=== PATIENT | female | born 1965 | race Caucasian/White ===

== ENCOUNTER 2017-11-04 13:02 | Outpatient (RCR) | payer MEDICARE, MEDICAID, SELFPAY ==
[2017-11-04 14:38] LABS: Absolute Lymphocyte Count 2.28 X10^3/ul (0.83-4.51); Absolute Neutrophil Count 7.5 X10^3/uL (2.0-7.7); Basophil# 0.02 X10^3/uL; Basophil% 0.2 % (0-1); Eosinophil# 0.01 X10^3/uL; Eosinophils% 0.1 % (0-5); Hematocrit 38.1 % (37-47); Hemoglobin 12.4 g/dl (12.0-15.0); Lymphocyte # 2.28 X10^3/ul (4.0); Lymphocyte % 21.8 % (19-41); Mean Corp Hgb Conc 32.5 g/gl (32-36); Mean Corpuscular Volume 89.2 fL (81-99); Mean Platelet Vol. 10.8 fl (6.2-12.0); Monocyte# 0.64 X10^3/uL; Monocyte% 6.1 % (0-10); Neutrophil # 7.49 X10^3/uL (2.7-7.7); Neutrophil % 71.4 % (47-70); Platelet Count 174 K/mm3 (150-450); RBC Distribution Width CV 15.2 % (11.6-14.6); RBC Distribution Width SD 49.5 fl (35.1-43.9); Red Blood Count 4.27 M/mm3 (4.2-5.4); White Blood Count 10.5 K/mm3 (4.4-11.0)
[2017-11-04 14:42] LABS: POSITIVE COUNT NO; POSITIVE DIFFERENTIAL NO; POSITIVE MORPHOLOGY NO
== END 2017-11-04 13:20 | disposition home or self-care (01) ==
LOC: LAB 13:02
PROVIDERS: Family Provider Family Medicine; PCP Family Medicine; Visit Provider Psychiatry & Neurology Psychiatry
DX: F20.0 Paranoid schizophrenia (principal); Z79.899 Other long term (current) drug therapy
CPT/HCPCS: 36415; 85025

== ENCOUNTER → 2017-11-24 16:41 | Outpatient (CLI) | payer MEDICARE, MEDICAID, SELFPAY ==
[2017-11-24 18:23] LABS: Anion Gap 10 (5-15); BUN 9 mg/dL (7-18); BUN/Creat Ratio 12.5 RATIO (10-20); Calcium,Total 9.1 mg/dL (8.5-10.1); Chloride 96 mmol/L (98-107); Creatinine, Serum 0.72 mg/dL (0.55-1.02); EST Glomerular Filtration Rate 90 mL/min (>60); Est Glom Filt Rate - Afr Amer 109 mL/min (>60); Glucose 221 mg/dL (74-106); Potassium 3.8 mmol/L (3.5-5.1); Sodium Level 135 mmol/L (136-145)
== END ==
PROVIDERS: Family Provider Family Medicine; PCP Family Medicine; Visit Provider Family Medicine
DX: E87.1 Hypo-osmolality and hyponatremia (principal)
CPT/HCPCS: 80048

== ENCOUNTER 2017-11-25 08:22 | Outpatient (RCR) | payer MEDICARE, MEDICAID, SELFPAY ==
[2017-10-17 14:59] VITALS: BMI 34.1
[2017-10-22 07:59] VITALS: BP 131/84
[2017-11-25 09:46] LABS: Absolute Lymphocyte Count 1.77 X10^3/ul (0.83-4.51); Absolute Neutrophil Count 9.2 X10^3/uL (2.0-7.7); Basophil# 0.08 X10^3/uL; Basophil% 0.7 % (0-1); Hematocrit 39.8 % (37-47); Hemoglobin 12.9 g/dl (12.0-15.0); Lymphocyte # 1.77 X10^3/ul (4.0); Mean Corp Hgb Conc 32.4 g/gl (32-36); Mean Corpuscular Hgb 29.1 pg (27.0-32.0); Mean Corpuscular Volume 89.6 fL (81-99); Monocyte% 5.9 % (0-10); Neutrophil # 9.24 X10^3/uL (2.7-7.7); Neutrophil % 78.2 % (47-70); POSITIVE COUNT NO; POSITIVE DIFFERENTIAL NO; POSITIVE MORPHOLOGY NO; Platelet Count 211 K/mm3 (150-450); RBC Distribution Width CV 15.2 % (11.6-14.6); RBC Distribution Width SD 49.3 fl (35.1-43.9); Red Blood Count 4.44 M/mm3 (4.2-5.4); White Blood Count 11.8 K/mm3 (4.4-11.0)
== END 2017-11-25 09:00 | disposition home or self-care (01) ==
LOC: LAB 08:22
PROVIDERS: Family Provider Family Medicine; PCP Family Medicine; Visit Provider Psychiatry & Neurology Psychiatry
DX: F20.0 Paranoid schizophrenia (principal); Z79.899 Other long term (current) drug therapy
CPT/HCPCS: 36415; 85025

== ENCOUNTER → 2017-11-27 16:40 | Outpatient (CLI) | payer MEDICARE, MEDICAID, SELFPAY ==
[2017-11-27 17:38] LABS: Anion Gap 11 (5-15); BUN 13 mg/dL (7-18); BUN/Creat Ratio 18.7 RATIO (10-20); Calcium,Total 9.2 mg/dL (8.5-10.1); Chloride 100 mmol/L (98-107); EST Glomerular Filtration Rate 93 mL/min (>60); Est Glom Filt Rate - Afr Amer 113 mL/min (>60); Glucose 153 mg/dL (74-106); Magnesium 1.8 mg/dL (1.6-2.6); Potassium 3.9 mmol/L (3.5-5.1); Sodium Level 135 mmol/L (136-145); Thyroid Stim Hormone (TSH) 1.44 uIU/mL (0.358-3.74)
== END ==
PROVIDERS: Family Provider Family Medicine; PCP Family Medicine; Visit Provider Internal Medicine Cardiovascular Disease
DX: R00.2 Palpitations (principal)
CPT/HCPCS: 80048; 83735; 84443

== ENCOUNTER 2017-12-25 08:32 | Outpatient (RCR) | payer MEDICARE, MEDICAID, SELFPAY ==
[2017-12-25 09:14] LABS: Absolute Lymphocyte Count 2.04 X10^3/ul (0.83-4.51); Absolute Neutrophil Count 6.7 X10^3/uL (2.0-7.7); Basophil# 0.03 X10^3/uL; Basophil% 0.3 % (0-1); Hematocrit 40.4 % (37-47); Hemoglobin 13.1 g/dl (12.0-15.0); Lymphocyte # 2.04 X10^3/ul (4.0); Lymphocyte % 21.5 % (19-41); Mean Corp Hgb Conc 32.4 g/gl (32-36); Mean Corpuscular Volume 89.6 fL (81-99); Mean Platelet Vol. 10.2 fl (6.2-12.0); Monocyte# 0.68 X10^3/uL; Monocyte% 7.2 % (0-10); Neutrophil # 6.73 X10^3/uL (2.7-7.7); Neutrophil % 70.9 % (47-70); Platelet Count 214 K/mm3 (150-450); RBC Distribution Width CV 14.9 % (11.6-14.6); RBC Distribution Width SD 48.9 fl (35.1-43.9); Red Blood Count 4.51 M/mm3 (4.2-5.4); White Blood Count 9.5 K/mm3 (4.4-11.0)
[2017-12-25 09:20] LABS: POSITIVE COUNT NO; POSITIVE DIFFERENTIAL NO; POSITIVE MORPHOLOGY NO
== END 2017-12-25 09:00 | disposition home or self-care (01) ==
LOC: LAB 08:32
PROVIDERS: Family Provider Family Medicine; PCP Family Medicine; Visit Provider Psychiatry & Neurology Psychiatry
DX: F20.0 Paranoid schizophrenia (principal); Z79.899 Other long term (current) drug therapy
CPT/HCPCS: 36415; 85025

== ENCOUNTER → 2018-01-20 12:21 | Outpatient (CLI) | payer MEDICARE, MEDICAID, SELFPAY ==
[2018-01-20 12:41] LABS: Absolute Lymphocyte Count 1.77 X10^3/ul (0.83-4.51); Absolute Neutrophil Count 6.4 X10^3/uL (2.0-7.7); Basophil# 0.03 X10^3/uL; Basophil% 0.3 % (0-1); Eosinophil# 0.01 X10^3/uL; Eosinophils% 0.1 % (0-5); Hematocrit 39.9 % (37-47); Hemoglobin 12.8 g/dl (12.0-15.0); Lymphocyte # 1.77 X10^3/ul (4.0); Lymphocyte % 20.2 % (19-41); Mean Corp Hgb Conc 32.1 g/gl (32-36); Mean Corpuscular Volume 90.3 fL (81-99); Monocyte# 0.56 X10^3/uL; Monocyte% 6.4 % (0-10); Neutrophil # 6.39 X10^3/uL (2.7-7.7); Neutrophil % 72.8 % (47-70); Platelet Count 206 K/mm3 (150-450); RBC Distribution Width CV 14.5 % (11.6-14.6); Red Blood Count 4.42 M/mm3 (4.2-5.4); White Blood Count 8.8 K/mm3 (4.4-11.0)
[2018-01-20 12:48] LABS: POSITIVE COUNT NO; POSITIVE DIFFERENTIAL NO; POSITIVE MORPHOLOGY NO
[2018-01-20 12:50] LABS: AST(SGOT) 36 U/L (15-37); Alanine Aminotransfer ALT/SGPT 67 U/L (13-56); Albumin, Serum 3.8 g/dL (3.2-5.0); Alkaline Phosphatase 135 U/L (45-117); Anion Gap 10 (5-15); BUN 7 mg/dL (7-18); BUN/Creat Ratio 10.9 RATIO (10-20); Bilirubin, Direct 0.08 mg/dL (0.00-0.30); CPK Total, Creatine Kinase 37 U/L (26-192); Chloride 102 mmol/L (98-107); Cholesterol 166 mg/dL (200); Creatinine, Serum 0.64 mg/dL (0.55-1.02); EST Glomerular Filtration Rate 102 mL/min (>60); Est Glom Filt Rate - Afr Amer 123 mL/min (>60); Globulin 3.9 g/dL (2.2-4.2); Glucose 138 mg/dL (74-106); High Density Lipoprotein 54 mg/dL; Iron 46 ug/dL (50-170); Iron Binding Capacity,Total 340 ug/dL (250-450); Potassium 4.4 mmol/L (3.5-5.1); Protein, Total 7.7 g/dL (6.4-8.2); Sodium Level 138 mmol/L (136-145); Triglycerides 210 mg/dL; Very Low Density Lipoprotein 42 mg/dL (5-40)
[2018-01-20 12:56] LABS: Hemoglobin A1c 6.8 % (4.2-6.3)
[2018-01-21 08:21] LABS: Vitamin D,25 Hydroxy 39.6 ng/mL (29.95-100.01)
== END ==
PROVIDERS: Family Provider Family Medicine; PCP Family Medicine; Visit Provider Family Medicine
DX: E55.9 Vitamin D deficiency, unspecified (principal); E78.2 Mixed hyperlipidemia; E11.21 Type 2 diabetes mellitus with diabetic nephropathy; Z79.4 Long term (current) use of insulin; E87.79 Other fluid overload; G25.81 Restless legs syndrome
CPT/HCPCS: 80048; 80061; 80076; 82306; 82550; 83036; 83540; 83550; 85025

== ENCOUNTER 2018-01-22 10:46 | Outpatient (RCR) | payer MEDICARE, MEDICAID, SELFPAY ==
[2018-01-22 11:47] LABS: Absolute Lymphocyte Count 2.39 X10^3/ul (0.83-4.51); Absolute Neutrophil Count 6.1 X10^3/uL (2.0-7.7); Basophil# 0.01 X10^3/uL; Basophil% 0.1 % (0-1); Eosinophil# 0.01 X10^3/uL; Eosinophils% 0.1 % (0-5); Hematocrit 39.3 % (37-47); Hemoglobin 12.3 g/dl (12.0-15.0); Lymphocyte # 2.39 X10^3/ul (4.0); Lymphocyte % 26.5 % (19-41); Mean Corp Hgb Conc 31.3 g/gl (32-36); Mean Corpuscular Hgb 28.2 pg (27.0-32.0); Mean Corpuscular Volume 90.1 fL (81-99); Monocyte# 0.47 X10^3/uL; Monocyte% 5.2 % (0-10); Neutrophil # 6.12 X10^3/uL (2.7-7.7); Platelet Count 206 K/mm3 (150-450); RBC Distribution Width CV 14.5 % (11.6-14.6); RBC Distribution Width SD 47.6 fl (35.1-43.9); Red Blood Count 4.36 M/mm3 (4.2-5.4)
[2018-01-22 11:50] LABS: POSITIVE COUNT NO; POSITIVE DIFFERENTIAL NO; POSITIVE MORPHOLOGY NO
== END 2018-01-22 11:00 | disposition home or self-care (01) ==
LOC: LAB 10:46
PROVIDERS: Family Provider Family Medicine; PCP Family Medicine; Visit Provider Psychiatry & Neurology Psychiatry
DX: F20.0 Paranoid schizophrenia (principal); Z79.899 Other long term (current) drug therapy
CPT/HCPCS: 36415; 85025

== ENCOUNTER 2018-02-08 09:44 | Emergency (ER) | payer MEDICARE, MEDICAID, SELFPAY ==
[2018-02-08 09:45] VITALS: BP 143/89; PULSE 115; RESP 18; TEMP 36.5; O2SAT 95; BMI 36.2
--- NOTE | 2018-02-08 10:11 | ED.VISSUMM ---
- ER Visit Summary Date of Service: 02/08/18 Chief Complaint: [Foreign body sensation left eye] History of Present Illness: The patient is a 52 F [presents the emergency department from urgent care with left eye discomfort that started this morning. Patient states that she woke up this morning and felt like there was something in her eye so she rubbed her eye vigorously. Patient developed discomfort. She was seen at the urgent care and had fluorescein dye instilled as well as tetracaine and her pain significantly improved. Apparently there was uptake of floor seen and was sent over to ER for slit-lamp exam. Patient denies any photophobia or visual change at this time.] Physical Examination: [HEENT-PERRLA, EOMI. Cranial nerves II through XII grossly intact. TMs clear. Mucous membranes moist. No adenopathy. Left eye-there is focal conjunctival injection medially. Eyelids were everted no foreign bodies noted. No floor seen available in the emergency department. I did perform a slit lamp exam and I do not see any defects in the cornea or abrasions. Patient does have superficial abrasion noted of the medial conjunctiva. Cardiovascular-regular rate and rhythm without murmur or ectopy Lungs-clear to auscultation, chest wall stable without crepitus or subcu emphysema Abdomen-normoactive bowel sounds, soft, nontender, no rebound or rigidity, no peritoneal signs. Extremities-intact ?4, normal range of motion, normal pulses, atraumatic] Test Results: [None indicated] Emergency Department Course and Treatment: Patient will be started on gentamicin ophthalmic drops [] Treatment Plan: [Patient to follow-up with director index within the next 1-2 days. Patient actually has an appointment scheduled with director index in 2 days. Patient advised to call ophthalmology tomorrow and if she still has significant discomfort to be seen tomorrow.] Disposition: [Discharged home in stable condition] Impression: [Conjunctivitis Left conjunctival abrasion] This note was generated with [employer] dictation software. It may contain incorrect words, spelling, and punctuation that were not noted in review of the chart prior to signing ED Disposition - Plan for ED Patient: Chief Complaint: Eye Problem Referrals: Boris Vance MD [Primary Care Provider] -
--- NOTE | 2018-02-08 10:13 | ED.DEP ---
ED Disposition - Plan for ED Patient: Chief Complaint: Eye Problem Prescriptions: Hydrocodone Bitart/Apap 5-325 [[place] 5/325] 1 - 2 tab PO Q4H PRN PRN 3 Days #12 tab PRN Reason: Pain Referrals: Boris Vance MD [Primary Care Provider] - Additional Instructions: you have conjunctivitis and a scratch on your eye
--- NOTE | 2018-02-08 10:16 | ED.DEP ---
ED Disposition - Plan for ED Patient: Chief Complaint: Eye Problem Prescriptions: Hydrocodone Bitart/Apap 5-325 [[place] 5/325] 1 - 2 tab PO Q4H PRN PRN 3 Days #12 tab PRN Reason: Pain Referrals: Boris Vance MD [Primary Care Provider] - Additional Instructions: you have conjunctivitis and a scratch on your eye
[2018-02-08] MEDS: Gentamicin Sulfate 1 OPTH.BTL 2 DRP LEFT EYE (10:20)
== END 2018-02-08 10:29 | disposition home or self-care (01) ==
PROVIDERS: Emergency Provider Emergency Medicine; Family Provider Family Medicine; PCP Family Medicine
DX: H10.32 Unspecified acute conjunctivitis, left eye (principal); S05.02XA Injury of conjunctiva and corneal abrasion without foreign body, left eye, initial encounter; X58.XXXA Exposure to other specified factors, initial encounter; Y93.89 Activity, other specified; Y92.9 Unspecified place or not applicable; F20.9 Schizophrenia, unspecified; Z79.899 Other long term (current) drug therapy
CPT/HCPCS: 99283

== ENCOUNTER 2018-02-19 08:34 | Outpatient (RCR) | payer MEDICARE, MEDICAID, SELFPAY ==
[2018-02-19 09:24] LABS: Absolute Lymphocyte Count 2.05 X10^3/ul (0.83-4.51); Absolute Neutrophil Count 4.8 X10^3/uL (2.0-7.7); Basophil# 0.02 X10^3/uL; Basophil% 0.3 % (0-1); Eosinophil# 0.01 X10^3/uL; Eosinophils% 0.1 % (0-5); Hematocrit 39.7 % (37-47); Lymphocyte # 2.05 X10^3/ul (4.0); Lymphocyte % 27.7 % (19-41); Mean Corp Hgb Conc 32.7 g/gl (32-36); Mean Corpuscular Hgb 29.3 pg (27.0-32.0); Mean Corpuscular Volume 89.6 fL (81-99); Mean Platelet Vol. 10.2 fl (6.2-12.0); Monocyte# 0.51 X10^3/uL; Monocyte% 6.9 % (0-10); Neutrophil # 4.78 X10^3/uL (2.7-7.7); Neutrophil % 64.7 % (47-70); Platelet Count 195 K/mm3 (150-450); RBC Distribution Width CV 14.1 % (11.6-14.6); RBC Distribution Width SD 45.3 fl (35.1-43.9); Red Blood Count 4.43 M/mm3 (4.2-5.4); White Blood Count 7.4 K/mm3 (4.4-11.0)
[2018-02-19 09:28] LABS: POSITIVE COUNT NO; POSITIVE DIFFERENTIAL NO; POSITIVE MORPHOLOGY NO
== END 2018-02-19 09:00 | disposition home or self-care (01) ==
LOC: LAB 08:34
PROVIDERS: Family Provider Family Medicine; PCP Family Medicine; Visit Provider Psychiatry & Neurology Psychiatry
DX: F20.0 Paranoid schizophrenia (principal); Z79.899 Other long term (current) drug therapy
CPT/HCPCS: 36415; 85025

== ENCOUNTER → 2018-03-16 16:17 | Outpatient (CLI) | payer MEDICARE, MEDICAID, SELFPAY ==
--- NOTE | 2018-03-16 16:17 | DT_ITS ---
This patient was seen during an EMR downtime March 16, 2018 - March 23, 2018. This patient may have a combination of paper and electronic documentation or all paper documentation. All documentation is viewable within the e-chart portion of [employer] for each patient visit.
[2018-03-20 20:56] LABS: Hematocrit 42.6 % (37-47); Hemoglobin 13.6 g/dl (12.0-15.0); Mean Corp Hgb Conc 31.9 g/gl (32-36); Mean Corpuscular Hgb 28.6 pg (27.0-32.0); Mean Corpuscular Volume 89.7 fL (81-99); Mean Platelet Vol. 11.1 fl (6.2-12.0); Platelet Count 200 K/mm3 (150-450); RBC Distribution Width CV 14.6 % (11.6-14.6); RBC Distribution Width SD 47.7 fl (35.1-43.9); Red Blood Count 4.75 M/mm3 (4.2-5.4)
[2018-03-20 20:57] LABS: Absolute Lymphocyte Count 2.64 X10^3/ul (0.83-4.51); Absolute Neutrophil Count 10.3 X10^3/uL (2.0-7.7); Basophil# 0.02 X10^3/uL; Basophil% 0.1 % (0-1); Eosinophil# 0.01 X10^3/uL; Eosinophils% 0.1 % (0-5); Lymphocyte # 2.64 X10^3/ul (4.0); Lymphocyte % 18.8 % (19-41); Monocyte# 1.01 X10^3/uL; Monocyte% 7.2 % (0-10); Neutrophil # 10.33 X10^3/uL (2.7-7.7); Neutrophil % 73.6 % (47-70); POSITIVE COUNT NO; POSITIVE DIFFERENTIAL NO; POSITIVE MORPHOLOGY NO
[2018-03-20 20:58] LABS: Anion Gap 12 (5-15); BUN 10 mg/dL (7-18); BUN/Creat Ratio 16.1 RATIO (10-20); Chloride 101 mmol/L (98-107); Creatinine, Serum 0.62 mg/dL (0.55-1.02); EST Glomerular Filtration Rate 107 mL/min (>60); Est Glom Filt Rate - Afr Amer 130 mL/min (>60); Glucose 84 mg/dL (74-106); Potassium 4.1 mmol/L (3.5-5.1); Sodium Level 138 mmol/L (136-145)
== END ==
PROVIDERS: Family Provider Family Medicine; PCP Family Medicine; Visit Provider Family Medicine
DX: R06.2 Wheezing (principal)
CPT/HCPCS: 80048; 85025

== ENCOUNTER → 2018-03-19 09:34 | Outpatient (CLI) | payer MEDICARE, MEDICAID, SELFPAY ==
--- NOTE | 2018-03-19 09:34 | DT_ITS ---
This patient was seen during an EMR downtime March 16, 2018 - March 23, 2018. This patient may have a combination of paper and electronic documentation or all paper documentation. All documentation is viewable within the e-chart portion of [employer] for each patient visit.
[2018-03-24 01:16] LABS: Hematocrit 42.7 % (37-47); Hemoglobin 13.9 g/dl (12.0-15.0); Mean Corp Hgb Conc 32.6 g/gl (32-36); Mean Corpuscular Hgb 28.6 pg (27.0-32.0); Mean Corpuscular Volume 87.9 fL (81-99); Platelet Count 233 K/mm3 (150-450); RBC Distribution Width CV 14.4 % (11.6-14.6); RBC Distribution Width SD 46.4 fl (35.1-43.9); Red Blood Count 4.86 M/mm3 (4.2-5.4); White Blood Count 13.9 K/mm3 (4.4-11.0)
[2018-03-24 01:17] LABS: Absolute Lymphocyte Count 3.95 X10^3/ul (0.83-4.51); Absolute Neutrophil Count 8.9 X10^3/uL (2.0-7.7); Basophil# 0.02 X10^3/uL; Basophil% 0.1 % (0-1); Eosinophil# 0.01 X10^3/uL; Eosinophils% 0.1 % (0-5); Lymphocyte # 3.95 X10^3/ul (4.0); Lymphocyte % 28.5 % (19-41); Mean Platelet Vol. 10.6 fl (6.2-12.0); Monocyte# 0.92 X10^3/uL; Monocyte% 6.6 % (0-10); Neutrophil # 8.94 X10^3/uL (2.7-7.7); Neutrophil % 64.4 % (47-70); POSITIVE COUNT NO; POSITIVE DIFFERENTIAL NO; POSITIVE MORPHOLOGY NO
== END ==
PROVIDERS: Family Provider Family Medicine; PCP Family Medicine
DX: Z79.899 Other long term (current) drug therapy (principal)
CPT/HCPCS: 36415; 85025

== ENCOUNTER → 2018-04-08 12:03 | Outpatient (CLI) | payer MEDICARE, MEDICAID, SELFPAY ==
[2018-04-08 12:16] LABS: Absolute Lymphocyte Count 2.13 X10^3/ul (0.83-4.51); Absolute Neutrophil Count 5.8 X10^3/uL (2.0-7.7); Basophil# 0.01 X10^3/uL; Basophil% 0.1 % (0-1); Hematocrit 41.1 % (37-47); Lymphocyte # 2.13 X10^3/ul (4.0); Lymphocyte % 25.2 % (19-41); Mean Corp Hgb Conc 31.6 g/gl (32-36); Mean Corpuscular Hgb 27.8 pg (27.0-32.0); Mean Corpuscular Volume 87.8 fL (81-99); Mean Platelet Vol. 10.7 fl (6.2-12.0); Monocyte# 0.49 X10^3/uL; Monocyte% 5.8 % (0-10); Neutrophil % 68.8 % (47-70); Platelet Count 214 K/mm3 (150-450); RBC Distribution Width CV 14.8 % (11.6-14.6); Red Blood Count 4.68 M/mm3 (4.2-5.4); White Blood Count 8.4 K/mm3 (4.4-11.0)
[2018-04-08 12:23] LABS: POSITIVE COUNT NO; POSITIVE DIFFERENTIAL NO; POSITIVE MORPHOLOGY NO
== END ==
PROVIDERS: Family Provider Family Medicine; PCP Family Medicine; Visit Provider Family Medicine
DX: D72.829 Elevated white blood cell count, unspecified (principal)
CPT/HCPCS: 85025

== ENCOUNTER → 2018-04-30 09:47 | Outpatient (CLI) | payer MEDICARE, MEDICAID, SELFPAY ==
[2018-04-30 13:20] LABS: Absolute Lymphocyte Count 2.29 X10^3/ul (0.83-4.51); Absolute Neutrophil Count 6.1 X10^3/uL (2.0-7.7); Basophil# 0.02 X10^3/uL; Basophil% 0.2 % (0-1); Eosinophil# 0.01 X10^3/uL; Eosinophils% 0.1 % (0-5); Hematocrit 39.2 % (37-47); Hemoglobin 12.9 g/dl (12.0-15.0); Lymphocyte # 2.29 X10^3/ul (4.0); Lymphocyte % 24.7 % (19-41); Mean Corp Hgb Conc 32.9 g/gl (32-36); Mean Corpuscular Hgb 28.9 pg (27.0-32.0); Mean Corpuscular Volume 87.9 fL (81-99); Mean Platelet Vol. 11.7 fl (6.2-12.0); Monocyte# 0.79 X10^3/uL; Monocyte% 8.5 % (0-10); Neutrophil # 6.13 X10^3/uL (2.7-7.7); Neutrophil % 66.3 % (47-70); POSITIVE COUNT NO; POSITIVE DIFFERENTIAL NO; POSITIVE MORPHOLOGY NO; Platelet Count 190 K/mm3 (150-450); RBC Distribution Width CV 14.8 % (11.6-14.6); RBC Distribution Width SD 46.8 fl (35.1-43.9); Red Blood Count 4.46 M/mm3 (4.2-5.4); White Blood Count 9.3 K/mm3 (4.4-11.0)
[2018-04-30 13:37] LABS: BUN 8 mg/dL (7-18); Creatinine, Serum 0.66 mg/dL (0.55-1.02); EST Glomerular Filtration Rate 99 mL/min (>60); Glucose 127 mg/dL (74-106); Hemoglobin A1c 7.5 % (4.2-6.3)
[2018-04-30 13:38] LABS: ALB/GLOB Ratio 0.9 RATIO (0.9-2.4); AST(SGOT) 20 U/L (15-37); Alanine Aminotransfer ALT/SGPT 48 U/L (13-56); Albumin, Serum 3.8 g/dL (3.2-5.0); Alkaline Phosphatase 135 U/L (45-117); Anion Gap 10 (5-15); BUN/Creat Ratio 12.1 RATIO (10-20); Calcium,Total 8.7 mg/dL (8.5-10.1); Chloride 101 mmol/L (98-107); Cholesterol 168 mg/dL (200); Est Glom Filt Rate - Afr Amer 120 mL/min (>60); Globulin 4.2 g/dL (2.2-4.2); High Density Lipoprotein 55 mg/dL; Sodium Level 135 mmol/L (136-145); Thyroid Stim Hormone (TSH) 1.17 uIU/mL (0.358-3.74); Triglycerides 173 mg/dL; Very Low Density Lipoprotein 35 mg/dL (5-40)
[2018-04-30 13:43] LABS: BNP,B-Type NATRIURETIC PEPTIDE < 2.0 pg/mL (0-100)
[2018-05-01 08:14] LABS: Vitamin D,25 Hydroxy 30.2 ng/mL (29.95-100.01)
== END ==
PROVIDERS: Family Provider Family Medicine; PCP Family Medicine; Visit Provider Family Medicine
DX: E78.2 Mixed hyperlipidemia (principal); R53.83 Other fatigue; I50.31 Acute diastolic (congestive) heart failure; E55.9 Vitamin D deficiency, unspecified; E11.21 Type 2 diabetes mellitus with diabetic nephropathy; Z79.4 Long term (current) use of insulin
CPT/HCPCS: 80053; 80061; 82306; 83036; 83880; 84443; 85025

== ENCOUNTER 2018-05-12 09:13 | Outpatient (RCR) | payer MEDICARE, MEDICAID, SELFPAY ==
[2018-04-14 09:53] LABS: Absolute Lymphocyte Count 2.26 X10^3/ul (0.83-4.51); Absolute Neutrophil Count 6.4 X10^3/uL (2.0-7.7); Basophil# 0.02 X10^3/uL; Basophil% 0.2 % (0-1); Hematocrit 40.1 % (37-47); Hemoglobin 13.1 g/dl (12.0-15.0); Lymphocyte # 2.26 X10^3/ul (4.0); Lymphocyte % 23.9 % (19-41); Mean Corp Hgb Conc 32.7 g/gl (32-36); Mean Corpuscular Hgb 28.8 pg (27.0-32.0); Mean Corpuscular Volume 88.1 fL (81-99); Mean Platelet Vol. 10.6 fl (6.2-12.0); Monocyte# 0.76 X10^3/uL; Monocyte% 8.1 % (0-10); Neutrophil # 6.38 X10^3/uL (2.7-7.7); Neutrophil % 67.6 % (47-70); Platelet Count 216 K/mm3 (150-450); RBC Distribution Width CV 14.6 % (11.6-14.6); RBC Distribution Width SD 46.7 fl (35.1-43.9); Red Blood Count 4.55 M/mm3 (4.2-5.4); White Blood Count 9.4 K/mm3 (4.4-11.0)
[2018-04-14 09:55] LABS: POSITIVE COUNT NO; POSITIVE DIFFERENTIAL NO; POSITIVE MORPHOLOGY NO
[2018-05-12 10:11] LABS: Absolute Lymphocyte Count 2.17 X10^3/ul (0.83-4.51); Absolute Neutrophil Count 8.9 X10^3/uL (2.0-7.7); Basophil# 0.01 X10^3/uL; Basophil% 0.1 % (0-1); Eosinophil# 0.01 X10^3/uL; Eosinophils% 0.1 % (0-5); Hematocrit 42.2 % (37-47); Hemoglobin 13.4 g/dl (12.0-15.0); Lymphocyte # 2.17 X10^3/ul (4.0); Lymphocyte % 18.5 % (19-41); Mean Corp Hgb Conc 31.8 g/gl (32-36); Mean Corpuscular Hgb 28.5 pg (27.0-32.0); Mean Corpuscular Volume 89.8 fL (81-99); Mean Platelet Vol. 10.1 fl (6.2-12.0); Monocyte# 0.65 X10^3/uL; Monocyte% 5.5 % (0-10); Neutrophil # 8.86 X10^3/uL (2.7-7.7); Neutrophil % 75.6 % (47-70); Platelet Count 208 K/mm3 (150-450); RBC Distribution Width CV 14.8 % (11.6-14.6); RBC Distribution Width SD 48.2 fl (35.1-43.9); White Blood Count 11.7 K/mm3 (4.4-11.0)
[2018-05-12 10:16] LABS: POSITIVE COUNT NO; POSITIVE DIFFERENTIAL NO; POSITIVE MORPHOLOGY NO
== END 2018-05-12 10:00 | disposition home or self-care (01) ==
LOC: LAB 09:13
PROVIDERS: Family Provider Family Medicine; PCP Family Medicine; Visit Provider Psychiatry & Neurology Psychiatry
DX: F20.0 Paranoid schizophrenia (principal); Z79.899 Other long term (current) drug therapy
CPT/HCPCS: 36415; 85025

== ENCOUNTER 2018-06-09 09:24 | Outpatient (RCR) | payer MEDICARE, MEDICAID, SELFPAY ==
[2018-06-09 10:31] LABS: Absolute Lymphocyte Count 2.31 X10^3/ul (0.83-4.51); Absolute Neutrophil Count 6.8 X10^3/uL (2.0-7.7); Basophil# 0.01 X10^3/uL; Basophil% 0.1 % (0-1); Differential Indicated SCAN CRITERIA MET; Hematocrit 40.5 % (37-47); Hemoglobin 12.8 g/dl (12.0-15.0); Lymphocyte # 2.31 X10^3/ul (4.0); Lymphocyte % 23.3 % (19-41); Mean Corp Hgb Conc 31.6 g/gl (32-36); Mean Corpuscular Hgb 28.2 pg (27.0-32.0); Mean Corpuscular Volume 89.2 fL (81-99); Mean Platelet Vol. 10.3 fl (6.2-12.0); Monocyte# 0.74 X10^3/uL; Monocyte% 7.5 % (0-10); Neutrophil # 6.84 X10^3/uL (2.7-7.7); POSITIVE COUNT NO; POSITIVE DIFFERENTIAL NO; POSITIVE MORPHOLOGY YES; Platelet Count 208 K/mm3 (150-450); RBC Distribution Width CV 14.4 % (11.6-14.6); RBC Distribution Width SD 46.6 fl (35.1-43.9); Red Blood Count 4.54 M/mm3 (4.2-5.4); White Blood Count 9.9 K/mm3 (4.4-11.0)
== END 2018-06-09 11:00 | disposition home or self-care (01) ==
LOC: LAB 09:24
PROVIDERS: Family Provider Family Medicine; PCP Family Medicine; Visit Provider Psychiatry & Neurology Psychiatry
DX: F20.0 Paranoid schizophrenia (principal); Z79.899 Other long term (current) drug therapy
CPT/HCPCS: 36415; 85025

== ENCOUNTER 2018-07-07 09:32 | Outpatient (RCR) | payer MEDICARE, MEDICAID, SELFPAY ==
[2018-07-07 11:01] LABS: Absolute Lymphocyte Count 2.39 X10^3/ul (0.83-4.51); Basophil# 0.02 X10^3/uL; Basophil% 0.2 % (0-1); Hematocrit 40.2 % (37-47); Hemoglobin 13.2 g/dl (12.0-15.0); Lymphocyte # 2.39 X10^3/ul (4.0); Mean Corp Hgb Conc 32.8 g/gl (32-36); Mean Corpuscular Hgb 28.8 pg (27.0-32.0); Mean Corpuscular Volume 87.8 fL (81-99); Mean Platelet Vol. 10.6 fl (6.2-12.0); Monocyte# 0.79 X10^3/uL; Monocyte% 8.6 % (0-10); Neutrophil # 5.98 X10^3/uL (2.7-7.7); Neutrophil % 65.1 % (47-70); Platelet Count 213 K/mm3 (150-450); RBC Distribution Width CV 14.1 % (11.6-14.6); RBC Distribution Width SD 44.8 fl (35.1-43.9); Red Blood Count 4.58 M/mm3 (4.2-5.4); White Blood Count 9.2 K/mm3 (4.4-11.0)
[2018-07-07 11:11] LABS: POSITIVE COUNT NO; POSITIVE DIFFERENTIAL NO; POSITIVE MORPHOLOGY NO
== END 2018-07-07 11:00 | disposition home or self-care (01) ==
LOC: LAB 09:32
PROVIDERS: Family Provider Family Medicine; PCP Family Medicine; Visit Provider Psychiatry & Neurology Psychiatry
DX: F20.0 Paranoid schizophrenia (principal); Z79.899 Other long term (current) drug therapy
CPT/HCPCS: 36415; 85025

== ENCOUNTER 2018-07-18 18:51 | Emergency (ER) | payer MEDICARE, MEDICAID, SELFPAY ==
[2018-07-18 18:53] VITALS: BP 133/73; PULSE 114; RESP 17; TEMP 36.5; O2SAT 95; BMI 36.8
--- NOTE | 2018-07-18 19:13 | RAD_ITS ---
STUDY: X-RAY - LEFT HAND REASON FOR EXAM: Female, 52 years old. Thumb injury. Finger smashed in car door. TECHNIQUE: Three view(s) of the hand. COMPARISON: None. FINDINGS: Bones: There is a minimally displaced comminuted fracture of the distal phalanx of the fifth digit. Joints: There are osteoarthritic changes. Soft tissues: The soft tissues are unremarkable. Foreign body: None RAD/Hand Min 3 Views IMPRESSION: First distal phalangeal fracture as described. Electronically Signed: Buck Jackson MD at 19:35 EDT , Service support ,
[2018-07-18] MEDS: Diphth,Pertuss(Acell),Tet Vac 0.5 ML Vial IM (19:29)
--- NOTE | 2018-07-18 19:48 | ED.DCSUM_ITS ---
- ER Visit Summary Date of Service: 07/18/18 Chief Complaint: Left thumb injury History of Present Illness: The patient is a 52 F who shut her left thumb in a car door. This happened about 2 hours prior to her presentation here. She sustained a small superficial laceration at the base of the thumb. She has painful range of motion. Denies any other symptoms. Last tetanus is unknown Physical Examination: Vital signs are reviewed. Left hand exam reveals tenderness at the base of the left thumb nail. There is a small superficial laceration at the base of the thumb. There is less than a 10% subungual hematoma under the thumbnail. Test Results: X-rays reveal a distal phalanx fracture of the left thumb Emergency Department Course and Treatment: The patient's tetanus is updated. Dermabond was used to close the wound at the base of the thumb. It was not deep. This is not an open fracture. I did not perform trephination because it is less than 10% of the nail. An AlumaFoam splint was placed on the thumb. She will use Tylenol or ibuprofen for pain. She will follow-up with her PCP. Treatment Plan: [] Disposition: Discharge Impression: Left distal phalanx fracture, left thumb, closed Superficial laceration, left thumb Dermabond by ED physician This note was generated with [employer] dictation software. It may contain incorrect words, spelling, and punctuation that were not noted in review of the chart prior to signing ED Disposition - Plan for ED Patient: Disposition: Home or Assisted Living Chief Complaint: Laceration Instructions: ED Fx Finger Closed Referrals: Boris Vance MD [Primary Care Provider] -
== END 2018-07-18 20:17 | disposition home or self-care (01) ==
PROVIDERS: Emergency Provider Emergency Medicine; Family Provider Family Medicine; PCP Family Medicine
DX: S62.522A Displaced fracture of distal phalanx of left thumb, initial encounter for closed fracture (principal); S61.112A Laceration without foreign body of left thumb with damage to nail, initial encounter; W23.0XXA Caught, crushed, jammed, or pinched between moving objects, initial encounter; Y93.9 Activity, unspecified; Y92.9 Unspecified place or not applicable; E11.9 Type 2 diabetes mellitus without complications; J44.9 Chronic obstructive pulmonary disease, unspecified; F20.9 Schizophrenia, unspecified; Z79.4 Long term (current) use of insulin; Z79.82 Long term (current) use of aspirin; Z79.899 Other long term (current) drug therapy
CPT/HCPCS: 12001; 73130; 90471; 90715; 99284

== ENCOUNTER 2018-07-21 18:00 | Outpatient (RCR) | payer MEDICARE, MEDICAID, SELFPAY ==
--- NOTE | 2018-05-20 14:08 | HP.PTEVAL_ITS ---
Patient's Visit Information BRENDA TAFOYA is a 52 year old F referred to Physical Therapy by Boris Vance with a diagnosis of LOW BACK PAIN M54.5. Date of Evaluation: 05/20/18 Physical Therapist: Zeynep Solis Visit Plan Frequency: 2-3x /Week Duration: 4-6 Weeks Plan: POSTURE CORRECTION/STRENGTHENING, INSTRUCTION IN APPROPRIATE BODY MECHANICS AND ACTIVITY MODIFICATIONS. DLS STARTING WITH A NEUTRAL SPINE PROGRESSING ROM TOLERATED. ASHELY LE ROM, STRETCHING AND STRENGTHENING. HEP INSTRUCTION. MODALITIES NEEDED. - Subjective Subjective: Disability: YES - SKITZOPHRENIA. LIKES TO COOK AND CLEAN AT THE NURSING HOME. Present symptoms: BACK AND ASHELY LEG PAIN. Present since: YEARS. Pain Scale: WORST 5/10, LEAST 4/10. Currently: 4/10. Commenced as a result of: NO APPARENT REASON. Symptoms at onset: BACK. Worse: NERVES, SITTING WITHOUT BACK SUPPORT, STANDING A LONG TIME. Better: LYING DOWN - ON EITHER SIDE. Disturbed sleep: NO - PARI LINN HELPS AT NIGHT WITH LEG PAIN. Previous history/Previous treatment: UNREMARKABLE. Coughing/sneezing/straining: NEGATIVE. Gait: PATIENT REPORTS SHE HASN'T HAD ANY FALLS AND SHE DOES NOT USE A CANE OR A WALKER. PATIENT REPORTS HER BACK PAIN DOES MAKE HER HAVE TO STOP AT TIMES. Difficulty initiating urinatin: NO. Accidents: NO. Unexplained weight loss: NO. Imaging: NO. PMH: SKITZOPHRENIA, IDDM, COPD. Recent major surgery: JAW SURGERY. OTHER: MARIA D - A QUALIFIED MENTAL [employer] OFFICER FROM THE NURSING HOME THAT PATIENT LIVES AT IS WITH HER TODAY THROUGHOUT THE EVALUATION. PATIENT REPORTS SHE LIVED WITH HER MOM OR HER MOM WAS TAKING CARE OF HER MOST OF HER LIFE BUT SHE HELPED PLACE HER IN THIS HOME SO SHE WOULD BE TAKEN CARE OF IF SHE DIES. THERE ARE A LOT OF STEPS AT THE NURSING HOME AND MARIA D STATES PATIENT DOES WELL WITH THE STEPS. - Objective Sitting/Standing Posture: POOR. INCREASED KYPHOSIS. Lordosis: REDUCED. Lateral shift: NO. Relevant shift: N/A. Active Correction of posture: NE. TOLERATING PASSIVE CORRECTION FAIR IN CLINIC TODAY. Other Observations: SLOW GAIT INTO PT WITHOUT LOB AND WITHOUT ANY ASSISTIVE DEVICES. DECREASED ASHELY STRIDE LENGTH AND TRUNK ROTATION. Motor deficit: ASHELY LE STRENGTH 5/5 WITH MMT' ING EXCEPT HIPS GRADED 4/5. Sensory deficit: ASHELY LE LIGHT TOUCH SENSATION APPEARS TO BE INTACT AND SYMMETRICAL BUT FEET NT. ROM deficit: TIGHT ASHELY HIP FLEXORS, HS'S AND GASTROC SOLEUS COMPLEX'S. Reflexes: UNABLE TO ELICIT ASHELY LE DTR'S. Dural Signs: POSITIVE ASHELY LE'S. Lumbar mvmt loss: flex - MIN. ext - MONICA. R SG - MONICA. L SG - MONICA. Core strength: POOR. Palpation: NO ACUTE TENDERNESS WITH PALPATION OF THORACIC OR LUMBAR SPINE. NO ACUTE HIP TENDERNESS. OTHER: ASHELY UE ROM IS WFL. ASHELY UE STRENGTH IS GROSSLY 4-/5 WITH MMT'ING. - Goals Goal 1:: DECREASE C/O BACK AND LEG SX'S. Goal Time Frame: 4-6 Weeks Goal 2:: IMPROVE STANDING, WALKING, SOCIAL LIFE AND HOMEMAKING FUNCTION Goal Time Frame: 4-6 Weeks Goal 3:: INSTRUCT IN PROPHYLAXIS - Rehabilitation Potential Rehabilitation Potential: Fair - Anticipated Interventions Patient/Client Instruction: Educate patient on: Condition, Plan of Care, Risk Factors, Benefits of Fitness Program For the Purpose of:: To facilitate caregiver knowledge, To improve self management Therapeutic Exercise to Include: Strength training, Endurance training, Body mechanics, Postural training, Flexibilty training, Active ROM, Dynamic Lumbar Stabilization For the Purpose of:: To decrease pain, To increase ROM, To improve muscle performance and motor function, To increase tolerance to activity/condition/ position, To improve ability of physical actions for home/community/work/leisure , To improve gait and locomotor functions Cryotherapy (ice pack, ice massage): Yes Thermo therapy (hot pack): Yes Ultrasound (thermal/non thermal): Yes For the Purpose of:: To decrease pain, To increase ROM, To improve nutrient delivery to tissue Thank you for the opportunity to evaluate your patient. For Medicare and Medicare HMO plans, please review the plan of care and approve it. It will need to be FAXED BACK to us at [phone] for Medicare purposes. Please let me know if there are questions or concerns regarding this plan of care. Physician Signature: Date:
--- NOTE | 2018-06-24 17:46 | HP.PTREVAL_ITS ---
Boris Vance, It has been my pleasure to treat BRENDA TAFOYA over the last 8 visits for LOW BACK PAIN M54.5. Please see the progress note below for an update on the physical therapy plan of care! Subjective: PATIENT REPORTS PT IS HELPING AND SHE WOULD LIKE TO CONTINUE. PATIENT REPORTS NO PAIN RIGHT NOW BUT UP TO 5/10 LEFT LOW BACK/HIP PAIN YESTERDAY DRESSING AFTER GETTIN OUT OF THE SHOWER. Objective/Function: PATIENT IS MAKING SLOW PROGRESS TOWARD ALL PT GOALS. UPON EXAM TODAY: PATIENT DEMONSTRATES SLOW GAIT INTO PT WITHOUT LOB AND WITHOUT ANY ASSISTIVE DEVICES. DECREASED ASHELY STRIDE LENGTH AND TRUNK ROTATION. PATIENT IS ABLE TO EASILY TRANSFER FROM SIT TO STAND WITHOUT UE ASSIST. Motor deficit: ASHELY LE STRENGTH 5/5 WITH MMT'ING EXCEPT HIPS GRADED 4/5. Sensory deficit: ASHELY LE LIGHT TOUCH SENSATION APPEARS TO BE INTACT AND SYMMETRICAL BUT FEET NT. Dural Signs: NEGATIVE ASHELY LE'S. Lumbar mvmt loss: flex - NIL. ext - MOD. R SG - MONICA. L SG - MONICA. PATIENT REPORTS MILD LBP WITH LUMBAR FLEX ROM TESTING. Core strength: POOR. Palpation: NO ACUTE TENDERNESS WITH PALPATION OF THORACIC OR LUMBAR SPINE. NO ACUTE HIP TENDERNESS. OTHER: ASHELY UE ROM IS WFL. ASHELY UE STRENGTH IS GROSSLY 4/5 WITH MMT'ING. PATIENT IS UNABLE TO SLS ON EITHER LEG FOR MORE THAN A FEW SECONDS WITHOUT UE ASSIST. LUMBAR OSWESTRY SCORE HAS IMPROVED FROM 19 TO 11. PATIENT WILL NEED HEP REINFORCEMENT. Plan Plan: *CONTINUE TO ADD TO WRITTEN HEP* CONT PT 2X'S A WEEK FOR POSTURE CORRECTION AND STRENGTHEING. INSTRUCT IN PROPER BODY MECHANICS. DLS WITH A NEUTRAL SPINE IN STANDING. ASHELY LE ROM, STRETCHING AND STRENGTHEING. BALANCE ACTIVITIES. Goals Goal 1:: DECREASE C/O BACK AND LEG SX'S. Goal Time Frame: 4-6 Weeks Goal Progress: Progressing Goal 2:: IMPROVE STANDING, WALKING, SOCIAL LIFE AND HOMEMAKING FUNCTION Goal Time Frame: 4-6 Weeks Goal Progress: Progressing Goal 3:: INSTRUCT IN PROPHYLAXIS Goal Time Frame: 4-6 Weeks Goal Progress: Progressing Anticipated Interventions Patient/Client Instruction: Educate patient on: Condition, Plan of Care, Risk Factors, Benefits of Fitness Program For the Purpose of:: To facilitate caregiver knowledge, To improve self management Therapeutic Exercise to Include: Strength training, Endurance training, Body mechanics, Postural training, Flexibilty training, Active ROM, Dynamic Lumbar Stabilization For the Purpose of:: To decrease pain, To increase ROM, To improve muscle performance and motor function, To increase tolerance to activity/condition/ position, To improve ability of physical actions for home/community/work/leisure , To improve gait and locomotor functions Cryotherapy (ice pack, ice massage): Yes Thermo therapy (hot pack): Yes Ultrasound (thermal/non thermal): Yes For the Purpose of:: To decrease pain, To increase ROM, To improve nutrient delivery to tissue Please do not hesitate to contact me at [phone] by phone or Fax: if you have questions or concerns regarding this new plan of care! Sincerely, Zeynep Phan
--- NOTE | 2018-10-29 13:15 | HP.PTDCNRP_ITS ---
HP - Discharge Summary (1) - Patient Information BRENDA TAFOYA was seen in my office for initial evaluation on 05/20/18. The following Plan of Care was established for this patient: Initial Frequency: 2-3x /Week Initial Duration: 4-6 Weeks - Anticipated Interventions Patient/Client Instruction: Educate patient on: Condition, Plan of Care, Risk Factors, Benefits of Fitness Program For the Purpose of:: To facilitate caregiver knowledge, To improve self management Therapeutic Exercise to Include: Strength training, Endurance training, Body mechanics, Postural training, Flexibilty training, Active ROM, Dynamic Lumbar Stabilization For the Purpose of:: To decrease pain, To increase ROM, To improve muscle performance and motor function, To increase tolerance to a ctivity/condition/position, To improve ability of physical actions for home/community/work/leisure, To improve gait and locomotor functions Cryotherapy (ice pack, ice massage): Yes Thermo therapy (hot pack): Yes Ultrasound (thermal/non thermal): Yes For the Purpose of:: To decrease pain, To increase ROM, To improve nutrient delivery to tissue This patient was last seen in our office 07/21/18. Pertinent comments regarding their Physical therapy will appear below: This patient has not returned to Physical Therapy and is appropriate to return to MD for further follow-up as needed. At this point I will be discontinuing this patient from physical therapy. I wo uld be happy to see this patient again in the future if found appropriate by the physician. Thank you! Zeynep Phan, PT, Cert MDT
== END 2018-07-21 19:00 | disposition home or self-care (01) ==
LOC: PT 18:00
PROVIDERS: Family Provider Family Medicine; PCP Family Medicine; Visit Provider Family Medicine
DX: M54.5 Low back pain (principal); F20.0 Paranoid schizophrenia; Z79.899 Other long term (current) drug therapy
CPT/HCPCS: 36415; 85025; 97110; 97162; 97164; 97530

== ENCOUNTER 2018-07-22 09:24 | Inpatient (IN) | payer MEDICARE, MEDICAID, SELFPAY ==
[2018-07-22] VITALS (18 sets, daily range): BP systolic 120–151; BP diastolic 58–90; PULSE 105–126; RESP 23–34; TEMP 36.6–37; O2SAT 84–98; BMI 37.0
--- NOTE | 2018-07-22 09:58 | EKG12_ITS ---
Test Reason : SOB Blood Pressure : / mmHG Vent. Rate : 128 BPM Atrial Rate : 128 BPM P-R Int : 156 ms QRS Dur : 076 ms QT Int : 290 ms P-R-T Axes : 064 035 053 degrees QTc Int : 423 ms Sinus tachycardia Low voltage QRS Septal infarct , age undetermined Abnormal ECG Confirmed by BOBBI SANDERS, JACOB ([id number]), manuscript editor ELDA SANCHEZ ([id number]) on 07/27/2018 3:51:21 PM Referred By: Lauro Noguera Confirmed By:JACOB MARTINES MD
--- NOTE | 2018-07-22 09:58 | RAD_ITS ---
STUDY: X-RAY CHEST REASON FOR EXAM: Female, 52 years old. Shortness of breath, dyspnea TECHNIQUE: PA and lateral views of the chest. COMPARISON: October 17, 2017 FINDINGS: Cardiac monitoring leads are present. There is a focal area of increased opacity, new when compared to prior study and association with the right upper lobe laterally and inferiorly. This is consistent with that of underlying pulmonary parenchymal infiltrate. There persists linear opacity at the left lung base, likely atelectasis versus scar. There appears mild bronchial wall prominence which may relate to bronchial inflammatory process. There is no demonstrated pleural abnormality. Normal size heart. Normal mediastinum and reshma. Normal visualized pulmonary arteries. Normal visualized aortic arch and descending thoracic aorta. Normal visualized thoracic spine. Normal visualized ribs, clavicles, and shoulders. There is no demonstrated abnormality of the visualized soft tissue structures of the upper abdomen. RAD/Chest PA and Lateral IMPRESSION: There is now a small focal right upper lobe pulmonary parenchymal consolidation, consider infiltrate. Follow-up to clearing recommended. Electronically Signed: Reina Mcrae MD at 10:52 EDT , Service support ,
--- NOTE | 2018-07-22 09:59 | ED.VISSUMM ---
- ER Visit Summary Date of Service: 07/22/18 Chief Complaint: Shortness of breath History of Present Illness: The patient is a 52 F history of COPD, insulin-dependent diabetes and sleep apnea on CPAP. Patient lives in a longterm. She is been short of breath with a nonproductive cough since last night. Denies any fever. No vomiting or diarrhea. No melena. She denies chest pain except with coughing. No history of DVT or PE. No recent travel, surgery, mobilization. No calf pain or swelling. No hemoptysis. Physical Examination: Middle-aged female. Currently getting an aerosol treatment. Vital signs are stable. She is tachycardic at 120. On oxygen her pulse ox is 98% no hypoxia. H EENT exam unremarkable. Moist mucous members. Neck nontender no lymphadenopathy. Lungs prolonged expiratory phase throughout. X-ray wheezing on both sides. No rales. No rhonchi. Heart tachycardic rate about 120. No murmur. Chest wall nontender. Abdomen soft nontender. Normal bowel sounds no peritoneal signs. She is moving all 4 extremities. Calves are nontender without edema or cords. Neurologically she is awake and alert with no focal motor deficits. Test Results: CBC shows a white count of 16,000. Hemoglobin 11.9. Sodium 132. Normal gap normal creatinine. Glucose of 306. Chest x-ray shows chronic changes consistent with COPD. Right upper lobe infiltrate consistent with pneumonia. EKG sinus tachycardia rate of 128 with no signs of NE nor ischemia. Emergency Department Course and Treatment: Vision with acute exacerbation of COPD with wheezing. She will be treated with DuoNeb and albuterol aerosols. IV Solu-Medrol. Treatment Plan: Patient was treated with aerosols, Solu-Medrol, and IV antibiotics. She was started on IV Rocephin and Zithromax for community-acquired pneumonia. On repeat exam she is doing better but still wheezing. She needs to be admitted for further respiratory therapies. I have already spoken to the hospitalist Dr. Lauro Boone for admission Disposition: Admission Impression: Acute dyspnea secondary to exacerbation of COPD Acute right upper lobe community-acquired pneumonia History of insulin-dependent diabetes This note was generated with [employer] software. It may contain incorrect words, spelling, and punctuation that were not noted in review of the chart prior to signing ED Disposition - Plan for ED Patient: Chief Complaint: Shortness of Breath Referrals: Boris Vance MD [Primary Care Provider] -
--- NOTE | 2018-07-22 10:02 | ED.DCSUM_ITS ---
- ER Visit Summary Date of Service: 07/22/18 Chief Complaint: Shortness of breath History of Present Illness: The patient is a 52 F history of COPD, insulin- dependent diabetes and sleep apnea on CPAP. Patient lives in a fci. She is been short of breath with a nonproductive cough since last night. Denies any fever. No vomiting or diarrhea. No melena. She denies chest pain except with coughing. No history of DVT or PE. No recent travel, surgery, mobilization. No calf pain or swelling. No hemoptysis. Physical Examination: Middle-aged female. Currently getting an aerosol treatment. Vital signs are stable. She is tachycardic at 120. On oxygen her pulse ox is 98% no hypoxia. H EENT exam unremarkable. Moist mucous members. Neck nontender no lymphadenopathy. Lungs prolonged expiratory phase throughout. X-ray wheezing on both sides. No rales. No rhonchi. Heart tachycardic rate about 120. No murmur. Chest wall nontender. Abdomen soft nontender. Normal bowel sounds no peritoneal signs. She is moving all 4 extremities. Calves are nontender without edema or cords. Neurologically she is awake and alert with no focal motor deficits. Test Results: CBC shows a white count of 16,000. Hemoglobin 11.9. Sodium 132. Normal gap normal creatinine. Glucose of 306. Chest x-ray shows chronic changes consistent with COPD. Right upper lobe infiltrate consistent with pneumonia. EKG sinus tachycardia rate of 128 with no signs of SC nor ischemia. Emergency Department Course and Treatment: Vision with acute exacerbation of COPD with wheezing. She will be treated with DuoNeb and albuterol aerosols. IV Solu-Medrol. Treatment Plan: Patient was treated with aerosols, Solu-Medrol, and IV antibiotics. She was started on IV Rocephin and Zithromax for community-ac quired pneumonia. On repeat exam she is doing better but still wheezing. She needs to be admitted for further respiratory therapies. I have already spoken to the hospitalist Dr. Lauro Boone for admission Disposition: Admission Impression: Acute dyspnea secondary to exacerbation of COPD Acute right upper lobe community-acquired pneumonia History of insulin-dependent diabetes This note was generated with [employer] software. It may contain incorrect words, spelling, and punctuation that were not noted in review of the chart prior to signing ED Disposition - Plan for ED Patient: Chief Complaint: Shortness of Breath Referrals: Boris Vance MD [Primary Care Provider] -
[2018-07-22] MEDS: Albuterol 2.5 MG/3 ML VIAL.NEB. INHALATION ×2 (10:09)
[2018-07-22] MEDS: Ipratropium/Albuterol Sulfate 3 ML AMPUL.NEB INHALATION ×4 (10:09→23:05)
[2018-07-22 10:30] LABS: Anion Gap 10 (5-15); BUN 8 mg/dL (7-18); BUN/Creat Ratio 10.2 RATIO (10-20); Calcium,Total 8.8 mg/dL (8.5-10.1); Chloride 98 mmol/L (98-107); Creatinine, Serum 0.78 mg/dL (0.55-1.02); EST Glomerular Filtration Rate 81 mL/min (>60); Est Glom Filt Rate - Afr Amer 98 mL/min (>60); Estimated Creatinine Clearance 62.22 ml/min; Glucose 306 mg/dL (74-106); Potassium 3.8 mmol/L (3.5-5.1); Sodium Level 132 mmol/L (136-145)
[2018-07-22 10:37] LABS: Absolute Lymphocyte Count 1.93 X10^3/ul (0.83-4.51); Absolute Neutrophil Count 13.1 X10^3/uL (2.0-7.7); Basophil# 0.03 X10^3/uL; Basophil% 0.2 % (0-1); Hematocrit 36.4 % (37-47); Hemoglobin 11.9 g/dl (12.0-15.0); Lymphocyte # 1.93 X10^3/ul (4.0); Lymphocyte % 11.9 % (19-41); Mean Corp Hgb Conc 32.7 g/gl (32-36); Mean Corpuscular Volume 88.8 fL (81-99); Mean Platelet Vol. 10.3 fl (6.2-12.0); Monocyte# 1.22 X10^3/uL; Monocyte% 7.5 % (0-10); Neutrophil # 13.06 X10^3/uL (2.7-7.7); Neutrophil % 80.2 % (47-70); Platelet Count 199 K/mm3 (150-450); RBC Distribution Width CV 14.3 % (11.6-14.6); RBC Distribution Width SD 45.5 fl (35.1-43.9); White Blood Count 16.3 K/mm3 (4.4-11.0)
[2018-07-22 10:41] LABS: Differential Indicated SCAN CRITERIA MET; POSITIVE COUNT NO; POSITIVE DIFFERENTIAL NO; POSITIVE MORPHOLOGY YES
[2018-07-22] MEDS: 0.9% Normal Saline 1,000 ML 999 ML IV (10:42)
[2018-07-22] MEDS: MethylPREDNISolone 125 MG/2 ML Vial IV (10:42)
[2018-07-22] MEDS: Ceftriaxone 1 GM/50 ML BAG IV (12:22)
--- NOTE | 2018-07-22 12:26 | HP.PCM_ITS ---
Problem List (1) FTT (failure to thrive) in adult Status: Resolved (2) COPD (chronic obstructive pulmonary disease) Status: Chronic (3) Diabetes mellitus type 2 in obese Status: Chronic (4) HTN (hypertension) Status: Chronic (5) Hyperlipidemia Status: Chronic (6) Nonproductive cough Status: Chronic (7) Schizophrenia Status: Chronic (8) Wheezing Status: Acute (9) copd Status: Acute History of Present Illness Date of Admission: 07/22/18 Chief Complaint: Shortness of breath and wheezing The patient is a 52 year old F with past medical history significant for learning disability, schizophrenia, COPD currently resident of the detention who was brought in on account of shortness of breath. Patient symptoms have apparently been ongoing for the past couple of days. Shortness of breath was not related to any activity. She denied any fever no chills. She however did experience wheezing. In view of persistent symptoms patient was brought to the emergency department. Chest x-ray obtained was questionable for right upper lobe pneumonia. An assessment of COPD exacerbation was also made treatment initiated per protocol admitted to regular nursing floor for further management Past Medical History Past Medical History (Chronic Problems): Chronic Problems Nonproductive cough (Chronic) COPD (chronic obstructive pulmonary disease) (Chronic) Hyperlipidemia (Chronic) Diabetes mellitus type 2 in obese (Chronic) HTN (hypertension) (Chronic) Schizophrenia (Chronic) Allergies No Known Allergies Allergy (Verified 07/22/18 09:30) Home Medications: Ambulatory Orders Medication Instructions Recorded Clozapine [Clozaril] 100 mg PO LUNCH 03/28/14 Metformin HCl [Glucophage] 1,000 mg PO BID 03/28/14 Risperidone [Risperdal] 2 mg PO QHS 03/28/14 glipiZIDE [Glucotrol] 5 mg PO BIDAC 03/28/14 Clozapine [Clozaril] 300 mg PO QHS 12/23/14 Insulin Glargine [Lantus SoloStar 20 units SC QHS 12/23/14 Pen] Desvenlafaxine Succinate [Pristiq] 50 mg PO DAILY 07/25/15 Risperidone Microspheres 50 mg IM Q14D 07/25/15 [Risperdal Consta] Tiotropium Diller [Spiriva 18 MCG] 1 puff INHALATION DAILY 07/25/15 Fluticasone Prop 250 mcg [Flovent 1 puff INHALATION BID #1 inhaler 07/29/15 Diskus 250 mcg] Lactulose [Chronulac] 30 ml PO BID 12/18/16 Pravastatin Sodium 20 mg PO QHS 12/18/16 Clozapine [Clozaril] 200 mg PO DINNER 10/11/17 Docusate Sodium [Stool Softener] 100 mg PO BID 10/11/17 Potassium Chloride [K-Dur] 20 meq PO DAILY #30 tab 10/16/17 Albuterol Inhaler [Ventolin Hfa] 1 - 2 puff INHALATION Q4H PRN PRN 10/17/17 Cholecalciferol (Vitamin D3) 1,000 unit PO DAILY 10/17/17 [Vitamin D3] [place]-3 Fatty Acids/Fish Oil [Fish 1 each PO DAILY 10/17/17 Oil 1,000 mg Capsule] Clonazepam [Klonopin] 0.5 mg PO 0700 PRN #2 tab 10/20/17 Clonazepam [Klonopin] 0.5 mg PO 1200 PRN #2 tab 10/20/17 Clonazepam [Klonopin] 1 mg PO QHS PRN #2 tab 10/20/17 Guaifenesin [Mucinex] 1,200 mg PO BID tablet 10/20/17 Prednisone 20 mg PO BID #4 tab 10/20/17 Hydrocodone Bitart/Apap 5-325 1 - 2 tab PO Q4H PRN PRN 3 Days 02/08/18 [[place] 5/325] #12 tab Surgical History: noncontributory Psychiatric History: Anxiety, Depression, Schizophrenia [employer] History: No pertinent [employer] history Smoking Status: Never smoker - *Family History Paternal History Items: - - from a farm accident Maternal History Items: No pertinent history Review of Systems Constitutional: Denies: Anorexia, Chills, Fever, Night Sweats, Weight Change HEENT: Denies: Head Aches, Sinus Congestion, Sinus Drainage Cardiovascular: Denies: Chest Pain, Orthopnea, Palpitations, Paroxysmal Noc. Dyspnea Respiratory: Reports: Cough, Shortness of Breath Gastrointestinal: Denies: Abdominal Pain, Hematemesis, Hematochezia, Nausea, Melena, Vomiting Genitourinary: Denies: Dysuria, Frequency, Hematuria, Urgency Musculoskeletal: Denies: Joint Pain, Joint Tenderness Skin: Denies: Rash Neurological: Denies: Focal weakness, Numbness, Tingling Psychiatric: Denies: Homicidal Ideations, Suicidal Ideations Hematologic/ Lymphatic: Denies: Easy Bruising, Easy Bleeding VTE Information - Inpt Only VTE Present on Admission: No VTE Mechan Device Prophylaxis: Knee High PATRICIA Hose VTE Pharm Prophylaxis ordered?: Yes Objective: GENERAL: cooperative HEENT: Atraumatic; moist oral mucosa EYES; Anicteric, Normal Conjunctiva NECK; supple, normal thyroid, no distended JVD. RESPIRATORY: Diminished to auscultation bilaterally, bilateral wheezes CARDIOVASCULAR: Regular S1 S2, no audible murmurs GI: soft, non-tender, normoactive bowel sounds, : No Renal angle tenderness; EXTREMITIES: No edema, no clubbing, no cyanosis. MUSCULOSKELETAL: No Joint Tenderness; no muscle waisting NEURO: Awake; no lateralizing signs. SKIN: No Rash PSYCH; Normal affect - Physical Exam Vital Signs Temp Pulse Resp BP Pulse Ox 98.4 F 126 H 24 H 135/77 H 98 07/22/18 09:26 07/22/18 10:45 07/22/18 10:45 07/22/18 10:45 07/22/18 09:26 Oxygen Flow Rate (L/min) 3 Oxygen Delivery Method Nasal Cannula Weight: 89 kg Body Mass Index (BMI) 37.0 Laboratory Tests Past 24 Hrs 07/22/18 07/22/18 09:38 09:38 WBC 16.3 H RBC 4.10 L Hgb 11.9 L Hct 36.4 L MCV 88.8 MCH 29.0 MCHC 32.7 RDW 14.3 RDW Differential 45.5 H Plt Count 199 MPV 10.3 Immature Gran % (Auto) 0.200 Neut % (Auto) 80.2 H Lymph % (Auto) 11.9 L [place] % (Auto) 7.5 Eos % (Auto) 0.0 Baso % (Auto) 0.2 Absolute Neuts (auto) 13.1 H Absolute Lymphs (auto) 1.93 Total Counted Not Reportable Sodium 132 L Potassium 3.8 Chloride 98 Carbon Dioxide 24.0 Anion Gap 10 BUN 8 Creatinine 0.78 Estim Creat Clear Calc 62.22 Est GFR (MDRD) Af Amer 98 Est GFR (MDRD) Non-Af 81 BUN/Creatinine Ratio 10.2 Glucose 306 H Calcium 8.8 Assessment/Plan All Active Problems Wheezing (Acute) FTT (failure to thrive) in adult (Resolved) copd (Acute) Patient is a 52-year-old lady presented with progressive shortness of breath with significant wheezing found to have right upper lobe infiltrate consistent with pneumonia admitted to monitored bed for further management 1. Acute respiratory insufficiency secondary to combination of COPD with acute exacerbation as well as community-acquired pneumonia 2. Pneumonia: Suspected to be secondary to streptococci pneumonia. Patient is admitted to regular floor. Blood and sputum cultures sent. Patient placed on Rocephin and Zithromax. He was also placed on oxygen titrated to keep also is greater than 90 3. Acute COPD exacerbation: Possibly preceded by above patient treated with bronchodilator treatment, systemic steroid in addition to antibiotics as well as supplemental oxygen 4. Chronic diastolic congestive heart failure stable 5. Diabetes mellitus type 2 with complications including hyperglycemia; patient is on long-acting insulin Lantus did continue with home dose and subsequently placed on Accu-Cheks before meals and at bedtime with sliding scale coverage 6. Obstructive sleep apnea patient is on CPAP at night 7. Schizophrenia currently stable: Did continue with patient anti-psychotropic medications 8. Dyslipidemia-patient is on statin therapy, continued at home dose 9. Obesity with BMI of 37 10. DVT prophylaxis SC Lovenox Code Visit OBSV E&M: 03632 Initial observation care L3
--- NOTE | 2018-07-22 13:17 | CASEMGMT ---
Pt is here from a skilled nursing, pt's guardian is Jennifer Cisneros([phone]), the document for guardianship is in the echart, JONNY printed and placed on chart. SW called Jennifer, message left. As per the last admission, pt's disability case manager was Leola Harkins([phone]) at [facility], and the skilled nursing's number at that time was [phone]. SW will follow up as needed with the disability case manager and skilled nursing. Also on the last admission pt had a palliative care nurse practitioner at [facility], [place] ([phone]). SW will continue to follow. MATTHEW Meyer, OIL DERRICK OPERATOR
--- NOTE | 2018-07-22 13:53 | CT_ITS ---
STUDY: CT CHEST WITHOUT CONTRAST REASON FOR EXAM: Female, 52 years old. WHEEZING RADIATION DOSAGE (If Supplied By Facility): CTDIvol = ( 19.80 ) mGy, DLP = ( 580.55 ) mGycm TECHNIQUE: Transaxial imaging was performed without the administration of intravenous contrast material. Individualized dose optimization techniques were used for this CT. COMPARISON: None. FINDINGS: There are bilateral peribronchial patchy infiltrates in association with the upper lobes consistent with bilateral bronchial pneumonia. No evidence of a cavitary lesion. No pleural effusion. Normal heart and pericardium. There are multiple small lymph nodes within the mediastinum, which are normal in size and morphology most compatible with reactive lymph hyperplasia. Normal hilar regions. Normal unenhanced pulmonary arteries. Normal aorta arch and descending thoracic aorta. Normal osseous structures. Hepatomegaly with severe hepatic steatosis noted. CT/Chest without Contrast IMPRESSION: Bilateral upper lobe pulmonary parenchymal infiltrates, consider bronchopneumonia. Hepatomegaly with hepatic steatosis. Electronically Signed: Reina Mcrae MD at 15:20 EDT , Service support ,
[2018-07-22] MEDS: Insulin Lispro 100 UNIT/ML INSULN.PEN SQ ×2 (16:26→21:13)
[2018-07-22 16:36] LABS: Bedside Glucose 282 mg/dL (70-110)
[2018-07-22] MEDS: Furosemide 40 MG/4 ML Vial IV (17:04)
[2018-07-22] MEDS: 0.9% NaCl Peripheral Flush Adult/Peds IV ×2 (17:04→21:15)
[2018-07-22] MEDS: clonazePAM 1 MG Tablet PO (21:12)
[2018-07-22] MEDS: Docusate Sodium 100 MG Capsule PO (21:12)
[2018-07-22] MEDS: RisperiDONE 2 MG Tablet PO (21:12)
[2018-07-22] MEDS: Lactulose 20 GM/30 ML UDC PO (21:12)
[2018-07-22] MEDS: guaiFENesin 1,200 MG Tablet 1200 MG PO (21:14)
[2018-07-22] MEDS: Pravastatin 20 MG Tablet PO (21:14)
[2018-07-22 21:31] LABS: Bedside Glucose 351 mg/dL (70-110)
[2018-07-23] VITALS (21 sets, daily range): BP systolic 109–153; BP diastolic 57–96; PULSE 92–120; RESP 19–29; TEMP 36–36.6; O2SAT 89–98
[2018-07-23] MEDS: 0.9% NaCl Peripheral Flush Adult/Peds IV ×2 (05:25→11:30)
[2018-07-23] MEDS: Insulin Lispro 100 UNIT/ML INSULN.PEN SQ ×4 (06:48→21:56)
[2018-07-23] MEDS: Ipratropium/Albuterol Sulfate 3 ML AMPUL.NEB INHALATION ×5 (06:55→23:26)
[2018-07-23 06:56] LABS: Bedside Glucose 275 mg/dL (70-110)
[2018-07-23 07:07] LABS: Absolute Lymphocyte Count 1.77 X10^3/ul (0.83-4.51); Absolute Neutrophil Count 16.7 X10^3/uL (2.0-7.7); Basophil# 0.02 X10^3/uL; Basophil% 0.1 % (0-1); Hemoglobin 12.2 g/dl (12.0-15.0); Lymphocyte # 1.77 X10^3/ul (4.0); Lymphocyte % 9.1 % (19-41); Mean Corp Hgb Conc 32.1 g/gl (32-36); Mean Corpuscular Hgb 28.8 pg (27.0-32.0); Mean Corpuscular Volume 89.6 fL (81-99); Monocyte# 0.86 X10^3/uL; Monocyte% 4.4 % (0-10); Neutrophil # 16.72 X10^3/uL (2.7-7.7); Neutrophil % 85.9 % (47-70); POSITIVE COUNT NO; POSITIVE DIFFERENTIAL NO; POSITIVE MORPHOLOGY YES; Platelet Count 227 K/mm3 (150-450); RBC Distribution Width CV 14.2 % (11.6-14.6); RBC Distribution Width SD 45.9 fl (35.1-43.9); Red Blood Count 4.24 M/mm3 (4.2-5.4); White Blood Count 19.5 K/mm3 (4.4-11.0)
[2018-07-23 07:08] LABS: Differential Indicated SCAN CRITERIA MET
[2018-07-23 07:25] LABS: Anion Gap 9 (5-15); BUN 9 mg/dL (7-18); BUN/Creat Ratio 18.3 RATIO (10-20); Calcium,Total 9.3 mg/dL (8.5-10.1); Chloride 100 mmol/L (98-107); Creatinine, Serum 0.49 mg/dL (0.55-1.02); EST Glomerular Filtration Rate 139 mL/min (>60); Est Glom Filt Rate - Afr Amer 168 mL/min (>60); Estimated Creatinine Clearance 99.04 ml/min; Glucose 277 mg/dL (74-106); Potassium 3.9 mmol/L (3.5-5.1); Sodium Level 138 mmol/L (136-145)
--- NOTE | 2018-07-23 07:46 | CT_ITS ---
STUDY: CT SOFT TISSUE NECK WITH CONTRAST REASON FOR EXAM: Female, 52 years old. Stridor, COPD RADIATION DOSAGE (If Supplied By Facility): CTDIvol = ( 12.42 ) mGy, DLP = ( 511.94 ) mGycm TECHNIQUE: The patient was scanned in a multi-detector CT scanner. High resolution transaxial imaging was performed following intravenous administration of 75 ml of Isovue 370 contrast material. Sagittal and coronal images were reconstructed. Individualized dose optimization techniques were used for this CT. COMPARISON: None. FINDINGS: Normal bilateral parotid glands. Normal bilateral cigarette tester spaces. Normal bilateral parapharyngeal spaces. Normal bilateral carotid spaces. Normal bilateral sublingual and submandibular glands and spaces. Normal visualized nasopharynx. Normal retropharyngeal space. Normal perivertebral space. Normal visualized bilateral faucial tonsils. The visualized tongue, tongue base and oropharynx are normal. The visualized cervical lymph nodes (levels I-) are within normal size limits, and maintain normal morphology. There is no demonstrated solid or cystic mass lesion. There is no abnormal contrast enhancement. Normal epiglottis, bilateral vallecula and hypopharynx. The pre-epiglottic and paraglottic adipose spaces are normal. Normal visualized bilateral piriform sinuses, aryepiglottic folds, vocal cords, and arytenoid-cricoid articulations. Normal subglottic trachea. Normal bilateral lobes of the thyroid gland. Normal visualized pulmonary apices. Minimal opacity is noted in anterior ethmoid air spaces on the right. Otherwise the sinuses are clear. Normal visualized cervical spine. CT/Soft Tissue Neck WITH Contrast IMPRESSION: Normal enhanced CT examination of the soft tissues of the neck. Electronically Signed: Reina Mcrae MD at 10:50 EDT , Service support ,
--- NOTE | 2018-07-23 07:49 | PN_ITS ---
Subjective: Patient seen still remains dyspneic at rest and tachycardic. Did receive Lasix last evening without much improvement. CT of the neck ordered for subsequent evaluation. The patient blood glucose remains uncontrolled added scheduled long-acting insulin for a.m. Objective: GENERAL: cooperative HEENT: Atraumatic; moist oral mucosa EYES; Anicteric, Normal Conjunctiva NECK; supple, normal thyroid, no distended JVD. RESPIRATORY: Diminished to auscultation bilaterally, bilateral wheezes CARDIOVASCULAR: Regular S1 S2, no audible murmurs GI: soft, non-tender, normoactive bowel sounds, : No Renal angle tenderness; EXTREMITIES: No edema, no clubbing, no cyanosis. MUSCULOSKELETAL: No Joint Tenderness; no muscle waisting NEURO: Awake; no lateralizing signs. SKIN: No Rash PSYCH; Normal affect Vitals/I&O's: Vital Signs Temp Pulse Resp BP Pulse Ox 98 F 101 H 25 H 133/96 H 97 07/23/18 05:27 07/23/18 05:27 07/23/18 05:27 07/23/18 05:27 07/23/18 05:27 Oxygen Flow Rate (L/min) 3 Oxygen Delivery Method CPAP Weight: 88.813 kg Body Mass Index (BMI) 37.0 Intake and Output for Last 24 Hours 07/21/18 07/22/18 07/23/18 23:59 23:59 23:59 Intake Total 1000 / 1000 100 / 100 Output Total 900 / 900 Balance 100 / 100 100 / 100 Microbiology Past 72 Hours 07/22/18 15:58 Mucosa - Nose Influenza Types A,B Direct FA (ISHAN) - Final 07/22/18 15:55 Urine, Clean Catch Legionella Antigen - Final 07/22/18 15:55 Urine, Clean Catch Streptococcus pneumoniae Antigen (M - Final Laboratory Results 07/22/18 09:38: WBC 16.3 H, RBC 4.10 L, Hgb 11.9 L, Hct 36.4 L, MCV 88.8, MCH 29.0, MCHC 32.7, RDW 14.3, RDW Differential 45.5 H, Plt Count 199, MPV 10.3, Immature Gran % (Auto) 0.200, Neut % (Auto) 80.2 H, Lymph % (Auto) 11.9 L, [place] % (Auto) 7.5, Eos % (Auto) 0.0, Baso % (Auto) 0.2, Absolute Neuts (auto) 13.1 H, Absolute Lymphs (auto) 1.93, Total Counted Not Reportable 07/22/18 09:38: Sodium 132 L, Potassium 3.8, Chloride 98, Carbon Dioxide 24.0, Anion Gap 10, BUN 8, Creatinine 0.78, Estim Creat Clear Calc 62.22, Est GFR (MDRD) Af Amer 98, Est GFR (MDRD) Non-Af 81, BUN/Creatinine Ratio 10.2, Glucose 306 H, Calcium 8.8 07/22/18 16:25: POC Glucose 282 H 07/22/18 21:06: POC Glucose 351 H 07/23/18 06:30: WBC 19.5 H, RBC 4.24, Hgb 12.2, Hct 38.0, MCV 89.6, MCH 28.8, MCHC 32.1, RDW 14.2, RDW Differential 45.9 H, Plt Count 227, MPV 10.0, Immature Gran % (Auto) 0.500, Neut % (Auto) 85.9 H, Lymph % (Auto) 9.1 L, [place] % (Auto) 4.4, Eos % (Auto) 0.0, Baso % (Auto) 0.1, Absolute Neuts (auto) 16.7 H, Absolute Lymphs (auto) 1.77, Total Counted Not Reportable 07/23/18 06:30: Sodium 138, Potassium 3.9, Chloride 100, Carbon Dioxide 29.0, Anion Gap 9, BUN 9, Creatinine 0.49 L, Estim Creat Clear Calc 99.04, Est GFR (MDRD) Af Amer 168, Est GFR (MDRD) Non-Af 139, BUN/Creatinine Ratio 18.3, Glucose 277 H, Calcium 9.3 07/23/18 06:43: POC Glucose 275 H Current Medications Al Hydroxide/Mg Hydroxide (Mylanta Ii) 30 ml PO Q6H PRN PRN PRN Reason: Gastric burning Albuterol Sulfate (Ventolin Aerosols) 2.5 mg INHALATION Q2H PRN PRN PRN Reason: SHORTNESS OF BREATH Albuterol/Ipratropium (Duoneb) 3 ml INHALATION Q4H.RT JAQUI Last Admin: 07/23/18 06:55 Dose: 3 ml Cholecalciferol (Vitamin D) 1,000 unit PO DAILYCM [facility] Clonazepam (Klonopin) 1 mg PO 1200 JAQUI Clonazepam (Klonopin) 0.5 mg PO BREAKFAST JAQUI Clonazepam (Klonopin) 1 mg PO QHS [facility] Last Admin: 07/22/18 21:12 Dose: 1 mg Clozapine (Clozaril) 100 mg PO LUNCH JAQUI Clozapine (Clozaril) 200 mg PO DINNER [facility] Last Admin: 07/22/18 16:25 Dose: 200 mg Clozapine (Clozaril) 300 mg PO QHS [facility] Last Admin: 07/22/18 21:13 Dose: 300 mg Dextrose (D50w Syringe) 0 gm IV X1 PRN; Protocol PRN Reason: Hypoglycemia Docusate Sodium (Colace) 100 mg PO BID [facility] Last Admin: 07/22/18 21:12 Dose: 100 mg Enoxaparin Sodium (Lovenox) 40 mg SC DAILY@1000 JAQUI Glucagon () 1 mg IM .X1 PRN PRN Reason: Hypoglycemia Guaifenesin (Mucinex) 1,200 mg PO BID [facility] Last Admin: 07/22/18 21:14 Dose: 1,200 mg Ceftriaxone Sodium (Rocephin) 1 gm in 50 mls @ 100 mls/hr IV Q24H [facility] Azithromycin 500 mg/ Dextrose 255 mls @ 250 mls/hr IV Q24 [facility] Stop: 07/25/18 11:02 Insulin Glargine (Lantus (Bkc)) 20 units SC QHS [facility] Last Admin: 07/22/18 21:13 Dose: 20 units Insulin Glargine (Lantus (Bkc)) 20 units SC BREAKFAST [facility] Insulin Human Lispro (Humalog Kwikpen (Bkc)) 0 unit SQ ACHS [facility]; Protocol Last Admin: 07/23/18 06:48 Dose: 6 units Lactulose (Chronulac, Cephulac) 20 gm PO BID [facility] Last Admin: 07/22/18 21:12 Dose: 20 gm Magnesium Hydroxide (Milk Of Magnesia) 30 ml PO DAILY PRN PRN PRN Reason: Constipation Methylprednisolone (Solu-Medrol) 40 mg IV Q8 [facility] Stop: 07/23/18 22:01 Last Admin: 07/23/18 05:25 Dose: 40 mg Oxycodone HCl (Oxyir) 5 mg PO Q4H PRN PRN PRN Reason: Moderate Pain (pain scale 4-5) Potassium Chloride (K-Dur) 20 meq PO DAILY@0800 [facility] Pravastatin Sodium (Pravachol) 20 mg PO QHS [facility] Last Admin: 07/22/18 21:14 Dose: 20 mg Prednisone () 40 mg PO DAILY@0800 [facility] Promethazine HCl (Phenergan) 12.5 mg IM Q6H PRN PRN PRN Reason: NAUSEA/VOMITING Risperidone (Risperdal) 2 mg PO QHS [facility] Last Admin: 07/22/18 21:12 Dose: 2 mg Sodium Chloride () 5 - 30 ml IV UD PRN PRN Reason: SALINE FLUSH Last Admin: 07/23/18 05:25 Dose: 10 ml Venlafaxine HCl (Effexor Xr) 37.5 mg PO DAILY [facility] Medical Necessity - Tobacco Use Smoking Status: Former smoker Assessment/Plan All Active Problems Wheezing (Acute) FTT (failure to thrive) in adult (Resolved) copd (Acute) Patient is a 52-year-old lady presented with progressive shortness of breath with significant wheezing found to have right upper lobe infiltrate consistent with pneumonia admitted to monitored bed for further management 1. Acute respiratory insufficiency secondary to combination of COPD with acute exacerbation as well as community-acquired pneumonia 2. Pneumonia: Suspected to be secondary to streptococci pneumonia. Patient is admitted to regular floor. Blood and sputum cultures sent. Patient placed on Rocephin and Zithromax. He was also placed on oxygen titrated to keep also is greater than 90 3. Acute COPD exacerbation: Possibly preceded by above patient treated with bronchodilator treatment, systemic steroid in addition to antibiotics as well as supplemental oxygen 4. Chronic diastolic congestive heart failure stable 5. Diabetes mellitus type 2 with complications including hyperglycemia; patient is on long-acting insulin Lantus did continue with home dose and subsequently placed on Accu-Cheks before meals and at bedtime with sliding scale coverage 6. Obstructive sleep apnea patient is on CPAP at night 7. Schizophrenia currently stable: Did continue with patient anti-psychotropic medications 8. Dyslipidemia-patient is on statin therapy, continued at home dose 9. Obesity with BMI of 37 10. DVT prophylaxis SC Lovenox Clinical Impression(s) from Imaging Studies Chest X-Ray 07/22/18 09:58 IMPRESSION: There is now a small focal right upper lobe pulmonary parenchymal consolidation, consider infiltrate. Follow-up to clearing recommended. Electronically Signed: Reina Mcrae MD at 10:52 EDT , Service support , Chest CT 07/22/18 13:53 IMPRESSION: Bilateral upper lobe pulmonary parenchymal infiltrates, consider bronchopneumonia. Hepatomegaly with hepatic steatosis. Electronically Signed: Reina Mcrae MD at 15:20 EDT , Service support , Active Medications Al Hydroxide/Mg Hydroxide (Mylanta Ii) 30 ml PO Q6H PRN PRN PRN Reason: Gastric burning Albuterol Sulfate (Ventolin Aerosols) 2.5 mg INHALATION Q2H PRN PRN PRN Reason: SHORTNESS OF BREATH Albuterol/Ipratropium (Duoneb) 3 ml INHALATION Q4H.RT [facility] Last Admin: 07/23/18 06:55 Dose: 3 ml Cholecalciferol (Vitamin D) 1,000 unit PO DAILYCM JAQUI Clonazepam (Klonopin) 1 mg PO 1200 JAQUI Clonazepam (Klonopin) 0.5 mg PO BREAKFAST JAQUI Clonazepam (Klonopin) 1 mg PO QHS [facility] Last Admin: 07/22/18 21:12 Dose: 1 mg Clozapine (Clozaril) 100 mg PO LUNCH JAQUI Clozapine (Clozaril) 200 mg PO DINNER [facility] Last Admin: 07/22/18 16:25 Dose: 200 mg Clozapine (Clozaril) 300 mg PO QHS [facility] Last Admin: 07/22/18 21:13 Dose: 300 mg Dextrose (D50w Syringe) 0 gm IV X1 PRN; Protocol PRN Reason: Hypoglycemia Docusate Sodium (Colace) 100 mg PO BID [facility] Last Admin: 07/22/18 21:12 Dose: 100 mg Enoxaparin Sodium (Lovenox) 40 mg SC DAILY@1000 JAQUI Glucagon () 1 mg IM .X1 PRN PRN Reason: Hypoglycemia Guaifenesin (Mucinex) 1,200 mg PO BID [facility] Last Admin: 07/22/18 21:14 Dose: 1,200 mg Ceftriaxone Sodium (Rocephin) 1 gm in 50 mls @ 100 mls/hr IV Q24H [facility] Azithromycin 500 mg/ Dextrose 255 mls @ 250 mls/hr IV Q24 [facility] Stop: 07/25/18 11:02 Insulin Glargine (Lantus (Bkc)) 20 units SC QHS [facility] Last Admin: 07/22/18 21:13 Dose: 20 units Insulin Glargine (Lantus (Bkc)) 20 units SC BREAKFAST [facility] Insulin Human Lispro (Humalog Kwikpen ([facility])) 0 unit SQ ACHS [facility]; Protocol Last Admin: 07/23/18 06:48 Dose: 6 units Lactulose (Chronulac, Cephulac) 20 gm PO BID [facility] Last Admin: 07/22/18 21:12 Dose: 20 gm Magnesium Hydroxide (Milk Of Magnesia) 30 ml PO DAILY PRN PRN PRN Reason: Constipation Methylprednisolone (Solu-Medrol) 40 mg IV Q8 [facility] Stop: 07/23/18 22:01 Last Admin: 07/23/18 05:25 Dose: 40 mg Oxycodone HCl (Oxyir) 5 mg PO Q4H PRN PRN PRN Reason: Moderate Pain (pain scale 4-5) Potassium Chloride (K-Dur) 20 meq PO DAILY@0800 [facility] Pravastatin Sodium (Pravachol) 20 mg PO QHS [facility] Last Admin: 07/22/18 21:14 Dose: 20 mg Prednisone () 40 mg PO DAILY@0800 [facility] Promethazine HCl (Phenergan) 12.5 mg IM Q6H PRN PRN PRN Reason: NAUSEA/VOMITING Risperidone (Risperdal) 2 mg PO QHS [facility] Last Admin: 07/22/18 21:12 Dose: 2 mg Sodium Chloride () 5 - 30 ml IV UD PRN PRN Reason: SALINE FLUSH Last Admin: 07/23/18 05:25 Dose: 10 ml Venlafaxine HCl (Effexor Xr) 37.5 mg PO DAILY [facility] Code Visit OBSV E&M: 32401 Subsequent observation care L3
[2018-07-23] MEDS: Venlafaxine XR 37.5 MG Capsule PO (08:30)
[2018-07-23] MEDS: Lactulose 20 GM/30 ML UDC PO ×2 (08:30→21:55)
[2018-07-23] MEDS: Enoxaparin 40 MG/0.4 ML Syringe SC (08:30)
[2018-07-23] MEDS: Docusate Sodium 100 MG Capsule PO ×2 (08:33→21:55)
[2018-07-23] MEDS: clonazePAM 0.5 MG Tablet PO (08:33)
[2018-07-23] MEDS: guaiFENesin 1,200 MG Tablet 1200 MG PO ×2 (08:33→21:55)
--- NOTE | 2018-07-23 08:53 | CASEMGMT ---
Addendum entered by Rosa Chowdhury 07/23/18 11:27: SW received fax from [facility] of the pt's current guardianship papers stating Melony Willard is now pt's guardian. SW called Melony, however the voicemail was full and SW was not able to leave a message. SW also received a call from pt's medicare coordinator at [facility], [place], who states that she spoke w/the therapist at [facility] who felt pt was progressing w/therapy. Also, she states Dr. Vance did an assessment of pt and pt was positive for symptoms of vertigo. MATTHEW Meyer, STATION ATTENDANT Original Note: Addendum entered by Rosa Chowdhury 07/23/18 09:25: Also as per pt's case aide Leola, pt is lethargic at home and does not do exercises on her own at home. MATTHEW Meyer, STATION ATTENDANT Original Note: JONNY called pt's case aide at [facility], Leola Jaime. Leola states prior to admission, pt was using a [facility] from [facility]. Pt does not use any other DME, and as per Leola, pt needs to be independent to stay at this [facility]. Leola states she sees pt almost daily at the [facility]. Pt is getting outpt PT at [facility], this was ordered by Dr. Vance. Pt is also now getting vestibular therapy as pt reported she is dizzy. As per Leola however, pt shows no symptoms of vertigo. Leola states pt has to navigate a curvy staircase at the [facility]ci and has had no issues with this. Leola states that the pt may be viewing PT as socialization. Leola states pt is risking her ability to stay in the [facility]ci due to these behaviors. JONNY inquired about pt's guardian, Leola states that pt's guardian is aware pt is here. The guardian now is Melony Willard, . Leola will fax over the new guardianship papers. We discussed placement if needed. Leola states [place] would be fine or any place that can do PT/OT if it is needed, just not [facility]. SW explained will make sure PT/OT is ordered and will see if this is needed. SW will call the guardian once this SW receives the new guardianship papers. SW will continue to follow. MATTHEW Meyer, KAI
[2018-07-23] MEDS: Ceftriaxone 1 GM/50 ML BAG IV (09:40)
[2018-07-23] MEDS: clonazePAM 1 MG Tablet PO ×2 (11:26→21:55)
[2018-07-23 11:36] LABS: Bedside Glucose 363 mg/dL (70-110)
--- NOTE | 2018-07-23 15:49 | CASEMGMT ---
PT/OT are still pending. JONNY called pt's guardian again, Melony Willard([phone]), spoke w/her about the discharge plan. JONNY explained that SW did call w/Leola Jaime, pt's case repairer, and we had talked about the possibility of pt needing a SNF at discharge. Melony states she had not thought about it, is not sure at this moment where she would want pt to go if SNF is needed. The preference would be for pt to return home if possible. SW reviewed the list of SNF's that take pt's insurance, her choices if needed would be 1. [facility], 2. [facility], or 3. [facility]. JONNY explained will continue to follow and once pt participates in PT/OT, we will have a better idea of if [place] can [place] [facility] or if SNF is needed. Melony states understanding. SW will continue to follow. MATTHEW Meyer, KIDS ACTIVITIES COACH
[2018-07-23] MEDS: Furosemide 40 MG Tablet PO (16:34)
[2018-07-23] MEDS: Benzonatate 100 MG Capsule PO ×2 (16:34→21:55)
[2018-07-23] MEDS: Insulin Lispro 100 UNIT/ML INSULN.PEN 10 UNIT SC (16:36)
[2018-07-23 16:50] LABS: Bedside Glucose 278 mg/dL (70-110)
[2018-07-23] MEDS: Albuterol 2.5 MG/3 ML VIAL.NEB. INHALATION (21:10)
[2018-07-23] MEDS: RisperiDONE 2 MG Tablet PO (21:55)
[2018-07-23] MEDS: Pravastatin 20 MG Tablet PO (21:55)
[2018-07-23 22:10] LABS: Bedside Glucose 327 mg/dL (70-110)
[2018-07-24] VITALS (24 sets, daily range): BP systolic 104–151; BP diastolic 57–99; PULSE 95–117; RESP 12–28; TEMP 36.4–37; O2SAT 93–99
[2018-07-24] MEDS: Ipratropium/Albuterol Sulfate 3 ML AMPUL.NEB INHALATION ×6 (02:48→23:30)
--- NOTE | 2018-07-24 07:33 | PN_ITS ---
Subjective: Patient seen, still has significant wheezing. Respiratory panel came back positive for rhinovirus Objective: GENERAL: cooperative HEENT: Atraumatic; moist oral mucosa EYES; Anicteric, Normal Conjunctiva NECK; supple, normal thyroid, no distended JVD. RESPIRATORY: Diminished to auscultation bilaterally, bilateral wheezes CARDIOVASCULAR: Regular S1 S2, no audible murmurs GI: soft, non-tender, normoactive bowel sounds, : No Renal angle tenderness; EXTREMITIES: No edema, no clubbing, no cyanosis. MUSCULOSKELETAL: No Joint Tenderness; no muscle waisting NEURO: Awake; no lateralizing signs. SKIN: No Rash PSYCH; Normal affect Vitals/I&O's: Vital Signs Temp Pulse Resp BP Pulse Ox 97.5 F L 100 26 H 122/62 H 96 07/24/18 04:00 07/24/18 06:10 07/24/18 06:10 07/24/18 04:00 07/24/18 06:10 Oxygen Flow Rate (L/min) 3 Oxygen Delivery Method Bi-pap Weight: 88.81 kg Body Mass Index (BMI) 37.0 Intake and Output for Last 24 Hours 07/22/18 07/23/18 07/24/18 23:59 23:59 23:59 Intake Total 1000 / 1000 1067 / 1067 300 / 300 Output Total 900 / 900 1000 / 1000 700 / 700 Balance 100 / 100 67 / 67 -400 / -400 Microbiology Past 72 Hours 07/23/18 11:08 Mucosa - Nasopharyngeal Respiratory Panel (PCR) - Final Rhinovirus 07/22/18 15:58 Mucosa - Nose Influenza Types A,B Direct FA (ISHAN) - Final 07/22/18 15:55 Urine, Clean Catch Legionella Antigen - Final 07/22/18 15:55 Urine, Clean Catch Streptococcus pneumoniae Antigen (M - Final Laboratory Results 07/23/18 11:27: POC Glucose 363 H 07/23/18 16:35: POC Glucose 278 H 07/23/18 21:54: POC Glucose 327 H Current Medications Al Hydroxide/Mg Hydroxide (Mylanta Ii) 30 ml PO Q6H PRN PRN PRN Reason: Gastric burning Albuterol Sulfate (Ventolin Aerosols) 2.5 mg INHALATION Q2H PRN PRN PRN Reason: SHORTNESS OF BREATH Last Admin: 07/23/18 21:10 Dose: 2.5 mg Albuterol/Ipratropium (Duoneb) 3 ml INHALATION Q4H.RT [facility] Last Admin: 07/24/18 06:36 Dose: 3 ml Benzonatate (Tessalon Perle) 100 mg PO Q4H PRN PRN PRN Reason: COUGH Last Admin: 07/23/18 21:55 Dose: 100 mg Cholecalciferol (Vitamin D) 1,000 unit PO DAILYCM [facility] Last Admin: 07/23/18 08:29 Dose: 1,000 unit Clonazepam (Klonopin) 1 mg PO 1200 [facility] Last Admin: 07/23/18 11:26 Dose: 1 mg Clonazepam (Klonopin) 0.5 mg PO BREAKFAST [facility] Last Admin: 07/23/18 08:33 Dose: 0.5 mg Clonazepam (Klonopin) 1 mg PO QHS [facility] Last Admin: 07/23/18 21:55 Dose: 1 mg Clozapine (Clozaril) 100 mg PO LUNCH [facility] Last Admin: 07/23/18 11:26 Dose: 100 mg Clozapine (Clozaril) 200 mg PO DINNER [facility] Last Admin: 07/23/18 16:34 Dose: 200 mg Clozapine (Clozaril) 300 mg PO QHS [facility] Last Admin: 07/23/18 21:55 Dose: 300 mg Dextrose (D50w Syringe) 0 gm IV X1 PRN; Protocol PRN Reason: Hypoglycemia Docusate Sodium (Colace) 100 mg PO BID [facility] Last Admin: 07/23/18 21:55 Dose: 100 mg Enoxaparin Sodium (Lovenox) 40 mg SC DAILY@1000 [facility] Last Admin: 07/23/18 08:30 Dose: 40 mg Furosemide (Lasix) 40 mg PO BID@1000,1800 [facility] Last Admin: 07/23/18 16:34 Dose: 40 mg Glucagon () 1 mg IM .X1 PRN PRN Reason: Hypoglycemia Guaifenesin (Mucinex) 1,200 mg PO BID [facility] Last Admin: 07/23/18 21:55 Dose: 1,200 mg Ceftriaxone Sodium (Rocephin) 1 gm in 50 mls @ 100 mls/hr IV Q24H [facility] Last Admin: 07/23/18 09:40 Dose: 100 mls/hr Azithromycin 500 mg/ Dextrose 255 mls @ 250 mls/hr IV Q24 [facility] Stop: 07/25/18 11:02 Last Admin: 07/23/18 10:26 Dose: 250 mls/hr Insulin Glargine (Lantus (Bkc)) 30 units SC BREAKFAST JAQUI Insulin Glargine (Lantus (Bkc)) 30 units SC QHS [facility] Last Admin: 07/23/18 21:56 Dose: 30 u Insulin Human Lispro (Humalog Kwikpen (Bkc)) 0 unit SQ ACHS [facility]; Protocol Last Admin: 07/23/18 21:56 Dose: 8 units Insulin Human Lispro (Humalog Kwikpen (Bkc)) 10 unit SC TIDAC [facility] Last Admin: 07/23/18 16:36 Dose: 10 units Lactulose (Chronulac, Cephulac) 20 gm PO BID [facility] Last Admin: 07/23/18 21:55 Dose: 20 gm Magnesium Hydroxide (Milk Of Magnesia) 30 ml PO DAILY PRN PRN PRN Reason: Constipation Oxycodone HCl (Oxyir) 5 mg PO Q4H PRN PRN PRN Reason: Moderate Pain (pain scale 4-5) Potassium Chloride (K-Dur) 20 meq PO DAILY@0800 [facility] Last Admin: 07/23/18 08:29 Dose: 20 meq Pravastatin Sodium (Pravachol) 20 mg PO QHS [facility] Last Admin: 07/23/18 21:55 Dose: 20 mg Prednisone () 40 mg PO DAILY@0800 [facility] Promethazine HCl (Phenergan) 12.5 mg IM Q6H PRN PRN PRN Reason: NAUSEA/VOMITING Risperidone (Risperdal) 2 mg PO QHS [facility] Last Admin: 07/23/18 21:55 Dose: 2 mg Sodium Chloride () 5 - 30 ml IV UD PRN PRN Reason: SALINE FLUSH Last Admin: 07/23/18 11:30 Dose: 10 ml Venlafaxine HCl (Effexor Xr) 37.5 mg PO DAILY [facility] Last Admin: 07/23/18 08:30 Dose: 37.5 mg Medical Necessity - Tobacco Use Smoking Status: Former smoker Assessment/Plan All Active Problems Wheezing (Acute) FTT (failure to thrive) in adult (Resolved) copd (Acute) Patient is a 52-year-old lady presented with progressive shortness of breath with significant wheezing found to have right upper lobe infiltrate consistent with pneumonia admitted to monitored bed for further management 1. Acute respiratory insufficiency secondary to combination of COPD with acute exacerbation as well as community-acquired pneumonia 2. Pneumonia: Suspected to be secondary to streptococci pneumonia. Patient is admitted to regular floor. Blood and sputum cultures sent. Patient placed on Rocephin and Zithromax. He was also placed on oxygen titrated to keep also is greater than 90 3. Acute COPD exacerbation: Possibly preceded by above patient treated with bronchodilator treatment, systemic steroid in addition to antibiotics as well as supplemental oxygen 4. Chronic diastolic congestive heart failure stable 5. Diabetes mellitus type 2 with complications including hyperglycemia; patient is on long-acting insulin Lantus did continue with home dose and subsequently placed on Accu-Cheks before meals and at bedtime with sliding scale coverage 6. Obstructive sleep apnea patient is on CPAP at night 7. Schizophrenia currently stable: Did continue with patient anti-psychotropic medications 8. Dyslipidemia-patient is on statin therapy, continued at home dose 9. Obesity with BMI of 37 10. DVT prophylaxis SC Lovenox Clinical Impression(s) from Imaging Studies Chest X-Ray 07/22/18 09:58 IMPRESSION: There is now a small focal right upper lobe pulmonary parenchymal consolidation, consider infiltrate. Follow-up to clearing recommended. Electronically Signed: Reina Mcrae MD at 10:52 EDT , Service support , Chest CT 07/22/18 13:53 IMPRESSION: Bilateral upper lobe pulmonary parenchymal infiltrates, consider bronchopneumonia. Hepatomegaly with hepatic steatosis. Electronically Signed: Reina Mcrae MD at 15:20 EDT , Service support , Active Medications Al Hydroxide/Mg Hydroxide (Mylanta Ii) 30 ml PO Q6H PRN PRN PRN Reason: Gastric burning Albuterol Sulfate (Ventolin Aerosols) 2.5 mg INHALATION Q2H PRN PRN PRN Reason: SHORTNESS OF BREATH Albuterol/Ipratropium (Duoneb) 3 ml INHALATION Q4H.RT [facility] Last Admin: 07/23/18 06:55 Dose: 3 ml Cholecalciferol (Vitamin D) 1,000 unit PO DAILYCM [facility] Clonazepam (Klonopin) 1 mg PO 1200 [facility] Clonazepam (Klonopin) 0.5 mg PO BREAKFAST JAQUI Clonazepam (Klonopin) 1 mg PO QHS [facility] Last Admin: 07/22/18 21:12 Dose: 1 mg Clozapine (Clozaril) 100 mg PO LUNCH [facility] Clozapine (Clozaril) 200 mg PO DINNER [facility] Last Admin: 07/22/18 16:25 Dose: 200 mg Clozapine (Clozaril) 300 mg PO QHS [facility] Last Admin: 07/22/18 21:13 Dose: 300 mg Dextrose (D50w Syringe) 0 gm IV X1 PRN; Protocol PRN Reason: Hypoglycemia Docusate Sodium (Colace) 100 mg PO BID [facility] Last Admin: 07/22/18 21:12 Dose: 100 mg Enoxaparin Sodium (Lovenox) 40 mg SC DAILY@1000 [facility] Glucagon () 1 mg IM .X1 PRN PRN Reason: Hypoglycemia Guaifenesin (Mucinex) 1,200 mg PO BID [facility] Last Admin: 07/22/18 21:14 Dose: 1,200 mg Ceftriaxone Sodium (Rocephin) 1 gm in 50 mls @ 100 mls/hr IV Q24H [facility] Azithromycin 500 mg/ Dextrose 255 mls @ 250 mls/hr IV Q24 [facility] Stop: 07/25/18 11:02 Insulin Glargine (Lantus (Bkc)) 20 units SC QHS [facility] Last Admin: 07/22/18 21:13 Dose: 20 units Insulin Glargine (Lantus (Bkc)) 20 units SC BREAKFAST [facility] Insulin Human Lispro (Humalog Kwikpen (Bkc)) 0 unit SQ ACHS [facility]; Protocol Last Admin: 07/23/18 06:48 Dose: 6 units Lactulose (Chronulac, Cephulac) 20 gm PO BID [facility] Last Admin: 07/22/18 21:12 Dose: 20 gm Magnesium Hydroxide (Milk Of Magnesia) 30 ml PO DAILY PRN PRN PRN Reason: Constipation Methylprednisolone (Solu-Medrol) 40 mg IV Q8 [facility] Stop: 07/23/18 22:01 Last Admin: 07/23/18 05:25 Dose: 40 mg Oxycodone HCl (Oxyir) 5 mg PO Q4H PRN PRN PRN Reason: Moderate Pain (pain scale 4-5) Potassium Chloride (K-Dur) 20 meq PO DAILY@0800 [facility] Pravastatin Sodium (Pravachol) 20 mg PO QHS [facility] Last Admin: 07/22/18 21:14 Dose: 20 mg Prednisone () 40 mg PO DAILY@0800 [facility] Promethazine HCl (Phenergan) 12.5 mg IM Q6H PRN PRN PRN Reason: NAUSEA/VOMITING Risperidone (Risperdal) 2 mg PO QHS [facility] Last Admin: 07/22/18 21:12 Dose: 2 mg Sodium Chloride () 5 - 30 ml IV UD PRN PRN Reason: SALINE FLUSH Last Admin: 07/23/18 05:25 Dose: 10 ml Venlafaxine HCl (Effexor Xr) 37.5 mg PO DAILY [facility] Code Visit Inpatient E&M: 91370 Subs Hosp L2
[2018-07-24 07:45] LABS: Hematocrit 36.7 % (37-47); Hemoglobin 11.6 g/dl (12.0-15.0); Mean Corp Hgb Conc 31.6 g/gl (32-36); Mean Corpuscular Hgb 28.5 pg (27.0-32.0); Mean Corpuscular Volume 90.2 fL (81-99); Mean Platelet Vol. 9.5 fl (6.2-12.0); Platelet Count 221 K/mm3 (150-450); RBC Distribution Width CV 14.2 % (11.6-14.6); RBC Distribution Width SD 46.8 fl (35.1-43.9); Red Blood Count 4.07 M/mm3 (4.2-5.4); Scan Indicated on CBC? Y/N NO; White Blood Count 16.4 K/mm3 (4.4-11.0)
[2018-07-24 08:03] LABS: Anion Gap 6 (5-15); BUN 13 mg/dL (7-18); Chloride 98 mmol/L (98-107); Creatinine, Serum 0.65 mg/dL (0.55-1.02); EST Glomerular Filtration Rate 101 mL/min (>60); Est Glom Filt Rate - Afr Amer 122 mL/min (>60); Estimated Creatinine Clearance 74.66 ml/min; Glucose 269 mg/dL (74-106); Magnesium 2.2 mg/dL (1.6-2.6); Potassium 4.2 mmol/L (3.5-5.1); Sodium Level 137 mmol/L (136-145)
[2018-07-24] MEDS: Ceftriaxone 1 GM/50 ML BAG IV (09:00)
[2018-07-24] MEDS: Venlafaxine XR 37.5 MG Capsule PO (09:13)
[2018-07-24] MEDS: Furosemide 40 MG Tablet PO ×2 (09:13→17:28)
[2018-07-24] MEDS: clonazePAM 0.5 MG Tablet PO (09:13)
[2018-07-24] MEDS: predniSONE 20 MG Tablet 40 MG PO (09:13)
[2018-07-24] MEDS: Docusate Sodium 100 MG Capsule PO ×2 (09:13→21:55)
[2018-07-24] MEDS: Benzonatate 100 MG Capsule PO ×2 (09:19→13:57)
[2018-07-24] MEDS: guaiFENesin 1,200 MG Tablet 1200 MG PO ×2 (09:19→21:55)
[2018-07-24] MEDS: Lactulose 20 GM/30 ML UDC PO ×2 (09:20→21:54)
[2018-07-24] MEDS: Enoxaparin 40 MG/0.4 ML Syringe SC (09:20)
[2018-07-24 09:46] LABS: Bedside Glucose 216 mg/dL (70-110)
[2018-07-24] MEDS: Insulin Lispro 100 UNIT/ML INSULN.PEN 10 UNIT SC ×3 (10:31→17:28)
[2018-07-24] MEDS: Insulin Lispro 100 UNIT/ML INSULN.PEN SQ ×3 (10:32→17:28)
--- NOTE | 2018-07-24 10:36 | NURSING ---
PT ATE BREAKFAST LATE THIS AM- INSULIN GIVEN AT THIS TIME DUE TO PT SLEEPING IN.
[2018-07-24] MEDS: clonazePAM 1 MG Tablet PO ×2 (12:16→21:54)
[2018-07-24 12:25] LABS: Bedside Glucose 294 mg/dL (70-110)
--- NOTE | 2018-07-24 12:34 | NURSING ---
pt aware of order for sputum sample and sterile cup at bedside. Instruction/ education given- pt verbalized understanding.
--- NOTE | 2018-07-24 12:46 | CASEMGMT ---
Social Work Pt seen by PT/OT and pt is able to return to previous level of care at residential. Pt had been receiving outpt PT and this will continue. Met with pt and she is agreeable to return to residential. Phone call and VM left to both thom Willard and lead case manager Leola and informed that current plan is for pt to return home at time of d/c with continuation of outpt therapy. KAILEE Jones
--- NOTE | 2018-07-24 15:37 | NURSING ---
longterm called in at this time and notified this RN that if pt is d[facility]c'ed to [facility], any prescriptions will need to go through [facility] and states that [facility] is closed on the weekends. She also states that if patient is to be discharged back to [facility], they only assist with medications administration but do not provide hands on care. State that patient will need to use stairs to get meals, and do her activities of daily living independently.
[2018-07-24 17:41] LABS: Bedside Glucose 193 mg/dL (70-110)
[2018-07-24] MEDS: RisperiDONE 2 MG Tablet PO (21:55)
[2018-07-24] MEDS: Pravastatin 20 MG Tablet PO (21:55)
[2018-07-24 22:10] LABS: Bedside Glucose 124 mg/dL (70-110)
--- NOTE | 2018-07-24 23:30 | NURSING ---
pt refusing to use bipap at this time. Placed back on 3L NC
[2018-07-25] VITALS (13 sets, daily range): BP systolic 106–135; BP diastolic 57–87; PULSE 95–116; RESP 20–26; TEMP 36.4–36.9; O2SAT 91–97
[2018-07-25] MEDS: Ipratropium/Albuterol Sulfate 3 ML AMPUL.NEB INHALATION ×4 (02:10→15:15)
[2018-07-25 06:32] LABS: Hematocrit 41.1 % (37-47); Hemoglobin 12.9 g/dl (12.0-15.0); Mean Corp Hgb Conc 31.4 g/gl (32-36); Mean Corpuscular Hgb 28.6 pg (27.0-32.0); Mean Corpuscular Volume 91.1 fL (81-99); Mean Platelet Vol. 9.6 fl (6.2-12.0); Platelet Count 276 K/mm3 (150-450); RBC Distribution Width CV 14.2 % (11.6-14.6); RBC Distribution Width SD 47.1 fl (35.1-43.9); Red Blood Count 4.51 M/mm3 (4.2-5.4); White Blood Count 15.7 K/mm3 (4.4-11.0)
[2018-07-25 06:35] LABS: Scan Indicated on CBC? Y/N NO
[2018-07-25 06:49] LABS: Anion Gap 9 (5-15); BUN 11 mg/dL (7-18); Calcium,Total 9.3 mg/dL (8.5-10.1); Chloride 94 mmol/L (98-107); Creatinine, Serum 0.58 mg/dL (0.55-1.02); EST Glomerular Filtration Rate 115 mL/min (>60); Est Glom Filt Rate - Afr Amer 139 mL/min (>60); Estimated Creatinine Clearance 83.67 ml/min; Glucose 121 mg/dL (74-106); Potassium 3.7 mmol/L (3.5-5.1); Sodium Level 138 mmol/L (136-145)
[2018-07-25] MEDS: Sodium Chloride 0.65% 1 SPRAY SPRAY.BTL NASAL ×2 (08:17→19:49)
[2018-07-25] MEDS: clonazePAM 0.5 MG Tablet PO (08:19)
[2018-07-25] MEDS: predniSONE 20 MG Tablet 40 MG PO (08:20)
--- NOTE | 2018-07-25 08:21 | PCM.DC ---
You will use the following diet at home:: Calorie/Carbohydrate Controlled (specify 1200, 1400, etc) - 1800 Your food should be the consistency of: Regular Discharge Activity: Return to Normal Activity Allergies/Adverse Reactions: Allergies No Known Allergies Allergy (Verified 07/22/18 09:30) Medications to take at Discharge Clozapine [Clozaril] 100 mg PO LUNCH 03/28/14 Metformin HCl [Glucophage] 1,000 mg PO BID 03/28/14 Risperidone [Risperdal] 2 mg PO QHS 03/28/14 glipiZIDE [Glucotrol] 5 mg PO BIDAC 03/28/14 Clozapine [Clozaril] 300 mg PO QHS 12/23/14 Insulin Glargine [Lantus SoloStar Pen] 24 units SC QHS 12/23/14 Desvenlafaxine Succinate [Pristiq] 50 mg PO DAILY 07/25/15 Risperidone Microspheres [Risperdal Consta] 50 mg IM Q14D 07/25/15 Tiotropium [place] [Spiriva 18 MCG] 1 puff INHALATION DAILY 07/25/15 Pravastatin Sodium 20 mg PO QHS 12/18/16 Clozapine [Clozaril] 200 mg PO DINNER 10/11/17 Potassium Chloride [K-Dur] 20 meq PO DAILY #30 tab 10/16/17 Cholecalciferol (Vitamin D3) [Vitamin D3] 1,000 unit PO DAILY 10/17/17 [place]-3 Fatty Acids/Fish Oil [Fish Oil 1,000 mg Capsule] 1 each PO DAILY 10/17/17 Albuterol IH (ProAir) [Proair Hfa] 2 puff INHALATION PRN PRN 07/22/18 Aspirin [Aspirin EC] 325 mg PO DAILY 07/22/18 Clonazepam [Klonopin] 0.5 mg PO BREAKFAST 07/22/18 Clonazepam [Klonopin] 1 mg PO 1200 07/22/18 Clonazepam [Klonopin] 1 mg PO QHS 07/22/18 Ferrous Gluconate 325 mg PO BIDCM 07/22/18 Fluticasone/Vilanterol [Breo Ellipta 100-25 Mcg INH] 1 each IH DAILY 07/22/18 Fluticasone/Vilanterol [Breo Ellipta 100-25 Mcg INH] 1 inhaler 07/22/18 Furosemide [Lasix] 20 mg PO DAILY 07/22/18 Lubiprostone [Amitiza] 24 mcg PO BID 07/22/18 Olopatadine HCl [Patanol] 1 drop EACH EYE DAILY 07/22/18 Benzonatate [Tessalon Perle] 100 mg PO Q4H PRN PRN #20 cap 07/25/18 Prednisone 10 mg PO UD #30 tab 07/25/18 The following prescriptions were given: Benzonatate [Tessalon Perle] 100 mg PO Q4H PRN PRN #20 cap PRN Reason: COUGH Prednisone 10 mg PO UD #30 tab Primary Care Physician: Boris Vance MD [Primary Care Provider] - Please follow up with your Primary Care Physician in: in 5-7 days Test Results: Test results from this visit will be discussed in further detail at your follow-up appointment, if applicable. Proposed Discharge Date: 07/25/18
--- NOTE | 2018-07-25 08:23 | PCM.DC.SUM ---
Discharge Date and Diagnosis Date of Admission: 07/22/18 Date of Discharge: 07/25/18 - Primary Discharge Diagnosis Community acquired pneumonia COPD exacerbation - Secondary Discharge Diagnosis Chronic Problems Nonproductive cough (Chronic) COPD (chronic obstructive pulmonary disease) (Chronic) Hyperlipidemia (Chronic) Diabetes mellitus type 2 in obese (Chronic) HTN (hypertension) (Chronic) Schizophrenia (Chronic) Hospital Course and Treatment Imaging Results: Clinical Impression(s) from Imaging Studies Chest X-Ray 07/22/18 09:58 IMPRESSION: There is now a small focal right upper lobe pulmonary parenchymal consolidation, consider infiltrate. Follow-up to clearing recommended. Electronically Signed: Reina Mcrae MD at 10:52 EDT , Service support , Chest CT 07/22/18 13:53 IMPRESSION: Bilateral upper lobe pulmonary parenchymal infiltrates, consider bronchopneumonia. Hepatomegaly with hepatic steatosis. Electronically Signed: Reina Mcrae MD at 15:20 EDT , Service support , Soft Tissue Neck CT 07/23/18 07:46 IMPRESSION: Normal enhanced CT examination of the soft tissues of the neck. Electronically Signed: Reina Mcrae MD at 10:50 EDT , Service support , Operations: None Summary of Care Provided: Patient is a 52-year-old lady presented with progressive shortness of breath with significant wheezing found to have right upper lobe infiltrate consistent with pneumonia admitted to monitored bed for further management 1. Acute respiratory insufficiency secondary to combination of COPD with acute exacerbation as well as community-acquired pneumonia 2. Pneumonia: Suspected to be secondary to streptococci pneumonia. Patient is admitted to regular floor. Blood and sputum cultures sent. Patient placed on Rocephin and Zithromax. He was also placed on oxygen titrated to keep also is greater than 90. Patient was discharged on Levaquin 750 mg p.o. daily for 5 days 3. Acute COPD exacerbation: Possibly precipitated by above patient treated with bronchodilator treatment, systemic steroid in addition to antibiotics as well as supplemental oxygen 4. Acute on chronic diastolic congestive heart failure stable patient was treated with Lasix during her hospital stay 5. Diabetes mellitus type 2 with complications including hyperglycemia; patient is on long-acting insulin Lantus did continue with home dose and subsequently placed on Accu-Cheks before meals and at bedtime with sliding scale coverage 6. Obstructive sleep apnea patient is on CPAP at night 7. Schizophrenia currently stable: Did continue with patient anti-psychotropic medications 8. Dyslipidemia-patient is on statin therapy, continued at home dose 9. Obesity with BMI of 37 10. DVT prophylaxis SC Lovenox - Physical Exam General: Well developed HEENT: Atraumatic Neck: Supple Lungs: Diminished Neurological: Neuro grossly intact Psych/Mental Status: Normal Affect Vital Signs Temp Pulse Resp BP Pulse Ox 98.4 F 106 H 26 H 106/57 L 94 07/25/18 06:14 07/25/18 07:49 07/25/18 06:50 07/25/18 06:14 07/25/18 06:50 Oxygen Flow Rate (L/min) 3 Oxygen Delivery Method Nasal Cannula Weight: 88.81 kg Body Mass Index (BMI) 37.0 Intake and Output for Last 24 Hours 07/23/18 07/24/18 07/25/18 23:59 23:59 23:59 Intake Total 1067 / 1067 1600 / 1600 450 / 450 Output Total 1000 / 1000 2500 / 2500 1500 / 1500 Balance 67 / 67 -900 / -900 -1050 / -1050 Microbiology Past 72 Hours 07/22/18 14:10 Blood Culture - Preliminary Blood Culture (Wb) - Anticubital Right No growth in 48 hours. 07/23/18 11:08 Respiratory Panel (PCR) - Final Mucosa - Nasopharyngeal Rhinovirus 07/22/18 15:58 Influenza Types A,B Direct FA (ISHAN) - Final Mucosa - Nose 07/22/18 15:55 Legionella Antigen - Final Urine, Clean Catch 07/22/18 15:55 Streptococcus pneumoniae Antigen (M - Final Urine, Clean Catch Laboratory Tests Past 24 Hrs 07/25/18 07/25/18 05:42 05:42 WBC 15.7 H RBC 4.51 Hgb 12.9 Hct 41.1 MCV 91.1 MCH 28.6 MCHC 31.4 L RDW 14.2 RDW Differential 47.1 H Plt Count 276 MPV 9.6 Sodium 138 Potassium 3.7 Chloride 94 L Carbon Dioxide 35.0 H Anion Gap 9 BUN 11 Creatinine 0.58 Estim Creat Clear Calc 83.67 Est GFR (MDRD) Af Amer 139 Est GFR (MDRD) Non-Af 115 BUN/Creatinine Ratio 19.0 Glucose 121 H Calcium 9.3 Magnesium 2.0 POC Glucose 07/24/18 07/24/18 07/24/18 21:54 17:21 12:10 POC Glucose 124 H 193 H 294 H 07/24/18 08:54 POC Glucose 216 H Discharge Diet: 1800 Calorie Control Diet Discharge Activity: Return to Normal Activity Home Medications: Medications to take at Discharge Clozapine [Clozaril] 100 mg PO LUNCH 03/28/14 Metformin HCl [Glucophage] 1,000 mg PO BID 03/28/14 Risperidone [Risperdal] 2 mg PO QHS 03/28/14 glipiZIDE [Glucotrol] 5 mg PO BIDAC 03/28/14 Clozapine [Clozaril] 300 mg PO QHS 12/23/14 Insulin Glargine [Lantus SoloStar Pen] 24 units SC QHS 12/23/14 Desvenlafaxine Succinate [Pristiq] 50 mg PO DAILY 07/25/15 Risperidone Microspheres [Risperdal Consta] 50 mg IM Q14D 07/25/15 Tiotropium [place] [Spiriva 18 MCG] 1 puff INHALATION DAILY 07/25/15 Pravastatin Sodium 20 mg PO QHS 12/18/16 Clozapine [Clozaril] 200 mg PO DINNER 10/11/17 Potassium Chloride [K-Dur] 20 meq PO DAILY #30 tab 10/16/17 Cholecalciferol (Vitamin D3) [Vitamin D3] 1,000 unit PO DAILY 10/17/17 [place]-3 Fatty Acids/Fish Oil [Fish Oil 1,000 mg Capsule] 1 each PO DAILY 10/17/17 Albuterol IH (ProAir) [Proair Hfa] 2 puff INHALATION PRN PRN 07/22/18 Aspirin [Aspirin EC] 325 mg PO DAILY 07/22/18 Clonazepam [Klonopin] 0.5 mg PO BREAKFAST 07/22/18 Clonazepam [Klonopin] 1 mg PO 1200 07/22/18 Clonazepam [Klonopin] 1 mg PO QHS 07/22/18 Ferrous Gluconate 325 mg PO BIDCM 07/22/18 Fluticasone/Vilanterol [Breo Ellipta 100-25 Mcg INH] 1 each IH DAILY 07/22/18 Fluticasone/Vilanterol [Breo Ellipta 100-25 Mcg INH] 1 inhaler 07/22/18 Furosemide [Lasix] 20 mg PO DAILY 07/22/18 Lubiprostone [Amitiza] 24 mcg PO BID 07/22/18 Olopatadine HCl [Patanol] 1 drop EACH EYE DAILY 07/22/18 Benzonatate [Tessalon Perle] 100 mg PO Q4H PRN PRN #20 cap 07/25/18 Prednisone 10 mg PO UD #30 tab 07/25/18 levoFLOXacin tablet [Levaquin tablet] 750 mg PO DAILY #5 tab 07/25/18 Following Prescrptions Were Given to Patient: Benzonatate [Tessalon Perle] 100 mg PO Q4H PRN PRN #20 cap PRN Reason: COUGH levoFLOXacin tablet [Levaquin tablet] 750 mg PO DAILY #5 tab Prednisone 10 mg PO UD #30 tab Primary Care Physician: Boris Vance MD [Primary Care Provider] - Please follow up with your Primary Care Physician in: in 5-7 days Disposition: Home Minutes spent on discharge:: 35 Patient Condition:: Stable Medical Necessity - Tobacco Use Smoking Status: Former smoker Meaningful Use Info Meaningful Use Diagnoses (Choose all that apply): None applicable Code Visit Inpatient E&M: 55485 Disch Hosp
[2018-07-25] MEDS: Insulin Lispro 100 UNIT/ML INSULN.PEN SQ ×4 (08:24→21:25)
[2018-07-25] MEDS: Insulin Lispro 100 UNIT/ML INSULN.PEN 10 UNIT SC ×3 (08:25→17:47)
[2018-07-25 08:46] LABS: Bedside Glucose 161 mg/dL (70-110)
[2018-07-25] MEDS: Enoxaparin 40 MG/0.4 ML Syringe SC (10:37)
[2018-07-25] MEDS: Lactulose 20 GM/30 ML UDC PO ×2 (10:37→21:24)
[2018-07-25] MEDS: Venlafaxine XR 37.5 MG Capsule PO (10:38)
[2018-07-25] MEDS: Docusate Sodium 100 MG Capsule PO ×2 (10:38→21:24)
[2018-07-25] MEDS: Furosemide 40 MG Tablet PO ×2 (10:38→17:50)
[2018-07-25] MEDS: guaiFENesin 1,200 MG Tablet 1200 MG PO ×2 (10:39→21:23)
--- NOTE | 2018-07-25 11:52 | CASEMGMT ---
Social Work Note Call from pt's guardian, Melony, with concerns of the [facility] returning to the [facility] as she is on oxygen. Inform that SW will contact the [facility] to verify that this is not an option. Melony states if not that JONNY Lee, earlier in the week had provided alternative placement option and they would be willing to go to a facility from [facility]. Placed call to the [facility] and spoke with staff who states that they are not STNAs or nurses and cannot provide any medical care. Inform that we send people home without staff to aid them with oxygen all the time. States they cannot accept her back on oxygen. Called Melony who confirms that their first choice would be 1. [facility], 2. [facility], and 3. [facility]. Pt has been to [facility] in the past. Left message on [facility] line. SW on Friday to f/u. Will need pre-cert or LOC. Plan: SNF pending acceptance and approval. Zaira Olson, IUSS MASTER ANALYST, TRANSMISSION BUILDER
[2018-07-25 13:10] LABS: Bedside Glucose 393 mg/dL (70-110)
--- NOTE | 2018-07-25 13:13 | PCM.PN.HOSP ---
Subjective: Plan was for patient to have been discharged back to her assisted this morning however with patient requiring continuous oxygen decision to discharge her back to a assisted discontinued. environmental services specialist consulted patient will be discharged to a senior living facility pending insurance approval Objective: GENERAL: cooperative HEENT: Atraumatic; moist oral mucosa EYES; Anicteric, Normal Conjunctiva NECK; supple, normal thyroid, no distended JVD. RESPIRATORY: Diminished to auscultation bilaterally, bilateral wheezes CARDIOVASCULAR: Regular S1 S2, no audible murmurs GI: soft, non-tender, normoactive bowel sounds, : No Renal angle tenderness; EXTREMITIES: No edema, no clubbing, no cyanosis. MUSCULOSKELETAL: No Joint Tenderness; no muscle waisting NEURO: Awake; no lateralizing signs. SKIN: No Rash PSYCH; Normal affect Vitals/I&O's: Vital Signs Temp Pulse Resp BP Pulse Ox 97.9 F 112 H 26 H 135/87 H 91 07/25/18 08:27 07/25/18 11:12 07/25/18 11:12 07/25/18 08:27 07/25/18 08:27 Oxygen Flow Rate (L/min) 3 Oxygen Delivery Method Nasal Cannula Weight: 88.81 kg Body Mass Index (BMI) 37.0 Intake and Output for Last 24 Hours 07/23/18 07/24/18 07/25/18 23:59 23:59 23:59 Intake Total 1067 / 1067 1600 / 1600 450 / 450 Output Total 1000 / 1000 2500 / 2500 1500 / 1500 Balance 67 / 67 -900 / -900 -1050 / -1050 Microbiology Past 72 Hours 07/22/18 14:10 Blood Culture (Wb) - Anticubital Right Blood Culture - Preliminary No growth in 48 hours. 07/23/18 11:08 Mucosa - Nasopharyngeal Respiratory Panel (PCR) - Final Rhinovirus 07/22/18 15:58 Mucosa - Nose Influenza Types A,B Direct FA (ISHAN) - Final 07/22/18 15:55 Urine, Clean Catch Legionella Antigen - Final 07/22/18 15:55 Urine, Clean Catch Streptococcus pneumoniae Antigen (M - Final Laboratory Results 07/24/18 17:21: POC Glucose 193 H 07/24/18 21:54: POC Glucose 124 H 07/25/18 05:42: WBC 15.7 H, RBC 4.51, Hgb 12.9, Hct 41.1, MCV 91.1, MCH 28.6, MCHC 31.4 L, RDW 14.2, RDW Differential 47.1 H, Plt Count 276, MPV 9.6 07/25/18 05:42: Sodium 138, Potassium 3.7, Chloride 94 L, Carbon Dioxide 35.0 H, Anion Gap 9, BUN 11, Creatinine 0.58, Estim Creat Clear Calc 83.67, Est GFR (MDRD) Af Amer 139, Est GFR (MDRD) Non-Af 115, BUN/Creatinine Ratio 19.0, Glucose 121 H, Calcium 9.3, Magnesium 2.0 07/25/18 08:22: POC Glucose 161 H 07/25/18 13:00: POC Glucose 393 H Current Medications Al Hydroxide/Mg Hydroxide (Mylanta Ii) 30 ml PO Q6H PRN PRN PRN Reason: Gastric burning Albuterol Sulfate (Ventolin Aerosols) 2.5 mg INHALATION Q2H PRN PRN PRN Reason: SHORTNESS OF BREATH Last Admin: 07/23/18 21:10 Dose: 2.5 mg Albuterol/Ipratropium (Duoneb) 3 ml INHALATION Q4H.RT [facility] Last Admin: 07/25/18 11:12 Dose: 3 ml Benzonatate (Tessalon Perle) 100 mg PO Q4H PRN PRN PRN Reason: COUGH Last Admin: 07/24/18 13:57 Dose: 100 mg Cholecalciferol (Vitamin D) 1,000 unit PO DAILYCM [facility] Last Admin: 07/25/18 08:19 Dose: 1,000 unit Clonazepam (Klonopin) 1 mg PO 1200 [facility] Last Admin: 07/24/18 12:16 Dose: 1 mg Clonazepam (Klonopin) 0.5 mg PO BREAKFAST [facility] Last Admin: 07/25/18 08:19 Dose: 0.5 mg Clonazepam (Klonopin) 1 mg PO QHS [facility] Last Admin: 07/24/18 21:54 Dose: 1 mg Clozapine (Clozaril) 100 mg PO LUNCH [facility] Last Admin: 07/24/18 12:16 Dose: 100 mg Clozapine (Clozaril) 200 mg PO DINNER [facility] Last Admin: 07/24/18 17:28 Dose: 200 mg Clozapine (Clozaril) 300 mg PO QHS [facility] Last Admin: 07/24/18 21:55 Dose: 300 mg Dextrose (D50w Syringe) 0 gm IV X1 PRN; Protocol PRN Reason: Hypoglycemia Docusate Sodium (Colace) 100 mg PO BID [facility] Last Admin: 07/25/18 10:38 Dose: 100 mg Enoxaparin Sodium (Lovenox) 40 mg SC DAILY@1000 [facility] Last Admin: 07/25/18 10:37 Dose: 40 mg Furosemide (Lasix) 40 mg PO BID@1000,1800 [facility] Last Admin: 07/25/18 10:38 Dose: 40 mg Glucagon () 1 mg IM .X1 PRN PRN Reason: Hypoglycemia Guaifenesin (Mucinex) 1,200 mg PO BID [facility] Last Admin: 07/25/18 10:39 Dose: 1,200 mg Ceftriaxone Sodium (Rocephin) 1 gm in 50 mls @ 100 mls/hr IV Q24H [facility] Last Admin: 07/24/18 09:00 Dose: 100 mls/hr Insulin Glargine (Lantus (Bkc)) 30 units SC BREAKFAST [facility] Last Admin: 07/25/18 08:20 Dose: 30 units Insulin Glargine (Lantus (Bkc)) 30 units SC QHS [facility] Last Admin: 07/24/18 21:56 Dose: 30 u Insulin Human Lispro (Humalog Kwikpen (Bkc)) 0 unit SQ ACHS [facility]; Protocol Last Admin: 07/25/18 08:24 Dose: 2 units Insulin Human Lispro (Humalog Kwikpen (Bkc)) 10 unit SC TIDAC [facility] Last Admin: 07/25/18 08:25 Dose: 10 units Lactulose (Chronulac, Cephulac) 20 gm PO BID [facility] Last Admin: 07/25/18 10:37 Dose: 20 gm Magnesium Hydroxide (Milk Of Magnesia) 30 ml PO DAILY PRN PRN PRN Reason: Constipation Oxycodone HCl (Oxyir) 5 mg PO Q4H PRN PRN PRN Reason: Moderate Pain (pain scale 4-5) Potassium Chloride (K-Dur) 20 meq PO DAILY@0800 [facility] Last Admin: 07/25/18 08:19 Dose: 20 meq Pravastatin Sodium (Pravachol) 20 mg PO QHS [facility] Last Admin: 07/24/18 21:55 Dose: 20 mg Prednisone () 40 mg PO DAILY@0800 [facility] Last Admin: 07/25/18 08:20 Dose: 40 mg Promethazine HCl (Phenergan) 12.5 mg IM Q6H PRN PRN PRN Reason: NAUSEA/VOMITING Risperidone (Risperdal) 2 mg PO QHS [facility] Last Admin: 07/24/18 21:55 Dose: 2 mg Sodium Chloride () 5 - 30 ml IV UD PRN PRN Reason: SALINE FLUSH Last Admin: 07/23/18 11:30 Dose: 10 ml Sodium Chloride ([place] Nasal [place]) 1 spray NASAL TID PRN PRN PRN Reason: NASAL DRYNESS Last Admin: 07/25/18 08:17 Dose: 1 spray Venlafaxine HCl (Effexor Xr) 37.5 mg PO DAILY [facility] Last Admin: 07/25/18 10:38 Dose: 37.5 mg Medical Necessity - Tobacco Use Smoking Status: Former smoker Assessment/Plan All Active Problems Wheezing (Acute) FTT (failure to thrive) in adult (Resolved) copd (Acute) Patient is a 52-year-old lady presented with progressive shortness of breath with significant wheezing found to have right upper lobe infiltrate consistent with pneumonia admitted to monitored bed for further management 1. Acute respiratory insufficiency secondary to combination of COPD with acute exacerbation as well as community-acquired pneumonia 2. Pneumonia: Suspected to be secondary to streptococci pneumonia. Patient is admitted to regular floor. Blood and sputum cultures sent. Patient placed on Rocephin and Zithromax. Patient was also placed on oxygen titrated to keep also is greater than 90 plan was for patient to have been discharged back to her assisted however with patient requiring oxygen decision was made to cancel patient's discharge to home and instead arrangement made for patient to be transferred to a senior living facility 3. Acute COPD exacerbation: Possibly preceded by above patient treated with bronchodilator treatment, systemic steroid in addition to antibiotics as well as supplemental oxygen 4. Chronic diastolic congestive heart failure stable 5. Diabetes mellitus type 2 with complications including hyperglycemia; patient is on long-acting insulin Lantus did continue with home dose and subsequently placed on Accu-Cheks before meals and at bedtime with sliding scale coverage 6. Obstructive sleep apnea patient is on CPAP at night 7. Schizophrenia currently stable: Did continue with patient anti-psychotropic medications 8. Dyslipidemia-patient is on statin therapy, continued at home dose 9. Obesity with BMI of 37 10. DVT prophylaxis SC Lovenox Active Medications Al Hydroxide/Mg Hydroxide (Mylanta Ii) 30 ml PO Q6H PRN PRN PRN Reason: Gastric burning Albuterol Sulfate (Ventolin Aerosols) 2.5 mg INHALATION Q2H PRN PRN PRN Reason: SHORTNESS OF BREATH Last Admin: 07/23/18 21:10 Dose: 2.5 mg Albuterol/Ipratropium (Duoneb) 3 ml INHALATION Q4H.RT [facility] Last Admin: 07/25/18 11:12 Dose: 3 ml Benzonatate (Tessalon Perle) 100 mg PO Q4H PRN PRN PRN Reason: COUGH Last Admin: 07/24/18 13:57 Dose: 100 mg Cholecalciferol (Vitamin D) 1,000 unit PO DAILYCM [facility] Last Admin: 07/25/18 08:19 Dose: 1,000 unit Clonazepam (Klonopin) 1 mg PO 1200 [facility] Last Admin: 07/24/18 12:16 Dose: 1 mg Clonazepam (Klonopin) 0.5 mg PO BREAKFAST [facility] Last Admin: 07/25/18 08:19 Dose: 0.5 mg Clonazepam (Klonopin) 1 mg PO QHS [facility] Last Admin: 07/24/18 21:54 Dose: 1 mg Clozapine (Clozaril) 100 mg PO LUNCH [facility] Last Admin: 07/24/18 12:16 Dose: 100 mg Clozapine (Clozaril) 200 mg PO DINNER [facility] Last Admin: 07/24/18 17:28 Dose: 200 mg Clozapine (Clozaril) 300 mg PO QHS [facility] Last Admin: 07/24/18 21:55 Dose: 300 mg Dextrose (D50w Syringe) 0 gm IV X1 PRN; Protocol PRN Reason: Hypoglycemia Docusate Sodium (Colace) 100 mg PO BID [facility] Last Admin: 07/25/18 10:38 Dose: 100 mg Enoxaparin Sodium (Lovenox) 40 mg SC DAILY@1000 [facility] Last Admin: 07/25/18 10:37 Dose: 40 mg Furosemide (Lasix) 40 mg PO BID@1000,1800 [facility] Last Admin: 07/25/18 10:38 Dose: 40 mg Glucagon () 1 mg IM .X1 PRN PRN Reason: Hypoglycemia Guaifenesin (Mucinex) 1,200 mg PO BID [facility] Last Admin: 07/25/18 10:39 Dose: 1,200 mg Ceftriaxone Sodium (Rocephin) 1 gm in 50 mls @ 100 mls/hr IV Q24H [facility] Last Admin: 07/24/18 09:00 Dose: 100 mls/hr Insulin Glargine (Lantus (Bkc)) 30 units SC BREAKFAST [facility] Last Admin: 07/25/18 08:20 Dose: 30 units Insulin Glargine (Lantus (Bkc)) 30 units SC QHS [facility] Last Admin: 07/24/18 21:56 Dose: 30 u Insulin Human Lispro (Humalog Kwikpen (Bkc)) 0 unit SQ ACHS [facility]; Protocol Last Admin: 07/25/18 08:24 Dose: 2 units Insulin Human Lispro (Humalog Kwikpen (Bkc)) 10 unit SC TIDAC [facility] Last Admin: 07/25/18 08:25 Dose: 10 units Lactulose (Chronulac, Cephulac) 20 gm PO BID [facility] Last Admin: 07/25/18 10:37 Dose: 20 gm Magnesium Hydroxide (Milk Of Magnesia) 30 ml PO DAILY PRN PRN PRN Reason: Constipation Oxycodone HCl (Oxyir) 5 mg PO Q4H PRN PRN PRN Reason: Moderate Pain (pain scale 4-5) Potassium Chloride (K-Dur) 20 meq PO DAILY@0800 [facility] Last Admin: 07/25/18 08:19 Dose: 20 meq Pravastatin Sodium (Pravachol) 20 mg PO QHS [facility] Last Admin: 07/24/18 21:55 Dose: 20 mg Prednisone () 40 mg PO DAILY@0800 [facility] Last Admin: 07/25/18 08:20 Dose: 40 mg Promethazine HCl (Phenergan) 12.5 mg IM Q6H PRN PRN PRN Reason: NAUSEA/VOMITING Risperidone (Risperdal) 2 mg PO QHS [facility] Last Admin: 07/24/18 21:55 Dose: 2 mg Sodium Chloride () 5 - 30 ml IV UD PRN PRN Reason: SALINE FLUSH Last Admin: 07/23/18 11:30 Dose: 10 ml Sodium Chloride ([place]win Nasal [place]) 1 spray NASAL TID PRN PRN PRN Reason: NASAL DRYNESS Last Admin: 07/25/18 08:17 Dose: 1 spray Venlafaxine HCl (Effexor Xr) 37.5 mg PO DAILY [facility] Last Admin: 07/25/18 10:38 Dose: 37.5 mg Code Visit Inpatient E&M: 30714 Subs Hosp L2
[2018-07-25] MEDS: clonazePAM 1 MG Tablet PO ×2 (13:17→21:24)
[2018-07-25] MEDS: Benzonatate 100 MG Capsule PO ×2 (13:17→19:47)
--- NOTE | 2018-07-25 13:17 | PN_ITS ---
Subjective: Plan was for patient to have been discharged back to her senior care this morning however with patient requiring continuous oxygen decision to discharge her back to a senior care discontinued. information services tech consulted patient will be discharged to a jail facility pending insurance approval Objective: GENERAL: cooperative HEENT: Atraumatic; moist oral mucosa EYES; Anicteric, Normal Conjunctiva NECK; supple, normal thyroid, no distended JVD. RESPIRATORY: Diminished to auscultation bilaterally, bilateral wheezes CARDIOVASCULAR: Regular S1 S2, no audible murmurs GI: soft, non-tender, normoactive bowel sounds, : No Renal angle tenderness; EXTREMITIES: No edema, no clubbing, no cyanosis. MUSCULOSKELETAL: No Joint Tenderness; no muscle waisting NEURO: Awake; no lateralizing signs. SKIN: No Rash PSYCH; Normal affect Vitals/I&O's: Vital Signs Temp Pulse Resp BP Pulse Ox 97.9 F 112 H 26 H 135/87 H 91 07/25/18 08:27 07/25/18 11:12 07/25/18 11:12 07/25/18 08:27 07/25/18 08:27 Oxygen Flow Rate (L/min) 3 Oxygen Delivery Method Nasal Cannula Weight: 88.81 kg Body Mass Index (BMI) 37.0 Intake and Output for Last 24 Hours 07/23/18 07/24/18 07/25/18 23:59 23:59 23:59 Intake Total 1067 / 1067 1600 / 1600 450 / 450 Output Total 1000 / 1000 2500 / 2500 1500 / 1500 Balance 67 / 67 -900 / -900 -1050 / -1050 Microbiology Past 72 Hours 07/22/18 14:10 Blood Culture (Wb) - Anticubital Right Blood Culture - Preliminary No growth in 48 hours. 07/23/18 11:08 Mucosa - Nasopharyngeal Respiratory Panel (PCR) - Final Rhinovirus 07/22/18 15:58 Mucosa - Nose Influenza Types A,B Direct FA (ISHAN) - Final 07/22/18 15:55 Urine, Clean Catch Legionella Antigen - Final 07/22/18 15:55 Urine, Clean Catch Streptococcus pneumoniae Antigen (M - Final Laboratory Results 07/24/18 17:21: POC Glucose 193 H 07/24/18 21:54: POC Glucose 124 H 07/25/18 05:42: WBC 15.7 H, RBC 4.51, Hgb 12.9, Hct 41.1, MCV 91.1, MCH 28.6, MCHC 31.4 L, RDW 14.2, RDW Differential 47.1 H, Plt Count 276, MPV 9.6 07/25/18 05:42: Sodium 138, Potassium 3.7, Chloride 94 L, Carbon Dioxide 35.0 H, Anion Gap 9, BUN 11, Creatinine 0.58, Estim Creat Clear Calc 83.67, Est GFR (MDRD) Af Amer 139, Est GFR (MDRD) Non-Af 115, BUN/Creatinine Ratio 19.0, Glucose 121 H, Calcium 9.3, Magnesium 2.0 07/25/18 08:22: POC Glucose 161 H 07/25/18 13:00: POC Glucose 393 H Current Medications Al Hydroxide/Mg Hydroxide (Mylanta Ii) 30 ml PO Q6H PRN PRN PRN Reason: Gastric burning Albuterol Sulfate (Ventolin Aerosols) 2.5 mg INHALATION Q2H PRN PRN PRN Reason: SHORTNESS OF BREATH Last Admin: 07/23/18 21:10 Dose: 2.5 mg Albuterol/Ipratropium (Duoneb) 3 ml INHALATION Q4H.RT [facility] Last Admin: 07/25/18 11:12 Dose: 3 ml Benzonatate (Tessalon Perle) 100 mg PO Q4H PRN PRN PRN Reason: COUGH Last Admin: 07/24/18 13:57 Dose: 100 mg Cholecalciferol (Vitamin D) 1,000 unit PO DAILYCM [facility] Last Admin: 07/25/18 08:19 Dose: 1,000 unit Clonazepam (Klonopin) 1 mg PO 1200 [facility] Last Admin: 07/24/18 12:16 Dose: 1 mg Clonazepam (Klonopin) 0.5 mg PO BREAKFAST [facility] Last Admin: 07/25/18 08:19 Dose: 0.5 mg Clonazepam (Klonopin) 1 mg PO QHS [facility] Last Admin: 07/24/18 21:54 Dose: 1 mg Clozapine (Clozaril) 100 mg PO LUNCH [facility] Last Admin: 07/24/18 12:16 Dose: 100 mg Clozapine (Clozaril) 200 mg PO DINNER [facility] Last Admin: 07/24/18 17:28 Dose: 200 mg Clozapine (Clozaril) 300 mg PO QHS [facility] Last Admin: 07/24/18 21:55 Dose: 300 mg Dextrose (D50w Syringe) 0 gm IV X1 PRN; Protocol PRN Reason: Hypoglycemia Docusate Sodium (Colace) 100 mg PO BID [facility] Last Admin: 07/25/18 10:38 Dose: 100 mg Enoxaparin Sodium (Lovenox) 40 mg SC DAILY@1000 [facility] Last Admin: 07/25/18 10:37 Dose: 40 mg Furosemide (Lasix) 40 mg PO BID@1000,1800 [facility] Last Admin: 07/25/18 10:38 Dose: 40 mg Glucagon () 1 mg IM .X1 PRN PRN Reason: Hypoglycemia Guaifenesin (Mucinex) 1,200 mg PO BID [facility] Last Admin: 07/25/18 10:39 Dose: 1,200 mg Ceftriaxone Sodium (Rocephin) 1 gm in 50 mls @ 100 mls/hr IV Q24H [facility] Last Admin: 07/24/18 09:00 Dose: 100 mls/hr Insulin Glargine (Lantus (Bkc)) 30 units SC BREAKFAST [facility] Last Admin: 07/25/18 08:20 Dose: 30 units Insulin Glargine (Lantus (Bkc)) 30 units SC QHS [facility] Last Admin: 07/24/18 21:56 Dose: 30 u Insulin Human Lispro (Humalog Kwikpen (Bkc)) 0 unit SQ ACHS [facility]; Protocol Last Admin: 07/25/18 08:24 Dose: 2 units Insulin Human Lispro (Humalog Kwikpen (Bkc)) 10 unit SC TIDAC [facility] Last Admin: 07/25/18 08:25 Dose: 10 units Lactulose (Chronulac, Cephulac) 20 gm PO BID [facility] Last Admin: 07/25/18 10:37 Dose: 20 gm Magnesium Hydroxide (Milk Of Magnesia) 30 ml PO DAILY PRN PRN PRN Reason: Constipation Oxycodone HCl (Oxyir) 5 mg PO Q4H PRN PRN PRN Reason: Moderate Pain (pain scale 4-5) Potassium Chloride (K-Dur) 20 meq PO DAILY@0800 [facility] Last Admin: 07/25/18 08:19 Dose: 20 meq Pravastatin Sodium (Pravachol) 20 mg PO QHS [facility] Last Admin: 07/24/18 21:55 Dose: 20 mg Prednisone () 40 mg PO DAILY@0800 [facility] Last Admin: 07/25/18 08:20 Dose: 40 mg Promethazine HCl (Phenergan) 12.5 mg IM Q6H PRN PRN PRN Reason: NAUSEA/VOMITING Risperidone (Risperdal) 2 mg PO QHS [facility] Last Admin: 07/24/18 21:55 Dose: 2 mg Sodium Chloride () 5 - 30 ml IV UD PRN PRN Reason: SALINE FLUSH Last Admin: 07/23/18 11:30 Dose: 10 ml Sodium Chloride ([place] Nasal [place]) 1 spray NASAL TID PRN PRN PRN Reason: NASAL DRYNESS Last Admin: 07/25/18 08:17 Dose: 1 spray Venlafaxine HCl (Effexor Xr) 37.5 mg PO DAILY [facility] Last Admin: 07/25/18 10:38 Dose: 37.5 mg Medical Necessity - Tobacco Use Smoking Status: Former smoker Assessment/Plan All Active Problems Wheezing (Acute) FTT (failure to thrive) in adult (Resolved) copd (Acute) Patient is a 52-year-old lady presented with progressive shortness of breath with significant wheezing found to have right upper lobe infiltrate consistent with pneumonia admitted to monitored bed for further management 1. Acute respiratory insufficiency secondary to combination of COPD with acute exacerbation as well as community-acquired pneumonia 2. Pneumonia: Suspected to be secondary to streptococci pneumonia. Patient is admitted to regular floor. Blood and sputum cultures sent. Patient placed on Rocephin and Zithromax. Patient was also placed on oxygen titrated to keep also is greater than 90 plan was for patient to have been discharged back to her senior care however with patient requiring oxygen decision was made to cancel patient's discharge to home and instead arrangement made for patient to be transferred to a jail facility 3. Acute COPD exacerbation: Possibly preceded by above patient treated with bronchodilator treatment, systemic steroid in addition to antibiotics as well as supplemental oxygen 4. Chronic diastolic congestive heart failure stable 5. Diabetes mellitus type 2 with complications including hyperglycemia; patient is on long-acting insulin Lantus did continue with home dose and subsequently placed on Accu-Cheks before meals and at bedtime with sliding scale coverage 6. Obstructive sleep apnea patient is on CPAP at night 7. Schizophrenia currently stable: Did continue with patient anti-psychotropic medications 8. Dyslipidemia-patient is on statin therapy, continued at home dose 9. Obesity with BMI of 37 10. DVT prophylaxis SC Lovenox Active Medications Al Hydroxide/Mg Hydroxide (Mylanta Ii) 30 ml PO Q6H PRN PRN PRN Reason: Gastric burning Albuterol Sulfate (Ventolin Aerosols) 2.5 mg INHALATION Q2H PRN PRN PRN Reason: SHORTNESS OF BREATH Last Admin: 07/23/18 21:10 Dose: 2.5 mg Albuterol/Ipratropium (Duoneb) 3 ml INHALATION Q4H.RT [facility] Last Admin: 07/25/18 11:12 Dose: 3 ml Benzonatate (Tessalon Perle) 100 mg PO Q4H PRN PRN PRN Reason: COUGH Last Admin: 07/24/18 13:57 Dose: 100 mg Cholecalciferol (Vitamin D) 1,000 unit PO DAILYCM [facility] Last Admin: 07/25/18 08:19 Dose: 1,000 unit Clonazepam (Klonopin) 1 mg PO 1200 [facility] Last Admin: 07/24/18 12:16 Dose: 1 mg Clonazepam (Klonopin) 0.5 mg PO BREAKFAST [facility] Last Admin: 07/25/18 08:19 Dose: 0.5 mg Clonazepam (Klonopin) 1 mg PO QHS [facility] Last Admin: 07/24/18 21:54 Dose: 1 mg Clozapine (Clozaril) 100 mg PO LUNCH [facility] Last Admin: 07/24/18 12:16 Dose: 100 mg Clozapine (Clozaril) 200 mg PO DINNER [facility] Last Admin: 07/24/18 17:28 Dose: 200 mg Clozapine (Clozaril) 300 mg PO QHS [facility] Last Admin: 07/24/18 21:55 Dose: 300 mg Dextrose (D50w Syringe) 0 gm IV X1 PRN; Protocol PRN Reason: Hypoglycemia Docusate Sodium (Colace) 100 mg PO BID [facility] Last Admin: 07/25/18 10:38 Dose: 100 mg Enoxaparin Sodium (Lovenox) 40 mg SC DAILY@1000 [facility] Last Admin: 07/25/18 10:37 Dose: 40 mg Furosemide (Lasix) 40 mg PO BID@1000,1800 [facility] Last Admin: 07/25/18 10:38 Dose: 40 mg Glucagon () 1 mg IM .X1 PRN PRN Reason: Hypoglycemia Guaifenesin (Mucinex) 1,200 mg PO BID [facility] Last Admin: 07/25/18 10:39 Dose: 1,200 mg Ceftriaxone Sodium (Rocephin) 1 gm in 50 mls @ 100 mls/hr IV Q24H [facility] Last Admin: 07/24/18 09:00 Dose: 100 mls/hr Insulin Glargine (Lantus (Bkc)) 30 units SC BREAKFAST [facility] Last Admin: 07/25/18 08:20 Dose: 30 units Insulin Glargine (Lantus (Bkc)) 30 units SC QHS [facility] Last Admin: 07/24/18 21:56 Dose: 30 u Insulin Human Lispro (Humalog Kwikpen (Bkc)) 0 unit SQ ACHS [facility]; Protocol Last Admin: 07/25/18 08:24 Dose: 2 units Insulin Human Lispro (Humalog Kwikpen (Bkc)) 10 unit SC TIDAC [facility] Last Admin: 07/25/18 08:25 Dose: 10 units Lactulose (Chronulac, Cephulac) 20 gm PO BID [facility] Last Admin: 07/25/18 10:37 Dose: 20 gm Magnesium Hydroxide (Milk Of Magnesia) 30 ml PO DAILY PRN PRN PRN Reason: Constipation Oxycodone HCl (Oxyir) 5 mg PO Q4H PRN PRN PRN Reason: Moderate Pain (pain scale 4-5) Potassium Chloride (K-Dur) 20 meq PO DAILY@0800 [facility] Last Admin: 07/25/18 08:19 Dose: 20 meq Pravastatin Sodium (Pravachol) 20 mg PO QHS [facility] Last Admin: 07/24/18 21:55 Dose: 20 mg Prednisone () 40 mg PO DAILY@0800 [facility] Last Admin: 07/25/18 08:20 Dose: 40 mg Promethazine HCl (Phenergan) 12.5 mg IM Q6H PRN PRN PRN Reason: NAUSEA/VOMITING Risperidone (Risperdal) 2 mg PO QHS [facility] Last Admin: 07/24/18 21:55 Dose: 2 mg Sodium Chloride () 5 - 30 ml IV UD PRN PRN Reason: SALINE FLUSH Last Admin: 07/23/18 11:30 Dose: 10 ml Sodium Chloride ([place] Nasal [place]) 1 spray NASAL TID PRN PRN PRN Reason: NASAL DRYNESS Last Admin: 07/25/18 08:17 Dose: 1 spray Venlafaxine HCl (Effexor Xr) 37.5 mg PO DAILY [facility] Last Admin: 07/25/18 10:38 Dose: 37.5 mg Code Visit Inpatient E&M: 13846 Subs Hosp L2
[2018-07-25] MEDS: Ceftriaxone 1 GM/50 ML BAG IV (13:18)
[2018-07-25 18:01] LABS: Bedside Glucose 185 mg/dL (70-110)
[2018-07-25] MEDS: oxyCODONE 5 MG Tablet PO (19:47)
[2018-07-25 21:10] LABS: Bedside Glucose 297 mg/dL (70-110)
[2018-07-25] MEDS: Pravastatin 20 MG Tablet PO (21:24)
[2018-07-25] MEDS: RisperiDONE 2 MG Tablet PO (23:00)
[2018-07-26] VITALS (12 sets, daily range): BP systolic 120–138; BP diastolic 64–80; PULSE 98–120; RESP 20–32; TEMP 36.4–36.9; O2SAT 92–96
[2018-07-26 06:01] LABS: Hematocrit 43.6 % (37-47); Hemoglobin 14.1 g/dl (12.0-15.0); Mean Corp Hgb Conc 32.3 g/gl (32-36); Mean Corpuscular Hgb 29.2 pg (27.0-32.0); Mean Corpuscular Volume 90.3 fL (81-99); Mean Platelet Vol. 9.4 fl (6.2-12.0); Platelet Count 256 K/mm3 (150-450); RBC Distribution Width CV 14.1 % (11.6-14.6); RBC Distribution Width SD 46.2 fl (35.1-43.9); Red Blood Count 4.83 M/mm3 (4.2-5.4); White Blood Count 14.1 K/mm3 (4.4-11.0)
[2018-07-26 06:08] LABS: Scan Indicated on CBC? Y/N NO
[2018-07-26 06:30] LABS: Bedside Glucose 175 mg/dL (70-110)
[2018-07-26 06:48] LABS: Anion Gap 10 (5-15); BUN 15 mg/dL (7-18); BUN/Creat Ratio 22.6 RATIO (10-20); Calcium,Total 9.6 mg/dL (8.5-10.1); Chloride 96 mmol/L (98-107); Creatinine, Serum 0.66 mg/dL (0.55-1.02); EST Glomerular Filtration Rate 98 mL/min (>60); Est Glom Filt Rate - Afr Amer 119 mL/min (>60); Estimated Creatinine Clearance 73.53 ml/min; Glucose 159 mg/dL (74-106); Sodium Level 138 mmol/L (136-145)
[2018-07-26] MEDS: Ipratropium/Albuterol Sulfate 3 ML AMPUL.NEB INHALATION ×3 (06:56→19:12)
--- NOTE | 2018-07-26 07:25 | PCM.PN.HOSP ---
Subjective: Patient seen plan to discharge patient back to her detention on 07/25/2018 was discontinued due to patient requiring continuous oxygen. Seen this a.m. still has significant bronchospasm. Consultation was therefore placed to pulmonary medicine Objective: GENERAL: cooperative HEENT: Atraumatic; moist oral mucosa EYES; Anicteric, Normal Conjunctiva NECK; supple, normal thyroid, no distended JVD. RESPIRATORY: Diminished to auscultation bilaterally, bilateral wheezes CARDIOVASCULAR: Regular S1 S2, no audible murmurs GI: soft, non-tender, normoactive bowel sounds, : No Renal angle tenderness; EXTREMITIES: No edema, no clubbing, no cyanosis. MUSCULOSKELETAL: No Joint Tenderness; no muscle waisting NEURO: Awake; no lateralizing signs. SKIN: No Rash PSYCH; Normal affect Vitals/I&O's: Vital Signs Temp Pulse Resp BP Pulse Ox 97.8 F 107 H 23 H 138/80 H 95 07/26/18 04:00 07/26/18 04:00 07/26/18 04:00 07/26/18 04:00 07/26/18 04:00 Oxygen Flow Rate (L/min) 3 Oxygen Delivery Method Nasal Cannula Weight: 88.81 kg Body Mass Index (BMI) 37.0 Intake and Output for Last 24 Hours 07/24/18 07/25/18 07/26/18 23:59 23:59 23:59 Intake Total 1600 / 1600 1750 / 1750 550 / 550 Output Total 2500 / 2500 1850 / 1850 Balance -900 / -900 -100 / -100 550 / 550 Microbiology Past 72 Hours 07/25/18 14:07 Sputum, Expectorated/Coughed Gram Stain - Preliminary 07/22/18 14:10 Blood Culture (Wb) - Anticubital Right Blood Culture - Preliminary No growth in 48 hours. 07/23/18 11:08 Mucosa - Nasopharyngeal Respiratory Panel (PCR) - Final Rhinovirus Laboratory Results 07/25/18 08:22: POC Glucose 161 H 07/25/18 13:00: POC Glucose 393 H 07/25/18 17:45: POC Glucose 185 H 07/25/18 21:04: POC Glucose 297 H 07/26/18 05:45: WBC 14.1 H, RBC 4.83, Hgb 14.1, Hct 43.6, MCV 90.3, MCH 29.2, MCHC 32.3, RDW 14.1, RDW Differential 46.2 H, Plt Count 256, MPV 9.4 07/26/18 05:45: Sodium 138, Potassium 4.0, Chloride 96 L, Carbon Dioxide 32.0, Anion Gap 10, BUN 15, Creatinine 0.66, Estim Creat Clear Calc 73.53, Est GFR (MDRD) Af Amer 119, Est GFR (MDRD) Non-Af 98, BUN/Creatinine Ratio 22.6 H, Glucose 159 H, Calcium 9.6 07/26/18 06:21: POC Glucose 175 H Current Medications Al Hydroxide/Mg Hydroxide (Mylanta Ii) 30 ml PO Q6H PRN PRN PRN Reason: Gastric burning Albuterol Sulfate (Ventolin Aerosols) 2.5 mg INHALATION Q2H PRN PRN PRN Reason: SHORTNESS OF BREATH Last Admin: 07/23/18 21:10 Dose: 2.5 mg Albuterol/Ipratropium (Duoneb) 3 ml INHALATION Q4H.RT [facility] Last Admin: 07/26/18 06:56 Dose: 3 ml Benzonatate (Tessalon Perle) 100 mg PO Q4H PRN PRN PRN Reason: COUGH Last Admin: 07/25/18 19:47 Dose: 100 mg Cholecalciferol (Vitamin D) 1,000 unit PO DAILYCM [facility] Last Admin: 07/25/18 08:19 Dose: 1,000 unit Clonazepam (Klonopin) 1 mg PO 1200 [facility] Last Admin: 07/25/18 13:17 Dose: 1 mg Clonazepam (Klonopin) 0.5 mg PO BREAKFAST [facility] Last Admin: 07/25/18 08:19 Dose: 0.5 mg Clonazepam (Klonopin) 1 mg PO QHS [facility] Last Admin: 07/25/18 21:24 Dose: 1 mg Clozapine (Clozaril) 100 mg PO LUNCH [facility] Last Admin: 07/25/18 13:17 Dose: 100 mg Clozapine (Clozaril) 200 mg PO DINNER [facility] Last Admin: 07/25/18 17:50 Dose: 200 mg Clozapine (Clozaril) 300 mg PO QHS [facility] Last Admin: 07/25/18 21:23 Dose: 300 mg Dextrose (D50w Syringe) 0 gm IV X1 PRN; Protocol PRN Reason: Hypoglycemia Docusate Sodium (Colace) 100 mg PO BID [facility] Last Admin: 07/25/18 21:24 Dose: 100 mg Enoxaparin Sodium (Lovenox) 40 mg SC DAILY@1000 [facility] Last Admin: 07/25/18 10:37 Dose: 40 mg Furosemide (Lasix) 40 mg PO BID@1000,1800 [facility] Last Admin: 07/25/18 17:50 Dose: 40 mg Glucagon () 1 mg IM .X1 PRN PRN Reason: Hypoglycemia Guaifenesin (Mucinex) 1,200 mg PO BID [facility] Last Admin: 07/25/18 21:23 Dose: 1,200 mg Ceftriaxone Sodium (Rocephin) 1 gm in 50 mls @ 100 mls/hr IV Q24H [facility] Last Admin: 07/25/18 13:18 Dose: 100 mls/hr Insulin Glargine (Lantus (Bkc)) 30 units SC BREAKFAST [facility] Last Admin: 07/25/18 08:20 Dose: 30 units Insulin Glargine (Lantus (Bkc)) 30 units SC QHS [facility] Last Admin: 07/25/18 21:25 Dose: 30 u Insulin Human Lispro (Humalog Kwikpen (Bkc)) 0 unit SQ ACHS [facility]; Protocol Last Admin: 07/25/18 21:25 Dose: 6 units Insulin Human Lispro (Humalog Kwikpen (Bkc)) 10 unit SC TIDAC [facility] Last Admin: 07/25/18 17:47 Dose: 10 units Lactulose (Chronulac, Cephulac) 20 gm PO BID [facility] Last Admin: 07/25/18 21:24 Dose: 20 gm Magnesium Hydroxide (Milk Of Magnesia) 30 ml PO DAILY PRN PRN PRN Reason: Constipation Oxycodone HCl (Oxyir) 5 mg PO Q4H PRN PRN PRN Reason: Moderate Pain (pain scale 4-5) Last Admin: 07/25/18 19:47 Dose: 5 mg Potassium Chloride (K-Dur) 20 meq PO DAILY@0800 [facility] Last Admin: 07/25/18 08:19 Dose: 20 meq Pravastatin Sodium (Pravachol) 20 mg PO QHS [facility] Last Admin: 07/25/18 21:24 Dose: 20 mg Prednisone () 40 mg PO DAILY@0800 [facility] Last Admin: 07/25/18 08:20 Dose: 40 mg Promethazine HCl (Phenergan) 12.5 mg IM Q6H PRN PRN PRN Reason: NAUSEA/VOMITING Risperidone (Risperdal) 2 mg PO QHS [facility] Last Admin: 07/25/18 23:00 Dose: 2 mg Sodium Chloride () 5 - 30 ml IV UD PRN PRN Reason: SALINE FLUSH Last Admin: 07/23/18 11:30 Dose: 10 ml Sodium Chloride ([place] Nasal [place]) 1 spray NASAL TID PRN PRN PRN Reason: NASAL DRYNESS Last Admin: 07/25/18 19:49 Dose: 1 spray Venlafaxine HCl (Effexor Xr) 37.5 mg PO DAILY [facility] Last Admin: 07/25/18 10:38 Dose: 37.5 mg Medical Necessity - Tobacco Use Smoking Status: Former smoker Assessment/Plan All Active Problems Wheezing (Acute) FTT (failure to thrive) in adult (Resolved) copd (Acute) Patient is a 52-year-old lady presented with progressive shortness of breath with significant wheezing found to have right upper lobe infiltrate consistent with pneumonia admitted to monitored bed for further management 1. Acute respiratory insufficiency secondary to combination of COPD with acute exacerbation as well as community-acquired pneumonia 2. Pneumonia: Suspected to be secondary to streptococci pneumonia. Patient is admitted to regular floor. Blood and sputum cultures sent. Patient placed on Rocephin and Zithromax. Patient was also placed on oxygen titrated to keep also is greater than 90 plan was for patient to have been discharged back to her detention however with patient requiring oxygen decision was made to cancel patient's discharge to home and instead arrangement made for patient to be transferred to a longterm facility. 3. Acute COPD exacerbation: Possibly preceded by above patient treated with bronchodilator treatment, systemic steroid in addition to antibiotics as well as supplemental oxygen. Consultation was placed to pulmonary medicine on 07/26/2018 in view of persistent bronchospasm 4. Chronic diastolic congestive heart failure stable 5. Diabetes mellitus type 2 with complications including hyperglycemia; patient is on long-acting insulin Lantus did continue with home dose and subsequently placed on Accu-Cheks before meals and at bedtime with sliding scale coverage 6. Obstructive sleep apnea patient is on CPAP at night 7. Schizophrenia currently stable: Did continue with patient anti-psychotropic medications 8. Dyslipidemia-patient is on statin therapy, continued at home dose 9. Obesity with BMI of 37 10. DVT prophylaxis SC Lovenox Code Visit Inpatient E&M: 20271 Subs Hosp L2
--- NOTE | 2018-07-26 08:36 | PCM.CONS.GEN ---
Reason for Consult Date of Consultation: 07/26/18 Reason for Consultation: COPD exacerbation History of Present Illness: The patient is a 52-year-old female, with a history as outlined below, who initially presented to the emergency department on July 22 with complaints of shortness of breath and cough. The patient does currently reside in a prison and has an unspecified learning disability and schizophrenia. Although COPD is listed on her medical history, pulmonary function testing has been never been completed to confirm this assertion. While the patient does report a limited, remote smoking history, she reports to me that she does not utilize inhalers at her baseline. She only utilizes supplemental oxygen while sleeping normally. On presentation to the emergency department, the patient was noted to be tachycardic, tachypneic and requiring 3 L/min via nasal cannula. Laboratory evaluation at that time revealed an elevated white blood cell count to 16,000. Chemistry profile was largely unremarkable, with the exception of an elevated blood glucose level. Plain film chest x-ray revealed evidence of a right upper lobe opacity. The patient was subsequently placed on antibiotics for community-acquired pneumonia and admitted to the medical surgical floor for ongoing management. To date, the patient has been treated with scheduled bronchodilators, antibiotics and Lasix. We were consulted this morning for continued bronchospasm. A CT chest was obtained on July 22 did reveal evidence of bilateral upper lobe infiltrates. A CT neck was obtained due to stridor, which was largely unremarkable. The patient's only complaint currently is for that of being tired. Past Medical History Past Medical History (Chronic Problems): Chronic Problems Nonproductive cough (Chronic) COPD (chronic obstructive pulmonary disease) (Chronic) Hyperlipidemia (Chronic) Diabetes mellitus type 2 in obese (Chronic) HTN (hypertension) (Chronic) Schizophrenia (Chronic) Allergies No Known Allergies Allergy (Verified 07/22/18 09:30) Home Medications: Ambulatory Orders Medication Instructions Recorded Clozapine [Clozaril] 100 mg PO LUNCH 03/28/14 Metformin HCl [Glucophage] 1,000 mg PO BID 03/28/14 Risperidone [Risperdal] 2 mg PO QHS 03/28/14 glipiZIDE [Glucotrol] 5 mg PO BIDAC 03/28/14 Clozapine [Clozaril] 300 mg PO QHS 12/23/14 Insulin Glargine [Lantus SoloStar 24 units SC QHS 12/23/14 Pen] Desvenlafaxine Succinate [Pristiq] 50 mg PO DAILY 07/25/15 Risperidone Microspheres 50 mg IM Q14D 07/25/15 [Risperdal Consta] Tiotropium [place] [Spiriva 18 MCG] 1 puff INHALATION DAILY 07/25/15 Pravastatin Sodium 20 mg PO QHS 12/18/16 Clozapine [Clozaril] 200 mg PO DINNER 10/11/17 Potassium Chloride [K-Dur] 20 meq PO DAILY #30 tab 10/16/17 Cholecalciferol (Vitamin D3) 1,000 unit PO DAILY 10/17/17 [Vitamin D3] [place]-3 Fatty Acids/Fish Oil [Fish 1 each PO DAILY 10/17/17 Oil 1,000 mg Capsule] Albuterol IH (ProAir) [Proair Hfa] 2 puff INHALATION PRN PRN 07/22/18 Aspirin [Aspirin EC] 325 mg PO DAILY 07/22/18 Clonazepam [Klonopin] 0.5 mg PO BREAKFAST 07/22/18 Clonazepam [Klonopin] 1 mg PO 1200 07/22/18 Clonazepam [Klonopin] 1 mg PO QHS 07/22/18 Ferrous Gluconate 325 mg PO BIDCM 07/22/18 Fluticasone/Vilanterol [Breo 1 each IH DAILY 07/22/18 Ellipta 100-25 Mcg INH] Fluticasone/Vilanterol [Breo 1 inhaler 07/22/18 Ellipta 100-25 Mcg INH] Furosemide [Lasix] 20 mg PO DAILY 07/22/18 Lubiprostone [Amitiza] 24 mcg PO BID 07/22/18 Olopatadine HCl [Patanol] 1 drop EACH EYE DAILY 07/22/18 Benzonatate [Tessalon Perle] 100 mg PO Q4H PRN PRN #20 cap 07/25/18 Prednisone 10 mg PO UD #30 tab 07/25/18 levoFLOXacin tablet [Levaquin 750 mg PO DAILY #5 tab 07/25/18 tablet] Surgical History: noncontributory Psychiatric History: Anxiety, Depression, Schizophrenia [employer] History: No pertinent [employer] history Smoking Status: Former smoker - *Family History Paternal History Items: - - from a farm accident Maternal History Items: No pertinent history Review of Systems Constitutional: Denies: Chills, Fever, Night Sweats Eyes: Denies: Blurred vision, Double vision HEENT: Denies: Head Aches, Sinus Congestion, Sinus Drainage Cardiovascular: Reports: Chest Tightness Respiratory: Reports: Cough, Shortness of Breath Gastrointestinal: Denies: Abdominal Pain, Nausea, Vomiting Genitourinary: Denies: Dysuria Musculoskeletal: Denies: Joint Pain, Joint Tenderness Skin: Denies: Rash, Wounds Neurological: Denies: Numbness, Tingling, Focal weakness Psychiatric: Reports: Anxiety, Depression Hematologic/ Lymphatic: Denies: Easy Bruising, Easy Bleeding Objective: The patient's most recent lab work, culture data and imaging studies have all been personally reviewed. Strep and urine Legionella antigens were both negative. Blood cultures have not shown any growth to date. Respiratory viral panel was positive for rhinovirus. Sputum Gram stain and culture are currently pending. Surface echocardiogram from October 2017 revealed normal size and function of the patient's LV with an ejection fraction of 65% and normal right ventricular systolic pressures. - Physical Exam General: Alert, Cooperative, No apparent distress HEENT: Atraumatic, PERRLA, Normocephalic Oral: No Gingival or Mucosal Lesions/ Ulcerations Neck: Supple, No Nodes, Trachea Midline Lungs: No rhonchi, No rales, Diminished, Wheezes Cardiovascular: Regular rate, Regular Rhythm, Normal S1, Normal S2, No murmurs Abdomen: Bowel Sounds Present, Soft, Non Tender, Obese Extremities: No clubbing, No cyanosis, No edema Skin: No breakdown Musculoskeletal: No Muscle Wasting Lymphatic: No Cervical, Supraclavicular, or Inguinal Adenopathy Neurological: Neuro grossly intact Psych/Mental Status: Normal Affect, Appropriate Vital Signs Temp Pulse Resp BP Pulse Ox 97.8 F 106 H 28 H 138/80 H 94 07/26/18 04:00 07/26/18 06:56 07/26/18 06:56 07/26/18 04:00 07/26/18 06:56 Oxygen Flow Rate (L/min) 4 Oxygen Delivery Method Nasal Cannula Weight: 195 lb 12.68 oz Body Mass Index (BMI) 37.0 Intake and Output for Last 24 Hours 07/24/18 07/25/18 07/26/18 23:59 23:59 23:59 Intake Total 1600 / 1600 1750 / 1750 550 / 550 Output Total 2500 / 2500 1850 / 1850 Balance -900 / -900 -100 / -100 550 / 550 Microbiology Past 72 Hours 07/25/18 14:07 Gram Stain - Preliminary Sputum, Expectorated/Coughed 07/22/18 14:10 Blood Culture - Preliminary Blood Culture (Wb) - Anticubital Right No growth in 48 hours. 07/23/18 11:08 Respiratory Panel (PCR) - Final Mucosa - Nasopharyngeal Rhinovirus Laboratory Tests Past 24 Hrs 07/26/18 07/26/18 05:45 05:45 WBC 14.1 H RBC 4.83 Hgb 14.1 Hct 43.6 MCV 90.3 MCH 29.2 MCHC 32.3 RDW 14.1 RDW Differential 46.2 H Plt Count 256 MPV 9.4 Sodium 138 Potassium 4.0 Chloride 96 L Carbon Dioxide 32.0 Anion Gap 10 BUN 15 Creatinine 0.66 Estim Creat Clear Calc 73.53 Est GFR (MDRD) Af Amer 119 Est GFR (MDRD) Non-Af 98 BUN/Creatinine Ratio 22.6 H Glucose 159 H Calcium 9.6 POC Glucose 07/26/18 07/25/18 07/25/18 06:21 21:04 17:45 POC Glucose 175 H 297 H 185 H 07/25/18 07/25/18 13:00 08:22 POC Glucose 393 H 161 H Clinical Impression(s) from Imaging Studies Chest X-Ray 07/22/18 09:58 IMPRESSION: There is now a small focal right upper lobe pulmonary parenchymal consolidation, consider infiltrate. Follow-up to clearing recommended. Electronically Signed: Reina Mcrae MD at 10:52 EDT , Service support , Chest CT 07/22/18 13:53 IMPRESSION: Bilateral upper lobe pulmonary parenchymal infiltrates, consider bronchopneumonia. Hepatomegaly with hepatic steatosis. Electronically Signed: Reina Mcrae MD at 15:20 EDT , Service support , Soft Tissue Neck CT 07/23/18 07:46 IMPRESSION: Normal enhanced CT examination of the soft tissues of the neck. Electronically Signed: Reina Mcrae MD at 10:50 EDT , Service support , Assessment/Plan All Active Problems Wheezing (Acute) FTT (failure to thrive) in adult (Resolved) copd (Acute) RECOMMENDATIONS: 1. Continue scheduled bronchodilators and steroids. 2. We will ask respiratory therapy to provide the patient with serial aerosol treatments this morning in the form of albuterol every 1 hour x3 doses. 3. Continue to wean supplemental oxygen. 4. Encourage incentive spirometer use and mobilize patient as tolerated. 5. Recommend outpatient PFTs and follow-up in the pulmonary medicine clinic upon discharge from the hospital. IMPRESSIONS: 1. Acute hypoxic respiratory insufficiency May be secondary to underlying bronchospastic airway disease with exacerbation secondary to rhinovirus respiratory infection. Although the patient has COPD listed in her medical history, she has never had pulmonary function testing completed to confirm this assertion. Recommend continuing scheduled bronchodilators as ordered. The patient will be ordered serial aerosol treatments this morning with albuterol every 1 hour x3 doses. If the patient develops tachycardia with treatments, Atrovent can be substituted. Continue steroids as ordered. Encourage incentive spirometer use and mobilize patient as tolerated. Wean supplemental oxygen to maintain saturations at or above 90%. 2. Diabetes mellitus/obstructive sleep apnea/schizophrenia/obesity/hyperlipidemia Complicates care, management, recovery and prognosis. Likely okay to continue home medications as ordered. This note was generated with [employer] dictation software. It may contain incorrect words, spelling, and punctuation that were not noted in checking the note before signing. Code Visit Inpatient E&M: 45282 Init Hosp L2
--- NOTE | 2018-07-26 08:40 | CON.PCM_ITS ---
Reason for Consult Date of Consultation: 07/26/18 Reason for Consultation: COPD exacerbation History of Present Illness: The patient is a 52-year-old female, with a history as outlined below, who initially presented to the emergency department on July 22 with complaints of shortness of breath and cough. The patient does currently reside in a custodial and has an unspecified learning disability and schizophrenia. Although COPD is listed on her medical history, pulmonary function testing has been never been completed to confirm this assertion. While the patient does report a limited, remote smoking history, she reports to me that she does not utilize inhalers at her baseline. She only utilizes supplemental oxygen while sleeping normally. On presentation to the emergency department, the patient was noted to be tachycardic, tachypneic and requiring 3 L/min via nasal cannula. Laboratory evaluation at that time revealed an elevated white blood cell count to 16,000. Chemistry profile was largely unremarkable, with the exception of an elevated blood glucose level. Plain film chest x-ray revealed evidence of a right upper lobe opacity. The patient was subsequently placed on antibiotics for community- acquired pneumonia and admitted to the medical surgical floor for ongoing management. To date, the patient has been treated with scheduled bronchodilators, antibiotics and Lasix. We were consulted this morning for continued bronchospasm. A CT chest was obtained on July 22 did reveal evidence of bilateral upper lobe infiltrates. A CT neck was obtained due to stridor, which was largely unremarkable. The patient's only complaint currently is for that of being tired. Past Medical History Past Medical History (Chronic Problems): Chronic Problems Nonproductive cough (Chronic) COPD (chronic obstructive pulmonary disease) (Chronic) Hyperlipidemia (Chronic) Diabetes mellitus type 2 in obese (Chronic) HTN (hypertension) (Chronic) Schizophrenia (Chronic) Allergies No Known Allergies Allergy (Verified 07/22/18 09:30) Home Medications: Ambulatory Orders Medication Instructions Recorded Clozapine [Clozaril] 100 mg PO LUNCH 03/28/14 Metformin HCl [Glucophage] 1,000 mg PO BID 03/28/14 Risperidone [Risperdal] 2 mg PO QHS 03/28/14 glipiZIDE [Glucotrol] 5 mg PO BIDAC 03/28/14 Clozapine [Clozaril] 300 mg PO QHS 12/23/14 Insulin Glargine [Lantus SoloStar 24 units SC QHS 12/23/14 Pen] Desvenlafaxine Succinate [Pristiq] 50 mg PO DAILY 07/25/15 Risperidone Microspheres 50 mg IM Q14D 07/25/15 [Risperdal Consta] Tiotropium [place] [Spiriva 18 MCG] 1 puff INHALATION DAILY 07/25/15 Pravastatin Sodium 20 mg PO QHS 12/18/16 Clozapine [Clozaril] 200 mg PO DINNER 10/11/17 Potassium Chloride [K-Dur] 20 meq PO DAILY #30 tab 10/16/17 Cholecalciferol (Vitamin D3) 1,000 unit PO DAILY 10/17/17 [Vitamin D3] [place]-3 Fatty Acids/Fish Oil [Fish 1 each PO DAILY 10/17/17 Oil 1,000 mg Capsule] Albuterol IH (ProAir) [Proair Hfa] 2 puff INHALATION PRN PRN 07/22/18 Aspirin [Aspirin EC] 325 mg PO DAILY 07/22/18 Clonazepam [Klonopin] 0.5 mg PO BREAKFAST 07/22/18 Clonazepam [Klonopin] 1 mg PO 1200 07/22/18 Clonazepam [Klonopin] 1 mg PO QHS 07/22/18 Ferrous Gluconate 325 mg PO BIDCM 07/22/18 Fluticasone/Vilanterol [Breo 1 each IH DAILY 07/22/18 Ellipta 100-25 Mcg INH] Fluticasone/Vilanterol [Breo 1 inhaler 07/22/18 Ellipta 100-25 Mcg INH] Furosemide [Lasix] 20 mg PO DAILY 07/22/18 Lubiprostone [Amitiza] 24 mcg PO BID 07/22/18 Olopatadine HCl [Patanol] 1 drop EACH EYE DAILY 07/22/18 Benzonatate [Tessalon Perle] 100 mg PO Q4H PRN PRN #20 cap 07/25/18 Prednisone 10 mg PO UD #30 tab 07/25/18 levoFLOXacin tablet [Levaquin 750 mg PO DAILY #5 tab 07/25/18 tablet] Surgical History: noncontributory Psychiatric History: Anxiety, Depression, Schizophrenia LPN RN History: No pertinent LPN RN history Smoking Status: Former smoker - *Family History Paternal History Items: - - from a farm accident Maternal History Items: No pertinent history Review of Systems Constitutional: Denies: Chills, Fever, Night Sweats Eyes: Denies: Blurred vision, Double vision HEENT: Denies: Head Aches, Sinus Congestion, Sinus Drainage Cardiovascular: Reports: Chest Tightness Respiratory: Reports: Cough, Shortness of Breath Gastrointestinal: Denies: Abdominal Pain, Nausea, Vomiting Genitourinary: Denies: Dysuria Musculoskeletal: Denies: Joint Pain, Joint Tenderness Skin: Denies: Rash, Wounds Neurological: Denies: Numbness, Tingling, Focal weakness Psychiatric: Reports: Anxiety, Depression Hematologic/ Lymphatic: Denies: Easy Bruising, Easy Bleeding Objective: The patient's most recent lab work, culture data and imaging studies have all been personally reviewed. Strep and urine Legionella antigens were both negative. Blood cultures have not shown any growth to date. Respiratory viral panel was positive for rhinovirus. Sputum Gram stain and culture are currently pending. Surface echocardiogram from October 2017 revealed normal size and function of the patient's LV with an ejection fraction of 65% and normal right ventricular systolic pressures. - Physical Exam General: Alert, Cooperative, No apparent distress HEENT: Atraumatic, PERRLA, Normocephalic Oral: No Gingival or Mucosal Lesions/ Ulcerations Neck: Supple, No Nodes, Trachea Midline Lungs: No rhonchi, No rales, Diminished, Wheezes Cardiovascular: Regular rate, Regular Rhythm, Normal S1, Normal S2, No murmurs Abdomen: Bowel Sounds Present, Soft, Non Tender, Obese Extremities: No clubbing, No cyanosis, No edema Skin: No breakdown Musculoskeletal: No Muscle Wasting Lymphatic: No Cervical, Supraclavicular, or Inguinal Adenopathy Neurological: Neuro grossly intact Psych/Mental Status: Normal Affect, Appropriate Vital Signs Temp Pulse Resp BP Pulse Ox 97.8 F 106 H 28 H 138/80 H 94 07/26/18 04:00 07/26/18 06:56 07/26/18 06:56 07/26/18 04:00 07/26/18 06:56 Oxygen Flow Rate (L/min) 4 Oxygen Delivery Method Nasal Cannula Weight: 195 lb 12.68 oz Body Mass Index (BMI) 37.0 Intake and Output for Last 24 Hours 07/24/18 07/25/18 07/26/18 23:59 23:59 23:59 Intake Total 1600 / 1600 1750 / 1750 550 / 550 Output Total 2500 / 2500 1850 / 1850 Balance -900 / -900 -100 / -100 550 / 550 Microbiology Past 72 Hours 07/25/18 14:07 Gram Stain - Preliminary Sputum, Expectorated/Coughed 07/22/18 14:10 Blood Culture - Preliminary Blood Culture (Wb) - Anticubital Right No growth in 48 hours. 07/23/18 11:08 Respiratory Panel (PCR) - Final Mucosa - Nasopharyngeal Rhinovirus Laboratory Tests Past 24 Hrs 07/26/18 07/26/18 05:45 05:45 WBC 14.1 H RBC 4.83 Hgb 14.1 Hct 43.6 MCV 90.3 MCH 29.2 MCHC 32.3 RDW 14.1 RDW Differential 46.2 H Plt Count 256 MPV 9.4 Sodium 138 Potassium 4.0 Chloride 96 L Carbon Dioxide 32.0 Anion Gap 10 BUN 15 Creatinine 0.66 Estim Creat Clear Calc 73.53 Est GFR (MDRD) Af Amer 119 Est GFR (MDRD) Non-Af 98 BUN/Creatinine Ratio 22.6 H Glucose 159 H Calcium 9.6 POC Glucose 07/26/18 07/25/18 07/25/18 06:21 21:04 17:45 POC Glucose 175 H 297 H 185 H 07/25/18 07/25/18 13:00 08:22 POC Glucose 393 H 161 H Clinical Impression(s) from Imaging Studies Chest X-Ray 07/22/18 09:58 IMPRESSION: There is now a small focal right upper lobe pulmonary parenchymal consolidation, consider infiltrate. Follow-up to clearing recommended. Electronically Signed: Reina Mcrae MD at 10:52 EDT , Service support , Chest CT 07/22/18 13:53 IMPRESSION: Bilateral upper lobe pulmonary parenchymal infiltrates, consider bronchopneumonia. Hepatomegaly with hepatic steatosis. Electronically Signed: Reina Mcrae MD at 15:20 EDT , Service support , Soft Tissue Neck CT 07/23/18 07:46 IMPRESSION: Normal enhanced CT examination of the soft tissues of the neck. Electronically Signed: Reina Mcrae MD at 10:50 EDT , Service support , Assessment/Plan All Active Problems Wheezing (Acute) FTT (failure to thrive) in adult (Resolved) copd (Acute) RECOMMENDATIONS: 1. Continue scheduled bronchodilators and steroids. 2. We will ask respiratory therapy to provide the patient with serial aerosol treatments this morning in the form of albuterol every 1 hour x3 doses. 3. Continue to wean supplemental oxygen. 4. Encourage incentive spirometer use and mobilize patient as tolerated. 5. Recommend outpatient PFTs and follow-up in the pulmonary medicine clinic upon discharge from the hospital. IMPRESSIONS: 1. Acute hypoxic respiratory insufficiency May be secondary to underlying bronchospastic airway disease with exacerbation secondary to rhinovirus respiratory infection. Although the patient has COPD listed in her medical history, she has never had pulmonary function testing completed to confirm this assertion. Recommend continuing scheduled bronchodilators as ordered. The patient will be ordered serial aerosol treatments this morning with albuterol every 1 hour x3 doses. If the patient develops tachycardia with treatments, Atrovent can be substituted. Continue steroids as ordered. Encourage incentive spirometer use and mobilize patient as tolerated. Wean supplemental oxygen to maintain saturations at or above 90%. 2. Diabetes mellitus/obstructive sleep apnea/schizophrenia/obes ity/hyperlipidemia Complicates care, management, recovery and prognosis. Likely okay to continue home medications as ordered. This note was generated with [employer] dictation software. It may contain incorrect words, spelling, and punctuation that were not noted in checking the note before signing. Code Visit Inpatient E&M: 25503 Init Hosp L2
[2018-07-26] MEDS: predniSONE 20 MG Tablet 40 MG PO (08:53)
[2018-07-26] MEDS: Insulin Lispro 100 UNIT/ML INSULN.PEN 10 UNIT SC ×3 (08:54→17:01)
[2018-07-26] MEDS: clonazePAM 0.5 MG Tablet PO (08:54)
[2018-07-26] MEDS: Insulin Lispro 100 UNIT/ML INSULN.PEN SQ ×4 (08:55→21:16)
[2018-07-26] MEDS: Sodium Chloride 0.65% 1 SPRAY SPRAY.BTL NASAL ×3 (09:08→17:04)
[2018-07-26] MEDS: Furosemide 40 MG Tablet PO ×2 (10:38→17:04)
[2018-07-26] MEDS: Ceftriaxone 1 GM/50 ML BAG IV (10:38)
[2018-07-26] MEDS: Enoxaparin 40 MG/0.4 ML Syringe SC (10:38)
[2018-07-26] MEDS: Venlafaxine XR 37.5 MG Capsule PO (10:38)
[2018-07-26] MEDS: guaiFENesin 1,200 MG Tablet 1200 MG PO ×2 (10:38→21:15)
[2018-07-26] MEDS: Docusate Sodium 100 MG Capsule PO ×2 (10:38→21:15)
[2018-07-26] MEDS: Lactulose 20 GM/30 ML UDC PO ×2 (10:40→21:15)
[2018-07-26] MEDS: 0.9% NaCl Peripheral Flush Adult/Peds IV (10:41)
[2018-07-26] MEDS: Albuterol 2.5 MG/3 ML VIAL.NEB. INHALATION ×2 (12:16→14:01)
[2018-07-26] MEDS: clonazePAM 1 MG Tablet PO ×2 (12:35→21:16)
[2018-07-26 12:50] LABS: Bedside Glucose 401 mg/dL (70-110)
[2018-07-26] MEDS: Benzonatate 100 MG Capsule PO (15:19)
[2018-07-26 17:21] LABS: Bedside Glucose 294 mg/dL (70-110)
[2018-07-26] MEDS: RisperiDONE 2 MG Tablet PO (21:15)
[2018-07-26] MEDS: Pravastatin 20 MG Tablet PO (21:16)
[2018-07-26 21:25] LABS: Bedside Glucose 220 mg/dL (70-110)
[2018-07-27] VITALS (11 sets, daily range): BP systolic 112–135; BP diastolic 70–86; PULSE 98–118; RESP 18–24; TEMP 36.5–36.8; O2SAT 87–97
[2018-07-27 06:25] LABS: Anion Gap 7 (5-15); BUN 16 mg/dL (7-18); BUN/Creat Ratio 26.5 RATIO (10-20); Calcium,Total 9.4 mg/dL (8.5-10.1); Chloride 96 mmol/L (98-107); EST Glomerular Filtration Rate 110 mL/min (>60); Est Glom Filt Rate - Afr Amer 133 mL/min (>60); Estimated Creatinine Clearance 80.88 ml/min; Glucose 143 mg/dL (74-106); Potassium 3.4 mmol/L (3.5-5.1); Sodium Level 137 mmol/L (136-145)
[2018-07-27] MEDS: Ipratropium/Albuterol Sulfate 3 ML AMPUL.NEB INHALATION ×5 (07:09→23:30)
[2018-07-27] MEDS: Docusate Sodium 100 MG Capsule PO ×2 (09:17→21:03)
[2018-07-27] MEDS: predniSONE 20 MG Tablet 40 MG PO (09:17)
[2018-07-27] MEDS: Lactulose 20 GM/30 ML UDC PO ×2 (09:17→21:03)
[2018-07-27] MEDS: Venlafaxine XR 37.5 MG Capsule PO (09:17)
[2018-07-27] MEDS: Enoxaparin 40 MG/0.4 ML Syringe SC (09:17)
[2018-07-27] MEDS: Furosemide 40 MG Tablet PO ×2 (09:17→17:11)
[2018-07-27] MEDS: clonazePAM 0.5 MG Tablet PO (09:17)
[2018-07-27] MEDS: Insulin Lispro 100 UNIT/ML INSULN.PEN 10 UNIT SC ×3 (09:19→16:59)
[2018-07-27] MEDS: 0.9% NaCl Peripheral Flush Adult/Peds IV (09:19)
[2018-07-27] MEDS: Ceftriaxone 1 GM/50 ML BAG IV (09:20)
--- NOTE | 2018-07-27 09:49 | PCM.PN.HOSP ---
Patient Problems: Active and Suspected Problems copd (Acute) Subjective: still SOB. non-productive cough. Vitals/I&O's: Vital Signs Temp Pulse Resp BP Pulse Ox 36.6 C 103 H 20 H 112/70 96 07/27/18 09:12 07/27/18 09:12 07/27/18 09:12 07/27/18 09:12 07/27/18 09:12 Oxygen Flow Rate (L/min) 3 Oxygen Delivery Method Nasal Cannula Weight: 88.81 kg Body Mass Index (BMI) 37.0 Intake and Output for Last 24 Hours 07/25/18 07/26/18 07/27/18 23:59 23:59 23:59 Intake Total 1750 / 1750 1250 / 1250 650 / 650 Output Total 1850 / 1850 250 / 250 800 / 800 Balance -100 / -100 1000 / 1000 -150 / -150 General: Alert, No apparent distress HEENT: Atraumatic, Normocephalic Oral: Moist Mucosa, No Gingival or Mucosal Lesions/ Ulcerations Neck: No Nuchal Rigidity, Thyroid Normal Size and Texture Lungs: Diminished, Wheezes - upper respiratory. Cardiovascular: Regular rate, Regular Rhythm, Normal S1, Normal S2, No murmurs Abdomen: Bowel Sounds Present, Soft, Non Tender, Non-Distended, No Hepato-splenomegaly Extremities: No edema, No Calf Tenderness Skin: No rashes, No breakdown Psych/Mental Status: Appropriate, Flat Affect Microbiology Past 72 Hours 07/25/18 14:07 Sputum, Expectorated/Coughed Gram Stain - Final 07/25/18 14:07 Sputum, Expectorated/Coughed Respiratory Culture - Preliminary Appears to be normal respiratory jenn. Further studies to follow. 07/22/18 14:10 Blood Culture (Wb) - Anticubital Right Blood Culture - Preliminary No growth in 48 hours. Laboratory Results 07/26/18 12:32: POC Glucose 401 H 07/26/18 16:46: POC Glucose 294 H 07/26/18 21:14: POC Glucose 220 H 07/27/18 05:45: Sodium 137, Potassium 3.4 L, Chloride 96 L, Carbon Dioxide 34.0 H, Anion Gap 7, BUN 16, Creatinine 0.60, Estim Creat Clear Calc 80.88, Est GFR (MDRD) Af Amer 133, Est GFR (MDRD) Non-Af 110, BUN/Creatinine Ratio 26.5 H, Glucose 143 H, Calcium 9.4 Current Medications Al Hydroxide/Mg Hydroxide (Mylanta Ii) 30 ml PO Q6H PRN PRN PRN Reason: Gastric burning Albuterol Sulfate (Ventolin Aerosols) 2.5 mg INHALATION Q2H PRN PRN PRN Reason: SHORTNESS OF BREATH Last Admin: 07/23/18 21:10 Dose: 2.5 mg Albuterol/Ipratropium (Duoneb) 3 ml INHALATION Q4H.RT [facility] Last Admin: 07/27/18 07:09 Dose: 3 ml Benzonatate (Tessalon Perle) 100 mg PO Q4H PRN PRN PRN Reason: COUGH Last Admin: 07/26/18 15:19 Dose: 100 mg Cholecalciferol (Vitamin D) 1,000 unit PO DAILYCM [facility] Last Admin: 07/27/18 09:17 Dose: 1,000 unit Clonazepam (Klonopin) 1 mg PO 1200 [facility] Last Admin: 07/26/18 12:35 Dose: 1 mg Clonazepam (Klonopin) 0.5 mg PO BREAKFAST [facility] Last Admin: 07/27/18 09:17 Dose: 0.5 mg Clonazepam (Klonopin) 1 mg PO QHS [facility] Last Admin: 07/26/18 21:16 Dose: 1 mg Clozapine (Clozaril) 100 mg PO LUNCH [facility] Last Admin: 07/26/18 12:35 Dose: 100 mg Clozapine (Clozaril) 200 mg PO DINNER [facility] Last Admin: 07/26/18 17:03 Dose: 200 mg Clozapine (Clozaril) 300 mg PO QHS [facility] Last Admin: 07/26/18 21:15 Dose: 300 mg Dextrose (D50w Syringe) 0 gm IV X1 PRN; Protocol PRN Reason: Hypoglycemia Docusate Sodium (Colace) 100 mg PO BID [facility] Last Admin: 07/27/18 09:17 Dose: 100 mg Enoxaparin Sodium (Lovenox) 40 mg SC DAILY@1000 [facility] Last Admin: 07/27/18 09:17 Dose: 40 mg Furosemide (Lasix) 40 mg PO BID@1000,1800 [facility] Last Admin: 07/27/18 09:17 Dose: 40 mg Glucagon () 1 mg IM .X1 PRN PRN Reason: Hypoglycemia Guaifenesin (Mucinex) 1,200 mg PO BID [facility] Last Admin: 07/26/18 21:15 Dose: 1,200 mg Ceftriaxone Sodium (Rocephin) 1 gm in 50 mls @ 100 mls/hr IV Q24H [facility] Last Admin: 07/27/18 09:20 Dose: 100 mls/hr Insulin Glargine (Lantus (Bkc)) 30 units SC BREAKFAST [facility] Last Admin: 07/27/18 09:18 Dose: 30 units Insulin Glargine (Lantus (Bkc)) 30 units SC QHS [facility] Last Admin: 07/26/18 21:16 Dose: 30 u Insulin Human Lispro (Humalog Kwikpen (Bkc)) 0 unit SQ ACHS [facility]; Protocol Last Admin: 07/27/18 08:55 Dose: Not Given Insulin Human Lispro (Humalog Kwikpen (Bkc)) 10 unit SC TIDAC [facility] Last Admin: 07/27/18 09:19 Dose: 10 units Lactulose (Chronulac, Cephulac) 20 gm PO BID [facility] Last Admin: 07/27/18 09:17 Dose: 20 gm Magnesium Hydroxide (Milk Of Magnesia) 30 ml PO DAILY PRN PRN PRN Reason: Constipation Oxycodone HCl (Oxyir) 5 mg PO Q4H PRN PRN PRN Reason: Moderate Pain (pain scale 4-5) Last Admin: 07/25/18 19:47 Dose: 5 mg Potassium Chloride (K-Dur) 20 meq PO DAILY@0800 [facility] Last Admin: 07/27/18 09:20 Dose: 20 meq Pravastatin Sodium (Pravachol) 20 mg PO QHS [facility] Last Admin: 07/26/18 21:16 Dose: 20 mg Prednisone () 40 mg PO DAILY@0800 [facility] Last Admin: 07/27/18 09:17 Dose: 40 mg Promethazine HCl (Phenergan) 12.5 mg IM Q6H PRN PRN PRN Reason: NAUSEA/VOMITING Risperidone (Risperdal) 2 mg PO QHS [facility] Last Admin: 07/26/18 21:15 Dose: 2 mg Sodium Chloride () 5 - 30 ml IV UD PRN PRN Reason: SALINE FLUSH Last Admin: 07/27/18 09:19 Dose: 10 ml Sodium Chloride (Pabellones Nasal [place]) 1 spray NASAL TID PRN PRN PRN Reason: NASAL DRYNESS Last Admin: 07/26/18 17:04 Dose: 1 spray Venlafaxine HCl (Effexor Xr) 37.5 mg PO DAILY [facility] Last Admin: 07/27/18 09:17 Dose: 37.5 mg Medical Necessity - Tobacco Use Smoking Status: Former smoker Assessment/Plan All Active Problems Wheezing (Acute) FTT (failure to thrive) in adult (Resolved) copd (Acute) 1. Acute COPD exacerbation, presumed likely exacerbated by rhinovirus. continue prednisone and BDs follow up with pulmonology as outpt. 2. suspected pneumoccal pneumonia small infiltrate on CXR was on CTX and zmax start LVQ 3. Rhinovirus supportive mgmt 4. Acute respiratory insuffiency no recorded hypoxia currently on oxygen check an ambulatory pulse ox to see if patient qualified for it, if she does, she will not be able to return to assisted. 5. DM2, uncontrolled exacerbated by steroids. Lantus increased to 30 from 24 and stared on scheduled log (10 units) 6. DVT proph: LMWH. Code Visit Inpatient E&M: 14251 Subs Hosp L2
--- NOTE | 2018-07-27 10:00 | PN_ITS ---
Patient Problems: Active and Suspected Problems copd (Acute) Subjective: still SOB. non-productive cough. Vitals/I&O's: Vital Signs Temp Pulse Resp BP Pulse Ox 36.6 C 103 H 20 H 112/70 96 07/27/18 09:12 07/27/18 09:12 07/27/18 09:12 07/27/18 09:12 07/27/18 09:12 Oxygen Flow Rate (L/min) 3 Oxygen Delivery Method Nasal Cannula Weight: 88.81 kg Body Mass Index (BMI) 37.0 Intake and Output for Last 24 Hours 07/25/18 07/26/18 07/27/18 23:59 23:59 23:59 Intake Total 1750 / 1750 1250 / 1250 650 / 650 Output Total 1850 / 1850 250 / 250 800 / 800 Balance -100 / -100 1000 / 1000 -150 / -150 General: Alert, No apparent distress HEENT: Atraumatic, Normocephalic Oral: Moist Mucosa, No Gingival or Mucosal Lesions/ Ulcerations Neck: No Nuchal Rigidity, Thyroid Normal Size and Texture Lungs: Diminished, Wheezes - upper respiratory. Cardiovascular: Regular rate, Regular Rhythm, Normal S1, Normal S2, No murmurs Abdomen: Bowel Sounds Present, Soft, Non Tender, Non-Distended, No Hepato- splenomegaly Extremities: No edema, No Calf Tenderness Skin: No rashes, No breakdown Psych/Mental Status: Appropriate, Flat Affect Microbiology Past 72 Hours 07/25/18 14:07 Sputum, Expectorated/Coughed Gram Stain - Final 07/25/18 14:07 Sputum, Expectorated/Coughed Respiratory Culture - Preliminary Appears to be normal respiratory jenn. Further studies to follow. 07/22/18 14:10 Blood Culture (Wb) - Anticubital Right Blood Culture - Preliminary No growth in 48 hours. Laboratory Results 07/26/18 12:32: POC Glucose 401 H 07/26/18 16:46: POC Glucose 294 H 07/26/18 21:14: POC Glucose 220 H 07/27/18 05:45: Sodium 137, Potassium 3.4 L, Chloride 96 L, Carbon Dioxide 34.0 H, Anion Gap 7, BUN 16, Creatinine 0.60, Estim Creat Clear Calc 80.88, Est GFR (MDRD) Af Amer 133, Est GFR (MDRD) Non-Af 110, BUN/Creatinine Ratio 26.5 H, Glucose 143 H, Calcium 9.4 Current Medications Al Hydroxide/Mg Hydroxide (Mylanta Ii) 30 ml PO Q6H PRN PRN PRN Reason: Gastric burning Albuterol Sulfate (Ventolin Aerosols) 2.5 mg INHALATION Q2H PRN PRN PRN Reason: SHORTNESS OF BREATH Last Admin: 07/23/18 21:10 Dose: 2.5 mg Albuterol/Ipratropium (Duoneb) 3 ml INHALATION Q4H.RT [facility] Last Admin: 07/27/18 07:09 Dose: 3 ml Benzonatate (Tessalon Perle) 100 mg PO Q4H PRN PRN PRN Reason: COUGH Last Admin: 07/26/18 15:19 Dose: 100 mg Cholecalciferol (Vitamin D) 1,000 unit PO DAILYCM [facility] Last Admin: 07/27/18 09:17 Dose: 1,000 unit Clonazepam (Klonopin) 1 mg PO 1200 [facility] Last Admin: 07/26/18 12:35 Dose: 1 mg Clonazepam (Klonopin) 0.5 mg PO BREAKFAST [facility] Last Admin: 07/27/18 09:17 Dose: 0.5 mg Clonazepam (Klonopin) 1 mg PO QHS [facility] Last Admin: 07/26/18 21:16 Dose: 1 mg Clozapine (Clozaril) 100 mg PO LUNCH [facility] Last Admin: 07/26/18 12:35 Dose: 100 mg Clozapine (Clozaril) 200 mg PO DINNER [facility] Last Admin: 07/26/18 17:03 Dose: 200 mg Clozapine (Clozaril) 300 mg PO QHS [facility] Last Admin: 07/26/18 21:15 Dose: 300 mg Dextrose (D50w Syringe) 0 gm IV X1 PRN; Protocol PRN Reason: Hypoglycemia Docusate Sodium (Colace) 100 mg PO BID [facility] Last Admin: 07/27/18 09:17 Dose: 100 mg Enoxaparin Sodium (Lovenox) 40 mg SC DAILY@1000 [facility] Last Admin: 07/27/18 09:17 Dose: 40 mg Furosemide (Lasix) 40 mg PO BID@1000,1800 [facility] Last Admin: 07/27/18 09:17 Dose: 40 mg Glucagon () 1 mg IM .X1 PRN PRN Reason: Hypoglycemia Guaifenesin (Mucinex) 1,200 mg PO BID [facility] Last Admin: 07/26/18 21:15 Dose: 1,200 mg Ceftriaxone Sodium (Rocephin) 1 gm in 50 mls @ 100 mls/hr IV Q24H [facility] Last Admin: 07/27/18 09:20 Dose: 100 mls/hr Insulin Glargine (Lantus (Bkc)) 30 units SC BREAKFAST [facility] Last Admin: 07/27/18 09:18 Dose: 30 units Insulin Glargine (Lantus (Bkc)) 30 units SC QHS [facility] Last Admin: 07/26/18 21:16 Dose: 30 u Insulin Human Lispro (Humalog Kwikpen (Bkc)) 0 unit SQ ACHS [facility]; Protocol Last Admin: 07/27/18 08:55 Dose: Not Given Insulin Human Lispro (Humalog Kwikpen (Bkc)) 10 unit SC TIDAC [facility] Last Admin: 07/27/18 09:19 Dose: 10 units Lactulose (Chronulac, Cephulac) 20 gm PO BID [facility] Last Admin: 07/27/18 09:17 Dose: 20 gm Magnesium Hydroxide (Milk Of Magnesia) 30 ml PO DAILY PRN PRN PRN Reason: Constipation Oxycodone HCl (Oxyir) 5 mg PO Q4H PRN PRN PRN Reason: Moderate Pain (pain scale 4-5) Last Admin: 07/25/18 19:47 Dose: 5 mg Potassium Chloride (K-Dur) 20 meq PO DAILY@0800 [facility] Last Admin: 07/27/18 09:20 Dose: 20 meq Pravastatin Sodium (Pravachol) 20 mg PO QHS [facility] Last Admin: 07/26/18 21:16 Dose: 20 mg Prednisone () 40 mg PO DAILY@0800 [facility] Last Admin: 07/27/18 09:17 Dose: 40 mg Promethazine HCl (Phenergan) 12.5 mg IM Q6H PRN PRN PRN Reason: NAUSEA/VOMITING Risperidone (Risperdal) 2 mg PO QHS [facility] Last Admin: 07/26/18 21:15 Dose: 2 mg Sodium Chloride () 5 - 30 ml IV UD PRN PRN Reason: SALINE FLUSH Last Admin: 07/27/18 09:19 Dose: 10 ml Sodium Chloride ([place] Nasal Almond) 1 spray NASAL TID PRN PRN PRN Reason: NASAL DRYNESS Last Admin: 07/26/18 17:04 Dose: 1 spray Venlafaxine HCl (Effexor Xr) 37.5 mg PO DAILY [facility] Last Admin: 07/27/18 09:17 Dose: 37.5 mg Medical Necessity - Tobacco Use Smoking Status: Former smoker Assessment/Plan All Active Problems Wheezing (Acute) FTT (failure to thrive) in adult (Resolved) copd (Acute) 1. Acute COPD exacerbation, presumed * likely exacerbated by rhinovirus. * continue prednisone and BDs * follow up with pulmonology as outpt. 2. suspected pneumoccal pneumonia * small infiltrate on CXR * was on CTX and zmax * start LVQ 3. Rhinovirus * supportive mgmt 4. Acute respiratory insuffiency * no recorded hypoxia * currently on oxygen * check an ambulatory pulse ox to see if patient qualified for it, if she does, she will not be able to return to [facility]. 5. DM2, uncontrolled * exacerbated by steroids. * Lantus increased to 30 from 24 and stared on scheduled log (10 units) 6. DVT proph: LMWH. Code Visit Inpatient E&M: 25817 Subs Hosp L2
--- NOTE | 2018-07-27 10:10 | CASEMGMT ---
Social Work Note SW placed a call to referral line to see about bed availability for pt. JONNY spoke with [facility] in [facility] who states she won't have a bed till later in the week on [facility]. Per previous notes, pt's guardian listed [facility] as second choice in the event [facility] can't accept. JONNY placed a call to quality management and spoke with Vipin Robison to send referral to [facility]. Plan: [facility] pending acceptance and pre-cert Maddi Tony IT SERVICE TECHNICIAN, BUSINESS PROPOSAL REP
--- NOTE | 2018-07-27 10:38 | CASEMGMT ---
Call placed to Monik, admissions at [facility], informing her that referral will be faxed and if facility can accept, ok to start pre-cert. Monik will let [facility] know if they can accept patient. Referral faxed, confirmation rec'd. Zaira Robison LPN Clinical Support
[2018-07-27] MEDS: guaiFENesin 1,200 MG Tablet 1200 MG PO ×2 (11:26→21:40)
--- NOTE | 2018-07-27 12:42 | CASEMGMT ---
Rec'd call from Monik at [facility], they are able to accept patient and Monik will start pre-cert. Monik questioning when patient might be ready for D/C. Zaira Robison LPN Clinical Support
--- NOTE | 2018-07-27 12:54 | PCM.PROGNOTE ---
Patient Problems: Active and Suspected Problems copd (Acute) Subjective: Patient feels subjectively improved compared to previous. Patient still have some dyspnea on exertion with a productive cough. Patient denies any current chest pain. Patient did desaturate to 87% on room air. - Physical Exam General: Alert, Cooperative, No apparent distress, - - Obese HEENT: Atraumatic, PERRLA, EOMI, Normocephalic, - - No scleral icterus or injection noted. Oral: Moist Mucosa, No Gingival or Mucosal Lesions/ Ulcerations Neck: Supple, No JVD, No Nodes, Trachea Midline Lungs: No rhonchi, No rales, Diminished, Wheezes, - - Symmetric expansion. No dullness to percussion. Cardiovascular: Normal S1, Normal S2, No murmurs, No rub noted, No Gallop, Tachycardic Abdomen: Bowel Sounds Present, Soft, Non Tender, Non-Distended Extremities: No clubbing, No cyanosis, No edema, Capillary Refill Less than 3 Seconds Skin: No rashes, No breakdown Musculoskeletal: No Tenderness to Palpation of Joints or Extremities Lymphatic: No Cervical, Supraclavicular, or Inguinal Adenopathy Neurological: Cranial nerves II-XII grossly intact, Neuro grossly intact Psych/Mental Status: Appropriate, Flat Affect Vital Signs Temp Pulse Resp BP Pulse Ox 36.6 C 112 H 22 H 112/70 87 07/27/18 09:12 07/27/18 11:20 07/27/18 11:20 07/27/18 09:12 07/27/18 11:20 Oxygen Flow Rate (L/min) 3 Oxygen Delivery Method Room Air Weight: 88.81 kg Body Mass Index (BMI) 37.0 Intake and Output for Last 24 Hours 07/25/18 07/26/18 07/27/18 23:59 23:59 23:59 Intake Total 1750 / 1750 1250 / 1250 890 / 890 Output Total 1850 / 1850 250 / 250 1500 / 1500 Balance -100 / -100 1000 / 1000 -610 / -610 Microbiology Past 72 Hours 07/25/18 14:07 Gram Stain - Final Sputum, Expectorated/Coughed Respiratory Culture - Final 07/22/18 14:10 Blood Culture - Preliminary Blood Culture (Wb) - Anticubital Right No growth in 48 hours. Laboratory Tests Past 24 Hrs 07/27/18 05:45 Sodium 137 Potassium 3.4 L Chloride 96 L Carbon Dioxide 34.0 H Anion Gap 7 BUN 16 Creatinine 0.60 Estim Creat Clear Calc 80.88 Est GFR (MDRD) Af Amer 133 Est GFR (MDRD) Non-Af 110 BUN/Creatinine Ratio 26.5 H Glucose 143 H Calcium 9.4 POC Glucose 07/26/18 07/26/18 21:14 16:46 POC Glucose 220 H 294 H Medical Necessity - Tobacco Use Smoking Status: Former smoker Assessment/Plan All Active Problems Wheezing (Acute) FTT (failure to thrive) in adult (Resolved) copd (Acute) RECOMMENDATIONS: 1. Continue scheduled bronchodilators and steroids. 2. Consider disposition to ECF/SNF as patient may require prolonged (2-3 weeks) supplemental oxygen 3. Continue to wean supplemental oxygen. 4. Encourage incentive spirometer use and mobilize patient as tolerated. 5. Recommend outpatient PFTs and follow-up in the pulmonary medicine clinic upon discharge from the hospital. IMPRESSIONS: 1. Acute hypoxic respiratory insufficiency Unclear baseline respiratory function as patient is never had pulmonary function test previously. Patient has had a documented rhinovirus infection. Outpatient pulmonary function test will be needed for confirmation. Cannot exclude an extended recovery requiring supplemental oxygen. Unfortunately, patient's rhinovirus will not be treated by any medications and will take time to recover. Patient has had some tachycardia, but this is likely secondary to bronchodilators. We will continue steroids at the current dosing. Patient will need to keep saturations greater than 90% at all times. If discharged, patient can follow-up in our office in 2 weeks with nurse practitioner to arrange for testing. 2. Diabetes mellitus/obstructive sleep apnea/schizophrenia/obesity/hyperlipidemia Complicates care, management, recovery and prognosis. Likely okay to continue home medications as ordered. Code Visit Inpatient E&M: 54186 Subs Hosp L2
[2018-07-27] MEDS: clonazePAM 1 MG Tablet PO ×2 (12:59→21:02)
[2018-07-27 13:05] LABS: Bedside Glucose 463 mg/dL (70-110)
--- NOTE | 2018-07-27 13:31 | CASEMGMT ---
Social Work Note SW received message from Vipin Robison stating Monik at [facility] is able to accept pt and will submit for pre-cert and asked about discharge date for pt. JONNY placed a call to Monik at [facility] and informed her that pt should be ready for discharge as soon as pre-cert is obtained as pt was ready for discharge over the weekend but was unable to discharge due to needing oxygen at discharge. Monik states understanding. Plan: [facility] pending pre-cert Maddi Tony SUPERVISOR DIAGNOSTIC, WATCH CRYSTAL CUTTER
[2018-07-27 13:33] LABS: Glucose 450 mg/dL (74-106)
[2018-07-27] MEDS: Insulin Lispro 100 UNIT/ML INSULN.PEN SQ ×3 (13:38→21:03)
[2018-07-27] MEDS: levoFLOXacin 500 MG Tablet PO (15:00)
[2018-07-27 17:15] LABS: Bedside Glucose 304 mg/dL (70-110)
[2018-07-27] MEDS: RisperiDONE 2 MG Tablet PO (21:03)
[2018-07-27] MEDS: Pravastatin 20 MG Tablet PO (21:03)
[2018-07-27 21:05] LABS: Bedside Glucose 234 mg/dL (70-110)
[2018-07-28] VITALS (7 sets, daily range): BP systolic 113–132; BP diastolic 76–95; PULSE 100–116; RESP 18–24; TEMP 36.3–36.6; O2SAT 94–96
[2018-07-28] MEDS: Ipratropium/Albuterol Sulfate 3 ML AMPUL.NEB INHALATION ×4 (02:10→15:34)
[2018-07-28] MEDS: levoFLOXacin 500 MG Tablet PO (05:44)
[2018-07-28] MEDS: Insulin Lispro 100 UNIT/ML INSULN.PEN SQ ×3 (08:15→17:02)
[2018-07-28] MEDS: Insulin Lispro 100 UNIT/ML INSULN.PEN 10 UNIT SC ×3 (08:16→17:02)
[2018-07-28] MEDS: clonazePAM 0.5 MG Tablet PO (08:17)
[2018-07-28] MEDS: Enoxaparin 40 MG/0.4 ML Syringe SC (08:17)
[2018-07-28] MEDS: predniSONE 20 MG Tablet 40 MG PO (08:17)
[2018-07-28] MEDS: Venlafaxine XR 37.5 MG Capsule PO (08:17)
[2018-07-28] MEDS: guaiFENesin 1,200 MG Tablet 1200 MG PO ×2 (08:17→21:24)
[2018-07-28] MEDS: Docusate Sodium 100 MG Capsule PO (08:17)
[2018-07-28] MEDS: Furosemide 40 MG Tablet PO ×2 (08:17→17:49)
[2018-07-28 08:30] LABS: Bedside Glucose 152 mg/dL (70-110)
--- NOTE | 2018-07-28 08:40 | PCM.PN.HOSP ---
Patient Problems: Active and Suspected Problems COPD (chronic obstructive pulmonary disease) (Acute) Subjective: Breathing better. SaO2 dropped down to 87% on room air. Given the need for oxygen, patient cannot return to [facility], so has remained here to go to SNF instead. Vitals/I&O's: Vital Signs Temp Pulse Resp BP Pulse Ox 36.5 C L 108 H 20 H 113/76 94 07/28/18 08:10 07/28/18 08:10 07/28/18 08:10 07/28/18 08:10 07/28/18 08:10 Oxygen Flow Rate (L/min) 2 Oxygen Delivery Method Nasal Cannula Weight: 88.81 kg Body Mass Index (BMI) 37.0 Intake and Output for Last 24 Hours 07/26/18 07/27/18 07/28/18 23:59 23:59 23:59 Intake Total 1250 / 1250 1370 / 1370 520 / 520 Output Total 250 / 250 1900 / 1900 Balance 1000 / 1000 -530 / -530 520 / 520 General: Alert, No apparent distress HEENT: Atraumatic, Normocephalic Oral: Moist Mucosa, No Gingival or Mucosal Lesions/ Ulcerations Neck: No Nodes, Thyroid Normal Size and Texture Lungs: Normal air movement, Diminished, Wheezes Cardiovascular: Regular rate, Regular Rhythm, Normal S1, Normal S2, No murmurs Abdomen: Bowel Sounds Present, Soft, Non Tender, Non-Distended Extremities: No edema, No Calf Tenderness Skin: No rashes, No breakdown Musculoskeletal: No Tenderness to Palpation of Joints or Extremities, No Muscle Wasting Psych/Mental Status: Appropriate, Flat Affect Microbiology Past 72 Hours 07/22/18 14:10 Blood Culture (Wb) - Anticubital Right Blood Culture - Final No growth in 5 days. 07/25/18 14:07 Sputum, Expectorated/Coughed Gram Stain - Final 07/25/18 14:07 Sputum, Expectorated/Coughed Respiratory Culture - Final Laboratory Results 07/27/18 12:56: POC Glucose 463 H* 07/27/18 13:15: Glucose 450 H 07/27/18 16:57: POC Glucose 304 H 07/27/18 21:00: POC Glucose 234 H 07/28/18 08:05: POC Glucose 152 H Current Medications Al Hydroxide/Mg Hydroxide (Mylanta Ii) 30 ml PO Q6H PRN PRN PRN Reason: Gastric burning Albuterol Sulfate (Ventolin Aerosols) 2.5 mg INHALATION Q2H PRN PRN PRN Reason: SHORTNESS OF BREATH Last Admin: 07/23/18 21:10 Dose: 2.5 mg Albuterol/Ipratropium (Duoneb) 3 ml INHALATION Q4H.RT [facility] Last Admin: 07/28/18 07:11 Dose: 3 ml Benzonatate (Tessalon Perle) 100 mg PO Q4H PRN PRN PRN Reason: COUGH Last Admin: 07/26/18 15:19 Dose: 100 mg Cholecalciferol (Vitamin D) 1,000 unit PO DAILYCM [facility] Last Admin: 07/27/18 09:17 Dose: 1,000 unit Clonazepam (Klonopin) 1 mg PO 1200 [facility] Last Admin: 07/27/18 12:59 Dose: 1 mg Clonazepam (Klonopin) 0.5 mg PO BREAKFAST [facility] Last Admin: 07/28/18 08:17 Dose: 0.5 mg Clonazepam (Klonopin) 1 mg PO QHS [facility] Last Admin: 07/27/18 21:02 Dose: 1 mg Clozapine (Clozaril) 100 mg PO LUNCH [facility] Last Admin: 07/27/18 12:59 Dose: 100 mg Clozapine (Clozaril) 200 mg PO DINNER [facility] Last Admin: 07/27/18 17:10 Dose: 200 mg Clozapine (Clozaril) 300 mg PO QHS [facility] Last Admin: 07/27/18 21:02 Dose: 300 mg Dextrose (D50w Syringe) 0 gm IV X1 PRN; Protocol PRN Reason: Hypoglycemia Docusate Sodium (Colace) 100 mg PO BID [facility] Last Admin: 07/28/18 08:17 Dose: 100 mg Enoxaparin Sodium (Lovenox) 40 mg SC DAILY@1000 [facility] Last Admin: 07/28/18 08:17 Dose: 40 mg Furosemide (Lasix) 40 mg PO BID@1000,1800 [facility] Last Admin: 07/28/18 08:17 Dose: 40 mg Glucagon () 1 mg IM .X1 PRN PRN Reason: Hypoglycemia Guaifenesin (Mucinex) 1,200 mg PO BID [facility] Last Admin: 07/28/18 08:17 Dose: 1,200 mg Insulin Glargine (Lantus (Bkc)) 30 units SC BREAKFAST [facility] Last Admin: 07/28/18 08:18 Dose: 30 units Insulin Glargine (Lantus (Bkc)) 30 units SC QHS [facility] Last Admin: 07/27/18 21:04 Dose: 30 u Insulin Human Lispro (Humalog Kwikpen (Bkc)) 0 unit SQ ACHS [facility]; Protocol Last Admin: 07/28/18 08:15 Dose: 2 units Insulin Human Lispro (Humalog Kwikpen (Bkc)) 10 unit SC TIDAC [facility] Last Admin: 07/28/18 08:16 Dose: 10 units Lactulose (Chronulac, Cephulac) 20 gm PO BID [facility] Last Admin: 07/28/18 08:23 Dose: Not Given Levofloxacin (Levaquin Tablet) 500 mg PO DAILY@0600 [facility] Last Admin: 07/28/18 05:44 Dose: 500 mg Magnesium Hydroxide (Milk Of Magnesia) 30 ml PO DAILY PRN PRN PRN Reason: Constipation Oxycodone HCl (Oxyir) 5 mg PO Q4H PRN PRN PRN Reason: Moderate Pain (pain scale 4-5) Last Admin: 07/25/18 19:47 Dose: 5 mg Potassium Chloride (K-Dur) 20 meq PO DAILY@0800 [facility] Last Admin: 07/28/18 08:16 Dose: 20 meq Pravastatin Sodium (Pravachol) 20 mg PO QHS [facility] Last Admin: 07/27/18 21:03 Dose: 20 mg Prednisone () 40 mg PO DAILY@0800 [facility] Last Admin: 07/28/18 08:17 Dose: 40 mg Promethazine HCl (Phenergan) 12.5 mg IM Q6H PRN PRN PRN Reason: NAUSEA/VOMITING Risperidone (Risperdal) 2 mg PO QHS [facility] Last Admin: 07/27/18 21:03 Dose: 2 mg Risperidone (Risperdal Consta) 50 mg IM Q14D [facility] Last Admin: 07/27/18 15:44 Dose: 50 mg Sodium Chloride () 5 - 30 ml IV UD PRN PRN Reason: SALINE FLUSH Last Admin: 07/27/18 09:19 Dose: 10 ml Sodium Chloride ([place] Nasal [place]) 1 spray NASAL TID PRN PRN PRN Reason: NASAL DRYNESS Last Admin: 07/26/18 17:04 Dose: 1 spray Venlafaxine HCl (Effexor Xr) 37.5 mg PO DAILY [facility] Last Admin: 07/28/18 08:17 Dose: 37.5 mg Medical Necessity - Tobacco Use Smoking Status: Former smoker Assessment/Plan All Active Problems FTT (failure to thrive) in adult (Resolved) COPD (chronic obstructive pulmonary disease) (Acute) 1. Acute COPD exacerbation, presumed likely exacerbated by rhinovirus. continue prednisone and BDs follow up with pulmonology as outpt. 2. suspected pneumoccal pneumonia small infiltrate on CXR was on CTX and zmax start LVQ 3. Rhinovirus supportive mgmt 4. Acute respiratory failure, hypoxic 2/2 COPD exacerbation will need oxygen, at least temporarily Since requires oxygen, will need to go to SNF. May return to [facility] if no longer requires oxygen. 5. DM2, uncontrolled exacerbated by steroids. Lantus increased to 30 from 24 and stared on scheduled log (10 units) 6. DVT proph: LMWH. Code Visit Inpatient E&M: 19787 Subs Hosp L2
--- NOTE | 2018-07-28 08:46 | PN_ITS ---
Patient Problems: Active and Suspected Problems COPD (chronic obstructive pulmonary disease) (Acute) Subjective: Breathing better. SaO2 dropped down to 87% on room air. Given the need for oxygen, patient cannot return to [facility], so has remained here to go to SNF instead. Vitals/I&O's: Vital Signs Temp Pulse Resp BP Pulse Ox 36.5 C L 108 H 20 H 113/76 94 07/28/18 08:10 07/28/18 08:10 07/28/18 08:10 07/28/18 08:10 07/28/18 08:10 Oxygen Flow Rate (L/min) 2 Oxygen Delivery Method Nasal Cannula Weight: 88.81 kg Body Mass Index (BMI) 37.0 Intake and Output for Last 24 Hours 07/26/18 07/27/18 07/28/18 23:59 23:59 23:59 Intake Total 1250 / 1250 1370 / 1370 520 / 520 Output Total 250 / 250 1900 / 1900 Balance 1000 / 1000 -530 / -530 520 / 520 General: Alert, No apparent distress HEENT: Atraumatic, Normocephalic Oral: Moist Mucosa, No Gingival or Mucosal Lesions/ Ulcerations Neck: No Nodes, Thyroid Normal Size and Texture Lungs: Normal air movement, Diminished, Wheezes Cardiovascular: Regular rate, Regular Rhythm, Normal S1, Normal S2, No murmurs Abdomen: Bowel Sounds Present, Soft, Non Tender, Non-Distended Extremities: No edema, No Calf Tenderness Skin: No rashes, No breakdown Musculoskeletal: No Tenderness to Palpation of Joints or Extremities, No Muscle Wasting Psych/Mental Status: Appropriate, Flat Affect Microbiology Past 72 Hours 07/22/18 14:10 Blood Culture (Wb) - Anticubital Right Blood Culture - Final No growth in 5 days. 07/25/18 14:07 Sputum, Expectorated/Coughed Gram Stain - Final 07/25/18 14:07 Sputum, Expectorated/Coughed Respiratory Culture - Final Laboratory Results 07/27/18 12:56: POC Glucose 463 H* 07/27/18 13:15: Glucose 450 H 07/27/18 16:57: POC Glucose 304 H 07/27/18 21:00: POC Glucose 234 H 07/28/18 08:05: POC Glucose 152 H Current Medications Al Hydroxide/Mg Hydroxide (Mylanta Ii) 30 ml PO Q6H PRN PRN PRN Reason: Gastric burning Albuterol Sulfate (Ventolin Aerosols) 2.5 mg INHALATION Q2H PRN PRN PRN Reason: SHORTNESS OF BREATH Last Admin: 07/23/18 21:10 Dose: 2.5 mg Albuterol/Ipratropium (Duoneb) 3 ml INHALATION Q4H.RT [facility] Last Admin: 07/28/18 07:11 Dose: 3 ml Benzonatate (Tessalon Perle) 100 mg PO Q4H PRN PRN PRN Reason: COUGH Last Admin: 07/26/18 15:19 Dose: 100 mg Cholecalciferol (Vitamin D) 1,000 unit PO DAILYCM [facility] Last Admin: 07/27/18 09:17 Dose: 1,000 unit Clonazepam (Klonopin) 1 mg PO 1200 [facility] Last Admin: 07/27/18 12:59 Dose: 1 mg Clonazepam (Klonopin) 0.5 mg PO BREAKFAST [facility] Last Admin: 07/28/18 08:17 Dose: 0.5 mg Clonazepam (Klonopin) 1 mg PO QHS [facility] Last Admin: 07/27/18 21:02 Dose: 1 mg Clozapine (Clozaril) 100 mg PO LUNCH [facility] Last Admin: 07/27/18 12:59 Dose: 100 mg Clozapine (Clozaril) 200 mg PO DINNER [facility] Last Admin: 07/27/18 17:10 Dose: 200 mg Clozapine (Clozaril) 300 mg PO QHS [facility] Last Admin: 07/27/18 21:02 Dose: 300 mg Dextrose (D50w Syringe) 0 gm IV X1 PRN; Protocol PRN Reason: Hypoglycemia Docusate Sodium (Colace) 100 mg PO BID [facility] Last Admin: 07/28/18 08:17 Dose: 100 mg Enoxaparin Sodium (Lovenox) 40 mg SC DAILY@1000 [facility] Last Admin: 07/28/18 08:17 Dose: 40 mg Furosemide (Lasix) 40 mg PO BID@1000,1800 [facility] Last Admin: 07/28/18 08:17 Dose: 40 mg Glucagon () 1 mg IM .X1 PRN PRN Reason: Hypoglycemia Guaifenesin (Mucinex) 1,200 mg PO BID [facility] Last Admin: 07/28/18 08:17 Dose: 1,200 mg Insulin Glargine (Lantus (Bkc)) 30 units SC BREAKFAST [facility] Last Admin: 07/28/18 08:18 Dose: 30 units Insulin Glargine (Lantus (Bkc)) 30 units SC QHS [facility] Last Admin: 07/27/18 21:04 Dose: 30 u Insulin Human Lispro (Humalog Kwikpen (Bkc)) 0 unit SQ ACHS [facility]; Protocol Last Admin: 07/28/18 08:15 Dose: 2 units Insulin Human Lispro (Humalog Kwikpen (Bkc)) 10 unit SC TIDAC [facility] Last Admin: 07/28/18 08:16 Dose: 10 units Lactulose (Chronulac, Cephulac) 20 gm PO BID [facility] Last Admin: 07/28/18 08:23 Dose: Not Given Levofloxacin (Levaquin Tablet) 500 mg PO DAILY@0600 [facility] Last Admin: 07/28/18 05:44 Dose: 500 mg Magnesium Hydroxide (Milk Of Magnesia) 30 ml PO DAILY PRN PRN PRN Reason: Constipation Oxycodone HCl (Oxyir) 5 mg PO Q4H PRN PRN PRN Reason: Moderate Pain (pain scale 4-5) Last Admin: 07/25/18 19:47 Dose: 5 mg Potassium Chloride (K-Dur) 20 meq PO DAILY@0800 [facility] Last Admin: 07/28/18 08:16 Dose: 20 meq Pravastatin Sodium (Pravachol) 20 mg PO QHS [facility] Last Admin: 07/27/18 21:03 Dose: 20 mg Prednisone () 40 mg PO DAILY@0800 [facility] Last Admin: 07/28/18 08:17 Dose: 40 mg Promethazine HCl (Phenergan) 12.5 mg IM Q6H PRN PRN PRN Reason: NAUSEA/VOMITING Risperidone (Risperdal) 2 mg PO QHS [facility] Last Admin: 07/27/18 21:03 Dose: 2 mg Risperidone (Risperdal Consta) 50 mg IM Q14D [facility] Last Admin: 07/27/18 15:44 Dose: 50 mg Sodium Chloride () 5 - 30 ml IV UD PRN PRN Reason: SALINE FLUSH Last Admin: 07/27/18 09:19 Dose: 10 ml Sodium Chloride ([place] Nasal [place]) 1 spray NASAL TID PRN PRN PRN Reason: NASAL DRYNESS Last Admin: 07/26/18 17:04 Dose: 1 spray Venlafaxine HCl (Effexor Xr) 37.5 mg PO DAILY [facility] Last Admin: 07/28/18 08:17 Dose: 37.5 mg Medical Necessity - Tobacco Use Smoking Status: Former smoker Assessment/Plan All Active Problems FTT (failure to thrive) in adult (Resolved) COPD (chronic obstructive pulmonary disease) (Acute) 1. Acute COPD exacerbation, presumed * likely exacerbated by rhinovirus. * continue prednisone and BDs * follow up with pulmonology as outpt. 2. suspected pneumoccal pneumonia * small infiltrate on CXR * was on CTX and zmax * start LVQ 3. Rhinovirus * supportive mgmt 4. Acute respiratory failure, hypoxic * 2/2 COPD exacerbation * will need oxygen, at least temporarily * Since requires oxygen, will need to go to SNF. May return to [facility] if no longer requires oxygen. 5. DM2, uncontrolled * exacerbated by steroids. * Lantus increased to 30 from 24 and stared on scheduled log (10 units) 6. DVT proph: LMWH. Code Visit Inpatient E&M: 60126 Subs Hosp L2
--- NOTE | 2018-07-28 09:20 | CASEMGMT ---
Social Work Note SW faxed updated clinicals to Monik at [facility]. JONNY placed a call to pt's guardian Melony and left her a message updating her that pt is still requiring oxygen so pt will need placed at SNF. JONNY informed Melony that [facility] so a referral was sent to Melony's second choice of [facility]. JONNY explained that [facility] has accepted pt and that pre-cert will need to be obtained. SW provide direct number for Melony. Plan: [facility] pending pre-cert Maddi Tony [employer], MANAGER MAINTENANCE
--- NOTE | 2018-07-28 10:42 | PN_ITS ---
Patient Problems: Active and Suspected Problems COPD (chronic obstructive pulmonary disease) (Acute) Subjective: Patient did well overnight. Patient's discharge was delayed secondary to the need for an ECF for supplemental oxygen. Patient reports no subjective change compared to previous. Still with an intermittent productive cough. No chest pain or hemoptysis is been reported. - Physical Exam General: Alert, Cooperative, No apparent distress, - - No conversational dyspnea noted. Obese. HEENT: Atraumatic, PERRLA, EOMI, Normocephalic, - - No scleral icterus or injection noted. Oral: Moist Mucosa, No Gingival or Mucosal Lesions/ Ulcerations Neck: Supple, No JVD, No Nodes, Trachea Midline Lungs: No rhonchi, No rales, Diminished, Wheezes, - - Symmetric expansion. No dullness to percussion. Cardiovascular: Normal S1, Normal S2, No murmurs, No rub noted, No Gallop, Tachycardic Abdomen: Bowel Sounds Present, Soft, Non Tender, Non-Distended, Obese Extremities: No clubbing, No cyanosis, No edema, Capillary Refill Less than 3 Seconds Skin: No rashes, No breakdown Musculoskeletal: No Tenderness to Palpation of Joints or Extremities Lymphatic: No Cervical, Supraclavicular, or Inguinal Adenopathy Neurological: Cranial nerves II-XII grossly intact, Neuro grossly intact Psych/Mental Status: Appropriate, Flat Affect Vital Signs Temp Pulse Resp BP Pulse Ox 36.5 C L 108 H 20 H 113/76 94 07/28/18 08:10 07/28/18 08:10 07/28/18 08:10 07/28/18 08:10 07/28/18 08:10 Oxygen Flow Rate (L/min) 2 Oxygen Delivery Method Nasal Cannula Weight: 88.81 kg Body Mass Index (BMI) 37.0 Intake and Output for Last 24 Hours 07/26/18 07/27/18 07/28/18 23:59 23:59 23:59 Intake Total 1250 / 1250 1370 / 1370 520 / 520 Output Total 250 / 250 1900 / 1900 Balance 1000 / 1000 -530 / -530 520 / 520 Microbiology Past 72 Hours 07/22/18 14:10 Blood Culture - Final Blood Culture (Wb) - Anticubital Right No growth in 5 days. 07/25/18 14:07 Gram Stain - Final Sputum, Expectorated/Coughed Respiratory Culture - Final Laboratory Tests Past 24 Hrs 07/27/18 13:15 Glucose 450 H POC Glucose 07/28/18 07/27/18 07/27/18 08:05 21:00 16:57 POC Glucose 152 H 234 H 304 H 07/27/18 12:56 POC Glucose 463 H* Medical Necessity - Tobacco Use Smoking Status: Former smoker Assessment/Plan All Active Problems FTT (failure to thrive) in adult (Resolved) COPD (chronic obstructive pulmonary disease) (Acute) RECOMMENDATIONS: 1. Continue scheduled bronchodilators. Wean steroids over the next 12-14 days 2. Consider disposition to ECF/SNF as patient may require prolonged (2-3 weeks) supplemental oxygen 3. Continue to wean supplemental oxygen. 4. Encourage incentive spirometer use and mobilize patient as tolerated. 5. Recommend outpatient PFTs and follow-up in the pulmonary medicine clinic upon discharge from the hospital. IMPRESSIONS: 1. Acute hypoxic respiratory insufficiency Unclear baseline respiratory function as patient is never had pulmonary function test previously. Patient has had a documented rhinovirus infection. Outpatient pulmonary function test will be needed for confirmation of obstructive lung disease. Cannot exclude an extended recovery requiring supplemental oxygen. Unfortunately, patient's rhinovirus will not be treated by any medications and will take time to recover. Patient has had some tachycardia, but this is likely secondary to bronchodilators. Steroids can be weaned over the next 12-14 days. Patient will need to keep saturations greater than 90% at all times. If discharged, patient can follow-up in our office in 2 weeks with nurse practitioner to arrange for testing. 2. Diabetes mellitus/obstructive sleep apnea/schizophrenia/obesity/hyperlipidemia Complicates care, management, recovery and prognosis. Likely okay to cont inue home medications as ordered. Code Visit Inpatient E&M: 01904 Subs Hosp L2
--- NOTE | 2018-07-28 11:17 | CASEMGMT ---
Rec'd call from Monik at [facility]. Insurance is requesting therapy notes from today as part of pre-cert process. Call placed to as it does not appear therapy has seen patient today. Zaira Robison LPN Clinical Support
[2018-07-28] MEDS: clonazePAM 1 MG Tablet PO ×2 (11:46→21:25)
[2018-07-28 12:20] LABS: Bedside Glucose 291 mg/dL (70-110)
--- NOTE | 2018-07-28 14:07 | CASEMGMT ---
Social Work Note SW faxed updated clinicals to Monik at [facility]. Plan: [facility] pending pre-cert Maddi Tony FLUMER, LINOLEUM PRINTER
[2018-07-28 17:50] LABS: Bedside Glucose 211 mg/dL (70-110)
[2018-07-28] MEDS: RisperiDONE 2 MG Tablet PO (21:25)
[2018-07-28] MEDS: Pravastatin 20 MG Tablet PO (21:25)
[2018-07-28 21:36] LABS: Bedside Glucose 148 mg/dL (70-110)
[2018-07-29] VITALS (7 sets, daily range): BP systolic 115–135; BP diastolic 75–79; PULSE 99–118; RESP 18–22; TEMP 36.4–36.7; O2SAT 93–98
[2018-07-29] MEDS: levoFLOXacin 500 MG Tablet PO (05:23)
[2018-07-29] MEDS: 0.9% NaCl Peripheral Flush Adult/Peds IV (05:23)
[2018-07-29] MEDS: Ipratropium/Albuterol Sulfate 3 ML AMPUL.NEB INHALATION ×2 (06:33→10:17)
[2018-07-29 08:22] LABS: Anion Gap 7 (5-15); BUN 17 mg/dL (7-18); BUN/Creat Ratio 23.7 RATIO (10-20); Calcium,Total 9.3 mg/dL (8.5-10.1); Chloride 98 mmol/L (98-107); Creatinine, Serum 0.72 mg/dL (0.55-1.02); EST Glomerular Filtration Rate 90 mL/min (>60); Est Glom Filt Rate - Afr Amer 109 mL/min (>60); Glucose 133 mg/dL (74-106); Potassium 3.5 mmol/L (3.5-5.1); Sodium Level 136 mmol/L (136-145)
[2018-07-29] MEDS: Insulin Lispro 100 UNIT/ML INSULN.PEN SQ ×2 (09:07→11:57)
[2018-07-29] MEDS: Insulin Lispro 100 UNIT/ML INSULN.PEN 10 UNIT SC ×2 (09:08→11:57)
[2018-07-29] MEDS: clonazePAM 0.5 MG Tablet PO (09:09)
[2018-07-29] MEDS: predniSONE 20 MG Tablet 40 MG PO (09:09)
--- NOTE | 2018-07-29 09:28 | PCM.PN.HOSP ---
Patient Problems: Active and Suspected Problems COPD (chronic obstructive pulmonary disease) (Acute) Vitals/I&O's: Vital Signs Temp Pulse Resp BP Pulse Ox 36.7 C 99 20 H 135/79 H 95 07/29/18 02:45 07/29/18 06:33 07/29/18 06:33 07/29/18 02:45 07/29/18 06:33 Oxygen Flow Rate (L/min) 2 Oxygen Delivery Method Nasal Cannula Weight: 88.81 kg Body Mass Index (BMI) 37.0 Intake and Output for Last 24 Hours 07/27/18 07/28/18 07/29/18 23:59 23:59 23:59 Intake Total 1370 / 1370 520 / 520 Output Total 1900 / 1900 900 / 900 Balance -530 / -530 -380 / -380 General: Alert, No apparent distress HEENT: Atraumatic, Normocephalic Oral: Moist Mucosa, No Gingival or Mucosal Lesions/ Ulcerations Neck: No Nodes, Thyroid Normal Size and Texture Lungs: Normal air movement, No rhonchi, No wheeze, - - coarse BS bilaterally. Cardiovascular: Regular rate, Regular Rhythm, Normal S1, Normal S2, No murmurs Abdomen: Bowel Sounds Present, Soft, Non Tender, Non-Distended, No Hepato-splenomegaly Extremities: No edema, No Calf Tenderness Skin: No rashes, No breakdown Psych/Mental Status: Appropriate, Flat Affect Microbiology Past 72 Hours 07/22/18 14:10 Blood Culture (Wb) - Anticubital Right Blood Culture - Final No growth in 5 days. 07/25/18 14:07 Sputum, Expectorated/Coughed Gram Stain - Final 07/25/18 14:07 Sputum, Expectorated/Coughed Respiratory Culture - Final Laboratory Results 07/28/18 11:44: POC Glucose 291 H 07/28/18 16:59: POC Glucose 211 H 07/28/18 21:22: POC Glucose 148 H 07/29/18 07:40: Sodium 136, Potassium 3.5, Chloride 98, Carbon Dioxide 31.0, Anion Gap 7, BUN 17, Creatinine 0.72, Estim Creat Clear Calc 67.40, Est GFR (MDRD) Af Amer 109, Est GFR (MDRD) Non-Af 90, BUN/Creatinine Ratio 23.7 H, Glucose 133 H, Calcium 9.3 Current Medications Al Hydroxide/Mg Hydroxide (Mylanta Ii) 30 ml PO Q6H PRN PRN PRN Reason: Gastric burning Albuterol Sulfate (Ventolin Aerosols) 2.5 mg INHALATION Q2H PRN PRN PRN Reason: SHORTNESS OF BREATH Last Admin: 07/23/18 21:10 Dose: 2.5 mg Albuterol/Ipratropium (Duoneb) 3 ml INHALATION Q4H.RT [facility] Last Admin: 07/29/18 06:33 Dose: 3 ml Benzonatate (Tessalon Perle) 100 mg PO Q4H PRN PRN PRN Reason: COUGH Last Admin: 07/26/18 15:19 Dose: 100 mg Cholecalciferol (Vitamin D) 1,000 unit PO DAILYCM [facility] Last Admin: 07/29/18 09:09 Dose: 1,000 unit Clonazepam (Klonopin) 1 mg PO 1200 [facility] Last Admin: 07/28/18 11:46 Dose: 1 mg Clonazepam (Klonopin) 0.5 mg PO BREAKFAST [facility] Last Admin: 07/29/18 09:09 Dose: 0.5 mg Clonazepam (Klonopin) 1 mg PO QHS [facility] Last Admin: 07/28/18 21:25 Dose: 1 mg Clozapine (Clozaril) 100 mg PO LUNCH [facility] Last Admin: 07/28/18 11:46 Dose: 100 mg Clozapine (Clozaril) 200 mg PO DINNER [facility] Last Admin: 07/28/18 17:07 Dose: 200 mg Clozapine (Clozaril) 300 mg PO QHS [facility] Last Admin: 07/28/18 21:24 Dose: 300 mg Dextrose (D50w Syringe) 0 gm IV X1 PRN; Protocol PRN Reason: Hypoglycemia Docusate Sodium (Colace) 100 mg PO BID [facility] Last Admin: 07/28/18 21:02 Dose: Not Given Enoxaparin Sodium (Lovenox) 40 mg SC DAILY@1000 [facility] Last Admin: 07/28/18 08:17 Dose: 40 mg Furosemide (Lasix) 40 mg PO BID@1000,1800 [facility] Last Admin: 07/28/18 17:49 Dose: 40 mg Glucagon () 1 mg IM .X1 PRN PRN Reason: Hypoglycemia Guaifenesin (Mucinex) 1,200 mg PO BID [facility] Last Admin: 07/28/18 21:24 Dose: 1,200 mg Insulin Glargine (Lantus (Bkc)) 30 units SC BREAKFAST [facility] Last Admin: 07/29/18 09:09 Dose: 30 units Insulin Glargine (Lantus (Bkc)) 30 units SC QHS [facility] Last Admin: 07/28/18 21:24 Dose: 30 u Insulin Human Lispro (Humalog Kwikpen (Bkc)) 0 unit SQ ACHS [facility]; Protocol Last Admin: 07/29/18 09:07 Dose: 2 units Insulin Human Lispro (Humalog Kwikpen (Bkc)) 10 unit SC TIDAC [facility] Last Admin: 07/29/18 09:08 Dose: 10 units Lactulose (Chronulac, Cephulac) 20 gm PO BID [facility] Last Admin: 07/28/18 21:02 Dose: Not Given Levofloxacin (Levaquin Tablet) 500 mg PO DAILY@0600 [facility] Last Admin: 07/29/18 05:23 Dose: 500 mg Magnesium Hydroxide (Milk Of Magnesia) 30 ml PO DAILY PRN PRN PRN Reason: Constipation Oxycodone HCl (Oxyir) 5 mg PO Q4H PRN PRN PRN Reason: Moderate Pain (pain scale 4-5) Last Admin: 07/25/18 19:47 Dose: 5 mg Potassium Chloride (K-Dur) 20 meq PO DAILY@0800 [facility] Last Admin: 07/29/18 09:08 Dose: 20 meq Pravastatin Sodium (Pravachol) 20 mg PO QHS [facility] Last Admin: 07/28/18 21:25 Dose: 20 mg Prednisone () 40 mg PO DAILY@0800 [facility] Last Admin: 07/29/18 09:09 Dose: 40 mg Promethazine HCl (Phenergan) 12.5 mg IM Q6H PRN PRN PRN Reason: NAUSEA/VOMITING Risperidone (Risperdal) 2 mg PO QHS [facility] Last Admin: 07/28/18 21:25 Dose: 2 mg Risperidone (Risperdal Consta) 50 mg IM Q14D [facility] Last Admin: 07/27/18 15:44 Dose: 50 mg Sodium Chloride () 5 - 30 ml IV UD PRN PRN Reason: SALINE FLUSH Last Admin: 07/29/18 05:23 Dose: 10 ml Sodium Chloride ([place] Nasal [place]) 1 spray NASAL TID PRN PRN PRN Reason: NASAL DRYNESS Last Admin: 07/26/18 17:04 Dose: 1 spray Venlafaxine HCl (Effexor Xr) 37.5 mg PO DAILY JAQU[facility] Last Admin: 07/28/18 08:17 Dose: 37.5 mg Medical Necessity - Tobacco Use Smoking Status: Former smoker Assessment/Plan All Active Problems FTT (failure to thrive) in adult (Resolved) COPD (chronic obstructive pulmonary disease) (Acute) 1. Acute COPD exacerbation, presumed likely exacerbated by rhinovirus. continue prednisone and BDs follow up with pulmonology as outpt. Completed 6 days of prednisone 40--will DC. 2. suspected pneumoccal pneumonia small infiltrate on CXR was on CTX and zmax start LVQ through today, then stop 3. Rhinovirus supportive mgmt 4. Acute respiratory failure, hypoxic 2/2 COPD exacerbation will need oxygen, at least temporarily Since requires oxygen, will need to go to SNF. May return to skilled nursing if no longer requires oxygen. 5. DM2, uncontrolled exacerbated by steroids. Lantus increased to 30 from 24 and stared on scheduled log (10 units) 6. DVT proph: LMWH. 7.Disposition: Patient unable to return to her skilled nursing as she is requiring oxygen, though the patient states that she had oxygen at her skilled nursing. Plan is for the patient to go to a [facility] facility until she can come off of oxygen. Still awaiting on precertification. Once that is obtained then patient can be discharged to a [facility] facility. Code Visit Inpatient E&M: 97764 Subs Hosp L2
--- NOTE | 2018-07-29 09:33 | PN_ITS ---
Patient Problems: Active and Suspected Problems COPD (chronic obstructive pulmonary disease) (Acute) Vitals/I&O's: Vital Signs Temp Pulse Resp BP Pulse Ox 36.7 C 99 20 H 135/79 H 95 07/29/18 02:45 07/29/18 06:33 07/29/18 06:33 07/29/18 02:45 07/29/18 06:33 Oxygen Flow Rate (L/min) 2 Oxygen Delivery Method Nasal Cannula Weight: 88.81 kg Body Mass Index (BMI) 37.0 Intake and Output for Last 24 Hours 07/27/18 07/28/18 07/29/18 23:59 23:59 23:59 Intake Total 1370 / 1370 520 / 520 Output Total 1900 / 1900 900 / 900 Balance -530 / -530 -380 / -380 General: Alert, No apparent distress HEENT: Atraumatic, Normocephalic Oral: Moist Mucosa, No Gingival or Mucosal Lesions/ Ulcerations Neck: No Nodes, Thyroid Normal Size and Texture Lungs: Normal air movement, No rhonchi, No wheeze, - - coarse BS bilaterally. Cardiovascular: Regular rate, Regular Rhythm, Normal S1, Normal S2, No murmurs Abdomen: Bowel Sounds Present, Soft, Non Tender, Non-Distended, No Hepato- splenomegaly Extremities: No edema, No Calf Tenderness Skin: No rashes, No breakdown Psych/Mental Status: Appropriate, Flat Affect Microbiology Past 72 Hours 07/22/18 14:10 Blood Culture (Wb) - Anticubital Right Blood Culture - Final No growth in 5 days. 07/25/18 14:07 Sputum, Expectorated/Coughed Gram Stain - Final 07/25/18 14:07 Sputum, Expectorated/Coughed Respiratory Culture - Final Laboratory Results 07/28/18 11:44: POC Glucose 291 H 07/28/18 16:59: POC Glucose 211 H 07/28/18 21:22: POC Glucose 148 H 07/29/18 07:40: Sodium 136, Potassium 3.5, Chloride 98, Carbon Dioxide 31.0, Anion Gap 7, BUN 17, Creatinine 0.72, Estim Creat Clear Calc 67.40, Est GFR (MDRD) Af Amer 109, Est GFR (MDRD) Non-Af 90, BUN/Creatinine Ratio 23.7 H, Glucose 133 H, Calcium 9.3 Current Medications Al Hydroxide/Mg Hydroxide (Mylanta Ii) 30 ml PO Q6H PRN PRN PRN Reason: Gastric burning Albuterol Sulfate (Ventolin Aerosols) 2.5 mg INHALATION Q2H PRN PRN PRN Reason: SHORTNESS OF BREATH Last Admin: 07/23/18 21:10 Dose: 2.5 mg Albuterol/Ipratropium (Duoneb) 3 ml INHALATION Q4H.[facility] Last Admin: 07/29/18 06:33 Dose: 3 ml Benzonatate (Tessalon Perle) 100 mg PO Q4H PRN PRN PRN Reason: COUGH Last Admin: 07/26/18 15:19 Dose: 100 mg Cholecalciferol (Vitamin D) 1,000 unit PO DAILYCM [facility] Last Admin: 07/29/18 09:09 Dose: 1,000 unit Clonazepam (Klonopin) 1 mg PO 1200 [facility] Last Admin: 07/28/18 11:46 Dose: 1 mg Clonazepam (Klonopin) 0.5 mg PO BREAKFAST [facility] Last Admin: 07/29/18 09:09 Dose: 0.5 mg Clonazepam (Klonopin) 1 mg PO QHS [facility] Last Admin: 07/28/18 21:25 Dose: 1 mg Clozapine (Clozaril) 100 mg PO LUNCH [facility] Last Admin: 07/28/18 11:46 Dose: 100 mg Clozapine (Clozaril) 200 mg PO DINNER [facility] Last Admin: 07/28/18 17:07 Dose: 200 mg Clozapine (Clozaril) 300 mg PO QHS [facility] Last Admin: 07/28/18 21:24 Dose: 300 mg Dextrose (D50w Syringe) 0 gm IV X1 PRN; Protocol PRN Reason: Hypoglycemia Docusate Sodium (Colace) 100 mg PO BID [facility] Last Admin: 07/28/18 21:02 Dose: Not Given Enoxaparin Sodium (Lovenox) 40 mg SC DAILY@1000 [facility] Last Admin: 07/28/18 08:17 Dose: 40 mg Furosemide (Lasix) 40 mg PO BID@1000,1800 [facility] Last Admin: 07/28/18 17:49 Dose: 40 mg Glucagon () 1 mg IM .X1 PRN PRN Reason: Hypoglycemia Guaifenesin (Mucinex) 1,200 mg PO BID [facility] Last Admin: 07/28/18 21:24 Dose: 1,200 mg Insulin Glargine (Lantus (Bkc)) 30 units SC BREAKFAST [facility] Last Admin: 07/29/18 09:09 Dose: 30 units Insulin Glargine (Lantus (Bkc)) 30 units SC QHS [facility] Last Admin: 07/28/18 21:24 Dose: 30 u Insulin Human Lispro (Humalog Kwikpen (Bkc)) 0 unit SQ ACHS [facility]; Protocol Last Admin: 07/29/18 09:07 Dose: 2 units Insulin Human Lispro (Humalog Kwikpen (Bkc)) 10 unit SC TIDAC [facility] Last Admin: 07/29/18 09:08 Dose: 10 units Lactulose (Chronulac, Cephulac) 20 gm PO BID [facility] Last Admin: 07/28/18 21:02 Dose: Not Given Levofloxacin (Levaquin Tablet) 500 mg PO DAILY@0600 [facility] Last Admin: 07/29/18 05:23 Dose: 500 mg Magnesium Hydroxide (Milk Of Magnesia) 30 ml PO DAILY PRN PRN PRN Reason: Constipation Oxycodone HCl (Oxyir) 5 mg PO Q4H PRN PRN PRN Reason: Moderate Pain (pain scale 4-5) Last Admin: 07/25/18 19:47 Dose: 5 mg Potassium Chloride (K-Dur) 20 meq PO DAILY@0800 [facility] Last Admin: 07/29/18 09:08 Dose: 20 meq Pravastatin Sodium (Pravachol) 20 mg PO QHS [facility] Last Admin: 07/28/18 21:25 Dose: 20 mg Prednisone () 40 mg PO DAILY@0800 [facility] Last Admin: 07/29/18 09:09 Dose: 40 mg Promethazine HCl (Phenergan) 12.5 mg IM Q6H PRN PRN PRN Reason: NAUSEA/VOMITING Risperidone (Risperdal) 2 mg PO QHS [facility] Last Admin: 07/28/18 21:25 Dose: 2 mg Risperidone (Risperdal Consta) 50 mg IM Q14D [facility] Last Admin: 07/27/18 15:44 Dose: 50 mg Sodium Chloride () 5 - 30 ml IV UD PRN PRN Reason: SALINE FLUSH Last Admin: 07/29/18 05:23 Dose: 10 ml Sodium Chloride ([place] Nasal [place]) 1 spray NASAL TID PRN PRN PRN Reason: NASAL DRYNESS Last Admin: 07/26/18 17:04 Dose: 1 spray Venlafaxine HCl (Effexor Xr) 37.5 mg PO DAILY JAQUI Last Admin: 07/28/18 08:17 Dose: 37.5 mg Medical Necessity - Tobacco Use Smoking Status: Former smoker Assessment/Plan All Active Problems FTT (failure to thrive) in adult (Resolved) COPD (chronic obstructive pulmonary disease) (Acute) 1. Acute COPD exacerbation, presumed * likely exacerbated by rhinovirus. * continue prednisone and BDs * follow up with pulmonology as outpt. * Completed 6 days of prednisone 40--will DC. 2. suspected pneumoccal pneumonia * small infiltrate on CXR * was on CTX and zmax * start LVQ through today, then stop 3. Rhinovirus * supportive mgmt 4. Acute respiratory failure, hypoxic * 2/2 COPD exacerbation * will need oxygen, at least temporarily * Since requires oxygen, will need to go to SNF. May return to prison if no longer requires oxygen. 5. DM2, uncontrolled * exacerbated by steroids. * Lantus increased to 30 from 24 and stared on scheduled log (10 units) 6. DVT proph: LMWH. 7.Disposition: * Patient unable to return to her prison as she is requiring oxygen, though the patient states that she had oxygen at her prison. Plan is for the patient to go to a [facility] facility until she can come off of oxygen. * Still awaiting on precertification. Once that is obtained then patient can be discharged to a [facility] facility. Code Visit Inpatient E&M: 42078 Subs Hosp L2
[2018-07-29 09:50] LABS: Bedside Glucose 154 mg/dL (70-110)
[2018-07-29] MEDS: Enoxaparin 40 MG/0.4 ML Syringe SC (10:44)
[2018-07-29] MEDS: Docusate Sodium 100 MG Capsule PO (10:45)
[2018-07-29] MEDS: Furosemide 40 MG Tablet PO (10:45)
[2018-07-29] MEDS: Venlafaxine XR 37.5 MG Capsule PO (10:45)
[2018-07-29] MEDS: oxyCODONE 5 MG Tablet PO (10:45)
[2018-07-29] MEDS: guaiFENesin 1,200 MG Tablet 1200 MG PO (10:45)
--- NOTE | 2018-07-29 11:34 | CASEMGMT ---
Addendum entered by Rosa Chowdhury 07/29/18 12:38: RN was able to walk w/pt up a flight of steps, pt managed the steps fine. JONNY called Leola at [facility], let her know pt got up and down the steps fine, and so should be able to return to the retirement today. Leola will call the retirement and someone will be out this afternoon to shrimp picker pt. JONNY called pt's guardian, Melony Willard, message let her know pt can return to the retirement today, explained she if off the oxygen and was able to get up and down the steps with no issue, Ms. Willard in agreement w/pt returning to the retirement. SW texted the physician that pt was able to get up and down the steps so can return to the retirement today. JONNY also called Monik at [facility] and let her know that pt will return to the retirement. No further needs are anticipated, pt to long term today. DONNIE Meyer-Loren, TABLE WORKER Original Note: JONNY spoke eulogio/Cherelle in , she states that as per Monik at [facility] the pt's case may need to go to medical review, as pt is walking well with PT. JONNY spoke eulogio/Leola Jaime, pt's lining caser at the retirement, she assisted SW in completing PAS/RR in event SWN requests this go to shelter under level of care w/pt's Medicaid. JONNY spoke w/RN, she did a walking test, pt now does not need oxygen now. Therefors, pt may be able to return to the retirement. JONNY called the retirement, spoke w/Shereen, she states it is up to the lining caser, Leola Jaime. She also states that pt will need to get up a flight of steps. JONNY asked battery charger conveyor line if we can test pt on steps since she is on droplet precautions, she is checking w/ID. JONNY also called Leola again at [facility], she states it's not up to her if the pt can return to the retirement, but is in agreement w/pt going back to the retirement. She asked if it could be later in the day. JONNY explained it can be, did mention also that the retirement had mentioned steps, JONNY does not know if pt can be tested on steps or not since she is on droplet precautions here. Leola states that if she cannot do steps then they would just send her back to the ER. JONNY will let Leola know as as soon as this SW knows if pt can practice on the steps. JONNY spoke w/Monik at [facility], she states the pt's case did go to medical review. JONNY explained pt is off of O2 however and may not need to come at all. Monik will let this SW know once she hears from [facility]. Also, if pt still did need to come and [facility] denies, she is okay w/JONNY completing a convalescent form, the PAS/RR would not be needed. JONNY called pt's guardian, Melony Willard, message left to let her know pt may be able to return to the retirement today, will let her know for certain later on today. MATTHEW Meyer, TABLE WORKER
[2018-07-29] MEDS: clonazePAM 1 MG Tablet PO (12:05)
[2018-07-29 12:10] LABS: Bedside Glucose 304 mg/dL (70-110)
--- NOTE | 2018-07-29 12:37 | NURSING ---
At rest on room air spo2 94%. pt ambulated with this RN and LINE ERECTOR APPRENTICE Mp to [facility]. pt went down and climb back up 14 stairs with 94-95% on room air. pt walked back to room and resting in chair. pt tolerated well.
--- NOTE | 2018-07-29 12:55 | DCINST_ITS ---
- Discharge Diagnoses Current Active Problems: Current Active and Chronic Problems COPD (chronic obstructive pulmonary disease) (Acute) You will use the following diet at home:: Calorie/Carbohydrate Controlled (specify 1200, 1400, etc) - 1800 kcal/day Your food should be the consistency of: Regular Your liquids should be the consistency of: Regular/Thin Discharge Activity: Return to Normal Activity Call your doctor if you observe: Fever of 101 or Higher, Shortness of breath Instructions: Treatment for COPD, Discharge Instructions: COPD Allergies/Adverse Reactions: Allergies No Known Allergies Allergy (Verified 07/22/18 09:30) Medications to take at Discharge Clozapine [Clozaril] 100 mg PO LUNCH 03/28/14 Metformin HCl [Glucophage] 1,000 mg PO BID 03/28/14 Risperidone [Risperdal] 2 mg PO QHS 03/28/14 glipiZIDE [Glucotrol] 5 mg PO BIDAC 03/28/14 Clozapine [Clozaril] 300 mg PO QHS 12/23/14 Insulin Glargine [Lantus SoloStar Pen] 24 units SC QHS 12/23/14 Desvenlafaxine Succinate [Pristiq] 50 mg PO DAILY 07/25/15 Risperidone Microspheres [Risperdal Consta] 50 mg IM Q14D 07/25/15 Tiotropium [place] [Spiriva 18 MCG] 1 puff INHALATION DAILY 07/25/15 Pravastatin Sodium 20 mg PO QHS 12/18/16 Clozapine [Clozaril] 200 mg PO DINNER 10/11/17 Potassium Chloride [K-Dur] 20 meq PO DAILY #30 tab 10/16/17 Cholecalciferol (Vitamin D3) [Vitamin D3] 1,000 unit PO DAILY 10/17/17 [place]-3 Fatty Acids/Fish Oil [Fish Oil 1,000 mg Capsule] 1 each PO DAILY 10/17/17 Albuterol IH (ProAir) [Proair Hfa] 2 puff INHALATION PRN PRN 07/22/18 Aspirin [Aspirin EC] 325 mg PO DAILY 07/22/18 Clonazepam [Klonopin] 0.5 mg PO BREAKFAST 07/22/18 Clonazepam [Klonopin] 1 mg PO 1200 07/22/18 Clonazepam [Klonopin] 1 mg PO QHS 07/22/18 Ferrous Gluconate 325 mg PO BIDCM 07/22/18 Fluticasone/Vilanterol [Breo Ellipta 100-25 Mcg INH] 1 each IH DAILY 07/22/18 Fluticasone/Vilanterol [Breo Ellipta 100-25 Mcg INH] 1 inhaler 07/22/18 Furosemide [Lasix] 20 mg PO DAILY 07/22/18 Lubiprostone [Amitiza] 24 mcg PO BID 07/22/18 Olopatadine HCl [Patanol] 1 drop EACH EYE DAILY 07/22/18 Benzonatate [Tessalon Perle] 100 mg PO Q4H PRN PRN #20 cap 07/25/18 The following prescriptions were given: Benzonatate [Tessalon Perle] 100 mg PO Q4H PRN PRN #20 cap PRN Reason: COUGH Primary Care Physician: Boris Vance MD [Primary Care Provider] - Please follow up with your Primary Care Physician in: in 5-7 days Test Results: Test results from this visit will be discussed in further detail at your follow- up appointment, if applicable. Please Follow Up With: Derrick Spain DO - Pulmonology follow up. When: 4-6 weeks Proposed Discharge Date: 07/25/18
--- NOTE | 2018-07-29 12:55 | PCM.DC.SUM ---
Discharge Date and Diagnosis - Problem List Patient Problems: Active and Suspected Problems Rhinovirus (Acute) Pneumococcal pneumonia (Acute) COPD (chronic obstructive pulmonary disease) (Acute) Date of Admission: 07/22/18 Date of Discharge: 07/29/18 - Primary Discharge Diagnosis Active and Suspected Problems Rhinovirus (Acute) Pneumococcal pneumonia (Acute) COPD (chronic obstructive pulmonary disease) (Acute) 1. Acute COPD exacerbation, presumed likely exacerbated by rhinovirus. continue prednisone and BDs follow up with pulmonology as outpt. Completed 6 days of prednisone 40--will DC. 2. suspected pneumoccal pneumonia small infiltrate on CXR was on CTX and zmax start LVQ through today, then stop 3. Rhinovirus supportive mgmt 4. Acute respiratory failure, hypoxic 2/2 COPD exacerbation Improved No longer requiring oxygen, therefore, can return to assisted rather than go to a SNF. 5. DM2, uncontrolled exacerbated by steroids. Lantus increased to 30 from 24 and stared on scheduled log (10 units) - Secondary Discharge Diagnosis Chronic Problems Nonproductive cough (Chronic) Hyperlipidemia (Chronic) Diabetes mellitus type 2 in obese (Chronic) HTN (hypertension) (Chronic) Schizophrenia (Chronic) Hospital Course and Treatment Imaging Results: Clinical Impression(s) from Imaging Studies Chest X-Ray 07/22/18 09:58 IMPRESSION: There is now a small focal right upper lobe pulmonary parenchymal consolidation, consider infiltrate. Follow-up to clearing recommended. Electronically Signed: Reina Mcrae MD at 10:52 EDT , Service support , Chest CT 07/22/18 13:53 IMPRESSION: Bilateral upper lobe pulmonary parenchymal infiltrates, consider bronchopneumonia. Hepatomegaly with hepatic steatosis. Electronically Signed: Reina Mcrae MD at 15:20 EDT , Service support , Soft Tissue Neck CT 07/23/18 07:46 IMPRESSION: Normal enhanced CT examination of the soft tissues of the neck. Electronically Signed: Reina Mcrae MD at 10:50 EDT , Service support , Pulmonology: Drs. Spain and Wilber. Operations: None Procedures: None Summary of Care Provided: The patient is a 52 year old F presents with shortness of breath and wheezing. Patient was determined to be exacerbation. Chest x-ray was concerning for a right upper lobe infiltrate. Patient was started on steroids, bronchodilators and antibiotics. Patient continued be on oxygen and was initially planned to be discharged on the but the facility would not accept her being on oxygen. Patient was seen in consultation by pulmonology. She had a CAT scan of her neck showed no acute process given the patient's audible wheezing. Patient overall improved. Patient complete her course of antibiotics and steroids which will be discontinued prior to her being discharged. Patient is no longer hypoxic and requiring oxygen and since she does not require oxygen, patient can return to her assisted. [] Patient Problems: Active and Suspected Problems Rhinovirus (Acute) Pneumococcal pneumonia (Acute) COPD (chronic obstructive pulmonary disease) (Acute) - Physical Exam Vital Signs Temp Pulse Resp BP Pulse Ox 36.4 C L 118 H 20 H 119/75 93 07/29/18 11:00 07/29/18 11:00 07/29/18 11:00 07/29/18 11:00 07/29/18 11:10 Oxygen Flow Rate (L/min) [ 0 AMBULATING on Room Air] Oxygen Flow Rate (L/min) [At 0 REST on Room Air] Oxygen Flow Rate (L/min) 2 Oxygen Delivery Method Nasal Cannula Weight: 88.81 kg Body Mass Index (BMI) 37.0 Intake and Output for Last 24 Hours 07/27/18 07/28/18 07/29/18 23:59 23:59 23:59 Intake Total 1370 / 1370 520 / 520 Output Total 1900 / 1900 900 / 900 Balance -530 / -530 -380 / -380 Microbiology Past 72 Hours 07/22/18 14:10 Blood Culture - Final Blood Culture (Wb) - Anticubital Right No growth in 5 days. 07/25/18 14:07 Gram Stain - Final Sputum, Expectorated/Coughed Respiratory Culture - Final Laboratory Tests Past 24 Hrs 07/29/18 07:40 Sodium 136 Potassium 3.5 Chloride 98 Carbon Dioxide 31.0 Anion Gap 7 BUN 17 Creatinine 0.72 Estim Creat Clear Calc 67.40 Est GFR (MDRD) Af Amer 109 Est GFR (MDRD) Non-Af 90 BUN/Creatinine Ratio 23.7 H Glucose 133 H Calcium 9.3 POC Glucose 07/29/18 07/29/18 07/28/18 11:55 09:06 21:22 POC Glucose 304 H 154 H 148 H 07/28/18 16:59 POC Glucose 211 H Discharge Diet: 1800 Calorie Control Diet Discharge Activity: Return to Normal Activity Call your doctor if you observe: Fever of 101 or Higher, Shortness of breath Home Medications: Medications to take at Discharge Clozapine [Clozaril] 100 mg PO LUNCH 03/28/14 Metformin HCl [Glucophage] 1,000 mg PO BID 03/28/14 Risperidone [Risperdal] 2 mg PO QHS 03/28/14 glipiZIDE [Glucotrol] 5 mg PO BIDAC 03/28/14 Clozapine [Clozaril] 300 mg PO QHS 12/23/14 Insulin Glargine [Lantus SoloStar Pen] 24 units SC QHS 12/23/14 Desvenlafaxine Succinate [Pristiq] 50 mg PO DAILY 07/25/15 Risperidone Microspheres [Risperdal Consta] 50 mg IM Q14D 07/25/15 Tiotropium [place] [Spiriva 18 MCG] 1 puff INHALATION DAILY 07/25/15 Pravastatin Sodium 20 mg PO QHS 12/18/16 Clozapine [Clozaril] 200 mg PO DINNER 10/11/17 Potassium Chloride [K-Dur] 20 meq PO DAILY #30 tab 10/16/17 Cholecalciferol (Vitamin D3) [Vitamin D3] 1,000 unit PO DAILY 10/17/17 [place]-3 Fatty Acids/Fish Oil [Fish Oil 1,000 mg Capsule] 1 each PO DAILY 10/17/17 Albuterol IH (ProAir) [Proair Hfa] 2 puff INHALATION PRN PRN 07/22/18 Aspirin [Aspirin EC] 325 mg PO DAILY 07/22/18 Clonazepam [Klonopin] 0.5 mg PO BREAKFAST 07/22/18 Clonazepam [Klonopin] 1 mg PO 1200 07/22/18 Clonazepam [Klonopin] 1 mg PO QHS 07/22/18 Ferrous Gluconate 325 mg PO BIDCM 07/22/18 Fluticasone/Vilanterol [Breo Ellipta 100-25 Mcg INH] 1 each IH DAILY 07/22/18 Fluticasone/Vilanterol [Breo Ellipta 100-25 Mcg INH] 1 inhaler 07/22/18 Furosemide [Lasix] 20 mg PO DAILY 07/22/18 Lubiprostone [Amitiza] 24 mcg PO BID 07/22/18 Olopatadine HCl [Patanol] 1 drop EACH EYE DAILY 07/22/18 Benzonatate [Tessalon Perle] 100 mg PO Q4H PRN PRN #20 cap 07/25/18 Following Prescrptions Were Given to Patient: Benzonatate [Tessalon Perle] 100 mg PO Q4H PRN PRN #20 cap PRN Reason: COUGH Primary Care Physician: Boris Vance MD [Primary Care Provider] - Please follow up with your Primary Care Physician in: in 5-7 days Please Follow Up With: Derrick Spain DO - Pulmonology follow up. When: 4-6 weeks Patient Instructions: Discharge Instructions: COPD, Treatment for COPD Disposition: Home Minutes spent on discharge:: 33 Patient Condition:: Fair Medical Necessity - Tobacco Use Smoking Status: Former smoker Meaningful Use Info Meaningful Use Diagnoses (Choose all that apply): None applicable Code Visit Inpatient E&M: 65901 Disch Hosp
--- NOTE | 2018-07-29 13:01 | DS.PCM_ITS ---
Discharge Date and Diagnosis - Problem List Patient Problems: Active and Suspected Problems Rhinovirus (Acute) Pneumococcal pneumonia (Acute) COPD (chronic obstructive pulmonary disease) (Acute) Date of Admission: 07/22/18 Date of Discharge: 07/29/18 - Primary Discharge Diagnosis Active and Suspected Problems Rhinovirus (Acute) Pneumococcal pneumonia (Acute) COPD (chronic obstructive pulmonary disease) (Acute) 1. Acute COPD exacerbation, presumed * likely exacerbated by rhinovirus. * continue prednisone and BDs * follow up with pulmonology as outpt. * Completed 6 days of prednisone 40--will DC. 2. suspected pneumoccal pneumonia * small infiltrate on CXR * was on CTX and zmax * start LVQ through today, then stop 3. Rhinovirus * supportive mgmt 4. Acute respiratory failure, hypoxic * 2/2 COPD exacerbation * Improved * No longer requiring oxygen, therefore, can return to [facility] rather than go to a SNF. 5. DM2, uncontrolled * exacerbated by steroids. * Lantus increased to 30 from 24 and stared on scheduled log (10 units) - Secondary Discharge Diagnosis Chronic Problems Nonproductive cough (Chronic) Hyperlipidemia (Chronic) Diabetes mellitus type 2 in obese (Chronic) HTN (hypertension) (Chronic) Schizophrenia (Chronic) Hospital Course and Treatment Imaging Results: Clinical Impression(s) from Imaging Studies Chest X-Ray 07/22/18 09:58 IMPRESSION: There is now a small focal right upper lobe pulmonary parenchymal consolidation, consider infiltrate. Follow-up to clearing recommended. Electronically Signed: Reina Mcrae MD at 10:52 EDT , Service support , Chest CT 07/22/18 13:53 IMPRESSION: Bilateral upper lobe pulmonary parenchymal infiltrates, consider bronchopneumonia. Hepatomegaly with hepatic steatosis. Electronically Signed: Reina Mcrae MD at 15:20 EDT , Service support , Soft Tissue Neck CT 07/23/18 07:46 IMPRESSION: Normal enhanced CT examination of the soft tissues of the neck. Electronically Signed: Reina Mcrae MD at 10:50 EDT , Service support , Pulmonology: Drs. Spain and Wilber. Operations: None Procedures: None Summary of Care Provided: The patient is a 52 year old F presents with shortness of breath and wheezing. Patient was determined to be exacerbation. Chest x-ray was concerning for a right upper lobe infiltrate. Patient was started on steroids, bronchodilators and antibiotics. Patient continued be on oxygen and was initially planned to be discharged on the but the facility would not accept her being on oxygen. Patient was seen in consultation by pulmonology. She had a CAT scan of her neck showed no acute process given the patient's audible wheezing. Patient overall improved. Patient complete her course of antibiotics and steroids which will be discontinued prior to her being discharged. Patient is no longer hypoxic and requiring oxygen and since she does not require oxygen, patient can return to her [facility]. [] Patient Problems: Active and Suspected Problems Rhinovirus (Acute) Pneumococcal pneumonia (Acute) COPD (chronic obstructive pulmonary disease) (Acute) - Physical Exam Vital Signs Temp Pulse Resp BP Pulse Ox 36.4 C L 118 H 20 H 119/75 93 07/29/18 11:00 07/29/18 11:00 07/29/18 11:00 07/29/18 11:00 07/29/18 11:10 Oxygen Flow Rate (L/min) [ 0 AMBULATING on Room Air] Oxygen Flow Rate (L/min) [At 0 REST on Room Air] Oxygen Flow Rate (L/min) 2 Oxygen Delivery Method Nasal Cannula Weight: 88.81 kg Body Mass Index (BMI) 37.0 Intake and Output for Last 24 Hours 07/27/18 07/28/18 07/29/18 23:59 23:59 23:59 Intake Total 1370 / 1370 520 / 520 Output Total 1900 / 1900 900 / 900 Balance -530 / -530 -380 / -380 Microbiology Past 72 Hours 07/22/18 14:10 Blood Culture - Final Blood Culture (Wb) - Anticubital Right No growth in 5 days. 07/25/18 14:07 Gram Stain - Final Sputum, Expectorated/Coughed Respiratory Culture - Final Laboratory Tests Past 24 Hrs 07/29/18 07:40 Sodium 136 Potassium 3.5 Chloride 98 Carbon Dioxide 31.0 Anion Gap 7 BUN 17 Creatinine 0.72 Estim Creat Clear Calc 67.40 Est GFR (MDRD) Af Amer 109 Est GFR (MDRD) Non-Af 90 BUN/Creatinine Ratio 23.7 H Glucose 133 H Calcium 9.3 POC Glucose 07/29/18 07/29/18 07/28/18 11:55 09:06 21:22 POC Glucose 304 H 154 H 148 H 07/28/18 16:59 POC Glucose 211 H Discharge Diet: 1800 Calorie Control Diet Discharge Activity: Return to Normal Activity Call your doctor if you observe: Fever of 101 or Higher, Shortness of breath Home Medications: Medications to take at Discharge Clozapine [Clozaril] 100 mg PO LUNCH 03/28/14 Metformin HCl [Glucophage] 1,000 mg PO BID 03/28/14 Risperidone [Risperdal] 2 mg PO QHS 03/28/14 glipiZIDE [Glucotrol] 5 mg PO BIDAC 03/28/14 Clozapine [Clozaril] 300 mg PO QHS 12/23/14 Insulin Glargine [Lantus SoloStar Pen] 24 units SC QHS 12/23/14 Desvenlafaxine Succinate [Pristiq] 50 mg PO DAILY 07/25/15 Risperidone Microspheres [Risperdal Consta] 50 mg IM Q14D 07/25/15 Tiotropium [place] [Spiriva 18 MCG] 1 puff INHALATION DAILY 07/25/15 Pravastatin Sodium 20 mg PO QHS 12/18/16 Clozapine [Clozaril] 200 mg PO DINNER 10/11/17 Potassium Chloride [K-Dur] 20 meq PO DAILY #30 tab 10/16/17 Cholecalciferol (Vitamin D3) [Vitamin D3] 1,000 unit PO DAILY 10/17/17 [place]-3 Fatty Acids/Fish Oil [Fish Oil 1,000 mg Capsule] 1 each PO DAILY 10/17/17 Albuterol IH (ProAir) [Proair Hfa] 2 puff INHALATION PRN PRN 07/22/18 Aspirin [Aspirin EC] 325 mg PO DAILY 07/22/18 Clonazepam [Klonopin] 0.5 mg PO BREAKFAST 07/22/18 Clonazepam [Klonopin] 1 mg PO 1200 07/22/18 Clonazepam [Klonopin] 1 mg PO QHS 07/22/18 Ferrous Gluconate 325 mg PO BIDCM 07/22/18 Fluticasone/Vilanterol [Breo Ellipta 100-25 Mcg INH] 1 each IH DAILY 07/22/18 Fluticasone/Vilanterol [Breo Ellipta 100-25 Mcg INH] 1 inhaler 07/22/18 Furosemide [Lasix] 20 mg PO DAILY 07/22/18 Lubiprostone [Amitiza] 24 mcg PO BID 07/22/18 Olopatadine HCl [Patanol] 1 drop EACH EYE DAILY 07/22/18 Benzonatate [Tessalon Perle] 100 mg PO Q4H PRN PRN #20 cap 07/25/18 Following Prescrptions Were Given to Patient: Benzonatate [Tessalon Perle] 100 mg PO Q4H PRN PRN #20 cap PRN Reason: COUGH Primary Care Physician: Boris Vance MD [Primary Care Provider] - Please follow up with your Primary Care Physician in: in 5-7 days Please Follow Up With: Derrick Spain DO - Pulmonology follow up. When: 4-6 weeks Patient Instructions: Discharge Instructions: COPD, Treatment for COPD Disposition: Home Minutes spent on discharge:: 33 Patient Condition:: Fair Medical Necessity - Tobacco Use Smoking Status: Former smoker Meaningful Use Info Meaningful Use Diagnoses (Choose all that apply): None applicable Code Visit Inpatient E&M: 21452 Disch Hosp
== END 2018-07-29 14:30 | disposition home or self-care (01) | DRG 190 ==
LOC: ED 12:17 → MS2 13:07 → ED 07-23 09:28 → MS2 07-23 09:51
PROVIDERS: Internal Medicine Critical Care Medicine; Admitting Provider Internal Medicine; Emergency Provider Emergency Medicine; Family Provider Family Medicine; PCP Family Medicine; Referring Provider Internal Medicine
DX: J44.0 Chronic obstructive pulmonary disease with (acute) lower respiratory infection (principal); J13 Pneumonia due to Streptococcus pneumoniae; J96.01 Acute respiratory failure with hypoxia; I50.32 Chronic diastolic (congestive) heart failure; E78.5 Hyperlipidemia, unspecified; J44.1 Chronic obstructive pulmonary disease with (acute) exacerbation; G47.33 Obstructive sleep apnea (adult) (pediatric); F20.9 Schizophrenia, unspecified; E11.65 Type 2 diabetes mellitus with hyperglycemia; Z87.891 Personal history of nicotine dependence; Z79.4 Long term (current) use of insulin; F81.9 Developmental disorder of scholastic skills, unspecified; Z68.37 Body mass index [BMI] 37.0-37.9, adult; E66.9 Obesity, unspecified; B34.8 Other viral infections of unspecified site; I11.0 Hypertensive heart disease with heart failure
CPT/HCPCS: 36415; 70491; 71046; 71250; 80048; 82947; 82962; 83735; 85025; 85027; 87040; 87070; 87205; 87449; 87633; 87804; 93005; 94002; 94640; 94660; 94668; 97116; 97162; 97165; 97530; 97802; 99251; 99284; J7030; J7040; J7050; Q9967; A4216; G0463; J1940

== ENCOUNTER 2018-08-04 09:22 | Outpatient (RCR) | payer MEDICARE, MEDICAID, SELFPAY ==
[2018-08-04 10:03] LABS: Absolute Neutrophil Count 10.9 X10^3/uL (2.0-7.7); Basophil# 0.02 X10^3/uL; Basophil% 0.1 % (0-1); Hematocrit 40.4 % (37-47); Lymphocyte % 18.1 % (19-41); Mean Corp Hgb Conc 32.2 g/gl (32-36); Mean Corpuscular Hgb 28.7 pg (27.0-32.0); Mean Corpuscular Volume 89.2 fL (81-99); Mean Platelet Vol. 10.1 fl (6.2-12.0); Monocyte# 0.77 X10^3/uL; Monocyte% 5.4 % (0-10); Neutrophil % 76.1 % (47-70); Platelet Count 195 K/mm3 (150-450); RBC Distribution Width CV 14.3 % (11.6-14.6); RBC Distribution Width SD 45.7 fl (35.1-43.9); Red Blood Count 4.53 M/mm3 (4.2-5.4); White Blood Count 14.3 K/mm3 (4.4-11.0)
[2018-08-04 10:04] LABS: POSITIVE COUNT NO; POSITIVE DIFFERENTIAL NO; POSITIVE MORPHOLOGY NO
== END 2018-08-04 11:00 | disposition home or self-care (01) ==
LOC: LAB 09:22
PROVIDERS: Family Provider Family Medicine; PCP Family Medicine; Referring Provider Psychiatry & Neurology Psychiatry; Visit Provider Psychiatry & Neurology Psychiatry
DX: F20.0 Paranoid schizophrenia (principal); Z79.899 Other long term (current) drug therapy
CPT/HCPCS: 36415; 85025

== ENCOUNTER 2018-08-11 09:17 | Outpatient (RCR) | payer MEDICARE, MEDICAID, SELFPAY ==
[2018-08-11 09:46] VITALS: BP 125/74; PULSE 112; RESP 18; TEMP 36.7; BMI 35.9
--- NOTE | 2018-08-11 10:48 | PCM.WC.HP ---
(1) Puncture wound, hand Status: Acute Current Visit: Yes Qualifiers: Encounter type: initial encounter Code(s): S61.439A - Puncture wound without foreign body of unspecified hand, initial encounter (2) FTT (failure to thrive) in adult Status: Chronic Current Visit: Yes Code(s): R62.7 - Adult failure to thrive (3) COPD (chronic obstructive pulmonary disease) Status: Chronic Current Visit: No Code(s): J44.9 - Chronic obstructive pulmonary disease, unspecified (4) Hyperlipidemia Status: Chronic Current Visit: No Code(s): E78.5 - Hyperlipidemia, unspecified (5) Diabetes mellitus type 2 in obese Status: Chronic Current Visit: No Code(s): E11.9 - Type 2 diabetes mellitus without complications; E66.9 - Obesity, unspecified (6) HTN (hypertension) Status: Chronic Current Visit: No Code(s): I10 - Essential (primary) hypertension (7) Schizophrenia Status: Chronic Current Visit: No Code(s): F20.9 - Schizophrenia, unspecified History of Present Illness Date of Service: 08/11/18 Chief Complaint: Puncture wound of the left hand History of Wound: This is a 52-year-old female who presents with a traumatic wound to the left hand. The wound is located on the webspace at the base of the left thumb. It occurred on July 18 as the result of slamming her left hand in a car door. Since that time, the patient has been treated by her primary care physician, which has included the use of Neosporin topically. Apparently, the patient was also treated with a course of oral antibiotics. Since the time of her injury, the patient has been admitted at [facility] and treatment for bacterial pneumonia. Records from that admission have been reviewed. She was hospitalized for a total of 7 days. The medical problems identified during that hospital stay were chronic obstructive pulmonary disease exacerbation, pneumonia, and hypoxic respiratory failure. An x-ray of the left hand which was performed on July 18, 2018, reveals minimally displaced comminuted fracture of the distal phalanx of the left fifth digit. A splint has been previously implemented. Past Medical History Past Medical History: Chronic Problems Nonproductive cough (Chronic) FTT (failure to thrive) in adult (Chronic) COPD (chronic obstructive pulmonary disease) (Chronic) Hyperlipidemia (Chronic) Diabetes mellitus type 2 in obese (Chronic) HTN (hypertension) (Chronic) Schizophrenia (Chronic) Past Medical History: The patient has a history of schizophrenia, failure to thrive, chronic obstructive pulmonary disease, diabetes mellitus, hypertension, hyperlipidemia, and congestive heart failure. Her history is negative for myocardial infarction, renal disease, cancer, and hyperlipidemia. Surgical History: - - She has previously undergone cholecystectomy and mandibular surgery. She is a [id number]. Allergies/Adverse Reactions: Allergies No Known Allergies Allergy (Verified 07/22/18 09:30) Home Medications: Ambulatory Orders Medication Instructions Recorded Clozapine [Clozaril] 100 mg PO LUNCH 03/28/14 Metformin HCl [Glucophage] 1,000 mg PO BID 03/28/14 Risperidone [Risperdal] 2 mg PO QHS 03/28/14 glipiZIDE [Glucotrol] 5 mg PO BIDAC 03/28/14 Clozapine [Clozaril] 300 mg PO QHS 12/23/14 Insulin Glargine [Lantus SoloStar 24 units SC QHS 12/23/14 Pen] Desvenlafaxine Succinate [Pristiq] 50 mg PO DAILY 07/25/15 Risperidone Microspheres 50 mg IM Q14D 07/25/15 [Risperdal Consta] Tiotropium [place] [Spiriva 18 MCG] 1 puff INHALATION DAILY 07/25/15 Pravastatin Sodium 20 mg PO QHS 12/18/16 Clozapine [Clozaril] 200 mg PO DINNER 10/11/17 Potassium Chloride [K-Dur] 20 meq PO DAILY #30 tab 10/16/17 Cholecalciferol (Vitamin D3) 1,000 unit PO DAILY 10/17/17 [Vitamin D3] [place]-3 Fatty Acids/Fish Oil [Fish 1 each PO DAILY 10/17/17 Oil 1,000 mg Capsule] Albuterol IH (ProAir) [Proair Hfa] 2 puff INHALATION PRN PRN 07/22/18 Aspirin [Aspirin EC] 325 mg PO DAILY 07/22/18 Clonazepam [Klonopin] 0.5 mg PO BREAKFAST 07/22/18 Clonazepam [Klonopin] 1 mg PO 1200 07/22/18 Clonazepam [Klonopin] 1 mg PO QHS 07/22/18 Ferrous Gluconate 325 mg PO BIDCM 07/22/18 Fluticasone/Vilanterol [Breo 1 each IH DAILY 07/22/18 Ellipta 100-25 Mcg INH] Fluticasone/Vilanterol [Breo 1 inhaler 07/22/18 Ellipta 100-25 Mcg INH] Furosemide [Lasix] 20 mg PO DAILY 07/22/18 Lubiprostone [Amitiza] 24 mcg PO BID 07/22/18 Olopatadine HCl [Patanol] 1 drop EACH EYE DAILY 07/22/18 Benzonatate [Tessalon Perle] 100 mg PO Q4H PRN PRN #20 cap 07/25/18 - Family History Paternal - - from a farm accident Maternal No pertinent history Social History: The patient lives in a residential. She denies use of alcohol and tobacco products. She is single. Lives: - - shelter Smoking Status: Former smoker Tobacco Use: Non-smoker Alcohol: None Drugs: None Review of Systems Constitutional: Denies: Chills, Fever, Weight Change Eyes: Denies: Pain, Vision Change HEENT: Denies: Difficulty Hearing, Difficulty Swallowing, Sinus Congestion Cardiovascular: Denies: Chest Pain, Palpitations Respiratory: Denies: Cough, Shortness of Breath Gastrointestinal: Denies: Diarrhea, Nausea, Vomiting Genitourinary: Denies: Dysuria, Hematuria Endocrine: Denies: Heat/ Cold Intolerance, Polydipsia, Polyuria Hematologic/ Lymphatic: Denies: Easy Bruising, Easy Bleeding - Physical Exam Vital Signs Temp Pulse Resp BP 98.0 F 112 H 18 125/74 H 08/11/18 09:46 08/11/18 09:46 08/11/18 09:46 08/11/18 09:46 General: Alert, Oriented x3, Cooperative, No apparent distress, Well developed, Well nourished HEENT: Atraumatic, PERRLA, EOMI, Normocephalic Oral: Moist Mucosa, No Gingival or Mucosal Lesions/ Ulcerations Neck: Supple, No JVD, Negative Carotid Bruits, Negative Hepatojugular Reflux, No Nodes, No Nuchal Rigidity, Trachea Midline Lungs: Clear to auscultation, Normal air movement, No rhonchi, No wheeze, No rales Cardiovascular: Regular rate, Regular Rhythm, Normal S1, Normal S2, No murmurs Abdomen: Soft, Non Tender, Non-Distended, Obese Extremities: No clubbing, No cyanosis, No edema, No Calf Tenderness, - - A linear wound is noted in the webspace at the base of the left thumb. Dimensions are documented elsewhere. The wound is narrow and somewhat superficial. There is no sign of infection or cellulitis. There is a mild amount of bioburden. Wound margins appear to be somewhat macerated. Skin: No rashes Wound Measurements and Assessment WC - Nurse 1 - General Ulcer Measurement Start: 08/11/18 09:35 Freq: Status: Active Protocol: Activity Type Activity Date Activity User E-Sign Co-Sign Detail Recorded Client Recorded Date Recorded By Document 08/11/18 09:46 DV [id number] 08/11/18 10:10 DV 08/11/18 09:46 Wound Center Nurse 1 [Ulcer Assessment] #1 LEFT MEDIAL THUMB- BASE -Combined with other wound No -Current Size (cm) - Length 1.5 -Current Size (cm) - Width 0.1 -Current Size (cm) - Depth 0.1 -Total Square Cm 0.15 -Photo Taken Yes -Epithelialization None Present -Tunneling No -Undermining/Tunneling No -Circular Undermining No -Exudate Amt Small (1-33%) -Exudate Type Yellow/Green -Wound Margin Distinct, Outline Attached -Granulation Amt None Present (0 %) -Granulation Quality N/A -Slough/Fibrin Yes -Necrosis Amt Small (1-33%) -Necrotic Tissue Type Adherent Slough -Texture (Celia-wound Skin Appearance) Assessed Scarring -Moisture (Celia-wound Skin Appearance Assessed ) Maceration Weeping -Color (Celia-wound Skin Appearance) No Abnormality Assessed -Temperature (Celia-wound Skin No Abnormality Appearance) (Pt Warm) -Tenderness on Palpation (Celia-wound Yes Skin Appearance) -Ulcer Cleansing Rinsed/ Irrigated with Saline -Foul Odor after Cleansing No -Anesthetic Used 5% Lidocaine Gel Musculoskeletal: No Muscle Wasting Neurological: Cranial nerves II-XII grossly intact, Neuro grossly intact Psych/Mental Status: Normal Affect, Appropriate, Alert and oriented to time, place, person, mood and affect Debridement Note Laterality: Left - Hand Type of Debridement: Excisional debridement Anesthesia Used: 5% Lidocaine Gel Depth: Down to and including healthy tissue, in the subcutaneous layer Percentage of wound debrided: 100 Instrument Used: - - 1 mm curette Severity: Fat Layer Exposed Amount of bleeding with debridement: Mild Bleeding Controlled with: Compression and gauze Patient tolerated procedure well Assessment/Plan Active Problems Puncture wound, hand (Acute) FTT (failure to thrive) in adult (Chronic) Assessment: This is a 52-year-old female with a left hand penetrating injury. Recent laboratory studies have been obtained, and have been reviewed. Results are as follows: White blood count 14.3. However, this was performed at the time the patient was recently treated for pneumonia. Hemoglobin 13.0, hematocrit 40.4, platelets 195,000. Sodium 136, potassium 3.5, chloride 98, BUN 17, creatinine 0.72, glucose 133, hemoglobin A1c 7.5, calcium 9.3, magnesium 2.0, total protein 8.0, albumin 3.8, alkaline phosphatase 135, ALT 48, AST 20. Plan: We are to implement the use of [place] topically to the traumatic wound to the left hand. This will be applied every other day. Given the limitations of the patient's medical care at her residential, she is to return to the wound center several times weekly for dressing changes. Patient is to follow-up in 2 weeks for reassessment. At this time, there is no sign of infection or cellulitis at the site of her wound. Influenza vaccine was not administered today. The patient is not a smoker. She weighs 190 pounds. Her height is 5 feet 1 inch tall. BMI is 35.9, which places her in a class II obesity category. Weight loss has been recommended, and collaboration with her primary care physician has been recommended.
--- NOTE | 2018-08-11 10:53 | HP.PCM_ITS ---
(1) Puncture wound, hand Status: Acute Current Visit: Yes Qualifiers: Encounter type: initial encounter Code(s): S61.439A - Puncture wound without foreign body of unspecified hand, initial encounter (2) FTT (failure to thrive) in adult Status: Chronic Current Visit: Yes Code(s): R62.7 - Adult failure to thrive (3) COPD (chronic obstructive pulmonary disease) Status: Chronic Current Visit: No Code(s): J44.9 - Chronic obstructive pulmonary disease, unspecified (4) Hyperlipidemia Status: Chronic Current Visit: No Code(s): E78.5 - Hyperlipidemia, unspecified (5) Diabetes mellitus type 2 in obese Status: Chronic Current Visit: No Code(s): E11.9 - Type 2 diabetes mellitus without complications; E66.9 - Obesity, unspecified (6) HTN (hypertension) Status: Chronic Current Visit: No Code(s): I10 - Essential (primary) hypertension (7) Schizophrenia Status: Chronic Current Visit: No Code(s): F20.9 - Schizophrenia, unspecified History of Present Illness Date of Service: 08/11/18 Chief Complaint: Puncture wound of the left hand History of Wound: This is a 52-year-old female who presents with a traumatic wound to the left hand. The wound is located on the webspace at the base of the left thumb. It occurred on July 18 as the result of slamming her left hand in a car door. Since that time, the patient has been treated by her primary care physician, which has included the use of Neosporin topically. Apparently, the patient was also treated with a course of oral antibiotics. Since the time of her injury, the patient has been admitted at [facility] and treatment for bacterial pneumonia. Records from that admission have been reviewed. She was hospitalized for a total of 7 days. The medical problems identified during that hospital stay were chronic obstructive pulmonary disease exacerbation, pneumonia, and hypoxic respiratory failure. An x-ray of the left hand which was performed on July 18, 2018, reveals minimally displaced comminuted fracture of the distal phalanx of the left fifth digit. A splint has been previously implemented. Past Medical History Past Medical History: Chronic Problems Nonproductive cough (Chronic) FTT (failure to thrive) in adult (Chronic) COPD (chronic obstructive pulmonary disease) (Chronic) Hyperlipidemia (Chronic) Diabetes mellitus type 2 in obese (Chronic) HTN (hypertension) (Chronic) Schizophrenia (Chronic) Past Medical History: The patient has a history of schizophrenia, failure to thrive, chronic obstructive pulmonary disease, diabetes mellitus, hypertension, hyperlipidemia, and congestive heart failure. Her history is negative for myocardial infarction, renal disease, cancer, and hyperlipidemia. Surgical History: - - She has previously undergone cholecystectomy and mandibular surgery. She is a [id number]. Allergies/Adverse Reactions: Allergies No Known Allergies Allergy (Verified 07/22/18 09:30) Home Medications: Ambulatory Orders Medication Instructions Recorded Clozapine [Clozaril] 100 mg PO LUNCH 03/28/14 Metformin HCl [Glucophage] 1,000 mg PO BID 03/28/14 Risperidone [Risperdal] 2 mg PO QHS 03/28/14 glipiZIDE [Glucotrol] 5 mg PO BIDAC 03/28/14 Clozapine [Clozaril] 300 mg PO QHS 12/23/14 Insulin Glargine [Lantus SoloStar 24 units SC QHS 12/23/14 Pen] Desvenlafaxine Succinate [Pristiq] 50 mg PO DAILY 07/25/15 Risperidone Microspheres 50 mg IM Q14D 07/25/15 [Risperdal Consta] Tiotropium [place] [Spiriva 18 MCG] 1 puff INHALATION DAILY 07/25/15 Pravastatin Sodium 20 mg PO QHS 12/18/16 Clozapine [Clozaril] 200 mg PO DINNER 10/11/17 Potassium Chloride [K-Dur] 20 meq PO DAILY #30 tab 10/16/17 Cholecalciferol (Vitamin D3) 1,000 unit PO DAILY 10/17/17 [Vitamin D3] [place]-3 Fatty Acids/Fish Oil [Fish 1 each PO DAILY 10/17/17 Oil 1,000 mg Capsule] Albuterol IH (ProAir) [Proair Hfa] 2 puff INHALATION PRN PRN 07/22/18 Aspirin [Aspirin EC] 325 mg PO DAILY 07/22/18 Clonazepam [Klonopin] 0.5 mg PO BREAKFAST 07/22/18 Clonazepam [Klonopin] 1 mg PO 1200 07/22/18 Clonazepam [Klonopin] 1 mg PO QHS 07/22/18 Ferrous Gluconate 325 mg PO BIDCM 07/22/18 Fluticasone/Vilanterol [Breo 1 each IH DAILY 07/22/18 Ellipta 100-25 Mcg INH] Fluticasone/Vilanterol [Breo 1 inhaler 07/22/18 Ellipta 100-25 Mcg INH] Furosemide [Lasix] 20 mg PO DAILY 07/22/18 Lubiprostone [Amitiza] 24 mcg PO BID 07/22/18 Olopatadine HCl [Patanol] 1 drop EACH EYE DAILY 07/22/18 Benzonatate [Tessalon [place]] 100 mg PO Q4H PRN PRN #20 cap 07/25/18 - Family History Paternal - - from a farm accident Maternal No pertinent history Social History: The patient lives in a prison. She denies use of alcohol and tobacco products. She is single. Lives: - - [facility] Smoking Status: Former smoker Tobacco Use: Non-smoker Alcohol: None Drugs: None Review of Systems Constitutional: Denies: Chills, Fever, Weight Change Eyes: Denies: Pain, Vision Change HEENT: Denies: Difficulty Hearing, Difficulty Swallowing, Sinus Congestion Cardiovascular: Denies: Chest Pain, Palpitations Respiratory: Denies: Cough, Shortness of Breath Gastrointestinal: Denies: Diarrhea, Nausea, Vomiting Genitourinary: Denies: Dysuria, Hematuria Endocrine: Denies: Heat/ Cold Intolerance, Polydipsia, Polyuria Hematologic/ Lymphatic: Denies: Easy Bruising, Easy Bleeding - Physical Exam Vital Signs Temp Pulse Resp BP 98.0 F 112 H 18 125/74 H 08/11/18 09:46 08/11/18 09:46 08/11/18 09:46 08/11/18 09:46 General: Alert, Oriented x3, Cooperative, No apparent distress, Well developed, Well nourished HEENT: Atraumatic, PERRLA, EOMI, Normocephalic Oral: Moist Mucosa, No Gingival or Mucosal Lesions/ Ulcerations Neck: Supple, No JVD, Negative Carotid Bruits, Negative Hepatojugular Reflux, No Nodes, No Nuchal Rigidity, Trachea Midline Lungs: Clear to auscultation, Normal air movement, No rhonchi, No wheeze, No ral es Cardiovascular: Regular rate, Regular Rhythm, Normal S1, Normal S2, No murmurs Abdomen: Soft, Non Tender, Non-Distended, Obese Extremities: No clubbing, No cyanosis, No edema, No Calf Tenderness, - - A linear wound is noted in the webspace at the base of the left thumb. Dimensions are documented elsewhere. The wound is narrow and somewhat superficial. There is no sign of infection or cellulitis. There is a mild amount of bioburden. Wound margins appear to be somewhat macerated. Skin: No rashes Wound Measurements and Assessment WC - Nurse 1 - General Ulcer Measurement Start: 08/11/18 09:35 Freq: Status: Active Protocol: Activity Type Activity Date Activity User E-Sign Co-Sign Detail Recorded Client Recorded Date Recorded By Document 08/11/18 09:46 DV [id number] 08/11/18 10:10 DV 08/11/18 09:46 Wound Center Nurse 1 [Ulcer Assessment] #1 LEFT MEDIAL THUMB- BASE -Combined with other wound No -Current Size (cm) - Length 1.5 -Current Size (cm) - Width 0.1 -Current Size (cm) - Depth 0.1 -Total Square Cm 0.15 -Photo Taken Yes -Epithelialization None Present -Tunneling No -Undermining/Tunneling No -Circular Undermining No -Exudate Amt Small (1-33%) -Exudate Type Yellow/Green -Wound Margin Distinct, Outline Attached -Granulation Amt None Present (0 %) -Granulation Quality N/A -Slough/Fibrin Yes -Necrosis Amt Small (1-33%) -Necrotic Tissue Type Adherent Slough -Texture (Celia-wound Skin Appearance) Assessed Scarring -Moisture (Celia-wound Skin Appearance Assessed ) Maceration Weeping -Color (Celia-wound Skin Appearance) No Abnormality Assessed -Temperature (Celia-wound Skin No Abnormality Appearance) (Pt Warm) -Tenderness on Palpation (Celia-wound Yes Skin Appearance) -Ulcer Cleansing Rinsed/ Irrigated with Saline -Foul Odor after Cleansing No -Anesthetic Used 5% Lidocaine Gel Musculoskeletal: No Muscle Wasting Neurological: Cranial nerves II-XII grossly intact, Neuro grossly intact Psych/Mental Status: Normal Affect, Appropriate, Alert and oriented to time, place, person, mood and affect Debridement Note Laterality: Left - Hand Type of Debridement: Excisional debridement Anesthesia Used: 5% Lidocaine Gel Depth: Down to and including healthy tissue, in the subcutaneous layer Percentage of wound debrided: 100 Instrument Used: - - 1 mm curette Severity: Fat Layer Exposed Amount of bleeding with debridement: Mild Bleeding Controlled with: Compression and gauze Patient tolerated procedure well Assessment/Plan Active Problems Puncture wound, hand (Acute) FTT (failure to thrive) in adult (Chronic) Assessment: This is a 52-year-old female with a left hand penetrating injury. Recent laboratory studies have been obtained, and have been reviewed. Results are as follows: White blood count 14.3. However, this was performed at the time the patient was recently treated for pneumonia. Hemoglobin 13.0, hematocrit 40.4, platelets 195,000. Sodium 136, potassium 3.5, chloride 98, BUN 17, creatinine 0.72, glucose 133, hemoglobin A1c 7.5, calcium 9.3, magnesium 2.0, total protein 8.0, albumin 3.8, alkaline phosphatase 135, ALT 48, AST 20. Plan: We are to implement the use of [place] topically to the traumatic wound to the left hand. This will be applied every other day. Given the limitations of the patient's medical care at her prison, she is to return to the wound center several times weekly for dressing changes. Patient is to follow-up in 2 weeks for reassessment. At this time, there is no sign of infection or cellulitis at the site of her wound. Influenza vaccine was not administered today. The patient is not a smoker. She weighs 190 pounds. Her height is 5 feet 1 inch tall. BMI is 35.9, which places her in a class II obesity category. Weight loss has been recommended, and collaboration with her primary care physician has been recommended.
== END 2018-08-12 23:59 ==
LOC: WC 09:17
PROVIDERS: Family Provider Family Medicine; PCP Family Medicine; Visit Provider Surgery
DX: S61.432A Puncture wound without foreign body of left hand, initial encounter (principal); W23.0XXA Caught, crushed, jammed, or pinched between moving objects, initial encounter; J44.9 Chronic obstructive pulmonary disease, unspecified; E78.5 Hyperlipidemia, unspecified; E11.9 Type 2 diabetes mellitus without complications; F20.9 Schizophrenia, unspecified; I10 Essential (primary) hypertension; R62.7 Adult failure to thrive; Z79.82 Long term (current) use of aspirin; Z79.899 Other long term (current) drug therapy; Z79.4 Long term (current) use of insulin; Z87.891 Personal history of nicotine dependence
CPT/HCPCS: 11042; 99212; G0463

== ENCOUNTER 2018-08-24 13:00 | Outpatient (RCR) | payer MEDICARE, MEDICAID, SELFPAY ==
[2018-08-13 02:16] VITALS: BP 125/74; PULSE 112; RESP 18; TEMP 36.7
[2018-08-14 13:55] VITALS: BP 129/67; PULSE 121; RESP 20; TEMP 36.3
[2018-08-17 13:56] VITALS: BP 168/88; PULSE 88; RESP 18; TEMP 37
[2018-08-19 09:07] VITALS: BP 104/76; PULSE 108; RESP 16; TEMP 36.4
[2018-08-21 14:38] VITALS: BP 127/89; PULSE 116; RESP 18; TEMP 37.2
[2018-08-24 12:57] VITALS: BP 145/87; PULSE 120; RESP 18; TEMP 36.2
--- NOTE | 2018-08-24 13:22 | PCM.WC.HP ---
(1) Puncture wound, hand Status: Acute Current Visit: Yes Qualifiers: Encounter type: subsequent encounter Foreign body presence: without foreign body Code(s): S61.439A - Puncture wound without foreign body of unspecified hand, initial encounter (2) FTT (failure to thrive) in adult Status: Chronic Current Visit: Yes Code(s): R62.7 - Adult failure to thrive (3) COPD (chronic obstructive pulmonary disease) Status: Chronic Current Visit: No Code(s): J44.9 - Chronic obstructive pulmonary disease, unspecified (4) Hyperlipidemia Status: Chronic Current Visit: No Code(s): E78.5 - Hyperlipidemia, unspecified (5) Diabetes mellitus type 2 in obese Status: Chronic Current Visit: No Code(s): E11.9 - Type 2 diabetes mellitus without complications; E66.9 - Obesity, unspecified (6) HTN (hypertension) Status: Chronic Current Visit: No Code(s): I10 - Essential (primary) hypertension (7) Schizophrenia Status: Chronic Current Visit: No Code(s): F20.9 - Schizophrenia, unspecified History of Present Illness Chief Complaint: Puncture wound of the left hand History of Wound: This is a 52-year-old female who presented with a traumatic wound to the left hand. The wound is located on the webspace at the base of the left thumb. It occurred on July 18 as the result of slamming her left hand in a car door. Since that time, the patient had been treated by her primary care physician, which has included the use of Neosporin topically. Apparently, the patient was also treated with a course of oral antibiotics. Since the time of her injury, the patient had been admitted at [facility] and treatment for bacterial pneumonia. Records from that admission have been reviewed. She was hospitalized for a total of 7 days. The medical problems identified during that hospital stay were chronic obstructive pulmonary disease exacerbation, pneumonia, and hypoxic respiratory failure. An x-ray of the left hand which was performed on July 18, 2018, revealed minimally displaced comminuted fracture of the distal phalanx of the left fifth digit. A splint had been previously implemented. Past Medical History Past Medical History: Chronic Problems Nonproductive cough (Chronic) FTT (failure to thrive) in adult (Chronic) COPD (chronic obstructive pulmonary disease) (Chronic) Hyperlipidemia (Chronic) Diabetes mellitus type 2 in obese (Chronic) HTN (hypertension) (Chronic) Schizophrenia (Chronic) Surgical History: noncontributory Allergies/Adverse Reactions: Allergies No Known Allergies Allergy (Verified 07/22/18 09:30) Home Medications: Ambulatory Orders Medication Instructions Recorded Clozapine [Clozaril] 100 mg PO LUNCH 03/28/14 Metformin HCl [Glucophage] 1,000 mg PO BID 03/28/14 Risperidone [Risperdal] 2 mg PO QHS 03/28/14 glipiZIDE [Glucotrol] 5 mg PO BIDAC 03/28/14 Clozapine [Clozaril] 300 mg PO QHS 12/23/14 Insulin Glargine [Lantus SoloStar 24 units SC QHS 12/23/14 Pen] Desvenlafaxine Succinate [Pristiq] 50 mg PO DAILY 07/25/15 Risperidone Microspheres 50 mg IM Q14D 07/25/15 [Risperdal Consta] Tiotropium [place] [Spiriva 18 MCG] 1 puff INHALATION DAILY 07/25/15 Pravastatin Sodium 20 mg PO QHS 12/18/16 Clozapine [Clozaril] 200 mg PO DINNER 10/11/17 Potassium Chloride [K-Dur] 20 meq PO DAILY #30 tab 10/16/17 Cholecalciferol (Vitamin D3) 1,000 unit PO DAILY 10/17/17 [Vitamin D3] [place]-3 Fatty Acids/Fish Oil [Fish 1 each PO DAILY 10/17/17 Oil 1,000 mg Capsule] Albuterol IH (ProAir) [Proair Hfa] 2 puff INHALATION PRN PRN 07/22/18 Aspirin [Aspirin EC] 325 mg PO DAILY 07/22/18 Clonazepam [Klonopin] 0.5 mg PO BREAKFAST 07/22/18 Clonazepam [Klonopin] 1 mg PO 1200 07/22/18 Clonazepam [Klonopin] 1 mg PO QHS 07/22/18 Ferrous Gluconate 325 mg PO BIDCM 07/22/18 Fluticasone/Vilanterol [Breo 1 each IH DAILY 07/22/18 Ellipta 100-25 Mcg INH] Fluticasone/Vilanterol [Breo 1 inhaler 07/22/18 Ellipta 100-25 Mcg INH] Furosemide [Lasix] 20 mg PO DAILY 07/22/18 Lubiprostone [Amitiza] 24 mcg PO BID 07/22/18 Olopatadine HCl [Patanol] 1 drop EACH EYE DAILY 07/22/18 - Family History Paternal - - from a farm accident Maternal No pertinent history Smoking Status: Former smoker Tobacco Use: Non-smoker Review of Systems Constitutional: Denies: Chills, Fever, Weight Change Eyes: Denies: Pain, Vision Change HEENT: Denies: Difficulty Hearing, Difficulty Swallowing, Sinus Congestion Cardiovascular: Denies: Chest Pain, Palpitations Respiratory: Denies: Cough, Shortness of Breath Gastrointestinal: Denies: Diarrhea, Nausea, Vomiting Genitourinary: Denies: Dysuria, Hematuria Endocrine: Denies: Heat/ Cold Intolerance, Polydipsia, Polyuria Hematologic/ Lymphatic: Denies: Easy Bruising, Easy Bleeding - Physical Exam Vital Signs Temp Pulse Resp BP 97.1 F L 120 H 18 145/87 H 08/24/18 12:57 08/24/18 12:57 08/24/18 12:57 08/24/18 12:57 General: Alert, Oriented x3, Cooperative, No apparent distress, Well developed, Well nourished HEENT: Atraumatic, PERRLA, EOMI, Normocephalic Oral: Moist Mucosa Neck: No JVD Lungs: Normal air movement Abdomen: Non-Distended Extremities: No clubbing, No cyanosis, No edema, No Calf Tenderness, - - The traumatic wound on the webspace between the left thumb and left first digit is now completely healed and epithelialized. There is no sign of infection or cellulitis. Skin: No rashes, No breakdown Wound Measurements and Assessment WC - Nurse 1 - General Ulcer Measurement Start: 08/14/18 13:54 Freq: Status: Active Protocol: Activity Type Activity Date Activity User E-Sign Co-Sign Detail Recorded Client Recorded Date Recorded By Document 08/21/18 14:38 AN [id number] 08/21/18 14:59 AN Document 08/24/18 12:[address] [facility] [id number] 08/24/18 13:02 BMF 08/21/18 08/24/18 14:38 12:57 Wound Center Nurse 1 [Ulcer Assessment] #1 LEFT MEDIAL THUMB- BASE -Combined with other wound No No -Current Size (cm) - Length 0 0.1 -Current Size (cm) - Width 0 0.1 -Current Size (cm) - Depth 0 0.1 -Total Square Cm 0 0.01 -Photo Taken No -Epithelialization None Present Large 67-100% -Exudate Amt None Present (0 %) -Granulation Amt None Present (0 %) -Slough/Fibrin No -Necrosis Amt None Present (0 %) -Texture (Celia-wound Skin Appearance) No Abnormality Scarring -Moisture (Celia-wound Skin Appearance No Abnormality Dry/Scaly ) -Color (Celia-wound Skin Appearance) Assessed -Temperature (Celia-wound Skin No Abnormality No Abnormality Appearance) (Pt Warm) (Pt Warm) -Tenderness on Palpation (Celia-wound No No Skin Appearance) -Ulcer Cleansing Rinsed/ Rinsed/ Irrigated with Irrigated with Saline Saline -Foul Odor after Cleansing No No -Anesthetic Used 4% Lidocaine Solution Neurological: Cranial nerves II-XII grossly intact, Neuro grossly intact Psych/Mental Status: Normal Affect, Appropriate, Alert and oriented to time, place, person, mood and affect Debridement Note No debridement was completed today Assessment/Plan Active Problems Puncture wound, hand (Acute) FTT (failure to thrive) in adult (Chronic) Assessment: This is a 52-year-old female with a left hand penetrating injury. Recent laboratory studies have been obtained, and have been reviewed. Results are as follows: White blood count 14.3. However, this was performed at the time the patient was recently treated for pneumonia. Hemoglobin 13.0, hematocrit 40.4, platelets 195,000. Sodium 136, potassium 3.5, chloride 98, BUN 17, creatinine 0.72, glucose 133, hemoglobin A1c 7.5, calcium 9.3, magnesium 2.0, total protein 8.0, albumin 3.8, alkaline phosphatase 135, ALT 48, AST 20. Based upon the patient's follow-up examination today, the traumatic wound on the left hand is now completely healed and epithelialized. Plan: Patient is to be discharged today. The patient's left hand traumatic wound is completely healed. She will follow-up henceforth on an as-needed basis. Influenza vaccine was not administered today. The patient is not a smoker. She weighs 190 pounds. Her height is 5 feet 1 inch tall. BMI is 35.9, which places her in a class II obesity category. Weight loss has been recommended, and collaboration with her primary care physician has been recommended.
--- NOTE | 2018-08-24 13:26 | HP.PCM_ITS ---
(1) Puncture wound, hand Status: Acute Current Visit: Yes Qualifiers: Encounter type: subsequent encounter Foreign body presence: without foreign body Code(s): S61.439A - Puncture wound without foreign body of unspecified hand, initial encounter (2) FTT (failure to thrive) in adult Status: Chronic Current Visit: Yes Code(s): R62.7 - Adult failure to thrive (3) COPD (chronic obstructive pulmonary disease) Status: Chronic Current Visit: No Code(s): J44.9 - Chronic obstructive pulmonary disease, unspecified (4) Hyperlipidemia Status: Chronic Current Visit: No Code(s): E78.5 - Hyperlipidemia, unspecified (5) Diabetes mellitus type 2 in obese Status: Chronic Current Visit: No Code(s): E11.9 - Type 2 diabetes mellitus without complications; E66.9 - Obesity, unspecified (6) HTN (hypertension) Status: Chronic Current Visit: No Code(s): I10 - Essential (primary) hypertension (7) Schizophrenia Status: Chronic Current Visit: No Code(s): F20.9 - Schizophrenia, unspecified History of Present Illness Chief Complaint: Puncture wound of the left hand History of Wound: This is a 52-year-old female who presented with a traumatic wound to the left hand. The wound is located on the webspace at the base of the left thumb. It occurred on July 18 as the result of slamming her left hand in a car door. Since that time, the patient had been treated by her primary care physician, which has included the use of Neosporin topically. Apparently, the patient was also treated with a course of oral antibiotics. Since the time of her injury, the patient had been admitted at [facility] and treatment for bacterial pneumonia. Records from that admission have been reviewed. She was hospitalized for a total of 7 days. The medical problems identified during that hospital stay were chronic obstructive pulmonary disease exacerbation, pneumonia, and hypoxic respiratory failure. An x-ray of the left hand which was performed on July 18, 2018, revealed minimally displaced co mminuted fracture of the distal phalanx of the left fifth digit. A splint had been previously implemented. Past Medical History Past Medical History: Chronic Problems Nonproductive cough (Chronic) FTT (failure to thrive) in adult (Chronic) COPD (chronic obstructive pulmonary disease) (Chronic) Hyperlipidemia (Chronic) Diabetes mellitus type 2 in obese (Chronic) HTN (hypertension) (Chronic) Schizophrenia (Chronic) Surgical History: noncontributory Allergies/Adverse Reactions: Allergies No Known Allergies Allergy (Verified 07/22/18 09:30) Home Medications: Ambulatory Orders Medication Instructions Recorded Clozapine [Clozaril] 100 mg PO LUNCH 03/28/14 Metformin HCl [Glucophage] 1,000 mg PO BID 03/28/14 Risperidone [Risperdal] 2 mg PO QHS 03/28/14 glipiZIDE [Glucotrol] 5 mg PO BIDAC 03/28/14 Clozapine [Clozaril] 300 mg PO QHS 12/23/14 Insulin Glargine [Lantus SoloStar 24 units SC QHS 12/23/14 Pen] Desvenlafaxine Succinate [Pristiq] 50 mg PO DAILY 07/25/15 Risperidone Microspheres 50 mg IM Q14D 07/25/15 [Risperdal Consta] Tiotropium [place] [Spiriva 18 MCG] 1 puff INHALATION DAILY 07/25/15 Pravastatin Sodium 20 mg PO QHS 12/18/16 Clozapine [Clozaril] 200 mg PO DINNER 10/11/17 Potassium Chloride [K-Dur] 20 meq PO DAILY #30 tab 10/16/17 Cholecalciferol (Vitamin D3) 1,000 unit PO DAILY 10/17/17 [Vitamin D3] [place]-3 Fatty Acids/Fish Oil [Fish 1 each PO DAILY 10/17/17 Oil 1,000 mg Capsule] Albuterol IH (ProAir) [Proair Hfa] 2 puff INHALATION PRN PRN 07/22/18 Aspirin [Aspirin EC] 325 mg PO DAILY 07/22/18 Clonazepam [Klonopin] 0.5 mg PO BREAKFAST 07/22/18 Clonazepam [Klonopin] 1 mg PO 1200 07/22/18 Clonazepam [Klonopin] 1 mg PO QHS 07/22/18 Ferrous Gluconate 325 mg PO BIDCM 07/22/18 Fluticasone/Vilanterol [Breo 1 each IH DAILY 07/22/18 Ellipta 100-25 Mcg INH] Fluticasone/Vilanterol [Breo 1 inhaler 07/22/18 Ellipta 100-25 Mcg INH] Furosemide [Lasix] 20 mg PO DAILY 07/22/18 Lubiprostone [Amitiza] 24 mcg PO BID 07/22/18 Olopatadine HCl [Patanol] 1 drop EACH EYE DAILY 07/22/18 - Family History Paternal - - from a farm accident Maternal No pertinent history Smoking Status: Former smoker Tobacco Use: Non-smoker Review of Systems Constitutional: Denies: Chills, Fever, Weight Change Eyes: Denies: Pain, Vision Change HEENT: Denies: Difficulty Hearing, Difficulty Swallowing, Sinus Congestion Cardiovascular: Denies: Chest Pain, Palpitations Respiratory: Denies: Cough, Shortness of Breath Gastrointestinal: Denies: Diarrhea, Nausea, Vomiting Genitourinary: Denies: Dysuria, Hematuria Endocrine: Denies: Heat/ Cold Intolerance, Polydipsia, Polyuria Hematologic/ Lymphatic: Denies: Easy Bruising, Easy Bleeding - Physical Exam Vital Signs Temp Pulse Resp BP 97.1 F L 120 H 18 145/87 H 08/24/18 12:57 08/24/18 12:57 08/24/18 12:57 08/24/18 12:57 General: Alert, Oriented x3, Cooperative, No apparent distress, Well developed, Well nourished HEENT: Atraumatic, PERRLA, EOMI, Normocephalic Oral: Moist Mucosa Neck: No JVD Lungs: Normal air movement Abdomen: Non-Distended Extremities: No clubbing, No cyanosis, No edema, No Calf Tenderness, - - The traumatic wound on the webspace between the left thumb and left first digit is now completely healed and epithelialized. There is no sign of infection or cellulitis. Skin: No rashes, No breakdown Wound Measurements and Assessment WC - Nurse 1 - General Ulcer Measurement Start: 08/14/18 13:54 Freq: Status: Active Protocol: Activity Type Activity Date Activity User E-Sign Co-Sign Detail Recorded Client Recorded Date Recorded By Document 08/21/18 14:38 AN [id number] 08/21/18 14:59 AN Document 08/24/18 12:57 [facility] [id number] 08/24/18 13:02 BM 08/21/18 08/24/18 14:38 12:57 Wound Center Nurse 1 [Ulcer Assessment] #1 LEFT MEDIAL THUMB- BASE -Combined with other wound No No -Current Size (cm) - Length 0 0.1 -Current Size (cm) - Width 0 0.1 -Current Size (cm) - Depth 0 0.1 -Total Square Cm 0 0.01 -Photo Taken No -Epithelialization None Present Large 67-100% -Exudate Amt None Present (0 %) -Granulation Amt None Present (0 %) -Slough/Fibrin No -Necrosis Amt None Present (0 %) -Texture (Celia-wound Skin Appearance) No Abnormality Scarring -Moisture (Celia-wound Skin Appearance No Abnormality Dry/Scaly ) -Color (Celia-wound Skin Appearance) Assessed -Temperature (Celia-wound Skin No Abnormality No Abnormality Appearance) (Pt Warm) (Pt Warm) -Tenderness on Palpation (Celia-wound No No Skin Appearance) -Ulcer Cleansing Rinsed/ Rinsed/ Irrigated with Irrigated with Saline Saline -Foul Odor after Cleansing No No -Anesthetic Used 4% Lidocaine Solution Neurological: Cranial nerves II-XII grossly intact, Neuro grossly intact Psych/Mental Status: Normal Affect, Appropriate, Alert and oriented to time, place, person, mood and affect Debridement Note No debridement was completed today Assessment/Plan Active Problems Puncture wound, hand (Acute) FTT (failure to thrive) in adult (Chronic) Assessment: This is a 52-year-old female with a left hand penetrating injury. Recent laboratory studies have been obtained, and have been reviewed. Results are as follows: White blood count 14.3. However, this was performed at the time the patient was recently treated for pneumonia. Hemoglobin 13.0, hematocrit 40.4, platelets 195,000. Sodium 136, potassium 3.5, chloride 98, BUN 17, creatinine 0.72, glucose 133, hemoglobin A1c 7.5, calcium 9.3, magnesium 2.0, total protein 8.0, albumin 3.8, alkaline phosphatase 135, ALT 48, AST 20. Based upon the patient's follow-up examination today, the traumatic wound on the left hand is now completely healed and epithelialized. Plan: Patient is to be discharged today. The patient's left hand traumatic wound is completely healed. She will follow-up henceforth on an as-needed basis. Influenza vaccine was not administered today. The patient is not a smoker. She weighs 190 pounds. Her height is 5 feet 1 inch tall. BMI is 35.9, which places her in a class II obesity category. Weight loss has been recommen ded, and collaboration with her primary care physician has been recommended.
== END 2018-09-11 23:59 ==
LOC: WC 13:00
PROVIDERS: Family Provider Family Medicine; PCP Family Medicine; Visit Provider Surgery
DX: Z09 Encounter for follow-up examination after completed treatment for conditions other than malignant neoplasm (principal); J44.9 Chronic obstructive pulmonary disease, unspecified; E11.9 Type 2 diabetes mellitus without complications; I10 Essential (primary) hypertension; E78.5 Hyperlipidemia, unspecified; Z79.84 Long term (current) use of oral hypoglycemic drugs; Z79.899 Other long term (current) drug therapy; Z87.891 Personal history of nicotine dependence
CPT/HCPCS: 99212; G0463

== ENCOUNTER 2018-09-01 09:18 | Outpatient (RCR) | payer MEDICARE, MEDICAID, SELFPAY ==
[2018-09-01 10:43] LABS: Absolute Neutrophil Count 9.1 X10^3/uL (2.0-7.7); Basophil# 0.02 X10^3/uL; Basophil% 0.2 % (0-1); Lymphocyte % 18.4 % (19-41); Mean Corp Hgb Conc 31.7 g/gl (32-36); Mean Corpuscular Hgb 29.1 pg (27.0-32.0); Mean Corpuscular Volume 91.7 fL (81-99); Mean Platelet Vol. 11.1 fl (6.2-12.0); Monocyte# 0.63 X10^3/uL; Monocyte% 5.3 % (0-10); Neutrophil # 9.08 X10^3/uL (2.7-7.7); Platelet Count 188 K/mm3 (150-450); RBC Distribution Width CV 15.1 % (11.6-14.6); Red Blood Count 4.47 M/mm3 (4.2-5.4); White Blood Count 11.9 K/mm3 (4.4-11.0)
[2018-09-01 10:45] LABS: Differential Indicated SCAN CRITERIA MET; POSITIVE COUNT NO; POSITIVE DIFFERENTIAL NO; POSITIVE MORPHOLOGY YES
== END 2018-09-11 10:31 | disposition home or self-care (01) ==
LOC: LAB 09:18
PROVIDERS: Family Provider Family Medicine; PCP Family Medicine; Referring Provider Psychiatry & Neurology Psychiatry; Visit Provider Psychiatry & Neurology Psychiatry
DX: F20.0 Paranoid schizophrenia (principal); Z79.899 Other long term (current) drug therapy
CPT/HCPCS: 36415; 85025

== ENCOUNTER 2018-10-01 09:08 | Outpatient (RCR) | payer MEDICARE, MEDICAID, SELFPAY ==
[2018-10-01 09:47] LABS: Absolute Lymphocyte Count 2.27 X10^3/ul (0.83-4.51); Absolute Neutrophil Count 7.9 X10^3/uL (2.0-7.7); Basophil# 0.01 X10^3/uL; Basophil% 0.1 % (0-1); Eosinophil# 0.01 X10^3/uL; Eosinophils% 0.1 % (0-5); Hematocrit 39.8 % (37-47); Hemoglobin 13.1 g/dl (12.0-15.0); Lymphocyte # 2.27 X10^3/ul (4.0); Lymphocyte % 20.3 % (19-41); Mean Corp Hgb Conc 32.9 g/gl (32-36); Mean Corpuscular Hgb 29.3 pg (27.0-32.0); Mean Platelet Vol. 9.9 fl (6.2-12.0); Monocyte# 0.95 X10^3/uL; Monocyte% 8.5 % (0-10); Neutrophil # 7.91 X10^3/uL (2.7-7.7); Neutrophil % 70.8 % (47-70); Platelet Count 229 K/mm3 (150-450); RBC Distribution Width CV 14.5 % (11.6-14.6); RBC Distribution Width SD 46.6 fl (35.1-43.9); Red Blood Count 4.47 M/mm3 (4.2-5.4); White Blood Count 11.2 K/mm3 (4.4-11.0)
[2018-10-01 09:56] LABS: POSITIVE COUNT NO; POSITIVE DIFFERENTIAL NO; POSITIVE MORPHOLOGY NO
== END 2018-10-01 10:00 | disposition home or self-care (01) ==
LOC: LAB 09:08
PROVIDERS: Family Provider Family Medicine; PCP Family Medicine; Referring Provider Psychiatry & Neurology Psychiatry; Visit Provider Psychiatry & Neurology Psychiatry
DX: F20.0 Paranoid schizophrenia (principal); Z79.899 Other long term (current) drug therapy
CPT/HCPCS: 36415; 85025

== ENCOUNTER 2018-10-29 09:18 | Outpatient (RCR) | payer MEDICARE, MEDICAID, SELFPAY ==
[2018-10-29 10:42] LABS: Absolute Lymphocyte Count 2.64 X10^3/ul (0.83-4.51); Absolute Neutrophil Count 6.5 X10^3/uL (2.0-7.7); Basophil# 0.02 X10^3/uL; Basophil% 0.2 % (0-1); Hematocrit 42.5 % (37-47); Hemoglobin 13.6 g/dl (12.0-15.0); Lymphocyte # 2.64 X10^3/ul (4.0); Mean Corpuscular Hgb 29.1 pg (27.0-32.0); Mean Corpuscular Volume 90.8 fL (81-99); Mean Platelet Vol. 10.6 fl (6.2-12.0); Monocyte# 0.61 X10^3/uL; Monocyte% 6.2 % (0-10); Neutrophil # 6.47 X10^3/uL (2.7-7.7); Neutrophil % 66.3 % (47-70); Platelet Count 210 K/mm3 (150-450); RBC Distribution Width CV 14.3 % (11.6-14.6); RBC Distribution Width SD 47.4 fl (35.1-43.9); Red Blood Count 4.68 M/mm3 (4.2-5.4); White Blood Count 9.8 K/mm3 (4.4-11.0)
[2018-10-29 10:58] LABS: Differential Indicated SCAN CRITERIA MET; POSITIVE COUNT NO; POSITIVE DIFFERENTIAL NO; POSITIVE MORPHOLOGY YES
--- OUTSIDE RECORDS SUMMARY | 2019-01-02 22:55 | XMS RPT_ITS ---
:1965 Author Organization OHIP Support Name Relationship Address Phone D Unavailable Unavailable Unavailable SHELL, EARL Unavailable Unavailable + LEOLA GREEN Unavailable [address] + [place] [address] D Unavailable Unavailable Unavailable SHELL, EARL Unavailable Unavailable + LEOLA GREEN Unavailable [address] + [place] [address] D Unavailable Unavailable Unavailable SHELL, EARL Unavailable Unavailable + LEOLA GREEN Unavailable [address] + [place] [address] D Unavailable Unavailable Unavailable SHELL, EARL Unavailable Unavailable + LEOLA GREEN Unavailable [address] + [place] [address] D Unavailable Unavailable Unavailable SHELL, EARL Unavailable Unavailable + LEOLA GREEN Unavailable [address] + [place] [address] D Unavailable Unavailable Unavailable SHELL, EARL Unavailable Unavailable + LEOLA GREEN Unavailable [address] + [place] [address] D Unavailable Unavailable Unavailable SHELL, EARL Unavailable Unavailable + LEOLA GREEN Unavailable [address] + [place] [address] D Unavailable Unavailable Unavailable SHELL, EARL Unavailable Unavailable + SUBRANNI, LEOLA Unavailable [address] + [place] [address] D Unavailable Unavailable Unavailable SHELL, EARL Unavailable Unavailable + LEOLA GREEN Unavailable [address] + [place] [address] D Unavailable Unavailable Unavailable SHELL, EARL Unavailable Unavailable + LEOLA GREEN Unavailable [address] + [place] [address] D Unavailable Unavailable Unavailable SHELL, EARL Unavailable Unavailable + SUBLEOLA AGUILAR Unavailable [address] + [place] [address] D Unavailable Unavailable Unavailable SHELL, EARL Unavailable Unavailable + LEOLA GREEN Unavailable [address] + [place] [address] D Unavailable Unavailable Unavailable SHELL, EARL Unavailable Unavailable + LEOLA GREEN Unavailable [address] + [place] [address] D Unavailable Unavailable Unavailable SHELL, EARL Unavailable Unavailable + EMILI GRENEE Unavailable [address] + [place] [address] D Unavailable Unavailable Unavailable SHELL, EARL Unavailable Unavailable + LEOLA GREEN Unavailable [address] + [place] [address] D Unavailable Unavailable Unavailable SHELL, EARL Unavailable Unavailable + LEOLA GREEN Unavailable [address] + [place] [address] D Unavailable Unavailable Unavailable SHELL, EARL Unavailable Unavailable + EMILI GREENE Unavailable [address] + [place] [address] D Unavailable Unavailable Unavailable LEOLA GREEN Unavailable [address] + [place] [address] D Unavailable Unavailable Unavailable LE, FREDO Unavailable Unavailable + NORMAPATRICLEOLA Unavailable [address] + [place] [address] D Unavailable Unavailable Unavailable LE, FREDO Unavailable Unavailable + LEOLA GREEN Unavailable [address] + [place] [address] D Unavailable Unavailable Unavailable LE, FREDO Unavailable Unavailable + LEOLA GREEN Unavailable [address] + [place] [address] D Unavailable Unavailable Unavailable LE, FREDO Unavailable Unavailable + LEOLA GREEN Unavailable [address] + [place] [address] D Unavailable Unavailable Unavailable LE, FREDO Unavailable Unavailable + [place] [address] NORMA LEOLA Unavailable [address] + [place] [address] D Unavailable Unavailable Unavailable LE, FREDO Unavailable Unavailable + [place] [address] NORMAPATRICLEOLA Unavailable [address] + [place] [address] D Unavailable Unavailable Unavailable LE, FREDO Unavailable Unavailable + [place] [address] NORMA LEOLA Unavailable [address] + [place] [address] D Unavailable Unavailable Unavailable LE, FREDO Unavailable Unavailable + [place] [address] LIONELLAUREN LEOLA Unavailable [address] + [place] [address] D Unavailable Unavailable Unavailable LE, FREDO Unavailable Unavailable + [place] [address] SUBRANABRIL LEOLA Unavailable [address] + [place] [address] D Unavailable Unavailable Unavailable LE, FREDO Unavailable Unavailable + [place] [address] SUBRANABRIL LEOLA Unavailable [address] [phone] [place] [address] D Unavailable Unavailable Unavailable LE, FREDO Unavailable Unavailable + [place] [address] SUBRANNI, LEOLA Unavailable [address] [phone] [place] [address] D Unavailable Unavailable Unavailable LE, FREDO Unavailable Unavailable + [place] [address] SUBRANNI, LEOLA Unavailable [address] [phone] [place] [address] D Unavailable Unavailable Unavailable LE, FREDO Unavailable Unavailable + [place] [address] SUBRANNI, LEOLA Unavailable [address] [phone] [place] [address] D Unavailable Unavailable Unavailable LE, FREDO Unavailable Unavailable + [place] [address] SUBRANABRIL LEOLA Unavailable [address] [phone] [place] [address] D Unavailable Unavailable Unavailable LE, FREDO Unavailable . + [place] [address] SUBRANNI, LEOLA Unavailable [address] [phone] [place] [address] D Unavailable Unavailable Unavailable LE, FREDO Unavailable . + [place] [address] SUBRANNI, LEOLA Unavailable [address] [phone] [place] [address] D Unavailable Unavailable Unavailable LE, FREDO Unavailable . + [place] [address] LEOLA GREEN Unavailable [address] [phone] [place] [address] Care Team Providers Name Role Phone Robert, Boris Primary Care Unavailable Astreika, Vera Consulting Unavailable Astreika, Vera Attending Unavailable Astreika, Vera Referring Unavailable LopesConcetta gomez R. Attending Unavailable [place], Boris Primary Care Unavailable Lopes, Nukala R. Referring Unavailable Robert, Boris Attending Unavailable [place], Boris Primary Care Unavailable Ruben Amaya Attending Unavailable Ruben Amaya Referring Unavailable Robert, Boris Primary Care Unavailable Cnocetta Lopes RMeghan Attending Unavailable Lopes, Nukala R. Referring Unavailable [place], Boris Primary Care Unavailable Concetta Lopes Attending Unavailable Moses, Nukala R. Referring Unavailable Robert, Boris Primary Care Unavailable Robert, Boris Attending Unavailable [place], Boris Primary Care Unavailable [place], Boris Referring Unavailable Robert, Boris Primary Care Unavailable Lore Avalos Attending Unavailable Concetta Lopes Attending Unavailable Lopes, Nukala R. Referring Unavailable [place], Boris Primary Care Unavailable Moses Nukachristelle R. Attending Unavailable Lopes, Nukala R. Referring Unavailable Robert, Boris Primary Care Unavailable JENNIFER LANDAVERDE Attending Unavailable JENNIFER LANDAVERDE Referring Unavailable [place], Boris Primary Care Unavailable [place], Boris Attending Unavailable Robert, Boris Primary Care Unavailable [place], Boris Attending Unavailable Robert, Boris Primary Care Unavailable Robert, Boris Referring Unavailable Robert, Boris Attending Unavailable Robert, Boris Referring Unavailable [place], Boris Primary Care Unavailable Robert, Boris Attending Unavailable [place], Boris Referring Unavailable Robert, Boris Primary Care Unavailable Concetta Lopes RMeghan Attending Unavailable Lopes, Nukala R. Referring Unavailable Robert, Boris Primary Care Unavailable Astreika, Vera Consulting Unavailable LopesConcetta gomez R. Attending Unavailable Lopes, Nukala R. Referring Unavailable Robert, Boris Primary Care Unavailable Astreika, Vera Consulting Unavailable LopesSanjana gomezkachristelle R. Attending Unavailable Lopes, Nukala R. Referring Unavailable Robert, Boris Primary Care Unavailable Astreika, Vera Consulting Unavailable Robert, Boris Primary Care Unavailable Dave Zimmer Attending Unavailable [place], [facility] Primary Care Unavailable Kittoe, Lauro Admitting Unavailable [place], Lauro Referring Unavailable Derrick Spain D.O. Consulting Unavailable aLron Chavez Attending Unavailable [place], Lauro Attending Unavailable [place], [facility] Primary Care Unavailable [place], Lauro Admitting Unavailable [place], Lauro Attending Unavailable Kittoe, Lauro Referring Unavailable [place], [facility] Primary Care Unavailable Kittoe, Lauro Consulting Unavailable Kittoe, Lauro Admitting Unavailable Kittoe, Lauro Attending Unavailable Kittoe, Lauro Referring Unavailable [place], [facility] Primary Care Unavailable Kittoe, Lauro Consulting Unavailable Kittoe, Lauro Admitting Unavailable Kittoe, Lauro Attending Unavailable Kittoe, Lauro Referring Unavailable [place], [facility] Primary Care Unavailable Kittoe, Lauro Consulting Unavailable Kittoe, Lauro Admitting Unavailable Kittoe, Lauro Attending Unavailable Kittoe, Lauro Referring Unavailable [place], [facility] Primary Care Unavailable Derrick Spain D.O. Consulting Unavailable Lauro Noguera Consulting Unavailable Kittobrennan, Lauro Admitting Unavailable Derrick Spain D.O. Attending Unavailable KittoeLauro Referring Unavailable [facility] Primary Care Unavailable Derrick Spain D.O. Consulting Unavailable Lauro Noguera Consulting Unavailable [place], Lauro Admitting Unavailable Laron Chavez Attending Unavailable [place], Lauro Referring Unavailable [place], [facility] Primary Care Unavailable Derrick Spain D.O. Consulting Unavailable Laron Chavez Consulting Unavailable Lauro Noguera Admitting Unavailable Laron Chavez Attending Unavailable KitLauro morrissey Referring Unavailable [place], [facility] Primary Care Unavailable Derrick Spain D.O. Consulting Unavailable Laron Chavez Consulting Unavailable KittoeLauro Admitting Unavailable Laron Chavez Attending Unavailable KitLauro morrissey Referring Unavailable [place], [facility] Primary Care Unavailable Derrick Spain D.O. Consulting Unavailable Laron Chavez Consulting Unavailable Judd Merino Attending Unavailable Laron Chavez Referring Unavailable Shlomo Wilkerson Attending Unavailable [place], [facility] Primary Care Unavailable Shlomo Wilkerson Attending Unavailable [place], [facility] Primary Care Unavailable Concetta Lopes Attending Unavailable Concetta Lopes Referring Unavailable [place], [facility] Primary Care Unavailable Lorraine Springer Consulting Unavailable Shlomo Wilkerson Attending Unavailable Boris Jones Primary Care Unavailable Lopes, Nukala R. Attending Unavailable Concetta Lopes Referring Unavailable Robert, Boris Primary Care Unavailable Lorraine Springer Unavailable ROBERT, BORIS Jeffrey Referring Unavailable RUBEN AMAYA Referring Unavailable ROBERT, BORIS Jeffrey Attending Unavailable ROBERT, BORIS Jeffrey Attending Unavailable ROBERT, BORIS Jeffrey Referring Unavailable ROBERT, BORIS Jeffrey Referring Unavailable ROBERT, BORIS Jeffery Referring Unavailable RUBEN AMAYA Referring Unavailable ROBERT, BORIS Jeffrey Referring Unavailable ASHER MUÑOZ (HAND COKE DRAWER) Attending Unavailable ROBERT, BORIS Jeffrey Referring Unavailable ROBERT, BORIS Jeffrey Attending Unavailable ROBERT, BORIS Jeffrey Referring Unavailable ROBERT, BORIS Jeffrey Referring Unavailable ROBERT, BORIS Jeffrey Referring Unavailable ROBERT, BORIS Jeffrey Attending Unavailable ROBERT, BORIS Jeffrey Referring Unavailable RUBEN AMAYA Attending Unavailable RUBEN AMAYA Referring Unavailable RUBEN AMAYA Referring Unavailable Alma NUNO (PA-C) Referring Unavailable ROBERT, BORIS Jeffrey Attending Unavailable Alma NUNO (PA-C) Referring Unavailable Alma NUNO (PA-C) Attending Unavailable CUATE LARA Attending Unavailable Alma NUNO (PA-C) Referring Unavailable Alma NUNO (PA-C) Attending Unavailable Alma NUNO (PA-C) Referring Unavailable Alma NUNO (PA-C) Referring Unavailable ROBERT, BORIS Jeffrey Attending Unavailable CUATE LARA Referring Unavailable CUATE LARA Attending Unavailable CUATE LARA Referring Unavailable Alma NUNO (PA-C) Referring Unavailable CUATE LARA Referring Unavailable CUATE LARA Attending Unavailable CUATE LARA Referring Unavailable BORIS JONES Attending Unavailable ROBERT, BORIS Jeffrey Referring Unavailable ROBERT, BORIS Jeffrey Referring Unavailable ROBERT, BORIS Jeffrey Referring Unavailable ROBERT, BORIS Jeffrey Referring Unavailable RUBEN AMAYA Attending Unavailable RUBEN AMAYA Referring Unavailable RUBEN AMAYA Attending Unavailable RUBEN AMAYA Referring Unavailable Boris Jones MD Primary Care Unavailable RUBEN AMAYA Attending Unavailable RUBEN AMAYA Referring Unavailable Robert Boris SANDERS Primary Care Unavailable PROBLEMS PROBLEMS DATE TYPE CONDITION / CODE ATTENDING STATUS SOURCE 10/09/2018 Active Abnormal levels of NA Active [facility] other serum enzymes [facility] / R74.8(ICD-10) [facility] Rep[facility] 10/02/2018 Active Epigastric pain / NA Active [facility] R10.13(ICD-10) [facility] Rep[facility] 10/02/2018 Active Chest pain, NA Active [facility] unspecified / [facility] R07.9(ICD-10) [facility] Repository 10/12/2018 Unknown F20.0 - Paranoid LopesConcetta gomez Active [facility] schizophrenia / R. Community F20.0(ICD-10) Hospital Repository 10/12/2018 Unknown Z79.899 - Other long LopesConcetta gomez Active [facility] term (current) drug R. 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 [facility] / E11.21(ICD-10) Repository 08/06/2018 Active Unspecified open NA Active [facility] wound of left hand, Clinic [facility] initial encounter / [facility] S61.402A(ICD-10) Repository 08/06/2018 Active Hypokalemia / NA Active [facility] E87.6(ICD-10) [facility] Main [facility] Repository 08/07/2018 Unknown J96.01 - Acute Wilber, Judd Active [facility] respiratory failure Community with hypoxia / Hospital J96.01(ICD-10) Repository 08/07/2018 Unknown E11.9 - Type 2 Wilber, Judd Active [facility] diabetes mellitus Community without Hospital complications / Repository E11.9(ICD-10) 08/07/2018 Unknown G47.33 - Obstructive Wilber, Judd Active [facility] sleep apnea (adult) Community (pediatric) / Hospital G47.33(ICD-10) Repository 08/07/2018 Unknown F09 - Unspecified Wilber, Judd Active [facility] mental disorder due Community to known Hospital physiological Repository condition / F09(ICD-10) 08/07/2018 Unknown E66.9 - Obesity, Wilber, Judd Active [facility] unspecified / Community E66.9(ICD-10) Hospital Repository 08/07/2018 Unknown E78.5 - Wilber, Judd Active [facility] Hyperlipidemia, Community unspecified / Hospital E78.5(ICD-10) Repository 11/05/2018 Unknown M54.5 - Low back Forest[place]Boris Active [facility] pain / M54.5(ICD-10) Community Hospital Repository 06/17/2018 Active Anemia, unspecified NA Active [facility] / D64.9(ICD-10) [facility] Main [facility] Repository 06/08/2018 Active Tachycardia, NA Active [facility] unspecified / [facility] R00.0(ICD-10) [facility] Repository 06/08/2018 Active Essential (primary) NA Active [facility] hypertension / [facility] I10(ICD-10) [facility] Repository 04/30/2018 Active Other fatigue / NA Active [facility] R53.83(ICD-10) [facility] Repository 04/30/2018 Unknown E78.2 - Mixed Boris Jones Active [facility] hyperlipidemia / Community E78.2(ICD-10) Hospital Repository 04/09/2018 Unknown D72.829 - Elevated Boris Jones Active [facility] white blood cell Community count, unspecified / Hospital D72.829(ICD-10) Repository 04/08/2018 Active Elevated white blood NA Active [facility] cell count, [facility] unspecified / [facility] D72.829(ICD-10) Repository 04/08/2018 Unknown R06.02 - Shortness Boris Jones Active [facility] of breath / Community R06.02(ICD-10) Hospital Repository 03/16/2018 Active Wheezing / NA Active [facility] R06.2(ICD-10) [facility] Repository 03/05/2018 Active Encounter for NA Active [facility] screening mammogram [facility] for malignant [facility] neoplasm of breast / Repository Z12.31(ICD-10) 11/07/2017 Active Acute diastolic NA Active [facility] (congestive) heart Clinic Main failure / [facility] I50.31(ICD-10) Repository 02/17/2018 Active Iron deficiency NA Active [facility] anemia, unspecified Clinic Main / D50.9(ICD-10) [facility] Repository 02/08/2018 Unknown S05.8X9A - Other Ungur, Remus Active [facility] injuries of Community unspecified eye and Hospital orbit, initial Repository encounter / S05.8X9A(ICD-10) 01/21/2018 Unknown E55.9 - Vitamin D Brois Jones Active [facility] deficiency, Community unspecified / Hospital E55.9(ICD-10) Repository 01/21/2018 Unknown E11.21 - Type 2 Boris Jones Active [facility] diabetes mellitus Community with diabetic Hospital nephropathy / Repository E11.21(ICD-10) 09/22/2014 Active Other fluid overload NA Active [facility] / E87.79(ICD-10) Clinic Main [facility] Repository 05/03/2011 Active Vitamin D NA Active [facility] deficiency, [facility] unspecified / [facility] E55.9(ICD-10) Repository 01/20/2018 Active Restless legs NA Active [facility] syndrome / [facility] G25.81(ICD-10) [facility] Repository 01/20/2018 Active intermediate (current) NA Active [facility] use of insulin / Clinic Main Z79.4(ICD-10) [facility] Repository 01/20/2018 Active Mixed hyperlipidemia NA Active [facility] / E78.2(ICD-10) Clinic Main [facility] Repository 01/13/2018 Active Encounter for NA Active [facility] screening for [facility] Main malignant neoplasm [facility] of colon / Repository Z12.11(ICD-10) 11/28/2017 Unknown R00.2 - Palpitations Monique, Active [facility] / R00.2(ICD-10) [facility] Repository 11/27/2017 Active Palpitations / NA Active [facility] R00.2(ICD-10) Clinic Main [facility] Repository 11/27/2017 Active Chronic diastolic MONIQUE, Active [facility] (congestive) heart [facility] Other failure / [facility] I50.32(ICD-10) Repository 11/27/2017 Admitting Unknown / MONIQUE, Active [place] [facility] diagnosis UNK(Unknown) [facility] Repository 2017 Active Hypo-osmolality and NA Active [facility] hyponatremia / Clinic Main E87.1(ICD-10) [facility] Repository PROCEDURES PROCEDURES No Procedure Records FoundRESULTS RESULTS PROGRESS Observed: 11/03/2018 Status: COMPLETED Source: [facility] 10:00 AM [facility] REPOSITORY HNO ID: [id number] Author: Asia (Rn) Indra Service: (none) Author Type: Registered Nurse Type: Progress Notes Filed: 11/03/2018 10:03 AM Note Text: PRIMARY CARE COORDINATION FOLLOW-UP NOTE Provider Action/FYI FYI Patient identified by name and date of . YES Spoke to Jono BAUTISTA Summary: Instructed pt can use very cautiously, only 2-3 days in a row, not on a regular basis, because pt can get rebound nasal congestion which will make nasal congestion worse. Also pt can have elevated BS when she uses it so watch and call if BS elevated, verbalized understanding by teachback Savings Teller plan for next outreach: Will follow up 2 weeks Signature Asia Burrell RN November 03, 2018 PROGRESS Observed: 11/03/2018 Status: COMPLETED Source: [facility] 6:53 AM [facility] REPOSITORY HNO ID: [id number] Author: Alma Jovel) Yaakov Service: (none) Author Type: Physician Shoe Reconditioner Type: Progress Notes Filed: 11/03/2018 10:03 AM Note Text: She should not use on a regular basis. 2-3 days at most. May cause elevated blood sugar and rebound nasal congestion. Use very cautiously. Thanks, Alejandro Nuno PA-C PROGRESS Observed: 11/02/2018 Status: COMPLETED Source: [facility] 3:53 PM [facility] REPOSITORY HNO ID: [id number] Author: Asia Crews) Indra Service: (none) Author Type: Registered Nurse Type: Progress Notes Filed: 11/02/2018 3:57 PM Note Text: PRIMARY CARE COORDINATION FOLLOW-UP NOTE Provider Action/FYI Pt allowed Saline Nasal [place] per PCP Pt bought Assured Nasal Relief [place], 12 Hour Pump Mist Oxymetazoline HCL (ingrediaent is in Afrin or Dristan) CG asking if pt should use this nasal spray? Please Advise Patient identified by name and date of . YES Spoke to MICHELE Holguin at [facility] Summary: Pt is allowed to use Saline Nasal [place] per PCP. Pt brought in a nasal spray, Assured Nasal Relief [place], 12 Hour Pump Mist Oxymetazoline HCL. Label states if you are diabetic ask your doctor before using it. Savings Teller plan for next outreach: Will follow up as scheduled Signature Asia Burrell RN November 02, 2018 CNPTOUTREACH Observed: 11/02/2018 Status: COMPLETED Source: [facility] 12:00 AM [facility] REPOSITORY Patient Outreach (FAMPWS) BRITTNEE LE ([id number]) 1965 F Date Time Provider Department 11/02/18 ASIA BURRELL (RAMÓN) CHRISTIAN During your visit today, we recorded the following information about you: Asia Burrell RN 11/02/2018 3:57 PM Signed PRIMARY CARE COORDINATION FOLLOW-UP NOTE Provider Action/FYI Pt allowed Saline Nasal [place] per PCP Pt bought Assured Nasal Relief [place], 12 Hour Pump Mist Oxymetazoline HCL (ingrediaent is in Afrin or Dristan) CG asking if pt should use this nasal spray? Please Advise Patient identified by name and date of . YES Spoke to MICHELE Holguin at [facility] Summary: Pt is allowed to use Saline Nasal [place] per PCP. Pt brought in a nasal spray, Assured Nasal Relief [place], 12 Hour Pump Mist Oxymetazoline HCL. Label states if you are diabetic ask your doctor before using it. Savings Teller plan for next outreach: Will follow up as scheduled Signature Asia Burrell RN November 02, 2018 Alma Nuno PA-C 11/03/2018 10:03 AM Signed She should not use on a regular basis. 2-3 days at most. May cause elevated blood sugar and rebound nasal congestion. Use very cautiously. Thanks, DIEGO Charles RN 11/03/2018 10:03 AM Signed PRIMARY CARE COORDINATION FOLLOW-UP NOTE Provider Action/FYI FYI Patient identified by name and date of . YES Spoke to Jono BAUTISTA Summary: Instructed pt can use very cautiously, only 2-3 days in a row, not on a regular basis, because pt can get rebound nasal congestion which will make nasal congestion worse. Also pt can have elevated BS when she uses it so watch and call if BS elevated, verbalized understanding by teachback Savings Teller plan for next outreach: Will follow up 2 weeks Signature Asia Burrell RN November 03, 2018 Allergies As of Date: 11/02/2018 (No Known Allergies) Date Reviewed: 10/02/2018 Reviewed by: Maria A Saldivar LPN - Fully Assessed Reason for Visit: Patient Accounts Coordinator - Patient Initiated [[id number]] Prescriptions as of 11/02/2018 Sig: LANTUS U-100 INSULIN 100 UNIT* Give 28 units subq daily at 4* METFORMIN 500 MG TABLET TAKE 2 TABLETS BY MOUTH TWICE* PRAVASTATIN 20 MG TABLET TAKE 1 TABLET BY MOUTH ONCE D* OMEPRAZOLE 20 MG CAPSULE,PASTORA* Take 1 capsule by mouth daily* SPIRIVA WITH HANDIHALER 18 MC* INHALE CONTENTS OF ONE CAPSUL* COMPOUNDED PRESCRIPTION Consult [facility] Wound Center: lef* BENZONATATE 100 MG CAPSULE Take 1 capsule by mouth three* OMEGA-3 FATTY ACIDS 1,000 MG * Take 1 capsule by mouth once * INSULIN SYRINGE U-100 WITH NE* Use as directed daily FLUTICASONE 100 MCG-VILANTERO* Inhale 1 Inhalation as instru* OLOPATADINE 0.1 % EYE DROPS Use 1 Drop in the left eye tw* COMPOUNDED PRESCRIPTION BIPAP of 09/19 on 3L oxygen pe* GLIPIZIDE 5 MG TABLET TAKE 1 TABLET TWICE A DAY POTASSIUM CHLORIDE ER 20 MEQ * TAKE 1 TABLET BY MOUTH DAILY FERROUS GLUCONATE 324 MG (38 * TAKE 1 TABLET BY MOUTH TWICE * LUBIPROSTONE 24 MCG CAPSULE Take 1 capsule by mouth twice* MILK OF MAGNESIA 400 MG/5 ML * TAKE 15ML BY MOUTH DAILY N* STOOL SOFTENER 100 MG CAPSULE TAKE 1 CAPSULE TWICE A DAY ASPIRIN 325 MG TABLET,DELAYED* Take 1 tablet by mouth once d* ACETAMINOPHEN 500 MG TABLET Take 1 tablet by mouth daily * FUROSEMIDE 20 MG TABLET Take 1 tablet by mouth once d* WHEAT DEXTRIN 3 GRAM/3.8 GRAM* Stir 2 teaspoonfuls into 4-8 * CHOLECALCIFEROL (VITAMIN D3) * Take 1 capsule by mouth once * CLOZAPINE 100 MG TABLET take one tablet at noon, 2 ta* ALBUTEROL SULFATE HFA 90 MCG/* Inhale 2 Puffs as instructed * FLOVENT DISKUS 250 MCG/ACTUAT* INHALE ONE PUFF BY MOUTH TWIC* DESVENLAFAXINE SUCCINATE ER 5* Take 50 mg by mouth once ziggy* LANCETS test BS twice daily 2 days a * RISPERIDONE 2 MG DISINTEGRATI* Take 2 mg by mouth once daily. BLOOD SUGAR DIAGNOSTIC STRIPS test BS twice daily - dx - 25* CLONAZEPAM 1 MG TABLET Take 0.5 mg Bid, 1 mg po at HS PEN NEEDLE, DIABETIC 31 GAUGE* Use one needle per dose. Once* BLOOD-GLUCOSE METER KIT Used once daily to check bloo* * RISPERIDONE MICROSPHERES 50 M* Inject 2 mL intramuscularly e* Problem List As Of Date 11/02/2018 Noted Resolved Schizophreniform disorder, chronic condition (H* More... Other abnormal glucose [R73.09] 04/29/2018 More... DM w/o Complication Type II [E11.9] INVALID FOR*02/22/2014 Gastritis [K29.70] INVALID FOR* Routine general medical examination at a health*INVALID FOR*11/26/2011 Class: Chronic More... Routine gynecological examination [Z01.419] INVALID FOR*11/26/2011 Class: Chronic More... Vitamin D deficiency [E55.9] INVALID FOR* More... Liver Function Test Abnormality [R94.5] INVALID FOR* More... 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 Encounter for screening for malignant neoplasm *INVALID FOR* Postmenopausal bleeding [N95.0] INVALID FOR* More... Acute diastolic CHF (congestive heart failure) *INVALID FOR* More... Obesity, Class II, BMI 35-39.9 [E66.9] INVALID FOR* Pneumonia of both upper lobes due to infectious*INVALID FOR*08/06/2018 H/O open hand wound [Z87.828] INVALID FOR* More... Encounter Status:Closed by ASIA BURRELL on 11/03/18 CBC W/DIFF, AUTOMATED Collected: 10/29/2018 Status: F Source: SILVER 9:23 AM [facility] REPOSITORY TYPE CODE TESTS RESULT OUT OF RANGE REFERENCE UNITS LAB L100.1000 4.4-11.0 K/mm3 Normal WBC 9.8 LAB L100.1200 4.2-5.4 M/mm3 Normal RBC 4.68 LAB L100.1300 12.0-15.0 g/dl Normal HGB 13.6 LAB L100.1400 37-47 % Normal HCT 42.5 LAB L100.1500 81-99 fL Normal MCV 90.8 LAB L100.1600 27.0-32.0 pg Normal MCH 29.1 LAB L100.1700 32-36 g/gl Normal MCHC 32.0 LAB L100.1810 11.6-14.6 % Normal RDW CV 14.3 LAB L100.1820 35.1-43.9 fl High RDW SD 47.4 LAB L100.1900 150-450 K/mm3 Normal PLT 210 LAB L100.2000 6.2-12.0 fl Normal MPV 10.6 LAB L100.2100 47-70 % Normal NEUT% 66.3 LAB L100.2200 19-41 % Normal LY% 27.0 LAB L100.2300 0-10 % Normal MONO% 6.2 LAB L100.2400 0-5 % Normal EO% 0.0 LAB L100.2500 0-1 % Normal BASO% 0.2 LAB L100.2550 0.0-0.9 % Normal IM GRAN % 0.300 Result Comment: IG% - Immature Granulocytes (promyelocytes, myelocytes and metamyelocytes) > 1% indicates that a LEFT SHIFT is Present. LAB L100.2620 2.0-7.7 X10 3/uL Normal Absolute Neut 6.5 LAB L100.2720 0.83-4.51 X10 3/ul Normal Absolute Lymph 2.64 Performed By: #### L100.0100 #### [facility] [address] [place], [place] [address]all brennan. [place], [place], [address] OBSOLETE Observed: 10/26/2018 Status: COMPLETED Source: SAINI 12:00 AM [facility] REPOSITORY [facility] BRITTNEE LE ([id number]) 1965 F Date Time Provider Department 10/26/18 BORIS JONES [facility] During your visit today, we recorded the following information about you: Brandy Mark LPN 10/26/2018 8:31 AM Signed [facility] calling for a new prescription with the change in the Lantus Insulin. 10-23-18 was a med update. Brandy Mark LPN Patient has been identified by name and date of : Yes Pharmacy phones for refill(s): Pending Prescriptions Disp Refills LANTUS U-100 INSULIN 100 UNIT/ML SUBCUTANEOUS SOLUTION 10 mL 11 Sig: Give 28 units subq daily at 4 PM or as directed MIGUELINA: Yes Date of last office visit in primary care: 10/02/18 Last 2 Encounter Wt Readings: Date: Wt: 10/02/2018 90.3 kg (199 lb) 08/12/2018 87.5 kg (193 lb) Previous labs/tests for medication: Diabetes: Hemoglobin A1C (%) Date Value 07/17/2018 7.2 04/30/2018 Test sent to [facility]. Please advise. Thank you. Brandy Mark LPN Allergies As of Date: 10/26/2018 (No Known Allergies) Date Reviewed: 10/02/2018 Reviewed by: Maria A Saldivar LPN - Fully Assessed Visit Diagnosis:Type 2 diabetes mellitus with diabetic nephropathy, with long-term current use of insulin ([facility]) [E11.21, Z79.4] Order(s):LANTUS U-100 INSULIN 100 unit/mL injectionGive 28 units subq daily at 4 PM or as directedDisp: 10 mLRfl: 11 Prescriptions as of 10/26/2018 Sig: LANTUS U-100 INSULIN 100 UNIT* Give 28 units subq daily at 4* METFORMIN 500 MG TABLET TAKE 2 TABLETS BY MOUTH TWICE* PRAVASTATIN 20 MG TABLET TAKE 1 TABLET BY MOUTH ONCE D* OMEPRAZOLE 20 MG CAPSULE,PASTORA* Take 1 capsule by mouth daily* SPIRIVA WITH HANDIHALER 18 MC* INHALE CONTENTS OF ONE CAPSUL* COMPOUNDED PRESCRIPTION Consult [facility] Wound Center: lef* BENZONATATE 100 MG CAPSULE Take 1 capsule by mouth three* OMEGA-3 FATTY ACIDS 1,000 MG * Take 1 capsule by mouth once * INSULIN SYRINGE U-100 WITH NE* Use as directed daily FLUTICASONE 100 MCG-VILANTERO* Inhale 1 Inhalation as instru* OLOPATADINE 0.1 % EYE DROPS Use 1 Drop in the left eye tw* COMPOUNDED PRESCRIPTION BIPAP of 09/19 on 3L oxygen pe* GLIPIZIDE 5 MG TABLET TAKE 1 TABLET TWICE A DAY POTASSIUM CHLORIDE ER 20 MEQ * TAKE 1 TABLET BY MOUTH DAILY FERROUS GLUCONATE 324 MG (38 * TAKE 1 TABLET BY MOUTH TWICE * LUBIPROSTONE 24 MCG CAPSULE Take 1 capsule by mouth twice* MILK OF MAGNESIA 400 MG/5 ML * TAKE 15ML BY MOUTH DAILY N* STOOL SOFTENER 100 MG CAPSULE TAKE 1 CAPSULE TWICE A DAY ASPIRIN 325 MG TABLET,DELAYED* Take 1 tablet by mouth once d* ACETAMINOPHEN 500 MG TABLET Take 1 tablet by mouth daily * FUROSEMIDE 20 MG TABLET Take 1 tablet by mouth once d* WHEAT DEXTRIN 3 GRAM/3.8 GRAM* Stir 2 teaspoonfuls into 4-8 * CHOLECALCIFEROL (VITAMIN D3) * Take 1 capsule by mouth once * CLOZAPINE 100 MG TABLET take one tablet at noon, 2 ta* ALBUTEROL SULFATE HFA 90 MCG/* Inhale 2 Puffs as instructed * FLOVENT DISKUS 250 MCG/ACTUAT* INHALE ONE PUFF BY MOUTH TWIC* DESVENLAFAXINE SUCCINATE ER 5* Take 50 mg by mouth once ziggy* LANCETS test BS twice daily 2 days a * RISPERIDONE 2 MG DISINTEGRATI* Take 2 mg by mouth once daily. BLOOD SUGAR DIAGNOSTIC STRIPS test BS twice daily - dx - 25* CLONAZEPAM 1 MG TABLET Take 0.5 mg Bid, 1 mg po at HS PEN NEEDLE, DIABETIC 31 GAUGE* Use one needle per dose. Once* BLOOD-GLUCOSE METER KIT Used once daily to check bloo* * RISPERIDONE MICROSPHERES 50 M* Inject 2 mL intramuscularly e* Problem List As Of Date 10/26/2018 Noted Resolved Schizophreniform disorder, chronic condition (H* More... Other abnormal glucose [R73.09] 04/29/2018 More... DM w/o Complication Type II [E11.9] INVALID FOR*02/22/2014 Gastritis [K29.70] INVALID FOR* Routine general medical examination at a [facility]*INVALID FOR*11/26/2011 Class: Chronic More... Routine gynecological examination [Z01.419] INVALID FOR*11/26/2011 Class: Chronic More... Vitamin D deficiency [E55.9] INVALID FOR* More... Liver Function Test Abnormality [R94.5] INVALID FOR* More... 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 Encounter for screening for malignant neoplasm *INVALID FOR* Postmenopausal bleeding [N95.0] INVALID FOR* More... Acute diastolic CHF (congestive heart failure) *INVALID FOR* More... Obesity, Class II, BMI 35-39.9 [E66.9] INVALID FOR* Pneumonia of both upper lobes due to infectious*INVALID FOR*08/06/2018 H/O open hand wound [Z87.828] INVALID FOR* More... Prescriptions ordered this encounter Disp Refills Start End LANTUS U-100 INSULIN 100 UNIT/ML SUB* 10 mL 11 10/26/2018 Sig: Give 28 units subq daily at 4 PM or as directed Medications Discontinued During This Encounter LANTUS U-100 INSULIN 100 unit/mL inj* 10 mL 11 10/23/2018 10/26/2018 Class: Med Update Sig: Give 28 units subq daily at 4 PM or as directed Disc: Reason for discontinue is not on file. Encounter Status:Closed by BORIS JONES MD on 10/26/18 PROGRESS Observed: 10/23/2018 Status: COMPLETED Source: BRUCE 4:54 PM [facility] REPOSITORY HNO ID: [id number] Author: Nisha Angelo Ma Service: (none) Author Type: (none) Type: Progress Notes Filed: 10/23/2018 4:55 PM Note Text: Called home and notified of dosage change. Nisha Angelo Ma PROGRESS Observed: 10/23/2018 Status: COMPLETED Source: [place] 4:36 PM [facility] REPOSITORY HNO ID: [id number] Author: Boris Jones Service: (none) Author Type: Physician Type: Progress Notes Filed: 10/23/2018 4:55 PM Note Text: Increase lantus to 28 units a day. Call list of sugars in one week. PROGRESS Observed: 10/22/2018 Status: COMPLETED Source: BRU[place] 12:25 PM [facility] [place] REPOSITORY HNO ID: [id number] Author: Asia (Rn) Indra Service: (none) Author Type: Registered Nurse Type: Progress Notes Filed: 10/22/2018 12:32 PM Note Text: PRIMARY CARE COORDINATION FOLLOW-UP NOTE Provider Action/FYI Please see BS States pt is doing well and feeling good Patient identified by name and date of . YES Spoke to Tsaile at [facility] Summary: Brittnee Le is a 52 year old female who reports glucose readings as noted. DATE 10/22 10/21 10/20 10/19 10/18 10/17 10/16 10/15 Fasting 154 211 170 152 156 172 174 159 4 PM 153 165 210 156 194 128 139 Any low blood sugars during this period of reporting Yes Patient's diabetes medications as follows: LANTUS U-100 INSULIN Give 26 units subq daily at 4 PM or as directed metFORMIN (GLUCOPHAGE) 500 mg TAKE 2 TABLETS BY MOUTH TWICE DAILY WITH MEALS. . glipiZIDE (GLUCOTROL) 5 mg TAKE 1 TABLET TWICE A DAY Savings Teller plan for next outreach: Will follow up one month Signature Asia Burrell RN [facility] Observed: 10/22/2018 Status: COMPLETED Source: BRUCE 12:00 AM [facility] REPOSITORY Patient Outreach ([facility]) BRITTNEE LE ([id number]) 1965 F Date Time Provider Department 10/22/18 ASIA BURRELL (RN) [facility] During your visit today, we recorded the following information about you: Asia Burrell RN 10/22/2018 12:32 PM Signed PRIMARY CARE COORDINATION FOLLOW-UP NOTE Provider Action/FYI Please see BS States pt is doing well and feeling good Patient identified by name and date of . YES Spoke to Mira at [facility] Summary: Brittnee eL is a 52 year old female who reports glucose readings as noted. DATE 10/22 10/21 10/20 10/19 10/18 10/17 10/16 10/15 Fasting 154 211 170 152 156 172 174 159 4 PM 153 165 210 156 194 128 139 Any low blood sugars during this period of reporting Yes Patient's diabetes medications as follows: LANTUS U-100 INSULIN Give 26 units subq daily at 4 PM or as directed metFORMIN (GLUCOPHAGE) 500 mg TAKE 2 TABLETS BY MOUTH TWICE DAILY WITH MEALS. . glipiZIDE (GLUCOTROL) 5 mg TAKE 1 TABLET TWICE A DAY Savings Teller plan for next outreach: Will follow up one month Signature Asia Burrell RN October 22, 2018 Boris Jones MD 10/23/2018 4:55 PM Signed Increase lantus to 28 units a day. Call list of sugars in one week. Nisha Angelo Ma 10/23/2018 4:55 PM Signed Called home and notified of dosage change. 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] Visit Diagnosis:Type 2 diabetes mellitus with diabetic nephropathy, with long-term current use of insulin ([facility]) [E11.21, Z79.4] Order(s):LANTUS U-100 INSULIN 100 unit/mL injectionGive 28 units subq daily at 4 PM or as directedDisp: 10 mLRfl: 11 Prescriptions as of 10/22/2018 Sig: LANTUS U-100 INSULIN 100 UNIT* Give 28 units subq daily at 4* METFORMIN 500 MG TABLET TAKE 2 TABLETS BY MOUTH TWICE* PRAVASTATIN 20 MG TABLET TAKE 1 TABLET BY MOUTH ONCE D* OMEPRAZOLE 20 MG CAPSULE,PASTORA* Take 1 capsule by mouth daily* SPIRIVA WITH HANDIHALER 18 MC* INHALE CONTENTS OF ONE CAPSUL* COMPOUNDED PRESCRIPTION Consult [facility] Wound Center: lef* BENZONATATE 100 MG CAPSULE Take 1 capsule by mouth three* OMEGA-3 FATTY ACIDS 1,000 MG * Take 1 capsule by mouth once * INSULIN SYRINGE U-100 WITH NE* Use as directed daily FLUTICASONE 100 MCG-VILANTERO* Inhale 1 Inhalation as instru* OLOPATADINE 0.1 % EYE DROPS Use 1 Drop in the left eye tw* COMPOUNDED PRESCRIPTION BIPAP of 09/19 on 3L oxygen pe* GLIPIZIDE 5 MG TABLET TAKE 1 TABLET TWICE A DAY POTASSIUM CHLORIDE ER 20 MEQ * TAKE 1 TABLET BY MOUTH DAILY FERROUS GLUCONATE 324 MG (38 * TAKE 1 TABLET BY MOUTH TWICE * LUBIPROSTONE 24 MCG CAPSULE Take 1 capsule by mouth twice* MILK OF MAGNESIA 400 MG/5 ML * TAKE 15ML BY MOUTH DAILY N* STOOL SOFTENER 100 MG CAPSULE TAKE 1 CAPSULE TWICE A DAY ASPIRIN 325 MG TABLET,DELAYED* Take 1 tablet by mouth once d* ACETAMINOPHEN 500 MG TABLET Take 1 tablet by mouth daily * FUROSEMIDE 20 MG TABLET Take 1 tablet by mouth once d* WHEAT DEXTRIN 3 GRAM/3.8 GRAM* Stir 2 teaspoonfuls into 4-8 * CHOLECALCIFEROL (VITAMIN D3) * Take 1 capsule by mouth once * CLOZAPINE 100 MG TABLET take one tablet at noon, 2 ta* ALBUTEROL SULFATE HFA 90 MCG/* Inhale 2 Puffs as instructed * FLOVENT DISKUS 250 MCG/ACTUAT* INHALE ONE PUFF BY MOUTH TWIC* DESVENLAFAXINE SUCCINATE ER 5* Take 50 mg by mouth once ziggy* LANCETS test BS twice daily 2 days a * RISPERIDONE 2 MG DISINTEGRATI* Take 2 mg by mouth once daily. BLOOD SUGAR DIAGNOSTIC STRIPS test BS twice daily - dx - 25* CLONAZEPAM 1 MG TABLET Take 0.5 mg Bid, 1 mg po at HS PEN NEEDLE, DIABETIC 31 GAUGE* Use one needle per dose. Once* BLOOD-GLUCOSE METER KIT Used once daily to check bloo* * RISPERIDONE MICROSPHERES 50 M* Inject 2 mL intramuscularly e* Problem List As Of Date 10/22/2018 Noted Resolved Schizophreniform disorder, chronic condition (H* More... Other abnormal glucose [R73.09] 04/29/2018 More... DM w/o Complication Type II [E11.9] INVALID FOR*02/22/2014 Gastritis [K29.70] INVALID FOR* Routine general medical examination at a [facility]*INVALID FOR*11/26/2011 Class: Chronic More... Routine gynecological examination [Z01.419] INVALID FOR*11/26/2011 Class: Chronic More... Vitamin D deficiency [E55.9] INVALID FOR* More... Liver Function Test Abnormality [R94.5] INVALID FOR* More... 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 Encounter for screening for malignant neoplasm *INVALID FOR* Postmenopausal bleeding [N95.0] INVALID FOR* More... Acute diastolic CHF (congestive heart failure) *INVALID FOR* More... Obesity, Class II, BMI 35-39.9 [E66.9] INVALID FOR* Pneumonia of both upper lobes due to infectious*INVALID FOR*08/06/2018 H/O open hand wound [Z87.828] INVALID FOR* More... Prescriptions ordered this encounter Disp Refills Start End LANTUS U-100 INSULIN 100 UNIT/ML SUB* 10 mL 11 10/23/2018 Class: Med Update Sig: Give 28 units subq daily at 4 PM or as directed Medications Discontinued During This Encounter LANTUS U-100 INSULIN 100 unit/mL inj* 10 mL 11 10/16/2018 10/23/2018 Class: Med Update Sig: Give 26 units subq daily at 4 PM or as directed Disc: Adjust Sig - Block E-Cancel Encounter Status:Closed by NISHA ANGELO MA on 10/23/18 PROGRESS Observed: 10/16/2018 Status: COMPLETED Source: SAINI 10:39 AM [facility] REPOSITORY HNO ID: [id number] Author: Tonie Aguilar Ma Service: (none) Author Type: (none) Type: Progress Notes Filed: 10/16/2018 10:41 AM Note Text: Shereen was notified and given pcp message Called new rx into [facility] as requested by nurse for patient. Tonie Aguilar Ma PROGRESS Observed: 10/16/2018 Status: COMPLETED Source: SAINI 10:27 AM [facility] REPOSITORY HNO ID: [id number] Author: Boris Jones Service: (none) Author Type: Physician Type: Progress Notes Filed: 10/16/2018 10:41 AM Note Text: Change lantus to 26 units a day and call list in one week PROGRESS Observed: 10/16/2018 Status: COMPLETED Source: BRUCE 10:01 AM [facility] REPOSITORY HNO ID: [id number] Author: Asia Crews) Indra Service: (none) Author Type: Registered Nurse Type: Progress Notes Filed: 10/16/2018 10:08 AM Note Text: PRIMARY CARE COORDINATION FOLLOW-UP NOTE Provider Action/FYI Please note BS Patient identified by name and date of . YES Spoke to jail Shereen BAUTISTA Summary: Brittnee Le is a 52 year old female who reports glucose readings as noted. DATE 10/16 10/15 10/14 10/13 10/12 Fasting 174 159 179 200 155 4 PM 139 210 192 164 Any low blood sugars during this period of reporting No Patient's diabetes medications as follows: LANTUS U-100 INSULIN Give 24 units subq daily at 4 PM or as directed glipiZIDE (GLUCOTROL) 5 mg TAKE 1 TABLET TWICE A DAY metFORMIN (GLUCOPHAGE) 500 mg TAKE 2 TABLETS BY MOUTH TWICE DAILY WITH MEALS. . Savings Teller plan for next outreach: Will follow up Signature Asia Burrell RN October 16, 2018 [facility]ed: 10/16/2018 Status: COMPLETED Source: BRUCE 12:00 AM [facility] REPOSITORY Patient Outreach ([facility]) REYBRITTNEE ([id number]) 1965 F Date Time Provider Department 10/16/18 ASIA BURRELL (RAMÓN) [facility] During your visit today, we recorded the following information about you: Asia Burrell RN 10/16/2018 10:08 AM Signed PRIMARY CARE COORDINATION FOLLOW-UP NOTE Provider Action/FYI Please note BS Patient identified by name and date of . YES Spoke to jail Shereen BAUTISTA Summary: Brittnee Le is a 52 year old female who reports glucose readings as noted. DATE 10/16 10/15 10/14 10/13 10/12 Fasting 174 159 179 200 155 4 PM 139 210 192 164 Any low blood sugars during this period of reporting No Patient's diabetes medications as follows: LANTUS U-100 INSULIN Give 24 units subq daily at 4 PM or as directed glipiZIDE (GLUCOTROL) 5 mg TAKE 1 TABLET TWICE A DAY metFORMIN (GLUCOPHAGE) 500 mg TAKE 2 TABLETS BY MOUTH TWICE DAILY WITH MEALS. . Savings Teller plan for next outreach: Will follow up Signature Asia Burrell RN October 16, 2018 Boris Jones MD 10/16/2018 10:41 AM Signed Change lantus to 26 units a day and call list in one week Tonie Aguilar Ma 10/16/2018 10:41 AM Signed Shereen was notified and given pcp message Called new rx into [facility] as requested by nurse for patient. 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 [3615] Visit Diagnosis:Type 2 diabetes mellitus with diabetic nephropathy, with long-term current use of insulin ([facility]) [E11.21, Z79.4] Order(s):LANTUS U-100 INSULIN 100 unit/mL injectionGive 26 units subq daily at 4 PM or as directedDisp: 10 mLRfl: 11 Prescriptions as of 10/16/2018 Sig: LANTUS U-100 INSULIN 100 UNIT* Give 26 units subq daily at 4* METFORMIN 500 MG TABLET TAKE 2 TABLETS BY MOUTH TWICE* PRAVASTATIN 20 MG TABLET TAKE 1 TABLET BY MOUTH ONCE D* OMEPRAZOLE 20 MG CAPSULE,PASTORA* Take 1 capsule by mouth daily* SPIRIVA WITH HANDIHALER 18 MC* INHALE CONTENTS OF ONE CAPSUL* COMPOUNDED PRESCRIPTION Consult [facility] Wound Center: lef* BENZONATATE 100 MG CAPSULE Take 1 capsule by mouth three* OMEGA-3 FATTY ACIDS 1,000 MG * Take 1 capsule by mouth once * INSULIN SYRINGE U-100 WITH NE* Use as directed daily FLUTICASONE 100 MCG-VILANTERO* Inhale 1 Inhalation as instru* OLOPATADINE 0.1 % EYE DROPS Use 1 Drop in the left eye tw* COMPOUNDED PRESCRIPTION BIPAP of 09/19 on 3L oxygen pe* GLIPIZIDE 5 MG TABLET TAKE 1 TABLET TWICE A DAY POTASSIUM CHLORIDE ER 20 MEQ * TAKE 1 TABLET BY MOUTH DAILY FERROUS GLUCONATE 324 MG (38 * TAKE 1 TABLET BY MOUTH TWICE * LUBIPROSTONE 24 MCG CAPSULE Take 1 capsule by mouth twice* MILK OF MAGNESIA 400 MG/5 ML * TAKE 15ML BY MOUTH DAILY N* STOOL SOFTENER 100 MG CAPSULE TAKE 1 CAPSULE TWICE A DAY ASPIRIN 325 MG TABLET,DELAYED* Take 1 tablet by mouth once d* ACETAMINOPHEN 500 MG TABLET Take 1 tablet by mouth daily * FUROSEMIDE 20 MG TABLET Take 1 tablet by mouth once d* WHEAT DEXTRIN 3 GRAM/3.8 GRAM* Stir 2 teaspoonfuls into 4-8 * CHOLECALCIFEROL (VITAMIN D3) * Take 1 capsule by mouth once * CLOZAPINE 100 MG TABLET take one tablet at noon, 2 ta* ALBUTEROL SULFATE HFA 90 MCG/* Inhale 2 Puffs as instructed * FLOVENT DISKUS 250 MCG/ACTUAT* INHALE ONE PUFF BY MOUTH TWIC* DESVENLAFAXINE SUCCINATE ER 5* Take 50 mg by mouth once ziggy* LANCETS test BS twice daily 2 days a * RISPERIDONE 2 MG DISINTEGRATI* Take 2 mg by mouth once daily. BLOOD SUGAR DIAGNOSTIC STRIPS test BS twice daily - dx - 25* CLONAZEPAM 1 MG TABLET Take 0.5 mg Bid, 1 mg po at HS PEN NEEDLE, DIABETIC 31 GAUGE* Use one needle per dose. Once* BLOOD-GLUCOSE METER KIT Used once daily to check bloo* * RISPERIDONE MICROSPHERES 50 M* Inject 2 mL intramuscularly e* Problem List As Of Date 10/16/2018 Noted Resolved Schizophreniform disorder, chronic condition (H* More... Other abnormal glucose [R73.09] 04/29/2018 More... DM w/o Complication Type II [E11.9] INVALID FOR*02/22/2014 Gastritis [K29.70] INVALID FOR* Routine general medical examination at a [facility]*INVALID FOR*11/26/2011 Class: Chronic More... Routine gynecological examination [Z01.419] INVALID FOR*11/26/2011 Class: Chronic More... Vitamin D deficiency [E55.9] INVALID FOR* More... Liver Function Test Abnormality [R94.5] INVALID FOR* More... 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 Encounter for screening for malignant neoplasm *INVALID FOR* Postmenopausal bleeding [N95.0] INVALID FOR* More... Acute diastolic CHF (congestive heart failure) *INVALID FOR* More... Obesity, Class II, BMI 35-39.9 [E66.9] INVALID FOR* Pneumonia of both upper lobes due to infectious*INVALID FOR*08/06/2018 H/O open hand wound [Z87.828] INVALID FOR* More... Prescriptions ordered this encounter Disp Refills Start End LANTUS U-100 INSULIN 100 UNIT/ML SUB* 10 mL 11 10/16/2018 Class: Med Update Sig: Give 26 units subq daily at 4 PM or as directed Medications Discontinued During This Encounter LANTUS U-100 INSULIN 100 unit/mL inj* 10 mL 11 02/06/2018 10/16/2018 Class: Med Update Sig: Give 24 units subq daily at 4 PM or as directed Disc: Reason for discontinue is not on file. Encounter Status:Closed by TONIE AGUILAR MA on 10/16/18 PROGRESS Observed: 10/09/2018 Status: COMPLETED Source: [place] 1:16 PM [facility] REPOSITORY HNO ID: [id number] Author: Boris Jones Service: (none) Author Type: Physician Type: Progress Notes Filed: 10/12/2018 12:53 PM Note Text: Several sugars are higher bu there one pm was 113. Continue same doses. Call list in one week. PROGRESS Observed: 10/09/2018 Status: COMPLETED Source: BRU[place] 1:03 PM [facility] REPOSITORY HNO ID: [id number] Author: Asia PiperRn) Indra Service: (none) Author Type: Registered Nurse Type: Progress Notes Filed: 10/09/2018 1:08 PM Note Text: PRIMARY CARE COORDINATION FOLLOW-UP NOTE Provider Action/FYI Pt's BS 10/09 AM 162 10/08 AM 169 PM 113 10/07 AM 152 PM 186 DM MEDICATIONS: LANTUS U-100 INSULIN Give 24 units subq daily at 4 PM or as directed glipiZIDE (GLUCOTROL) 5 mg 1 TABLET TWICE A DAY metFORMIN (GLUCOPHAGE) 500 mg 2 TABLETS BY MOUTH TWICE DAILY WITH MEALS. . Patient identified by name and date of . YES Summary: Message left by MICHELE Pressley at intermediate. See BS above Savings Teller plan for next outreach: Will follow up 2 weeks Signature Asia Burrell RN October 09, 2018 COMP METABOLIC PANEL Collected: 10/09/2018 Status: F Source: BRUCE 8:35 AM [facility] TYPE CODE TESTS RESULT OUT OF REFERENCE UNITS RANGE LAB TP 6.3-8.0 g/dL Protein, Total 7.1 LAB ALB 3.9-4.9 g/dL Albumin 4.4 LAB CA 8.5-10.2 mg/dL Calcium, Total 9.6 LAB TBIL 0.2-1.3 mg/dL Bilirubin, Total 0.3 LAB ALKP 34-123 U/L Alkaline Phosphatase 107 LAB AST 13-35 U/L AST 21 LAB GLU 74-99 mg/dL Glucose High 166 Result Comment: The [place] [employer] (ADA) provides guidance for cutoff values for fasting glucose and random glucose. The ADA defines fasting as no caloric intake for at least 8 hours. Fas ting plasma glucose results between 100 to 125 mg/dL indicate increased risk for diabetes (prediabetes). Fasting plasma glucose results greater than or equal to 126 mg/dL meet the criteria for diagnosis of diabetes. In the absence of unequivocal hyperglycemia, results should be confirmed by repeat testing. In a patient with classic symptoms of hyperglycemia or hyperglycemic crisis, random plasma glucose results greater than or equal to 200 mg/dL meet the criteria for diagnosis of diabetes. Reference: Standards of Medical Care in Diabetes 2016, [place] [employer]. Diabetes Care. 2016.39(Suppl 1). LAB BUN 7-21 mg/dL BUN 10 LAB CRET 0.58-0.96 mg/dL Creatinine Low 0.54 LAB NA 136-144 mmol/L Sodium 136 LAB K 3.7-5.1 mmol/L Potassium 4.3 LAB CL 97-105 mmol/L Chloride 97 LAB CO2 22-30 mmol/L CO2 24 LAB AGAP 9-18 mmol/L Anion Gap 15 LAB ALT 7-38 U/L ALT 35 LAB GFRAA eGFR- Amer. >60 LAB GFRNAA . eGFR-All Other Races >60 Result Comment: eGFR (Estimated GFR) Units of measure: mL/min/1.73 meters squared eGFR is derived from the reexpressed MDRD Study equation using the following parameters: serum creatinine, age, gender and race. The creatinine assay has been calibrated to be traceable to IDMS. An eGFR <60 mL/min/1.73m2 for >3 months is consistent with chronic kidney disease. Refer to KDOQI guidelines for clinical interpretation. In patients with unstable renal function, e.g. those with acute kidney injury, the eGFR may not accurately reflect actual GFR. Performed By: #### CMP #### [facility] [address] [address] PROGRESS Observed: 10/08/2018 Status: COMPLETED Source: [place] 1:40 PM [facility] REPOSITORY HNO ID: [id number] Author: Asia Crews) Indra Service: (none) Author Type: Registered Nurse Type: Progress Notes Filed: 10/12/2018 12:53 PM Note Text: PRIMARY CARE COORDINATION QUICK NOTE Provider Action/FYI FYI Patient identified by name and date . TC to intermediate, left message to please call PCC back with last 5 days of blood sugars. Asia Burrell RN October 08, 2018 1:41 PM CNPTOUTREACH Observed: 10/08/2018 Status: COMPLETED Source: [place] 12:00 AM [facility] REPOSITORY Patient Outreach ([facility]AMPWS) BRITTNEE LE ([id number]) 1965 F Date Time Provider Department 10/08/18 ASIA BURRELL) REMIWS During your visit today, we recorded the following information about you: Asia Burrell RN 10/12/2018 12:53 PM Signed PRIMARY CARE COORDINATION QUICK NOTE Provider Action/FYI FYI Patient identified by name and date . TC to intermediate, left message to please call PCC back with last 5 days of blood sugars. Asia Burrell RN October 08, 2018 1:41 PM Asia Burrell RN 10/09/2018 1:08 PM Signed PRIMARY CARE COORDINATION FOLLOW-UP NOTE Provider Action/CONTRERAS Pt's BS 10/09 AM 162 10/08 AM 169 PM 113 10/07 AM 152 PM 186 DM MEDICATIONS: LANTUS U-100 INSULIN Give 24 units subq daily at 4 PM or as directed glipiZIDE (GLUCOTROL) 5 mg 1 TABLET TWICE A DAY metFORMIN (GLUCOPHAGE) 500 mg 2 TABLETS BY MOUTH TWICE DAILY WITH MEALS. . Patient identified by name and date of . YES Summary: Message left by MICHELE Pressley at intermediate. 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 Continue same doses. Call list in one week. 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 [3612] Prescriptions as of 10/08/2018 Sig: ACETAMINOPHEN 500 MG TABLET Take 1 tablet by mouth daily * ALBUTEROL SULFATE HFA 90 MCG/* Inhale 2 Puffs as instructed * ASPIRIN 325 MG TABLET,DELAYED* Take 1 tablet by mouth once d* BENZONATATE 100 MG CAPSULE Take 1 capsule by mouth three* BLOOD SUGAR DIAGNOSTIC STRIPS test BS twice daily - dx - 25* BLOOD-GLUCOSE METER KIT Used once daily to check bloo* CHOLECALCIFEROL (VITAMIN D3) * Take 1 capsule by mouth once * CLONAZEPAM 1 MG TABLET Take 0.5 mg Bid, 1 mg po at HS CLOZAPINE 100 MG TABLET take one tablet at noon, 2 ta* COMPOUNDED PRESCRIPTION BIPAP of 09/19 on 3L oxygen pe* COMPOUNDED PRESCRIPTION Consult [facility] Wound Center: lef* DESVENLAFAXINE SUCCINATE ER 5* Take 50 mg by mouth once ziggy* FERROUS GLUCONATE 324 MG (38 * TAKE 1 TABLET BY MOUTH TWICE * FLOVENT DISKUS 250 MCG/ACTUAT* INHALE ONE PUFF BY MOUTH TWIC* FLUTICASONE 100 MCG-VILANTERO* Inhale 1 Inhalation as instru* FUROSEMIDE 20 MG TABLET Take 1 tablet by mouth once d* GLIPIZIDE 5 MG TABLET TAKE 1 TABLET TWICE A DAY PEN NEEDLE, DIABETIC 31 GAUGE* Use one needle per dose. Once* INSULIN SYRINGE U-100 WITH NE* Use as directed daily LANCETS test BS twice daily 2 days a * LANTUS U-100 INSULIN 100 UNIT* Give 24 units subq daily at 4* LUBIPROSTONE 24 MCG CAPSULE Take 1 capsule by mouth twice* METFORMIN 500 MG TABLET TAKE 2 TABLETS BY MOUTH TWICE* MILK OF MAGNESIA 400 MG/5 ML * TAKE 15ML BY MOUTH DAILY N* OLOPATADINE 0.1 % EYE DROPS Use 1 Drop in the left eye tw* OMEGA-3 FATTY ACIDS 1,000 MG * Take 1 capsule by mouth once * OMEPRAZOLE 20 MG CAPSULE,PASTORA* Take 1 capsule by mouth daily* POTASSIUM CHLORIDE ER 20 MEQ * TAKE 1 TABLET BY MOUTH DAILY PRAVASTATIN 20 MG TABLET TAKE 1 TABLET BY MOUTH ONCE D* * RISPERIDONE MICROSPHERES 50 M* Inject 2 mL intramuscularly e* RISPERIDONE 2 MG DISINTEGRATI* Take 2 mg by mouth once daily. SPIRIVA WITH HANDIHALER 18 MC* INHALE CONTENTS OF ONE CAPSUL* STOOL SOFTENER 100 MG CAPSULE TAKE 1 CAPSULE TWICE A DAY WHEAT DEXTRIN 3 GRAM/3.8 GRAM* Stir 2 teaspoonfuls into 4-8 * Problem List As Of Date 10/08/2018 Noted Resolved Schizophreniform disorder, chronic condition (H* More... Other abnormal glucose [R73.09] 04/29/2018 More... DM w/o Complication Type II [E11.9] INVALID FOR*02/22/2014 Gastritis [K29.70] INVALID FOR* Routine general medical examination at a health*INVALID FOR*11/26/2011 Class: Chronic More... Routine gynecological examination [Z01.419] INVALID FOR*11/26/2011 Class: Chronic More... Vitamin D deficiency [E55.9] INVALID FOR* More... Liver Function Test Abnormality [R94.5] INVALID FOR* More... 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 Encounter for screening for malignant neoplasm *INVALID FOR* Postmenopausal bleeding [N95.0] INVALID FOR* More... Acute diastolic CHF (congestive heart failure) *INVALID FOR* More... Obesity, Class II, BMI 35-39.9 [E66.9] INVALID FOR* Pneumonia of both upper lobes due to infectious*INVALID FOR*08/06/2018 H/O open hand wound [Z87.828] INVALID FOR* More... Encounter Status:Closed by ASIA BURRELL on 10/12/18 CBC AND DIFFERENTIAL Collected: 10/02/2018 Status: F Source: [place] 1:39 PM [facility] TYPE CODE TESTS RESULT OUT OF REFERENCE UNITS RANGE LAB WBC 3.70-11.00 k/uL WBC High 11.20 LAB RBC 3.90-5.20 m/uL RBC 4.43 LAB HGB 11.5-15.5 g/dL Hemoglobin 12.8 LAB HCT 36.0-46.0 % Hematocrit 39.7 LAB MCV 80.0-100.0 fL MCV 89.6 LAB MCH 26.0-34.0 pG MCH 28.9 LAB MCHC 30.5-36.0 g/dL MCHC 32.2 LAB RDWCV 11.5-15.0 % RDW-CV 14.4 LAB PLTCT 150-400 k/uL Platelet Count 203 LAB MPV 9.0-12.7 fL MPV 11.2 LAB ANEUT % Neut% 68.1 LAB AANEUT 1.45-7.50 k/uL Abs Neut High 7.63 LAB ALYMP % Lymph% 24.7 LAB AALYMP 1.00-4.00 k/uL Abs Lymph 2.77 LAB AMONO % [place]% 6.8 LAB AAMONO <0.87 k/uL Abs [place] 0.76 LAB AEOS % Eosin% 0.1 LAB AAEOS <0.46 k/uL Abs Eosin <0.03 LAB ABASO % Baso% 0.3 LAB AABASO <0.11 k/uL Abs Baso 0.03 LAB AUNRBC 0 /100 WBC NRBCs 0.0 LAB ABNRBC <0.01 k/uL Absolute nRBC <0.01 LAB DTYP DTYPE Auto Diff Performed By: #### CBCDIF, CMP, LIPA #### [facility] [address] [place], [place] [address] COMP METABOLIC PANEL Collected: 10/02/2018 Status: F Source: [place] 1:39 PM [facility] REPOSITORY TYPE CODE TESTS RESULT OUT OF REFERENCE UNITS RANGE LAB TP 6.3-8.0 g/dL Protein, Total 7.4 LAB ALB 3.9-4.9 g/dL Albumin 4.3 LAB CA 8.5-10.2 mg/dL Calcium, Total 9.3 LAB TBIL 0.2-1.3 mg/dL Bilirubin, Total 0.3 LAB ALKP 34-123 U/L Alkaline Phosphatase 110 LAB AST 13-35 U/L AST 30 LAB GLU 74-99 mg/dL Glucose High 158 Result Comment: The [place] Diabetes [employer] (ADA) provides guidance for cutoff values for fasting glucose and random glucose. The ADA defines fasting as no caloric intake for at least 8 hours. Fas ting plasma glucose results between 100 to 125 mg/dL indicate increased risk for diabetes (prediabetes). Fasting plasma glucose results greater than or equal to 126 mg/dL meet the criteria for diagnosis of diabetes. In the absence of unequivocal hyperglycemia, results should be confirmed by repeat testing. In a patient with classic symptoms of hyperglycemia or hyperglycemic crisis, random plasma glucose results greater than or equal to 200 mg/dL meet the criteria for diagnosis of diabetes. Reference: Standards of Medical Care in Diabetes 2016, [place] [employer]. Diabetes Care. 2016.39(Suppl 1). LAB BUN 7-21 mg/dL Low BUN 6 LAB CRET 0.58-0.96 mg/dL Low Creatinine 0.49 LAB NA 136-144 mmol/L Low Sodium 133 LAB K 3.7-5.1 mmol/L Potassium 4.5 LAB CL 97-105 mmol/L Low Chloride 93 LAB CO2 22-30 mmol/L CO2 24 LAB AGAP 9-18 mmol/L Anion Gap 16 LAB ALT 7-38 U/L ALT High 48 LAB GFRAA eGFR- Amer. >60 LAB GFRNAA . eGFR-All Other Races >60 Result Comment: eGFR (Estimated GFR) Units of measure: mL/min/1.73 meters squared eGFR is derived from the reexpressed MDRD Study equation using the following parameters: serum creatinine, age, gender and race. The creatinine assay has been calibrated to be traceable to IDMS. An eGFR <60 mL/min/1.73m2 for >3 months is consistent with chronic kidney disease. Refer to KDOQI guidelines for clinical interpretation. In patients with unstable renal function, e.g. those with acute kidney injury, the eGFR may not accurately reflect actual GFR. Performed By: #### CBCDIF, CMP, LIPA #### [facility] [employer] [facility] [address] [place], [place] [address] LIPASE Collected: 10/02/2018 Status: F Source: BRU[place] 1:39 PM [facility] REPOSITORY TYPE CODE TESTS RESULT OUT OF REFERENCE UNITS RANGE LAB LIPA 16-61 U/L Lipase 35 Performed By: #### CBCDIF, CMP, LIPA #### [facility] [employer] [facility] [address] [place], [place] [address] XR CHEST 2V FRONTAL/LAT Observed: 10/02/2018 Status: F Source: BRU[place] 1:34 PM [facility] REPOSITORY * * *Final Report* * * DATE OF EXAM: Oct 02 2018 1:34PM WOX [id number] - XR CHEST 2V FRONTAL/LAT / PROCEDURE REASON: Chest pain, unspecified type * * * * Physician Interpretation * * * * XR CHEST 2V FRONTAL/LAT INDICATION: Chest pain, unspecified type 52 years/Female RESULT: The heart size is normal. Linear density left lower lung consistent with atelectasis, scarring. Findings without change compared to chest 08/06/2018. The lung long are clear of infiltrate. No mediastinal or hilar adenopathy. The costophrenic angles are clear. The bony structures are intact IMPRESSION: Scarring/atelectasis left lower lung No alveolar consolidation or pleural effusion 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: PSCB Transcribe Date/Time: Oct 02 2018 6:52P Dictated by : YASMIN MONTELONGO MD This examination was interpreted and the report reviewed and electronically signed by: YASMIN MONTELONGO MD on Oct 02 2018 6:53PM EST [id number] PROGRESS Observed: 10/02/2018 Status: COMPLETED Source: [place] 1:24 PM [facility] REPOSITORY HNO ID: [id number] Author: Jodi Chawla (Rt) [place] Service: (none) Author Type: [employer] Vat Worker Type: Progress Notes Filed: 10/02/2018 1:35 PM Note Text: Radiology Service Progress Note PATIENT NAME: Brittnee Le DATE OF SERVICE: October 02, 2018 TIME: 1:24 PM PATIENT IDENTITY VERIFICATION COMPLETED USING TWO (2) METHODS: Patient confirmed name verbally and Date of . PATIENT GENDER DATA: Female. status: : No status: NO. PATIENT RELEVANT IMPLANT DATA REVIEWED: Not Applicable RADIOLOGY DEPARTMENT: General X-ray: Exam(s) Completed: Chest X-Ray PERIPHERAL IV DATA: Not applicable SIGNED BY: RT Homero October 02, 2018 1:24 PM PROGRESS Observed: 10/02/2018 Status: COMPLETED Source: [place] 12:46 PM [facility] REPOSITORY HNO ID: [id number] Author: Boris Jones Service: (none) Author Type: Physician Type: Progress Notes Filed: 10/02/2018 1:17 PM Note Text: Patient presents with: Cough HPI: Patient presents today for office visit for an acute visit. Nursing Notes: Maria A Saldivar LPN 10/02/2018 12:44 PM Signed States that pain in stomach. No more vomiting today. Points to epigastric area and says that is where it hurts. Told 2nd shirt last night that she had chest pain all day. Cough is nonproductive. Threw up three days ago several times. Had decreased appetite. No coffee ground emesis. Has been nauseated. No diarrhea. Just soft stools No fever. No dysuria or frequency. Not eaten much the last few days. Sugars have been ok. Lowest sugars was 97. Has discomfort in epigastric area that she describes as heartburn. Worsened after eating. No chest pain with exertion. Has had some mild cough. Today is eating better than what she has been. No swelling or shortness of breath. No black or bloody stools. MEDICATIONS: Current Outpatient Prescriptions: acetaminophen (TYLENOL EXTRA STRENGTH) 500 mg tablet Take 1 tablet by mouth daily at bedtime. albuterol HFA (VENTOLIN HFA) 90 mcg/actuation inhaler Inhale 2 Puffs as instructed every 4 hours as needed for Wheezing/Shortness of Breath. aspirin, enteric coated (ASPIRIN, ENTERIC COATED) 325 mg EC tablet Take 1 tablet by mouth once daily. Take with food. benzonatate (TESSALON PERLE) 100 mg capsule Take 1 capsule by mouth three times daily as needed for Cough. blood sugar diagnostic (FREESTYLE LITE STRIPS) test strip test BS twice daily - dx - 250.00 -insulin Yes Blood-Glucose Meter (FREESTYLE LITE METER) monitoring kit Used once daily to check blood sugar. 250.00 Cholecalciferol, Vitamin D3, 1,000 unit cap Take 1 capsule by mouth once daily. clonazePAM (KLONOPIN) 1 mg tablet Take 0.5 mg Bid, 1 mg po at HS cloZAPine (CLOZARIL) 100 mg tablet take one tablet at noon, 2 tablets at 3 PM and 3 tablets at Bedtime COMPOUNDED PRESCRIPTION BIPAP of /8 on 3L oxygen per Dr. 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 Ferrous Gluconate (FERGON) 324 mg (38 mg iron) tablet TAKE 1 TABLET BY MOUTH TWICE A DAY WITH MEALS. FLOVENT DISKUS 250 mcg/actuation dsdv INHALE ONE PUFF BY MOUTH TWICE DAILY DIRECTED fluticasone-vilanterol (BREO ELLIPTA) 100-25 mcg/dose inhaler Inhale 1 Inhalation as instructed once daily. Per Dr. Ramirez furosemide (LASIX) 20 mg tablet Take 1 tablet by mouth once daily. glipiZIDE (GLUCOTROL) 5 mg tablet TAKE 1 TABLET TWICE A DAY insulin needles, DISPOSABLE, (PEN NEEDLE) 31 X 5/16 ndle Use one needle per dose. Once per day. Insulin Syringe-Needle U-100 (BD INSULIN SYRINGE) 1 mL 28 gauge x 1/2 syrg Use as directed daily Lancets lancets test BS twice daily 2 days a week- dx 250.00 - non-insulin LANTUS U-100 INSULIN 100 unit/mL injection Give 24 units subq daily at 4 PM or as directed lubiprostone (AMITIZA) 24 mcg capsule Take 1 capsule by mouth twice daily with meals. metFORMIN (GLUCOPHAGE) 500 mg tablet TAKE 2 TABLETS BY MOUTH TWICE DAILY WITH MEALS. . MILK OF MAGNESIA 400 mg/5 mL suspension TAKE 15ML BY MOUTH DAILY NEEDED FOR CONSTIPATION (FOR NO BOWEL MOVEMENT AFTER 3 olopatadine (PATANOL) 0.1 % ophthalmic solution Use 1 Drop in the left eye twice daily as needed. Per Dr. Alvarenga omega-3 fatty acids (FISH OIL CONCENTRATE) 1,000 mg cap Take 1 capsule by mouth once daily. potassium chloride ER (K-DUR, KLOR-CON) 20 mEq tablet TAKE 1 TABLET BY MOUTH DAILY pravastatin (PRAVACHOL) 20 mg tablet TAKE 1 TABLET BY MOUTH ONCE DAILY. risperidone (RISPERDAL CONSTA) 50 mg/2 mL INTRAMUSC. injection Inject 2 mL intramuscularly every 2 weeks. risperiDONE orally disintegrating (RISPERDAL M) 2 mg disintegrating tablet Take 2 mg by mouth once daily. SPIRIVA WITH HANDIHALER 18 mcg inhalation capsule INHALE CONTENTS OF ONE CAPSULE DAILY USING HANDIHALER DEVICE STOOL SOFTENER 100 mg capsule TAKE 1 CAPSULE TWICE A DAY wheat dextrin (BENEFIBER SUGAR FREE, DEXTRIN,) 3 gram/3.8 gram powd Stir 2 teaspoonfuls into 4-8 oz of beverage or soft food daily No current facility-administered medications for this visit. ALLERGIES: ALLERGIES No Known Allergies PAST MEDICAL HISTORY Diagnosis Date - Bilateral pneumonia 07/23/2018 Admit [facility]: pneumococcal suspected, neg culture. 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, pt was on metformin for a while but taken off - pt never told if she had DM or not - Major depressive disorder, recurrent episode, unspecified - Nonspecific elevation of levels of transaminase or lactic acid dehydrogenase (LDH) - LIDA (obstructive sleep apnea) - Pneumonia - Schizophreniform disorder, chronic condition (HCC) - Simple endometrial hyperplasia without atypia mirena IUD 01/2011 PAST SURGICAL HISTORY Procedure Laterality Date - COLONOSCOPY W/BX 12/19/2016 Normal colonoscopy-10 year follow-up - PAST SURGICAL HISTORY OF 1982 corrective jaw surgery - REMOVAL GALLBLADDER 1998 open FAMILY HISTORY Problem Relation Age of Onset - Psychiatry Mother depression - other (lung cancer) Paternal Grandfather - Psychiatry Brother schizophrenia - Diabetes Brother - Hypertension Brother - Psychiatry Sister deperssion Social History Marital status: Single Spouse name: Years of education: 14 Number of children: 0 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 REVIEW OF SYSTEMS All other reviewed and negative other than HPI. HEALTH MAINTENANCE: Reviewed health maintenance issues today and recommended the following in detail. HPV EVERY 5 YEARS due on 10/03/2014 VITALS: BP 112/82 Pulse 111 Temp 36.6 ?C (97.8 ?F) (Tympanic) Wt 90.3 kg (199 lb) LMP 09/12/2017 SpO2 92% BMI 37.60 kg/m? Last 4 Encounter Wt Readings: Date: Wt: 10/02/2018 90.3 kg (199 lb) 08/12/2018 87.5 kg (193 lb) 08/06/2018 85.3 kg (188 lb) 07/20/2018 86.2 kg (190 lb) PHYSICAL EXAMINATION: General appearance: Well appearing, alert, in no acute distress, well-hydrated, well nourished. Skin: Skin color, texture, turgor normal, no suspicious rashes or lesions Head: Normocephalic, no masses, lesions, tenderness or abnormalities Oropharynx: moist mucous membranes. Neck: Negative findings: no adenopathy Lungs: lungs clear to auscultation. No wheezing, rhonchi, rales Heart: RRR without murmur, gallop, or rubs. No ectopy Abdomen: Negative findings: no masses palpable, no organomegaly, no bruits heard, soft, non-tender, spleen non-palpable and aorta normal, Positive findings: hyperactive bowel sounds. Extremities: No deformities, edema, skin discoloration, clubbing or cyanosis. Good capillary refill. ASSESSMENT/PLAN: 1. Chest pain, unspecified type - ICD9: 786.50, ICD10: R07.9 (primary diagnosis) - suspect is gi related. Add meds. Check labs do chest xray. To er if worsens. Recheck in two weeks. - ECG COMPLETE W INTERPRETATION 2. GERD without esophagitis - ICD9: 530.81, ICD10: K21.9 - add meds. 3. Gastroenteritis - ICD9: 558.9, ICD10: K52.9 - fluids and light diet. Call if worsens 4. Type 2 diabetes mellitus with diabetic nephropathy, unspecified whether half-way insulin use (HCC) - ICD9: 250.40, 583.81, ICD10: E11.21 - discussed sick day rules. 5. Epigastric pain - ICD9: 789.06, ICD10: R10.13 - as above. Boris Jones MD RTO in two weeks and prn. CNOV Observed: 10/02/2018 Status: COMPLETED Source: [place] 12:40 PM [facility] REPOSITORY [facility] BRITTNEE LE ([id number]) 1965 F Date Time Provider Department 10/02/18 12:40 [facility] During your visit today, we recorded the following information about you: Temperature Pulse Blood pressure Weight 97.8 degrees 111/minute 112/82 90.3 kg Maria A Yariel CANO 10/02/2018 12:44 PM Signed States that pain in stomach. No more vomiting today. Points to epigastric area and says that is where it hurts. Told 2nd shirt last night that she had chest pain all day. Cough is nonproductive. Boris Jones MD 10/02/2018 1:17 PM Signed Patient presents with: Cough HPI: Patient presents today for office visit for an acute visit. Nursing Notes: Maria A Yariel CANO 10/02/2018 12:44 PM Signed States that pain in stomach. No more vomiting today. Points to epigastric area and says that is where it hurts. Told 2nd shirt last night that she had chest pain all day. Cough is nonproductive. Threw up three days ago several times. Had decreased appetite. No coffee ground emesis. Has been nauseated. No diarrhea. Just soft stools No fever. No dysuria or frequency. Not eaten much the last few days. Sugars have been ok. Lowest sugars was 97. Has discomfort in epigastric area that she describes as heartburn. Worsened after eating. No chest pain with exertion. Has had some mild cough. Today is eating better than what she has been. No swelling or shortness of breath. No black or bloody stools. MEDICATIONS: Current Outpatient Prescriptions: acetaminophen (TYLENOL EXTRA STRENGTH) 500 mg tablet Take 1 tablet by mouth daily at bedtime. albuterol HFA (VENTOLIN HFA) 90 mcg/actuation inhaler Inhale 2 Puffs as instructed every 4 hours as needed for Wheezing/Shortness of Breath. aspirin, enteric coated (ASPIRIN, ENTERIC COATED) 325 mg EC tablet Take 1 tablet by mouth once daily. Take with food. benzonatate (TESSALON PERLE) 100 mg capsule Take 1 capsule by mouth three times daily as needed for Cough. blood sugar diagnostic (FREESTYLE LITE STRIPS) test strip test BS twice daily - dx - 250.00 -insulin Yes Blood-Glucose Meter (FREESTYLE LITE METER) monitoring kit Used once daily to check blood sugar. 250.00 Cholecalciferol, Vitamin D3, 1,000 unit cap Take 1 capsule by mouth once daily. clonazePAM (KLONOPIN) 1 mg tablet Take 0.5 mg Bid, 1 mg po at HS cloZAPine (CLOZARIL) 100 mg tablet take one tablet at noon, 2 tablets at 3 PM and 3 tablets at Bedtime COMPOUNDED PRESCRIPTION BIPAP of 8 on 3L oxygen per Dr[address] Ramirez COMPOUNDED PRESCRIPTION Consult [facility] Wound Center: left thumb webspace tear, granular tissue, swelling left [id number] Open wound of left hand with complication, initial encounter (primary encounter diagnosis)J13 Pneumonia of right upper lobe due to Streptococcus pneumoniae (HCC)E11.21 Type 2 diabetes mellitus with diabetic nephropathy, unspecified whether half-way insulin use ([facility]) desvenlafaxine ER (PRISTIQ) 50 mg 24 hr tablet Take 50 mg by mouth once daily. Ferrous Gluconate (FERGON) 324 mg (38 mg iron) tablet TAKE 1 TABLET BY MOUTH TWICE A DAY WITH MEALS. FLOVENT DISKUS 250 mcg/actuation dsdv INHALE ONE PUFF BY MOUTH TWICE DAILY DIRECTED fluticasone-vilanterol (BREO ELLIPTA) 100-25 mcg/dose inhaler Inhale 1 Inhalation as instructed once daily. Per Dr. Ramirez furosemide (LASIX) 20 mg tablet Take 1 tablet by mouth once daily. glipiZIDE (GLUCOTROL) 5 mg tablet TAKE 1 TABLET TWICE A DAY insulin needles, DISPOSABLE, (PEN NEEDLE) 31 X 5/16 ndle Use one needle per dose. Once per day. Insulin Syringe-Needle U-100 (BD INSULIN SYRINGE) 1 mL 28 gauge x 1/2 syrg Use as directed daily Lancets lancets test BS twice daily 2 days a week- dx 250.00 - non-insulin LANTUS U-100 INSULIN 100 unit/mL injection Give 24 units subq daily at 4 PM or as directed lubiprostone (AMITIZA) 24 mcg capsule Take 1 capsule by mouth twice daily with meals. metFORMIN (GLUCOPHAGE) 500 mg tablet TAKE 2 TABLETS BY MOUTH TWICE DAILY WITH MEALS. . MILK OF MAGNESIA 400 mg/5 mL suspension TAKE 15ML BY MOUTH DAILY NEEDED FOR CONSTIPATION (FOR NO BOWEL MOVEMENT AFTER 3 olopatadine (PATANOL) 0.1 % ophthalmic solution Use 1 Drop in the left eye twice daily as needed. Per Dr. Alvarenga omega-3 fatty acids (FISH OIL CONCENTRATE) 1,000 mg cap Take 1 capsule by mouth once daily. potassium chloride ER (K-DUR, KLOR-CON) 20 mEq tablet TAKE 1 TABLET BY MOUTH DAILY pravastatin (PRAVACHOL) 20 mg tablet TAKE 1 TABLET BY MOUTH ONCE DAILY. risperidone (RISPERDAL CONSTA) 50 mg/2 mL INTRAMUSC. injection Inject 2 mL intramuscularly every 2 weeks. risperiDONE orally disintegrating (RISPERDAL M) 2 mg disintegrating tablet Take 2 mg by mouth once daily. SPIRIVA WITH HANDIHALER 18 mcg inhalation capsule INHALE CONTENTS OF ONE CAPSULE DAILY USING HANDIHALER DEVICE STOOL SOFTENER 100 mg capsule TAKE 1 CAPSULE TWICE A DAY wheat dextrin (BENEFIBER SUGAR FREE, DEXTRIN,) 3 gram/3.8 gram powd Stir 2 teaspoonfuls into 4-8 oz of beverage or soft food daily No current facility-administered medications for this visit. ALLERGIES: ALLERGIES No Known Allergies PAST MEDICAL HISTORY Diagnosis Date - Bilateral pneumonia 07/23/2018 Admit [facility]: pneumococcal suspected, neg culture. 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, pt was on metformin for a while but taken off - pt never told if she had DM or not - Major depressive disorder, recurrent episode, unspecified - Nonspecific elevation of levels of transaminase or lactic acid dehydrogenase (LDH) - LIDA (obstructive sleep apnea) - Pneumonia - Schizophreniform disorder, chronic condition (HCC) - Simple endometrial hyperplasia without atypia mirena IUD 01/2011 PAST SURGICAL HISTORY Procedure Laterality Date - COLONOSCOPY W/BX 12/19/2016 Normal colonoscopy-10 year follow-up - PAST SURGICAL HISTORY OF 1982 corrective jaw surgery - REMOVAL GALLBLADDER 1998 open FAMILY HISTORY Problem Relation Age of Onset - Psychiatry Mother depression - other (lung cancer) Paternal Grandfather - Psychiatry Brother schizophrenia - Diabetes Brother - Hypertension Brother - Psychiatry Sister deperssion Social History Marital status: Single Spouse name: Years of education: 14 Number of children: 0 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 REVIEW OF SYSTEMS All other reviewed and negative other than HPI. HEALTH MAINTENANCE: Reviewed health maintenance issues today and recommended the following in detail. HPV EVERY 5 YEARS due on 10/03/2014 VITALS: BP 112/82 Pulse 111 Temp 36.6 ?C (97.8 ?F) (Tympanic) Wt 90.3 kg (199 lb) LMP 09/12/2017 SpO2 92% BMI 37.60 kg/m? Last 4 Encounter Wt Readings: Date: Wt: 10/02/2018 90.3 kg (199 lb) 08/12/2018 87.5 kg (193 lb) 08/06/2018 85.3 kg (188 lb) 07/20/2018 86.2 kg (190 lb) PHYSICAL EXAMINATION: General appearance: Well appearing, alert, in no acute distress, well-hydrated, well nourished. Skin: Skin color, texture, turgor normal, no suspicious rashes or lesions Head: Normocephalic, no masses, lesions, tenderness or abnormalities Oropharynx: moist mucous membranes. Neck: Negative findings: no adenopathy Lungs: lungs clear to auscultation. No wheezing, rhonchi, rales Heart: RRR without murmur, gallop, or rubs. No ectopy Abdomen: Negative findings: no masses palpable, no organomegaly, no bruits heard, soft, non-tender, spleen non-palpable and aorta normal, Positive findings: hyperactive bowel sounds. Extremities: No deformities, edema, skin discoloration, clubbing or cyanosis. Good capillary refill. ASSESSMENT/PLAN: 1. Chest pain, unspecified type - ICD9: 786.50, ICD10: R07.9 (primary diagnosis) - suspect is gi related. Add meds. Check labs do chest xray. To er if worsens. Recheck in two weeks. - ECG COMPLETE W INTERPRETATION 2. GERD without esophagitis - ICD9: 530.81, ICD10: K21.9 - add meds. 3. Gastroenteritis - ICD9: 558.9, ICD10: K52.9 - fluids and light diet. Call if worsens 4. Type 2 diabetes mellitus with diabetic nephropathy, unspecified whether half-way insulin use (HCC) - ICD9: 250.40, 583.81, ICD10: E11.21 - discussed sick day rules. 5. Epigastric pain - ICD9: 789.06, ICD10: R10.13 - as above. Boris Jones MD RTO in two weeks and prn. 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 1/2 hr before meal.Disp: 30 capsuleRfl: 1 CBC + DIFF [SQCBCDIF] Order #: [id number] FUTURE COMP METABOLIC PANEL [SQCMP] Order #: [id number] FUTURE LIPASE BLD [SQLIPA] Order #: [id number] FUTURE XR CHEST 2V FRONTAL/LAT [[id number]] Order #: [id number] FUTURE Prescriptions as of 10/02/2018 Sig: ACETAMINOPHEN 500 MG TABLET Take 1 tablet by mouth daily * ALBUTEROL SULFATE HFA 90 MCG/* Inhale 2 Puffs as instructed * ASPIRIN 325 MG TABLET,DELAYED* Take 1 tablet by mouth once d* BENZONATATE 100 MG CAPSULE Take 1 capsule by mouth three* BLOOD SUGAR DIAGNOSTIC STRIPS test BS twice daily - dx - 25* BLOOD-GLUCOSE METER KIT Used once daily to check bloo* CHOLECALCIFEROL (VITAMIN D3) * Take 1 capsule by mouth once * CLONAZEPAM 1 MG TABLET Take 0.5 mg Bid, 1 mg po at HS CLOZAPINE 100 MG TABLET take one tablet at noon, 2 ta* COMPOUNDED PRESCRIPTION BIPAP of 09/19 on 3L oxygen pe* COMPOUNDED PRESCRIPTION Consult [facility] Wound Center: lef* DESVENLAFAXINE SUCCINATE ER 5* Take 50 mg by mouth once ziggy* FERROUS GLUCONATE 324 MG (38 * TAKE 1 TABLET BY MOUTH TWICE * FLOVENT DISKUS 250 MCG/ACTUAT* INHALE ONE PUFF BY MOUTH TWIC* FLUTICASONE 100 MCG-VILANTERO* Inhale 1 Inhalation as instru* FUROSEMIDE 20 MG TABLET Take 1 tablet by mouth once d* GLIPIZIDE 5 MG TABLET TAKE 1 TABLET TWICE A DAY PEN NEEDLE, DIABETIC 31 GAUGE* Use one needle per dose. Once* INSULIN SYRINGE U-100 WITH NE* Use as directed daily LANCETS test BS twice daily 2 days a * LANTUS U-100 INSULIN 100 UNIT* Give 24 units subq daily at 4* LUBIPROSTONE 24 MCG CAPSULE Take 1 capsule by mouth twice* METFORMIN 500 MG TABLET TAKE 2 TABLETS BY MOUTH TWICE* MILK OF MAGNESIA 400 MG/5 ML * TAKE 15ML BY MOUTH DAILY N* OLOPATADINE 0.1 % EYE DROPS Use 1 Drop in the left eye tw* OMEGA-3 FATTY ACIDS 1,000 MG * Take 1 capsule by mouth once * OMEPRAZOLE 20 MG CAPSULE,PASTORA* Take 1 capsule by mouth daily* POTASSIUM CHLORIDE ER 20 MEQ * TAKE 1 TABLET BY MOUTH DAILY PRAVASTATIN 20 MG TABLET TAKE 1 TABLET BY MOUTH ONCE D* * RISPERIDONE MICROSPHERES 50 M* Inject 2 mL intramuscularly e* RISPERIDONE 2 MG DISINTEGRATI* Take 2 mg by mouth once daily. SPIRIVA WITH HANDIHALER 18 MC* INHALE CONTENTS OF ONE CAPSUL* STOOL SOFTENER 100 MG CAPSULE TAKE 1 CAPSULE TWICE A DAY WHEAT DEXTRIN 3 GRAM/3.8 GRAM* Stir 2 teaspoonfuls into 4-8 * Problem List As Of Date 10/02/2018 Noted Resolved Schizophreniform disorder, chronic condition (H* More... Other abnormal glucose [R73.09] 04/29/2018 More... DM w/o Complication Type II [E11.9] INVALID FOR*02/22/2014 Gastritis [K29.70] INVALID FOR* Routine general medical examination at a [facility]*INVALID FOR*11/26/2011 Class: Chronic More... Routine gynecological examination [Z01.419] INVALID FOR*11/26/2011 Class: Chronic More... Vitamin D deficiency [E55.9] INVALID FOR* More... Liver Function Test Abnormality [R94.5] INVALID FOR* More... 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 Encounter for screening for malignant neoplasm *INVALID FOR* Postmenopausal bleeding [N95.0] INVALID FOR* More... Acute diastolic CHF (congestive heart failure) *INVALID FOR* More... Obesity, Class II, BMI 35-39.9 [E66.9] INVALID FOR* Pneumonia of both upper lobes due to infectious*INVALID FOR*08/06/2018 H/O open hand wound [Z87.828] INVALID FOR* More... Visit Notes: >> Maria A Runkle AUTO SERVICE ADVISOR FriOct 02, 2018 12:40 PM Status: Signed States that pain in stomach. No more vomiting today. Points to epigastric area and says that is where it hurts. Told 2nd shirt last night that she had chest pain all day. Cough is nonproductive. Prescriptions ordered this encounter Disp Refills Start End OMEPRAZOLE 20 MG CAPSULE,DELAYED REL* 30 c* 1 10/02/2018 Route: ORAL Sig: Take 1 capsule by mouth daily before breakfast. 1/2 hr before meal. Disposition: Return in about 2 weeks (around 10/16/2018). Follow-up and Disposition History Recorded Encounter Status:Closed by BORIS JONES MD on 10/02/18 PROGRESS Observed: 10/02/2018 Status: COMPLETED Source: [place] 10:51 AM [facility] REPOSITORY HNO ID: [id number] Author: Asia (Ramón) Indra Service: (none) Author Type: Registered Nurse Type: Progress Notes Filed: 10/02/2018 10:54 AM Note Text: PRIMARY CARE COORDINATION FOLLOW-UP NOTE Provider Action/FYI Pt coming in to walk in hours today for vomiting several days ago, poor appetite and lethargic per CG Patient identified by name and date of . YES Summary: TC from Leola Mckeon, left message pt isn't eating well, is lethargic and had some low BS that came back up to normal. CG will bring pt in this afternoon. TC to [facility], left message to please call PCC back re: how pt is feeling. Savings Teller plan for next outreach: Will follow up one week Signature Asia Burrell RN October 02, 2018 CNPTOUTREACH Observed: 10/02/2018 Status: COMPLETED Source: [place] 12:00 AM [facility] REPOSITORY Patient Outreach (FAMPWS) BRITTNEE LE ([id number]) 1965 F Date Time Provider Department 10/02/18 ASIA BURRELL (RN) CHRISTIAN During your visit today, we recorded the following information about you: Asia Burrell RN 10/02/2018 10:54 AM Signed PRIMARY CARE COORDINATION FOLLOW-UP NOTE Provider Action/FYI Pt coming in to walk in hours today for vomiting several days ago, poor appetite and lethargic per CG Patient identified by name and date of . YES Summary: TC from [facility] Mckeon, left message pt isn't eating well, is lethargic and had some low BS that came back up to normal. CG will bring pt in this afternoon. TC to [facility], left message to please call PCC back re: how pt is feeling. 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 [5002] Prescriptions as of 10/02/2018 Sig: ACETAMINOPHEN 500 MG TABLET Take 1 tablet by mouth daily * ALBUTEROL SULFATE HFA 90 MCG/* Inhale 2 Puffs as instructed * ASPIRIN 325 MG TABLET,DELAYED* Take 1 tablet by mouth once d* BENZONATATE 100 MG CAPSULE Take 1 capsule by mouth three* BLOOD SUGAR DIAGNOSTIC STRIPS test BS twice daily - dx - 25* BLOOD-GLUCOSE METER KIT Used once daily to check bloo* CHOLECALCIFEROL (VITAMIN D3) * Take 1 capsule by mouth once * CLONAZEPAM 1 MG TABLET Take 0.5 mg Bid, 1 mg po at HS CLOZAPINE 100 MG TABLET take one tablet at noon, 2 ta* COMPOUNDED PRESCRIPTION BIPAP of 09/19 on 3L oxygen pe* COMPOUNDED PRESCRIPTION Consult [facility] Wound Center: lef* DESVENLAFAXINE SUCCINATE ER 5* Take 50 mg by mouth once ziggy* FERROUS GLUCONATE 324 MG (38 * TAKE 1 TABLET BY MOUTH TWICE * FLOVENT DISKUS 250 MCG/ACTUAT* INHALE ONE PUFF BY MOUTH TWIC* FLUTICASONE 100 MCG-VILANTERO* Inhale 1 Inhalation as instru* FUROSEMIDE 20 MG TABLET Take 1 tablet by mouth once d* GLIPIZIDE 5 MG TABLET TAKE 1 TABLET TWICE A DAY PEN NEEDLE, DIABETIC 31 GAUGE* Use one needle per dose. Once* INSULIN SYRINGE U-100 WITH NE* Use as directed daily LANCETS test BS twice daily 2 days a * LANTUS U-100 INSULIN 100 UNIT* Give 24 units subq daily at 4* LUBIPROSTONE 24 MCG CAPSULE Take 1 capsule by mouth twice* METFORMIN 500 MG TABLET TAKE 2 TABLETS BY MOUTH TWICE* MILK OF MAGNESIA 400 MG/5 ML * TAKE 15ML BY MOUTH DAILY N* OLOPATADINE 0.1 % EYE DROPS Use 1 Drop in the left eye tw* OMEGA-3 FATTY ACIDS 1,000 MG * Take 1 capsule by mouth once * OMEPRAZOLE 20 MG CAPSULE,PASTORA* Take 1 capsule by mouth daily* POTASSIUM CHLORIDE ER 20 MEQ * TAKE 1 TABLET BY MOUTH DAILY PRAVASTATIN 20 MG TABLET TAKE 1 TABLET BY MOUTH ONCE D* * RISPERIDONE MICROSPHERES 50 M* Inject 2 mL intramuscularly e* RISPERIDONE 2 MG DISINTEGRATI* Take 2 mg by mouth once daily. SPIRIVA WITH HANDIHALER 18 MC* INHALE CONTENTS OF ONE CAPSUL* STOOL SOFTENER 100 MG CAPSULE TAKE 1 CAPSULE TWICE A DAY WHEAT DEXTRIN 3 GRAM/3.8 GRAM* Stir 2 teaspoonfuls into 4-8 * Problem List As Of Date 10/02/2018 Noted Resolved Schizophreniform disorder, chronic condition (H* More... Other abnormal glucose [R73.09] 04/29/2018 More... DM w/o Complication Type II [E11.9] INVALID FOR*02/22/2014 Gastritis [K29.70] INVALID FOR* Routine general medical examination at a health*INVALID FOR*11/26/2011 Class: Chronic More... Routine gynecological examination [Z01.419] INVALID FOR*11/26/2011 Class: Chronic More... Vitamin D deficiency [E55.9] INVALID FOR* More... Liver Function Test Abnormality [R94.5] INVALID FOR* More... 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 Encounter for screening for malignant neoplasm *INVALID FOR* Postmenopausal bleeding [N95.0] INVALID FOR* More... Acute diastolic CHF (congestive heart failure) *INVALID FOR* More... Obesity, Class II, BMI 35-39.9 [E66.9] INVALID FOR* Pneumonia of both upper lobes due to infectious*INVALID FOR*08/06/2018 H/O open hand wound [Z87.828] INVALID FOR* More... Encounter Status:Closed by ASIA BURRELL on 10/02/18 CBC W/DIFF, AUTOMATED Collected: 10/01/2018 Status: F Source: [place] 9:12 AM [facility] REPOSITORY TYPE CODE TESTS RESULT OUT OF RANGE REFERENCE UNITS LAB L100.1000 4.4-11.0 K/mm3 High WBC 11.2 LAB L100.1200 4.2-5.4 M/mm3 Normal RBC 4.47 LAB L100.1300 12.0-15.0 g/dl Normal HGB 13.1 LAB L100.1400 37-47 % Normal HCT 39.8 LAB L100.1500 81-99 fL Normal MCV 89.0 LAB L100.1600 27.0-32.0 pg Normal MCH 29.3 LAB L100.1700 32-36 g/gl Normal MCHC 32.9 LAB L100.1810 11.6-14.6 % Normal RDW CV 14.5 LAB L100.1820 35.1-43.9 fl High RDW SD 46.6 LAB L100.1900 150-450 K/mm3 Normal PLT 229 LAB L100.2000 6.2-12.0 fl Normal MPV 9.9 LAB L100.2100 47-70 % High NEUT% 70.8 LAB L100.2200 19-41 % Normal LY% 20.3 LAB L100.2300 0-10 % Normal MONO% 8.5 LAB L100.2400 0-5 % Normal EO% 0.1 LAB L100.2500 0-1 % Normal BASO% 0.1 LAB L100.2550 0.0-0.9 % Normal IM GRAN % 0.200 Result Comment: IG% - Immature Granulocytes (promyelocytes, myelocytes and metamyelocytes) > 1% indicates that a LEFT SHIFT is Present. LAB L100.2620 2.0-7.7 X10 3/uL High Absolute Neut 7.9 LAB L100.2720 0.83-4.51 X10 3/ul Normal Absolute Lymph 2.27 Performed By: #### L100.0100 #### [facility] [address] [place], [address] PROGRESS Observed: 09/30/2018 Status: COMPLETED Source: [place] 9:24 AM [facility] REPOSITORY HNO ID: [id number] Author: Asia (Ramón) Indra Service: (none) Author Type: Registered Nurse Type: Progress Notes Filed: 09/30/2018 11:20 AM Note Text: PRIMARY CARE COORDINATION FOLLOW-UP NOTE Provider Action/FYI FYI Patient identified by name and date of . YES Spoke to MICHELE Pressley at intermediate Summary: TC from Wendie BAUTISTA, pt vomited several times last night. Drinking fluids this AM and ate half bowl of cereal. Up in living room this morning which is improved from yesterday when she slept all day. Savings Teller plan for next outreach: Will follow up one week Signature Asia Burrell RN September 30, 2018 CNPTOUTREACH Observed: 09/30/2018 Status: COMPLETED Source: [place] 12:00 AM [facility] REPOSITORY Patient Outreach (FAMPWS) BRITTNEE LE ([id number]) 1965 F Date Time Provider Department 09/30/18 ASIA BURRELL) REMIWS During your visit today, we recorded the following information about you: Asia Burrell RN 09/30/2018 11:20 AM Signed PRIMARY CARE COORDINATION FOLLOW-UP NOTE Provider Action/CONTRERAS FYI Patient identified by name and date of . YES Spoke to MICHELE Pressley at intermediate Summary: TC from Wendie BAUTISTA pt vomited several times last night. Drinking fluids this AM and ate half bowl of cereal. Up in living room this morning which is improved from yesterday when she slept all day. 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 [3612] Prescriptions as of 09/30/2018 Sig: ACETAMINOPHEN 500 MG TABLET Take 1 tablet by mouth daily * ALBUTEROL SULFATE HFA 90 MCG/* Inhale 2 Puffs as instructed * ASPIRIN 325 MG TABLET,DELAYED* Take 1 tablet by mouth once d* BENZONATATE 100 MG CAPSULE Take 1 capsule by mouth three* BLOOD SUGAR DIAGNOSTIC STRIPS test BS twice daily - dx - 25* BLOOD-GLUCOSE METER KIT Used once daily to check bloo* CHOLECALCIFEROL (VITAMIN D3) * Take 1 capsule by mouth once * CLONAZEPAM 1 MG TABLET Take 0.5 mg Bid, 1 mg po at HS CLOZAPINE 100 MG TABLET take one tablet at noon, 2 ta* COMPOUNDED PRESCRIPTION BIPAP of 09/19 on 3L oxygen pe* COMPOUNDED PRESCRIPTION Consult [facility] Wound Center: lef* DESVENLAFAXINE SUCCINATE ER 5* Take 50 mg by mouth once ziggy* FERROUS GLUCONATE 324 MG (38 * TAKE 1 TABLET BY MOUTH TWICE * FLOVENT DISKUS 250 MCG/ACTUAT* INHALE ONE PUFF BY MOUTH TWIC* FLUTICASONE 100 MCG-VILANTERO* Inhale 1 Inhalation as instru* FUROSEMIDE 20 MG TABLET Take 1 tablet by mouth once d* GLIPIZIDE 5 MG TABLET TAKE 1 TABLET TWICE A DAY PEN NEEDLE, DIABETIC 31 GAUGE* Use one needle per dose. Once* INSULIN SYRINGE U-100 WITH NE* Use as directed daily LANCETS test BS twice daily 2 days a * LANTUS U-100 INSULIN 100 UNIT* Give 24 units subq daily at 4* LUBIPROSTONE 24 MCG CAPSULE Take 1 capsule by mouth twice* METFORMIN 500 MG TABLET TAKE 2 TABLETS BY MOUTH TWICE* MILK OF MAGNESIA 400 MG/5 ML * TAKE 15ML BY MOUTH DAILY N* OLOPATADINE 0.1 % EYE DROPS Use 1 Drop in the left eye tw* OMEGA-3 FATTY ACIDS 1,000 MG * Take 1 capsule by mouth once * POTASSIUM CHLORIDE ER 20 MEQ * TAKE 1 TABLET BY MOUTH DAILY PRAVASTATIN 20 MG TABLET TAKE 1 TABLET BY MOUTH ONCE D* * RISPERIDONE MICROSPHERES 50 M* Inject 2 mL intramuscularly e* RISPERIDONE 2 MG DISINTEGRATI* Take 2 mg by mouth once daily. SPIRIVA WITH HANDIHALER 18 MC* INHALE CONTENTS OF ONE CAPSUL* STOOL SOFTENER 100 MG CAPSULE TAKE 1 CAPSULE TWICE A DAY WHEAT DEXTRIN 3 GRAM/3.8 GRAM* Stir 2 teaspoonfuls into 4-8 * Problem List As Of Date 09/30/2018 Noted Resolved Schizophreniform disorder, chronic condition (H* More... Other abnormal glucose [R73.09] 04/29/2018 More... DM w/o Complication Type II [E11.9] INVALID FOR*02/22/2014 Gastritis [K29.70] INVALID FOR* Routine general medical examination at a [facility]*INVALID FOR*11/26/2011 Class: Chronic More... Routine gynecological examination [Z01.419] INVALID FOR*11/26/2011 Class: Chronic More... Vitamin D deficiency [E55.9] INVALID FOR* More... Liver Function Test Abnormality [R94.5] INVALID FOR* More... 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 Encounter for screening for malignant neoplasm *INVALID FOR* Postmenopausal bleeding [N95.0] INVALID FOR* More... Acute diastolic CHF (congestive heart failure) *INVALID FOR* More... Obesity, Class II, BMI 35-39.9 [E66.9] INVALID FOR* Pneumonia of both upper lobes due to infectious*INVALID FOR*08/06/2018 H/O open hand wound [Z87.828] INVALID FOR* More... Encounter Status:Closed by ASIA BURRELL on 09/30/18 PROGRESS Observed: 09/29/2018 Status: COMPLETED Source: [place] 3:26 PM [facility] REPOSITORY HNO ID: [id number] Author: Asia Crews) Indra Service: (none) Author Type: Registered Nurse Type: Progress Notes Filed: 09/29/2018 3:29 PM Note Text: PRIMARY CARE COORDINATION QUICK NOTE Provider Action/FYI FYI Patient identified by name and date . TC to Liliana Villatoro, instructed PCP doesn't want to call in anything for nausea at this time because it can interfere with pt's other medications. PCP isn't too concerned with BS in 200's for today while she is ill but if BS goes up to 300 or 400 then call MD office/NOC regarding if MD wants to change orders. Pt is sleeping now and has only taken about 8-16 oz water with one emesis. Instructed CG to call PCC tomorrow with progress report, both verbalized understanding of instructions. Asia Burrell RN September 29, 2018 3:29 PM PROGRESS Observed: 09/29/2018 Status: COMPLETED Source: [place] 2:03 PM [facility] REPOSITORY HNO ID: [id number] Author: Boris Jones Service: (none) Author Type: Physician Type: Progress Notes Filed: 09/29/2018 3:29 PM Note Text: Hold on meds for nausea. One time bs elevation is ok. Call sugar list in one week PROGRESS Observed: 09/29/2018 Status: COMPLETED Source: [place] 1:48 PM [facility] REPOSITORY HNO ID: [id number] Author: Asia Crews) Indra Service: (none) Author Type: Registered Nurse Type: Progress Notes Filed: 09/29/2018 1:52 PM Note Text: PRIMARY CARE COORDINATION FOLLOW-UP NOTE Provider Action/FYI Pt had second emesis after drinking water Reports nausea, no appetite and feeling feverish BS at noon 233 Can pt have script for nausea? Are you concerned about BS of 233, pt hasn't eaten anything today, just had water. Patient identified by name and date of . YES Spoke to MICHELE Pressley Summary: TC from Wendie BAUTISTA, states pt was sipping water and drank to much and vomited again. Pt hasn't eaten anything today and is c/o nausea States she feels feverish but they don't have a working thermometer. BS at noon 233 Savings Teller plan for next outreach: Will follow up 30days Signature Asia Burrell RN September 29, 2018 PROGRESS Observed: 09/29/2018 Status: COMPLETED Source: [place] 8:27 AM [facility] REPOSITORY HNO ID: [id number] Author: Asia Crews) Indra Service: (none) Author Type: Registered Nurse Type: Progress Notes Filed: 09/29/2018 3:29 PM Note Text: PRIMARY CARE COORDINATION FOLLOW-UP NOTE Provider Action/FYI Pt had one emesis last night BS this morning 240 Reports nausea, fatigue and poor appetite Instructed on Sick Day Care for Diabetics Patient identified by name and date of . YES Spoke to Wendie BAUTISTA at intermediate Concerns: Pt had one emesis last night. This morning patient doesn't want to eat and just wants to lie down. BS this morning 241 and 240 Informed patient may have a GI virus Discussed letting patient lie down and miss activities today. Encourage pt to drink clear liquids, including having pt drink water, tea, clear pop, broth if she isn't vomiting. Pt can have sugarfree beverages but should have some sugared liquids every hour. Read CG list of drinks off Instructions for Sick Day Care for Diabetic and faxed [facility] to [facility]. Informed BS may be elevated because pt is sick. Instructed to take another BS at noon then dinner and call office if BS are going higher. Also call if pt begins to vomit and can't stop. CG verbalized understanding of all above instructions Savings Teller plan for next outreach: Will follow up Friday Signature Asia Burrell RN September 29, 2018 CNPTOUTREAREBECCA Observed: 09/29/2018 Status: COMPLETED Source: [place] 12:00 AM [facility] REPOSITORY Patient Outreach (FAMPWS) BRITTNEE LE ([id number]) 1965 F Date Time Provider Department 09/29/18 ASIA BURRELL) FAMPWS During your visit today, we recorded the following information about you: Asia Burrell RN 09/29/2018 3:29 PM Signed PRIMARY CARE COORDINATION FOLLOW-UP NOTE Provider Action/FYJose Alfredo Pt had one emesis last night BS this morning 240 Reports nausea, fatigue and poor appetite Instructed on Sick Day Care for Diabetics Patient identified by name and date of . YES Spoke to Wendie ABUTISTA at intermediate Concerns: Pt had one emesis last night. This morning patient doesn't want to eat and just wants to lie down. BS this morning 241 and 240 Informed patient may have a GI virus Discussed letting patient lie down and miss activities today. Encourage pt to drink clear liquids, including having pt drink water, tea, clear pop, broth if she isn't vomiting. Pt can have sugarfree beverages but should have some sugared liquids every hour. Read CG list of drinks off Instructions for Sick Day Care for Diabetic and faxed [facility] to [facility]. Informed BS may be elevated because pt is sick. Instructed to take another BS at noon then dinner and call office if BS are going higher. Also call if pt begins to vomit and can't stop. CG verbalized understanding of all above instructions Savings Teller plan for next outreach: Will follow up Friday Signature Asia Burrell RN September 29, 2018 Asia Burrell RN 09/29/2018 1:52 PM Signed PRIMARY CARE COORDINATION FOLLOW-UP NOTE Provider Action/CONTRERAS Pt had second emesis after drinking water Reports nausea, no appetite and feeling feverish BS at noon 233 Can pt have script for nausea? Are you concerned about BS of 233, pt hasn't eaten anything today, just had water. Patient identified by name and date of . YES Spoke to MICHELE Pressley Summary: TC from Wendie BAUTISTA, states pt was sipping water and drank to much and vomited again. Pt hasn't eaten anything today and is c/o nausea States she feels feverish but they don't have a working thermometer. BS at noon 233 Savings Teller plan for next outreach: Will follow up 30days Signature Asia Burrell RN September 29, 2018 Boris Jones MD 09/29/2018 3:29 PM Signed Hold on meds for nausea. One time bs elevation is ok. Call sugar list in one week Asia Burrell RN 09/29/2018 3:29 PM Signed PRIMARY CARE COORDINATION QUICK NOTE Provider Action/FYI FYI Patient identified by name and date . TC to MICHELE Villatoros, instructed PCP doesn't want to call in anything for nausea at this time because it can interfere with pt's other medications. PCP isn't too concerned with BS in 200's for today while she is ill but if BS goes up to 300 or 400 then call MD office/NOC regarding if MD wants to change orders. Pt is sleeping now and has only taken about 8-16 oz water with one emesis. Instructed CG to call PCC tomorrow with progress report, both verbalized understanding of instructions. 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 [3612] Prescriptions as of 09/29/2018 Sig: ACETAMINOPHEN 500 MG TABLET Take 1 tablet by mouth daily * ALBUTEROL SULFATE HFA 90 MCG/* Inhale 2 Puffs as instructed * ASPIRIN 325 MG TABLET,DELAYED* Take 1 tablet by mouth once d* BENZONATATE 100 MG CAPSULE Take 1 capsule by mouth three* BLOOD SUGAR DIAGNOSTIC STRIPS test BS twice daily - dx - 25* BLOOD-GLUCOSE METER KIT Used once daily to check bloo* CHOLECALCIFEROL (VITAMIN D3) * Take 1 capsule by mouth once * CLONAZEPAM 1 MG TABLET Take 0.5 mg Bid, 1 mg po at HS CLOZAPINE 100 MG TABLET take one tablet at noon, 2 ta* COMPOUNDED PRESCRIPTION BIPAP of 09/19 on 3L oxygen pe* COMPOUNDED PRESCRIPTION Consult [facility] Wound Center: lef* DESVENLAFAXINE SUCCINATE ER 5* Take 50 mg by mouth once ziggy* FERROUS GLUCONATE 324 MG (38 * TAKE 1 TABLET BY MOUTH TWICE * FLOVENT DISKUS 250 MCG/ACTUAT* INHALE ONE PUFF BY MOUTH TWIC* FLUTICASONE 100 MCG-VILANTERO* Inhale 1 Inhalation as instru* FUROSEMIDE 20 MG TABLET Take 1 tablet by mouth once d* GLIPIZIDE 5 MG TABLET TAKE 1 TABLET TWICE A DAY PEN NEEDLE, DIABETIC 31 GAUGE* Use one needle per dose. Once* INSULIN SYRINGE U-100 WITH NE* Use as directed daily LANCETS test BS twice daily 2 days a * LANTUS U-100 INSULIN 100 UNIT* Give 24 units subq daily at 4* LUBIPROSTONE 24 MCG CAPSULE Take 1 capsule by mouth twice* METFORMIN 500 MG TABLET TAKE 2 TABLETS BY MOUTH TWICE* MILK OF MAGNESIA 400 MG/5 ML * TAKE 15ML BY MOUTH DAILY N* OLOPATADINE 0.1 % EYE DROPS Use 1 Drop in the left eye tw* OMEGA-3 FATTY ACIDS 1,000 MG * Take 1 capsule by mouth once * POTASSIUM CHLORIDE ER 20 MEQ * TAKE 1 TABLET BY MOUTH DAILY PRAVASTATIN 20 MG TABLET TAKE 1 TABLET BY MOUTH ONCE D* * RISPERIDONE MICROSPHERES 50 M* Inject 2 mL intramuscularly e* RISPERIDONE 2 MG DISINTEGRATI* Take 2 mg by mouth once daily. SPIRIVA WITH HANDIHALER 18 MC* INHALE CONTENTS OF ONE CAPSUL* STOOL SOFTENER 100 MG CAPSULE TAKE 1 CAPSULE TWICE A DAY WHEAT DEXTRIN 3 GRAM/3.8 GRAM* Stir 2 teaspoonfuls into 4-8 * Problem List As Of Date 09/29/2018 Noted Resolved Schizophreniform disorder, chronic condition (H* More... Other abnormal glucose [R73.09] 04/29/2018 More... DM w/o Complication Type II [E11.9] INVALID FOR*02/22/2014 Gastritis [K29.70] INVALID FOR* Routine general medical examination at a health*INVALID FOR*11/26/2011 Class: Chronic More... Routine gynecological examination [Z01.419] INVALID FOR*11/26/2011 Class: Chronic More... Vitamin D deficiency [E55.9] INVALID FOR* More... Liver Function Test Abnormality [R94.5] INVALID FOR* More... 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 Encounter for screening for malignant neoplasm *INVALID FOR* Postmenopausal bleeding [N95.0] INVALID FOR* More... Acute diastolic CHF (congestive heart failure) *INVALID FOR* More... Obesity, Class II, BMI 35-39.9 [E66.9] INVALID FOR* Pneumonia of both upper lobes due to infectious*INVALID FOR*08/06/2018 H/O open hand wound [Z87.828] INVALID FOR* More... Encounter Status:Closed by ASIA BURRELL on 09/29/18 PROGRESS Observed: 09/09/2018 Status: COMPLETED Source: [place] 9:13 AM [facility] REPOSITORY HNO ID: [id number] Author: Cuate Lara V Service: (none) Author Type: Physician Type: Progress Notes Filed: 09/09/2018 9:14 AM Note Text: FRACTURE FOLLOW-UP Ms. Le presents today for her follow-up visit from: right thumb fracture She is almost 8 weeks post-injury and was last seen 4 weeks ago. History: her pain intensity is 0/10. The patient denies swelling, warmth, discharge, drainage, fevers, chills, sweats. She reports difficulty keeping cage splint on her finger She reports no change in past medical AND surgical history, medications, allergies, social history, family history and review of systems since last visit, with the exception of the following: None Radiographs: comminuted fracture tuft of right thumb without significant fracture displacement, routine healing Physical Examination: No pain with palpation over tuft of thumb. Nail remains intact. 10% of nail with subungal hematoma PROCEDURE: Not applicable Impression: comminuted tuft fracture right thumb, routine healing Plan: may remove cage splint return to normal activity, no restrictions Cuate Lara DO PROGRESS Observed: 09/09/2018 Status: COMPLETED Source: BR[place] 9:04 AM [facility] REPOSITORY HNO ID: [id number] Author: Crispin (Rn) RAMÓN Quinteros Service: (none) Author Type: Registered Nurse Type: Progress Notes Filed: 09/09/2018 9:14 AM Note Text: AMB ROOMING INTAKE FLOWSHEET DATA Risk Screening Do you have concerns about personal safety or safety in the home?: No Patient presents with: Established Patient: 7 week 5 days post left thumb tuft fx, xray Patient is here with family member, patient was given cage splint. Patient states it was not staying on. Patient denies pain. Crispin Quinteros RN CNOV Observed: 09/09/2018 Status: COMPLETED Source: BRU[place] 9:00 AM [facility] REPOSITORY Office Visit (UC) BRITTNEE LE ([id number]) 1965 F Date Time Provider Department 09/09/18 9:00 AM CUATE LARA During your visit today, we recorded the following information about you: Crispin Quinteros RN, RN 09/09/2018 9:14 AM Signed AMB ROOMING INTAKE FLOWSHEET DATA Risk Screening Do you have concerns about personal safety or safety in the home?: No Patient presents with: Established Patient: 7 week 5 days post left thumb tuft fx, xray Patient is here with family member, patient was given cage splint. Patient states it was not staying on. Patient denies pain. RAMÓN Franco DO 09/09/2018 9:14 AM Signed FRACTURE FOLLOW-UP Ms. Le presents today for her follow-up visit from: right thumb fracture She is almost 8 weeks post-injury and was last seen 4 weeks ago. History: her pain intensity is 0/10. The patient denies swelling, warmth, discharge, drainage, fevers, chills, sweats. She reports difficulty keeping cage splint on her finger She reports no change in past medical AND surgical history, medications, allergies, social history, family history and review of systems since last visit, with the exception of the following: None Radiographs: comminuted fracture tuft of right thumb without significant fracture displacement, routine healing Physical Examination: No pain with palpation over tuft of thumb. Nail remains intact. 10% of nail with subungal hematoma PROCEDURE: Not applicable Impression: comminuted tuft fracture right thumb, routine healing Plan: may remove cage splint return to normal activity, no restrictions Cuate V Marco, DO Referring Provider: CUATE LARA V [[id number]] Allergies As of Date: 09/09/2018 (No Known Allergies) Date Reviewed: 09/09/2018 Reviewed by: Crispin (Rn) RAMÓN Quinteros - Fully Assessed Reason for Visit: Established Patient [175] Cmt: 7 week 5 days post left thumb tuft fx, xray Primary Visit Diagnosis:Crush injury to thumb, left, subsequent encounter [S67.02XD] Prescriptions as of 09/09/2018 Sig: SPIRIVA WITH HANDIHALER 18 MC* INHALE CONTENTS OF ONE CAPSUL* COMPOUNDED PRESCRIPTION Consult [facility] Wound Center: lef* BENZONATATE 100 MG CAPSULE Take 1 capsule by mouth three* OMEGA-3 FATTY ACIDS 1,000 MG * Take 1 capsule by mouth once * INSULIN SYRINGE U-100 WITH NE* Use as directed daily FLUTICASONE 100 MCG-VILANTERO* Inhale 1 Inhalation as instru* OLOPATADINE 0.1 % EYE DROPS Use 1 Drop in the left eye tw* COMPOUNDED PRESCRIPTION BIPAP of 09/19 on 3L oxygen pe* GLIPIZIDE 5 MG TABLET TAKE 1 TABLET TWICE A DAY POTASSIUM CHLORIDE ER 20 MEQ * TAKE 1 TABLET BY MOUTH DAILY FERROUS GLUCONATE 324 MG (38 * TAKE 1 TABLET BY MOUTH TWICE * METFORMIN 500 MG TABLET TAKE 2 TABLETS BY MOUTH TWICE* PRAVASTATIN 20 MG TABLET TAKE 1 TABLET BY MOUTH ONCE D* LUBIPROSTONE 24 MCG CAPSULE Take 1 capsule by mouth twice* MILK OF MAGNESIA 400 MG/5 ML * TAKE 15ML BY MOUTH DAILY N* LANTUS U-100 INSULIN 100 UNIT* Give 24 units subq daily at 4* STOOL SOFTENER 100 MG CAPSULE TAKE 1 CAPSULE TWICE A DAY ASPIRIN 325 MG TABLET,DELAYED* Take 1 tablet by mouth once d* ACETAMINOPHEN 500 MG TABLET Take 1 tablet by mouth daily * FUROSEMIDE 20 MG TABLET Take 1 tablet by mouth once d* WHEAT DEXTRIN 3 GRAM/3.8 GRAM* Stir 2 teaspoonfuls into 4-8 * CHOLECALCIFEROL (VITAMIN D3) * Take 1 capsule by mouth once * CLOZAPINE 100 MG TABLET take one tablet at noon, 2 ta* ALBUTEROL SULFATE HFA 90 MCG/* Inhale 2 Puffs as instructed * FLOVENT DISKUS 250 MCG/ACTUAT* INHALE ONE PUFF BY MOUTH TWIC* DESVENLAFAXINE SUCCINATE ER 5* Take 50 mg by mouth once ziggy* LANCETS test BS twice daily 2 days a * RISPERIDONE 2 MG DISINTEGRATI* Take 2 mg by mouth once daily. BLOOD SUGAR DIAGNOSTIC STRIPS test BS twice daily - dx - 25* CLONAZEPAM 1 MG TABLET Take 0.5 mg Bid, 1 mg po at HS PEN NEEDLE, DIABETIC 31 GAUGE* Use one needle per dose. Once* BLOOD-GLUCOSE METER KIT Used once daily to check bloo* * RISPERIDONE MICROSPHERES 50 M* Inject 2 mL intramuscularly e* Problem List As Of Date 09/09/2018 Noted Resolved Schizophreniform disorder, chronic condition (H* Priority: Mild More... Other abnormal glucose [R73.09] 04/29/2018 Priority: A More... DM w/o Complication Type II [E11.9] INVALID FOR*02/22/2014 Priority: Moderate Gastritis [K29.70] INVALID FOR* Routine general medical examination at a [facility]*INVALID FOR*11/26/2011 Class: Chronic More... Routine gynecological examination [Z01.419] INVALID FOR*11/26/2011 Class: Chronic More... Vitamin D deficiency [E55.9] INVALID FOR* Priority: A More... Liver Function Test Abnormality [R94.5] INVALID FOR* More... 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 Encounter for screening for malignant neoplasm *INVALID FOR* Postmenopausal bleeding [N95.0] INVALID FOR* More... Acute diastolic CHF (congestive heart failure) *INVALID FOR* More... Obesity, Class II, BMI 35-39.9 [E66.9] INVALID FOR* Pneumonia of both upper lobes due to infectious*INVALID FOR*08/06/2018 H/O open hand wound [Z87.828] INVALID FOR* More... Encounter Status:Closed by CUATE LARA DO, V on 09/09/18 PROGRESS Observed: 09/09/2018 Status: COMPLETED Source: BRU[place] 8:46 AM [facility] REPOSITORY O ID: [id number] Author: STAN White (Ct) Service: (none) Author Type: Clinical Dye [employer] Vat Worker Type: Progress Notes Filed: 09/09/2018 8:47 AM Note Text: Radiology Service Progress Note PATIENT NAME: Brittnee Le DATE OF SERVICE: September 09, 2018 TIME: 8:46 AM PATIENT IDENTITY VERIFICATION COMPLETED USING TWO (2) METHODS: Patient confirmed name verbally and Date of . PATIENT GENDER DATA: Female. status: : No status: NO. PATIENT RELEVANT IMPLANT DATA REVIEWED: Not Applicable RADIOLOGY DEPARTMENT: General X-ray: Exam(s) Completed: Upper Extremity X-Ray(s): Fingers/Thumb, left : PERIPHERAL IV DATA: Not applicable SIGNED BY: STAN White September 09, 2018 8:46 AM XR DIGIT 3V Observed: 09/09/2018 Status: F Source: BRU[place] FRONTAL/LAT/OBL LT 8:46 AM [facility] REPOSITORY * * *Final Report* * * DATE OF EXAM: Sep 09 2018 8:46AM WRX [id number] - XR DIGIT 3V FRONTAL/LAT/OBL LT / PROCEDURE REASON: Crushing injury of left thumb, subsequent encounter * * * * Physician Interpretation * * * * EXAMINATION: XR DIGIT 3V FRONTAL/LAT/OBL LT REASON FOR EXAM: Crushing injury of left thumb, subsequent encounter ; patient slammed thumb into car door approx 1 month ago TECHNIQUE: XR DIGIT 3V FRONTAL/LAT/OBL LT, with attenuation to the first digit of the hand COMPARISON: 08/14/2018 FINDINGS: Bones: Redemonstration of a comminuted fracture involving the first digit distal phalanx. There is developing callus about portions of the fracture. No substantial change in alignment. Mild degenerative change. Joints: No dislocation. Soft tissues: There are findings suggestive of clubbing of the first digit. Interval decrease in soft tissue swelling about the fracture. IMPRESSION: 1. Healing comminuted fracture of the first digit distal phalanx with no substantial change in alignment. 2. Apparent clubbing of the first digit; correlation with physical exam suggested. 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: MILDRED Transcribe Date/Time: Sep 09 2018 2:42P Dictated by : ULISSES GRISSOM, DO This examination was interpreted and the report reviewed and electronically signed by: ULISSES GRISSOM DO on Sep 09 2018 2:47PM EST [id number] CBC W/DIFF, AUTOMATED Collected: 09/01/2018 Status: F Source: [place] 9:20 AM [facility] REPOSITORY TYPE CODE TESTS RESULT OUT OF RANGE REFERENCE UNITS LAB L100.1000 4.4-11.0 K/mm3 High WBC 11.9 LAB L100.1200 4.2-5.4 M/mm3 Normal RBC 4.47 LAB L100.1300 12.0-15.0 g/dl Normal HGB 13.0 LAB L100.1400 37-47 % Normal HCT 41.0 LAB L100.1500 81-99 fL Normal MCV 91.7 LAB L100.1600 27.0-32.0 pg Normal MCH 29.1 LAB L100.1700 32-36 g/gl Low MCHC 31.7 LAB L100.1810 11.6-14.6 % High RDW CV 15.1 LAB L100.1820 35.1-43.9 fl High RDW SD 51.0 LAB L100.1900 150-450 K/mm3 Normal PLT 188 LAB L100.2000 6.2-12.0 fl Normal MPV 11.1 LAB L100.2100 47-70 % High NEUT% 76.0 LAB L100.2200 19-41 % Low LY% 18.4 LAB L100.2300 0-10 % Normal MONO% 5.3 LAB L100.2400 0-5 % Normal EO% 0.0 LAB L100.2500 0-1 % Normal BASO% 0.2 LAB L100.2550 0.0-0.9 % Normal IM GRAN % 0.100 Result Comment: IG% - Immature Granulocytes (promyelocytes, myelocytes and metamyelocytes) > 1% indicates that a LEFT SHIFT is Present. LAB L100.2620 2.0-7.7 X10 3/uL High Absolute Neut 9.1 LAB L100.2720 0.83-4.51 X10 3/ul Normal Absolute Lymph 2.20 Performed By: #### L100.0100 #### [facility] [place], [address] WOUND CTR HISTORY Observed: 08/24/2018 Status: F Source: SILVER AND PHYSICAL 1:26 PM [facility] REPOSITORY [facility] [address] [place] [address] Wound Ctr History AND Physical 08/24/18 1322 MR#: [id number] Acct: [id number] Name: BRITTNEE LE Rep #: [id number] : 1965 52 From: Shlomo Wilkerson MD PCP: Boris Jones MD Status: REG RCR Y Location: (1) Puncture wound, hand Status: Acute Current Visit: Yes Qualifiers: Encounter type: subsequent encounter Foreign body presence: without foreign body Code(s): S61.439A - Puncture wound without foreign body of unspecified hand, initial encounter (2) FTT (failure to thrive) in adult Status: Chronic Current Visit: Yes Code(s): R62.7 - Adult failure to thrive (3) COPD (chronic obstructive pulmonary disease) Status: Chronic Current Visit: No Code(s): J44.9 - Chronic obstructive pulmonary disease, unspecified (4) Hyperlipidemia Status: Chronic Current Visit: No Code(s): E78.5 - Hyperlipidemia, unspecified (5) Diabetes mellitus type 2 in obese Status: Chronic Current Visit: No Code(s): E11.9 - Type 2 diabetes mellitus without complications; E66.9 - Obesity, unspecified (6) HTN (hypertension) Status: Chronic Current Visit: No Code(s): I10 - Essential (primary) hypertension (7) Schizophrenia Status: Chronic Current Visit: No Code(s): F20.9 - Schizophrenia, unspecified History of Present Illness Chief Complaint: Puncture wound of the left hand History of Wound: This is a 52-year-old female who presented with a traumatic wound to the left hand. The wound is located on the webspace at the base of the left thumb. It occurred on July 18 as the result of slamming her left hand in a car door. Since that time, the patient had been treated by her primary care physician, which has included the use of Neosporin topically. Apparently, the patient was also treated with a course of oral antibiotics. Since the time of her injury, the patient had been admitted at [facility] and treatment for bacterial pneumonia. Records from that admission have been reviewed. She was hospitalized for a total of 7 days. The medical problems identified during that hospital stay were chronic obstructive pulmonary disease exacerbation, pneumonia, and hypoxic respiratory failure. An x-ray of the left hand which was performed on July 18, 2018, revealed minimally displaced comminuted fracture of the distal phalanx of the left fifth digit. A splint had been previously implemented. Past Medical History Past Medical History: Chronic Problems Nonproductive cough (Chronic) FTT (failure to thrive) in adult (Chronic) COPD (chronic obstructive pulmonary disease) (Chronic) Hyperlipidemia (Chronic) Diabetes mellitus type 2 in obese (Chronic) HTN (hypertension) (Chronic) Schizophrenia (Chronic) Surgical History: noncontributory Allergies/Adverse Reactions: Allergies No Known Allergies Allergy (Verified 07/22/18 09:30) Home Medications: Ambulatory Orders Medication Instructions Recorded Clozapine [Clozaril] 100 mg PO LUNCH 03/28/14 Metformin HCl [Glucophage] 1,000 mg PO BID 03/28/14 - Family History Paternal - - from a farm accident Maternal No pertinent history Smoking Status: Former smoker Tobacco Use: Non-smoker Review of Systems Constitutional: Denies: Chills, Fever, Weight Change Eyes: Denies: Pain, Vision Change HEENT: Denies: Difficulty Hearing, Difficulty Swallowing, Sinus Congestion Cardiovascular: Denies: Chest Pain, Palpitations Respiratory: Denies: Cough, Shortness of Breath Gastrointestinal: Denies: Diarrhea, Nausea, Vomiting Genitourinary: Denies: Dysuria, Hematuria Endocrine: Denies: Heat/ Cold Intolerance, Polydipsia, Polyuria Hematologic/ Lymphatic: Denies: Easy Bruising, Easy Bleeding - Physical Exam Vital Signs Temp Pulse Resp BP 97.1 F L 120 H 18 145/87 H 08/24/18 12:57 08/24/18 12:57 08/24/18 12:57 08/24/18 12:57 General: Alert, Oriented x3, Cooperative, No apparent distress, Well developed, Well nourished HEENT: Atraumatic, PERRLA, EOMI, Normocephalic Oral: Moist Mucosa Neck: No JVD Lungs: Normal air movement Abdomen: Non-Distended Extremities: No clubbing, No cyanosis, No edema, No Calf Tenderness, - - The traumatic wound on the webspace between the left thumb and left first digit is now completely healed and epithelialized. There is no sign of infection or cellulitis. Skin: No rashes, No breakdown Wound Measurements and Assessment WC - Nurse 1 - General Ulcer Measurement Start: 08/14/18 13:54 Freq: Status: Active Protocol: Activity Type Activity Date Activity User E-Sign Co-Sign Detail Neurological: Cranial nerves II-XII grossly intact, Neuro grossly intact Psych/Mental Status: Normal Affect, Appropriate, Alert and oriented to time, place, person, mood and affect Debridement Note No debridement was completed today Assessment/Plan Active Problems Puncture wound, hand (Acute) FTT (failure to thrive) in adult (Chronic) Assessment: This is a 52-year-old female with a left hand penetrating injury. Recent laboratory studies have been obtained, and have been reviewed. Results are as follows: White blood count 14.3. However, this was performed at the time the patient was recently treated for pneumonia. Hemoglobin 13.0, hematocrit 40.4, platelets 195,000. Sodium 136, potassium 3.5, chloride 98, BUN 17, creatinine 0.72, glucose 133, hemoglobin A1c 7.5, calcium 9.3, magnesium 2.0, total protein 8.0, albumin 3.8, alkaline phosphatase 135, ALT 48, AST 20. Based upon the patient's follow-up examination today, the traumatic wound on the left hand is now completely healed and epithelialized. Plan: Patient is to be discharged today. The patient's left hand traumatic wound is completely healed. She will follow-up henceforth on an as-needed basis. Influenza vaccine was not administered today. The patient is not a smoker. She weighs 190 pounds. Her height is 5 feet 1 inch tall. BMI is 35.9, which places her in a class II obesity category. Weight loss has been recommended, and collaboration with her primary care physician has been recommended. 08/24/18 1326 <Electronically signed by Shlomo Wilkerson MD> Date Shlomo Wilkerson MD CC: Signed CBC AND DIFFERENTIAL Collected: 08/18/2018 Status: F Source: [facility] 9:14 AM [facility] REPOS[facility] TYPE CODE TESTS RESULT OUT OF REFERENCE UNITS RANGE LAB WBC 3.70-11.00 k/uL WBC 9.71 LAB RBC 3.90-5.20 m/uL RBC 4.41 LAB HGB 11.5-15.5 g/dL Hemoglobin 12.8 LAB HCT 36.0-46.0 % Hematocrit 41.5 LAB MCV 80.0-100.0 fL MCV 94.1 LAB MCH 26.0-34.0 pG MCH 29.0 LAB MCHC 30.5-36.0 g/dL MCHC 30.8 LAB RDWCV 11.5-15.0 % RDW-CV High 15.1 LAB PLTCT 150-400 k/uL Platelet Count 202 LAB MPV 9.0-12.7 fL MPV 11.3 LAB ANEUT % Neut% 67.6 LAB AANEUT 1.45-7.50 k/uL Abs Neut 6.57 LAB ALYMP % Lymph% 26.2 LAB AALYMP 1.00-4.00 k/uL Abs Lymph 2.54 LAB AMONO % [place]% 6.0 LAB AAMONO <0.87 k/uL Abs [place] 0.58 LAB AEOS % Eosin% 0.0 LAB AAEOS <0.46 k/uL Abs Eosin <0.03 LAB ABASO % Baso% 0.2 LAB AABASO <0.11 k/uL Abs Baso <0.03 LAB AUNRBC 0 /100 WBC NRBCs 0.0 LAB ABNRBC <0.01 k/uL Absolute nRBC <0.01 LAB DTYP DTYPE Auto Diff Performed By: #### CBCDIF #### [facility] [address] [place], [place] [address] PROGRESS Observed: 08/14/2018 Status: COMPLETED Source: [facility] 9:47 AM [facility] REPOSITORY HNO ID: [id number] Author: Cuate Lara V Service: (none) Author Type: Physician Type: Progress Notes Filed: 08/14/2018 10:11 AM Note Text: FRACTURE FOLLOW-UP Ms. Le presents today for her follow-up visit from: right thumb fracture She is four weeks post-injury and was last seen three weeks ago. History: her pain intensity is 5/10. The patient denies swelling, warmth, discharge, drainage, fevers, chills, sweats. She reports compliance with therapy, sling/splint/ambulatory device/dressing/wound care, and the use of medications. She reports no change in past medical AND surgical history, medications, allergies, social history, family history and review of systems since last visit, with the exception of the following: None Radiographs: comminuted fracture tuft of right thumb without significant fracture displacement Physical Examination: right thumb- tender over distal phalanx. Nail remains intact. 10% of nail with subungal hematoma PROCEDURE: Not applicable Impression: comminuted tuft fracture right thumb Plan: cage splint to protect thumb recheck in 4 weeks with x-ray of thumb Cuate Lara DO CNOV Observed: 08/14/2018 Status: COMPLETED Source: [facility] 9:40 AM [facility] REPOSITORY Office Visit (UC) BRITTNEE LE ([id number]) 1965 F Date Time Provider Department 08/14/18 9:40 AM CUATE LARA During your visit today, we recorded the following information about you: Jennifer Moreno Ma 08/14/2018 10:11 AM Signed AMB ROOMING INTAKE FLOWSHEET DATA Risk Screening Do you have concerns about personal safety or safety in the home?: No Pain Pain Score: 5/10 Pain Location: Hand-Left Description: Sore, Numbness Duration Amount of Time: (ongoing) Frequency: Continuous Intervention: Medication Cuate Lara DO 08/14/2018 10:11 AM Signed FRACTURE FOLLOW-UP Ms. Le presents today for her follow-up visit from: right thumb fracture She is four weeks post-injury and was last seen three weeks ago. History: her pain intensity is 5/10. The patient denies swelling, warmth, discharge, drainage, fevers, chills, sweats. She reports compliance with therapy, sling/splint/ambulatory device/dressing/wound care, and the use of medications. She reports no change in past medical AND surgical history, medications, allergies, social history, family history and review of systems since last visit, with the exception of the following: None Radiographs: comminuted fracture tuft of right thumb without significant fracture displacement Physical Examination: right thumb- tender over distal phalanx. Nail remains intact. 10% of nail with subungal hematoma PROCEDURE: Not applicable Impression: comminuted tuft fracture right thumb Plan: cage splint to protect thumb recheck in 4 weeks with x-ray of thumb Cuate Lara DO Referring Provider: CUATE LARA V [[id number]] Allergies As of Date: 08/14/2018 (No Known Allergies) Date Reviewed: 08/14/2018 Reviewed by: Jennifer Moreno Ma - Fully Assessed Reason for Visit: Established Patient [175] Cmt: 4 week post left thumb tuft fx Primary Visit Diagnosis:Crush injury to thumb, left, subsequent encounter [S67.02XD] Prescriptions as of 08/14/2018 Sig: OMEGA-3 FATTY ACIDS 1,000 MG * Take 1 capsule by mouth once * INSULIN SYRINGE-NEEDLE U-100 * Use as directed daily FLUTICASONE 100 MCG-VILANTERO* Inhale 1 Inhalation as instru* OLOPATADINE 0.1 % EYE DROPS Use 1 Drop in the left eye tw* GLIPIZIDE 5 MG TABLET TAKE 1 TABLET TWICE A DAY POTASSIUM CHLORIDE ER 20 MEQ * TAKE 1 TABLET BY MOUTH DAILY FERROUS GLUCONATE 324 MG (38 * TAKE 1 TABLET BY MOUTH TWICE * METFORMIN 500 MG TABLET TAKE 2 TABLETS BY MOUTH TWICE* PRAVASTATIN 20 MG TABLET TAKE 1 TABLET BY MOUTH ONCE D* LUBIPROSTONE 24 MCG CAPSULE Take 1 capsule by mouth twice* LANTUS U-100 INSULIN 100 UNIT* Give 24 units subq daily at 4* ASPIRIN 325 MG TABLET,DELAYED* Take 1 tablet by mouth once d* FUROSEMIDE 20 MG TABLET Take 1 tablet by mouth once d* CHOLECALCIFEROL (VITAMIN D3) * Take 1 capsule by mouth once * CLOZAPINE 100 MG TABLET take one tablet at noon, 2 ta* DESVENLAFAXINE SUCCINATE ER 5* Take 50 mg by mouth once ziggy* LANCETS test BS twice daily 2 days a * RISPERIDONE 2 MG DISINTEGRATI* Take 2 mg by mouth once daily. CLONAZEPAM 1 MG TABLET Take 0.5 mg Bid, 1 mg po at HS PEN NEEDLE, DIABETIC 31 GAUGE* Use one needle per dose. Once* COMPOUNDED PRESCRIPTION Consult [facility] Wound Center: lef* BENZONATATE 100 MG CAPSULE Take 1 capsule by mouth three* TIOTROPIUM BROMIDE 18 MCG CAP* Inhale 1 capsule as instructe* COMPOUNDED PRESCRIPTION BIPAP of 09/19 on 3L oxygen pe* MILK OF MAGNESIA 400 MG/5 ML * TAKE 15ML BY MOUTH DAILY N* STOOL SOFTENER 100 MG CAPSULE TAKE 1 CAPSULE TWICE A DAY ACETAMINOPHEN 500 MG TABLET Take 1 tablet by mouth daily * WHEAT DEXTRIN 3 GRAM/3.8 GRAM* Stir 2 teaspoonfuls into 4-8 * ALBUTEROL SULFATE HFA 90 MCG/* Inhale 2 Puffs as instructed * FLOVENT DISKUS 250 MCG/ACTUAT* INHALE ONE PUFF BY MOUTH TWIC* BLOOD SUGAR DIAGNOSTIC STRIPS test BS twice daily - dx - 25* BLOOD-GLUCOSE METER KIT Used once daily to check bloo* * RISPERIDONE MICROSPHERES 50 M* Inject 2 mL intramuscularly e* Problem List As Of Date 08/14/2018 Noted Resolved Schizophreniform disorder, chronic condition (H* Priority: Mild More... Other abnormal glucose [R73.09] 04/29/2018 Priority: A More... DM w/o Complication Type II [E11.9] INVALID FOR*02/22/2014 Priority: Moderate Gastritis [K29.70] INVALID FOR* Routine general medical examination at a health*INVALID FOR*11/26/2011 Class: Chronic More... Routine gynecological examination [Z01.419] INVALID FOR*11/26/2011 Class: Chronic More... Vitamin D deficiency [E55.9] INVALID FOR* Priority: A More... Liver Function Test Abnormality [R94.5] INVALID FOR* More... 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 Encounter for screening for malignant neoplasm *INVALID FOR* Postmenopausal bleeding [N95.0] INVALID FOR* More... Acute diastolic CHF (congestive heart failure) *INVALID FOR* More... Obesity, Class II, BMI 35-39.9 [E66.9] INVALID FOR* Pneumonia of both upper lobes due to infectious*INVALID FOR*08/06/2018 H/O open hand wound [Z87.828] INVALID FOR* More... Encounter Status:Closed by CUATE LARA DO, V on 08/14/18 PROGRESS Observed: 08/14/2018 Status: COMPLETED Source: [facility] 9:39 AM [facility] REPOSITORY HNO ID: [id number] Author: Jennifer Moreno Ma Service: (none) Author Type: (none) Type: Progress Notes Filed: 08/14/2018 10:11 AM Note Text: AMB ROOMING INTAKE FLOWSHEET DATA Risk Screening Do you have concerns about personal safety or safety in the home?: No Pain Pain Score: 5/10 Pain Location: Hand-Left Description: Sore, Numbness Duration Amount of Time: (ongoing) Frequency: Continuous Intervention: Medication XR DIGIT 3V Observed: 08/14/2018 Status: F Source: [facility] FRONTAL/LAT/OBL LT 9:24 AM [facility] REPOSITORY * * *Final Report* * * DATE OF EXAM: Aug 14 2018 9:24AM WRX [id number] - XR DIGIT 3V FRONTAL/LAT/OBL LT / PROCEDURE REASON: Crushing injury of left thumb, subsequent encounter * * * * Physician Interpretation * * * * EXAMINATION: XR DIGIT 3V FRONTAL/LAT/OBL LT CLINICAL HISTORY: 1 week follow up to left thumb fracture Crushing injury of left thumb, subsequent encounter Technique: XR DIGIT 3V FRONTAL/LAT/OBL LT -- LEFT hand first digit with 3 views on 3 images Comparison: Left hand radiographs of 08/06/2018 RESULT: There is a mildly displaced, comminuted fracture of the first distal phalanx, similar in appearance to prior exam. Overlying soft tissue swelling. The joint spaces appear maintained. No radiopaque foreign body. IMPRESSION: Comminuted fracture of the first distal phalanx with overlying soft tissue swelling. 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: MILDRED Transcribe Date/Time: Aug 14 2018 11:55A Dictated by : TONIE CHANG MD This examination was interpreted and the report reviewed and electronically signed by: TONIE CHANG MD on Aug 14 2018 11:58AM EST [id number] PROGRESS Observed: 08/14/2018 Status: COMPLETED Source: [facility] 9:14 AM [facility] REPOSITORY HNO ID: [id number] Author: Jerica (Rt) Nancy Sanchez Service: (none) Author Type: [employer] Vat Worker Type: Progress Notes Filed: 08/14/2018 9:25 AM Note Text: Radiology Service Progress Note PATIENT NAME: Brittnee Le DATE OF SERVICE: August 14, 2018 TIME: 9:14 AM PATIENT IDENTITY VERIFICATION COMPLETED USING TWO (2) METHODS: Patient confirmed name verbally and Date of . PATIENT GENDER DATA: Female. status: : No status: NO. PATIENT RELEVANT IMPLANT DATA REVIEWED: Not Applicable RADIOLOGY DEPARTMENT: General X-ray: Exam(s) Completed: Upper Extremity X-Ray(s): Fingers/Thumb, left : PERIPHERAL IV DATA: Not applicable SIGNED BY: RT Da August 14, 2018 9:14 AM PROGRESS Observed: 08/12/2018 Status: COMPLETED Source: [facility] 9:31 AM [facility] REPOSITORY HNO ID: [id number] Author: Boris Jones Service: (none) Author Type: Physician Type: Progress Notes Filed: 08/12/2018 9:43 AM Note Text: Patient presents with: Recheck HPI: Patient presents today for office visit for follow up. Presents for pneumonia follow up. See Alejandro Nuno note from recent notes. Pneumonia: cough is improving. No fever or chills. Breathing is doing better. No nausea Is tired. Most recent chest xray was clear. Cbc shows mild leukocytosis. Still some anxiety. Still seeing psychiatry. Hand: seeing Dr. Lara on Friday with repeat xrays before Wound: seeing wound care center. No red streaks or fever or chills. Most recent hba1c was 7.2. Discussed her current fluid restrictions. MEDICATIONS: Current Outpatient Prescriptions: COMPOUNDED PRESCRIPTION Consult [facility] Wound Center: left thumb webspace tear, granular tissue, swelling left [id number] Open wound of left hand with complication, initial encounter (primary encounter diagnosis)J13 Pneumonia of right upper lobe due to Streptococcus pneumoniae (HCC)E11.21 Type 2 diabetes mellitus with diabetic nephropathy, unspecified whether half-way insulin use (HCC) benzonatate (TESSALON PERLE) 100 mg capsule Take 1 capsule by mouth three times daily as needed for Cough. omega-3 fatty acids (FISH OIL CONCENTRATE) 1,000 mg cap Take 1 capsule by mouth once daily. Insulin Syringe-Needle U-100 (BD INSULIN SYRINGE) 1 mL 28 gauge x 1/2 syrg Use as directed daily fluticasone-vilanterol (BREO ELLIPTA) 100-25 mcg/dose inhaler Inhale 1 Inhalation as instructed once daily. Per Dr. Ramirez olopatadine (PATANOL) 0.1 % ophthalmic solution Use 1 Drop in the left eye twice daily as needed. Per Dr. Alvarenga COMPOUNDED PRESCRIPTION BIPAP of 09/19 on [address]L oxygen per Dr[address] Ramirez glipiZIDE (GLUCOTROL) 5 mg tablet TAKE 1 TABLET TWICE A DAY potassium chloride ER (K-DUR, KLOR-CON) 20 mEq tablet TAKE 1 TABLET BY MOUTH DAILY Ferrous Gluconate (FERGON) 324 mg (38 mg iron) tablet TAKE 1 TABLET BY MOUTH TWICE A DAY WITH MEALS. metFORMIN (GLUCOPHAGE) 500 mg tablet TAKE 2 TABLETS BY MOUTH TWICE DAILY WITH MEALS. . pravastatin (PRAVACHOL) 20 mg tablet TAKE 1 TABLET BY MOUTH ONCE DAILY. lubiprostone (AMITIZA) 24 mcg capsule Take 1 capsule by mouth twice daily with meals. MILK OF MAGNESIA 400 mg/5 mL suspension TAKE 15ML BY MOUTH DAILY NEEDED FOR CONSTIPATION (FOR NO BOWEL MOVEMENT AFTER 3 LANTUS U-100 INSULIN 100 unit/mL injection Give 24 units subq daily at 4 PM or as directed STOOL SOFTENER 100 mg capsule TAKE 1 CAPSULE TWICE A DAY aspirin, enteric coated (ASPIRIN, ENTERIC COATED) 325 mg EC tablet Take 1 tablet by mouth once daily. Take with food. acetaminophen (TYLENOL EXTRA STRENGTH) 500 mg tablet Take 1 tablet by mouth daily at bedtime. furosemide (LASIX) 20 mg tablet Take 1 tablet by mouth once daily. wheat dextrin (BENEFIBER SUGAR FREE, DEXTRIN,) 3 gram/3.8 gram powd Stir 2 teaspoonfuls into 4-8 oz of beverage or soft food daily Cholecalciferol, Vitamin D3, 1,000 unit cap Take 1 capsule by mouth once daily. cloZAPine (CLOZARIL) 100 mg tablet take one tablet at noon, 2 tablets at 3 PM and 3 tablets at Bedtime albuterol HFA (VENTOLIN HFA) 90 mcg/actuation inhaler Inhale 2 Puffs as instructed every 4 hours as needed for Wheezing/Shortness of Breath. desvenlafaxine ER (PRISTIQ) 50 mg 24 hr tablet Take 50 mg by mouth once daily. Lancets lancets test BS twice daily 2 days a week- dx 250.00 - non-insulin risperiDONE orally disintegrating (RISPERDAL M) 2 mg disintegrating tablet Take 2 mg by mouth once daily. blood sugar diagnostic (FREESTYLE LITE STRIPS) test strip test BS twice daily - dx - 250.00 -insulin Yes clonazePAM (KLONOPIN) 1 mg tablet Take 0.5 mg Bid, 1 mg po at HS insulin needles, DISPOSABLE, (PEN NEEDLE) 31 X 5/16 ndle Use one needle per dose. Once per day. Blood-Glucose Meter (FREESTYLE LITE METER) monitoring kit Used once daily to check blood sugar. 250.00 risperidone (RISPERDAL CONSTA) 50 mg/2 mL INTRAMUSC. injection Inject 2 mL intramuscularly every 2 weeks. tiotropium (SPIRIVA WITH HANDIHALER) 18 mcg inhalation capsule Inhale 1 capsule as instructed once daily. Use with handihaler. Per Dr. James LOPEZ DISKUS 250 mcg/actuation dsdv INHALE ONE PUFF BY MOUTH TWICE DAILY DIRECTED No current facility-administered medications for this visit. ALLERGIES: ALLERGIES No Known Allergies PAST MEDICAL HISTORY Diagnosis Date - Bilateral pneumonia 07/23/2018 Admit [facility]: pneumococcal suspected, neg culture. + rhinovirus - Constipation - COPD (chronic obstructive pulmonary disease) ([facility]) - Diabetes 1.5, managed as type 2 ([facility]) found at counseling center, pt was on metformin for a while but taken off - pt never told if she had DM or not - Major depressive disorder, recurrent episode, unspecified - Nonspecific elevation of levels of transaminase or lactic acid dehydrogenase (LDH) - LIDA (obstructive sleep apnea) - Pneumonia - Schizophreniform disorder, chronic condition ([facility]) - Simple endometrial hyperplasia without atypia mirena IUD 01/2011 PAST SURGICAL HISTORY Procedure Laterality Date - COLONOSCOPY W/BX 12/19/2016 Normal colonoscopy-10 year follow-up - PAST SURGICAL HISTORY OF 1982 corrective jaw surgery - REMOVAL GALLBLADDER 1998 open FAMILY HISTORY Problem Relation Age of Onset - Psychiatry Mother depression - other (lung cancer) Paternal Grandfather - Psychiatry Brother schizophrenia - Diabetes Brother - Hypertension Brother - Psychiatry Sister deperssion Social History Marital status: Single Spouse name: Years of education: 14 Number of children: 0 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 REVIEW OF SYSTEMS GI: Negative for change in bowel habit : No history of dysuria, frequency or incontinence All other reviewed and negative other than HPI. HEALTH MAINTENANCE: Reviewed health maintenance issues today and recommended the following in detail. VITALS: BP 124/80 Pulse 117 Temp 36.4 ?C (97.5 ?F) (Tympanic) Wt 87.5 kg (193 lb) LMP 09/12/2017 SpO2 94% BMI 36.47 kg/m? Last 4 Encounter Wt Readings: Date: Wt: 08/12/2018 87.5 kg (193 lb) 08/06/2018 85.3 kg (188 lb) 07/20/2018 86.2 kg (190 lb) 07/17/2018 88.9 kg (196 lb) PHYSICAL EXAMINATION: General appearance: Well appearing, alert, in no acute distress, well-hydrated, well nourished. Skin: Skin color, texture, turgor normal, no suspicious rashes or lesions Head: Normocephalic, no masses, lesions, tenderness or abnormalities Lungs: Lungs clear to auscultation. No wheezing, rhonchi, rales Heart: RRR without murmur, gallop, or rubs. No ectopy Abdomen: Normal abdominal exam, Abdomen soft, non-tender. Bowel sounds normal. No masses, organomegaly Extremities: No deformities, edema, skin discoloration, clubbing or cyanosis. Good capillary refill. Musculoskeletal: No joint swelling, deformity, or tenderness Peripheral pulses: Normal Wrap in place over left hand from wound care. No edema or red streaks ASSESSMENT/PLAN: 1. Leukocytosis, unspecified type - ICD9: 288.60, ICD10: D72.829 (primary diagnosis) - recheck cbc next week. 2. Open wound of left hand with complication, initial encounter - ICD9: 882.1, ICD10: S61.402A - call If any issues. 3. Pneumonia of both upper lobes due to infectious organism (HCC) - ICD9: 483.8, ICD10: J18.1 - call if any issues. 4. COPD with exacerbation (HCC) - ICD9: 491.21, ICD10: J44.1 - call if worsens. 5. Schizophreniform disorder, chronic condition (HCC) - ICD9: 295.42, ICD10: F20.81 - says she has trouble with things sliding by-discussed that she should contact her psychiatrst 6. Type 2 diabetes mellitus with diabetic nephropathy, with long-term current use of insulin (HCC) - ICD9: 250.40, 583.81, V58.67, ICD10: E11.21, Z79.4 Controlled. - Continue current medications Boris Jones MD RTO in two months and prn. CNOV Observed: 08/12/2018 Status: COMPLETED Source: [facility] 9:20 AM [facility] REPOSITORY Office Visit (FAMPWS) BRITTNEE LE ([id number]) 1965 F Date Time Provider Department 08/12/18 9:20 AM BORIS JONES [facility] During your visit today, we recorded the following information about you: Temperature Pulse Blood pressure Weight 97.5 degrees 117/minute 124/80 87.5 kg Boris Jones MD 08/12/2018 9:43 AM Signed Patient presents with: Recheck HPI: Patient presents today for office visit for follow up. Presents for pneumonia follow up. See Alejandro Nuno note from recent notes. Pneumonia: cough is improving. No fever or chills. Breathing is doing better. No nausea Is tired. Most recent chest xray was clear. Cbc shows mild leukocytosis. Still some anxiety. Still seeing psychiatry. Hand: seeing Dr. Lara on Friday with repeat xrays before Wound: seeing wound care center. No red streaks or fever or chills. Most recent hba1c was 7.2. Discussed her current fluid restrictions. 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 omega-3 fatty acids (FISH OIL CONCENTRATE) 1,000 mg cap Take 1 capsule by mouth once daily. Insulin Syringe-Needle U-100 (BD INSULIN SYRINGE) 1 mL 28 gauge x 1/2 syrg Use as directed daily fluticasone-vilanterol (BREO ELLIPTA) 100-25 mcg/dose inhaler Inhale 1 Inhalation as instructed once daily. Per Dr. Ramirez olopatadine (PATANOL) 0.1 % ophthalmic solution Use 1 Drop in the left eye twice daily as needed. Per Dr. Alvarenga COMPOUNDED PRESCRIPTION BIPAP of 12/8 on [address]L oxygen per Dr[address] Ramirez glipiZIDE (GLUCOTROL) 5 mg tablet TAKE 1 TABLET TWICE A DAY potassium chloride ER (K-DUR, KLOR-CON) 20 mEq tablet TAKE 1 TABLET BY MOUTH DAILY Ferrous Gluconate (FERGON) 324 mg (38 mg iron) tablet TAKE 1 TABLET BY MOUTH TWICE A DAY WITH MEALS. metFORMIN (GLUCOPHAGE) 500 mg tablet TAKE 2 TABLETS BY MOUTH TWICE DAILY WITH MEALS. . pravastatin (PRAVACHOL) 20 mg tablet TAKE 1 TABLET BY MOUTH ONCE DAILY. lubiprostone (AMITIZA) 24 mcg capsule Take 1 capsule by mouth twice daily with meals. MILK OF MAGNESIA 400 mg/5 mL suspension TAKE 15ML BY MOUTH DAILY NEEDED FOR CONSTIPATION (FOR NO BOWEL MOVEMENT AFTER 3 LANTUS U-100 INSULIN 100 unit/mL injection Give 24 units subq daily at 4 PM or as directed STOOL SOFTENER 100 mg capsule TAKE 1 CAPSULE TWICE A DAY aspirin, enteric coated (ASPIRIN, ENTERIC COATED) 325 mg EC tablet Take 1 tablet by mouth once daily. Take with food. acetaminophen (TYLENOL EXTRA STRENGTH) 500 mg tablet Take 1 tablet by mouth daily at bedtime. furosemide (LASIX) 20 mg tablet Take 1 tablet by mouth once daily. wheat dextrin (BENEFIBER SUGAR FREE, DEXTRIN,) 3 gram/3.8 gram powd Stir 2 teaspoonfuls into 4-8 oz of beverage or soft food daily Cholecalciferol, Vitamin D3, 1,000 unit cap Take 1 capsule by mouth once daily. cloZAPine (CLOZARIL) 100 mg tablet take one tablet at noon, 2 tablets at 3 PM and 3 tablets at Bedtime albuterol HFA (VENTOLIN HFA) 90 mcg/actuation inhaler Inhale 2 Puffs as instructed every 4 hours as needed for Wheezing/Shortness of Breath. desvenlafaxine ER (PRISTIQ) 50 mg 24 hr tablet Take 50 mg by mouth once daily. Lancets lancets test BS twice daily 2 days a week- dx 250.00 - non-insulin risperiDONE orally disintegrating (RISPERDAL M) 2 mg disintegrating tablet Take 2 mg by mouth once daily. blood sugar diagnostic (FREESTYLE LITE STRIPS) test strip test BS twice daily - dx - 250.00 -insulin Yes clonazePAM (KLONOPIN) 1 mg tablet Take 0.5 mg Bid, 1 mg po at HS insulin needles, DISPOSABLE, (PEN NEEDLE) 31 X 5/16 ndle Use one needle per dose. Once per day. Blood-Glucose Meter (FREESTYLE LITE METER) monitoring kit Used once daily to check blood sugar. 250.00 risperidone (RISPERDAL CONSTA) 50 mg/2 mL INTRAMUSC. injection Inject 2 mL intramuscularly every 2 weeks. tiotropium (SPIRIVA WITH HANDIHALER) 18 mcg inhalation capsule Inhale 1 capsule as instructed once daily. Use with handihaler. Per Dr. James LOPEZ DISKUS 250 mcg/actuation dsdv INHALE ONE PUFF BY MOUTH TWICE DAILY DIRECTED No current facility-administered medications for this visit. ALLERGIES: ALLERGIES No Known Allergies PAST MEDICAL HISTORY Diagnosis Date - Bilateral pneumonia 07/23/2018 Admit [facility]: pneumococcal suspected, neg culture. + rhinovirus - Constipation - COPD (chronic obstructive pulmonary disease) (HCC) - Diabetes 1.5, managed as type 2 ([facility]) found at [facility], pt was on metformin for a while but taken off - pt never told if she had DM or not - Major depressive disorder, recurrent episode, unspecified - Nonspecific elevation of levels of transaminase or lactic acid dehydrogenase (LDH) - LIDA (obstructive sleep apnea) - Pneumonia - Schizophreniform disorder, chronic condition (HCC) - Simple endometrial hyperplasia without atypia mirena IUD 01/2011 PAST SURGICAL HISTORY Procedure Laterality Date - COLONOSCOPY W/BX 12/19/2016 Normal colonoscopy-10 year follow-up - PAST SURGICAL HISTORY OF 1982 corrective jaw surgery - REMOVAL GALLBLADDER 1998 open FAMILY HISTORY Problem Relation Age of Onset - Psychiatry Mother depression - other (lung cancer) Paternal Grandfather - Psychiatry Brother schizophrenia - Diabetes Brother - Hypertension Brother - Psychiatry Sister deperssion Social History Marital status: Single Spouse name: Years of education: 14 Number of children: 0 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 REVIEW OF SYSTEMS GI: Negative for change in bowel habit : No history of dysuria, frequency or incontinence All other reviewed and negative other than HPI. HEALTH MAINTENANCE: Reviewed health maintenance issues today and recommended the following in detail. VITALS: BP 124/80 Pulse 117 Temp 36.4 ?C (97.5 ?F) (Tympanic) Wt 87.5 kg (193 lb) LMP 09/12/2017 SpO2 94% BMI 36.47 kg/m? Last 4 Encounter Wt Readings: Date: Wt: 08/12/2018 87.5 kg (193 lb) 08/06/2018 85.3 kg (188 lb) 07/20/2018 86.2 kg (190 lb) 07/17/2018 88.9 kg (196 lb) PHYSICAL EXAMINATION: General appearance: Well appearing, alert, in no acute distress, well-hydrated, well nourished. Skin: Skin color, texture, turgor normal, no suspicious rashes or lesions Head: Normocephalic, no masses, lesions, tenderness or abnormalities Lungs: Lungs clear to auscultation. No wheezing, rhonchi, rales Heart: RRR without murmur, gallop, or rubs. No ectopy Abdomen: Normal abdominal exam, Abdomen soft, non-tender. Bowel sounds normal. No masses, organomegaly Extremities: No deformities, edema, skin discoloration, clubbing or cyanosis. Good capillary refill. Musculoskeletal: No joint swelling, deformity, or tenderness Peripheral pulses: Normal Wrap in place over left hand from wound care. No edema or red streaks ASSESSMENT/PLAN: 1. Leukocytosis, unspecified type - ICD9: 288.60, ICD10: D72.829 (primary diagnosis) - recheck cbc next week. 2. Open wound of left hand with complication, initial encounter - ICD9: 882.1, ICD10: S61.402A - call If any issues. 3. Pneumonia of both upper lobes due to infectious organism (HCC) - ICD9: 483.8, ICD10: J18.1 - call if any issues. 4. COPD with exacerbation (HCC) - ICD9: 491.21, ICD10: J44.1 - call if worsens. 5. Schizophreniform disorder, chronic condition (HCC) - ICD9: 295.42, ICD10: F20.81 - says she has trouble with things sliding by-discussed that she should contact her psychiatrst 6. Type 2 diabetes mellitus with diabetic nephropathy, with long-term current use of insulin (HCC) - ICD9: 250.40, 583.81, V58.67, ICD10: E11.21, Z79.4 Controlled. - Continue current medications Boris Jones MD RTO in two months and prn. Referring Provider: SELF [[id number]] Allergies As of Date: 08/12/2018 (No Known Allergies) Date Reviewed: 08/12/2018 Reviewed by: Nisha Angelo Ma - Fully Assessed Reason for Visit: Recheck [92] Primary Visit Diagnosis:Leukocytosis, unspecified type [D72.829] Other Visit Diagnoses:Open wound of left hand with complication, initial encounter [S61.402A] Pneumonia of both upper lobes due to infectious organism (HCC) [J18.1] COPD with exacerbation (HCC) [J44.1] Schizophreniform disorder, chronic condition (HCC) [F20.81] Type 2 diabetes mellitus with diabetic nephropathy, with long-term current use of insulin ([facility]) [E11.21, Z79.4] Prescriptions as of 08/12/2018 Sig: COMPOUNDED PRESCRIPTION Consult [facility] Wound Center: lef* BENZONATATE 100 MG CAPSULE Take 1 capsule by mouth three* OMEGA-3 FATTY ACIDS 1,000 MG * Take 1 capsule by mouth once * INSULIN SYRINGE-NEEDLE U-100 * Use as directed daily FLUTICASONE 100 MCG-VILANTERO* Inhale 1 Inhalation as instru* OLOPATADINE 0.1 % EYE DROPS Use 1 Drop in the left eye tw* COMPOUNDED PRESCRIPTION BIPAP of 09/19 on 3L oxygen pe* GLIPIZIDE 5 MG TABLET TAKE 1 TABLET TWICE A DAY POTASSIUM CHLORIDE ER 20 MEQ * TAKE 1 TABLET BY MOUTH DAILY FERROUS GLUCONATE 324 MG (38 * TAKE 1 TABLET BY MOUTH TWICE * METFORMIN 500 MG TABLET TAKE 2 TABLETS BY MOUTH TWICE* PRAVASTATIN 20 MG TABLET TAKE 1 TABLET BY MOUTH ONCE D* LUBIPROSTONE 24 MCG CAPSULE Take 1 capsule by mouth twice* MILK OF MAGNESIA 400 MG/5 ML * TAKE 15ML BY MOUTH DAILY N* LANTUS U-100 INSULIN 100 UNIT* Give 24 units subq daily at 4* STOOL SOFTENER 100 MG CAPSULE TAKE 1 CAPSULE TWICE A DAY ASPIRIN 325 MG TABLET,DELAYED* Take 1 tablet by mouth once d* ACETAMINOPHEN 500 MG TABLET Take 1 tablet by mouth daily * FUROSEMIDE 20 MG TABLET Take 1 tablet by mouth once d* WHEAT DEXTRIN 3 GRAM/3.8 GRAM* Stir 2 teaspoonfuls into 4-8 * CHOLECALCIFEROL (VITAMIN D3) * Take 1 capsule by mouth once * CLOZAPINE 100 MG TABLET take one tablet at noon, 2 ta* ALBUTEROL SULFATE HFA 90 MCG/* Inhale 2 Puffs as instructed * DESVENLAFAXINE SUCCINATE ER 5* Take 50 mg by mouth once ziggy* LANCETS test BS twice daily 2 days a * RISPERIDONE 2 MG DISINTEGRATI* Take 2 mg by mouth once daily. BLOOD SUGAR DIAGNOSTIC STRIPS test BS twice daily - dx - 25* CLONAZEPAM 1 MG TABLET Take 0.5 mg Bid, 1 mg po at HS PEN NEEDLE, DIABETIC 31 GAUGE* Use one needle per dose. Once* BLOOD-GLUCOSE METER KIT Used once daily to check bloo* * RISPERIDONE MICROSPHERES 50 M* Inject 2 mL intramuscularly e* TIOTROPIUM BROMIDE 18 MCG CAP* Inhale 1 capsule as instructe* FLOVENT DISKUS 250 MCG/ACTUAT* INHALE ONE PUFF BY MOUTH TWIC* Problem List As Of Date 08/12/2018 Noted Resolved Schizophreniform disorder, chronic condition (H* Priority: Mild More... Other abnormal glucose [R73.09] 04/29/2018 Priority: A More... DM w/o Complication Type II [E11.9] INVALID FOR*02/22/2014 Priority: Moderate Gastritis [K29.70] INVALID FOR* Routine general medical examination at a health*INVALID FOR*11/26/2011 Class: Chronic More... Routine gynecological examination [Z01.419] INVALID FOR*11/26/2011 Class: Chronic More... Vitamin D deficiency [E55.9] INVALID FOR* Priority: A More... Liver Function Test Abnormality [R94.5] INVALID FOR* More... 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 Encounter for screening for malignant neoplasm *INVALID FOR* Postmenopausal bleeding [N95.0] INVALID FOR* More... Acute diastolic CHF (congestive heart failure) *INVALID FOR* More... Obesity, Class II, BMI 35-39.9 [E66.9] INVALID FOR* Pneumonia of both upper lobes due to infectious*INVALID FOR*08/06/2018 H/O open hand wound [Z87.828] INVALID FOR* More... Disposition: Return in about 2 months (around 10/12/2018). Follow-up and Disposition History Recorded Encounter Status:Closed by BORIS JONES MD on 08/12/18 PROGRESS Observed: 08/12/2018 Status: COMPLETED Source: [place] 8:13 AM [facility] [place] REPOSITORY HNO ID: [id number] Author: Asia (Rn) Indra Service: (none) Author Type: Registered Nurse Type: Progress Notes Filed: 08/12/2018 8:25 AM Note Text: TRANSITION CARE MANAGEMENT (TCM) FOLLOW-UP NOTE Provider Action/FYI Wound Center debrided left hand wound and dsg w/ Mague every M-W-F No cough or SOB, coming in today to check lungs and O2 Sat BS this morning was 136 Evening BS: 104, 134, [address] Lara on Friday for left finger fx recheck Patient identified by name and date of : YES Spoke to Ezio Summary: Seen at [facility] Wound Center yesterday, left hand wound debrided and using Mague every other day. Patient will go to Wound Center every M-W-F for dressing changes. States patient is not coughing, no SOB or use of rescue inhaler BS this morning was 136 Evening BS: 104, 134, 184 Savings Teller plan for next outreach: Will follow up one week Signature Asia Burrell RN August 12, 2018 PAVITHRATOUTRANNACH Observed: 08/12/2018 Status: COMPLETED Source: [place] 12:00 AM [facility] REPOSITORY Patient Outreach (FAMPWS) BRITTNEE LE ([id number]) 1965 F Date Time Provider Department 08/12/18 ASIA BURRELL (RAMÓN) FAMPWS During your visit today, we recorded the following information about you: Asia Burrell RN 08/12/2018 8:25 AM Signed TRANSITION CARE MANAGEMENT (TCM) FOLLOW-UP NOTE Provider Action/FYI Wound Center debrided left hand wound and dsg w/ Mague every M-W-F No cough or SOB, coming in today to check lungs and O2 Sat BS this morning was 136 Evening BS: 104, 134, [address] Lara on Friday for left finger fx recheck Patient identified by name and date of : YES Spoke to Ezio Summary: Seen at [facility] Wound Center yesterday, left hand wound debrided and using Mague every other day. Patient will go to Wound Center every M-W-F for dressing changes. 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 Up [3610] Cmt: TCM F/U #1 D/C 07/29 Reason For Visit History Recorded Visit Diagnosis:H/O open hand wound [Z87.828] Prescriptions as of 08/12/2018 Sig: COMPOUNDED PRESCRIPTION Consult [facility] Wound Center: lef* BENZONATATE 100 MG CAPSULE Take 1 capsule by mouth three* OMEGA-3 FATTY ACIDS 1,000 MG * Take 1 capsule by mouth once * INSULIN SYRINGE-NEEDLE U-100 * Use as directed daily TIOTROPIUM BROMIDE 18 MCG CAP* Inhale 1 capsule as instructe* FLUTICASONE 100 MCG-VILANTERO* Inhale 1 Inhalation as instru* OLOPATADINE 0.1 % EYE DROPS Use 1 Drop in the left eye tw* COMPOUNDED PRESCRIPTION BIPAP of 09/19 on 3L oxygen pe* GLIPIZIDE 5 MG TABLET TAKE 1 TABLET TWICE A DAY POTASSIUM CHLORIDE ER 20 MEQ * TAKE 1 TABLET BY MOUTH DAILY FERROUS GLUCONATE 324 MG (38 * TAKE 1 TABLET BY MOUTH TWICE * METFORMIN 500 MG TABLET TAKE 2 TABLETS BY MOUTH TWICE* PRAVASTATIN 20 MG TABLET TAKE 1 TABLET BY MOUTH ONCE D* LUBIPROSTONE 24 MCG CAPSULE Take 1 capsule by mouth twice* MILK OF MAGNESIA 400 MG/5 ML * TAKE 15ML BY MOUTH DAILY N* LANTUS U-100 INSULIN 100 UNIT* Give 24 units subq daily at 4* STOOL SOFTENER 100 MG CAPSULE TAKE 1 CAPSULE TWICE A DAY ASPIRIN 325 MG TABLET,DELAYED* Take 1 tablet by mouth once d* ACETAMINOPHEN 500 MG TABLET Take 1 tablet by mouth daily * FUROSEMIDE 20 MG TABLET Take 1 tablet by mouth once d* WHEAT DEXTRIN 3 GRAM/3.8 GRAM* Stir 2 teaspoonfuls into 4-8 * CHOLECALCIFEROL (VITAMIN D3) * Take 1 capsule by mouth once * CLOZAPINE 100 MG TABLET take one tablet at noon, 2 ta* ALBUTEROL SULFATE HFA 90 MCG/* Inhale 2 Puffs as instructed * FLOVENT DISKUS 250 MCG/ACTUAT* INHALE ONE PUFF BY MOUTH TWIC* DESVENLAFAXINE SUCCINATE ER 5* Take 50 mg by mouth once ziggy* LANCETS test BS twice daily 2 days a * RISPERIDONE 2 MG DISINTEGRATI* Take 2 mg by mouth once daily. BLOOD SUGAR DIAGNOSTIC STRIPS test BS twice daily - dx - 25* CLONAZEPAM 1 MG TABLET Take 0.5 mg Bid, 1 mg po at HS PEN NEEDLE, DIABETIC 31 GAUGE* Use one needle per dose. Once* BLOOD-GLUCOSE METER KIT Used once daily to check bloo* * RISPERIDONE MICROSPHERES 50 M* Inject 2 mL intramuscularly e* Problem List As Of Date 08/12/2018 Noted Resolved Schizophreniform disorder, chronic condition (H* Priority: Mild More... Other abnormal glucose [R73.09] 04/29/2018 Priority: A More... DM w/o Complication Type II [E11.9] INVALID FOR*02/22/2014 Priority: Moderate Gastritis [K29.70] INVALID FOR* Routine general medical examination at a [facility]*INVALID FOR*11/26/2011 Class: Chronic More... Routine gynecological examination [Z01.419] INVALID FOR*11/26/2011 Class: Chronic More... Vitamin D deficiency [E55.9] INVALID FOR* Priority: A More... Liver Function Test Abnormality [R94.5] INVALID FOR* More... 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 Encounter for screening for malignant neoplasm *INVALID FOR* Postmenopausal bleeding [N95.0] INVALID FOR* More... Acute diastolic CHF (congestive heart failure) *INVALID FOR* More... Obesity, Class II, BMI 35-39.9 [E66.9] INVALID FOR* Pneumonia of both upper lobes due to infectious*INVALID FOR*08/06/2018 H/O open hand wound [Z87.828] INVALID FOR* More... Encounter Status:Closed by ASIA BURRELL on 08/12/18 WOUND CTR HISTORY Observed: 08/11/2018 Status: F Source: [facility] 11:02 AM [facility] REPOSITORY [facility] [address] [place] [address] Wound Ctr History AND Physical 08/11/18 1048 MR#: [id number] Acct: [id number] Name: BRITTNEE LE Rep #: [id number] : 1965 52 From: Shlomo Wilkerson MD PCP: Boris Jones MD Status: REG RCR Y Location: WC (1) Puncture wound, hand Status: Acute Current Visit: Yes Qualifiers: Encounter type: initial encounter Code(s): S61.439A - Puncture wound without foreign body of unspecified hand, initial encounter (2) FTT (failure to thrive) in adult Status: Chronic Current Visit: Yes Code(s): R62.7 - Adult failure to thrive (3) COPD (chronic obstructive pulmonary disease) Status: Chronic Current Visit: No Code(s): J44.9 - Chronic obstructive pulmonary disease, unspecified (4) Hyperlipidemia Status: Chronic Current Visit: No Code(s): E78.5 - Hyperlipidemia, unspecified (5) Diabetes mellitus type 2 in obese Status: Chronic Current Visit: No Code(s): E11.9 - Type 2 diabetes mellitus without complications; E66.9 - Obesity, unspecified (6) HTN (hypertension) Status: Chronic Current Visit: No Code(s): I10 - Essential (primary) hypertension (7) Schizophrenia Status: Chronic Current Visit: No Code(s): F20.9 - Schizophrenia, unspecified History of Present Illness Date of Service: 08/11/18 Chief Complaint: Puncture wound of the left hand History of Wound: This is a 52-year-old female who presents with a traumatic wound to the left hand. The wound is located on the webspace at the base of the left thumb. It occurred on July 18 as the result of slamming her left hand in a car door. Since that time, the patient has been treated by her primary care physician, which has included the use of Neosporin topically. Apparently, the patient was also treated with a course of oral antibiotics. Since the time of her injury, the patient has been admitted at [facility] and treatment for bacterial pneumonia. Records from that admission have been reviewed. She was hospitalized for a total of 7 days. The medical problems identified during that hospital stay were chronic obstructive pulmonary disease exacerbation, pneumonia, and hypoxic respiratory failure. An x-ray of the left hand which was performed on July 18, 2018, reveals minimally displaced comminuted fracture of the distal phalanx of the left fifth digit. A splint has been previously implemented. Past Medical History Past Medical History: Chronic Problems Nonproductive cough (Chronic) FTT (failure to thrive) in adult (Chronic) COPD (chronic obstructive pulmonary disease) (Chronic) Hyperlipidemia (Chronic) Diabetes mellitus type 2 in obese (Chronic) HTN (hypertension) (Chronic) Schizophrenia (Chronic) Past Medical History: The patient has a history of schizophrenia, failure to thrive, chronic obstructive pulmonary disease, diabetes mellitus, hypertension, hyperlipidemia, and congestive heart failure. Her history is negative for myocardial infarction, renal disease, cancer, and hyperlipidemia. Surgical History: - - She has previously undergone cholecystectomy and mandibular surgery. She is a [id number]. Allergies/Adverse Reactions: Allergies No Known Allergies Allergy (Verified 07/22/18 09:30) Home Medications: Ambulatory Orders Medication Instructions Recorded Clozapine [Clozaril] 100 mg PO LUNCH 03/28/14 Metformin HCl [Glucophage] 1,000 mg PO BID 03/28/14 Risperidone [Risperdal] 2 mg PO QHS 03/28/14 - Family History Paternal - - from a farm accident Maternal No pertinent history Social History: The patient lives in a intermediate. She denies use of alcohol and tobacco products. She is single. Lives: - - jail Smoking Status: Former smoker Tobacco Use: Non-smoker Alcohol: None Drugs: None Review of Systems Constitutional: Denies: Chills, Fever, Weight Change Eyes: Denies: Pain, Vision Change HEENT: Denies: Difficulty Hearing, Difficulty Swallowing, Sinus Congestion Cardiovascular: Denies: Chest Pain, Palpitations Respiratory: Denies: Cough, Shortness of Breath Gastrointestinal: Denies: Diarrhea, Nausea, Vomiting Genitourinary: Denies: Dysuria, Hematuria Endocrine: Denies: Heat/ Cold Intolerance, Polydipsia, Polyuria Hematologic/ Lymphatic: Denies: Easy Bruising, Easy Bleeding - Physical Exam Vital Signs Temp Pulse Resp BP 98.0 F 112 H 18 125/74 H 08/11/18 09:46 10 09:46 08/11/18 09:46 08/11/18 09:46 General: Alert, Oriented x3, Cooperative, No apparent distress, Well developed, Well nourished HEENT: Atraumatic, PERRLA, EOMI, Normocephalic Oral: Moist Mucosa, No Gingival or Mucosal Lesions/ Ulcerations Neck: Supple, No JVD, Negative Carotid Bruits, Negative Hepatojugular Reflux, No Nodes, No Nuchal Rigidity, Trachea Midline Lungs: Clear to auscultation, Normal air movement, No rhonchi, No wheeze, No rales Cardiovascular: Regular rate, Regular Rhythm, Normal S1, Normal S2, No murmurs Abdomen: Soft, Non Tender, Non-Distended, Obese Extremities: No clubbing, No cyanosis, No edema, No Calf Tenderness, - - A linear wound is noted in the webspace at the base of the left thumb. Dimensions are documented elsewhere. The wound is narrow and somewhat superficial. There is no sign of infection or cellulitis. There is a mild amount of bioburden. Wound margins appear to be somewhat macerated. Skin: No rashes Wound Measurements and Assessment WC - Nurse 1 - General Ulcer Measurement Start: 08/11/18 09:35 Freq: Status: Active Protocol: Activity Type Activity Date Activity User E-Sign Co-Sign Detail Recorded Client Recorded Date Recorded By Document 08/11/18 09:46 DV [id number] 08/11/18 10:10 DV Wound Center Nurse 1 [Ulcer Assessment] #1 LEFT MEDIAL THUMB- BASE -Combined with other wound No -Current Size (cm) - Length 1.5 Musculoskeletal: No Muscle Wasting Neurological: Cranial nerves II-XII grossly intact, Neuro grossly intact Psych/Mental Status: Normal Affect, Appropriate, Alert and oriented to time, place, person, mood and affect Debridement Note Laterality: Left - Hand Type of Debridement: Excisional debridement Anesthesia Used: 5% Lidocaine Gel Depth: Down to and including healthy tissue, in the subcutaneous layer Percentage of wound debrided: 100 Instrument Used: - - 1 mm curette Severity: Fat Layer Exposed Amount of bleeding with debridement: Mild Bleeding Controlled with: Compression and gauze Patient tolerated procedure well Assessment/Plan Active Problems Puncture wound, hand (Acute) FTT (failure to thrive) in adult (Chronic) Assessment: This is a 52-year-old female with a left hand penetrating injury. Recent laboratory studies have been obtained, and have been reviewed. Results are as follows: White blood count 14.3. However, this was performed at the time the patient was recently treated for pneumonia. Hemoglobin 13.0, hematocrit 40.4, platelets 195,000. Sodium 136, potassium 3.5, chloride 98, BUN 17, creatinine 0.72, glucose 133, hemoglobin A1c 7.5, calcium 9.3, magnesium 2.0, total protein 8.0, albumin 3.8, alkaline phosphatase 135, ALT 48, AST 20. Plan: We are to implement the use of Mague topically to the traumatic wound to the left hand. This will be applied every other day. Given the limitations of the patient's medical care at her intermediate, she is to return to the wound center several times weekly for dressing changes. Patient is to follow-up in 2 weeks for reassessment. At this time, there is no sign of infection or cellulitis at the site of her wound. Influenza vaccine was not administered today. The patient is not a smoker. She weighs 190 pounds. Her height is 5 feet 1 inch tall. BMI is 35.9, which places her in a class II obesity category. Weight loss has been recommended, and collaboration with her primary care physician has been recommended. 08/11/18 1102 <Electronically signed by Shlomo Wilkerson MD> Date Shlomo Wilkerson MD CC: Signed PROGRESS Observed: 08/07/2018 Status: COMPLETED Source: [place] 10:26 AM [facility] [place] REPOSITORY [facility] ID: [id number] Author: Asia (Rn) Indra Service: (none) Author Type: Registered Nurse Type: Progress Notes Filed: 08/07/2018 10:30 AM Note Text: PRIMARY CARE COORDINATION FOLLOW-UP NOTE Provider Action/FYI Wound Center appt 08/11 Instructed pt to apply antibiotic ointment and dry dressing over wound per Dr. Lara until Wound Center appt Patient identified by name and date of . YES Spoke to Group Shiraz Holguin CG Summary: [facility] pt's appt with Wound Center is next 08/11 at 9:00. Informed CG when pt saw Dr. Lara he instructed pt to apply antibiotic ointment and dry dressing over wound. Instructed to do that until she sees Wound Center on Friday, verbalized understanding with teach back. Savings Teller plan for next outreach: Will follow up as scheduled Signature Asia Burrell RN August 07, 2018 [place] Observed: 08/07/2018 Status: COMPLETED Source: [place] 12:00 AM [facility] REPOSITORY Patient Outreach (FAMPWS) BRITTNEE LE ([id number]) 1965 F Date Time Provider Department 08/07/18 ASIA BURRELL (RN) FAMPWS During your visit today, we recorded the following information about you: Asia Burrell RN 08/07/2018 10:30 AM Signed PRIMARY CARE COORDINATION FOLLOW-UP NOTE Provider Action/FYI Wound Center appt 08/11 Instructed pt to apply antibiotic ointment and dry dressing over wound per Dr. Lara until Wound Center appt Patient identified by name and date of . YES Spoke to Group Shiraz Holguin CG Summary: [facility] pt's appt with Wound Center is next 08/11 at 9:00. Informed CG when pt saw Dr. Lara he instructed pt to apply antibiotic ointment and dry dressing over wound. Instructed to do that until she sees Wound Center on Friday, verbalized understanding with teach back. 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 Care [3612] Prescriptions as of 08/07/2018 Sig: AMOXICILLIN 875 MG-POTASSIUM * Take 1 tablet by mouth twice * COMPOUNDED PRESCRIPTION Consult [facility] Wound Center: lef* BENZONATATE 100 MG CAPSULE Take 1 capsule by mouth three* OMEGA-3 FATTY ACIDS 1,000 MG * Take 1 capsule by mouth once * INSULIN SYRINGE-NEEDLE U-100 * Use as directed daily TIOTROPIUM BROMIDE 18 MCG CAP* Inhale 1 capsule as instructe* FLUTICASONE 100 MCG-VILANTERO* Inhale 1 Inhalation as instru* OLOPATADINE 0.1 % EYE DROPS Use 1 Drop in the left eye tw* COMPOUNDED PRESCRIPTION BIPAP of 09/19 on 3L oxygen pe* GLIPIZIDE 5 MG TABLET TAKE 1 TABLET TWICE A DAY POTASSIUM CHLORIDE ER 20 MEQ * TAKE 1 TABLET BY MOUTH DAILY FERROUS GLUCONATE 324 MG (38 * TAKE 1 TABLET BY MOUTH TWICE * METFORMIN 500 MG TABLET TAKE 2 TABLETS BY MOUTH TWICE* PRAVASTATIN 20 MG TABLET TAKE 1 TABLET BY MOUTH ONCE D* LUBIPROSTONE 24 MCG CAPSULE Take 1 capsule by mouth twice* MILK OF MAGNESIA 400 MG/5 ML * TAKE 15ML BY MOUTH DAILY N* LANTUS U-100 INSULIN 100 UNIT* Give 24 units subq daily at 4* STOOL SOFTENER 100 MG CAPSULE TAKE 1 CAPSULE TWICE A DAY Patient not taking: Reported on 03/16/2018 ASPIRIN 325 MG TABLET,DELAYED* Take 1 tablet by mouth once d* ACETAMINOPHEN 500 MG TABLET Take 1 tablet by mouth daily * FUROSEMIDE 20 MG TABLET Take 1 tablet by mouth once d* WHEAT DEXTRIN 3 GRAM/3.8 GRAM* Stir 2 teaspoonfuls into 4-8 * CHOLECALCIFEROL (VITAMIN D3) * Take 1 capsule by mouth once * CLOZAPINE 100 MG TABLET take one tablet at noon, 2 ta* ALBUTEROL SULFATE HFA 90 MCG/* Inhale 2 Puffs as instructed * FLOVENT DISKUS 250 MCG/ACTUAT* INHALE ONE PUFF BY MOUTH TWIC* DESVENLAFAXINE SUCCINATE ER 5* Take 50 mg by mouth once ziggy* LANCETS test BS twice daily 2 days a * RISPERIDONE 2 MG DISINTEGRATI* Take 2 mg by mouth once daily. BLOOD SUGAR DIAGNOSTIC STRIPS test BS twice daily - dx - 25* CLONAZEPAM 1 MG TABLET Take 0.5 mg Bid, 1 mg po at HS PEN NEEDLE, DIABETIC 31 GAUGE* Use one needle per dose. Once* BLOOD-GLUCOSE METER KIT Used once daily to check bloo* * RISPERIDONE MICROSPHERES 50 M* Inject 2 mL intramuscularly e* Problem List As Of Date 08/07/2018 Noted Resolved Schizophreniform disorder, chronic condition (H* Priority: Mild More... Other abnormal glucose [R73.09] 04/29/2018 Priority: A More... DM w/o Complication Type II [E11.9] INVALID FOR*02/22/2014 Priority: Moderate Gastritis [K29.70] INVALID FOR* Routine general medical examination at a health*INVALID FOR*11/26/2011 Class: Chronic More... Routine gynecological examination [Z01.419] INVALID FOR*11/26/2011 Class: Chronic More... Vitamin D deficiency [E55.9] INVALID FOR* Priority: A More... Liver Function Test Abnormality [R94.5] INVALID FOR* More... 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 Encounter for screening for malignant neoplasm *INVALID FOR* Postmenopausal bleeding [N95.0] INVALID FOR* More... Acute diastolic CHF (congestive heart failure) *INVALID FOR* More... Obesity, Class II, BMI 35-39.9 [E66.9] INVALID FOR* Pneumonia of both upper lobes due to infectious*INVALID FOR*08/06/2018 Encounter Status:Closed by ASIA BURRELL on 08/10/18 PROGRESS Observed: 08/06/2018 Status: COMPLETED Source: [place] 12:12 PM [facility] REPOSITORY [facility] ID: [id number] Author: Asia (Rn) Indra Service: (none) Author Type: Registered Nurse Type: Progress Notes Filed: 08/06/2018 12:16 PM Note Text: PRIMARY CARE COORDINATION IN OFFICE VISIT WITH PCP Patient has been identified by name and date of . PCP Assessment/Plan: Reviewed PCP plan with patient using Teach Back Discussed wound on left hand. Luan Nuno wants pt to be seen at [facility] Wound Center PCC Plan of Care: Patient concerns: Pt states she has used her rescue inhaler multiple times and her breathing is fair. PCC Interventions: [facility] Wound Center referral completed. Referral, order, face sheet and copy of insurance cards faxed to Wound Center. TC to [facility] Wound Center, left message to call PCC back regarding scheduling appt for patient. Next Office Visit: Visit date not found Plan For Next Call: One week Asia Burrell RN August 06, 2018 [place]GRESS Observed: 08/06/2018 Status: COMPLETED Source: [place] 11:30 AM [facility] REPOSITORY HNO ID: [id number] Author: Jodi Chawla (Rt) Nancy Wells Service: (none) Author Type: Dye House Vat Worker Type: Progress Notes Filed: 08/06/2018 11:30 AM Note Text: Radiology Service Progress Note PATIENT NAME: Brittnee Le DATE OF SERVICE: August 06, 2018 TIME: 11:30 AM PATIENT IDENTITY VERIFICATION COMPLETED USING TWO (2) METHODS: Patient confirmed name verbally and Date of . PATIENT GENDER DATA: Female. status: : No status: NO. PATIENT RELEVANT IMPLANT DATA REVIEWED: Not Applicable RADIOLOGY DEPARTMENT: General X-ray: Exam(s) Completed: Chest X-Ray Upper Extremity X-Ray(s): Hand, left : PERIPHERAL IV DATA: Not applicable SIGNED BY: RT Homero August 06, 2018 11:30 AM XR CHEST 2V FRONTAL/LAT Observed: 08/06/2018 Status: F Source: [place] 11:25 AM [facility] REPOSITORY * * *Final Report* * * DATE OF EXAM: Aug 06 2018 11:25AM WOX [id number] - XR CHEST 2V FRONTAL/LAT / PROCEDURE REASON: Pneumonia of right upper lobe due to Streptococcus pneumoniae (HCC) * * * * Physician Interpretation * * * * EXAMINATION: CHEST RADIOGRAPH (2 VIEW FRONTAL and LATERAL) CLINICAL HISTORY: Pneumonia of right upper lobe due to Streptococcus pneumoniae (HCC) MQ: XC2_5 Comparison: 03/16/2018 RESULT: Lines, tubes, and devices: None. Lungs and pleura: No consolidation. No lung mass. No pleural effusion. Atelectasis or fibrosis of the left lung base is stable. Cardiomediastinal silhouette: Normal cardiomediastinal silhouette. IMPRESSION: Stable chest. No acute process 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: P[facility] Transcribe Date/Time: Aug 06 2018 1:58P Dictated by : EUSEBIA MARIN MD This examination was interpreted and the report reviewed and electronically signed by: EUSEBIA MARIN MD on Aug 06 2018 1:59PM EST [id number] XR HAND 3V PA/LAT/OBL Observed: 08/06/2018 Status: F Source: [facility] 11:25 AM [facility] REPOSITORY * * *Final Report* * * DATE OF EXAM: Aug 06 2018 11:25AM WOX [id number] - XR HAND 3V PA/LAT/OBL LT / PROCEDURE REASON: Open wound of left hand with complication, initial encounter * * * * Physician Interpretation * * * * HISTORY: 52-YEAR-OLD FEMALE WITH Open wound of left hand with complication, initial encounter . Smashed left thumb in a car door x 2 weeks ago. Pain and swelling at the tuft. TECHNIQUE: XR HAND 3V PA/LAT/OBL LT Laterality: LEFT Number of different views (projections): 3 COMPARISON: None RESULT: Small osteophyte at the IP joint of the thumb. Bones and joints of the hand otherwise normal. No fracture. No erosions. IMPRESSION: NO ACUTE BONY ABNORMALITY. 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: [facility] Transcribe Date/Time: Aug 07 2018 12:38P Dictated by : REILLY OROZCO MD This examination was interpreted and the report reviewed and electronically signed by: REILLY OROZCO MD on Aug 07 2018 12:39PM EST [id number] CBC Collected: 08/06/2018 Status: F Source: [place] 10:46 AM [facility] REPOSITORY TYPE CODE TESTS RESULT OUT OF REFERENCE UNITS RANGE LAB WBC 3.70-11.00 k/uL WBC High 13.23 LAB RBC 3.90-5.20 m/uL RBC 4.57 LAB HGB 11.5-15.5 g/dL Hemoglobin 12.8 LAB HCT 36.0-46.0 % Hematocrit 41.5 LAB MCV 80.0-100.0 fL MCV 90.8 LAB MCH 26.0-34.0 pG MCH 28.0 LAB MCHC 30.5-36.0 g/dL MCHC 30.8 LAB RDWCV 11.5-15.0 % RDW-CV 14.3 LAB PLTCT 150-400 k/uL Platelet Count 190 LAB MPV 9.0-12.7 fL MPV 12.2 LAB ABSNUC <0.01 k/uL Absolute nRBC <0.01 Performed By: #### CBC, BMP #### [facility] [address] [place], [place] [address] BASIC METABOLIC PANL Collected: 08/06/2018 Status: F Source: [place] 10:46 AM [facility] REPOSITORY TYPE CODE TESTS RESULT OUT OF REFERENCE UNITS RANGE LAB GLU 74-99 mg/dL High Glucose 109 Result Comment: The [place] Diabetes Association (ADA) provides guidance for cutoff values for fasting glucose and random glucose. The ADA defines fasting as no caloric intake for at least 8 hours. Fas ting plasma glucose results between 100 to 125 mg/dL indicate increased risk for diabetes (prediabetes). Fasting plasma glucose results greater than or equal to 126 mg/dL meet the criteria for diagnosis of diabetes. In the absence of unequivocal hyperglycemia, results should be confirmed by repeat testing. In a patient with classic symptoms of hyperglycemia or hyperglycemic crisis, random plasma glucose results greater than or equal to 200 mg/dL meet the criteria for diagnosis of diabetes. Reference: Standards of Medical Care in Diabetes 2016, [place] [employer]. Diabetes Care. 2016.39(Suppl 1). LAB BUN 7-21 mg/dL BUN 10 LAB CRET 0.58-0.96 mg/dL Creatinine Low 0.52 LAB NA 136-144 mmol/L Sodium 138 LAB K 3.7-5.1 mmol/L Potassium 4.5 LAB CL 97-105 mmol/L Chloride 98 LAB CO2 22-30 mmol/L CO2 23 LAB AGAP 9-18 mmol/L Anion Gap 17 LAB CA 8.5-10.2 mg/dL Calcium, Total 9.9 LAB GFRAA eGFR- Amer. >60 LAB GFRNAA . eGFR-All Other Races >60 Result Comment: eGFR (Estimated GFR) Units of measure: mL/min/1.73 meters squared eGFR is derived from the reexpressed MDRD Study equation using the following parameters: serum creatinine, age, gender and race. The creatinine assay has been calibrated to be traceable to IDMS. An eGFR <60 mL/min/1.73m2 for >3 months is consistent with chronic kidney disease. Refer to KDOQI guidelines for clinical interpretation. In patients with unstable renal function, e.g. those with acute kidney injury, the eGFR may not accurately reflect actual GFR. Performed By: #### CBC, BMP #### [facility] [address] [place], [place] [address] PROGRESS Observed: 08/06/2018 Status: COMPLETED Source: [place] 9:48 AM [facility] REPOSITORY HNO ID: [id number] Author: Alma Orellana (FerdinandC) Yaakov Service: (none) Author Type: Physician Shoe Reconditioner Type: Progress Notes Filed: 08/06/2018 6:36 PM Note Text: 52 year old female with c/o here for : HOSPITAL/ER FOLLOW UP: Reason for visit: SOB, wheezing. Which facility: [facility] Date of visit: 07/22-07/29/18 Diagnosis: CAP, pneumococcal suspected, + rhinovirus on panel COPD exacerbation Secondary diagnoses: COPD HLD DM2 OBESITY HTN SCHIZOPRENIA Testing done: 07/24/18 Lab: 07/25/18 WBC 16.3, peaked on 07/23/18 and 19.5 and then proceeded to come down and subsequently after that. Last check was 1014 1814.1. Other measures a CBC remained within normal limits electrolytes fluctuated mildly but essentially were normal. She did have low potassium of 3.4 on 07/27/18. Urine creatinine also remained stable. BUN 17, creatinine 0.72 on 07/29/18. Respiratory culture grew mixed normal jenn from 10:15. Blood culture no growth ?5 days. Legionella and strep pneumonia testing and urine was negative. Respiratory panel was positive for rhinovirus. Influenza was negative. 07/22/18 CXR: 07/22/18 focal RUL consolidation 07/22/18 CT chest; bilateral peribronchial patchy infiltrates in association with bilateral bronchial pneumonia. Hepatomegaly with severe steatosis 07/23/18 CT soft tissue neck for stridor: WNL Treatment given: admit through ED with WBC 16.9, Na 132, glu 306, EKG: ST 128 without ischemia. Treated with rocephin and Zithromax. Admitted. IV ATB, fluids, aerosols, steroids, O2. Stay extended due to inability of intermediate to manage O2. Sats improved and was taken off oxygen on the day of discharge. Patient was to go to an extended care facility but they could not get process so patient was discharged to home from hospital. Current symptoms: feeling weak. Some cough. Little production. No SOB or chest pain. Feels anxious, like someone watching her. Swelling in left thumb from injury in car door 07/21/18. Now has a deep fissure in the left thumb webspace. Not sure when it developed. Caregiver says that it was not present when she originally injured her thumb. Patient cannot recall. Note from Dr. Lara 07/21/18 identify a laceration at the base of the thumb nail but no laceration the web space. 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 [facility], pt was on metformin for a while but taken off - pt never told if she had DM or not - Major depressive disorder, recurrent episode, unspecified - Nonspecific elevation of levels of transaminase or lactic acid dehydrogenase (LDH) - LIDA (obstructive sleep apnea) - Pneumonia - Schizophreniform disorder, chronic condition (HCC) - Simple endometrial hyperplasia without atypia mirena IUD 01/2011 PAST SURGICAL HISTORY Procedure Laterality Date - COLONOSCOPY W/BX 12/19/2016 Normal colonoscopy-10 year follow-up - PAST SURGICAL HISTORY OF 1982 corrective jaw surgery - REMOVAL GALLBLADDER 1998 open Social History Marital status: Single Spouse name: Years of education: 14 Number of children: 0 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 Social History Main Topics Smoking status: Former Smoker Packs/day: 2.00 Years: 20.00 Types: Cigarettes Quit date: 01/11/2014 Smokeless tobacco: Never Used Alcohol use: No Drug use: No Comment: leisaan- Teen yrs, but not now Sexual activity: No ACTIVE PROBLEM LIST Schizophreniform Disorder, Chronic Condition (Hcc) Gastritis Vitamin D Deficiency Liver Function Test Abnormality Hyperlipidemia Nonspecific Elevation of Levels of Transaminase Or Lactic Acid Dehydrogenase (Ldh) Copd (Chronic Obstructive Pulmonary Disease) (Hcc) Water Intoxication Type 2 Diabetes Mellitus With Diabetic Nephropathy (Hcc) Constipation Lida (Obstructive Sleep Apnea) Encounter for Screening for Malignant Neoplasm of Colon Postmenopausal Bleeding Acute Diastolic Chf (Congestive Heart Failure) (Hcc) Obesity, Class II, Bmi 35-39.9 Current Outpatient Prescriptions: benzonatate (TESSALON PERLE) 100 mg capsule Take 1 capsule by mouth three times daily as needed for Cough. Disp: 20 capsule Rfl: 0 omega-3 fatty acids (FISH OIL CONCENTRATE) 1,000 mg cap Take 1 capsule by mouth once daily. Disp: Rfl: tiotropium (SPIRIVA WITH HANDIHALER) 18 mcg inhalation capsule Inhale 1 capsule as instructed once daily. Use with handihaler. Per Dr. Ramirez Disp: Rfl: fluticasone-vilanterol (BREO ELLIPTA) 100-25 mcg/dose inhaler Inhale 1 Inhalation as instructed once daily. Per Dr. Ramirez Disp: Rfl: olopatadine (PATANOL) 0.1 % ophthalmic solution Use 1 Drop in the left eye twice daily as needed. Per Dr. Alvarenga Disp: 1 Bottle Rfl: 0 glipiZIDE (GLUCOTROL) 5 mg tablet TAKE 1 TABLET TWICE A DAY Disp: 60 tablet Rfl: 5 potassium chloride ER (K-DUR, KLOR-CON) 20 mEq tablet TAKE 1 TABLET BY MOUTH DAILY Disp: 30 tablet Rfl: 5 Ferrous Gluconate (FERGON) 324 mg (38 mg iron) tablet TAKE 1 TABLET BY MOUTH TWICE A DAY WITH MEALS. Disp: 6 tablet Rfl: 5 metFORMIN (GLUCOPHAGE) 500 mg tablet TAKE 2 TABLETS BY MOUTH TWICE DAILY WITH MEALS. . Disp: 112 tablet Rfl: 5 pravastatin (PRAVACHOL) 20 mg tablet TAKE 1 TABLET BY MOUTH ONCE DAILY. Disp: 28 tablet Rfl: 5 lubiprostone (AMITIZA) 24 mcg capsule Take 1 capsule by mouth twice daily with meals. Disp: 60 capsule Rfl: 11 MILK OF MAGNESIA 400 mg/5 mL suspension TAKE 15ML BY MOUTH DAILY NEEDED FOR CONSTIPATION (FOR NO BOWEL MOVEMENT AFTER 3 Disp: 360 mL Rfl: 5 LANTUS U-100 INSULIN 100 unit/mL injection Give 24 units subq daily at 4 PM or as directed Disp: 10 mL Rfl: 11 aspirin, enteric coated (ASPIRIN, ENTERIC COATED) 325 mg EC tablet Take 1 tablet by mouth once daily. Take with food. Disp: 30 tablet Rfl: 11 acetaminophen (TYLENOL EXTRA STRENGTH) 500 mg tablet Take 1 tablet by mouth daily at bedtime. Disp: 30 tablet Rfl: 11 furosemide (LASIX) 20 mg tablet Take 1 tablet by mouth once daily. Disp: 90 tablet Rfl: 3 wheat dextrin (BENEFIBER SUGAR FREE, DEXTRIN,) 3 gram/3.8 gram powd Stir 2 teaspoonfuls into 4-8 oz of beverage or soft food daily Disp: Rfl: Cholecalciferol, Vitamin D3, 1,000 unit cap Take 1 capsule by mouth once daily. Disp: Rfl: cloZAPine (CLOZARIL) 100 mg tablet take one tablet at noon, 2 tablets at 3 PM and 3 tablets at Bedtime Disp: Rfl: 0 albuterol HFA (VENTOLIN HFA) 90 mcg/actuation inhaler Inhale 2 Puffs as instructed every 4 hours as needed for Wheezing/Shortness of Breath. Disp: 1 Inhaler Rfl: 0 FLOVENT DISKUS 250 mcg/actuation dsdv INHALE ONE PUFF BY MOUTH TWICE DAILY DIRECTED Disp: 1 Inhaler Rfl: 12 desvenlafaxine ER (PRISTIQ) 50 mg 24 hr tablet Take 50 mg by mouth once daily. Disp: Rfl: clonazePAM (KLONOPIN) 1 mg tablet Take 0.5 mg Bid, 1 mg po at HS Disp: Rfl: risperidone (RISPERDAL CONSTA) 50 mg/2 mL INTRAMUSC. injection Inject 2 mL intramuscularly every 2 weeks. Disp: Rfl: 0 amoxicillin-clavulanic acid (AUGMENTIN) 875-125 mg per tablet Take 1 tablet by mouth twice daily. Disp: 20 tablet Rfl: 0 Insulin Syringe-Needle U-100 (BD INSULIN SYRINGE) 1 mL 28 gauge x 1/2 syrg Use as directed daily Disp: Rfl: COMPOUNDED PRESCRIPTION BIPAP of 09/[address] on [address] Dr[address] Ramirez Disp: Rfl: STOOL SOFTENER 100 mg capsule TAKE 1 CAPSULE TWICE A DAY (Patient not taking: Reported on 03/16/2018) Disp: 56 capsule Rfl: 3 Lancets lancets test BS twice daily 2 days a week- dx 250.00 - non-insulin Disp: 100 Each Rfl: 6 risperiDONE orally disintegrating (RISPERDAL M) 2 mg disintegrating tablet Take 2 mg by mouth once daily. Disp: Rfl: blood sugar diagnostic (FREESTYLE LITE STRIPS) test strip test BS twice daily - dx - 250.00 -insulin Yes Disp: 100 Strip Rfl: 6 insulin needles, DISPOSABLE, (PEN NEEDLE) 31 X 5/16 ndle Use one needle per dose. Once per day. Disp: 100 Each Rfl: 11 Blood-Glucose Meter (FREESTYLE LITE METER) monitoring kit Used once daily to check blood sugar. 250.00 Disp: 1 Each Rfl: 0 No current facility-administered medications for this visit. HPV EVERY 5 YEARS due on 10/03/2014 Hemoglobin A1C (%) Date Value 07/17/2018 7.2 04/30/2018 Test sent to [facility]. ) EXAM: BP 112/60 Pulse 100 Temp 36.2 ?C (97.2 ?F) (Tympanic) Resp 20 Wt 85.3 kg (188 lb) LMP 09/12/2017 BMI 35.52 kg/m? Pleasant Adult woman with mildly flat affect but otherwise cooperative in no acute distress. Alert and oriented all spheres. Speech normal. No deficits to learning or comprehension. Skin warm, dry, pink to lips and nailbeds. Normal turgor. Respirations regular and unlabored. No retractions. Speaking full sentences HEENT WNL. TM's clear. Nose and oropharynx free from injection or lesion. No cervical lymph nodes. Thyroid non-tender, no masses Chest CTA. HRRR without murmur or gallop. Extrem: no clubbing, cyanosis, edema. Extremities are warm and pink with prompt capillary refill. Patient has clubbed fingers with hypertrophy of the nail bases. Left thumb is swollen, evolving ecchymosis, tender over the distal joint. Between the thumb and index in the webspace patient has a deep laceration following the curve of the webspace which has granulation tissue on the edges but is deep enough that subcutaneous connective tissue showing. Patient has very slight swelling around the entire area and thumb. XR left hand: comminuted fx distal phalanx left thumb, non- displaced, no gas. CXR: looks clear, no pneumonia obvious. Pending radiologist. ASSESSMENT/PLAN: 1. Open wound of left hand with complication, initial encounter - ICD9: 882.1, ICD10: S61.402A (primary diagnosis) - XR HAND GENERAL 3V PA/LAT/OBL BILAT - COMPOUNDED PRESCRIPTION: referral to [facility] wound center. Bacitracin and dressing applied per nursing. - CBC - BASIC METABOLIC PNL - XR HAND GENERAL 3V PA/LAT/OBL LT - Complete Augmentin rx (2 days left) 2. Pneumonia of right upper lobe due to Streptococcus pneumoniae (HCC) - ICD9: 481, ICD10: J13 Clinically resolved. - XR CHEST 2V FRONTAL/LAT 3. 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 - Continue current medications - BASIC METABOLIC PNL 4. Hypokalemia - ICD9: 276.8, ICD10: E87.6 - BASIC METABOLIC PNL F/u 2 weeks. Realized after left we forgot to check O2 sat: will check at follow up. M Esteban Nuno PA-C PROGRESS Observed: 08/06/2018 Status: COMPLETED Source: [place] 9:32 AM [facility] REPOSITORY HNO ID: [id number] Author: Delfina Camacho LPN Service: (none) Author Type: (none) Type: Progress Notes Filed: 08/06/2018 6:36 PM Note Text: TRANSITION CARE MANAGEMENT (TCM) INITIAL CONTACT ? ? Provider Action/FYI: ? PLEASE FILE TESSALON PERLE SCRIPT ? ? Initial contact with patient post discharge, spoke to MICHELE Regan. Patient identified by name and . ? TRANSITION CARE MANAGEMENT: Date of Outreach: 07/31/2018 Date of Discharge 07/29/2018 Some recent data might be hidden ? SUMMARY: -Pt discharged from [facility] on 07/29. -Follow up appointment on walk in clinic with uLan Nuno on 08/06. -Medication review done with Latrice. -Admitted for: Rhinovirus (Acute) Pneumococcal pneumonia (Acute) COPD (chronic obstructive pulmonary disease) (Acute) ? CONCERNS: Frequent non-productive cough. Pt did not get the prescription for Tessalon Perles from [place]. TC to [place], states they had script on hold on 07/25 because pt wasn't discharged that day. Discussed with PCP, gave verbal order for Tessalon Perle 100 mg TID PRN #20 No RF. ? No chest pain or wheezing, used rescue inhaler x1 since discharge Pt reports weakness and fatigue ? NEW MEDICATIONS: Benzonatate [Tessalon Perle] 100 mg PO TID PRN #20 cap 0 RF Reason: COUGH ? MEDS HELD/DISCONTINUED: None ? BRIEF HOSPITAL COURSE: ? The patient is a 52 year old F presents with shortness of breath and wheezing. Patient was determined to be exacerbation. Chest x-ray was concerning for a right upper lobe infiltrate. Patient was started on steroids, bronchodilators and antibiotics. Patient continued be on oxygen and was initially planned to be discharged on the but the facility would not accept her being on oxygen. Patient was seen in consultation by pulmonology. She had a CAT scan of her neck showed no acute process given the patient's audible wheezing. Patient overall improved. Patient complete her course of antibiotics and steroids which will be discontinued prior to her being discharged. Patient is no longer hypoxic and requiring oxygen and since she does not require oxygen, patient can return to her intermediate. ? CNOV Observed: 08/06/2018 Status: COMPLETED Source: [place] 9:20 AM [facility] REPOSITORY Office Visit (FAMPWS) BRITTNEE LE ([id number]) 1965 F Date Time Provider Department 08/06/18 9:20 AM Alma NUNO (DIEGO) FAMPWS During your visit today, we recorded the following information about you: Temperature Pulse Respiration Blood pressure 97.2 degrees 110/minute 20/minute 112/60 Weight 85.3 kg Delfina Camacho LPN 08/06/2018 6:36 PM Signed TRANSITION CARE MANAGEMENT (TCM) INITIAL CONTACT ? ? Provider Action/FYI: ? PLEASE FILE OBED NAVARRO SCRIPT ? ? Initial contact with patient post discharge, spoke to MICHELE Regan. Patient identified by name and . ? TRANSITION CARE MANAGEMENT: Date of Outreach: 07/31/2018 Date of Discharge 07/29/2018 Some recent data might be hidden ? SUMMARY: -Pt discharged from [facility] on 07/29. -Follow up appointment on walk in clinic with Luan Nuno on 08/06. -Medication review done with Latrice. -Admitted for: Rhinovirus (Acute) Pneumococcal pneumonia (Acute) COPD (chronic obstructive pulmonary disease) (Acute) ? CONCERNS: Frequent non-productive cough. Pt did not get the prescription for Tessalon Perles from [place]. TC to [facility], states they had script on hold on 07/25 because pt wasn't discharged that day. Discussed with PCP, gave verbal order for Tessalon Perle 100 mg TID PRN #20 No RF. ? No chest pain or wheezing, used rescue inhaler x1 since discharge Pt reports weakness and fatigue ? NEW MEDICATIONS: Benzonatate [Tessalon Perle] 100 mg PO TID PRN #20 cap 0 RF Reason: COUGH ? MEDS HELD/DISCONTINUED: None ? BRIEF HOSPITAL COURSE: ? The patient is a 52 year old F presents with shortness of breath and wheezing. Patient was determined to be exacerbation. Chest x-ray was concerning for a right upper lobe infiltrate. Patient was started on steroids, bronchodilators and antibiotics. Patient continued be on oxygen and was initially planned to be discharged on the but the facility would not accept her being on oxygen. Patient was seen in consultation by pulmonology. She had a CAT scan of her neck showed no acute process given the patient's audible wheezing. Patient overall improved. Patient complete her course of antibiotics and steroids which will be discontinued prior to her being discharged. Patient is no longer hypoxic and requiring oxygen and since she does not require oxygen, patient can return to her intermediate. ? Alma Nuno PA-C 08/06/2018 6:36 PM Signed 52 year old female with c/o here for : HOSPITAL/ER FOLLOW UP: Reason for visit: SOB, wheezing. Which facility: [facility] Date of visit: 07/22-07/29/18 Diagnosis: CAP, pneumococcal suspected, + rhinovirus on panel COPD exacerbation Secondary diagnoses: COPD HLD DM2 OBESITY HTN SCHIZOPRENIA Testing done: 07/24/18 Lab: 07/25/18 WBC 16.3, peaked on 07/23/18 and 19.5 and then proceeded to come down and subsequently after that. Last check was 1014 1814.1. Other measures a CBC remained within normal limits electrolytes fluctuated mildly but essentially were normal. She did have low potassium of 3.4 on 07/27/18. Urine creatinine also remained stable. BUN 17, creatinine 0.72 on 07/29/18. Respiratory culture grew mixed normal jenn from 10:15. Blood culture no growth ?5 days. Legionella and strep pneumonia testing and urine was negative. Respiratory panel was positive for rhinovirus. Influenza was negative. 07/22/18 CXR: 07/22/18 focal RUL consolidation 07/22/18 CT chest; bilateral peribronchial patchy infiltrates in association with bilateral bronchial pneumonia. Hepatomegaly with severe steatosis 07/23/18 CT soft tissue neck for stridor: WNL Treatment given: admit through ED with WBC 16.9, Na 132, glu 306, EKG: ST 128 without ischemia. Treated with rocephin and Zithromax. Admitted. IV ATB, fluids, aerosols, steroids, O2. Stay extended due to inability of intermediate to manage O2. Sats improved and was taken off oxygen on the day of discharge. Patient was to go to an extended care facility but they could not get process so patient was discharged to home from hospital. Current symptoms: feeling weak. Some cough. Little production. No SOB or chest pain. Feels anxious, like someone watching her. Swelling in left thumb from injury in car door 07/21/18. Now has a deep fissure in the left thumb webspace. Not sure when it developed. Caregiver says that it was not present when she originally injured her thumb. Patient cannot recall. Note from Dr. Lara 07/21/18 identify a laceration at the base of the thumb nail but no laceration the web space. 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, pt was on metformin for a while but taken off - pt never told if she had DM or not - Major depressive disorder, recurrent episode, unspecified - Nonspecific elevation of levels of transaminase or lactic acid dehydrogenase (LDH) - LIDA (obstructive sleep apnea) - Pneumonia - Schizophreniform disorder, chronic condition (HCC) - Simple endometrial hyperplasia without atypia mirena IUD 01/2011 PAST SURGICAL HISTORY Procedure Laterality Date - COLONOSCOPY W/BX 12/19/2016 Normal colonoscopy-10 year follow-up - PAST SURGICAL HISTORY OF 1982 corrective jaw surgery - REMOVAL GALLBLADDER 1998 open Social History Marital status: Single Spouse name: Years of education: 14 Number of children: 0 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 Social History Main Topics Smoking status: Former Smoker Packs/day: 2.00 Years: 20.00 Types: Cigarettes Quit date: 01/11/2014 Smokeless tobacco: Never Used Alcohol use: No Drug use: No Comment: marijunan- Teen yrs, but not now Sexual activity: No ACTIVE PROBLEM LIST Schizophreniform Disorder, Chronic Condition (Hcc) Gastritis Vitamin D Deficiency Liver Function Test Abnormality Hyperlipidemia Nonspecific Elevation of Levels of Transaminase Or Lactic Acid Dehydrogenase (Ldh) Copd (Chronic Obstructive Pulmonary Disease) (Hcc) Water Intoxication Type 2 Diabetes Mellitus With Diabetic Nephropathy (Hcc) Constipation Lida (Obstructive Sleep Apnea) Encounter for Screening for Malignant Neoplasm of Colon Postmenopausal Bleeding Acute Diastolic Chf (Congestive Heart Failure) (Hcc) Obesity, Class II, Bmi 35-39.9 Current Outpatient Prescriptions: benzonatate (TESSALON PERLE) 100 mg capsule Take 1 capsule by mouth three times daily as needed for Cough. Disp: 20 capsule Rfl: 0 omega-3 fatty acids (FISH OIL CONCENTRATE) 1,000 mg cap Take 1 capsule by mouth once daily. Disp: Rfl: tiotropium (SPIRIVA WITH HANDIHALER) 18 mcg inhalation capsule Inhale 1 capsule as instructed once daily. Use with handihaler. Per Dr. Ramirez Disp: Rfl: fluticasone-vilanterol (BREO ELLIPTA) 100-25 mcg/dose inhaler Inhale 1 Inhalation as instructed once daily. Per Dr. Ramirez Disp: Rfl: olopatadine (PATANOL) 0.1 % ophthalmic solution Use 1 Drop in the left eye twice daily as needed. Per Dr. Avlarenga Disp: 1 Bottle Rfl: 0 glipiZIDE (GLUCOTROL) 5 mg tablet TAKE 1 TABLET TWICE A DAY Disp: 60 tablet Rfl: 5 potassium chloride ER (K-DUR, KLOR-CON) 20 mEq tablet TAKE 1 TABLET BY MOUTH DAILY Disp: 30 tablet Rfl: 5 Ferrous Gluconate (FERGON) 324 mg (38 mg iron) tablet TAKE 1 TABLET BY MOUTH TWICE A DAY WITH MEALS. Disp: 6 tablet Rfl: 5 metFORMIN (GLUCOPHAGE) 500 mg tablet TAKE 2 TABLETS BY MOUTH TWICE DAILY WITH MEALS. . Disp: 112 tablet Rfl: 5 pravastatin (PRAVACHOL) 20 mg tablet TAKE 1 TABLET BY MOUTH ONCE DAILY. Disp: 28 tablet Rfl: 5 lubiprostone (AMITIZA) 24 mcg capsule Take 1 capsule by mouth twice daily with meals. Disp: 60 capsule Rfl: 11 MILK OF MAGNESIA 400 mg/5 mL suspension TAKE 15ML BY MOUTH DAILY NEEDED FOR CONSTIPATION (FOR NO BOWEL MOVEMENT AFTER 3 Disp: 360 mL Rfl: 5 LANTUS U-100 INSULIN 100 unit/mL injection Give 24 units subq daily at 4 PM or as directed Disp: 10 mL Rfl: 11 aspirin, enteric coated (ASPIRIN, ENTERIC COATED) 325 mg EC tablet Take 1 tablet by mouth once daily. Take with food. Disp: 30 tablet Rfl: 11 acetaminophen (TYLENOL EXTRA STRENGTH) 500 mg tablet Take 1 tablet by mouth daily at bedtime. Disp: 30 tablet Rfl: 11 furosemide (LASIX) 20 mg tablet Take 1 tablet by mouth once daily. Disp: 90 tablet Rfl: 3 wheat dextrin (BENEFIBER SUGAR FREE, DEXTRIN,) 3 gram/3.8 gram powd Stir 2 teaspoonfuls into 4-8 oz of beverage or soft food daily Disp: Rfl: Cholecalciferol, Vitamin D3, 1,000 unit cap Take 1 capsule by mouth once daily. Disp: Rfl: cloZAPine (CLOZARIL) 100 mg tablet take one tablet at noon, 2 tablets at 3 PM and 3 tablets at Bedtime Disp: Rfl: 0 albuterol HFA (VENTOLIN HFA) 90 mcg/actuation inhaler Inhale 2 Puffs as instructed every 4 hours as needed for Wheezing/Shortness of Breath. Disp: 1 Inhaler Rfl: 0 FLOVENT DISKUS 250 mcg/actuation dsdv INHALE ONE PUFF BY MOUTH TWICE DAILY DIRECTED Disp: 1 Inhaler Rfl: 12 desvenlafaxine ER (PRISTIQ) 50 mg 24 hr tablet Take 50 mg by mouth once daily. Disp: Rfl: clonazePAM (KLONOPIN) 1 mg tablet Take 0.5 mg Bid, 1 mg po at HS Disp: Rfl: risperidone (RISPERDAL CONSTA) 50 mg/2 mL INTRAMUSC. injection Inject 2 mL intramuscularly every 2 weeks. Disp: Rfl: 0 amoxicillin-clavulanic acid (AUGMENTIN) 875-125 mg per tablet Take 1 tablet by mouth twice daily. Disp: 20 tablet Rfl: 0 Insulin Syringe-Needle U-100 (BD INSULIN SYRINGE) 1 mL 28 gauge x 1/2 syrg Use as directed daily Disp: Rfl: COMPOUNDED PRESCRIPTION BIPAP of 09/[address] on [address] Dr[address] Ramirez Disp: Rfl: STOOL SOFTENER 100 mg capsule TAKE 1 CAPSULE TWICE A DAY (Patient not taking: Reported on 03/16/2018) Disp: 56 capsule Rfl: 3 Lancets lancets test BS twice daily 2 days a week- dx 250.00 - non-insulin Disp: 100 Each Rfl: 6 risperiDONE orally disintegrating (RISPERDAL M) 2 mg disintegrating tablet Take 2 mg by mouth once daily. Disp: Rfl: blood sugar diagnostic (FREESTYLE LITE STRIPS) test strip test BS twice daily - dx - 250.00 -insulin Yes Disp: 100 Strip Rfl: 6 insulin needles, DISPOSABLE, (PEN NEEDLE) 31 X 5/16 ndle Use one needle per dose. Once per day. Disp: 100 Each Rfl: 11 Blood-Glucose Meter (FREESTYLE LITE METER) monitoring kit Used once daily to check blood sugar. 250.00 Disp: 1 Each Rfl: 0 No current facility-administered medications for this visit. HPV EVERY 5 YEARS due on 10/03/2014 Hemoglobin A1C (%) Date Value 07/17/2018 7.2 04/30/2018 Test sent to [facility]. ) EXAM: BP 112/60 Pulse 100 Temp 36.2 ?C (97.2 ?F) (Tympanic) Resp 20 Wt 85.3 kg (188 lb) LMP 09/12/2017 BMI 35.52 kg/m? Pleasant Adult woman with mildly flat affect but otherwise cooperative in no acute distress. Alert and oriented all spheres. Speech normal. No deficits to learning or comprehension. Skin warm, dry, pink to lips and nailbeds. Normal turgor. Respirations regular and unlabored. No retractions. Speaking full sentences HEENT WNL. TM's clear. Nose and oropharynx free from injection or lesion. No cervical lymph nodes. Thyroid non-tender, no masses Chest CTA. HRRR without murmur or gallop. Extrem: no clubbing, cyanosis, edema. Extremities are warm and pink with prompt capillary refill. Patient has clubbed fingers with hypertrophy of the nail bases. Left thumb is swollen, evolving ecchymosis, tender over the distal joint. Between the thumb and index in the webspace patient has a deep laceration following the curve of the webspace which has granulation tissue on the edges but is deep enough that subcutaneous connective tissue showing. Patient has very slight swelling around the entire area and thumb. XR left hand: comminuted fx distal phalanx left thumb, non- displaced, no gas. CXR: looks clear, no pneumonia obvious. Pending radiologist. ASSESSMENT/PLAN: 1. Open wound of left hand with complication, initial encounter - ICD9: 882.1, ICD10: S61.402A (primary diagnosis) - XR HAND GENERAL 3V PA/LAT/OBL BILAT - COMPOUNDED PRESCRIPTION: referral to [facility] wound center. Bacitracin and dressing applied per nursing. - CBC - BASIC METABOLIC PNL - XR HAND GENERAL 3V PA/LAT/OBL LT - Complete Augmentin rx (2 days left) 2. Pneumonia of right upper lobe due to Streptococcus pneumoniae (HCC) - ICD9: 481, ICD10: J13 Clinically resolved. - XR CHEST 2V FRONTAL/LAT 3. 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 - Continue current medications - BASIC METABOLIC PNL 4. Hypokalemia - ICD9: 276.8, ICD10: E87.6 - BASIC METABOLIC PNL F/u 2 weeks. Realized after left we forgot to check O2 sat: will check at follow up. DIEGO Andrade PA-C 08/06/2018 10:23 AM Signed Consult Wound Center [facility] for open wound left hand. Continue amoxicillin clavulonate until finished. Go to lab and xray from my office today and have blood drawn. You should hear from me within 48 hours on results. If you do not, call the office. Referring Provider: [facility] [[id number]] Allergies As of Date: 08/06/2018 (No Known Allergies) Date Reviewed: 08/06/2018 Reviewed by: Delfina Camacho LPN - Fully Assessed Reason for Visit: Hospital Follow Up [177] Cmt: [facility] admitted on 07/22/18 for pneumonia TCM Wound Check [133] Cmt: left hand thumb and crease of thumb open area Reason For Visit History Recorded Primary Visit Diagnosis:Open wound of left hand with complication, initial encounter [S61.402A] Other Visit Diagnoses:Type 2 diabetes mellitus with diabetic nephropathy, unspecified whether remote computer terminal operator insulin use (HCC) [E11.21] Hypokalemia [E87.6] Pneumonia of both upper lobes due to infectious organism (HCC) [J18.1] Rhinovirus infection [B34.8] Order(s):XR CHEST 2V FRONTAL/LAT [[id number]] Order #: [id number] FUTURE COMPOUNDED PRESCRIPTIONConsult [facility] Wound Center: left thumb webspace tear, granular tissue, swelling left thumb S61.402A Open wound of left hand with complication, initial encounter (primary encounter diagnosis) J13 Pneumonia of right upper lobe due to Streptococcus pneumoniae (HCC) E11.21 Type 2 diabetes mellitus with diabetic nephropathy, unspecified whether half-way insulin use (HCC)Disp: 1 EachRfl: 0 CBC [SQCBC] Order #: [id number] FUTURE BASIC METABOLIC PNL [SQBMP] Order #: [id number] FUTURE XR HAND GENERAL 3V PA/LAT/OBL LT [[id number]] Order #: [id number] FUTURE XR CHEST 2V FRONTAL/LAT [[id number]] Order #: [id number]. #:[id number] XR HAND GENERAL 3V PA/LAT/OBL LT [[id number]] Order #: [id number]. #:[id number] Prescriptions as of 08/06/2018 Sig: BENZONATATE 100 MG CAPSULE Take 1 capsule by mouth three* OMEGA-3 FATTY ACIDS 1,000 MG * Take 1 capsule by mouth once * TIOTROPIUM BROMIDE 18 MCG CAP* Inhale 1 capsule as instructe* FLUTICASONE 100 MCG-VILANTERO* Inhale 1 Inhalation as instru* OLOPATADINE 0.1 % EYE DROPS Use 1 Drop in the left eye tw* GLIPIZIDE 5 MG TABLET TAKE 1 TABLET TWICE A DAY POTASSIUM CHLORIDE ER 20 MEQ * TAKE 1 TABLET BY MOUTH DAILY FERROUS GLUCONATE 324 MG (38 * TAKE 1 TABLET BY MOUTH TWICE * METFORMIN 500 MG TABLET TAKE 2 TABLETS BY MOUTH TWICE* PRAVASTATIN 20 MG TABLET TAKE 1 TABLET BY MOUTH ONCE D* LUBIPROSTONE 24 MCG CAPSULE Take 1 capsule by mouth twice* MILK OF MAGNESIA 400 MG/5 ML * TAKE 15ML BY MOUTH DAILY N* LANTUS U-100 INSULIN 100 UNIT* Give 24 units subq daily at 4* ASPIRIN 325 MG TABLET,DELAYED* Take 1 tablet by mouth once d* ACETAMINOPHEN 500 MG TABLET Take 1 tablet by mouth daily * FUROSEMIDE 20 MG TABLET Take 1 tablet by mouth once d* WHEAT DEXTRIN 3 GRAM/3.8 GRAM* Stir 2 teaspoonfuls into 4-8 * CHOLECALCIFEROL (VITAMIN D3) * Take 1 capsule by mouth once * CLOZAPINE 100 MG TABLET take one tablet at noon, 2 ta* ALBUTEROL SULFATE HFA 90 MCG/* Inhale 2 Puffs as instructed * FLOVENT DISKUS 250 MCG/ACTUAT* INHALE ONE PUFF BY MOUTH TWIC* DESVENLAFAXINE SUCCINATE ER 5* Take 50 mg by mouth once ziggy* CLONAZEPAM 1 MG TABLET Take 0.5 mg Bid, 1 mg po at HS * RISPERIDONE MICROSPHERES 50 M* Inject 2 mL intramuscularly e* AMOXICILLIN 875 MG-POTASSIUM * Take 1 tablet by mouth twice * COMPOUNDED PRESCRIPTION Consult [facility] Wound Center: lef* INSULIN SYRINGE-NEEDLE U-100 * Use as directed daily COMPOUNDED PRESCRIPTION BIPAP of 09/19 on 3L oxygen pe* STOOL SOFTENER 100 MG CAPSULE TAKE 1 CAPSULE TWICE A DAY Patient not taking: Reported on 03/16/2018 LANCETS test BS twice daily 2 days a * RISPERIDONE 2 MG DISINTEGRATI* Take 2 mg by mouth once daily. BLOOD SUGAR DIAGNOSTIC STRIPS test BS twice daily - dx - 25* PEN NEEDLE, DIABETIC 31 GAUGE* Use one needle per dose. Once* BLOOD-GLUCOSE METER KIT Used once daily to check bloo* Problem List As Of Date 08/06/2018 Noted Resolved Schizophreniform disorder, chronic condition (H* Priority: Mild More... Other abnormal glucose [R73.09] 04/29/2018 Priority: A More... DM w/o Complication Type II [E11.9] INVALID FOR*02/22/2014 Priority: Moderate Gastritis [K29.70] INVALID FOR* Routine general medical examination at a health*INVALID FOR*11/26/2011 Class: Chronic More... Routine gynecological examination [Z01.419] INVALID FOR*11/26/2011 Class: Chronic More... Vitamin D deficiency [E55.9] INVALID FOR* Priority: A More... Liver Function Test Abnormality [R94.5] INVALID FOR* More... 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 Encounter for screening for malignant neoplasm *INVALID FOR* Postmenopausal bleeding [N95.0] INVALID FOR* More... Acute diastolic CHF (congestive heart failure) *INVALID FOR* More... Obesity, Class II, BMI 35-39.9 [E66.9] INVALID FOR* Pneumonia of both upper lobes due to infectious*INVALID FOR*08/06/2018 Other instructions from your clinician: Consult Wound Center [facility] for open wound left hand. Continue amoxicillin clavulonate until finished. Go to lab and xray from my office today and have blood drawn. You should hear from me within 48 hours on results. If you do not, call the office. Prescriptions ordered this encounter Disp Refills Start End COMPOUNDED PRESCRIPTION 1 Ea* 0 08/06/2018 Class: Print RX Sig: Consult [facility] Wound Center: left thumb webspace tear, granular tissue, swelling left thumb S61.402A Open wound of left hand with complication, initial encounter (primary encounter diagnosis) J13 Pneumonia of right upper lobe due to Streptococcus pneumoniae (HCC) E11.21 Type 2 diabetes mellitus with diabetic nephropathy, unspecified whether half-way insulin use (HCC) Medications Discontinued During This Encounter COMPOUNDED PRESCRIPTION 01/14/2018 08/06/2018 Class: Med Update Sig: Please discontinue Tylenol ES 500 mg daily at bedtime Disc: Reason for discontinue is not on file. amoxicillin-clavulanic acid (AUGMENT* 20 t* 0 07/21/2018 08/06/2018 Route: ORAL Sig: Take 1 tablet by mouth twice daily for 10 days. Disc: Reason for discontinue is not on file. Disposition: Return in about 2 weeks (around 08/20/2018). Follow-up and Disposition History Recorded Encounter Status:Closed by Alma NUNO PA-C on 08/06/18 CNPTOUTREACH Observed: 08/06/2018 Status: COMPLETED Source: [place] 12:00 AM [facility] REPOSITORY Patient Outreach (FAMPWS) BRITTNEE LE ([id number]) 1965 F Date Time Provider Department 08/06/18 [facility] (RN[facility] During your visit today, we recorded the following information about you: Asia Burrell RN 08/06/2018 12:16 PM Signed PRIMARY CARE COORDINATION IN OFFICE VISIT WITH PCP Patient has been identified by name and date of . PCP Assessment/Plan: Reviewed PCP plan with patient using Teach Back Discussed wound on left hand. Luan Nuno wants pt to be seen at [facility] Wound Center PCC Plan of Care: Patient concerns: Pt states she has used her rescue inhaler multiple times and her breathing is fair. PCC Interventions: [facility] Wound Center referral completed. Referral, order, face sheet and copy of insurance cards faxed to Wound Center. TC to [facility] Wound Center, left message to call PCC back regarding scheduling appt for patient. 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 [[id number]] Prescriptions as of 08/06/2018 Sig: AMOXICILLIN 875 MG-POTASSIUM * Take 1 tablet by mouth twice * COMPOUNDED PRESCRIPTION Consult [facility] Wound Center: lef* BENZONATATE 100 MG CAPSULE Take 1 capsule by mouth three* OMEGA-3 FATTY ACIDS 1,000 MG * Take 1 capsule by mouth once * INSULIN SYRINGE-NEEDLE U-100 * Use as directed daily TIOTROPIUM BROMIDE 18 MCG CAP* Inhale 1 capsule as instructe* FLUTICASONE 100 MCG-VILANTERO* Inhale 1 Inhalation as instru* OLOPATADINE 0.1 % EYE DROPS Use 1 Drop in the left eye tw* COMPOUNDED PRESCRIPTION BIPAP of 09/19 on 3L oxygen pe* GLIPIZIDE 5 MG TABLET TAKE 1 TABLET TWICE A DAY POTASSIUM CHLORIDE ER 20 MEQ * TAKE 1 TABLET BY MOUTH DAILY FERROUS GLUCONATE 324 MG (38 * TAKE 1 TABLET BY MOUTH TWICE * METFORMIN 500 MG TABLET TAKE 2 TABLETS BY MOUTH TWICE* PRAVASTATIN 20 MG TABLET TAKE 1 TABLET BY MOUTH ONCE D* LUBIPROSTONE 24 MCG CAPSULE Take 1 capsule by mouth twice* MILK OF MAGNESIA 400 MG/5 ML * TAKE 15ML BY MOUTH DAILY N* LANTUS U-100 INSULIN 100 UNIT* Give 24 units subq daily at 4* STOOL SOFTENER 100 MG CAPSULE TAKE 1 CAPSULE TWICE A DAY Patient not taking: Reported on 03/16/2018 ASPIRIN 325 MG TABLET,DELAYED* Take 1 tablet by mouth once d* ACETAMINOPHEN 500 MG TABLET Take 1 tablet by mouth daily * FUROSEMIDE 20 MG TABLET Take 1 tablet by mouth once d* WHEAT DEXTRIN 3 GRAM/3.8 GRAM* Stir 2 teaspoonfuls into 4-8 * CHOLECALCIFEROL (VITAMIN D3) * Take 1 capsule by mouth once * CLOZAPINE 100 MG TABLET take one tablet at noon, 2 ta* ALBUTEROL SULFATE HFA 90 MCG/* Inhale 2 Puffs as instructed * FLOVENT DISKUS 250 MCG/ACTUAT* INHALE ONE PUFF BY MOUTH TWIC* DESVENLAFAXINE SUCCINATE ER 5* Take 50 mg by mouth once ziggy* LANCETS test BS twice daily 2 days a * RISPERIDONE 2 MG DISINTEGRATI* Take 2 mg by mouth once daily. BLOOD SUGAR DIAGNOSTIC STRIPS test BS twice daily - dx - 25* CLONAZEPAM 1 MG TABLET Take 0.5 mg Bid, 1 mg po at HS PEN NEEDLE, DIABETIC 31 GAUGE* Use one needle per dose. Once* BLOOD-GLUCOSE METER KIT Used once daily to check bloo* * RISPERIDONE MICROSPHERES 50 M* Inject 2 mL intramuscularly e* Problem List As Of Date 08/06/2018 Noted Resolved Schizophreniform disorder, chronic condition (H* Priority: Mild More... Other abnormal glucose [R73.09] 04/29/2018 Priority: A More... DM w/o Complication Type II [E11.9] INVALID FOR*02/22/2014 Priority: Moderate Gastritis [K29.70] INVALID FOR* Routine general medical examination at a health*INVALID FOR*11/26/2011 Class: Chronic More... Routine gynecological examination [Z01.419] INVALID FOR*11/26/2011 Class: Chronic More... Vitamin D deficiency [E55.9] INVALID FOR* Priority: A More... Liver Function Test Abnormality [R94.5] INVALID FOR* More... 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 Encounter for screening for malignant neoplasm *INVALID FOR* Postmenopausal bleeding [N95.0] INVALID FOR* More... Acute diastolic CHF (congestive heart failure) *INVALID FOR* More... Obesity, Class II, BMI 35-39.9 [E66.9] INVALID FOR* Encounter Status:Closed by ASIA BURRELL on 08/06/18 CBC W/DIFF, AUTOMATED Collected: 08/04/2018 Status: F Source: [place] 9:37 AM [facility] REPOSITORY TYPE CODE TESTS RESULT OUT OF RANGE REFERENCE UNITS LAB L100.1000 4.4-11.0 K/mm3 High WBC 14.3 LAB L100.1200 4.2-5.4 M/mm3 Normal RBC 4.53 LAB L100.1300 12.0-15.0 g/dl Normal HGB 13.0 LAB L100.1400 37-47 % Normal HCT 40.4 LAB L100.1500 81-99 fL Normal MCV 89.2 LAB L100.1600 27.0-32.0 pg Normal MCH 28.7 LAB L100.1700 32-36 g/gl Normal MCHC 32.2 LAB L100.1810 11.6-14.6 % Normal RDW CV 14.3 LAB L100.1820 35.1-43.9 fl High RDW SD 45.7 LAB L100.1900 150-450 K/mm3 Normal PLT 195 LAB L100.2000 6.2-12.0 fl Normal MPV 10.1 LAB L100.2100 47-70 % High NEUT% 76.1 LAB L100.2200 19-41 % Low LY% 18.1 LAB L100.2300 0-10 % Normal MONO% 5.4 LAB L100.2400 0-5 % Normal EO% 0.0 LAB L100.2500 0-1 % Normal BASO% 0.1 LAB L100.2550 0.0-0.9 % Normal IM GRAN % 0.300 Result Comment: IG% - Immature Granulocytes (promyelocytes, myelocytes and metamyelocytes) > 1% indicates that a LEFT SHIFT is Present. LAB L100.2620 2.0-7.7 X10 3/uL High Absolute Neut 10.9 LAB L100.2720 0.83-4.51 X10 3/ul Normal Absolute Lymph 2.60 Performed By: #### L100.0100 #### [facility] [address] [place], [address] EMERGENCY DEPARTMENT Observed: 08/01/2018 Status: F Source: [place] SUMMARY 7:54 PM [facility] REPOSITORY [facility] Medical Records Department [address] [place] [address] Emergency Department Summary 07/18/181947 MR#: [id number] Acct: [id number] Name: BRITTNEE LE Rep #: [id number] : 1965 52 From: Dave Zimmer MD PCP: Boris Jones MD Status: DEP ER ADDENDUM by Dave Zimmer MD on 08/01/18 at 1953 Laceration length is 2 cm 08/01/181953 Date Dave Zimmer MD cc: Boris Jones MD * Signed - ER Visit Summary Date of Service: 07/18/18 Chief Complaint: Left thumb injury History of Present Illness: The patient is a 52 F who shut her left thumb in a car door. This happened about 2 hours prior to her presentation here. She sustained a small superficial laceration at the base of the thumb. She has painful range of motion. Denies any other symptoms. Last tetanus is unknown Physical Examination: Vital signs are reviewed. Left hand exam reveals tenderness at the base of the left thumb nail. There is a small superficial laceration at the base of the thumb. There is less than a 10% subungual hematoma under the thumbnail. Test Results: X-rays reveal a distal phalanx fracture of the left thumb Emergency Department Course and Treatment: The patient's tetanus is updated. Dermabond was used to close the wound at the base of the thumb. It was not deep. This is not an open fracture. I did not perform trephination because it is less than 10% of the nail. An AlumaFoam splint was placed on the thumb. She will use Tylenol or ibuprofen for pain. She will follow-up with her PCP. Treatment Plan: [] Disposition: Discharge Impression: Left distal phalanx fracture, left thumb, closed Superficial laceration, left thumb Dermabond by ED physician This note was generated with Appsperse dictation software. It may contain incorrect words, spelling, and punctuation that were not noted in review of the chart prior to signing ED Disposition - Plan for ED Patient: Disposition: Home or Assisted Living Chief Complaint: Laceration Instructions: ED Fx Finger Closed Referrals: Boris Jones MD [Primary Care Provider] - What to do if you have Problems For any increased pain, shortness of breath, bleeding, nausea or vomiting, chest pain, or any unexpected problems, contact your Primary Care Provider. Call [facility] ([phone]) or report to the closest Emergency Room. Call 911 if necessary. 07/18/18 6082 <Electronically signed by Dave Zimmer MD> Date Dave Zimmer MD Cosigner Signature (If Indicated): Date CC: Boris Jones MD PROGRESS Observed: 07/31/2018 Status: COMPLETED Source: [place] 9:52 AM [facility] REPOSITORY O ID: [id number] Author: Asia (Ramón) Indra Service: (none) Author Type: Registered Nurse Type: Progress Notes Filed: 07/31/2018 10:13 AM Note Text: TRANSITION CARE MANAGEMENT (TCM) INITIAL CONTACT Provider Action/FYI: PLEASE FILE TESSALON PERLE SCRIPT Initial contact with patient post discharge, spoke to MICHELE Regan. Patient identified by name and . TRANSITION CARE MANAGEMENT: Date of Outreach: 07/31/2018 Date of Discharge 07/29/2018 Some recent data might be hidden SUMMARY: -Pt discharged from [facility] on 07/29. -Follow up appointment on walk in clinic with Luan Nuno on 08/06. -Medication review done with Latrice. -Admitted for: Rhinovirus (Acute) Pneumococcal pneumonia (Acute) COPD (chronic obstructive pulmonary disease) (Acute) CONCERNS: Frequent non-productive cough. Pt did not get the prescription for Tessalon Perles from [facility]. TC to [facility], states they had script on hold on 07/25 because pt wasn't discharged that day. Discussed with PCP, gave verbal order for Tessalon Perle 100 mg TID PRN #20 No RF. No chest pain or wheezing, used rescue inhaler x1 since discharge Pt reports weakness and fatigue NEW MEDICATIONS: Benzonatate [Tessalon Perle] 100 mg PO TID PRN #20 cap 0 RF Reason: COUGH MEDS HELD/DISCONTINUED: None BRIEF HOSPITAL COURSE: The patient is a 52 year old F presents with shortness of breath and wheezing. Patient was determined to be exacerbation. Chest x-ray was concerning for a right upper lobe infiltrate. Patient was started on steroids, bronchodilators and antibiotics. Patient continued be on oxygen and was initially planned to be discharged on the but the facility would not accept her being on oxygen. Patient was seen in consultation by pulmonology. She had a CAT scan of her neck showed no acute process given the patient's audible wheezing. Patient overall improved. Patient complete her course of antibiotics and steroids which will be discontinued prior to her being discharged. Patient is no longer hypoxic and requiring oxygen and since she does not require oxygen, patient can return to her intermediate. The following prescriptions have been called to [facility] pharmacy 07/31/2018 at 10:10 AM by Asia Burrell RN. I spoke with Carla in the pharmacy. Pending Prescriptions Disp Refills BENZONATATE 100 MG CAPSULE 20 capsule 0 Sig: Take 1 capsule by mouth three times daily as needed for Cough. Asia Burrell RN July 31, 2018 10:10 AM [facility] Observed: 07/31/2018 Status: COMPLETED Source: [place] 12:00 AM [facility] REPOSITORY Patient Outreach (FAMPWS) BRITTNEE LE ([id number]) 1965 F Date Time Provider Department 07/31/18 ASIA BURRELL (RN) [facility] During your visit today, we recorded the following information about you: Asia Burrell RN 07/31/2018 10:13 AM Signed TRANSITION CARE MANAGEMENT (TCM) INITIAL CONTACT Provider Action/FYI: PLEASE FILE TESSALON PERLE SCRIPT Initial contact with patient post discharge, spoke to MICHELE Regan. Patient identified by name and . TRANSITION CARE MANAGEMENT: Date of Outreach: 07/31/2018 Date of Discharge 07/29/2018 Some recent data might be hidden SUMMARY: -Pt discharged from [facility] on 07/29. -Follow up appointment on walk in clinic with Luan Nuno on 08/06. -Medication review done with Latrice. -Admitted for: Rhinovirus (Acute) Pneumococcal pneumonia (Acute) COPD (chronic obstructive pulmonary disease) (Acute) CONCERNS: Frequent non-productive cough. Pt did not get the prescription for Tessalon Perles from [facility]. TC to [facility], states they had script on hold on 07/25 because pt wasn't discharged that day. Discussed with PCP, gave verbal order for Tessalon Perle 100 mg TID PRN #20 No RF. No chest pain or wheezing, used rescue inhaler x1 since discharge Pt reports weakness and fatigue NEW MEDICATIONS: Benzonatate [Tessalon Perle] 100 mg PO TID PRN #20 cap 0 RF Reason: COUGH MEDS HELD/DISCONTINUED: None BRIEF HOSPITAL COURSE: The patient is a 52 year old F presents with shortness of breath and wheezing. Patient was determined to be exacerbation. Chest x-ray was concerning for a right upper lobe infiltrate. Patient was started on steroids, bronchodilators and antibiotics. Patient continued be on oxygen and was initially planned to be discharged on the but the facility would not accept her being on oxygen. Patient was seen in consultation by pulmonology. She had a CAT scan of her neck showed no acute process given the patient's audible wheezing. Patient overall improved. Patient complete her course of antibiotics and steroids which will be discontinued prior to her being discharged. Patient is no longer hypoxic and requiring oxygen and since she does not require oxygen, patient can return to her intermediate. The following prescriptions have been called to [facility] pharmacy 07/31/2018 at 10:10 AM by Asia Burrell RN. I spoke with Carla in the pharmacy. Pending Prescriptions Disp Refills BENZONATATE 100 MG CAPSULE 20 capsule 0 Sig: Take 1 capsule by mouth three times daily as needed for Cough. Asia Burrell RN July 31, 2018 10:10 AM Allergies As of Date: 07/31/2018 (No Known Allergies) Date Reviewed: 07/21/2018 Reviewed by: Danette Dominguez RN - Fully Assessed Reason for Visit: Transition Of Care [4074] Primary Visit Diagnosis:Pneumonia of right upper lobe due to Streptococcus pneumoniae (HCC) [J13] Other Visit Diagnosis:COPD with exacerbation (HCC) [J44.1] Order(s):benzonatate (TESSALON PERLE) 100 mg capsuleTake 1 capsule by mouth three times daily as needed for Cough.Disp: 20 capsuleRfl: 0 Prescriptions as of 07/31/2018 Sig: BENZONATATE 100 MG CAPSULE Take 1 capsule by mouth three* OMEGA-3 FATTY ACIDS 1,000 MG * Take 1 capsule by mouth once * INSULIN SYRINGE-NEEDLE U-100 * Use as directed daily TIOTROPIUM BROMIDE 18 MCG CAP* Inhale 1 capsule as instructe* FLUTICASONE 100 MCG-VILANTERO* Inhale 1 Inhalation as instru* OLOPATADINE 0.1 % EYE DROPS Use 1 Drop in the left eye tw* COMPOUNDED PRESCRIPTION BIPAP of 09/19 on 3L oxygen pe* GLIPIZIDE 5 MG TABLET TAKE 1 TABLET TWICE A DAY POTASSIUM CHLORIDE ER 20 MEQ * TAKE 1 TABLET BY MOUTH DAILY FERROUS GLUCONATE 324 MG (38 * TAKE 1 TABLET BY MOUTH TWICE * AMOXICILLIN 875 MG-POTASSIUM * Take 1 tablet by mouth twice * METFORMIN 500 MG TABLET TAKE 2 TABLETS BY MOUTH TWICE* PRAVASTATIN 20 MG TABLET TAKE 1 TABLET BY MOUTH ONCE D* LUBIPROSTONE 24 MCG CAPSULE Take 1 capsule by mouth twice* MILK OF MAGNESIA 400 MG/5 ML * TAKE 15ML BY MOUTH DAILY N* LANTUS U-100 INSULIN 100 UNIT* Give 24 units subq daily at 4* COMPOUNDED PRESCRIPTION Please discontinue Tylenol ES* STOOL SOFTENER 100 MG CAPSULE TAKE 1 CAPSULE TWICE A DAY Patient not taking: Reported on 03/16/2018 ASPIRIN 325 MG TABLET,DELAYED* Take 1 tablet by mouth once d* ACETAMINOPHEN 500 MG TABLET Take 1 tablet by mouth daily * FUROSEMIDE 20 MG TABLET Take 1 tablet by mouth once d* WHEAT DEXTRIN 3 GRAM/3.8 GRAM* Stir 2 teaspoonfuls into 4-8 * CHOLECALCIFEROL (VITAMIN D3) * Take 1 capsule by mouth once * CLOZAPINE 100 MG TABLET take one tablet at noon, 2 ta* ALBUTEROL SULFATE HFA 90 MCG/* Inhale 2 Puffs as instructed * FLOVENT DISKUS 250 MCG/ACTUAT* INHALE ONE PUFF BY MOUTH TWIC* DESVENLAFAXINE SUCCINATE ER 5* Take 50 mg by mouth once ziggy* LANCETS test BS twice daily 2 days a * RISPERIDONE 2 MG DISINTEGRATI* Take 2 mg by mouth once daily. BLOOD SUGAR DIAGNOSTIC STRIPS test BS twice daily - dx - 25* CLONAZEPAM 1 MG TABLET Take 0.5 mg Bid, 1 mg po at HS PEN NEEDLE, DIABETIC 31 GAUGE* Use one needle per dose. Once* BLOOD-GLUCOSE METER KIT Used once daily to check bloo* * RISPERIDONE MICROSPHERES 50 M* Inject 2 mL intramuscularly e* Problem List As Of Date 07/31/2018 Noted Resolved Schizophreniform disorder, chronic condition (H* Priority: Mild More... Other abnormal glucose [R73.09] 04/29/2018 Priority: A More... DM w/o Complication Type II [E11.9] INVALID FOR*02/22/2014 Priority: Moderate Gastritis [K29.70] INVALID FOR* Routine general medical examination at a health*INVALID FOR*11/26/2011 Class: Chronic More... Routine gynecological examination [Z01.419] INVALID FOR*11/26/2011 Class: Chronic More... Vitamin D deficiency [E55.9] INVALID FOR* Priority: A More... Liver Function Test Abnormality [R94.5] INVALID FOR* More... 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 Encounter for screening for malignant neoplasm *INVALID FOR* Postmenopausal bleeding [N95.0] INVALID FOR* More... Acute diastolic CHF (congestive heart failure) *INVALID FOR* More... Obesity, Class II, BMI 35-39.9 [E66.9] INVALID FOR* Prescriptions ordered this encounter Disp Refills Start End BENZONATATE 100 MG CAPSULE 20 c* 0 07/31/2018 Route: ORAL Sig: Take 1 capsule by mouth three times daily as needed for Cough. Encounter Status:Closed by NISHA ANGELO MA on 07/31/18 DISCHARGE SUMMARY Observed: 07/29/2018 Status: F Source: [place] 1:01 PM [facility] REPOSITORY [facility] Medical Records Department [address] [place] [address] Discharge Summary 07/29/18 1255 MR#: [id number] Acct: [id number] Name: REYBRITTNEE Mayberry Rep #: [id number] : 1965 52 From: Laron Chavez DO PCP: Boris Jones MD Status: ADM IN Location: [place] [id number] Discharge Date and Diagnosis - Problem List Patient Problems: Active and Suspected Problems Rhinovirus (Acute) Pneumococcal pneumonia (Acute) COPD (chronic obstructive pulmonary disease) (Acute) Date of Admission: 07/22/18 Date of Discharge: 07/29/18 - Primary Discharge Diagnosis Active and Suspected Problems Rhinovirus (Acute) Pneumococcal pneumonia (Acute) COPD (chronic obstructive pulmonary disease) (Acute) 1. Acute COPD exacerbation, presumed * likely exacerbated by rhinovirus. * continue prednisone and BDs * follow up with pulmonology as outpt. * Completed 6 days of prednisone 40--will DC. 2. suspected pneumoccal pneumonia * small infiltrate on CXR * was on CTX and zmax * start LVQ through today, then stop 3. Rhinovirus * supportive mgmt 4. Acute respiratory failure, hypoxic * 2/2 COPD exacerbation * Improved * No longer requiring oxygen, therefore, can return to intermediate rather than go to a SNF. 5. DM2, uncontrolled * exacerbated by steroids. * Lantus increased to 30 from 24 and stared on scheduled log (10 units) - Secondary Discharge Diagnosis Chronic Problems Nonproductive cough (Chronic) Hyperlipidemia (Chronic) Diabetes mellitus type 2 in obese (Chronic) HTN (hypertension) (Chronic) Schizophrenia (Chronic) Hospital Course and Treatment Imaging Results: Clinical Impression(s) from Imaging Studies Chest X-Ray 07/22/18 09:58 IMPRESSION: There is now a small focal right upper lobe pulmonary parenchymal consolidation, consider infiltrate. Follow-up to clearing recommended. Electronically Signed: Reina Mcrae MD at 10:52 EDT , Service support , Chest CT 07/22/18 13:53 IMPRESSION: Bilateral upper lobe pulmonary parenchymal infiltrates, consider bronchopneumonia. Hepatomegaly with hepatic steatosis. Electronically Signed: Reina Mcrae MD at 15:20 EDT , Service support , Soft Tissue Neck CT 07/23/18 07:46 IMPRESSION: Normal enhanced CT examination of the soft tissues of the neck. Electronically Signed: Reina Mcrae MD at 10:50 EDT , Service support , Pulmonology: Drs. Spain and Wilber. Operations: None Procedures: None Summary of Care Provided: The patient is a 52 year old F presents with shortness of breath and wheezing. Patient was determined to be exacerbation. Chest x-ray was concerning for a right upper lobe infiltrate. Patient was started on steroids, bronchodilators and antibiotics. Patient continued be on oxygen and was initially planned to be discharged on the but the facility would not accept her being on oxygen. Patient was seen in consultation by pulmonology. She had a CAT scan of her neck showed no acute process given the patient's audible wheezing. Patient overall improved. Patient complete her course of antibiotics and steroids which will be discontinued prior to her being discharged. Patient is no longer hypoxic and requiring oxygen and since she does not require oxygen, patient can return to her intermediate. [] Patient Problems: Active and Suspected Problems Rhinovirus (Acute) Pneumococcal pneumonia (Acute) COPD (chronic obstructive pulmonary disease) (Acute) - Physical Exam Vital Signs Temp Pulse Resp BP Pulse Ox 36.4 C L 118 H 20 H 119/75 93 07/29/18 11:00 07/29/18 11:00 07/29/18 11:00 07/29/18 11:00 07/29/18 11:10 Oxygen Flow Rate (L/min) [ 0 AMBULATING on Room Air] Oxygen Flow Rate (L/min) [At 0 REST on Room Air] Oxygen Flow Rate (L/min) 2 Oxygen Delivery Method Nasal Cannula Weight: 88.81 kg Body Mass Index (BMI) 37.0 Intake and Output for Last 24 Hours Intake Total 1370 / 1370 520 / 520 Output Total 1900 / 1900 900 / 900 Balance -530 / -530 -380 / -380 Microbiology Past 72 Hours 07/22/18 14:10 Blood Culture - Final Laboratory Tests Past 24 Hrs Sodium 136 Potassium 3.5 Chloride 98 Carbon Dioxide 31.0 POC Glucose POC Glucose 304 H 154 H 148 H POC Glucose 211 H Discharge Diet: 1800 Calorie Control Diet Discharge Activity: Return to Normal Activity Call your doctor if you observe: Fever of 101 or Higher, Shortness of breath Home Medications: Medications to take at Discharge Clozapine [Clozaril] 100 mg PO LUNCH 03/28/14 Metformin HCl [Glucophage] 1,000 mg PO BID 03/28/14 Risperidone [Risperdal] 2 mg PO QHS 03/28/14 glipiZIDE [Glucotrol] 5 mg PO BIDAC 03/28/14 Clozapine [Clozaril] 300 mg PO QHS 12/23/14 Insulin Glargine [Lantus SoloStar Pen] 24 units SC QHS 12/23/14 Desvenlafaxine Succinate [Pristiq] 50 mg PO DAILY 07/25/15 Risperidone Microspheres [Risperdal Consta] 50 mg IM Q14D 07/25/15 Tiotropium [place] [Spiriva 18 MCG] 1 puff INHALATION DAILY 07/25/15 Pravastatin Sodium 20 mg PO QHS 12/18/16 Clozapine [Clozaril] 200 mg PO DINNER 10/11/17 Potassium Chloride [K-Dur] 20 meq PO DAILY #30 tab 10/16/17 Cholecalciferol (Vitamin D3) [Vitamin D3] 1,000 unit PO DAILY 10/17/17 [place]-3 Fatty Acids/Fish Oil [Fish Oil 1,000 mg Capsule] 1 each PO DAILY 10/17/17 Albuterol IH (ProAir) [Proair Hfa] 2 puff INHALATION PRN PRN 07/22/18 Aspirin [Aspirin EC] 325 mg PO DAILY 07/22/18 Clonazepam [Klonopin] 0.5 mg PO BREAKFAST 07/22/18 Clonazepam [Klonopin] 1 mg PO 1200 07/22/18 Clonazepam [Klonopin] 1 mg PO QHS 07/22/18 Ferrous Gluconate 325 mg PO BIDCM 07/22/18 Fluticasone/Vilanterol [Breo Ellipta 100-25 Mcg INH] 1 each IH DAILY 07/22/18 Fluticasone/Vilanterol [Breo Ellipta 100-25 Mcg INH] 1 inhaler 07/22/18 Furosemide [Lasix] 20 mg PO DAILY 07/22/18 Lubiprostone [Amitiza] 24 mcg PO BID 07/22/18 Olopatadine HCl [Patanol] 1 drop EACH EYE DAILY 07/22/18 Benzonatate [Tessalon Perle] 100 mg PO Q4H PRN PRN #20 cap 07/25/18 Following Prescrptions Were Given to Patient: Benzonatate [Tessalon Perle] 100 mg PO Q4H PRN PRN #20 cap PRN Reason: COUGH Primary Care Physician: Boris Jones MD [Primary Care Provider] - Please follow up with your Primary Care Physician in: in 5- 7 days Please Follow Up With: Derrick Spain DO - Pulmonology follow up. When: 4-6 weeks Patient Instructions: Discharge Instructions: COPD, Treatment for COPD Disposition: Home Minutes spent on discharge:: 33 Patient Condition:: Fair Medical Necessity - Tobacco Use Smoking Status: Former smoker Meaningful Use Info Meaningful Use Diagnoses (Choose all that apply): None applicable Code Visit Inpatient E AND M: [id number] Disch Hosp 07/29/18 1301 <Electronically signed by Laron Chavez DO> Date Laron Chavez DO Cosigner Signature (if applicable): Date CC: Laron Chavez DO; Boris Jones MD Signed DISCHARGE INSTRUCTION Observed: 07/29/2018 Status: F Source: [place] 12:55 PM [facility] REPOSITORY [facility] Medical Records Department [address] [place] [id number] Instructions for Home/Discharge Instructions 07/29/18 1253 MR#: [id number] Acct: [id number] Name: BRITTNEE LE Rep #: [id number] : 1965 52 From: Laron Chavez DO PCP: Boris Jones MD Status: ADM IN - Discharge Diagnoses Current Active Problems: Current Active and Chronic Problems COPD (chronic obstructive pulmonary disease) (Acute) You will use the following diet at home:: Calorie/Carbohydrate Controlled (specify 1200, 1400, etc) - 1800 kcal/day Your food should be the consistency of: Regular Your liquids should be the consistency of: Regular/Thin Discharge Activity: Return to Normal Activity Call your doctor if you observe: Fever of 101 or Higher, Shortness of breath Instructions: Treatment for COPD, Discharge Instructions: COPD Allergies/Adverse Reactions: Allergies No Known Allergies Allergy (Verified 07/22/18 09:30) Medications to take at Discharge Clozapine [Clozaril] 100 mg PO LUNCH 03/28/14 Metformin HCl [Glucophage] 1,000 mg PO BID 03/28/14 Risperidone [Risperdal] 2 mg PO QHS 03/28/14 glipiZIDE [Glucotrol] 5 mg PO BIDAC 03/28/14 Clozapine [Clozaril] 300 mg PO QHS 12/23/14 Insulin Glargine [Lantus SoloStar Pen] 24 units SC QHS 12/23/14 Desvenlafaxine Succinate [Pristiq] 50 mg PO DAILY 07/25/15 Risperidone Microspheres [Risperdal Consta] 50 mg IM Q14D 07/25/15 Tiotropium [place] [Spiriva 18 MCG] 1 puff INHALATION DAILY 07/25/15 Pravastatin Sodium 20 mg PO QHS 12/18/16 Clozapine [Clozaril] 200 mg PO DINNER 10/11/17 Potassium Chloride [K-Dur] 20 meq PO DAILY #30 tab 10/16/17 Cholecalciferol (Vitamin D3) [Vitamin D3] 1,000 unit PO DAILY 10/17/17 [place]-3 Fatty Acids/Fish Oil [Fish Oil 1,000 mg Capsule] 1 each PO DAILY 10/17/17 Albuterol IH (ProAir) [Proair Hfa] 2 puff INHALATION PRN PRN 07/22/18 Aspirin [Aspirin EC] 325 mg PO DAILY 07/22/18 Clonazepam [Klonopin] 0.5 mg PO BREAKFAST 07/22/18 Clonazepam [Klonopin] 1 mg PO 1200 07/22/18 Clonazepam [Klonopin] 1 mg PO QHS 07/22/18 Ferrous Gluconate 325 mg PO BIDCM 07/22/18 Fluticasone/Vilanterol [Breo Ellipta 100-25 Mcg INH] 1 each IH DAILY 07/22/18 Fluticasone/Vilanterol [Breo Ellipta 100-25 Mcg INH] 1 inhaler 07/22/18 Furosemide [Lasix] 20 mg PO DAILY 07/22/18 Lubiprostone [Amitiza] 24 mcg PO BID 07/22/18 Olopatadine HCl [Patanol] 1 drop EACH EYE DAILY 07/22/18 Benzonatate [Tessalon Perle] 100 mg PO Q4H PRN PRN #20 cap 07/25/18 The following prescriptions were given: Benzonatate [Tessalon Perle] 100 mg PO Q4H PRN PRN #20 cap PRN Reason: COUGH Primary Care Physician: Boris Jones MD [Primary Care Provider] - Please follow up with your Primary Care Physician in: in 5- 7 days Test Results: Test results from this visit will be discussed in further detail at your follow-up appointment, if applicable. Please Follow Up With: Derrick Spain DO - Pulmonology follow up. When: 4-6 weeks Proposed Discharge Date: 07/25/18 07/29/18 1255 <Electronically signed by Laron Chavez DO> Date Laron Chavez DO CC: Derrick Spain D.O.; Boris Jones MD BEDSIDE GLUCOSE Collected: 07/29/2018 Status: F Source: [place] 11:55 AM [facility] REPOSITORY TYPE CODE TESTS RESULT OUT OF REFERENCE UNITS RANGE LAB L501.080 70-110 mg/dL High BEDSIDE GLU 304 Result Comment: MANAGEMENT OF PATIENT CARE PER NURSING PROTOCOL Performed By: #### L501.080 #### [facility] Point of Care [address] [place] [address] BEDSIDE GLUCOSE Collected: 07/29/2018 Status: F Source: [place] 9:06 AM [facility] REPOSITORY TYPE CODE TESTS RESULT OUT OF REFERENCE UNITS RANGE LAB L501.080 70-110 mg/dL High BEDSIDE GLU 154 Result Comment: MANAGEMENT OF PATIENT CARE PER NURSING PROTOCOL Performed By: #### L501.080 #### [facility] Point of Care [address] [place] [address] BASIC METABOLIC Collected: 07/29/2018 Status: F Source: [place] PROFILE (BMP) 7:40 AM [facility] REPOSITORY TYPE CODE TESTS RESULT OUT OF RANGE REFERENCE UNITS LAB L501.0100 74-106 mg/dL High GLU 133 Result Comment: Fasting Glucose result greater than or equal to 126 mg/dL suggests DIABETES MELLITUS per A.D.A. criteria. Please note revised GLUCOSE reference range effective 2017. LAB L501.1000 7-18 mg/dL Normal BUN 17 LAB L501.1100 0.55-1.02 mg/dL Normal CREAT,SERUM 0.72 Result Comment: The validity of the calculated GFR AND GFRAA in patients over 70 years has not been determined. Clinical correlation is essential. LAB L501.1110 >60 mL/min Normal EST GFR 90 Result Comment: Non- GFR Calc LAB L501.1115 >60 mL/min Normal EST GFR - AA 109 Result Comment: GFR Calc LAB L501.1255 ml/min Normal Estimated CRCL 67.40 LAB L501.1300 10-20 RATIO High BUN/CRE 23.7 LAB L501.2200 8.5-10 mg/dL Normal .1 CA 9.3 LAB L501.5300 136-14 mmol/L Normal 5 NA 136 LAB L501.5600 3.5-5. mmol/L Normal 1 K 3.5 LAB L501.5900 98-107 mmol/L Normal CL 98 LAB L501.6100 21.0-3 mmol/L Normal 2.0 CO2 31.0 LAB L501.6200 5-15 Normal GAP 7 Performed By: #### L500.2500 #### [facility] [address] [facility] [place], [place], [id number] BEDSIDE GLUCOSE Collected: 07/28/2018 Status: F Source: SILVER 9:22 PM [facility] REPOSITORY TYPE CODE TESTS RESULT OUT OF REFERENCE UNITS RANGE LAB L501.080 70-110 mg/dL High BEDSIDE GLU 148 Result Comment: MANAGEMENT OF PATIENT CARE PER NURSING PROTOCOL Performed By: #### L501.080 #### [facility] Point of Care [address] [facility] [place] [address] BEDSIDE GLUCOSE Collected: 07/28/2018 Status: F Source: [place] 4:59 PM [facility] REPOSITORY TYPE CODE TESTS RESULT OUT OF REFERENCE UNITS RANGE LAB L501.080 70-110 mg/dL High BEDSIDE GLU 211 Result Comment: MANAGEMENT OF PATIENT CARE PER NURSING PROTOCOL Performed By: #### L501.080 #### [facility] Point of Care [address] [facility] [place] [address] BEDSIDE GLUCOSE Collected: 07/28/2018 Status: F Source: [place] 11:44 AM [facility] REPOSITORY TYPE CODE TESTS RESULT OUT OF REFERENCE UNITS RANGE LAB L501.080 70-110 mg/dL High BEDSIDE GLU 291 Result Comment: MANAGEMENT OF PATIENT CARE PER NURSING PROTOCOL Performed By: #### L501.080 #### [facility] Point of Care [address] [place] [address] BEDSIDE GLUCOSE Collected: 07/28/2018 Status: F Source: [place] 8:05 AM [facility] REPOSITORY TYPE CODE TESTS RESULT OUT OF REFERENCE UNITS RANGE LAB L501.080 70-110 mg/dL High BEDSIDE GLU 152 Result Comment: MANAGEMENT OF PATIENT CARE PER NURSING PROTOCOL Performed By: #### L501.080 #### [facility] Point of Care [address] [place] [address] BEDSIDE GLUCOSE Collected: 07/27/2018 Status: F Source: [place] 9:00 PM [facility] REPOSITORY TYPE CODE TESTS RESULT OUT OF REFERENCE UNITS RANGE LAB L501.080 70-110 mg/dL High BEDSIDE GLU 234 Result Comment: MANAGEMENT OF PATIENT CARE PER NURSING PROTOCOL Performed By: #### L501.080 #### [facility] Point of Care [address] [place] [address] BEDSIDE GLUCOSE Collected: 07/27/2018 Status: F Source: [place] 4:57 PM [facility] REPOSITORY TYPE CODE TESTS RESULT OUT OF REFERENCE UNITS RANGE LAB L501.080 70-110 mg/dL High BEDSIDE GLU 304 Result Comment: MANAGEMENT OF PATIENT CARE PER NURSING PROTOCOL Performed By: #### L501.080 #### [facility] Point of Care [address] [place] [address] 12 LEAD ELECTROCARDIOGRAM Observed: 07/27/2018 Status: F Source: SILVER 3:51 PM [facility] REPOSITORY [facility] Cardiovascular Services [address] [place] [address] 12 Lead EKG 07/22/18 1005 MR#: [id number] Acct: [id number] Name: BRITTNEE LE Shawanda Rep #: [id number] : 1965 52 From: Yovany Dimas MD Attending Dr: Laron Chavez DO Status: ADM IN Ordering Dr: Adriano Frazier MD Date: 07/22/18 [place] [facility] [place] F C Admitted: 07/22/18 Test Reason : SOB Blood Pressure : / mmHG Vent. Rate : 128 BPM Atrial Rate : 128 BPM P-R Int : 156 ms QRS Dur : 076 ms QT Int : 290 ms P-R-T Axes : 064 035 053 degrees QTc Int : 423 ms Sinus tachycardia Low voltage QRS Septal infarct , age undetermined Abnormal ECG Confirmed by BOBBI SANDERS, YOVANY ([id number]), metropolitan editor ELDA SANCHEZ ([id number]) on 07/27/2018 3:51:21 PM Referred By: Lauro Noguera Confirmed By:YOVANY DIMAS MD 07/27/18 1551 Date Yovany Dimas MD CC: Lauro Noguera MD; Laron Chavez DO; Adriano Frazier MD; Boris Jones MD Signed GLUCOSE Collected: 07/27/2018 Status: F Source: [place] 1:15 PM [facility] REPOSITORY Order Comment: Comments: bs >450 TYPE CODE TESTS RESULT OUT OF RANGE REFERENCE UNITS LAB L501.0100 74-106 mg/dL High GLU 450 Result Comment: Slight Lipemia, Result may be falsely increased. Critical Result(s) Called at: 13:33:30 07/27/2018 by: Annemarie Lockett to [facility] Glucose result greater than or equal to 200 mg/dL suggests DIABETES MELLITUS per A.D.A. criteria. Please note revised GLUCOSE reference range effective 2017. Performed By: #### L501.0100 #### [facility] [address] [facility] [place], [place], [address] BEDSIDE GLUCOSE Collected: 07/27/2018 Status: F Source: [place] 12:56 PM [facility] REPOSITORY TYPE CODE TESTS RESULT OUT OF REFERENCE UNITS RANGE LAB L501.080 70-110 mg/dL High alert BEDSIDE GLU 463 Result Comment: MANAGEMENT OF PATIENT CARE PER NURSING PROTOCOL Performed By: #### L501.080 #### [facility] Point of Care [address] [place], [place] [address] PROGRESS Observed: 07/27/2018 Status: COMPLETED Source: [place] 11:09 AM [facility] REPOSITORY HNO ID: [id number] Author: Asia (Rn) Indra Service: (none) Author Type: Registered Nurse Type: Progress Notes Filed: 07/27/2018 11:43 AM Note Text: PRIMARY CARE COORDINATION FOLLOW-UP NOTE Provider Action/FYI FYI Patient identified by name and date of . YES Summary: Reviewed [facility] at [facility], pt may be discharged with oxygen. If pt has oxygen she cannot return to the intermediate because they are non-skilled CGs. SW checking with [facility] regarding transfer after discharge if pt requires oxygen. [employer] plan for next outreach: Will follow up after discharge Asia Burrell RN July 27, 2018 BASIC METABOLIC Collected: 07/27/2018 Status: F Source: [place] PROFILE (BMP) 5:45 AM [facility] REPOSITORY TYPE CODE TESTS RESULT OUT OF RANGE REFERENCE UNITS LAB L501.0100 74-106 mg/dL High GLU 143 Result Comment: Fasting Glucose result greater than or equal to 126 mg/dL suggests DIABETES MELLITUS per A.D.A. criteria. Please note revised GLUCOSE reference range effective 2017. LAB L501.1000 7-18 mg/dL Normal BUN 16 LAB L501.1100 0.55-1.02 mg/dL Normal CREAT,SERUM 0.60 Result Comment: The validity of the calculated GFR AND GFRAA in patients over 70 years has not been determined. Clinical correlation is essential. LAB L501.1110 >60 mL/min Normal EST GFR 110 Result Comment: Non- GFR Calc LAB L501.1115 >60 mL/min Normal EST GFR - AA 133 Result Comment: GFR Calc LAB L501.1255 ml/min Normal Estimated CRCL 80.88 LAB L501.1300 10-20 RATIO High BUN/CRE 26.5 LAB L501.2200 8.5-10 mg/dL Normal .1 CA 9.4 LAB L501.5300 136-14 mmol/L Normal 5 NA 137 LAB L501.5600 3.5-5. mmol/L Low 1 K 3.4 LAB L501.5900 98-107 mmol/L Low CL 96 LAB L501.6100 21.0-3 mmol/L High 2.0 CO2 34.0 LAB L501.6200 5-15 Normal GAP 7 Performed By: #### L500.2500 #### [facility] [address] [place], [address] BEDSIDE GLUCOSE Collected: 07/26/2018 Status: F Source: [place] 9:14 PM [facility] REPOSITORY TYPE CODE TESTS RESULT OUT OF REFERENCE UNITS RANGE LAB L501.080 70-110 mg/dL High BEDSIDE GLU 220 Result Comment: MANAGEMENT OF PATIENT CARE PER NURSING PROTOCOL Performed By: #### L501.080 #### [facility] Point of Care [address] [place] [address] BEDSIDE GLUCOSE Collected: 07/26/2018 Status: F Source: [place] 4:46 PM [facility] REPOSITORY TYPE CODE TESTS RESULT OUT OF REFERENCE UNITS RANGE LAB L501.080 70-110 mg/dL High BEDSIDE GLU 294 Result Comment: MANAGEMENT OF PATIENT CARE PER NURSING PROTOCOL Performed By: #### L501.080 #### [facility] Point of Care [address] [place] [address] BEDSIDE GLUCOSE Collected: 07/26/2018 Status: F Source: [place] 12:32 PM [facility] REPOSITORY TYPE CODE TESTS RESULT OUT OF REFERENCE UNITS RANGE LAB L501.080 70-110 mg/dL High BEDSIDE GLU 401 Result Comment: MANAGEMENT OF PATIENT CARE PER NURSING PROTOCOL Performed By: #### L501.080 #### [facility] Point of Care [address] [place] [address] CONSULTATION Observed: 07/26/2018 Status: F Source: [place] 9:25 AM [facility] REPOSITORY [facility] Medical Records Department [address] [address] Consultation 07/26/18 0836 MR#: [id number] Acct: [id number] Name: BRITTNEE LE Rep #: [id number] : 1965 52 From: Derrick Spain DO PCP: Boris Jones MD Status: ADM IN Location: [place] [id number] Reason for Consult Date of Consultation: 07/26/18 Reason for Consultation: COPD exacerbation History of Present Illness: The patient is a 52-year-old female, with a history as outlined below, who initially presented to the emergency department on July 22 with complaints of shortness of breath and cough. The patient does currently reside in a intermediate and has an unspecified learning disability and schizophrenia. Although COPD is listed on her medical history, pulmonary function testing has been never been completed to confirm this assertion. While the patient does report a limited, remote smoking history, she reports to me that she does not utilize inhalers at her baseline. She only utilizes supplemental oxygen while sleeping normally. On presentation to the emergency department, the patient was noted to be tachycardic, tachypneic and requiring 3 L/min via nasal cannula. Laboratory evaluation at that time revealed an elevated white blood cell count to 16,000. Chemistry profile was largely unremarkable, with the exception of an elevated blood glucose level. Plain film chest x-ray revealed evidence of a right upper lobe opacity. The patient was subsequently placed on antibiotics for community-acquired pneumonia and admitted to the medical surgical floor for ongoing management. To date, the patient has been treated with scheduled bronchodilators, antibiotics and Lasix. We were consulted this morning for continued bronchospasm. A CT chest was obtained on July 22 did reveal evidence of bilateral upper lobe infiltrates. A CT neck was obtained due to stridor, which was largely unremarkable. The patient's only complaint currently is for that of being tired. 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 Smoking Status: Former smoker - *Family History Paternal History Items: - - from a farm accident Maternal History Items: No pertinent history Review of Systems Constitutional: Denies: Chills, Fever, Night Sweats Eyes: Denies: Blurred vision, Double vision HEENT: Denies: Head Aches, Sinus Congestion, Sinus Drainage Cardiovascular: Reports: Chest Tightness Respiratory: Reports: Cough, Shortness of Breath Gastrointestinal: Denies: Abdominal Pain, Nausea, Vomiting Genitourinary: Denies: Dysuria Musculoskeletal: Denies: Joint Pain, Joint Tenderness Skin: Denies: Rash, Wounds Neurological: Denies: Numbness, Tingling, Focal weakness Psychiatric: Reports: Anxiety, Depression Hematologic/ Lymphatic: Denies: Easy Bruising, Easy Bleeding Objective: The patient's most recent lab work, culture data and imaging studies have all been personally reviewed. Strep and urine Legionella antigens were both negative. Blood cultures have not shown any growth to date. Respiratory viral panel was positive for rhinovirus. Sputum Gram stain and culture are currently pending. Surface echocardiogram from October 2017 revealed normal size and function of the patient's LV with an ejection fraction of 65% and normal right ventricular systolic pressures. - Physical Exam General: Alert, Cooperative, No apparent distress HEENT: Atraumatic, PERRLA, Normocephalic Oral: No Gingival or Mucosal Lesions/ Ulcerations Neck: Supple, No Nodes, Trachea Midline Lungs: No rhonchi, No rales, Diminished, Wheezes Cardiovascular: Regular rate, Regular Rhythm, Normal S1, Normal S2, No murmurs Abdomen: Bowel Sounds Present, Soft, Non Tender, Obese Extremities: No clubbing, No cyanosis, No edema Skin: No breakdown Musculoskeletal: No Muscle Wasting Lymphatic: No Cervical, Supraclavicular, or Inguinal Adenopathy Neurological: Neuro grossly intact Psych/Mental Status: Normal Affect, Appropriate Vital Signs Temp Pulse Resp BP Pulse Ox 97.8 F 106 H 28 H 138/80 H 94 07/26/18 04:00 07/26/18 06:56 07/26/18 06:56 07/26/18 04:00 07/26/18 06:56 Oxygen Flow Rate (L/min) 4 Oxygen Delivery Method Nasal Cannula Weight: 195 lb 12.68 oz Body Mass Index (BMI) 37.0 Intake and Output for Last 24 Hours Intake Total 1600 / 1600 1750 / 1750 550 / 550 Output Total 2500 / 2500 1850 / 1850 Balance -900 / -900 -100 / -100 550 / 550 Microbiology Past 72 Hours 07/25/18 14:07 Gram Stain - Preliminary Sputum, Expectorated/Coughed 07/22/18 14:10 Blood Culture - Preliminary Laboratory Tests Past 24 Hrs WBC 14.1 H RBC 4.83 Hgb 14.1 Hct 43.6 POC Glucose POC Glucose 175 H 297 H 185 H POC Glucose 393 H 161 H Clinical Impression(s) from Imaging Studies Chest X-Ray 07/22/18 09:58 IMPRESSION: There is now a small focal right upper lobe pulmonary parenchymal consolidation, consider infiltrate. Follow-up to clearing recommended. Electronically Signed: Reina Mcrae MD at 10:52 EDT , Service support , Chest CT 07/22/18 13:53 IMPRESSION: Bilateral upper lobe pulmonary parenchymal infiltrates, consider bronchopneumonia. Hepatomegaly with hepatic steatosis. Electronically Signed: Reina Mcrae MD at 15:20 EDT , Service support , Soft Tissue Neck CT 07/23/18 07:46 IMPRESSION: Normal enhanced CT examination of the soft tissues of the neck. Electronically Signed: Reina Mcrae MD at 10:50 EDT , Service support , Assessment/Plan All Active Problems Wheezing (Acute) FTT (failure to thrive) in adult (Resolved) copd (Acute) RECOMMENDATIONS: 1. Continue scheduled bronchodilators and steroids. 2. We will ask respiratory therapy to provide the patient with serial aerosol treatments this morning in the form of albuterol every 1 hour x3 doses. 3. Continue to wean supplemental oxygen. 4. Encourage incentive spirometer use and mobilize patient as tolerated. 5. Recommend outpatient PFTs and follow-up in the pulmonary medicine clinic upon discharge from the hospital. IMPRESSIONS: 1. Acute hypoxic respiratory insufficiency May be secondary to underlying bronchospastic airway disease with exacerbation secondary to rhinovirus respiratory infection. Although the patient has COPD listed in her medical history, she has never had pulmonary function testing completed to confirm this assertion. Recommend continuing scheduled bronchodilators as ordered. The patient will be ordered serial aerosol treatments this morning with albuterol every 1 hour x3 doses. If the patient develops tachycardia with treatments, Atrovent can be substituted. Continue steroids as ordered. Encourage incentive spirometer use and mobilize patient as tolerated. Wean supplemental oxygen to maintain saturations at or above 90%. 2. Diabetes mellitus/obstructive sleep apnea/schizophrenia/obesity/hyperlipidemia Complicates care, management, recovery and prognosis. Likely okay to continue home medications as ordered. This note was generated with [employer] dictation software. It may contain incorrect words, spelling, and punctuation that were not noted in checking the note before signing. Code Visit Inpatient E AND M: 90026 Init Hosp L2 07/26/18 0925 <Electronically signed by Derrick Spain DO> Date Derrick Spain DO Cosigner Signature (if applicable): Date CC: Lauro Noguera MD; Derrick Spain D.O.; Boris Jones MD Signed BEDSIDE GLUCOSE Collected: 07/26/2018 Status: F Source: [place] 6:21 AM [facility] REPOSITORY TYPE CODE TESTS RESULT OUT OF REFERENCE UNITS RANGE LAB L501.080 70-110 mg/dL High BEDSIDE GLU 175 Result Comment: MANAGEMENT OF PATIENT CARE PER NURSING PROTOCOL Performed By: #### L501.080 #### [facility] Point of Care [address] [place], [place] [address] CBC-COMPLETE BLOOD CNT Collected: 07/26/2018 Status: F Source: [place] NO DIFF 5:45 AM [facility] REPOSITORY TYPE CODE TESTS RESULT OUT OF RANGE REFERENCE UNITS LAB L100.1000 4.4-11.0 K/mm3 High WBC 14.1 LAB L100.1200 4.2-5.4 M/mm3 Normal RBC 4.83 LAB L100.1300 12.0-15.0 g/dl Normal HGB 14.1 LAB L100.1400 37-47 % Normal HCT 43.6 LAB L100.1500 81-99 fL Normal MCV 90.3 LAB L100.1600 27.0-32.0 pg Normal MCH 29.2 LAB L100.1700 32-36 g/gl Normal MCHC 32.3 LAB L100.1810 11.6-14.6 % Normal RDW CV 14.1 LAB L100.1820 35.1-43.9 fl High RDW SD 46.2 LAB L100.1900 150-450 K/mm3 Normal PLT 256 LAB L100.2000 6.2-12.0 fl Normal MPV 9.4 Performed By: #### L100.0500 #### [facility] [address] [facility] [place], [place], [address] BASIC METABOLIC Collected: 07/26/2018 Status: F Source: [place] PROFILE (BMP) 5:45 AM [facility] REPOSITORY TYPE CODE TESTS RESULT OUT OF RANGE REFERENCE UNITS LAB L501.0100 74-106 mg/dL High GLU 159 Result Comment: Fasting Glucose result greater than or equal to 126 mg/dL suggests DIABETES MELLITUS per A.D.A. criteria. Please note revised GLUCOSE reference range effective 2017. LAB L501.1000 7-18 mg/dL Normal BUN 15 LAB L501.1100 0.55-1.02 mg/dL Normal CREAT,SERUM 0.66 Result Comment: The validity of the calculated GFR AND GFRAA in patients over 70 years has not been determined. Clinical correlation is essential. LAB L501.1110 >60 mL/min Normal EST GFR 98 Result Comment: Non- GFR Calc LAB L501.1115 >60 mL/min Normal EST GFR - AA 119 Result Comment: GFR Calc LAB L501.1255 ml/min Normal Estimated CRCL 73.53 LAB L501.1300 10-20 RATIO High BUN/CRE 22.6 LAB L501.2200 8.5-10 mg/dL Normal .1 CA 9.6 LAB L501.5300 136-14 mmol/L Normal 5 NA 138 LAB L501.5600 3.5-5. mmol/L Normal 1 K 4.0 LAB L501.5900 98-107 mmol/L Low CL 96 LAB L501.6100 21.0-3 mmol/L Normal 2.0 CO2 32.0 LAB L501.6200 5-15 Normal GAP 10 Performed By: #### L500.2500 #### [facility] [address] [facility] [place], [address] BEDSIDE GLUCOSE Collected: 07/25/2018 Status: F Source: [place] 9:04 PM [facility] REPOSITORY TYPE CODE TESTS RESULT OUT OF REFERENCE UNITS RANGE LAB L501.080 70-110 mg/dL High BEDSIDE GLU 297 Result Comment: MANAGEMENT OF PATIENT CARE PER NURSING PROTOCOL Performed By: #### L501.080 #### [facility] Point of Care [address] [facility] [place], [place] [address] BEDSIDE GLUCOSE Collected: 07/25/2018 Status: F Source: [place] 5:45 PM [facility] REPOSITORY TYPE CODE TESTS RESULT OUT OF REFERENCE UNITS RANGE LAB L501.080 70-110 mg/dL High BEDSIDE GLU 185 Result Comment: MANAGEMENT OF PATIENT CARE PER NURSING PROTOCOL Performed By: #### L501.080 #### [facility] Point of Care [address] [place] [address]. [place] [address] Observed: 07/25/2018 Status: F Source: [place] CULTURE, SPUTUM 2:07 PM [facility] REPOSITORY Order Date: 07/25/18 Gram Stain Acceptable Specimen? Yes (<25 Epithelial cells per/lpf) Gram Stain 1+ Epithelial cells 1+ Gram positive cocci 2+ White Blood Cells Resp. Culture Mixed normal respiratory jenn. No Haemophilus, Streptococcus pneumoniae, beta-hemolytic Streptococcus or Staphylococcus aureus isolated. Performed By: #### M100.0800 #### [facility] [address] [place] [address], [address] BEDSIDE GLUCOSE Collected: 07/25/2018 Status: F Source: [place] 1:00 PM [facility] REPOSITORY TYPE CODE TESTS RESULT OUT OF REFERENCE UNITS RANGE LAB L501.080 70-110 mg/dL High BEDSIDE GLU 393 Result Comment: MANAGEMENT OF PATIENT CARE PER NURSING PROTOCOL Performed By: #### L501.080 #### [facility] Point of Care [address] [place] [id number] DISCHARGE SUMMARY Observed: 07/25/2018 Status: F Source: [place] 8:36 AM [facility] REPOSITORY [facility] Medical Records Department [address] [place] [address] Discharge Summary 07/25/18 0823 MR#: [id number] Acct: [id number] Name: BRITTNEE LE Rep #: [id number] : 1965 52 From: Lauro Noguera MD PCP: Boris Jones MD Status: ADM IN Location: [place] [id number] Discharge Date and Diagnosis Date of Admission: 07/22/18 Date of Discharge: 07/25/18 - Primary Discharge Diagnosis Community acquired pneumonia COPD exacerbation - Secondary Discharge Diagnosis Chronic Problems Nonproductive cough (Chronic) COPD (chronic obstructive pulmonary disease) (Chronic) Hyperlipidemia (Chronic) Diabetes mellitus type 2 in obese (Chronic) HTN (hypertension) (Chronic) Schizophrenia (Chronic) Hospital Course and Treatment Imaging Results: Clinical Impression(s) from Imaging Studies Chest X-Ray 07/22/18 09:58 IMPRESSION: There is now a small focal right upper lobe pulmonary parenchymal consolidation, consider infiltrate. Follow-up to clearing recommended. Electronically Signed: Reina Mcrae MD at 10:52 EDT , Service support , Chest CT 07/22/18 13:53 IMPRESSION: Bilateral upper lobe pulmonary parenchymal infiltrates, consider bronchopneumonia. Hepatomegaly with hepatic steatosis. Electronically Signed: Reina Mcrae MD at 15:20 EDT , Service support , Soft Tissue Neck CT 07/23/18 07:46 IMPRESSION: Normal enhanced CT examination of the soft tissues of the neck. Electronically Signed: Reina Mcrae MD at 10:50 EDT , Service support , Operations: None Summary of Care Provided: Patient is a 52-year-old lady presented with progressive shortness of breath with significant wheezing found to have right upper lobe infiltrate consistent with pneumonia admitted to monitored bed for further management 1. Acute respiratory insufficiency secondary to combination of COPD with acute exacerbation as well as community-acquired pneumonia 2. Pneumonia: Suspected to be secondary to streptococci pneumonia. Patient is admitted to regular floor. Blood and sputum cultures sent. Patient placed on Rocephin and Zithromax. He was also placed on oxygen titrated to keep also is greater than 90. Patient was discharged on Levaquin 750 mg p.o. daily for 5 days 3. Acute COPD exacerbation: Possibly precipitated by above patient treated with bronchodilator treatment, systemic steroid in addition to antibiotics as well as supplemental oxygen 4. Acute on chronic diastolic congestive heart failure stable patient was treated with Lasix during her hospital stay 5. Diabetes mellitus type 2 with complications including hyperglycemia; patient is on long-acting insulin Lantus did continue with home dose and subsequently placed on Accu-Cheks before meals and at bedtime with sliding scale coverage 6. Obstructive sleep apnea patient is on CPAP at night 7. Schizophrenia currently stable: Did continue with patient anti-psychotropic medications 8. Dyslipidemia-patient is on statin therapy, continued at home dose 9. Obesity with BMI of 37 10. DVT prophylaxis SC Lovenox - Physical Exam General: Well developed HEENT: Atraumatic Neck: Supple Lungs: Diminished Neurological: Neuro grossly intact Psych/Mental Status: Normal Affect Vital Signs Temp Pulse Resp BP Pulse Ox 98.4 F 106 H 26 H 106/57 L 94 07/25/18 06:14 07/25/18 07:49 07/25/18 06:50 07/25/18 06:14 07/25/18 06:50 Oxygen Flow Rate (L/min) 3 Oxygen Delivery Method Nasal Cannula Weight: 88.81 kg Body Mass Index (BMI) 37.0 Intake and Output for Last 24 Hours Intake Total 1067 / 1067 1600 / 1600 450 / 450 Output Total 1000 / 1000 2500 / 2500 1500 / 1500 Balance 67 / 67 -900 / -900 -1050 / -1050 Microbiology Past 72 Hours 07/22/18 14:10 Blood Culture - Preliminary Laboratory Tests Past 24 Hrs WBC 15.7 H RBC 4.51 Hgb 12.9 Hct 41.1 MCV 91.1 POC Glucose POC Glucose 124 H 193 H 294 H POC Glucose 216 H Discharge Diet: 1800 Calorie Control Diet Discharge Activity: Return to Normal Activity Home Medications: Medications to take at Discharge Clozapine [Clozaril] 100 mg PO LUNCH 03/28/14 Metformin HCl [Glucophage] 1,000 mg PO BID 03/28/14 Risperidone [Risperdal] 2 mg PO QHS 03/28/14 glipiZIDE [Glucotrol] 5 mg PO BIDAC 06/16/14 Clozapine [Clozaril] 300 mg PO QHS 12/23/14 Insulin Glargine [Lantus SoloStar Pen] 24 units SC QHS 12/23/14 Desvenlafaxine Succinate [Pristiq] 50 mg PO DAILY 07/25/15 Risperidone Microspheres [Risperdal Consta] 50 mg IM Q14D 07/25/15 Tiotropium [place] [Spiriva 18 MCG] 1 puff INHALATION DAILY 07/25/15 Pravastatin Sodium 20 mg PO QHS 12/18/16 Clozapine [Clozaril] 200 mg PO DINNER 10/11/17 Potassium Chloride [K-Dur] 20 meq PO DAILY #30 tab 10/16/17 Cholecalciferol (Vitamin D3) [Vitamin D3] 1,000 unit PO DAILY 10/17/17 [place]-3 Fatty Acids/Fish Oil [Fish Oil 1,000 mg Capsule] 1 each PO DAILY 10/17/17 Albuterol IH (ProAir) [Proair Hfa] 2 puff INHALATION PRN PRN 07/22/18 Aspirin [Aspirin EC] 325 mg PO DAILY 07/22/18 Clonazepam [Klonopin] 0.5 mg PO BREAKFAST 07/22/18 Clonazepam [Klonopin] 1 mg PO 1200 07/22/18 Clonazepam [Klonopin] 1 mg PO QHS 07/22/18 Ferrous Gluconate 325 mg PO BIDCM 07/22/18 Fluticasone/Vilanterol [Breo Ellipta 100-25 Mcg INH] 1 each IH DAILY 07/22/18 Fluticasone/Vilanterol [Breo Ellipta 100-25 Mcg INH] 1 inhaler 07/22/18 Furosemide [Lasix] 20 mg PO DAILY 07/22/18 Lubiprostone [Amitiza] 24 mcg PO BID 07/22/18 Olopatadine HCl [Patanol] 1 drop EACH EYE DAILY 07/22/18 Benzonatate [Tessalon Perle] 100 mg PO Q4H PRN PRN #20 cap 07/25/18 Prednisone 10 mg PO UD #30 tab 07/25/18 levoFLOXacin tablet [Levaquin tablet] 750 mg PO DAILY #5 tab 07/25/18 Following Prescrptions Were Given to Patient: Benzonatate [Tessalon Perle] 100 mg PO Q4H PRN PRN #20 cap PRN Reason: COUGH levoFLOXacin tablet [Levaquin tablet] 750 mg PO DAILY #5 tab Prednisone 10 mg PO UD #30 tab Primary Care Physician: Boris Jones MD [Primary Care Provider] - Please follow up with your Primary Care Physician in: in 5- 7 days Disposition: Home Minutes spent on discharge:: 35 Patient Condition:: Stable Medical Necessity - Tobacco Use Smoking Status: Former smoker Meaningful Use Info Meaningful Use Diagnoses (Choose all that apply): None applicable Code Visit Inpatient E AND M: 33305 Disch Hosp 07/25/18835 <Electronically signed by Lauro Noguera MD> Date Lauro Noguera MD Cosigner Signature (if applicable): Date CC: Lauro Noguera MD; Boris Jones MD Signed DISCHARGE INSTRUCTION Observed: 07/25/2018 Status: F Source: [place] 8:22 AM [facility] REPOSITORY [facility] Medical Records Department [address] [place] [id number] Instructions for Home/Discharge Instructions 07/25/18820 MR#: [id number] Acct: [id number] Name: BRITTNEE LE Rep #: [id number] : 1965 52 From: Lauro Noguera MD PCP: Boris Jones MD Status: ADM IN You will use the following diet at home:: Calorie/Carbohydrate Controlled (specify 1200, 1400, etc) - 1800 Your food should be the consistency of: Regular Discharge Activity: Return to Normal Activity Allergies/Adverse Reactions: Allergies No Known Allergies Allergy (Verified 07/22/18 09:30) Medications to take at Discharge Clozapine [Clozaril] 100 mg PO LUNCH 03/28/14 Metformin HCl [Glucophage] 1,000 mg PO BID 03/28/14 Risperidone [Risperdal] 2 mg PO QHS 03/28/14 glipiZIDE [Glucotrol] 5 mg PO BIDAC 06/16/14 Clozapine [Clozaril] 300 mg PO QHS 12/23/14 Insulin Glargine [Lantus SoloStar Pen] 24 units SC QHS 12/23/14 Desvenlafaxine Succinate [Pristiq] 50 mg PO DAILY 07/25/15 Risperidone Microspheres [Risperdal Consta] 50 mg IM Q14D 07/25/15 Tiotropium [place] [Spiriva 18 MCG] 1 puff INHALATION DAILY 07/25/15 Pravastatin Sodium 20 mg PO QHS 12/18/16 Clozapine [Clozaril] 200 mg PO DINNER 10/11/17 Potassium Chloride [K-Dur] 20 meq PO DAILY #30 tab 10/16/17 Cholecalciferol (Vitamin D3) [Vitamin D3] 1,000 unit PO DAILY 10/17/17 [place]-3 Fatty Acids/Fish Oil [Fish Oil 1,000 mg Capsule] 1 each PO DAILY 10/17/17 Albuterol IH (ProAir) [Proair Hfa] 2 puff INHALATION PRN PRN 07/22/18 Aspirin [Aspirin EC] 325 mg PO DAILY 07/22/18 Clonazepam [Klonopin] 0.5 mg PO BREAKFAST 07/22/18 Clonazepam [Klonopin] 1 mg PO 1200 07/22/18 Clonazepam [Klonopin] 1 mg PO QHS 07/22/18 Ferrous Gluconate 325 mg PO BIDCM 07/22/18 Fluticasone/Vilanterol [Breo Ellipta 100-25 Mcg INH] 1 each IH DAILY 07/22/18 Fluticasone/Vilanterol [Breo Ellipta 100-25 Mcg INH] 1 inhaler 07/22/18 Furosemide [Lasix] 20 mg PO DAILY 07/22/18 Lubiprostone [Amitiza] 24 mcg PO BID 07/22/18 Olopatadine HCl [Patanol] 1 drop EACH EYE DAILY 07/22/18 Benzonatate [Tessalon Perle] 100 mg PO Q4H PRN PRN #20 cap 07/25/18 Prednisone 10 mg PO UD #30 tab 07/25/18 The following prescriptions were given: Benzonatate [Tessalon Perle] 100 mg PO Q4H PRN PRN #20 cap PRN Reason: COUGH Prednisone 10 mg PO UD #30 tab Primary Care Physician: Boris Jones MD [Primary Care Provider] - Please follow up with your Primary Care Physician in: in 5- 7 days Test Results: Test results from this visit will be discussed in further detail at your follow-up appointment, if applicable. Proposed Discharge Date: 07/25/18 07/25/18821 <Electronically signed by Lauro Noguera MD> Date Lauro Noguera MD CC: Boris Jones MD BEDSIDE GLUCOSE Collected: 07/25/2018 Status: F Source: [place] 8:22 AM [facility] REPOSITORY TYPE CODE TESTS RESULT OUT OF REFERENCE UNITS RANGE LAB L501.080 70-110 mg/dL High BEDSIDE GLU 161 Result Comment: MANAGEMENT OF PATIENT CARE PER NURSING PROTOCOL Performed By: #### L501.080 #### [facility] Point of Care [address] [facility] [place], [place] [id number] CBC-COMPLETE BLOOD CNT Collected: 07/25/2018 Status: F Source: [place] NO DIFF 5:42 AM [facility] REPOSITORY TYPE CODE TESTS RESULT OUT OF RANGE REFERENCE UNITS LAB L100.1000 4.4-11.0 K/mm3 High WBC 15.7 LAB L100.1200 4.2-5.4 M/mm3 Normal RBC 4.51 LAB L100.1300 12.0-15.0 g/dl Normal HGB 12.9 LAB L100.1400 37-47 % Normal HCT 41.1 LAB L100.1500 81-99 fL Normal MCV 91.1 LAB L100.1600 27.0-32.0 pg Normal MCH 28.6 LAB L100.1700 32-36 g/gl Low MCHC 31.4 LAB L100.1810 11.6-14.6 % Normal RDW CV 14.2 LAB L100.1820 35.1-43.9 fl High RDW SD 47.1 LAB L100.1900 150-450 K/mm3 Normal PLT 276 LAB L100.2000 6.2-12.0 fl Normal MPV 9.6 Performed By: #### L100.0500 #### [facility] [address] [place], [address] BASIC METABOLIC Collected: 07/25/2018 Status: F Source: [place] PROFILE ([facility]) 5:42 AM [facility] REPOSITORY TYPE CODE TESTS RESULT OUT OF RANGE REFERENCE UNITS LAB L501.0100 74-106 mg/dL High GLU 121 Result Comment: Fasting Glucose result from 100 to 125 mg/dL suggests IMPAIRED HOMEOSTASIS per A.D.A. criteria. Please note revised GLUCOSE reference range effective 2017. LAB L501.1000 7-18 mg/dL Normal BUN 11 LAB L501.1100 0.55-1.02 mg/dL Normal CREAT,SERUM 0.58 Result Comment: The validity of the calculated GFR AND GFRAA in patients over 70 years has not been determined. Clinical correlation is essential. LAB L501.1110 >60 mL/min Normal EST GFR 115 Result Comment: Non- GFR Calc LAB L501.1115 >60 mL/min Normal EST GFR - AA 139 Result Comment: GFR Calc LAB L501.1255 ml/min Normal Estimated CRCL 83.67 LAB L501.1300 10-20 RATIO Normal BUN/CRE 19.0 LAB L501.2200 8.5-10 mg/dL Normal .1 CA 9.3 LAB L501.5300 136-14 mmol/L Normal 5 NA 138 LAB L501.5600 3.5-5. mmol/L Normal 1 K 3.7 LAB L501.5900 98-107 mmol/L Low CL 94 LAB L501.6100 21.0-3 mmol/L High 2.0 CO2 35.0 LAB L501.6200 5-15 Normal GAP 9 Performed By: #### L500.2500, L501.5200 #### [facility] [address] [place], [address] MAGNESIUM Collected: 07/25/2018 Status: F Source: [place] 5:42 AM [facility] REPOSITORY TYPE CODE TESTS RESULT OUT OF RANGE REFERENCE UNITS LAB L501.5200 1.6-2.6 mg/dL Normal MG 2.0 Performed By: #### L500.2500, L501.5200 #### [facility] [address] [place], [address] BEDSIDE GLUCOSE Collected: 07/24/2018 Status: F Source: [place] 9:54 PM [facility] REPOSITORY TYPE CODE TESTS RESULT OUT OF REFERENCE UNITS RANGE LAB L501.080 70-110 mg/dL High BEDSIDE GLU 124 Result Comment: MANAGEMENT OF PATIENT CARE PER NURSING PROTOCOL Performed By: #### L501.080 #### [facility] Point of Care [address] [place] [address] BEDSIDE GLUCOSE Collected: 07/24/2018 Status: F Source: [place] 5:21 PM [facility] REPOSITORY TYPE CODE TESTS RESULT OUT OF REFERENCE UNITS RANGE LAB L501.080 70-110 mg/dL High BEDSIDE GLU 193 Result Comment: MANAGEMENT OF PATIENT CARE PER NURSING PROTOCOL Performed By: #### L501.080 #### [facility] Point of Care [address] [place] [address] BEDSIDE GLUCOSE Collected: 07/24/2018 Status: F Source: [place] 12:10 PM [facility] REPOSITORY TYPE CODE TESTS RESULT OUT OF REFERENCE UNITS RANGE LAB L501.080 70-110 mg/dL High BEDSIDE GLU 294 Result Comment: MANAGEMENT OF PATIENT CARE PER NURSING PROTOCOL Performed By: #### L501.080 #### [facility] Point of Care [address] [place] [address] BEDSIDE GLUCOSE Collected: 07/24/2018 Status: F Source: [place] 8:54 AM [facility] REPOSITORY TYPE CODE TESTS RESULT OUT OF REFERENCE UNITS RANGE LAB L501.080 70-110 mg/dL High BEDSIDE GLU 216 Result Comment: MANAGEMENT OF PATIENT CARE PER NURSING PROTOCOL Performed By: #### L501.080 #### [facility] Point of Care [address] [place] [address] CBC-COMPLETE BLOOD CNT Collected: 07/24/2018 Status: F Source: [place] NO DIFF 7:30 AM [facility] REPOSITORY TYPE CODE TESTS RESULT OUT OF RANGE REFERENCE UNITS LAB L100.1000 4.4-11.0 K/mm3 High WBC 16.4 LAB L100.1200 4.2-5.4 M/mm3 Low RBC 4.07 LAB L100.1300 12.0-15.0 g/dl Low HGB 11.6 LAB L100.1400 37-47 % Low HCT 36.7 LAB L100.1500 81-99 fL Normal MCV 90.2 LAB L100.1600 27.0-32.0 pg Normal MCH 28.5 LAB L100.1700 32-36 g/gl Low MCHC 31.6 LAB L100.1810 11.6-14.6 % Normal RDW CV 14.2 LAB L100.1820 35.1-43.9 fl High RDW SD 46.8 LAB L100.1900 150-450 K/mm3 Normal PLT 221 LAB L100.2000 6.2-12.0 fl Normal MPV 9.5 Performed By: #### L100.0500 #### [facility] [address] [place], [address] BASIC METABOLIC Collected: 07/24/2018 Status: F Source: [place] PROFILE (BMP) 7:30 AM [facility] REPOSITORY TYPE CODE TESTS RESULT OUT OF RANGE REFERENCE UNITS LAB L501.0100 74-106 mg/dL High GLU 269 Result Comment: Glucose result greater than or equal to 200 mg/dL suggests DIABETES MELLITUS per A.D.A. criteria. Please note revised GLUCOSE reference range effective 2017. LAB L501.1000 7-18 mg/dL Normal BUN 13 LAB L501.1100 0.55-1.02 mg/dL Normal CREAT,SERUM 0.65 Result Comment: The validity of the calculated GFR AND GFRAA in patients over 70 years has not been determined. Clinical correlation is essential. LAB L501.1110 >60 mL/min Normal EST GFR 101 Result Comment: Non- GFR Calc LAB L501.1115 >60 mL/min Normal EST GFR - AA 122 Result Comment: GFR Calc LAB L501.1255 ml/min Normal Estimated CRCL 74.66 LAB L501.1300 10-20 RATIO Normal BUN/CRE 20.0 LAB L501.2200 8.5-10 mg/dL Normal .1 CA 9.0 LAB L501.5300 136-14 mmol/L Normal 5 NA 137 LAB L501.5600 3.5-5. mmol/L Normal 1 K 4.2 LAB L501.5900 98-107 mmol/L Normal CL 98 LAB L501.6100 21.0-3 mmol/L High 2.0 CO2 33.0 LAB L501.6200 5-15 Normal GAP 6 Performed By: #### L500.2500, L501.5200 #### [facility] [address] [place], [address] MAGNESIUM Collected: 07/24/2018 Status: F Source: [place] 7:30 AM [facility] REPOSITORY TYPE CODE TESTS RESULT OUT OF RANGE REFERENCE UNITS LAB L501.5200 1.6-2.6 mg/dL Normal MG 2.2 Performed By: #### L500.2500, L501.5200 #### [facility] [address] [place], [address] BEDSIDE GLUCOSE Collected: 07/23/2018 Status: F Source: [place] 9:54 PM [facility] REPOSITORY TYPE CODE TESTS RESULT OUT OF REFERENCE UNITS RANGE LAB L501.080 70-110 mg/dL High BEDSIDE GLU 327 Result Comment: MANAGEMENT OF PATIENT CARE PER NURSING PROTOCOL Performed By: #### L501.080 #### [facility] Point of Care [address] [place] [address] BEDSIDE GLUCOSE Collected: 07/23/2018 Status: F Source: [place] 4:35 PM [facility] REPOSITORY TYPE CODE TESTS RESULT OUT OF REFERENCE UNITS RANGE LAB L501.080 70-110 mg/dL High BEDSIDE GLU 278 Result Comment: MANAGEMENT OF PATIENT CARE PER NURSING PROTOCOL Performed By: #### L501.080 #### [facility] Point of Care [address] [place] [address] PROGRESS Observed: 07/23/2018 Status: COMPLETED Source: [place] 12:42 PM [facility] REPOSITORY HNO ID: [id number] Author: Asia (Rn) Indra Service: (none) Author Type: Registered Nurse Type: Progress Notes Filed: 07/23/2018 5:32 PM Note Text: PRIMARY CARE COORDINATION FOLLOW-UP NOTE Provider Action/FYI FYI Patient identified by name and date of . YES Spoke to PCP staff, JONNY and [facility] SW, Radha Aller Concerns: TC to Radha FULLER at [facility], discussed all of below. Also discussed documentation regarding pt going to [facility]. Radha states that discussion was a formality in case pt shows debility following pneumonia. States she just received guardianship paperwork from CM [facility] and she tried to call guardian but mailbox was full. Discussed PCC calling CM at [facility] to discuss PT therapy. Discussed below with PCP staff and SW. Informed PCC had call PT therapist at [facility] and she felt pt wasn't just using PT as social situation and pt was making progress so we didn't decrease PT visit pattern. PCC had called Leola at [facility] and left her a message with that information. Also pt was seen for dizziness and PCP did a physical evaluation and pt had objective symptoms of vestibular issues which is why he ordered the vestibular therapy. Pt admitted to [facility] yesterday with pneumonia. [facility] Noted pt's CM at [facility], Leola, told SW that she felt patient's PT appts were seen by pt as just socialization and she doesn't f/u with exercises at home. Also pt is seeing PT for vestibular therapy but they are not seeing any dizziness on patient's part at home and she is able to maneuver up a curved stairway at intermediate without any issues. Leola states if patient's behavior continues she may not be able to stay in intermediate. Savings Teller plan for next outreach: Will follow up at patient's discharge Signature Asia Burrell RN July 23, 2018 BEDSIDE GLUCOSE Collected: 07/23/2018 Status: F Source: [place] 11:27 AM [facility] REPOSITORY TYPE CODE TESTS RESULT OUT OF REFERENCE UNITS RANGE LAB L501.080 70-110 mg/dL High BEDSIDE GLU 363 Result Comment: MANAGEMENT OF PATIENT CARE PER NURSING PROTOCOL Performed By: #### L501.080 #### [facility] Point of [address] [place], [place] [address] Observed: 07/23/2018 Status: F Source: [place] RESPIRATORY PANEL 11:08 AM [facility] MOLECULAR REPOSITORY RP PANEL Normal Reference Range = Not Detected Copy of report sent to Infection Control Printer [id number] 07/23/18 1351 LONG. RESULTS CALLED TO ELLY/MS2 07/23/18 1352 Candida Loyd. ADENOVIRUS Not Detected HUMAN METAPHNEUMO Not Detected INFLUENZA A Not Detected INFLUENZA A (SUBTYPE H1) Not Detected INFLUENZA A (SUBTYPE H3) Not Detected INFLUENZA B Not Detected PARAINFLUENZA 1 Not Detected PARAINFLUENZA 2 Not Detected PARAINFLUENZA 3 Not Detected PARAINFLUENZA 4 Not Detected RHINOVIRUS Positive for RHINOVIRUS by NAAT technology RSV A Not Detected RSV B Not Detected NAAT METHOD Testing was performed using nucleic acid amplification ORGANISM 1: RHINOVIRUS Performed By: #### M100.638 #### [facility] [address] [place], [address] PROGRESS Observed: 07/23/2018 Status: COMPLETED Source: [place] 10:35 AM [facility] REPOSITORY HNO ID: [id number] Author: Asia (Rn) Indra Service: (none) Author Type: Registered Nurse Type: Progress Notes Filed: 07/23/2018 11:45 AM Note Text: PRIMARY CARE COORDINATION QUICK NOTE Provider Action/FYI PLEASE FILE MEDICATION UPDATES Last visit note from Dr. Ramirez faxed and placed on PCP desk PT ADMITTED TO [facility] ON 07/22 WITH DX PNEUMONIA Patient identified by name and date . Medications reviewed with [facility] faxed list. SOFT TISSUE NECK WITH Observed: 07/23/2018 Status: F Source: [place] CONTRAST 7:47 AM [facility] REPOSITORY [facility] Imaging Services [address] [place] [address] Soft Tissue Neck WITH Contrast MR#: [id number] Acct: [id number] Name: BRITTNEE LE Rep #: [id number] : 1965 F 52 From: Reina Mcrae MD PCP: Boris Jones MD Status: ADM IN Study: Soft Tissue Neck WITH Contrast Date of Exam: 07/23/18 Exam# [id number] Ordering Dr: Lauro Noguera MD STUDY: CT SOFT TISSUE NECK WITH CONTRAST REASON FOR EXAM: Female, 52 years old. Stridor, COPD RADIATION DOSAGE (If Supplied By Facility): CTDIvol = ( 12.42 ) mGy, DLP = ( 511.94 ) mGycm TECHNIQUE: The patient was scanned in a multi-detector CT scanner. High resolution transaxial imaging was performed following intravenous administration of 75 ml of Isovue 370 contrast material. Sagittal and coronal images were reconstructed. Individualized dose optimization techniques were used for this CT. COMPARISON: None. FINDINGS: Normal bilateral parotid glands. Normal bilateral test and turn up technician spaces. Normal bilateral parapharyngeal spaces. Normal bilateral carotid spaces. Normal bilateral sublingual and submandibular glands and spaces. Normal visualized nasopharynx. Normal retropharyngeal space. Normal perivertebral space. Normal visualized bilateral faucial tonsils. The visualized tongue, tongue base and oropharynx are normal. The visualized cervical lymph nodes (levels I-) are within normal size limits, and maintain normal morphology. There is no demonstrated solid or cystic mass lesion. There is no abnormal contrast enhancement. Normal epiglottis, bilateral vallecula and hypopharynx. The pre-epiglottic and paraglottic adipose spaces are normal. Normal visualized bilateral piriform sinuses, aryepiglottic folds, vocal cords, and arytenoid-cricoid articulations. Normal subglottic trachea. Normal bilateral lobes of the thyroid gland. Normal visualized pulmonary apices. Minimal opacity is noted in anterior ethmoid air spaces on the right. Otherwise the sinuses are clear. Normal visualized cervical spine. CT/Soft Tissue Neck WITH Contrast IMPRESSION: Normal enhanced CT examination of the soft tissues of the neck. Electronically Signed: Reina Mcrae MD at 10:50 EDT , Service support , CC: Lauro Noguera MD; Boris Jones MD 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: Signed BEDSIDE GLUCOSE Collected: 07/23/2018 Status: F Source: [place] 6:43 AM [facility] REPOSITORY TYPE CODE TESTS RESULT OUT OF REFERENCE UNITS RANGE LAB L501.080 70-110 mg/dL High BEDSIDE GLU 275 Result Comment: MANAGEMENT OF PATIENT CARE PER NURSING PROTOCOL Performed By: #### L501.080 #### [facility] Point of Care [address] [place], [place] [address] CBC W/DIFF, AUTOMATED Collected: 07/23/2018 Status: F Source: [place] 6:30 AM [facility] REPOSITORY TYPE CODE TESTS RESULT OUT OF RANGE REFERENCE UNITS LAB L100.1000 4.4-11.0 K/mm3 High WBC 19.5 LAB L100.1200 4.2-5.4 M/mm3 Normal RBC 4.24 LAB L100.1300 12.0-15.0 g/dl Normal HGB 12.2 LAB L100.1400 37-47 % Normal HCT 38.0 LAB L100.1500 81-99 fL Normal MCV 89.6 LAB L100.1600 27.0-32.0 pg Normal MCH 28.8 LAB L100.1700 32-36 g/gl Normal MCHC 32.1 LAB L100.1810 11.6-14.6 % Normal RDW CV 14.2 LAB L100.1820 35.1-43.9 fl High RDW SD 45.9 LAB L100.1900 150-450 K/mm3 Normal PLT 227 LAB L100.2000 6.2-12.0 fl Normal MPV 10.0 LAB L100.2100 47-70 % High NEUT% 85.9 LAB L100.2200 19-41 % Low LY% 9.1 LAB L100.2300 0-10 % Normal MONO% 4.4 LAB L100.2400 0-5 % Normal EO% 0.0 LAB L100.2500 0-1 % Normal BASO% 0.1 LAB L100.2550 0.0-0.9 % Normal IM GRAN % 0.500 Result Comment: IG% - Immature Granulocytes (promyelocytes, myelocytes and metamyelocytes) > 1% indicates that a LEFT SHIFT is Present. LAB L100.2620 2.0-7.7 X10 3/uL High Absolute Neut 16.7 LAB L100.2720 0.83-4.51 X10 3/ul Normal Absolute Lymph 1.77 Performed By: #### L100.0100 #### [facility] [address] [place], [place], [address] BASIC METABOLIC Collected: 07/23/2018 Status: F Source: [place] PROFILE ([facility]) 6:30 AM [facility] REPOSITORY TYPE CODE TESTS RESULT OUT OF RANGE REFERENCE UNITS LAB L501.0100 74-106 mg/dL High GLU 277 Result Comment: Glucose result greater than or equal to 200 mg/dL suggests DIABETES MELLITUS per A.D.A. criteria. Please note revised GLUCOSE reference range effective 2017. LAB L501.1000 7-18 mg/dL Normal BUN 9 LAB L501.1100 0.55-1.02 mg/dL Low CREAT,SERUM 0.49 Result Comment: The validity of the calculated GFR AND GFRAA in patients over 70 years has not been determined. Clinical correlation is essential. LAB L501.1110 >60 mL/min Normal EST GFR 139 Result Comment: Non- GFR Calc LAB L501.1115 >60 mL/min Normal EST GFR - AA 168 Result Comment: GFR Calc LAB L501.1255 ml/min Normal Estimated CRCL 99.04 LAB L501.1300 10-20 RATIO Normal BUN/CRE 18.3 LAB L501.2200 8.5-10 mg/dL Normal .1 CA 9.3 LAB L501.5300 136-14 mmol/L Normal 5 NA 138 LAB L501.5600 3.5-5. mmol/L Normal 1 K 3.9 LAB L501.5900 98-107 mmol/L Normal CL 100 LAB L501.6100 21.0-3 mmol/L Normal 2.0 CO2 29.0 LAB L501.6200 5-15 Normal GAP 9 Performed By: #### L500.2500 #### [facility] [address] [place], [address] CNPTOUTREA Observed: 07/23/2018 Status: COMPLETED Source: [place] 12:00 AM [facility] REPOSITORY Patient Outreach (FAMPWS) BRITTNEE LE ([id number]) 1965 F Date Time Provider Department 07/23/18 ASIA BURRELL (RN) REMIWS During your visit today, we recorded the following information about you: Asia Burrell RN 07/23/2018 5:32 PM Signed PRIMARY CARE COORDINATION FOLLOW-UP NOTE Provider Action/FYI FYI Patient identified by name and date of . YES Spoke to PCP staff, CC JONNY and [facility] Radha FULLER Concerns: TC to Radha FULLER at [facility], discussed all of below. Also discussed documentation regarding pt going to [facility]. Radha states that discussion was a formality in case pt shows debility following pneumonia. States she just received guardianship paperwork from CM at [facility] and she tried to call guardian but mailbox was full. Discussed PCC calling CM at [facility] to discuss PT therapy. Discussed below with PCP staff and SW. Informed PCC had call PT therapist at [facility] and she felt pt wasn't just using PT as social situation and pt was making progress so we didn't decrease PT visit pattern. PCC had called Leola at [facility] and left her a message with that information. Also pt was seen for dizziness and PCP did a physical evaluation and pt had objective symptoms of vestibular issues which is why he ordered the vestibular therapy. Pt admitted to [facility] yesterday with pneumonia. PCC read SW/CM note in [facility] at [facility]. Noted pt's CM at [facility], Leola, told SW that she felt patient's PT appts were seen by pt as just socialization and she doesn't f/u with exercises at home. Also pt is seeing PT for vestibular therapy but they are not seeing any dizziness on patient's part at home and she is able to maneuver up a curved stairway at intermediate without any issues. Leola states if patient's behavior continues she may not be able to stay in intermediate. [facility] plan for next outreach: Will follow up at patient's discharge Signature Asia Burrell RN July 23, 2018 Asia Burrell RN 07/27/2018 11:43 AM Addendum PRIMARY CARE COORDINATION FOLLOW-UP NOTE Provider Action/FYI FYI Patient identified by name and date of . YES Summary: Reviewed [facility] at [facility], pt may be discharged with oxygen. If pt has oxygen she cannot return to the intermediate because they are non-skilled CGs. SW checking with [facility] regarding transfer after discharge if pt requires oxygen. [facility] Teller plan for next outreach: Will follow up after discharge Asia Burrell RN July 27, 2018 Allergies As of Date: 07/23/2018 (No Known Allergies) Date Reviewed: 07/21/2018 Reviewed by: Danette Dominguez RN - Fully Assessed Reason for Visit: Transition Of Care [4074] Prescriptions as of 07/23/2018 Sig: GLIPIZIDE 5 MG TABLET TAKE 1 TABLET TWICE A DAY POTASSIUM CHLORIDE ER 20 MEQ * TAKE 1 TABLET BY MOUTH DAILY FERROUS GLUCONATE 324 MG (38 * TAKE 1 TABLET BY MOUTH TWICE * AMOXICILLIN 875 MG-POTASSIUM * Take 1 tablet by mouth twice * METFORMIN 500 MG TABLET TAKE 2 TABLETS BY MOUTH TWICE* PRAVASTATIN 20 MG TABLET TAKE 1 TABLET BY MOUTH ONCE D* LUBIPROSTONE 24 MCG CAPSULE Take 1 capsule by mouth twice* MILK OF MAGNESIA 400 MG/5 ML * TAKE 15ML BY MOUTH DAILY N* LANTUS U-100 INSULIN 100 UNIT* Give 24 units subq daily at 4* COMPOUNDED PRESCRIPTION Please discontinue Tylenol ES* STOOL SOFTENER 100 MG CAPSULE TAKE 1 CAPSULE TWICE A DAY Patient not taking: Reported on 03/16/2018 ASPIRIN 325 MG TABLET,DELAYED* Take 1 tablet by mouth once d* ACETAMINOPHEN 500 MG TABLET Take 1 tablet by mouth daily * FUROSEMIDE 20 MG TABLET Take 1 tablet by mouth once d* WHEAT DEXTRIN 3 GRAM/3.8 GRAM* Stir 2 teaspoonfuls into 4-8 * CHOLECALCIFEROL (VITAMIN D3) * Take 1 capsule by mouth once * CLOZAPINE 100 MG TABLET take one tablet at noon, 2 ta* ALBUTEROL SULFATE HFA 90 MCG/* Inhale 2 Puffs as instructed * INSULIN SYRINGE-NEEDLE U-100 * 10 Units once daily. FLOVENT DISKUS 250 MCG/ACTUAT* INHALE ONE PUFF BY MOUTH TWIC* FISH OIL CONCENTRATE ORAL Take by mouth once daily. DESVENLAFAXINE SUCCINATE ER 5* Take 50 mg by mouth once ziggy* LANCETS test BS twice daily 2 days a * RISPERIDONE 2 MG DISINTEGRATI* Take 2 mg by mouth once daily. BLOOD SUGAR DIAGNOSTIC STRIPS test BS twice daily - dx - 25* CLONAZEPAM 1 MG TABLET Take 0.5 mg Bid, 1 mg po at HS PEN NEEDLE, DIABETIC 31 GAUGE* Use one needle per dose. Once* BLOOD-GLUCOSE METER KIT Used once daily to check bloo* * RISPERIDONE MICROSPHERES 50 M* Inject 2 mL intramuscularly e* Problem List As Of Date 07/23/2018 Noted Resolved Schizophreniform disorder, chronic condition (H* Priority: Mild More... Other abnormal glucose [R73.09] 04/29/2018 Priority: A More... DM w/o Complication Type II [E11.9] INVALID FOR*02/22/2014 Priority: Moderate Gastritis [K29.70] INVALID FOR* Routine general medical examination at a [facility]*INVALID FOR*11/26/2011 Class: Chronic More... Routine gynecological examination [Z01.419] INVALID FOR*11/26/2011 Class: Chronic More... Vitamin D deficiency [E55.9] INVALID FOR* Priority: A More... Liver Function Test Abnormality [R94.5] INVALID FOR* More... 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 Encounter for screening for malignant neoplasm *INVALID FOR* Postmenopausal bleeding [N95.0] INVALID FOR* More... Acute diastolic CHF (congestive heart failure) *INVALID FOR* More... Obesity, Class II, BMI 35-39.9 [E66.9] INVALID FOR* Encounter Status:Closed by ASIA BURRELL on 07/27/18 BEDSIDE GLUCOSE Collected: 07/22/2018 Status: F Source: [place] 9:06 PM [facility] REPOSITORY TYPE CODE TESTS RESULT OUT OF REFERENCE UNITS RANGE LAB L501.080 70-110 mg/dL High BEDSIDE GLU 351 Result Comment: MANAGEMENT OF PATIENT CARE PER NURSING PROTOCOL Performed By: #### L501.080 #### [place] [facility] [address] EMERGENCY DEPARTMENT Observed: 07/22/2018 Status: F Source: [place] SUMMARY 4:26 PM [facility] REPOSITORY [facility] Medical Records Department [address] [place] [address] Emergency Department Summary 07/22/18 0959 MR#: [id number] Acct: [id number] Name: BRITTNEE LE Rep #: [id number] : 1965 52 From: Adriano Frazier MD PCP: Boris Jones MD Status: ADM SUKHJINDER - ER Visit Summary Date of Service: 07/22/18 Chief Complaint: Shortness of breath History of Present Illness: The patient is a 52 F history of COPD, insulin-dependent diabetes and sleep apnea on CPAP. Patient lives in a intermediate. She is been short of breath with a nonproductive cough since last night. Denies any fever. No vomiting or diarrhea. No melena. She denies chest pain except with coughing. No history of DVT or PE. No recent travel, surgery, mobilization. No calf pain or swelling. No hemoptysis. Physical Examination: Middle-aged female. Currently getting an aerosol treatment. Vital signs are stable. She is tachycardic at 120. On oxygen her pulse ox is 98% no hypoxia. H EENT exam unremarkable. Moist mucous members. Neck nontender no lymphadenopathy. Lungs prolonged expiratory phase throughout. X-ray wheezing on both sides. No rales. No rhonchi. Heart tachycardic rate about 120. No murmur. Chest wall nontender. Abdomen soft nontender. Normal bowel sounds no peritoneal signs. She is moving all 4 extremities. Calves are nontender without edema or cords. Neurologically she is awake and alert with no focal motor deficits. Test Results: CBC shows a white count of 16,000. Hemoglobin 11.9. Sodium 132. Normal gap normal creatinine. Glucose of 306. Chest x-ray shows chronic changes consistent with COPD. Right upper lobe infiltrate consistent with pneumonia. EKG sinus tachycardia rate of 128 with no signs of KS nor ischemia. Emergency Department Course and Treatment: Vision with acute exacerbation of COPD with wheezing. She will be treated with DuoNeb and albuterol aerosols. IV Solu-Medrol. Treatment Plan: Patient was treated with aerosols, Solu-Medrol, and IV antibiotics. She was started on IV Rocephin and Zithromax for community-acquired pneumonia. On repeat exam she is doing better but still wheezing. She needs to be admitted for further respiratory therapies. I have already spoken to the hospitalist Dr. Lauro Boone for admission Disposition: Admission Impression: Acute dyspnea secondary to exacerbation of COPD Acute right upper lobe community-acquired pneumonia History of insulin-dependent diabetes This note was generated with sharing.itation software. It may contain incorrect words, spelling, and punctuation that were not noted in review of the chart prior to signing ED Disposition - Plan for ED Patient: Chief Complaint: Shortness of Breath Referrals: Boris Jones MD [Primary Care Provider] - What to do if you have Problems For any increased pain, shortness of breath, bleeding, nausea or vomiting, chest pain, or any unexpected problems, contact your Primary Care Provider. Call [facility] ([phone]) or report to the closest Emergency Room. Call 911 if necessary. 07/22/18 1626 <Electronically signed by Adriano Frazier MD> Date Adriano Frazier MD Cosigner Signature (If Indicated): Date CC: Boris Jones MD BEDSIDE GLUCOSE Collected: 07/22/2018 Status: F Source: [place] 4:25 PM [facility] REPOSITORY TYPE CODE TESTS RESULT OUT OF REFERENCE UNITS RANGE LAB L501.080 70-110 mg/dL High BEDSIDE GLU 282 Result Comment: MANAGEMENT OF PATIENT CARE PER NURSING PROTOCOL Performed By: #### L501.080 #### [facility] Point of Care [address] [place] [address] Observed: 07/22/2018 Status: F Source: [place] INFLUENZA A+B (RAPID 3:58 PM [facility] ROSA) REPOSITORY FLU A/B Rapid Negative test results should be confirmed by culture. Order Rapid Viral Culture for Influenzae A+B ([id number]) if clinically indicated. Influenza Ag, Direct Presumptive NEGATIVE for Influenza A/B Antigen (See Note) Performed By: #### M101.0101 #### [facility] [address] [facility] [place], [address] STREP Observed: 07/22/2018 Status: F Source: [place] PNEUMONIAE ANTIG(UR,CSF) 3:55 PM [facility] REPOSITORY S pneumo Ag URINE INTERPRETATION Negative Urine Presumptive negative for pneumococcal pneumonia, suggesting no current or recent pneumococcal infection. Infection due to S pneumoniae cannot be ruled out since the antigen present in the sample may be below the detection limit of the test. Strep pneumo Test Negative URINE (See interpretation below) Performed By: #### M300.4600 #### [facility] [address] [place] [address], [id number] Observed: 07/22/2018 Status: F Source: [place] LEGIONELLA ANTIGEN 3:55 PM [facility] URINE REPOSITORY Specimen Source: URINE, CLEAN CATCH Legionella, UR Legionella Antigen result interpretation: Negative Presumptive negative for Legionella pneumophila serogroup 1 antigen in urine, suggesting no recent or current infection. Legionella Ag, Urine Negative (See interpretation below) Performed By: #### M300.4500 #### [facility] [address] [place] [address], [id number] Observed: 07/22/2018 Status: F Source: [place] CULTURE, BLOOD (WB) 2:10 PM [facility] REPOSITORY Has pt arrived? Y BC No growth in 5 days. Performed By: #### M200.1000 #### [facility] [address] [place] [address], [id number] CHEST WITHOUT Observed: 07/22/2018 Status: F Source: [place] CONTRAST 1:53 PM [facility] REPOSITORY [facility] Imaging Services [address] [place] [address] Chest without Contrast MR#: [id number] Acct: [id number] Name: BRITTNEE LE Rep #: [id number] : 1965 F 52 From: Reina Mcrae MD PCP: Boris Jones MD Status: ADM SUKHJINDER Study: Chest without Contrast Date of Exam: 07/22/18 Exam# [id number] Ordering Dr: Lauro Noguera MD STUDY: CT CHEST WITHOUT CONTRAST REASON FOR EXAM: Female, 52 years old. WHEEZING RADIATION DOSAGE (If Supplied By Facility): CTDIvol = ( 19.80 ) mGy, DLP = ( 580.55 ) mGycm TECHNIQUE: Transaxial imaging was performed without the administration of intravenous contrast material. Individualized dose optimization techniques were used for this CT. COMPARISON: None. FINDINGS: There are bilateral peribronchial patchy infiltrates in association with the upper lobes consistent with bilateral bronchial pneumonia. No evidence of a cavitary lesion. No pleural effusion. Normal heart and pericardium. There are multiple small lymph nodes within the mediastinum, which are normal in size and morphology most compatible with reactive lymph hyperplasia. Normal hilar regions. Normal unenhanced pulmonary arteries. Normal aorta arch and descending thoracic aorta. Normal osseous structures. Hepatomegaly with severe hepatic steatosis noted. CT/Chest without Contrast IMPRESSION: Bilateral upper lobe pulmonary parenchymal infiltrates, consider bronchopneumonia. Hepatomegaly with hepatic steatosis. Electronically Signed: Reina Mcrae MD at 15:20 EDT , Service support , CC: Lauro Noguera MD; Boris Jones MD 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: Signed HISTORY AND PHYSICAL Observed: 07/22/2018 Status: F Source: [place] EXAM 12:40 PM [facility] REPOSITORY [facility] Medical Records Department [address] [place] [address] History and Physical 07/22/18 1224 MR#: [id number] Acct: [id number] Name: BRITTNEE LE Rep #: [id number] : 1965 52 From: Lauro Noguera MD PCP: Boris Jones MD Status: REG ER Y Location: ED Problem List (1) FTT (failure to thrive) in adult Status: Resolved (2) COPD (chronic obstructive pulmonary disease) Status: Chronic (3) Diabetes mellitus type 2 in obese Status: Chronic (4) HTN (hypertension) Status: Chronic (5) Hyperlipidemia Status: Chronic (6) Nonproductive cough Status: Chronic (7) Schizophrenia Status: Chronic (8) Wheezing Status: Acute (9) copd Status: Acute History of Present Illness Date of Admission: 07/22/18 Chief Complaint: Shortness of breath and wheezing The patient is a 52 year old F with past medical history significant for learning disability, schizophrenia, COPD currently resident of the intermediate who was brought in on account of shortness of breath. Patient symptoms have apparently been ongoing for the past couple of days. Shortness of breath was not related to any activity. She denied any fever no chills. She however did experience wheezing. In view of persistent symptoms patient was brought to the emergency department. Chest x-ray obtained was questionable for right upper lobe pneumonia. An assessment of COPD exacerbation was also made treatment initiated per protocol admitted to regular nursing floor for further management Past Medical History Past Medical History (Chronic Problems): Chronic Problems Nonproductive cough (Chronic) COPD (chronic obstructive pulmonary disease) (Chronic) Hyperlipidemia (Chronic) Diabetes mellitus type 2 in obese (Chronic) HTN (hypertension) (Chronic) Schizophrenia (Chronic) Allergies No Known Allergies Allergy (Verified 07/22/18 09:30) Home Medications: Ambulatory Orders Medication Instructions Recorded Clozapine [Clozaril] 100 mg PO LUNCH 03/28/14 Metformin HCl [Glucophage] 1,000 mg PO BID 03/28/14 Surgical History: noncontributory Psychiatric History: Anxiety, Depression, Schizophrenia 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 Dyspnea Respiratory: Reports: Cough, Shortness of Breath Gastrointestinal: Denies: Abdominal Pain, Hematemesis, Hematochezia, Nausea, Melena, Vomiting Genitourinary: Denies: Dysuria, Frequency, Hematuria, Urgency Musculoskeletal: Denies: Joint Pain, Joint Tenderness Skin: Denies: Rash Neurological: Denies: Focal weakness, Numbness, Tingling Psychiatric: Denies: Homicidal Ideations, Suicidal Ideations Hematologic/ Lymphatic: Denies: Easy Bruising, Easy Bleeding VTE Information - Inpt Only VTE Present on Admission: No VTE Mechan Device Prophylaxis: Knee High PATRICIA Hose VTE Pharm Prophylaxis ordered?: Yes Objective: GENERAL: cooperative HEENT: Atraumatic; moist oral mucosa EYES; Anicteric, Normal Conjunctiva NECK; supple, normal thyroid, no distended JVD. RESPIRATORY: Diminished to auscultation bilaterally, bilateral wheezes CARDIOVASCULAR: Regular S1 S2, no audible murmurs GI: soft, non-tender, normoactive bowel sounds, : No Renal angle tenderness; EXTREMITIES: No edema, no clubbing, no cyanosis. MUSCULOSKELETAL: No Joint Tenderness; no muscle waisting NEURO: Awake; no lateralizing signs. SKIN: No Rash PSYCH; Normal affect - Physical Exam Vital Signs Temp Pulse Resp BP Pulse Ox 98.4 F 126 H 24 H 135/77 H 98 07/22/18 09:26 07/22/18 10:45 07/22/18 10:45 07/22/18 10:45 07/22/18 09:26 Oxygen Flow Rate (L/min) 3 Oxygen Delivery Method Nasal Cannula Weight: 89 kg Body Mass Index (BMI) 37.0 Laboratory Tests Past 24 Hrs WBC 16.3 H RBC 4.10 L Hgb 11.9 L Hct 36.4 L MCV 88.8 MCH 29.0 MCHC 32.7 Assessment/Plan All Active Problems Wheezing (Acute) FTT (failure to thrive) in adult (Resolved) copd (Acute) Patient is a 52-year-old lady presented with progressive shortness of breath with significant wheezing found to have right upper lobe infiltrate consistent with pneumonia admitted to monitored bed for further management 1. Acute respiratory insufficiency secondary to combination of COPD with acute exacerbation as well as community-acquired pneumonia 2. Pneumonia: Suspected to be secondary to streptococci pneumonia. Patient is admitted to regular floor. Blood and sputum cultures sent. Patient placed on Rocephin and Zithromax. He was also placed on oxygen titrated to keep also is greater than 90 3. Acute COPD exacerbation: Possibly preceded by above patient treated with bronchodilator treatment, systemic steroid in addition to antibiotics as well as supplemental oxygen 4. Chronic diastolic congestive heart failure stable 5. Diabetes mellitus type 2 with complications including hyperglycemia; patient is on long-acting insulin Lantus did continue with home dose and subsequently placed on Accu-Cheks before meals and at bedtime with sliding scale coverage 6. Obstructive sleep apnea patient is on CPAP at night 7. Schizophrenia currently stable: Did continue with patient anti-psychotropic medications 8. Dyslipidemia-patient is on statin therapy, continued at home dose 9. Obesity with BMI of 37 10. DVT prophylaxis SC Lovenox Code Visit OBSV E AND M: 04223 Initial observation care L3 07/22/18 1240 <Electronically signed by Lauro Noguera MD> Date Lauro Noguera MD Cosigner Signature: Date (if applicable) CC: Lauro Noguera MD; Boris Jones MD Signed CHEST PA AND LATERAL Observed: 07/22/2018 Status: F Source: [place] 9:59 AM [facility] REPOSITORY [facility] Imaging Services [address] [place] [address] Chest PA and Lateral MR#: [id number] Acct: [id number] Name: BRITTNEE LE Rep #: [id number] : 1965 F 52 From: Reina Mcrae MD PCP: Boris Jones MD Status: REG ER Study: Chest PA and Lateral Date of Exam: 07/22/18 Exam# [id number] Ordering Dr: Adriano Frazier MD STUDY: X-RAY CHEST REASON FOR EXAM: Female, 52 years old. Shortness of breath, dyspnea TECHNIQUE: PA and lateral views of the chest. COMPARISON: October 17, 2017 FINDINGS: Cardiac monitoring leads are present. There is a focal area of increased opacity, new when compared to prior study and association with the right upper lobe laterally and inferiorly. This is consistent with that of underlying pulmonary parenchymal infiltrate. There persists linear opacity at the left lung base, likely atelectasis versus scar. There appears mild bronchial wall prominence which may relate to bronchial inflammatory process. There is no demonstrated pleural abnormality. Normal size heart. Normal mediastinum and reshma. Normal visualized pulmonary arteries. Normal visualized aortic arch and descending thoracic aorta. Normal visualized thoracic spine. Normal visualized ribs, clavicles, and shoulders. There is no demonstrated abnormality of the visualized soft tissue structures of the upper abdomen. RAD/Chest PA and Lateral IMPRESSION: There is now a small focal right upper lobe pulmonary parenchymal consolidation, consider infiltrate. Follow-up to clearing recommended. Electronically Signed: Reina Mcrae MD at 10:52 EDT , Service support , CC: Adriano Frazier MD; Boris Jones MD 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: Signed BASIC METABOLIC Collected: 07/22/2018 Status: F Source: [place] PROFILE (BMP) 9:38 AM [facility] REPOSITORY TYPE CODE TESTS RESULT OUT OF RANGE REFERENCE UNITS LAB L501.0100 74-106 mg/dL High GLU 306 Result Comment: Glucose result greater than or equal to 200 mg/dL suggests DIABETES MELLITUS per A.D.A. criteria. Please note revised GLUCOSE reference range effective 2017. LAB L501.1000 7-18 mg/dL Normal BUN 8 LAB L501.1100 0.55-1.02 mg/dL Normal CREAT,SERUM 0.78 Result Comment: The validity of the calculated GFR AND GFRAA in patients over 70 years has not been determined. Clinical correlation is essential. LAB L501.1110 >60 mL/min Normal EST GFR 81 Result Comment: Non- GFR Calc LAB L501.1115 >60 mL/min Normal EST GFR - AA 98 Result Comment: GFR Calc LAB L501.1255 ml/min Normal Estimated CRCL 62.22 LAB L501.1300 10-20 RATIO Normal BUN/CRE 10.2 LAB L501.2200 8.5-10 mg/dL Normal .1 CA 8.8 LAB L501.5300 136-14 mmol/L Low 5 NA 132 LAB L501.5600 3.5-5. mmol/L Normal 1 K 3.8 LAB L501.5900 98-107 mmol/L Normal CL 98 LAB L501.6100 21.0-3 mmol/L Normal 2.0 CO2 24.0 LAB L501.6200 5-15 Normal GAP 10 Performed By: #### L500.2500 #### [facility] [address] [place], [address] CBC W/DIFF, AUTOMATED Collected: 07/22/2018 Status: F Source: [place] 9:38 AM [facility] REPOSITORY TYPE CODE TESTS RESULT OUT OF RANGE REFERENCE UNITS LAB L100.1000 4.4-11.0 K/mm3 High WBC 16.3 LAB L100.1200 4.2-5.4 M/mm3 Low RBC 4.10 LAB L100.1300 12.0-15.0 g/dl Low HGB 11.9 LAB L100.1400 37-47 % Low HCT 36.4 LAB L100.1500 81-99 fL Normal MCV 88.8 LAB L100.1600 27.0-32.0 pg Normal MCH 29.0 LAB L100.1700 32-36 g/gl Normal MCHC 32.7 LAB L100.1810 11.6-14.6 % Normal RDW CV 14.3 LAB L100.1820 35.1-43.9 fl High RDW SD 45.5 LAB L100.1900 150-450 K/mm3 Normal PLT 199 LAB L100.2000 6.2-12.0 fl Normal MPV 10.3 LAB L100.2100 47-70 % High NEUT% 80.2 LAB L100.2200 19-41 % Low LY% 11.9 LAB L100.2300 0-10 % Normal MONO% 7.5 LAB L100.2400 0-5 % Normal EO% 0.0 LAB L100.2500 0-1 % Normal BASO% 0.2 LAB L100.2550 0.0-0.9 % Normal IM GRAN % 0.200 Result Comment: IG% - Immature Granulocytes (promyelocytes, myelocytes and metamyelocytes) > 1% indicates that a LEFT SHIFT is Present. LAB L100.2620 2.0-7.7 X10 3/uL High Absolute Neut 13.1 LAB L100.2720 0.83-4.51 X10 3/ul Normal Absolute Lymph 1.93 Performed By: #### L100.0100 #### [facility] [address], [address] PROGRESS Observed: 07/22/2018 Status: COMPLETED Source: [place] 8:33 AM [facility] REPOSITORY HNO ID: [id number] Author: Asia (Rn) Indra Service: (none) Author Type: Registered Nurse Type: Progress Notes Filed: 07/22/2018 9:43 AM Note Text: PRIMARY CARE COORDINATION FOLLOW-UP NOTE Provider Action/FYI FYI Patient identified by name and date of . YES Spoke to MICHELE Holguin at [facility] Fax sent to Dr. Ramirez for last visit note Concerns: TC to Ezio, asked since pt isn't coming into office can she fax medication list to P[facility], verbalized agreement TC from [place] GERBER, neetu message stating when she arrived pt was wheezing and having trouble breathing and with her history of pneumonia she called the squad and is taking pt to ER. TC from MICHELE Holguin, states pt is coughing, wheezing and SOB this morning. States pt is able to talk and doesn't appear in distress but cough is consistent. Pt took rescue inhaler without improvement. Instructed to bring pt in to walk in clinic in case she may need a nebulizer treatment. States Dr. Ramirez D/C'd Flovent inhaler and pt is now on Breo and Spiriva. Instructed to bring in medication list with pt. Savings Teller plan for next outreach: Will follow up next week Signature Asia Burrell RN July 22, 2018 CNPTOUTREACH Observed: 07/22/2018 Status: COMPLETED Source: [place] 12:00 AM [facility] REPOSITORY Patient Outreach (FAMPWS) LE,BRITTNEE K ([id number]) 1965 F Date Time Provider Department 07/22/18 ASIA BURRELL (RN) CHRISTIAN During your visit today, we recorded the following information about you: Asia Burrell RN 07/22/2018 9:43 AM Signed PRIMARY CARE COORDINATION FOLLOW-UP NOTE Provider Action/FYI FYI Patient identified by name and date of . YES Spoke to MICHELE Holguin at [facility] Fax sent to Dr. Ramirez for last visit note Concerns: TC to Ezio, asked since pt isn't coming into office can she fax medication list to [facility], verbalized agreement TC from [facility], left message stating when she arrived pt was wheezing and having trouble breathing and with her history of pneumonia she called the squad and is taking pt to ER. TC from MICHELE Holguin, states pt is coughing, wheezing and SOB this morning. States pt is able to talk and doesn't appear in distress but cough is consistent. Pt took rescue inhaler without improvement. Instructed to bring pt in to walk in clinic in case she may need a nebulizer treatment. States Dr. Ramirez D/C'd Flovent inhaler and pt is now on Breo and Spiriva. Instructed to bring in medication list with pt. Savings Teller plan for next outreach: Will follow up next week Signature Asia Burrell RN July 22, 2018 Asia Burrell RN 07/23/2018 11:45 AM Addendum PRIMARY CARE COORDINATION QUICK NOTE Provider Action/FYI PLEASE FILE MEDICATION UPDATES Last visit note from Dr. Ramirez faxed and placed on PCP desk PT ADMITTED TO [facility] ON 07/22 WITH DX PNEUMONIA Patient identified by name and date . Medications reviewed with [facility] faxed list. Allergies As of Date: 07/22/2018 (No Known Allergies) Date Reviewed: 07/21/2018 Reviewed by: Danette Dominguez RN - Fully Assessed Reason for Visit: Patient Accounts Coordinator - Patient Initiated [[id number]] Primary Visit Diagnosis:Hyperlipidemia, unspecified hyperlipidemia type [E78.5] Other Visit Diagnoses:Chronic obstructive pulmonary disease, unspecified COPD type (HCC) [J44.9] Type 2 diabetes mellitus with diabetic nephropathy, unspecified whether half-way insulin use (HCC) [E11.21] LIDA (obstructive sleep apnea) [G47.33] Order(s):omega-3 fatty acids (FISH OIL CONCENTRATE) 1,000 mg capTake 1 capsule by mouth once daily.Disp: Rfl: Insulin Syringe-Needle U-100 (BD INSULIN SYRINGE) 1 mL 28 gauge x 1/2 syrgUse as directed dailyDisp: Rfl: tiotropium (SPIRIVA WITH HANDIHALER) 18 mcg inhalation capsuleInhale 1 capsule as instructed once daily. Use with handihaler. Per Dr. Hall: Rfl: fluticasone-vilanterol (BREO ELLIPTA) 100-25 mcg/dose inhalerInhale 1 Inhalation as instructed once daily. Per Dr. Hall: Rfl: olopatadine (PATANOL) 0.1 % ophthalmic solutionUse 1 Drop in the left eye twice daily as needed. Per Dr. Monzon: 1 BottleRfl: 0 COMPOUNDED PRESCRIPTIONBIPAP of 09/[address] Dr[address] Hall: Rfl: Prescriptions as of 07/22/2018 Sig: GLIPIZIDE 5 MG TABLET TAKE 1 TABLET TWICE A DAY POTASSIUM CHLORIDE ER 20 MEQ * TAKE 1 TABLET BY MOUTH DAILY FERROUS GLUCONATE 324 MG (38 * TAKE 1 TABLET BY MOUTH TWICE * AMOXICILLIN 875 MG-POTASSIUM * Take 1 tablet by mouth twice * METFORMIN 500 MG TABLET TAKE 2 TABLETS BY MOUTH TWICE* PRAVASTATIN 20 MG TABLET TAKE 1 TABLET BY MOUTH ONCE D* LUBIPROSTONE 24 MCG CAPSULE Take 1 capsule by mouth twice* MILK OF MAGNESIA 400 MG/5 ML * TAKE 15ML BY MOUTH DAILY N* LANTUS U-100 INSULIN 100 UNIT* Give 24 units subq daily at 4* COMPOUNDED PRESCRIPTION Please discontinue Tylenol ES* ASPIRIN 325 MG TABLET,DELAYED* Take 1 tablet by mouth once d* FUROSEMIDE 20 MG TABLET Take 1 tablet by mouth once d* WHEAT DEXTRIN 3 GRAM/3.8 GRAM* Stir 2 teaspoonfuls into 4-8 * CHOLECALCIFEROL (VITAMIN D3) * Take 1 capsule by mouth once * CLOZAPINE 100 MG TABLET take one tablet at noon, 2 ta* ALBUTEROL SULFATE HFA 90 MCG/* Inhale 2 Puffs as instructed * DESVENLAFAXINE SUCCINATE ER 5* Take 50 mg by mouth once ziggy* LANCETS test BS twice daily 2 days a * RISPERIDONE 2 MG DISINTEGRATI* Take 2 mg by mouth once daily. BLOOD SUGAR DIAGNOSTIC STRIPS test BS twice daily - dx - 25* CLONAZEPAM 1 MG TABLET Take 0.5 mg Bid, 1 mg po at HS PEN NEEDLE, DIABETIC 31 GAUGE* Use one needle per dose. Once* BLOOD-GLUCOSE METER KIT Used once daily to check bloo* * RISPERIDONE MICROSPHERES 50 M* Inject 2 mL intramuscularly e* OMEGA-3 FATTY ACIDS 1,000 MG * Take 1 capsule by mouth once * INSULIN SYRINGE-NEEDLE U-100 * Use as directed daily TIOTROPIUM BROMIDE 18 MCG CAP* Inhale 1 capsule as instructe* FLUTICASONE 100 MCG-VILANTERO* Inhale 1 Inhalation as instru* OLOPATADINE 0.1 % EYE DROPS Use 1 Drop in the left eye tw* COMPOUNDED PRESCRIPTION BIPAP of 09/19 on 3L oxygen pe* STOOL SOFTENER 100 MG CAPSULE TAKE 1 CAPSULE TWICE A DAY Patient not taking: Reported on 03/16/2018 ACETAMINOPHEN 500 MG TABLET Take 1 tablet by mouth daily * FLOVENT DISKUS 250 MCG/ACTUAT* INHALE ONE PUFF BY MOUTH TWIC* Problem List As Of Date 07/22/2018 Noted Resolved Schizophreniform disorder, chronic condition (H* Priority: Mild More... Other abnormal glucose [R73.09] 04/29/2018 Priority: A More... DM w/o Complication Type II [E11.9] INVALID FOR*02/22/2014 Priority: Moderate Gastritis [K29.70] INVALID FOR* Routine general medical examination at a health*INVALID FOR*11/26/2011 Class: Chronic More... Routine gynecological examination [Z01.419] INVALID FOR*11/26/2011 Class: Chronic More... Vitamin D deficiency [E55.9] INVALID FOR* Priority: A More... Liver Function Test Abnormality [R94.5] INVALID FOR* More... 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 Encounter for screening for malignant neoplasm *INVALID FOR* Postmenopausal bleeding [N95.0] INVALID FOR* More... Acute diastolic CHF (congestive heart failure) *INVALID FOR* More... Obesity, Class II, BMI 35-39.9 [E66.9] INVALID FOR* Prescriptions ordered this encounter Disp Refills Start End OMEGA-3 FATTY ACIDS 1,000 MG CAPSULE 07/27/2018 Class: Med Update Route: ORAL Sig: Take 1 capsule by mouth once daily. INSULIN SYRINGE-NEEDLE U-100 1 ML 28* 07/27/2018 Class: Med Update Sig: Use as directed daily TIOTROPIUM BROMIDE 18 MCG CAPSULE WI* 07/27/2018 Class: Med Update Route: INHALATION Sig: Inhale 1 capsule as instructed once daily. Use with handihaler. Per Dr. Ramirez FLUTICASONE 100 MCG-VILANTEROL 25 MC* 07/27/2018 Class: Med Update Route: INHALATION Sig: Inhale 1 Inhalation as instructed once daily. Per Dr. Ramirez OLOPATADINE 0.1 % EYE DROPS 1 Abiodun* 0 07/27/2018 Class: Med Update Route: LEFT EYE Sig: Use 1 Drop in the left eye twice daily as needed. Per Dr. Alvarenga COMPOUNDED PRESCRIPTION 07/27/2018 Class: Med Update Sig: BIPAP of 12/[address] on [address] Ramirez Medications Discontinued During This Encounter OMEGA-3 FATTY ACIDS (FISH OIL CONCEN* 07/27/2018 Class: Historical Med Route: ORAL Sig: Take by mouth once daily. Disc: Reason for discontinue is not on file. Insulin Syringe-Needle U-100 (BD INS* 100 * 10 09/05/2017 07/27/2018 Route: Miscell. (Med.Supl.;Non-Drugs) Si Units once daily. Disc: Reason for discontinue is not on file. Encounter Status:Closed by ASIA BURRELL on 07/27/18 PROGRESS Observed: 07/21/2018 Status: COMPLETED Source: [place] 2:51 PM [facility] [place] REPOSITORY HNO ID: [id number] Author: Cuate Lara V Service: (none) Author Type: Physician Type: Progress Notes Filed: 07/21/2018 2:55 PM Note Text: SUBJECTIVE: Brittnee Le is a 52 year old female who is here for a left thumb injury. It occurred 3 days ago when thumb was shut in a car door. Symptoms include pain, swelling of thumb. She was seen in [place] ED, has tried thumb splint. 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 [facility], pt was on metformin for a while but taken off - pt never told if she had DM or not - Major depressive disorder, recurrent episode, unspecified - Nonspecific elevation of levels of transaminase or lactic acid dehydrogenase (LDH) - LIDA (obstructive sleep apnea) - Pneumonia - Schizophreniform disorder, chronic condition (HCC) - Simple endometrial hyperplasia without atypia mirena IUD 01/2011 PAST SURGICAL HISTORY Procedure Laterality Date - COLONOSCOPY W/BX 12/19/2016 Normal colonoscopy-10 year follow-up - PAST SURGICAL HISTORY OF 1982 corrective jaw surgery - REMOVAL GALLBLADDER 1998 open Current Outpatient Prescriptions on File Prior to Visit: metFORMIN (GLUCOPHAGE) 500 mg tablet TAKE 2 TABLETS BY MOUTH TWICE DAILY WITH MEALS. . pravastatin (PRAVACHOL) 20 mg tablet TAKE 1 TABLET BY MOUTH ONCE DAILY. lubiprostone (AMITIZA) 24 mcg capsule Take 1 capsule by mouth twice daily with meals. MILK OF MAGNESIA 400 mg/5 mL suspension TAKE 15ML BY MOUTH DAILY NEEDED FOR CONSTIPATION (FOR NO BOWEL MOVEMENT AFTER 3 LANTUS U-100 INSULIN 100 unit/mL injection Give 24 units subq daily at 4 PM or as directed aspirin, enteric coated (ASPIRIN, ENTERIC COATED) 325 mg EC tablet Take 1 tablet by mouth once daily. Take with food. acetaminophen (TYLENOL EXTRA STRENGTH) 500 mg tablet Take 1 tablet by mouth daily at bedtime. furosemide (LASIX) 20 mg tablet Take 1 tablet by mouth once daily. wheat dextrin (BENEFIBER SUGAR FREE, DEXTRIN,) 3 gram/3.8 gram powd Stir 2 teaspoonfuls into 4-8 oz of beverage or soft food daily Cholecalciferol, Vitamin D3, 1,000 unit cap Take 1 capsule by mouth once daily. cloZAPine (CLOZARIL) 100 mg tablet take one tablet at noon, 2 tablets at 3 PM and 3 tablets at Bedtime Insulin Syringe-Needle U-100 (BD INSULIN SYRINGE) 1 mL 28 gauge x 1/2 syrg 10 Units once daily. FLOVENT DISKUS 250 mcg/actuation dsdv INHALE ONE PUFF BY MOUTH TWICE DAILY DIRECTED OMEGA-3 FATTY ACIDS (FISH OIL CONCENTRATE ORAL) Take by mouth once daily. desvenlafaxine ER (PRISTIQ) 50 mg 24 hr tablet Take 50 mg by mouth once daily. Lancets lancets test BS twice daily 2 days a week- dx 250.00 - non-insulin risperiDONE orally disintegrating (RISPERDAL M) 2 mg disintegrating tablet Take 2 mg by mouth once daily. blood sugar diagnostic (FREESTYLE LITE STRIPS) test strip test BS twice daily - dx - 250.00 -insulin Yes clonazePAM (KLONOPIN) 1 mg tablet Take 0.5 mg Bid, 1 mg po at HS insulin needles, DISPOSABLE, (PEN NEEDLE) 31 X 5/16 ndle Use one needle per dose. Once per day. Blood-Glucose Meter (FREESTYLE LITE METER) monitoring kit Used once daily to check blood sugar. 250.00 risperidone (RISPERDAL CONSTA) 50 mg/2 mL INTRAMUSC. injection Inject 2 mL intramuscularly every 2 weeks. COMPOUNDED PRESCRIPTION Please discontinue Tylenol ES 500 mg daily at bedtime STOOL SOFTENER 100 mg capsule TAKE 1 CAPSULE TWICE A DAY (Patient not taking: Reported on 03/16/2018) albuterol HFA (VENTOLIN HFA) 90 mcg/actuation inhaler Inhale 2 Puffs as instructed every 4 hours as needed for Wheezing/Shortness of Breath. (Patient not taking: Reported on 06/08/2018 ) EXAM: General: cooperative and NAD Location: left thumb shows swelling, subungal hematoma. Tender over Distal phalanx with palpation. Laceration over thumb proximal to nailbed: Neurovascular: intact X-ray: comminuted tuft fracture left thumb IMPRESSION: tuft fracture left thumb PLAN: change dressing daily- soak thumb in warm soapy water for 10 minutes before putting on clean dressing use topical antibiotic ointment to laceration site, then cover with clean bandage and place thumb splint overtop. secure splint with tape or coban wrap. Signed Prescriptions Disp Refills amoxicillin-clavulanic acid (AUGMENTIN) 875-125 mg per tablet 20 tablet 0 Sig: Take 1 tablet by mouth twice daily for 10 days. recheck in 1 week DO Cuate Bynum DO PROGRESS Observed: 07/21/2018 Status: COMPLETED Source: [place] 2:33 PM [facility] REPOSITORY HNO ID: [id number] Author: Danette Dominguez RN Service: (none) Author Type: (none) Type: Progress Notes Filed: 07/21/2018 2:55 PM Note Text: AMB ROOMING INTAKE FLOWSHEET DATA Risk Screening Do you have concerns about personal safety or safety in the home?: No Pain Pain Score: 5/10 Pain Location: (left thumb) Description: Aching Duration Amount of Time: 3 Duration Units: Days Frequency: Intermittent Intervention: Medication, Splinting Patient presents with: New Patient: left thumb fx, [facility] 07-18-18 REF: Alejandro Nuno Pt. lives in [facility] and presents with employment case manager [employer], who states they do not provide any health care there, so she is concerned about splint usage. They help with ADL's but no personal care. Splint given yesterday is soiled. Pt. states pain is worse today, and she has been taking Tylenol 325 mg tabs 2 daily which helps some with pain. She was seen in [facility] after smashing left thumb in car door on 07-18-18. She has laceration on top of thumb beneath nailbed. She was not given antibiotics.jose alfredo GONSALES Observed: 07/21/2018 Status: COMPLETED Source: [place] 2:20 PM [facility] REPOSITORY Office Visit (UC) BRITTNEE LE ([id number]) 1965 F Date Time Provider Department 07/21/18 2:20 PM CUATE LARA V During your visit today, we recorded the following information about you: Danette Dominguez RN 07/21/2018 2:55 PM Signed AMB ROOMING INTAKE FLOWSHEET DATA Risk Screening Do you have concerns about personal safety or safety in the home?: No Pain Pain Score: 5/10 Pain Location: (left thumb) Description: Aching Duration Amount of Time: 3 Duration Units: Days Frequency: Intermittent Intervention: Medication, Splinting Patient presents with: New Patient: left thumb fx, [facility] 07-18-18 REF: Alejandro Yaakov Pt. lives in mental health intermediate and presents with employment case manager Emili, who states they do not provide any health care there, so she is concerned about splint usage. They help with ADL's but no personal care. Splint given yesterday is soiled. Pt. states pain is worse today, and she has been taking Tylenol 325 mg tabs 2 daily which helps some with pain. She was seen in [facility] after smashing left thumb in car door on 07-18-18. She has laceration on top of thumb beneath nailbed. She was not given antibiotics.jose alfredo Lara DO 07/21/2018 2:55 PM Signed SUBJECTIVE: Brittnee Le is a 52 year old female who is here for a left thumb injury. It occurred 3 days ago when thumb was shut in a car door. Symptoms include pain, swelling of thumb. She was seen in [place] ED, has tried thumb splint. 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 [facility], pt was on metformin for a while but taken off - pt never told if she had DM or not - Major depressive disorder, recurrent episode, unspecified - Nonspecific elevation of levels of transaminase or lactic acid dehydrogenase (LDH) - LIDA (obstructive sleep apnea) - Pneumonia - Schizophreniform disorder, chronic condition (HCC) - Simple endometrial hyperplasia without atypia mirena IUD 01/2011 PAST SURGICAL HISTORY Procedure Laterality Date - COLONOSCOPY W/BX 12/19/2016 Normal colonoscopy-10 year follow-up - PAST SURGICAL HISTORY OF 1982 corrective jaw surgery - REMOVAL GALLBLADDER 1998 open Current Outpatient Prescriptions on File Prior to Visit: metFORMIN (GLUCOPHAGE) 500 mg tablet TAKE 2 TABLETS BY MOUTH TWICE DAILY WITH MEALS. . pravastatin (PRAVACHOL) 20 mg tablet TAKE 1 TABLET BY MOUTH ONCE DAILY. lubiprostone (AMITIZA) 24 mcg capsule Take 1 capsule by mouth twice daily with meals. MILK OF MAGNESIA 400 mg/5 mL suspension TAKE 15ML BY MOUTH DAILY NEEDED FOR CONSTIPATION (FOR NO BOWEL MOVEMENT AFTER 3 LANTUS U-100 INSULIN 100 unit/mL injection Give 24 units subq daily at 4 PM or as directed aspirin, enteric coated (ASPIRIN, ENTERIC COATED) 325 mg EC tablet Take 1 tablet by mouth once daily. Take with food. acetaminophen (TYLENOL EXTRA STRENGTH) 500 mg tablet Take 1 tablet by mouth daily at bedtime. furosemide (LASIX) 20 mg tablet Take 1 tablet by mouth once daily. wheat dextrin (BENEFIBER SUGAR FREE, DEXTRIN,) 3 gram/3.8 gram powd Stir 2 teaspoonfuls into 4-8 oz of beverage or soft food daily Cholecalciferol, Vitamin D3, 1,000 unit cap Take 1 capsule by mouth once daily. cloZAPine (CLOZARIL) 100 mg tablet take one tablet at noon, 2 tablets at 3 PM and 3 tablets at Bedtime Insulin Syringe-Needle U-100 (BD INSULIN SYRINGE) 1 mL 28 gauge x 1/2 syrg 10 Units once daily. FLOVENT DISKUS 250 mcg/actuation dsdv INHALE ONE PUFF BY MOUTH TWICE DAILY DIRECTED OMEGA-3 FATTY ACIDS (FISH OIL CONCENTRATE ORAL) Take by mouth once daily. desvenlafaxine ER (PRISTIQ) 50 mg 24 hr tablet Take 50 mg by mouth once daily. Lancets lancets test BS twice daily 2 days a week- dx 250.00 - non-insulin risperiDONE orally disintegrating (RISPERDAL M) 2 mg disintegrating tablet Take 2 mg by mouth once daily. blood sugar diagnostic (FREESTYLE LITE STRIPS) test strip test BS twice daily - dx - 250.00 -insulin Yes clonazePAM (KLONOPIN) 1 mg tablet Take 0.5 mg Bid, 1 mg po at HS insulin needles, DISPOSABLE, (PEN NEEDLE) 31 X 02/25 ndle Use one needle per dose. Once per day. Blood-Glucose Meter (FREESTYLE LITE METER) monitoring kit Used once daily to check blood sugar. 250.00 risperidone (RISPERDAL CONSTA) 50 mg/2 mL INTRAMUSC. injection Inject 2 mL intramuscularly every 2 weeks. COMPOUNDED PRESCRIPTION Please discontinue Tylenol ES 500 mg daily at bedtime STOOL SOFTENER 100 mg capsule TAKE 1 CAPSULE TWICE A DAY (Patient not taking: Reported on 03/16/2018) albuterol HFA (VENTOLIN HFA) 90 mcg/actuation inhaler Inhale 2 Puffs as instructed every 4 hours as needed for Wheezing/Shortness of Breath. (Patient not taking: Reported on 06/08/2018 ) EXAM: General: cooperative and NAD Location: left thumb shows swelling, subungal hematoma. Tender over Distal phalanx with palpation. Laceration over thumb proximal to nailbed: Neurovascular: intact X-ray: comminuted tuft fracture left thumb IMPRESSION: tuft fracture left thumb PLAN: change dressing daily- soak thumb in warm soapy water for 10 minutes before putting on clean dressing use topical antibiotic ointment to laceration site, then cover with clean bandage and place thumb splint overtop. secure splint with tape or coban wrap. Signed Prescriptions Disp Refills amoxicillin-clavulanic acid (AUGMENTIN) 875-125 mg per tablet 20 tablet 0 Sig: Take 1 tablet by mouth twice daily for 10 days. recheck in 1 week DO Cuate Bynum DO Referring Provider: Alma NUNO (DIEGO) [[id number]] Allergies As of Date: 07/21/2018 (No Known Allergies) Date Reviewed: 07/21/2018 Reviewed by: Danette Dominguez RN - Fully Assessed Reason for Visit: New Patient [172] Cmt: left thumb fx, [facility] 07-18-18 REF: Alejandro Nuno Primary Visit Diagnosis:Crush injury to thumb, left, subsequent encounter [S67.02XD] Order(s):amoxicillin-clavulanic acid (AUGMENTIN) 875-125 mg per tabletTake 1 tablet by mouth twice daily for 10 days.Disp: 20 tabletRfl: 0 Prescriptions as of 07/21/2018 Sig: GLIPIZIDE 5 MG TABLET TAKE 1 TABLET TWICE A DAY POTASSIUM CHLORIDE ER 20 MEQ * TAKE 1 TABLET BY MOUTH DAILY FERROUS GLUCONATE 324 MG (38 * TAKE 1 TABLET BY MOUTH TWICE * METFORMIN 500 MG TABLET TAKE 2 TABLETS BY MOUTH TWICE* PRAVASTATIN 20 MG TABLET TAKE 1 TABLET BY MOUTH ONCE D* LUBIPROSTONE 24 MCG CAPSULE Take 1 capsule by mouth twice* MILK OF MAGNESIA 400 MG/5 ML * TAKE 15ML BY MOUTH DAILY N* LANTUS U-100 INSULIN 100 UNIT* Give 24 units subq daily at 4* ASPIRIN 325 MG TABLET,DELAYED* Take 1 tablet by mouth once d* ACETAMINOPHEN 500 MG TABLET Take 1 tablet by mouth daily * FUROSEMIDE 20 MG TABLET Take 1 tablet by mouth once d* WHEAT DEXTRIN 3 GRAM/3.8 GRAM* Stir 2 teaspoonfuls into 4-8 * CHOLECALCIFEROL (VITAMIN D3) * Take 1 capsule by mouth once * CLOZAPINE 100 MG TABLET take one tablet at noon, 2 ta* INSULIN SYRINGE-NEEDLE U-100 * 10 Units once daily. FLOVENT DISKUS 250 MCG/ACTUAT* INHALE ONE PUFF BY MOUTH TWIC* FISH OIL CONCENTRATE ORAL Take by mouth once daily. DESVENLAFAXINE SUCCINATE ER 5* Take 50 mg by mouth once ziggy* LANCETS test BS twice daily 2 days a * RISPERIDONE 2 MG DISINTEGRATI* Take 2 mg by mouth once daily. BLOOD SUGAR DIAGNOSTIC STRIPS test BS twice daily - dx - 25* CLONAZEPAM 1 MG TABLET Take 0.5 mg Bid, 1 mg po at HS PEN NEEDLE, DIABETIC 31 GAUGE* Use one needle per dose. Once* BLOOD-GLUCOSE METER KIT Used once daily to check bloo* * RISPERIDONE MICROSPHERES 50 M* Inject 2 mL intramuscularly e* AMOXICILLIN 875 MG-POTASSIUM * Take 1 tablet by mouth twice * X GLIPIZIDE 5 MG TABLET TAKE 1 TABLET TWICE A DAY X POTASSIUM CHLORIDE ER 20 MEQ * TAKE 1 TABLET BY MOUTH DAILY X FERROUS GLUCONATE 324 MG (36 * Take 1 tablet by mouth twice * COMPOUNDED PRESCRIPTION Please discontinue Tylenol ES* STOOL SOFTENER 100 MG CAPSULE TAKE 1 CAPSULE TWICE A DAY Patient not taking: Reported on 03/16/2018 ALBUTEROL SULFATE HFA 90 MCG/* Inhale 2 Puffs as instructed * Patient not taking: Reported on 06/08/2018 Problem List As Of Date 07/21/2018 Noted Resolved Schizophreniform disorder, chronic condition (H* Priority: Mild More... Other abnormal glucose [R73.09] 04/29/2018 Priority: A More... DM w/o Complication Type II [E11.9] INVALID FOR*02/22/2014 Priority: Moderate Gastritis [K29.70] INVALID FOR* Routine general medical examination at a health*INVALID FOR*11/26/2011 Class: Chronic More... Routine gynecological examination [Z01.419] INVALID FOR*11/26/2011 Class: Chronic More... Vitamin D deficiency [E55.9] INVALID FOR* Priority: A More... Liver Function Test Abnormality [R94.5] INVALID FOR* More... 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 Encounter for screening for malignant neoplasm *INVALID FOR* Postmenopausal bleeding [N95.0] INVALID FOR* More... Acute diastolic CHF (congestive heart failure) *INVALID FOR* More... Obesity, Class II, BMI 35-39.9 [E66.9] INVALID FOR* Prescriptions ordered this encounter Disp Refills Start End AMOXICILLIN 875 MG-POTASSIUM CLAVULA* 20 t* 0 07/21/2018 07/31/2018 Route: ORAL Sig: Take 1 tablet by mouth twice daily for 10 days. Encounter Status:Closed by CUTAE LARA DO, V on 07/21/18 PROGRESS Observed: 07/20/2018 Status: COMPLETED Source: [place] 1:47 PM [facility] REPOSITORY O ID: [id number] Author: Alma Orellana (Pa-C) Yaakov Service: (none) Author Type: Physician Shoe Reconditioner Type: Progress Notes Filed: 07/20/2018 7:53 PM Note Text: 52 year old female with c/o left thumb fracture: caught in door of vehicle, pulled finger out. Went to ED 07/28/18. Xrays reviewed personally: comminuted fracture distal phalanx with mild displacement. 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, pt was on metformin for a while but taken off - pt never told if she had DM or not - Major depressive disorder, recurrent episode, unspecified - Nonspecific elevation of levels of transaminase or lactic acid dehydrogenase (LDH) - LIDA (obstructive sleep apnea) - Pneumonia - Schizophreniform disorder, chronic condition (HCC) - Simple endometrial hyperplasia without atypia mirena IUD 01/2011 PAST SURGICAL HISTORY Procedure Laterality Date - COLONOSCOPY W/BX 12/19/2016 Normal colonoscopy-10 year follow-up - PAST SURGICAL HISTORY OF 1982 corrective jaw surgery - REMOVAL GALLBLADDER 1998 open Social History Marital status: Single Spouse name: Years of education: 14 Number of children: 0 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 Social History Main Topics Smoking status: Former Smoker Packs/day: 2.00 Years: 20.00 Types: Cigarettes Quit date: 01/11/2014 Smokeless tobacco: Never Used Alcohol use: No Drug use: No Comment: marinarcisoan- Teen yrs, but not now Sexual activity: No ACTIVE PROBLEM LIST Schizophreniform Disorder, Chronic Condition (Hcc) Gastritis Vitamin D Deficiency Liver Function Test Abnormality Hyperlipidemia Nonspecific Elevation of Levels of Transaminase Or Lactic Acid Dehydrogenase (Ldh) Copd (Chronic Obstructive Pulmonary Disease) (Hcc) Water Intoxication Type 2 Diabetes Mellitus With Diabetic Nephropathy (Hcc) Constipation Lida (Obstructive Sleep Apnea) Encounter for Screening for Malignant Neoplasm of Colon Postmenopausal Bleeding Acute Diastolic Chf (Congestive Heart Failure) (Hcc) Obesity, Class II, Bmi 35-39.9 Current Outpatient Prescriptions: metFORMIN (GLUCOPHAGE) 500 mg tablet TAKE 2 TABLETS BY MOUTH TWICE DAILY WITH MEALS. . Disp: 112 tablet Rfl: 5 pravastatin (PRAVACHOL) 20 mg tablet TAKE 1 TABLET BY MOUTH ONCE DAILY. Disp: 28 tablet Rfl: 5 glipiZIDE (GLUCOTROL) 5 mg tablet TAKE 1 TABLET TWICE A DAY Disp: 56 tablet Rfl: 3 lubiprostone (AMITIZA) 24 mcg capsule Take 1 capsule by mouth twice daily with meals. Disp: 60 capsule Rfl: 11 MILK OF MAGNESIA 400 mg/5 mL suspension TAKE 15ML BY MOUTH DAILY NEEDED FOR CONSTIPATION (FOR NO BOWEL MOVEMENT AFTER 3 Disp: 360 mL Rfl: 5 potassium chloride ER (K-DUR, KLOR-CON) 20 mEq tablet TAKE 1 TABLET BY MOUTH DAILY Disp: 30 tablet Rfl: 5 Ferrous Gluconate 324 mg (36 mg iron) tab Take 1 tablet by mouth twice daily with meals. Disp: 60 tablet Rfl: 5 aspirin, enteric coated (ASPIRIN, ENTERIC COATED) 325 mg EC tablet Take 1 tablet by mouth once daily. Take with food. Disp: 30 tablet Rfl: 11 acetaminophen (TYLENOL EXTRA STRENGTH) 500 mg tablet Take 1 tablet by mouth daily at bedtime. Disp: 30 tablet Rfl: 11 furosemide (LASIX) 20 mg tablet Take 1 tablet by mouth once daily. Disp: 90 tablet Rfl: 3 wheat dextrin (BENEFIBER SUGAR FREE, DEXTRIN,) 3 gram/3.8 gram powd Stir 2 teaspoonfuls into 4-8 oz of beverage or soft food daily Disp: Rfl: Cholecalciferol, Vitamin D3, 1,000 unit cap Take 1 capsule by mouth once daily. Disp: Rfl: cloZAPine (CLOZARIL) 100 mg tablet take one tablet at noon, 2 tablets at 3 PM and 3 tablets at Bedtime Disp: Rfl: 0 FLOVENT DISKUS 250 mcg/actuation dsdv INHALE ONE PUFF BY MOUTH TWICE DAILY DIRECTED Disp: 1 Inhaler Rfl: 12 OMEGA-3 FATTY ACIDS (FISH OIL CONCENTRATE ORAL) Take by mouth once daily. Disp: Rfl: desvenlafaxine ER (PRISTIQ) 50 mg 24 hr tablet Take 50 mg by mouth once daily. Disp: Rfl: risperiDONE orally disintegrating (RISPERDAL M) 2 mg disintegrating tablet Take 2 mg by mouth once daily. Disp: Rfl: clonazePAM (KLONOPIN) 1 mg tablet Take 0.5 mg Bid, 1 mg po at HS Disp: Rfl: risperidone (RISPERDAL CONSTA) 50 mg/2 mL INTRAMUSC. injection Inject 2 mL intramuscularly every 2 weeks. Disp: Rfl: 0 LANTUS U-100 INSULIN 100 unit/mL injection Give 24 units subq daily at 4 PM or as directed Disp: 10 mL Rfl: 11 COMPOUNDED PRESCRIPTION Please discontinue Tylenol ES 500 mg daily at bedtime Disp: Rfl: STOOL SOFTENER 100 mg capsule TAKE 1 CAPSULE TWICE A DAY (Patient not taking: Reported on 03/16/2018) Disp: 56 capsule Rfl: 3 albuterol HFA (VENTOLIN HFA) 90 mcg/actuation inhaler Inhale 2 Puffs as instructed every 4 hours as needed for Wheezing/Shortness of Breath. (Patient not taking: Reported on 06/08/2018 ) Disp: 1 Inhaler Rfl: 0 Insulin Syringe-Needle U-100 (BD INSULIN SYRINGE) 1 mL 28 gauge x 1/2 syrg 10 Units once daily. Disp: 100 Syringe Rfl: 10 Lancets lancets test BS twice daily 2 days a week- dx 250.00 - non-insulin Disp: 100 Each Rfl: 6 blood sugar diagnostic (FREESTYLE LITE STRIPS) test strip test BS twice daily - dx - 250.00 -insulin Yes Disp: 100 Strip Rfl: 6 insulin needles, DISPOSABLE, (PEN NEEDLE) 31 X 5/16 ndle Use one needle per dose. Once per day. Disp: 100 Each Rfl: 11 Blood-Glucose Meter (FREESTYLE LITE METER) monitoring kit Used once daily to check blood sugar. 250.00 Disp: 1 Each Rfl: 0 No current facility-administered medications for this visit. HPV EVERY 5 YEARS due on 10/03/2014 EXAM: BP 110/72 Pulse 76 Temp 36.2 ?C (97.1 ?F) (Tympanic) Resp 16 Wt 86.2 kg (190 lb) LMP 09/12/2017 BMI 35.90 kg/m? Pleasant overweight adult female in no acute distress. Alert and oriented all spheres. Normal affect and cognition. Speech normal. No deficits to learning or comprehension. Skin warm, dry, pink to lips and nailbeds. Normal turgor. Respirations regular and unlabored. Extrem: no clubbing, cyanosis, edema. Extremities are warm and pink with prompt capillary refill. Left thumb with moderate swelling, purplish bruising, disruption cuticle with oozing serous drainage. Very tender. Had to soak dressing off. ASSESSMENT/PLAN: 1. Closed displaced fracture of distal phalanx of left thumb with routine healing, subsequent encounter - ICD9: V54.19, ICD10: S62.522D Cage splint applied after cleansing with saline. Instructions for care reviewed. She declines pain medication. - CONSULT TO ORTHOPAEDICS DIEGO AndradeOV Observed: 07/20/2018 Status: COMPLETED Source: [place] 11:40 AM [facility] REPOSITORY Office Visit (FAMPWS) BRITTNEE LE ([id number]) 1965 F Date Time Provider Department 07/20/18 11:40 AM Alma NUNO) FAMPWS During your visit today, we recorded the following information about you: Temperature Pulse Respiration Blood pressure 97.1 degrees 76/minute 16/minute 110/72 Weight 86.2 kg M Esteban Nuno PA-C 07/20/2018 7:53 PM Signed 52 year old female with c/o left thumb fracture: caught in door of vehicle, pulled finger out. Went to ED 07/28/18. Xrays reviewed personally: comminuted fracture distal phalanx with mild displacement. 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, pt was on metformin for a while but taken off - pt never told if she had DM or not - Major depressive disorder, recurrent episode, unspecified - Nonspecific elevation of levels of transaminase or lactic acid dehydrogenase (LDH) - LIDA (obstructive sleep apnea) - Pneumonia - Schizophreniform disorder, chronic condition (HCC) - Simple endometrial hyperplasia without atypia mirena IUD 01/2011 PAST SURGICAL HISTORY Procedure Laterality Date - COLONOSCOPY W/BX 12/19/2016 Normal colonoscopy-10 year follow-up - PAST SURGICAL HISTORY OF 1982 corrective jaw surgery - REMOVAL GALLBLADDER 1998 open Social History Marital status: Single Spouse name: Years of education: 14 Number of children: 0 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 Social History Main Topics Smoking status: Former Smoker Packs/day: 2.00 Years: 20.00 Types: Cigarettes Quit date: 01/11/2014 Smokeless tobacco: Never Used Alcohol use: No Drug use: No Comment: jeremy- Teen yrs, but not now Sexual activity: No ACTIVE PROBLEM LIST Schizophreniform Disorder, Chronic Condition (Hcc) Gastritis Vitamin D Deficiency Liver Function Test Abnormality Hyperlipidemia Nonspecific Elevation of Levels of Transaminase Or Lactic Acid Dehydrogenase (Ldh) Copd (Chronic Obstructive Pulmonary Disease) (Hcc) Water Intoxication Type 2 Diabetes Mellitus With Diabetic Nephropathy (Hcc) Constipation Lida (Obstructive Sleep Apnea) Encounter for Screening for Malignant Neoplasm of Colon Postmenopausal Bleeding Acute Diastolic Chf (Congestive Heart Failure) (Hcc) Obesity, Class II, Bmi 35-39.9 Current Outpatient Prescriptions: metFORMIN (GLUCOPHAGE) 500 mg tablet TAKE 2 TABLETS BY MOUTH TWICE DAILY WITH MEALS. . Disp: 112 tablet Rfl: 5 pravastatin (PRAVACHOL) 20 mg tablet TAKE 1 TABLET BY MOUTH ONCE DAILY. Disp: 28 tablet Rfl: 5 glipiZIDE (GLUCOTROL) 5 mg tablet TAKE 1 TABLET TWICE A DAY Disp: 56 tablet Rfl: 3 lubiprostone (AMITIZA) 24 mcg capsule Take 1 capsule by mouth twice daily with meals. Disp: 60 capsule Rfl: 11 MILK OF MAGNESIA 400 mg/5 mL suspension TAKE 15ML BY MOUTH DAILY NEEDED FOR CONSTIPATION (FOR NO BOWEL MOVEMENT AFTER 3 Disp: 360 mL Rfl: 5 potassium chloride ER (K-DUR, KLOR-CON) 20 mEq tablet TAKE 1 TABLET BY MOUTH DAILY Disp: 30 tablet Rfl: 5 Ferrous Gluconate 324 mg (36 mg iron) tab Take 1 tablet by mouth twice daily with meals. Disp: 60 tablet Rfl: 5 aspirin, enteric coated (ASPIRIN, ENTERIC COATED) 325 mg EC tablet Take 1 tablet by mouth once daily. Take with food. Disp: 30 tablet Rfl: 11 acetaminophen (TYLENOL EXTRA STRENGTH) 500 mg tablet Take 1 tablet by mouth daily at bedtime. Disp: 30 tablet Rfl: 11 furosemide (LASIX) 20 mg tablet Take 1 tablet by mouth once daily. Disp: 90 tablet Rfl: 3 wheat dextrin (BENEFIBER SUGAR FREE, DEXTRIN,) 3 gram/3.8 gram powd Stir 2 teaspoonfuls into 4-8 oz of beverage or soft food daily Disp: Rfl: Cholecalciferol, Vitamin D3, 1,000 unit cap Take 1 capsule by mouth once daily. Disp: Rfl: cloZAPine (CLOZARIL) 100 mg tablet take one tablet at noon, 2 tablets at 3 PM and 3 tablets at Bedtime Disp: Rfl: 0 FLOVENT DISKUS 250 mcg/actuation dsdv INHALE ONE PUFF BY MOUTH TWICE DAILY DIRECTED Disp: 1 Inhaler Rfl: 12 OMEGA-3 FATTY ACIDS (FISH OIL CONCENTRATE ORAL) Take by mouth once daily. Disp: Rfl: desvenlafaxine ER (PRISTIQ) 50 mg 24 hr tablet Take 50 mg by mouth once daily. Disp: Rfl: risperiDONE orally disintegrating (RISPERDAL M) 2 mg disintegrating tablet Take 2 mg by mouth once daily. Disp: Rfl: clonazePAM (KLONOPIN) 1 mg tablet Take 0.5 mg Bid, 1 mg po at HS Disp: Rfl: risperidone (RISPERDAL CONSTA) 50 mg/2 mL INTRAMUSC. injection Inject 2 mL intramuscularly every 2 weeks. Disp: Rfl: 0 LANTUS U-100 INSULIN 100 unit/mL injection Give 24 units subq daily at 4 PM or as directed Disp: 10 mL Rfl: 11 COMPOUNDED PRESCRIPTION Please discontinue Tylenol ES 500 mg daily at bedtime Disp: Rfl: STOOL SOFTENER 100 mg capsule TAKE 1 CAPSULE TWICE A DAY (Patient not taking: Reported on 03/16/2018) Disp: 56 capsule Rfl: 3 albuterol HFA (VENTOLIN HFA) 90 mcg/actuation inhaler Inhale 2 Puffs as instructed every 4 hours as needed for Wheezing/Shortness of Breath. (Patient not taking: Reported on 06/08/2018 ) Disp: 1 Inhaler Rfl: 0 Insulin Syringe-Needle U-100 (BD INSULIN SYRINGE) 1 mL 28 gauge x 1/2 syrg 10 Units once daily. Disp: 100 Syringe Rfl: 10 Lancets lancets test BS twice daily 2 days a week- dx 250.00 - non-insulin Disp: 100 Each Rfl: 6 blood sugar diagnostic (FREESTYLE LITE STRIPS) test strip test BS twice daily - dx - 250.00 -insulin Yes Disp: 100 Strip Rfl: 6 insulin needles, DISPOSABLE, (PEN NEEDLE) 31 X 5/16 ndle Use one needle per dose. Once per day. Disp: 100 Each Rfl: 11 Blood-Glucose Meter (FREESTYLE LITE METER) monitoring kit Used once daily to check blood sugar. 250.00 Disp: 1 Each Rfl: 0 No current facility-administered medications for this visit. HPV EVERY 5 YEARS due on 10/03/2014 EXAM: BP 110/72 Pulse 76 Temp 36.2 ?C (97.1 ?F) (Tympanic) Resp 16 Wt 86.2 kg (190 lb) LMP 09/12/2017 BMI 35.90 kg/m? Pleasant overweight adult female in no acute distress. Alert and oriented all spheres. Normal affect and cognition. Speech normal. No deficits to learning or comprehension. Skin warm, dry, pink to lips and nailbeds. Normal turgor. Respirations regular and unlabored. Extrem: no clubbing, cyanosis, edema. Extremities are warm and pink with prompt capillary refill. Left thumb with moderate swelling, purplish bruising, disruption cuticle with oozing serous drainage. Very tender. Had to soak dressing off. ASSESSMENT/PLAN: 1. Closed displaced fracture of distal phalanx of left thumb with routine healing, subsequent encounter - ICD9: V54.19, ICD10: S62.522D Cage splint applied after cleansing with saline. Instructions for care reviewed. She declines pain medication. - CONSULT TO ORTHOPAEDICS DIEGO Andrade PA-C 07/20/2018 1:53 PM Signed Splint as shown left thumb. Keep the area clean and dry. Rest the joint. Elevate as often as possible to reduce swelling and throbbing. Leave splint on as much as possible. If any changes in color in fingers (blue or black), abnormal sensations, or increasing pain which is not resolved with adjusting CESIA wraps or the splint, come in immediately or go to the emergency room to check. You may use Tylenol, Ibuprofen, or other analgesics over the counter as needed for pain. Referring Provider: SELF [200] Allergies As of Date: 07/20/2018 (No Known Allergies) Date Reviewed: 07/20/2018 Reviewed by: Delfina Camacho LPN - Fully Assessed Reason for Visit: ER F/U [41] Cmt: [facility] 07/18/18 for fracture to left thumb. Smushed by a care door. Primary Visit Diagnosis:Closed displaced fracture of distal phalanx of left thumb with routine healing, subsequent encounter [S62.522D] Order(s):CONSULT TO ORTHOPAEDICS [9026] Order #: [id number]: 1 Prescriptions as of 07/20/2018 Sig: METFORMIN 500 MG TABLET TAKE 2 TABLETS BY MOUTH TWICE* PRAVASTATIN 20 MG TABLET TAKE 1 TABLET BY MOUTH ONCE D* GLIPIZIDE 5 MG TABLET TAKE 1 TABLET TWICE A DAY LUBIPROSTONE 24 MCG CAPSULE Take 1 capsule by mouth twice* MILK OF MAGNESIA 400 MG/5 ML * TAKE 15ML BY MOUTH DAILY N* POTASSIUM CHLORIDE ER 20 MEQ * TAKE 1 TABLET BY MOUTH DAILY FERROUS GLUCONATE 324 MG (36 * Take 1 tablet by mouth twice * ASPIRIN 325 MG TABLET,DELAYED* Take 1 tablet by mouth once d* ACETAMINOPHEN 500 MG TABLET Take 1 tablet by mouth daily * FUROSEMIDE 20 MG TABLET Take 1 tablet by mouth once d* WHEAT DEXTRIN 3 GRAM/3.8 GRAM* Stir 2 teaspoonfuls into 4-8 * CHOLECALCIFEROL (VITAMIN D3) * Take 1 capsule by mouth once * CLOZAPINE 100 MG TABLET take one tablet at noon, 2 ta* FLOVENT DISKUS 250 MCG/ACTUAT* INHALE ONE PUFF BY MOUTH TWIC* FISH OIL CONCENTRATE ORAL Take by mouth once daily. DESVENLAFAXINE SUCCINATE ER 5* Take 50 mg by mouth once ziggy* RISPERIDONE 2 MG DISINTEGRATI* Take 2 mg by mouth once daily. CLONAZEPAM 1 MG TABLET Take 0.5 mg Bid, 1 mg po at HS * RISPERIDONE MICROSPHERES 50 M* Inject 2 mL intramuscularly e* LANTUS U-100 INSULIN 100 UNIT* Give 24 units subq daily at 4* COMPOUNDED PRESCRIPTION Please discontinue Tylenol ES* STOOL SOFTENER 100 MG CAPSULE TAKE 1 CAPSULE TWICE A DAY Patient not taking: Reported on 03/16/2018 ALBUTEROL SULFATE HFA 90 MCG/* Inhale 2 Puffs as instructed * Patient not taking: Reported on 06/08/2018 INSULIN SYRINGE-NEEDLE U-100 * 10 Units once daily. LANCETS test BS twice daily 2 days a * BLOOD SUGAR DIAGNOSTIC STRIPS test BS twice daily - dx - 25* PEN NEEDLE, DIABETIC 31 GAUGE* Use one needle per dose. Once* BLOOD-GLUCOSE METER KIT Used once daily to check bloo* Problem List As Of Date 07/20/2018 Noted Resolved Schizophreniform disorder, chronic condition (H* Priority: Mild More... Other abnormal glucose [R73.09] 04/29/2018 Priority: A More... DM w/o Complication Type II [E11.9] INVALID FOR*02/22/2014 Priority: Moderate Gastritis [K29.70] INVALID FOR* Routine general medical examination at a health*INVALID FOR*11/26/2011 Class: Chronic More... Routine gynecological examination [Z01.419] INVALID FOR*11/26/2011 Class: Chronic More... Vitamin D deficiency [E55.9] INVALID FOR* Priority: A More... Liver Function Test Abnormality [R94.5] INVALID FOR* More... 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 Encounter for screening for malignant neoplasm *INVALID FOR* Postmenopausal bleeding [N95.0] INVALID FOR* More... Acute diastolic CHF (congestive heart failure) *INVALID FOR* More... Obesity, Class II, BMI 35-39.9 [E66.9] INVALID FOR* Other instructions from your clinician: Splint as shown left thumb. Keep the area clean and dry. Rest the joint. Elevate as often as possible to reduce swelling and throbbing. Leave splint on as much as possible. If any changes in color in fingers (blue or black), abnormal sensations, or increasing pain which is not resolved with adjusting CESIA wraps or the splint, come in immediately or go to the emergency room to check. You may use Tylenol, Ibuprofen, or other analgesics over the counter as needed for pain. Encounter Status:Closed by Alma NUNO PA-C on 07/20/18 DISCHARGE INSTRUCTION Observed: 07/18/2018 Status: F Source: [place] 7:48 PM [facility] REPOSITORY [facility] Medical Records Department [address] [place] [id number] Discharge Instruction 07/18/181947 MR#: [id number] Acct: [id number] Name: BRITTNEE LE Rep #: [id number] : 1965 52 From: Dave Zimmer MD PCP: Boris Jones MD Status: REG ER ED Disposition - Plan for ED Patient: Disposition: Home or Assisted Living Chief Complaint: Laceration Instructions: ED Fx Finger Closed Referrals: Boris Jones MD [Primary Care Provider] - What to do if you have Problems For any increased pain, shortness of breath, bleeding, nausea or vomiting, chest pain, or any unexpected problems, contact your Primary Care Provider. Call [facility] ([phone]) or report to the closest Emergency Room. Call 911 if necessary. 07/18/181947 <Electronically signed by Dave Zimmer MD> Date Dave Zimmer MD Cosigner Signature (If Indicated): Date CC: Boris Jones MD HAND MIN 3 VIEWS Observed: 07/18/2018 Status: F Source: [place] 7:13 PM [facility] REPOSITORY [facility] Imaging Services [address] [place] [address] Hand Min 3 Views MR#: [id number] Acct: [id number] Name: BRITTNEE LE Rep #: [id number] : 1965 F 52 From: Buck Jackson MD PCP: Boris Jones MD Status: REG ER Study: Hand Min 3 Views Date of Exam: 07/18/18 Exam# [id number] Ordering Dr: Dave Zimmer MD STUDY: X-RAY - LEFT HAND REASON FOR EXAM: Female, 52 years old. Thumb injury. Finger smashed in car door. TECHNIQUE: Three view(s) of the hand. COMPARISON: None. FINDINGS: Bones: There is a minimally displaced comminuted fracture of the distal phalanx of the fifth digit. Joints: There are osteoarthritic changes. Soft tissues: The soft tissues are unremarkable. Foreign body: None RAD/Hand Min 3 Views IMPRESSION: First distal phalangeal fracture as described. Electronically Signed: Buck Jackson MD at 19:35 EDT , Service support , CC: Dave Zimmer MD; Boris Jones MD 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: Signed PROGRESS Observed: 07/17/2018 Status: COMPLETED Source: [place] 11:12 AM [facility] REPOSITORY HNO ID: [id number] Author: Asia (Rn) Indra Service: (none) Author Type: Registered Nurse Type: Progress Notes Filed: 07/17/2018 11:14 AM Note Text: PRIMARY CARE COORDINATION IN OFFICE VISIT WITH PCP Patient has been identified by name and date of . PCP Assessment/Plan: Reviewed PCP plan with patient using Te[employer] Discussed anxiety vs sleepiness from clonopin and pt may have to live with side effects if she becomes so anxious when she is off the medication PCC Plan of Care: Patient concerns: Pt worried about her sleepiness from the clonopin. Next Office Visit: Visit date not found Plan For Next Call: One month Asia Burrell RN July 17, 2018 CBC AND DIFFERENTIAL Collected: 07/17/2018 Status: F Source: [place] 11:08 AM [facility] [place] REPOSITORY TYPE CODE TESTS RESULT OUT OF REFERENCE UNITS RANGE LAB WBC 3.70-11.00 k/uL WBC High 11.28 LAB RBC 3.90-5.20 m/uL RBC 4.79 LAB HGB 11.5-15.5 g/dL Hemoglobin 14.0 LAB HCT 36.0-46.0 % Hematocrit 43.1 LAB MCV 80.0-100.0 fL MCV 90.0 LAB MCH 26.0-34.0 pG MCH 29.2 LAB MCHC 30.5-36.0 g/dL MCHC 32.5 LAB RDWCV 11.5-15.0 % RDW-CV 14.2 LAB PLTCT 150-400 k/uL Platelet Count 187 LAB MPV 9.0-12.7 fL MPV 11.9 LAB ANEUT % Neut% 67.4 LAB AANEUT 1.45-7.50 k/uL Abs Neut High 7.61 LAB ALYMP % Lymph% 26.3 LAB AALYMP 1.00-4.00 k/uL Abs Lymph 2.97 LAB AMONO % [place]% 5.9 LAB AAMONO <0.87 k/uL Abs [place] 0.66 LAB AEOS % Eosin% 0.0 LAB AAEOS <0.46 k/uL Abs Eosin <0.03 LAB ABASO % Baso% 0.4 LAB AABASO <0.11 k/uL Abs Baso 0.04 LAB AUNRBC 0 /100 WBC NRBCs 0.0 LAB ABNRBC <0.01 k/uL Absolute nRBC <0.01 LAB DTYP DTYPE Auto Diff Performed By: #### CBCDIF, HBA1C, BMP #### [facility] [employer] [address] [place], [place] [address] HEMOGLOBIN A1C Collected: 07/17/2018 Status: F Source: [place] 11:08 AM [facility] REPOSITORY TYPE CODE TESTS RESULT OUT OF REFERENCE UNITS RANGE LAB HGBA1C 4.3-5.6 % High Hemoglobin A1c 7.2 LAB HBA0 mg/dL Est. Average Glucose 160 Result Comment: eAG: (Estimated average glucose) is a calculated value from HgbA1c and is admitting representative of the average blood glucose level in the last 2-3 month period. Performed By: #### CBCDIF, HBA1C, BMP #### [facility] [employer] [address] [place], [place] [address] BASIC METABOLIC PANL Collected: 07/17/2018 Status: F Source: [place] 11:08 AM [facility] REPOSITORY TYPE CODE TESTS RESULT OUT OF REFERENCE UNITS RANGE LAB GLU 74-99 mg/dL Glucose 81 Result Comment: The [place] [employer] (ADA) provides guidance for cutoff values for fasting glucose and random glucose. The ADA defines fasting as no caloric intake for at least 8 hours. Fas ting plasma glucose results between 100 to 125 mg/dL indicate increased risk for diabetes (prediabetes). Fasting plasma glucose results greater than or equal to 126 mg/dL meet the criteria for diagnosis of diabetes. In the absence of unequivocal hyperglycemia, results should be confirmed by repeat testing. In a patient with classic symptoms of hyperglycemia or hyperglycemic crisis, random plasma glucose results greater than or equal to 200 mg/dL meet the criteria for diagnosis of diabetes. Reference: Standards of Medical Care in Diabetes 2016, [place] [employer]. Diabetes Care. 2016.39(Suppl 1). LAB BUN 7-21 mg/dL BUN 8 LAB CRET 0.58-0.96 mg/dL Creatinine Low 0.51 LAB NA 136-144 mmol/L Sodium 136 LAB K 3.7-5.1 mmol/L Potassium 4.7 LAB CL 97-105 mmol/L Chloride Low 96 LAB CO2 22-30 mmol/L CO2 22 LAB AGAP 9-18 mmol/L Anion Gap 18 LAB CA 8.5-10.2 mg/dL Calcium, Total 9.8 LAB GFRAA eGFR- Amer. >60 LAB GFRNAA . eGFR-All Other Races >60 Result Comment: eGFR (Estimated GFR) Units of measure: mL/min/1.73 meters squared eGFR is derived from the reexpressed MDRD Study equation using the following parameters: serum creatinine, age, gender and race. The creatinine assay has been calibrated to be traceable to IDMS. An eGFR <60 mL/min/1.73m2 for >3 months is consistent with chronic kidney disease. Refer to KDOQI guidelines for clinical interpretation. In patients with unstable renal function, e.g. those with acute kidney injury, the eGFR may not accurately reflect actual GFR. Performed By: #### CBCDIF, HBA1C, BMP #### [facility] [address] [place] [id number] PROGRESS Observed: 07/17/2018 Status: COMPLETED Source: [place] 10:16 AM [facility] [place] REPOSITORY HNO ID: [id number] Author: Boris Jones Service: (none) Author Type: Physician Type: Progress Notes Filed: 07/17/2018 4:57 PM Note Text: Patient presents with: Fatigue Dizziness Imm/Inj: Flu Vaccine HPI: Patient presents today for office visit for dizziness. Nursing Notes: Maria A Saldivar LPN 07/17/2018 10:00 AM Signed Has been dizzy for a couple of weeks. Happens mostly when lying down. Has noticed while at PT when she sits up that is feeling the dizziness and also at home in bed when rolls to right side. Fatigue for a couple of weeks also. States that around noon everyday gets really tired. This happens after she takes her clonazepam. Have tried to adjust dosing and that is unsuccessful. Denies changes or problems with her sleep. happens later on in the day. The room actually spins. No nausea. No headache No speech change. No focal numbness or weakness. No chest pain No shortness of breath. No edema. No palpitations. No fall or syncope. Worsened on laying down and turning side to side. Sugars are occasionally high. Rare hypoglycemic spells. She has not checked her sugar when she gets lightheaded. Explained she will need to talk with psychiatry regarding the klonopin. MEDICATIONS: Current Outpatient Prescriptions: metFORMIN (GLUCOPHAGE) 500 mg tablet TAKE 2 TABLETS BY MOUTH TWICE DAILY WITH MEALS. . pravastatin (PRAVACHOL) 20 mg tablet TAKE 1 TABLET BY MOUTH ONCE DAILY. glipiZIDE (GLUCOTROL) 5 mg tablet TAKE 1 TABLET TWICE A DAY lubiprostone (AMITIZA) 24 mcg capsule Take 1 capsule by mouth twice daily with meals. MILK OF MAGNESIA 400 mg/5 mL suspension TAKE 15ML BY MOUTH DAILY NEEDED FOR CONSTIPATION (FOR NO BOWEL MOVEMENT AFTER 3 LANTUS U-100 INSULIN 100 unit/mL injection Give 24 units subq daily at 4 PM or as directed potassium chloride ER (K-DUR, KLOR-CON) 20 mEq tablet TAKE 1 TABLET BY MOUTH DAILY Ferrous Gluconate 324 mg (36 mg iron) tab Take 1 tablet by mouth twice daily with meals. COMPOUNDED PRESCRIPTION Please discontinue Tylenol ES 500 mg daily at bedtime STOOL SOFTENER 100 mg capsule TAKE 1 CAPSULE TWICE A DAY (Patient not taking: Reported on 03/16/2018) aspirin, enteric coated (ASPIRIN, ENTERIC COATED) 325 mg EC tablet Take 1 tablet by mouth once daily. Take with food. acetaminophen (TYLENOL EXTRA STRENGTH) 500 mg tablet Take 1 tablet by mouth daily at bedtime. (Patient not taking: Reported on 06/08/2018 ) furosemide (LASIX) 20 mg tablet Take 1 tablet by mouth once daily. wheat dextrin (BENEFIBER SUGAR FREE, DEXTRIN,) 3 gram/3.8 gram powd Stir 2 teaspoonfuls into 4-8 oz of beverage or soft food daily Cholecalciferol, Vitamin D3, 1,000 unit cap Take 1 capsule by mouth once daily. cloZAPine (CLOZARIL) 100 mg tablet take one tablet at noon, 2 tablets at 3 PM and 3 tablets at Bedtime (Patient not taking: Reported on 07/02/2018 ) albuterol HFA (VENTOLIN HFA) 90 mcg/actuation inhaler Inhale 2 Puffs as instructed every 4 hours as needed for Wheezing/Shortness of Breath. (Patient not taking: Reported on 06/08/2018 ) Insulin Syringe-Needle U-100 (BD INSULIN SYRINGE) 1 mL 28 gauge x 1/2 syrg 10 Units once daily. FLOVENT DISKUS 250 mcg/actuation dsdv INHALE ONE PUFF BY MOUTH TWICE DAILY DIRECTED OMEGA-3 FATTY ACIDS (FISH OIL CONCENTRATE ORAL) Take by mouth once daily. desvenlafaxine ER (PRISTIQ) 50 mg 24 hr tablet Take 50 mg by mouth once daily. Lancets lancets test BS twice daily 2 days a week- dx 250.00 - non-insulin risperiDONE orally disintegrating (RISPERDAL M) 2 mg disintegrating tablet Take 2 mg by mouth once daily. blood sugar diagnostic (FREESTYLE LITE STRIPS) test strip test BS twice daily - dx - 250.00 -insulin Yes clonazePAM (KLONOPIN) 1 mg tablet Take 0.5 mg Bid, 1 mg po at HS insulin needles, DISPOSABLE, (PEN NEEDLE) 31 X 5/16 ndle Use one needle per dose. Once per day. Blood-Glucose Meter (FREESTYLE LITE METER) monitoring kit Used once daily to check blood sugar. 250.00 risperidone (RISPERDAL CONSTA) 50 mg/2 mL INTRAMUSC. injection Inject 2 mL intramuscularly every 2 weeks. No current facility-administered medications for this visit. 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, pt was on metformin for a while but taken off - pt never told if she had DM or not - Major depressive disorder, recurrent episode, unspecified - Nonspecific elevation of levels of transaminase or lactic acid dehydrogenase (LDH) - LIDA (obstructive sleep apnea) - Pneumonia - Schizophreniform disorder, chronic condition (HCC) - Simple endometrial hyperplasia without atypia mirena IUD 01/2011 PAST SURGICAL HISTORY Procedure Laterality Date - COLONOSCOPY W/BX 12/19/2016 Normal colonoscopy-10 year follow-up - PAST SURGICAL HISTORY OF 1982 corrective jaw surgery - REMOVAL GALLBLADDER 1998 open FAMILY HISTORY Problem Relation Age of Onset - Psychiatry Mother depression - other (lung cancer) Paternal Grandfather - Psychiatry Brother schizophrenia - Diabetes Brother - Hypertension Brother - Psychiatry Sister deperssion Social History Marital status: Single Spouse name: Years of education: 14 Number of children: 0 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 REVIEW OF SYSTEMS GI: Negative for blood in stools or black stools, change in bowel habit : Negative All other reviewed and negative other than HPI. HEALTH MAINTENANCE: Reviewed health maintenance issues today and recommended the following in detail. HPV EVERY 5 YEARS due on 10/03/2014 DIABETIC FOOT EXAM due on 05/08/2018 INFLUENZA(1) due on 06/13/2018 VITALS: BP 110/64 Pulse 100 Temp (!) 35.6 ?C (96 ?F) (Tympanic) Resp 18 Wt 88.9 kg (196 lb) LMP 09/12/2017 BMI 37.03 kg/m? Some mild orthostatic changes as well. Last 4 Encounter Wt Readings: Date: Wt: 07/17/2018 88.9 kg (196 lb) 07/02/2018 87.9 kg (193 lb 12.8 oz) 06/08/2018 89.2 kg (196 lb 11.2 oz) 04/29/2018 89 kg (196 lb 3.2 oz) PHYSICAL EXAMINATION: General appearance: Well appearing, alert, in no acute distress, well-hydrated, well nourished. Skin: Skin color, texture, turgor normal, no suspicious rashes or lesions Head: Normocephalic, no masses, lesions, tenderness or abnormalities Eyes: Anicteric sclera. Pupils are equally round and reactive to light. Extraocular movements are intact. , nystagmus in horizontal gaze bilaterally Ears: External ears normal, canals clear Nose/Sinuses: Nares normal, septum midline, mucosa normal, no drainage or sinus tenderness Oropharynx: Lips, mucosa, and tongue normal, teeth and gums normal, oropharynx normal Neck: Supple, no adenopathy; thyroid symmetric, normal size, no bruits Lungs: Lungs clear to auscultation. No wheezing, rhonchi, rales Heart: RRR without murmur, gallop, or rubs. No ectopy Abdomen: Normal abdominal exam, Abdomen soft, non-tender. Bowel sounds normal. No masses, organomegaly Extremities: No deformities, edema, skin discoloration, clubbing or cyanosis. Good capillary refill. Musculoskeletal: No joint swelling, deformity, or tenderness Neuro: Gait normal. Reflexes normal and symmetric. Sensation grossly intact. Feet:Shoes and socks removed, No deformities, ulcers, calluses, normal distal pulses and sensitive to 10 gm monofilament ASSESSMENT/PLAN: 1. Vertigo - ICD9: 780.4, ICD10: R42 (primary diagnosis) - her symptoms are more suggestive of BPV. Will try vestibular therapy first. Get up slowly as well. - check labs. - CONSULT TO PHYSICAL THERAPY 2. Need for vaccination - ICD9: V05.9, ICD10: Z23 - INFLUENZA VACCINE QUADRIVALENT AGE 3 YRS PLUS + IM 3. Schizophreniform disorder, chronic condition (HCC) - ICD9: 295.42, ICD10: F20.81 - continue meds. 4. Type 2 diabetes mellitus with diabetic nephropathy, with long-term current use of insulin (HCC) - ICD9: 250.40, 583.81, V58.67, ICD10: E11.21, Z79.4 Controlled. - Continue current medications - CBC + DIFF - BASIC METABOLIC PNL - HGB A1C 5. Water intoxication - ICD9: 276.69, ICD10: E87.79 - HGB A1C 6. Mixed hyperlipidemia - ICD9: 272.2, ICD10: E78.2 - good control - Continue current medication. Boris Jones MD RTO in four weeks PROGRESS Observed: 07/17/2018 Status: COMPLETED Source: [place] 9:57 AM [facility] REPOSITORY HNO ID: [id number] Author: Maria A Saldivar LPN Service: (none) Author Type: (none) Type: Progress Notes Filed: 07/17/2018 4:57 PM Note Text: 52 year old female here for INACTIVATED INFLUENZA VACCINE. 3746-5070 Season Patient is identified by name and date of : Yes [] CONTRAINDICATIONS color enhanced section Age less than 6 months? No Allergy to eggs, chicken, chicken feathers, or chicken dander? No Allergy to thimerosal (a preservative) or formaldehyde, gelatin? No History of severe reaction to any vaccine component or a previous dose of influenza vaccination? No History of Guillain-Emmons Syndrome within 6 weeks after a previous influenza vaccine? No Patient is not moderately or severely ill? No Current temperature greater or equal to 100.4F? No History of Bone Marrow Transplant prior 6 months or solid organ transplant in the past 3 months ? No History of fainting after a prior injection or medical procedure? No- ? If patient has fainted in the past, the CDC recommends sitting or lying down for 15 minutes after the vaccination. [] VERIFICATION color enhanced section Was the answer Yes for any of the above contraindications? No contraindications present. Acceptable to proceed with vaccine. Patient/guardian agrees the above answers are true to the best of their knowledge? Yes Flu vaccine information sheet given? Yes See immunization activity in [facility] for details of immunizations adminstered today. Patient age: [age] year old For The 1623-0273 Flu Season 6-35 months old: Fluzone 0.25 ml - IM (Preservative Free) 3 years of age: Fluzone 0.5 ml - IM (Preservative Free) 3 years and older: Fluzone 0.5 ml- IM-(with Preservatives) 65+ years old: 2-49 years old Fluzone High-Dose 0.5 ml - IM (Preservative Free) FLUMIST- intranasal REMEMBER: If patient is less than 9 years of age and this is the first vaccine of Influenza to be received in any flu season, they should receive a second dose in one months time. CNOV Observed: 07/17/2018 Status: COMPLETED Source: [place] 9:40 AM [facility] REPOSITORY [facility] BRITTNEE LE ([id number]) 1965 F Date Time Provider Department 07/17/18 9:40 AM BORIS JONES [facility] During your visit today, we recorded the following information about you: Temperature Pulse Respiration Blood pressure 96 degrees 100/minute 18/minute 122/82 Weight 88.9 kg Maria A Saldivar [employer] 07/17/2018 10:00 AM Signed Has been dizzy for a couple of weeks. Happens mostly when lying down. Has noticed while at PT when she sits up that is feeling the dizziness and also at home in bed when rolls to right side. Fatigue for a couple of weeks also. States that around noon everyday gets really tired. This happens after she takes her clonazepam. Have tried to adjust dosing and that is unsuccessful. Denies changes or problems with her sleep. Maria A Saldivar [employer] SERVICE ADVISOR 07/17/2018 4:57 PM Signed 52 year old female here for INACTIVATED INFLUENZA VACCINE. 2771-9015 Season Patient is identified by name and date of : Yes [] CONTRAINDICATIONS color enhanced section Age less than 6 months? No Allergy to eggs, chicken, chicken feathers, or chicken dander? No Allergy to thimerosal (a preservative) or formaldehyde, gelatin? No History of severe reaction to any vaccine component or a previous dose of influenza vaccination? No History of Guillain-Emmons Syndrome within 6 weeks after a previous influenza vaccine? No Patient is not moderately or severely ill? No Current temperature greater or equal to 100.4F? No History of Bone Marrow Transplant prior 6 months or solid organ transplant in the past 3 months ? No History of fainting after a prior injection or medical procedure? No- ? If patient has fainted in the past, the CDC recommends sitting or lying down for 15 minutes after the vaccination. [] VERIFICATION color enhanced section Was the answer Yes for any of the above contraindications? No contraindications present. Acceptable to proceed with vaccine. Patient/guardian agrees the above answers are true to the best of their knowledge? Yes Flu vaccine information sheet given? Yes See immunization activity in [facility] for details of immunizations adminstered today. Patient age: [age] year old For The 9721-7874 Flu Season 6-35 months old: Fluzone 0.25 ml - IM (Preservative Free) 3 years of age: Fluzone 0.5 ml - IM (Preservative Free) 3 years and older: Fluzone 0.5 ml- IM-(with Preservatives) 65+ years old: 2-49 years old Fluzone High-Dose 0.5 ml - IM (Preservative Free) FLUMIST- intranasal REMEMBER: If patient is less than 9 years of age and this is the first vaccine of Influenza to be received in any flu season, they should receive a second dose in one months time. Boris Jones MD 07/17/2018 4:57 PM Signed Patient presents with: Fatigue Dizziness Imm/Inj: Flu Vaccine HPI: Patient presents today for office visit for dizziness. Nursing Notes: Maria A Saldivar RACHAEL 07/17/2018 10:00 AM Signed Has been dizzy for a couple of weeks. Happens mostly when lying down. Has noticed while at PT when she sits up that is feeling the dizziness and also at home in bed when rolls to right side. Fatigue for a couple of weeks also. States that around noon everyday gets really tired. This happens after she takes her clonazepam. Have tried to adjust dosing and that is unsuccessful. Denies changes or problems with her sleep. happens later on in the day. The room actually spins. No nausea. No headache No speech change. No focal numbness or weakness. No chest pain No shortness of breath. No edema. No palpitations. No fall or syncope. Worsened on laying down and turning side to side. Sugars are occasionally high. Rare hypoglycemic spells. She has not checked her sugar when she gets lightheaded. Explained she will need to talk with psychiatry regarding the klonopin. MEDICATIONS: Current Outpatient Prescriptions: metFORMIN (GLUCOPHAGE) 500 mg tablet TAKE 2 TABLETS BY MOUTH TWICE DAILY WITH MEALS. . pravastatin (PRAVACHOL) 20 mg tablet TAKE 1 TABLET BY MOUTH ONCE DAILY. glipiZIDE (GLUCOTROL) 5 mg tablet TAKE 1 TABLET TWICE A DAY lubiprostone (AMITIZA) 24 mcg capsule Take 1 capsule by mouth twice daily with meals. MILK OF MAGNESIA 400 mg/5 mL suspension TAKE 15ML BY MOUTH DAILY NEEDED FOR CONSTIPATION (FOR NO BOWEL MOVEMENT AFTER 3 LANTUS U-100 INSULIN 100 unit/mL injection Give 24 units subq daily at 4 PM or as directed potassium chloride ER (K-DUR, KLOR-CON) 20 mEq tablet TAKE 1 TABLET BY MOUTH DAILY Ferrous Gluconate 324 mg (36 mg iron) tab Take 1 tablet by mouth twice daily with meals. COMPOUNDED PRESCRIPTION Please discontinue Tylenol ES 500 mg daily at bedtime STOOL SOFTENER 100 mg capsule TAKE 1 CAPSULE TWICE A DAY (Patient not taking: Reported on 03/16/2018) aspirin, enteric coated (ASPIRIN, ENTERIC COATED) 325 mg EC tablet Take 1 tablet by mouth once daily. Take with food. acetaminophen (TYLENOL EXTRA STRENGTH) 500 mg tablet Take 1 tablet by mouth daily at bedtime. (Patient not taking: Reported on 06/08/2018 ) furosemide (LASIX) 20 mg tablet Take 1 tablet by mouth once daily. wheat dextrin (BENEFIBER SUGAR FREE, DEXTRIN,) 3 gram/3.8 gram powd Stir 2 teaspoonfuls into 4-8 oz of beverage or soft food daily Cholecalciferol, Vitamin D3, 1,000 unit cap Take 1 capsule by mouth once daily. cloZAPine (CLOZARIL) 100 mg tablet take one tablet at noon, 2 tablets at 3 PM and 3 tablets at Bedtime (Patient not taking: Reported on 07/02/2018 ) albuterol HFA (VENTOLIN HFA) 90 mcg/actuation inhaler Inhale 2 Puffs as instructed every 4 hours as needed for Wheezing/Shortness of Breath. (Patient not taking: Reported on 06/08/2018 ) Insulin Syringe-Needle U-100 (BD INSULIN SYRINGE) 1 mL 28 gauge x 1/2 syrg 10 Units once daily. FLOVENT DISKUS 250 mcg/actuation dsdv INHALE ONE PUFF BY MOUTH TWICE DAILY DIRECTED OMEGA-3 FATTY ACIDS (FISH OIL CONCENTRATE ORAL) Take by mouth once daily. desvenlafaxine ER (PRISTIQ) 50 mg 24 hr tablet Take 50 mg by mouth once daily. Lancets lancets test BS twice daily 2 days a week- dx 250.00 - non-insulin risperiDONE orally disintegrating (RISPERDAL M) 2 mg disintegrating tablet Take 2 mg by mouth once daily. blood sugar diagnostic (FREESTYLE LITE STRIPS) test strip test BS twice daily - dx - 250.00 -insulin Yes clonazePAM (KLONOPIN) 1 mg tablet Take 0.5 mg Bid, 1 mg po at HS insulin needles, DISPOSABLE, (PEN NEEDLE) 31 X 5/16 ndle Use one needle per dose. Once per day. Blood-Glucose Meter (FREESTYLE LITE METER) monitoring kit Used once daily to check blood sugar. 250.00 risperidone (RISPERDAL CONSTA) 50 mg/2 mL INTRAMUSC. injection Inject 2 mL intramuscularly every 2 weeks. No current facility-administered medications for this visit. 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 [facility], pt was on metformin for a while but taken off - pt never told if she had DM or not - Major depressive disorder, recurrent episode, unspecified - Nonspecific elevation of levels of transaminase or lactic acid dehydrogenase (LDH) - LIDA (obstructive sleep apnea) - Pneumonia - Schizophreniform disorder, chronic condition (HCC) - Simple endometrial hyperplasia without atypia mirena IUD 01/2011 PAST SURGICAL HISTORY Procedure Laterality Date - COLONOSCOPY W/BX 12/19/2016 Normal colonoscopy-10 year follow-up - PAST SURGICAL HISTORY OF 1982 corrective jaw surgery - REMOVAL GALLBLADDER 1998 open FAMILY HISTORY Problem Relation Age of Onset - Psychiatry Mother depression - other (lung cancer) Paternal Grandfather - Psychiatry Brother schizophrenia - Diabetes Brother - Hypertension Brother - Psychiatry Sister deperssion Social History Marital status: Single Spouse name: Years of education: 14 Number of children: 0 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 REVIEW OF SYSTEMS GI: Negative for blood in stools or black stools, change in bowel habit : Negative All other reviewed and negative other than HPI. HEALTH MAINTENANCE: Reviewed health maintenance issues today and recommended the following in detail. HPV EVERY 5 YEARS due on 10/03/2014 DIABETIC FOOT EXAM due on 05/08/2018 INFLUENZA(1) due on 06/13/2018 VITALS: BP 110/64 Pulse 100 Temp (!) 35.6 ?C (96 ?F) (Tympanic) Resp 18 Wt 88.9 kg (196 lb) LMP 09/12/2017 BMI 37.03 kg/m? Some mild orthostatic changes as well. Last 4 Encounter Wt Readings: Date: Wt: 07/17/2018 88.9 kg (196 lb) 07/02/2018 87.9 kg (193 lb 12.8 oz) 06/08/2018 89.2 kg (196 lb 11.2 oz) 04/29/2018 89 kg (196 lb 3.2 oz) PHYSICAL EXAMINATION: General appearance: Well appearing, alert, in no acute distress, well-hydrated, well nourished. Skin: Skin color, texture, turgor normal, no suspicious rashes or lesions Head: Normocephalic, no masses, lesions, tenderness or abnormalities Eyes: Anicteric sclera. Pupils are equally round and reactive to light. Extraocular movements are intact. , nystagmus in horizontal gaze bilaterally Ears: External ears normal, canals clear Nose/Sinuses: Nares normal, septum midline, mucosa normal, no drainage or sinus tenderness Oropharynx: Lips, mucosa, and tongue normal, teeth and gums normal, oropharynx normal Neck: Supple, no adenopathy; thyroid symmetric, normal size, no bruits Lungs: Lungs clear to auscultation. No wheezing, rhonchi, rales Heart: RRR without murmur, gallop, or rubs. No ectopy Abdomen: Normal abdominal exam, Abdomen soft, non-tender. Bowel sounds normal. No masses, organomegaly Extremities: No deformities, edema, skin discoloration, clubbing or cyanosis. Good capillary refill. Musculoskeletal: No joint swelling, deformity, or tenderness Neuro: Gait normal. Reflexes normal and symmetric. Sensation grossly intact. Feet:Shoes and socks removed, No deformities, ulcers, calluses, normal distal pulses and sensitive to 10 gm monofilament ASSESSMENT/PLAN: 1. Vertigo - ICD9: 780.4, ICD10: R42 (primary diagnosis) - her symptoms are more suggestive of BPV. Will try vestibular therapy first. Get up slowly as well. - check labs. - CONSULT TO PHYSICAL THERAPY 2. Need for vaccination - ICD9: V05.9, ICD10: Z23 - INFLUENZA VACCINE QUADRIVALENT AGE 3 YRS PLUS + IM 3. Schizophreniform disorder, chronic condition (HCC) - ICD9: 295.42, ICD10: F20.81 - continue meds. 4. Type 2 diabetes mellitus with diabetic nephropathy, with long-term current use of insulin (HCC) - ICD9: 250.40, 583.81, V58.67, ICD10: E11.21, Z79.4 Controlled. - Continue current medications - CBC + DIFF - BASIC METABOLIC PNL - HGB A1C 5. Water intoxication - ICD9: 276.69, ICD10: E87.79 - HGB A1C 6. Mixed hyperlipidemia - ICD9: 272.2, ICD10: E78.2 - good control - Continue current medication. Boris Jones MD RTO in four weeks Referring Provider: SELF [[id number]] Allergies As of Date: 07/17/2018 (No Known Allergies) Date Reviewed: 07/17/2018 Reviewed by: Maria A Saldivar LPN - Fully Assessed Reason for Visit: Fatigue [46] Dizziness [36] Imm/Inj [58] Cmt: Flu Vaccine Reason For Visit History Recorded Primary Visit Diagnosis:Vertigo [R42] Other Visit Diagnoses:Need for vaccination [Z23] Schizophreniform disorder, chronic condition (HCC) [F20.81] Type 2 diabetes mellitus with diabetic nephropathy, with long-term current use of insulin (HCC) [E11.21, Z79.4] Water intoxication [E87.79] Mixed hyperlipidemia [E78.2] Order(s):INFLUENZA VACCINE QUADRIVALENT AGE 3 YRS PLUS + IM [[id number]] Order #: [id number] CBC + DIFF [SQCBCDIF] Order #: [id number] FUTURE BASIC METABOLIC PNL [SQBMP] Order #: [id number] FUTURE HGB A1C [[id number]] Order #: [id number] FUTURE CONSULT TO PHYSICAL THERAPY [9032] Order #: [id number]: 1 Prescriptions as of 07/17/2018 Sig: METFORMIN 500 MG TABLET TAKE 2 TABLETS BY MOUTH TWICE* PRAVASTATIN 20 MG TABLET TAKE 1 TABLET BY MOUTH ONCE D* GLIPIZIDE 5 MG TABLET TAKE 1 TABLET TWICE A DAY LUBIPROSTONE 24 MCG CAPSULE Take 1 capsule by mouth twice* MILK OF MAGNESIA 400 MG/5 ML * TAKE 15ML BY MOUTH DAILY N* LANTUS U-100 INSULIN 100 UNIT* Give 24 units subq daily at 4* POTASSIUM CHLORIDE ER 20 MEQ * TAKE 1 TABLET BY MOUTH DAILY FERROUS GLUCONATE 324 MG (36 * Take 1 tablet by mouth twice * COMPOUNDED PRESCRIPTION Please discontinue Tylenol ES* STOOL SOFTENER 100 MG CAPSULE TAKE 1 CAPSULE TWICE A DAY Patient not taking: Reported on 03/16/2018 ASPIRIN 325 MG TABLET,DELAYED* Take 1 tablet by mouth once d* ACETAMINOPHEN 500 MG TABLET Take 1 tablet by mouth daily * Patient not taking: Reported on 06/08/2018 FUROSEMIDE 20 MG TABLET Take 1 tablet by mouth once d* WHEAT DEXTRIN 3 GRAM/3.8 GRAM* Stir 2 teaspoonfuls into 4-8 * CHOLECALCIFEROL (VITAMIN D3) * Take 1 capsule by mouth once * CLOZAPINE 100 MG TABLET take one tablet at noon, 2 ta* Patient not taking: Reported on 07/02/2018 ALBUTEROL SULFATE HFA 90 MCG/* Inhale 2 Puffs as instructed * Patient not taking: Reported on 06/08/2018 INSULIN SYRINGE-NEEDLE U-100 * 10 Units once daily. FLOVENT DISKUS 250 MCG/ACTUAT* INHALE ONE PUFF BY MOUTH TWIC* FISH OIL CONCENTRATE ORAL Take by mouth once daily. DESVENLAFAXINE SUCCINATE ER 5* Take 50 mg by mouth once ziggy* LANCETS test BS twice daily 2 days a * RISPERIDONE 2 MG DISINTEGRATI* Take 2 mg by mouth once daily. BLOOD SUGAR DIAGNOSTIC STRIPS test BS twice daily - dx - 25* CLONAZEPAM 1 MG TABLET Take 0.5 mg Bid, 1 mg po at HS PEN NEEDLE, DIABETIC 31 GAUGE* Use one needle per dose. Once* BLOOD-GLUCOSE METER KIT Used once daily to check bloo* * RISPERIDONE MICROSPHERES 50 M* Inject 2 mL intramuscularly e* Problem List As Of Date 07/17/2018 Noted Resolved Schizophreniform disorder, chronic condition (H* Priority: Mild More... Other abnormal glucose [R73.09] 04/29/2018 Priority: A More... DM w/o Complication Type II [E11.9] INVALID FOR*02/22/2014 Priority: Moderate Gastritis [K29.70] INVALID FOR* Routine general medical examination at a [facility]*INVALID FOR*11/26/2011 Class: Chronic More... Routine gynecological examination [Z01.419] INVALID FOR*11/26/2011 Class: Chronic More... Vitamin D deficiency [E55.9] INVALID FOR* Priority: A More... Liver Function Test Abnormality [R94.5] INVALID FOR* More... 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 Encounter for screening for malignant neoplasm *INVALID FOR* Postmenopausal bleeding [N95.0] INVALID FOR* More... Acute diastolic CHF (congestive heart failure) *INVALID FOR* More... Obesity, Class II, BMI 35-39.9 [E66.9] INVALID FOR* Visit Notes: >> Maria A Saldivar LPN FriJul 17, 2018 9:53 AM Status: Signed Has been dizzy for a couple of weeks. Happens mostly when lying down. Has noticed while at PT when she sits up that is feeling the dizziness and also at home in bed when rolls to right side. Fatigue for a couple of weeks also. States that around noon everyday gets really tired. This happens after she takes her clonazepam. Have tried to adjust dosing and that is unsuccessful. Denies changes or problems with her sleep. Disposition: Return in about 4 weeks (around 08/14/2018). Follow-up and Disposition History Recorded Encounter Status:Closed by MARIA A SALDIVAR LPN on 07/17/18 CNPTOUTREACH Observed: 07/17/2018 Status: COMPLETED Source: [place] 12:00 AM [facility] REPOSITORY [facility] BRITTNEE LE ([id number]) 1965 F Date Time Provider Department 07/17/18 ASIA BURRELL (RN) CHRISTIAN During your visit today, we recorded the following information about you: Asia Burrell RN 07/17/2018 11:14 AM Signed PRIMARY CARE COORDINATION IN OFFICE VISIT WITH PCP Patient has been identified by name and date of . PCP Assessment/Plan: Reviewed PCP plan with patient using Teach Back Discussed anxiety vs sleepiness from clonopin and pt may have to live with side effects if she becomes so anxious when she is off the medication PCC Plan of Care: Patient concerns: Pt worried about her sleepiness from the clonopin. Next Office Visit: Visit date not found Plan For Next Call: One month Asia Burrell RN July 17, 2018 Allergies As of Date: 07/17/2018 (No Known Allergies) Date Reviewed: 07/17/2018 Reviewed by: Maria A Saldivar LPN - Fully Assessed Reason for Visit: Patient Accounts Coordinator-In Office Visit [0543] Prescriptions as of 07/17/2018 Sig: METFORMIN 500 MG TABLET TAKE 2 TABLETS BY MOUTH TWICE* PRAVASTATIN 20 MG TABLET TAKE 1 TABLET BY MOUTH ONCE D* GLIPIZIDE 5 MG TABLET TAKE 1 TABLET TWICE A DAY LUBIPROSTONE 24 MCG CAPSULE Take 1 capsule by mouth twice* MILK OF MAGNESIA 400 MG/5 ML * TAKE 15ML BY MOUTH DAILY N* LANTUS U-100 INSULIN 100 UNIT* Give 24 units subq daily at 4* POTASSIUM CHLORIDE ER 20 MEQ * TAKE 1 TABLET BY MOUTH DAILY FERROUS GLUCONATE 324 MG (36 * Take 1 tablet by mouth twice * COMPOUNDED PRESCRIPTION Please discontinue Tylenol ES* STOOL SOFTENER 100 MG CAPSULE TAKE 1 CAPSULE TWICE A DAY Patient not taking: Reported on 03/16/2018 ASPIRIN 325 MG TABLET,DELAYED* Take 1 tablet by mouth once d* ACETAMINOPHEN 500 MG TABLET Take 1 tablet by mouth daily * Patient not taking: Reported on 06/08/2018 FUROSEMIDE 20 MG TABLET Take 1 tablet by mouth once d* WHEAT DEXTRIN 3 GRAM/3.8 GRAM* Stir 2 teaspoonfuls into 4-8 * CHOLECALCIFEROL (VITAMIN D3) * Take 1 capsule by mouth once * CLOZAPINE 100 MG TABLET take one tablet at noon, 2 ta* Patient not taking: Reported on 07/02/2018 ALBUTEROL SULFATE HFA 90 MCG/* Inhale 2 Puffs as instructed * Patient not taking: Reported on 06/08/2018 INSULIN SYRINGE-NEEDLE U-100 * 10 Units once daily. FLOVENT DISKUS 250 MCG/ACTUAT* INHALE ONE PUFF BY MOUTH TWIC* FISH OIL CONCENTRATE ORAL Take by mouth once daily. DESVENLAFAXINE SUCCINATE ER 5* Take 50 mg by mouth once ziggy* LANCETS test BS twice daily 2 days a * RISPERIDONE 2 MG DISINTEGRATI* Take 2 mg by mouth once daily. BLOOD SUGAR DIAGNOSTIC STRIPS test BS twice daily - dx - 25* CLONAZEPAM 1 MG TABLET Take 0.5 mg Bid, 1 mg po at HS PEN NEEDLE, DIABETIC 31 GAUGE* Use one needle per dose. Once* BLOOD-GLUCOSE METER KIT Used once daily to check bloo* * RISPERIDONE MICROSPHERES 50 M* Inject 2 mL intramuscularly e* Problem List As Of Date 07/17/2018 Noted Resolved Schizophreniform disorder, chronic condition (H* Priority: Mild More... Other abnormal glucose [R73.09] 04/29/2018 Priority: A More... DM w/o Complication Type II [E11.9] INVALID FOR*02/22/2014 Priority: Moderate Gastritis [K29.70] INVALID FOR* Routine general medical examination at a health*INVALID FOR*11/26/2011 Class: Chronic More... Routine gynecological examination [Z01.419] INVALID FOR*11/26/2011 Class: Chronic More... Vitamin D deficiency [E55.9] INVALID FOR* Priority: A More... Liver Function Test Abnormality [R94.5] INVALID FOR* More... 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 Encounter for screening for malignant neoplasm *INVALID FOR* Postmenopausal bleeding [N95.0] INVALID FOR* More... Acute diastolic CHF (congestive heart failure) *INVALID FOR* More... Obesity, Class II, BMI 35-39.9 [E66.9] INVALID FOR* Encounter Status:Closed by ASIA BURRELL on 07/17/18 PROGRESS Observed: 07/16/2018 Status: COMPLETED Source: [place] 9:08 AM [facility] REPOSITORY HNO ID: [id number] Author: Asia (Rn) Indra Service: (none) Author Type: Registered Nurse Type: Progress Notes Filed: 07/16/2018 9:27 AM Note Text: PRIMARY CARE COORDINATION FOLLOW-UP NOTE Provider Action/FYI Pt having extreme dizziness when lies on left side, instructed to bring in for appt Patient identified by name and date of . YES Spoke to Shereen at intermediate Summary: TC to Shereen at intermediate, informed pt should be seen during walk in hours for dizziness. States she is the only staff person there today and she can't transport pt. Instructed she and supervisor bit and shank department/CM can discuss when they are able to bring patient in, verbalized understanding. TC to neetu Leach message informing PCC investigated PT issue and CM can call PCC back about that. PCC will call intermediate to bring pt in for appt to check dizziness. Concerns: Message left by [facility], states pt is going to PT twice a week. Again stated patient isn't doing PT exercises at home and CM feels pt is viewing PT as social time. Pt is having extreme dizziness when she lies on her left side and takes her 5-6 minutes to stabilize after lying flat. States pt is c/o extreme fatigue. CM states she needs to talk to psychiatrist about weaning off clonopin but when pt is off of it she has no coping skills when she gets anxious. Instructed PCC to call intermediate if pt needs to be seen for dizziness. Savings Teller plan for next outreach: Will follow up 2 weeks Signature Asia Burrell RN July 16, 2018 PAVITHRATOUTRLEVY Observed: 07/16/2018 Status: COMPLETED Source: [place] 12:00 AM [facility] REPOSITORY Patient Outreach ([facility]) BRITTNEE LE ([id number]) 1965 F Date Time Provider Department 07/16/18 ASIA BURRELL (RN) [facility] During your visit today, we recorded the following information about you: Asia Burrell RN 07/16/2018 9:27 AM Signed PRIMARY CARE COORDINATION FOLLOW-UP NOTE Provider Action/FYI Pt having extreme dizziness when lies on left side, instructed to bring in for appt Patient identified by name and date of . YES Spoke to Shereen at intermediate Summary: TC to Shereen at intermediate, informed pt should be seen during walk in hours for dizziness. States she is the only staff person there today and she can't transport pt. Instructed she and supervisor bit and shank department/CM can discuss when they are able to bring patient in, verbalized understanding. TC to neetu Leach message informing PCC investigated PT issue and CM can call PCC back about that. PCC will call intermediate to bring pt in for appt to check dizziness. Concerns: Message left by Z[facility]RINA [facility] at [facility], states pt is going to PT twice a week. Again stated patient isn't doing PT exercises at home and CM feels pt is viewing PT as social time. Pt is having extreme dizziness when she lies on her left side and takes her 5-6 minutes to stabilize after lying flat. States pt is c/o extreme fatigue. CM states she needs to talk to psychiatrist about weaning off clonopin but when pt is off of it she has no coping skills when she gets anxious. Instructed PCC to call intermediate if pt needs to be seen for dizziness. 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 [4877] Prescriptions as of 07/16/2018 Sig: METFORMIN 500 MG TABLET TAKE 2 TABLETS BY MOUTH TWICE* PRAVASTATIN 20 MG TABLET TAKE 1 TABLET BY MOUTH ONCE D* GLIPIZIDE 5 MG TABLET TAKE 1 TABLET TWICE A DAY LUBIPROSTONE 24 MCG CAPSULE Take 1 capsule by mouth twice* MILK OF MAGNESIA 400 MG/5 ML * TAKE 15ML BY MOUTH DAILY N* LANTUS U-100 INSULIN 100 UNIT* Give 24 units subq daily at 4* POTASSIUM CHLORIDE ER 20 MEQ * TAKE 1 TABLET BY MOUTH DAILY FERROUS GLUCONATE 324 MG (36 * Take 1 tablet by mouth twice * COMPOUNDED PRESCRIPTION Please discontinue Tylenol ES* STOOL SOFTENER 100 MG CAPSULE TAKE 1 CAPSULE TWICE A DAY Patient not taking: Reported on 03/16/2018 ASPIRIN 325 MG TABLET,DELAYED* Take 1 tablet by mouth once d* ACETAMINOPHEN 500 MG TABLET Take 1 tablet by mouth daily * Patient not taking: Reported on 06/08/2018 FUROSEMIDE 20 MG TABLET Take 1 tablet by mouth once d* WHEAT DEXTRIN 3 GRAM/3.8 GRAM* Stir 2 teaspoonfuls into 4-8 * CHOLECALCIFEROL (VITAMIN D3) * Take 1 capsule by mouth once * CLOZAPINE 100 MG TABLET take one tablet at noon, 2 ta* Patient not taking: Reported on 07/02/2018 ALBUTEROL SULFATE HFA 90 MCG/* Inhale 2 Puffs as instructed * Patient not taking: Reported on 06/08/2018 INSULIN SYRINGE-NEEDLE U-100 * 10 Units once daily. FLOVENT DISKUS 250 MCG/ACTUAT* INHALE ONE PUFF BY MOUTH TWIC* FISH OIL CONCENTRATE ORAL Take by mouth once daily. DESVENLAFAXINE SUCCINATE ER 5* Take 50 mg by mouth once ziggy* LANCETS test BS twice daily 2 days a * RISPERIDONE 2 MG DISINTEGRATI* Take 2 mg by mouth once daily. BLOOD SUGAR DIAGNOSTIC STRIPS test BS twice daily - dx - 25* CLONAZEPAM 1 MG TABLET Take 0.5 mg Bid, 1 mg po at HS PEN NEEDLE, DIABETIC 31 GAUGE* Use one needle per dose. Once* BLOOD-GLUCOSE METER KIT Used once daily to check bloo* * RISPERIDONE MICROSPHERES 50 M* Inject 2 mL intramuscularly e* Problem List As Of Date 07/16/2018 Noted Resolved Schizophreniform disorder, chronic condition (H* Priority: Mild More... Other abnormal glucose [R73.09] 04/29/2018 Priority: A More... DM w/o Complication Type II [E11.9] INVALID FOR*02/22/2014 Priority: Moderate Gastritis [K29.70] INVALID FOR* Routine general medical examination at a [facility]*INVALID FOR*11/26/2011 Class: Chronic More... Routine gynecological examination [Z01.419] INVALID FOR*11/26/2011 Class: Chronic More... Vitamin D deficiency [E55.9] INVALID FOR* Priority: A More... Liver Function Test Abnormality [R94.5] INVALID FOR* More... 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 Encounter for screening for malignant neoplasm *INVALID FOR* Postmenopausal bleeding [N95.0] INVALID FOR* More... Acute diastolic CHF (congestive heart failure) *INVALID FOR* More... Obesity, Class II, BMI 35-39.9 [E66.9] INVALID FOR* Encounter Status:Closed by ASIA BURRELL on 07/16/18 PROGRESS Observed: 07/08/2018 Status: COMPLETED Source: [place] 5:09 PM [facility] REPOSITORY HNO ID: [id number] Author: Asia Crews) Indra Service: (none) Author Type: Registered Nurse Type: Progress Notes Filed: 07/08/2018 5:09 PM Note Text: Discussed below PT therapy plan with PCP, verbalized agreement. Asia Burrell RN July 08, 2018 5:09 PM PROGRESS Observed: 07/08/2018 Status: COMPLETED Source: [place] 2:18 PM [facility] REPOSITORY HNO ID: [id number] Author: Asia Crews) Indra Service: (none) Author Type: Registered Nurse Type: Progress Notes Filed: 07/08/2018 2:28 PM Note Text: PRIMARY CARE COORDINATION FOLLOW-UP NOTE Provider Action/FYI Discussed therapy with PT, she feels pt is benefiting by therapy and doesn't want to decrease sessions at this time. Patient identified by name and date of . YES Spoke to Zeynep PT Summary: PTZeynep states she feels patient is engaged and participating appropriately with PT. States pt does states she is getting benefit from the therapy and she doesn't want to decrease pt's appointments at this time if okay with PCP. Discussed scheduling patient earlier in the day however that would mean pt could possibly get a different therapist every time. Discussed we both agree that pt is probably better staying with one therapist due to her psych diagnoses. Savings Teller plan for next outreach: Will follow up as scheduled Signature Asia Burrell RN July 08, 2018 PROGRESS Observed: 07/07/2018 Status: COMPLETED Source: [place] 4:52 PM [facility] REPOSITORY HNO ID: [id number] Author: Asia (Ramón) Indra Service: (none) Author Type: Registered Nurse Type: Progress Notes Filed: 07/07/2018 4:54 PM Note Text: PRIMARY CARE COORDINATION QUICK NOTE Provider Action/FYI FYI Patient identified by name and date . TC to [facility] asked them to leave message for PT, Zeynep to call PCC back. Asia Burrell RN CBC W/DIFF, AUTOMATED Collected: 07/07/2018 Status: F Source: [place] 9:41 AM [facility] REPOSITORY TYPE CODE TESTS RESULT OUT OF RANGE REFERENCE UNITS LAB L100.1000 4.4-11.0 K/mm3 Normal WBC 9.2 LAB L100.1200 4.2-5.4 M/mm3 Normal RBC 4.58 LAB L100.1300 12.0-15.0 g/dl Normal HGB 13.2 LAB L100.1400 37-47 % Normal HCT 40.2 LAB L100.1500 81-99 fL Normal MCV 87.8 LAB L100.1600 27.0-32.0 pg Normal MCH 28.8 LAB L100.1700 32-36 g/gl Normal MCHC 32.8 LAB L100.1810 11.6-14.6 % Normal RDW CV 14.1 LAB L100.1820 35.1-43.9 fl High RDW SD 44.8 LAB L100.1900 150-450 K/mm3 Normal PLT 213 LAB L100.2000 6.2-12.0 fl Normal MPV 10.6 LAB L100.2100 47-70 % Normal NEUT% 65.1 LAB L100.2200 19-41 % Normal LY% 26.0 LAB L100.2300 0-10 % Normal MONO% 8.6 LAB L100.2400 0-5 % Normal EO% 0.0 LAB L100.2500 0-1 % Normal BASO% 0.2 LAB L100.2550 0.0-0.9 % Normal IM GRAN % 0.100 Result Comment: IG% - Immature Granulocytes (promyelocytes, myelocytes and metamyelocytes) > 1% indicates that a LEFT SHIFT is Present. LAB L100.2620 2.0-7.7 X10 3/uL Normal Absolute Neut 6.0 LAB L100.2720 0.83-4.51 X10 3/ul Normal Absolute Lymph 2.39 Performed By: #### L100.0100 #### [facility] [address] 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 Pt Wears glasses, no contacts. She denies cough or congestion. No ear pain or sore throat. She does not have any pink eye contacts. She doesn't think she got anything in her eye. Review of Systems Eyes: Positive for pain, discharge and redness. All other systems reviewed and are negative. 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 . Disp: 112 tablet Rfl: 5 pravastatin (PRAVACHOL) 20 mg tablet TAKE 1 TABLET BY MOUTH ONCE DAILY. Disp: 28 tablet Rfl: 5 glipiZIDE (GLUCOTROL) 5 mg tablet TAKE 1 TABLET TWICE A DAY Disp: 56 tablet Rfl: 3 lubiprostone (AMITIZA) 24 mcg capsule Take 1 capsule by mouth twice daily with meals. Disp: 60 capsule Rfl: 11 MILK OF MAGNESIA 400 mg/5 mL suspension TAKE 15ML BY MOUTH DAILY NEEDED FOR CONSTIPATION (FOR NO BOWEL MOVEMENT AFTER 3 Disp: 360 mL Rfl: 5 LANTUS U-100 INSULIN 100 unit/mL injection Give 24 units subq daily at 4 PM or as directed Disp: 10 mL Rfl: 11 potassium chloride ER (K-DUR, KLOR-CON) 20 mEq tablet TAKE 1 TABLET BY MOUTH DAILY Disp: 30 tablet Rfl: 5 Ferrous Gluconate 324 mg (36 mg iron) tab Take 1 tablet by mouth twice daily with meals. Disp: 60 tablet Rfl: 5 COMPOUNDED PRESCRIPTION Please discontinue Tylenol ES 500 mg daily at bedtime Disp: Rfl: aspirin, enteric coated (ASPIRIN, ENTERIC COATED) 325 mg EC tablet Take 1 tablet by mouth once daily. Take with food. Disp: 30 tablet Rfl: 11 furosemide (LASIX) 20 mg tablet Take 1 tablet by mouth once daily. Disp: 90 tablet Rfl: 3 wheat dextrin (BENEFIBER SUGAR FREE, DEXTRIN,) 3 gram/3.8 gram powd Stir 2 teaspoonfuls into 4-8 oz of beverage or soft food daily Disp: Rfl: Cholecalciferol, Vitamin D3, 1,000 unit cap Take 1 capsule by mouth once daily. Disp: Rfl: Insulin Syringe-Needle U-100 (BD INSULIN SYRINGE) 1 mL 28 gauge x 1/2 syrg 10 Units once daily. Disp: 100 Syringe Rfl: 10 FLOVENT DISKUS 250 mcg/actuation dsdv INHALE ONE PUFF BY MOUTH TWICE DAILY DIRECTED Disp: 1 Inhaler Rfl: 12 OMEGA-3 FATTY ACIDS (FISH OIL CONCENTRATE ORAL) Take by mouth once daily. Disp: Rfl: desvenlafaxine ER (PRISTIQ) 50 mg 24 hr tablet Take 50 mg by mouth once daily. Disp: Rfl: Lancets lancets test BS twice daily 2 days a week- dx 250.00 - non-insulin Disp: 100 Each Rfl: 6 risperiDONE orally disintegrating (RISPERDAL M) 2 mg disintegrating tablet Take 2 mg by mouth once daily. Disp: Rfl: blood sugar diagnostic (FREESTYLE LITE STRIPS) test strip test BS twice daily - dx - 250.00 -insulin Yes Disp: 100 Strip Rfl: 6 clonazePAM (KLONOPIN) 1 mg tablet Take 0.5 mg Bid, 1 mg po at HS Disp: Rfl: insulin needles, DISPOSABLE, (PEN NEEDLE) 31 X 5/16 ndle Use one needle per dose. Once per day. Disp: 100 Each Rfl: 11 Blood-Glucose Meter (FREESTYLE LITE METER) monitoring kit Used once daily to check blood sugar. 250.00 Disp: 1 Each Rfl: 0 risperidone (RISPERDAL CONSTA) 50 mg/2 mL INTRAMUSC. injection Inject 2 mL intramuscularly every 2 weeks. Disp: Rfl: 0 ofloxacin (OCUFLOX) 0.3 % ophthalmic solution Use 2 Drops in the left eye every 4 hours for 7 days. Disp: 1 Bottle Rfl: 0 cephALEXin (KEFLEX) 500 mg capsule Take 1 capsule by mouth three times daily for 10 days. Disp: 30 capsule Rfl: 0 STOOL SOFTENER 100 mg capsule TAKE 1 CAPSULE TWICE A DAY (Patient not taking: Reported on 03/16/2018) Disp: 56 capsule Rfl: 3 acetaminophen (TYLENOL EXTRA STRENGTH) 500 mg tablet Take 1 tablet by mouth daily at bedtime. (Patient not taking: Reported on 06/08/2018 ) Disp: 30 tablet Rfl: 11 cloZAPine (CLOZARIL) 100 mg tablet take one tablet at noon, 2 tablets at 3 PM and 3 tablets at Bedtime (Patient not taking: Reported on 07/02/2018 ) Disp: Rfl: 0 albuterol HFA (VENTOLIN HFA) 90 mcg/actuation inhaler Inhale 2 Puffs as instructed every 4 hours as needed for Wheezing/Shortness of Breath. (Patient not taking: Reported on 06/08/2018 ) Disp: 1 Inhaler Rfl: 0 No current facility-administered medications for this visit. PAST SURGICAL HISTORY Procedure Laterality Date - COLONOSCOPY W/BX 12/19/2016 Normal colonoscopy-10 year follow-up - PAST SURGICAL HISTORY OF 1982 corrective jaw surgery - REMOVAL GALLBLADDER 1998 open FAMILY HISTORY Problem Relation Age of Onset - Psychiatry Mother depression - other (lung cancer) Paternal Grandfather - Psychiatry Brother schizophrenia - Diabetes Brother - Hypertension Brother - Psychiatry Sister deperssion Social History Substance Use Topics - Smoking status: Former Smoker Packs/day: 2.00 Years: 20.00 Types: Cigarettes Quit date: 01/11/2014 - Smokeless tobacco: Never Used - Alcohol use No BP 124/74 Pulse 118 Temp 36.3 ?C (97.3 ?F) (Left Tympanic) Resp 16 Wt 87.9 kg (193 lb 12.8 oz) LMP 09/12/2017 SpO2 98% BMI 36.62 kg/m? Objective Physical Exam HENT: Head: Normocephalic and atraumatic. Right Ear: Tympanic membrane, external ear and ear canal normal. Left Ear: Tympanic membrane, external ear and ear canal normal. Nose: Nose normal. Mouth/Throat: Uvula is midline, oropharynx is clear and moist and mucous membranes are normal. Eyes: Pt has thick green discharge coming from the eye. The conjunctiva is injected. She has swelling of the upper eyelid and some to the eyebrow. She denies pain on EOMI and no bulging of the eye. Cardiovascular: Normal rate, regular rhythm and normal heart sounds. Pulmonary/Chest: Effort normal and breath sounds normal. Neurological: She is alert. Skin: Skin is warm and dry. No rash noted. Psychiatric: Affect normal. Nursing note and vitals reviewed. ASSESSMENT/PLAN: 1. Acute bacterial conjunctivitis of left eye - ICD9: 372.03, ICD10: H10.32 - see medication orders- pt given ofloxacin and keflex due to redness extending up to the eyebrow. - course and contagiousness issues discussed, including hand washing. - Instructed to call if high fever, development of periorbital redness or swelling, eye pain, visual changes, concerns or if symptoms persist. 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 Pt Wears glasses, no contacts. She denies cough or congestion. No ear pain or sore throat. She does not have any pink eye contacts. She doesn't think she got anything in her eye. Review of Systems Eyes: Positive for pain, discharge and redness. All other systems reviewed and are negative. 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 counseling center, pt was on metformin for a while but taken off - pt never told if she had DM or not - Major depressive disorder, recurrent episode, unspecified - Nonspecific elevation of levels of transaminase or lactic acid dehydrogenase (LDH) - LIDA (obstructive sleep apnea) - Pneumonia - Schizophreniform disorder, chronic condition (HCC) - Simple endometrial hyperplasia without atypia mirena IUD 01/2011 Current Outpatient Prescriptions: metFORMIN (GLUCOPHAGE) 500 mg tablet TAKE 2 TABLETS BY MOUTH TWICE DAILY WITH MEALS. . Disp: 112 tablet Rfl: 5 pravastatin (PRAVACHOL) 20 mg tablet TAKE 1 TABLET BY MOUTH ONCE DAILY. Disp: 28 tablet Rfl: 5 glipiZIDE (GLUCOTROL) 5 mg tablet TAKE 1 TABLET TWICE A DAY Disp: 56 tablet Rfl: 3 lubiprostone (AMITIZA) 24 mcg capsule Take 1 capsule by mouth twice daily with meals. Disp: 60 capsule Rfl: 11 MILK OF MAGNESIA 400 mg/5 mL suspension TAKE 15ML BY MOUTH DAILY NEEDED FOR CONSTIPATION (FOR NO BOWEL MOVEMENT AFTER 3 Disp: 360 mL Rfl: 5 LANTUS U-100 INSULIN 100 unit/mL injection Give 24 units subq daily at 4 PM or as directed Disp: 10 mL Rfl: 11 potassium chloride ER (K-DUR, KLOR-CON) 20 mEq tablet TAKE 1 TABLET BY MOUTH DAILY Disp: 30 tablet Rfl: 5 Ferrous Gluconate 324 mg (36 mg iron) tab Take 1 tablet by mouth twice daily with meals. Disp: 60 tablet Rfl: 5 COMPOUNDED PRESCRIPTION Please discontinue Tylenol ES 500 mg daily at bedtime Disp: Rfl: aspirin, enteric coated (ASPIRIN, ENTERIC COATED) 325 mg EC tablet Take 1 tablet by mouth once daily. Take with food. Disp: 30 tablet Rfl: 11 furosemide (LASIX) 20 mg tablet Take 1 tablet by mouth once daily. Disp: 90 tablet Rfl: 3 wheat dextrin (BENEFIBER SUGAR FREE, DEXTRIN,) 3 gram/3.8 gram powd Stir 2 teaspoonfuls into 4-8 oz of beverage or soft food daily Disp: Rfl: Cholecalciferol, Vitamin D3, 1,000 unit cap Take 1 capsule by mouth once daily. Disp: Rfl: Insulin Syringe-Needle U-100 (BD INSULIN SYRINGE) 1 mL 28 gauge x 1/2 syrg 10 Units once daily. Disp: 100 Syringe Rfl: 10 FLOVENT DISKUS 250 mcg/actuation dsdv INHALE ONE PUFF BY MOUTH TWICE DAILY DIRECTED Disp: 1 Inhaler Rfl: 12 OMEGA-3 FATTY ACIDS (FISH OIL CONCENTRATE ORAL) Take by mouth once daily. Disp: Rfl: desvenlafaxine ER (PRISTIQ) 50 mg 24 hr tablet Take 50 mg by mouth once daily. Disp: Rfl: Lancets lancets test BS twice daily 2 days a week- dx 250.00 - non-insulin Disp: 100 Each Rfl: 6 risperiDONE orally disintegrating (RISPERDAL M) 2 mg disintegrating tablet Take 2 mg by mouth once daily. Disp: Rfl: blood sugar diagnostic (FREESTYLE LITE STRIPS) test strip test BS twice daily - dx - 250.00 -insulin Yes Disp: 100 Strip Rfl: 6 clonazePAM (KLONOPIN) 1 mg tablet Take 0.5 mg Bid, 1 mg po at HS Disp: Rfl: insulin needles, DISPOSABLE, (PEN NEEDLE) 31 X 5/16 ndle Use one needle per dose. Once per day. Disp: 100 Each Rfl: 11 Blood-Glucose Meter (FREESTYLE LITE METER) monitoring kit Used once daily to check blood sugar. 250.00 Disp: 1 Each Rfl: 0 risperidone (RISPERDAL CONSTA) 50 mg/2 mL INTRAMUSC. injection Inject 2 mL intramuscularly every 2 weeks. Disp: Rfl: 0 ofloxacin (OCUFLOX) 0.3 % ophthalmic solution Use 2 Drops in the left eye every 4 hours for 7 days. Disp: 1 Bottle Rfl: 0 cephALEXin (KEFLEX) 500 mg capsule Take 1 capsule by mouth three times daily for 10 days. Disp: 30 capsule Rfl: 0 STOOL SOFTENER 100 mg capsule TAKE 1 CAPSULE TWICE A DAY (Patient not taking: Reported on 03/16/2018) Disp: 56 capsule Rfl: 3 acetaminophen (TYLENOL EXTRA STRENGTH) 500 mg tablet Take 1 tablet by mouth daily at bedtime. (Patient not taking: Reported on 06/08/2018 ) Disp: 30 tablet Rfl: 11 cloZAPine (CLOZARIL) 100 mg tablet take one tablet at noon, 2 tablets at 3 PM and 3 tablets at Bedtime (Patient not taking: Reported on 07/02/2018 ) Disp: Rfl: 0 albuterol HFA (VENTOLIN HFA) 90 mcg/actuation inhaler Inhale 2 Puffs as instructed every 4 hours as needed for Wheezing/Shortness of Breath. (Patient not taking: Reported on 06/08/2018 ) Disp: 1 Inhaler Rfl: 0 No current facility-administered medications for this visit. PAST SURGICAL HISTORY Procedure Laterality Date - COLONOSCOPY W/BX 12/19/2016 Normal colonoscopy-10 year follow-up - PAST SURGICAL HISTORY OF 1982 corrective jaw surgery - REMOVAL GALLBLADDER 1998 open FAMILY HISTORY Problem Relation Age of Onset - Psychiatry Mother depression - other (lung cancer) Paternal Grandfather - Psychiatry Brother schizophrenia - Diabetes Brother - Hypertension Brother - Psychiatry Sister deperssion Social History Substance Use Topics - Smoking status: Former Smoker Packs/day: 2.00 Years: 20.00 Types: Cigarettes Quit date: 01/11/2014 - Smokeless tobacco: Never Used - Alcohol use No BP 124/74 Pulse 118 Temp 36.3 ?C (97.3 ?F) (Left Tympanic) Resp 16 Wt 87.9 kg (193 lb 12.8 oz) LMP 09/12/2017 SpO2 98% BMI 36.62 kg/m? Objective Physical Exam HENT: Head: Normocephalic and atraumatic. Right Ear: Tympanic membrane, external ear and ear canal normal. Left Ear: Tympanic membrane, external ear and ear canal normal. Nose: Nose normal. Mouth/Throat: Uvula is midline, oropharynx is clear and moist and mucous membranes are normal. Eyes: Pt has thick green discharge coming from the eye. The conjunctiva is injected. She has swelling of the upper eyelid and some to the eyebrow. She denies pain on EOMI and no bulging of the eye. Cardiovascular: Normal rate, regular rhythm and normal heart sounds. Pulmonary/Chest: Effort normal and breath sounds normal. Neurological: She is alert. Skin: Skin is warm and dry. No rash noted. Psychiatric: Affect normal. Nursing note and vitals reviewed. ASSESSMENT/PLAN: 1. Acute bacterial conjunctivitis of left eye - ICD9: 372.03, ICD10: H10.32 - see medication orders- pt given ofloxacin and keflex due to redness extending up to the eyebrow. - course and contagiousness issues discussed, including hand washing. - Instructed to call if high fever, development of periorbital redness or swelling, eye pain, visual changes, concerns or if symptoms persist. Radha Arana PA-C Referring Provider: SELF [[id number]] Allergies As of Date: 07/02/2018 (No Known Allergies) Date Reviewed: 07/02/2018 Reviewed by: Crispin Brown Ma - Fully Assessed Reason for Visit: pink eye in left eye [Other] Primary Visit Diagnosis:Acute bacterial conjunctivitis of left eye [H10.32] Order(s):ofloxacin (OCUFLOX) 0.3 % ophthalmic solutionUse 2 Drops in the left eye every 4 hours for 7 days.Disp: 1 BottleRfl: 0 cephALEXin (KEFLEX) 500 mg capsuleTake 1 capsule by mouth three times daily for 10 days.Disp: 30 capsuleRfl: 0 Prescriptions as of 07/02/2018 Sig: METFORMIN 500 MG TABLET TAKE 2 TABLETS BY MOUTH TWICE* PRAVASTATIN 20 MG TABLET TAKE 1 TABLET BY MOUTH ONCE D* GLIPIZIDE 5 MG TABLET TAKE 1 TABLET TWICE A DAY LUBIPROSTONE 24 MCG CAPSULE Take 1 capsule by mouth twice* MILK OF MAGNESIA 400 MG/5 ML * TAKE 15ML BY MOUTH DAILY N* LANTUS U-100 INSULIN 100 UNIT* Give 24 units subq daily at 4* POTASSIUM CHLORIDE ER 20 MEQ * TAKE 1 TABLET BY MOUTH DAILY FERROUS GLUCONATE 324 MG (36 * Take 1 tablet by mouth twice * COMPOUNDED PRESCRIPTION Please discontinue Tylenol ES* ASPIRIN 325 MG TABLET,DELAYED* Take 1 tablet by mouth once d* FUROSEMIDE 20 MG TABLET Take 1 tablet by mouth once d* WHEAT DEXTRIN 3 GRAM/3.8 GRAM* Stir 2 teaspoonfuls into 4-8 * CHOLECALCIFEROL (VITAMIN D3) * Take 1 capsule by mouth once * INSULIN SYRINGE-NEEDLE U-100 * 10 Units once daily. FLOVENT DISKUS 250 MCG/ACTUAT* INHALE ONE PUFF BY MOUTH TWIC* FISH OIL CONCENTRATE ORAL Take by mouth once daily. DESVENLAFAXINE SUCCINATE ER 5* Take 50 mg by mouth once ziggy* LANCETS test BS twice daily 2 days a * RISPERIDONE 2 MG DISINTEGRATI* Take 2 mg by mouth once daily. BLOOD SUGAR DIAGNOSTIC STRIPS test BS twice daily - dx - 25* CLONAZEPAM 1 MG TABLET Take 0.5 mg Bid, 1 mg po at HS PEN NEEDLE, DIABETIC 31 GAUGE* Use one needle per dose. Once* BLOOD-GLUCOSE METER KIT Used once daily to check bloo* * RISPERIDONE MICROSPHERES 50 M* Inject 2 mL intramuscularly e* OFLOXACIN 0.3 % EYE DROPS Use 2 Drops in the left eye e* CEPHALEXIN 500 MG CAPSULE Take 1 capsule by mouth three* STOOL SOFTENER 100 MG CAPSULE TAKE 1 CAPSULE TWICE A DAY Patient not taking: Reported on 03/16/2018 ACETAMINOPHEN 500 MG TABLET Take 1 tablet by mouth daily * Patient not taking: Reported on 06/08/2018 CLOZAPINE 100 MG TABLET take one tablet at noon, 2 ta* Patient not taking: Reported on 07/02/2018 ALBUTEROL SULFATE HFA 90 MCG/* Inhale 2 Puffs as instructed * Patient not taking: Reported on 06/08/2018 Problem List As Of Date 07/02/2018 Noted Resolved Schizophreniform disorder, chronic condition (H* Priority: Mild More... Other abnormal glucose [R73.09] 04/29/2018 Priority: A More... DM w/o Complication Type II [E11.9] INVALID FOR*02/22/2014 Priority: Moderate Gastritis [K29.70] INVALID FOR* Routine general medical examination at a [facility]*INVALID FOR*11/26/2011 Class: Chronic More... Routine gynecological examination [Z01.419] INVALID FOR*11/26/2011 Class: Chronic More... Vitamin D deficiency [E55.9] INVALID FOR* Priority: A More... Liver Function Test Abnormality [R94.5] INVALID FOR* More... 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 Encounter for screening for malignant neoplasm *INVALID FOR* Postmenopausal bleeding [N95.0] INVALID FOR* More... Acute diastolic CHF (congestive heart failure) *INVALID FOR* More... Obesity, Class II, BMI 35-39.9 [E66.9] INVALID FOR* Prescriptions ordered this encounter Disp Refills Start End OFLOXACIN 0.3 % EYE DROPS 1 Abiodun* 0 07/02/2018 07/09/2018 Route: LEFT EYE Sig: Use 2 Drops in the left eye every 4 hours for 7 days. CEPHALEXIN 500 MG CAPSULE 30 c* 0 07/02/2018 07/12/2018 Route: ORAL Sig: Take 1 capsule by mouth three times daily for 10 days. Encounter Status:Closed by RADHA ARANA PA-C on 07/02/18 PROGRESS Observed: 06/29/2018 Status: COMPLETED Source: [place] 3:12 PM [facility] [place] REPOSITORY HNO ID: [id number] Author: Asia (Rn) Indra Service: (none) Author Type: Registered Nurse Type: Progress Notes Filed: 06/29/2018 3:14 PM Note Text: PRIMARY CARE COORDINATION QUICK NOTE Provider Action/FYI FYI Patient identified by name and date . TC to Gianna at [facility], informed of conversation with CM below and PCP feels pt can decrease therapy to once a week. Gianna states she feels PCC would be better speaking to the PT and she is gone for the day. She will leave a message for PT to call PCC tomorrow. PROGRESS Observed: 06/29/2018 Status: COMPLETED Source: [place] 3:00 PM [facility] [place] REPOSITORY HNO ID: [id number] Author: Boris Jones Service: (none) Author Type: Physician Type: Progress Notes Filed: 07/08/2018 5:09 PM Note Text: Ok to do once a week PROGRESS Observed: 06/29/2018 Status: COMPLETED Source: [place] 1:45 PM [facility] REPOSITORY HNO ID: [id number] Author: Asia (Ramón) Indra Service: (none) Author Type: Registered Nurse Type: Progress Notes Filed: 06/29/2018 1:55 PM Note Text: PRIMARY CARE COORDINATION FOLLOW-UP NOTE Provider Action/FYI Pt not doing PT exercises at home. CM thinks pt feels it is more a social event rather than therapy It is difficult to get pt to therapy 2x/week at the scheduled times. Does PCP feel it is still effective? If so can they just schedule it for once a week? Patient identified by name and date of . YES Spoke to [facility] Imaging Technician Concerns: CM is going to talk to Dr. Chen regarding possibly decreasing clozapine. States pt wasn't drinking that much caffeine, but wanted to increase the amount she was drinking because she is drowsy throughout the day. Pt is going to PT at [facility]. She has 8-10 more appointments scheduled 2 x/week. They are scheduled later in the day and it is difficult to transport pt there at that time. Pt isn't compliant with exercises at home and CM feels pt finds PT to be more of a social event rather than a therapy. CM is asking if PCP feels PT is needed since pt isn't following through with exercises. If PCP wants them to continue can they just be once a week. Savings Teller plan for next outreach: Will follow up as scheduled Signature Asia Burrell RN June 29, 2018 CNPTOUTREACH Observed: 06/29/2018 Status: COMPLETED Source: [place] 12:00 AM [facility] REPOSITORY Patient Outreach (FAMPWS) BRITTNEE LE ([id number]) 1965 F Date Time Provider Department 06/29/18 ASIA BURRELL) CHRISTIAN During your visit today, we recorded the following information about you: Asia Burrell RN 06/29/2018 1:55 PM Signed PRIMARY CARE COORDINATION FOLLOW-UP NOTE Provider Action/FYI Pt not doing PT exercises at home. CM thinks pt feels it is more a social event rather than therapy It is difficult to get pt to therapy 2x/week at the scheduled times. Does PCP feel it is still effective? If so can they just schedule it for once a week? Patient identified by name and date of . YES Spoke to [facility] Imaging Technician Concerns: CM is going to talk to Dr. Chen regarding possibly decreasing clozapine. States pt wasn't drinking that much caffeine, but wanted to increase the amount she was drinking because she is drowsy throughout the day. Pt is going to PT at [facility]. She has 8-10 more appointments scheduled 2 x/week. They are scheduled later in the day and it is difficult to transport pt there at that time. Pt isn't compliant with exercises at home and CM feels pt finds PT to be more of a social event rather than a therapy. CM is asking if PCP feels PT is needed since pt isn't following through with exercises. If PCP wants them to continue can they just be once a week. Savings Teller plan for next outreach: Will follow up as scheduled Signature Asia Burrell RN June 29, 2018 Boris Jones MD 07/08/2018 5:09 PM Signed Ok to do once a week Asia Burrell RN 06/29/2018 3:14 PM Signed PRIMARY CARE COORDINATION QUICK NOTE Provider Estela/CONTRERAS CHAIREZ Patient identified by name and date . TC to Gianna at [facility], informed of conversation with CM below and PCP feels pt can decrease therapy to once a week. Gianna states she feels PCC would be better speaking to the PT and she is gone for the day. She will leave a message for PT to call PCC tomorrow. Asia Burrell RN 07/07/2018 4:54 PM Signed PRIMARY CARE COORDINATION QUICK NOTE Provider Action/CONTRERAS CHAIREZ Patient identified by name and date . TC to [facility] asked them to leave message for PTZeynep to call PCC back. RAMÓN Pennington RN 07/08/2018 2:28 PM Signed PRIMARY CARE COORDINATION FOLLOW-UP NOTE Provider Estela/CONTRERAS Discussed therapy with PT, she feels pt is benefiting by therapy and doesn't want to decrease sessions at this time. Patient identified by name and date of . YES Spoke to Zeynep PT Summary: PT, Zeynep states she feels patient is engaged and participating appropriately with PT. States pt does states she is getting benefit from the therapy and she doesn't want to decrease pt's appointments at this time if okay with PCP. Discussed scheduling patient earlier in the day however that would mean pt could possibly get a different therapist every time. Discussed we both agree that pt is probably better staying with one therapist due to her psych diagnoses. Savings Teller plan for next outreach: Will follow up as scheduled Signature Asia Burrell RN July 08, 2018 Asia Burrell RN 07/08/2018 5:09 PM Signed Discussed below PT therapy plan with PCP, verbalized agreement. 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 Coordinator Chronic Care [3176] Prescriptions as of 06/29/2018 Sig: METFORMIN 500 MG TABLET TAKE 2 TABLETS BY MOUTH TWICE* PRAVASTATIN 20 MG TABLET TAKE 1 TABLET BY MOUTH ONCE D* GLIPIZIDE 5 MG TABLET TAKE 1 TABLET TWICE A DAY LUBIPROSTONE 24 MCG CAPSULE Take 1 capsule by mouth twice* MILK OF MAGNESIA 400 MG/5 ML * TAKE 15ML BY MOUTH DAILY N* LANTUS U-100 INSULIN 100 UNIT* Give 24 units subq daily at 4* POTASSIUM CHLORIDE ER 20 MEQ * TAKE 1 TABLET BY MOUTH DAILY FERROUS GLUCONATE 324 MG (36 * Take 1 tablet by mouth twice * COMPOUNDED PRESCRIPTION Please discontinue Tylenol ES* STOOL SOFTENER 100 MG CAPSULE TAKE 1 CAPSULE TWICE A DAY Patient not taking: Reported on 03/16/2018 ASPIRIN 325 MG TABLET,DELAYED* Take 1 tablet by mouth once d* ACETAMINOPHEN 500 MG TABLET Take 1 tablet by mouth daily * Patient not taking: Reported on 06/08/2018 FUROSEMIDE 20 MG TABLET Take 1 tablet by mouth once d* WHEAT DEXTRIN 3 GRAM/3.8 GRAM* Stir 2 teaspoonfuls into 4-8 * CHOLECALCIFEROL (VITAMIN D3) * Take 1 capsule by mouth once * CLOZAPINE 100 MG TABLET take one tablet at noon, 2 ta* Patient not taking: Reported on 07/02/2018 ALBUTEROL SULFATE HFA 90 MCG/* Inhale 2 Puffs as instructed * Patient not taking: Reported on 06/08/2018 INSULIN SYRINGE-NEEDLE U-100 * 10 Units once daily. FLOVENT DISKUS 250 MCG/ACTUAT* INHALE ONE PUFF BY MOUTH TWIC* FISH OIL CONCENTRATE ORAL Take by mouth once daily. DESVENLAFAXINE SUCCINATE ER 5* Take 50 mg by mouth once ziggy* LANCETS test BS twice daily 2 days a * RISPERIDONE 2 MG DISINTEGRATI* Take 2 mg by mouth once daily. BLOOD SUGAR DIAGNOSTIC STRIPS test BS twice daily - dx - 25* CLONAZEPAM 1 MG TABLET Take 0.5 mg Bid, 1 mg po at HS PEN NEEDLE, DIABETIC 31 GAUGE* Use one needle per dose. Once* BLOOD-GLUCOSE METER KIT Used once daily to check bloo* * RISPERIDONE MICROSPHERES 50 M* Inject 2 mL intramuscularly e* Problem List As Of Date 06/29/2018 Noted Resolved Schizophreniform disorder, chronic condition (H* Priority: Mild More... Other abnormal glucose [R73.09] 04/29/2018 Priority: A More... DM w/o Complication Type II [E11.9] INVALID FOR*02/22/2014 Priority: Moderate Gastritis [K29.70] INVALID FOR* Routine general medical examination at a [facility]*INVALID FOR*11/26/2011 Class: Chronic More... Routine gynecological examination [Z01.419] INVALID FOR*11/26/2011 Class: Chronic More... Vitamin D deficiency [E55.9] INVALID FOR* Priority: A More... Liver Function Test Abnormality [R94.5] INVALID FOR* More... 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 Encounter for screening for malignant neoplasm *INVALID FOR* Postmenopausal bleeding [N95.0] INVALID FOR* More... Acute diastolic CHF (congestive heart failure) *INVALID FOR* More... Obesity, Class II, BMI 35-39.9 [E66.9] INVALID FOR* Encounter Status:Closed by ASIA BURRELL on 07/08/18 PROGRESS Observed: 06/26/2018 Status: COMPLETED Source: [place] 4:28 PM [facility] REPOSITORY HNO ID: [id number] Author: Asia Burrell Service: (none) Author Type: Registered Nurse Type: Progress Notes Filed: 06/26/2018 4:35 PM Note Text: PRIMARY CARE COORDINATION QUICK NOTE Provider Action/FYI TC to [facility] BAUTISTA, pt should not use any caffeine. She shouldn't be using caffeine for her sedation, verbalized understanding. TC to [facility] [place] CM, left message pt should not be taking in any caffeine. If pt is having sedation from her medications PCP suggests speaking to psychiatrist to ask if her medications can be changed. Patient identified by name and date . Asia Burrell RN June 26, 2018 4:28 PM PROGRESS Observed: 06/26/2018 Status: COMPLETED Source: [place] 2:22 PM [facility] REPOSITORY HNO ID: [id number] Author: Boris Jones Service: (none) Author Type: Physician Type: Progress Notes Filed: 06/26/2018 4:35 PM Note Text: None. She should not be using the caffeine because of sedation. PROGRESS Observed: 06/26/2018 Status: COMPLETED Source: [place] 1:00 PM [facility] REPOSITORY HNO ID: [id number] Author: Yesica Laurent MA Service: (none) Author Type: Payroll Accounting Clerk Type: Progress Notes Filed: 06/26/2018 4:35 PM Note Text: Spoke with ezio and they need to know exactly how much caffeine she can have daily to document. Yesica Laurent MA PROGRESS Observed: 06/26/2018 Status: COMPLETED Source: [place] 11:37 AM [facility] REPOSITORY HNO ID: [id number] Author: Boris Jones Service: (none) Author Type: Physician Type: Progress Notes Filed: 06/26/2018 4:35 PM Note Text: Avoid the excess caffeine. I would consider speaking to psych about meds. PROGRESS Observed: 06/26/2018 Status: COMPLETED Source: [place] 10:23 AM [facility] REPOSITORY HNO ID: [id number] Author: Asia Crews) Indra Service: (none) Author Type: Registered Nurse Type: Progress Notes Filed: 06/26/2018 10:45 AM Note Text: PRIMARY CARE COORDINATION FOLLOW-UP NOTE Provider Action/FYI Pt drinking 1-2 cups of caffeinated tea or coffee during day to help with drowsiness from clonazapine. CM and CGs worried pt is having too much caffeine. Pt not having any side effects. They want to ask if this is okay with PCP Pt depressed at times because [place] and live with her family but for most of time functions well at intermediate. Patient identified by name and date of . YES Spoke to [facility] Summary: Pt takes cloZAPine 100 mg one tablet at noon, 2 tablets at 3 PM and 3 tablets at Bedtime. She gets drowsy from medication and drinks one to two cups of caffeinated tea or coffee per day [facility] CM and CGs are concerned she was drinking too much caffeine. Pt doesn't show signs of nervousness, anxiety or jitters with caffeine. CG also talked about patient's family and pt sees family twice a week for meals outside intermediate. Savings Teller plan for next outreach: Will follow up one month Signature Asia Burrell RN June 26, 2018 CNPTOUTREACH Observed: 06/26/2018 Status: COMPLETED Source: [place] 12:00 AM [facility] REPOSITORY Patient Outreach (FAMPWS) BRITTNEE LE ([id number]) 1965 F Date Time Provider Department 06/26/18 ASAI BURRELL) CHRISTIAN During your visit today, we recorded the following information about you: Asia Burrell RN 06/26/2018 10:45 AM Signed PRIMARY CARE COORDINATION FOLLOW-UP NOTE Provider Action/FYI Pt drinking 1-2 cups of caffeinated tea or coffee during day to help with drowsiness from clonazapine. CM and CGs worried pt is having too much caffeine. Pt not having any side effects. They want to ask if this is okay with PCP Pt depressed at times because she would like to go back to the farm and live with her family but for most of time functions well at intermediate. Patient identified by name and date of . YES Spoke to jail Ezio BAUTISTA Summary: Pt takes cloZAPine 100 mg one tablet at noon, 2 tablets at 3 PM and 3 tablets at Bedtime. She gets drowsy from medication and drinks one to two cups of caffeinated tea or coffee per day [facility] CM and CGs are concerned she was drinking too much caffeine. Pt doesn't show signs of nervousness, anxiety or jitters with caffeine. CG also talked about patient's family and pt sees family twice a week for meals outside intermediate. Savings Teller plan for next outreach: Will follow up one month Signature Asia Burrell RN June 26, 2018 Boris Jones MD 06/26/2018 4:35 PM Signed Avoid the excess caffeine. I would consider speaking to psych about meds. Yesica Laurent MA, MA 06/26/2018 4:35 PM Signed Spoke with ezio and they need to know exactly how much caffeine she can have daily to document. RADHA Avilez MD 06/26/2018 4:35 PM Signed None. She should not be using the caffeine because of sedation. Asia Burrell RN 06/26/2018 4:35 PM Addendum PRIMARY CARE COORDINATION QUICK NOTE Provider Action/FYI TC to Ezio BAUTISTA, pt should not use any caffeine. She shouldn't be using caffeine for her sedation, verbalized understanding. TC to [place], [facility], left message pt should not be taking in any caffeine. If pt is having sedation from her medications PCP suggests speaking to psychiatrist to ask if her medications can be changed. Patient identified by name and date . 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 Chronic Care [3612] Prescriptions as of 06/26/2018 Sig: METFORMIN 500 MG TABLET TAKE 2 TABLETS BY MOUTH TWICE* PRAVASTATIN 20 MG TABLET TAKE 1 TABLET BY MOUTH ONCE D* GLIPIZIDE 5 MG TABLET TAKE 1 TABLET TWICE A DAY LUBIPROSTONE 24 MCG CAPSULE Take 1 capsule by mouth twice* MILK OF MAGNESIA 400 MG/5 ML * TAKE 15ML BY MOUTH DAILY N* LANTUS U-100 INSULIN 100 UNIT* Give 24 units subq daily at 4* POTASSIUM CHLORIDE ER 20 MEQ * TAKE 1 TABLET BY MOUTH DAILY FERROUS GLUCONATE 324 MG (36 * Take 1 tablet by mouth twice * COMPOUNDED PRESCRIPTION Please discontinue Tylenol ES* STOOL SOFTENER 100 MG CAPSULE TAKE 1 CAPSULE TWICE A DAY Patient not taking: Reported on 03/16/2018 ASPIRIN 325 MG TABLET,DELAYED* Take 1 tablet by mouth once d* ACETAMINOPHEN 500 MG TABLET Take 1 tablet by mouth daily * Patient not taking: Reported on 06/08/2018 FUROSEMIDE 20 MG TABLET Take 1 tablet by mouth once d* WHEAT DEXTRIN 3 GRAM/3.8 GRAM* Stir 2 teaspoonfuls into 4-8 * CHOLECALCIFEROL (VITAMIN D3) * Take 1 capsule by mouth once * CLOZAPINE 100 MG TABLET take one tablet at noon, 2 ta* ALBUTEROL SULFATE HFA 90 MCG/* Inhale 2 Puffs as instructed * Patient not taking: Reported on 06/08/2018 INSULIN SYRINGE-NEEDLE U-100 * 10 Units once daily. FLOVENT DISKUS 250 MCG/ACTUAT* INHALE ONE PUFF BY MOUTH TWIC* FISH OIL CONCENTRATE ORAL Take by mouth once daily. DESVENLAFAXINE SUCCINATE ER 5* Take 50 mg by mouth once ziggy* LANCETS test BS twice daily 2 days a * RISPERIDONE 2 MG DISINTEGRATI* Take 2 mg by mouth once daily. BLOOD SUGAR DIAGNOSTIC STRIPS test BS twice daily - dx - 25* CLONAZEPAM 1 MG TABLET Take 0.5 mg Bid, 1 mg po at HS PEN NEEDLE, DIABETIC 31 GAUGE* Use one needle per dose. Once* BLOOD-GLUCOSE METER KIT Used once daily to check bloo* * RISPERIDONE MICROSPHERES 50 M* Inject 2 mL intramuscularly e* Problem List As Of Date 06/26/2018 Noted Resolved Schizophreniform disorder, chronic condition (H* Priority: Mild More... Other abnormal glucose [R73.09] 04/29/2018 Priority: A More... DM w/o Complication Type II [E11.9] INVALID FOR*02/22/2014 Priority: Moderate Gastritis [K29.70] INVALID FOR* Routine general medical examination at a health*INVALID FOR*11/26/2011 Class: Chronic More... Routine gynecological examination [Z01.419] INVALID FOR*11/26/2011 Class: Chronic More... Vitamin D deficiency [E55.9] INVALID FOR* Priority: A More... Liver Function Test Abnormality [R94.5] INVALID FOR* More... 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 Encounter for screening for malignant neoplasm *INVALID FOR* Postmenopausal bleeding [N95.0] INVALID FOR* More... Acute diastolic CHF (congestive heart failure) *INVALID FOR* More... Obesity, Class II, BMI 35-39.9 [E66.9] INVALID FOR* Encounter Status:Closed by ASIA BURRELL on 06/26/18 RE-EVALUATION - PT (1) Observed: 06/25/2018 Status: F Source: [place] 9:00 AM [facility] REPOSITORY [facility] [address] [place] [address]. [address] [place], [place] [id number] Fax REEVALUATION / MEDICARE RECERTIFICATION PHYSICAL THERAPY MR#: [id number] Acct: [id number] Name: BRITTNEE LE Rep #: [id number] : 1965 52 From: Zeynep Phan PT, Cert. T Referring Dr.: Boris Jones MD Status: REG RCR Insurance: [employer] MEDICAID Boris Jones, It has been my pleasure to treat BRITTNEE LE over the last 8 visits for LOW BACK PAIN M54.5. Please see the progress note below for an update on the physical therapy plan of care! Subjective: PATIENT REPORTS PT IS HELPING AND SHE WOULD LIKE TO CONTINUE. PATIENT REPORTS NO PAIN RIGHT NOW BUT UP TO 5/10 LEFT LOW BACK/HIP PAIN YESTERDAY DRESSING AFTER GETTIN OUT OF THE SHOWER. Objective/Function: PATIENT IS MAKING SLOW PROGRESS TOWARD ALL PT GOALS. UPON EXAM TODAY: PATIENT DEMONSTRATES SLOW GAIT INTO PT WITHOUT LOB AND WITHOUT ANY ASSISTIVE DEVICES. DECREASED ASHELY STRIDE LENGTH AND TRUNK ROTATION. PATIENT IS ABLE TO EASILY TRANSFER FROM SIT TO STAND WITHOUT UE ASSIST. Motor deficit: ASHELY LE STRENGTH 5/5 WITH MMT'ING EXCEPT HIPS GRADED 4/5. Sensory deficit: ASHELY LE LIGHT TOUCH SENSATION APPEARS TO BE INTACT AND SYMMETRICAL BUT FEET NT. Dural Signs: NEGATIVE ASHELY LE'S. Lumbar mvmt loss: flex - NIL. ext - MOD. R SG - MONICA. L SG - MONICA. PATIENT REPORTS MILD LBP WITH LUMBAR FLEX ROM TESTING. Core strength: POOR. Palpation: NO ACUTE TENDERNESS WITH PALPATION OF THORACIC OR LUMBAR SPINE. NO ACUTE HIP TENDERNESS. OTHER: ASHELY UE ROM IS WFL. ASHELY UE STRENGTH IS GROSSLY 4/5 WITH MMT'ING. PATIENT IS UNABLE TO SLS ON EITHER LEG FOR MORE THAN A FEW SECONDS WITHOUT UE ASSIST. LUMBAR OSWESTRY SCORE HAS IMPROVED FROM 19 TO 11. PATIENT WILL NEED HEP REINFORCEMENT. Plan Plan: *CONTINUE TO ADD TO WRITTEN HEP* CONT PT 2X'S A WEEK FOR POSTURE CORRECTION AND STRENGTHEING. INSTRUCT IN PROPER BODY MECHANICS. DLS WITH A NEUTRAL SPINE IN STANDING. ASHELY LE ROM, STRETCHING AND STRENGTHEING. BALANCE ACTIVITIES. Goals Goal 1:: DECREASE C/O BACK AND LEG SX'S. Goal Time Frame: 4-6 Weeks Goal Progress: Progressing Goal 2:: IMPROVE STANDING, WALKING, SOCIAL LIFE AND HOMEMAKING FUNCTION Goal Time Frame: 4-6 Weeks Goal Progress: Progressing Goal 3:: INSTRUCT IN PROPHYLAXIS Goal Time Frame: 4-6 Weeks Goal Progress: Progressing Anticipated Interventions Patient/Client Instruction: Educate patient on: Condition, Plan of Care, Risk Factors, Benefits of Fitness Program For the Purpose of:: To facilitate caregiver knowledge, To improve self management Therapeutic Exercise to Include: Strength training, Endurance training, Body mechanics, Postural training, Flexibilty training, Active ROM, Dynamic Lumbar Stabilization For the Purpose of:: To decrease pain, To increase ROM, To improve muscle performance and motor function, To increase tolerance to activity/condition/position, To improve ability of physical actions for home/community/work/leisure, To improve gait and locomotor functions Cryotherapy (ice pack, ice massage): Yes Thermo therapy (hot pack): Yes Ultrasound (thermal/non thermal): Yes For the Purpose of:: To decrease pain, To increase ROM, To improve nutrient delivery to tissue Please do not hesitate to contact me at [phone] by phone or if you have questions or concerns regarding this new plan of care! Sincerely, Zeynep Phan <Electronically signed by Zeynep Phan PT, Cert. MDT> 06/25/18 0900 CC: Boris Jones MD MARGOT Signed For Medicare only, by signing this I certify the plan of care. Physicians Signature Date PROGRESS Observed: 06/19/2018 Status: COMPLETED Source: [place] 9:59 AM [facility] REPOSITORY O ID: [id number] Author: Asia (Rn) Indra Service: (none) Author Type: Registered Nurse Type: Progress Notes Filed: 06/19/2018 10:18 AM Note Text: PRIMARY CARE COORDINATION FOLLOW-UP NOTE Provider Action/FYI Please note BS Weight is stable at 193 Cough only when new CGs come on duty Patient identified by name and date of . YES Spoke to MICHELE Holguin at [facility] Summary: Brittnee Le is a 52 year old female who reports glucose readings as noted. DATE 06/19 06/18 06/17 06/16 06/15 06/14 06/13 Fasting 170 161 150 145 148 125 154 4 PM 219 86 140 122 127 162 Any low blood sugars during this period of reporting No Discussed treatment with BS 70 or below and if low BS call PCC, verbalized understanding. Patient's diabetes medications as follows: LANTUS U-100 INSULIN 100 unit/mL 24 units subq daily at 4 PM or as directed metFORMIN (GLUCOPHAGE) 500 mg TAKE 2 TABLETS BY MOUTH TWICE DAILY WITH MEALS. . glipiZIDE (GLUCOTROL) 5 mg TAKE 1 TABLET TWICE A DAY Pt's weight staying within 2-3 lbs Today [id number] No cough Savings Teller plan for next outreach: Will follow up one month Signature Asia Burrell RN June 19, 2018 PROGRESS Observed: 06/19/2018 Status: COMPLETED Source: [place] 9:55 AM [facility] REPOSITORY [facility] ID: [id number] Author: Asia (Ramón) Indra Service: (none) Author Type: Registered Nurse Type: Progress Notes Filed: 06/19/2018 10:40 AM Note Text: PRIMARY CARE COORDINATION INTAKE Provider Action/FYI: FYI Patient identified for Primary Care Coordination from: TCM Active Goals - Current status as of 06/19/2018 at 10:40 AM Most Recent - Address all appropriate HM and disease care gaps - Annual BMP - Annual foot exam - Annual microalbumin - Annual retina exam - Blood Pressure < 130/80 115/75 (06/08/2018) - Check weight daily - Confirm medication adherence of all prescribed medications and uses them correctly - Demonstrates proper inhaler technique - Has a plan for unexpected weight gain - HBA1C drawn quarterly - Hemoglobin A1C < 7 Test sent to [facility]. (04/30/2018) - Improve Breathlessness Score - LDL at or below 100 mg/dL or on a high statin - Understands and follows a low salt diet - Uses rescue inhaler at appropriate times - Weight mgmt/activity Health Maintenance Topics with due status: Overdue Topic Date Due HPV EVERY 5 YEARS 10/03/2014 DIABETIC FOOT EXAM 05/08/2018 Health Maintenance Topics with due status: Due On Topic Date Due INFLUENZA 06/13/2018 Care Coordination: General Care Coordination (since 03/21/2018) Patient has been identified by name and date of Y Determined High Risk due to High Risk chronic condition; Polypharmacy ( > 7meds); High Risk medications (anticoagulants, insulin, narcotics, ect.) Chronic High Risk conditions CHF; COPD; DM; Hyperlipidemia Assessment completed with Paid caregiver Living arrangement -- (Lives in non-skilled [facility]) Support system statistics manager; Therapist (unskilled CGs) What is the health status of your caregiver? Excellent Are there others that you care for? No Type of residence jail Home care services No Have you had a safety assessment of your home? Yes Equipment used at home None Do you have any assistive devices to help you communicate? No Communication Barriers Other (Enter Comment) (Schizophreniform disorder) Have you been in any hospital and/or ED outside the [facility] in the Past 6 months? No I feel financially burdened by my out of pocket expenses for my prescription medication -- (On [employer] and Medicaid) Experiencing side effects from current medications No Difficulty keeping appointments No Family aware of the patient's advance care planning wishes -- (Legal Guardian and Imaging Technician aware) Jain or spiritual beliefs that impact treatment No Chronic pain No Advance Directives discussion was initiated with the pt. The following actions were taken HCPOA completed and scanned Social Determinants: Education (since 03/21/2018) Who is providing Assessment Info? Caregiver Health Literacy (since 03/21/2018) How often do you need to have someone help you when you read instructions, pamphlets, or other written material from your doctor or pharmacy? 5 How confident are you filling out medical forms by yourself? 5 If patient scores >3 on either question, the following interventions were put into place Other (Enter in Comments) (Imaging Technician or Legal Guardian completes) How best do you like to receive information? Verbal Resource Strain (since 03/21/2018) In the last 12 months, did you ever eat less than you felt you should because there wasn?t enough money for food? No In the last 12 months, has your [employer] shut off your service for not paying bills? No Are you worried that in the next 2 months, you may not have stable housing? No Do problems getting child, senior, or adult care make it difficult for you to work or study? No In the last 12 months, have you needed to see a doctor but could not because of cost? No Are you afraid you might be hurt in your apartment building or house? No Are any of your needs urgent? No Depression (since 03/21/2018) None Diet (since 03/21/2018) Diet: Diabetic diet; DASH; Low Cholesterol Number of meals per day 3 Physical Activity (since 03/21/2018) None Tobacco Use (since 03/21/2018) Tobacco Outreach Does not Use Tobacco Alcohol Use (since 03/21/2018) How often do you have a drink containing alcohol? Never Social Connection and Isolation (since 03/21/2018) Are you now , , , , never or living with a partner? Not asked In a typical week, how many times do you talk on the telephone with family, friends, or neighbors? -- (Lives in [facility]) How often do you get together with friends or relatives? -- (Lives in [facility]) How often do you attend meeting for clubs, davin-based organizations, or other social groups? -- (Lives in [facility]) Intimate Partner Violence (since 03/21/2018) Has there ever been a time that you had safety concerns? No Stress (since 03/21/2018) None Food Insecurity (since 03/21/2018) Within the past 12 months, you worried that your food would run out before you got money to buy more. Never true Within the past 12 months, the food you bought just didn't last and you didn't have money to get more. Never true Transportation Needs (since 03/21/2018) In the past 12 months, has lack of transportation kept you from medical appointments or from getting medications? No In the past 12 months, has lack of transportation kept you from meetings, work, or getting things needed for daily living? No (Lives in [facility]) Transportation means: Regular Car ([facility] transports) Activities of Daily Living: Patients can perform the following activities without help: (since 03/21/2018) Dressing Yes Bathing Yes Doing laundry Yes Climbing a flight of stairs Yes Walking briskly Yes Instrumental activities of daily living (since 03/21/2018) Do you drive a car? No Do you need help from others to take care of things inside the house, for example: laundry, house cleaning, preparing meals? Yes Did you have the help you needed? Yes Do you need help from others with errands outside the house, for example: shopping for groceries or clothes, going medical appointments? Yes Did you have the help you needed? Yes Fall Risk: Fall Risk (since 03/21/2018) One or more falls in the last year: No Any near falls in the last year? No Advised to use a cane or walker to get around safely: No Feels unsteady when walking: No Steadies self on furniture while walking at home: No Worried about falling: No Needs to push with hands when rising from a chair: No Has trouble stepping up onto a curb: No Often has to couch to the toilet: No Has lost some feeling in feet: No Takes medicine that makes him/her feel lightheaded or more tired than usual: No Takes medicine to sleep or improve mood: No Fall risk factors: Psychoactive medications/medications with anticholinergic effects Asia Burrell RN CNPTOUTREACH Observed: 06/19/2018 Status: COMPLETED Source: [place] 12:00 AM [facility] REPOSITORY Patient Outreach (FAMPWS) REYBRITTNEE Shawanda ([id number]) 1965 F Date Time Provider Department 06/19/18 ASIA BRURELL (RN) [facility] During your visit today, we recorded the following information about you: Asia Burrell RN 06/19/2018 10:40 AM Signed PRIMARY CARE COORDINATION INTAKE Provider Action/FYI: FYI Patient identified for Primary Care Coordination from: TCM Active Goals - Current status as of 06/19/2018 at 10:40 AM Most Recent - Address all appropriate HM and disease care gaps - Annual BMP - Annual foot exam - Annual microalbumin - Annual retina exam - Blood Pressure < 130/80 115/75 (06/08/2018) - Check weight daily - Confirm medication adherence of all prescribed medications and uses them correctly - Demonstrates proper inhaler technique - Has a plan for unexpected weight gain - HBA1C drawn quarterly - Hemoglobin A1C < 7 Test sent to [facility]. (04/30/2018) - Improve Breathlessness Score - LDL at or below 100 mg/dL or on a high statin - Understands and follows a low salt diet - Uses rescue inhaler at appropriate times - Weight mgmt/activity Health Maintenance Topics with due status: Overdue Topic Date Due HPV EVERY 5 YEARS 10/03/2014 DIABETIC FOOT EXAM 05/08/2018 Health Maintenance Topics with due status: Due On Topic Date Due INFLUENZA 06/13/2018 Care Coordination: General Care Coordination (since 03/21/2018) Patient has been identified by name and date of Y Determined High Risk due to High Risk chronic condition; Polypharmacy ( > 7meds); High Risk medications (anticoagulants, insulin, narcotics, ect.) Chronic High Risk conditions CHF; COPD; DM; Hyperlipidemia Assessment completed with Paid caregiver Living arrangement -- (Lives in non-skilled [facility]) Support system statistics manager; Therapist (unskilled CGs) What is the health status of your caregiver? Excellent Are there others that you care for? No Type of residence jail Home care services No Have you had a safety assessment of your home? Yes Equipment used at home None Do you have any assistive devices to help you communicate? No Communication Barriers Other (Enter Comment) (Schizophreniform disorder) Have you been in any hospital and/or ED outside the [facility] in the Past 6 months? No I feel financially burdened by my out of pocket expenses for my prescription medication -- (On [employer] and Medicaid) Experiencing side effects from current medications No Difficulty keeping appointments No Family aware of the patient's advance care planning wishes -- (Legal Guardian and Imaging Technician aware) Jain or spiritual beliefs that impact treatment No Chronic pain No Advance Directives discussion was initiated with the pt. The following actions were taken HCPOA completed and scanned Social Determinants: Education (since 03/21/2018) Who is providing Assessment Info? Caregiver Health Literacy (since 03/21/2018) How often do you need to have someone help you when you read instructions, pamphlets, or other written material from your doctor or pharmacy? 5 How confident are you filling out medical forms by yourself? 5 If patient scores >3 on either question, the following interventions were put into place Other (Enter in Comments) (Imaging Technician or Legal Guardian completes) How best do you like to receive information? Verbal Resource Strain (since 03/21/2018) In the last 12 months, did you ever eat less than you felt you should because there wasn?t enough money for food? No In the last 12 months, has your [employer] shut off your service for not paying bills? No Are you worried that in the next 2 months, you may not have stable housing? No Do problems getting child, senior, or adult care make it difficult for you to work or study? No In the last 12 months, have you needed to see a doctor but could not because of cost? No Are you afraid you might be hurt in your apartment building or house? No Are any of your needs urgent? No Depression (since 03/21/2018) None Diet (since 03/21/2018) Diet: Diabetic diet; DASH; Low Cholesterol Number of meals per day 3 Physical Activity (since 03/21/2018) None Tobacco Use (since 03/21/2018) Tobacco Outreach Does not Use Tobacco Alcohol Use (since 03/21/2018) How often do you have a drink containing alcohol? Never Social Connection and Isolation (since 03/21/2018) Are you now , , , , never or living with a partner? Not asked In a typical week, how many times do you talk on the telephone with family, friends, or neighbors? -- (Lives in [facility]) How often do you get together with friends or relatives? -- (Lives in [facility]) How often do you attend meeting for clubs, davin-based organizations, or other social groups? -- (Lives in [facility]) Intimate Partner Violence (since 03/21/2018) Has there ever been a time that you had safety concerns? No Stress (since 03/21/2018) None Food Insecurity (since 03/21/2018) Within the past 12 months, you worried that your food would run out before you got money to buy more. Never true Within the past 12 months, the food you bought just didn't last and you didn't have money to get more. Never true Transportation Needs (since 03/21/2018) In the past 12 months, has lack of transportation kept you from medical appointments or from getting medications? No In the past 12 months, has lack of transportation kept you from meetings, work, or getting things needed for daily living? No (Lives in [facility]) Transportation means: Regular Car ([facility] transports) Activities of Daily Living: Patients can perform the following activities without help: (since 03/21/2018) Dressing Yes Bathing Yes Doing laundry Yes Climbing a flight of stairs Yes Walking briskly Yes Instrumental activities of daily living (since 03/21/2018) Do you drive a car? No Do you need help from others to take care of things inside the house, for example: laundry, house cleaning, preparing meals? Yes Did you have the help you needed? Yes Do you need help from others with errands outside the house, for example: shopping for groceries or clothes, going medical appointments? Yes Did you have the help you needed? Yes Fall Risk: Fall Risk (since 03/21/2018) One or more falls in the last year: No Any near falls in the last year? No Advised to use a cane or walker to get around safely: No Feels unsteady when walking: No Steadies self on furniture while walking at home: No Worried about falling: No Needs to push with hands when rising from a chair: No Has trouble stepping up onto a curb: No Often has to couch to the toilet: No Has lost some feeling in feet: No Takes medicine that makes him/her feel lightheaded or more tired than usual: No Takes medicine to sleep or improve mood: No Fall risk factors: Psychoactive medications/medications with anticholinergic effects RAMÓN Pennington RN 06/19/2018 10:18 AM Addendum PRIMARY CARE COORDINATION FOLLOW-UP NOTE Provider Action/FYI Please note BS Weight is stable at 193 Cough only when new CGs come on duty Patient identified by name and date of . YES Spoke to MICHELE Holguin at [facility] Summary: Brittnee Le is a 52 year old female who reports glucose readings as noted. DATE 06/19 06/18 06/17 06/16 06/15 06/14 06/13 Fasting 170 161 150 145 148 125 154 4 PM 219 86 140 122 127 162 Any low blood sugars during this period of reporting No Discussed treatment with BS 70 or below and if low BS call PCC, verbalized understanding. Patient's diabetes medications as follows: LANTUS U-100 INSULIN 100 unit/mL 24 units subq daily at 4 PM or as directed metFORMIN (GLUCOPHAGE) 500 mg TAKE 2 TABLETS BY MOUTH TWICE DAILY WITH MEALS. . glipiZIDE (GLUCOTROL) 5 mg TAKE 1 TABLET TWICE A DAY Pt's weight staying within 2-3 lbs Today WT-[id number] No cough Savings Teller plan for next outreach: Will follow up one month Signature Asia Burrell RN June 19, 2018 Allergies As of Date: 06/19/2018 (No Known Allergies) Date Reviewed: 06/08/2018 Reviewed by: Gopi Mitchell RN - Fully Assessed Reason for Visit: Patient Accounts Coordinator Chronic Care [2592] Prescriptions as of 06/19/2018 Sig: METFORMIN 500 MG TABLET TAKE 2 TABLETS BY MOUTH TWICE* PRAVASTATIN 20 MG TABLET TAKE 1 TABLET BY MOUTH ONCE D* GLIPIZIDE 5 MG TABLET TAKE 1 TABLET TWICE A DAY LUBIPROSTONE 24 MCG CAPSULE Take 1 capsule by mouth twice* MILK OF MAGNESIA 400 MG/5 ML * TAKE 15ML BY MOUTH DAILY N* LANTUS U-100 INSULIN 100 UNIT* Give 24 units subq daily at 4* POTASSIUM CHLORIDE ER 20 MEQ * TAKE 1 TABLET BY MOUTH DAILY FERROUS GLUCONATE 324 MG (36 * Take 1 tablet by mouth twice * COMPOUNDED PRESCRIPTION Please discontinue Tylenol ES* STOOL SOFTENER 100 MG CAPSULE TAKE 1 CAPSULE TWICE A DAY Patient not taking: Reported on 03/16/2018 ASPIRIN 325 MG TABLET,DELAYED* Take 1 tablet by mouth once d* ACETAMINOPHEN 500 MG TABLET Take 1 tablet by mouth daily * Patient not taking: Reported on 06/08/2018 FUROSEMIDE 20 MG TABLET Take 1 tablet by mouth once d* WHEAT DEXTRIN 3 GRAM/3.8 GRAM* Stir 2 teaspoonfuls into 4-8 * CHOLECALCIFEROL (VITAMIN D3) * Take 1 capsule by mouth once * CLOZAPINE 100 MG TABLET take one tablet at noon, 2 ta* ALBUTEROL SULFATE HFA 90 MCG/* Inhale 2 Puffs as instructed * Patient not taking: Reported on 06/08/2018 INSULIN SYRINGE-NEEDLE U-100 * 10 Units once daily. FLOVENT DISKUS 250 MCG/ACTUAT* INHALE ONE PUFF BY MOUTH TWIC* FISH OIL CONCENTRATE ORAL Take by mouth once daily. DESVENLAFAXINE SUCCINATE ER 5* Take 50 mg by mouth once ziggy* LANCETS test BS twice daily 2 days a * RISPERIDONE 2 MG DISINTEGRATI* Take 2 mg by mouth once daily. BLOOD SUGAR DIAGNOSTIC STRIPS test BS twice daily - dx - 25* CLONAZEPAM 1 MG TABLET Take 0.5 mg Bid, 1 mg po at HS PEN NEEDLE, DIABETIC 31 GAUGE* Use one needle per dose. Once* BLOOD-GLUCOSE METER KIT Used once daily to check bloo* * RISPERIDONE MICROSPHERES 50 M* Inject 2 mL intramuscularly e* Problem List As Of Date 06/19/2018 Noted Resolved Schizophreniform disorder, chronic condition (H* Priority: Mild More... Other abnormal glucose [R73.09] 04/29/2018 Priority: A More... DM w/o Complication Type II [E11.9] INVALID FOR*02/22/2014 Priority: Moderate Gastritis [K29.70] INVALID FOR* Routine general medical examination at a health*INVALID FOR*11/26/2011 Class: Chronic More... Routine gynecological examination [Z01.419] INVALID FOR*11/26/2011 Class: Chronic More... Vitamin D deficiency [E55.9] INVALID FOR* Priority: A More... Liver Function Test Abnormality [R94.5] INVALID FOR* More... 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 Encounter for screening for malignant neoplasm *INVALID FOR* Postmenopausal bleeding [N95.0] INVALID FOR* More... Acute diastolic CHF (congestive heart failure) *INVALID FOR* More... Obesity, Class II, BMI 35-39.9 [E66.9] INVALID FOR* Encounter Status:Closed by ASIA BURRELL on 06/19/18 IRON AND TIBC Collected: 06/17/2018 Status: F Source: [place] 1:10 PM [facility] REPOSITORY TYPE CODE TESTS RESULT OUT OF REFERENCE UNITS RANGE LAB IRN 41-186 ug/dL Iron 46 LAB TIBC 232-386 ug/dL TIBC 355 LAB SAT 15-57 % Low Transferrin Saturatn 13 Performed By: #### IRON #### [facility] [address], [place] [address] CBC W/DIFF, AUTOMATED Collected: 06/09/2018 Status: F Source: [place] 9:28 AM [facility] REPOSITORY TYPE CODE TESTS RESULT OUT OF RANGE REFERENCE UNITS LAB L100.1000 4.4-11.0 K/mm3 Normal WBC 9.9 LAB L100.1200 4.2-5.4 M/mm3 Normal RBC 4.54 LAB L100.1300 12.0-15.0 g/dl Normal HGB 12.8 LAB L100.1400 37-47 % Normal HCT 40.5 LAB L100.1500 81-99 fL Normal MCV 89.2 LAB L100.1600 27.0-32.0 pg Normal MCH 28.2 LAB L100.1700 32-36 g/gl Low MCHC 31.6 LAB L100.1810 11.6-14.6 % Normal RDW CV 14.4 LAB L100.1820 35.1-43.9 fl High RDW SD 46.6 LAB L100.1900 150-450 K/mm3 Normal PLT 208 LAB L100.2000 6.2-12.0 fl Normal MPV 10.3 LAB L100.2100 47-70 % Normal NEUT% 69.0 LAB L100.2200 19-41 % Normal LY% 23.3 LAB L100.2300 0-10 % Normal MONO% 7.5 LAB L100.2400 0-5 % Normal EO% 0.0 LAB L100.2500 0-1 % Normal BASO% 0.1 LAB L100.2550 0.0-0.9 % Normal IM GRAN % 0.100 Result Comment: IG% - Immature Granulocytes (promyelocytes, myelocytes and metamyelocytes) > 1% indicates that a LEFT SHIFT is Present. LAB L100.2620 2.0-7.7 X10 3/uL Normal Absolute Neut 6.8 LAB L100.2720 0.83-4.51 X10 3/ul Normal Absolute Lymph 2.31 Performed By: #### L100.0100 #### [facility] [address] [place] [address]. [place], [address] PROGRESS Observed: 06/08/2018 Status: COMPLETED Source: [place] 2:15 PM [facility] REPOSITORY O ID: [id number] Author: Ruben Amaya Service: (none) Author Type: Physician Type: Progress Notes Filed: 06/08/2018 5:37 PM Note Text: PERTINENT CARDIAC HISTORY Near syncope Palpitations HL HTN Tachycardia DM LIDA - CPAP CHF - diastolic if any ADHERENCE TO GUIDELINES CESIA-I or ARB for HF with prior LVEF<40 (NQF 0081) - N/A ASA or Plavix for ASHD (NQF 0067) - N/A Beta harika for ASHD with prior KS or prior LVEF<40 (NQF 0070) - N/A Beta harika for HF with prior LVEF<40 (NQF 0083) - N/A CESIA-I or ARB for ASHD with DM or prior LVEF<40 (NQF 0066) - N/A Statin therapy for ASHD or FHL or DM - met BMI documented and plan if >25 (NQF 0421) - lifestyle recommendation form Tobacco use screening and referral (NQF 0028) - lifestyle recommendation form Recommendation for whole food, plant based diet - lifestyle recommendation form CLINICAL IMPRESSION/PLAN: Brittnee Le is doing well. She has persistent sinus tachycardia but well-preserved LV function She will continue her current medication. I've asked her to call if she has increase shortness of breath or chest discomfort. I will see her in 8 months or as needed Written and verbal health teaching given to patient, patient verbalizes understanding and agrees with treatment plan. DIAGNOSIS FOR VISIT: Tachycardia HISTORY OF PRESENT ILLNESS Brittnee Le returns for follow-up of her tachycardia. She reports stable exercise tolerance. Per canvas baster, she has had no recent complaints. She's had no chest discomfort. She denies edema, syncope, palpitations, TIAs, amaurosis and claudication. ALLERGIES: ALLERGIES No Known Allergies CURRENT OUTPATIENT MEDICATIONS: metFORMIN (GLUCOPHAGE) 500 mg tablet TAKE 2 TABLETS BY MOUTH TWICE DAILY WITH MEALS. . pravastatin (PRAVACHOL) 20 mg tablet TAKE 1 TABLET BY MOUTH ONCE DAILY. glipiZIDE (GLUCOTROL) 5 mg tablet TAKE 1 TABLET TWICE A DAY lubiprostone (AMITIZA) 24 mcg capsule Take 1 capsule by mouth twice daily with meals. MILK OF MAGNESIA 400 mg/5 mL suspension TAKE 15ML BY MOUTH DAILY NEEDED FOR CONSTIPATION (FOR NO BOWEL MOVEMENT AFTER 3 LANTUS U-100 INSULIN 100 unit/mL injection Give 24 units subq daily at 4 PM or as directed potassium chloride ER (K-DUR, KLOR-CON) 20 mEq tablet TAKE 1 TABLET BY MOUTH DAILY Ferrous Gluconate 324 mg (36 mg iron) tab Take 1 tablet by mouth twice daily with meals. aspirin, enteric coated (ASPIRIN, ENTERIC COATED) 325 mg EC tablet Take 1 tablet by mouth once daily. Take with food. furosemide (LASIX) 20 mg tablet Take 1 tablet by mouth once daily. wheat dextrin (BENEFIBER SUGAR FREE, DEXTRIN,) 3 gram/3.8 gram powd Stir 2 teaspoonfuls into 4-8 oz of beverage or soft food daily cloZAPine (CLOZARIL) 100 mg tablet take one tablet at noon, 2 tablets at 3 PM and 3 tablets at Bedtime OMEGA-3 FATTY ACIDS (FISH OIL CONCENTRATE ORAL) Take by mouth once daily. desvenlafaxine ER (PRISTIQ) 50 mg 24 hr tablet Take 50 mg by mouth once daily. risperiDONE orally disintegrating (RISPERDAL M) 2 mg disintegrating tablet Take 2 mg by mouth once daily. clonazePAM (KLONOPIN) 1 mg tablet Take 0.5 mg Bid, 1 mg po at HS risperidone (RISPERDAL CONSTA) 50 mg/2 mL INTRAMUSC. injection Inject 2 mL intramuscularly every 2 weeks. COMPOUNDED PRESCRIPTION Please discontinue Tylenol ES 500 mg daily at bedtime STOOL SOFTENER 100 mg capsule TAKE 1 CAPSULE TWICE A DAY acetaminophen (TYLENOL EXTRA STRENGTH) 500 mg tablet Take 1 tablet by mouth daily at bedtime. Cholecalciferol, Vitamin D3, 1,000 unit cap Take 1 capsule by mouth once daily. albuterol HFA (VENTOLIN HFA) 90 mcg/actuation inhaler Inhale 2 Puffs as instructed every 4 hours as needed for Wheezing/Shortness of Breath. Insulin Syringe-Needle U-100 (BD INSULIN SYRINGE) 1 mL 28 gauge x 1/2 syrg 10 Units once daily. FLOVENT DISKUS 250 mcg/actuation dsdv INHALE ONE PUFF BY MOUTH TWICE DAILY DIRECTED Lancets lancets test BS twice daily 2 days a week- dx 250.00 - non-insulin blood sugar diagnostic (FREESTYLE LITE STRIPS) test strip test BS twice daily - dx - 250.00 -insulin Yes insulin needles, DISPOSABLE, (PEN NEEDLE) 31 X 5/16 ndle Use one needle per dose. Once per day. Blood-Glucose Meter (FREESTYLE LITE METER) monitoring kit Used once daily to check blood sugar. 250.00 PHYSICAL EXAMINATION: VITAL SIGNS: BP 115/75 Pulse 112 Wt 196 lb 11.2 oz (89.2kg) LMP 09/12/2017 Chest: Clear to percussion and auscultation. Trachea is midline. Air entry is equal. Cardiac: Regular rhythm. S1 and S2 are normal. PMI is nondisplaced. There are no murmurs, rubs or gallops. Carotids are brisk without bruits. JVP is less than 10 cm. Abdomen: Soft and nontender. There are no pulsatile masses or bruits. No liver enlargement. Bowel sounds are active. Extremities: No edema. Pulses are intact and symmetrical. EKG shows sinus tachycardia and is within normal limits. There is no change. Recent labs were reviewed. Renal function is normal. LDL was 78. BNP is undetectable. Electronically Signed: Ruben Amaya MD June 08, 2018 2:15 PM CC: Boris Jones MD CNNURSE Observed: 06/08/2018 Status: COMPLETED Source: [place] 2:15 PM [facility] REPOSITORY Nurse Visit (CAWSTR) BRITTNEE LE ([id number]) 1965 F Date Time Provider Department 06/08/18 2:15 PM NURSE CARD ADMIN [facility] CA[facility]STR During your visit today, we recorded the following information about you: Gopi Mitchell RN 06/09/2018 1:27 PM Signed Ekg completed per order. Pt tolerated procedure without distress. Gopi Mitchell RN Referring Provider: RUBEN AMAYA [[id number]] Allergies As of Date: 06/08/2018 (No Known Allergies) Date Reviewed: 06/08/2018 Reviewed by: Gopi Mitchell RN - Fully Assessed Reason for Visit: Nurse Visit [792] Visit Diagnoses:Tachycardia [R00.0] Essential hypertension [I10] Order(s):ECG COMPLETE W INTERPRETATION [ECG01] Order #: [id number] Prescriptions as of 06/08/2018 Sig: METFORMIN 500 MG TABLET TAKE 2 TABLETS BY MOUTH TWICE* PRAVASTATIN 20 MG TABLET TAKE 1 TABLET BY MOUTH ONCE D* GLIPIZIDE 5 MG TABLET TAKE 1 TABLET TWICE A DAY LUBIPROSTONE 24 MCG CAPSULE Take 1 capsule by mouth twice* MILK OF MAGNESIA 400 MG/5 ML * TAKE 15ML BY MOUTH DAILY N* LANTUS U-100 INSULIN 100 UNIT* Give 24 units subq daily at 4* POTASSIUM CHLORIDE ER 20 MEQ * TAKE 1 TABLET BY MOUTH DAILY FERROUS GLUCONATE 324 MG (36 * Take 1 tablet by mouth twice * COMPOUNDED PRESCRIPTION Please discontinue Tylenol ES* STOOL SOFTENER 100 MG CAPSULE TAKE 1 CAPSULE TWICE A DAY Patient not taking: Reported on 03/16/2018 ASPIRIN 325 MG TABLET,DELAYED* Take 1 tablet by mouth once d* ACETAMINOPHEN 500 MG TABLET Take 1 tablet by mouth daily * Patient not taking: Reported on 06/08/2018 FUROSEMIDE 20 MG TABLET Take 1 tablet by mouth once d* WHEAT DEXTRIN 3 GRAM/3.8 GRAM* Stir 2 teaspoonfuls into 4-8 * CHOLECALCIFEROL (VITAMIN D3) * Take 1 capsule by mouth once * CLOZAPINE 100 MG TABLET take one tablet at noon, 2 ta* ALBUTEROL SULFATE HFA 90 MCG/* Inhale 2 Puffs as instructed * Patient not taking: Reported on 06/08/2018 INSULIN SYRINGE-NEEDLE U-100 * 10 Units once daily. FLOVENT DISKUS 250 MCG/ACTUAT* INHALE ONE PUFF BY MOUTH TWIC* FISH OIL CONCENTRATE ORAL Take by mouth once daily. DESVENLAFAXINE SUCCINATE ER 5* Take 50 mg by mouth once ziggy* LANCETS test BS twice daily 2 days a * RISPERIDONE 2 MG DISINTEGRATI* Take 2 mg by mouth once daily. BLOOD SUGAR DIAGNOSTIC STRIPS test BS twice daily - dx - 25* CLONAZEPAM 1 MG TABLET Take 0.5 mg Bid, 1 mg po at HS PEN NEEDLE, DIABETIC 31 GAUGE* Use one needle per dose. Once* BLOOD-GLUCOSE METER KIT Used once daily to check bloo* * RISPERIDONE MICROSPHERES 50 M* Inject 2 mL intramuscularly e* Problem List As Of Date 06/08/2018 Noted Resolved Schizophreniform disorder, chronic condition (H* Priority: Mild More... Other abnormal glucose [R73.09] 04/29/2018 Priority: A More... DM w/o Complication Type II [E11.9] INVALID FOR*02/22/2014 Priority: Moderate Gastritis [K29.70] INVALID FOR* Routine general medical examination at a health*INVALID FOR*11/26/2011 Class: Chronic More... Routine gynecological examination [Z01.419] INVALID FOR*11/26/2011 Class: Chronic More... Vitamin D deficiency [E55.9] INVALID FOR* Priority: A More... Liver Function Test Abnormality [R94.5] INVALID FOR* More... 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 Encounter for screening for malignant neoplasm *INVALID FOR* Postmenopausal bleeding [N95.0] INVALID FOR* More... Acute diastolic CHF (congestive heart failure) *INVALID FOR* More... Obesity, Class II, BMI 35-39.9 [E66.9] INVALID FOR* Visit Notes: >> Gopi Blandon Jun 09, 2018 1:26 PM Status: Signed Ekg completed per order. Pt tolerated procedure without distress. Gopi Mitchell RN Encounter Status:Closed by GOPI MITCHELL RN on 06/09/18 EKG1 Observed: 06/08/2018 Status: F Source: [place] 2:02 PM [facility] REPOSITORY NAME : BRITTNEE LE PID : [id number] : 1965 Gender : Female Race : ORD : Procedure Date : Jun 08 2018 14:02:35 Edit Date : Jun 09 2018 12:43:51 Diagnosis:SINUS TACHYCARDIA LOW VOLTAGE QRS, CONSIDER PULMONARY DISEASE, PERICARDIAL EFFUSION, OR NORMAL VARIANT BORDERLINE ECG NO SIGNIFICANT CHANGE FROM PREVIOUS ECG Confirmed by RUBEN AMAYA MD ([id number]) on 06/09/2018 12:43:47 PM Ventricular Rate : 103 BPM Atrial Rate : 103 BPM P-R Interval : 158 ms QRS Duration : 82 ms Q-T Interval : 332 ms QTC Calculation(Bezet) : 434 ms P Diana : 52 degrees R Diana : 11 degrees T Diana : 52 degrees Test Reason : Location : 136 : [facility] Overread By : RUBEN AMAYA MD Edited By : RUBEN AMAYA MD Referred By : RUBEN AMAYA Acquired by : DRU SWEENEY Observed: 06/08/2018 Status: COMPLETED Source: [place] 1:30 PM [facility] REPOSITORY Office Visit (CAWSTR) BRITTNEE LE ([id number]) 1965 F Date Time Provider Department 06/08/18 1:30 PM RUBEN AMAYA During your visit today, we recorded the following information about you: Pulse Blood pressure Weight 112/minute 115/75 89.2 kg Ruben Amaya MD 06/08/2018 5:37 PM Signed PERTINENT CARDIAC HISTORY Near syncope Palpitations HL HTN Tachycardia DM LIDA - CPAP CHF - diastolic if any ADHERENCE TO GUIDELINES CESIA-I or ARB for HF with prior LVEF<40 (NQF 0081) - N/A ASA or Plavix for ASHD (NQF 0067) - N/A Beta harika for ASHD with prior KS or prior LVEF<40 (NQF 0070) - N/A Beta harika for HF with prior LVEF<40 (NQF 0083) - N/A CESIA-I or ARB for ASHD with DM or prior LVEF<40 (NQF 0066) - N/A Statin therapy for ASHD or FHL or DM - met BMI documented and plan if >25 (NQF 0421) - lifestyle recommendation form Tobacco use screening and referral (NQF 0028) - lifestyle recommendation form Recommendation for whole food, plant based diet - lifestyle recommendation form CLINICAL IMPRESSION/PLAN: Brittnee Le is doing well. She has persistent sinus tachycardia but well-preserved LV function She will continue her current medication. I've asked her to call if she has increase shortness of breath or chest discomfort. I will see her in 8 months or as needed Written and verbal health teaching given to patient, patient verbalizes understanding and agrees with treatment plan. DIAGNOSIS FOR VISIT: Tachycardia HISTORY OF PRESENT ILLNESS Brittnee Le returns for follow-up of her tachycardia. She reports stable exercise tolerance. Per canvas baster, she has had no recent complaints. She's had no chest discomfort. She denies edema, syncope, palpitations, TIAs, amaurosis and claudication. ALLERGIES: ALLERGIES No Known Allergies CURRENT OUTPATIENT MEDICATIONS: metFORMIN (GLUCOPHAGE) 500 mg tablet TAKE 2 TABLETS BY MOUTH TWICE DAILY WITH MEALS. . pravastatin (PRAVACHOL) 20 mg tablet TAKE 1 TABLET BY MOUTH ONCE DAILY. glipiZIDE (GLUCOTROL) 5 mg tablet TAKE 1 TABLET TWICE A DAY lubiprostone (AMITIZA) 24 mcg capsule Take 1 capsule by mouth twice daily with meals. MILK OF MAGNESIA 400 mg/5 mL suspension TAKE 15ML BY MOUTH DAILY NEEDED FOR CONSTIPATION (FOR NO BOWEL MOVEMENT AFTER 3 LANTUS U-100 INSULIN 100 unit/mL injection Give 24 units subq daily at 4 PM or as directed potassium chloride ER (K-DUR, KLOR-CON) 20 mEq tablet TAKE 1 TABLET BY MOUTH DAILY Ferrous Gluconate 324 mg (36 mg iron) tab Take 1 tablet by mouth twice daily with meals. aspirin, enteric coated (ASPIRIN, ENTERIC COATED) 325 mg EC tablet Take 1 tablet by mouth once daily. Take with food. furosemide (LASIX) 20 mg tablet Take 1 tablet by mouth once daily. wheat dextrin (BENEFIBER SUGAR FREE, DEXTRIN,) 3 gram/3.8 gram powd Stir 2 teaspoonfuls into 4-8 oz of beverage or soft food daily cloZAPine (CLOZARIL) 100 mg tablet take one tablet at noon, 2 tablets at 3 PM and 3 tablets at Bedtime OMEGA-3 FATTY ACIDS (FISH OIL CONCENTRATE ORAL) Take by mouth once daily. desvenlafaxine ER (PRISTIQ) 50 mg 24 hr tablet Take 50 mg by mouth once daily. risperiDONE orally disintegrating (RISPERDAL M) 2 mg disintegrating tablet Take 2 mg by mouth once daily. clonazePAM (KLONOPIN) 1 mg tablet Take 0.5 mg Bid, 1 mg po at HS risperidone (RISPERDAL CONSTA) 50 mg/2 mL INTRAMUSC. injection Inject 2 mL intramuscularly every 2 weeks. COMPOUNDED PRESCRIPTION Please discontinue Tylenol ES 500 mg daily at bedtime STOOL SOFTENER 100 mg capsule TAKE 1 CAPSULE TWICE A DAY acetaminophen (TYLENOL EXTRA STRENGTH) 500 mg tablet Take 1 tablet by mouth daily at bedtime. Cholecalciferol, Vitamin D3, 1,000 unit cap Take 1 capsule by mouth once daily. albuterol HFA (VENTOLIN HFA) 90 mcg/actuation inhaler Inhale 2 Puffs as instructed every 4 hours as needed for Wheezing/Shortness of Breath. Insulin Syringe-Needle U-100 (BD INSULIN SYRINGE) 1 mL 28 gauge x 1/2 syrg 10 Units once daily. FLOVENT DISKUS 250 mcg/actuation dsdv INHALE ONE PUFF BY MOUTH TWICE DAILY DIRECTED Lancets lancets test BS twice daily 2 days a week- dx 250.00 - non-insulin blood sugar diagnostic (FREESTYLE LITE STRIPS) test strip test BS twice daily - dx - 250.00 -insulin Yes insulin needles, DISPOSABLE, (PEN NEEDLE) 31 X 5/16 ndle Use one needle per dose. Once per day. Blood-Glucose Meter (FREESTYLE LITE METER) monitoring kit Used once daily to check blood sugar. 250.00 PHYSICAL EXAMINATION: VITAL SIGNS: BP 115/75 Pulse 112 Wt 196 lb 11.2 oz (89.2kg) LMP 09/12/2017 Chest: Clear to percussion and auscultation. Trachea is midline. Air entry is equal. Cardiac: Regular rhythm. S1 and S2 are normal. PMI is nondisplaced. There are no murmurs, rubs or gallops. Carotids are brisk without bruits. JVP is less than 10 cm. Abdomen: Soft and nontender. There are no pulsatile masses or bruits. No liver enlargement. Bowel sounds are active. Extremities: No edema. Pulses are intact and symmetrical. EKG shows sinus tachycardia and is within normal limits. There is no change. Recent labs were reviewed. Renal function is normal. LDL was 78. BNP is undetectable. Electronically Signed: Ruben Amaya MD June 08, 2018 2:15 PM CC: MD Ruben Oviedo MD 06/08/2018 2:15 PM Signed LIFESTYLE CHANGE A healthy lifestyle is the most important component of your overall treatment plan. 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 EAT A WHOLE FOOD, PLANT BASED DIET The nutrition your body gets is more important than the medicine you take. What matters most is the overall way you eat. We encourage you to minimize the use of animal products (which include dairy and all meats except fatty fish) and use whole, unprocessed plant foods to provide your protein, vitamins and other nutrients. We have a lot of information to share with you on this topic. This is not a diet. It is a way of life that you will keep with you. EXERCISE REGULARLY It is not important to spend hours in the gym, lifting weights and perspiring heavily. A total of 2-3 hours per week of aerobic (causing you to be moderately short of breath) exercise is sufficient to improve your health. Talk to us before you begin a new exercise program, if you have heart disease or experience shortness of breath or chest pain. REDUCE STRESS Chronic emotional and physical stress leads to disease. Ways of reducing stress include meditation, visualization, prayer, yoga and other forms of relaxation therapy. Consistency is the bosch. Find a technique that works for you and do it every day. CULTIVATE RELATIONSHIPS Loneliness and isolation have a major negative impact on health. Seek out others who can love, care for and nurture you. Avoid hurtful relationships. MAINTAIN IDEAL BODY WEIGHT The best way to do this is to do all the things above. Our bodies naturally find the right weight if we keep moving and feed ourselves the right food. If your BMI is greater than 25, we strongly recommend a referral to a weight management program. Please speak to us or your family physician about available programs. AVOID NICOTINE IN ALL FORMS This includes all tobacco products, whether chewed, smoked, vaped, or rubbed on the skin. Smoking cessation programs, which can make use of tobacco substitutes, medications to suppress cravings and behavior management, are available. Please contact your family physician about programs in your area. Referring Provider: RUBEN AMAYA [[id number]] Allergies As of Date: 06/08/2018 (No Known Allergies) Date Reviewed: 06/08/2018 Reviewed by: Gopi Mitchell RN - Fully Assessed Reason for Visit: Recheck [92] Primary Visit Diagnosis:Tachycardia [R00.0] Other Visit Diagnosis:Essential hypertension [I10] Order(s):ECG COMPLETE W INTERPRETATION [ECG01] Order #: [id number] FUTURE Prescriptions as of 06/08/2018 Sig: METFORMIN 500 MG TABLET TAKE 2 TABLETS BY MOUTH TWICE* PRAVASTATIN 20 MG TABLET TAKE 1 TABLET BY MOUTH ONCE D* GLIPIZIDE 5 MG TABLET TAKE 1 TABLET TWICE A DAY LUBIPROSTONE 24 MCG CAPSULE Take 1 capsule by mouth twice* MILK OF MAGNESIA 400 MG/5 ML * TAKE 15ML BY MOUTH DAILY N* LANTUS U-100 INSULIN 100 UNIT* Give 24 units subq daily at 4* POTASSIUM CHLORIDE ER 20 MEQ * TAKE 1 TABLET BY MOUTH DAILY FERROUS GLUCONATE 324 MG (36 * Take 1 tablet by mouth twice * ASPIRIN 325 MG TABLET,DELAYED* Take 1 tablet by mouth once d* FUROSEMIDE 20 MG TABLET Take 1 tablet by mouth once d* WHEAT DEXTRIN 3 GRAM/3.8 GRAM* Stir 2 teaspoonfuls into 4-8 * CLOZAPINE 100 MG TABLET take one tablet at noon, 2 ta* FISH OIL CONCENTRATE ORAL Take by mouth once daily. DESVENLAFAXINE SUCCINATE ER 5* Take 50 mg by mouth once ziggy* RISPERIDONE 2 MG DISINTEGRATI* Take 2 mg by mouth once daily. CLONAZEPAM 1 MG TABLET Take 0.5 mg Bid, 1 mg po at HS * RISPERIDONE MICROSPHERES 50 M* Inject 2 mL intramuscularly e* COMPOUNDED PRESCRIPTION Please discontinue Tylenol ES* STOOL SOFTENER 100 MG CAPSULE TAKE 1 CAPSULE TWICE A DAY Patient not taking: Reported on 03/16/2018 ACETAMINOPHEN 500 MG TABLET Take 1 tablet by mouth daily * Patient not taking: Reported on 06/08/2018 CHOLECALCIFEROL (VITAMIN D3) * Take 1 capsule by mouth once * ALBUTEROL SULFATE HFA 90 MCG/* Inhale 2 Puffs as instructed * Patient not taking: Reported on 06/08/2018 INSULIN SYRINGE-NEEDLE U-100 * 10 Units once daily. FLOVENT DISKUS 250 MCG/ACTUAT* INHALE ONE PUFF BY MOUTH TWIC* LANCETS test BS twice daily 2 days a * BLOOD SUGAR DIAGNOSTIC STRIPS test BS twice daily - dx - 25* PEN NEEDLE, DIABETIC 31 GAUGE* Use one needle per dose. Once* BLOOD-GLUCOSE METER KIT Used once daily to check bloo* Problem List As Of Date 06/08/2018 Noted Resolved Schizophreniform disorder, chronic condition (H* Priority: Mild More... Other abnormal glucose [R73.09] 04/29/2018 Priority: A More... DM w/o Complication Type II [E11.9] INVALID FOR*02/22/2014 Priority: Moderate Gastritis [K29.70] INVALID FOR* Routine general medical examination at a health*INVALID FOR*11/26/2011 Class: Chronic More... Routine gynecological examination [Z01.419] INVALID FOR*11/26/2011 Class: Chronic More... Vitamin D deficiency [E55.9] INVALID FOR* Priority: A More... Liver Function Test Abnormality [R94.5] INVALID FOR* More... 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 Encounter for screening for malignant neoplasm *INVALID FOR* Postmenopausal bleeding [N95.0] INVALID FOR* More... Acute diastolic CHF (congestive heart failure) *INVALID FOR* More... Obesity, Class II, BMI 35-39.9 [E66.9] INVALID FOR* Other instructions from your clinician: LIFESTYLE CHANGE A healthy lifestyle is the most important component of your overall treatment plan. 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 EAT A WHOLE FOOD, PLANT BASED DIET The nutrition your body gets is more important than the medicine you take. What matters most is the overall way you eat. We encourage you to minimize the use of animal products (which include dairy and all meats except fatty fish) and use whole, unprocessed plant foods to provide your protein, vitamins and other nutrients. We have a lot of information to share with you on this topic. This is not a diet. It is a way of life that you will keep with you. EXERCISE REGULARLY It is not important to spend hours in the gym, lifting weights and perspiring heavily. A total of 2-3 hours per week of aerobic (causing you to be moderately short of breath) exercise is sufficient to improve your health. Talk to us before you begin a new exercise program, if you have heart disease or experience shortness of breath or chest pain. REDUCE STRESS Chronic emotional and physical stress leads to disease. Ways of reducing stress include meditation, visualization, prayer, yoga and other forms of relaxation therapy. Consistency is the bosch. Find a technique that works for you and do it every day. CULTIVATE RELATIONSHIPS Loneliness and isolation have a major negative impact on health. Seek out others who can love, care for and nurture you. Avoid hurtful relationships. MAINTAIN IDEAL BODY WEIGHT The best way to do this is to do all the things above. Our bodies naturally find the right weight if we keep moving and feed ourselves the right food. If your BMI is greater than 25, we strongly recommend a referral to a weight management program. Please speak to us or your family physician about available programs. AVOID NICOTINE IN ALL FORMS This includes all tobacco products, whether chewed, smoked, vaped, or rubbed on the skin. Smoking cessation programs, which can make use of tobacco substitutes, medications to suppress cravings and behavior management, are available. Please contact your family physician about programs in your area. LOS history recorded Follow-up and Disposition History Recorded Encounter Status:Closed by RUBEN AMAYA MD on 06/08/18 PROGRESS Observed: 05/26/2018 Status: COMPLETED Source: [place] 9:45 AM [facility] REPOSITORY HNO ID: [id number] Author: Asia (Rn) Indra Service: (none) Author Type: Registered Nurse Type: Progress Notes Filed: 05/26/2018 9:50 AM Note Text: PRIMARY CARE COORDINATION FOLLOW-UP NOTE Provider Action/FYI Dry intermittent non-productive cough x 3-4 days. Acting fine, not sick. No fever, SOB, wheezing or chest pain Occasionally sounds raspy at night when wearing CPAP No LE edema and weight varying within 3 lbs. Noted patient will cough more frequently as pt notices CG around her Instructed to watch pt, if she acts sick, fever, productive cough, SOB, wheeze, LE edema or weight gain bring pt in to see PCP, verbalized understanding and agreement Patient identified by name and date of . YES Spoke to Ezio [facility] CG Concerns: Pt has had dry intermittent non-productive cough x 3-4 days. Acting fine, not sick. No fever, SOB, wheezing or chest pain Occasionally sounds raspy at night when wearing CPAP No LE edema and weight varying within 3 lbs. 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 Acting fine, not sick. No fever, SOB, wheezing or chest pain Occasionally sounds raspy at night when wearing CPAP No LE edema and weight varying within 3 lbs. Noted patient will cough more frequently as pt notices CG around her Instructed to watch pt, if she acts sick, fever, productive cough, SOB, wheeze, LE edema or weight gain bring pt in to see PCP, verbalized understanding and agreement Patient identified by name and date of . YES Spoke to Ezio [facility] CG Concerns: Pt has had dry intermittent non-productive cough x 3-4 days. Acting fine, not sick. No fever, SOB, wheezing or chest pain Occasionally sounds raspy at night when wearing CPAP No LE edema and weight varying within 3 lbs. 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] Prescriptions as of 05/26/2018 Sig: METFORMIN 500 MG TABLET TAKE 2 TABLETS BY MOUTH TWICE* PRAVASTATIN 20 MG TABLET TAKE 1 TABLET BY MOUTH ONCE D* GLIPIZIDE 5 MG TABLET TAKE 1 TABLET TWICE A DAY LUBIPROSTONE 24 MCG CAPSULE Take 1 capsule by mouth twice* MILK OF MAGNESIA 400 MG/5 ML * TAKE 15ML BY MOUTH DAILY N* LANTUS U-100 INSULIN 100 UNIT* Give 24 units subq daily at 4* POTASSIUM CHLORIDE ER 20 MEQ * TAKE 1 TABLET BY MOUTH DAILY FERROUS GLUCONATE 324 MG (36 * Take 1 tablet by mouth twice * COMPOUNDED PRESCRIPTION Please discontinue Tylenol ES* STOOL SOFTENER 100 MG CAPSULE TAKE 1 CAPSULE TWICE A DAY Patient not taking: Reported on 03/16/2018 ASPIRIN 325 MG TABLET,DELAYED* Take 1 tablet by mouth once d* ACETAMINOPHEN 500 MG TABLET Take 1 tablet by mouth daily * FUROSEMIDE 20 MG TABLET Take 1 tablet by mouth once d* WHEAT DEXTRIN 3 GRAM/3.8 GRAM* Stir 2 teaspoonfuls into 4-8 * CHOLECALCIFEROL (VITAMIN D3) * Take 1 capsule by mouth once * CLOZAPINE 100 MG TABLET take one tablet at noon, 2 ta* ALBUTEROL SULFATE HFA 90 MCG/* Inhale 2 Puffs as instructed * INSULIN SYRINGE-NEEDLE U-100 * 10 Units once daily. FLOVENT DISKUS 250 MCG/ACTUAT* INHALE ONE PUFF BY MOUTH TWIC* FISH OIL CONCENTRATE ORAL Take by mouth once daily. DESVENLAFAXINE SUCCINATE ER 5* Take 50 mg by mouth once ziggy* LANCETS test BS twice daily 2 days a * RISPERIDONE 2 MG DISINTEGRATI* Take 2 mg by mouth once daily. BLOOD SUGAR DIAGNOSTIC STRIPS test BS twice daily - dx - 25* CLONAZEPAM 1 MG TABLET Take 0.5 mg Bid, 1 mg po at HS PEN NEEDLE, DIABETIC 31 GAUGE* Use one needle per dose. Once* BLOOD-GLUCOSE METER KIT Used once daily to check bloo* * RISPERIDONE MICROSPHERES 50 M* Inject 2 mL intramuscularly e* Problem List As Of Date 05/26/2018 Noted Resolved Schizophreniform disorder, chronic condition (H* Priority: Mild More... Other abnormal glucose [R73.09] 04/29/2018 Priority: A More... DM w/o Complication Type II [E11.9] INVALID FOR*02/22/2014 Priority: Moderate Gastritis [K29.70] INVALID FOR* Routine general medical examination at a health*INVALID FOR*11/26/2011 Class: Chronic More... Routine gynecological examination [Z01.419] INVALID FOR*11/26/2011 Class: Chronic More... Vitamin D deficiency [E55.9] INVALID FOR* Priority: A More... Liver Function Test Abnormality [R94.5] INVALID FOR* More... 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 Encounter for screening for malignant neoplasm *INVALID FOR* Postmenopausal bleeding [N95.0] INVALID FOR* More... Acute diastolic CHF (congestive heart failure) *INVALID FOR* More... Obesity, Class II, BMI 35-39.9 [E66.9] INVALID FOR* Encounter Status:Closed by ASIA BURRELL on 05/26/18 INITAL EVALUATION (1) Observed: 05/20/2018 Status: F Source: SILVER - PT 2:19 PM [facility] REPOSITORY [facility] [address] [place], [place] [address] Fax REHABILITATION SERVICES INITIAL EVALUATION MR#: [id number] Acct: [id number] Name: BRITTNEE LE Rep #: [id number] : 1965 52 From: Zeynep Phan PT, Cert. MDT Referring Dr.: Boris Jones MD Status: REG RCR Insurance: [employer] MEDICAID Patient's Visit Information BRITTNEE LE is a 52 year old F referred to Physical Therapy by Boris Jones with a diagnosis of LOW BACK PAIN M54.5. Date of Evaluation: 05/20/18 Physical Therapist: Zeynep Phan - Visit Plan Frequency: 2-3x /Week Duration: 4-6 Weeks Plan: POSTURE CORRECTION/STRENGTHENING, INSTRUCTION IN APPROPRIATE BODY MECHANICS AND ACTIVITY MODIFICATIONS. DLS STARTING WITH A NEUTRAL SPINE PROGRESSING ROM TOLERATED. ASHELY LE ROM, STRETCHING AND STRENGTHENING. HEP INSTRUCTION. MODALITIES NEEDED. - Subjective Subjective: Disability: YES - SKITZOPHRENIA. LIKES TO COOK AND CLEAN AT THE [facility]. Present symptoms: BACK AND ASHELY LEG PAIN. Present since: YEARS. Pain Scale: WORST 5/10, LEAST 4/10. Currently: 4/10. Commenced as a result of: NO APPARENT REASON. Symptoms at onset: BACK. Worse: NERVES, SITTING WITHOUT BACK SUPPORT, STANDING A LONG TIME. Better: LYING DOWN - ON EITHER SIDE. Disturbed sleep: NO - PARI LINN HELPS AT NIGHT WITH LEG PAIN. Previous history/Previous treatment: UNREMARKABLE. Coughing/sneezing/straining: NEGATIVE. Gait: PATIENT REPORTS SHE HASN'T HAD ANY FALLS AND SHE DOES NOT USE A CANE OR A WALKER. PATIENT REPORTS HER BACK PAIN DOES MAKE HER HAVE TO STOP AT TIMES. Difficulty initiating urinatin: NO. Accidents: NO. Unexplained weight loss: NO. Imaging: NO. PMH: SKITZOPHRENIA, IDDM, COPD. Recent major surgery: JAW SURGERY. OTHER: WENDIE - A QUALIFIED MENTAL HEALTH RN TELEPHONIC FROM THE [facility] THAT PATIENT LIVES AT IS WITH HER TODAY THROUGHOUT THE EVALUATION. PATIENT REPORTS SHE LIVED WITH HER MOM OR HER MOM WAS TAKING CARE OF HER MOST OF HER LIFE BUT SHE HELPED PLACE HER IN THIS HOME SO SHE WOULD BE TAKEN CARE OF IF SHE DIES. THERE ARE A LOT OF STEPS AT THE [facility] AND WENDIE STATES PATIENT DOES WELL WITH THE STEPS. - Objective Sitting/Standing Posture: POOR. INCREASED KYPHOSIS. Lordosis: REDUCED. Lateral shift: NO. Relevant shift: N/A. Active Correction of posture: NE. TOLERATING PASSIVE CORRECTION FAIR IN CLINIC TODAY. Other Observations: SLOW GAIT INTO PT WITHOUT LOB AND WITHOUT ANY ASSISTIVE DEVICES. DECREASED ASHELY STRIDE LENGTH AND TRUNK ROTATION. Motor deficit: ASHELY LE STRENGTH 5/5 WITH MMT'ING EXCEPT HIPS GRADED 4/5. Sensory deficit: ASHELY LE LIGHT TOUCH SENSATION APPEARS TO BE INTACT AND SYMMETRICAL BUT FEET NT. ROM deficit: TIGHT ASHELY HIP FLEXORS, HS'S AND GASTROC SOLEUS COMPLEX'S. Reflexes: UNABLE TO ELICIT ASHELY LE DTR'S. Dural Signs: POSITIVE ASHELY LE'S. Lumbar mvmt loss: flex - MIN. ext - MONICA. R SG - MONICA. L SG - MONICA. Core strength: POOR. Palpation: NO ACUTE TENDERNESS WITH PALPATION OF THORACIC OR LUMBAR SPINE. NO ACUTE HIP TENDERNESS. OTHER: ASHELY UE ROM IS WFL. ASHELY UE STRENGTH IS GROSSLY 4-/5 WITH MMT'ING. - Goals Goal 1:: DECREASE C/O BACK AND LEG SX'S. Goal Time Frame: 4-6 Weeks Goal 2:: IMPROVE STANDING, WALKING, SOCIAL LIFE AND HOMEMAKING FUNCTION Goal Time Frame: 4-6 Weeks Goal 3:: INSTRUCT IN PROPHYLAXIS - Rehabilitation Potential Rehabilitation Potential: Fair - Anticipated Interventions Patient/Client Instruction: Educate patient on: Condition, Plan of Care, Risk Factors, Benefits of Fitness Program For the Purpose of:: To facilitate caregiver knowledge, To improve self management Therapeutic Exercise to Include: Strength training, Endurance training, Body mechanics, Postural training, Flexibilty training, Active ROM, Dynamic Lumbar Stabilization For the Purpose of:: To decrease pain, To increase ROM, To improve muscle performance and motor function, To increase tolerance to activity/condition/position, To improve ability of physical actions for home/community/work/leisure, To improve gait and locomotor functions Cryotherapy (ice pack, ice massage): Yes Thermo therapy (hot pack): Yes Ultrasound (thermal/non thermal): Yes For the Purpose of:: To decrease pain, To increase ROM, To improve nutrient delivery to tissue Thank you for the opportunity to evaluate your patient. For Medicare and Medicare HMO plans, please review the plan of care and approve it. It will need to be FAXED BACK to us at [phone] for Medicare purposes. Please let me know if there are questions or concerns regarding this plan of care. Physician Signature: Date: <Electronically signed by Zeynep Phan PT, Cert. MDT> 05/20/18 1419 CC: Boris Jones MD MARGOT Signed For Medicare only, by signing this I certify the plan of care. Physicians Signature Date CBC W/DIFF, AUTOMATED Collected: 05/12/2018 Status: F Source: SILVER 9:17 AM [facility] REPOSITORY TYPE CODE TESTS RESULT OUT OF RANGE REFERENCE UNITS LAB L100.1000 4.4-11.0 K/mm3 High WBC 11.7 LAB L100.1200 4.2-5.4 M/mm3 Normal RBC 4.70 LAB L100.1300 12.0-15.0 g/dl Normal HGB 13.4 LAB L100.1400 37-47 % Normal HCT 42.2 LAB L100.1500 81-99 fL Normal MCV 89.8 LAB L100.1600 27.0-32.0 pg Normal MCH 28.5 LAB L100.1700 32-36 g/gl Low MCHC 31.8 LAB L100.1810 11.6-14.6 % High RDW CV 14.8 LAB L100.1820 35.1-43.9 fl High RDW SD 48.2 LAB L100.1900 150-450 K/mm3 Normal PLT 208 LAB L100.2000 6.2-12.0 fl Normal MPV 10.1 LAB L100.2100 47-70 % High NEUT% 75.6 LAB L100.2200 19-41 % Low LY% 18.5 LAB L100.2300 0-10 % Normal MONO% 5.5 LAB L100.2400 0-5 % Normal EO% 0.1 LAB L100.2500 0-1 % Normal BASO% 0.1 LAB L100.2550 0.0-0.9 % Normal IM GRAN % 0.200 Result Comment: IG% - Immature Granulocytes (promyelocytes, myelocytes and metamyelocytes) > 1% indicates that a LEFT SHIFT is Present. LAB L100.2620 2.0-7.7 X10 3/uL High Absolute Neut 8.9 LAB L100.2720 0.83-4.51 X10 3/ul Normal Absolute Lymph 2.17 Performed By: #### L100.0100 #### [facility] [address] [place], [address] PROGRESS Observed: 05/12/2018 Status: COMPLETED Source: BRU[place] 8:07 AM [facility] REPOSITORY O ID: [id number] Author: Asia (Ramón) Indra Service: (none) Author Type: Registered Nurse Type: Progress Notes Filed: 05/12/2018 8:21 AM Note Text: PRIMARY CARE COORDINATION QUICK NOTE Provider Action/FYI Order faxed to [facility] Ezio at [facility] will schedule patient's PT appt at [facility] Patient identified by name and date . TC to Ezio at intermediate, states pt is familiar with [facility] and would feel most comfortable there. PCC will fax PT order and Ezio can call for appts, verbalized agreement. Asia Burrell RN May 12, 2018 8:08 AM PROGRESS Observed: 05/11/2018 Status: COMPLETED Source: BRU[place] 9:08 AM [facility] REPOSITORY HNO ID: [id number] Author: Asia PiperRn) Indra Service: (none) Author Type: Registered Nurse Type: Progress Notes Filed: 05/11/2018 4:57 PM Note Text: PRIMARY CARE COORDINATION QUICK NOTE Provider Action/FYI TC from [facility] GERBER, received message about PT, she thinks that's a good idea and guardian would approve. Pt is familiar with [facility]. Set up PT appt with intermediate, any day except PM when she has group therapy Patient identified by name and date . TC to [facility] GERBER, left message to please call [facility] back re: PT for patient to help with joint pain from arthritis. Asia Burrell RN May 11, 2018 9:10 AM PROGRESS Observed: 05/08/2018 Status: COMPLETED Source: BRUCE 4:29 PM [facility] REPOSITORY HNO ID: [id number] Author: Boris Jones Service: (none) Author Type: Physician Type: Progress Notes Filed: 05/12/2018 8:21 AM Note Text: Lets watch blood sugars. Ok for physical therapy. PROGRESS Observed: 05/08/2018 Status: COMPLETED Source: BRUCE 12:07 PM [facility] REPOSITORY HNO ID: [id number] Author: Asia Crews) Indra Service: (none) Author Type: Registered Nurse Type: Progress Notes Filed: 05/08/2018 12:15 PM Note Text: PRIMARY CARE COORDINATION FOLLOW-UP NOTE Provider Action/FYI Wt range 195-197 Cough less than last week SOB and wheezy at times, using rescue inhaler almost daily C/O arthritis in back. Would PT help for pt? Please note BS Patient identified by name and date of . YES Spoke to Eizo at [facility] Summary: Pt continues to c/o arthritis in back. She has BenGay but they can't help her apply it. Asking if she would benefit from PT. Staff can do exercises with pt. Wt 196 today, range 195-197 Cough less than last week but still SOB and wheezy at times. Using rescue inhaler almost daily this week Brittnee Le is a 52 year old female who reports glucose readings as noted. DATE 05/08 05/07 05/06 05/05 05/04 7/22 Fasting 153 144 143 158 151 180 4 PM 137 164 234 163 172 Any low blood sugars during this period of reporting No Patient's diabetes medications as follows: metFORMIN (GLUCOPHAGE) 500 mg TAKE 2 TABLETS BY MOUTH TWICE DAILY WITH MEALS. glipiZIDE (GLUCOTROL) 5 mg TAKE 1 TABLET TWICE A DAY LANTUS U-100 INSULIN 100 unit/mL Give 24 units subq daily at 4 PM or as directed Savings Teller plan for next outreach: Will follow up Signature Asia Burrell RN May 08, 2018 PROGRESS Observed: 05/08/2018 Status: COMPLETED Source: BRUCE 11:24 AM [facility] REPOSITORY O ID: [id number] Author: Asia Crews) Indra Service: (none) Author Type: Registered Nurse Type: Progress Notes Filed: 05/08/2018 11:26 AM Note Text: PRIMARY CARE COORDINATION QUICK NOTE Provider Action/FYI FYI Patient identified by name and date . TC to [facility], left message to please call PCC back regarding patient's visit with PCP last week for concern of increased fluid weight. Asia Burrell RN May 08, 2018 11:26 AM CNPTOUTREACH Observed: 05/08/2018 Status: COMPLETED Source: BRUCE 12:00 AM [facility] REPOSITORY Patient Outreach (FAMPWS) BRITTNEE LE ([id number]) 1965 F Date Time Provider Department 05/08/18 ASIA BURRELL) [place] During your visit today, we recorded the following information about you: Asia Burrell RN 05/08/2018 11:26 AM Signed PRIMARY CARE COORDINATION QUICK NOTE Provider Action/FYI FYI Patient identified by name and date . TC to [facility], left message to please call PCC back regarding patient's visit with PCP last week for concern of increased fluid weight. Asia Burrell RN May 08, 2018 11:26 AM Asia Burrell RN 05/08/2018 12:15 PM Signed PRIMARY CARE COORDINATION FOLLOW-UP NOTE Provider Action/FYI Wt range 195-197 Cough less than last week SOB and wheezy at times, using rescue inhaler almost daily C/O arthritis in back. Would PT help for pt? Please note BS Patient identified by name and date of . YES Spoke to Ezio at [facility] Summary: Pt continues to c/o arthritis in back. She has BenGay but they can't help her apply it. Asking if she would benefit from PT. Staff can do exercises with pt. Wt 196 today, range 195-197 Cough less than last week but still SOB and wheezy at times. Using rescue inhaler almost daily this week Brittnee Le is a 52 year old female who reports glucose readings as noted. DATE 05/08 05/07 05/06 05/05 05/04 05/03 Fasting 153 144 143 158 151 180 4 PM 137 164 234 163 172 Any low blood sugars during this period of reporting No Patient's diabetes medications as follows: metFORMIN (GLUCOPHAGE) 500 mg TAKE 2 TABLETS BY MOUTH TWICE DAILY WITH MEALS. glipiZIDE (GLUCOTROL) 5 mg TAKE 1 TABLET TWICE A DAY LANTUS U-100 INSULIN 100 unit/mL Give 24 units subq daily at 4 PM or as directed Savings Teller plan for next outreach: Will follow up Signature Asia Burrell RN May 08, 2018 Boris Jones MD 05/12/2018 8:21 AM Signed Lets watch blood sugars. Ok for physical therapy. Asia Burrell RN 05/11/2018 4:57 PM Addendum PRIMARY CARE COORDINATION QUICK NOTE Provider Action/FYI [facility], received message about PT, she thinks that's a good idea and guardian would approve. Pt is familiar with [facility]. Set up PT appt with intermediate, any day except PM when she has group therapy Patient identified by name and date . TC to [facility] GERBER, left message to please call [facility] back re: PT for patient to help with joint pain from arthritis. Asia Burrell RN May 11, 2018 9:10 AM Asia Burrell RN 05/12/2018 8:21 AM Signed PRIMARY CARE COORDINATION QUICK NOTE Provider Action/FYI Order faxed to [facility] Ezio at [facility] will schedule patient's PT appt at [facility] Patient identified by name and date . TC to Ezio at intermediate, states pt is familiar with [facility] and would feel most comfortable there. PCC will fax PT order and Ezio can call for appts, verbalized agreement. 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 Chronic Care [3612] Primary Visit Diagnosis:Low back pain, unspecified back pain laterality, unspecified chronicity, with sciatica presence unspecified [M54.5] Order(s):CONSULT TO PHYSICAL THERAPY [9032] Order #: [id number]: 1 Prescriptions as of 05/08/2018 Sig: GLIPIZIDE 5 MG TABLET TAKE 1 TABLET TWICE A DAY METFORMIN 500 MG TABLET TAKE 2 TABLETS BY MOUTH TWICE* PRAVASTATIN 20 MG TABLET TAKE 1 TABLET BY MOUTH ONCE D* LUBIPROSTONE 24 MCG CAPSULE Take 1 capsule by mouth twice* MILK OF MAGNESIA 400 MG/5 ML * TAKE 15ML BY MOUTH DAILY N* LANTUS U-100 INSULIN 100 UNIT* Give 24 units subq daily at 4* POTASSIUM CHLORIDE ER 20 MEQ * TAKE 1 TABLET BY MOUTH DAILY FERROUS GLUCONATE 324 MG (36 * Take 1 tablet by mouth twice * COMPOUNDED PRESCRIPTION Please discontinue Tylenol ES* STOOL SOFTENER 100 MG CAPSULE TAKE 1 CAPSULE TWICE A DAY Patient not taking: Reported on 03/16/2018 ASPIRIN 325 MG TABLET,DELAYED* Take 1 tablet by mouth once d* ACETAMINOPHEN 500 MG TABLET Take 1 tablet by mouth daily * FUROSEMIDE 20 MG TABLET Take 1 tablet by mouth once d* WHEAT DEXTRIN 3 GRAM/3.8 GRAM* Stir 2 teaspoonfuls into 4-8 * CHOLECALCIFEROL (VITAMIN D3) * Take 1 capsule by mouth once * CLOZAPINE 100 MG TABLET take one tablet at noon, 2 ta* ALBUTEROL SULFATE HFA 90 MCG/* Inhale 2 Puffs as instructed * INSULIN SYRINGE-NEEDLE U-100 * 10 Units once daily. FLOVENT DISKUS 250 MCG/ACTUAT* INHALE ONE PUFF BY MOUTH TWIC* FISH OIL CONCENTRATE ORAL Take by mouth once daily. DESVENLAFAXINE SUCCINATE ER 5* Take 50 mg by mouth once ziggy* LANCETS test BS twice daily 2 days a * RISPERIDONE 2 MG DISINTEGRATI* Take 2 mg by mouth once daily. BLOOD SUGAR DIAGNOSTIC STRIPS test BS twice daily - dx - 25* CLONAZEPAM 1 MG TABLET Take 0.5 mg Bid, 1 mg po at HS PEN NEEDLE, DIABETIC 31 GAUGE* Use one needle per dose. Once* BLOOD-GLUCOSE METER KIT Used once daily to check bloo* * RISPERIDONE MICROSPHERES 50 M* Inject 2 mL intramuscularly e* Problem List As Of Date 05/08/2018 Noted Resolved Schizophreniform disorder, chronic condition (H* Priority: Mild More... Other abnormal glucose [R73.09] 04/29/2018 Priority: A More... DM w/o Complication Type II [E11.9] INVALID FOR*02/22/2014 Priority: Moderate Gastritis [K29.70] INVALID FOR* Routine general medical examination at a [facility]*INVALID FOR*11/26/2011 Class: Chronic More... Routine gynecological examination [Z01.419] INVALID FOR*11/26/2011 Class: Chronic More... Vitamin D deficiency [E55.9] INVALID FOR* Priority: A More... Liver Function Test Abnormality [R94.5] INVALID FOR* More... 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 Encounter for screening for malignant neoplasm *INVALID FOR* Postmenopausal bleeding [N95.0] INVALID FOR* More... Acute diastolic CHF (congestive heart failure) *INVALID FOR* More... Obesity, Class II, BMI 35-39.9 [E66.9] INVALID FOR* Disposition: Return in about 5 weeks (around 06/10/2018). Follow-up and Disposition History Recorded Encounter Status:Closed by ASIA BURRELL on 05/12/18 VITAMIN D 25 HYDROXY Collected: 04/30/2018 Status: F Source: [place] [address]:56 AM [facility] REPOSITORY TYPE CODE TESTS RESULT OUT OF REFERENCE UNITS RANGE LAB VITD 31.0-80.0 ng/mL Test Vitamin D 25 sent to [facility]. Result Comment: Account Credited CHRISTAE NT PRO BNP Collected: 04/30/2018 Status: F Source: [place] 9:56 AM [facility] REPOSITORY TYPE CODE TESTS RESULT OUT OF REFERENCE UNITS RANGE LAB PBNP <125 pg/mL Test PRO B Natr sent to [facility]. Result Comment: Account Credited CHRISTAE HEMOGLOBIN A1C Collected: 04/30/2018 Status: F Source: [place] 9:56 AM [facility] REPOSITORY TYPE CODE TESTS RESULT OUT OF REFERENCE UNITS RANGE LAB HGBA1C 4.0-6.0 % Test Hemoglobin A1c sent to [facility]. Result Comment: Account Credited CHRISTAE LAB HBA0 mg/dL Est. Test sent Average Glucose to [facility]. Result Comment: Account Credited CLAUDE COMP METABOLIC PANEL Collected: 04/30/2018 Status: F Source: [place] 9:56 AM [facility] REPOSITORY TYPE CODE TESTS RESULT OUT OF REFERENCE UNITS RANGE LAB TP 6.3-8.0 g/dL Test sent to [facility]. Result Comment: Account Credited HIDE LAB ALB 3.9-4.9 g/dL Test Albumin sent to [facility]. Result Comment: Account Credited HIDE LAB CA 8.5-10.2 mg/dL Test Calcium, Total sent to [facility]. Result Comment: Account Credited HIDE LAB TBIL 0.2-1.3 mg/dL Bilirubin, Test Total sent to [facility]. Result Comment: Account Credited HIDE LAB ALKP 32-117 U/L Alkaline Test Phosphatase sent to [facility]. Result Comment: Account Credited HIDE LAB AST 13-35 U/L Test sent AST to [facility]. Result Comment: Account Credited HIDE LAB GLU 74-99 mg/dL Test sent Glucose to [facility]. Result Comment: Account Credited HIDE LAB BUN 7-21 mg/dL Test sent BUN to [facility]. Result Comment: Account Credited HIDE LAB CRET 0.58-0.96 mg/dL Creatinine Test sent to [facility]. Result Comment: Account Credited HIDE LAB NA 136-144 mmol/L Test Sodium sent to [facility]. Result Comment: Account Credited CLAUDE LAB K 3.7-5.1 mmol/L Test Potassium sent to [facility]. Result Comment: Account Credited HIDE LAB CL 97-105 mmol/L Test Chloride sent to [facility]. Result Comment: Account Credited CLAUDE LAB CO2 22-30 mmol/L Test sent CO2 to [facility]. Result Comment: Account Credited HIDE LAB AGAP 9-18 mmol/L Test sent Anion Gap to [facility]. Result Comment: Account Credited HIDE LAB ALT 7-38 U/L Test sent to ALT [facility]. Result Comment: Account Credited HIDE LAB GFRAA eGFR- Amer. Test sent to [facility]. Result Comment: Account Credited CLAUDE LAB GFRNAA . eGFR-All Test sent Other Races to [facility]. Result Comment: Account Credited CLAU[facility] LAB GFRPED eGFR-Ped. Test sent Factor to [facility]. Result Comment: Account Credited CLAUDE LIPID PANEL, NONFAST Collected: 04/30/2018 Status: F Source: [place] 9:56 AM [facility] REPOSITORY TYPE CODE TESTS RESULT OUT OF REFERENCE UNITS RANGE LAB CHOLNF <200 mg/dL Total Cholesterol NF Test sent to [facility]. Result Comment: Account Credited CLAUDE LAB TRIGNF <150 mg/dL Triglycerides, NF Test sent to [facility]. Result Comment: Account Credited [facility] LAB HDLNF >39 mg/dL HDL Cholesterol, Test NF sent to [facility]. Result Comment: Account Credited CLAUDE LAB LDLNF <100 mg/dL LDL Cholesterol, Test NF sent to [facility]. Result Comment: Account Credited CLAU[facility] LAB NOHDLN <130 mg/dL Test sent Non HDL Chol, to [facility]. Result Comment: Account Credited CHRISTAE LAB VLDLNF <30 mg/dL VLDL Cholesterol, Test NF sent to [facility]. Result Comment: Account Credited CLAUDE LAB TCHDLN <5.10 mg/dL T Test Chol/HDL Ratio sent to [facility]. Result Comment: Account Credited CLAUDE LAB LDLHDN <2.54 mg/dL Test LDL/HDL Ratio, sent to [facility]. Result Comment: Account Credited CLAUDE TSH Collected: 04/30/2018 Status: F Source: [place] 9:56 AM [facility] REPOSITORY TYPE CODE TESTS RESULT OUT OF REFERENCE UNITS RANGE LAB TSH 0.400-5.500 uU/mL Test TSH sent to [facility]. Result Comment: Account Credited CHRISTAE CBC AND DIFFERENTIAL Collected: 04/30/2018 Status: F Source: [place] 9:56 AM [facility] REPOSITORY TYPE CODE TESTS RESULT OUT OF REFERENCE UNITS RANGE LAB WBC 3.70-11.00 k/uL Test WBC sent to [facility]. Result Comment: Account Credited HIDE LAB RBC 3.90-5.20 m/uL Test sent RBC to [facility]. Result Comment: Account Credited HIDE LAB HGB 11.5-15.5 g/dL Hemoglobin Test sent to [facility]. Result Comment: Account Credited HIDE LAB HCT 36.0-46.0 % Hematocrit Test sent to [facility]. Result Comment: Account Credited HIDE LAB MCV 80.0-100.0 fL Test sent MCV to [facility]. Result Comment: Account Credited HIDE LAB MCH 26.0-34.0 pG Test sent MCH to [facility]. Result Comment: Account Credited HIDE LAB MCHC 30.5-36.0 g/dL Test MCHC sent to [facility]. Result Comment: Account Credited HIDE LAB RDWCV 11.5-15.0 % Test RDW-CV sent to [facility]. Result Comment: Account Credited HIDE LAB PLTCT 150-400 k/uL Test Platelet Count sent to [facility]. Result Comment: Account Credited HIDE LAB MPV 9.0-12.7 fL Test sent MPV to [facility]. Result Comment: Account Credited HIDE LAB DORI Recheck Test sent to [facility]. Result Comment: Account Credited HIDE LAB ANEUT % [facility] Result Comment: Account Credited HIDE LAB AANEUT 1.45-7.50 k/uL Test Abs sent to [facility]. Result Comment: Account Credited HIDE LAB ALYMP % Test sent to Lymph% [facility]. Result Comment: Account Credited HIDE LAB AALYMP 1.00-4.00 k/uL Test Abs Lymph sent to [facility]. Result Comment: Account Credited HIDE LAB AMONO % Test sent to [place]% [facility]. Result Comment: Account Credited HIDE LAB AAMONO <0.87 k/uL Test sent Abs [place] to [facility]. Result Comment: Account Credited HIDE LAB AEOS % Test sent to Eosin% [facility]. Result Comment: Account Credited HIDE LAB AAEOS <0.46 k/uL Test sent Abs Eosin to [facility]. Result Comment: Account Credited HIDE LAB ABASO % Test sent to Baso% [facility]. Result Comment: Account Credited HIDE LAB AABASO <0.11 k/uL Test sent Abs Baso to [facility]. Result Comment: Account Credited HIDE LAB REVW Test sent to Review [facility]. Result Comment: Account Credited HIDE LAB CBCCOM Comment Test sent to [facility]. Result Comment: Account Credited HIDE CBC W/DIFF, AUTOMATED Collected: 04/30/2018 Status: F Source: [place] 9:55 [facility] REPOSITORY TYPE CODE TESTS RESULT OUT OF RANGE REFERENCE UNITS LAB L100.1000 4.4-11.0 K/mm3 Normal WBC 9.3 LAB L100.1200 4.2-5.4 M/mm3 Normal RBC 4.46 LAB L100.1300 12.0-15.0 g/dl Normal HGB 12.9 LAB L100.1400 37-47 % Normal HCT 39.2 LAB L100.1500 81-99 fL Normal MCV 87.9 LAB L100.1600 27.0-32.0 pg Normal MCH 28.9 LAB L100.1700 32-36 g/gl Normal MCHC 32.9 LAB L100.1810 11.6-14.6 % High RDW CV 14.8 LAB L100.1820 35.1-43.9 fl High RDW SD 46.8 LAB L100.1900 150-450 K/mm3 Normal PLT 190 LAB L100.2000 6.2-12.0 fl Normal MPV 11.7 LAB L100.2100 47-70 % Normal NEUT% 66.3 LAB L100.2200 19-41 % Normal LY% 24.7 LAB L100.2300 0-10 % Normal MONO% 8.5 LAB L100.2400 0-5 % Normal EO% 0.1 LAB L100.2500 0-1 % Normal BASO% 0.2 LAB L100.2550 0.0-0.9 % Normal IM GRAN % 0.200 Result Comment: IG% - Immature Granulocytes (promyelocytes, myelocytes and metamyelocytes) > 1% indicates that a LEFT SHIFT is Present. LAB L100.2620 2.0-7.7 X10 3/uL Normal Absolute Neut 6.1 LAB L100.2720 0.83-4.51 X10 3/ul Normal Absolute Lymph 2.29 Performed By: #### L100.0100 #### [facility] [address] [place], [place], [address] HEMOGLOBIN A1C Collected: 04/30/2018 Status: F Source: [place] 9:55 AM [facility] REPOSITORY TYPE CODE TESTS RESULT OUT OF RANGE REFERENCE UNITS LAB L501.9985 4.2-6.3 % High HGB A1C 7.5 Performed By: #### L501.9985 #### [facility] [address] [place], [address] COMPREHENSIVE METABOLIC Collected: 04/30/2018 Status: F Source: [facility] 9:55 AM [facility] REPOSITORY TYPE CODE TESTS RESULT OUT OF RANGE REFERENCE UNITS LAB L501.0100 74-106 mg/dL High GLU 127 Result Comment: Fasting Glucose result greater than or equal to 126 mg/dL suggests DIABETES MELLITUS per A.D.A. criteria. Please note revised GLUCOSE reference range effective 2017. LAB L501.1000 7-18 mg/dL Normal BUN 8 LAB L501.1100 0.55-1.02 mg/dL Normal CREAT,SERUM 0.66 Result Comment: The validity of the calculated GFR AND GFRAA in patients over 70 years has not been determined. Clinical correlation is essential. LAB L501.1110 >60 mL/min Normal EST GFR 99 Result Comment: Non- GFR Calc LAB L501.1115 >60 mL/min Normal EST GFR - AA 120 Result Comment: GFR Calc LAB L501.1300 10-20 RATIO Normal BUN/CRE 12.1 LAB L501.1500 6.4-8.2 g/dL T Normal PROT 8.0 LAB L501.1800 3.2-5.0 g/dL Normal ALB 3.8 LAB L501.1950 2.2-4.2 g/dL Normal GLOB 4.2 LAB L501.2000 0.9-2.4 RATIO Normal A/G 0.9 LAB L501.2200 8.5-10.1 mg/dL CA Normal 8.7 LAB L501.4100 15-37 U/L Normal AST 20 LAB L501.4305 45-117 U/L High ALK P 135 LAB L501.4405 13-56 U/L Normal ALT 48 LAB L501.4600 0.20-1.00 mg/dL T Normal BILI 0.40 LAB L501.5300 136-145 mmol/L Low NA 135 LAB L501.5600 3.5-5.1 mmol/L K Normal 4.0 LAB L501.5900 98-107 mmol/L CL Normal 101 LAB L501.6100 21.0-32.0 mmol/L Normal CO2 24.0 LAB L501.6200 5-15 Normal GAP 10 Performed By: #### L500.4050, L500.4100, L501.9520 #### [facility] [address] [place], [place], [address] LIPID PROFILE Collected: 04/30/2018 Status: F Source: [place] 9:55 AM [facility] REPOSITORY TYPE CODE TESTS RESULT OUT OF RANGE REFERENCE UNITS LAB L501.4900 200 mg/dL Normal CHOL 168 Result Comment: <200 mg/dL Desirable 200-240 mg/dL Borderline >240 mg/dL High Risk LAB L501.5000 mg/dL Normal TRIG 173 Result Comment: The drugs N-Acetylcysteine and Metamizole may falsely depress this assay. Serum Triglycerides Reference Interval Normal <150 mg/dL Borderline high 150 - 199 mg/dL High 200 - 499 mg/dL Very High > or = 500 mg/dL LAB L501.6400 mg/dL Normal HDL 55 Result Comment: The drugs N-Acetylcysteine and Metamizole may falsely depress this assay. Reference Range HDL <40 mg/dL Low HDL Cholesterol HDL >or= 60 mg/dL High HDL Cholesterol LAB L501.6500 0-130 mg/dL Normal LDL 78 LAB L501.6600 5-40 mg/dL Normal VLDL 35 Performed By: #### L500.4050, L500.4100, L501.9520 #### [facility] [address] [place], [address] THYROID STIM HORMONE Collected: 04/30/2018 Status: F Source: [place] (TSH) 9:55 AM [facility] REPOSITORY TYPE CODE TESTS RESULT OUT OF RANGE REFERENCE UNITS LAB L501.9520 0.358-3.74 uIU/mL Normal TSH 1.17 Performed By: #### L500.4050, L500.4100, L501.9520 #### [facility] [address] [place], [address] BNP,B-TYPE NATRIURETIC Collected: 04/30/2018 Status: F Source: [place] 9:55 AM [facility] REPOSITORY TYPE CODE TESTS RESULT OUT OF RANGE REFERENCE UNITS LAB L503.6620 0-100 pg/mL Normal B-TYPE < 2.0 ISAMAR PEP Performed By: #### L503.6620 #### [facility] [address] [place], [address] VITAMIN D,25 HYDROXY Collected: 04/30/2018 Status: F Source: [place] 9:55 AM [facility] REPOSITORY TYPE CODE TESTS RESULT OUT OF RANGE REFERENCE UNITS LAB L506.1000 29.95-100.01 ng/mL Normal Vitamin D 30.2 25-OH Result Comment: Vitamin D 25(OH) Status Range Deficiency <20 ng/mL (50nmol/L) Insuffciency 20 - 30 ng/mL (50 - 75 nmol/L) Sufficiency 30 - 100 ng/mL (75 - 250 nmol/L) Toxicity >100 ng/mL (>250 nmol/L) Performed By: #### L506.1000 #### [facility] [address] [place], [address] PROGRESS Observed: 04/29/2018 Status: COMPLETED Source: [place] 9:56 AM [facility] REPOSITORY HNO ID: [id number] Author: Boris Jones Service: (none) Author Type: Physician Type: Progress Notes Filed: 04/29/2018 10:08 AM Note Text: Patient presents with: Fatigue Breathing Problem: labored breathing Edema: fluid retention HPI: Patient presents today for office visit for acute visit. Complains of being deathly tired. Staff concerned about fluid retention because she is not losing weight. They reported she sometimes breathes hard but her home health care case manager feels she is breathing normally. No increased cough. No chest pain or increased edema. Weight is relatively stable. Sugars have been overall better. Appetite is stable. She is still seeing psych. Mentally is stable. MEDICATIONS: Current Outpatient Prescriptions: metFORMIN (GLUCOPHAGE) 500 mg tablet TAKE 2 TABLETS BY MOUTH TWICE DAILY WITH MEALS. . pravastatin (PRAVACHOL) 20 mg tablet TAKE 1 TABLET BY MOUTH ONCE DAILY. glipiZIDE (GLUCOTROL) 5 mg tablet TAKE 1 TABLET TWICE A DAY lubiprostone (AMITIZA) 24 mcg capsule Take 1 capsule by mouth twice daily with meals. MILK OF MAGNESIA 400 mg/5 mL suspension TAKE 15ML BY MOUTH DAILY NEEDED FOR CONSTIPATION (FOR NO BOWEL MOVEMENT AFTER 3 LANTUS U-100 INSULIN 100 unit/mL injection Give 24 units subq daily at 4 PM or as directed potassium chloride ER (K-DUR, KLOR-CON) 20 mEq tablet TAKE 1 TABLET BY MOUTH DAILY Ferrous Gluconate 324 mg (36 mg iron) tab Take 1 tablet by mouth twice daily with meals. COMPOUNDED PRESCRIPTION Please discontinue Tylenol ES 500 mg daily at bedtime aspirin, enteric coated (ASPIRIN, ENTERIC COATED) 325 mg EC tablet Take 1 tablet by mouth once daily. Take with food. acetaminophen (TYLENOL EXTRA STRENGTH) 500 mg tablet Take 1 tablet by mouth daily at bedtime. furosemide (LASIX) 20 mg tablet Take 1 tablet by mouth once daily. wheat dextrin (BENEFIBER SUGAR FREE, DEXTRIN,) 3 gram/3.8 gram powd Stir 2 teaspoonfuls into 4-8 oz of beverage or soft food daily Cholecalciferol, Vitamin D3, 1,000 unit cap Take 1 capsule by mouth once daily. cloZAPine (CLOZARIL) 100 mg tablet take one tablet at noon, 2 tablets at 3 PM and 3 tablets at Bedtime albuterol HFA (VENTOLIN HFA) 90 mcg/actuation inhaler Inhale 2 Puffs as instructed every 4 hours as needed for Wheezing/Shortness of Breath. Insulin Syringe-Needle U-100 (BD INSULIN SYRINGE) 1 mL 28 gauge x 1/2 syrg 10 Units once daily. FLOVENT DISKUS 250 mcg/actuation dsdv INHALE ONE PUFF BY MOUTH TWICE DAILY DIRECTED OMEGA-3 FATTY ACIDS (FISH OIL CONCENTRATE ORAL) Take by mouth once daily. desvenlafaxine ER (PRISTIQ) 50 mg 24 hr tablet Take 50 mg by mouth once daily. Lancets lancets test BS twice daily 2 days a week- dx 250.00 - non-insulin risperiDONE orally disintegrating (RISPERDAL M) 2 mg disintegrating tablet Take 2 mg by mouth once daily. blood sugar diagnostic (FREESTYLE LITE STRIPS) test strip test BS twice daily - dx - 250.00 -insulin Yes clonazePAM (KLONOPIN) 1 mg tablet Take 0.5 mg Bid, 1 mg po at HS insulin needles, DISPOSABLE, (PEN NEEDLE) 31 X 5/16 ndle Use one needle per dose. Once per day. Blood-Glucose Meter (FREESTYLE LITE METER) monitoring kit Used once daily to check blood sugar. 250.00 risperidone (RISPERDAL CONSTA) 50 mg/2 mL INTRAMUSC. injection Inject 2 mL intramuscularly every 2 weeks. SPIRIVA WITH HANDIHALER 18 mcg inhalation capsule INHALE CONTENTS OF ONE CAPSULE DAILY USING HANDIHALER DEVICE STOOL SOFTENER 100 mg capsule TAKE 1 CAPSULE TWICE A DAY (Patient not taking: Reported on 03/16/2018) lactulose (CONSTULOSE) 10 gram/15 mL solution Take 30 mL by mouth twice daily. Prn constipation; hold for diarrhea No current facility-administered medications for this visit. 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, pt was on metformin for a while but taken off - pt never told if she had DM or not - Major depressive disorder, recurrent episode, unspecified - Nonspecific elevation of levels of transaminase or lactic acid dehydrogenase (LDH) - LIDA (obstructive sleep apnea) - Pneumonia - Schizophreniform disorder, chronic condition (HCC) - Simple endometrial hyperplasia without atypia mirena IUD 01/2011 PAST SURGICAL HISTORY Procedure Laterality Date - COLONOSCOPY W/BX 12/19/2016 Normal colonoscopy-10 year follow-up - PAST SURGICAL HISTORY OF 1982 corrective jaw surgery - REMOVAL GALLBLADDER 1998 open FAMILY HISTORY Problem Relation Age of Onset - Psychiatry Mother depression - lung cancer [OTHER] Paternal Grandfather - Psychiatry Brother schizophrenia - Diabetes Brother - Hypertension Brother - Psychiatry Sister deperssion Social History Marital status: Single Spouse name: Years of education: 14 Number of children: 0 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 REVIEW OF SYSTEMS All other reviewed and negative other than HPI. VITALS: BP 118/62 Pulse 104 Temp 36.4 ?C (97.5 ?F) (Tympanic) Wt 89 kg (196 lb 3.2 oz) LMP 09/12/2017 SpO2 95% BMI 37.07 kg/m? Last 4 Encounter Wt Readings: Date: Wt: 04/29/2018 89 kg (196 lb 3.2 oz) 03/16/2018 88.5 kg (195 lb) 03/11/2018 88.5 kg (195 lb) 02/08/2018 87.1 kg (192 lb) PHYSICAL EXAMINATION: General appearance: Well appearing, alert, in no acute distress, well-hydrated, well nourished. Skin: Skin color, texture, turgor normal, no suspicious rashes or lesions Head: Normocephalic, no masses, lesions, tenderness or abnormalities Lungs: Lungs clear to auscultation. No wheezing, rhonchi, rales Heart: RRR without murmur, gallop, or rubs. No ectopy Abdomen: Normal abdominal exam, Abdomen soft, non-tender. Bowel sounds normal. No masses, organomegaly Extremities: No deformities, edema, skin discoloration, clubbing or cyanosis. Good capillary refill. Musculoskeletal: No joint swelling, deformity, or tenderness Hose in place. Mentally at baseline. ASSESSMENT/PLAN: 1. Acute diastolic CHF (congestive heart failure) (HCC) - ICD9: 428.31, 428.0, ICD10: I50.31 (primary diagnosis) - appears clinically stable. Check labs. Call if weight gain. - NT PRO BNP 2. Obesity, Class II, BMI 35-39.9 - ICD9: 278.00, ICD10: E66.9 - continue to watch diet. 3. Type 2 diabetes mellitus with diabetic nephropathy, with long-term current use of insulin (HCC) - ICD9: 250.40, 583.81, V58.67, ICD10: E11.21, Z79.4 Controlled. - Continue current medications 4. Chronic obstructive pulmonary disease with acute exacerbation (HCC) - ICD9: 491.21, ICD10: J44.1 - stable. 5. Water intoxication - ICD9: 276.69, ICD10: E87.79 - still folllowing fluid restriction. Follow labs. 6. Mixed hyperlipidemia - ICD9: 272.2, ICD10: E78.2 - to be determined upon return of lab results - Continue current medication. - COMP METABOLIC PANEL - LIPID PANEL, NONFASTING 7. Vitamin D deficiency - ICD9: 268.9, ICD10: E55.9 - check labs. - HGB A1C - VITAMIN D 25 HYDROXY 8. Fatigue, unspecified type - ICD9: 780.79, ICD10: R53.83 - CBC + DIFF - TSH BLD Boris Jones MD RTO in three months and prn. CNOV Observed: 04/29/2018 Status: COMPLETED Source: [place] 9:00 AM [facility] REPOSITORY [facility] BRITTNEE LE ([id number]) 1965 F Date Time Provider Department 04/29/18 9:00 AM BORIS JONES During your visit today, we recorded the following information about you: Temperature Pulse Blood pressure Weight 97.5 degrees 104/minute 118/62 89 kg Boris Jones MD 04/29/2018 10:08 AM Signed Patient presents with: Fatigue Breathing Problem: labored breathing Edema: fluid retention HPI: Patient presents today for office visit for acute visit. Complains of being deathly tired. Staff concerned about fluid retention because she is not losing weight. They reported she sometimes breathes hard but her home health care case manager feels she is breathing normally. No increased cough. No chest pain or increased edema. Weight is relatively stable. Sugars have been overall better. Appetite is stable. She is still seeing psych. Mentally is stable. MEDICATIONS: Current Outpatient Prescriptions: metFORMIN (GLUCOPHAGE) 500 mg tablet TAKE 2 TABLETS BY MOUTH TWICE DAILY WITH MEALS. . pravastatin (PRAVACHOL) 20 mg tablet TAKE 1 TABLET BY MOUTH ONCE DAILY. glipiZIDE (GLUCOTROL) 5 mg tablet TAKE 1 TABLET TWICE A DAY lubiprostone (AMITIZA) 24 mcg capsule Take 1 capsule by mouth twice daily with meals. MILK OF MAGNESIA 400 mg/5 mL suspension TAKE 15ML BY MOUTH DAILY NEEDED FOR CONSTIPATION (FOR NO BOWEL MOVEMENT AFTER 3 LANTUS U-100 INSULIN 100 unit/mL injection Give 24 units subq daily at 4 PM or as directed potassium chloride ER (K-DUR, KLOR-CON) 20 mEq tablet TAKE 1 TABLET BY MOUTH DAILY Ferrous Gluconate 324 mg (36 mg iron) tab Take 1 tablet by mouth twice daily with meals. COMPOUNDED PRESCRIPTION Please discontinue Tylenol ES 500 mg daily at bedtime aspirin, enteric coated (ASPIRIN, ENTERIC COATED) 325 mg EC tablet Take 1 tablet by mouth once daily. Take with food. acetaminophen (TYLENOL EXTRA STRENGTH) 500 mg tablet Take 1 tablet by mouth daily at bedtime. furosemide (LASIX) 20 mg tablet Take 1 tablet by mouth once daily. wheat dextrin (BENEFIBER SUGAR FREE, DEXTRIN,) 3 gram/3.8 gram powd Stir 2 teaspoonfuls into 4-8 oz of beverage or soft food daily Cholecalciferol, Vitamin D3, 1,000 unit cap Take 1 capsule by mouth once daily. cloZAPine (CLOZARIL) 100 mg tablet take one tablet at noon, 2 tablets at 3 PM and 3 tablets at Bedtime albuterol HFA (VENTOLIN HFA) 90 mcg/actuation inhaler Inhale 2 Puffs as instructed every 4 hours as needed for Wheezing/Shortness of Breath. Insulin Syringe-Needle U-100 (BD INSULIN SYRINGE) 1 mL 28 gauge x 1/2 syrg 10 Units once daily. FLOVENT DISKUS 250 mcg/actuation dsdv INHALE ONE PUFF BY MOUTH TWICE DAILY DIRECTED OMEGA-3 FATTY ACIDS (FISH OIL CONCENTRATE ORAL) Take by mouth once daily. desvenlafaxine ER (PRISTIQ) 50 mg 24 hr tablet Take 50 mg by mouth once daily. Lancets lancets test BS twice daily 2 days a week- dx 250.00 - non-insulin risperiDONE orally disintegrating (RISPERDAL M) 2 mg disintegrating tablet Take 2 mg by mouth once daily. blood sugar diagnostic (FREESTYLE LITE STRIPS) test strip test BS twice daily - dx - 250.00 -insulin Yes clonazePAM (KLONOPIN) 1 mg tablet Take 0.5 mg Bid, 1 mg po at HS insulin needles, DISPOSABLE, (PEN NEEDLE) 31 X 5/16 ndle Use one needle per dose. Once per day. Blood-Glucose Meter (FREESTYLE LITE METER) monitoring kit Used once daily to check blood sugar. 250.00 risperidone (RISPERDAL CONSTA) 50 mg/2 mL INTRAMUSC. injection Inject 2 mL intramuscularly every 2 weeks. SPIRIVA WITH HANDIHALER 18 mcg inhalation capsule INHALE CONTENTS OF ONE CAPSULE DAILY USING HANDIHALER DEVICE STOOL SOFTENER 100 mg capsule TAKE 1 CAPSULE TWICE A DAY (Patient not taking: Reported on 03/16/2018) lactulose (CONSTULOSE) 10 gram/15 mL solution Take 30 mL by mouth twice daily. Prn constipation; hold for diarrhea No current facility-administered medications for this visit. 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, pt was on metformin for a while but taken off - pt never told if she had DM or not - Major depressive disorder, recurrent episode, unspecified - Nonspecific elevation of levels of transaminase or lactic acid dehydrogenase (LDH) - LIDA (obstructive sleep apnea) - Pneumonia - Schizophreniform disorder, chronic condition (HCC) - Simple endometrial hyperplasia without atypia mirena IUD 01/2011 PAST SURGICAL HISTORY Procedure Laterality Date - COLONOSCOPY W/BX 12/19/2016 Normal colonoscopy-10 year follow-up - PAST SURGICAL HISTORY OF 1982 corrective jaw surgery - REMOVAL GALLBLADDER 1998 open FAMILY HISTORY Problem Relation Age of Onset - Psychiatry Mother depression - lung cancer [OTHER] Paternal Grandfather - Psychiatry Brother schizophrenia - Diabetes Brother - Hypertension Brother - Psychiatry Sister deperssion Social History Marital status: Single Spouse name: Years of education: 14 Number of children: 0 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 REVIEW OF SYSTEMS All other reviewed and negative other than HPI. VITALS: BP 118/62 Pulse 104 Temp 36.4 ?C (97.5 ?F) (Tympanic) Wt 89 kg (196 lb 3.2 oz) LMP 09/12/2017 SpO2 95% BMI 37.07 kg/m? Last 4 Encounter Wt Readings: Date: Wt: 04/29/2018 89 kg (196 lb 3.2 oz) 03/16/2018 88.5 kg (195 lb) 03/11/2018 88.5 kg (195 lb) 02/08/2018 87.1 kg (192 lb) PHYSICAL EXAMINATION: General appearance: Well appearing, alert, in no acute distress, well-hydrated, well nourished. Skin: Skin color, texture, turgor normal, no suspicious rashes or lesions Head: Normocephalic, no masses, lesions, tenderness or abnormalities Lungs: Lungs clear to auscultation. No wheezing, rhonchi, rales Heart: RRR without murmur, gallop, or rubs. No ectopy Abdomen: Normal abdominal exam, Abdomen soft, non-tender. Bowel sounds normal. No masses, organomegaly Extremities: No deformities, edema, skin discoloration, clubbing or cyanosis. Good capillary refill. Musculoskeletal: No joint swelling, deformity, or tenderness Hose in place. Mentally at baseline. ASSESSMENT/PLAN: 1. Acute diastolic CHF (congestive heart failure) (HCC) - ICD9: 428.31, 428.0, ICD10: I50.31 (primary diagnosis) - appears clinically stable. Check labs. Call if weight gain. - NT PRO BNP 2. Obesity, Class II, BMI 35-39.9 - ICD9: 278.00, ICD10: E66.9 - continue to watch diet. 3. Type 2 diabetes mellitus with diabetic nephropathy, with long-term current use of insulin (HCC) - ICD9: 250.40, 583.81, V58.67, ICD10: E11.21, Z79.4 Controlled. - Continue current medications 4. Chronic obstructive pulmonary disease with acute exacerbation (HCC) - ICD9: 491.21, ICD10: J44.1 - stable. 5. Water intoxication - ICD9: 276.69, ICD10: E87.79 - still folllowing fluid restriction. Follow labs. 6. Mixed hyperlipidemia - ICD9: 272.2, ICD10: E78.2 - to be determined upon return of lab results - Continue current medication. - COMP METABOLIC PANEL - LIPID PANEL, NONFASTING 7. Vitamin D deficiency - ICD9: 268.9, ICD10: E55.9 - check labs. - HGB A1C - VITAMIN D 25 HYDROXY 8. Fatigue, unspecified type - ICD9: 780.79, ICD10: R53.83 - CBC + DIFF - TSH BLD Boris Jones MD RTO in three months and prn. Referring Provider: SELF [200] Allergies As of Date: 04/29/2018 (No Known Allergies) Date Reviewed: 04/29/2018 Reviewed by: Nisha Angelo Ma - Fully Assessed Reason for Visit: Fatigue [46] Breathing Problem [17] Cmt: labored breathing Edema [39] Cmt: fluid retention Primary Visit Diagnosis:Acute diastolic CHF (congestive heart failure) (HCC) [I50.31] Other Visit Diagnoses:Obesity, Class II, BMI 35-39.9 [E66.9] Type 2 diabetes mellitus with diabetic nephropathy, with long-term current use of insulin (HCC) [E11.21, Z79.4] Chronic obstructive pulmonary disease with acute exacerbation (HCC) [J44.1] Water intoxication [E87.79] Mixed hyperlipidemia [E78.2] Vitamin D deficiency [E55.9] Fatigue, unspecified type [R53.83] Order(s):CBC + DIFF [SQCBCDIF] Order #: [id number] FUTURE COMP METABOLIC PANEL [SQCMP] Order #: [id number] FUTURE HGB A1C [RFPRA8X] Order #: [id number] FUTURE VITAMIN D 25 HYDROXY [SQVITD] Order #: [id number] FUTURE NT PRO BNP [SQNTBNP] Order #: [id number] FUTURE TSH BLD [SQTSH] Order #: [id number] FUTURE LIPID PANEL, NONFASTING [SQLIPNF] Order #: [id number] FUTURE Prescriptions as of 04/29/2018 Sig: METFORMIN 500 MG TABLET TAKE 2 TABLETS BY MOUTH TWICE* PRAVASTATIN 20 MG TABLET TAKE 1 TABLET BY MOUTH ONCE D* GLIPIZIDE 5 MG TABLET TAKE 1 TABLET TWICE A DAY LUBIPROSTONE 24 MCG CAPSULE Take 1 capsule by mouth twice* MILK OF MAGNESIA 400 MG/5 ML * TAKE 15ML BY MOUTH DAILY N* LANTUS U-100 INSULIN 100 UNIT* Give 24 units subq daily at 4* POTASSIUM CHLORIDE ER 20 MEQ * TAKE 1 TABLET BY MOUTH DAILY FERROUS GLUCONATE 324 MG (36 * Take 1 tablet by mouth twice * COMPOUNDED PRESCRIPTION Please discontinue Tylenol ES* ASPIRIN 325 MG TABLET,DELAYED* Take 1 tablet by mouth once d* ACETAMINOPHEN 500 MG TABLET Take 1 tablet by mouth daily * FUROSEMIDE 20 MG TABLET Take 1 tablet by mouth once d* WHEAT DEXTRIN 3 GRAM/3.8 GRAM* Stir 2 teaspoonfuls into 4-8 * CHOLECALCIFEROL (VITAMIN D3) * Take 1 capsule by mouth once * CLOZAPINE 100 MG TABLET take one tablet at noon, 2 ta* ALBUTEROL SULFATE HFA 90 MCG/* Inhale 2 Puffs as instructed * INSULIN SYRINGE-NEEDLE U-100 * 10 Units once daily. FLOVENT DISKUS 250 MCG/ACTUAT* INHALE ONE PUFF BY MOUTH TWIC* FISH OIL CONCENTRATE ORAL Take by mouth once daily. DESVENLAFAXINE SUCCINATE ER 5* Take 50 mg by mouth once ziggy* LANCETS test BS twice daily 2 days a * RISPERIDONE 2 MG DISINTEGRATI* Take 2 mg by mouth once daily. BLOOD SUGAR DIAGNOSTIC STRIPS test BS twice daily - dx - 25* CLONAZEPAM 1 MG TABLET Take 0.5 mg Bid, 1 mg po at HS PEN NEEDLE, DIABETIC 31 GAUGE* Use one needle per dose. Once* BLOOD-GLUCOSE METER KIT Used once daily to check bloo* * RISPERIDONE MICROSPHERES 50 M* Inject 2 mL intramuscularly e* STOOL SOFTENER 100 MG CAPSULE TAKE 1 CAPSULE TWICE A DAY Patient not taking: Reported on 03/16/2018 Problem List As Of Date 04/29/2018 Noted Resolved Schizophreniform disorder, chronic condition (H* Priority: Mild More... Other abnormal glucose [R73.09] 04/29/2018 Priority: A More... DM w/o Complication Type II [E11.9] INVALID FOR*02/22/2014 Priority: Moderate Gastritis [K29.70] INVALID FOR* Routine general medical examination at a health*INVALID FOR*11/26/2011 Class: Chronic More... Routine gynecological examination [Z01.419] INVALID FOR*11/26/2011 Class: Chronic More... Vitamin D deficiency [E55.9] INVALID FOR* Priority: A More... Liver Function Test Abnormality [R94.5] INVALID FOR* More... 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 Encounter for screening for malignant neoplasm *INVALID FOR* Postmenopausal bleeding [N95.0] INVALID FOR* More... Acute diastolic CHF (congestive heart failure) *INVALID FOR* More... Obesity, Class II, BMI 35-39.9 [E66.9] INVALID FOR* Medications Discontinued During This Encounter SPIRIVA WITH HANDIHALER 18 mcg inhal* 30 c* 3 04/01/2018 04/29/2018 Cmt: Maximum Refills Reached Sig: INHALE CONTENTS OF ONE CAPSULE DAILY USING HANDIHALER DEVICE Disc: Reason for discontinue is not on file. lactulose (CONSTULOSE) 10 gram/15 mL* 3 Aibodun* 11 09/08/2017 04/29/2018 Route: ORAL Sig: Take 30 mL by mouth twice daily. Prn constipation; hold for diarrhea Disc: Reason for discontinue is not on file. Disposition: Return in about 3 months (around 07/30/2018). Follow-up and Disposition History Recorded Encounter Status:Closed by BORIS JONES MD on 04/29/18 CBC W/DIFF, AUTOMATED Collected: 04/14/2018 Status: F Source: [place] 9:14 AM [facility] REPOSITORY TYPE CODE TESTS RESULT OUT OF RANGE REFERENCE UNITS LAB L100.1000 4.4-11.0 K/mm3 Normal WBC 9.4 LAB L100.1200 4.2-5.4 M/mm3 Normal RBC 4.55 LAB L100.1300 12.0-15.0 g/dl Normal HGB 13.1 LAB L100.1400 37-47 % Normal HCT 40.1 LAB L100.1500 81-99 fL Normal MCV 88.1 LAB L100.1600 27.0-32.0 pg Normal MCH 28.8 LAB L100.1700 32-36 g/gl Normal MCHC 32.7 LAB L100.1810 11.6-14.6 % Normal RDW CV 14.6 LAB L100.1820 35.1-43.9 fl High RDW SD 46.7 LAB L100.1900 150-450 K/mm3 Normal PLT 216 LAB L100.2000 6.2-12.0 fl Normal MPV 10.6 LAB L100.2100 47-70 % Normal NEUT% 67.6 LAB L100.2200 19-41 % Normal LY% 23.9 LAB L100.2300 0-10 % Normal MONO% 8.1 LAB L100.2400 0-5 % Normal EO% 0.0 LAB L100.2500 0-1 % Normal BASO% 0.2 LAB L100.2550 0.0-0.9 % Normal IM GRAN % 0.200 Result Comment: IG% - Immature Granulocytes (promyelocytes, myelocytes and metamyelocytes) > 1% indicates that a LEFT SHIFT is Present. LAB L100.2620 2.0-7.7 X10 3/uL Normal Absolute Neut 6.4 LAB L100.2720 0.83-4.51 X10 3/ul Normal Absolute Lymph 2.26 Performed By: #### L100.0100 #### [facility] [address] [place], [address] CNCO Observed: 04/09/2018 Status: COMPLETED Source: [place] 12:00 AM [facility] REPOSITORY Letter Text Boris Jones MD [facility] Brittnee Le [address] [facility] [address] [facility] #: [id number] 04/09/2018 Dear Ms. Le, I have received the results of your recent tests. The results of your Complete Blood Count tests done at [facility] were normal. We can discuss this at your next visit. Please do not hesitate to contact me with any questions. Sincerely, Boris Jones MD [facility] Medicine Department electronically signed to expedite mailing CBC W/DIFF, AUTOMATED Collected: 04/08/2018 Status: F Source: [place] 8:57 AM [facility] REPOSITORY TYPE CODE TESTS RESULT OUT OF RANGE REFERENCE UNITS LAB L100.1000 4.4-11.0 K/mm3 Normal WBC 8.4 LAB L100.1200 4.2-5.4 M/mm3 Normal RBC 4.68 LAB L100.1300 12.0-15.0 g/dl Normal HGB 13.0 LAB L100.1400 37-47 % Normal HCT 41.1 LAB L100.1500 81-99 fL Normal MCV 87.8 LAB L100.1600 27.0-32.0 pg Normal MCH 27.8 LAB L100.1700 32-36 g/gl Low MCHC 31.6 LAB L100.1810 11.6-14.6 % High RDW CV 14.8 LAB L100.1820 35.1-43.9 fl High RDW SD 47.0 LAB L100.1900 150-450 K/mm3 Normal PLT 214 LAB L100.2000 6.2-12.0 fl Normal MPV 10.7 LAB L100.2100 47-70 % Normal NEUT% 68.8 LAB L100.2200 19-41 % Normal LY% 25.2 LAB L100.2300 0-10 % Normal MONO% 5.8 LAB L100.2400 0-5 % Normal EO% 0.0 LAB L100.2500 0-1 % Normal BASO% 0.1 LAB L100.2550 0.0-0.9 % Normal IM GRAN % 0.100 Result Comment: IG% - Immature Granulocytes (promyelocytes, myelocytes and metamyelocytes) > 1% indicates that a LEFT SHIFT is Present. LAB L100.2620 2.0-7.7 X10 3/uL Normal Absolute Neut 5.8 LAB L100.2720 0.83-4.51 X10 3/ul Normal Absolute Lymph 2.13 Performed By: #### L100.0100 #### [facility] [place], [address] CBC AND DIFFERENTIAL Collected: 04/08/2018 Status: F Source: [place] 8:57 AM [facility] REPOSITORY TYPE CODE TESTS RESULT OUT OF REFERENCE UNITS RANGE LAB WBC 3.70-11.00 k/uL Test WBC sent to [facility]. Result Comment: Account Credited [facility] LAB RBC 3.90-5.20 m/uL Test sent RBC to [facility]. Result Comment: [facility] Credited [facility] LAB HGB 11.5-15.5 g/dL Hemoglobin Test sent to [facility]. Result Comment: [facility]redited [facility] LAB HCT 36.0-46.0 % Hematocrit Test sent to [facility]. Result Comment: [facility] LAB MCV 80.0-100.0 fL Test sent MCV to [facility]. Result Comment: [facility]redited [facility] LAB MCH 26.0-34.0 pG Test sent MCH to [facility]. Result Comment: [facility]redited [facility] LAB MCHC 30.5-36.0 g/dL Test MCHC sent to [facility]. Result Comment: [facility]redited [facility] LAB RDWCV 11.5-15.0 % Test RDW-CV sent to [facility]. Result Comment: [facility]redited [facility] LAB PLTCT 150-400 k/uL Test Platelet Count sent to [facility]. Result Comment: [facility]redited [facility] LAB MPV 9.0-12.7 fL Test sent MPV to [facility]. Result Comment: [facility]redited [facility] LAB DORI Recheck Test sent to [facility]. Result Comment: [facility]redited [facility] LAB [facility]EUT % [facility] Result Comment: Account Credited [facility] LAB AANEUT 1.45-7.50 k/uL Test Abs sent to [facility]. Result Comment: Account Credited [facility] LAB ALYMP % [facility]. Result Comment: Account Credited [facility] LAB AALYMP 1.00-4.00 k/uL Test Abs Lymph sent to [facility]. Result Comment: Account Credited [facility] LAB AMONO % [facility] Result Comment: Account Credited [facility] LAB AAMONO <0.87 k/uL Test sent Abs [place] to [facility]. Result Comment: Account Credited HIDE LAB AEOS % Test sent to Eosin% [facility]. Result Comment: Account Credited HIDE LAB AAEOS <0.46 k/uL Test sent Abs Eosin to [facility]. Result Comment: Account Credited HIDE LAB ABASO % Test sent to Baso% [facility]. Result Comment: Account Credited HIDE LAB AABASO <0.11 k/uL Test sent Abs Baso to [facility]. Result Comment: Account Credited HIDE LAB REVW Test sent to Review [facility]. Result Comment: Account Credited HIDE LAB CBCCOM Comment Test sent to [facility]. Result Comment: Account Credited HIDE DOWNTIME REPORT Observed: 04/02/2018 Status: F Source: [place] 2:10 PM [facility] Medical Records Department [address] [place] [address] Downtime Report MR#: [id number] Acct: [id number] Name: BRITTNEE LE Rep #: [id number] : 1965 52 From: Sukhi Sanchez PCP: Boris Jones MD Status: REG CLI This patient was seen during an EMR downtime March 16, 2018 - March 23, 2018. This patient may have a combination of paper and electronic documentation or all paper documentation. All documentation is viewable within the e-chart portion of [employer] for each patient visit. DOWNTIME REPORT Observed: 04/02/2018 Status: F Source: [place] 12:20 PM [facility] Medical Records Department [address] [place] [address] Downtime Report MR#: [id number] Acct: [id number] Name: REYBRITTNEE Shawanda Rep #: [id number] : 1965 52 From: Sukhi Sanchez PCP: Boris Jones MD Status: REG CLI This patient was seen during an EMR downtime March 16, 2018 - March 23, 2018. This patient may have a combination of paper and electronic documentation or all paper documentation. All documentation is viewable within the e-chart portion of [employer] for each patient visit. PROGRESS Observed: 03/26/2018 Status: COMPLETED Source: [place] 1:04 PM [facility] REPOSITORY HNO ID: [id number] Author: Boris Jones Service: (none) Author Type: Physician Type: Progress Notes Filed: 03/26/2018 5:28 PM Note Text: Sugars are ok. PROGRESS Observed: 03/26/2018 Status: COMPLETED Source: [place] 12:39 PM [facility] REPOSITORY HNO ID: [id number] Author: Asia Crews) Indra Service: (none) Author Type: Registered Nurse Type: Progress Notes Filed: 03/26/2018 12:44 PM Note Text: PRIMARY CARE COORDINATION FOLLOW-UP NOTE Provider Action/FYI Pt is feeling better and not fatigued Note Wt and Blood Sugars below Patient identified by name and date of . YES Spoke to MICHELE Gongora at [facility] Summary: Brittnee Le is a 52 year old female who reports glucose readings as noted. DATE 03/26 03/25 03/24 03/23 03/22 03/21 Fasting 128 225 138 130 132 100 PM 112 132 148 162 93 WT 195 194 195 195 197 Any low blood sugars during this period of reporting No Patient's diabetes medications as follows: glipiZIDE (GLUCOTROL) 5 mg TAKE 1 TABLET TWICE A DAY metFORMIN (GLUCOPHAGE) 500 mg TAKE 2 TABLETS BY MOUTH TWICE DAILY WITH MEALS. . LANTUS U-100 INSULIN 100 unit/mL Give 24 units subq daily at 4 PM or as directed Savings Teller plan for next outreach: Will follow up next month Signature Asia Burrell RN March 26, 2018 CNPTOUTREACH Observed: 03/26/2018 Status: COMPLETED Source: [place] 12:00 AM [facility] REPOSITORY Patient Outreach (FAMPWS) BRITTNEE LE ([id number]) 1965 F Date Time Provider Department 03/26/18 ASIA BURRELL) CHRISTIAN During your visit today, we recorded the following information about you: Asia Burrell RN 03/26/2018 12:44 PM Signed PRIMARY CARE COORDINATION FOLLOW-UP NOTE Provider Action/FYI Pt is feeling better and not fatigued Note Wt and Blood Sugars below Patient identified by name and date of . YES Spoke to MICHELE Gongora at [facility] Summary: Brittnee Le is a 52 year old female who reports glucose readings as noted. DATE 03/26 03/25 03/24 03/23 03/22 03/21 Fasting 128 225 138 130 132 100 PM 112 132 148 162 93 WT 195 194 195 195 197 Any low blood sugars during this period of reporting No Patient's diabetes medications as follows: glipiZIDE (GLUCOTROL) 5 mg TAKE 1 TABLET TWICE A DAY metFORMIN (GLUCOPHAGE) 500 mg TAKE 2 TABLETS BY MOUTH TWICE DAILY WITH MEALS. . LANTUS U-100 INSULIN 100 unit/mL Give 24 units subq daily at 4 PM or as directed Savings Teller plan for next outreach: Will follow up next month Signature Asia Burrell RN March 26, 2018 Boris Jones MD 03/26/2018 5:28 PM Signed Sugars are ok. 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] Prescriptions as of 03/26/2018 Sig: CEFUROXIME AXETIL 250 MG TABL* Take 1 tablet by mouth twice * LUBIPROSTONE 24 MCG CAPSULE Take 1 capsule by mouth twice* MILK OF MAGNESIA 400 MG/5 ML * TAKE 15ML BY MOUTH DAILY N* LANTUS U-100 INSULIN 100 UNIT* Give 24 units subq daily at 4* POTASSIUM CHLORIDE ER 20 MEQ * TAKE 1 TABLET BY MOUTH DAILY FERROUS GLUCONATE 324 MG (36 * Take 1 tablet by mouth twice * COMPOUNDED PRESCRIPTION Please discontinue Tylenol ES* Patient not taking: Reported on 03/16/2018 METFORMIN 500 MG TABLET TAKE 2 TABLETS BY MOUTH TWICE* STOOL SOFTENER 100 MG CAPSULE TAKE 1 CAPSULE TWICE A DAY Patient not taking: Reported on 03/16/2018 PRAVASTATIN 20 MG TABLET TAKE 1 TABLET BY MOUTH ONCE D* ASPIRIN 325 MG TABLET,DELAYED* Take 1 tablet by mouth once d* ACETAMINOPHEN 500 MG TABLET Take 1 tablet by mouth daily * FUROSEMIDE 20 MG TABLET Take 1 tablet by mouth once d* WHEAT DEXTRIN 3 GRAM/3.8 GRAM* Stir 2 teaspoonfuls into 4-8 * CHOLECALCIFEROL (VITAMIN D3) * Take 1 capsule by mouth once * CLOZAPINE 100 MG TABLET take one tablet at noon, 2 ta* GLIPIZIDE 5 MG TABLET TAKE 1 TABLET TWICE A DAY ALBUTEROL SULFATE HFA 90 MCG/* Inhale 2 Puffs as instructed * LACTULOSE 10 GRAM/15 ML ORAL * Take 30 mL by mouth twice mainor* INSULIN SYRINGE-NEEDLE U-100 * 10 Units once daily. FLOVENT DISKUS 250 MCG/ACTUAT* INHALE ONE PUFF BY MOUTH TWIC* FISH OIL CONCENTRATE ORAL Take by mouth once daily. DESVENLAFAXINE SUCCINATE ER 5* Take 50 mg by mouth once ziggy* LANCETS test BS twice daily 2 days a * RISPERIDONE 2 MG DISINTEGRATI* Take 2 mg by mouth once daily. BLOOD SUGAR DIAGNOSTIC STRIPS test BS twice daily - dx - 25* CLONAZEPAM 1 MG TABLET Take 0.5 mg Bid, 1 mg po at HS PEN NEEDLE, DIABETIC 31 GAUGE* Use one needle per dose. Once* BLOOD-GLUCOSE METER KIT Used once daily to check bloo* * RISPERIDONE MICROSPHERES 50 M* Inject 2 mL intramuscularly e* Problem List As Of Date 03/26/2018 Noted Resolved Schizophreniform disorder, chronic condition (H* Priority: Mild More... Other abnormal glucose [R73.09] Priority: A More... DM w/o Complication Type II [E11.9] INVALID FOR*02/22/2014 Priority: Moderate Gastritis [K29.70] INVALID FOR* Routine general medical examination at a health*INVALID FOR*11/26/2011 Class: Chronic More... Routine gynecological examination [Z01.419] INVALID FOR*11/26/2011 Class: Chronic More... Vitamin D deficiency [E55.9] INVALID FOR* Priority: A More... Liver Function Test Abnormality [R94.5] INVALID FOR* More... 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 Encounter for screening for malignant neoplasm *INVALID FOR* Postmenopausal bleeding [N95.0] INVALID FOR* More... Acute diastolic CHF (congestive heart failure) *INVALID FOR* More... Obesity, Class II, BMI 35-39.9 [E66.9] INVALID FOR* Encounter Status:Closed by ASIA BURRELL on 03/26/18 PROGRESS Observed: 03/20/2018 Status: COMPLETED Source: [place] 12:06 PM [facility] REPOSITORY HNO ID: [id number] Author: Asia (Ramón) Indra Service: (none) Author Type: Registered Nurse Type: Progress Notes Filed: 03/20/2018 12:08 PM Note Text: PRIMARY CARE COORDINATION FOLLOW-UP NOTE Provider Action/FYI Wheezing and cough better, still fatigued Patient identified by name and date of . YES Spoke to patient and Shereen at [facility] Summary: States pt is feeling better, no wheezing and infrequent cough. Still reports fatigue and resting more. Informed WBC up slightly and repeat labs to be done in 3 weeks. Savings Teller plan for next outreach: Will follow up one week Signature Asia Burrell RN March 20, 2018 CNPTOUTREACH Observed: 03/20/2018 Status: COMPLETED Source: [place] 12:00 AM [facility] REPOSITORY Patient Outreach (FAMPWS) BRITTNEE LE ([id number]) 1965 F Date Time Provider Department 03/20/18 ASIA BURRELLRN) CHRISTIAN During your visit today, we recorded the following information about you: Asia Burrell RN 03/20/2018 12:08 PM Signed PRIMARY CARE COORDINATION FOLLOW-UP NOTE Provider Action/FYI Wheezing and cough better, still fatigued Patient identified by name and date of . YES Spoke to patient and Shereen at [facility] Summary: States pt is feeling better, no wheezing and infrequent cough. Still reports fatigue and resting more. Informed WBC up slightly and repeat labs to be done in 3 weeks. 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] Prescriptions as of 03/20/2018 Sig: PREDNISONE 20 MG TABLET Take 1 tablet by mouth once d* CEFUROXIME AXETIL 250 MG TABL* Take 1 tablet by mouth twice * LUBIPROSTONE 24 MCG CAPSULE Take 1 capsule by mouth twice* MILK OF MAGNESIA 400 MG/5 ML * TAKE 15ML BY MOUTH DAILY N* LANTUS U-100 INSULIN 100 UNIT* Give 24 units subq daily at 4* POTASSIUM CHLORIDE ER 20 MEQ * TAKE 1 TABLET BY MOUTH DAILY FERROUS GLUCONATE 324 MG (36 * Take 1 tablet by mouth twice * COMPOUNDED PRESCRIPTION Please discontinue Tylenol ES* Patient not taking: Reported on 03/16/2018 METFORMIN 500 MG TABLET TAKE 2 TABLETS BY MOUTH TWICE* STOOL SOFTENER 100 MG CAPSULE TAKE 1 CAPSULE TWICE A DAY Patient not taking: Reported on 03/16/2018 PRAVASTATIN 20 MG TABLET TAKE 1 TABLET BY MOUTH ONCE D* ASPIRIN 325 MG TABLET,DELAYED* Take 1 tablet by mouth once d* ACETAMINOPHEN 500 MG TABLET Take 1 tablet by mouth daily * FUROSEMIDE 20 MG TABLET Take 1 tablet by mouth once d* WHEAT DEXTRIN 3 GRAM/3.8 GRAM* Stir 2 teaspoonfuls into 4-8 * CHOLECALCIFEROL (VITAMIN D3) * Take 1 capsule by mouth once * CLOZAPINE 100 MG TABLET take one tablet at noon, 2 ta* GLIPIZIDE 5 MG TABLET TAKE 1 TABLET TWICE A DAY ALBUTEROL SULFATE HFA 90 MCG/* Inhale 2 Puffs as instructed * LACTULOSE 10 GRAM/15 ML ORAL * Take 30 mL by mouth twice mainor* INSULIN SYRINGE-NEEDLE U-100 * 10 Units once daily. FLOVENT DISKUS 250 MCG/ACTUAT* INHALE ONE PUFF BY MOUTH TWIC* FISH OIL CONCENTRATE ORAL Take by mouth once daily. DESVENLAFAXINE SUCCINATE ER 5* Take 50 mg by mouth once ziggy* LANCETS test BS twice daily 2 days a * RISPERIDONE 2 MG DISINTEGRATI* Take 2 mg by mouth once daily. BLOOD SUGAR DIAGNOSTIC STRIPS test BS twice daily - dx - 25* CLONAZEPAM 1 MG TABLET Take 0.5 mg Bid, 1 mg po at HS PEN NEEDLE, DIABETIC 31 GAUGE* Use one needle per dose. Once* BLOOD-GLUCOSE METER KIT Used once daily to check bloo* * RISPERIDONE MICROSPHERES 50 M* Inject 2 mL intramuscularly e* Problem List As Of Date 03/20/2018 Noted Resolved Schizophreniform disorder, chronic condition (H* Priority: Mild More... Other abnormal glucose [R73.09] Priority: A More... DM w/o Complication Type II [E11.9] INVALID FOR*02/22/2014 Priority: Moderate Gastritis [K29.70] INVALID FOR* Routine general medical examination at a [facility]*INVALID FOR*11/26/2011 Class: Chronic More... Routine gynecological examination [Z01.419] INVALID FOR*11/26/2011 Class: Chronic More... Vitamin D deficiency [E55.9] INVALID FOR* Priority: A More... Liver Function Test Abnormality [R94.5] INVALID FOR* More... 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 Encounter for screening for malignant neoplasm *INVALID FOR* Postmenopausal bleeding [N95.0] INVALID FOR* More... Acute diastolic CHF (congestive heart failure) *INVALID FOR* More... Obesity, Class II, BMI 35-39.9 [E66.9] INVALID FOR* Encounter Status:Closed by ASIA BURRELL on 03/20/18 CBC W/DIFF, AUTOMATED Collected: 03/19/2018 Status: F Source: [place] 9:40 AM [facility] REPOSITORY Order Comment: RESULT(S) PREVIOUSLY REPORTED ON MANUAL REQUISITION DURING DOWNTIME. TYPE CODE TESTS RESULT OUT OF RANGE REFERENCE UNITS LAB L100.1000 4.4-11.0 K/mm3 High WBC 13.9 LAB L100.1200 4.2-5.4 M/mm3 Normal RBC 4.86 LAB L100.1300 12.0-15.0 g/dl Normal HGB 13.9 LAB L100.1400 37-47 % Normal HCT 42.7 LAB L100.1500 81-99 fL Normal MCV 87.9 LAB L100.1600 27.0-32.0 pg Normal MCH 28.6 LAB L100.1700 32-36 g/gl Normal MCHC 32.6 LAB L100.1810 11.6-14.6 % Normal RDW CV 14.4 LAB L100.1820 35.1-43.9 fl High RDW SD 46.4 LAB L100.1900 150-450 K/mm3 Normal PLT 233 LAB L100.2000 6.2-12.0 fl Normal MPV 10.6 LAB L100.2100 47-70 % Normal NEUT% 64.4 LAB L100.2200 19-41 % Normal LY% 28.5 LAB L100.2300 0-10 % Normal MONO% 6.6 LAB L100.2400 0-5 % Normal EO% 0.1 LAB L100.2500 0-1 % Normal BASO% 0.1 LAB L100.2550 0.0-0.9 % Normal IM GRAN % 0.300 Result Comment: IG% - Immature Granulocytes (promyelocytes, myelocytes and metamyelocytes) > 1% indicates that a LEFT SHIFT is Present. LAB L100.2620 2.0-7.7 X10 3/uL High Absolute Neut 8.9 LAB L100.2720 0.83-4.51 X10 3/ul Normal Absolute Lymph 3.95 Performed By: #### L100.0100 #### [facility] [address] [place] [address]. [place], [address] XR CHEST 2V FRONTAL/LAT Observed: 03/16/2018 Status: F Source: [place] 11:40 AM [facility] REPOSITORY * * *Final Report* * * DATE OF EXAM: Mar 16 2018 11:40AM WRX [id number] - XR CHEST 2V FRONTAL/LAT / PROCEDURE REASON: Wheezing * * * * Physician Interpretation * * * * EXAMINATION: CHEST RADIOGRAPH (2 VIEW FRONTAL and LATERAL) Clinical History: Wheezing MQ: XC2_5 Comparison: XR 10/10/2017 and 03/06/2016 RESULT: Lines, Tubes, and Devices: N/A Lungs and Pleura: Overall unchanged since the prior study. Mild prominence of interstitial markings throughout both lungs. No new consolidation. No pulmonary edema. No pleural effusion. No pneumothorax. Cardiomediastinal silhouette: Stable contour. Other: Bones are intact. IMPRESSION: No acute abnormality. 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: PSCB Transcribe Date/Time: Mar 16 2018 1:47P Dictated by : HUGH WILSON MD This examination was interpreted and the report reviewed and electronically signed by: HUGH WILSON MD on Mar 16 2018 1:50PM EST [id number] PROGRESS Observed: 03/16/2018 Status: COMPLETED Source: [place] 11:32 AM [facility] REPOSITORY HNO ID: [id number] Author: Pedro Moreno) Nancy Blackwell Service: (none) Author Type: [employer] Vat Worker Type: Progress Notes Filed: 03/16/2018 11:40 AM Note Text: Radiology Service Progress Note PATIENT NAME: Brittnee Le DATE OF SERVICE: March 16, 2018 TIME: 11:32 AM PATIENT IDENTITY VERIFICATION COMPLETED USING TWO (2) METHODS: Patient confirmed name verbally and Date of . PATIENT GENDER DATA: Female. status: : No status: NO. PATIENT RELEVANT IMPLANT DATA REVIEWED: Not Applicable RADIOLOGY DEPARTMENT: General X-ray: Exam(s) Completed: Chest X-Ray PERIPHERAL IV DATA: Not applicable SIGNED BY: RT Nadeem March 16, 2018 11:32 AM CBC AND DIFFERENTIAL Collected: 03/16/2018 Status: F Source: [place] 10:45 AM [facility] REPOSITORY TYPE CODE TESTS RESULT OUT OF REFERENCE UNITS RANGE LAB WBC 3.70-11.00 k/uL Test WBC sent to [facility]. Result Comment: Account Credited [facility] RBC 3.90-5.20 m/uL Test sent RBC to [facility]. Result Comment: [facility] HGB 11.5-15.5 g/dL Hemoglobin Test sent to [facility]. Result Comment: [facility] HCT 36.0-46.0 % Hematocrit Test sent to [facility]. Result Comment: [facility] MCV 80.0-100.0 fL Test sent MCV to [facility]. Result Comment: [facility] MCH 26.0-34.0 pG Test sent MCH to [facility]. Result Comment: [facility] MCHC 30.5-36.0 g/dL Test MCHC sent to [facility]. Result Comment: [facility] RDWCV 11.5-15.0 % Test RDW-CV sent to [facility]. Result Comment: [facility] PLTCT 150-400 k/uL Test Platelet Count sent to [facility]. Result Comment: [facility] MPV 9.0-12.7 fL Test sent MPV to [facility]. Result Comment: [facility] DORI Recheck Test sent to [facility]. Result Comment: [facility]EUT % [facility] Result Comment: [facility] AANEUT 1.45-7.50 k/uL Test Abs sent to [facility]. Result Comment: [facility] ALYMP % [facility] Result Comment: [facility]redited [facility] AALYMP 1.00-4.00 k/uL Test Abs Lymph sent to [facility]. Result Comment: [facility] AMONO % Test sent to [place]% [facility]. Result Comment: [facility]redited [facility] AAMONO <0.87 k/uL Test sent Abs [place] to [facility]. Result Comment: [facility]redited [facility] AEOS % Test sent to [place]% [facility]. Result Comment: [facility]redited [facility] AAEOS <0.46 k/uL Test sent Abs Eosin to [facility]. Result Comment: [facility]redited [facility] ABASO % [facility] Result Comment: [facility]redited [facility] AABASO <0.11 k/uL Test sent Abs Baso to [facility]. Result Comment: [facility]redited [facility] REVW Test sent to Review [facility]. Result Comment: [facility] CBCCOM Comment Test sent to [facility]. Result Comment: Account Credited CLAUDE BASIC METABOLIC PANL Collected: 03/16/2018 Status: F Source: [place] 10:45 AM [facility] TYPE CODE TESTS RESULT OUT OF REFERENCE UNITS RANGE LAB GLU 74-99 mg/dL Test Glucose sent to [facility]. Result Comment: Account Credited [facility] BUN 7-21 mg/dL Test sent BUN to [facility]. Result Comment: [facility]redited [facility] CRET 0.58-0.96 mg/dL Creatinine Test sent to [facility]. Result Comment: [facility] NA 136-144 mmol/L Test Sodium sent to [facility]. Result Comment: [facility] K 3.7-5.1 mmol/L Test Potassium sent to [facility]. Result Comment: [facility] CL 97-105 mmol/L Test Chloride sent to [facility]. Result Comment: [facility] CO2 22-30 mmol/L Test sent CO2 to [facility]. Result Comment: [facility] AGAP 9-18 mmol/L Test sent Anion Gap to [facility]. Result Comment: [facility] CA 8.5-10.2 mg/dL Test Calcium, Total sent to [facility]. Result Comment: [facility] GFRAA eGFR- Amer. Test sent to [facility]. Result Comment: [facility] GFRNAA . eGFR-All Test sent Other Races to [facility]. Result Comment: [facility] GFRPED eGFR-Ped. Test sent Factor to [facility]. Result Comment: Account Credited CLAUDE BASIC METABOLIC Collected: 03/16/2018 Status: F Source: [place] PROFILE (BMP) 10:27 AM [facility] REPOSITORY Order Comment: RESULT(S) PREVIOUSLY REPORTED ON MANUAL REQUISITION DURING DOWNTIME. TYPE CODE TESTS RESULT OUT OF RANGE REFERENCE UNITS LAB L501.0100 74-106 mg/dL Normal GLU 84 Result Comment: Please note revised GLUCOSE reference range effective 2017. LAB L501.1000 7-18 mg/dL Normal BUN 10 LAB L501.1100 0.55-1.02 mg/dL Normal CREAT,SERUM 0.62 Result Comment: The validity of the calculated GFR AND GFRAA in patients over 70 years has not been determined. Clinical correlation is essential. LAB L501.1110 >60 mL/min Normal EST GFR 107 LAB L501.1115 >60 mL/min Normal EST GFR - AA 130 LAB L501.1300 10-20 RATIO Normal BUN/CRE 16.1 LAB L501.2200 8.5-10.1 mg/dL Normal CA 9.0 LAB L501.5300 136-145 mmol/L Normal NA 138 LAB L501.5600 3.5-5.1 mmol/L Normal K 4.1 LAB L501.5900 98-107 mmol/L Normal CL 101 LAB L501.6100 21.0-32.0 mmol/L Normal CO2 25.0 LAB L501.6200 5-15 Normal GAP 12 Performed By: #### L500.2500 #### [facility] [address] [place], [address] CBC W/DIFF, AUTOMATED Collected: 03/16/2018 Status: F Source: [place] 10:27 AM [facility] REPOSITORY Order Comment: RESULT(S) PREVIOUSLY REPORTED ON MANUAL REQUISITION DURING DOWNTIME. TYPE CODE TESTS RESULT OUT OF RANGE REFERENCE UNITS LAB L100.1000 4.4-11.0 K/mm3 High WBC 14.0 LAB L100.1200 4.2-5.4 M/mm3 Normal RBC 4.75 LAB L100.1300 12.0-15.0 g/dl Normal HGB 13.6 LAB L100.1400 37-47 % Normal HCT 42.6 LAB L100.1500 81-99 fL Normal MCV 89.7 LAB L100.1600 27.0-32.0 pg Normal MCH 28.6 LAB L100.1700 32-36 g/gl Low MCHC 31.9 LAB L100.1810 11.6-14.6 % Normal RDW CV 14.6 LAB L100.1820 35.1-43.9 fl High RDW SD 47.7 LAB L100.1900 150-450 K/mm3 Normal PLT 200 LAB L100.2000 6.2-12.0 fl Normal MPV 11.1 LAB L100.2100 47-70 % High NEUT% 73.6 LAB L100.2200 19-41 % Low LY% 18.8 LAB L100.2300 0-10 % Normal MONO% 7.2 LAB L100.2400 0-5 % Normal EO% 0.1 LAB L100.2500 0-1 % Normal BASO% 0.1 LAB L100.2550 0.0-0.9 % Normal IM GRAN % 0.200 Result Comment: IG% - Immature Granulocytes (promyelocytes, myelocytes and metamyelocytes) > 1% indicates that a LEFT SHIFT is Present. LAB L100.2620 2.0-7.7 X10 3/uL High Absolute Neut 10.3 LAB L100.2720 0.83-4.51 X10 3/ul Normal Absolute Lymph 2.64 Performed By: #### L100.0100 #### [facility] [address] [place], [place], [address] PROGRESS Observed: 03/16/2018 Status: COMPLETED Source: [place] 9:57 AM [facility] [place] REPOSITORY HNO ID: [id number] Author: Boris Jones Service: (none) Author Type: Physician Type: Progress Notes Filed: 03/16/2018 10:31 AM Note Text: Patient presents with: Cough: x 2 days Fatigue: all over HPI: Patient presents today for office visit for an acute visit. Nursing Notes: Nisha Angelo Ma 03/16/2018 9:58 AM Signed DURATION OF SYMPTOMS: Began 2 days ago ONSET OF SYMPTOMS: Sudden FEVER: No BODYACHES: Mild TIREDNESS: Mild HEADACHE: No EAR SYMPTOMS: Pain in right STUFFY NOSE: No POST NASAL DRIP: No SNEEZING: No SORE THROAT: Yes - mild COUGH: Yes, dry CHEST DISCOMFORT: No SHORTNESS OF BREATH: No WHEEZING: a little SPUTUM PRODUCTION: No OVER THE COUNTER MEDICATION PATIENT IS TAKING: No OTC use ALLERGIES VERIFIED WITH PATIENT: No DOCUMENTED ALLERGIES: Patient has no known allergies. STATUS: Patient states she is not No nausea or vomiting or diarrhea. No abd pain. Sugars have been ok. MEDICATIONS: Current Outpatient Prescriptions: lubiprostone (AMITIZA) 24 mcg capsule Take 1 capsule by mouth twice daily with meals. MILK OF MAGNESIA 400 mg/5 mL suspension TAKE 15ML BY MOUTH DAILY NEEDED FOR CONSTIPATION (FOR NO BOWEL MOVEMENT AFTER 3 LANTUS U-100 INSULIN 100 unit/mL injection Give 24 units subq daily at 4 PM or as directed potassium chloride ER (K-DUR, KLOR-CON) 20 mEq tablet TAKE 1 TABLET BY MOUTH DAILY Ferrous Gluconate 324 mg (36 mg iron) tab Take 1 tablet by mouth twice daily with meals. metFORMIN (GLUCOPHAGE) 500 mg tablet TAKE 2 TABLETS BY MOUTH TWICE DAILY WITH MEALS. . pravastatin (PRAVACHOL) 20 mg tablet TAKE 1 TABLET BY MOUTH ONCE DAILY. aspirin, enteric coated (ASPIRIN, ENTERIC COATED) 325 mg EC tablet Take 1 tablet by mouth once daily. Take with food. acetaminophen (TYLENOL EXTRA STRENGTH) 500 mg tablet Take 1 tablet by mouth daily at bedtime. furosemide (LASIX) 20 mg tablet Take 1 tablet by mouth once daily. wheat dextrin (BENEFIBER SUGAR FREE, DEXTRIN,) 3 gram/3.8 gram powd Stir 2 teaspoonfuls into 4-8 oz of beverage or soft food daily Cholecalciferol, Vitamin D3, 1,000 unit cap Take 1 capsule by mouth once daily. cloZAPine (CLOZARIL) 100 mg tablet take one tablet at noon, 2 tablets at 3 PM and 3 tablets at Bedtime glipiZIDE (GLUCOTROL) 5 mg tablet TAKE 1 TABLET TWICE A DAY albuterol HFA (VENTOLIN HFA) 90 mcg/actuation inhaler Inhale 2 Puffs as instructed every 4 hours as needed for Wheezing/Shortness of Breath. lactulose (CONSTULOSE) 10 gram/15 mL solution Take 30 mL by mouth twice daily. Prn constipation; hold for diarrhea Insulin Syringe-Needle U-100 (BD INSULIN SYRINGE) 1 mL 28 gauge x 1/2 syrg 10 Units once daily. FLOVENT DISKUS 250 mcg/actuation dsdv INHALE ONE PUFF BY MOUTH TWICE DAILY DIRECTED OMEGA-3 FATTY ACIDS (FISH OIL CONCENTRATE ORAL) Take by mouth once daily. desvenlafaxine ER (PRISTIQ) 50 mg 24 hr tablet Take 50 mg by mouth once daily. Lancets lancets test BS twice daily 2 days a week- dx 250.00 - non-insulin risperiDONE orally disintegrating (RISPERDAL M) 2 mg disintegrating tablet Take 2 mg by mouth once daily. blood sugar diagnostic (FREESTYLE LITE STRIPS) test strip test BS twice daily - dx - 250.00 -insulin Yes clonazePAM (KLONOPIN) 1 mg tablet Take 0.5 mg Bid, 1 mg po at HS insulin needles, DISPOSABLE, (PEN NEEDLE) 31 X 5/16 ndle Use one needle per dose. Once per day. Blood-Glucose Meter (FREESTYLE LITE METER) monitoring kit Used once daily to check blood sugar. 250.00 risperidone (RISPERDAL CONSTA) 50 mg/2 mL INTRAMUSC. injection Inject 2 mL intramuscularly every 2 weeks. COMPOUNDED PRESCRIPTION Please discontinue Tylenol ES 500 mg daily at bedtime (Patient not taking: Reported on 03/16/2018 ) STOOL SOFTENER 100 mg capsule TAKE 1 CAPSULE TWICE A DAY (Patient not taking: Reported on 03/16/2018) albuterol (PROVENTIL) 5 mg/mL nebu Inhale 0.5 mL as instructed one time only for 1 dose. 1 DOSE NOW - BACK OFFICE. PLACE 0.5 ML PER DROPPER AND 2.5 ML OF NORMAL SALINE INTO RESERVOIR. No current facility-administered medications for this visit. 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 [facility], pt was on metformin for a while but taken off - pt never told if she had DM or not - Major depressive disorder, recurrent episode, unspecified - Nonspecific elevation of levels of transaminase or lactic acid dehydrogenase (LDH) - LIDA (obstructive sleep apnea) - Pneumonia - Schizophreniform disorder, chronic condition (HCC) - Simple endometrial hyperplasia without atypia mirena IUD 01/2011 PAST SURGICAL HISTORY Procedure Laterality Date - COLONOSCOPY W/BX 12/19/2016 Normal colonoscopy-10 year follow-up - PAST SURGICAL HISTORY OF 1982 corrective jaw surgery - REMOVAL GALLBLADDER 1998 open FAMILY HISTORY Problem Relation Age of Onset - Psychiatry Mother depression - lung cancer [OTHER] Paternal Grandfather - Psychiatry Brother schizophrenia - Diabetes Brother - Hypertension Brother - Psychiatry Sister deperssion Social History Marital status: Single Spouse name: Years of education: 14 Number of children: 0 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 REVIEW OF SYSTEMS All other reviewed and negative other than HPI. VITALS: BP 130/68 Pulse 111 Temp 36.2 ?C (97.1 ?F) (Tympanic) Wt 88.5 kg (195 lb) LMP 09/12/2017 SpO2 93% BMI 36.84 kg/m? Last 4 Encounter Wt Readings: Date: Wt: 03/11/2018 88.5 kg (195 lb) 02/08/2018 87.1 kg (192 lb) 01/06/2018 88.9 kg (196 lb) 11/27/2017 86.5 kg (190 lb 11.2 oz) PHYSICAL EXAMINATION: General appearance: Well appearing, alert, in no acute distress, well-hydrated, well nourished. Skin: Skin color, texture, turgor normal, no suspicious rashes or lesions Head: Normocephalic, no masses, lesions, tenderness or abnormalities Eyes: Anicteric sclera. Pupils are equally round and reactive to light. Extraocular movements are intact. Ears: External ears normal, canals clear Nose/Sinuses: Nares normal, septum midline, mucosa normal, no drainage or sinus tenderness Oropharynx: Lips, mucosa, and tongue normal, teeth and gums normal, oropharynx normal Neck: Supple, no adenopathy Lungs: moving air well. Few scattered rhonchi in bases Heart: RRR without murmur, gallop, or rubs. No ectopy Abdomen: Normal abdominal exam, Abdomen soft, non-tender. Bowel sounds normal. No masses, organomegaly Extremities: No deformities, edema, skin discoloration, clubbing or cyanosis. Good capillary refill. Pulse ox 94 %, HR 110 after aerosol with good improvement. Heart rate is regular. ASSESSMENT/PLAN: 1. Wheezing - ICD9: 786.07, ICD10: R06.2 (primary diagnosis) - Fluids and rest. Red flags for re-assessment reviewed with patient in detail. - Discussed risks and benefits of new medication with the patient. Advised them to call if any side effects or questions. - Call if symptoms worsen at all or if not better in one to two weeks - ALBUTEROL SULFATE 1.25 MG/3 ML SOLUTION FOR NEBULIZATION - XR CHEST 2V FRONTAL/LAT - CBC + DIFF - BASIC METABOLIC PNL - PREDNISONE 20 MG TABLET - CEFUROXIME AXETIL 250 MG TABLET 2. Obesity, Class II, BMI 35-39.9 - ICD9: 278.00, ICD10: E66.9 3. Chronic obstructive pulmonary disease with acute exacerbation (HCC) - ICD9: 491.21, ICD10: J44.1 - as above. 4. Type 2 diabetes mellitus with diabetic nephropathy, with long-term current use of insulin (HCC) - ICD9: 250.40, 583.81, V58.67, ICD10: E11.21, Z79.4 - watch sugars while on steroids. Boris Jones MD CNOV Observed: 03/16/2018 Status: COMPLETED Source: [place] 9:20 AM [facility] REPOSITORY Office Visit (FAMPWS) BRITTNEE LE ([id number]) 1965 F Date Time Provider Department 03/16/18 9:20 [facility] During your visit today, we recorded the following information about you: Temperature Pulse Blood pressure Weight 97.1 degrees 115/minute 130/68 88.5 kg Nisha Angelo Ma 03/16/2018 9:58 AM Signed DURATION OF SYMPTOMS: Began 2 days ago ONSET OF SYMPTOMS: Sudden FEVER: No BODYACHES: Mild TIREDNESS: Mild HEADACHE: No EAR SYMPTOMS: Pain in right STUFFY NOSE: No POST NASAL DRIP: No SNEEZING: No SORE THROAT: Yes - mild COUGH: Yes, dry CHEST DISCOMFORT: No SHORTNESS OF BREATH: No WHEEZING: a little SPUTUM PRODUCTION: No OVER THE COUNTER MEDICATION PATIENT IS TAKING: No OTC use ALLERGIES VERIFIED WITH PATIENT: No DOCUMENTED ALLERGIES: Patient has no known allergies. STATUS: Patient states she is not Boris Jones MD 03/16/2018 10:31 AM Signed Patient presents with: Cough: x 2 days Fatigue: all over HPI: Patient presents today for office visit for an acute visit. Nursing Notes: Nisha Angelo Ma 03/16/2018 9:58 AM Signed DURATION OF SYMPTOMS: Began 2 days ago ONSET OF SYMPTOMS: Sudden FEVER: No BODYACHES: Mild TIREDNESS: Mild HEADACHE: No EAR SYMPTOMS: Pain in right STUFFY NOSE: No POST NASAL DRIP: No SNEEZING: No SORE THROAT: Yes - mild COUGH: Yes, dry CHEST DISCOMFORT: No SHORTNESS OF BREATH: No WHEEZING: a little SPUTUM PRODUCTION: No OVER THE COUNTER MEDICATION PATIENT IS TAKING: No OTC use ALLERGIES VERIFIED WITH PATIENT: No DOCUMENTED ALLERGIES: Patient has no known allergies. STATUS: Patient states she is not No nausea or vomiting or diarrhea. No abd pain. Sugars have been ok. MEDICATIONS: Current Outpatient Prescriptions: lubiprostone (AMITIZA) 24 mcg capsule Take 1 capsule by mouth twice daily with meals. MILK OF MAGNESIA 400 mg/5 mL suspension TAKE 15ML BY MOUTH DAILY NEEDED FOR CONSTIPATION (FOR NO BOWEL MOVEMENT AFTER 3 LANTUS U-100 INSULIN 100 unit/mL injection Give 24 units subq daily at 4 PM or as directed potassium chloride ER (K-DUR, KLOR-CON) 20 mEq tablet TAKE 1 TABLET BY MOUTH DAILY Ferrous Gluconate 324 mg (36 mg iron) tab Take 1 tablet by mouth twice daily with meals. metFORMIN (GLUCOPHAGE) 500 mg tablet TAKE 2 TABLETS BY MOUTH TWICE DAILY WITH MEALS. . pravastatin (PRAVACHOL) 20 mg tablet TAKE 1 TABLET BY MOUTH ONCE DAILY. aspirin, enteric coated (ASPIRIN, ENTERIC COATED) 325 mg EC tablet Take 1 tablet by mouth once daily. Take with food. acetaminophen (TYLENOL EXTRA STRENGTH) 500 mg tablet Take 1 tablet by mouth daily at bedtime. furosemide (LASIX) 20 mg tablet Take 1 tablet by mouth once daily. wheat dextrin (BENEFIBER SUGAR FREE, DEXTRIN,) 3 gram/3.8 gram powd Stir 2 teaspoonfuls into 4-8 oz of beverage or soft food daily Cholecalciferol, Vitamin D3, 1,000 unit cap Take 1 capsule by mouth once daily. cloZAPine (CLOZARIL) 100 mg tablet take one tablet at noon, 2 tablets at 3 PM and 3 tablets at Bedtime glipiZIDE (GLUCOTROL) 5 mg tablet TAKE 1 TABLET TWICE A DAY albuterol HFA (VENTOLIN HFA) 90 mcg/actuation inhaler Inhale 2 Puffs as instructed every 4 hours as needed for Wheezing/Shortness of Breath. lactulose (CONSTULOSE) 10 gram/15 mL solution Take 30 mL by mouth twice daily. Prn constipation; hold for diarrhea Insulin Syringe-Needle U-100 (BD INSULIN SYRINGE) 1 mL 28 gauge x 1/2 syrg 10 Units once daily. FLOVENT DISKUS 250 mcg/actuation dsdv INHALE ONE PUFF BY MOUTH TWICE DAILY DIRECTED OMEGA-3 FATTY ACIDS (FISH OIL CONCENTRATE ORAL) Take by mouth once daily. desvenlafaxine ER (PRISTIQ) 50 mg 24 hr tablet Take 50 mg by mouth once daily. Lancets lancets test BS twice daily 2 days a week- dx 250.00 - non-insulin risperiDONE orally disintegrating (RISPERDAL M) 2 mg disintegrating tablet Take 2 mg by mouth once daily. blood sugar diagnostic (FREESTYLE LITE STRIPS) test strip test BS twice daily - dx - 250.00 -insulin Yes clonazePAM (KLONOPIN) 1 mg tablet Take 0.5 mg Bid, 1 mg po at HS insulin needles, DISPOSABLE, (PEN NEEDLE) 31 X 5/16 ndle Use one needle per dose. Once per day. Blood-Glucose Meter (FREESTYLE LITE METER) monitoring kit Used once daily to check blood sugar. 250.00 risperidone (RISPERDAL CONSTA) 50 mg/2 mL INTRAMUSC. injection Inject 2 mL intramuscularly every 2 weeks. COMPOUNDED PRESCRIPTION Please discontinue Tylenol ES 500 mg daily at bedtime (Patient not taking: Reported on 03/16/2018 ) STOOL SOFTENER 100 mg capsule TAKE 1 CAPSULE TWICE A DAY (Patient not taking: Reported on 03/16/2018) albuterol (PROVENTIL) 5 mg/mL nebu Inhale 0.5 mL as instructed one time only for 1 dose. 1 DOSE NOW - BACK OFFICE. PLACE 0.5 ML PER DROPPER AND 2.5 ML OF NORMAL SALINE INTO RESERVOIR. No current facility-administered medications for this visit. ALLERGIES: ALLERGIES No Known Allergies PAST MEDICAL HISTORY Diagnosis Date - Constipation - COPD (chronic obstructive pulmonary disease) (HCC) - Diabetes 1.5, managed as type 2 ([facility]) found at counseling center, pt was on metformin for a while but taken off - pt never told if she had DM or not - Major depressive disorder, recurrent episode, unspecified - Nonspecific elevation of levels of transaminase or lactic acid dehydrogenase (LDH) - LIDA (obstructive sleep apnea) - Pneumonia - Schizophreniform disorder, chronic condition (HCC) - Simple endometrial hyperplasia without atypia mirena IUD 01/2011 PAST SURGICAL HISTORY Procedure Laterality Date - COLONOSCOPY W/BX 12/19/2016 Normal colonoscopy-10 year follow-up - PAST SURGICAL HISTORY OF 1982 corrective jaw surgery - REMOVAL GALLBLADDER 1998 open FAMILY HISTORY Problem Relation Age of Onset - Psychiatry Mother depression - lung cancer [OTHER] Paternal Grandfather - Psychiatry Brother schizophrenia - Diabetes Brother - Hypertension Brother - Psychiatry Sister deperssion Social History Marital status: Single Spouse name: Years of education: 14 Number of children: 0 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 REVIEW OF SYSTEMS All other reviewed and negative other than HPI. VITALS: BP 130/68 Pulse 111 Temp 36.2 ?C (97.1 ?F) (Tympanic) Wt 88.5 kg (195 lb) LMP 09/12/2017 SpO2 93% BMI 36.84 kg/m? Last 4 Encounter Wt Readings: Date: Wt: 03/11/2018 88.5 kg (195 lb) 02/08/2018 87.1 kg (192 lb) 01/06/2018 88.9 kg (196 lb) 11/27/2017 86.5 kg (190 lb 11.2 oz) PHYSICAL EXAMINATION: General appearance: Well appearing, alert, in no acute distress, well-hydrated, well nourished. Skin: Skin color, texture, turgor normal, no suspicious rashes or lesions Head: Normocephalic, no masses, lesions, tenderness or abnormalities Eyes: Anicteric sclera. Pupils are equally round and reactive to light. Extraocular movements are intact. Ears: External ears normal, canals clear Nose/Sinuses: Nares normal, septum midline, mucosa normal, no drainage or sinus tenderness Oropharynx: Lips, mucosa, and tongue normal, teeth and gums normal, oropharynx normal Neck: Supple, no adenopathy Lungs: moving air well. Few scattered rhonchi in bases Heart: RRR without murmur, gallop, or rubs. No ectopy Abdomen: Normal abdominal exam, Abdomen soft, non-tender. Bowel sounds normal. No masses, organomegaly Extremities: No deformities, edema, skin discoloration, clubbing or cyanosis. Good capillary refill. Pulse ox 94 %, HR 110 after aerosol with good improvement. Heart rate is regular. ASSESSMENT/PLAN: 1. Wheezing - ICD9: 786.07, ICD10: R06.2 (primary diagnosis) - Fluids and rest. Red flags for re-assessment reviewed with patient in detail. - Discussed risks and benefits of new medication with the patient. Advised them to call if any side effects or questions. - Call if symptoms worsen at all or if not better in one to two weeks - ALBUTEROL SULFATE 1.25 MG/3 ML SOLUTION FOR NEBULIZATION - XR CHEST 2V FRONTAL/LAT - CBC + DIFF - BASIC METABOLIC PNL - PREDNISONE 20 MG TABLET - CEFUROXIME AXETIL 250 MG TABLET 2. Obesity, Class II, BMI 35-39.9 - ICD9: 278.00, ICD10: E66.9 3. Chronic obstructive pulmonary disease with acute exacerbation (HCC) - ICD9: 491.21, ICD10: J44.1 - as above. 4. Type 2 diabetes mellitus with diabetic nephropathy, with long-term current use of insulin (HCC) - ICD9: 250.40, 583.81, V58.67, ICD10: E11.21, Z79.4 - watch sugars while on steroids. MD Boris Oviedo MD 03/16/2018 10:28 AM Signed Add ceftin twice a day and prednisone once a day Get labs and chest xray. Check sugars and call if go above 300 while on prednisone. Call if any worsening shortness of breath or cough. Call if not better in one week. Maria A Saldivar LPN 03/18/2018 1:58 PM Signed Addended by: MARIA A SALDIVAR LPN on: 03/18/2018 01:58 PM Modules accepted: Orders Boris Jones MD 03/18/2018 3:42 PM Signed Addended by: BORIS JONES MD on: 03/18/2018 03:42 PM Modules accepted: Orders Referring Provider: SELF [[id number]] Allergies As of Date: 03/16/2018 (No Known Allergies) Date Reviewed: 03/11/2018 Reviewed by: Vee Parish Ma - Fully Assessed Reason for Visit: Cough [28] Cmt: x 2 days Fatigue [46] Cmt: all over Primary Visit Diagnosis:Wheezing [R06.2] Other Visit Diagnoses:Obesity, Class II, BMI 35-39.9 [E66.9] Chronic obstructive pulmonary disease with acute exacerbation (HCC) [J44.1] Type 2 diabetes mellitus with diabetic nephropathy, with long-term current use of insulin (HCC) [E11.21, Z79.4] Order(s):[] Albuterol Sulfate nebu 2.5 mgDisp: Rfl: XR CHEST 2V FRONTAL/LAT [[id number]] Order #: [id number] FUTURE CBC + DIFF [SQCBCDIF] Order #: [id number] FUTURE BASIC METABOLIC PNL [SQBMP] Order #: [id number] FUTURE predniSONE (DELTASONE) 20 mg tabletTake 1 tablet by mouth once daily for 5 days. Take daily with food.Disp: 5 tabletRfl: 0 cefUROXime (CEFTIN) 250 mg tabletTake 1 tablet by mouth twice daily for 10 days.Disp: 20 tabletRfl: 0 [] albuterol 2.5 mg /3 mL (0.083 %) 2.5 mg (PROVENTIL)Disp: Rfl: Prescriptions as of 03/16/2018 Sig: LUBIPROSTONE 24 MCG CAPSULE Take 1 capsule by mouth twice* MILK OF MAGNESIA 400 MG/5 ML * TAKE 15ML BY MOUTH DAILY N* LANTUS U-100 INSULIN 100 UNIT* Give 24 units subq daily at 4* POTASSIUM CHLORIDE ER 20 MEQ * TAKE 1 TABLET BY MOUTH DAILY FERROUS GLUCONATE 324 MG (36 * Take 1 tablet by mouth twice * METFORMIN 500 MG TABLET TAKE 2 TABLETS BY MOUTH TWICE* PRAVASTATIN 20 MG TABLET TAKE 1 TABLET BY MOUTH ONCE D* ASPIRIN 325 MG TABLET,DELAYED* Take 1 tablet by mouth once d* ACETAMINOPHEN 500 MG TABLET Take 1 tablet by mouth daily * FUROSEMIDE 20 MG TABLET Take 1 tablet by mouth once d* WHEAT DEXTRIN 3 GRAM/3.8 GRAM* Stir 2 teaspoonfuls into 4-8 * CHOLECALCIFEROL (VITAMIN D3) * Take 1 capsule by mouth once * CLOZAPINE 100 MG TABLET take one tablet at noon, 2 ta* GLIPIZIDE 5 MG TABLET TAKE 1 TABLET TWICE A DAY ALBUTEROL SULFATE HFA 90 MCG/* Inhale 2 Puffs as instructed * LACTULOSE 10 GRAM/15 ML ORAL * Take 30 mL by mouth twice mainor* INSULIN SYRINGE-NEEDLE U-100 * 10 Units once daily. FLOVENT DISKUS 250 MCG/ACTUAT* INHALE ONE PUFF BY MOUTH TWIC* FISH OIL CONCENTRATE ORAL Take by mouth once daily. DESVENLAFAXINE SUCCINATE ER 5* Take 50 mg by mouth once ziggy* LANCETS test BS twice daily 2 days a * RISPERIDONE 2 MG DISINTEGRATI* Take 2 mg by mouth once daily. BLOOD SUGAR DIAGNOSTIC STRIPS test BS twice daily - dx - 25* CLONAZEPAM 1 MG TABLET Take 0.5 mg Bid, 1 mg po at HS PEN NEEDLE, DIABETIC 31 GAUGE* Use one needle per dose. Once* BLOOD-GLUCOSE METER KIT Used once daily to check bloo* * RISPERIDONE MICROSPHERES 50 M* Inject 2 mL intramuscularly e* PREDNISONE 20 MG TABLET Take 1 tablet by mouth once d* CEFUROXIME AXETIL 250 MG TABL* Take 1 tablet by mouth twice * COMPOUNDED PRESCRIPTION Please discontinue Tylenol ES* Patient not taking: Reported on 03/16/2018 STOOL SOFTENER 100 MG CAPSULE TAKE 1 CAPSULE TWICE A DAY Patient not taking: Reported on 03/16/2018 Problem List As Of Date 03/16/2018 Noted Resolved Schizophreniform disorder, chronic condition (H* Priority: Mild More... Other abnormal glucose [R73.09] Priority: A More... DM w/o Complication Type II [E11.9] INVALID FOR*02/22/2014 Priority: Moderate Gastritis [K29.70] INVALID FOR* Routine general medical examination at a health*INVALID FOR*11/26/2011 Class: Chronic More... Routine gynecological examination [Z01.419] INVALID FOR*11/26/2011 Class: Chronic More... Vitamin D deficiency [E55.9] INVALID FOR* Priority: A More... Liver Function Test Abnormality [R94.5] INVALID FOR* More... 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 Encounter for screening for malignant neoplasm *INVALID FOR* Postmenopausal bleeding [N95.0] INVALID FOR* More... Acute diastolic CHF (congestive heart failure) *INVALID FOR* More... Obesity, Class II, BMI 35-39.9 [E66.9] INVALID FOR* Other instructions from your clinician: Add ceftin twice a day and prednisone once a day Get labs and chest xray. Check sugars and call if go above 300 while on prednisone. Call if any worsening shortness of breath or cough. Call if not better in one week. Visit Notes: >> Nisha Angelo Ma FriMar 16, 2018 9:48 AM Status: Signed DURATION OF SYMPTOMS: Began 2 days ago ONSET OF SYMPTOMS: Sudden FEVER: No BODYACHES: Mild TIREDNESS: Mild HEADACHE: No EAR SYMPTOMS: Pain in right STUFFY NOSE: No POST NASAL DRIP: No SNEEZING: No SORE THROAT: Yes - mild COUGH: Yes, dry CHEST DISCOMFORT: No SHORTNESS OF BREATH: No WHEEZING: a little SPUTUM PRODUCTION: No OVER THE COUNTER MEDICATION PATIENT IS TAKING: No OTC use ALLERGIES VERIFIED WITH PATIENT: No DOCUMENTED ALLERGIES: Patient has no known allergies. STATUS: Patient states she is not Prescriptions ordered this encounter Disp Refills Start End ALBUTEROL SULFATE 1.25 MG/3 ML SOLUT* 03/16/2018 03/16/2018 Route: INHALATION PREDNISONE 20 MG TABLET 5 ta* 0 03/16/2018 03/21/2018 Route: ORAL Sig: Take 1 tablet by mouth once daily for 5 days. Take daily with food. CEFUROXIME AXETIL 250 MG TABLET 20 t* 0 03/16/2018 03/26/2018 Route: ORAL Sig: Take 1 tablet by mouth twice daily for 10 days. ALBUTEROL SULFATE 2.5 MG/3 ML (0.083* 03/18/2018 03/18/2018 Route: INHALATION Medications Discontinued During This Encounter albuterol (PROVENTIL) 5 mg/mL nebu 1 mL 0 10/10/2017 03/16/2018 Class: In Office Route: INHALATION Sig: Inhale 0.5 mL as instructed one time only for 1 dose. 1 DOSE NOW - BACK OFFICE. PLACE 0.5 ML PER DROPPER AND 2.5 ML OF NORMAL SALINE INTO RESERVOIR. Disc: Reason for discontinue is not on file. Disposition: Return if symptoms worsen or fail to improve. Follow-up and Disposition History Recorded Encounter Status:Closed by BORIS JONES MD on 03/16/18 JUAN JOSÉ Observed: 03/16/2018 Status: COMPLETED Source: [place] 12:00 AM [facility] BRITTNEE LE ([id number]) 1965 F Date Time Provider Department 03/16/18 [facility]ES [facility] During your visit today, we recorded the following information about you: Delfina Grant CANO 03/16/2018 2:52 PM Signed ----- Message from Boris Jones sent at 03/16/2018 2:20 PM EDT ----- Let her know her xray was ok. Delfina Grant CANO 03/16/2018 3:04 PM Signed Left a detailed message notifying [place] x-ray is ok. Allergies As of Date: 03/16/2018 (No Known Allergies) Date Reviewed: 03/11/2018 Reviewed by: Vee Parish Ma - Fully Assessed Reason for Visit: Results [95] Prescriptions as of 03/16/2018 Sig: PREDNISONE 20 MG TABLET Take 1 tablet by mouth once d* CEFUROXIME AXETIL 250 MG TABL* Take 1 tablet by mouth twice * LUBIPROSTONE 24 MCG CAPSULE Take 1 capsule by mouth twice* MILK OF MAGNESIA 400 MG/5 ML * TAKE 15ML BY MOUTH DAILY N* LANTUS U-100 INSULIN 100 UNIT* Give 24 units subq daily at 4* POTASSIUM CHLORIDE ER 20 MEQ * TAKE 1 TABLET BY MOUTH DAILY FERROUS GLUCONATE 324 MG (36 * Take 1 tablet by mouth twice * COMPOUNDED PRESCRIPTION Please discontinue Tylenol ES* Patient not taking: Reported on 03/16/2018 METFORMIN 500 MG TABLET TAKE 2 TABLETS BY MOUTH TWICE* STOOL SOFTENER 100 MG CAPSULE TAKE 1 CAPSULE TWICE A DAY Patient not taking: Reported on 03/16/2018 PRAVASTATIN 20 MG TABLET TAKE 1 TABLET BY MOUTH ONCE D* ASPIRIN 325 MG TABLET,DELAYED* Take 1 tablet by mouth once d* ACETAMINOPHEN 500 MG TABLET Take 1 tablet by mouth daily * FUROSEMIDE 20 MG TABLET Take 1 tablet by mouth once d* WHEAT DEXTRIN 3 GRAM/3.8 GRAM* Stir 2 teaspoonfuls into 4-8 * CHOLECALCIFEROL (VITAMIN D3) * Take 1 capsule by mouth once * CLOZAPINE 100 MG TABLET take one tablet at noon, 2 ta* GLIPIZIDE 5 MG TABLET TAKE 1 TABLET TWICE A DAY ALBUTEROL SULFATE HFA 90 MCG/* Inhale 2 Puffs as instructed * LACTULOSE 10 GRAM/15 ML ORAL * Take 30 mL by mouth twice mainor* INSULIN SYRINGE-NEEDLE U-100 * 10 Units once daily. FLOVENT DISKUS 250 MCG/ACTUAT* INHALE ONE PUFF BY MOUTH TWIC* FISH OIL CONCENTRATE ORAL Take by mouth once daily. DESVENLAFAXINE SUCCINATE ER 5* Take 50 mg by mouth once ziggy* LANCETS test BS twice daily 2 days a * RISPERIDONE 2 MG DISINTEGRATI* Take 2 mg by mouth once daily. BLOOD SUGAR DIAGNOSTIC STRIPS test BS twice daily - dx - 25* CLONAZEPAM 1 MG TABLET Take 0.5 mg Bid, 1 mg po at HS PEN NEEDLE, DIABETIC 31 GAUGE* Use one needle per dose. Once* BLOOD-GLUCOSE METER KIT Used once daily to check bloo* * RISPERIDONE MICROSPHERES 50 M* Inject 2 mL intramuscularly e* Problem List As Of Date 03/16/2018 Noted Resolved Schizophreniform disorder, chronic condition (H* Priority: Mild More... Other abnormal glucose [R73.09] Priority: A More... DM w/o Complication Type II [E11.9] INVALID FOR*02/22/2014 Priority: Moderate Gastritis [K29.70] INVALID FOR* Routine general medical examination at a health*INVALID FOR*11/26/2011 Class: Chronic More... Routine gynecological examination [Z01.419] INVALID FOR*11/26/2011 Class: Chronic More... Vitamin D deficiency [E55.9] INVALID FOR* Priority: A More... Liver Function Test Abnormality [R94.5] INVALID FOR* More... 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 Encounter for screening for malignant neoplasm *INVALID FOR* Postmenopausal bleeding [N95.0] INVALID FOR* More... Acute diastolic CHF (congestive heart failure) *INVALID FOR* More... Obesity, Class II, BMI 35-39.9 [E66.9] INVALID FOR* Encounter Status:Closed by DELFINA CAMACHO LPN on 03/16/18 HISTORY PHYSICAL Observed: 03/11/2018 Status: COMPLETED Source: [place] 10:02 AM [facility] REPOSITORY [facility] ID: [id number] Author: Ahser Muñoz Service: (none) Author Type: Nurse Practitioner Type: HANDP Filed: 03/11/2018 3:15 PM Note Text: Brittnee Mayberry Le a 52 year old female who is a consultation requested by Dr. Jones for an opinion regarding constipation. My final recommendations will be communicated back to the requesting physician by way of shared Medical record. The patient has not been seen previously. The patient denies a family history of colon cancer. The patient's employment case manager is present for this appointment. The patient was seen by Dr. Jones on 01/06/18, leading to this consultation. That note has been reviewed and part as follows: GASTROENTEROLOGY: has chronic constipation. Takes multiple meds. Has nothing to use prn. No abd pain No blood in stools No nausea or vomiting. This is not a change in her patterns. Chart review: Has lactulose to use PRN. Component Latest Ref Rng AND Units 01/13/2018 Occult Blood, Stool Negative Negative Component Latest Ref Rng AND Units 02/17/2018 Iron 41 - 186 ug/dL 49 TIBC 232 - 386 ug/dL 358 Transferrin Saturation 15 - 57 % 14 (L) [facility] through [facility]: 02/19/18: 13.0/39.7 The patient was seen by Dr. Burns for colonoscopy 12/19/16 for reported constipation. The procedure report has been reviewed and findings as follows: Presenting complaint: The patient presents today reporting that she is taking lactulose twice a day, without seeing any results. She notes also using stool softener and prune juice. Currently adding MOM every three to four days, taking 30cc. She tells me that it's 8 days between bowel movements. She describes the stools as hard small balls. She has tenesmus. The patient denies blood or black stools. Her employment case manager reports that the patient tends to go in cycles. The patient is on fluid restriction due to water intoxication. She tells me that she is permitted to drink 3-16oz glasses - (one with each meal) and unlimited ice. The volume is adjusted due to wather. REVIEW OF SYSTEMS: GENERAL: No unplanned weight loss. GI: The patient states that her appetite has been good. She does get hungry. There has been no nausea, no vomiting. She denies dysphagia and denies odynophagia. There has not been indigestion or heartburn. There has not been regurgitation. Bowel habits have been regular. There has not been diarrhea. There has been constipation. The patient denies rectal bleeding. There has not been melena. No abdominal pain. All other reviewed and negative other than HPI. 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 [facility], pt was on metformin for a while but taken off - pt never told if she had DM or not - Major depressive disorder, recurrent episode, unspecified - Nonspecific elevation of levels of transaminase or lactic acid dehydrogenase (LDH) - LIDA (obstructive sleep apnea) - Pneumonia - Schizophreniform disorder, chronic condition (HCC) - Simple endometrial hyperplasia without atypia mirena IUD 01/2011 PAST SURGICAL HISTORY Procedure Laterality Date - COLONOSCOPY W/BX 12/19/2016 Normal colonoscopy-10 year follow-up - PAST SURGICAL HISTORY OF 1982 corrective jaw surgery - REMOVAL GALLBLADDER 1998 open FAMILY HISTORY Problem Relation Age of Onset - Psychiatry Mother depression - lung cancer [OTHER] Paternal Grandfather - Psychiatry Brother schizophrenia - Diabetes Brother - Hypertension Brother - Psychiatry Sister deperssion Current Outpatient Prescriptions: MILK OF MAGNESIA 400 mg/5 mL suspension TAKE 15ML BY MOUTH DAILY NEEDED FOR CONSTIPATION (FOR NO BOWEL MOVEMENT AFTER 3 Disp: 360 mL Rfl: 5 LANTUS U-100 INSULIN 100 unit/mL injection Give 24 units subq daily at 4 PM or as directed Disp: 10 mL Rfl: 11 potassium chloride ER (K-DUR, KLOR-CON) 20 mEq tablet TAKE 1 TABLET BY MOUTH DAILY Disp: 30 tablet Rfl: 5 Ferrous Gluconate 324 mg (36 mg iron) tab Take 1 tablet by mouth twice daily with meals. Disp: 60 tablet Rfl: 5 COMPOUNDED PRESCRIPTION Please discontinue Tylenol ES 500 mg daily at bedtime Disp: Rfl: metFORMIN (GLUCOPHAGE) 500 mg tablet TAKE 2 TABLETS BY MOUTH TWICE DAILY WITH MEALS. . Disp: 112 tablet Rfl: 3 STOOL SOFTENER 100 mg capsule TAKE 1 CAPSULE TWICE A DAY Disp: 56 capsule Rfl: 3 pravastatin (PRAVACHOL) 20 mg tablet TAKE 1 TABLET BY MOUTH ONCE DAILY. Disp: 28 tablet Rfl: 3 aspirin, enteric coated (ASPIRIN, ENTERIC COATED) 325 mg EC tablet Take 1 tablet by mouth once daily. Take with food. Disp: 30 tablet Rfl: 11 acetaminophen (TYLENOL EXTRA STRENGTH) 500 mg tablet Take 1 tablet by mouth daily at bedtime. Disp: 30 tablet Rfl: 11 furosemide (LASIX) 20 mg tablet Take 1 tablet by mouth once daily. Disp: 90 tablet Rfl: 3 wheat dextrin (BENEFIBER SUGAR FREE, DEXTRIN,) 3 gram/3.8 gram powd Stir 2 teaspoonfuls into 4-8 oz of beverage or soft food daily Disp: Rfl: Cholecalciferol, Vitamin D3, 1,000 unit cap Take 1 capsule by mouth once daily. Disp: Rfl: cloZAPine (CLOZARIL) 100 mg tablet take one tablet at noon, 2 tablets at 3 PM and 3 tablets at Bedtime Disp: Rfl: 0 glipiZIDE (GLUCOTROL) 5 mg tablet TAKE 1 TABLET TWICE A DAY Disp: 60 tablet Rfl: 5 albuterol (PROVENTIL) 5 mg/mL nebu Inhale 0.5 mL as instructed one time only for 1 dose. 1 DOSE NOW - BACK OFFICE. PLACE 0.5 ML PER DROPPER AND 2.5 ML OF NORMAL SALINE INTO RESERVOIR. Disp: 1 mL Rfl: 0 albuterol HFA (VENTOLIN HFA) 90 mcg/actuation inhaler Inhale 2 Puffs as instructed every 4 hours as needed for Wheezing/Shortness of Breath. Disp: 1 Inhaler Rfl: 0 lactulose (CONSTULOSE) 10 gram/15 mL solution Take 30 mL by mouth twice daily. Prn constipation; hold for diarrhea Disp: 3 Bottle Rfl: 11 Insulin Syringe-Needle U-100 (BD INSULIN SYRINGE) 1 mL 28 gauge x 1/2 syrg 10 Units once daily. Disp: 100 Syringe Rfl: 10 FLOVENT DISKUS 250 mcg/actuation dsdv INHALE ONE PUFF BY MOUTH TWICE DAILY DIRECTED Disp: 1 Inhaler Rfl: 12 OMEGA-3 FATTY ACIDS (FISH OIL CONCENTRATE ORAL) Take by mouth once daily. Disp: Rfl: desvenlafaxine ER (PRISTIQ) 50 mg 24 hr tablet Take 50 mg by mouth once daily. Disp: Rfl: Lancets lancets test BS twice daily 2 days a week- dx 250.00 - non-insulin Disp: 100 Each Rfl: 6 risperiDONE orally disintegrating (RISPERDAL M) 2 mg disintegrating tablet Take 2 mg by mouth once daily. Disp: Rfl: blood sugar diagnostic (FREESTYLE LITE STRIPS) test strip test BS twice daily - dx - 250.00 -insulin Yes Disp: 100 Strip Rfl: 6 clonazePAM (KLONOPIN) 1 mg tablet Take 0.5 mg Bid, 1 mg po at HS Disp: Rfl: insulin needles, DISPOSABLE, (PEN NEEDLE) 31 X 5/16 ndle Use one needle per dose. Once per day. Disp: 100 Each Rfl: 11 Blood-Glucose Meter (FREESTYLE LITE METER) monitoring kit Used once daily to check blood sugar. 250.00 Disp: 1 Each Rfl: 0 risperidone (RISPERDAL CONSTA) 50 mg/2 mL INTRAMUSC. injection Inject 2 mL intramuscularly every 2 weeks. Disp: Rfl: 0 No current facility-administered medications for this visit. SOCIAL HISTORY: Patient lives in a intermediate. She quit smoking in 2013 and reports her alcohol use as never. PHYSICAL EXAMINATION: Blood pressure 118/75, pulse (!) 121, height 154.9 cm (5' 1), weight 88.5 kg (195 lb), last menstrual period 09/12/2017. General Appearance: Well appearing, alert, in no acute distress, well-hydrated, well nourished. Skin: Skin color, texture, turgor normal, no suspicious rashes or lesions. Eyes: Anicteric sclera. Neck: Supple, no adenopathy; thyroid symmetric, normal size. Lungs: Lungs clear to auscultation. No wheezing, rhonchi, rales. Heart: RRR without murmur, gallop, or rubs. No ectopy. Abdomen: Abdomen soft, non-tender. Bowel sounds normal. No masses, organomegaly. Extremities: No deformities, edema, skin discoloration, clubbing or cyanosis. Impression: constipation Plan: Start Amitiza Asher Muñoz RN APRN.PAVITHRA DIXONOV Observed: 03/11/2018 Status: COMPLETED Source: [place] 9:40 AM [facility] REPOSITORY [facility] REYBRITTNEE Shawanda ([id number]) 1965 F Date Time Provider Department 03/11/18 9:40 AM ASHER MUÑOZ (HAND COKE DRAWER) [facility] During your visit today, we recorded the following information about you: Pulse Blood pressure Weight Height 121/minute 118/75 88.5 kg 1.549 m Asher Muñoz RN APRN.RODEO RIDER 03/11/2018 3:15 PM Signed Brittnee Le a 52 year old female who is a consultation requested by Dr. Jones for an opinion regarding constipation. My final recommendations will be communicated back to the requesting physician by way of shared Medical record. The patient has not been seen previously. The patient denies a family history of colon cancer. The patient's employment case manager is present for this appointment. The patient was seen by Dr. Jones on 01/06/18, leading to this consultation. That note has been reviewed and part as follows: GASTROENTEROLOGY: has chronic constipation. Takes multiple meds. Has nothing to use prn. No abd pain No blood in stools No nausea or vomiting. This is not a change in her patterns. Chart review: Has lactulose to use PRN. Component Latest Ref Rng AND Units 01/13/2018 Occult Blood, Stool Negative Negative Component Latest Ref Rng AND Units 02/17/2018 Iron 41 - 186 ug/dL 49 TIBC 232 - 386 ug/dL 358 Transferrin Saturation 15 - 57 % 14 (L) [facility] through [facility]: 02/19/18: 13.0/39.7 The patient was seen by Dr. Burns for colonoscopy 12/19/16 for reported constipation. The procedure report has been reviewed and findings as follows: Presenting complaint: The patient presents today reporting that she is taking lactulose twice a day, without seeing any results. She notes also using stool softener and prune juice. Currently adding MOM every three to four days, taking 30cc. She tells me that it's 8 days between bowel movements. She describes the stools as hard small balls. She has tenesmus. The patient denies blood or black stools. Her employment case manager reports that the patient tends to go in cycles. The patient is on fluid restriction due to water intoxication. She tells me that she is permitted to drink 3-16oz glasses - (one with each meal) and unlimited ice. The volume is adjusted due to wather. REVIEW OF SYSTEMS: GENERAL: No unplanned weight loss. GI: The patient states that her appetite has been good. She does get hungry. There has been no nausea, no vomiting. She denies dysphagia and denies odynophagia. There has not been indigestion or heartburn. There has not been regurgitation. Bowel habits have been regular. There has not been diarrhea. There has been constipation. The patient denies rectal bleeding. There has not been melena. No abdominal pain. All other reviewed and negative other than HPI. 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 [facility], pt was on metformin for a while but taken off - pt never told if she had DM or not - Major depressive disorder, recurrent episode, unspecified - Nonspecific elevation of levels of transaminase or lactic acid dehydrogenase (LDH) - LIDA (obstructive sleep apnea) - Pneumonia - Schizophreniform disorder, chronic condition (HCC) - Simple endometrial hyperplasia without atypia mirena IUD 01/2011 PAST SURGICAL HISTORY Procedure Laterality Date - COLONOSCOPY W/BX 12/19/2016 Normal colonoscopy-10 year follow-up - PAST SURGICAL HISTORY OF 1982 corrective jaw surgery - REMOVAL GALLBLADDER 1998 open FAMILY HISTORY Problem Relation Age of Onset - Psychiatry Mother depression - lung cancer [OTHER] Paternal Grandfather - Psychiatry Brother schizophrenia - Diabetes Brother - Hypertension Brother - Psychiatry Sister deperssion Current Outpatient Prescriptions: MILK OF MAGNESIA 400 mg/5 mL suspension TAKE 15ML BY MOUTH DAILY NEEDED FOR CONSTIPATION (FOR NO BOWEL MOVEMENT AFTER 3 Disp: 360 mL Rfl: 5 LANTUS U-100 INSULIN 100 unit/mL injection Give 24 units subq daily at 4 PM or as directed Disp: 10 mL Rfl: 11 potassium chloride ER (K-DUR, KLOR-CON) 20 mEq tablet TAKE 1 TABLET BY MOUTH DAILY Disp: 30 tablet Rfl: 5 Ferrous Gluconate 324 mg (36 mg iron) tab Take 1 tablet by mouth twice daily with meals. Disp: 60 tablet Rfl: 5 COMPOUNDED PRESCRIPTION Please discontinue Tylenol ES 500 mg daily at bedtime Disp: Rfl: metFORMIN (GLUCOPHAGE) 500 mg tablet TAKE 2 TABLETS BY MOUTH TWICE DAILY WITH MEALS. . Disp: 112 tablet Rfl: 3 STOOL SOFTENER 100 mg capsule TAKE 1 CAPSULE TWICE A DAY Disp: 56 capsule Rfl: 3 pravastatin (PRAVACHOL) 20 mg tablet TAKE 1 TABLET BY MOUTH ONCE DAILY. Disp: 28 tablet Rfl: 3 aspirin, enteric coated (ASPIRIN, ENTERIC COATED) 325 mg EC tablet Take 1 tablet by mouth once daily. Take with food. Disp: 30 tablet Rfl: 11 acetaminophen (TYLENOL EXTRA STRENGTH) 500 mg tablet Take 1 tablet by mouth daily at bedtime. Disp: 30 tablet Rfl: 11 furosemide (LASIX) 20 mg tablet Take 1 tablet by mouth once daily. Disp: 90 tablet Rfl: 3 wheat dextrin (BENEFIBER SUGAR FREE, DEXTRIN,) 3 gram/3.8 gram powd Stir 2 teaspoonfuls into 4-8 oz of beverage or soft food daily Disp: Rfl: Cholecalciferol, Vitamin D3, 1,000 unit cap Take 1 capsule by mouth once daily. Disp: Rfl: cloZAPine (CLOZARIL) 100 mg tablet take one tablet at noon, 2 tablets at 3 PM and 3 tablets at Bedtime Disp: Rfl: 0 glipiZIDE (GLUCOTROL) 5 mg tablet TAKE 1 TABLET TWICE A DAY Disp: 60 tablet Rfl: 5 albuterol (PROVENTIL) 5 mg/mL nebu Inhale 0.5 mL as instructed one time only for 1 dose. 1 DOSE NOW - BACK OFFICE. PLACE 0.5 ML PER DROPPER AND 2.5 ML OF NORMAL SALINE INTO RESERVOIR. Disp: 1 mL Rfl: 0 albuterol HFA (VENTOLIN HFA) 90 mcg/actuation inhaler Inhale 2 Puffs as instructed every 4 hours as needed for Wheezing/Shortness of Breath. Disp: 1 Inhaler Rfl: 0 lactulose (CONSTULOSE) 10 gram/15 mL solution Take 30 mL by mouth twice daily. Prn constipation; hold for diarrhea Disp: 3 Bottle Rfl: 11 Insulin Syringe-Needle U-100 (BD INSULIN SYRINGE) 1 mL 28 gauge x 1/2 syrg 10 Units once daily. Disp: 100 Syringe Rfl: 10 FLOVENT DISKUS 250 mcg/actuation dsdv INHALE ONE PUFF BY MOUTH TWICE DAILY DIRECTED Disp: 1 Inhaler Rfl: 12 OMEGA-3 FATTY ACIDS (FISH OIL CONCENTRATE ORAL) Take by mouth once daily. Disp: Rfl: desvenlafaxine ER (PRISTIQ) 50 mg 24 hr tablet Take 50 mg by mouth once daily. Disp: Rfl: Lancets lancets test BS twice daily 2 days a week- dx 250.00 - non-insulin Disp: 100 Each Rfl: 6 risperiDONE orally disintegrating (RISPERDAL M) 2 mg disintegrating tablet Take 2 mg by mouth once daily. Disp: Rfl: blood sugar diagnostic (FREESTYLE LITE STRIPS) test strip test BS twice daily - dx - 250.00 -insulin Yes Disp: 100 Strip Rfl: 6 clonazePAM (KLONOPIN) 1 mg tablet Take 0.5 mg Bid, 1 mg po at HS Disp: Rfl: insulin needles, DISPOSABLE, (PEN NEEDLE) 31 X 5/16 ndle Use one needle per dose. Once per day. Disp: 100 Each Rfl: 11 Blood-Glucose Meter (FREESTYLE LITE METER) monitoring kit Used once daily to check blood sugar. 250.00 Disp: 1 Each Rfl: 0 risperidone (RISPERDAL CONSTA) 50 mg/2 mL INTRAMUSC. injection Inject 2 mL intramuscularly every 2 weeks. Disp: Rfl: 0 No current facility-administered medications for this visit. SOCIAL HISTORY: Patient lives in a intermediate. She quit smoking in 2013 and reports her alcohol use as never. PHYSICAL EXAMINATION: Blood pressure 118/75, pulse (!) 121, height 154.9 cm (5' 1), weight 88.5 kg (195 lb), last menstrual period 09/12/2017. General Appearance: Well appearing, alert, in no acute distress, well-hydrated, well nourished. Skin: Skin color, texture, turgor normal, no suspicious rashes or lesions. Eyes: Anicteric sclera. Neck: Supple, no adenopathy; thyroid symmetric, normal size. Lungs: Lungs clear to auscultation. No wheezing, rhonchi, rales. Heart: RRR without murmur, gallop, or rubs. No ectopy. Abdomen: Abdomen soft, non-tender. Bowel sounds normal. No masses, organomegaly. Extremities: No deformities, edema, skin discoloration, clubbing or cyanosis. Impression: constipation Plan: Start Amitiza Asher Muñoz RN [employer] WORK[employer].RODEO RIDER Asher Muñoz RN [employer] WORKER.RODEO RIDER 03/11/2018 10:40 AM Signed Hold lactulose. Hold MOM. Hold stool softener. Start Amitiza, taking it with breakfast and evening meal. May continue Benefiber. Call if having diarrhea, so that the dose can be adjusted. [phone] and ask for the GI nurse. (Brandy or Vee) Call within one week, if no results. Call with an update in 2 weeks, if no problems or questions. Referring Provider: BORIS JONES [[id number]] Allergies As of Date: 03/11/2018 (No Known Allergies) Date Reviewed: 03/11/2018 Reviewed by: Vee Parish Ma - Fully Assessed Reason for Visit: Constipation [25] Primary Visit Diagnosis:Chronic idiopathic constipation [K59.04] Order(s):lubiprostone (AMITIZA) 24 mcg capsuleTake 1 capsule by mouth twice daily with meals.Disp: 60 capsuleRfl: 11 Prescriptions as of 03/11/2018 Sig: LUBIPROSTONE 24 MCG CAPSULE Take 1 capsule by mouth twice* MILK OF MAGNESIA 400 MG/5 ML * TAKE 15ML BY MOUTH DAILY N* LANTUS U-100 INSULIN 100 UNIT* Give 24 units subq daily at 4* POTASSIUM CHLORIDE ER 20 MEQ * TAKE 1 TABLET BY MOUTH DAILY FERROUS GLUCONATE 324 MG (36 * Take 1 tablet by mouth twice * COMPOUNDED PRESCRIPTION Please discontinue Tylenol ES* METFORMIN 500 MG TABLET TAKE 2 TABLETS BY MOUTH TWICE* STOOL SOFTENER 100 MG CAPSULE TAKE 1 CAPSULE TWICE A DAY PRAVASTATIN 20 MG TABLET TAKE 1 TABLET BY MOUTH ONCE D* ASPIRIN 325 MG TABLET,DELAYED* Take 1 tablet by mouth once d* ACETAMINOPHEN 500 MG TABLET Take 1 tablet by mouth daily * FUROSEMIDE 20 MG TABLET Take 1 tablet by mouth once d* WHEAT DEXTRIN 3 GRAM/3.8 GRAM* Stir 2 teaspoonfuls into 4-8 * CHOLECALCIFEROL (VITAMIN D3) * Take 1 capsule by mouth once * CLOZAPINE 100 MG TABLET take one tablet at noon, 2 ta* GLIPIZIDE 5 MG TABLET TAKE 1 TABLET TWICE A DAY ALBUTEROL SULFATE CONCENTRATE* Inhale 0.5 mL as instructed o* ALBUTEROL SULFATE HFA 90 MCG/* Inhale 2 Puffs as instructed * LACTULOSE 10 GRAM/15 ML ORAL * Take 30 mL by mouth twice mainor* INSULIN SYRINGE-NEEDLE U-100 * 10 Units once daily. FLOVENT DISKUS 250 MCG/ACTUAT* INHALE ONE PUFF BY MOUTH TWIC* FISH OIL CONCENTRATE ORAL Take by mouth once daily. DESVENLAFAXINE SUCCINATE ER 5* Take 50 mg by mouth once ziggy* LANCETS test BS twice daily 2 days a * RISPERIDONE 2 MG DISINTEGRATI* Take 2 mg by mouth once daily. BLOOD SUGAR DIAGNOSTIC STRIPS test BS twice daily - dx - 25* CLONAZEPAM 1 MG TABLET Take 0.5 mg Bid, 1 mg po at HS PEN NEEDLE, DIABETIC 31 GAUGE* Use one needle per dose. Once* BLOOD-GLUCOSE METER KIT Used once daily to check bloo* * RISPERIDONE MICROSPHERES 50 M* Inject 2 mL intramuscularly e* Medication notes this encounter STOOL SOFTENER 100 MG CAPSULE >> Asher Muñoz RN [employer] WORKER.RODEO RIDER 03/11/2018 3:12 PM >> ASHER MUÑOZ CNP FriMarch 11, 2018 3:12 PM hold starting 03/11- while on Amitiza Problem List As Of Date 03/11/2018 Noted Resolved Schizophreniform disorder, chronic condition (H* Priority: Mild More... Other abnormal glucose [R73.09] Priority: A More... DM w/o Complication Type II [E11.9] INVALID FOR*02/22/2014 Priority: Moderate Gastritis [K29.70] INVALID FOR* Routine general medical examination at a health*INVALID FOR*11/26/2011 Class: Chronic More... Routine gynecological examination [Z01.419] INVALID FOR*11/26/2011 Class: Chronic More... Vitamin D deficiency [E55.9] INVALID FOR* Priority: A More... Liver Function Test Abnormality [R94.5] INVALID FOR* More... 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 Encounter for screening for malignant neoplasm *INVALID FOR* Postmenopausal bleeding [N95.0] INVALID FOR* More... Acute diastolic CHF (congestive heart failure) *INVALID FOR* More... Other instructions from your clinician: Hold lactulose. Hold MOM. Hold stool softener. Start Amitiza, taking it with breakfast and evening meal. May continue Benefiber. Call if having diarrhea, so that the dose can be adjusted. [phone] and ask for the GI nurse. (Brandy or Vee) Call within one week, if no results. Call with an update in 2 weeks, if no problems or questions. Prescriptions ordered this encounter Disp Refills Start End LUBIPROSTONE 24 MCG CAPSULE 60 c* 11 03/11/2018 Cmt: patient has a card from Amitiza to assist with copay Route: ORAL Sig: Take 1 capsule by mouth twice daily with meals. Follow-up and Disposition History Recorded Encounter Status:Closed by ASHER MUÑOZ CNP on 03/11/18 PROGRESS Observed: 03/10/2018 Status: COMPLETED Source: [place] 3:23 PM [facility] REPOSITORY O ID: [id number] Author: Asia (Ramón) Indra Service: (none) Author Type: Registered Nurse Type: Progress Notes Filed: 03/10/2018 3:30 PM Note Text: PRIMARY CARE COORDINATION FOLLOW-UP NOTE Provider Action/FYI CG concerned about pt's fluid restrictions on hot days. Instructed to offer smaller bottles of water to pt on field trips and watch pt's daily wts. Patient identified by name and date of . YES Spoke to MICHELE Holguin at [facility] Concerns: CG states she isn't sure how they are going to keep patient from drinking water when she goes into the bathroom especially on these hot days. Discussed fluid restriction and agree CG can't stop pt from drinking water in the bathroom. However when they go on field trips possibly bring smaller bottles of water for patient, verbalized agreement They still need to try to restrict fluids and have pt cool down with a damp cool rag for her face. Watch daily weights and call PCP if wt increases 3 lbs overnight or 5 lbs in a week, verbalized agreement. Savings Teller plan for next outreach: Will follow up 2 weeks Signature Asia Burrell RN March 10, 2018 WILDER Observed: 03/10/2018 Status: COMPLETED Source: [place] 12:00 AM [facility] REPOSITORY Patient Outreach ([facility]) BRITTNEE LE ([id number]) 1965 F Date Time Provider Department 03/10/18 ASIA BURRELL (RN) [facility] During your visit today, we recorded the following information about you: Asia Burrell RN 03/10/2018 3:30 PM Signed PRIMARY CARE COORDINATION FOLLOW-UP NOTE Provider Action/FYI CG concerned about pt's fluid restrictions on hot days. Instructed to offer smaller bottles of water to pt on field trips and watch pt's daily wts. Patient identified by name and date of . YES Spoke to MICHELE Holguin at [facility] Concerns: CG states she isn't sure how they are going to keep patient from drinking water when she goes into the bathroom especially on these hot days. Discussed fluid restriction and agree CG can't stop pt from drinking water in the bathroom. However when they go on field trips possibly bring smaller bottles of water for patient, verbalized agreement They still need to try to restrict fluids and have pt cool down with a damp cool rag for her face. Watch daily weights and call PCP if wt increases 3 lbs overnight or 5 lbs in a week, verbalized agreement. 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 Chronic Care [[id number]] Prescriptions as of 03/10/2018 Sig: MILK OF MAGNESIA 400 MG/5 ML * TAKE 15ML BY MOUTH DAILY N* LANTUS U-100 INSULIN 100 UNIT* Give 24 units subq daily at 4* POTASSIUM CHLORIDE ER 20 MEQ * TAKE 1 TABLET BY MOUTH DAILY FERROUS GLUCONATE 324 MG (36 * Take 1 tablet by mouth twice * COMPOUNDED PRESCRIPTION Please discontinue Tylenol ES* METFORMIN 500 MG TABLET TAKE 2 TABLETS BY MOUTH TWICE* STOOL SOFTENER 100 MG CAPSULE TAKE 1 CAPSULE TWICE A DAY PRAVASTATIN 20 MG TABLET TAKE 1 TABLET BY MOUTH ONCE D* ASPIRIN 325 MG TABLET,DELAYED* Take 1 tablet by mouth once d* ACETAMINOPHEN 500 MG TABLET Take 1 tablet by mouth daily * FUROSEMIDE 20 MG TABLET Take 1 tablet by mouth once d* WHEAT DEXTRIN 3 GRAM/3.8 GRAM* Stir 2 teaspoonfuls into 4-8 * CHOLECALCIFEROL (VITAMIN D3) * Take 1 capsule by mouth once * CLOZAPINE 100 MG TABLET take one tablet at noon, 2 ta* GLIPIZIDE 5 MG TABLET TAKE 1 TABLET TWICE A DAY ALBUTEROL SULFATE CONCENTRATE* Inhale 0.5 mL as instructed o* ALBUTEROL SULFATE HFA 90 MCG/* Inhale 2 Puffs as instructed * LACTULOSE 10 GRAM/15 ML ORAL * Take 30 mL by mouth twice mainor* INSULIN SYRINGE-NEEDLE U-100 * 10 Units once daily. FLOVENT DISKUS 250 MCG/ACTUAT* INHALE ONE PUFF BY MOUTH TWIC* FISH OIL CONCENTRATE ORAL Take by mouth once daily. DESVENLAFAXINE SUCCINATE ER 5* Take 50 mg by mouth once ziggy* LANCETS test BS twice daily 2 days a * RISPERIDONE 2 MG DISINTEGRATI* Take 2 mg by mouth once daily. BLOOD SUGAR DIAGNOSTIC STRIPS test BS twice daily - dx - 25* CLONAZEPAM 1 MG TABLET Take 0.5 mg Bid, 1 mg po at HS PEN NEEDLE, DIABETIC 31 GAUGE* Use one needle per dose. Once* BLOOD-GLUCOSE METER KIT Used once daily to check bloo* * RISPERIDONE MICROSPHERES 50 M* Inject 2 mL intramuscularly e* Problem List As Of Date 03/10/2018 Noted Resolved Schizophreniform disorder, chronic condition (H* Priority: Mild More... Other abnormal glucose [R73.09] Priority: A More... DM w/o Complication Type II [E11.9] INVALID FOR*02/22/2014 Priority: Moderate Gastritis [K29.70] INVALID FOR* Routine general medical examination at a [facility]*INVALID FOR*11/26/2011 Class: Chronic More... Routine gynecological examination [Z01.419] INVALID FOR*11/26/2011 Class: Chronic More... Vitamin D deficiency [E55.9] INVALID FOR* Priority: A More... Liver Function Test Abnormality [R94.5] INVALID FOR* More... 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 Encounter for screening for malignant neoplasm *INVALID FOR* Postmenopausal bleeding [N95.0] INVALID FOR* More... Acute diastolic CHF (congestive heart failure) *INVALID FOR* More... Encounter Status:Closed by ASIA BURRELL on 03/10/18 PROGRESS Observed: 03/06/2018 Status: COMPLETED Source: [place] 10:06 AM [facility] REPOSITORY HNO ID: [id number] Author: Asia (Ramón) Indra Service: (none) Author Type: Registered Nurse Type: Progress Notes Filed: 03/06/2018 10:07 AM Note Text: TC from Shereen at [facility], states she made an error, it wasn't Brittnee that had all of her teeth pulled, it was a different client. Asia Burrell RN March 06, 2018 10:07 AM PROGRESS Observed: 03/06/2018 Status: COMPLETED Source: [place] 10:04 AM [facility] REPOSITORY HNO ID: [id number] Author: Asia Crews) Indra Service: (none) Author Type: Registered Nurse Type: Progress Notes Filed: 03/06/2018 10:05 AM Note Text: Noted Asia Burrell RN March 06, 2018 10:05 AM PROGRESS Observed: 03/06/2018 Status: COMPLETED Source: [place] 9:46 AM [facility] REPOSITORY HNO ID: [id number] Author: Boris Jones Service: (none) Author Type: Physician Type: Progress Notes Filed: 03/06/2018 10:05 AM Note Text: Same dose. Call list in two weeks. PROGRESS Observed: 03/06/2018 Status: COMPLETED Source: [place] 9:08 AM [facility] REPOSITORY HNO ID: [id number] Author: Asia Crews) Indra Service: (none) Author Type: Registered Nurse Type: Progress Notes Filed: 03/06/2018 9:21 AM Note Text: PRIMARY CARE COORDINATION FOLLOW-UP NOTE Provider Action/FYI PLEASE NOTE BS BELOW Pt has had 4 lb weight gain No noted SOB Instructed CGs to call PCC/PCP if pt has SOB, moist cough or LE edema, verbalized understanding Had all her teeth pulled on Wed, eating soft food and doing well Patient identified by name and date of . YES Spoke to MICHELE Regan at [facility] Summary: Brittnee Le is a 52 year old female who reports glucose readings as noted. DATE 03/06 03/05 03/04 03/03 03/02 03/01 02/28 Fasting 135 138 138 140 152 151 150 4 PM 90 167 145 119 114 150 Weight 196 196 194 193 194 192 Any low blood sugars during this period of reporting No Patient's diabetes medications as follows: LANTUS U-100 INSULIN 100 unit/mL Give 24 units subq daily at 4 PM or as directed metFORMIN (GLUCOPHAGE) 500 mg TAKE 2 TABLETS BY MOUTH TWICE DAILY WITH MEALS. . glipiZIDE (GLUCOTROL) 5 mg TAKE 1 TABLET TWICE A DAY Savings Teller plan for next outreach: Will follow up one month Signature Asia Burrell RN March 06, 2018 CNPTOUTREACH Observed: 03/06/2018 Status: COMPLETED Source: [place] 12:00 AM [facility] REPOSITORY Patient Outreach ([facility]) BRITTNEE LE ([id number]) 1965 F Date Time Provider Department 03/06/18 ASIA BURRELL (RAMÓN) [facility] During your visit today, we recorded the following information about you: Asia Burrell RN 03/06/2018 9:21 AM Signed PRIMARY CARE COORDINATION FOLLOW-UP NOTE Provider Action/FYI PLEASE NOTE BS BELOW Pt has had 4 lb weight gain No noted SOB Instructed CGs to call PCC/PCP if pt has SOB, moist cough or LE edema, verbalized understanding Had all her teeth pulled on Fri, eating soft food and doing well Patient identified by name and date of . YES Spoke to Shereen at [facility] Summary: Brittnee Le is a 52 year old female who reports glucose readings as noted. DATE 03/06 03/05 03/04 03/03 03/02 03/01 02/28 Fasting 135 138 138 140 152 151 150 4 PM 90 167 145 119 114 150 Weight 196 196 194 193 194 192 Any low blood sugars during this period of reporting No Patient's diabetes medications as follows: LANTUS U-100 INSULIN 100 unit/mL Give 24 units subq daily at 4 PM or as directed metFORMIN (GLUCOPHAGE) 500 mg TAKE 2 TABLETS BY MOUTH TWICE DAILY WITH MEALS. . glipiZIDE (GLUCOTROL) 5 mg TAKE 1 TABLET TWICE A DAY Savings Teller plan for next outreach: Will follow up one month Signature Asia Burrell RN March 06, 2018 Boris Jones MD 03/06/2018 10:05 AM Signed Same dose. Call list in two weeks. Asia Burrell RN 03/06/2018 10:05 AM Signed Noted Asia Burrell RN March 06, 2018 10:05 AM Asia Burrell RN 03/06/2018 10:07 AM Signed TC from Shereen at [facility], states she made an error, it wasn't Brittnee that had all of her teeth pulled, it was a different client. 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 Chronic Care [3612] Prescriptions as of 03/06/2018 Sig: LANTUS U-100 INSULIN 100 UNIT* Give 24 units subq daily at 4* POTASSIUM CHLORIDE ER 20 MEQ * TAKE 1 TABLET BY MOUTH DAILY FERROUS GLUCONATE 324 MG (36 * Take 1 tablet by mouth twice * COMPOUNDED PRESCRIPTION Please discontinue Tylenol ES* METFORMIN 500 MG TABLET TAKE 2 TABLETS BY MOUTH TWICE* STOOL SOFTENER 100 MG CAPSULE TAKE 1 CAPSULE TWICE A DAY PRAVASTATIN 20 MG TABLET TAKE 1 TABLET BY MOUTH ONCE D* MAGNESIUM HYDROXIDE 400 MG/5 * Take 15 mL by mouth once ziggy* ASPIRIN 325 MG TABLET,DELAYED* Take 1 tablet by mouth once d* ACETAMINOPHEN 500 MG TABLET Take 1 tablet by mouth daily * FUROSEMIDE 20 MG TABLET Take 1 tablet by mouth once d* WHEAT DEXTRIN 3 GRAM/3.8 GRAM* Stir 2 teaspoonfuls into 4-8 * CHOLECALCIFEROL (VITAMIN D3) * Take 1 capsule by mouth once * CLOZAPINE 100 MG TABLET take one tablet at noon, 2 ta* GLIPIZIDE 5 MG TABLET TAKE 1 TABLET TWICE A DAY ALBUTEROL SULFATE CONCENTRATE* Inhale 0.5 mL as instructed o* ALBUTEROL SULFATE HFA 90 MCG/* Inhale 2 Puffs as instructed * LACTULOSE 10 GRAM/15 ML ORAL * Take 30 mL by mouth twice mainor* INSULIN SYRINGE-NEEDLE U-100 * 10 Units once daily. FLOVENT DISKUS 250 MCG/ACTUAT* INHALE ONE PUFF BY MOUTH TWIC* FISH OIL CONCENTRATE ORAL Take by mouth once daily. DESVENLAFAXINE SUCCINATE ER 5* Take 50 mg by mouth once ziggy* LANCETS test BS twice daily 2 days a * RISPERIDONE 2 MG DISINTEGRATI* Take 2 mg by mouth once daily. BLOOD SUGAR DIAGNOSTIC STRIPS test BS twice daily - dx - 25* CLONAZEPAM 1 MG TABLET Take 0.5 mg Bid, 1 mg po at HS PEN NEEDLE, DIABETIC 31 GAUGE* Use one needle per dose. Once* BLOOD-GLUCOSE METER KIT Used once daily to check bloo* * RISPERIDONE MICROSPHERES 50 M* Inject 2 mL intramuscularly e* Problem List As Of Date 03/06/2018 Noted Resolved Schizophreniform disorder, chronic condition (H* Priority: Mild More... Other abnormal glucose [R73.09] Priority: A More... DM w/o Complication Type II [E11.9] INVALID FOR*02/22/2014 Priority: Moderate Gastritis [K29.70] INVALID FOR* Routine general medical examination at a health*INVALID FOR*11/26/2011 Class: Chronic More... Routine gynecological examination [Z01.419] INVALID FOR*11/26/2011 Class: Chronic More... Vitamin D deficiency [E55.9] INVALID FOR* Priority: A More... Liver Function Test Abnormality [R94.5] INVALID FOR* More... 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 Encounter for screening for malignant neoplasm *INVALID FOR* Postmenopausal bleeding [N95.0] INVALID FOR* More... Acute diastolic CHF (congestive heart failure) *INVALID FOR* More... Encounter Status:Closed by ASIA BURRELL on 03/06/18 CNCO Observed: 03/05/2018 Status: COMPLETED Source: [place] 10:06 AM [facility] REPOSITORY [facility] ID: [id number] Author: Mammography Coordinator Service: (none) Author Type: Physician Type: Letter Filed: 03/09/2018 11:31 PM Note Text: March 05, 2018 PID: [id number] Brittnee Le [address] [place] [address] Dear Ms. Le, We are pleased to inform you that the results of your recent breast imaging exam on 03/05/2018 are normal. Early detection of cancer is very important. We also understand recommendations regarding breast cancer screening are controversial. Please discuss with your primary care provider which strategy is best for you and whether a mammogram is right for you. Your imaging studies and report will be kept on file at [facility] as part of your permanent medical record and are available for your continuing care. Thank you for allowing us to help in meeting your health care needs. Sincerely, Dr. Crouch Interpreting Radiologist [facility] (Normal over 40) [facility] SCREENING Observed: 03/05/2018 Status: F Source: [place] 9:03 AM [facility] [place] REPOSITORY * * *Final Report* * * DATE OF EXAM: Mar 05 2018 9:03AM W 0581 - [facility] SCREENING / PROCEDURE REASON: Encounter for screening mammogram for malignant neoplasm of breast * * * * Physician Interpretation * * * * RESULT: #[id number] - [facility] SCREENING BILATERAL DIGITAL SCREENING MAMMOGRAM WITH CAD: 03/05/2018 HISTORY: Encounter For Screening Mammogram For Malignant Neoplasm Of Breast /Screening Mammogram - patient reports NO breast symptoms /Priors available for comparison. RESULT: TECHNIQUE: The study was acquired using full field digital technology and interpreted from soft copy. Current study was also evaluated with a Computer Aided Detection (CAD). Comparison is made to exams dated: 01/03/2017 mammogram, 01/01/2016 mammogram, and 12/28/2014 mammogram - [facility]. There are scattered fibroglandular elements in both breasts. No significant masses, calcifications, or other findings are seen in either breast. There has been no significant interval change. IMPRESSION: NEGATIVE There is no mammographic evidence of malignancy.A 1 year screening mammogram is recommended. Chandra Crouch M.D. pt/yoana:03/05/2018 10:06:35 Cyber Software Engineer: Marilyn VILLALPANDO(Deandre)(Alma), [facility] letter sent: Normal over 40 Mammogram BI-RADS: 1 Negative 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: Yoana Transcribe Date/Time: Mar 05 2018 8:41A Dictated by: CHANDRA CROUCH MD This examination was interpreted and the report reviewed and electronically signed by: CHANDRA CROUCH MD on Mar 05 2018 10:06AM EST [id number] PROGRESS Observed: 02/20/2018 Status: COMPLETED Source: [place] 11:10 AM [facility] REPOSITORY [facility] ID: [id number] Author: Crispin Brown Ma Service: (none) Author Type: (none) Type: Progress Notes Filed: 02/20/2018 11:11 AM Note Text: MICHELE Holguin notified of PCP note below. PROGRESS Observed: 02/20/2018 Status: COMPLETED Source: [place] 9:57 AM [facility] REPOSITORY [facility] ID: [id number] Author: Boris Jones Service: (none) Author Type: Physician Type: Progress Notes Filed: 02/20/2018 11:11 AM Note Text: Sugars look good. Observe leg pain, if continues follow up PROGRESS Observed: 02/20/2018 Status: COMPLETED Source: [place] 8:54 AM [facility] REPOSITORY [facility] ID: [id number] Author: Asia Burrell (Rn) Service: (none) Author Type: Registered Nurse Type: Progress Notes Filed: 02/20/2018 9:56 AM Note Text: PRIMARY CARE COORDINATION FOLLOW-UP NOTE Provider Action/FYI PLEASE NOT BS BELOW Pt hasn't c/o pain in legs at night x several weeks No SOB and weight fluctuates only 2 lbs Patient identified by name and date of . YES Spoke to MICHELE Holguin at [facility] Summary: Brittnee Le is a 52 year old female who reports glucose readings as noted. DATE 02/20 02/19 02/18 02/17 02/16 02/15 02/14 02/13 Fasting 140 127 152 114 122 139 110 159 4 PM 197 117 188 223 183 109 83 Any low blood sugars during this period of reporting No Patient's diabetes medications as follows: LANTUS U-100 INSULIN 100 unit/mL Give 24 units subq daily at 4 PM or as directed metFORMIN (GLUCOPHAGE) 500 mg TAKE 2 TABLETS BY MOUTH TWICE DAILY WITH MEALS. . glipiZIDE (GLUCOTROL) 5 mg TAKE 1 TABLET TWICE A DAY Concerns: TC to [facility], left message to call PCC back with patient's blood sugars Asia Burrell RN February 20, 2018 8:55 AM Savings Teller plan for next outreach: Will follow up one month Signature Asia Burrell RN February 20, 2018 CNPTOUTREACH Observed: 02/20/2018 Status: COMPLETED Source: [place] 12:00 AM [facility] REPOSITORY Patient Outreach (FAMPWS) BRITTNEE LE ([id number]) 1965 F Date Time Provider Department 02/20/18 ASIA BURRELL (RN) FAMPWS During your visit today, we recorded the following information about you: Asia Burrell (Rn) 02/20/2018 9:56 AM Addendum PRIMARY CARE COORDINATION FOLLOW-UP NOTE Provider Action/FYI PLEASE NOT BS BELOW Pt hasn't c/o pain in legs at night x several weeks No SOB and weight fluctuates only 2 lbs Patient identified by name and date of . YES Spoke to MICHELE Holguin at [facility] Summary: Brittnee Le is a 52 year old female who reports glucose readings as noted. DATE 02/20 02/19 02/18 02/17 02/16 02/15 02/14 02/13 Fasting 140 127 152 114 122 139 110 159 4 PM 197 117 188 223 183 109 83 Any low blood sugars during this period of reporting No Patient's diabetes medications as follows: LANTUS U-100 INSULIN 100 unit/mL Give 24 units subq daily at 4 PM or as directed metFORMIN (GLUCOPHAGE) 500 mg TAKE 2 TABLETS BY MOUTH TWICE DAILY WITH MEALS. . glipiZIDE (GLUCOTROL) 5 mg TAKE 1 TABLET TWICE A DAY Concerns: TC to [facility], left message to call PCC back with patient's blood sugars Asia Burrell RN February 20, 2018 8:55 AM Savings Teller plan for next outreach: Will follow up one month Signature Asia Burrell RN February 20, 2018 Boris Jones 02/20/2018 11:11 AM Signed Sugars look good. Observe leg pain, if continues follow up Crispin Brown Ma 02/20/2018 11:11 AM Signed MICHELE Holguin notified of PCP note below. 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 Chronic Care [1909] Prescriptions as of 02/20/2018 Sig: LANTUS U-100 INSULIN 100 UNIT* Give 24 units subq daily at 4* POTASSIUM CHLORIDE ER 20 MEQ * TAKE 1 TABLET BY MOUTH DAILY FERROUS GLUCONATE 324 MG (36 * Take 1 tablet by mouth twice * COMPOUNDED PRESCRIPTION Please discontinue Tylenol ES* METFORMIN 500 MG TABLET TAKE 2 TABLETS BY MOUTH TWICE* STOOL SOFTENER 100 MG CAPSULE TAKE 1 CAPSULE TWICE A DAY PRAVASTATIN 20 MG TABLET TAKE 1 TABLET BY MOUTH ONCE D* MAGNESIUM HYDROXIDE 400 MG/5 * Take 15 mL by mouth once ziggy* ASPIRIN 325 MG TABLET,DELAYED* Take 1 tablet by mouth once d* ACETAMINOPHEN 500 MG TABLET Take 1 tablet by mouth daily * FUROSEMIDE 20 MG TABLET Take 1 tablet by mouth once d* WHEAT DEXTRIN 3 GRAM/3.8 GRAM* Stir 2 teaspoonfuls into 4-8 * CHOLECALCIFEROL (VITAMIN D3) * Take 1 capsule by mouth once * CLOZAPINE 100 MG TABLET take one tablet at noon, 2 ta* GLIPIZIDE 5 MG TABLET TAKE 1 TABLET TWICE A DAY ALBUTEROL SULFATE CONCENTRATE* Inhale 0.5 mL as instructed o* ALBUTEROL SULFATE HFA 90 MCG/* Inhale 2 Puffs as instructed * LACTULOSE 10 GRAM/15 ML ORAL * Take 30 mL by mouth twice mainor* INSULIN SYRINGE-NEEDLE U-100 * 10 Units once daily. FLOVENT DISKUS 250 MCG/ACTUAT* INHALE ONE PUFF BY MOUTH TWIC* FISH OIL CONCENTRATE ORAL Take by mouth once daily. DESVENLAFAXINE SUCCINATE ER 5* Take 50 mg by mouth once ziggy* LANCETS test BS twice daily 2 days a * RISPERIDONE 2 MG DISINTEGRATI* Take 2 mg by mouth once daily. BLOOD SUGAR DIAGNOSTIC STRIPS test BS twice daily - dx - 25* CLONAZEPAM 1 MG TABLET Take 0.5 mg Bid, 1 mg po at HS PEN NEEDLE, DIABETIC 31 GAUGE* Use one needle per dose. Once* BLOOD-GLUCOSE METER KIT Used once daily to check bloo* * RISPERIDONE MICROSPHERES 50 M* Inject 2 mL intramuscularly e* Problem List As Of Date 02/20/2018 Noted Resolved Schizophreniform disorder, chronic condition (H* Priority: Mild More... Other abnormal glucose [R73.09] Priority: A More... DM w/o Complication Type II [E11.9] INVALID FOR*02/22/2014 Priority: Moderate Gastritis [K29.70] INVALID FOR* Routine general medical examination at a health*INVALID FOR*11/26/2011 Class: Chronic More... Routine gynecological examination [Z01.419] INVALID FOR*11/26/2011 Class: Chronic More... Vitamin D deficiency [E55.9] INVALID FOR* Priority: A More... Liver Function Test Abnormality [R94.5] INVALID FOR* More... 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 Encounter for screening for malignant neoplasm *INVALID FOR* Postmenopausal bleeding [N95.0] INVALID FOR* More... Acute diastolic CHF (congestive heart failure) *INVALID FOR* More... Encounter Status:Closed by CRISPIN BROWN MA on 02/20/18 CBC W/DIFF, AUTOMATED Collected: 02/19/2018 Status: F Source: [place] 8:42 AM [facility] REPOSITORY TYPE CODE TESTS RESULT OUT OF RANGE REFERENCE UNITS LAB L100.1000 4.4-11.0 K/mm3 Normal WBC 7.4 LAB L100.1200 4.2-5.4 M/mm3 Normal RBC 4.43 LAB L100.1300 12.0-15.0 g/dl Normal HGB 13.0 LAB L100.1400 37-47 % Normal HCT 39.7 LAB L100.1500 81-99 fL Normal MCV 89.6 LAB L100.1600 27.0-32.0 pg Normal MCH 29.3 LAB L100.1700 32-36 g/gl Normal MCHC 32.7 LAB L100.1810 11.6-14.6 % Normal RDW CV 14.1 LAB L100.1820 35.1-43.9 fl High RDW SD 45.3 LAB L100.1900 150-450 K/mm3 Normal PLT 195 LAB L100.2000 6.2-12.0 fl Normal MPV 10.2 LAB L100.2100 47-70 % Normal NEUT% 64.7 LAB L100.2200 19-41 % Normal LY% 27.7 LAB L100.2300 0-10 % Normal MONO% 6.9 LAB L100.2400 0-5 % Normal EO% 0.1 LAB L100.2500 0-1 % Normal BASO% 0.3 LAB L100.2550 0.0-0.9 % Normal IM GRAN % 0.300 Result Comment: IG% - Immature Granulocytes (promyelocytes, myelocytes and metamyelocytes) > 1% indicates that a LEFT SHIFT is Present. LAB L100.2620 2.0-7.7 X10 3/uL Normal Absolute Neut 4.8 LAB L100.2720 0.83-4.51 X10 3/ul Normal Absolute Lymph 2.05 Performed By: #### L100.0100 #### [facility] [address] [place], [place], [address] BASIC METABOLIC PANL Collected: 02/17/2018 Status: F Source: [place] 8:27 AM [facility] [place] REPOSITORY TYPE CODE TESTS RESULT OUT OF REFERENCE UNITS RANGE LAB GLU 74-99 mg/dL High Glucose 143 Result Comment: The [place] [employer] (ADA) provides guidance for cutoff values for fasting glucose and random glucose. The ADA defines fasting as no caloric intake for at least 8 hours. Fas ting plasma glucose results between 100 to 125 mg/dL indicate increased risk for diabetes (prediabetes). Fasting plasma glucose results greater than or equal to 126 mg/dL meet the criteria for diagnosis of diabetes. In the absence of unequivocal hyperglycemia, results should be confirmed by repeat testing. In a patient with classic symptoms of hyperglycemia or hyperglycemic crisis, random plasma glucose results greater than or equal to 200 mg/dL meet the criteria for diagnosis of diabetes. Reference: Standards of Medical Care in Diabetes 2016, [place] [employer]. Diabetes Care. 2016.39(Suppl 1). LAB BUN 7-21 mg/dL BUN 7 LAB CRET 0.58-0.96 mg/dL Creatinine 0.62 LAB NA 136-144 mmol/L Sodium 136 LAB K 3.7-5.1 mmol/L Potassium 4.4 LAB CL 97-105 mmol/L Chloride Low 95 LAB CO2 22-30 mmol/L CO2 26 LAB AGAP 9-18 mmol/L Anion Gap 15 LAB CA 8.5-10.2 mg/dL Calcium, Total 9.5 LAB GFRAA eGFR- Amer. >60 LAB GFRNAA . eGFR-All Other Races >60 Result Comment: eGFR (Estimated GFR) Units of measure: mL/min/1.73 meters squared eGFR is derived from the reexpressed MDRD Study equation using the following parameters: serum creatinine, age, gender and race. The creatinine assay has been calibrated to be traceable to IDMS. An eGFR <60 mL/min/1.73m2 for >3 months is consistent with chronic kidney disease. Refer to KDOQI guidelines for clinical interpretation. In patients with unstable renal function, e.g. those with acute kidney injury, the eGFR may not accurately reflect actual GFR. Performed By: #### BMP #### [facility] [employer] [address], [place] [address] IRON AND TIBC Collected: 02/17/2018 Status: F Source: [place] 8:27 AM [facility] REPOSITORY TYPE CODE TESTS RESULT OUT OF REFERENCE UNITS RANGE LAB IRN 41-186 ug/dL Iron 49 LAB TIBC 232-386 ug/dL TIBC 358 LAB SAT 15-57 % Low Transferrin Saturatn 14 Performed By: #### IRON #### [facility] [employer] [address], [place] [address] PROGRESS Observed: 02/10/2018 Status: COMPLETED Source: [place] 3:31 PM [facility] REPOSITORY [facility] ID: [id number] Author: Asia Crews) Indra Service: (none) Author Type: Registered Nurse Type: Progress Notes Filed: 02/10/2018 3:32 PM Note Text: TC with Leola appt made with Christian Muñoz for 03/11. Also noted pt will be getting a new guardian, court date is 02/24. Asia Burrell RN February 10, 2018 3:32 PM PROGRESS Observed: 02/09/2018 Status: COMPLETED Source: [place] 10:30 AM [facility] REPOSITORY [facility] ID: [id number] Author: Asia Crews) Indra Service: (none) Author Type: Registered Nurse Type: Progress Notes Filed: 02/09/2018 10:38 AM Note Text: PRIMARY CARE COORDINATION FOLLOW-UP NOTE Provider Action/FYI FYI Patient identified by name and date of . YES Spoke to Ezio at [facility] and left message for Le[facility] Summary: TC to Le[facility] at [facility], left message to call PCC back re: gastro referral for constipation. Concerns: TC from Ezio, pt was seen in ER for pink eye and given eye gtts. Asked how to keep infection from spreading through intermediate. Instructed on excellent hand washing for pt and staff and wiping down surfaces pt has touched with Sani wipes, verbalized understanding. Also asked if they have the orders for pt to increase insulin, states yes. Savings Teller plan for next outreach: Will follow up one month Signature Asia Burrell RN February 09, 2018 WILDER Observed: 02/09/2018 Status: COMPLETED Source: [place] 12:00 AM [facility] REPOSITORY Patient Outreach (FAMPWS) BRITTNEE LE ([id number]) 1965 F Date Time Provider Department 02/09/18 ASIA BURRELL (RN) FAMPWS During your visit today, we recorded the following information about you: Asia Burrell RN 02/09/2018 10:38 AM Signed PRIMARY CARE COORDINATION FOLLOW-UP NOTE Provider Action/FYI FYI Patient identified by name and date of . YES Spoke to Ezio at [facility] and left message for Leola Mckeon at [facility] Summary: TC to Leola at [facility], left message to call PCC back re: gastro referral for constipation. Concerns: TC from Ezio, pt was seen in ER for pink eye and given eye gtts. Asked how to keep infection from spreading through intermediate. Instructed on excellent hand washing for pt and staff and wiping down surfaces pt has touched with Sani wipes, verbalized understanding. Also asked if they have the orders for pt to increase insulin, states yes. Savings Teller plan for next outreach: Will follow up one month Signature Asia Burrell RN February 09, 2018 Asia Burrell RN 02/10/2018 3:32 PM Signed TC with Leola, appt made with Christian Muñoz for 03/11. Also noted pt will be getting a new guardian, court date is 02/24. 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 [2361] Prescriptions as of 02/09/2018 Sig: LANTUS U-100 INSULIN 100 UNIT* Give 24 units subq daily at 4* POTASSIUM CHLORIDE ER 20 MEQ * TAKE 1 TABLET BY MOUTH DAILY FERROUS GLUCONATE 324 MG (36 * Take 1 tablet by mouth twice * COMPOUNDED PRESCRIPTION Please discontinue Tylenol ES* METFORMIN 500 MG TABLET TAKE 2 TABLETS BY MOUTH TWICE* STOOL SOFTENER 100 MG CAPSULE TAKE 1 CAPSULE TWICE A DAY PRAVASTATIN 20 MG TABLET TAKE 1 TABLET BY MOUTH ONCE D* MAGNESIUM HYDROXIDE 400 MG/5 * Take 15 mL by mouth once ziggy* ASPIRIN 325 MG TABLET,DELAYED* Take 1 tablet by mouth once d* ACETAMINOPHEN 500 MG TABLET Take 1 tablet by mouth daily * FUROSEMIDE 20 MG TABLET Take 1 tablet by mouth once d* WHEAT DEXTRIN 3 GRAM/3.8 GRAM* Stir 2 teaspoonfuls into 4-8 * CHOLECALCIFEROL (VITAMIN D3) * Take 1 capsule by mouth once * CLOZAPINE 100 MG TABLET take one tablet at noon, 2 ta* GLIPIZIDE 5 MG TABLET TAKE 1 TABLET TWICE A DAY ALBUTEROL SULFATE CONCENTRATE* Inhale 0.5 mL as instructed o* ALBUTEROL SULFATE HFA 90 MCG/* Inhale 2 Puffs as instructed * LACTULOSE 10 GRAM/15 ML ORAL * Take 30 mL by mouth twice mainor* INSULIN SYRINGE-NEEDLE U-100 * 10 Units once daily. FLOVENT DISKUS 250 MCG/ACTUAT* INHALE ONE PUFF BY MOUTH TWIC* FISH OIL CONCENTRATE ORAL Take by mouth once daily. DESVENLAFAXINE SUCCINATE ER 5* Take 50 mg by mouth once ziggy* LANCETS test BS twice daily 2 days a * RISPERIDONE 2 MG DISINTEGRATI* Take 2 mg by mouth once daily. BLOOD SUGAR DIAGNOSTIC STRIPS test BS twice daily - dx - 25* CLONAZEPAM 1 MG TABLET Take 0.5 mg Bid, 1 mg po at HS PEN NEEDLE, DIABETIC 31 GAUGE* Use one needle per dose. Once* BLOOD-GLUCOSE METER KIT Used once daily to check bloo* * RISPERIDONE MICROSPHERES 50 M* Inject 2 mL intramuscularly e* Problem List As Of Date 02/09/2018 Noted Resolved Schizophreniform disorder, chronic condition (H* Priority: Mild More... Other abnormal glucose [R73.09] Priority: A More... DM w/o Complication Type II [E11.9] INVALID FOR*02/22/2014 Priority: Moderate Gastritis [K29.70] INVALID FOR* Routine general medical examination at a health*INVALID FOR*11/26/2011 Class: Chronic More... Routine gynecological examination [Z01.419] INVALID FOR*11/26/2011 Class: Chronic More... Vitamin D deficiency [E55.9] INVALID FOR* Priority: A More... Liver Function Test Abnormality [R94.5] INVALID FOR* More... 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 Encounter for screening for malignant neoplasm *INVALID FOR* Postmenopausal bleeding [N95.0] INVALID FOR* More... Acute diastolic CHF (congestive heart failure) *INVALID FOR* More... Encounter Status:Closed by ASIA BURRELL on 02/10/18 DISCHARGE INSTRUCTION Observed: 02/08/2018 Status: F Source: [place] 10:16 AM [facility] REPOSITORY [facility] Medical Records Department [address] [place] [address] Discharge Instruction 02/08/18 1013 MR#: [id number] Acct: [id number] Name: BRITTNEE LE Shawanda Rep #: [id number] : 1965 52 From: Lore Avalos DO PCP: Boris Jones MD Status: REG ER ED Disposition - Plan for ED Patient: Chief Complaint: Eye Problem Prescriptions: Hydrocodone Bitart/Apap 5-325 [[place] 5/325] 1 - 2 tab PO Q4H PRN PRN 3 Days #12 tab PRN Reason: Pain Referrals: Boris Jones MD [Primary Care Provider] - Additional Instructions: you have conjunctivitis and a scratch on your eye What to do if you have Problems For any increased pain, shortness of breath, bleeding, nausea or vomiting, chest pain, or any unexpected problems, contact your Primary Care Provider. Call [facility] ([phone]) or report to the closest Emergency Room. Call 911 if necessary. 02/08/18 1016 <Electronically signed by Lore Avalos DO> Date Lore Avalos DO Cosigner Signature (If Indicated): Date CC: Boris Jones MD DISCHARGE INSTRUCTION Observed: 02/08/2018 Status: F Source: [place] 10:16 AM [facility] REPOSITORY [facility] Medical Records Department [address] [place] [id number] Discharge Instruction 02/08/18 1016 MR#: [id number] Acct: [id number] Name: BRITTNEE LE Rep #: [id number] : 1965 52 From: Lore Avalos DO PCP: Boris Jones MD Status: REG ER ED Disposition - Plan for ED Patient: Chief Complaint: Eye Problem Prescriptions: Hydrocodone Bitart/Apap 5-325 [[place] 5/325] 1 - 2 tab PO Q4H PRN PRN 3 Days #12 tab PRN Reason: Pain Referrals: Boris Jones MD [Primary Care Provider] - Additional Instructions: you have conjunctivitis and a scratch on your eye What to do if you have Problems For any increased pain, shortness of breath, bleeding, nausea or vomiting, chest pain, or any unexpected problems, contact your Primary Care Provider. Call [facility] ([phone]) or report to the closest Emergency Room. Call 911 if necessary. 02/08/18 1016 <Electronically signed by Lore Avalos DO> Date Lore Avalos DO Cosigner Signature (If Indicated): Date CC: Boris Jones MD EMERGENCY DEPARTMENT Observed: 02/08/2018 Status: F Source: [place] SUMMARY 10:13 AM [facility] REPOSITORY [facility] Medical Records Department [address] [place] [address] Emergency Department Summary 02/08/18 1011 MR#: [id number] Acct: [id number] Name: BRITTNEE LE Rep #: [id number] : 1965 52 From: Lore Avalos DO PCP: Boris Jones MD Status: REG ER - ER Visit Summary Date of Service: 02/08/18 Chief Complaint: [Foreign body sensation left eye] History of Present Illness: The patient is a 52 F [presents the emergency department from urgent care with left eye discomfort that started this morning. Patient states that she woke up this morning and felt like there was something in her eye so she rubbed her eye vigorously. Patient developed discomfort. She was seen at the urgent care and had fluorescein dye instilled as well as tetracaine and her pain significantly improved. Apparently there was uptake of floor seen and was sent over to ER for slit-lamp exam. Patient denies any photophobia or visual change at this time.] Physical Examination: [HEENT-PERRLA, EOMI. Cranial nerves II through XII grossly intact. TMs clear. Mucous membranes moist. No adenopathy. Left eye- there is focal conjunctival injection medially. Eyelids were everted no foreign bodies noted. No floor seen available in the emergency department. I did perform a slit lamp exam and I do not see any defects in the cornea or abrasions. Patient does have superficial abrasion noted of the medial conjunctiva. Cardiovascular-regular rate and rhythm without murmur or ectopy Lungs-clear to auscultation, chest wall stable without crepitus or subcu emphysema Abdomen-normoactive bowel sounds, soft, nontender, no rebound or rigidity, no peritoneal signs. Extremities-intact 4, normal range of motion, normal pulses, atraumatic] Test Results: [None indicated] Emergency Department Course and Treatment: Patient will be started on gentamicin ophthalmic drops [] Treatment Plan: [Patient to follow-up with [facility] within the next 1-2 days. Patient actually has an appointment scheduled with [facility] in 2 days. Patient advised to call ophthalmology tomorrow and if she still has significant discomfort to be seen tomorrow.] Disposition: [Discharged home in stable condition] Impression: [Conjunctivitis Left conjunctival abrasion] This note was generated with Appsperse dictation software. It may contain incorrect words, spelling, and punctuation that were not noted in review of the chart prior to signing ED Disposition - Plan for ED Patient: Chief Complaint: Eye Problem Referrals: Boris Jones MD [Primary Care Provider] - What to do if you have Problems For any increased pain, shortness of breath, bleeding, nausea or vomiting, chest pain, or any unexpected problems, contact your Primary Care Provider. Call [facility] ([phone]) or report to the closest Emergency Room. Call 911 if necessary. 02/08/18 1013 <Electronically signed by Lore Avalos DO> Date Lore Avalos DO Cosigner Signature (If Indicated): Date CC: Boris Jones MD PROGRESS Observed: 02/08/2018 Status: COMPLETED Source: [place] 9:18 AM [facility] REPOSITORY [facility] ID: [id number] Author: Leigh Ann Ren Service: (none) Author Type: Physician Shoe Reconditioner Type: Progress Notes Filed: 02/11/2018 2:23 PM Note Text: 02/08/2018 Patient presents with: Eye Problem SUBJECTIVE: This is a 52 year old that is here today for Complaint(s) of eye redness and irritated. + watery drainage. Wears glasses, no contact lenses. Woke up this morning with sx. Uncertain if she got anything in the eye. No eye trauma. No vision changes. 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 MEDICATIONS Current Outpatient Prescriptions: LANTUS U-100 INSULIN 100 unit/mL injection Give 24 units subq daily at 4 PM or as directed potassium chloride ER (K-DUR, KLOR-CON) 20 mEq tablet TAKE 1 TABLET BY MOUTH DAILY Ferrous Gluconate 324 mg (36 mg iron) tab Take 1 tablet by mouth twice daily with meals. COMPOUNDED PRESCRIPTION Please discontinue Tylenol ES 500 mg daily at bedtime metFORMIN (GLUCOPHAGE) 500 mg tablet TAKE 2 TABLETS BY MOUTH TWICE DAILY WITH MEALS. . STOOL SOFTENER 100 mg capsule TAKE 1 CAPSULE TWICE A DAY pravastatin (PRAVACHOL) 20 mg tablet TAKE 1 TABLET BY MOUTH ONCE DAILY. magnesium hydroxide (MILK OF MAGNESIA) 400 mg/5 mL suspension Take 15 mL by mouth once daily as needed for Constipation (for no bowel movement after three days). aspirin, enteric coated (ASPIRIN, ENTERIC COATED) 325 mg EC tablet Take 1 tablet by mouth once daily. Take with food. acetaminophen (TYLENOL EXTRA STRENGTH) 500 mg tablet Take 1 tablet by mouth daily at bedtime. furosemide (LASIX) 20 mg tablet Take 1 tablet by mouth once daily. wheat dextrin (BENEFIBER SUGAR FREE, DEXTRIN,) 3 gram/3.8 gram powd Stir 2 teaspoonfuls into 4-8 oz of beverage or soft food daily Cholecalciferol, Vitamin D3, 1,000 unit cap Take 1 capsule by mouth once daily. cloZAPine (CLOZARIL) 100 mg tablet take one tablet at noon, 2 tablets at 3 PM and 3 tablets at Bedtime glipiZIDE (GLUCOTROL) 5 mg tablet TAKE 1 TABLET TWICE A DAY albuterol (PROVENTIL) 5 mg/mL nebu Inhale 0.5 mL as instructed one time only for 1 dose. 1 DOSE NOW - BACK OFFICE. PLACE 0.5 ML PER DROPPER AND 2.5 ML OF NORMAL SALINE INTO RESERVOIR. albuterol HFA (VENTOLIN HFA) 90 mcg/actuation inhaler Inhale 2 Puffs as instructed every 4 hours as needed for Wheezing/Shortness of Breath. lactulose (CONSTULOSE) 10 gram/15 mL solution Take 30 mL by mouth twice daily. Prn constipation; hold for diarrhea Insulin Syringe-Needle U-100 (BD INSULIN SYRINGE) 1 mL 28 gauge x 1/2 syrg 10 Units once daily. FLOVENT DISKUS 250 mcg/actuation dsdv INHALE ONE PUFF BY MOUTH TWICE DAILY DIRECTED OMEGA-3 FATTY ACIDS (FISH OIL CONCENTRATE ORAL) Take by mouth once daily. desvenlafaxine ER (PRISTIQ) 50 mg 24 hr tablet Take 50 mg by mouth once daily. Lancets lancets test BS twice daily 2 days a week- dx 250.00 - non-insulin risperiDONE orally disintegrating (RISPERDAL M) 2 mg disintegrating tablet Take 2 mg by mouth once daily. blood sugar diagnostic (FREESTYLE LITE STRIPS) test strip test BS twice daily - dx - 250.00 -insulin Yes clonazePAM (KLONOPIN) 1 mg tablet Take 0.5 mg Bid, 1 mg po at HS insulin needles, DISPOSABLE, (PEN NEEDLE) 31 X 5/16 ndle Use one needle per dose. Once per day. Blood-Glucose Meter (FREESTYLE LITE METER) monitoring kit Used once daily to check blood sugar. 250.00 risperidone (RISPERDAL CONSTA) 50 mg/2 mL INTRAMUSC. injection Inject 2 mL intramuscularly every 2 weeks. No current facility-administered medications for this visit. 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 OBJECTIVE: BP 108/60 Pulse 68 Temp 36.8 ?C (98.3 ?F) (Left Tympanic) Resp 20 Wt 87.1 kg (192 lb) LMP 09/12/2017 BMI 36.28 kg/m? APPEARANCE Well appearing, alert, in no acute distress, well-hydrated, well nourished. EYES PERRLA, left conjunctiva erythematous and injected. + clear drainage. No obvious FB fluoroscein staining with tetracaine drops reveals large uptake over the inferior/medial portion of the iris. ASSESSMENT/PLAN: 1. Irritation of left eye - ICD9: 379.99, ICD10: H57.8 Suspect corneal abrasion, referral to ER for further eval with slit lamp as indicated Brother will drive her to ER ER notified and report given-[facility] The patient indicates understanding of these issues and agrees with the plan. Leigh Ann Ren PA-C 02/11/2018 CNOV Observed: 02/08/2018 Status: COMPLETED Source: [place] 9:15 AM [facility] REPOSITORY Office Visit (WSTR) BRITTNEE LE ([id number]) 1965 F Date Time Provider Department 02/08/18 9:15 AM LEIGH ANN REN) [facility]STR During your visit today, we recorded the following information about you: Temperature Pulse Respiration Blood pressure 98.3 degrees 68/minute 20/minute 108/60 Weight 87.1 kg Leigh Ann Ren PA-C 02/11/2018 2:23 PM Signed 02/08/2018 Patient presents with: Eye Problem SUBJECTIVE: This is a 52 year old that is here today for Complaint(s) of eye redness and irritated. + watery drainage. Wears glasses, no contact lenses. Woke up this morning with sx. Uncertain if she got anything in the eye. No eye trauma. No vision changes. PAST MEDICAL HISTORY Diagnosis Date - Constipation - COPD (chronic obstructive pulmonary disease) ([facility]) - Diabetes 1.5, managed as type 2 ([facility]) found at [facility], pt was on metformin for a while but taken off - pt never told if she had DM or not - Major depressive disorder, recurrent episode, unspecified - Nonspecific elevation of levels of transaminase or lactic acid dehydrogenase (LDH) - LIDA (obstructive sleep apnea) - Pneumonia - Schizophreniform disorder, chronic condition ([facility]) - Simple endometrial hyperplasia without atypia mirena IUD 01/2011 ALLERGIES Patient has no known allergies. MEDICATIONS Current Outpatient Prescriptions: LANTUS U-100 INSULIN 100 unit/mL injection Give 24 units subq daily at 4 PM or as directed potassium chloride ER (K-DUR, KLOR-CON) 20 mEq tablet TAKE 1 TABLET BY MOUTH DAILY Ferrous Gluconate 324 mg (36 mg iron) tab Take 1 tablet by mouth twice daily with meals. COMPOUNDED PRESCRIPTION Please discontinue Tylenol ES 500 mg daily at bedtime metFORMIN (GLUCOPHAGE) 500 mg tablet TAKE 2 TABLETS BY MOUTH TWICE DAILY WITH MEALS. . STOOL SOFTENER 100 mg capsule TAKE 1 CAPSULE TWICE A DAY pravastatin (PRAVACHOL) 20 mg tablet TAKE 1 TABLET BY MOUTH ONCE DAILY. magnesium hydroxide (MILK OF MAGNESIA) 400 mg/5 mL suspension Take 15 mL by mouth once daily as needed for Constipation (for no bowel movement after three days). aspirin, enteric coated (ASPIRIN, ENTERIC COATED) 325 mg EC tablet Take 1 tablet by mouth once daily. Take with food. acetaminophen (TYLENOL EXTRA STRENGTH) 500 mg tablet Take 1 tablet by mouth daily at bedtime. furosemide (LASIX) 20 mg tablet Take 1 tablet by mouth once daily. wheat dextrin (BENEFIBER SUGAR FREE, DEXTRIN,) 3 gram/3.8 gram powd Stir 2 teaspoonfuls into 4-8 oz of beverage or soft food daily Cholecalciferol, Vitamin D3, 1,000 unit cap Take 1 capsule by mouth once daily. cloZAPine (CLOZARIL) 100 mg tablet take one tablet at noon, 2 tablets at 3 PM and 3 tablets at Bedtime glipiZIDE (GLUCOTROL) 5 mg tablet TAKE 1 TABLET TWICE A DAY albuterol (PROVENTIL) 5 mg/mL nebu Inhale 0.5 mL as instructed one time only for 1 dose. 1 DOSE NOW - BACK OFFICE. PLACE 0.5 ML PER DROPPER AND 2.5 ML OF NORMAL SALINE INTO RESERVOIR. albuterol HFA (VENTOLIN HFA) 90 mcg/actuation inhaler Inhale 2 Puffs as instructed every 4 hours as needed for Wheezing/Shortness of Breath. lactulose (CONSTULOSE) 10 gram/15 mL solution Take 30 mL by mouth twice daily. Prn constipation; hold for diarrhea Insulin Syringe-Needle U-100 (BD INSULIN SYRINGE) 1 mL 28 gauge x 1/2 syrg 10 Units once daily. FLOVENT DISKUS 250 mcg/actuation dsdv INHALE ONE PUFF BY MOUTH TWICE DAILY DIRECTED OMEGA-3 FATTY ACIDS (FISH OIL CONCENTRATE ORAL) Take by mouth once daily. desvenlafaxine ER (PRISTIQ) 50 mg 24 hr tablet Take 50 mg by mouth once daily. Lancets lancets test BS twice daily 2 days a week- dx 250.00 - non-insulin risperiDONE orally disintegrating (RISPERDAL M) 2 mg disintegrating tablet Take 2 mg by mouth once daily. blood sugar diagnostic (FREESTYLE LITE STRIPS) test strip test BS twice daily - dx - 250.00 -insulin Yes clonazePAM (KLONOPIN) 1 mg tablet Take 0.5 mg Bid, 1 mg po at HS insulin needles, DISPOSABLE, (PEN NEEDLE) 31 X 5/16 ndle Use one needle per dose. Once per day. Blood-Glucose Meter (FREESTYLE LITE METER) monitoring kit Used once daily to check blood sugar. 250.00 risperidone (RISPERDAL CONSTA) 50 mg/2 mL INTRAMUSC. injection Inject 2 mL intramuscularly every 2 weeks. No current facility-administered medications for this visit. 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 OBJECTIVE: BP 108/60 Pulse 68 Temp 36.8 ?C (98.3 ?F) (Left Tympanic) Resp 20 Wt 87.1 kg (192 lb) LMP 09/12/2017 BMI 36.28 kg/m? APPEARANCE Well appearing, alert, in no acute distress, well- hydrated, well nourished. EYES PERRLA, left conjunctiva erythematous and injected. + clear drainage. No obvious FB fluoroscein staining with tetracaine drops reveals large uptake over the inferior/medial portion of the iris. ASSESSMENT/PLAN: 1. Irritation of left eye - ICD9: 379.99, ICD10: H57.8 Suspect corneal abrasion, referral to ER for further eval with slit lamp as indicated Brother will drive her to ER ER notified and report given-[facility] The patient indicates understanding of these issues and agrees with the plan. Leigh Ann Ren PA-C 02/11/2018 Referring Provider: SELF [[id number]] Allergies As of Date: 02/08/2018 (No Known Allergies) Date Reviewed: 02/08/2018 Reviewed by: Sonia Grant Ma - Fully Assessed Reason for Visit: Eye Problem [43] Primary Visit Diagnosis:Irritation of left eye [H57.8] Prescriptions as of 02/08/2018 Sig: LANTUS U-100 INSULIN 100 UNIT* Give 24 units subq daily at 4* POTASSIUM CHLORIDE ER 20 MEQ * TAKE 1 TABLET BY MOUTH DAILY FERROUS GLUCONATE 324 MG (36 * Take 1 tablet by mouth twice * COMPOUNDED PRESCRIPTION Please discontinue Tylenol ES* METFORMIN 500 MG TABLET TAKE 2 TABLETS BY MOUTH TWICE* STOOL SOFTENER 100 MG CAPSULE TAKE 1 CAPSULE TWICE A DAY PRAVASTATIN 20 MG TABLET TAKE 1 TABLET BY MOUTH ONCE D* MAGNESIUM HYDROXIDE 400 MG/5 * Take 15 mL by mouth once ziggy* ASPIRIN 325 MG TABLET,DELAYED* Take 1 tablet by mouth once d* ACETAMINOPHEN 500 MG TABLET Take 1 tablet by mouth daily * FUROSEMIDE 20 MG TABLET Take 1 tablet by mouth once d* WHEAT DEXTRIN 3 GRAM/3.8 GRAM* Stir 2 teaspoonfuls into 4-8 * CHOLECALCIFEROL (VITAMIN D3) * Take 1 capsule by mouth once * CLOZAPINE 100 MG TABLET take one tablet at noon, 2 ta* GLIPIZIDE 5 MG TABLET TAKE 1 TABLET TWICE A DAY ALBUTEROL SULFATE CONCENTRATE* Inhale 0.5 mL as instructed o* ALBUTEROL SULFATE HFA 90 MCG/* Inhale 2 Puffs as instructed * LACTULOSE 10 GRAM/15 ML ORAL * Take 30 mL by mouth twice mainor* INSULIN SYRINGE-NEEDLE U-100 * 10 Units once daily. FLOVENT DISKUS 250 MCG/ACTUAT* INHALE ONE PUFF BY MOUTH TWIC* FISH OIL CONCENTRATE ORAL Take by mouth once daily. DESVENLAFAXINE SUCCINATE ER 5* Take 50 mg by mouth once ziggy* LANCETS test BS twice daily 2 days a * RISPERIDONE 2 MG DISINTEGRATI* Take 2 mg by mouth once daily. BLOOD SUGAR DIAGNOSTIC STRIPS test BS twice daily - dx - 25* CLONAZEPAM 1 MG TABLET Take 0.5 mg Bid, 1 mg po at HS PEN NEEDLE, DIABETIC 31 GAUGE* Use one needle per dose. Once* BLOOD-GLUCOSE METER KIT Used once daily to check bloo* * RISPERIDONE MICROSPHERES 50 M* Inject 2 mL intramuscularly e* Problem List As Of Date 02/08/2018 Noted Resolved Schizophreniform disorder, chronic condition (H* Priority: Mild More... Other abnormal glucose [R73.09] Priority: A More... DM w/o Complication Type II [E11.9] INVALID FOR*02/22/2014 Priority: Moderate Gastritis [K29.70] INVALID FOR* Routine general medical examination at a health*INVALID FOR*11/26/2011 Class: Chronic More... Routine gynecological examination [Z01.419] INVALID FOR*11/26/2011 Class: Chronic More... Vitamin D deficiency [E55.9] INVALID FOR* Priority: A More... Liver Function Test Abnormality [R94.5] INVALID FOR* More... 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 Encounter for screening for malignant neoplasm *INVALID FOR* Postmenopausal bleeding [N95.0] INVALID FOR* More... Acute diastolic CHF (congestive heart failure) *INVALID FOR* More... Encounter Status:Closed by LEIGH ANN REN PA-C on 02/11/18 PROGRESS Observed: 02/06/2018 Status: COMPLETED Source: [place] 3:33 PM [facility] ID: [id number] Author: Asia Crews) Indra Service: (none) Author Type: Registered Nurse Type: Progress Notes Filed: 02/06/2018 4:23 PM Note Text: The following prescriptions have been called to [facility] 02/06/2018 at 4:23 PM by Asia Burrell RN. I spoke with Jeanna in the pharmacy. Signed Prescriptions Disp Refills LANTUS U-100 INSULIN 100 unit/mL injection 10 mL 11 Sig: Give 24 units subq daily at 4 PM or as directed MIGUELINA: Yes Asia Burrell RN February 06, 2018 4:23 PM TC to Shereen at [facility], instructed for patient to increase Lantus to 24 units at 4 PM, states pt just took her dose, informed she can wait to increase until tomorrow. Asia Burrell RN TC to [facility], left message to call PCC back. Asia Burrell RN February 06, 2018 3:34 PM PROGRESS Observed: 02/06/2018 Status: COMPLETED Source: [place] 2:40 PM [facility] REPOSITORY [facility]NO ID: [id number] Author: Boris Jones Service: (none) Author Type: Physician Type: Progress Notes Filed: 02/06/2018 4:23 PM Note Text: Lets go to 24 units a day. Call sugars in two weeks. PROGRESS Observed: 02/06/2018 Status: COMPLETED Source: [place] 2:12 PM [facility] REPOSITORY [facility] ID: [id number] Author: Asia Crews) Indra Service: (none) Author Type: Registered Nurse Type: Progress Notes Filed: 02/06/2018 2:25 PM Note Text: PRIMARY CARE COORDINATION FOLLOW-UP NOTE Provider Action/FYI RLS, no improvement with Fe supplement CHF-follows fluid restriction, weighs daily, no s/s CHF Continues chronic constipation, will call ZABRINA Bhagat re: scheduling GI MD See BS below Patient identified by name and date of . YES Spoke to MICHELE Holguin at [facility] Summary: Fe tablets have not helped restless legs at night, pt states the past 2 nights have been terrible Following fluid restrictions Weighing Daily, no wt fluctuations of 3 or more lbs Wt-193 No SOB or LE edema Infrequent raspy non-productive cough Pt continues to have constipation. Takes medications daily and increases meds if no BM in 3 days, takes another 2-3 days to have normal BM but pt reports having to strain Brittnee Le is a 52 year old female who reports glucose readings as noted. DATE 02/06 02/05 02/04 02/03 02/02 Fasting 136 145 155 122 137 Bedtime 159 107 169 174 Any low blood sugars during this period of reporting No Patient's diabetes medications as follows: metFORMIN (GLUCOPHAGE) 500 mg TAKE 2 TABLETS BY MOUTH TWICE DAILY WITH MEALS. . LANTUS 100 unit/mL Give 22 units subq daily at 4 PM or as directed glipiZIDE (GLUCOTROL) 5 mg TAKE 1 TABLET TWICE A DAY [facility] Teller plan for next outreach: Will follow up Friday Signature Asia Burrell RN February 06, 2018 [place] Observed: 02/06/2018 Status: COMPLETED Source: [place] 12:00 AM [facility] REPOSITORY Patient Outreach (FAMPWS) BRITTNEE LE ([id number]) 1965 F Date Time Provider Department 02/06/18 ASIA BURRELL (RN) FAMPWS During your visit today, we recorded the following information about you: Asia Burrell RN 02/06/2018 2:25 PM Signed PRIMARY CARE COORDINATION FOLLOW-UP NOTE Provider Action/FYI RLS, no improvement with Fe supplement CHF-follows fluid restriction, weighs daily, no s/s CHF Continues chronic constipation, will call ZABRINA Bhagat re: scheduling GI MD See BS below Patient identified by name and date of . YES Spoke to MICHELE Holguin at [facility] Summary: Fe tablets have not helped restless legs at night, pt states the past 2 nights have been terrible Following fluid restrictions Weighing Daily, no wt fluctuations of 3 or more lbs Wt-193 No SOB or LE edema Infrequent raspy non-productive cough Pt continues to have constipation. Takes medications daily and increases meds if no BM in 3 days, takes another 2-3 days to have normal BM but pt reports having to strain Brittnee Le is a 52 year old female who reports glucose readings as noted. DATE 02/06 02/05 02/04 02/03 02/02 Fasting 136 145 155 122 137 Bedtime 159 107 169 174 Any low blood sugars during this period of reporting No Patient's diabetes medications as follows: metFORMIN (GLUCOPHAGE) 500 mg TAKE 2 TABLETS BY MOUTH TWICE DAILY WITH MEALS. . LANTUS 100 unit/mL Give 22 units subq daily at 4 PM or as directed glipiZIDE (GLUCOTROL) 5 mg TAKE 1 TABLET TWICE A DAY [employer] plan for next outreach: Will follow up Friday Signature Asia Burrell RN February 06, 2018 Boris Jones MD 02/06/2018 4:23 PM Signed Lets go to 24 units a day. Call sugars in two weeks. Asia Burrell RN 02/06/2018 4:23 PM Signed The following prescriptions have been called to [place] [facility] 02/06/2018 at 4:23 PM by Asia Burrell RN. I spoke with Jeanna in the pharmacy. Signed Prescriptions Disp Refills LANTUS U-100 INSULIN 100 unit/mL injection 10 mL 11 Sig: Give 24 units subq daily at 4 PM or as directed MIGUELINA: Yes Asia Burrell RN February 06, 2018 4:[address] [facility] at [facility], instructed for patient to increase Lantus to 24 units at 4 PM, states pt just took her dose, informed she can wait to increase until tomorrow. Asia Burrell RN TC to [facility], left message to call PCC back. 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 Chronic Care [3615] Visit Diagnosis:Type 2 diabetes mellitus with diabetic nephropathy, with long-term current use of insulin ([facility]) [E11.21, Z79.4] Order(s):LANTUS U-100 INSULIN 100 unit/mL injectionGive 24 units subq daily at 4 PM or as directedDisp: 10 mLRfl: 11 Prescriptions as of 02/06/2018 Sig: LANTUS U-100 INSULIN 100 UNIT* Give 24 units subq daily at 4* POTASSIUM CHLORIDE ER 20 MEQ * TAKE 1 TABLET BY MOUTH DAILY FERROUS GLUCONATE 324 MG (36 * Take 1 tablet by mouth twice * COMPOUNDED PRESCRIPTION Please discontinue Tylenol ES* METFORMIN 500 MG TABLET TAKE 2 TABLETS BY MOUTH TWICE* STOOL SOFTENER 100 MG CAPSULE TAKE 1 CAPSULE TWICE A DAY PRAVASTATIN 20 MG TABLET TAKE 1 TABLET BY MOUTH ONCE D* MAGNESIUM HYDROXIDE 400 MG/5 * Take 15 mL by mouth once ziggy* ASPIRIN 325 MG TABLET,DELAYED* Take 1 tablet by mouth once d* ACETAMINOPHEN 500 MG TABLET Take 1 tablet by mouth daily * FUROSEMIDE 20 MG TABLET Take 1 tablet by mouth once d* WHEAT DEXTRIN 3 GRAM/3.8 GRAM* Stir 2 teaspoonfuls into 4-8 * CHOLECALCIFEROL (VITAMIN D3) * Take 1 capsule by mouth once * CLOZAPINE 100 MG TABLET take one tablet at noon, 2 ta* GLIPIZIDE 5 MG TABLET TAKE 1 TABLET TWICE A DAY ALBUTEROL SULFATE CONCENTRATE* Inhale 0.5 mL as instructed o* ALBUTEROL SULFATE HFA 90 MCG/* Inhale 2 Puffs as instructed * LACTULOSE 10 GRAM/15 ML ORAL * Take 30 mL by mouth twice mainor* INSULIN SYRINGE-NEEDLE U-100 * 10 Units once daily. FLOVENT DISKUS 250 MCG/ACTUAT* INHALE ONE PUFF BY MOUTH TWIC* FISH OIL CONCENTRATE ORAL Take by mouth once daily. DESVENLAFAXINE SUCCINATE ER 5* Take 50 mg by mouth once ziggy* LANCETS test BS twice daily 2 days a * RISPERIDONE 2 MG DISINTEGRATI* Take 2 mg by mouth once daily. BLOOD SUGAR DIAGNOSTIC STRIPS test BS twice daily - dx - 25* CLONAZEPAM 1 MG TABLET Take 0.5 mg Bid, 1 mg po at HS PEN NEEDLE, DIABETIC 31 GAUGE* Use one needle per dose. Once* BLOOD-GLUCOSE METER KIT Used once daily to check bloo* * RISPERIDONE MICROSPHERES 50 M* Inject 2 mL intramuscularly e* Problem List As Of Date 02/06/2018 Noted Resolved Schizophreniform disorder, chronic condition (H* Priority: Mild More... Other abnormal glucose [R73.09] Priority: A More... DM w/o Complication Type II [E11.9] INVALID FOR*02/22/2014 Priority: Moderate Gastritis [K29.70] INVALID FOR* Routine general medical examination at a health*INVALID FOR*11/26/2011 Class: Chronic More... Routine gynecological examination [Z01.419] INVALID FOR*11/26/2011 Class: Chronic More... Vitamin D deficiency [E55.9] INVALID FOR* Priority: A More... Liver Function Test Abnormality [R94.5] INVALID FOR* More... 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 Encounter for screening for malignant neoplasm *INVALID FOR* Postmenopausal bleeding [N95.0] INVALID FOR* More... Acute diastolic CHF (congestive heart failure) *INVALID FOR* More... Prescriptions ordered this encounter Disp Refills Start End LANTUS U-100 INSULIN 100 UNIT/ML SUB* 10 mL 11 02/06/2018 Class: Med Update Sig: Give 24 units subq daily at 4 PM or as directed Medications Discontinued During This Encounter LANTUS 100 unit/mL injection 10 mL 11 11/17/2017 02/06/2018 Sig: Give 22 units subq daily at 4 PM or as directed Disc: Reason for discontinue is not on file. Encounter Status:Closed by ASIA BURRELL on 02/06/18 CBC W/DIFF, AUTOMATED Collected: 01/22/2018 Status: F Source: [place] 11:00 AM [facility] REPOSITORY TYPE CODE TESTS RESULT OUT OF RANGE REFERENCE UNITS LAB L100.1000 4.4-11.0 K/mm3 Normal WBC 9.0 LAB L100.1200 4.2-5.4 M/mm3 Normal RBC 4.36 LAB L100.1300 12.0-15.0 g/dl Normal HGB 12.3 LAB L100.1400 37-47 % Normal HCT 39.3 LAB L100.1500 81-99 fL Normal MCV 90.1 LAB L100.1600 27.0-32.0 pg Normal MCH 28.2 LAB L100.1700 32-36 g/gl Low MCHC 31.3 LAB L100.1810 11.6-14.6 % Normal RDW CV 14.5 LAB L100.1820 35.1-43.9 fl High RDW SD 47.6 LAB L100.1900 150-450 K/mm3 Normal PLT 206 LAB L100.2000 6.2-12.0 fl Normal MPV 10.0 LAB L100.2100 47-70 % Normal NEUT% 68.0 LAB L100.2200 19-41 % Normal LY% 26.5 LAB L100.2300 0-10 % Normal MONO% 5.2 LAB L100.2400 0-5 % Normal EO% 0.1 LAB L100.2500 0-1 % Normal BASO% 0.1 LAB L100.2550 0.0-0.9 % Normal IM GRAN % 0.100 Result Comment: IG% - Immature Granulocytes (promyelocytes, myelocytes and metamyelocytes) > 1% indicates that a LEFT SHIFT is Present. LAB L100.2620 2.0-7.7 X10 3/uL Normal Absolute Neut 6.1 LAB L100.2720 0.83-4.51 X10 3/ul Normal Absolute Lymph 2.39 Performed By: #### L100.0100 #### [facility] [address] [place], [place], [address] BASIC METABOLIC PANL Collected: 01/20/2018 Status: F Source: [place] 8:54 AM [facility] REPOSITORY TYPE CODE TESTS RESULT OUT OF REFERENCE UNITS RANGE LAB GLU 74-99 mg/dL Test Glucose sent to [facility]. Result Comment: Account Credited [facility] LAB BUN 7-21 mg/dL Test sent BUN to [facility]. Result Comment: Account Credited [facility] CRET 0.58-0.96 mg/dL Creatinine Test sent to [facility]. Result Comment: Account Credited [facility] LAB NA 136-144 mmol/L Test Sodium sent to [facility]. Result Comment: Account Credited [facility] K 3.7-5.1 mmol/L Test Potassium sent to [facility]. Result Comment: Account Credited [facility] CL 97-105 mmol/L Test Chloride sent to [facility]. Result Comment: Account Credited [facility] CO2 22-30 mmol/L Test sent CO2 to [facility]. Result Comment: Account Credited [facility] AGAP 9-18 mmol/L Test sent Anion Gap to [facility]. Result Comment: Account Credited [facility] CA 8.5-10.2 mg/dL Test Calcium, Total sent to [facility]. Result Comment: Account Credited [facility] GFRAA eGFR- Amer. Test sent to [facility]. Result Comment: Account Credited [facility] GFRNAA . eGFR-All Test sent Other Races to [facility]. Result Comment: Account Credited [facility] GFRPED eGFR-Ped. Test sent Factor to [facility]. Result Comment: Account Credited [facility] CBC AND DIFFERENTIAL Collected: 01/20/2018 Status: F Source: [place] 8:54 AM [facility] REPOSITORY TYPE CODE TESTS RESULT OUT OF REFERENCE UNITS RANGE LAB WBC 3.70-11.00 k/uL Test WBC sent to [facility]. Result Comment: Account Credited [facility] RBC 3.90-5.20 m/uL Test sent RBC to [facility]. Result Comment: Account Credited [facility] HGB 11.5-15.5 g/dL Hemoglobin Test sent to [facility]. Result Comment: Account Credited [facility] HCT 36.0-46.0 % Hematocrit Test sent to [facility]. Result Comment: Account Credited [facility] MCV 80.0-100.0 fL Test sent MCV to [facility]. Result Comment: Account Credited [facility] MCH 26.0-34.0 pG Test sent MCH to [facility]. Result Comment: Account Credited [facility] MCHC 30.5-36.0 g/dL Test MCHC sent to [facility]. Result Comment: Account Credited [facility] RDWCV 11.5-15.0 % Test RDW-CV sent to [facility]. Result Comment: Account Credited [facility] PLTCT 150-400 k/uL Test Platelet Count sent to [facility]. Result Comment: Account Credited [facility] MPV 9.0-12.7 fL Test sent MPV to [facility]. Result Comment: Account Credited [facility] DORI Recheck Test sent to [facility]. Result Comment: Account Credited [facility] ANEUT % Test sent to Neut% [facility]. Result Comment: Account Credited [facility] AANEUT 1.45-7.50 k/uL Test Abs sent to [facility]. Result Comment: Account Credited [facility] ALYMP % Test sent to Lymph% [facility]. Result Comment: Account Credited [facility] AALYMP 1.00-4.00 k/uL Test Abs Lymph sent to [facility]. Result Comment: Account Credited [facility] AMONO % Test sent to [place]% [facility]. Result Comment: Account Credited [facility] AAMONO <0.87 k/uL Test sent Abs [place] to [facility]. Result Comment: Account Credited [facility] AEOS % Test sent to Eosin% [facility]. Result Comment: Account Credited [facility] AAEOS <0.46 k/uL Test sent Abs Eosin to [facility]. Result Comment: Account Credited [facility] ABASO % Test sent to Baso% [facility]. Result Comment: Account Credited [facility] AABASO <0.11 k/uL Test sent Abs Baso to [facility]. Result Comment: Account Credited [facility] REVW Test sent to Review [facility]. Result Comment: Account Credited [facility] CBCCOM Comment Test sent to [facility]. Result Comment: Account Credited [facility] CK Collected: 01/20/2018 Status: F Source: [facility] 8:54 AM [facility]AMP[facility] REPOSITORY TYPE CODE TESTS RESULT OUT OF REFERENCE UNITS RANGE LAB CK 42-196 U/L Test CK sent to [facility]. Result Comment: Account Credited [facility] HEMOGLOBIN A1C Collected: 01/20/2018 Status: F Source: [place] 8:54 AM [facility] REPOSITORY TYPE CODE TESTS RESULT OUT OF REFERENCE UNITS RANGE LAB HGBA1C 4.0-6.0 % Test Hemoglobin A1c sent to [facility]. Result Comment: Account Credited [facility] LAB HBA0 mg/dL Est. Test sent Average Glucose to [facility]. Result Comment: Account Credited [facility] HEPATIC FUNCTN PANEL Collected: 01/20/2018 Status: F Source: [place] 8:54 AM [facility] REPOSITORY TYPE CODE TESTS RESULT OUT OF REFERENCE UNITS RANGE LAB ALB 3.9-4.9 g/dL Test Albumin sent to [facility]. Result Comment: Account Credited [facility] LAB TBIL 0.2-1.3 mg/dL Bilirubin, Test Total sent to [facility]. Result Comment: Account Credited [facility] LAB CBIL <0.2 mg/dL Bilirubin,Conjugated Test sent to [facility]. Result Comment: Account Credited [facility] ALKP 32-117 U/L Alkaline Test Phosphatase sent to [facility]. Result Comment: Account Credited [facility] LAB AST 13-35 U/L Test sent AST to [facility]. Result Comment: Account Credited [facility] LAB ALT 7-38 U/L Test sent to ALT [facility]. Result Comment: Account Credited [facility] LAB TP 6.3-8.0 g/dL Protein, Test Total sent to [facility]. Result Comment: Account Credited [facility] IRON AND TIBC Collected: 01/20/2018 Status: F Source: [place] 8:54 AM [facility] REPOSITORY TYPE CODE TESTS RESULT OUT OF REFERENCE UNITS RANGE LAB IRN 41-186 ug/dL Test Iron sent to [facility]. Result Comment: Account Credited [facility] TIBC 232-386 ug/dL Test sent TIBC to [facility]. Result Comment: Account Credited [facility] LAB SAT 15-57 % Transferrin Test sent Saturatn to [facility]. Result Comment: Account Credited [facility] LIPID PANEL, BASIC Collected: 01/20/2018 Status: F Source: [place] 8:54 AM [facility] REPOSITORY TYPE CODE TESTS RESULT OUT OF REFERENCE UNITS RANGE LAB CHOL <200 mg/dL Cholesterol Test sent to [facility]. Result Comment: Account Credited [facility] LAB TRIGLY <150 mg/dL Triglyceride Test sent to [facility]. Result Comment: Account Credited [facility] LAB HDL >39 mg/dL HDL-Cholesterol Test sent to [facility]. Result Comment: Account Credited [facility] LAB LDL <100 mg/dL LDL-Cholesterol Test sent to [facility]. Result Comment: Account Credited [facility] LAB NONHDL 90-159 mg/dL Non HDL Test Cholesterol sent to [facility]. Result Comment: Account Credited [facility] LAB FT hrs Fasting Time 13 LAB VLDL <30 mg/dL VLDL Cholesterol Test sent to [facility]. Result Comment: Account Credited [facility] TCHDL <5.10 Test sent TC:HDL Ratio to [facility]. Result Comment: Account Credited [facility] LAB LDLHDL <2.54 Test sent LDL:HDL Ratio to [facility]. Result Comment: Account Credited [facility] VITAMIN D 25 HYDROXY Collected: 01/20/2018 Status: F Source: [place] 8:54 AM [facility] [place] REPOSITORY TYPE CODE TESTS RESULT OUT OF REFERENCE UNITS RANGE LAB VITD 31.0-80.0 ng/mL Test Vitamin D 25 sent to [facility]. Result Comment: Account Credited [facility] CBC W/DIFF, AUTOMATED Collected: 01/20/2018 Status: F Source: [place] 8:45 AM [facility] REPOSITORY TYPE CODE TESTS RESULT OUT OF RANGE REFERENCE UNITS LAB L100.1000 4.4-11.0 K/mm3 Normal WBC 8.8 LAB L100.1200 4.2-5.4 M/mm3 Normal RBC 4.42 LAB L100.1300 12.0-15.0 g/dl Normal HGB 12.8 LAB L100.1400 37-47 % Normal HCT 39.9 LAB L100.1500 81-99 fL Normal MCV 90.3 LAB L100.1600 27.0-32.0 pg Normal MCH 29.0 LAB L100.1700 32-36 g/gl Normal MCHC 32.1 LAB L100.1810 11.6-14.6 % Normal RDW CV 14.5 LAB L100.1820 35.1-43.9 fl High RDW SD 47.0 LAB L100.1900 150-450 K/mm3 Normal PLT 206 LAB L100.2000 6.2-12.0 fl Normal MPV 11.0 LAB L100.2100 47-70 % High NEUT% 72.8 LAB L100.2200 19-41 % Normal LY% 20.2 LAB L100.2300 0-10 % Normal MONO% 6.4 LAB L100.2400 0-5 % Normal EO% 0.1 LAB L100.2500 0-1 % Normal BASO% 0.3 LAB L100.2550 0.0-0.9 % Normal IM GRAN % 0.200 Result Comment: IG% - Immature Granulocytes (promyelocytes, myelocytes and metamyelocytes) > 1% indicates that a LEFT SHIFT is Present. LAB L100.2620 2.0-7.7 X10 3/uL Normal Absolute Neut 6.4 LAB L100.2720 0.83-4.51 X10 3/ul Normal Absolute Lymph 1.77 Performed By: #### L100.0100 #### [facility] [address] [place], [place], [address] BASIC METABOLIC Collected: 01/20/2018 Status: F Source: [place] PROFILE (BMP) 8:45 AM [facility] REPOSITORY TYPE CODE TESTS RESULT OUT OF RANGE REFERENCE UNITS LAB L501.0100 74-106 mg/dL High GLU 138 Result Comment: Fasting Glucose result greater than or equal to 126 mg/dL suggests DIABETES MELLITUS per A.D.A. criteria. Please note revised GLUCOSE reference range effective 2017. LAB L501.1000 7-18 mg/dL Normal BUN 7 LAB L501.1100 0.55-1.02 mg/dL Normal CREAT,SERUM 0.64 Result Comment: The validity of the calculated GFR AND GFRAA in patients over 70 years has not been determined. Clinical correlation is essential. LAB L501.1110 >60 mL/min Normal EST GFR 102 Result Comment: Non- GFR Calc LAB L501.1115 >60 mL/min Normal EST GFR - AA 123 Result Comment: GFR Calc LAB L501.1300 10-20 RATIO Normal BUN/CRE 10.9 LAB L501.2200 8.5-10.1 mg/dL CA Normal 9.0 LAB L501.5300 136-145 mmol/L NA Normal 138 LAB L501.5600 3.5-5.1 mmol/L K Normal 4.4 LAB L501.5900 98-107 mmol/L CL Normal 102 LAB L501.6100 21.0-32.0 mmol/L Normal CO2 26.0 LAB L501.6200 5-15 Normal GAP 10 Performed By: #### L500.2500, L500.3400, L500.4100, L501.3620, L503.6075, L503.6150 #### [facility] [address] [place], [place], [id number] LIVER PROFILE Collected: 01/20/2018 Status: F Source: [place] 8:45 AM [facility] REPOSITORY TYPE CODE TESTS RESULT OUT OF RANGE REFERENCE UNITS LAB L501.1500 6.4-8.2 g/dL Normal T PROT 7.7 LAB L501.1800 3.2-5.0 g/dL Normal ALB 3.8 LAB L501.1950 2.2-4.2 g/dL Normal GLOB 3.9 LAB L501.4100 15-37 U/L Normal AST 36 LAB L501.4305 45-117 U/L High ALK P 135 LAB L501.4405 13-56 U/L High ALT 67 Result Comment: Please note revised ALT reference range effective 2017. LAB L501.4600 0.20-1.00 mg/dL Normal T BILI 0.20 LAB L501.4700 0.00-0.30 mg/dL Normal D BILI 0.08 Performed By: #### L500.2500, L500.3400, L500.4100, L501.3620, L503.6075, L503.6150 #### [facility] [address] [place], [address] LIPID PROFILE Collected: 01/20/2018 Status: F Source: [place] 8:45 AM [facility] REPOSITORY TYPE CODE TESTS RESULT OUT OF RANGE REFERENCE UNITS LAB L501.4900 200 mg/dL Normal CHOL 166 Result Comment: <200 mg/dL Desirable 200-240 mg/dL Borderline >240 mg/dL High Risk LAB L501.5000 mg/dL High TRIG 210 Result Comment: The drugs N-Acetylcysteine and Metamizole may falsely depress this assay. Serum Triglycerides Reference Interval Normal <150 mg/dL Borderline high 150 - 199 mg/dL High 200 - 499 mg/dL Very High > or = 500 mg/dL LAB L501.6400 mg/dL Normal HDL 54 Result Comment: The drugs N-Acetylcysteine and Metamizole may falsely depress this assay. Reference Range HDL <40 mg/dL Low HDL Cholesterol HDL >or= 60 mg/dL High HDL Cholesterol LAB L501.6500 0-130 mg/dL Normal LDL 70 LAB L501.6600 5-40 mg/dL High VLDL 42 Performed By: #### L500.2500, L500.3400, L500.4100, L501.3620, L503.6075, L503.6150 #### [facility] [address] [place], [address] CPK TOTAL, CREATINE Collected: 01/20/2018 Status: F Source: [place] KINASE 8:45 AM [facility] REPOSITORY TYPE CODE TESTS RESULT OUT OF RANGE REFERENCE UNITS LAB L501.3620 26-192 U/L Normal CPK TOTAL 37 Performed By: #### L500.2500, L500.3400, L500.4100, L501.3620, L503.6075, L503.6150 #### [facility] [address] [place], [address] IRON BINDING Collected: 01/20/2018 Status: F Source: [place] CAPACITY,TOTAL 8:45 AM [facility] REPOSITORY TYPE CODE TESTS RESULT OUT OF RANGE REFERENCE UNITS LAB L503.6075 250-450 ug/dL Normal TIBC 340 Performed By: #### L500.2500, L500.3400, L500.4100, L501.3620, L503.6075, L503.6150 #### [facility] [address] [place], [address] IRON Collected: 01/20/2018 Status: F Source: [place] 8:45 AM [facility] REPOSITORY TYPE CODE TESTS RESULT OUT OF RANGE REFERENCE UNITS LAB L503.6150 50-170 ug/dL Low IRON 46 Performed By: #### L500.2500, L500.3400, L500.4100, L501.3620, L503.6075, L503.6150 #### [facility] [address] [place], [address] HEMOGLOBIN A1C Collected: 01/20/2018 Status: F Source: [place] 8:45 AM [facility] REPOSITORY TYPE CODE TESTS RESULT OUT OF RANGE REFERENCE UNITS LAB L501.9985 4.2-6.3 % High HGB A1C 6.8 Performed By: #### L501.9985 #### [facility] [address] [place], [address] VITAMIN D,25 HYDROXY Collected: 01/20/2018 Status: F Source: [place] 8:45 AM [facility] REPOSITORY TYPE CODE TESTS RESULT OUT OF RANGE REFERENCE UNITS LAB L506.1000 29.95-100.01 ng/mL Normal Vitamin D 39.6 25-OH Result Comment: Vitamin D 25(OH) Status Range Deficiency <20 ng/mL (50nmol/L) Insuffciency 20 - 30 ng/mL (50 - 75 nmol/L) Sufficiency 30 - 100 ng/mL (75 - 250 nmol/L) Toxicity >100 ng/mL (>250 nmol/L) Performed By: #### L506.1000 #### [facility] [address] [place], [address] PROGRESS Observed: 01/14/2018 Status: COMPLETED Source: [place] 4:25 PM [facility] REPOSITORY HNO ID: [id number] Author: Asia Crews) Indra Service: (none) Author Type: Registered Nurse Type: Progress Notes Filed: 01/14/2018 4:26 PM Note Text: TC to Ivett at [facility] and Sweetie at [facility] informing PCP wroted an order to discontinue pt's bedtime dose of Tylenol. Asia Burrell RN January 14, 2018 4:26 PM PROGRESS Observed: 01/14/2018 Status: COMPLETED Source: [place] 11:28 AM [facility] REPOSITORY HNO ID: [id number] Author: Asia Crews) Indra Service: (none) Author Type: Registered Nurse Type: Progress Notes Filed: 01/14/2018 12:07 PM Note Text: PRIMARY CARE COORDINATION FOLLOW-UP NOTE Provider Action/FYI Patient doesn't want to take Tylenol at HS Feels it is causing her to feel like she was going to pass out, weakness and nausea Pt states she is using Pari Linn which is helping her restless legs PRESCRIPTION PENDED FOR D/C TYLENOL TO BE FAXED TO [place] Please file if you approve Patient identified by name and date of . YES Spoke to patient and Donald from [facility] Concerns: TC from [place] states pt doesn't want to take the Tylenol at HS Spoke with patient, states they Tylenol caused her to feel like she was going to pass out, weakness and nausea. She doesn't want to take it anymore Savings Teller plan for next outreach: Will follow up one month Signature Asia Burrell RN January 14, 2018 CNPTOUTREACH Observed: 01/14/2018 Status: COMPLETED Source: [place] 12:00 AM [facility] REPOSITORY Patient Outreach (FAMPWS) REYBRITTNEE ([id number]) 1965 F Date Time Provider Department 01/14/18 ASIA BURRELL (RN) CHRISTIAN During your visit today, we recorded the following information about you: Asia Burrell RN 01/14/2018 12:07 PM Signed PRIMARY CARE COORDINATION FOLLOW-UP NOTE Provider Action/FYI Patient doesn't want to take Tylenol at HS Feels it is causing her to feel like she was going to pass out, weakness and nausea Pt states she is using Pari Linn which is helping her restless legs PRESCRIPTION PENDED FOR D/C TYLENOL TO BE FAXED TO [facility] Please file if you approve Patient identified by name and date of . YES Spoke to patient and Donald from [facility] Concerns: TC from Donald states pt doesn't want to take the Tylenol at HS Spoke with patient, states they Tylenol caused her to feel like she was going to pass out, weakness and nausea. She doesn't want to take it anymore Savings Teller plan for next outreach: Will follow up one month Signature Asia Burrell RN January 14, 2018 Asia Burrell RN 01/14/2018 4:26 PM Signed TC to Ivett at [facility] and Sweetie at [facility] informing PCP wroted an order to discontinue pt's bedtime dose of Tylenol. Asia Burrell RN January 14, 2018 4:26 PM Allergies As of Date: 01/14/2018 (No Known Allergies) Date Reviewed: 01/06/2018 Reviewed by: Delfina Camacho LPN - Fully Assessed Reason for Visit: Patient Accounts Coordinator - Patient Initiated [[id number]] Primary Visit Diagnosis:Restless legs [G25.81] Order(s):COMPOUNDED PRESCRIPTIONPlease discontinue Tylenol ES 500 mg daily at bedtimeDisp: Rfl: Prescriptions as of 01/14/2018 Sig: COMPOUNDED PRESCRIPTION Please discontinue Tylenol ES* METFORMIN 500 MG TABLET TAKE 2 TABLETS BY MOUTH TWICE* STOOL SOFTENER 100 MG CAPSULE TAKE 1 CAPSULE TWICE A DAY PRAVASTATIN 20 MG TABLET TAKE 1 TABLET BY MOUTH ONCE D* MAGNESIUM HYDROXIDE 400 MG/5 * Take 15 mL by mouth once ziggy* ASPIRIN 325 MG TABLET,DELAYED* Take 1 tablet by mouth once d* ACETAMINOPHEN 500 MG TABLET Take 1 tablet by mouth daily * FUROSEMIDE 20 MG TABLET Take 1 tablet by mouth once d* LANTUS U-100 INSULIN 100 UNIT* Give 22 units subq daily at 4* POTASSIUM CHLORIDE ER 20 MEQ * TAKE 1 TABLET BY MOUTH DAILY WHEAT DEXTRIN 3 GRAM/3.8 GRAM* Stir 2 teaspoonfuls into 4-8 * CHOLECALCIFEROL (VITAMIN D3) * Take 1 capsule by mouth once * CLOZAPINE 100 MG TABLET take one tablet at noon, 2 ta* GLIPIZIDE 5 MG TABLET TAKE 1 TABLET TWICE A DAY ALBUTEROL SULFATE CONCENTRATE* Inhale 0.5 mL as instructed o* ALBUTEROL SULFATE HFA 90 MCG/* Inhale 2 Puffs as instructed * LACTULOSE 10 GRAM/15 ML ORAL * Take 30 mL by mouth twice mainor* INSULIN SYRINGE-NEEDLE U-100 * 10 Units once daily. FLOVENT DISKUS 250 MCG/ACTUAT* INHALE ONE PUFF BY MOUTH TWIC* FISH OIL CONCENTRATE ORAL Take by mouth once daily. DESVENLAFAXINE SUCCINATE ER 5* Take 50 mg by mouth once ziggy* LANCETS test BS twice daily 2 days a * RISPERIDONE 2 MG DISINTEGRATI* Take 2 mg by mouth once daily. BLOOD SUGAR DIAGNOSTIC STRIPS test BS twice daily - dx - 25* CLONAZEPAM 1 MG TABLET Take 0.5 mg Bid, 1 mg po at HS PEN NEEDLE, DIABETIC 31 GAUGE* Use one needle per dose. Once* BLOOD-GLUCOSE METER KIT Used once daily to check bloo* * RISPERIDONE MICROSPHERES 50 M* Inject 2 mL intramuscularly e* Problem List As Of Date 01/14/2018 Noted Resolved Schizophreniform disorder, chronic condition (H* Priority: Mild More... Other abnormal glucose [R73.09] Priority: A More... DM w/o Complication Type II [E11.9] INVALID FOR*02/22/2014 Priority: Moderate Gastritis [K29.70] INVALID FOR* Routine general medical examination at a health*INVALID FOR*11/26/2011 Class: Chronic More... Routine gynecological examination [Z01.419] INVALID FOR*11/26/2011 Class: Chronic More... Vitamin D deficiency [E55.9] INVALID FOR* Priority: A More... Liver Function Test Abnormality [R94.5] INVALID FOR* More... 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 Encounter for screening for malignant neoplasm *INVALID FOR* Postmenopausal bleeding [N95.0] INVALID FOR* More... Acute diastolic CHF (congestive heart failure) *INVALID FOR* More... Prescriptions ordered this encounter Disp Refills Start End COMPOUNDED PRESCRIPTION 01/14/2018 Class: Med Update Sig: Please discontinue Tylenol ES 500 mg daily at bedtime Encounter Status:Closed by ASIA BURRELL on 01/14/18 FECAL OCCULT BLD Collected: 01/13/2018 Status: F Source: [facility] 5:16 PM [facility] HOSPITAL REPOSITORY TYPE CODE TESTS RESULT OUT OF REFERENCE UNITS RANGE LAB IFO Negative Immuno Negative FOB Result Comment: This test was developed and its performance characteristics determined by [facility]'s [facility] [place] ([facility]). It has not been cleared or approved by the FDA. [facility] is regulated under CLIA as qualified to perform high-complexity testing. This test is used for clinical purposes. It should not be regarded as investigational or for research. Performed By: #### IFOBT #### [facility] [address] [place], [place] [address] PROGRESS Observed: 01/06/2018 Status: COMPLETED Source: [place] 4:32 PM [facility] REPOSITORY HNO ID: [id number] Author: Asia PiperRn) Indra Service: (none) Author Type: Registered Nurse Type: Progress Notes Filed: 01/06/2018 4:36 PM Note Text: PRIMARY CARE COORDINATION IN OFFICE VISIT WITH PCP Patient has been identified by name and date of . PCP Assessment/Plan: Reviewed PCP plan with patient using Teach Back Discussed chronic constipation and adding MOM prn Discussed RLS, PCP will do labs to assess and will add Tylenol ES at [facility] Plan of Care: Patient concerns: Pt worried about constipation, RLS (sx on and off x 1 yr) and asking to take baby ASA daily Next Office Visit: Visit date not found Plan For Next Call: One month Asia Burrell RN January 06, 2018 PROGRESS Observed: 01/06/2018 Status: COMPLETED Source: [place] 4:05 PM [facility] REPOSITORY HNO ID: [id number] Author: Boris Jones Service: (none) Author Type: Physician Type: Progress Notes Filed: 01/07/2018 9:23 AM Note Text: Patient presents with: 2 month follow up: question if should be taking asa daily Constipation: states been 8 days since had BM restless leg: mainly after going to bed at night. HPI: Patient presents today for office visit for follow up. GASTROENTEROLOGY: has chronic constipation. Takes multiple meds. Has nothing to use prn. No abd pain No blood in stools No nausea or vomiting. This is not a change in her patterns. RLS:having some RLS symptoms. Has been there for some time. Would be hesitant to add more meds. Discussed using tylenol at . DM:sugars stable. No hypoglycemic spells. HLD:no chest pain or shortness of breath. No new edema. PSYCH:emotionally is stable. No new changes. Continues to see psych. CHF: no increased shortness of breath or edema. Some weight gain but could be related to above gi issues. MEDICATIONS: Current Outpatient Prescriptions: metFORMIN (GLUCOPHAGE) 500 mg tablet TAKE 2 TABLETS BY MOUTH TWICE DAILY WITH MEALS. . STOOL SOFTENER 100 mg capsule TAKE 1 CAPSULE TWICE A DAY pravastatin (PRAVACHOL) 20 mg tablet TAKE 1 TABLET BY MOUTH ONCE DAILY. furosemide (LASIX) 20 mg tablet Take 1 tablet by mouth once daily. LANTUS 100 unit/mL injection Give 22 units subq daily at 4 PM or as directed potassium chloride ER (K-DUR, KLOR-CON) 20 mEq tablet TAKE 1 TABLET BY MOUTH DAILY wheat dextrin (BENEFIBER SUGAR FREE, DEXTRIN,) 3 gram/3.8 gram powd Stir 2 teaspoonfuls into 4-8 oz of beverage or soft food daily Cholecalciferol, Vitamin D3, 1,000 unit cap Take 1 capsule by mouth once daily. cloZAPine (CLOZARIL) 100 mg tablet take one tablet at noon, 2 tablets at 3 PM and 3 tablets at Bedtime glipiZIDE (GLUCOTROL) 5 mg tablet TAKE 1 TABLET TWICE A DAY albuterol HFA (VENTOLIN HFA) 90 mcg/actuation inhaler Inhale 2 Puffs as instructed every 4 hours as needed for Wheezing/Shortness of Breath. SPIRIVA WITH HANDIHALER 18 mcg inhalation capsule INHALE CONTENTS OF ONE CAPSULE DAILY USING HANDIHALER DEVICE lactulose (CONSTULOSE) 10 gram/15 mL solution Take 30 mL by mouth twice daily. Prn constipation; hold for diarrhea FLOVENT DISKUS 250 mcg/actuation dsdv INHALE ONE PUFF BY MOUTH TWICE DAILY DIRECTED OMEGA-3 FATTY ACIDS (FISH OIL CONCENTRATE ORAL) Take by mouth once daily. desvenlafaxine ER (PRISTIQ) 50 mg 24 hr tablet Take 50 mg by mouth once daily. risperiDONE orally disintegrating (RISPERDAL M) 2 mg disintegrating tablet Take 2 mg by mouth once daily. clonazePAM (KLONOPIN) 1 mg tablet Take 0.5 mg Bid, 1 mg po at HS MULTIVITAMIN ORAL Take 1 tablet by mouth once daily. risperidone (RISPERDAL CONSTA) 50 mg/2 mL INTRAMUSC. injection Inject 2 mL intramuscularly every 2 weeks. azithromycin (ZITHROMAX) 250 mg tablet Take 1 tablet by mouth once daily for 3 days. (Patient not taking: Reported on 12/08/2017 ) albuterol (PROVENTIL) 5 mg/mL nebu Inhale 0.5 mL as instructed one time only for 1 dose. 1 DOSE NOW - BACK OFFICE. PLACE 0.5 ML PER DROPPER AND 2.5 ML OF NORMAL SALINE INTO RESERVOIR. Insulin Syringe-Needle U-100 (BD INSULIN SYRINGE) 1 mL 28 gauge x 1/2 syrg 10 Units once daily. Lancets lancets test BS twice daily 2 days a week- dx 250.00 - non-insulin blood sugar diagnostic (FREESTYLE LITE STRIPS) test strip test BS twice daily - dx - 250.00 -insulin Yes insulin needles, DISPOSABLE, (PEN NEEDLE) 31 X 5/16 ndle Use one needle per dose. Once per day. Blood-Glucose Meter (FREESTYLE LITE METER) monitoring kit Used once daily to check blood sugar. 250.00 No current facility-administered medications for this visit. 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 [facility], pt was on metformin for a while but taken off - pt never told if she had DM or not - Major depressive disorder, recurrent episode, unspecified - Nonspecific elevation of levels of transaminase or lactic acid dehydrogenase (LDH) - LIDA (obstructive sleep apnea) - Pneumonia - Schizophreniform disorder, chronic condition (HCC) - Simple endometrial hyperplasia without atypia mirena IUD 01/2011 PAST SURGICAL HISTORY Procedure Laterality Date - COLONOSCOPY W/BX 12/19/2016 Normal colonoscopy-10 year follow-up - PAST SURGICAL HISTORY OF 1982 corrective jaw surgery - REMOVAL GALLBLADDER 1998 open FAMILY HISTORY Problem Relation Age of Onset - Psychiatry Mother depression - lung cancer [OTHER] Paternal Grandfather - Psychiatry Brother schizophrenia - Diabetes Brother - Hypertension Brother - Psychiatry Sister deperssion Social History Marital status: Single Spouse name: Years of education: 14 Number of children: 0 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 REVIEW OF SYSTEMS All other reviewed and negative other than HPI. HEALTH MAINTENANCE: Reviewed health maintenance issues today and recommended the following in detail. MAMMOGRAM due on 01/03/2018 VITALS: BP 110/80 Pulse 88 Temp 36.2 ?C (97.1 ?F) (Tympanic) Resp 20 Wt 88.9 kg (196 lb) LMP 09/12/2017 BMI 37.03 kg/m2 Last 4 Encounter Wt Readings: Date: Wt: 01/06/2018 88.9 kg (196 lb) 11/27/2017 86.5 kg (190 lb 11.2 oz) 11/07/2017 86.6 kg (191 lb) 09/26/2017 91.6 kg (202 lb) PHYSICAL EXAMINATION: General appearance: Well appearing, alert, in no acute distress, well-hydrated, well nourished. Skin: Skin color, texture, turgor normal, no suspicious rashes or lesions Head: Normocephalic, no masses, lesions, tenderness or abnormalities Neck: Supple, no adenopathy; thyroid symmetric, normal size, no bruits Lungs: Lungs clear to auscultation. No wheezing, rhonchi, rales Heart: RRR without murmur, gallop, or rubs. No ectopy Abdomen: Normal abdominal exam, Abdomen soft, non-tender. Bowel sounds normal. No masses, organomegaly Extremities: No deformities, edema, skin discoloration, clubbing or cyanosis. Good capillary refill. Musculoskeletal: No joint swelling, deformity, or tenderness ASSESSMENT/PLAN: 1. Chronic constipation - ICD9: 564.00, ICD10: K59.09 (primary diagnosis) - milk of mag prn - .Red flags for re-assessment reviewed with patient in detail. - to gi if continues. - MAGNESIUM HYDROXIDE 400 MG/5 ML ORAL SUSPENSION 2. Visit for screening mammogram - ICD9: V76.12, ICD10: Z12.31 - FRANNY SCREENING 3. Schizophreniform disorder, chronic condition (HCC) - ICD9: 295.42, ICD10: F20.81 -continue close follow up with psych. Call if any worsening. 4. Vitamin D deficiency - ICD9: 268.9, ICD10: E55.9 - check labs - CBC + DIFF - IRON + TIBC - VITAMIN D 25 HYDROXY 5. Acute diastolic CHF (congestive heart failure) (HCC) - ICD9: 428.31, 428.0, ICD10: I50.31 - appears stable. 6. LIDA (obstructive sleep apnea) - ICD9: 327.23, ICD10: G47.33 - will follow 7. Constipation, unspecified constipation type - ICD9: 564.00, ICD10: K59.00 8. Type 2 diabetes mellitus with diabetic nephropathy, with long-term current use of insulin (HCC) - ICD9: 250.40, 583.81, V58.67, ICD10: E11.21, Z79.4 Controlled. - Continue current medications - HGB A1C 9. Water intoxication - ICD9: 276.69, ICD10: E87.79 - follow labs. - BASIC METABOLIC PNL 10. Chronic obstructive pulmonary disease with acute exacerbation (HCC) - ICD9: 491.21, ICD10: J44.1 - call if worsens. 11. Mixed hyperlipidemia - ICD9: 272.2, ICD10: E78.2 - to be determined upon return of lab results - Continue current medication. - HEPATIC FUNCTION PNL - CK CREATINE KINASE - LIPID PANEL BASIC 12. Restless legs - ICD9: 333.94, ICD10: G25.81 - check labs. - CBC + DIFF - IRON + TIBC Boris Jones MD CNOV Observed: 01/06/2018 Status: COMPLETED Source: [place] 3:40 PM [facility] REPOSITORY [facility] BRITTNEE LE ([id number]) 1965 F Date Time Provider Department 01/06/18 3:40 PM [facility] During your visit today, we recorded the following information about you: Temperature Pulse Respiration Blood pressure 97.1 degrees 88/minute 20/minute 110/80 Weight 88.9 kg Delfina Grant CANO 01/06/2018 4:00 PM Signed DM: Reports overall feeling well. Medication side effects: No. Home sugar checks: twice daily 110-170 Hypoglycemic spells: No. Watching diet: Yes. Unexpected weight loss: No. Polyuria, polydipsia: a little bit. Vision Changes: No. Foot lesions or numbness or pain: Yes feet feel hot. HYPERLIPIDEMIA: Patient is taking medications: Yes. Patient is watching diet: Yes. Patient denies myalgias: More restless leg symptoms Patient denies gi upset: nothing other than constipation at this time. Boris Jones MD 01/07/2018 9:23 AM Signed Patient presents with: 2 month follow up: question if should be taking asa daily Constipation: states been 8 days since had BM restless leg: mainly after going to bed at night. HPI: Patient presents today for office visit for follow up. GASTROENTEROLOGY: has chronic constipation. Takes multiple meds. Has nothing to use prn. No abd pain No blood in stools No nausea or vomiting. This is not a change in her patterns. RLS:having some RLS symptoms. Has been there for some time. Would be hesitant to add more meds. Discussed using tylenol at hx. DM:sugars stable. No hypoglycemic spells. HLD:no chest pain or shortness of breath. No new edema. PSYCH:emotionally is stable. No new changes. Continues to see psych. CHF: no increased shortness of breath or edema. Some weight gain but could be related to above gi issues. MEDICATIONS: Current Outpatient Prescriptions: metFORMIN (GLUCOPHAGE) 500 mg tablet TAKE 2 TABLETS BY MOUTH TWICE DAILY WITH MEALS. . STOOL SOFTENER 100 mg capsule TAKE 1 CAPSULE TWICE A DAY pravastatin (PRAVACHOL) 20 mg tablet TAKE 1 TABLET BY MOUTH ONCE DAILY. furosemide (LASIX) 20 mg tablet Take 1 tablet by mouth once daily. LANTUS 100 unit/mL injection Give 22 units subq daily at 4 PM or as directed potassium chloride ER (K-DUR, KLOR-CON) 20 mEq tablet TAKE 1 TABLET BY MOUTH DAILY wheat dextrin (BENEFIBER SUGAR FREE, DEXTRIN,) 3 gram/3.8 gram powd Stir 2 teaspoonfuls into 4-8 oz of beverage or soft food daily Cholecalciferol, Vitamin D3, 1,000 unit cap Take 1 capsule by mouth once daily. cloZAPine (CLOZARIL) 100 mg tablet take one tablet at noon, 2 tablets at 3 PM and 3 tablets at Bedtime glipiZIDE (GLUCOTROL) 5 mg tablet TAKE 1 TABLET TWICE A DAY albuterol HFA (VENTOLIN HFA) 90 mcg/actuation inhaler Inhale 2 Puffs as instructed every 4 hours as needed for Wheezing/Shortness of Breath. SPIRIVA WITH HANDIHALER 18 mcg inhalation capsule INHALE CONTENTS OF ONE CAPSULE DAILY USING HANDIHALER DEVICE lactulose (CONSTULOSE) 10 gram/15 mL solution Take 30 mL by mouth twice daily. Prn constipation; hold for diarrhea FLOVENT DISKUS 250 mcg/actuation dsdv INHALE ONE PUFF BY MOUTH TWICE DAILY DIRECTED OMEGA-3 FATTY ACIDS (FISH OIL CONCENTRATE ORAL) Take by mouth once daily. desvenlafaxine ER (PRISTIQ) 50 mg 24 hr tablet Take 50 mg by mouth once daily. risperiDONE orally disintegrating (RISPERDAL M) 2 mg disintegrating tablet Take 2 mg by mouth once daily. clonazePAM (KLONOPIN) 1 mg tablet Take 0.5 mg Bid, 1 mg po at HS MULTIVITAMIN ORAL Take 1 tablet by mouth once daily. risperidone (RISPERDAL CONSTA) 50 mg/2 mL INTRAMUSC. injection Inject 2 mL intramuscularly every 2 weeks. azithromycin (ZITHROMAX) 250 mg tablet Take 1 tablet by mouth once daily for 3 days. (Patient not taking: Reported on 12/08/2017 ) albuterol (PROVENTIL) 5 mg/mL nebu Inhale 0.5 mL as instructed one time only for 1 dose. 1 DOSE NOW - BACK OFFICE. PLACE 0.5 ML PER DROPPER AND 2.5 ML OF NORMAL SALINE INTO RESERVOIR. Insulin Syringe-Needle U-100 (BD INSULIN SYRINGE) 1 mL 28 gauge x 1/2ANDquot; syrg 10 Units once daily. Lancets lancets test BS twice daily 2 days a week- dx 250.00 - non-insulin blood sugar diagnostic (FREESTYLE LITE STRIPS) test strip test BS twice daily - dx - 250.00 -insulin Yes insulin needles, DISPOSABLE, (PEN NEEDLE) 31 X 5/16 ANDquot; ndle Use one needle per dose. Once per day. Blood-Glucose Meter (FREESTYLE LITE METER) monitoring kit Used once daily to check blood sugar. 250.00 No current facility-administered medications for this visit. 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 [facility], pt was on metformin for a while but taken off - pt never told if she had DM or not - Major depressive disorder, recurrent episode, unspecified - Nonspecific elevation of levels of transaminase or lactic acid dehydrogenase (LDH) - LIDA (obstructive sleep apnea) - Pneumonia - Schizophreniform disorder, chronic condition (HCC) - Simple endometrial hyperplasia without atypia mirena IUD 01/2011 PAST SURGICAL HISTORY Procedure Laterality Date - COLONOSCOPY W/BX 12/19/2016 Normal colonoscopy-10 year follow-up - PAST SURGICAL HISTORY OF 1982 corrective jaw surgery - REMOVAL GALLBLADDER 1998 open FAMILY HISTORY Problem Relation Age of Onset - Psychiatry Mother depression - lung cancer [OTHER] Paternal Grandfather - Psychiatry Brother schizophrenia - Diabetes Brother - Hypertension Brother - Psychiatry Sister deperssion Social History Marital status: Single Spouse name: Years of education: 14 Number of children: 0 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 REVIEW OF SYSTEMS All other reviewed and negative other than HPI. HEALTH MAINTENANCE: Reviewed health maintenance issues today and recommended the following in detail. MAMMOGRAM due on 01/03/2018 VITALS: BP 110/80 Pulse 88 Temp 36.2 ?C (97.1 ?F) (Tympanic) Resp 20 Wt 88.9 kg (196 lb) LMP 09/12/2017 BMI 37.03 kg/m2 Last 4 Encounter Wt Readings: Date: Wt: 01/06/2018 88.9 kg (196 lb) 11/27/2017 86.5 kg (190 lb 11.2 oz) 11/07/2017 86.6 kg (191 lb) 09/26/2017 91.6 kg (202 lb) PHYSICAL EXAMINATION: General appearance: Well appearing, alert, in no acute distress, well-hydrated, well nourished. Skin: Skin color, texture, turgor normal, no suspicious rashes or lesions Head: Normocephalic, no masses, lesions, tenderness or abnormalities Neck: Supple, no adenopathy; thyroid symmetric, normal size, no bruits Lungs: Lungs clear to auscultation. No wheezing, rhonchi, rales Heart: RRR without murmur, gallop, or rubs. No ectopy Abdomen: Normal abdominal exam, Abdomen soft, non-tender. Bowel sounds normal. No masses, organomegaly Extremities: No deformities, edema, skin discoloration, clubbing or cyanosis. Good capillary refill. Musculoskeletal: No joint swelling, deformity, or tenderness ASSESSMENT/PLAN: 1. Chronic constipation - ICD9: 564.00, ICD10: K59.09 (primary diagnosis) - milk of mag prn - .Red flags for re-assessment reviewed with patient in detail. - to gi if continues. - MAGNESIUM HYDROXIDE 400 MG/5 ML ORAL SUSPENSION 2. Visit for screening mammogram - ICD9: V76.12, ICD10: Z12.31 - FRANNY SCREENING 3. Schizophreniform disorder, chronic condition (HCC) - ICD9: 295.42, ICD10: F20.81 -continue close follow up with psych. Call if any worsening. 4. Vitamin D deficiency - ICD9: 268.9, ICD10: E55.9 - check labs - CBC + DIFF - IRON + TIBC - VITAMIN D 25 HYDROXY 5. Acute diastolic CHF (congestive heart failure) ([facility]) - ICD9: 428.31, 428.0, ICD10: I50.31 - appears stable. 6. LIDA (obstructive sleep apnea) - ICD9: 327.23, ICD10: G47.33 - will follow 7. Constipation, unspecified constipation type - ICD9: 564.00, ICD10: K59.00 8. Type 2 diabetes mellitus with diabetic nephropathy, with long-term current use of insulin (HCC) - ICD9: 250.40, 583.81, V58.67, ICD10: E11.21, Z79.4 Controlled. - Continue current medications - HGB A1C 9. Water intoxication - ICD9: 276.69, ICD10: E87.79 - follow labs. - BASIC METABOLIC PNL 10. Chronic obstructive pulmonary disease with acute exacerbation (HCC) - ICD9: 491.21, ICD10: J44.1 - call if worsens. 11. Mixed hyperlipidemia - ICD9: 272.2, ICD10: E78.2 - to be determined upon return of lab results - Continue current medication. - HEPATIC FUNCTION PNL - CK CREATINE KINASE - LIPID PANEL BASIC 12. Restless legs - ICD9: 333.94, ICD10: G25.81 - check labs. - CBC + DIFF - IRON + TIBC Boris Jones MD Referring Provider: BORIS JONES [[id number]] Allergies As of Date: 01/06/2018 (No Known Allergies) Date Reviewed: 01/06/2018 Reviewed by: Delfina Camacho LPN - Fully Assessed Reason for Visit: 2 month follow up [Other] Cmt: question if should be taking asa daily Constipation [25] Cmt: states been 8 days since had BM restless leg [Other] Cmt: mainly after going to bed at night. Reason For Visit History Recorded Primary Visit Diagnosis:Chronic constipation [K59.09] Other Visit Diagnoses:Visit for screening mammogram [Z12.31] Schizophreniform disorder, chronic condition ([facility]) [F20.81] Vitamin D deficiency [E55.9] Acute diastolic CHF (congestive heart failure) ([facility]) [I50.31] LIDA (obstructive sleep apnea) [G47.33] Constipation, unspecified constipation type [K59.00] Type 2 diabetes mellitus with diabetic nephropathy, with long-term current use of insulin ([facility]) [E11.21, Z79.4] Water intoxication [E87.79] Chronic obstructive pulmonary disease with acute exacerbation ([facility]) [J44.1] Mixed hyperlipidemia [E78.2] Restless legs [G25.81] Order(s):FRANNY SCREENING [[id number]] Order #: [id number] FUTURE magnesium hydroxide (MILK OF MAGNESIA) 400 mg/5 mL suspensionTake 15 mL by mouth once daily as needed for Constipation (for no bowel movement after three days).Disp: 60 mLRfl: 5 aspirin, enteric coated (ASPIRIN, ENTERIC COATED) 325 mg EC tabletTake 1 tablet by mouth once daily. Take with food.Disp: 30 tabletRfl: 11 CBC + DIFF [SQCBCDIF] Order #: [id number] FUTURE IRON + TIBC [SQIRON] Order #: [id number] FUTURE HGB A1C [JWFNW5B] Order #: [id number] FUTURE BASIC METABOLIC PNL [SQBMP] Order #: [id number] FUTURE acetaminophen (TYLENOL EXTRA STRENGTH) 500 mg tabletTake 1 tablet by mouth daily at bedtime.Disp: 30 tabletRfl: 11 HEPATIC FUNCTION PNL [SQHFP] Order #: [id number] FUTURE CK CREATINE KINASE [SQCK] Order #: [id number] FUTURE LIPID PANEL BASIC [SQLIPB] Order #: [id number] FUTURE VITAMIN D 25 HYDROXY [SQVITD] Order #: [id number] FUTURE Prescriptions as of 01/06/2018 Sig: METFORMIN 500 MG TABLET TAKE 2 TABLETS BY MOUTH TWICE* STOOL SOFTENER 100 MG CAPSULE TAKE 1 CAPSULE TWICE A DAY PRAVASTATIN 20 MG TABLET TAKE 1 TABLET BY MOUTH ONCE D* FUROSEMIDE 20 MG TABLET Take 1 tablet by mouth once d* LANTUS U-100 INSULIN 100 UNIT* Give 22 units subq daily at 4* POTASSIUM CHLORIDE ER 20 MEQ * TAKE 1 TABLET BY MOUTH DAILY WHEAT DEXTRIN 3 GRAM/3.8 GRAM* Stir 2 teaspoonfuls into 4-8 * CHOLECALCIFEROL (VITAMIN D3) * Take 1 capsule by mouth once * CLOZAPINE 100 MG TABLET take one tablet at noon, 2 ta* GLIPIZIDE 5 MG TABLET TAKE 1 TABLET TWICE A DAY ALBUTEROL SULFATE HFA 90 MCG/* Inhale 2 Puffs as instructed * LACTULOSE 10 GRAM/15 ML ORAL * Take 30 mL by mouth twice mainor* FLOVENT DISKUS 250 MCG/ACTUAT* INHALE ONE PUFF BY MOUTH TWIC* FISH OIL CONCENTRATE ORAL Take by mouth once daily. DESVENLAFAXINE SUCCINATE ER 5* Take 50 mg by mouth once ziggy* RISPERIDONE 2 MG DISINTEGRATI* Take 2 mg by mouth once daily. CLONAZEPAM 1 MG TABLET Take 0.5 mg Bid, 1 mg po at HS * RISPERIDONE MICROSPHERES 50 M* Inject 2 mL intramuscularly e* MAGNESIUM HYDROXIDE 400 MG/5 * Take 15 mL by mouth once ziggy* ASPIRIN 325 MG TABLET,DELAYED* Take 1 tablet by mouth once d* ACETAMINOPHEN 500 MG TABLET Take 1 tablet by mouth daily * ALBUTEROL SULFATE CONCENTRATE* Inhale 0.5 mL as instructed o* INSULIN SYRINGE-NEEDLE U-100 * 10 Units once daily. LANCETS test BS twice daily 2 days a * BLOOD SUGAR DIAGNOSTIC STRIPS test BS twice daily - dx - 25* PEN NEEDLE, DIABETIC 31 GAUGE* Use one needle per dose. Once* BLOOD-GLUCOSE METER KIT Used once daily to check bloo* Problem List As Of Date 01/06/2018 Noted Resolved Schizophreniform disorder, chronic condition (H* Priority: Mild More... Other abnormal glucose [R73.09] Priority: A More... DM w/o Complication Type II [E11.9] INVALID FOR*02/22/2014 Priority: Moderate Gastritis [K29.70] INVALID FOR* Routine general medical examination at a health*INVALID FOR*11/26/2011 Class: Chronic More... Routine gynecological examination [Z01.419] INVALID FOR*11/26/2011 Class: Chronic More... Vitamin D deficiency [E55.9] INVALID FOR* Priority: A More... Liver Function Test Abnormality [R94.5] INVALID FOR* More... 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 Encounter for screening for malignant neoplasm *INVALID FOR* Postmenopausal bleeding [N95.0] INVALID FOR* More... Acute diastolic CHF (congestive heart failure) *INVALID FOR* More... Visit Notes: >> Delfina Blandon Jan 06, 2018 3:56 PM Status: Signed DM: Reports overall feeling well. Medication side effects: No. Home sugar checks: twice daily 110-170 Hypoglycemic spells: No. Watching diet: Yes. Unexpected weight loss: No. Polyuria, polydipsia: a little bit. Vision Changes: No. Foot lesions or numbness or pain: Yes feet feel hot. HYPERLIPIDEMIA: Patient is taking medications: Yes. Patient is watching diet: Yes. Patient denies myalgias: More restless leg symptoms Patient denies gi upset: nothing other than constipation at this time. Prescriptions ordered this encounter Disp Refills Start End MAGNESIUM HYDROXIDE 400 MG/5 ML ORAL* 60 mL 5 01/06/2018 Class: Print RX Route: ORAL Sig: Take 15 mL by mouth once daily as needed for Constipation (for no bowel movement after three days). ASPIRIN 325 MG TABLET,DELAYED RELEASE 30 t* 11 01/06/2018 01/06/2019 Class: Print RX Route: ORAL Sig: Take 1 tablet by mouth once daily. Take with food. ACETAMINOPHEN 500 MG TABLET 30 t* 11 01/06/2018 01/06/2019 Class: Print RX Route: ORAL Sig: Take 1 tablet by mouth daily at bedtime. Medications Discontinued During This Encounter FIBER, PSYLLIUM HUSK, ORAL 01/06/2018 Class: Historical Med Route: ORAL Sig: Take by mouth once daily. Disc: Reason for discontinue is not on file. SPIRIVA WITH HANDIHALER 18 mcg inhal* 30 c* 5 10/02/2017 01/06/2018 Cmt: Maximum Refills Reached Sig: INHALE CONTENTS OF ONE CAPSULE DAILY USING HANDIHALER DEVICE Disc: Reason for discontinue is not on file. MULTIVITAMIN ORAL 01/06/2018 Class: Med Update Route: ORAL Sig: Take 1 tablet by mouth once daily. Disc: Reason for discontinue is not on file. azithromycin (ZITHROMAX) 250 mg tabl* 3 ta* 0 10/17/2017 01/06/2018 Class: Med Update Route: ORAL Sig: Take 1 tablet by mouth once daily for 3 days. Patient not taking: Reported on 12/08/2017 Disc: Reason for discontinue is not on file. Disposition: Return in about 3 months (around 04/08/2018). Follow-up and Disposition History Recorded Encounter Status:Closed by BORIS JONES MD on 01/07/18 WILDER Observed: 01/06/2018 Status: COMPLETED Source: [place] 12:00 AM [facility] REPOSITORY Patient Outreach (FAMPWS) BRITTNEE LE ([id number]) 1965 F Date Time Provider Department 01/06/18 ASIA BURRELL (RN) FAMPWS During your visit today, we recorded the following information about you: Asia Burrell RN 01/06/2018 4:36 PM Signed PRIMARY CARE COORDINATION IN OFFICE VISIT WITH PCP Patient has been identified by name and date of . 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 [4715] Prescriptions as of 01/06/2018 Sig: METFORMIN 500 MG TABLET TAKE 2 TABLETS BY MOUTH TWICE* STOOL SOFTENER 100 MG CAPSULE TAKE 1 CAPSULE TWICE A DAY PRAVASTATIN 20 MG TABLET TAKE 1 TABLET BY MOUTH ONCE D* MAGNESIUM HYDROXIDE 400 MG/5 * Take 15 mL by mouth once ziggy* ASPIRIN 325 MG TABLET,DELAYED* Take 1 tablet by mouth once d* ACETAMINOPHEN 500 MG TABLET Take 1 tablet by mouth daily * FUROSEMIDE 20 MG TABLET Take 1 tablet by mouth once d* LANTUS U-100 INSULIN 100 UNIT* Give 22 units subq daily at 4* POTASSIUM CHLORIDE ER 20 MEQ * TAKE 1 TABLET BY MOUTH DAILY WHEAT DEXTRIN 3 GRAM/3.8 GRAM* Stir 2 teaspoonfuls into 4-8 * CHOLECALCIFEROL (VITAMIN D3) * Take 1 capsule by mouth once * CLOZAPINE 100 MG TABLET take one tablet at noon, 2 ta* GLIPIZIDE 5 MG TABLET TAKE 1 TABLET TWICE A DAY ALBUTEROL SULFATE CONCENTRATE* Inhale 0.5 mL as instructed o* ALBUTEROL SULFATE HFA 90 MCG/* Inhale 2 Puffs as instructed * LACTULOSE 10 GRAM/15 ML ORAL * Take 30 mL by mouth twice mainor* INSULIN SYRINGE-NEEDLE U-100 * 10 Units once daily. FLOVENT DISKUS 250 MCG/ACTUAT* INHALE ONE PUFF BY MOUTH TWIC* FISH OIL CONCENTRATE ORAL Take by mouth once daily. DESVENLAFAXINE SUCCINATE ER 5* Take 50 mg by mouth once ziggy* LANCETS test BS twice daily 2 days a * RISPERIDONE 2 MG DISINTEGRATI* Take 2 mg by mouth once daily. BLOOD SUGAR DIAGNOSTIC STRIPS test BS twice daily - dx - 25* CLONAZEPAM 1 MG TABLET Take 0.5 mg Bid, 1 mg po at HS PEN NEEDLE, DIABETIC 31 GAUGE* Use one needle per dose. Once* BLOOD-GLUCOSE METER KIT Used once daily to check bloo* * RISPERIDONE MICROSPHERES 50 M* Inject 2 mL intramuscularly e* Problem List As Of Date 01/06/2018 Noted Resolved Schizophreniform disorder, chronic condition (H* Priority: Mild More... Other abnormal glucose [R73.09] Priority: A More... DM w/o Complication Type II [E11.9] INVALID FOR*02/22/2014 Priority: Moderate Gastritis [K29.70] INVALID FOR* Routine general medical examination at a health*INVALID FOR*11/26/2011 Class: Chronic More... Routine gynecological examination [Z01.419] INVALID FOR*11/26/2011 Class: Chronic More... Vitamin D deficiency [E55.9] INVALID FOR* Priority: A More... Liver Function Test Abnormality [R94.5] INVALID FOR* More... 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 Encounter for screening for malignant neoplasm *INVALID FOR* Postmenopausal bleeding [N95.0] INVALID FOR* More... Acute diastolic CHF (congestive heart failure) *INVALID FOR* More... Encounter Status:Closed by ASIA BURRELL on 01/06/18 CBC W/DIFF, AUTOMATED Collected: 12/25/2017 Status: F Source: [place] 8:40 AM [facility] REPOSITORY TYPE CODE TESTS RESULT OUT OF RANGE REFERENCE UNITS LAB L100.1000 4.4-11.0 K/mm3 Normal WBC 9.5 LAB L100.1200 4.2-5.4 M/mm3 Normal RBC 4.51 LAB L100.1300 12.0-15.0 g/dl Normal HGB 13.1 LAB L100.1400 37-47 % Normal HCT 40.4 LAB L100.1500 81-99 fL Normal MCV 89.6 LAB L100.1600 27.0-32.0 pg Normal MCH 29.0 LAB L100.1700 32-36 g/gl Normal MCHC 32.4 LAB L100.1810 11.6-14.6 % High RDW CV 14.9 LAB L100.1820 35.1-43.9 fl High RDW SD 48.9 LAB L100.1900 150-450 K/mm3 Normal PLT 214 LAB L100.2000 6.2-12.0 fl Normal MPV 10.2 LAB L100.2100 47-70 % High NEUT% 70.9 LAB L100.2200 19-41 % Normal LY% 21.5 LAB L100.2300 0-10 % Normal MONO% 7.2 LAB L100.2400 0-5 % Normal EO% 0.0 LAB L100.2500 0-1 % Normal BASO% 0.3 LAB L100.2550 0.0-0.9 % Normal IM GRAN % 0.100 Result Comment: IG% - Immature Granulocytes (promyelocytes, myelocytes and metamyelocytes) > 1% indicates that a LEFT SHIFT is Present. LAB L100.2620 2.0-7.7 X10 3/uL Normal Absolute Neut 6.7 LAB L100.2720 0.83-4.51 X10 3/ul Normal Absolute Lymph 2.04 Performed By: #### L100.0100 #### [facility] [address] [place], [place], [address] PROGRESS Observed: 12/18/2017 Status: COMPLETED Source: [place] 4:46 PM [facility] REPOSITORY HNO ID: [id number] Author: Delfina Camacho LPN Service: (none) Author Type: (none) Type: Progress Notes Filed: 12/18/2017 4:47 PM Note Text: Fransisca aware of same. PROGRESS Observed: 12/18/2017 Status: COMPLETED Source: [place] 4:38 PM [facility] REPOSITORY HNO ID: [id number] Author: Boris Jones Service: (none) Author Type: Physician Type: Progress Notes Filed: 12/18/2017 4:47 PM Note Text: Not bad. Stay on current meds PROGRESS Observed: 12/18/2017 Status: COMPLETED Source: [place] 3:28 PM [facility] REPOSITORY HNO ID: [id number] Author: Asia PiperRn) Indra Service: (none) Author Type: Registered Nurse Type: Progress Notes Filed: 12/18/2017 3:34 PM Note Text: PRIMARY CARE COORDINATION FOLLOW-UP NOTE Provider Action/FYI Please note BS Eye infection cleared with eye gtts No noted SOB or cough Patient identified by name and date of . YES Spoke to group shiraz Regan CG Summary: CG states she hasn't noticed any SOB or cough. Hasn't checked LE for edema States eye infection cleared up with eye drops CG reports glucose readings as noted. DATE 12/18 12/17 12/16 12/15 12/14 12/13 Fasting 142 142 159 151 152 141 Before Supper(4PM) 77 PC 94 139 177 178 122 Any low blood sugars during this period of reporting No, had one BS 77, had pt eat and after meal 94 Patient's diabetes medications as follows: LANTUS 100 unit/mL Give 22 units subq daily at 4 PM or as directed metFORMIN (GLUCOPHAGE) 500 mg TAKE 2 TABLETS BY MOUTH TWICE DAILY WITH MEALS. glipiZIDE (GLUCOTROL) 5 mg TAKE 1 TABLET TWICE A DAY Savings Teller plan for next outreach: Will follow up one month Signature Asia Burrell RN December 18, 2017 [facility] Observed: 12/18/2017 Status: COMPLETED Source: [place] 12:00 AM [facility] REPOSITORY Patient Outreach (FAMPWS) BRITTNEE LE ([id number]) 1965 F Date Time Provider Department 12/18/17 ASIA BURRELL (RN) FAMPWS During your visit today, we recorded the following information about you: Asia Burrell RN 12/18/2017 3:34 PM Signed PRIMARY CARE COORDINATION FOLLOW-UP NOTE Provider Action/FYI Please note BS Eye infection cleared with eye gtts No noted SOB or cough Patient identified by name and date of . YES Spoke to group shiraz Regan CG Summary: CG states she hasn't noticed any SOB or cough. Hasn't checked LE for edema States eye infection cleared up with eye drops CG reports glucose readings as noted. DATE 12/18/3 Fasting 142 142 159 151 152 141 Before Supper(4PM) 77 PC 94 139 177 178 122 Any low blood sugars during this period of reporting No, had one BS 77, had pt eat and after meal 94 Patient's diabetes medications as follows: LANTUS 100 unit/mL Give 22 units subq daily at 4 PM or as directed metFORMIN (GLUCOPHAGE) 500 mg TAKE 2 TABLETS BY MOUTH TWICE DAILY WITH MEALS. glipiZIDE (GLUCOTROL) 5 mg TAKE 1 TABLET TWICE A DAY Savings Teller plan for next outreach: Will follow up one month Signature Asia Burrell RN December 18, 2017 Boris Jones MD 12/18/2017 4:47 PM Signed Not bad. Stay on current meds Delfina Camacho LPN 12/18/2017 4:47 PM Signed Fransisca aware of same. 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 Chronic Care [6282] Prescriptions as of 12/18/2017 Sig: FUROSEMIDE 20 MG TABLET Take 1 tablet by mouth once d* LANTUS U-100 INSULIN 100 UNIT* Give 22 units subq daily at 4* POTASSIUM CHLORIDE ER 20 MEQ * TAKE 1 TABLET BY MOUTH DAILY WHEAT DEXTRIN 3 GRAM/3.8 GRAM* Stir 2 teaspoonfuls into 4-8 * CHOLECALCIFEROL (VITAMIN D3) * Take 1 capsule by mouth once * CLOZAPINE 100 MG TABLET take one tablet at noon, 2 ta* AZITHROMYCIN 250 MG TABLET Take 1 tablet by mouth once d* Patient not taking: Reported on 12/08/2017 GLIPIZIDE 5 MG TABLET TAKE 1 TABLET TWICE A DAY ALBUTEROL SULFATE CONCENTRATE* Inhale 0.5 mL as instructed o* ALBUTEROL SULFATE HFA 90 MCG/* Inhale 2 Puffs as instructed * SPIRIVA WITH HANDIHALER 18 MC* INHALE CONTENTS OF ONE CAPSUL* METFORMIN 500 MG TABLET TAKE 2 TABLETS BY MOUTH TWICE* STOOL SOFTENER 100 MG CAPSULE TAKE 1 CAPSULE TWICE A DAY LACTULOSE 10 GRAM/15 ML ORAL * Take 30 mL by mouth twice mainor* INSULIN SYRINGE-NEEDLE U-100 * 10 Units once daily. PRAVASTATIN 20 MG TABLET TAKE 1 TABLET BY MOUTH ONCE D* FLOVENT DISKUS 250 MCG/ACTUAT* INHALE ONE PUFF BY MOUTH TWIC* FIBER (PSYLLIUM HUSK) ORAL Take by mouth once daily. FISH OIL CONCENTRATE ORAL Take by mouth once daily. DESVENLAFAXINE SUCCINATE ER 5* Take 50 mg by mouth once ziggy* LANCETS test BS twice daily 2 days a * RISPERIDONE 2 MG DISINTEGRATI* Take 2 mg by mouth once daily. BLOOD SUGAR DIAGNOSTIC STRIPS test BS twice daily - dx - 25* CLONAZEPAM 1 MG TABLET Take 0.5 mg Bid, 1 mg po at HS PEN NEEDLE, DIABETIC 31 GAUGE* Use one needle per dose. Once* BLOOD-GLUCOSE METER KIT Used once daily to check bloo* * MULTIVITAMIN ORAL Take 1 tablet by mouth once d* * RISPERIDONE MICROSPHERES 50 M* Inject 2 mL intramuscularly e* Problem List As Of Date 12/18/2017 Noted Resolved Schizophreniform disorder, chronic condition (H* Priority: Mild More... Other abnormal glucose [R73.09] Priority: A More... DM w/o Complication Type II [E11.9] INVALID FOR*02/22/2014 Priority: Moderate Gastritis [K29.70] INVALID FOR* Routine general medical examination at a [facility]*INVALID FOR*11/26/2011 Class: Chronic More... Routine gynecological examination [Z01.419] INVALID FOR*11/26/2011 Class: Chronic More... Vitamin D deficiency [E55.9] INVALID FOR* Priority: A More... Liver Function Test Abnormality [R94.5] INVALID FOR* More... 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 Encounter for screening for malignant neoplasm *INVALID FOR* Postmenopausal bleeding [N95.0] INVALID FOR* More... Acute diastolic CHF (congestive heart failure) *INVALID FOR* More... Encounter Status:Closed by DELFINA CAMACHO LPN on 3/8/18 PROGRESS Observed: 12/08/2017 Status: COMPLETED Source: [place] 12:38 PM [facility] HNO ID: [id number] Author: Boris Jones Service: (none) Author Type: Physician Type: Progress Notes Filed: 12/08/2017 12:43 PM Note Text: Patient presents with: Conjunctivitis HPI: Patient presents today for office visit for an acute visit. Nursing Notes: Maria Ajacqui Saldivar RACHAEL 12/08/2017 12:16 PM Signed Patient complains of: left eye. Duration: couple of days Associated Symptoms: redness, itching Has been there for two days. Has mattering. No loss of vision. Feels warm. No cough. No congestion. No foreign body sensation. MEDICATIONS: Current Outpatient Prescriptions: furosemide (LASIX) 20 mg tablet Take 1 tablet by mouth once daily. LANTUS 100 unit/mL injection Give 22 units subq daily at 4 PM or as directed potassium chloride ER (K-DUR, KLOR-CON) 20 mEq tablet TAKE 1 TABLET BY MOUTH DAILY wheat dextrin (BENEFIBER SUGAR FREE, DEXTRIN,) 3 gram/3.8 gram powd Stir 2 teaspoonfuls into 4-8 oz of beverage or soft food daily Cholecalciferol, Vitamin D3, 1,000 unit cap Take 1 capsule by mouth once daily. cloZAPine (CLOZARIL) 100 mg tablet take one tablet at noon, 2 tablets at 3 PM and 3 tablets at Bedtime glipiZIDE (GLUCOTROL) 5 mg tablet TAKE 1 TABLET TWICE A DAY albuterol HFA (VENTOLIN HFA) 90 mcg/actuation inhaler Inhale 2 Puffs as instructed every 4 hours as needed for Wheezing/Shortness of Breath. SPIRIVA WITH HANDIHALER 18 mcg inhalation capsule INHALE CONTENTS OF ONE CAPSULE DAILY USING HANDIHALER DEVICE metFORMIN (GLUCOPHAGE) 500 mg tablet TAKE 2 TABLETS BY MOUTH TWICE DAILY WITH MEALS. . STOOL SOFTENER 100 mg capsule TAKE 1 CAPSULE TWICE A DAY lactulose (CONSTULOSE) 10 gram/15 mL solution Take 30 mL by mouth twice daily. Prn constipation; hold for diarrhea pravastatin (PRAVACHOL) 20 mg tablet TAKE 1 TABLET BY MOUTH ONCE DAILY. FLOVENT DISKUS 250 mcg/actuation dsdv INHALE ONE PUFF BY MOUTH TWICE DAILY DIRECTED OMEGA-3 FATTY ACIDS (FISH OIL CONCENTRATE ORAL) Take by mouth once daily. desvenlafaxine ER (PRISTIQ) 50 mg 24 hr tablet Take 50 mg by mouth once daily. risperiDONE orally disintegrating (RISPERDAL M) 2 mg disintegrating tablet Take 2 mg by mouth once daily. clonazePAM (KLONOPIN) 1 mg tablet Take 0.5 mg Bid, 1 mg po at HS risperidone (RISPERDAL CONSTA) 50 mg/2 mL INTRAMUSC. injection Inject 2 mL intramuscularly every 2 weeks. azithromycin (ZITHROMAX) 250 mg tablet Take 1 tablet by mouth once daily for 3 days. (Patient not taking: Reported on 12/08/2017 ) albuterol (PROVENTIL) 5 mg/mL nebu Inhale 0.5 mL as instructed one time only for 1 dose. 1 DOSE NOW - BACK OFFICE. PLACE 0.5 ML PER DROPPER AND 2.5 ML OF NORMAL SALINE INTO RESERVOIR. Insulin Syringe-Needle U-100 (BD INSULIN SYRINGE) 1 mL 28 gauge x 1/2 syrg 10 Units once daily. FIBER, PSYLLIUM HUSK, ORAL Take by mouth once daily. Lancets lancets test BS twice daily 2 days a week- dx 250.00 - non-insulin blood sugar diagnostic (FREESTYLE LITE STRIPS) test strip test BS twice daily - dx - 250.00 -insulin Yes insulin needles, DISPOSABLE, (PEN NEEDLE) 31 X 5/16 ndle Use one needle per dose. Once per day. Blood-Glucose Meter (FREESTYLE LITE METER) monitoring kit Used once daily to check blood sugar. 250.00 MULTIVITAMIN ORAL Take 1 tablet by mouth once daily. No current facility-administered medications for this visit. 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 [facility], pt was on metformin for a while but taken off - pt never told if she had DM or not - Major depressive disorder, recurrent episode, unspecified - Nonspecific elevation of levels of transaminase or lactic acid dehydrogenase (LDH) - LIDA (obstructive sleep apnea) - Pneumonia - Schizophreniform disorder, chronic condition (HCC) - Simple endometrial hyperplasia without atypia mirena IUD 01/2011 PAST SURGICAL HISTORY Procedure Laterality Date - COLONOSCOPY W/BX 12/19/2016 Normal colonoscopy-10 year follow-up - PAST SURGICAL HISTORY OF 1982 corrective jaw surgery - REMOVAL GALLBLADDER 1998 open FAMILY HISTORY Problem Relation Age of Onset - Psychiatry Mother depression - lung cancer [OTHER] Paternal Grandfather - Psychiatry Brother schizophrenia - Diabetes Brother - Hypertension Brother - Psychiatry Sister deperssion Social History Marital status: Single Spouse name: Years of education: 14 Number of children: 0 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 REVIEW OF SYSTEMS All other reviewed and negative other than HPI. HEALTH MAINTENANCE: Reviewed health maintenance issues today and recommended the following in detail. HPV EVERY 5 YEARS due on 10/03/2014 MAMMOGRAM due on 01/03/2018 VITALS: BP 92/62 Pulse 60 Temp (!) 35.7 ?C (96.3 ?F) (Tympanic) Resp 14 LMP 09/12/2017 Last 4 Encounter Wt Readings: Date: Wt: 11/27/2017 86.5 kg (190 lb 11.2 oz) 11/07/2017 86.6 kg (191 lb) 09/26/2017 91.6 kg (202 lb) 09/11/2017 92.1 kg (203 lb) PHYSICAL EXAMINATION: General appearance: Well appearing, alert, in no acute distress, well-hydrated, well nourished. Skin: Skin color, texture, turgor normal, no suspicious rashes or lesions Head: Normocephalic, no masses, lesions, tenderness or abnormalities Eyes: left eye shows some mattering. Perrla. Conjunctiva is red. Ears: External ears normal, canals clear Nose/Sinuses: Nares normal, septum midline, mucosa normal, no drainage or sinus tenderness ASSESSMENT/PLAN: 1. Bacterial conjunctivitis - ICD9: 372.39, 041.9, ICD10: H10.9 - see medication orders - course and contagiousness issues discussed, including hand washing. - Instructed to call if high fever, development of periorbital redness or swelling, eye pain, visual changes, concerns or if symptoms persist. - SULFACETAMIDE SODIUM 10 % EYE DROPS Boris Jones MD CNPN Observed: 11/28/2017 Status: COMPLETED Source: [place] 12:00 AM [facility] REPOSITORY Telephone (AGCARDWST) BRITTNEE LE ([id number]) 1965 F Date Time Provider Department 11/28/17 RUBEN AMAYA AGCARDWST During your visit today, we recorded the following information about you: Reilly Keene RN, RN 11/28/2017 8:40 AM Signed Various blood work from [facility] (11-27-17) in folder for review, thank you. Ruben Amaya MD 11/28/2017 8:56 AM Signed Blood tests are all normal. Let's try decreasing Lasix to 20 milligrams daily. Repeat basic profile in one month. Call if increased shortness of breath or edema. MD Reilly Monzon RN, RN 11/28/2017 4:27 PM Signed Left detailed msg on VM with hand tier and asked her to call back with any questions. Please review med update and order, thank you. Reilly Keene RN, RN 12/01/2017 11:54 AM Signed [facility] worker reports that they will need new prescription, patient's meds come prepackaged and they are not allowed to split or alter them. Please review order, thank you. Reilly Keene RN, RN 12/01/2017 11:54 AM Signed Addended by: REILLY KEENE on: 12/01/2017 11:54 AM Modules accepted: Orders Ruben Amaya MD 12/01/2017 12:59 PM Signed The following approved medication requests have been transmitted electronically. Signed Prescriptions Disp Refills furosemide (LASIX) 20 mg tablet 90 tablet 3 Sig: Take 1 tablet by mouth once daily. MIGUELINA: No Authorizing Provider: RUBEN AMAYA MD Kenneth E. Shafer, MD 12/01/2017 12:59 PM Signed Addended by: RUBEN AMAYA MD on: 12/01/2017 12:59 PM Modules accepted: Orders Allergies As of Date: 11/28/2017 (No Known Allergies) Date Reviewed: 11/27/2017 Reviewed by: Priya Serna - Fully Assessed Reason for Visit: Results [95] Cmt: [facility] Primary Visit Diagnosis:Acute diastolic CHF (congestive heart failure) ([facility]) [I50.31] Order(s):BASIC METABOLIC PNL [SQBMP] Order #: [id number] FUTURE furosemide (LASIX) 20 mg tabletTake 1 tablet by mouth once daily.Disp: 90 tabletRfl: 3 Prescriptions as of 11/28/2017 Sig: FUROSEMIDE 20 MG TABLET Take 1 tablet by mouth once d* LANTUS 100 UNIT/ML SUBCUTANEO* Give 22 units subq daily at 4* POTASSIUM CHLORIDE ER 20 MEQ * TAKE 1 TABLET BY MOUTH DAILY WHEAT DEXTRIN 3 GRAM/3.8 GRAM* Stir 2 teaspoonfuls into 4-8 * CHOLECALCIFEROL (VITAMIN D3) * Take 1 capsule by mouth once * CLOZAPINE 100 MG TABLET take one tablet at noon, 2 ta* AZITHROMYCIN 250 MG TABLET Take 1 tablet by mouth once d* GLIPIZIDE 5 MG TABLET TAKE 1 TABLET TWICE A DAY ALBUTEROL SULFATE CONCENTRATE* Inhale 0.5 mL as instructed o* DOXYCYCLINE MONOHYDRATE 100 M* Take 1 capsule by mouth twice* ALBUTEROL SULFATE HFA 90 MCG/* Inhale 2 Puffs as instructed * SPIRIVA WITH HANDIHALER 18 MC* INHALE CONTENTS OF ONE CAPSUL* METFORMIN 500 MG TABLET TAKE 2 TABLETS BY MOUTH TWICE* STOOL SOFTENER 100 MG CAPSULE TAKE 1 CAPSULE TWICE A DAY LACTULOSE 10 GRAM/15 ML ORAL * Take 30 mL by mouth twice mainor* INSULIN SYRINGE-NEEDLE U-100 * 10 Units once daily. PRAVASTATIN 20 MG TABLET TAKE 1 TABLET BY MOUTH ONCE D* FLOVENT DISKUS 250 MCG/ACTUAT* INHALE ONE PUFF BY MOUTH TWIC* SPIRIVA RESPIMAT INHALATION Inhale as instructed. FIBER (PSYLLIUM HUSK) ORAL Take by mouth once daily. FISH OIL CONCENTRATE ORAL Take by mouth once daily. KEILA OIL DESVENLAFAXINE SUCCINATE ER 5* Take 50 mg by mouth once ziggy* LANCETS test BS twice daily 2 days a * RISPERIDONE 2 MG DISINTEGRATI* Take 2 mg by mouth once daily. BLOOD SUGAR DIAGNOSTIC STRIPS test BS twice daily - dx - 25* CLONAZEPAM 1 MG TABLET Take 0.5 mg Bid, 1 mg po at HS PEN NEEDLE, DIABETIC 31 GAUGE* Use one needle per dose. Once* BLOOD-GLUCOSE METER KIT Used once daily to check bloo* CHOLECALCIFEROL (VITAMIN D3) * Take 1 tablet by mouth once d* * MULTIVITAMIN ORAL Take 1 tablet by mouth once d* * RISPERIDONE MICROSPHERES 50 M* Inject 2 mL intramuscularly e* Problem List As Of Date 11/28/2017 Noted Resolved Schizophreniform disorder, chronic condition (H* Priority: Mild More... Other abnormal glucose [R73.09] Priority: A More... DM w/o Complication Type II [E11.9] INVALID FOR*02/22/2014 Priority: Moderate Gastritis [K29.70] INVALID FOR* Routine general medical examination at a [facility]*INVALID FOR*11/26/2011 Class: Chronic More... Routine gynecological examination [Z01.419] INVALID FOR*11/26/2011 Class: Chronic More... Vitamin D deficiency [E55.9] INVALID FOR* Priority: A More... Liver Function Test Abnormality [R94.5] INVALID FOR* More... 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 Encounter for screening for malignant neoplasm *INVALID FOR* Postmenopausal bleeding [N95.0] INVALID FOR* More... Acute diastolic CHF (congestive heart failure) *INVALID FOR* More... Prescriptions ordered this encounter Disp Refills Start End FUROSEMIDE 40 MG TABLET 28 t* 3 11/28/2017 12/01/2017 Class: Med Update Route: ORAL Sig: Take 0.5 tablets by mouth once daily. FUROSEMIDE 20 MG TABLET 90 t* 3 12/01/2017 Route: ORAL Sig: Take 1 tablet by mouth once daily. Medications Discontinued During This Encounter furosemide (LASIX) 40 mg tablet 28 t* 3 11/12/2017 11/28/2017 Cmt: Maximum Refills Reached Sig: TAKE 1 TABLET BY MOUTH DAILY Disc: Reason for discontinue is not on file. furosemide (LASIX) 40 mg tablet 28 t* 3 11/28/2017 12/01/2017 Class: Med Update Route: ORAL Sig: Take 0.5 tablets by mouth once daily. Disc: Reason for discontinue is not on file. Encounter Status:Closed by REILLY KEENE on 11/28/17 BASIC METABOLIC Collected: 11/27/2017 Status: F Source: [place] PROFILE ([facility]) 4:42 PM [facility] REPOSITORY TYPE CODE TESTS RESULT OUT OF RANGE REFERENCE UNITS LAB L501.0100 74-106 mg/dL High GLU 153 Result Comment: Fasting Glucose result greater than or equal to 126 mg/dL suggests DIABETES MELLITUS per A.D.A. criteria. Please note revised GLUCOSE reference range effective 2017. LAB L501.1000 7-18 mg/dL Normal BUN 13 LAB L501.1100 0.55-1.02 mg/dL Normal CREAT,SERUM 0.70 Result Comment: The validity of the calculated GFR AND GFRAA in patients over 70 years has not been determined. Clinical correlation is essential. LAB L501.1110 >60 mL/min Normal EST GFR 93 Result Comment: Non- GFR Calc LAB L501.1115 >60 mL/min Normal EST GFR - AA 113 Result Comment: GFR Calc LAB L501.1300 10-20 RATIO Normal BUN/CRE 18.7 LAB L501.2200 8.5-10.1 mg/dL CA Normal 9.2 LAB L501.5300 136-145 mmol/L Low NA 135 LAB L501.5600 3.5-5.1 mmol/L K Normal 3.9 LAB L501.5900 98-107 mmol/L CL Normal 100 LAB L501.6100 21.0-32.0 mmol/L Normal CO2 24.0 LAB L501.6200 5-15 Normal GAP 11 Performed By: #### L500.2500, L501.5200, L501.9520 #### [facility] [address] [place], [address] MAGNESIUM Collected: 11/27/2017 Status: F Source: [place] 4:42 PM [facility] REPOSITORY TYPE CODE TESTS RESULT OUT OF RANGE REFERENCE UNITS LAB L501.5200 1.6-2.6 mg/dL Normal MG 1.8 Result Comment: Please note revised Magnesium reference range effective 2017. Performed By: #### L500.2500, L501.5200, L501.9520 #### [facility] [address] [place], [address] THYROID STIM HORMONE Collected: 11/27/2017 Status: F Source: [place] ([facility]) 4:42 PM [facility] REPOSITORY TYPE CODE TESTS RESULT OUT OF RANGE REFERENCE UNITS LAB L501.9520 0.358-3.74 uIU/mL Normal TSH 1.44 Performed By: #### L500.2500, L501.5200, L501.9520 #### [facility] [address] [place], [address] BASIC METABOLIC PANL Collected: 11/27/2017 Status: F Source: [place] 2:58 PM [facility] REPOSITORY TYPE CODE TESTS RESULT OUT OF REFERENCE UNITS RANGE LAB GLU 74-99 mg/dL Test Glucose sent to [facility]. Result Comment: Account Credited HIDE LAB BUN 7-21 mg/dL Test sent BUN to [facility]. Result Comment: Account Credited [facility] LAB CRET 0.58-0.96 mg/dL Creatinine Test sent to [facility]. Result Comment: Account Credited [facility] LAB NA 136-144 mmol/L Test Sodium sent to [facility]. Result Comment: Account Credited [facility] LAB K 3.7-5.1 mmol/L Test Potassium sent to [facility]. Result Comment: Account Credited [facility] LAB CL 97-105 mmol/L Test Chloride sent to [facility]. Result Comment: Account Credited [facility] LAB CO2 22-30 mmol/L Test sent CO2 to [facility]. Result Comment: Account Credited [facility] LAB AGAP 9-18 mmol/L Test sent Anion Gap to [facility]. Result Comment: Account Credited [facility] LAB CA 8.5-10.2 mg/dL Test Calcium, Total sent to [facility]. Result Comment: Account Credited [facility] LAB GFRAA eGFR- Amer. Test sent to [facility]. Result Comment: Account Credited [facility] LAB GFRNAA . eGFR-All Test sent Other Races to [facility]. Result Comment: Account Credited [facility] LAB GFRPED eGFR-Ped. Test sent Factor to [facility]. Result Comment: Account Credited HIDE MAGNESIUM Collected: 11/27/2017 Status: F Source: [place] 2:58 PM [facility] REPOSITORY TYPE CODE TESTS RESULT OUT OF REFERENCE UNITS RANGE LAB MG 1.7-2.3 mg/dL Test Magnesium sent to [facility]. Result Comment: Account Credited HIDE TSH Collected: 11/27/2017 Status: F Source: [place] 2:58 PM [facility] REPOSITORY TYPE CODE TESTS RESULT OUT OF REFERENCE UNITS RANGE LAB TSH 0.400-5.500 uU/mL Test TSH sent to [facility]. Result Comment: Account Credited HIDE PROGRESS Observed: 11/27/2017 Status: COMPLETED Source: [place] 2:47 PM [facility] REPOSITORY HNO ID: [id number] Author: Ruben Amaya Service: (none) Author Type: Physician Type: Progress Notes Filed: 11/27/2017 5:20 PM Note Text: PERTINENT CARDIAC HISTORY Near syncope Palpitations HL HTN Tachycardia DM LIDA - CPAP CHF - diastolic if any ADHERENCE TO GUIDELINES CESIA-I or ARB for HF with prior LVEF<40 (NQF 0081) - N/A ASA or Plavix for ASHD (NQF 0067) - N/A Beta harika for ASHD with prior KS or prior LVEF<40 (NQF 0070) - N/A Beta harika for HF with prior LVEF<40 (NQF 0083) - N/A CESIA-I or ARB for ASHD with DM or prior LVEF<40 (NQF 0066) - N/A Statin therapy for ASHD or FHL or DM - met BMI documented and plan if >25 (NQF 0421) - lifestyle recommendation form Tobacco use screening and referral (NQF 0028) - lifestyle recommendation form Recommendation for whole food, plant based diet - lifestyle recommendation form CLINICAL IMPRESSION/PLAN: Brittnee Le likely has diastolic dysfunction which was unmasked by her respiratory distress. However, she appears to be a little volume depleted at this time. She will have TSH, basic profile and magnesium. We will likely decrease her Lasix and potassium. Otherwise she will continue her current medication. We will consider adding low-dose beta harika therapy in the future, if tachycardia persists. Outside Sales Manager reports that she may require DANDC in the near future. Risk of perioperative cardiac complications is low to intermediate for the procedure. Her heart rhythm and function are normal. There is no evidence of unstable ischemic heart disease. She has not voiced any complaints of chest discomfort and has remained active with stable exercise tolerance. No further diagnostic studies are recommended prior to surgery. I will see her in 6 months or as needed. Written and verbal health teaching given to patient, patient verbalizes understanding and agrees with treatment plan. This note was generated using Appsperse voice recognition system, and there may be some incorrect words, spellings, and punctuation that were not noted in checking the note before saving. DIAGNOSIS FOR VISIT: Palpitations HISTORY OF PRESENT ILLNESS Brittnee Le returns for follow-up of her palpitations and sinus tachycardia. She had a recent admission for pneumonia and was advised that she has diastolic heart failure. Presumably, this was on the basis of an elevated BNP, which is not surprising in the setting of acute pulmonary distress. Echocardiogram was done and showed normal left ventricular systolic function. She was started on Lasix and potassium. She has had no edema but has had some intermittent lightheadedness. Her heart rate has been slightly higher. She denies chest pain, orthopnea, edema, TIAs, amaurosis or claudication. Her palpitations have been stable. ALLERGIES: ALLERGIES No Known Allergies CURRENT OUTPATIENT MEDICATIONS: LANTUS 100 unit/mL injection Give 22 units subq daily at 4 PM or as directed potassium chloride ER (K-DUR, KLOR-CON) 20 mEq tablet TAKE 1 TABLET BY MOUTH DAILY furosemide (LASIX) 40 mg tablet TAKE 1 TABLET BY MOUTH DAILY wheat dextrin (BENEFIBER SUGAR FREE, DEXTRIN,) 3 gram/3.8 gram powd Stir 2 teaspoonfuls into 4-8 oz of beverage or soft food daily Cholecalciferol, Vitamin D3, 1,000 unit cap Take 1 capsule by mouth once daily. cloZAPine (CLOZARIL) 100 mg tablet take one tablet at noon, 2 tablets at 3 PM and 3 tablets at Bedtime glipiZIDE (GLUCOTROL) 5 mg tablet TAKE 1 TABLET TWICE A DAY albuterol (PROVENTIL) 5 mg/mL nebu Inhale 0.5 mL as instructed one time only for 1 dose. 1 DOSE NOW - BACK OFFICE. PLACE 0.5 ML PER DROPPER AND 2.5 ML OF NORMAL SALINE INTO RESERVOIR. doxycycline monohydrate (MONODOX) 100 mg capsule Take 1 capsule by mouth twice daily. albuterol HFA (VENTOLIN HFA) 90 mcg/actuation inhaler Inhale 2 Puffs as instructed every 4 hours as needed for Wheezing/Shortness of Breath. SPIRIVA WITH HANDIHALER 18 mcg inhalation capsule INHALE CONTENTS OF ONE CAPSULE DAILY USING HANDIHALER DEVICE metFORMIN (GLUCOPHAGE) 500 mg tablet TAKE 2 TABLETS BY MOUTH TWICE DAILY WITH MEALS. . STOOL SOFTENER 100 mg capsule TAKE 1 CAPSULE TWICE A DAY lactulose (CONSTULOSE) 10 gram/15 mL solution Take 30 mL by mouth twice daily. Prn constipation; hold for diarrhea Insulin Syringe-Needle U-100 (BD INSULIN SYRINGE) 1 mL 28 gauge x 1/2 syrg 10 Units once daily. pravastatin (PRAVACHOL) 20 mg tablet TAKE 1 TABLET BY MOUTH ONCE DAILY. FLOVENT DISKUS 250 mcg/actuation dsdv INHALE ONE PUFF BY MOUTH TWICE DAILY DIRECTED TIOTROPIUM BROMIDE (SPIRIVA RESPIMAT INHALATION) Inhale as instructed. FIBER, PSYLLIUM HUSK, ORAL Take by mouth once daily. OMEGA-3 FATTY ACIDS (FISH OIL CONCENTRATE ORAL) Take by mouth once daily. [place]ila Oil (CINNAMON OIL) oil desvenlafaxine ER (PRISTIQ) 50 mg 24 hr tablet Take 50 mg by mouth once daily. Lancets lancets test BS twice daily 2 days a week- dx 250.00 - non-insulin risperiDONE orally disintegrating (RISPERDAL M) 2 mg disintegrating tablet Take 2 mg by mouth once daily. blood sugar diagnostic (FREESTYLE LITE STRIPS) test strip test BS twice daily - dx - 250.00 -insulin Yes clonazePAM (KLONOPIN) 1 mg tablet Take 0.5 mg Bid, 1 mg po at HS insulin needles, DISPOSABLE, (PEN NEEDLE) 31 X 5/16 ndle Use one needle per dose. Once per day. Blood-Glucose Meter (FREESTYLE LITE METER) monitoring kit Used once daily to check blood sugar. 250.00 Cholecalciferol, Vitamin D3, 2,000 unit cap Take 1 tablet by mouth once daily. MULTIVITAMIN ORAL Take 1 tablet by mouth once daily. risperidone (RISPERDAL CONSTA) 50 mg/2 mL INTRAMUSC. injection Inject 2 mL intramuscularly every 2 weeks. azithromycin (ZITHROMAX) 250 mg tablet Take 1 tablet by mouth once daily for 3 days. 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 [facility], pt was on metformin for a while but taken off - pt never told if she had DM or not - Major depressive disorder, recurrent episode, unspecified - Nonspecific elevation of levels of transaminase or lactic acid dehydrogenase (LDH) - LIDA (obstructive sleep apnea) - Pneumonia - Schizophreniform disorder, chronic condition (HCC) - Simple endometrial hyperplasia without atypia mirena IUD 01/2011 PAST SURGICAL HISTORY Procedure Laterality Date - COLONOSCOPY W/BX 12/19/2016 Normal colonoscopy-10 year follow-up - PAST SURGICAL HISTORY OF 1982 corrective jaw surgery - REMOVAL GALLBLADDER 1998 open FAMILY HISTORY Problem Relation Age of Onset - Psychiatry Mother depression - lung cancer [OTHER] Paternal Grandfather - Psychiatry Brother schizophrenia - Diabetes Brother - Hypertension Brother - Psychiatry Sister deperssion Social History Marital status: Single Spouse name: Years of education: 14 Number of children: 0 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 Respiratory: No productive cough. Cardiac: As noted above. GI: No melena. : No dysuria. Musculoskeletal: No myalgias. PHYSICAL EXAMINATION: S/he is alert and in no distress. VITAL SIGNS: BP 116/70 Pulse 94 Ht 5' 1 (1.55m) Wt 190 lb 11.2 oz (86.5kg) LMP 09/12/2017 BMI 36.05 kg/(m2). SHEENT: Skin is warm and dry. No xanthelasmas appreciated. Pharynx is benign. There is no oral cyanosis. Neck: supple. No adenopathy or thyroid enlargement. Chest: Clear to percussion and auscultation. Trachea is midline. Air entry is equal. There is no chest wall tenderness. Cardiac: Regular rhythm. S1 and S2 are normal. PMI is nondisplaced. There are no murmurs, rubs or gallops. No click is heard. Carotids are brisk without bruits. JVP is less than 10 cm. Abdomen: Soft and nontender. There are no pulsatile masses or bruits. No liver enlargement. Bowel sounds are active. Extremities: No edema. Pulses are intact and symmetrical. No clubbing or cyanosis. No femoral bruits. Neurologic: Grossly normal motor and sensory. S/he is alert and oriented x4. Recent labs were reviewed. CBC is normal. Renal function is normal. Sodium is slightly low. Echocardiogram shows normal LV function. Diastolic function was said to be normal. EKG demonstrated sinus tachycardia without acute change. Electronically Signed: Ruben Amaya MD November 27, 2017 2:47 PM CC:Boris Jones MD CNOV Observed: 11/27/2017 Status: COMPLETED Source: [place] 2:30 PM [facility] REPOSITORY Office Visit (AGCARDWST) BRITTNEE LE ([id number]) 1965 F Date Time Provider Department 11/27/17 2:30 PM RUBEN AMAYA AGCDAVONTE During your visit today, we recorded the following information about you: Pulse Blood pressure Weight Height 94/minute 116/70 86.5 kg 1.549 m Ruben Amaya MD 11/27/2017 5:20 PM Addendum PERTINENT CARDIAC HISTORY Near syncope Palpitations HL HTN Tachycardia DM LIDA - CPAP CHF - diastolic if any ADHERENCE TO GUIDELINES CESIA-I or ARB for HF with prior LVEFANDlt;40 (NQF 0081) - N/A ASA or Plavix for ASHD (NQF 0067) - N/A Beta harika for ASHD with prior KS or prior LVEFANDlt;40 (NQ 0070) - N/A Beta harika for HF with prior LVEFANDlt;40 (NQF 0083) - N/A CESIA-I or ARB for ASHD with DM or prior LVEFANDlt;40 (NQ 0066) - N/A Statin therapy for ASHD or FHL or DM - met BMI documented and plan if ANDgt;25 (NQ 0421) - lifestyle recommendation form Tobacco use screening and referral (NQ 0028) - lifestyle recommendation form Recommendation for whole food, plant based diet - lifestyle recommendation form CLINICAL IMPRESSION/PLAN: Brittnee Le likely has diastolic dysfunction which was unmasked by her respiratory distress. However, she appears to be a little volume depleted at this time. She will have TSH, basic profile and magnesium. We will likely decrease her Lasix and potassium. Otherwise she will continue her current medication. We will consider adding low-dose beta harika therapy in the future, if tachycardia persists. Outside Sales Manager reports that she may require DANDamp;C in the near future. Risk of perioperative cardiac complications is low to intermediate for the procedure. Her heart rhythm and function are normal. There is no evidence of unstable ischemic heart disease. She has not voiced any complaints of chest discomfort and has remained active with stable exercise tolerance. No further diagnostic studies are recommended prior to surgery. I will see her in 6 months or as needed. Written and verbal health teaching given to patient, patient verbalizes understanding and agrees with treatment plan. This note was generated using Appsperse voice recognition system, and there may be some incorrect words, spellings, and punctuation that were not noted in checking the note before saving. DIAGNOSIS FOR VISIT: Palpitations HISTORY OF PRESENT ILLNESS Brittnee Le returns for follow-up of her palpitations and sinus tachycardia. She had a recent admission for pneumonia and was advised that she has diastolic heart failure. Presumably, this was on the basis of an elevated BNP, which is not surprising in the setting of acute pulmonary distress. Echocardiogram was done and showed normal left ventricular systolic function. She was started on Lasix and potassium. She has had no edema but has had some intermittent lightheadedness. Her heart rate has been slightly higher. She denies chest pain, orthopnea, edema, TIAs, amaurosis or claudication. Her palpitations have been stable. ALLERGIES: ALLERGIES No Known Allergies CURRENT OUTPATIENT MEDICATIONS: LANTUS 100 unit/mL injection Give 22 units subq daily at 4 PM or as directed potassium chloride ER (K-DUR, KLOR-CON) 20 mEq tablet TAKE 1 TABLET BY MOUTH DAILY furosemide (LASIX) 40 mg tablet TAKE 1 TABLET BY MOUTH DAILY wheat dextrin (BENEFIBER SUGAR FREE, DEXTRIN,) 3 gram/3.8 gram powd Stir 2 teaspoonfuls into 4-8 oz of beverage or soft food daily Cholecalciferol, Vitamin D3, 1,000 unit cap Take 1 capsule by mouth once daily. cloZAPine (CLOZARIL) 100 mg tablet take one tablet at noon, 2 tablets at 3 PM and 3 tablets at Bedtime glipiZIDE (GLUCOTROL) 5 mg tablet TAKE 1 TABLET TWICE A DAY albuterol (PROVENTIL) 5 mg/mL nebu Inhale 0.5 mL as instructed one time only for 1 dose. 1 DOSE NOW - BACK OFFICE. PLACE 0.5 ML PER DROPPER AND 2.5 ML OF NORMAL SALINE INTO RESERVOIR. doxycycline monohydrate (MONODOX) 100 mg capsule Take 1 capsule by mouth twice daily. albuterol HFA (VENTOLIN HFA) 90 mcg/actuation inhaler Inhale 2 Puffs as instructed every 4 hours as needed for Wheezing/Shortness of Breath. SPIRIVA WITH HANDIHALER 18 mcg inhalation capsule INHALE CONTENTS OF ONE CAPSULE DAILY USING HANDIHALER DEVICE metFORMIN (GLUCOPHAGE) 500 mg tablet TAKE 2 TABLETS BY MOUTH TWICE DAILY WITH MEALS. . STOOL SOFTENER 100 mg capsule TAKE 1 CAPSULE TWICE A DAY lactulose (CONSTULOSE) 10 gram/15 mL solution Take 30 mL by mouth twice daily. Prn constipation; hold for diarrhea Insulin Syringe-Needle U-100 (BD INSULIN SYRINGE) 1 mL 28 gauge x 1/2ANDquot; syrg 10 Units once daily. pravastatin (PRAVACHOL) 20 mg tablet TAKE 1 TABLET BY MOUTH ONCE DAILY. FLOVENT DISKUS 250 mcg/actuation dsdv INHALE ONE PUFF BY MOUTH TWICE DAILY DIRECTED TIOTROPIUM BROMIDE (SPIRIVA RESPIMAT INHALATION) Inhale as instructed. FIBER, PSYLLIUM HUSK, ORAL Take by mouth once daily. OMEGA-3 FATTY ACIDS (FISH OIL CONCENTRATE ORAL) Take by mouth once daily. [place] Oil (CINNAMON OIL) oil desvenlafaxine ER (PRISTIQ) 50 mg 24 hr tablet Take 50 mg by mouth once daily. Lancets lancets test BS twice daily 2 days a week- dx 250.00 - non-insulin risperiDONE orally disintegrating (RISPERDAL M) 2 mg disintegrating tablet Take 2 mg by mouth once daily. blood sugar diagnostic (FREESTYLE LITE STRIPS) test strip test BS twice daily - dx - 250.00 -insulin Yes clonazePAM (KLONOPIN) 1 mg tablet Take 0.5 mg Bid, 1 mg po at HS insulin needles, DISPOSABLE, (PEN NEEDLE) 31 X 5/16 ANDquot; ndle Use one needle per dose. Once per day. Blood-Glucose Meter (FREESTYLE LITE METER) monitoring kit Used once daily to check blood sugar. 250.00 Cholecalciferol, Vitamin D3, 2,000 unit cap Take 1 tablet by mouth once daily. MULTIVITAMIN ORAL Take 1 tablet by mouth once daily. risperidone (RISPERDAL CONSTA) 50 mg/2 mL INTRAMUSC. injection Inject 2 mL intramuscularly every 2 weeks. azithromycin (ZITHROMAX) 250 mg tablet Take 1 tablet by mouth once daily for 3 days. 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, pt was on metformin for a while but taken off - pt never told if she had DM or not - Major depressive disorder, recurrent episode, unspecified - Nonspecific elevation of levels of transaminase or lactic acid dehydrogenase (LDH) - LIDA (obstructive sleep apnea) - Pneumonia - Schizophreniform disorder, chronic condition (HCC) - Simple endometrial hyperplasia without atypia mirena IUD 01/2011 PAST SURGICAL HISTORY Procedure Laterality Date - COLONOSCOPY W/BX 12/19/2016 Normal colonoscopy-10 year follow-up - PAST SURGICAL HISTORY OF 1982 corrective jaw surgery - REMOVAL GALLBLADDER 1998 open FAMILY HISTORY Problem Relation Age of Onset - Psychiatry Mother depression - lung cancer [OTHER] Paternal Grandfather - Psychiatry Brother schizophrenia - Diabetes Brother - Hypertension Brother - Psychiatry Sister deperssion Social History Marital status: Single Spouse name: Years of education: 14 Number of children: 0 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 Respiratory: No productive cough. Cardiac: As noted above. GI: No melena. : No dysuria. Musculoskeletal: No myalgias. PHYSICAL EXAMINATION: S/he is alert and in no distress. VITAL SIGNS: BP 116/70 Pulse 94 Ht 5' 1ANDquot; (1.55m) Wt 190 lb 11.2 oz (86.5kg) LMP 09/12/2017 BMI 36.05 kg/(m2). SHEENT: Skin is warm and dry. No xanthelasmas appreciated. Pharynx is benign. There is no oral cyanosis. Neck: supple. No adenopathy or thyroid enlargement. Chest: Clear to percussion and auscultation. Trachea is midline. Air entry is equal. There is no chest wall tenderness. Cardiac: Regular rhythm. S1 and S2 are normal. PMI is nondisplaced. There are no murmurs, rubs or gallops. No click is heard. Carotids are brisk without bruits. JVP is less than 10 cm. Abdomen: Soft and nontender. There are no pulsatile masses or bruits. No liver enlargement. Bowel sounds are active. Extremities: No edema. Pulses are intact and symmetrical. No clubbing or cyanosis. No femoral bruits. Neurologic: Grossly normal motor and sensory. S/he is alert and oriented x4. Recent labs were reviewed. CBC is normal. Renal function is normal. Sodium is slightly low. Echocardiogram shows normal LV function. Diastolic function was said to be normal. EKG demonstrated sinus tachycardia without acute change. Electronically Signed: Ruben Amaya MD November 27, 2017 2:47 PM CC:MD Ruben Oviedo MD 11/27/2017 2:48 PM Signed LIFESTYLE CHANGE A healthy lifestyle is the most important component of your overall treatment plan. 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 EAT A WHOLE FOOD, PLANT BASED DIET The nutrition your body gets is more important than the medicine you take. What matters most is the overall way you eat. We encourage you to minimize the use of animal products (which include dairy and all meats except fatty fish) and use whole, unprocessed plant foods to provide your protein, vitamins and other nutrients. We have a lot of information to share with you on this topic. We also hold Shared Medical Appointments, where you can come visit with Dr. Amaya in the company of other patients and spend over an hour talking about the challenges of changing the way you eat. This is not a ANDquot;dietANDquot;. It is a way of life that you will keep with you. EXERCISE REGULARLY It is not important to spend hours in the gym, lifting weights and perspiring heavily. A total of 2-3 hours per week of aerobic (causing you to be moderately short of breath) exercise is sufficient to improve your health. Talk to us before you begin a new exercise program, if you have heart disease or experience shortness of breath or chest pain. REDUCE STRESS Chronic emotional and physical stress leads to disease. Ways of reducing stress include meditation, visualization, prayer, yoga and other forms of relaxation therapy. Consistency is the bosch. Find a technique that works for you and do it every day. CULTIVATE RELATIONSHIPS Loneliness and isolation have a major negative impact on health. Seek out others who can love, care for and nurture you. Avoid hurtful relationships. MAINTAIN IDEAL BODY WEIGHT The best way to do this is to do all the things above. Our bodies naturally find the right weight if we keep moving and feed ourselves the right food. If your BMI is greater than 25, we strongly recommend a referral to a weight management program. Please speak to us or your family physician about available programs. AVOID NICOTINE IN ALL FORMS This includes all tobacco products, whether chewed, smoked, vaped, or rubbed on the skin. Smoking cessation programs, which can make use of tobacco substitutes, medications to suppress cravings and behavior management, are available. Please contact your family physician about programs in your area. Referring Provider: RUBEN AMAYA [[id number]] Allergies As of Date: 11/27/2017 (No Known Allergies) Date Reviewed: 11/27/2017 Reviewed by: Priya Serna - Fully Assessed Reason for Visit: Follow Up [171] Primary Visit Diagnosis:Palpitations [R00.2] Other Visit Diagnosis:Chronic diastolic CHF (congestive heart failure) (HCC) [I50.32] Order(s):TSH BLD [SQTS] Order #: [id number] FUTURE BASIC METABOLIC PNL [SQBMP] Order #: [id number] FUTURE MAGNESIUM BLD [SQMG1] Order #: [id number] FUTURE Prescriptions as of 11/27/2017 Sig: LANTUS 100 UNIT/ML SUBCUTANEO* Give 22 units subq daily at 4* POTASSIUM CHLORIDE ER 20 MEQ * TAKE 1 TABLET BY MOUTH DAILY FUROSEMIDE 40 MG TABLET TAKE 1 TABLET BY MOUTH DAILY WHEAT DEXTRIN 3 GRAM/3.8 GRAM* Stir 2 teaspoonfuls into 4-8 * CHOLECALCIFEROL (VITAMIN D3) * Take 1 capsule by mouth once * CLOZAPINE 100 MG TABLET take one tablet at noon, 2 ta* GLIPIZIDE 5 MG TABLET TAKE 1 TABLET TWICE A DAY ALBUTEROL SULFATE CONCENTRATE* Inhale 0.5 mL as instructed o* DOXYCYCLINE MONOHYDRATE 100 M* Take 1 capsule by mouth twice* ALBUTEROL SULFATE HFA 90 MCG/* Inhale 2 Puffs as instructed * SPIRIVA WITH HANDIHALER 18 MC* INHALE CONTENTS OF ONE CAPSUL* METFORMIN 500 MG TABLET TAKE 2 TABLETS BY MOUTH TWICE* STOOL SOFTENER 100 MG CAPSULE TAKE 1 CAPSULE TWICE A DAY LACTULOSE 10 GRAM/15 ML ORAL * Take 30 mL by mouth twice mainor* INSULIN SYRINGE-NEEDLE U-100 * 10 Units once daily. PRAVASTATIN 20 MG TABLET TAKE 1 TABLET BY MOUTH ONCE D* FLOVENT DISKUS 250 MCG/ACTUAT* INHALE ONE PUFF BY MOUTH TWIC* SPIRIVA RESPIMAT INHALATION Inhale as instructed. FIBER (PSYLLIUM HUSK) ORAL Take by mouth once daily. FISH OIL CONCENTRATE ORAL Take by mouth once daily. KEILA OIL DESVENLAFAXINE SUCCINATE ER 5* Take 50 mg by mouth once ziggy* LANCETS test BS twice daily 2 days a * RISPERIDONE 2 MG DISINTEGRATI* Take 2 mg by mouth once daily. BLOOD SUGAR DIAGNOSTIC STRIPS test BS twice daily - dx - 25* CLONAZEPAM 1 MG TABLET Take 0.5 mg Bid, 1 mg po at HS PEN NEEDLE, DIABETIC 31 GAUGE* Use one needle per dose. Once* BLOOD-GLUCOSE METER KIT Used once daily to check bloo* CHOLECALCIFEROL (VITAMIN D3) * Take 1 tablet by mouth once d* * MULTIVITAMIN ORAL Take 1 tablet by mouth once d* * RISPERIDONE MICROSPHERES 50 M* Inject 2 mL intramuscularly e* AZITHROMYCIN 250 MG TABLET Take 1 tablet by mouth once d* Medication notes this encounter AZITHROMYCIN 250 MG TABLET >> Priya Serna MA 11/27/2017 2:17 PM >> DAPHNE GARCIA AMANDA Milka Nov 27, 2017 2:17 PM Course of therapy completed. Problem List As Of Date 11/27/2017 Noted Resolved Schizophreniform disorder, chronic condition (H* Priority: Mild More... Other abnormal glucose [R73.09] Priority: A More... DM w/o Complication Type II [E11.9] INVALID FOR*02/22/2014 Priority: Moderate Gastritis [K29.70] INVALID FOR* Routine general medical examination at a [facility]*INVALID FOR*11/26/2011 Class: Chronic More... Routine gynecological examination [Z01.419] INVALID FOR*11/26/2011 Class: Chronic More... Vitamin D deficiency [E55.9] INVALID FOR* Priority: A More... Liver Function Test Abnormality [R94.5] INVALID FOR* More... 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 Encounter for screening for malignant neoplasm *INVALID FOR* Postmenopausal bleeding [N95.0] INVALID FOR* More... Acute diastolic CHF (congestive heart failure) *INVALID FOR* More... Other instructions from your clinician: LIFESTYLE CHANGE A healthy lifestyle is the most important component of your overall treatment plan. Please give serious thought to the following areas and commit to making half-way changes. EAT A WHOLE FOOD, PLANT BASED DIET The nutrition your body gets is more important than the medicine you take. What matters most is the overall way you eat. We encourage you to minimize the use of animal products (which include dairy and all meats except fatty fish) and use whole, unprocessed plant foods to provide your protein, vitamins and other nutrients. We have a lot of information to share with you on this topic. We also hold Shared Medical Appointments, where you can come visit with Dr. Amaya in the company of other patients and spend over an hour talking about the challenges of changing the way you eat. This is not a diet. It is a way of life that you will keep with you. EXERCISE REGULARLY It is not important to spend hours in the gym, lifting weights and perspiring heavily. A total of 2-3 hours per week of aerobic (causing you to be moderately short of breath) exercise is sufficient to improve your health. Talk to us before you begin a new exercise program, if you have heart disease or experience shortness of breath or chest pain. REDUCE STRESS Chronic emotional and physical stress leads to disease. Ways of reducing stress include meditation, visualization, prayer, yoga and other forms of relaxation therapy. Consistency is the bosch. Find a technique that works for you and do it every day. CULTIVATE RELATIONSHIPS Loneliness and isolation have a major negative impact on health. Seek out others who can love, care for and nurture you. Avoid hurtful relationships. MAINTAIN IDEAL BODY WEIGHT The best way to do this is to do all the things above. Our bodies naturally find the right weight if we keep moving and feed ourselves the right food. If your BMI is greater than 25, we strongly recommend a referral to a weight management program. Please speak to us or your family physician about available programs. AVOID NICOTINE IN ALL FORMS This includes all tobacco products, whether chewed, smoked, vaped, or rubbed on the skin. Smoking cessation programs, which can make use of tobacco substitutes, medications to suppress cravings and behavior management, are available. Please contact your family physician about programs in your area. Encounter Status:Closed by RUBEN AMAYA MD on 11/27/17 CNCO Observed: 11/27/2017 Status: COMPLETED Source: [place] 12:00 AM [facility] REPOSITORY Letter Text Boris Jones MD [facility] Brittnee Le [address] [facility] [address] Clinic #: [id number] 11/27/2017 Dear Ms. Le, I have received the results of your recent tests. The results of your BMP tests were either normal or within the acceptable range. We can discuss this at your next visit. Please do not hesitate to contact me with any questions. Sincerely, Boris Jones MD [facility] Department electronically signed to expedite mailing CBC W/DIFF, AUTOMATED Collected: 11/25/2017 Status: F Source: [place] 8:26 AM [facility] REPOSITORY TYPE CODE TESTS RESULT OUT OF RANGE REFERENCE UNITS LAB L100.1000 4.4-11.0 K/mm3 High WBC 11.8 LAB L100.1200 4.2-5.4 M/mm3 Normal RBC 4.44 LAB L100.1300 12.0-15.0 g/dl Normal HGB 12.9 LAB L100.1400 37-47 % Normal HCT 39.8 LAB L100.1500 81-99 fL Normal MCV 89.6 LAB L100.1600 27.0-32.0 pg Normal MCH 29.1 LAB L100.1700 32-36 g/gl Normal MCHC 32.4 LAB L100.1810 11.6-14.6 % High RDW CV 15.2 LAB L100.1820 35.1-43.9 fl High RDW SD 49.3 LAB L100.1900 150-450 K/mm3 Normal PLT 211 LAB L100.2000 6.2-12.0 fl Normal MPV 11.0 LAB L100.2100 47-70 % High NEUT% 78.2 LAB L100.2200 19-41 % Low LY% 15.0 LAB L100.2300 0-10 % Normal MONO% 5.9 LAB L100.2400 0-5 % Normal EO% 0.0 LAB L100.2500 0-1 % Normal BASO% 0.7 LAB L100.2550 0.0-0.9 % Normal IM GRAN % 0.200 Result Comment: IG% - Immature Granulocytes (promyelocytes, myelocytes and metamyelocytes) > 1% indicates that a LEFT SHIFT is Present. LAB L100.2620 2.0-7.7 X10 3/uL High Absolute Neut 9.2 LAB L100.2720 0.83-4.51 X10 3/ul Normal Absolute Lymph 1.77 Performed By: #### L100.0100 #### [facility] [address] [place], [address] BASIC METABOLIC PANL Collected: 2017 Status: F Source: [place] 2:22 PM [facility] REPOSITORY TYPE CODE TESTS RESULT OUT OF REFERENCE UNITS RANGE LAB GLU 74-99 mg/dL Test Glucose sent to [facility]. Result Comment: Account Credited [facility] BUN 7-21 mg/dL Test sent BUN to [facility]. Result Comment: Account Credited [facility] CRET 0.58-0.96 mg/dL Creatinine Test sent to [facility]. Result Comment: Account Credited [facility] NA 136-144 mmol/L Test Sodium sent to [facility]. Result Comment: Account Credited [facility] K 3.7-5.1 mmol/L Test Potassium sent to [facility]. Result Comment: Account Credited [facility] CL 97-105 mmol/L Test Chloride sent to [facility]. Result Comment: Account Credited [facility] CO2 22-30 mmol/L Test sent CO2 to [facility]. Result Comment: Account Credited [facility] AGAP 9-18 mmol/L Test sent Anion Gap to [facility]. Result Comment: Account Credited [facility] CA 8.5-10.2 mg/dL Test Calcium, Total sent to [facility]. Result Comment: Account Credited [facility] GFRAA eGFR- Amer. Test sent to [facility]. Result Comment: Account Credited [facility] GFRNAA . eGFR-All Test sent Other Races to [facility]. Result Comment: Account Credited [facility] GFRPED eGFR-Ped. Test sent Factor to [facility]. Result Comment: Account Credited [facility] BASIC METABOLIC Collected: 2017 Status: F Source: [place] PROFILE ([facility]) 2:20 PM [facility] REPOSITORY TYPE CODE TESTS RESULT OUT OF RANGE REFERENCE UNITS LAB L501.0100 74-106 mg/dL High GLU 221 Result Comment: Glucose result greater than or equal to 200 mg/dL suggests DIABETES MELLITUS per A.D.A. criteria. Please note revised GLUCOSE reference range effective 2017. LAB L501.1000 7-18 mg/dL Normal BUN 9 LAB L501.1100 0.55-1.02 mg/dL Normal CREAT,SERUM 0.72 Result Comment: The validity of the calculated GFR AND GFRAA in patients over 70 years has not been determined. Clinical correlation is essential. LAB L501.1110 >60 mL/min Normal EST GFR 90 Result Comment: Non- GFR Calc LAB L501.1115 >60 mL/min Normal EST GFR - AA 109 Result Comment: GFR Calc LAB L501.1300 10-20 RATIO Normal BUN/CRE 12.5 LAB L501.2200 8.5-10.1 mg/dL CA Normal 9.1 LAB L501.5300 136-145 mmol/L Low NA 135 LAB L501.5600 3.5-5.1 mmol/L K Normal 3.8 LAB L501.5900 98-107 mmol/L Low CL 96 LAB L501.6100 21.0-32.0 mmol/L Normal CO2 29.0 LAB L501.6200 5-15 Normal GAP 10 Performed By: #### L500.2500 #### [facility] [address] [place], [place], [address] PROGRESS Observed: 11/17/2017 Status: COMPLETED Source: [place] 2:10 PM [facility] REPOSITORY HNO ID: [id number] Author: Asia Crews) Indra Service: (none) Author Type: Registered Nurse Type: Progress Notes Filed: 11/17/2017 2:11 PM Note Text: TC to Leola GERBER, neetu message PCP recommends waiting a week or two for DANDC due to her recent hospitalization. Asia Burrell RN November 17, 2017 2:11 PM PROGRESS Observed: 11/17/2017 Status: COMPLETED Source: [place] 10:37 AM [facility] REPOSITORY HNO ID: [id number] Author: Boris Joens Service: (none) Author Type: Physician Type: Progress Notes Filed: 11/17/2017 2:11 PM Note Text: Can wait another week or two given recent hospitalization. PROGRESS Observed: 11/17/2017 Status: COMPLETED Source: [place] 9:17 AM [facility] REPOSITORY HNO ID: [id number] Author: Asia Crews) Indra Service: (none) Author Type: Registered Nurse Type: Progress Notes Filed: 11/17/2017 9:30 AM Note Text: PRIMARY CARE COORDINATION FOLLOW-UP NOTE Provider Action/FYI CM wants PCP's opinion on pt going for DANDC this soon after hospitalization. She would rather wait until pt is back 100%. PLEASE ADVISE PLEASE FILE NEW SCRIPT FOR GENOA Pending Prescriptions Disp Refills LANTUS 100 UNIT/ML SUBCUTANEOUS SOLUTION 10 mL 11 Sig: Give 22 units subq daily at 4 PM or as directed MIGUELINA: Yes Patient identified by name and date of . YES Spoke to ZABRINA Balderrama and Ezio at intermediate Summary: TC to Ezio at intermediate, informed Lantus insulin is to be increased from 20 units to 22 units at 4PM, verbalized understanding by teach back. Asked to fax new script to [facility]. TC from ZABRINA Balderrama states she is concerned about Brittnee having DANDC surgery when she isn't quite back to 100% yet. Asking for PCP's opinion. Also informed pt's Lantus is to be increased to 22 units. ZABRINA states they give it at 4 PM, not bedtime. PCC will change script. Savings Teller plan for next outreach: Will follow up one week Signature Asia Burrell RN November 17, 2017 PROGRESS Observed: 11/14/2017 Status: COMPLETED Source: [place] 3:08 PM [facility] REPOSITORY HNO ID: [id number] Author: Boris Jones Service: (none) Author Type: Physician Type: Progress Notes Filed: 11/17/2017 2:11 PM Note Text: Increase lantus to 22 units. Call sugars in one week PROGRESS Observed: 11/14/2017 Status: COMPLETED Source: [place] 8:58 AM [facility] REPOSITORY HNO ID: [id number] Author: Asia Crews) Indra Service: (none) Author Type: Registered Nurse Type: Progress Notes Filed: 11/14/2017 9:11 AM Note Text: TRANSITION CARE MANAGEMENT (TCM) FOLLOW-UP NOTE Provider Action/FYI Wt stable No SOB or cough Following 2L fluid restrictions SEE BS BELOW Patient identified by name and date of : YES Spoke to MICHELE Holguin at intermediate Summary: Patient is following fluid restrictions closely. Using 2 L bottle to measure daily fluids, if pt has other liquids they are removing water from 2L bottle Wt last 3 days-191, 192, 191 CG verbalizes understanding of calling if pt gain 3 or more lbs overnight. No noted SOB or cough. CGs don't check LE edema Brittnee eL is a 51 year old female who reports glucose readings as noted. DATE 11/13 11/12 11/11 11/10 Fasting 142 157 137 155 Before Meal 101 105 205 196 Any low blood sugars during this period of reporting No Patient's diabetes medications as follows: LANTUS 100 unit/mL Inject 20 Units subcutaneously daily at bedtime. metFORMIN (GLUCOPHAGE) 500 mg TAKE 2 TABLETS BY MOUTH TWICE DAILY WITH MEALS. . glipiZIDE (GLUCOTROL) 5 mg TAKE 1 TABLET TWICE A DAY Savings Teller plan for next outreach: Will follow up 3 weeks Brijesh Burrell RN November 14, 2017 CNPTOUTREACH Observed: 11/14/2017 Status: COMPLETED Source: [place] 12:00 AM [facility] REPOSITORY Patient Outreach (FAMPWS) BRITTNEE LE ([id number]) 1965 F Date Time Provider Department 11/14/17 ASIA BURRELL (RAMÓN) [facility]WS During your visit today, we recorded the following information about you: Asia Burrell RN 11/14/2017 9:11 AM Addendum TRANSITION CARE MANAGEMENT (TCM) FOLLOW-UP NOTE Provider Action/FYI Wt stable No SOB or cough Following 2L fluid restrictions SEE BS BELOW Patient identified by name and date of : YES Spoke to MICHELE Holguin at intermediate Summary: Patient is following fluid restrictions closely. Using 2 L bottle to measure daily fluids, if pt has other liquids they are removing water from 2L bottle Wt last 3 days-191, 192, 191 CG verbalizes understanding of calling if pt gain 3 or more lbs overnight. No noted SOB or cough. CGs don't check LE edema Brittnee Mayberry Rey is a 51 year old female who reports glucose readings as noted. DATE 11/13 11/12 11/11 11/10 Fasting 142 157 137 155 Before Meal 101 105 205 196 Any low blood sugars during this period of reporting No Patient's diabetes medications as follows: LANTUS 100 unit/mL Inject 20 Units subcutaneously daily at bedtime. metFORMIN (GLUCOPHAGE) 500 mg TAKE 2 TABLETS BY MOUTH TWICE DAILY WITH MEALS. . glipiZIDE (GLUCOTROL) 5 mg TAKE 1 TABLET TWICE A DAY Savings Teller plan for next outreach: Will follow up 3 weeks Signature Asia Burrell RN November 14, 2017 Boris Jones MD 11/17/2017 2:11 PM Signed Increase lantus to 22 units. Call sugars in one week Asia Burrell RN 11/17/2017 9:30 AM Signed PRIMARY CARE COORDINATION FOLLOW-UP NOTE Provider Action/FYI ZABRINA wants PCP's opinion on pt going for DANDamp;C this soon after hospitalization. She would rather wait until pt is back 100%. PLEASE ADVISE PLEASE FILE NEW SCRIPT FOR GENOA Pending Prescriptions Disp Refills LANTUS 100 UNIT/ML SUBCUTANEOUS SOLUTION 10 mL 11 Sig: Give 22 units subq daily at 4 PM or as directed MIGUELINA: Yes Patient identified by name and date of . YES Spoke to ZABRINA Balderrama and Ezio at intermediate Summary: TC to Ezio at intermediate, informed Lantus insulin is to be increased from 20 units to 22 units at 4PM, verbalized understanding by teach back. Asked to fax new script to [facility]. TC from ZABRINA Balderrama states she is concerned about Brittnee having DANDamp;C surgery when she isn't quite back to 100% yet. Asking for PCP's opinion. Also informed pt's Lantus is to be increased to 22 units. ZABRINA states they give it at 4 PM, not bedtime. PCC will change script. Savings Teller plan for next outreach: Will follow up one week Signature Asia Burrell RN November 17, 2017 Boris Jones MD 11/17/2017 2:11 PM Signed Can wait another week or two given recent hospitalization. Asia Burrell RN 11/17/2017 2:11 PM Signed TC to Leola GERBER left message PCP recommends waiting a week or two for DANDamp;C due to her recent hospitalization. 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 Hospital Follow Up [7600] Primary Visit Diagnosis:Type 2 diabetes mellitus with diabetic nephropathy, with long-term current use of insulin (HCC) [E11.21, Z79.4] Other Visit Diagnoses:Chronic obstructive pulmonary disease with acute exacerbation (HCC) [J44.1] Acute respiratory insufficiency [R06.89] Order(s):LANTUS 100 unit/mL injectionGive 22 units subq daily at 4 PM or as directedDisp: 10 mLRfl: 11 Prescriptions as of 11/14/2017 Sig: LANTUS 100 UNIT/ML SUBCUTANEO* Give 22 units subq daily at 4* POTASSIUM CHLORIDE ER 20 MEQ * TAKE 1 TABLET BY MOUTH DAILY FUROSEMIDE 40 MG TABLET TAKE 1 TABLET BY MOUTH DAILY WHEAT DEXTRIN 3 GRAM/3.8 GRAM* Stir 2 teaspoonfuls into 4-8 * CHOLECALCIFEROL (VITAMIN D3) * Take 1 capsule by mouth once * CLOZAPINE 100 MG TABLET take one tablet at noon, 2 ta* AZITHROMYCIN 250 MG TABLET Take 1 tablet by mouth once d* GLIPIZIDE 5 MG TABLET TAKE 1 TABLET TWICE A DAY ALBUTEROL SULFATE CONCENTRATE* Inhale 0.5 mL as instructed o* DOXYCYCLINE MONOHYDRATE 100 M* Take 1 capsule by mouth twice* ALBUTEROL SULFATE HFA 90 MCG/* Inhale 2 Puffs as instructed * SPIRIVA WITH HANDIHALER 18 MC* INHALE CONTENTS OF ONE CAPSUL* METFORMIN 500 MG TABLET TAKE 2 TABLETS BY MOUTH TWICE* STOOL SOFTENER 100 MG CAPSULE TAKE 1 CAPSULE TWICE A DAY LACTULOSE 10 GRAM/15 ML ORAL * Take 30 mL by mouth twice mainor* INSULIN SYRINGE-NEEDLE U-100 * 10 Units once daily. PRAVASTATIN 20 MG TABLET TAKE 1 TABLET BY MOUTH ONCE D* FLOVENT DISKUS 250 MCG/ACTUAT* INHALE ONE PUFF BY MOUTH TWIC* SPIRIVA RESPIMAT INHALATION Inhale as instructed. FIBER (PSYLLIUM HUSK) ORAL Take by mouth once daily. FISH OIL CONCENTRATE ORAL Take by mouth once daily. KEILA OIL DESVENLAFAXINE SUCCINATE ER 5* Take 50 mg by mouth once ziggy* LANCETS test BS twice daily 2 days a * RISPERIDONE 2 MG DISINTEGRATI* Take 2 mg by mouth once daily. BLOOD SUGAR DIAGNOSTIC STRIPS test BS twice daily - dx - 25* CLONAZEPAM 1 MG TABLET Take 0.5 mg Bid, 1 mg po at HS PEN NEEDLE, DIABETIC 31 GAUGE* Use one needle per dose. Once* BLOOD-GLUCOSE METER KIT Used once daily to check bloo* CHOLECALCIFEROL (VITAMIN D3) * Take 1 tablet by mouth once d* * MULTIVITAMIN ORAL Take 1 tablet by mouth once d* * RISPERIDONE MICROSPHERES 50 M* Inject 2 mL intramuscularly e* Problem List As Of Date 11/14/2017 Noted Resolved Schizophreniform disorder, chronic condition (H* Priority: Mild More... Other abnormal glucose [R73.09] Priority: A More... DM w/o Complication Type II [E11.9] INVALID FOR*02/22/2014 Priority: Moderate Gastritis [K29.70] INVALID FOR* Routine general medical examination at a health*INVALID FOR*11/26/2011 Class: Chronic More... Routine gynecological examination [Z01.419] INVALID FOR*11/26/2011 Class: Chronic More... Vitamin D deficiency [E55.9] INVALID FOR* Priority: A More... Liver Function Test Abnormality [R94.5] INVALID FOR* More... 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 Encounter for screening for malignant neoplasm *INVALID FOR* Postmenopausal bleeding [N95.0] INVALID FOR* More... Acute diastolic CHF (congestive heart failure) *INVALID FOR* More... Prescriptions ordered this encounter Disp Refills Start End LANTUS 100 UNIT/ML SUBCUTANEOUS SOLU* 11/14/2017 11/17/2017 Class: Med Update Route: SUBCUTANEOUS Sig: Inject 22 Units subcutaneously daily at bedtime. LANTUS 100 UNIT/ML SUBCUTANEOUS SOLU* 10 mL 11 11/17/2017 Sig: Give 22 units subq daily at 4 PM or as directed Medications Discontinued During This Encounter insulin glargine (LANTUS) 100 unit/m* 6 mL 11 05/08/2017 11/14/2017 Route: SUBCUTANEOUS Sig: Inject 20 Units subcutaneously daily at bedtime for 30 days. Or as directed. Disc: Reason for discontinue is not on file. LANTUS 100 unit/mL injection 07/09/2017 11/14/2017 Class: Historical Med Route: SUBCUTANEOUS Sig: Inject 20 Units subcutaneously daily at bedtime. Disc: Reason for discontinue is not on file. LANTUS 100 unit/mL injection 11/14/2017 11/17/2017 Class: Med Update Route: SUBCUTANEOUS Sig: Inject 22 Units subcutaneously daily at bedtime. Disc: Reason for discontinue is not on file. Encounter Status:Closed by ASIA BURRELL on 11/17/17 OBSOLETE Observed: 11/11/2017 Status: COMPLETED Source: [place] 12:00 AM [facility] REPOSITORY [facility] BRITTNEE LE ([id number]) 1965 F Date Time Provider Department 11/11/17 [facility] During your visit today, we recorded the following information about you: Savannah Bunch 11/12/2017 8:37 AM Signed Patient has been identified by name and date of : Yes Pending Prescriptions Disp Refills potassium chloride ER (K-DUR, KLOR-CON) 20 mEq tablet [Pharmacy Med Name: POT CHLORIDE 20MEQ ER TAB] 28 tablet Sig: TAKE 1 TABLET BY MOUTH DAILY MIGUELINA: No furosemide (LASIX) 40 mg tablet [Pharmacy Med Name: FUROSEMIDE 40MG TAB] 28 tablet Sig: TAKE 1 TABLET BY MOUTH DAILY MIGUELINA: No RX INSTRUCTIONS: Diana from the intermediate that the patient is residing in was calling to ask if the patient is still taking these two medications. She stated that the patient has only a few pills left. She may be reached at [phone]. Patient aware RX will be sent to pharmacy. No need to notify patient. Savannah Field Psr Edilia Mayer Cma 11/12/2017 10:19 AM Signed Patient has been identified by name and date of : Yes Pending Prescriptions Disp Refills POTASSIUM CHLORIDE ER 20 MEQ TABLET,EXTENDED RELEASE(PART/CRYST) 28 tablet Sig: TAKE 1 TABLET BY MOUTH DAILY MIGUELINA: Yes FUROSEMIDE 40 MG TABLET 28 tablet Sig: TAKE 1 TABLET BY MOUTH DAILY MIGUELINA: Yes RX INSTRUCTIONS: Patient aware RX will be sent to pharmacy. No need to notify patient. Last visit 11/07/17 Future visit 01/06/18 Last filled both Rx on 10/17/17 30 with 0 Edilia Chawla [employer] Allergies As of Date: 11/11/2017 (No Known Allergies) Date Reviewed: 11/07/2017 Reviewed by: Nisha Angelo Ma - Fully Assessed Reason for Visit: Refill Request [94] Order(s):potassium chloride ER (K-DUR, KLOR-CON) 20 mEq tabletTAKE 1 TABLET BY MOUTH DAILYDisp: 28 tabletRfl: 3 furosemide (LASIX) 40 mg tabletTAKE 1 TABLET BY MOUTH DAILYDisp: 28 tabletRfl: 3 Prescriptions as of 11/11/2017 Sig: POTASSIUM CHLORIDE ER 20 MEQ * TAKE 1 TABLET BY MOUTH DAILY FUROSEMIDE 40 MG TABLET TAKE 1 TABLET BY MOUTH DAILY WHEAT DEXTRIN 3 GRAM/3.8 GRAM* Stir 2 teaspoonfuls into 4-8 * CHOLECALCIFEROL (VITAMIN D3) * Take 1 capsule by mouth once * CLOZAPINE 100 MG TABLET take one tablet at noon, 2 ta* GLIPIZIDE 5 MG TABLET TAKE 1 TABLET TWICE A DAY DOXYCYCLINE MONOHYDRATE 100 M* Take 1 capsule by mouth twice* ALBUTEROL SULFATE HFA 90 MCG/* Inhale 2 Puffs as instructed * SPIRIVA WITH HANDIHALER 18 MC* INHALE CONTENTS OF ONE CAPSUL* METFORMIN 500 MG TABLET TAKE 2 TABLETS BY MOUTH TWICE* STOOL SOFTENER 100 MG CAPSULE TAKE 1 CAPSULE TWICE A DAY LACTULOSE 10 GRAM/15 ML ORAL * Take 30 mL by mouth twice mainor* INSULIN SYRINGE-NEEDLE U-100 * 10 Units once daily. LANTUS 100 UNIT/ML SUBCUTANEO* Inject 20 Units subcutaneousl* PRAVASTATIN 20 MG TABLET TAKE 1 TABLET BY MOUTH ONCE D* FLOVENT DISKUS 250 MCG/ACTUAT* INHALE ONE PUFF BY MOUTH TWIC* SPIRIVA RESPIMAT INHALATION Inhale as instructed. FIBER (PSYLLIUM HUSK) ORAL Take by mouth once daily. FISH OIL CONCENTRATE ORAL Take by mouth once daily. KEILA OIL DESVENLAFAXINE SUCCINATE ER 5* Take 50 mg by mouth once ziggy* LANCETS test BS twice daily 2 days a * RISPERIDONE 2 MG DISINTEGRATI* Take 2 mg by mouth once daily. BLOOD SUGAR DIAGNOSTIC STRIPS test BS twice daily - dx - 25* CLONAZEPAM 1 MG TABLET Take 0.5 mg Bid, 1 mg po at HS PEN NEEDLE, DIABETIC 31 GAUGE* Use one needle per dose. Once* BLOOD-GLUCOSE METER KIT Used once daily to check bloo* CHOLECALCIFEROL (VITAMIN D3) * Take 1 tablet by mouth once d* * MULTIVITAMIN ORAL Take 1 tablet by mouth once d* * RISPERIDONE MICROSPHERES 50 M* Inject 2 mL intramuscularly e* Problem List As Of Date 11/11/2017 Noted Resolved Schizophreniform disorder, chronic condition (H* Priority: Mild More... Other abnormal glucose [R73.09] Priority: A More... DM w/o Complication Type II [E11.9] INVALID FOR*02/22/2014 Priority: Moderate Gastritis [K29.70] INVALID FOR* Routine general medical examination at a [facility]*INVALID FOR*11/26/2011 Class: Chronic More... Routine gynecological examination [Z01.419] INVALID FOR*11/26/2011 Class: Chronic More... Vitamin D deficiency [E55.9] INVALID FOR* Priority: A More... Liver Function Test Abnormality [R94.5] INVALID FOR* More... 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 Encounter for screening for malignant neoplasm *INVALID FOR* Postmenopausal bleeding [N95.0] INVALID FOR* More... Acute diastolic CHF (congestive heart failure) *INVALID FOR* More... Prescriptions ordered this encounter Disp Refills Start End POTASSIUM CHLORIDE ER 20 MEQ TABLET,* 28 t* 3 11/12/2017 Cmt: Maximum Refills Reached Sig: TAKE 1 TABLET BY MOUTH DAILY FUROSEMIDE 40 MG TABLET 28 t* 3 11/12/2017 Cmt: Maximum Refills Reached Sig: TAKE 1 TABLET BY MOUTH DAILY Medications Discontinued During This Encounter potassium chloride ER (KPILO AYERS* 30 t* 0 10/17/2017 11/12/2017 Class: Med Update Route: ORAL Sig: Take 1 tablet by mouth once daily. Disc: Reason for discontinue is not on file. furosemide (LASIX) 40 mg tablet 30 t* 0 10/17/2017 11/12/2017 Class: Med Update Route: ORAL Sig: Take 1 tablet by mouth once daily. Disc: Reason for discontinue is not on file. Encounter Status:Closed by BORIS JONES MD on 11/12/17 ALLERGIES ALLERGIES DATE TYPE / CODE NAME / CODE REACTION SEVERITY SOURCE 07/22/2018 Drug No Known Unknown [facility] Allergy/416 Allergies/H64769 Hospital 647353(SNOM 0388(RXNORM) Repository ED CT) NG/[id number] NO KNOWN [facility] 6(SNOMED ALLERGIES [facility]) Repository Drug NO KNOWN [facility] Class/40600 ALLERGIES [facility] [place] 1003(SNOMED Repository CT) ENCOUNTERS ENCOUNTERS ADMIT/DISCHARGE ACCOUNT NUMBER ADMITTING ENCOUNTER LOCATION SOURCE CLASS 10/29/2018 [id number] [facility] ding:LAB Repository 10/09/2018/10/09/20 [id number] Ambulatory [address] [place] Repository 10/02/2018/10/02/20 [id number] Ambulatory [address] [place] Repository 10/02/2018/10/02/20 [id number] Ambulatory [address] [place] Repository 10/02/2018/10/02/20 [id number] Ambulatory [address] [place] Repository 10/02/2018/10/05/20 [id number] Ambulatory [address] [place] Repository 10/01/2018/10/01/[id number] ding:LAB Repository 09/22/2018 [id number] [facility] ding:WC Repository 09/09/2018/09/10/20 [id number] Ambulatory [address] [place] Repository 09/09/2018/09/09/20 [id number] Ambulatory [address] [place] Repository 09/01/2018/09/11/[id number] ding:LAB Repository 08/24/2018/09/11/[id number] ding:WC Repository 08/18/2018/08/18/20 [id number] Ambulatory [address] [place] Repository 08/14/2018/08/14/20 [id number] Ambulatory [address] Repository 08/14/2018/08/14/20 [id number] Ambulatory [address] [place] Repository 08/12/2018/08/13/20 [id number] Ambulatory [address] Repository 08/11/2018/08/12/20 [id number] Ambulatory [address] ding:WC Repository 08/06/2018/08/06/20 [id number] Ambulatory [address] Repository 08/06/2018/08/06/20 [id number] Ambulatory [address] Repository 08/06/2018/08/13/20 [id number] Ambulatory [address] Repository 08/04/2018/08/04/20 [id number] Ambulatory [address] ding:LAB Repository 07/22/2018/07/29/20 [id number] Lauro Noguera Inpatient [address] ding:TU4Qrxv Repository : WU489Ntv: 1 07/22/2018 [id number] Lauro Noguera Ambulatory BMSBuilding: [place] BMS.[facility] Repository 07/22/2018 [id number] Lauro Noguera Ambulatory BMSBuilding: [place] BMS.[facility] Repository 07/22/2018 [id number] Lauro Noguera Ambulatory BMSBuilding: [place] BMS.[facility] Repository 07/22/2018 [id number] Lauro Noguera Ambulatory BMSBuilding: [place] BMS.[facility] Repository 07/22/2018 [id number] Lauro Noguera Ambulatory BMSBuilding: [place] BMS.[facility] Repository 07/22/2018 [id number] Luaro Noguera Ambulatory BMSBuilding: [place] BMS.[facility] Repository 07/22/2018 [id number] Lauro Noguera Ambulatory BMSBuilding: [place] BMS.[facility] Repository 07/22/2018 [id number] Lauro Noguera Ambulatory BMSBuilding: [place] BMS.[facility] Repository 07/22/2018/07/29/20 [id number] Ambulatory BMSBuilding: Ada [facility] Repository 07/22/2018 [id number] Ambulatory BMSBuilding: [place] BMS.[facility] Repository 07/21/2018/07/21/20 [id number] Ambulatory [place] [address] [place] [address] ding:PT Repository 07/21/2018/07/22/20 [id number] Ambulatory [address] [place] Repository 07/20/2018/07/21/20 [id number] Ambulatory [address] [place] Repository 07/18/2018/07/18/20 [id number] Emergency [place] Silver[address] ding:ED Repository 07/17/2018/08/20/20 [id number] Ambulatory [address] [place] Repository 07/17/2018/07/20/20 [id number] Ambulatory [address] [place] Repository 07/07/2018/07/07/20 [id number] Ambulatory Silver Silver [address] [place] [address] ding:LAB Repository 07/02/2018/07/03/20 [id number] Ambulatory [address] [place] Repository 06/17/2018/06/17/20 [id number] Ambulatory [address] [place] Repository 06/09/2018/06/09/20 [id number] Ambulatory [place] [address] [place] [address] ding:LAB Repository 06/08/2018/06/09/20 [id number] Ambulatory [address] [place] Repository 06/08/2018/06/09/20 [id number] Ambulatory [address] [place] Repository 06/08/2018 [id number] Ambulatory [facility] MEDICAL Repository CENTERBuildi ng:CAGWS 05/12/2018/05/12/20 [id number] Ambulatory [place] ding:LAB Repository 04/30/2018/04/30/20 [id number] Ambulatory [address] [place] Repository 04/30/2018 [id number] [facility] 04/29/2018/05/01/20 [id number] Ambulatory [address] [place] Repository 04/08/2018 [id number] [facility] Rep[facility] 04/08/2018/04/08/20 [id number] Ambulatory [address] [place] Repository 03/19/2018 [id number] [facility] 03/16/2018 [id number] [facility] Rep[facility] 03/16/2018/03/16/20 [id number] Ambulatory [address] [place] Repository 03/16/2018 [id number] Ambulatory [facility] [place] Repository 03/16/2018/03/20/20 [id number] Ambulatory [address] [place] Repository 03/11/2018/03/12/20 [id number] Ambulatory [address] [place] Repository 03/05/2018/03/05/20 [id number] Ambulatory [address] [place] Repository 02/19/2018/02/20/20 [id number] Ambulatory [place] ding:LAB Repository 02/17/2018/02/18/20 [id number] Ambulatory [address] [place] Repository 02/08/2018/02/09/20 [id number] Emergency Silver Silver[address] ding:ED Repository 02/08/2018/02/13/20 [id number] Ambulatory [address] [place] Repository 01/22/2018/01/23/20 [id number] Ambulatory [place] [address] [place] [address] ding:LAB Repository 01/20/2018 [id number] [facility] Rep[facility] 01/20/2018/01/21/20 [id number] Ambulatory [address] [place] Repository 01/13/2018/01/14/20 [id number] Ambulatory [address] [place] Repository 01/06/2018/01/08/20 [id number] Ambulatory [address] [place] Repository 12/25/2017/12/26/19 [id number] Ambulatory Silver Silver [address] [place] [address] ding:LAB Repository 12/08/2017/12/13/19 [id number] Ambulatory [address] Repository 11/27/2017 [id number] Ambulatory [facility] ding:LABSPEC Repository 11/27/2017/11/27/19 [id number] Ambulatory [address] Repository 11/27/2017/11/27/19 [id number] Ambulatory [address] [place] Repository 11/27/2017/11/27/19 [id number] Ambulatory [address] MEDICAL Repository CENTERBuildi ng:CAGWS 11/25/2017/11/25/19 [id number] Ambulatory [address] ding:LAB Repository 2017 [id number] [facility] ding:LABSPEC Repository 11/24/2017/11/24/19 [id number] Ambulatory [address] Repository PAYERS PAYERS ENCOUNTER GUARANTOR PAYER SUBSCRIBER SOURCE 10/29/2018 BRITTNEE [place] Primary BRITTNEE [address] Insurance:SUM[place] CARE [place]RAMERB: [place], MEDICAREPolicy [id number] [facility] [place] [address]Iko: Number: Repository [id number] (HP) Date:2681-11-49QO [address] [address]DM: 10/29/2018 Secondary BRITTNEE Shawanda [place] Insurance:MEDICAIDPol KRAMERDOB: [facility] Number: [id number] Hospital [id number] Repository Date:2017-11-14 10/29/2018 Tertiary NOT GIVENCARLOS [place] Insurance:SELF PAY [facility] Number: Effective Repository Date:2018-10-12 10/01/2018 BRITTNEE [place] Primary BRITTNEE [address] Insurance:SUMMA CARE KRAMERB: Community [place], MEDICAREPolicy [id number] [place] [address]Rbo: Number: Repository [id number] (HP) Date:1857-56-84RH [address] [address]FB: 10/01/2018 Secondary BRITTNEE [place] Insurance:MEDICAIDPol KRAMERDOB: Community icy Number: [id number] Hospital [id number] Repository Date:2017-11-14 10/01/2018 Tertiary NOT GIVENUNK [place] Insurance:SELF PAY [facility] Number: Effective Repository Date:2018-09-14 09/22/2018 BRITTNEE [place] Primary BRITTNEE [address] Insurance:SUMMA CARE KRAMERDOB: Community [place], MEDICAREPolicy [id number] [address]Frp: Number: Repository [id number] (HP) Date:5770-40-41KN [address] [place] [address]PY: 09/22/2018 Secondary BRITTNEE [place] Insurance:MEDICAIDPol KRAMERDOB: [facility] icy Number: [id number] Hospital [id number] Repository Date:2018-08-07 09/22/2018 Tertiary NOT GIVENUNK [place] Insurance:SELF PAY [facility] Number: Effective Repository Date:2018-09-12 09/01/2018 BRITTNEE [place] Primary BRITTNEE [address] Insurance:SUMMA CARE KRAMERDOB: Community [place], MEDICAREPolicy [id number] [facility] [address]Mca: Number: Repository [id number] (HP) Date:2190-20-16JT [address] [address]QP: 09/01/2018 Secondary BRITTNEE [place] Insurance:MEDICAIDPol KRAMERDOB: [facility] icy Number: [id number] Hospital [id number] Repository Date:2017-11-14 09/01/2018 Tertiary NOT GIVENUNK [place] Insurance:SELF PAY [facility] Number: Effective Repository Date:2018-08-13 08/24/2018 BRITTNEE [place] Primary BRITTNEE [address] Insurance:SUMMA CARE KRAMERDOB: Community [place], MEDICAREPolicy [id number] Kaseman Hospital [address]Dbp: Number: Repository [id number] (HP) Date:6297-27-54SC [address] [place] [address]VK: 08/24/2018 Secondary BRITTNEE [place] Insurance:MEDICAIDPol KRAMERDOB: Community icy Number: [id number] Hospital [id number] Repository Date:2018-08-07 08/24/2018 Tertiary NOT GIVENUNK [place] Insurance:SELF PAY [facility] Number: Effective Repository Date:2018-08-13 08/11/2018 BRITTNEE [place] Primary BRITTNEE [address] Insurance:SUMMA CARE KRAMERDOB: Community [place], MEDICAREPolicy [id number] Kaseman Hospital [address]Zre: Number: Repository [id number] (HP) Date:3177-90-44NC [address] [place] [address]MA: 08/11/2018 Secondary BRITTNEE [place] Insurance:MEDICAIDPol KRAMERDOB: [facility] icy Number: [id number] Hospital [id number] Repository Date:2018-08-07 08/11/2018 Tertiary NOT GIVENUNK [place] Insurance:SELF PAY [facility] Number: Effective Repository Date:2018-08-07 08/04/2018 BRITTNEE [place] Primary BRITTNEE [address] Insurance:SUMMA CARE KRAMERDOB: Community [place], MEDICAREPolicy [id number] Kaseman Hospital [address]Aax: Number: Repository [id number] (HP) Date:2400-21-60LR [address] [place] [address]JZ: 08/04/2018 Secondary BRITTNEE [place] Insurance:MEDICAIDPol KRAMERDOB: [facility] icy Number: [id number] Hospital [id number] Repository Date:2017-11-14 08/04/2018 Tertiary NOT GIVENUNK [place] Insurance:SELF PAY [facility] Number: Effective Repository Date:2018-07-15 07/22/2018 BRITTNEE [place] Primary BRITTNEE [place] [id number] [address] Insurance:SUMMA CARE KRAMERDOB: Community [place], MEDICAREPolicy [id number] [place] [address]Swo: Number: Repository [id number] (HP) Date:0514-06-36SN [address] [address]NR: 07/22/2018 Secondary BRITTNEE [place] Insurance:MEDICAIDPol KRAMERDOB: [facility] icy Number: [id number] Hospital [id number] Repository Date:2018-07-22 07/22/2018 Tertiary NOT GIVENUNK [place] Insurance:SELF PAY [facility] Number: Effective Repository Date:2018-07-22 07/22/2018 BRITTNEE [place] Primary BRITTNEE [place] [id number] [address] Insurance:SUMMA CARE KRAMERDOB: Community [place], MEDICAREPolicy [id number] Kaseman Hospital [address]Wga: Number: Repository [id number] (HP) Date:8591-59-37HV [address] [address]RA: 07/22/2018 Secondary BRITTNEE [place] Insurance:MEDICAIDPol KRAMERDOB: [facility] icy Number: [id number] Hospital [id number] Repository Date:2018-07-22 07/22/2018 Tertiary NOT GIVENUNK [place] Insurance:SELF PAY [facility] Number: Effective Repository Date:2018-07-22 07/22/2018 BRITTNEE [place] Primary BR[place]TNEE [place] [id number] [address] Insurance:SUMMA CARE KRAMERDOB: Community [place], MEDICAREPolicy [id number] Kaseman Hospital [address]Ssl: Number: Repository [id number] (HP) Date:0040-79-82SR [address] [address]QD: 07/22/2018 Secondary BRITTNEE [place] Insurance:MEDICAIDPol KRAMERDOB: [facility] icy Number: [id number] Hospital [id number] Repository Date:2018-07-22 07/22/2018 Tertiary NOT GIVENUNK [place] Insurance:SELF PAY [facility] Number: Effective Repository Date:2018-07-22 07/22/2018 BRITTNEE [place] Primary BR[place]TNEE [place] [id number] [address] Insurance:SUMMA CARE KRAMERDOB: Community [place], MEDICAREPolicy [id number] Kaseman Hospital [address]Kdj: Number: Repository [id number] (HP) Date:6563-39-84MZ [address] [place] [address]RP: 07/22/2018 Secondary BRITTNEE [place] Insurance:MEDICAIDPol KRAMERDOB: [facility] icy Number: [id number] Hospital [id number] Repository Date:2018-07-22 07/22/2018 Tertiary NOT GIVENUNK [place] Insurance:SELF PAY [facility] Number: Effective Repository Date:2018-07-22 07/22/2018 BRITTNEE [place] Primary BRITTNEE [place] [id number] [address] Insurance:SUMMA CARE KRAMERDOB: Community [place], MEDICAREPolicy [id number] Kaseman Hospital [address]Ttc: Number: Repository [id number] (HP) Date:0163-74-53HU [address] [place] [address] 314[address]XR: 07/22/2018 Secondary BRITTNEE [place] Insurance:MEDICAIDPol KRAMERDOB: [facility] icy Number: [id number] Hospital [id number] Repository Date:2018-07-22 07/22/2018 Tertiary NOT GIVENUNK [place] Insurance:SELF PAY [facility] Number: Effective Repository Date:2018-07-22 07/22/2018 BRITTNEE [place] Primary BRITTNEE [address] Insurance:SUMMA CARE KRAMERDOB: Community [place], MEDICAREPolicy [id number] Kaseman Hospital [address]Sxr: Number: Repository [id number] (HP) Date:6656-88-06HL [address] [place] [address]UP: 07/22/2018 Secondary BRITTNEE [place] Insurance:MEDICAIDPol KRAMERDOB: Community icy Number: [id number] Hospital [id number] Repository Date:2018-07-22 07/22/2018 Tertiary NOT GIVENUNK [place] Insurance:SELF PAY [facility] Number: Effective Repository Date:2018-07-22 07/22/2018 BRITTNEE [place] Primary BR[place]TNEE [place] [id number] [address] Insurance:SUMMA CARE KRAMERDOB: Community [place], MEDICAREPolicy [id number] [place] [address]Xxo: Number: Repository [id number] (HP) Date:6614-15-02WY [address] [place] [address] 60[address]KL: 07/22/2018 Secondary BRITTNEE [place] Insurance:MEDICAIDPol KRAMERDOB: [facility] icy Number: [id number] Hospital [id number] Repository Date:2018-07-22 07/22/2018 Tertiary NOT GIVENUNK [place] Insurance:SELF PAY [facility] Number: Effective Repository Date:2018-07-22 07/22/2018 BRITTNEE [place] Primary BRITTNEE [place] [id number] [address] Insurance:SUMMA CARE KRAMERDOB: Community [place], MEDICAREPolicy [id number] [place] [address]Apo: Number: Repository [id number] (HP) Date:4096-12-55UI [facility] [address] [place] [address] 36606TY: 07/22/2018 Secondary BRITTNEE [place] Insurance:MEDICAIDPol KRAMERDOB: [facility] icy Number: [id number] Hospital [id number] Repository Date:2018-07-22 07/22/2018 Tertiary NOT GIVENUNK [place] Insurance:SELF PAY [facility] Number: Effective Repository Date:2018-07-22 07/22/2018 BRITTNEE [place] Primary BRITTNEE [place] [id number] Insurance:SUMMA CARE KRAMERDOB: Community [place], MEDICAREPolicy [id number] [place] [address]Uua: Number: Repository [id number] (HP) Date:5610-88-03LZ [address] [place] [address] 38[address]DM: 07/22/2018 Secondary BRTITNEE [place] Insurance:MEDICAIDPol KRAMERDOB: Community icy Number: [id number] Hospital [id number] Repository Date:2018-07-22 07/22/2018 Tertiary NOT GIVENUNK [place] Insurance:SELF PAY [facility] Number: Effective Repository Date:2018-07-22 07/22/2018 BRITTNEE [place] Primary BRITTNEE [address] Insurance:SUMMA CARE KRAMERDOB: Community [place], MEDICAREPolicy [id number] Kaseman Hospital [address]Mvt: Number: Repository [id number] (HP) Date:6594-32-31GS [address] [address]CU: 07/22/2018 Secondary BR[place]TNEE [place] Insurance:MEDICAIDPol KRAMERDOB: [facility] icy Number: [id number] Hospital [id number] Repository Date:2018-07-22 07/22/2018 Tertiary NOT GIVENUNK [place] Insurance:SELF PAY [facility] Number: Effective Repository Date:2018-07-22 07/22/2018 BRITTNEE [place] Primary BRITTNEE [address] Insurance:SUMMA CARE KRAMERDOB: Community [place], MEDICAREPolicy [id number] Kaseman Hospital [address]Uce: Number: Repository [id number] (HP) Date:5913-86-31IV [address] [address]NE: 07/22/2018 Secondary BR[place]TNEE [place] Insurance:MEDICAIDPol KRAMERDOB: [facility] icy Number: [id number] Hospital [id number] Repository Date:2018-07-22 07/22/2018 Tertiary NOT GIVENUNK [place] Insurance:SELF PAY [facility] Number: Effective Repository Date:2018-07-22 07/21/2018 Brittnee [place] Primary Brittnee [address] Insurance:SUMMA CARE [place]ramerDOB: [place] MED[place] [id number] Kaseman Hospital [address]Uyl: Number: Repository [id number] (HP) Date:2896-54-31SX [address] [place] [address] 474[address]XV: 07/21/2018 Secondary BRITTNEE [place] Insurance:MEDICAIDPol KRAMERDOB: Community icy Number: [id number] Hospital [id number] Repository Date:2018-05-12 07/21/2018 Tertiary NOT GIVENUNK [place] Insurance:SELF PAY [facility] Number: Effective Repository Date:2018-05-12 07/18/2018 Brittnee [place] Primary Brittnee [place] [id number] Insurance:SUMMA CARE [place]ramerDOB: [place] [id number] [facility]eman Hospital [address]Hlo: Number: Repository [id number] (HP) Date:9798-02-71YO [address] [place] [address] 98[address]RJ: 07/18/2018 Secondary BRITTNEE [place] Insurance:MEDICAIDPol KRAMERDOB: Community icy Number: [id number] Hospital [id number] Repository Date:2018-07-18 07/18/2018 Tertiary NOT GIVENUNK [place] Insurance:SELF PAY [facility] Number: Effective Repository Date:2018-07-18 07/07/2018 Brittnee [place] Primary Brittnee [address] Insurance:SUMMA CARE [place]ramerDOB: [place], MED[place] [id number] Kaseman Hospital [address]Ies: Number: Repository [id number] (HP) Date:0558-63-50CA [address], [place] [address]FT: 07/07/2018 Secondary BRITTNEE [place] Insurance:MEDICAIDPol KRAMERDOB: Community icy Number: [id number] Hospital [id number] Repository Date:2017-11-14 07/07/2018 Tertiary NOT GIVENUNK [place] Insurance:SELF PAY [facility] Number: Effective Repository Date:2018-06-16 06/09/2018 Brittnee Mayberry Primary Brittnee Sheppard [id number] [address] Insurance:[place] [id number] [address]Tfo: Number: Repository [id number] (HP) Date:8270-78-13TG [address] [place] [address] 30880DN: 06/09/2018 Secondary BRITTNEE Sheppard Insurance:MEDICAIDPol KRAMERDOB: [facility] icy Number: [id number] Hospital [id number] Repository Date:2017-11-14 06/09/2018 Tertiary NOT GIVENUNK Ada Insurance:SELF PAY [facility] Number: Effective Repository Date:2018-05-14 06/08/2018 BRITTNEE Shawanda Primary Insurance:IL BRITTNEE Mayberry [facility] KRAMERDOB[facility]RAMERD[facility] Number: [id number] Repository [facility] [id number] [place], [place] Date: [address]Skp: (HP) 06/08/2018 Secondary BRITTNEE [facility] Insurance:[place] KRAMERDOB: Health System MEDICAIDPolicy [id number] Repository Number: [id number] Date: 05/12/2018 Brittnee Mayberry Primary Brittnee Sheppard [id number] Insurance:SUM[place] CARE [place] [id number] [address]Tjc: Number: Repository [id number] (HP) Date:5881-67-75SQ [address] [place] [address] 46010TO: 05/12/2018 Secondary BRITTNEE Sheppard Insurance:MEDICAIDPol KRAMERDOB: [facility] icy Number: [id number] Hospital [id number] Repository Date:2017-11-14 05/12/2018 Tertiary NOT GIVENUNK Silver Insurance:SELF PAY [facility] Number: Effective Repository Date:2018-03-12 04/30/2018 Brittnee Shawanda Primary Brittnee Sheppard [id number] Insurance:SUMMA CARE [place], MED[place]AREPolicy [id number] [place] [address]Eta: Number: Repository [id number] (HP) Date:9337-28-85RA [address], [place] [address]DZ: 04/30/2018 Secondary BRITTNEE Sheppard Insurance:MEDICAIDPol KRAMERDOB: Community icy Number: [id number] Hospital [id number] Repository Date:2018-04-30 04/30/2018 Tertiary NOT GIVENUNK Silver Insurance:SELF PAY [facility] Number: Effective Repository Date:2018-04-30 04/08/2018 Brittnee Mayberry Primary Brittnee Le[address] Insurance:SUMMA CARE [place], [place] [id number] [address]Uje: Number: Repository [id number] (HP) Date:2495-50-57KA [address] JENNIE [place]JAS[place], [place] [address]QX: 04/08/2018 Secondary BRITTNEE Sheppard Insurance:MEDICAIDPol KRAMERDOB: Community icy Number: [id number] Hospital [id number] Repository Date:2018-04-08 04/08/2018 Tertiary NOT GIVENUNK Silver Insurance:SELF PAY [facility] Number: Effective Repository Date:2018-04-08 03/19/2018 Brittnee Mayberry Primary Brittnee Le[address] Insurance:SUMMA CARE [place], MED[place]AREPolicy [id number] [address]Ztj: Number: Repository [id number] (HP) Date:7216-41-51WJ [address] [place] [address]402KZ: 03/19/2018 Secondary BRITTNEE Sheppard Insurance:MEDICAIDPol KRAMERDOB: Community icy Number: [id number] Hospital [id number] Repository Date:2018-03-19 03/19/2018 Tertiary NOT GIVENUNK Ada Insurance:SELF PAY [facility] Number: Effective Repository Date:2018-03-19 03/16/2018 Brittnee Mayberry Primary Brittnee Sheppard [id number] [address] Insurance:SUMMA CARE [place], MED[place]AREPolicy [id number] Kaseman Hospital [address]Dsb: Number: Repository [id number] (HP) Date:5875-87-95YV [address] [place] [address] 497[address]FA: 03/16/2018 Secondary BRITTNEE Sheppard Insurance:MEDICAIDPol KRAMERDOB: [facility] icy Number: [id number] Hospital [id number] Repository Date:2018-03-19 03/16/2018 Tertiary NOT GIVENUNK Silver Insurance:SELF PAY [facility] Number: Effective Repository Date:2018-03-16 02/19/2018 Brittnee Mayberry Primary Brittnee Le562 E Insurance:SUMMA CARE [place], MEDICAREPolicy [id number] [place] [address]Yop: Number: Repository [id number] (HP) Date:0186-58-21NM [address] [place] [address] 31088HP: 02/19/2018 Secondary BRITTNEE Sheppard Insurance:MEDICAIDPol KRAMERDOB: [facility] icy Number: [id number] Hospital [id number] Repository Date:2017-11-14 02/19/2018 Tertiary NOT GIVENUNK Silver Insurance:SELF PAY [facility] Number: Effective Repository Date:2018-02-10 02/08/2018 Brittnee Mayberry Primary Brittnee Sheppard [id number] Insurance:SUMMA CARE [place], MEDICAREPolicy [id number] [place] [address]Inu: Number: Repository [id number] (HP) Date:6366-75-38UX [address] [place] [address] 95[address]GC: 02/08/2018 Secondary BRITTNEE Sheppard Insurance:MEDICAIDPol KRAMERDOB: [facility] icy Number: [id number] Hospital [id number] Repository Date:2018-02-08 02/08/2018 Tertiary NOT GIVENUNK Silver Insurance:SELF PAY [facility] Number: Effective Repository Date:2018-02-08 01/22/2018 Brittnee Mayberry Primary Brittnee Le562 E Insurance:SUMMA CARE [place], MEDIC[place]Policy [id number] [place] [address]Sao: Number: Repository [id number] (HP) Date:5506-08-72FN [address] [address]BG: 01/22/2018 Secondary BRITTNEE Sheppard Insurance:MEDICAIDPol KRAMERDOB: [facility] icy Number: [id number] Hospital [id number] Repository Date:2017-11-14 01/22/2018 Tertiary NOT GIVENUNK Ada Insurance:SELF PAY [facility] Number: Effective Repository Date:2018-01-12 01/20/2018 Brittnee Mayberry Primary Brittnee Le[address] E Insurance:SUMMA CARE [place], MED[place] [id number] [place] [address]Kbe: Number: Repository [id number] (HP) Date:1204-33-26YF [address] [address]QO: 01/20/2018 Secondary BRITTNEE Sheppard Insurance:MEDICAIDPol KRAMERDOB: [facility] icy Number: [id number] Hospital [id number] Repository Date:2018-01-20 01/20/2018 Tertiary NOT GIVENUNK Ada Insurance:SELF PAY [facility] Number: Effective Repository Date:2018-01-20 12/25/2017 Brittnee Mayberry Primary Brittnee Le562 E Insurance:SUM[place] CARE [place], MED[place] [id number] [place] [address]Szf: Number: Repository [id number] (HP) Date:2417-37-73QZ [address] [place] [address]25[address]NH: 12/25/2017 Secondary BRITTNEE Sheppard Insurance:MEDICAIDPol KRAMERDOB: [facility] Number: [id number] Hospital [id number] Repository Date:2017-11-14 12/25/2017 Tertiary NOT GIVENUNK Ada Insurance:SELF PAY [facility] Number: Effective Repository Date:2017-12-11 11/27/2017 Brittnee Mayberry Primary Brittnee Sheppard [id number] [address] Insurance:SUMMA CARE [place], MEDICAREPolicy [id number] [place] [address]Fof: Number: Repository [id number] (HP) Date:5745-15-19CX [address] [place] [address]WX: 11/27/2017 Secondary BRITTNEE Mayberry Silver Insurance:MEDICAIDPol KRAMERDOB: [facility] Number: [id number] Hospital [id number] Repository Date:2017-11-27 11/27/2017 Tertiary NOT GIVENUNK Silver Insurance:SELF PAY [facility] Number: Effective Repository Date:2017-11-27 11/27/2017 BRITTNEE Mayberry Primary Insurance:IL BRITTNEE Shawanda [facility] KRAMERDOB[facility] KRAMERB: [facility] Number: [id number] Repository [facility] [id number] [place] Date: [address]Hqm: (HP) 11/27/2017 Secondary BRITTNEE [facility] Insurance:[place] KRAMERDOB: [facility] [id number] Repository Number: [id number] Date: 11/25/2017 Brittnee Mayberry Primary Brittnee Sheppard [id number] [address] Insurance:SUMMA CARE [place], MEDICAREPolicy [id number] Hospital [place] [address]Xbv: Number: Repository [id number] (HP) Date:8301-28-80GK [address] [place] [address] 66[address]DB: 11/25/2017 Secondary BRITTNEE Sheppard Insurance:MEDICAIDPol KRAMERDOB: Community icy Number: [id number] Hospital [id number] Repository Date:2017-11-14 11/25/2017 Tertiary NOT GIVENCARLOS Sheppard Insurance:SELF PAY [facility] Number: Effective Repository Date:2017-11-14 2017 Brittnee Mayberry Primary Brittnee Sheppard [id number] Insurance:SUMMA CARE [place], MEDICAREPolicy [id number] [facility] [address]Dam: Number: Repository [id number] (HP) Date:6517-25-96SK [address] [address]KC: 2017 Secondary BRITTNEE Sheppard Insurance:MEDICAIDPol KRAMERDOB: Community icy Number: [id number] Hospital [id number] Repository Date:2017 2017 Tertiary NOT GIVENCARLOS Sheppard Insurance:SELF PAY [facility] Number: Effective Repository Date:2017
== END 2018-10-29 10:18 | disposition home or self-care (01) ==
LOC: LAB 09:18
PROVIDERS: Family Provider Family Medicine; PCP Family Medicine; Referring Provider Psychiatry & Neurology Psychiatry; Visit Provider Psychiatry & Neurology Psychiatry
DX: Z79.899 Other long term (current) drug therapy (principal)
CPT/HCPCS: 36415; 85025

== ENCOUNTER 2018-11-24 09:00 | Outpatient (RCR) | payer MEDICARE, MEDICAID, SELFPAY ==
[2018-11-24 09:49] LABS: Absolute Lymphocyte Count 2.07 X10^3/ul (0.83-4.51); Absolute Neutrophil Count 4.2 X10^3/uL (2.0-7.7); Basophil# 0.01 X10^3/uL; Basophil% 0.1 % (0-1); Eosinophil# 0.01 X10^3/uL; Eosinophils% 0.1 % (0-5); Hematocrit 42.2 % (37-47); Hemoglobin 13.2 g/dl (12.0-15.0); Lymphocyte # 2.07 X10^3/ul (4.0); Lymphocyte % 30.4 % (19-41); Mean Corp Hgb Conc 31.3 g/gl (32-36); Mean Corpuscular Hgb 28.8 pg (27.0-32.0); Mean Corpuscular Volume 92.1 fL (81-99); Mean Platelet Vol. 10.1 fl (6.2-12.0); Monocyte# 0.53 X10^3/uL; Monocyte% 7.8 % (0-10); Neutrophil # 4.17 X10^3/uL (2.7-7.7); Neutrophil % 61.5 % (47-70); Platelet Count 191 K/mm3 (150-450); RBC Distribution Width CV 14.1 % (11.6-14.6); RBC Distribution Width SD 46.4 fl (35.1-43.9); Red Blood Count 4.58 M/mm3 (4.2-5.4); White Blood Count 6.8 K/mm3 (4.4-11.0)
[2018-11-24 09:53] LABS: POSITIVE COUNT NO; POSITIVE DIFFERENTIAL NO; POSITIVE MORPHOLOGY NO
== END 2018-12-10 13:57 | disposition home or self-care (01) ==
LOC: LAB 09:00
PROVIDERS: Family Provider Family Medicine; PCP Family Medicine; Referring Provider Psychiatry & Neurology Psychiatry; Visit Provider Psychiatry & Neurology Psychiatry
DX: Z79.899 Other long term (current) drug therapy (principal)
CPT/HCPCS: 36415; 85025

== ENCOUNTER 2018-12-22 08:49 | Outpatient (RCR) | payer MEDICARE, MEDICAID, SELFPAY ==
[2018-12-22 10:07] LABS: Absolute Lymphocyte Count 2.12 X10^3/ul (0.83-4.51); Absolute Neutrophil Count 6.5 X10^3/uL (2.0-7.7); Basophil# 0.02 X10^3/uL; Basophil% 0.2 % (0-1); Differential Indicated SCAN CRITERIA MET; Hematocrit 41.3 % (37-47); Hemoglobin 13.2 g/dl (12.0-15.0); Lymphocyte # 2.12 X10^3/ul (4.0); Lymphocyte % 23.2 % (19-41); Mean Corpuscular Hgb 29.1 pg (27.0-32.0); Mean Platelet Vol. 10.6 fl (6.2-12.0); Monocyte# 0.46 X10^3/uL; Neutrophil # 6.53 X10^3/uL (2.7-7.7); Neutrophil % 71.4 % (47-70); POSITIVE COUNT NO; POSITIVE DIFFERENTIAL NO; POSITIVE MORPHOLOGY YES; Platelet Count 188 K/mm3 (150-450); RBC Distribution Width CV 14.1 % (11.6-14.6); RBC Distribution Width SD 46.5 fl (35.1-43.9); Red Blood Count 4.54 M/mm3 (4.2-5.4); White Blood Count 9.2 K/mm3 (4.4-11.0)
[2018-12-22 10:58] LABS: Atypical Lymphocyte RARE %
== END 2018-12-22 10:00 | disposition home or self-care (01) ==
LOC: LAB 08:49
PROVIDERS: Family Provider Family Medicine; PCP Family Medicine; Referring Provider Psychiatry & Neurology Psychiatry; Visit Provider Psychiatry & Neurology Psychiatry
DX: F19.10 Other psychoactive substance abuse, uncomplicated (principal); F20.0 Paranoid schizophrenia; Z79.899 Other long term (current) drug therapy
CPT/HCPCS: 36415; 85025

== ENCOUNTER 2019-01-19 09:43 | Outpatient (RCR) | payer MEDICARE, MEDICAID, SELFPAY ==
[2019-01-19 11:06] LABS: Absolute Lymphocyte Count 2.23 X10^3/ul (0.83-4.51); Absolute Neutrophil Count 5.3 X10^3/uL (2.0-7.7); Basophil# 0.01 X10^3/uL; Basophil% 0.1 % (0-1); Hematocrit 40.7 % (37-47); Hemoglobin 13.3 g/dl (12.0-15.0); Lymphocyte # 2.23 X10^3/ul (4.0); Lymphocyte % 27.7 % (19-41); Mean Corp Hgb Conc 32.7 g/gl (32-36); Mean Corpuscular Hgb 28.9 pg (27.0-32.0); Mean Corpuscular Volume 88.5 fL (81-99); Mean Platelet Vol. 10.8 fl (6.2-12.0); Monocyte% 6.2 % (0-10); Neutrophil # 5.29 X10^3/uL (2.7-7.7); Neutrophil % 65.8 % (47-70); Platelet Count 212 K/mm3 (150-450); RBC Distribution Width CV 14.2 % (11.6-14.6); RBC Distribution Width SD 45.6 fl (35.1-43.9); White Blood Count 8.1 K/mm3 (4.4-11.0)
[2019-01-19 11:07] LABS: POSITIVE COUNT NO; POSITIVE DIFFERENTIAL NO; POSITIVE MORPHOLOGY NO
== END 2019-02-09 16:00 | disposition home or self-care (01) ==
LOC: LAB 09:43
PROVIDERS: Family Provider Family Medicine; PCP Family Medicine; Referring Provider Psychiatry & Neurology Psychiatry; Visit Provider Psychiatry & Neurology Psychiatry
DX: Z79.899 Other long term (current) drug therapy (principal)
CPT/HCPCS: 36415; 85025

== ENCOUNTER 2019-02-16 08:33 | Outpatient (RCR) | payer MEDICARE, MEDICAID, SELFPAY ==
[2019-02-16 09:25] LABS: Absolute Lymphocyte Count 2.58 X10^3/ul (0.83-4.51); Absolute Neutrophil Count 5.7 X10^3/uL (2.0-7.7); Basophil# 0.02 X10^3/uL; Basophil% 0.2 % (0-1); Differential Indicated SCAN CRITERIA MET; Hematocrit 42.2 % (37-47); Hemoglobin 13.6 g/dl (12.0-15.0); Lymphocyte # 2.58 X10^3/ul (4.0); Lymphocyte % 28.8 % (19-41); Mean Corp Hgb Conc 32.2 g/gl (32-36); Mean Corpuscular Hgb 28.5 pg (27.0-32.0); Mean Corpuscular Volume 88.5 fL (81-99); Mean Platelet Vol. 10.5 fl (6.2-12.0); Monocyte# 0.68 X10^3/uL; Monocyte% 7.6 % (0-10); Neutrophil # 5.66 X10^3/uL (2.7-7.7); Neutrophil % 63.1 % (47-70); POSITIVE COUNT NO; POSITIVE DIFFERENTIAL NO; POSITIVE MORPHOLOGY YES; Platelet Count 207 K/mm3 (150-450); RBC Distribution Width CV 14.5 % (11.6-14.6); RBC Distribution Width SD 46.4 fl (35.1-43.9); Red Blood Count 4.77 M/mm3 (4.2-5.4)
== END 2019-02-16 10:00 | disposition home or self-care (01) ==
LOC: LAB 08:33
PROVIDERS: Family Provider Family Medicine; PCP Family Medicine; Referring Provider Psychiatry & Neurology Psychiatry; Visit Provider Psychiatry & Neurology Psychiatry
DX: Z79.899 Other long term (current) drug therapy (principal)
CPT/HCPCS: 36415; 85025

== ENCOUNTER → 2019-02-18 12:57 | Outpatient (CLI) | payer MEDICARE, MEDICAID, SELFPAY ==
--- NOTE | 2019-02-18 13:00 | CT_ITS ---
STUDY: LOW DOSE CT LUNG CANCER SCREENING REASON FOR EXAM: Female, 53 years old. RADIATION DOSAGE (If Supplied By Facility): CTDIvol = ( 4.02 ) mGy, DLP = ( 121.56 ) mGycm TECHNIQUE: No contrast was administered. Low dose technique was utilized (average mAS-38 and kVp 120). 1.25 mm axial source images with a slice interval of 1.25-mm were reconstructed in lung windows. 2.5 mm axial source images with a slice interval of 2.5-mm were reconstructed in lung windows. 5.0 mm axial source images with a slice interval of 5.0-mm were reconstructed in soft tissue windows. Nodule measured using lung windows on PACS and/or independent workstation with automated measurement of minimum and maximum diameter. Nodule measurement reported as average diameter rounded to the nearest whole number. Growth is defined as an increase ins size of greater than 1.5 mm. COMPARISON: None. NODULES: Subsegmental atelectasis are noted in the right and left lung bases. There is no demonstrated pleural abnormality. Normal heart and pericardium. Normal mediastinum. Normal hilar regions. Normal unenhanced pulmonary arteries. Normal aorta arch and descending thoracic aorta. There are multi-level degenerative changes of the thoracic spine. There is no demonstrated abnormality of the visualized upper abdomen. CT/Low Dose CT Lung Screening IMPRESSION: Lung-RADS category 2. Benign findings. Recommendation: Routine screening CT scan in one year. IMPORTANT NOTES FOR USE: ACR Lung-RADS Version 1.0 Assessment Categories Release Date: February 07, 2014 Category: Coded 0-4 bases on nodule(s) with highest degree of suspicion. Negative screen is defined as categories 1 and 2; a positive screen is defined as categories 3 and 4. Category 3 and 4A nodules that are unchanged on interval CT should be coded as category 2, and individuals returned to screening in 12 months. Category 4X: Category 3 or 4 nodules with additional imaging findings that increase the suspicion of lung cancer, such as spiculation, GGN that doubles in size in 1 year, enlarged lymph notes, etc. Category Modifiers: S (significant finding unrelated to lung cancer) and C (prior history of treated lung cancer) may be added to the 0-4 Lung-RADS Electronically Signed: Heather Nichole, at 8:26 EDT Tel , Service support ,
== END ==
PROVIDERS: Family Provider Family Medicine; PCP Family Medicine; Referring Provider Internal Medicine Pulmonary Disease; Visit Provider Internal Medicine Pulmonary Disease
DX: Z12.2 Encounter for screening for malignant neoplasm of respiratory organs (principal); Z87.891 Personal history of nicotine dependence; R60.0 Localized edema
CPT/HCPCS: G0297

== ENCOUNTER → 2019-03-12 13:56 | Outpatient (CLI) | payer MEDICARE, MEDICAID, SELFPAY ==
[2019-03-12 14:23] LABS: Bacteria 0 SEEN /hpf (None Seen); Mucous, Urine 0 SEEN /hpf (<or=2+); Red Blood Cells-Urine 0 SEEN /hpf (0-5)
[2019-03-12 14:36] LABS: Absolute Lymphocyte Count 2.94 X10^3/ul (0.83-4.51); Absolute Neutrophil Count 6.9 X10^3/uL (2.0-7.7); Basophil# 0.02 X10^3/uL; Basophil% 0.2 % (0-1); Eosinophil# 0.01 X10^3/uL; Eosinophils% 0.1 % (0-5); Hematocrit 39.8 % (37-47); Hemoglobin 13.2 g/dl (12.0-15.0); Lymphocyte # 2.94 X10^3/ul (4.0); Lymphocyte % 27.8 % (19-41); Mean Corp Hgb Conc 33.2 g/gl (32-36); Mean Corpuscular Hgb 29.4 pg (27.0-32.0); Mean Corpuscular Volume 88.6 fL (81-99); Mean Platelet Vol. 10.1 fl (6.2-12.0); Monocyte# 0.65 X10^3/uL; Monocyte% 6.1 % (0-10); Neutrophil # 6.92 X10^3/uL (2.7-7.7); Neutrophil % 65.5 % (47-70); Platelet Count 213 K/mm3 (150-450); RBC Distribution Width CV 14.2 % (11.6-14.6); RBC Distribution Width SD 45.8 fl (35.1-43.9); Red Blood Count 4.49 M/mm3 (4.2-5.4); White Blood Count 10.6 K/mm3 (4.4-11.0)
[2019-03-12 14:37] LABS: POSITIVE COUNT NO; POSITIVE DIFFERENTIAL NO; POSITIVE MORPHOLOGY NO
[2019-03-12 14:50] LABS: Color, Urine Yellow (Yellow); Glucose, Dipstick Normal (Normal); Ketone-Dipstick Negative (Negative); Leukocyte Esterase-Dipstick 25 /ul (Negative); Nitrite-Dipstick Negative (Negative); Occult Blood-Urine Negative /ul (Negative); Protein-Dipstick Negative (Negative); Urine Bilirubin Dipstick Negative (Negative); Urine Clarity Clear (Clear); Urine Urobilinogen Normal (Normal)
[2019-03-12 14:52] LABS: Hemoglobin A1c 7.3 % (4.2-6.3)
[2019-03-12 14:54] LABS: Vitamin B12 543 pg/mL (211-911)
[2019-03-12 15:00] LABS: Cholesterol 177 mg/dL (200); High Density Lipoprotein 58 mg/dL; Thyroid Stim Hormone (TSH) 1.24 uIU/mL (0.358-3.74); Triglycerides 198 mg/dL; Very Low Density Lipoprotein 40 mg/dL (5-40)
[2019-03-12 15:05] LABS: Calcium Oxalate Crystals Ur 1+ /hpf (<or=2+); Squamous Epithelial Cells - UA 5-10 SEEN /hpf (5-10); White Blood Cells 0-5 SEEN /hpf (0-5)
== END ==
PROVIDERS: Family Provider Family Medicine; PCP Family Medicine; Referring Provider Family Medicine; Visit Provider Family Medicine
DX: R53.81 Other malaise (principal); R41.3 Other amnesia; E78.5 Hyperlipidemia, unspecified; E11.21 Type 2 diabetes mellitus with diabetic nephropathy; Z79.4 Long term (current) use of insulin
CPT/HCPCS: 80061; 81001; 82607; 82746; 83036; 84443; 85025; 87086; 87088

== ENCOUNTER 2019-03-16 09:14 | Outpatient (RCR) | payer MEDICARE, MEDICAID, SELFPAY ==
[2019-03-16 10:16] LABS: Absolute Lymphocyte Count 2.73 X10^3/ul (0.83-4.51); Absolute Neutrophil Count 7.4 X10^3/uL (2.0-7.7); Basophil# 0.02 X10^3/uL; Basophil% 0.2 % (0-1); Hematocrit 40.7 % (37-47); Hemoglobin 13.4 g/dl (12.0-15.0); Lymphocyte # 2.73 X10^3/ul (4.0); Lymphocyte % 25.5 % (19-41); Mean Corp Hgb Conc 32.9 g/gl (32-36); Mean Corpuscular Hgb 29.1 pg (27.0-32.0); Mean Corpuscular Volume 88.5 fL (81-99); Mean Platelet Vol. 10.5 fl (6.2-12.0); Monocyte# 0.47 X10^3/uL; Monocyte% 4.4 % (0-10); Neutrophil # 7.44 X10^3/uL (2.7-7.7); Neutrophil % 69.6 % (47-70); POSITIVE COUNT NO; POSITIVE DIFFERENTIAL NO; POSITIVE MORPHOLOGY NO; Platelet Count 207 K/mm3 (150-450); RBC Distribution Width CV 14.1 % (11.6-14.6); RBC Distribution Width SD 45.5 fl (35.1-43.9); White Blood Count 10.7 K/mm3 (4.4-11.0)
== END 2019-03-16 10:00 | disposition home or self-care (01) ==
LOC: LAB 09:14
PROVIDERS: Family Provider Family Medicine; PCP Family Medicine; Referring Provider Psychiatry & Neurology Psychiatry; Visit Provider Psychiatry & Neurology Psychiatry
DX: Z79.899 Other long term (current) drug therapy (principal)
CPT/HCPCS: 36415; 85025

== ENCOUNTER 2019-05-11 09:26 | Outpatient (RCR) | payer MEDICARE, MEDICAID, SELFPAY ==
[2019-04-13 10:00] LABS: Absolute Lymphocyte Count 2.74 X10^3/ul (0.83-4.51); Absolute Neutrophil Count 4.9 X10^3/uL (2.0-7.7); Basophil# 0.02 X10^3/uL; Basophil% 0.2 % (0-1); Eosinophil# 0.01 X10^3/uL; Eosinophils% 0.1 % (0-5); Hematocrit 40.9 % (37-47); Hemoglobin 13.5 g/dl (12.0-15.0); Lymphocyte # 2.74 X10^3/ul (4.0); Lymphocyte % 33.5 % (19-41); Mean Corpuscular Hgb 29.2 pg (27.0-32.0); Mean Corpuscular Volume 88.3 fL (81-99); Mean Platelet Vol. 9.7 fl (6.2-12.0); Monocyte% 6.1 % (0-10); Neutrophil # 4.89 X10^3/uL (2.7-7.7); Neutrophil % 59.7 % (47-70); Platelet Count 202 K/mm3 (150-450); RBC Distribution Width CV 14.1 % (11.6-14.6); RBC Distribution Width SD 45.3 fl (35.1-43.9); Red Blood Count 4.63 M/mm3 (4.2-5.4); White Blood Count 8.2 K/mm3 (4.4-11.0)
[2019-04-13 10:03] LABS: Differential Indicated SCAN CRITERIA MET; POSITIVE COUNT NO; POSITIVE DIFFERENTIAL NO; POSITIVE MORPHOLOGY YES
[2019-04-13 10:47] LABS: Platelet Estimate ADEQUATE (ADEQ); Red Cell Morphology NORM C+C NORMAL (NORM C&C)
[2019-05-11 09:56] LABS: Absolute Lymphocyte Count 2.34 X10^3/uL (0.83-4.51); Absolute Neutrophil Count 6.1 X10^3/uL (2.0-7.7); Basophil# 0.02 X10^3/uL; Basophil% 0.2 % (0-1); Hematocrit 41.6 % (37-47); Hemoglobin 13.4 g/dL (12.0-15.0); Lymphocyte # 2.34 X10^3/ul (4.0); Lymphocyte % 25.9 % (19-41); Mean Corp Hgb Conc 32.2 g/dL (32-36); Mean Corpuscular Hgb 28.6 pg (27.0-32.0); Mean Corpuscular Volume 88.9 fL (81-99); Mean Platelet Vol. 9.8 fl (6.2-12.0); Monocyte# 0.56 X10^3/uL; Monocyte% 6.2 % (0-10); NRBC Flagged by Analyzer 0 % (0-5); Neutrophil # 6.08 X10^3/uL (2.7-7.7); Neutrophil % 67.4 % (47-70); POSITIVE MORPHOLOGY YES; Platelet Count 197 K/mm3 (150-450); RBC Distribution Width CV 13.6 % (11.6-14.6); RBC Distribution Width SD 44.2 fl (35.1-43.9); Red Blood Count 4.68 M/mm3 (4.2-5.4)
[2019-05-11 09:57] LABS: POSITIVE DIFFERENTIAL YES
[2019-05-11 09:58] LABS: Differential Indicated SCAN CRITERIA MET
== END 2019-05-11 10:00 | disposition home or self-care (01) ==
LOC: LAB 09:26
PROVIDERS: Family Provider Family Medicine; PCP Family Medicine; Referring Provider Psychiatry & Neurology Psychiatry; Visit Provider Psychiatry & Neurology Psychiatry
DX: Z79.899 Other long term (current) drug therapy (principal)
CPT/HCPCS: 36415; 85025

== ENCOUNTER 2019-06-04 08:38 | Outpatient (RCR) | payer MEDICARE, MEDICAID, SELFPAY ==
[2019-06-04 09:47] LABS: Absolute Lymphocyte Count 2.25 X10^3/uL (0.83-4.51); Absolute Neutrophil Count 5.6 X10^3/uL (2.0-7.7); Basophil# 0.05 X10^3/uL; Basophil% 0.6 % (0-1); Hematocrit 40.9 % (37-47); Hemoglobin 13.2 g/dL (12.0-15.0); Lymphocyte # 2.25 X10^3/ul (4.0); Lymphocyte % 26.3 % (19-41); Mean Corp Hgb Conc 32.3 g/dL (32-36); Mean Corpuscular Hgb 29.4 pg (27.0-32.0); Mean Corpuscular Volume 91.1 fL (81-99); Mean Platelet Vol. 11.6 fl (6.2-12.0); Monocyte# 0.68 X10^3/uL; Monocyte% 7.9 % (0-10); NRBC Flagged by Analyzer 0 % (0-5); Neutrophil # 5.55 X10^3/uL (2.7-7.7); Neutrophil % 64.8 % (47-70); POSITIVE MORPHOLOGY YES; Platelet Count 178 K/mm3 (150-450); RBC Distribution Width CV 13.8 % (11.6-14.6); RBC Distribution Width SD 46.1 fl (35.1-43.9); Red Blood Count 4.49 M/mm3 (4.2-5.4); White Blood Count 8.6 K/mm3 (4.4-11.0)
[2019-06-04 09:50] LABS: Differential Indicated SCAN CRITERIA MET
== END 2019-06-04 10:00 | disposition home or self-care (01) ==
LOC: LAB 08:38
PROVIDERS: Family Provider Family Medicine; PCP Family Medicine; Referring Provider Psychiatry & Neurology Psychiatry; Visit Provider Psychiatry & Neurology Psychiatry
DX: Z79.899 Other long term (current) drug therapy (principal)
CPT/HCPCS: 36415; 85025

== ENCOUNTER 2019-07-06 09:29 | Outpatient (RCR) | payer MEDICARE, MEDICAID, SELFPAY ==
[2019-07-06 10:17] LABS: Absolute Lymphocyte Count 1.93 X10^3/uL (0.83-4.51); Absolute Neutrophil Count 9.3 X10^3/uL (2.0-7.7); Basophil# 0.03 X10^3/uL; Basophil% 0.2 % (0-1); Eosinophil# 0.01 X10^3/uL; Eosinophils% 0.1 % (0-5); Hematocrit 41.4 % (37-47); Hemoglobin 13.5 g/dL (12.0-15.0); Lymphocyte # 1.93 X10^3/ul (4.0); Lymphocyte % 15.7 % (19-41); Mean Corp Hgb Conc 32.6 g/dL (32-36); Mean Corpuscular Hgb 29.6 pg (27.0-32.0); Mean Corpuscular Volume 90.8 fL (81-99); Mean Platelet Vol. 9.9 fl (6.2-12.0); Monocyte% 7.3 % (0-10); NRBC Flagged by Analyzer 0 % (0-5); Neutrophil # 9.32 X10^3/uL (2.7-7.7); Neutrophil % 76.1 % (47-70); POSITIVE MORPHOLOGY YES; Platelet Count 221 K/mm3 (150-450); RBC Distribution Width CV 14.2 % (11.6-14.6); RBC Distribution Width SD 46.9 fl (35.1-43.9); Red Blood Count 4.56 M/mm3 (4.2-5.4); White Blood Count 12.3 K/mm3 (4.4-11.0)
[2019-07-06 10:47] LABS: Differential Comment SCANNED
[2019-07-07 16:00] LABS: Pathologist Review Reviewed
== END 2019-07-06 15:25 | disposition home or self-care (01) ==
LOC: LAB 09:29
PROVIDERS: Family Provider Family Medicine; PCP Family Medicine; Referring Provider Psychiatry & Neurology Psychiatry; Visit Provider Psychiatry & Neurology Psychiatry
DX: Z79.899 Other long term (current) drug therapy (principal)
CPT/HCPCS: 36415; 85025

== ENCOUNTER → 2019-07-14 12:54 | Outpatient (CLI) | payer MEDICARE, MEDICAID, SELFPAY ==
--- NOTE | 2019-07-14 12:59 | ECHOCS_ITS ---
Reason For Study: DYSPNEA Procedure This was a 2D Doppler, Color Flow transthoracic echocardiogram. The study was technically difficult. Contrast injection was performed. Exam performed portable in patient room. Left Ventricle Normal size and thickness. The estimated ejection fraction is 65 %. Stage 1 diastolic dysfunction. No regional wall motion abnormalities noted. Right Ventricle Normal size and thickness. Normal systolic function. Atria Normal left atrium. Normal right atrium. Normal atrial septum. Mitral Valve The mitral valve is structurally normal. No prolapse or stenosis seen. Tricuspid Valve Normal tricuspid valve. Trivial tricuspid valve insufficiency. Right ventricular systolic pressure estimated to be 38 mmHg. Mild pulmonary hypertension. Aortic Valve Trisinus/trileaflet aortic valve. Normal aortic valve. Pulmonic Valve Normal pulmonic valve. Great Vessels Normal aortic root. Normal arch. Normal inferior vena cava. Inferior vena cava collapse with sniff. Pericardium/Pleural No pericardial effusion. Medication 22 gauge I.V. with prn adaptor inserted into right arm. Diluted definity 3.0ml given slow IV push to enhance endocardial definition. MMode/2D Measurements & Calculations LVIDd: 3.8 cm IVSd: 1.1 cm Ao root diam: 3.1 cm LVIDs: 2.6 cm LVPWd: 0.94 cm RVDd: 2.6 cm FS: 32.2 % LAV(MOD-bp): 28.9 ml LA A4 area: 11.6 cm2 LA dimension(2D): 3.7 cm LAV(MOD-bp) Indexed: 15.2 ml/m2 LAV(MOD-sp2): 39.1 ml LAV(MOD-sp4): 21.1 ml RA A4 area: 8.5 cm2 Time Measurements MV dec time: 0.27 sec Doppler Measurements & Calculations MV E max jose: 96.7 cm/sec Lat Peak E' Jose: 11.4 cm/sec Med Peak E' Jose: 8.4 cm/sec MV A max jose: 123.5 cm/sec E/E' lat: 8.5 E/E' med: 11.5 MV E/A: 0.78 Ao V2 max: 157.6 cm/sec LV V1 max: 113.9 cm/sec PA V2 max: 91.3 cm/sec Ao max P.9 mmHg LV V1 max P.2 mmHg TR max jose: 258.4 cm/sec TR max P.9 mmHg Interpretation Summary The estimated ejection fraction is 65 %. Stage 1 diastolic dysfunction. Trivial tricuspid valve insufficiency. Right ventricular systolic pressure estimated to be 38 mmHg. Mild pulmonary hypertension. Compared to echo report dated 10/15/2017, LV function has remained the same. RVSP has increased from 25 to 38 mm Hg. The study was technically difficult. Contrast injection was performed. Ordering Physician: ALEKSANDAR JONES Referring Physician: Koby Ramirez V Performed By: Darcy Peng, GINGER, RVT
== END ==
PROVIDERS: Family Provider Family Medicine; PCP Family Medicine; Referring Provider Internal Medicine Pulmonary Disease; Visit Provider Internal Medicine Pulmonary Disease
DX: R06.00 Dyspnea, unspecified (principal)
CPT/HCPCS: 93306; Q9957; A4216; C8929

== ENCOUNTER 2019-08-05 12:55 | Outpatient (RCR) | payer MEDICARE, MEDICAID, SELFPAY ==
[2019-07-20 09:55] LABS: Absolute Lymphocyte Count 2.17 X10^3/uL (0.83-4.51); Basophil# 0.03 X10^3/uL; Basophil% 0.3 % (0-1); Eosinophil# 0.01 X10^3/uL; Eosinophils% 0.1 % (0-5); Hematocrit 42.6 % (37-47); Hemoglobin 13.7 g/dL (12.0-15.0); Lymphocyte # 2.17 X10^3/ul (4.0); Lymphocyte % 19.8 % (19-41); Mean Corp Hgb Conc 32.2 g/dL (32-36); Mean Corpuscular Hgb 29.1 pg (27.0-32.0); Mean Corpuscular Volume 90.6 fL (81-99); Mean Platelet Vol. 11.2 fl (6.2-12.0); Monocyte# 0.77 X10^3/uL; NRBC Flagged by Analyzer 0 % (0-5); Neutrophil # 7.97 X10^3/uL (2.7-7.7); Neutrophil % 72.5 % (47-70); POSITIVE MORPHOLOGY YES; Platelet Count 205 K/mm3 (150-450); RBC Distribution Width CV 14.2 % (11.6-14.6); RBC Distribution Width SD 47.4 fl (35.1-43.9)
[2019-07-20 10:11] LABS: Differential Indicated SCAN CRITERIA MET
[2019-08-05 13:40] LABS: Absolute Lymphocyte Count 3.85 X10^3/uL (0.83-4.51); Absolute Neutrophil Count 10.9 X10^3/uL (2.0-7.7); Basophil# 0.04 X10^3/uL; Basophil% 0.3 % (0-1); Eosinophil# 0.01 X10^3/uL; Eosinophils% 0.1 % (0-5); Hematocrit 40.7 % (37-47); Hemoglobin 13.3 g/dL (12.0-15.0); Lymphocyte # 3.85 X10^3/ul (4.0); Lymphocyte % 24.4 % (19-41); Mean Corp Hgb Conc 32.7 g/dL (32-36); Mean Corpuscular Hgb 29.4 pg (27.0-32.0); Mean Platelet Vol. 9.8 fl (6.2-12.0); Monocyte% 5.7 % (0-10); NRBC Flagged by Analyzer 0 % (0-5); Neutrophil # 10.89 X10^3/uL (2.7-7.7); Neutrophil % 68.7 % (47-70); POSITIVE MORPHOLOGY YES; Platelet Count 275 K/mm3 (150-450); RBC Distribution Width CV 13.8 % (11.6-14.6); RBC Distribution Width SD 45.4 fl (35.1-43.9); Red Blood Count 4.52 M/mm3 (4.2-5.4); White Blood Count 15.8 K/mm3 (4.4-11.0)
[2019-08-05 13:48] LABS: Differential Indicated SCAN CRITERIA MET
[2019-08-05 14:18] LABS: Reactive Lymphocyte 1+
== END 2019-08-05 18:00 | disposition home or self-care (01) ==
LOC: LAB 12:55
PROVIDERS: Family Provider Family Medicine; PCP Family Medicine; Referring Provider Psychiatry & Neurology Psychiatry; Visit Provider Psychiatry & Neurology Psychiatry
DX: Z79.899 Other long term (current) drug therapy (principal)
CPT/HCPCS: 36415; 85025

== ENCOUNTER → 2019-08-16 14:29 | Outpatient (CLI) | payer MEDICARE, MEDICAID, SELFPAY | PROVIDERS: Family Provider Family Medicine; PCP Family Medicine; Referring Provider Family Medicine; Visit Provider Family Medicine | DX: R32 Unspecified urinary incontinence (principal) | CPT/HCPCS: 87086; 87088 ==

== ENCOUNTER 2019-08-31 09:19 | Outpatient (RCR) | payer MEDICARE, MEDICAID, SELFPAY ==
[2019-08-31 10:29] LABS: Absolute Lymphocyte Count 2.67 X10^3/uL (0.83-4.51); Absolute Neutrophil Count 5.4 X10^3/uL (2.0-7.7); Basophil# 0.06 X10^3/uL; Basophil% 0.7 % (0-1); Eosinophil# 0.18 X10^3/uL; Hematocrit 44.4 % (37-47); Lymphocyte # 2.67 X10^3/ul (4.0); Lymphocyte % 29.7 % (19-41); Mean Corp Hgb Conc 31.5 g/dL (32-36); Mean Corpuscular Volume 92.1 fL (81-99); Mean Platelet Vol. 10.5 fl (6.2-12.0); Monocyte% 6.7 % (0-10); NRBC Flagged by Analyzer 0 % (0-5); Neutrophil # 5.44 X10^3/uL (2.7-7.7); Neutrophil % 60.3 % (47-70); POSITIVE MORPHOLOGY YES; Platelet Count 211 K/mm3 (150-450); RBC Distribution Width CV 13.8 % (11.6-14.6); Red Blood Count 4.82 M/mm3 (4.2-5.4)
[2019-08-31 10:33] LABS: Differential Indicated SCAN CRITERIA MET
== END 2019-08-31 18:00 | disposition home or self-care (01) ==
LOC: LAB 09:19
PROVIDERS: Family Provider Family Medicine; PCP Family Medicine; Referring Provider Psychiatry & Neurology Psychiatry; Visit Provider Psychiatry & Neurology Psychiatry
DX: Z79.899 Other long term (current) drug therapy (principal)
CPT/HCPCS: 36415; 85025

== ENCOUNTER 2019-09-23 09:23 | Outpatient (RCR) | payer MEDICARE, MEDICAID, SELFPAY ==
[2019-09-23 10:01] LABS: Absolute Lymphocyte Count 2.04 X10^3/uL (0.83-4.51); Absolute Neutrophil Count 6.6 X10^3/uL (2.0-7.7); Basophil# 0.03 X10^3/uL; Basophil% 0.3 % (0-1); Hematocrit 40.4 % (37-47); Hemoglobin 13.1 g/dL (12.0-15.0); Lymphocyte # 2.04 X10^3/ul (4.0); Lymphocyte % 22.1 % (19-41); Mean Corp Hgb Conc 32.4 g/dL (32-36); Mean Corpuscular Hgb 29.8 pg (27.0-32.0); Mean Corpuscular Volume 91.8 fL (81-99); Mean Platelet Vol. 9.7 fl (6.2-12.0); Monocyte# 0.51 X10^3/uL; Monocyte% 5.5 % (0-10); NRBC Flagged by Analyzer 0 % (0-5); Neutrophil # 6.63 X10^3/uL (2.7-7.7); Neutrophil % 71.8 % (47-70); Platelet Count 187 K/mm3 (150-450); RBC Distribution Width CV 13.8 % (11.6-14.6); RBC Distribution Width SD 46.5 fl (35.1-43.9); White Blood Count 9.2 K/mm3 (4.4-11.0)
== END 2019-09-23 18:00 | disposition home or self-care (01) ==
LOC: LAB 09:23
PROVIDERS: Family Provider Family Medicine; PCP Family Medicine; Referring Provider Psychiatry & Neurology Psychiatry; Visit Provider Psychiatry & Neurology Psychiatry
DX: Z79.899 Other long term (current) drug therapy (principal)
CPT/HCPCS: 36415; 85025

== ENCOUNTER 2019-10-20 08:53 | Outpatient (RCR) | payer MEDICARE, MEDICAID, SELFPAY ==
[2019-10-20 10:01] LABS: Absolute Lymphocyte Count 2.43 X10^3/uL (0.83-4.51); Absolute Neutrophil Count 5.8 X10^3/uL (2.0-7.7); Basophil# 0.04 X10^3/uL; Basophil% 0.4 % (0-1); Eosinophil# 0.01 X10^3/uL; Eosinophils% 0.1 % (0-5); Hematocrit 41.6 % (37-47); Hemoglobin 13.4 g/dL (12.0-15.0); Lymphocyte # 2.43 X10^3/ul (4.0); Lymphocyte % 27.1 % (19-41); Mean Corp Hgb Conc 32.2 g/dL (32-36); Mean Corpuscular Hgb 29.3 pg (27.0-32.0); Mean Corpuscular Volume 90.8 fL (81-99); Mean Platelet Vol. 10.8 fl (6.2-12.0); Monocyte% 6.7 % (0-10); NRBC Flagged by Analyzer 0 % (0-5); Neutrophil # 5.84 X10^3/uL (2.7-7.7); Neutrophil % 65.1 % (47-70); Platelet Count 196 K/mm3 (150-450); RBC Distribution Width CV 13.8 % (11.6-14.6); RBC Distribution Width SD 45.8 fl (35.1-43.9); Red Blood Count 4.58 M/mm3 (4.2-5.4)
== END 2019-10-20 18:00 ==
LOC: LAB 08:53
PROVIDERS: Family Provider Family Medicine; PCP Family Medicine; Referring Provider Psychiatry & Neurology Psychiatry; Visit Provider Psychiatry & Neurology Psychiatry
DX: Z79.899 Other long term (current) drug therapy (principal)
CPT/HCPCS: 36415; 85025

== ENCOUNTER 2019-10-31 09:32 | Inpatient (IN) | payer MEDICARE, MEDICAID, SELFPAY ==
[2019-10-31] VITALS (16 sets, daily range): BP systolic 112–145; BP diastolic 67–87; PULSE 89–116; RESP 18–27; TEMP 36.4–37.2; O2SAT 94–98; BMI 38.5; BMI 38.2
--- NOTE | 2019-10-31 09:50 | EKG12_ITS ---
Test Reason : SOB Blood Pressure : / mmHG Vent. Rate : 107 BPM Atrial Rate : 107 BPM P-R Int : 152 ms QRS Dur : 082 ms QT Int : 328 ms P-R-T Axes : 050 021 062 degrees QTc Int : 437 ms Sinus tachycardia Low voltage QRS Borderline ECG Confirmed by JACOB MARTINES MD ([id number]), editor in chief newspaper JUANA GOODMAN ([id number]) on 11/02/2019 11:26:48 AM Referred By: LIZ Confirmed By:JACOB MARTINES MD
--- NOTE | 2019-10-31 09:59 | ED.VIS.DYS ---
History of Present Illness <Yvette Young - Last Filed: 10/31/19 12:16> Informant: Patient Onset: Days - 5 days Activity at onset: Exertion, Light Activity, Rest Timing: Continuous Quality: Dyspnea on exertion, Wheezing. Negative for: Orthopnea, PND Current Severity: Severe Maximum Severity: Severe Worsened by: Coughing, Exertion Relieved by: Nothing Associated Symptoms: Cough, Green sputum, Post-nasal drainage, Rhinorrhea, Sore throat Chest Pain: None Narrative: 53-year-old female presents from [facility] with progressively worsening shortness of breath productive cough with sputum and wheezing with dyspnea on exertion. No relief with aerosol inhalers. No fevers. No vomiting or diarrhea. She is not lightheaded or dizzy. No leg pain or swelling or hemoptysis. She does have a history of COPD. She has a history of pneumonia as well and feels she may have pneumonia. She has not been on antibiotics yet for this course of illness. PE Risk Factors: Negative for: Cancer, OCP + Smoking + > 35, Prior DVT or PE, Recent immobilization, Recent surgery, Recent travel Prior similar symptoms: Yes Recent Illness/Hospitalization: No <Marcellus Jarvis - Last Filed: 10/31/19 12:59> Chief Complaint: Shortness of Breath Past Medical History <Yvette Young - Last Filed: 10/31/19 12:16> Prior records reviewed: Yes Past Medical History: - - COPD Surgical History: noncontributory Lives: - - [facility] Smoking Status: Former smoker Alcohol: None Drugs: None - Family History Paternal Family History: Reports: COPD, - - from a farm accident Maternal Family History: Reports: No pertinent history <Marcellus Jarvis - Last Filed: 10/31/19 12:59> - Allergies and Home Meds Allergies/Adverse Reactions: Allergies No Known Allergies Allergy (Verified 10/31/19 11:35) Primary Care Physician: Boris Vance MD [Primary Care Provider] - Review of Systems All systems negative except as indicated General: Denies: Chills, Fever, Malaise Eyes: Denies: Visual changes - bilaterally, Blurred Vision - bilaterally ENT: Reports: Rhinorrhea, Sore throat Cardiovascular: Denies: Chest pain, Palpitations, Heart racing Respiratory: Reports: Dyspnea, Cough, Sputum, Dyspnea on exertion. Denies: Orthopnea, Paroxysmal nocturnal dyspnea Gastrointestinal: Denies: Abdominal pain, Nausea, Vomiting, Diarrhea Genitourinary: Denies: Dysuria, Hematuria, Frequency Musculoskeletal: Denies: Myalgias, Arthralgias, Neck pain, Back pain, Swelling, Extremity Pain Skin: Denies: Rash, Abscess, Abrasions, Wounds Neurological: Denies: Headache, Weakness, Parasthesia <Marcellus Jarvis - Last Filed: 10/31/19 12:59> Physical Exam Vital Signs/Narrative: Vital Signs Temp Pulse Resp BP Pulse Ox 10/31/19 12:06 98.6 F 102 H 22 H 117/76 96 10/31/19 11:39 99 F 104 H 20 H 119/87 H 96 10/31/19 10:19 98.3 F 108 H 26 H 124/67 H 94 10/31/19 10:13 108 H 20 H 10/31/19 09:33 97.5 F L 116 H 24 H 145/79 H 94 <Yvette Young - Last Filed: 10/31/19 12:16> Vital Signs/Narrative: Vital Signs Temp Pulse Resp BP Pulse Ox 10/31/19 09:33 97.5 F L 116 H 24 H 145/79 H 94 Inital Vital Signs reviewed: Yes General: Well nourished, Well developed, Obese Head: Normocephalic, Atraumatic Eyes: Perrl, EOMI ENT: Moist mucous membranes Neck: Supple, Nontender Cardiovascular: No murmurs, Tachycardia Respiratory: No distress, Chest nontender, Wheezing Abdomen: Soft, Nontender, Nondistended, Normal bowel sounds, No masses Back: Nontender, Normal Inspection Extremities: Nontender, No edema Skin: Normal color, No rash Neurological: Alert, Oriented x3 Psychological: Normal affect <Marcellus Jarvis - Last Filed: 10/31/19 12:59> Diagnostic/Tx/Re-eval - Medical Decision Making Patient seen with the PA agree with history and physical as above patient with shortness of breath and cough on exam diminished breath sounds heart tones unremarkable abdomen soft awake alert moving all 4 no distress please see the chart for full details <Yvette Young - Last Filed: 01/19/20 12:16> Chest X-Ray - ED: 2 View, Read by ED Physician, Read by Radiologist, Chronic Changes, Left Infiltrate - Rhythm Strip Rhythm Strip: Sinus Tach Rate: 111 Ectopy: None - EKG Initial EKG Interpretation: No Acute Injury Pattern, Sinus Tachycardia Prior: Unchanged Treatment - Dyspnea: Oxygen, Albuterol, Atrovent, Steroid Repeat Evaluation: No change With Ambulation: Desaturation, Tachypnea - Medical Decision Making Patient was tachycardic and had an increased respiratory rate on arrival therefore sepsis work-up was pursued. Patient was given Tylenol, Solu-Medrol, the appropriate IV fluid bolus, and aerosol breathing treatments. EKG was sinus tachycardia but no acute ischemic changes and unchanged from previous EKG. CBC, BMP, remarkable for a white blood cell count of 20. Lactic acid is 2.1. 2 view chest x-ray shows a left upper lobe pneumonia. Patient's blood pressure stable she is still requiring oxygen she meets criteria for severe sepsis and therefore will require admission. She was given Rocephin and Zithromax. Respiratory panel was sent. Spoke with hospitalist. PCU admission <Marcellus Jarvis - Last Filed: 10/31/19 12:59> Critical care time (excluding procedures): 30-74 minutes <Marcellus Jarvis - Last Filed: 10/31/19 12:59> ED Disposition <Yvette Young - Last Filed: 10/31/19 12:16> <Marcellus Jarvis - Last Filed: 10/31/19 12:59> - Plan for ED Patient: Disposition: Acute [facility] Diagnosis: Community acquired pneumonia, Severe sepsis, Hypoxia, COPD (chronic obstructive pulmonary disease) Referrals: Boris Vance MD [Primary Care Provider] -
[2019-10-31] MEDS: Ipratropium/Albuterol Sulfate 3 ML AMPUL.NEB INHALATION ×3 (10:10→18:39)
[2019-10-31] MEDS: Albuterol 2.5 MG/3 ML VIAL.NEB. INHALATION ×2 (10:10)
[2019-10-31 10:18] LABS: Absolute Lymphocyte Count 2.19 X10^3/uL (0.83-4.51); Absolute Neutrophil Count 16.7 X10^3/uL (2.0-7.7); Basophil# 0.04 X10^3/uL; Basophil% 0.2 % (0-1); Eosinophil# 0.08 X10^3/uL; Eosinophils% 0.4 % (0-5); Hematocrit 36.7 % (37-47); Lymphocyte # 2.19 X10^3/ul (4.0); Lymphocyte % 10.8 % (19-41); Mean Corp Hgb Conc 32.7 g/dL (32-36); Mean Corpuscular Hgb 29.3 pg (27.0-32.0); Mean Corpuscular Volume 89.5 fL (81-99); Mean Platelet Vol. 10.1 fl (6.2-12.0); Monocyte# 1.24 X10^3/uL; Monocyte% 6.1 % (0-10); NRBC Flagged by Analyzer 0 % (0-5); Neutrophil # 16.66 X10^3/uL (2.7-7.7); Neutrophil % 81.9 % (47-70); Platelet Count 209 K/mm3 (150-450); RBC Distribution Width CV 13.9 % (11.6-14.6); RBC Distribution Width SD 45.1 fl (35.1-43.9); White Blood Count 20.3 K/mm3 (4.4-11.0)
[2019-10-31] MEDS: 0.9% Normal Saline 1,000 ML 999 ML IV ×2 (10:21→10:24)
[2019-10-31 10:23] LABS: International Normalized Ratio 1.1; Prothrombin Time (Protime)PT. 14.3 SECONDS (11.7-14.9)
[2019-10-31] MEDS: MethylPREDNISolone 125 MG/2 ML Vial IV (10:23)
[2019-10-31] MEDS: Acetaminophen 325 MG Tablet 650 MG PO (10:23)
[2019-10-31 10:25] LABS: Partial Thromboplast Time 39.3 Seconds (24.1-36.2)
[2019-10-31 10:31] LABS: ALB/GLOB Ratio 0.7 RATIO (0.9-2.4); AST(SGOT) 31 U/L (15-37); Alanine Aminotransfer ALT/SGPT 60 U/L (13-56); Albumin, Serum 3.4 g/dL (3.2-5.0); Alkaline Phosphatase 140 U/L (45-117); Anion Gap 10 (5-15); BUN 9 mg/dL (7-18); Calcium,Total 9.2 mg/dL (8.5-10.1); Chloride 97 mmol/L (98-107); Creatinine, Serum 0.75 mg/dL (0.55-1.02); EST Glomerular Filtration Rate 85 mL/min (>60); Est Glom Filt Rate - Afr Amer 103 mL/min (>60); Estimated Creatinine Clearance 63.95 ml/min; Globulin 4.6 g/dL (2.2-4.2); Glucose 202 mg/dL (74-106); Potassium 3.5 mmol/L (3.5-5.1); Sodium Level 130 mmol/L (136-145)
[2019-10-31 10:45] LABS: Bacteria 0 SEEN /hpf (None Seen); Mucous, Urine 0 SEEN /hpf (<or=2+); Red Blood Cells-Urine 0 SEEN /hpf (0-5); White Blood Cells 0 SEEN /hpf (0-5)
[2019-10-31 10:53] LABS: Lactic Acid 2.1 mmol/L (0.4-1.9)
[2019-10-31 10:58] LABS: Color, Urine Yellow (Yellow); Glucose, Dipstick Normal (Normal); Ketone-Dipstick Negative (Negative); Leukocyte Esterase-Dipstick Negative /ul (Negative); Nitrite-Dipstick Negative (Negative); Occult Blood-Urine Negative /ul (Negative); Protein-Dipstick Negative (Negative); Urine Bilirubin Dipstick Negative (Negative); Urine Clarity Clear (Clear); Urine Urobilinogen Normal (Normal); Urine pH 6.5 (5.0 - 8.0)
[2019-10-31 11:06] LABS: Hyaline Cast 0-5 SEEN /lpf (0-5); Squamous Epithelial Cells - UA 0-5 SEEN /hpf (5-10)
--- NOTE | 2019-10-31 11:15 | RAD_ITS ---
STUDY: X-RAY CHEST REASON FOR EXAM: Female, 53 years old. COUGH TECHNIQUE: PA and lateral views of the chest. COMPARISON: November 22, 2017, October 11, 2017, October 26, FINDINGS: There are increasing left greater than right perihilar focal opacities with a lateral view demonstrating anterior left upper lobe consolidation with an air bronchogram. There is no demonstrated pleural abnormality. Normal size heart. Normal mediastinum and reshma. Normal visualized pulmonary arteries. Normal visualized aortic arch and descending thoracic aorta. There are diffuse degenerative changes of the visualized thoracic spine. Normal visualized ribs, clavicles, and shoulders. There is no demonstrated abnormality of the visualized soft tissue structures of the upper abdomen. RAD/Chest PA and Lateral IMPRESSION: Interval development of patchy consolidation in the left upper lobe consistent with pneumonia. Persistent bilateral interstitial prominence suggesting the possibility of underlying chronic lung disease. Electronically Signed: Flory Coyle MD at 11:49 EST Tel , Service support ,
[2019-10-31] MEDS: Ceftriaxone 1 GM/50 ML BAG IV (12:25)
--- NOTE | 2019-10-31 12:53 | NURSING ---
[facility]
--- NOTE | 2019-10-31 13:17 | PCM.HP.STD ---
Problem List (1) Community acquired pneumonia Status: Acute (2) Severe sepsis Status: Acute (3) Hypoxia Status: Acute (4) FTT (failure to thrive) in adult Status: Chronic (5) COPD (chronic obstructive pulmonary disease) Status: Chronic (6) Hyperlipidemia Status: Chronic (7) Diabetes mellitus type 2 in obese Status: Chronic (8) HTN (hypertension) Status: Chronic (9) Schizophrenia Status: Chronic History of Present Illness Date of Admission: 10/31/19 Chief Complaint: Shortness of breath, cough. The patient is a 53 year old F who presents to the emergency room due to cough and shortness of breath. Patient reports symptom onset 3 or 4 days ago. She notes there have been other sick individuals at the residential where she resides. She states some of them have had the flu. Patient reports harsh productive cough and increased shortness of breath. She denies fever, chills. Denies nausea, vomiting, diarrhea. She has a past medical history of COPD, type 2 diabetes mellitus, hyperlipidemia, schizophrenia, LIDA, chronic hypoxic respiratory failure. Patient reports she wears 2 L nasal cannula continuously at baseline. Past Medical History Past Medical History (Chronic Problems): Chronic Problems FTT (failure to thrive) in adult (Chronic) COPD (chronic obstructive pulmonary disease) (Chronic) Hyperlipidemia (Chronic) Diabetes mellitus type 2 in obese (Chronic) HTN (hypertension) (Chronic) Schizophrenia (Chronic) Allergies No Known Allergies Allergy (Verified 10/31/19 11:35) Home Medications: Ambulatory Orders Medication Instructions Recorded Clozapine [Clozaril] 100 mg PO LUNCH 03/28/14 Risperidone [Risperdal] 2 mg PO QHS 03/28/14 glipiZIDE [Glucotrol] 5 mg PO BIDAC 03/28/14 metFORMIN HCl [Glucophage] 1,000 mg PO BID 03/28/14 Clozapine [Clozaril] 300 mg PO QHS 12/23/14 Insulin Glargine [Lantus SoloStar 42 units SC DAILY 12/23/14 Pen] Desvenlafaxine Succinate [Pristiq] 50 mg PO DAILY 07/25/15 Risperidone Microspheres 50 mg IM Q14D 07/25/15 [Risperdal Consta] Pravastatin Sodium 20 mg PO QHS 12/18/16 Clozapine [Clozaril] 200 mg PO DINNER 10/11/17 Potassium Chloride [K-Dur] 20 meq PO DAILY #30 tab 10/16/17 Cholecalciferol (Vitamin D3) 1,000 unit PO DAILY 10/17/17 [Vitamin D3] [place]-3 Fatty Acids/Fish Oil [Fish 1 each PO DAILY 10/17/17 Oil 1,000 mg Capsule] Albuterol IH (ProAir) [Proair Hfa] 2 puff INHALATION PRN PRN 07/22/18 Aspirin [Aspirin EC] 325 mg PO DAILY 07/22/18 Clonazepam [Klonopin] 0.5 mg PO BREAKFAST 07/22/18 Clonazepam [Klonopin] 0.5 mg PO QHS 07/22/18 Clonazepam [Klonopin] 1 mg PO 1200 07/22/18 Ferrous Gluconate 325 mg PO BIDCM 07/22/18 Fluticasone/Vilanterol [Breo 1 puff IH DAILY 07/22/18 Ellipta 100-25 Mcg INH] Furosemide [Lasix] 20 mg PO DAILY 07/22/18 Lubiprostone [Amitiza] 24 mcg PO BID 07/22/18 Acetaminophen [Mapap] 500 - 1,000 mg PO TID PRN PRN 10/31/19 Magnesium Hydroxide [Milk Of 30 ml PO DAILY PRN PRN 10/31/19 Magnesia] Omeprazole 20 mg PO DAILY 10/31/19 Oxymetazoline HCl [Nasal Relief] 2 spray NS PRN PRN 10/31/19 Pramipexole Di-HCl [Mirapex] 0.5 mg PO QHS 10/31/19 Umeclidinium [place] Inhaler 1 puff IH DAILY 10/31/19 [Incruse Ellipta Inhaler] Wheat Dextrin [Benefiber] 15 ml PO DAILY 10/31/19 Surgical History: cholecystectomy, - - Jaw surgery Psychiatric History: Anxiety, Depression, Schizophrenia [employer] History: No pertinent [employer] history Lives: - - care home Smoking Status: Former smoker Alcohol: None Drugs: None - *Family History Paternal History Items: COPD, - - from a farm accident Maternal History Items: - - Denies known maternal medical history including cardiac history. Review of Systems Constitutional: Denies: Chills, Fever, Weight Change HEENT: Denies: Head Aches, Sinus Congestion, Sinus Drainage Cardiovascular: Denies: Chest Pain, Edema, Palpitations, Syncope Respiratory: Reports: Cough, Shortness of Breath, Sputum production, Wheezing Gastrointestinal: Denies: Abdominal Pain, Nausea, Vomiting Genitourinary: Denies: Dysuria Musculoskeletal: Denies: Joint Pain, Joint Tenderness Skin: Denies: Rash, Wounds Neurological: Denies: Numbness, Tingling, Focal weakness Psychiatric: Denies: Anxiety, Depression, Homicidal Ideations, Suicidal Ideations Hematologic/ Lymphatic: Denies: Easy Bruising, Easy Bleeding VTE Information - Inpt Only VTE Present on Admission: No VTE Mechan Device Prophylaxis: None VTE Pharm Prophylaxis ordered?: Yes Patient Problems: Active and Suspected Problems Community acquired pneumonia (Acute) Severe sepsis (Acute) Hypoxia (Acute) - Physical Exam Vitals/I&O's: Vital Signs Temp Pulse Resp BP Pulse Ox 98 F 101 H 22 H 126/81 H 97 10/31/19 13:12 10/31/19 13:12 10/31/19 13:12 10/31/19 13:12 10/31/19 13:12 Oxygen Flow Rate (L/min) 2 Oxygen Delivery Method Nasal Cannula Weight: 203 lb 14.841 oz Body Mass Index (BMI) 38.5 Intake and Output for Last 24 Hours 10/29/19 10/30/19 10/31/19 23:59 23:59 23:59 Intake Total 2098.95 / 2098.95 Balance 2098. / 2098. General: Alert, Oriented x3, Cooperative HEENT: Atraumatic, PERRLA, EOMI, Normocephalic Oral: Dry Mucosa Neck: Supple, No JVD, Negative Carotid Bruits Lungs: Diminished, - - Coarse breath sounds throughout Cardiovascular: Regular Rhythm, Normal S1, Normal S2, No murmurs, Tachycardic Abdomen: Bowel Sounds Present, Soft, Non Tender, Non-Distended, Obese Extremities: No clubbing, No cyanosis, No edema, Capillary Refill Less than 3 Seconds Skin: No rashes, No breakdown Musculoskeletal: No Tenderness to Palpation of Joints or Extremities Neurological: Cranial nerves II-XII grossly intact, Neuro grossly intact Psych/Mental Status: Normal Affect, Appropriate Microbiology Past 72 Hours 10/31/19 10:10 Mucosa - Nose Influenza Types A,B Direct FA (ISHAN) - Final Laboratory Results 10/31/19 10:00: WBC 20.3 H, RBC 4.10 L, Hgb 12.0, Hct 36.7 L, MCV 89.5, MCH 29.3, MCHC 32.7, RDW Std Deviation 45.1 H, RDW Coeff of Tyesha 13.9, Plt Count 209, MPV 10.1, Immature Gran % (Auto) 0.600, Neut % (Auto) 81.9 H, Lymph % (Auto) 10.8 L, [place] % (Auto) 6.1, Eos % (Auto) 0.4, Baso % (Auto) 0.2, Absolute Neuts (auto) 16.7 H, Absolute Lymphs (auto) 2.19, Nucleated RBC % 0 10/31/19 10:00: PT 14.3, INR 1.1, APTT 39.3 H 10/31/19 10:00: Sodium 130 L, Potassium 3.5, Chloride 97 L, Carbon Dioxide 23.0, Anion Gap 10, BUN 9, Creatinine 0.75, Estim Creat Clear Calc 63.95, Est GFR (MDRD) Af Amer 103, Est GFR (MDRD) Non-Af 85, BUN/Creatinine Ratio 12.0, Glucose 202 H, Calcium 9.2, Total Bilirubin 0.60, AST 31, ALT 60 H, Alkaline Phosphatase 140 H, Total Protein 8.0, Albumin 3.4, Globulin 4.6 H, Albumin/Globulin Ratio 0.7 L 10/31/19 10:00: Lactic Acid 2.1 H* 10/31/19 10:40: Urine Color Yellow, Urine Clarity Clear, Urine pH 6.5, Ur Specific [place] 1.010, Urine Protein Negative, Urine Glucose (UA) Normal, Urine Ketones Negative, Urine Occult Blood Negative, Urine Nitrite Negative, Urine Bilirubin Negative, Urine Urobilinogen Normal, Ur Leukocyte Esterase Negative, Urine RBC 0 SEEN, Urine WBC 0 SEEN, Ur Squamous Epith Cells 0-5 SEEN, Urine Bacteria 0 SEEN, Hyaline Casts 0-5 SEEN, Urine Mucus 0 SEEN Assessment/Plan All Active Problems Community acquired pneumonia (Acute) Severe sepsis (Acute) Hypoxia (Acute) 1. Severe sepsis secondary to community-acquired pneumonia-chest x-ray on admission with left upper lobe pneumonia. WBC 20.3. Lactic acid 2.1. Tachycardic and tachypneic. Check urine for strep and Legionella. Blood culture pending. Respiratory panel pending. Continue IV azithromycin and IV Rocephin. Albuterol and DuoNeb aerosols. Send sputum for culture. 2. Chronic COPD with chronic hypoxic respiratory failure-Albuterol and DuoNeb aerosols. Patient wears 2 L nasal cannula at baseline. Continue supplement oxygen to maintain O2 at or above 90%. 3. Type 2 diabetes mellitus-hold oral regimen. Accu-Chek ACHS with SSI. 4. Hyperlipidemia-continue statin. 5. Schizophrenia/Depression/Anxiety- continue home medication regimen. 6. LIDA- continue home CPAP regimen. DVT prophylaxis- Lovenox This patient was seen by DINORA Calvin under the supervision of Dr. Lebron.
[2019-10-31 14:10] LABS: Reflex Lactate? Y
[2019-10-31 15:14] LABS: Lactic Acid 1.3 mmol/L (0.4-1.9)
[2019-10-31] MEDS: 0.9% Normal Saline 1,000 ML 75 ML IV (16:07)
[2019-10-31] MEDS: Ferrous Gluconate 324 MG Tablet PO (17:09)
[2019-10-31] MEDS: metFORMIN HCl 1,000 MG Tablet 1000 MG PO (17:09)
[2019-10-31] MEDS: Insulin Lispro 100 UNIT/ML INSULN.PEN SC ×2 (17:10→22:57)
[2019-10-31] MEDS: glipiZIDE 5 MG Tablet PO (17:10)
[2019-10-31 17:30] LABS: Bedside Glucose 307 mg/dL (70-110)
[2019-10-31] MEDS: Pramipexole Di-HCl 0.5 MG Tablet PO (22:56)
[2019-10-31] MEDS: clonazePAM 0.5 MG Tablet PO (22:56)
[2019-10-31] MEDS: RisperiDONE 2 MG Tablet PO (22:58)
[2019-10-31] MEDS: Pravastatin 20 MG Tablet PO (22:58)
[2019-10-31 23:15] LABS: Bedside Glucose 254 mg/dL (70-110)
[2019-11-01] VITALS (12 sets, daily range): BP systolic 107–134; BP diastolic 59–84; PULSE 84–105; RESP 16–20; TEMP 36.4–37.2; O2SAT 96–99
[2019-11-01] MEDS: Acetaminophen 325 MG Tablet 650 MG PO (03:39)
[2019-11-01 06:19] LABS: Absolute Neutrophil Count 12.8 X10^3/uL (2.0-7.7); Basophil# 0.01 X10^3/uL; Basophil% 0.1 % (0-1); Hematocrit 33.9 % (37-47); Hemoglobin 10.9 g/dL (12.0-15.0); Lymphocyte % 12.1 % (19-41); Mean Corp Hgb Conc 32.2 g/dL (32-36); Mean Corpuscular Hgb 29.5 pg (27.0-32.0); Mean Corpuscular Volume 91.9 fL (81-99); Mean Platelet Vol. 10.4 fl (6.2-12.0); Monocyte% 5.1 % (0-10); NRBC Flagged by Analyzer 0 % (0-5); Neutrophil # 12.78 X10^3/uL (2.7-7.7); Neutrophil % 81.6 % (47-70); POSITIVE COUNT YES; Platelet Count 181 K/mm3 (150-450); RBC Distribution Width CV 13.8 % (11.6-14.6); RBC Distribution Width SD 46.6 fl (35.1-43.9); Red Blood Count 3.69 M/mm3 (4.2-5.4); White Blood Count 15.7 K/mm3 (4.4-11.0)
--- NOTE | 2019-11-01 06:25 | RAD_ITS ---
STUDY: X-RAY CHEST REASON FOR EXAM: Female, 53 years old. Pneumonia TECHNIQUE: PA and lateral views of the chest. COMPARISON: Comparison is made with prior examination dated October 31, 2019. FINDINGS: EKG electrodes are seen. The previously seen bilateral perihilar infiltrates have improved. Residual changes persist. There is no demonstrated pleural abnormality. Normal size heart. Normal mediastinum and reshma. Normal visualized pulmonary arteries. Normal visualized aortic arch and descending thoracic aorta. There is demineralization of the osseous structures. Normal visualized ribs, clavicles, and shoulders. There is no demonstrated abnormality of the visualized soft tissue structures of the upper abdomen. RAD/Chest PA and Lateral IMPRESSION: Interval improvement of the bilateral patchy infiltrates. Further follow-up is recommended. Electronically Signed: Trenton Sanchez, at 9:53 EST , Service support ,
[2019-11-01 06:38] LABS: Differential Indicated SCAN CRITERIA MET
[2019-11-01] MEDS: Ipratropium/Albuterol Sulfate 3 ML AMPUL.NEB INHALATION ×3 (06:49→19:23)
[2019-11-01] MEDS: glipiZIDE 5 MG Tablet PO ×2 (06:59→15:10)
[2019-11-01 07:00] LABS: Bedside Glucose 185 mg/dL (70-110)
[2019-11-01] MEDS: Insulin Lispro 100 UNIT/ML INSULN.PEN SC ×4 (07:00→21:14)
[2019-11-01 07:25] LABS: Differential Comment SCANNED
[2019-11-01] MEDS: metFORMIN HCl 1,000 MG Tablet 1000 MG PO ×2 (09:06→16:46)
[2019-11-01] MEDS: Ferrous Gluconate 324 MG Tablet PO ×2 (09:06→16:45)
[2019-11-01] MEDS: Pantoprazole Sodium 20 MG Tablet PO (09:06)
[2019-11-01] MEDS: Aspirin E.C. 325 MG Tablet PO (09:06)
[2019-11-01] MEDS: Furosemide 20 MG Tablet PO (09:07)
[2019-11-01] MEDS: clonazePAM 0.5 MG Tablet PO ×2 (09:07→21:07)
[2019-11-01] MEDS: Ceftriaxone 1 GM/50 ML BAG IV (09:59)
[2019-11-01] MEDS: clonazePAM 0.5 MG Tablet 1 MG PO (11:15)
[2019-11-01] MEDS: Venlafaxine XR 37.5 MG Capsule PO (11:15)
[2019-11-01 11:30] LABS: Bedside Glucose 239 mg/dL (70-110)
--- NOTE | 2019-11-01 12:31 | PCM.PROGNOTE ---
<Zaira Whitmore - Last Filed: 11/01/19 12:44> Patient Problems: Active and Suspected Problems Community acquired pneumonia (Acute) Severe sepsis (Acute) Hypoxia (Acute) Subjective: Patient seen and examined. Reports continued shortness of breath. Denies fever/chills. Cough non-productive. - Physical Exam Vitals/I&O's: Vital Signs Temp Pulse Resp BP Pulse Ox 98.9 F 88 18 132/82 H 99 11/01/19 09:05 11/01/19 09:05 11/01/19 09:05 11/01/19 09:05 11/01/19 09:05 Oxygen Flow Rate (L/min) 2 Oxygen Delivery Method Nasal Cannula Weight: 202 lb 9.289 oz Body Mass Index (BMI) 38.2 Intake and Output for Last 24 Hours 10/30/19 10/31/19 11/01/19 23:59 23:59 23:59 Intake Total 3563.70 / 3563.70 1666.25 / 1666.25 Output Total 500 / 500 400 / 400 Balance 3063.70 / 3063.70 1266.25 / 1266.25 General: Alert, Oriented x3, Cooperative HEENT: Atraumatic, PERRLA, EOMI, Normocephalic Neck: Supple, No JVD, Negative Carotid Bruits Lungs: Diminished, Wheezes Cardiovascular: Regular rate, Regular Rhythm, Normal S1, Normal S2, No murmurs Abdomen: Bowel Sounds Present, Soft, Non Tender, Non-Distended Extremities: No clubbing, No cyanosis, No edema, Capillary Refill Less than 3 Seconds Skin: No rashes, No breakdown Musculoskeletal: No Tenderness to Palpation of Joints or Extremities Neurological: Cranial nerves II-XII grossly intact, Neuro grossly intact Psych/Mental Status: Normal Affect, Appropriate Microbiology Past 72 Hours 10/31/19 10:40 Urine, Catheterized Urine Culture - Preliminary Culture exhibits no growth. 10/31/19 10:10 Mucosa - Nose Respiratory Panel (PCR) - Final 10/31/19 23:13 Urine, Clean Catch Streptococcus pneumoniae Antigen (M - Final 10/31/19 23:13 Urine, Random Legionella Antigen - Final 10/31/19 10:10 Mucosa - Nose Influenza Types A,B Direct FA (ISHAN) - Final Laboratory Results 10/31/19 14:40: Lactic Acid 1.3 10/31/19 16:11: POC Glucose 307 H 10/31/19 22:55: POC Glucose 254 H 11/01/19 05:45: WBC 15.7 H, RBC 3.69 L, Hgb 10.9 L, Hct 33.9 L, MCV 91.9, MCH 29.5, MCHC 32.2, RDW Std Deviation 46.6 H, RDW Coeff of Tyesha 13.8, Plt Count 181, MPV 10.4, Immature Gran % (Auto) 1.100 H, Neut % (Auto) 81.6 H, Lymph % (Auto) 12.1 L, [place] % (Auto) 5.1, Eos % (Auto) 0.0, Baso % (Auto) 0.1, Absolute Neuts (auto) 12.8 H, Absolute Lymphs (auto) 1.90, Nucleated RBC % 0, Differential Comment SCANNED 11/01/19 06:57: POC Glucose 185 H 11/01/19 11:09: POC Glucose 239 H Current Medications Acetaminophen (Tylenol) 650 mg PO Q6H PRN PRN PRN Reason: Pain Score 1-3/Temp > 100.7 F Last Admin: 11/01/19 03:39 Dose: 650 mg Documented by: Albuterol Sulfate (Ventolin Aerosols) 2.5 mg INHALATION Q2H PRN PRN PRN Reason: DYSPNEA Albuterol/Ipratropium (Duoneb) 3 ml INHALATION Q6H.RT [facility] Last Admin: 11/01/19 06:49 Dose: 3 ml Documented by: Aspirin (Ecotrin) 325 mg PO DAILY@0800 [facility] Last Admin: 11/01/19 09:06 Dose: 325 mg Documented by: Clonazepam (Klonopin) 1 mg PO 1200 [facility] Last Admin: 11/01/19 11:15 Dose: 1 mg Documented by: Clonazepam (Klonopin) 0.5 mg PO BREAKFAST [facility] Last Admin: 11/01/19 09:07 Dose: 0.5 mg Documented by: Clonazepam (Klonopin) 0.5 mg PO QHS [facility] Last Admin: 10/31/19 22:56 Dose: 0.5 mg Documented by: Clozapine (Clozaril) 100 mg PO LUNCH [facility] Clozapine (Clozaril) 200 mg PO DINNER [facility] Last Admin: 10/31/19 18:24 Dose: 200 mg Documented by: Clozapine (Clozaril) 300 mg PO QHS [facility] Last Admin: 10/31/19 22:56 Dose: 300 mg Documented by: Ferrous Gluconate (Ferrous Gluconate) 324 mg PO BIDCM [facility] Last Admin: 11/01/19 09:06 Dose: 324 mg Documented by: Furosemide (Lasix) 20 mg PO DAILY [facility] Last Admin: 11/01/19 09:07 Dose: 20 mg Documented by: Glipizide (Glucotrol) 5 mg PO BIDAC [facility] Last Admin: 11/01/19 06:59 Dose: 5 mg Documented by: Glucagon () 1 mg IM .X1 PRN PRN Reason: Hypoglycemia Ceftriaxone Sodium (Rocephin) 1 gm in 50 mls @ 100 mls/hr IV Q24 [facility] Last Infusion: 11/01/19 10:35 Dose: Infused Documented by: Azithromycin 500 mg/ Dextrose 255 mls @ 250 mls/hr IV Q24 [facility] Last Infusion: 11/01/19 12:15 Dose: Infused Documented by: Dextrose (Dextrose 10%-Water) 250 mls @ 999 mls/hr IV .Q16M PRN; Protocol PRN Reason: HYPOGLYCEMIA Insulin Glargine (Lantus (Bk)) 42 units SC DAILY@1600 [facility] Insulin Human Lispro (Humalog Kwik[facility] (Bk)) [facility]; [facility] Last Admin: 11/01/19 11:12 Dose: 6 units Documented by: Magnesium Hydroxide (Milk Of Magnesia) 30 ml PO DAILY PRN PRN PRN Reason: Constipation [facility]) [facility] Last Admin: 11/01/19 09:06 Dose: 1,000 mg Documented by: Oxymetazoline HCl (Afrin (Bk)) 2 spray NS BID PRN PRN PRN Reason: CONGESTION Pantoprazole Sodium (Protonix) 20 mg PO DAILY [facility] Last Admin: 11/01/19 09:06 Dose: 20 mg Documented by: Potassium Chloride (K-Dur) 20 meq PO DAILY@0800 [facility] Last Admin: 11/01/19 09:06 Dose: 20 meq Documented by: Pramipexole Dihydrochloride (Mirapex) 0.5 mg PO QHS [facility] Last Admin: 10/31/19 22:56 Dose: 0.5 mg Documented by: Pravastatin Sodium (Pravachol) 20 mg PO QHS [facility] Last Admin: 10/31/19 22:58 Dose: 20 mg Documented by: Risperidone (Risperdal) 2 mg PO QHS [facility] Last Admin: 10/31/19 22:58 Dose: 2 mg Documented by: Sodium Chloride () 10 - 40 ml IV UD PRN PRN Reason: SALINE FLUSH Venlafaxine HCl (Effexor Xr) 37.5 mg PO DAILY [facility] Last Admin: 11/01/19 11:15 Dose: 37.5 mg Documented by: Medical Necessity - Tobacco Use Smoking Status: Former smoker Assessment/Plan All Active Problems Community acquired pneumonia (Acute) Severe sepsis (Acute) Hypoxia (Acute) 1. Severe sepsis secondary to community-acquired pneumonia-chest x-ray on admission with left upper lobe pneumonia. Urine for strep and Legionella negative. Blood culture pending. Respiratory panel negative. Continue IV azithromycin and IV Rocephin. Albuterol and DuoNeb aerosols. Send sputum for culture. 2. Acute exacerbation of Chronic COPD, secondary to #1 with chronic hypoxic respiratory failure-Albuterol and DuoNeb aerosols. Patient wears 2 L nasal cannula at baseline. Continue supplement oxygen to maintain O2 at or above 90%. Begin IV Solu-Medrol given significant wheezing on exam. Respiratory panel negative. 3. Type 2 diabetes mellitus-hold oral regimen. Accu-Chek ACHS with SSI. 4. Hyperlipidemia-continue statin. 5. Schizophrenia/Depression/Anxiety- continue home medication regimen. 6. LIDA- continue home CPAP regimen. DVT prophylaxis- Lovenox This patient was seen by DINORA Calvin under the supervision of Dr. Sorto. <Sary Sorto - Last Filed: 11/01/19 19:45> - Physical Exam Vitals/I&O's: Vital Signs Temp Pulse Resp BP Pulse Ox 98.9 F 101 H 16 132/82 H 99 11/01/19 09:05 11/01/19 13:11 11/01/19 13:11 11/01/19 09:05 11/01/19 09:05 Oxygen Flow Rate (L/min) 1 Oxygen Delivery Method Nasal Cannula Weight: 91.889 kg Body Mass Index (BMI) 38.2 Intake and Output for Last 24 Hours 10/30/19 10/31/19 11/01/19 23:59 23:59 23:59 Intake Total 3563.70 / 3563.70 1666.25 / 1666.25 Output Total 500 / 500 400 / 400 Balance 3063.70 / 3063.70 1266.25 / 1266.25 Microbiology Past 72 Hours 10/31/19 10:40 Urine, Catheterized Urine Culture - Preliminary Culture exhibits no growth. 10/31/19 10:10 Mucosa - Nose Respiratory Panel (PCR) - Final 10/31/19 23:13 Urine, Clean Catch Streptococcus pneumoniae Antigen (M - Final 10/31/19 23:13 Urine, Random Legionella Antigen - Final 10/31/19 10:10 Mucosa - Nose Influenza Types A,B Direct FA (ISHAN) - Final Laboratory Results 10/31/19 16:11: POC Glucose 307 H 10/31/19 22:55: POC Glucose 254 H 11/01/19 05:45: WBC 15.7 H, RBC 3.69 L, Hgb 10.9 L, Hct 33.9 L, MCV 91.9, MCH 29.5, MCHC 32.2, RDW Std Deviation 46.6 H, RDW Coeff of Tyesha 13.8, Plt Count 181, MPV 10.4, Immature Gran % (Auto) 1.100 H, Neut % (Auto) 81.6 H, Lymph % (Auto) 12.1 L, [place] % (Auto) 5.1, Eos % (Auto) 0.0, Baso % (Auto) 0.1, Absolute Neuts (auto) 12.8 H, Absolute Lymphs (auto) 1.90, Nucleated RBC % 0, Differential Comment SCANNED 11/01/19 06:57: POC Glucose 185 H 11/01/19 11:09: POC Glucose 239 H Current Medications Acetaminophen (Tylenol) 650 mg PO Q6H PRN PRN PRN Reason: Pain Score 1-3/Temp > 100.7 F Last Admin: 11/01/19 03:39 Dose: 650 mg Documented by: Albuterol Sulfate (Ventolin Aerosols) 2.5 mg INHALATION Q2H PRN PRN PRN Reason: DYSPNEA Albuterol/Ipratropium (Duoneb) 3 ml INHALATION Q6H.RT [facility] Last Admin: 11/01/19 13:11 Dose: 3 ml Documented by: Aspirin (Ecotrin) 325 mg PO DAILY@0800 [facility] Last Admin: 11/01/19 09:06 Dose: 325 mg Documented by: Clonazepam (Klonopin) 1 mg PO 1200 [facility] Last Admin: 11/01/19 11:15 Dose: 1 mg Documented by: Clonazepam (Klonopin) 0.5 mg PO BREAKFAST [facility] Last Admin: 11/01/19 09:07 Dose: 0.5 mg Documented by: Clonazepam (Klonopin) 0.5 mg PO QHS [facility] Last Admin: 10/31/19 22:56 Dose: 0.5 mg Documented by: Clozapine (Clozaril) 100 mg PO LUNCH [facility] Last Admin: 11/01/19 15:13 Dose: Not Given Documented by: Clozapine (Clozaril) 200 mg PO DINNER [facility] Last Admin: 10/31/19 18:24 Dose: 200 mg Documented by: Clozapine (Clozaril) 300 mg PO QHS [facility] Last Admin: 10/31/19 22:56 Dose: 300 mg Documented by: Ferrous Gluconate (Ferrous Gluconate) 324 mg PO BIDCM [facility] Last Admin: 11/01/19 09:06 Dose: 324 mg Documented by: Furosemide (Lasix) 20 mg PO DAILY [facility] Last Admin: 11/01/19 09:07 Dose: 20 mg Documented by: Glipizide (Glucotrol) 5 mg PO BIDAC [facility] Last Admin: 11/01/19 15:10 Dose: 5 mg Documented by: Glucagon () 1 mg IM .X1 PRN PRN Reason: Hypoglycemia Guaifenesin (Mucinex) 1,200 mg PO BID [facility] Ceftriaxone Sodium (Rocephin) 1 gm in 50 mls @ 100 mls/hr IV Q24 [facility] Last Infusion: 11/01/19 10:35 Dose: Infused Documented by: Azithromycin 500 mg/ Dextrose 255 mls @ 250 mls/hr IV Q24 [facility] Last Infusion: 11/01/19 12:15 Dose: Infused Documented by: Dextrose (Dextrose 10%-Water) 250 mls @ 999 mls/hr IV .Q16M PRN; Protocol PRN Reason: HYPOGLYCEMIA Insulin Glargine (Lantus ([facility])) 42 units SC DAILY@1600 [facility] Insulin Human Lispro (Humalog Kwikpen ([facility])) 0 unit SC ACHS [facility]; Protocol Last Admin: 11/01/19 15:13 Dose: 3 units Documented by: Magnesium Hydroxide (Milk Of Magnesia) 30 ml PO DAILY PRN PRN PRN Reason: Constipation Metformin HCl (Glucophage) 1,000 mg PO BIDCM [facility] Last Admin: 11/01/19 09:06 Dose: 1,000 mg Documented by: Methylprednisolone (Solu-Medrol) 40 mg IV Q8 [facility] Oxymetazoline HCl (Afrin (Bkc)) 2 spray NS BID PRN PRN PRN Reason: CONGESTION Pantoprazole Sodium (Protonix) 20 mg PO DAILY [facility] Last Admin: 11/01/19 09:06 Dose: 20 mg Documented by: Potassium Chloride (K-Dur) 20 meq PO DAILY@0800 [facility] Last Admin: 11/01/19 09:06 Dose: 20 meq Documented by: Pramipexole Dihydrochloride (Mirapex) 0.5 mg PO QHS [facility] Last Admin: 10/31/19 22:56 Dose: 0.5 mg Documented by: Pravastatin Sodium (Pravachol) 20 mg PO QHS [facility] Last Admin: 10/31/19 22:58 Dose: 20 mg Documented by: Risperidone (Risperdal) 2 mg PO QHS [facility] Last Admin: 10/31/19 22:58 Dose: 2 mg Documented by: Sodium Chloride () 10 - 40 ml IV UD PRN PRN Reason: SALINE FLUSH Venlafaxine HCl (Effexor Xr) 37.5 mg PO DAILY [facility] Last Admin: 11/01/19 11:15 Dose: 37.5 mg Documented by: Assessment/Plan This patient was seen in conjunction with Zaira Whitmore NP. I have independently interviewed and examined the patient and reviewed pertinent historical, laboratory, and other data. Please refer to her note for patient's presentation, findings, and recommendations. Patient was seen and examined. On 3L oxygen. Denies any new complains Vitals were reviewed -stable Physical Exam: Gen: Looks in some discomfort,ill-looking, not pale, not jaundiced, alert oriented x3 CVS:HS I +II, regular, no murmurs RESP: Diminished at lung bases GI: BS present and normal, nontender, no palpable organs EXT:No edema Labs reviewed: ASSESSMENT: 1. severe sepsis 2. CAP 3. Acute COPD exacerbation 4. LIDA 5. Type 2 DM 6. Schizoaffective disorder Meds reviewed Plan: Continue IV antibiotics, IV steroids Labs in am
[2019-11-01 15:21] LABS: Bedside Glucose 173 mg/dL (70-110)
[2019-11-01 20:35] LABS: Bedside Glucose 328 mg/dL (70-110)
[2019-11-01] MEDS: Pravastatin 20 MG Tablet PO (21:07)
[2019-11-01] MEDS: guaiFENesin 1,200 MG Tablet 1200 MG PO (21:07)
[2019-11-01] MEDS: Pramipexole Di-HCl 0.5 MG Tablet PO (21:07)
[2019-11-01] MEDS: 0.9% Saline Lock 10 ML Syringe IV (21:08)
[2019-11-01] MEDS: RisperiDONE 2 MG Tablet PO (21:14)
[2019-11-02] VITALS (7 sets, daily range): BP systolic 99–134; BP diastolic 51–78; PULSE 92–101; RESP 16–22; TEMP 36.6–36.7; O2SAT 97–100
[2019-11-02] MEDS: Ipratropium/Albuterol Sulfate 3 ML AMPUL.NEB INHALATION ×3 (01:10→13:14)
[2019-11-02] MEDS: 0.9% Saline Lock 10 ML Syringe IV (05:26)
[2019-11-02 06:05] LABS: Hematocrit 35.6 % (37-47); Hemoglobin 11.1 g/dL (12.0-15.0); Mean Corp Hgb Conc 31.2 g/dL (32-36); Mean Corpuscular Hgb 28.8 pg (27.0-32.0); Mean Corpuscular Volume 92.5 fL (81-99); Platelet Count 219 K/mm3 (150-450); RBC Distribution Width CV 14.1 % (11.6-14.6); RBC Distribution Width SD 47.8 fl (35.1-43.9); Red Blood Count 3.85 M/mm3 (4.2-5.4); White Blood Count 16.7 K/mm3 (4.4-11.0)
[2019-11-02 06:26] LABS: Anion Gap 6 (5-15); BUN 14 mg/dL (7-18); BUN/Creat Ratio 22.8 RATIO (10-20); Chloride 103 mmol/L (98-107); Creatinine, Serum 0.61 mg/dL (0.55-1.02); EST Glomerular Filtration Rate 107 mL/min (>60); Est Glom Filt Rate - Afr Amer 130 mL/min (>60); Estimated Creatinine Clearance 78.63 ml/min; Glucose 248 mg/dL (74-106); Potassium 4.3 mmol/L (3.5-5.1); Sodium Level 137 mmol/L (136-145)
[2019-11-02] MEDS: Insulin Lispro 100 UNIT/ML INSULN.PEN SC ×2 (06:39→11:31)
[2019-11-02 06:46] LABS: Bedside Glucose 251 mg/dL (70-110)
[2019-11-02] MEDS: glipiZIDE 5 MG Tablet PO (08:50)
[2019-11-02] MEDS: Aspirin E.C. 325 MG Tablet PO (08:51)
[2019-11-02] MEDS: metFORMIN HCl 1,000 MG Tablet 1000 MG PO (08:51)
[2019-11-02] MEDS: Ferrous Gluconate 324 MG Tablet PO (08:51)
[2019-11-02] MEDS: guaiFENesin 1,200 MG Tablet 1200 MG PO (08:52)
[2019-11-02] MEDS: Venlafaxine XR 37.5 MG Capsule PO (08:52)
[2019-11-02] MEDS: Furosemide 20 MG Tablet PO (08:52)
[2019-11-02] MEDS: Pantoprazole Sodium 20 MG Tablet PO (08:52)
[2019-11-02] MEDS: clonazePAM 0.5 MG Tablet PO (08:54)
[2019-11-02] MEDS: Ceftriaxone 1 GM/50 ML BAG IV (10:00)
[2019-11-02] MEDS: clonazePAM 0.5 MG Tablet 1 MG PO (11:31)
[2019-11-02 11:36] LABS: Bedside Glucose 380 mg/dL (70-110)
--- NOTE | 2019-11-02 11:36 | PCM.DC ---
- Discharge Diagnoses Current Active Problems: Current Active and Chronic Problems Community acquired pneumonia (Acute) Severe sepsis (Acute) Hypoxia (Acute) COPD (chronic obstructive pulmonary disease) (Chronic) You will use the following diet at home:: Calorie/Carbohydrate Controlled (specify 1200, 1400, etc) Discharge Activity: Return to Normal Activity Call your doctor if you observe: Fever of 101 or Higher, Shortness of breath, Dizziness, Fainting spells, Chest pain Allergies/Adverse Reactions: Allergies No Known Allergies Allergy (Verified 10/31/19 11:35) Medications to take at Discharge Clozapine [Clozaril] 100 mg PO LUNCH 03/28/14 Risperidone [Risperdal] 2 mg PO QHS 03/28/14 glipiZIDE [Glucotrol] 5 mg PO BIDAC 03/28/14 metFORMIN HCl [Glucophage] 1,000 mg PO BID 03/28/14 Clozapine [Clozaril] 300 mg PO QHS 12/23/14 Insulin Glargine [Lantus SoloStar Pen] 42 units SC DAILY 12/23/14 Desvenlafaxine Succinate [Pristiq] 50 mg PO DAILY 07/25/15 Risperidone Microspheres [Risperdal Consta] 50 mg IM Q14D 07/25/15 Pravastatin Sodium 20 mg PO QHS 12/18/16 Clozapine [Clozaril] 200 mg PO DINNER 10/11/17 Potassium Chloride [K-Dur] 20 meq PO DAILY #30 tab 10/16/17 Cholecalciferol (Vitamin D3) [Vitamin D3] 1,000 unit PO DAILY 10/17/17 [place]-3 Fatty Acids/Fish Oil [Fish Oil 1,000 mg Capsule] 1 each PO DAILY 10/17/17 Albuterol IH (ProAir) [Proair Hfa] 2 puff INHALATION PRN PRN 07/22/18 Aspirin [Aspirin EC] 325 mg PO DAILY 07/22/18 Clonazepam [Klonopin] 0.5 mg PO BREAKFAST 07/22/18 Clonazepam [Klonopin] 0.5 mg PO QHS 07/22/18 Clonazepam [Klonopin] 1 mg PO 1200 07/22/18 Ferrous Gluconate 325 mg PO BIDCM 07/22/18 Fluticasone/Vilanterol [Breo Ellipta 100-25 Mcg INH] 1 puff IH DAILY 07/22/18 Furosemide [Lasix] 20 mg PO DAILY 07/22/18 Lubiprostone [Amitiza] 24 mcg PO BID 07/22/18 Acetaminophen [Mapap] 500 - 1,000 mg PO TID PRN PRN 10/31/19 Magnesium Hydroxide [Milk Of Magnesia] 30 ml PO DAILY PRN PRN 10/31/19 Omeprazole 20 mg PO DAILY 10/31/19 Oxymetazoline HCl [Nasal Relief] 2 spray NS PRN PRN 10/31/19 Pramipexole Di-HCl [Mirapex] 0.5 mg PO QHS 10/31/19 Umeclidinium [place] Inhaler [Incruse Ellipta Inhaler] 1 puff IH DAILY 10/31/19 Wheat Dextrin [Benefiber] 15 ml PO DAILY 10/31/19 Amox/Clavulanate Tablet [Augmentin Tablet] 875 mg PO Q12H #14 tab 11/02/19 Prednisone See Taper PO DAILY #30 tab 11/02/19 The following prescriptions were given: Amox/Clavulanate Tablet [Augmentin Tablet] 875 mg PO Q12H #14 tab Transmission Status: Pending to [facility] - [id number] Prednisone See Taper PO DAILY #30 tab Transmission Status: Pending to [facility] - [id number] Primary Care Physician: Boris Vance MD [Primary Care Provider] - Please follow up with your Primary Care Physician in: 3-5 Days Test Results: Test results from this visit will be discussed in further detail at your follow-up appointment, if applicable. Proposed Discharge Date: 11/02/19
--- NOTE | 2019-11-02 11:38 | DS.PCM_ITS ---
<Zaira Whitmore - Last Filed: 11/02/19 11:42> Discharge Date and Diagnosis Date of Admission: 10/31/19 Date of Discharge: 11/02/19 - Primary Discharge Diagnosis Active and Suspected Problems 1. Severe sepsis secondary to community-acquired pneumonia 2. Acute exacerbation of Chronic COPD, secondary to #1 with chronic hypoxic respiratory failure 3. Type 2 diabetes mellitus 4. Hyperlipidemia 5. Schizophrenia/Depression/Anxiety 6. LIDA - Secondary Discharge Diagnosis Chronic Problems FTT (failure to thrive) in adult (Chronic) COPD (chronic obstructive pulmonary disease) (Chronic) Hyperlipidemia (Chronic) Diabetes mellitus type 2 in obese (Chronic) HTN (hypertension) (Chronic) Schizophrenia (Chronic) Hospital Course and Treatment Imaging Results: Diagnostic Data Chest X-Ray 11/01/19 06:25 IMPRESSION: Interval improvement of the bilateral patchy infiltrates. Further follow-up is recommended. Electronically Signed: Trenton Laura, at 9:53 EST , Service support , Operations: None Procedures: None Summary of Care Provided: The patient is a 53 year old F admitted 10/31/19 due to shortness of breath and cough. 1. Severe sepsis secondary to community-acquired pneumonia-chest x-ray on admission with left upper lobe pneumonia. Urine for strep and Legionella negative. Blood culture shows no growth. Respiratory panel negative. IV azithromycin and IV Rocephin during admission. Discharge on Augmentin 875 mg twice daily for 7 days. Follow-up with primary care provider in 3 to 5 days. 2. Acute exacerbation of Chronic COPD, secondary to #1 with chronic hypoxic respiratory failure-. Albuterol inhaler. Patient wears 3 L nasal cannula at baseline. Continue supplement oxygen to maintain O2 at or above 90%. Respiratory panel negative. Prednisone taper at discharge. 3. Type 2 diabetes mellitus-continue home oral and insulin regimen. 4. Hyperlipidemia-continue statin. 5. Schizophrenia/Depression/Anxiety- continue home medication regimen. 6. LIDA- continue home CPAP regimen. General: Alert, Oriented x3, Cooperative HEENT: Atraumatic, PERRLA, EOMI, Normocephalic Neck: Supple, No JVD, Negative Carotid Bruits Lungs: Diminished, Wheezes Cardiovascular: Regular rate, Regular Rhythm, Normal S1, Normal S2, No murmurs Abdomen: Bowel Sounds Present, Soft, Non Tender, Non-Distended Extremities: No clubbing, No cyanosis, No edema, Capillary Refill Less than 3 Seconds Skin: No rashes, No breakdown Musculoskeletal: No Tenderness to Palpation of Joints or Extremities Neurological: Cranial nerves II-XII grossly intact, Neuro grossly intact Psych/Mental Status: Normal Affect, Appropriate Patient seen and examined prior to discharge. Physical assessment as noted above. Patient is stable for discharge with follow up recommendations as noted above. This patient was seen by DINORA Calvin under the supervision of Dr. Sorto. - Physical Exam Vitals/I&O's: Vital Signs Temp Pulse Resp BP Pulse Ox 97.8 F 92 18 134/78 H 97 11/02/19 09:02 11/02/19 09:02 11/02/19 09:02 11/02/19 09:02 11/02/19 09:02 Oxygen Flow Rate (L/min) 2 Oxygen Delivery Method Nasal Cannula Weight: 202 lb 9.289 oz Body Mass Index (BMI) 38.2 Intake and Output for Last 24 Hours 10/31/19 11/01/19 11/02/19 23:59 23:59 23:59 Intake Total 3563.70 / 3563.70 3096.25 / 3096.25 170 / 170 Output Total 500 / 500 2900 / 2900 200 / 200 Balance 3063.70 / 3063.70 196.25 / 196.25 -30 / -30 Microbiology Past 72 Hours 10/31/19 10:40 Urine, Catheterized Urine Culture - Preliminary Culture exhibits no growth. 10/31/19 10:10 Mucosa - Nose Respiratory Panel (PCR) - Final 10/31/19 23:13 Urine, Clean Catch Streptococcus pneumoniae Antigen (M - Final 10/31/19 23:13 Urine, Random Legionella Antigen - Final 10/31/19 10:10 Mucosa - Nose Influenza Types A,B Direct FA (ISHAN) - Final Laboratory Results 11/01/19 15:11: POC Glucose 173 H 11/01/19 20:26: POC Glucose 328 H 11/02/19 05:24: WBC 16.7 H, RBC 3.85 L, Hgb 11.1 L, Hct 35.6 L, MCV 92.5, MCH 28.8, MCHC 31.2 L, RDW Std Deviation 47.8 H, RDW Coeff of Tyesha 14.1, Plt Count 219, MPV 10.0 11/02/19 05:24: Sodium 137, Potassium 4.3, Chloride 103, Carbon Dioxide 28.0, Anion Gap 6, BUN 14, Creatinine 0.61, Estim Creat Clear Calc 78.63, Est GFR (MDRD) Af Amer 130, Est GFR (MDRD) Non-Af 107, BUN/Creatinine Ratio 22.8 H, Glucose 248 H, Calcium 9.0 11/02/19 06:37: POC Glucose 251 H 11/02/19 11:28: POC Glucose 380 H Current Medications Acetaminophen (Tylenol) 650 mg PO Q6H PRN PRN PRN Reason: Pain Score 1-3/Temp > 100.7 F Last Admin: 11/01/19 03:39 Dose: 650 mg Documented by: Albuterol Sulfate (Ventolin Aerosols) 2.5 mg INHALATION Q2H PRN PRN PRN Reason: DYSPNEA Albuterol/Ipratropium (Duoneb) 3 ml INHALATION Q6H.RT [facility] Last Admin: 11/02/19 06:58 Dose: 3 ml Documented by: Aspirin (Ecotrin) 325 mg PO DAILY@0800 [facility] Last Admin: 11/02/19 08:51 Dose: 325 mg Documented by: Clonazepam (Klonopin) 1 mg PO 1200 [facility] Last Admin: 11/02/19 11:31 Dose: 1 mg Documented by: Clonazepam (Klonopin) 0.5 mg PO BREAKFAST [facility] Last Admin: 11/02/19 08:54 Dose: 0.5 mg Documented by: Clonazepam (Klonopin) 0.5 mg PO QHS [facility] Last Admin: 11/01/19 21:07 Dose: 0.5 mg Documented by: Clozapine (Clozaril) 100 mg PO LUNCH [facility] Last Admin: 11/02/19 11:31 Dose: 100 mg Documented by: Clozapine (Clozaril) 200 mg PO DINNER [facility] Last Admin: 11/01/19 16:46 Dose: Not Given Documented by: Clozapine (Clozaril) 300 mg PO QHS [facility] Last Admin: 11/01/19 21:25 Dose: 300 mg Documented by: Ferrous Gluconate (Ferrous Gluconate) 324 mg PO BIDCM [facility] Last Admin: 11/02/19 08:51 Dose: 324 mg Documented by: Furosemide (Lasix) 20 mg PO DAILY [facility] Last Admin: 11/02/19 08:52 Dose: 20 mg Documented by: Glipizide (Glucotrol) 5 mg PO BIDAC [facility] Last Admin: 11/02/19 08:50 Dose: 5 mg Documented by: Glucagon () 1 mg IM .X1 PRN PRN Reason: Hypoglycemia Guaifenesin (Mucinex) 1,200 mg PO BID [facility] Last Admin: 11/02/19 08:52 Dose: 1,200 mg Documented by: Ceftriaxone Sodium (Rocephin) 1 gm in 50 mls @ 100 mls/hr IV Q24 [facility] Last Infusion: 11/02/19 10:35 Dose: Infused Documented by: Azithromycin 500 mg/ Dextrose 255 mls @ 250 mls/hr IV Q24 [facility] Last Admin: 11/02/19 10:41 Dose: 250 mls/hr Documented by: Dextrose (Dextrose 10%-Water) 250 mls @ 999 mls/hr IV .Q16M PRN; Protocol PRN Reason: HYPOGLYCEMIA Insulin Glargine (Lantus ([facility])) 42 units SC DAILY@1600 [facility] Last Admin: 11/01/19 16:45 Dose: 42 u Documented by: Insulin Human Lispro (Humalog Kwikpen ([facility])) 0 unit SC ACHS [facility]; Protocol Last Admin: 11/02/19 11:31 Dose: 14 units Documented by: Magnesium Hydroxide (Milk Of Magnesia) 30 ml PO DAILY PRN PRN PRN Reason: Constipation Metformin HCl (Glucophage) 1,000 mg PO BIDCM [facility] Last Admin: 11/02/19 08:51 Dose: 1,000 mg Documented by: Methylprednisolone (Solu-Medrol) 40 mg IV Q8 [facility] Last Admin: 11/02/19 05:26 Dose: 40 mg Documented by: Oxymetazoline HCl (Afrin ([facility])) 2 spray NS BID PRN PRN PRN Reason: CONGESTION Pantoprazole Sodium (Protonix) 20 mg PO DAILY [facility] Last Admin: 11/02/19 08:52 Dose: 20 mg Documented by: Potassium Chloride (K-Dur) 20 meq PO DAILY@0800 [facility] Last Admin: 11/02/19 08:51 Dose: 20 meq Documented by: Pramipexole Dihydrochloride (Mirapex) 0.5 mg PO QHS [facility] Last Admin: 11/01/19 21:07 Dose: 0.5 mg Documented by: Pravastatin Sodium (Pravachol) 20 mg PO QHS [facility] Last Admin: 11/01/19 21:07 Dose: 20 mg Documented by: Risperidone (Risperdal) 2 mg PO QHS [facility] Last Admin: 11/01/19 21:14 Dose: 2 mg Documented by: Sodium Chloride () 10 - 40 ml IV UD PRN PRN Reason: SALINE FLUSH Last Admin: 11/02/19 05:26 Dose: 10 ml Documented by: Venlafaxine HCl (Effexor Xr) 37.5 mg PO DAILY [facility] Last Admin: 11/02/19 08:52 Dose: 37.5 mg Documented by: Discharge Diet: 1800 Calorie Control Diet, Carb Control Diet Discharge Activity: Return to Normal Activity Call your doctor if you observe: Fever of 101 or Higher, Shortness of breath, Dizziness, Fainting spells, Chest pain Home Medications: Medications to take at Discharge Clozapine [Clozaril] 100 mg PO LUNCH 03/28/14 Risperidone [Risperdal] 2 mg PO QHS 03/28/14 glipiZIDE [Glucotrol] 5 mg PO BIDAC 03/28/14 metFORMIN HCl [Glucophage] 1,000 mg PO BID 03/28/14 Clozapine [Clozaril] 300 mg PO QHS 12/23/14 Insulin Glargine [Lantus SoloStar Pen] 42 units SC DAILY 12/23/14 Desvenlafaxine Succinate [Pristiq] 50 mg PO DAILY 07/25/15 Risperidone Microspheres [Risperdal Consta] 50 mg IM Q14D 07/25/15 Pravastatin Sodium 20 mg PO QHS 12/18/16 Clozapine [Clozaril] 200 mg PO DINNER 10/11/17 Potassium Chloride [K-Dur] 20 meq PO DAILY #30 tab 10/16/17 Cholecalciferol (Vitamin D3) [Vitamin D3] 1,000 unit PO DAILY 10/17/17 [place]-3 Fatty Acids/Fish Oil [Fish Oil 1,000 mg Capsule] 1 each PO DAILY 10/17/17 Albuterol IH (ProAir) [Proair Hfa] 2 puff INHALATION PRN PRN 07/22/18 Aspirin [Aspirin EC] 325 mg PO DAILY 07/22/18 Clonazepam [Klonopin] 0.5 mg PO BREAKFAST 07/22/18 Clonazepam [Klonopin] 0.5 mg PO QHS 07/22/18 Clonazepam [Klonopin] 1 mg PO 1200 07/22/18 Ferrous Gluconate 325 mg PO BIDCM 07/22/18 Fluticasone/Vilanterol [Breo Ellipta 100-25 Mcg INH] 1 puff IH DAILY 07/22/18 Furosemide [Lasix] 20 mg PO DAILY 07/22/18 Lubiprostone [Amitiza] 24 mcg PO BID 07/22/18 Acetaminophen [Mapap] 500 - 1,000 mg PO TID PRN PRN 10/31/19 Magnesium Hydroxide [Milk Of Magnesia] 30 ml PO DAILY PRN PRN 10/31/19 Omeprazole 20 mg PO DAILY 10/31/19 Oxymetazoline HCl [Nasal Relief] 2 spray NS PRN PRN 10/31/19 Pramipexole Di-HCl [Mirapex] 0.5 mg PO QHS 10/31/19 Umeclidinium [place] Inhaler [Incruse Ellipta Inhaler] 1 puff IH DAILY 10/31/19 Wheat Dextrin [Benefiber] 15 ml PO DAILY 10/31/19 Amox/Clavulanate Tablet [Augmentin Tablet] 875 mg PO Q12H #14 tab 11/02/19 Prednisone See Taper PO DAILY #30 tab 11/02/19 Following Prescrptions Were Given to Patient: Amox/Clavulanate Tablet [Augmentin Tablet] 875 mg PO Q12H #14 tab Transmission Status: Received by [facility] [id number] Prednisone See Taper PO DAILY #30 tab Transmission Status: Received by [facility] [address] Primary Care Physician: Boris Vance MD [Primary Care Provider] - Please follow up with your Primary Care Physician in: 3-5 Days Disposition: [facility] Minutes spent on discharge:: 35 Patient Condition:: Stable Medical Necessity - Tobacco Use Smoking Status: Former smoker Meaningful Use Info Meaningful Use Diagnoses (Choose all that apply): None applicable <[place] - Last Filed: 11/02/19 16:47> Discharge Date and Diagnosis - Secondary Discharge Diagnosis Chronic Problems FTT (failure to thrive) in adult (Chronic) COPD (chronic obstructive pulmonary disease) (Chronic) Hyperlipidemia (Chronic) Diabetes mellitus type 2 in obese (Chronic) HTN (hypertension) (Chronic) Schizophrenia (Chronic) Hospital Course and Treatment Summary of Care Provided: This patient was seen in conjunction with Zaira Whitmore NP. I have independently interviewed and examined the patient and reviewed pertinent historical, laboratory, and other data. Please refer to her note for patient's presentation, findings, and recommendations. 53-year-old female past medical history of schizophrenia, hypertension, type II DM, resident in a care home who presents with progressive SOB and cough and was managed severe sepsis secondary to community-acquired pneumonia. Chest X-ray showed left lower lobe pneumonia. She was initially managed on IV ceftriaxone and azithromycin and discharged on Augmentin for total of 7 days. She was also managed as acute COPD exacerbation and had respiratory panel was negative. She was discharged on prednisone taper. On the day of discharge, patient has no new complaints, denies any fever or chills. Physical Exam: Gen: Appears improved, ill-looking, not pale, not jaundiced, alert oriented x3 CVS:HS I +II, regular, no murmurs RESP: Diminished at lung bases GI: BS present and normal, nontender, no palpable organs EXT:No edema - Physical Exam Vitals/I&O's: Vital Signs Temp Pulse Resp BP Pulse Ox 97.8 F 100 16 134/78 H 100 11/02/19 09:02 11/02/19 13:14 11/02/19 13:14 11/02/19 09:02 11/02/19 11:55 Oxygen Flow Rate (L/min) [ 3 AMBULATION with Oxygen] Oxygen Flow Rate (L/min) 2 Oxygen Delivery Method Nasal Cannula Weight: 91.889 kg Body Mass Index (BMI) 38.2 Intake and Output for Last 24 Hours 10/31/19 11/01/19 11/02/19 23:59 23:59 23:59 Intake Total 3563.70 / 3563.70 3096.25 / 3096.25 1025 / 1025 Output Total 500 / 500 2900 / 2900 750 / 750 Balance 3063.70 / 3063.70 196.25 / 196.25 275 / 275 Microbiology Past 72 Hours 10/31/19 10:00 Blood Culture (Wb) - Anticubital Left Blood Culture - Preliminary No growth in 48 hours. 10/31/19 10:20 Blood Culture (Wb) - Right Wrist Blood Culture - Preliminary No growth in 48 hours. 10/31/19 10:40 Urine, Catheterized Urine Culture - Preliminary Culture exhibits no growth. 10/31/19 10:10 Mucosa - Nose Respiratory Panel (PCR) - Final 10/31/19 23:13 Urine, Clean Catch Streptococcus pneumoniae Antigen (M - Final 10/31/19 23:13 Urine, Random Legionella Antigen - Final 10/31/19 10:10 Mucosa - Nose Influenza Types A,B Direct FA (ISHAN) - Final Laboratory Results 11/01/19 20:26: POC Glucose 328 H 11/02/19 05:24: WBC 16.7 H, RBC 3.85 L, Hgb 11.1 L, Hct 35.6 L, MCV 92.5, MCH 28.8, MCHC 31.2 L, RDW Std Deviation 47.8 H, RDW Coeff of Tyesha 14.1, Plt Count 219, MPV 10.0 11/02/19 05:24: Sodium 137, Potassium 4.3, Chloride 103, Carbon Dioxide 28.0, Anion Gap 6, BUN 14, Creatinine 0.61, Estim Creat Clear Calc 78.63, Est GFR (MDRD) Af Amer 130, Est GFR (MDRD) Non-Af 107, BUN/Creatinine Ratio 22.8 H, Glucose 248 H, Calcium 9.0 11/02/19 06:37: POC Glucose 251 H 11/02/19 11:28: POC Glucose 380 H Code Visit Inpatient E&M: 16463 Disch Hosp
--- NOTE | 2019-11-02 11:38 | CASEMGMT ---
Addendum entered by Jannette Toth 11/02/19 11:46: JONNY notified RN of chicken picker time for patient. Jannette QUINN Original Note: [facility]. JONNY called patient's caregiver listed on her demographics sheet, Leola. She said she could chicken picker patient between 230 and 3p. JONNY also called patient's legal guardian, Melony and SW received her voice mail and her voice mailbox was full. JONNY will notify RN regarding chicken picker. Jannette QUINN
--- NOTE | 2019-11-02 11:42 | CASEMGMT ---
JAH CM NOTE: Per Zaira Whitmore NP, pt will need to discharge back to [facility] on oxygen and unsure of pt's current home O2 orders. Pt states she currently has Home O2 @ 3L/M through [facility]. Call placed to [facility] and spoke to [place]. She confirms pt does get Oxygen through them and current orders are for O2 @ 3 L/M [place] continuously. [place] also states pt is scheduled to get set up with CPAP w/O2 bleed-in on 11/04. Zaira made aware of above. Anil PRIETON RN CM.
--- NOTE | 2019-11-02 12:42 | PHA.DC.MR ---
Pharmacy Service has performed discharge medication reconciliation for this patient. Of note; the patient resides in a fpc who manages medications for the patient. Legal guardian not in room at time of med review to discuss new medications. The patient's discharge medication list was reviewed for discrepancies and discrepancies were resolved. Home Medications Clozapine [Clozaril] 100 mg PO LUNCH 03/28/14 Risperidone [Risperdal] 2 mg PO QHS 03/28/14 glipiZIDE [Glucotrol] 5 mg PO BIDAC 03/28/14 metFORMIN HCl [Glucophage] 1,000 mg PO BID 03/28/14 Clozapine [Clozaril] 300 mg PO QHS 12/23/14 Insulin Glargine [Lantus SoloStar Pen] 42 units SC DAILY 12/23/14 Desvenlafaxine Succinate [Pristiq] 50 mg PO DAILY 07/25/15 Risperidone Microspheres [Risperdal Consta] 50 mg IM Q14D 07/25/15 Pravastatin Sodium 20 mg PO QHS 12/18/16 Clozapine [Clozaril] 200 mg PO DINNER 10/11/17 Potassium Chloride [K-Dur] 20 meq PO DAILY #30 tab 10/16/17 Cholecalciferol (Vitamin D3) [Vitamin D3] 1,000 unit PO DAILY 10/17/17 [place]-3 Fatty Acids/Fish Oil [Fish Oil 1,000 mg Capsule] 1 each PO DAILY 10/17/17 Albuterol IH (ProAir) [Proair Hfa] 2 puff INHALATION PRN PRN 07/22/18 Aspirin [Aspirin EC] 325 mg PO DAILY 07/22/18 Clonazepam [Klonopin] 0.5 mg PO BREAKFAST 07/22/18 Clonazepam [Klonopin] 0.5 mg PO QHS 07/22/18 Clonazepam [Klonopin] 1 mg PO 1200 07/22/18 Ferrous Gluconate 325 mg PO BIDCM 07/22/18 Fluticasone/Vilanterol [Breo Ellipta 100-25 Mcg INH] 1 puff IH DAILY 07/22/18 Furosemide [Lasix] 20 mg PO DAILY 07/22/18 Lubiprostone [Amitiza] 24 mcg PO BID 07/22/18 Acetaminophen [Mapap] 500 - 1,000 mg PO TID PRN PRN 10/31/19 Magnesium Hydroxide [Milk Of Magnesia] 30 ml PO DAILY PRN PRN 10/31/19 Omeprazole 20 mg PO DAILY 10/31/19 Oxymetazoline HCl [Nasal Relief] 2 spray NS PRN PRN 10/31/19 Pramipexole Di-HCl [Mirapex] 0.5 mg PO QHS 10/31/19 Umeclidinium [place] Inhaler [Incruse Ellipta Inhaler] 1 puff IH DAILY 10/31/19 Wheat Dextrin [Benefiber] 15 ml PO DAILY 10/31/19 Amox/Clavulanate Tablet [Augmentin Tablet] 875 mg PO Q12H #14 tab 11/02/19 Prednisone See Taper PO DAILY #30 tab 11/02/19
--- NOTE | 2019-11-02 13:28 | CASEMGMT ---
SW attempted to call patient's legal guardian 2 times (11:30a and 1:30p) to notify her of patient's discharge. Both times voice mailbox was full. Jannette FIELDS MSW
== END 2019-11-02 15:19 | disposition home or self-care (01) | DRG 871 ==
LOC: ED 13:10 → PCU 13:47
PROVIDERS: Nurse Practitioner Family; Admitting Provider Internal Medicine; Emergency Provider Physician Assistant Medical; PCP Family Medicine; Visit Provider Internal Medicine
DX: A41.9 Sepsis, unspecified organism (principal); J18.9 Pneumonia, unspecified organism; J44.0 Chronic obstructive pulmonary disease with (acute) lower respiratory infection; J96.11 Chronic respiratory failure with hypoxia; J44.1 Chronic obstructive pulmonary disease with (acute) exacerbation; R65.20 Severe sepsis without septic shock; Z99.81 Dependence on supplemental oxygen; E11.9 Type 2 diabetes mellitus without complications; E78.5 Hyperlipidemia, unspecified; I10 Essential (primary) hypertension; G47.33 Obstructive sleep apnea (adult) (pediatric); F25.9 Schizoaffective disorder, unspecified; F32.9 Major depressive disorder, single episode, unspecified; F41.9 Anxiety disorder, unspecified; E66.9 Obesity, unspecified; Z68.38 Body mass index [BMI] 38.0-38.9, adult; Z79.84 Long term (current) use of oral hypoglycemic drugs; Z87.891 Personal history of nicotine dependence
CPT/HCPCS: 36415; 71046; 80048; 80053; 81001; 82962; 83605; 85025; 85027; 85610; 85730; 87040; 87086; 87449; 87633; 87804; 93005; 94640; 99251; 99285; J7030; A4216; G0463

== ENCOUNTER 2019-11-06 15:16 | Inpatient (IN) | payer MEDICARE, MEDICAID, SELFPAY ==
[2019-10-31 14:45] VITALS: BMI 38.2
[2019-11-06] VITALS (12 sets, daily range): BP systolic 118–165; BP diastolic 54–75; PULSE 120–132; RESP 12–28; TEMP 36.7–37.2; O2SAT 92–98; BMI 38.1; BMI 37.3
--- NOTE | 2019-11-06 15:34 | RAD_ITS ---
STUDY: X-RAY CHEST REASON FOR EXAM: Female, 53 years old. SOB, WHEEZING,COUHG. RELEASED FROM [facility] RECENTLY DX PNEUMONIA. ON AMOXICILLIN. -- [ End ] TECHNIQUE: AP COMPARISON: 11/01/2019 FINDINGS: EKG leads project over the chest. Lungs are less expanded as compared to the prior study. Patchy pulmonary infiltrates seen on the prior study have decreased. Minimal residual opacity in the lateral left midlung. There is no demonstrated pleural abnormality. Normal size heart. Normal mediastinum and reshma. Normal visualized pulmonary arteries. Normal visualized aortic arch and descending thoracic aorta. No acute bony process. There is no demonstrated abnormality of the visualized soft tissue structures of the upper abdomen. RAD/Chest 1 View (Portable) IMPRESSION: Near complete clearing of bilateral pulmonary infiltrates evident on the prior study. Electronically Signed: Kash Chua MD ([place]) at 16:31 EST , Service support ,
--- NOTE | 2019-11-06 15:34 | EKG12_ITS ---
Test Reason : SOB Blood Pressure : / mmHG Vent. Rate : 125 BPM Atrial Rate : 125 BPM P-R Int : 138 ms QRS Dur : 062 ms QT Int : 286 ms P-R-T Axes : 054 016 058 degrees QTc Int : 412 ms Sinus tachycardia Low voltage QRS Borderline ECG Confirmed by BOBBI SANDERS, JACOB ([id number]), editor map JUANA GOODMAN ([id number]) on 11/08/2019 12:26:58 PM Referred By: LIZ Confirmed By:JACOB MARTINES MD
--- NOTE | 2019-11-06 15:38 | ED.DCSUM_ITS ---
History of Present Illness Chief Complaint: Shortness of Breath Informant: Patient Onset: Yesterday Maximum Severity: Mild Narrative: Patient has history of COPD living in a residential indicates that she was in a harsh argument with staff members at residential that triggered a COPD attack and she has been coughing having wheezing since that argument occurred yesterday symptoms persisted into this morning and she came in for evaluation. She has had no fever dry nonproductive cough no chest pain no abdominal pain eating drinking well bowel bladder habits normal generally her COPD is well controlled, she denies TN PE or DVT Past Medical History - Allergies and Home Meds Allergies/Adverse Reactions: Allergies No Known Allergies Allergy (Verified 11/06/19 15:26) Primary Care Physician: Boris Vance MD [Primary Care Provider] - Past Medical History: - - COPD Surgical History: cholecystectomy, - - Jaw surgery Smoking Status: Former smoker - Family History Paternal Family History: Reports: COPD, - - from a farm accident Maternal Family History: Reports: - - Denies known maternal medical history including cardiac history. Review of Systems General: Denies: Chills, Fever, Sweats Eyes: Denies: Visual changes - bilaterally, Diplopia ENT: Denies: Rhinorrhea, Sore throat Cardiovascular: Denies: Chest pain, Palpitations Respiratory: Reports: Dyspnea, Cough. Denies: Dyspnea on exertion Gastrointestinal: Denies: Abdominal pain, Nausea, Vomiting, Diarrhea, Melena, Hematochezia Genitourinary: Denies: Dysuria, Hematuria, Frequency Musculoskeletal: Denies: Back pain, Extremity Pain Skin: Denies: Rash, Wounds Neurological: Denies: Headache, Weakness, Numbness Physical Exam Vital Signs/Narrative: Vital Signs Temp Pulse Resp BP Pulse Ox 11/06/19 15:17 98.0 F 125 H 20 H 118/75 92 General: Well nourished, Well developed, No Acute Distress Head: Normocephalic, Atraumatic Eyes: Perrl, EOMI ENT: Moist mucous membranes, No rhinorrhea Neck: Supple, Nontender Cardiovascular: Regular rate, Regular rhythm, No murmurs Respiratory: No distress, Chest nontender, Wheezing Abdomen: Soft, Nontender, Nondistended, Normal bowel sounds Back: Nontender, Normal Inspection Extremities: Nontender, No edema Skin: Normal color, No rash Neurological: Alert, Oriented x3, Cranial nerves II-XII grossly intact, Normal Strength, Normal Sensation Psychological: Normal affect, Normal Mood Diagnostic/Tx/Re-eval - Medical Decision Making She has a dry persistent cough. She has scattered wheezing her pulse ox is within normal range heart rates 120 sinus cup this time screening labs therapy Was admitted recently for pneumonia the chest x-ray today shows improvement in those lung long, EKG shows a sinus rhythm rate of about 125 no acute injury pattern, the screening labs are all generally unremarkable except her troponin is 0.15, she has been treated with aerosols IV fluids Hycodan does help suppress her cough she persists complaining of shortness of breath and remains tachycardic she indicates she is due to wear her CPAP mask, given all the above I spoke with the hospitalist about is here for admission and further management there is no signs of respiratory failure she is awake and alert her main issue was this harsh cough and she will need evaluated for that as well as the abnormal troponin Admit stable Dyspnea exacerbation of COPD, recent pneumonia abnormal troponin ED Disposition - Plan for ED Patient: Diagnosis: COPD (chronic obstructive pulmonary disease) Referrals: Boris Vance MD [Primary Care Provider] -
[2019-11-06] MEDS: Ipratropium/Albuterol Sulfate 3 ML AMPUL.NEB INHALATION ×2 (15:45→16:44)
[2019-11-06] MEDS: LORazepam 1 MG Tablet PO (15:46)
[2019-11-06 16:22] LABS: Absolute Lymphocyte Count 1.89 X10^3/uL (0.83-4.51); Absolute Neutrophil Count 13.3 X10^3/uL (2.0-7.7); Basophil# 0.03 X10^3/uL; Basophil% 0.2 % (0-1); Eosinophil# 0.01 X10^3/uL; Eosinophils% 0.1 % (0-5); Hematocrit 39.8 % (37-47); Hemoglobin 12.8 g/dL (12.0-15.0); Lymphocyte # 1.89 X10^3/ul (4.0); Lymphocyte % 11.6 % (19-41); Mean Corp Hgb Conc 32.2 g/dL (32-36); Mean Corpuscular Hgb 28.9 pg (27.0-32.0); Mean Corpuscular Volume 89.8 fL (81-99); Monocyte# 0.69 X10^3/uL; Monocyte% 4.2 % (0-10); NRBC Flagged by Analyzer 0 % (0-5); Neutrophil # 13.28 X10^3/uL (2.7-7.7); Neutrophil % 81.4 % (47-70); Platelet Count 231 K/mm3 (150-450); RBC Distribution Width CV 13.7 % (11.6-14.6); RBC Distribution Width SD 44.6 fl (35.1-43.9); Red Blood Count 4.43 M/mm3 (4.2-5.4); White Blood Count 16.3 K/mm3 (4.4-11.0)
[2019-11-06] MEDS: 0.9% Normal Saline 1,000 ML 150 ML IV (16:26)
[2019-11-06 17:16] LABS: Anion Gap 8 (5-15); BUN 12 mg/dL (7-18); Calcium,Total 9.4 mg/dL (8.5-10.1); Chloride 99 mmol/L (98-107); EST Glomerular Filtration Rate 91 mL/min (>60); Est Glom Filt Rate - Afr Amer 111 mL/min (>60); Estimated Creatinine Clearance 68.52 ml/min; Glucose 180 mg/dL (74-106); Potassium 3.9 mmol/L (3.5-5.1); Sodium Level 132 mmol/L (136-145)
[2019-11-06 18:36] LABS: BNP,B-Type NATRIURETIC PEPTIDE 2.5 pg/mL (0-100)
--- NOTE | 2019-11-06 19:35 | CPS ---
Pt states wearing CPAP at home HS but requesting to wear now d/t SOB. Pt unaware of settings. CPAP 9 started for now and pt stated pressure felt good.
--- NOTE | 2019-11-06 19:44 | ED.RN ---
Dentures in styrofoam cup placed into ziplock back and placed into her purse. Watch placed into her purse as well. Glasses were on her bed. PT aware.
--- NOTE | 2019-11-06 20:38 | PCM.HP.STD ---
Problem List (1) COPD exacerbation Status: Acute (2) Elevated troponin Status: Acute (3) Anxiety attack Status: Acute (4) COPD (chronic obstructive pulmonary disease) Status: Chronic (5) Hyperlipidemia Status: Chronic (6) Diabetes mellitus type 2 in obese Status: Chronic (7) HTN (hypertension) Status: Chronic (8) Schizophrenia Status: Chronic History of Present Illness Date of Admission: 11/06/19 Chief Complaint: sob The patient is a 53 year old F with a significant history schizophrenia; obstructive sleep apnea; COPD and diabetes mellitus who was [facility] because of shortness of breath developed after an argument. Associated with her symptoms is nonproductive cough and wheezing. Patient was recently admitted on 10/31/2019 and discharged on 11/02/2023 with severe sepsis secondary to community-acquired pneumonia and COPD. She was discharged home on Augmentin and prednisone taper. Past Medical History Past Medical History (Chronic Problems): Chronic Problems COPD (chronic obstructive pulmonary disease) (Chronic) Hyperlipidemia (Chronic) Diabetes mellitus type 2 in obese (Chronic) HTN (hypertension) (Chronic) Schizophrenia (Chronic) Allergies No Known Allergies Allergy (Verified 11/06/19 15:26) Home Medications: Ambulatory Orders Medication Instructions Recorded Clozapine [Clozaril] 100 mg PO LUNCH 03/28/14 Risperidone [Risperdal] 2 mg PO QHS 03/28/14 glipiZIDE [Glucotrol] 5 mg PO BIDAC 03/28/14 metFORMIN HCl [Glucophage] 1,000 mg PO BID 03/28/14 Clozapine [Clozaril] 300 mg PO QHS 12/23/14 Insulin Glargine [Lantus SoloStar 42 units SC DAILY 12/23/14 Pen] Desvenlafaxine Succinate [Pristiq] 50 mg PO DAILY 07/25/15 Risperidone Microspheres 50 mg IM Q14D 07/25/15 [Risperdal Consta] Pravastatin Sodium 20 mg PO QHS 12/18/16 Clozapine [Clozaril] 200 mg PO DINNER 10/11/17 Potassium Chloride [K-Dur] 20 meq PO DAILY #30 tab 10/16/17 Cholecalciferol (Vitamin D3) 1,000 unit PO DAILY 10/17/17 [Vitamin D3] [place]-3 Fatty Acids/Fish Oil [Fish 1 each PO DAILY 10/17/17 Oil 1,000 mg Capsule] Albuterol IH (ProAir) [Proair Hfa] 2 puff INHALATION PRN PRN 07/22/18 Aspirin [Aspirin EC] 325 mg PO DAILY 07/22/18 Clonazepam [Klonopin] 0.5 mg PO BREAKFAST 07/22/18 Clonazepam [Klonopin] 0.5 mg PO QHS 07/22/18 Clonazepam [Klonopin] 1 mg PO 1200 07/22/18 Ferrous Gluconate 325 mg PO BIDCM 07/22/18 Fluticasone/Vilanterol [Breo 1 puff IH DAILY 07/22/18 Ellipta 100-25 Mcg INH] Furosemide [Lasix] 20 mg PO DAILY 07/22/18 Lubiprostone [Amitiza] 24 mcg PO BID 07/22/18 Acetaminophen [Mapap] 500 - 1,000 mg PO TID PRN PRN 10/31/19 Magnesium Hydroxide [Milk Of 30 ml PO DAILY PRN PRN 10/31/19 Magnesia] Omeprazole 20 mg PO DAILY 10/31/19 Oxymetazoline HCl [Nasal Relief] 2 spray NS PRN PRN 10/31/19 Pramipexole Di-HCl [Mirapex] 0.5 mg PO QHS 10/31/19 Umeclidinium Finley Inhaler 1 puff IH DAILY 10/31/19 [Incruse Ellipta Inhaler] Wheat Dextrin [Benefiber] 15 ml PO DAILY 10/31/19 Amox/Clavulanate Tablet [Augmentin 875 mg PO Q12H #14 tab 11/02/19 Tablet] Prednisone See Taper PO DAILY #30 tab 11/02/19 Surgical History: cholecystectomy, - - Jaw surgery Psychiatric History: Anxiety, Depression, Schizophrenia BREAST PULLER History: No pertinent BREAST PULLER history Lives: Care Home Smoking Status: Former smoker - *Family History Paternal History Items: Cancer, COPD, - - from a farm accident Maternal History Items: Heart Disease, - Review of Systems Constitutional: Denies: Chills, Fever, Weight Change HEENT: Denies: Head Aches, Sinus Congestion, Sinus Drainage Cardiovascular: Denies: Chest Pain, Palpitations Respiratory: Reports: Cough, Shortness of Breath, Wheezing. Denies: Sputum production Gastrointestinal: Denies: Abdominal Pain, Nausea, Vomiting Genitourinary: Denies: Dysuria Musculoskeletal: Denies: Joint Pain, Joint Tenderness Skin: Denies: Rash, Wounds Neurological: Denies: Numbness, Tingling, Focal weakness Psychiatric: Denies: Anxiety, Depression, Homicidal Ideations, Suicidal Ideations Hematologic/ Lymphatic: Denies: Easy Bruising, Easy Bleeding VTE Information - Inpt Only VTE Present on Admission: No VTE Mechan Device Prophylaxis: None VTE Pharm Prophylaxis ordered?: Yes Patient Problems: Active and Suspected Problems COPD exacerbation (Acute) Elevated troponin (Acute) Anxiety attack (Acute) - Physical Exam Vitals/I&O's: Vital Signs Temp Pulse Resp BP Pulse Ox 99.0 F 127 H 20 H 134/65 H 95 11/06/19 20:09 11/06/19 20:09 11/06/19 20:09 11/06/19 20:09 11/06/19 20:09 Oxygen Flow Rate (L/min) 3 Oxygen Delivery Method Nasal Cannula Weight: 89.6 kg Body Mass Index (BMI) 37.3 General: Alert, Oriented x3, Cooperative HEENT: Atraumatic, PERRLA, EOMI, Normocephalic Neck: Supple, No JVD, Negative Carotid Bruits Lungs: No rales, Short of Breath, Tachypneic, Wheezes Cardiovascular: Normal S1, Normal S2, No murmurs, Tachycardic Abdomen: Bowel Sounds Present, Soft, Non Tender Extremities: No edema, Capillary Refill Less than 3 Seconds Skin: No rashes, No breakdown Musculoskeletal: No Tenderness to Palpation of Joints or Extremities Neurological: Cranial nerves II-XII grossly intact Psych/Mental Status: Flat Affect Laboratory Results 11/06/19 16:13: WBC 16.3 H, RBC 4.43, Hgb 12.8, Hct 39.8, MCV 89.8, MCH 28.9, MCHC 32.2, RDW Std Deviation 44.6 H, RDW Coeff of Tyesha 13.7, Plt Count 231, MPV 9.0, Immature Gran % (Auto) 2.500 H, Neut % (Auto) 81.4 H, Lymph % (Auto) 11.6 L, [place] % (Auto) 4.2, Eos % (Auto) 0.1, Baso % (Auto) 0.2, Absolute Neuts (auto) 13.3 H, Absolute Lymphs (auto) 1.89, Nucleated RBC % 0 11/06/19 16:13: Sodium 132 L, Potassium 3.9, Chloride 99, Carbon Dioxide 25.0, Anion Gap 8, BUN 12, Creatinine 0.70, Estim Creat Clear Calc 68.52, Est GFR (MDRD) Af Amer 111, Est GFR (MDRD) Non-Af 91, BUN/Creatinine Ratio 17.0, Glucose 180 H, Calcium 9.4, Troponin I < 0.150 H 11/06/19 16:13: B-Natriuretic Peptide 2.5 Current Medications Sodium Chloride () 1,000 mls @ 150 mls/hr IV .[id number] ONE Stop: 11/06/19 22:13 Last Admin: 11/06/19 16:26 Dose: 150 mls/hr Documented by: Assessment/Plan All Active Problems COPD exacerbation (Acute) Elevated troponin (Acute) Anxiety attack (Acute) The patient is a 53 year old F with a significant history schizophrenia; obstructive sleep apnea; COPD and diabetes mellitus who was brought [facility] because of shortness of breath developed after an argument; nonproductive cough and wheezing consistent with probable anxiety attack; COPD and probably not completely resolved sepsis from recent admission. COPD exacerbation CXR: Near complete clearing of bilateral pulmonary infiltrates evident on prior study. Chest x-ray was independently reviewed and agree radiologist interpretation. EKG independently reviewed confirms tachycardia Scheduled DuoNeb Albuterol as needed Was on prednisone taper at [facility]. Will start patient on prednisone 40 mg daily. Continue Augmentin prescribed on recent discharge. Oxygen as needed. BiPAP at night. Influenza screen and respiratory pathogen panel 10/31/2019 was unremarkable. Mucinex ordered. Tessalon perles ordered Monitor BMP and CBC Anxiety attack Received Ativan at the emergency department. Relaxation techniques Continue home clonazepam. Elevated troponin EKG shows sinus tach. Trend troponin. Continue home aspirin 325 mg daily. Sepsis Patient with tachycardia and tachypnea. Heart rate is in the 120s and respiratory rate is in the middle 20s. Also with low-grade fever of 100.1 Urinalysis and urine culture ordered. Blood culture ordered. Lactic acid ordered. Of note patient was recently treated for sepsis secondary to pneumonia. Assume source is pneumonia. Will continue on p.o. Augmentin. Diabetes mellitus with hyperglycemia Patient with hyperglycemia Hold metformin. Continue glipizide Accu-check with correction scale insulin. De-escalate acting insulin from the [facility] to slightly lesser dose. Schizophrenia Risperidone continued Clozapine continue Obstructive sleep apnea Patient on CPAP however she could not tolerate CPAP at a hospital so she was treated BiPAP. Hypertension On presentation her blood pressure was not within goal Lasix continued. Trend blood pressure and adjust blood pressure medication as necessary. Irritable bowel syndrome Amitiza continued DVT Prophylaxis Subcutaneous Lovenox. Code Visit Inpatient E&M: 37153 Init Hosp L3
[2019-11-06] MEDS: guaiFENesin 1,200 MG Tablet 1200 MG PO (22:30)
[2019-11-06] MEDS: clonazePAM 0.5 MG Tablet PO (22:30)
[2019-11-06] MEDS: Amox/Clavulanate 875 MG Tablet PO (22:30)
[2019-11-06] MEDS: Lubiprostone 24 MCG Capsule PO (22:30)
[2019-11-06] MEDS: predniSONE 20 MG Tablet 40 MG PO (22:30)
[2019-11-06] MEDS: Pramipexole Di-HCl 0.5 MG Tablet PO (22:30)
[2019-11-06] MEDS: RisperiDONE 2 MG Tablet PO (22:30)
[2019-11-06] MEDS: Pravastatin 20 MG Tablet PO (22:30)
[2019-11-06] MEDS: Insulin Lispro 100 UNIT/ML INSULN.PEN SC (22:31)
[2019-11-06 22:50] LABS: Bedside Glucose 254 mg/dL (70-110)
[2019-11-07] VITALS (20 sets, daily range): BP systolic 124–156; BP diastolic 48–94; PULSE 100–128; RESP 12–32; TEMP 36.4–37.8; O2SAT 92–96
[2019-11-07] MEDS: Benzonatate 100 MG Capsule PO ×3 (00:44→21:29)
[2019-11-07] MEDS: 0.9% Saline Lock 10 ML Syringe IV ×3 (00:45→21:33)
[2019-11-07] MEDS: Acetaminophen 325 MG Tablet 650 MG PO ×3 (00:47→21:31)
[2019-11-07] MEDS: Ipratropium/Albuterol Sulfate 3 ML AMPUL.NEB INHALATION ×5 (00:55→19:00)
[2019-11-07 01:05] LABS: Lactic Acid 1.1 mmol/L (0.4-1.9)
[2019-11-07 04:12] LABS: Absolute Lymphocyte Count 0.77 X10^3/uL (0.83-4.51); Absolute Neutrophil Count 13.6 X10^3/uL (2.0-7.7); Basophil# 0.03 X10^3/uL; Basophil% 0.2 % (0-1); Lymphocyte # 0.77 X10^3/ul (4.0); Lymphocyte % 4.9 % (19-41); Mean Corp Hgb Conc 32.4 g/dL (32-36); Mean Corpuscular Hgb 29.6 pg (27.0-32.0); Mean Corpuscular Volume 91.1 fL (81-99); Mean Platelet Vol. 9.5 fl (6.2-12.0); Monocyte# 0.71 X10^3/uL; Monocyte% 4.5 % (0-10); NRBC Flagged by Analyzer 0 % (0-5); Neutrophil # 13.57 X10^3/uL (2.7-7.7); Neutrophil % 86.7 % (47-70); Platelet Count 223 K/mm3 (150-450); RBC Distribution Width CV 13.7 % (11.6-14.6); RBC Distribution Width SD 45.6 fl (35.1-43.9); Red Blood Count 4.06 M/mm3 (4.2-5.4); White Blood Count 15.7 K/mm3 (4.4-11.0)
[2019-11-07 04:38] LABS: Anion Gap 6 (5-15); BUN 8 mg/dL (7-18); BUN/Creat Ratio 11.8 RATIO (10-20); Calcium,Total 8.8 mg/dL (8.5-10.1); Chloride 96 mmol/L (98-107); Creatinine, Serum 0.68 mg/dL (0.55-1.02); EST Glomerular Filtration Rate 95 mL/min (>60); Est Glom Filt Rate - Afr Amer 115 mL/min (>60); Estimated Creatinine Clearance 70.54 ml/min; Glucose 344 mg/dL (74-106); Potassium 4.7 mmol/L (3.5-5.1); Sodium Level 128 mmol/L (136-145)
[2019-11-07] MEDS: Insulin Lispro 100 UNIT/ML INSULN.PEN SC ×4 (06:56→21:30)
[2019-11-07] MEDS: glipiZIDE 5 MG Tablet PO ×2 (06:57→16:38)
[2019-11-07 07:06] LABS: Bedside Glucose 296 mg/dL (70-110)
[2019-11-07] MEDS: clonazePAM 0.5 MG Tablet PO ×2 (08:02→21:29)
[2019-11-07] MEDS: predniSONE 20 MG Tablet 40 MG PO (08:02)
[2019-11-07] MEDS: Pantoprazole Sodium 20 MG Tablet PO (09:48)
[2019-11-07] MEDS: Aspirin E.C. 325 MG Tablet PO (09:48)
[2019-11-07] MEDS: Amox/Clavulanate 875 MG Tablet PO ×2 (09:48→21:30)
[2019-11-07] MEDS: Venlafaxine XR 37.5 MG Capsule PO (09:48)
[2019-11-07] MEDS: Furosemide 20 MG Tablet PO (09:48)
[2019-11-07] MEDS: guaiFENesin 1,200 MG Tablet 1200 MG PO ×2 (09:49→21:30)
[2019-11-07] MEDS: Enoxaparin 40 MG/0.4 ML Syringe SC (09:51)
[2019-11-07 10:11] LABS: Bacteria 0 SEEN /hpf (None Seen); Mucous, Urine 0 SEEN /hpf (<or=2+); Red Blood Cells-Urine 0 SEEN /hpf (0-5); White Blood Cells 0 SEEN /hpf (0-5)
[2019-11-07 10:14] LABS: Color, Urine Yellow (Yellow); Glucose, Dipstick 1000 mg/dl (Normal); Ketone-Dipstick Negative (Negative); Leukocyte Esterase-Dipstick Negative /ul (Negative); Nitrite-Dipstick Negative (Negative); Occult Blood-Urine Negative /ul (Negative); Protein-Dipstick 15 mg/dl (Negative); Urine Bilirubin Dipstick Negative (Negative); Urine Clarity Clear (Clear); Urine Urobilinogen Normal (Normal); Urine pH 6.5 (5.0 - 8.0)
[2019-11-07 10:50] LABS: Squamous Epithelial Cells - UA 0-5 SEEN /hpf (5-10)
[2019-11-07] MEDS: Ferrous Gluconate 324 MG Tablet PO ×2 (11:38→18:36)
[2019-11-07] MEDS: clonazePAM 1 MG Tablet PO (11:39)
[2019-11-07 12:01] LABS: Bedside Glucose 240 mg/dL (70-110)
--- NOTE | 2019-11-07 12:52 | PCM.PN.HOSP ---
<Hemanth Carrizales - Last Filed: 11/07/19 12:52> Patient Problems: Active and Suspected Problems COPD exacerbation (Acute) Elevated troponin (Acute) Anxiety attack (Acute) Reason for Visit: SOB Subjective: Pt with ongoing SOB, wheezing, nonproductive cough. She states other longterm members are ill with respiratory issues. No CP, LH/dizziness. No LE edema. She chronically uses 3lpm o2. currently comfortably on 3.5. Vitals/I&O's: Vital Signs Temp Pulse Resp BP Pulse Ox 97.6 F L 116 H 18 156/86 H 96 11/07/19 11:00 11/07/19 11:01 11/07/19 11:01 11/07/19 11:00 11/07/19 11:01 Oxygen Flow Rate (L/min) 3.5 Oxygen Delivery Method Nasal Cannula Weight: 197 lb 8.547 oz Body Mass Index (BMI) 37.3 Intake and Output for Last 24 Hours 11/05/19 11/06/19 11/07/19 23:59 23:59 23:59 Intake Total 867.5 / 1017.5 490 / 490 Output Total 200 / 200 Balance 867.5 / 1017.5 290 / 290 General: Alert, Oriented x3, Cooperative HEENT: Atraumatic, PERRLA, EOMI, Normocephalic Neck: Supple, No JVD, Negative Carotid Bruits Lungs: Diminished, Wheezes Cardiovascular: Regular rate, No murmurs Abdomen: Bowel Sounds Present, Soft, Non Tender, Obese Extremities: No edema, Capillary Refill Less than 3 Seconds Skin: No rashes, No breakdown Musculoskeletal: No Tenderness to Palpation of Joints or Extremities Neurological: Cranial nerves II-XII grossly intact Psych/Mental Status: Appropriate, Flat Affect, Alert and oriented to time, place, person, mood and affect Laboratory Results 11/06/19 16:13: WBC 16.3 H, RBC 4.43, Hgb 12.8, Hct 39.8, MCV 89.8, MCH 28.9, MCHC 32.2, RDW Std Deviation 44.6 H, RDW Coeff of Tyesha 13.7, Plt Count 231, MPV 9.0, Immature Gran % (Auto) 2.500 H, Neut % (Auto) 81.4 H, Lymph % (Auto) 11.6 L, [place] % (Auto) 4.2, Eos % (Auto) 0.1, Baso % (Auto) 0.2, Absolute Neuts (auto) 13.3 H, Absolute Lymphs (auto) 1.89, Nucleated RBC % 0 11/06/19 16:13: Sodium 132 L, Potassium 3.9, Chloride 99, Carbon Dioxide 25.0, Anion Gap 8, BUN 12, Creatinine 0.70, Estim Creat Clear Calc 68.52, Est GFR (MDRD) Af Amer 111, Est GFR (MDRD) Non-Af 91, BUN/Creatinine Ratio 17.0, Glucose 180 H, Calcium 9.4, Troponin I < 0.150 H 11/06/19 16:13: B-Natriuretic Peptide 2.5 11/06/19 21:47: Troponin I < 0.150 H 11/06/19 22:11: POC Glucose 254 H 11/07/19 00:35: Troponin I < 0.015 11/07/19 00:35: Lactic Acid 1.1 11/07/19 03:40: WBC 15.7 H, RBC 4.06 L, Hgb 12.0, Hct 37.0, MCV 91.1, MCH 29.6, MCHC 32.4, RDW Std Deviation 45.6 H, RDW Coeff of Tyesha 13.7, Plt Count 223, MPV 9.5, Immature Gran % (Auto) 3.700 H, Neut % (Auto) 86.7 H, Lymph % (Auto) 4.9 L, [place] % (Auto) 4.5, Eos % (Auto) 0.0, Baso % (Auto) 0.2, Absolute Neuts (auto) 13.6 H, Absolute Lymphs (auto) 0.77 L, Nucleated RBC % 0 11/07/19 03:40: Sodium 128 L, Potassium 4.7, Chloride 96 L, Carbon Dioxide 26.0, Anion Gap 6, BUN 8, Creatinine 0.68, Estim Creat Clear Calc 70.54, Est GFR (MDRD) Af Amer 115, Est GFR (MDRD) Non-Af 95, BUN/Creatinine Ratio 11.8, Glucose 344 H, Calcium 8.8 11/07/19 03:40: Troponin I < 0.015 11/07/19 06:50: POC Glucose 296 H 11/07/19 10:00: Urine Color Yellow, Urine Clarity Clear, Urine pH 6.5, Ur Specific [place] 1.010, Urine Protein 15 H, Urine Glucose (UA) 1000 H, Urine Ketones Negative, Urine Occult Blood Negative, Urine Nitrite Negative, Urine Bilirubin Negative, Urine Urobilinogen Normal, Ur Leukocyte Esterase Negative, Urine RBC 0 SEEN, Urine WBC 0 SEEN, Ur Squamous Epith Cells 0-5 SEEN, Urine Bacteria 0 SEEN, Urine Mucus 0 SEEN 11/07/19 11:25: POC Glucose 240 H Current Medications Acetaminophen (Tylenol) 650 mg PO Q6H PRN PRN PRN Reason: Pain Score 1-3/Temp > 100.7 F Last Admin: 11/07/19 11:38 Dose: 650 mg Documented by: Albuterol Sulfate (Ventolin Aerosols) 2.5 mg INHALATION Q2H PRN PRN PRN Reason: SHORTNESS OF BREATH Albuterol/Ipratropium (Duoneb) 3 ml INHALATION Q4HWA.RT [facility] Last Admin: 11/07/19 11:01 Dose: 3 ml Documented by: Amoxicillin/Clavulanate Potassium (Augmentin Tablet) 875 mg PO Q12 [facility] Last Admin: 11/07/19 09:48 Dose: 875 mg Documented by: Aspirin (Ecotrin) 325 mg PO DAILY [facility] Last Admin: 11/07/19 09:48 Dose: 325 mg Documented by: Atorvastatin Calcium (Lipitor) 40 mg PO QHS [facility] Last Admin: 11/07/19 02:03 Dose: Not Given Documented by: Benzonatate (Tessalon Perle) 100 mg PO Q8H PRN PRN PRN Reason: COUGH Last Admin: 11/07/19 11:45 Dose: 100 mg Documented by: Clonazepam (Klonopin) 0.5 mg PO BREAKFAST [facility] Last Admin: 11/07/19 08:02 Dose: 0.5 mg Documented by: Clonazepam (Klonopin) 1 mg PO 1200 [facility] Last Admin: 11/07/19 11:39 Dose: 1 mg Documented by: Clonazepam (Klonopin) 0.5 mg PO QHS [facility] Last Admin: 11/06/19 22:30 Dose: 0.5 mg Documented by: Clozapine (Clozaril) 100 mg PO LUNCH [facility] Last Admin: 11/07/19 11:38 Dose: 100 mg Documented by: Clozapine (Clozaril) 200 mg PO DINNER [facility] Clozapine (Clozaril) 300 mg PO QHS [facility] Last Admin: 11/06/19 22:30 Dose: 300 mg Documented by: Dextrose (D50w Syringe) 0 gm IV X1 PRN; Protocol PRN Reason: Hypoglycemia Enoxaparin Sodium (Lovenox) 40 mg SC DAILY [facility] Last Admin: 11/07/19 09:51 Dose: 40 mg Documented by: Ferrous Gluconate (Ferrous Gluconate) 324 mg PO 1200,1700 [facility] Last Admin: 11/07/19 11:38 Dose: 324 mg Documented by: Furosemide (Lasix) 20 mg PO DAILY [facility] Last Admin: 11/07/19 09:48 Dose: 20 mg Documented by: Glipizide (Glucotrol) 5 mg PO BIDAC [facility] Last Admin: 11/07/19 06:57 Dose: 5 mg Documented by: Glucagon () 1 mg IM .X1 PRN PRN Reason: Hypoglycemia Guaifenesin (Mucinex) 1,200 mg PO BID [facility] Last Admin: 11/07/19 09:49 Dose: 1,200 mg Documented by: Sodium Chloride () 250 mls @ 15 mls/hr IV .[id number] PRN PRN Reason: Saline Flush Insulin Glargine (Lantus ([facility])) 42 units SC 1100 [facility] Last Admin: 11/07/19 11:31 Dose: 42 u Documented by: Insulin Human Lispro (Humalog Kwikpen ([facility])) 0 unit SC ACHS [facility]; Protocol Last Admin: 11/07/19 11:26 Dose: 4 unit Documented by: Labetalol HCl (Trandate) 10 mg IV Q4H PRN PRN PRN Reason: SBP > 160 Lubiprostone (Amitiza) 24 mcg PO BID [facility] Last Admin: 11/06/19 22:30 Dose: 24 mcg Documented by: Magnesium Hydroxide (Milk Of Magnesia) 30 ml PO DAILY PRN PRN PRN Reason: Constipation Methylprednisolone (Solu-Medrol) 40 mg IV Q8 [facility] Ondansetron HCl (Zofran) 4 mg IV Q8H PRN PRN PRN Reason: NAUSEA/VOMITING Oxymetazoline HCl (Afrin ([facility])) 2 spray NS BID PRN PRN PRN Reason: CONGESTION Pantoprazole Sodium (Protonix) 20 mg PO DAILY [facility] Last Admin: 11/07/19 09:48 Dose: 20 mg Documented by: Potassium [facility] Last Admin: 11/07/19 08:02 Dose: 20 meq Documented by: Pramipexole Dihydrochloride (Mirapex) 0.5 mg PO QHS [facility] Last Admin: 11/06/19 22:30 Dose: 0.5 mg Documented by: Pravastatin Sodium (Pravachol) 20 mg PO QHS [facility] Last Admin: 11/06/19 22:30 Dose: 20 mg Documented by: Risperidone (Risperdal) 2 mg PO QHS [facility] Last Admin: 11/06/19 22:30 Dose: 2 mg Documented by: Senna/Docusate Sodium (Senokot-S, Celia-Colace) 2 tablet PO BID PRN PRN PRN Reason: Constipation Sodium Chloride () 10 - 40 ml IV UD PRN PRN Reason: SALINE FLUSH Last Admin: 11/07/19 00:45 Dose: 10 ml Documented by: Venlafaxine HCl (Effexor Xr) 37.5 mg PO DAILY [facility] Last Admin: 11/07/19 09:48 Dose: 37.5 mg Documented by: STROKE Vital Signs/Narrative: Vital Signs Temp Pulse Resp BP Pulse Ox 11/07/19 11:01 116 H 18 96 11/07/19 11:00 97.6 F L 115 H 20 H 156/86 H 96 11/07/19 09:00 97.9 F 114 H 24 H 137/82 H 96 Medical Necessity - Tobacco Use Smoking Status: Former smoker Assessment/Plan All Active Problems COPD exacerbation (Acute) Elevated troponin (Acute) Anxiety attack (Acute) 1. Acute COPD exacerbation, chronic hypoxic resp failure - aerosols, Solumedrol. wean o2. BNP negative. 2. Anxiety attack - resolved. continue klonopin 3. Elevated trop - stable. EKG neg for acute ischemic process. Stachy on monitor. 4. Acute sepsis 2/2 residual pna - continue augmentin. + fever/leukocytosis/tachycardia/tahcypnea, negative lactate. UA negative. Blood cx pending. 5. Dmt2 with obesity - continue glipizide, lantus, SSI. 6. Schizophrenia - continue home meds. flat affect. 7. LIDA - continue bipap qhs 8. IBS - amizita 9. HLD - statin DVT ppx: lovenox DC planning: return to longterm This patient was seen by Hemanth Carrizales PA-C under the supervision of Doctor Kathy. <Laron Chavez - Last Filed: 11/07/19 13:07> Vitals/I&O's: Vital Signs Temp Pulse Resp BP Pulse Ox 36.4 C L 116 H 18 156/86 H 96 11/07/19 11:00 11/07/19 11:01 11/07/19 11:01 11/07/19 11:00 11/07/19 11:01 Oxygen Flow Rate (L/min) 3.5 Oxygen Delivery Method Nasal Cannula Weight: 89.6 kg Body Mass Index (BMI) 37.3 Intake and Output for Last 24 Hours 11/05/19 11/06/19 11/07/19 23:59 23:59 23:59 Intake Total 867.5 / 1017.5 490 / 490 Output Total 200 / 200 Balance 867.5 / 1017.5 290 / 290 General: Alert, Cooperative HEENT: Atraumatic, Normocephalic Neck: No Nodes, Trachea Midline Lungs: Diminished, Wheezes Cardiovascular: Regular rate, Regular Rhythm, Normal S1, Normal S2, No murmurs Laboratory Results 11/06/19 16:13: WBC 16.3 H, RBC 4.43, Hgb 12.8, Hct 39.8, MCV 89.8, MCH 28.9, MCHC 32.2, RDW Std Deviation 44.6 H, RDW Coeff of Tyesha 13.7, Plt Count 231, MPV 9.0, Immature Gran % (Auto) 2.500 H, Neut % (Auto) 81.4 H, Lymph % (Auto) 11.6 L, [place] % (Auto) 4.2, Eos % (Auto) 0.1, Baso % (Auto) 0.2, Absolute Neuts (auto) 13.3 H, Absolute Lymphs (auto) 1.89, Nucleated RBC % 0 11/06/19 16:13: Sodium 132 L, Potassium 3.9, Chloride 99, Carbon Dioxide 25.0, Anion Gap 8, BUN 12, Creatinine 0.70, Estim Creat Clear Calc 68.52, Est GFR (MDRD) Af Amer 111, Est GFR (MDRD) Non-Af 91, BUN/Creatinine Ratio 17.0, Glucose 180 H, Calcium 9.4, Troponin I < 0.150 H 11/06/19 16:13: B-Natriuretic Peptide 2.5 11/06/19 21:47: Troponin I < 0.150 H 11/06/19 22:11: POC Glucose 254 H 11/07/19 00:35: Troponin I < 0.015 11/07/19 00:35: Lactic Acid 1.1 11/07/19 03:40: WBC 15.7 H, RBC 4.06 L, Hgb 12.0, Hct 37.0, MCV 91.1, MCH 29.6, MCHC 32.4, RDW Std Deviation 45.6 H, RDW Coeff of Tyesha 13.7, Plt Count 223, MPV 9.5, Immature Gran % (Auto) 3.700 H, Neut % (Auto) 86.7 H, Lymph % (Auto) 4.9 L, [place] % (Auto) 4.5, Eos % (Auto) 0.0, Baso % (Auto) 0.2, Absolute Neuts (auto) 13.6 H, Absolute Lymphs (auto) 0.77 L, Nucleated RBC % 0 11/07/19 03:40: Sodium 128 L, Potassium 4.7, Chloride 96 L, Carbon Dioxide 26.0, Anion Gap 6, BUN 8, Creatinine 0.68, Estim Creat Clear Calc 70.54, Est GFR (MDRD) Af Amer 115, Est GFR (MDRD) Non-Af 95, BUN/Creatinine Ratio 11.8, Glucose 344 H, Calcium 8.8 11/07/19 03:40: Troponin I < 0.015 11/07/19 06:50: POC Glucose 296 H 11/07/19 10:00: Urine Color Yellow, Urine Clarity Clear, Urine pH 6.5, Ur Specific [place] 1.010, Urine Protein 15 H, Urine Glucose (UA) 1000 H, Urine Ketones Negative, Urine Occult Blood Negative, Urine Nitrite Negative, Urine Bilirubin Negative, Urine Urobilinogen Normal, Ur Leukocyte Esterase Negative, Urine RBC 0 SEEN, Urine WBC 0 SEEN, Ur Squamous Epith Cells 0-5 SEEN, Urine Bacteria 0 SEEN, Urine Mucus 0 SEEN 11/07/19 11:25: POC Glucose 240 H Current Medications Acetaminophen (Tylenol) 650 mg PO Q6H PRN PRN PRN Reason: Pain Score 1-3/Temp > 100.7 F Last Admin: 11/07/19 11:38 Dose: 650 mg Documented by: Albuterol Sulfate (Ventolin Aerosols) 2.5 mg INHALATION Q2H PRN PRN PRN Reason: SHORTNESS OF BREATH Albuterol/Ipratropium (Duoneb) 3 ml INHALATION Q4HWA.RT [facility] Last Admin: 11/07/19 11:01 Dose: 3 ml Documented by: Amoxicillin/Clavulanate Potassium (Augmentin Tablet) 875 mg PO Q12 [facility] Last Admin: 11/07/19 09:48 Dose: 875 mg Documented by: Aspirin (Ecotrin) 325 mg PO DAILY [facility] Last Admin: 11/07/19 09:48 Dose: 325 mg Documented by: Atorvastatin Calcium (Lipitor) 40 mg PO QHS [facility] Last Admin: 11/07/19 02:03 Dose: Not Given Documented by: Benzonatate (Tessalon Perle) 100 mg PO Q8H PRN PRN PRN Reason: COUGH Last Admin: 11/07/19 11:45 Dose: 100 mg Documented by: Clonazepam (Klonopin) 0.5 mg PO BREAKFAST [facility] Last Admin: 11/07/19 08:02 Dose: 0.5 mg Documented by: Clonazepam (Klonopin) 1 mg PO 1200 [facility] Last Admin: 11/07/19 11:39 Dose: 1 mg Documented by: Clonazepam (Klonopin) 0.5 mg PO QHS [facility] Last Admin: 11/06/19 22:30 Dose: 0.5 mg Documented by: Clozapine (Clozaril) 100 mg PO LUNCH [facility] Last Admin: 11/07/19 11:38 Dose: 100 mg Documented by: Clozapine (Clozaril) 200 mg PO DINNER [facility] Clozapine (Clozaril) 300 mg PO QHS [facility] Last Admin: 11/06/19 22:30 Dose: 300 mg Documented by: Dextrose (D50w Syringe) 0 gm IV X1 PRN; Protocol PRN Reason: Hypoglycemia Enoxaparin Sodium (Lovenox) 40 mg SC DAILY [facility] Last Admin: 11/07/19 09:51 Dose: 40 mg Documented by: Ferrous Gluconate (Ferrous Gluconate) 324 mg PO 1200,1700 [facility] Last Admin: 11/07/19 11:38 Dose: 324 mg Documented by: Furosemide (Lasix) 20 mg PO DAILY [facility] Last Admin: 11/07/19 09:48 Dose: 20 mg Documented by: Glipizide (Glucotrol) 5 mg PO BIDAC [facility] Last Admin: 11/07/19 06:57 Dose: 5 mg Documented by: Glucagon () 1 mg IM .X1 PRN PRN Reason: Hypoglycemia Guaifenesin (Mucinex) 1,200 mg PO BID [facility] Last Admin: 11/07/19 09:49 Dose: 1,200 mg Documented by: Sodium Chloride () 250 mls @ 15 mls/hr IV .[id number] PRN PRN Reason: Saline Flush Insulin Glargine (Lantus ([facility])) 42 units SC 1100 [facility] Last Admin: 11/07/19 11:31 Dose: 42 u Documented by: Insulin Human Lispro (Humalog Kwikpen ([facility])) 0 unit SC ACHS [facility]; Protocol Last Admin: 11/07/19 11:26 Dose: 4 unit Documented by: Labetalol HCl (Trandate) 10 mg IV Q4H PRN PRN PRN Reason: SBP > 160 Lubiprostone (Amitiza) 24 mcg PO BID [facility] Last Admin: 11/07/19 12:53 Dose: 24 mcg Documented by: Magnesium Hydroxide (Milk Of Magnesia) 30 ml PO DAILY PRN PRN PRN Reason: Constipation Methylprednisolone (Solu-Medrol) 40 mg IV Q8 [facility] Ondansetron HCl (Zofran) 4 mg IV Q8H PRN PRN PRN Reason: NAUSEA/VOMITING Oxymetazoline HCl (Afrin ([facility])) 2 spray NS BID PRN PRN PRN Reason: CONGESTION Pantoprazole Sodium (Protonix) 20 mg PO DAILY [facility] Last Admin: 11/07/19 09:48 Dose: 20 mg Documented by: Potassium Chloride (K[facility]Dur) [facility] Last Admin: 11/07/19 08:02 Dose: 20 meq Documented by: Pramipexole Dihydrochloride (Mirapex) 0.5 mg PO QHS [facility] Last Admin: 11/06/19 22:30 Dose: 0.5 mg Documented by: Pravastatin Sodium (Pravachol) 20 mg PO QHS [facility] Last Admin: 11/06/19 22:30 Dose: 20 mg Documented by: Risperidone (Risperdal) 2 mg PO QHS [facility] Last Admin: 11/06/19 22:30 Dose: 2 mg Documented by: Senna/Docusate Sodium (Senokot-S, Celia-Colace) 2 tablet PO BID PRN PRN PRN Reason: Constipation Sodium Chloride () 10 - 40 ml IV UD PRN PRN Reason: SALINE FLUSH Last Admin: 11/07/19 00:45 Dose: 10 ml Documented by: Venlafaxine HCl (Effexor Xr) 37.5 mg PO DAILY [facility] Last Admin: 11/07/19 09:48 Dose: 37.5 mg Documented by: STROKE Vital Signs/Narrative: Vital Signs Temp Pulse Resp BP Pulse Ox 11/07/19 11:01 116 H 18 96 11/07/19 11:00 36.4 C L 115 H 20 H 156/86 H 96 Assessment/Plan Patient seen and examined independently. Data reviewed. I agree with the above note by the physician assistant superintendent for curriculum. 1. Acute exacerbation of COPD: Still tachycardic requiring a BiPAP off and on. Will increase steroids from prednisone to methylprednisolone and continue with bronchodilators. Code Visit Inpatient E&M: 77983 Subs Hosp L2
[2019-11-07] MEDS: Lubiprostone 24 MCG Capsule PO ×2 (12:53→21:32)
[2019-11-07 17:46] LABS: Bedside Glucose 283 mg/dL (70-110)
[2019-11-07] MEDS: RisperiDONE 2 MG Tablet PO (21:30)
[2019-11-07] MEDS: Pramipexole Di-HCl 0.5 MG Tablet PO (21:30)
[2019-11-07] MEDS: Pravastatin 20 MG Tablet PO (21:58)
[2019-11-07 22:30] LABS: Bedside Glucose 278 mg/dL (70-110)
[2019-11-08] VITALS (15 sets, daily range): BP systolic 117–151; BP diastolic 63–83; PULSE 97–116; RESP 12–24; TEMP 36.4–37.1; O2SAT 95–96
[2019-11-08] MEDS: Insulin Lispro 100 UNIT/ML INSULN.PEN SC ×4 (06:31→21:51)
[2019-11-08] MEDS: glipiZIDE 5 MG Tablet PO ×2 (06:31→16:23)
[2019-11-08 06:55] LABS: Bedside Glucose 247 mg/dL (70-110)
[2019-11-08] MEDS: Ipratropium/Albuterol Sulfate 3 ML AMPUL.NEB INHALATION ×3 (07:15→20:00)
[2019-11-08] MEDS: clonazePAM 0.5 MG Tablet PO ×2 (08:04→21:51)
[2019-11-08] MEDS: Albuterol 2.5 MG/3 ML VIAL.NEB. INHALATION (09:12)
[2019-11-08] MEDS: Pantoprazole Sodium 20 MG Tablet PO (09:34)
[2019-11-08] MEDS: Amox/Clavulanate 875 MG Tablet PO ×2 (09:34→21:51)
[2019-11-08] MEDS: Venlafaxine XR 37.5 MG Capsule PO (09:34)
[2019-11-08] MEDS: Furosemide 20 MG Tablet PO (09:34)
[2019-11-08] MEDS: Lubiprostone 24 MCG Capsule PO ×2 (09:35→21:50)
[2019-11-08] MEDS: guaiFENesin 1,200 MG Tablet 1200 MG PO ×2 (09:36→21:51)
[2019-11-08] MEDS: Enoxaparin 40 MG/0.4 ML Syringe SC (09:36)
[2019-11-08] MEDS: Aspirin E.C. 325 MG Tablet PO (09:37)
[2019-11-08] MEDS: clonazePAM 1 MG Tablet PO (11:33)
[2019-11-08 11:46] LABS: Bedside Glucose 382 mg/dL (70-110)
[2019-11-08] MEDS: Acetaminophen 325 MG Tablet 650 MG PO (13:03)
[2019-11-08] MEDS: 0.9% Saline Lock 10 ML Syringe IV (13:04)
--- NOTE | 2019-11-08 14:01 | PCM.PN.HOSP ---
<Hemanth Carrizales - Last Filed: 11/08/19 14:01> Patient Problems: Active and Suspected Problems COPD exacerbation (Acute) Elevated troponin (Acute) Anxiety attack (Acute) Reason for Visit: SOB Subjective: SOB improving. Ongoing paroxysmal coughing. No CP. No LE edema. Pt on baseline o2 and stable. No fever/chills. Pt nervous about returning home yet, still feels poor. Vitals/I&O's: Vital Signs Temp Pulse Resp BP Pulse Ox 97.6 F L 101 H 20 H 151/83 H 95 11/08/19 07:56 11/08/19 11:40 11/08/19 11:40 11/08/19 07:56 11/08/19 07:56 Oxygen Flow Rate (L/min) 3 Oxygen Delivery Method Nasal Cannula Weight: 197 lb 8.547 oz Body Mass Index (BMI) 37.3 Intake and Output for Last 24 Hours 11/06/19 11/07/19 11/08/19 23:59 23:59 23:59 Intake Total 867.5 / 1017.5 990 / 1410 900 / 900 Output Total 600 / 1100 800 / 800 Balance 867.5 / 1017.5 390 / 310 100 / 100 General: Alert, Oriented x3, Cooperative HEENT: Atraumatic, PERRLA, EOMI, Normocephalic Neck: Supple, No JVD, Negative Carotid Bruits Lungs: Diminished, Wheezes Cardiovascular: No murmurs, Tachycardic Abdomen: Bowel Sounds Present, Soft, Non Tender Extremities: No edema, Capillary Refill Less than 3 Seconds Skin: No rashes, No breakdown Musculoskeletal: No Tenderness to Palpation of Joints or Extremities Neurological: Cranial nerves II-XII grossly intact Psych/Mental Status: Normal Affect, Appropriate, Alert and oriented to time, place, person, mood and affect Microbiology Past 72 Hours 11/07/19 10:00 Urine, Clean Catch Urine Culture - Preliminary Culture exhibits no growth. Laboratory Results 11/07/19 16:35: POC Glucose 283 H 11/07/19 21:25: POC Glucose 278 H 11/08/19 06:28: POC Glucose 247 H 11/08/19 11:29: POC Glucose 382 H Current Medications Acetaminophen (Tylenol) 650 mg PO Q6H PRN PRN PRN Reason: Pain Score 1-3/Temp > 100.7 F Last Admin: 11/08/19 13:03 Dose: 650 mg Documented by: Albuterol Sulfate (Ventolin Aerosols) 2.5 mg INHALATION Q2H PRN PRN PRN Reason: SHORTNESS OF BREATH Last Admin: 11/08/19 09:12 Dose: 2.5 mg Documented by: Albuterol/Ipratropium (Duoneb) 3 ml INHALATION Q4HWA.RT [facility] Last Admin: 11/08/19 11:51 Dose: 3 ml Documented by: Amoxicillin/Clavulanate Potassium (Augmentin Tablet) 875 mg PO Q12 [facility] Last Admin: 11/08/19 09:34 Dose: 875 mg Documented by: Aspirin (Ecotrin) 325 mg PO DAILY [facility] [place] Last Admin: 11/08/19 09:37 Dose: 325 mg Documented by: Benzonatate (Tessalon Perle) 100 mg PO Q8H PRN PRN PRN Reason: COUGH Last Admin: 11/07/19 21:29 Dose: 100 mg Documented by: Clonazepam (Klonopin) 0.5 mg PO BREAKFAST [facility] [place] Last Admin: 11/08/19 08:04 Dose: 0.5 mg Documented by: Clonazepam (Klonopin) 1 mg PO 1200 [facility] Last Admin: 11/08/19 11:33 Dose: 1 mg Documented by: Clonazepam (Klonopin) 0.5 mg PO QHS [facility] [place] Last Admin: 11/07/19 21:29 Dose: 0.5 mg Documented by: Clozapine (Clozaril) 100 mg PO LUNCH [facility] [place] Last Admin: 11/08/19 11:33 Dose: 100 mg Documented by: Clozapine (Clozaril) 200 mg PO DINNER [facility] Last Admin: 11/07/19 16:38 Dose: 200 mg Documented by: Clozapine (Clozaril) 300 mg PO QHS [facility] [place] Last Admin: 11/07/19 21:29 Dose: 300 mg Documented by: Dextrose (D50w Syringe) 0 gm IV X1 PRN; Protocol PRN Reason: Hypoglycemia Enoxaparin Sodium (Lovenox) 40 mg SC DAILY [facility] Last Admin: 11/08/19 09:36 Dose: 40 mg Documented by: Ferrous Gluconate (Ferrous Gluconate) 324 mg PO 1200,1700 [facility] [place] Last Admin: 11/08/19 13:03 Dose: Not Given Documented by: Furosemide (Lasix) 20 mg PO DAILY [facility] [place] Last Admin: 11/08/19 09:34 Dose: 20 mg Documented by: [facility]) [facility] Last Admin: 11/08/19 06:31 Dose: 5 mg Documented by: Glucagon () 1 mg IM .X1 PRN PRN Reason: Hypoglycemia Guaifenesin (Mucinex) 1,200 mg PO BID [facility] [place] Last Admin: 11/08/19 09:36 Dose: 1,200 mg Documented by: Sodium Chloride () 250 mls @ 15 mls/hr IV .[id number] PRN PRN Reason: Saline Flush Insulin Glargine (Lantus ([facility])) 42 units SC 1100 [facility] [place] Last Admin: 11/08/19 11:32 Dose: 42 u Documented by: Insulin Human Lispro (Humalog Kwikpen ([facility])) 0 unit SC ACHS [facility]; Protocol Last Admin: 11/08/19 11:31 Dose: 10 unit Documented by: Labetalol HCl (Trandate) 10 mg IV Q4H PRN PRN PRN Reason: SBP > 160 Lubiprostone (Amitiza) 24 mcg PO BID [facility] [place] Last Admin: 11/08/19 09:35 Dose: 24 mcg Documented by: Magnesium Hydroxide (Milk Of Magnesia) 30 ml PO DAILY PRN PRN PRN Reason: Constipation Methylprednisolone (Solu-Medrol) 40 mg IV Q8 [facility] Last Admin: 11/08/19 13:03 Dose: 40 mg Documented by: Ondansetron HCl (Zofran) 4 mg IV Q8H PRN PRN PRN Reason: NAUSEA/VOMITING Oxymetazoline HCl (Afrin ([facility])) 2 spray NS BID PRN PRN PRN Reason: CONGESTION Pantoprazole Sodium (Protonix) 20 mg PO DAILY [facility] [place] Last Admin: 11/08/19 09:34 Dose: 20 mg Documented by: Potassium Chloride (K-Dur) [facility] Last Admin: 11/08/19 08:04 Dose: 20 meq Documented by: Pramipexole Dihydrochloride (Mirapex) 0.5 mg PO QHS [facility] Last Admin: 11/07/19 21:30 Dose: 0.5 mg Documented by: Pravastatin Sodium (Pravachol) 20 mg PO QHS [facility] Last Admin: 11/07/19 21:58 Dose: 20 mg Documented by: Risperidone (Risperdal) 2 mg PO QHS [facility] [place] Last Admin: 11/07/19 21:30 Dose: 2 mg Documented by: Senna/Docusate Sodium (Senokot-S, Celia-Colace) 2 tablet PO BID PRN PRN PRN Reason: Constipation Sodium Chloride () 10 - 40 ml IV UD PRN PRN Reason: SALINE FLUSH Last Admin: 11/08/19 13:04 Dose: 10 ml Documented by: Venlafaxine HCl (Effexor Xr) 37.5 mg PO DAILY [facility] Last Admin: 11/08/19 09:34 Dose: 37.5 mg Documented by: STROKE Vital Signs/Narrative: Vital Signs Pulse Resp 11/08/19 11:40 101 H 20 H 11/08/19 11:03 109 H Medical Necessity - Tobacco Use Smoking Status: Former smoker Assessment/Plan All Active Problems COPD exacerbation (Acute) Elevated troponin (Acute) Anxiety attack (Acute) 1. Acute COPD exacerbation, chronic hypoxic resp failure - aerosols, Solumedrol. at baseline o2. Transition to prednisone tomorrow. 2. Anxiety attack - resolved. continue klonopin 3. Elevated trop - stable. EKG neg for acute ischemic process. Stachy on monitor. 4. Acute sepsis 2/2 residual pna - continue augmentin. + fever/leukocytosis/tachycardia/tahcypnea, negative lactate. UA negative. Blood cx pending. 5. Dmt2 with obesity - continue glipizide, lantus, SSI. 6. Schizophrenia - continue home meds. flat affect. 7. LIDA - continue bipap qhs 8. IBS - amizita 9. HLD - statin DVT ppx: lovenox DC planning: return to retirement, likely tomorrow This patient was seen by Hemanth Carrizales PA-C under the supervision of Doctor Chuckie <Lauro Noguera - Last Filed: 11/08/19 14:57> Vitals/I&O's: Vital Signs Temp Pulse Resp BP Pulse Ox 97.5 F L 104 H 18 119/81 H 95 11/08/19 14:05 11/08/19 14:05 11/08/19 14:05 11/08/19 14:05 11/08/19 14:05 Oxygen Flow Rate (L/min) 3 Oxygen Delivery Method Nasal Cannula Weight: 89.6 kg Body Mass Index (BMI) 37.3 Intake and Output for Last 24 Hours 11/06/19 11/07/19 11/08/19 23:59 23:59 23:59 Intake Total 867.5 / 1017.5 990 / 1410 900 / 900 Output Total 600 / 1100 800 / 800 Balance 867.5 / 1017.5 390 / 310 100 / 100 Microbiology Past 72 Hours 11/07/19 10:00 Urine, Clean Catch Urine Culture - Preliminary Culture exhibits no growth. Laboratory Results 11/07/19 16:35: POC Glucose 283 H 11/07/19 21:25: POC Glucose 278 H 11/08/19 06:28: POC Glucose 247 H 11/08/19 11:29: POC Glucose 382 H Current Medications Acetaminophen (Tylenol) 650 mg PO Q6H PRN PRN PRN Reason: Pain Score 1-3/Temp > 100.7 F Last Admin: 11/08/19 13:03 Dose: 650 mg Documented by: Albuterol Sulfate (Ventolin Aerosols) 2.5 mg INHALATION Q2H PRN PRN PRN Reason: SHORTNESS OF BREATH Last Admin: 11/08/19 09:12 Dose: 2.5 mg Documented by: Albuterol/Ipratropium (Duoneb) 3 ml INHALATION Q4HWA.RT [facility] Last Admin: 11/08/19 11:51 Dose: 3 ml Documented by: Amoxicillin/Clavulanate Potassium (Augmentin Tablet) 875 mg PO Q12 [facility] [place] Last Admin: 11/08/19 09:34 Dose: 875 mg Documented by: Aspirin (Ecotrin) 325 mg PO DAILY [facility] Last Admin: 11/08/19 09:37 Dose: 325 mg Documented by: Benzonatate (Tessalon Perle) 100 mg PO Q8H PRN PRN PRN Reason: COUGH Last Admin: 11/07/19 21:29 Dose: 100 mg Documented by: Clonazepam (Klonopin) 0.5 mg PO BREAKFAST [facility] Last Admin: 11/08/19 08:04 Dose: 0.5 mg Documented by: Clonazepam (Klonopin) 1 mg PO 1200 [facility] [place] Last Admin: 11/08/19 11:33 Dose: 1 mg Documented by: Clonazepam (Klonopin) 0.5 mg PO QHS [facility] [place] Last Admin: 11/07/19 21:29 Dose: 0.5 mg Documented by: Clozapine (Clozaril) 100 mg PO LUNCH [facility] [place] Last Admin: 11/08/19 11:33 Dose: 100 mg Documented by: Clozapine (Clozaril) 200 mg PO DINNER [facility] Last Admin: 11/07/19 16:38 Dose: 200 mg Documented by: Clozapine (Clozaril) 300 mg PO QHS [facility] Last Admin: 11/07/19 21:29 Dose: 300 mg Documented by: Dextrose (D50w Syringe) 0 gm IV X1 PRN; Protocol PRN Reason: Hypoglycemia Enoxaparin Sodium (Lovenox) 40 mg SC DAILY [facility] [place] Last Admin: 11/08/19 09:36 Dose: 40 mg Documented by: Ferrous Gluconate (Ferrous Gluconate) 324 mg PO 1200,1700 [facility] Last Admin: 11/08/19 13:03 Dose: Not Given Documented by: Furosemide (Lasix) 20 mg PO DAILY [facility] [place] Last Admin: 11/08/19 09:34 Dose: 20 mg Documented by: Glipizide (Glucotrol) 5 mg PO BIDAC [facility] Last Admin: 11/08/19 06:31 Dose: 5 mg Documented by: Glucagon () 1 mg IM .X1 PRN PRN Reason: Hypoglycemia Guaifenesin (Mucinex) 1,200 mg PO BID [facility] Last Admin: 11/08/19 09:36 Dose: 1,200 mg Documented by: Sodium Chloride () 250 mls @ 15 mls/hr IV .[id number] PRN PRN Reason: Saline Flush Insulin Glargine (Lantus ([facility])) 42 units SC 1100 [facility] Last Admin: 11/08/19 11:32 Dose: 42 u Documented by: Insulin Human Lispro (Humalog Kwikpen ([facility])) 0 unit SC ACHS [facility]; Protocol Last Admin: 11/08/19 11:31 Dose: 10 unit Documented by: Labetalol HCl (Trandate) 10 mg IV Q4H PRN PRN PRN Reason: SBP > 160 Lubiprostone (Amitiza) 24 mcg PO BID [facility] Last Admin: 11/08/19 09:35 Dose: 24 mcg Documented by: Magnesium Hydroxide (Milk Of Magnesia) 30 ml PO DAILY PRN PRN PRN Reason: Constipation Methylprednisolone (Solu-Medrol) 40 mg IV Q8 [facility] [place] Last Admin: 11/08/19 13:03 Dose: 40 mg Documented by: Ondansetron HCl (Zofran) 4 mg IV Q8H PRN PRN PRN Reason: NAUSEA/VOMITING Oxymetazoline HCl (Afrin ([facility])) 2 spray NS BID PRN PRN PRN Reason: CONGESTION Pantoprazole Sodium (Protonix) 20 mg PO DAILY [facility] [place] Last Admin: 11/08/19 09:34 Dose: 20 mg Documented by: Potassium Chloride (K-Dur) 20 meq PO DAILYCM [facility] Last Admin: 11/08/19 08:04 Dose: 20 meq Documented by: Pramipexole Dihydrochloride (Mirapex) 0.5 mg PO QHS [facility] Last Admin: 11/07/19 21:30 Dose: 0.5 mg Documented by: Pravastatin Sodium (Pravachol) 20 mg PO QHS [facility] Last Admin: 11/07/19 21:58 Dose: 20 mg Documented by: Risperidone (Risperdal) 2 mg PO QHS [facility] Last Admin: 11/07/19 21:30 Dose: 2 mg Documented by: Senna/Docusate Sodium (Senokot-S, Celia-Colace) 2 tablet PO BID PRN PRN PRN Reason: Constipation Sodium Chloride () 10 - 40 ml IV UD PRN PRN Reason: SALINE FLUSH Last Admin: 11/08/19 13:04 Dose: 10 ml Documented by: Venlafaxine HCl (Effexor Xr) 37.5 mg PO DAILY [facility] Last Admin: 11/08/19 09:34 Dose: 37.5 mg Documented by: STROKE Vital Signs/Narrative: Vital Signs Temp Pulse Resp BP Pulse Ox 11/08/19 14:05 97.5 F L 104 H 18 119/81 H 95 11/08/19 11:40 101 H 20 H 11/08/19 11:03 109 H Assessment/Plan This patient was seen in conjunction with Hemanth Carrizales PA-C . I have independently interviewed and examined the patient and reviewed pertinent historical, laboratory, and other data. Please refer to Hemanth Carrizales PA-C note for details of this patient's presentation, findings, and recommendations. I have reviewed Hemanth Carrizales PA-C note and concur with documented findings. In brief, patient is a 53-year-old lady who presented with progressive shortness of breath and assessment of COPD with acute exacerbation made. Admitted to a monitored bed where patient is being managed. Patient was found to have elevated troponin attributed to demand ischemia Physical Examination: GENERAL: cooperative HEENT: Atraumatic; EYES; Anicteric, Normal Conjunctiva NECK; supple, normal thyroid, RESPIRATORY: Diminished to auscultation CARDIOVASCULAR: Regular S1 S2, NEURO: Awake; no lateralizing signs. SKIN: No Rash PSYCH; Flat affect Assessment: 1. Acute respiratory insufficiency secondary to COPD with acute exacerbation 2. Elevated troponin secondary from demand ischemia 3. Anxiety attack 4. Chronic diastolic congestive heart failure stable 5. 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 Obstructive sleep apnea patient is on CPAP at night 7. Schizophrenia currently stable 8. Dyslipidemia-patient is on statin therapy, continued at home dose 9. Obesity with BMI of 37 10. DVT prophylaxis SC Lovenox Recommendations: 1. I have discussed the results of my overview and impressions with the patient 2. Options for management were reviewed Code Visit Inpatient E&M: 37564 Subs Hosp L2
[2019-11-08] MEDS: Ferrous Gluconate 324 MG Tablet PO (16:21)
[2019-11-08 16:36] LABS: Bedside Glucose 318 mg/dL (70-110)
[2019-11-08] MEDS: Glycerin/Hypromellose/PEG400 15 ml Bottle 2 DRP EACH EYE (18:25)
[2019-11-08] MEDS: Pravastatin 20 MG Tablet PO (21:50)
[2019-11-08] MEDS: Pramipexole Di-HCl 0.5 MG Tablet PO (21:51)
[2019-11-08] MEDS: RisperiDONE 2 MG Tablet PO (21:51)
[2019-11-08 22:16] LABS: Bedside Glucose 300 mg/dL (70-110)
[2019-11-09] VITALS (18 sets, daily range): BP systolic 105–137; BP diastolic 58–83; PULSE 89–114; RESP 12–24; TEMP 36.2–37; O2SAT 88–98
[2019-11-09 05:51] LABS: Absolute Lymphocyte Count 2.12 X10^3/uL (0.83-4.51); Absolute Neutrophil Count 13.5 X10^3/uL (2.0-7.7); Basophil# 0.03 X10^3/uL; Basophil% 0.2 % (0-1); Hematocrit 39.1 % (37-47); Hemoglobin 12.4 g/dL (12.0-15.0); Lymphocyte # 2.12 X10^3/ul (4.0); Lymphocyte % 12.6 % (19-41); Mean Corp Hgb Conc 31.7 g/dL (32-36); Mean Corpuscular Hgb 29.1 pg (27.0-32.0); Mean Corpuscular Volume 91.8 fL (81-99); Mean Platelet Vol. 9.4 fl (6.2-12.0); Monocyte# 0.74 X10^3/uL; Monocyte% 4.4 % (0-10); NRBC Flagged by Analyzer 0 % (0-5); Neutrophil # 13.53 X10^3/uL (2.7-7.7); Neutrophil % 80.3 % (47-70); Platelet Count 250 K/mm3 (150-450); RBC Distribution Width CV 13.8 % (11.6-14.6); RBC Distribution Width SD 46.7 fl (35.1-43.9); Red Blood Count 4.26 M/mm3 (4.2-5.4); White Blood Count 16.8 K/mm3 (4.4-11.0)
[2019-11-09 06:21] LABS: Anion Gap 2 (5-15); BUN 14 mg/dL (7-18); BUN/Creat Ratio 22.9 RATIO (10-20); Calcium,Total 9.2 mg/dL (8.5-10.1); Chloride 96 mmol/L (98-107); Creatinine, Serum 0.61 mg/dL (0.55-1.02); EST Glomerular Filtration Rate 108 mL/min (>60); Est Glom Filt Rate - Afr Amer 130 mL/min (>60); Estimated Creatinine Clearance 78.63 ml/min; Glucose 258 mg/dL (74-106); Potassium 4.5 mmol/L (3.5-5.1); Sodium Level 132 mmol/L (136-145)
[2019-11-09] MEDS: Insulin Lispro 100 UNIT/ML INSULN.PEN SC ×4 (06:41→22:25)
[2019-11-09] MEDS: glipiZIDE 5 MG Tablet PO ×2 (06:41→16:16)
[2019-11-09 06:56] LABS: Bedside Glucose 246 mg/dL (70-110)
[2019-11-09] MEDS: Ipratropium/Albuterol Sulfate 3 ML AMPUL.NEB INHALATION ×4 (07:07→23:30)
[2019-11-09] MEDS: Aspirin E.C. 325 MG Tablet PO (08:21)
[2019-11-09] MEDS: Amox/Clavulanate 875 MG Tablet PO ×2 (08:21→22:09)
[2019-11-09] MEDS: Lubiprostone 24 MCG Capsule PO ×2 (08:24→22:26)
[2019-11-09] MEDS: Furosemide 20 MG Tablet PO (08:24)
[2019-11-09] MEDS: Venlafaxine XR 37.5 MG Capsule PO (08:24)
[2019-11-09] MEDS: Benzonatate 100 MG Capsule PO ×2 (08:25→22:09)
[2019-11-09] MEDS: guaiFENesin 1,200 MG Tablet 1200 MG PO ×2 (08:25→22:09)
[2019-11-09] MEDS: Enoxaparin 40 MG/0.4 ML Syringe SC (08:25)
[2019-11-09] MEDS: Pantoprazole Sodium 20 MG Tablet PO (08:25)
[2019-11-09] MEDS: 0.9% Saline Lock 10 ML Syringe IV (08:25)
[2019-11-09] MEDS: Senna/Docusate Sodium 1 Tablet 2 TABLET PO ×2 (08:25→22:09)
[2019-11-09] MEDS: clonazePAM 0.5 MG Tablet PO ×2 (08:28→22:08)
--- NOTE | 2019-11-09 10:01 | PCM.DC ---
- Discharge Diagnoses Current Active Problems: Current Active and Chronic Problems COPD exacerbation (Acute) Elevated troponin (Acute) Anxiety attack (Acute) COPD (chronic obstructive pulmonary disease) (Chronic) You will use the following diet at home:: Cardiac Your food should be the consistency of: Regular Your liquids should be the consistency of: Regular/Thin Discharge Activity: Return to Normal Activity Additional Instructions: avoid all smoke exposure Allergies/Adverse Reactions: Allergies No Known Allergies Allergy (Verified 11/06/19 15:26) Medications to take at Discharge Clozapine [Clozaril] 100 mg PO LUNCH 03/28/14 Risperidone [Risperdal] 2 mg PO QHS 03/28/14 glipiZIDE [Glucotrol] 5 mg PO BIDAC 03/28/14 metFORMIN HCl [Glucophage] 1,000 mg PO BID 03/28/14 Clozapine [Clozaril] 300 mg PO QHS 12/23/14 Insulin Glargine [Lantus SoloStar Pen] 42 units SC DAILY 12/23/14 Desvenlafaxine Succinate [Pristiq] 50 mg PO DAILY 07/25/15 Risperidone Microspheres [Risperdal Consta] 50 mg IM Q14D 07/25/15 Pravastatin Sodium 20 mg PO QHS 12/18/16 Clozapine [Clozaril] 200 mg PO DINNER 10/11/17 Potassium Chloride [K-Dur] 20 meq PO DAILY #30 tab 10/16/17 Cholecalciferol (Vitamin D3) [Vitamin D3] 1,000 unit PO DAILY 10/17/17 [place]-3 Fatty Acids/Fish Oil [Fish Oil 1,000 mg Capsule] 1 each PO DAILY 10/17/17 Albuterol IH (ProAir) [Proair Hfa] 2 puff INHALATION PRN PRN 07/22/18 Aspirin [Aspirin EC] 325 mg PO DAILY 07/22/18 Clonazepam [Klonopin] 0.5 mg PO BREAKFAST 07/22/18 Clonazepam [Klonopin] 0.5 mg PO QHS 07/22/18 Clonazepam [Klonopin] 1 mg PO 1200 07/22/18 Ferrous Gluconate 325 mg PO BIDCM 07/22/18 Fluticasone/Vilanterol [Breo Ellipta 100-25 Mcg INH] 1 puff IH DAILY 07/22/18 Furosemide [Lasix] 20 mg PO DAILY 07/22/18 Lubiprostone [Amitiza] 24 mcg PO BID 07/22/18 Acetaminophen [Mapap] 500 - 1,000 mg PO TID PRN PRN 10/31/19 Magnesium Hydroxide [Milk Of Magnesia] 30 ml PO DAILY PRN PRN 10/31/19 Omeprazole 20 mg PO DAILY 10/31/19 Oxymetazoline HCl [Nasal Relief] 2 spray NS PRN PRN 10/31/19 Pramipexole Di-HCl [Mirapex] 0.5 mg PO QHS 10/31/19 Umeclidinium [place] Inhaler [Incruse Ellipta Inhaler] 1 puff IH DAILY 10/31/19 Wheat Dextrin [Benefiber] 15 ml PO DAILY 10/31/19 Amox/Clavulanate Tablet [Augmentin Tablet] 875 mg PO Q12 tab 11/09/19 Benzonatate [Tessalon Perle] 100 mg PO Q8H PRN PRN #12 cap 11/09/19 Prednisone 10 mg PO UD #30 tab 11/09/19 The following prescriptions were given: Prednisone 10 mg PO UD #30 tab Transmission Status: Pending to [facility] Benzonatate [Tessalon Perle] 100 mg PO Q8H PRN PRN #12 cap PRN Reason: Cough Transmission Status: Pending to [facility] Primary Care Physician: Boris Vance MD [Primary Care Provider] - Please follow up with your Primary Care Physician in: 1-2 weeks Test Results: Test results from this visit will be discussed in further detail at your follow-up appointment, if applicable. Please Follow Up With: Koby Ramirez MD When: 1-2 weeks Proposed Discharge Date: 11/09/19
[2019-11-09] MEDS: clonazePAM 1 MG Tablet PO (11:14)
[2019-11-09] MEDS: Ferrous Gluconate 324 MG Tablet PO ×2 (11:15→16:17)
--- NOTE | 2019-11-09 11:26 | CASEMGMT ---
JONNY called patient's caregiver, Leola about discharge. She told JONNY that SW will have to call the skilled nursing to facilitate this. JONNY called the skilled nursing and spoke with Tootie. She said that she is just covering right now so SW will have to call back around 1230. Jannette FIELDS MSW
[2019-11-09 11:31] LABS: Bedside Glucose 291 mg/dL (70-110)
--- NOTE | 2019-11-09 12:03 | PHA.DC.MR ---
Pharmacy Service has performed discharge medication reconciliation for this patient upon transfer to [facility]. The patient's discharge medication list was reviewed for discrepancies and discrepancies were resolved. Home Medications Clozapine [Clozaril] 100 mg PO LUNCH 03/28/14 Risperidone [Risperdal] 2 mg PO QHS 03/28/14 glipiZIDE [Glucotrol] 5 mg PO BIDAC 03/28/14 metFORMIN HCl [Glucophage] 1,000 mg PO BID 03/28/14 Clozapine [Clozaril] 300 mg PO QHS 12/23/14 Insulin Glargine [Lantus SoloStar Pen] 42 units SC DAILY 12/23/14 Desvenlafaxine Succinate [Pristiq] 50 mg PO DAILY 07/25/15 Risperidone Microspheres [Risperdal Consta] 50 mg IM Q14D 07/25/15 Pravastatin Sodium 20 mg PO QHS 12/18/16 Clozapine [Clozaril] 200 mg PO DINNER 10/11/17 Potassium Chloride [K-Dur] 20 meq PO DAILY #30 tab 10/16/17 Cholecalciferol (Vitamin D3) [Vitamin D3] 1,000 unit PO DAILY 10/17/17 [place]-3 Fatty Acids/Fish Oil [Fish Oil 1,000 mg Capsule] 1 each PO DAILY 10/17/17 Albuterol IH (ProAir) [Proair Hfa] 2 puff INHALATION PRN PRN 07/22/18 Aspirin [Aspirin EC] 325 mg PO DAILY 07/22/18 Clonazepam [Klonopin] 0.5 mg PO BREAKFAST 07/22/18 Clonazepam [Klonopin] 0.5 mg PO QHS 07/22/18 Clonazepam [Klonopin] 1 mg PO 1200 07/22/18 Ferrous Gluconate 325 mg PO BIDCM 07/22/18 Fluticasone/Vilanterol [Breo Ellipta 100-25 Mcg INH] 1 puff IH DAILY 07/22/18 Furosemide [Lasix] 20 mg PO DAILY 07/22/18 Lubiprostone [Amitiza] 24 mcg PO BID 07/22/18 Acetaminophen [Mapap] 500 - 1,000 mg PO TID PRN PRN 10/31/19 Magnesium Hydroxide [Milk Of Magnesia] 30 ml PO DAILY PRN PRN 10/31/19 Omeprazole 20 mg PO DAILY 10/31/19 Oxymetazoline HCl [Nasal Relief] 2 spray NS PRN PRN 10/31/19 Pramipexole Di-HCl [Mirapex] 0.5 mg PO QHS 10/31/19 Umeclidinium [place] Inhaler [Incruse Ellipta Inhaler] 1 puff IH DAILY 10/31/19 Wheat Dextrin [Benefiber] 15 ml PO DAILY 10/31/19 Amox/Clavulanate Tablet [Augmentin Tablet] 875 mg PO Q12 tab 11/09/19 Benzonatate [Tessalon Perle] 100 mg PO Q8H PRN PRN #12 cap 11/09/19 Prednisone 10 mg PO UD #30 tab 11/09/19
--- NOTE | 2019-11-09 12:46 | CASEMGMT ---
Addendum entered by Jannette Toth 11/09/19 12:50: JONNY called patient's legal guardian, Melony Willard and left her a voice mail letting her know patient is being discharged from the hospital today. Jannette QUINN Original Note: JONNY called patient's nursing home again and was told that there is only 1 person working so she cannot black pickler patient. JONNY called Leola back and let her know. She said she could pick her up around 3p. JONNY notified RN. Jannette QUINN
--- NOTE | 2019-11-09 13:07 | PCM.DC.SUM ---
<Hemanth Carrizales - Last Filed: 11/09/19 13:07> Discharge Date and Diagnosis - Problem List Patient Problems: Active and Suspected Problems COPD exacerbation (Acute) Elevated troponin (Acute) Anxiety attack (Acute) Date of Admission: 11/06/19 Date of Discharge: 11/09/19 - Primary Discharge Diagnosis Active and Suspected Problems COPD exacerbation (Acute) Anxiety attack Acute sepsis secondary to residual pneumonia Elevated troponin secondary to increased oxygen demand secondary to #1 Chronic hypoxic respiratory failure secondary to COPD Type 2 diabetes mellitus Schizophrenia Obstructive sleep apnea Irritable bowel syndrome Hyperlipidemia - Secondary Discharge Diagnosis Chronic Problems COPD (chronic obstructive pulmonary disease) (Chronic) Hyperlipidemia (Chronic) Diabetes mellitus type 2 in obese (Chronic) HTN (hypertension) (Chronic) Schizophrenia (Chronic) Hospital Course and Treatment Imaging Results: RAD/Chest 1 View (Portable) IMPRESSION: Near complete clearing of bilateral pulmonary infiltrates evident on the prior study. Operations: None Procedures: None Summary of Care Provided: Hospital Course: The patient is a 53 year old F with past medical history notable for recent discharge from the hospital with pneumonia, sent home on Augmentin, who went back to her [facility] where [facility] due to schizophrenia. At the [facility] her breathing became worse and she came back to the emergency room. She had increased wheezing, chest x-ray demonstrated clearing of the prior pneumonia however she did have fever, tachycardia, tachypnea. She was felt to have an asthma attack as well complicating her breathing. She is felt to have a COPD exacerbation. She is given Ativan, Solu-Medrol, breathing treatments. She was felt to have some sepsis secondary to residual pneumonia. Her Augmentin was continued for that. She was placed into the PCU on telemetry as she had an indeterminate troponin which was felt to be secondary to increased oxygen demand. She had no chest pain or acute EKG changes. She was able to be weaned to her baseline oxygen level which is 3 L/min via nasal cannula. She was transitioned to a prednisone taper. She will need to complete her outpatient Augmentin. She was advised to follow-up with her PCP in 1 to 2 weeks. She will need to follow-up with her judge clerk ideally in 1 to 2 weeks. Blood cultures were negative. She was [facility] to [facility] in stable condition. This patient was seen by Hemanth Carrizales PA-C under the supervision of Doctor Chuckie. [] Patient Problems: Active and Suspected Problems COPD exacerbation (Acute) Elevated troponin (Acute) Anxiety attack (Acute) - Physical Exam Vitals/I&O's: Vital Signs Temp Pulse Resp BP Pulse Ox 97.9 F 102 H 18 136/72 H 96 11/09/19 09:28 11/09/19 09:28 11/09/19 09:28 11/09/19 09:28 11/09/19 09:28 Oxygen Flow Rate (L/min) 3 Oxygen Delivery Method Bi-pap Weight: 197 lb 8.547 oz Body Mass Index (BMI) 37.3 Intake and Output for Last 24 Hours 11/07/19 11/08/19 11/09/19 23:59 23:59 23:59 Intake Total 990 / 1410 1500 / 1500 560 / 560 Output Total 600 / 1100 2150 / 2150 400 / 400 Balance 390 / 310 -650 / -650 160 / 160 General: Alert, Oriented x3, Cooperative HEENT: Atraumatic, PERRLA, EOMI, Normocephalic Neck: Supple, No JVD, Negative Carotid Bruits Lungs: Clear to auscultation, Diminished Cardiovascular: Regular rate, No murmurs Abdomen: Bowel Sounds Present, Soft, Non Tender Extremities: No edema, Capillary Refill Less than 3 Seconds Skin: No rashes, No breakdown Musculoskeletal: No Tenderness to Palpation of Joints or Extremities Neurological: Cranial nerves II-XII grossly intact Psych/Mental Status: Normal Affect, Appropriate, Alert and oriented to time, place, person, mood and affect Microbiology Past 72 Hours 11/07/19 10:00 Urine, Clean Catch Urine Culture - Final Culture exhibits no growth. 11/07/19 00:55 Blood Culture (Wb) - Anticubital Left Blood Culture - Preliminary No growth in 48 hours. 11/07/19 00:35 Blood Culture (Wb) - Anticubital Right Blood Culture - Preliminary No growth in 48 hours. Laboratory Results 11/08/19 16:19: POC Glucose 318 H 11/08/19 21:46: POC Glucose 300 H 11/09/19 04:55: WBC 16.8 H, RBC 4.26, Hgb 12.4, Hct 39.1, MCV 91.8, MCH 29.1, MCHC 31.7 L, RDW Std Deviation 46.7 H, RDW Coeff of Tyesha 13.8, Plt Count 250, MPV 9.4, Immature Gran % (Auto) 2.500 H, Neut % (Auto) 80.3 H, Lymph % (Auto) 12.6 L, [place] % (Auto) 4.4, Eos % (Auto) 0.0, Baso % (Auto) 0.2, Absolute Neuts (auto) 13.5 H, Absolute Lymphs (auto) 2.12, Nucleated RBC % 0 11/09/19 04:55: Sodium 132 L, Potassium 4.5, Chloride 96 L, Carbon Dioxide 34.0 H, Anion Gap 2 L, BUN 14, Creatinine 0.61, Estim Creat Clear Calc 78.63, Est GFR (MDRD) Af Amer 130, Est GFR (MDRD) Non-Af 108, BUN/Creatinine Ratio 22.9 H, Glucose 258 H, Calcium 9.2 11/09/19 06:39: POC Glucose 246 H 11/09/19 11:17: POC Glucose 291 H Current Medications Acetaminophen (Tylenol) 650 mg PO Q6H PRN PRN PRN Reason: Pain Score 1-3/Temp > 100.7 F Last Admin: 11/08/19 13:03 Dose: 650 mg Documented by: Albuterol Sulfate (Ventolin Aerosols) 2.5 mg INHALATION Q2H PRN PRN PRN Reason: SHORTNESS OF BREATH Last Admin: 11/08/19 09:12 Dose: 2.5 mg Documented by: Albuterol/Ipratropium (Duoneb) 3 ml INHALATION Q4HWA.RT [facility] Last Admin: 11/09/19 11:52 Dose: Not Given Documented by: Amoxicillin/Clavulanate Potassium (Augmentin Tablet) 875 mg PO Q12 [facility] Last Admin: 11/09/19 08:21 Dose: 875 mg Documented by: Aspirin (Ecotrin) 325 mg PO DAILY [facility] Last Admin: 11/09/19 08:21 Dose: 325 mg Documented by: Benzonatate (Tessalon Perle) 100 mg PO Q8H PRN PRN PRN Reason: COUGH Last Admin: 11/09/19 08:25 Dose: 100 mg Documented by: Clonazepam (Klonopin) 0.5 mg PO BREAKFAST [facility] Last Admin: 01/28/20 08:28 Dose: 0.5 mg Documented by: Clonazepam (Klonopin) 1 mg PO 1200 [facility] Last Admin: 11/09/19 11:14 Dose: 1 mg Documented by: Clonazepam (Klonopin) 0.5 mg PO QHS [facility] Last Admin: 11/08/19 21:51 Dose: 0.5 mg Documented by: Clozapine (Clozaril) 100 mg PO LUNCH [facility] Last Admin: 11/09/19 11:15 Dose: 100 mg Documented by: Clozapine (Clozaril) 200 mg PO DINNER [facility] Last Admin: 11/08/19 16:23 Dose: 200 mg Documented by: Clozapine (Clozaril) 300 mg PO QHS [facility] Last Admin: 11/08/19 21:50 Dose: 300 mg Documented by: Dextrose (D50w Syringe) 0 gm IV X1 PRN; Protocol PRN Reason: Hypoglycemia Enoxaparin Sodium (Lovenox) 40 mg SC DAILY [facility] Last Admin: 11/09/19 08:25 Dose: 40 mg Documented by: Ferrous Gluconate (Ferrous Gluconate) 324 mg PO 1200,1700 [facility] Last Admin: 11/09/19 11:15 Dose: 324 mg Documented by: Furosemide (Lasix) 20 mg PO DAILY [facility] Last Admin: 11/09/19 08:24 Dose: 20 mg Documented by: Glipizide (Glucotrol) 5 mg PO BIDAC [facility] Last Admin: 11/09/19 06:41 Dose: 5 mg Documented by: Glucagon () 1 mg IM .X1 PRN PRN Reason: Hypoglycemia Guaifenesin (Mucinex) 1,200 mg PO BID [facility] Last Admin: 11/09/19 08:25 Dose: 1,200 mg Documented by: Sodium Chloride () 250 mls @ 15 mls/hr IV .[id number] PRN PRN Reason: Saline Flush Insulin Glargine (Lantus (Bkc)) 42 units SC 1100 [facility] Last Admin: 11/09/19 11:17 Dose: 42 u Documented by: Insulin Human Lispro (Humalog Kwikpen (Bkc)) 0 unit SC ACHS [facility]; Protocol Last Admin: 11/09/19 11:18 Dose: 6 unit Documented by: Labetalol HCl (Trandate) 10 mg IV Q4H PRN PRN PRN Reason: SBP > 160 Lubiprostone (Amitiza) 24 mcg PO BID [facility] Last Admin: 11/09/19 08:24 Dose: 24 mcg Documented by: Magnesium Hydroxide (Milk Of Magnesia) 30 ml PO DAILY PRN PRN PRN Reason: Constipation Methylprednisolone (Solu-Medrol) 40 mg IV Q8 [facility] Last Admin: 11/09/19 06:41 Dose: 40 mg Documented by: Ondansetron HCl (Zofran) 4 mg IV Q8H PRN PRN PRN Reason: NAUSEA/VOMITING Oxymetazoline HCl (Afrin (Bkc)) 2 spray NS BID PRN PRN PRN Reason: CONGESTION Pantoprazole Sodium (Protonix) 20 mg PO DAILY [facility] Last Admin: 11/09/19 08:25 Dose: 20 mg Documented by: [facility] Last Admin: 11/09/19 08:20 Dose: 20 meq Documented by: Pramipexole Dihydrochloride (Mirapex) 0.5 mg PO QHS [facility] Last Admin: 11/08/19 21:51 Dose: 0.5 mg Documented by: Pravastatin Sodium (Pravachol) 20 mg PO QHS [facility] Last Admin: 11/08/19 21:50 Dose: 20 mg Documented by: Risperidone (Risperdal) 2 mg PO QHS [facility] Last Admin: 11/08/19 21:51 Dose: 2 mg Documented by: Senna/Docusate Sodium (Senokot-S, Celia-Colace) 2 tablet PO BID PRN PRN PRN Reason: Constipation Last Admin: 11/09/19 08:25 Dose: 2 tablet Documented by: Sodium Chloride () 10 - 40 ml IV UD PRN PRN Reason: SALINE FLUSH Last Admin: 11/09/19 08:25 Dose: 10 ml Documented by: Venlafaxine HCl (Effexor Xr) 37.5 mg PO DAILY [facility] Last Admin: 11/09/19 08:24 Dose: 37.5 mg Documented by: Discharge Diet: Low fat/ Low Cholesterol, 1800 Calorie Control Diet, 2000 mg Sodium Diet Discharge Activity: Return to Normal Activity Home Medications: Medications to take at Discharge Clozapine [Clozaril] 100 mg PO LUNCH 03/28/14 Risperidone [Risperdal] 2 mg PO QHS 03/28/14 glipiZIDE [Glucotrol] 5 mg PO BIDAC 03/28/14 metFORMIN HCl [Glucophage] 1,000 mg PO BID 03/28/14 Clozapine [Clozaril] 300 mg PO QHS 12/23/14 Insulin Glargine [Lantus SoloStar Pen] 42 units SC DAILY 12/23/14 Desvenlafaxine Succinate [Pristiq] 50 mg PO DAILY 07/25/15 Risperidone Microspheres [Risperdal Consta] 50 mg IM Q14D 07/25/15 Pravastatin Sodium 20 mg PO QHS 12/18/16 Clozapine [Clozaril] 200 mg PO DINNER 10/11/17 Potassium Chloride [K-Dur] 20 meq PO DAILY #30 tab 10/16/17 Cholecalciferol (Vitamin D3) [Vitamin D3] 1,000 unit PO DAILY 10/17/17 [place]-3 Fatty Acids/Fish Oil [Fish Oil 1,000 mg Capsule] 1 each PO DAILY 10/17/17 Albuterol IH (ProAir) [Proair Hfa] 2 puff INHALATION PRN PRN 07/22/18 Aspirin [Aspirin EC] 325 mg PO DAILY 07/22/18 Clonazepam [Klonopin] 0.5 mg PO BREAKFAST 07/22/18 Clonazepam [Klonopin] 0.5 mg PO QHS 07/22/18 Clonazepam [Klonopin] 1 mg PO 1200 07/22/18 Ferrous Gluconate 325 mg PO BIDCM 07/22/18 Fluticasone/Vilanterol [Breo Ellipta 100-25 Mcg INH] 1 puff IH DAILY 07/22/18 Furosemide [Lasix] 20 mg PO DAILY 07/22/18 Lubiprostone [Amitiza] 24 mcg PO BID 07/22/18 Acetaminophen [Mapap] 500 - 1,000 mg PO TID PRN PRN 10/31/19 Magnesium Hydroxide [Milk Of Magnesia] 30 ml PO DAILY PRN PRN 10/31/19 Omeprazole 20 mg PO DAILY 10/31/19 Oxymetazoline HCl [Nasal Relief] 2 spray NS PRN PRN 10/31/19 Pramipexole Di-HCl [Mirapex] 0.5 mg PO QHS 10/31/19 Umeclidinium [place] Inhaler [Incruse Ellipta Inhaler] 1 puff IH DAILY 10/31/19 Wheat Dextrin [Benefiber] 15 ml PO DAILY 10/31/19 Amox/Clavulanate Tablet [Augmentin Tablet] 875 mg PO Q12 tab 11/09/19 Benzonatate [Tessalon Perle] 100 mg PO Q8H PRN PRN #12 cap 11/09/19 Prednisone 10 mg PO UD #30 tab 11/09/19 Following Prescrptions Were Given to Patient: Prednisone 10 mg PO UD #30 tab Transmission Status: Received by [facility] Benzonatate [Tessalon Perle] 100 mg PO Q8H PRN PRN #12 cap PRN Reason: Cough Transmission Status: Received by [facility] Primary Care Physician: Boris Vance MD [Primary Care Provider] - Please follow up with your Primary Care Physician in: 1-2 weeks Please Follow Up With: Koby Ramirez MD When: 1-2 weeks( soonest available) Please Follow Up With: Boris Vance MD Disposition: Home Minutes spent on discharge:: 35 Patient Condition:: Stable Medical Necessity - Tobacco Use Smoking Status: Former smoker Meaningful Use Info Meaningful Use Diagnoses (Choose all that apply): None applicable <Lauro Noguera - Last Filed: 11/10/19 11:55> Discharge Date and Diagnosis - Primary Discharge Diagnosis Active and Suspected Problems COPD exacerbation (Acute) Elevated troponin (Acute) Anxiety attack (Acute) - Secondary Discharge Diagnosis Chronic Problems COPD (chronic obstructive pulmonary disease) (Chronic) Hyperlipidemia (Chronic) Diabetes mellitus type 2 in obese (Chronic) HTN (hypertension) (Chronic) Schizophrenia (Chronic) Hospital Course and Treatment Summary of Care Provided: This patient was seen in conjunction with Hemanth Carrizales PA-C . I have independently interviewed and examined the patient and reviewed pertinent historical, laboratory, and other data. Please refer to Hemanth Carrizales PA-C note for details of this patient's presentation, findings, and recommendations. I have reviewed Hemanth Carrizales PA-C note and concur with documented findings. In brief, patient is a 53-year-old lady admitted with progressive shortness of breath managed as a case of COPD exacerbation Hospital course; as documented above - Physical Exam Vitals/I&O's: Vital Signs Temp Pulse Resp BP Pulse Ox 97.9 F 110 H 22 H 116/60 95 11/10/19 08:11 11/10/19 11:24 11/10/19 11:24 11/10/19 08:11 11/10/19 11:24 Oxygen Flow Rate (L/min) 3 Oxygen Delivery Method Nasal Cannula Weight: 89.6 kg Body Mass Index (BMI) 37.3 Intake and Output for Last 24 Hours 11/08/19 11/09/19 11/10/19 23:59 23:59 23:59 Intake Total 1500 / 1500 1360 / 1460 150 / 150 Output Total 2150 / 2150 850 / 1050 200 / 200 Balance -650 / -650 510 / 410 -50 / -50 Microbiology Past 72 Hours 11/07/19 10:00 Urine, Clean Catch Urine Culture - Final Culture exhibits no growth. 11/07/19 00:55 Blood Culture (Wb) - Anticubital Left Blood Culture - Preliminary No growth in 48 hours. 11/07/19 00:35 Blood Culture (Wb) - Anticubital Right Blood Culture - Preliminary No growth in 48 hours. Laboratory Results 11/09/19 16:15: POC Glucose 232 H 11/09/19 22:15: POC Glucose 207 H 11/10/19 06:42: POC Glucose 124 H 11/10/19 10:57: POC Glucose 131 H Current Medications Acetaminophen (Tylenol) 650 mg PO Q6H PRN PRN PRN Reason: Pain Score 1-3/Temp > 100.7 F Last Admin: 11/10/19 05:22 Dose: 650 mg Documented by: Albuterol Sulfate (Ventolin Aerosols) 2.5 mg INHALATION Q2H PRN PRN PRN Reason: SHORTNESS OF BREATH Last Admin: 11/08/19 09:12 Dose: 2.5 mg Documented by: Albuterol/Ipratropium (Duoneb) 3 ml INHALATION Q4HWA.RT [facility] Last Admin: 11/10/19 11:24 Dose: 3 ml Documented by: Aspirin (Ecotrin) 325 mg PO DAILY [facility] Last Admin: 11/10/19 10:41 Dose: 325 mg Documented by: Benzonatate (Tessalon Perle) 100 mg PO Q8H PRN PRN PRN Reason: COUGH Last Admin: 11/10/19 06:41 Dose: 100 mg Documented by: Clonazepam (Klonopin) 0.5 mg PO BREAKFAST [facility] Last Admin: 11/10/19 08:31 Dose: 0.5 mg Documented by: Clonazepam (Klonopin) 1 mg PO 1200 [facility] Last Admin: 11/10/19 11:36 Dose: 1 mg Documented by: Clonazepam (Klonopin) 0.5 mg PO QHS [facility] Last Admin: 11/09/19 22:08 Dose: 0.5 mg Documented by: Clozapine (Clozaril) 100 mg PO LUNCH [facility] Last Admin: 11/10/19 11:37 Dose: 100 mg Documented by: Clozapine (Clozaril) 200 mg PO DINNER [facility] Last Admin: 11/09/19 16:16 Dose: 200 mg Documented by: Clozapine (Clozaril) 300 mg PO QHS [facility] Last Admin: 11/09/19 22:25 Dose: 300 mg Documented by: Dextrose (D50w Syringe) 0 gm IV X1 PRN; Protocol PRN Reason: Hypoglycemia Enoxaparin Sodium (Lovenox) 40 mg SC DAILY [facility] Last Admin: 11/10/19 10:45 Dose: 40 mg Documented by: Ferrous Gluconate (Ferrous Gluconate) 324 mg PO 1200,1700 [facility] Last Admin: 11/10/19 11:37 Dose: 324 mg Documented by: Furosemide (Lasix) 20 mg PO DAILY [facility] Last Admin: 11/10/19 10:44 Dose: 20 mg Documented by: Glipizide (Glucotrol) 5 mg PO BIDAC [facility] Last Admin: 11/10/19 08:33 Dose: 5 mg Documented by: Glucagon () 1 mg IM .X1 PRN PRN Reason: Hypoglycemia Guaifenesin (Mucinex) 1,200 mg PO BID [facility] Last Admin: 11/10/19 10:45 Dose: 1,200 mg Documented by: Sodium Chloride () 250 mls @ 15 mls/hr IV .[id number] PRN PRN Reason: Saline Flush Insulin Glargine (Lantus (Bkc)) 42 units SC 1100 [facility] Last Admin: 11/10/19 11:35 Dose: 42 u Documented by: Insulin Human Lispro (Humalog Kwikpen (Bk)) 0 unit SC ACHS [facility]; Protocol Last Admin: 11/10/19 11:33 Dose: Not Given Documented by: Labetalol HCl (Trandate) 10 mg IV Q4H PRN PRN PRN Reason: SBP > 160 Lubiprostone (Amitiza) 24 mcg PO BID [facility] Last Admin: 11/10/19 10:43 Dose: 24 mcg Documented by: Magnesium Hydroxide (Milk Of Magnesia) 30 ml PO DAILY PRN PRN PRN Reason: Constipation Ondansetron HCl (Zofran) 4 mg IV Q8H PRN PRN PRN Reason: NAUSEA/VOMITING Oxymetazoline HCl (Afrin (Bkc)) 2 spray NS BID PRN PRN PRN Reason: CONGESTION Pantoprazole Sodium (Protonix) 20 mg PO DAILY [facility] Last Admin: 11/10/19 10:45 Dose: 20 mg Documented by: Potassium [facility]) [facility] Last Admin: 11/10/19 08:30 Dose: 20 meq Documented by: Pramipexole Dihydrochloride (Mirapex) 0.5 mg PO QHS [facility] Last Admin: 11/09/19 22:09 Dose: 0.5 mg Documented by: Pravastatin Sodium (Pravachol) 20 mg PO QHS [facility] Last Admin: 11/09/19 22:09 Dose: 20 mg Documented by: Prednisone () 40 mg PO DAILY@0800 [facility] Last Admin: 11/10/19 08:31 Dose: 40 mg Documented by: Risperidone (Risperdal) 2 mg PO QHS [facility] Last Admin: 11/09/19 22:27 Dose: 2 mg Documented by: Senna/Docusate Sodium (Senokot-S, Celia-Colace) 2 tablet PO BID PRN PRN PRN Reason: Constipation Last Admin: 11/09/19 22:09 Dose: 2 tablet Documented by: Sodium Chloride () 10 - 40 ml IV UD PRN PRN Reason: SALINE FLUSH Last Admin: 11/10/19 05:22 Dose: 10 ml Documented by: Venlafaxine HCl (Effexor Xr) 37.5 mg PO DAILY [facility] Last Admin: 11/10/19 10:43 Dose: 37.5 mg Documented by: Code Visit Inpatient E&M: [id number] [facility]
--- NOTE | 2019-11-09 14:36 | PN_ITS ---
<Hemanth Carrizales - Last Filed: 11/09/19 14:36> Patient Problems: Active and Suspected Problems COPD exacerbation (Acute) Elevated troponin (Acute) Anxiety attack (Acute) Reason for Visit: sob Subjective: sob improved. stable on baseline o2. No fever/ chills. Non productive cough. No LE edema. No CP. No N/V/D. Vitals/I&O's: Vital Signs Temp Pulse Resp BP Pulse Ox 97.9 F 102 H 18 136/72 H 96 11/09/19 09:28 11/09/19 09:28 11/09/19 09:28 11/09/19 09:28 11/09/19 09:28 Oxygen Flow Rate (L/min) 3 Oxygen Delivery Method Bi-pap Weight: 197 lb 8.547 oz Body Mass Index (BMI) 37.3 Intake and Output for Last 24 Hours 11/07/19 11/08/19 11/09/19 23:59 23:59 23:59 Intake Total 990 / 1410 1500 / 1500 560 / 560 Output Total 600 / 1100 2150 / 2150 400 / 400 Balance 390 / 310 -650 / -650 160 / 160 General: Alert, Oriented x3, Cooperative HEENT: Atraumatic, PERRLA, EOMI, Normocephalic Neck: Supple, No JVD, Negative Carotid Bruits Lungs: Normal air movement, Wheezes - faint expiratory, improved Cardiovascular: Regular rate, No murmurs Abdomen: Bowel Sounds Present, Soft, Non Tender Extremities: No edema, Capillary Refill Less than 3 Seconds Skin: No rashes, No breakdown Musculoskeletal: No Tenderness to Palpation of Joints or Extremities Neurological: Cranial nerves II-XII grossly intact Psych/Mental Status: Appropriate, Flat Affect Microbiology Past 72 Hours 11/07/19 10:00 Urine, Clean Catch Urine Culture - Final Culture exhibits no growth. 11/07/19 00:55 Blood Culture (Wb) - Anticubital Left Blood Culture - Preliminary No growth in 48 hours. 11/07/19 00:35 Blood Culture (Wb) - Anticubital Right Blood Culture - Preliminary No growth in 48 hours. Laboratory Results 11/08/19 16:19: POC Glucose 318 H 11/08/19 21:46: POC Glucose 300 H 11/09/19 04:55: WBC 16.8 H, RBC 4.26, Hgb 12.4, Hct 39.1, MCV 91.8, MCH 29.1, MCHC 31.7 L, RDW Std Deviation 46.7 H, RDW Coeff of Ytesha 13.8, Plt Count 250, MPV 9.4, Immature Gran % (Auto) 2.500 H, Neut % (Auto) 80.3 H, Lymph % (Auto) 12.6 L , Daniels % (Auto) 4.4, Eos % (Auto) 0.0, Baso % (Auto) 0.2, Absolute Neuts (auto) 13.5 H, Absolute Lymphs (auto) 2.12, Nucleated RBC % 0 11/09/19 04:55: Sodium 132 L, Potassium 4.5, Chloride 96 L, Carbon Dioxide 34.0 H, Anion Gap 2 L, BUN 14, Creatinine 0.61, Estim Creat Clear Calc 78.63, Est GFR (MDRD) Af Amer 130, Est GFR (MDRD) Non-Af 108, BUN/Creatinine Ratio 22.9 H, Glucose 258 H, Calcium 9.2 11/09/19 06:39: POC Glucose 246 H 11/09/19 11:17: POC Glucose 291 H Current Medications Acetaminophen (Tylenol) 650 mg PO Q6H PRN PRN PRN Reason: Pain Score 1-3/Temp > 100.7 F Last Admin: 11/08/19 13:03 Dose: 650 mg Documented by: Albuterol Sulfate (Ventolin Aerosols) 2.5 mg INHALATION Q2H PRN PRN PRN Reason: SHORTNESS OF BREATH Last Admin: 11/08/19 09:12 Dose: 2.5 mg Documented by: Albuterol/Ipratropium (Duoneb) 3 ml INHALATION Q4HWA.RT [facility] Last Admin: 11/09/19 11:52 Dose: Not Given Documented by: Amoxicillin/Clavulanate Potassium (Augmentin Tablet) 875 mg PO Q12 [facility] Last Admin: 11/09/19 08:21 Dose: 875 mg Documented by: Aspirin (Ecotrin) 325 mg PO DAILY [facility] Last Admin: 11/09/19 08:21 Dose: 325 mg Documented by: Benzonatate (Tessalon Perle) 100 mg PO Q8H PRN PRN PRN Reason: COUGH Last Admin: 11/09/19 08:25 Dose: 100 mg Documented by: Clonazepam (Klonopin) 0.5 mg PO BREAKFAST [facility] Last Admin: 11/09/19 08:28 Dose: 0.5 mg Documented by: Clonazepam (Klonopin) 1 mg PO 1200 [facility] Last Admin: 11/09/19 11:14 Dose: 1 mg Documented by: Clonazepam (Klonopin) 0.5 mg PO QHS [facility] Last Admin: 11/08/19 21:51 Dose: 0.5 mg Documented by: Clozapine (Clozaril) 100 mg PO LUNCH [facility] Last Admin: 11/09/19 11:15 Dose: 100 mg Documented by: Clozapine (Clozaril) 200 mg PO DINNER [facility] Last Admin: 11/08/19 16:23 Dose: 200 mg Documented by: Clozapine (Clozaril) 300 mg PO QHS [facility] Last Admin: 11/08/19 21:50 Dose: 300 mg Documented by: Dextrose (D50w Syringe) 0 gm IV X1 PRN; Protocol PRN Reason: Hypoglycemia Enoxaparin Sodium (Lovenox) 40 mg SC DAILY [facility] Last Admin: 11/09/19 08:25 Dose: 40 mg Documented by: Ferrous Gluconate (Ferrous Gluconate) 324 mg PO 1200,1700 [facility] Last Admin: 11/09/19 11:15 Dose: 324 mg Documented by: Furosemide (Lasix) 20 mg PO DAILY [facility] Last Admin: 11/09/19 08:24 Dose: 20 mg Documented by: Glipizide (Glucotrol) 5 mg PO BIDAC [facility] Last Admin: 11/09/19 06:41 Dose: 5 mg Documented by: Glucagon () 1 mg IM .X1 PRN PRN Reason: Hypoglycemia Guaifenesin (Mucinex) 1,200 mg PO BID [facility] Last Admin: 11/09/19 08:25 Dose: 1,200 mg Documented by: Sodium Chloride () 250 mls @ 15 mls/hr IV .[id number] PRN PRN Reason: Saline Flush Insulin Glargine (Lantus (Bkc)) 42 units SC 1100 [facility] Last Admin: 11/09/19 11:17 Dose: 42 u Documented by: Insulin Human Lispro (Humalog Kwikpen (Bkc)) 0 unit SC ACHS [facility]; Protocol Last Admin: 11/09/19 11:18 Dose: 6 unit Documented by: Labetalol HCl (Trandate) 10 mg IV Q4H PRN PRN PRN Reason: SBP > 160 Lubiprostone (Amitiza) 24 mcg PO BID [facility] Last Admin: 11/09/19 08:24 Dose: 24 mcg Documented by: Magnesium Hydroxide (Milk Of Magnesia) 30 ml PO DAILY PRN PRN PRN Reason: Constipation Methylprednisolone (Solu-Medrol) 40 mg IV Q8 [facility] Last Admin: 11/09/19 13:37 Dose: Not Given Documented by: Ondansetron HCl (Zofran) 4 mg IV Q8H PRN PRN PRN Reason: NAUSEA/VOMITING Oxymetazoline HCl (Afrin (Bkc)) 2 spray NS BID PRN PRN PRN Reason: CONGESTION Pantoprazole Sodium (Protonix) 20 mg PO DAILY [facility] Last Admin: 11/09/19 08:25 Dose: 20 mg Documented by: Potassium [facility] ([facility]) [facility] Last Admin: 11/09/19 08:20 Dose: 20 meq Documented by: Pramipexole Dihydrochloride (Mirapex) 0.5 mg PO QHS [facility] Last Admin: 11/08/19 21:51 Dose: 0.5 mg Documented by: Pravastatin Sodium (Pravachol) 20 mg PO QHS [facility] Last Admin: 11/08/19 21:50 Dose: 20 mg Documented by: Risperidone (Risperdal) 2 mg PO QHS [facility] Last Admin: 11/08/19 21:51 Dose: 2 mg Documented by: Senna/Docusate Sodium (Senokot-S, Celia-Colace) 2 tablet PO BID PRN PRN PRN Reason: Constipation Last Admin: 11/09/19 08:25 Dose: 2 tablet Documented by: Sodium Chloride () 10 - 40 ml IV UD PRN PRN Reason: SALINE FLUSH Last Admin: 11/09/19 08:25 Dose: 10 ml Documented by: Venlafaxine HCl (Effexor Xr) 37.5 mg PO DAILY [facility] Last Admin: 11/09/19 08:24 Dose: 37.5 mg Documented by: Medical Necessity - Tobacco Use Smoking Status: Former smoker Assessment/Plan All Active Problems COPD exacerbation (Acute) Elevated troponin (Acute) Anxiety attack (Acute) 1. Acute COPD exacerbation, chronic hypoxic resp failure - resolved. prednisone taper, aerosols, IS. 2. Anxiety attack - resolved. continue klonopin 3. Elevated trop - stable. EKG neg for acute ischemic process. Stachy on monitor. 4. Acute sepsis 2/2 residual pna - plan to complete prior augmentin prescription 5. Dmt2 with obesity - continue glipizide, lantus, SSI. 6. Schizophrenia - continue home meds. flat affect. 7. LIDA - continue bipap qhs 8. IBS - amizita 9. HLD - statin DVT ppx: lovenox DC planning: The nursing home director was not aware that she was on o2 at the nursing home which is apparently against their policy. They refuse to take her back. The plan is now for placement in SNF. This patient was seen by Hemanth Carrizales PA-C under the supervision of Doctor Chuckie <Lauro Noguera - Last Filed: 11/09/19 16:03> Vitals/I&O's: Vital Signs Temp Pulse Resp BP Pulse Ox 97.9 F 103 H 23 H 136/72 H 96 11/09/19 09:28 11/09/19 15:23 11/09/19 15:23 11/09/19 09:28 11/09/19 09:28 Oxygen Flow Rate (L/min) 3 Oxygen Delivery Method Bi-pap Weight: 89.6 kg Body Mass Index (BMI) 37.3 Intake and Output for Last 24 Hours 11/07/19 11/08/19 11/09/19 23:59 23:59 23:59 Intake Total 990 / 1410 1500 / 1500 560 / 560 Output Total 600 / 1100 2150 / 2150 400 / 400 Balance 390 / 310 -650 / -650 160 / 160 Microbiology Past 72 Hours 11/07/19 10:00 Urine, Clean Catch Urine Culture - Final Culture exhibits no growth. 11/07/19 00:55 Blood Culture (Wb) - Anticubital Left Blood Culture - Preliminary No growth in 48 hours. 11/07/19 00:35 Blood Culture (Wb) - Anticubital Right Blood Culture - Preliminary No growth in 48 hours. Laboratory Results 11/08/19 16:19: POC Glucose 318 H 11/08/19 21:46: POC Glucose 300 H 11/09/19 04:55: WBC 16.8 H, RBC 4.26, Hgb 12.4, Hct 39.1, MCV 91.8, MCH 29.1, MCHC 31.7 L, RDW Std Deviation 46.7 H, RDW Coeff of Tyesha 13.8, Plt Count 250, MPV 9.4, Immature Gran % (Auto) 2.500 H, Neut % (Auto) 80.3 H, Lymph % (Auto) 12.6 L , Daniels % (Auto) 4.4, Eos % (Auto) 0.0, Baso % (Auto) 0.2, Absolute Neuts (auto) 13.5 H, Absolute Lymphs (auto) 2.12, Nucleated RBC % 0 11/09/19 04:55: Sodium 132 L, Potassium 4.5, Chloride 96 L, Carbon Dioxide 34.0 H, Anion Gap 2 L, BUN 14, Creatinine 0.61, Estim Creat Clear Calc 78.63, Est GFR (MDRD) Af Amer 130, Est GFR (MDRD) Non-Af 108, BUN/Creatinine Ratio 22.9 H, Glucose 258 H, Calcium 9.2 11/09/19 06:39: POC Glucose 246 H 11/09/19 11:17: POC Glucose 291 H Current Medications Acetaminophen (Tylenol) 650 mg PO Q6H PRN PRN PRN Reason: Pain Score 1-3/Temp > 100.7 F Last Admin: 11/08/19 13:03 Dose: 650 mg Documented by: Albuterol Sulfate (Ventolin Aerosols) 2.5 mg INHALATION Q2H PRN PRN PRN Reason: SHORTNESS OF BREATH Last Admin: 11/08/19 09:12 Dose: 2.5 mg Documented by: Albuterol/Ipratropium (Duoneb) 3 ml INHALATION Q4HWA.RT [facility] Last Admin: 11/09/19 15:23 Dose: 3 ml Documented by: Amoxicillin/Clavulanate Potassium (Augmentin Tablet) 875 mg PO Q12 [facility] Stop: 11/09/19 22:00 Last Admin: 11/09/19 08:21 Dose: 875 mg Documented by: Aspirin (Ecotrin) 325 mg PO DAILY [facility] Last Admin: 11/09/19 08:21 Dose: 325 mg Documented by: Benzonatate (Tessalon Perle) 100 mg PO Q8H PRN PRN PRN Reason: COUGH Last Admin: 11/09/19 08:25 Dose: 100 mg Documented by: Clonazepam (Klonopin) 0.5 mg PO BREAKFAST [facility] Last Admin: 11/09/19 08:28 Dose: 0.5 mg Documented by: Clonazepam (Klonopin) 1 mg PO 1200 [facility] Last Admin: 11/09/19 11:14 Dose: 1 mg Documented by: Clonazepam (Klonopin) 0.5 mg PO QHS [facility] Last Admin: 11/08/19 21:51 Dose: 0.5 mg Documented by: Clozapine (Clozaril) 100 mg PO LUNCH [facility] Last Admin: 11/09/19 11:15 Dose: 100 mg Documented by: Clozapine (Clozaril) 200 mg PO DINNER [facility] Last Admin: 11/08/19 16:23 Dose: 200 mg Documented by: Clozapine (Clozaril) 300 mg PO QHS [facility] Last Admin: 11/08/19 21:50 Dose: 300 mg Documented by: Dextrose (D50w Syringe) 0 gm IV X1 PRN; Protocol PRN Reason: Hypoglycemia Enoxaparin Sodium (Lovenox) 40 mg SC DAILY [facility] Last Admin: 11/09/19 08:25 Dose: 40 mg Documented by: Ferrous Gluconate (Ferrous Gluconate) 324 mg PO 1200,1700 [facility] Last Admin: 11/09/19 11:15 Dose: 324 mg Documented by: Furosemide (Lasix) 20 mg PO DAILY [facility] Last Admin: 11/09/19 08:24 Dose: 20 mg Documented by: Glipizide (Glucotrol) 5 mg PO BIDAC [facility] Last Admin: 11/09/19 06:41 Dose: 5 mg Documented by: Glucagon () 1 mg IM .X1 PRN PRN Reason: Hypoglycemia Guaifenesin (Mucinex) 1,200 mg PO BID [facility] Last Admin: 11/09/19 08:25 Dose: 1,200 mg Documented by: Sodium Chloride () 250 mls @ 15 mls/hr IV .[id number] PRN PRN Reason: Saline Flush Insulin Glargine (Lantus (Bkc)) 42 units SC 1100 [facility] Last Admin: 11/09/19 11:17 Dose: 42 u Documented by: Insulin Human Lispro (Humalog Kwikpen (Bkc)) 0 unit SC ACHS [facility]; Protocol Last Admin: 11/09/19 11:18 Dose: 6 unit Documented by: Labetalol HCl (Trandate) 10 mg IV Q4H PRN PRN PRN Reason: SBP > 160 Lubiprostone (Amitiza) 24 mcg PO BID [facility] Last Admin: 11/09/19 08:24 Dose: 24 mcg Documented by: Magnesium Hydroxide (Milk Of Magnesia) 30 ml PO DAILY PRN PRN PRN Reason: Constipation Ondansetron HCl (Zofran) 4 mg IV Q8H PRN PRN PRN Reason: NAUSEA/VOMITING Oxymetazoline HCl (Afrin (Bkc)) 2 spray NS BID PRN PRN PRN Reason: CONGESTION Pantoprazole Sodium (Protonix) 20 mg PO DAILY [facility] Last Admin: 11/09/19 08:25 Dose: 20 mg Documented by: Potassium Chlor[facility] ([facility]Dur) [facility] Last Admin: 11/09/19 08:20 Dose: 20 meq Documented by: Pramipexole Dihydrochloride (Mirapex) 0.5 mg PO QHS [facility] Last Admin: 11/08/19 21:51 Dose: 0.5 mg Documented by: Pravastatin Sodium (Pravachol) 20 mg PO QHS [facility] Last Admin: 11/08/19 21:50 Dose: 20 mg Documented by: Prednisone () 40 mg PO DAILY@0800 [facility] Risperidone (Risperdal) 2 mg PO QHS [facility] Last Admin: 11/08/19 21:51 Dose: 2 mg Documented by: Senna/Docusate Sodium (Senokot-S, Celia-Colace) 2 tablet PO BID PRN PRN PRN Reason: Constipation Last Admin: 11/09/19 08:25 Dose: 2 tablet Documented by: Sodium Chloride () 10 - 40 ml IV UD PRN PRN Reason: SALINE FLUSH Last Admin: 11/09/19 08:25 Dose: 10 ml Documented by: Venlafaxine HCl (Effexor Xr) 37.5 mg PO DAILY [facility] Last Admin: 11/09/19 08:24 Dose: 37.5 mg Documented by: STROKE Vital Signs/Narrative: Vital Signs Pulse Resp 11/09/19 15:23 103 H 23 H Assessment/Plan This patient was seen in conjunction with Hemanth Christianson I have independently interviewed and examined the patient and reviewed pertinent historical, laboratory, and other data. Please refer to Hemanth mancilla for details of this patient's presentation, findings, and recommendations. I have reviewed Hemanth Carrizales PA-C note and concur with documented findings. In brief, patient is a 53-year-old lady who presented with progressive shortness of breath and assessment of COPD with acute exacerbation made. Admitted to a monitored bed where patient is being managed. Patient was found to have elevated troponin attributed to demand ischemia 11/09/2019; plan is for patient to be transferred to a facility capable of handling patient needing continuous oxygen. Currently at the nursing home and apparently they will accept patient who on oxygen Physical Examination: GENERAL: cooperative HEENT: Atraumatic; EYES; Anicteric, Normal Conjunctiva NECK; supple, normal thyroid, RESPIRATORY: Diminished to auscultation CARDIOVASCULAR: Regular S1 S2, NEURO: Awake; no lateralizing signs. SKIN: No Rash PSYCH; Flat affect Assessment: 1. Acute respiratory insufficiency secondary to COPD with acute exacerbation 2. Elevated troponin secondary from demand ischemia 3. Anxiety attack 4. Chronic diastolic congestive heart failure stable 5. 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 Obstructive sleep apnea patient is on CPAP at night 7. Schizophrenia currently stable 8. Dyslipidemia-patient is on statin therapy, continued at home dose 9. Obesity with BMI of 37 10. DVT prophylaxis SC Lovenox Recommendations: 1. I have discussed the results of my overview and impressions with the patient 2. Options for management were reviewed Code Visit Inpatient E&M: 75629 Subs Hosp L2
--- NOTE | 2019-11-09 15:06 | CASEMGMT ---
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 JONNY asked if they had patient's portable O2. JONNY was told patient cannot have O2 in the intermediate. JONNY explained that patient already has O2 at the intermediate. JONNY explained when she was here last week we verified she has O2 from [facility] and the order is for 3L continuous. JONNY then spoke with the director of the group homes and she said she did not know patient had oxygen at the intermediate and this is a problem as they are not allowed to have oxygen at the group homes due to licensing. Therefore patient has to go to a care home just because she needs oxygen. JONNY spoke with patient letting her know. She said she has been to [facility] in the past. JONNY called patient's guardian and let her know. She said if patient has been to [facility] before then she would prefer she return there. She thanked JONNY for calling her. JONNY called [facility] and made referral. JONNY also faxed referral. JONYN notified RN. Patient did not have therapy ordered and this will be needed for insurance. JONNY spoke with therapy and they will see patient. Jannette [employer]
[2019-11-09 16:26] LABS: Bedside Glucose 232 mg/dL (70-110)
--- NOTE | 2019-11-09 18:21 | NURSING ---
report called to Coleen TYSON in [employer] [facility]
[2019-11-09] MEDS: Acetaminophen 325 MG Tablet 650 MG PO (22:09)
[2019-11-09] MEDS: Pramipexole Di-HCl 0.5 MG Tablet PO (22:09)
[2019-11-09] MEDS: Pravastatin 20 MG Tablet PO (22:09)
[2019-11-09 22:25] LABS: Bedside Glucose 207 mg/dL (70-110)
[2019-11-09] MEDS: RisperiDONE 2 MG Tablet PO (22:27)
[2019-11-10] VITALS (11 sets, daily range): BP systolic 108–129; BP diastolic 55–78; PULSE 92–110; RESP 12–22; TEMP 36.3–36.8; O2SAT 92–97
[2019-11-10] MEDS: Ipratropium/Albuterol Sulfate 3 ML AMPUL.NEB INHALATION ×5 (02:30→19:20)
[2019-11-10] MEDS: 0.9% Saline Lock 10 ML Syringe IV (05:22)
[2019-11-10] MEDS: Acetaminophen 325 MG Tablet 650 MG PO (05:22)
[2019-11-10] MEDS: Benzonatate 100 MG Capsule PO (06:41)
[2019-11-10 06:50] LABS: Bedside Glucose 124 mg/dL (70-110)
--- NOTE | 2019-11-10 07:12 | PN_ITS ---
Patient Problems: Active and Suspected Problems COPD exacerbation (Acute) Elevated troponin (Acute) Anxiety attack (Acute) Reason for Visit: COPD exacerbation Subjective: Plan is for patient to be transferred to residential facility pending insurance precertification Objective: Physical Examination: GENERAL: cooperative HEENT: Atraumatic; EYES; Anicteric, Normal Conjunctiva NECK; supple, normal thyroid, RESPIRATORY: Diminished to auscultation CARDIOVASCULAR: Regular S1 S2, NEURO: Awake; no lateralizing signs. SKIN: No Rash PSYCH; Flat affect Vitals/I&O's: Vital Signs Temp Pulse Resp BP Pulse Ox 97.3 F L 95 18 108/55 L 97 11/10/19 05:25 11/10/19 05:25 11/10/19 05:25 11/10/19 05:25 11/10/19 05:25 Oxygen Flow Rate (L/min) 3 Oxygen Delivery Method Bi-pap Weight: 89.6 kg Body Mass Index (BMI) 37.3 Intake and Output for Last 24 Hours 11/08/19 11/09/19 11/10/19 23:59 23:59 23:59 Intake Total 1500 / 1500 1360 / 1460 150 / 150 Output Total 2150 / 2150 850 / 1050 200 / 200 Balance -650 / -650 510 / 410 -50 / -50 Microbiology Past 72 Hours 11/07/19 10:00 Urine, Clean Catch Urine Culture - Final Culture exhibits no growth. 11/07/19 00:55 Blood Culture (Wb) - Anticubital Left Blood Culture - Preliminary No growth in 48 hours. 11/07/19 00:35 Blood Culture (Wb) - Anticubital Right Blood Culture - Preliminary No growth in 48 hours. Laboratory Results 11/09/19 11:17: POC Glucose 291 H 11/09/19 16:15: POC Glucose 232 H 11/09/19 22:15: POC Glucose 207 H 11/10/19 06:42: POC Glucose 124 H Current Medications Acetaminophen (Tylenol) 650 mg PO Q6H PRN PRN PRN Reason: Pain Score 1-3/Temp > 100.7 F Last Admin: 11/10/19 05:22 Dose: 650 mg Documented by: Albuterol Sulfate (Ventolin Aerosols) 2.5 mg INHALATION Q2H PRN PRN PRN Reason: SHORTNESS OF BREATH Last Admin: 11/08/19 09:12 Dose: 2.5 mg Documented by: Albuterol/Ipratropium (Duoneb) 3 ml INHALATION Q4HWA.RT [facility] Last Admin: 11/10/19 02:30 Dose: 3 ml Documented by: Aspirin (Ecotrin) 325 mg PO DAILY [facility] Last Admin: 11/09/19 08:21 Dose: 325 mg Documented by: Benzonatate (Tessalon Perle) 100 mg PO Q8H PRN PRN PRN Reason: COUGH Last Admin: 11/10/19 06:41 Dose: 100 mg Documented by: Clonazepam (Klonopin) 0.5 mg PO BREAKFAST [facility] Last Admin: 11/09/19 08:28 Dose: 0.5 mg Documented by: Clonazepam (Klonopin) 1 mg PO 1200 [facility] Last Admin: 11/09/19 11:14 Dose: 1 mg Documented by: Clonazepam (Klonopin) 0.5 mg PO QHS [facility] Last Admin: 11/09/19 22:08 Dose: 0.5 mg Documented by: Clozapine (Clozaril) 100 mg PO LUNCH [facility] Last Admin: 11/09/19 11:15 Dose: 100 mg Documented by: Clozapine (Clozaril) 200 mg PO DINNER [facility] Last Admin: 11/09/19 16:16 Dose: 200 mg Documented by: Clozapine (Clozaril) 300 mg PO QHS [facility] Last Admin: 11/09/19 22:25 Dose: 300 mg Documented by: Dextrose (D50w Syringe) 0 gm IV X1 PRN; Protocol PRN Reason: Hypoglycemia Enoxaparin Sodium (Lovenox) 40 mg SC DAILY [facility] Last Admin: 11/09/19 08:25 Dose: 40 mg Documented by: Ferrous Gluconate (Ferrous Gluconate) 324 mg PO 1200,1700 [facility] Last Admin: 11/09/19 16:17 Dose: 324 mg Documented by: Furosemide (Lasix) 20 mg PO DAILY [facility] Last Admin: 11/09/19 08:24 Dose: 20 mg Documented by: Glipizide (Glucotrol) 5 mg PO BIDAC [facility] Last Admin: 11/09/19 16:16 Dose: 5 mg Documented by: Glucagon () 1 mg IM .X1 PRN PRN Reason: Hypoglycemia Guaifenesin (Mucinex) 1,200 mg PO BID [facility] Last Admin: 11/09/19 22:09 Dose: 1,200 mg Documented by: Sodium Chloride () 250 mls @ 15 mls/hr IV .[id number] PRN PRN Reason: Saline Flush Insulin Glargine (Lantus ([facility])) 42 units SC 1100 [facility] Last Admin: 11/09/19 11:17 Dose: 42 u Documented by: Insulin Human Lispro (Humalog Kwikpen ([facility])) 0 unit SC ACHS [facility]; Protocol Last Admin: 11/10/19 06:43 Dose: Not Given Documented by: Labetalol HCl (Trandate) 10 mg IV Q4H PRN PRN PRN Reason: SBP > 160 Lubiprostone (Amitiza) 24 mcg PO BID [facility] Last Admin: 11/09/19 22:26 Dose: 24 mcg Documented by: Magnesium Hydroxide (Milk Of Magnesia) 30 ml PO DAILY PRN PRN PRN Reason: Constipation Ondansetron HCl (Zofran) 4 mg IV Q8H PRN PRN PRN Reason: NAUSEA/VOMITING Oxymetazoline HCl (Afrin ([facility])) 2 spray NS BID PRN PRN PRN Reason: CONGESTION Pantoprazole Sodium (Protonix) 20 mg PO DAILY [facility] Last Admin: 11/09/19 08:25 Dose: 20 mg Documented by: Potassium [facility] Last Admin: 11/09/19 08:20 Dose: 20 meq Documented by: Pramipexole Dihydrochloride (Mirapex) 0.5 mg PO QHS [facility] Last Admin: 11/09/19 22:09 Dose: 0.5 mg Documented by: Pravastatin Sodium (Pravachol) 20 mg PO QHS [facility] Last Admin: 11/09/19 22:09 Dose: 20 mg Documented by: Prednisone () 40 mg PO DAILY@0800 [facility] Risperidone (Risperdal) 2 mg PO QHS [facility] Last Admin: 11/09/19 22:27 Dose: 2 mg Documented by: Senna/Docusate Sodium (Senokot-S, Celia-Colace) 2 tablet PO BID PRN PRN PRN Reason: Constipation Last Admin: 11/09/19 22:09 Dose: 2 tablet Documented by: Sodium Chloride () 10 - 40 ml IV UD PRN PRN Reason: SALINE FLUSH Last Admin: 11/10/19 05:22 Dose: 10 ml Documented by: Venlafaxine HCl (Effexor Xr) 37.5 mg PO DAILY [facility] Last Admin: 11/09/19 08:24 Dose: 37.5 mg Documented by: STROKE Vital Signs/Narrative: Vital Signs Temp Pulse Resp BP Pulse Ox 11/10/19 05:25 97.3 F L 95 18 108/55 L 97 Medical Necessity - Tobacco Use Smoking Status: Former smoker Assessment/Plan All Active Problems COPD exacerbation (Acute) Elevated troponin (Acute) Anxiety attack (Acute) In brief, patient is a 53-year-old lady who presented with progressive shortness of breath and assessment of COPD with acute exacerbation made. Admitted to a monitored bed where patient is being managed. Patient was found to have elevated troponin attributed to demand ischemia 1. Acute respiratory insufficiency secondary to COPD with acute exacerbation ?Managed with aerosol treatment and steroid as well as antibiotics in addition to supplemental oxygen. plan is for patient to be transferred to a facility capable of handling patient needing continuous oxygen. Currently at the skilled nursing and apparently they will accept patient who on oxygen 2. Elevated troponin secondary from demand ischemia ?Medical management only 3. Anxiety attack ? is on Klonopin 4. Chronic diastolic congestive heart failure - stable 5. Diabetes mellitus type 2 with complications including hyperglycemia; - Accu-Cheks before meals and at bedtime with sliding scale coverage addition to scheduled long-acting insulin 6. Obstructive sleep apnea - patient is on CPAP at night 7. Schizophrenia - currently stable did continue patient psychotropic medications 8. Dyslipidemia -patient is on statin therapy, continued at home dose 9. Obesity with BMI of 37 10. DVT prophylaxis SC Lovenox Active Medications Acetaminophen (Tylenol) 650 mg PO Q6H PRN PRN PRN Reason: Pain Score 1-3/Temp > 100.7 F Last Admin: 11/10/19 05:22 Dose: 650 mg Documented by: Albuterol Sulfate (Ventolin Aerosols) 2.5 mg INHALATION Q2H PRN PRN PRN Reason: SHORTNESS OF BREATH Last Admin: 11/08/19 09:12 Dose: 2.5 mg Documented by: Albuterol/Ipratropium (Duoneb) 3 ml INHALATION Q4HWA.RT [facility] Last Admin: 11/10/19 07:22 Dose: 3 ml Documented by: Aspirin (Ecotrin) 325 mg PO DAILY [facility] Last Admin: 11/09/19 08:21 Dose: 325 mg Documented by: Benzonatate (Tessalon Perle) 100 mg PO Q8H PRN PRN PRN Reason: COUGH Last Admin: 11/10/19 06:41 Dose: 100 mg Documented by: Clonazepam (Klonopin) 0.5 mg PO BREAKFAST [facility] Last Admin: 11/10/19 08:31 Dose: 0.5 mg Documented by: Clonazepam (Klonopin) 1 mg PO 1200 [facility] Last Admin: 11/09/19 11:14 Dose: 1 mg Documented by: Clonazepam (Klonopin) 0.5 mg PO QHS [facility] Last Admin: 11/09/19 22:08 Dose: 0.5 mg Documented by: Clozapine (Clozaril) 100 mg PO LUNCH [facility] Last Admin: 11/09/19 11:15 Dose: 100 mg Documented by: Clozapine (Clozaril) 200 mg PO DINNER [facility] Last Admin: 11/09/19 16:16 Dose: 200 mg Documented by: Clozapine (Clozaril) 300 mg PO QHS [facility] Last Admin: 11/09/19 22:25 Dose: 300 mg Documented by: Dextrose (D50w Syringe) 0 gm IV X1 PRN; Protocol PRN Reason: Hypoglycemia Enoxaparin Sodium (Lovenox) 40 mg SC DAILY [facility] Last Admin: 11/09/19 08:25 Dose: 40 mg Documented by: Ferrous Gluconate (Ferrous Gluconate) 324 mg PO 1200,1700 [facility] Last Admin: 11/09/19 16:17 Dose: 324 mg Documented by: Furosemide (Lasix) 20 mg PO DAILY [facility] Last Admin: 11/09/19 08:24 Dose: 20 mg Documented by: Glipizide (Glucotrol) 5 mg PO BIDAC [facility] Last Admin: 11/10/19 08:33 Dose: 5 mg Documented by: Glucagon () 1 mg IM .X1 PRN PRN Reason: Hypoglycemia Guaifenesin (Mucinex) 1,200 mg PO BID [facility] Last Admin: 11/09/19 22:09 Dose: 1,200 mg Documented by: Sodium Chloride () 250 mls @ 15 mls/hr IV .[id number] PRN PRN Reason: Saline Flush Insulin Glargine (Lantus ([facility])) 42 units SC 1100 [facility] Last Admin: 11/09/19 11:17 Dose: 42 u Documented by: Insulin Human Lispro (Humalog Kwikpen ([facility])) 0 unit SC [facility]; Protocol Last Admin: 11/10/19 06:43 Dose: Not Given Documented by: Labetalol HCl (Trandate) 10 mg IV Q4H PRN PRN PRN Reason: SBP > 160 Lubiprostone (Amitiza) 24 mcg PO BID [facility] Last Admin: 11/09/19 22:26 Dose: 24 mcg Documented by: Magnesium Hydroxide (Milk Of Magnesia) 30 ml PO DAILY PRN PRN PRN Reason: Constipation Ondansetron HCl (Zofran) 4 mg IV Q8H PRN PRN PRN Reason: NAUSEA/VOMITING Oxymetazoline HCl (Afrin ([facility])) 2 spray NS BID PRN PRN PRN Reason: CONGESTION Pantoprazole Sodium (Protonix) 20 mg PO DAILY [facility] Last Admin: 11/09/19 08:25 Dose: 20 mg Documented by: Potassium Chloride (K-Dur) [facility] Last Admin: 11/10/19 08:30 Dose: 20 meq Documented by: Pramipexole Dihydrochloride (Mirapex) 0.5 mg PO QHS [facility] Last Admin: 11/09/19 22:09 Dose: 0.5 mg Documented by: Pravastatin Sodium (Pravachol) 20 mg PO QHS [facility] Last Admin: 11/09/19 22:09 Dose: 20 mg Documented by: Prednisone () 40 mg PO DAILY@0800 [facility] Last Admin: 11/10/19 08:31 Dose: 40 mg Documented by: Risperidone (Risperdal) 2 mg PO QHS [facility] Last Admin: 11/09/19 22:27 Dose: 2 mg Documented by: Senna/Docusate Sodium (Senokot-S, Celia-Colace) 2 tablet PO BID PRN PRN PRN Reason: Constipation Last Admin: 11/09/19 22:09 Dose: 2 tablet Documented by: Sodium Chloride () 10 - 40 ml IV UD PRN PRN Reason: SALINE FLUSH Last Admin: 11/10/19 05:22 Dose: 10 ml Documented by: Venlafaxine HCl (Effexor Xr) 37.5 mg PO DAILY [facility] Last Admin: 11/09/19 08:24 Dose: 37.5 mg Documented by: Clinical Impression(s) from Imaging Studies Chest X-Ray 11/06/19 15:34 IMPRESSION: Near complete clearing of bilateral pulmonary infiltrates evident on the prior study. Electronically Signed: Kash Chua MD ([place]) at 16:31 EST , Service support , Code Visit Inpatient E&M: 67080 Subs Hosp L2
[2019-11-10] MEDS: predniSONE 20 MG Tablet 40 MG PO (08:31)
[2019-11-10] MEDS: clonazePAM 0.5 MG Tablet PO ×2 (08:31→21:27)
[2019-11-10] MEDS: glipiZIDE 5 MG Tablet PO ×2 (08:33→16:21)
--- NOTE | 2019-11-10 09:12 | CASEMGMT ---
Addendum entered by Maddi Tony 11/10/19 13:44: SW received call from Kimberley at [facility] stating she is able to accept pt and will submit for pre-cert. Plan: [facility] pending pre-cert Addendum entered by Maddi Tony 11/10/19 10:14: JONNY received call from pt's caregiver Leola who states she would be able to transport pt's cpap machine to SNF. JONNY placed a call to Kimberley at [facility] and updated her that pt's caregiver would be able to get pt's cpap to SNF. Kimberley asked for Leola's number as she will need to know if pt would be able to return to assisted eventually or if pt would need to be at SNF for terminologist. Kimberley states she will call Conchis to ask her this and then will speak with her wellness program administrator and then give this worker a call back to let this worker know if they can officially accept or not. Kimberley states she will call this worker back as soon as she is able to. Plan: [facility] pending acceptance and pre-cert Original Note: Social Work Note JONNY placed a call to pt's caregiver Leola and asked if someone is available to get pt's cpap machine from assisted and transport to [facility]. JONNY waiting for call back. JONNY faxed updated clinicals, bipap settings, and PT/OT to Kimberley at [facility]. JONNY wrote on fax coversheet to submit for pre-cert. JONNY updated physician. Plan: [facility] pending pre-cert Maddi Tony MARKETING SUPPORT ASSISTANT, FAST FOOD ASSISTANT RESTAURANT MANAGER
[2019-11-10] MEDS: Aspirin E.C. 325 MG Tablet PO (10:41)
[2019-11-10] MEDS: Lubiprostone 24 MCG Capsule PO ×2 (10:43→21:30)
[2019-11-10] MEDS: Venlafaxine XR 37.5 MG Capsule PO (10:43)
[2019-11-10] MEDS: Furosemide 20 MG Tablet PO (10:44)
[2019-11-10] MEDS: Enoxaparin 40 MG/0.4 ML Syringe SC (10:45)
[2019-11-10] MEDS: Pantoprazole Sodium 20 MG Tablet PO (10:45)
[2019-11-10] MEDS: guaiFENesin 1,200 MG Tablet 1200 MG PO ×2 (10:45→21:30)
[2019-11-10 11:11] LABS: Bedside Glucose 131 mg/dL (70-110)
[2019-11-10] MEDS: clonazePAM 1 MG Tablet PO (11:36)
[2019-11-10] MEDS: Ferrous Gluconate 324 MG Tablet PO ×2 (11:37→16:21)
--- NOTE | 2019-11-10 16:17 | CASEMGMT ---
Social Work Note JONNY received message from Radha at [facility] stating after further review pt is only coming to SNF for oxygen requirements and that is not a skillable need. JONNY placed a call back to Radha and left message stating pt is also coming to SNF for therapy as pt was assist of 1 with therapy along with the respiratory problems. Radha states that [facility] will likely only approve pt for maybe a week and then they will be stuck with trying to figure out where pt will go after SNF stay. Radha states pt was at [facility] in 2018 and was discharged from SNF to [facility] with oxygen so they feel pt is at baseline and may not be able to wean pt off oxygen. Radha states she doesn't know if pt would be long-term SNF appropriate and pt may trip the screen. Radha states they are just putting pt's referral and pre-cert on hold at this time until they can get more information regarding pt's plans for after SNF. JONNY placed a call to pt's CM Conchis at [facility]. Leola states she spoke with Kimberley at [facility] and was under the impression that the goal was to get pt weaned off oxygen during the day and then return to the [facility]cc with cpap at night. Leola states pt is able to be on cpap at night at the mcc just not able to be on oxygen during the day as pt would need supervision for oxygen and the mcc is not able to supervise pt. [facility] again states pt could return to mcc with cpap at night. JONNY asked Leola what the next step would be if the SNF was unable to wean pt off oxygen. Leola states she would have to look for a different mcc that could accommodate oxygen or she feels pt would be appropriate for assistant terminal manager in SNF as pt has cognitive impairment and requires assistance with ADLs. [facility] again states there is no way pt was on 3L [facility] continuos oxygen [facility] as they are not permitted to have patients that have continuous oxygen. JONNY placed a call back to Radha at [facility] and updated her on above information that pt would be able to return to mcc with cpap at night just no oxygen during the day, that pt's CM would be willing to look into different mcc that is permitted to have residents with oxygen and that pt's CM does feel pt would be appropriate for assistant terminal manager in SNF as pt requires assistance for ADLs and has cognitive impairment. Radha states he will speak with her administrators again and will give this worker a call. JONNY informed Radha that this worker is soon leaving for the day but she can call and leave this worker a message or this worker will call [facility] tomorrow. Radha states understanding. Plan: SNF pending acceptance and pre-cert Maddi Tony TOP CUTTER, EMAIL MARKETING INTERN
[2019-11-10] MEDS: Insulin Lispro 100 UNIT/ML INSULN.PEN SC ×2 (16:20→21:28)
[2019-11-10 16:36] LABS: Bedside Glucose 423 mg/dL (70-110)
[2019-11-10] MEDS: RisperiDONE 2 MG Tablet PO (21:30)
[2019-11-10] MEDS: Pravastatin 20 MG Tablet PO (21:32)
[2019-11-10] MEDS: Pramipexole Di-HCl 0.5 MG Tablet PO (21:35)
[2019-11-10 21:56] LABS: Bedside Glucose 155 mg/dL (70-110)
[2019-11-11] VITALS (28 sets, daily range): BP systolic 99–131; BP diastolic 52–96; PULSE 94–120; RESP 12–29; TEMP 36.2–37.1; O2SAT 86–97
--- NOTE | 2019-11-11 01:24 | CPS ---
Pt.'s FiO2 titrated from 35% - 40%; improving pt.'s oxygenation status
[2019-11-11] MEDS: Insulin Lispro 100 UNIT/ML INSULN.PEN SC ×4 (06:36→20:40)
[2019-11-11 07:05] LABS: Bedside Glucose 150 mg/dL (70-110)
[2019-11-11] MEDS: Ipratropium/Albuterol Sulfate 3 ML AMPUL.NEB INHALATION ×4 (07:06→18:58)
--- NOTE | 2019-11-11 09:18 | CASEMGMT ---
Addendum entered by Maddi Tony 11/11/19 11:58: JONNY received call from Daisha in [facility] stating [facility]CU would be willing to accept pt. JONNY informed Daisha that this worker will need to call pt's guardian to confirm if [facility] is ok. JONNY placed a call to pt's legal guardian Melony and left her a message updating her on [facility] and asking if TCU is appropriate. JONNY waiting for call back. Addendum entered by Maddi Tony 11/11/19 11:18: JONNY received call from Kimberley at [facility] stating due to pt not having a definite plan for discharge from SNF when [facility] cuts pt, they are not able to accept pt. SW in to speak with pt. JONNY introduced self and role at [facility]. SW updated pt on [facility] not able to accept pt. Pt gave this worker permission to call her guardian to discuss next SNF options. JONNY placed a call to pt's CM at [facility] Leola and updated her that [facility] is not able to accept pt due to not having plan for discharge once pt leaves SNF. JONNY asked Leola if she can work on different nursing home for pt now that can accommodate pt's oxygen levels and informed her that she will need to have an option lined up for pt within the next two weeks as this worker is going to run into this issue with every SNF that this worker calls for pt. JONNY informed Leola that every SNF is going to want a back up plan lined up in the event that they are not able to get pt weaned off oxygen. JONNY placed a call to Daisha in [facility] and left message inquiring if pt would be appropriate for TCU. JONNY waiting for call back. JONNY will call pt's guardian once this worker hears from TCU. Original Note: Social Work Note JONNY placed a call to Kimberley at [facility]. Kimberley states she was updated by Radha yesterday and she is currently in her morning meeting and her configuration management administrator is not currently at work. Kimberley asked if pt could go to a different nursing home with oxygen why is pt not going there from [facility]. JONNY informed Kimberley that pt was a min assist of 1 with PT/OT so currently pt is requiring assistance with PT/OT and also going to SNF would give pt's CM more time to look at a nursing home that can accommodate pt's oxygen requirements. Kimberley states she will call pt's CM Leola again today to discuss discharge plans from SNF and will call this worker back soon. Plan: SNF pending acceptance and pre-cert Maddi Tony POSTPARTUM NURSE, PREPRESS PROOFER
[2019-11-11] MEDS: Venlafaxine XR 37.5 MG Capsule PO (09:29)
[2019-11-11] MEDS: Lubiprostone 24 MCG Capsule PO ×2 (09:29→20:26)
[2019-11-11] MEDS: Furosemide 20 MG Tablet PO (09:29)
[2019-11-11] MEDS: glipiZIDE 5 MG Tablet PO ×2 (09:29→17:04)
[2019-11-11] MEDS: predniSONE 20 MG Tablet 40 MG PO (09:30)
[2019-11-11] MEDS: Aspirin E.C. 325 MG Tablet PO (09:30)
[2019-11-11] MEDS: guaiFENesin 1,200 MG Tablet 1200 MG PO ×2 (09:30→20:24)
[2019-11-11] MEDS: Enoxaparin 40 MG/0.4 ML Syringe SC (09:31)
[2019-11-11] MEDS: Pantoprazole Sodium 20 MG Tablet PO (09:31)
[2019-11-11] MEDS: clonazePAM 0.5 MG Tablet PO ×2 (09:32→20:27)
[2019-11-11] MEDS: clonazePAM 1 MG Tablet PO (11:19)
[2019-11-11] MEDS: Ferrous Gluconate 324 MG Tablet PO (11:19)
[2019-11-11 11:26] LABS: Bedside Glucose 208 mg/dL (70-110)
[2019-11-11] MEDS: Acetaminophen 325 MG Tablet 650 MG PO (12:31)
--- NOTE | 2019-11-11 13:10 | PCM.PN.HOSP ---
Patient Problems: Active and Suspected Problems COPD exacerbation (Acute) Elevated troponin (Acute) Anxiety attack (Acute) Reason for Visit: COPD exacerbation with acute on chronic hypoxic respiratory failure Vitals/I&O's: Vital Signs Temp Pulse Resp BP Pulse Ox 98.5 F 112 H 22 H 116/62 95 11/11/19 09:27 11/11/19 10:29 11/11/19 10:29 11/11/19 09:27 11/11/19 09:27 Oxygen Flow Rate (L/min) 3 Oxygen Delivery Method Nasal Cannula Weight: 197 lb 8.547 oz Body Mass Index (BMI) 37.3 Intake and Output for Last 24 Hours 11/09/19 11/10/19 11/11/19 23:59 23:59 23:59 Intake Total 1360 / 1460 150 / 220 490 / 490 Output Total 850 / 1050 200 / 400 200 / 200 Balance 510 / 410 -50 / -180 290 / 290 General: Alert, Oriented x3, Cooperative HEENT: Atraumatic, PERRLA, EOMI, Normocephalic Neck: Supple, No JVD, Negative Carotid Bruits Lungs: Clear to auscultation, Normal air movement Cardiovascular: Regular rate, Normal S1, Normal S2, No murmurs, Tachycardic Abdomen: Bowel Sounds Present, Soft, Non Tender Extremities: No edema, Capillary Refill Less than 3 Seconds Skin: No rashes, No breakdown Musculoskeletal: No Tenderness to Palpation of Joints or Extremities, Arthritic Changes Neurological: Cranial nerves II-XII grossly intact, Neuro grossly intact Psych/Mental Status: Normal Affect, Appropriate Microbiology Past 72 Hours 11/07/19 10:00 Urine, Clean Catch Urine Culture - Final Culture exhibits no growth. 11/07/19 00:55 Blood Culture (Wb) - Anticubital Left Blood Culture - Preliminary No growth in 48 hours. 11/07/19 00:35 Blood Culture (Wb) - Anticubital Right Blood Culture - Preliminary No growth in 48 hours. Laboratory Results 11/10/19 16:18: POC Glucose 423 H 11/10/19 21:25: POC Glucose 155 H 11/11/19 06:35: POC Glucose 150 H 11/11/19 11:15: POC Glucose 208 H Current Medications Acetaminophen (Tylenol) 650 mg PO Q6H PRN PRN PRN Reason: Pain Score 1-3/Temp > 100.7 F Last Admin: 11/11/19 12:31 Dose: 650 mg Documented by: Albuterol Sulfate (Ventolin Aerosols) 2.5 mg INHALATION Q2H PRN PRN PRN Reason: SHORTNESS OF BREATH Last Admin: 11/08/19 09:12 Dose: 2.5 mg Documented by: Albuterol/Ipratropium (Duoneb) 3 ml INHALATION Q4HWA.RT [facility] Last Admin: 11/11/19 10:29 Dose: 3 ml Documented by: Aspirin (Ecotrin) 325 mg PO DAILY [facility] Last Admin: 11/11/19 09:30 Dose: 325 mg Documented by: Benzonatate (Tessalon Perle) 100 mg PO Q8H PRN PRN PRN Reason: COUGH Last Admin: 11/10/19 06:41 Dose: 100 mg Documented by: Clonazepam (Klonopin) 0.5 mg PO BREAKFAST [facility] Last Admin: 11/11/19 09:32 Dose: 0.5 mg Documented by: Clonazepam (Klonopin) 1 mg PO 1200 [facility] Last Admin: 11/11/19 11:19 Dose: 1 mg Documented by: Clonazepam (Klonopin) 0.5 mg PO QHS [facility] Last Admin: 11/10/19 21:27 Dose: 0.5 mg Documented by: Clozapine (Clozaril) 100 mg PO LUNCH [facility] Last Admin: 11/11/19 11:20 Dose: 100 mg Documented by: Clozapine (Clozaril) 200 mg PO DINNER [facility] Last Admin: 11/10/19 16:21 Dose: 200 mg Documented by: Clozapine (Clozaril) 300 mg PO QHS [facility] Last Admin: 11/10/19 21:28 Dose: 300 mg Documented by: Dextrose (D50w Syringe) 0 gm IV X1 PRN; Protocol PRN Reason: Hypoglycemia Enoxaparin Sodium (Lovenox) 40 mg SC DAILY [facility] Last Admin: 11/11/19 09:31 Dose: 40 mg Documented by: Ferrous Gluconate (Ferrous Gluconate) 324 mg PO 1200,1700 [facility] Last Admin: 11/11/19 11:19 Dose: 324 mg Documented by: Furosemide (Lasix) 20 mg PO DAILY [facility] Last Admin: 11/11/19 09:29 Dose: 20 mg Documented by: Glipizide (Glucotrol) 5 mg PO BIDAC [facility] Last Admin: 11/11/19 09:29 Dose: 5 mg Documented by: Glucagon () 1 mg IM .X1 PRN PRN Reason: Hypoglycemia Guaifenesin (Mucinex) 1,200 mg PO BID [facility] Last Admin: 11/11/19 09:30 Dose: 1,200 mg Documented by: Sodium Chloride () 250 mls @ 15 mls/hr IV .[id number] PRN PRN Reason: Saline Flush Insulin Glargine (Lantus ([facility] [place])) 42 units SC 1100 [facility] Last Admin: 11/11/19 11:19 Dose: 42 u Documented by: Insulin Human Lispro (Humalog Kwikpen ([facility] [place])) 0 unit SC ACHS [facility]; Protocol Last Admin: 11/11/19 11:19 Dose: 4 unit Documented by: Labetalol HCl (Trandate) 10 mg IV Q4H PRN PRN PRN Reason: SBP > 160 Lubiprostone (Amitiza) 24 mcg PO BID [facility] Last Admin: 11/11/19 09:29 Dose: 24 mcg Documented by: Magnesium Hydroxide (Milk Of Magnesia) 30 ml PO DAILY PRN PRN PRN Reason: Constipation Ondansetron HCl (Zofran) 4 mg IV Q8H PRN PRN PRN Reason: NAUSEA/VOMITING Oxymetazoline HCl (Afrin ([facility] [place])) 2 spray NS BID PRN PRN PRN Reason: CONGESTION Pantoprazole Sodium (Protonix) 20 mg PO DAILY [facility] Last Admin: 11/11/19 09:31 Dose: 20 mg Documented by: Potassium Ch[facility] ([facility] Admin: 11/11/19 09:29 Dose: 20 meq Documented by: Pramipexole Dihydrochloride (Mirapex) 0.5 mg PO QHS [facility] Last Admin: 11/10/19 21:35 Dose: 0.5 mg Documented by: Pravastatin Sodium (Pravachol) 20 mg PO QHS [facility] Last Admin: 11/10/19 21:32 Dose: 20 mg Documented by: Prednisone () 40 mg PO DAILY@0800 [facility] Last Admin: 11/11/19 09:30 Dose: 40 mg Documented by: Risperidone (Risperdal) 2 mg PO QHS [facility] Last Admin: 11/10/19 21:30 Dose: 2 mg Documented by: Senna/Docusate Sodium (Senokot-S, Celia-Colace) 2 tablet PO BID PRN PRN PRN Reason: Constipation Last Admin: 11/09/19 22:09 Dose: 2 tablet Documented by: Sodium Chloride () 10 - 40 ml IV UD PRN PRN Reason: SALINE FLUSH Last Admin: 11/10/19 05:22 Dose: 10 ml Documented by: Venlafaxine HCl (Effexor Xr) 37.5 mg PO DAILY [facility] Last Admin: 11/11/19 09:29 Dose: 37.5 mg Documented by: STROKE Vital Signs/Narrative: Vital Signs Temp Pulse Resp BP Pulse Ox 11/11/19 10:29 112 H 22 H 11/11/19 09:27 98.5 F 110 H 18 116/62 95 Medical Necessity - Tobacco Use Smoking Status: Former smoker Assessment/Plan All Active Problems COPD exacerbation (Acute) Elevated troponin (Acute) Anxiety attack (Acute) patient is a 53-year-old lady who presented with progressive shortness of breath and consistent with COPD exacerbation with chronic toxic respiratory failure. She was admitted to a monitored bed where patient is being managed. Patient was found to have elevated troponin attributed to demand ischemia 1. chronic hypoxic respiratory failure secondary to COPD with acute exacerbation ?Managed with aerosol treatment and steroid as well as antibiotics in addition to supplemental oxygen. Currently patient is on 3 L of oxygen. She was mostly on 3 L of oxygen sometimes 4 L/min. Continue bronchodilator and steroid. plan is for patient to be transferred to a facility capable of handling patient needing continuous oxygen. Patient cannot go back to skilled nursing as they cannot manage patient on continuous oxygen. On doxycycline added 2. Elevated troponin secondary from demand ischemia ?Medical management only 3. Anxiety attack ? is on Klonopin 4. Chronic diastolic congestive heart failure - stable 5. Diabetes mellitus type 2 with complications including hyperglycemia; - Accu-Cheks before meals and at bedtime with sliding scale coverage addition to scheduled long-acting insulin 11/11: Long-acting insulin, Lantus increased to 50 units daily. 6. Obstructive sleep apnea - patient is on CPAP at night 7. Schizophrenia - currently stable did continue patient psychotropic medications 8. Dyslipidemia -patient is on statin therapy, continued at home dose 9. Obesity with BMI of 37 10. DVT prophylaxis SC Lovenox Total time of the visit including total time spent in counseling or coordination of care, (more than 50% of the total time, spent in obtaining medical information from nurses and other ancillary care providers), , review of labs and imaging is 30 minutes Microbiology Past 72 Hours 11/07/19 10:00 Urine, Clean Catch Urine Culture - Final Culture exhibits no growth. 11/07/19 00:55 Blood Culture (Wb) - Anticubital Left Blood Culture - Preliminary No growth in 48 hours. 11/07/19 00:35 Blood Culture (Wb) - Anticubital Right Blood Culture - Preliminary No growth in 48 hours. Laboratory Results 11/10/19 16:18: POC Glucose 423 H 11/10/19 21:25: POC Glucose 155 H 11/11/19 06:35: POC Glucose 150 H 11/11/19 11:15: POC Glucose 208 H Active Medications Acetaminophen (Tylenol) 650 mg PO Q6H PRN PRN PRN Reason: Pain Score 1-3/Temp > 100.7 F Last Admin: 11/11/19 12:31 Dose: 650 mg Documented by: Albuterol Sulfate (Ventolin Aerosols) 2.5 mg INHALATION Q2H PRN PRN PRN Reason: SHORTNESS OF BREATH Last Admin: 11/08/19 09:12 Dose: 2.5 mg Documented by: Albuterol/Ipratropium (Duoneb) 3 ml INHALATION Q4HWA.RT [facility] Last Admin: 11/11/19 10:29 Dose: 3 ml Documented by: Aspirin (Ecotrin) 325 mg PO DAILY [facility] Last Admin: 11/11/19 09:30 Dose: 325 mg Documented by: Benzonatate (Tessalon Perle) 100 mg PO Q8H PRN PRN PRN Reason: COUGH Last Admin: 11/10/19 06:41 Dose: 100 mg Documented by: Clonazepam (Klonopin) 0.5 mg PO BREAKFAST [facility] Last Admin: 11/11/19 09:32 Dose: 0.5 mg Documented by: Clonazepam (Klonopin) 1 mg PO 1200 [facility] Last Admin: 11/11/19 11:19 Dose: 1 mg Documented by: Clonazepam (Klonopin) 0.5 mg PO QHS [facility] Last Admin: 11/10/19 21:27 Dose: 0.5 mg Documented by: Clozapine (Clozaril) 100 mg PO LUNCH [facility] Last Admin: 11/11/19 11:20 Dose: 100 mg Documented by: Clozapine (Clozaril) 200 mg PO DINNER [facility] Last Admin: 11/10/19 16:21 Dose: 200 mg Documented by: Clozapine (Clozaril) 300 mg PO QHS [facility] Last Admin: 11/10/19 21:28 Dose: 300 mg Documented by: Dextrose (D50w Syringe) 0 gm IV X1 PRN; Protocol PRN Reason: Hypoglycemia Enoxaparin Sodium (Lovenox) 40 mg SC DAILY [facility] Last Admin: 11/11/19 09:31 Dose: 40 mg Documented by: Ferrous Gluconate (Ferrous Gluconate) 324 mg PO 1200,1700 [facility] Last Admin: 11/11/19 11:19 Dose: 324 mg Documented by: Furosemide (Lasix) 20 mg PO DAILY [facility] Last Admin: 11/11/19 09:29 Dose: 20 mg Documented by: Glipizide (Glucotrol) 5 mg PO BIDAC [facility] Last Admin: 11/11/19 09:29 Dose: 5 mg Documented by: Glucagon () 1 mg IM .X1 PRN PRN Reason: Hypoglycemia Guaifenesin (Mucinex) 1,200 mg PO BID [facility] Last Admin: 11/11/19 09:30 Dose: 1,200 mg Documented by: Sodium Chloride () 250 mls @ 15 mls/hr IV .[id number] PRN PRN Reason: Saline Flush Insulin Glargine (Lantus ([facility])) 42 units SC 1100 [facility] Last Admin: 11/11/19 11:19 Dose: 42 u Documented by: Insulin Human Lispro (Humalog Kwikpen ([facility])) 0 unit SC ACHS [facility]; Protocol Last Admin: 11/11/19 11:19 Dose: 4 unit Documented by: Labetalol HCl (Trandate) 10 mg IV Q4H PRN PRN PRN Reason: SBP > 160 Lubiprostone (Amitiza) 24 mcg PO BID [facility] Last Admin: 11/11/19 09:29 Dose: 24 mcg Documented by: Magnesium Hydroxide (Milk Of Magnesia) 30 ml PO DAILY PRN PRN PRN Reason: Constipation Ondansetron HCl (Zofran) 4 mg IV Q8H PRN PRN PRN Reason: NAUSEA/VOMITING Oxymetazoline HCl (Afrin ([facility])) 2 spray NS BID PRN PRN PRN Reason: CONGESTION Pantoprazole Sodium (Protonix) 20 mg PO DAILY [facility] Last Admin: 11/11/19 09:31 Dose: 20 mg Documented by: Potassium Chlor[facility] ([facility]) [facility] Last Admin: 11/11/19 09:29 Dose: 20 meq Documented by: Pramipexole Dihydrochloride (Mirapex) 0.5 mg PO QHS [facility] Last Admin: 11/10/19 21:35 Dose: 0.5 mg Documented by: Pravastatin Sodium (Pravachol) 20 mg PO QHS [facility] Last Admin: 11/10/19 21:32 Dose: 20 mg Documented by: Prednisone () 40 mg PO DAILY@0800 [facility] Last Admin: 11/11/19 09:30 Dose: 40 mg Documented by: Risperidone (Risperdal) 2 mg PO QHS [facility] Last Admin: 11/10/19 21:30 Dose: 2 mg Documented by: Senna/Docusate Sodium (Senokot-S, Celia-Colace) 2 tablet PO BID PRN PRN PRN Reason: Constipation Last Admin: 11/09/19 22:09 Dose: 2 tablet Documented by: Sodium Chloride () 10 - 40 ml IV UD PRN PRN Reason: SALINE FLUSH Last Admin: 11/10/19 05:22 Dose: 10 ml Documented by: Venlafaxine HCl (Effexor Xr) 37.5 mg PO DAILY [facility] Last Admin: 11/11/19 09:29 Dose: 37.5 mg Documented by: Code Visit Inpatient E&M: 03321 Subs Hosp L2
--- NOTE | 2019-11-11 14:32 | CASEMGMT ---
Addendum entered by Maddi Tony 11/11/19 15:53: SW received call from pt's guardian Melony who is agreeable to TCU. SW placed a call to Daisha in TCU and asked to submit for pre-cert. Plan: TCU pending pre-cert Original Note: Social Work Note SW attempted to call pt's guardian Melony again, no answer, SW left message again to give this worker a call back. 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
--- NOTE | 2019-11-11 14:35 | PCM.TXEXTCAR ---
- Diet 11/06/19 21:29 Diet: Cardiac: Calorie-Controlled Food consistency:: Regular Liquid Consistency:: Regular/Thin Is pt able to select menu?: No How many daily calories?: 1800 calorie - Routine Orders/Code Status Suppository Type: Dulcolax 10mg Suppository Frequency: Daily PRN - Wound(s) rt foot Wound Type: Abrasion - Allergies/Procedures Done in Hospital Allergies/Adverse Reactions: Allergies No Known Allergies Allergy (Verified 11/06/19 15:26) - Dietary and Speech Recommendations Dietitian Recommendations/Changes: Continue 1800 calorie; cardiac diet with fluid restriction as needed. - Follow Up Care Primary Care Physician: Boris Vance MD [Primary Care Provider] - Please follow up with your Primary Care Physician in: 1-2 weeks Please Follow Up With: Koby Ramirez MD When: 1-2 weeks Please Follow Up With: Boris Vance MD
--- NOTE | 2019-11-11 14:35 | PCM.DC.SUM ---
Discharge Date and Diagnosis - Problem List Patient Problems: Active and Suspected Problems COPD exacerbation (Acute) Elevated troponin (Acute) Anxiety attack (Acute) Date of Admission: 11/06/19 Date of Discharge: 11/11/19 - Primary Discharge Diagnosis Active and Suspected Problems COPD exacerbation (Acute) Elevated troponin (Acute) Anxiety attack (Acute) - Secondary Discharge Diagnosis Chronic Problems COPD (chronic obstructive pulmonary disease) (Chronic) Hyperlipidemia (Chronic) Diabetes mellitus type 2 in obese (Chronic) HTN (hypertension) (Chronic) Schizophrenia (Chronic) Hospital Course and Treatment Operations: None Summary of Care Provided: The patient is a 53 year old F [] Patient Problems: Active and Suspected Problems COPD exacerbation (Acute) Elevated troponin (Acute) Anxiety attack (Acute) - Physical Exam Vitals/I&O's: Vital Signs Temp Pulse Resp BP Pulse Ox 98.5 F 110 H 18 116/62 95 11/11/19 09:27 11/11/19 09:27 11/11/19 09:27 11/11/19 09:27 11/11/19 09:27 Oxygen Flow Rate (L/min) 3 Oxygen Delivery Method Nasal Cannula Weight: 197 lb 8.547 oz Body Mass Index (BMI) 37.3 Intake and Output for Last 24 Hours 11/09/19 11/10/19 11/11/19 23:59 23:59 23:59 Intake Total 1360 / 1460 150 / 220 190 / 190 Output Total 850 / 1050 200 / 400 200 / 200 Balance 510 / 410 -50 / -180 -10 / -10 Microbiology Past 72 Hours 11/07/19 10:00 Urine, Clean Catch Urine Culture - Final Culture exhibits no growth. 11/07/19 00:55 Blood Culture (Wb) - Anticubital Left Blood Culture - Preliminary No growth in 48 hours. 11/07/19 00:35 Blood Culture (Wb) - Anticubital Right Blood Culture - Preliminary No growth in 48 hours. Laboratory Results 11/10/19 10:57: POC Glucose 131 H 11/10/19 16:18: POC Glucose 423 H 11/10/19 21:25: POC Glucose 155 H 11/11/19 06:35: POC Glucose 150 H Current Medications Acetaminophen (Tylenol) 650 mg PO Q6H PRN PRN PRN Reason: Pain Score 1-3/Temp > 100.7 F Last Admin: 11/10/19 05:22 Dose: 650 mg Documented by: Albuterol Sulfate (Ventolin Aerosols) 2.5 mg INHALATION Q2H PRN PRN PRN Reason: SHORTNESS OF BREATH Last Admin: 11/08/19 09:12 Dose: 2.5 mg Documented by: Albuterol/Ipratropium (Duoneb) 3 ml INHALATION Q4HWA.RT [facility] Last Admin: 11/11/19 07:06 Dose: 3 ml Documented by: Aspirin (Ecotrin) 325 mg PO DAILY [facility] Last Admin: 11/11/19 09:30 Dose: 325 mg Documented by: Benzonatate (Tessalon Perle) 100 mg PO Q8H PRN PRN PRN Reason: COUGH Last Admin: 11/10/19 06:41 Dose: 100 mg Documented by: Clonazepam (Klonopin) 0.5 mg PO BREAKFAST [facility] Last Admin: 11/11/19 09:32 Dose: 0.5 mg Documented by: Clonazepam (Klonopin) 1 mg PO 1200 [facility] Last Admin: 11/10/19 11:36 Dose: 1 mg Documented by: Clonazepam (Klonopin) 0.5 mg PO QHS [facility] Last Admin: 11/10/19 21:27 Dose: 0.5 mg Documented by: Clozapine (Clozaril) 100 mg PO LUNCH [facility] Last Admin: 11/10/19 11:37 Dose: 100 mg Documented by: Clozapine (Clozaril) 200 mg PO DINNER [facility] Last Admin: 11/10/19 16:21 Dose: 200 mg Documented by: Clozapine (Clozaril) 300 mg PO QHS [facility] Last Admin: 11/10/19 21:28 Dose: 300 mg Documented by: Dextrose (D50w Syringe) 0 gm IV X1 PRN; Protocol PRN Reason: Hypoglycemia Enoxaparin Sodium (Lovenox) 40 mg SC DAILY [facility] Last Admin: 11/11/19 09:31 Dose: 40 mg Documented by: Ferrous Gluconate (Ferrous Gluconate) 324 mg PO 1200,1700 [facility] Last Admin: 11/10/19 16:21 Dose: 324 mg Documented by: Furosemide (Lasix) 20 mg PO DAILY [facility] Last Admin: 11/11/19 09:29 Dose: 20 mg Documented by: Glipizide (Glucotrol) 5 mg PO BIDAC [facility] Last Admin: 11/11/19 09:29 Dose: 5 mg Documented by: Glucagon () 1 mg IM .X1 PRN PRN Reason: Hypoglycemia Guaifenesin (Mucinex) 1,200 mg PO BID [facility] Last Admin: 11/11/19 09:30 Dose: 1,200 mg Documented by: Sodium Chloride () 250 mls @ 15 mls/hr IV .[id number] PRN PRN Reason: Saline Flush Insulin Glargine (Lantus ([facility])) 42 units SC 1100 [facility] Last Admin: 11/10/19 11:35 Dose: 42 u Documented by: Insulin Human Lispro (Humalog Kwikpen ([facility])) 0 unit SC ACHS [facility]; Protocol Last Admin: 11/11/19 06:36 Dose: 2 unit Documented by: Labetalol HCl (Trandate) 10 mg IV Q4H PRN PRN PRN Reason: SBP > 160 Lubiprostone (Amitiza) 24 mcg PO BID [facility] Last Admin: 11/11/19 09:29 Dose: 24 mcg Documented by: Magnesium Hydroxide (Milk Of Magnesia) 30 ml PO DAILY PRN PRN PRN Reason: Constipation Ondansetron HCl (Zofran) 4 mg IV Q8H PRN PRN PRN Reason: NAUSEA/VOMITING Oxymetazoline HCl (Afrin ([facility])) 2 spray NS BID PRN PRN PRN Reason: CONGESTION Pantoprazole Sodium (Protonix) 20 mg PO DAILY [facility] Last Admin: 11/11/19 09:31 Dose: 20 mg Documented by: [facility] Last Admin: 11/11/19 09:29 Dose: 20 meq Documented by: Pramipexole Dihydrochloride (Mirapex) 0.5 mg PO QHS [facility] Last Admin: 11/10/19 21:35 Dose: 0.5 mg Documented by: Pravastatin Sodium (Pravachol) 20 mg PO QHS [facility] Last Admin: 11/10/19 21:32 Dose: 20 mg Documented by: Prednisone () 40 mg PO DAILY@0800 [facility] Last Admin: 11/11/19 09:30 Dose: 40 mg Documented by: Risperidone (Risperdal) 2 mg PO QHS [facility] Last Admin: 11/10/19 21:30 Dose: 2 mg Documented by: Senna/Docusate Sodium (Senokot-S, Celia-Colace) 2 tablet PO BID PRN PRN PRN Reason: Constipation Last Admin: 11/09/19 22:09 Dose: 2 tablet Documented by: Sodium Chloride () 10 - 40 ml IV UD PRN PRN Reason: SALINE FLUSH Last Admin: 11/10/19 05:22 Dose: 10 ml Documented by: Venlafaxine HCl (Effexor Xr) 37.5 mg PO DAILY [facility] Last Admin: 11/11/19 09:29 Dose: 37.5 mg Documented by: Discharge Diet: Low fat/ Low Cholesterol, 1800 Calorie Control Diet, 2000 mg Sodium Diet Discharge Activity: Return to Normal Activity Home Medications: Medications to take at Discharge Clozapine [Clozaril] 100 mg PO LUNCH 03/28/14 Risperidone [Risperdal] 2 mg PO QHS 03/28/14 glipiZIDE [Glucotrol] 5 mg PO BIDAC 03/28/14 metFORMIN HCl [Glucophage] 1,000 mg PO BID 03/28/14 Clozapine [Clozaril] 300 mg PO QHS 12/23/14 Insulin Glargine [Lantus SoloStar Pen] 42 units SC DAILY 12/23/14 Desvenlafaxine Succinate [Pristiq] 50 mg PO DAILY 07/25/15 Risperidone Microspheres [Risperdal Consta] 50 mg IM Q14D 07/25/15 Pravastatin Sodium 20 mg PO QHS 12/18/16 Clozapine [Clozaril] 200 mg PO DINNER 10/11/17 Potassium Chloride [K-Dur] 20 meq PO DAILY #30 tab 10/16/17 Cholecalciferol (Vitamin D3) [Vitamin D3] 1,000 unit PO DAILY 10/17/17 [place]-3 Fatty Acids/Fish Oil [Fish Oil 1,000 mg Capsule] 1 each PO DAILY 10/17/17 Albuterol IH (ProAir) [Proair Hfa] 2 puff INHALATION PRN PRN 07/22/18 Aspirin [Aspirin EC] 325 mg PO DAILY 07/22/18 Clonazepam [Klonopin] 0.5 mg PO BREAKFAST 07/22/18 Clonazepam [Klonopin] 0.5 mg PO QHS 07/22/18 Clonazepam [Klonopin] 1 mg PO 1200 07/22/18 Ferrous Gluconate 325 mg PO BIDCM 07/22/18 Fluticasone/Vilanterol [Breo Ellipta 100-25 Mcg INH] 1 puff IH DAILY 07/22/18 Furosemide [Lasix] 20 mg PO DAILY 07/22/18 Lubiprostone [Amitiza] 24 mcg PO BID 07/22/18 Acetaminophen [Mapap] 500 - 1,000 mg PO TID PRN PRN 10/31/19 Magnesium Hydroxide [Milk Of Magnesia] 30 ml PO DAILY PRN PRN 10/31/19 Omeprazole 20 mg PO DAILY 10/31/19 Oxymetazoline HCl [Nasal Relief] 2 spray NS PRN PRN 10/31/19 Pramipexole Di-HCl [Mirapex] 0.5 mg PO QHS 10/31/19 Umeclidinium [place] Inhaler [Incruse Ellipta Inhaler] 1 puff IH DAILY 10/31/19 Wheat Dextrin [Benefiber] 15 ml PO DAILY 10/31/19 Amox/Clavulanate Tablet [Augmentin Tablet] 875 mg PO Q12 tab 11/09/19 Benzonatate [Tessalon Perle] 100 mg PO Q8H PRN PRN #12 cap 11/09/19 Prednisone 10 mg PO UD #30 tab 11/09/19 Following Prescrptions Were Given to Patient: Prednisone 10 mg PO UD #30 tab Transmission Status: Received by [facility] Benzonatate [Tessalon Perle] 100 mg PO Q8H PRN PRN #12 cap PRN Reason: Cough Transmission Status: Received by [facility] Primary Care Physician: Boris Vance MD [Primary Care Provider] - Please follow up with your Primary Care Physician in: 1-2 weeks Please Follow Up With: Koby Ramirez MD When: 1-2 weeks Please Follow Up With: Boris Vance MD Disposition: Home Medical Necessity - Tobacco Use Smoking Status: Former smoker
--- NOTE | 2019-11-11 15:39 | RAD_ITS ---
STUDY: X-RAY CHEST REASON FOR EXAM: Female, 53 years old. ACUTE COPD EXACERBATION, SHORT OF BREATH, ANXIETY ATTACK TECHNIQUE: 1 view COMPARISON: Prior chest exam of November 06, 2019, October 31, 2019 and October 26, 2015 FINDINGS: Improved chest expansion. Further improvement in the left upper and lower lobe infiltrates from prior examination. Minimal residual infiltrate in the left lower lung zone. Appearance of the chest is approaching baseline appearance of October 26, 2015 Normal size heart. Normal mediastinum and reshma. Normal visualized pulmonary arteries. Normal visualized aortic arch and descending thoracic aorta. Normal visualized thoracic spine. Normal visualized ribs, clavicles, and shoulders. There is no demonstrated abnormality of the visualized soft tissue structures of the upper abdomen. RAD/Chest 1 View (Portable) IMPRESSION: Improving inspiration and improving infiltrates of the left upper and lower lung zones now with minimal infiltrates in the left lower lobe, approaching baseline appearance of October 26, 2015. Electronically Signed: Kiersten Murdock MD at 16:21 EST , Service support ,
--- NOTE | 2019-11-11 15:40 | CPS ---
Patient refusing bipap
[2019-11-11] MEDS: 0.9% Saline Lock 10 ML Syringe IV ×3 (16:03→20:28)
[2019-11-11] MEDS: Furosemide 20 MG/2 ML VIAL IV (16:03)
[2019-11-11 16:11] LABS: Allen Test POS; Base Excess 8 mmol/L (-2 to +2); Bicarbonate 33.1 mmol/L (22-26); Blood Gas Specimen Type ART; O2 Delivery Device Nasal Can; PO2 65 mmHG (75-100); SITE R Radial; SO2 92 % (95-99); Time Given 1603; Total Carbon Dioxide 35 mmol/L; pCO2 52.4 mmHg (35-45); pH 7.41 (7.35-7.45)
[2019-11-11] MEDS: Doxycycline 100 MG CAPSULE PO ×2 (16:13→21:12)
--- NOTE | 2019-11-11 16:35 | NURSING ---
Report called the Opal in ICU.
--- NOTE | 2019-11-11 16:39 | NURSING ---
Attempted to call patient's guardian x2 with no answer. Will attempt at a later time.
[2019-11-11 16:56] LABS: Bedside Glucose 354 mg/dL (70-110)
--- NOTE | 2019-11-11 17:00 | NURSING ---
Melony, patient's guardian updated of transfer to ICU.
[2019-11-11 18:29] LABS: BNP,B-Type NATRIURETIC PEPTIDE 2.8 pg/mL (0-100)
[2019-11-11] MEDS: Pravastatin 20 MG Tablet PO (20:27)
[2019-11-11] MEDS: RisperiDONE 2 MG Tablet PO (20:27)
[2019-11-11 20:46] LABS: Bedside Glucose 327 mg/dL (70-110)
[2019-11-11] MEDS: Pramipexole Di-HCl 0.5 MG Tablet PO (21:12)
--- NOTE | 2019-11-11 23:52 | CPS ---
patient slightly agitated, will try pap therapy again later. RN aware
[2019-11-12] VITALS (18 sets, daily range): BP systolic 111–144; BP diastolic 65–90; PULSE 74–115; RESP 14–24; TEMP 36.1–36.6; O2SAT 89–98
[2019-11-12] MEDS: Benzonatate 100 MG Capsule PO ×2 (00:35→21:57)
[2019-11-12] MEDS: Ipratropium/Albuterol Sulfate 3 ML AMPUL.NEB INHALATION ×4 (05:55→18:34)
--- NOTE | 2019-11-12 06:28 | PCM.CON.CC ---
Reason for Consult Date of Consultation: 11/12/19 Reason for Consultation: Respiratory failure History of Present Illness: The patient is a 53-year-old female, with a history as outlined below, who initially presented to the emergency department on November 06 with complaints of shortness of breath. The patient has an apparent history of COPD and obstructive sleep apnea, managed by Dr. Ramirez on an outpatient basis. The patient also has a known history of schizophrenia and resides with in a fpc. She does report a previous smoking history, but is unable to tell me how much she used to smoke and when exactly she quit smoking. She also reports that she does utilize inhalers but is unable to recall their names. The patient was just discharged from the hospital on November 02 after having been admitted for 48 hours and treated for a COPD exacerbation, which is felt to be secondary to community-acquired pneumonia. The patient completed a 7-day treatment course of antibiotics and was provided with a prednisone taper. Per documentation, the patient normally wears 3 L/min of supplemental oxygen at baseline. The patient once again has been managed during this hospitalization for acute respiratory insufficiency secondary to COPD exacerbation. She has been on scheduled bronchodilators, antibiotics and steroids. In addition, she has been on Lasix as well. On the evening of November 11, the patient was noted to be more short of breath and tachypneic. She was subsequently placed on BiPAP and transferred to the medical intensive care unit. Overnight, the patient refused to wear BiPAP for any degree of time. Nursing staff did report that the patient becomes exceedingly somnolent when she is administered her baseline psychiatric medications. The patient appears to be on a scheduled benzodiazepine 3 times a day and also receives clozapine 3 times per day and Risperdal at night. Plain film chest x-ray from yesterday revealed no focal infiltrate or consolidation. The patient is afebrile and hemodynamically stable. She is maintaining appropriate oxygen saturations on nasal cannula. Infectious work-up during this hospitalization was once again unrevealing. Arterial blood gas obtained on 3 L/min via nasal cannula yesterday revealed a pH of 7.41 with a corresponding PCO2 of 52 and PO2 of 65. Past Medical History Past Medical History (Chronic Problems): Chronic Problems COPD (chronic obstructive pulmonary disease) (Chronic) Hyperlipidemia (Chronic) Diabetes mellitus type 2 in obese (Chronic) HTN (hypertension) (Chronic) Schizophrenia (Chronic) Allergies No Known Allergies Allergy (Verified 11/06/19 15:26) Home Medications: Ambulatory Orders Medication Instructions Recorded Clozapine [Clozaril] 100 mg PO LUNCH 03/28/14 Risperidone [Risperdal] 2 mg PO QHS 03/28/14 glipiZIDE [Glucotrol] 5 mg PO BIDAC 03/28/14 metFORMIN HCl [Glucophage] 1,000 mg PO BID 03/28/14 Clozapine [Clozaril] 300 mg PO QHS 12/23/14 Insulin Glargine [Lantus SoloStar 42 units SC DAILY 12/23/14 Pen] Desvenlafaxine Succinate [Pristiq] 50 mg PO DAILY 07/25/15 Risperidone Microspheres 50 mg IM Q14D 07/25/15 [Risperdal Consta] Pravastatin Sodium 20 mg PO QHS 12/18/16 Clozapine [Clozaril] 200 mg PO DINNER 10/11/17 Potassium Chloride [K-Dur] 20 meq PO DAILY #30 tab 10/16/17 Cholecalciferol (Vitamin D3) 1,000 unit PO DAILY 10/17/17 [Vitamin D3] [place]-3 Fatty Acids/Fish Oil [Fish 1 each PO DAILY 10/17/17 Oil 1,000 mg Capsule] Albuterol IH (ProAir) [Proair Hfa] 2 puff INHALATION PRN PRN 07/22/18 Aspirin [Aspirin EC] 325 mg PO DAILY 07/22/18 Clonazepam [Klonopin] 0.5 mg PO BREAKFAST 07/22/18 Clonazepam [Klonopin] 0.5 mg PO QHS 07/22/18 Clonazepam [Klonopin] 1 mg PO 1200 07/22/18 Ferrous Gluconate 325 mg PO BIDCM 07/22/18 Fluticasone/Vilanterol [Breo 1 puff IH DAILY 07/22/18 Ellipta 100-25 Mcg INH] Furosemide [Lasix] 20 mg PO DAILY 07/22/18 Lubiprostone [Amitiza] 24 mcg PO BID 07/22/18 Acetaminophen [Mapap] 500 - 1,000 mg PO TID PRN PRN 10/31/19 Magnesium Hydroxide [Milk Of 30 ml PO DAILY PRN PRN 10/31/19 Magnesia] Omeprazole 20 mg PO DAILY 10/31/19 Oxymetazoline HCl [Nasal Relief] 2 spray NS PRN PRN 10/31/19 Pramipexole Di-HCl [Mirapex] 0.5 mg PO QHS 10/31/19 Umeclidinium Mutual Inhaler 1 puff IH DAILY 10/31/19 [Incruse Ellipta Inhaler] Wheat Dextrin [Benefiber] 15 ml PO DAILY 10/31/19 Amox/Clavulanate Tablet [Augmentin 875 mg PO Q12 tab 11/09/19 Tablet] Benzonatate [Tessalon Perle] 100 mg PO Q8H PRN PRN #12 cap 11/09/19 Prednisone 10 mg PO UD #30 tab 11/09/19 Surgical History: cholecystectomy, - - Jaw surgery Psychiatric History: Anxiety, Depression, Schizophrenia NON DESTRUCTIVE TESTER History: No pertinent NON DESTRUCTIVE TESTER history Lives: Longterm Smoking Status: Former smoker - *Family History Paternal History Items: Cancer, COPD, - - from a farm accident Maternal History Items: Heart Disease, - Review of Systems Constitutional: Denies: Chills, Fever Eyes: Denies: Blurred vision, Double vision HEENT: Denies: Head Aches, Sinus Congestion, Sinus Drainage Cardiovascular: Denies: Chest Pain, Palpitations Respiratory: Reports: Cough, Shortness of Breath Gastrointestinal: Denies: Abdominal Pain, Nausea, Vomiting Genitourinary: Denies: Dysuria Musculoskeletal: Denies: Joint Pain, Joint Tenderness Skin: Denies: Rash, Wounds Neurological: Denies: Numbness, Tingling, Focal weakness Psychiatric: Reports: Anxiety Hematologic/ Lymphatic: Denies: Easy Bruising, Easy Bleeding Patient Problems: Active and Suspected Problems COPD exacerbation (Acute) Elevated troponin (Acute) Anxiety attack (Acute) Objective: The patient's most recent lab work, culture data and imaging studies have all been personally reviewed. - Physical Exam Vitals/I&O's: Vital Signs Temp Pulse Resp BP Pulse Ox 97.4 F L 100 22 H 118/74 91 11/12/19 00:00 11/12/19 06:00 11/12/19 06:00 11/12/19 06:00 11/12/19 06:00 Oxygen Flow Rate (L/min) 6 Oxygen Delivery Method Nasal Cannula Weight: 181 lb 7.047 oz Body Mass Index (BMI) 37.3 Intake and Output for Last 24 Hours 01/11/11/19 11/12/19 23:59 23:59 23:59 Intake Total 150 / 220 820 / 1060 340 / 340 Output Total 200 / 400 1000 / 1600 900 / 900 Balance -50 / -180 -180 / -540 -560 / -560 General: - - The patient is still somewhat somnolent but will arouse and attempt to answer questions. HEENT: Atraumatic, PERRLA, Normocephalic Oral: No Gingival or Mucosal Lesions/ Ulcerations Neck: Supple, No Nodes, Trachea Midline Lungs: Diminished, - - Poor patient dependent inspiratory effort Cardiovascular: Regular rate, Regular Rhythm, Normal S1, Normal S2, No murmurs Abdomen: Bowel Sounds Present, Soft, Non Tender, Obese Extremities: No clubbing, No cyanosis Skin: No breakdown Musculoskeletal: No Tenderness to Palpation of Joints or Extremities Lymphatic: No Cervical, Supraclavicular, or Inguinal Adenopathy Neurological: - - No focal neurological deficits. Psych/Mental Status: Flat Affect Labs (Last 48 Hours) 11/10/19 11/10/19 11/10/19 06:42 10:57 16:18 Specimen Type Sample Site pH Bicarbonate Actual POC Total CO2 Base Excess O2 Saturation ABG pCO2 ABG pO2 Mariano Test O2 Delivery Device Liter Flow Blood Gas Notified Whom Blood Gas Notified Time B-Natriuretic Peptide POC Glucose 124 H 131 H 423 H 11/10/19 11/11/19 11/11/19 21:25 06:35 11:15 Specimen Type Sample Site pH Bicarbonate Actual POC Total CO2 Base Excess O2 Saturation ABG pCO2 ABG pO2 Mariano Test O2 Delivery Device Liter Flow Blood Gas Notified Whom Blood Gas Notified Time B-Natriuretic Peptide POC Glucose 155 H 150 H 208 H 11/11/19 11/11/19 11/11/19 16:04 16:51 17:30 Specimen Type ART Sample Site R Radial pH 7.41 Bicarbonate Actual 33.1 H POC Total CO2 35 Base Excess 8 H O2 Saturation 92 L ABG pCO2 52.4 H ABG pO2 65 L Mariano Test POS O2 Delivery Device Nasal Can Liter Flow 3.0 Blood Gas Notified Whom [facility] Blood Gas Notified Time 1603 B-Natriuretic Peptide 2.8 POC Glucose 354 H 11/11/19 20:35 Specimen Type Sample Site pH Bicarbonate Actual POC Total CO2 Base Excess O2 Saturation ABG pCO2 ABG pO2 Mariano Test O2 Delivery Device Liter Flow Blood Gas Notified Whom Blood Gas Notified Time B-Natriuretic Peptide POC Glucose 327 H Microbiology 11/11/19 16:40 Urine, Random Legionella Antigen - Final 11/11/19 16:40 Urine, Random Streptococcus pneumoniae Antigen (M - Final Clinical Impression(s) from Imaging Studies Chest X-Ray 11/06/19 15:34 IMPRESSION: Near complete clearing of bilateral pulmonary infiltrates evident on the prior study. Electronically Signed: Kash Chua MD ([place]) at 16:31 EST , Service support , Chest X-Ray 11/11/19 15:39 IMPRESSION: Improving inspiration and improving infiltrates of the left upper and lower lung zones now with minimal infiltrates in the left lower lobe, approaching baseline appearance of October 26, 2015. Electronically Signed: Kiersten Murdock MD at 16:21 EST , Service support , Current Medications Acetaminophen (Tylenol) 650 mg PO Q6H PRN PRN PRN Reason: Pain Score 1-3/Temp > 100.7 F Last Admin: 11/11/19 12:31 Dose: 650 mg Documented by: Albuterol Sulfate (Ventolin Aerosols) 2.5 mg INHALATION Q2H PRN PRN PRN Reason: SHORTNESS OF BREATH Last Admin: 11/08/19 09:12 Dose: 2.5 mg Documented by: Albuterol/Ipratropium (Duoneb) 3 ml INHALATION Q4HWA.RT [facility] Last Admin: 11/12/19 05:55 Dose: 3 ml Documented by: Aspirin (Ecotrin) 325 mg PO DAILY [facility] Last Admin: 11/11/19 09:30 Dose: 325 mg Documented by: Benzonatate (Tessalon Perle) 100 mg PO Q8H PRN PRN PRN Reason: COUGH Last Admin: 11/12/19 00:35 Dose: 100 mg Documented by: Clonazepam (Klonopin) 0.5 mg PO BREAKFAST [facility] Last Admin: 11/11/19 09:32 Dose: 0.5 mg Documented by: Clonazepam (Klonopin) 1 mg PO 1200 [facility] Last Admin: 11/11/19 11:19 Dose: 1 mg Documented by: Clonazepam (Klonopin) 0.5 mg PO QHS [facility] Last Admin: 11/11/19 20:27 Dose: 0.5 mg Documented by: Clozapine (Clozaril) 100 mg PO LUNCH [facility] Last Admin: 11/11/19 11:20 Dose: 100 mg Documented by: Clozapine (Clozaril) 200 mg PO DINNER [facility] Last Admin: 11/11/19 17:05 Dose: 200 mg Documented by: Clozapine (Clozaril) 300 mg PO QHS [facility] Last Admin: 11/11/19 20:26 Dose: 300 mg Documented by: Dextrose (D50w Syringe) 0 gm IV X1 PRN; Protocol PRN Reason: Hypoglycemia Doxycycline Monohydrate (Doxycycline) 100 mg PO BID [facility] Last Admin: 11/11/19 21:12 Dose: 100 mg Documented by: Enoxaparin Sodium (Lovenox) 40 mg SC DAILY [facility] Last Admin: 11/11/19 09:31 Dose: 40 mg Documented by: Ferrous Gluconate (Ferrous Gluconate) 324 mg PO DAILY@0800 [facility] Furosemide (Lasix) 20 mg PO DAILY [facility] Last Admin: 11/11/19 09:29 Dose: 20 mg Documented by: Glipizide (Glucotrol) 5 mg PO BIDAC [facility] Last Admin: 11/11/19 17:04 Dose: 5 mg Documented by: Glucagon () 1 mg IM .X1 PRN PRN Reason: Hypoglycemia Guaifenesin (Mucinex) 1,200 mg PO BID [facility] Last Admin: 11/11/19 20:24 Dose: 1,200 mg Documented by: Sodium Chloride () 250 mls @ 15 mls/hr IV .[id number] PRN PRN Reason: Saline Flush Insulin Glargine (Lantus (Bkc)) 50 units SC 1100 [facility] Insulin Human Lispro (Humalog Kwikpen (Bkc)) 0 unit SC ACHS [facility]; Protocol Last Admin: 11/11/19 20:40 Dose: 8 unit Documented by: Labetalol HCl (Trandate) 10 mg IV Q4H PRN PRN PRN Reason: SBP > 160 Lubiprostone (Amitiza) 24 mcg PO BID [facility] Last Admin: 11/11/19 20:26 Dose: 24 mcg Documented by: Methylprednisolone (Solu-Medrol) 40 mg IV Q8 [facility] Last Admin: 11/11/19 20:20 Dose: 40 mg Documented by: Ondansetron HCl (Zofran) 4 mg IV Q8H PRN PRN PRN Reason: NAUSEA/VOMITING Oxymetazoline HCl (Afrin (Bkc)) 2 spray NS BID PRN PRN PRN Reason: CONGESTION Pantoprazole Sodium (Protonix) 20 mg PO DAILY [facility] Last Admin: 11/11/19 09:31 Dose: 20 mg Documented by: Potassium Chloride (K-Dur) 20 meq PO DAILYCM [facility] Last Admin: 11/11/19 09:29 Dose: 20 meq Documented by: Pramipexole Dihydrochloride (Mirapex) 0.5 mg PO QHS [facility] Last Admin: 11/11/19 21:12 Dose: 0.5 mg Documented by: Pravastatin Sodium (Pravachol) 20 mg PO QHS [facility] Last Admin: 11/11/19 20:27 Dose: 20 mg Documented by: Risperidone (Risperdal) 2 mg PO QHS [facility] Last Admin: 11/11/19 20:27 Dose: 2 mg Documented by: Senna/Docusate Sodium (Senokot-S, Celia-Colace) 2 tablet PO BID PRN PRN PRN Reason: Constipation Last Admin: 11/09/19 22:09 Dose: 2 tablet Documented by: Sodium Chloride () 10 - 40 ml IV UD PRN PRN Reason: SALINE FLUSH Last Admin: 11/11/19 20:28 Dose: 10 ml Documented by: Venlafaxine HCl (Effexor Xr) 37.5 mg PO DAILY [facility] Last Admin: 11/11/19 09:29 Dose: 37.5 mg Documented by: Assessment/Plan Active and Suspected Problems COPD exacerbation (Acute) Elevated troponin (Acute) Anxiety attack (Acute) RECOMMENDATIONS: 1. Consider dose optimization at the patient's baseline schizophrenia medication regimen, as she appears to be oversedated. 2. Aspiration precautions. Consider speech therapy evaluation. 3. Continue bronchodilators and steroids. 4. Wean supplemental oxygen to maintain saturations at or above 90%. 5. Encourage aggressive incentive spirometer use and mobilize patient as tolerated. 6. Continue nocturnal Pap therapy per home regimen. 7. The patient can be transferred out of the intensive care unit from my perspective. 8. If further evaluation of the patient's pulmonary status is warranted, consultation should be placed to the patient's primary retail account executive, Dr. Ramirez. IMPRESSIONS: 1. Acute on chronic combined respiratory failure The patient has now been admitted to the hospital for 6 days after having presented with shortness of breath. She has been on treatment for a presumptive COPD exacerbation of unclear precipitating etiology. All of her infectious work-up has been unrevealing. She apparently decompensated from a respiratory perspective on the evening of November 11, which prompted the use of rescue BiPAP and transfer to the ICU. The exact severity of the patient's baseline lung disease is unknown, as she is followed by Dr. Ramirez on an outpatient basis. However, she apparently has a baseline 3 L/min oxygen requirement. The patient becomes quite somnolent when she is administered her currently prescribed psychiatric medication regimen, which includes a benzodiazepine 3 times a day. Clozapine 3 times a day and Risperdal nightly. I highly suspect that the patient is oversedated from the aforementioned medications and may be experiencing microaspiration events as a consequence. Therefore, I would recommend potential dose optimization of these medications. I will defer this to the hospitalist. She may benefit from a speech therapy evaluation. Recommend placing her in aspiration precautions. For now, continue bronchodilators and steroids as ordered. I do not see that the patient has any further ICU needs. Therefore, I would recommend consultation to the patient's primary retail account executive, Dr. Ramirez. 2. History of heart failure with preserved ejection fraction Continue diuretic therapy as ordered. 3. History of schizophrenia Consider dose de-escalation of the patient's baseline medications, as she appears to be becoming oversedated with administration. 4. Obstructive sleep apnea Continue nocturnal Pap therapy per home regimen. 5. 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 Continue home medications as indicated. This note was generated with [employer] software. It may contain incorrect words, spelling, and punctuation that were not noted in checking the note before signing. Code Visit Inpatient E&M: 89356 Init Hosp L3
[2019-11-12] MEDS: 0.9% Saline Lock 10 ML Syringe IV ×4 (06:37→21:57)
[2019-11-12] MEDS: Insulin Lispro 100 UNIT/ML INSULN.PEN SC ×4 (06:46→21:58)
[2019-11-12 06:50] LABS: Bedside Glucose 290 mg/dL (70-110)
--- NOTE | 2019-11-12 07:43 | PCM.PN.HOSP ---
Patient Problems: Active and Suspected Problems COPD exacerbation (Acute) Elevated troponin (Acute) Anxiety attack (Acute) Reason for Visit: Altered mental status/acute hypoxic respiratory failure Objective: Patient is on multiple antipsychotic medication secondary to schizophrenia and is sedated. She momentarily opens eyes on verbal command. She was put on BiPAP at night but patient refused and then put on 5 L of oxygen. Rate in 90s. Blood pressure is maintained no fever Patient has intermittent nonproductive cough and unable to bring up phlegm. Vitals/I&O's: Vital Signs Temp Pulse Resp BP Pulse Ox 97.4 F L 94 14 117/75 94 11/12/19 00:00 11/12/19 07:00 11/12/19 07:00 11/12/19 07:00 11/12/19 07:00 Oxygen Flow Rate (L/min) 5 Oxygen Delivery Method Nasal Cannula Weight: 181 lb 7.047 oz Body Mass Index (BMI) 37.3 Intake and Output for Last 24 Hours 11/10/19 11/11/19 11/12/19 23:59 23:59 23:59 Intake Total 150 / 220 820 / 1060 340 / 340 Output Total 200 / 400 1000 / 1600 900 / 900 Balance -50 / -180 -180 / -540 -560 / -560 General: Lethargic, - HEENT: Atraumatic - Sedated, EOMI, Normocephalic, - - Pupils bilaterally are small Oral: No Gingival or Mucosal Lesions/ Ulcerations, Dry Mucosa, - - Deep pharyngeal mucosa is dry. No inflammation. No obvious coughing or gagging on tactile reflex by touching soft palate with tongue depression Neck: Supple, No JVD, Negative Carotid Bruits Lungs: Diminished - Air entry is diminished., - - Decreased inspiratory effort. Upper airway thick secretions. Cardiovascular: Regular rate, Regular Rhythm, Normal S1, Normal S2, No murmurs Abdomen: Bowel Sounds Present, Soft, Non Tender, Non-Distended Extremities: No edema, Capillary Refill Less than 3 Seconds Skin: No rashes, No breakdown Musculoskeletal: Arthritic Changes, Muscle Wasting Lymphatic: No Cervical, Supraclavicular, or Inguinal Adenopathy Neurological: Cranial nerves II-XII grossly intact, Deep Tendon Reflexes 2+/4 and Symmetrical, Neuro grossly intact Microbiology Past 72 Hours 11/11/19 16:40 Urine, Random Legionella Antigen - Final 11/11/19 16:40 Urine, Random Streptococcus pneumoniae Antigen (M - Final 11/07/19 10:00 Urine, Clean Catch Urine Culture - Final Culture exhibits no growth. 11/07/19 00:55 Blood Culture (Wb) - Anticubital Left Blood Culture - Preliminary No growth in 48 hours. 11/07/19 00:35 Blood Culture (Wb) - Anticubital Right Blood Culture - Preliminary No growth in 48 hours. Laboratory Results 11/11/19 11:15: POC Glucose 208 H 11/11/19 16:04: Specimen Type ART, Sample Site R Radial, pH 7.41, Bicarbonate Actual 33.1 H, POC Total CO2 35, Base Excess 8 H, O2 Saturation 92 L, ABG pCO2 52.4 H, ABG pO2 65 L, Mairano Test POS, O2 Delivery Device Nasal Can, Liter Flow 3.0, Blood Gas Notified Whom [facility] , Blood Gas Notified Time 1603 11/11/19 16:51: POC Glucose 354 H 11/11/19 17:30: B-Natriuretic Peptide 2.8 11/11/19 20:35: POC Glucose 327 H 11/12/19 06:38: POC Glucose 290 H Current Medications Acetaminophen (Tylenol) 650 mg PO Q6H PRN PRN PRN Reason: Pain Score 1-3/Temp > 100.7 F Last Admin: 11/11/19 12:31 Dose: 650 mg Documented by: Albuterol Sulfate (Ventolin Aerosols) 2.5 mg INHALATION Q2H PRN PRN PRN Reason: SHORTNESS OF BREATH Last Admin: 11/08/19 09:12 Dose: 2.5 mg Documented by: Albuterol/Ipratropium (Duoneb) 3 ml INHALATION Q4HWA.RT JAQUI Last Admin: 11/12/19 05:55 Dose: 3 ml Documented by: Aspirin (Ecotrin) 325 mg PO DAILY JAQUI Last Admin: 11/11/19 09:30 Dose: 325 mg Documented by: Benzonatate (Tessalon Perle) 100 mg PO Q8H PRN PRN PRN Reason: COUGH Last Admin: 11/12/19 00:35 Dose: 100 mg Documented by: Clozapine (Clozaril) 50 mg PO LUNCH JAQUI Clozapine (Clozaril) 100 mg PO DINNER JAQUI Clozapine (Clozaril) 150 mg PO QHS [facility] Dextrose (D50w Syringe) 0 gm IV X1 PRN; Protocol PRN Reason: Hypoglycemia Doxycycline Monohydrate (Doxycycline) 100 mg PO BID COUNTS INCLUDE 234 BEDS AT THE [facility] Last Admin: 11/11/19 21:12 Dose: 100 mg Documented by: Enoxaparin Sodium (Lovenox) 40 mg SC DAILY COUNTS INCLUDE 234 BEDS AT THE [facility] Last Admin: 11/11/19 09:31 Dose: 40 mg Documented by: Ferrous Gluconate (Ferrous Gluconate) 324 mg PO DAILY@0800 COUNTS INCLUDE 234 BEDS AT THE [facility] Furosemide (Lasix) 20 mg PO DAILY COUNTS INCLUDE 234 BEDS AT THE [facility] Last Admin: 11/11/19 09:29 Dose: 20 mg Documented by: Glipizide (Glucotrol) 5 mg PO BIDAC COUNTS INCLUDE 234 BEDS AT THE [facility] Last Admin: 11/11/19 17:04 Dose: 5 mg Documented by: Glucagon () 1 mg IM .X1 PRN PRN Reason: Hypoglycemia Guaifenesin (Mucinex) 1,200 mg PO BID COUNTS INCLUDE 234 BEDS AT THE [facility] Last Admin: 11/11/19 20:24 Dose: 1,200 mg Documented by: Sodium Chloride () 250 mls @ 15 mls/hr IV .[id number] PRN PRN Reason: Saline Flush Insulin Glargine (Lantus (Bkc)) 50 units SC 1100 COUNTS INCLUDE 234 BEDS AT THE [facility] Insulin Human Lispro (Humalog Kwikpen (Bk)) 0 unit SC ACHS COUNTS INCLUDE 234 BEDS AT THE [facility]; Protocol Last Admin: 11/12/19 06:46 Dose: 6 unit Documented by: Labetalol HCl (Trandate) 10 mg IV Q4H PRN PRN PRN Reason: SBP > 160 Lubiprostone (Amitiza) 24 mcg PO BID COUNTS INCLUDE 234 BEDS AT THE [facility] Last Admin: 11/11/19 20:26 Dose: 24 mcg Documented by: Methylprednisolone (Solu-Medrol) 40 mg IV Q8 COUNTS INCLUDE 234 BEDS AT THE [facility] Last Admin: 11/12/19 06:36 Dose: 40 mg Documented by: Ondansetron HCl (Zofran) 4 mg IV Q8H PRN PRN PRN Reason: NAUSEA/VOMITING Oxymetazoline HCl (Afrin (Bk)) 2 spray NS BID PRN PRN PRN Reason: CONGESTION Pantoprazole Sodium (Protonix) 20 mg PO DAILY COUNTS INCLUDE 234 BEDS AT THE [facility] Last Admin: 11/11/19 09:31 Dose: 20 mg Documented by: Potassium [facility] ([facility]) [facility] Last Admin: 11/11/19 09:29 Dose: 20 meq Documented by: Pramipexole Dihydrochloride (Mirapex) 0.5 mg PO QHS COUNTS INCLUDE 234 BEDS AT THE [facility] Last Admin: 11/11/19 21:12 Dose: 0.5 mg Documented by: Pravastatin Sodium (Pravachol) 20 mg PO QHS COUNTS INCLUDE 234 BEDS AT THE [facility] Last Admin: 11/11/19 20:27 Dose: 20 mg Documented by: Senna/Docusate Sodium (Senokot-S, Celia-Colace) 2 tablet PO BID PRN PRN PRN Reason: Constipation Last Admin: 11/09/19 22:09 Dose: 2 tablet Documented by: Sodium Chloride () 10 - 40 ml IV UD PRN PRN Reason: SALINE FLUSH Last Admin: 11/12/19 06:37 Dose: 10 ml Documented by: Venlafaxine HCl (Effexor Xr) 37.5 mg PO DAILY COUNTS INCLUDE 234 BEDS AT THE [facility] Last Admin: 11/11/19 09:29 Dose: 37.5 mg Documented by: STROKE Vital Signs/Narrative: Vital Signs Pulse Resp BP Pulse Ox 11/12/19 07:00 94 14 117/75 94 11/12/19 06:00 100 22 H 118/74 91 11/12/19 05:56 99 24 H 91 11/12/19 05:00 106 H 24 H 126/79 H 89 11/12/19 04:00 100 19 H 132/84 H 93 Medical Necessity - Tobacco Use Smoking Status: Former smoker Assessment/Plan All Active Problems COPD exacerbation (Acute) Elevated troponin (Acute) Anxiety attack (Acute) This is a patient is a 53-year-old lady who presented with progressive shortness of breath and consistent with COPD exacerbation with chronic toxic respiratory failure with history of resistant to schizophrenia on multiple antipsychotic medications, clozapine, clonazepam, risperidone and venlafaxine. Patient also has chronic pain. Patient was found to have elevated troponin attributed to demand ischemia 1. Acute on chronic hypoxic respiratory failure secondary to COPD with acute exacerbation ?Managed with aerosol treatment and steroid as well as antibiotics in addition to supplemental oxygen. Initially, patient is on 3 L of oxygen. She was mostly Continue bronchodilator and steroid. plan is for patient to be transferred to a facility capable of handling patient needing continuous oxygen. Patient cannot go back to senior care as they cannot manage patient on continuous oxygen. On doxycycline added 11/12/2019: Patient was moved to ICU yesterday evening. Started on BiPAP but patient kept refusing. It was switched to 5 L of oxygen. Mucinex, incentive spirometry and chest physiotherapy. On Solu-Medrol 40 mg IV every 8 hourly. Prednisone discontinued. Discussed with lathe set up person. The patient's executive associate was Dr. Ramirez. Labs ordered. On review of previous admission, patient had history of smoking about 3 packs a day for 20 years and quit in January in 2013. She had multiple admissions in the past for COPD exacerbation, failure to thrive, last admission 10/31/2021 11/02/2019 for pneumonia and patient completed 7 days of antibiotic. 2. Elevated troponin secondary from demand ischemia ?Medical management only 3. Anxiety attack ? is on Klonopin 4. Chronic diastolic congestive heart failure - stable 5. Diabetes mellitus type 2 with complications including hyperglycemia; - Accu-Cheks before meals and at bedtime with sliding scale coverage addition to scheduled long-acting insulin 11/11: Long-acting insulin, Lantus increased to 50 units daily. 6. Obstructive sleep apnea - patient is on CPAP at night 7. Acute encephalopathy on baseline schizophrenia probably exacerbated by multiple antipsychotic medications: Patient is on clozapine, clonazepam, Effexor and Risperdal. Clonazepam, Effexor and Risperdal discontinued. Clozapine dose decreased with holding parameters if patient is lethargic or sedated - 8. Dyslipidemia -patient is on statin therapy, continued at home dose 9. Obesity with BMI of 37 10. DVT prophylaxis SC Lovenox Total time of the visit including total time spent in counseling or coordination of care, (more than 50% of the total time, spent in obtaining medical information from nurses and other ancillary care providers), previous medical record, review of labs and imaging is 40 minutes Microbiology Past 72 Hours 11/07/19 00:35 Blood Culture (Wb) - Anticubital Right Blood Culture - Final No growth in 5 days. 11/07/19 00:55 Blood Culture (Wb) - Anticubital Left Blood Culture - Final No growth in 5 days. 11/11/19 16:40 Urine, Random Legionella Antigen - Final 11/11/19 16:40 Urine, Random Streptococcus pneumoniae Antigen (M - Final 11/07/19 10:00 Urine, Clean Catch Urine Culture - Final Culture exhibits no growth. Laboratory Results 11/11/19 11:15: POC Glucose 208 H 11/11/19 16:04: Specimen Type ART, Sample Site R Radial, pH 7.41, Bicarbonate Actual 33.1 H, POC Total CO2 35, Base Excess 8 H, O2 Saturation 92 L, ABG pCO2 52.4 H, ABG pO2 65 L, Mariano Test POS, O2 Delivery Device Nasal Can, Liter Flow 3.0, Blood Gas Notified Whom HOSP , Blood Gas Notified Time 1603 11/11/19 16:51: POC Glucose 354 H 11/11/19 17:30: B-Natriuretic Peptide 2.8 11/11/19 20:35: POC Glucose 327 H 11/12/19 06:38: POC Glucose 290 H Code Visit Inpatient E&M: 05447 Subs Hosp L3
[2019-11-12] MEDS: Ferrous Gluconate 324 MG Tablet PO (08:36)
[2019-11-12] MEDS: Doxycycline 100 MG CAPSULE PO ×2 (08:36→21:57)
[2019-11-12] MEDS: glipiZIDE 5 MG Tablet PO ×2 (08:37→16:32)
[2019-11-12] MEDS: Lubiprostone 24 MCG Capsule PO ×2 (08:37→21:56)
[2019-11-12] MEDS: Aspirin E.C. 325 MG Tablet PO (08:38)
[2019-11-12] MEDS: Furosemide 20 MG Tablet PO (08:38)
[2019-11-12] MEDS: Enoxaparin 40 MG/0.4 ML Syringe SC (08:38)
[2019-11-12] MEDS: Pantoprazole Sodium 20 MG Tablet PO (08:38)
[2019-11-12] MEDS: guaiFENesin 1,200 MG Tablet 1200 MG PO ×2 (08:38→21:57)
[2019-11-12 08:45] LABS: Absolute Neutrophil Count 10.8 X10^3/uL (2.0-7.7); Basophil# 0.03 X10^3/uL; Basophil% 0.2 % (0-1); Hematocrit 41.9 % (37-47); Hemoglobin 13.5 g/dL (12.0-15.0); Lymphocyte % 17.2 % (19-41); Mean Corp Hgb Conc 32.2 g/dL (32-36); Mean Corpuscular Hgb 29.4 pg (27.0-32.0); Mean Corpuscular Volume 91.3 fL (81-99); Mean Platelet Vol. 9.4 fl (6.2-12.0); Monocyte# 0.48 X10^3/uL; Monocyte% 3.4 % (0-10); NRBC Flagged by Analyzer 0 % (0-5); Neutrophil # 10.83 X10^3/uL (2.7-7.7); Neutrophil % 77.8 % (47-70); Platelet Count 230 K/mm3 (150-450); RBC Distribution Width CV 13.4 % (11.6-14.6); RBC Distribution Width SD 45.1 fl (35.1-43.9); Red Blood Count 4.59 M/mm3 (4.2-5.4); White Blood Count 13.9 K/mm3 (4.4-11.0)
[2019-11-12 08:58] LABS: BUN 20 mg/dL (7-18); Creatinine, Serum 0.57 mg/dL (0.55-1.02); Estimated Creatinine Clearance 84.15 ml/min; Glucose 252 mg/dL (74-106)
[2019-11-12 08:59] LABS: ALB/GLOB Ratio 0.7 RATIO (0.9-2.4); AST(SGOT) 7 U/L (15-37); Alanine Aminotransfer ALT/SGPT 36 U/L (13-56); Albumin, Serum 3.3 g/dL (3.2-5.0); Alkaline Phosphatase 108 U/L (45-117); Anion Gap 3 (5-15); BUN/Creat Ratio 34.8 RATIO (10-20); Calcium,Total 9.3 mg/dL (8.5-10.1); Chloride 100 mmol/L (98-107); EST Glomerular Filtration Rate 116 mL/min (>60); Est Glom Filt Rate - Afr Amer 140 mL/min (>60); Globulin 4.9 g/dL (2.2-4.2); Magnesium 2.3 mg/dL (1.6-2.6); Phosphorus 2.8 mg/dL (2.5-4.9); Potassium 3.9 mmol/L (3.5-5.1); Protein, Total 8.2 g/dL (6.4-8.2); Sodium Level 136 mmol/L (136-145)
[2019-11-12] MEDS: Oseltamivir Phosphate 75 MG Capsule PO ×2 (11:27→21:56)
[2019-11-12] MEDS: Insulin Lispro 100 UNIT/ML INSULN.PEN 8 UNIT SC ×2 (11:28→16:31)
[2019-11-12 11:35] LABS: Bedside Glucose 368 mg/dL (70-110)
--- NOTE | 2019-11-12 12:25 | CASEMGMT ---
JONNY spoke w/Daisha, pt was approved to go to TCU on the weekend. JONNY called pt's guardian Melony Willard, let her know pt was approved to go to TCU on the weekend. Melony asked how long pt can be in TCU, JONNY explained it's really up to insurance as to how long they will authorize. If pt does well with PT but still needs the oxygen, the SW in TCU will work with her and pt to find what would be the most appropriate plan after TCU. Melony asked why [facility] would not take pt. JONNY explained that as per JONNY Maddi, they were concerned about her discharge from [facility] and where she would go after. They are also not open to taking pt for terminal gauger as Eva told Maddi they did not think she was appropriate for terminal gauger. JONNY explained that another snf may very well consider pt for terminal gauger however. Melony states understanding. Green sheet placed on chart in anticipation of weekend discharge to TCU. MATTHEW Meyer
--- NOTE | 2019-11-12 13:06 | CASEMGMT ---
Social Work Note JONNY spoke with pt's vocational case manager Haylee at [facility] and updated her that pt has been approved for TCU and will likely be discharged there over the weekend. Conchis states she began to look at additional options for pt in the event pt is not able to return to alf. Haylee states that if extermination inspector SNF is needed, then she would like to try [facility] and states that she has discussed this with pt's legal guardian Melony as well. JONNY updated Haylee that there will be a SW on TCU that will be working with Conchis and Melony in regards to what pt will need at discharge and that SW could look into extermination inspector for pt if that is what is needed. Leola states understanding. Plan: TCU once medically cleared Maddi Tony PERSONAL LINES UNDERWRITER, BACTERIOLOGIST MEDICAL
[2019-11-12] MEDS: Acetaminophen 325 MG Tablet 650 MG PO (13:34)
[2019-11-12 18:05] LABS: Bedside Glucose 321 mg/dL (70-110)
[2019-11-12] MEDS: Pramipexole Di-HCl 0.5 MG Tablet PO (21:56)
[2019-11-12] MEDS: Glycerin/Hypromellose/PEG400 15 ml Bottle 2 DRP EACH EYE (21:57)
[2019-11-12] MEDS: Pravastatin 20 MG Tablet PO (21:57)
--- NOTE | 2019-11-12 21:58 | CPS ---
patient refused to wear bipap.
[2019-11-12 23:51] LABS: Bedside Glucose 206 mg/dL (70-110)
[2019-11-13] VITALS (8 sets, daily range): BP systolic 109–131; BP diastolic 66–81; PULSE 90–116; RESP 18–20; TEMP 35.7–36.7; O2SAT 90–97
[2019-11-13] MEDS: 0.9% Saline Lock 10 ML Syringe IV ×2 (05:32→12:43)
[2019-11-13] MEDS: Ipratropium/Albuterol Sulfate 3 ML AMPUL.NEB INHALATION ×4 (06:53→19:20)
[2019-11-13 07:45] LABS: Bedside Glucose 164 mg/dL (70-110)
--- NOTE | 2019-11-13 08:35 | NURSING ---
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
[2019-11-13] MEDS: Insulin Lispro 100 UNIT/ML INSULN.PEN 8 UNIT SC ×2 (08:37→11:27)
[2019-11-13] MEDS: Insulin Lispro 100 UNIT/ML INSULN.PEN SC ×3 (08:38→17:31)
[2019-11-13] MEDS: Lubiprostone 24 MCG Capsule PO ×2 (08:40→20:31)
[2019-11-13] MEDS: Ferrous Gluconate 324 MG Tablet PO (08:40)
[2019-11-13] MEDS: glipiZIDE 5 MG Tablet PO ×2 (08:40→17:32)
[2019-11-13] MEDS: Aspirin E.C. 325 MG Tablet PO (08:41)
[2019-11-13] MEDS: Doxycycline 100 MG CAPSULE PO ×2 (08:41→20:32)
[2019-11-13] MEDS: Furosemide 20 MG Tablet PO (08:42)
[2019-11-13] MEDS: guaiFENesin 1,200 MG Tablet 1200 MG PO ×2 (08:43→20:32)
[2019-11-13] MEDS: Pantoprazole Sodium 20 MG Tablet PO (08:43)
[2019-11-13] MEDS: Oseltamivir Phosphate 75 MG Capsule PO ×2 (08:43→20:33)
[2019-11-13] MEDS: Enoxaparin 40 MG/0.4 ML Syringe SC (10:10)
[2019-11-13] MEDS: Benzonatate 100 MG Capsule PO (10:13)
[2019-11-13 11:30] LABS: Bedside Glucose 317 mg/dL (70-110)
--- NOTE | 2019-11-13 12:27 | PCM.PN.HOSP ---
Patient Problems: Active and Suspected Problems COPD exacerbation (Acute) Elevated troponin (Acute) Anxiety attack (Acute) Reason for Visit: COPD exacerbation, medication side effect/oversedation from antipsychotic medication Vitals/I&O's: Vital Signs Temp Pulse Resp BP Pulse Ox 97.3 F L 116 H 20 H 115/66 91 11/13/19 08:34 11/13/19 10:35 11/13/19 10:35 11/13/19 08:34 11/13/19 08:34 Oxygen Flow Rate (L/min) 5 Oxygen Delivery Method Nasal Cannula Weight: 178 lb 9.191 oz Body Mass Index (BMI) 37.3 Intake and Output for Last 24 Hours 11/11/19 11/12/19 11/13/19 23:59 23:59 23:59 Intake Total 820 / 1060 1180 / 1180 120 / 120 Output Total 1000 / 1600 1350 / 1350 Balance -180 / -540 -170 / -170 120 / 120 General: Alert, Cooperative, Confused, Disoriented HEENT: Atraumatic, PERRLA, EOMI, Normocephalic Oral: Dry Mucosa Neck: Supple, No JVD, Negative Carotid Bruits Lungs: Clear to auscultation, Diminished, Rales, Rhonchi, Wheezes Cardiovascular: Regular rate, Regular Rhythm, Normal S1, Normal S2, No murmurs Abdomen: Bowel Sounds Present, Soft, Non Tender, Non-Distended Extremities: No edema, Capillary Refill Less than 3 Seconds Skin: No rashes, No breakdown Musculoskeletal: No Tenderness to Palpation of Joints or Extremities, Arthritic Changes Neurological: Cranial nerves II-XII grossly intact Psych/Mental Status: Normal Affect, Appropriate Microbiology Past 72 Hours 11/11/19 15:40 Mucosa - Nasopharyngeal Respiratory Panel (PCR) - Final Influenzae B 11/07/19 00:35 Blood Culture (Wb) - Anticubital Right Blood Culture - Final No growth in 5 days. 11/07/19 00:55 Blood Culture (Wb) - Anticubital Left Blood Culture - Final No growth in 5 days. 11/11/19 16:40 Urine, Random Legionella Antigen - Final 11/11/19 16:40 Urine, Random Streptococcus pneumoniae Antigen (M - Final Laboratory Results 11/12/19 15:54: POC Glucose 321 H 11/12/19 21:53: POC Glucose 206 H 11/13/19 07:38: POC Glucose 164 H 11/13/19 11:22: POC Glucose 317 H Current Medications Acetaminophen (Tylenol) 650 mg PO Q6H PRN PRN PRN Reason: Pain Score 1-3/Temp > 100.7 F Last Admin: 11/12/19 13:34 Dose: 650 mg Documented by: Albuterol Sulfate (Ventolin Aerosols) 2.5 mg INHALATION Q2H PRN PRN PRN Reason: SHORTNESS OF BREATH Last Admin: 11/08/19 09:12 Dose: 2.5 mg Documented by: Albuterol/Ipratropium (Duoneb) 3 ml INHALATION Q4HWA.RT [facility] Last Admin: 11/13/19 10:35 Dose: 3 ml Documented by: Aspirin (Ecotrin) 325 mg PO DAILY [facility] Last Admin: 11/13/19 08:41 Dose: 325 mg Documented by: Benzonatate (Tessalon Perle) 100 mg PO Q8H PRN PRN PRN Reason: COUGH Last Admin: 11/13/19 10:13 Dose: 100 mg Documented by: Clonazepam (Klonopin) 0.5 mg PO Q8H PRN PRN PRN Reason: anxiety/restlessness Clozapine (Clozaril) 150 mg PO QHS [facility] Last Admin: 11/12/19 21:57 Dose: 150 mg Documented by: Clozapine (Clozaril) 100 mg PO LUNCH [facility] Clozapine (Clozaril) 150 mg PO DINNER [facility] Dextrose (D50w Syringe) 0 gm IV X1 PRN; Protocol PRN Reason: Hypoglycemia Doxycycline Monohydrate (Doxycycline) 100 mg PO BID [facility] Last Admin: 11/13/19 08:41 Dose: 100 mg Documented by: Enoxaparin Sodium (Lovenox) 40 mg SC DAILY [facility] Last Admin: 11/13/19 10:10 Dose: 40 mg Documented by: Ferrous Gluconate (Ferrous Gluconate) 324 mg PO DAILY@0800 [facility] Last Admin: 11/13/19 08:40 Dose: 324 mg Documented by: Furosemide (Lasix) 40 mg PO DAILY [facility] Glipizide (Glucotrol) 5 mg PO BIDAC [facility] Last Admin: 11/13/19 08:40 Dose: 5 mg Documented by: Glucagon () 1 mg IM .X1 PRN PRN Reason: Hypoglycemia Guaifenesin (Mucinex) 1,200 mg PO BID [facility] Last Admin: 11/13/19 08:43 Dose: 1,200 mg Documented by: Sodium Chloride () 250 mls @ 15 mls/hr IV .[id number] PRN PRN Reason: Saline Flush Insulin Glargine (Lantus (Bkc)) 60 units SC 1100 [facility] Last Admin: 11/13/19 11:28 Dose: 60 u Documented by: Insulin Human Lispro (Humalog Kwikpen (Bk)) 0 unit SC ACHS [facility]; Protocol Last Admin: 11/13/19 11:28 Dose: 6 unit Documented by: Insulin Human Lispro (Humalog Kwikpen (Bk)) 8 unit SC TIDAC [facility] Last Admin: 11/13/19 11:27 Dose: 8 u Documented by: Labetalol HCl (Trandate) 10 mg IV Q4H PRN PRN PRN Reason: SBP > 160 Lubiprostone (Amitiza) 24 mcg PO BID [facility] Last Admin: 11/13/19 08:40 Dose: 24 mcg Documented by: Methylprednisolone (Solu-Medrol) 40 mg IV Q8 [facility] Last Admin: 11/13/19 05:32 Dose: 40 mg Documented by: Ondansetron HCl (Zofran) 4 mg IV Q8H PRN PRN PRN Reason: NAUSEA/VOMITING Oseltamivir Phosphate (Tamiflu) 75 mg PO BID [facility] Stop: 11/16/19 22:01 Last Admin: 11/13/19 08:43 Dose: 75 mg Documented by: Oxymetazoline HCl (Afrin ([facility])) 2 spray NS BID PRN PRN PRN Reason: CONGESTION Pantoprazole Sodium (Protonix) 20 mg PO DAILY [facility] Last Admin: 11/13/19 08:43 Dose: 20 mg Documented by: Potassium Chlor[facility] ([facility]) [facility] Last Admin: 11/13/19 08:40 Dose: 20 meq Documented by: Pramipexole Dihydrochloride (Mirapex) 0.5 mg PO QHS [facility] Last Admin: 11/12/19 21:56 Dose: 0.5 mg Documented by: Pravastatin Sodium (Pravachol) 20 mg PO QHS [facility] Last Admin: 11/12/19 21:57 Dose: 20 mg Documented by: Risperidone (Risperdal) 1 mg PO DAILY [facility] Senna/Docusate Sodium (Senokot-S, Celia-Colace) 2 tablet PO BID PRN PRN PRN Reason: Constipation Last Admin: 11/09/19 22:09 Dose: 2 tablet Documented by: Sodium Chloride () 10 - 40 ml IV UD PRN PRN Reason: SALINE FLUSH Last Admin: 11/13/19 05:32 Dose: 20 ml Documented by: STROKE Vital Signs/Narrative: Vital Signs Temp Pulse Resp BP Pulse Ox 11/13/19 10:35 116 H 20 H 11/13/19 08:34 97.3 F L 94 20 H 115/66 91 Medical Necessity - Tobacco Use Smoking Status: Former smoker Assessment/Plan All Active Problems COPD exacerbation (Acute) Elevated troponin (Acute) Anxiety attack (Acute) This is a patient is a 53-year-old lady who presented with progressive shortness of breath and consistent with COPD exacerbation with chronic toxic respiratory failure with history of resistant to schizophrenia on multiple antipsychotic medications, clozapine, clonazepam, risperidone and venlafaxine. Patient also has chronic pain. Patient was found to have elevated troponin attributed to demand ischemia 1. Acute on chronic hypoxic respiratory failure secondary to COPD with acute exacerbation ?Managed with aerosol treatment and steroid as well as antibiotics in addition to supplemental oxygen. Initially, patient is on 3 L of oxygen. She was mostly Continue bronchodilator and steroid. plan is for patient to be transferred to a facility capable of handling patient needing continuous oxygen. Patient cannot go back to shelter as they cannot manage patient on continuous oxygen. On doxycycline added 11/12/2019: Patient was moved to ICU yesterday evening. Started on BiPAP but patient kept refusing. It was switched to 5 L of oxygen. Mucinex, incentive spirometry and chest physiotherapy. On Solu-Medrol 40 mg IV every 8 hourly. Prednisone discontinued. Discussed with extractor machine operator. The patient's director of medical services was Dr. Ramirez. Labs ordered. On review of previous admission, patient had history of smoking about 3 packs a day for 20 years and quit in January in 2013. She had multiple admissions in the past for COPD exacerbation, failure to thrive, last admission 10/31/2021 11/02/2019 for pneumonia and patient completed 7 days of antibiotic. 2: Shortness of breath. Lasix 20 mg IV 1 dose and then 40 mg daily from tomorrow a.m. Dr. Ramirez was called and left a voice message. His office was also called but closed on Friday. DC Solu-Medrol start prednisone 40 mg daily from tomorrow a.m. 2. Elevated troponin secondary from demand ischemia ?Medical management only 3. Chronic diastolic congestive heart failure - stable Chest x-ray does not show fluid overload. 4. Diabetes mellitus type 2 with complications including hyperglycemia; - Accu-Cheks before meals and at bedtime with sliding scale coverage addition to scheduled long-acting insulin 11/11: Long-acting insulin, Lantus increased to 50 units daily. 11/13: Glucose still elevated. Lantus increased to 60 units daily. 5. Obstructive sleep apnea - patient is on CPAP at night 6. Acute encephalopathy on baseline schizophrenia probably exacerbated by multiple antipsychotic medications: Patient is on clozapine, clonazepam, Effexor and Risperdal. Clonazepam, Effexor and Risperdal discontinued. Clozapine dose decreased with holding parameters if patient is lethargic or sedated 11/13: Patient is awake but confused and disoriented, anxious and restless. Patient dose of clozapine increased and put on Klonopin 0.5 mg every 8 hourly with meals and holding parameters and Risperdal 1 mg daily. 7. Dyslipidemia -patient is on statin therapy, continued at home dose 8. Obesity with BMI of 37 9. DVT prophylaxis SC Lovenox Total time of the visit including total time spent in counseling or coordination of care, (more than 50% of the total time, spent in obtaining medical information from nurses and other ancillary care providers), previous medical record, review of labs and imaging is 40 minutes Microbiology Past 72 Hours 11/07/19 00:35 Blood Culture (Wb) - Anticubital Right Blood Culture - Final No growth in 5 days. 11/07/19 00:55 Blood Culture (Wb) - Anticubital Left Blood Culture - Final No growth in 5 days. 11/11/19 16:40 Urine, Random Legionella Antigen - Final 11/11/19 16:40 Urine, Random Streptococcus pneumoniae Antigen (M - Final 11/07/19 10:00 Urine, Clean Catch Urine Culture - Final Culture exhibits no growth. Laboratory Results 11/11/19 11:15: POC Glucose 208 H 11/11/19 16:04: Specimen Type ART, Sample Site R Radial, pH 7.41, Bicarbonate Actual 33.1 H, POC Total CO2 35, Base Excess 8 H, O2 Saturation 92 L, ABG pCO2 52.4 H, ABG pO2 65 L, Mariano Test POS, O2 Delivery Device Nasal Can, Liter Flow 3.0, Blood Gas Notified Whom HOSP , Blood Gas Notified Time 7089 11/11/19 16:51: POC Glucose 354 H 11/11/19 17:30: B-Natriuretic Peptide 2.8 11/11/19 20:35: POC Glucose 327 H 11/12/19 06:38: POC Glucose 290 H Code Visit Inpatient E&M: 90306 Subs Hosp L3
[2019-11-13] MEDS: Furosemide 20 MG/2 ML VIAL IV (12:44)
[2019-11-13] MEDS: Acetaminophen 325 MG Tablet 650 MG PO (13:01)
[2019-11-13] MEDS: clonazePAM 0.5 MG Tablet PO ×2 (13:01→17:36)
[2019-11-13] MEDS: RisperiDONE 1 MG Tablet PO (13:01)
[2019-11-13 16:45] LABS: Bedside Glucose 220 mg/dL (70-110)
[2019-11-13] MEDS: Insulin Lispro 100 UNIT/ML INSULN.PEN 10 UNIT SC (17:30)
[2019-11-13] MEDS: Pravastatin 20 MG Tablet PO (20:32)
[2019-11-13] MEDS: Pramipexole Di-HCl 0.5 MG Tablet PO (20:32)
[2019-11-13 20:56] LABS: Bedside Glucose 122 mg/dL (70-110)
[2019-11-14] VITALS (14 sets, daily range): BP systolic 84–131; BP diastolic 49–87; PULSE 64–106; RESP 18–20; TEMP 36.3–36.6; O2SAT 2–96
[2019-11-14] MEDS: 0.9% Saline Lock 10 ML Syringe IV (03:30)
[2019-11-14 06:49] LABS: Absolute Lymphocyte Count 4.41 X10^3/uL (0.83-4.51); Basophil# 0.01 X10^3/uL; Basophil% 0.1 % (0-1); Eosinophil# 0.02 X10^3/uL; Eosinophils% 0.2 % (0-5); Hematocrit 39.4 % (37-47); Hemoglobin 12.5 g/dL (12.0-15.0); Lymphocyte # 4.41 X10^3/ul (4.0); Lymphocyte % 33.4 % (19-41); Mean Corp Hgb Conc 31.7 g/dL (32-36); Mean Corpuscular Hgb 28.7 pg (27.0-32.0); Mean Corpuscular Volume 90.6 fL (81-99); Mean Platelet Vol. 9.9 fl (6.2-12.0); Monocyte# 0.72 X10^3/uL; Monocyte% 5.5 % (0-10); NRBC Flagged by Analyzer 0 % (0-5); Neutrophil # 7.97 X10^3/uL (2.7-7.7); Neutrophil % 60.3 % (47-70); POSITIVE MORPHOLOGY YES; Platelet Count 199 K/mm3 (150-450); RBC Distribution Width CV 13.3 % (11.6-14.6); Red Blood Count 4.35 M/mm3 (4.2-5.4); White Blood Count 13.2 K/mm3 (4.4-11.0)
[2019-11-14 06:53] LABS: Differential Indicated SCAN CRITERIA MET
[2019-11-14] MEDS: Ipratropium/Albuterol Sulfate 3 ML AMPUL.NEB INHALATION ×3 (07:19→14:09)
[2019-11-14 07:20] LABS: Anion Gap 6 (5-15); BUN 22 mg/dL (7-18); Calcium,Total 8.4 mg/dL (8.5-10.1); Chloride 105 mmol/L (98-107); Creatinine, Serum 0.52 mg/dL (0.55-1.02); EST Glomerular Filtration Rate 129 mL/min (>60); Est Glom Filt Rate - Afr Amer 156 mL/min (>60); Estimated Creatinine Clearance 92.24 ml/min; Glucose 63 mg/dL (74-106); Potassium 3.2 mmol/L (3.5-5.1); Sodium Level 139 mmol/L (136-145)
[2019-11-14 07:54] LABS: Differential Comment SCANNED
[2019-11-14 07:55] LABS: Reactive Lymphocyte 1+
[2019-11-14] MEDS: predniSONE 20 MG Tablet 40 MG PO (07:59)
[2019-11-14] MEDS: clonazePAM 0.5 MG Tablet PO ×3 (07:59→16:38)
[2019-11-14 08:16] LABS: Bedside Glucose 60 mg/dL (70-110)
--- NOTE | 2019-11-14 08:32 | NURSING ---
pt awakens easily and drinks 4 oz of oj
[2019-11-14 09:31] LABS: Bedside Glucose 80 mg/dL (70-110)
[2019-11-14] MEDS: Doxycycline 100 MG CAPSULE PO ×2 (11:56→22:18)
[2019-11-14] MEDS: Lubiprostone 24 MCG Capsule PO ×2 (11:56→22:17)
[2019-11-14] MEDS: Aspirin E.C. 325 MG Tablet PO (11:57)
[2019-11-14] MEDS: Furosemide 40 MG Tablet PO (11:57)
[2019-11-14] MEDS: Enoxaparin 40 MG/0.4 ML Syringe SC (11:57)
[2019-11-14] MEDS: Pantoprazole Sodium 20 MG Tablet PO (11:58)
[2019-11-14] MEDS: guaiFENesin 1,200 MG Tablet 1200 MG PO ×2 (11:58→22:19)
[2019-11-14] MEDS: Oseltamivir Phosphate 75 MG Capsule PO ×2 (11:59→22:19)
[2019-11-14] MEDS: RisperiDONE 1 MG Tablet PO (12:04)
[2019-11-14 12:06] LABS: Bedside Glucose 218 mg/dL (70-110)
--- NOTE | 2019-11-14 12:17 | PCM.PN.HOSP ---
Patient Problems: Active and Suspected Problems COPD exacerbation (Acute) Elevated troponin (Acute) Anxiety attack (Acute) Reason for Visit: COPD exacerbation secondary to viral bronchitis, influenza B. Schizophrenia with side effects of sedation from high-dose Objective: Patient is awake alert and communicative. She is oriented x3. She follows verbal command and follows psychiatrist, Dr. Lorraine Springer Vitals/I&O's: Vital Signs Temp Pulse Resp BP Pulse Ox 97.5 F L 98 18 111/65 95 11/14/19 06:20 11/14/19 11:15 11/14/19 11:15 11/14/19 06:20 11/14/19 08:02 Oxygen Flow Rate (L/min) 4 Oxygen Delivery Method Nasal Cannula Weight: 179 lb 7.3 oz Body Mass Index (BMI) 37.3 Intake and Output for Last 24 Hours 11/12/19 11/13/19 11/14/19 23:59 23:59 23:59 Intake Total 1180 / 1180 940 / 940 310 / 310 Output Total 1350 / 1350 900 / 1050 150 / 150 Balance -170 / -170 40 / -110 160 / 160 General: Alert, Oriented x3, Cooperative HEENT: Atraumatic, PERRLA, EOMI, Normocephalic Neck: Supple, No JVD, Negative Carotid Bruits Lungs: No rales, Diminished - Air entry is diminished., Rhonchi - Chronic expiratory rhonchi Cardiovascular: Regular rate, Regular Rhythm, Normal S1, Normal S2, No murmurs Abdomen: Bowel Sounds Present, Soft, Non Tender, Non-Distended Extremities: No edema, Capillary Refill Less than 3 Seconds Skin: No rashes, No breakdown Musculoskeletal: No Tenderness to Palpation of Joints or Extremities, Arthritic Changes Neurological: Cranial nerves II-XII grossly intact Psych/Mental Status: Normal Affect, Appropriate Microbiology Past 72 Hours 11/11/19 15:40 Mucosa - Nasopharyngeal Respiratory Panel (PCR) - Final Influenzae B 11/07/19 00:35 Blood Culture (Wb) - Anticubital Right Blood Culture - Final No growth in 5 days. 11/07/19 00:55 Blood Culture (Wb) - Anticubital Left Blood Culture - Final No growth in 5 days. 11/11/19 16:40 Urine, Random Legionella Antigen - Final 11/11/19 16:40 Urine, Random Streptococcus pneumoniae Antigen (M - Final Laboratory Results 11/13/19 16:28: POC Glucose 220 H 11/13/19 20:30: POC Glucose 122 H 11/14/19 06:06: WBC 13.2 H, RBC 4.35, Hgb 12.5, Hct 39.4, MCV 90.6, MCH 28.7, MCHC 31.7 L, RDW Std Deviation 44.0 H, RDW Coeff of Tyesha 13.3, Plt Count 199, MPV 9.9, Immature Gran % (Auto) 0.500, Neut % (Auto) 60.3, Lymph % (Auto) 33.4, Hancock % (Auto) 5.5, Eos % (Auto) 0.2, Baso % (Auto) 0.1, Absolute Neuts (auto) 8.0 H, Absolute Lymphs (auto) 4.41, Nucleated RBC % 0, Differential Comment SCANNED, Reactive Lymphocytes 1+ 11/14/19 06:06: Sodium 139, Potassium 3.2 L, Chloride 105, Carbon Dioxide 28.0, Anion Gap 6, BUN 22 H, Creatinine 0.52 L, Estim Creat Clear Calc 92.24, Est GFR (MDRD) Af Amer 156, Est GFR (MDRD) Non-Af 129, BUN/Creatinine Ratio 42.0 H, Glucose 63 L, Calcium 8.4 L 11/14/19 08:12: POC Glucose 60 L 11/14/19 09:23: POC Glucose 80 11/14/19 11:53: POC Glucose 218 H Current Medications Acetaminophen (Tylenol) 650 mg PO Q6H PRN PRN PRN Reason: Pain Score 1-3/Temp > 100.7 F Last Admin: 11/13/19 13:01 Dose: 650 mg Documented by: Albuterol Sulfate (Ventolin Aerosols) 2.5 mg INHALATION Q2H PRN PRN PRN Reason: SHORTNESS OF BREATH Last Admin: 11/08/19 09:12 Dose: 2.5 mg Documented by: Albuterol/Ipratropium (Duoneb) 3 ml INHALATION Q4HWA.RT [facility] Last Admin: 11/14/19 11:15 Dose: 3 ml Documented by: Aspirin (Ecotrin) 325 mg PO DAILY [facility] Last Admin: 11/14/19 11:57 Dose: 325 mg Documented by: Benzonatate (Tessalon Perle) 100 mg PO Q8H PRN PRN PRN Reason: COUGH Last Admin: 11/13/19 10:13 Dose: 100 mg Documented by: Clonazepam (Klonopin) 0.5 mg PO TIDCM [facility] Last Admin: 11/14/19 12:11 Dose: 0.5 mg Documented by: Clozapine (Clozaril) 150 mg PO QHS [facility] Last Admin: 11/13/19 20:37 Dose: 150 mg Documented by: Clozapine (Clozaril) 100 mg PO LUNCH [facility] Clozapine (Clozaril) 150 mg PO DINNER [facility] Last Admin: 11/13/19 17:33 Dose: 150 mg Documented by: Dextrose (D50w Syringe) 0 gm IV X1 PRN; Protocol PRN Reason: Hypoglycemia Doxycycline Monohydrate (Doxycycline) 100 mg PO BID [facility] Last Admin: 11/14/19 11:56 Dose: 100 mg Documented by: Enoxaparin Sodium (Lovenox) 40 mg SC DAILY [facility] Last Admin: 11/14/19 11:57 Dose: 40 mg Documented by: Ferrous Gluconate (Ferrous Gluconate) 324 mg PO DAILY@0800 [facility] Last Admin: 11/14/19 07:58 Dose: Not Given Documented by: Furosemide (Lasix) 40 mg PO DAILY [facility] Last Admin: 11/14/19 11:57 Dose: 40 mg Documented by: Glipizide (Glucotrol) 5 mg PO BIDAC [facility] Last Admin: 11/14/19 07:58 Dose: Not Given Documented by: Glucagon () 1 mg IM .X1 PRN PRN Reason: Hypoglycemia Guaifenesin (Mucinex) 1,200 mg PO BID [facility] Last Admin: 11/14/19 11:58 Dose: 1,200 mg Documented by: Sodium Chloride () 250 mls @ 15 mls/hr IV .[id number] PRN PRN Reason: Saline Flush Insulin Glargine (Lantus (Bkc)) 60 units SC 1100 [facility] Last Admin: 11/14/19 12:05 Dose: Not Given Documented by: Insulin Human Lispro (Humalog Kwikpen (Bkc)) 0 unit SC ACHS [facility]; Protocol Last Admin: 11/14/19 12:03 Dose: Not Given Documented by: Insulin Human Lispro (Humalog Kwikpen (Bkc)) 10 unit SC TIDAC [facility] Last Admin: 11/14/19 12:03 Dose: Not Given Documented by: Labetalol HCl (Trandate) 10 mg IV Q4H PRN PRN PRN Reason: SBP > 160 Lubiprostone (Amitiza) 24 mcg PO BID [facility] Last Admin: 11/14/19 11:56 Dose: 24 mcg Documented by: Ondansetron HCl (Zofran) 4 mg IV Q8H PRN PRN PRN Reason: NAUSEA/VOMITING Oseltamivir Phosphate (Tamiflu) 75 mg PO BID [facility] Stop: 11/16/19 22:01 Last Admin: 11/14/19 11:59 Dose: 75 mg Documented by: Oxymetazoline HCl (Afrin ([facility])) 2 spray NS BID PRN PRN PRN Reason: CONGESTION Pantoprazole Sodium (Protonix) 20 mg PO DAILY [facility] Last Admin: 11/14/19 11:58 Dose: 20 mg Documented by: Potassium [facility] ([facility]Dur) [facility] Pramipexole Dihydrochloride (Mirapex) 0.5 mg PO QHS [facility] Last Admin: 11/13/19 20:32 Dose: 0.5 mg Documented by: Pravastatin Sodium (Pravachol) 20 mg PO QHS [facility] Last Admin: 11/13/19 20:32 Dose: 20 mg Documented by: Prednisone () 40 mg PO DAILY@0800 [facility] Last Admin: 11/14/19 07:59 Dose: 40 mg Documented by: Risperidone (Risperdal) 1 mg PO DAILY [facility] Last Admin: 11/14/19 12:04 Dose: 1 mg Documented by: Senna/Docusate Sodium (Senokot-S, Celia-Colace) 2 tablet PO BID PRN PRN PRN Reason: Constipation Last Admin: 11/09/19 22:09 Dose: 2 tablet Documented by: Sodium Chloride () 10 - 40 ml IV UD PRN PRN Reason: SALINE FLUSH Last Admin: 11/14/19 03:30 Dose: 10 ml Documented by: STROKE Vital Signs/Narrative: Vital Signs Pulse Resp 11/14/19 11:15 98 18 Medical Necessity - Tobacco Use Smoking Status: Former smoker Assessment/Plan All Active Problems COPD exacerbation (Acute) Elevated troponin (Acute) Anxiety attack (Acute) This is a patient is a 53-year-old lady who presented with progressive shortness of breath and consistent with COPD exacerbation with chronic toxic respiratory failure with history of resistant to schizophrenia on multiple antipsychotic medications, clozapine, clonazepam, risperidone and venlafaxine. Patient also has chronic pain. Patient was found to have elevated troponin attributed to demand ischemia 1. Acute on chronic hypoxic respiratory failure secondary to COPD with acute exacerbation ?Managed with aerosol treatment and steroid as well as antibiotics in addition to supplemental oxygen. Initially, patient is on 3 L of oxygen. She was mostly Continue bronchodilator and steroid. plan is for patient to be transferred to a facility capable of handling patient needing continuous oxygen. Patient cannot go back to care home as they cannot manage patient on continuous oxygen. On doxycycline added 11/12/2019: Patient was moved to ICU yesterday evening. Started on BiPAP but patient kept refusing. It was switched to 5 L of oxygen. Mucinex, incentive spirometry and chest physiotherapy. On Solu-Medrol 40 mg IV every 8 hourly. Prednisone discontinued. Discussed with picture booker. The patient's auto seat cover installer was Dr. Ramirez. Labs ordered. On review of previous admission, patient had history of smoking about 3 packs a day for 20 years and quit in January in 2013. She had multiple admissions in the past for COPD exacerbation, failure to thrive, last admission 10/31/2021 11/02/2019 for pneumonia and patient completed 7 days of antibiotic. 2: Shortness of breath. Lasix 20 mg IV 1 dose and then 40 mg daily from tomorrow a.m. Dr. Ramirez was called and left a voice message. His office was also called but closed on Friday. DC Solu-Medrol start prednisone 40 mg daily from tomorrow a.m. 2/2: Respiratory status is much improved. Plan for discharge tomorrow if SNF pre-CERT 2. Elevated troponin secondary from demand ischemia ?Medical management only 3. Chronic diastolic congestive heart failure - stable Chest x-ray does not show fluid overload. 4. Diabetes mellitus type 2 with complications including hyperglycemia; - Accu-Cheks before meals and at bedtime with sliding scale coverage addition to scheduled long-acting insulin 11/11: Long-acting insulin, Lantus increased to 50 units daily. 11/13: Glucose still elevated. Lantus increased to 60 units daily. 22: Patient had hypoglycemia, glucose 63 on BMP. Patient had nursing protocol. Last glucose 218. Accu-Chek before meals and at bedtime. Lantus insulin decreased. Scheduled pre-meal lispro insulin discontinued. 5. Obstructive sleep apnea - patient is on CPAP at night 6. Acute encephalopathy on baseline schizophrenia probably exacerbated by multiple antipsychotic medications: Patient is on clozapine, clonazepam, Effexor and Risperdal. Clonazepam, Effexor and Risperdal discontinued. Clozapine dose decreased with holding parameters if patient is lethargic or sedated 2/: Patient is awake but confused and disoriented, anxious and restless. Patient dose of clozapine increased and put on Klonopin 0.5 mg every 8 hourly with meals and holding parameters and Risperdal 1 mg daily. 2/: Discharged on present antipsychotic regimen. Follow-up psychiatrist Dr Lorraine Springer 7. Dyslipidemia -patient is on statin therapy, continued at home dose 8. Obesity with BMI of 37 9. DVT prophylaxis SC Lovenox Total time of the visit including total time spent in counseling or coordination of care, (more than 50% of the total time, spent in obtaining medical information from nurses and other ancillary care providers), previous medical record, review of labs and imaging is 30 minutes Signout: Discharge to SNF, pending precertification. Needs to follow-up with psychiatrist. Complete 7 days of doxycycline and 5 days of Tamiflu. Microbiology Past 72 Hours 11/11/19 15:40 Mucosa - Nasopharyngeal Respiratory Panel (PCR) - Final Influenzae B 11/07/19 00:35 Blood Culture (Wb) - Anticubital Right Blood Culture - Final No growth in 5 days. 11/07/19 00:55 Blood Culture (Wb) - Anticubital Left Blood Culture - Final No growth in 5 days. 11/11/19 16:40 Urine, Random Legionella Antigen - Final 11/11/19 16:40 Urine, Random Streptococcus pneumoniae Antigen (M - Final Laboratory Results 11/13/19 16:28: POC Glucose 220 H 11/13/19 20:30: POC Glucose 122 H 11/14/19 06:06: WBC 13.2 H, RBC 4.35, Hgb 12.5, Hct 39.4, MCV 90.6, MCH 28.7, MCHC 31.7 L, RDW Std Deviation 44.0 H, RDW Coeff of Tyesha 13.3, Plt Count 199, MPV 9.9, Immature Gran % (Auto) 0.500, Neut % (Auto) 60.3, Lymph % (Auto) 33.4, Hancock % (Auto) 5.5, Eos % (Auto) 0.2, Baso % (Auto) 0.1, Absolute Neuts (auto) 8.0 H, Absolute Lymphs (auto) 4.41, Nucleated RBC % 0, Differential Comment SCANNED, Reactive Lymphocytes 1+ 11/14/19 06:06: Sodium 139, Potassium 3.2 L, Chloride 105, Carbon Dioxide 28.0, Anion Gap 6, BUN 22 H, Creatinine 0.52 L, Estim Creat Clear Calc 92.24, Est GFR (MDRD) Af Amer 156, Est GFR (MDRD) Non-Af 129, BUN/Creatinine Ratio 42.0 H, Glucose 63 L, Calcium 8.4 L 11/14/19 08:12: POC Glucose 60 L 11/14/19 09:23: POC Glucose 80 11/14/19 11:53: POC Glucose 218 H Code Visit Inpatient E&M: 99507 Subs Hosp L2
[2019-11-14] MEDS: Insulin Lispro 100 UNIT/ML INSULN.PEN SC ×2 (16:33→22:25)
[2019-11-14 16:51] LABS: Bedside Glucose 331 mg/dL (70-110)
[2019-11-14] MEDS: Pramipexole Di-HCl 0.5 MG Tablet PO (22:18)
[2019-11-14] MEDS: Pravastatin 20 MG Tablet PO (22:19)
[2019-11-14] MEDS: Oxymetazoline 0.05% 1 SPRAY SPRAY.BTL 2 SPRAY NS (22:28)
[2019-11-14 22:50] LABS: Bedside Glucose 171 mg/dL (70-110)
[2019-11-15] VITALS (9 sets, daily range): BP systolic 109–120; BP diastolic 68–78; PULSE 98–109; RESP 18–20; TEMP 36.3–36.5; O2SAT 94–96
--- NOTE | 2019-11-15 | RAD_ITS ---
STUDY: SWALLOWING STUDY REASON FOR EXAM: Female, 53 years old. ASSESS PRESENCE AND DEGREE OF ASPIRATION, 145 SEC FLUORO, 12.58 MGY, 2391 IMAGES TECHNIQUE: The examination was performed with Speech Pathology in attendance. Under fluoroscopic observation, the patient ingested thin barium, thick barium, barium pudding, and barium coated cracker. FLUOROSCOPY TIME: 2:25 minutes/seconds RADIOLOGIST INVOLVEMENT: COMPARISON: None. FINDINGS: The following was observed during swallowing of the various mixtures of barium: Thin Barium: Penetration and evacuation with ingestion of thin liquids. Thick Barium: There was no evidence of aspiration or laryngeal penetration. Barium Pudding: There was no evidence of aspiration or laryngeal penetration. Barium Coated Cracker: There was no evidence of aspiration or laryngeal penetration. RAD/Swallowing Function w/Video IMPRESSION: Penetration and evacuation with ingestion of thin liquids. The swallow study findings were discussed with the patient by the speech pathologist at the conclusion of the examination. Please see speech pathology report for more information and recommendations. Electronically Signed: Trenton Sanchez, at 15:23 EST , Service support ,
[2019-11-15] MEDS: Benzonatate 100 MG Capsule PO (02:48)
[2019-11-15] MEDS: Oxymetazoline 0.05% 1 SPRAY SPRAY.BTL 2 SPRAY NS (06:41)
[2019-11-15 06:56] LABS: Bedside Glucose 84 mg/dL (70-110)
[2019-11-15] MEDS: Ipratropium/Albuterol Sulfate 3 ML AMPUL.NEB INHALATION ×4 (07:15→19:35)
[2019-11-15] MEDS: clonazePAM 0.5 MG Tablet PO ×3 (08:48→16:46)
[2019-11-15] MEDS: guaiFENesin 1,200 MG Tablet 1200 MG PO ×2 (08:48→22:22)
[2019-11-15] MEDS: Enoxaparin 40 MG/0.4 ML Syringe SC (08:48)
[2019-11-15] MEDS: Ferrous Gluconate 324 MG Tablet PO (08:49)
[2019-11-15] MEDS: predniSONE 20 MG Tablet 40 MG PO (08:49)
[2019-11-15] MEDS: RisperiDONE 1 MG Tablet PO (08:50)
[2019-11-15] MEDS: Lubiprostone 24 MCG Capsule PO ×2 (08:50→22:21)
[2019-11-15] MEDS: Oseltamivir Phosphate 75 MG Capsule PO ×2 (08:50→22:21)
[2019-11-15] MEDS: Pantoprazole Sodium 20 MG Tablet PO (08:51)
[2019-11-15] MEDS: Aspirin E.C. 325 MG Tablet PO (08:51)
[2019-11-15] MEDS: Doxycycline 100 MG CAPSULE PO ×2 (08:51→22:21)
[2019-11-15] MEDS: Furosemide 40 MG Tablet PO (08:51)
[2019-11-15] MEDS: Acetaminophen 325 MG Tablet 650 MG PO ×2 (08:59→18:37)
--- NOTE | 2019-11-15 09:44 | NURSING ---
Patient's case preparer and liner, Haylee, in to see patient at this time. Updated her that as long as we get precert for patient to go to TCU then the plan will be for patient to get transferred there today. Will update later this afternoon after TCU checks on precert.
--- NOTE | 2019-11-15 10:18 | PCM.TXEXTCAR ---
- Diet 11/06/19 21:29 Diet: Cardiac: Calorie-Controlled Food consistency:: Mechanical Soft/Ground Liquid Consistency:: Regular/Thin Is pt able to select menu?: Yes Diet Comments: Close supervision How many daily calories?: 1800 calorie - Routine Orders/Code Status O2 Liters per Minute: 4 O2 Frequency: Continuous Keep PO Greater than or Equal to (%): 92 Code Status: Full Code - Wound(s) rt foot Wound Type: Abrasion - Suggestions for Active Care Change Position every (hours): 3 Hours to sit in a chair: 2 Times a day to sit in chair: 3 - Therapies Weight Bearing: Weight bearing as tolerated Physical Therapy: Eval and Treat Occupational Therapy: Eval and Treat - Allergies/Procedures Done in Hospital Allergies/Adverse Reactions: Allergies No Known Allergies Allergy (Verified 11/06/19 15:26) - Type of Care/Length of Stay Estimated LOS: Convalescent Care Less Than 30 days Type of Care Needed: Skilled Rehab Potential: Good Prognosis: Good - Additional Orders/Day of Discharge H&P will serve as current which was dated: 11/06/19 Day of Discharge: 11/15/19 - Dietary and Speech Recommendations Dietitian Recommendations/Changes: Continue 1800 calorie; cardiac diet with fluid restriction as needed. - Follow Up Care Primary Care Physician: Boris Vance MD [Primary Care Provider] - Please follow up with your Primary Care Physician in: 1-2 weeks Please Follow Up With: Koby Ramirez MD When: 1-2 weeks Please Follow Up With: Lorraine Springer MD When: 1 week.
--- NOTE | 2019-11-15 11:14 | CASEMGMT ---
Addendum entered by Maddi Tony 11/15/19 14:16: PT/OT notes are available. JONNY placed a call to Humaira with TCU and updated her of this. Humaira states she has submitted updated PT/OT to [facility] and is confident that she will hear today from [facility]. JONNY updated physician. Addendum entered by Maddi Tony 11/15/19 12:37: JONNY received call from Humaira with TCU stating Dionne just needs updated progress notes, and PT/OT notes. SW reviewed chart, OT note is in but not PT. JONNY spoke with OFFICE SERVICES ASSOCIATE Leelee and asked if she could work with pt next and get notes in for pre-cert. Leelee states she will do so. Addendum entered by Maddi Tony 11/15/19 12:29: JONNY received call from Mack Richard TCU SW. Per Ivonne she spoke with Dionne at [facility] who states pt's pre-cert has and they will need new therapy notes and progress notes. JONNY placed a call to Humaira with TCU who states she just needed Dionne at [facility]'s number and she would just call her regarding pre-cert. Humaira states she will get number from Mack Richard for Dionne at [facility] and she will call Dionne regarding pre-cert. JONNY updated RN and Charge Nurse. Plan: Pre-cert will need to be resubmitted. TCU pending pre-cert. Original Note: Social Work Note JONNY placed a call to Humaira with TCU asking if pt's pre-cert is still good today. JONNY waiting for call back. Maddi Tony TECHNICAL TESTING ENGINEER, SOIL SCIENCE PROFESSOR
[2019-11-15] MEDS: Insulin Lispro 100 UNIT/ML INSULN.PEN SC ×3 (12:08→22:22)
[2019-11-15 12:26] LABS: Bedside Glucose 232 mg/dL (70-110)
--- NOTE | 2019-11-15 14:00 | SP.MBSS_ITS ---
PRIMARY / SECONDARY DIAGNOSIS: dysphagia (R13.10) REFERRING PHYSICIAN: Dr. Enrique Duncan MD CURRENT DIET: mechanical soft textures, thin liquids DENTITION: dentures, ill fitting MENTAL STATUS: sufficient for participation RESPIRATORY STATUS: O2 at 5L/min via nasal cannula. REASON FOR REFERRAL: The Patient is a 53 year old female referred for a modified barium swallow (MBS) study to objectively assess the Patients oropharyngeal swallow function under fluoroscopy secondary to concerns for PO intake tolerance, with a history of silent aspiration under fluoroscopy. MEDICAL HISTORY: Chronic obstructive pulmonary disease, schizophrenia, hyperlipidemia, hypertension, type II diabetes mellitus. PREVIOUS MODIFIED BARIUM SWALLOW STUDY: 07/05/2015 MBS revealed moderate oropharyngeal dysphagia with silent aspiration with thin liquids 11/14/2014 MBS revealed mild oropharyngeal dysphagia with transient shallow penetration with thin and nectar thickened liquids ADDITIONAL OBJECTIVE ASSESSMENT RESULTS: 11/06/2019 chest x-ray revealed near complete clearing of bilateral pulmonary infiltrates evident on the prior study. 11/11/2019 chest x-ray revealed improving inspiration and improving infiltrates of the left upper and lower lung zones now with minimal infiltrates in the left lower lobe, approaching baseline. ASSESSMENT PARAMETERS: The Patient participated in a Modified Barium Swallow (MBS) study on 11/15/2019. Dr. Sanchez was the radiologist present for this evaluation. This study was recorded in the lateral view and images were sent to PACs for storage. Scoring was completed through each trial using the 8-point Penetration-Aspiration Scale (PAS) and summarized via the Videofluoroscopic Dysphagia Scale (VDS) and the Bolus Residue Scale (BRS), with severity scoring through the Dysphagia Severity Rating Scale (DSRS) and the Swallowing Performance Scale (SPS), and recommended diet textures through the International Dysphagia Diet Standardisation Initiative (IDDSI) RESULTS OF THE EVALUATION: The Patient presents with mild to moderate oropharyngeal dysphagia (DSRS: 4; SPS: 4) with persistent penetration without complete ejection of thin liquids and nectar thickened liquids OBJECTIVE ASSESSMENT OF SWALLOW FUNCTION (QUANTITATIVE ? PER TRIAL): PENETRATION / ASPIRATION SCALE (ROSE): 1 = does not enter airway 2 = enters airway/above vocal folds/ejected 3 = enters airway/above vocal folds/not ejected 4 = enters airway/contacts vocal folds/ejected 5 = enters airway/contacts vocal folds/not ejected 6 = enters airway/below vocal folds/ejected 7 = enters airway/below vocal folds/not ejected despite effort 8 = enters airway/below vocal folds/no effort PENETRATION / ASPIRATION SCALE (SCORE): Thin liquid - 5 mL tsp.: 1 Thin liquids via cup (single sip): 3 Thin liquids via cup (single sip): 3 Thin liquids via cup (sequential swallows): 5 Pudding via spoon: 2 Regular textured cookie: 1 Thin liquids via straw (sequential swallows): 3 Thin liquids via straw (chin tuck): 2 Thin liquids via straw (chin tuck): 3 Thin liquids via straw (chin tuck): 5 [place] thickened liquids via cup (single sip): 5 [place] thickened liquids via cup (single sip): 1 [place] thickened liquids via cup (single sip): 1 Honey thickened liquids via cup (single sip): 1 Honey thickened liquids via cup (single sip): 1 Honey thickened liquids via cup (single sip): 1 Honey thickened liquids via cup (single sip): 1 OBJECTIVE ASSESSMENT OF SWALLOW FUNCTION (QUANTITATIVE ? AGGREGATE): VIDEOFLOROSCOPIC DYSPHAGIA SCALE (VDS): LIP CLOSURE: 0 (of 4) Intact BOLUS FORMATION: 3 (of 6) Inadequate MASTICATION: 4 (of 8) Inadequate APRAXIA: 0 (of 4.5) None TONGUE TO PALATE CONTACT: 0 (of 10) Intact PREMATURE BOLUS LOSS: 3 (of 4.5) 10-50% ORAL TRANSIT TIME: 0 (of 3) < 1.5s TRIGGERING OF PHARYNGEAL SWALLOW: 4.5 (of 4.5) Delayed VALLECULAR RESIDUE: 2 (of 6) <10% LARYNGEAL ELEVATION: 9 (of 9) Impaired PYRIFORM SINUS RESIDUE: 0 (of 13.5) None COATING OF PHARYNGEAL WALL: 0 (of 9) No PHARYNGEAL TRANSIT TIME: 0 (of 6) <1.0s ASPIRATION: 6 (of 12) Supraglottic penetration BOLUS RESIDUE SCALE (BRS): 2 (of 6) residue in valleculae OBJECTIVE ASSESSMENT OF SWALLOW FUNCTION (SEVERITY GRADING): DYSPHAGIA SEVERITY RATING SCALE (DSRS): 4 (moderate) SWALLOWING PERFORMANCE SCALE (SPS): 4 (mild to moderate) OBJECTIVE ASSESSMENT OF SWALLOW FUNCTION (QUALITATIVE): ORAL PREPARATORY PHASE: mild mastication inefficiency with prolonged mastication; sufficient anterior oral containment during oral manipulation; preserved management of breathing / bolus formation ORAL TRANSITIONAL PHASE: no lingual discoordination (no tremor / undulations); inconsistent oral clearance without side specific consolidation; rather consistent premature posterior bolus loss directly contributing to penetration events PHARYNGEAL PHASE: intermittent pharyngeal phase dyssynchrony resulting in pre-prandial penetration of thin and nectar thickened liquids; mild reduction in hyolaryngeal excursion and duration with inconsistent laryngeal vestibule pressure generated to expel penetrated material; no signs of pharyngeal dysmotility; no signs of velopharyngeal impairments. ESOPHAGEAL PHASE: no obvious esophageal phase abnormalities observed. RESPONSE TO STRATEGIES: all deficits managed successfully with reduction in bolus rate / volume adjustments, and diet texture / viscosity adjustments; insufficient effects noted during execution of the chin tuck posture. DYSPHAGIA ASSOCIATED MEDICAL CONSIDERATIONS / INTERVENTION CONSIDERATIONS: No aspiration appreciated throughout trials, unable to definitively rule out silent aspiration. I would consider the Patient to be at a higher risk of aspiration related medical complications / aspiration pneumonia / aspiration related pulmonary syndrome secondary to the diagnosis of chronic obstructive pulmonary disease, presence of dysphagia, reduced volitional and responsive cough intensity, with no guarantee of prolonged tolerance of thickened liquids. INTERVENTION RECOMMENDATIONS AND CONSIDERATIONS: The Patient requires intensive skilled speech-language intervention targeting diet texture management and training / implementation of recommended compensatory strategies; training, implementation, and Patient / caregiver education regarding implementation of the [place] Free Water Protocol (FFWP); Patient and caregiver training targeting meal preparation / thickened liquid preparation if unable to advance to baseline diet textures prior to discharge. I would consider training and implementation of oropharyngeal strengthening exercises to facilitate improved oropharyngeal strength and coordination, though significant improvements are unlikely due to the attributed etiology of the Patients swallow deficit. POST ASSESSMENT EDUCATION: Results and recommendations were discussed with the Patient immediately following MBS completion, with the Patient verbalizing understanding and agreement with all recommendations and education provided. DIET TEXTURE RECOMMENDATIONS: Will recommend a mechanical soft textured (IDDSI: 5), honey thickened liquid (IDDSI: 3) diet RECOMMENDED COMPENSATORY STRATEGIES: Supervision, consider cutting tougher textures into bite sized pieces, reduced bolus volume / rate of ingestion, seated upright at 90 degrees during PO intake, remain upright for 30-60 minutes post meal (GERD precaution), medications one at a time with a liquid chaser. IMAGE COUNT: [id number] Tony Llanes M.A., GRADY-PAYROLL SPECIALIST, CBIS MBSImP Certified, LSVT Certified [facility] Speech-Language Pathology [email or web address]
--- NOTE | 2019-11-15 14:11 | PCM.DC.SUM ---
Discharge Date and Diagnosis - Problem List Patient Problems: Active and Suspected Problems COPD exacerbation (Acute) Elevated troponin (Acute) Anxiety attack (Acute) Date of Admission: 11/06/19 Date of Discharge: 11/15/19 - Primary Discharge Diagnosis Active and Suspected Problems COPD exacerbation (Acute) Elevated troponin (Acute) Anxiety attack (Acute) - Secondary Discharge Diagnosis Chronic Problems COPD (chronic obstructive pulmonary disease) (Chronic) Hyperlipidemia (Chronic) Diabetes mellitus type 2 in obese (Chronic) HTN (hypertension) (Chronic) Schizophrenia (Chronic) Hospital Course and Treatment Operations: None Summary of Care Provided: The patient is a 53 year old F [] Patient Problems: Active and Suspected Problems COPD exacerbation (Acute) Elevated troponin (Acute) Anxiety attack (Acute) - Physical Exam Vitals/I&O's: Vital Signs Temp Pulse Resp BP Pulse Ox 97.4 F L 106 H 20 H 120/69 95 11/15/19 08:45 11/15/19 08:45 11/15/19 08:45 11/15/19 08:45 11/15/19 08:45 Oxygen Flow Rate (L/min) 4 Oxygen Delivery Method Nasal Cannula Weight: 180 lb 5.41 oz Body Mass Index (BMI) 37.3 Intake and Output for Last 24 Hours 11/13/19 11/14/19 11/15/19 23:59 23:59 23:59 Intake Total 940 / 940 1210 / 1410 400 / 400 Output Total 900 / 1050 550 / 550 Balance 40 / -110 660 / 860 400 / 400 Microbiology Past 72 Hours 11/11/19 15:40 Mucosa - Nasopharyngeal Respiratory Panel (PCR) - Final Influenzae B Laboratory Results 11/14/19 16:25: POC Glucose 331 H 11/14/19 22:24: POC Glucose 171 H 11/15/19 06:39: POC Glucose 84 11/15/19 12:06: POC Glucose 232 H Current Medications Acetaminophen (Tylenol) 650 mg PO Q6H PRN PRN PRN Reason: Pain Score 1-3/Temp > 100.7 F Last Admin: 11/15/19 08:59 Dose: 650 mg Documented by: Albuterol Sulfate (Ventolin Aerosols) 2.5 mg INHALATION Q2H PRN PRN PRN Reason: SHORTNESS OF BREATH Last Admin: 11/08/19 09:12 Dose: 2.5 mg Documented by: Albuterol/Ipratropium (Duoneb) 3 ml INHALATION Q4HWA.RT [facility] Last Admin: 11/15/19 10:46 Dose: 3 ml Documented by: Aspirin (Ecotrin) 325 mg PO DAILY [facility] Last Admin: 11/15/19 08:51 Dose: 325 mg Documented by: Benzonatate (Tessalon Perle) 100 mg PO Q8H PRN PRN PRN Reason: COUGH Last Admin: 11/15/19 02:48 Dose: 100 mg Documented by: Clonazepam (Klonopin) 0.5 mg PO TIDCM [facility] Last Admin: 11/15/19 12:09 Dose: 0.5 mg Documented by: Clozapine (Clozaril) 150 mg PO QHS [facility] Last Admin: 11/14/19 22:17 Dose: 150 mg Documented by: Clozapine (Clozaril) 100 mg PO LUNCH [facility] Last Admin: 11/15/19 12:09 Dose: 100 mg Documented by: Clozapine (Clozaril) 150 mg PO DINNER [facility] Last Admin: 11/14/19 16:34 Dose: 150 mg Documented by: Dextrose (D50w Syringe) 0 gm IV X1 PRN; Protocol PRN Reason: Hypoglycemia Doxycycline Monohydrate (Doxycycline) 100 mg PO BID [facility] Last Admin: 11/15/19 08:51 Dose: 100 mg Documented by: Enoxaparin Sodium (Lovenox) 40 mg SC DAILY [facility] Last Admin: 11/15/19 08:48 Dose: 40 mg Documented by: Ferrous Gluconate (Ferrous Gluconate) 324 mg PO DAILY@0800 [facility] Last Admin: 11/15/19 08:49 Dose: 324 mg Documented by: Furosemide (Lasix) 40 mg PO DAILY [facility] Last Admin: 11/15/19 08:51 Dose: 40 mg Documented by: Glucagon () 1 mg IM .X1 PRN PRN Reason: Hypoglycemia Guaifenesin (Mucinex) 1,200 mg PO BID [facility] Last Admin: 11/15/19 08:48 Dose: 1,200 mg Documented by: Sodium Chloride () 250 mls @ 15 mls/hr IV .[id number] PRN PRN Reason: Saline Flush Insulin Glargine (Lantus (Bkc)) 40 units SC DAILY [facility] Last Admin: 11/15/19 08:50 Dose: 40 u Documented by: Insulin Human Lispro (Humalog Kwikpen ([facility])) 0 unit SC ACHS [facility]; Protocol Last Admin: 11/15/19 12:08 Dose: 4 unit Documented by: Labetalol HCl (Trandate) 10 mg IV Q4H PRN PRN PRN Reason: SBP > 160 Lubiprostone (Amitiza) 24 mcg PO BID [facility] Last Admin: 11/15/19 08:50 Dose: 24 mcg Documented by: Ondansetron HCl (Zofran) 4 mg IV Q8H PRN PRN PRN Reason: NAUSEA/VOMITING Oseltamivir Phosphate (Tamiflu) 75 mg PO BID [facility] Stop: 11/16/19 22:01 Last Admin: 11/15/19 08:50 Dose: 75 mg Documented by: Oxymetazoline HCl (Afrin ([facility])) 2 spray NS BID PRN PRN PRN Reason: CONGESTION Last Admin: 11/15/19 06:41 Dose: 2 spray Documented by: Pantoprazole Sodium (Protonix) 20 mg PO DAILY [facility] Last Admin: 11/15/19 08:51 Dose: 20 mg Documented by: Potassium Chloride (K-Dur) [facility]q [facility] Last Admin: 11/15/19 08:49 Dose: 40 meq Documented by: Pramipexole Dihydrochloride (Mirapex) 0.5 mg PO QHS [facility] Last Admin: 11/14/19 22:18 Dose: 0.5 mg Documented by: Pravastatin Sodium (Pravachol) 20 mg PO QHS [facility] Last Admin: 11/14/19 22:19 Dose: 20 mg Documented by: Prednisone () 40 mg PO DAILY@0800 [facility] Last Admin: 11/15/19 08:49 Dose: 40 mg Documented by: Risperidone (Risperdal) 1 mg PO DAILY [facility] Last Admin: 11/15/19 08:50 Dose: 1 mg Documented by: Senna/Docusate Sodium (Senokot-S, Celia-Colace) 2 tablet PO BID PRN PRN PRN Reason: Constipation Last Admin: 11/09/19 22:09 Dose: 2 tablet Documented by: Sodium Chloride () 10 - 40 ml IV UD PRN PRN Reason: SALINE FLUSH Last Admin: 11/14/19 03:30 Dose: 10 ml Documented by: Discharge Diet: Low fat/ Low Cholesterol, 1800 Calorie Control Diet, 2000 mg Sodium Diet Discharge Activity: Return to Normal Activity Home Medications: Medications to take at Discharge Clozapine [Clozaril] 100 mg PO LUNCH 03/28/14 glipiZIDE [Glucotrol] 5 mg PO BIDAC 03/28/14 metFORMIN HCl [Glucophage] 1,000 mg PO BID 03/28/14 Insulin Glargine [Lantus SoloStar Pen] 42 units SC DAILY 12/23/14 Desvenlafaxine Succinate [Pristiq] 50 mg PO DAILY 07/25/15 Risperidone Microspheres [Risperdal Consta] 50 mg IM Q14D 07/25/15 Pravastatin Sodium 20 mg PO QHS 12/18/16 Cholecalciferol (Vitamin D3) [Vitamin D3] 1,000 unit PO DAILY 10/17/17 [place]-3 Fatty Acids/Fish Oil [Fish Oil 1,000 mg Capsule] 1 each PO DAILY 10/17/17 Albuterol IH (ProAir) [Proair Hfa] 2 puff INHALATION PRN PRN 07/22/18 Aspirin [Aspirin EC] 325 mg PO DAILY 07/22/18 Fluticasone/Vilanterol [Breo Ellipta 100-25 Mcg INH] 1 puff IH DAILY 07/22/18 Lubiprostone [Amitiza] 24 mcg PO BID 07/22/18 Acetaminophen [Mapap] 500 - 1,000 mg PO TID PRN PRN 10/31/19 Magnesium Hydroxide [Milk Of Magnesia] 30 ml PO DAILY PRN PRN 10/31/19 Omeprazole 20 mg PO DAILY 10/31/19 Oxymetazoline HCl [Nasal Relief] 2 spray NS PRN PRN 10/31/19 Pramipexole Di-HCl [Mirapex] 0.5 mg PO QHS 10/31/19 Umeclidinium [place] Inhaler [Incruse Ellipta Inhaler] 1 puff IH DAILY 10/31/19 Wheat Dextrin [Benefiber] 15 ml PO DAILY 10/31/19 Benzonatate [Tessalon Perle] 100 mg PO Q8H PRN PRN #12 cap 11/09/19 Prednisone 10 mg PO UD #30 tab 11/09/19 Clonazepam [Klonopin] 0.5 mg PO TIDCM #30 tab 11/15/19 Clozapine [Clozaril] 100 mg PO LUNCH #30 tab 11/15/19 Clozapine [Clozaril] 150 mg PO DINNER #0 11/15/19 Clozapine [Clozaril] 150 mg PO QHS #0 11/15/19 Doxycycline 100 mg PO BID #6 cap 11/15/19 Ferrous Gluconate 324 mg PO DAILY@0800 #30 tab 11/15/19 Ferrous Gluconate 325 mg PO DAILY #0 11/15/19 Furosemide [Lasix] 40 mg PO DAILY #30 tab 11/15/19 Oseltamivir Phosphate [Tamiflu] 75 mg PO BID #4 cap 11/15/19 Potassium Chloride [K-Dur] 20 meq PO DAILY #14 tab 11/15/19 Risperidone [Risperdal] 1 mg PO DAILY #30 tab 11/15/19 Following Prescrptions Were Given to Patient: Clozapine [Clozaril] 100 mg PO LUNCH #30 tab Prescription Printed Doxycycline 100 mg PO BID #6 cap Prescription Printed Ferrous Gluconate 324 mg PO DAILY@0800 #30 tab Prescription Printed Clonazepam [Klonopin] 0.5 mg PO TIDCM #30 tab Prescription Printed Furosemide [Lasix] 40 mg PO DAILY #30 tab Prescription Printed Prednisone 10 mg PO UD #30 tab Prescription Printed Risperidone [Risperdal] 1 mg PO DAILY #30 tab Prescription Printed Oseltamivir Phosphate [Tamiflu] 75 mg PO BID #4 cap Prescription Printed Benzonatate [Tessalon Perle] 100 mg PO Q8H PRN PRN #12 cap PRN Reason: Cough Transmission Status: Received by [facility] Primary Care Physician: Boris Vance MD [Primary Care Provider] - Please follow up with your Primary Care Physician in: 1-2 weeks Please Follow Up With: Koby Ramirez MD When: 1-2 weeks Please Follow Up With: Lorraine Springer MD When: 1 week. Disposition: Home Medical Necessity - Tobacco Use Smoking Status: Former smoker Code Visit Inpatient E&M: [id number] Disch Hosp
--- NOTE | 2019-11-15 16:25 | CASEMGMT ---
Social Work Note JONNY placed a call to Humaira with TCU who states she hasn't heard anything from [facility] yet. JONNY updated Humaira that this worker is leaving for the day and to call [facility] main floor if pre-cert is obtained. JONNY updated Charge Nurse that if Humaira with [facility]CU calls with pre-cert, pt is able to discharge to TCU today. Plan: TCU pending pre-cert Maddi Tony FINANCIAL SERVICE REPRESENTATIVE, PARTS SPECIALIST
[2019-11-15 16:50] LABS: Bedside Glucose 316 mg/dL (70-110)
--- NOTE | 2019-11-15 18:06 | PN_ITS ---
Patient Problems: Active and Suspected Problems COPD exacerbation (Acute) Subjective: Chief complaint: Follow-up after admission for acute on chronic hypoxic aspiratory failure due to COPD exacerbation which was attributed by influenza, acute encephalopathy and anxiety. Patient seen and examined. No acute events overnight. Today, she is alert and noted x3. She remains on 4 L of oxygen. Still having mild cough, no sputum production. She feels better. Heart rate has been on Friday, other vital signs are stable. - Physical Exam Vitals/I&O's: Vital Signs Temp Pulse Resp BP Pulse Ox 97.3 F L 109 H 20 H 117/68 96 11/15/19 15:15 11/15/19 15:15 11/15/19 15:15 11/15/19 15:15 11/15/19 15:15 Oxygen Flow Rate (L/min) 4 Oxygen Delivery Method Nasal Cannula Weight: 180 lb 5.41 oz Body Mass Index (BMI) 37.3 Intake and Output for Last 24 Hours 11/13/19 11/14/19 11/15/19 23:59 23:59 23:59 Intake Total 940 / 940 1210 / 1410 1537 / 1537 Output Total 900 / 1050 550 / 550 600 / 600 Balance 40 / -110 660 / 860 937 / 937 General: Alert, Oriented x3, Cooperative, No apparent distress HEENT: Atraumatic, PERRLA, EOMI, Normocephalic Oral: Moist Mucosa, No Gingival or Mucosal Lesions/ Ulcerations Neck: Supple, No JVD, Negative Carotid Bruits, Trachea Midline, Thyroid Normal Size and Texture Lungs: Normal air movement, No wheeze, No rales, Diminished, Rhonchi Cardiovascular: Regular rate, Regular Rhythm, Normal S1, Normal S2, PMI Normal Abdomen: Bowel Sounds Present, Soft, Non Tender, Non-Distended, No Hepato- splenomegaly, Obese Extremities: No clubbing, No cyanosis, No edema Skin: No rashes, No breakdown Neurological: Cranial nerves II-XII grossly intact, Neuro grossly intact Psych/Mental Status: Appropriate, Flat Affect Laboratory Results 11/14/19 22:24: POC Glucose 171 H 11/15/19 06:39: POC Glucose 84 11/15/19 12:06: POC Glucose 232 H 11/15/19 16:42: POC Glucose 316 H Current Medications Acetaminophen (Tylenol) 650 mg PO Q6H PRN PRN PRN Reason: Pain Score 1-3/Temp > 100.7 F Last Admin: 11/15/19 08:59 Dose: 650 mg Documented by: Albuterol Sulfate (Ventolin Aerosols) 2.5 mg INHALATION Q2H PRN PRN PRN Reason: SHORTNESS OF BREATH Last Admin: 11/08/19 09:12 Dose: 2.5 mg Documented by: Albuterol/Ipratropium (Duoneb) 3 ml INHALATION Q4HWA.RT [facility] [place] Last Admin: 11/15/19 14:45 Dose: 3 ml Documented by: Aspirin (Ecotrin) 325 mg PO DAILY [facility] Last Admin: 11/15/19 08:51 Dose: 325 mg Documented by: Benzonatate (Tessalon Perle) 100 mg PO Q8H PRN PRN PRN Reason: COUGH Last Admin: 11/15/19 02:48 Dose: 100 mg Documented by: Clonazepam (Klonopin) 0.5 mg PO TIDCM [facility] [place] Last Admin: 11/15/19 16:46 Dose: 0.5 mg Documented by: Clozapine (Clozaril) 150 mg PO QHS [facility] Last Admin: 11/14/19 22:17 Dose: 150 mg Documented by: Clozapine (Clozaril) 100 mg PO LUNCH [facility] [place] Last Admin: 11/15/19 12:09 Dose: 100 mg Documented by: Clozapine (Clozaril) 150 mg PO DINNER [facility] [place] Last Admin: 11/15/19 16:50 Dose: 150 mg Documented by: Dextrose (D50w Syringe) 0 gm IV X1 PRN; Protocol PRN Reason: Hypoglycemia Doxycycline Monohydrate (Doxycycline) 100 mg PO BID [facility] [place] Last Admin: 11/15/19 08:51 Dose: 100 mg Documented by: Enoxaparin Sodium (Lovenox) 40 mg SC DAILY [facility] [place] Last Admin: 11/15/19 08:48 Dose: 40 mg Documented by: Ferrous Gluconate (Ferrous Gluconate) 324 mg PO DAILY@0800 [facility] [place] Last Admin: 11/15/19 08:49 Dose: 324 mg Documented by: Furosemide (Lasix) 40 mg PO DAILY [facility] [place] Last Admin: 11/15/19 08:51 Dose: 40 mg Documented by: Glucagon () 1 mg IM .X1 PRN PRN Reason: Hypoglycemia Guaifenesin (Mucinex) 1,200 mg PO BID [facility] [place] Last Admin: 11/15/19 08:48 Dose: 1,200 mg Documented by: Sodium Chloride () 250 mls @ 15 mls/hr IV .[id number] PRN PRN Reason: Saline Flush Insulin Glargine (Lantus ([facility])) 40 units SC DAILY [facility] [place] Last Admin: 11/15/19 08:50 Dose: 40 u Documented by: Insulin Human Lispro (Humalog Kwikpen ([facility])) 0 unit SC ACHS [facility] [place]; Protocol Last Admin: 11/15/19 16:46 Dose: 6 unit Documented by: Labetalol HCl (Trandate) 10 mg IV Q4H PRN PRN PRN Reason: SBP > 160 Lubiprostone (Amitiza) 24 mcg PO BID [facility] Last Admin: 11/15/19 08:50 Dose: 24 mcg Documented by: Ondansetron HCl (Zofran) 4 mg IV Q8H PRN PRN PRN Reason: NAUSEA/VOMITING Oseltamivir Phosphate (Tamiflu) 75 mg PO BID [facility] Stop: 11/16/19 22:01 Last Admin: 11/15/19 08:50 Dose: 75 mg Documented by: Oxymetazoline HCl (Afrin ([facility])) 2 spray NS BID PRN PRN PRN Reason: CONGESTION Last Admin: 11/15/19 06:41 Dose: 2 spray Documented by: Pantoprazole Sodium (Protonix) 20 mg PO DAILY [facility] Last Admin: 11/15/19 08:51 Dose: 20 mg Documented by: Pot[facility] ([facility]) [facility] Last Admin: 11/15/19 08:49 Dose: 40 meq Documented by: Pramipexole Dihydrochloride (Mirapex) 0.5 mg PO QHS [facility] [place] Last Admin: 11/14/19 22:18 Dose: 0.5 mg Documented by: Pravastatin Sodium (Pravachol) 20 mg PO QHS [facility] Last Admin: 11/14/19 22:19 Dose: 20 mg Documented by: Prednisone () 40 mg PO DAILY@0800 [facility] [place] Last Admin: 11/15/19 08:49 Dose: 40 mg Documented by: Risperidone (Risperdal) 1 mg PO DAILY [facility] [place] Last Admin: 11/15/19 08:50 Dose: 1 mg Documented by: Senna/Docusate Sodium (Senokot-S, Celia-Colace) 2 tablet PO BID PRN PRN PRN Reason: Constipation Last Admin: 11/09/19 22:09 Dose: 2 tablet Documented by: Sodium Chloride () 10 - 40 ml IV UD PRN PRN Reason: SALINE FLUSH Last Admin: 11/14/19 03:30 Dose: 10 ml Documented by: Medical Necessity - Tobacco Use Smoking Status: Former smoker Assessment/Plan All Active Problems COPD exacerbation (Acute) Anxiety attack (Acute) This is a 53 years old female patient presented to the emergency room from [facility] because of worsening shortness of breath and she was found to have acute COPD exacerbation with acute on chronic hypoxic respiratory failure which was treated by influenza A and also found to have acute encephalopathy attributed to side effects of multiple antipsychotic medications. #1 acute COPD exacerbation/acute on chronic hypoxic respiratory failure: She is on p.o. prednisone and bronchodilators as well as doxycycline. Her symptoms improved, she has been maintaining her pulse ox at 4 L. Reportedly, she has been on 3 L at the [facility]. She still having some cough, no sputum production. Other vitals are stable. Plan to continue same treatment, awaiting insurance approval for placement to group home facility. #2 influenza B: She is on Tamiflu as well as symptomatic treatment for cough, fever and headache. #3 acute encephalopathy/anxiety: Attributed to side effects of antipsychotic medications. Patient has been on clozapine, clonazepam, Effexor and risperidone. Doses of all these medications adjusted. Patient has been more calm, alert and oriented. Plan to discharge patient on the current psych medications. #4 type 2 diabetes mellitus: Blood has been fluctuating, getting better. Continue ADA diet, Lantus, Humalog sliding scale. #5 schizophrenia: Improved, more calm and comfortable. Continue current doses of clozapine, Klonopin and risperidone. #6 hypertension: Blood pressure stable, continue current medications. #7 hyperlipidemia: Continue statins.. #8 DVT prophylaxis: Subcu Lovenox. This note was generated with [employer] dictation software. It may contain incorrect words, spelling, and punctuation that were not noted in checking the note before signing. Code Visit Inpatient E&M: 34773 Subs Hosp L2
[2019-11-15 22:15] LABS: Bedside Glucose 312 mg/dL (70-110)
[2019-11-15] MEDS: Pravastatin 20 MG Tablet PO (22:21)
[2019-11-15] MEDS: Pramipexole Di-HCl 0.5 MG Tablet PO (22:25)
[2019-11-16 01:28] VITALS: PULSE 104; RESP 20
[2019-11-16] MEDS: Ipratropium/Albuterol Sulfate 3 ML AMPUL.NEB INHALATION ×2 (01:28→10:08)
[2019-11-16 02:54] VITALS: BP 110/68; PULSE 94; RESP 18; TEMP 36.6; O2SAT 96
[2019-11-16 07:11] LABS: Bedside Glucose 138 mg/dL (70-110)
[2019-11-16] MEDS: RisperiDONE 1 MG Tablet PO (09:42)
[2019-11-16] MEDS: clonazePAM 0.5 MG Tablet PO (09:42)
[2019-11-16] MEDS: Aspirin E.C. 325 MG Tablet PO (09:42)
[2019-11-16] MEDS: predniSONE 20 MG Tablet 40 MG PO (09:42)
[2019-11-16] MEDS: Doxycycline 100 MG CAPSULE PO (09:42)
[2019-11-16] MEDS: Furosemide 40 MG Tablet PO (09:42)
[2019-11-16] MEDS: Ferrous Gluconate 324 MG Tablet PO (09:42)
[2019-11-16] MEDS: Enoxaparin 40 MG/0.4 ML Syringe SC (09:43)
[2019-11-16] MEDS: Pantoprazole Sodium 20 MG Tablet PO (09:43)
[2019-11-16] MEDS: guaiFENesin 1,200 MG Tablet 1200 MG PO (09:43)
[2019-11-16] MEDS: Lubiprostone 24 MCG Capsule PO (09:43)
[2019-11-16] MEDS: Oseltamivir Phosphate 75 MG Capsule PO (09:43)
[2019-11-16 09:47] VITALS: BP 131/75; PULSE 106; RESP 18; TEMP 37; O2SAT 95
[2019-11-16 10:08] VITALS: PULSE 102; RESP 20; O2SAT 95
--- NOTE | 2019-11-16 10:23 | CASEMGMT ---
Addendum entered by Maddi Tony 11/16/19 10:52: JONNY received call from Humaira with TCU stating she spoke with Dionne at [facility] and received pre-cert. SW updated physician. JONNY placed a call to pt's legal guardian Melony and pt's CM at [facility] and left messages informing them that pt will be discharged to TCU today. RN updated. Plan: TCU today Original Note: Social Work Note JONNY placed a call to Humaira with TCU. Humaira states pre-cert is still pending and if she doesn't hear from Dionne at [facility] soon then she will be calling [facility]. Plan: TCU pending pre-cert Maddi Tony LOAN APPROVER, RECORD KEEPER
--- NOTE | 2019-11-16 12:47 | DS.PCM_ITS ---
Discharge Date and Diagnosis Date of Admission: 11/06/19 Date of Discharge: 11/16/19 - Primary Discharge Diagnosis #1 acute COPD exacerbation, triggered by influenza B. #2 acute on chronic hypoxic respiratory failure. #3 influenza B. #4 acute encephalopathy, and anxiety. #5 schizophrenia. - Secondary Discharge Diagnosis Chronic Problems COPD (chronic obstructive pulmonary disease) (Chronic) Hyperlipidemia (Chronic) Diabetes mellitus type 2 in obese (Chronic) HTN (hypertension) (Chronic) Schizophrenia (Chronic) Hospital Course and Treatment Imaging Results: Clinical Impression(s) from Imaging Studies Chest X-Ray 11/06/19 15:34 IMPRESSION: Near complete clearing of bilateral pulmonary infiltrates evident on the prior study. Electronically Signed: Kash Chua MD ([place]) at 16:31 EST , Service support , Chest X-Ray 11/11/19 15:39 IMPRESSION: Improving inspiration and improving infiltrates of the left upper and lower lung zones now with minimal infiltrates in the left lower lobe, approaching baseline appearance of October 26, 2015. Electronically Signed: Kiersten Murdock MD at 16:21 EST , Service support , Videofluoroscopic Swallow 11/15/19 00:00 IMPRESSION: Penetration and evacuation with ingestion of thin liquids. The swallow study findings were discussed with the patient by the speech pathologist at the conclusion of the examination. Please see speech pathology report for more information and recommendations. Electronically Signed: Trenton Sanchez, at 15:23 EST , Service support , Operations: None Procedures: None Summary of Care Provided: Patient seen and examined on the day of discharge and appeared to be stable to be discharged to alf facility. Patient is alert and awake, no complaints apart from mild cough. She is calm, coherent and appropriate. She remains on 4 L of oxygen and later, she came down to 3 L, other vital signs are stable. This is a 53 years old female patient presented to the emergency room from longterm because of worsening shortness of breath and she was found to have acute COPD exacerbation with acute on chronic hypoxic respiratory failure which was treated by influenza B and also found to have acute encephalopathy attributed to side effects of multiple antipsychotic medications. #1 acute COPD exacerbation/acute on chronic hypoxic respiratory failure: Treated with steroids, antibiotics and bronchodilators. Chest x-ray showed no acute infiltrate. Pneumonia ruled out. Patient required up to 6 L of oxygen. With above-mentioned treatment, her respiratory status improved and she was able to come down to 4 L. On the day of discharge, her pulse ox was maintained on 3 L of oxygen which is her baseline at home. Patient discharged home on tapering course of prednisone, doxycycline to complete total of 7 days of treatment, discharged on oxygen at 3 L. #2 influenza B: Treated with Tamiflu, discharged on Tamiflu to complete total 5 days of treatment. #3 acute encephalopathy/anxiety: Attributed to side effects of antipsychotic medications. Patient has been on clozapine, clonazepam, Effexor and risperidone. Doses of all these medications adjusted. Patient has been more calm, alert and oriented. Doses of clozapine, chronic pain and risperidone adjusted as per discharge instructions. #4 type 2 diabetes mellitus: Discharged on the same doses of Lantus, glipizide and sliding scale. #5 schizophrenia: doses of clozapine, Klonopin and risperidone adjusted as above. Plan to follow-up with psychiatry as outpatient in 1 week. Patient discharged to alf facility in a stable condition, discharged on prednisone taper, discharged on doxycycline to complete total 7 days of treatment, discharged on Tamiflu to complete total of 5 days of treatment, discharged on oxygen at 3 to 4 L, her antipsychotic medications adjusted according to discharge instructions, plan to follow-up with psychiatry as outpatient in 1 week, recommended follow-up with PCP in 1 to 2 weeks. This note was generated with [employer] dictation software. It may contain incorrect words, spelling, and punctuation that were not noted in checking the note before signing. - Physical Exam Vitals/I&O's: Vital Signs Temp Pulse Resp BP Pulse Ox 98.6 F 102 H 20 H 131/75 H 95 11/16/19 09:47 11/16/19 10:08 11/16/19 10:08 11/16/19 09:47 11/16/19 10:08 Oxygen Flow Rate (L/min) 3 Oxygen Delivery Method Nasal Cannula Weight: 179 lb 7.3 oz Body Mass Index (BMI) 37.3 Intake and Output for Last 24 Hours 11/14/19 11/15/19 11/16/19 23:59 23:59 23:59 Intake Total 1210 / 1410 1537 / 1537 100 / 100 Output Total 550 / 550 600 / 600 700 / 700 Balance 660 / 860 937 / 937 -600 / -600 General: Alert, Oriented x3, Cooperative HEENT: PERRLA, EOMI, Normocephalic Oral: Moist Mucosa, No Gingival or Mucosal Lesions/ Ulcerations Neck: Supple, No JVD, Negative Carotid Bruits, Trachea Midline, Thyroid Normal Size and Texture Lungs: Clear to auscultation, No wheeze, No rales, Diminished, Rhonchi Cardiovascular: Regular rate, Regular Rhythm, Normal S1, Normal S2, PMI Normal Abdomen: Bowel Sounds Present, Soft, Non Tender, Non-Distended, No Hepato- splenomegaly, Obese Extremities: No clubbing, No cyanosis, No edema Skin: No rashes, No breakdown Neurological: Cranial nerves II-XII grossly intact, Neuro grossly intact Psych/Mental Status: Appropriate, Flat Affect Laboratory Results 11/15/19 16:42: POC Glucose 316 H 11/15/19 22:09: POC Glucose 312 H 11/16/19 06:55: POC Glucose 138 H Discharge Diet: Low fat/ Low Cholesterol, 1800 Calorie Control Diet, 2000 mg Sodium Diet Discharge Activity: Return to Normal Activity Home Medications: Medications to take at Discharge Clozapine [Clozaril] 100 mg PO LUNCH 03/28/14 glipiZIDE [Glucotrol] 5 mg PO BIDAC 03/28/14 metFORMIN HCl [Glucophage] 1,000 mg PO BID 03/28/14 Insulin Glargine [Lantus SoloStar Pen] 42 units SC DAILY 12/23/14 Desvenlafaxine Succinate [Pristiq] 50 mg PO DAILY 07/25/15 Risperidone Microspheres [Risperdal Consta] 50 mg IM Q14D 07/25/15 Pravastatin Sodium 20 mg PO QHS 12/18/16 Cholecalciferol (Vitamin D3) [Vitamin D3] 1,000 unit PO DAILY 10/17/17 Petal-3 Fatty Acids/Fish Oil [Fish Oil 1,000 mg Capsule] 1 each PO DAILY 10/17/17 Albuterol IH (ProAir) [Proair Hfa] 2 puff INHALATION PRN PRN 07/22/18 Aspirin [Aspirin EC] 325 mg PO DAILY 07/22/18 Fluticasone/Vilanterol [Breo Ellipta 100-25 Mcg INH] 1 puff IH DAILY 07/22/18 Lubiprostone [Amitiza] 24 mcg PO BID 07/22/18 Acetaminophen [Mapap] 500 - 1,000 mg PO TID PRN PRN 10/31/19 Magnesium Hydroxide [Milk Of Magnesia] 30 ml PO DAILY PRN PRN 10/31/19 Omeprazole 20 mg PO DAILY 10/31/19 Oxymetazoline HCl [Nasal Relief] 2 spray NS PRN PRN 10/31/19 Pramipexole Di-HCl [Mirapex] 0.5 mg PO QHS 10/31/19 Umeclidinium [place] Inhaler [Incruse Ellipta Inhaler] 1 puff IH DAILY 10/31/19 Wheat Dextrin [Benefiber] 15 ml PO DAILY 10/31/19 Benzonatate [Tessalon Perle] 100 mg PO Q8H PRN PRN #12 cap 11/09/19 Prednisone 10 mg PO UD #30 tab 11/09/19 Clonazepam [Klonopin] 0.5 mg PO TIDCM #30 tab 11/15/19 Clozapine [Clozaril] 100 mg PO LUNCH #30 tab 11/15/19 Clozapine [Clozaril] 150 mg PO DINNER #0 11/15/19 Clozapine [Clozaril] 150 mg PO QHS #0 11/15/19 Doxycycline 100 mg PO BID #6 cap 11/15/19 Ferrous Gluconate 324 mg PO DAILY@0800 #30 tab 11/15/19 Ferrous Gluconate 325 mg PO DAILY #0 11/15/19 Furosemide [Lasix] 40 mg PO DAILY #30 tab 11/15/19 Oseltamivir Phosphate [Tamiflu] 75 mg PO BID #4 cap 11/15/19 Potassium Chloride [K-Dur] 20 meq PO DAILY #14 tab 11/15/19 Risperidone [Risperdal] 1 mg PO DAILY #30 tab 11/15/19 Following Prescrptions Were Given to Patient: Clozapine [Clozaril] 100 mg PO LUNCH #30 tab Prescription Printed Doxycycline 100 mg PO BID #6 cap Prescription Printed Ferrous Gluconate 324 mg PO DAILY@0800 #30 tab Prescription Printed Clonazepam [Klonopin] 0.5 mg PO TIDCM #30 tab Prescription Printed Furosemide [Lasix] 40 mg PO DAILY #30 tab Prescription Printed Prednisone 10 mg PO UD #30 tab Prescription Printed Risperidone [Risperdal] 1 mg PO DAILY #30 tab Prescription Printed Oseltamivir Phosphate [Tamiflu] 75 mg PO BID #4 cap Prescription Printed Benzonatate [Tessalon Perle] 100 mg PO Q8H PRN PRN #12 cap PRN Reason: Cough Transmission Status: Received by [facility] Primary Care Physician: Boris Vance MD [Primary Care Provider] - Please follow up with your Primary Care Physician in: 1-2 weeks Please Follow Up With: Koby Ramirez MD When: 1-2 weeks Please Follow Up With: Lorraine Springer MD When: 1 week. Disposition: Long-Term facility Minutes spent on discharge:: 33 Patient Condition:: Stable Medical Necessity - Tobacco Use Smoking Status: Former smoker Meaningful Use Info Meaningful Use Diagnoses (Choose all that apply): None applicable Code Visit Inpatient E&M: 13902 Disch Hosp
== END 2019-11-16 11:35 | disposition skilled nursing facility (03) | DRG 190 ==
LOC: ED 18:04 → PCU 21:25 → MS3 11-09 18:29 → ICU 11-11 17:10 → MS3 11-12 13:10
PROVIDERS: Internal Medicine; Physician Assistant; Admitting Provider Hospitalist; Emergency Provider Emergency Medicine; PCP Family Medicine; Visit Provider Hospitalist
DX: J44.1 Chronic obstructive pulmonary disease with (acute) exacerbation (principal); J96.21 Acute and chronic respiratory failure with hypoxia; G92 Toxic encephalopathy; I50.32 Chronic diastolic (congestive) heart failure; I24.8 Other forms of acute ischemic heart disease; J10.1 Influenza due to other identified influenza virus with other respiratory manifestations; G47.33 Obstructive sleep apnea (adult) (pediatric); F20.9 Schizophrenia, unspecified; K58.9 Irritable bowel syndrome, unspecified; E66.9 Obesity, unspecified; E78.5 Hyperlipidemia, unspecified; F41.9 Anxiety disorder, unspecified; T43.505A Adverse effect of unspecified antipsychotics and neuroleptics, initial encounter; I11.0 Hypertensive heart disease with heart failure; E11.65 Type 2 diabetes mellitus with hyperglycemia; Z87.891 Personal history of nicotine dependence; Z68.37 Body mass index [BMI] 37.0-37.9, adult; Z79.4 Long term (current) use of insulin
CPT/HCPCS: 36415; 36600; 71045; 74230; 80048; 80053; 81001; 82803; 82962; 83605; 83735; 83880; 84100; 84484; 85025; 87040; 87086; 87449; 87633; 92526; 92610; 92611; 93005; 94003; 94640; 94660; 94667; 94668; 97110; 97116; 97163; 97166; 97530; 97535; 99251; 99285; J7030; A4216; G0463; J1940

== ENCOUNTER 2019-11-16 11:40 | Inpatient (IN) | payer MEDICARE, MEDICAID, SELFPAY ==
[2019-11-06 20:09] VITALS: BMI 37.3
[2019-11-16 11:53] VITALS: BP 116/74; PULSE 121; RESP 22; TEMP 36.3; O2SAT 94; BMI 34.3
[2019-11-16 14:28] VITALS: O2SAT 94
--- NOTE | 2019-11-16 15:38 | NURSING ---
pt normally gets risperdone injections at Dr Lew's office every other Friday, last dose October 18, 2019. spoke with Walker from inpatient pharmacy and as our hospital does not carry the medication, they recommended that we set up an appointment with Dr Lew for her next injection, and check with family for transportation options. spoke with Melony, pt legal guardian, and she reported that pt machine adjuster leader case trim, Leola, provides transportation for pt for injections. message left with Leola asking for return phone call to determine when appointment can be made and discuss patient transportation.
[2019-11-16] MEDS: Oxymetazoline 0.05% 1 SPRAY SPRAY.BTL 2 SPRAY NS (16:58)
[2019-11-16] MEDS: clonazePAM 0.5 MG Tablet PO (16:59)
[2019-11-16] MEDS: Doxycycline 100 MG CAPSULE PO (17:00)
[2019-11-16] MEDS: metFORMIN HCl 1,000 MG Tablet 1000 MG PO (17:00)
[2019-11-16] MEDS: glipiZIDE 5 MG Tablet PO (17:00)
[2019-11-16] MEDS: Fluticasone/Salmeterol 232-14 Inhaler 1 PUFF IH (17:01)
[2019-11-16] MEDS: Oseltamivir Phosphate 75 MG Capsule PO (17:01)
[2019-11-16] MEDS: Lubiprostone 24 MCG Capsule PO (17:02)
[2019-11-16] MEDS: Pravastatin 20 MG Tablet PO (20:48)
[2019-11-16] MEDS: Pramipexole Di-HCl 0.5 MG Tablet PO (20:49)
[2019-11-16 20:51] LABS: Bedside Glucose 207 mg/dL (70-110)
[2019-11-16] MEDS: Glucerna Shake 120 ML LIQUID PO (20:51)
[2019-11-16] MEDS: Sodium Chloride 0.65% 1 SPRAY SPRAY.BTL NASAL (20:52)
--- NOTE | 2019-11-16 20:56 | HP.PCM_ITS ---
Problem List (1) Debility Status: Acute (2) Acute respiratory failure with hypoxia Status: Acute (3) Influenza B Status: Acute (4) Elevated troponin Status: Acute (5) Fecal impaction Status: Chronic (6) Edema Status: Chronic (7) GERD (gastroesophageal reflux disease) Status: Chronic (8) Restless leg syndrome Status: Chronic (9) Anxiety Status: Chronic (10) Diabetes mellitus Status: Chronic (11) Depression Status: Chronic (12) Hypokalemia Status: Chronic (13) Vitamin D deficiency Status: Chronic (14) Benzodiazepine dependence Status: Chronic (15) COPD exacerbation Status: Acute (16) COPD (chronic obstructive pulmonary disease) Status: Chronic (17) Hyperlipidemia Status: Chronic (18) HTN (hypertension) Status: Chronic (19) Schizophrenia Status: Chronic (20) Dysphagia Status: Acute History of Present Illness Date of Admission: 11/16/19 Chief Complaint: Here for rehabilitation, strengthening, prior to discharge to correction. The patient is a 53 year old Female with below past medical history presented to [facility] 11/06/2019 with shortness of breath. 11/06/2019 Chest X-ray near complete clearing bilateral pulmonary infiltrates compared to 11/01/2019 film. 11/06/2019 EKG sinus tachycardia, low voltage QRS. COPD, lives in correction. COPD attack, cough, wheezing. Dry cough, scattered wheezes. Recent admission for pneumonia. Troponin 0.15. Aerosols, IV Fluids, Hycodan, CPAP given. 11/06/2019 Admit to Hospital. Duoneb, Albuterol, Prednisone, Augmentin for COPD Exacerbation. Tessalon perle for coughing. Oxygen as needed, BiPAP at night. Clonazepam for anxiety. Elevated troponin, cycle enzymes, Aspirin 325MG, Add Atorvastatin. Panculture, Lactic acid, rule out sepsis. 11/08/2019 NSTEMI secondary to demand ischemia. 11/09/2019 Patient was supposed to go to correction, but unable due to oxygen requirement. 11/10/2019 COPD exacerbation improved. 11/11/2019 Requiring oxygen 3 to 4 Liters/minute. Aerosol, Steroid, Doxycycline for COPD exacerbation. 11/11/2019 Chest X-ray showed minimal left lower lobe infiltrates, near baseline. Left upper lobe infiltrate improved. 11/12/2019 Dr. Spain recommended adjusting schizophrenia medications for oversedation. Aspiration precautions. continue bronchodilators, steroids, wean supplemental oxygen. Incentive spirometry, mobilize patient. Nocturnal CPAP. Patient usually sees Dr. Ramirez. 11/12/2019 Move to ICU, patient refused BiPAP, now on 5 Liters oxygen. Encephalopathy secondary to polypharmacy for schizophrenia. Pneumonia ruled out. Doxycycline, prednisone taper, oxygen for COPD exacerbation. Tamiflu x 5 days for influenza B. Clozapine, Clonazepam, Risperidone doses adjusted with good results, follow up with psychiatry. 11/16/2019 Admit to TCU with debility, here for rehabilitation, strengthening, prior to discharge to correction. Past Medical History Past Medical History (Chronic Problems): Chronic Problems Fecal impaction (Chronic) Edema (Chronic) GERD (gastroesophageal reflux disease) (Chronic) Restless leg syndrome (Chronic) Anxiety (Chronic) Diabetes mellitus (Chronic) Depression (Chronic) Hypokalemia (Chronic) Vitamin D deficiency (Chronic) Benzodiazepine dependence (Chronic) COPD (chronic obstructive pulmonary disease) (Chronic) Hyperlipidemia (Chronic) Diabetes mellitus type 2 in obese (Chronic) HTN (hypertension) (Chronic) Schizophrenia (Chronic) Allergies No Known Allergies Allergy (Verified 11/06/19 15:26) Home Medications: Ambulatory Orders Medication Instructions Recorded Clozapine [Clozaril] 100 mg PO LUNCH 03/28/14 glipiZIDE [Glucotrol] 5 mg PO BIDAC 03/28/14 metFORMIN HCl [Glucophage] 1,000 mg PO BID 03/28/14 Insulin Glargine [Lantus SoloStar 42 units SC DAILY 12/23/14 Pen] Desvenlafaxine Succinate [Pristiq] 50 mg PO DAILY 07/25/15 Risperidone Microspheres 50 mg IM Q14D 07/25/15 [Risperdal Consta] Pravastatin Sodium 20 mg PO QHS 12/18/16 Cholecalciferol (Vitamin D3) 1,000 unit PO DAILY 10/17/17 [Vitamin D3] [place]-3 Fatty Acids/Fish Oil [Fish 1 each PO DAILY 10/17/17 Oil 1,000 mg Capsule] Albuterol IH (ProAir) [Proair Hfa] 2 puff INHALATION PRN PRN 07/22/18 Aspirin [Aspirin EC] 325 mg PO DAILY 07/22/18 Fluticasone/Vilanterol [Breo 1 puff IH DAILY 07/22/18 Ellipta 100-25 Mcg INH] Lubiprostone [Amitiza] 24 mcg PO BID 07/22/18 Acetaminophen [Mapap] 1,000 mg PO Q8H PRN PRN 10/31/19 Magnesium Hydroxide [Milk Of 30 ml PO DAILY PRN PRN 10/31/19 Magnesia] Omeprazole 20 mg PO DAILY 10/31/19 Oxymetazoline HCl [Nasal Relief] 2 spray NS PRN PRN 10/31/19 Pramipexole Di-HCl [Mirapex] 0.5 mg PO QHS 10/31/19 Umeclidinium [place] Inhaler 1 puff IH DAILY 10/31/19 [Incruse Ellipta Inhaler] Wheat Dextrin [Benefiber] 15 ml PO DAILY 10/31/19 Benzonatate [Tessalon Perle] 100 mg PO Q8H PRN PRN #12 cap 11/09/19 Clozapine [Clozaril] 150 mg PO DINNER #0 11/15/19 Clozapine [Clozaril] 150 mg PO QHS #0 11/15/19 Clonazepam [Klonopin] 0.5 mg PO TIDCM 11/16/19 Doxycycline 100 mg PO BID 11/16/19 Ferrous Gluconate 325 mg PO DAILY 11/16/19 Furosemide [Lasix] 40 mg PO DAILY 11/16/19 Oseltamivir Phosphate [Tamiflu] 75 mg PO BID 11/16/19 Potassium Chloride [K-Dur] 20 meq PO DAILY 11/16/19 Prednisone 10 mg PO UD 11/16/19 Risperidone [Risperdal] 1 mg PO DAILY 11/16/19 Surgical History: cholecystectomy, - - Jaw surgery Psychiatric History: Anxiety, Depression, Schizophrenia [employer]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 Smoking Status: Former smoker Tobacco Use: Cigarettes Alcohol: None Drugs: None - *Family History Paternal History Items: Cancer, COPD, - - from a farm accident Maternal History Items: Heart Disease, - Review of Systems Constitutional: Reports: Weakness, Fatigue. Denies: Chills, Fever, Weight Change HEENT: Denies: Head Aches, Sinus Congestion, Sinus Drainage Cardiovascular: Denies: Chest Pain, Palpitations Respiratory: Denies: Cough, Shortness of breath at rest, Sputum production Gastrointestinal: Denies: Abdominal Pain, Nausea, Vomiting Genitourinary: Denies: Dysuria Musculoskeletal: Denies: Joint Pain, Joint Tenderness Skin: Denies: Rash, Wounds Neurological: Denies: Numbness, Tingling, Focal weakness Psychiatric: Denies: Anxiety, Depression, Homicidal Ideations, Suicidal Ideations Hematologic/ Lymphatic: Denies: Easy Bruising, Easy Bleeding VTE Information - Inpt Only VTE Present on Admission: No VTE Mechan Device Prophylaxis: Knee High PATRICIA Hose VTE Pharm Prophylaxis ordered?: Yes Patient Problems: Active and Suspected Problems Debility (Acute) Acute respiratory failure with hypoxia (Acute) Influenza B (Acute) Elevated troponin (Acute) Dysphagia (Acute) - Physical Exam Vitals/I&O's: Vital Signs Temp Pulse Resp BP Pulse Ox 97.3 F L 121 H 22 H 116/74 94 11/16/19 11:53 11/16/19 11:53 11/16/19 11:53 11/16/19 11:53 11/16/19 14:28 Oxygen Flow Rate (L/min) 3 Oxygen Delivery Method Nasal Cannula Weight: 82.418 kg Body Mass Index (BMI) 34.3 Intake and Output for Last 24 Hours 11/14/19 11/15/19 11/16/19 23:59 23:59 23:59 Intake Total 490 / 490 Balance 490 / 490 General: Alert, Oriented x3, Cooperative HEENT: Atraumatic, PERRLA, EOMI, Normocephalic Neck: Supple, No JVD, Negative Carotid Bruits Lungs: Clear to auscultation, Normal air movement Cardiovascular: Regular rate, No murmurs Abdomen: Bowel Sounds Present, Soft, Non Tender Extremities: No edema, Capillary Refill Less than 3 Seconds Skin: No rashes, No breakdown Musculoskeletal: No Tenderness to Palpation of Joints or Extremities Neurological: Cranial nerves II-XII grossly intact Psych/Mental Status: Normal Affect, Appropriate Laboratory Results 11/16/19 20:48: POC Glucose 207 H Current Medications Acetaminophen (Tylenol) 1,000 mg PO Q8H PRN PRN PRN Reason: Pain 1-10 or Fever Albuterol Sulfate (Ventolin Hfa (Sp)) 2 puff INHALATION Q4H PRN PRN PRN Reason: SOB/WHEEZING Aspirin (Ecotrin) 325 mg PO DAILY@0800 JAQUI Benzonatate (Tessalon Perle) 100 mg PO Q8H PRN PRN PRN Reason: COUGH Cholecalciferol (Vitamin D) 1,000 unit PO DAILY [facility] Clonazepam (Klonopin) 0.5 mg PO TIDCM [facility] Last Admin: 11/16/19 16:59 Dose: 0.5 mg Documented by: Clozapine (Clozaril) 150 mg PO QHS [facility] Clozapine (Clozaril) 150 mg PO DINNER [facility] Last Admin: 11/16/19 17:00 Dose: 150 mg Documented by: Clozapine (Clozaril) 100 mg PO LUNCH [facility] Doxycycline Monohydrate (Doxycycline) 100 mg PO BID [facility] Stop: 11/19/19 06:01 Last Admin: 11/16/19 17:00 Dose: 100 mg Documented by: Ferrous Gluconate (Ferrous Gluconate) 324 mg PO DAILY@1200 [facility] Furosemide (Lasix) 40 mg PO DAILY [facility] Glipizide (Glucotrol) 5 mg PO BIDAC [facility] Last Admin: 11/16/19 17:00 Dose: 5 mg Documented by: Insulin Glargine (Lantus (Bkc)) 42 units SC DAILY@1600 [facility] Lubiprostone (Amitiza) 24 mcg PO BID [facility] Last Admin: 11/16/19 17:02 Dose: 24 mcg Documented by: Magnesium Hydroxide (Milk Of Magnesia) 30 ml PO DAILY PRN PRN PRN Reason: Constipation [facility] Last Admin: 11/16/19 17:00 Dose: 1,000 mg Documented by: Non-Formulary Medication (Risperidone Microspheres) 50 mg IM Q14D [facility] Nutritional Formula (Lactose Free) (Glucerna Shake) 120 ml PO 4X/DAY [facility] [id number] Ethyl Esters (Lovaza) 1 gm PO DAILY [facility] Oseltamivir Phosphate (Tamiflu) 75 mg PO BID [facility] Stop: 11/18/19 06:01 Last Admin: 11/16/19 17:01 Dose: 75 mg Documented by: Oxymetazoline HCl (Afrin (Bkc)) 2 spray NS BID PRN PRN PRN Reason: CONGESTION Last Admin: 11/16/19 16:58 Dose: 2 spray Documented by: Pantoprazole Sodium (Protonix) 20 mg PO DAILY [facility] Potassium Chloride (K-Dur) 20 meq PO DAILY@0800 [facility] Pramipexole Dihydrochloride (Mirapex) 0.5 mg PO QHS [facility] Pravastatin Sodium (Pravachol) 20 mg PO QHS [facility] Prednisone () 40 mg PO DAILY@0800 [facility]; Taper Stop: 11/29/19 07:59 Risperidone (Risperdal) 1 mg PO DAILY [facility] Fluticasone/Salmeterol (Fluticasone-Salmeterol 232-14) 1 puff IH Q12 [facility] Last Admin: 11/16/19 17:01 Dose: 1 puff Documented by: Sodium Chloride ([facility] [place] [facility] Nasal [place]) 1 spray NASAL TID PRN PRN PRN Reason: NASAL DRYNESS Tuberculin PPD (Tubersol, Aplisol, Ppd) 5 tu ID X1 ONE Stop: 11/17/19 10:01 Tuberculin PPD (Tubersol, Aplisol, Ppd) 5 tu ID X1 ONE Stop: 11/24/19 10:01 Umeclidinium [place] (Incruse Ellipta Inhaler) 1 puff IH DAILY [facility] Venlafaxine HCl (Effexor Xr) 37.5 mg PO DAILY [facility] Assessment/Plan All Active Problems Debility (Acute) Acute respiratory failure with hypoxia (Acute) Influenza B (Acute) Elevated troponin (Acute) Dysphagia (Acute) COPD exacerbation (Acute) Anxiety attack (Acute) 53 year old female with below past medical history hospitalized for acute respiratory failure with hypoxia secondary to COPD exacerbation from influenza B, complicated by NSTEMI secondary to demand ischemia, admitted to TCU with debility, here for rehabilitation, strengthening, prior to discharge to correction. * Debility - PT/OT. * Dysphagia - ST. * Pain - Tylenol 1000MG Q8H PRN Pain (1-10). * Bowel - Miralax 17GM daily, Senna/colace 1 tablet twice daily, Dulcolax 10MG daily PRN. * Adult immunization - Administer Prevnar 13, Pneumovax 23, Fluzone as appropriate. * DVT prophylaxis - Lovenox 40MG SC daily. * COPD - Advair 232-14 1 puff BID, Incruse 1 puff daily, Ventolin 2 puffs Q4H PRN, Prednisone taper. * NSTEMI - Aspirin 325MG daily. * Cough - Tessalon Perle 100MG Q8H PRN. * Vitamin D deficiency - D3 1000IU daily. * Anxiety - Clonazepam 0.5MG TID, stable chronic care home use, GDR not indicated. * Schizophrenia - Clozapine 100MG, 150MG, 150MG, Risperidone 1MG daily, follow up with Dr. 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 * Depression - Venlafaxine XR 37.5MG daily. * Bronchitis - Doxycycline 100MG BID thru 11/19/2019. * Iron deficiency anemia - Ferrous Gluconate 324MG daily. * Edema - Lasix 40MG daily. * Diabetes Mellitus II - Metformin 1000MG twice daily, Glipizide 5MG BIDAC, Lantus 42 units daily, monitor blood sugars. * Nutrition - Glucerna Shake 120ML 4x/day. * Fecal impaction of colon - Amitiza 24MCG BID. * Hyperlipidemia - Pravastatin 20MG QHS, Lovaza 1G daily. * Influenza B - Tamiflu 75MG BID thru 11/18/2019. * Rhinitis - Afrin 2 sprays NS BID PRN. * GERD - Pantoprazole 20MG daily. * Hypokalemia - K-Dur 20MEQ daily. * Restless Leg syndrome - Mirapex 0.5MG QHs. * Dry Nose - [facility] Nasal spray 1 spray TID PRN.
[2019-11-17 05:47] LABS: Absolute Lymphocyte Count 5.39 X10^3/uL (0.83-4.51); Absolute Neutrophil Count 6.8 X10^3/uL (2.0-7.7); Basophil# 0.02 X10^3/uL; Basophil% 0.1 % (0-1); Eosinophil# 0.04 X10^3/uL; Eosinophils% 0.3 % (0-5); Hematocrit 42.7 % (37-47); Hemoglobin 13.9 g/dL (12.0-15.0); Lymphocyte # 5.39 X10^3/ul (4.0); Mean Corp Hgb Conc 32.6 g/dL (32-36); Mean Corpuscular Hgb 29.8 pg (27.0-32.0); Mean Corpuscular Volume 91.4 fL (81-99); Mean Platelet Vol. 10.4 fl (6.2-12.0); Monocyte# 1.12 X10^3/uL; Monocyte% 8.3 % (0-10); NRBC Flagged by Analyzer 0 % (0-5); Neutrophil # 6.82 X10^3/uL (2.7-7.7); Neutrophil % 50.6 % (47-70); POSITIVE DIFFERENTIAL YES; POSITIVE MORPHOLOGY YES; Platelet Count 252 K/mm3 (150-450); RBC Distribution Width CV 13.4 % (11.6-14.6); RBC Distribution Width SD 45.3 fl (35.1-43.9); Red Blood Count 4.67 M/mm3 (4.2-5.4); White Blood Count 13.5 K/mm3 (4.4-11.0)
[2019-11-17 05:50] LABS: Differential Indicated SCAN CRITERIA MET
[2019-11-17 06:01] LABS: Bedside Glucose 99 mg/dL (70-110)
[2019-11-17] MEDS: Glucerna Shake 120 ML LIQUID PO ×4 (06:12→20:26)
[2019-11-17] MEDS: Omega-3 Acid Ethyl Esters 1 GM Capsule PO (06:13)
[2019-11-17] MEDS: RisperiDONE 1 MG Tablet PO (06:13)
[2019-11-17] MEDS: Furosemide 40 MG Tablet PO (06:13)
[2019-11-17] MEDS: Pantoprazole Sodium 20 MG Tablet PO (06:13)
[2019-11-17] MEDS: Doxycycline 100 MG CAPSULE PO ×3 (06:14→17:30)
[2019-11-17] MEDS: Venlafaxine XR 37.5 MG Capsule PO (06:14)
[2019-11-17] MEDS: Polyethylene Glycol 3350 17 GM PACKET PO (06:14)
[2019-11-17] MEDS: Lubiprostone 24 MCG Capsule PO ×3 (06:14→17:29)
[2019-11-17] MEDS: Senna/Docusate Sodium 1 Tablet PO ×3 (06:14→17:30)
[2019-11-17 06:15] LABS: Anion Gap 5 (5-15); BUN 14 mg/dL (7-18); Calcium,Total 8.9 mg/dL (8.5-10.1); Chloride 105 mmol/L (98-107); Creatinine, Serum 0.58 mg/dL (0.55-1.02); EST Glomerular Filtration Rate 114 mL/min (>60); Est Glom Filt Rate - Afr Amer 138 mL/min (>60); Glucose 116 mg/dL (74-106); Potassium 3.8 mmol/L (3.5-5.1); Sodium Level 137 mmol/L (136-145)
[2019-11-17] MEDS: Oseltamivir Phosphate 75 MG Capsule PO ×3 (06:15→17:29)
[2019-11-17 06:16] LABS: Differential Comment SCANNED
[2019-11-17] MEDS: Enoxaparin 40 MG/0.4 ML Syringe SC (06:20)
[2019-11-17] MEDS: Fluticasone/Salmeterol 232-14 Inhaler 1 PUFF IH ×2 (06:26→17:32)
[2019-11-17] MEDS: Umeclidinium Bromide Inhaler 1 PUFF IH (06:26)
[2019-11-17] MEDS: glipiZIDE 5 MG Tablet PO ×3 (08:34→17:30)
[2019-11-17] MEDS: metFORMIN HCl 1,000 MG Tablet 1000 MG PO ×3 (08:34→17:29)
[2019-11-17] MEDS: Aspirin E.C. 325 MG Tablet PO (08:34)
[2019-11-17] MEDS: predniSONE 10 MG Tablet PO (08:34)
[2019-11-17] MEDS: clonazePAM 0.5 MG Tablet PO ×4 (08:35→17:30)
--- NOTE | 2019-11-17 08:51 | NURSING ---
all care done in room due to pt in precautions for influenza b.
[2019-11-17] MEDS: Tuberculin,Purif.prot.deriv. 50 TU/ML Vial 5 ML ID (09:30)
[2019-11-17] MEDS: Oxymetazoline 0.05% 1 SPRAY SPRAY.BTL 2 SPRAY NS (09:32)
[2019-11-17 10:55] LABS: Bedside Glucose 259 mg/dL (70-110)
[2019-11-17] MEDS: Ferrous Gluconate 324 MG Tablet PO (11:46)
[2019-11-17] MEDS: Acetaminophen 500 MG Tablet 1000 MG PO (12:31)
--- NOTE | 2019-11-17 14:23 | PCM.PN.RX ---
<Sarina Shin - Last Filed: 11/17/19 14:23> Progress Note - Pharmacy Subjective: TCU Admission Objective: Allergies No Known Allergies Allergy (Verified 11/06/19 15:26) Current Medications Generic Name Dose Route Start Last Admin Trade Name Freq PRN Reason Stop Dose Admin Acetaminophen 1,000 mg 11/16/19 12:53 11/17/19 12:31 Tylenol PO 1,000 mg Q8H PRN PRN Administration Pain 1-10 or Fever Albuterol Sulfate 2 puff 11/16/19 13:36 Ventolin Hfa (Sp) INHALATION Q4H PRN PRN SOB/WHEEZING Aspirin 325 mg 11/17/19 08:00 11/17/19 08:34 Ecotrin PO 325 mg DAILY@0800 [facility] Administration Benzonatate 100 mg 11/16/19 12:53 Tessalon Perle PO Q8H PRN PRN COUGH Bisacodyl 10 mg 11/16/19 21:27 Dulcolax PO DAILY PRN PRN Constipation Cholecalciferol 1,000 unit 11/17/19 06:00 11/17/19 06:15 Vitamin D PO 1,000 unit DAILY JAQUI Administration Clonazepam 0.5 mg 11/16/19 17:45 11/17/19 12:30 Klonopin PO 0.5 mg TIDCM JAQUI Administration Clozapine 150 mg 11/16/19 22:00 11/16/19 20:48 Clozaril PO 150 mg QHS JAQUI Administration Clozapine 150 mg 11/16/19 17:00 11/16/19 17:00 Clozaril PO 150 mg DINNER JAQUI Administration Clozapine 100 mg 11/17/19 12:00 11/17/19 11:46 Clozaril PO 100 mg LUNCH JAQUI Administration Doxycycline Monohydrate 100 mg 11/16/19 18:00 11/17/19 06:14 Doxycycline PO 11/19/19 06:01 100 mg BID JAQUI Administration Enoxaparin Sodium 40 mg 11/17/19 06:00 11/17/19 06:20 Lovenox SC 40 mg DAILY@0600 JAQUI Administration Ferrous Gluconate 324 mg 11/17/19 12:00 11/17/19 11:46 Ferrous Gluconate PO 324 mg DAILY@1200 JAQUI Administration Furosemide 40 mg 11/17/19 06:00 11/17/19 06:13 Lasix PO 40 mg DAILY JAQUI Administration Glipizide 5 mg 11/16/19 16:30 11/17/19 08:34 Glucotrol PO 5 mg BIDAC JAQUI Administration Insulin Glargine 42 units 11/17/19 16:00 Lantus ([facility]) SC DAILY@1600 JAQUI Lubiprostone 24 mcg 11/16/19 18:00 11/17/19 06:14 Amitiza PO 24 mcg BID JAQUI Administration Metformin HCl 1,000 mg 11/16/19 17:00 11/17/19 08:34 Glucophage PO 1,000 mg BIDCM JAQUI Administration Nutritional Formula (Lactose Free) 120 ml 11/16/19 22:00 11/17/19 11:48 Glucerna Shake PO 120 ml 4X/DAY JAQUI Administration [id number] Ethyl Esters 1 gm 11/17/19 06:00 11/17/19 06:13 Lovaza PO 1 gm DAILY JAQUI Administration Oseltamivir Phosphate 75 mg 11/16/19 18:00 11/17/19 06:15 Tamiflu PO 11/18/19 06:01 75 mg BID JAQUI Administration Oxymetazoline HCl 2 spray 11/16/19 12:53 11/17/19 09:32 Afrin ([facility]) NS 2 spray BID PRN PRN Administration CONGESTION Pantoprazole Sodium 20 mg 11/17/19 06:00 11/17/19 06:13 Protonix PO 20 mg DAILY JAQUI Administration Polyethylene Glycol 17 gm 11/17/19 06:00 11/17/19 06:14 Miralax PO 17 gm DAILY JAQUI Administration Potassium Chloride 20 meq 11/17/19 08:00 11/17/19 08:34 K-Dur PO 20 meq DAILY@0800 JAQUI Administration Pramipexole Dihydrochloride 0.5 mg 11/16/19 22:00 11/16/19 20:49 Mirapex PO 0.5 mg QHS JAQUI Administration Pravastatin Sodium 20 mg 11/16/19 22:00 11/16/19 20:48 Pravachol PO 20 mg QHS JAQUI Administration Prednisone 40 mg 11/17/19 08:00 11/17/19 08:34 PO 11/29/19 07:59 40 mg DAILY@0800 [facility] Administration Taper Risperidone 1 mg 11/17/19 06:00 11/17/19 06:13 Risperdal PO 1 mg DAILY JAQUI Administration Fluticasone/Salmeterol 1 puff 11/16/19 18:00 11/17/19 06:26 Fluticasone-Salmeterol 232-14 IH 1 puff Q12 JAQUI Administration Senna/Docusate Sodium 1 tablet 11/17/19 06:00 11/17/19 06:14 Senokot-S, Celia-Colace PO 1 tablet BID JAQUI Administration Sodium Chloride 1 spray 11/16/19 15:41 11/16/19 20:52 [place] Nasal [place] NASAL 1 spray TID PRN PRN Administration NASAL DRYNESS Tuberculin PPD 5 tu 11/24/19 10:00 Tubersol, Aplisol, Ppd ID 11/24/19 10:01 X1 ONE Umeclidinium [place] 1 puff 11/17/19 06:00 11/17/19 06:26 Incruse Ellipta Inhaler IH 1 puff DAILY JAQUI Administration Venlafaxine HCl 37.5 mg 11/17/19 06:00 11/17/19 06:14 Effexor Xr PO 37.5 mg DAILY JAQUI Administration Problem List Debility (Acute) Acute respiratory failure with hypoxia (Acute) Influenza B (Acute) Elevated troponin (Acute) Fecal impaction (Chronic) Edema (Chronic) GERD (gastroesophageal reflux disease) (Chronic) Restless leg syndrome (Chronic) Anxiety (Chronic) Diabetes mellitus (Chronic) Depression (Chronic) Hypokalemia (Chronic) Vitamin D deficiency (Chronic) Benzodiazepine dependence (Chronic) Dysphagia (Acute) Vital Signs Temp Pulse Resp BP Pulse Ox 97.3 F L 121 H 22 H 116/74 94 11/16/19 11:53 11/16/19 11:53 11/16/19 11:53 11/16/19 11:53 11/16/19 14:28 Oxygen Flow Rate (L/min) 2.5 Oxygen Delivery Method Nasal Cannula Weight: 82.554 kg Body Mass Index (BMI) 34.3 Sodium 137 mmol/L (136-145) 11/17/19 05:15 Potassium 3.8 mmol/L (3.5-5.1) 11/17/19 05:15 Chloride 105 mmol/L (98-107) 11/17/19 05:15 Carbon Dioxide 27.0 mmol/L (21.0-32.0) 11/17/19 05:15 Anion Gap 5 (5-15) 11/17/19 05:15 BUN 14 mg/dL (7-18) 11/17/19 05:15 Creatinine 0.58 mg/dL (0.55-1.02) 11/17/19 05:15 Est GFR (MDRD) Af Amer 138 mL/min (>60) 11/17/19 05:15 Est GFR (MDRD) Non-Af 114 mL/min (>60) 11/17/19 05:15 BUN/Creatinine Ratio 24.0 RATIO (10-20) H 11/17/19 05:15 Glucose 116 mg/dL (74-106) H 11/17/19 05:15 Assessment/Plan: 1. Pain: acetaminophen [id number] PO Q8H PRN pain (-07/22). Please continue to monitor for pain and increased PRN usage. *2. COPD: fluticasone/salmeterol 232/14mcg 1 inhalation Q12H, umeclidinium inhaler 1 inhalation daily, albuterol inhaler 2 inhalations Q4H PRN SOB/wheezing and prednisone taper (40mg PO x 3 days, 30mg PO x 3 days. 20mg PO x 3 days, 10mg PO x 3 days) thru 11/28/2019. Please continue to monitor for thrush, SOB, wheezing, anticholinergic side effects, WBC, glucose and PRN usage. Please consider holding fluticasone/salmeterol while patient is receiving systemic steroids if clinically appropriate. Thanks. 3. Bronchitis/influenza B/cough: doxycycline 100mg PO BUD through 11/19/2019, oseltamivir 75mg PO BID through 11/19/2019, benzonatate 100MG PO Q8H PRN cough. Please continue to monitor for S/S of infection, renal function, and PRN usage. 4. NSTEMI: aspirin 325mg PO DAILYCM. Please continue to monitor for S/S of bleeding. 5. DVT prophylaxis: enoxaparin 40mg SC daily. Please continue to monitor for S/S bleeding, DVT, platelets and renal function. 6. Type II diabetes mellitus: insulin glargine 42units SC daily, glipizide 5mg PO BIDAC, metformin 1000mg PO BIDCM. Please continue to monitor for hypoglycemia, A1c, glucose and renal function. 7. Iron deficiency anemia: ferrous gluconate 324mg PO daily. Please continue to monitor hemoglobin and for dark, tarry stools. 8. Edema: furosemide 40mg PO daily. Please continue to monitor renal function, electrolytes and edema. 9. Hyperlipidemia: pravastatin 20mg PO QHS and Lovaza 1Gm PO daily. Please continue to monitor lipid panel, LFTs, and for muscle pain. 10. GERD: pantoprazole 20mg PO daily. Please continue to monitor for GERD. 11. Restless leg syndrome: pramipexole 0.5mg PO daily. Please continue to monitor for restless legs and drowsiness. 12. Hypokalemia: potassium chloride 20mEq PO DAILYCM. Please continue to monitor potassium levels. 13. Fecal impaction of the colon: lubiprostone 24mcg PO BID. Please continue to monitor for diarrhea. *14. Vitamin D deficiency: cholecalciferol 1000units PO daily. I did not see a recent Vitamin D level in the patient's chart. Please consider ordering a vitamin D level now and then annually as clinically appropriate. Thanks. 15. Rhinitis/dry nose: Afrin 2 sprays nasally BID PRN congestion and [place] nasal spray 1 spray nasally TID PRN nasal dryness. Please continue to monitor for PRN usage. Psychotropic Medications: 1. Anxiety: clonazepam 0.5mg PO TIDCM. Please continue to monitor for anxiety and drowsiness. Please see physician note regarding GDR. 2. Schizophrenia: clozapine 100mg PO lunch/150mg PO dinner/150mg PO QHS and risperidone 1mg PO daily. Please continue to monitor ANC, CBC, and for extrapyramidal side effects. Please see physician note regarding GDR. *3. Depression: venlafaxine XR 37.5mg PO daily. Please consider GDR by 05/2020 if clinically appropriate. Thanks. Unnecessary Medications: None Bowel Regimen: Miralax 17gm PO daily, senna/docusate 1T PO BID, bisacodyl 10mg PO daily PRN constipation. Please continue to monitor for constipation and PRN usage. Date of Note:: 11/17/19 - Provider Comments Provider responsibility: Provider responsible to enter orders to implement recommendations <Gerry Villarreal Chi - Last Filed: 11/17/19 17:20> Progress Note - Pharmacy Subjective: [] Objective: Allergies No Known Allergies Allergy (Verified 11/06/19 15:26) Current Medications Generic Name Dose Route Start Last Admin Trade Name Freq PRN Reason Stop Dose Admin Acetaminophen 1,000 mg 11/16/19 12:53 11/17/19 12:31 Tylenol PO 1,000 mg Q8H PRN PRN Administration Pain 1-10 or Fever Albuterol Sulfate 2 puff 11/16/19 13:36 Ventolin Hfa (Sp) INHALATION Q4H PRN PRN SOB/WHEEZING Aspirin 325 mg 11/17/19 08:00 11/17/19 08:34 Ecotrin PO 325 mg DAILY@0800 JAQUI Administration Benzonatate 100 mg 11/16/19 12:53 Tessalon Perle PO Q8H PRN PRN COUGH Bisacodyl 10 mg 11/16/19 21:27 Dulcolax PO DAILY PRN PRN Constipation Cholecalciferol 1,000 unit 11/17/19 06:00 11/17/19 06:15 Vitamin D PO 1,000 unit DAILY JAQUI Administration Clonazepam 0.5 mg 11/16/19 17:45 11/17/19 12:30 Klonopin PO 0.5 mg TIDCM JAQUI Administration Clozapine 150 mg 11/16/19 22:00 11/16/19 20:48 Clozaril PO 150 mg QHS JAQUI Administration Clozapine 150 mg 11/16/19 17:00 11/16/19 17:00 Clozaril PO 150 mg DINNER JAQUI Administration Clozapine 100 mg 11/17/19 12:00 11/17/19 11:46 Clozaril PO 100 mg LUNCH JAQUI Administration Doxycycline Monohydrate 100 mg 11/16/19 18:00 11/17/19 06:14 Doxycycline PO 11/19/19 06:01 100 mg BID JAQUI Administration Enoxaparin Sodium 40 mg 11/17/19 06:00 11/17/19 06:20 Lovenox SC 40 mg DAILY@0600 JAQUI Administration Ferrous Gluconate 324 mg 11/17/19 12:00 11/17/19 11:46 Ferrous Gluconate PO 324 mg DAILY@1200 JAQUI Administration Furosemide 40 mg 11/17/19 06:00 11/17/19 06:13 Lasix PO 40 mg DAILY JAQUI Administration Glipizide 5 mg 11/16/19 16:30 11/17/19 08:34 Glucotrol PO 5 mg BIDAC JAQUI Administration Insulin Glargine 50 units 11/18/19 16:00 Lantus ([facility]) SC DAILY@1600 JAQUI Lubiprostone 24 mcg 11/16/19 18:00 11/17/19 06:14 Amitiza PO 24 mcg BID JAQUI Administration Metformin HCl 1,000 mg 11/16/19 17:00 11/17/19 08:34 Glucophage PO 1,000 mg BIDCM JAQUI Administration Nutritional Formula (Lactose Free) 120 ml 11/16/19 22:00 11/17/19 17:16 Glucerna Shake PO 120 ml 4X/DAY JAQUI Administration Fdcea-6-Ljed Ethyl Esters 1 gm 11/17/19 06:00 11/17/19 06:13 Lovaza PO 1 gm DAILY JAQUI Administration Oseltamivir Phosphate 75 mg 11/16/19 18:00 11/17/19 06:15 Tamiflu PO 11/18/19 06:01 75 mg BID JAQUI Administration Oxymetazoline HCl 2 spray 11/16/19 12:53 11/17/19 09:32 Afrin ([facility]) NS 2 spray BID PRN PRN Administration CONGESTION Pantoprazole Sodium 20 mg 11/17/19 06:00 11/17/19 06:13 Protonix PO 20 mg DAILY JAQUI Administration Polyethylene Glycol 17 gm 11/17/19 06:00 11/17/19 06:14 Miralax PO 17 gm DAILY JAQUI Administration Potassium Chloride 20 meq 11/17/19 08:00 11/17/19 08:34 K-Dur PO 20 meq DAILY@0800 JAQUI Administration Pramipexole Dihydrochloride 0.5 mg 11/16/19 22:00 11/16/19 20:49 Mirapex PO 0.5 mg QHS JAQUI Administration Pravastatin Sodium 20 mg 11/16/19 22:00 11/16/19 20:48 Pravachol PO 20 mg QHS JAQUI Administration Prednisone 40 mg 11/17/19 08:00 11/17/19 08:34 PO 11/29/19 07:59 40 mg DAILY@0800 JAQUI Administration Taper Risperidone 1 mg 11/17/19 06:00 11/17/19 06:13 Risperdal PO 1 mg DAILY JAQUI Administration Fluticasone/Salmeterol 1 puff 11/16/19 18:00 11/17/19 06:26 Fluticasone-Salmeterol 232-14 IH 1 puff Q12 JAQUI Administration Senna/Docusate Sodium 1 tablet 11/17/19 06:00 11/17/19 06:14 Senokot-S, Celia-Colace PO 1 tablet BID JAQUI Administration Sodium Chloride 1 spray 11/16/19 15:41 11/16/19 20:52 [place] Nasal [place] NASAL 1 spray TID PRN PRN Administration NASAL DRYNESS Tuberculin PPD 5 tu 11/24/19 10:00 Tubersol, Aplisol, Ppd ID 11/24/19 10:01 X1 ONE Umeclidinium [place] 1 puff 11/17/19 06:00 11/17/19 06:26 Incruse Ellipta Inhaler IH 1 puff DAILY JAQUI Administration Venlafaxine HCl 37.5 mg 11/17/19 06:00 11/17/19 06:14 Effexor Xr PO 37.5 mg DAILY JAQUI Administration Problem List Debility (Acute) Acute respiratory failure with hypoxia (Acute) Influenza B (Acute) Elevated troponin (Acute) Fecal impaction (Chronic) Edema (Chronic) GERD (gastroesophageal reflux disease) (Chronic) Restless leg syndrome (Chronic) Anxiety (Chronic) Diabetes mellitus (Chronic) Depression (Chronic) Hypokalemia (Chronic) Vitamin D deficiency (Chronic) Benzodiazepine dependence (Chronic) Dysphagia (Acute) Vital Signs Temp Pulse Resp BP Pulse Ox 97.3 F L 122 H 20 H 121/74 H 94 11/17/19 15:26 11/17/19 15:26 11/17/19 15:26 11/17/19 15:26 11/17/19 15:26 Oxygen Flow Rate (L/min) 2.5 Oxygen Delivery Method Room Air Weight: 82.554 kg Body Mass Index (BMI) 34.3 Sodium 137 mmol/L (136-145) 11/17/19 05:15 Potassium 3.8 mmol/L (3.5-5.1) 11/17/19 05:15 Chloride 105 mmol/L (98-107) 11/17/19 05:15 Carbon Dioxide 27.0 mmol/L (21.0-32.0) 11/17/19 05:15 Anion Gap 5 (5-15) 11/17/19 05:15 BUN 14 mg/dL (7-18) 11/17/19 05:15 Creatinine 0.58 mg/dL (0.55-1.02) 11/17/19 05:15 Est GFR (MDRD) Af Amer 138 mL/min (>60) 11/17/19 05:15 Est GFR (MDRD) Non-Af 114 mL/min (>60) 11/17/19 05:15 BUN/Creatinine Ratio 24.0 RATIO (10-20) H 11/17/19 05:15 Glucose 116 mg/dL (74-106) H 11/17/19 05:15 Assessment/Plan: Psychotropic Medications: Unnecessary Medications: Bowel Regimen: - Provider Comments Provider responsibility: Provider responsible to enter orders to implement recommendations Provider Comments to Recommendations by Pharmacy: Agree
--- NOTE | 2019-11-17 14:38 | CHAPLAIN ---
Type of Pastoral Visit _x__ Initial Visit ___ Follow-up Visit ___ On-call Visit ___ General Patient Visit ___ Spiritual Assessment ___ Family Conference ___ Bereavement ___ Rapid Response ___ Code Blue ___ Other (describe below) Pastoral Care Referral From _x__ Patient _x__ Family ___ Nurse ___ Physician ___ Bin Tripper Operator ___ Property Field Inspector ___ Other (describe below) Sacrament/Intervention _x__ Active listening ___ Anointing ___ Voodoo ___ Bereavement ___ Communion ___ Zully exploration ___ _x__ Life review _x__ Prayer ___ Reconciliation ___ Sacrament of Sick _x__ Supportive presence ___ Wedding ___ Other (describe below) Pastoral Comments family members are with patient; pt has mental limitations and lives in a custodial; family requests spiritual and emotional support for pt;
[2019-11-17 15:26] VITALS: BP 121/74; PULSE 122; RESP 20; TEMP 36.3; O2SAT 94
--- NOTE | 2019-11-17 15:32 | NURSING ---
Attempted to call patient's guardian and caregiver. Left message to please call the TCU unit.
--- NOTE | 2019-11-17 16:17 | NURSING ---
Received return call from Melony Willard patient's guardian. Melony stated that the patients medication will be brought to the unit. She always requested that any paperwork that needs to be signed to be faxed to the [facility] where she works.
--- NOTE | 2019-11-17 16:58 | CASEMGMT ---
Social Work Spoke with patient's guardian to discuss DC plans. Guardian states pt would not qualify for any chcf with o2 and is looking into LTP. Guardian to contact with SNFs to make referrals. Explained insurance coverage with NRD 11/19 and continued stay is not guaranteed. Will continue to follow. Ivonne Rcihard, FOLD SKIVER APPEALS ANALYST
[2019-11-17 17:01] LABS: Bedside Glucose 246 mg/dL (70-110)
--- NOTE | 2019-11-17 17:05 | NURSING ---
PER SPEECH THERAPY,PT IS NOW BEBE GUARDADO PROTOCOL. JAH GARCIA AWARE
[2019-11-17] MEDS: Pravastatin 20 MG Tablet PO (20:22)
[2019-11-17] MEDS: Pramipexole Di-HCl 0.5 MG Tablet PO (20:22)
[2019-11-17 20:40] VITALS: RESP 16
[2019-11-17 21:20] LABS: Bedside Glucose 211 mg/dL (70-110)
[2019-11-18] MEDS: Pantoprazole Sodium 20 MG Tablet PO (05:41)
[2019-11-18] MEDS: Polyethylene Glycol 3350 17 GM PACKET PO (05:41)
[2019-11-18] MEDS: Furosemide 40 MG Tablet PO (05:42)
[2019-11-18] MEDS: Venlafaxine XR 37.5 MG Capsule PO (05:42)
[2019-11-18] MEDS: Doxycycline 100 MG CAPSULE PO ×2 (05:42→17:44)
[2019-11-18] MEDS: Lubiprostone 24 MCG Capsule PO ×2 (05:42→17:44)
[2019-11-18] MEDS: Oseltamivir Phosphate 75 MG Capsule PO (05:42)
[2019-11-18] MEDS: Omega-3 Acid Ethyl Esters 1 GM Capsule PO (05:42)
[2019-11-18] MEDS: Senna/Docusate Sodium 1 Tablet PO ×2 (05:42→17:44)
[2019-11-18] MEDS: Enoxaparin 40 MG/0.4 ML Syringe SC (05:43)
[2019-11-18] MEDS: RisperiDONE 1 MG Tablet PO (05:44)
[2019-11-18] MEDS: Glucerna Shake 120 ML LIQUID PO (05:50)
[2019-11-18] MEDS: Fluticasone/Salmeterol 232-14 Inhaler 1 PUFF IH ×2 (05:53→17:52)
[2019-11-18] MEDS: Umeclidinium Bromide Inhaler 1 PUFF IH (05:55)
[2019-11-18 06:20] LABS: Bedside Glucose 55 mg/dL (70-110)
[2019-11-18 06:35] LABS: Bedside Glucose 100 mg/dL (70-110)
--- NOTE | 2019-11-18 06:50 | NURSING ---
Addendum entered by Elizabet Smith 11/18/19 11:39: Dr Villarreal updated and adjusted cecelia ortez Original Note: Blood sugar 55 this AM. OJ and peanut butter and crackers given. Recheck 100.
[2019-11-18] MEDS: predniSONE 10 MG Tablet PO (08:13)
[2019-11-18] MEDS: clonazePAM 0.5 MG Tablet PO ×3 (08:14→17:45)
[2019-11-18] MEDS: metFORMIN HCl 1,000 MG Tablet 1000 MG PO ×2 (08:14→16:07)
[2019-11-18] MEDS: glipiZIDE 5 MG Tablet PO ×2 (08:15→16:08)
[2019-11-18] MEDS: Aspirin E.C. 325 MG Tablet PO (08:17)
[2019-11-18 08:50] LABS: Bedside Glucose 182 mg/dL (70-110)
[2019-11-18 11:01] LABS: Bedside Glucose 238 mg/dL (70-110)
[2019-11-18] MEDS: Ferrous Gluconate 324 MG Tablet PO (11:51)
[2019-11-18] MEDS: Glucerna Shake 120 ML LIQUID 60 ML PO ×3 (11:53→22:34)
--- NOTE | 2019-11-18 12:33 | NURSING ---
Addendum entered by Elizabet Smith 11/18/19 15:03: pt last had injection on 11/03/19 per psych office at [facility], so pt ok to get today to get her back on schedule Original Note: notified [facility] regarding risperdal IM injection. they stated pt last had on Oct 18, message left for doctor to see if ok to start giving today. awaiting return call.
[2019-11-18 13:36] VITALS: BP 124/74; PULSE 125; RESP 18; TEMP 36.7; O2SAT 96
[2019-11-18] MEDS: Acetaminophen 500 MG Tablet 1000 MG PO (16:07)
--- NOTE | 2019-11-18 16:18 | NURSING ---
spoke with tim alonso, guardian, faxed admit papers for her signature per her request, awaiting for return fax w/her signature.
--- NOTE | 2019-11-18 16:19 | NURSING ---
RISPERDAL GIVEN IM IN LEFT SHOULDER BY THIS NURSE. PT TOLERATED WELL.
[2019-11-18 17:30] LABS: Bedside Glucose 218 mg/dL (70-110)
[2019-11-18 18:41] VITALS: PULSE 116
[2019-11-18 21:46] LABS: Bedside Glucose 120 mg/dL (70-110)
[2019-11-18] MEDS: Pramipexole Di-HCl 0.5 MG Tablet PO (22:27)
[2019-11-18] MEDS: Pravastatin 20 MG Tablet PO (22:28)
[2019-11-18 22:40] VITALS: PULSE 100; RESP 16
[2019-11-19] MEDS: Enoxaparin 40 MG/0.4 ML Syringe SC (05:28)
[2019-11-19] MEDS: RisperiDONE 1 MG Tablet PO (05:29)
[2019-11-19] MEDS: Omega-3 Acid Ethyl Esters 1 GM Capsule PO (05:29)
[2019-11-19] MEDS: Lubiprostone 24 MCG Capsule PO ×2 (05:29→17:28)
[2019-11-19] MEDS: Furosemide 40 MG Tablet PO (05:29)
[2019-11-19] MEDS: Pantoprazole Sodium 20 MG Tablet PO (05:29)
[2019-11-19] MEDS: Polyethylene Glycol 3350 17 GM PACKET PO (05:29)
[2019-11-19] MEDS: Venlafaxine XR 37.5 MG Capsule PO (05:29)
[2019-11-19] MEDS: Senna/Docusate Sodium 1 Tablet PO ×2 (05:30→17:28)
[2019-11-19] MEDS: Glucerna Shake 120 ML LIQUID 60 ML PO ×4 (05:34→20:36)
[2019-11-19] MEDS: Doxycycline 100 MG CAPSULE PO (05:36)
[2019-11-19] MEDS: Fluticasone/Salmeterol 232-14 Inhaler 1 PUFF IH ×2 (05:38→17:40)
[2019-11-19] MEDS: Umeclidinium Bromide Inhaler 1 PUFF IH (05:41)
[2019-11-19 06:21] LABS: Bedside Glucose 92 mg/dL (70-110)
[2019-11-19] MEDS: clonazePAM 0.5 MG Tablet PO ×3 (08:04→17:33)
[2019-11-19] MEDS: glipiZIDE 5 MG Tablet PO ×2 (08:05→17:30)
[2019-11-19] MEDS: metFORMIN HCl 1,000 MG Tablet 1000 MG PO ×2 (08:05→17:30)
[2019-11-19] MEDS: Aspirin E.C. 325 MG Tablet PO (08:05)
[2019-11-19] MEDS: predniSONE 10 MG Tablet PO (08:05)
--- NOTE | 2019-11-19 09:48 | CASEMGMT ---
Social Work Spoke with patient's guardian whom just toured [facility] and would referral made. Referral sent. Will continue to follow. KAI UreñaW
[2019-11-19 09:52] VITALS: RESP 16
[2019-11-19] MEDS: Ferrous Gluconate 324 MG Tablet PO (11:44)
[2019-11-19 14:04] VITALS: BP 117/64; PULSE 122; RESP 18; TEMP 36.6; O2SAT 93
[2019-11-19 16:15] LABS: Bedside Glucose 250 mg/dL (70-110)
[2019-11-19] MEDS: Benzonatate 100 MG Capsule PO (20:31)
[2019-11-19] MEDS: Pravastatin 20 MG Tablet PO (20:32)
[2019-11-19] MEDS: Pramipexole Di-HCl 0.5 MG Tablet PO (20:33)
[2019-11-19 20:55] LABS: Bedside Glucose 157 mg/dL (70-110)
[2019-11-20] MEDS: Oxymetazoline 0.05% 1 SPRAY SPRAY.BTL 2 SPRAY NS (00:42)
[2019-11-20] MEDS: Polyethylene Glycol 3350 17 GM PACKET PO (05:48)
[2019-11-20] MEDS: Enoxaparin 40 MG/0.4 ML Syringe SC (05:48)
[2019-11-20] MEDS: Furosemide 40 MG Tablet PO (05:49)
[2019-11-20] MEDS: Venlafaxine XR 37.5 MG Capsule PO (05:49)
[2019-11-20] MEDS: Senna/Docusate Sodium 1 Tablet PO ×2 (05:49→17:18)
[2019-11-20] MEDS: Omega-3 Acid Ethyl Esters 1 GM Capsule PO (05:49)
[2019-11-20] MEDS: Pantoprazole Sodium 20 MG Tablet PO (05:49)
[2019-11-20] MEDS: Lubiprostone 24 MCG Capsule PO ×2 (05:50→17:18)
[2019-11-20] MEDS: RisperiDONE 1 MG Tablet PO (05:50)
[2019-11-20] MEDS: Glucerna Shake 120 ML LIQUID 60 ML PO ×4 (05:51→20:53)
[2019-11-20] MEDS: Bisacodyl 5 MG Tablet 10 MG PO ×2 (05:52→10:31)
[2019-11-20] MEDS: Fluticasone/Salmeterol 232-14 Inhaler 1 PUFF IH ×2 (05:55→17:22)
[2019-11-20] MEDS: Benzonatate 100 MG Capsule PO (06:01)
[2019-11-20] MEDS: Umeclidinium Bromide Inhaler 1 PUFF IH (06:02)
[2019-11-20] MEDS: metFORMIN HCl 1,000 MG Tablet 1000 MG PO ×2 (07:50→16:27)
[2019-11-20] MEDS: glipiZIDE 5 MG Tablet PO ×2 (07:50→16:24)
[2019-11-20] MEDS: Aspirin E.C. 325 MG Tablet PO (07:52)
[2019-11-20] MEDS: predniSONE 10 MG Tablet PO (07:53)
[2019-11-20] MEDS: clonazePAM 0.5 MG Tablet PO ×3 (07:54→17:20)
[2019-11-20 11:01] LABS: Bedside Glucose 190 mg/dL (70-110)
[2019-11-20] MEDS: Ferrous Gluconate 324 MG Tablet PO (11:06)
[2019-11-20 14:27] VITALS: BP 109/66; PULSE 119; RESP 18; TEMP 36.5; O2SAT 97
[2019-11-20 16:01] LABS: Bedside Glucose 221 mg/dL (70-110)
[2019-11-20] MEDS: Pramipexole Di-HCl 0.5 MG Tablet PO (20:52)
[2019-11-20] MEDS: Pravastatin 20 MG Tablet PO (20:52)
[2019-11-20 21:00] VITALS: RESP 15
[2019-11-20 21:16] LABS: Bedside Glucose 105 mg/dL (70-110)
[2019-11-21] MEDS: Benzonatate 100 MG Capsule PO ×2 (01:59→10:04)
[2019-11-21] MEDS: Furosemide 40 MG Tablet PO (04:58)
[2019-11-21] MEDS: Glucerna Shake 120 ML LIQUID 60 ML PO ×4 (04:58→21:20)
[2019-11-21] MEDS: Pantoprazole Sodium 20 MG Tablet PO (04:58)
[2019-11-21] MEDS: Lubiprostone 24 MCG Capsule PO ×2 (04:59→18:14)
[2019-11-21] MEDS: Senna/Docusate Sodium 1 Tablet PO ×2 (04:59→18:15)
[2019-11-21] MEDS: Omega-3 Acid Ethyl Esters 1 GM Capsule PO (04:59)
[2019-11-21] MEDS: Polyethylene Glycol 3350 17 GM PACKET PO (04:59)
[2019-11-21] MEDS: Venlafaxine XR 37.5 MG Capsule PO (04:59)
[2019-11-21] MEDS: RisperiDONE 1 MG Tablet PO (04:59)
[2019-11-21] MEDS: Enoxaparin 40 MG/0.4 ML Syringe SC (05:00)
[2019-11-21] MEDS: Fluticasone/Salmeterol 232-14 Inhaler 1 PUFF IH ×2 (05:10→18:17)
[2019-11-21] MEDS: Umeclidinium Bromide Inhaler 1 PUFF IH (05:11)
[2019-11-21 06:21] LABS: Bedside Glucose 94 mg/dL (70-110)
[2019-11-21] MEDS: glipiZIDE 5 MG Tablet PO ×2 (07:52→16:18)
[2019-11-21] MEDS: Aspirin E.C. 325 MG Tablet PO (07:52)
[2019-11-21] MEDS: metFORMIN HCl 1,000 MG Tablet 1000 MG PO ×2 (07:52→16:18)
[2019-11-21] MEDS: predniSONE 10 MG Tablet PO (07:53)
[2019-11-21] MEDS: clonazePAM 0.5 MG Tablet PO ×3 (07:55→18:15)
[2019-11-21 10:09] VITALS: PULSE 98
[2019-11-21 11:01] LABS: Bedside Glucose 163 mg/dL (70-110)
[2019-11-21] MEDS: Ferrous Gluconate 324 MG Tablet PO (12:04)
[2019-11-21] MEDS: Magnesium Citrate 300 ML PO (12:58)
[2019-11-21] MEDS: guaiFENesin 10 ML UDC (200MG/10ML) PO (12:59)
[2019-11-21 14:29] VITALS: BP 128/80; PULSE 129; RESP 20; TEMP 35.9; O2SAT 96
--- NOTE | 2019-11-21 15:06 | NURSING ---
n/o for magnesium citrate d/t constipation, pt refusing anything rectally at this time.
[2019-11-21 16:11] LABS: Bedside Glucose 276 mg/dL (70-110)
[2019-11-21] MEDS: Pramipexole Di-HCl 0.5 MG Tablet PO (21:19)
[2019-11-21] MEDS: Pravastatin 20 MG Tablet PO (21:19)
[2019-11-21 21:30] LABS: Bedside Glucose 111 mg/dL (70-110)
[2019-11-22] MEDS: Glucerna Shake 120 ML LIQUID 60 ML PO ×4 (05:36→21:52)
[2019-11-22] MEDS: Pantoprazole Sodium 20 MG Tablet PO (05:37)
[2019-11-22] MEDS: Enoxaparin 40 MG/0.4 ML Syringe SC (05:37)
[2019-11-22] MEDS: Lubiprostone 24 MCG Capsule PO ×2 (05:37→17:23)
[2019-11-22] MEDS: Venlafaxine XR 37.5 MG Capsule PO (05:38)
[2019-11-22] MEDS: RisperiDONE 1 MG Tablet PO (05:38)
[2019-11-22] MEDS: Polyethylene Glycol 3350 17 GM PACKET PO (05:38)
[2019-11-22] MEDS: Furosemide 40 MG Tablet PO (05:38)
[2019-11-22] MEDS: Senna/Docusate Sodium 1 Tablet PO ×2 (05:41→17:26)
[2019-11-22] MEDS: Omega-3 Acid Ethyl Esters 1 GM Capsule PO (05:42)
[2019-11-22] MEDS: Fluticasone/Salmeterol 232-14 Inhaler 1 PUFF IH ×2 (05:44→17:30)
[2019-11-22] MEDS: Umeclidinium Bromide Inhaler 1 PUFF IH (05:44)
[2019-11-22 06:16] LABS: Bedside Glucose 112 mg/dL (70-110)
[2019-11-22] MEDS: predniSONE 10 MG Tablet PO (07:50)
[2019-11-22] MEDS: metFORMIN HCl 1,000 MG Tablet 1000 MG PO ×2 (07:50→17:23)
[2019-11-22] MEDS: Aspirin E.C. 325 MG Tablet PO (07:51)
[2019-11-22] MEDS: glipiZIDE 5 MG Tablet PO ×2 (07:51→17:22)
[2019-11-22] MEDS: clonazePAM 0.5 MG Tablet PO ×3 (07:53→17:28)
--- NOTE | 2019-11-22 07:56 | NURSING ---
ALL CARE GIVEN IN ROOM DUE TO PT IN PRECAUTIONS FOR INFLUENZA B.
[2019-11-22 08:47] VITALS: O2SAT 95
[2019-11-22 11:00] LABS: Bedside Glucose 212 mg/dL (70-110)
[2019-11-22] MEDS: Ferrous Gluconate 324 MG Tablet PO (11:44)
[2019-11-22] MEDS: Acetaminophen 500 MG Tablet 1000 MG PO (13:41)
[2019-11-22 16:24] VITALS: BP 116/62; PULSE 101; RESP 22; TEMP 36.1; O2SAT 98
--- NOTE | 2019-11-22 16:39 | CASEMGMT ---
Social Work Spoke with [facility] and out of network with Robert and has not out of network costs. [facility] does not have isolation bed available to accept pt. Notified guardian and provided list of in network facilities and encouraged guardian to speak with facilities to determine out of pocket costs that Medicaid would not pay for if choosing out of network facilities. Guardian will notify SW to make other referrals. Will continue to follow. KAI UreñaW
[2019-11-22 17:16] LABS: Bedside Glucose 185 mg/dL (70-110)
[2019-11-22 19:30] VITALS: PULSE 108; RESP 20; O2SAT 88
[2019-11-22 21:01] LABS: Bedside Glucose 124 mg/dL (70-110)
[2019-11-22] MEDS: Pravastatin 20 MG Tablet PO (21:49)
[2019-11-22] MEDS: Pramipexole Di-HCl 0.5 MG Tablet PO (21:49)
[2019-11-22] MEDS: guaiFENesin 10 ML UDC (200MG/10ML) PO (21:53)
--- NOTE | 2019-11-23 01:46 | NURSING ---
All care provided in room d/t patient on isolation precautions for Influenza.
[2019-11-23 06:06] LABS: Bedside Glucose 73 mg/dL (70-110)
[2019-11-23] MEDS: Glucerna Shake 120 ML LIQUID 60 ML PO ×4 (06:10→21:17)
[2019-11-23] MEDS: Pantoprazole Sodium 20 MG Tablet PO (06:11)
[2019-11-23] MEDS: Lubiprostone 24 MCG Capsule PO ×2 (06:11→17:19)
[2019-11-23] MEDS: Senna/Docusate Sodium 1 Tablet PO ×2 (06:11→17:19)
[2019-11-23] MEDS: Venlafaxine XR 37.5 MG Capsule PO (06:11)
[2019-11-23] MEDS: RisperiDONE 1 MG Tablet PO (06:11)
[2019-11-23] MEDS: Furosemide 40 MG Tablet PO (06:11)
[2019-11-23] MEDS: Omega-3 Acid Ethyl Esters 1 GM Capsule PO (06:11)
[2019-11-23] MEDS: Enoxaparin 40 MG/0.4 ML Syringe SC (06:11)
[2019-11-23] MEDS: Polyethylene Glycol 3350 17 GM PACKET PO (06:12)
[2019-11-23] MEDS: Umeclidinium Bromide Inhaler 1 PUFF IH (06:14)
[2019-11-23] MEDS: Fluticasone/Salmeterol 232-14 Inhaler 1 PUFF IH ×2 (06:16→17:24)
[2019-11-23 06:25] LABS: Bedside Glucose 100 mg/dL (70-110)
[2019-11-23] MEDS: clonazePAM 0.5 MG Tablet PO ×3 (07:46→17:19)
[2019-11-23] MEDS: metFORMIN HCl 1,000 MG Tablet 1000 MG PO ×2 (07:46→17:19)
[2019-11-23] MEDS: Aspirin E.C. 325 MG Tablet PO (07:46)
[2019-11-23] MEDS: glipiZIDE 5 MG Tablet PO ×2 (07:46→17:19)
[2019-11-23] MEDS: predniSONE 10 MG Tablet PO (07:47)
[2019-11-23 07:48] VITALS: O2SAT 95
--- NOTE | 2019-11-23 07:52 | NURSING ---
all care given in room due to pt in precautions for influenza b.
[2019-11-23 09:40] VITALS: PULSE 115; RESP 18; O2SAT 97
[2019-11-23 11:01] LABS: Bedside Glucose 147 mg/dL (70-110)
--- NOTE | 2019-11-23 11:41 | CASEMGMT ---
Social Work Insurance issued LCD 11/25, DC 11/26. senior strategy manager explained Medicare [place] Law and pt can receive part B therapies even if the facility is not in network with insurance. Spoke with guardian and provided her this information. Guardian will notify SW of SNFs to refer to for DC 11/26. Will continue to follow. Ivonne Richard, SPECIAL SERVICES COORDINATOR PACKING AND SHIPPING CLERK
[2019-11-23] MEDS: Ferrous Gluconate 324 MG Tablet PO (11:44)
[2019-11-23 15:33] VITALS: BP 119/72; PULSE 113; RESP 18; TEMP 36.3; O2SAT 97
[2019-11-23] MEDS: Sodium Chloride 0.65% 1 SPRAY SPRAY.BTL NASAL (16:04)
--- NOTE | 2019-11-23 16:24 | CHAPLAIN ---
Type of Pastoral Visit ___ Initial Visit _x__ Follow-up Visit ___ On-call Visit ___ General Patient Visit ___ Spiritual Assessment ___ Family Conference ___ Bereavement ___ Rapid Response ___ Code Blue ___ Other (describe below) Pastoral Care Referral From _x__ Patient ___ Family ___ Nurse ___ Physician ___ Relations Liaison ___ Earth Science Faculty Member ___ Other (describe below) Sacrament/Intervention _x__ Active listening ___ Anointing ___ Buddhism ___ Bereavement ___ Communion ___ Zully exploration ___ ___ Life review _x__ Prayer ___ Reconciliation ___ Sacrament of Sick _x__ Supportive presence ___ Wedding ___ Other (describe below) Pastoral Comments
[2019-11-23 16:55] LABS: Bedside Glucose 172 mg/dL (70-110)
--- NOTE | 2019-11-23 19:34 | DCINST_ITS ---
- Discharge Diagnoses Current Active Problems: Current Active and Chronic Problems Debility (Acute) Acute respiratory failure with hypoxia (Acute) Influenza B (Acute) Elevated troponin (Acute) Fecal impaction (Chronic) Edema (Chronic) GERD (gastroesophageal reflux disease) (Chronic) Restless leg syndrome (Chronic) Anxiety (Chronic) Diabetes mellitus (Chronic) Depression (Chronic) Hypokalemia (Chronic) Vitamin D deficiency (Chronic) Benzodiazepine dependence (Chronic) Dysphagia (Acute) You will use the following diet at home:: Regular, Fluid restricted (specify 2000 mls, 1500 mls) - 1800 mls. Your food should be the consistency of: Mechanical soft (ground) Your liquids should be the consistency of: Honey Thick Discharge Activity: Return to Normal Activity, May Shower, Use Walker Weight Bearing Status: Weight bearing as tolerated Call your doctor if you observe: Fever of 101 or Higher, Inability to urinate, Inability to have a bowel movement, Shortness of breath, Chest pain, Uncont rolled pain Allergies/Adverse Reactions: Allergies No Known Allergies Allergy (Verified 11/06/19 15:26) Medications to take at Discharge Clozapine [Clozaril] 100 mg PO LUNCH 03/28/14 glipiZIDE [Glucotrol] 5 mg PO BIDAC 03/28/14 metFORMIN HCl [Glucophage] 1,000 mg PO BID 03/28/14 Desvenlafaxine Succinate [Pristiq] 50 mg PO DAILY 07/25/15 Pravastatin Sodium 20 mg PO QHS 12/18/16 Cholecalciferol (Vitamin D3) [Vitamin D3] 1,000 unit PO DAILY 10/17/17 [place]-3 Fatty Acids/Fish Oil [Fish Oil 1,000 mg Capsule] 1 each PO DAILY 10/17/17 Albuterol IH (ProAir) [Proair Hfa] 2 puff INHALATION PRN PRN 07/22/18 Aspirin [Aspirin EC] 325 mg PO DAILY 07/22/18 Fluticasone/Vilanterol [Breo Ellipta 100-25 Mcg INH] 1 puff IH DAILY 07/22/18 Lubiprostone [Amitiza] 24 mcg PO BID 07/22/18 Acetaminophen [Mapap] 1,000 mg PO Q8H PRN PRN 10/31/19 Omeprazole 20 mg PO DAILY 10/31/19 Oxymetazoline HCl [Nasal Relief] 2 spray NS PRN PRN 10/31/19 Pramipexole Di-HCl [Mirapex] 0.5 mg PO QHS 10/31/19 Umeclidinium [place] Inhaler [Incruse Ellipta Inhaler] 1 puff IH DAILY 10/31/19 Benzonatate [Tessalon Perle] 100 mg PO Q8H PRN PRN #12 cap 11/09/19 Clozapine [Clozaril] 150 mg PO DINNER #0 11/15/19 Clozapine [Clozaril] 150 mg PO QHS #0 11/15/19 Ferrous Gluconate 325 mg PO DAILY 11/16/19 Furosemide [Lasix] 40 mg PO DAILY 11/16/19 Potassium Chloride [K-Dur] 20 meq PO DAILY 11/16/19 Risperidone [Risperdal] 1 mg PO DAILY 11/16/19 Bisacodyl [Dulcolax] 10 mg PO DAILY PRN PRN tab 11/23/19 Clonazepam [Klonopin] 0.5 mg PO TIDCM #45 tab 11/23/19 Guaifenesin [Robitussin] 10 ml PO Q6H PRN PRN udc 11/23/19 Insulin Glargine [Lantus SoloStar Pen] 35 units SUBCUT DAILY@1600 pen 11/23/19 Sodium Chloride 0.65% [[place] Nasal [place]] 1 spray NASAL TID PRN PRN spray.btl 11/23/19 The following prescriptions were given: Clonazepam [Klonopin] 0.5 mg PO TIDCM #45 tab Prescription Printed Primary Care Physician: Boris Vance MD [Primary Care Provider] - Please follow up with your Primary Care Physician in: 1 week. Test Results: Test results from this visit will be discussed in further detail at your follow- up appointment, if applicable. Proposed Discharge Date: 11/26/19
--- NOTE | 2019-11-23 19:37 | DS.PCM_ITS ---
Discharge Date and Diagnosis - Problem List Patient Problems: Active and Suspected Problems Debility (Acute) Acute respiratory failure with hypoxia (Acute) Influenza B (Acute) Elevated troponin (Acute) Dysphagia (Acute) Date of Admission: 11/16/19 Date of Discharge: 11/26/19 - Primary Discharge Diagnosis Active and Suspected Problems Debility (Acute) Acute respiratory failure with hypoxia (Acute) Influenza B (Acute) Elevated troponin (Acute) Dysphagia (Acute) - Secondary Discharge Diagnosis Chronic Problems Fecal impaction (Chronic) Edema (Chronic) GERD (gastroesophageal reflux disease) (Chronic) Restless leg syndrome (Chronic) Anxiety (Chronic) Diabetes mellitus (Chronic) Depression (Chronic) Hypokalemia (Chronic) Vitamin D deficiency (Chronic) Benzodiazepine dependence (Chronic) COPD (chronic obstructive pulmonary disease) (Chronic) Hyperlipidemia (Chronic) Diabetes mellitus type 2 in obese (Chronic) HTN (hypertension) (Chronic) Schizophrenia (Chronic) Hospital Course and Treatment Imaging Results: 11/16/19 18:34 Diet: Fluid Restriction Food consistency:: Mechanical Soft/Ground Liquid Consistency:: Honey Thick Dietary Modifications:: Fluid Restricted Diet Is pt able to select menu?: Yes Diet Comments: Close supervision, 1800 FR unable to enter in computer Labs (Last 48 Hours) 11/21/19 11/22/19 11/22/19 21:24 06:11 10:53 POC Glucose 111 H 112 H 212 H 11/22/19 11/22/19 11/23/19 17:05 20:55 06:03 POC Glucose 185 H 124 H 73 11/23/19 11/23/19 11/23/19 06:22 10:54 16:53 POC Glucose 100 147 H 172 H Operations: None Procedures: None Summary of Care Provided: The patient is a 53 year old Female with below past medical history hospitalized for acute respiratory failure with hypoxia secondary to COPD exacerbation from influenza B, complicated by NSTEMI secondary to demand ischemia, admitted to TCU with debility, here for rehabilitation, strengthening, prior to discharge to custodial. Unable to discharge to custodial due to oxygen demand. Discharge to roasterman placement, intermediate level of care. Patient Problems: Active and Suspected Problems Debility (Acute) Acute respiratory failure with hypoxia (Acute) Influenza B (Acute) Elevated troponin (Acute) Dysphagia (Acute) - Physical Exam Vitals/I&O's: Vital Signs Temp Pulse Resp BP Pulse Ox 97.3 F L 113 H 18 119/72 97 11/23/19 15:33 11/23/19 15:33 11/23/19 15:33 11/23/19 15:33 11/23/19 15:33 Oxygen Flow Rate (L/min) 3 Oxygen Delivery Method Nasal Cannula Weight: 84.17 kg Body Mass Index (BMI) 34.3 Intake and Output for Last 24 Hours 11/21/19 11/22/19 11/23/19 23:59 23:59 23:59 Intake Total 1645 / 1645 1480 / 1480 1500 / 1500 Output Total 200 / 200 300 / 300 Balance 1645 / 1645 1280 / 1280 1200 / 1200 Laboratory Results 11/22/19 20:55: POC Glucose 124 H 11/23/19 06:03: POC Glucose 73 11/23/19 06:22: POC Glucose 100 11/23/19 10:54: POC Glucose 147 H 11/23/19 16:53: POC Glucose 172 H Current Medications Acetaminophen (Tylenol) 1,000 mg PO Q8H PRN PRN PRN Reason: Pain 1-10 or Fever Last Admin: 11/22/19 13:41 Dose: 1,000 mg Documented by: Albuterol Sulfate (Ventolin Hfa (Sp)) 2 puff INHALATION Q4H PRN PRN PRN Reason: SOB/WHEEZING Last Admin: 11/22/19 19:47 Dose: 2 inhaler Documented by: Aspirin (Ecotrin) 325 mg PO DAILY@0800 [facility] Last Admin: 11/23/19 07:46 Dose: 325 mg Documented by: Benzonatate (Tessalon Perle) 100 mg PO Q8H PRN PRN PRN Reason: COUGH Last Admin: 11/21/19 10:04 Dose: 100 mg Documented by: Bisacodyl (Dulcolax) 10 mg PO DAILY PRN PRN PRN Reason: Constipation Last Admin: 11/20/19 10:31 Dose: 10 mg Documented by: Cholecalciferol (Vitamin D) 1,000 unit PO DAILY [facility] Last Admin: 11/23/19 06:11 Dose: 1,000 unit Documented by: Clonazepam (Klonopin) 0.5 mg PO TIDCM [facility] Last Admin: 11/23/19 17:19 Dose: 0.5 mg Documented by: Clozapine (Clozaril) 150 mg PO QHS [facility] Last Admin: 11/22/19 21:48 Dose: 150 mg Documented by: Clozapine (Clozaril) 150 mg PO DINNER [facility] Last Admin: 11/23/19 17:20 Dose: 150 mg Documented by: Clozapine (Clozaril) 100 mg PO LUNCH [facility] Last Admin: 11/23/19 11:43 Dose: 100 mg Documented by: Enoxaparin Sodium (Lovenox) 40 mg SC DAILY@0600 [facility] Last Admin: 11/23/19 06:11 Dose: 40 mg Documented by: Ferrous Gluconate (Ferrous Gluconate) 324 mg PO DAILY@1200 [facility] Last Admin: 11/23/19 11:44 Dose: 324 mg Documented by: Furosemide (Lasix) 40 mg PO DAILY [facility] Last Admin: 11/23/19 06:11 Dose: 40 mg Documented by: Glipizide (Glucotrol) 5 mg PO BIDAC [facility] Last Admin: 11/23/19 17:19 Dose: 5 mg Documented by: Glucagon () 1 mg IM .X1 PRN PRN Reason: Hypoglycemia Guaifenesin (Robitussin) 10 ml PO Q6H PRN PRN PRN Reason: COUGH Last Admin: 11/22/19 21:53 Dose: 10 ml Documented by: Dextrose (Dextrose 10%-Water) 250 mls @ 999 mls/hr IV .Q16M PRN; Protocol PRN Reason: HYPOGLYCEMIA Insulin Glargine (Lantus (Bkc)) 35 units SC DAILY@1600 [facility] Last Admin: 11/23/19 17:22 Dose: 35 u Documented by: Lubiprostone (Amitiza) 24 mcg PO BID [facility] Last Admin: 11/23/19 17:19 Dose: 24 mcg Documented by: Metformin HCl (Glucophage) 1,000 mg PO BIDCM [facility] Last Admin: 11/23/19 17:19 Dose: 1,000 mg Documented by: Nutritional Formula (Lactose Free) (Glucerna Shake) 60 ml PO 4X/DAY [facility] Last Admin: 11/23/19 17:19 Dose: 60 ml Documented by: [id number] Ethyl Esters (Lovaza) 1 gm PO DAILY [facility] Last Admin: 11/23/19 06:11 Dose: 1 gm Documented by: Oxymetazoline HCl (Afrin (Bkc)) 2 spray NS BID PRN PRN PRN Reason: CONGESTION Last Admin: 11/20/19 00:42 Dose: 2 spray Documented by: Pantoprazole Sodium (Protonix) 20 mg PO DAILY [facility] Last Admin: 11/23/19 06:11 Dose: 20 mg Documented by: Polyethylene Glycol (Miralax) 17 gm PO DAILY [facility] Last Admin: 11/23/19 06:12 Dose: 17 gm Documented by: Potassium Chloride (K-Dur) 20 meq PO DAILY@0800 [facility] Last Admin: 11/23/19 07:46 Dose: 20 meq Documented by: Pramipexole Dihydrochloride (Mirapex) 0.5 mg PO QHS [facility] Last Admin: 11/22/19 21:49 Dose: 0.5 mg Documented by: Pravastatin Sodium (Pravachol) 20 mg PO QHS [facility] Last Admin: 11/22/19 21:49 Dose: 20 mg Documented by: Prednisone () 20 mg PO DAILY@0800 [facility]; Taper Stop: 11/29/19 07:59 Last Admin: 11/23/19 07:47 Dose: 20 mg Documented by: Risperidone (Risperdal) 1 mg PO DAILY [facility] Last Admin: 11/23/19 06:11 Dose: 1 mg Documented by: Fluticasone/Salmeterol (Fluticasone-Salmeterol 232-14) 1 puff IH Q12 [facility] Last Admin: 11/23/19 17:24 Dose: 1 puff Documented by: Senna/Docusate Sodium (Senokot-S, Celia-Colace) 1 tablet PO BID [facility] Last Admin: 11/23/19 17:19 Dose: 1 tablet Documented by: Sodium Chloride ([place] Nasal [place]) 1 spray NASAL TID PRN PRN PRN Reason: NASAL DRYNESS Last Admin: 11/23/19 16:04 Dose: 1 spray Documented by: Tuberculin PPD (Tubersol, Aplisol, Ppd) 5 tu ID X1 ONE Stop: 11/24/19 10:01 Umeclidinium [place] (Incruse Ellipta Inhaler) 1 puff IH DAILY [facility] Last Admin: 11/23/19 06:14 Dose: 1 inhaler Documented by: Venlafaxine HCl (Effexor Xr) 37.5 mg PO DAILY [facility] Last Admin: 11/23/19 06:11 Dose: 37.5 mg Documented by: Discharge Diet: - - 1800 mls fluid restriction, Mechanical soft/honey thick. Discharge Activity: Return to Normal Activity, May Shower, Use Walker Weight Bearing Status: Weight bearing as tolerated Call your doctor if you observe: Fever of 101 or Higher, Inability to urinate, Inability to have a bowel movement, Shortness of breath, Chest pain, Uncontrolled pain Home Medications: Medications to take at Discharge Clozapine [Clozaril] 100 mg PO LUNCH 03/28/14 glipiZIDE [Glucotrol] 5 mg PO BIDAC 03/28/14 metFORMIN HCl [Glucophage] 1,000 mg PO BID 03/28/14 Desvenlafaxine Succinate [Pristiq] 50 mg PO DAILY 07/25/15 Pravastatin Sodium 20 mg PO QHS 12/18/16 Cholecalciferol (Vitamin D3) [Vitamin D3] 1,000 unit PO DAILY 10/17/17 Burke-3 Fatty Acids/Fish Oil [Fish Oil 1,000 mg Capsule] 1 each PO DAILY 10/17/17 Albuterol IH (ProAir) [Proair Hfa] 2 puff INHALATION PRN PRN 07/22/18 Aspirin [Aspirin EC] 325 mg PO DAILY 07/22/18 Fluticasone/Vilanterol [Breo Ellipta 100-25 Mcg INH] 1 puff IH DAILY 07/22/18 Lubiprostone [Amitiza] 24 mcg PO BID 07/22/18 Acetaminophen [Mapap] 1,000 mg PO Q8H PRN PRN 10/31/19 Omeprazole 20 mg PO DAILY 10/31/19 Oxymetazoline HCl [Nasal Relief] 2 spray NS PRN PRN 10/31/19 Pramipexole Di-HCl [Mirapex] 0.5 mg PO QHS 10/31/19 Umeclidinium [place] Inhaler [Incruse Ellipta Inhaler] 1 puff IH DAILY 10/31/19 Benzonatate [Tessalon Perle] 100 mg PO Q8H PRN PRN #12 cap 11/09/19 Clozapine [Clozaril] 150 mg PO DINNER #0 11/15/19 Clozapine [Clozaril] 150 mg PO QHS #0 11/15/19 Ferrous Gluconate 325 mg PO DAILY 11/16/19 Furosemide [Lasix] 40 mg PO DAILY 11/16/19 Potassium Chloride [K-Dur] 20 meq PO DAILY 11/16/19 Risperidone [Risperdal] 1 mg PO DAILY 11/16/19 Bisacodyl [Dulcolax] 10 mg PO DAILY PRN PRN tab 11/23/19 Clonazepam [Klonopin] 0.5 mg PO TIDCM #45 tab 11/23/19 Guaifenesin [Robitussin] 10 ml PO Q6H PRN PRN udc 11/23/19 Insulin Glargine [Lantus SoloStar Pen] 35 units SUBCUT DAILY@1600 pen 11/23/19 Sodium Chloride 0.65% [[place] Nasal [place]] 1 spray NASAL TID PRN PRN spray.btl 11/23/19 Following Prescrptions Were Given to Patient: Clonazepam [Klonopin] 0.5 mg PO TIDCM #45 tab Prescription Printed Primary Care Physician: Boris Vance MD [Primary Care Provider] - Please follow up with your Primary Care Physician in: 1 week. Disposition: Asstd Living/Non-Skill PR Minutes spent on discharge:: 30 Patient Condition:: Stable Medical Necessity - Tobacco Use Smoking Status: Former smoker Tobacco Use: Cigarettes Meaningful Use Info Meaningful Use Diagnoses (Choose all that apply): None applicable
--- NOTE | 2019-11-23 19:40 | PCM.TXEXTCAR ---
- Diet 11/16/19 18:34 Diet: Fluid Restriction Food consistency:: Mechanical Soft/Ground Liquid Consistency:: Honey Thick Dietary Modifications:: Fluid Restricted Diet Is pt able to select menu?: Yes Diet Comments: Close supervision, 1800 FR unable to enter in computer - Routine Orders/Code Status Suppository Type: Dulcolax 10mg Suppository Frequency: Daily PRN Code Status: Full Code - Wound(s) L elbow Wound Type: Abrasion Dressing Change: bandaid - Therapies Weight Bearing: Weight bearing as tolerated Extremity Affected:: Bilateral Lower - Problem/Diagnosis (1) Debility Status: Acute Current Visit: Yes (2) Acute respiratory failure with hypoxia Status: Acute Current Visit: Yes (3) Influenza B Status: Acute Current Visit: Yes (4) Elevated troponin Status: Acute Current Visit: Yes (5) Fecal impaction Status: Chronic Current Visit: Yes (6) Edema Status: Chronic Current Visit: Yes (7) GERD (gastroesophageal reflux disease) Status: Chronic Current Visit: Yes (8) Restless leg syndrome Status: Chronic Current Visit: Yes (9) Anxiety Status: Chronic Current Visit: Yes (10) Diabetes mellitus Status: Chronic Current Visit: Yes (11) Depression Status: Chronic Current Visit: Yes (12) Hypokalemia Status: Chronic Current Visit: Yes (13) Vitamin D deficiency Status: Chronic Current Visit: Yes (14) Benzodiazepine dependence Status: Chronic Current Visit: Yes (15) COPD exacerbation Status: Acute Current Visit: No (16) COPD (chronic obstructive pulmonary disease) Status: Chronic Current Visit: No (17) Hyperlipidemia Status: Chronic Current Visit: No (18) HTN (hypertension) Status: Chronic Current Visit: No (19) Schizophrenia Status: Chronic Current Visit: No (20) Dysphagia Status: Acute Current Visit: Yes - Allergies/Procedures Done in Hospital Allergies/Adverse Reactions: Allergies No Known Allergies Allergy (Verified 11/06/19 15:26) - Type of Care/Length of Stay Estimated LOS: More Than 30 Days Type of Care Needed: Intermediate Rehab Potential: Fair Prognosis: Poor - Additional Orders/Day of Discharge Day of Discharge: 11/26/19 - Follow Up Care Primary Care Physician: Boris Vance MD [Primary Care Provider] - Please follow up with your Primary Care Physician in: 1 week.
[2019-11-23] MEDS: Pravastatin 20 MG Tablet PO (21:14)
[2019-11-23] MEDS: Pramipexole Di-HCl 0.5 MG Tablet PO (21:14)
[2019-11-23 21:36] LABS: Bedside Glucose 142 mg/dL (70-110)
--- NOTE | 2019-11-23 21:56 | NURSING ---
Patient remains in isolation due to influenza B, active coughing, all care provided in room.
[2019-11-24] MEDS: Umeclidinium Bromide Inhaler 1 PUFF IH (04:47)
[2019-11-24] MEDS: Glucerna Shake 120 ML LIQUID 60 ML PO (04:47)
[2019-11-24] MEDS: Venlafaxine XR 37.5 MG Capsule PO (04:48)
[2019-11-24] MEDS: Lubiprostone 24 MCG Capsule PO ×2 (04:48→16:44)
[2019-11-24] MEDS: Omega-3 Acid Ethyl Esters 1 GM Capsule PO (04:49)
[2019-11-24] MEDS: Polyethylene Glycol 3350 17 GM PACKET PO (04:49)
[2019-11-24] MEDS: Pantoprazole Sodium 20 MG Tablet PO (04:49)
[2019-11-24] MEDS: Furosemide 40 MG Tablet PO (04:49)
[2019-11-24] MEDS: RisperiDONE 1 MG Tablet PO (04:50)
[2019-11-24] MEDS: Senna/Docusate Sodium 1 Tablet PO ×2 (04:50→16:45)
[2019-11-24] MEDS: Fluticasone/Salmeterol 232-14 Inhaler 1 PUFF IH ×2 (04:53→17:54)
[2019-11-24] MEDS: Enoxaparin 40 MG/0.4 ML Syringe SC (04:53)
[2019-11-24 05:38] LABS: Absolute Lymphocyte Count 4.43 X10^3/uL (0.83-4.51); Absolute Neutrophil Count 6.5 X10^3/uL (2.0-7.7); Basophil# 0.02 X10^3/uL; Basophil% 0.2 % (0-1); Eosinophil# 0.05 X10^3/uL; Eosinophils% 0.4 % (0-5); Hematocrit 38.3 % (37-47); Hemoglobin 11.7 g/dL (12.0-15.0); Lymphocyte # 4.43 X10^3/ul (4.0); Lymphocyte % 38.2 % (19-41); Mean Corp Hgb Conc 30.5 g/dL (32-36); Mean Corpuscular Volume 94.8 fL (81-99); Mean Platelet Vol. 9.6 fl (6.2-12.0); Monocyte# 0.57 X10^3/uL; Monocyte% 4.9 % (0-10); NRBC Flagged by Analyzer 0 % (0-5); Neutrophil # 6.46 X10^3/uL (2.7-7.7); Neutrophil % 55.6 % (47-70); POSITIVE MORPHOLOGY YES; Platelet Count 198 K/mm3 (150-450); RBC Distribution Width CV 13.6 % (11.6-14.6); RBC Distribution Width SD 47.2 fl (35.1-43.9); Red Blood Count 4.04 M/mm3 (4.2-5.4); White Blood Count 11.6 K/mm3 (4.4-11.0)
[2019-11-24 05:42] LABS: Differential Indicated SCAN CRITERIA MET
[2019-11-24 05:57] LABS: BUN 15 mg/dL (7-18); BUN/Creat Ratio 25.7 RATIO (10-20); Calcium,Total 8.6 mg/dL (8.5-10.1); Chloride 104 mmol/L (98-107); Creatinine, Serum 0.58 mg/dL (0.55-1.02); EST Glomerular Filtration Rate 113 mL/min (>60); Est Glom Filt Rate - Afr Amer 137 mL/min (>60); Estimated Creatinine Clearance 81.73 ml/min; Glucose 75 mg/dL (74-106); Sodium Level 139 mmol/L (136-145)
[2019-11-24 05:58] LABS: Anion Gap 4 (5-15)
[2019-11-24 06:16] LABS: Bedside Glucose 118 mg/dL (70-110)
[2019-11-24 06:16] LABS: Bedside Glucose 72 mg/dL (70-110)
[2019-11-24 06:19] LABS: Platelet Estimate ADEQUATE (ADEQ); Reactive Lymphocyte 1+; Red Cell Morphology NORM C+C NORMAL (NORM C&C)
[2019-11-24] MEDS: predniSONE 10 MG Tablet PO (08:56)
[2019-11-24] MEDS: glipiZIDE 5 MG Tablet PO ×2 (08:56→16:43)
[2019-11-24] MEDS: Aspirin E.C. 325 MG Tablet PO (08:56)
[2019-11-24] MEDS: metFORMIN HCl 1,000 MG Tablet 1000 MG PO ×2 (08:56→16:43)
[2019-11-24] MEDS: clonazePAM 0.5 MG Tablet PO ×3 (08:57→17:53)
[2019-11-24] MEDS: Oxymetazoline 0.05% 1 SPRAY SPRAY.BTL 2 SPRAY NS (10:49)
[2019-11-24 11:00] LABS: Bedside Glucose 125 mg/dL (70-110)
[2019-11-24] MEDS: Ferrous Gluconate 324 MG Tablet PO (11:49)
[2019-11-24] MEDS: Tuberculin,Purif.prot.deriv. 50 TU/ML Vial 5 ML ID (12:45)
--- NOTE | 2019-11-24 12:51 | CASEMGMT ---
Social Work IDT met with patient, guardian and residential telephonic case manager for care plan meeting. Discussed patient's progress in therapy. Pt is supervised to mod. I for transfers and all ADLS, walking 240 ft with rest breaks and O2 stats decrease. Pt is on honey thick, mech soft diet. [facility] issued LCD 11/25. Guardian and C.M. requested referral to [facility], next choice [facility], then [facility]. Referred to [facility] - they are completing onsite on this date for pt prior to acceptance/denial. Will continue to follow. KAI UreñaW
[2019-11-24 14:31] VITALS: BP 113/67; PULSE 116; RESP 18; TEMP 35.7; O2SAT 96
[2019-11-24 16:51] LABS: Bedside Glucose 148 mg/dL (70-110)
--- NOTE | 2019-11-24 18:16 | NURSING ---
pt with no coughing all shift. isolation dc'd and teaching gin
[2019-11-24] MEDS: Pramipexole Di-HCl 0.5 MG Tablet PO (22:16)
[2019-11-24] MEDS: Pravastatin 20 MG Tablet PO (22:18)
[2019-11-24] MEDS: guaiFENesin 10 ML UDC (200MG/10ML) PO (22:20)
[2019-11-24 22:26] LABS: Bedside Glucose 118 mg/dL (70-110)
[2019-11-25] MEDS: Enoxaparin 40 MG/0.4 ML Syringe SC (05:00)
[2019-11-25] MEDS: Senna/Docusate Sodium 1 Tablet PO ×2 (05:00→17:27)
[2019-11-25] MEDS: Omega-3 Acid Ethyl Esters 1 GM Capsule PO (05:00)
[2019-11-25] MEDS: Venlafaxine XR 37.5 MG Capsule PO (05:00)
[2019-11-25] MEDS: RisperiDONE 1 MG Tablet PO (05:00)
[2019-11-25] MEDS: Fluticasone/Salmeterol 232-14 Inhaler 1 PUFF IH ×2 (05:00→17:24)
[2019-11-25] MEDS: Pantoprazole Sodium 20 MG Tablet PO (05:00)
[2019-11-25] MEDS: Polyethylene Glycol 3350 17 GM PACKET PO (05:00)
[2019-11-25] MEDS: Lubiprostone 24 MCG Capsule PO ×2 (05:00→17:27)
[2019-11-25] MEDS: Furosemide 40 MG Tablet PO (05:00)
[2019-11-25] MEDS: Benzonatate 100 MG Capsule PO (05:05)
[2019-11-25] MEDS: Umeclidinium Bromide Inhaler 1 PUFF IH (05:06)
[2019-11-25 05:12] VITALS: PULSE 93; RESP 16; O2SAT 97
[2019-11-25 06:15] LABS: Bedside Glucose 75 mg/dL (70-110)
[2019-11-25 07:43] VITALS: O2SAT 96
[2019-11-25] MEDS: Acetaminophen 500 MG Tablet 1000 MG PO (08:18)
[2019-11-25] MEDS: clonazePAM 0.5 MG Tablet PO ×3 (08:18→17:27)
[2019-11-25] MEDS: metFORMIN HCl 1,000 MG Tablet 1000 MG PO ×2 (08:20→17:27)
[2019-11-25] MEDS: glipiZIDE 5 MG Tablet PO ×2 (08:20→17:26)
[2019-11-25] MEDS: predniSONE 10 MG Tablet PO (08:21)
[2019-11-25] MEDS: Aspirin E.C. 325 MG Tablet PO (08:21)
--- NOTE | 2019-11-25 08:28 | CASEMGMT ---
Social work Pt is out of isolation precaution. Contacted [facility] and faxed over information. Contacted [facility]- sales training representative coming today to interview pt. Breanna Vitale, Social work director internal audit Ivonne Richard, GREEN END WORKER NAPHTHOL SOAPING MACHINE OPERATOR
--- NOTE | 2019-11-25 11:09 | MDS.RN ---
Addendum entered by Tiffanie Rizo 11/25/19 11:13: Resident remained in room isolation during lookback period d/t + influenza Original Note: Information for the mds was obtained from review of the clinical record, interview of resident, staff, and direct observation of resident's care.
[2019-11-25 11:15] LABS: Bedside Glucose 168 mg/dL (70-110)
[2019-11-25] MEDS: Ferrous Gluconate 324 MG Tablet PO (12:02)
[2019-11-25 14:18] VITALS: BP 117/65; PULSE 112; RESP 18; TEMP 36.1; O2SAT 96
--- NOTE | 2019-11-25 14:37 | CASEMGMT ---
Social Work [facility] cannot accept pt. [facility] can accept pt. Left message with [facility] to [facility] and if SW needs to schedule transportation. Will await return phone call. Ivonne Richard, KAI BAUTISTAW
[2019-11-25] MEDS: Sodium Chloride 0.65% 1 SPRAY SPRAY.BTL NASAL (15:41)
--- NOTE | 2019-11-25 16:00 | CASEMGMT ---
Social Work Have not heard from guardian - emailed information to guardian as well. Will await response. KAI UreñaW
[2019-11-25 16:45] LABS: Bedside Glucose 190 mg/dL (70-110)
[2019-11-25] MEDS: Pravastatin 20 MG Tablet PO (20:51)
[2019-11-25] MEDS: Pramipexole Di-HCl 0.5 MG Tablet PO (20:52)
[2019-11-25 21:16] LABS: Bedside Glucose 161 mg/dL (70-110)
[2019-11-25] MEDS: guaiFENesin 10 ML UDC (200MG/10ML) PO (22:16)
[2019-11-26] MEDS: Fluticasone/Salmeterol 232-14 Inhaler 1 PUFF IH (05:11)
[2019-11-26] MEDS: Furosemide 40 MG Tablet PO (05:12)
[2019-11-26] MEDS: RisperiDONE 1 MG Tablet PO (05:12)
[2019-11-26] MEDS: Venlafaxine XR 37.5 MG Capsule PO (05:12)
[2019-11-26] MEDS: Pantoprazole Sodium 20 MG Tablet PO (05:12)
[2019-11-26] MEDS: Omega-3 Acid Ethyl Esters 1 GM Capsule PO (05:12)
[2019-11-26] MEDS: Lubiprostone 24 MCG Capsule PO (05:12)
[2019-11-26] MEDS: Enoxaparin 40 MG/0.4 ML Syringe SC (05:13)
[2019-11-26] MEDS: Senna/Docusate Sodium 1 Tablet PO (05:13)
[2019-11-26] MEDS: Umeclidinium Bromide Inhaler 1 PUFF IH (05:18)
[2019-11-26] MEDS: Polyethylene Glycol 3350 17 GM PACKET PO (05:18)
--- NOTE | 2019-11-26 06:04 | NURSING ---
Addendum entered by Leni Dominguez 11/26/19 07:01: BS 93 Original Note: BS 61 this AM given orange juice and peanut butter with crackers. Will recheck in 15 minutes
[2019-11-26 06:20] LABS: Bedside Glucose 93 mg/dL (70-110)
[2019-11-26 06:20] LABS: Bedside Glucose 61 mg/dL (70-110)
[2019-11-26 07:47] VITALS: O2SAT 95
[2019-11-26] MEDS: Aspirin E.C. 325 MG Tablet PO (07:51)
[2019-11-26] MEDS: clonazePAM 0.5 MG Tablet PO ×2 (07:51→11:50)
[2019-11-26] MEDS: glipiZIDE 5 MG Tablet PO (07:51)
[2019-11-26] MEDS: metFORMIN HCl 1,000 MG Tablet 1000 MG PO (07:52)
[2019-11-26] MEDS: predniSONE 10 MG Tablet PO (07:52)
--- NOTE | 2019-11-26 10:39 | CASEMGMT ---
Addendum entered by Ivonne Richard 11/26/19 15:10: Since pt is new O2, pt qualifies for cot transport. Scheduled transport through [facility] at 4 pm. Message left with guardian. Notified [facility]. PASRR completed in [facility]. Plan: DC to [facility] 11/26 at 4 pm via cot. Addendum entered by Ivonne Richard 11/26/19 14:29: [facility] contacted to clarify patient's Medicaid is active, but it is only QMB and has not SNF coverage. Provided that information to the guardian and [facility] whom collaborated together to get bank statements to prove pt would be eligible for SNF Medicaid. [facility] can accept pt on this date. Spoke with Leola Ashley at [facility] for any transportation resources - they do not have any. Contacted [employer] and none have availability on this date. Also, pt requires O2 tank for transfer. Message left with Reg[facility] as they are the provider at [facility]. Will continue to follow. Original Note: Social Work Received return voicemail from guardiisaac stated pt can transfer to [facility] and to schedule transportation if insurance would cover the cost. [facility] and [facility] no longer active and cannot accept pt without payer or must pay privately. Contacted guardian and advised of above information and to contact [facility] directly to discuss the plans. Guardiisaac contacted and inquired about next steps. Provided [place] [employer] phone number to contact to possibly active benefits on this date and/or to determine why the Medicaid is inactive. Guardian [facility] with [facility]. Referral made and [facility] has bed availability to accept today. Will continue to follow. KAI UreñaW
[2019-11-26 10:45] VITALS: PULSE 109; RESP 18; O2SAT 96
[2019-11-26] MEDS: Oxymetazoline 0.05% 1 SPRAY SPRAY.BTL 2 SPRAY NS (10:47)
[2019-11-26 11:10] LABS: Bedside Glucose 133 mg/dL (70-110)
[2019-11-26] MEDS: Ferrous Gluconate 324 MG Tablet PO (11:50)
[2019-11-26 13:58] VITALS: BP 135/72; PULSE 117; RESP 18; TEMP 35.8
--- NOTE | 2019-11-26 15:51 | CASEMGMT ---
Social Work Reviewed and agreed with social work international manager documentation on this date. Ivonne Richard, ELECTRICAL INSTALLATION SUPERVISOR SECURITY SYSTEMS ENGINEER
--- NOTE | 2019-11-26 16:05 | NURSING ---
report called to bronson at [facility]
--- NOTE | 2019-11-29 16:06 | CASEMGMT ---
Social Work Reviewed and agreed with social work internal recruiter documentation on this date. Ivonne Richard, BATHHOUSE ATTENDANT EMPLOYMENT SECURITY OFFICER
== END 2019-11-26 16:00 | disposition skilled nursing facility (03) | DRG 190 ==
PROVIDERS: Admitting Provider Family Medicine Geriatric Medicine; PCP Family Medicine; Visit Provider Family Medicine Geriatric Medicine
DX: J44.1 Chronic obstructive pulmonary disease with (acute) exacerbation (principal); I21.A1 Myocardial infarction type 2; F13.20 Sedative, hypnotic or anxiolytic dependence, uncomplicated; J10.1 Influenza due to other identified influenza virus with other respiratory manifestations; E78.5 Hyperlipidemia, unspecified; E11.9 Type 2 diabetes mellitus without complications; F32.9 Major depressive disorder, single episode, unspecified; E55.9 Vitamin D deficiency, unspecified; D50.9 Iron deficiency anemia, unspecified; E87.6 Hypokalemia; K21.9 Gastro-esophageal reflux disease without esophagitis; G25.81 Restless legs syndrome; K56.41 Fecal impaction; F20.9 Schizophrenia, unspecified; I10 Essential (primary) hypertension; F41.9 Anxiety disorder, unspecified; Z87.891 Personal history of nicotine dependence
CPT/HCPCS: 36415; 80048; 82962; 85025; 92507; 92526; 92610; 97110; 97116; 97161; 97166; 97530; 97535; 97802

== ENCOUNTER 2020-01-11 08:49 | Outpatient (RCR) | payer MEDICARE, MEDICAID, SELFPAY ==
[2019-11-06 20:09] VITALS: BMI 37.3
[2019-11-16 11:53] VITALS: BMI 34.3
[2020-01-11 09:15] LABS: Absolute Lymphocyte Count 2.61 X10^3/uL (0.83-4.51); Absolute Neutrophil Count 5.2 X10^3/uL (2.0-7.7); Basophil# 0.04 X10^3/uL; Basophil% 0.5 % (0-1); Hematocrit 41.1 % (37-47); Hemoglobin 13.3 g/dL (12.0-15.0); Lymphocyte # 2.61 X10^3/ul (4.0); Lymphocyte % 31.2 % (19-41); Mean Corp Hgb Conc 32.4 g/dL (32-36); Mean Corpuscular Hgb 29.2 pg (27.0-32.0); Mean Corpuscular Volume 90.1 fL (81-99); Mean Platelet Vol. 10.1 fl (6.2-12.0); Monocyte# 0.48 X10^3/uL; Monocyte% 5.7 % (0-10); NRBC Flagged by Analyzer 0 % (0-5); Neutrophil # 5.21 X10^3/uL (2.7-7.7); Neutrophil % 62.4 % (47-70); POSITIVE MORPHOLOGY YES; Platelet Count 229 K/mm3 (150-450); RBC Distribution Width CV 14.4 % (11.6-14.6); RBC Distribution Width SD 47.1 fl (35.1-43.9); Red Blood Count 4.56 M/mm3 (4.2-5.4); White Blood Count 8.4 K/mm3 (4.4-11.0)
[2020-01-11 09:18] LABS: Differential Indicated SCAN CRITERIA MET
[2020-01-11 09:53] LABS: Reactive Lymphocyte 1+
== END 2020-01-11 18:00 | disposition home or self-care (01) ==
LOC: LAB 08:49
PROVIDERS: Family Provider Family Medicine; PCP Family Medicine; Referring Provider Psychiatry & Neurology Psychiatry; Visit Provider Psychiatry & Neurology Psychiatry
DX: Z79.899 Other long term (current) drug therapy (principal)
CPT/HCPCS: 36415; 85025

== ENCOUNTER → 2020-02-03 | Outpatient (CLI) | payer MEDICARE, MEDICAID, SELFPAY ==
[2019-11-16 11:53] VITALS: BMI 34.3
[2020-02-03 17:06] LABS: Bacteria 0 SEEN /hpf (None Seen); Mucous, Urine 0 SEEN /hpf (<or=2+); Red Blood Cells-Urine 0 SEEN /hpf (0-5); Squamous Epithelial Cells - UA 0 SEEN /hpf (5-10); White Blood Cells 0 SEEN /hpf (0-5)
[2020-02-03 17:34] LABS: Color, Urine Straw (Yellow); Glucose, Dipstick Normal (Normal); Ketone-Dipstick Negative (Negative); Leukocyte Esterase-Dipstick Negative /ul (Negative); Nitrite-Dipstick Negative (Negative); Occult Blood-Urine Negative /ul (Negative); Protein-Dipstick Negative (Negative); Specific Gravity, Urine 1.005 (1.002-1.030); Urine Bilirubin Dipstick Negative (Negative); Urine Clarity Clear (Clear); Urine Urobilinogen Normal (Normal); Urine pH 6.5 (5.0 - 8.0)
== END | disposition home or self-care (01) ==
LOC: LABSPEC 15:41
PROVIDERS: PCP Family Medicine; Referring Provider Family Medicine; Visit Provider Family Medicine
DX: R32 Unspecified urinary incontinence (principal)
CPT/HCPCS: 81001

== ENCOUNTER 2020-02-08 09:05 | Outpatient (RCR) | payer MEDICARE, MEDICAID, SELFPAY ==
[2019-11-16 11:53] VITALS: BMI 34.3
[2020-02-08 10:17] LABS: Absolute Lymphocyte Count 1.92 X10^3/uL (0.83-4.51); Absolute Neutrophil Count 6.1 X10^3/uL (2.0-7.7); Basophil# 0.03 X10^3/uL; Basophil% 0.3 % (0-1); Eosinophil# 0.01 X10^3/uL; Eosinophils% 0.1 % (0-5); Hematocrit 39.2 % (37-47); Hemoglobin 12.5 g/dL (12.0-15.0); Lymphocyte # 1.92 X10^3/ul (4.0); Lymphocyte % 21.7 % (19-41); Mean Corp Hgb Conc 31.9 g/dL (32-36); Mean Platelet Vol. 11.9 fl (6.2-12.0); Monocyte# 0.75 X10^3/uL; Monocyte% 8.5 % (0-10); NRBC Flagged by Analyzer 0 % (0-5); Neutrophil % 69.1 % (47-70); POSITIVE MORPHOLOGY YES; Platelet Count 171 K/mm3 (150-450); RBC Distribution Width CV 13.4 % (11.6-14.6); RBC Distribution Width SD 45.2 fl (35.1-43.9); Red Blood Count 4.31 M/mm3 (4.2-5.4); White Blood Count 8.8 K/mm3 (4.4-11.0)
[2020-02-08 10:18] LABS: Differential Indicated SCAN CRITERIA MET
[2020-02-08 10:37] LABS: Atypical Lymphocyte RARE %; Differential Comment SCANNED
[2020-02-08 10:38] LABS: Red Cell Morphology NORM C+C NORMAL (NORM C&C)
== END 2020-02-10 18:00 | disposition home or self-care (01) ==
LOC: LAB 09:05
PROVIDERS: Family Provider Family Medicine; PCP Family Medicine; Referring Provider Psychiatry & Neurology Psychiatry; Visit Provider Psychiatry & Neurology Psychiatry
DX: Z79.899 Other long term (current) drug therapy (principal)
CPT/HCPCS: 36415; 85025

== ENCOUNTER → 2020-02-21 15:42 | Outpatient (CLI) | payer MEDICARE, MEDICAID, SELFPAY ==
[2019-11-16 11:53] VITALS: BMI 34.3
--- NOTE | 2020-02-21 15:44 | CT_ITS ---
STUDY: CT CHEST WITHOUT CONTRAST- LOW DOSE SCREENING PROTOCOL REASON FOR EXAM: Female, 54 years old. Former smoker. Quit smoking less than 5 years ago. pack per year history. No current symptoms of lung cancer or pulmonary infection. Shared decision-making with referring PCP documented in patient''s record. RADIATION DOSAGE (If Supplied By Facility): CTDIvol = ( 3.02 ) mGy, DLP = ( 83.47 ) mGycm TECHNIQUE: Low dose screening CT examination performed from the base of the neck to the upper abdomen. Sagittal and coronal reformatted images performed. Sagittal and coronal MIP images provided. The measurements provided are average, rounded measurements per ACR guidelines. COMPARISON: 02/18/2019 FINDINGS: The lungs are normal. There is no demonstrated pleural abnormality. Normal heart and pericardium. Normal mediastinum. Normal hilar regions. Normal unenhanced pulmonary arteries. Normal aorta arch and descending thoracic aorta. There are multi-level degenerative changes of the thoracic spine. There is no demonstrated abnormality of the visualized upper abdomen. CT/Low Dose CT Lung Screening IMPRESSION: 1. No significant indeterminate incidental findings requiring additional imaging. 2. Incidental findings include mild degenerative disc disease of the thoracic spine.. ASSESSMENT CATEGORY: LungRADS 1 - Negative. Continue annual screening with LDCT in 12 months, per established ACR guidelines. Electronically Signed: Brandon Morgan MD at 16:07 EDT Tel , Service support ,
== END ==
PROVIDERS: PCP Family Medicine; Visit Provider Internal Medicine Pulmonary Disease
DX: Z87.891 Personal history of nicotine dependence (principal)
CPT/HCPCS: G0297

== ENCOUNTER 2020-03-07 08:57 | Outpatient (RCR) | payer MEDICARE, MEDICAID, SELFPAY ==
[2019-11-16 11:53] VITALS: BMI 34.3
[2020-03-07 09:16] LABS: Absolute Lymphocyte Count 2.63 X10^3/uL (0.83-4.51); Absolute Neutrophil Count 5.2 X10^3/uL (2.0-7.7); Basophil# 0.02 X10^3/uL; Basophil% 0.2 % (0-1); Eosinophil# 0.01 X10^3/uL; Eosinophils% 0.1 % (0-5); Hematocrit 41.5 % (37-47); Hemoglobin 13.5 g/dL (12.0-15.0); Lymphocyte # 2.63 X10^3/ul (4.0); Lymphocyte % 30.8 % (19-41); Mean Corp Hgb Conc 32.5 g/dL (32-36); Mean Corpuscular Hgb 29.2 pg (27.0-32.0); Mean Corpuscular Volume 89.6 fL (81-99); Mean Platelet Vol. 9.5 fl (6.2-12.0); Monocyte# 0.64 X10^3/uL; Monocyte% 7.5 % (0-10); NRBC Flagged by Analyzer 0 % (0-5); Neutrophil # 5.22 X10^3/uL (2.7-7.7); POSITIVE MORPHOLOGY YES; Platelet Count 212 K/mm3 (150-450); RBC Distribution Width CV 12.8 % (11.6-14.6); RBC Distribution Width SD 41.3 fl (35.1-43.9); Red Blood Count 4.63 M/mm3 (4.2-5.4); White Blood Count 8.6 K/mm3 (4.4-11.0)
[2020-03-07 09:17] LABS: Differential Indicated SCAN CRITERIA MET
[2020-03-07 10:14] LABS: Differential Comment SCANNED; Reactive Lymphocyte 1+
== END 2020-03-07 18:00 | disposition home or self-care (01) ==
LOC: LAB 08:57
PROVIDERS: Family Provider Family Medicine; PCP Family Medicine; Referring Provider Psychiatry & Neurology Psychiatry; Visit Provider Psychiatry & Neurology Psychiatry
DX: Z79.899 Other long term (current) drug therapy (principal)
CPT/HCPCS: 36415; 85025

== ENCOUNTER 2020-04-05 09:26 | Outpatient (RCR) | payer MEDICARE, MEDICAID, SELFPAY ==
[2019-11-16 11:53] VITALS: BMI 34.3
[2020-04-05 11:03] LABS: Absolute Lymphocyte Count 2.45 X10^3/uL (0.83-4.51); Absolute Neutrophil Count 5.5 X10^3/uL (2.0-7.7); Basophil# 0.03 X10^3/uL; Basophil% 0.3 % (0-1); Eosinophil# 0.01 X10^3/uL; Eosinophils% 0.1 % (0-5); Hematocrit 41.4 % (37-47); Hemoglobin 13.1 g/dL (12.0-15.0); Lymphocyte # 2.45 X10^3/ul (4.0); Mean Corp Hgb Conc 31.6 g/dL (32-36); Mean Corpuscular Hgb 28.7 pg (27.0-32.0); Mean Corpuscular Volume 90.8 fL (81-99); Mean Platelet Vol. 11.7 fl (6.2-12.0); NRBC Flagged by Analyzer 0 % (0-5); POSITIVE MORPHOLOGY YES; Platelet Count 187 K/mm3 (150-450); RBC Distribution Width CV 12.6 % (11.6-14.6); RBC Distribution Width SD 41.5 fl (35.1-43.9); Red Blood Count 4.56 M/mm3 (4.2-5.4); White Blood Count 8.7 K/mm3 (4.4-11.0)
[2020-04-05 11:04] LABS: Differential Indicated SCAN CRITERIA MET
[2020-04-05 11:34] LABS: Reactive Lymphocyte RARE
== END 2020-04-05 18:00 | disposition home or self-care (01) ==
LOC: LAB 09:26
PROVIDERS: Family Provider Family Medicine; PCP Family Medicine; Referring Provider Psychiatry & Neurology Psychiatry; Visit Provider Psychiatry & Neurology Psychiatry
DX: Z79.899 Other long term (current) drug therapy (principal)
CPT/HCPCS: 36415; 85025

== ENCOUNTER 2020-05-02 08:54 | Outpatient (RCR) | payer MEDICARE, MEDICAID, SELFPAY ==
[2019-11-16 11:53] VITALS: BMI 34.3
[2020-05-02 09:21] LABS: Absolute Lymphocyte Count 2.16 X10^3/uL (0.83-4.51); Absolute Neutrophil Count 6.2 X10^3/uL (2.0-7.7); Basophil# 0.03 X10^3/uL; Basophil% 0.3 % (0-1); Eosinophil# 0.12 X10^3/uL; Eosinophils% 1.3 % (0-5); Hematocrit 41.2 % (37-47); Hemoglobin 13.6 g/dL (12.0-15.0); Lymphocyte # 2.16 X10^3/ul (4.0); Lymphocyte % 23.6 % (19-41); Mean Corpuscular Hgb 29.1 pg (27.0-32.0); Mean Corpuscular Volume 88.2 fL (81-99); Mean Platelet Vol. 9.4 fl (6.2-12.0); Monocyte# 0.55 X10^3/uL; NRBC Flagged by Analyzer 0 % (0-5); Neutrophil # 6.24 X10^3/uL (2.7-7.7); Neutrophil % 68.4 % (47-70); POSITIVE MORPHOLOGY YES; Platelet Count 208 K/mm3 (150-450); RBC Distribution Width CV 13.5 % (11.6-14.6); RBC Distribution Width SD 42.8 fl (35.1-43.9); Red Blood Count 4.67 M/mm3 (4.2-5.4); White Blood Count 9.1 K/mm3 (4.4-11.0)
[2020-05-02 09:46] LABS: Differential Indicated SCAN CRITERIA MET
[2020-05-02 09:47] LABS: Differential Comment SCANNED; Reactive Lymphocyte 1+
== END 2020-05-02 18:00 | disposition home or self-care (01) ==
LOC: LAB 08:54
PROVIDERS: Family Provider Family Medicine; PCP Family Medicine; Referring Provider Psychiatry & Neurology Psychiatry; Visit Provider Psychiatry & Neurology Psychiatry
DX: Z79.899 Other long term (current) drug therapy (principal)
CPT/HCPCS: 36415; 85025

== ENCOUNTER 2020-05-30 08:29 | Outpatient (RCR) | payer MEDICARE, MEDICAID, SELFPAY ==
[2019-11-16 11:53] VITALS: BMI 34.3
[2020-05-30 08:58] LABS: Absolute Lymphocyte Count 2.14 X10^3/uL (0.83-4.51); Basophil# 0.03 X10^3/uL; Basophil% 0.3 % (0-1); Eosinophil# 0.01 X10^3/uL; Eosinophils% 0.1 % (0-5); Hematocrit 38.8 % (37-47); Hemoglobin 12.3 g/dL (12.0-15.0); Lymphocyte # 2.14 X10^3/ul (4.0); Lymphocyte % 24.9 % (19-41); Mean Corp Hgb Conc 31.7 g/dL (32-36); Mean Corpuscular Hgb 28.6 pg (27.0-32.0); Mean Corpuscular Volume 90.2 fL (81-99); Mean Platelet Vol. 9.8 fl (6.2-12.0); Monocyte# 0.45 X10^3/uL; Monocyte% 5.2 % (0-10); NRBC Flagged by Analyzer 0 % (0-5); Neutrophil # 5.95 X10^3/uL (2.7-7.7); Neutrophil % 69.2 % (47-70); POSITIVE MORPHOLOGY YES; Platelet Count 230 K/mm3 (150-450); RBC Distribution Width SD 45.6 fl (35.1-43.9); White Blood Count 8.6 K/mm3 (4.4-11.0)
[2020-05-30 09:28] LABS: Differential Indicated SCAN CRITERIA MET
== END 2020-06-12 18:00 | disposition home or self-care (01) ==
LOC: LAB 08:29
PROVIDERS: Family Provider Family Medicine; PCP Family Medicine; Referring Provider Psychiatry & Neurology Psychiatry; Visit Provider Psychiatry & Neurology Psychiatry
DX: Z79.899 Other long term (current) drug therapy (principal); M54.5 Low back pain; F20.0 Paranoid schizophrenia
CPT/HCPCS: 36415; 85025

== ENCOUNTER 2020-06-26 09:04 | Outpatient (RCR) | payer MEDICARE, MEDICAID, SELFPAY ==
[2019-11-16 11:53] VITALS: BMI 34.3
[2020-06-26 10:26] LABS: Absolute Lymphocyte Count 2.29 X10^3/uL (0.83-4.51); Absolute Neutrophil Count 5.9 X10^3/uL (2.0-7.7); Basophil# 0.04 X10^3/uL; Basophil% 0.4 % (0-1); Eosinophil# 0.01 X10^3/uL; Eosinophils% 0.1 % (0-5); Hematocrit 40.8 % (37-47); Hemoglobin 12.9 g/dL (12.0-15.0); Lymphocyte # 2.29 X10^3/ul (4.0); Lymphocyte % 25.6 % (19-41); Mean Corp Hgb Conc 31.6 g/dL (32-36); Mean Corpuscular Hgb 28.7 pg (27.0-32.0); Mean Corpuscular Volume 90.7 fL (81-99); Mean Platelet Vol. 11.3 fl (6.2-12.0); Monocyte# 0.66 X10^3/uL; Monocyte% 7.4 % (0-10); NRBC Flagged by Analyzer 0 % (0-5); Neutrophil % 66.2 % (47-70); Platelet Count 206 K/mm3 (150-450); RBC Distribution Width CV 13.9 % (11.6-14.6); RBC Distribution Width SD 45.9 fl (35.1-43.9); White Blood Count 8.9 K/mm3 (4.4-11.0)
== END 2020-06-26 18:00 | disposition home or self-care (01) ==
LOC: LAB 09:04
PROVIDERS: Family Provider Family Medicine; PCP Family Medicine; Referring Provider Psychiatry & Neurology Psychiatry; Visit Provider Psychiatry & Neurology Psychiatry
DX: Z79.899 Other long term (current) drug therapy (principal)
CPT/HCPCS: 36415; 85025

== ENCOUNTER 2020-07-25 08:52 | Outpatient (RCR) | payer MEDICARE, MEDICAID, SELFPAY ==
[2019-11-16 11:53] VITALS: BMI 34.3
[2020-07-25 09:23] LABS: Basophil# 0.05 X10^3/uL; Basophil% 0.6 % (0-1); Eosinophil# 0.02 X10^3/uL; Eosinophils% 0.2 % (0-5); Hematocrit 40.7 % (37-47); Hemoglobin 12.8 g/dL (12.0-15.0); Lymphocyte % 23.6 % (19-41); Mean Corp Hgb Conc 31.4 g/dL (32-36); Mean Corpuscular Hgb 28.2 pg (27.0-32.0); Mean Corpuscular Volume 89.6 fL (81-99); Mean Platelet Vol. 9.7 fl (6.2-12.0); Monocyte# 0.41 X10^3/uL; Monocyte% 4.8 % (0-10); NRBC Flagged by Analyzer 0 % (0-5); Neutrophil # 5.97 X10^3/uL (2.7-7.7); Neutrophil % 70.4 % (47-70); POSITIVE MORPHOLOGY YES; Platelet Count 222 K/mm3 (150-450); RBC Distribution Width CV 13.4 % (11.6-14.6); RBC Distribution Width SD 44.1 fl (35.1-43.9); Red Blood Count 4.54 M/mm3 (4.2-5.4); White Blood Count 8.5 K/mm3 (4.4-11.0)
[2020-07-25 09:24] LABS: Differential Indicated SCAN CRITERIA MET
[2020-07-25 10:01] LABS: Differential Comment SCANNED
== END 2020-07-25 18:00 | disposition home or self-care (01) ==
LOC: LAB 08:52
PROVIDERS: Family Provider Family Medicine; PCP Family Medicine; Referring Provider Psychiatry & Neurology Psychiatry; Visit Provider Psychiatry & Neurology Psychiatry
DX: Z79.899 Other long term (current) drug therapy (principal)
CPT/HCPCS: 36415; 85025

== ENCOUNTER 2020-08-22 08:35 | Outpatient (RCR) | payer MEDICARE, MEDICAID, SELFPAY ==
[2019-11-16 11:53] VITALS: BMI 34.3
[2020-08-22 09:06] LABS: Absolute Lymphocyte Count 2.03 X10^3/uL (0.83-4.51); Absolute Neutrophil Count 6.4 X10^3/uL (2.0-7.7); Basophil# 0.03 X10^3/uL; Basophil% 0.3 % (0-1); Eosinophil# 0.01 X10^3/uL; Eosinophils% 0.1 % (0-5); Hematocrit 40.6 % (37-47); Hemoglobin 12.9 g/dL (12.0-15.0); Lymphocyte # 2.03 X10^3/ul (4.0); Lymphocyte % 22.7 % (19-41); Mean Corp Hgb Conc 31.8 g/dL (32-36); Mean Corpuscular Hgb 28.9 pg (27.0-32.0); Mean Platelet Vol. 9.8 fl (6.2-12.0); Monocyte# 0.49 X10^3/uL; Monocyte% 5.5 % (0-10); NRBC Flagged by Analyzer 0 % (0-5); Neutrophil # 6.36 X10^3/uL (2.7-7.7); Neutrophil % 71.1 % (47-70); Platelet Count 201 K/mm3 (150-450); RBC Distribution Width CV 13.2 % (11.6-14.6); RBC Distribution Width SD 44.6 fl (35.1-43.9); Red Blood Count 4.46 M/mm3 (4.2-5.4)
== END 2020-08-22 18:00 | disposition home or self-care (01) ==
LOC: LAB 08:35
PROVIDERS: Family Provider Family Medicine; PCP Family Medicine; Referring Provider Psychiatry & Neurology Psychiatry; Visit Provider Psychiatry & Neurology Psychiatry
DX: Z79.899 Other long term (current) drug therapy (principal)
CPT/HCPCS: 36415; 85025

== ENCOUNTER 2020-09-10 19:03 | Emergency (ER) | payer MEDICARE, MEDICAID, SELFPAY ==
[2019-11-16 11:53] VITALS: BMI 34.3
[2020-09-10 19:04] VITALS: BP 135/68; PULSE 110; RESP 24; TEMP 37.7; O2SAT 94; BMI 36.6
--- NOTE | 2020-09-10 19:23 | EKG12_ITS ---
Test Reason : SOB Blood Pressure : / mmHG Vent. Rate : 100 BPM Atrial Rate : 100 BPM P-R Int : 162 ms QRS Dur : 084 ms QT Int : 326 ms P-R-T Axes : 051 003 058 degrees QTc Int : 420 ms Normal sinus rhythm Low voltage QRS Borderline ECG Confirmed by BOBBI SANDERS, JACOB ([id number]), deputy editor in chief CRISTAL OTT ([id number]) on 09/12/2020 9:19:58 AM Referred By: NATHALIA Confirmed By:JACOB MARTINES MD
--- NOTE | 2020-09-10 19:23 | RAD_ITS ---
HISTORY: PT STATED SHE DIDN'T FEEL WELL. PT STATES IT HAS BEEN GOING ON FOR 2 WEEKS. DIARRHEA AND CHILLS. ADDITIONAL HISTORY: None provided. EXAMINATION/TECHNIQUE: XR Chest 1 View AP/PA Number of images including paperwork: 1 COMPARISON: 11/11/2019 FINDINGS: LUNGS AND PLEURA: Low lung volumes. No consolidation, mass or pleural effusion. CARDIAC SILHOUETTE: Unremarkable. MEDIASTINUM AND CODY: Unremarkable. UPPER ABDOMEN: Unremarkable. SKELETON AND SOFT TISSUES: No acute skeletal findings. OTHER DEVICES AND HARDWARE: None. RAD/Chest 1 View (Portable) IMPRESSION: Low lung volumes without definite acute abnormality. at 2058 Reported and signed by: Eunice Resendiz MD Electronically Signed: Eunice Resendiz MD at 20:58 EST Tel , Service support ,
[2020-09-10 19:51] LABS: Absolute Lymphocyte Count 1.21 X10^3/uL (0.83-4.51); Absolute Neutrophil Count 6.6 X10^3/uL (2.0-7.7); Basophil# 0.04 X10^3/uL; Basophil% 0.5 % (0-1); Eosinophil# 0.01 X10^3/uL; Eosinophils% 0.1 % (0-5); Hematocrit 38.9 % (37-47); Hemoglobin 12.6 g/dL (12.0-15.0); Lymphocyte # 1.21 X10^3/ul (4.0); Lymphocyte % 14.1 % (19-41); Mean Corp Hgb Conc 32.4 g/dL (32-36); Mean Corpuscular Hgb 29.3 pg (27.0-32.0); Mean Corpuscular Volume 90.5 fL (81-99); Mean Platelet Vol. 9.7 fl (6.2-12.0); Monocyte# 0.65 X10^3/uL; Monocyte% 7.6 % (0-10); NRBC Flagged by Analyzer 0 % (0-5); Neutrophil # 6.63 X10^3/uL (2.7-7.7); Neutrophil % 77.3 % (47-70); Platelet Count 210 K/mm3 (150-450); RBC Distribution Width CV 13.5 % (11.6-14.6); RBC Distribution Width SD 44.4 fl (35.1-43.9); White Blood Count 8.6 K/mm3 (4.4-11.0)
[2020-09-10 20:04] LABS: Anion Gap 8 (5-15); BUN 15 mg/dL (7-18); BUN/Creat Ratio 19.7 RATIO (10-20); Calcium,Total 9.5 mg/dL (8.5-10.1); Chloride 101 mmol/L (98-107); Creatinine, Serum 0.76 mg/dL (0.55-1.02); EST Glomerular Filtration Rate 83 mL/min (>60); Est Glom Filt Rate - Afr Amer 101 mL/min (>60); Estimated Creatinine Clearance 62.37 ml/min; Glucose 143 mg/dL (74-106); Potassium 3.9 mmol/L (3.5-5.1); Sodium Level 135 mmol/L (136-145)
[2020-09-10 20:23] LABS: Bacteria 0 SEEN /hpf (None Seen); Mucous, Urine 0 SEEN /hpf (<or=2+); Red Blood Cells-Urine 0 SEEN /hpf (0-5); White Blood Cells 0 SEEN /hpf (0-5)
[2020-09-10 20:30] LABS: Color, Urine Yellow (Yellow); Glucose, Dipstick 1000 mg/dl (Normal); Ketone-Dipstick Negative (Negative); Leukocyte Esterase-Dipstick Negative /ul (Negative); Nitrite-Dipstick Negative (Negative); Occult Blood-Urine Negative /ul (Negative); Protein-Dipstick Negative (Negative); Specific Gravity, Urine 1.005 (1.002-1.030); Urine Bilirubin Dipstick Negative (Negative); Urine Clarity Clear (Clear); Urine Urobilinogen Normal (Normal)
[2020-09-10 20:38] LABS: Renal Epithelial Cells 0-5 SEEN /hpf (0-5); Squamous Epithelial Cells - UA 0-5 SEEN /hpf (5-10)
--- NOTE | 2020-09-10 21:02 | ED.VISSUMM ---
- ER Visit Summary Date of Service: 09/10/20 Chief Complaint: Shortness of breath History of Present Illness: The patient is a [address] Ramirez and Dr. Vance. She reports that she was taken off oxygen a couple of days ago by Dr. Ramirez because it was felt that she didn't need this any longer. She reports that she has been on this for a long time. She states that she has been short of breath since then. She complains of subjective fever and chills. She denies any cough. No chest pain. She reports she is having diarrhea twice a day for the past week. She has somewhat of a headache. Patient has a history of schizophrenia and lives in a alf. She reports that she has had sick contacts there. No known exposure to Covid. Physical Examination: Vitals: Stable. Afebrile. General: Well-nourished and well-developed. Head: Normocephalic atraumatic. Neck: Supple, no lymphadenopathy. No JVD. Nontender. Cardiovascular: Regular rate and rhythm. No murmurs. Respiratory: No respiratory distress. Clear to auscultation bilaterally. Abdominal: Soft, nontender, nondistended, normal bowel sounds. No guarding, rebound, or peritoneal signs. Back: Nontender. Extremities: Nontender, no edema. Skin: Normal color, no rash. Neurologic: Alert and oriented ?3. Cranial nerves II through XII are intact. Normal strength and sensation. Psych: Normal affect. Test Results: EKG is sinus at [address] changes. CBC shows 7 neutrophils 77 lymphocytes 14. Chem-7 shows a sodium 135, glucose of 143. UA is negative. Troponin is negative. COVID-19 rapid antigen is negative. Clinical Impression(s) from Imaging Studies Chest X-Ray 09/10/20 19:23 IMPRESSION: Low lung volumes without definite acute abnormality. at 2058 Reported and signed by: Eunice Resendiz MD Electronically Signed: Eunice Resendiz MD at 20:58 EST Tel , Service support , Emergency Department Course and Treatment: Patient is resting comfortably and is not hypoxic. Treatment Plan: She will be discharged with symptomatic care. Instructed to follow-up with Dr. Ramirez for further evaluation and treatment. Return to the emergency department for any worsening symptoms. Disposition: To home in improved and stable condition. Impression: 1. Dyspnea, uncertain cause. This note was generated with [employer] dictation software. It may contain incorrect words, spelling, and punctuation that were not noted in review of the chart prior to signing ED Disposition - Plan for ED Patient: Instructions: ED Dyspnea Referrals: Koby Ramirez MD [STAFF PHYSICIAN] - Boris Vance MD [Primary Care Provider] - 1-2 Days if not improving
[2020-09-10 21:15] VITALS: BP 112/79; PULSE 92; RESP 24; O2SAT 95
== END 2020-09-10 22:54 | disposition home or self-care (01) ==
PROVIDERS: Emergency Provider Emergency Medicine; PCP Family Medicine
DX: R06.00 Dyspnea, unspecified (principal); J44.9 Chronic obstructive pulmonary disease, unspecified; E11.9 Type 2 diabetes mellitus without complications; F20.9 Schizophrenia, unspecified; Z79.4 Long term (current) use of insulin; Z79.82 Long term (current) use of aspirin; Z79.899 Other long term (current) drug therapy
CPT/HCPCS: 71045; 80048; 81001; 84484; 85025; 87426; 93005; 99285; A4216

== ENCOUNTER 2020-10-10 08:59 | Outpatient (RCR) | payer MEDICARE, MEDICAID, SELFPAY ==
[2020-10-10 09:21] LABS: Absolute Lymphocyte Count 2.34 X10^3/uL (0.83-4.51); Absolute Neutrophil Count 5.3 X10^3/uL (2.0-7.7); Basophil# 0.04 X10^3/uL; Basophil% 0.5 % (0-1); Eosinophil# 0.02 X10^3/uL; Eosinophils% 0.2 % (0-5); Hematocrit 42.7 % (37-47); Hemoglobin 13.4 g/dL (12.0-15.0); Lymphocyte # 2.34 X10^3/ul (4.0); Mean Corp Hgb Conc 31.4 g/dL (32-36); Mean Corpuscular Hgb 28.3 pg (27.0-32.0); Mean Corpuscular Volume 90.1 fL (81-99); Mean Platelet Vol. 9.9 fl (6.2-12.0); Monocyte# 0.63 X10^3/uL; Monocyte% 7.5 % (0-10); NRBC Flagged by Analyzer 0 % (0-5); Neutrophil % 63.3 % (47-70); Platelet Count 211 K/mm3 (150-450); RBC Distribution Width CV 14.1 % (11.6-14.6); RBC Distribution Width SD 45.8 fl (35.1-43.9); Red Blood Count 4.74 M/mm3 (4.2-5.4); White Blood Count 8.4 K/mm3 (4.4-11.0)
== END 2020-10-10 18:00 | disposition home or self-care (01) ==
LOC: LAB 08:59
PROVIDERS: Family Provider Family Medicine; PCP Family Medicine; Referring Provider Psychiatry & Neurology Psychiatry; Visit Provider Psychiatry & Neurology Psychiatry
DX: Z79.899 Other long term (current) drug therapy (principal)
CPT/HCPCS: 36415; 85025

== ENCOUNTER 2020-11-15 07:53 | Outpatient (RCR) | payer MEDICARE, MEDICAID, SELFPAY ==
[2020-11-15 08:18] LABS: Absolute Lymphocyte Count 2.15 X10^3/uL (0.83-4.51); Basophil# 0.03 X10^3/uL; Basophil% 0.3 % (0-1); Eosinophil# 0.02 X10^3/uL; Eosinophils% 0.2 % (0-5); Hematocrit 42.9 % (37-47); Hemoglobin 13.9 g/dL (12.0-15.0); Lymphocyte # 2.15 X10^3/ul (4.0); Lymphocyte % 24.8 % (19-41); Mean Corp Hgb Conc 32.4 g/dL (32-36); Mean Corpuscular Hgb 29.3 pg (27.0-32.0); Mean Corpuscular Volume 90.3 fL (81-99); Mean Platelet Vol. 9.7 fl (6.2-12.0); Monocyte# 0.48 X10^3/uL; Monocyte% 5.5 % (0-10); NRBC Flagged by Analyzer 0 % (0-5); Neutrophil # 5.96 X10^3/uL (2.7-7.7); Neutrophil % 68.9 % (47-70); Platelet Count 239 K/mm3 (150-450); RBC Distribution Width SD 46.5 fl (35.1-43.9); Red Blood Count 4.75 M/mm3 (4.2-5.4); White Blood Count 8.7 K/mm3 (4.4-11.0)
== END 2020-11-15 18:00 | disposition home or self-care (01) ==
LOC: LAB 07:53
PROVIDERS: Family Provider Family Medicine; PCP Family Medicine; Referring Provider Psychiatry & Neurology Psychiatry; Visit Provider Psychiatry & Neurology Psychiatry
DX: Z79.899 Other long term (current) drug therapy (principal)
CPT/HCPCS: 36415; 85025

== ENCOUNTER 2020-12-14 07:43 | Outpatient (RCR) | payer MEDICARE, MEDICAID, SELFPAY ==
[2020-12-14 08:26] LABS: Absolute Lymphocyte Count 2.31 X10^3/uL (0.83-4.51); Absolute Neutrophil Count 5.3 X10^3/uL (2.0-7.7); Basophil# 0.04 X10^3/uL; Basophil% 0.5 % (0-1); Eosinophil# 0.03 X10^3/uL; Eosinophils% 0.4 % (0-5); Hematocrit 44.9 % (37-47); Hemoglobin 13.9 g/dL (12.0-15.0); Lymphocyte # 2.31 X10^3/ul (4.0); Lymphocyte % 28.1 % (19-41); Mean Corpuscular Hgb 28.4 pg (27.0-32.0); Mean Corpuscular Volume 91.6 fL (81-99); Mean Platelet Vol. 10.5 fl (6.2-12.0); Monocyte# 0.51 X10^3/uL; Monocyte% 6.2 % (0-10); NRBC Flagged by Analyzer 0 % (0-5); Neutrophil # 5.28 X10^3/uL (2.7-7.7); Neutrophil % 64.3 % (47-70); Platelet Count 218 K/mm3 (150-450); RBC Distribution Width CV 14.3 % (11.6-14.6); RBC Distribution Width SD 47.6 fl (35.1-43.9); White Blood Count 8.2 K/mm3 (4.4-11.0)
== END 2020-12-14 18:00 | disposition home or self-care (01) ==
LOC: LAB 07:43
PROVIDERS: Family Provider Family Medicine; PCP Family Medicine; Referring Provider Psychiatry & Neurology Psychiatry; Visit Provider Psychiatry & Neurology Psychiatry
DX: Z79.899 Other long term (current) drug therapy (principal)
CPT/HCPCS: 36415; 85025

== ENCOUNTER 2021-02-06 10:44 | Outpatient (RCR) | payer MEDICARE, MEDICAID, SELFPAY ==
[2021-02-06 12:32] LABS: Absolute Lymphocyte Count 2.58 X10^3/uL (0.83-4.51); Basophil# 0.06 X10^3/uL; Basophil% 0.6 % (0-1); Eosinophil# 0.02 X10^3/uL; Eosinophils% 0.2 % (0-5); Hematocrit 43.9 % (37-47); Hemoglobin 13.9 g/dL (12.0-15.0); Lymphocyte # 2.58 X10^3/ul (0.83-4.51); Lymphocyte % 24.8 % (19-41); Mean Corp Hgb Conc 31.7 g/dL (32-36); Mean Corpuscular Hgb 28.7 pg (27.0-32.0); Mean Corpuscular Volume 90.5 fL (81-99); Monocyte# 0.72 X10^3/uL; Monocyte% 6.9 % (0-10); NRBC Flagged by Analyzer 0 % (0-5); Neutrophil # 6.98 X10^3/uL (2.7-7.7); Platelet Count 175 K/mm3 (150-450); RBC Distribution Width CV 13.6 % (11.6-14.6); RBC Distribution Width SD 45.5 fl (35.1-43.9); Red Blood Count 4.85 M/mm3 (4.2-5.4); White Blood Count 10.4 K/mm3 (4.4-11.0)
== END 2021-02-06 18:00 | disposition home or self-care (01) ==
LOC: LAB 10:44
PROVIDERS: Family Provider Family Medicine; PCP Family Medicine; Referring Provider Psychiatry & Neurology Psychiatry; Visit Provider Psychiatry & Neurology Psychiatry
DX: Z79.899 Other long term (current) drug therapy (principal)
CPT/HCPCS: 36415; 85025

== ENCOUNTER 2021-03-14 11:37 | Outpatient (RCR) | payer MEDICARE, MEDICAID, SELFPAY ==
[2021-03-14 12:32] LABS: Absolute Lymphocyte Count 2.79 X10^3/uL (0.83-4.51); Absolute Neutrophil Count 6.7 X10^3/uL (2.0-7.7); Basophil# 0.04 X10^3/uL; Basophil% 0.4 % (0-1); Eosinophil# 0.03 X10^3/uL; Eosinophils% 0.3 % (0-5); Hematocrit 43.7 % (37-47); Hemoglobin 14.2 g/dL (12.0-15.0); Lymphocyte # 2.79 X10^3/ul (0.83-4.51); Mean Corp Hgb Conc 32.5 g/dL (32-36); Mean Corpuscular Volume 89.2 fL (81-99); Mean Platelet Vol. 11.5 fl (6.2-12.0); Monocyte% 6.8 % (0-10); NRBC Flagged by Analyzer 0 % (0-5); Neutrophil # 6.73 X10^3/uL (2.7-7.7); Neutrophil % 65.2 % (47-70); POSITIVE MORPHOLOGY YES; Platelet Count 194 K/mm3 (150-450); RBC Distribution Width CV 14.1 % (11.6-14.6); RBC Distribution Width SD 46.2 fl (35.1-43.9); White Blood Count 10.3 K/mm3 (4.4-11.0)
[2021-03-14 12:34] LABS: Differential Indicated SCAN CRITERIA MET
[2021-03-14 12:53] LABS: Reactive Lymphocyte RARE
== END 2021-03-14 18:00 | disposition home or self-care (01) ==
LOC: LAB 11:37
PROVIDERS: Family Provider Family Medicine; PCP Family Medicine; Referring Provider Psychiatry & Neurology Psychiatry; Visit Provider Psychiatry & Neurology Psychiatry
DX: Z79.899 Other long term (current) drug therapy (principal)
CPT/HCPCS: 36415; 85025

== ENCOUNTER → 2021-04-10 15:17 | Outpatient (CLI) | payer MEDICARE, MEDICAID, SELFPAY ==
--- NOTE | 2021-04-10 15:28 | CT_ITS ---
STUDY: CT CHEST WITHOUT CONTRAST- LOW DOSE SCREENING PROTOCOL REASON FOR EXAM: Female, 55 years old. Former smoker. Quit smoking less than 10 years ago. 60 pack per year history. No current symptoms of lung cancer or pulmonary infection. Shared decision-making with referring PCP documented in patient''s record. RADIATION DOSAGE (If Supplied By Facility): CTDIvol = ( 3.02 ) mGy, DLP = ( 85.35 ) mGycm TECHNIQUE: Low dose screening CT examination performed from the base of the neck to the upper abdomen. Sagittal and coronal reformatted images performed. Sagittal and coronal MIP images provided. The measurements provided are average, rounded measurements per ACR guidelines. COMPARISON: 02/21/2020 FINDINGS: The lungs are normal. There is no demonstrated pleural abnormality. Normal heart and pericardium. There are calcifications of the coronary arteries. Normal mediastinum. Normal hilar regions. Normal unenhanced pulmonary arteries. Normal aorta arch and descending thoracic aorta. Normal osseous structures. Suspect splenomegaly. CT/Low Dose CT Lung Screening IMPRESSION: 1. No significant indeterminate incidental findings requiring additional imaging. 2. Incidental findings include splenomegaly.. ASSESSMENT CATEGORY: LungRADS 1 - Negative. Continue annual screening with LDCT in 12 months, per established ACR guidelines. Electronically Signed: Brandon Morgan MD at 9:07 EDT Tel , Service support ,
== END ==
PROVIDERS: PCP Family Medicine; Referring Provider Internal Medicine Pulmonary Disease; Visit Provider Internal Medicine Pulmonary Disease
DX: Z87.891 Personal history of nicotine dependence (principal)
CPT/HCPCS: 71271

== ENCOUNTER 2021-04-12 15:16 | Outpatient (RCR) | payer MEDICARE, MEDICAID, SELFPAY ==
[2021-04-12 16:50] LABS: Absolute Lymphocyte Count 3.15 X10^3/uL (0.83-4.51); Absolute Neutrophil Count 5.4 X10^3/uL (2.0-7.7); Basophil# 0.04 X10^3/uL; Basophil% 0.4 % (0-1); Eosinophil# 0.04 X10^3/uL; Eosinophils% 0.4 % (0-5); Hematocrit 43.4 % (37-47); Hemoglobin 13.6 g/dL (12.0-15.0); Lymphocyte # 3.15 X10^3/ul (0.83-4.51); Lymphocyte % 33.8 % (19-41); Mean Corp Hgb Conc 31.3 g/dL (32-36); Mean Corpuscular Hgb 28.5 pg (27.0-32.0); Mean Corpuscular Volume 90.8 fL (81-99); Mean Platelet Vol. 12.8 fl (6.2-12.0); Monocyte# 0.67 X10^3/uL; Monocyte% 7.2 % (0-10); NRBC Flagged by Analyzer 0 % (0-5); Neutrophil % 57.9 % (47-70); POSITIVE MORPHOLOGY YES; Platelet Count 149 K/mm3 (150-450); RBC Distribution Width SD 46.5 fl (35.1-43.9); Red Blood Count 4.78 M/mm3 (4.2-5.4); White Blood Count 9.3 K/mm3 (4.4-11.0)
[2021-04-12 17:05] LABS: Differential Indicated SCAN CRITERIA MET
[2021-04-12 17:32] LABS: Differential Comment SCANNED
== END 2021-04-12 18:00 | disposition home or self-care (01) ==
LOC: LAB 15:16
PROVIDERS: Family Provider Family Medicine; PCP Family Medicine; Referring Provider Psychiatry & Neurology Psychiatry; Visit Provider Psychiatry & Neurology Psychiatry
DX: Z79.899 Other long term (current) drug therapy (principal)
CPT/HCPCS: 36415; 85025

== ENCOUNTER 2021-06-05 15:23 | Outpatient (RCR) | payer MEDICARE, MEDICAID, SELFPAY ==
[2021-06-05 16:28] LABS: Absolute Lymphocyte Count 2.96 X10^3/uL (0.83-4.51); Absolute Neutrophil Count 6.1 X10^3/uL (2.0-7.7); Basophil# 0.03 X10^3/uL; Basophil% 0.3 % (0-1); Eosinophil# 0.03 X10^3/uL; Eosinophils% 0.3 % (0-5); Hematocrit 43.9 % (37-47); Hemoglobin 14.3 g/dL (12.0-15.0); Lymphocyte # 2.96 X10^3/ul (0.83-4.51); Lymphocyte % 30.5 % (19-41); Mean Corp Hgb Conc 32.6 g/dL (32-36); Mean Corpuscular Hgb 29.8 pg (27.0-32.0); Mean Corpuscular Volume 91.5 fL (81-99); Mean Platelet Vol. 12.1 fl (6.2-12.0); Monocyte# 0.59 X10^3/uL; Monocyte% 6.1 % (0-10); NRBC Flagged by Analyzer 0 % (0-5); Neutrophil # 6.08 X10^3/uL (2.7-7.7); Neutrophil % 62.6 % (47-70); POSITIVE MORPHOLOGY YES; Platelet Count 184 K/mm3 (150-450); RBC Distribution Width CV 13.9 % (11.6-14.6); RBC Distribution Width SD 47.5 fl (35.1-43.9); White Blood Count 9.7 K/mm3 (4.4-11.0)
[2021-06-05 16:34] LABS: Differential Indicated SCAN CRITERIA MET
[2021-06-05 16:53] LABS: Anisocytosis RARE; Macrocytosis RARE; Platelet Estimate ADEQUATE (ADEQ); Reactive Lymphocyte RARE; Red Cell Morphology N CHROM NORMAL (NORM C&C)
[2021-06-06 13:05] LABS: Pathologist Review Reviewed
== END 2021-06-05 18:00 | disposition home or self-care (01) ==
LOC: LAB 15:23
PROVIDERS: Family Provider Family Medicine; PCP Family Medicine; Referring Provider Psychiatry & Neurology Psychiatry; Visit Provider Psychiatry & Neurology Psychiatry
DX: Z79.899 Other long term (current) drug therapy (principal)
CPT/HCPCS: 36415; 85025

== ENCOUNTER 2021-07-03 09:54 | Outpatient (RCR) | payer MEDICARE, MEDICAID, SELFPAY ==
[2021-06-12 23:21] VITALS: BMI 36.6
[2021-07-03 10:23] LABS: Absolute Neutrophil Count 5.9 X10^3/uL (2.0-7.7)
== END 2021-07-03 18:00 | disposition home or self-care (01) ==
LOC: LAB 09:54
PROVIDERS: Family Provider Family Medicine; PCP Family Medicine; Referring Provider Psychiatry & Neurology Psychiatry; Visit Provider Psychiatry & Neurology Psychiatry
DX: Z79.899 Other long term (current) drug therapy (principal)
CPT/HCPCS: 36415

== ENCOUNTER 2021-07-30 16:28 | Emergency (ER) | payer MEDICARE, MEDICAID, SELFPAY ==
[2021-07-30 16:29] VITALS: BP 132/86; PULSE 105; RESP 18; TEMP 36.1; O2SAT 97; BMI 35.6
--- NOTE | 2021-07-30 16:47 | EDS_ITS ---
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 She states that 2 weeks ago she stopped her pravastatin. She wonders if this is what is causing her symptoms. She states that she is having an increase in her auditory hallucinations. She states she hears voices but a lot of noise and cannot really make out what they are saying. Because of the increase in hallucinations she states that she is having more panic attacks than normal. Today she states she has felt almost consciously anxious and at times worse than others. Because of this she made a comment that she was going to walk out in traffic because she wants the hallucinations to stop. She states that she does not believe that she would actually do this. She sees Dr. Hankins at the counseling center and saw her last month and is supposed to see her again next week. She currently lives in a [facility]ci. PFSH PFSH Home Medications glipizide 5 mg PO BIDAC 03/28/14 [History Last Taken 07/30/21] Fish Oil 1 ea PO DAILY 10/17/17 [History Last Taken 07/30/21] cholecalciferol (vitamin D3) [Vitamin D3] 1,000 unit PO DAILY 10/17/17 [History Last Taken 07/30/21] aspirin 325 mg PO DAILY@1600 07/22/18 [History Last Taken 07/30/21] lubiprostone [Amitiza] 24 mcg PO BID@0800,1600 07/22/18 [History Last Taken 07/30/21] omeprazole 20 mg PO DAILY 10/31/19 [History Last Taken 07/30/21] pramipexole 0.25 mg PO QHS 10/31/19 [History Last Taken 07/29/21] ferrous gluconate 324 mg PO BID@0800,1600 11/16/19 [History Last Taken 07/30/21] potassium chloride 20 meq PO DAILY 11/16/19 [History Last Taken 07/30/21] risperidone 1 mg PO QHS 11/16/19 [History Last Taken 07/29/21] clozapine 100 mg PO DAILY@0800 07/30/21 [History Last Taken 07/30/21] clozapine 300 mg PO QHS 07/30/21 [History Last Taken 07/29/21] desvenlafaxine succinate 50 mg PO DAILY 07/30/21 [History Last Taken 07/30/21] empagliflozin [Jardiance] 10 mg PO DAILY 07/30/21 [History Last Taken 07/30/21] fluticasone furoate-vilanterol [Breo Ellipta] 1 inh INHALATION DAILY 07/30/21 [History Last Taken 07/30/21] furosemide 20 mg PO DAILY 07/30/21 [History Last Taken 07/30/21] insulin glargine [Lantus Solostar U-100 Insulin] 48 unit SUBCUT DAILY@1600 07/30/21 [History Last Taken 07/30/21] metformin 1,000 mg PO BID 07/30/21 [History Last Taken 07/30/21] metoprolol succinate 25 mg PO QHS 07/30/21 [History Last Taken 07/29/21] pravastatin 20 mg PO QHS 07/30/21 [History Last Taken 07/29/21] psyllium [Metamucil] 1 packet PO QHS 07/30/21 [History Last Taken 07/29/21] trazodone 50 mg PO QHS 07/30/21 [History Last Taken 07/29/21] umeclidinium [Incruse Ellipta] 1 inh INHALATION DAILY 07/30/21 [History Last Taken 07/30/21] Allergy/AdvReac Type Severity Reaction Status Date / Time No Known Allergies Allergy Verified 11/06/19 15:26 Social History (Updated 07/30/21 @ 16:[address] Francisco Thompson, DO) Smoking Status: Former smoker substance use type: does not use ROS ROS ED Constitutional Constitutional ED: Denies chills or weight loss Eyes Eyes: Denies change in vision or diplopia ENT ENT ED: Denies ear pain, rhinorrhea or sore throat Cardiovascular Cardiovascular: Denies chest pain, orthopnea, palpitations or racing heartbeat Respiratory/Chest Respiratory/Chest: Denies cough, dyspnea or orthopnea Gastrointestinal Gastrointestinal: Denies abdominal pain, diarrhea, nausea or vomiting Genitourinary Genitourinary ED: Denies dysuria, hematuria or urinary frequency Musculoskeletal Musculoskeletal: Denies arthralgias or myalgias Integumentary Denies abscess or rash Neurologic Neurologic: Denies headache(s) or weakness Psychiatric Psychiatric: Reports anxiety, auditory hallucinations and panic attacks; Denies depression, suicidal ideation or suicidal thoughts Endocrine Endocrinology: Denies polydipsia, polyphagia or polyuria Allergic/Immunologic Allergic/Immunologic ED: Denies mouth swelling, tongue swelling or urticaria EXAM Physical Exam Const Vital Signs: 07/30/21 16:29 07/30/21 17:28 07/30/21 18:00 Temperature 97 F L Temperature Source Temporal Pulse Rate 105 H Respiratory Rate 18 17 17 Blood Pressure 132/86 H Blood Pressure Mean 101 Pulse Ox 97 Oxygen Delivery Method Room Air Room Air Room Air 07/30/21 19:30 07/30/21 20:00 07/30/21 22:38 Temperature Temperature Source Pulse Rate 75 75 Respiratory Rate 16 14 16 Blood Pressure 116/71 116/74 Blood Pressure Mean 86 88 Pulse Ox 96 99 Oxygen Delivery Method Room Air Room Air Positive well nourished and well developed General Appearance ED: well developed HEENT Reports normocephalic, head/scalp atraumatic, TM's normal bilaterally and moist mucous membranes Eyes PERRL and EOMs intact bilaterally Neck no lymphadenopathy, supple and no JVD Chest Wall inspection of chest normal Resp normal respiratory effort and clear to auscultation bilaterally Cardio regular rate, regular rhythm and no murmurs GI normal to inspection, nondistended, normoactive bowel sounds and non-tender Palpation: soft Back/Spine no CVA tenderness and normal ROM Extremity normal to inspection General Extremety ED: Negative for edema General Extremity: Negative for edema Neuro oriented x3 and CN's II-XII intact bilaterally Sensorium / Orientation: alert Motor Exam: strength 5/5 throughout Psych mental status grossly normal Appearance: grossly normal Attitude: other Appears internally stimulated Activity / Motor Behavior: appropriate eye contact and restless Speech: pressured Mood & Affect: anxious; Negative for depressed or tearful Thought Content: No suicidality, No homicidality and hallucination(s) Skin no rashes or lesions noted and no wounds MDM MDM MDM Narrative Medical decision making narrative: Patient appears very internally stimulated and distressed by her auditory hallucinations. I offered to give her something to help her calm her down and she agreed and she was administered Geodon 10 mg. We will medically clear her and crisis will be up to evaluate the patient. They are in agreement that the patient would benefit from inpatient psychiatric stabilization. Patient was accepted to the [facility] psychiatry. Lab Data Labs: Laboratory Results - last 24 hr 07/30/21 07/30/21 07/30/21 16:50 16:50 16:50 WBC 10.7 RBC 5.02 Hgb 14.5 Hct 44.5 MCV 88.6 MCH 28.9 MCHC 32.6 RDW Std Deviation 44.2 H RDW Coeff of Tyesha 13.6 Plt Count 228 MPV 9.3 Immature Gran % (Auto) 0.400 Neut % (Auto) 67.2 Lymph % (Auto) 24.5 [place] % (Auto) 7.4 Eos % (Auto) 0.2 Baso % (Auto) 0.3 Absolute Neuts (auto) 7.2 Absolute Lymphs (auto) 2.62 Nucleated RBC % 0 Sodium 133 L Potassium 3.9 Chloride 101 Carbon Dioxide 24.0 Anion Gap 8 BUN 11 Creatinine 0.68 Estim Creat Clear Calc 68.88 Est GFR (MDRD) Af Amer 114 Est GFR (MDRD) Non-Af 95 BUN/Creatinine Ratio 16.2 Glucose 139 H Calcium 8.9 Total Bilirubin 0.50 AST 21 ALT 33 Alkaline Phosphatase 113 Total Protein 7.9 Albumin 3.8 Globulin 4.1 Albumin/Globulin Ratio 0.9 Urine Opiates Screen Urine Methadone Screen Ur Barbiturates Screen Ur Phencyclidine Scrn Ur Amphetamines Screen U Methamphetamin-MDMA U Benzodiazepines Scrn Urine Cocaine Screen U Cannabinoids Screen Ur Drug Screen Comment Ethyl Alcohol < 3.0 07/30/21 17:06 WBC RBC Hgb Hct MCV MCH MCHC RDW Std Deviation RDW Coeff of Tyesha Plt Count MPV Immature Gran % (Auto) Neut % (Auto) Lymph % (Auto) [place] % (Auto) Eos % (Auto) Baso % (Auto) Absolute Neuts (auto) Absolute Lymphs (auto) Nucleated RBC % Sodium Potassium Chloride Carbon Dioxide Anion Gap BUN Creatinine Estim Creat Clear Calc Est GFR (MDRD) Af Amer Est GFR (MDRD) Non-Af BUN/Creatinine Ratio Glucose Calcium Total Bilirubin AST ALT Alkaline Phosphatase Total Protein Albumin Globulin Albumin/Globulin Ratio Urine Opiates Screen NEGATIVE Urine Methadone Screen NEGATIVE Ur Barbiturates Screen NEGATIVE Ur Phencyclidine Scrn NEGATIVE Ur Amphetamines Screen NEGATIVE U Methamphetamin-MDMA NEGATIVE U Benzodiazepines Scrn NEGATIVE Urine Cocaine Screen NEGATIVE U Cannabinoids Screen NEGATIVE Ur Drug Screen Comment Ethyl Alcohol Discharge Plan Triage Chief Complaint: Suicidal ED Provider: Francisco Thompson Dx/Rx/DC Orders Clinical Impression: Schizophrenia, Anxiety Prescriptions: No Action glipizide 5 MG tablet 5 mg PO BIDAC RF: 0 cholecalciferol (vitamin D3) [Vitamin D3] 1,000 UNIT capsule 1,000 unit PO DAILY RF: 0 Fish Oil 1 EACH capsule 1 ea PO DAILY RF: 0 aspirin 325 MG tablet,delayed release (DR/EC) 325 mg PO DAILY@1600 RF: 0 lubiprostone [Amitiza] 24 MCG capsule 24 mcg PO BID@0800,1600 RF: 0 pramipexole 0.5 MG tablet 0.25 mg PO QHS RF: 0 omeprazole 20 MG capsule,delayed release(DR/EC) 20 mg PO DAILY RF: 0 potassium chloride 20 MEQ tablet 20 meq PO DAILY RF: 0 risperidone 1 MG tablet 1 mg PO QHS RF: 0 ferrous gluconate 324 MG tablet 324 mg PO BID@0800,1600 RF: 0 metoprolol succinate 25 mg Tablet Extended Release 24 Hr 25 mg PO QHS RF: 0 Jardiance 10 mg Tablet 10 mg PO DAILY RF: 0 metformin 500 mg tablet 1,000 mg PO BID RF: 0 trazodone 50 mg Tablet 50 mg PO QHS RF: 0 Metamucil Packet 1 packet PO QHS RF: 0 pravastatin 20 mg tablet 20 mg PO QHS RF: 0 furosemide 20 mg tablet 20 mg PO DAILY RF: 0 Lantus Solostar U-100 Insulin 100 unit/mL (3 mL) insulin pen 48 unit SUBCUT DAILY@1600 RF: 0 desvenlafaxine succinate 50 mg tablet extended release 24 hr 50 mg PO DAILY RF: 0 Breo Ellipta 100-25 mcg/dose blister with device 1 inh INHALATION DAILY RF: 0 Incruse Ellipta 62.5 mcg/actuation blister with device 1 inh INHALATION DAILY RF: 0 clozapine 100 MG tablet 300 mg PO QHS RF: 0 clozapine 100 MG tablet 100 mg PO DAILY@0800 RF: 0 Primary Care Provider: Boris Vance Referrals: Boris Vance MD [Primary Care Provider] - Disposition Dis[facility] Hospital [facility]
[2021-07-30] MEDS: Ziprasidone IM 20 MG/ML VIAL 10 MG IM (17:03)
[2021-07-30 17:17] LABS: Absolute Lymphocyte Count 2.62 X10^3/uL (0.83-4.51); Absolute Neutrophil Count 7.2 X10^3/uL (2.0-7.7); Basophil# 0.03 X10^3/uL; Basophil% 0.3 % (0-1); Eosinophil# 0.02 X10^3/uL; Eosinophils% 0.2 % (0-5); Hematocrit 44.5 % (37-47); Hemoglobin 14.5 g/dL (12.0-15.0); Lymphocyte # 2.62 X10^3/ul (0.83-4.51); Lymphocyte % 24.5 % (19-41); Mean Corp Hgb Conc 32.6 g/dL (32-36); Mean Corpuscular Hgb 28.9 pg (27.0-32.0); Mean Corpuscular Volume 88.6 fL (81-99); Mean Platelet Vol. 9.3 fl (6.2-12.0); Monocyte# 0.79 X10^3/uL; Monocyte% 7.4 % (0-10); NRBC Flagged by Analyzer 0 % (0-5); Neutrophil % 67.2 % (47-70); Platelet Count 228 K/mm3 (150-450); RBC Distribution Width CV 13.6 % (11.6-14.6); RBC Distribution Width SD 44.2 fl (35.1-43.9); Red Blood Count 5.02 M/mm3 (4.2-5.4); White Blood Count 10.7 K/mm3 (4.4-11.0)
[2021-07-30 17:23] LABS: ALB/GLOB Ratio 0.9 RATIO (0.9-2.4); AST(SGOT) 21 U/L (15-37); Alanine Aminotransfer ALT/SGPT 33 U/L (13-56); Albumin, Serum 3.8 g/dL (3.2-5.0); Alkaline Phosphatase 113 U/L (45-117); Anion Gap 8 (5-15); BUN 11 mg/dL (7-18); BUN/Creat Ratio 16.2 RATIO (10-20); Calcium,Total 8.9 mg/dL (8.5-10.1); Chloride 101 mmol/L (98-107); Creatinine, Serum 0.68 mg/dL (0.55-1.02); EST Glomerular Filtration Rate 95 mL/min (>60); Est Glom Filt Rate - Afr Amer 114 mL/min (>60); Estimated Creatinine Clearance 68.88 ml/min; Globulin 4.1 g/dL (2.2-4.2); Glucose 139 mg/dL (74-106); Potassium 3.9 mmol/L (3.5-5.1); Protein, Total 7.9 g/dL (6.4-8.2); Sodium Level 133 mmol/L (136-145)
[2021-07-30 17:27] LABS: Amphetamine Urine VISTA NEGATIVE (<1000 ng/mL); Barbiturate Urine VISTA NEGATIVE (< 200 ng/mL); Benzodiazepine Urine VISTA NEGATIVE (< 200 ng/mL); Cocaine Urine VISTA NEGATIVE (< 300 ng/mL); Ecstacy Urine VISTA NEGATIVE (< 500 ng/mL); Methadone Urine VISTA NEGATIVE (< 300 ng/mL); PCP Urine VISTA NEGATIVE (< 25 ng/mL); THC Urine VISTA NEGATIVE (< 50 ng/mL); Vista UDS pH Range 6
[2021-07-30 17:28] VITALS: RESP 17
[2021-07-30 17:52] LABS: Alcohol, Blood (Medical)-Serum < 3.0 mg/dL
[2021-07-30 18:00] VITALS: RESP 17
--- NOTE | 2021-07-30 18:10 | NURSING ---
CRISIS IN ROOM WITH PATIENT
--- NOTE | 2021-07-30 18:27 | CM.ED ---
SOCIAL WORK diversified crops farmworkerStephanie here and assessed patient. Plan for referral to inpatient psych. Crisis working on placement. Monique Rodriguez, HAND BRUSH FILLER, MOTOR BIKE MECHANIC
[2021-07-30 19:30] VITALS: BP 116/71; PULSE 75; RESP 16; O2SAT 96
[2021-07-30 20:00] VITALS: RESP 14
--- NOTE | 2021-07-30 20:14 | ED.RN ---
CALLED PHYSICIANS THE ETA WOULD BE 4 HOURS
--- NOTE | 2021-07-30 20:26 | ED.RN ---
REPORT GIVEN TO JAH CRUZ AT [facility]. CURRENTLY AWAITING TRANSPORT.
[2021-07-30] MEDS: Pravastatin 20 MG Tablet PO (20:38)
[2021-07-30] MEDS: RisperiDONE 1 MG Tablet PO (20:38)
[2021-07-30] MEDS: Pramipexole Di-HCl 0.25 MG Tablet PO (20:38)
[2021-07-30] MEDS: Metoprolol(XL)Succ 25 MG Tablet PO (20:38)
[2021-07-30 22:38] VITALS: BP 116/74; PULSE 75; RESP 16; O2SAT 99
--- NOTE | 2021-07-31 00:24 | ED.RN ---
report t alex. pt aware leaving for inpatient treatment.
--- NOTE | 2021-07-31 00:36 | ED.RN ---
attempted to call [facility] to given pt eta. multiple attempts unable to get through to anyone.
== END 2021-07-31 00:36 ==
PROVIDERS: Emergency Provider Emergency Medicine; PCP Family Medicine
DX: F20.9 Schizophrenia, unspecified (principal); F41.9 Anxiety disorder, unspecified; Z87.891 Personal history of nicotine dependence; Z79.899 Other long term (current) drug therapy; Z79.82 Long term (current) use of aspirin; Z79.51 Long term (current) use of inhaled steroids
CPT/HCPCS: 80053; 80307; 82077; 85025; 87426; 96372; 99285; J3486

== ENCOUNTER 2021-09-05 12:35 | Outpatient (RCR) | payer MEDICARE, MEDICAID, SELFPAY ==
[2021-07-12 20:38] VITALS: BMI 36.6
[2021-08-28 13:45] LABS: Absolute Lymphocyte Count 2.44 X10^3/uL (0.83-4.51); Basophil# 0.04 X10^3/uL; Basophil% 0.4 % (0-1); Eosinophil# 0.02 X10^3/uL; Eosinophils% 0.2 % (0-5); Hematocrit 40.5 % (37-47); Hemoglobin 13.6 g/dL (12.0-15.0); Lymphocyte # 2.44 X10^3/ul (0.83-4.51); Mean Corp Hgb Conc 33.6 g/dL (32-36); Mean Corpuscular Hgb 29.7 pg (27.0-32.0); Mean Corpuscular Volume 88.4 fL (81-99); Mean Platelet Vol. 9.6 fl (6.2-12.0); Monocyte# 0.55 X10^3/uL; Monocyte% 6.1 % (0-10); NRBC Flagged by Analyzer 0 % (0-5); Neutrophil # 5.96 X10^3/uL (2.7-7.7); Neutrophil % 65.9 % (47-70); POSITIVE MORPHOLOGY YES; Platelet Count 195 K/mm3 (150-450); RBC Distribution Width CV 13.8 % (11.6-14.6); RBC Distribution Width SD 44.4 fl (35.1-43.9); Red Blood Count 4.58 M/mm3 (4.2-5.4); White Blood Count 9.1 K/mm3 (4.4-11.0)
[2021-08-28 13:46] LABS: Differential Indicated SCAN CRITERIA MET
[2021-09-05 13:06] LABS: Absolute Lymphocyte Count 2.17 X10^3/uL (0.83-4.51); Absolute Neutrophil Count 6.7 X10^3/uL (2.0-7.7); Basophil# 0.03 X10^3/uL; Basophil% 0.3 % (0-1); Eosinophil# 0.01 X10^3/uL; Eosinophils% 0.1 % (0-5); Hematocrit 41.2 % (37-47); Hemoglobin 13.1 g/dL (12.0-15.0); Lymphocyte # 2.17 X10^3/ul (0.83-4.51); Lymphocyte % 22.7 % (19-41); Mean Corp Hgb Conc 31.8 g/dL (32-36); Mean Corpuscular Hgb 28.9 pg (27.0-32.0); Mean Corpuscular Volume 90.9 fL (81-99); Mean Platelet Vol. 9.7 fl (6.2-12.0); Monocyte# 0.64 X10^3/uL; Monocyte% 6.7 % (0-10); NRBC Flagged by Analyzer 0 % (0-5); Neutrophil # 6.68 X10^3/uL (2.7-7.7); Neutrophil % 69.9 % (47-70); Platelet Count 205 K/mm3 (150-450); RBC Distribution Width SD 46.1 fl (35.1-43.9); Red Blood Count 4.53 M/mm3 (4.2-5.4); White Blood Count 9.6 K/mm3 (4.4-11.0)
== END 2021-09-11 18:00 | disposition home or self-care (01) ==
LOC: LAB 12:35
PROVIDERS: Family Provider Family Medicine; PCP Family Medicine; Referring Provider Psychiatry & Neurology Psychiatry; Visit Provider Psychiatry & Neurology Psychiatry
DX: Z79.899 Other long term (current) drug therapy (principal)
CPT/HCPCS: 36415; 85025

== ENCOUNTER 2021-09-24 09:02 | Outpatient (RCR) | payer MEDICARE, MEDICAID, SELFPAY ==
[2021-09-12 03:21] VITALS: BMI 36.6
[2021-09-24 10:16] LABS: Absolute Lymphocyte Count 2.52 X10^3/uL (0.83-4.51); Absolute Neutrophil Count 6.5 X10^3/uL (2.0-7.7); Basophil# 0.05 X10^3/uL; Basophil% 0.5 % (0-1); Eosinophil# 0.02 X10^3/uL; Eosinophils% 0.2 % (0-5); Hematocrit 44.1 % (37-47); Hemoglobin 14.4 g/dL (12.0-15.0); Lymphocyte # 2.52 X10^3/ul (0.83-4.51); Lymphocyte % 26.2 % (19-41); Mean Corp Hgb Conc 32.7 g/dL (32-36); Mean Corpuscular Hgb 29.4 pg (27.0-32.0); Mean Corpuscular Volume 90.2 fL (81-99); Mean Platelet Vol. 12.3 fl (6.2-12.0); Monocyte# 0.45 X10^3/uL; Monocyte% 4.7 % (0-10); NRBC Flagged by Analyzer 0 % (0-5); Neutrophil # 6.53 X10^3/uL (2.7-7.7); Neutrophil % 67.9 % (47-70); Platelet Count 179 K/mm3 (150-450); RBC Distribution Width SD 46.2 fl (35.1-43.9); Red Blood Count 4.89 M/mm3 (4.2-5.4); White Blood Count 9.6 K/mm3 (4.4-11.0)
== END 2021-10-13 18:00 | disposition home or self-care (01) ==
LOC: LAB 09:02
PROVIDERS: Family Provider Family Medicine; PCP Family Medicine; Referring Provider Psychiatry & Neurology Psychiatry; Visit Provider Psychiatry & Neurology Psychiatry
DX: Z79.899 Other long term (current) drug therapy (principal)
CPT/HCPCS: 36415; 85025

== ENCOUNTER 2021-10-16 09:00 | Outpatient (RCR) | payer MEDICARE, MEDICAID, SELFPAY ==
[2021-10-14 04:14] VITALS: BMI 36.6
[2021-10-16 09:25] LABS: Absolute Lymphocyte Count 2.02 X10^3/uL (0.83-4.51); Absolute Neutrophil Count 6.2 X10^3/uL (2.0-7.7); Basophil# 0.05 X10^3/uL; Basophil% 0.6 % (0-1); Eosinophil# 0.01 X10^3/uL; Eosinophils% 0.1 % (0-5); Hematocrit 44.2 % (37-47); Hemoglobin 14.2 g/dL (12.0-15.0); Lymphocyte # 2.02 X10^3/ul (0.83-4.51); Lymphocyte % 23.1 % (19-41); Mean Corp Hgb Conc 32.1 g/dL (32-36); Mean Corpuscular Hgb 28.8 pg (27.0-32.0); Mean Corpuscular Volume 89.7 fL (81-99); Mean Platelet Vol. 9.6 fl (6.2-12.0); Monocyte# 0.45 X10^3/uL; Monocyte% 5.1 % (0-10); NRBC Flagged by Analyzer 0 % (0-5); Neutrophil # 6.19 X10^3/uL (2.7-7.7); Neutrophil % 70.6 % (47-70); Platelet Count 226 K/mm3 (150-450); RBC Distribution Width CV 13.7 % (11.6-14.6); RBC Distribution Width SD 44.6 fl (35.1-43.9); Red Blood Count 4.93 M/mm3 (4.2-5.4); White Blood Count 8.8 K/mm3 (4.4-11.0)
== END 2021-11-12 18:00 | disposition home or self-care (01) ==
LOC: LAB 09:00
PROVIDERS: Family Provider Family Medicine; PCP Family Medicine; Referring Provider Psychiatry & Neurology Psychiatry; Visit Provider Psychiatry & Neurology Psychiatry
DX: Z79.899 Other long term (current) drug therapy (principal)
CPT/HCPCS: 36415; 82140; 85025

== ENCOUNTER 2021-11-20 08:35 | Outpatient (RCR) | payer MEDICARE, MEDICAID, SELFPAY ==
[2021-11-13 01:10] VITALS: BMI 36.6
[2021-11-20 09:17] LABS: Absolute Lymphocyte Count 2.28 X10^3/uL (0.83-4.51); Absolute Neutrophil Count 6.6 X10^3/uL (2.0-7.7); Basophil# 0.07 X10^3/uL; Basophil% 0.7 % (0-1); Differential Indicated SCAN CRITERIA MET; Eosinophil# 0.02 X10^3/uL; Eosinophils% 0.2 % (0-5); Hematocrit 45.9 % (37-47); Hemoglobin 14.7 g/dL (12.0-15.0); Lymphocyte # 2.28 X10^3/ul (0.83-4.51); Lymphocyte % 23.7 % (19-41); Mean Corpuscular Hgb 29.2 pg (27.0-32.0); Mean Corpuscular Volume 91.1 fL (81-99); Mean Platelet Vol. 9.9 fl (6.2-12.0); Monocyte# 0.59 X10^3/uL; Monocyte% 6.1 % (0-10); NRBC Flagged by Analyzer 0 % (0-5); Neutrophil # 6.64 X10^3/uL (2.7-7.7); POSITIVE MORPHOLOGY YES; Platelet Count 227 K/mm3 (150-450); RBC Distribution Width SD 46.8 fl (35.1-43.9); Red Blood Count 5.04 M/mm3 (4.2-5.4); White Blood Count 9.6 K/mm3 (4.4-11.0)
[2021-11-20 09:40] LABS: Reactive Lymphocyte RARE
== END 2021-11-20 23:59 | disposition home or self-care (01) ==
LOC: LAB 08:35
PROVIDERS: Family Provider Family Medicine; PCP Family Medicine; Referring Provider Psychiatry & Neurology Psychiatry; Visit Provider Psychiatry & Neurology Psychiatry
DX: Z79.899 Other long term (current) drug therapy (principal)
CPT/HCPCS: 36415; 85025

== ENCOUNTER 2021-12-13 08:59 | Outpatient (RCR) | payer MEDICARE, MEDICAID, SELFPAY ==
[2021-12-11 09:41] VITALS: BMI 36.6
[2021-12-13 11:28] LABS: Absolute Lymphocyte Count 2.05 X10^3/uL (0.83-4.51); Absolute Neutrophil Count 4.8 X10^3/uL (2.0-7.7); Basophil# 0.04 X10^3/uL; Basophil% 0.5 % (0-1); Eosinophil# 0.01 X10^3/uL; Eosinophils% 0.1 % (0-5); Hematocrit 44.6 % (37-47); Hemoglobin 14.6 g/dL (12.0-15.0); Lymphocyte # 2.05 X10^3/ul (0.83-4.51); Lymphocyte % 27.6 % (19-41); Mean Corp Hgb Conc 32.7 g/dL (32-36); Mean Corpuscular Hgb 29.8 pg (27.0-32.0); Mean Platelet Vol. 12.2 fl (6.2-12.0); Monocyte# 0.51 X10^3/uL; Monocyte% 6.9 % (0-10); NRBC Flagged by Analyzer 0 % (0-5); Neutrophil % 64.5 % (47-70); POSITIVE MORPHOLOGY YES; Platelet Count 193 K/mm3 (150-450); RBC Distribution Width CV 13.6 % (11.6-14.6); RBC Distribution Width SD 45.6 fl (35.1-43.9); White Blood Count 7.4 K/mm3 (4.4-11.0)
[2021-12-13 11:41] LABS: Differential Indicated SCAN CRITERIA MET
[2021-12-13 12:05] LABS: Reactive Lymphocyte RARE
== END 2022-01-10 18:00 | disposition home or self-care (01) ==
LOC: LAB 08:59
PROVIDERS: Family Provider Family Medicine; PCP Family Medicine; Referring Provider Psychiatry & Neurology Psychiatry; Visit Provider Psychiatry & Neurology Psychiatry
DX: Z79.899 Other long term (current) drug therapy (principal)
CPT/HCPCS: 36415; 85025

== ENCOUNTER 2022-01-14 12:51 | Outpatient (RCR) | payer MEDICARE, MEDICAID, SELFPAY ==
[2022-01-11 02:25] VITALS: BMI 36.6
[2022-01-14 13:38] LABS: Absolute Lymphocyte Count 3.17 X10^3/uL (0.83-4.51); Absolute Neutrophil Count 6.3 X10^3/uL (2.0-7.7); Basophil# 0.06 X10^3/uL; Basophil% 0.6 % (0-1); Eosinophil# 0.02 X10^3/uL; Eosinophils% 0.2 % (0-5); Hematocrit 46.8 % (37-47); Lymphocyte # 3.17 X10^3/ul (0.83-4.51); Lymphocyte % 30.9 % (19-41); Mean Corp Hgb Conc 32.1 g/dL (32-36); Mean Corpuscular Hgb 28.6 pg (27.0-32.0); Mean Corpuscular Volume 89.1 fL (81-99); Mean Platelet Vol. 10.7 fl (6.2-12.0); Monocyte# 0.65 X10^3/uL; Monocyte% 6.3 % (0-10); NRBC Flagged by Analyzer 0 % (0-5); Neutrophil # 6.32 X10^3/uL (2.7-7.7); Neutrophil % 61.6 % (47-70); POSITIVE MORPHOLOGY YES; Platelet Count 224 K/mm3 (150-450); RBC Distribution Width CV 13.5 % (11.6-14.6); RBC Distribution Width SD 44.2 fl (35.1-43.9); Red Blood Count 5.25 M/mm3 (4.2-5.4); White Blood Count 10.3 K/mm3 (4.4-11.0)
[2022-01-14 13:39] LABS: Differential Indicated SCAN CRITERIA MET
[2022-01-14 14:04] LABS: Reactive Lymphocyte RARE
== END 2022-01-14 18:00 | disposition home or self-care (01) ==
LOC: LAB 12:51
PROVIDERS: Family Provider Family Medicine; PCP Family Medicine; Referring Provider Psychiatry & Neurology Psychiatry; Visit Provider Psychiatry & Neurology Psychiatry
DX: Z79.899 Other long term (current) drug therapy (principal)
CPT/HCPCS: 36415; 85025

== ENCOUNTER 2022-02-13 08:11 | Outpatient (RCR) | payer MEDICARE, MEDICAID, SELFPAY ==
[2022-02-10 03:23] VITALS: BMI 36.6
[2022-02-13 08:34] LABS: Absolute Lymphocyte Count 1.99 X10^3/uL (0.83-4.51); Absolute Neutrophil Count 5.1 X10^3/uL (2.0-7.7); Basophil# 0.04 X10^3/uL; Basophil% 0.5 % (0-1); Eosinophil# 0.01 X10^3/uL; Eosinophils% 0.1 % (0-5); Hematocrit 45.2 % (37-47); Hemoglobin 14.4 g/dL (12.0-15.0); Lymphocyte # 1.99 X10^3/ul (0.83-4.51); Lymphocyte % 25.7 % (19-41); Mean Corp Hgb Conc 31.9 g/dL (32-36); Mean Corpuscular Hgb 28.9 pg (27.0-32.0); Mean Corpuscular Volume 90.6 fL (81-99); Mean Platelet Vol. 10.2 fl (6.2-12.0); Monocyte# 0.55 X10^3/uL; Monocyte% 7.1 % (0-10); NRBC Flagged by Analyzer 0 % (0-5); Neutrophil # 5.11 X10^3/uL (2.7-7.7); Neutrophil % 66.1 % (47-70); POSITIVE MORPHOLOGY YES; Platelet Count 231 K/mm3 (150-450); RBC Distribution Width CV 13.9 % (11.6-14.6); RBC Distribution Width SD 45.9 fl (35.1-43.9); Red Blood Count 4.99 M/mm3 (4.2-5.4); White Blood Count 7.7 K/mm3 (4.4-11.0)
[2022-02-13 08:37] LABS: Differential Indicated SCAN CRITERIA MET
== END 2022-02-13 18:00 | disposition home or self-care (01) ==
LOC: LAB 08:11
PROVIDERS: Family Provider Family Medicine; PCP Family Medicine; Referring Provider Psychiatry & Neurology Psychiatry; Visit Provider Psychiatry & Neurology Psychiatry
DX: Z79.899 Other long term (current) drug therapy (principal)
CPT/HCPCS: 36415; 85025

== ENCOUNTER 2022-03-20 10:38 | Outpatient (RCR) | payer MEDICARE, MEDICAID, SELFPAY ==
[2022-03-12 20:43] VITALS: BMI 36.6
[2022-03-20 11:29] LABS: Absolute Lymphocyte Count 2.53 X10^3/uL (0.83-4.51); Absolute Neutrophil Count 5.7 X10^3/uL (2.0-7.7); Basophil# 0.02 X10^3/uL; Basophil% 0.2 % (0-1); Eosinophil# 0.01 X10^3/uL; Eosinophils% 0.1 % (0-5); Hematocrit 43.1 % (37-47); Hemoglobin 13.9 g/dL (12.0-15.0); Lymphocyte # 2.53 X10^3/ul (0.83-4.51); Lymphocyte % 28.3 % (19-41); Mean Corp Hgb Conc 32.3 g/dL (32-36); Mean Corpuscular Volume 89.8 fL (81-99); Mean Platelet Vol. 11.1 fl (6.2-12.0); Monocyte# 0.63 X10^3/uL; NRBC Flagged by Analyzer 0 % (0-5); Neutrophil # 5.73 X10^3/uL (2.7-7.7); Neutrophil % 64.2 % (47-70); POSITIVE MORPHOLOGY YES; Platelet Count 191 K/mm3 (150-450); RBC Distribution Width CV 13.7 % (11.6-14.6); RBC Distribution Width SD 44.5 fl (35.1-43.9); White Blood Count 8.9 K/mm3 (4.4-11.0)
[2022-03-20 11:33] LABS: Differential Indicated SCAN CRITERIA MET
[2022-03-20 11:55] LABS: Platelet Estimate ADEQUATE (ADEQ); Red Cell Morphology NORM C+C NORMAL (NORM C&C)
== END 2022-03-20 23:59 | disposition home or self-care (01) ==
LOC: LAB 10:38
PROVIDERS: Family Provider Family Medicine; PCP Family Medicine; Referring Provider Psychiatry & Neurology Psychiatry; Visit Provider Psychiatry & Neurology Psychiatry
DX: Z79.899 Other long term (current) drug therapy (principal)
CPT/HCPCS: 36415; 85025

== ENCOUNTER 2022-04-09 15:44 | Emergency (ER) | payer MEDICARE, MEDICAID, SELFPAY ==
[2022-04-09 15:46] VITALS: BP 149/94; PULSE 117; RESP 16; TEMP 36.2; O2SAT 95; BMI 35.6
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
--- NOTE | 2022-04-09 16:01 | EX.ED.VIS.PS ---
HPI <Dr. Mac Carlos DO - Last Filed: 04/10/22 16:07> HPI - Psych History of Present Illness Chief Complaint: Mental Health Informant: patient Narrative Narrative: Patient sent in from correction for evaluation. History of depression and schizophrenia. She states for last 2 weeks she has felt sick on the inside. Specifically discussion with patient feels inside her head. She has been taking her medications noted on paperwork is positive pain and desvenlafaxine. She is followed by Dr. Mccoy. Last time seen a month ago. She denies any changes medications. Reports she does hear voices which are faint, states cannot make out what they are saying. Denies stating the voices are telling her to hurt her self as noted on report. She denies any visual hallucinations. She denies any suicidal or homicidal ideations. She denies any illicit drug use or alcohol. She is a diabetic glucose in the 100s per the patient. Denies vomiting diarrhea. Denies urinary symptoms. Apparently there was increasing aggression towards other patrons she required injections of mood stabilizer yesterday. She states she was just being smart with other people. There was no physical injuries or altercations. Prior similar symptoms: Yes PFSH <Dr. Mac Carlos, DO - Last Filed: 04/10/22 16:07> [facility] Home Medications glipizide 5 mg tablet 5 mg PO BIDAC DIABETES 03/28/14 [History Last Taken 07/30/21] cholecalciferol (vitamin D3) 25 mcg (1,000 unit) capsule (Vitamin D3) 1,000 unit PO DAILY SUPPLEMENT 10/17/17 [History Last Taken 07/30/21] omega-3 fatty acids-fish oil 340 mg-1,000 mg capsule (Fish Oil) 1 ea PO DAILY SUPPLEMENT 10/17/17 [History Last Taken 07/30/21] aspirin 325 mg tablet,delayed release 325 mg PO DAILY@1600 heart health 07/22/18 [History Last Taken 07/30/21] lubiprostone 24 mcg capsule (Amitiza) 24 mcg PO BID@0800,1600 bowels 07/22/18 [History Last Taken 07/30/21] omeprazole 20 mg capsule,delayed release 20 mg PO DAILY indigestion 10/31/19 [History Last Taken 07/30/21] pramipexole 0.5 mg tablet 0.25 mg PO QHS sleep/restless legs 10/31/19 [History Last Taken 07/29/21] ferrous gluconate 324 mg (37.5 mg iron) tablet 324 mg PO BID@0800,1600 supplement 11/16/19 [History Last Taken 07/30/21] potassium chloride 20 mEq tablet,extended release(part/cryst) 20 meq PO DAILY supplement 11/16/19 [History Last Taken 07/30/21] risperidone 1 mg tablet 1 mg PO QHS mood 11/16/19 [History Last Taken 07/29/21] clozapine 100 mg tablet 100 mg PO DAILY@0800 SCHIZOPHRENIA 07/30/21 [History Last Taken 07/30/21] clozapine 100 mg tablet 300 mg PO QHS SCHIZOPHRENIA 07/30/21 [History Last Taken 07/29/21] desvenlafaxine succinate 50 mg tablet,extended release 24 hr 50 mg PO DAILY MOOD 07/30/21 [History Last Taken 07/30/21] empagliflozin 10 mg tablet (Jardiance) 10 mg PO DAILY 07/30/21 [History Last Taken 07/30/21] fluticasone furoate 100 mcg-vilanterol 25 mcg/dose inhalation powder (Breo Ellipta) 1 inh inhalation DAILY SOB 07/30/21 [History Last Taken 07/30/21] furosemide 20 mg tablet 20 mg PO DAILY FLUID 07/30/21 [History Last Taken 07/30/21] insulin glargine 100 unit/mL (3 mL) subcutaneous pen (Lantus Solostar U-100 Insulin) 48 unit subcut DAILY@1600 DM 07/30/21 [History Last Taken 07/30/21] metformin 500 mg tablet 1,000 mg PO BID DM 07/30/21 [History Last Taken 07/30/21] metoprolol succinate 25 mg tablet,extended release 24 hr 25 mg PO QHS 07/30/21 [History Last Taken 07/29/21] pravastatin 20 mg tablet 20 mg PO QHS CHOLESTEROL 07/30/21 [History Last Taken 07/29/21] psyllium 1 packet PO QHS SUPPLEMENT 07/30/21 [History Last Taken 07/29/21] trazodone 50 mg tablet 50 mg PO QHS 07/30/21 [History Last Taken 07/29/21] umeclidinium 62.5 mcg/actuation blister powder for inhalation (Incruse Ellipta) 1 inh inhalation DAILY SOB 07/30/21 [History Last Taken 07/30/21] Allergy/AdvReac Type Severity Reaction Status Date / Time No Known Allergies Allergy Verified 04/09/22 15:50 Social History Smoking Status: Former smoker substance use type: does not use ROS <Dr. Mac Carlos DO - Last Filed: 04/10/22 16:07> ROS ED Constitutional Constitutional ED: Denies chills, fever(s) or sweats Eyes Eyes: Denies change in vision ENT ENT ED: Denies dysphagia or sore throat Cardiovascular Cardiovascular: Denies chest pain, leg edema, palpitations or racing heartbeat Respiratory/Chest Respiratory/Chest: Denies cough, dyspnea or dyspnea on exertion Gastrointestinal Gastrointestinal: Denies abdominal pain, diarrhea, nausea or vomiting Genitourinary Genitourinary ED: Denies dysuria, hematuria or urinary frequency Musculoskeletal Musculoskeletal: Denies back pain, extremity pain or neck pain Integumentary Denies rash or wounds Neurologic Neurologic: Denies headache(s), paresthesias or weakness Psychiatric Psychiatric: Reports depression; Denies suicidal ideation or suicidal thoughts EXAM <Dr. Mac Carlos DO - Last Filed: 04/10/22 16:07> Physical Exam Const Vital Signs: 04/09/22 20:00 04/09/22 23:00 04/10/22 00:00 Temperature Temperature Source Pulse Rate Respiratory Rate 16 15 15 Blood Pressure Blood Pressure Mean Pulse Ox Oxygen Delivery Method Room Air Room Air Room Air 04/10/22 02:00 04/10/22 04:00 04/10/22 06:00 Temperature 98.9 F Temperature Source Temporal Pulse Rate 114 H Respiratory Rate 16 15 16 Blood Pressure 116/76 Blood Pressure Mean 89 Pulse Ox 94 Oxygen Delivery Method Room Air Room Air Room Air Positive well nourished and well developed General Appearance ED: well developed and NAD HEENT Reports moist mucous membranes normocephalic and atraumatic Eyes PERRL, EOMs intact bilaterally and conjunctivae normal General Eye ED: Yes normal appearance of both eyes Neck no lymphadenopathy and supple General: Negative for tenderness Chest Wall Chest: Negative for tenderness Resp normal respiratory effort and normal air movement Effort and Inspection: symmetric chest movement; Negative for respiratory distress Cardio regular rate, regular rhythm and no murmurs Peripheral Pulses: pulses 2+ throughout GI normal to inspection, nondistended, normoactive bowel sounds and non-tender Palpation: Negative for guarding or rebound tenderness present Back/Spine no CVA tenderness and no thoracic nor lumbar tenderness Extremity normal to inspection General Extremety ED: Negative for edema or tenderness General Extremity: Negative for edema Neuro oriented x3 and no sensory deficits noted Sensorium / Orientation: awake and alert Psych Psych Narrative: Cooperative, flat affect, denies suicidal homicidal ideations. Admits to auditory hallucinations. Skin no rashes or lesions noted and no wounds <Dr. Yokasta Regalado, DO - Last Filed: 04/10/22 06:45> Physical Exam Const Vital Signs: 04/09/22 20:00 04/09/22 23:00 04/10/22 00:00 Temperature Temperature Source Pulse Rate Respiratory Rate 16 15 15 Blood Pressure Blood Pressure Mean Pulse Ox Oxygen Delivery Method Room Air Room Air Room Air 04/10/22 02:00 04/10/22 04:00 04/10/22 06:00 Temperature 98.9 F Temperature Source Temporal Pulse Rate 114 H Respiratory Rate 16 15 16 Blood Pressure 116/76 Blood Pressure Mean 89 Pulse Ox 94 Oxygen Delivery Method Room Air Room Air Room Air MDM <Dr. Mac Carlos, DO - Last Filed: 04/10/22 16:07> [facility] MDM Narrative Medical decision making narrative: Patient cooperative, history depression and schizophrenia. Has been increasing aggression per report requiring sedating medications yesterday. Medical clearance labs ordered for evaluation for medical clearance with plan evaluation by case management. Labs stable. Tox negative. Patient medically cleared, patient evaluate by case management who agrees with plan admission to a psychiatric facility. 23:30: Awaiting placement at this time. awaiting placement at this time reviewing counseling center note did note that patient had suicidal ideations with a plan for cutting her wrists. She has had increasing depression. She has had suicide attempts in the past. They recommended inpatient admission for the patient. [place] [facility] slip was filled out for the patient awaiting placement. Lab Data Attestation: I reviewed the patient's lab results. Labs: Laboratory Results - last 24 hr 04/09/22 04/09/22 04/09/22 16:04 16:10 16:10 WBC 9.3 RBC 4.91 Hgb 14.3 Hct 43.4 MCV 88.4 MCH 29.1 MCHC 32.9 RDW Std Deviation 45.0 H RDW Coeff of Tyesha 14.0 Plt Count 197 MPV 10.2 Immature Gran % (Auto) 0.200 Neut % (Auto) 65.3 Lymph % (Auto) 27.0 Willacy % (Auto) 6.9 Eos % (Auto) 0.1 Baso % (Auto) 0.5 Absolute Neuts (auto) 6.1 Absolute Lymphs (auto) 2.51 Nucleated RBC % 0 Differential Comment SCANNED Sodium 138 Potassium 3.9 Chloride 105 Carbon Dioxide 25.0 Anion Gap 8 BUN 19 H Creatinine 0.79 Estim Creat Clear Calc 58.57 Est GFR (MDRD) Af Amer 96 Est GFR (MDRD) Non-Af 79 BUN/Creatinine Ratio 24.0 H Glucose 151 H Calcium 9.2 Urine Opiates Screen NEGATIVE Urine Methadone Screen NEGATIVE Ur Barbiturates Screen NEGATIVE Ur Phencyclidine Scrn NEGATIVE Ur Amphetamines Screen NEGATIVE MDMA (Ecstasy) Screen NEGATIVE U Benzodiazepines Scrn NEGATIVE Urine Cocaine Screen NEGATIVE U Cannabinoids Screen NEGATIVE Ur Drug Screen Comment Ethyl Alcohol POC Glucose 04/09/22 04/10/22 16:10 06:49 WBC RBC Hgb Hct MCV MCH MCHC RDW Std Deviation RDW Coeff of Tyesha Plt Count MPV Immature Gran % (Auto) Neut % (Auto) Lymph % (Auto) Willacy % (Auto) Eos % (Auto) Baso % (Auto) Absolute Neuts (auto) Absolute Lymphs (auto) Nucleated RBC % Differential Comment Sodium Potassium Chloride Carbon Dioxide Anion Gap BUN Creatinine Estim Creat Clear Calc Est GFR (MDRD) Af Amer Est GFR (MDRD) Non-Af BUN/Creatinine Ratio Glucose Calcium Urine Opiates Screen Urine Methadone Screen Ur Barbiturates Screen Ur Phencyclidine Scrn Ur Amphetamines Screen MDMA (Ecstasy) Screen U Benzodiazepines Scrn Urine Cocaine Screen U Cannabinoids Screen Ur Drug Screen Comment Ethyl Alcohol 9.0 POC Glucose 152 H <Dr. Yokasta Regalado, DO - Last Filed: 04/10/22 06:45> MDM MDM Narrative Medical decision making narrative: Patient cooperative, history depression and schizophrenia. Has been increasing aggression per report requiring sedating medications yesterday. Medical clearance labs ordered for evaluation for medical clearance with plan evaluation by case management. Labs stable. Tox negative. Patient medically cleared, patient evaluate by case management who agrees with plan admission to a psychiatric facility. 23:30: Awaiting placement at this time. awaiting placement at this time reviewing counseling center note did note that patient had suicidal ideations with a plan for cutting her wrists. She has had increasing depression. She has had suicide attempts in the past. They recommended inpatient admission for the patient. [place] slip was filled out for the patient awaiting placement. Patient signed out to me pending placement. [place] slip was already filed. Patient accepted by Dr. Kessler at [facility]. Lab Data Labs: Laboratory Results - last 24 hr 04/09/22 04/09/22 04/09/22 16:04 16:10 16:10 WBC 9.3 RBC 4.91 Hgb 14.3 Hct 43.4 MCV 88.4 MCH 29.1 MCHC 32.9 RDW Std Deviation 45.0 H RDW Coeff of Tyesha 14.0 Plt Count 197 MPV 10.2 Immature Gran % (Auto) 0.200 Neut % (Auto) 65.3 Lymph % (Auto) 27.0 Willacy % (Auto) 6.9 Eos % (Auto) 0.1 Baso % (Auto) 0.5 Absolute Neuts (auto) 6.1 Absolute Lymphs (auto) 2.51 Nucleated RBC % 0 Differential Comment SCANNED Sodium 138 Potassium 3.9 Chloride 105 Carbon Dioxide 25.0 Anion Gap 8 BUN 19 H Creatinine 0.79 Estim Creat Clear Calc 58.57 Est GFR (MDRD) Af Amer 96 Est GFR (MDRD) Non-Af 79 BUN/Creatinine Ratio 24.0 H Glucose 151 H Calcium 9.2 Urine Opiates Screen NEGATIVE Urine Methadone Screen NEGATIVE Ur Barbiturates Screen NEGATIVE Ur Phencyclidine Scrn NEGATIVE Ur Amphetamines Screen NEGATIVE MDMA (Ecstasy) Screen NEGATIVE U Benzodiazepines Scrn NEGATIVE Urine Cocaine Screen NEGATIVE U Cannabinoids Screen NEGATIVE Ur Drug Screen Comment Ethyl Alcohol POC Glucose 04/09/22 04/10/22 16:10 06:49 WBC RBC Hgb Hct MCV MCH MCHC RDW Std Deviation RDW Coeff of Tyesha Plt Count MPV Immature Gran % (Auto) Neut % (Auto) Lymph % (Auto) Willacy % (Auto) Eos % (Auto) Baso % (Auto) Absolute Neuts (auto) Absolute Lymphs (auto) Nucleated RBC % Differential Comment Sodium Potassium Chloride Carbon Dioxide Anion Gap BUN Creatinine Estim Creat Clear Calc Est GFR (MDRD) Af Amer Est GFR (MDRD) Non-Af BUN/Creatinine Ratio Glucose Calcium Urine Opiates Screen Urine Methadone Screen Ur Barbiturates Screen Ur Phencyclidine Scrn Ur Amphetamines Screen MDMA (Ecstasy) Screen U Benzodiazepines Scrn Urine Cocaine Screen U Cannabinoids Screen Ur Drug Screen Comment Ethyl Alcohol 9.0 POC Glucose 152 H Discharge Plan Triage Chief Complaint: Mental Health ED Provider: Mac Carlos Dx/Rx/DC Orders Clinical Impression: Schizophrenia, Depression, Suicidal ideations Prescriptions: No Action glipizide 5 MG tablet 5 mg PO BIDAC Label Comments: DIABETES cholecalciferol (vitamin D3) [Vitamin D3] 1,000 UNIT capsule 1,000 unit PO DAILY Fish Oil 1 EACH capsule 1 ea PO DAILY aspirin 325 MG tablet,delayed release (DR/EC) 325 mg PO DAILY@1600 lubiprostone [Amitiza] 24 MCG capsule 24 mcg PO BID@0800,1600 pramipexole 0.5 MG tablet 0.25 mg PO QHS omeprazole 20 MG capsule,delayed release(DR/EC) 20 mg PO DAILY potassium chloride 20 MEQ tablet 20 meq PO DAILY risperidone 1 MG tablet 1 mg PO QHS ferrous gluconate 324 MG tablet 324 mg PO BID@0800,1600 metoprolol succinate 25 mg Tablet Extended Release 24 Hr 25 mg PO QHS Jardiance 10 mg Tablet 10 mg PO DAILY metformin 500 mg tablet 1,000 mg PO BID trazodone 50 mg Tablet 50 mg PO QHS Metamucil Packet 1 packet PO QHS pravastatin 20 mg tablet 20 mg PO QHS furosemide 20 mg tablet 20 mg PO DAILY Lantus Solostar U-100 Insulin 100 unit/mL (3 mL) insulin pen 48 unit SUBCUT DAILY@1600 desvenlafaxine succinate 50 mg tablet extended release 24 hr 50 mg PO DAILY Breo Ellipta 100-25 mcg/dose blister with device 1 inh INHALATION DAILY Incruse Ellipta 62.5 mcg/actuation blister with device 1 inh INHALATION DAILY clozapine 100 MG tablet 300 mg PO QHS Label Comments: MENTAL HEALTH clozapine 100 MG tablet 100 mg PO DAILY@0800 Label Comments: 0300 pm Primary Care Provider: Boris Vance Referrals: Boris Vance MD [Primary Care Provider] - Disposition Disposition: Psychiatric Hospital or Unit Discharge Location: Other Acute Care Hospital Discharge Date/Time: 04/10/22 07:31
--- NOTE | 2022-04-09 16:03 | ED.RN ---
PT. REPORT THAT THEY HAVE BEEN OVER INDULGING ON WATER AND HAVE BEEN VERBALLY AGGRESSIVE TOWARDS OTHER CLIENTS. PT. HAS AN INJECTION OF RISPERDAL YESTERDAY OF 50MG.
--- NOTE | 2022-04-09 16:11 | ED.RN ---
DR. RAINEY STATES PT. DOES NOT NEED SITTER.
[2022-04-09 16:31] LABS: Absolute Lymphocyte Count 2.51 X10^3/uL (0.83-4.51); Absolute Neutrophil Count 6.1 X10^3/uL (2.0-7.7); Basophil# 0.05 X10^3/uL; Basophil% 0.5 % (0-1); Eosinophil# 0.01 X10^3/uL; Eosinophils% 0.1 % (0-5); Hematocrit 43.4 % (37-47); Hemoglobin 14.3 g/dL (12.0-15.0); Lymphocyte # 2.51 X10^3/ul (0.83-4.51); Mean Corp Hgb Conc 32.9 g/dL (32-36); Mean Corpuscular Hgb 29.1 pg (27.0-32.0); Mean Corpuscular Volume 88.4 fL (81-99); Mean Platelet Vol. 10.2 fl (6.2-12.0); Monocyte# 0.64 X10^3/uL; Monocyte% 6.9 % (0-10); NRBC Flagged by Analyzer 0 % (0-5); Neutrophil # 6.06 X10^3/uL (2.7-7.7); Neutrophil % 65.3 % (47-70); POSITIVE MORPHOLOGY YES; Platelet Count 197 K/mm3 (150-450); Red Blood Count 4.91 M/mm3 (4.2-5.4); White Blood Count 9.3 K/mm3 (4.4-11.0)
[2022-04-09 16:32] LABS: Amphetamine Urine VISTA NEGATIVE (<1000 ng/mL); Barbiturate Urine VISTA NEGATIVE (< 200 ng/mL); Benzodiazepine Urine VISTA NEGATIVE (< 200 ng/mL); Cocaine Urine VISTA NEGATIVE (< 300 ng/mL); Ecstacy Urine VISTA NEGATIVE (< 500 ng/mL); Methadone Urine VISTA NEGATIVE (< 300 ng/mL); PCP Urine VISTA NEGATIVE (< 25 ng/mL); THC Urine VISTA NEGATIVE (< 50 ng/mL); Vista UDS pH Range 5
[2022-04-09 16:34] LABS: Differential Indicated SCAN CRITERIA MET
[2022-04-09 16:43] LABS: Anion Gap 8 (5-15); BUN 19 mg/dL (7-18); Calcium,Total 9.2 mg/dL (8.5-10.1); Chloride 105 mmol/L (98-107); Creatinine, Serum 0.79 mg/dL (0.55-1.02); EST Glomerular Filtration Rate 79 mL/min (>60); Est Glom Filt Rate - Afr Amer 96 mL/min (>60); Estimated Creatinine Clearance 58.57 ml/min; Glucose 151 mg/dL (74-106); Potassium 3.9 mmol/L (3.5-5.1); Sodium Level 138 mmol/L (136-145)
[2022-04-09 17:23] LABS: Differential Comment SCANNED
--- NOTE | 2022-04-09 18:19 | CM.ED ---
Social Work Note SW faxed clinicals to [facility]. JONNY placed a call to [facility] and spoke with Melisa and updated her that clinicals were faxed and they will need to work on placement for pt. Plan: Crisis to work on psych placement for pt Maddi Tony INFECTIOUS DISEASE TECHNICIAN, SENIOR SALES OPERATIONS ANALYST
--- NOTE | 2022-04-09 19:43 | CM.ED ---
Social work Note SW received call from pt's Legal Guardian Melony Willard requesting update. SW updated Melony that pt is still at [facility] ED and [facility] is working on Psych Placement for her. Melony states understanding. Maddi Tony INTERNATIONAL LOGISTICS COORDINATOR, HOT REPAIRMAN
[2022-04-09 20:00] VITALS: RESP 16
--- NOTE | 2022-04-09 20:55 | CM.ED ---
Social Work Note Telephone call to [facility]. Per Melisa, pt is being referred to [facility]. Pt has been accepted to [facility] but cannot admit till tomorrow. [facility] to continue to work on psych placement for pt. order department supervisor updated. Maddi Tony SENIOR RD ENGINEER, TIME BROKER
[2022-04-09 23:00] VITALS: RESP 15
[2022-04-10] VITALS: RESP 15
[2022-04-10 02:00] VITALS: RESP 16
[2022-04-10 04:00] VITALS: RESP 15
[2022-04-10 06:00] VITALS: BP 116/76; PULSE 114; RESP 16; TEMP 37.2; O2SAT 94
[2022-04-10 06:56] LABS: Bedside Glucose 152 mg/dL (74-106)
--- NOTE | 2022-04-10 07:00 | ED.RN ---
ATTEMTPED TO CALL NURSE REPORT AND WAS ASKED TO CALL BACK 30 MINUTES NURSES ARE IN SHIFT REPORT
--- NOTE | 2022-06-05 15:23 | CM.ED ---
Social Work Note JONNY received call from Maddie at [facility] stating pt will be coming to [facility] ED. Maddie states that pt is a resident of their Retirement and pt is having suicidal, homicidal, delusions and recommendation is inpatient psychiatric hospitalization. Maddie states that she has completed the assessment and she will type it up and then send it to this worker. Maddie states that pt is stating that she has a computer chip her stomach and severe left side kidney pain. Maddie states that pt is hearing voices to harm other people and state that she has thought about taking a butter knife to stab people in the head. Maddie states that pt is also having olfactory hallucinations. Mdadie states that pt is smelling urine. Maddie states that pt is also drinking excessive amount of water. Maddie states that once pt is medically cleared, then this worker can fax over the clinicals to crisis and they can work on psych placement for pt. JONNY updated Triage. Maddi Tony WORKFORCE ANALYST, GYMNASIUM TEACHER
== END 2022-04-10 07:31 ==
PROVIDERS: Emergency Provider Emergency Medicine; PCP Family Medicine; Visit Provider Emergency Medicine
DX: F20.9 Schizophrenia, unspecified (principal); F32.A Depression, unspecified; R45.851 Suicidal ideations; Z79.899 Other long term (current) drug therapy; Z87.891 Personal history of nicotine dependence
CPT/HCPCS: 80048; 80307; 82077; 82962; 85025; 87811; 99285

== ENCOUNTER 2022-04-17 09:04 | Outpatient (RCR) | payer MEDICARE, MEDICAID, SELFPAY ==
[2022-04-12 07:02] VITALS: BMI 36.6
[2022-04-17 10:04] LABS: Absolute Lymphocyte Count 2.37 X10^3/uL (0.83-4.51); Absolute Neutrophil Count 7.5 X10^3/uL (2.0-7.7); Basophil# 0.03 X10^3/uL; Basophil% 0.3 % (0-1); Hematocrit 44.2 % (37-47); Hemoglobin 14.5 g/dL (12.0-15.0); Lymphocyte # 2.37 X10^3/ul (0.83-4.51); Lymphocyte % 22.6 % (19-41); Mean Corp Hgb Conc 32.8 g/dL (32-36); Mean Corpuscular Volume 88.4 fL (81-99); Mean Platelet Vol. 11.6 fl (6.2-12.0); Monocyte# 0.56 X10^3/uL; Monocyte% 5.3 % (0-10); NRBC Flagged by Analyzer 0 % (0-5); Neutrophil # 7.47 X10^3/uL (2.7-7.7); Neutrophil % 71.4 % (47-70); Platelet Count 166 K/mm3 (150-450); RBC Distribution Width CV 13.5 % (11.6-14.6); RBC Distribution Width SD 43.8 fl (35.1-43.9); White Blood Count 10.5 K/mm3 (4.4-11.0)
== END 2022-05-12 02:23 | disposition home or self-care (01) ==
LOC: LAB 09:04
PROVIDERS: Family Provider Family Medicine; PCP Family Medicine; Referring Provider Psychiatry & Neurology Psychiatry; Visit Provider Psychiatry & Neurology Psychiatry
DX: Z79.899 Other long term (current) drug therapy (principal)
CPT/HCPCS: 36415; 85025

== ENCOUNTER → 2022-04-18 | Outpatient (CLI) | payer MEDICARE, MEDICAID, SELFPAY ==
--- NOTE | 2022-04-18 13:24 | CT_ITS ---
STUDY: LOW DOSE CT LUNG CANCER SCREENING REASON FOR EXAM: Female, 56 years old. History of 30 pack year smoking. Former smoker. RADIATION DOSAGE (If Supplied By Facility): CTDIvol = ( 3.18 ) mGy, DLP = ( 101.65 ) mGycm TECHNIQUE: No contrast was administered. Low dose technique was utilized (average mAS-38 and kVp 120). 1.25 mm axial source images with a slice interval of 1.25-mm were reconstructed in lung windows. 2.5 mm axial source images with a slice interval of 2.5-mm were reconstructed in lung windows. 5.0 mm axial source images with a slice interval of 5.0-mm were reconstructed in soft tissue windows. COMPARISON: Comparison is made with prior study dated 04/10/2021. NODULES: No suspicious nodules are seen. Emphysema: No significant emphysematous changes are present. Endobronchial lesion: Aorta: Atherosclerotic plaque formation of the aortic arch. CORONARY ARTERIES: Coronary artery calcification is seen. Heart: Unremarkable Pulmonary artery: Unremarkable Mediastinal nodes: Small benign-appearing mediastinal lymph nodes. Other chest and abdominal findings: CT/Low Dose CT Lung Screening IMPRESSION: Lung-RADS category 2 - Continue annual screening with LDCT in 12 months. IMPORTANT NOTES FOR USE: ACR Lung-RADS Version 1.1 Assessment Categories Release Date: 2018 Category: Coded 0-4 bases on nodule(s) with highest degree of suspicion. Negative screen is defined as categories 1 and 2; a positive screen is defined as categories 3 and 4. Category 3 and 4A nodules that are unchanged on interval CT should be coded as category 2, and individuals returned to screening in 12 months. Category 4X: Category 3 or 4 nodules with additional imaging findings that increase the suspicion of lung cancer, such as spiculation, GGN that doubles in size in 1 year, enlarged lymph notes, etc. Category Modifiers: S (significant finding unrelated to lung cancer) Electronically Signed: Trenton Sanchez MD at 15:00 EDT ,
== END | disposition home or self-care (01) ==
LOC: CT 13:07
PROVIDERS: PCP Family Medicine; Referring Provider Internal Medicine Pulmonary Disease; Visit Provider Internal Medicine Pulmonary Disease
DX: Z87.891 Personal history of nicotine dependence (principal)
CPT/HCPCS: 71271

== ENCOUNTER 2022-05-17 10:34 | Outpatient (RCR) | payer MEDICARE, MEDICAID, SELFPAY ==
[2022-05-12 02:24] VITALS: BMI 36.6
[2022-05-17 11:17] LABS: Absolute Lymphocyte Count 2.96 X10^3/uL (0.83-4.51); Absolute Neutrophil Count 5.6 X10^3/uL (2.0-7.7); Basophil# 0.05 X10^3/uL; Basophil% 0.5 % (0-1); Hematocrit 43.7 % (37-47); Hemoglobin 14.1 g/dL (12.0-15.0); Lymphocyte # 2.96 X10^3/ul (0.83-4.51); Lymphocyte % 31.5 % (19-41); Mean Corp Hgb Conc 32.3 g/dL (32-36); Mean Corpuscular Hgb 29.3 pg (27.0-32.0); Mean Corpuscular Volume 90.7 fL (81-99); Mean Platelet Vol. 10.6 fl (6.2-12.0); Monocyte# 0.73 X10^3/uL; Monocyte% 7.8 % (0-10); NRBC Flagged by Analyzer 0 % (0-5); Neutrophil # 5.62 X10^3/uL (2.7-7.7); Neutrophil % 59.7 % (47-70); POSITIVE MORPHOLOGY YES; Platelet Count 189 K/mm3 (150-450); RBC Distribution Width CV 13.9 % (11.6-14.6); RBC Distribution Width SD 45.5 fl (35.1-43.9); Red Blood Count 4.82 M/mm3 (4.2-5.4); White Blood Count 9.4 K/mm3 (4.4-11.0)
[2022-05-17 11:31] LABS: Differential Indicated SCAN CRITERIA MET
[2022-05-17 12:18] LABS: Reactive Lymphocyte RARE
== END 2022-05-17 18:00 | disposition home or self-care (01) ==
LOC: LAB 10:34
PROVIDERS: Family Provider Family Medicine; PCP Family Medicine; Referring Provider Psychiatry & Neurology Psychiatry; Visit Provider Psychiatry & Neurology Psychiatry
DX: Z79.899 Other long term (current) drug therapy (principal)
CPT/HCPCS: 36415; 85025

== ENCOUNTER 2022-06-05 15:47 | Emergency (ER) | payer MEDICARE, MEDICAID, SELFPAY ==
[2022-06-05 15:48] VITALS: BP 137/81; PULSE 118; RESP 14; TEMP 36.3; O2SAT 97; BMI 34.8
--- NOTE | 2022-06-05 15:56 | CM.ED ---
Social Work Note JONNY received call from Maddie at [facility] stating pt will be coming to [facility] ED. Maddie states that pt is a resident of their Shelter and pt is having suicidal, homicidal, delusions and recommendation is inpatient psychiatric hospitalization. Maddie states that she has completed the assessment and she will type it up and then send it to this worker. Maddie states that pt is stating that she has a computer chip her stomach and severe left side kidney pain. Maddie states that pt is hearing voices to harm other people and state that she has thought about taking a butter knife to stab people in the head. Maddie states that pt is also having olfactory hallucinations. Maddie states that pt is smelling urine. Maddie states that pt is also drinking excessive amount of water. Maddie states that once pt is medically cleared, then this worker can fax over the clinicals to crisis and they can work on psych placement for pt. JONNY updated Triage. Maddi Tony POLICEWOMAN, DAIRY TRUCK DRIVER
--- NOTE | 2022-06-05 16:09 | EKG12_ITS ---
Test Reason : MEDICAL CLEARANCE Blood Pressure : / mmHG Vent. Rate : 106 BPM Atrial Rate : 106 BPM P-R Int : 162 ms QRS Dur : 072 ms QT Int : 312 ms P-R-T Axes : 045 -09 034 degrees QTc Int : 414 ms Sinus tachycardia Low voltage QRS Possible Inferior infarct , age undetermined Cannot rule out Anterior infarct , age undetermined Abnormal ECG Confirmed by TAMMY SANDERS, GLORIA ([id number]), editor newspaper CRISTAL OTT ([id number]) on 06/06/2022 1:28:57 PM Referred By: KANDY Confirmed By:EMILIO MUNOZ MD
--- NOTE | 2022-06-05 16:10 | EDS_ITS ---
HPI HPI - Psych History of Present Illness Chief Complaint: Mental Health Informant: patient Narrative Narrative: Patient presents after making suicidal and homicidal statements. It sounds like he is may have been made to a counselor. She does have a history of schizophrenia. She states for years there has been a microchip in her chest. She does not know what to do with it. I cannot get that it tells her anything. But today evidently to women got her upset. And she wanted to go suicide on them. Only positive review of system that I can get is chronic soft stools and some frequent urination. PFSH PFSH Home Medications cholecalciferol (vitamin D3) 25 mcg (1,000 unit) capsule (Vitamin D3) 1,000 unit PO DAILY SUPPLEMENT 10/17/17 [History Last Taken 07/30/21] aspirin 325 mg tablet,delayed release 325 mg PO DAILY@1600 heart health 07/22/18 [History Last Taken 07/30/21] lubiprostone 24 mcg capsule (Amitiza) 24 mcg PO BID@0800,1600 bowels 07/22/18 [History Last Taken 07/30/21] omeprazole 20 mg capsule,delayed release 20 mg PO DAILY indigestion 10/31/19 [History Last Taken 07/30/21] potassium chloride 20 mEq tablet,extended release(part/cryst) 20 meq PO DAILY supplement 11/16/19 [History Last Taken 07/30/21] risperidone 1 mg tablet 2 mg PO QHS mood 11/16/19 [History Last Taken 07/29/21] clozapine 100 mg tablet 25 mg PO DAILY@0800 SCHIZOPHRENIA 07/30/21 [History Last Taken 07/30/21] clozapine 100 mg tablet 500 mg PO QHS SCHIZOPHRENIA 07/30/21 [History Last Taken 07/29/21] empagliflozin 10 mg tablet (Jardiance) 10 mg PO DAILY 07/30/21 [History Last Taken 07/30/21] furosemide 20 mg tablet 20 mg PO DAILY FLUID 07/30/21 [History Last Taken 07/30/21] insulin glargine 100 unit/mL (3 mL) subcutaneous pen (Lantus Solostar U-100 Insulin) 40 unit subcut DAILY@1600 DM 07/30/21 [History Last Taken 07/30/21] metoprolol succinate 25 mg tablet,extended release 24 hr 25 mg PO QHS 07/30/21 [History Last Taken 07/29/21] psyllium 1 packet PO QHS SUPPLEMENT 07/30/21 [History Last Taken 07/29/21] clonazepam 0.5 mg tablet 0.5 mg PO TID 06/05/22 [History Last Taken Unknown] ferrous sulfate 325 mg (65 mg iron) tablet (Feosol) 325 mg PO BID 06/05/22 [History Last Taken Unknown] glipizide 5 mg tablet 5 mg PO DAILY 06/05/22 [History Last Taken Unknown] metformin 500 mg tablet 500 mg PO BID 06/05/22 [History Last Taken Unknown] pramipexole 0.5 mg tablet 0.5 mg PO QHS 06/05/22 [History Last Taken Unknown] pravastatin 20 mg tablet 20 mg PO DAILY 06/05/22 [History Last Taken Unknown] Allergy/AdvReac Type Severity Reaction Status Date / Time No Known Allergies Allergy Verified 06/05/22 15:48 Social History Smoking Status: Former smoker substance use type: does not use ROS ROS ED Constitutional Constitutional ED: Denies chills or fever(s) Eyes Eyes: Denies change in vision ENT ENT ED: Denies rhinorrhea or sore throat Cardiovascular Cardiovascular: Denies chest pain or palpitations Respiratory/Chest Respiratory/Chest: Denies cough or dyspnea Gastrointestinal Gastrointestinal: Reports diarrhea; Denies nausea or vomiting Genitourinary Genitourinary ED: Reports urinary frequency; Denies dysuria or hematuria Musculoskeletal Musculoskeletal: Denies arthralgias or myalgias Integumentary Denies rash Neurologic Neurologic: Denies headache(s) Psychiatric Psychiatric: Reports suicidal thoughts and other Details: See history of present illness. Endocrine Endocrinology: Denies polydipsia or polyuria Hematologic/Lymphatic Hematologic/Lymphatic: Denies easy bleeding or easy bruising Allergic/Immunologic Allergic/Immunologic ED: Denies urticaria EXAM Physical Exam Const Vital Signs: 06/05/22 15:48 06/05/22 21:07 Temperature 97.4 F L 96.7 F L Temperature Source Temporal Temporal Pulse Rate 118 H 81 Respiratory Rate 14 16 Blood Pressure 137/81 H 106/70 Blood Pressure Mean 99 82 Pulse Ox 97 99 Oxygen Delivery Method Room Air Room Air Positive well nourished and well developed General Appearance ED: well developed; Negative for pallor HEENT Reports moist mucous membranes atraumatic Eyes General Eye ED: Negative for scleral icterus Neck no lymphadenopathy and no JVD Resp normal respiratory effort and clear to auscultation bilaterally Cardio no murmurs Rate: regular rate Rhythm: regular rhythm GI non-tender, non-distended and no masses Back/Spine no CVA tenderness Extremity normal to inspection Neuro oriented x3 Psych Psych Narrative: Patient is actually nice and cooperative here. She does admit to thoughts of hurting herself and the other 2 people though. She does have a fixed delusion of a microchip in her chest. But evidently this is longstanding and not new or different. She denies that it hurts. She just knows that its there and that bothers her. Skin General Skin Exam: Negative for jaundice or pallor MDM MDM MDM Narrative Medical decision making narrative: Patient's labs show normal CBC. Urine is unremarkable. Talk screen is negative. Alcohol is negative. Glucose is mildly elevated at 206 but rest of electrolytes look normal. Minimal elevations of ALT AST and alk phos. But she has no right upper quadrant pain. Patient's sodium is normal. 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 I also checked a troponin that was unmeasurable. She was complaining of feeling a microchip in her chest and I wanted to make sure that this was not her way of trying to say pain although she denies pain. I believe the patient is medically cleared for psychiatric evaluation and admission. Crisis already saw her. Because of the threats and homicidal thoughts to people in the senior living they do feel she needs to be admitted. We are waiting on acceptance. Lab Data Attestation: I reviewed the patient's lab results. Labs: Laboratory Results - last 24 hr 06/05/22 06/05/22 06/05/22 16:20 16:20 16:30 WBC 8.9 RBC 4.70 Hgb 14.1 Hct 42.1 MCV 89.6 MCH 30.0 MCHC 33.5 RDW Std Deviation 46.8 H RDW Coeff of Tyesha 14.2 Plt Count 220 MPV 9.7 Immature Gran % (Auto) 0.500 Neut % (Auto) 61.0 Lymph % (Auto) 30.9 [place] % (Auto) 7.0 Eos % (Auto) 0.1 Baso % (Auto) 0.5 Absolute Neuts (auto) 5.4 Absolute Lymphs (auto) 2.74 Nucleated RBC % 0 Sodium Potassium Chloride Carbon Dioxide Anion Gap BUN Creatinine Estim Creat Clear Calc Est GFR (MDRD) Af Amer Est GFR (MDRD) Non-Af BUN/Creatinine Ratio Glucose Calcium Total Bilirubin AST ALT Alkaline Phosphatase Troponin I High Sens Total Protein Albumin Globulin Albumin/Globulin Ratio Urine Color Straw Urine Clarity Clear Urine pH 6.0 Ur Specific [place] 1.010 Urine Protein Negative Urine Glucose (UA) 1000 H Urine Ketones Negative Urine Occult Blood Negative Urine Nitrite Negative Urine Bilirubin Negative Urine Urobilinogen Normal Ur Leukocyte Esterase Negative Urine RBC 0 SEEN Urine WBC 0 SEEN Ur Squamous Epith Cells 0 SEEN Urine Bacteria 0 SEEN Urine Mucus 0 SEEN Urine Opiates Screen NEGATIVE Urine Methadone Screen NEGATIVE Ur Barbiturates Screen NEGATIVE Ur Phencyclidine Scrn NEGATIVE Ur Amphetamines Screen NEGATIVE MDMA (Ecstasy) Screen NEGATIVE U Benzodiazepines Scrn NEGATIVE Urine Cocaine Screen NEGATIVE U Cannabinoids Screen NEGATIVE Ur Drug Screen Comment Ethyl Alcohol 06/05/22 06/05/22 16:30 16:30 WBC RBC Hgb Hct MCV MCH MCHC RDW Std Deviation RDW Coeff of Tyesha Plt Count MPV Immature Gran % (Auto) Neut % (Auto) Lymph % (Auto) [place] % (Auto) Eos % (Auto) Baso % (Auto) Absolute Neuts (auto) Absolute Lymphs (auto) Nucleated RBC % Sodium 139 Potassium 4.3 Chloride 106 Carbon Dioxide 25.0 Anion Gap 8 BUN 16 Creatinine 0.72 Estim Creat Clear Calc 64.27 Est GFR (MDRD) Af Amer 107 Est GFR (MDRD) Non-Af 89 BUN/Creatinine Ratio 22.3 H Glucose 206 H Calcium 9.2 Total Bilirubin 0.20 AST 52 H ALT 68 H Alkaline Phosphatase 162 H Troponin I High Sens < 3 L Total Protein 7.6 Albumin 3.7 Globulin 3.9 Albumin/Globulin Ratio 0.9 Urine Color Urine Clarity Urine pH Ur Specific [place] Urine Protein Urine Glucose (UA) Urine Ketones Urine Occult Blood Urine Nitrite Urine Bilirubin Urine Urobilinogen Ur Leukocyte Esterase Urine RBC Urine WBC Ur Squamous Epith Cells Urine Bacteria Urine Mucus Urine Opiates Screen Urine Methadone Screen Ur Barbiturates Screen Ur Phencyclidine Scrn Ur Amphetamines Screen MDMA (Ecstasy) Screen U Benzodiazepines Scrn Urine Cocaine Screen U Cannabinoids Screen Ur Drug Screen Comment Ethyl Alcohol < 3.0 Discharge Plan Triage Chief Complaint: Mental Health ED Provider: Steven Christopher Dx/Rx/DC Orders Clinical Impression: Homicidal thoughts, Suicide ideation, Acute exacerbation of chronic schizophrenia Prescriptions: No Action cholecalciferol (vitamin D3) [Vitamin D3] 1,000 UNIT capsule 1,000 unit PO DAILY aspirin 325 MG tablet,delayed release (DR/EC) 325 mg PO DAILY@1600 lubiprostone [Amitiza] 24 MCG capsule 24 mcg PO BID@0800,1600 omeprazole 20 MG capsule,delayed release(DR/EC) 20 mg PO DAILY potassium chloride 20 MEQ tablet 20 meq PO DAILY risperidone 1 MG tablet 2 mg PO QHS metoprolol succinate 25 mg Tablet Extended Release 24 Hr 25 mg PO QHS Jardiance 10 mg Tablet 10 mg PO DAILY Metamucil Packet 1 packet PO QHS furosemide 20 mg tablet 20 mg PO DAILY insulin glargine [Lantus Solostar U-100 Insulin] 100 unit/mL (3 mL) insulin pen 40 unit SUBCUT DAILY@1600 clozapine 100 MG tablet 500 mg PO QHS Label Comments: MENTAL HEALTH clozapine 100 MG tablet 25 mg PO DAILY@0800 Label Comments: 0300 pm metformin 500 mg Tablet 500 mg PO BID clonazepam 0.5 mg Tablet 0.5 mg PO TID pramipexole 0.5 mg Tablet 0.5 mg PO QHS ferrous sulfate [Feosol] 325 mg (65 mg iron) Tablet 325 mg PO BID pravastatin [Pravachol] 20 mg Tablet 20 mg PO DAILY glipizide 5 mg Tablet 5 mg PO DAILY Primary Care Provider: Boris Vance Referrals: Boris Vance MD [Primary Care Provider] - Disposition Disposition: Psychiatric Hospital or Unit
[2022-06-05 16:25] LABS: Bacteria 0 SEEN /hpf (None Seen); Mucous, Urine 0 SEEN /hpf (<or=2+); Red Blood Cells-Urine 0 SEEN /hpf (0-5); Squamous Epithelial Cells - UA 0 SEEN /hpf (5-10); White Blood Cells 0 SEEN /hpf (0-5)
--- NOTE | 2022-06-05 16:35 | CM.ED ---
Social Work Note JONNY reviewed chart. Pt told ED Triage that she wanted to hurt two specific people because they made her mad. JONNY placed a call to [facility] and asked to speak to Maddie. Melisa states that Maddie states to take a message. JONNY asked Melisa to ask Maddie if pt mentioned the two specific people that she wants to hurt. Melisa states she will ask Maddie and then call this worker back. Melisa also states that Maddie states she has the assessment done she just needs to type it up and send it to this worker. JONNY to continue to follow. Maddi Tony DECK MOLDER, LEATHER BELT MAKER
[2022-06-05 16:40] LABS: Absolute Lymphocyte Count 2.74 X10^3/uL (0.83-4.51); Absolute Neutrophil Count 5.4 X10^3/uL (2.0-7.7); Basophil# 0.04 X10^3/uL; Basophil% 0.5 % (0-1); Eosinophil# 0.01 X10^3/uL; Eosinophils% 0.1 % (0-5); Hematocrit 42.1 % (37-47); Hemoglobin 14.1 g/dL (12.0-15.0); Lymphocyte # 2.74 X10^3/ul (0.83-4.51); Lymphocyte % 30.9 % (19-41); Mean Corp Hgb Conc 33.5 g/dL (32-36); Mean Corpuscular Volume 89.6 fL (81-99); Mean Platelet Vol. 9.7 fl (6.2-12.0); Monocyte# 0.62 X10^3/uL; NRBC Flagged by Analyzer 0 % (0-5); Neutrophil # 5.42 X10^3/uL (2.7-7.7); Platelet Count 220 K/mm3 (150-450); RBC Distribution Width CV 14.2 % (11.6-14.6); RBC Distribution Width SD 46.8 fl (35.1-43.9); White Blood Count 8.9 K/mm3 (4.4-11.0)
[2022-06-05 16:44] LABS: Color, Urine Straw (Yellow); Glucose, Dipstick 1000 mg/dl (Normal); Ketone-Dipstick Negative (Negative); Leukocyte Esterase-Dipstick Negative /ul (Negative); Nitrite-Dipstick Negative (Negative); Occult Blood-Urine Negative /ul (Negative); Protein-Dipstick Negative (Negative); Urine Bilirubin Dipstick Negative (Negative); Urine Clarity Clear (Clear); Urine Urobilinogen Normal (Normal)
--- NOTE | 2022-06-05 16:54 | CM.ED ---
Addendum entered by Maddi Tony 06/05/22 18:37: SW received assessment from [facility]. On assessment it states that Conchis Siegel, case sealer for [facility], operated by [facility] [employer] called crisis due to client reporting homicidal ideations with plan on two other residences [place] the [place] [facility]. Pt is having homicidal thoughts that have scared client. Maddie with crisis evaluated client who is orientated x4, knows that she is having homicidal ideations with plan towards two other ladies in the [place] [facility]. Client states that she would like to stab the ladies in the head with a butter knife. Client said that these thoughts realy scared her, and she does not want to do it and trying to control the urge. JONNY discussed with Mack CASTRO. [facility], [place] [facility] [place] [facility], and [place] [facility] [place] are all aware that pt is having homicidal ideations. Once pt is at inpatient psych unit, they will continue to address pt's homicidal ideations. JONNY faxed medical clinicals to [facility]. JONNY placed a call to Melisa at [facility] and informed her that Medical Clinicals have been faxed and informed Melisa that when this worker spoke with Maddie earlier she mentioned that [facility] could send out referrals. JONNY asked Melisa if [facility] is still able to send out referrals. Melisa states that they are working on a couple other ones and asked if this worker can send out referrals. JONNY informed Melisa that this worker can get a couple referrals out but informed Melisa that this worker leaves at 8:30pm tonight so it may bounce back to [facility] to continue to send referrals. Melisa states understanding. SW to fax referrals to inpatient psych. Addendum entered by Maddi Tony 06/05/22 17:15: JONNY in to speak with pt. JONNY informed pt that this worker is spoke with Maddie from [facility] who provided handoff. Pt states good, I am glad she told you so I don't have to. SW asked pt about her comments of wanting to hurt two specific people. SW asked pt who those people are. Pt states the two people in the [facility]. SW asked pt if they are residents in the [place] [facility] or if they are staff. Pt states that they are people that she lives with in the [facility]. Pt states that their names are Gunjan Murray and Yeny Murray. SW asked pt if she wants to hurt them or kill them and pt states she wants to hurt them. SW asked pt if she came up with a plan on how she would hurt them and pt states she does not have a plan. SW asked pt what they did that made her made. Pt states the way they talk. Pt states that she has not hurt anyone before. SW asked pt on a scale of 1-10 with one being the lowest and 10 being the highest, what she would rate her intent is to harm those two residents and pt states a three. Pt states that she does have history of hurting herself but states that she does not currently want to hurt herself. SW asked pt how [facility] can help her and pt states I want to get rid of this feeling. SW informed pt that this worker is working with Maddie to get pt to place to help pt. Pt states understanding. Plan: Crisis to work on inpatient psych placement Original Note: Social Work Note SW spoke with MD Christopher and updated him that [facility] has done the initial assessment and are recommending inpatient psych. MD Christopher agreeable. SW also updated MD Christopher that [facility] had told this worker that pt has been drinking exsessive amount of water and complained of left sided kidney pain. MD Christopher states pt has history of drinking water to flush out medications. SW to fax clinicals to [facility] so they can work on psych placement for pt. SW still waiting for call back from [facility] regarding pt's comment that she wants to hurt two specific people. Maddi Tony AMMUNITION ASSEMBLY II LABORER, INSPECTOR TECHNICIAN
[2022-06-05 16:55] LABS: ALB/GLOB Ratio 0.9 RATIO (0.9-2.4); AST(SGOT) 52 U/L (15-37); Alanine Aminotransfer ALT/SGPT 68 U/L (13-56); Albumin, Serum 3.7 g/dL (3.2-5.0); Alkaline Phosphatase 162 U/L (45-117); Anion Gap 8 (5-15); BUN 16 mg/dL (7-18); BUN/Creat Ratio 22.3 RATIO (10-20); Calcium,Total 9.2 mg/dL (8.5-10.1); Chloride 106 mmol/L (98-107); Creatinine, Serum 0.72 mg/dL (0.55-1.02); EST Glomerular Filtration Rate 89 mL/min (>60); Est Glom Filt Rate - Afr Amer 107 mL/min (>60); Estimated Creatinine Clearance 64.27 ml/min; Globulin 3.9 g/dL (2.2-4.2); Glucose 206 mg/dL (74-106); Potassium 4.3 mmol/L (3.5-5.1); Protein, Total 7.6 g/dL (6.4-8.2); Sodium Level 139 mmol/L (136-145); Troponin-I HS < 3 pg/mL (3.0-54.0)
[2022-06-05 16:55] LABS: Amphetamine Urine VISTA NEGATIVE (<1000 ng/mL); Barbiturate Urine VISTA NEGATIVE (< 200 ng/mL); Benzodiazepine Urine VISTA NEGATIVE (< 200 ng/mL); Cocaine Urine VISTA NEGATIVE (< 300 ng/mL); Ecstacy Urine VISTA NEGATIVE (< 500 ng/mL); Methadone Urine VISTA NEGATIVE (< 300 ng/mL); PCP Urine VISTA NEGATIVE (< 25 ng/mL); THC Urine VISTA NEGATIVE (< 50 ng/mL); Vista UDS pH Range 5
[2022-06-05 17:13] LABS: Alcohol, Blood (Medical)-Serum < 3.0 mg/dL
--- NOTE | 2022-06-05 19:32 | CM.ED ---
Social Work Note SW reviewed chart. Pt has been to [facility] and [facility] in the past. SW faxed referrals to [facility] and [facility]. Maddi Tony GOVERNMENT OPERATIONS CONSULTANT, RUBBER EXTRUSION MACHINE OPERATOR
[2022-06-05] MEDS: metFORMIN HCl 500 MG Tablet PO (20:28)
[2022-06-05] MEDS: clonazePAM 0.5 MG Tablet PO (20:28)
[2022-06-05] MEDS: RisperiDONE 1 MG Tablet 2 MG PO (20:29)
[2022-06-05] MEDS: Insulin Glargine-YFGN 100 UNIT/ML Pen 40 UNIT SC (20:29)
[2022-06-05] MEDS: Pramipexole Di-HCl 0.5 MG Tablet PO (20:29)
--- NOTE | 2022-06-05 20:34 | CM.ED ---
Social Work Note JONNY received call from Abhinav at [facility]. Abhinav with many questions regarding pt. JONNY answered questions. Abhinav states he will review referral and then call this worker back. JONNY explained that this worker is leaving for the night, provided number to nurses desk for Abhinav to call. One of the questions that Abhinav had was if pt was diagnosed with hypertension and diabetes. JONNY asked purchasing and claims supervisor who reviewed chart. Pt does have diagnosis of hypertension and diabetes. Of note, this worker did try and call pt's Legal Guardian Melony Willard earlier and no answer. Melony voicemail is full, JONNY unable to leave message. Maddi Tony ELECTRICAL RESEARCH ENGINEER, BATCH MIXER OPERATOR
--- NOTE | 2022-06-05 20:45 | CM.ED ---
Social Work Note JONNY placed a call to [facility] and updated staff that pt does have Hypertension and diabetes. Staff states they are still reviewing referral. JONNY placed a call to Melisa at [facility] and updated her that referrals have been [facility] to [facility] as pt has been there before. JONNY faxed clinicals to Crisis. JONNY attempted again to call pt's Legal Guardian to update, no answer, voicemail full, SW unable to leave message. JONNY laureano
--- NOTE | 2022-06-05 20:48 | CM.ED ---
Social Work Note Social Work Note SW placed a call to [facility] and updated staff that pt does have Hypertension and diabetes. Staff states they are still reviewing referral. SW placed a call to Melisa at [facility] and updated her that [facility]. SW faxed clinicals to Crisis. JONNY attempted again to call pt's Legal Guardian to update, no answer, voicemail full, SW unable to leave message. Plan: Inpatient psych Maddi Tony BOILER TESTER, RECYCLE DRIVER
[2022-06-05 21:07] VITALS: BP 106/70; PULSE 81; RESP 16; TEMP 35.9; O2SAT 99
--- NOTE | 2022-06-05 23:11 | ED.RN ---
Report called to [facility].
--- NOTE | 2022-06-05 23:13 | NURSING ---
Addendum entered by Velvet Doe 06/05/22 23:30: [facility] CALLED BACK SAID ETA IS NOW [id number] Original Note: CALLED [facility] [id number] ETA 2 HRS
[2022-06-06] VITALS (7 sets, daily range): BP systolic 111; BP diastolic 57; PULSE 86; RESP 16–18; O2SAT 95
--- NOTE | 2022-06-06 | ED.RN ---
ASSUMED CARE OF PT.
--- NOTE | 2022-06-06 10:37 | CM.ED ---
Social Work Note SW received call from Maddie at Crisis stating she needed to write a letter to [facility] stating pt could return at discharge and asked if [facility] has accepted pt. JONNY reviewed chart, pt discharged to [facility]. JONNY updated Maddie of this. Maddie states understanding. JONNY received message from Anthony at [facility] stating they have accepting information and to call them back. JONNY placed a call to [facility] and informed staff to disregard referral. Maddi Tony ABSORPTION OPERATOR, LPN
== END 2022-06-06 06:48 ==
PROVIDERS: Emergency Provider Emergency Medicine; PCP Family Medicine; Visit Provider Emergency Medicine
DX: R45.850 Homicidal ideations (principal); F20.9 Schizophrenia, unspecified; Z79.4 Long term (current) use of insulin; R45.851 Suicidal ideations; Z79.82 Long term (current) use of aspirin; Z79.84 Long term (current) use of oral hypoglycemic drugs; Z79.899 Other long term (current) drug therapy; Z87.891 Personal history of nicotine dependence
CPT/HCPCS: 36415; 80053; 80307; 81001; 82077; 84484; 85025; 87811; 93005; 99283

== ENCOUNTER 2022-06-19 14:49 | Outpatient (RCR) | payer MEDICARE, MEDICAID, SELFPAY ==
[2022-06-12 23:03] VITALS: BMI 36.6
[2022-06-19 15:15] LABS: Absolute Lymphocyte Count 2.95 X10^3/uL (0.83-4.51); Absolute Neutrophil Count 5.4 X10^3/uL (2.0-7.7); Basophil# 0.03 X10^3/uL; Basophil% 0.3 % (0-1); Eosinophil# 0.02 X10^3/uL; Eosinophils% 0.2 % (0-5); Hematocrit 42.2 % (37-47); Hemoglobin 13.8 g/dL (12.0-15.0); Lymphocyte # 2.95 X10^3/ul (0.83-4.51); Lymphocyte % 32.5 % (19-41); Mean Corp Hgb Conc 32.7 g/dL (32-36); Mean Corpuscular Hgb 29.4 pg (27.0-32.0); Monocyte# 0.64 X10^3/uL; Monocyte% 7.1 % (0-10); NRBC Flagged by Analyzer 0 % (0-5); Neutrophil % 59.6 % (47-70); POSITIVE MORPHOLOGY YES; Platelet Count 209 K/mm3 (150-450); RBC Distribution Width CV 13.8 % (11.6-14.6); RBC Distribution Width SD 45.1 fl (35.1-43.9); Red Blood Count 4.69 M/mm3 (4.2-5.4); White Blood Count 9.1 K/mm3 (4.4-11.0)
[2022-06-19 15:23] LABS: Differential Indicated SCAN CRITERIA MET
[2022-06-19 16:27] LABS: Atypical Lymphocyte 1+ %; Platelet Estimate ADEQUATE (ADEQ); Red Cell Morphology NORM C+C NORMAL (NORM C&C)
== END 2022-06-19 18:00 | disposition home or self-care (01) ==
LOC: LAB 14:49
PROVIDERS: Family Provider Family Medicine; PCP Family Medicine; Referring Provider Psychiatry & Neurology Psychiatry; Visit Provider Psychiatry & Neurology Psychiatry
DX: Z79.899 Other long term (current) drug therapy (principal)
CPT/HCPCS: 36415; 85025

== ENCOUNTER 2022-07-23 07:52 | Outpatient (RCR) | payer MEDICARE, MEDICAID, SELFPAY ==
[2022-07-12 21:34] VITALS: BMI 36.6
[2022-07-23 08:18] LABS: Absolute Lymphocyte Count 2.25 X10^3/uL (0.83-4.51); Absolute Neutrophil Count 4.6 X10^3/uL (2.0-7.7); Basophil# 0.04 X10^3/uL; Basophil% 0.5 % (0-1); Eosinophil# 0.01 X10^3/uL; Eosinophils% 0.1 % (0-5); Hematocrit 42.9 % (37-47); Hemoglobin 13.8 g/dL (12.0-15.0); Lymphocyte # 2.25 X10^3/ul (0.83-4.51); Lymphocyte % 30.5 % (19-41); Mean Corp Hgb Conc 32.2 g/dL (32-36); Mean Corpuscular Hgb 29.8 pg (27.0-32.0); Mean Corpuscular Volume 92.7 fL (81-99); Monocyte# 0.49 X10^3/uL; Monocyte% 6.6 % (0-10); NRBC Flagged by Analyzer 0 % (0-5); Neutrophil # 4.57 X10^3/uL (2.7-7.7); POSITIVE MORPHOLOGY YES; Platelet Count 210 K/mm3 (150-450); RBC Distribution Width CV 13.9 % (11.6-14.6); RBC Distribution Width SD 47.2 fl (35.1-43.9); Red Blood Count 4.63 M/mm3 (4.2-5.4); White Blood Count 7.4 K/mm3 (4.4-11.0)
[2022-07-23 08:23] LABS: Differential Indicated SCAN CRITERIA MET
[2022-07-23 08:59] LABS: Platelet Estimate ADEQUATE (ADEQ); Red Cell Morphology NORM C+C NORMAL (NORM C&C)
== END 2022-07-23 18:00 | disposition home or self-care (01) ==
LOC: LAB 07:52
PROVIDERS: Family Provider Family Medicine; PCP Family Medicine; Referring Provider Psychiatry & Neurology Psychiatry; Visit Provider Psychiatry & Neurology Psychiatry
DX: Z79.899 Other long term (current) drug therapy (principal)
CPT/HCPCS: 36415; 85025

== ENCOUNTER 2022-08-15 08:55 | Outpatient (RCR) | payer MEDICARE, MEDICAID, SELFPAY ==
[2022-08-13 10:20] VITALS: BMI 36.6
[2022-08-15 09:22] LABS: Absolute Lymphocyte Count 2.32 X10^3/uL (0.83-4.51); Absolute Neutrophil Count 3.8 X10^3/uL (2.0-7.7); Basophil# 0.04 X10^3/uL; Basophil% 0.6 % (0-1); Eosinophil# 0.02 X10^3/uL; Eosinophils% 0.3 % (0-5); Hematocrit 42.8 % (37-47); Hemoglobin 14.2 g/dL (12.0-15.0); Lymphocyte # 2.32 X10^3/ul (0.83-4.51); Lymphocyte % 34.9 % (19-41); Mean Corp Hgb Conc 33.2 g/dL (32-36); Mean Corpuscular Hgb 30.5 pg (27.0-32.0); Mean Platelet Vol. 10.1 fl (6.2-12.0); Monocyte# 0.43 X10^3/uL; Monocyte% 6.5 % (0-10); NRBC Flagged by Analyzer 0 % (0-5); Neutrophil # 3.83 X10^3/uL (2.7-7.7); Neutrophil % 57.5 % (47-70); POSITIVE MORPHOLOGY YES; Platelet Count 185 K/mm3 (150-450); RBC Distribution Width CV 13.6 % (11.6-14.6); RBC Distribution Width SD 45.7 fl (35.1-43.9); Red Blood Count 4.65 M/mm3 (4.2-5.4); White Blood Count 6.7 K/mm3 (4.4-11.0)
[2022-08-15 09:26] LABS: Differential Indicated SCAN CRITERIA MET
[2022-08-15 09:58] LABS: Platelet Morphology LARGE; Reactive Lymphocyte RARE
== END 2022-09-11 18:00 | disposition home or self-care (01) ==
LOC: LAB 08:55
PROVIDERS: Family Provider Family Medicine; PCP Family Medicine; Referring Provider Psychiatry & Neurology Psychiatry; Visit Provider Psychiatry & Neurology Psychiatry
DX: Z79.899 Other long term (current) drug therapy (principal)
CPT/HCPCS: 36415; 85025

== ENCOUNTER 2022-09-19 07:39 | Outpatient (RCR) | payer MEDICARE, MEDICAID, SELFPAY ==
[2022-09-11 23:10] VITALS: BMI 36.6
[2022-09-19 08:04] LABS: Absolute Lymphocyte Count 2.26 X10^3/uL (0.83-4.51); Absolute Neutrophil Count 3.7 X10^3/uL (2.0-7.7); Basophil# 0.04 X10^3/uL; Basophil% 0.6 % (0-1); Eosinophil# 0.02 X10^3/uL; Eosinophils% 0.3 % (0-5); Hematocrit 45.7 % (37-47); Hemoglobin 14.4 g/dL (12.0-15.0); Lymphocyte # 2.26 X10^3/ul (0.83-4.51); Lymphocyte % 33.9 % (19-41); Mean Corp Hgb Conc 31.5 g/dL (32-36); Mean Corpuscular Hgb 28.9 pg (27.0-32.0); Mean Corpuscular Volume 91.8 fL (81-99); Mean Platelet Vol. 10.2 fl (6.2-12.0); Monocyte# 0.65 X10^3/uL; Monocyte% 9.7 % (0-10); NRBC Flagged by Analyzer 0 % (0-5); Neutrophil # 3.68 X10^3/uL (2.7-7.7); Neutrophil % 55.2 % (47-70); POSITIVE MORPHOLOGY YES; Platelet Count 198 K/mm3 (150-450); RBC Distribution Width CV 13.2 % (11.6-14.6); RBC Distribution Width SD 44.5 fl (35.1-43.9); Red Blood Count 4.98 M/mm3 (4.2-5.4); White Blood Count 6.7 K/mm3 (4.4-11.0)
[2022-09-19 08:07] LABS: Differential Indicated SCAN CRITERIA MET
[2022-09-19 08:36] LABS: Atypical Lymphocyte 1+ %; Differential Comment SCANNED
== END 2022-09-19 18:00 | disposition home or self-care (01) ==
LOC: LAB 07:39
PROVIDERS: Family Provider Family Medicine; PCP Family Medicine; Referring Provider Psychiatry & Neurology Psychiatry; Visit Provider Psychiatry & Neurology Psychiatry
DX: Z79.899 Other long term (current) drug therapy (principal)
CPT/HCPCS: 36415; 85025

== ENCOUNTER 2022-10-17 15:05 | Outpatient (RCR) | payer MEDICARE, MEDICAID, SELFPAY ==
[2022-10-13 03:52] VITALS: BMI 36.6
[2022-10-17 17:19] LABS: Absolute Neutrophil Count 5.4 X10^3/uL (2.0-7.7); Basophil# 0.06 X10^3/uL; Basophil% 0.7 % (0-1); Eosinophil# 0.02 X10^3/uL; Eosinophils% 0.2 % (0-5); Hematocrit 46.3 % (37-47); Hemoglobin 14.9 g/dL (12.0-15.0); Lymphocyte % 30.6 % (19-41); Mean Corp Hgb Conc 32.2 g/dL (32-36); Mean Corpuscular Volume 90.3 fL (81-99); Mean Platelet Vol. 11.2 fl (6.2-12.0); Monocyte# 0.66 X10^3/uL; Monocyte% 7.5 % (0-10); NRBC Flagged by Analyzer 0 % (0-5); Neutrophil # 5.36 X10^3/uL (2.7-7.7); Neutrophil % 60.7 % (47-70); Platelet Count 199 K/mm3 (150-450); RBC Distribution Width CV 13.3 % (11.6-14.6); RBC Distribution Width SD 43.7 fl (35.1-43.9); Red Blood Count 5.13 M/mm3 (4.2-5.4); White Blood Count 8.8 K/mm3 (4.4-11.0)
== END 2022-10-17 16:00 | disposition home or self-care (01) ==
LOC: LAB 15:05
PROVIDERS: Family Provider Family Medicine; PCP Family Medicine; Referring Provider Psychiatry & Neurology Psychiatry; Visit Provider Psychiatry & Neurology Psychiatry
DX: Z79.899 Other long term (current) drug therapy (principal)
CPT/HCPCS: 36415; 85025

== ENCOUNTER 2022-11-19 10:58 | Outpatient (RCR) | payer MEDICARE, MEDICAID, SELFPAY ==
[2022-11-13 08:16] VITALS: BMI 36.6
[2022-11-19 11:20] LABS: Absolute Lymphocyte Count 2.45 X10^3/uL (0.83-4.51); Basophil# 0.05 X10^3/uL; Basophil% 0.6 % (0-1); Eosinophil# 0.02 X10^3/uL; Eosinophils% 0.2 % (0-5); Hematocrit 45.5 % (37-47); Hemoglobin 14.4 g/dL (12.0-15.0); Lymphocyte # 2.45 X10^3/ul (0.83-4.51); Lymphocyte % 30.1 % (19-41); Mean Corp Hgb Conc 31.6 g/dL (32-36); Mean Corpuscular Hgb 29.1 pg (27.0-32.0); Mean Corpuscular Volume 91.9 fL (81-99); Mean Platelet Vol. 9.8 fl (6.2-12.0); Monocyte% 7.4 % (0-10); NRBC Flagged by Analyzer 0 % (0-5); Neutrophil # 5.01 X10^3/uL (2.7-7.7); Neutrophil % 61.5 % (47-70); Platelet Count 198 K/mm3 (150-450); RBC Distribution Width CV 13.7 % (11.6-14.6); RBC Distribution Width SD 45.9 fl (35.1-43.9); Red Blood Count 4.95 M/mm3 (4.2-5.4); White Blood Count 8.2 K/mm3 (4.4-11.0)
== END 2022-11-19 18:00 | disposition home or self-care (01) ==
LOC: LAB 10:58
PROVIDERS: Family Provider Family Medicine; PCP Family Medicine; Referring Provider Psychiatry & Neurology Psychiatry; Visit Provider Psychiatry & Neurology Psychiatry
DX: Z79.899 Other long term (current) drug therapy (principal)
CPT/HCPCS: 36415; 85025

== ENCOUNTER 2022-12-16 10:59 | Outpatient (RCR) | payer MEDICARE, SELFPAY ==
[2022-12-10 22:30] VITALS: BMI 36.6
[2022-12-16 12:18] LABS: Absolute Lymphocyte Count 2.57 X10^3/uL (0.83-4.51); Absolute Neutrophil Count 4.5 X10^3/uL (2.0-7.7); Basophil# 0.04 X10^3/uL; Basophil% 0.5 % (0-1); Eosinophil# 0.02 X10^3/uL; Eosinophils% 0.3 % (0-5); Hematocrit 44.1 % (37-47); Hemoglobin 13.9 g/dL (12.0-15.0); Lymphocyte # 2.57 X10^3/ul (0.83-4.51); Lymphocyte % 33.2 % (19-41); Mean Corp Hgb Conc 31.5 g/dL (32-36); Mean Corpuscular Hgb 29.3 pg (27.0-32.0); Mean Corpuscular Volume 92.8 fL (81-99); Monocyte# 0.63 X10^3/uL; Monocyte% 8.1 % (0-10); NRBC Flagged by Analyzer 0 % (0-5); Neutrophil # 4.46 X10^3/uL (2.7-7.7); Neutrophil % 57.5 % (47-70); Platelet Count 193 K/mm3 (150-450); RBC Distribution Width CV 13.9 % (11.6-14.6); RBC Distribution Width SD 47.1 fl (35.1-43.9); Red Blood Count 4.75 M/mm3 (4.2-5.4); White Blood Count 7.8 K/mm3 (4.4-11.0)
== END 2023-01-10 23:00 | disposition home or self-care (01) ==
LOC: LAB 10:59
PROVIDERS: Family Provider Family Medicine; PCP Family Medicine; Referring Provider Psychiatry & Neurology Psychiatry; Visit Provider Psychiatry & Neurology Psychiatry
DX: Z79.899 Other long term (current) drug therapy (principal)
CPT/HCPCS: 36415; 85025

== ENCOUNTER 2023-01-15 09:24 | Outpatient (RCR) | payer MEDICARE, MEDICAID, SELFPAY ==
[2023-01-11 00:24] VITALS: BMI 36.6
[2023-01-15 10:32] LABS: Absolute Lymphocyte Count 1.99 X10^3/uL (0.83-4.51); Absolute Neutrophil Count 4.6 X10^3/uL (2.0-7.7); Basophil# 0.05 X10^3/uL; Basophil% 0.7 % (0-1); Eosinophil# 0.03 X10^3/uL; Eosinophils% 0.4 % (0-5); Hematocrit 46.9 % (37-47); Hemoglobin 14.9 g/dL (12.0-15.0); Lymphocyte # 1.99 X10^3/ul (0.83-4.51); Lymphocyte % 27.7 % (19-41); Mean Corp Hgb Conc 31.8 g/dL (32-36); Mean Corpuscular Hgb 29.1 pg (27.0-32.0); Mean Corpuscular Volume 91.6 fL (81-99); Mean Platelet Vol. 12.3 fl (6.2-12.0); Monocyte# 0.46 X10^3/uL; Monocyte% 6.4 % (0-10); NRBC Flagged by Analyzer 0 % (0-5); Neutrophil # 4.64 X10^3/uL (2.7-7.7); Neutrophil % 64.5 % (47-70); Platelet Count 168 K/mm3 (150-450); RBC Distribution Width CV 13.9 % (11.6-14.6); RBC Distribution Width SD 46.8 fl (35.1-43.9); Red Blood Count 5.12 M/mm3 (4.2-5.4); White Blood Count 7.2 K/mm3 (4.4-11.0)
== END 2023-02-09 01:19 | disposition home or self-care (01) ==
LOC: LAB 09:24
PROVIDERS: Family Provider Family Medicine; PCP Family Medicine; Referring Provider Psychiatry & Neurology Psychiatry; Visit Provider Psychiatry & Neurology Psychiatry
DX: Z79.899 Other long term (current) drug therapy (principal)
CPT/HCPCS: 36415; 85025

== ENCOUNTER 2023-02-17 14:03 | Outpatient (RCR) | payer MEDICARE, MEDICAID, SELFPAY ==
[2023-02-09 01:19] VITALS: BMI 36.6
[2023-02-17 14:52] LABS: Absolute Lymphocyte Count 2.63 X10^3/uL (0.83-4.51); Absolute Neutrophil Count 6.5 X10^3/uL (2.0-7.7); Basophil# 0.05 X10^3/uL; Basophil% 0.5 % (0-1); Eosinophil# 0.04 X10^3/uL; Eosinophils% 0.4 % (0-5); Hematocrit 45.8 % (37-47); Hemoglobin 14.8 g/dL (12.0-15.0); Lymphocyte # 2.63 X10^3/ul (0.83-4.51); Lymphocyte % 26.4 % (19-41); Mean Corp Hgb Conc 32.3 g/dL (32-36); Mean Corpuscular Hgb 29.3 pg (27.0-32.0); Mean Corpuscular Volume 90.7 fL (81-99); Mean Platelet Vol. 10.8 fl (6.2-12.0); NRBC Flagged by Analyzer 0 % (0-5); Neutrophil # 6.53 X10^3/uL (2.7-7.7); Neutrophil % 65.4 % (47-70); Platelet Count 192 K/mm3 (150-450); RBC Distribution Width CV 13.6 % (11.6-14.6); RBC Distribution Width SD 45.1 fl (35.1-43.9); Red Blood Count 5.05 M/mm3 (4.2-5.4)
== END 2023-03-12 18:00 | disposition home or self-care (01) ==
LOC: LAB 14:03
PROVIDERS: Family Provider Family Medicine; PCP Family Medicine; Referring Provider Psychiatry & Neurology Psychiatry; Visit Provider Psychiatry & Neurology Psychiatry
DX: Z79.899 Other long term (current) drug therapy (principal)
CPT/HCPCS: 36415; 85025

== ENCOUNTER 2023-03-17 11:01 | Outpatient (RCR) | payer MEDICARE, MEDICAID, SELFPAY ==
[2023-03-13 09:37] VITALS: BMI 36.6
[2023-03-17 11:20] LABS: Absolute Lymphocyte Count 2.43 X10^3/uL (0.83-4.51); Absolute Neutrophil Count 7.8 X10^3/uL (2.0-7.7); Basophil# 0.04 X10^3/uL; Basophil% 0.4 % (0-1); Eosinophil# 0.02 X10^3/uL; Eosinophils% 0.2 % (0-5); Hematocrit 43.1 % (37-47); Hemoglobin 14.2 g/dL (12.0-15.0); Lymphocyte # 2.43 X10^3/ul (0.83-4.51); Lymphocyte % 22.4 % (19-41); Mean Corp Hgb Conc 32.9 g/dL (32-36); Mean Corpuscular Hgb 29.7 pg (27.0-32.0); Mean Corpuscular Volume 90.2 fL (81-99); Mean Platelet Vol. 9.5 fl (6.2-12.0); Monocyte# 0.57 X10^3/uL; Monocyte% 5.3 % (0-10); NRBC Flagged by Analyzer 0 % (0-5); Neutrophil # 7.75 X10^3/uL (2.7-7.7); Neutrophil % 71.4 % (47-70); Platelet Count 201 K/mm3 (150-450); RBC Distribution Width CV 13.6 % (11.6-14.6); RBC Distribution Width SD 44.8 fl (35.1-43.9); Red Blood Count 4.78 M/mm3 (4.2-5.4); White Blood Count 10.8 K/mm3 (4.4-11.0)
== END 2023-03-17 18:00 | disposition home or self-care (01) ==
LOC: LAB 11:01
PROVIDERS: Family Provider Family Medicine; PCP Family Medicine; Referring Provider Psychiatry & Neurology Psychiatry; Visit Provider Psychiatry & Neurology Psychiatry
DX: Z79.899 Other long term (current) drug therapy (principal)
CPT/HCPCS: 36415; 85025

== ENCOUNTER → 2023-04-30 | Outpatient (CLI) | payer MEDICARE, MEDICAID, SELFPAY ==
--- NOTE | 2023-04-30 13:44 | CT_ITS ---
EXAM: CT CHEST, LUNG CANCER SCREENING WITHOUT INTRAVENOUS CONTRAST CLINICAL INDICATION: TOBACCO USE- QUIT 10 YRS AGO BUT SMOKED 2PPD SINCE AGE 14 TECHNIQUE: Helically acquired images were obtained of the chest without intravenous contrast using low dose (LDCT) lung cancer screening protocol. This CT exam was performed using one or more of the following dose reduction techniques: automated exposure control, adjustment of the mA and/or kV according to patient size, and/or use of iterative reconstruction technique. COMPARISON: 04/18/2022 FINDINGS: LUNGS AND PLEURAL SPACES: There is minimal scarring in the left lung base. No mass. No pleural effusion or thickening. No pneumothorax. HEART: Unremarkable. Heart size is normal. No pericardial effusion. No significant coronary artery calcifications. MEDIASTINUM: Unremarkable. No mediastinal or hilar adenopathy. Esophagus is unremarkable. No hiatal hernia. THYROID: Unremarkable. No thyroid lesions. BONES/JOINTS: Unremarkable. No suspicious lytic or blastic abnormality. VASCULATURE: Unremarkable. Thoracic aorta is non-dilated. LYMPH NODES: Unremarkable. No enlarged lymph nodes. CT/Low Dose CT Lung Screening IMPRESSION: No evidence malignancy. Lung-RADS score: 1 - Negative. Recommend continued annual screening with a low-dose CT (LDCT) in 12 months. Electronically Signed: Tj Rosales MD at 16:51 EDT ,
== END | disposition home or self-care (01) ==
LOC: CT 13:43
PROVIDERS: PCP Family Medicine; Referring Provider Internal Medicine Pulmonary Disease; Visit Provider Internal Medicine Pulmonary Disease
DX: Z12.2 Encounter for screening for malignant neoplasm of respiratory organs (principal); Z87.891 Personal history of nicotine dependence
CPT/HCPCS: 71271

== ENCOUNTER 2023-05-05 14:21 | Outpatient (RCR) | payer MEDICARE, MEDICAID, SELFPAY ==
[2023-04-11 22:19] VITALS: BMI 36.6
[2023-05-05 15:07] LABS: Absolute Lymphocyte Count 2.52 X10^3/uL (0.83-4.51); Absolute Neutrophil Count 5.3 X10^3/uL (2.0-7.7); Basophil# 0.05 X10^3/uL; Basophil% 0.6 % (0-1); Eosinophil# 0.02 X10^3/uL; Eosinophils% 0.2 % (0-5); Hemoglobin 14.8 g/dL (12.0-15.0); Lymphocyte # 2.52 X10^3/ul (0.83-4.51); Lymphocyte % 29.3 % (19-41); Mean Corp Hgb Conc 32.2 g/dL (32-36); Mean Corpuscular Hgb 29.5 pg (27.0-32.0); Mean Corpuscular Volume 91.8 fL (81-99); Mean Platelet Vol. 10.6 fl (6.2-12.0); Monocyte# 0.68 X10^3/uL; Monocyte% 7.9 % (0-10); NRBC Flagged by Analyzer 0 % (0-5); Neutrophil % 61.7 % (47-70); POSITIVE MORPHOLOGY YES; Platelet Count 222 K/mm3 (150-450); RBC Distribution Width CV 13.7 % (11.6-14.6); RBC Distribution Width SD 45.9 fl (35.1-43.9); Red Blood Count 5.01 M/mm3 (4.2-5.4); White Blood Count 8.6 K/mm3 (4.4-11.0)
[2023-05-05 15:56] LABS: Differential Indicated SCAN CRITERIA MET
[2023-05-05 16:02] LABS: Anisocytosis RARE; Atypical Lymphocyte 1+ %; Platelet Estimate ADEQUATE (ADEQ); Red Cell Morphology N CHROM NORMAL (NORM C&C)
== END 2023-05-12 18:00 | disposition home or self-care (01) ==
LOC: LAB 14:21
PROVIDERS: Family Provider Family Medicine; PCP Family Medicine; Referring Provider Psychiatry & Neurology Psychiatry; Visit Provider Psychiatry & Neurology Psychiatry
DX: Z79.899 Other long term (current) drug therapy (principal)
CPT/HCPCS: 36415; 85025

== ENCOUNTER 2023-05-20 11:06 | Outpatient (RCR) | payer MEDICARE, MEDICAID, SELFPAY ==
[2023-05-13 00:41] VITALS: BMI 36.6
[2023-05-20 11:28] LABS: Absolute Lymphocyte Count 2.71 X10^3/uL (0.83-4.51); Absolute Neutrophil Count 5.6 X10^3/uL (2.0-7.7); Basophil# 0.04 X10^3/uL; Basophil% 0.4 % (0-1); Eosinophil# 0.03 X10^3/uL; Eosinophils% 0.3 % (0-5); Hematocrit 44.5 % (37-47); Hemoglobin 13.9 g/dL (12.0-15.0); Lymphocyte # 2.71 X10^3/ul (0.83-4.51); Lymphocyte % 29.4 % (19-41); Mean Corp Hgb Conc 31.2 g/dL (32-36); Mean Corpuscular Volume 92.9 fL (81-99); Mean Platelet Vol. 9.9 fl (6.2-12.0); Monocyte# 0.83 X10^3/uL; NRBC Flagged by Analyzer 0 % (0-5); Neutrophil # 5.56 X10^3/uL (2.7-7.7); Neutrophil % 60.5 % (47-70); POSITIVE MORPHOLOGY YES; Platelet Count 207 K/mm3 (150-450); RBC Distribution Width CV 13.7 % (11.6-14.6); RBC Distribution Width SD 46.7 fl (35.1-43.9); Red Blood Count 4.79 M/mm3 (4.2-5.4); White Blood Count 9.2 K/mm3 (4.4-11.0)
[2023-05-20 11:38] LABS: Differential Indicated SCAN CRITERIA MET
[2023-05-20 13:05] LABS: Differential Comment SCANNED
== END 2023-05-20 18:00 | disposition home or self-care (01) ==
LOC: LAB 11:06
PROVIDERS: Family Provider Family Medicine; PCP Family Medicine; Referring Provider Psychiatry & Neurology Psychiatry; Visit Provider Psychiatry & Neurology Psychiatry
DX: Z79.899 Other long term (current) drug therapy (principal)
CPT/HCPCS: 36415; 85025

== ENCOUNTER 2023-06-18 08:08 | Outpatient (RCR) | payer MEDICARE, MEDICAID, SELFPAY ==
[2023-06-12 22:53] VITALS: BMI 36.6
[2023-06-18 09:05] LABS: Absolute Neutrophil Count 5.3 X10^3/uL (2.0-7.7); Basophil# 0.03 X10^3/uL; Basophil% 0.4 % (0-1); Eosinophil# 0.03 X10^3/uL; Eosinophils% 0.4 % (0-5); Hematocrit 43.1 % (37-47); Hemoglobin 13.9 g/dL (12.0-15.0); Lymphocyte % 23.1 % (19-41); Mean Corp Hgb Conc 32.3 g/dL (32-36); Mean Corpuscular Hgb 29.8 pg (27.0-32.0); Mean Corpuscular Volume 92.5 fL (81-99); Mean Platelet Vol. 11.9 fl (6.2-12.0); Monocyte# 0.32 X10^3/uL; Monocyte% 4.4 % (0-10); NRBC Flagged by Analyzer 0 % (0-5); Neutrophil # 5.25 X10^3/uL (2.7-7.7); Neutrophil % 71.4 % (47-70); Platelet Count 149 K/mm3 (150-450); RBC Distribution Width CV 13.6 % (11.6-14.6); RBC Distribution Width SD 46.5 fl (35.1-43.9); Red Blood Count 4.66 M/mm3 (4.2-5.4); White Blood Count 7.4 K/mm3 (4.4-11.0)
== END 2023-06-18 18:00 | disposition home or self-care (01) ==
LOC: LAB 08:08
PROVIDERS: Family Provider Family Medicine; PCP Family Medicine; Referring Provider Psychiatry & Neurology Psychiatry; Visit Provider Psychiatry & Neurology Psychiatry
DX: Z79.899 Other long term (current) drug therapy (principal)
CPT/HCPCS: 36415; 85025

== ENCOUNTER 2023-07-17 08:16 | Outpatient (RCR) | payer MEDICARE, MEDICAID, SELFPAY ==
[2023-07-13 02:43] VITALS: BMI 36.6
[2023-07-17 08:40] LABS: Absolute Lymphocyte Count 1.66 X10^3/uL (0.83-4.51); Absolute Neutrophil Count 5.9 X10^3/uL (2.0-7.7); Basophil# 0.03 X10^3/uL; Basophil% 0.4 % (0-1); Eosinophil# 0.02 X10^3/uL; Eosinophils% 0.3 % (0-5); Hematocrit 41.7 % (37-47); Hemoglobin 13.3 g/dL (12.0-15.0); Lymphocyte # 1.66 X10^3/ul (0.83-4.51); Lymphocyte % 20.8 % (19-41); Mean Corp Hgb Conc 31.9 g/dL (32-36); Mean Corpuscular Hgb 29.4 pg (27.0-32.0); Mean Corpuscular Volume 92.1 fL (81-99); Mean Platelet Vol. 9.5 fl (6.2-12.0); NRBC Flagged by Analyzer 0 % (0-5); Neutrophil # 5.87 X10^3/uL (2.7-7.7); Neutrophil % 73.4 % (47-70); Platelet Count 190 K/mm3 (150-450); RBC Distribution Width CV 13.3 % (11.6-14.6); RBC Distribution Width SD 45.3 fl (35.1-43.9); Red Blood Count 4.53 M/mm3 (4.2-5.4)
== END 2023-07-17 18:00 | disposition home or self-care (01) ==
LOC: LAB 08:16
PROVIDERS: Family Provider Family Medicine; PCP Family Medicine; Referring Provider Psychiatry & Neurology Psychiatry; Visit Provider Psychiatry & Neurology Psychiatry
DX: Z79.899 Other long term (current) drug therapy (principal)
CPT/HCPCS: 36415; 85025

== ENCOUNTER 2023-08-14 17:01 | Inpatient (IN) | payer MEDICARE, MEDICAID, SELFPAY ==
[2023-08-14] VITALS (8 sets, daily range): BP systolic 110–140; BP diastolic 68–85; PULSE 97–117; RESP 18–29; TEMP 36.3; O2SAT 90–95; BMI 33.5; BMI 32.3
--- NOTE | 2023-08-14 18:11 | RAD_ITS ---
STUDY: X-RAY CHEST REASON FOR EXAM: Female, 57 years old. Dyspnea TECHNIQUE: Single AP portable view of the chest. COMPARISON: September 10, 2020 FINDINGS: There are monitoring devices. There are mild interstitial increased opacities of the lungs. There is no demonstrated pleural abnormality. Normal size heart. Normal mediastinum and reshma. Normal visualized pulmonary arteries. Normal visualized aortic arch and descending thoracic aorta. Normal visualized thoracic spine. Normal visualized ribs, clavicles, and shoulders. There is no demonstrated abnormality of the visualized soft tissue structures of the upper abdomen. RAD/Chest 1 View (Portable) IMPRESSION: Mild interstitial edema or infiltrates. Electronically Signed: Luis Camilo MD at 19:05 EDT ,
--- NOTE | 2023-08-14 18:12 | ED.RN ---
ATTEMPTED TO CALL Estela VELASQUEZ. NO ANSWER. MESSAGE LEF TO RETURN CALL
--- NOTE | 2023-08-14 18:13 | ED.VIS.DYS ---
HPI History of Present Illness Chief Complaint: Shortness of Breath Narrative Narrative: 57-year-old female presenting with shortness of breath. She states has been having fever, chills, body aches, nasal congestion for a couple of days. [facility] She is been given ibuprofen. She requested Flonase but was not given this. Patient states her Tmax was 102. She denies chest pain but is having shortness of breath. Has a history of COPD. [facility] Medical History (Updated 08/14/23 @ 22:[address] Amy Moreno MD) Anxiety and depression COPD (chronic obstructive pulmonary disease) GERD (gastroesophageal reflux disease) HTN (hypertension) Hyperlipidemia Obesity LIDA on CPAP Restless leg syndrome Schizophrenia Type 2 diabetes mellitus Home Medications cholecalciferol (vitamin D3) 25 mcg (1,000 unit) capsule (Vitamin D3) 1,000 unit PO DAILY SUPPLEMENT 10/17/17 [History Last Taken 07/30/21] aspirin 325 mg tablet,delayed release 325 mg PO DAILY@1600 heart health 07/22/18 [History Last Taken 07/30/21] lubiprostone 24 mcg capsule (Amitiza) 24 mcg PO BID@0800,1600 bowels 07/22/18 [History Last Taken 07/30/21] omeprazole 20 mg capsule,delayed release 20 mg PO DAILY indigestion 10/31/19 [History Last Taken 07/30/21] potassium chloride 20 mEq tablet,extended release(part/cryst) 20 meq PO DAILY supplement 11/16/19 [History Last Taken 07/30/21] risperidone 1 mg tablet 2 mg PO QHS mood 11/16/19 [History Last Taken 07/29/21] clozapine 100 mg tablet 25 mg PO DAILY@0800 SCHIZOPHRENIA 07/30/21 [History Last Taken 07/30/21] clozapine 100 mg tablet 500 mg PO QHS SCHIZOPHRENIA 07/30/21 [History Last Taken 07/29/21] empagliflozin 10 mg tablet (Jardiance) 10 mg PO DAILY 07/30/21 [History Last Taken 07/30/21] furosemide 20 mg tablet 20 mg PO DAILY FLUID 07/30/21 [History Last Taken 07/30/21] insulin glargine 100 unit/mL (3 mL) subcutaneous pen (Lantus Solostar U-100 Insulin) 40 unit subcut DAILY@1600 DM 07/30/21 [History Last Taken 07/30/21] metoprolol succinate 25 mg tablet,extended release 24 hr 25 mg PO QHS 07/30/21 [History Last Taken 07/29/21] psyllium 1 packet PO QHS SUPPLEMENT 07/30/21 [History Last Taken 07/29/21] clonazepam 0.5 mg tablet 0.5 mg PO TID 06/05/22 [History Last Taken Unknown] ferrous sulfate 325 mg (65 mg iron) tablet (Feosol) 325 mg PO BID 06/05/22 [History Last Taken Unknown] glipizide 5 mg tablet 5 mg PO DAILY 06/05/22 [History Last Taken Unknown] metformin 500 mg tablet 500 mg PO BID 06/05/22 [History Last Taken Unknown] pramipexole 0.5 mg tablet 0.5 mg PO QHS 06/05/22 [History Last Taken Unknown] pravastatin 20 mg tablet 20 mg PO DAILY 06/05/22 [History Last Taken Unknown] Allergy/AdvReac Type Severity Reaction Status Date / Time No Known Allergies Allergy Verified 08/14/23 17:01 Family History (Updated 08/14/23 @ 21:[address] Amy Moreno MD) Mother Heart disease Hypertension Father COPD (chronic obstructive pulmonary disease) Cancer Surgical History (Updated 08/14/23 @ 21:[address] Amy Moreno MD) History of cholecystectomy History of mandibular surgery Social History (Updated 08/14/23 @ 21:[address] Amy Mroeno MD) housing: other details: care home. Smoking Status: Former smoker how long ago did patient quit smoking: Quit 10 years prior to 08/14/23 presentation, 2 ppd since teen until quit. alcohol intake: never substance use type: does not use ROS ROS ED Constitutional Constitutional ED: Reports chills and fever(s) Eyes Eyes: Denies change in vision or diplopia ENT ENT ED: Reports rhinorrhea and other Cardiovascular Cardiovascular: Denies chest pain Respiratory/Chest Respiratory/Chest: Reports cough and dyspnea Gastrointestinal Gastrointestinal: Denies nausea or vomiting Genitourinary Genitourinary ED: Denies dysuria or hematuria Musculoskeletal Musculoskeletal: Reports myalgias; Denies arthralgias Integumentary Denies abscess or Abrasions Neurologic Neurologic: Reports headache(s) EXAM Physical Exam Const Vital Signs: 08/14/23 17:02 11/02/23 17:06 08/14/23 17:30 Temperature 97.4 F L 97.4 F L Temperature Source Temporal Temporal Pulse Rate 117 H 116 H Respiratory Rate 29 H 28 H Respiratory Effort Normal Respiratory Depth Normal Respiratory Pattern Normal Blood Pressure 140/85 H 137/79 H Blood Pressure Mean 103 98 Pulse Ox 95 94 Oxygen Delivery Method Room Air Room Air Room Air 08/14/23 18:11 08/14/23 18:29 08/14/23 19:24 Temperature Temperature Source Pulse Rate 114 H 112 H Respiratory Rate 18 26 H Respiratory Effort Respiratory Depth Respiratory Pattern Blood Pressure 117/69 Blood Pressure Mean 85 Pulse Ox 94 Oxygen Delivery Method Room Air Room Air Positive well nourished General Appearance ED: NAD HEENT Reports moist mucous membranes Eyes PERRL and EOMs intact bilaterally Resp Resp Narrative: Tachypnea Auscultation: wheezes expiratory wheezes Cardio regular rate Rate: tachycardic GI non-tender Neuro oriented x3 and CN's II-XII intact bilaterally Sensorium / Orientation: alert Psych Mood & Affect: anxious Skin no wounds MDM MDM MDM Narrative Medical decision making narrative: Patient presenting with shortness of breath, fever, chills, body aches. I suspect something viral. She states he was tested [facility] jail and was negative. Differential includes COVID-19, influenza, pneumonia, CHF, hyperglycemia, dehydration, electrolyte abnormalities, COPD exacerbation. Patient medicated with breathing treatments and Solu-Medrol. We will obtain a CBC to assess white blood cell count, hemoglobin, platelets. CMP to assess liver function, renal function, electrolytes. High-sensitivity troponin EKG to assess for ischemia/dysrhythmia. Chest x-ray to rule out pneumonia. Patient will be tested for COVID and influenza. CBC shows slight leukocytosis at 13.2. Hemoglobin stable 14. Platelets are normal at 182. Renal function and electrolytes are normal. High-sensitivity troponin less than 3. Chest x-ray my interpretation shows this to be infiltrates. BNP is normal at 2.9. AG sinus tachycardia with a ventricular to 104 bpm without sign of ischemic change or ectopy on my interpretation. After breathing treatments patient was ambulated in the hallway and desats to 88%. I think she benefit from inpatient care. Discussed with hospitalist for admission. Her COVID and influenza came back negative. Hospitalist was to hold off on antibiotics right now and will add acetone and to determine whether she wants antibiotics. Impression: 1. COPD exacerbation 2. Hypoxia Lab Data Attestation: I reviewed the patient's lab results. Labs: Laboratory Results - last 24 hr 08/14/23 18:20 WBC 13.2 H RBC 4.85 Hgb 14.0 Hct 44.0 MCV 90.7 MCH 28.9 MCHC 31.8 L RDW Std Deviation 44.6 H RDW Coeff of Tyesha 13.4 Plt Count 182 MPV 10.7 Immature Gran % (Auto) 0.400 Neut % (Auto) 79.4 H Lymph % (Auto) 12.3 L [place] % (Auto) 7.5 Eos % (Auto) 0.0 Baso % (Auto) 0.4 Absolute Neuts (auto) 10.5 H Absolute Lymphs (auto) 1.62 Nucleated RBC % 0 Sodium 137 Potassium 3.8 Chloride 102 Carbon Dioxide 26.0 Anion Gap 9 BUN 15 Creatinine 0.68 Estim Creat Clear Calc 67.22 Est GFR (MDRD) Af Amer 114 Est GFR (MDRD) Non-Af 94 BUN/Creatinine Ratio 22.2 H Glucose 153 H Calcium 9.2 Total Bilirubin 0.70 AST 50 H ALT 72 H Alkaline Phosphatase 150 H Troponin I High Sens < 3 L B-Natriuretic Peptide 2.9 Total Protein 8.0 Albumin 3.8 Globulin 4.2 Albumin/Globulin Ratio 0.9 Radiography Diagnostic Testing: Clinical Impression(s) from Imaging Studies Chest X-Ray 08/14/23 18:11 IMPRESSION: Mild interstitial edema or infiltrates. Electronically Signed: Luis Camilo MD at 19:05 EDT , Discharge Plan Triage Chief Complaint: Shortness of Breath ED Provider: Jey Quesada Dx/Rx/DC Orders Primary Care Provider: Boris Vance
[2023-08-14] MEDS: Oxymetazoline 0.05% 1 SPRAY SPRAY.BTL NASAL (18:20)
[2023-08-14] MEDS: MethylPREDNISolone 125 MG/2 ML Vial IV (18:21)
[2023-08-14] MEDS: 0.9% Normal Saline (1000mL) 1,000 ML 999 ML IV (18:21)
[2023-08-14] MEDS: Ipratropium/Albuterol Sulfate 3 ML AMPUL.NEB INHALATION (18:29)
[2023-08-14] MEDS: Albuterol 2.5 MG/3 ML VIAL.NEB. INHALATION (18:29)
[2023-08-14 18:39] LABS: Absolute Lymphocyte Count 1.62 X10^3/uL (0.83-4.51); Absolute Neutrophil Count 10.5 X10^3/uL (2.0-7.7); Basophil# 0.05 X10^3/uL; Basophil% 0.4 % (0-1); Lymphocyte # 1.62 X10^3/ul (0.83-4.51); Lymphocyte % 12.3 % (19-41); Mean Corp Hgb Conc 31.8 g/dL (32-36); Mean Corpuscular Hgb 28.9 pg (27.0-32.0); Mean Corpuscular Volume 90.7 fL (81-99); Mean Platelet Vol. 10.7 fl (6.2-12.0); Monocyte# 0.99 X10^3/uL; Monocyte% 7.5 % (0-10); NRBC Flagged by Analyzer 0 % (0-5); Neutrophil # 10.47 X10^3/uL (2.7-7.7); Neutrophil % 79.4 % (47-70); Platelet Count 182 K/mm3 (150-450); RBC Distribution Width CV 13.4 % (11.6-14.6); RBC Distribution Width SD 44.6 fl (35.1-43.9); Red Blood Count 4.85 M/mm3 (4.2-5.4); White Blood Count 13.2 K/mm3 (4.4-11.0)
[2023-08-14 19:13] LABS: Troponin-I HS < 3 pg/mL (3.0-54.0)
[2023-08-14 19:42] LABS: ALB/GLOB Ratio 0.9 RATIO (0.9-2.4); AST(SGOT) 50 U/L (15-37); Alanine Aminotransfer ALT/SGPT 72 U/L (13-56); Albumin, Serum 3.8 g/dL (3.2-5.0); Alkaline Phosphatase 150 U/L (45-117); Anion Gap 9 (5-15); BUN 15 mg/dL (7-18); BUN/Creat Ratio 22.2 RATIO (10-20); Calcium,Total 9.2 mg/dL (8.5-10.1); Chloride 102 mmol/L (98-107); Creatinine, Serum 0.68 mg/dL (0.55-1.02); EST Glomerular Filtration Rate 94 mL/min (>60); Est Glom Filt Rate - Afr Amer 114 mL/min (>60); Estimated Creatinine Clearance 67.22 ml/min; Globulin 4.2 g/dL (2.2-4.2); Glucose 153 mg/dL (74-106); Potassium 3.8 mmol/L (3.5-5.1); Sodium Level 137 mmol/L (136-145)
[2023-08-14 19:50] LABS: BNP,B-Type NATRIURETIC PEPTIDE 2.9 pg/mL (0-100)
--- NOTE | 2023-08-14 21:36 | EKG12_ITS ---
Test Reason : SOB Blood Pressure : / mmHG Vent. Rate : 104 BPM Atrial Rate : 104 BPM P-R Int : 150 ms QRS Dur : 074 ms QT Int : 338 ms P-R-T Axes : 047 008 057 degrees QTc Int : 444 ms Sinus tachycardia Low voltage QRS Septal infarct (cited on or before 05-JUN-2022) Abnormal ECG Confirmed by TAMMY SANDERS, GLORIA ([id number]), fashion editor ROSY CLINE ([id number]) on 08/25/2023 7:38:57 AM Referred By: Confirmed By:EMILIO MUNOZ MD
--- NOTE | 2023-08-14 21:50 | PCM.HP.STD ---
HPI - General General Date of Admission: 08/14/23 Date of Service: 08/14/23 HPI Narrative BRENDA TAFOYA, is a 57 F who presents [facility] Medical History (Updated 08/14/23 @ 21:[address] Amy Moreno MD) Anxiety and depression COPD (chronic obstructive pulmonary disease) GERD (gastroesophageal reflux disease) HTN (hypertension) Hyperlipidemia Obesity Restless leg syndrome Schizophrenia Type 2 diabetes mellitus Home Medications cholecalciferol (vitamin D3) 25 mcg (1,000 unit) capsule (Vitamin D3) 1,000 unit PO DAILY SUPPLEMENT 10/17/17 [History Last Taken 07/30/21] aspirin 325 mg tablet,delayed release 325 mg PO DAILY@1600 heart health 07/22/18 [History Last Taken 07/30/21] lubiprostone 24 mcg capsule (Amitiza) 24 mcg PO BID@0800,1600 bowels 07/22/18 [History Last Taken 07/30/21] omeprazole 20 mg capsule,delayed release 20 mg PO DAILY indigestion 10/31/19 [History Last Taken 07/30/21] potassium chloride 20 mEq tablet,extended release(part/cryst) 20 meq PO DAILY supplement 11/16/19 [History Last Taken 07/30/21] risperidone 1 mg tablet 2 mg PO QHS mood 11/16/19 [History Last Taken 07/29/21] clozapine 100 mg tablet 25 mg PO DAILY@0800 SCHIZOPHRENIA 07/30/21 [History Last Taken 07/30/21] clozapine 100 mg tablet 500 mg PO QHS SCHIZOPHRENIA 07/30/21 [History Last Taken 07/29/21] empagliflozin 10 mg tablet (Jardiance) 10 mg PO DAILY 07/30/21 [History Last Taken 07/30/21] furosemide 20 mg tablet 20 mg PO DAILY FLUID 07/30/21 [History Last Taken 07/30/21] insulin glargine 100 unit/mL (3 mL) subcutaneous pen (Lantus Solostar U-100 Insulin) 40 unit subcut DAILY@1600 DM 07/30/21 [History Last Taken 07/30/21] metoprolol succinate 25 mg tablet,extended release 24 hr 25 mg PO QHS 07/30/21 [History Last Taken 07/29/21] psyllium 1 packet PO QHS SUPPLEMENT 07/30/21 [History Last Taken 07/29/21] clonazepam 0.5 mg tablet 0.5 mg PO TID 06/05/22 [History Last Taken Unknown] ferrous sulfate 325 mg (65 mg iron) tablet (Feosol) 325 mg PO BID 06/05/22 [History Last Taken Unknown] glipizide 5 mg tablet 5 mg PO DAILY 06/05/22 [History Last Taken Unknown] metformin 500 mg tablet 500 mg PO BID 06/05/22 [History Last Taken Unknown] pramipexole 0.5 mg tablet 0.5 mg PO QHS 06/05/22 [History Last Taken Unknown] pravastatin 20 mg tablet 20 mg PO DAILY 06/05/22 [History Last Taken Unknown] Allergy/AdvReac Type Severity Reaction Status Date / Time No Known Allergies Allergy Verified 08/14/23 17:01 Family History (Updated 08/14/23 @ 21:[address] Amy Moreno MD) Mother Heart disease Hypertension Father COPD (chronic obstructive pulmonary disease) Cancer Surgical History (Updated 08/14/23 @ 21:[address] Amy Moreno MD) History of cholecystectomy History of mandibular surgery Social History (Updated 08/14/23 @ 21:[address] Amy Moreno MD) housing: other details: assisted. Smoking Status: Former smoker how long ago did patient quit smoking: Quit 10 years prior to 08/14/23 presentation, 2 ppd since teen until quit. alcohol intake: never substance use type: does not use Vital Signs Vital Signs Vital Signs: 08/14/23 17:02 08/14/23 17:06 08/14/23 17:30 Temperature 97.4 F L 97.4 F L Temperature Source Temporal Temporal Pulse Rate 117 H 116 H Respiratory Rate 29 H 28 H Respiratory Effort Normal Respiratory Depth Normal Respiratory Pattern Normal Blood Pressure 140/85 H 137/79 H Blood Pressure Mean 103 98 Pulse Ox 95 94 Oxygen Delivery Method Room Air Room Air Room Air 08/14/23 18:11 08/14/23 18:29 08/14/23 19:24 Temperature Temperature Source Pulse Rate 114 H 112 H Respiratory Rate 18 26 H Respiratory Effort Respiratory Depth Respiratory Pattern Blood Pressure 117/69 Blood Pressure Mean 85 Pulse Ox 94 Oxygen Delivery Method Room Air Room Air Weight Weight: 177 lb 11.081 oz Body Mass Index (BMI) 33.5 Results Lab / Micro Data 08/14/23 18:20 08/14/23 18:20 Labs: Laboratory Results - last 24 hr 08/14/23 18:20: WBC 13.2 H, RBC 4.85, Hgb 14.0, Hct 44.0, MCV 90.7, MCH 28.9, MCHC 31.8 L, RDW Std Deviation 44.6 H, RDW Coeff of Tyesha 13.4, Plt Count 182, MPV 10.7, Immature Gran % (Auto) 0.400, Neut % (Auto) 79.4 H, Lymph % (Auto) 12.3 L, [place] % (Auto) 7.5, Eos % (Auto) 0.0, Baso % (Auto) 0.4, Absolute Neuts (auto) 10.5 H, Absolute Lymphs (auto) 1.62, Nucleated RBC % 0, Sodium 137, Potassium 3.8, Chloride 102, Carbon Dioxide 26.0, Anion Gap 9, BUN 15, Creatinine 0.68, Estim Creat Clear Calc 67.22, Est GFR (MDRD) Af Amer 114, Est GFR (MDRD) Non-Af 94, BUN/Creatinine Ratio 22.2 H, Glucose 153 H, Calcium 9.2, Total Bilirubin 0.70, AST 50 H, ALT 72 H, Alkaline Phosphatase 150 H, Troponin I High Sens < 3 L, B-Natriuretic Peptide 2.9, Total Protein 8.0, Albumin 3.8, Globulin 4.2, Albumin/Globulin Ratio 0.9 Micro: Microbiology 08/14/23 18:20 Nasal Secretion SARS-CoV-2 & FLU Antigen (Rapid) - Final Radiology Impression Chest X-Ray 08/14/23 18:11 IMPRESSION: Mild interstitial edema or infiltrates. Electronically Signed: Luis Camilo MD at 19:05 EDT ,
--- NOTE | 2023-08-14 22:08 | HP.PCM.HOS_ITS ---
HPI - General General Date of Admission: 08/14/23 Date of Service: 08/14/23 Chief Complaint: Dyspnea, cough not markedly productive, congestion, fever, chills, wheezing. HPI Narrative The patient is a 57 y/o F w/ PMHx: GERD, RLS, Chronic transaminitis/elevated alk phos, LIDA on CPAP, HTN, HLD, Anxiety and Depression/Schizophrenia unclear type, COPD w/ prior Chronic Hypoxic Respiratory Failure (3L NC) reported in her chart but currently upon presentation not using supplementation, Diabetes mellitus type II, Former Heavy Tobacco use, Obesity who presents to the [facility] ED on 08/14/23 with history of 3 to 4 days of upper respiratory type symptoms including nasal congestion, rhinorrhea in addition to fever, chills, body aches as well as not markedly productive cough with wheezing not improving with worsening dyspnea sensation prompting eventual correction transition to the ED for evaluation. Patient notes Tmax at her correction 102. She is unsure if there have been other sick contacts at the correction. Work-up in the ED included 97.4, heart rate 117, BP 140/85, respiratory rate 29, 95% on room air with most recent vital signs heart rate 112, BP 117/69, respiratory rate 26, 94% on room air however patient was ambulated and did desaturate to 8788% with exertion but improved again with rest, CBC with WC 13.2, hemoglobin 14, platelet 182 with left shift, CMP with glucose 153, AST/ALT 50/72, alk phos 150, troponin less than 3, BNP 2.9 otherwise hepatic profile not marked appearing, chest x-ray with mild interstitial edema versus infiltrate, rapid SARS COVID and influenza antigens negative, EKG with sinus tachycardia with no acute evidence of ischemia. In the ED patient ministered normal saline bolus, albuterol and DuoNeb therapy, Solu- Medrol 125 mg IV x1 as well as Afrin nasal spray as patient complaining of significant nasal congestion. [facility] Medical History (Updated 08/14/23 @ 22:[address] Amy Moreno MD) Anxiety and depression COPD (chronic obstructive pulmonary disease) GERD (gastroesophageal reflux disease) HTN (hypertension) Hyperlipidemia Obesity LIDA on CPAP Restless leg syndrome Schizophrenia Type 2 diabetes mellitus Home Medications cholecalciferol (vitamin D3) 25 mcg (1,000 unit) capsule (Vitamin D3) 1,000 unit PO DAILY SUPPLEMENT 10/17/17 [History Last Taken 07/30/21] aspirin 325 mg tablet,delayed release 325 mg PO DAILY@1600 heart health 07/22/18 [History Last Taken 07/30/21] lubiprostone 24 mcg capsule (Amitiza) 24 mcg PO BID@0800,1600 bowels 07/22/18 [History Last Taken 07/30/21] omeprazole 20 mg capsule,delayed release 20 mg PO DAILY indigestion 10/31/19 [History Last Taken 07/30/21] potassium chloride 20 mEq tablet,extended release(part/cryst) 20 meq PO DAILY supplement 11/16/19 [History Last Taken 07/30/21] risperidone 1 mg tablet 2 mg PO QHS mood 11/16/19 [History Last Taken 07/29/21] clozapine 100 mg tablet 25 mg PO DAILY@0800 SCHIZOPHRENIA 07/30/21 [History Last Taken 07/30/21] clozapine 100 mg tablet 500 mg PO QHS SCHIZOPHRENIA 07/30/21 [History Last Taken 07/29/21] empagliflozin 10 mg tablet (Jardiance) 10 mg PO DAILY 07/30/21 [History Last Taken 07/30/21] furosemide 20 mg tablet 20 mg PO DAILY FLUID 07/30/21 [History Last Taken 07/30/21] insulin glargine 100 unit/mL (3 mL) subcutaneous pen (Lantus Solostar U-100 Insulin) 40 unit subcut DAILY@1600 DM 07/30/21 [History Last Taken 07/30/21] metoprolol succinate 25 mg tablet,extended release 24 hr 25 mg PO QHS 07/30/21 [History Last Taken 07/29/21] psyllium 1 packet PO QHS SUPPLEMENT 07/30/21 [History Last Taken 07/29/21] clonazepam 0.5 mg tablet 0.5 mg PO TID 06/05/22 [History Last Taken Unknown] ferrous sulfate 325 mg (65 mg iron) tablet (Feosol) 325 mg PO BID 06/05/22 [History Last Taken Unknown] glipizide 5 mg tablet 5 mg PO DAILY 06/05/22 [History Last Taken Unknown] metformin 500 mg tablet 500 mg PO BID 06/05/22 [History Last Taken Unknown] pramipexole 0.5 mg tablet 0.5 mg PO QHS 06/05/22 [History Last Taken Unknown] pravastatin 20 mg tablet 20 mg PO DAILY 06/05/22 [History Last Taken Unknown] Allergy/AdvReac Type Severity Reaction Status Date / Time No Known Allergies Allergy Verified 08/14/23 17:01 Family History (Updated 08/14/23 @ 21:[address] Amy Moreno MD) Mother Heart disease Hypertension Father COPD (chronic obstructive pulmonary disease) Cancer Surgical History (Updated 08/14/23 @ 21:[address] Amy Moreno MD) History of cholecystectomy History of mandibular surgery Social History (Updated 08/14/23 @ 21:[address] Amy Moreno MD) housing: other details: care home. Smoking Status: Former smoker how long ago did patient quit smoking: Quit 10 years prior to 08/14/23 presentation, 2 ppd since teen until quit. alcohol intake: never substance use type: does not use ROS ROS Narrative Admission Review of Systems: CONSTITUTIONAL: No weight loss, + fever, chills, weakness or fatigue. HEENT: + Nasal congestion, rhinorrhea. Eyes: No visual loss, blurred vision, double vision or yellow sclerae. Ears, Nose, Throat: No hearing loss, sneezing. SKIN: No rash or itching, lesions, wounds. CARDIOVASCULAR: No chest pain, chest pressure or chest discomfort, palpitations, edema, orthopnea, syncopal events. RESPIRATORY: + shortness of breath, cough without marked sputum, wheezing. No hemoptysis. GASTROINTESTINAL: + anorexia. No nausea, vomiting or diarrhea, abdominal pain, melena, BRBPR. GENITOURINARY: No dysuria, frequency, urgency or retention. NEUROLOGICAL: No headache, dizziness, syncope, paralysis, ataxia, numbness or tingling in the extremities, focal weakness, change in bowel or bladder control, seizure. MUSCULOSKELETAL: + muscle, back pain, joint pain or stiffness. HEMATOLOGIC: + anemia. No bleeding or bruising. LYMPHATICS: No enlarged nodes. No history of splenectomy. PSYCHIATRIC: + history of depression and anxiety/schizophrenia. ENDOCRINOLOGIC: + reports of sweating, cold or heat intolerance. No polyuria or polydipsia. ALLERGIES: + rhinitis. Vital Signs Vital Signs Vital Signs: 08/14/23 17:02 08/14/23 17:06 08/14/23 17:30 Temperature 97.4 F L 97.4 F L Temperature Source Temporal Temporal Pulse Rate 117 H 116 H Respiratory Rate 29 H 28 H Respiratory Effort Normal Respiratory Depth Normal Respiratory Pattern Normal Blood Pressure 140/85 H 137/79 H Blood Pressure Mean 103 98 Pulse Ox 95 94 Oxygen Delivery Method Room Air Room Air Room Air 08/14/23 18:11 08/14/23 18:29 08/14/23 19:24 Temperature Temperature Source Pulse Rate 114 H 112 H Respiratory Rate 18 26 H Respiratory Effort Respiratory Depth Respiratory Pattern Blood Pressure 117/69 Blood Pressure Mean 85 Pulse Ox 94 Oxygen Delivery Method Room Air Room Air Weight Weight: 177 lb 11.081 oz Body Mass Index (BMI) 33.5 Physical Exam Narrative Physical Examination: General: Awake, alert, oriented to self, place and recent events, remains cooperative, laying flat on her side in the ED bed, fatigued and ill-appearing, no evidence of respiratory distress. Skin: Normal color, normal turgor, no icterus, no cyanosis. HEENT: AT/NC, EOMI, PERRLA, mildly dry MM, no carotid bruits or JVD noted; however, thickened neck makes evaluation difficult. Lungs: Diminished, greater bases, occasional end expiratory wheeze, coughing elicited with deep inspiratory effort, no obvious rales or rhonchi. Heart: Mildly tachycardic with regular rhythm; no gallop, rub audible. Abdomen: Soft, obese, NTTP, mildly hyperactive BS, no obvious distention or HSM appreciated however difficult given habitus. Extremities: No cyanosis, no clubbing, mild peripheral ankle not markedly pitting edema. Neurological: Patient awake, alert, oriented as noted, cognitive function s uspect baseline intact; pupils equally reactive to light and accommodation, cranial nerves grossly normal, moving all 4 extremities, no focal deficits, strength moderately to severely global decrease secondary to acute complaints. Psychiatric: Affect appears flat, fatigued, ill-appearing, no acute evidence of depressive or anxiety feelings but does have notable underlying history. Results Lab / Micro Data 08/14/23 18:20 08/14/23 18:20 Labs: Laboratory Results - last 24 hr 08/14/23 18:20: WBC 13.2 H, RBC 4.85, Hgb 14.0, Hct 44.0, MCV 90.7, MCH 28.9, MCHC 31.8 L, RDW Std Deviation 44.6 H, RDW Coeff of Tyesha 13.4, Plt Count 182, MPV 10.7, Immature Gran % (Auto) 0.400, Neut % (Auto) 79.4 H, Lymph % (Auto) 12.3 L, [place] % (Auto) 7.5, Eos % (Auto) 0.0, Baso % (Auto) 0.4, Absolute Neuts (auto) 10.5 H, Absolute Lymphs (auto) 1.62, Nucleated RBC % 0, Sodium 137, Potassium 3.8, Chloride 102, Carbon Dioxide 26.0, Anion Gap 9, BUN 15, Creatinine 0.68, Estim Creat Clear Calc 67.22, Est GFR (MDRD) Af Amer 114, Est GFR (MDRD) Non-Af 94, BUN/Creatinine Ratio 22.2 H, Glucose 153 H, Calcium 9.2, Total Bilirubin 0.70, AST 50 H, ALT 72 H, Alkaline Phosphatase 150 H, Troponin I High Sens < 3 L , B-Natriuretic Peptide 2.9, Total Protein 8.0, Albumin 3.8, Globulin 4.2, Albumin/Globulin Ratio 0.9 Micro: Microbiology 08/14/23 18:20 Nasal Secretion SARS-CoV-2 & FLU Antigen (Rapid) - Final Radiology Impression Chest X-Ray 08/14/23 18:11 IMPRESSION: Mild interstitial edema or infiltrates. Electronically Signed: Luis Camilo MD at 19:05 EDT , Assessment & Plan Assessment/Plan (1) COPD exacerbation: PLAN: Plan The patient is a 57 y/o F w/ PMHx: GERD, RLS, Chronic transaminitis/elevated alk phos, LIDA on CPAP, HTN, HLD, Anxiety and Depression/Schizophrenia unclear type, COPD w/ prior Chronic Hypoxic Respiratory Failure (3L NC) reported in her chart but currently upon presentation not using supplementation, Diabetes mellitus type II, Former Heavy Tobacco use, Obesity who presents to the [facility] ED on 08/14/23 with history of 3 to 4 days of upper respiratory type symptoms including nasal congestion, rhinorrhea in addition to fever, chills, body aches as well as not markedly productive cough with wheezing not improving with worsening dyspnea sensation prompting eventual correction transition to the ED for evaluation. #1. Acute on Chronic COPD exacerbation w/ associated hypoxia, previous chart reported history of chronic hypoxic respiratory failure documented as using 3 L nasal cannula however this is remotely with visits in between noted to be on room air: CXR w/ mild interstitial edema or infiltrates however patient BNP not marked appearing, afebrile although does have white count and a left shift, will admit to medical surgical floor given stable vital signs, continue oxygen s upplementation with wean as able, maintain on ATC DuoNeb therapy, as needed albuterol, IV Solu-Medrol, head of bed, I-S parameters, will obtain sputum culture, full respiratory viral panel, procalcitonin and will hold off on immediate antibiotic therapy as certainly chest x-ray could be with a viral illness as well, if there is any indication of a bacterial etiology low threshold to add antibiotics. We will repeat chest x-ray in a.m. to assure not worsening. #2. Chronic mild transaminitis, elevated alk phos: Admission CMP with AST/LT 50/72, alk phos 150, patient with similar levels previously, appears chronic, unclear specific etiology, encourage continued outpatient follow-up and assessm ent. #3. Anxiety and depression/schizophrenia unclear type: We will continue patient home psychiatric regimen including risperidone, clonazepam and clonazepam with recommended continued outpatient assessments and follow-up as previously arranged. #4. Diabetes mellitus type II: Hold oral home regimen, continue home insulin regimen, ADA diet, accu checks w/ ISS. #5. Hypertension: Continue home regimen including metoprolol, Lasix, PRN hydralazine. #6. Hyperlipidemia: We will continue patient on statin therapy. #7. Restless leg syndrome: We will continue patient home pramipexole regimen. #8. Obesity: Weight loss and lifestyle changes encouraged. #9. GERD: We will continue patient on PPI. #10. LIDA: CPAP nightly. #11. Former tobacco use: Encourage continued tobacco cessation. #12. DVT prophylaxis: Lovenox. #13. CODE STATUS: Full code. Charges/Coding Visit Charges Inpatient E&M: 60636 Init Hosp L3
[2023-08-14 23:06] LABS: Procalcitonin 0.12 ng/mL (0.00-0.09)
[2023-08-15] VITALS (15 sets, daily range): BP systolic 92–132; BP diastolic 57–85; PULSE 82–102; RESP 16–20; TEMP 36.4–36.8; O2SAT 86–95
[2023-08-15] MEDS: Furosemide 20 MG Tablet PO ×2 (00:47→10:33)
[2023-08-15] MEDS: guaiFENesin 1,200 MG Tablet 1200 MG PO ×3 (00:47→20:41)
[2023-08-15] MEDS: RisperiDONE 1 MG Tablet 2 MG PO (00:47)
[2023-08-15] MEDS: Pramipexole Di-HCl 0.5 MG Tablet PO ×2 (00:47→20:41)
[2023-08-15] MEDS: Psyllium 1 PACKET PO ×2 (00:48→20:41)
[2023-08-15] MEDS: Metoprolol(XL)Succ 25 MG Tablet PO ×2 (00:48→20:41)
[2023-08-15] MEDS: Insulin Lispro 100 UNIT/ML INSULN.PEN SC ×5 (01:06→20:41)
[2023-08-15] MEDS: clonazePAM 0.5 MG Tablet PO (01:06)
[2023-08-15] MEDS: 0.9% Saline Lock 10 ML Syringe IV ×3 (01:16→15:14)
[2023-08-15 01:45] LABS: Bedside Glucose 227 mg/dL (74-106)
--- NOTE | 2023-08-15 05:20 | RAD_ITS ---
EXAM: XR CHEST, 1 VIEW CLINICAL INDICATION: Dyspnea, cough TECHNIQUE: Frontal view of the chest. COMPARISON: XR Chest dated 08/14/2023 FINDINGS: LUNGS AND PLEURAL SPACES: Persistent mild thickening of the pulmonary interstitium. Linear densities within the lingula consistent with atelectasis. HEART: Normal heart size. MEDIASTINUM: No mediastinal or hilar mass. BONES/JOINTS: No acute abnormality. RAD/Chest 1 View (Portable) IMPRESSION: Persistent interstitial thickening which may represent edema or inflammatory change. Electronically Signed: Shoaib Arnett MD at 8:32 EDT ,
--- NOTE | 2023-08-15 06:11 | NURSING ---
Message left to legal guardian about pt home med list, legal guardian did not answer- this RN left voicemail to call back when convenient.
--- NOTE | 2023-08-15 06:28 | PN.HOSP_ITS ---
Hospitalist Note Resp panel with + rhino.
--- NOTE | 2023-08-15 06:28 | PCM.HOSP.N ---
Hospitalist Note Resp panel with + rhino.
[2023-08-15 07:09] LABS: Bedside Glucose 167 mg/dL (74-106)
[2023-08-15] MEDS: Ipratropium/Albuterol Sulfate 3 ML AMPUL.NEB INHALATION ×4 (07:16→20:24)
--- NOTE | 2023-08-15 07:27 | PN.HOSP_ITS ---
Reason for Visit Reason for Visit: Diagnoses Chronic obstructive pulmonary disease with (acute) exacerbation (08/14/23) Subjective Subjective Patient is a 57-year-old lady admitted with progressive shortness of breath diagnosed with COPD with acute exacerbation admitted to monitored bed for further management Objective Data Objective Data Vital Signs: Vital Signs Temp Pulse Resp BP Pulse Ox O2 Del Method O2 Flow Rate 98.2 F 82 18 92/57 L 94 Nasal Cannula 3 08/15/23 06:20 08/15/23 06:20 08/15/23 06:20 08/15/23 06:20 08/15/23 06:20 08/15/23 06:20 08/15/23 06:20 Oxygen Flow Rate (L/min) 3 Oxygen Delivery Method Nasal Cannula Weight: 77.7 kg Body Mass Index (BMI) 32.3 Intake & Output: Intake and Output for Last 24 Hours 08/13/23 08/14/23 08/15/23 23:59 23:59 23:59 Intake Total 1000 / 1000 500 / 500 Balance 1000 / 1000 500 / 500 Lab / Micro Data 08/15/23 06:55 08/15/23 06:55 Labs: Laboratory Results - last 24 hr 08/14/23 18:20: WBC 13.2 H, RBC 4.85, Hgb 14.0, Hct 44.0, MCV 90.7, MCH 28.9, MCHC 31.8 L, RDW Std Deviation 44.6 H, RDW Coeff of Tyesha 13.4, Plt Count 182, MPV 10.7, Immature Gran % (Auto) 0.400, Neut % (Auto) 79.4 H, Lymph % (Auto) 12.3 L, [place] % (Auto) 7.5, Eos % (Auto) 0.0, Baso % (Auto) 0.4, Absolute Neuts (auto) 10.5 H, Absolute Lymphs (auto) 1.62, Nucleated RBC % 0, Sodium 137, Potassium 3.8, Chloride 102, Carbon Dioxide 26.0, Anion Gap 9, BUN 15, Creatinine 0.68, Estim Creat Clear Calc 67.22, Est GFR (MDRD) Af Amer 114, Est GFR (MDRD) Non-Af 94, BUN/Creatinine Ratio 22.2 H, Glucose 153 H, Calcium 9.2, Total Bilirubin 0. 70, AST 50 H, ALT 72 H, Alkaline Phosphatase 150 H, Troponin I High Sens < 3 L, B-Natriuretic Peptide 2.9, Total Protein 8.0, Albumin 3.8, Globulin 4.2, Albumin/Globulin Ratio 0.9 08/14/23 22:13: Procalcitonin 0.12 H 08/15/23 01:03: POC Glucose 227 H 08/15/23 06:26: POC Glucose 167 H Micro: Microbiology 08/14/23 23:00 Mucosa - Nasopharyngeal Respiratory Panel (PCR) - Final Rhinovirus 08/14/23 18:20 Nasal Secretion SARS-CoV-2 & FLU Antigen (Rapid) - Final Radiography Diagnostic Testing: Radiology Impression Chest X-Ray 08/14/23 18:11 IMPRESSION: Mild interstitial edema or infiltrates. Electronically Signed: Luis Camilo MD at 19:05 EDT , Physical Exam Narrative GENERAL: cooperative HEENT: Atraumatic; normocephalic EYES; Anicteric, Normal Conjunctiva NECK; supple, normal thyroid, RESPIRATORY: Diminished to auscultation CARDIOVASCULAR: Regular S1 S2, GI: soft, normoactive bowel sounds, : No Renal angle tenderness; EXTREMITIES: No edema, no clubbing, MUSCULOSKELETAL: no muscle wasting NEURO: Awake; no lateralizing signs. SKIN: No Rash PSYCH; Flat affect Assessment & Plan Assessment/Plan (1) COPD exacerbation: PLAN: Plan Patient is a 57-year-old lady admitted with progressive shortness of breath diagnosed with COPD with acute exacerbation admitted to monitored bed for further management 1. COPD with acute exacerbation ?Managed with aerosol treatment and steroid as well as antibiotics in addition to supplemental oxygen. 2. Dyslipidemia -Patient is on statin therapy, continued at home dose 3. Diabetes mellitus type II -patient's oral hypoglycemics held. Placed on long acting insulin, Accu-Cheks a.c. and at bedtime and covered with sliding scale insulin 4. Anxiety attack ? is on Klonopin 5. Chronic diastolic congestive heart failure - stable 6. Obstructive sleep apnea - patient is on CPAP at night 7. Schizophrenia - currently stable did continue patient psychotropic medications 8. Dyslipidemia -patient is on statin therapy, continued at home dose 9. Obesity with BMI of 32.4 -weight loss advised 10. DVT prophylaxis -SC Lovenox Time spent in the patient's overall evaluation,decision-making process, review of diagnostic data, adjustment of management, discussion with other providers, nursing nursing and ancillary staff involved in patient's care documentation, 40 minutes Charges/Coding Visit Charges Inpatient E&M: 30675 Subs Hosp L2
[2023-08-15 07:36] LABS: Absolute Neutrophil Count 11.8 X10^3/uL (2.0-7.7); Basophil# 0.01 X10^3/uL; Basophil% 0.1 % (0-1); Hematocrit 41.3 % (37-47); Hemoglobin 13.3 g/dL (12.0-15.0); Lymphocyte % 11.1 % (19-41); Mean Corp Hgb Conc 32.2 g/dL (32-36); Mean Corpuscular Hgb 29.4 pg (27.0-32.0); Mean Corpuscular Volume 91.2 fL (81-99); Mean Platelet Vol. 10.9 fl (6.2-12.0); Monocyte# 0.22 X10^3/uL; Monocyte% 1.6 % (0-10); NRBC Flagged by Analyzer 0 % (0-5); Neutrophil # 11.78 X10^3/uL (2.7-7.7); Neutrophil % 86.8 % (47-70); Platelet Count 180 K/mm3 (150-450); RBC Distribution Width CV 13.5 % (11.6-14.6); RBC Distribution Width SD 44.7 fl (35.1-43.9); Red Blood Count 4.53 M/mm3 (4.2-5.4); White Blood Count 13.6 K/mm3 (4.4-11.0)
[2023-08-15 08:01] LABS: ALB/GLOB Ratio 0.7 RATIO (0.9-2.4); AST(SGOT) 32 U/L (15-37); Alanine Aminotransfer ALT/SGPT 75 U/L (13-56); Albumin, Serum 3.2 g/dL (3.2-5.0); Alkaline Phosphatase 148 U/L (45-117); Anion Gap 8 (5-15); BUN 13 mg/dL (7-18); BUN/Creat Ratio 30.7 RATIO (10-20); Calcium,Total 8.6 mg/dL (8.5-10.1); Chloride 105 mmol/L (98-107); Creatinine, Serum 0.42 mg/dL (0.55-1.02); EST Glomerular Filtration Rate 162 mL/min (>60); Est Glom Filt Rate - Afr Amer 196 mL/min (>60); Estimated Creatinine Clearance 108.83 ml/min; Globulin 4.3 g/dL (2.2-4.2); Glucose 161 mg/dL (74-106); Potassium 3.3 mmol/L (3.5-5.1); Protein, Total 7.5 g/dL (6.4-8.2); Sodium Level 137 mmol/L (136-145)
--- NOTE | 2023-08-15 09:19 | CASEMGMT ---
Patient is from a alf. JONNY called patient's case mgr, Leola at [facility] and left a message requesting a return call. Patient has been at [facility] in the past and when patient needed O2 at discharge the alf could not take patient back while on O2. Patient had to go go a SNF at d/c at that time. JONNY will check with Leola to see if it is still the same. Jannette Toth HEAD SCREEN WORKER DONNIE
--- NOTE | 2023-08-15 09:39 | CASEMGMT ---
JONNY received a [facility] and she confirmed [facility] if she is on O2. Leola also asked JONNY to notify her as soon as JONNY has an update on whether or not patient will need O2 as she would like to work with patient's Glass Crusher on this. Jannette Toth CHEMICAL PROCESSOR DONNIE
[2023-08-15] MEDS: Ferrous Sulfate 325 MG Tablet PO ×2 (10:33→17:11)
[2023-08-15] MEDS: Enoxaparin 40 MG/0.4 ML Syringe SC (10:33)
[2023-08-15] MEDS: Aspirin 81 MG TAB.CHEW PO (10:33)
[2023-08-15] MEDS: Menthol/Lanolin/Calamine/Znox 113 GM Tube 1 APPLIC TOPICAL (10:34)
[2023-08-15] MEDS: Potassium Chloride Oral Tablet 20 MEQ PO (10:34)
[2023-08-15 12:10] LABS: Bedside Glucose 248 mg/dL (74-106)
[2023-08-15] MEDS: Benztropine Mesylate 0.5 MG TABLET PO ×2 (12:59→20:40)
[2023-08-15] MEDS: cloZAPine 100 MG TABLET PO ×3 (12:59→20:40)
--- NOTE | 2023-08-15 14:34 | CASEMGMT ---
JONNY called Leola patient's supervisor case loading at [facility]. JONNY left her a voice mail requesting a phone call regarding transportation for patient back to the residential. Jannette FIELDS
[2023-08-15] MEDS: Pantoprazole Sodium 20 MG Tablet PO (15:14)
[2023-08-15] MEDS: Potassium Chloride Oral Tablet 20 MEQ 40 MEQ PO (15:14)
[2023-08-15] MEDS: Insulin Glargine-YFGN 100 UNIT/ML Pen 40 UNIT SC (17:10)
[2023-08-15 17:21] LABS: Bedside Glucose 186 mg/dL (74-106)
[2023-08-15 20:35] LABS: Bedside Glucose 265 mg/dL (74-106)
[2023-08-15] MEDS: Glycerin/Hypromellose/PEG400 15 ml Bottle 1 DRP EACH EYE (20:40)
[2023-08-15] MEDS: MELATONIN 3 MG TABLET PO (20:41)
[2023-08-15] MEDS: clonazePAM 1 MG Tablet PO (20:41)
[2023-08-15] MEDS: Atorvastatin Calcium 10 MG Tablet PO (20:41)
[2023-08-15] MEDS: Haloperidol 1 MG Tablet 2 MG PO (20:41)
[2023-08-15] MEDS: Pravastatin 20 MG Tablet PO (20:43)
[2023-08-16] VITALS (7 sets, daily range): BP systolic 109–131; BP diastolic 61–84; PULSE 81–96; RESP 16–19; TEMP 36.1–36.7; O2SAT 90–99; BMI 31.6
--- NOTE | 2023-08-16 01:49 | CPS ---
Pt is on sleep lab machine with a full face mask as pt wears at home. 2L bled in temporarily.
[2023-08-16] MEDS: Insulin Lispro 100 UNIT/ML INSULN.PEN SC ×2 (06:06→11:35)
[2023-08-16 06:25] LABS: Bedside Glucose 183 mg/dL (74-106)
--- NOTE | 2023-08-16 07:08 | PN.HOSP_ITS ---
Reason for Visit Reason for Visit: Diagnoses Chronic obstructive pulmonary disease with (acute) exacerbation (08/14/23) Subjective Subjective Patient seen breathing much improved. Patient back to baseline plan is for patient to be assessed for possible disc Objective Data Objective Data Vital Signs: Vital Signs Temp Pulse Resp BP Pulse Ox O2 Del Method O2 Flow Rate 97.8 F 87 18 131/84 H 95 CPAP 3 08/16/23 03:00 08/16/23 03:00 08/16/23 03:00 08/16/23 03:00 08/16/23 03:00 08/16/23 03:00 08/15/23 22:07 Oxygen Flow Rate (L/min) 3 Oxygen Delivery Method CPAP Weight: 76 kg Body Mass Index (BMI) 31.6 Intake & Output: Intake and Output for Last 24 Hours 08/14/23 08/15/23 08/16/23 23:59 23:59 23:59 Intake Total 1000 / 1000 2100 / 2500 400 / 400 Balance 1000 / 1000 2100 / 2500 400 / 400 Lab / Micro Data 08/16/23 07:59 08/16/23 07:59 Labs: Laboratory Results - last 24 hr 08/15/23 06:26: POC Glucose 167 H 08/15/23 06:55: WBC 13.6 H, RBC 4.53, Hgb 13.3, Hct 41.3, MCV 91.2, MCH 29.4, MCHC 32.2, RDW Std Deviation 44.7 H, RDW Coeff of Tyesha 13.5, Plt Count 180, MPV 10.9, Immature Gran % (Auto) 0.400, Neut % (Auto) 86.8 H, Lymph % (Auto) 11.1 L, [place] % (Auto) 1.6, Eos % (Auto) 0.0, Baso % (Auto) 0.1, Absolute Neuts (auto) 11.8 H, Absolute Lymphs (auto) 1.50, Nucleated RBC % 0, Sodium 137, Potassium 3.3 L, Chloride 105, Carbon Dioxide 24.0, Anion Gap 8, BUN 13, Creatinine 0.42 L , Estim Creat Clear Calc 108.83, Est GFR (MDRD) Af Amer 196, Est GFR (MDRD) Non- Af 162, BUN/Creatinine Ratio 30.7 H, Glucose 161 H, Calcium 8.6, Total Bilirubin 0.70, AST 32, ALT 75 H, Alkaline Phosphatase 148 H, Total Protein 7.5, Albumin 3.2, Globulin 4.3 H, Albumin/Globulin Ratio 0.7 L 08/15/23 11:50: POC Glucose 248 H 08/15/23 17:00: POC Glucose 186 H 08/15/23 20:16: POC Glucose 265 H 08/16/23 06:04: POC Glucose 183 H Micro: Microbiology 08/14/23 23:00 Mucosa - Nasopharyngeal Respiratory Panel (PCR) - Final Rhinovirus 08/14/23 18:20 Nasal Secretion SARS-CoV-2 & FLU Antigen (Rapid) - Final Radiography Diagnostic Testing: Radiology Impression Chest X-Ray 08/15/23 05:20 IMPRESSION: Persistent interstitial thickening which may represent edema or inflammatory change. Electronically Signed: Shoaib Arnett MD at 8:32 EDT , Physical Exam Narrative GENERAL: cooperative HEENT: Atraumatic; normocephalic EYES; Anicteric, Normal Conjunctiva NECK; supple, normal thyroid, RESPIRATORY: Diminished to auscultation CARDIOVASCULAR: Regular S1 S2, GI: soft, normoactive bowel sounds, : No Renal angle tenderness; EXTREMITIES: No edema, no clubbing, MUSCULOSKELETAL: no muscle wasting NEURO: Awake; no lateralizing signs. SKIN: No Rash PSYCH; Flat affect Assessment & Plan Assessment/Plan (1) COPD exacerbation: PLAN: Plan Patient is a 57-year-old lady admitted with progressive shortness of breath diagnosed with COPD with acute exacerbation admitted to monitored bed for further management 1. COPD with acute exacerbation ?Managed with aerosol treatment and steroid as well as antibiotics in addition to supplemental oxygen. ? 08/16/2023 patient back to baseline 2. Dyslipidemia -Patient is on statin therapy, continued at home dose 3. Diabetes mellitus type II -patient's oral hypoglycemics held. Placed on long acting insulin, Accu-Cheks a.c. and at bedtime and covered with sliding scale insulin 4. Anxiety attack ? is on Klonopin 5. Chronic diastolic congestive heart failure - stable 6. Obstructive sleep apnea - patient is on CPAP at night 7. Schizophrenia - currently stable did continue patient psychotropic medications 8. Dyslipidemia -patient is on statin therapy, continued at home dose 9. Obesity with BMI of 32.4 -weight loss advised 10. DVT prophylaxis -SC Lovenox Time spent in the patient's overall evaluation,decision-making process, review of diagnostic data, adjustment of management, discussion with other providers, nursing nursing and ancillary staff involved in patient's care documentation, 40 minutes Charges/Coding Visit Charges Inpatient E&M: 28117 Subs Hosp L2
[2023-08-16] MEDS: Ipratropium/Albuterol Sulfate 3 ML AMPUL.NEB INHALATION ×2 (07:22→10:47)
[2023-08-16 08:21] LABS: Absolute Neutrophil Count 12.8 X10^3/uL (2.0-7.7); Basophil# 0.03 X10^3/uL; Basophil% 0.2 % (0-1); Hematocrit 41.5 % (37-47); Hemoglobin 13.1 g/dL (12.0-15.0); Lymphocyte % 12.7 % (19-41); Mean Corp Hgb Conc 31.6 g/dL (32-36); Mean Corpuscular Hgb 29.2 pg (27.0-32.0); Mean Corpuscular Volume 92.4 fL (81-99); Mean Platelet Vol. 11.2 fl (6.2-12.0); Monocyte# 0.73 X10^3/uL; Monocyte% 4.6 % (0-10); NRBC Flagged by Analyzer 0 % (0-5); Neutrophil # 12.84 X10^3/uL (2.7-7.7); Neutrophil % 81.8 % (47-70); Platelet Count 220 K/mm3 (150-450); RBC Distribution Width CV 13.5 % (11.6-14.6); Red Blood Count 4.49 M/mm3 (4.2-5.4); White Blood Count 15.7 K/mm3 (4.4-11.0)
[2023-08-16 08:33] LABS: Anion Gap 9 (5-15); BUN 16 mg/dL (7-18); BUN/Creat Ratio 31.3 RATIO (10-20); Calcium,Total 8.9 mg/dL (8.5-10.1); Chloride 107 mmol/L (98-107); Creatinine, Serum 0.51 mg/dL (0.55-1.02); EST Glomerular Filtration Rate 131 mL/min (>60); Est Glom Filt Rate - Afr Amer 158 mL/min (>60); Estimated Creatinine Clearance 89.62 ml/min; Glucose 173 mg/dL (74-106); Magnesium 2.4 mg/dL (1.6-2.6); Phosphorus 3.1 mg/dL (2.5-4.9); Potassium 4.2 mmol/L (3.5-5.1); Sodium Level 140 mmol/L (136-145)
[2023-08-16] MEDS: Menthol/Lanolin/Calamine/Znox 113 GM Tube 1 APPLIC TOPICAL (09:42)
[2023-08-16] MEDS: Aspirin 81 MG TAB.CHEW PO (09:42)
[2023-08-16] MEDS: Ferrous Sulfate 325 MG Tablet PO (09:42)
[2023-08-16] MEDS: clonazePAM 1 MG Tablet PO (09:43)
[2023-08-16] MEDS: Potassium Chloride Oral Tablet 20 MEQ PO (09:43)
[2023-08-16] MEDS: Furosemide 20 MG Tablet PO (09:43)
[2023-08-16] MEDS: cloZAPine 100 MG TABLET PO (09:43)
[2023-08-16] MEDS: Enoxaparin 40 MG/0.4 ML Syringe SC (09:44)
[2023-08-16] MEDS: Pantoprazole Sodium 20 MG Tablet PO (09:44)
--- NOTE | 2023-08-16 10:11 | DS.PCM_ITS ---
Providers Date of Admission: 08/14/23 Date of Discharge: 08/16/23 Primary Care Physician: Dr. Boris Vance MD Reason For Visit: COPD EXACERBATION, HYPOXIA Diagnosis Discharge Diagnosis (1) COPD exacerbation: Status: Chronic Code(s): J44.1 - Chronic obstructive pulmonary disease with (acute) exacerbation Plan Patient is a 57-year-old lady admitted with progressive shortness of breath diagnosed with COPD with acute exacerbation admitted to monitored bed for further management 1. COPD with acute exacerbation ?Managed with aerosol treatment and steroid as well as antibiotics in addition to supplemental oxygen. ? 08/16/2023 patient back to baseline 2. Dyslipidemia -Patient is on statin therapy, continued at home dose 3. Diabetes mellitus type II -patient's oral hypoglycemics held. Placed on long acting insulin, Accu-Cheks a.c. and at bedtime and covered with sliding scale insulin 4. Anxiety attack ? is on Klonopin 5. Chronic diastolic congestive heart failure - stable 6. Obstructive sleep apnea - patient is on CPAP at night 7. Schizophrenia - currently stable did continue patient psychotropic medications 8. Dyslipidemia -patient is on statin therapy, continued at home dose 9. Obesity with BMI of 32.4 -weight loss advised 10. DVT prophylaxis -SC Lovenox Medications at Discharge Home Medications cholecalciferol (vitamin D3) 25 mcg (1,000 unit) capsule (Vitamin D3) 1,000 unit PO DAILY SUPPLEMENT 10/17/17 aspirin 325 mg tablet,delayed release 325 mg PO DAILY@1600 heart health 07/22/18 omeprazole 20 mg capsule,delayed release 20 mg PO DAILY indigestion 10/31/19 potassium chloride 20 mEq tablet,extended release(part/cryst) 20 meq PO DAILY supplement 11/16/19 clozapine 100 mg tablet 100 mg PO 4X/DAY SCHIZOPHRENIA 07/30/21 empagliflozin 10 mg tablet (Jardiance) 10 mg PO DAILY diabetes 07/30/21 furosemide 20 mg tablet 20 mg PO DAILY FLUID 07/30/21 insulin glargine 100 unit/mL (3 mL) subcutaneous pen (Lantus Solostar U-100 Insulin) 48 unit subcut DAILY@1600 DM 07/30/21 metoprolol succinate 25 mg tablet,extended release 24 hr 25 mg PO QHS HTN 07/30/21 clonazepam 0.5 mg tablet 1 mg PO BID schizophrenia 06/05/22 ferrous sulfate 325 mg (65 mg iron) tablet (Feosol) 325 mg PO .BID with meals anemia 06/05/22 pramipexole 0.5 mg tablet 0.25 mg PO QHS restless legs 06/05/22 atorvastatin 10 mg tablet 10 mg PO DAILY Cholesterol 08/14/23 guaifenesin 1,200 mg tablet, extended release 12 hr (Mucus Relief ER) 1,200 mg PO DAILY congestion 08/14/23 haloperidol 2 mg tablet 2 mg PO QHS anxiety 08/14/23 metformin 500 mg tablet,extended release 24 hr 1,000 mg PO BID Diabetes 08/14/23 benztropine 0.5 mg tablet 0.5 mg PO BID tremors 08/15/23 doxycycline hyclate 100 mg tablet 100 mg PO BID 7 days #14 tabs 08/16/23 guaifenesin 1,200 mg tablet, extended release 12 hr (Mucus Relief ER) 1,200 mg PO BID #20 tabs 08/16/23 prednisone 20 mg tablet 20 mg PO BID #14 tabs 08/16/23 Hospital Course Summary of Care Provided Minutes Spent on Discharge: 40 Physical Exam Narrative GENERAL: cooperative HEENT: Atraumatic; normocephalic EYES; Anicteric, Normal Conjunctiva NECK; supple, normal thyroid, RESPIRATORY: Diminished to auscultation CARDIOVASCULAR: Regular S1 S2, GI: soft, normoactive bowel sounds, : No Renal angle tenderness; EXTREMITIES: No edema, no clubbing, MUSCULOSKELETAL: no muscle wasting NEURO: Awake; no lateralizing signs. SKIN: No Rash PSYCH; Flat affect Weight / BMI Weight Weight: 76 kg Body Mass Index (BMI) 31.6 ABG / Lab / Microbiology Data 08/16/23 07:59 08/16/23 07:59 Laboratory: Laboratory Results - last 24 hr 08/15/23 11:50: POC Glucose 248 H 08/15/23 17:00: POC Glucose 186 H 08/15/23 20:16: POC Glucose 265 H 08/16/23 06:04: POC Glucose 183 H 08/16/23 07:59: WBC 15.7 H, RBC 4.49, Hgb 13.1, Hct 41.5, MCV 92.4, MCH 29.2, MCHC 31.6 L, RDW Std Deviation 46.0 H, RDW Coeff of Tyesha 13.5, Plt Count 220, MPV 11.2, Immature Gran % (Auto) 0.700, Neut % (Auto) 81.8 H, Lymph % (Auto) 12.7 L, [place] % (Auto) 4.6, Eos % (Auto) 0.0, Baso % (Auto) 0.2, Absolute Neuts (auto) 12.8 H, Absolute Lymphs (auto) 2.00, Nucleated RBC % 0, Sodium 140, Potassium 4.2, Chloride 107, Carbon Dioxide 24.0, Anion Gap 9, BUN 16, Creatinine 0.51 L, Estim Creat Clear Calc 89.62, Est GFR (MDRD) Af Amer 158, Est GFR (MDRD) Non-Af 131, BUN/Creatinine Ratio 31.3 H, Glucose 173 H, Calcium 8.9, Phosphorus 3.1, Magnesium 2.4 Microbiology: Microbiology 08/14/23 23:00 Mucosa - Nasopharyngeal Respiratory Panel (PCR) - Final Rhinovirus 08/14/23 18:20 Nasal Secretion SARS-CoV-2 & FLU Antigen (Rapid) - Final D/C Instructions Discharge Diet: No restrictions Discharge Activity: Return to Normal Activity Call your doctor if you observe: Fever of 101 or Higher, Shortness of breath, Fainting spells and Chest pain Meaningful Use Info Meaningful Use Diagnoses (Choose all that apply): None applicable Discharge Plan Admission Admit Date/Time: 08/14/23 21:50 Attending Provider: Lauro Noguera Primary Care Provider: Boris Vance Consulting Providers: Amy Moreno Discharge Orders/Prescriptions Prescriptions: New doxycycline hyclate 100 mg tablet 100 mg PO BID 7 Days Qty: 14 0RF prednisone 20 mg tablet 20 mg PO BID Qty: 14 0RF guaifenesin [Mucus Relief ER] 1,200 mg tablet extended release 12hr 1,200 mg PO BID Qty: 20 0RF Continued cholecalciferol (vitamin D3) [Vitamin D3] 1,000 UNIT capsule 1,000 unit PO DAILY aspirin 325 MG tablet,delayed release (DR/EC) 325 mg PO DAILY@1600 omeprazole 20 MG capsule,delayed release(DR/EC) 20 mg PO DAILY potassium chloride 20 MEQ tablet 20 meq PO DAILY metoprolol succinate 25 mg Tablet Extended Release 24 Hr 25 mg PO QHS Jardiance 10 mg Tablet 10 mg PO DAILY furosemide 20 mg tablet 20 mg PO DAILY insulin glargine [Lantus Solostar U-100 Insulin] 100 unit/mL (3 mL) insulin pen 48 unit SUBCUT DAILY@1600 clozapine 100 MG tablet 100 mg PO 4X/DAY clonazepam 0.5 mg Tablet 1 mg PO BID pramipexole 0.5 mg Tablet 0.25 mg PO QHS Rx Instructions: Take half table PO at bedtime ferrous sulfate [Feosol] 325 mg (65 mg iron) Tablet 325 mg PO .BID with meals metformin 500 mg tablet extended release 24 hr 1,000 mg PO BID haloperidol 2 mg tablet 2 mg PO QHS guaifenesin [Mucus Relief ER] 1,200 mg tablet extended release 12hr 1,200 mg PO DAILY atorvastatin 10 mg tablet 10 mg PO DAILY benztropine 0.5 mg tablet 0.5 mg PO BID Referrals / Follow Up: Boris Vance MD [Primary Care Provider] - Disposition Disposition (needs filled in before D/C Order can be placed): Home, Self Care Charges/Coding Visit Charges Inpatient E&M: 96629 Disch Hosp >30min
[2023-08-16] MEDS: guaiFENesin 1,200 MG Tablet 1200 MG PO (11:35)
[2023-08-16] MEDS: Benztropine Mesylate 0.5 MG TABLET PO (11:36)
[2023-08-16 11:58] LABS: Bedside Glucose 206 mg/dL (74-106)
--- NOTE | 2023-08-16 13:00 | CASEMGMT ---
Social Work SW spoke w/nursing, pt does not need home O2, [facility]. SW spoke w/pt's insurance case manager from [facility], Leola Jaime. She will call the [facility] to have someone come get pt, and she will let pt's guardian know as well. Pt to be [facility] to the [facility]. MATTHEW Meyer
== END 2023-08-16 13:25 | disposition home or self-care (01) | DRG 191 ==
LOC: ED 21:37 → PCU 22:21
PROVIDERS: Admitting Provider Family Medicine; Emergency Provider Student in an Organized Health Care Education/Training Program; PCP Family Medicine; Visit Provider Internal Medicine
DX: J44.1 Chronic obstructive pulmonary disease with (acute) exacerbation (principal); I50.32 Chronic diastolic (congestive) heart failure; I11.0 Hypertensive heart disease with heart failure; E11.9 Type 2 diabetes mellitus without complications; F20.9 Schizophrenia, unspecified; Z79.4 Long term (current) use of insulin; G25.81 Restless legs syndrome; G47.33 Obstructive sleep apnea (adult) (pediatric); E78.5 Hyperlipidemia, unspecified; K21.9 Gastro-esophageal reflux disease without esophagitis; E66.9 Obesity, unspecified; R09.02 Hypoxemia; Z87.891 Personal history of nicotine dependence; Z79.82 Long term (current) use of aspirin; Z68.32 Body mass index [BMI] 32.0-32.9, adult; Z99.89 Dependence on other enabling machines and devices
CPT/HCPCS: 36415; 71045; 80048; 80053; 82962; 83735; 83880; 84100; 84145; 84484; 85025; 87428; 87633; 93005; 94640; 94660; 94668; 99285; J7030; A4216

== ENCOUNTER 2023-08-19 10:31 | Outpatient (RCR) | payer MEDICARE, MEDICAID, SELFPAY ==
[2023-08-12 22:56] VITALS: BMI 36.6
[2023-08-19 11:18] LABS: Absolute Lymphocyte Count 2.06 X10^3/uL (0.83-4.51); Basophil# 0.07 X10^3/uL; Basophil% 0.4 % (0-1); Eosinophil# 0.55 X10^3/uL; Eosinophils% 3.3 % (0-5); Hematocrit 45.5 % (37-47); Hemoglobin 14.7 g/dL (12.0-15.0); Lymphocyte # 2.06 X10^3/ul (0.83-4.51); Lymphocyte % 12.5 % (19-41); Mean Corp Hgb Conc 32.3 g/dL (32-36); Mean Corpuscular Volume 89.7 fL (81-99); Mean Platelet Vol. 11.3 fl (6.2-12.0); Monocyte# 0.55 X10^3/uL; Monocyte% 3.3 % (0-10); NRBC Flagged by Analyzer 0 % (0-5); Neutrophil # 13.01 X10^3/uL (2.7-7.7); Neutrophil % 79.2 % (47-70); Platelet Count 256 K/mm3 (150-450); RBC Distribution Width CV 13.1 % (11.6-14.6); RBC Distribution Width SD 42.5 fl (35.1-43.9); Red Blood Count 5.07 M/mm3 (4.2-5.4); White Blood Count 16.5 K/mm3 (4.4-11.0)
== END 2023-09-11 18:00 | disposition home or self-care (01) ==
LOC: LAB 10:31
PROVIDERS: Family Provider Family Medicine; PCP Family Medicine; Referring Provider Psychiatry & Neurology Psychiatry; Visit Provider Psychiatry & Neurology Psychiatry
DX: Z79.899 Other long term (current) drug therapy (principal)
CPT/HCPCS: 36415; 85025

== ENCOUNTER 2023-09-17 08:54 | Outpatient (RCR) | payer MEDICARE, MEDICAID, SELFPAY ==
[2023-09-12 03:19] VITALS: BMI 36.6
[2023-09-17 10:03] LABS: Absolute Lymphocyte Count 1.96 X10^3/uL (0.83-4.51); Absolute Neutrophil Count 4.6 X10^3/uL (2.0-7.7); Basophil# 0.04 X10^3/uL; Basophil% 0.6 % (0-1); Hematocrit 43.9 % (37-47); Hemoglobin 13.8 g/dL (12.0-15.0); Lymphocyte # 1.96 X10^3/ul (0.83-4.51); Lymphocyte % 28.1 % (19-41); Mean Corp Hgb Conc 31.4 g/dL (32-36); Mean Corpuscular Hgb 29.1 pg (27.0-32.0); Mean Corpuscular Volume 92.4 fL (81-99); Mean Platelet Vol. 10.9 fl (6.2-12.0); Monocyte# 0.39 X10^3/uL; Monocyte% 5.6 % (0-10); NRBC Flagged by Analyzer 0 % (0-5); Neutrophil # 4.57 X10^3/uL (2.7-7.7); Neutrophil % 65.4 % (47-70); Platelet Count 210 K/mm3 (150-450); RBC Distribution Width CV 13.8 % (11.6-14.6); RBC Distribution Width SD 46.8 fl (35.1-43.9); Red Blood Count 4.75 M/mm3 (4.2-5.4)
== END 2023-10-12 18:00 | disposition home or self-care (01) ==
LOC: LAB 08:54
PROVIDERS: Family Provider Family Medicine; PCP Family Medicine; Referring Provider Psychiatry & Neurology Psychiatry; Visit Provider Psychiatry & Neurology Psychiatry
DX: Z79.899 Other long term (current) drug therapy (principal)
CPT/HCPCS: 36415; 85025

== ENCOUNTER 2023-10-22 09:13 | Outpatient (RCR) | payer MEDICARE, MEDICAID, SELFPAY ==
[2023-10-12 20:50] VITALS: BMI 36.6
[2023-10-22 09:40] LABS: Absolute Lymphocyte Count 1.91 X10^3/uL (0.83-4.51); Absolute Neutrophil Count 5.2 X10^3/uL (2.0-7.7); Basophil# 0.05 X10^3/uL; Basophil% 0.6 % (0-1); Eosinophil# 0.37 X10^3/uL; Eosinophils% 4.5 % (0-5); Hematocrit 44.9 % (37-47); Hemoglobin 14.4 g/dL (12.0-15.0); Lymphocyte # 1.91 X10^3/ul (0.83-4.51); Mean Corp Hgb Conc 32.1 g/dL (32-36); Mean Corpuscular Hgb 29.1 pg (27.0-32.0); Mean Corpuscular Volume 90.7 fL (81-99); Mean Platelet Vol. 9.9 fl (6.2-12.0); Monocyte# 0.79 X10^3/uL; Monocyte% 9.5 % (0-10); NRBC Flagged by Analyzer 0 % (0-5); Neutrophil # 5.15 X10^3/uL (2.7-7.7); POSITIVE MORPHOLOGY YES; Platelet Count 217 K/mm3 (150-450); RBC Distribution Width SD 46.6 fl (35.1-43.9); Red Blood Count 4.95 M/mm3 (4.2-5.4); White Blood Count 8.3 K/mm3 (4.4-11.0)
[2023-10-22 09:49] LABS: Differential Indicated SCAN CRITERIA MET
[2023-10-22 11:54] LABS: Differential Comment SCANNED
== END 2023-10-22 18:00 | disposition home or self-care (01) ==
LOC: LAB 09:13
PROVIDERS: Family Provider Family Medicine; PCP Family Medicine; Referring Provider Psychiatry & Neurology Psychiatry; Visit Provider Psychiatry & Neurology Psychiatry
DX: Z79.899 Other long term (current) drug therapy (principal)
CPT/HCPCS: 36415; 85025

== ENCOUNTER → 2023-10-24 | Outpatient (CLI) | payer MEDICARE, MEDICAID, SELFPAY ==
--- NOTE | 2023-10-24 10:16 | RAD_ITS ---
STUDY: X-RAY CHEST REASON FOR EXAM: Female, 57 years old. Fever and cough TECHNIQUE: PA and lateral views of the chest. COMPARISON: 08/15/2023 FINDINGS: The lungs are clear and expanded. There is no demonstrated pleural abnormality. Normal size heart. Normal mediastinum and reshma. Normal visualized pulmonary arteries. Normal visualized aortic arch and descending thoracic aorta. There are diffuse degenerative changes of the visualized thoracic spine. Normal visualized ribs, clavicles, and shoulders. There is no demonstrated abnormality of the visualized soft tissue structures of the upper abdomen. RAD/Chest PA and Lateral IMPRESSION: No acute pulmonary process Electronically Signed: Edwin Mckeon MD at 17:01 EST ,
--- OUTSIDE RECORDS SUMMARY | 2023-10-24 10:29 | XMS RPT_ITS | CCD ---
Author Name Unknown Address [address] [place] [address] Organization [facility] Care Team Providers Care Green End Worker Name Role Phone KIMBERLY AMAYA Unavailable Unavailable KIMBERLY AMAYA Unavailable Unavailable Boris Vance Unavailable Unavailable KIMBERLY AMAYA Unavailable Unavailable KIMBERLY AMAYA Unavailable Unavailable Boris Vance Unavailable Unavailable Boris Vance MD Primary Care Provider Koby Floyd Unavailable Boris Vance MD Primary Care Provider Koby Floyd Unavailable Boris Vance MD Primary Care Provider Boris Vance MD Primary Care Provider Koby Floyd Unavailable RADHA BATISTA Attending Unavailable BORIS VANCE Primary Care Unavailable ALMA GRAMAJO Attending Unavailable BORIS VANCE Primary Care Unavailable BORIS VANCE Primary Care Unavailable RADHA BATISTA Referring Unavailable RADHA BATISTA Referring Unavailable BORIS VANCE Primary Care Unavailable RADHA BATISTA Referring Unavailable BORIS VANCE Primary Care Unavailable RADHA BATISTA Referring Unavailable BORIS VANCE Primary Care Unavailable RADHA BATISTA Referring Unavailable BORIS VANCE Primary Care Unavailable RADHA BATISTA Referring Unavailable BORIS VANCE Primary Care Unavailable BORIS VANCE Primary Care Unavailable RADHA BATISTA Attending Unavailable BORIS VANCE Primary Care Unavailable BORIS VANCE Attending Unavailable FUENTES RENEE Attending Unavailable FUENTES RENEE Referring Unavailable BORIS VANCE Primary Care Unavailable Medications Current Medications Medication Drug Class(es) Dates Sig (Normalized) Sig (Original) aspirin 325 mg delayed release oral tablet (20 sources) Platelet Aggregation Inhibitor, Nonsteroidal Anti-inflammatory Drug Start: 08-15-2021 End: 07-17-2024 take 1 tablet by mouth once daily at mealtime aspirin, enteric coated (ASPIRIN, ENTERIC COATED) 325 mg EC tablet Take 1 tablet by mouth once daily. Take with food. 30 tablet 11 07/18/2023 07/17/2024 Active Completed/Discontinued Medications Medication Drug Class(es) Dates Sig (Normalized) Sig (Original) acetaminophen 500 mg oral tablet (20 sources) Start: 08-29-2021 take 500-1000 mg by mouth every eight hours as needed acetaminophen (TYLENOL EXTRA STRENGTH) 500 mg tablet Take 1-2 tablets by mouth every 8 hours as needed for pain. 60 tablet 5 08/29/2021 Active Problems Active Problems Problem Classification Problem Date Documented Da te Episodic/Chronic Abdominal pain (3 sources) Epigastric pain; Translations: [Epigastric pain] Episodic Allergic reactions (1 source) Dermatitis, unspecified; Translations: [Dermatitis] Onset: 3 Episodic Cardiac dysrhythmias (20 sources) Supraventricular tachycardia; Translations: [Supraventricular tachycardia] Onset: 0 08-28-2020 Chronic Chronic obstructive pulmonary disease and bronchiectasis (20 sources) Chronic obstructive lung disease; Translations: [Chronic obstructive pulmonary disease, unspecified] Onset: 4 03-16-2014 Chronic Congestive heart failure; nonhypertensive (20 sources) Acute diastolic heart failure; Translations: [Acute diastolic (congestive) heart failure] Onset: 8 11-07-2017 Chronic Deficiency and other anemia (1 source) Iron deficiency anemia; Translations: [Iron deficiency anemia, unspecified] Episodic Diabetes mellitus with complications (20 sources) Type 2 diabetes mellitus; Translations: [Type 2 diabetes mellitus with diabetic nephropathy] Onset: 5 09-13-2015 Chronic Diseases of white blood cells (1 source) Elevated white blood cell count, unspecified; Translations: [Leukocytosis, unspecified type] Onset: 3 Chronic Disorders of lipid metabolism (20 sources) Hyperlipidemia; Translations: [Hyperlipidemia, unspecified] Onset: 2 05-06-2012 Chronic Esophageal disorders (5 sources) Gastroesophageal reflux disease without esophagitis; Translations: [Gastro-esophageal reflux disease without esophagitis] Onset: 3 Chronic Essential hypertension (2 sources) Essential hypertension; Translations: [Essential (primary) hypertension] Onset: 3 09-22-2023 Chronic Inflammation; infection of eye (except that caused by tuberculosis or sexually transmitteddisease) (1 source) Conjunctivitis of left eye; Translations: [Unspecified conjunctivitis] Episodic Malaise and fatigue (1 source) Fatigue; Translations: [Other fatigue] 04-29-2023 Episodic Menopausal disorders (20 sources) Postmenopausal bleeding; Translations: [Postmenopausal bleeding] Onset: 7 09-26-2017 Chronic Nonspecific chest pain (1 source) Chest pain; Translations: [Chest pain, unspecified] 04-29-2023 Episodic Nutritional deficiencies (20 sources) Vitamin D deficiency; Translations: [Vitamin D deficiency, unspecified] Onset: 9 05-03-2011 Chronic Other female genital disorders (1 source) Pruritus of vagina; Translations: [Other specified noninflammatory disorders of vagina] 08-29-2023 Episodic Other female genital disorders (1 source) Other specified noninflammatory disorders of vagina; Translations: [Itching in the vaginal area] Onset: 3 Episodic Other gastrointestinal disorders (1 source) Chronic idiopathic constipation; Translations: [Chronic idiopathic constipation] Chronic Other gastrointestinal disorders (2 sources) Chronic constipation; Translations: [Other constipation] Episodic Other gastrointestinal disorders (20 sources) Constipation; Translations: [Constipation, unspecified] 02-01-2016 Episodic Other gastrointestinal disorders (1 source) Abdominal bloating; Translations: [Abdominal distension (gaseous)] Episodic Other hereditary and degenerative nervous system conditions (2 sources) Restless legs; Translations: [Restless legs syndrome] Chronic Other inflammatory condition of skin (2 sources) Rosacea; Translations: [Rosacea, unspecified] Chronic Other injuries and conditions due to external causes (1 source) Injury of toenail; Translations: [Unspecified injury of right foot, initial encounter] Episodic Other liver diseases (20 sources) Elevated levels of transaminase & lactic acid dehydrogenase; Translations: [Nonspecific elevation of levels of transaminase or lactic acid dehydrogenase (LDH)] 12-28-2013 Episodic Other non-traumatic joint disorders (1 source) Pain in right hip joint; Translations: [Pain in right hip] Episodic Other nutritional; endocrine; and metabolic disorders (20 sources) Obese class II; Translations: [Obesity, unspecified] Onset: 8 03-16-2018 Chronic Other nutritional; endocrine; and metabolic disorders (20 sources) Obese class I; Translations: [Obesity, unspecified] Onset: 2 06-03-2022 Chronic Other nutritional; endocrine; and metabolic disorders (1 source) Weight loss; Translations: [Abnormal weight loss] 04-29-2023 Episodic Other skin disorders (1 source) Skin irritation ; Translations: [Other skin changes] Episodic Residual codes; unclassified (20 sources) Obstructive sleep apnea syndrome; Translations: [Obstructive sleep apnea (adult) (pediatric)] Onset: 7 11-07-2017 Chronic Respiratory failure; insufficiency; arrest (adult) (1 source) Acute respiratory failure; Translations: [Acute respiratory failure with hypoxia] Onset: 3 09-22-2023 Episodic Schizophrenia and other psychotic disorders (20 sources) Schizophreniform disorder; Translations: [Schizophreniform disorder] 08-26-2017 Chronic Skin and subcutaneous tissue infections (1 source) Infected face; Translations: [Local infection of the skin and subcutaneous tissue, unspecified] Episodic Spondylosis; intervertebral disc disorders; other back problems (1 source) Backache; Translations: [Dorsalgia, unspecified] Episodic Unclassified (1 source) Unknown / UNK(Unknown) Onset: 8 Viral infection (1 source) Disease caused by 2019-nCoV; Translations: [COVID-19] Episodic Past or Other Problems Problem Classification Problem Date Documented Da te Episodic/Chronic Administrative/social admission (20 sources) Patient encounter status; Translations: [Other specified counseling] Onset: 01-14-2022 Episodic Cardiac dysrhythmias (20 sources) Palpitations; Translations: [Tachycardia] Onset: 11-27-2017 08-28-2020 Episodic Fluid and electrolyte disorders (20 sources) Water intoxication syndrome; Translations: [Other fluid overload] Onset: 09-22-2014 09-22-2014 Episodic Gastritis and duodenitis (20 sources) Gastritis; Translations: [Gastritis, unspecified, without bleeding] Onset: 08-07-2009 08-07-2009 Episodic Immunizations and screening for infectious disease (1 source) Encounter for immunization; Translations: [Encounter for immunization] Onset: 04-29-2023 Episodic Other aftercare (1 source) assisted (current) use of insulin; Translations: [Type 2 diabetes mellitus with diabetic nephropathy, with long-term current use of insulin (HCC)] Onset: 09-13-2015 Episodic Other circulatory disease (2 sources) History of clinical finding in subject; Translations: [Personal history of other diseases of the circulatory system] Onset: 05-21-2021 05-21-2021 Episodic Other injuries and conditions due to external causes (2 sources) H/O: injury; Translations: [Personal history of other (healed) physical injury and trauma] Onset: 08-12-2018 08-12-2018 Episodic Other nutritional; endocrine; and metabolic disorders (1 source) Abnormal weight loss; Translations: [Weight loss] Onset: 04-29-2023 Episodic Other screening for suspected conditions (not mental disorders or infectious disease) (20 sources) Liver function tests abnormal; Translations: [Other specified abnormal findings of blood chemistry] Onset: 09-04-2009 02-26-2010 Episodic Results Test Name Value Interpretation Reference Range Facil ity Vital Signs Date Time Vital Sign Value Performing Clinician Faci lity 09-22-2023 15:48-0500 Body weight 78.93 kg Fuentes Renee MD Work Phone: [facility] 09-22-2023 15:48-0500 Diastolic blood pressure 76 mm[Hg] Fuentes Renee MD Work Phone: [facility] 09-22-2023 15:48-0500 Heart rate 114 /min Fuentes Renee MD Work Phone: [facility] 09-22-2023 15:48-0500 SaO2% (BldA) [Mass fraction] 96 % Fuentes Renee MD Work Phone: [facility] 09-22-2023 15:48-0500 Systolic blood pressure 118 mm[Hg] Fuentes Renee MD Work Phone: [facility] 08-29-2023 15:12-0500 Body height 154.9 cm Alma Gramajo APRN.CNP Work Phone: [facility] 08-29-2023 15:12-0500 Body weight 78.93 kg Alma [place] CHIEF COOK.MANUFACTURING SPECIALIST Work Phone: [facility] 08-29-2023 15:12-0500 Diastolic blood pressure 72 mm[Hg] Alma Rox CHIEF COOK.MANUFACTURING SPECIALIST Work Phone: [facility] 08-29-2023 15:12-0500 Systolic blood pressure 118 mm[Hg] Alma Rox CHIEF COOK.MANUFACTURING SPECIALIST Work Phone: [facility] 04-29-2023 14:31-0400 Body weight 78.02 kg Radha Haagen CHIEF COOK.MANUFACTURING SPECIALIST Work Phone: [facility] 04-29-2023 14:31-0400 Diastolic blood pressure 82 mm[Hg] Radha Haagen CHIEF COOK.MANUFACTURING SPECIALIST Work Phone: [facility] 04-29-2023 14:31-0400 Heart rate 109 /min Radha Haagen CHIEF COOK.MANUFACTURING SPECIALIST Work Phone: [facility] 04-29-2023 14:31-0400 Respiratory rate 16 /min Radha Haagen CHIEF COOK.MANUFACTURING SPECIALIST Work Phone: [facility] 04-29-2023 14:31-0400 SaO2% (BldA) [Mass fraction] 92 % Radha Haagen CHIEF COOK.MANUFACTURING SPECIALIST Work Phone: [facility] 04-29-2023 14:31-0400 Systolic blood pressure 124 mm[Hg] Radha Haagen CHIEF COOK.MANUFACTURING SPECIALIST Work Phone: [facility] 08-28-2022 13:53-0500 Body weight 83.01 kg Radha Haagen CHIEF COOK.MANUFACTURING SPECIALIST Work Phone: [facility] 08-28-2022 13:53-0500 Diastolic blood pressure 72 mm[Hg] Radha Haagen CHIEF COOK.MANUFACTURING SPECIALIST Work Phone: [facility] 08-28-2022 13:53-0500 Heart rate 98 /min Radha Haagen CHIEF COOK.MANUFACTURING SPECIALIST Work Phone: [facility] 08-28-2022 13:53-0500 Respiratory rate 18 /min Radha Haagen CHIEF COOK.MANUFACTURING SPECIALIST Work Phone: [facility] 08-28-2022 13:53-0500 SaO2% (BldA) [Mass fraction] 96 % Radha Haagen CHIEF COOK.MANUFACTURING SPECIALIST Work Phone: [facility] 08-28-2022 13:53-0500 Systolic blood pressure 124 mm[Hg] Radha Haagen CHIEF COOK.MANUFACTURING SPECIALIST Work Phone: [facility] 08-08-2022 13:42-0400 Body temperature 97.39 [degF] Zaira García CHIEF COOK.MANUFACTURING SPECIALIST Work Phone: [facility] 08-08-2022 13:42-0400 Body weight 82.83 kg Zaira García CHIEF COOK.MANUFACTURING SPECIALIST Work Phone: [facility] 08-08-2022 13:42-0400 Diastolic blood pressure 76 mm[Hg] Zaira García CHIEF COOK.MANUFACTURING SPECIALIST Work Phone: [facility] 08-08-2022 13:42-0400 Heart rate 108 /min Zaira García CHIEF COOK.MANUFACTURING SPECIALIST Work Phone: [facility] 08-08-2022 13:42-0400 Respiratory rate 16 /min Zaira García CHIEF COOK.MANUFACTURING SPECIALIST Work Phone: [facility] 08-08-2022 13:42-0400 SaO2% (BldA) [Mass fraction] 97 % Zaira García CHIEF COOK.MANUFACTURING SPECIALIST Work Phone: [facility] 08-08-2022 13:42-0400 Systolic blood pressure 130 mm[Hg] Zaira García CHIEF COOK.MANUFACTURING SPECIALIST Work Phone: [facility] 07-05-2022 13:00-0400 Body temperature 97 [degF] Zaira García CHIEF COOK.MANUFACTURING SPECIALIST Work Phone: [facility] 07-05-2022 13:00-0400 Body weight 83.19 kg Zaira García CHIEF COOK.MANUFACTURING SPECIALIST Work Phone: [facility] 07-05-2022 13:00-0400 Diastolic blood pressure 74 mm[Hg] Zaira García CHIEF COOK.MANUFACTURING SPECIALIST Work Phone: [facility] 07-05-2022 13:00-0400 Heart rate 112 /min Zaira García CHIEF COOK.MANUFACTURING SPECIALIST Work Phone: [facility] 07-05-2022 13:00-0400 Respiratory rate 18 /min Zaira García CHIEF COOK.MANUFACTURING SPECIALIST Work Phone: [facility] 07-05-2022 13:00-0400 SaO2% (BldA) [Mass fraction] 97 % Zaira García CHIEF COOK.MANUFACTURING SPECIALIST Work Phone: [facility] 07-05-2022 13:00-0400 Systolic blood pressure 122 mm[Hg] Zaira García CHIEF COOK.MANUFACTURING SPECIALIST Work Phone: [facility] 03-27-2022 14:06-0400 Diastolic blood pressure 82 mm[Hg] Radha Haagen CHIEF COOK.MANUFACTURING SPECIALIST Work Phone: [facility] 03-27-2022 14:06-0400 Heart rate 103 /min Radha Haagen CHIEF COOK.MANUFACTURING SPECIALIST Work Phone: [facility] 03-27-2022 14:06-0400 Respiratory rate 18 /min Radha Haagen CHIEF COOK.MANUFACTURING SPECIALIST Work Phone: [facility] 03-27-2022 14:06-0400 SaO2% (BldA) [Mass fraction] 98 % Radha Haagen CHIEF COOK.MANUFACTURING SPECIALIST Work Phone: [facility] 03-27-2022 14:06-0400 Systolic blood pressure 120 mm[Hg] Radha Haagen CHIEF COOK.MANUFACTURING SPECIALIST Work Phone: [facility] 01-30-2022 13:12-0400 Body weight 85.64 kg Radha Haagen CHIEF COOK.MANUFACTURING SPECIALIST Work Phone: [facility] 01-30-2022 13:12-0400 Diastolic blood pressure 78 mm[Hg] Radha Haagen CHIEF COOK.MANUFACTURING SPECIALIST Work Phone: [facility] 01-30-2022 13:12-0400 Heart rate 106 /min Radha Batista CHIEF COOK.MANUFACTURING SPECIALIST Work Phone: [facility] 01-30-2022 13:12-0400 Respiratory rate 16 /min Radha Batista CHIEF COOK.MANUFACTURING SPECIALIST Work Phone: [facility] 01-30-2022 13:12-0400 Systolic blood pressure 112 mm[Hg] Radha Batista CHIEF COOK.MANUFACTURING SPECIALIST Work Phone: [facility] 01-14-2022 15:12-0400 Body weight 84.82 kg Boris Vance MD Work Phone: [facility] 01-14-2022 15:12-0400 Diastolic blood pressure 68 mm[Hg] Boris Vance MD Work Phone: [facility] 01-14-2022 15:12-0400 Heart rate 118 /min Boris Vance MD Work Phone: [facility] 01-14-2022 15:12-0400 SaO2% (BldA) [Mass fraction] 95 % Boris Vance MD Work Phone: [facility] 01-14-2022 15:12-0400 Systolic blood pressure 102 mm[Hg] Boris Vance MD Work Phone: [facility] Encounters Encounter Date Encounter Type Care Provider Facility Start: 09-22-2023 End: 09-22-2023 ambulatory FUENTES RENEE Facility:[facility] Start: 09-22-2023 End: 09-22-2023 Patient encounter procedure Fuentes Renee MD Work Phone: Cardiology Procedures Date Procedure Procedure Detail Performing Clinician Start: 05-26-2023 Myocardial spect mul tiple studies Radha Batista CHIEF COOK.MANUFACTURING SPECIALIST Work Phone: Start: 01-14-2022 Adult depression scr eening assessment Boris Vance MD Work Phone: Start: 06-27-2021 Mammography Boris Anaya MD Work Phone: Start: 08-05-2019 Adult depression scr eening assessment Boris Vance MD Work Phone: Start: 12-19-2016 Colonoscopy Boris Anaya MD Work Phone: Plan of Treatment Date Care Activity Detail Author Start: 07-18-2028 Urine microalbumin profile DTaP,Tdap,Td Vaccine (3 - Td or Tdap) [facility] Start: 12-19-2026 Colonoscopy COLONOSCOPY [facility] Start: 12-19-2026 COLORECTAL CANCER SCREENING COLORECTAL CANCER SCREENING [facility] Start: 01-24-2026 HPV TESTING HPV TESTING [facility] Start: 01-24-2026 PAP TESTING PAP TESTING [facility] Start: 09-22-2024 BP Controlled (<130/80) BP Controlled (<130/80) [facility] Start: 09-19-2024 Annual PCP Team Chronic Disease Visit Annual PCP Team Chronic Disease Visit [facility] Start: 04-29-2024 ANNUAL PCP TEAM CHRONIC DISEASE VISIT ANNUAL PCP TEAM CHRONIC DISEASE VISIT [facility] Start: 04-29-2024 Hepatitis B surface antibody level LDL CHOLESTEROL [facility] Start: 12-21-2023 ANNUAL PCP TEAM CHRONIC DISEASE VISIT ANNUAL PCP TEAM CHRONIC DISEASE VISIT [facility] Start: 10-30-2023 Hemoglobin A1c/Hemoglobin.total in Blood HBA1C [facility] Start: 09-17-2023 Hepatitis C antibody, confirmatory test DILATED RETINAL EXAM [facility] Start: 08-28-2023 ANNUAL PCP TEAM CHRONIC DISEASE VISIT ANNUAL PCP TEAM CHRONIC DISEASE VISIT [facility] Start: 08-21-2023 Hepatitis B surface antibody level LDL CHOLESTEROL [facility] Start: 06-13-2023 Covid-19 Vaccine ( season) Covid-19 Vaccine ( season) [facility] Start: 06-13-2023 Influenza vaccination [facility] Start: 04-29-2023 End: 06-29-2023 Bacteria identified in Urine by Culture [facility] Work Phone: Immunizations Immunization Date Immunization Notes Care Provider Fa kourtney 08-22-2022 influenza virus vacc ine, unspecified formulation Fuentes Renee MD Work Phone: [facility] 06-29-2021 influenza, injectabl e, quadrivalent, contains preservative Boris Vance MD Work Phone: [facility] 11-29-2020 COVID-19 vaccine, fu ll dose (MODERNA) Boris Vance MD Work Phone: [facility] 11-01-2020 COVID-19 vaccine, fu ll dose (MODERNA) Boris Vance MD Work Phone: [facility] 07-19-2020 influenza, injectabl e, quadrivalent, contains preservative Boris Vance MD Work Phone: [facility] 10-18-2019 influenza, injectabl e, quadrivalent, contains preservative Boris Vance MD Work Phone: [facility] Work Phone: 07-17-2018 influenza, injectabl e, quadrivalent, contains preservative Boris Vance MD Work Phone: [facility] 07-04-2016 influenza, injectabl e, quadrivalent, contains preservative Boris Vance MD Work Phone: [facility] 08-08-2014 pneumococcal polysaccharide vaccine, 23 valent Boris Vance MD Work Phone: [facility] 07-27-2014 influenza, seasonal, injectable Boris Vance MD Work Phone: [facility] Work Phone: 01-13-2013 tetanus toxoid, redu regino diphtheria toxoid, and acellular pertussis vaccine, adsorbed Boris Vance MD Work Phone: [facility] Work Phone: 08-05-2011 influenza virus vacc ine, unspecified formulation Boris Vance MD Work Phone: [facility] Work Phone: 08-22-2010 influenza virus vacc ine, unspecified formulation Boris Vance MD Work Phone: [facility] Work Phone: 1965 influenza, seasonal, injectable Boris Vance MD Work Phone: [facility] Payers Date Payer Category Payer Medicare [facility] MEDICARE MYC ARE [employer] MEDICARE [id number] 2023-Present [phone] [address] [place] [address] Medicare [id number] 2020 Medicaid [facility] MEDICAID MYC ARE [facility] MEDICAID [id number] 2020-Present [phone] [address] [place] [address] Medicaid [id number] 2020 Medicare [id number] 2020 Medicare [id number] Medicare [id number] Social History Date Type Detail Facility Start: 01-25-2014 End: 06-03-2022 Tobacco smoking status NHIS Ex-smoker [facility] End: 01-11-2014 History of tobacco use Current smoker [facility] End: 01-11-2014 History of tobacco use Cigarette Smoker [facility] Start: 01-25-2014 End: 03-12-2023 Cigarettes smoked current (pack per day) - Reported 2 [facility] Start: 01-25-2014 End: 06-03-2022 Tobacco use and exposure Smokeless tobacco non-user [facility] Start: 09-26-2021 End: 09-22-2023 Alcohol intake Current non-drinker of alcohol (finding) [facility] Start: 06-19-2018 History SDOH Alcohol Frequency 1 [facility] Start: 06-26-2018 History SDOH Social Connections Phone 5 [facility] Start: 06-26-2018 History SDOH Social Connections Get Together 3 [facility] Start: 06-26-2018 History SDOH Social Connections Living 7 [facility] Start: 06-26-2018 History SDOH Physica l Activity DPW 4 [facility] Start: 06-19-2018 End: 06-26-2018 History SDOH Physical Activity MPS 2 [facility] Start: 06-26-2018 Education 13 [facility] Start: 1965 Sex Assigned At Not on file C [facility] [place] [facility] Start: 01-04-2022 End: 10-27-2022 Exposure to SARS-CoV-2 (event) Not sure [facility] Start: 06-26-2018 End: 03-12-2023 Social connection and isolation panel [facility] Attends Orthod[employer] Services Not on file C [facility] Are you now , , , , never or living with a partner? Never [facility] How often to you hav e a drink containing alcohol? Never [facility] Do you feel stress - tense, restless, nervous, or anxious, or unable to sleep at night because your mind is troubled all the time - these days [OSQ] Only a little [facility] (I/We) worried wheth er (my/our) food would run out before (I/we) got money to buy more. Never true [facility] Medical Equipment Procedure Code Equipment Code Equipment Origin al Text Equipment Identifier Dates Start: 01-23-2015 End: 09-10-2023 Goals Date Patient Goal Desired Activity /State Personal health goal Personal health goal Clinical Notes 08-06-2018 to 09-22-2023 Fuentes Renee MD - 09/22/2023 3:56 PM ESTTelephone Encounter - Joselyn Hendricks - 09/10/2023 9:54 AM ESTTelephone Encounter - Boris Vance MD - 09/09/2023 5:19 PM ESTPatient Instructions Note Date & Type Note Facility 09-22-2023 Note HNO ID: [id number] Author: Fuentes Renee MD Service: ? Author Type: Physician Type: Progress Notes Filed: 09/22/2023 4:00 PM Note Text: Fuentes Renee MD Interventional Cardiology [address] [place] [address] Chief Complaint Patient presents with: Established Patient Follow-Up HISTORY OF PRESENT ILLNESS: Ms. Le is a 57 year old female seen in my office today for assessment management of sinus tachycardia and supraventricular tachycardia Patient is doing well from the cardiac point of view denies any chest pain or shortness of breath She is not aware of tachycardia anymore and maintained on beta-harika metoprolol Nuclear stress test shows normal left ventricular function with no evidence of ischemia with normal ejection fraction Cardiac Risk Factors age (male over 45, female over 55), hyperlipidemia, hypertension PAST MEDICAL HISTORY Diagnosis Date Bilateral pneumonia 07/23/2018 Admit [facility]: pneumococcal suspected, neg culture. 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, pt was on metformin for a while but taken off - pt never told if she had DM or not Major depressive disorder, recurrent episode, unspecified Nonspecific elevation of levels of transaminase or lactic acid dehydrogenase (LDH) LIDA (obstructive sleep apnea) Pneumonia Schizophreniform disorder, chronic condition ([facility]) Simple endometrial hyperplasia without atypia mirena IUD 01/2011 PAST SURGICAL HISTORY Procedure Laterality Date CHOLECYSTECTOMY 1998 open COLONOSCOPY W/BIOPSY SINGLE/MULTIPLE 12/19/2016 Normal colonoscopy-10 year follow-up PAST SURGICAL HISTORY OF 1982 corrective jaw surgery FAMILY HISTORY Problem Relation Age of Onset Psychiatry Mother depression Psychiatry Sister deperssion other (lung cancer) Paternal Grandfather Social History Tobacco Use Smoking status: Former Packs/day: 2.00 Years: 20.00 Additional pack years: 0.00 Total pack years: 40.00 Types: Cigarettes Quit date: 01/11/2014 Years since quittin.7 Smokeless tobacco: Never Vaping Use Vaping Use: Never used Substance Use Topics Alcohol use: No Drug use: No Comment: marijunan- Teen yrs, but not now ALLERGIES No Known Allergies Medications: Current Outpatient Medications Medication Sig Dispense Refill clotrimazole-betamethasone (LOTRISONE) cream Apply to affected area two times a day for 14 days. 15 g 0 furosemide (LASIX) 20 mg tablet Take 1 tablet by mouth once daily. 90 tablet 3 atorvastatin (LIPITOR) 10 mg tablet Take 1 tablet by mouth daily at bedtime. For cholesterol. 30 tablet 5 Lancets lancets Test blood sugar(s) 2 times daily. Dx: Other DM Code E11.21 Insulin: Yes 100 Each 11 blood sugar diagnostic (BLOOD GLUCOSE TEST) test strip testing twice daily Insulin yes Use as instructed DXE11.21 100 Strip 11 miconazole nitrate (MONISTAT) 200 mg vaginal suppository Use 1 Suppository vaginally daily at bedtime. For 7 nights. 7 Suppository 0 Cwwgl-5-LQA-EPA-Fish Oil (FISH OIL) 300-1,000 mg cap Take by mouth. insulin glargine (LANTUS SOLOSTAR U-100 INSULIN) 100 unit/mL (3 mL) Give 48 units subq daily at 4 PM or as directed 5 Each 11 insulin lispro (HUMALOG KWIKPEN) 100 unit/mL Sig: Administer Lispro insulin per scale AC breakfast morning, AC lunch, AC dinner, AC bedtime as follows with glucose 150-199 2u, 200-249 3u, 250-299 5u, 300-350 8u, 350-399 11u, 400- 449 14u, 450 and above go to ER. Total per day 64u 1 Each 5 omega-3 fatty acids (FISH OIL CONCENTRATE) 1,000 mg cap Take 1 capsule by mouth once daily. 30 capsule 11 Cholecalciferol, Vitamin D3, 25 mcg (1,000 unit) cap Take 1 capsule by mouth once daily. 30 capsule 11 guaiFENesin (MUCINEX) 600 mg 12 hr tablet Take 2 tablets by mouth two times a day. 24 tablet 0 potassium chloride ER (KLOR-CON) 20 mEq tablet Take 1 tablet by mouth once daily. 30 tablet 5 aspirin, enteric coated (ASPIRIN, ENTERIC COATED) 325 mg EC tablet Take 1 tablet by mouth once daily. Take with food. 30 tablet 11 empagliflozin (JARDIANCE) 10 mg tablet Take 1 tablet by mouth daily with breakfast. 30 tablet 3 metoprolol succinate ER (TOPROL XL) 25 mg 24 hr tablet take 1 tablet by mouth every evening 90 tablet 3 omeprazole (PRILOSEC) 20 mg capsule Take 1 capsule by mouth daily before breakfast. 1/2 hr before meal. 30 capsule 5 pramipexole (MIRAPEX) 0.5 mg tablet Take 0.5 tablets by mouth daily at bedtime. 30 tablet 5 Comp Stocking,Knee,Regular,Med misc Patient to be measured for correct size. 20-30 mmHg Dx: I50.31 1 Each 0 ibuprofen (MOTRIN) 200 mg tablet Take 1 tablet by mouth every 8 hours as needed for pain. 60 tablet 1 metFORMIN ER (GLUCOPHAGE XR) 500 mg 24 hr tablet Take 2 tablets by mouth twice daily before meals. 360 tablet 3 ferrous sulfate 325 mg (65 mg iron) tablet Take 1 tablet by mouth t (more content not included)... [facility] 09-22-2023 History of Present illness Narrative Images from the original note were not included. Fuentes Renee MD Interventional Cardiology [address] [place], [place] [id number] Chief Complaint Patient presents with: Established Patient Follow-Up HISTORY OF PRESENT ILLNESS: Ms. Le is a 57 year old female seen in my office today for assessment management of sinus tachycardia and supraventricular tachycardia Patient is doing well from the cardiac point of view denies any chest pain or shortness of breath She is not aware of tachycardia anymore and maintained on beta-harika metoprolol Nuclear stress test shows normal left ventricular function with no evidence of ischemia with normal ejection fraction Cardiac Risk Factors age (male over 45, female over 55), hyperlipidemia, hypertension PAST MEDICAL HISTORY Diagnosis Date Bilateral pneumonia 07/23/2018 Admit [facility]: pneumococcal suspected, neg culture. 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 [facility], pt was on metformin for a while but taken off - pt never told if she had DM or not Major depressive disorder, recurrent episode, unspecified Nonspecific elevation of levels of transaminase or lactic acid dehydrogenase (LDH) LIDA (obstructive sleep apnea) Pneumonia Schizophreniform disorder, chronic condition (HCC) Simple endometrial hyperplasia without atypia mirena IUD 01/2011 PAST SURGICAL HISTORY Procedure Laterality Date CHOLECYSTECTOMY 1998 open COLONOSCOPY W/BIOPSY SINGLE/MULTIPLE 12/19/2016 Normal colonoscopy-10 year follow-up PAST SURGICAL HISTORY OF 1983 corrective jaw surgery FAMILY HISTORY Problem Relation Age of Onset Psychiatry Mother depression Psychiatry Sister deperssion other (lung cancer) Paternal Grandfather Social History Tobacco Use Smoking status: Former Packs/day: 2.00 Years: 20.00 Additional pack years: 0.00 Total pack years: 40.00 Types: Cigarettes Quit date: 01/11/2014 Years since quittin.7 Smokeless tobacco: Never Vaping Use Vaping Use: Never used Substance Use Topics Alcohol use: No Drug use: No Comment: marijunan- Teen yrs, but not now ALLERGIES No Known Allergies Medications: Current Outpatient Medications Medication Sig Dispense Refill clotrimazole-betamethasone (LOTRISONE) cream Apply to affected area two times a day for 14 days. 15 g 0 furosemide (LASIX) 20 mg tablet Take 1 tablet by mouth once daily. 90 tablet 3 atorvastatin (LIPITOR) 10 mg tablet Take 1 tablet by mouth daily at bedtime. For cholesterol. 30 tablet 5 Lancets lancets Test blood sugar(s) 2 times daily. Dx: Other DM Code E11.21 Insulin: Yes 100 Each 11 blood sugar diagnostic (BLOOD GLUCOSE TEST) test strip testing twice daily Insulin yes Use as instructed DXE11.21 100 Strip 11 miconazole nitrate (MONISTAT) 200 mg vaginal suppository Use 1 Suppository vaginally daily at bedtime. For 7 nights. 7 Suppository 0 Humgu-0-XNV-EPA-Fish Oil (FISH OIL) 300-1,000 mg cap Take by mouth. insulin glargine (LANTUS SOLOSTAR U-100 INSULIN) 100 unit/mL (3 mL) Give 48 units subq daily at 4 PM or as directed 5 Each 11 insulin lispro (HUMALOG KWIKPEN) 100 unit/mL Sig: Administer Lispro insulin per scale AC breakfast morning, AC lunch, AC dinner, AC bedtime as follows with glucose 150-199 2u, 200-249 3u, 250-299 5u, 300-350 8u, 350-399 11u, 400- 449 14u, 450 and above go to ER. Total per day 64u 1 Each 5 omega-3 fatty acids (FISH OIL CONCENTRATE) 1,000 mg cap Take 1 capsule by mouth once daily. 30 capsule 11 Cholecalciferol, Vitamin D3, 25 mcg (1,000 unit) cap Take 1 capsule by mouth once daily. 30 capsule 11 guaiFENesin (MUCINEX) 600 mg 12 hr tablet Take 2 tablets by mouth two times a day. 24 tablet 0 potassium chloride ER (KLOR-CON) 20 mEq tablet Take 1 tablet by mouth once daily. 30 tablet 5 aspirin, enteric coated (ASPIRIN, ENTERIC COATED) 325 mg EC tablet Take 1 tablet by mouth once daily. Take with food. 30 tablet 11 empagliflozin (JARDIANCE) 10 mg tablet Take 1 tablet by mouth daily with breakfast. 30 tablet 3 metoprolol succinate ER (TOPROL XL) 25 mg 24 hr tablet take 1 tablet by mouth every evening 90 tablet 3 omeprazole (PRILOSEC) 20 mg capsule Take 1 capsule by mouth daily before breakfast. 1/2 hr before meal. 30 capsule 5 pramipexole (MIRAPEX) 0.5 mg tablet Take 0.5 tablets by mouth daily at bedtime. 30 tablet 5 Comp Stocking,Knee,Regular,Med misc Patient to be measured for correct size. 20-30 mmHg Dx: I50.31 1 Each 0 ibuprofen (MOTRIN) 200 mg tablet Take 1 tablet by mouth every 8 hours as needed for pain. 60 tablet 1 metFORMIN ER (GLUCOPHAGE XR) 500 mg 24 hr tablet Take 2 tablets by mouth twice daily before meals. 360 tablet 3 ferrous sulfate 325 mg (65 mg iron) tablet Take 1 tablet by mouth twice daily with meals. 120 tablet 5 polyethylene glycol 3350 (MIRALAX) 17 gram packet Take 1 Packet by mouth once daily. Dissolve dose in 4 - 8 ounces of liquid and take as directed. 28 Packet 11 fluticasone (FLONASE) 50 mcg/actuation nasal spray Use 2 Sprays in each nostril once daily. Rinse mouth after use. 1 Each 0 metroNIDAZOLE (METROGEL) 1 % Topical Gel Apply 1 application to affected area once daily. Location: face 60 g 5 simethicone, chewable (GAS RELIEF, SIMETHICONE,) 80 mg chewable tablet Take 1 tablet by mouth every 6 hours as needed. 100 tablet 11 insulin needles, DISPOSABLE, (PEN NEEDLE) 31 gauge x 5/16 Use one needle per dose. Once per day. 100 Each 11 Artificial Tear, Hypromellose, (SYSTANE GEL) 0.3 % gel Use 1 Drop in both eyes daily at bedtime. 10 mL 5 Lancing Device with Lancets (CareCentrix DELICU Metrix PLUS LANC DEV) Check blood sugars twice a day. Dx: E11.21 100 Each 5 INVEGA SUSTENNA 156 mg/mL syrg injection clonazePAM (KLONOPIN) 0.5 mg tablet Take 0.5 mg by mouth three times daily as needed. acetaminophen (TYLENOL EXTRA STRENGTH) 500 mg tablet Take 1-2 tablets by mouth every 8 hours as needed for pain. 60 tablet 5 Lancets lancets Test blood sugar(s) 2 times daily. Dx: Other DM Code E11.21 Insulin: Yes 100 Each 11 METOPROLOL SUCCINATE ORAL Take 12.5 mg by mouth twice daily. Blood Pressure Monitor 1 Each twice daily. 1 Kit 0 cloZAPine (CLOZARIL) 100 mg tablet Take by mouth. Takes 25mg in the morning and 500mg at bedtime umeclidinium (INCRUSE ELLIPTA) 62.5 mcg/actuation inhaler Inhale 1 Puff as instructed once daily. Inhale one puff once daily. DO NOT CLICK OPEN UNTIL READY FOR DOSE 1 Each 0 fluticasone-vilanterol (BREO ELLIPTA) 100-25 mcg/dose inhaler Inhale 1 Inhalation as instructed once daily. Per Dr. Ramirez 1 Each 5 Insulin Syringe-Needle U-100 (BD INSULIN SYRINGE) 1 mL 28 gauge x 1/2 syrg Use as directed daily 100 Syringe 5 COMPOUNDED PRESCRIPTION BIPAP of 09/[address] on [address] Ramirez Lancets lancets test BS twice daily 2 days a week- dx 250.00 - non-insulin 100 Each 6 blood sugar diagnostic (FREESTYLE LITE STRIPS) test strip test BS twice daily - dx - 250.00 -insulin Yes 100 Strip 6 Blood-Glucose Meter (FREESTYLE LITE METER) monitoring kit Used once daily to check blood sugar. 250.00 1 Each 0 No current facility-administered medications for this visit. Review of Systems Constitutional: Negative for chills, diaphoresis, fever, malaise/fatigue and weight loss. HENT: Negative for congestion, ear discharge, ear pain, hearing loss, nosebleeds, sinus pain, sore throat and tinnitus. Eyes: Negative for blurred vision, double vision, photophobia, pain, discharge and redness. Respiratory: Negative for cough, hemoptysis, sputum production, shortness of breath, wheezing and stridor. Cardiovascular: Negative for chest pain, palpitations, orthopnea, claudication, leg swelling and PND. Gastrointestinal: Negative for abdominal pain, blood in stool, constipation, diarrhea, heartburn, melena, nausea and vomiting. Genitourinary: Negative for dysuria, flank pain, frequency, hematuria and urgency. Musculoskeletal: Negative for back pain, falls, joint pain, myalgias and neck pain. Skin: Negative for itching and rash. Neurological: Negative for dizziness, tingling, tremors, sensory change, speech change, focal weakness, seizures, loss of consciousness, weakness and headaches. Endo/Heme/Allergies: Negative for environmental allergies and polydipsia. Does not bruise/bleed easily. Psychiatric/Behavioral: Negative for depression, hallucinations, memory loss, substance abuse and suicidal ideas. The patient is not nervous/anxious and does not have insomnia. Physical Examination: Vitals:BP 118/76 Pulse 114 Wt 174 lb (78.9kg) SpO2 96% LMP 09/12/2017 BP w/Orthostatic Vitals Date and Time Orthostatic BP Orthostatic Pulse BP Pulse BP Position BP Site BP Cuff Size 09/22/23 1548 -- -- 118/76 114 Sitting Right Arm Regular Adult Last 2 Encounter Wt Readings: Date: Wt: 09/22/2023 78.9 kg (174 lb) 08/29/2023 78.9 kg (174 lb) Physical Exam Constitutional: General: She is not in acute distress. Appearance: She is not diaphoretic. HENT: Head: Normocephalic and atraumatic. Right Ear: External ear normal. Left Ear: External ear normal. Nose: Nose normal. Mouth/Throat: Pharynx: Oropharynx is clear. Eyes: General: Right eye: No discharge. Left eye: No discharge. Conjunctiva/sclera: Conjunctivae normal. Pupils: Pupils are equal, round, and reactive to light. Cardiovascular: Rate and Rhythm: Normal rate and regular rhythm. Heart sounds: Normal heart sounds, S1 normal and S2 normal. No murmur heard. No friction rub. No gallop. No S3 or S4 sounds. Pulmonary: Effort: Pulmonary effort is normal. No respiratory distress. Breath sounds: Normal breath sounds. No wheezing or rales. Chest: Chest wall: No tenderness. Musculoskeletal: General: Normal range of motion. Cervical back: Normal range of motion and neck supple. Skin: General: Skin is warm and dry. Neurological: Mental Status: She is alert and oriented to person, place, and time. Psychiatric: Mood and Affect: Mood normal. Thought Content: Thought content normal. Pertinent Labs: CBC: Hemoglobin (g/dL) Date Value 05/07/2023 14.7 07/19/2021 14.5 Hematocrit (%) Date Value 05/07/2023 46.2 07/19/2021 43.0 WBC (k/uL) Date Value 05/07/2023 10.96 07/19/2021 9.57 Platelet Count (k/uL) Date Value 05/07/2023 146 07/19/2021 227 BMP: Glucose (mg/dL) Date Value 04/29/2023 115 07/19/2021 109 Potassium (mmol/L) Date Value 04/29/2023 4.8 07/19/2021 4.2 Sodium (mmol/L) Date Value 04/29/2023 135 07/19/2021 133 Chloride (mmol/L) Date Value 04/29/2023 96 07/19/2021 99 CO2 (mmol/L) Date Value 04/29/2023 22 07/19/2021 24 Creatinine (mg/dL) Date Value 04/29/2023 0.64 07/19/2021 0.52 BUN (mg/dL) Date Value 04/29/2023 14 07/19/2021 8 Anion Gap (mmol/L) Date Value 04/29/2023 17 07/19/2021 10 Calcium (mg/dL) Date Value 07/19/2021 9.3 Calcium, Total (mg/dL) Date Value 04/29/2023 10.1 INR: Lipid Profile: Total Cholesterol, Nonfasting Date Value Ref Range Status 04/29/2023 161 <200 mg/dL Final Comment: <200 mg/dL, Desirable 200-239 mg/dL, Borderline high >239 mg/dL, High HDL Cholesterol, Nonfasting Date Value Ref Range Status 04/29/2023 47 >39 mg/dL Final Comment: 40-59 mg/dL, Acceptable >59 mg/dL, High: Negative risk factor for coronary heart disease <40 mg/dL, Low: Positive risk factor for coronary heart disease LDL Cholesterol, Nonfasting Date Value Ref Range Status 04/29/2023 70 <100 mg/dL Final Comment: <100 mg/dL, Optimal 100-129 mg/dL, Near optimal/above optimal 130-159 mg/dL, Borderline high 160-189 mg/dL, High >189 mg/dL, Very high Secondary prevention optimal LDL Cholesterol levels are recommended to be < 70 mg/dL Triglycerides, Nonfasting Date Value Ref Range Status 04/29/2023 222 (H) <150 mg/dL Final Comment: <150 mg/dL, Normal 150-199 mg/dL, Borderline high 200-499 mg/dL, High >499 mg/dL, Very high Hemoglobin A1C: No results found for: HGBA1C TSH: No results found for: TSHREFL Prior Cardiac Testing stress Assessment and Plan: 67 years old female patient with sinus tachycardia and supraventricular tachycardia ASSESSMENT/PLAN: 1. Primary hypertension - ICD9: 401.9, ICD10: I10 (primary diagnosis) - Controlled - Continue current medications - Recommend home blood pressure monitoring, to bring results to next visit - Encouraged sodium restriction, DASH or Mediterranean diet - Recommend regular aerobic exercise 2. Pure hypercholesterolemia - ICD9: 272.0, ICD10: E78.00 On statin 3. SVT (supraventricular tachycardia) - ICD9: 427.89, ICD10: I47.10 On betablocker Fuentes Renee MD Follow up planning: One year Electronically signed by Fuentes Renee MD on September 22, 2023, 3:56 PM The above note was partially created using a dictation recognition software. A reasonable attempt has been made to correct any errors. documented in this encounter [facility] 09-19-2023 Note HNO ID: [id number] Author: Radha Batista APRN.MANUFACTURING SPECIALIST Service: ? Author Type: Nurse Practitioner Type: Progress Notes Filed: 09/19/2023 11:35 AM Note Text: This is a 57 year old female who presents today with: Patient presents with: Rash: 1 week on L forearm; itchy; using vasoline on rash HISTORY OF PRESENT ILLNESS: Brittnee Le is a 57 year old female. Patient presents with: Rash: 1 week on L forearm; itchy; using vasoline on rash Pt presents today with complaint of a rash on her left forearm. Has been there for about a week. Developed under her watch. It is not a new watch. + itch. No other places. Using Vaseline on it -- but it hasn't been helping. PAST MEDICAL HISTORY: PAST MEDICAL HISTORY Diagnosis Date Bilateral pneumonia 07/23/2018 Admit [facility]: pneumococcal suspected, neg culture. 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 [facility], pt was on metformin for a while but taken off - pt never told if she had DM or not Major depressive disorder, recurrent episode, unspecified Nonspecific elevation of levels of transaminase or lactic acid dehydrogenase (LDH) LIDA (obstructive sleep apnea) Pneumonia Schizophreniform disorder, chronic condition (HCC) Simple endometrial hyperplasia without atypia mirena IUD 01/2011 PAST SURGICAL HISTORY Procedure Laterality Date CHOLECYSTECTOMY 1998 open COLONOSCOPY W/BIOPSY SINGLE/MULTIPLE 12/19/2016 Normal colonoscopy-10 year follow-up PAST SURGICAL HISTORY OF 1982 corrective jaw surgery ALLERGIES Patient has no known allergies. MEDICATIONS Current Outpatient Medications Medication Sig furosemide (LASIX) 20 mg tablet Take 1 tablet by mouth once daily. atorvastatin (LIPITOR) 10 mg tablet Take 1 tablet by mouth daily at bedtime. For cholesterol. Lancets lancets Test blood sugar(s) 2 times daily. Dx: Other DM Code E11.21 Insulin: Yes blood sugar diagnostic (BLOOD GLUCOSE TEST) test strip testing twice daily Insulin yes Use as instructed DXE11.21 miconazole nitrate (MONISTAT) 200 mg vaginal suppository Use 1 Suppository vaginally daily at bedtime. For 7 nights. Soxql-5-JBR-EPA-Fish Oil (FISH OIL) 300-1,000 mg cap Take by mouth. insulin glargine (LANTUS SOLOSTAR U-100 INSULIN) 100 unit/mL (3 mL) Give 48 units subq daily at 4 PM or as directed insulin lispro (HUMALOG KWIKPEN) 100 unit/mL Sig: Administer Lispro insulin per scale AC breakfast morning, AC lunch, AC dinner, AC bedtime as follows with glucose 150-199 2u, 200-249 3u, 250-299 5u, 300-350 8u, 350-399 11u, 400- 449 14u, 450 and above go to ER. Total per day 64u omega-3 fatty acids (FISH OIL CONCENTRATE) 1,000 mg cap Take 1 capsule by mouth once daily. Cholecalciferol, Vitamin D3, 25 mcg (1,000 unit) cap Take 1 capsule by mouth once daily. guaiFENesin (MUCINEX) 600 mg 12 hr tablet Take 2 tablets by mouth two times a day. potassium chloride ER (KLOR-CON) 20 mEq tablet Take 1 tablet by mouth once daily. aspirin, enteric coated (ASPIRIN, ENTERIC COATED) 325 mg EC tablet Take 1 tablet by mouth once daily. Take with food. empagliflozin (JARDIANCE) 10 mg tablet Take 1 tablet by mouth daily with breakfast. metoprolol succinate ER (TOPROL XL) 25 mg 24 hr tablet take 1 tablet by mouth every evening omeprazole (PRILOSEC) 20 mg capsule Take 1 capsule by mouth daily before breakfast. 1/2 hr before meal. pramipexole (MIRAPEX) 0.5 mg tablet Take 0.5 tablets by mouth daily at bedtime. Comp Stocking,Knee,Regular,Med misc Patient to be measured for correct size. 20-30 mmHg Dx: I50.31 ibuprofen (MOTRIN) 200 mg tablet Take 1 tablet by mouth every 8 hours as needed for pain. metFORMIN ER (GLUCOPHAGE XR) 500 mg 24 hr tablet Take 2 tablets by mouth twice daily before meals. ferrous sulfate 325 mg (65 mg iron) tablet Take 1 tablet by mouth twice daily with meals. polyethylene glycol 3350 (MIRALAX) 17 gram packet Take 1 Packet by mouth once daily. Dissolve dose in 4 - 8 ounces of liquid and take as directed. fluticasone (FLONASE) 50 mcg/actuation nasal spray Use 2 Sprays in each nostril once daily. Rinse mouth after use. metroNIDAZOLE (METROGEL) 1 % Topical Gel Apply 1 application to affected area once daily. Location: face simethicone, chewable (GAS RELIEF, SIMETHICONE,) 80 mg chewable tablet Take 1 tablet by mouth every 6 hours as needed. insulin needles, DISPOSABLE, (PEN NEEDLE) 31 gauge x 5/16 Use one needle per dose. Once per day. Artificial Tear, Hypromellose, (SYSTANE GEL) 0.3 % gel Use 1 Drop in both eyes daily at bedtime. Lancing Device with Lancets (CareCentrix DELICA PLUS LANC DEV) Check blood sugars twice a day. Dx: E11.21 INVEGA SUSTENNA 156 mg/mL syrg injection clonazePAM (KLONOPIN) 0.5 mg tablet Take 0.5 mg by mouth three times daily as needed. acetaminophen (TYLENOL EXTRA STRENGTH) 500 mg tablet Take 1-2 tablets by mouth every 8 ho (more content not included)... [facility] 09-10-2023 Miscellaneous Notes Leola informed and verbalized understanding. Needs new rx for lancets and strips. Pended. Joselyn Hendricks Can go back to bid and send list in two weeks. Do we need to send in new r for strips and lancets then? Fransisca returned call stating she is reporting BS readings: 11-13: fast: 197, 3 p: 230, 8 p: 203 11-14: f: 102, 3 p: 164, 8 p: 184 -15: f: 115, 11 a: 114, 3p: 153, 8 p: 245 11-16: f: 140, 11 a: 128, 3 p: 153, 8 p: 245 11-17: f: 166, 11 a: 138, 3 p: 115, 8 p: 219 11-18: f: 146, 3 p: 116, 8 p: 155 11-19: f: 140, 122, 8 p: 209 11-20: f: 120, 11 a: 107, 3 p: 125 1121: f: 157, 11 a: 196, 3 p: 156, 8 p: 197 1122: f: 182, 11 a: 150, 3 p: 161, 8 p: 121 11-23: f: 156, 11 a: 101, 3 p: 184, 8 p: 179 11-24: f: 164, 12 p: 170, 3 p: 187, 8 p: 248 1125: f: 176, 11 a: 141, 3 p: 145, 8 p: 235 1126: f: 155, 11 a: 108, 3 p: 140, 8 p: 160 11:27: f: 171, 3 p: 176, 8 p: 170 1128: f: 151, 11:45 a: 179, 3:15 p: 127 Fransisca reports pcp office added S/S when patient was taking predisone, and ordered to check BS 4 x's day. Reports patient has been off of prednisone for a couple of weeks now, but continues to take S/S. Asking if pcp wants to continue the S/S, and if wants to continue checking BS 4 x's day? Reports if pcp wants patient to continue with S/S, will need Rx to be ordered with more lancets, more strips, and more pen needles. The way the Rx is now, patient is running out. Please advise Leola, and Leola will notify Fransisca. Left message for Fransisca to return call TC to patients pillowcase folder, Leola, to question frequency of BG readings. Leola states that Brittnee recently had COPD exacerbation and was given prednisone. She believed that's why BG was high, she has been taking regular dose of insulin plus sliding scale. Leola reports patients BG is back to her normal readings. Leola unable to verify frequency of BG monitoring and states Fransisca from [facility] monitors these and to contact her at [phone] after 4 PM for additional information. CHRIS Antunez Can we verify with long[facility]. I have her being testing two times a day Brittnee is calling Boris Vance MD today Dorie, Slot Manager from [facility] called due to she needs our office to call and confirm the diabetic information for the patient. [facility] 5 times per day. They will need new prescriptions for test strips and lancets. Please call back. Patient has been identified by name and birthdate. Closing statement: Results or non-symptom based questions: Thank you for calling [facility], your call will be returned within the next business day. Yany Zuniga documented in this encounter [facility] 09-10-2023 Miscellaneous Notes Patient has been identified by name and date of : Pharmacy phones for refill(s): Requested Prescriptions Pending Prescriptions Disp Refills furosemide (LASIX) 20 mg tablet 90 tablet 3 Sig: Take 1 tablet by mouth once daily. atorvastatin (LIPITOR) 10 mg tablet 30 tablet 5 Sig: Take 1 tablet by mouth daily at bedtime. For cholesterol. Date of last office visit in primary care: 04/29/2023 Date of next office visit in primary care: 10/31/2023 Last 2 Encounter Wt Readings: Date: Wt: 08/29/2023 78.9 kg (174 lb) 04/29/2023 78 kg (172 lb) Previous labs/tests for medication: Cholesterol: Triglycerides (mg/dL) Date Value 04/30/2018 173 HDL Cholesterol (mg/dL) Date Value 08/21/2022 42 07/26/2020 53 HDL Cholesterol, Nonfasting (mg/dL) Date Value 04/29/2023 47 LDL Cholesterol (mg/dL) Date Value 07/26/2020 99 LDL Cholesterol, Nonfasting (mg/dL) Date Value 04/29/2023 70 ALT (U/L) Date Value 04/29/2023 31 07/19/2021 34 Non HDL Cholesterol, Nonfasting (mg/dL) Date Value 04/29/2023 114 03/12/2019 Test sent to [facility]. Non HDL Cholesterol (mg/dL) Date Value 08/21/2022 118 07/26/2020 132 Blood Pressure: BUN (mg/dL) Date Value 04/29/2023 14 07/19/2021 8 Sodium (mmol/L) Date Value 04/29/2023 135 07/19/2021 133 Last 1 Encounter BP Readings: Date: BP: 08/29/2023 118/72 Please advise. Thank you. Maye Ferrer LPN. documented in this encounter [facility] 09-01-2023 Miscellaneous Notes Pharmacy called and were given verification that medication was to be given for 7 days. Jade Macedo LPN Addended by: ALMA GRAMAJO on: 09/01/2023 12:51 PM Modules accepted: Orders I change the order but I still want it for 7 days. Alma Gramajo APRN.CNP [facility] called. Asking if they could replace the Monistat cream to Miconazole 200 mg suppository to meet the needs of the patient. It comes as a 3 day pack. Edilia Rogers RN automobile body worker notified of information below. Joselyn Haji RN There is an interaction with the Diflucan and another medication she is on, that's why I didn't order it. Alma Gramajo APRN.CNP Patients caseworker intake called and notified of results and instructions. Leola states the long-term where Brittnee lives is not licensed to administer the medication and are only able to give verbal prompts. Because patient is very cognitively limited is she able to get oral Diflucan instead of vaginal cream? Will need to call [facility] caseworker intake back. Joselyn Haji RN Please notify patient that she does have a yeast infection. I would like her to use Monistat 7 (or generic) 1 of a applicator full every night for 7 nights. If symptoms do not improve please jazlyn the office. RX sent in. Alma Gramajo APRN.CNP documented in this encounter [facility] 08-29-2023 Note HNO ID: [id number] Author: Alma Gramajo APRN.CNP Service: ? Author Type: Nurse Practitioner Type: Progress Notes Filed: 08/29/2023 4:16 PM Note Text: Brittnee Le is a 57 year old female who presents for vaginal pruritis for 1 week(s). Vaginal discharge: none. Itching: YES Dyspareunia: N/A Fever/chills: No Abdominal pain: No Bladder: Negative for dysuria or frequency Bowel: No blood in stool, pain with BM, tarry stool, persistent diarrhea or constipation Are you currently taking any medications to treat vaginitis: No Do you use feminine sprays, douches or deodorants: No Past medical, surgical, social history, medications and allergies reviewed and updated. OBJECTIVE: Ht 5' 1 (1.55m) Wt 174 lb (78.9kg) LMP 09/12/2017 BMI 32.89 kg/(m2). GENERAL: Well developed, well nourished in no apparent distress ABDOMEN: soft, non-tender, and no masses PELVIC: external genitalia normal, normal Bartholin's glands, urethra, [place] Number Two's glands, no vulvar lesions, no cervical lesions, physiologic discharge present, normal appearing perineal body and perianal region, vaginal area red/irritated BIMANUAL: uterus normal size, shape and consistency, no adnexal masses, and non-tender. ASSESSMENT/PLAN: 1. Itching in the vaginal area - ICD9: 698.1, ICD10: N89.8 Will notify patient of test results. - DIONICIO/TRICHOMONAS NAAT - BACTERIAL VAGINOSIS NAAT - CLOTRIMAZOLE-BETAMETHASONE 1 %-0.05 % TOPICAL CREAM Alma Gramajo APRN.MANUFACTURING SPECIALIST Rubber Goods Inspector offered: Patient declines. Medical Decision Making: Problems: Low: Acute, uncomplicated illness or injury Data: Unique test(s) ordered: 2 Risk: Low: Low risk from testing/treatment Moderate: Drug management Medical Decision Making Level: 3 - Low [facility] 08-29-2023 History of Present illness Narrative Brittnee Le is a 57 year old female who presents for vaginal pruritis for 1 week(s). Vaginal discharge: none. Itching: YES Dyspareunia: N/A Fever/chills: No Abdominal pain: No Bladder: Negative for dysuria or frequency Bowel: No blood in stool, pain with BM, tarry stool, persistent diarrhea or constipation Are you currently taking any medications to treat vaginitis: No Do you use feminine sprays, douches or deodorants: No Past medical, surgical, social history, medications and allergies reviewed and updated. OBJECTIVE: Ht 5' 1 (1.55m) Wt 174 lb (78.9kg) LMP 09/12/2017 BMI 32.89 kg/(m^2). GENERAL: Well developed, well nourished in no apparent distress ABDOMEN: soft, non-tender, and no masses PELVIC: external genitalia normal, normal Bartholin's glands, urethra, [place] Number Two's glands, no vulvar lesions, no cervical lesions, physiologic discharge present, normal appearing perineal body and perianal region, vaginal area red/irritated BIMANUAL: uterus normal size, shape and consistency, no adnexal masses, and non-tender. ASSESSMENT/PLAN: 1. Itching in the vaginal area - ICD9: 698.1, ICD10: N89.8 Will notify patient of test results. - DIONICIO/TRICHOMONAS NAAT - BACTERIAL VAGINOSIS NAAT - CLOTRIMAZOLE-BETAMETHASONE 1 %-0.05 % TOPICAL CREAM Alma Gramajo APRN.CNP Rubber Goods Inspector offered: Patient declines. Medical Decision Making: Problems: Low: Acute, uncomplicated illness or injury Data: Unique test(s) ordered: 2 Risk: Low: Low risk from testing/treatment Moderate: Drug management Medical Decision Making Level: 3 - Low documented in this encounter [facility] 08-28-2023 Miscellaneous Notes Patient has been identified by name and date of : Yes, Provider Limon Date 08-28-23 Time 8:36 am Pharmacy phones for refill(s): Requested Prescriptions Pending Prescriptions Disp Refills insulin glargine (LANTUS SOLOSTAR U-100 INSULIN) 100 unit/mL (3 mL) 5 Each 11 Sig: Give 48 units subq daily at 4 PM or as directed Date of last office visit in primary care: 04/29/2023 Date of next office visit in primary care: 10/31/2023 Last 2 Encounter Wt Readings: Date: Wt: 04/29/2023 78 kg (172 lb) 08/28/2022 83 kg (183 lb) Previous labs/tests for medication: Diabetes: Hemoglobin A1C (%) Date Value 04/29/2023 7.1 08/21/2022 6.9 11/23/2020 6.7 07/26/2020 7.8 Please advise. Thank you. Alma Smart RN. documented in this encounter [facility] 08-21-2023 Miscellaneous Notes [place] it again! There is no longer Humulin R pen except the 500/u concentrated pen. Apparently I am old. The following approved medication requests have been transmitted electronically. Requested Prescriptions Signed Prescriptions Disp Refills insulin lispro (HUMALOG KWIKPEN) 100 unit/mL 1 Each 5 Sig: Sig: Administer Lispro insulin per scale AC breakfast morning, AC lunch, AC dinner, AC bedtime as follows with glucose 150-199 2u, 200-249 3u, 250-299 5u, 300-350 8u, 350-399 11u, 400- 449 14u, 450 and above go to ER. Total per day 64u Authorizing Provider: Alma NUNO PA-C . Alejandro, this is the same Rx that was prescribed yesterday, Curtis is asking if pt can have an Rx for humulin pens, not vials. Is this an option? If so, please send rx to [facility]. Thank you, Shanell Estes LPN The following approved medication requests have been transmitted electronically. Requested Prescriptions Signed Prescriptions Disp Refills insulin regular human (HUMULIN R REGULAR U-100 INSULN) 100 unit/mL injection 1 mL 2 Sig: Administer Humulin insulin per scale AC breakfast morning, AC lunch, AC dinner, AC bedtime as follows with glucose 150-199 2u, 200-249 3u, 250-299 5u, 300-350 8u, 350-399 11u, 400- 449 14u, 450 and above go to ER. Total per day 64u Authorizing Provider: Alma NUNO PA-C Curtis Pollard called and he is requesting for the Humulin R pens instead of vials. They do not have the vials. If the Humulin R pens are not acceptable then asking for a different short acting medication pen. Pt has pen needles and would not need other needles or syringes. Please advise the pharmacy. Was hoping to hear back before lunch so they can try to find Humulin R vials if this is pt's only option. Brandy Mark LPN documented in this encounter [facility] 08-19-2023 Miscellaneous Notes Fransisca Pandya Resident Staff [facility] called and is notified of providers results and instructions. She voices understanding. Priya White, RN Have her cover ac+HS blood sugars as follows until done with prednisone. The following approved medication requests have been transmitted electronically. Requested Prescriptions Signed Prescriptions Disp Refills insulin regular human (HUMULIN R REGULAR U-100 INSULN) 100 unit/mL injection 1 mL 1 Sig: Administer Humulin insulin per scale AC breakfast morning, AC lunch, AC dinner, AC bedtime as follows with glucose 150-199 2u, 200-249 3u, 250-299 5u, 300-350 8u, 350-399 11u, 400- 449 14u, 450 and above go to ER. Total per day 64u Authorizing Provider: Alma NUNO PA-C Fransisca Pandya Resident Staff at the [facility] she reports Pt was in the hospital for COPD and she was placed on antibiotic and prednisone. Yesterday her morning BS was 149 and 3 pm was 207, today am BS was 185 3pm BS was 357 330 pm BS was 356. Pt took her Metformin and 48 units of Lantus, and in the morning she took her Jardiance. She states they are worried about how high her BS is. Please call and advise. documented in this encounter [facility] 08-12-2023 Miscellaneous Notes Patient has been identified by name and date of : Yes, Anusha Hansen RN Date 08/12/2023 Time 10:59 am Pharmacy phones for refill(s): Requested Prescriptions Pending Prescriptions Disp Refills omega-3 fatty acids (FISH OIL CONCENTRATE) 1,000 mg cap 30 capsule 11 Sig: Take 1 capsule by mouth once daily. Cholecalciferol, Vitamin D3, 25 mcg (1,000 unit) cap 30 capsule 11 Sig: Take 1 capsule by mouth once daily. guaiFENesin (MUCINEX) 600 mg 12 hr tablet 24 tablet 0 Sig: Take 2 tablets by mouth two times a day. potassium chloride ER (KLOR-CON) 20 mEq tablet 30 tablet 5 Sig: Take 1 tablet by mouth once daily. Date of last office visit in primary care: 04/29/2023 Date of next office visit in primary care: 10/31/2023 Last 2 Encounter Wt Readings: Date: Wt: 04/29/2023 78 kg (172 lb) 08/28/2022 83 kg (183 lb) Previous labs/tests for medication: Blood Pressure: BUN (mg/dL) Date Value 04/29/2023 14 07/19/2021 8 Sodium (mmol/L) Date Value 04/29/2023 135 07/19/2021 133 Last 1 Encounter BP Readings: Date: BP: 04/29/2023 124/82 Liver Function: ALT (U/L) Date Value 04/29/2023 31 07/19/2021 34 AST (U/L) Date Value 04/29/2023 20 07/19/2021 19 Please advise. Thank you. Anusha Hansen RN. documented in this encounter [facility] 07-16-2023 Note Patient Outreach (IN [facility]) LOTTIEBRITTNEE ([id number]) 1965 F Date Time Provider Department 07/16/23 BORIS VANCE During your visit today, we recorded the following information about you: Allergies As of Date: 07/16/2023 (No Known Allergies) Date Reviewed: 05/26/2023 Reviewed by: Sarina Lee, RT(R) - Partially Assessed Visit Diagnosis:Encounter for screening mammogram for breast cancer [Z12.31] Order(s):[facility] SCREENING [[id number]] Order #: [id number] FUTURE Prescriptions as of 07/21/2023 - aspirin, enteric coated (ASPIRIN, ENTERIC COATED) 325 mg EC tablet Take 1 tablet by mouth once daily. Take with food. - empagliflozin (JARDIANCE) 10 mg tablet Take 1 tablet by mouth daily with breakfast. - metoprolol succinate ER (TOPROL XL) 25 mg 24 hr tablet take 1 tablet by mouth every evening - omeprazole (PRILOSEC) 20 mg capsule Take 1 capsule by mouth daily before breakfast. 1/2 hr before meal. - pramipexole (MIRAPEX) 0.5 mg tablet Take 0.5 tablets by mouth daily at bedtime. - Lancets lancets Test blood sugar(s) 2 times daily. Dx: Other DM Code E11.21 Insulin: Yes - Comp Stocking,Knee,Regular,Med misc Patient to be measured for correct size. 20-30 mmHg Dx: I50.31 - ibuprofen (MOTRIN) 200 mg tablet Take 1 tablet by mouth every 8 hours as needed for pain. - metFORMIN ER (GLUCOPHAGE XR) 500 mg 24 hr tablet Take 2 tablets by mouth twice daily before meals. - ferrous sulfate 325 mg (65 mg iron) tablet Take 1 tablet by mouth twice daily with meals. - polyethylene glycol 3350 (MIRALAX) 17 gram packet Take 1 Packet by mouth once daily. Dissolve dose in 4 - 8 ounces of liquid and take as directed. - atorvastatin (LIPITOR) 10 mg tablet Take 1 tablet by mouth daily at bedtime. For cholesterol. - potassium chloride ER (KLOR-CON) 20 mEq tablet Take 1 tablet by mouth once daily. - fluticasone (FLONASE) 50 mcg/actuation nasal spray Use 2 Sprays in each nostril once daily. Rinse mouth after use. - metroNIDAZOLE (METROGEL) 1 % Topical Gel Apply 1 application to affected area once daily. Location: face - simethicone, chewable (GAS RELIEF, SIMETHICONE,) 80 mg chewable tablet Take 1 tablet by mouth every 6 hours as needed. - insulin needles, DISPOSABLE, (PEN NEEDLE) 31 gauge x 5/16 Use one needle per dose. Once per day. - furosemide (LASIX) 20 mg tablet Take 1 tablet by mouth once daily. - omega-3 fatty acids (FISH OIL CONCENTRATE) 1,000 mg cap Take 1 capsule by mouth once daily. - Cholecalciferol, Vitamin D3, 25 mcg (1,000 unit) cap Take 1 capsule by mouth once daily. - blood sugar diagnostic (BLOOD GLUCOSE TEST) test strip testing twice daily Insulin yes Use as instructed DXE11.21 - Artificial Tear, Hypromellose, (SYSTANE GEL) 0.3 % gel Use 1 Drop in both eyes daily at bedtime. - Lancing Device with Lancets (Care[employer]rix DELICA PLUS LANC DEV) Check blood sugars twice a day. Dx: E11.21 - insulin glargine (LANTUS SOLOSTAR U-100 INSULIN) 100 unit/mL (3 mL) Give 48 units subq daily at 4 PM or as directed - INVEGA SUSTENNA 156 mg/mL syrg injection - clonazePAM (KLONOPIN) 0.5 mg tablet Take 0.5 mg by mouth three times daily as needed. - acetaminophen (TYLENOL EXTRA STRENGTH) 500 mg tablet Take 1-2 tablets by mouth every 8 hours as needed for pain. - Lancets lancets Test blood sugar(s) 2 times daily. Dx: Other DM Code E11.21 Insulin: Yes - guaiFENesin (MUCINEX) 600 mg 12 hr tablet Take 2 tablets by mouth twice daily. - METOPROLOL SUCCINATE ORAL Take 12.5 mg by mouth twice daily. - Blood Pressure Monitor 1 Each twice daily. - cloZAPine (CLOZARIL) 100 mg tablet Take by mouth. Takes 25mg in the morning and 500mg at bedtime - umeclidinium (INCRUSE ELLIPTA) 62.5 mcg/actuation inhaler Inhale 1 Puff as instructed once daily. Inhale one puff once daily. DO NOT CLICK OPEN UNTIL READY FOR DOSE - fluticasone-vilanterol (BREO ELLIPTA) 100-25 mcg/dose inhaler Inhale 1 Inhalation as instructed once daily. Per Dr. Ramirez - Insulin Syringe-Needle U-100 (BD INSULIN SYRINGE) 1 mL 28 gauge x 1/2 syrg Use as directed daily - COMPOUNDED PRESCRIPTION BIPAP of 09/[address] Ramirez - Lancets lancets test BS twice daily 2 days a week- dx 250.00 - non-insulin - blood sugar diagnostic (FREESTYLE LITE STRIPS) test strip test BS twice daily - dx - 250.00 -insulin Yes - Blood-Glucose Meter (FREESTYLE LITE METER) monitoring kit Used once daily to check blood sugar. 250.00 Problem List As Of Date 07/16/2023 Noted Resolved Schizophreniform disorder, chronic condition (H* Other abnormal glucose [R73.09] 04/29/2018 DM w/o Complication Type II [E11.9] 11/08/2008 02/22/2014 Gastritis [K29.70] 08/07/2009 Routine general medical examination at health*08/29/2009 11/26/2011 Class: Chronic Routine gynecological examination [Z01.419] 08/29/2009 11/26/2011 Class: Chronic Vitamin D d (more content not included)... [facility] 07-16-2023 Miscellaneous Notes Pharmacy electronically requests the following refill(s) Requested Prescriptions Pending Prescriptions Disp Refills metoprolol succinate ER (TOPROL XL) 25 mg 24 hr tablet [Pharmacy Med Name: Metoprolol Succinate ER 25MG TB24] 90 tablet 3 Sig: take 1 tablet by mouth every evening Loree Chen RN documented in this encounter [facility] 06-18-2023 Miscellaneous Notes Last Office Visit: 04/29/2023 Future Office Visit: 10/31/2022 Requested Prescriptions Pending Prescriptions Disp Refills omeprazole (PRILOSEC) 20 mg capsule 30 capsule 5 Sig: Take 1 capsule by mouth daily before breakfast. 1/2 hr before meal. Date of Last Labs: 04/29/2023 documented in this encounter [facility] 05-27-2023 Miscellaneous Notes [facility] phones requesting refills as follows: Requested Prescriptions Pending Prescriptions Disp Refills pramipexole (MIRAPEX) 0.5 mg tablet 30 tablet 5 Sig: Take 0.5 tablets by mouth daily at bedtime. DEBBY: 04/29/23 NOV: 10/31/23 Shanell Estes LPN documented in this encounter [facility] 05-26-2023 Note HNO ID: [id number] Author: Loree Chen RN Service: ? Author Type: Registered Nurse Type: Progress Notes Filed: 05/26/2023 12:21 PM Note Text: RADIOLOGY SERVICE PROGRESS NOTE SERVICE DATE: 05/26/2023 SERVICE TIME: 814 PATIENT IDENTITY VERIFICATION COMPLETED USING TWO (2) METHODS: Patient confirmed name and Date of verbally. ALLERGIES AND MEDICATIONS REVIEWED BY: Loree Chen RN PROCEDURE TYPE: NM STRESS: 0.4 mg of Lexiscan was administered IV at 0831 over 10 Seconds by Loree Chen RN Reversal agent used:None LOT [id number] 06/13/26 IV SITE: IV palced by nuclear tecnologist POST EXAM PIV STATUS: Discontinued by Fiber Optic Technician PATIENT DISCHARGED TO: Nuclear Medicine Department for post stress imaging A Diagnostic radioactive procedure has taken place, with no further precautions necessary other than routine body substance precautions. More information regarding radiation safety can be found using this link: [email or web address]%20Medi cine%[email or web address] SIGNATURE: Loree Chen RN PATIENT NAME:Brittnee Le DATE: 05/26/23 TIME: 12:20 PM [facility] 05-26-2023 Miscellaneous Notes TC to both patient and guardian who both verbalized understanding of providers message with no questions at this time. CHRIS Antunez ----- Message from Radha Batista APRN.MANUFACTURING SPECIALIST sent at 05/26/2023 2:00 PM EDT ----- Can please let patient/caregiver know that her stress testing was negative/normal. Radha Batista APRN.MANUFACTURING SPECIALIST documented in this encounter [facility] 05-26-2023 History of Present illness Narrative RADIOLOGY SERVICE PROGRESS NOTE SERVICE DATE: 05/26/2023 SERVICE TIME: 814 PATIENT IDENTITY VERIFICATION COMPLETED USING TWO (2) METHODS: Patient confirmed name and Date of verbally. ALLERGIES AND MEDICATIONS REVIEWED BY: Loree Chen RN PROCEDURE TYPE: NM STRESS: 0.4 mg of Lexiscan was administered IV at 0831 over 10 Seconds by Loree Chen RN Reversal agent used:None LOT [id number] 06/13/26 IV SITE: IV palced by nuclear tecnologist POST EXAM PIV STATUS: Discontinued by Fiber Optic Technician PATIENT DISCHARGED TO: Nuclear Medicine Department for post stress imaging A Diagnostic radioactive procedure has taken place, with no further precautions necessary other than routine body substance precautions. More information regarding radiation safety can be found using this link: [email or web address] %[email or web address] SIGNATURE: Loree Chen RN PATIENT NAME:Brittnee Le DATE: 05/26/23 TIME: 12:20 PM documented in this encounter [facility] 05-26-2023 Note HNO ID: [id number] Author: Sarina Lee RT(R) Service: Nuclear Medicine Author Type: Technologist Type: Progress Notes Filed: 05/26/2023 2:24 PM Note Text: RADIOLOGY SERVICE PROGRESS NOTE SERVICE DATE: 05/26/2023 SERVICE TIME: 07:05 AM PATIENT IDENTITY VERIFICATION COMPLETED USING TWO (2) STANDARD IDENTIFIERS: Name and Date of confirmed by patient verbally FALL SCREENING: Has the patient had 2 falls in the last year or 1 fall with injury or currently using an Ambulatory Assistive Device (Walker, Cane, Wheelchair, Crutches, etc.)? No PATIENT GENDER DATA: .female : No ALLERGIES: Reviewed and unchanged MEDICATIONS REVIEWED: No PATIENT RELEVANT IMPLANT DATA REVIEWED: Not Applicable CREATININE: Creatinine Date Value Ref Range Status 04/29/2023 0.64 0.58 - 0.96 mg/dL Final 08/21/2022 0.63 0.58 - 0.96 mg/dL Final 07/19/2021 0.52 (L) 0.58 - 0.96 mg/dL Final Estimated Glomerular Filtration Rate Date Value Ref Range Status 04/29/2023 102 >=60 mL/min/1.73m? Final Comment: Estimated Glomerular Filtration Rate (eGFR) is calculated using the 2020 CKD-EPI creatinine equation. This equation utilizes serum creatinine, sex, and age as parameters. The creatinine assay has traceable calibration to isotope dilution-mass spectrometry. Refer to KDIGO guidelines for clinical interpretation. In patients with unstable renal function, e.g. those with acute kidney injury, the eGFR may not accurately reflect actual GFR. eGFR- Date Value Ref Range Status 07/19/2021 >60 Final P.O.C.T. RESULTS: N/A May 26, [address] PERFORMED: No IV SITE: Ambulatory: A peripheral IV was started in the Right antecubital site with a Angio cath: 22 gauge. POST EXAM PIV STATUS: Discontinued PROCEDURE TYPE: NM Stress: 11.8 mCi [id number] was administered IV for Rest Imaging at 07:20 by Sarina Lee. 31.3 mCi [id number] was administered IV for Stress Imaging at 08:31 by Sarina Lee. ADMINISTRATION TIME: PATIENT DISCHARGED TO: Ambulatory patient, left AR department area. A Diagnostic radioactive procedure has taken place, with no further precautions necessary other than routine body substance precautions. More information regarding radiation safety can be found using this link: [email or web address] tection [email or web address]%20Nuclear%20Medi cine%[email or web address] SIGNATURE: RT Lemuel(R) PATIENT NAME: Brittnee Le DATE: May 26, 2023 TIME: 09:40 AM PAGER/CONTACT #: [facility] 05-26-2023 History of Present illness Narrative RADIOLOGY SERVICE PROGRESS NOTE SERVICE DATE: 05/26/2023 SERVICE TIME: 07:05 AM PATIENT IDENTITY VERIFICATION COMPLETED USING TWO (2) STANDARD IDENTIFIERS: Name and Date of confirmed by patient verbally FALL SCREENING: Has the patient had 2 falls in the last year or 1 fall with injury or currently using an Ambulatory Assistive Device (Walker, Cane, Wheelchair, Crutches, etc.)? No PATIENT GENDER DATA: .female : No ALLERGIES: Reviewed and unchanged MEDICATIONS REVIEWED: No PATIENT RELEVANT IMPLANT DATA REVIEWED: Not Applicable CREATININE: Creatinine Date Value Ref Range Status 04/29/2023 0.64 0.58 - 0.96 mg/dL Final 08/21/2022 0.63 0.58 - 0.96 mg/dL Final 07/19/2021 0.52 (L) 0.58 - 0.96 mg/dL Final Estimated Glomerular Filtration Rate Date Value Ref Range Status 04/29/2023 102 >=60 mL/min/1.73m Final Comment: Estimated Glomerular Filtration Rate (eGFR) is calculated using the 2020 CKD-EPI creatinine equation. This equation utilizes serum creatinine, sex, and age as parameters. The creatinine assay has traceable calibration to isotope dilution-mass spectrometry. Refer to KDIGO guidelines for clinical interpretation. In patients with unstable renal function, e.g. those with acute kidney injury, the eGFR may not accurately reflect actual GFR. eGFR- Date Value Ref Range Status 07/19/2021 >60 Final P.O.C.T. RESULTS: N/A May 26, [address] PERFORMED: No IV SITE: Ambulatory: A peripheral IV was started in the Right antecubital site with a Angio cath: 22 gauge. POST EXAM PIV STATUS: Discontinued PROCEDURE TYPE: NM Stress: 11.8 mCi [id number] was administered IV for [facility] at 07:20 by Sarina Lee. 31.3 mCi [id number] was administered IV for Stress Imaging at 08:31 by Sarina Lee. ADMINISTRATION TIME: PATIENT DISCHARGED TO: Ambulatory patient, left [place] department area. A Diagnostic radioactive procedure has taken place, with no further precautions necessary other than routine body substance precautions. More information regarding radiation safety can be found using this link: [email or web address] SIGNATURE: MARILUZ Hdez) PATIENT NAME: Brittnee Le DATE: May 26, 2023 TIME: 09:40 AM PAGER/CONTACT #: documented in this encounter [facility] 05-23-2023 Miscellaneous Notes [facility] asking pcp to send order for a generic lancet for patient. Reports patient unable to use the one touch lancets with the system she is using now. Pended. Last appt in pcp office: 12-20-22 Next appt: 10-31-23 documented in this encounter [facility] 05-08-2023 Miscellaneous Notes Patient was made aware of the results. Patient verbalizes understanding. Nisha Oneill Ma ----- Message from Radha Batista APRN.MANUFACTURING SPECIALIST sent at 05/07/2023 5:32 PM EDT ----- Can please let patient/pillowcase folder know that her blood count was improved and stable. Radha Batista APRN.MANUFACTURING SPECIALIST documented in this encounter [facility] 04-29-2023 Note HNO ID: [id number] Author: Radha Batista APRN.MANUFACTURING SPECIALIST Service: ? Author Type: Nurse Practitioner Type: Progress Notes Filed: 04/29/2023 5:00 PM Note Text: This is a 57 year old female who presents today with: Patient presents with: 6 Month Exam HISTORY OF PRESENT ILLNESS: Brittnee Le is a 57 year old female. Patient presents with: 6 Month Exam Presents today w/ social and human services assistant. Pt presents today for follow-up. Refers that she has been having bouts of sickness. Social work reports that patient will have this complaint when anxiety is high. They would like to ensure that nothing is physically wrong causing her symptoms prior to following up with psychiatry. DM: Reports overall feeling well. Medication side effects: No. Home sugar checks: twice daily Hypoglycemic spells: No. Watching diet: tries to watch the carbs. . Unexpected weight loss: Yes. Has been walking more -- lost 11 pounds. Polyuria, polydipsia: No. Refers that she likes to drink, but is on restricted fluids. Vision Changes: did have some changes with her vision, but better now. Foot lesions or numbness or pain: No. Sometimes will get some numbness in her arms when she is sleeping. HYPERLIPIDEMIA: Patient is taking medications: Yes. Patient is watching diet: Yes. Patient denies myalgias: Yes. Patient denies gi upset: Yes HTN: Patient is compliant with meds Yes Monitors bp at home: Yes. 120's - 130's. Denies side effects: Yes. Chest pain: Yes. -- see below. Dyspnea: Yes -- sometimes with her cpap on. Edema: No. Palpitations: Yes. When I'm overexerted . Syncope: No. Headache: No. Dizziness: No. GERD: Controlled w/ PPI. Mood: Presents with social and human services assistant. Refers that there has been some medication adjustments by psychiatry. Refers patient refers that she has been hearing more voices. Concern because this could impact her living situation. She has been having some problems with fatigue. burlap worker disclosed that patient is afraid that she is dying because of fatigue and recent weight loss. Chest pain: Refers that she gets a pain in her chest once in a while -- will last about 20 minutes. Laying down helps the pain. Refers when she has it, she can't catch her breath. No dizziness. Will feel sick to her stomach. She does follow with cardiology, but return visit isn't until July. PAST MEDICAL HISTORY: PAST MEDICAL HISTORY Diagnosis Date Bilateral pneumonia 07/23/2018 Admit [facility]: pneumococcal suspected, neg culture. 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 [facility], pt was on metformin for a while but taken off - pt never told if she had DM or not Major depressive disorder, recurrent episode, unspecified Nonspecific elevation of levels of transaminase or lactic acid dehydrogenase (LDH) LIDA (obstructive sleep apnea) Pneumonia Schizophreniform disorder, chronic condition (HCC) Simple endometrial hyperplasia without atypia mirena IUD 01/2011 PAST SURGICAL HISTORY Procedure Laterality Date CHOLECYSTECTOMY 1998 open COLONOSCOPY W/BIOPSY SINGLE/MULTIPLE 12/19/2016 Normal colonoscopy-10 year follow-up PAST SURGICAL HISTORY OF 1982 corrective jaw surgery ALLERGIES Patient has no known allergies. MEDICATIONS Current Outpatient Medications Medication Sig ibuprofen (MOTRIN) 200 mg tablet Take 1 tablet by mouth every 8 hours as needed for pain. metFORMIN ER (GLUCOPHAGE XR) 500 mg 24 hr tablet Take 2 tablets by mouth twice daily before meals. ferrous sulfate 325 mg (65 mg iron) tablet Take 1 tablet by mouth twice daily with meals. polyethylene glycol 3350 (MIRALAX) 17 gram packet Take 1 Packet by mouth once daily. Dissolve dose in 4 - 8 ounces of liquid and take as directed. atorvastatin (LIPITOR) 10 mg tablet Take 1 tablet by mouth daily at bedtime. For cholesterol. empagliflozin (JARDIANCE) 10 mg tablet Take 1 tablet by mouth daily with breakfast. potassium chloride ER (KLOR-CON) 20 mEq tablet Take 1 tablet by mouth once daily. metroNIDAZOLE (METROGEL) 1 % Topical Gel Apply 1 application to affected area once daily. Location: face omeprazole (PRILOSEC) 20 mg capsule Take 1 capsule by mouth daily before breakfast. 1/2 hr before meal. simethicone, chewable (GAS RELIEF, SIMETHICONE,) 80 mg chewable tablet Take 1 tablet by mouth every 6 hours as needed. insulin needles, DISPOSABLE, (PEN NEEDLE) 31 gauge x 5/16 Use one needle per dose. Once per day. furosemide (LASIX) 20 mg tablet Take 1 tablet by mouth once daily. omega-3 fatty acids (FISH OIL CONCENTRATE) 1,000 mg cap Take 1 capsule by mouth once daily. Cholecalciferol, Vitamin D3, 25 mcg (1,000 unit) cap Take 1 capsule by mouth once daily. blood sugar diagnostic (BLOOD GLUCOSE TEST) test strip testing twice daily Insulin yes Use as instructed DXE11.21 Artificial Tear, Hypromello (more content not included)... [facility] 04-29-2023 Instructions Radha Batista APRN.PAVITHRA - 04/29/2023 3:22 PM EDT Get the labwork. Get the stool sample for hidden blood. Schedule the stress testing. We'll let you know when I receive the lab results back. documented in this encounter [facility] 04-29-2023 History of Present illness Narrative This is a 57 year old female who presents today with: Patient presents with: 6 Month Exam HISTORY OF PRESENT ILLNESS: Brittnee Le is a 57 year old female. Patient presents with: 6 Month Exam Presents today w/ social and human services assistant. Pt presents today for follow-up. Refers that she has been having bouts of sickness. Social work reports that patient will have this complaint when anxiety is high. They would like to ensure that nothing is physically wrong causing her symptoms prior to following up with psychiatry. DM: Reports overall feeling well. Medication side effects: No. Home sugar checks: twice daily Hypoglycemic spells: No. Watching diet: tries to watch the carbs. . Unexpected weight loss: Yes. Has been walking more -- lost 11 pounds. Polyuria, polydipsia: No. Refers that she likes to drink, but is on restricted fluids. Vision Changes: did have some changes with her vision, but better now. Foot lesions or numbness or pain: No. Sometimes will get some numbness in her arms when she is sleeping. HYPERLIPIDEMIA: Patient is taking medications: Yes. Patient is watching diet: Yes. Patient denies myalgias: Yes. Patient denies gi upset: Yes HTN: Patient is compliant with meds Yes Monitors bp at home: Yes. 120's - 130's. Denies side effects: Yes. Chest pain: Yes. -- see below. Dyspnea: Yes -- sometimes with her cpap on. Edema: No. Palpitations: Yes. When I'm overexerted . Syncope: No. Headache: No. Dizziness: No. GERD: Controlled w/ PPI. Mood: Presents with social and human services assistant. Refers that there has been some medication adjustments by psychiatry. Refers patient refers that she has been hearing more voices. Concern because this could impact her living situation. She has been having some problems with fatigue. burlap worker disclosed that patient is afraid that she is dying because of fatigue and recent weight loss. Chest pain: Refers that she gets a pain in her chest once in a while -- will last about 20 minutes. Laying down helps the pain. Refers when she has it, she can't catch her breath. No dizziness. Will feel sick to her stomach. She does follow with cardiology, but return visit isn't until July. PAST MEDICAL HISTORY: PAST MEDICAL HISTORY Diagnosis Date Bilateral pneumonia 07/23/2018 Admit [facility]: pneumococcal suspected, neg culture. 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 [facility], pt was on metformin for a while but taken off - pt never told if she had DM or not Major depressive disorder, recurrent episode, unspecified Nonspecific elevation of levels of transaminase or lactic acid dehydrogenase (LDH) LIDA (obstructive sleep apnea) Pneumonia Schizophreniform disorder, chronic condition (HCC) Simple endometrial hyperplasia without atypia mirena IUD 01/2011 PAST SURGICAL HISTORY Procedure Laterality Date CHOLECYSTECTOMY 1998 open COLONOSCOPY W/BIOPSY SINGLE/MULTIPLE 12/19/2016 Normal colonoscopy-10 year follow-up PAST SURGICAL HISTORY OF 1982 corrective jaw surgery ALLERGIES Patient has no known allergies. MEDICATIONS Current Outpatient Medications Medication Sig ibuprofen (MOTRIN) 200 mg tablet Take 1 tablet by mouth every 8 hours as needed for pain. metFORMIN ER (GLUCOPHAGE XR) 500 mg 24 hr tablet Take 2 tablets by mouth twice daily before meals. ferrous sulfate 325 mg (65 mg iron) tablet Take 1 tablet by mouth twice daily with meals. polyethylene glycol 3350 (MIRALAX) 17 gram packet Take 1 Packet by mouth once daily. Dissolve dose in 4 - 8 ounces of liquid and take as directed. atorvastatin (LIPITOR) 10 mg tablet Take 1 tablet by mouth daily at bedtime. For cholesterol. empagliflozin (JARDIANCE) 10 mg tablet Take 1 tablet by mouth daily with breakfast. potassium chloride ER (KLOR-CON) 20 mEq tablet Take 1 tablet by mouth once daily. metroNIDAZOLE (METROGEL) 1 % Topical Gel Apply 1 application to affected area once daily. Location: face omeprazole (PRILOSEC) 20 mg capsule Take 1 capsule by mouth daily before breakfast. 1/2 hr before meal. simethicone, chewable (GAS RELIEF, SIMETHICONE,) 80 mg chewable tablet Take 1 tablet by mouth every 6 hours as needed. insulin needles, DISPOSABLE, (PEN NEEDLE) 31 gauge x 5/16 Use one needle per dose. Once per day. furosemide (LASIX) 20 mg tablet Take 1 tablet by mouth once daily. omega-3 fatty acids (FISH OIL CONCENTRATE) 1,000 mg cap Take 1 capsule by mouth once daily. Cholecalciferol, Vitamin D3, 25 mcg (1,000 unit) cap Take 1 capsule by mouth once daily. blood sugar diagnostic (BLOOD GLUCOSE TEST) test strip testing twice daily Insulin yes Use as instructed DXE11.21 Artificial Tear, Hypromellose, (SYSTANE GEL) 0.3 % gel Use 1 Drop in both eyes daily at bedtime. Lancing Device with Lancets ([employer] DELICA PLUS LANC DEV) Check blood sugars twice a day. Dx: E11.21 metoprolol succinate ER (TOPROL XL) 25 mg 24 hr tablet TAKE 1 TABLET BY MOUTH EVERY EVENING aspirin, enteric coated (ASPIRIN, ENTERIC COATED) 325 mg EC tablet Take 1 tablet by mouth once daily. Take with food. insulin glargine (LANTUS SOLOSTAR U-100 INSULIN) 100 unit/mL (3 mL) Give 48 units subq daily at 4 PM or as directed INVEGA SUSTENNA 156 mg/mL syrg injection pramipexole (MIRAPEX) 0.5 mg tablet Take 0.5 tablets by mouth daily at bedtime. clonazePAM (KLONOPIN) 0.5 mg tablet Take 0.5 mg by mouth three times daily as needed. acetaminophen (TYLENOL EXTRA STRENGTH) 500 mg tablet Take 1-2 tablets by mouth every 8 hours as needed for pain. Lancets lancets Test blood sugar(s) 2 times daily. Dx: Other DM Code E11.21 Insulin: Yes guaiFENesin (MUCINEX) 600 mg 12 hr tablet Take 2 tablets by mouth twice daily. METOPROLOL SUCCINATE ORAL Take 12.5 mg by mouth twice daily. Blood Pressure Monitor 1 Each twice daily. cloZAPine (CLOZARIL) 100 mg tablet Take by mouth. Takes 25mg in the morning and 500mg at bedtime umeclidinium (INCRUSE ELLIPTA) 62.5 mcg/actuation inhaler Inhale 1 Puff as instructed once daily. Inhale one puff once daily. DO NOT CLICK OPEN UNTIL READY FOR DOSE fluticasone-vilanterol (BREO ELLIPTA) 100-25 mcg/dose inhaler Inhale 1 Inhalation as instructed once daily. Per Dr. Ramirez Comp Stocking,Knee,Regular,Med [facility] Patient to be measured for correct size. 20-30 mmHg Dx: I50.31 Insulin Syringe-Needle U-100 (BD INSULIN SYRINGE) 1 mL 28 gauge x 1/2 syrg Use as directed daily COMPOUNDED PRESCRIPTION BIPAP of 09/[address] Ramirez Lancets lancets test BS twice daily 2 days a week- dx 250.00 - non-insulin blood sugar diagnostic (FREESTYLE LITE STRIPS) test strip test BS twice daily - dx - 250.00 -insulin Yes Blood-Glucose Meter (FREESTYLE LITE METER) monitoring kit Used once daily to check blood sugar. 250.00 fluticasone (FLONASE) 50 mcg/actuation nasal spray Use 2 Sprays in each nostril once daily. Rinse mouth after use. glipiZIDE (GLUCOTROL) 5 mg tablet Take 1 tablet by mouth twice daily. pravastatin (PRAVACHOL) 20 mg tablet Take 1 tablet by mouth once daily. HOLD 06/29/21 for 4 weeks due to leg aches and cramps (Patient not taking: Reported on 06/03/2022) lubiprostone (AMITIZA) 24 mcg capsule Take 1 capsule by mouth twice daily with meals. (Patient not taking: No sig reported) Ferrous Gluconate (FERGON) 324 mg (38 mg iron) tablet Take 1 tablet by mouth twice daily with meals. polyethylene glycol 3350 (MIRALAX) 17 gram/dose powder Take 17 .5 tsps as needed for constipation. magnesium hydroxide (MILK OF MAGNESIA) 400 mg/5 mL suspension TAKE 15ML BY MOUTH DAILY NEEDED FOR CONSTIPATION (FOR NO BOWEL MOVEMENT AFTER 3 risperiDONE orally disintegrating (RISPERDAL M) 1 mg disintegrating tablet Take 2 mg by mouth daily at bedtime. albuterol HFA (PROAIR HFA) 90 mcg/actuation inhaler Inhale 2 Puffs as instructed every 4 hours as needed (FOR COUGH OR WHEEZE). desvenlafaxine ER (PRISTIQ) 50 mg 24 hr tablet Take 50 mg by mouth once daily. (Patient not taking: Reported on 12/03/2021 ) risperiDONE (RISPERDAL CONSTA) 50 mg/2 mL injection Inject 2 mL intramuscularly every 2 weeks. (Patient not taking: Reported on 07/05/2022) No current facility-administered medications for this visit. FAMILY HISTORY Problem Relation Age of Onset Psychiatry Mother depression Psychiatry Sister deperssion other (lung cancer) Paternal Grandfather Social History Tobacco Use Smoking status: Former Packs/day: 2.00 Years: 20.00 Total pack years: 40.00 Types: Cigarettes Quit date: 01/11/2014 Years since quittin.3 Smokeless tobacco: Never Vaping Use Vaping Use: Never used Substance Use Topics Alcohol use: No Drug use: No Comment: marijunan- Teen yrs, but not now EXAM: BP 124/82 Pulse 109 Resp 16 Wt 78 kg (172 lb) LMP 09/12/2017 SpO2 92% BMI 32.50 kg/m PHYSICAL EXAM: General Appearance: Well appearing, alert, in no acute distress, well-hydrated, well nourished.. Skin: Skin color, texture, turgor normal, no suspicious rashes or lesions. Head: Normocephalic, no masses, lesions, tenderness or abnormalities. Eyes: Anicteric sclera. Pupils are equally round and reactive to light. Extraocular movements are intact. Ears: External ears normal, canals clear. Normal TMs bilaterally. Oropharynx: Lips, mucosa, and tongue normal, teeth and gums normal, oropharynx normal. Neck: Supple, no adenopathy; thyroid symmetric, normal size, no bruits. Lungs: Lungs clear to auscultation. No wheezing, rhonchi, rales.. Heart: RRR without murmur, gallop, or rubs. No ectopy. Abdomen: Normal abdominal exam, Abdomen soft, non-tender. Bowel sounds normal. No masses, organomegaly. Extremities: No deformities, edema, skin discoloration, clubbing or cyanosis. Good capillary refill. Neurologic: Gait normal. ASSESSMENT/PLAN: 1. Chest pain, unspecified type - ICD9: 786.50, ICD10: R07.9 (primary diagnosis) Chest pain of unclear etiology, patient with significant risk factor(s) of Diabetes Mellitus and Hyperlipidemia - Electrocardiogram: ST without ectopy of ST changes. - Stress testing- see orders - ECG COMPLETE - NM CARDIAC PERF STRESS/PHARM - REGADENOSON 0.4 MG/5 ML INTRAVENOUS SYRINGE - INSERT IV (NH,ME) - IV DISCONTINUE Will also forward note to pt's reproductive endocrinologist for review. 2. Weight loss - ICD9: 783.21, ICD10: R63.4 Will get work-up. Suspect more related to increase in walking. - CBC + DIFF - HGB A1C - TSH BLD - T4 FREE/FREE THYROX - FECAL OCCULT BLOOD TEST - URINALYSIS, WITH MICROSCOPIC - URINE CULTURE 3. Type 2 diabetes mellitus with diabetic nephropathy, with long-term current use of insulin (HCC) - ICD9: 250.40, 583.81, V58.67, ICD10: E11.21, Z79.4 - Control undetermined, due for labs - Continue current medications - A1C - COMP METABOLIC PANEL 4. Hyperlipidemia, unspecified hyperlipidemia type - ICD9: 272.4, ICD10: E78.5 - Control undetermined, due for labs - Continue current medications - Counseled on healthy diet and regular exercise - COMP METABOLIC PANEL - LIPID PANEL, NONFASTING 5. GERD without esophagitis - ICD9: 530.81, ICD10: K21.9 Controlled on PPI -- check mag. - MAGNESIUM BLD 6. Acute diastolic CHF (congestive heart failure) (HCC) - ICD9: 428.31, 428.0, ICD10: I50.31 Needs new compression stockings. - COMPRESSION STOCKING, KNEE HIGH,REGULAR LENGTH,MEDIUM 7. Schizophreniform disorder, chronic condition (HCC) - ICD9: 295.42, ICD10: F20.81 Per psychiatry. 8. Fatigue, unspecified type - ICD9: 780.79, ICD10: R53.83 Compliant with cpap. Get labs/urine. Follow-up pending results. - CBC + DIFF - COMP METABOLIC PANEL - HGB A1C - TSH BLD - T4 FREE/FREE THYROX - URINALYSIS, WITH MICROSCOPIC - URINE CULTURE Discussed treatment plan and patient voices understanding. Patient's questions answered appropriately. Medications and potential side effects were discussed and patient voices understanding. Return to the office as scheduled or as needed for worsening/no improvement. Radha Batista APRN.MANUFACTURING SPECIALIST I spent a total of 50 minutes on the date of the service which included preparing to see the patient, [id number] patient care, completing clinical documentation, obtaining and/or reviewing separately obtained history, performing a medically appropriate examination, counseling and educating the patient/family/caregiver, and ordering medications, tests, or procedures. documented in this encounter [facility] 02-26-2023 Miscellaneous Notes [facility] phones requesting refills as follows: Requested Prescriptions Pending Prescriptions Disp Refills potassium chloride ER (KLOR-CON) 20 mEq tablet 30 tablet 5 Sig: Take 1 tablet by mouth once daily. DEBBY: 12/20/22 (VV) NOV: 03/12/23 Last Refill: 09/11/22 #30 5 refills Shanell Estes LPN documented in this encounter [facility] 02-14-2023 Miscellaneous Notes Patient has been identified by name and date of : Pharmacy phones for refill(s): Requested Prescriptions Pending Prescriptions Disp Refills fluticasone (FLONASE) 50 mcg/actuation nasal spray 1 Each 0 Sig: Use 2 Sprays in each nostril once daily. Rinse mouth after use. Date of last office visit in primary care: 12/20/2022, has appt 03/12/2023 Last 2 Encounter Wt Readings: Date: Wt: 08/28/2022 83 kg (183 lb) 08/08/2022 82.8 kg (182 lb 9.6 oz) Previous labs/tests for medication: Not applicable Please advise. Thank you. Maye Ferrer LPN documented in this encounter [facility] 01-30-2023 Miscellaneous Notes Patient has been identified by name and date of : Yes, Anusha Hansen RN Date 01/30/2023 Time 9:01 am Pharmacy phones for refill(s): Requested Prescriptions Pending Prescriptions Disp Refills metroNIDAZOLE (METROGEL) 1 % Topical Gel 60 g 5 Sig: Apply 1 application to affected area once daily. Location: face omeprazole (PRILOSEC) 20 mg capsule 30 capsule 5 Sig: Take 1 capsule by mouth daily before breakfast. 1/2 hr before meal. Date of last office visit with pcp: 12/20/2022 Future appt: 03/12/2023 Last 2 Encounter Wt Readings: Date: Wt: 08/28/2022 83 kg (183 lb) 08/08/2022 82.8 kg (182 lb 9.6 oz) Previous labs/tests for medication: Blood Pressure: BUN (mg/dL) Date Value 08/21/2022 17 07/19/2021 8 Sodium (mmol/L) Date Value 08/21/2022 139 07/19/2021 133 Last 1 Encounter BP Readings: Date: BP: 08/28/2022 124/72 Liver Function: ALT (U/L) Date Value 08/21/2022 36 07/19/2021 34 AST (U/L) Date Value 08/21/2022 26 07/19/2021 19 Please advise. Thank you. Anusha Hansen RN documented in this encounter [facility] 12-20-2022 Note HNO ID: [id number] Author: Boris Vance MD Service: ? Author Type: Physician Type: Progress Notes Filed: 12/20/2022 3:49 PM Note Text: Patient presents with: Covid Positive HPI:This Team Access Model visit is a phone encounter. It required patient-provider interaction for the medical decision making as documented below. Patient has elected to have a visit through distance medicine I have communicated my name and active licensure. The patient's identity and physical location were verified at the time of this visit. Either the patient or their legal loss prevention representative has been informed of the risks and benefits of -- and alternatives to -- treatment through a remote evaluation and consents to proceed with the evaluation remotely. Started getting sick two days ago. No cough. Very congested. Is chilled. No fever. Breathing well other than with her nose. Some sore throat. No nausea or vomiting. No diarrhea. Use mucinex. MEDICATIONS: Current Outpatient Medications Medication Sig empagliflozin (JARDIANCE) 10 mg tablet Take 1 tablet by mouth daily with breakfast. simethicone, chewable (GAS RELIEF, SIMETHICONE,) 80 mg chewable tablet Take 1 tablet by mouth every 6 hours as needed. insulin needles, DISPOSABLE, (PEN NEEDLE) 31 gauge x 5/16 Use one needle per dose. Once per day. furosemide (LASIX) 20 mg tablet Take 1 tablet by mouth once daily. atorvastatin (LIPITOR) 10 mg tablet Take 1 tablet by mouth daily at bedtime. For cholesterol. omega-3 fatty acids (FISH OIL CONCENTRATE) 1,000 mg cap Take 1 capsule by mouth once daily. Cholecalciferol, Vitamin D3, 25 mcg (1,000 unit) cap Take 1 capsule by mouth once daily. potassium chloride ER (K-DUR, KLOR-CON) 20 mEq tablet Take 1 tablet by mouth once daily. blood sugar diagnostic (BLOOD GLUCOSE TEST) test strip testing twice daily Insulin yes Use as instructed DXE11.21 Artificial Tear, Hypromellose, (SYSTANE GEL) 0.3 % gel Use 1 Drop in both eyes daily at bedtime. metroNIDAZOLE (METROGEL) 1 % Topical Gel Apply 1 application to affected area once daily. Location: face Lancing Device with Lancets ([employer] PLUS LANC DEV) Check blood sugars twice a day. Dx: E11.21 metoprolol succinate ER (TOPROL XL) 25 mg 24 hr tablet TAKE 1 TABLET BY MOUTH EVERY EVENING omeprazole (PRILOSEC) 20 mg capsule Take 1 capsule by mouth daily before breakfast. 1/2 hr before meal. aspirin, enteric coated (ASPIRIN, ENTERIC COATED) 325 mg EC tablet Take 1 tablet by mouth once daily. Take with food. insulin glargine (LANTUS SOLOSTAR U-100 INSULIN) 100 unit/mL (3 mL) Give 48 units subq daily at 4 PM or as directed INVEGA SUSTENNA 156 mg/mL syrg injection pramipexole (MIRAPEX) 0.5 mg tablet Take 0.5 tablets by mouth daily at bedtime. metFORMIN ER (GLUCOPHAGE XR) 500 mg 24 hr tablet Take 2 tablets by mouth twice daily before meals. ferrous sulfate 325 mg (65 mg iron) tablet Take 1 tablet by mouth twice daily with meals. polyethylene glycol 3350 (MIRALAX) 17 gram packet Take 1 Packet by mouth once daily. Dissolve dose in 4 - 8 ounces of liquid and take as directed. glipiZIDE (GLUCOTROL) 5 mg tablet Take 1 tablet by mouth twice daily. pravastatin (PRAVACHOL) 20 mg tablet Take 1 tablet by mouth once daily. HOLD 06/29/21 for 4 weeks due to leg aches and cramps (Patient not taking: Reported on 06/03/2022) ibuprofen (MOTRIN) 200 mg tablet Take 1 tablet by mouth every 8 hours as needed for pain. lubiprostone (AMITIZA) 24 mcg capsule Take 1 capsule by mouth twice daily with meals. (Patient not taking: No sig reported) Ferrous Gluconate (FERGON) 324 mg (38 mg iron) tablet Take 1 tablet by mouth twice daily with meals. clonazePAM (KLONOPIN) 0.5 mg tablet Take 0.5 mg by mouth three times daily as needed. polyethylene glycol 3350 (MIRALAX) 17 gram/dose powder Take 17 .5 tsps as needed for constipation. acetaminophen (TYLENOL EXTRA STRENGTH) 500 mg tablet Take 1-2 tablets by mouth every 8 hours as needed for pain. magnesium hydroxide (MILK OF MAGNESIA) 400 mg/5 mL suspension TAKE 15ML BY MOUTH DAILY NEEDED FOR CONSTIPATION (FOR NO BOWEL MOVEMENT AFTER 3 Lancets lancets Test blood sugar(s) 2 times daily. Dx: Other DM Code E11.21 Insulin: Yes guaiFENesin (MUCINEX) 600 mg 12 hr tablet Take 2 tablets by mouth twice daily. METOPROLOL SUCCINATE ORAL Take 12.5 mg by mouth twice daily. (Patient not taking: Reported on 12/03/2021 ) Blood Pressure Monitor 1 Each twice daily. risperiDONE orally disintegrating (RISPERDAL M) 1 mg disintegrating tablet Take 2 mg by mouth daily at bedtime. cloZAPine (CLOZARIL) 100 mg tablet Take by mouth. Takes 25mg in the morning and 500mg at bedtime albuterol HFA (PROAIR HFA) 90 mcg/actuation inhaler Inhale 2 Puffs as instructed every 4 hours as needed (FOR COUGH OR WHEEZE). umeclidinium (INCRUSE ELLIPTA) 62.5 mcg/actuation inhaler Inhale 1 Puff as instructed once daily. Inhale one puff o (more content not included)... [facility] 12-09-2022 Miscellaneous Notes Patient has been identified by name and date of : Yes, Provider Dr. Vance Date 12-09-22 Time 10:12 am Pharmacy phones for refill(s): Requested Prescriptions Pending Prescriptions Disp Refills empagliflozin (JARDIANCE) 10 mg tablet 30 tablet 3 Sig: Take 1 tablet by mouth daily with breakfast. Date of last office visit with pcp: 08-28-22. Next appt: 03-12-23 Last 2 Encounter Wt Readings: Date: Wt: 08/28/2022 83 kg (183 lb) 08/08/2022 82.8 kg (182 lb 9.6 oz) Previous labs/tests for medication: Diabetes: Hemoglobin A1C (%) Date Value 08/21/2022 6.9 11/23/2020 6.7 07/26/2020 7.8 Please advise. Thank you. Alma Smart RN documented in this encounter [facility] 10-08-2022 Miscellaneous Notes Last Office Visit: 08/28/2022 Future Office Visit: 03/12/2023 Requested Prescriptions Pending Prescriptions Disp Refills insulin needles, DISPOSABLE, (PEN NEEDLE) 31 gauge x 5/16 100 Each 11 Sig: Use one needle per dose. Once per day. Date of Last Labs: 08/21/2022 documented in this encounter [facility] 10-04-2022 Miscellaneous Notes Patient has been identified by name and date of : Yes Last office visit in this department: 08/28/2022 RX INSTRUCTIONS: Patient aware RX will be sent to pharmacy. No need to notify patient. Patient phones requesting refills as follows: Requested Prescriptions No prescriptions requested or ordered in this encounter Please review and advise. Shanell Zuniga documented in this encounter [facility] 09-11-2022 Miscellaneous Notes [facility] calling for refills DEBBY: 08/28/22 NOV: 03/12/23 Last Refill: [facility] 10/09/21 #30 11 refills Vit D3 10/09/21 #30 11 refills Potassium chl: 03/27/22 #30 5 refills Shanell Estes LPN documented in this encounter [facility] 08-30-2022 Miscellaneous Notes Patient has been identified by name and date of : Yes Pharmacy phones for refill(s): Requested Prescriptions Pending Prescriptions Disp Refills blood sugar diagnostic (BLOOD GLUCOSE TEST) test strip 100 Strip 11 Sig: testing twice daily Insulin yes Use as instructed DXE11.21 Date of last office visit in primary care: 08/28/2022, has appt 03/12/2023 Last 2 Encounter Wt Readings: Date: Wt: 08/28/2022 83 kg (183 lb) 08/08/2022 82.8 kg (182 lb 9.6 oz) Previous labs/tests for medication: Diabetes: Hemoglobin A1C (%) Date Value 08/21/2022 6.9 11/23/2020 6.7 07/26/2020 7.8 Please advise. Thank you. Maye Ferrer LPN documented in this encounter [facility] 08-28-2022 Instructions Radha Batista APRN.PAVITHRA - 08/28/2022 2:39 PM EST Continue same medications. Try holding milk products for a week and see if that helps. Try the eye gel at night. Start the metronidazole cream. You can try the tylenol/ibuprofen as needed for back pain. Also can try some heat and massage. Labs and recheck in 6 months. documented in this encounter [facility] 08-28-2022 History of Present illness Narrative This is a 56 year old female who presents today with: Patient presents with: Recheck: 6 month follow up HISTORY OF PRESENT ILLNESS: Brittnee Le is a 56 year old female. Patient presents with: Recheck: 6 month follow up Pt presents today for 6 months follow. Presents w/ caregiver. Refers some gassiness/flatulence. Sometimes with small stool incontinence. Denies loose stool/diarrhea. Drinks a glass of milk daily. Several salads per week. No abdominal pain. No bloating. Some back pain. Refers more in the upper back - indicates in the flank area. Doesn't take anything for symptoms currently. Does have ibuprofen/tylenol available, but doesn't voice to caregivers that she desires it. Refers it will bother her for a couple of days in a row. DM: Reports overall feeling well. Medication side effects: No. Home sugar checks: twice daily. Hypoglycemic spells: No. Watching diet: Yes. Unexpected weight loss: Yes. Polyuria, polydipsia: gets thirsty. Vision Changes: vision is a little blurry when trying to read. Foot lesions or numbness or pain: No. Sleep apnea Wearing cpap nightly. It helps feel more rested during the day. Mood Has been good. Follows w/ Dr. Coronel. HYPERLIPIDEMIA: Patient is taking medications: No. Patient is watching diet: Yes. Patient denies myalgias: No. Patient denies gi upset: No Rosacea Facial flushing. Interested in treatment. PAST MEDICAL HISTORY: PAST MEDICAL HISTORY Diagnosis Date Bilateral pneumonia 07/23/2018 Admit [facility]: pneumococcal suspected, neg culture. 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, pt was on metformin for a while but taken off - pt never told if she had DM or not Major depressive disorder, recurrent episode, unspecified Nonspecific elevation of levels of transaminase or lactic acid dehydrogenase (LDH) LIDA (obstructive sleep apnea) Pneumonia Schizophreniform disorder, chronic condition (HCC) Simple endometrial hyperplasia without atypia mirena IUD 01/2011 PAST SURGICAL HISTORY Procedure Laterality Date CHOLECYSTECTOMY 1998 open COLONOSCOPY W/BIOPSY SINGLE/MULTIPLE 12/19/2016 Normal colonoscopy-10 year follow-up PAST SURGICAL HISTORY OF 1982 corrective jaw surgery ALLERGIES Patient has no known allergies. MEDICATIONS Current Outpatient Medications Medication Sig metoprolol succinate ER (TOPROL XL) 25 mg 24 hr tablet TAKE 1 TABLET BY MOUTH EVERY EVENING empagliflozin (JARDIANCE) 10 mg tablet Take 1 tablet by mouth daily with breakfast. omeprazole (PRILOSEC) 20 mg capsule Take 1 capsule by mouth daily before breakfast. 1/2 hr before meal. aspirin, enteric coated (ASPIRIN, ENTERIC COATED) 325 mg EC tablet Take 1 tablet by mouth once daily. Take with food. insulin glargine (LANTUS SOLOSTAR U-100 INSULIN) 100 unit/mL (3 mL) Give 48 units subq daily at 4 PM or as directed INVEGA SUSTENNA 156 mg/mL syrg injection metFORMIN ER (GLUCOPHAGE XR) 500 mg 24 hr tablet Take 2 tablets by mouth twice daily before meals. polyethylene glycol 3350 (MIRALAX) 17 gram packet Take 1 Packet by mouth once daily. Dissolve dose in 4 - 8 ounces of liquid and take as directed. atorvastatin (LIPITOR) 10 mg tablet Take 1 tablet by mouth daily at bedtime. For cholesterol. potassium chloride ER (K-DUR, KLOR-CON) 20 mEq tablet Take 1 tablet by mouth once daily. ibuprofen (MOTRIN) 200 mg tablet Take 1 tablet by mouth every 8 hours as needed for pain. clonazePAM (KLONOPIN) 0.5 mg tablet Take 0.5 mg by mouth three times daily as needed. furosemide (LASIX) 20 mg tablet Take 1 tablet by mouth once daily. omega-3 fatty acids (FISH OIL CONCENTRATE) 1,000 mg cap Take 1 capsule by mouth once daily. Cholecalciferol, Vitamin D3, 25 mcg (1,000 unit) cap Take 1 capsule by mouth once daily. acetaminophen (TYLENOL EXTRA STRENGTH) 500 mg tablet Take 1-2 tablets by mouth every 8 hours as needed for pain. cloZAPine (CLOZARIL) 100 mg tablet Take by mouth. Takes 25mg in the morning and 500mg at bedtime Lancing Device with Lancets ([employer] DELICA PLUS LANC DEV) Check blood sugars twice a day. Dx: E11.21 pramipexole (MIRAPEX) 0.5 mg tablet Take 0.5 tablets by mouth daily at bedtime. ferrous sulfate 325 mg (65 mg iron) tablet Take 1 tablet by mouth twice daily with meals. glipiZIDE (GLUCOTROL) 5 mg tablet Take 1 tablet by mouth twice daily. pravastatin (PRAVACHOL) 20 mg tablet Take 1 tablet by mouth once daily. HOLD 06/29/21 for 4 weeks due to leg aches and cramps (Patient not taking: Reported on 06/03/2022) lubiprostone (AMITIZA) 24 mcg capsule Take 1 capsule by mouth twice daily with meals. (Patient not taking: No sig reported) Ferrous Gluconate (FERGON) 324 mg (38 mg iron) tablet Take 1 tablet by mouth twice daily with meals. polyethylene glycol 3350 (MIRALAX) 17 gram/dose powder Take 17 .5 tsps as needed for constipation. magnesium hydroxide (MILK OF MAGNESIA) 400 mg/5 mL suspension TAKE 15ML BY MOUTH DAILY NEEDED FOR CONSTIPATION (FOR NO BOWEL MOVEMENT AFTER 3 insulin needles, DISPOSABLE, (PEN NEEDLE) 31 gauge x 5/16 Use one needle per dose. Once per day. Lancets lancets Test blood sugar(s) 2 times daily. Dx: Other DM Code E11.21 Insulin: Yes blood sugar diagnostic (BLOOD GLUCOSE TEST) test strip testing twice daily Insulin yes Use as instructed DXE11.21 guaiFENesin (MUCINEX) 600 mg 12 hr tablet Take 2 tablets by mouth twice daily. METOPROLOL SUCCINATE ORAL Take 12.5 mg by mouth twice daily. (Patient not taking: Reported on 12/03/2021 ) Blood Pressure Monitor 1 Each twice daily. risperiDONE orally disintegrating (RISPERDAL M) 1 mg disintegrating tablet Take 2 mg by mouth daily at bedtime. albuterol HFA (PROAIR HFA) 90 mcg/actuation inhaler Inhale 2 Puffs as instructed every 4 hours as needed (FOR COUGH OR WHEEZE). umeclidinium (INCRUSE ELLIPTA) 62.5 mcg/actuation inhaler Inhale 1 Puff as instructed once daily. Inhale one puff once daily. DO NOT CLICK OPEN UNTIL READY FOR DOSE fluticasone-vilanterol (BREO ELLIPTA) 100-25 mcg/dose inhaler Inhale 1 Inhalation as instructed once daily. Per Dr. Ramirez Comp Stocking,Knee,Regular,Med misc Patient to be measured for correct size. 20-30 mmHg Dx: I50.31 Insulin Syringe-Needle U-100 (BD INSULIN SYRINGE) 1 mL 28 gauge x 1/2 syrg Use as directed daily COMPOUNDED PRESCRIPTION BIPAP of 09/[address] Ramirez desvenlafaxine ER (PRISTIQ) 50 mg 24 hr tablet Take 50 mg by mouth once daily. (Patient not taking: Reported on 12/03/2021 ) Lancets lancets test BS twice daily 2 days a week- dx 250.00 - non-insulin blood sugar diagnostic (FREESTYLE LITE STRIPS) test strip test BS twice daily - dx - 250.00 -insulin Yes Blood-Glucose Meter (FREESTYLE LITE METER) monitoring kit Used once daily to check blood sugar. 250.00 risperiDONE (RISPERDAL CONSTA) 50 mg/2 mL injection Inject 2 mL intramuscularly every 2 weeks. (Patient not taking: Reported on 07/05/2022) No current facility-administered medications for this visit. FAMILY HISTORY Problem Relation Age of Onset Psychiatry Mother depression Psychiatry Sister deperssion other (lung cancer) Paternal Grandfather Social History Tobacco Use Smoking status: Former Packs/day: 2.00 Years: 20.00 Pack years: 40.00 Types: Cigarettes Quit date: 01/11/2014 Years since quittin.6 Smokeless tobacco: Never Vaping Use Vaping Use: Never used Substance Use Topics Alcohol use: No Drug use: No Comment: jeremy- Teen yrs, but not now EXAM: BP 124/72 Pulse 98 Resp 18 Wt 83 kg (183 lb) LMP 09/12/2017 SpO2 96% BMI 34.58 kg/m PHYSICAL EXAM: General Appearance: Well appearing, alert, in no acute distress, well-hydrated, well nourished.. Skin: Skin color, texture, turgor normal, no suspicious rashes or lesions. Head: Normocephalic, no masses, lesions, tenderness or abnormalities. Eyes: Anicteric sclera. Pupils are equally round and reactive to light. Extraocular movements are intact. . Neck: Supple, no adenopathy; thyroid symmetric, normal size, no bruits. Lungs: Lungs clear to auscultation. No wheezing, rhonchi, rales.. Heart: RRR without murmur, gallop, or rubs. No ectopy. Abdomen: Abdomen soft, non-tender. Bowel sounds normal. No masses, organomegaly. Back: indicates discomfort in bilateral thoracic back. No pain w/ palpation. No cva tenderness. Extremities: No deformities, edema, skin discoloration, clubbing or cyanosis. Good capillary refill. Neurologic: Gait normal. ASSESSMENT/PLAN: 1. Type 2 diabetes mellitus with diabetic nephropathy, with long-term current use of insulin (HCC) - ICD9: 250.40, 583.81, V58.67, ICD10: E11.21, Z79.4 (primary diagnosis) Controlled. - Continue current medications 2. Schizophreniform disorder, chronic condition (HCC) - ICD9: 295.42, ICD10: F20.81 Follows with psychiatry. Mood has been good/stable. 3. Hyperlipidemia, unspecified hyperlipidemia type - ICD9: 272.4, ICD10: E78.5 - good control - Continue current medication. 4. LIDA (obstructive sleep apnea) - ICD9: 327.23, ICD10: G47.33 Continues daily cpap use. 5. Rosacea - ICD9: 695.3, ICD10: L71.9 Start metrogel. 6. Upper back pain - ICD9: 724.5, ICD10: M54.9 - Ice for localized tenderness - Warm moist heat for 20 min three times a day - NSAIDS- see orders - Patient given instructions use of medications as ordered and intermittent use of heat 7. Gassiness - ICD9: 787.3, ICD10: R14.0 Initially will try holding milk products for a week and see if that helps the increased gassiness. If no improvement, try limiting gas-producing foods. Can also consider trialing gasx to help limit gassiness. Discussed treatment plan and patient voices understanding. Patient's questions answered appropriately. Medications and potential side effects were discussed and patient voices understanding. Return to the office as scheduled or as needed for worsening/no improvement. Radha Batista APRN.PAVITHRA documented in this encounter [facility] 08-19-2022 Miscellaneous Notes Patient has been identified by name and date of : Yes Pharmacy phones for refill(s): Requested Prescriptions Pending Prescriptions Disp Refills Lancing Device with Lancets ([employer] DELICA PLUS LANC DEV) 100 Each 5 Sig: Check blood sugars twice a day. Dx: E11.21 Date of last office visit in primary care: 03/27/22 next apt 08/28/22 Last 2 Encounter Wt Readings: Date: Wt: 08/08/2022 82.8 kg (182 lb 9.6 oz) 07/05/2022 83.2 kg (183 lb 6.4 oz) Previous labs/tests for medication: Diabetes: Hemoglobin A1C (%) Date Value 11/23/2020 6.7 07/26/2020 7.8 Thank you. Brandy Mark LPN documented in this encounter [facility] 08-15-2022 Miscellaneous Notes Patient has been identified by name and date of : Yes Last office visit in this department: 03/27/2022 RX INSTRUCTIONS: Patient aware RX will be sent to pharmacy. No need to notify patient. Patient phones requesting refills as follows: Requested Prescriptions Pending Prescriptions Disp Refills empagliflozin (JARDIANCE) 10 mg tablet 30 tablet 3 Sig: Take 1 tablet by mouth daily with breakfast. omeprazole (PRILOSEC) 20 mg capsule 30 capsule 5 Sig: Take 1 capsule by mouth daily before breakfast. 1/2 hr before meal. aspirin, enteric coated (ASPIRIN, ENTERIC COATED) 325 mg EC tablet 30 tablet 11 Sig: Take 1 tablet by mouth once daily. Take with food. Please review and advise. Keila Ca Pss documented in this encounter [facility] 08-13-2022 Miscellaneous Notes Patient's request for medication is as follows: Requested Prescriptions Pending Prescriptions Disp Refills metoprolol succinate ER (TOPROL XL) 25 mg 24 hr tablet [Pharmacy Med Name: Metoprolol Succinate ER 25MG TB24] 90 tablet 3 Sig: TAKE 1 TABLET BY MOUTH EVERY EVENING Last seen 06/03/2022 in [place]. Follow up scheduled for 06/02/2023. Prescription(s) as above. Please process accordingly. Zaira Humphreys LPN documented in this encounter [facility] 08-08-2022 Instructions Zaira García APRN.MANUFACTURING SPECIALIST - 08/08/2022 1:55 PM EDT [facility] [place] [id number] [place] [address] Emergency Department Diagnosis: Assessment CELLULITIS: Your exam shows you have an infection of the skin called cellulitis. This infection usually develops after an injury, cut, bite, or sting, but may occur without any known cause. Usually there is a localized area of redness, swelling, and pain which gets constantly bigger unless treatment is started. If cellulitis is severe or does not respond to initial treatment, hospital care with antibiotic injections may be needed. Treatment of cellulitis includes antibiotics along with resting and elevating the affected area until the infection improves. You should apply moist, warm compresses to the area for 30 minutes 4 times daily also. Please see your doctor if the pain and swelling from your infection are not better after two days of treatment. Call your doctor or go to the emergency department right away if you develop fever, chills, or other serious problems. You may require a tetanus booster if you are not current with your inmunizations.CONJUNCTIVITIS ([facility]) BASIC INFORMATION DESCRIPTION: An inflammation of the eyelids' underside and white part of the eye. It is more common in children. FREQUENT SIGNS AND SYMPTOMS: The following symptoms may affect one or both eyes: -Clear, green or yellow discharge from the eye. -After sleeping, crusts on lashes that cause eyelids to stick together. -Eye pain. -Swollen eyelids. -Sensitivity to bright light. -Redness and gritty feeling in the eye. -Intense itching (allergic conjunctivitis only). PREVENTIVE MEASURES: -Wash hands frequently with soap and warm water. -Avoid exposure to eye irritants. Newborns in hospital deliveries are routinely given antibiotic eye drops. -Do not share eyeliners, and discard mascara after 4-6 months. TREATMENT: GENERAL MEASURES: -Treatment of conjunctivitis varies with the cause. -Wash hands often with antiseptic soap, and use paper towels to dry. Don't touch eyes. Gently wipe the discharge from the eye using disposable tissues. -Infections are frequently spread by contaminated fingers, towels, handkerchiefs or wash clothes that have touched the infected eye. -Use warm-water soaks or cold water to reduce discomfort. -Don't use eye makeup. -If the infection does not improve in 2 or 3 days, it may be caused by an insensitive bacteria, virus or allergy. At this point, an top lift scourer may need to culture the cause or the conjunctivitis. -Do not wear contact lenses until inflammation is cleared. ACTIVITY: Resume your normal activities as soon as symptoms improve. Contact physician if: -The infection does not improve in 48 hours, despite treatment. -Fever occurs. -Pain increase. -Vision is affected. REPORT: -The infection does not imporve in 48 hours, despite treatment. -Fever occurs -Pain increase -Vision is affected. documented in this encounter [facility] 08-08-2022 History of Present illness Narrative This note was created using NoteWriter. Subjective Brittnee Le is a 56 year old female. 56 year old female with PMH hyperlipidemia, CHF, SVT, Type 2 DM, and schizophrenia, obesity and COPD presents for complaints of eye and facial swelling. Acute onset yesterday +left eye redness +matting of eyelids +drainage Denies painful vision. Denies loss of vision Denies trauma or injury. Denies feelings of FB. Denies accompanying URI sx. Utilizes glasses. Denies corrective lens. Has been seen by eye doctor in the last 3 to 4 months. Patient resides in a long-term, ROS and HPI limited related to cognitive. Information supplemented by animal feeder of long-term. The history is provided by the patient and a caregiver. The history is limited by a developmental delay. No language path was used. Eye Problem This is a new problem. The current episode started yesterday. The problem occurs constantly. The problem has been gradually worsening. Pertinent negatives include no abdominal pain, anorexia, arthralgias, change in bowel habit, chest pain, chills, congestion, coughing, diaphoresis, fatigue, fever, headaches, joint swelling, myalgias, nausea, neck pain, numbness, rash, sore throat, swollen glands, urinary symptoms, vertigo, visual change, vomiting or weakness. Nothing aggravates the symptoms. She has tried nothing for the symptoms. The treatment provided no relief. PAST MEDICAL HISTORY Diagnosis Date Bilateral pneumonia 07/23/2018 Admit [facility]: pneumococcal suspected, neg culture. 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 [facility], pt was on metformin for a while but taken off - pt never told if she had DM or not Major depressive disorder, recurrent episode, unspecified Nonspecific elevation of levels of transaminase or lactic acid dehydrogenase (LDH) LIDA (obstructive sleep apnea) Pneumonia Schizophreniform disorder, chronic condition (HCC) Simple endometrial hyperplasia without atypia mirena IUD 01/2011 PAST SURGICAL HISTORY Procedure Laterality Date CHOLECYSTECTOMY 1998 open COLONOSCOPY W/BIOPSY SINGLE/MULTIPLE 12/19/2016 Normal colonoscopy-10 year follow-up PAST SURGICAL HISTORY OF 1982 corrective jaw surgery ALLERGIES Patient has no known allergies. MEDICATIONS cephALEXin (KEFLEX) 500 mg capsule Take 1 capsule by mouth four times daily for 5 days. trimethoprim-polymyxin (POLYTRIM) 10,000 unit- 1 mg/mL ophthalmic solution Use 1 Drop in the left eye every 4 hours for 7 days. INVEGA SUSTENNA 156 mg/mL syrg injection pramipexole (MIRAPEX) 0.5 mg tablet Take 0.5 tablets by mouth daily at bedtime. metFORMIN ER (GLUCOPHAGE XR) 500 mg 24 hr tablet Take 2 tablets by mouth twice daily before meals. ferrous sulfate 325 mg (65 mg iron) tablet Take 1 tablet by mouth twice daily with meals. polyethylene glycol 3350 (MIRALAX) 17 gram packet Take 1 Packet by mouth once daily. Dissolve dose in 4 - 8 ounces of liquid and take as directed. atorvastatin (LIPITOR) 10 mg tablet Take 1 tablet by mouth daily at bedtime. For cholesterol. empagliflozin (JARDIANCE) 10 mg tablet Take 1 tablet by mouth daily with breakfast. glipiZIDE (GLUCOTROL) 5 mg tablet Take 1 tablet by mouth twice daily. potassium chloride ER (K-DUR, KLOR-CON) 20 mEq tablet Take 1 tablet by mouth once daily. omeprazole (PRILOSEC) 20 mg capsule Take 1 capsule by mouth daily before breakfast. 1/2 hr before meal. pravastatin (PRAVACHOL) 20 mg tablet Take 1 tablet by mouth once daily. HOLD 06/29/21 for 4 weeks due to leg aches and cramps (Patient not taking: Reported on 06/03/2022) ibuprofen (MOTRIN) 200 mg tablet Take 1 tablet by mouth every 8 hours as needed for pain. lubiprostone (AMITIZA) 24 mcg capsule Take 1 capsule by mouth twice daily with meals. (Patient not taking: No sig reported) Ferrous Gluconate (FERGON) 324 mg (38 mg iron) tablet Take 1 tablet by mouth twice daily with meals. clonazePAM (KLONOPIN) 0.5 mg tablet Take 0.5 mg by mouth three times daily as needed. polyethylene glycol 3350 (MIRALAX) 17 gram/dose powder Take 17 .5 tsps as needed for constipation. furosemide (LASIX) 20 mg tablet Take 1 tablet by mouth once daily. omega-3 fatty acids (FISH OIL CONCENTRATE) 1,000 mg cap Take 1 capsule by mouth once daily. Cholecalciferol, Vitamin D3, 25 mcg (1,000 unit) cap Take 1 capsule by mouth once daily. metoprolol succinate ER (TOPROL XL) 25 mg 24 hr tablet TAKE 1 TABLET BY MOUTH EVERY EVENING acetaminophen (TYLENOL EXTRA STRENGTH) 500 mg tablet Take 1-2 tablets by mouth every 8 hours as needed for pain. magnesium hydroxide (MILK OF MAGNESIA) 400 mg/5 mL suspension TAKE 15ML BY MOUTH DAILY NEEDED FOR CONSTIPATION (FOR NO BOWEL MOVEMENT AFTER 3 Lancing Device with Lancets (Best Before [employer] DELICA PLUS LANC DEV) Check blood sugars twice a day. Dx: E11.21 aspirin, enteric coated (ASPIRIN, ENTERIC COATED) 325 mg EC tablet Take 1 tablet by mouth once daily. Take with food. insulin needles, DISPOSABLE, (PEN NEEDLE) 31 gauge x 5/16 Use one needle per dose. Once per day. insulin glargine (LANTUS SOLOSTAR U-100 INSULIN) 100 unit/mL (3 mL) Give 48 units subq daily at 4 PM or as directed Lancets lancets Test blood sugar(s) 2 times daily. Dx: Other DM Code E11.21 Insulin: Yes blood sugar diagnostic (BLOOD GLUCOSE TEST) test strip testing twice daily Insulin yes Use as instructed DXE11.21 guaiFENesin (MUCINEX) 600 mg 12 hr tablet Take 2 tablets by mouth twice daily. METOPROLOL SUCCINATE ORAL Take 12.5 mg by mouth twice daily. (Patient not taking: Reported on 12/03/2021 ) Blood Pressure Monitor 1 Each twice daily. risperiDONE orally disintegrating (RISPERDAL M) 1 mg disintegrating tablet Take 2 mg by mouth daily at bedtime. cloZAPine (CLOZARIL) 100 mg tablet Take by mouth. Takes 25mg in the morning and 500mg at bedtime albuterol HFA (PROAIR HFA) 90 mcg/actuation inhaler Inhale 2 Puffs as instructed every 4 hours as needed (FOR COUGH OR WHEEZE). umeclidinium (INCRUSE ELLIPTA) 62.5 mcg/actuation inhaler Inhale 1 Puff as instructed once daily. Inhale one puff once daily. DO NOT CLICK OPEN UNTIL READY FOR DOSE fluticasone-vilanterol (BREO ELLIPTA) 100-25 mcg/dose inhaler Inhale 1 Inhalation as instructed once daily. Per Dr. Ramirez Comp Stocking,Knee,Regular,Med [facility] Patient to be measured for correct size. 20-30 mmHg Dx: I50.31 Insulin Syringe-Needle U-100 (BD INSULIN SYRINGE) 1 mL 28 gauge x 1/2 syrg Use as directed daily COMPOUNDED PRESCRIPTION BIPAP of 8 on 3L oxygen per Dr[address] Ramirez desvenlafaxine ER (PRISTIQ) 50 mg 24 hr tablet Take 50 mg by mouth once daily. (Patient not taking: Reported on 12/03/2021 ) Lancets lancets test BS twice daily 2 days a week- dx 250.00 - non-insulin blood sugar diagnostic (FREESTYLE LITE STRIPS) test strip test BS twice daily - dx - 250.00 -insulin Yes Blood-Glucose Meter (FREESTYLE LITE METER) monitoring kit Used once daily to check blood sugar. 250.00 risperiDONE (RISPERDAL CONSTA) 50 mg/2 mL injection Inject 2 mL intramuscularly every 2 weeks. (Patient not taking: Reported on 07/05/2022) FAMILY HISTORY Problem Relation Age of Onset Psychiatry Mother depression Psychiatry Sister deperssion other (lung cancer) Paternal Grandfather Social History Tobacco Use Smoking status: Former Packs/day: 2.00 Years: 20.00 Pack years: 40.00 Types: Cigarettes Quit date: 01/11/2014 Years since quittin.5 Smokeless tobacco: Never Vaping Use Vaping Use: Never used Substance Use Topics Alcohol use: No Drug use: No Comment: marijunan- Teen yrs, but not now Review of Systems Constitutional: Negative for chills, diaphoresis, fatigue and fever. HENT: Negative for congestion, sinus pressure, sinus pain and sore throat. Eyes: Positive for discharge, redness and itching. Negative for photophobia, pain and visual disturbance. Respiratory: Negative for apnea, cough, choking and chest tightness. Cardiovascular: Negative for chest pain. Gastrointestinal: Negative for abdominal pain, anorexia, change in bowel habit, nausea and vomiting. Musculoskeletal: Negative for arthralgias, joint swelling, myalgias and neck pain. Skin: Negative for color change, pallor and rash. Allergic/Immunologic: Positive for immunocompromised state. Negative for environmental allergies and food allergies. Neurological: Negative for dizziness, vertigo, facial asymmetry, weakness, numbness and headaches. Hematological: Negative for adenopathy. Does not bruise/bleed easily. Psychiatric/Behavioral: Negative for agitation and behavioral problems. Objective BP 130/76 Pulse 108 Temp 36.3 C (97.4 F) Resp 16 Wt 82.8 kg (182 lb 9.6 oz) LMP 09/12/2017 SpO2 97% BMI 34.50 kg/m Physical Exam Vitals and nursing note reviewed. Constitutional: General: She is not in acute distress. Appearance: Normal appearance. She is normal weight. She is not ill-appearing, toxic-appearing or diaphoretic. HENT: Head: Normocephalic and atraumatic. Right Ear: Ear canal and external ear normal. Left Ear: Ear canal and external ear normal. Nose: Nose normal. No congestion or rhinorrhea. Mouth/Throat: Mouth: Mucous membranes are moist. Pharynx: No oropharyngeal exudate or posterior oropharyngeal erythema. Eyes: General: Vision grossly intact. Right eye: No discharge. Left eye: No discharge. Extraocular Movements: Extraocular movements intact. Conjunctiva/sclera: Conjunctivae normal. Pupils: Pupils are equal, round, and reactive to light. Comments: OS injected Marginal eyelid debris noted. +purulent drainage noted Slight periorbital erythema No abscess. No swelling. No crepitus EOM intact Cardiovascular: Rate and Rhythm: Normal rate and regular rhythm. Pulses: Normal pulses. Heart sounds: Normal heart sounds. No murmur heard. No friction rub. Pulmonary: Effort: Pulmonary effort is normal. No respiratory distress. Breath sounds: Normal breath sounds. No stridor. No wheezing, rhonchi or rales. Chest: Chest wall: No tenderness. Abdominal: General: Abdomen is flat. There is no distension. Palpations: Abdomen is soft. There is no mass. Tenderness: There is no abdominal tenderness. There is no right CVA tenderness, left CVA tenderness, guarding or rebound. Hernia: No hernia is present. Musculoskeletal: General: No swelling, tenderness, deformity or signs of injury. Normal range of motion. Cervical back: Normal range of motion and neck supple. No rigidity. Right lower leg: No edema. Left lower leg: No edema. Lymphadenopathy: Cervical: No cervical adenopathy. Skin: General: Skin is warm and dry. Coloration: Skin is not jaundiced or pale. Findings: No bruising, erythema, lesion or rash. Neurological: General: No focal deficit present. Mental Status: She is alert and oriented to person, place, and time. Cranial Nerves: No cranial nerve deficit. Sensory: No sensory deficit. Motor: No weakness. Coordination: Coordination normal. Gait: Gait normal. Psychiatric: Mood and Affect: Mood normal. Behavior: Behavior normal. Thought Content: Thought content normal. Judgment: Judgment normal. Assessment and Plan ASSESSMENT/PLAN: 1. Conjunctivitis of left eye, unspecified conjunctivitis type - ICD9: 372.30, ICD10: H10.9 (primary diagnosis) - see medication orders - course and contagiousness issues discussed, including hand washing. She is to follow up with her eye doctor - Instructed to call if high fever, development of periorbital redness or swelling, eye pain, visual changes, concerns or if symptoms persist. 2. Facial infection - ICD9: 136.8, ICD10: L08.9 - Begin treatment with Cephalaxin (Keflex) - Follow up for recheck in two days Zaira García APRN.CNP documented in this encounter [facility] 07-05-2022 Instructions Zaira García APRN.CNP - 07/05/2022 1:15 PM EDT Keep the area free of further injury Topical antibiotic ointment Follow up with podiatry to have toenails clipped. documented in this encounter [facility] 07-05-2022 History of Present illness Narrative Images from the original note were not included. This note was created using [email or web address]. Subjective Brittnee Le is a 56 year old female. 56 year old female with PMH hyperlipidemia, CHF, SVT, COPD, LIDA, DM, schizophrenia and obesity presents for toe nail concern Acute onset last night Endorses that she felt her nails were too long, and she went to pull at it. +bleeding at the time, Which has since subsided. Right 4th toe Presents today with an aid from her long-term concerns for it being infected Denies pain. Denies numbness or tingling Sees Dr. Villavicencio for podiatry at [facility] tried to call today, but they are closed. The history is provided by the patient. No language path was used. Pain (foot) Pain location: right 4th toe. This is a new problem. The current episode started yesterday. There has been a history of trauma. The problem occurs constantly. The problem has been gradually improving. The pain is at a severity of 0/10. The patient is experiencing no pain. Pertinent negatives include no fever, inability to bear weight, itching, joint locking, joint swelling, limited range of motion, numbness, stiffness or tingling. The symptoms are aggravated by activity. She has tried nothing for the symptoms. The treatment provided no relief. Family history does not include gout or rheumatoid arthritis. There is no history of diabetes, gout, osteoarthritis or rheumatoid arthritis. PAST MEDICAL HISTORY Diagnosis Date Bilateral pneumonia 07/23/2018 Admit [facility]: pneumococcal suspected, neg culture. 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 [facility], pt was on metformin for a while but taken off - pt never told if she had DM or not Major depressive disorder, recurrent episode, unspecified Nonspecific elevation of levels of transaminase or lactic acid dehydrogenase (LDH) LIDA (obstructive sleep apnea) Pneumonia Schizophreniform disorder, chronic condition (HCC) Simple endometrial hyperplasia without atypia mirena IUD 01/2011 PAST SURGICAL HISTORY Procedure Laterality Date CHOLECYSTECTOMY 1998 open COLONOSCOPY W/BIOPSY SINGLE/MULTIPLE 12/19/2016 Normal colonoscopy-10 year follow-up PAST SURGICAL HISTORY OF 1982 corrective jaw surgery ALLERGIES Patient has no known allergies. MEDICATIONS INVEGA SUSTENNA 156 mg/mL syrg injection metFORMIN ER (GLUCOPHAGE XR) 500 mg 24 hr tablet Take 2 tablets by mouth twice daily before meals. atorvastatin (LIPITOR) 10 mg tablet Take 1 tablet by mouth daily at bedtime. For cholesterol. glipiZIDE (GLUCOTROL) 5 mg tablet Take 1 tablet by mouth twice daily. omeprazole (PRILOSEC) 20 mg capsule Take 1 capsule by mouth daily before breakfast. 1/2 hr before meal. Ferrous Gluconate (FERGON) 324 mg (38 mg iron) tablet Take 1 tablet by mouth twice daily with meals. clonazePAM (KLONOPIN) 0.5 mg tablet Take 0.5 mg by mouth three times daily as needed. polyethylene glycol 3350 (MIRALAX) 17 gram/dose powder Take 17 .5 tsps as needed for constipation. furosemide (LASIX) 20 mg tablet Take 1 tablet by mouth once daily. metoprolol succinate ER (TOPROL XL) 25 mg 24 hr tablet TAKE 1 TABLET BY MOUTH EVERY EVENING acetaminophen (TYLENOL EXTRA STRENGTH) 500 mg tablet Take 1-2 tablets by mouth every 8 hours as needed for pain. magnesium hydroxide (MILK OF MAGNESIA) 400 mg/5 mL suspension TAKE 15ML BY MOUTH DAILY NEEDED FOR CONSTIPATION (FOR NO BOWEL MOVEMENT AFTER 3 aspirin, enteric coated (ASPIRIN, ENTERIC COATED) 325 mg EC tablet Take 1 tablet by mouth once daily. Take with food. blood sugar diagnostic (BLOOD GLUCOSE TEST) test strip testing twice daily Insulin yes Use as instructed DXE11.21 Blood Pressure Monitor 1 Each twice daily. cloZAPine (CLOZARIL) 100 mg tablet Take by mouth. Takes 25mg in the morning and 500mg at bedtime Comp Stocking,Knee,Regular,Med misc Patient to be measured for correct size. 20-30 mmHg Dx: I50.31 COMPOUNDED PRESCRIPTION BIPAP of 8 on 3L oxygen per Dr[address] Ramirez blood sugar diagnostic (FREESTYLE LITE STRIPS) test strip test BS twice daily - dx - 250.00 -insulin Yes Blood-Glucose Meter (FREESTYLE LITE METER) monitoring kit Used once daily to check blood sugar. 250.00 pramipexole (MIRAPEX) 0.5 mg tablet Take 0.5 tablets by mouth daily at bedtime. ferrous sulfate 325 mg (65 mg iron) tablet Take 1 tablet by mouth twice daily with meals. polyethylene glycol 3350 (MIRALAX) 17 gram packet Take 1 Packet by mouth once daily. Dissolve dose in 4 - 8 ounces of liquid and take as directed. empagliflozin (JARDIANCE) 10 mg tablet Take 1 tablet by mouth daily with breakfast. potassium chloride ER (K-DUR, KLOR-CON) 20 mEq tablet Take 1 tablet by mouth once daily. pravastatin (PRAVACHOL) 20 mg tablet Take 1 tablet by mouth once daily. HOLD 06/29/21 for 4 weeks due to leg aches and cramps (Patient not taking: Reported on 06/03/2022) ibuprofen (MOTRIN) 200 mg tablet Take 1 tablet by mouth every 8 hours as needed for pain. lubiprostone (AMITIZA) 24 mcg capsule Take 1 capsule by mouth twice daily with meals. (Patient not taking: No sig reported) omega-3 fatty acids (FISH OIL CONCENTRATE) 1,000 mg cap Take 1 capsule by mouth once daily. Cholecalciferol, Vitamin D3, 25 mcg (1,000 unit) cap Take 1 capsule by mouth once daily. Lancing Device with Lancets ([employer] DELICA PLUS LANC DEV) Check blood sugars twice a day. Dx: E11.21 insulin needles, DISPOSABLE, (PEN NEEDLE) 31 gauge x 5/16 Use one needle per dose. Once per day. insulin glargine (LANTUS SOLOSTAR U-100 INSULIN) 100 unit/mL (3 mL) Give 48 units subq daily at 4 PM or as directed Lancets lancets Test blood sugar(s) 2 times daily. Dx: Other DM Code E11.21 Insulin: Yes guaiFENesin (MUCINEX) 600 mg 12 hr tablet Take 2 tablets by mouth twice daily. METOPROLOL SUCCINATE ORAL Take 12.5 mg by mouth twice daily. (Patient not taking: Reported on 12/03/2021 ) risperiDONE orally disintegrating (RISPERDAL M) 1 mg disintegrating tablet Take 2 mg by mouth daily at bedtime. albuterol HFA (PROAIR HFA) 90 mcg/actuation inhaler Inhale 2 Puffs as instructed every 4 hours as needed (FOR COUGH OR WHEEZE). umeclidinium (INCRUSE ELLIPTA) 62.5 mcg/actuation inhaler Inhale 1 Puff as instructed once daily. Inhale one puff once daily. DO NOT CLICK OPEN UNTIL READY FOR DOSE fluticasone-vilanterol (BREO ELLIPTA) 100-25 mcg/dose inhaler Inhale 1 Inhalation as instructed once daily. Per Dr. Ramirez Insulin Syringe-Needle U-100 (BD INSULIN SYRINGE) 1 mL 28 gauge x 1/2 syrg Use as directed daily desvenlafaxine ER (PRISTIQ) 50 mg 24 hr tablet Take 50 mg by mouth once daily. (Patient not taking: Reported on 12/03/2021 ) Lancets lancets test BS twice daily 2 days a week- dx 250.00 - non-insulin risperiDONE (RISPERDAL CONSTA) 50 mg/2 mL injection Inject 2 mL intramuscularly every 2 weeks. (Patient not taking: Reported on 07/05/2022) FAMILY HISTORY Problem Relation Age of Onset Psychiatry Mother depression Psychiatry Sister deperssion other (lung cancer) Paternal Grandfather Social History Tobacco Use Smoking status: Former Packs/day: 2.00 Years: 20.00 Pack years: 40.00 Types: Cigarettes Quit date: 01/11/2014 Years since quittin.4 Smokeless tobacco: Never Vaping Use Vaping Use: Never used Substance Use Topics Alcohol use: No Drug use: No Comment: marijunan- Teen yrs, but not now Review of Systems Constitutional: Negative for activity change, appetite change, chills and fever. HENT: Negative for congestion, dental problem and drooling. Eyes: Negative for pain, discharge, redness and itching. Respiratory: Negative for apnea, cough, choking and chest tightness. Cardiovascular: Negative for chest pain, palpitations and leg swelling. Gastrointestinal: Negative for abdominal pain, diarrhea, nausea and vomiting. Musculoskeletal: Negative for arthralgias, back pain, gait problem, gout and stiffness. Skin: Negative for color change, itching, pallor and rash. Allergic/Immunologic: Negative for environmental allergies, food allergies and immunocompromised state. Neurological: Negative for dizziness, tingling, facial asymmetry, light-headedness, numbness and headaches. Hematological: Negative for adenopathy. Does not bruise/bleed easily. Psychiatric/Behavioral: Negative for agitation and behavioral problems. Objective BP 122/74 Pulse 112 Temp 36.1 C (97 F) Resp 18 Wt 83.2 kg (183 lb 6.4 oz) LMP 09/12/2017 SpO2 97% BMI 34.65 kg/m Physical Exam Vitals and nursing note reviewed. Constitutional: General: She is not in acute distress. Appearance: Normal appearance. She is normal weight. She is not ill-appearing, toxic-appearing or diaphoretic. HENT: Head: Normocephalic and atraumatic. Right Ear: Ear canal and external ear normal. Left Ear: Ear canal and external ear normal. Nose: Nose normal. No congestion or rhinorrhea. Mouth/Throat: Mouth: Mucous membranes are moist. Pharynx: No oropharyngeal exudate or posterior oropharyngeal erythema. Eyes: General: Right eye: No discharge. Left eye: No discharge. Extraocular Movements: Extraocular movements intact. Conjunctiva/sclera: Conjunctivae normal. Pupils: Pupils are equal, round, and reactive to light. Cardiovascular: Rate and Rhythm: Normal rate and regular rhythm. Pulses: Normal pulses. Heart sounds: Normal heart sounds. No murmur heard. No friction rub. Pulmonary: Effort: Pulmonary effort is normal. No respiratory distress. Breath sounds: Normal breath sounds. No stridor. No wheezing, rhonchi or rales. Chest: Chest wall: No tenderness. Abdominal: General: Abdomen is flat. There is no distension. Palpations: Abdomen is soft. There is no mass. Tenderness: There is no abdominal tenderness. There is no right CVA tenderness, left CVA tenderness, guarding or rebound. Hernia: No hernia is present. Musculoskeletal: General: No swelling, tenderness, deformity or signs of injury. Normal range of motion. Cervical back: Normal range of motion and neck supple. No rigidity. Right lower leg: No edema. Left lower leg: No edema. Feet: Lymphadenopathy: Cervical: No cervical adenopathy. Skin: General: Skin is warm and dry. Capillary Refill: Capillary refill takes less than 2 seconds. Coloration: Skin is not jaundiced or pale. Findings: No bruising, erythema, lesion or rash. Neurological: General: No focal deficit present. Mental Status: She is alert and oriented to person, place, and time. Cranial Nerves: No cranial nerve deficit. Sensory: No sensory deficit. Motor: No weakness. Coordination: Coordination normal. Gait: Gait normal. Psychiatric: Mood and Affect: Mood normal. Behavior: Behavior normal. Thought Content: Thought content normal. Judgment: Judgment normal. Assessment and Plan ASSESSMENT/PLAN: 1. Injury of toenail of right foot, initial encounter - ICD9: 959.7, ICD10: S99.921A Isolated trauma related to patient attempting to pull off excessive nail All of the nails on the right foot are overgrown Patient and aid unsure of last time patient saw her podiatry. At this time no intervention Patient to protect area, Apply topical ATB twice a day Post op shoe provided here in clinic Staff made aware that patient needs to follow up with podiatry [facility] - CONSULT TO PODIATRY, if she cannot get into see her podiatry, she can reach out to [facility] and be seen by Dr. Cintron. Zaira García APRN.CNP documented in this encounter [facility] 06-20-2022 Miscellaneous Notes Patient has been identified by name and date of : Yes Pharmacy phones for refill(s): Requested Prescriptions Pending Prescriptions Disp Refills pramipexole (MIRAPEX) 0.5 mg tablet 30 tablet 5 Sig: Take 0.5 tablets by mouth daily at bedtime. Date of last office visit in primary care: 03/27/22 Future visit: 07/18/22 Last 2 Encounter Wt Readings: Date: Wt: 06/03/2022 82.6 kg (182 lb) 01/30/2022 85.6 kg (188 lb 12.8 oz) Previous labs/tests for medication: Blood Pressure: BUN (mg/dL) Date Value 07/19/2021 8 Sodium (mmol/L) Date Value 07/19/2021 133 Last 1 Encounter BP Readings: Date: BP: 06/03/2022 110/70 Liver Function: ALT (U/L) Date Value 07/19/2021 34 AST (U/L) Date Value 07/19/2021 19 Please advise. Thank you. Priya White RN documented in this encounter [facility] 05-08-2022 Miscellaneous Notes [facility] reports the hospital in [place] only prescribed a month supply of the pended medications. Reports when the hospital sent Rx's for the month supply, it cancelled out pcp's Rx's. Will need new Rx's. Note: miralax was changed to packets and instructions state daily. Ferrous gluconate was changed to Ferrous sulfate. [facility] asking to please send omar, so patient will have to take tomorrow. documented in this encounter [facility] 05-07-2022 Miscellaneous Notes [facility] notified. Frank Joya LPN Continue meds. Patient was released 04/16/2022 from [facility], Dr. Kessler called in RX Metformin 500mg, 2 tablets BID & Ferrous Sulfate 325mg, 1 tablet once daily. [facility]pharmacy is asking if Dr. Vance wants Patient to continue taking Metformin & Ferrous Sulfate. Please advise. Chiara Suárez LPN documented in this encounter [facility] 05-02-2022 Miscellaneous Notes Called pharmacy and had tech check profile. They do have refill on metformin and iron. Confirmed with her these were not new orders. [facility] pharmacy calling stating patient was in [facility] and has been starteed o nthe follow medications. Please call in the following prescriptions: Atorvastatin 10 mg one tablet at bedtime Iron 325 mg one tablet twice daily Metformin 500 mg two tablets twice daily Patient uses pharmacy on file. documented in this encounter [facility] 03-27-2022 Miscellaneous Notes Last office visit: appt today with Radha Batista F/u scheduled: 07/18/22 Татьяна Escobar Ma Patient has been identified by name and date of : Yes Pending Prescriptions Disp Refills GLIPIZIDE 5 MG TABLET 60 tablet 5 Sig: Take 1 tablet by mouth twice daily. MIGUELINA: No POTASSIUM CHLORIDE ER 20 MEQ TABLET,EXTENDED RELEASE(PART/CRYST) 30 tablet 5 Sig: Take 1 tablet by mouth once daily. MIGUELINA: No RX INSTRUCTIONS: Pharmacy initiated this request. No need to notify patient. Chica Todd documented in this encounter [facility] 03-27-2022 Instructions Radha Batista APRN.PAVITHRA - 03/27/2022 2:34 PM EDT 1. Apply the triamcinolone ointment twice daily to the irritated skin from the cpap straps. Leave open to air during the day. In the evening, use guaze between face and cpap straps until healed. 2. Notify provider if no better or any worsening. documented in this encounter [facility] 03-27-2022 History of Present illness Narrative This is a 56 year old female who presents today with: Patient presents with: Rash: facial rash where the cpap masks sits on face HISTORY OF PRESENT ILLNESS: Brittnee Le is a 56 year old female. Patient presents with: Rash: facial rash where the cpap masks sits on face Pt presents today with caregiver. She has a rash on her face from the cpap straps. Not painful. Currently not using anything on it. Refers that she follows with Dr. Ramirez for the sleep apnea. Is using a new mask and questions if related to this. Patient also has some rosacea. May be interested in topical treatment for this once facial irritation clears up. PAST MEDICAL HISTORY: PAST MEDICAL HISTORY Diagnosis Date Bilateral pneumonia 07/23/2018 Admit [facility]: pneumococcal suspected, neg culture. 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 [facility], pt was on metformin for a while but taken off - pt never told if she had DM or not Major depressive disorder, recurrent episode, unspecified Nonspecific elevation of levels of transaminase or lactic acid dehydrogenase (LDH) LIDA (obstructive sleep apnea) Pneumonia Schizophreniform disorder, chronic condition (HCC) Simple endometrial hyperplasia without atypia mirena IUD 01/2011 PAST SURGICAL HISTORY Procedure Laterality Date CHOLECYSTECTOMY 1998 open COLONOSCOPY W/BIOPSY SINGLE/MULTIPLE 12/19/2016 Normal colonoscopy-10 year follow-up PAST SURGICAL HISTORY OF 1982 corrective jaw surgery ALLERGIES Patient has no known allergies. MEDICATIONS Current Outpatient Medications Medication Sig omeprazole (PRILOSEC) 20 mg capsule Take 1 capsule by mouth daily before breakfast. 1/2 hr before meal. empagliflozin (JARDIANCE) 10 mg tablet Take 1 tablet by mouth daily with breakfast. clonazePAM (KLONOPIN) 0.5 mg tablet Take 0.5 mg by mouth three times daily as needed. furosemide (LASIX) 20 mg tablet Take 1 tablet by mouth once daily. potassium chloride ER (K-DUR, KLOR-CON) 20 mEq tablet Take 1 tablet by mouth once daily. omega-3 fatty acids (FISH OIL CONCENTRATE) 1,000 mg cap Take 1 capsule by mouth once daily. Cholecalciferol, Vitamin D3, 25 mcg (1,000 unit) cap Take 1 capsule by mouth once daily. acetaminophen (TYLENOL EXTRA STRENGTH) 500 mg tablet Take 1-2 tablets by mouth every 8 hours as needed for pain. magnesium hydroxide (MILK OF MAGNESIA) 400 mg/5 mL suspension TAKE 15ML BY MOUTH DAILY NEEDED FOR CONSTIPATION (FOR NO BOWEL MOVEMENT AFTER 3 Lancing Device with Lancets ([employer] DELICA PLUS LANC DEV) Check blood sugars twice a day. Dx: E11.21 aspirin, enteric coated (ASPIRIN, ENTERIC COATED) 325 mg EC tablet Take 1 tablet by mouth once daily. Take with food. insulin needles, DISPOSABLE, (PEN NEEDLE) 31 gauge x 5/16 Use one needle per dose. Once per day. insulin glargine (LANTUS SOLOSTAR U-100 INSULIN) 100 unit/mL (3 mL) Give 48 units subq daily at 4 PM or as directed pramipexole (MIRAPEX) 0.5 mg tablet Take 0.5 tablets by mouth daily at bedtime. Lancets lancets Test blood sugar(s) 2 times daily. Dx: Other DM Code E11.21 Insulin: Yes blood sugar diagnostic (BLOOD GLUCOSE TEST) test strip testing twice daily Insulin yes Use as instructed DXE11.21 guaiFENesin (MUCINEX) 600 mg 12 hr tablet Take 2 tablets by mouth twice daily. risperiDONE orally disintegrating (RISPERDAL M) 1 mg disintegrating tablet Take 2 mg by mouth daily at bedtime. cloZAPine (CLOZARIL) 100 mg tablet Take by mouth. Takes 25mg in the morning and 500mg at bedtime albuterol HFA (PROAIR HFA) 90 mcg/actuation inhaler Inhale 2 Puffs as instructed every 4 hours as needed (FOR COUGH OR WHEEZE). umeclidinium (INCRUSE ELLIPTA) 62.5 mcg/actuation inhaler Inhale 1 Puff as instructed once daily. Inhale one puff once daily. DO NOT CLICK OPEN UNTIL READY FOR DOSE fluticasone-vilanterol (BREO ELLIPTA) 100-25 mcg/dose inhaler Inhale 1 Inhalation as instructed once daily. Per Dr. Sibilia Comp Stocking,Knee,Regular,Med misc Patient to be measured for correct size. 20-30 mmHg Dx: I50.31 Insulin Syringe-Needle U-100 (BD INSULIN SYRINGE) 1 mL 28 gauge x 1/2 syrg Use as directed daily COMPOUNDED PRESCRIPTION BIPAP of 09/19 on [address]L oxygen per Dr[address] Ramirez Lancets lancets test BS twice daily 2 days a week- dx 250.00 - non-insulin blood sugar diagnostic (FREESTYLE LITE STRIPS) test strip test BS twice daily - dx - 250.00 -insulin Yes Blood-Glucose Meter (FREESTYLE LITE METER) monitoring kit Used once daily to check blood sugar. 250.00 risperidone (RISPERDAL CONSTA) 50 mg/2 mL INTRAMUSC. injection Inject 2 mL intramuscularly every 2 weeks. pravastatin (PRAVACHOL) 20 mg tablet Take 1 tablet by mouth once daily. HOLD 06/29/21 for 4 weeks due to leg aches and cramps ibuprofen (MOTRIN) 200 mg tablet Take 1 tablet by mouth every 8 hours as needed for pain. lubiprostone (AMITIZA) 24 mcg capsule Take 1 capsule by mouth twice daily with meals. Ferrous Gluconate (FERGON) 324 mg (38 mg iron) tablet Take 1 tablet by mouth twice daily with meals. polyethylene glycol 3350 (MIRALAX) 17 gram/dose powder Take 17 .5 tsps as needed for constipation. metFORMIN ER (GLUCOPHAGE XR) 500 mg 24 hr tablet Take 2 tablets by mouth twice daily before meals. glipiZIDE (GLUCOTROL) 5 mg tablet Take 1 tablet by mouth twice daily. metoprolol succinate ER (TOPROL XL) 25 mg 24 hr tablet TAKE 1 TABLET BY MOUTH EVERY EVENING METOPROLOL SUCCINATE ORAL Take 12.5 mg by mouth twice daily. (Patient not taking: Reported on 12/03/2021 ) Blood Pressure Monitor 1 Each twice daily. desvenlafaxine ER (PRISTIQ) 50 mg 24 hr tablet Take 50 mg by mouth once daily. (Patient not taking: Reported on 12/03/2021 ) No current facility-administered medications for this visit. FAMILY HISTORY Problem Relation Age of Onset Psychiatry Mother depression Psychiatry Sister deperssion other (lung cancer) Paternal Grandfather Social History Tobacco Use Smoking status: Former Smoker Packs/day: 2.00 Years: 20.00 Pack years: 40.00 Types: Cigarettes Quit date: 01/11/2014 Years since quittin.2 Smokeless tobacco: Never Used Vaping Use Vaping Use: Never used Substance Use Topics Alcohol use: No Drug use: No Comment: jeremy- Teen yrs, but not now EXAM: BP 120/82 Pulse 103 Resp 18 LMP 09/12/2017 SpO2 98% PHYSICAL EXAM: General Appearance: Well appearing, alert, in no acute distress, well-hydrated, well nourished.. Skin: Skin color, texture, turgor normal, no suspicious rashes or lesions. Bilateral cheeks, nose, and chin with some redness and telangiectasia. Linear ana lilia on the right lower cheek/neck where cpap strap sits -- redness and peeling skin. Head: Normocephalic, no masses, lesions, tenderness or abnormalities. Eyes: Anicteric sclera. Extraocular movements are intact. . Neurologic: Gait normal. ASSESSMENT/PLAN: 1. Skin irritation - ICD9: 709.9, ICD10: R23.8 (primary diagnosis) Will start triamcinolone ointment to the area twice daily X 2 weeks. Discussed using a piece of gauze between face and cpap strap until healed. 2. Rosacea - ICD9: 695.3, ICD10: L71.9 Discussed treatment options. Caregiver would like to get current irritation cleared up and then consider starting treatment w/ topical medication. She will message/call when she is ready to start this. Discussed treatment plan and patient voices understanding. Patient's questions answered appropriately. Medications and potential side effects were discussed and patient voices understanding. Return to the office as scheduled or as needed for worsening/no improvement. Radha Batista APRN.PAVITHRA documented in this encounter [facility] 01-30-2022 Instructions Radha Batista APRN.CNP - 01/30/2022 1:40 PM EDT 1. Moist heat/ice to the affected area, as discussed. 2. Ibuprofen 200-400 mg every 8 hours as needed for pain. 3. Stretching and massage, as discussed. 4. Let us know if no better or any worsening. documented in this encounter [facility] 01-30-2022 History of Present illness Narrative This is a 56 year old female who presents today with: Patient presents with: Right Hip Pain: x 2 weeks HISTORY OF PRESENT ILLNESS: Brittnee Le is a 56 year old female. Patient presents with: Right Hip Pain: x 2 weeks Pt presents today with complaint of right hip pain. Started a couple of weeks ago. No known injury. Laying on the hip can hurt. She will have to turn herself to get off the hip. Hasn't found anything to help the hip. No popping/cracking in the hip. Refers that her foot felt hot for a couple of days, but that feels better now. No back pain. Her Tylenol was previously limited due to history of fatty liver. PAST MEDICAL HISTORY: PAST MEDICAL HISTORY Diagnosis Date Bilateral pneumonia 07/23/2018 Admit [facility]: pneumococcal suspected, neg culture. 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 [facility], pt was on metformin for a while but taken off - pt never told if she had DM or not Major depressive disorder, recurrent episode, unspecified Nonspecific elevation of levels of transaminase or lactic acid dehydrogenase (LDH) LIDA (obstructive sleep apnea) Pneumonia Schizophreniform disorder, chronic condition (HCC) Simple endometrial hyperplasia without atypia mirena IUD 01/2011 PAST SURGICAL HISTORY Procedure Laterality Date CHOLECYSTECTOMY 1998 open COLONOSCOPY W/BIOPSY SINGLE/MULTIPLE 12/19/2016 Normal colonoscopy-10 year follow-up PAST SURGICAL HISTORY OF 1982 corrective jaw surgery ALLERGIES Patient has no known allergies. MEDICATIONS Current Outpatient Medications Medication Sig lubiprostone (AMITIZA) 24 mcg capsule Take 1 capsule by mouth twice daily with meals. Ferrous Gluconate (FERGON) 324 mg (38 mg iron) tablet Take 1 tablet by mouth twice daily with meals. clonazePAM (KLONOPIN) 0.5 mg tablet Take 0.5 mg by mouth three times daily as needed. polyethylene glycol 3350 (MIRALAX) 17 gram/dose powder Take 17 .5 tsps as needed for constipation. metFORMIN ER (GLUCOPHAGE XR) 500 mg 24 hr tablet Take 2 tablets by mouth twice daily before meals. furosemide (LASIX) 20 mg tablet Take 1 tablet by mouth once daily. pravastatin (PRAVACHOL) 20 mg tablet Take 1 tablet by mouth once daily. HOLD 06/29/21 for 4 weeks due to leg aches and cramps empagliflozin (JARDIANCE) 10 mg tablet Take 1 tablet by mouth daily with breakfast. glipiZIDE (GLUCOTROL) 5 mg tablet Take 1 tablet by mouth twice daily. potassium chloride ER (K-DUR, KLOR-CON) 20 mEq tablet Take 1 tablet by mouth once daily. Cholecalciferol, Vitamin D3, 25 mcg (1,000 unit) cap Take 1 capsule by mouth once daily. omeprazole (PRILOSEC) 20 mg capsule Take 1 capsule by mouth daily before breakfast. 1/2 hr before meal. metoprolol succinate ER (TOPROL XL) 25 mg 24 hr tablet TAKE 1 TABLET BY MOUTH EVERY EVENING magnesium hydroxide (MILK OF MAGNESIA) 400 mg/5 mL suspension TAKE 15ML BY MOUTH DAILY NEEDED FOR CONSTIPATION (FOR NO BOWEL MOVEMENT AFTER 3 polyethylene glycol 3350 (MIRALAX, GLYCOLAX) 17 gram packet Take 1 Packet by mouth once daily. Dissolve dose in 4 - 8 ounces of liquid and take as directed. Lancing Device with Lancets ([employer] PLUS LANC DEV) Check blood sugars twice a day. Dx: E11.21 aspirin, enteric coated (ASPIRIN, ENTERIC COATED) 325 mg EC tablet Take 1 tablet by mouth once daily. Take with food. insulin needles, DISPOSABLE, (PEN NEEDLE) 31 gauge x 5/16 Use one needle per dose. Once per day. insulin glargine (LANTUS SOLOSTAR U-100 INSULIN) 100 unit/mL (3 mL) Give 48 units subq daily at 4 PM or as directed pramipexole (MIRAPEX) 0.5 mg tablet Take 0.5 tablets by mouth daily at bedtime. Lancets lancets Test blood sugar(s) 2 times daily. Dx: Other DM Code E11.21 Insulin: Yes blood sugar diagnostic (BLOOD GLUCOSE TEST) test strip testing twice daily Insulin yes Use as instructed DXE11.21 guaiFENesin (MUCINEX) 600 mg 12 hr tablet Take 2 tablets by mouth twice daily. Blood Pressure Monitor 1 Each twice daily. risperiDONE orally disintegrating (RISPERDAL M) 1 mg disintegrating tablet Take 2 mg by mouth daily at bedtime. cloZAPine (CLOZARIL) 100 mg tablet Take by mouth. Takes 25mg in the morning and 500mg at bedtime albuterol HFA (PROAIR HFA) 90 mcg/actuation inhaler Inhale 2 Puffs as instructed every 4 hours as needed (FOR COUGH OR WHEEZE). umeclidinium (INCRUSE ELLIPTA) 62.5 mcg/actuation inhaler Inhale 1 Puff as instructed once daily. Inhale one puff once daily. DO NOT CLICK OPEN UNTIL READY FOR DOSE fluticasone-vilanterol (BREO ELLIPTA) 100-25 mcg/dose inhaler Inhale 1 Inhalation as instructed once daily. Per Dr. Ramirez Comp Trish,Knee,Regular,[facility] Patient to be measured for correct size. 20-30 mmHg Dx: I50.31 Insulin Syringe-Needle U-100 (BD INSULIN SYRINGE) 1 mL 28 gauge x 1/2 syrg Use as directed daily COMPOUNDED PRESCRIPTION BIPAP of 09/19 on [address]L oxygen per Dr[address] Ramirez Lancets lancets test BS twice daily 2 days a week- dx 250.00 - non-insulin blood sugar diagnostic (FREESTYLE LITE STRIPS) test strip test BS twice daily - dx - 250.00 -insulin Yes Blood-Glucose Meter (FREESTYLE LITE METER) monitoring kit Used once daily to check blood sugar. 250.00 risperidone (RISPERDAL CONSTA) 50 mg/2 mL INTRAMUSC. injection Inject 2 mL intramuscularly every 2 weeks. omega-3 fatty acids (FISH OIL CONCENTRATE) 1,000 mg cap Take 1 capsule by mouth once daily. acetaminophen (TYLENOL EXTRA STRENGTH) 500 mg tablet Take 1-2 tablets by mouth every 8 hours as needed for pain. (Patient not taking: Reported on 09/26/2021 ) METOPROLOL SUCCINATE ORAL Take 12.5 mg by mouth twice daily. (Patient not taking: Reported on 12/03/2021 ) desvenlafaxine ER (PRISTIQ) 50 mg 24 hr tablet Take 50 mg by mouth once daily. (Patient not taking: Reported on 12/03/2021 ) No current facility-administered medications for this visit. FAMILY HISTORY Problem Relation Age of Onset Psychiatry Mother depression Psychiatry Sister deperssion other (lung cancer) Paternal Grandfather Social History Tobacco Use Smoking status: Former Smoker Packs/day: 2.00 Years: 20.00 Pack years: 40.00 Types: Cigarettes Quit date: 01/11/2014 Years since quittin.0 Smokeless tobacco: Never Used Vaping Use Vaping Use: Never used Substance Use Topics Alcohol use: No Drug use: No Comment: jeremy- Teen yrs, but not now EXAM: BP 112/78 Pulse 106 Resp 16 Wt 85.6 kg (188 lb 12.8 oz) [facility] 09/12/2017 BMI 35.67 kg/m PHYSICAL EXAM: General Appearance: Well appearing, alert, in no acute distress, well-hydrated, well nourished.. Skin: Skin color, texture, turgor normal, no suspicious rashes or lesions. Head: Normocephalic, Extraocular movements are intact. . Back:no pain to palpation of vertebrae, good flexion and extension, good range of motion, reflexes are 2+ and symmetric, motor and sensory appear to be normal, negative SLR test, no evidence of scoliosis. Some tenderness in the upper right buttock. Hip ROM intact with some mild discomfort with internal rotation and adduction. Lungs: Lungs clear to auscultation. No wheezing, rhonchi, rales.. Heart: RRR without murmur, gallop, or rubs. No ectopy. Extremities: No deformities, edema, skin discoloration, clubbing or cyanosis. Good capillary refill. Neurologic: Gait normal. ASSESSMENT/PLAN: 1. Right hip pain - ICD9: 719.45, ICD10: M25.551 Can go ahead and use ibuprofen as needed. Encouraged alternating moist heat and ice to the area. She can also use massage (i.e. with a tennis ball) to help massage the area. Encouraged to stay active. Stretches discussed. - IBUPROFEN 200 MG TABLET Discussed treatment plan and patient voices understanding. Patient's questions answered appropriately. Medications and potential side effects were discussed and patient voices understanding. Return to the office as scheduled or as needed for worsening/no improvement. Radha Batista APRN.MANUFACTURING SPECIALIST The patient indicates understanding of these issues and agrees with the plan. This note was partially generated using [employer] recognition system. Note was reviewed for accuracy. There may be minor misspellings or grammar miscues with [employer] voice recognition. documented in this encounter [facility] 01-29-2022 Miscellaneous Notes Haylee notified, appt scheduled. Frank Joya LPN Needs an appointment to have back pain evaluated. Radha Batista APRN.PAVITHRA Haylee, case management social worker/social and human services assistant [facility] calling and states that pt is having muscle/sciatic pain. Pt lives in a long-term. This pain is upsetting, agitating an working on pt's mental health. Pt was on Tylenol but was discontinued due to fatty liver. Haylee is requesting something pt can take for the above pain, [id number] be sent to [facility] if possible. Even though OTC they would still need to have a prescription sent. Haylee will be calling back later to schedule an apt for pt. Please advise Haylee. Brandy Mark LPN documented in this encounter [facility] 01-14-2022 History of Present illness Narrative Patient presents with: 6 Month Exam HPI: Patient presents today for office visit for follow up. Accompanies by her pillowcase folder. Seeing psych. Recently saw cardiology for tachycardia. Sees Dr. Ramirez for her lida and pulmonary issues. No chest pain or worsening shortness of breath. Has been overall doing well. DM sugars log looks ok. No hypoglycemic spells. RLS:no issues HX of water intoxication:last sodium was stable. Due for labs. MEDICATIONS: Current Outpatient Medications Medication Sig lubiprostone (AMITIZA) 24 mcg capsule Take 1 capsule by mouth twice daily with meals. Ferrous Gluconate (FERGON) 324 mg (38 mg iron) tablet Take 1 tablet by mouth twice daily with meals. clonazePAM (KLONOPIN) 0.5 mg tablet Take 0.5 mg by mouth three times daily as needed. metFORMIN ER (GLUCOPHAGE XR) 500 mg 24 hr tablet Take 2 tablets by mouth twice daily before meals. furosemide (LASIX) 20 mg tablet Take 1 tablet by mouth once daily. pravastatin (PRAVACHOL) 20 mg tablet Take 1 tablet by mouth once daily. HOLD 06/29/21 for 4 weeks due to leg aches and cramps empagliflozin (JARDIANCE) 10 mg tablet Take 1 tablet by mouth daily with breakfast. glipiZIDE (GLUCOTROL) 5 mg tablet Take 1 tablet by mouth twice daily. potassium chloride ER (K-DUR, KLOR-CON) 20 mEq tablet Take 1 tablet by mouth once daily. omega-3 fatty acids (FISH OIL CONCENTRATE) 1,000 mg cap Take 1 capsule by mouth once daily. Cholecalciferol, Vitamin D3, 25 mcg (1,000 unit) cap Take 1 capsule by mouth once daily. omeprazole (PRILOSEC) 20 mg capsule Take 1 capsule by mouth daily before breakfast. 1/2 hr before meal. metoprolol succinate ER (TOPROL XL) 25 mg 24 hr tablet TAKE 1 TABLET BY MOUTH EVERY EVENING aspirin, enteric coated (ASPIRIN, ENTERIC COATED) 325 mg EC tablet Take 1 tablet by mouth once daily. Take with food. insulin glargine (LANTUS SOLOSTAR U-100 INSULIN) 100 unit/mL (3 mL) Give 48 units subq daily at 4 PM or as directed pramipexole (MIRAPEX) 0.5 mg tablet Take 0.5 tablets by mouth daily at bedtime. guaiFENesin (MUCINEX) 600 mg 12 hr tablet Take 2 tablets by mouth twice daily. risperiDONE orally disintegrating (RISPERDAL M) 1 mg disintegrating tablet Take 2 mg by mouth daily at bedtime. cloZAPine (CLOZARIL) 100 mg tablet Take by mouth. Takes 25mg in the morning and 500mg at bedtime umeclidinium (INCRUSE ELLIPTA) 62.5 mcg/actuation inhaler Inhale 1 Puff as instructed once daily. Inhale one puff once daily. DO NOT CLICK OPEN UNTIL READY FOR DOSE fluticasone-vilanterol (BREO ELLIPTA) 100-25 mcg/dose inhaler Inhale 1 Inhalation as instructed once daily. Per Dr. Ramirez polyethylene glycol 3350 (MIRALAX) 17 gram/dose powder Take 17 .5 tsps as needed for constipation. acetaminophen (TYLENOL EXTRA STRENGTH) 500 mg tablet Take 1-2 tablets by mouth every 8 hours as needed for pain. (Patient not taking: Reported on 09/26/2021 ) magnesium hydroxide (MILK OF MAGNESIA) 400 mg/5 mL suspension TAKE 15ML BY MOUTH DAILY NEEDED FOR CONSTIPATION (FOR NO BOWEL MOVEMENT AFTER 3 polyethylene glycol 3350 (MIRALAX, GLYCOLAX) 17 gram packet Take 1 Packet by mouth once daily. Dissolve dose in 4 - 8 ounces of liquid and take as directed. Lancing Device with Lancets ([employer] PLUS LANC DEV) Check blood sugars twice a day. Dx: E11.21 insulin needles, DISPOSABLE, (PEN NEEDLE) 31 gauge x 5/16 Use one needle per dose. Once per day. Lancets lancets Test blood sugar(s) 2 times daily. Dx: Other DM Code E11.21 Insulin: Yes blood sugar diagnostic (BLOOD GLUCOSE TEST) test strip testing twice daily Insulin yes Use as instructed DXE11.21 METOPROLOL SUCCINATE ORAL Take 12.5 mg by mouth twice daily. (Patient not taking: Reported on 12/03/2021 ) Blood Pressure Monitor 1 Each twice daily. albuterol HFA (PROAIR HFA) 90 mcg/actuation inhaler Inhale 2 Puffs as instructed every 4 hours as needed (FOR COUGH OR WHEEZE). Comp Stocking,Knee,Regular,Med misc Patient to be measured for correct size. 20-30 mmHg Dx: I50.31 Insulin Syringe-Needle U-100 (BD INSULIN SYRINGE) 1 mL 28 gauge x 1/2 syrg Use as directed daily COMPOUNDED PRESCRIPTION BIPAP of 09/19 on [address]L oxygen per Dr[address] Ramirez desvenlafaxine ER (PRISTIQ) 50 mg 24 hr tablet Take 50 mg by mouth once daily. (Patient not taking: Reported on 12/03/2021 ) Lancets lancets test BS twice daily 2 [...] Known Allergies PAST MEDICAL HISTORY Diagnosis Date Bilateral pneumonia 07/23/2018 Admit [facility]: pneumococcal suspected, neg culture. 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 [facility], pt was on metformin for a while but taken off - pt never told if she had DM or not Major depressive disorder, recurrent episode, unspecified (HCC) Nonspecific elevation of levels of transaminase or lactic acid dehydrogenase (LDH) LIDA (obstructive sleep apnea) Pneumonia Schizophreniform disorder, chronic condition (HCC) Simple endometrial hyperplasia without atypia mirena IUD 01/2011 PAST SURGICAL HISTORY Procedure Laterality Date COLONOSCOPY W/BX 12/19/2016 Normal colonoscopy-10 year follow-up PAST SURGICAL HISTORY OF 1982 corrective jaw surgery REMOVAL GALLBLADDER 1998 open FAMILY HISTORY Problem Relation Age of Onset Psychiatry Mother depression Psychiatry Sister deperssion other (lung cancer) Paternal Grandfather Social History Tobacco Use Smoking status: Former Smoker Packs/day: 2.00 Years: 20.00 Pack years: 40.00 Types: Cigarettes Quit date: 01/11/2014 Years since quittin.0 Smokeless tobacco: Never Used Vaping Use Vaping Use: Never used Substance Use Topics Alcohol use: No Drug use: No Comment: marijunan- Teen yrs, but not now Reviewed current medications, allergies, past medical history, surgical history, family history and social history today. REVIEW OF SYSTEMS GI: Negative for has occasional runny bowels. .wlred All other reviewed and negative other than HPI. HEALTH MAINTENANCE: Reviewed health maintenance issues today and recommended the following in detail. DEPRESSION SCREENING -denies DIABETIC FOOT EXAM - sees podiatry regularly, Dr. Villavicencio in [place]. Saw in August LUNG CANCER SCREENING-will check with Dr. Ramirez is due. Advanced care planning: has legal guardian. VITALS: Pulse 118 Wt 84.8 kg (187 lb) LMP 09/12/2017 SpO2 95% BMI 35.33 kg/m Last 4 Encounter Wt Readings: Date: Wt: 01/14/2022 84.8 kg (187 lb) 12/03/2021 85.3 kg (188 lb) 09/26/2021 84.8 kg (187 lb) 07/19/2021 86.2 kg (190 lb) PHYSICAL EXAMINATION: General [...] swelling, deformity, or tenderness Peripheral pulses: Normal Neuro: Negative. ASSESSMENT/PLAN: 1. Tachycardia - ICD9: 785.0, ICD10: R00.0 (primary diagnosis) - stable. Continue to follow with cardiology. 2. SVT (supraventricular tachycardia) ([facility]) - ICD9: 427.89, ICD10: I47.1 - as above. 3. Acute diastolic CHF (congestive heart failure) ([facility]) - ICD9: 428.31, 428.0, ICD10: I50.31 - no signs currently. 4. Chronic obstructive pulmonary disease, unspecified COPD type ([facility]) - ICD9: 496, ICD10: J44.9 - per Dr. Ramirez. 5. LIDA (obstructive sleep apnea) - ICD9: 327.23, ICD10: G47.33 - wearing her cpap 6. Water intoxication - ICD9: 276.69, ICD10: E87.79 - will follow. - BASIC METABOLIC PNL 7. Type 2 diabetes mellitus with diabetic nephropathy, with long-term current use of insulin (HCC) - ICD9: 250.40, 583.81, V58.67, ICD10: E11.21, Z79.4 Controlled. - Continue current medications - HGB A1C - LIPID PANEL BASIC - ALBUMIN/CREAT RATIO RND UR - VITAMIN D 25 HYDROXY 8. Schizophreniform disorder, chronic condition (HCC) - ICD9: 295.42, ICD10: F20.81 - per [facility] 9. Vitamin D deficiency - ICD9: 268.9, ICD10: E55.9 - will follow. 10. Advance care planning - ICD9: V65.49, ICD10: Z71.89 - done. Boris Vance RTO in six months and prn. documented in this encounter [facility] 01-14-2022 Miscellaneous Notes Patient has been identified by name and date of : Yes Pharmacy phones for refill(s): Pending Prescriptions Disp Refills LUBIPROSTONE 24 MCG CAPSULE 60 capsule 11 Sig: Take 1 capsule by mouth twice daily with meals. MIGUELINA: No FERROUS GLUCONATE 324 MG (38 MG IRON) TABLET 60 tablet 5 Sig: Take 1 tablet by mouth twice daily with meals. MIGUELINA: No Date of last office visit in primary care: 09/26/2021, has appt 01/14/2022 Last 2 Encounter Wt Readings: Date: Wt: 12/03/2021 85.3 kg (188 lb) 09/26/2021 84.8 kg (187 lb) Previous labs/tests for medication: Blood Pressure: BUN (mg/dL) Date Value 07/19/2021 8 Sodium (mmol/L) Date Value 07/19/2021 133 Last 1 Encounter BP Readings: Date: BP: 12/03/2021 108/70 Blood Counts: WBC (k/uL) Date Value 07/19/2021 9.57 RBC (m/uL) Date Value 07/19/2021 4.89 Hematocrit (%) Date Value 07/19/2021 43.0 Hemoglobin (g/dL) Date Value 07/19/2021 14.5 Platelet Count (k/uL) Date Value 07/19/2021 227 Please advise. Thank you. Maye Ferrer LPN documented in this encounter [facility] 01-11-2022 Miscellaneous Notes Patient has been identified by name and date of : Yes Pharmacy phones for refill(s): Pending Prescriptions Disp Refills POLYETHYLENE GLYCOL 3350 17 GRAM/DOSE ORAL POWDER 235 g 6 Sig: Take 17 .5 tsps as needed for constipation. MIGUELINA: No Date of last office visit with pcp: 09-26-21. Next appt: 01-14-22 Last 2 Encounter Wt Readings: Date: Wt: 12/03/2021 85.3 kg (188 lb) 09/26/2021 84.8 kg (187 lb) Previous labs/tests for medication: Blood Pressure: BUN (mg/dL) Date Value 07/19/2021 8 Sodium (mmol/L) Date Value 07/19/2021 133 Last 1 Encounter BP Readings: Date: BP: 12/03/2021 108/70 Liver Function: ALT (U/L) Date Value 07/19/2021 34 AST (U/L) Date Value 07/19/2021 19 Please advise. Thank you. Alma Smart RN documented in this encounter [facility] documented as of this encounter (statuses as of 01/14/2022) [facility]-09-[facility]21 History of Past illness Narrative* Problem Noted Date Resolved Date H/O sinus tachycardia 05/21/2021 01/14/2022 H/O open hand wound 08/12/2018 01/14/2022 Overview: Seeing wound care Pneumonia of both upper lobes due to infectious organism 08/06/2018 08/06/2018 Encounter for screening for malignant neoplasm o f colon 12/22/2016 01/14/2022 Type 2 diabetes mellitus with renal manifestatio ns 10/29/2013 11/07/2017 Tobacco abuse 09/07/2012 11/07/2016 Routine general medical exam ination at a health care facility 08/29/2009 11/26/2011 Overview: 08/29/2009, from [facility] 05/03/2011, yearly check Routine gynecological examination 08/29/2009 11/26/2011 Overview: [facility], [facility] [place] DM w/o Complication Type II 11/08/200802/10 Other abnormal glucose 8 Overview: found at [facility], pt was on metformin for a while but taken off - pt never told if she had DM or not A1c 6.5% as of documented as of this encounter (statuses as of 01/29/2022) [facility] History of Past illness Narrative* Problem Noted Date Resolved Date H/O sinus tachycardia 05/21/2021 01/14/2022 H/O open hand wound 08/12/2018 01/14/2022 Overview: Seeing wound care Pneumonia of both upper lobes due to infectious organism 08/06/2018 08/06/2018 Encounter for screening for malignant neoplasm o f colon 12/22/2016 01/14/2022 Type 2 diabetes mellitus with renal manifestatio ns 10/29/2013 11/07/2017 Tobacco abuse 09/07/2012 11/07/2016 Routine general medical exam ination at a health care facility 08/29/2009 11/26/2011 Overview: 08/29/2009, from [facility] 05/03/2011, yearly check Routine gynecological examination 08/29/2009 11/26/2011 Overview: [facility], [facility] [place] w/o Complication Type II 11/08/200802/10 Other abnormal glucose 8 Overview: found at [facility], pt was on metformin for a while but taken off - pt never told if she had DM or not A1c 6.5% as of documented as of this encounter (statuses as of 01/30/2022) [facility] History of Past illness Narrative* Problem Noted Date Resolved Date H/O sinus tachycardia 05/21/2021 01/14/2022 H/O open hand wound 08/12/2018 01/14/2022 Overview: Seeing wound care Pneumonia of both upper lobes due to infectious organism 08/06/2018 08/06/2018 Encounter for screening for malignant neoplasm o f colon 12/22/2016 01/14/2022 Type 2 diabetes mellitus with renal manifestatio ns 10/29/2013 11/07/2017 Tobacco abuse 09/07/2012 11/07/2016 Routine general medical exam ination at a health care facility 08/29/2009 11/26/2011 Overview: 08/29/2009, from [facility] 05/03/2011, yearly check Routine gynecological examination 08/29/2009 11/26/2011 Overview: [facility], [facility] [place] w/o Complication Type II 11/08/200802/10 Other abnormal glucose 8 Overview: found at [facility], pt was on metformin for a while but taken off - pt never told if she had DM or not A1c 6.5% as of documented as of this encounter (statuses as of 03/27/2022) [facility] History of Past illness Narrative* Problem Noted Date Resolved Date H/O sinus tachycardia 05/21/2021 01/14/2022 H/O open hand wound 08/12/2018 01/14/2022 Overview: Seeing wound care Pneumonia of both upper lobes due to infectious organism 08/06/2018 08/06/2018 Encounter for screening for malignant neoplasm o f colon 12/22/2016 01/14/2022 Type 2 diabetes mellitus with renal manifestatio ns 10/29/2013 11/07/2017 Tobacco abuse 09/07/2012 11/07/2016 Routine general medical exam ination at a health care facility 08/29/2009 11/26/2011 Overview: 08/29/2009, from [facility] 05/03/2011, yearly check Routine gynecological examination 08/29/2009 11/26/2011 Overview: [facility], [facility] [place] w/o Complication Type II 11/08/200802/10 Other abnormal glucose 8 [facility]: [facility] pt was on metformin for a while but taken off - pt never told if she had DM or not A1c 6.5% as of documented as of this encounter (statuses as of 05/02/2022) [facility] History of Past illness Narrative* Problem Noted Date Resolved Date H/O sinus tachycardia 05/21/2021 01/14/2022 H/O open hand wound 08/12/2018 01/14/2022 Overview: Seeing wound care Pneumonia of both upper lobes due to infectious organism 08/06/2018 08/06/2018 Encounter for screening for malignant neoplasm o f colon 12/22/2016 01/14/2022 Type 2 diabetes mellitus with renal manifestatio ns 10/29/2013 11/07/2017 Tobacco abuse 09/07/2012 11/07/2016 Routine general medical exam ination at a health care facility 08/29/2009 11/26/2011 Overview: 08/29/2009, from [facility] 05/03/2011, yearly check Routine gynecological examination 08/29/2009 11/26/2011 Overview: [facility], [facility] [place] w/o Complication Type II 11/08/200802/10 Other abnormal glucose 8 Overview: found at [facility], pt was on metformin for a while but taken off - pt never told if she had DM or not A1c 6.5% as of documented as of this encounter (statuses as of 05/07/2022) [facility] History of Past illness Narrative* Problem Noted Date Resolved Date H/O sinus tachycardia 05/21/2021 01/14/2022 H/O open hand wound 08/12/2018 01/14/2022 Overview: Seeing wound care Pneumonia of both upper lobes due to infectious organism 08/06/2018 08/06/2018 Encounter for screening for malignant neoplasm o f colon 12/22/2016 01/14/2022 Type 2 diabetes mellitus with renal manifestatio ns 10/29/2013 11/07/2017 Tobacco abuse 09/07/2012 11/07/2016 Routine general medical exam ination at a health care facility 08/29/2009 11/26/2011 Overview: 08/29/2009, from [facility] 05/03/2011, yearly check Routine gynecological examination 08/29/2009 11/26/2011 Overview: [facility], [facility] [place] DM w/o Complication Type II 11/08/200802/10 Other abnormal glucose 8 Overview: found at [facility], pt was on metformin for a while but taken off - pt never told if she had DM or not A1c 6.5% as of documented as of this encounter (statuses as of 05/08/2022) [facility] History of Past illness Narrative* Problem Noted Date Resolved Date H/O sinus tachycardia 05/21/2021 01/14/2022 H/O open hand wound 08/12/2018 01/14/2022 Overview: Seeing wound care Pneumonia of both upper lobes due to infectious organism 08/06/2018 08/06/2018 Encounter for screening for malignant neoplasm o f colon 12/22/2016 01/14/2022 Type 2 diabetes mellitus with renal manifestatio ns 10/29/2013 11/07/2017 Tobacco abuse 09/07/2012 11/07/2016 Routine general medical exam ination at a health care facility 08/29/2009 11/26/2011 Overview: 08/29/2009, from [facility] 05/03/2011, yearly check Routine gynecological examination 08/29/2009 11/26/2011 Overview: [facility], [facility] [place] DM w/o Complication Type II 11/08/200802/10 Other abnormal glucose 8 Overview: found at [facility], pt was on metformin for a while but taken off - pt never told if she had DM or not A1c 6.5% as of documented as of this encounter (statuses as of 06/20/2022) [facility] History of Past illness Narrative* Problem Noted Date Resolved Date H/O sinus tachycardia 05/21/2021 01/14/2022 H/O open hand wound 08/12/2018 01/14/2022 Overview: Seeing wound care Pneumonia of both upper lobes due to infectious organism 08/06/2018 08/06/2018 Encounter for screening for malignant neoplasm o f colon 12/22/2016 01/14/2022 Type 2 diabetes mellitus with renal manifestatio ns 10/29/2013 11/07/2017 Tobacco abuse 09/07/2012 11/07/2016 Routine general medical exam ination at a health care facility 08/29/2009 11/26/2011 Overview: 08/29/2009, from [facility] 05/03/2011, yearly check Routine gynecological examination 08/29/2009 11/26/2011 Overview: [facility], [facility] [place] w/o Complication Type II 11/08/200802/10 Other abnormal glucose 8 Overview: found at [facility], pt was on metformin for a while but taken off - pt never told if she had DM or not A1c 6.5% as of documented as of this encounter (statuses as of 07/05/2022) [facility] History of Past illness Narrative* Problem Noted Date Resolved Date H/O sinus tachycardia 05/21/2021 01/14/2022 H/O open hand wound 08/12/2018 01/14/2022 Overview: Seeing wound care Pneumonia of both upper lobes due to infectious organism 08/06/2018 08/06/2018 Encounter for screening for malignant neoplasm o f colon 12/22/2016 01/14/2022 Type 2 diabetes mellitus with renal manifestatio ns 10/29/2013 11/07/2017 Tobacco abuse 09/07/2012 11/07/2016 Routine general medical exam ination at a health care facility 08/29/2009 11/26/2011 Overview: 08/29/2009, from [facility] 05/03/2011, yearly check Routine gynecological examination 08/29/2009 11/26/2011 Overview: [facility], [facility] [place] w/o Complication Type II 11/08/200802/10 Other abnormal glucose 8 Overview: found at [facility], pt was on metformin for a while but taken off - pt never told if she had DM or not A1c 6.5% as of documented as of this encounter (statuses as of 08/08/2022) [facility] History of Past illness Narrative* Problem Noted Date Resolved Date H/O sinus tachycardia 05/21/2021 01/14/2022 H/O open hand wound 08/12/2018 01/14/2022 Overview: Seeing wound care Pneumonia of both upper lobes due to infectious organism 08/06/2018 08/06/2018 Encounter for screening for malignant neoplasm o f colon 12/22/2016 01/14/2022 Type 2 diabetes mellitus with renal manifestatio ns 10/29/2013 11/07/2017 Tobacco abuse 09/07/2012 11/07/2016 Routine general medical exam ination at a health care facility 08/29/2009 11/26/2011 Overview: 08/29/2009, from [facility] 05/03/2011, yearly check Routine gynecological examination 08/29/2009 11/26/2011 Overview: [facility], [facility] [place] DM w/o Complication Type II 11/08/200802/10 Other abnormal glucose 8 Overview: found at [facility], pt was on metformin for a while but taken off - pt never told if she had DM or not A1c 6.5% as of documented as of this encounter (statuses as of 08/12/2022) [facility] History of Past illness Narrative* Problem Noted Date Resolved Date H/O sinus tachycardia 05/21/2021 01/14/2022 H/O open hand wound 08/12/2018 01/14/2022 Overview: Seeing wound care Pneumonia of both upper lobes due to infectious organism 08/06/2018 08/06/2018 Encounter for screening for malignant neoplasm o f colon 12/22/2016 01/14/2022 Type 2 diabetes mellitus with renal manifestatio ns 10/29/2013 11/07/2017 Tobacco abuse 09/07/2012 11/07/2016 Routine general medical exam ination at a health care facility 08/29/2009 11/26/2011 Overview: 08/29/2009, from [facility] 05/03/2011, yearly check Routine gynecological examination 08/29/2009 11/26/2011 Overview: [facility], [facility] [place] w/o Complication Type II 11/08/200802/10 Other abnormal glucose 8 Overview: found at [facility], pt was on metformin for a while but taken off - pt never told if she had DM or not A1c 6.5% as of documented as of this encounter (statuses as of 08/15/2022) [facility] History of Past illness Narrative* Problem Noted Date Resolved Date H/O sinus tachycardia 05/21/2021 01/14/2022 H/O open hand wound 08/12/2018 01/14/2022 Overview: Seeing wound care Pneumonia of both upper lobes due to infectious organism 08/06/2018 08/06/2018 Encounter for screening for malignant neoplasm o f colon 12/22/2016 01/14/2022 Type 2 diabetes mellitus with renal manifestatio ns 10/29/2013 11/07/2017 Tobacco abuse 09/07/2012 11/07/2016 Routine general medical exam ination at a health care facility 08/29/2009 11/26/2011 Overview: 08/29/2009, from [facility] 05/03/2011, yearly check Routine gynecological examination 08/29/2009 11/26/2011 Overview: [facility], [facility] [place] w/o Complication Type II 11/08/200802/10 Other abnormal glucose 8 Overview: found at [facility], pt was on metformin for a while but taken off - pt never told if she had DM or not A1c 6.5% as of documented as of this encounter (statuses as of 08/15/2022) [facility] History of Past illness Narrative* Problem Noted Date Resolved Date H/O sinus tachycardia 05/21/2021 01/14/2022 H/O open hand wound 08/12/2018 01/14/2022 Overview: Seeing wound care Pneumonia of both upper lobes due to infectious organism 08/06/2018 08/06/2018 Encounter for screening for malignant neoplasm o f colon 12/22/2016 01/14/2022 Type 2 diabetes mellitus with renal manifestatio ns 10/29/2013 11/07/2017 Tobacco abuse 09/07/2012 11/07/2016 Routine general medical exam ination at a health care facility 08/29/2009 11/26/2011 Overview: 08/29/2009, from [facility] 05/03/2011, yearly check Routine gynecological examination 08/29/2009 11/26/2011 Overview: [facility], [facility] [place] w/o Complication Type II 11/08/200802/10 Other abnormal glucose 8 Overview: found at [facility], pt was on metformin for a while but taken off - pt never told if she had DM or not A1c 6.5% as of documented as of this encounter (statuses as of 08/19/2022) [facility] History of Past illness Narrative* Problem Noted Date Resolved Date H/O sinus tachycardia 05/21/2021 01/14/2022 H/O open hand wound 08/12/2018 01/14/2022 Overview: Seeing wound care Pneumonia of both upper lobes due to infectious organism 08/06/2018 08/06/2018 Encounter for screening for malignant neoplasm o f colon 12/22/2016 01/14/2022 Type 2 diabetes mellitus with renal manifestatio ns 10/29/2013 11/07/2017 Tobacco abuse 09/07/2012 11/07/2016 Routine general medical exam ination at a health care facility 08/29/2009 11/26/2011 Overview: 08/29/2009, from [facility] 05/03/2011, yearly check Routine gynecological examination 08/29/2009 11/26/2011 Overview: [facility], [facility] [place] DM w/o Complication Type II 11/08/200802/10 Other abnormal glucose 8 Overview: found at [facility], pt was on metformin for a while but taken off - pt never told if she had DM or not A1c 6.5% as of documented as of this encounter (statuses as of 08/29/2022) [facility] History of Past illness Narrative* Problem Noted Date Resolved Date H/O sinus tachycardia 05/21/2021 01/14/2022 H/O open hand wound 08/12/2018 01/14/2022 Overview: Seeing wound care Pneumonia of both upper lobes due to infectious organism 08/06/2018 08/06/2018 Encounter for screening for malignant neoplasm o f colon 12/22/2016 01/14/2022 Type 2 diabetes mellitus with renal manifestatio ns 10/29/2013 11/07/2017 Tobacco abuse 09/07/2012 11/07/2016 Routine general medical exam ination at a health care facility 08/29/2009 11/26/2011 Overview: 08/29/2009, from [facility] 05/03/2011, yearly check Routine gynecological examination 08/29/2009 11/26/2011 Overview: [facility], [facility] [place] DM w/o Complication Type II 11/08/200802/10 Other abnormal glucose 8 Overview: found at [facility], pt was on metformin for a while but taken off - pt never told if she had DM or not A1c 6.5% as of documented as of this encounter (statuses as of 08/30/2022) [facility] History of Past illness Narrative* Problem Noted Date Resolved Date H/O sinus tachycardia 05/21/2021 01/14/2022 H/O open hand wound 08/12/2018 01/14/2022 Overview: Seeing wound care Pneumonia of both upper lobes due to infectious organism 08/06/2018 08/06/2018 Encounter for screening for malignant neoplasm o f colon 12/22/2016 01/14/2022 Type 2 diabetes mellitus with renal manifestatio ns 10/29/2013 11/07/2017 Tobacco abuse 09/07/2012 11/07/2016 Routine general medical exam ination at a health care facility 08/29/2009 11/26/2011 Overview: 08/29/2009, from [facility] 05/03/2011, yearly check Routine gynecological examination 08/29/2009 11/26/2011 Overview: [facility], [facility] [place] w/o Complication Type II 11/08/200802/10 Other abnormal glucose 8 Overview: found at [facility], pt was on metformin for a while but taken off - pt never told if she had DM or not A1c 6.5% as of documented as of this encounter (statuses as of 09/11/2022) [facility] History of Past illness Narrative* Problem Noted Date Resolved Date H/O sinus tachycardia 05/21/2021 01/14/2022 H/O open hand wound 08/12/2018 01/14/2022 Overview: Seeing wound care Pneumonia of both upper lobes due to infectious organism 08/06/2018 08/06/2018 Encounter for screening for malignant neoplasm o f colon 12/22/2016 01/14/2022 Type 2 diabetes mellitus with renal manifestatio ns 10/29/2013 11/07/2017 Tobacco abuse 09/07/2012 11/07/2016 Routine general medical exam ination at a health care facility 08/29/2009 11/26/2011 Overview: 08/29/2009, from [facility] 05/03/2011, yearly check Routine gynecological examination 08/29/2009 11/26/2011 Overview: [facility], [facility] [place] w/o Complication Type II 11/08/200802/10 Other abnormal glucose 8 Overview: found at [facility], pt was on metformin for a while but taken off - pt never told if she had DM or not A1c 6.5% as of documented as of this encounter (statuses as of 10/06/2022) [facility] History of Past illness Narrative* Problem Noted Date Resolved Date H/O sinus tachycardia 05/21/2021 01/14/2022 H/O open hand wound 08/12/2018 01/14/2022 Overview: Seeing wound care Pneumonia of both upper lobes due to infectious organism 08/06/2018 08/06/2018 Encounter for screening for malignant neoplasm o f colon 12/22/2016 01/14/2022 Type 2 diabetes mellitus with renal manifestatio ns 10/29/2013 11/07/2017 Tobacco abuse 09/07/2012 11/07/2016 Routine general medical exam ination at a health care facility 08/29/2009 11/26/2011 Overview: 08/29/2009, from [facility] 05/03/2011, yearly check Routine gynecological examination 08/29/2009 11/26/2011 Overview: [facility], [facility] [place] w/o Complication Type II 11/08/200802/10 Other abnormal glucose 8 Overview: found at [facility], pt was on metformin for a while but taken off - pt never told if she had DM or not A1c 6.5% as of documented as of this encounter (statuses as of 10/13/2022) [facility] History of Past illness Narrative* Problem Noted Date Resolved Date H/O sinus tachycardia 05/21/2021 01/14/2022 H/O open hand wound 08/12/2018 01/14/2022 Overview: Seeing wound care Pneumonia of both upper lobes due to infectious organism 08/06/2018 08/06/2018 Encounter for screening for malignant neoplasm o f colon 12/22/2016 01/14/2022 Type 2 diabetes mellitus with renal manifestatio ns 10/29/2013 11/07/2017 Tobacco abuse 09/07/2012 11/07/2016 Routine general medical exam ination at a health care facility 08/29/2009 11/26/2011 Overview: 08/29/2009, from [facility] 05/03/2011, yearly check Routine gynecological examination 08/29/2009 11/26/2011 Overview: [facility], [facility] [place] DM w/o Complication Type II 11/08/200802/10 Other abnormal glucose 8 Overview: [facility], pt was on metformin for a while but taken off - pt never told if she had DM or not A1c 6.5% as of documented as of this encounter (statuses as of 12/09/2022) [facility] History of Past illness Narrative* Problem Noted Date Resolved Date H/O sinus tachycardia 05/21/2021 01/14/2022 H/O open hand wound 08/12/2018 01/14/2022 Overview: Seeing wound care Pneumonia of both upper lobes due to infectious organism 08/06/2018 08/06/2018 Encounter for screening for malignant neoplasm o f colon 12/22/2016 01/14/2022 Type 2 diabetes mellitus with renal manifestatio ns 10/29/2013 11/07/2017 Tobacco abuse 09/07/2012 11/07/2016 Routine general medical exam ination at a health care facility 08/29/2009 11/26/2011 Overview: 08/29/2009, from [facility] 05/03/2011, yearly check Routine gynecological examination 08/29/2009 11/26/2011 Overview: [facility], [facility] [place] w/o Complication Type II 11/08/200802/10 Other abnormal glucose 8 Overview: found at [facility], pt was on metformin for a while but taken off - pt never told if she had DM or not A1c 6.5% as of documented as of this encounter (statuses as of 01/30/2023) [facility] History of Past illness Narrative* Problem Noted Date Resolved Date H/O sinus tachycardia 05/21/2021 01/14/2022 H/O open hand wound 08/12/2018 01/14/2022 Overview: Seeing wound care Pneumonia of both upper lobes due to infectious organism 08/06/2018 08/06/2018 Encounter for screening for malignant neoplasm o f colon 12/22/2016 01/14/2022 Type 2 diabetes mellitus with renal manifestatio ns 10/29/2013 11/07/2017 Tobacco abuse 09/07/2012 11/07/2016 Routine general medical exam ination at a health care facility 08/29/2009 11/26/2011 Overview: 08/29/2009, from [facility] 05/03/2011, yearly check Routine gynecological examination 08/29/2009 11/26/2011 Overview: [facility], [facility] [place] DM w/o Complication Type II 11/08/200802/10 Other abnormal glucose 8 Overview: found at [facility], pt was on metformin for a while but taken off - pt never told if she had DM or not A1c 6.5% as of documented as of this encounter (statuses as of 02/14/2023) [facility] History of Past illness Narrative* Problem Noted Date Resolved Date H/O sinus tachycardia 05/21/2021 01/14/2022 H/O open hand wound 08/12/2018 01/14/2022 Overview: Seeing wound care Pneumonia of both upper lobes due to infectious organism 08/06/2018 08/06/2018 Encounter for screening for malignant neoplasm o f colon 12/22/2016 01/14/2022 Type 2 diabetes mellitus with renal manifestatio ns 10/29/2013 11/07/2017 Tobacco abuse 09/07/2012 11/07/2016 Routine general medical exam ination at a health care facility 08/29/2009 11/26/2011 Overview: 08/29/2009, from [facility] 05/03/2011, yearly check Routine gynecological examination 08/29/2009 11/26/2011 Overview: [facility], [facility] [place] w/o Complication Type II 11/08/200802/10 Other abnormal glucose 8 Overview: found at [facility], pt was on metformin for a while but taken off - pt never told if she had DM or not A1c 6.5% as of documented as of this encounter (statuses as of 02/26/2023) [facility] History of Past illness Narrative* Problem Noted Date Diagnosed Date Resolved Date H/O sinus tachycardia 05/21/20212021 H/O open hand wound 08/12/2018 01/15/20 Overview: Seeing wound care Pneumonia of both upper lobe s due to infectious organism 08/06/2018 08/06/2018 Encounter for screening for malignant neoplasm of colon 12/22/2016 01/14/2022 Type 2 diabetes mellitus wit h renal manifestations 10/29/2013 11/07/2017 Tobacco abuse 09/07/2012 11/07/2016 Routine general medical exam ination at a health care facility 08/29/2009 11/26/2011 Overview: 08/29/2009, from [facility] Quintanilla 05/03/2011, yearly check Routine gynecological examination 08/29/2009 11/26/2011 Overview: [facility], [facility] [place] DM w/o Complication Type II 11/08/2008 02/22/2014 Other abnormal glucose 04/29 Overview: found at [facility], pt was on metformin for a while but taken off - pt never told if she had DM or not A1c 6.5% as of documented as of this encounter (statuses as of 04/30/2023) [facility]-09-2021 History of Past illness Narrative* Problem Noted Date Diagnosed Date Resolved Date H/O sinus tachycardia 05/21/20212021 H/O open hand wound 08/12/2018 01/15/20 Overview: Seeing wound care Pneumonia of both upper lobe s due to infectious organism 08/06/2018 08/06/2018 Encounter for screening for malignant neoplasm of colon 12/22/2016 01/14/2022 Type 2 diabetes mellitus wit h renal manifestations 10/29/2013 11/07/2017 Tobacco abuse 09/07/2012 11/07/2016 Routine general medical exam ination at a health care facility 08/29/2009 11/26/2011 Overview: 08/29/2009, from Wojciech Quintanilla 05/03/2011, yearly check Routine gynecological examination 08/29/2009 11/26/2011 Overview: [facility], [facility] [place] DM w/o Complication Type II 11/08/2008 02/22/2014 Other abnormal glucose 04/29 Overview: found at [facility], pt was on metformin for a while but taken off - pt never told if she had DM or not A1c 6.5% as of documented as of this encounter (statuses as of 05/08/2023) [facility]21 History of Past illness Narrative* Problem Noted Date Diagnosed Date Resolved Date H/O sinus tachycardia 05/21/20212021 H/O open hand wound 08/12/2018 01/15/20 22 Overview: Seeing wound care Pneumonia of both upper lobe s due to infectious organism 08/06/2018 08/06/2018 Encounter for screening for malignant neoplasm of colon 12/22/2016 01/14/2022 Type 2 diabetes mellitus wit h renal manifestations 10/29/2013 11/07/2017 Tobacco abuse 09/07/2012 11/07/2016 Routine general medical exam ination at a health care facility 08/29/2009 11/26/2011 Overview: 08/29/2009, from Wojciech Quintanilla 05/03/2011, yearly check Routine gynecological examination 08/29/2009 11/26/2011 Overview: [facility], [facility] DM w/o Complication Type II 11/08/2008 02/22/2014 Other abnormal glucose 04/29 Overview: [facility], pt was on metformin for a while but taken off - pt never told if she had DM or not A1c 6.5% as of documented as of this encounter (statuses as of 05/24/2023) [facility] History of Past illness Narrative* Problem Noted Date Diagnosed Date Resolved Date H/O sinus tachycardia 05/21/20212021 H/O open hand wound 08/12/2018 01/15/20 22 Overview: Seeing wound care Pneumonia of both upper lobe s due to infectious organism 08/06/2018 08/06/2018 Encounter for screening for malignant neoplasm of colon 12/22/2016 01/14/2022 Type 2 diabetes mellitus wit h renal manifestations 10/29/2013 11/07/2017 Tobacco abuse 09/07/2012 11/07/2016 Routine general medical exam ination at a health care facility 08/29/2009 11/26/2011 Overview: 08/29/2009, from Wojciech Quintanilla 05/03/2011, yearly check Routine gynecological examination 08/29/2009 11/26/2011 Overview: [facility], [facility] DM w/o Complication Type II 11/08/2008 02/22/2014 Other abnormal glucose 04/29 Overview: found at [facility], pt was on metformin for a while but taken off - pt never told if she had DM or not A1c 6.5% as of documented as of this encounter (statuses as of 05/26/2023) [facility] History of Past illness Narrative* Problem Noted Date Diagnosed Date Resolved Date H/O sinus tachycardia 05/21/20212021 H/O open hand wound 08/12/2018 01/15/20 Overview: Seeing wound care Pneumonia of both upper lobe s due to infectious organism 08/06/2018 08/06/2018 Encounter for screening for malignant neoplasm of colon 12/22/2016 01/14/2022 Type 2 diabetes mellitus wit h renal manifestations 10/29/2013 11/07/2017 Tobacco abuse 09/07/2012 11/07/2016 Routine general medical exam ination at a health care facility 08/29/2009 11/26/2011 Overview: 08/29/2009, from Wojciech Quintanilla 05/03/2011, yearly check Routine gynecological examination 08/29/2009 11/26/2011 Overview: [facility], [facility] DM w/o Complication Type II 11/08/2008 02/22/2014 Other abnormal glucose 04/29 Overview: found at [facility], pt was on metformin for a while but taken off - pt never told if she had DM or not A1c 6.5% as of documented as of this encounter (statuses as of 05/27/2023) [facility] History of Past illness Narrative* Problem Noted Date Diagnosed Date Resolved Date H/O sinus tachycardia 05/21/20212021 H/O open hand wound 08/12/2018 01/15/20 22 Overview: Seeing wound care Pneumonia of both upper lobe s due to infectious organism 08/06/2018 08/06/2018 Encounter for screening for malignant neoplasm of colon 12/22/2016 01/14/2022 Type 2 diabetes mellitus wit h renal manifestations 10/29/2013 11/07/2017 Tobacco abuse 09/07/2012 11/07/2016 Routine general medical exam ination at a health care facility 08/29/2009 11/26/2011 Overview: 08/29/2009, from Wojciech Quintanilla 05/03/2011, yearly check Routine gynecological examination 08/29/2009 11/26/2011 Overview: [facility], [facility] [place] DM w/o Complication Type II 11/08/2008 02/22/2014 Other abnormal glucose 04/29 Overview: found at [facility], pt was on metformin for a while but taken off - pt never told if she had DM or not A1c 6.5% as of documented as of this encounter (statuses as of 05/28/2023) [facility] History of Past illness Narrative* Problem Noted Date Diagnosed Date Resolved Date H/O sinus tachycardia 05/21/20212021 H/O open hand wound 08/12/2018 01/15/20 22 Overview: Seeing wound care Pneumonia of both upper lobe s due to infectious organism 08/06/2018 08/06/2018 Encounter for screening for malignant neoplasm of colon 12/22/2016 01/14/2022 Type 2 diabetes mellitus wit h renal manifestations 10/29/2013 11/07/2017 Tobacco abuse 09/07/2012 11/07/2016 Routine general medical exam ination at a health care facility 08/29/2009 11/26/2011 Overview: 08/29/2009, from Wojciech Quintanilla 05/03/2011, yearly check Routine gynecological examination 08/29/2009 11/26/2011 Overview: [facility], [facility] [place] w/o Complication Type II 11/08/2008 02/22/2014 Other abnormal glucose 04/29 Overview: found at [facility], pt was on metformin for a while but taken off - pt never told if she had DM or not A1c 6.5% as of documented as of this encounter (statuses as of 06/18/2023) [facility] History of Past illness Narrative* Problem Noted Date Diagnosed Date Resolved Date H/O sinus tachycardia 05/21/20212021 H/O open hand wound 08/12/2018 01/15/20 Overview: Seeing wound care Pneumonia of both upper lobe s due to infectious organism 08/06/2018 08/06/2018 Encounter for screening for malignant neoplasm of colon 12/22/2016 01/14/2022 Type 2 diabetes mellitus wit h renal manifestations 10/29/2013 11/07/2017 Tobacco abuse 09/07/2012 11/07/2016 Routine general medical exam ination at a health care facility 08/29/2009 11/26/2011 Overview: 08/29/2009, from Wojciech Quintanilla 05/03/2011, yearly check Routine gynecological examination 08/29/2009 11/26/2011 Overview: [facility], [facility] [place] w/o Complication Type II 11/08/2008 02/22/2014 Other abnormal glucose 04/29 Overview: found at [facility], pt was on metformin for a while but taken off - pt never told if she had DM or not A1c 6.5% as of documented as of this encounter (statuses as of 07/17/2023) [facility] History of Past illness Narrative* Problem Noted Date Diagnosed Date Resolved Date H/O sinus tachycardia 05/21/20212021 H/O open hand wound 08/12/2018 01/15/20 22 Overview: Seeing wound care Pneumonia of both upper lobe s due to infectious organism 08/06/2018 08/06/2018 Encounter for screening for malignant neoplasm of colon 12/22/2016 01/14/2022 Type 2 diabetes mellitus wit h renal manifestations 10/29/2013 11/07/2017 Tobacco abuse 09/07/2012 11/07/2016 Routine general medical exam ination at a health care facility 08/29/2009 11/26/2011 Overview: 08/29/2009, from Wojciech Quintanilla 05/03/2011, yearly check Routine gynecological examination 08/29/2009 11/26/2011 Overview: [facility], [facility] DM w/o Complication Type II 11/08/2008 02/22/2014 Other abnormal glucose 04/29 Overview: found at [facility], pt was on metformin for a while but taken off - pt never told if she had DM or not A1c 6.5% as of documented as of this encounter (statuses as of 07/21/2023) [facility] History of Past illness Narrative* Problem Noted Date Diagnosed Date Resolved Date H/O sinus tachycardia 05/21/20212021 H/O open hand wound 08/12/2018 01/15/20 22 Overview: Seeing wound care Pneumonia of both upper lobe s due to infectious organism 08/06/2018 08/06/2018 Encounter for screening for malignant neoplasm of colon 12/22/2016 01/14/2022 Type 2 diabetes mellitus wit h renal manifestations 10/29/2013 11/07/2017 Tobacco abuse 09/07/2012 11/07/2016 Routine general medical exam ination at a health care facility 08/29/2009 11/26/2011 Overview: 08/29/2009, from Wojciech Quintanilla 05/03/2011, yearly check Routine gynecological examination 08/29/2009 11/26/2011 Overview: [facility], [facility] DM w/o Complication Type II 11/08/2008 02/22/2014 Other abnormal glucose 04/29 Overview: found at [facility], pt was on metformin for a while but taken off - pt never told if she had DM or not A1c 6.5% as of documented as of this encounter (statuses as of 08/12/2023) [facility] History of Past illness Narrative* Problem Noted Date Diagnosed Date Resolved Date H/O sinus tachycardia 05/21/20212021 H/O open hand wound 08/12/2018 01/15/20 22 Overview: Seeing wound care Pneumonia of both upper lobe s due to infectious organism 08/06/2018 08/06/2018 Encounter for screening for malignant neoplasm of colon 12/22/2016 01/14/2022 Type 2 diabetes mellitus wit h renal manifestations 10/29/2013 11/07/2017 Tobacco abuse 09/07/2012 11/07/2016 Routine general medical exam ination at a health care facility 08/29/2009 11/26/2011 Overview: 08/29/2009, from Wojciech Quintanilla 05/03/2011, yearly check Routine gynecological examination 08/29/2009 11/26/2011 Overview: [facility], [facility] [place] DM w/o Complication Type II 11/08/2008 02/22/2014 Other abnormal glucose 04/29 Overview: found at [facility], pt was on metformin for a while but taken off - pt never told if she had DM or not A1c 6.5% as of documented as of this encounter (statuses as of 08/16/2023) [facility] History of Past illness Narrative* Problem Noted Date Diagnosed Date Resolved Date H/O sinus tachycardia 05/21/20212021 H/O open hand wound 08/12/2018 01/15/20 22 Overview: Seeing wound care Pneumonia of both upper lobe s due to infectious organism 08/06/2018 08/06/2018 Encounter for screening for malignant neoplasm of colon 12/22/2016 01/14/2022 Type 2 diabetes mellitus wit h renal manifestations 10/29/2013 11/07/2017 Tobacco abuse 09/07/2012 11/07/2016 Routine general medical exam ination at a health care facility 08/29/2009 11/26/2011 Overview: 08/29/2009, from Wojciech Quintanilla 05/03/2011, yearly check Routine gynecological examination 08/29/2009 11/26/2011 Overview: [facility], [facility] [place] DM w/o Complication Type II 11/08/2008 02/22/2014 Other abnormal glucose 04/29 Overview: found at [facility], pt was on metformin for a while but taken off - pt never told if she had DM or not A1c 6.5% as of documented as of this encounter (statuses as of 08/20/2023) [facility] History of Past illness Narrative* Problem Noted Date Diagnosed Date Resolved Date H/O sinus tachycardia 05/21/20212021 H/O open hand wound 08/12/2018 01/15/20 Overview: Seeing wound care Pneumonia of both upper lobe s due to infectious organism 08/06/2018 08/06/2018 Encounter for screening for malignant neoplasm of colon 12/22/2016 01/14/2022 Type 2 diabetes mellitus wit h renal manifestations 10/29/2013 11/07/2017 Tobacco abuse 09/07/2012 11/07/2016 Routine general medical exam ination at a health care facility 08/29/2009 11/26/2011 Overview: 08/29/2009, from Wojicech Quintanilla 05/03/2011, yearly check Routine gynecological examination 08/29/2009 11/26/2011 Overview: [facility], [facility] [place] DM w/o Complication Type II 11/08/2008 02/22/2014 Other abnormal glucose 04/29 Overview: found at [facility], pt was on metformin for a while but taken off - pt never told if she had DM or not A1c 6.5% as of documented as of this encounter (statuses as of 08/21/2023) [facility] History of Past illness Narrative* Problem Noted Date Diagnosed Date Resolved Date H/O sinus tachycardia 05/21/20212021 H/O open hand wound 08/12/2018 01/15/20 22 Overview: Seeing wound care Pneumonia of both upper lobe s due to infectious organism 08/06/2018 08/06/2018 Encounter for screening for malignant neoplasm of colon 12/22/2016 01/14/2022 Type 2 diabetes mellitus wit h renal manifestations 10/29/2013 11/07/2017 Tobacco abuse 09/07/2012 11/07/2016 Routine general medical exam ination at a health care facility 08/29/2009 11/26/2011 Overview: 08/29/2009, from Wojciech Quintanilla 05/03/2011, yearly check Routine gynecological examination 08/29/2009 11/26/2011 Overview: [facility], [facility] [place] DM w/o Complication Type II 11/08/2008 02/22/2014 Other abnormal glucose 04/29 Overview: found at [facility], pt was on metformin for a while but taken off - pt never told if she had DM or not A1c 6.5% as of documented as of this encounter (statuses as of 08/28/2023) [facility] History of Past illness Narrative* Problem Noted Date Diagnosed Date Resolved Date H/O sinus tachycardia 05/21/20212021 H/O open hand wound 08/12/2018 01/15/20 22 Overview: Seeing wound care Pneumonia of both upper lobe s due to infectious organism 08/06/2018 08/06/2018 Encounter for screening for malignant neoplasm of colon 12/22/2016 01/14/2022 Type 2 diabetes mellitus wit h renal manifestations 10/29/2013 11/07/2017 Tobacco abuse 09/07/2012 11/07/2016 Routine general medical exam ination at a health care facility 08/29/2009 11/26/2011 Overview: 08/29/2009, from Wojciech Quintanilla 05/03/2011, yearly check Routine gynecological examination 08/29/2009 11/26/2011 Overview: [facility], [facility] [place] DM w/o Complication Type II 11/08/2008 02/22/2014 Other abnormal glucose 04/29 Overview: found at [facility], pt was on metformin for a while but taken off - pt never told if she had DM or not A1c 6.5% as of documented as of this encounter (statuses as of 08/29/2023) [facility] History of Past illness Narrative* Problem Noted Date Diagnosed Date Resolved Date H/O sinus tachycardia 05/21/20212021 H/O open hand wound 08/12/2018 01/15/20 Overview: Seeing wound care Pneumonia of both upper lobe s due to infectious organism 08/06/2018 08/06/2018 Encounter for screening for malignant neoplasm of colon 12/22/2016 01/14/2022 Type 2 diabetes mellitus wit h renal manifestations 10/29/2013 11/07/2017 Tobacco abuse 09/07/2012 11/07/2016 Routine general medical exam ination at a health care facility 08/29/2009 11/26/2011 Overview: 08/29/2009, from Wojciech Quintanilla 05/03/2011, yearly check Routine gynecological examination 08/29/2009 11/26/2011 Overview: [facility], [facility] [place] DM w/o Complication Type II 11/08/2008 02/22/2014 Other abnormal glucose 04/29 Overview: found at [facility], pt was on metformin for a while but taken off - pt never told if she had DM or not A1c 6.5% as of documented as of this encounter (statuses as of 09/01/2023) [facility] History of Past illness Narrative* Problem Noted Date Diagnosed Date Resolved Date H/O sinus tachycardia 05/21/20212021 H/O open hand wound 08/12/2018 01/15/20 22 Overview: Seeing wound care Pneumonia of both upper lobe s due to infectious organism 08/06/2018 08/06/2018 Encounter for screening for malignant neoplasm of colon 12/22/2016 01/14/2022 Type 2 diabetes mellitus wit h renal manifestations 10/29/2013 11/07/2017 Tobacco abuse 09/07/2012 11/07/2016 Routine general medical exam ination at a health care facility 08/29/2009 11/26/2011 Overview: 08/29/2009, from Wojciech Quintanilla 05/03/2011, yearly check Routine gynecological examination 08/29/2009 11/26/2011 Overview: [facility], [facility] [place] DM w/o Complication Type II 11/08/2008 02/22/2014 Other abnormal glucose 04/29 Overview: found at [facility], pt was on metformin for a while but taken off - pt never told if she had DM or not A1c 6.5% as of documented as of this encounter (statuses as of 09/10/2023) [facility] History of Past illness Narrative* Problem Noted Date Diagnosed Date Resolved Date H/O sinus tachycardia 05/21/20212021 H/O open hand wound 08/12/2018 01/15/20 22 Overview: Seeing wound care Pneumonia of both upper lobe s due to infectious organism 08/06/2018 08/06/2018 Encounter for screening for malignant neoplasm of colon 12/22/2016 01/14/2022 Type 2 diabetes mellitus wit h renal manifestations 10/29/2013 11/07/2017 Tobacco abuse 09/07/2012 11/07/2016 Routine general medical exam ination at a health care facility 08/29/2009 11/26/2011 Overview: 08/29/2009, from Wojciech Quintanilla 05/03/2011, yearly check Routine gynecological examination 08/29/2009 11/26/2011 Overview: [facility], [facility] [place] DM w/o Complication Type II 11/08/2008 02/22/2014 Other abnormal glucose 04/29 Overview: found at [facility], pt was on metformin for a while but taken off - pt never told if she had DM or not A1c 6.5% as of documented as of this encounter (statuses as of 09/10/2023) [facility] History of Past illness Narrative* Problem Noted Date Diagnosed Date Resolved Date H/O sinus tachycardia 05/21/20212021 H/O open hand wound 08/12/2018 01/15/20 Overview: Seeing wound care Pneumonia of both upper lobe s due to infectious organism 08/06/2018 08/06/2018 Encounter for screening for malignant neoplasm of colon 12/22/2016 01/14/2022 Type 2 diabetes mellitus wit h renal manifestations 10/29/2013 11/07/2017 Tobacco abuse 09/07/2012 11/07/2016 Routine general medical exam ination at a health care facility 08/29/2009 11/26/2011 Overview: 08/29/2009, from Wojciech Quintanilla 05/03/2011, yearly check Routine gynecological examination 08/29/2009 11/26/2011 Overview: [facility], [facility] [place] DM w/o Complication Type II 11/08/2008 02/22/2014 Other abnormal glucose 04/29 Overview: found at [facility], pt was on metformin for a while but taken off - pt never told if she had DM or not A1c 6.5% as of documented as of this encounter (statuses as of 09/23/2023) [facility] History of Past illness Narrative* Problem Noted Date Resolved Date Pneumonia of both upper lobes due to infectious organism 08/06/2018 08/06/2018 Type 2 diabetes mellitus with renal manifestatio ns 10/29/2013 11/07/2017 Tobacco abuse 09/07/2012 11/07/2016 Routine general medical exam ination at a health care facility 08/29/2009 11/26/2011 Overview: 08/29/2009, from Wojciech Quintanilla 05/03/2011, yearly check Routine gynecological examination 08/29/2009 11/26/2011 Overview: [facility], [facility] [place] DM w/o Complication Type II 11/08/200802/10 Other abnormal glucose 8 Overview: found at [facility], pt was on metformin for a while but taken off - pt never told if she had DM or not A1c 6.5% as of documented as of this encounter (statuses as of 01/11/2022) [facility] History of Past illness Narrative* Problem Noted Date Resolved Date Pneumonia of both upper lobes due to infectious organism 08/06/2018 08/06/2018 Type 2 diabetes mellitus with renal manifestatio ns 10/29/2013 11/07/2017 Tobacco abuse 09/07/2012 11/07/2016 Routine general medical exam ination at a health care facility 08/29/2009 11/26/2011 Overview: 08/29/2009, from Wojciech Quintanilla 05/03/2011, yearly check Routine gynecological examination 08/29/2009 11/26/2011 Overview: [facility], [facility] [place] w/o Complication Type II 11/08/200802/10 Other abnormal glucose 8 Overview: found at [facility], pt was on metformin for a while but taken off - pt never told if she had DM or not A1c 6.5% as of documented as of this encounter (statuses as of 01/14/2022) [facility] note* Diagnosis Chronic constipation Unspecified constipation documented in this encounter [facility] note* Diagnosis Chronic idiopathic constipation Unspecified constipation Iron deficiency anemia, unspecified iron deficiency anemia type documented in this encounter [facility]* Diagnosis Tachycardia- Primary Tachycardia, unspecified SVT (supraventricular tachycardia) ([facility]) Other specified cardiac dysrhythmias Acute diastolic CHF (congestive heart failure) ([facility]) Acute diastolic heart failure Chronic obstructive pulmonary disease, unspecified COPD type ([facility]) LIDA (obstructive sleep apnea) Obstructive sleep apnea (adult) (pediatric) Water intoxication Other fluid overload Type 2 diabetes mellitus with diabetic nephropathy, with long-term current use of insulin ([facility]) Schizophreniform disorder, chronic condition ([facility]) Schizophreniform disorder, chronic condition Vitamin D deficiency Unspecified vitamin D deficiency Advance care planning Other specified counseling documented in this encounter [facility] note* Diagnosis Right hip pain- Primary Pain in joint, pelvic region and thigh documented in this encounter [facility]* Diagnosis Skin irritation- Primary Unspecified disorder of skin and subcutaneous tissue Rosacea documented in this encounter [facility]* Diagnosis Chronic constipation Unspecified constipation documented in this encounter [facility]* Diagnosis Restless leg syndrome Restless legs syndrome (RLS) [facility] Diagnosis Injury of toenail of right foot, initial encounter- Primary documented in this encounter [facility] note* Diagnosis Conjunctivitis of left eye, unspecified conjunctivitis type- Primary Facial infection Other specified infectious and parasitic diseases documented in this encounter [facility] note* Diagnosis Encounter for screening mammogram for breast cancer documented in this encounter [facility]* Diagnosis GERD without esophagitis Esophageal reflux Epigastric pain Abdominal pain, epigastric documented in this encounter [facility]* Diagnosis Type 2 diabetes mellitus with diabetic nephropathy, with long-term current use of insulin ([facility])- Primary Schizophreniform disorder, chronic condition ([facility]) Schizophreniform disorder, chronic condition Hyperlipidemia, unspecified hyperlipidemia type LIDA (obstructive sleep apnea) Obstructive sleep apnea (adult) (pediatric) Rosacea Upper back pain Gassiness Flatulence, eructation, and gas pain [facility] Diagnosis Hyperlipidemia, unspecified hyperlipidemia type documented in this encounter [facility] note* Diagnosis Type 2 diabetes mellitus with diabetic nephropathy, with long-term current use of insulin (HCC) documented in this encounter [facility] note* Diagnosis GERD without esophagitis Esophageal reflux Epigastric pain Abdominal pain, epigastric documented in this encounter [facility] note* Diagnosis COVID-19 documented in this encounter [facility] note* Diagnosis Chest pain, unspecified type- Primary Weight loss Loss of weight Type 2 diabetes mellitus with diabetic nephropathy, with long-term current use of insulin (HCC) Hyperlipidemia, unspecified hyperlipidemia type GERD without esophagitis Esophageal reflux Acute diastolic CHF (congestive heart failure) (HCC) Acute diastolic heart failure Schizophreniform disorder, chronic condition (HCC) Schizophreniform disorder, chronic condition Fatigue, unspecified type documented in this encounter [facility] note* Diagnosis Tachycardia- Primary Tachycardia, unspecified documented in this encounter [facility] note* Diagnosis Restless leg syndrome Restless legs syndrome (RLS) documented in this encounter [facility] note* Diagnosis Encounter for screening mammogram for breast cancer documented in this encounter [facility] note* Diagnosis Hyperlipidemia, unspecified hyperlipidemia type documented in this encounter [facility] note* Diagnosis Type 2 diabetes mellitus with diabetic nephropathy, with long-term current use of insulin (HCC) documented in this encounter [facility] note* Diagnosis Itching in the vaginal area- Primary Pruritus of genital organs documented in this encounter [facility] note* Diagnosis Type 2 diabetes mellitus with diabetic nephropathy, with long-term current use of insulin (HCC)- Primary documented in this encounter [facility] note* Diagnosis Primary hypertension- Primary Unspecified essential hypertension Pure hypercholesterolemia SVT (supraventricular tachycardia) Other specified cardiac dysrhythmias documented in this encounter [facility] for referral (narrative)* Diagnostic Procedure Only (Routine) - Pending Review Specialty Diagnoses / Procedures Referred By Jenny cotter Referred To Contact [facility] Diagnoses Encounter for screening mammogram for breast cancer Procedures FRANNY SCREENING SCREENING MAMMOGRAPHY BI 2-VIEW BREAST INC Boris Torres MD [address] [place] [address] [facility] [address] [place] [address] Referral ID Status Reason Start Date Expiration Date Visits Requested Visits Authorized [id number] Pending Review Auto-Generat ed Referral 09/06/2023 1 1 [facility] for referral (narrative)* Diagnostic Procedure Only (Routine) - Pending Review Specialty Diagnoses / Procedures Referred By Contac t Referred To Contact [facility] Diagnoses Chest pain, unspecified type Procedures NM CARDIAC PERF STRESS/PHARM MYOCARDIAL SPECT MULTIPLE STUDIES Radha Batista APRN.MANUFACTURING SPECIALIST [address] [place] [address] [facility] [address] [place] [address] Referral ID Status Reason Start Date Expiration Date Visits Requested Visits Authorized [id number] Pending Review Auto-Generat ed Referral 04/29/2023 05/28/2024 1 1 * Outpatient Procedure (Routine) - Closed Specialty Diagnoses / Procedures Referred By Contac t Referred To Contact [facility] Diagnoses Chest pain, unspecified type Procedures ECG COMPLETE ECG ROUTINE ECG W/LEAST 12 LDS W/I&R Radha Batista APRN.MANUFACTURING SPECIALIST [address] [place] [address] [facility] [address] [place] [address] Referral ID Status Reason Start Date Expiration Date V isits Requested Visits Authorized [id number] Closed Auto-Generate d Referral 04/29/2023 04/28/2024 1 1 [facility] for referral (narrative)* Diagnostic Procedure Only (Routine) - Pending Review Specialty Diagnoses / Procedures Referred By Contac t Referred To Contact [facility] Diagnoses Encounter for screening mammogram for breast cancer Procedures FRANNY SCREENING SCREENING MAMMOGRAPHY BI 2-VIEW BREAST INC CAD Boris Vance MD [address] [place] [address] [facility] [address] [place] [address] Referral ID Status Reason Start Date Expiration Date Visits Requested Visits Authorized [id number] Pending Review Auto-Generat ed Referral 07/16/2023 08/14/2024 1 1 [facility] for visit Narrative* Diagnostic Procedure Only (Routine) - Closed Specialty Diagnoses / Procedures Referred By Jenny cotter Referred To Contact [facility] Diagnoses Chest pain, unspecified type Procedures NM CARDIAC PERF STRESS/PHARM MYOCARDIAL SPECT MULTIPLE STUDIES Radha Batista, CHIEF COOK.MANUFACTURING SPECIALIST [address] [place] [address] [facility] [address] [place] [address] Referral ID Status Reason Start Date Expiration Date V isits Requested Visits Authorized [id number] Closed Auto-Generate d Referral 05/15/2023 10/12/2023 3 1 [facility] Summary Purpose Family History No Family History Records FoundNo Family History Records FoundNo Family History Records Found Advance Directives No Advanced Directives Records FoundDocuments on File Type Date Recorded 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 Advance Directive(s) 12/04/2016 3:21 PM Advance Directive(s) 01/11/2009 10:19 PM Advance Directive(s) 12/06/2008 4:00 PM Documents on File Type Date Recorded 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 Advance Directive(s) 01/11/2009 10:19 PM Advance Directive(s) 12/06/2008 4:00 PM Documents on File Type Date Recorded 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 Advance Directive(s) 01/11/2009 10:19 PM Advance Directive(s) 12/06/2008 4:00 PM Reason for Referral Specialty Diagnoses / Procedures Referred By Jenny cotter Referred To Contact Podiatry Diagnoses Injury of toenail of right foot, initial encounter Procedures CONSULT TO PODIATRY OFFICE/OUTPATIENT NEW HIGH MDM 60-74 MINUTES Zaira García, CHIEF COOK.MANUFACTURING SPECIALIST [address] [place] [address] Referral ID Status Reason Start Date Expiration Date Visits Requested Visits Authorized [id number] Authorized PCP Requested Referral 07/05/2022 07/05/2023 1 1 Additional Source Comments INFORMATION SOURCE (unrecogn ized section and content) DATE CREATED AUTHOR AUTHOR'S ORGANIZ ATION 07/21/2021 [facility] DATE CREATED AUTHOR AUTHOR'S ORGANIZ ATION 09/24/2023 [facility] Source Comments (unrecognize d section and content) In the event this informatio n is protected by the Federal Confidentiality of Alcohol and Drug Abuse Patient Records regulations: The Federal rules restrict any use of the information to criminally investigate or prosecute any alcohol or drug abuse patient.[facility] the event this information is protected by the Federal Confidentiality of Alcohol and Drug Abuse Patient Records regulations: The Federal rules restrict any use of the information to criminally investigate or prosecute any alcohol or drug abuse patient.[facility] HospitalIn the event this information is protected by the Federal Confidentiality of Alcohol and Drug Abuse Patient Records regulations: The Federal rules restrict any use of the information to criminally investigate or prosecute any alcohol or drug abuse patient.[facility] Hospital[facility] the event this information is protected by the Federal Confidentiality of Alcohol and Drug Abuse Patient Records regulations: The Federal rules restrict any use of the information to criminally investigate or prosecute any alcohol or drug abuse patient.[facility] Hospital[facility] the event this information is protected by the Federal Confidentiality of Alcohol and Drug Abuse Patient Records regulations: The Federal rules restrict any use of the information to criminally investigate or prosecute any alcohol or drug abuse patient.[facility] HospitalIn the event this information is protected by the Federal Confidentiality of Alcohol and Drug Abuse Patient Records regulations: The Federal rules restrict any use of the information to criminally investigate or prosecute any alcohol or drug abuse patient.[facility] Hospital[facility] the event this information is protected by the Federal Confidentiality of Alcohol and Drug Abuse Patient Records regulations: The Federal rules restrict any use of the information to criminally investigate or prosecute any alcohol or drug abuse patient.[facility] HospitalIn the event this information is protected by the Federal Confidentiality of Alcohol and Drug Abuse Patient Records regulations: The Federal rules restrict any use of the information to criminally investigate or prosecute any alcohol or drug abuse patient.[facility] HospitalIn the event this information is protected by the Federal Confidentiality of Alcohol and Drug Abuse Patient Records regulations: The Federal rules restrict any use of the information to criminally investigate or prosecute any alcohol or drug abuse patient.[facility] HospitalIn the event this information is protected by the Federal Confidentiality of Alcohol and Drug Abuse Patient Records regulations: The Federal rules restrict any use of the information to criminally investigate or prosecute any alcohol or drug abuse patient.[facility] HospitalIn the event this information is protected by the Federal Confidentiality of Alcohol and Drug Abuse Patient Records regulations: The Federal rules restrict any use of the information to criminally investigate or prosecute any alcohol or drug abuse patient.[facility] HospitalIn the event this information is protected by the Federal Confidentiality of Alcohol and Drug Abuse Patient Records regulations: The Federal rules restrict any use of the information to criminally investigate or prosecute any alcohol or drug abuse patient.[facility] HospitalIn the event this information is protected by the Federal Confidentiality of Alcohol and Drug Abuse Patient Records regulations: The Federal rules restrict any use of the information to criminally investigate or prosecute any alcohol or drug abuse patient.[facility] HospitalIn the event this information is protected by the Federal Confidentiality of Alcohol and Drug Abuse Patient Records regulations: The Federal rules restrict any use of the information to criminally investigate or prosecute any alcohol or drug abuse patient.[facility] HospitalIn the event this information is protected by the Federal Confidentiality of Alcohol and Drug Abuse Patient Records regulations: The Federal rules restrict any use of the information to criminally investigate or prosecute any alcohol or drug abuse patient.[facility] HospitalIn the event this information is protected by the Federal Confidentiality of Alcohol and Drug Abuse Patient Records regulations: The Federal rules restrict any use of the information to criminally investigate or prosecute any alcohol or drug abuse patient.[facility] HospitalIn the event this information is protected by the Federal Confidentiality of Alcohol and Drug Abuse Patient Records regulations: The Federal rules restrict any use of the information to criminally investigate or prosecute any alcohol or drug abuse patient.[facility] HospitalIn the event this information is protected by the Federal Confidentiality of Alcohol and Drug Abuse Patient Records regulations: The Federal rules restrict any use of the information to criminally investigate or prosecute any alcohol or drug abuse patient.[facility] HospitalIn the event this information is protected by the Federal Confidentiality of Alcohol and Drug Abuse Patient Records regulations: The Federal rules restrict any use of the information to criminally investigate or prosecute any alcohol or drug abuse patient.[facility] HospitalIn the event this information is protected by the Federal Confidentiality of Alcohol and Drug Abuse Patient Records regulations: The Federal rules restrict any use of the information to criminally investigate or prosecute any alcohol or drug abuse patient.[facility] HospitalIn the event this information is protected by the Federal Confidentiality of Alcohol and Drug Abuse Patient Records regulations: The Federal rules restrict any use of the information to criminally investigate or prosecute any alcohol or drug abuse patient.[facility] HospitalIn the event this information is protected by the Federal Confidentiality of Alcohol and Drug Abuse Patient Records regulations: The Federal rules restrict any use of the information to criminally investigate or prosecute any alcohol or drug abuse patient.[facility] HospitalIn the event this information is protected by the Federal Confidentiality of Alcohol and Drug Abuse Patient Records regulations: The Federal rules restrict any use of the information to criminally investigate or prosecute any alcohol or drug abuse patient.[facility] HospitalIn the event this information is protected by the Federal Confidentiality of Alcohol and Drug Abuse Patient Records regulations: The Federal rules restrict any use of the information to criminally investigate or prosecute any alcohol or drug abuse patient.[facility] HospitalIn the event this information is protected by the Federal Confidentiality of Alcohol and Drug Abuse Patient Records regulations: The Federal rules restrict any use of the information to criminally investigate or prosecute any alcohol or drug abuse patient.[facility] HospitalIn the event this information is protected by the Federal Confidentiality of Alcohol and Drug Abuse Patient Records regulations: The Federal rules restrict any use of the information to criminally investigate or prosecute any alcohol or drug abuse patient.[facility] HospitalIn the event this information is protected by the Federal Confidentiality of Alcohol and Drug Abuse Patient Records regulations: The Federal rules restrict any use of the information to criminally investigate or prosecute any alcohol or drug abuse patient.[facility] HospitalIn the event this information is protected by the Federal Confidentiality of Alcohol and Drug Abuse Patient Records regulations: The Federal rules restrict any use of the information to criminally investigate or prosecute any alcohol or drug abuse patient.[facility] HospitalIn the event this information is protected by the Federal Confidentiality of Alcohol and Drug Abuse Patient Records regulations: The Federal rules restrict any use of the information to criminally investigate or prosecute any alcohol or drug abuse patient.[facility] HospitalIn the event this information is protected by the Federal Confidentiality of Alcohol and Drug Abuse Patient Records regulations: The Federal rules restrict any use of the information to criminally investigate or prosecute any alcohol or drug abuse patient.[facility] HospitalIn the event this information is protected by the Federal Confidentiality of Alcohol and Drug Abuse Patient Records regulations: The Federal rules restrict any use of the information to criminally investigate or prosecute any alcohol or drug abuse patient.[facility] HospitalIn the event this information is protected by the Federal Confidentiality of Alcohol and Drug Abuse Patient Records regulations: The Federal rules restrict any use of the information to criminally investigate or prosecute any alcohol or drug abuse patient.[facility] HospitalIn the event this information is protected by the Federal Confidentiality of Alcohol and Drug Abuse Patient Records regulations: The Federal rules restrict any use of the information to criminally investigate or prosecute any alcohol or drug abuse patient.[facility] HospitalIn the event this information is protected by the Federal Confidentiality of Alcohol and Drug Abuse Patient Records regulations: The Federal rules restrict any use of the information to criminally investigate or prosecute any alcohol or drug abuse patient.[facility] HospitalIn the event this information is protected by the Federal Confidentiality of Alcohol and Drug Abuse Patient Records regulations: The Federal rules restrict any use of the information to criminally investigate or prosecute any alcohol or drug abuse patient.[facility] HospitalIn the event this information is protected by the Federal Confidentiality of Alcohol and Drug Abuse Patient Records regulations: The Federal rules restrict any use of the information to criminally investigate or prosecute any alcohol or drug abuse patient.[facility] HospitalIn the event this information is protected by the Federal Confidentiality of Alcohol and Drug Abuse Patient Records regulations: The Federal rules restrict any use of the information to criminally investigate or prosecute any alcohol or drug abuse patient.[facility] HospitalIn the event this information is protected by the Federal Confidentiality of Alcohol and Drug Abuse Patient Records regulations: The Federal rules restrict any use of the information to criminally investigate or prosecute any alcohol or drug abuse patient.[facility] HospitalIn the event this information is protected by the Federal Confidentiality of Alcohol and Drug Abuse Patient Records regulations: The Federal rules restrict any use of the information to criminally investigate or prosecute any alcohol or drug abuse patient.[facility] HospitalIn the event this information is protected by the Federal Confidentiality of Alcohol and Drug Abuse Patient Records regulations: The Federal rules restrict any use of the information to criminally investigate or prosecute any alcohol or drug abuse patient.[facility] HospitalIn the event this information is protected by the Federal Confidentiality of Alcohol and Drug Abuse Patient Records regulations: The Federal rules restrict any use of the information to criminally investigate or prosecute any alcohol or drug abuse patient.[facility] HospitalIn the event this information is protected by the Federal Confidentiality of Alcohol and Drug Abuse Patient Records regulations: The Federal rules restrict any use of the information to criminally investigate or prosecute any alcohol or drug abuse patient.[facility] HospitalIn the event this information is protected by the Federal Confidentiality of Alcohol and Drug Abuse Patient Records regulations: The Federal rules restrict any use of the information to criminally investigate or prosecute any alcohol or drug abuse patient.[facility] HospitalIn the event this information is protected by the Federal Confidentiality of Alcohol and Drug Abuse Patient Records regulations: The Federal rules restrict any use of the information to criminally investigate or prosecute any alcohol or drug abuse patient.[facility] HospitalIn the event this information is protected by the Federal Confidentiality of Alcohol and Drug Abuse Patient Records regulations: The Federal rules restrict any use of the information to criminally investigate or prosecute any alcohol or drug abuse patient.[facility] Reason for Visit (unrecogniz ed section and content) Reason Onset Date Comments Refill Request 01/14/2022 Reason Comments 6 Month Exam Reason Comments Medication Request Reason Comments Right Hip Pain x 2 weeks Reason Comments Rash facial rash where th e cpap masks sits on face Reason Onset Date Comments Refill Request 03/27/2022 Reason Onset Date Comments Refill Request 05/02/2022 Reason Comments Patient Question Reason Onset Date Comments Refill Request 05/08/2022 Reason Onset Date Comments Refill Request 06/20/2022 Reason Comments Pain (foot) (RT) toe pain rated 1, x1 day. Reason Comments Eye Problem Pt reported (LT) eye discharge, swelling x1 day, visual screening with glasses 20/40. Reason Onset Date Comments Refill Request 08/15/2022 Reason Comments Refill Request Reason Onset Date Comments Refill Request 08/19/2022 Reason Comments Recheck 6 month follow up Reason Onset Date Comments Refill Request 08/30/2022 Reason Onset Date Comments Refill Request 09/11/2022 Reason Onset Date Comments Refill Request 10/04/2022 Reason Onset Date Comments Refill Request 10/08/2022 Reason Onset Date Comments Refill Request 12/09/2022 Reason Onset Date Comments Refill Request 01/30/2023 Reason Onset Date Comments Refill Request 02/14/2023 Reason Onset Date Comments Refill Request 02/26/2023 Reason Comments 6 Month Exam Reason Comments Results Reason Onset Date Comments Refill Request 05/23/2023 Reason Onset Date Comments Refill Request 05/27/2023 Reason Onset Date Comments Refill Request 06/18/2023 Reason Onset Date Comments Refill Request 08/12/2023 Reason Comments Radiology NM Specialty Diagnoses / Procedures Referred By Jenny t Referred To Contact [facility] IMAGING Diagnoses Chest pain, unspecified type Procedures NM CARDIAC PERF STRESS/PHARM MYOCARDIAL SPECT MULTIPLE STUDIES Radha Batista, CHIEF COOK.MANUFACTURING SPECIALIST [address] [place] [address] [facility] [address] [place] [address] Referral ID Status Reason Start Date Expiration Date V isits Requested Visits Authorized [id number] Closed Auto-Generate d Referral 05/15/2023 10/12/2023 3 1 Reason Comments Elevated Blood Sugar Reason Onset Date Comments Refill Request 08/20/2023 Medication Problem Reason Onset Date Comments Refill Request 08/28/2023 Reason Comments Vaginal Problem Reason Onset Date Comments Refill Request 09/10/2023 Reason Comments Medication Problem Test strips and lanc ets Reason Comments Established Patient Follow-Up Care Teams (unrecognized sec tion and content) Green End Worker Relationship Specialty Start Date End Date Boris Vance MD [address] [facility] [place] [address] PCP - General Family Practice 12/26/14 Koby Ramirez V [address] [place] [address] Internal Medicine 07/22/18 Haylee Mars Other 05/30/14 Penitentiary 12/18/17 [facility] 10/25/19 Green End Worker Relationship Specialty Start Date End Date Boris Vance MD [address] [facility] [place] [address] PCP - General Family Practice 12/26/14 Koby Ramirez V [address] [place] [address] Internal Medicine 07/22/18 Haylee Mars Other 05/30/14 Penitentiary 12/18/17 [facility] 10/25/19 Green End Worker Relationship Specialty Start Date End Date Boris Vance MD [address] [facility] [place] [address] PCP - General Family Practice 12/26/14 Koby Ramirez V [address] [place] [address] Internal Medicine 07/22/18 Haylee Mars Other 05/30/14 Penitentiary 12/18/17 [facility] 10/25/19 Green End Worker Relationship Specialty Start Date End Date Boris Vance MD [address] [facility] [place] [address] PCP - General Family Practice 12/26/14 Koby Ramirez V [address] [place] [address] Internal Medicine 07/22/18 Haylee Mars Other 05/30/14 Penitentiary 12/18/17 [facility] 10/25/19 Green End Worker Relationship Specialty Start Date End Date Boris Vance MD [address] [facility] [place] [address] PCP - General Family Practice 12/26/14 Koby Ramirez V [address] [place] [address] Internal Medicine 07/22/18 Haylee Mars Other 05/30/14 Penitentiary 12/18/17 [facility] 10/25/19 Green End Worker Relationship Specialty Start Date End Date Boris Vance MD [address] [facility] [address] PCP - General Family Practice 12/26/14 Koby Ramirez V [address] [place] [id number] Internal Medicine 07/22/18 Haylee Mars Other 05/30/14 Penitentiary 12/18/17 [facility] DME 10/25/19 Green End Worker Relationship Specialty Start Date End Date Boris Vance MD [address] [place] [address] PCP - General Family Medicine 12/26/14 Koby Ramirez V [address] [place] [address] Internal Medicine 07/22/18 Haylee Mars Other 05/30/14 Penitentiary 12/18/17 corner stone DME 10/25/19 Green End Worker Relationship Specialty Start Date End Date Boris Vance MD [address] [place] [address] PCP - General Family Medicine 12/26/14 Koby Ramirez V [address] [place] [phone] Internal Medicine 07/22/18 Haylee Mars Other 05/30/14 Penitentiary 12/18/17 clark marr DME 10/25/19 Green End Worker Relationship Specialty Start Date End Date Boris Vance MD [address] [place] [address] PCP - General Family Medicine 12/26/14 Koby Ramirez V [address] [place] [address] Internal Medicine 07/22/18 Haylee Mars Other 05/30/14 Penitentiary 12/18/17 clark marr DME 10/25/19 Green End Worker Relationship Specialty Start Date End Date Boris Vance MD [address] [place] [address] PCP - General Family Medicine 12/26/14 Koby Ramirez, Noel [address] [place] [address] Internal Medicine 07/22/18 Haylee Mars Other 05/30/14 Penitentiary 12/18/17 corner stone DME 10/25/19 Green End Worker Relationship Specialty Start Date End Date Boris Vance MD [address] [place] [address] PCP - General Family Medicine 12/26/14 Koby Ramirez V [address] [place] [address] Internal Medicine 07/22/18 Haylee Mars Other 05/30/14 Penitentiary 12/18/17 clark marr DME 10/25/19 Green End Worker Relationship Specialty Start Date End Date Boris Vance MD [address] [facility] [place] [place] [address] PCP - General Family Medicine 12/26/14 Koby Ramirez V [address] [facility] [place] [address] Internal Medicine 07/22/18 Haylee Mars Other 05/30/14 Penitentiary 12/18/17 clark marr DME 10/25/19 Green End Worker Relationship Specialty Start Date End Date Boris Vance MD [address] [facility] [place] [place] [address] PCP - General Family Medicine 12/26/14 Koby Ramirez V [address] [place] [phone] Internal Medicine 07/22/18 Haylee Mars Other 05/30/14 Penitentiary 12/18/17 corner stone DME 10/25/19 Green End Worker Relationship Specialty Start Date End Date Boris Vance MD [address] [facility] [place] [address] PCP - General Family Medicine 12/26/14 Koby Ramirez V [address] [place] [phone] Internal Medicine 07/22/18 Haylee Mars Other 05/30/14 Penitentiary 12/18/17 corner stone DME 10/25/19 Green End Worker Relationship Specialty Start Date End Date Boris Vance MD [address] [place] [address] PCP - General Family Medicine 12/26/14 Koby Ramirez V [address] [phone] Internal Medicine 07/22/18 Haylee Mars Other 05/30/14 Penitentiary 12/18/17 corner stone DME 10/25/19 Green End Worker Relationship Specialty Start Date End Date Boris Vance MD [address] [place] [address] PCP - General Family Medicine 12/26/14 Koby Ramirez V [address] [place] [address] Internal Medicine 07/22/18 Haylee Rodriguezi Other 05/30/14 Penitentiary 12/18/17 corner stone DME 10/25/19 Green End Worker Relationship Specialty Start Date End Date Boris Vance MD [address] [facility] [place] [address] PCP - General Family Medicine 12/26/14 Koby Ramirez V [address] [place] [phone] Internal Medicine 07/22/18 Haylee Mars Other 05/30/14 Penitentiary 12/18/17 clark marr DME 10/25/19 Green End Worker Relationship Specialty Start Date End Date Boris Vance MD [address] [place] [address] PCP - General Family Medicine 12/26/14 Koby Ramirez V [address] [place] [phone] Internal Medicine 07/22/18 Haylee Mars Other 05/30/14 Penitentiary 12/18/17 clark marr DME 10/25/19 Green End Worker Relationship Specialty Start Date End Date Boris Vance MD [address] [place] [address] PCP - General Family Medicine 12/26/14 Koby Ramirez V [address] [place] [address] Internal Medicine 07/22/18 Haylee Mars Other 05/30/14 Penitentiary 12/18/17 corner stone DME 10/25/19 Green End Worker Relationship Specialty Start Date End Date Boris Vance MD [address] [facility] [place] [address] PCP - General Family Medicine 12/26/14 Koby Ramirez V [address] [place] [address] Internal Medicine 07/22/18 Haylee Mars Other 05/30/14 Penitentiary 12/18/17 corner stone DME 10/25/19 Green End Worker Relationship Specialty Start Date End Date Boris Vance MD [address] [facility] [place] [address] PCP - General Family Medicine 12/26/14 Koby Ramirez V [address] [place] [address] Internal Medicine 07/22/18 Haylee Mars Other 05/30/14 Penitentiary 12/18/17 corner stone DME 10/25/19 Green End Worker Relationship Specialty Start Date End Date Boris Vance MD [address] [place] [address] PCP - General Family Medicine 12/26/14 Koby Ramirez V [address] [place] [phone] Internal Medicine 07/22/18 Haylee Mars Other 05/30/14 Penitentiary 12/18/17 corner stone DME 10/25/19 Green End Worker Relationship Specialty Start Date End Date Boris Vance MD [address] [place], [place] [id number] PCP - General Family Medicine 12/26/14 Koby Ramirez V [address] [place] [phone] Internal Medicine 07/22/18 Haylee Mars Other 05/30/14 Penitentiary 12/18/17 corner stone DME 10/25/19 Green End Worker Relationship Specialty Start Date End Date Boris Vance MD [address] [place] [address] PCP - General Family Medicine 12/26/14 Koby Ramirez V [address] [place] [phone] Internal Medicine 07/22/18 Haylee Mars Other 05/30/14 Penitentiary 12/18/17 corner stone DME 10/25/19 Green End Worker Relationship Specialty Start Date End Date Boris Vance MD [address] [place] [address] PCP - General Family Medicine 12/26/14 Koby Ramirez V [address] [place] [address] Internal Medicine 07/22/18 Haylee Mars Other 05/30/14 Penitentiary 12/18/17 corner stone DME 10/25/19 Green End Worker Relationship Specialty Start Date End Date Boris Vance MD [address] [place] [address] PCP - General Family Medicine 12/26/14 Koby Ramirez V [address] [place] [phone] Internal Medicine 07/22/18 Haylee Mars Other 05/30/14 Penitentiary 12/18/17 corner stone DME 10/25/19 Green End Worker Relationship Specialty Start Date End Date Boris Vance MD [address] [place] [address] PCP - General Family Medicine 12/26/14 Koby Ramirez V [address] [place] [phone] Internal Medicine 07/22/18 Haylee Mars Other 05/30/14 Penitentiary 12/18/17 corner stone DME 10/25/19 Green End Worker Relationship Specialty Start Date End Date Boris Vance MD [address] [facility] [place] [address] PCP - General Family Medicine 12/26/14 Koby Ramirez V [address] [phone] Internal Medicine 07/22/18 Haylee Mars Other 05/30/14 Penitentiary 12/18/17 clark marr DME 10/25/19 Green End Worker Relationship Specialty Start Date End Date Boris Vance MD [address] [facility] [place] [address] PCP - General Family Medicine 12/26/14 Koby Ramirez V [address] [place] [phone] Internal Medicine 07/22/18 Haylee Mars Other 05/30/14 Penitentiary 12/18/17 clark marr DME 10/25/19 FOR RECORDS PERTAINING TO PATIENTS WHO ARE OR HAVE BEEN ENROLLED IN A CHEMICAL DEPENDENCY/SUBSTANCEABUSE PROGRAM, SOME INFORMATION MAY BE OMITTED. This clinical summary was aggregated from multiple sources. Caution should be exercised in using it in the provision of clinical care. This summary normalizes information from multiple sources, and as a consequence, information in this document may materially change the coding, format and clinical context of patient data. In addition, data may be omitted in some cases. CLINICAL DECISIONS SHOULD BE BASED ON THE PRIMARY CLINICAL RECORDS. [facility] [employer] [facility]. provides no warranty or guarantee of the accuracy or completeness of information in this document.
== END | disposition home or self-care (01) ==
PROVIDERS: PCP Family Medicine; Referring Provider Internal Medicine Pulmonary Disease; Visit Provider Internal Medicine Pulmonary Disease
DX: R05.9 Cough, unspecified (principal)
CPT/HCPCS: 71046

== ENCOUNTER 2023-11-19 09:36 | Outpatient (RCR) | payer MEDICARE, MEDICAID, SELFPAY ==
[2023-11-12 22:38] VITALS: BMI 36.6
[2023-11-19 10:43] LABS: Absolute Lymphocyte Count 2.19 X10^3/uL (0.83-4.51); Absolute Neutrophil Count 6.6 X10^3/uL (2.0-7.7); Basophil# 0.05 X10^3/uL; Basophil% 0.5 % (0-1); Eosinophil# 0.01 X10^3/uL; Eosinophils% 0.1 % (0-5); Hematocrit 46.2 % (37-47); Hemoglobin 14.6 g/dL (12.0-15.0); Lymphocyte # 2.19 X10^3/ul (0.83-4.51); Lymphocyte % 23.3 % (19-41); Mean Corp Hgb Conc 31.6 g/dL (32-36); Mean Corpuscular Hgb 28.6 pg (27.0-32.0); Mean Corpuscular Volume 90.4 fL (81-99); Mean Platelet Vol. 11.3 fl (6.2-12.0); Monocyte# 0.55 X10^3/uL; Monocyte% 5.8 % (0-10); NRBC Flagged by Analyzer 0 % (0-5); Neutrophil # 6.57 X10^3/uL (2.7-7.7); Neutrophil % 69.9 % (47-70); Platelet Count 202 K/mm3 (150-450); RBC Distribution Width CV 13.6 % (11.6-14.6); RBC Distribution Width SD 45.4 fl (35.1-43.9); Red Blood Count 5.11 M/mm3 (4.2-5.4); White Blood Count 9.4 K/mm3 (4.4-11.0)
== END 2023-12-11 18:00 | disposition home or self-care (01) ==
LOC: LAB 09:36
PROVIDERS: Family Provider Family Medicine; PCP Family Medicine; Referring Provider Psychiatry & Neurology Psychiatry; Visit Provider Psychiatry & Neurology Psychiatry
DX: Z79.899 Other long term (current) drug therapy (principal)
CPT/HCPCS: 36415; 85025

== ENCOUNTER 2023-12-13 18:07 | Emergency (ER) | payer MEDICARE, MEDICAID, SELFPAY ==
[2023-12-13 18:09] VITALS: BP 130/79; PULSE 120; RESP 20; TEMP 36.1; O2SAT 93; BMI 33.4
--- NOTE | 2023-12-13 18:21 | ED.VIS.GI ---
HPI HPI - GI History of Present Illness Chief Complaint: Abd Pain Narrative Narrative: 58-year-old female presenting with nausea. She states that she was at her nursing facility today and drank some milk and ate a Parfait and went up to her room. At this point she felt nauseous. She is felt nauseous most of the day. She states she thinks she might of came down with a flu bug . Patient states has been some women at the facility coughing and sneezing. Patient does state that she has some abdominal pain which is diffuse and she describes it as crampy. Patient states that she has not vomited and she has not had diarrhea. Denies urinary or vaginal complaints. Past abdominal surgeries include cholecystectomy. No history of bowel obstruction. [facility] Medical History Anxiety and depression COPD (chronic obstructive pulmonary disease) GERD (gastroesophageal reflux disease) HTN (hypertension) Hyperlipidemia Obesity LIDA on CPAP Restless leg syndrome Schizophrenia Type 2 diabetes mellitus Home Medications cholecalciferol (vitamin D3) 25 mcg (1,000 unit) capsule (Vitamin D3) 1,000 unit PO DAILY SUPPLEMENT 10/17/17 [History Last Taken 07/30/21] aspirin 325 mg tablet,delayed release 325 mg PO DAILY@1600 heart health 07/22/18 [History Last Taken 07/30/21] omeprazole 20 mg capsule,delayed release 20 mg PO DAILY indigestion 10/31/19 [History Last Taken 07/30/21] potassium chloride 20 mEq tablet,extended release(part/cryst) 20 meq PO DAILY supplement 11/16/19 [History Last Taken 07/30/21] clozapine 100 mg tablet 100 mg PO 4X/DAY SCHIZOPHRENIA 07/30/21 [History Last Taken 07/30/21] empagliflozin 10 mg tablet (Jardiance) 10 mg PO DAILY diabetes 07/30/21 [History Last Taken 07/30/21] furosemide 20 mg tablet 20 mg PO DAILY FLUID 07/30/21 [History Last Taken 07/30/21] insulin glargine 100 unit/mL (3 mL) subcutaneous pen (Lantus Solostar U-100 Insulin) 48 unit subcut DAILY@1600 DM 07/30/21 [History Last Taken 07/30/21] metoprolol succinate 25 mg tablet,extended release 24 hr 25 mg PO QHS HTN 07/30/21 [History Last Taken 07/29/21] clonazepam 0.5 mg tablet 1 mg PO BID schizophrenia 06/05/22 [History Last Taken Unknown] ferrous sulfate 325 mg (65 mg iron) tablet (Feosol) 325 mg PO .BID with meals anemia 06/05/22 [History Last Taken Unknown] pramipexole 0.5 mg tablet 0.25 mg PO QHS restless legs 06/05/22 [History Last Taken Unknown] atorvastatin 10 mg tablet 10 mg PO DAILY Cholesterol 08/14/23 [History Last Taken Unknown] guaifenesin 1,200 mg tablet, extended release 12 hr (Mucus Relief ER) 1,200 mg PO DAILY congestion 08/14/23 [History Last Taken Unknown] haloperidol 2 mg tablet 2 mg PO QHS anxiety 08/14/23 [History Last Taken Unknown] metformin 500 mg tablet,extended release 24 hr 1,000 mg PO BID Diabetes 08/14/23 [History Last Taken Unknown] benztropine 0.5 mg tablet 0.5 mg PO BID tremors 08/15/23 [History Last Taken Unknown] doxycycline hyclate 100 mg tablet 100 mg PO BID 7 days #14 tabs 08/16/23 [Rx Last Taken Unknown] guaifenesin 1,200 mg tablet, extended release 12 hr (Mucus Relief ER) 1,200 mg PO BID #20 tabs 08/16/23 [Rx Last Taken Unknown] prednisone 20 mg tablet 20 mg PO BID #14 tabs 08/16/23 [Rx Last Taken Unknown] ondansetron 4 mg disintegrating tablet 4 mg PO Q8H PRN PRN Nausea #14 tabs 12/13/23 [Rx Last Taken Unknown] peg 3350-electrolytes 236 gram-22.74 gram-6.74 gram-5.86 gram solution (Golytely) 240 ml PO Q10M PRN #4,000 mL 12/13/23 [Rx Last Taken Unknown] Allergy/AdvReac Type Severity Reaction Status Date / Time No Known Allergies Allergy Verified 12/13/23 18:16 Family History Mother Heart disease Hypertension Father COPD (chronic obstructive pulmonary disease) Cancer Surgical History History of cholecystectomy History of mandibular surgery Social History housing: other details: assisted. Smoking Status: Former smoker how long ago did patient quit smoking: Quit 10 years prior to 08/14/23 presentation, 2 ppd since teen until quit. alcohol intake: never substance use type: does not use ROS ROS ED Constitutional Constitutional ED: Denies chills, fever(s) or sweats Eyes Eyes: Denies blurry vision or change in vision ENT ENT ED: Denies ear pain or sore throat Cardiovascular Cardiovascular: Denies chest pain, palpitations or racing heartbeat Respiratory/Chest Respiratory/Chest: Denies cough, dyspnea or sputum Gastrointestinal Gastrointestinal: Reports abdominal pain, nausea and vomiting; Denies constipation or diarrhea Genitourinary Genitourinary ED: Denies dysuria, hematuria or urinary frequency Musculoskeletal Musculoskeletal: Denies arthralgias, myalgias or neck pain Integumentary Denies abscess, Abrasions or rash Neurologic Neurologic: Denies headache(s), paresthesias or weakness Psychiatric Psychiatric: Denies anxiety, depression, suicidal ideation or suicidal thoughts Endocrine Endocrinology: Denies polydipsia or polyuria EXAM Physical Exam Const Vital Signs: 12/13/23 18:09 12/13/23 20:08 12/13/23 22:08 Temperature 96.9 F L Temperature Source Temporal Pulse Rate 120 H Respiratory Rate 20 H 18 20 H Blood Pressure 130/79 H Blood Pressure Mean 96 Pulse Ox 93 Oxygen Delivery Method Room Air Positive well nourished General Appearance ED: NAD; Negative for pallor HEENT Reports moist mucous membranes normocephalic and atraumatic Eyes PERRL and EOMs intact bilaterally Resp normal respiratory effort Cardio regular rate and regular rhythm GI GI Narrative: Mildly tender diffusely. Back/Spine no CVA tenderness Neuro CN's II-XII intact bilaterally Sensorium / Orientation: alert Motor Exam: strength 5/5 throughout Psych mental status grossly normal and thought process normal Skin General Skin Exam: Negative for jaundice or pallor MDM MDM MDM Narrative Medical decision making narrative: 58-year-old female presenting with abdominal pain, nausea, vomiting. Patient presenting with right flank pain. Differential includes colitis, diverticulitis, gastritis, pancreatitis, constipation, appendicitis, UTI, pyelonephritis, calculi, ureteral calculi, obstruction, malignancy, dehydration, electrolyte abnormalities, COVID, influenza, RSV. Patient given IV fluids. Zofran for nausea. Patient CBC obtained to assess white blood cell count, hemoglobin complaints. CMP to assess liver function, electrolytes. Lipase to assess for pancreatitis. Urinalysis to assess for UTI. Mild leukocytosis of 15.3. Hemoglobin 14.1. Platelets normal at 226. Creatinine is normal. Glucose slightly elevated 146 without anion gap. Sodium slightly low at 129. Patient was given IV fluids. Alkaline phosphatase is normal. Otherwise LFTs are normal. Lipase negative. Urinalysis negative for infection. COVID, influenza, RSV are all negative as well. Patient complained of abdominal pain at this point and we did obtain a CT of the abdomen pelvis which shows constipation no other acute abnormality. Patient will be given GoLytely to take back to the facility as the facility stated that they do not have anything for constipation there. I also's suspect she might have a flu virus that she is complaining of body aches and chills. She tested negative today. Will give her some Zofran as well for home to help with nausea. Return precautions discussed. Impression: 1. Abdominal pain 2. Nausea/vomiting 3. Constipation Lab Data Labs: Laboratory Results - last 24 hr 12/13/23 12/13/23 18:34 21:05 WBC 15.3 H RBC 4.90 Hgb 14.1 Hct 42.7 MCV 87.1 MCH 28.8 MCHC 33.0 RDW Std Deviation 42.6 RDW Coeff of Tyesha 13.5 Plt Count 226 MPV 9.5 Immature Gran % (Auto) 0.300 Neut % (Auto) 83.5 H Lymph % (Auto) 8.5 L Stoddard % (Auto) 7.2 Eos % (Auto) 0.3 Baso % (Auto) 0.2 Absolute Neuts (auto) 12.8 H Absolute Lymphs (auto) 1.30 Nucleated RBC % 0 Sodium 129 L Potassium 4.1 Chloride 100 Carbon Dioxide 22.0 Anion Gap 7 BUN 22 H Creatinine 0.55 Estim Creat Clear Calc 104.39 Est GFR (MDRD) Af Amer 144 Est GFR (MDRD) Non-Af 119 BUN/Creatinine Ratio 39.8 H Glucose 146 H Calcium 9.1 Total Bilirubin 0.50 AST 23 ALT 43 Alkaline Phosphatase 141 H Total Protein 7.2 Albumin 3.5 Globulin 3.7 Albumin/Globulin Ratio 0.9 Lipase 37 Urine Color Straw Urine Clarity Clear Urine pH 6.0 Ur Specific [place] 1.010 Urine Protein Negative Urine Glucose (UA) 1000 H Urine Ketones 5 H Urine Occult Blood Negative Urine Nitrite Negative Urine Bilirubin Negative Urine Urobilinogen Normal Ur Leukocyte Esterase 25 H Urine RBC 0 SEEN Urine WBC 0-5 SEEN Ur Squamous Epith Cells 0-5 SEEN Urine Bacteria 0 SEEN Urine Mucus 0 SEEN Radiography Diagnostic Testing: Clinical Impression(s) from Imaging Studies Abdomen/Pelvis CT 12/13/23 21:25 IMPRESSION: Moderate stool in the colon compatible with constipation. No other acute abnormalities are identified. Electronically Signed: Tj Rosales MD at 22:00 EST , Discharge Plan Triage Chief Complaint: Abd Pain ED Provider: Jey Quesada Dx/Rx/DC Orders Instructions: ED Constipation (Adult), ED Diet Vomiting Diarrhea Prescriptions: New ondansetron 4 mg tablet,disintegrating 4 mg PO Q8H PRN PRN (Reason: Nausea) Qty: 14 0RF peg 3350-electrolytes [Golytely] 236-22.74-6.74 -5.86 gram recon soln 240 ml PO Q10M PRN Qty: 4000 0RF Rx Instructions: until fecal effluent is clear No Action cholecalciferol (vitamin D3) [Vitamin D3] 1,000 UNIT capsule 1,000 unit PO DAILY aspirin 325 MG tablet,delayed release (DR/EC) 325 mg PO DAILY@1600 omeprazole 20 MG capsule,delayed release(DR/EC) 20 mg PO DAILY potassium chloride 20 MEQ tablet 20 meq PO DAILY metoprolol succinate 25 mg Tablet Extended Release 24 Hr 25 mg PO QHS Jardiance 10 mg Tablet 10 mg PO DAILY furosemide 20 mg tablet 20 mg PO DAILY insulin glargine [Lantus Solostar U-100 Insulin] 100 unit/mL (3 mL) insulin pen 48 unit SUBCUT DAILY@1600 clozapine 100 MG tablet 100 mg PO 4X/DAY clonazepam 0.5 mg Tablet 1 mg PO BID pramipexole 0.5 mg Tablet 0.25 mg PO QHS Rx Instructions: Take half table PO at bedtime ferrous sulfate [Feosol] 325 mg (65 mg iron) Tablet 325 mg PO .BID with meals metformin 500 mg tablet extended release 24 hr 1,000 mg PO BID haloperidol 2 mg tablet 2 mg PO QHS guaifenesin [Mucus Relief ER] 1,200 mg tablet extended release 12hr 1,200 mg PO DAILY atorvastatin 10 mg tablet 10 mg PO DAILY benztropine 0.5 mg tablet 0.5 mg PO BID doxycycline hyclate 100 mg tablet 100 mg PO BID 7 Days Qty: 14 0RF prednisone 20 mg tablet 20 mg PO BID Qty: 14 0RF guaifenesin [Mucus Relief ER] 1,200 mg tablet extended release 12hr 1,200 mg PO BID Qty: 20 0RF Primary Care Provider: Boris Vance Referrals: Boris Vance MD [Primary Care Provider] - Disposition Disposition: Home, Self Care
[2023-12-13] MEDS: Ondansetron 4 MG/2 ML Vial IV ×2 (18:33→20:25)
[2023-12-13] MEDS: 0.9% Normal Saline (1000mL) 1,000 ML 1000 ML IV (18:33)
--- OUTSIDE RECORDS SUMMARY | 2023-12-13 18:48 | XMS RPT_ITS | CCD ---
Author Name Unknown Address [address] [place] [address] Organization [facility] Care Team Providers [employer] Secretary Name Role Phone KIMBERLY AMAYA Unavailable Unavailable ELDA AMAYANETH Unavailable Unavailable Robert, Boris Unavailable Unavailable KIMBERLY AMAYA Unavailable Unavailable KIMBERLY AMAYA Unavailable Unavailable Robert, Boris Unavailable Unavailable Boris Vance MD Primary Care Provider Koby Floyd Unavailable Boris Vance MD Primary Care Provider Koby Floyd Unavailable Boris Vance MD Primary Care Provider Boris Vance MD Primary Care Provider Koby Floyd Unavailable ROBERT, BORIS Primary Care Unavailable MEREDITH MOORE Referring Unavailable ROBERT, BORIS Attending Unavailable ROBERT, BORIS Primary Care Unavailable ROBERT, BORIS Primary Care Unavailable RADHA BATISTA Attending Unavailable ROBERT, BORIS Primary Care Unavailable HAAGENRADHA Referring Unavailable ROBERT, BORIS Primary Care Unavailable HAAGEN, RADHA Referring Unavailable ROBERT, BORIS Primary Care Unavailable HAAGEN, RADHA Referring Unavailable ROBERT, BORIS Primary Care Unavailable HAAGEN, RADHA Referring Unavailable ROBERT, BORIS Primary Care Unavailable HAAGEN, RADHA Referring Unavailable ROBERT, BORIS Primary Care Unavailable HAAGEN, RADHA Referring Unavailable ALMA GRAMAJO Attending Unavailable ROBERT, BORIS Primary Care Unavailable ROBERT, BORIS Primary Care Unavailable WILDA, RADHA Attending Unavailable FUENTES RENEE Referring Unavailable FUENTES RENEE Attending Unavailable ROBERT, BORIS Primary Care Unavailable ROBERT, BORIS Primary Care Unavailable RADHA BATISTA Attending Unavailable ROBERT, BORIS Primary Care Unavailable HAAGEN, RADHA Referring Unavailable Medications Current Medications Medication Drug Class(es) [...] Date Documented Da te Episodic/Chronic Abdominal pain (4 sources) Epigastric pain; Translations: [Epigastric pain] Episodic [...] unspecified] Onset: 2 05-06-2012 Chronic Esophageal disorders (6 sources) Gastroesophageal reflux disease without esophagitis; Translations: [Gastro-esophageal reflux disease without esophagitis] Onset: 3 Chronic Essential hypertension (4 sources) Essential hypertension; Translations: [Essential (primary) hypertension] [...] deficiency, unspecified] Onset: 9 05-03-2011 Chronic Other connective tissue disease (1 source) Pain in right leg; Translations: [Pain in both lower extremities] Onset: 4 Episodic Other connective tissue disease (1 source) Pain in left leg; Translations: [Pain in both lower extremities] Onset: 4 Episodic Other connective tissue disease (1 source) Pain in bilateral legs; Translations: [Pain in right leg] 12-02-2023 Episodic Other female genital disorders (1 source) Pruritus [...] nutritional; endocrine; and metabolic disorders (1 source) Hypercalcemia; Translations: [Serum calcium elevated] Onset: 4 Chronic Other nutritional; endocrine; and metabolic disorders (1 source) Weight loss; Translations: [Abnormal weight loss] 04-29-2023 Episodic Other skin disorders (1 source) Skin irritation ; Translations: [Other skin changes] Episodic Residual codes; unclassified (20 sources) Obstructive sleep apnea syndrome; Translations: [Obstructive sleep apnea (adult) (pediatric)] Onset: 7 11-07-2017 Chronic Respiratory failure; insufficiency; arrest (adult) (3 sources) Acute respiratory failure; Translations: [Acute respiratory failure [...] Onset: 04-29-2023 Episodic Other aftercare (1 source) prison (current) use of insulin; Translations: [Type 2 [...] Date Time Vital Sign Value Performing Clinician Dominic dutta 09-22-2023 15:48-0500 Body weight 78.93 kg Fuentes Renee MD Work Phone: [facility] 09-22-2023 15:48-0500 Diastolic blood pressure 76 mm[Hg] Fuentes Renee MD Work Phone: [facility] 09-22-2023 15:48-0500 Heart rate 114 /min Fuentes Renee MD Work Phone: [facility] 09-22-2023 15:48-0500 SaO2% (BldA) [Mass fraction] 96 % Fuentes Renee MD Work Phone: [facility] 09-22-2023 15:48-0500 Systolic blood pressure 118 mm[Hg] Fuentes Renee MD Work Phone: [facility] 08-29-2023 15:12-0500 Body height 154.9 cm Alma Rox TELETYPIST.HOSPITAL SUPERINTENDENT Work Phone: [facility] 08-29-2023 15:12-0500 Body weight 78.93 kg Alma Rox TELETYPIST.HOSPITAL SUPERINTENDENT Work Phone: [facility] 08-29-2023 15:12-0500 Diastolic blood pressure 72 mm[Hg] Alma Rox TELETYPIST.HOSPITAL SUPERINTENDENT Work Phone: [facility] 08-29-2023 15:12-0500 Systolic blood pressure 118 mm[Hg] Alma Portland TELETYPIST.HOSPITAL SUPERINTENDENT Work Phone: [facility] 04-29-2023 14:31-0400 Body weight 78.02 kg Radha Haagen TELETYPIST.HOSPITAL SUPERINTENDENT Work Phone: [facility] 04-29-2023 14:31-0400 Diastolic blood pressure 82 mm[Hg] Radha Haagen TELETYPIST.HOSPITAL SUPERINTENDENT Work Phone: [facility] 04-29-2023 14:31-0400 Heart rate 109 /min Radha Haagen TELETYPIST.HOSPITAL SUPERINTENDENT Work Phone: [facility] 04-29-2023 14:31-0400 Respiratory rate 16 /min Radha Haagen TELETYPIST.HOSPITAL SUPERINTENDENT Work Phone: [facility] 04-29-2023 14:31-0400 SaO2% (BldA) [Mass fraction] 92 % Radha Haagen TELETYPIST.HOSPITAL SUPERINTENDENT Work Phone: [facility] 04-29-2023 14:31-0400 Systolic blood pressure 124 mm[Hg] Radha Haagen TELETYPIST.HOSPITAL SUPERINTENDENT Work Phone: [facility] 08-28-2022 13:53-0500 Body weight 83.01 kg Radha Haagen TELETYPIST.HOSPITAL SUPERINTENDENT Work Phone: [facility] 08-28-2022 13:53-0500 Diastolic blood pressure 72 mm[Hg] Radha Haagen TELETYPIST.HOSPITAL SUPERINTENDENT Work Phone: [facility] 08-28-2022 13:53-0500 Heart rate 98 /min Radha Haagen TELETYPIST.HOSPITAL SUPERINTENDENT Work Phone: [facility] 08-28-2022 13:53-0500 Respiratory rate 18 /min Radha Haagen TELETYPIST.HOSPITAL SUPERINTENDENT Work Phone: [facility] 08-28-2022 13:53-0500 SaO2% (BldA) [Mass fraction] 96 % Radha Haagen TELETYPIST.HOSPITAL SUPERINTENDENT Work Phone: [facility] 08-28-2022 13:53-0500 Systolic blood pressure 124 mm[Hg] Radha Haagen TELETYPIST.HOSPITAL SUPERINTENDENT Work Phone: [facility] 08-08-2022 13:42-0400 Body temperature 97.39 [degF] Zaira García TELETYPIST.HOSPITAL SUPERINTENDENT Work Phone: [facility] 08-08-2022 13:42-0400 Body weight 82.83 kg Zaira García TELETYPIST.HOSPITAL SUPERINTENDENT Work Phone: [facility] 08-08-2022 13:42-0400 Diastolic blood pressure 76 mm[Hg] Zaira García TELETYPIST.HOSPITAL SUPERINTENDENT Work Phone: [facility] 08-08-2022 13:42-0400 Heart rate 108 /min Zaira García TELETYPIST.HOSPITAL SUPERINTENDENT Work Phone: [facility] 08-08-2022 13:42-0400 Respiratory rate 16 /min Zaira García TELETYPIST.HOSPITAL SUPERINTENDENT Work Phone: [facility] 08-08-2022 13:42-0400 SaO2% (BldA) [Mass fraction] 97 % Zaira García TELETYPIST.HOSPITAL SUPERINTENDENT Work Phone: [facility] 08-08-2022 13:42-0400 Systolic blood pressure 130 mm[Hg] Zaira García TELETYPIST.HOSPITAL SUPERINTENDENT Work Phone: [facility] 07-05-2022 13:00-0400 Body temperature 97 [degF] Zaira García TELETYPIST.HOSPITAL SUPERINTENDENT Work Phone: [facility] 07-05-2022 13:00-0400 Body weight 83.19 kg Zaira García TELETYPIST.HOSPITAL SUPERINTENDENT Work Phone: [facility] 07-05-2022 13:00-0400 Diastolic blood pressure 74 mm[Hg] Zaira García TELETYPIST.HOSPITAL SUPERINTENDENT Work Phone: [facility] 07-05-2022 13:00-0400 Heart rate 112 /min Zaira García TELETYPIST.HOSPITAL SUPERINTENDENT Work Phone: [facility] 07-05-2022 13:00-0400 Respiratory rate 18 /min Zaira García TELETYPIST.HOSPITAL SUPERINTENDENT Work Phone: [facility] 07-05-2022 13:00-0400 SaO2% (BldA) [Mass fraction] 97 % Zaira García TELETYPIST.HOSPITAL SUPERINTENDENT Work Phone: [facility] 07-05-2022 13:00-0400 Systolic blood pressure 122 mm[Hg] Zaira García TELETYPIST.HOSPITAL SUPERINTENDENT Work Phone: [facility] 03-27-2022 14:06-0400 Diastolic blood pressure 82 mm[Hg] Radha Haagen TELETYPIST.HOSPITAL SUPERINTENDENT Work Phone: [facility] 03-27-2022 14:06-0400 Heart rate 103 /min Radha Haagen TELETYPIST.HOSPITAL SUPERINTENDENT Work Phone: [facility] 03-27-2022 14:06-0400 Respiratory rate 18 /min Radha Haagen TELETYPIST.HOSPITAL SUPERINTENDENT Work Phone: [facility] 03-27-2022 14:06-0400 SaO2% (BldA) [Mass fraction] 98 % Radha Haagen TELETYPIST.HOSPITAL SUPERINTENDENT Work Phone: [facility] 03-27-2022 14:06-0400 Systolic blood pressure 120 mm[Hg] Radha Haagen TELETYPIST.HOSPITAL SUPERINTENDENT Work Phone: [facility] 01-30-2022 13:12-0400 Body weight 85.64 kg Radha Haagen TELETYPIST.HOSPITAL SUPERINTENDENT Work Phone: [facility] 01-30-2022 13:12-0400 Diastolic blood pressure 78 mm[Hg] Radha Haagen TELETYPIST.HOSPITAL SUPERINTENDENT Work Phone: [facility] 01-30-2022 13:12-0400 Heart rate 106 /min Radha Haagen TELETYPIST.HOSPITAL SUPERINTENDENT Work Phone: [facility] 01-30-2022 13:12-0400 Respiratory rate 16 /min Radha Haagen TELETYPIST.HOSPITAL SUPERINTENDENT Work Phone: [facility] 01-30-2022 13:12-0400 Systolic blood pressure 112 mm[Hg] Radha Haagen TELETYPIST.HOSPITAL SUPERINTENDENT Work Phone: [facility] 01-14-2022 15:12-0400 Body weight 84.82 kg Boris Vance MD Work Phone: [facility] 01-14-2022 15:12-0400 Diastolic blood pressure 68 mm[Hg] Boris Vance MD Work Phone: [facility] 01-14-2022 15:12-0400 Heart rate 118 /min Boris Vance MD Work Phone: [facility] 01-14-2022 15:12-0400 SaO2% (BldA) [Mass fraction] 95 % Boris Vance MD Work Phone: [facility] 01-14-2022 15:12-0400 Systolic blood pressure 102 mm[Hg] Boris Vance MD Work Phone: [facility] Encounters Encounter Date Encounter Type Care Provider Facility Start: 12-02-2023 Refill Boris Vance MD Work Phone: [facility] [place] Procedures Date Procedure Procedure Detail Performing Clinician Start: 05-26-2023 Myocardial spect mul tiple studies Radha Batista APRN.CNP Work Phone: Start: 01-14-2022 Adult depression scr eening assessment Boris Vance MD Work Phone: Start: 06-27-2021 Mammography Boris Anaya MD Work Phone: Start: 08-05-2019 Adult depression scr eening assessment Boris Vance MD Work Phone: Start: 12-19-2016 Colonoscopy Boris Anaya MD Work Phone: Plan of Treatment Date Care Activity Detail Author Start: 07-18-2028 Urine microalbumin profile DTaP,Tdap,Td Vaccine (3 - Td or Tdap) [facility] Start: 12-19-2026 Colonoscopy COLONOSCOPY [facility] Start: 12-19-2026 COLORECTAL CANCER SCREENING COLORECTAL CANCER SCREENING [facility] Start: 12-19-2026 Screening for malignant neoplasm of colon [facility] Start: 01-24-2026 HPV TESTING HPV TESTING [facility] Start: 01-24-2026 PAP TESTING PAP TESTING [facility] Start: 01-24-2026 Screening for malignant neoplasm of cervix [facility] Start: 11-17-2024 Glaucoma screening Dilated Retinal Exam [facility] Start: 11-05-2024 Annual PCP Team Chronic Disease Visit Annual PCP Team Chronic Disease Visit [facility] Start: 11-05-2024 BP Controlled (<130/80) BP Controlled (<130/80) [facility] Start: 11-05-2024 Hepatitis B surface antibody level LDL Cholesterol [facility] Start: 09-22-2024 BP Controlled (<130/80) BP Controlled (<130/80) [facility] Start: 09-19-2024 Annual PCP Team Chronic Disease Visit Annual PCP Team Chronic Disease Visit [facility] Start: 05-05-2024 Hemoglobin A1c measurement HbA1C [facility] Start: 04-29-2024 ANNUAL PCP TEAM CHRONIC DISEASE VISIT ANNUAL PCP TEAM CHRONIC DISEASE VISIT [facility] Start: 04-29-2024 Hepatitis B surface antibody level LDL CHOLESTEROL [facility] Start: 12-21-2023 ANNUAL PCP TEAM CHRONIC DISEASE VISIT ANNUAL PCP TEAM CHRONIC DISEASE VISIT [facility] Start: 2023 RSV Vaccine (1 - 1-dose 60+ series) RSV Vaccine (1 - 1-dose 60+ series) [facility] Start: 10-30-2023 Hemoglobin A1c/Hemoglobin.total in Blood HBA1C [facility] Start: 10-13-2023 Depression Assessment Depression Assessment [facility] Start: 09-17-2023 Hepatitis C antibody, confirmatory test DILATED RETINAL EXAM [facility] Start: 08-28-2023 ANNUAL PCP TEAM CHRONIC DISEASE VISIT ANNUAL PCP TEAM CHRONIC DISEASE VISIT [facility] Start: 08-21-2023 Hepatitis B surface antibody level LDL CHOLESTEROL [facility] Start: 06-13-2023 Covid-19 Vaccine () Covid-19 Vaccine () [facility] Start: 06-13-2023 Influenza vaccination [facility] Start: 04-29-2023 End: 06-29-2023 Bacteria identified in Urine by Culture [facility] Work Phone: Immunizations Immunization Date Immunization Notes Care Provider Rayna oconnell 11-05-2023 COVID-19 vaccine, ag e 12+ yr, season [facility] Meredith Moore TELETYPIST.HOSPITAL SUPERINTENDENT Work Phone: [facility] 11-05-2023 influenza, injectabl e, quadrivalent, contains preservative Meredith Moore TELETYPIST.HOSPITAL SUPERINTENDENT Work Phone: [facility] 08-22-2022 influenza virus vacc ine, unspecified formulation Fuentes Renee MD Work Phone: [facility] 06-29-2021 influenza, injectabl e, quadrivalent, contains preservative Boris Vance MD Work Phone: [facility] 11-29-2020 COVID-19 vaccine, fu ll dose (MODERNA) Boris Vance MD Work Phone: [facility] 11-01-2020 COVID-19 vaccine, fu ll dose (MODERNA) Boris Vance MD Work Phone: [facility] 07-19-2020 influenza, injectabl e, quadrivalent, contains preservative Boris Vance MD Work Phone: [facility] 10-18-2019 influenza, injectabl e, quadrivalent, contains preservative Boris Vance MD Work Phone: [facility] Work Phone: 07-17-2018 influenza, injectabl e, quadrivalent, contains preservative Boris Vance MD Work Phone: [facility] 07-04-2016 influenza, injectabl e, quadrivalent, contains preservative Boris Vance MD Work Phone: [facility] 08-08-2014 pneumococcal polysaccharide vaccine, 23 valent Boris Vance MD Work Phone: [facility] 07-27-2014 influenza, seasonal, injectable Boris Vance MD Work Phone: [facility] Work Phone: 01-13-2013 tetanus toxoid, redu regino diphtheria toxoid, and acellular pertussis vaccine, adsorbed Boris Vance MD Work Phone: [facility] Work Phone: 08-05-2011 influenza virus vacc ine, unspecified formulation Boris Vacne MD Work Phone: [facility] Work Phone: 08-22-2010 influenza virus vacc ine, unspecified formulation Boris Vance MD Work Phone: [facility] Work Phone: 1965 influenza, seasonal, injectable Boris Vance MD Work Phone: [facility] Payers Date Payer Category Payer Medicare [facility] [employer] ARE [facility] [id number] 2023-Present [phone] [address] [place] [address] Medicare [id number] 2020 Medicaid [facility] [employer] [employer] [facility] [employer] [id number] 2020-Present [phone] [address] [place] [address] Medicaid [id number] 2020 Medicare [id number] 2020 Medicare [id number] Medicare [id number] Social History Date Type Detail Facility Start: 01-25-2014 End: 06-03-2022 Tobacco smoking status NHIS Ex-smoker [facility] End: 01-11-2014 History of tobacco use Current smoker [facility] End: 01-11-2014 History of tobacco use Cigarette Smoker [facility] Start: 01-25-2014 End: 03-12-2023 Cigarettes smoked current (pack per day) - Reported 2 [facility] Start: 01-25-2014 End: 06-03-2022 Tobacco use and exposure Smokeless tobacco non-user [facility] Start: 09-26-2021 End: 11-05-2023 Alcohol intake Current non-drinker of alcohol (finding) [facility] Start: 06-19-2018 History SDOH Alcohol Frequency 1 [facility] Start: 06-26-2018 History SDOH Social Connections Phone 5 [facility] Start: 06-26-2018 History SDOH Social Connections Get Together 3 [facility] Start: 06-26-2018 History SDOH Social Connections Living 7 [facility] Start: 06-26-2018 History SDOH Physica l Activity DPW 4 [facility] Start: 06-19-2018 End: 06-26-2018 History SDOH Physical Activity MPS 2 [facility] Start: 06-26-2018 Education 13 [facility] Start: 1965 Sex Assigned At Not on file [facility] Start: 01-04-2022 End: 08-08-2022 Exposure to SARS-CoV-2 (event) Not sure [facility] Start: 06-26-2018 End: 03-12-2023 Social connection and isolation panel [facility] Attends [employer] Services Not on file [facility] Are you now , , , , never or living with a partner? Never [facility] How often to you hav e a drink containing alcohol? Never [facility] Do you feel stress - tense, restless, nervous, or anxious, or unable to sleep at night because your mind is troubled all the time - these days [OSQ] Only a little [facility] (I/We) worried wheth er (my/our) food would run out before (I/we) got money to buy more. Never true [facility] Medical Equipment Procedure Code Equipment Code Equipment Origin al Text Equipment Identifier Dates Start: 01-23-2015 End: 09-10-2023 Goals Date Patient Goal Desired Activity /State Personal health goal Personal health goal Clinical Notes 08-06-2018 to 12-02-2023 Telephone Encounter - Shanell Estes LPN - 12/02/2023 2:43 PM ESTTelephone Encounter - Edel Katz LPN - 11/20/2023 8:47 AM Fuentes Solorzano MD - 09/22/2023 3:56 PM EST Note Date & Type Note Facility 12-02-2023 Miscellaneous Notes Patient has been identified by name and date of : Yes, Provider Dr Vance Patient phones for refill(s): Requested Prescriptions Pending Prescriptions Disp Refills meloxicam (MOBIC) 15 mg tablet 30 tablet 1 Sig: Take 1 tablet by mouth once daily. With food. omeprazole (PRILOSEC) 20 mg capsule 30 capsule 5 Sig: Take 1 capsule by mouth daily before breakfast. 1/2 hr before meal. Date of last office visit in primary care: 11/05/2023 Date of next office visit in primary care: 05/04/2024 Please advise. Thank you. Shanell Estes LPN. documented in this encounter [facility] 11-20-2023 Miscellaneous Notes Patient notified of results, verbalizes understanding of instructions. Edel Katz LPN Can you please call the patient and let her know I reviewed her lab results. Additional labs were normal, calcium is at normal levels. No further testing needed at this time. Please let me know if she has any questions. Thank you. Meredith Moore APRN.HOSPITAL SUPERINTENDENT documented in this encounter [facility] 11-05-2023 Note HNO ID: [id number] Author: RADHA BATISTA APRN.PAVITHRA Service: ? Author Type: Nurse Practitioner Type: Progress Notes Filed: 11/05/2023 17:50 Note Text: This is a 57 year old female who presents today with: Patient presents with: Recheck: 6 month follow up HISTORY OF PRESENT ILLNESS: Brittnee Le is a 57 year old female. Patient presents with: Recheck: 6 month follow up Pt presents today with leg pain. Refers they fell dull and ache. Refers that she stumbles around on them. Refers previously put on a medication at night. Has taken ibuprofen, but does not consistently help. Unsure what makes it feel worse, hurts all the time. Describes from the knee down. Sometimes a burning sensation. DM: Reports overall feeling well. Medication side effects: No. Home sugar checks: up to 140's. Higher in the morning. Hypoglycemic spells: maybe gets once a month -- will drink an iced tea. Watching diet: No. Unexpected weight loss: No. Polyuria, polydipsia: No. Vision Changes: Yes. Will get blury and dry. Has appt with eye doctor on 11/17. Foot lesions or numbness or pain: No. HYPERLIPIDEMIA: Patient is taking medications: yes. Patient is watching diet: No. Patient denies myalgias: No. Patient denies gi upset: No HTN: Patient is compliant with meds Yes Monitors bp at home: Yes. In the morning. Denies side effects: Yes. Chest pain: No. Dyspnea: some times when she is going up and down stairs. Edema: No. Palpitations: sometime -- when she is dusting or cleaning. Syncope: gets some orthostatic dizziness. Headache: no Dizziness: Yes Mood: Follows with psychiatry. LIDA: Follows w/ Dr. Ramirez. Wears CPAP. Had adjusted a couple of weeks ago. CHF: Follows with cardiology. Has been stable. COPD: Follows with pulmonology. Awaiting a nebulizer machine. PAST MEDICAL HISTORY: PAST MEDICAL HISTORY Diagnosis Date Bilateral pneumonia 07/23/2018 Admit [facility]: pneumococcal suspected, neg culture. 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 MEDICATIONS Current Outpatient Medications Medication Sig empagliflozin (JARDIANCE) 10 mg tablet Take 1 tablet by mouth daily with breakfast. furosemide (LASIX) 20 mg tablet Take 1 [...] vaginally daily at bedtime. For 7 nights. Hbygk-0-UAN-EPA-Fish Oil (FISH OIL) 300-1,000 mg cap Take [...] by mouth once daily. Take with food. metoprolol succinate ER (TOPROL XL) 25 mg [...] 24 hr tablet Take 2 tablets by mo (more content not included)... [facility] 09-22-2023 Note HNO ID: [id number] Author: Fuentes Renee MD Service: ? Author Type: Physician Type: Progress Notes Filed: 09/22/2023 4:00 PM Note Text: Fuentes Renee MD Interventional Cardiology [address] [place] [address] Chief Complaint Patient presents with: Established Patient [...] HISTORY Diagnosis Date Bilateral pneumonia 07/23/2018 Admit [facility]: pneumococcal suspected, neg culture. 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 For 7 nights. 7 Suppository 0 Vhmqf-6-HUJ-EPA-Fish Oil (FISH OIL) 300-1,000 mg cap Take [...] by mouth t (more content not included)... [facility] 09-22-2023 History of Present illness Narrative Images from the original note were not included. Feuntes Renee MD Interventional Cardiology [address] [address] Chief Complaint Patient presents with: Established Patient [...] HISTORY Diagnosis Date Bilateral pneumonia 07/23/2018 Admit [facility]: pneumococcal suspected, neg culture. + rhinovirus Constipation [...] bedtime. For 7 nights. 7 Suppository 0 Wuhuq-0-GQN-EPA-Fish Oil (FISH OIL) 300-1,000 mg cap Take [...] needles, DISPOSABLE, (PEN NEEDLE) 31 gauge x /16 Use one needle per dose. Once per day. 100 Each 11 Artificial Tear, Hypromellose, (SYSTANE GEL) 0.3 % gel Use 1 Drop in both eyes daily at bedtime. 10 mL 5 Lancing Device with Lancets (Friend.ly PLUS LANC DEV) Check blood sugars twice [...] correct any errors. documented in this encounter [facility] 09-19-2023 Note HNO ID: [id number] Author: Radha Batista APRN.HOSPITAL SUPERINTENDENT Service: ? Author Type: Nurse Practitioner Type: [...] HISTORY Diagnosis Date Bilateral pneumonia 07/23/2018 Admit [facility]: pneumococcal suspected, neg culture. 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 For 7 nights. Ldpcp-8-CAD-EPA-Fish Oil (FISH OIL) 300-1,000 mg cap Take [...] daily at bedtime. Lancing Device with Lancets (Friend.ly PLUS LANC DEV) Check blood sugars twice a day. Dx: E11.21 INVEGA SUSTENNA 156 mg/mL syrg injection clonazePAM (KLONOPIN) 0.5 mg tablet Take 0.5 mg by mouth three times daily as needed. acetaminophen (TYLENOL EXTRA STRENGTH) 500 mg tablet Take 1-2 tablets by mouth every 8 ho (more content not included)... [facility] 09-10-2023 Miscellaneous Notes Leola informed and verbalized understanding. Needs new rx for lancets and strips. Pended. Joselyn Hendricks Can go back to bid and send list in two weeks. Do we need to send in new r for strips and lancets then? Fransisca returned call stating she is reporting BS readings: 08-25: fast: 197, 3 p: 230, 8 p: 203 14: f: 102, 3 p: 164, 8 p: 184 15: f: 115, 11 a: 114, 3p: 153, 8 p: 245 16: f: 140, 11 a: 128, 3 p: 153, 8 p: 245 11-17: f: 166, 11 a: 138, 3 p: 115, 8 p: 219 11-18: f: 146, 3 p: 116, 8 p: 155 11-19: f: 140, 122, 8 p: 209 11-20: f: 120, 11 a: 107, 3 p: 125 11-21: f: 157, 11 a: 196, 3 p: 156, 8 p: 197 1122: f: 182, 11 a: 150, 3 p: 161, 8 p: 121 1123: f: 156, 11 a: 101, 3 p: 184, 8 p: 179 1124: f: 164, 12 p: 170, 3 p: 187, 8 p: 248 09-06: f: 176, 11 a: 141, 3 p: [...] Fransisca to return call TC to patients caser, Leola, to question frequency of BG readings. Leola states that Brittnee recently had COPD exacerbation and was given prednisone. She believed that's why BG was high, she has been taking regular dose of insulin plus sliding scale. Leola reports patients BG is back to her normal readings. Leola unable to verify frequency of BG monitoring and states Fransisca from care home monitors these and to contact her at [phone] after 4 PM for additional information. CHRIS Antunez Can we verify with care home. I have her being testing two times a day Brittnee is calling Boris aVnce MD today Dorie, Community Ambassador from [facility] called due to she needs our office to call and confirm the diabetic information for the patient. The Shelter told her they are testing the patient 5 times per day. They will need new prescriptions for test strips and lancets. Please call back. Patient has been identified by name and birthdate. Closing statement: Results or non-symptom based questions: Thank you for calling [facility], your call will be returned within the next business day. Yany Zuniga documented in this encounter [facility] 09-10-2023 Miscellaneous Notes Patient has been [...] Value 04/29/2023 114 03/12/2019 Test sent to [facility]. Non HDL Cholesterol (mg/dL) Date Value 08/21/2022 118 07/26/2020 132 Blood Pressure: BUN (mg/dL) Date Value 04/29/2023 14 07/19/2021 8 Sodium (mmol/L) Date Value 04/29/2023 135 07/19/2021 133 Last 1 Encounter BP Readings: Date: BP: 08/29/2023 118/72 Please advise. Thank you. Maye Ferrer LPN. documented in this encounter [facility] 09-01-2023 Miscellaneous Notes Pharmacy called and were given verification that medication was to be given for 7 days. Jade Macedo LPN Addended by: ALMA GRAMAJO on: 09/01/2023 12:51 PM Modules accepted: Orders I change the order but I still want it for 7 days. Alma Gramajo APRN.CNP [facility] called. Asking if they could replace the Monistat cream to Miconazole 200 mg suppository to meet the needs of the patient. It comes as a 3 day pack. Edilia Highman RN sheet metal lay out worker notified of information below. Joselyn Haji RN There is an interaction with the Diflucan and another medication she is on, that's why I didn't order it. Alma Gramajo APRN.CNP Patients avionics shop supervisor called and notified of results and instructions. Leola states the care home where Brittnee lives is not licensed to administer the medication and are only able to give verbal prompts. Because patient is very cognitively limited is she able to get oral Diflucan instead of vaginal cream? Will need to call [facility] avionics shop supervisor back. Joselyn Haji RN Please notify patient that she does have a yeast infection. I would like her to use Monistat 7 (or generic) 1 of a applicator full every night for 7 nights. If symptoms do not improve please jazlyn the office. RX sent in. Alma Gramajo APRN.CNP documented in this encounter [facility] 08-29-2023 Note HNO ID: [id number] Author: Alma Gramajo APRN.CNP Service: ? Author [...] external genitalia normal, normal Bartholin's glands, urethra, Ord's glands, no vulvar lesions, no cervical lesions, [...] CLOTRIMAZOLE-BETAMETHASONE 1 %-0.05 % TOPICAL CREAM Alma Gramajo, TELETYPIST.HOSPITAL SUPERINTENDENT Radio Aerial Installer offered: Patient declines. Medical Decision Making: Problems: Low: Acute, uncomplicated illness or injury Data: Unique test(s) ordered: 2 Risk: Low: Low risk from testing/treatment Moderate: Drug management Medical Decision Making Level: 3 - Low [facility] 08-29-2023 History of Present illness Narrative Brittnee [...] external genitalia normal, normal Bartholin's glands, urethra, Ord's glands, no vulvar lesions, no cervical lesions, [...] 1 %-0.05 % TOPICAL CREAM Alma Gramajo APRN.HOSPITAL SUPERINTENDENT Radio Aerial Installer offered: Patient declines. Medical Decision Making: Problems: Low: Acute, uncomplicated illness or injury Data: Unique test(s) ordered: 2 Risk: Low: Low risk from testing/treatment Moderate: Drug management Medical Decision Making Level: 3 - Low documented in this encounter [facility] 08-28-2023 Miscellaneous Notes Patient has been identified by name and date of : Yes, Provider [place] Date 08-28-23 Time 8:36 am Pharmacy phones [...] Alma Smart RN. documented in this encounter [facility] 08-21-2023 Miscellaneous Notes [place] it again! [...] option? If so, please send rx to [facility]. Thank you, Shanell Estes LPN The following [...] Brandy Mark LPN documented in this encounter [facility] 08-19-2023 Miscellaneous Notes Fransisca Pandya Resident Staff at the Shelter [facility] the [facility] called and is notified of providers results and instructions. She voices understanding. Priya White, JAH Have her cover ac+HS blood sugars as [...] PA-C Fransisca Pandya Resident Staff at the [facility] she reports Pt was in the [...] call and advise. documented in this encounter [facility] 08-12-2023 Miscellaneous Notes Patient has been [...] Anusha Hansen RN. documented in this encounter [facility] 07-16-2023 Note Patient Outreach (IN TMMN) BRITTNEE LE ([id number]) 1965 F Date Time Provider Department 07/16/23 BORIS VANCE During your visit today, we recorded the following information about you: Allergies As of Date: 07/16/2023 (No Known Allergies) Date Reviewed: 05/26/2023 Reviewed by: Sarina Lee, RT(R) - Partially Assessed Visit Diagnosis:Encounter for screening mammogram for breast cancer [Z12.31] Order(s):[facility] SCREENING [[id number]] Order #: [id number] FUTURE Prescriptions as of 07/21/2023 - aspirin, [...] at bedtime. - Lancing Device with Lancets (Friend.ly PLUS LANC DEV) Check blood sugars twice [...] [K29.70] 08/07/2009 Routine general medical examination at [facility]*08/29/2009 11/26/2011 Class: Chronic Routine gynecological examination [Z01.419] 08/29/2009 11/26/2011 Class: Chronic Vitamin D d (more content not included)... [facility] 07-16-2023 Miscellaneous Notes Pharmacy electronically requests the following refill(s) Requested Prescriptions Pending Prescriptions Disp Refills metoprolol succinate ER (TOPROL XL) 25 mg 24 hr tablet [Pharmacy Med Name: Metoprolol Succinate ER 25MG TB24] 90 tablet 3 Sig: take 1 tablet by mouth every evening Loree Chen RN documented in this encounter [facility] 06-18-2023 Miscellaneous Notes Last Office Visit: 04/29/2023 Future Office Visit: 10/31/2022 Requested Prescriptions Pending Prescriptions Disp Refills omeprazole (PRILOSEC) 20 mg capsule 30 capsule 5 Sig: Take 1 capsule by mouth daily before breakfast. 1/2 hr before meal. Date of Last Labs: 04/29/2023 documented in this encounter [facility] 05-27-2023 Miscellaneous Notes [facility] phones requesting refills as follows: Requested Prescriptions Pending Prescriptions Disp Refills pramipexole (MIRAPEX) 0.5 mg tablet 30 tablet 5 Sig: Take 0.5 tablets by mouth daily at bedtime. DEBBY: 04/29/23 NOV: 10/31/23 Sahnell Estes LPN documented in this encounter [facility] 05-26-2023 Note HNO ID: [id number] Author: Loree Chen RN Service: ? Author [...] Loree Chen RN Reversal agent used:None LOT [id number] EXP 06/13/26 IV SITE: IV palced by nuclear tecnologist POST EXAM PIV STATUS: Discontinued by Caltrans Equipment Operator PATIENT DISCHARGED TO: Nuclear Medicine Department for post stress imaging A Diagnostic radioactive procedure has taken place, with no further precautions necessary other than routine body substance precautions. More information regarding radiation safety can be found using this link: [email or web address] tection %[email or web address]-%20Diagnostic%20Nuclear%20Medi cine%20Procedures.pdf SIGNATURE: Loree Chen RN PATIENT NAME:Brittnee Le DATE: 05/26/23 TIME: 12:20 PM [facility] 05-26-2023 Miscellaneous Notes TC to both patient and guardian who both verbalized understanding of providers message with no questions at this time. CHRIS Antunez ----- Message from Radha Batista APRN.HOSPITAL SUPERINTENDENT sent at 05/26/2023 2:00 PM EDT ----- Can please let patient/caregiver know that her stress testing was negative/normal. Radha Batista APRN.HOSPITAL SUPERINTENDENT documented in this encounter [facility] 05-26-2023 History of Present illness Narrative [...] Loree Chen RN Reversal agent used:None LOT [id number] EXP 06/13/26 IV SITE: IV palced by nuclear tecnologist POST EXAM PIV STATUS: Discontinued by Caltrans Equipment Operator PATIENT DISCHARGED TO: Nuclear Medicine Department for post stress imaging A Diagnostic radioactive procedure has taken place, with no further precautions necessary other than routine body substance precautions. More information regarding radiation safety can be found using this link: [email or web address] [email or web address]-%20Diagnostic%20Nuclear %20Medicine%20Procedures.pdf SIGNATURE: Loree Chen RN PATIENT NAME:Brittnee Le DATE: 05/26/23 TIME: 12:20 PM documented in this encounter [facility] 05-26-2023 Note HNO ID: [id number] Author: Sairna Lee RT(R) Service: Nuclear Medicine Author Type: [...] Discontinued PROCEDURE TYPE: NM Stress: 11.8 mCi [id number]-Glgzill was administered IV for Rest Imaging at 07:20 by Sarina Lee. 31.3 mCi Fk62q-Nwmcszy was administered IV for Stress Imaging at 08:31 by Sarina Lee. ADMINISTRATION TIME: PATIENT DISCHARGED TO: Ambulatory patient, left MI department area. A Diagnostic radioactive procedure has taken place, with no further precautions necessary other than routine body substance precautions. More information regarding radiation safety can be found using this link: [email or web address] tection %[email or web address]-%20Diagnostic%20Nuclear%20Medi cine%20Procedures.pdf SIGNATURE: RT Lemuel(R) PATIENT NAME: Brittnee Le DATE: May 26, 2023 TIME: 09:40 AM PAGER/CONTACT #: [facility] 05-26-2023 History of Present illness Narrative [...] Discontinued PROCEDURE TYPE: NM Stress: 11.8 mCi Vt34e-Rmqlavp was administered IV for Rest Imaging at 07:20 by Sarina Lee. 31.3 mCi Hs37r-Hzsrdgj was administered IV for Stress Imaging at 08:31 by Sarina Lee. ADMINISTRATION TIME: PATIENT DISCHARGED TO: Ambulatory patient, left MI department area. A Diagnostic radioactive procedure has taken place, with no further precautions necessary other than routine body substance precautions. More information regarding radiation safety can be found using this link: [email or web address] [email or web address]-%20Diagnostic%20Nuclear %20Medicine%20Procedures.pdf SIGNATURE: MARILUZ Hdez) PATIENT NAME: Brittnee Le DATE: May 26, 2023 TIME: 09:40 AM PAGER/CONTACT #: documented in this encounter [facility] 05-23-2023 Miscellaneous Notes [facility] asking pcp to send order for a generic lancet for patient. Reports patient unable to use the one touch lancets with the system she is using now. Pended. Last appt in pcp office: 12-20-22 Next appt: 10-31-23 documented in this encounter [facility] 05-08-2023 Miscellaneous Notes Patient was made aware of the results. Patient verbalizes understanding. Nisha Oneill Ma ----- Message from Radha Batista APRN.HOSPITAL SUPERINTENDENT sent at 05/07/2023 5:32 PM EDT ----- Can please let patient/caser know that her blood count was improved and stable. Radha Batista APRN.CNP documented in this encounter [facility] 04-29-2023 Note HNO ID: [id number] Author: Radha Batista APRN.HOSPITAL SUPERINTENDENT Service: ? Author Type: Nurse Practitioner Type: Progress Notes Filed: 04/29/2023 5:00 PM Note Text: This is a 57 year old female who presents today with: Patient presents with: 6 Month Exam HISTORY OF PRESENT ILLNESS: Brittnee Le is a 57 year old female. Patient presents with: 6 Month Exam Presents today w/ social media content specialist. Pt presents today for follow-up. Refers that [...] Controlled w/ PPI. Mood: Presents with social media content specialist. Refers that there has been some medication adjustments by psychiatry. Refers patient refers that she has been hearing more voices. Concern because this could impact her living situation. She has been having some problems with fatigue. dust box worker disclosed that patient is afraid that [...] HISTORY Diagnosis Date Bilateral pneumonia 07/23/2018 Admit [facility]: pneumococcal suspected, neg culture. 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 [facility] 04-29-2023 Instructions Radha Batista APRN.PAVITHRA - 04/29/2023 3:22 PM EDT Get the labwork. Get the stool sample for hidden blood. Schedule the stress testing. We'll let you know when I receive the lab results back. documented in this encounter [facility] 04-29-2023 History of Present illness Narrative This is a 57 year old female who presents today with: Patient presents with: 6 Month Exam HISTORY OF PRESENT ILLNESS: Brittnee Le is a 57 year old female. Patient presents with: 6 Month Exam Presents today w/ social media content specialist. Pt presents today for follow-up. Refers that [...] Controlled w/ PPI. Mood: Presents with social media content specialist. Refers that there has been some medication adjustments by psychiatry. Refers patient refers that she has been hearing more voices. Concern because this could impact her living situation. She has been having some problems with fatigue. dust box worker disclosed that patient is afraid that [...] HISTORY Diagnosis Date Bilateral pneumonia 07/23/2018 Admit [facility]: pneumococcal suspected, neg culture. 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 [facility], pt was on metformin for a [...] daily at bedtime. Lancing Device with Lancets (Friend.ly PLUS LANC DEV) Check blood sugars twice [...] Inhalation as instructed once daily. Per Dr. James Chambers,Dana Kern,[facility] Patient to be measured for correct size. [...] MG/5 ML INTRAVENOUS SYRINGE - INSERT IV (MD,[place]) - IV DISCONTINUE Will also forward note to pt's movie actor for review. 2. Weight loss - ICD9: [...] needed for worsening/no improvement. Radha Batista APRN.PAVITHRA I spent a total of 50 minutes on the date of the service which included preparing to see the patient, [id number] patient care, completing clinical documentation, obtaining and/or reviewing separately obtained history, performing a medically appropriate examination, counseling and educating the patient/family/caregiver, and ordering medications, tests, or procedures. documented in this encounter [facility] 02-26-2023 Miscellaneous Notes [facility] phones requesting refills as follows: Requested Prescriptions Pending Prescriptions Disp Refills potassium chloride ER (KLOR-CON) 20 mEq tablet 30 tablet 5 Sig: Take 1 tablet by mouth once daily. DEBBY: 12/20/22 (VV) NOV: 03/12/23 Last Refill: 09/11/22 #30 5 refills Shanell Estes LPN documented in this encounter [facility] 02-14-2023 Miscellaneous Notes Patient has been [...] Maye Ferrer LPN documented in this encounter [facility] 01-30-2023 Miscellaneous Notes Patient has been [...] Anusha Hansen RN documented in this encounter [facility] 12-20-2022 Note HNO ID: [id number] Author: Boris Vance MD Service: ? Author [...] visit. Either the patient or their legal group sales representative has been informed of the risks [...] daily. Location: face Lancing Device with Lancets (FID3 DELICA PLUS LANC DEV) Check blood sugars [...] one puff o (more content not included)... [facility] 12-09-2022 Miscellaneous Notes Patient has been identified [...] Alma Smart RN documented in this encounter [facility] 10-08-2022 Miscellaneous Notes Last Office Visit: 08/28/2022 Future Office Visit: 03/12/2023 Requested Prescriptions Pending Prescriptions Disp Refills insulin needles, DISPOSABLE, (PEN NEEDLE) 31 gauge x 02/25 100 Each 11 Sig: Use one needle per dose. Once per day. Date of Last Labs: 08/21/2022 documented in this encounter [facility] 10-04-2022 Miscellaneous Notes Patient has been identified by name and date of : Yes Last office visit in this department: 08/28/2022 RX INSTRUCTIONS: Patient aware RX will be sent to pharmacy. No need to notify patient. Patient phones requesting refills as follows: Requested Prescriptions No prescriptions requested or ordered in this encounter Please review and advise. Shanell Zuniga documented in this encounter [facility] 09-11-2022 Miscellaneous Notes [facility] calling for refills DEBBY: 08/28/22 NOV: 03/12/23 Last Refill: Theresa 10/09/21 #30 11 refills Vit D3 10/09/21 #30 11 refills Potassium chl: 03/27/22 #30 5 refills Shanell Estes LPN documented in this encounter [facility] 08-30-2022 Miscellaneous Notes Patient has been [...] Maye Ferrer LPN documented in this encounter [facility] 08-28-2022 Instructions Radha Batista APRN.PAVITHRA - 08/28/2022 2:39 PM EST Continue same medications. Try holding milk products for a week and see if that helps. Try the eye gel at night. Start the metronidazole cream. You can try the tylenol/ibuprofen as needed for back pain. Also can try some heat and massage. Labs and recheck in 6 months. documented in this encounter [facility] 08-28-2022 History of Present illness Narrative [...] HISTORY Diagnosis Date Bilateral pneumonia 07/23/2018 Admit [facility]: pneumococcal suspected, neg culture. 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 [facility], pt was on metformin for a [...] 500mg at bedtime Lancing Device with Lancets (Rowbot SystemsTOUCH DELICA PLUS LANC DEV) Check blood sugars [...] Comment: marinarcisoan- Teen yrs, but not now EXAM: BP [...] as needed for worsening/no improvement. Radha Batista APRN.HOSPITAL SUPERINTENDENT documented in this encounter [facility] 08-19-2022 Miscellaneous Notes Patient has been identified by name and date of : Yes Pharmacy phones for refill(s): Requested Prescriptions Pending Prescriptions Disp Refills Lancing Device with Lancets (Rowbot SystemsTOUCH DELICA PLUS LANC DEV) 100 Each 5 [...] Brandy Mark LPN documented in this encounter [facility] 08-15-2022 Miscellaneous Notes Patient has been [...] Keila Ca Pss documented in this encounter [facility] 08-13-2022 Miscellaneous Notes Patient's request for [...] Zaira Humphreys LPN documented in this encounter [facility] 08-08-2022 Instructions Zaira García APRN.HOSPITAL SUPERINTENDENT - 08/08/2022 1:55 PM EDT [facility] [address] [place] [id number] Emergency Department Diagnosis: Assessment CELLULITIS: Your exam [...] you are not current with your inmunizations.CONJUNCTIVITIS ([facility]) BASIC INFORMATION DESCRIPTION: An inflammation of [...] virus or allergy. At this point, an certified public accountant may need to culture the cause or [...] -Vision is affected. documented in this encounter [facility] 08-08-2022 History of Present illness Narrative [...] to 4 months. Patient resides in a care home, ROS and HPI limited related to cognitive. Information supplemented by coat presser of care home. The history is provided by the patient and a caregiver. The history is limited by a developmental delay. No speech language specialist was used. Eye Problem This is a [...] HISTORY Diagnosis Date Bilateral pneumonia 07/23/2018 Admit [facility]: pneumococcal suspected, neg culture. 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 Per Dr. James Chambers,Knee,Regular,[facility] Patient to be measured for correct size. [...] Zaira García APRN.CNP documented in this encounter [facility] 07-05-2022 Instructions Zaira García APRN.CNP - 07/05/2022 1:15 PM EDT Keep the area free of further injury Topical antibiotic ointment Follow up with podiatry to have toenails clipped. documented in this encounter [facility] 07-05-2022 History of Present illness Narrative Images from the original note were not included. This note was created using [employer]. Subjective Brittnee Le is a 56 year [...] Presents today with an aid from her care home concerns for it being infected Denies pain. Denies numbness or tingling Sees Dr. Villavicencio for podiatry at [place], care home tried to call today, but they are closed. The history is provided by the patient. No speech language specialist was used. Pain (foot) Pain location: right [...] HISTORY Diagnosis Date Bilateral pneumonia 07/23/2018 Admit [facility]: pneumococcal suspected, neg culture. + rhinovirus Constipation COPD (chronic obstructive pulmonary disease) ([facility]) Diabetes 1.5, managed as type 2 (HCC) found at [facility], pt was on metformin for a [...] mmHg Dx: I50.31 COMPOUNDED PRESCRIPTION BIPAP of 09/[address] Ramirez blood [...] mouth once daily. Lancing Device with Lancets (FID3 DELICA PLUS LANC DEV) Check blood sugars [...] be seen by Dr. Cintron. Zaira García APRN.PAVITHRA documented in this encounter [facility] 06-20-2022 Miscellaneous Notes Patient has been [...] Priya White RN documented in this encounter [facility] 05-08-2022 Miscellaneous Notes [facility] reports the hospital in [place] only prescribed a month supply of the pended medications. Reports when the hospital sent Rx's for the month supply, it cancelled out pcp's Rx's. Will need new Rx's. Note: miralax was changed to packets and instructions state daily. Ferrous gluconate was changed to Ferrous sulfate. [facility] asking to please send omar, so patient will have to take tomorrow. documented in this encounter [facility] 05-07-2022 Miscellaneous Notes [facility] notified. Frank Joya LPN Continue meds. Patient was released 04/16/2022 from [facility], Dr. Kessler called in RX Metformin 500mg, 2 tablets BID & Ferrous Sulfate 325mg, 1 tablet once daily. [facility] is asking if Dr. Vance wants Patient to continue taking Metformin & Ferrous Sulfate. Please advise. Chiara Suárez LPN documented in this encounter [facility] 05-02-2022 Miscellaneous Notes Called pharmacy and had tech check profile. They do have refill on metformin and iron. Confirmed with her these were not new orders. [facility] pharmacy calling stating patient was in [facility] and has been starteed o nthe follow medications. Please call in the following prescriptions: Atorvastatin 10 mg one tablet at bedtime Iron 325 mg one tablet twice daily Metformin 500 mg two tablets twice daily Patient uses pharmacy on file. documented in this encounter [facility] 03-27-2022 Miscellaneous Notes Last office visit: [...] patient. Chica Todd documented in this encounter [facility] 03-27-2022 Instructions Radha Batista APRN.HOSPITAL SUPERINTENDENT - 03/27/2022 2:34 PM EDT 1. Apply the triamcinolone ointment twice daily to the irritated skin from the cpap straps. Leave open to air during the day. In the evening, use guaze between face and cpap straps until healed. 2. Notify provider if no better or any worsening. documented in this encounter [facility] 03-27-2022 History of Present illness Narrative [...] HISTORY Diagnosis Date Bilateral pneumonia 07/23/2018 Admit [facility]: pneumococcal suspected, neg culture. 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 Per Dr. James Izquierdo Stocking,Knee,Regular,[facility] Patient to be measured for correct size. 20-30 mmHg Dx: I50.31 Insulin Syringe-Needle U-100 (BD INSULIN SYRINGE) 1 mL 28 gauge x 1/2 syrg Use as directed daily COMPOUNDED PRESCRIPTION BIPAP of 12/8 on 3L oxygen per Dr. Ramirez Lancets [...] Radha Batista APRN.PAVITHRA documented in this encounter [facility] 01-30-2022 Instructions Radha Batista APRN.PAVITHRA - 01/30/2022 1:40 PM EDT 1. Moist heat/ice to the affected area, as discussed. 2. Ibuprofen 200-400 mg every 8 hours as needed for pain. 3. Stretching and massage, as discussed. 4. Let us know if no better or any worsening. documented in this encounter [facility] 01-30-2022 History of Present illness Narrative [...] HISTORY Diagnosis Date Bilateral pneumonia 07/23/2018 Admit [facility]: pneumococcal suspected, neg culture. 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 Lancing Device with Lancets (FID3 DELICA PLUS LANC DEV) Check blood sugars [...] Wt 85.6 kg (188 lb 12.8 oz) LMP 09/12/2017 BMI 35.67 kg/m PHYSICAL EXAM: General [...] needed for worsening/no improvement. Radha Batista APRN.PAVITHRA The patient indicates understanding of these issues and agrees with the plan. This note was partially generated using CoreFlow voice recognition system. Note was reviewed for accuracy. There may be minor misspellings or grammar miscues with [employer] voice recognition. documented in this encounter [facility] 01-29-2022 Miscellaneous Notes Haylee notified, appt scheduled. Frank Joya LPN Needs an appointment to have back pain evaluated. Radha Batista APRN.PAVITHRA Haylee, case technician/social media content specialist for [facility] calling and states that pt is having muscle/sciatic pain. Pt lives in a care home. This pain is upsetting, agitating an working on pt's mental health. Pt was on Tylenol but was discontinued due to fatty liver. Haylee is requesting something pt can take for the above pain, [id number] be sent to [facility] omar if possible. Even though OTC they would still need to have a prescription sent. Haylee will be calling back later to schedule an apt for pt. Please advise Haylee. Brandy Mark LPN documented in this encounter [facility] 01-14-2022 History of Present illness Narrative Patient presents with: 6 Month Exam HPI: Patient presents today for office visit for follow up. Accompanies by her caser. Seeing psych. Recently saw cardiology for tachycardia. [...] take as directed. Lancing Device with Lancets (Friend[employer] PLUS LANC DEV) Check blood sugars twice [...] HISTORY Diagnosis Date Bilateral pneumonia 07/23/2018 Admit [facility]: pneumococcal suspected, neg culture. 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 Villavicencio in [place]. Saw in August [facility] SCREENING-will check [...] follow with cardiology. 2. SVT (supraventricular tachycardia) (HCC) - ICD9: 427.89, ICD10: I47.1 - as above. 3. Acute diastolic CHF (congestive heart failure) (HCC) - ICD9: 428.31, 428.0, ICD10: I50.31 - no signs currently. 4. Chronic obstructive pulmonary disease, unspecified COPD type ([facility]) - ICD9: 496, ICD10: J44.9 - per [...] - ICD9: 295.42, ICD10: F20.81 - per [facility] 9. Vitamin D deficiency - ICD9: 268.9, ICD10: E55.9 - will follow. 10. Advance care planning - ICD9: V65.49, ICD10: Z71.89 - done. Boris Vance RTO in six months and prn. documented in this encounter [facility] 01-14-2022 Miscellaneous Notes Patient has been [...] Maye Ferrer LPN documented in this encounter [facility] 01-11-2022 Miscellaneous Notes Patient has been [...] Alma Smart RN documented in this encounter [facility] documented as of this encounter (statuses as of 01/14/2022) [facility] History of Past illness Narrative* Problem [...] Routine gynecological examination 08/29/2009 11/26/2011 Overview: [facility], [facility] [place] DM w/o Complication Type II 11/08/200802/10 Other abnormal glucose 8 Overview: found at [facility], pt was on metformin for a while but taken off - pt never told if she had DM or not A1c 6.5% as of documented as of this encounter (statuses as of 01/29/2022) [facility] History of Past illness Narrative* Problem [...] check Routine gynecological examination 08/29/2009 11/26/2011 Overview: [facility], [facility] [place] w/o Complication Type II 11/08/200802/10 Other abnormal glucose 8 Overview: found at [facility], pt was on metformin for a while but taken off - pt never told if she had DM or not A1c 6.5% as of documented as of this encounter (statuses as of 01/30/2022) [facility] History of Past illness Narrative* Problem [...] check Routine gynecological examination 08/29/2009 11/26/2011 Overview: [facility], [facility] [place] w/o Complication Type II 11/08/200802/10 Other abnormal glucose 8 Overview: found at [facility], pt was on metformin for a while but taken off - pt never told if she had DM or not A1c 6.5% as of documented as of this encounter (statuses as of 03/27/2022) [facility] History of Past illness Narrative* Problem [...] check Routine gynecological examination 08/29/2009 11/26/2011 Overview: [facility], [facility] [place] DM w/o Complication Type II 11/08/200802/10 Other abnormal glucose 8 Overview: found at [facility], pt was on metformin for a while but taken off - pt never told if she had DM or not A1c 6.5% as of documented as of this encounter (statuses as of 05/02/2022) [facility] History of Past illness Narrative* Problem [...] Routine gynecological examination 08/29/2009 11/26/2011 Overview: [facility], [facility] [place] DM w/o Complication Type II 11/08/200802/10 Other abnormal glucose 8 Overview: found at [facility], pt was on metformin for a while but taken off - pt never told if she had DM or not A1c 6.5% as of documented as of this encounter (statuses as of 05/07/2022) [facility] History of Past illness Narrative* Problem [...] check Routine gynecological examination 08/29/2009 11/26/2011 Overview: [facility], [facility] [place] DM w/o Complication Type II 11/08/200802/10 Other abnormal glucose 8 Overview: found at [facility], pt was on metformin for a while but taken off - pt never told if she had DM or not A1c 6.5% as of documented as of this encounter (statuses as of 05/08/2022) [facility] History of Past illness Narrative* Problem [...] check Routine gynecological examination 08/29/2009 11/26/2011 Overview: [facility], [facility] [place] w/o Complication Type II 11/08/200802/10 Other abnormal glucose 8 Overview: found at [facility], pt was on metformin for a while but taken off - pt never told if she had DM or not A1c 6.5% as of documented as of this encounter (statuses as of 06/20/2022) [facility] History of Past illness Narrative* Problem [...] check Routine gynecological examination 08/29/2009 11/26/2011 Overview: [facility], [facility] [place] w/o Complication Type II 11/08/200802/10 Other abnormal glucose 8 Overview: found at [facility], pt was on metformin for a while but taken off - pt never told if she had DM or not A1c 6.5% as of documented as of this encounter (statuses as of 07/05/2022) [facility] History of Past illness Narrative* Problem [...] check Routine gynecological examination 08/29/2009 11/26/2011 Overview: [facility], [facility] [place] DM w/o Complication Type II 11/08/200802/10 Other abnormal glucose 8 Overview: found at [facility], pt was on metformin for a while but taken off - pt never told if she had DM or not A1c 6.5% as of documented as of this encounter (statuses as of 08/08/2022) [facility] History of Past illness Narrative* Problem [...] check Routine gynecological examination 08/29/2009 11/26/2011 Overview: [facility], [facility] [place] w/o Complication Type II 11/08/200802/10 Other abnormal glucose 8 Overview: found at [facility], pt was on metformin for a while but taken off - pt never told if she had DM or not A1c 6.5% as of documented as of this encounter (statuses as of 08/12/2022) [facility] History of Past illness Narrative* Problem [...] check Routine gynecological examination 08/29/2009 11/26/2011 Overview: [facility], [facility] [place] DM w/o Complication Type II 11/08/200802/10 Other abnormal glucose 8 Overview: found at [facility], pt was on metformin for a while but taken off - pt never told if she had DM or not A1c 6.5% as of documented as of this encounter (statuses as of 08/15/2022) [facility] History of Past illness Narrative* Problem [...] check Routine gynecological examination 08/29/2009 11/26/2011 Overview: [facility], [facility] [place] DM w/o Complication Type II 11/08/200802/10 Other abnormal glucose 8 Overview: found at [facility], pt was on metformin for a while but taken off - pt never told if she had DM or not A1c 6.5% as of documented as of this encounter (statuses as of 08/15/2022) [facility] History of Past illness Narrative* Problem [...] Routine gynecological examination 08/29/2009 11/26/2011 Overview: [facility], [facility] [place] DM w/o Complication Type II 11/08/200802/10 Other abnormal glucose 8 Overview: found at [facility], pt was on metformin for a while but taken off - pt never told if she had DM or not A1c 6.5% as of documented as of this encounter (statuses as of 08/19/2022) [facility] History of Past illness Narrative* Problem [...] check Routine gynecological examination 08/29/2009 11/26/2011 Overview: [facility], [facility] [place] DM w/o Complication Type II 11/08/200802/10 Other abnormal glucose 8 Overview: found at [facility], pt was on metformin for a while but taken off - pt never told if she had DM or not A1c 6.5% as of documented as of this encounter (statuses as of 08/29/2022) [facility] History of Past illness Narrative* Problem [...] check Routine gynecological examination 08/29/2009 11/26/2011 Overview: [facility], [facility] [place] DM w/o Complication Type II 11/08/200802/10 Other abnormal glucose 8 Overview: [facility], pt was on metformin for a while but taken off - pt never told if she had DM or not A1c 6.5% as of documented as of this encounter (statuses as of 08/30/2022) [facility] History of Past illness Narrative* Problem [...] Routine gynecological examination 08/29/2009 11/26/2011 Overview: [facility], [facility] [place] DM w/o Complication Type II 11/08/200802/10 Other abnormal glucose 8 Overview: found at [facility], pt was on metformin for a while but taken off - pt never told if she had DM or not A1c 6.5% as of documented as of this encounter (statuses as of 09/11/2022) [facility] History of Past illness Narrative* Problem [...] check Routine gynecological examination 08/29/2009 11/26/2011 Overview: [facility], [facility] [place] w/o Complication Type II 11/08/200802/10 Other abnormal glucose 8 Overview: found at [facility], pt was on metformin for a while but taken off - pt never told if she had DM or not A1c 6.5% as of documented as of this encounter (statuses as of 10/06/2022) [facility] History of Past illness Narrative* Problem [...] check Routine gynecological examination 08/29/2009 11/26/2011 Overview: [facility], [facility] [place] w/o Complication Type II 11/08/200802/10 Other abnormal glucose 8 Overview: found at [facility], pt was on metformin for a while but taken off - pt never told if she had DM or not A1c 6.5% as of documented as of this encounter (statuses as of 10/13/2022) [facility] History of Past illness Narrative* Problem [...] examination 08/29/2009 11/26/2011 Overview: [facility], [facility] [place] DM w/o Complication Type II 11/08/200802/10 Other abnormal glucose 8 Overview: found at [facility], pt was on metformin for a while but taken off - pt never told if she had DM or not A1c 6.5% as of documented as of this encounter (statuses as of 12/09/2022) [facility] History of Past illness Narrative* Problem [...] check Routine gynecological examination 08/29/2009 11/26/2011 Overview: [facility], [facility] [place] DM w/o Complication Type II 11/08/200802/10 Other abnormal glucose 8 Overview: found at [facility], pt was on metformin for a while but taken off - pt never told if she had DM or not A1c 6.5% as of documented as of this encounter (statuses as of 01/30/2023) [facility] History of Past illness Narrative* Problem [...] check Routine gynecological examination 08/29/2009 11/26/2011 Overview: [facility], [facility] [place] w/o Complication Type II 11/08/200802/10 Other abnormal glucose 8 Overview: found at [facility], pt was on metformin for a while but taken off - pt never told if she had DM or not A1c 6.5% as of documented as of this encounter (statuses as of 02/14/2023) [facility] History of Past illness Narrative* Problem [...] check Routine gynecological examination 08/29/2009 11/26/2011 Overview: [facility], [facility] [place] DM w/o Complication Type II 11/08/200802/10 Other abnormal glucose 8 Overview: found at [facility], pt was on metformin for a while but taken off - pt never told if she had DM or not A1c 6.5% as of documented as of this encounter (statuses as of 02/26/2023) [facility] History of Past illness Narrative* Problem [...] check Routine gynecological examination 08/29/2009 11/26/2011 Overview: [facility], [facility] [place] DM w/o Complication Type II 11/08/2008 02/22/2014 Other abnormal glucose 04/29 Overview: found at [facility], pt was on metformin for a while but taken off - pt never told if she had DM or not A1c 6.5% as of documented as of this encounter (statuses as of 04/30/2023) [facility] of Past illness Narrative* Problem [...] check Routine gynecological examination 08/29/2009 11/26/2011 Overview: [facility], [facility] [place] w/o Complication Type II 11/08/2008 02/22/2014 Other abnormal glucose 04/29 Overview: found at [facility], pt was on metformin for a while but taken off - pt never told if she had DM or not A1c 6.5% as of documented as of this encounter (statuses as of 05/08/2023) [facility] of Past illness Narrative* Problem [...] Routine gynecological examination 08/29/2009 11/26/2011 Overview: [facility], [facility] [place] w/o Complication Type II 11/08/2008 02/22/2014 Other abnormal glucose 04/29 Overview: found at [facility], pt was on metformin for a while but taken off - pt never told if she had DM or not A1c 6.5% as of documented as of this encounter (statuses as of 05/24/2023) [facility] of Past illness Narrative* Problem [...] check Routine gynecological examination 08/29/2009 11/26/2011 Overview: [facility], [facility] [place] DM w/o Complication Type II 11/08/2008 02/22/2014 Other abnormal glucose 04/29 Overview: found at [facility], pt was on metformin for a while but taken off - pt never told if she had DM or not A1c 6.5% as of documented as of this encounter (statuses as of 05/26/2023) [facility] of Past illness Narrative* Problem [...] check Routine gynecological examination 08/29/2009 11/26/2011 Overview: [facility], [facility] [place] DM w/o Complication Type II 11/08/2008 02/22/2014 Other abnormal glucose 04/29 Overview: found at [facility], pt was on metformin for a while but taken off - pt never told if she had DM or not A1c 6.5% as of documented as of this encounter (statuses as of 05/27/2023) [facility] History of Past illness Narrative* Problem [...] check Routine gynecological examination 08/29/2009 11/26/2011 Overview: [facility], [facility] [place] w/o Complication Type II 11/08/2008 02/22/2014 Other abnormal glucose 04/29 Overview: found at [facility], pt was on metformin for a while but taken off - pt never told if she had DM or not A1c 6.5% as of documented as of this encounter (statuses as of 05/28/2023) [facility] History of Past illness Narrative* Problem [...] check Routine gynecological examination 08/29/2009 11/26/2011 Overview: [facility], [facility] [place] w/o Complication Type II 11/08/2008 02/22/2014 Other abnormal glucose 04/29 Overview: found at [facility], pt was on metformin for a while but taken off - pt never told if she had DM or not A1c 6.5% as of documented as of this encounter (statuses as of 06/18/2023) [facility] of Past illness Narrative* Problem [...] check Routine gynecological examination 08/29/2009 11/26/2011 Overview: [facility], [facility] [place] w/o Complication Type II 11/08/2008 02/22/2014 Other abnormal glucose 04/29 Overview: found at [facility], pt was on metformin for a while but taken off - pt never told if she had DM or not A1c 6.5% as of documented as of this encounter (statuses as of 07/17/2023) [facility] of Past illness Narrative* Problem [...] check Routine gynecological examination 08/29/2009 11/26/2011 Overview: [facility], [facility] [place] DM w/o Complication Type II 11/08/2008 02/22/2014 Other abnormal glucose 04/29 Overview: found at [facility], pt was on metformin for a while but taken off - pt never told if she had DM or not A1c 6.5% as of documented as of this encounter (statuses as of 07/21/2023) [facility] of Past illness Narrative* Problem [...] check Routine gynecological examination 08/29/2009 11/26/2011 Overview: [facility], [facility] [place] DM w/o Complication Type II 11/08/2008 02/22/2014 Other abnormal glucose 04/29 Overview: found at [facility], pt was on metformin for a while but taken off - pt never told if she had DM or not A1c 6.5% as of documented as of this encounter (statuses as of 08/12/2023) [facility] of Past illness Narrative* Problem [...] Routine gynecological examination 08/29/2009 11/26/2011 Overview: [facility], [facility] [place] w/o Complication Type II 11/08/2008 02/22/2014 Other abnormal glucose 04/29 Overview: found at [facility], pt was on metformin for a while but taken off - pt never told if she had DM or not A1c 6.5% as of documented as of this encounter (statuses as of 08/16/2023) [facility] of Past illness Narrative* Problem [...] check Routine gynecological examination 08/29/2009 11/26/2011 Overview: [facility], [facility] [place] w/o Complication Type II 11/08/2008 02/22/2014 Other abnormal glucose 04/29 Overview: found at [facility], pt was on metformin for a while but taken off - pt never told if she had DM or not A1c 6.5% as of documented as of this encounter (statuses as of 08/20/2023) [facility] of Past illness Narrative* Problem [...] check Routine gynecological examination 08/29/2009 11/26/2011 Overview: [facility], [facility] [place] w/o Complication Type II 11/08/2008 02/22/2014 Other abnormal glucose 04/29 Overview: found at [facility], pt was on metformin for a while but taken off - pt never told if she had DM or not A1c 6.5% as of documented as of this encounter (statuses as of 08/21/2023) [facility] of Past illness Narrative* Problem [...] Routine gynecological examination 08/29/2009 11/26/2011 Overview: [facility], [facility] [place] w/o Complication Type II 11/08/2008 02/22/2014 Other abnormal glucose 04/29 Overview: found at [facility], pt was on metformin for a while but taken off - pt never told if she had DM or not A1c 6.5% as of documented as of this encounter (statuses as of 08/28/2023) [facility] of Past illness Narrative* Problem [...] check Routine gynecological examination 08/29/2009 11/26/2011 Overview: [facility], [facility] Silver DM w/o Complication Type II 11/08/2008 02/22/2014 Other abnormal glucose 04/29 Overview: found at [facility], pt was on metformin for a while but taken off - pt never told if she had DM or not A1c 6.5% as of documented as of this encounter (statuses as of 08/29/2023) [facility] History of Past illness Narrative* Problem [...] check Routine gynecological examination 08/29/2009 11/26/2011 Overview: [facility], [facility] [place] DM w/o Complication Type II 11/08/2008 02/22/2014 Other abnormal glucose 04/29 Overview: found at [facility], pt was on metformin for a while but taken off - pt never told if she had DM or not A1c 6.5% as of documented as of this encounter (statuses as of 09/01/2023) [facility] History of Past illness Narrative* Problem [...] check Routine gynecological examination 08/29/2009 11/26/2011 Overview: [facility], [facility] Silver DM w/o Complication Type II 11/08/2008 02/22/2014 Other abnormal glucose 04/29 Overview: found at [facility], pt was on metformin for a while but taken off - pt never told if she had DM or not A1c 6.5% as of documented as of this encounter (statuses as of 09/10/2023) [facility] History of Past illness Narrative* Problem [...] check Routine gynecological examination 08/29/2009 11/26/2011 Overview: [facility], [facility] Silver DM w/o Complication Type II 11/08/2008 02/22/2014 Other abnormal glucose 04/29 Overview: found at [facility], pt was on metformin for a while but taken off - pt never told if she had DM or not A1c 6.5% as of documented as of this encounter (statuses as of 09/10/2023) [facility] History of Past illness Narrative* Problem [...] check Routine gynecological examination 08/29/2009 11/26/2011 Overview: [facility], [facility] Silver DM w/o Complication Type II 11/08/2008 02/22/2014 Other abnormal glucose 04/29 Overview: found at [facility], pt was on metformin for a while but taken off - pt never told if she had DM or not A1c 6.5% as of documented as of this encounter (statuses as of 09/23/2023) [facility] History of Past illness Narrative* Problem [...] check Routine gynecological examination 08/29/2009 11/26/2011 Overview: [facility], [facility] [place] DM w/o Complication Type II 11/08/2008 02/22/2014 Other abnormal glucose 04/29 Overview: found at [facility], pt was on metformin for a while but taken off - pt never told if she had DM or not A1c 6.5% as of documented as of this encounter (statuses as of 11/20/2023) [facility] History of Past illness Narrative* Problem [...] check Routine gynecological examination 08/29/2009 11/26/2011 Overview: [facility], [facility] [place] DM w/o Complication Type II 11/08/2008 02/22/2014 Other abnormal glucose 04/29 Overview: found at [facility], pt was on metformin for a while but taken off - pt never told if she had DM or not A1c 6.5% as of documented as of this encounter (statuses as of 12/02/2023) [facility] History of Past illness Narrative* Problem Noted Date Resolved Date Pneumonia of both upper lobes due to infectious organism 08/06/2018 08/06/2018 Type 2 diabetes mellitus with renal manifestatio ns 10/29/2013 11/07/2017 Tobacco abuse 09/07/2012 11/07/2016 Routine general medical exam ination at a health care facility 08/29/2009 11/26/2011 Overview: 08/29/2009, from [facility] 05/03/2011, yearly check Routine gynecological examination 08/29/2009 11/26/2011 Overview: [facility], [facility] [place] DM w/o Complication Type II 11/08/200802/10 Other abnormal glucose 8 Overview: found at [facility], pt was on metformin for a while but taken off - pt never told if she had DM or not A1c 6.5% as of documented as of this encounter (statuses as of 01/11/2022) [facility] History of Past illness Narrative* Problem Noted Date Resolved Date Pneumonia of both upper lobes due to infectious organism 08/06/2018 08/06/2018 Type 2 diabetes mellitus with renal manifestatio ns 10/29/2013 11/07/2017 Tobacco abuse 09/07/2012 11/07/2016 Routine general medical exam ination at a health care facility 08/29/2009 11/26/2011 Overview: 08/29/2009, from [facility] 05/03/2011, yearly check Routine gynecological examination 08/29/2009 11/26/2011 Overview: [facility], [facility] [place] DM w/o Complication Type II 11/08/200802/10 Other abnormal glucose 8 Overview: [facility], pt was on metformin for a while but taken off - pt never told if she had DM or not A1c 6.5% as of documented as of this encounter (statuses as of 01/14/2022) [facility] Diagnosis Chronic constipation Unspecified constipation [facility] Chronic idiopathic constipation Unspecified constipation Iron deficiency anemia, unspecified iron deficiency anemia type [facility] Diagnosis Tachycardia- Primary Tachycardia, unspecified SVT (supraventricular tachycardia) ([facility]) Other specified cardiac dysrhythmias Acute diastolic CHF (congestive heart failure) ([facility]) Acute diastolic heart failure Chronic obstructive pulmonary disease, unspecified COPD type ([facility]) LIDA (obstructive sleep apnea) Obstructive sleep apnea (adult) (pediatric) Water intoxication Other fluid overload Type 2 diabetes mellitus with diabetic nephropathy, with long-term current use of insulin ([facility]) Schizophreniform disorder, chronic condition ([facility]) Schizophreniform disorder, chronic condition Vitamin D deficiency Unspecified vitamin D deficiency Advance care planning Other specified counseling [facility] Diagnosis Right hip pain- Primary Pain in joint, pelvic region and thigh [facility] Diagnosis Skin irritation- Primary Unspecified disorder of skin and subcutaneous tissue Rosacea [facility] Diagnosis Chronic constipation Unspecified constipation [facility] Diagnosis Restless leg syndrome Restless legs syndrome (RLS) [facility] Diagnosis Injury of toenail of right foot, initial encounter- Primary [facility] Diagnosis Conjunctivitis of left eye, unspecified conjunctivitis type- Primary Facial infection Other specified infectious and parasitic diseases [facility] Diagnosis Encounter for screening mammogram for breast cancer [facility]* Diagnosis GERD without esophagitis Esophageal reflux Epigastric pain Abdominal pain, epigastric [facility]* Diagnosis Type 2 diabetes mellitus with diabetic nephropathy, with long-term current use of insulin (HCC)- Primary Schizophreniform disorder, chronic condition (HCC) Schizophreniform disorder, chronic condition Hyperlipidemia, unspecified hyperlipidemia type LIDA (obstructive sleep apnea) Obstructive sleep apnea (adult) (pediatric) Rosacea Upper back pain Gassiness Flatulence, eructation, and gas pain documented in this encounter [facility] note* Diagnosis Hyperlipidemia, unspecified hyperlipidemia type documented in this encounter [facility] note* Diagnosis Type 2 diabetes mellitus with diabetic nephropathy, with long-term current use of insulin (HCC) documented in this encounter [facility] note* Diagnosis GERD without esophagitis Esophageal reflux Epigastric pain Abdominal pain, epigastric documented in this encounter [facility] note* Diagnosis COVID-19 documented in this encounter [facility] note* Diagnosis Chest pain, unspecified type- Primary Weight loss Loss of weight Type 2 diabetes mellitus with diabetic nephropathy, with long-term current use of insulin (HCC) Hyperlipidemia, unspecified hyperlipidemia type GERD without esophagitis Esophageal reflux Acute diastolic CHF (congestive heart failure) (HCC) Acute diastolic heart failure Schizophreniform disorder, chronic condition (HCC) Schizophreniform disorder, chronic condition Fatigue, unspecified type documented in this encounter [facility] note* Diagnosis Tachycardia- Primary Tachycardia, unspecified documented in this encounter [facility] note* Diagnosis Restless leg syndrome Restless legs syndrome (RLS) documented in this encounter [facility] note* Diagnosis Encounter for screening mammogram for breast cancer [facility] Diagnosis Hyperlipidemia, unspecified hyperlipidemia type documented in this encounter [facility] note* Diagnosis Type 2 diabetes mellitus with diabetic nephropathy, with long-term current use of insulin (HCC) [facility]* Diagnosis Itching in the vaginal area- Primary Pruritus of genital organs [facility]* Diagnosis Type 2 diabetes mellitus with diabetic nephropathy, with long-term current use of insulin (HCC)- Primary [facility]* Diagnosis Primary hypertension- Primary Unspecified essential hypertension Pure hypercholesterolemia SVT (supraventricular tachycardia) Other specified cardiac dysrhythmias documented in this encounter [facility] note* Diagnosis Pain in both lower extremities GERD without esophagitis Esophageal reflux Epigastric pain Abdominal pain, epigastric documented in this encounter [facility] for referral (narrative)* Diagnostic Procedure Only (Routine) - Pending Review Specialty Diagnoses / Procedures Referred By Jenny t Referred To Contact [facility] Diagnoses Encounter for screening mammogram for breast cancer Procedures FRANNY SCREENING SCREENING MAMMOGRAPHY BI 2-VIEW BREAST INC CAD Boris Vance MD [address] [place] [address] [facility] [address] [place] [address] Referral ID Status Reason Start Date Expiration Date Visits Requested Visits Authorized [id number] Pending Review Auto-Generat ed Referral 09/06/2023 1 1 [facility] for referral (narrative)* Diagnostic Procedure Only (Routine) - Pending Review Specialty Diagnoses / Procedures [facility]erred To Contact [facility] Diagnoses Chest pain, unspecified type Procedures NM CARDIAC PERF STRESS/PHARM MYOCARDIAL SPECT MULTIPLE STUDIES Radha Btaista, TELETYPIST.HOSPITAL SUPERINTENDENT [address] [place] [address] [facility] [address] [place] [address] Referral ID Status Reason Start Date Expiration Date Visits Requested Visits Authorized [id number] Pending Review Auto-Generat ed Referral 04/29/2023 05/28/2024 1 1 * Outpatient Procedure (Routine) - Closed Specialty Diagnoses / Procedures [facility] Diagnoses Chest pain, unspecified type Procedures ECG COMPLETE ECG ROUTINE ECG W/LEAST 12 LDS W/I&R Radha Batista, ADIEL.HOSPITAL SUPERINTENDENT [address] [place] [address] [facility] [address] [place] [address] Referral ID Status Reason Start Date Expiration Date V isits Requested Visits Authorized [id number] Closed Auto-Generate d Referral 04/29/2023 04/28/2024 1 1 [facility] for referral (narrative)* Diagnostic Procedure Only (Routine) - Pending Review Specialty Diagnoses / Procedures Referred By Jenny cotter Referred To Contact [facility] Diagnoses Encounter for screening mammogram for breast cancer Procedures FRANNY SCREENING SCREENING MAMMOGRAPHY BI 2-VIEW BREAST INC CAD Boris Vance MD [address] [place] [address] [facility] [address] [place] [address] Referral ID Status Reason Start Date Expiration Date Visits Requested Visits Authorized [id number] Pending Review Auto-Generat ed Referral 07/16/2023 08/14/2024 1 1 [facility] for visit Narrative* Diagnostic Procedure Only (Routine) - Closed Specialty Diagnoses / Procedures Referred By Jenny cotter Referred To Contact [facility] Diagnoses Chest pain, unspecified type Procedures NM CARDIAC PERF STRESS/PHARM MYOCARDIAL SPECT MULTIPLE STUDIES Radha Batista APRN.CNP [address] [place] [address] [facility] [address] [place] [address] Referral ID Status Reason Start Date Expiration Date V isits Requested Visits Authorized [id number] Closed Auto-Generate d Referral 05/15/2023 10/12/2023 3 1 [facility] Summary Purpose Family History No Family History Records FoundNo Family History Records FoundNo Family History Records Found Advance Directives Documents on File Type Date Recorded 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 Advance Directive(s) 12/04/2016 3:21 PM Advance Directive(s) 01/11/2009 10:19 PM Advance Directive(s) 12/06/2008 4:00 PM Documents on File Type Date Recorded 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 Advance Directive(s) 01/11/2009 10:19 PM Advance Directive(s) 12/06/2008 4:00 PM Documents on File Type Date Recorded 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 Advance Directive(s) 01/11/2009 10:19 PM Advance Directive(s) 12/06/2008 4:00 PM Reason for Referral Specialty Diagnoses / Procedures Referred By Contac t Referred To Contact Podiatry Diagnoses Injury of toenail of right foot, initial encounter Procedures CONSULT TO PODIATRY OFFICE/OUTPATIENT [facility] HIGH MDM 60-74 MINUTES Zaira García APRN.HOSPITAL SUPERINTENDENT [address] [place] [address] Referral ID Status Reason Start Date Expiration Date Visits Requested Visits Authorized [id number] Authorized PCP Requested Referral 07/05/2022 07/05/2023 1 1 Additional Source Comments INFORMATION SOURCE (unrecogn ized section and content) DATE CREATED AUTHOR AUTHOR'S ORGANIZ ATION 07/21/2021 [facility] DATE CREATED AUTHOR AUTHOR'S ORGANIZ ATION 11/21/2023 [facility] Source Comments (unrecognize d section and content) In the event this informatio n is protected by the Federal Confidentiality of Alcohol and Drug Abuse Patient Records regulations: The Federal rules restrict any use of the information to criminally investigate or prosecute any alcohol or drug abuse patient.[facility] the event this information is protected by the Federal Confidentiality of Alcohol and Drug Abuse Patient Records regulations: The Federal rules restrict any use of the information to criminally investigate or prosecute any alcohol or drug abuse patient.[facility] the event this information is protected by the Federal Confidentiality of Alcohol and Drug Abuse Patient Records regulations: The Federal rules restrict any use of the information to criminally investigate or prosecute any alcohol or drug abuse patient.[facility] the event this information is protected by the Federal Confidentiality of Alcohol and Drug Abuse Patient Records regulations: The Federal rules restrict any use of the information to criminally investigate or prosecute any alcohol or drug abuse patient.[facility] the event this information is protected by the Federal Confidentiality of Alcohol and Drug Abuse Patient Records regulations: The Federal rules restrict any use of the information to criminally investigate or prosecute any alcohol or drug abuse patient.[facility] the event this information is protected by the Federal Confidentiality of Alcohol and Drug Abuse Patient Records regulations: The Federal rules restrict any use of the information to criminally investigate or prosecute any alcohol or drug abuse patient.[facility] the event this information is protected by the Federal Confidentiality of Alcohol and Drug Abuse Patient Records regulations: The Federal rules restrict any use of the information to criminally investigate or prosecute any alcohol or drug abuse patient.[facility] the event this information is protected by the Federal Confidentiality of Alcohol and Drug Abuse Patient Records regulations: The Federal rules restrict any use of the information to criminally investigate or prosecute any alcohol or drug abuse patient.[facility] the event this information is protected by the Federal Confidentiality of Alcohol and Drug Abuse Patient Records regulations: The Federal rules restrict any use of the information to criminally investigate or prosecute any alcohol or drug abuse patient.[facility] the event this information is protected by the Federal Confidentiality of Alcohol and Drug Abuse Patient Records regulations: The Federal rules restrict any use of the information to criminally investigate or prosecute any alcohol or drug abuse patient.[facility] the event this information is protected by the Federal Confidentiality of Alcohol and Drug Abuse Patient Records regulations: The Federal rules restrict any use of the information to criminally investigate or prosecute any alcohol or drug abuse patient.[facility] the event this information is protected by the Federal Confidentiality of Alcohol and Drug Abuse Patient Records regulations: The Federal rules restrict any use of the information to criminally investigate or prosecute any alcohol or drug abuse patient.[facility] HospitalIn the event this information is protected by the Federal Confidentiality of Alcohol and Drug Abuse Patient Records regulations: The Federal rules restrict any use of the information to criminally investigate or prosecute any alcohol or drug abuse patient.[facility] HospitalIn the event this information is protected by the Federal Confidentiality of Alcohol and Drug Abuse Patient Records regulations: The Federal rules restrict any use of the information to criminally investigate or prosecute any alcohol or drug abuse patient.[facility] the event this information is protected by the Federal Confidentiality of Alcohol and Drug Abuse Patient Records regulations: The Federal rules restrict any use of the information to criminally investigate or prosecute any alcohol or drug abuse patient.[facility] HospitalIn the event this information is protected by the Federal Confidentiality of Alcohol and Drug Abuse Patient Records regulations: The Federal rules restrict any use of the information to criminally investigate or prosecute any alcohol or drug abuse patient.[facility]In the event this information is protected by the Federal Confidentiality of Alcohol and Drug Abuse Patient Records regulations: The Federal rules restrict any use of the information to criminally investigate or prosecute any alcohol or drug abuse patient.[facility] the event this information is protected by the Federal Confidentiality of Alcohol and Drug Abuse Patient Records regulations: The Federal rules restrict any use of the information to criminally investigate or prosecute any alcohol or drug abuse patient.[facility] HospitalIn the event this information is protected by the Federal Confidentiality of Alcohol and Drug Abuse Patient Records regulations: The Federal rules restrict any use of the information to criminally investigate or prosecute any alcohol or drug abuse patient.[facility] HospitalIn the event this information is protected by the Federal Confidentiality of Alcohol and Drug Abuse Patient Records regulations: The Federal rules restrict any use of the information to criminally investigate or prosecute any alcohol or drug abuse patient.[facility] HospitalIn the event this information is protected by the Federal Confidentiality of Alcohol and Drug Abuse Patient Records regulations: The Federal rules restrict any use of the information to criminally investigate or prosecute any alcohol or drug abuse patient.[facility] HospitalIn the event this information is protected by the Federal Confidentiality of Alcohol and Drug Abuse Patient Records regulations: The Federal rules restrict any use of the information to criminally investigate or prosecute any alcohol or drug abuse patient.[facility]In the event this information is protected by the Federal Confidentiality of Alcohol and Drug Abuse Patient Records regulations: The Federal rules restrict any use of the information to criminally investigate or prosecute any alcohol or drug abuse patient.[facility] HospitalIn the event this information is protected by the Federal Confidentiality of Alcohol and Drug Abuse Patient Records regulations: The Federal rules restrict any use of the information to criminally investigate or prosecute any alcohol or drug abuse patient.[facility]In the event this information is protected by the Federal Confidentiality of Alcohol and Drug Abuse Patient Records regulations: The Federal rules restrict any use of the information to criminally investigate or prosecute any alcohol or drug abuse patient.[facility]In the event this information is protected by the Federal Confidentiality of Alcohol and Drug Abuse Patient Records regulations: The Federal rules restrict any use of the information to criminally investigate or prosecute any alcohol or drug abuse patient.[facility]In the event this information is protected by the Federal Confidentiality of Alcohol and Drug Abuse Patient Records regulations: The Federal rules restrict any use of the information to criminally investigate or prosecute any alcohol or drug abuse patient.[facility] HospitalIn the event this information is protected by the Federal Confidentiality of Alcohol and Drug Abuse Patient Records regulations: The Federal rules restrict any use of the information to criminally investigate or prosecute any alcohol or drug abuse patient.[facility] HospitalIn the event this information is protected by the Federal Confidentiality of Alcohol and Drug Abuse Patient Records regulations: The Federal rules restrict any use of the information to criminally investigate or prosecute any alcohol or drug abuse patient.[facility]In the event this information is protected by the Federal Confidentiality of Alcohol and Drug Abuse Patient Records regulations: The Federal rules restrict any use of the information to criminally investigate or prosecute any alcohol or drug abuse patient.[facility]In the event this information is protected by the Federal Confidentiality of Alcohol and Drug Abuse Patient Records regulations: The Federal rules restrict any use of the information to criminally investigate or prosecute any alcohol or drug abuse patient.[facility]In the event this information is protected by the Federal Confidentiality of Alcohol and Drug Abuse Patient Records regulations: The Federal rules restrict any use of the information to criminally investigate or prosecute any alcohol or drug abuse patient.[facility]In the event this information is protected by the Federal Confidentiality of Alcohol and Drug Abuse Patient Records regulations: The Federal rules restrict any use of the information to criminally investigate or prosecute any alcohol or drug abuse patient.[facility]In the event this information is protected by the Federal Confidentiality of Alcohol and Drug Abuse Patient Records regulations: The Federal rules restrict any use of the information to criminally investigate or prosecute any alcohol or drug abuse patient.[facility] HospitalIn the event this information is protected by the Federal Confidentiality of Alcohol and Drug Abuse Patient Records regulations: The Federal rules restrict any use of the information to criminally investigate or prosecute any alcohol or drug abuse patient.[facility] HospitalIn the event this information is protected by the Federal Confidentiality of Alcohol and Drug Abuse Patient Records regulations: The Federal rules restrict any use of the information to criminally investigate or prosecute any alcohol or drug abuse patient.[facility] HospitalIn the event this information is protected by the Federal Confidentiality of Alcohol and Drug Abuse Patient Records regulations: The Federal rules restrict any use of the information to criminally investigate or prosecute any alcohol or drug abuse patient.[facility] HospitalIn the event this information is protected by the Federal Confidentiality of Alcohol and Drug Abuse Patient Records regulations: The Federal rules restrict any use of the information to criminally investigate or prosecute any alcohol or drug abuse patient.[facility] HospitalIn the event this information is protected by the Federal Confidentiality of Alcohol and Drug Abuse Patient Records regulations: The Federal rules restrict any use of the information to criminally investigate or prosecute any alcohol or drug abuse patient.[facility] HospitalIn the event this information is protected by the Federal Confidentiality of Alcohol and Drug Abuse Patient Records regulations: The Federal rules restrict any use of the information to criminally investigate or prosecute any alcohol or drug abuse patient.[facility] HospitalIn the event this information is protected by the Federal Confidentiality of Alcohol and Drug Abuse Patient Records regulations: The Federal rules restrict any use of the information to criminally investigate or prosecute any alcohol or drug abuse patient.[facility] HospitalIn the event this information is protected by the Federal Confidentiality of Alcohol and Drug Abuse Patient Records regulations: The Federal rules restrict any use of the information to criminally investigate or prosecute any alcohol or drug abuse patient.[facility] HospitalIn the event this information is protected by the Federal Confidentiality of Alcohol and Drug Abuse Patient Records regulations: The Federal rules restrict any use of the information to criminally investigate or prosecute any alcohol or drug abuse patient.[facility] HospitalIn the event this information is protected by the Federal Confidentiality of Alcohol and Drug Abuse Patient Records regulations: The Federal rules restrict any use of the information to criminally investigate or prosecute any alcohol or drug abuse patient.[facility] HospitalIn the event this information is protected by the Federal Confidentiality of Alcohol and Drug Abuse Patient Records regulations: The Federal rules restrict any use of the information to criminally investigate or prosecute any alcohol or drug abuse patient.[facility] HospitalIn the event this information is protected by the Federal Confidentiality of Alcohol and Drug Abuse Patient Records regulations: The Federal rules restrict any use of the information to criminally investigate or prosecute any alcohol or drug abuse patient.[facility] HospitalIn the event this information is protected by the Federal Confidentiality of Alcohol and Drug Abuse Patient Records regulations: The Federal rules restrict any use of the information to criminally investigate or prosecute any alcohol or drug abuse patient.[facility] Reason for Visit (unrecogniz ed section [...] STRESS/PHARM MYOCARDIAL SPECT MULTIPLE STUDIES Radha Batista APRN.HOSPITAL SUPERINTENDENT [address] [place] [address] Molecular & Functional Imaging [address] [place] [address] Referral ID Status Reason Start Date Expiration Date V isits Requested Visits Authorized [id number] Closed Auto-Generate d Referral 05/15/2023 10/12/2023 3 1 Reason Comments Elevated Blood Sugar Reason Onset Date Comments Refill Request 08/20/2023 Medication Problem Reason Onset Date Comments Refill Request 08/28/2023 Reason Comments Vaginal Problem Reason Onset Date Comments Refill Request 09/10/2023 Reason Comments Medication Problem Test strips and lanc ets Reason Comments Established Patient Follow-Up Reason Comments Results Labs Reason Onset Date Comments Refill Request 12/02/2023 Care Teams (unrecognized sec tion and content) Corporation Secretary Relationship Specialty Start Date End Date Boris Vance MD [address] [place], [place] [address] PCP - General Family Practice 12/26/14 Koby Ramirez V [address] [place] [address] Internal Medicine 07/22/18 Haylee Mars Other 05/30/14 Shelter 12/18/17 corner stone DME 10/25/19 Corporation Secretary Relationship Specialty Start Date End Date Boris Vance MD [address] [facility] [place], [place] [address] [phone] PCP - General Family Practice 12/26/14 Koby Ramirez V [address] [place] [address] Internal Medicine 07/22/18 Haylee Mars Other 05/30/14 Shelter 12/18/17 clark penobsc[place] DME 10/25/19 Corporation Secretary Relationship Specialty Start Date End Date Boris Vance MD [address] [facility] [place] [address] PCP - General Family Practice 12/26/14 Koby Ramirez V [address] [place] [address] Internal Medicine 07/22/18 Haylee Mars Other 05/30/14 Shelter 12/18/17 clark [place] DME 10/25/19 Corporation Secretary Relationship Specialty Start Date End Date Boris Vance MD [address] [facility] [place] [address] PCP - General Family Practice 12/26/14 Koby Ramirez V [address] [place] [address] Internal Medicine 07/22/18 Haylee Mars Other 05/30/14 Shelter 12/18/17 clark marr DME 10/25/19 Corporation Secretary Relationship Specialty Start Date End Date Boris Vance MD [address] [facility] [place] [address] PCP - General Family Practice 12/26/14 Koby Ramirez V [address] [place] [address] Internal Medicine 07/22/18 Haylee Mars Other 05/30/14 Shelter 12/18/17 clark marr DME 10/25/19 Corporation Secretary Relationship Specialty Start Date End Date Boris Vance MD [address] [facility] [place] [address] PCP - General Family Practice 12/26/14 Koby Ramirez V [address] [place] [address] Internal Medicine 07/22/18 Haylee Mars Other 05/30/14 Shelter 12/18/17 clark marr DME 10/25/19 Corporation Secretary Relationship Specialty Start Date End Date Boris Vance MD [address] [facility] [place] [address] PCP - General Family Medicine 12/26/14 Koby Ramirez V [address] [place] [address] Internal Medicine 07/22/18 Haylee Mars Other 05/30/14 Shelter 12/18/17 corner [facility] DME 10/25/19 Corporation Secretary Relationship Specialty Start Date End Date Boris Vance MD [address] [facility] [place] [address] PCP - General Family Medicine 12/26/14 Koby Ramirez V [address] [place] [address] Internal Medicine 07/22/18 Haylee Mars Other 05/30/14 Shelter 12/18/17 clark stone DME 10/25/19 Corporation Secretary Relationship Specialty Start Date End Date Boris Vance MD [address] [facility] [place] [address] PCP - General Family Medicine 12/26/14 Koby Ramirez V [address] [place] [address] Internal Medicine 07/22/18 Haylee Mars Other 05/30/14 Shelter 12/18/17 clark marr DME 10/25/19 Corporation Secretary Relationship Specialty Start Date End Date Boris Vacne MD [address] [facility] [place] [address] PCP - General Family Medicine 12/26/14 Koby Ramirez V [address] [place] [address] Internal Medicine 07/22/18 Haylee Mars Other 05/30/14 Shelter 12/18/17 clark stone DME 10/25/19 Corporation Secretary Relationship Specialty Start Date End Date Boris Vance MD [address] [facility] [place] [address] PCP - General Family Medicine 12/26/14 Koby Ramirez V [address] [place] [address] Internal Medicine 07/22/18 Haylee Mars Other 05/30/14 Shelter 12/18/17 corner [facility] DME 10/25/19 Corporation Secretary Relationship Specialty Start Date End Date Boris Vance MD [address] [facility] [place] [address] PCP - General Family Medicine 12/26/14 Koby Ramirez V [address] [place] [address] Internal Medicine 07/22/18 Haylee Mars Other 05/30/14 Shelter 12/18/17 corner stone DME 10/25/19 Corporation Secretary Relationship Specialty Start Date End Date Boris Vance MD [address] [facility] [place] [address] PCP - General Family Medicine 12/26/14 Koby Ramirez V [address] [place] [address] Internal Medicine 07/22/18 Haylee Mars Other 05/30/14 Shelter 12/18/17 corner stone DME 10/25/19 Corporation Secretary Relationship Specialty Start Date End Date Boris Vance MD [address] [facility] [place] [address] PCP - General Family Medicine 12/26/14 Koby Ramirez V [address] [place] [address] Internal Medicine 07/22/18 Haylee Mars Other 05/30/14 Shelter 12/18/17 corner stone DME 10/25/19 Corporation Secretary Relationship Specialty Start Date End Date Boris Vance MD [address] [facility] [place] [address] PCP - General Family Medicine 12/26/14 Koby Ramirez V [address] [place] [address] Internal Medicine 07/22/18 Haylee Mars Other 05/30/14 Shelter 12/18/17 corner stone DME 10/25/19 Corporation Secretary Relationship Specialty Start Date End Date Boris Vance MD [address] [facility] [place] [address] PCP - General Family Medicine 12/26/14 Koby Ramirez V [address] [place] [address] Internal Medicine 07/22/18 Haylee Mars Other 05/30/14 Shelter 12/18/17 clark marr DME 10/25/19 Corporation Secretary Relationship Specialty Start Date End Date Boris Vance MD [address] [facility] [place] [address] PCP - General Family Medicine 12/26/14 Koby Ramirez V [address] [place] [address] Internal Medicine 07/22/18 Haylee Rodriguezi Other 05/30/14 Shelter 12/18/17 corner stone DME 10/25/19 Corporation Secretary Relationship Specialty Start Date End Date Boris Vance MD [address] [place] [place] [address] PCP - General Family Medicine 12/26/14 Koby Ramirez V [address] [place] [phone] Internal Medicine 07/22/18 Haylee Mars Other 05/30/14 Shelter 12/18/17 corner justa DME 10/25/19 Corporation Secretary Relationship Specialty Start Date End Date Boris Vance MD [address] [place] [place] [place] [address] PCP - General Family Medicine 12/26/14 Koby Ramirez V [address] [place] [address] Internal Medicine 07/22/18 Haylee Mars Other 05/30/14 Shelter 12/18/17 corner stone DME 10/25/19 Corporation Secretary Relationship Specialty Start Date End Date Boris Vance MD [address] [place] [address] PCP - General Family Medicine 12/26/14 Koby Ramirez V [address] [place] [address] Internal Medicine 07/22/18 Haylee Mars Other 05/30/14 Shelter 12/18/17 corner stone DME 10/25/19 Corporation Secretary Relationship Specialty Start Date End Date Boris Vance MD [address] [place] [address] PCP - General Family Medicine 12/26/14 Koby Ramirez V [address] [place] [place] [address] Internal Medicine 07/22/18 Haylee Mars Other 05/30/14 Shelter 12/18/17 corner stone DME 10/25/19 Corporation Secretary Relationship Specialty Start Date End Date Boris Vance MD [address] [place] [address] PCP - General Family Medicine 12/26/14 Koby Ramirez V [address] [place] [address] Internal Medicine 07/22/18 Haylee Mars Other 05/30/14 Shelter 12/18/17 corner stone DME 10/25/19 Corporation Secretary Relationship Specialty Start Date End Date Boris Vance MD [address] [place] [address] PCP - General Family Medicine 12/26/14 Koby Ramirez V [address] [place] [place] [address] Internal Medicine 07/22/18 Haylee Mars Other 05/30/14 Shelter 12/18/17 clark marr DME 10/25/19 Corporation Secretary Relationship Specialty Start Date End Date Boris Vance MD [address] [place] [address] PCP - General Family Medicine 12/26/14 Koby Ramirez V [address] [place] [place] [address] Internal Medicine 07/22/18 Haylee Mars Other 05/30/14 Shelter 12/18/17 clark marr DME 10/25/19 Corporation Secretary Relationship Specialty Start Date End Date Boris Vance MD [address] [place] [address] PCP - General Family Medicine 12/26/14 Koby Ramirez V [address] [place] [address] Internal Medicine 07/22/18 Haylee Mars Other 05/30/14 Shelter 12/18/17 corner stone DME 10/25/19 Corporation Secretary Relationship Specialty Start Date End Date Boris Vance MD [address] [place], [place] [address] PCP - General Family Medicine 12/26/14 Koby Ramirez V [address] [place] [place] [address] Internal Medicine 07/22/18 Haylee Mars Other 05/30/14 Shelter 12/18/17 clark marr DME 10/25/19 Corporation Secretary Relationship Specialty Start Date End Date Boris Vance MD [address] [place], [place] [address] PCP - General Family Medicine 12/26/14 Koby Ramirez V [address] [place] [place] [address] Internal Medicine 07/22/18 Haylee Mars Other 05/30/14 Shelter 12/18/17 clark marr DME 10/25/19 Corporation Secretary Relationship Specialty Start Date End Date Boris Vance MD [address] [place], [place] [address] PCP - General Family Medicine 12/26/14 Koby Ramirez V [address] [place] [address] Internal Medicine 07/22/18 Haylee Mars Other 05/30/14 Shelter 12/18/17 corner justa DME 10/25/19 Corporation Secretary Relationship Specialty Start Date End Date Boris Vance MD [address] [place], [place] [phone] PCP - General Family Medicine 12/26/14 Koby Ramirez V [address] [facility] [place] [phone] Internal Medicine 07/22/18 Haylee Mars Other 05/30/14 Shelter 12/18/17 clark marr DME 10/25/19 Corporation Secretary Relationship Specialty Start Date End Date Boris Vance MD [address] [place], [place] [address] PCP - General Family Medicine 12/26/14 Koby Ramirez V [address] [place] [address] Internal Medicine 07/22/18 Haylee Mars Other 05/30/14 Shelter 12/18/17 clark marr DME 10/25/19 FOR RECORDS [...] BE BASED ON THE PRIMARY CLINICAL RECORDS. [facility] [employer] [facility]. provides no warranty or guarantee of the accuracy or completeness of information in this document.
[2023-12-13 18:49] LABS: Absolute Neutrophil Count 12.8 X10^3/uL (2.0-7.7); Basophil# 0.03 X10^3/uL; Basophil% 0.2 % (0-1); Eosinophil# 0.05 X10^3/uL; Eosinophils% 0.3 % (0-5); Hematocrit 42.7 % (37-47); Hemoglobin 14.1 g/dL (12.0-15.0); Lymphocyte % 8.5 % (19-41); Mean Corpuscular Hgb 28.8 pg (27.0-32.0); Mean Corpuscular Volume 87.1 fL (81-99); Mean Platelet Vol. 9.5 fl (6.2-12.0); Monocyte% 7.2 % (0-10); NRBC Flagged by Analyzer 0 % (0-5); Neutrophil # 12.77 X10^3/uL (2.7-7.7); Neutrophil % 83.5 % (47-70); Platelet Count 226 K/mm3 (150-450); RBC Distribution Width CV 13.5 % (11.6-14.6); RBC Distribution Width SD 42.6 fl (35.1-43.9); White Blood Count 15.3 K/mm3 (4.4-11.0)
[2023-12-13 19:04] LABS: ALB/GLOB Ratio 0.9 RATIO (0.9-2.4); AST(SGOT) 23 U/L (15-37); Alanine Aminotransfer ALT/SGPT 43 U/L (13-56); Albumin, Serum 3.5 g/dL (3.2-5.0); Alkaline Phosphatase 141 U/L (45-117); Anion Gap 7 (5-15); BUN 22 mg/dL (7-18); BUN/Creat Ratio 39.8 RATIO (10-20); Calcium,Total 9.1 mg/dL (8.5-10.1); Chloride 100 mmol/L (98-107); Creatinine, Serum 0.55 mg/dL (0.55-1.02); EST Glomerular Filtration Rate 119 mL/min (>60); Est Glom Filt Rate - Afr Amer 144 mL/min (>60); Estimated Creatinine Clearance 104.39 ml/min; Globulin 3.7 g/dL (2.2-4.2); Glucose 146 mg/dL (74-106); Lipase 37 U/L (13-75); Potassium 4.1 mmol/L (3.5-5.1); Protein, Total 7.2 g/dL (6.4-8.2); Sodium Level 129 mmol/L (136-145)
[2023-12-13 20:08] VITALS: RESP 18
[2023-12-13] MEDS: Morphine 4 MG/ML Syringe IV (20:25)
[2023-12-13 21:10] LABS: Bacteria 0 SEEN /hpf (None Seen); Mucous, Urine 0 SEEN /hpf (<or=2+); Red Blood Cells-Urine 0 SEEN /hpf (0-5)
[2023-12-13 21:12] LABS: Color, Urine Straw (Yellow); Glucose, Dipstick 1000 mg/dl (Normal); Ketone-Dipstick 5 mg/dl (Negative); Leukocyte Esterase-Dipstick 25 /ul (Negative); Nitrite-Dipstick Negative (Negative); Occult Blood-Urine Negative /ul (Negative); Protein-Dipstick Negative (Negative); Urine Bilirubin Dipstick Negative (Negative); Urine Clarity Clear (Clear); Urine Urobilinogen Normal (Normal)
[2023-12-13 21:22] LABS: Squamous Epithelial Cells - UA 0-5 SEEN /hpf (5-10); White Blood Cells 0-5 SEEN /hpf (0-5)
--- NOTE | 2023-12-13 21:25 | CT_ITS ---
EXAM: CT ABDOMEN AND PELVIS WITH INTRAVENOUS CONTRAST CLINICAL INDICATION: abdominal pain TECHNIQUE: Helically acquired images were obtained of the abdomen and pelvis with intravenous contrast. This CT exam was performed using one or more of the following dose reduction techniques: automated exposure control, adjustment of the mA and/or kV according to patient size, and/or use of iterative reconstruction technique. CONTRAST: 100ML ISOVUE 370 COMPARISON: No relevant prior studies available. FINDINGS: LOWER THORAX: Unremarkable. Lung bases are clear. No cardiomegaly. No significant pericardial effusion. ABDOMEN: LIVER: Unremarkable. Homogeneous. No focal mass. GALLBLADDER AND BILE DUCTS: Unremarkable. No calcified gallstones. No gallbladder distention or wall edema. No intra- or extrahepatic biliary ductal dilation. PANCREAS: Unremarkable. No focal cystic or solid mass. SPLEEN: Unremarkable. Normal size without focal cystic or solid mass. ADRENALS: Unremarkable. No nodules. KIDNEYS AND URETERS: Unremarkable. Normal renal size and position. No hydronephrosis. STOMACH AND BOWEL: There is a moderate amount stool seen throughout the colon compatible with constipation. No stomach or bowel distention. No focal inflammatory change. PELVIS: APPENDIX: No evidence of acute appendicitis. BLADDER: Unremarkable. REPRODUCTIVE: Unremarkable as visualized. No mass. ABDOMEN and PELVIS: INTRAPERITONEAL SPACE: Unremarkable. No ascites or other fluid collection. No free air. BONES/JOINTS: Unremarkable. No suspicious lytic or blastic abnormality. SOFT TISSUES: Unremarkable. No discrete abdominal or pelvic wall hernia. VASCULATURE: Unremarkable. Abdominal aorta is non-dilated. LYMPH NODES: Unremarkable. No enlarged lymph nodes. CT/Abdomen/Pelvis W IV Cont ONLY IMPRESSION: Moderate stool in the colon compatible with constipation. No other acute abnormalities are identified. Electronically Signed: Tj Rosales MD at 22:00 EST ,
[2023-12-13 22:08] VITALS: RESP 20
[2023-12-13 23:59] VITALS: BP 112/68; PULSE 88; RESP 16; TEMP 36.6; O2SAT 97
--- NOTE | 2023-12-14 | ED.RN ---
pt dc delayed d/t issues w/rx insurance.
== END 2023-12-14 | disposition home or self-care (01) ==
PROVIDERS: Emergency Provider Student in an Organized Health Care Education/Training Program; PCP Family Medicine; Visit Provider Student in an Organized Health Care Education/Training Program
DX: R10.9 Unspecified abdominal pain (principal); F20.9 Schizophrenia, unspecified; J44.9 Chronic obstructive pulmonary disease, unspecified; E11.9 Type 2 diabetes mellitus without complications; R11.2 Nausea with vomiting, unspecified; K59.00 Constipation, unspecified; G47.33 Obstructive sleep apnea (adult) (pediatric); Z87.891 Personal history of nicotine dependence; Z79.82 Long term (current) use of aspirin
CPT/HCPCS: 74177; 80053; 81001; 83690; 85025; 87631; 96361; 96374; 96375; 96376; 99283; J7030; Q9967; A4216; J2405

== ENCOUNTER 2024-01-07 08:26 | Outpatient (RCR) | payer MEDICARE, MEDICAID, SELFPAY ==
[2023-12-11 23:05] VITALS: BMI 36.6
[2023-12-17 10:34] LABS: Absolute Lymphocyte Count 2.08 X10^3/uL (0.83-4.51); Absolute Neutrophil Count 5.6 X10^3/uL (2.0-7.7); Basophil# 0.05 X10^3/uL; Basophil% 0.6 % (0-1); Eosinophil# 0.01 X10^3/uL; Eosinophils% 0.1 % (0-5); Hematocrit 38.9 % (37-47); Hemoglobin 12.2 g/dL (12.0-15.0); Lymphocyte # 2.08 X10^3/ul (0.83-4.51); Lymphocyte % 25.3 % (19-41); Mean Corp Hgb Conc 31.4 g/dL (32-36); Mean Corpuscular Volume 89.4 fL (81-99); Mean Platelet Vol. 10.1 fl (6.2-12.0); Monocyte# 0.49 X10^3/uL; NRBC Flagged by Analyzer 0 % (0-5); Neutrophil # 5.55 X10^3/uL (2.7-7.7); Neutrophil % 67.4 % (47-70); POSITIVE MORPHOLOGY YES; Platelet Count 204 K/mm3 (150-450); RBC Distribution Width CV 13.6 % (11.6-14.6); RBC Distribution Width SD 44.3 fl (35.1-43.9); Red Blood Count 4.35 M/mm3 (4.2-5.4); White Blood Count 8.2 K/mm3 (4.4-11.0)
[2023-12-17 10:48] LABS: Differential Indicated SCAN CRITERIA MET
[2024-01-07 09:27] LABS: Absolute Lymphocyte Count 1.58 X10^3/uL (0.83-4.51); Absolute Neutrophil Count 5.6 X10^3/uL (2.0-7.7); Basophil# 0.03 X10^3/uL; Basophil% 0.4 % (0-1); Eosinophil# 0.01 X10^3/uL; Eosinophils% 0.1 % (0-5); Hematocrit 41.1 % (37-47); Hemoglobin 13.1 g/dL (12.0-15.0); Lymphocyte # 1.58 X10^3/ul (0.83-4.51); Lymphocyte % 21.1 % (19-41); Mean Corp Hgb Conc 31.9 g/dL (32-36); Mean Corpuscular Hgb 28.5 pg (27.0-32.0); Mean Corpuscular Volume 89.5 fL (81-99); Mean Platelet Vol. 10.8 fl (6.2-12.0); Monocyte# 0.28 X10^3/uL; Monocyte% 3.7 % (0-10); NRBC Flagged by Analyzer 0 % (0-5); Neutrophil # 5.57 X10^3/uL (2.7-7.7); Neutrophil % 74.3 % (47-70); Platelet Count 188 K/mm3 (150-450); RBC Distribution Width CV 13.7 % (11.6-14.6); RBC Distribution Width SD 44.7 fl (35.1-43.9); Red Blood Count 4.59 M/mm3 (4.2-5.4); White Blood Count 7.5 K/mm3 (4.4-11.0)
== END 2024-01-10 18:00 | disposition home or self-care (01) ==
LOC: LAB 08:26
PROVIDERS: Family Provider Family Medicine; PCP Family Medicine; Referring Provider Psychiatry & Neurology Psychiatry; Visit Provider Psychiatry & Neurology Psychiatry
DX: Z79.899 Other long term (current) drug therapy (principal)
CPT/HCPCS: 36415; 85025

== ENCOUNTER 2024-02-03 15:44 | Outpatient (RCR) | payer MEDICARE, MEDICAID, SELFPAY ==
[2024-01-10 22:32] VITALS: BMI 36.6
[2024-02-03 16:44] LABS: Absolute Lymphocyte Count 2.53 X10^3/uL (0.83-4.51); Absolute Neutrophil Count 6.6 X10^3/uL (2.0-7.7); Basophil# 0.04 X10^3/uL; Basophil% 0.4 % (0-1); Eosinophil# 0.05 X10^3/uL; Eosinophils% 0.5 % (0-5); Hematocrit 41.7 % (37-47); Hemoglobin 13.5 g/dL (12.0-15.0); Lymphocyte # 2.53 X10^3/ul (0.83-4.51); Lymphocyte % 25.5 % (19-41); Mean Corp Hgb Conc 32.4 g/dL (32-36); Mean Corpuscular Hgb 28.7 pg (27.0-32.0); Mean Corpuscular Volume 88.7 fL (81-99); Mean Platelet Vol. 11.1 fl (6.2-12.0); Monocyte# 0.67 X10^3/uL; Monocyte% 6.8 % (0-10); NRBC Flagged by Analyzer 0 % (0-5); Neutrophil % 66.5 % (47-70); Platelet Count 190 K/mm3 (150-450); RBC Distribution Width CV 13.8 % (11.6-14.6); RBC Distribution Width SD 44.4 fl (35.1-43.9); White Blood Count 9.9 K/mm3 (4.4-11.0)
== END 2024-02-10 23:08 | disposition home or self-care (01) ==
LOC: LAB 15:44
PROVIDERS: Family Provider Family Medicine; PCP Family Medicine; Referring Provider Psychiatry & Neurology Psychiatry; Visit Provider Psychiatry & Neurology Psychiatry
DX: Z79.899 Other long term (current) drug therapy (principal)
CPT/HCPCS: 36415; 85025; 85045; 85652

== ENCOUNTER 2024-03-10 08:52 | Outpatient (RCR) | payer MEDICARE, MEDICAID, SELFPAY ==
[2024-02-10 23:08] VITALS: BMI 36.6
[2024-03-10 09:43] LABS: Absolute Lymphocyte Count 1.62 X10^3/uL (0.83-4.51); Absolute Neutrophil Count 4.9 X10^3/uL (2.0-7.7); Basophil# 0.05 X10^3/uL; Basophil% 0.7 % (0-1); Eosinophil# 0.01 X10^3/uL; Eosinophils% 0.1 % (0-5); Hematocrit 43.5 % (37-47); Hemoglobin 14.1 g/dL (12.0-15.0); Lymphocyte # 1.62 X10^3/ul (0.83-4.51); Lymphocyte % 22.6 % (19-41); Mean Corp Hgb Conc 32.4 g/dL (32-36); Mean Corpuscular Hgb 28.8 pg (27.0-32.0); Mean Corpuscular Volume 88.8 fL (81-99); Mean Platelet Vol. 10.7 fl (6.2-12.0); Monocyte# 0.58 X10^3/uL; Monocyte% 8.1 % (0-10); NRBC Flagged by Analyzer 0 % (0-5); Neutrophil # 4.87 X10^3/uL (2.7-7.7); Neutrophil % 68.1 % (47-70); POSITIVE MORPHOLOGY YES; Platelet Count 209 K/mm3 (150-450); RBC Distribution Width CV 13.8 % (11.6-14.6); RBC Distribution Width SD 44.9 fl (35.1-43.9); White Blood Count 7.2 K/mm3 (4.4-11.0)
[2024-03-10 10:12] LABS: Differential Indicated SCAN CRITERIA MET
[2024-03-10 10:49] LABS: Differential Comment SCANNED
== END 2024-03-10 18:00 | disposition home or self-care (01) ==
LOC: LAB 08:52
PROVIDERS: Family Provider Family Medicine; Referring Provider Psychiatry & Neurology Psychiatry; Visit Provider Psychiatry & Neurology Psychiatry
DX: Z79.899 Other long term (current) drug therapy (principal)
CPT/HCPCS: 36415; 85025

== ENCOUNTER 2024-03-24 13:52 | Outpatient (RCR) | payer MEDICARE, MEDICAID, SELFPAY ==
[2024-03-15 09:36] VITALS: BMI 36.6
[2024-03-24 14:38] LABS: Absolute Lymphocyte Count 2.47 X10^3/uL (0.83-4.51); Absolute Neutrophil Count 7.5 X10^3/uL (2.0-7.7); Basophil# 0.06 X10^3/uL; Basophil% 0.6 % (0-1); Eosinophil# 0.02 X10^3/uL; Eosinophils% 0.2 % (0-5); Hematocrit 42.5 % (37-47); Hemoglobin 13.9 g/dL (12.0-15.0); Lymphocyte # 2.47 X10^3/ul (0.83-4.51); Lymphocyte % 23.3 % (19-41); Mean Corp Hgb Conc 32.7 g/dL (32-36); Mean Corpuscular Volume 88.5 fL (81-99); Mean Platelet Vol. 10.6 fl (6.2-12.0); Monocyte# 0.54 X10^3/uL; Monocyte% 5.1 % (0-10); NRBC Flagged by Analyzer 0 % (0-5); Neutrophil # 7.45 X10^3/uL (2.7-7.7); Neutrophil % 70.4 % (47-70); POSITIVE MORPHOLOGY YES; Platelet Count 198 K/mm3 (150-450); RBC Distribution Width CV 13.7 % (11.6-14.6); RBC Distribution Width SD 44.4 fl (35.1-43.9); White Blood Count 10.6 K/mm3 (4.4-11.0)
[2024-03-24 14:41] LABS: Differential Indicated SCAN CRITERIA MET
[2024-03-24 15:40] LABS: Differential Comment SCANNED
== END 2024-03-24 18:00 | disposition home or self-care (01) ==
LOC: LAB 13:52
PROVIDERS: Family Provider Family Medicine; Referring Provider Psychiatry & Neurology Psychiatry; Visit Provider Psychiatry & Neurology Psychiatry
DX: Z79.899 Other long term (current) drug therapy (principal)
CPT/HCPCS: 36415; 85025

== ENCOUNTER 2024-04-20 14:56 | Outpatient (RCR) | payer MEDICARE, MEDICAID, SELFPAY ==
[2024-04-11 22:37] VITALS: BMI 36.6
[2024-04-20 16:00] LABS: Absolute Lymphocyte Count 2.45 X10^3/uL (0.83-4.51); Absolute Neutrophil Count 5.3 X10^3/uL (2.0-7.7); Basophil# 0.04 X10^3/uL; Basophil% 0.5 % (0-1); Eosinophil# 0.01 X10^3/uL; Eosinophils% 0.1 % (0-5); Hematocrit 40.8 % (37-47); Hemoglobin 13.4 g/dL (12.0-15.0); Lymphocyte # 2.45 X10^3/ul (0.83-4.51); Lymphocyte % 28.9 % (19-41); Mean Corp Hgb Conc 32.8 g/dL (32-36); Mean Corpuscular Hgb 29.1 pg (27.0-32.0); Mean Corpuscular Volume 88.7 fL (81-99); Mean Platelet Vol. 11.8 fl (6.2-12.0); Monocyte# 0.61 X10^3/uL; Monocyte% 7.2 % (0-10); NRBC Flagged by Analyzer 0 % (0-5); Neutrophil # 5.32 X10^3/uL (2.7-7.7); Neutrophil % 62.8 % (47-70); Platelet Count 178 K/mm3 (150-450); RBC Distribution Width CV 13.7 % (11.6-14.6); RBC Distribution Width SD 44.3 fl (35.1-43.9); White Blood Count 8.5 K/mm3 (4.4-11.0)
== END 2024-05-12 18:00 | disposition home or self-care (01) ==
LOC: LAB 14:56
PROVIDERS: Family Provider Family Medicine; Referring Provider Psychiatry & Neurology Psychiatry; Visit Provider Psychiatry & Neurology Psychiatry
DX: Z79.899 Other long term (current) drug therapy (principal)
CPT/HCPCS: 36415; 85025

== ENCOUNTER → 2024-05-04 | Outpatient (CLI) | payer MEDICARE, MEDICAID, SELFPAY ==
--- NOTE | 2024-05-04 15:41 | CT_ITS ---
STUDY: LOW DOSE CT LUNG CANCER SCREENING REASON FOR EXAM: Female, 58 years old. SCREEN. Smoked 2 packs per day since age 14. Quitting 11 years ago RADIATION DOSAGE (If Supplied By Facility): CTDIvol = ( 3.02 ) mGy, DLP = ( 93.65 ) mGycm TECHNIQUE: No contrast was administered. Low dose technique was utilized (average mAS-38 and kVp 120). 1.25 mm axial source images with a slice interval of 1.25-mm were reconstructed in lung windows. Coronal and sagittal reformats submitted. COMPARISON: April 30, 2023, April 18, 2022, April 10, 2021 NODULES: No suspicious pulmonary nodules. Parenchyma: Subsegmental atelectasis in the lower lungs. No consolidation, effusion, or pneumothorax. Endobronchial lesion: No endobronchial lesion. Aorta: Aortic atherosclerosis without ectasia CORONARY ARTERIES: No densely calcified coronary atherosclerosis Heart: No cardiomegaly or pericardial effusion. Pulmonary artery: No main pulmonary arterial enlargement. Mediastinal nodes: Scattered subcentimeter calcified and noncalcified mediastinal and hilar lymph nodes, nonpathologic by size criteria compatible with sequela of prior granulomatous disease. Other chest and abdominal findings: Unremarkable thyroid. Unremarkable esophagus. No acute finding within the upper abdomen. CT/Low Dose CT Lung Screening IMPRESSION: No evidence of malignancy. Lung-RADS category 1 - Continue annual screening with LDCT in 12 months. IMPORTANT NOTES FOR USE: ACR Lung-RADS Version 1.1 Assessment Categories Release Date: 2018 Category: Coded 0-4 bases on nodule(s) with highest degree of suspicion. Negative screen is defined as categories 1 and 2; a positive screen is defined as categories 3 and 4. Category 3 and 4A nodules that are unchanged on interval CT should be coded as category 2, and individuals returned to screening in 12 months. Category 4X: Category 3 or 4 nodules with additional imaging findings that increase the suspicion of lung cancer, such as spiculation, GGN that doubles in size in 1 year, enlarged lymph notes, etc. Category Modifiers: S (significant finding unrelated to lung cancer) Electronically Signed: Quentin Kessler MD at 7:50 EDT ,
== END | disposition home or self-care (01) ==
LOC: CT 15:37
PROVIDERS: PCP Family Medicine; Referring Provider Internal Medicine Pulmonary Disease; Visit Provider Internal Medicine Pulmonary Disease
DX: Z87.891 Personal history of nicotine dependence (principal)
CPT/HCPCS: 71271

== ENCOUNTER 2024-06-03 13:02 | Outpatient (RCR) | payer MEDICARE, MEDICAID, SELFPAY ==
[2024-05-12 21:38] VITALS: BMI 36.6
[2024-06-03 14:26] LABS: Absolute Lymphocyte Count 2.19 X10^3/uL (0.83-4.51); Absolute Neutrophil Count 7.8 X10^3/uL (2.0-7.7); Basophil# 0.05 X10^3/uL; Basophil% 0.5 % (0-1); Eosinophil# 0.03 X10^3/uL; Eosinophils% 0.3 % (0-5); Hematocrit 40.4 % (37-47); Hemoglobin 13.2 g/dL (12.0-15.0); Lymphocyte # 2.19 X10^3/ul (0.83-4.51); Lymphocyte % 20.7 % (19-41); Mean Corp Hgb Conc 32.7 g/dL (32-36); Mean Corpuscular Hgb 28.9 pg (27.0-32.0); Mean Corpuscular Volume 88.4 fL (81-99); Mean Platelet Vol. 11.6 fl (6.2-12.0); Monocyte# 0.48 X10^3/uL; Monocyte% 4.5 % (0-10); NRBC Flagged by Analyzer 0 % (0-5); Neutrophil # 7.77 X10^3/uL (2.7-7.7); Neutrophil % 73.4 % (47-70); Platelet Count 202 K/mm3 (150-450); RBC Distribution Width CV 13.4 % (11.6-14.6); RBC Distribution Width SD 43.2 fl (35.1-43.9); Red Blood Count 4.57 M/mm3 (4.2-5.4); White Blood Count 10.6 K/mm3 (4.4-11.0)
== END 2024-06-03 18:00 | disposition home or self-care (01) ==
LOC: LAB 13:02
PROVIDERS: Family Provider Family Medicine; Referring Provider Psychiatry & Neurology Psychiatry; Visit Provider Psychiatry & Neurology Psychiatry
DX: Z79.899 Other long term (current) drug therapy (principal)
CPT/HCPCS: 36415; 85025

== ENCOUNTER 2024-06-23 10:51 | Outpatient (RCR) | payer MEDICARE, MEDICAID, SELFPAY ==
[2024-06-13 04:04] VITALS: BMI 36.6
[2024-06-23 11:35] LABS: Absolute Lymphocyte Count 2.07 X10^3/uL (0.83-4.51); Absolute Neutrophil Count 5.6 X10^3/uL (2.0-7.7); Basophil# 0.04 X10^3/uL; Basophil% 0.5 % (0-1); Eosinophil# 0.02 X10^3/uL; Eosinophils% 0.2 % (0-5); Hematocrit 41.3 % (37-47); Hemoglobin 13.3 g/dL (12.0-15.0); Lymphocyte # 2.07 X10^3/ul (0.83-4.51); Lymphocyte % 24.6 % (19-41); Mean Corp Hgb Conc 32.2 g/dL (32-36); Mean Corpuscular Hgb 28.4 pg (27.0-32.0); Mean Corpuscular Volume 88.1 fL (81-99); Mean Platelet Vol. 9.8 fl (6.2-12.0); Monocyte% 7.1 % (0-10); NRBC Flagged by Analyzer 0 % (0-5); Neutrophil # 5.64 X10^3/uL (2.7-7.7); Neutrophil % 66.9 % (47-70); Platelet Count 218 K/mm3 (150-450); RBC Distribution Width CV 13.6 % (11.6-14.6); RBC Distribution Width SD 43.7 fl (35.1-43.9); Red Blood Count 4.69 M/mm3 (4.2-5.4); White Blood Count 8.4 K/mm3 (4.4-11.0)
== END 2024-06-23 18:00 | disposition home or self-care (01) ==
LOC: LAB 10:51
PROVIDERS: Family Provider Family Medicine; Referring Provider Psychiatry & Neurology Psychiatry; Visit Provider Psychiatry & Neurology Psychiatry
DX: Z79.899 Other long term (current) drug therapy (principal)
CPT/HCPCS: 36415; 85025

== ENCOUNTER 2024-07-21 09:23 | Outpatient (RCR) | payer MEDICARE, MEDICAID, SELFPAY ==
[2024-07-13 04:06] VITALS: BMI 36.6
[2024-07-21 09:52] LABS: Absolute Lymphocyte Count 1.52 X10^3/uL (0.83-4.51); Basophil# 0.04 X10^3/uL; Basophil% 0.6 % (0-1); Differential Indicated SCAN CRITERIA MET; Eosinophil# 0.01 X10^3/uL; Eosinophils% 0.1 % (0-5); Hematocrit 41.1 % (37-47); Hemoglobin 13.4 g/dL (12.0-15.0); Lymphocyte # 1.52 X10^3/ul (0.83-4.51); Lymphocyte % 21.3 % (19-41); Mean Corp Hgb Conc 32.6 g/dL (32-36); Mean Corpuscular Hgb 28.6 pg (27.0-32.0); Mean Corpuscular Volume 87.8 fL (81-99); Mean Platelet Vol. 9.5 fl (6.2-12.0); Monocyte# 0.54 X10^3/uL; Monocyte% 7.6 % (0-10); NRBC Flagged by Analyzer 0 % (0-5); Neutrophil # 5.01 X10^3/uL (2.7-7.7); POSITIVE MORPHOLOGY YES; Platelet Count 203 K/mm3 (150-450); RBC Distribution Width CV 13.7 % (11.6-14.6); RBC Distribution Width SD 43.8 fl (35.1-43.9); Red Blood Count 4.68 M/mm3 (4.2-5.4); White Blood Count 7.2 K/mm3 (4.4-11.0)
[2024-07-21 10:40] LABS: Differential Comment SCANNED
[2024-07-22 13:55] LABS: Pathologist Review Reviewed
== END 2024-07-21 18:00 | disposition home or self-care (01) ==
LOC: LAB 09:23
PROVIDERS: Family Provider Family Medicine; Referring Provider Psychiatry & Neurology Psychiatry; Visit Provider Psychiatry & Neurology Psychiatry
DX: Z79.899 Other long term (current) drug therapy (principal)
CPT/HCPCS: 36415; 85025

== ENCOUNTER 2024-08-25 14:31 | Outpatient (RCR) | payer MEDICARE, MEDICAID, SELFPAY ==
[2024-08-12 20:47] VITALS: BMI 36.6
[2024-08-25 16:34] LABS: Absolute Lymphocyte Count 2.76 X10^3/uL (0.83-4.51); Absolute Neutrophil Count 6.9 X10^3/uL (2.0-7.7); Basophil# 0.05 X10^3/uL; Basophil% 0.5 % (0-1); Eosinophil# 0.03 X10^3/uL; Eosinophils% 0.3 % (0-5); Hematocrit 44.1 % (37-47); Hemoglobin 14.4 g/dL (12.0-15.0); Lymphocyte # 2.76 X10^3/ul (0.83-4.51); Lymphocyte % 26.1 % (19-41); Mean Corp Hgb Conc 32.7 g/dL (32-36); Mean Corpuscular Hgb 28.9 pg (27.0-32.0); Mean Corpuscular Volume 88.4 fL (81-99); Mean Platelet Vol. 11.1 fl (6.2-12.0); Monocyte# 0.75 X10^3/uL; Monocyte% 7.1 % (0-10); NRBC Flagged by Analyzer 0 % (0-5); Neutrophil # 6.87 X10^3/uL (2.7-7.7); Neutrophil % 65.1 % (47-70); Platelet Count 252 K/mm3 (150-450); RBC Distribution Width CV 13.7 % (11.6-14.6); RBC Distribution Width SD 44.1 fl (35.1-43.9); Red Blood Count 4.99 M/mm3 (4.2-5.4); White Blood Count 10.6 K/mm3 (4.4-11.0)
== END 2024-09-11 18:00 | disposition home or self-care (01) ==
LOC: LAB 14:31
PROVIDERS: Family Provider Family Medicine; PCP Clinical Nurse Specialist Adult Health; Referring Provider Psychiatry & Neurology Psychiatry; Visit Provider Psychiatry & Neurology Psychiatry
DX: Z79.899 Other long term (current) drug therapy (principal)

== ENCOUNTER 2024-09-16 15:21 | Outpatient (RCR) | payer MEDICARE, MEDICAID, SELFPAY ==
[2024-09-11 23:34] VITALS: BMI 36.6
[2024-09-16 16:44] LABS: Absolute Neutrophil Count 4.6 X10^3/uL (2.0-7.7); Basophil# 0.04 X10^3/uL; Basophil% 0.5 % (0-1); Eosinophil# 0.03 X10^3/uL; Eosinophils% 0.4 % (0-5); Hematocrit 41.7 % (37-47); Hemoglobin 13.7 g/dL (12.0-15.0); Lymphocyte % 33.5 % (19-41); Mean Corp Hgb Conc 32.9 g/dL (32-36); Mean Corpuscular Volume 88.2 fL (81-99); Mean Platelet Vol. 11.3 fl (6.2-12.0); Monocyte# 0.44 X10^3/uL; Monocyte% 5.7 % (0-10); NRBC Flagged by Analyzer 0 % (0-5); Neutrophil # 4.61 X10^3/uL (2.7-7.7); Neutrophil % 59.5 % (47-70); POSITIVE MORPHOLOGY YES; Platelet Count 198 K/mm3 (150-450); RBC Distribution Width SD 44.5 fl (35.1-43.9); Red Blood Count 4.73 M/mm3 (4.2-5.4); White Blood Count 7.8 K/mm3 (4.4-11.0)
[2024-09-16 16:47] LABS: Differential Indicated SCAN CRITERIA MET
[2024-09-16 17:58] LABS: Differential Comment SCANNED
== END 2024-09-16 18:00 | disposition home or self-care (01) ==
LOC: LAB 15:21
PROVIDERS: Family Provider Family Medicine; PCP Clinical Nurse Specialist Adult Health; Referring Provider Psychiatry & Neurology Psychiatry; Visit Provider Psychiatry & Neurology Psychiatry
DX: Z79.899 Other long term (current) drug therapy (principal)
CPT/HCPCS: 36415; 85025

== ENCOUNTER 2024-10-14 08:47 | Outpatient (RCR) | payer MEDICARE, MEDICAID, SELFPAY ==
[2024-10-13 04:23] VITALS: BMI 36.6
[2024-10-14 09:47] LABS: Absolute Lymphocyte Count 1.45 X10^3/uL (0.83-4.51); Absolute Neutrophil Count 5.8 X10^3/uL (2.0-7.7); Basophil# 0.04 X10^3/uL; Basophil% 0.5 % (0-1); Eosinophil# 0.03 X10^3/uL; Eosinophils% 0.4 % (0-5); Hematocrit 44.2 % (37-47); Hemoglobin 14.4 g/dL (12.0-15.0); Lymphocyte # 1.45 X10^3/ul (0.83-4.51); Lymphocyte % 17.9 % (19-41); Mean Corp Hgb Conc 32.6 g/dL (32-36); Mean Corpuscular Hgb 29.3 pg (27.0-32.0); Mean Platelet Vol. 11.1 fl (6.2-12.0); Monocyte# 0.77 X10^3/uL; Monocyte% 9.5 % (0-10); NRBC Flagged by Analyzer 0 % (0-5); Neutrophil # 5.78 X10^3/uL (2.7-7.7); Neutrophil % 71.1 % (47-70); Platelet Count 196 K/mm3 (150-450); RBC Distribution Width SD 45.5 fl (35.1-43.9); Red Blood Count 4.91 M/mm3 (4.2-5.4); White Blood Count 8.1 K/mm3 (4.4-11.0)
== END 2024-10-14 18:00 | disposition home or self-care (01) ==
LOC: LAB 08:47
PROVIDERS: Family Provider Family Medicine; PCP Clinical Nurse Specialist Adult Health; Referring Provider Psychiatry & Neurology Psychiatry; Visit Provider Psychiatry & Neurology Psychiatry
DX: Z79.899 Other long term (current) drug therapy (principal)
CPT/HCPCS: 36415; 85025

== ENCOUNTER 2024-10-14 15:02 | Emergency (ER) | payer MEDICARE, MEDICAID, SELFPAY ==
[2024-10-14 15:03] VITALS: BP 128/71; PULSE 118; RESP 16; TEMP 36.4; O2SAT 93
--- NOTE | 2024-10-14 15:43 | EDS_ITS ---
HPI History of Present Illness Chief Complaint: Nausea/Vomiting/Diarrhea [facility] Medical History Anxiety and depression COPD (chronic obstructive pulmonary disease) GERD (gastroesophageal reflux disease) HTN (hypertension) Hyperlipidemia Obesity LIDA on CPAP Restless leg syndrome Schizophrenia Type 2 diabetes mellitus Home Medications ?Medication ?Instructions ?Recorded ?Last Taken ?Type cholecalciferol (vitamin D3) 25 1,000 unit PO DAILY SUPPLEMENT 10/17/17 07/30/21 History mcg (1,000 unit) capsule (Vitamin D3) aspirin 325 mg tablet,delayed 325 mg PO DAILY@1600 heart health 07/22/18 07/30/21 History release omeprazole 20 mg capsule,delayed 20 mg PO DAILY indigestion 10/31/19 07/30/21 History release potassium chloride 20 mEq 20 meq PO DAILY supplement 11/16/19 07/30/21 History tablet,extended release(part/cryst) clozapine 100 mg tablet 100 mg PO 4X/DAY SCHIZOPHRENIA 07/30/21 07/30/21 History empagliflozin 10 mg tablet 10 mg PO DAILY diabetes 07/30/21 07/30/21 History (Jardiance) furosemide 20 mg tablet 20 mg PO DAILY FLUID 07/30/21 07/30/21 History insulin glargine 100 unit/mL (3 48 unit subcut DAILY@1600 DM 07/30/21 07/30/21 History mL) subcutaneous pen (Lantus Solostar U-100 Insulin) metoprolol succinate 25 mg 25 mg PO QHS HTN 07/30/21 07/29/21 History tablet,extended release 24 hr clonazepam 0.5 mg tablet 1 mg PO BID schizophrenia 06/05/22 Unknown History ferrous sulfate 325 mg (65 mg 325 mg PO .BID with meals anemia 06/05/22 Unknown History iron) tablet (Feosol) pramipexole 0.5 mg tablet 0.25 mg PO QHS restless legs 06/05/22 Unknown History atorvastatin 10 mg tablet 10 mg PO DAILY Cholesterol 08/14/23 Unknown History guaifenesin 1,200 mg tablet, 1,200 mg PO DAILY congestion 08/14/23 Unknown History extended release 12 hr (Mucus Relief ER) haloperidol 2 mg tablet 2 mg PO QHS anxiety 08/14/23 Unknown History metformin 500 mg tablet,extended 1,000 mg PO BID Diabetes 08/14/23 Unknown History release 24 hr benztropine 0.5 mg tablet 0.5 mg PO BID tremors 08/15/23 Unknown History doxycycline hyclate 100 mg tablet 100 mg PO BID 7 days #14 tabs 08/16/23 Unknown Rx guaifenesin 1,200 mg tablet, 1,200 mg PO BID #20 tabs 08/16/23 Unknown Rx extended release 12 hr (Mucus Relief ER) prednisone 20 mg tablet 20 mg PO BID #14 tabs 08/16/23 Unknown Rx ondansetron 4 mg disintegrating 4 mg PO Q8H PRN PRN Nausea #14 tabs 12/13/23 Unknown Rx tablet peg 3350-electrolytes 236 240 ml PO Q10M PRN #4,000 mL 12/13/23 Unknown Rx gram-22.74 gram-6.74 gram-5.86 gram solution (Golytely) ondansetron 4 mg disintegrating 4 mg PO Q8H PRN PRN Nausea #10 tabs 10/14/24 Unknown Rx tablet Allergy/AdvReac Type Severity Reaction Status Date / Time No Known Allergies Allergy Verified 12/13/23 18:16 Family History Mother Heart disease Hypertension Father COPD (chronic obstructive pulmonary disease) Cancer Surgical History History of cholecystectomy History of mandibular surgery Social History housing: other details: skilled nursing. Smoking Status: Former smoker how long ago did patient quit smoking: Quit 10 years prior to 08/14/23 presentation, 2 ppd since teen until quit. alcohol intake: never substance use type: does not use EXAM Physical Exam Const Vital Signs: 10/14/24 15:03 10/14/24 17:44 Temperature 97.5 F L Temperature Source Temporal Pulse Rate 118 H 105 H Respiratory Rate 16 18 Blood Pressure 128/71 H 134/85 H Blood Pressure Mean 90 101 Pulse Ox 93 94 Oxygen Delivery Method Room Air Room Air MDM MDM MDM Narrative Medical decision making narrative: HISTORY OF PRESENT ILLNESS: 58-year-old female presents from [facility] with concern for nausea vomiting diarrhea. This is noted to begin at 10 AM. Noted sick contacts other members of the [facility] who have norovirus. The patient states she had copious nausea and vomiting at 10 AM. Also notes diarrhea. Notes some blood in her stool. Denies fever. Denies recent travel. No sick contacts at her [place] [facility]. Denies chest pain. She does note chronic shortness of breath as well. She does note a cough as well. Denies urinary complaints. Last bowel movement was today. REVIEW OF SYSTEMS: Pertinent positives: Nausea vomiting diarrhea Pertinent negatives: Chest pain PHYSICAL EXAM: Nursing triage notes reviewed, Vital signs reviewed Constitutional: please see mdm HENT: MMM Eyes: Pupils equal round and reactive to light, Extraocular muscles intact Neck: No stridor, no JVD, full neck ROM Lungs: Clear to auscultation, No wheezing or rales. No increased work of breathing, no conversational dyspnea, no accessory muscle use, no nasal flaring. No respiratory distress noted Heart: Regular rate and rhythm, No murmurs, No rubs and No gallops, 2+ distal pulses (radial, femoral, posterior tibial) in all extremities Abdomen: Soft, rigidity, rebound or guarding, no obvious peritoneal signs, no palpable pulsatile abdominal masses, no auscultated abdominal bruit : No CVAT Extremities: No edema Neuro: No new focal neurological deficits, cranial nerves II through XII intact, 5/5 strength in all present extremities. Intact sensation to light touch in all present extremities, 2+ reflexes bilateral patella tendons. Skin: No rash or lesions noted MEDICAL DECISION MAKING: Chief Complaint: Nausea vomiting diarrhea External records reviewed: Reviewed prior allergies, problem list, vital signs, current medications, Reviewed prior imaging of the abdomen and pelvis. Reviewed CT scan from December 2023 which showed moderate stool, constipation but no other acute abnormality Factors affecting care: Hypertension, hyperlipidemia, type 2 diabetes, schizophrenia, GERD, COPD Social determinants of health: [facility] member History obtained from others: none Consults: none [facility] Narrative: Patient was initially tachycardic, otherwise afebrile saturating acceptable 92% on room air given her COPD. Lungs with coarse breath sounds bilaterally. Abdomen soft nontender nondistended I considered the following differential diagnosis: Dehydration, viral gastroenteritis, pancreatitis, hepatobiliary obstruction, electrolyte disturbance, arrhythmia, pneumonia I obtained a broad lab and imaging workup to further elucidate etiology of patient's complaints. I treated patient initially with 5 cc bolus normal saline, 4 mg IV Zofran I will considered bowel obstruction, perforation or other surgical abdominal pathology the patient had a benign abdominal exam. History and physical exam not consistent with an acute surgical emergency of the abdomen or pelvis ALL IMAGES (IF OBTAINED) HAVE BEEN PERSONALLY REVIEWED AND INTERPRETED BY MYSELF. I have personally reviewed the patient's chest x-ray. Chest x-ray is unremarkable for pulmonary edema, pneumothorax, pneumonia or focal cardiopulmonary abnormality. Lipase elevated consistent with pancreatic inflammation CBC with marked leukocytosis, no anemia or thrombocytopenia BMP with mild hyponatremia, no other significant electrolyte abnormalities, no evidence of metabolic acidosis or endorgan hypoperfusion with normal bicarb and anion gap High-sensitivity troponin is negative, no evidence of myocardial ischemia EKG with sinus tachycardia rate of 110, normal axis, no intervals, no STEMI I suspect the patient's lab abnormalities including leukocytosis and mild elevation in lipase are related to her viral gastroenteritis . Likely secondary to norovirus as there is multiple members in her [place] [facility] with similar symptoms. Abdominal exam remained benign. I still do not suspect the patient having an acute surgical abdominal emergency. She is able tolerate p.o. Patient is appropriate discharge home with written for Zofran and instructions to take more p.o. fluid. The patient and/or family, caregivers express understanding. The patient and/or family, caregivers agrees with the plan. Shared decision making: I will have a discussion with the patient and or visitors regarding risk/benefits of further testing or admission. They will be made aware of of the risk/benefits inherent in this decision they will be given the opportunity to voice understanding. Total critical care time today provided was at least 0 minutes. This excludes separately billable procedures. Critical care time (if documented) is secondary to the patient having high probability of clinically significant/life threatening deterioration in the patient's condition which required my urgent intervention. Impression: 1. Acute nausea vomiting diarrhea 2. Tachycardia 3. Cough 4. Elevated lipase 5. Leukocytosis Dispo: Discharge home This note was generated with [employer] dictation software. It may contain incorrect words, spelling, and punctuation that were not noted in review of the chart prior to signing. Lab Data Labs: Laboratory Results - last 24 hr 10/14/24 16:15 WBC 19.5 H RBC 5.19 Hgb 15.1 H Hct 45.8 MCV 88.2 MCH 29.1 MCHC 33.0 RDW Std Deviation 44.6 H RDW Coeff of Tyesha 13.9 Plt Count 217 MPV 9.6 Sodium 129 L Potassium 4.0 Chloride 96 L Carbon Dioxide 23.0 Anion Gap 10 BUN 18 Creatinine 0.58 Est GFR (MDRD) Af Amer 137 Est GFR (MDRD) Non-Af 113 BUN/Creatinine Ratio 31.2 H Glucose 171 H Calcium 8.9 Total Bilirubin 0.50 AST 29 ALT 49 Alkaline Phosphatase 110 Troponin I High Sens < 3 L Total Protein 7.5 Albumin 3.5 Globulin 4.0 Albumin/Globulin Ratio 0.9 Lipase 176 H Radiography Diagnostic Testing: Clinical Impression(s) from Imaging Studies Chest X-Ray 10/14/24 16:23 IMPRESSION: Left basilar atelectasis. Electronically Signed: Sid Ayala DO at 16:48 EST Reading Location ID and State: [facility] / [place] Tel [phone], Service support , Discharge Plan Triage Chief Complaint: Nausea/Vomiting/Diarrhea ED Provider: Tae Holland Dx/Rx/DC Orders Clinical Impression: Nausea & vomiting Instructions: ED Vomiting (Adult) Prescriptions: New ondansetron 4 mg tablet,disintegrating 4 mg PO Q8H PRN PRN (Reason: Nausea) Qty: 10 0RF No Action cholecalciferol (vitamin D3) [Vitamin D3] 1,000 UNIT capsule 1,000 unit PO DAILY aspirin 325 MG tablet,delayed release (DR/EC) 325 mg PO DAILY@1600 omeprazole 20 MG capsule,delayed release(DR/EC) 20 mg PO DAILY potassium chloride 20 MEQ tablet 20 meq PO DAILY metoprolol succinate 25 mg Tablet Extended Release 24 Hr 25 mg PO QHS Jardiance 10 mg Tablet 10 mg PO DAILY furosemide 20 mg tablet 20 mg PO DAILY insulin glargine [Lantus Solostar U-100 Insulin] 100 unit/mL (3 mL) insulin pen 48 unit SUBCUT DAILY@1600 clozapine 100 MG tablet 100 mg PO 4X/DAY clonazepam 0.5 mg Tablet 1 mg PO BID pramipexole 0.5 mg Tablet 0.25 mg PO QHS Rx Instructions: Take half table PO at bedtime ferrous sulfate [Feosol] 325 mg (65 mg iron) Tablet 325 mg PO .BID with meals metformin 500 mg tablet extended release 24 hr 1,000 mg PO BID haloperidol 2 mg tablet 2 mg PO QHS guaifenesin [Mucus Relief ER] 1,200 mg tablet extended release 12hr 1,200 mg PO DAILY atorvastatin 10 mg tablet 10 mg PO DAILY benztropine 0.5 mg tablet 0.5 mg PO BID doxycycline hyclate 100 mg tablet 100 mg PO BID 7 Days Qty: 14 0RF prednisone 20 mg tablet 20 mg PO BID Qty: 14 0RF guaifenesin [Mucus Relief ER] 1,200 mg tablet extended release 12hr 1,200 mg PO BID Qty: 20 0RF ondansetron 4 mg tablet,disintegrating 4 mg PO Q8H PRN PRN (Reason: Nausea) Qty: 14 0RF peg 3350-electrolytes [Golytely] 236-22.74-6.74 -5.86 gram recon soln 240 ml PO Q10M PRN Qty: 4000 0RF Rx Instructions: until fecal effluent is clear Primary Care Provider: Shelia Villavicencio Referrals: Shelia Villavicencio, [facility] [Primary Care Provider] - Activity Restrictions/Additional Instructions: Thank you for trusting us with your care today! Please take Tylenol (2 pills, 650 mg), ibuprofen (2 pills, 400 mg) every 6 hours as needed for pain and fever control. Please take Zofran as needed for nausea vomiting control Please return to the emergency department if your symptoms change or worsen. Please follow with your primary care physician for further outpatient evaluation and management. Print Language: [place] Disposition Disposition: Home, Self Care
--- NOTE | 2024-10-14 15:58 | EKG12_ITS ---
Test Reason : CHEST PAIN Blood Pressure : */* mmHG Vent. Rate : 110 BPM Atrial Rate : 110 BPM P-R Int : 152 ms QRS Dur : 72 ms QT Int : 322 ms P-R-T Axes : 54 3 47 degrees QTcB Int : 435 ms Sinus tachycardia Low voltage QRS Septal infarct (cited on or before 05-Jun-2022) Abnormal ECG Confirmed by BOBBI SANDERS, JACOB ([id number]), web content editor ROSY CLINE ([id number]) on 10/15/2024 8:26:49 AM Referred By: Tae Holland Confirmed By: JACOB MARTINES MD
[2024-10-14] MEDS: 0.9% Normal Saline (500mL Bag) 500 ML 1000 ML IV (16:13)
[2024-10-14] MEDS: Ondansetron 4 MG/2 ML Vial IV (16:13)
--- NOTE | 2024-10-14 16:23 | RAD_ITS ---
INDICATION: Cough EXAMINATION/TECHNIQUE: X-RAY - XR Chest 1 View COMPARISON: FINDINGS: LINES/DEVICES: None. LUNGS: No consolidation, edema or effusion. Left basilar atelectasis. No pneumothorax. MEDIASTINUM AND CARDIOVASCULAR STRUCTURES: Cardiac silhouette not enlarged. Central airways and mediastinal contour are unremarkable. BONES AND SOFT TISSUES: Unremarkable. RAD/Chest 1 View (Portable) IMPRESSION: Left basilar atelectasis. Electronically Signed: Sid Ayala DO at 16:48 EST ,
[2024-10-14 16:26] LABS: Hematocrit 45.8 % (37-47); Hemoglobin 15.1 g/dL (12.0-15.0); Mean Corpuscular Hgb 29.1 pg (27.0-32.0); Mean Corpuscular Volume 88.2 fL (81-99); Mean Platelet Vol. 9.6 fl (6.2-12.0); Platelet Count 217 K/mm3 (150-450); RBC Distribution Width CV 13.9 % (11.6-14.6); RBC Distribution Width SD 44.6 fl (35.1-43.9); Red Blood Count 5.19 M/mm3 (4.2-5.4); White Blood Count 19.5 K/mm3 (4.4-11.0)
[2024-10-14 16:48] LABS: ALB/GLOB Ratio 0.9 RATIO (0.9-2.4); AST(SGOT) 29 U/L (15-37); Alanine Aminotransfer ALT/SGPT 49 U/L (13-56); Albumin, Serum 3.5 g/dL (3.2-5.0); Alkaline Phosphatase 110 U/L (45-117); Anion Gap 10 (5-15); BUN 18 mg/dL (7-18); BUN/Creat Ratio 31.2 RATIO (10-20); Calcium,Total 8.9 mg/dL (8.5-10.1); Chloride 96 mmol/L (98-107); Creatinine, Serum 0.58 mg/dL (0.55-1.02); EST Glomerular Filtration Rate 113 mL/min (>60); Est Glom Filt Rate - Afr Amer 137 mL/min (>60); Glucose 171 mg/dL (74-106); Lipase 176 U/L (13-75); Protein, Total 7.5 g/dL (6.4-8.2); Sodium Level 129 mmol/L (136-145); Troponin-I HS < 3 pg/mL (3.0-54.0)
[2024-10-14 17:44] VITALS: BP 134/85; PULSE 105; RESP 18; O2SAT 94
[2024-10-14 18:59] VITALS: BP 134/85; PULSE 105; RESP 18; TEMP 36.8; O2SAT 94
== END 2024-10-14 19:39 | disposition home or self-care (01) ==
PROVIDERS: Emergency Provider Emergency Medicine; PCP Clinical Nurse Specialist Adult Health; Referring Provider Emergency Medicine; Visit Provider Emergency Medicine
DX: R11.2 Nausea with vomiting, unspecified (principal); F20.9 Schizophrenia, unspecified; J44.9 Chronic obstructive pulmonary disease, unspecified; E11.9 Type 2 diabetes mellitus without complications; R00.0 Tachycardia, unspecified; R74.8 Abnormal levels of other serum enzymes; D72.829 Elevated white blood cell count, unspecified; R19.7 Diarrhea, unspecified; G47.33 Obstructive sleep apnea (adult) (pediatric); Z87.891 Personal history of nicotine dependence
CPT/HCPCS: 71045; 80053; 83690; 84484; 85027; 87631; 93005; 96361; 96374; 96376; 99285; A4216; J2405

== ENCOUNTER 2024-11-09 18:13 | Inpatient (IN) | payer MEDICARE, MEDICAID, SELFPAY ==
[2024-11-09] VITALS (11 sets, daily range): BP systolic 107–131; BP diastolic 65–77; PULSE 94–104; RESP 18–24; TEMP 36.6–37.2; O2SAT 92–100; BMI 35.0
--- NOTE | 2024-11-09 18:37 | EKG12_ITS ---
Test Reason : DYSRHYTHMIA Blood Pressure : */* mmHG Vent. Rate : 103 BPM Atrial Rate : 103 BPM P-R Int : 154 ms QRS Dur : 76 ms QT Int : 320 ms P-R-T Axes : 44 6 48 degrees QTcB Int : 419 ms Sinus tachycardia Low voltage QRS Septal infarct , age undetermined Abnormal ECG Confirmed by TAMMY SANDERS, GLORIA ([id number]), visual effects editor CRISTAL OTT ([id number]) on 11/11/2024 6:40:18 AM Referred By: Confirmed By: GLORIA MUNOZ MD
[2024-11-09 19:12] LABS: Absolute Lymphocyte Count 1.89 X10^3/uL (0.83-4.51); Absolute Neutrophil Count 8.8 X10^3/uL (2.0-7.7); Basophil# 0.06 X10^3/uL; Basophil% 0.5 % (0-1); Eosinophil# 0.01 X10^3/uL; Eosinophils% 0.1 % (0-5); Hematocrit 39.8 % (37-47); Hemoglobin 13.4 g/dL (12.0-15.0); Lymphocyte # 1.89 X10^3/ul (0.83-4.51); Lymphocyte % 15.5 % (19-41); Mean Corp Hgb Conc 33.7 g/dL (32-36); Mean Corpuscular Hgb 29.1 pg (27.0-32.0); Mean Corpuscular Volume 86.3 fL (81-99); Mean Platelet Vol. 9.3 fl (6.2-12.0); Monocyte# 1.47 X10^3/uL; NRBC Flagged by Analyzer 0 % (0-5); Neutrophil # 8.75 X10^3/uL (2.7-7.7); Neutrophil % 71.5 % (47-70); Platelet Count 239 K/mm3 (150-450); RBC Distribution Width CV 14.2 % (11.6-14.6); RBC Distribution Width SD 44.9 fl (35.1-43.9); Red Blood Count 4.61 M/mm3 (4.2-5.4); White Blood Count 12.2 K/mm3 (4.4-11.0)
--- NOTE | 2024-11-09 19:20 | RAD_ITS ---
PROCEDURE: CHEST 1 VIEW (PORTABLE) REASON FOR EXAM: Cough. Congestion. TECHNIQUE: Single frontal image including the chest and abdomen. COMPARISON: CT thorax dated 05/04/2024. Prior chest x-ray dated 10/24/2023 FINDINGS: The lungs are well aerated. Patchy bibasilar airspace disease/infiltrates slightly more confluent on the left. No pneumothorax. No sizeable effusions. Remaining lung markings otherwise appears stable. Heart size and great vesse ls are within normal limits. The osseous thorax appears intact. RAD/Chest 1 View (Portable) IMPRESSION: Patchy bibasilar airspace disease/infiltrates, slightly more confluent on the l eft. Correlate for an infectious or inflammatory process. Follow-up to resolution recommended. Reading [facility]In[facility] TechnologiesOPMAHIN
[2024-11-09 19:26] LABS: Bedside Glucose 154 mg/dL (74-106)
[2024-11-09 19:26] LABS: Anion Gap 9 (5-15); BUN 14 mg/dL (7-18); Calcium,Total 9.2 mg/dL (8.5-10.1); Chloride 100 mmol/L (98-107); Creatinine, Serum 0.56 mg/dL (0.55-1.02); EST Glomerular Filtration Rate 117 mL/min (>60); Est Glom Filt Rate - Afr Amer 142 mL/min (>60); Estimated Creatinine Clearance 105.16 ml/min; Glucose 164 mg/dL (74-106); Potassium 3.8 mmol/L (3.5-5.1); Sodium Level 130 mmol/L (136-145)
[2024-11-09] MEDS: Ipratropium/Albuterol Sulfate 3 ML AMPUL.NEB INHALATION ×2 (21:39→23:14)
[2024-11-09] MEDS: Ceftriaxone 1 GM/50 ML BAG IV (22:00)
--- NOTE | 2024-11-09 22:00 | ED.VIS.DYS ---
HPI History of Present Illness Chief Complaint: Shortness of Breath Informant: patient and mental health staff Narrative Narrative: 58-year-old female from mental health halfway presenting to the emergency room with fever and cough. There is reported that around the of this month she had a viral URI. 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 They recommended that she come to emergency when it was discovered that the group activities aide stated they cannot give her any medicine or breathing treatments tonight unless it was on a med sheet. They do not have med sheets for the new medication and they did not feel comfortable administering it. Patient notes that about 2 weeks ago she had some vomiting and diarrhea. That has resolved. She notes nasal congestion cough and wheezing. She had Tylenol around 1800 hrs. at the urgent care. She is a former smoker. She does have a history of COPD. [facility] Medical History LIDA on CPAP Obesity Anxiety and depression Type 2 diabetes mellitus COPD (chronic obstructive pulmonary disease) Restless leg syndrome GERD (gastroesophageal reflux disease) Schizophrenia HTN (hypertension) Hyperlipidemia Home Medications ?Medication ?Instructions ?Recorded ?Last Taken ?Type cholecalciferol (vitamin D3) 25 1,000 unit PO DAILY SUPPLEMENT 10/17/17 07/30/21 History mcg (1,000 unit) capsule (Vitamin D3) aspirin 325 mg tablet,delayed 325 mg PO DAILY@1600 heart health 07/22/18 07/30/21 History release omeprazole 20 mg capsule,delayed 20 mg PO DAILY indigestion 10/31/19 07/30/21 History release potassium chloride 20 mEq 20 meq PO DAILY supplement 11/16/19 07/30/21 History tablet,extended release(part/cryst) clozapine 100 mg tablet 100 mg PO 4X/DAY SCHIZOPHRENIA 07/30/21 07/30/21 History empagliflozin 10 mg tablet 10 mg PO DAILY diabetes 07/30/21 07/30/21 History (Jardiance) furosemide 20 mg tablet 20 mg PO DAILY FLUID 07/30/21 07/30/21 History insulin glargine 100 unit/mL (3 48 unit subcut DAILY@1600 DM 07/30/21 07/30/21 History mL) subcutaneous pen (Lantus Solostar U-100 Insulin) metoprolol succinate 25 mg 25 mg PO QHS HTN 07/30/21 07/29/21 History tablet,extended release 24 hr clonazepam 0.5 mg tablet 1 mg PO BID schizophrenia 06/05/22 Unknown History ferrous sulfate 325 mg (65 mg 325 mg PO .BID with meals anemia 06/05/22 Unknown History iron) tablet (Feosol) pramipexole 0.5 mg tablet 0.25 mg PO QHS restless legs 06/05/22 Unknown History atorvastatin 10 mg tablet 10 mg PO DAILY Cholesterol 08/14/23 Unknown History guaifenesin 1,200 mg tablet, 1,200 mg PO DAILY congestion 08/14/23 Unknown History extended release 12 hr (Mucus Relief ER) haloperidol 2 mg tablet 2 mg PO QHS anxiety 08/14/23 Unknown History metformin 500 mg tablet,extended 1,000 mg PO BID Diabetes 08/14/23 Unknown History release 24 hr benztropine 0.5 mg tablet 0.5 mg PO BID tremors 08/15/23 Unknown History doxycycline hyclate 100 mg tablet 100 mg PO BID 7 days #14 tabs 08/16/23 Unknown Rx guaifenesin 1,200 mg tablet, 1,200 mg PO BID #20 tabs 08/16/23 Unknown Rx extended release 12 hr (Mucus Relief ER) prednisone 20 mg tablet 20 mg PO BID #14 tabs 08/16/23 Unknown Rx ondansetron 4 mg disintegrating 4 mg PO Q8H PRN PRN Nausea #14 tabs 12/13/23 Unknown Rx tablet peg 3350-electrolytes 236 240 ml PO Q10M PRN #4,000 mL 12/13/23 Unknown Rx gram-22.74 gram-6.74 gram-5.86 gram solution (Golytely) ondansetron 4 mg disintegrating 4 mg PO Q8H PRN PRN Nausea #10 tabs 10/14/24 Unknown Rx tablet docusate sodium 100 mg capsule mg PO 11/09/24 Unknown History fluticasone furoate 100 inhalation DAILY 11/09/24 Unknown History mcg-vilanterol 25 mcg/dose inhalation powder (Breo Ellipta) gabapentin 100 mg capsule mg 3XD 11/09/24 Unknown History guaifenesin 600 mg tablet, mg PO 11/09/24 Unknown History extended release 12 hr (Mucus Relief ER) omega-3 fatty acids-fish oil 300 cap 11/09/24 Unknown History mg-1,000 mg capsule paliperidone palmitate 234 mg/1.5 mg IM 11/09/24 Unknown History mL intramuscular syringe (Invega Sustenna) umeclidinium 62.5 mcg/actuation inhalation DAILY 11/09/24 Unknown History blister powder for inhalation (Incruse Ellipta) Allergy/AdvReac Type Severity Reaction Status Date / Time No Known Allergies Allergy Verified 11/09/24 18:15 Family History Mother Heart disease Hypertension Father COPD (chronic obstructive pulmonary disease) Cancer Surgical History History of mandibular surgery History of cholecystectomy Social History housing: other details: [facility]. Smoking Status: Former smoker how long ago did patient quit smoking: Quit 10 years prior to 08/14/23 presentation, 2 ppd since teen until quit. alcohol intake: never substance use type: does not use ROS ROS ED Constitutional Constitutional ED: Reports chills and fever(s); Denies weight loss Eyes Eyes: Denies change in vision or diplopia ENT ENT ED: Reports rhinorrhea; Denies ear pain or sore throat Cardiovascular Cardiovascular: Denies chest pain, orthopnea, palpitations or racing heartbeat Respiratory/Chest Respiratory/Chest: Reports cough and dyspnea; Denies orthopnea Gastrointestinal Gastrointestinal: Reports diarrhea; Denies abdominal pain, nausea or vomiting Genitourinary Genitourinary ED: Denies dysuria, hematuria or urinary frequency Musculoskeletal Musculoskeletal: Denies arthralgias or myalgias Integumentary Denies abscess or rash Neurologic Neurologic: Reports headache(s); Denies weakness Psychiatric Psychiatric: Denies anxiety, depression, suicidal ideation or suicidal thoughts Endocrine Endocrinology: Denies polydipsia, polyphagia or polyuria Allergic/Immunologic Allergic/Immunologic ED: Denies mouth swelling, tongue swelling or urticaria EXAM Physical Exam Const Vital Signs: 11/09/24 18:15 11/09/24 20:18 11/09/24 20:19 Temperature 98.9 F 97.9 F Temperature Source Oral Oral Pulse Rate 98 104 H Respiratory Rate 18 22 H Respiratory Effort Respiratory Depth Respiratory Pattern Blood Pressure 122/77 H 131/69 H Blood Pressure Mean 92 89 Pulse Ox 98 93 Oxygen Delivery Method Room Air Room Air Room Air 11/09/24 20:25 11/09/24 20:41 11/09/24 20:43 Temperature Temperature Source Pulse Rate Respiratory Rate 22 H Respiratory Effort Short of Breath Short of Breath Respiratory Depth Normal Respiratory Pattern Tachypnea Tachypnea Blood Pressure Blood Pressure Mean Pulse Ox 93 Oxygen Delivery Method Room Air Room Air 11/09/24 20:59 11/09/24 21:39 11/09/24 22:00 Temperature 97.9 F 97.9 F Temperature Source Oral Oral Pulse Rate 94 97 99 Respiratory Rate 22 H 24 H 22 H Respiratory Effort Respiratory Depth Respiratory Pattern Tachypnea Blood Pressure 116/71 107/65 Blood Pressure Mean 86 79 Pulse Ox 100 92 Oxygen Delivery Method Room Air Room Air 11/09/24 23:00 Temperature 97.9 F Temperature Source Oral Pulse Rate 102 H Respiratory Rate 22 H Respiratory Effort Respiratory Depth Respiratory Pattern Blood Pressure 120/71 Blood Pressure Mean 87 Pulse Ox 98 Oxygen Delivery Method Room Air Positive well nourished and well developed General Appearance ED: well developed and NAD HEENT Reports normocephalic, head/scalp atraumatic and moist mucous membranes HEENT Narrative: Mild turbinate edema Eyes PERRL and EOMs intact bilaterally Neck no lymphadenopathy, supple and no JVD Resp Resp Narrative: Patient appears slightly tachypneic at rest. She has audible rhonchi and wheezing. Cardio regular rate, regular rhythm and no murmurs GI normal to inspection, nondistended, normoactive bowel sounds and non-tender Palpation: soft Back/Spine no CVA tenderness and normal ROM Extremity normal to inspection General Extremety ED: Negative for edema General Extremity: Negative for edema Neuro oriented x3 and CN's II-XII intact bilaterally Sensorium / Orientation: alert Motor Exam: strength 5/5 throughout Psych mental status grossly normal Mood & Affect: Negative for depressed or tearful Skin no rashes or lesions noted and no wounds MDM MDM MDM Narrative Medical decision making narrative: Differential diagnosis includes but not limited to COPD exacerbation pneumonia viral syndrome bronchitis bronchospasm pleural effusion congestive heart failure White count elevated 12.2 glucose 164 creatinine 0.56 sodium of 130 (history of hyponatremia). My independent interpretation of the chest x-ray has bibasilar pneumonia. Patient received breathing treatment as well as as Rocephin and azithromycin after blood cultures were obtained. COVID and influenza swabs were obtained. These were negative. Lactic acid is normal. After breathing treatments the patient still is tachypneic with expiratory wheezing. I ambulated her and she does not become hypoxic either at rest or with ambulation. However due to her increased work of breathing and the pneumonia and the fact that I cannot get her medications at home tonight such as an albuterol inhaler with her COPD I do not think it is unreasonable that we admit her here until we can ensure that she is able to get treatments at home. History & Record Review Discussion w/independent historian: Patient and Other Lab Data Attestation: I reviewed the patient's lab results. Labs: Laboratory Results - last 24 hr 11/09/24 11/09/24 11/09/24 19:02 19:07 21:59 WBC 12.2 H RBC 4.61 Hgb 13.4 Hct 39.8 MCV 86.3 MCH 29.1 MCHC 33.7 RDW Std Deviation 44.9 H RDW Coeff of Tyesha 14.2 Plt Count 239 MPV 9.3 Immature Gran % (Auto) 0.400 Neut % (Auto) 71.5 H Lymph % (Auto) 15.5 L Nolan % (Auto) 12.0 H Eos % (Auto) 0.1 Baso % (Auto) 0.5 Absolute Neuts (auto) 8.8 H Absolute Lymphs (auto) 1.89 Nucleated RBC % 0 PT 13.9 INR 1.1 Sodium 130 L Potassium 3.8 Chloride 100 Carbon Dioxide 21.0 Anion Gap 9 BUN 14 Creatinine 0.56 Estim Creat Clear Calc 105.16 Est GFR (MDRD) Af Amer 142 Est GFR (MDRD) Non-Af 117 BUN/Creatinine Ratio 25.0 H Glucose 164 H Lactic Acid 1.3 Calcium 9.2 Total Bilirubin 0.80 Direct Bilirubin 0.28 AST 83 H ALT 103 H Alkaline Phosphatase 188 H Total Protein 7.9 Albumin 3.5 Globulin 4.4 H POC Glucose 154 H Radiography Diagnostic Testing: Clinical Impression(s) from Imaging Studies Chest X-Ray 11/09/24 19:20 IMPRESSION: Patchy bibasilar airspace disease/infiltrates, slightly more confluent on the left. Correlate for an infectious or inflammatory process. Follow-up to resolution recommended. Reading Location: [facility] EKG Initial EKG: Attestation: I personally reviewed and interpreted this EKG as follows: Comments: Sinus tachycardia ventricular rate of 103 bpm Management Discussion w/another healthcare provider: Hospitalist (Dr. Claire) Discharge Plan Dx/Rx/DC Orders Clinical Impression: Pneumonia, COPD exacerbation Disposition Disposition: Acute Care Hospital [facility]
[2024-11-09 22:24] LABS: International Normalized Ratio 1.1; Prothrombin Time (Protime)PT. 13.9 SECONDS (11.7-14.9)
[2024-11-09] MEDS: MethylPREDNISolone 125 MG/2 ML Vial IV (22:24)
[2024-11-09] MEDS: 0.9% Normal Saline (1000mL) 1,000 ML 999 ML IV (22:24)
[2024-11-09] MEDS: Oxymetazoline 0.05% 1 SPRAY SPRAY.BTL 2 SPRAY NASAL (22:25)
[2024-11-09 22:27] LABS: AST(SGOT) 83 U/L (15-37); Alanine Aminotransfer ALT/SGPT 103 U/L (13-56); Albumin, Serum 3.5 g/dL (3.2-5.0); Alkaline Phosphatase 188 U/L (45-117); Bilirubin, Direct 0.28 mg/dL (0.00-0.30); Globulin 4.4 g/dL (2.2-4.2); Protein, Total 7.9 g/dL (6.4-8.2)
[2024-11-09 22:35] LABS: Lactic Acid 1.3 mmol/L (0.4-1.9)
[2024-11-09] MEDS: Azithromycin 500 MG in 0.9% Normal Saline (250mL Bag) 250 ML 255 MG IV (23:00)
--- NOTE | 2024-11-09 23:21 | PCM.HP.STD ---
[facility] Date of Admission: 11/09/24 Date of Service: 11/09/24 Chief Complaint: SOB and Wheezing. HPI Narrative BRENDA TAFOYA, is a 58 F with a past medical history of essential hypertension; on metoprolol and furosemide, hyperlipidemia; on atorvastatin, obesity; with BMI of 35.1 this admission, LIDA; on CPAP, DM-2; of unknown control; on metformin, empagliflozin and insulin glargine 48U daily, former tobacco abuse (quit ~9 years ago); with subsequent COPD, history of schizophrenia; on clozapine, depression with anxiety; on lorazepam BID and q. HS haloperidol, neuropathy; on gabapentin TID, history of tremors; on benztropine BID, RLS; on pramipexole, BILL; on ferrous sulfate, history of vitamin D deficiency, history of mandibular surgery, history of cholecystectomy and GERD; on omeprazole who resides at a local psychiatric assisted who presents to [facility] ER after staff noted patient complaining of shortness of breath and wheezing. Ms. Tafoya is not a fully-reliable historian at this time so information was primarily gathered from chart, medical staff and computer. According to the records the patient's transformer builder informed the ER physician that she first became ill around November 02, 2024 with a viral URI. She was subsequently taken to urgent care with patient suspected to have Pneumonia complicated by AE COPD with patient recommended to start antibiotic and steroid therapy but transformer builder unable to administer medications without a formal MAR to sign off on - which would not be available until tomorrow morning so she was brought in to the ER for further evaluation and treatment. Her transformer builder went on to report that she looked much more ill this evening with reports of nausea and vomiting ~2 weeks ago. The patient also complains of fever, chills, nasal congestion, cough and her wheezing can be heard from across the room. In the ER she was noted to have chest x-ray evidence of Bibasilar Pneumonia; more confluent on the Left with Leukocytosis of 12.2 K present on admission complicated by clinical evidence of AE COPD with Acute Respiratory Insufficiency compounded by laboratory evidence of mild Hyponatremia of 130 mmol/L present on admission and she was then admitted to the general medical floor for ongoing care for a stay that is expected to extend beyond 2 midnights. [facility] Medical History Schizophrenia LIDA on CPAP Obesity Anxiety and depression Type 2 diabetes mellitus COPD (chronic obstructive pulmonary disease) Restless leg syndrome GERD (gastroesophageal reflux disease) HTN (hypertension) Hyperlipidemia Home Medications ?Medication ?Instructions ?Recorded ?Last Taken ?Type cholecalciferol (vitamin D3) 25 1,000 unit PO DAILY SUPPLEMENT 10/17/17 07/30/21 History mcg (1,000 unit) capsule (Vitamin D3) aspirin 325 mg tablet,delayed 325 mg PO DAILY@1600 heart health 07/22/18 07/30/21 History release omeprazole 20 mg capsule,delayed 20 mg PO DAILY indigestion 10/31/19 07/30/21 History release potassium chloride 20 mEq 20 meq PO DAILY supplement 11/16/19 07/30/21 History tablet,extended release(part/cryst) clozapine 100 mg tablet 100 mg PO 4X/DAY SCHIZOPHRENIA 07/30/21 07/30/21 History empagliflozin 10 mg tablet 10 mg PO DAILY diabetes 07/30/21 07/30/21 History (Jardiance) furosemide 20 mg tablet 20 mg PO DAILY FLUID 07/30/21 07/30/21 History insulin glargine 100 unit/mL (3 48 unit subcut DAILY@1600 DM 07/30/21 07/30/21 History mL) subcutaneous pen (Lantus Solostar U-100 Insulin) metoprolol succinate 25 mg 25 mg PO QHS HTN 07/30/21 07/29/21 History tablet,extended release 24 hr clonazepam 0.5 mg tablet 1 mg PO BID schizophrenia 06/05/22 Unknown History ferrous sulfate 325 mg (65 mg 325 mg PO .BID with meals anemia 06/05/22 Unknown History iron) tablet (Feosol) pramipexole 0.5 mg tablet 0.25 mg PO QHS restless legs 06/05/22 Unknown History atorvastatin 10 mg tablet 10 mg PO DAILY Cholesterol 08/14/23 Unknown History guaifenesin 1,200 mg tablet, 1,200 mg PO DAILY congestion 08/14/23 Unknown History extended release 12 hr (Mucus Relief ER) haloperidol 2 mg tablet 2 mg PO QHS anxiety 08/14/23 Unknown History metformin 500 mg tablet,extended 1,000 mg PO BID Diabetes 08/14/23 Unknown History release 24 hr benztropine 0.5 mg tablet 0.5 mg PO BID tremors 08/15/23 Unknown History doxycycline hyclate 100 mg tablet 100 mg PO BID 7 days #14 tabs 08/16/23 Unknown Rx guaifenesin 1,200 mg tablet, 1,200 mg PO BID #20 tabs 08/16/23 Unknown Rx extended release 12 hr (Mucus Relief ER) prednisone 20 mg tablet 20 mg PO BID #14 tabs 08/16/23 Unknown Rx ondansetron 4 mg disintegrating 4 mg PO Q8H PRN PRN Nausea #14 tabs 12/13/23 Unknown Rx tablet peg 3350-electrolytes 236 240 ml PO Q10M PRN #4,000 mL 12/13/23 Unknown Rx gram-22.74 gram-6.74 gram-5.86 gram solution (Golytely) ondansetron 4 mg disintegrating 4 mg PO Q8H PRN PRN Nausea #10 tabs 10/14/24 Unknown Rx tablet docusate sodium 100 mg capsule mg PO 11/09/24 Unknown History fluticasone furoate 100 inhalation DAILY 11/09/24 Unknown History mcg-vilanterol 25 mcg/dose inhalation powder (Breo Ellipta) gabapentin 100 mg capsule mg 3XD 11/09/24 Unknown History guaifenesin 600 mg tablet, mg PO 11/09/24 Unknown History extended release 12 hr (Mucus Relief ER) omega-3 fatty acids-fish oil 300 cap 11/09/24 Unknown History mg-1,000 mg capsule paliperidone palmitate 234 mg/1.5 mg IM 11/09/24 Unknown History mL intramuscular syringe (Invega Sustenna) umeclidinium 62.5 mcg/actuation inhalation DAILY 11/09/24 Unknown History blister powder for inhalation (Incruse Ellipta) Allergy/AdvReac Type Severity Reaction Status Date / Time No Known Allergies Allergy Verified 11/09/24 18:15 Family History Mother Heart disease Hypertension Father COPD (chronic obstructive pulmonary disease) Cancer Surgical History History of mandibular surgery History of cholecystectomy Social History housing: other details: [facility]. Smoking Status: Former smoker how long ago did patient quit smoking: Quit 10 years prior to 08/14/23 presentation, 2 ppd since teen until quit. alcohol intake: never substance use type: does not use ROS ROS Narrative Review of Systems: Constitutional: Patient admits to fever and chills. Eyes: Patient denies changes in vision or discharge from eyes. ENT: Patient admits to runny nose but she denies sore throat or ear pain. Resp: Patient admits to shortness of breath and cough with wheezing audible from across room as per HPI. CV: Patient denies chest pain, heart racing, palpitations or lower extremity edema. GI: Patient admits to loose stools but she denies abdominal pain, nausea or vomiting. : Patient denies dysuria, hematuria or urinary frequency. MSK: Patient denies arthralgias or myalgias. Skin: Patient denies rash, abscess, jaundice or wounds. Psych: Patient denies symptoms of uncontrolled depression or anxiety. Neuro: Patient admits to mild tension-type headache but she denies paresthesias or focal neurologic deficits. Allergy: Patient denies lip swelling, tongue swelling or urticaria. Hematology: Patient denies easy bleeding or easy bruisability. Endocrinology: Patient denies polyuria, polydipsia or polyphagia. 14 point review systems otherwise negative except for positives noted above in HPI. Vital Signs Vital Signs Vital Signs: 11/09/24 18:15 11/09/24 20:18 11/09/24 20:19 Temperature 98.9 F 97.9 F Temperature Source Oral Oral Pulse Rate 98 104 H Respiratory Rate 18 22 H Respiratory Effort Respiratory Depth Respiratory Pattern Blood Pressure 122/77 H 131/69 H Blood Pressure Mean 92 89 Pulse Ox 98 93 Oxygen Delivery Method Room Air Room Air Room Air 11/09/24 20:25 11/09/24 20:41 11/09/24 20:43 Temperature Temperature Source Pulse Rate Respiratory Rate 22 H Respiratory Effort Short of Breath Short of Breath Respiratory Depth Normal Respiratory Pattern Tachypnea Tachypnea Blood Pressure Blood Pressure Mean Pulse Ox 93 Oxygen Delivery Method Room Air Room Air 11/09/24 20:59 11/09/24 21:39 11/09/24 22:00 Temperature 97.9 F 97.9 F Temperature Source Oral Oral Pulse Rate 94 97 99 Respiratory Rate 22 H 24 H 22 H Respiratory Effort Respiratory Depth Respiratory Pattern Tachypnea Blood Pressure 116/71 107/65 Blood Pressure Mean 86 79 Pulse Ox 100 92 Oxygen Delivery Method Room Air Room Air 11/09/24 23:00 Temperature 97.9 F Temperature Source Oral Pulse Rate 102 H Respiratory Rate 22 H Respiratory Effort Respiratory Depth Respiratory Pattern Blood Pressure 120/71 Blood Pressure Mean 87 Pulse Ox 98 Oxygen Delivery Method Room Air Weight Weight: 185 lb 9.6 oz Body Mass Index (BMI) 35.0 Physical Exam Const alert, oriented x3 and no apparent distress Constitutional Narrative: Obese. General Appearance: cooperative HEENT normocephalic, head/scalp atraumatic, hearing grossly normal bilaterally and moist oral mucous membranes Eyes PERRL and EOMs intact bilaterally Neck no lymphadenopathy and supple Resp Resp Narrative: Diminished breath sounds throughout with scattered wheezing and audible rhonchi. Auscultation: rhonchi and wheezes Cardio regular rate and regular rhythm GI normal to inspection, nondistended, normoactive bowel sounds, soft to palpation, non-tender and non-distended GI Narrative: Obese. Extremity normal to inspection, full ROM and no clubbing, cyanosis or edema Skin Skin Narrative: Patient has no evidence of rash, abscess, wound or jaundice. Neuro oriented x3, CN's II-XII intact bilaterally, moves all extremities and no focal motor deficits Sensorium / Orientation: awake, alert, oriented to person, oriented to place and oriented to time Speech: speech normal Psych affect normal Results Medical Records Data Attestation: I reviewed the patient's medical records Lab / Micro Data Attestation: I reviewed the patient's lab results. 11/09/24 19:07 11/09/24 19:07 Labs: Laboratory Results - last 24 hr 11/09/24 19:02: POC Glucose 154 H 11/09/24 19:07: WBC 12.2 H, RBC 4.61, Hgb 13.4, Hct 39.8, MCV 86.3, MCH 29.1, MCHC 33.7, RDW Std Deviation 44.9 H, RDW Coeff of Tyesha 14.2, Plt Count 239, MPV 9.3, Immature Gran % (Auto) 0.400, Neut % (Auto) 71.5 H, Lymph % (Auto) 15.5 L, [place] % (Auto) 12.0 H, Eos % (Auto) 0.1, Baso % (Auto) 0.5, Absolute Neuts (auto) 8.8 H, Absolute Lymphs (auto) 1.89, Nucleated RBC % 0, Sodium 130 L, Potassium 3.8, Chloride 100, Carbon Dioxide 21.0, Anion Gap 9, BUN 14, Creatinine 0.56, Estim Creat Clear Calc 105.16, Est GFR (MDRD) Af Amer 142, Est GFR (MDRD) Non-Af 117, BUN/Creatinine Ratio 25.0 H, Glucose 164 H, Calcium 9.2, Total Bilirubin 0.80, Direct Bilirubin 0.28, AST 83 H, ALT 103 H, Alkaline Phosphatase 188 H, Total Protein 7.9, Albumin 3.5, Globulin 4.4 H 11/09/24 21:59: PT 13.9, INR 1.1, Lactic Acid 1.3 Micro: Microbiology 11/09/24 21:42 Mucosa - Nose SARS-CoV-2, Influenza & RSV (PCR) - Final Imaging Radiology Impression Chest X-Ray 11/09/24 19:20 IMPRESSION: Patchy bibasilar airspace disease/infiltrates, slightly more confluent on the left. Correlate for an infectious or inflammatory process. Follow-up to resolution recommended. Reading Location: [facility] Assessment & Plan Assessment/Plan (1) Pneumonia: QUALIFIERS: Laterality: bilateral Lung location: unspecified part of lung Pneumonia type: due to unspecified organism Qualified Code(s): J18.9 - Pneumonia, unspecified organism (2) Leukocytosis: QUALIFIERS: Leukocytosis type: unspecified Qualified Code(s): D72.829 - Elevated white blood cell count, unspecified (3) COPD exacerbation: (4) Hyponatremia: (5) Respiratory insufficiency: (6) Schizophrenia: QUALIFIERS: Schizophrenia type: unspecified Qualified Code(s): F20.9 - Schizophrenia, unspecified (7) Obesity (BMI 30-39.9): PLAN: Plan 1. Chest x-ray evidence of Bibasilar Pneumonia; more confluent on the Left with Leukocytosis of 12.2 K present on admission in the setting of recent nausea and vomiting suspicious for possible aspiration after recent viral URI approximately 1 week ago - Admit to general medical floor. Start IV Zosyn to cover gram-negative's and anaerobes associated with aspiration and also add IV vancomycin with pneumonia developed after recent Viral URI in a health care setting worrisome for possible bacterial superinfection with possible MRSA. Check urinary antigens to Legionella and Streptococcus pneumonia. Check sputum culture. Give probiotic plus vitamin D3, vitamin C plus zinc to help boost immunity and hopefully speed recovery in the setting of previously diagnosed vitamin D deficiency. Give scheduled Mucinex 1,200 mg p.o. twice daily. Give acetaminophen as needed for [id number] (level 1-5/10) pain or fever. Give [place] as needed for severe (level 6-10/10) pain. 2. AE COPD with Acute Respiratory Insufficiency complicating #1 - Continue IV Solu-Medrol plus scheduled and as needed nebulizers. Wean supplemental oxygen as tolerated. Check ABG to establish baseline. 3. Hyponatremia of 130 mmol/L present on admission compounding #1 & #2 - Start NS IV fluid and recheck BMP in a.m. to ensure improvement. Check urine and serum osmolality. 4. History of schizophrenia; on clozapine adding to the medical complexity of #1 - #3 - Maintain clozapine as before. 5. Obesity; with BMI of 35.1 this admission plus LIDA; on CPAP adding to the burden of disease outlined from #1 - #4 - Weight loss will be recommended. Resume nocturnal CPAP as previous. Check TSH. This complicates her case and may hamper recovery. 6. Essential Hypertension; on metoprolol and furosemide - Continue metoprolol but hold furosemide until her volume status has been optimized. 7. Hyperlipidemia; on atorvastatin - Resume statin. 8. DM-2; of unknown control; on metformin, empagliflozin and insulin glargine 48U daily - ADA diet. FSBS q. AC/HS plus SSI. Continue insulin glargine but hold metformin and empagliflozin while she is admitted. 9. Depression with Anxiety; on lorazepam BID and q. HS haloperidol - Maintain home regimen. 10. Neuropathy; on gabapentin TID - Continue current treatment. 11. history of tremors; on benztropine BID - Resume benztropine as before. 12. RLS; on pramipexole - Continue pramipexole as previous. 13. BILL; on ferrous sulfate - Stable with hemoglobin of 13.4 g/dL and MCV of 86.3 fL present on admission. 14. History of mandibular surgery - Noted. 15. History of cholecystectomy - Noted. 16. GERD; on omeprazole - Resume PPI. 17. DVT prophylaxis - Lovenox 40 mg sq daily plus SCD's. Total time: Approximately (but not less than) 75 minutes. Charges/Coding Visit Charges Inpatient E&M: 06692 Init Hosp L3
[2024-11-10] VITALS (15 sets, daily range): BP systolic 115–124; BP diastolic 62–75; PULSE 88–119; RESP 16–23; TEMP 36.4–36.7; O2SAT 92–100; BMI 34.5
[2024-11-10] MEDS: Vancomycin HCl 2,000 MG in 0.9% Normal Saline (500mL Bag) 500 ML 250 MG IV (01:35)
[2024-11-10] MEDS: 0.9% Normal Saline (1000mL) 1,000 ML 70 ML IV (01:35)
[2024-11-10] MEDS: Acetaminophen 325 MG Tablet 650 MG PO ×2 (01:50→15:19)
--- NOTE | 2024-11-10 02:14 | PCM.RX.CS ---
Consult Antibiotic Management Pharmacy has been consulted to manage selected antibiotic: Vancomycin Type of Intervention Type of Consult: New start Labs Labs: Sodium 130 mmol/L (136-145) L 11/09/24 19:07 Potassium 3.8 mmol/L (3.5-5.1) 11/09/24 19:07 Chloride 100 mmol/L (98-107) 11/09/24 19:07 Carbon Dioxide 21.0 mmol/L (21.0-32.0) 11/09/24 19:07 Anion Gap 9 (5-15) 11/09/24 19:07 BUN 14 mg/dL (7-18) 11/09/24 19:07 Creatinine 0.56 mg/dL (0.55-1.02) 11/09/24 19:07 Est GFR (MDRD) Af Amer 142 mL/min (>60) 11/09/24 19:07 Est GFR (MDRD) Non-Af 117 mL/min (>60) 11/09/24 19:07 BUN/Creatinine Ratio 25.0 RATIO (10-20) H 11/09/24 19:07 Glucose 164 mg/dL (74-106) H 11/09/24 19:07 Microbiology Microbiology: Microbiology 11/09/24 21:42 Mucosa - Nose SARS-CoV-2, Influenza & RSV (PCR) - Final Dosing Weight Weight used for dosin kg Estimated Creatinine Clearance Estimated Creatinine Clearance: 105.16 Goal Trough Goal Trough: 15-20 mcg/mL Pharmacy Plan for Drug Dosing Pharmacy Plan for Drug Dosing: Pharmacy Service will continue to monitor and adjust dosing as required. LOADING DOSE 2GM GIVEN 11/10 @ 0135. START 1GM Q8H AND DRAW TROUGH PRIOR TO 4TH DOSE Follow-Up Labs Follow-Up Labs: Trough: Vancomycin Date/Time Labs Ordered Labs to be done on [date and time ordered]: 11/12 @ 1142
[2024-11-10 03:31] LABS: Osmolality, Urine 201 mOsm/KG
[2024-11-10 03:47] LABS: M R Staph aureus DNA By PCR Negative (Negative); Probe Check PASS; Specimen Processing Control PASS
[2024-11-10] MEDS: Piperacil/Tazobactam 3.375 GM in 0.9% Normal Saline (50mL MB+) 50 ML IV ×3 (05:11→21:51)
[2024-11-10] MEDS: guaiFENesin 1,200 MG Tablet 1200 MG PO (05:13)
[2024-11-10] MEDS: Gabapentin 100 MG Capsule PO ×3 (05:15→22:01)
[2024-11-10] MEDS: Insulin Lispro 100 UNIT/ML INSULN.PEN SC ×4 (06:56→21:57)
[2024-11-10] MEDS: Ipratropium/Albuterol Sulfate 3 ML AMPUL.NEB INHALATION ×3 (07:05→17:40)
[2024-11-10] MEDS: Budesonide Respules 0.5 MG/2 ML AMPUL.NEB. INHALATION ×2 (07:10→17:40)
[2024-11-10 07:18] LABS: Bedside Glucose 192 mg/dL (74-106)
[2024-11-10 07:27] LABS: Absolute Lymphocyte Count 0.92 X10^3/uL (0.83-4.51); Absolute Neutrophil Count 8.7 X10^3/uL (2.0-7.7); Basophil# 0.02 X10^3/uL; Basophil% 0.2 % (0-1); Hematocrit 37.8 % (37-47); Hemoglobin 12.1 g/dL (12.0-15.0); Lymphocyte # 0.92 X10^3/ul (0.83-4.51); Lymphocyte % 9.3 % (19-41); Mean Corpuscular Hgb 28.6 pg (27.0-32.0); Mean Corpuscular Volume 89.4 fL (81-99); Mean Platelet Vol. 9.2 fl (6.2-12.0); Monocyte# 0.16 X10^3/uL; Monocyte% 1.6 % (0-10); NRBC Flagged by Analyzer 0 % (0-5); Neutrophil # 8.69 X10^3/uL (2.7-7.7); Neutrophil % 88.2 % (47-70); Platelet Count 223 K/mm3 (150-450); RBC Distribution Width CV 14.3 % (11.6-14.6); RBC Distribution Width SD 46.2 fl (35.1-43.9); Red Blood Count 4.23 M/mm3 (4.2-5.4); White Blood Count 9.9 K/mm3 (4.4-11.0)
[2024-11-10 07:56] LABS: ALB/GLOB Ratio 0.7 RATIO (0.9-2.4); AST(SGOT) 50 U/L (15-37); Alanine Aminotransfer ALT/SGPT 90 U/L (13-56); Albumin, Serum 3.1 g/dL (3.2-5.0); Alkaline Phosphatase 159 U/L (45-117); Anion Gap 10 (5-15); BUN 10 mg/dL (7-18); Calcium,Total 8.5 mg/dL (8.5-10.1); Chloride 104 mmol/L (98-107); Creatinine, Serum 0.43 mg/dL (0.55-1.02); EST Glomerular Filtration Rate 157 mL/min (>60); Est Glom Filt Rate - Afr Amer 190 mL/min (>60); Estimated Creatinine Clearance 135.92 ml/min; Globulin 4.3 g/dL (2.2-4.2); Glucose 179 mg/dL (74-106); Magnesium 2.2 mg/dL (1.6-2.6); Phosphorus 3.2 mg/dL (2.5-4.9); Potassium 3.8 mmol/L (3.5-5.1); Protein, Total 7.4 g/dL (6.4-8.2); Sodium Level 136 mmol/L (136-145)
[2024-11-10] MEDS: Enoxaparin 40 MG/0.4 ML Syringe SC (07:57)
[2024-11-10] MEDS: Zinc Sulfate 50 mg zinc (220 mg) ORAL capsule PO (07:57)
[2024-11-10] MEDS: Benztropine Mesylate 0.5 MG TABLET PO ×2 (07:57→21:46)
[2024-11-10] MEDS: Docusate Sodium 100 MG Capsule PO (07:57)
[2024-11-10] MEDS: cloZAPine 100 MG TABLET PO ×4 (07:58→21:46)
[2024-11-10] MEDS: Cholecalciferol (VIT D3) 25 MCG TABLET (1,000 UNITS) PO (07:58)
[2024-11-10] MEDS: Ascorbic Acid 500 MG Tablet 1000 MG PO ×2 (07:58→16:18)
[2024-11-10] MEDS: Ferrous Sulfate 325 MG Tablet PO ×2 (07:58→16:18)
[2024-11-10] MEDS: Pantoprazole Sodium 20 MG Tablet PO (07:58)
[2024-11-10] MEDS: MethylPREDNISolone 125 MG/2 ML Vial 60 MG IV (08:01)
[2024-11-10 08:12] LABS: Thyroid Stim Hormone (TSH) 0.831 uIU/mL (0.358-3.740)
[2024-11-10 09:02] LABS: Hemoglobin A1c 6.8 % (3.8-5.6)
[2024-11-10 10:26] LABS: Osmolality, Serum 283 mOsm/KG (275-295)
[2024-11-10] MEDS: Vancomycin IV 1,000 MG/200 ML BAG 200 MG IV ×2 (10:45→18:20)
[2024-11-10] MEDS: clonazePAM 1 MG Tablet PO ×2 (10:45→22:01)
[2024-11-10 11:53] LABS: Bedside Glucose 278 mg/dL (74-106)
[2024-11-10] MEDS: Insulin Glargine-YFGN 100 UNIT/ML Pen 48 UNIT SC (16:18)
[2024-11-10] MEDS: Aspirin E.C. 325 MG Tablet PO (16:18)
[2024-11-10 16:42] LABS: Bedside Glucose 245 mg/dL (74-106)
--- NOTE | 2024-11-10 18:23 | PCM.PN.HOSP ---
Reason for Visit Reason for Visit: Diagnoses Elevated white blood cell count, unspecified (11/09/24) Obesity, unspecified (11/09/24) Hypo-osmolality and hyponatremia (11/09/24) Schizophrenia, unspecified (11/09/24) Pneumonia, unspecified organism (11/09/24) Chronic obstructive pulmonary disease with (acute) exacerbation (11/09/24) Other abnormalities of breathing (11/09/24) Subjective Subjective Patient was seen and examined today, she is currently on room air at this time at rest, patient does not appear to have any respiratory distress. Patient has some cognitive impairment due to her schizophrenia. Objective Data Objective Data Vital Signs: Vital Signs Temp Pulse Resp BP Pulse Ox O2 Del Method O2 Flow Rate 97.6 F L 88 18 121/63 H 93 Room Air 2 11/10/24 15:30 11/10/24 17:41 11/10/24 17:41 11/10/24 15:30 11/10/24 15:30 11/10/24 15:30 11/10/24 07:56 Oxygen Flow Rate (L/min) 2 Oxygen Delivery Method Room Air Weight: 83.007 kg Body Mass Index (BMI) 34.5 Intake & Output: Intake and Output for Last 24 Hours 11/08/24 11/09/24 11/10/24 23:59 23:59 23:59 Intake Total 50 / 50 6325.00 / 6325.00 Output Total 300 / 300 Balance 50 / 50 6025.00 / 6025.00 Lab / Micro Data 11/10/24 07:01 11/10/24 07:01 Labs: Laboratory Results - last 24 hr 11/09/24 19:02: POC Glucose 154 H 11/09/24 19:07: WBC 12.2 H, RBC 4.61, Hgb 13.4, Hct 39.8, MCV 86.3, MCH 29.1, MCHC 33.7, RDW Std Deviation 44.9 H, RDW Coeff of Tyesha 14.2, Plt Count 239, MPV 9.3, Immature Gran % (Auto) 0.400, Neut % (Auto) 71.5 H, Lymph % (Auto) 15.5 L, [place] % (Auto) 12.0 H, Eos % (Auto) 0.1, Baso % (Auto) 0.5, Absolute Neuts (auto) 8.8 H, Absolute Lymphs (auto) 1.89, Nucleated RBC % 0, Sodium 130 L, Potassium 3.8, Chloride 100, Carbon Dioxide 21.0, Anion Gap 9, BUN 14, Creatinine 0.56, Estim Creat Clear Calc 105.16, Est GFR (MDRD) Af Amer 142, Est GFR (MDRD) Non-Af 117, BUN/Creatinine Ratio 25.0 H, Glucose 164 H, Calcium 9.2, Total Bilirubin 0.80, Direct Bilirubin 0.28, AST 83 H, ALT 103 H, Alkaline Phosphatase 188 H, Total Protein 7.9, Albumin 3.5, Globulin 4.4 H 11/09/24 21:59: PT 13.9, INR 1.1, Lactic Acid 1.3 11/10/24 01:35: Urine Osmolality 201 11/10/24 01:40: MRSA (PCR) Negative 11/10/24 06:54: POC Glucose 192 H 11/10/24 07:01: WBC 9.9, RBC 4.23, Hgb 12.1, Hct 37.8, MCV 89.4, MCH 28.6, MCHC 32.0 D, RDW Std Deviation 46.2 H, RDW Coeff of Tyesha 14.3, Plt Count 223, MPV 9.2, Immature Gran % (Auto) 0.700, Neut % (Auto) 88.2 H, Lymph % (Auto) 9.3 L, [place] % (Auto) 1.6, Eos % (Auto) 0.0, Baso % (Auto) 0.2, Absolute Neuts (auto) 8.7 H, Absolute Lymphs (auto) 0.92, Nucleated RBC % 0, Sodium 136, Potassium 3.8, Chloride 104, Carbon Dioxide 22.0, Anion Gap 10, BUN 10, Creatinine 0.43 L, Estim Creat Clear Calc 135.92, Est GFR (MDRD) Af Amer 190, Est GFR (MDRD) Non-Af 157, BUN/Creatinine Ratio 23.0 H, Glucose 179 H, Hemoglobin A1c 6.8 H, Serum Osmolality 283, Calcium 8.5, Phosphorus 3.2, Magnesium 2.2, Total Bilirubin 0.50, AST 50 H, ALT 90 H, Alkaline Phosphatase 159 H, Total Protein 7.4, Albumin 3.1 L, Globulin 4.3 H, Albumin/Globulin Ratio 0.7 L, TSH 0.831 11/10/24 10:57: POC Glucose 278 H 11/10/24 16:14: POC Glucose 245 H Micro: Microbiology 11/10/24 04:50 Mucosa - Nasopharyngeal Respiratory Panel (PCR) - Final 11/10/24 01:35 Urine, Clean Catch Legionella Antigen - Final 11/10/24 01:35 Urine, Clean Catch Streptococcus pneumoniae Antigen (M - Final 11/09/24 21:42 Mucosa - Nose SARS-CoV-2, Influenza & RSV (PCR) - Final Radiography Diagnostic Testing: Radiology Impression Chest X-Ray 11/09/24 19:20 IMPRESSION: Patchy bibasilar airspace disease/infiltrates, slightly more confluent on the left. Correlate for an infectious or inflammatory process. Follow-up to resolution recommended. Reading Location: [facility] Physical Exam Const alert, oriented x3 and no apparent distress Constitutional Narrative: Patient appears older than her stated age, there is some cognitive impairment noted General Appearance: cooperative, well kempt and well developed Orientation / Consciousness: awake, oriented to person and oriented to place HEENT normocephalic, head/scalp atraumatic and moist oral mucous membranes Eyes PERRL, EOMs intact bilaterally and conjunctivae normal Neck supple, no JVD, thyroid normal and no carotid bruits General: trachea midline Resp normal respiratory effort Resp Narrative: Patient has expiratory wheezes bilaterally Auscultation: wheezes; Negative for rales or rhonchi Cardio regular rate, regular rhythm, S1 normal heart sound, S2 normal heart sound, no murmurs, no rub and no gallops GI normal to inspection, nondistended, normoactive bowel sounds, soft to palpation, non-tender and non-distended Extremity no clubbing, cyanosis or edema Skin no rashes or lesions noted General Skin Exam: no breakdown Neuro CN's II-XII intact bilaterally, no focal motor deficits and no sensory deficits noted Sensorium / Orientation: awake, alert, oriented to person and oriented to place Speech: speech normal Psych Psych Narrative: Patient has some cognitive impairment noted Assessment & Plan Assessment/Plan (1) COPD exacerbation: PLAN: Plan 1. Exacerbation of COPD-aerosol treatments and IV Solu-Medrol will be continued, I have elected to lower her dose of Solu-Medrol due to her diabetes. #2 community-acquired pneumonia-patient will continue on Zosyn, I do not believe she needs IV vancomycin #3 schizophrenia-complicates care, management, recovery, and prognosis #4 type 2 diabetes-blood sugars will be monitored, sliding scale insulin will be administered as needed Total clinical time spent addressing her medical issues, reviewing all of her data, and collaborating with patient's care team: 35 minutes Charges/Coding Visit Charges Inpatient E&M: 02003 Subs Hosp L2
[2024-11-10] MEDS: Pramipexole Di-HCl 0.25 MG Tablet PO (21:46)
[2024-11-10] MEDS: Atorvastatin Calcium 10 MG Tablet PO (21:46)
[2024-11-10] MEDS: Haloperidol 1 MG Tablet 2 MG PO (21:46)
[2024-11-10] MEDS: 0.9% Saline Lock 10 ML Syringe IV (21:47)
[2024-11-10 22:23] LABS: Bedside Glucose 195 mg/dL (74-106)
[2024-11-11] VITALS (11 sets, daily range): BP systolic 104–123; BP diastolic 60–81; PULSE 87–117; RESP 15–24; TEMP 36.3–36.8; O2SAT 93–97; BMI 34.3
[2024-11-11] MEDS: Gabapentin 100 MG Capsule PO ×3 (06:14→21:22)
[2024-11-11] MEDS: Piperacil/Tazobactam 3.375 GM in 0.9% Normal Saline (50mL MB+) 50 ML IV ×3 (06:19→21:22)
[2024-11-11] MEDS: Insulin Lispro 100 UNIT/ML INSULN.PEN SC ×4 (06:28→21:36)
[2024-11-11 06:47] LABS: Bedside Glucose 178 mg/dL (74-106)
[2024-11-11] MEDS: Budesonide Respules 0.5 MG/2 ML AMPUL.NEB. INHALATION ×2 (06:49→19:45)
[2024-11-11] MEDS: Ipratropium/Albuterol Sulfate 3 ML AMPUL.NEB INHALATION ×3 (06:49→19:45)
[2024-11-11] MEDS: Ferrous Sulfate 325 MG Tablet PO ×2 (09:02→18:12)
[2024-11-11] MEDS: Benztropine Mesylate 0.5 MG TABLET PO ×2 (09:03→21:23)
[2024-11-11] MEDS: Ascorbic Acid 500 MG Tablet 1000 MG PO ×2 (09:03→18:12)
[2024-11-11] MEDS: cloZAPine 100 MG TABLET PO ×4 (09:04→21:23)
[2024-11-11] MEDS: Enoxaparin 40 MG/0.4 ML Syringe SC (09:04)
[2024-11-11] MEDS: Docusate Sodium 100 MG Capsule PO (09:04)
[2024-11-11] MEDS: Zinc Sulfate 50 mg zinc (220 mg) ORAL capsule PO (09:05)
[2024-11-11] MEDS: Cholecalciferol (VIT D3) 25 MCG TABLET (1,000 UNITS) PO (09:05)
[2024-11-11] MEDS: Pantoprazole Sodium 20 MG Tablet PO (09:05)
[2024-11-11] MEDS: guaiFENesin 1,200 MG Tablet 1200 MG PO (09:05)
[2024-11-11] MEDS: clonazePAM 1 MG Tablet PO ×2 (09:12→21:22)
--- NOTE | 2024-11-11 10:39 | CASEMGMT ---
Social Work- JONNY spoke with Kristi from [facility] in regards to discharge planning. Pt is from a women's group that is run by [facility]. Kristi reports that pt is able to return if she is able to ambulate and transfer, which pt was able to do with therapy. JONNY will continue to coordinate with Kristi on discharge planning. Plan: return to longterm at [facility]
[2024-11-11 11:28] LABS: Bedside Glucose 247 mg/dL (74-106)
[2024-11-11 16:27] LABS: Bedside Glucose 205 mg/dL (74-106)
[2024-11-11] MEDS: Aspirin E.C. 325 MG Tablet PO (18:10)
[2024-11-11] MEDS: Insulin Glargine-YFGN 100 UNIT/ML Pen 48 UNIT SC (18:11)
--- NOTE | 2024-11-11 18:34 | PCM.PN.HOSP ---
Reason for Visit Reason for Visit: Diagnoses Elevated white blood cell count, unspecified (11/09/24) Obesity, unspecified (11/09/24) Hypo-osmolality and hyponatremia (11/09/24) Schizophrenia, unspecified (11/09/24) Pneumonia, unspecified organism (11/09/24) Chronic obstructive pulmonary disease with (acute) exacerbation (11/09/24) Other abnormalities of breathing (11/09/24) Subjective Subjective Patient was seen and examined, she is walking in the olivo without any oxygen on and does not appear short of breath. Patient has been on room air. Objective Data Objective Data Vital Signs: Vital Signs Temp Pulse Resp BP Pulse Ox O2 Del Method O2 Flow Rate 97.3 F L 111 H 19 H 123/67 H 95 Room Air 2 11/11/24 14:17 11/11/24 14:17 11/11/24 16:19 11/11/24 14:17 11/11/24 16:19 11/11/24 16:19 11/10/24 07:56 Oxygen Flow Rate (L/min) 2 Oxygen Delivery Method Room Air Weight: 82.5 kg Body Mass Index (BMI) 34.3 Intake & Output: Intake and Output for Last 24 Hours 11/09/24 11/10/24 11/11/24 23:59 23:59 23:59 Intake Total 50 / 50 7075.00 / 7075.00 500 / 500 Output Total 300 / 300 Balance 50 / 50 6775.00 / 6775.00 500 / 500 Lab / Micro Data 11/10/24 07:01 11/10/24 07:01 Labs: Laboratory Results - last 24 hr 11/10/24 21:56: POC Glucose 195 H 11/11/24 06:25: POC Glucose 178 H 11/11/24 11:08: POC Glucose 247 H 11/11/24 16:09: POC Glucose 205 H Micro: Microbiology 11/10/24 04:50 Mucosa - Nasopharyngeal Respiratory Panel (PCR) - Final 11/10/24 01:35 Urine, Clean Catch Legionella Antigen - Final 11/10/24 01:35 Urine, Clean Catch Streptococcus pneumoniae Antigen (M - Final 11/09/24 21:42 Mucosa - Nose SARS-CoV-2, Influenza & RSV (PCR) - Final Physical Exam Narrative alert, oriented x3 and no apparent distress Constitutional Narrative: Patient appears older than her stated age, there is some cognitive impairment noted General Appearance: cooperative, well kempt and well developed Orientation / Consciousness: awake, oriented to person and oriented to place HEENT normocephalic, head/scalp atraumatic and moist oral mucous membranes Eyes PERRL, EOMs intact bilaterally and conjunctivae normal Neck supple, no JVD, thyroid normal and no carotid bruits General: trachea midline Resp normal respiratory effort Resp Narrative: Patient has expiratory wheezes bilaterally Auscultation: wheezes; Negative for rales or rhonchi Cardio regular rate, regular rhythm, S1 normal heart sound, S2 normal heart sound, no murmurs, no rub and no gallops GI normal to inspection, nondistended, normoactive bowel sounds, soft to palpation, non-tender and non-distended Extremity no clubbing, cyanosis or edema Skin no rashes or lesions noted General Skin Exam: no breakdown Neuro CN's II-XII intact bilaterally, no focal motor deficits and no sensory deficits noted Sensorium / Orientation: awake, alert, oriented to person and oriented to place Speech: speech normal Psych Psych Narrative: Patient has some cognitive impairment noted Assessment & Plan Assessment/Plan (1) COPD exacerbation: PLAN: Plan 1. Exacerbation of COPD-aerosol treatments and IV Solu-Medrol will be continued #2 community-acquired pneumonia-patient will continue on Zosyn, I do not believe she needs IV vancomycin #3 schizophrenia-complicates care, management, recovery, and prognosis #4 type 2 diabetes-blood sugars will be monitored, sliding scale insulin will be administered as needed Total clinical time spent addressing her medical issues, reviewing all of her data, and collaborating with patient's care team: 35 minutes Charges/Coding Visit Charges Inpatient E&M: 19993 Subs Hosp L2
[2024-11-11 20:15] LABS: Bedside Glucose 315 mg/dL (74-106)
[2024-11-11] MEDS: Pramipexole Di-HCl 0.25 MG Tablet PO (21:22)
[2024-11-11] MEDS: Atorvastatin Calcium 10 MG Tablet PO (21:23)
[2024-11-11] MEDS: Haloperidol 1 MG Tablet 2 MG PO (21:23)
[2024-11-11 22:45] LABS: Bedside Glucose 257 mg/dL (74-106)
[2024-11-12] VITALS (9 sets, daily range): BP systolic 103–145; BP diastolic 63–79; PULSE 86–114; RESP 18–20; TEMP 36.4–36.6; O2SAT 90–96; BMI 34.3
[2024-11-12] MEDS: Albuterol 2.5 MG/3 ML VIAL.NEB. INHALATION (02:16)
[2024-11-12] MEDS: guaiFENesin 10 ML UDC (200MG/10ML) PO ×2 (02:45→10:51)
--- NOTE | 2024-11-12 03:06 | RAD_ITS ---
PROCEDURE: CHEST 1 VIEW (PORTABLE) REASON FOR EXAM: Coughing. TECHNIQUE: Frontal view of the chest. COMPARISON: 11/09/2024 FINDINGS: Intermediate lung volumes. Mild patchy airspace disease/infiltrate involving the left lower lobe, improved in the interval. Interval resolution of the previously seen right lower lobe infiltrate. Remaining lung markings otherwise appears clear. No pneumothorax or sizable effusion is seen. Heart size and great vessels are stable. Osseous thorax appears intact. RAD/Chest 1 View (Portable) IMPRESSION: 1. Minimal residual patchy airspace disease/infiltrate involving the left lower lobe, improved in the interval. 2. Interval resolution of the previously seen right lower lobe infiltrate . Reading Location: [facility]
[2024-11-12] MEDS: Magnesium Sulfate 2 GM in Dextrose 5%-Water (100mL Bag) 100 ML IV (03:38)
[2024-11-12 03:58] LABS: BNP,B-Type NATRIURETIC PEPTIDE 24.1 pg/mL (0-100)
[2024-11-12] MEDS: Gabapentin 100 MG Capsule PO (06:39)
[2024-11-12] MEDS: Piperacil/Tazobactam 3.375 GM in 0.9% Normal Saline (50mL MB+) 50 ML IV (06:39)
[2024-11-12] MEDS: Insulin Lispro 100 UNIT/ML INSULN.PEN SC ×2 (06:40→12:00)
[2024-11-12 07:15] LABS: Bedside Glucose 230 mg/dL (74-106)
[2024-11-12] MEDS: Ipratropium/Albuterol Sulfate 3 ML AMPUL.NEB INHALATION (07:22)
[2024-11-12] MEDS: Budesonide Respules 0.5 MG/2 ML AMPUL.NEB. INHALATION (07:22)
--- NOTE | 2024-11-12 08:46 | CASEMGMT ---
Social Work- SW called [facility] to advise that pt will be discharging today so that staffing can be arranged. SW will call again once pt has discharge paperwork. KAILEE Hennessy
[2024-11-12] MEDS: Benztropine Mesylate 0.5 MG TABLET PO (08:52)
[2024-11-12] MEDS: Ferrous Sulfate 325 MG Tablet PO (08:52)
[2024-11-12] MEDS: Ascorbic Acid 500 MG Tablet 1000 MG PO (08:52)
[2024-11-12] MEDS: Enoxaparin 40 MG/0.4 ML Syringe SC (08:53)
[2024-11-12] MEDS: clonazePAM 1 MG Tablet PO (08:53)
[2024-11-12] MEDS: cloZAPine 100 MG TABLET PO (08:53)
[2024-11-12] MEDS: Docusate Sodium 100 MG Capsule PO (08:53)
[2024-11-12] MEDS: guaiFENesin 1,200 MG Tablet 1200 MG PO (08:54)
[2024-11-12] MEDS: Pantoprazole Sodium 20 MG Tablet PO (08:54)
[2024-11-12] MEDS: Zinc Sulfate 50 mg zinc (220 mg) ORAL capsule PO (08:54)
[2024-11-12] MEDS: Cholecalciferol (VIT D3) 25 MCG TABLET (1,000 UNITS) PO (08:54)
--- NOTE | 2024-11-12 10:16 | DCINST_ITS ---
Discharge Instructions Diet Discharge Diet: 1800 Calorie Control Diet DC O2, CPAP, BIPAP needs Home O2 Discharge instructions: No Dressing / Incision Discharge Activity: Return to Normal Activity Follow Up Care Test Results: Test results from this visit will be discussed in further detail at your follow- up appointment, if applicable. Discharge Plan Admission Admit Date/Time: 11/09/24 23:49 Primary Reason for Your Visit: Exacerbation of COPD, pneumonia Attending Provider: Robinson Lebron Primary Care Provider: Shelia Villavicencio Consulting Providers: Lauro Amato Discharge Orders/Prescriptions Prescriptions: Continued cholecalciferol (vitamin D3) [Vitamin D3] 1,000 UNIT capsule 1,000 unit PO DAILY aspirin 325 MG tablet,delayed release (DR/EC) 325 mg PO DAILY@1600 omeprazole 20 MG capsule,delayed release(DR/EC) 20 mg PO DAILY potassium chloride 20 MEQ tablet 20 meq PO DAILY metoprolol succinate 25 mg Tablet Extended Release 24 Hr 25 mg PO QHS Jardiance 10 mg Tablet 10 mg PO DAILY furosemide 20 mg tablet 20 mg PO DAILY insulin glargine [Lantus Solostar U-100 Insulin] 100 unit/mL (3 mL) insulin pen 48 unit SUBCUT DAILY@1600 clozapine 100 MG tablet 100 mg PO 4X/DAY clonazepam 0.5 mg Tablet 1 mg PO BID pramipexole 0.5 mg Tablet 0.25 mg PO QHS Rx Instructions: Take half table PO at bedtime ferrous sulfate [Feosol] 325 mg (65 mg iron) Tablet 325 mg PO .BID with meals metformin 500 mg tablet extended release 24 hr 1,000 mg PO BID haloperidol 2 mg tablet 2 mg PO QHS guaifenesin [Mucus Relief ER] 1,200 mg tablet extended release 12hr 1,200 mg PO DAILY atorvastatin 10 mg tablet 10 mg PO DAILY benztropine 0.5 mg tablet 0.5 mg PO BID ondansetron 4 mg tablet,disintegrating 4 mg PO Q8H PRN PRN (Reason: Nausea) Qty: 10 0RF ondansetron 4 mg tablet,disintegrating 4 mg PO Q8H PRN PRN (Reason: Nausea) Qty: 14 0RF peg 3350-electrolytes [Golytely] 236-22.74-6.74 -5.86 gram recon soln 240 ml PO Q10M PRN Qty: 4000 0RF Rx Instructions: until fecal effluent is clear docusate sodium 100 mg capsule PO gabapentin 100 mg capsule 3XD omega-3 fatty acids-fish oil 300-1,000 mg capsule Patient Comments: [NO ORIGINAL SIG] Invega Sustenna 234 mg/1.5 mL syringe IM fluticasone furoate-vilanterol [Breo Ellipta] 100-25 mcg/dose blister with device INHALATION DAILY guaifenesin [Mucus Relief ER] 600 mg tablet extended release 12hr PO Patient Comments: [NO ORIGINAL SIG] Incruse Ellipta 62.5 mcg/actuation blister with device INHALATION DAILY prednisone 20 mg tablet 20 mg PO BID Qty: 14 0RF Rx Instructions: Continue this prescription until it runs out then discontinue doxycycline hyclate 100 mg tablet 100 mg PO BID 7 Days Qty: 14 0RF Rx Instructions: Continue doxycycline for a total of 5 more days Discontinued guaifenesin [Mucus Relief ER] 1,200 mg tablet extended release 12hr 1,200 mg PO BID Qty: 20 0RF Referrals / Follow Up: Shelia Villavicencio, BIOSTATISTICS MANAGER [Primary Care Provider] - Within 2 Weeks Disposition Disposition (needs filled in before D/C Order can be placed): Home, Self Care
--- NOTE | 2024-11-12 10:40 | PCM.DC.SUM ---
Providers Date of Admission: 11/09/24 Date of Discharge: 11/12/24 Primary Care Physician: ESEQUIEL Headley Reason For Visit: BIBASILAR PNEUMONIA, AE COPD, RESP INSUFF & Diagnosis Discharge Diagnosis (1) COPD exacerbation: Status: Chronic Code(s): J44.1 - Chronic obstructive pulmonary disease with (acute) exacerbation Plan 1. Exacerbation of COPD-aerosol treatments and IV Solu-Medrol will be continued #2 community-acquired pneumonia-patient will continue on Zosyn, I do not believe she needs IV vancomycin #3 schizophrenia-complicates care, management, recovery, and prognosis #4 type 2 diabetes-blood sugars will be monitored, sliding scale insulin will be administered as needed Total clinical time spent addressing her medical issues, reviewing all of her data, and collaborating with patient's care team: 35 minutes Medications at Discharge Home Medications cholecalciferol (vitamin D3) 25 mcg (1,000 unit) capsule (Vitamin D3) 1,000 unit PO DAILY SUPPLEMENT 10/17/17 aspirin 325 mg tablet,delayed release 325 mg PO DAILY@1600 heart health 07/22/18 omeprazole 20 mg capsule,delayed release 20 mg PO DAILY indigestion 10/31/19 potassium chloride 20 mEq tablet,extended release(part/cryst) 20 meq PO DAILY supplement 11/16/19 clozapine 100 mg tablet 100 mg PO 4X/DAY SCHIZOPHRENIA 07/30/21 empagliflozin 10 mg tablet (Jardiance) 10 mg PO DAILY diabetes 07/30/21 furosemide 20 mg tablet 20 mg PO DAILY FLUID 07/30/21 insulin glargine 100 unit/mL (3 mL) subcutaneous pen (Lantus Solostar U-100 Insulin) 48 unit subcut DAILY@1600 DM 07/30/21 metoprolol succinate 25 mg tablet,extended release 24 hr 25 mg PO QHS HTN 07/30/21 clonazepam 0.5 mg tablet 1 mg PO BID schizophrenia 06/05/22 ferrous sulfate 325 mg (65 mg iron) tablet (Feosol) 325 mg PO .BID with meals anemia 06/05/22 pramipexole 0.5 mg tablet 0.25 mg PO QHS restless legs 06/05/22 atorvastatin 10 mg tablet 10 mg PO DAILY Cholesterol 08/14/23 guaifenesin 1,200 mg tablet, extended release 12 hr (Mucus Relief ER) 1,200 mg PO DAILY congestion 08/14/23 haloperidol 2 mg tablet 2 mg PO QHS anxiety 08/14/23 metformin 500 mg tablet,extended release 24 hr 1,000 mg PO BID Diabetes 08/14/23 benztropine 0.5 mg tablet 0.5 mg PO BID tremors 08/15/23 ondansetron 4 mg disintegrating tablet 4 mg PO Q8H PRN PRN Nausea #14 tabs 12/13/23 peg 3350-electrolytes 236 gram-22.74 gram-6.74 gram-5.86 gram solution (Golytely) 240 ml PO Q10M PRN #4,000 mL 12/13/23 ondansetron 4 mg disintegrating tablet 4 mg PO Q8H PRN PRN Nausea #10 tabs 10/14/24 docusate sodium 100 mg capsule mg PO 11/09/24 fluticasone furoate 100 mcg-vilanterol 25 mcg/dose inhalation powder (Breo Ellipta) inhalation DAILY 11/09/24 gabapentin 100 mg capsule mg 3XD 11/09/24 guaifenesin 600 mg tablet, extended release 12 hr (Mucus Relief ER) mg PO 11/09/24 omega-3 fatty acids-fish oil 300 mg-1,000 mg capsule cap 11/09/24 paliperidone palmitate 234 mg/1.5 mL intramuscular syringe (Invega Sustenna) mg IM 11/09/24 umeclidinium 62.5 mcg/actuation blister powder for inhalation (Incruse Ellipta) inhalation DAILY 11/09/24 doxycycline hyclate 100 mg tablet 100 mg PO BID 7 days #14 tabs 11/12/24 doxycycline monohydrate 100 mg tablet 100 mg PO BID #11 tabs 11/12/24 prednisone 20 mg tablet 20 mg PO BID #14 tabs 11/12/24 prednisone 20 mg tablet 40 mg (2 x 20 mg) PO DAILY #14 tabs 11/12/24 Hospital Course Operations None Procedures None Summary of Care Provided Minutes Spent on Discharge: 31 Hospital Course: This 58-year-old white female presented to the emergency room at [facility] from a local senior care with fever and cough. She was seen at an urgent care and told to come to the emergency room when it was discovered that the post tensioning ironworker helper stated they could not give her any medication or breathing treatments unless it was on a medical sheet and they did not feel comfortable administering it. Workup in the ER revealed patient have an elevated white blood cell count of 12.2, chest x-ray showed evidence of bibasilar pneumonia, patient was given aerosol treatments and still had expiratory wheezing and increased respiratory rate. It was felt that the patient would benefit from admission and inpatient treatment, she was admitted to [place] [id number] and initially placed on 2 antibiotics, I evaluated the patient and did not feel she needed IV vancomycin and stop this medication. Patient improved during her hospitalization was weaned off oxygen eventually. On 11/12/2024, patient was seen and examined: On examination she appeared in good health and spirits, she does not appear to be in any distress. Vital signs as documented. Skin warm and dry and without overt rashes. Neck without JVD, thyroid appears normal, trachea is midline, neck is supple. Lungs clear, normal air movement was noted. Heart exam notable for regular rhythm, normal sounds and absence of murmurs, rubs or gallops. Abdomen unremarkable and without evidence of organomegaly, masses, or abdominal aortic enlargement, bowel sounds are present in all 4 quadrants, no abdominal tenderness was noted. Extremities nonedematous, no cyanosis was noted, no clubbing was noted. Neuro: Cranial nerves II through XII are grossly intact, no focal motor deficits were noted, sensation to light touch and pinprick is intact, motor exam 5/5 throughout. Psych: Patient is alert and oriented x2, she does not appear anxious or depressed, she does not appear agitated. There is some cognitive impairment noted due to her schizophrenia Patient appears stable for discharge back to her senior care on 11/12/2024. Weight / BMI Weight Weight: 82.5 kg Body Mass Index (BMI) 34.3 ABG / Lab / Microbiology Data 11/10/24 07:01 11/10/24 07:01 Laboratory: Laboratory Results - last 24 hr 11/10/24 07:01: Vit D 1,25-Dihydroxy 106.0 H Microbiology: Microbiology 11/09/24 21:59 Blood Culture (Wb) - Right Hand Blood Culture - Preliminary No growth in 48 hours. 11/09/24 21:59 Blood Culture (Wb) - Anticubital Right Blood Culture - Preliminary No growth in 48 hours. 11/11/24 21:03 Mucosa - Nasopharyngeal Coronavirus COVID-19 PCR - Final 11/10/24 04:50 Mucosa - Nasopharyngeal Respiratory Panel (PCR) - Final 11/10/24 01:35 Urine, Clean Catch Legionella Antigen - Final 11/10/24 01:35 Urine, Clean Catch Streptococcus pneumoniae Antigen (M - Final 11/09/24 21:42 Mucosa - Nose SARS-CoV-2, Influenza & RSV (PCR) - Final Radiography Diagnostic Testing: Radiology Impression Chest X-Ray 11/12/24 03:06 IMPRESSION: 1. Minimal residual patchy airspace disease/infiltrate involving the left lower lobe, improved in the interval. 2. Interval resolution of the previously seen right lower lobe infiltrate . Reading Location: [facility] D/C Instructions Discharge Diet: 1800 Calorie Control Diet DC O2, CPAP, BIPAP Needs PSN CPAP & BiPAP: BiPAP & CPAP Settings per PSN Mode CPAP 11/10/24 23:03 Bipap Delivery Device Face Mask 11/10/24 23:03 BiPAP Expiratory Pressure 10 11/10/24 23:03 Home O2 Discharge instructions: No Meaningful Use Info Meaningful Use Meaningful Use Diagnoses (Choose all that apply): None applicable Ischemic Stroke Statin Dosing Therapy Reference: STATIN DOSE THERAPY REFERENCE: * Patients > 75 years receive moderate or high dose statin therapy. * Patients 75 years or YOUNGER should receive HIGH intensity statin dose unless contraindicated. You will be required to document reason for non-treatment if statin daily dose does not meet guidelines. HIGH DOSE STATIN THERAPY DAILY Atorvastatin > than or = to 40 mg Rosuvastatin > than or = to 20 mg Amlodipine + Atorvastatin > than or = to 2.5/40 mg Ezetimibe + Simvastatin 10/80 mg Simvastatin 80mg Discharge Plan Admission Admit Date/Time: 11/09/24 23:49 Primary Reason for Your Visit: Exacerbation of COPD, pneumonia Attending Provider: Robinson Lebron Primary Care Provider: Shelia Villavicencio Consulting Providers: Lauro Amato Discharge Orders/Prescriptions Prescriptions: New prednisone 20 mg tablet 40 mg PO DAILY Qty: 14 0RF Rx Instructions: 2 tablets once a day for 7 days then discontinue doxycycline monohydrate 100 mg tablet 100 mg PO BID Qty: 11 0RF Rx Instructions: 1 twice a day for 11 doses beginning 11/12/2024 then discontinue Continued cholecalciferol (vitamin D3) [Vitamin D3] 1,000 UNIT capsule 1,000 unit PO DAILY aspirin 325 MG tablet,delayed release (DR/EC) 325 mg PO DAILY@1600 omeprazole 20 MG capsule,delayed release(DR/EC) 20 mg PO DAILY potassium chloride 20 MEQ tablet 20 meq PO DAILY metoprolol succinate 25 mg Tablet Extended Release 24 Hr 25 mg PO QHS Jardiance 10 mg Tablet 10 mg PO DAILY furosemide 20 mg tablet 20 mg PO DAILY insulin glargine [Lantus Solostar U-100 Insulin] 100 unit/mL (3 mL) insulin pen 48 unit SUBCUT DAILY@1600 clozapine 100 MG tablet 100 mg PO 4X/DAY clonazepam 0.5 mg Tablet 1 mg PO BID pramipexole 0.5 mg Tablet 0.25 mg PO QHS Rx Instructions: Take half table PO at bedtime ferrous sulfate [Feosol] 325 mg (65 mg iron) Tablet 325 mg PO .BID with meals metformin 500 mg tablet extended release 24 hr 1,000 mg PO BID haloperidol 2 mg tablet 2 mg PO QHS guaifenesin [Mucus Relief ER] 1,200 mg tablet extended release 12hr 1,200 mg PO DAILY atorvastatin 10 mg tablet 10 mg PO DAILY benztropine 0.5 mg tablet 0.5 mg PO BID ondansetron 4 mg tablet,disintegrating 4 mg PO Q8H PRN PRN (Reason: Nausea) Qty: 10 0RF ondansetron 4 mg tablet,disintegrating 4 mg PO Q8H PRN PRN (Reason: Nausea) Qty: 14 0RF peg 3350-electrolytes [Golytely] 236-22.74-6.74 -5.86 gram recon soln 240 ml PO Q10M PRN Qty: 4000 0RF Rx Instructions: until fecal effluent is clear docusate sodium 100 mg capsule PO gabapentin 100 mg capsule 3XD omega-3 fatty acids-fish oil 300-1,000 mg capsule Patient Comments: [NO ORIGINAL SIG] Invega Sustenna 234 mg/1.5 mL syringe IM fluticasone furoate-vilanterol [Breo Ellipta] 100-25 mcg/dose blister with device INHALATION DAILY guaifenesin [Mucus Relief ER] 600 mg tablet extended release 12hr PO Patient Comments: [NO ORIGINAL SIG] Incruse Ellipta 62.5 mcg/actuation blister with device INHALATION DAILY prednisone 20 mg tablet 20 mg PO BID Qty: 14 0RF Rx Instructions: Continue this prescription until it runs out then discontinue doxycycline hyclate 100 mg tablet 100 mg PO BID 7 Days Qty: 14 0RF Rx Instructions: Continue doxycycline for a total of 5 more days Discontinued guaifenesin [Mucus Relief ER] 1,200 mg tablet extended release 12hr 1,200 mg PO BID Qty: 20 0RF Referrals / Follow Up: Shelia Villavicencio, MEDICAL TRANSLATOR [Primary Care Provider] - Within 2 Weeks Disposition Disposition (needs filled in before D/C Order can be placed): Home, Self Care Charges/Coding Visit Charges Inpatient E&M: 96992 Disch Hosp >30min
--- NOTE | 2024-11-12 10:52 | CASEMGMT ---
Addendum entered by Bee Pop 11/12/24 10:54: Noted pox readings when pt worked with therapy this date. Original Note: No therapy recommended by PT. Pt on RA.
[2024-11-12 11:28] LABS: Bedside Glucose 213 mg/dL (74-106)
== END 2024-11-12 13:52 | disposition home or self-care (01) | DRG 190 ==
LOC: ED 22:50 → MS3 23:52
PROVIDERS: Admitting Provider Internal Medicine; Emergency Provider Emergency Medicine; PCP Clinical Nurse Specialist Adult Health; Visit Provider Internal Medicine
DX: J44.1 Chronic obstructive pulmonary disease with (acute) exacerbation (principal); J18.9 Pneumonia, unspecified organism; E87.1 Hypo-osmolality and hyponatremia; E11.40 Type 2 diabetes mellitus with diabetic neuropathy, unspecified; F20.9 Schizophrenia, unspecified; J44.0 Chronic obstructive pulmonary disease with (acute) lower respiratory infection; I10 Essential (primary) hypertension; E66.9 Obesity, unspecified; E78.5 Hyperlipidemia, unspecified; F41.8 Other specified anxiety disorders; Z79.4 Long term (current) use of insulin; K21.9 Gastro-esophageal reflux disease without esophagitis; G47.33 Obstructive sleep apnea (adult) (pediatric); Z68.35 Body mass index [BMI] 35.0-35.9, adult; Z79.82 Long term (current) use of aspirin; Z79.899 Other long term (current) drug therapy; Z79.51 Long term (current) use of inhaled steroids; Z79.84 Long term (current) use of oral hypoglycemic drugs; Z87.891 Personal history of nicotine dependence
CPT/HCPCS: 36415; 71045; 80048; 80053; 80076; 82652; 82962; 83036; 83605; 83735; 83880; 83930; 83935; 84100; 84443; 85025; 85610; 87040; 87449; 87631; 87633; 87635; 87641; 93005; 94640; 94660; 94668; 94760; 97116; 97161; 97530; 99252; 99285; A4216; G0463

== ENCOUNTER 2024-12-08 13:08 | Outpatient (RCR) | payer MEDICARE, MEDICAID, SELFPAY ==
[2024-11-13 01:33] VITALS: BMI 36.6
[2024-11-17 10:46] LABS: Absolute Lymphocyte Count 1.87 X10^3/uL (0.83-4.51); Absolute Neutrophil Count 11.3 X10^3/uL (2.0-7.7); Basophil# 0.07 X10^3/uL; Basophil% 0.5 % (0-1); Eosinophil# 0.02 X10^3/uL; Eosinophils% 0.1 % (0-5); Hematocrit 41.1 % (37-47); Hemoglobin 13.3 g/dL (12.0-15.0); Lymphocyte # 1.87 X10^3/ul (0.83-4.51); Lymphocyte % 13.1 % (19-41); Mean Corp Hgb Conc 32.4 g/dL (32-36); Mean Corpuscular Hgb 28.9 pg (27.0-32.0); Mean Corpuscular Volume 89.2 fL (81-99); Mean Platelet Vol. 9.5 fl (6.2-12.0); Monocyte# 0.53 X10^3/uL; Monocyte% 3.7 % (0-10); NRBC Flagged by Analyzer 0 % (0-5); Neutrophil # 11.32 X10^3/uL (2.7-7.7); Neutrophil % 79.2 % (47-70); Platelet Count 262 K/mm3 (150-450); RBC Distribution Width CV 14.3 % (11.6-14.6); RBC Distribution Width SD 45.5 fl (35.1-43.9); Red Blood Count 4.61 M/mm3 (4.2-5.4); White Blood Count 14.3 K/mm3 (4.4-11.0)
[2024-12-08 13:24] LABS: Absolute Neutrophil Count 6.5 X10^3/uL (2.0-7.7); Basophil# 0.06 X10^3/uL; Basophil% 0.6 % (0-1); Eosinophil# 0.02 X10^3/uL; Eosinophils% 0.2 % (0-5); Hematocrit 41.7 % (37-47); Hemoglobin 13.7 g/dL (12.0-15.0); Lymphocyte % 25.5 % (19-41); Mean Corp Hgb Conc 32.9 g/dL (32-36); Mean Corpuscular Hgb 29.3 pg (27.0-32.0); Mean Corpuscular Volume 89.3 fL (81-99); Mean Platelet Vol. 9.5 fl (6.2-12.0); Monocyte# 0.69 X10^3/uL; NRBC Flagged by Analyzer 0 % (0-5); Neutrophil # 6.47 X10^3/uL (2.7-7.7); Neutrophil % 66.2 % (47-70); Platelet Count 225 K/mm3 (150-450); RBC Distribution Width CV 14.5 % (11.6-14.6); RBC Distribution Width SD 46.8 fl (35.1-43.9); Red Blood Count 4.67 M/mm3 (4.2-5.4); White Blood Count 9.8 K/mm3 (4.4-11.0)
== END 2024-12-10 18:00 | disposition home or self-care (01) ==
LOC: LAB 13:08
PROVIDERS: Family Provider Family Medicine; PCP Clinical Nurse Specialist Adult Health; Referring Provider Psychiatry & Neurology Psychiatry; Visit Provider Psychiatry & Neurology Psychiatry
DX: Z79.899 Other long term (current) drug therapy (principal)
CPT/HCPCS: 36415; 85025

== ENCOUNTER 2024-12-21 08:42 | Emergency (ER) | payer MEDICARE, MEDICAID, SELFPAY ==
[2024-12-21] VITALS (7 sets, daily range): BP systolic 137–152; BP diastolic 78–99; PULSE 78–108; RESP 16–20; TEMP 36.6–37.2; O2SAT 93–99; BMI 35.7
--- NOTE | 2024-12-21 08:48 | EKG12_ITS ---
Test Reason : GENERAL Blood Pressure : */* mmHG Vent. Rate : 104 BPM Atrial Rate : 104 BPM P-R Int : 178 ms QRS Dur : 74 ms QT Int : 316 ms P-R-T Axes : 57 20 60 degrees QTcB Int : 415 ms Sinus tachycardia Low voltage QRS Septal infarct , age undetermined Abnormal ECG Confirmed by TAMMY SANDERS, GLORIA ([id number]), book or script editor CRISTAL OTT ([id number]) on 12/27/2024 11:14:51 AM Referred By: Confirmed By: GLORIA MUNOZ MD
--- NOTE | 2024-12-21 08:48 | RAD_ITS ---
EXAM: XR Chest, 2 Views CLINICAL INDICATION: SOB TECHNIQUE: Frontal and lateral views of the chest. COMPARISON: No relevant prior studies available. FINDINGS: LUNGS AND PLEURAL SPACES: Pulmonary venous congestion. No consolidation. No pneumothorax. HEART: Unremarkable. No cardiomegaly. MEDIASTINUM: Unremarkable. Normal mediastinal contour. BONES/JOINTS: Unremarkable. No acute fracture. RAD/Chest PA and Lateral IMPRESSION: Pulmonary venous congestion. Reading Location: [facility]
--- NOTE | 2024-12-21 08:53 | EX.ED.DYSGE1 ---
HPI History of Present Illness Chief Complaint: Shortness of Breath Narrative Narrative: Patient is a 59-year-old female with past medical history of COPD, schizophrenia, 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 Patient states that she has been sick for past few days. She noted that recently she was in the hospital for pneumonia. Patient notes that she is very short of breath if she tries to lie down flat. Patient states that she is around 2 ill individuals right now in her alf. Patient states that she has been wheezing a lot lately. Per EMS they did not give any breathing treatments as her lungs were clear for them. [facility] Medical History Obesity (BMI 30-39.9) Hyponatremia Leukocytosis Respiratory insufficiency COPD exacerbation Pneumonia COPD exacerbation Schizophrenia LIDA on CPAP Obesity Anxiety and depression Type 2 diabetes mellitus COPD (chronic obstructive pulmonary disease) Restless leg syndrome GERD (gastroesophageal reflux disease) HTN (hypertension) Hyperlipidemia Home Medications ?Medication ?Instructions ?Recorded ?Last Taken ?Type cholecalciferol (vitamin D3) 25 1,000 unit PO DAILY SUPPLEMENT 10/17/17 07/30/21 History mcg (1,000 unit) capsule (Vitamin D3) aspirin 325 mg tablet,delayed 325 mg PO DAILY@1600 heart health 07/22/18 07/30/21 History release omeprazole 20 mg capsule,delayed 20 mg PO DAILY indigestion 10/31/19 07/30/21 History release potassium chloride 20 mEq 20 meq PO DAILY supplement 11/16/19 07/30/21 History tablet,extended release(part/cryst) clozapine 100 mg tablet 100 mg PO 4X/DAY SCHIZOPHRENIA 07/30/21 07/30/21 History empagliflozin 10 mg tablet 10 mg PO DAILY diabetes 07/30/21 07/30/21 History (Jardiance) furosemide 20 mg tablet 20 mg PO DAILY FLUID 07/30/21 07/30/21 History insulin glargine 100 unit/mL (3 48 unit subcut DAILY@1600 DM 07/30/21 07/30/21 History mL) subcutaneous pen (Lantus Solostar U-100 Insulin) metoprolol succinate 25 mg 25 mg PO QHS HTN 07/30/21 07/29/21 History tablet,extended release 24 hr clonazepam 0.5 mg tablet 1 mg PO BID schizophrenia 06/05/22 Unknown History ferrous sulfate 325 mg (65 mg 325 mg PO .BID with meals anemia 06/05/22 Unknown History iron) tablet (Feosol) pramipexole 0.5 mg tablet 0.25 mg PO QHS restless legs 06/05/22 Unknown History atorvastatin 10 mg tablet 10 mg PO DAILY Cholesterol 08/14/23 Unknown History guaifenesin 1,200 mg tablet, 1,200 mg PO DAILY congestion 08/14/23 Unknown History extended release 12 hr (Mucus Relief ER) haloperidol 2 mg tablet 2 mg PO QHS anxiety 08/14/23 Unknown History metformin 500 mg tablet,extended 1,000 mg PO BID Diabetes 08/14/23 Unknown History release 24 hr benztropine 0.5 mg tablet 0.5 mg PO BID tremors 08/15/23 Unknown History ondansetron 4 mg disintegrating 4 mg PO Q8H PRN PRN Nausea #14 tabs 12/13/23 Unknown Rx tablet peg 3350-electrolytes 236 240 ml PO Q10M PRN #4,000 mL 12/13/23 Unknown Rx gram-22.74 gram-6.74 gram-5.86 gram solution (Golytely) ondansetron 4 mg disintegrating 4 mg PO Q8H PRN PRN Nausea #10 tabs 10/14/24 Unknown Rx tablet docusate sodium 100 mg capsule mg PO 11/09/24 Unknown History fluticasone furoate 100 inhalation DAILY 11/09/24 Unknown History mcg-vilanterol 25 mcg/dose inhalation powder (Breo Ellipta) gabapentin 100 mg capsule mg 3XD 11/09/24 Unknown History guaifenesin 600 mg tablet, mg PO 11/09/24 Unknown History extended release 12 hr (Mucus Relief ER) omega-3 fatty acids-fish oil 300 cap 11/09/24 Unknown History mg-1,000 mg capsule paliperidone palmitate 234 mg/1.5 mg IM 11/09/24 Unknown History mL intramuscular syringe (Invega Sustenna) umeclidinium 62.5 mcg/actuation inhalation DAILY 11/09/24 Unknown History blister powder for inhalation (Incruse Ellipta) doxycycline hyclate 100 mg tablet 100 mg PO BID 7 days #14 tabs 11/12/24 Unknown Rx doxycycline monohydrate 100 mg 100 mg PO BID #11 tabs 11/12/24 Unknown Rx tablet prednisone 20 mg tablet 20 mg PO BID #14 tabs 11/12/24 Unknown Rx prednisone 20 mg tablet 40 mg (2 x 20 mg) PO DAILY #14 tabs 11/12/24 Unknown Rx ondansetron 4 mg disintegrating 4 mg PO Q6H PRN nausea and 12/21/24 Unknown Rx tablet vomiting #20 tabs prednisone 50 mg tablet 50 mg PO DAILY 4 days #4 tabs 12/21/24 Unknown Rx Allergy/AdvReac Type Severity Reaction Status Date / Time No Known Allergies Allergy Verified 11/09/24 18:15 Family History Mother Heart disease Hypertension Father COPD (chronic obstructive pulmonary disease) Cancer Surgical History History of mandibular surgery History of cholecystectomy Social History housing: other details: halfway. Smoking Status: Former smoker how long ago did patient quit smoking: Quit 10 years prior to 08/14/23 presentation, 2 ppd since teen until quit. alcohol intake: never substance use type: does not use ROS ROS ED ROS Narrative Constitutional: Denies fevers, chills, headaches, lightness, dizziness Cardiovascular: Denies chest pain or palpitations Respiratory: Complains of shortness of breath as noted above Abdomen: Denies abdominal pain nausea vomit diarrhea : Denies urinary symptoms Neurological: Denies numbness, weakness, tingling Musculoskeletal: Denies back pain Skin: Denies rashes or lesions EXAM Physical Exam Narrative Exam Narrative: General: Patient was lying in bed rest comfortably did not appear to be in acute distress Head: Atraumatic, normocephalic Eyes: PERRL bilaterally, EOMI bilateral, no conjunctival injection noted Neck: Soft, supple, trachea midline Cardiovascular: Regular rate and rhythm no murmurs gallops rubs noted Respiratory: Patient has mild end expiratory wheezing noted at the right lung base Abdomen: Soft, nondistended, tender to palpation Extremities: +5/5 strength noted in the bilateral upper and lower extremity, radial pulses +2/4 in the bilateral extremities, no pedal edema on exam Neurological: Patient following commands knew that she was at the hospital year is 2024 Skin: Warm, dry, intact no rashes or lesions noted Const Vital Signs: 12/21/24 08:44 12/21/24 08:47 12/21/24 08:48 Temperature 98 F Temperature Source Oral Pulse Rate 108 H Respiratory Rate 20 H Respiratory Effort Short of Breath Blood Pressure 152/88 H Blood Pressure Mean 109 Pulse Ox 95 96 Oxygen Delivery Method Room Air Room Air 12/21/24 09:13 12/21/24 10:43 12/21/24 12:00 Temperature Temperature Source Pulse Rate 108 H 78 78 Respiratory Rate 16 18 Respiratory Effort Blood Pressure 137/78 H 137/99 H Blood Pressure Mean 97 111 Pulse Ox 93 99 Oxygen Delivery Method Room Air MDM MDM MDM Narrative Medical decision making narrative: Patient is a 59-year-old female who presented to the emergency department chief complaint of shortness of breath. On the differential diagnose includes but not limited to pneumonia, upper EXTR infection secondary viral etiology, CHF, pneumothorax. Once workup is obtained reviewed she will be reevaluated. Patient will be given DuoNeb and oral prednisone. Patient will not be given 30 cc/kg bolus of IV fluids as there is concern for a volume overload state. Patient's CBC was reviewed showed a white blood count of 12,000, hemoglobin stable 12.7, platelet count was noted to be 186. Patient sodium normal 135, potassium of 4, creatinine normal at 0.46. Patient lactic acid normal 1.4, AST and ALT are 20 and 33 respectively. Patient's troponin was noted to be 7 with a delta troponin obtained noted to be 7. Patient is EKG reviewed showed sinus tachycardia at the rate of 104 bpm. Patient proBNP was less than 36, urinalysis showed thousand glucose but no evidence of infection. Patient's chest x-ray was reviewed by myself and by radiology which showed pulmonary venous congestion. Patient tested positive for COVID here in the emergency department. Patient ambulated well here in the emergency department no hypoxia no tachycardia. Discussed the results with the patient she would like to go home at this point time. Patient will be given prednisone 50 mg for the next 4 days. Zofran prescription sent to the pharmacy as well. She is advised to return with worsening symptoms and concerns. She was advised to follow-up with her primary care physician outpatient setting. She is agreeable this plan all question concerns answered she was discharged home in stable condition. Lab Data Labs: Laboratory Results - last 24 hr 12/21/24 12/21/24 12/21/24 08:58 08:58 10:00 WBC Cancelled 12.3 H Corrected WBC Cancelled RBC Cancelled 4.30 Hgb Cancelled 12.7 Hct Cancelled 38.1 MCV Cancelled 88.6 MCH Cancelled 29.5 MCHC Cancelled 33.3 RDW Std Deviation Cancelled 46.4 H RDW Coeff of Tyesha Cancelled 14.3 Plt Count Cancelled 186 MPV Cancelled 9.4 Immature Gran % (Auto) Cancelled 0.400 Neut % (Auto) Cancelled 86.0 H Lymph % (Auto) Cancelled 8.6 L Levy % (Auto) Cancelled 4.7 Eos % (Auto) Cancelled 0.1 Baso % (Auto) Cancelled 0.2 Absolute Neuts (auto) Cancelled 10.6 H Absolute Lymphs (auto) Cancelled 1.06 Total Counted Cancelled Neutrophils % (Manual) Cancelled Band Neutrophils % Cancelled Lymphocytes % (Manual) Cancelled Monocytes % (Manual) Cancelled Eosinophils % (Manual) Cancelled Basophils % (Manual) Cancelled Metamyelocytes % Cancelled Myelocytes % Cancelled Promyelocytes % Cancelled Blast Cells % Cancelled Plasma Cell % (Manual) Cancelled Other Cells % Cancelled Nucleated RBC % Cancelled 0 Nucleated RBCs/100 WBC Cancelled Differential Comment Cancelled Diff Path Review Cancelled Hypersegmented Neuts Cancelled Atypical Lymphocytes Cancelled Reactive Lymphocytes Cancelled Smudge Cells Cancelled Toxic Granulation Cancelled Toxic Vacuolation Cancelled Dohle Bodies Cancelled Harjit Rods Cancelled Platelet Estimate Cancelled Plt Morphology Comment Cancelled RBC Morphology Cancelled Cancelled Polychromasia Cancelled Hypochromasia Cancelled Basophilic Stippling Cancelled Anisocytosis Cancelled Microcytosis Cancelled Macrocytosis Cancelled Spherocytes Cancelled Sickle Cells Cancelled Target Cells Cancelled Tear Drop Cells Cancelled Ovalocytes Cancelled Stomatocytes Cancelled Mtz-Struble Bodies Cancelled Sara Cells Cancelled Bite Cells Cancelled Crenated Cell Cancelled Acanthocytes (Spur) Cancelled Rouleaux Cancelled Schistocytes Cancelled PT 13.0 INR 1.0 APTT 35.4 Sodium Cancelled 135 Potassium Cancelled 4.0 Chloride Cancelled 102 Carbon Dioxide Cancelled 22.6 Anion Gap Cancelled 11 BUN Cancelled 9 Creatinine Cancelled 0.46 L Estim Creat Clear Calc Cancelled 127.81 Est GFR (MDRD) Non-Af Cancelled 109 BUN/Creatinine Ratio Cancelled 19.2 Glucose Cancelled 124 H Lactic Acid Cancelled 1.4 Calcium Cancelled 8.1 Total Bilirubin Cancelled 0.29 AST Cancelled 28 ALT Cancelled 33 Alkaline Phosphatase Cancelled 108 H Troponin T High Sens Troponin T Hi Sens 2 Hr NT pro BNP II Cancelled < 36 Total Protein Cancelled 6.3 Albumin Cancelled 3.7 Globulin Cancelled 2.6 Albumin/Globulin Ratio Cancelled 1.4 Urine Color Yellow Urine Clarity Clear Urine pH 6.5 Ur Specific [place] 1.010 Urine Protein 15 H Urine Glucose (UA) 1000 H Urine Ketones Negative Urine Occult Blood Negative Urine Nitrite Negative Urine Bilirubin Negative Urine Urobilinogen Normal Ur Leukocyte Esterase Negative Urine RBC 0 SEEN Urine WBC 0 SEEN Ur Squamous Epith Cells 0 SEEN Urine Bacteria 0 SEEN Urine Mucus 0 SEEN 12/21/24 12/21/24 10:15 11:23 WBC Corrected WBC RBC Hgb Hct MCV MCH MCHC RDW Std Deviation RDW Coeff of Tyesha Plt Count MPV Immature Gran % (Auto) Neut % (Auto) Lymph % (Auto) Levy % (Auto) Eos % (Auto) Baso % (Auto) Absolute Neuts (auto) Absolute Lymphs (auto) Total Counted Neutrophils % (Manual) Band Neutrophils % Lymphocytes % (Manual) Monocytes % (Manual) Eosinophils % (Manual) Basophils % (Manual) Metamyelocytes % Myelocytes % Promyelocytes % Blast Cells % Plasma Cell % (Manual) Other Cells % Nucleated RBC % Nucleated RBCs/100 WBC Differential Comment Diff Path Review Hypersegmented Neuts Atypical Lymphocytes Reactive Lymphocytes Smudge Cells Toxic Granulation Toxic Vacuolation Dohle Bodies Harjit Rods Platelet Estimate Plt Morphology Comment RBC Morphology Polychromasia Hypochromasia Basophilic Stippling Anisocytosis Microcytosis Macrocytosis Spherocytes Sickle Cells Target Cells Tear Drop Cells Ovalocytes Stomatocytes Mtz-Struble Bodies [place] Cells Bite Cells Crenated Cell Acanthocytes (Spur) Rouleaux Schistocytes PT INR APTT Sodium Potassium Chloride Carbon Dioxide Anion Gap BUN Creatinine Estim Creat Clear Calc Est GFR (MDRD) Non-Af BUN/Creatinine Ratio Glucose Lactic Acid Calcium Total Bilirubin AST ALT Alkaline Phosphatase Troponin T High Sens 7 Troponin T Hi Sens 2 Hr 7 NT pro BNP II Total Protein Albumin Globulin Albumin/Globulin Ratio Urine Color Urine Clarity Urine pH Ur Specific [place] Urine Protein Urine Glucose (UA) Urine Ketones Urine Occult Blood Urine Nitrite Urine Bilirubin Urine Urobilinogen Ur Leukocyte Esterase Urine RBC Urine WBC Ur Squamous Epith Cells Urine Bacteria Urine Mucus Radiography Diagnostic Testing: Clinical Impression(s) from Imaging Studies Chest X-Ray 12/21/24 08:48 IMPRESSION: Pulmonary venous congestion. Reading Location: [facility] Discharge Plan Triage Chief Complaint: Shortness of Breath ED Provider: Babak Garcia Dx/Rx/DC Orders Clinical Impression: COPD exacerbation, COVID-19 Prescriptions: New prednisone 50 mg tablet 50 mg PO DAILY 4 Days Qty: 4 0RF ondansetron 4 mg tablet,disintegrating 4 mg PO Q6H PRN (Reason: nausea and vomiting) Qty: 20 0RF No Action cholecalciferol (vitamin D3) [Vitamin D3] 1,000 UNIT capsule 1,000 unit PO DAILY aspirin 325 MG tablet,delayed release (DR/EC) 325 mg PO DAILY@1600 omeprazole 20 MG capsule,delayed release(DR/EC) 20 mg PO DAILY potassium chloride 20 MEQ tablet 20 meq PO DAILY metoprolol succinate 25 mg Tablet Extended Release 24 Hr 25 mg PO QHS Jardiance 10 mg Tablet 10 mg PO DAILY furosemide 20 mg tablet 20 mg PO DAILY insulin glargine [Lantus Solostar U-100 Insulin] 100 unit/mL (3 mL) insulin pen 48 unit SUBCUT DAILY@1600 clozapine 100 MG tablet 100 mg PO 4X/DAY clonazepam 0.5 mg Tablet 1 mg PO BID pramipexole 0.5 mg Tablet 0.25 mg PO QHS Rx Instructions: Take half table PO at bedtime ferrous sulfate [Feosol] 325 mg (65 mg iron) Tablet 325 mg PO .BID with meals metformin 500 mg tablet extended release 24 hr 1,000 mg PO BID haloperidol 2 mg tablet 2 mg PO QHS guaifenesin [Mucus Relief ER] 1,200 mg tablet extended release 12hr 1,200 mg PO DAILY atorvastatin 10 mg tablet 10 mg PO DAILY benztropine 0.5 mg tablet 0.5 mg PO BID ondansetron 4 mg tablet,disintegrating 4 mg PO Q8H PRN PRN (Reason: Nausea) Qty: 10 0RF ondansetron 4 mg tablet,disintegrating 4 mg PO Q8H PRN PRN (Reason: Nausea) Qty: 14 0RF peg 3350-electrolytes [Golytely] 236-22.74-6.74 -5.86 gram recon soln 240 ml PO Q10M PRN Qty: 4000 0RF Rx Instructions: until fecal effluent is clear docusate sodium 100 mg capsule PO gabapentin 100 mg capsule 3XD omega-3 fatty acids-fish oil 300-1,000 mg capsule Patient Comments: [NO ORIGINAL SIG] Invega Sustenna 234 mg/1.5 mL syringe IM fluticasone furoate-vilanterol [Breo Ellipta] 100-25 mcg/dose blister with device INHALATION DAILY guaifenesin [Mucus Relief ER] 600 mg tablet extended release 12hr PO Patient Comments: [NO ORIGINAL SIG] Incruse Ellipta 62.5 mcg/actuation blister with device INHALATION DAILY prednisone 20 mg tablet 20 mg PO BID Qty: 14 0RF Rx Instructions: Continue this prescription until it runs out then discontinue doxycycline hyclate 100 mg tablet 100 mg PO BID 7 Days Qty: 14 0RF Rx Instructions: Continue doxycycline for a total of 5 more days prednisone 20 mg tablet 40 mg PO DAILY Qty: 14 0RF Rx Instructions: 2 tablets once a day for 7 days then discontinue doxycycline monohydrate 100 mg tablet 100 mg PO BID Qty: 11 0RF Rx Instructions: 1 twice a day for 11 doses beginning 11/12/2024 then discontinue Primary Care Provider: Shelia Villavicencio Referrals: Shelia Villavicencio, [employer] [Primary Care Provider] - Activity Restrictions/Additional Instructions: You tested positive for COVID-19 here in the emergency department. Start the steroid that was sent to your pharmacy tomorrow as you were given a dose here today already. Use Zofran as needed for nausea. Ensure adequate hydration. Return with worsening symptoms or any concerns. Follow-up with your doctor in outpatient setting. Print Language: Chinese Disposition Disposition: Home, Self Care
[2024-12-21] MEDS: predniSONE 20 MG Tablet 60 MG PO (09:04)
[2024-12-21] MEDS: 0.9% Normal Saline (1000mL) 1,000 ML 999 ML IV (09:04)
[2024-12-21] MEDS: Ipratropium/Albuterol Sulfate 3 ML AMPUL.NEB INHALATION (09:05)
[2024-12-21 09:14] LABS: Bacteria 0 SEEN /hpf (None Seen); Mucous, Urine 0 SEEN /hpf (<or=2+); Squamous Epithelial Cells - UA 0 SEEN /hpf (5-10); White Blood Cells 0 SEEN /hpf (0-5)
[2024-12-21 09:34] LABS: Partial Thromboplast Time 35.4 Seconds (24.1-36.2)
[2024-12-21 09:51] LABS: Color, Urine Yellow (Yellow); Glucose, Dipstick 1000 mg/dl (Normal); Ketone-Dipstick Negative (Negative); Leukocyte Esterase-Dipstick Negative /ul (Negative); Nitrite-Dipstick Negative (Negative); Occult Blood-Urine Negative /ul (Negative); Protein-Dipstick 15 mg/dl (Negative); Urine Bilirubin Dipstick Negative (Negative); Urine Clarity Clear (Clear); Urine Urobilinogen Normal (Normal); Urine pH 6.5 (5.0 - 8.0)
[2024-12-21 09:53] LABS: Red Blood Cells-Urine 0 SEEN /hpf (0-5)
[2024-12-21 10:18] LABS: Absolute Lymphocyte Count 1.06 X10^3/uL (0.83-4.51); Absolute Neutrophil Count 10.6 X10^3/uL (2.0-7.7); Basophil# 0.03 X10^3/uL; Basophil% 0.2 % (0-1); Eosinophil# 0.01 X10^3/uL; Eosinophils% 0.1 % (0-5); Hematocrit 38.1 % (37-47); Hemoglobin 12.7 g/dL (12.0-15.0); Lymphocyte # 1.06 X10^3/ul (0.83-4.51); Lymphocyte % 8.6 % (19-41); Mean Corp Hgb Conc 33.3 g/dL (32-36); Mean Corpuscular Hgb 29.5 pg (27.0-32.0); Mean Corpuscular Volume 88.6 fL (81-99); Mean Platelet Vol. 9.4 fl (6.2-12.0); Monocyte# 0.58 X10^3/uL; Monocyte% 4.7 % (0-10); NRBC Flagged by Analyzer 0 % (0-5); Platelet Count 186 K/mm3 (150-450); RBC Distribution Width CV 14.3 % (11.6-14.6); RBC Distribution Width SD 46.4 fl (35.1-43.9); White Blood Count 12.3 K/mm3 (4.4-11.0)
[2024-12-21 10:53] LABS: Lactic Acid 1.4 mmol/L (0.0-2.0)
[2024-12-21 10:56] LABS: ALB/GLOB Ratio 1.4 RATIO (0.9-2.4); AST(SGOT) 28 U/L (<=31); Alanine Aminotransfer ALT/SGPT 33 U/L (<=34); Albumin, Serum 3.7 g/dL (3.4-4.8); Alkaline Phosphatase 108 U/L (35-104); Anion Gap 11 (5-15); BUN 9 mg/dL (4-19); BUN/Creat Ratio 19.2 RATIO (10-20); Calcium,Total 8.1 mg/dL (7.6-11.0); Carbon Dioxide 22.6 mmol/L (21.0-32.0); Chloride 102 mmol/L (98-108); Creatinine, Serum 0.46 mg/dL (0.70-1.20); EST Glomerular Filtration Rate 109 (>60); Estimated Creatinine Clearance 127.81 ml/min (50-250); Globulin 2.6 g/dL (2.2-4.2); Glucose 124 mg/dL (70-99); Pro- Brain NATRIURETIC PEPTIDE < 36 pg/mL (<=900); Protein, Total 6.3 g/dL (5.9-8.4); Sodium Level 135 mmol/L (133-145); Total Bilirubin 0.29 mg/dL (0.00-1.30)
[2024-12-21 11:09] LABS: Troponin T High Sensitivity 7 ng/L (<=14)
[2024-12-21 11:52] LABS: Troponin T High Sens 2 HR 7 ng/L (<=14)
== END 2024-12-21 12:30 | disposition home or self-care (01) ==
PROVIDERS: Emergency Provider Emergency Medicine; PCP Clinical Nurse Specialist Adult Health; Visit Provider Emergency Medicine
DX: J44.1 Chronic obstructive pulmonary disease with (acute) exacerbation (principal); E11.9 Type 2 diabetes mellitus without complications; U07.1 COVID-19; G47.33 Obstructive sleep apnea (adult) (pediatric); Z87.891 Personal history of nicotine dependence; Z79.899 Other long term (current) drug therapy
CPT/HCPCS: 71046; 80053; 81001; 83605; 83880; 84484; 85025; 85610; 85730; 87040; 87086; 87088; 87631; 93005; 94640; 96360; 99285; A4216

== ENCOUNTER 2025-01-04 14:56 | Outpatient (RCR) | payer MEDICARE, MEDICAID, SELFPAY ==
[2024-12-11 04:48] VITALS: BMI 36.6
[2025-01-04 15:57] LABS: Absolute Lymphocyte Count 2.29 X10^3/uL (0.83-4.51); Absolute Neutrophil Count 8.8 X10^3/uL (2.0-7.7); Basophil# 0.04 X10^3/uL; Basophil% 0.3 % (0-1); Eosinophil# 0.03 X10^3/uL; Eosinophils% 0.2 % (0-5); Hematocrit 39.5 % (37-47); Hemoglobin 13.1 g/dL (12.0-15.0); Lymphocyte # 2.29 X10^3/ul (0.83-4.51); Mean Corp Hgb Conc 33.2 g/dL (32-36); Mean Corpuscular Hgb 29.1 pg (27.0-32.0); Mean Corpuscular Volume 87.8 fL (81-99); Mean Platelet Vol. 10.1 fl (6.2-12.0); Monocyte# 0.78 X10^3/uL; Monocyte% 6.5 % (0-10); NRBC Flagged by Analyzer 0 % (0-5); Neutrophil # 8.83 X10^3/uL (2.7-7.7); Neutrophil % 73.3 % (47-70); Platelet Count 195 K/mm3 (150-450); RBC Distribution Width CV 13.9 % (11.6-14.6); RBC Distribution Width SD 44.7 fl (35.1-43.9); White Blood Count 12.1 K/mm3 (4.4-11.0)
== END 2025-01-04 18:00 | disposition home or self-care (01) ==
LOC: LAB 14:56
PROVIDERS: Family Provider Family Medicine; PCP Clinical Nurse Specialist Adult Health; Referring Provider Psychiatry & Neurology Psychiatry; Visit Provider Psychiatry & Neurology Psychiatry
DX: Z79.899 Other long term (current) drug therapy (principal)
CPT/HCPCS: 36415; 85025

== ENCOUNTER 2025-02-02 14:17 | Outpatient (RCR) | payer MEDICARE, MEDICAID, SELFPAY ==
[2025-01-10 22:11] VITALS: BMI 36.6
[2025-02-02 15:54] LABS: Absolute Neutrophil Count 6.4 X10^3/uL (2.0-7.7); Basophil# 0.05 X10^3/uL; Basophil% 0.5 % (0-1); Eosinophil# 0.04 X10^3/uL; Eosinophils% 0.4 % (0-5); Hematocrit 38.7 % (37-47); Hemoglobin 12.9 g/dL (12.0-15.0); Lymphocyte % 27.4 % (19-41); Mean Corp Hgb Conc 33.3 g/dL (32-36); Mean Corpuscular Hgb 28.9 pg (27.0-32.0); Mean Corpuscular Volume 86.6 fL (81-99); Mean Platelet Vol. 10.3 fl (6.2-12.0); Monocyte% 8.8 % (0-10); NRBC Flagged by Analyzer 0 % (0-5); Neutrophil # 6.36 X10^3/uL (2.7-7.7); Neutrophil % 62.2 % (47-70); POSITIVE MORPHOLOGY YES; Platelet Count 213 K/mm3 (150-450); RBC Distribution Width CV 13.2 % (11.6-14.6); RBC Distribution Width SD 41.5 fl (35.1-43.9); Red Blood Count 4.47 M/mm3 (4.2-5.4); White Blood Count 10.2 K/mm3 (4.4-11.0)
[2025-02-02 16:29] LABS: Differential Indicated SCAN CRITERIA MET
[2025-02-02 19:26] LABS: Reactive Lymphocyte RARE
== END 2025-02-09 18:00 | disposition home or self-care (01) ==
LOC: LAB 14:17
PROVIDERS: Family Provider Family Medicine; PCP Family Medicine; Referring Provider Psychiatry & Neurology Psychiatry; Visit Provider Psychiatry & Neurology Psychiatry
DX: Z79.899 Other long term (current) drug therapy (principal)
CPT/HCPCS: 36415; 85025

== ENCOUNTER → 2025-03-01 | Outpatient (REF) | payer MEDICARE, MEDICAID, SELFPAY ==
[2025-03-01 08:31] LABS: Absolute Lymphocyte Count 1.91 X10^3/uL (0.83-4.51); Absolute Neutrophil Count 9.8 X10^3/uL (2.0-7.7); Basophil# 0.05 X10^3/uL; Basophil% 0.4 % (0-1); Eosinophil# 0.02 X10^3/uL; Eosinophils% 0.2 % (0-5); Hematocrit 39.9 % (37-47); Hemoglobin 13.4 g/dL (12.0-15.0); Lymphocyte # 1.91 X10^3/ul (0.83-4.51); Mean Corp Hgb Conc 33.6 g/dL (32-36); Mean Corpuscular Hgb 29.5 pg (27.0-32.0); Mean Corpuscular Volume 87.7 fL (81-99); Mean Platelet Vol. 10.9 fl (6.2-12.0); Monocyte# 0.84 X10^3/uL; Monocyte% 6.6 % (0-10); NRBC Flagged by Analyzer 0 % (0-5); Neutrophil # 9.82 X10^3/uL (2.7-7.7); Neutrophil % 77.2 % (47-70); Platelet Count 212 K/mm3 (150-450); RBC Distribution Width CV 14.1 % (11.6-14.6); RBC Distribution Width SD 44.8 fl (35.1-43.9); Red Blood Count 4.55 M/mm3 (4.2-5.4); White Blood Count 12.7 K/mm3 (4.4-11.0)
== END ==
LOC: OLS.SWAL 07:05
PROVIDERS: PCP Family Medicine
DX: Z79.899 Other long term (current) drug therapy (principal)
CPT/HCPCS: 36415; 85025

== ENCOUNTER → 2025-03-28 | Outpatient (REF) | payer MEDICARE, MEDICAID, SELFPAY ==
--- OUTSIDE RECORDS SUMMARY | 2025-03-28 04:56 | XMS RPT_ITS | CCD ---
Author Organization [facility] Care Team Providers Care Floor Assembler Name Role Phone KIMBERLY AMAYA Unavailable Unavailable KIMBERLY AMAYA Unavailable Unavailable Aleksandar Jones Unavailable Unavailable KIMBERLY AMAYA Unavailable Unavailable KIMBERLY AMAYA Unavailable Unavailable Aleksandar Jones Unavailable Unavailable Aleksandar Jones MD Primary Care Provider Koby Floyd Unavailable Aleksandar Jones MD Primary Care Provider Koby Floyd Unavailable Aleksandar Jones MD Primary Care Provider Aleksandar Jones MD Primary Care Provider Koby Floyd Unavailable Dr. Aleksandar Jones Primary Care Provider Dr. Jey Quesada Emergency Provider Dr. Amy Moreno Admit Provider Dr. Amy Moreno Attending Provider Dr. Amy Moreno Other Provider Dr. Hesham Noguera Attending Provider Unavailable Dr. Hesham Noguera Other Provider Unavailable Dr. Aleksandar Jones Primary Care Provider Dr. Jey Quesada Emergency Provider Dr. Amy Moreno Admit Provider Dr. Amy Moreno Attending Provider Dr. Amy Moreno Other Provider Dr. Hesham Noguera Attending Provider Unavailable Dr. Hesham Noguera Other Provider Unavailable Dr. Aleksandar Jones Primary Care Provider Dr. Jey Quesada Emergency Provider Dr. Amy Moreno Admit Provider Dr. Amy Moreno Other Provider Dr. Hesham Noguera Attending Provider Unavailable Aleksandar Jones MD Primary Care Provider [facility], Kaitlyn Unavailable Haagen RUBBER CUTTER AND SHAPE CARVER.TANNING SALON ATTENDANT, Radha Unavailable Suppan RUBBER CUTTER AND SHAPE CARVER.TANNING SALON ATTENDANT, Shelia A Unavailable Suppan RUBBER CUTTER AND SHAPE CARVER.TANNING SALON ATTENDANT, Shelia A Unavailable [phone] Suppan RUBBER CUTTER AND SHAPE CARVER.TANNING SALON ATTENDANT, Shelia A Unavailable Robert SANDERS, Dr. Escalante Family Provider Dr. Lorraine Springer MD Attending Provider Dr. Lorraine Springer MD Referring Provider Suppan MANAGER MAIL, Shelia Primary Care Provider Dr. Tae Holland DO Attending Provider Dr. Tae Holland DO Referring Provider Dr. Tae Holland DO Emergency Provider Dr. Francisco Thompson DO Emergency Provider Dr. Hesham Amato DO Admit Provider Unavail able Dr. Hesham Amato DO Other Provider Unavail able Dr. Ana Lilia Lebron DO Attending Provider Dr. Ana Lilia Lebron DO Other Provider Dr. Babak Garcia DO Emergency Provider Dr. Aleksandar Jones MD Family Provider Dr. Lorraine Springer MD Attending Provider Dr. Lorraine Springer MD Referring Provider Suppan MANAGER MAIL, Shelia Primary Care Provider Dr. Babak Garcia DO Attending Provider Suppan, Shelia Primary Care Unavailable Hesham Amato Admitting Unavailable Hesham Amato Consulting Unavailable Ana Lilia Lebron Attending Unavailable Ana Lilia Lebron Consulting Unavailable [facility] Primary Care Unavailable Astreika, Vera Attending Unavailable Astreika, Vera Referring Unavailable [facility] Primary Care Unavailable [facility] Attending Unavailable Suppan, [facility] Unavailable Astreika, Vera Referring Unavailable Astreika, Vera Attending Unavailable [facility] Primary Care Unavailable Astreika, Vera Referring Unavailable Astreika, Vera [facility] Astreika, Vera Attending Unavailable Astreika, Vera Referring Unavailable Sibilia, Koby V Referring Unavailable Sibilia, Koby V Attending Unavailable [facility] Primary Care Unavailable [facility] Primary Care Unavailable Astreika, Vera Attending Unavailable Astreika, Vera Referring Unavailable [facility] Primary Care Unavailable Astreika, Vera Attending Unavailable Astreika, Vera Referring Unavailable Hesham Amato Consulting Unavailable Hesham Amato Admitting Unavailable Ana Lilia Lebron [facility]ending [facility]available Astreika, Vera Attending Unavailable [facility] Primary Care Unavailable Astreika, Vera Referring Unavailable Sibilia, Koby V Attending Unavailable [facility] Primary Care Unavailable [facility] Care Unavailable Astreika, Vera Attending Unavailable Astreika, Vera Referring Unavailable Suppan, [facility] Primary Care Unavailable Tae Holland Referring Unavailable Tae Holland [facility]ending [facility]available Babak Garcia Attending Unavailable [facility] Primary Care Unavailable Astreika, Vera Attending Unavailable Astreika, Vera Referring Unavailable Suppan, [facility] Unavailable Astreika, Vera Attending Unavailable Astreika, Vera Referring Unavailable Suppan, Shelia Primary Care Unavailable Astreika, Vera Attending Unavailable Astreika, Vera Referring Unavailable Suppan, [facility] Unavailable Astreika, Vera Attending Unavailable Astreika, Vera Referring Unavailable Hesham Amato Attending Unavailable [facility] Primary Care Unavailable RADHA BATISTA Referring Unavailable [facility] Primary Care Unavailable HAAGEN, RADHA Attending Unavailable ROBERT, ALEKSANDAR Jeffrey Primary Care Unavailable HAAGEN, RADHA Attending Unavailable ROBERT, ALEKSANDAR Jeffrey Primary Care Unavailable HAAGEN, RADHA Referring Unavailable GERARDO DAVIS Attending Unavailable ROBERT, ALEKSANDAR Jeffrey Primary Care Unavailable ROBERT, ALEKSANDAR Jeffrey Referring Unavailable ROBERT, ALEKSANDAR Jeffrey Primary Care Unavailable ROBERT, ALEKSANDAR Jeffrey Attending Unavailable ROBERT, ALEKSANDAR Jeffrey Primary Care Unavailable SHELIA SALMON Attending Unavailable ROBERT, ALEKSANDAR Jeffrey Primary Care Unavailable ROBERT, ALEKSANDAR Jeffrey Primary Care Unavailable HAAGEN, RADHA Attending Unavailable ROBERT, ALESKANDAR Jeffrey Primary Care Unavailable HAAGEN, RADHA Referring Unavailable ROBERT, ALEKSANDAR Jeffrey Primary Care Unavailable HAAGEN, RADHA Referring Unavailable GOLIAS, GERARDO Attending Unavailable ROBERT, ALEKSANDAR Jeffrey Primary Care Unavailable HAAGEN, RADHA Referring Unavailable ROBERT, ALEKSANDAR Jeffrey Primary Care Unavailable SLEIK, TERESAALED MELOUD Referring Unavailable WILDA, RADHA Attending Unavailable ROBERT, ALEKSANDAR Jeffrey Primary Care Unavailable SLEIK, KHALED MELOUD Referring Unavailable SLEIK, FUENTES LORENZANAD Attending Unavailable ROBERT, ALEKSANDAR Jeffrye Primary Care Unavailable ROBERT, ALEKSANDAR Jeffrey Referring Unavailable ROBERT, ALEKSANDAR Jeffrey Primary Care Unavailable HAAGEN, RADHA Attending Unavailable ROBERT, ALEKSANDAR Jeffrey Primary Care Unavailable SLEIK, MAXXD MELNATHAND Referring Unavailable ROBERT, ALEKSANDAR Jeffrey Attending Unavailable ROBERT, ALEKSANDAR Jeffrey Primary Care Unavailable HAAGEN, RADHA Referring Unavailable ROBERT, ALEKSANDAR Jeffrey Primary Care Unavailable ROBERT, ALEKSANDAR Jeffrey Referring Unavailable ROBERT, ALEKSANDAR Jeffrey Primary Care Unavailable WILDA, RADHA Referring Unavailable ROBERT, ALEKSANDAR Jeffrey Primary Care Unavailable NINAAGEN, RADHA Referring Unavailable ROBERT, ALEKSANDAR Jeffrey Primary Care Unavailable ZAIRA MANCILLA Referring Unavailable ROBERT, ALEKSANDAR Jeffrey Primary Care Unavailable HAAGEN, RADHA Referring Unavailable ROBERT, ALEKSANDAR Jeffrey Primary Care Unavailable ROBERT, ALEKSANDAR Jeffrey Referring Unavailable ROBERT, ALEKSANDAR Jeffrey Primary Care Unavailable ROBERT, ALEKSANDAR Jeffrey Primary Care Unavailable HAAGEN, RADHA Referring Unavailable ROBERT, ALEKSANDAR Jeffrey Primary Care Unavailable NINAAGEN, RADHA Attending Unavailable ROBERT, ALEKSANDAR Jeffrey Primary Care Unavailable HAKEVIN, RADHA Attending Unavailable ROBERT, ALEKSANDAR Jeffrey Primary Care Unavailable HAAGEN, RADHA Referring Unavailable ROBERT, ALEKSANDAR Jeffrey Primary Care Unavailable HAAGEN, RADHA Referring Unavailable SAMSON, GERARDO Attending Unavailable ROBERT, ALEKSANDAR Jeffrey Primary Care Unavailable HAAGEN, RADHA Attending Unavailable Medications Current Medications Medication Drug Class(es) Dates Sig (Normalized) Sig (Original) acetaminophen 325 mg oral tablet (20 sources) Start: 12-07-2024 End: 01-25-2025 take 2 tablets by mouth twice daily acetaminophen (TYLENOL) 325 mg tablet Indications: Leg pain, bilateral Take 2 tablets by mouth two times a day. 120 tablet 01/25/2025 Active Start: 11-09-2024 End: 11-09-2024 acetaminophen 1,000 mg tab(s ) (TYLENOL) Start: 11-09-2024 End: 11-09-2024 take 1 dose by mouth once 1,000 mg, ORAL, ONCE, 1 dose , On Fri11/09/24 at 1730 Start: 08-29-2021 End: 08-24-2024 take 500-1000 mg by mouth every eight hours as needed acetaminophen (TYLENOL EXTRA STRENGTH) 500 mg tablet Take 1-2 tablets by mouth every 8 hours as needed for pain. 60 tablet 5 08/29/2021 08/24/2024 Discontinued (Discontinued by another Health Care Provider) Start: 12-31-2019 End: 11-29-2020 take 500-1000 mg by mouth every eight hours as needed acetaminophen (TYLENOL EXTRA STRENGTH) 500 mg tablet Take 1-2 tablets by mouth every 8 hours as needed for Pain. 60 tablet 5 12/31/2019 11/29/2020 Discontinued Comment on above: Take 1-2 tablets by mouth every 8 hours as needed for pain. Administered Medications Medication Order MAR Action Action Date Dose Rate Site tuberculin skin test, unspecified formulation Given 12/03/2019 (1 source) Administered Medications Medication Order MAR Action Action Date Dose Rate Site tuberculin skin test, unspecified formulation Given 12/03/2019 [id number] 200 actuat albuterol 0.09 mg/actuat metered dose inhaler (20 sources) beta2-Adrenergic Agonist Start: 4 End: 5 take 2 puff(s) by inhalation every four hours as needed for wheezing albuterol HFA (VENTOLIN HFA) 90 mcg/actuation inhaler Inhale 2 Puffs as instructed every 4 hours as needed for wheezing/shortness of breath. 1 Each 1 2024 Active Start: 08-13-2024 take 2.5 mg by inhal ation every four hours as needed albuterol (PROVENTIL) 2.5 mg /3 mL (0.083 %) nebulizer solution Use 2.5 mg via nebulizer every 4 hours as needed. Every morning 08/13/2024 Active Start: 03-28-2020 End: 04-29-2023 take 2 puff(s) by inhalation every four hours as needed for cough albuterol HFA (PROAIR HFA) 90 mcg/actuation inhaler Indications: Bronchitis Inhale 2 Puffs as instructed every 4 hours as needed (FOR COUGH OR WHEEZE). 1 Inhaler 6 03/28/2020 04/29/2023 Discontinued (Other) Start: 07-29-2015 End: 07-29-2015 take 1 puff(s) by inhalation four times daily Albuterol Sulfate (Ventolin Hfa) 1 INHALER inhaler Discontinued 2 PUFF INHALATION 4 TIMES DAILY July 29, 2015 2:19pm July 29, 2015 2:21pm Start: 07-29-2015 End: 07-29-2015 Albuterol Sulfate (Ventolin Hfa (Sp)) 1 INHALER inhaler Discontinued 2 PUFF INHALATION 4 TIMES DAILY July 29, 2015 2:09pm July 29, 2015 2:19pm Start: 07-29-2015 End: 07-29-2015 Albuterol Sulfate (Ventolin Hfa) 1 INHALER inhaler Discontinued 2 NMA INHALATION 4 TIMES DAILY July 29, 2015 2:19pm July 29, 2015 2:21pm Start: 07-29-2015 End: 07-29-2015 take 1 puff(s) by inhalation four times daily Albuterol Sulfate (Ventolin Hfa) 1 INHALER inhaler Discontinued 2 PUFF INHALATION 4 TIMES DAILY July 29, 2015 2:19pm July 29, 2015 2:21pm Comment on above: Inhale 2 Puffs as in structed every 4 hours as needed (FOR COUGH OR WHEEZE). aspirin 325 mg delayed release oral tablet (20 sources) Platelet Aggregation Inhibitor, Nonsteroidal Anti-inflammatory Drug Start: 07-22-20 18 End: 06-17-20 take 1 tablet by mouth once daily at mealtime aspirin, enteric coated (ASPIRIN, ENTERIC COATED) 325 mg EC tablet Take 1 tablet by mouth once daily. Take with food. 30 tablet 06/17/2024 06/17/2025 Active Comment on above: Take 1 tablet by rosemary th once daily. Take with food. atorvastatin 10 mg oral tablet (20 sources) HMG-CoA Reductase Inhibitor Start: 03-26-20 End: 09-20-20 take 1 tablet by mouth once daily Atorvastatin 10 mg tablet Active 10 mg PO DAILY August 14, 2023 12:00am Start: 05-02-2022 End: 10-04-2022 take 1 tablet by mouth once daily at bedtime for hyperlipidemia atorvastatin (LIPITOR) 10 mg tablet Take 1 tablet by mouth daily at bedtime. For cholesterol. 30 tablet 5 10/04/2022 Active Comment on above: Take 1 tablet by rosemary th daily at bedtime. For cholesterol. benztropine mesylate 0.5 mg oral tablet (20 sources) Anticholinergic, Antihistamine Start: 08-15-20 take 1 tablet by mouth twice daily benztropine (COGENTIN) 0.5 mg tablet Take 0.5 mg by mouth two times a day. 08/15/2023 Active betamethasone 0.5 mg/ml / clotrimazole 10 mg/ml topical cream (3 sources) Azole Antifungal, Corticosteroid Start: 09-19-20 End: 10-03-20 clotrimazole-betame thasone (LOTRISONE) cream Apply to affected area two times a day for 14 days. 15 g 0 09/19/2023 10/03/2023 Active Start: 08-29-2023 End: 09-05-2023 clotrimazole-betamethasone ( LOTRISONE) cream Indications: Itching in the vaginal area Apply 1 application to affected area two times a day for 7 days. 15 g 0 08/29/2023 09/05/2023 Active Comment on above: Apply 1 application to affected area two times a day for 7 days. Apply to affected ar ea two times a day for 14 days. Blood Pressure Monitor (20 sources) Start: 09-21-2020 Blood Pressure Monitor 1 Each twice daily. 1 Kit 09/21/2020 Active Start: 09-21-2020 Blood Pressure Monitor 1 Each twice daily. 1 Kit 0 09/21/2020 Active Comment on above: 1 Each twice daily. Blood-Glucose Meter (FREESTYLE LITE METER) monitoring kit (20 sources) Start: 03-19-2024 Blood-Glucose Meter (FREESTYLE LITE METER) monitoring kit Indications: Uncontrolled type 2 diabetes mellitus with hyperglycemia (HCC) Used three times daily to check blood sugar. 250.00 1 Each 03/19/2024 Active Start: 03-19-2024 Blood-Glucose Meter (FREESTYLE LITE METER) monitoring kit Indications: Uncontrolled type 2 diabetes mellitus with hyperglycemia (HCC) Used three times daily to check blood sugar. 250.00 1 Each 0 03/19/2024 Active Start: 11-29-2013 End: 03-19-2024 Blood-Glucose Meter (FREESTY LE LITE METER) monitoring kit Indications: Type II or unspecified type diabetes mellitus without mention of complication, not stated as uncontrolled Used once daily to check blood sugar. 250.00 1 Each 0 11/29/2013 03/19/2024 Discontinued Start: 11-29-2013 Blood-Glucose Meter (FREESTYLE LITE METER) monitoring kit Indications: Type II or unspecified type diabetes mellitus without mention of complication, not stated as uncontrolled Used once daily to check blood sugar. 250.00 1 Each 0 11/29/2013 Active Comment on above: Used once daily to c heck blood sugar. 250.00 cefuroxime 500 mg oral tablet (1 source) Cephalosporin Antibacterial Start: 02-16-20 25 take 1 tablet by mouth twice daily cefUROXime (CEFTIN) 500 mg tablet Take 500 mg by mouth two times a day. 02/15/2025 Active cephalexin 500 mg oral capsule (1 source) Cephalosporin Antibacterial Start: 08-08-20 22 End: 08-13-20 22 take 1 capsule by mouth four times daily cephALEXin (KEFLEX) 500 mg capsule Take 1 capsule by mouth four times daily for 5 days. 20 capsule 0 08/08/2022 08/13/2022 Active Comment on above: Take 1 capsule by mo [facility] four times daily for 5 days. cholecalciferol 0.025 mg oral capsule (20 sources) Vitamin D Start: 10-17-19 18 End: 07-09-20 24 take 1 capsule by mouth once daily Cholecalciferol, Vitamin D3, 25 mcg (1,000 unit) cap Take 1 capsule by mouth once daily. 30 capsule 11 07/09/2024 Active Comment on above: Take 1 capsule by mo [facility] once daily. clonazePAM 0.5 mg oral tablet (20 sources) Benzodiazepine Start: 06-05-20 take 2 tablets by mouth twice daily Clonazepam 0.5 mg Tablet Active 1 mg PO TWICE A DAY June 05, 2022 12:00am Start: 06-05-2022 take 1 mg by mouth twice daily Clonazepam Active 1 MG PO TWICE A DAY June 05, 2022 12:00am Start: 06-05-2022 take 0.5 mg by mouth three times daily Clonazepam Active 0.5 MG PO THREE TIMES A DAY June 05, 2022 12:00am Start: 11-15-2019 End: 11-23-2019 take 1 tablet by mouth three times daily at mealtime Clonazepam 0.5 MG tablet Discontinued 0.5 mg PO 3 TIMES DAILY WITH MEALS November 16, 2019 1:47pm November 23, 2019 8:34pm Start: 07-22-2018 End: 11-15-2019 Clonazepam 0.5 MG tablet Discontinued 1 mg PO 1200 July 22, 2018 12:39pm November 15, 2019 11:13am Start: 07-22-2018 End: 11-15-2019 Clonazepam Discontinued 1 MG PO 1200 July 22, 2018 12:39pm November 15, 2019 11:13am Start: 07-22-2018 End: 11-15-2019 take 0.5 mg by mouth three times daily Clonazepam 1 MG tablet Discontinued 0.5 mg PO THREE TIMES A DAY 0 November 15, 2019 11:07am November 15, 2019 11:14am Start: 07-22-2018 End: 11-15-2019 take 0.5 mg by mouth three times daily Clonazepam Discontinued 0.5 MG PO THREE TIMES A DAY 0 November 15, 2019 11:07am November 15, 2019 11:14am Start: 10-17-2017 End: 07-22-2018 Clonazepam 0.5 MG tablet Discontinued 0.5 mg PO 1200 as needed for Anxiety October 20, 2017 2:34pm July 22, 2018 12:39pm Start: 10-17-2017 End: 07-22-2018 take 1 tablet by mouth at bedtime as needed for anxiety Clonazepam 1 MG tablet Discontinued 1 mg PO AT BEDTIME as needed for Anxiety October 20, 2017 2:34pm July 22, 2018 12:39pm End: 06-29-2021 take 1 tablet by mouth once daily in the morning as needed, then take 1 tablet by mouth once daily as needed clonazePAM (KLONOPIN) 0.5 mg tablet Take 0.5 mg by mouth every morning. Can take an additional 0.5mg daily as needed 06/29/2021 Discontinued (Course of therapy completed) Comment on above: Take 0.5 mg by mouth three times daily as needed. cloZAPine 100 mg oral tablet (20 sources) Atypical Antipsychotic Start: 07-30-2021 take 25 mg by mouth once daily Clozapine Active 25 MG PO DAILY@0800 July 30, 2021 6:14pm Start: 07-30-2021 take 500 mg by mouth at bedtim e Clozapine Active 500 MG PO AT BEDTIME July 30, 2021 6:14pm Start: 07-30-2021 take 300 mg by mouth at bedtim e Clozapine Active 300 MG PO AT BEDTIME July 30, 2021 6:14pm Start: 11-15-2019 End: 07-30-2021 take 150 mg by mouth at bedtime Clozapine Discontinued 150 MG PO AT BEDTIME 0 November 15, 2019 11:07am July 30, 2021 6:16pm Start: 12-23-2014 End: 07-30-2021 take 1 tablet by mouth at dinner Clozapine 100 MG tablet Discontinued 150 mg PO WITH DINNER 0 November 15, 2019 11:07am July 30, 2021 6:16pm Start: 12-23-2014 End: 07-30-2021 take 1 tablet by mouth four times daily Clozapine 100 MG tablet Active 100 mg PO 4 TIMES DAILY July 30, 2021 6:14pm cloZAPine (CLOZA RIL) 100 mg tablet Take by mouth. Takes 25mg in the morning and 500mg at bedtime Active take 3 tablets by mo uth at bedtime cloZAPine (CLOZARIL) 100 mg tablet Take 100 mg by mouth. Takes 1 tablet every morning and 3 tablets at bedtime 0 Active Comment on above: Take 100 mg by mouth . Takes 1 tablet every morning and 3 tablets at bedtime Take by mouth. Takes 25mg in the morning and 500mg at bedtime Comp Stocking,Knee,Regular, Med misc (20 sources) Start: 07-29-2024 Comp Stocking,Knee,Regular,Me d misc Indications: Acute diastolic CHF (congestive heart failure) (HCC) Patient to be measured for correct size. 20-30 mmHg Dx: I50.31 1 Each 07/29/2024 Active Start: 04-29-2023 End: 07-29-2024 Comp Stocking,Knee,Regular,M ed misc Indications: Acute diastolic CHF (congestive heart failure) (HCC) Patient to be measured for correct size. 20-30 mmHg Dx: I50.31 1 Each 04/29/2023 07/29/2024 Discontinued Start: 04-29-2023 Comp Stocking, Knee,Regular,Med misc Indications: Acute diastolic CHF (congestive heart failure) (HCC) Patient to be measured for correct size. 20-30 mmHg Dx: I50.31 1 Each 04/29/2023 Active Start: 04-29-2023 Comp Stocking, Knee,Regular,Med misc Indications: Acute diastolic CHF (congestive heart failure) (HCC) Patient to be measured for correct size. 20-30 mmHg Dx: I50.31 1 Each 0 04/29/2023 Active Start: 01-29-2019 End: 04-29-2023 Comp Stocking,Knee,Regular,M ed misc Indications: Acute diastolic CHF (congestive heart failure) (HCC) Patient to be measured for correct size. 20-30 mmHg Dx: I50.31 1 Each 01/29/2019 04/29/2023 Discontinued Start: 01-29-2019 End: 04-29-2023 Comp Stocking,Knee,Regular,M ed misc Indications: Acute diastolic CHF (congestive heart failure) (HCC) Patient to be measured for correct size. 20-30 mmHg Dx: I50.31 1 Each 0 01/29/2019 04/29/2023 Discontinued Start: 01-29-2019 Comp Stocking, Knee,Regular,Med misc Indications: Acute diastolic CHF (congestive heart failure) (HCC) Patient to be measured for correct size. 20-30 mmHg Dx: I50.31 1 Each 0 01/29/2019 Active Comment on above: Patient to be measur ed for correct size. 20-30 mmHg Dx: I50.31 24 hr desvenlafaxine succinate 50 mg extended release oral tablet (20 sources) Serotonin and Norepinephrine Reuptake Inhibitor Start: 021 End: 023 take 50 mg by mouth once daily Desvenlafaxine Succinate Active 50 MG PO DAILY July 30, 2021 12:00am Comment on above: Take 50 mg by mouth once daily. docusate sodium 100 mg oral capsule (20 sources) Start: 024 End: take 1 capsule by mouth twice daily docusate sodium (COLACE) 100 mg capsule Indications: Acute constipation Take 1 capsule by mouth two times a day. 60 capsule 5 11/25/2024 Active Comment on above: Take 1 capsule by mo [facility] two times a day. doxycycline hyclate 100 mg oral tablet (20 sources) Tetracycline-class Drug Start: take 5 tablets by mouth once daily Doxycycline Hyclate 100 mg tablet Active 100 mg PO TWICE A DAY 14 November 12, 2024 11:36am Continue doxycycline for a total of 5 more days Start: 11-12-2024 Doxycycline Mo nohydrate 100 mg tablet Active 100 mg PO TWICE A DAY November 12, 2024 1:00am 1 twice a day for 11 doses beginning 11/12/2024 then discontinue Start: 08-16-2023 End: 11-12-2024 take 1 tablet by mouth twice daily Doxycycline Hyclate 100 mg tablet Discontinued 100 mg PO TWICE A DAY 14 August 16, 2023 12:00am November 12, 2024 11:36am Start: 11-15-2019 End: 11-23-2019 take 1 capsule by mouth twice daily Doxycycline Monohydrate 100 MG capsule Discontinued 100 mg PO TWICE A DAY November 16, 2019 1:47pm November 23, 2019 8:33pm empagliflozin 10 mg oral tablet (20 sources) Sodium-Glucose Cotransporter 2 Inhibitor Start: 07-30-2021 End: 10-04-2024 take 1 tablet by mouth once daily at breakfast empagliflozin (JARDIANCE) 10 mg tablet Take 1 tablet by mouth daily with breakfast. 30 tablet 11 10/04/2024 Active Start: 03-26-2021 End: 07-24-2021 take 1 tablet by mouth once daily at breakfast empagliflozin (JARDIANCE) 10 mg tablet Take 1 tablet by mouth daily with breakfast. 30 tablet 3 03/26/2021 07/24/2021 Discontinued Start: 08-31-2020 End: 12-01-2020 take 1 tablet by mouth once daily at breakfast empagliflozin (JARDIANCE) 10 mg tablet Take 1 tablet by mouth daily with breakfast. 30 tablet 3 08/31/2020 12/01/2020 Discontinued Comment on above: Take 1 tablet by rosemary th daily with breakfast. ferrous sulfate 325 mg oral tablet (20 sources) Start: 03-26-2023 End: 01-25-2025 take 1 tablet by mouth twice daily at mealtime ferrous sulfate 325 mg (65 mg iron) tablet Take 1 tablet by mouth two times a day with meals. 120 tablet 5 01/25/2025 Active Start: 06-05-2022 take 1 tablet by rosemary th twice daily at mealtime Ferrous Sulfate (Feosol) 325 mg (65 mg iron) Tablet Active 325 mg PO .BID with meals June 05, 2022 12:00am Start: 05-08-2022 take 1 tablet by rosemary th twice daily at mealtime ferrous sulfate 325 mg (65 mg iron) tablet Take 1 tablet by mouth twice daily with meals. 120 tablet 5 05/08/2022 Active Comment on above: Take 1 tablet by rosemary th twice daily with meals. 30 actuat fluticasone furoate 0.1 mg/actuat / vilanterol 0.025 mg/actuat dry powder inhaler (20 sources) Corticosteroid, beta2-Adrenergic Agonist Start: 11-09-2024 Fluticasone Furoate-Vilanterol (Breo Ellipta) 100-25 mcg/dose blister with device Active INHALATION DAILY November 09, 2024 1:00am Start: 07-30-2021 Fluticasone Fu roate-Vilanterol (Breo Ellipta) 100-25 mcg/dose blister with device Active 1 INH INHALATION DAILY July 30, 2021 12:00am Start: 06-25-2019 take 1 dose by inhalation once fluticasone-vilanterol (BREO ELLIPTA) 100-25 mcg/dose inhaler Indications: Chronic obstructive pulmonary disease, unspecified COPD type (HCC) Inhale 1 Inhalation as instructed once daily. Per Dr. Ramirez 1 Each 5 06/25/2019 Active Comment on above: Inhale 1 Inhalation as instructed once daily. Per Dr. Ramirez furosemide 20 mg oral tablet (20 sources) Loop Diuretic Start: 01-05-2020 End: 08-06-2024 take 1 tablet by mouth once daily furosemide (LASIX) 20 mg tablet Take 1 tablet by mouth once daily. 90 tablet 3 08/06/2024 Active Start: 11-15-2019 End: 11-16-2019 take 1 tablet by mouth once daily Furosemide 40 MG tablet Discontinued 40 mg PO DAILY November 15, 2019 1:00am November 16, 2019 1:48pm Start: 07-22-2018 End: 11-15-2019 take 1 tablet by mouth once daily Furosemide 20 MG tablet Discontinued 20 mg PO DAILY July 22, 2018 12:00am November 15, 2019 11:08am Comment on above: Take 1 tablet by rosemary once daily. gabapentin 100 mg oral capsule (20 sources) Anti-epileptic Agent Start: 11-09-2024 End: 03-20-2025 gabapentin (NEURONTIN) 100 mg capsule Indications: Leg pain, bilateral Take two capsules three times daily. 180 capsule 1 02/18/2025 03/20/2025 Active Start: 09-08-2024 End: 12-02-2024 Gabapentin 100 mg capsule Ac tive mg 3 times daily November 09, 2024 1:00am glipiZIDE 5 mg oral tablet (20 sources) Sulfonylurea Start: 06-05-2022 take 5 mg by mouth once daily Glipizide Active 5 MG PO DAILY June 05, 2022 12:00am Start: 03-28-2014 End: 04-29-2023 take 1 tablet by mouth twice daily glipiZIDE (GLUCOTROL) 5 mg tablet Take 1 tablet by mouth twice daily. 60 tablet 10/10/2020 11/06/2020 Discontinued Comment on above: Take 1 tablet by rosemary twice daily. 12 hr guaiFENesin 600 mg extended release oral tablet (20 sources) Start: 11-10-2024 take 2 tablets by mouth once guaiFENesin (MUCINEX) 600 mg 12 hr tablet Take 2 tablets by mouth once daily. Per Dr. Ramirez 11/10/2024 Active Start: 11-09-2024 take 1 mg by mouth e very twelve hours Guaifenesin (Mucus Relief Er) 600 mg tablet extended release 12hr Active mg PO November 09, 2024 1:00am Start: 08-16-2023 End: 11-12-2024 take 1 tablet by mouth twice daily, then take 1 tablet by mouth every twelve hours Guaifenesin (Mucus Relief Er) 1,200 mg tablet extended release 12hr Discontinued 1200 mg PO TWICE A DAY August 16, 2023 12:00am November 12, 2024 11:34am Start: 08-14-2023 take 1 tablet by rosemary once daily, then take 1 tablet by mouth every twelve hours Guaifenesin (Mucus Relief Er) 1,200 mg tablet extended release 12hr Active 1200 mg PO DAILY August 14, 2023 12:00am Start: 10-18-2020 End: 11-09-2024 take 2 tablets by mouth twice daily guaiFENesin (MUCINEX) 600 mg 12 hr tablet Take 2 tablets by mouth two times a day. 40 tablet 11/09/2024 Active Comment on above: Take 2 tablets by mo [facility] twice daily. Take 2 tablets by mo [facility] two times a day. haloperidol 2 mg oral tablet (20 sources) Typical Antipsychotic Start: 08-14-20 haloperidol (HALDOL) 2 mg tablet Take by mouth. 08/14/2023 Active hypromellose 0.003 mg/mg ophthalmic gel (20 sources) Start: 11-05-19 24 apply 1 drop(s) into the eye(s) once daily at bedtime Artificial Tear, Hypromellose, (SYSTANE GEL) 0.3 % gel Use 1 Drop in both eyes daily at bedtime. 10 mL 5 11/05/2023 Active Start: 08-28-2022 apply 1 drop(s) into the eye(s) once daily at bedtime Artificial Tear, Hypromellose, (SYSTANE GEL) 0.3 % gel Use 1 Drop in both eyes daily at bedtime. 10 mL 5 08/28/2022 Active Start: 08-28-2022 apply 1 drop(s) into the eye(s) once daily at bedtime Artificial Tear, Hypromellose, (SYSTANE GEL) 0.3 % gel Use 1 Drop in both eyes daily at bedtime. 10 mL 5 08/28/2022 Active Comment on above: Use 1 Drop in both e yes daily at bedtime. 3 ml insulin glargine 100 unt/ml pen injector (20 sources) Insulin Analog Start: 03-19-2024 End: 08-31-2025 insulin glargine (LANTUS SOLOSTAR U-100 INSULIN) 100 unit/mL (3 mL) Indications: Uncontrolled type 2 diabetes mellitus with hyperglycemia (HCC) Inject 60 Units subcutaneously daily at bedtime. 54 mL 3 08/31/2024 08/31/2025 Active Start: 02-04-2024 End: 02-03-2025 insulin glargine (BASAGLAR K JULIO CESARKPEN U-100 INSULIN) 100 unit/mL (3 mL) Indications: diabetes mellitus Inject 58 Units subcutaneously daily at bedtime. 17.4 mL 11 02/04/2024 03/19/2024 Discontinued Start: 08-28-2023 End: 02-04-2024 insulin glargine (LANTUS MIRNA OSTAR U-100 INSULIN) 100 unit/mL (3 mL) Indications: Type 2 diabetes mellitus with diabetic nephropathy, with long-term current use of insulin ([facility]) Give 48 units subq daily at 4 PM or as directed 5 Each 08/28/2023 02/04/2024 Discontinued Start: 08-14-2022 End: 08-28-2023 insulin glargine (LANTUS MIRNA OSTAR U-100 INSULIN) 100 unit/mL (3 mL) Indications: Type 2 diabetes mellitus with diabetic nephropathy, with long-term current use of insulin ([facility]) Give 48 units subq daily at 4 PM or as directed 5 Each 08/28/2023 Active Start: 08-14-2022 insulin glargi ne (LANTUS SOLOSTAR U-100 INSULIN) 100 unit/mL (3 mL) Indications: Type 2 diabetes mellitus with diabetic nephropathy, with long-term current use of insulin ([facility]) Give 48 units subq daily at 4 PM or as directed 5 Each 11 08/14/2022 Active Start: 07-30-2021 Insulin Glargi ne (Lantus Solostar U-100 Insulin) 100 unit/mL (3 mL) insulin pen Active 48 U SC DAILY@1599July 30, 2021 12:00am Start: 07-30-2021 Insulin Glargi ne (Lantus Solostar U-100 Insulin) 100 unit/mL (3 mL) insulin pen Active 40 UNIT SC DAILY@1599July 30, 2021 12:00am Start: 08-02-2020 End: 08-09-2021 insulin glargine (LANTUS MIRNA OSTAR U-100 INSULIN) 100 unit/mL (3 mL) Give 48 units subq daily at 4 PM or as directed 5 Pen 11 08/02/2020 08/09/2021 Discontinued Start: 11-23-2019 End: 07-30-2021 inject 35 [IU] by subcutaneous injection once daily Insulin Glargine 100 UNITS/ML insulin pen Discontinued 35 U subcut DAILY@1600 November 23, 2019 1:00am July 30, 2021 4:52pm Start: 11-23-2019 End: 07-30-2021 inject 35 [IU] by subcutaneous injection once daily Insulin Glargine Discontinued 35 UNITS subcut DAILY@1600 November 23, 2019 1:00am July 30, 2021 4:52pm Start: 12-23-2014 End: 11-23-2019 Insulin Glargine (Lantus Mirna ostar U-100 Insulin) 100 UNITS/ML Pen Discontinued 42 U SC DAILY December 23, 2014 12:00am November 23, 2019 8:32pm 4pm Comment on above: Give 48 units subq d aily at 4 PM or as directed 3 ml insulin lispro 100 unt/ml pen injector (20 sources) Insulin Analog Start: 03-19-2024 End: 03-19-2024 insulin lispro (HUMALOG KWIKPEN) 100 unit/mL Indications: Uncontrolled type 2 diabetes mellitus with hyperglycemia (HCC) Sig: Administer Lispro insulin per scale AC breakfast morning, AC lunch, AC dinner as follows with glucose 150-199 2u, 200-249 3u, 250-299 5u, 300-350 8u, 350-399 11u, 400- 449 14u, 450 and above go to ER. 1 Each 5 03/19/2024 Active Start: 08-21-2023 End: 03-19-2024 insulin lispro (HUMALOG KWIK PEN) 100 unit/mL Indications: Type 2 diabetes mellitus with diabetic nephropathy, with long-term current use of insulin (HCC) Sig: Administer Lispro insulin per scale AC breakfast morning, AC lunch, AC dinner, AC bedtime as follows with glucose 150-199 2u, 200-249 3u, 250-299 5u, 300-350 8u, 350-399 11u, 400- 449 14u, 450 and above go to ER. Total per day 64u 1 Each 5 03/05/2024 03/19/2024 Discontinued Comment on above: Sig: Administer Lisp ro insulin per scale AC breakfast morning, AC lunch, AC dinner, AC bedtime as follows with glucose 150-199 2u, 200-249 3u, 250-299 5u, 300-350 8u, 350-399 11u, 400- 449 14u, 450 and above go to ER. Total per day 64u Lancing Device misc (1 source) Start: 4 End: 4 Lancing Device misc Use with blood glucose test four times a day. Insulin Dep? Yes 120 Each 5 08/20/2024 08/21/2024 Active menthol 5.8 mg oral lozenge (20 sources) Start: Menthol (COUGH DROPS) 5.8 mg Use 1 Lozenge as instructed every 2 hours as needed. Sugar-Free 80 Lozenge 1 08/16/2024 Active 24 hr metFORMIN hydrochloride 500 mg extended release oral tablet (20 sources) Biguanide Start: 3 End: take 2 tablets by mouth twice daily before mealtime metFORMIN ER (GLUCOPHAGE XR) 500 mg 24 hr tablet Take 2 tablets by mouth two times a day before meals. 360 tablet 3 01/25/2025 Active Start: 03-26-2023 End: 02-24-2024 take 2 tablets by mouth twice daily before mealtime metFORMIN ER (GLUCOPHAGE XR) 500 mg 24 hr tablet Take 2 tablets by mouth two times a day before meals. 360 tablet 3 02/24/2024 Active Start: 06-05-2022 End: 08-14-2023 take 1 tablet by mouth twice daily Metformin 500 mg Tablet Discontinued 500 mg PO TWICE A DAY June 05, 2022 12:00am August 14, 2023 10:26pm Start: 07-30-2021 take 1000 mg by mout h twice daily Metformin Active 1000 MG PO TWICE A DAY July 30, 2021 12:00am Start: 09-20-2020 End: 05-08-2022 take 2 tablets by mouth twice daily before mealtime metFORMIN ER (GLUCOPHAGE XR) 500 mg 24 hr tablet Take 2 tablets by mouth twice daily before meals. 360 tablet 3 05/08/2022 Active Comment on above: Take 2 tablets by mo uth twice daily before meals. methylPREDNISolone (1 source) Corticosteroid Start: 2023 End: 2023 methylPREDNISolone (MEDROL, PRASHANT,) 4 mg Dose-Pack Indications: LIDA (obstructive sleep apnea) Follow dosing instructions, take with food. 21 tablet 08/24/2024 08/30/2024 Active 24 hr metoprolol succinate 25 mg extended release oral tablet (20 sources) beta-Adrenergic Harika Start: 2020 End: 2023 take 1 tablet by mouth once daily in the evening metoprolol succinate ER (TOPROL XL) 25 mg 24 hr tablet take 1 tablet by mouth every evening 30 tablet 11 06/16/2024 Active Start: 07-30-2021 take 1 tablet by rosemary th every twenty-four hours at bedtime Metoprolol Succinate 25 mg Tablet Extended Release 24 Hr Active 25 mg PO AT BEDTIME July 30, 2021 12:00am Start: 05-21-2021 End: 09-12-2021 take 1 tablet by mouth once daily in the evening metoprolol succinate ER (TOPROL XL) 25 mg 24 hr tablet Take 1 tablet by mouth once daily. Take the whole tab in the evening 30 tablet 3 05/21/2021 09/12/2021 Discontinued Start: 08-28-2020 End: 03-27-2021 take 1 tablet by mouth once daily metoprolol succinate ER (TOPROL XL) 25 mg 24 hr tablet Take 1 tablet by mouth once daily. 30 tablet 5 08/28/2020 03/27/2021 Discontinued End: 03-02-2024 take 12.5 mg by mouth twice daily METOPROLOL SUCCINATE ORAL Take 12.5 mg by mouth twice daily. 03/02/2024 Discontinued (Duplicate Entry) End: 03-02-2024 take 12.5 mg by mouth twice daily METOPROLOL SUCCINATE ORAL Take 12.5 mg by mouth twice daily. 0 03/02/2024 Discontinued (Duplicate Entry) take 12.5 mg by mouth twice ziggy y METOPROLOL SUCCINATE ORAL Take 12.5 mg by mouth twice daily. 0 Active Comment on above: Take 12.5 mg by mout h twice daily. TAKE 1 TABLET BY ROSEMARY TH EVERY EVENING metroNIDAZOLE 0.01 mg/mg topical gel (20 sources) Nitroimidazole Antimicrobial Start: 05-03-2024 End: 01-03-2025 metroNIDAZOLE (METROGEL) 0.75 % Topical Gel Apply to affected area two times a day. 45 g 5 01/03/2025 Active Start: 08-28-2022 End: 05-03-2024 metroNIDAZOLE (METROGEL) 1 % Topical Gel Apply 1 application to affected area once daily. Location: face 60 g 5 05/03/2024 Active Comment on above: Apply 1 application to affected area once daily. Location: face mupirocin 0.02 mg/mg topical ointment (3 sources) RNA Synthetase Inhibitor Antibacterial Start: End: mupirocin (BACTROBAN) 2 % ointment Apply to affected area three times a day for 7 days. 22 g 0 04/14/2024 04/21/2024 Active nabumetone 500 mg oral tablet (20 sources) Nonsteroidal Anti-inflammatory Drug Start: take 1 tablet by mouth twice daily at mealtime nabumetone (RELAFEN) 500 mg tablet Take 1 tablet by mouth two times a day. TAKE WITH FOOD 60 tablet 11/09/2024 Active Start: 03-02-2024 End: 11-09-2024 take 1 tablet by mouth once daily at mealtime nabumetone (RELAFEN) 500 mg tablet Take 1 tablet by mouth once daily. TAKE WITH FOOD 30 tablet 10/04/2024 11/09/2024 Discontinued omega-3 fatty acids (FISH OIL CONCENTRATE) 1,000 mg cap (20 sources) Start: 07-09-2024 End: 07-04-2025 take 1 capsule by mouth once daily omega-3 fatty acids (FISH OIL CONCENTRATE) 1,000 mg cap Indications: Hyperlipidemia, unspecified hyperlipidemia type Take 1 capsule by mouth once daily. 30 capsule 11 07/09/2024 07/04/2025 Active Start: 08-12-2023 End: 07-09-2024 take 1 capsule by mouth once daily omega-3 fatty acids (FISH OIL CONCENTRATE) 1,000 mg cap Indications: Hyperlipidemia, unspecified hyperlipidemia type Take 1 capsule by mouth once daily. 30 capsule 11 08/12/2023 07/09/2024 Discontinued Start: 08-12-2023 End: 08-06-2024 take 1 capsule by mouth once daily omega-3 fatty acids (FISH OIL CONCENTRATE) 1,000 mg cap Indications: Hyperlipidemia, unspecified hyperlipidemia type Take 1 capsule by mouth once daily. 30 capsule 11 08/12/2023 08/06/2024 Active Start: 09-11-2022 End: 08-12-2023 take 1 capsule by mouth once daily omega-3 fatty acids (FISH OIL CONCENTRATE) 1,000 mg cap Indications: Hyperlipidemia, unspecified hyperlipidemia type Take 1 capsule by mouth once daily. 30 capsule 11 09/11/2022 08/12/2023 Discontinued Start: 09-11-2022 take 1 capsule by mo uth once daily omega-3 fatty acids (FISH OIL CONCENTRATE) 1,000 mg cap Indications: Hyperlipidemia, unspecified hyperlipidemia type Take 1 capsule by mouth once daily. 30 capsule 11 09/11/2022 Active Start: 09-11-2022 End: 10-11-2022 take 1 capsule by mouth once daily omega-3 fatty acids (FISH OIL CONCENTRATE) 1,000 mg cap Indications: Hyperlipidemia, unspecified hyperlipidemia type Take 1 capsule by mouth once daily. 30 capsule 11 09/11/2022 10/11/2022 Active Start: 10-09-2021 End: 09-11-2022 take 1 capsule by mouth once daily omega-3 fatty acids (FISH OIL CONCENTRATE) 1,000 mg cap Indications: Hyperlipidemia, unspecified hyperlipidemia type Take 1 capsule by mouth once daily. 30 capsule 11 10/09/2021 09/11/2022 Discontinued Start: 10-09-2021 take 1 capsule by mo uth once daily omega-3 fatty acids (FISH OIL CONCENTRATE) 1,000 mg cap Indications: Hyperlipidemia, unspecified hyperlipidemia type Take 1 capsule by mouth once daily. 30 capsule 11 10/09/2021 Active Start: 11-14-2020 End: 10-09-2021 take 1 capsule by mouth once daily omega-3 fatty acids (FISH OIL CONCENTRATE) 1,000 mg cap Indications: Hyperlipidemia, unspecified hyperlipidemia type Take 1 capsule by mouth once daily. 30 capsule 11 11/14/2020 10/09/2021 Discontinued Start: 07-27-2018 End: 11-14-2020 take 1 capsule by mouth once daily omega-3 fatty acids (FISH OIL CONCENTRATE) 1,000 mg cap Indications: Hyperlipidemia, unspecified hyperlipidemia type Take 1 capsule by mouth once daily. 07/27/2018 11/14/2020 Discontinued Comment on above: Take 1 capsule by mo uth once daily. [employer]-3 Fatty Acids-Fish Oil (Fish Oil) 1 EACH capsule (6 sources) Start: 10-17-2017 [employer] Fatty Acids-Fish Oil (Fish Oil) 1 EACH capsule Active 1 EACH PO DAILY October 17, 2017 3:27pm Start: 10-17-2017 [employer] Fatty Acids-Fish Oil (Fish Oil) 1 EACH capsule Active 1 EACH PO DAILY October 17, 2017 1:00am [employer] Fatty Acids-Fish Oil 300-1,000 mg capsule (2 sources) Start: 11-09-2024 [employer] Fatty Acids-Fish Oil 300-1,000 mg capsule Active NMA November 09, 2024 1:00am omeprazole 20 mg delayed release oral capsule (20 sources) Proton Pump Inhibitor Start: 10-31-2019 End: 10-29-2024 take 1 capsule by mouth once daily before breakfast omeprazole (PRILOSEC) 20 mg capsule Indications: GERD without esophagitis , Epigastric pain Take 1 capsule by mouth daily before breakfast. 1/2 hr before meal. 30 capsule 5 10/29/2024 Active Comment on above: Take 1 capsule by mo [facility] daily before breakfast. 1/2 hr before meal. ondansetron 4 mg disintegrating oral tablet (9 sources) Serotonin-3 Receptor Antagonist Start: 12-21-2024 take 1 tablet by mouth every six hours as needed for nausea and vomiting Ondansetron 4 mg tablet,disintegra ting Active 4 mg PO EVERY 6 HOURS as needed for nausea and vomiting December 21, 2024 12:00am Start: 12-13-2023 [facility] for nausea Ondansetron 4 mg tablet,disintegrating Active 4 mg PO EVERY 8 HOURS NEEDED as needed for Nausea October 14, 2024 1:00am 1.5 ml paliperidone palmitate 156 mg/ml prefilled syringe (20 sources) Atypical Antipsychotic Start: 02-09-2025 inject 234 mg by intramuscular injection every month INVEGA SUSTENNA 234 mg/1.5 mL syrg injection Inject 234 mg intramuscularly once every month. 02/09/2025 Active Start: 11-09-2024 Paliperidone P almitate (Invega Sustenna) 234 mg/1.5 mL syringe Active mg IM November 09, 2024 1:00am Start: 07-01-2022 INVEGA SUSTENN A 156 mg/mL syrg injection 07/01/2022 Active polyethylene glycol 3350 81806 mg powder for oral solution (20 sources) Osmotic Laxative Start: 03-26-2023 End: 04-16-2024 polyethylene glycol 3350 (MIRALAX) 17 gram packet Take 1 Packet by mouth once daily. Dissolve dose in 4 - 8 ounces of liquid and take as directed. 28 Packet 11 04/16/2024 Active Start: 05-08-2022 polyethylene g lycol 3350 (MIRALAX) 17 gram packet Take 1 Packet by mouth once daily. Dissolve dose in 4 - 8 ounces of liquid and take as directed. 28 Packet 11 05/08/2022 Active Start: 09-26-2021 End: 04-29-2023 polyethylene glycol 3350 (IL RALAX) 17 gram/dose powder Indications: Chronic constipation Take 17 .5 tsps as needed for constipation. 235 g 6 01/11/2022 04/29/2023 Discontinued (Duplicate Entry) Start: 08-24-2021 End: 02-20-2022 polyethylene glycol 3350 (IL RALAX, GLYCOLAX) 17 gram packet Take 1 Packet by mouth once daily. Dissolve dose in 4 - 8 ounces of liquid and take as directed. 30 Packet 5 08/24/2021 02/20/2022 Active Comment on above: Take 1 Packet by rosemary once daily. Dissolve dose in 4 - 8 ounces of liquid and take as directed. Take 17 .5 tsps as needed for constipation. polyethylene glycol 3350 988608 mg / potassium chloride 2970 mg / sodium bicarbonate 6740 mg / sodium chloride 5860 mg / sodium sulfate 41666 mg powder for oral solution (5 sources) Osmotic Laxative Start: 12-13-2023 Peg 3350-Electrolytes (Golytely) 236-22.74-6.74 -5.86 gram recon soln Active 240 mL PO EVERY 10 MINUTES NEEDED 3999December 13, 2023 1:00am until fecal effluent is clear Start: 12-13-2023 Peg 3350-Elect rolytes (Golytely) 236-22.74-6.74 -5.86 gram recon soln Active 240 ML PO EVERY 10 MINUTES NEEDED 3999December 13, 2023 1:00am until fecal effluent is clear polymyxin b 52125 unt/ml / trimethoprim 1 mg/ml ophthalmic solution (3 sources) Dihydrofolate Reductase Inhibitor Antibacterial, Polymyxin-class Antibacterial Start: 08-08-2022 End: 08-15-2022 take 1 drop(s) into the eye(s) every four hours trimethoprim-polymyxin (POLYTRIM) 10,000 unit- 1 mg/mL ophthalmic solution Use 1 Drop in the left eye every 4 hours for 7 days. 10 mL 0 08/08/2022 08/15/2022 Active Comment on above: Use 1 Drop in the le ft eye every 4 hours for 7 days. microencapsulated potassium chloride 20 meq extended release oral tablet (20 sources) Start: 10-16-2017 End: 12-30-2024 take 1 tablet by mouth once daily potassium chloride ER (KLOR-CON) 20 mEq tablet Take 1 tablet by mouth once daily. 30 tablet 5 12/30/2024 Active Comment on above: Take 1 tablet by rosemary th once daily. pramipexole dihydrochloride 0.5 mg oral tablet (20 sources) Nonergot Dopamine Agonist Start: 06-05-2022 Pramipexole Active 0.25 MG PO AT BEDTIME June 05, 2022 12:00am Take half table PO at bedtime Start: 06-29-2021 End: 04-16-2024 take 0.5 tablet by mouth once daily at bedtime pramipexole (MIRAPEX) 0.5 mg tablet Indications: Restless leg syndrome Take 0.5 tablets by mouth daily at bedtime. 30 tablet 5 04/16/2024 Active Start: 09-12-2020 End: 02-28-2021 take 1 tablet by mouth once daily at bedtime pramipexole (MIRAPEX) 0.5 mg tablet Indications: Restless leg syndrome Take 1 tablet by mouth daily at bedtime. 30 tablet 5 09/12/2020 02/28/2021 Discontinued Start: 10-31-2019 take 0.25 mg by mout h at bedtime Pramipexole Active 0.25 MG PO AT BEDTIME October 31, 2019 1:00am Comment on above: Take 0.5 tablets by mouth daily at bedtime. pravastatin sodium 20 mg oral tablet (20 sources) HMG-CoA Reductase Inhibitor Start: 06-29-2021 End: 04-29-2023 take 1 tablet by mouth once daily Pravastatin (Pravachol) 20 mg Tablet Active 20 MG PO DAILY June 05, 2022 12:00am Start: 08-14-2020 End: 12-05-2020 take 1 tablet by mouth once daily pravastatin (PRAVACHOL) 20 mg tablet Take 1 tablet by mouth once daily. 28 tablet 3 08/14/2020 12/05/2020 Discontinued Comment on above: Take 1 tablet by rosemary once daily. HOLD 06/29/21 for 4 weeks due to leg aches and cramps predniSONE 50 mg oral tablet (20 sources) Start: 12-21-2024 take 1 tablet by mouth once daily Prednisone 50 mg tablet Active 50 mg PO DAILY 4 December 21, 2024 12:00am Start: 11-12-2024 Prednisone 20 mg tablet Active 40 mg PO DAILY November 12, 2024 1:00am 2 tablets once a day for 7 days then discontinue Start: 08-16-2023 End: 11-12-2024 Prednisone 20 mg tablet Acti ve 20 mg PO TWICE A DAY November 12, 2024 11:36am Continue this prescription until it runs out then discontinue Start: 10-18-2020 End: 10-23-2020 take 2 tablets by mouth once daily predniSONE (DELTASONE) 20 mg tablet Take 2 tablets by mouth once daily for 5 days. 10 tablet 10/18/2020 10/23/2020 Start: 11-02-2019 End: 11-09-2019 Prednisone 10 MG tablet Disc ontinued 0 mg PO DAILY November 02, 2019 1:00am November 09, 2019 10:59am Please contact the information source for Taper Schedule details. Start: 11-02-2019 End: 11-23-2019 take 4 tablets by mouth once daily, then take 3 tablets by mouth once daily, then take 2 tablets by mouth once daily, then take 1 tablet by mouth once daily Prednisone 10 MG tablet Discontinued 10 mg PO DIRECTED November 16, 2019 1:47pm November 23, 2019 8:33pm 4 tab PO qd x 3 days, 3 tab PO qd x 3 days, 2 tab PO qd x 3 days, 1 tab PO qd x 3 days Start: 10-14-2017 End: 10-20-2017 take 1 tablet by mouth twice daily Prednisone 20 MG tablet Discontinued 20 mg PO TWICE A DAY October 14, 2017 1:00am October 20, 2017 2:34pm Start: 07-29-2015 End: 07-29-2015 Prednisone 20 MG tablet Disc ontinued 40 mg PO DAILY@0800 July 29, 2015 12:00am July 29, 2015 2:21pm 40 mg daily for 3 days, then 20 mg daily for 3 days, then 1/2 daily for 3 days then stop Start: 07-29-2015 End: 07-29-2015 Prednisone Discontinued 40 M G PO DAILY@0800 July 29, 2015 12:00am July 29, 2015 2:21pm 40 mg daily for 3 days, then 20 mg daily for 3 days, then 1/2 daily for 3 days then stop Start: 09-11-2014 End: 09-15-2014 take 3 tablets by mouth once daily Prednisone 20 MG tablet Discontinued 60 mg PO DAILY September 11, 2014 1:00am September 15, 2014 12:31pm Start: 09-11-2014 End: 09-15-2014 take 60 mg by mouth once daily Prednisone Discontinued 60 MG PO DAILY September 11, 2014 1:00am September 15, 2014 12:31pm Psyllium (Metamucil) Packet (20 sources) Start: 07-30-2021 Psyllium ([place] mucil) Packet Active 1 PACKET PO AT BEDTIME July 30, 2021 6:01pm Start: 07-30-2021 Psyllium ([place] mucil) Packet Active 1 PACKET PO AT BEDTIME July 29, 2021 11:00pm Start: 07-30-2021 Psyllium ([place] mucil) Packet Active 1 PACKET PO AT BEDTIME July 30, 2021 12:00am risperiDONE 1 mg oral tablet (20 sources) Atypical Antipsychotic Start: 11-16-2019 take 2 mg by mouth at bedtime Risperidone Active 2 MG PO AT BEDTIME November 16, 2019 1:47pm Start: 11-15-2019 End: 11-16-2019 take 1 tablet by mouth once daily Risperidone 1 MG tab let Discontinued 1 mg PO DAILY November 15, 2019 1:00am November 16, 2019 1:48pm Start: 03-28-2014 End: 11-15-2019 take 2 mg by mouth at bedtime Risperidone (Risperdal) 3 MG tablet Discontinued 2 mg PO AT BEDTIME March 28, 2014 12:00am November 15, 2019 11:15am Start: 05-03-2011 End: 04-29-2023 inject 50 mg by intramuscular injection every other week Risperidone Microspheres (Risperdal Consta) 50 MG/2 ML Ml Discontinued 50 mg IM Q14D July 25, 2015 12:00am November 23, 2019 8:33pm End: 04-29-2023 risperiDONE orally disintegr ating (RISPERDAL M) 1 mg disintegrating tablet Take 2 mg by mouth daily at bedtime. 04/29/2023 Discontinued (Other) Comment on above: Inject 2 mL intramus cularly every 2 weeks. Take 2 mg by mouth d aily at bedtime. simethicone 80 mg chewable tablet (20 sources) Start: 3 End: take 1 tablet by mouth every six hours as needed simethicone, chewable (GAS RELIEF, SIMETHICONE,) 80 mg chewable tablet Take 1 tablet by mouth every 6 hours as needed. 100 tablet 11/22/2022 11/22/2023 Active Comment on above: Take 1 tablet by rosemary th every 6 hours as needed. sodium chloride-aloe vera (AYR SALINE GEL) nasal spray (20 sources) Start: 4 sodium chloride-aloe vera (AYR SALINE GEL) nasal spray Indications: Nasal dryness Use 1 mL in the nose two times a day. 88 mL 1 09/24/2024 Active Start: 01-13-2024 End: 09-24-2024 sodium chloride-aloe vera (A YR SALINE GEL) nasal spray Indications: Nasal dryness Use 1 mL in the nose two times a day. 88 mL 1 01/13/2024 09/24/2024 Discontinued Start: 01-13-2024 sodium chlorid e-aloe vera (AYR SALINE GEL) nasal spray Indications: Nasal dryness Use 1 mL in the nose two times a day. 88 mL 1 01/13/2024 Active Comment on above: Use 1 mL in the nose two times a day. terbinafine hydrochloride 10 mg/ml topical cream (2 sources) Allylamine Antifungal Start: End: terbinafine HCl (LAMISIL) 1 % cream Indications: Tinea cruris Apply to affected area two times a day for 14 days. To groin 28.4 g 1 08/24/2024 09/07/2024 Active traZODone hydrochloride 50 mg oral tablet (6 sources) Serotonin Reuptake Inhibitor Start: 021 take 50 mg by mouth at bedtime Trazodone Active 50 MG PO AT BEDTIME July 30, 2021 12:00am triamcinolone acetonide 0.001 mg/mg topical ointment (2 sources) Corticosteroid Start: End: triamcinolone acetonide (KENALOG) 0.1 % ointment Apply to affected area twice daily for 14 days. (cpap strap area). In the evening, use 4X4 guaze under the cpap strap until healed. 15 g 0 03/27/2022 04/10/2022 Active Comment on above: Apply to affected ar ea twice daily for 14 days. (cpap strap area). In the evening, use 4X4 guaze under the cpap strap until healed. Umeclidinium (20 sources) Anticholinergic Start: 025 take 62.5 ug by inhalation once daily Umeclidinium (Incruse Ellipta) 62.5 mcg/actuation blister with device Active INHALATION DAILY November 09, 2024 1:00am Start: 07-30-2021 take 62.5 ug by inha lation once daily Umeclidinium (Incruse Ellipta) 62.5 mcg/actuation blister with device Active 1 INH INHALATION DAILY July 30, 2021 6:01pm Start: 07-30-2021 take 62.5 ug by inha lation once daily Umeclidinium (Incruse Ellipta) 62.5 mcg/actuation blister with device Active 1 INH INHALATION DAILY July 30, 2021 12:00am Start: 10-21-2019 take 1 puff(s) by in halation once daily, then take 1 puff(s) by inhalation once daily umeclidinium (INCRUSE ELLIPTA) 62.5 mcg/actuation inhaler Inhale 1 Puff as instructed once daily. Inhale one puff once daily. DO NOT CLICK OPEN UNTIL READY FOR DOSE 1 Each 10/21/2019 Active Comment on above: Inhale 1 Puff as ins tructed once daily. Inhale one puff once daily. DO NOT CLICK OPEN UNTIL READY FOR DOSE Completed/Discontinued Medications Medication Drug Class(es) Dates Sig (Normalized) Sig (Original) albuterol 0.833 mg/ml / ipratropium bromide 0.167 mg/ml inhalation solution (3 sources) Anticholinergic, beta2-Adrenergic Agonist Start: 11-09-2024 End: 11-09-2024 ipratropium-albute rol 3 mL nebulizer solution (DUONEB) Start: 11-09-2024 End: 11-09-2024 take 1 dose by inhalation once 3 mL, INHALATION, ONCE, 1 dose, On Fri11/09/24 at 1730, PROTECT FROM LIGHT. The unit-dose vial should remain stored in the protective foil pouch until time of use. amoxicillin 875 mg / clavulanate 125 mg oral tablet (20 sources) Penicillin-class Antibacterial Start: 11-02-2019 End: 11-09-2019 take 1 tablet by mouth every twelve hours Amoxicillin-Pot Clavulanate 875 MG tablet Discontinued 875 mg PO Q12H November 02, 2019 1:00am November 09, 2019 10:56am Start: 07-22-2018 End: 07-25-2018 Amoxicillin/Potassium Clav ( Amox-Clav 875-125 Mg Tablet) 1 EACH tablet Discontinued 1 NMA PO TWICE A DAY July 22, 2018 12:00am July 25, 2018 8:15am x10 days (pt did not start prior to admit) Start: 07-29-2015 End: 07-29-2015 take 1 tablet by mouth every twelve hours at mealtime Amoxicillin-Pot Clavulanate 875 MG tablet Discontinued 875 mg PO Q12H July 29, 2015 2:19pm July 29, 2015 2:21pm take with food azithromycin 250 mg oral tablet (20 sources) Macrolide Antimicrobial Start: 10-14-2017 End: 10-20-2017 take 1 tablet by mouth at bedtime Azithromycin 250 MG tablet Discontinued 250 mg PO AT BEDTIME October 17, 2017 3:38pm October 20, 2017 2:33pm benzonatate 100 mg oral capsule (20 sources) Non-narcotic Antitussive Start: 07-25-2018 End: 08-11-2018 take 1 capsule by mouth every four hours as needed for cough Benzonatate 100 MG capsule Discontinued 100 mg PO EVERY 4 HOURS NEEDED as needed for COUGH July 25, 2018 12:00am August 11, 2018 11:06am celecoxib 200 mg oral capsule (14 sources) Nonsteroidal Anti-inflammatory Drug Start: 01-13-2024 End: 03-02-2024 take 1 capsule by mouth once daily celecoxib (CELEBREX) 200 mg capsule Indications: Pain in both lower extremities Take 1 capsule by mouth once daily. 30 capsule 3 01/13/2024 03/02/2024 Discontinued Comment on above: Take 1 capsule by [facility] once daily. COMPOUNDED PRESCRIPTION (20 sources) Start: 07-27-2018 End: 08-24-2024 COMPOUNDED PRESCRIPTION Indications: LIDA (obstructive sleep apnea) BIPAP of 12/[address] Ramirez 07/27/2018 08/24/2024 Discontinued (Discontinued by Patient) Start: 07-27-2018 COMPOUNDED PRE SCRIPTION Indications: LIDA (obstructive sleep apnea) BIPAP of 12/[address] on 3L oxygen per Dr. Ramirez 07/27/2018 Active Start: 07-27-2018 COMPOUNDED PRE SCRIPTION Indications: LIDA (obstructive sleep apnea) BIPAP of 12/[address] on [address]L oxygen per Dr. Ramirez 0 07/27/2018 Active Comment on above: BIPAP of 12/[address] on [address]L oxygen per Dr. Ramirez ferrous gluconate 324 mg oral tablet (20 sources) Start: 11-16-2019 End: 04-29-2023 take 1 tablet by mouth twice daily at mealtime Ferrous Gluconate (FERGON) 324 mg (38 mg iron) tablet Indications: Iron deficiency anemia, unspecified iron deficiency anemia type Take 1 tablet by mouth twice daily with meals. 60 tablet 5 08/14/2020 02/08/2021 Discontinued Start: 11-15-2019 End: 11-16-2019 take 1 tablet by mouth once daily Ferrous Gluconate 325 MG tablet Discontinued 325 mg PO DAILY 0 November 15, 2019 11:07am November 16, 2019 1:48pm Start: 07-22-2018 End: 11-15-2019 take 1 tablet by mouth twice daily at mealtime Ferrous Gluconate 325 MG tablet Discontinued 325 mg PO TWICE DAILY WITH MEALS July 22, 2018 12:00am November 15, 2019 11:08am Comment on above: Take 1 tablet by rosemary th twice daily with meals. fluticasone propionate 0.05 mg/actuat metered dose nasal spray (20 sources) Corticosteroid Start: 3 End: 4 take 2 spray(s) by mouth once daily fluticasone (FLONASE) 50 mcg/actuation nasal spray Indications: COVID-19 Use 2 Sprays in each nostril once daily. Rinse mouth after use. 1 Each 02/14/2023 08/24/2024 Discontinued (Discontinued by another Health Care Provider) Start: 07-29-2015 End: 07-29-2015 take 1 puff(s) by inhalation twice daily Fluticasone Propionate (Flovent Diskus) 1 PUFF inhaler Discontinued 1 NMA INHALATION TWICE A DAY 1 July 29, 2015 2:19pm July 29, 2015 2:21pm Start: 07-29-2015 End: 07-29-2015 take 1 puff(s) by inhalation twice daily Fluticasone Propionate (Flovent Diskus) 1 PUFF inhaler Discontinued 1 PUFF INHALATION TWICE A DAY 1 July 29, 2015 2:19pm July 29, 2015 2:21pm Comment on above: Use 2 Sprays in each nostril once daily. Rinse mouth after use. ibuprofen 200 mg oral tablet (20 sources) Nonsteroidal Anti-inflammatory Drug Start: 3 End: 4 take 1 tablet by mouth every eight hours as needed for pain ibuprofen (MOTRIN) 200 mg tablet Indications: Right hip pain Take 1 tablet by mouth every 8 hours as needed for pain. 60 tablet 1 04/07/2023 01/13/2024 Discontinued Start: 01-30-2022 End: 01-30-2022 take 1 tablet by mouth every eight hours as needed for pain ibuprofen (MOTRIN) 200 mg tablet Indications: Right hip pain Take 1 tablet by mouth every 8 hours as needed for pain. 60 tablet 1 01/30/2022 Active Comment on above: Take 1 tablet by rosemary th every 8 hours as needed for pain. Take 1-2 tablets by mouth every 8 hours as needed for pain (Take with food.). insulin lispro (HUMALOG KWIKPEN) 100 unit/mL (4 sources) Start: 08-21-2023 insulin lispro (HUMALOG KWIKPEN) 100 unit/mL Sig: Administer Lispro insulin per scale AC breakfast morning, AC lunch, AC dinner, AC bedtime as follows with glucose 150-199 2u, 200-249 3u, 250-299 5u, 300-350 8u, 350-399 11u, 400- 449 14u, 450 and above go to ER. Total per day 64u 1 Each 5 08/21/2023 Active Comment on above: Sig: Administer Lisp ro insulin per scale AC breakfast morning, AC lunch, AC dinner, AC bedtime as follows with glucose 150-199 2u, 200-249 3u, 250-299 5u, 300-350 8u, 350-399 11u, 400- 449 14u, 450 and above go to ER. Total per day 64u insulin, regular, human 100 unt/ml injectable solution (4 sources) Insulin Start: 08-19-2023 End: 08-21-2023 insulin regular human (HUMULIN R REGULAR U-100 INSULN) 100 unit/mL injection Administer Humulin insulin per scale AC breakfast morning, AC lunch, AC dinner, AC bedtime as follows with glucose 150-199 2u, 200-249 3u, 250-299 5u, 300-350 8u, 350-399 11u, 400- 449 14u, 450 and above go to ER. Total per day 64u 1 mL 2 08/20/2023 08/21/2023 Discontinued Start: 08-19-2023 End: 08-19-2023 insulin regular human (HUMUL IN R REGULAR U-100 INSULN) 100 unit/mL injection Administer Humulin insulin per scale AC breakfast morning, AC lunch, AC dinner, AC bedtime 150-199 2u, 200-249 3u, 250-299 5u, 300-350 8u, 350-399 11u, 400- 449 14u, 450 and above go to ER. Total per day 64u 1 mL 1 08/19/2023 08/19/2023 Discontinued Comment on above: Administer Humulin i nsulin per scale AC breakfast morning, AC lunch, AC dinner, AC bedtime 150-199 2u, 200-249 3u, 250-299 5u, 300-350 8u, 350-399 11u, 400- 449 14u, 450 and above go to ER. Total per day 64u Administer Humulin i nsulin per scale AC breakfast morning, AC lunch, AC dinner, AC bedtime as follows with glucose 150-199 2u, 200-249 3u, 250-299 5u, 300-350 8u, 350-399 11u, 400- 449 14u, 450 and above go to ER. Total per day 64u levoFLOXacin 750 mg oral tablet (20 sources) Quinolone Antimicrobial Start: 09-11-20 14 End: 09-15-20 14 take 1 tablet by mouth once daily Levofloxacin (Levaquin) 750 MG tablet Discontinued 750 mg PO DAILY September 11, 2014 1:00am September 15, 2014 12:34pm lubiprostone 0.024 mg oral capsule (20 sources) Chloride Channel Activator Start: 07-22-20 End: 04-29-20 take 1 capsule by mouth twice daily at mealtime lubiprostone (AMITIZA) 24 mcg capsule Indications: Chronic idiopathic constipation Take 1 capsule by mouth twice daily with meals. 60 capsule 11 03/01/2020 02/08/2021 Discontinued Comment on above: Take 1 capsule by [facility] twice daily with meals. magnesium hydroxide 80 mg/ml oral suspension (20 sources) Start: 03-28-20 End: 04-29-20 magnesium hydroxide (MILK OF MAGNESIA) 400 mg/5 mL suspension Indications: Chronic constipation TAKE 15ML BY MOUTH DAILY NEEDED FOR CONSTIPATION (FOR NO BOWEL MOVEMENT AFTER 3 360 mL 5 03/28/2020 08/24/2021 Discontinued Start: 10-31-2019 End: 11-23-2019 take 1 mL by mouth once daily as needed for constipation Magnesium Hydroxide 30 ML suspension Discontinued 30 mL PO DAILY NEEDED as needed for Constipation October 31, 2019 1:00am November 23, 2019 8:33pm Start: 10-31-2019 End: 11-23-2019 take 1 mL by mouth once daily as needed Magnesium Hydroxide Discontinued 30 ML PO DAILY NEEDED October 31, 2019 1:00am November 23, 2019 8:33pm Comment on above: TAKE 15ML BY MOUTH D AILY NEEDED FOR CONSTIPATION (FOR NO BOWEL MOVEMENT AFTER 3 meloxicam 15 mg oral tablet (4 sources) Nonsteroidal Anti-inflammatory Drug Start: 4 End: 4 take 1 tablet by mouth once daily at mealtime meloxicam (MOBIC) 15 mg tablet Indications: Pain in both lower extremities Take 1 tablet by mouth once daily. With food. 30 tablet 1 12/02/2023 01/13/2024 Discontinued (Other) Comment on above: Take 1 tablet by rosemary th once daily. With food. miconazole nitrate 200 mg vaginal insert (20 sources) Azole Antifungal Start: End: miconazole nitrate (MONISTAT) 200 mg vaginal suppository Use 1 Suppository vaginally daily at bedtime. For 7 nights. 7 Suppository 09/01/2023 08/24/2024 Discontinued (Course of therapy completed) Start: 08-31-2023 End: 09-01-2023 miconazole (MONISTAT 7) 2 % vaginal cream Use 1 Applicator vaginally daily at bedtime. 45 g 0 08/31/2023 09/01/2023 Discontinued Comment on above: Use 1 Suppository va ginally daily at bedtime. For 7 nights. Use 1 Applicator vag inally daily at bedtime. Hgytr-4-AFA-EPA-Fish Oil (FISH OIL) 300-1,000 mg cap (20 sources) End: 03-02-2024 Rsrjj-7-MTR-EPA-Fish Oil (FISH OIL) 300-1,000 mg cap Take by mouth. 0 03/02/2024 Discontinued (Duplicate Entry) Izlat-2-IGK-EPA- Fish Oil (FISH OIL) 300-1,000 mg cap Take by mouth. 0 Active Comment on above: Take by mouth. oseltamivir 75 mg oral capsule (20 sources) Neuraminidase Inhibitor Start: 11-15-19 End: 11-23-19 take 1 capsule by mouth twice daily Oseltamivir 75 MG capsule Discontinued 75 mg PO TWICE A DAY November 16, 2019 1:47pm November 23, 2019 8:33pm perflutren lipid microspheres 1.3 mL in NaCl (PF) 0.9% 10 mL injection (DEFINITY) (2 sources) Start: 07-31-20 End: 10-30-19 perflutren lipid microspheres 1.3 mL in NaCl (PF) 0.9% 10 mL injection (DEFINITY) psyllium 3400 mg powder for oral suspension (1 source) Start: 05-07-20 End: 11-03-19 take 1 dose by mouth once daily psyllium husk, with sugar, (METAMUCIL, WITH SUGAR,) 3.4 gram packet Take 1 Packet by mouth once daily. In 8 oz of liquid 30 Packet 5 05/07/2021 11/03/2021 regadenoson (LEXISCAN) 0.4 mg/5 mL syrg (1 source) Start: 04-29-20 End: 04-29-20 regadenoson (LEXISCAN) 0.4 mg/5 mL syrg Indications: Chest pain, unspecified type Inject 5 mL intravenously one time only for 1 dose. Give IV push over 10 seconds and follow with 5 ml of normal saline 5 mL 0 04/29/2023 04/29/2023 Comment on above: Inject 5 mL intraven ously one time only for 1 dose. Give IV push over 10 seconds and follow with 5 ml of normal saline 125 ml sodium chloride 9 mg/ml prefilled syringe (2 sources) Start: 07-31-20 End: 10-30-19 sodium chloride 0.9 % (flush) 10 mL (BD POSIFLUSH) wheat dextrin 3000 mg powder for oral solution (20 sources) Start: 10-31-19 End: 11-23-19 Wheat Dextrin 1 EACH powder in packet Discontinued 15 mL PO DAILY October 31, 2019 1:00am November 23, 2019 8:33pm Start: 10-31-2019 End: 11-23-2019 take 1 mL by mouth once daily Wheat Dextrin Discontinu ed 15 ML PO DAILY October 31, 2019 1:00am November 23, 2019 8:33pm Start: 11-07-2017 End: 05-07-2021 wheat dextrin (BENEFIBER SUG AR FREE, DEXTRIN,) 3 gram/3.8 gram powd Stir 2 teaspoonfuls into 4-8 oz of beverage or soft food daily 11/07/2017 05/07/2021 Discontinued Start: 12-18-2016 End: 10-20-2017 Wheat Dextrin (Benefiber Epi ar Sf (Dextrin)) 1 EACH Powd.Pack Discontinued 1 NMA PO AT BEDTIME December 18, 2016 1:00am October 20, 2017 2:34pm Start: 12-18-2016 End: 10-20-2017 Wheat Dextrin (Benefiber Epi ar Sf (Dextrin)) 1 EACH Powd.Pack Discontinued 1 EACH PO AT BEDTIME December 18, 2016 1:00am October 20, 2017 2:34pm Problems Active Problems Problem Classification Problem Date Documented Da te Episodic/Chronic Abdominal pain (6 sources) Epigastric pain; Translations: [Epigastric pain] Episodic Anxiety disorders (20 sources) Anxiety; Translations: [Anxiety disorder, unspecified] 07-30-2021 Chronic Attention-deficit, conduct, and disruptive behavior disorders (1 source) Altered behavior; Translations: [Other symptoms and signs involving appearance and behavior] 07-19-2021 Episodic Cardiac dysrhythmias (20 sources) Supraventricular tachycardia; Translations: [Supraventricular tachycardia] Onset: 0 08-28-2020 Chronic Chronic obstructive pulmonary disease and bronchiectasis (20 sources) Chronic obstructive lung disease; Translations: [Chronic obstructive pulmonary disease, unspecified] Onset: 4 03-16-2014 Chronic Coagulation and hemorrhagic disorders (3 sources) Thrombocytopenic disorder; Translations: [Thrombocytopenia, unspecified] Onset: 4 03-05-2024 Chronic Congestive heart failure; nonhypertensive (20 sources) Acute diastolic heart failure; Translations: [Acute diastolic (congestive) heart failure] Onset: 8 11-07-2017 Chronic Deficiency and other anemia (1 source) Iron deficiency anemia; Translations: [Iron deficiency anemia, unspecified] Episodic Diabetes mellitus with complications (20 sources) Type 2 diabetes mellitus in obese; Translations: [Type 2 diabetes mellitus with other specified complication] Onset: 4 Resolved: 8 09-13-2015 Chronic Diseases of white blood cells (7 sources) Leukocytosis; Translations: [Elevated white blood cell count, unspecified] Onset: 5 12-31-2024 Chronic Disorders of lipid metabolism (20 sources) Hyperlipidemia; Translations: [Hyperlipidemia, unspecified] Onset: 2 05-06-2012 Chronic Esophageal disorders (20 sources) Gastroesophageal reflux disease; Translations: [Gastro-esophageal reflux disease without esophagitis] Chronic Essential hypertension (20 sources) Hypertensive disorder; Translations: [Essential (primary) hypertension] Onset: 3 08-24-2018 Chronic Fever of unknown origin (1 source) Fever; Translations: [Fever, unspecified] 11-09-2024 Episodic Immunizations and screening for infectious disease (8 sources) Exposure to Hepatitis B virus; Translations: [Contact with and (suspected) exposure to viral hepatitis] Onset: 4 12-30-2024 Episodic Impulse control disorders, NEC (20 sources) Homicidal thoughts; Translations: [Homicidal ideations] 06-14-2022 Episodic Inflammation; infection of eye (except that caused by tuberculosis or sexually transmitteddisease) (1 source) Conjunctivitis of left eye; Translations: [Unspecified conjunctivitis] Episodic Influenza (20 sources) Influenza due to Influenza B virus; Translations: [Influenza due to other identified influenza virus with other respiratory manifestations] 11-16-2019 Episodic Intestinal obstruction without hernia (20 sources) Fecal impaction; Translations: [Fecal impaction] 11-16-2019 Episodic Menopausal disorders (20 sources) Postmenopausal bleeding; Translations: [Postmenopausal bleeding] Onset: 7 09-26-2017 Chronic Mood disorders (20 sources) Depressive disorder; Translations: [Depression] 04-09-2022 Chronic Mycoses (1 source) Tinea cruris; Translations: [Tinea cruris] 08-24-2024 Episodic Nausea and vomiting (3 sources) Nausea and vomiting; Translations: [Nausea with vomiting, unspecified] Onset: 5 10-22-2024 Episodic Nonspecific chest pain (1 source) Chest pain; Translations: [Chest pain, unspecified] 04-29-2023 Episodic Nutritional deficiencies (20 sources) Vitamin D deficiency; Translations: [Vitamin D deficiency, unspecified] Onset: 9 05-03-2011 Chronic Other aftercare (1 source) Other chcf (current) drug therapy; Translations: [Other client relations associate (current) drug therapy] Onset: 5 Episodic Other connective tissue disease (13 sources) Pain in bilateral legs; Translations: [Pain in right leg] 12-02-2023 Episodic Other eye disorders (1 source) Pain of right eye; Translations: [Ocular pain, right eye] 07-23-2024 Episodic Other female genital disorders (1 source) Pruritus of vagina; Translations: [Other specified noninflammatory disorders of vagina] 08-29-2023 Episodic Other gastrointestinal disorders (1 source) Chronic idiopathic constipation; Translations: [Chronic idiopathic constipation] Chronic Other gastrointestinal disorders (20 sources) Dysphagia; Translations: [Dysphagia, unspecified] 11-16-2019 Episodic Other gastrointestinal disorders (2 sources) Chronic constipation; Translations: [Other constipation] Episodic Other gastrointestinal disorders (20 sources) Constipation; Translations: [Constipation, unspecified] 02-01-2016 Episodic Other gastrointestinal disorders (1 source) Abdominal bloating; Translations: [Abdominal distension (gaseous)] Episodic Other gastrointestinal disorders (3 sources) Acute constipation; Translations: [Constipation, unspecified] 01-13-2024 Episodic Other hematologic conditions (1 source) Protein level - finding; Translations: [Other specified abnormalities of plasma proteins] Episodic Other hematologic conditions (20 sources) Raised cardiac enzyme or marker; Translations: [Other specified abnormalities of plasma proteins] 11-16-2019 Episodic Other hereditary and degenerative nervous system conditions (20 sources) Restless legs; Translations: [Restless legs syndrome] [...] lactic acid dehydrogenase (LDH)] 12-28-2013 Episodic Other liver diseases (7 sources) Elevated liver enzymes level; Translations: [Abnormal levels of other serum enzymes] 03-05-2024 Episodic Other lower respiratory disease (1 source) Dyspnea; Translations: [Shortness of breath] 10-18-2020 Episodic Other lower respiratory disease (1 source) Cough; Translations: [Cough] 10-18-2020 Episodic Other lower respiratory disease (2 sources) Cough; Translations: [Acute cough] 11-09-2024 Episodic Other lower respiratory disease (4 sources) Respiratory insufficiency; Translations: [Other abnormalities of breathing] 11-20-2024 Episodic Other lower respiratory disease (1 source) Shortness of breath; Translations: [Shortness of breath] Onset: Episodic Other non-traumatic joint disorders (1 source) Pain in right hip joint; Translations: [Pain in right hip] Episodic Other nutritional; endocrine; and metabolic disorders (20 sources) Obese class II; Translations: [Obesity, unspecified] Onset: 8 03-16-2018 Chronic Other nutritional; endocrine; and metabolic disorders (20 sources) Obese class I; Translations: [Obesity, unspecified] Onset: 2 06-03-2022 Chronic Other nutritional; endocrine; and metabolic disorders (4 sources) Body mass index 30+ - obesity; Translations: [Obesity, unspecified] 11-20-2024 Chronic Other nutritional; endocrine; and metabolic disorders (1 source) Obesity, unspecified; Translations: [Obesity, unspecified] Onset: Chronic Other nutritional; endocrine; and metabolic disorders (1 source) Weight loss; Translations: [Abnormal weight loss] 04-29-2023 Episodic Other skin disorders (1 source) Skin irritation ; Translations: [Other skin changes] Episodic Other skin disorders (1 source) Folliculitis; Translations: [Follicular disorder, unspecified] 04-14-2024 Episodic Other upper respiratory disease (2 sources) Nasal mucosa dry; Translations: [Other specified disorders of nose and nasal sinuses] 01-13-2024 Episodic Other upper respiratory infections (1 source) Acute upper respiratory infection; Translations: [Acute upper respiratory infection, unspecified] 11-09-2024 Episodic Residual codes; unclassified (20 sources) Obstructive sleep apnea syndrome; Translations: [Obstructive sleep apnea (adult) (pediatric)] Onset: 7 11-07-2017 Chronic Residual codes; unclassified (1 source) Swelling - edema - symptom; Translations: [Edema, unspecified] Episodic Residual codes; unclassified (20 sources) Edema; Translations: [Edema, unspecified] 11-16-2019 Episodic Residual codes; unclassified (1 source) Altered mental status; Translations: [Altered mental status, unspecified] 07-19-2021 Episodic Schizophrenia and other psychotic disorders (20 sources) Schizophrenia; Translations: [Schizophrenia, unspecified] Onset: 7 08-26-2017 Chronic Screening and history of mental health and substance abuse codes (2 sources) Personal history of nicotine dependence; Translations: [Personal history of nicotine dependence] Onset: 4 Episodic Skin and subcutaneous tissue infections (1 source) Infected face; Translations: [Local infection of the skin and subcutaneous tissue, unspecified] Episodic Spondylosis; intervertebral disc disorders; other back problems (2 sources) Degeneration of lumbar intervertebral disc; Translations: [Degeneration of intervertebral disc of lumbar region with discogenic back pain and lower extremity pain] 12-28-2024 Chronic Spondylosis; intervertebral disc disorders; other back problems (1 source) Backache; Translations: [Dorsalgia, unspecified] Episodic Suicide and intentional self-inflicted injury (20 sources) Suicidal thoughts; Translations: [Suicidal ideations] 04-18-2022 Episodic Unclassified (1 source) Unknown / UNK(Unknown) Onset: Unclassified (1 source) Acute cough; Translations: [Acute cough] Onset: Viral infection (4 sources) Disease caused by 2019-nCoV; Translations: [COVID-19] Episodic Past or Other Problems Problem Classification Problem Date Documented Date Episodic/Chronic Administrative/social admission (20 sources) Patient encounter status; Translations: [Other specified counseling] Onset: 01-14-2022 Episodic Cardiac dysrhythmias (20 sources) Palpitations; Translations: [Tachycardia] Onset: 11-27-2017 08-28-2020 Episodic Diabetes mellitus without complication (20 sources) Diabetes mellitus; Translations: [Type 2 diabetes mellitus without complications] Onset: 11-08-2008 Resolved: 02-22-2014 11-16-2019 Chronic Diabetes mellitus without complication (20 sources) Abnormal glucose level; Translations: [Other abnormal glucose] Resolved: 04-29-2018 10-08-2021 Episodic Fluid and electrolyte disorders (20 sources) Hypokalemia; Translations: [Hypokalemia] Onset: 09-22-2014 09-22-2014 Episodic Gastritis and duodenitis (20 sources) Gastritis; Translations: [Gastritis, unspecified, without bleeding] Onset: 08-07-2009 08-07-2009 Episodic Malaise and fatigue (20 sources) Asthenia; Translations: [Other malaise] Onset: 07-06-2024 11-16-2019 Episodic Other aftercare (1 source) 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; Translations: [Type 2 diabetes mellitus with diabetic nephropathy, with long-term current use of insulin (HCC)] Onset: 09-13-2015 Episodic Other circulatory disease (20 sources) History of clinical finding in subject; Translations: [Personal history of other diseases of the circulatory system] Onset: 05-21-2021 Resolved: 01-14-2022 05-21-2021 Episodic Other connective tissue disease (20 sources) Other symptoms and signs involving the musculoskeletal system; Translations: [Other musculoskeletal symptoms referable to limbs] Onset: 03-02-2024 01-13-2024 Episodic Other connective tissue disease (1 source) Pain in right leg; Translations: [Leg pain, bilateral] Onset: 11-02-2024 Episodic Other connective tissue disease (1 source) Pain in left leg; Translations: [Leg pain, bilateral] Onset: 11-02-2024 Episodic Other injuries and conditions due to external causes (20 sources) H/O: injury; Translations: [Personal history of other (healed) physical injury and trauma] Onset: 08-12-2018 Resolved: 01-14-2022 08-12-2018 Episodic Other liver diseases (1 source) Abnormal levels of other serum enzymes; Translations: [Elevated liver enzymes] Onset: 03-30-2024 Episodic Other lower respiratory disease (1 source) Other abnormalities of breathing; Translations: [Other abnormalities of breathing] Onset: 11-17-2024 Episodic Other screening for suspected conditions (not mental disorders or infectious disease) (20 sources) Liver function tests abnormal; Translations: [Other specified abnormal findings of blood chemistry] Onset: 09-04-2009 Resolved: 01-14-2022 02-26-2010 Episodic Pneumonia (except that caused by tuberculosis or sexually transmitted disease) (20 sources) Infective pneumonia; Translations: [Pneumonia, unspecified organism] Onset: 08-06-2018 Resolved: 08-06-2018 08-06-2018 Episodic Residual codes; unclassified (20 sources) Tobacco user; Translations: [Tobacco use] Onset: 09-07-2012 Resolved: 11-07-2016 11-07-2016 Episodic Respiratory failure; insufficiency; arrest (adult) (20 sources) Acute respiratory failure; Translations: [Acute respiratory failure with hypoxia] Onset: 09-22-2023 Resolved: 12-28-2024 11-16-2019 Episodic Substance-related disorders (20 sources) Benzodiazepine dependence; Translations: [Sedative, hypnotic or anxiolytic dependence, uncomplicated] Onset: 01-13-2024 Resolved: 12-28-2024 11-16-2019 Chronic Results Test Name Value Interpretation Reference Range Facility CNPNon 03-14-2025 CNPN Normal [facility] CBC W/Diff, Automatedon 05-2 Absolute Lymph 1.91 X10 3/uL Normal 0.83-4.51 [facility] Comment on above: Performed By: #### L 100.0100 #### [facility] [address] [place], [address] Absolute Neut 9.8 X10 3/uL High 2.0-7.7 [facility] Comment on above: Performed By: #### L 100.0100 #### [facility] [address] [place], [address] Basophils/100 WBC (Bld) 0.4 % Normal 0-1 [facility] Comment on above: Performed By: #### L 100.0100 #### [facility] [address] [place], [address] Eosinophils/100 WBC (Bld) 0.2 % Normal 0-5 [facility] Comment on above: Performed By: #### L 100.0100 #### [facility] [address] [place], [address] Erythrocyte distribution width (RBC) [Ratio] 14.1 % Normal 11.6-14.6 [facility] Comment on above: Performed By: #### L 100.0100 #### [facility] [address] [place], [address] Hematocrit (Bld) [Volume fraction] 39.9 % Normal 37-47 [facility] Comment on above: Performed By: #### L 100.0100 #### [facility] [address] [place], [address] Hemoglobin (Bld) [Mass/Vol] 13.4 g/dL Normal 12.0-15.0 [facility] Comment on above: Performed By: #### L 100.0100 #### [facility] [address] [place], [address] IG% 0.600 Normal 0.0-0.9 [facility] Comment on above: Result Comment: IG% - Immature Granulocytes (promyelocytes, myelocytes and metamyelocytes) > 1% indicates that a LEFT SHIFT is Present. Performed By: #### L 100.0100 #### [facility] [address] [place], [address] Lymphocytes/100 WBC (Bld) 15.0 % Low 19-41 [facility] Comment on above: Performed By: #### L 100.0100 #### [facility] [address] [place], [address] MCH (RBC) [Entitic mass] 29.5 pg Normal 27.0-32.0 [facility] Comment on above: Performed By: #### L 100.0100 #### [facility] [address] [place], [address] MCHC (RBC) [Mass/Vol] 33.6 g/dL Normal 32-36 [facility] Comment on above: Performed By: #### L 100.0100 #### [facility] [address] [place], [address] MCV (RBC) [Entitic vol] 87.7 fL Normal 81-99 [facility] Comment on above: Performed By: #### L 100.0100 #### [facility] [address] [place], [address] Monocytes/100 WBC (Bld) 6.6 % Normal 0-10 [facility] Comment on above: Performed By: #### L 100.0100 #### [facility] [address] [place], [address] Neutrophils/100 WBC (Bld) 77.2 % High 47-70 [facility] Comment on above: Performed By: #### L 100.0100 #### [facility] [address] [place], [address] Nucleated RBC (Bld) [#/Vol] 0 10*3/uL Normal 0-5 [facility] Comment on above: Performed By: #### L 100.0100 #### [facility] [address] [place], [address] Platelet mean volume (Bld) [Entitic vol] 10.9 fL Normal 6.2-12.0 [facility] Comment on above: Performed By: #### L 100.0100 #### [facility] [address] [place], [address] Platelets (Bld) [#/Vol] 212 10*3/uL Normal 150-450 [facility] Comment on above: Performed By: #### L 100.0100 #### [facility] [address] [place], [address] RBC (Bld) [#/Vol] 4.55 10*6/uL Normal 4.2-5.4 [facility] Comment on above: Performed By: #### L 100.0100 #### [facility] [address] [place], [address] RDW SD 44.8 fl High 35.1-43.9 [facility] Comment on above: Performed By: #### L 100.0100 #### [facility] [address] [place], [address] WBC (Bld) [#/Vol] 12.7 10*3/uL High 4.4-11.0 [facility] Comment on above: Performed By: #### L 100.0100 #### [facility] [address] [place], [address] CNPNon 03-01-2025 CNPN Normal [facility] CNPNon 02-25-2025 CNPN Normal [facility] CNPNon 02-10-2025 CNPN Normal [facility] CBC W/Diff, Automatedon 01-12 REACTIVE LYMPH RARE Normal [facility] Comment on above: Performed By: #### L 100.0100 #### [facility] [address] [place], [address] CNPNon 01-31-2025 CNPN Normal [facility] CNPNon 01-27-2025 CNPN Normal [facility] CNPNon 01-21-2025 CNPN Normal [facility] FRANNY SCREENING W TOMOon 01-19 FRANNY SCREENING W AUGUSTO Normal [facility] No Panel Informationon 01-18 IMPRESSION: Hepatic steatosis. Prior cholecystectomy. 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 Transcribe Date/Time: Jan 18 2025 11:43A Dictated by : SABRA BYRD MD This examination was interpreted and the report reviewed and electronically signed by: SABRA BYRD MD on Jan 18 2025 11:44AM [facility] DIVISION OF RADIOLOGY Radiology Study observation (narrative) [facility] No Panel InformationOrdered By: Ccf Provider on 01-18-2025 [facility] US ABD RIGHT UPPER QUADRANTo n 01-18-2025 US ABD RIGHT UPPER QUADRANT Normal [facility] US ABD SPLEEN - NBon 025 * * *Final Report* * * DATE OF EXAM: Jan 18 2025 10:29AM WRU 1232 - US ABD SPLEEN -NB / PROCEDURE REASON: Elevated liver enzymes * * * * Physician Interpretation * * * * EXAMINATION: RIGHT UPPER QUADRANT AND SPLEEN ULTRASOUND CLINICAL HISTORY: Elevated liver enzymes TECHNIQUE: Sonography of the right upper quadrant and spleen was performed. Images were obtained and stored in a permanent archive and interpreted remotely. MQ: URUQ_2 COMPARISON: CT abdomen dated 05/11/2014 RESULT: Pancreas: Normal sonographic appearance. Portions obscured: tail Liver: Echotexture: Normal, homogeneous. Echogenicity: Increased Surface contour: Smooth Lesions: None. Biliary: No intrahepatic biliary duct dilation. CBD: 0.4 cm at the hilum. Gallbladder: Prior cholecystectomy Bilateral kidneys: Normal cortical echogenicity. No hydronephrosis. Spleen: Top normal in size measuring 13.1 cm in craniocaudad dimension. Ascites: None. DIVISION OF RADIOLOGY Provider, E[facility] - 01/18/2025 * * *Final Report* * * DATE OF EXAM: Jan 18 2025 10:29AM WRU 1232 - US ABD SPLEEN -NB / PROCEDURE REASON: Elevated liver enzymes * * * * Physician Interpretation * * * * EXAMINATION: RIGHT UPPER QUADRANT AND SPLEEN ULTRASOUND CLINICAL HISTORY: Elevated liver enzymes TECHNIQUE: Sonography of the right upper quadrant and spleen was performed. Images were obtained and stored in a permanent archive and interpreted remotely. MQ: URUQ_2 COMPARISON: CT abdomen dated 05/11/2014 RESULT: Pancreas: Normal sonographic appearance. Portions obscured: tail Liver: Echotexture: Normal, homogeneous. Echogenicity: Increased Surface contour: Smooth Lesions: None. Biliary: No intrahepatic biliary duct dilation. CBD: 0.4 cm at the hilum. Gallbladder: Prior cholecystectomy Bilateral kidneys: Normal cortical echogenicity. No hydronephrosis. Spleen: Top normal in size measuring 13.1 cm in craniocaudad dimension. Ascites: None. IMPRESSION IMPRESSION: Hepatic steatosis. Prior cholecystectomy. 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 Transcribe Date/Time: Jan 18 2025 11:43A Dictated by : SABRA BYRD MD This examination was interpreted and the report reviewed and electronically signed by: SABRA BYRD MD on Jan 18 2025 11:44AM EST [facility] US ABD SPLEEN -NBon 01-19-20 25 US ABD SPLEEN -NB Normal [facility] US Abdomen RUQon 01-18-2025 * * *Final Report* * * DATE OF EXAM: Jan 18 2025 10:29AM WRU 1032 - US ABD RIGHT UPPER QUADRANT / PROCEDURE REASON: Elevated liver enzymes * * * * Physician Interpretation * * * * EXAMINATION: RIGHT UPPER QUADRANT AND SPLEEN ULTRASOUND CLINICAL HISTORY: Elevated liver enzymes TECHNIQUE: Sonography of the right upper quadrant and spleen was performed. Images were obtained and stored in a permanent archive and interpreted remotely. MQ: URUQ_2 COMPARISON: CT abdomen dated 05/11/2014 RESULT: Pancreas: Normal sonographic appearance. Portions obscured: tail Liver: Echotexture: Normal, homogeneous. Echogenicity: Increased Surface contour: Smooth Lesions: None. Biliary: No intrahepatic biliary duct dilation. CBD: 0.4 cm at the hilum. Gallbladder: Prior cholecystectomy Bilateral kidneys: Normal cortical echogenicity. No hydronephrosis. Spleen: Top normal in size measuring 13.1 cm in craniocaudad dimension. Ascites: None. DIVISION OF RADIOLOGY Provider, [facility] - 01/18/2025 * * *Final Report* * * DATE OF EXAM: Jan 18 2025 10:29AM WRU 1032 - US ABD RIGHT UPPER QUADRANT / PROCEDURE REASON: Elevated liver enzymes * * * * Physician Interpretation * * * * EXAMINATION: RIGHT UPPER QUADRANT AND SPLEEN ULTRASOUND CLINICAL HISTORY: Elevated liver enzymes TECHNIQUE: Sonography of the right upper quadrant and spleen was performed. Images were obtained and stored in a permanent archive and interpreted remotely. MQ: URUQ_2 COMPARISON: CT abdomen dated 05/11/2014 RESULT: Pancreas: Normal sonographic appearance. Portions obscured: tail Liver: Echotexture: Normal, homogeneous. Echogenicity: Increased Surface contour: Smooth Lesions: None. Biliary: No intrahepatic biliary duct dilation. CBD: 0.4 cm at the hilum. Gallbladder: Prior cholecystectomy Bilateral kidneys: Normal cortical echogenicity. No hydronephrosis. Spleen: Top normal in size measuring 13.1 cm in craniocaudad dimension. Ascites: None. IMPRESSION IMPRESSION: Hepatic steatosis. Prior cholecystectomy. 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 Transcribe Date/Time: Jan 18 2025 11:43A Dictated by : SABRA BYRD MD This examination was interpreted and the report reviewed and electronically signed by: SABRA BYRD MD on Jan 18 2025 11:44AM EST [facility] CNOVon 01-12-2025 CNOV Normal [facility] CNPNon 01-12-2025 CNPN Normal [facility] HBV DNA Qn (S)on 01-12-2025 HBV DNA LUIS M+probe Ql Not detected Not detected [facility] Interpretation and review of laboratory results Normal [facility] melanie HBV is an in v itro nucleic acid amplification test for the quantitation of hepatitis B virus DNA in human EDTA plasma or serum of HBV-infected individuals. The linear range of the assay is 10 to 1,000,000,000 IU/mL (1.00 - 9.00 log IU/mL). The lower limit of detection of the assay is 2.7 IU/mL in EDTA plasma and 2.4 IU/mL in serum. [facility] HBV core Ab Ql (S)on 025 Interpretation and review of laboratory results Normal [facility] HBV core IgM Ql (S)on 2024 Interpretation and review of laboratory results Abnormal [facility] HBV surface Ab Ql (S)on HBV surface Ab Qn (S) mIU/mL [facility] Comment on above: <8 mIU/mL: No serolo gical evidence of immunity to Hepatitis B Virus. >/= 8 to <12 mIU/mL: No serological evidence of immunity to Hepatitis B Virus. >/= 12 mIU/mL: Consistent with serological evidence of immunity to Hepatitis B Virus. [facility] HBV surface Ag Ql (S)on Interpretation and review of laboratory results Normal [facility] HEPATITIS B CORE ANTIBODY IG 01-12-2025 HBV core IgM Ql (S) Positive Abnormal Negative [facility] Comment on above: The result suggests recent acute infection with Hepatitis B virus. Non-specific reactivity is not uncommon with this test. HBV core IgM antibody may also remain elevated for extended periods after an acute bout of infection. Clinical correlation required. HEPATITIS B CORE ANTIBODY TO Joslyn 01-12-2025 HBV core Ab Ql (S) Negative Negative [facility] Comment on above: No evidence of curre nt or past infection with Hepatitis B virus. Should recent infection be suspected, repeat testing may be considered 3-4 weeks after this draw. HEPATITIS B SURFACE ANTIBODY on 01-12-2025 HBV surface Ab Ql (S) Negative [facility] Comment on above: No serological evide nce of immunity to Hepatitis B Virus. HEPATITIS B SURFACE ANTIGENo n 01-12-2025 HBV surface Ag Ql (S) Negative Negative [facility] Osmolality Uron 01-12-2025 Osmolality (U) [Osmolality] 131 mosm/kg Normal 50-1200 [facility] Comment on above: Order Comment: Speci men Type: URINE SPECIMENOrdering Facility: [facility] Address: [address] [place] [address] Performed By: #### 2 695-5 ####[facility] LABCLIA [id number] [address] [place] [address] [place] Sodium ?Tm Ur-sCncon 025 Sodium Unsp time (U) [Moles/Vol] 32 mmol/L Normal 14-216 [facility] Comment on above: Order Comment: Speci men Type: URINE SPECIMENOrdering Facility: [facility] Address: [address] [place] [address] Performed By: #### 3 5678-2 ####[facility] LABCLIA [id number] [address] [place] [address] [place] Comprehensive metabolic 2000 panelon 01-11-2025 Albumin [Mass/Vol] 4.7 g/dL Normal 3.9-4.9 [facility] Comment on above: Order Comment: Speci men Type: BLOOD SPECIMENOrdering Facility: [facility] Address: [address] [place] [address] Performed By: #### 1 6933-4, 32015-8, 5195-3, 22110-8, 28046-4 ####[facility] LABIA [id number] [place] [address] [place] ALP [Catalytic activity/Vol] 128 U/L High 34-123 [facility] Comment on above: Order Comment: Speci men Type: BLOOD SPECIMENOrdering Facility: [facility] Address: [address] [place] [address] Performed By: #### 1 6933-4, 70609-4, 5195-3, 68749-9, 30537-8 ####[facility] LABCLIA [id number] [facility] [id number] [address] [place] ALT [Catalytic activity/Vol] 51 U/L High 7-38 [facility] Comment on above: Order Comment: Speci men Type: BLOOD SPECIMENOrdering Facility: [facility] Address: [address] [place] [address] Performed By: #### 1 6933-4, 55755-3, 5195-3, 94472-1, 46156-1 ####[facility] LABCLIA [id number] [address] [address] [place] Anion gap [Moles/Vol] 19 mmol/L High 8-15 [facility] Comment on above: Order Comment: Speci men Type: BLOOD SPECIMENOrdering Facility: [facility] Address: [address] [place] [address] Performed By: #### 1 6933-4, 45233-4, 5195-3, 78876-5, 92333-1 ####[facility] LABCLIA [id number] [place] [address] [place] AST [Catalytic activity/Vol] 23 U/L Normal 13-35 [facility] Comment on above: Order Comment: Speci men Type: BLOOD SPECIMENOrdering Facility: [facility] Address: [address] [place] [address] Performed By: #### 1 6933-4, 31715-9, 5195-3, 74829-6, 05132-6 ####[facility] LABCLIA [id number] [place] [id number] [place] Bilirubin [Mass/Vol] 0.3 mg/dL Normal 0.2-1.3 [facility] Comment on above: Order Comment: Speci men Type: BLOOD SPECIMENOrdering Facility: [facility] Address: [address] [place] [address] Performed By: #### 1 6933-4, 28749-6, 5195-3, 42822-9, 94806-2 ####[facility] LABCLIA [id number] [place] [id number] [place] Calcium [Mass/Vol] 9.4 mg/dL Normal 8.5-10.2 [facility] Comment on above: Order Comment: Speci men Type: BLOOD SPECIMENOrdering Facility: [facility] Address: [address] [place] [address] Performed By: #### 1 6933-4, 50912-1, 5195-3, 60638-7, 18759-7 ####[facility] LABCLIA [id number] [place] [address] [place] Chloride [Moles/Vol] 93 mmol/L Low 98-107 [facility] Comment on above: Order Comment: Speci men Type: BLOOD SPECIMENOrdering Facility: [facility] Address: [address] [place] [address] Performed By: #### 1 6933-4, 28762-1, 5195-3, 93386-6, 96402-3 ####[facility] LABCLIA [id number] [place] [address] [place] CO2 [Moles/Vol] 18 mmol/L Low 22-30 [facility] Comment on above: Order Comment: Speci men Type: BLOOD SPECIMENOrdering Facility: [facility] Address: [address] [place] [address] Performed By: #### 1 6933-4, 29437-4, 5195-3, 99158-5, 26934-0 ####[facility] LABCLIA [id number] [place] [address] [place] Creatinine [Mass/Vol] 0.40 mg/dL Low 0.58-0.96 [facility] Comment on above: Order Comment: Speci men Type: BLOOD SPECIMENOrdering Facility: [facility] Address: [address] [place] [address] Performed By: #### 1 6933-4, 07001-8, 5195-3, 09063-0, 83913-5 ####[facility] LABCLIA [id number] [place] [address] [place] Creatinine and Glomerular filtration rate.predicted panel (S/P/Bld) 113 mL/min/1.73m??? Normal >=60 [facility] Comment on above: Order Comment: Rand gonzalez Type: BLOOD SPECIMENOrdering Facility: [facility] Address: [address] [place] [address] Result Comment: Gia mated Glomerular Filtration Rate (eGFR) is calculated using the 2020 CKD-EPI creatinine equation. This equation utilizes serum creatinine, sex, and age as parameters. The creatinine assay has traceable calibration to isotope dilution-mass spectrometry. Refer to KDIGO guidelines for clinical interpretation. In patients with unstable renal function, e.g. those with acute kidney injury, the eGFR may not accurately reflect actual GFR. Performed By: #### 1 6933-4, 78651-8, 5195-3, 62735-3, 32837-6 ####[facility] LABCLIA [id number] [place] [address] [place] Glucose [Mass/Vol] 155 mg/dL High 74-99 [facility] Comment on above: Order Comment: Rand gonzalez Type: BLOOD SPECIMENOrdering Facility: [facility] Address: [address] [place] [address] Result Comment: The [place] [employer] (ADA) provides guidance for cutoff values for fasting glucose and random glucose. The ADA defines fasting as no caloric intake for at least 8 hours. Fasting plasma glucose results between 100 to 125 mg/dL indicate increased risk for diabetes (prediabetes).Fasting plasma glucose results greater than or equal to 126 mg/dL meet the criteria for diagnosis of diabetes. In the absence of unequivocal hyperglycemia, results should be confirmed by repeat testing. In a patient with classic symptoms of hyperglycemia or hyperglycemic crisis, random plasma glucose results greater than or equal to 200 mg/dL meet the criteria for diagnosis of diabetes.Reference: Standards of Medical Care in Diabetes 2016, [place] [employer]. Diabetes Care. 2016.39(Suppl 1). Performed By: #### 1 6933-4, 05386-7, 5195-3, 14647-1, 19051-6 ####[facility] LABCLIA [id number] [facility] [address] [address] [place] Potassium [Moles/Vol] 4.6 mmol/L Normal 3.7-5.1 [facility] Comment on above: Order Comment: Speci men Type: BLOOD SPECIMENOrdering Facility: [facility] Address: [address] [place] [address] Performed By: #### 1 6933-4, 57495-8, 5195-3, 87610-9, 60293-5 ####[facility] LABCLIA [id number] [address] [address] [place] Protein [Mass/Vol] 7.4 g/dL Normal 6.3-8.0 [facility] Comment on above: Order Comment: Speci men Type: BLOOD SPECIMENOrdering Facility: [facility] Address: [address] [place] [address] Performed By: #### 1 6933-4, 16973-0, 5195-3, 07145-4, 08634-6 ####[facility] LABCLIA [id number] [address] [address] [place] Sodium [Moles/Vol] 130 mmol/L Low 136-144 [facility] Comment on above: Order Comment: Speci men Type: BLOOD SPECIMENOrdering Facility: [facility] Address: [address] [place], [place] [address] Performed By: #### 1 6933-4, 28783-6, 5195-3, 94939-7, 55371-5 ####[facility] LABCLIA [id number] [address] [address] [place] Urea nitrogen [Mass/Vol] 7 mg/dL Normal 7-21 [facility] Comment on above: Order Comment: Speci men Type: BLOOD SPECIMENOrdering Facility: [facility] Address: [address] [place] [address] Performed By: #### 1 6933-4, 37013-5, 5195-3, 91742-3, 06018-2 ####[facility] LABCLIA [id number] [place] [address] [place] HBV DNA Qn (S)on 01-11-2025 HBV DNA LUIS M+probe Ql Not detected Normal Not detected [facility] Comment on above: Order Comment: Speci carlos Type: BLOOD SPECIMENOrdering Facility: [facility] Address: [address] [place] [address] Performed By: #### 1 1258-1 ####[facility] LABCLIA [id number] [address] [place] HBV core Ab Ser Qlon 025 HBV core Ab Ql (S) Negative Normal Negative [facility] Comment on above: Order Comment: Speci carlos Type: BLOOD SPECIMENOrdering Facility: [facility] Address: [address] [place] [address] Result Comment: No e vidence of current or past infection with Hepatitis B virus. Should recent infection be suspected, repeat testing may be considered 3-4 weeks after this draw. Performed By: #### 1 6933-4, 58242-1, 5194-3, 37527-3, 20153-3 ####[facility] LABCLIA [id number] [address] [place] HBV core IgM Ser Qlon 2024 HBV core IgM Ql (S) Positive Abnormal Negative [facility] Comment on above: Order Comment: Speci men Type: BLOOD SPECIMENOrdering Facility: [facility] Address: [address] [place] [address] Result Comment: The result suggests recent acute infection with Hepatitis B virus. Non-specific reactivity is not uncommon with this test. HBV core IgM antibody may also remain elevated for extended periods after an acute bout of infection. Clinical correlation required. Performed By: #### 1 6933-4, 00613-4, 5195-3, 03817-4, 93589-9 ####[facility] LABCLIA [id number] [place] [address] [place] HBV surface Ab Ql (S)on HBV surface Ab Qn (S) <8.00 Normal [facility] Comment on above: Order Comment: Speci men Type: BLOOD SPECIMENOrdering Facility: [facility] Address: [address] [place] [address] Result Comment: <8 m IU/mL: No serological evidence of immunity to Hepatitis B Virus.>/= 8 to <12 mIU/mL: No serological evidence of immunity to Hepatitis B Virus.>/= 12 mIU/mL: Consistent with serological evidence of immunity to Hepatitis B Virus. Performed By: #### 1 6933-4, 09459-2, 5195-3, 18842-9, 14060-5 ####[facility] LABIA [id number] [place] [address] [place] HBV surface Ab Ser Qlon HBV surface Ab Ql (S) Negative Normal [facility] Comment on above: Order Comment: Speci men Type: BLOOD SPECIMENOrdering Facility: [facility] Address: [address] [place] [address] Result Comment: No s erological evidence of immunity to Hepatitis B Virus. Performed By: #### 1 6933-4, 21474-8, 5195-3, 61878-5, 73709-9 ####[facility] LABIA [id number] [place] [address] [place] HBV surface Ag Ser Qlon HBV surface Ag Ql (S) Negative Normal Negative [facility] Comment on above: Order Comment: Speci men Type: BLOOD SPECIMENOrdering Facility: [facility] Address: [address] [place] [address] Performed By: #### 1 6933-4, 39965-5, 5195-3, 55602-0, 15525-0 ####[facility] LABIA [id number] [place] [address] [place] CNPNon 01-05-2025 CNPN Normal [facility] Absolute neutrophil countOrd ered By: Lorraine Springer on 01-04-2025 Neutrophils (Bld) [#/Vol] 8.8 10*3/uL High 2.0-7.7 [facility] Basophil percentageOrdered B y: Lorraine Gonzalezrenny on 01-04-2025 Basophils/100 WBC (Bld) 0.3 % 0-1 [facility] CBC W/Diff, Automatedon 12-12 Absolute Lymph 2.29 X10 3/uL Normal 0.83-4.51 [facility] Comment on above: Performed By: #### L 100.0100 #### [facility] [address] [place], [address] Absolute Neut 8.8 X10 3/uL High 2.0-7.7 [facility] Comment on above: Performed By: #### L 100.0100 #### [facility] [address] [place], [address] Basophils/100 WBC (Bld) 0.3 % Normal 0-1 [facility] Comment on above: Performed By: #### L 100.0100 #### [facility] [address] [place], [address] Eosinophils/100 WBC (Bld) 0.2 % Normal 0-5 [facility] Comment on above: Performed By: #### L 100.0100 #### [facility] [address] [place], [address] Erythrocyte distribution width (RBC) [Ratio] 13.9 % Normal 11.6-14.6 [facility] Comment on above: Performed By: #### L 100.0100 #### [facility] [address] [place], [address] Hematocrit (Bld) [Volume fraction] 39.5 % Normal 37-47 [facility] Comment on above: Performed By: #### L 100.0100 #### [facility] [address] [place], [address] Hemoglobin (Bld) [Mass/Vol] 13.1 g/dL Normal 12.0-15.0 [facility] Comment on above: Performed By: #### L 100.0100 #### [facility] [address] [place], [address] IG% 0.700 Normal 0.0-0.9 [facility] Comment on above: Result Comment: IG% - Immature Granulocytes (promyelocytes, myelocytes and metamyelocytes) > 1% indicates that a LEFT SHIFT is Present. Performed By: #### L 100.0100 #### [facility] [address] [place], [address] Lymphocytes/100 WBC (Bld) 19.0 % Normal 19-41 [facility] Comment on above: Performed By: #### L 100.0100 #### [facility] [address] [place], [address] MCH (RBC) [Entitic mass] 29.1 pg Normal 27.0-32.0 [facility] Comment on above: Performed By: #### L 100.0100 #### [facility] [address] [place], [address] MCHC (RBC) [Mass/Vol] 33.2 g/dL Normal 32-36 [facility] Comment on above: Performed By: #### L 100.0100 #### [facility] [address] [place], [address] MCV (RBC) [Entitic vol] 87.8 fL Normal 81-99 [facility] Comment on above: Performed By: #### L 100.0100 #### [facility] [address] [place], [address] Monocytes/100 WBC (Bld) 6.5 % Normal 0-10 [facility] Comment on above: Performed By: #### L 100.0100 #### [facility] [address] [place], [address] Neutrophils/100 WBC (Bld) 73.3 % High 47-70 [facility] Comment on above: Performed By: #### L 100.0100 #### [facility] [address] [place], [address] Nucleated RBC (Bld) [#/Vol] 0 10*3/uL Normal 0-5 [facility] Comment on above: Performed By: #### L 100.0100 #### [facility] [address] [place], [address] Platelet mean volume (Bld) [Entitic vol] 10.1 fL Normal 6.2-12.0 [facility] Comment on above: Performed By: #### L 100.0100 #### [facility] [address] [place], [address] Platelets (Bld) [#/Vol] 195 10*3/uL Normal 150-450 [facility] Comment on above: Performed By: #### L 100.0100 #### [facility] [address] [place], [address] RBC (Bld) [#/Vol] 4.50 10*6/uL Normal 4.2-5.4 [facility] Comment on above: Performed By: #### L 100.0100 #### [facility] [address] [place], [address] RDW SD 44.7 fl High 35.1-43.9 [facility] Comment on above: Performed By: #### L 100.0100 #### [facility] [address] [place], [address] WBC (Bld) [#/Vol] 12.1 10*3/uL High 4.4-11.0 [facility] Comment on above: Performed By: #### L 100.0100 #### [facility] [address] [place], [address] CNPNon 01-04-2025 CNPN Normal [facility] Eosinophil percentageOrdered By: Lorraine Springer on 01-04-2025 Eosinophils/100 WBC (Bld) 0.2 % 0-5 [facility] Erythrocyte distribution wid th ratioOrdered By: [facility] Springer on 01-04-2025 Erythrocyte distribution width (RBC) [Ratio] 13.9 % 11.6-14.6 [facility] Erythrocyte distribution wid th standard deviationOrdered By: [facility] Hospitald[facility] Springer on 01-04-2025 Erythrocyte distribution width (RBC) [Entitic vol] 44.7 fL High 35.1-43.9 [facility] Hematocrit Auto (Bld) [Volum e fraction]Ordered By: Lorraine Springer on 01-04-2025 Hematocrit (Bld) [Volume fraction] 39.5 % 37-47 [facility] Hemoglobin measurementOrdere d By: [facility] Hospital[facility] Springer on 01-04-2025 Hemoglobin (Bld) [Mass/Vol] 13.1 g/dL 12.0-15.0 [facility] Immature granulocytes/100 WB C Auto (Bld)Ordered By: Lorraine Springer on 01-04-2025 Immature granulocytes/100 WBC (Bld) 0.700 % 0.0-0.9 [facility] Comment on above: IG% - Immature Granu locytes (promyelocytes, myelocytes and metamyelocytes) > 1% indicates that a LEFT SHIFT is Present. Lymphocytes Auto (Unsp spec) [#/Vol]Ordered By: Lorraine Springer on 01-04-2025 Lymphocytes (Bld) [#/Vol] 2.29 10*3/uL 0.83-4.51 [facility] Lymphocytes/100 WBC Auto (Un sp spec)Ordered By: Lorraine Springer on 01-04-2025 Lymphocytes/100 WBC (Bld) 19.0 % 19-41 [facility] MCV (mean corpuscular volume ) determinationOrdered By: Lorraine Springer on 01-04-2025 MCV (RBC) [Entitic vol] 87.8 fL 81-99 [facility] Mean corpuscular hemoglobin (MCH) determinationOrdered By: Lorraine Springer on 01-04-2025 MCH (RBC) [Entitic mass] 29.1 pg 27.0-32.0 [facility] Mean corpuscular hemoglobin concentration (MCHC) determinationOrdered By: Lorraine Springer on 01-04-2025 MCHC (RBC) [Mass/Vol] 33.2 g/dL 32-36 [facility] Mean platelet volume determi nationOrdered By: Lorraine Springer on 01-04-2025 Platelet mean volume (Bld) [Entitic vol] 10.1 fL 6.2-12.0 [facility] Monocyte percentageOrdered B y: Lorraine Springer on 01-04-2025 Monocytes/100 WBC (Bld) 6.5 % 0-10 [facility] Neutrophil percentageOrdered By: Lorraine Springer on 01-04-2025 Neutrophils/100 WBC (Bld) 73.3 % High 47-70 [facility] Nucleated red blood cell per centageOrdered By: Lorraine Springer on 01-04-2025 Nucleated RBC/100 WBC (Bld) [Ratio] 0 % 0-5 [facility] Platelet countOrdered By: Anastacia Springer on 01-04-2025 Platelets (Bld) [#/Vol] 195 10*3/uL 150-450 [facility] RBC Auto (Bld) [#/Vol]Ordere d By: Lorraine Springer on 01-04-2025 RBC (Bld) [#/Vol] 4.50 10*6/uL 4.2-5.4 [facility] White blood cell (WBC) count Ordered By: Lorraine Springer on 01-04-2025 WBC (Bld) [#/Vol] 12.1 10*3/uL High 4.4-11.0 [facility] Basic metabolic 2000 panelon 01-03-2025 Anion gap [Moles/Vol] 12 mmol/L Normal 8-15 [facility] Comment on above: Order Comment: Speci men Type: BLOOD SPECIMENOrdering Facility: [facility] Address: [address] [place] [address] Performed By: #### 2 4321-2 ####[facility] LABCLIA [id number] [address] [place] [address] [place] Calcium [Mass/Vol] 9.4 mg/dL Normal 8.5-10.2 [facility] Comment on above: Order Comment: Speci men Type: BLOOD SPECIMENOrdering Facility: [facility] Address: [address] [place], [place] [address] Performed By: #### 2 4321-2 ####[facility] LABCLIA [id number] [address] [address] [place] Chloride [Moles/Vol] 93 mmol/L Low 98-107 [facility] Comment on above: Order Comment: Speci men Type: BLOOD SPECIMENOrdering Facility: [facility] Address: [address] [place], [place] [address] Performed By: #### 2 4321-2 ####[facility] LABCLIA [id number] [address] [address] [place] CO2 [Moles/Vol] 21 mmol/L Low 22-30 [facility] Comment on above: Order Comment: Speci men Type: BLOOD SPECIMENOrdering Facility: [facility] Address: [address] [place], [place] [address] Performed By: #### 2 4321-2 ####[facility] LABCLIA [id number] [address] [address] [place] Creatinine [Mass/Vol] 0.46 mg/dL Low 0.58-0.96 [facility] Comment on above: Order Comment: Speci men Type: BLOOD SPECIMENOrdering Facility: [facility] Address: [address] [place] [address] Performed By: #### 2 4321-2 ####[facility] LABCLIA [id number] [place] [address] [place] Creatinine and Glomerular filtration rate.predicted panel (S/P/Bld) 109 mL/min/1.73m??? Normal >=60 [facility] Comment on above: Order Comment: Rand gonzalez Type: BLOOD SPECIMENOrdering Facility: [facility] Address: [address] [place] [address] Result Comment: Gia mated Glomerular Filtration Rate (eGFR) is calculated using the 2020 CKD-EPI creatinine equation. This equation utilizes serum creatinine, sex, and age as parameters. The creatinine assay has traceable calibration to isotope dilution-mass spectrometry. Refer to KDIGO guidelines for clinical interpretation. In patients with unstable renal function, e.g. those with acute kidney injury, the eGFR may not accurately reflect actual GFR. Performed By: #### 2 4321-2 ####[facility] LABIA [id number] [place] [address] [place] Glucose [Mass/Vol] 142 mg/dL High 74-99 [facility] Comment on above: Order Comment: Rand gonzalez Type: BLOOD SPECIMENOrdering Facility: [facility] Address: [address] [place] [address] Result Comment: The [place] [employer] (ADA) provides guidance for cutoff values for fasting glucose and random glucose. The ADA defines fasting as no caloric intake for at least 8 hours. Fasting plasma glucose results between 100 to 125 mg/dL indicate increased risk for diabetes (prediabetes).Fasting plasma glucose results greater than or equal to 126 mg/dL meet the criteria for diagnosis of diabetes. In the absence of unequivocal hyperglycemia, results should be confirmed by repeat testing. In a patient with classic symptoms of hyperglycemia or hyperglycemic crisis, random plasma glucose results greater than or equal to 200 mg/dL meet the criteria for diagnosis of diabetes.Reference: Standards of Medical Care in Diabetes 2016, [place] [employer]. Diabetes Care. 2016.39(Suppl 1). Performed By: #### 2 4321-2 ####[facility] LABCLIA [id number] [place] [id number] [place] Potassium [Moles/Vol] 4.6 mmol/L Normal 3.7-5.1 [facility] Comment on above: Order Comment: Speci men Type: BLOOD SPECIMENOrdering Facility: [facility] Address: [address] [place] [address] Performed By: #### 2 4321-2 ####[facility] LABCLIA [id number] [place] [address] [place] Sodium [Moles/Vol] 126 mmol/L Low 136-144 [facility] Comment on above: Order Comment: Speci men Type: BLOOD SPECIMENOrdering Facility: [facility] Address: [address] [place] [address] Performed By: #### 2 4321-2 ####[facility] LABIA [id number] [place] [address] [place] Urea nitrogen [Mass/Vol] 12 mg/dL Normal 7-21 [facility] Comment on above: Order Comment: Speci men Type: BLOOD SPECIMENOrdering Facility: [facility] Address: [address] [place] [address] Performed By: #### 2 4321-2 ####[facility] LABCLIA [id number] [place] [address] [place] CBC W Auto Differential pane l (Bld)on 01-03-2025 Basophils (Bld) [#/Vol] 0.06 10*3/uL Normal <0.11 [facility] Comment on above: Order Comment: Speci men Type: BLOOD SPECIMENOrdering Facility: [facility] Address: [address] [place] [address] Performed By: #### 5 7021-8 ####[facility] LABCLIA [id number] [place] [address] [place] Basophils/100 WBC (Bld) 0.6 % Normal [facility] Comment on above: Order Comment: Speci men Type: BLOOD SPECIMENOrdering Facility: [facility] Address: [address] [place] [address] Performed By: #### 5 7021-8 ####[facility] LABCLIA [id number] [place] [address] [place] Differential cell count method Nom (Bld) Auto Normal [facility] Comment on above: Order Comment: Speci men Type: BLOOD SPECIMENOrdering Facility: [facility] Address: [address] [place] [address] Performed By: #### 5 7021-8 ####[facility] LABCLIA [id number] [place] [address] [place] Eosinophils (Bld) [#/Vol] 0.03 10*3/uL Normal <0.46 [facility] Comment on above: Order Comment: Speci men Type: BLOOD SPECIMENOrdering Facility: [facility] Address: [address] [place] [address] Performed By: #### 5 7021-8 ####[facility] LABCLIA [id number] [place] [address] [place] Eosinophils/100 WBC (Bld) 0.3 % Normal [facility] Comment on above: Order Comment: Speci men Type: BLOOD SPECIMENOrdering Facility: [facility] Address: [address] [place] [address] Performed By: #### 5 7021-8 ####[facility] LABCLIA [id number] [place] [address] [place] Erythrocyte distribution width (RBC) [Ratio] 14.2 % Normal 11.5-15.0 [facility] Comment on above: Order Comment: Speci men Type: BLOOD SPECIMENOrdering Facility: [facility] Address: [address] [place] [address] Performed By: #### 5 7021-8 ####[facility] LABIA [id number] [place] [address] [place] Hematocrit (Bld) [Volume fraction] 42.2 % Normal 36.0-46.0 [facility] Comment on above: Order Comment: Speci men Type: BLOOD SPECIMENOrdering Facility: [facility] Address: [address] [place] [address] Performed By: #### 5 7021-8 ####[facility] LABCLIA [id number] [place] [address] [place] Hemoglobin (Bld) [Mass/Vol] 13.5 g/dL Normal 11.5-15.5 [facility] Comment on above: Order Comment: Speci men Type: BLOOD SPECIMENOrdering Facility: [facility] Address: [address] [place] [address] Performed By: #### 5 7021-8 ####[facility] LABCLIA [id number] [place] [address] [place] Immature granulocytes (Bld) [#/Vol] 0.08 10*3/uL Normal <0.10 [facility] Comment on above: Order Comment: Speci men Type: BLOOD SPECIMENOrdering Facility: [facility] Address: [address] [place] [address] Performed By: #### 5 7021-8 ####[facility] LABCLIA [id number] [place] [address] [place] Immature granulocytes/100 WBC (Bld) 0.8 % Normal [facility] Comment on above: Order Comment: Speci men Type: BLOOD SPECIMENOrdering Facility: [facility] Address: [address] [place] [address] Performed By: #### 5 7021-8 ####[facility] LABCLIA [id number] [place] [address] [place] Lymphocytes (Bld) [#/Vol] 2.24 10*3/uL Normal 1.00-4.00 [facility] Comment on above: Order Comment: Speci men Type: BLOOD SPECIMENOrdering Facility: [facility] Address: [address] [place] [address] Performed By: #### 5 7021-8 ####[facility] LABIA [id number] [place] [address] [place] Lymphocytes/100 WBC (Bld) 21.2 % Normal [facility] Comment on above: Order Comment: Speci men Type: BLOOD SPECIMENOrdering Facility: [facility] Address: [address] [place] [address] Performed By: #### 5 7021-8 ####[facility] LABIA [id number] [place] [address] [place] MCH (RBC) [Entitic mass] 29.0 pg Normal 26.0-34.0 [facility] Comment on above: Order Comment: Speci men Type: BLOOD SPECIMENOrdering Facility: [facility] Address: [address] [place] [address] Performed By: #### 5 7021-8 ####[facility] LABIA [id number] [place] [address] [place] MCHC (RBC) [Mass/Vol] 32.0 g/dL Normal 30.5-36.0 [facility] Comment on above: Order Comment: Speci men Type: BLOOD SPECIMENOrdering Facility: [facility] Address: [address] [place] [address] Performed By: #### 5 7021-8 ####[facility] LABCLIA [id number] [place] [address] [place] MCV (RBC) [Entitic vol] 90.6 fL Normal 80.0-100.0 C [facility] Comment on above: Order Comment: Speci men Type: BLOOD SPECIMENOrdering Facility: [facility] Address: [address] [place] [address] Performed By: #### 5 7021-8 ####[facility] LABCLIA [id number] [address] [place] [address] [place] Monocytes (Bld) [#/Vol] 0.84 10*3/uL Normal <0.87 [facility] Comment on above: Order Comment: Speci men Type: BLOOD SPECIMENOrdering Facility: [facility] Address: [address] [place] [address] Performed By: #### 5 7021-8 ####[facility] LABCLIA [id number] [address] [place] [address] [place] Monocytes/100 WBC (Bld) 7.9 % Normal [facility] Comment on above: Order Comment: Speci men Type: BLOOD SPECIMENOrdering Facility: [facility] Address: [address] [place] [address] Performed By: #### 5 7021-8 ####[facility] LABCLIA [id number] [address], [place] [address] [place] Neutrophils (Bld) [#/Vol] 7.33 10*3/uL Normal 1.45-7.50 [facility] Comment on above: Order Comment: Speci men Type: BLOOD SPECIMENOrdering Facility: [facility] Address: [address] [place] [address] Performed By: #### 5 7021-8 ####[facility] LABCLIA [id number] [address], [facility] [place] Neutrophils/100 WBC (Bld) 69.2 % Normal [facility] Comment on above: Order Comment: Speci men Type: BLOOD SPECIMENOrdering Facility: [facility] Address: [address] [place] [address] Performed By: #### 5 7021-8 ####[facility] LABCLIA [id number] [address] [place] [address] [place] Nucleated RBC (Bld) [#/Vol] 10*3/uL Normal <0.01 [facility] Comment on above: Order Comment: Speci men Type: BLOOD SPECIMENOrdering Facility: [facility] Address: [address] [place] [address] Performed By: #### 5 7021-8 ####[facility] LABIA [id number] [place] [address] [place] Nucleated RBC/100 WBC (Bld) [Ratio] 0.0 /100 WBC Normal [facility] Comment on above: Order Comment: Speci men Type: BLOOD SPECIMENOrdering Facility: [facility] Address: [address] [place] [address] Performed By: #### 5 7021-8 ####[facility] LABIA [id number] [place] [address] [place] Platelet mean volume (Bld) [Entitic vol] 11.0 fL Normal 9.0-12.7 [facility] Comment on above: Order Comment: Speci men Type: BLOOD SPECIMENOrdering Facility: [facility] Address: [address] [place] [address] Performed By: #### 5 7021-8 ####[facility] LABIA [id number] [place] [address] [place] Platelets (Bld) [#/Vol] 177 10*3/uL Normal 150-400 [facility] Comment on above: Order Comment: Speci men Type: BLOOD SPECIMENOrdering Facility: [facility] Address: [address] [place] [address] Performed By: #### 5 7021-8 ####[facility] LABIA [id number] [address] [address] [place] RBC (Bld) [#/Vol] 4.66 10*6/uL Normal 3.90-5.20 [facility] Comment on above: Order Comment: Speci men Type: BLOOD SPECIMENOrdering Facility: [facility] Address: [address] [place] [address] Performed By: #### 5 7021-8 ####[facility] LABIA [id number] [place] [address] [place] WBC (Bld) [#/Vol] 10.58 10*3/uL Normal 3.70-11.00 [facility] Comment on above: Order Comment: Speci men Type: BLOOD SPECIMENOrdering Facility: [facility] Address: [address] [place] [address] Performed By: #### 5 7021-8 ####[facility] [id number] [place] [address] [place] CNCOon 01-03-2025 CNCO Letter Text Normal [facility] CNPTOUTREACHon 01-03-2025 CNPTOUTREACH Normal [facility] HBV DNA Qn (S)on 01-03-2025 HBV DNA LUIS M+probe Ql Not detected Normal Not detected [facility] Comment on above: Order Comment: Speci [facility] Type: BLOOD SPECIMENOrdering Facility: [facility] Address: [address] [place] [address] Performed By: #### 1 1258-1 ####[facility] [id number] [place] [address] [place] HBV core Ab Ser Qlon 025 HBV core Ab Ql (S) Negative Normal Negative [facility] Comment on above: Order Comment: [facility] Type: BLOOD SPECIMENOrdering Facility: [facility] Address: [address] [place] [address] Result Comment: No e vidence of current or past infection with Hepatitis B virus. Should recent infection be suspected, repeat testing may be considered 3-4 weeks after this draw. Performed By: #### 3 1204-1, 5195-3, 70519-9, 91682-9 ####[facility] LABIA [id number] [place] [address] [place] HBV core IgM Ser Qlon 2024 HBV core IgM Ql (S) Positive Abnormal Negative [facility] Comment on above: Order Comment: Rand gonzalez Type: BLOOD SPECIMENOrdering Facility: [facility] Address: [address] [place] [address] Result Comment: The result suggests recent acute infection with Hepatitis B virus. Non-specific reactivity is not uncommon with this test. HBV core IgM antibody may also remain elevated for extended periods after an acute bout of infection. Clinical correlation required. Performed By: #### 3 1204-1, 5195-3, 39031-1, 36607-9 ####[facility] LABCLIA [id number] [place] [address] [place] HBV e Ag SerPl Ql IAon 01-03 HBV e Ag IA Ql Negative Normal Negative [facility] Comment on above: Order Comment: Rand gonzalez Type: BLOOD SPECIMENOrdering Facility: [facility] Address: [address] [place] [address] Performed By: #### 1 3954-3, AHBE ####[facility] LABCLIA [id number] [place] [address] [place] HBV surface Ab Ql (S)on 12-12 HBV surface Ab Qn (S) <8.00 Normal [facility] Comment on above: Order Comment: Rand gonzalez Type: BLOOD SPECIMENOrdering Facility: [facility] Address: [address] [place] [address] Result Comment: <8 m IU/mL: No serological evidence of immunity to Hepatitis B Virus.>/= 8 to <12 mIU/mL: No serological evidence of immunity to Hepatitis B Virus.>/= 12 mIU/mL: Consistent with serological evidence of immunity to Hepatitis B Virus. Performed By: #### 3 1204-1, 5195-3, 86484-9, 05252-9 ####[facility] LABCLIA [id number] [place] [address] [place] HBV surface Ab Ser Qlon 12-12 HBV surface Ab Ql (S) Negative Normal [facility] Comment on above: Order Comment: Speci men Type: BLOOD SPECIMENOrdering Facility: [facility] Address: [address] [place] [address] Result Comment: No s erological evidence of immunity to Hepatitis B Virus. Performed By: #### 3 1204-1, 5195-3, 56335-3, 62038-3 ####[facility] LABCLIA [id number] [place] [address] [place] HBV surface Ag Ser Qlon 12-12 HBV surface Ag Ql (S) Negative Normal Negative [facility] Comment on above: Order Comment: Speci men Type: BLOOD SPECIMENOrdering Facility: [facility] Address: [address] [place] [address] Performed By: #### 3 1204-1, 5195-3, 57723-5, 36364-8 ####[facility] LABIA [id number] [place] [address] [place] HEP BE ANTIBODYon 01-03-2025 HBV e Ab IA Ql Negative Normal Negative [facility] Comment on above: Order Comment: Andreii [facility] Type: BLOOD SPECIMENOrdering Facility: [facility] Address: [address] [place] [address] Result Comment: This test should only be used in patients with a previously known and/or concurrent positive HBsAG result. Along with HBeAG test, Hepatitis B e antibody test is used for monitoring the natural history of Hepatitis B virus infection and prognostication. Clinical correlation is required. Performed By: #### 1 3954-3, AHBE ####[facility] LABCLIA [id number] [place] [id number] [place] CNPNon 12-30-2024 CNPN Normal [facility] CNPTOUTREACHon 12-30-2024 CNPTOUTREACH Normal [facility] Basic metabolic 2000 panelon 12-28-2024 Anion gap [Moles/Vol] 15 mmol/L Normal 8-15 [facility] Comment on above: Order Comment: Speci men Type: BLOOD SPECIMENOrdering Facility: [facility] Address: [address] [place] [id number] Performed By: #### 2 4325-3, 34759-5 ####[facility] LABCLIA [id number] [address] [address] [place] Calcium [Mass/Vol] 9.3 mg/dL Normal 8.5-10.2 [facility] Comment on above: Order Comment: Speci men Type: BLOOD SPECIMENOrdering Facility: [facility] Address: [address] [place], [place] [address] Performed By: #### 2 4324-3, 23085-8 ####[facility] LABCLIA [id number] [place] [address] [place] Chloride [Moles/Vol] 94 mmol/L Low 98-107 [facility] Comment on above: Order Comment: Speci men Type: BLOOD SPECIMENOrdering Facility: [facility] Address: [address] [place], [place] [address] Performed By: #### 2 3, 94681-7 ####[facility] LABIA [id number] [place] [address] [place] CO2 [Moles/Vol] 20 mmol/L Low 22-30 [facility] Comment on above: Order Comment: Speci men Type: BLOOD SPECIMENOrdering Facility: [facility] Address: [address] [place], [place] [address] Performed By: #### 2 4324-3, 79696-2 ####[facility] LABCLIA [id number] [place] [id number] [place] Creatinine [Mass/Vol] 0.52 mg/dL Low 0.58-0.96 [facility] Comment on above: Order Comment: Speci men Type: BLOOD SPECIMENOrdering Facility: [facility] Address: [address] [place], [place] [address] Performed By: #### 2 4324-3, 58503-2 ####[facility] LABCLIA [id number] [place] [address] [place] Creatinine and Glomerular filtration rate.predicted panel (S/P/Bld) 106 mL/min/1.73m??? Normal >=60 [facility] Comment on above: Order Comment: Speci men Type: BLOOD SPECIMENOrdering Facility: [facility] Address: [address] [place] [address] Result Comment: Gia mated Glomerular Filtration Rate (eGFR) is calculated using the 2020 CKD-EPI creatinine equation. This equation utilizes serum creatinine, sex, and age as parameters. The creatinine assay has traceable calibration to isotope dilution-mass spectrometry. Refer to KDIGO guidelines for clinical interpretation. In patients with unstable renal function, e.g. those with acute kidney injury, the eGFR may not accurately reflect actual GFR. Performed By: #### 2 4325-3, 59471-3 ####[facility] LABIA [id number] [place] [address] [place] Glucose [Mass/Vol] 196 mg/dL High 74-99 [facility] Comment on above: Order Comment: Rand gonzalez Type: BLOOD SPECIMENOrdering Facility: [facility] Address: [address] [place] [address] Result Comment: The [place] [employer] (ADA) provides guidance for cutoff values for fasting glucose and random glucose. The ADA defines fasting as no caloric intake for at least 8 hours. Fasting plasma glucose results between 100 to 125 mg/dL indicate increased risk for diabetes (prediabetes).Fasting plasma glucose results greater than or equal to 126 mg/dL meet the criteria for diagnosis of diabetes. In the absence of unequivocal hyperglycemia, results should be confirmed by repeat testing. In a patient with classic symptoms of hyperglycemia or hyperglycemic crisis, random plasma glucose results greater than or equal to 200 mg/dL meet the criteria for diagnosis of diabetes.Reference: Standards of Medical Care in Diabetes 2016, [place] [employer]. Diabetes Care. 2016.39(Suppl 1). Performed By: #### 2 4325-3, 38460-7 ####[facility] LABCLIA [id number] [place] [address] [place] Potassium [Moles/Vol] 4.4 mmol/L Normal 3.7-5.1 [facility] Comment on above: Order Comment: Speci men Type: BLOOD SPECIMENOrdering Facility: [facility] Address: [address] [place] [address] Performed By: #### 2 4325-3, 08837-8 ####[facility] LABCLIA [id number] [place] [address] [place] Sodium [Moles/Vol] 129 mmol/L Low 136-144 [facility] Comment on above: Order Comment: Speci men Type: BLOOD SPECIMENOrdering Facility: [facility] Address: [address] [place] [address] Performed By: #### 2 4325-3, 33373-0 ####[facility] LABIA [id number] [place] [address] [place] Urea nitrogen [Mass/Vol] 13 mg/dL Normal 7-21 [facility] Comment on above: Order Comment: Speci men Type: BLOOD SPECIMENOrdering Facility: [facility] Address: [address] [place] [address] Performed By: #### 2 4325-3, 90113-2 ####[facility] LABCLIA [id number] [place] [address] [place] CBC W Auto Differential pane l (Bld)on 12-28-2024 Basophils (Bld) [#/Vol] 0.07 10*3/uL Normal <0.11 [facility] Comment on above: Order Comment: Speci men Type: BLOOD SPECIMENOrdering Facility: [facility] Address: [address] [place] [address] Performed By: #### 5 7021-8 ####[facility] LABCLIA [id number] [place] [address] [place] Basophils/100 WBC (Bld) 0.6 % Normal [facility] Comment on above: Order Comment: Speci men Type: BLOOD SPECIMENOrdering Facility: [facility] Address: [address] [place] [address] Performed By: #### 5 7021-8 ####[facility] LABCLIA [id number] [place] [address] [place] Differential cell count method Nom (Bld) Auto Normal [facility] Comment on above: Order Comment: Speci men Type: BLOOD SPECIMENOrdering Facility: [facility] Address: [address] [place] [address] Performed By: #### 5 7021-8 ####[facility] LABCLIA [id number] [place] [address] [place] Eosinophils (Bld) [#/Vol] 0.03 10*3/uL Normal <0.46 [facility] Comment on above: Order Comment: Speci men Type: BLOOD SPECIMENOrdering Facility: [facility] Address: [address] [place] [address] Performed By: #### 5 7021-8 ####[facility] LABCLIA [id number] [address] [place] Eosinophils/100 WBC (Bld) 0.3 % Normal [facility] Comment on above: Order Comment: Speci men Type: BLOOD SPECIMENOrdering Facility: [facility] Address: [address] [place] [address] Performed By: #### 5 7021-8 ####[facility] LABCLIA [id number] [place] [address] [place] Erythrocyte distribution width (RBC) [Ratio] 14.1 % Normal 11.5-15.0 [facility] Comment on above: Order Comment: Speci men Type: BLOOD SPECIMENOrdering Facility: [facility] Address: [address] [place] [address] Performed By: #### 5 7021-8 ####[facility] LABCLIA [id number] [place] [address] [place] Hematocrit (Bld) [Volume fraction] 42.9 % Normal 36.0-46.0 [facility] Comment on above: Order Comment: Speci men Type: BLOOD SPECIMENOrdering Facility: [facility] Address: [address] [place] [address] Performed By: #### 5 7021-8 ####[facility] LABIA [id number] [place] [address] [place] Hemoglobin (Bld) [Mass/Vol] 14.1 g/dL Normal 11.5-15.5 [facility] Comment on above: Order Comment: Speci men Type: BLOOD SPECIMENOrdering Facility: [facility] Address: [address] [place] [address] Performed By: #### 5 7021-8 ####[facility] LABIA [id number] [place] [address] [place] Immature granulocytes (Bld) [#/Vol] 0.12 10*3/uL High <0.10 [facility] Comment on above: Order Comment: Speci men Type: BLOOD SPECIMENOrdering Facility: [facility] Address: [address] [place] [address] Performed By: #### 5 7021-8 ####[facility] LABIA [id number] [place] [address] [place] Immature granulocytes/100 WBC (Bld) 1.0 % Normal [facility] Comment on above: Order Comment: Speci men Type: BLOOD SPECIMENOrdering Facility: [facility] Address: [address] [place] [address] Performed By: #### 5 7021-8 ####[facility] LABIA [id number] [place] [address] [place] Lymphocytes (Bld) [#/Vol] 2.70 10*3/uL Normal 1.00-4.00 [facility] Comment on above: Order Comment: Speci men Type: BLOOD SPECIMENOrdering Facility: [facility] Address: [address] [place] [address] Performed By: #### 5 7021-8 ####[facility] LABIA [id number] [place] [address] [place] Lymphocytes/100 WBC (Bld) 23.1 % Normal [facility] Comment on above: Order Comment: Speci men Type: BLOOD SPECIMENOrdering Facility: [facility] Address: [address] [place] [address] Performed By: #### 5 7021-8 ####[facility] LABIA [id number] [place] [address] [place] MCH (RBC) [Entitic mass] 29.3 pg Normal 26.0-34.0 [facility] Comment on above: Order Comment: Speci men Type: BLOOD SPECIMENOrdering Facility: [facility] Address: [address] [place] [address] Performed By: #### 5 7021-8 ####[facility] LABIA [id number] [place] [address] [place] MCHC (RBC) [Mass/Vol] 32.9 g/dL Normal 30.5-36.0 [facility] Comment on above: Order Comment: Speci men Type: BLOOD SPECIMENOrdering Facility: [facility] Address: [address] [place] [address] Performed By: #### 5 7021-8 ####[facility] LABIA [id number] [place] [address] [place] MCV (RBC) [Entitic vol] 89.2 fL Normal 80.0-100.0 C [facility] Comment on above: Order Comment: Speci men Type: BLOOD SPECIMENOrdering Facility: [facility] Address: [address] [place] [address] Performed By: #### 5 7021-8 ####[facility] LABCLIA [id number] [address], [facility] [place] Monocytes (Bld) [#/Vol] 0.56 10*3/uL Normal <0.87 [facility] Comment on above: Order Comment: Speci men Type: BLOOD SPECIMENOrdering Facility: [facility] Address: [address] [place] [address] Performed By: #### 5 7021-8 ####[facility] LABCLIA [id number] [address], [place] [address] [place] Monocytes/100 WBC (Bld) 4.8 % Normal [facility] Comment on above: Order Comment: Speci men Type: BLOOD SPECIMENOrdering Facility: [facility] Address: [address] [place] [address] Performed By: #### 5 7021-8 ####[facility] LABCLIA [id number] [address], [facility] [place] Neutrophils (Bld) [#/Vol] 8.22 10*3/uL High 1.45-7.50 [facility] Comment on above: Order Comment: Speci men Type: BLOOD SPECIMENOrdering Facility: [facility] Address: [address] [place] [address] Performed By: #### 5 7021-8 ####[facility] LABCLIA [id number] [address], [facility] [place] Neutrophils/100 WBC (Bld) 70.2 % Normal [facility] Comment on above: Order Comment: Speci men Type: BLOOD SPECIMENOrdering Facility: [facility] Address: [address] [place] [address] Performed By: #### 5 7021-8 ####[facility] LABCLIA [id number] [address] [place] [address] [place] Nucleated RBC (Bld) [#/Vol] 10*3/uL Normal <0.01 [facility] Comment on above: Order Comment: Speci men Type: BLOOD SPECIMENOrdering Facility: [facility] Address: [address] [place] [address] Performed By: #### 5 7021-8 ####[facility] LABCLIA [id number] [place] [address] [place] Nucleated RBC/100 WBC (Bld) [Ratio] 0.0 /100 WBC Normal [facility] Comment on above: Order Comment: Speci men Type: BLOOD SPECIMENOrdering Facility: [facility] Address: [address] [place] [address] Performed By: #### 5 7021-8 ####[facility] LABCLIA [id number] [place] [address] [place] Platelet mean volume (Bld) [Entitic vol] 11.9 fL Normal 9.0-12.7 [facility] Comment on above: Order Comment: Speci men Type: BLOOD SPECIMENOrdering Facility: [facility] Address: [address] [place] [address] Performed By: #### 5 7021-8 ####[facility] LABIA [id number] [place] [address] [place] Platelets (Bld) [#/Vol] 144 10*3/uL Low 150-400 [facility] Comment on above: Order Comment: Speci men Type: BLOOD SPECIMENOrdering Facility: [facility] Address: [address] [place] [address] Performed By: #### 5 7021-8 ####[facility] LABCLIA [id number] [place] [address] [place] RBC (Bld) [#/Vol] 4.81 10*6/uL Normal 3.90-5.20 [facility] Comment on above: Order Comment: Speci men Type: BLOOD SPECIMENOrdering Facility: [facility] Address: [address] [place] [address] Performed By: #### 5 7021-8 ####[facility] LABCLIA [id number] [place] [address] [place] WBC (Bld) [#/Vol] 11.70 10*3/uL High 3.70-11.00 [facility] Comment on above: Order Comment: Speci men Type: BLOOD SPECIMENOrdering Facility: [facility] Address: [address] [place] [address] Performed By: #### 5 7021-8 ####[facility] LABCLIA [id number] [place] [address] [place] CNOVon 12-28-2024 CNOV Normal [facility] HAV IgM Ser Qlon 12-28-2024 HAV IgM Ql (S) Negative Normal Negative [facility] Comment on above: Order Comment: Speci [facility] Type: BLOOD SPECIMENOrdering Facility: [facility] Address: [address] [place] [address] Result Comment: No e vidence of recent infection with Hepatitis A virus. Performed By: #### 2 2314-9, 39785-4, 5194-12 ####[facility] LABCLIA [id number] [place] [address] [place] HBV core IgM Ser Qlon 2024 HBV core IgM Ql (S) Positive Abnormal Negative [facility] Comment on above: Order Comment: [facility] Type: BLOOD SPECIMENOrdering Facility: [facility] Address: [address] [place] [address] Result Comment: The result suggests recent acute infection with Hepatitis B virus. Non-specific reactivity is not uncommon with this test. HBV core IgM antibody may also remain elevated for extended periods after an acute bout of infection. Clinical correlation required. Performed By: #### 2 2314-9, 40240-4, 5194-3 ####[facility] LABCLIA [id number] [place] [id number] [place] HBV surface Ag Ser Qlon 12-11 HBV surface Ag Ql (S) Negative Normal Negative [facility] Comment on above: Order Comment: Speci men Type: BLOOD SPECIMENOrdering Facility: [facility] Address: [address] [place] [address] Performed By: #### 2 2314-9, 70967-3, 5195-3 ####[facility] LABCLIA [id number] [place] [id number] [place] HCV RNA LUIS M+probe Qnon 12-28 HCV RNA LUIS M+probe Ql Not detected Normal Not detected [facility] Comment on above: Order Comment: Speci men Type: BLOOD SPECIMENOrdering Facility: [facility] Address: [address] [place] [address] Performed By: #### 1 1011-4 ####[facility] LABCLIA [id number] [place] [id number] [place] Hepatic function 2000 panelo n 12-28-2024 Albumin [Mass/Vol] 4.3 g/dL Normal 3.9-4.9 [facility] Comment on above: Order Comment: Speci men Type: BLOOD SPECIMENOrdering Facility: [facility] Address: [address] [place] [address] Performed By: #### 2 4325-3, 87774-9 ####[facility] LABCLIA [id number] [place] [id number] [place] ALP [Catalytic activity/Vol] 123 U/L Normal 34-123 [facility] Comment on above: Order Comment: Speci men Type: BLOOD SPECIMENOrdering Facility: [facility] Address: [address] [place] [address] Performed By: #### 2 4325-3, 10354-3 ####[facility] LABCLIA [id number] [place] [id number] [place] ALT [Catalytic activity/Vol] 32 U/L Normal 7-38 [facility] Comment on above: Order Comment: Speci men Type: BLOOD SPECIMENOrdering Facility: [facility] Address: [address] [place] [address] Performed By: #### 2 4325-3, 93621-3 ####[facility] LABCLIA [id number] [place] [id number] [place] AST [Catalytic activity/Vol] 17 U/L Normal 13-35 [facility] Comment on above: Order Comment: Speci men Type: BLOOD SPECIMENOrdering Facility: [facility] Address: [address] [place] [address] Performed By: #### 2 4324-3, 69231-3 ####[facility] LABCLIA [id number] [place] [address] [place] Bilirubin [Mass/Vol] 0.2 mg/dL Normal 0.2-1.3 [facility] Comment on above: Order Comment: Speci men Type: BLOOD SPECIMENOrdering Facility: [facility] Address: [address] [place] [address] Performed By: #### 2 5-3, 32463-0 ####[facility] LABCLIA [id number] [place] [address] [place] Bilirubin.conjugated [Mass/Vol] mg/dL Normal <0.3 [facility] Comment on above: Order Comment: Speci men Type: BLOOD SPECIMENOrdering Facility: [facility] Address: [address] [place], [place] [address] Performed By: #### 2 4325-3, 12108-9 ####[facility] LABCLIA [id number] [place] [id number] [place] Protein [Mass/Vol] 7.5 g/dL Normal 6.3-8.0 [facility] Comment on above: Order Comment: Speci men Type: BLOOD SPECIMENOrdering Facility: [facility] Address: [address] [place] [address] Performed By: #### 2 4325-3, 13620-1 ####[facility] LABCLIA [id number] MARCELINOAlpesh STOCK [id number] [place], [place] [id number] [place] Culture, Blood (WB)on 2024 CUB Blood cultures x2, f rom two different sites No growth in 5 days. Normal [facility] Comment on above: Performed By: #### L 100.0100 #### [facility] [address] [place], [address] Performed By: #### L 500.4050, L501.4020, L501.2450, L100.0500 #### [facility] [address] [place], [address] Urine Cultureon 12-23-2024 URC Mixed Gram Pos Gram Neg Org Hope Count <1000 MIXC Mixed contaminants. Submit a new specimen if indicated. Normal [facility] Comment on above: Performed By: #### L 500.4050, L501.4020, L501.2450, L100.0500 #### [facility] [address] [place], [address] 12 Lead EKGon 12-21-2024 12 Lead EKG [facility] [address] [place] [address] 12 Lead EKG 12/21/24 0857 MR#: [id number] Acct: [id number] Name: BRENDA LE Rep #: [id number] : 1965 59 From: aGry Bose MD Attending Dr: Status: DEP ER Ordering Dr: Babak Garcia DO Date: 12/21/24 Location: ED Sex: F C Admitted: Test Reason : GENERAL Blood Pressure : */* mmHG Vent. Rate : 104 BPM Atrial Rate : 104 BPM P-R Int : 178 ms QRS Dur : 74 ms QT Int : 316 ms P-R-T Axes : 57 20 60 degrees QTcB Int : 415 ms Sinus tachycardia Low voltage QRS Septal infarct , age undetermined Abnormal ECG Confirmed by TAMMY SANDERS, GLORIA ([id number]), editor continuity and script CRISTAL OTT ([id number]) on 12/27/2024 11:14:51 AM Referred By: Confirmed By: GLORIA BOSE MD 12/27/24 1114 Date Gary Bose MD CC: ESEQUIEL Salmon; Dr. Babak Garcia, DO Signed Normal [facility] Absolute neutrophil countOrd ered By: Babak Garcia on 12-21-2024 Neutrophils (Bld) [#/Vol] 10.6 10*3/uL High 2.0-7.7 [facility] Anion gap in Serum or Plasma Ordered By: Babak Garcia on 12-21-2024 Anion gap [Moles/Vol] 11 mmol/L 5-15 [facility] Automated blood erythrocyte countOrdered By: Babak Garcia on 12-21-2024 RBC (Bld) [#/Vol] 4.30 10*6/uL Normal 4.2-5.4 [facility] Comment on above: Performed By: #### L 100.0100 #### [facility] [address] [place], [place], [id number] Automated blood hematocrit ( percentage)Ordered By: Babak Garcia on 12-21-2024 Hematocrit (Bld) [Volume fraction] 38.1 % Normal 37-47 [facility] Comment on above: Performed By: #### L 100.0100 #### [facility] [address] [place], [address] Automated lymphocyte count a s percentage of total leukocytesOrdered By: Babak Garcia on 12-21-2024 Lymphocytes/100 WBC (Bld) 8.6 % Low 19-41 [facility] Comment on above: Performed By: #### L 100.0100 #### [facility] [address] [place], [address] BUN/creatinine ratioOrdered By: Babak Garcia on 12-21-2024 Urea nitrogen/Creatinine [Mass ratio] 19.2 mg/mg 10-20 [facility] Basophil percentageOrdered B y: Bbaak Garcia on 12-21-2024 Basophils/100 WBC (Bld) 0.2 % Normal 0-1 [facility] Comment on above: Performed By: #### L 100.0100 #### [facility] [address] [place], [address] Bilirubin Test strip Ql (U)O rdered By: Babak Garcia on 12-21-2024 Bilirubin Ql (U) Negative Negative [facility] Bilirubin, totalOrdered By: Babak Garcia on 12-21-2024 Bilirubin [Mass/Vol] 0.29 mg/dL Normal 0.00-1.30 [facility] Comment on above: Performed By: #### L 100.0100 #### [facility] [address] [place], [address] Blood cultureOrdered By: Rogelio Garcia on 12-21-2024 Bacteria identified Cx Nom (Bld) No growth in 5 days. [facility] Bacteria identified Cx Nom (Bld) No growth in 5 days. [facility] CBC W/Diff, Automatedon 12-11 Absolute Lymph 1.06 X10 3/uL Normal 0.83-4.51 [facility] Comment on above: Performed By: #### L 100.0100 #### [facility] [address] [place], [address] Absolute Neut 10.6 X10 3/uL High 2.0-7.7 [facility] Comment on above: Performed By: #### L 100.0100 #### [facility] [address] [place], [address] IG% 0.400 Normal 0.0-0.9 [facility] Comment on above: Result Comment: IG% - Immature Granulocytes (promyelocytes, myelocytes and metamyelocytes) > 1% indicates that a LEFT SHIFT is Present. Performed By: #### L 100.0100 #### [facility] [address] [place], [address] Nucleated RBC (Bld) [#/Vol] 0 10*3/uL Normal 0-5 [facility] Comment on above: Performed By: #### L 100.0100 #### [facility] [address] [place], [address] RDW SD 46.4 fl High 35.1-43.9 [facility] Comment on above: Performed By: #### L 100.0100 #### [facility] [address] [place], [address] Absolute Lymph 1.05 X10 3/uL Normal 0.83-4.51 [facility] Comment on above: Result Comment: This specimen has been REJECTED due to Laboratory criteria: Contaminated/Leaked. juliocesar has been notified of need of recollection. 12/21/2457 Issac Moreno Performed By: #### L 501.4021 #### [facility] [address] [place], [address] Absolute Neut 10.3 X10 3/uL High 2.0-7.7 [facility] Comment on above: Result Comment: This specimen has been REJECTED due to Laboratory criteria: Contaminated/Leaked. rishabhilie has been notified of need of recollection. 12/21/2457 Issac Moreno Performed By: #### L 501.4021 #### [facility] [address] [place], [address] BASO# 0.05 X10 3/uL Normal [facility] Comment on above: Result Comment: This specimen has been REJECTED due to Laboratory criteria: Contaminated/Leaked. juliocesar has been notified of need of recollection. 12/21/2457 Issac L White Performed By: #### L 501.4021 #### [facility] [address] [place], [address] Basophils/100 WBC (Bld) 0.4 % Normal 0-1 [facility] Comment on above: Result Comment: This specimen has been REJECTED due to Laboratory criteria: Contaminated/Leaked. juliocesar has been notified of need of recollection. 12/21/24 0957 Issac Chawla White Performed By: #### L 501.4021 #### [facility] [address] [place], [address] EOS# 0.01 X10 3/uL Normal [facility] Comment on above: Result Comment: This specimen has been REJECTED due to Laboratory criteria: Contaminated/Leaked. juliocesar has been notified of need of recollection. 12/21/24956 Issac Chawla White Performed By: #### L 501.4021 #### [facility] [address] [place], [address] Erythrocyte distribution width (RBC) [Ratio] 14.4 % Normal 11.6-14.6 [facility] Comment on above: Result Comment: This specimen has been REJECTED due to Laboratory criteria: Contaminated/Leaked. juliocesar has been notified of need of recollection. 12/21/24956 Issac Chawla White Performed By: #### L 501.4021 #### [facility] [address] [place], [address] Hematocrit (Bld) [Volume fraction] 40.3 % Normal 37-47 [facility] Comment on above: Result Comment: This specimen has been REJECTED due to Laboratory criteria: Contaminated/Leaked. juliocesar has been notified of need of recollection. 12/21/24956 Issac Chawla White Performed By: #### L 501.4021 #### [facility] [address] [place], [address] Hemoglobin (Bld) [Mass/Vol] 13.3 g/dL Normal 12.0-15.0 [facility] Comment on above: Result Comment: This specimen has been REJECTED due to Laboratory criteria: Contaminated/Leaked. veronikae has been notified of need of recollection. 12/21/24 0957 Issac L White Performed By: #### L 501.4021 #### [facility] [address] [place], [address] IG# 0.070 X10 3/uL High 0.0-0.0 [facility] Comment on above: Result Comment: This specimen has been REJECTED due to Laboratory criteria: Contaminated/Leaked. l[place]ilie has been notified of need of recollection. 12/21/24956 Issac L White Performed By: #### L 501.4021 #### [facility] [address] [place], [address] IG% 0.600 Normal 0.0-0.9 [facility] Comment on above: Result Comment: This specimen has been REJECTED due to Laboratory criteria: Contaminated/Leaked. juliocesar has been notified of need of recollection. 12/21/24956 Issac L White IG% - Immature Granulocytes (promyelocytes, myelocytes and metamyelocytes) > 1% indicates that a LEFT SHIFT is Present. Performed By: #### L 501.4021 #### [facility] [address] [place], [address] LYMPH# 1.05 X10 3/ul Normal 0.83-4.51 [facility] Comment on above: Result Comment: This specimen has been REJECTED due to Laboratory criteria: Contaminated/Leaked. veronikae has been notified of need of recollection. 12/21/24956 Issac L White Performed By: #### L 501.4021 #### [facility] [address] [facility] [place], [address] Lymphocytes/100 WBC (Bld) 8.7 % Low 19-41 [facility] Comment on above: Result Comment: This specimen has been REJECTED due to Laboratory criteria: Contaminated/Leaked. juliocesar has been notified of need of recollection. 12/21/24956 Issac Chawla White Performed By: #### L 501.4021 #### [facility] [address] [place], [address] MCH (RBC) [Entitic mass] 29.2 pg Normal 27.0-32.0 [facility] Comment on above: Result Comment: This specimen has been REJECTED due to Laboratory criteria: Contaminated/Leaked. juliocesar has been notified of need of recollection. 12/21/24956 Issac Chawla White Performed By: #### L 501.4021 #### [facility] [address] [place], [address] MCHC (RBC) [Mass/Vol] 33.0 g/dL Normal 32-36 [facility] Comment on above: Result Comment: This specimen has been REJECTED due to Laboratory criteria: Contaminated/Leaked. juliocesar has been notified of need of recollection. 12/21/24956 Issac L White Performed By: #### L 501.4021 #### [facility] [address] [place], [address] MCV (RBC) [Entitic vol] 88.4 fL Normal 81-99 [facility] Comment on above: Result Comment: This specimen has been REJECTED due to Laboratory criteria: Contaminated/Leaked. juliocesar has been notified of need of recollection. 12/21/24956 Issac L White Performed By: #### L 501.4021 #### [facility] [address] [place], [address] MONO # 0.49 X10 3/uL Normal [facility] Comment on above: Result Comment: This specimen has been REJECTED due to Laboratory criteria: Contaminated/Leaked. juliocesar has been notified of need of recollection. 12/21/24956 Issac L White Performed By: #### L 501.4021 #### [facility] [address] [place], [address] Monocytes/100 WBC (Bld) 4.1 % Normal 0-10 [facility] Comment on above: Result Comment: This specimen has been REJECTED due to Laboratory criteria: Contaminated/Leaked. juliocesar has been notified of need of recollection. 12/21/24 0957 Issac L White Performed By: #### L 501.4021 #### [facility] [address] [place], [address] Neutrophil # 10.34 X10 3/uL High 2.7-7.7 [facility] Comment on above: Result Comment: This specimen has been REJECTED due to Laboratory criteria: Contaminated/Leaked. rishabhilie has been notified of need of recollection. 12/21/24 0957 Issac L White Performed By: #### L 501.4021 #### [facility] [address] [place], [address] Neutrophils/100 WBC (Bld) 86.1 % High 47-70 [facility] Comment on above: Result Comment: This specimen has been REJECTED due to Laboratory criteria: Contaminated/Leaked. [place] has been notified of need of recollection. 12/21/24956 Issac L White Performed By: #### L 501.4021 #### [facility] [address] [place], [place], [id number] Nucleated RBC (Bld) [#/Vol] 0 10*3/uL Normal 0-5 [facility] Comment on above: Result Comment: This specimen has been REJECTED due to Laboratory criteria: Contaminated/Leaked. [place]ilie has been notified of need of recollection. 12/21/2457 Issac L White Performed By: #### L 501.4021 #### [facility] [address] [place], [place], [id number] Platelet mean volume (Bld) [Entitic vol] 9.9 fL Normal 6.2-12.0 [facility] Comment on above: Result Comment: This specimen has been REJECTED due to Laboratory criteria: Contaminated/Leaked. rishabhilie has been notified of need of recollection. 03/09/06 957 Issac L White Performed By: #### L 501.4021 #### [facility] [address] [place], [address] Platelets (Bld) [#/Vol] 201 10*3/uL Normal 150-450 [facility] Comment on above: Result Comment: This specimen has been REJECTED due to Laboratory criteria: Contaminated/Leaked. [place]ie has been notified of need of recollection. 12/21/24956 Issac L White Performed By: #### L 501.4021 #### [facility] [address] [place], [address] RBC (Bld) [#/Vol] 4.56 10*6/uL Normal 4.2-5.4 [facility] Comment on above: Result Comment: This specimen has been REJECTED due to Laboratory criteria: Contaminated/Leaked. [place] has been notified of need of recollection. 12/21/24956 Issac L White Performed By: #### L 501.4021 #### [facility] [address] [place], [address] RDW SD 46.5 fl High 35.1-43.9 [facility] Comment on above: Result Comment: This specimen has been REJECTED due to Laboratory criteria: Contaminated/Leaked. [place]ilie has been notified of need of recollection. 12/21/24956 Issac L White Performed By: #### L 501.4021 #### [facility] [address] [place], [address] WBC (Bld) [#/Vol] 12.0 10*3/uL High 4.4-11.0 [facility] Comment on above: Result Comment: This specimen has been REJECTED due to Laboratory criteria: Contaminated/Leaked. [place]ilie has been notified of need of recollection. 12/21/24956 Issac L White Performed By: #### L 501.4021 #### [facility] [address] [place], [address] Carbon dioxide, total [Moles /volume] in Central venous bloodOrdered By: Babak Garcia on 12-21-2024 CO2 [Moles/Vol] 22.6 mmol/L Normal 21.0-32.0 [facility] Comment on above: Performed By: #### L 100.0100 #### [facility] [address] [place], [place], [address] Chest PA and Lateralon 12-21 Chest PA and Lateral [facility] [address] [place], [place] [address] Chest PA and Lateral MR#: [id number] Acct: [id number] Name: BRENDA LE Rep #: [id number] : 1965 F 59 From: Ana Lilia Carlos MD PCP: Shelia Salmon, MANAGER MAIL Status: REG ER Study: Chest PA and Lateral Date of Exam: 12/21/24 Exam# [id number] Ordering Dr: Babak Garcia DO EXAM: XR Chest, 2 Views CLINICAL INDICATION: SOB TECHNIQUE: Frontal and lateral views of the chest. COMPARISON: No relevant prior studies available. FINDINGS: LUNGS AND PLEURAL SPACES: Pulmonary venous congestion. No consolidation. No pneumothorax. HEART: Unremarkable. No cardiomegaly. MEDIASTINUM: Unremarkable. Normal mediastinal contour. BONES/JOINTS: Unremarkable. No acute fracture. RAD/Chest PA and Lateral IMPRESSION: Pulmonary venous congestion. Reading [facility] CC: MANAGER MAIL Shelia Salmon; Dr. 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 [place], [place], [address] Comprehensive Metabolic Prof ilon 12-21-2024 ALK PHOS 108 U/L High 35-104 [facility] Comment on above: Performed By: #### L 100.0100 #### [facility] [address] [place], [address] BUN/CRE 19.2 RATIO Normal 10-20 [facility] Comment on above: Performed By: #### L 100.0100 #### [facility] [address] [place], [address] ECRCL 127.81 ml/min Normal 50-250 [facility] Comment on above: Performed By: #### L 100.0100 #### [facility] [address] [place], [address] GAP 11 Normal 5-15 [facility] Comment on above: Performed By: #### L 100.0100 #### [facility] [address] [place], [address] GFR/1.73 sq M.predicted among non-blacks MDRD (S/P/Bld) [Vol rate/Area] 109 mL/min/{1.73_m2} Normal >60 [facility] Comment on above: Result Comment: mL/m in/1.73m2 CKD-EPI Creatinine Equation (2020) Performed By: #### L 100.0100 #### [facility] [address] [place], [address] T PROT 6.3 g/dL Normal 5.9-8.4 [facility] Comment on above: Performed By: #### L 100.0100 #### [facility] [address] [place], [address] ALB Normal 3.4-4.8 [facility] Comment on above: Result Comment: This specimen has been REJECTED due to Laboratory criteria: Contaminated/Leaked. juliocesar has been notified of need of recollection. 12/21/24 Linda Moreno Performed By: #### L 100.0100 #### [facility] [address] [place], [address] ALK PHOS Normal 35-104 [facility] Comment on above: Result Comment: This specimen has been REJECTED due to Laboratory criteria: Contaminated/Leaked. juliocesar has been notified of need of recollection. 12/21/24957 Issac Moreno Performed By: #### L 100.0100 #### [facility] [address] [place], [address] ALT Normal <=34 [facility] Comment on above: Result Comment: This specimen has been REJECTED due to Laboratory criteria: Contaminated/Leaked. juliocesar has been notified of need of recollection. 12/21/24957 Issac Chawla White Performed By: #### L 100.0100 #### [facility] [address] [place], [address] AST Normal <=31 [facility] Comment on above: Result Comment: This specimen has been REJECTED due to Laboratory criteria: Contaminated/Leaked. juliocesar has been notified of need of recollection. 12/21/24957 Issac Chawla White Performed By: #### L 100.0100 #### [facility] [address] [facility] [address] BUN Normal 4-19 [facility] Comment on above: Result Comment: This specimen has been REJECTED due to Laboratory criteria: Contaminated/Leaked. juliocesar has been notified of need of recollection. 12/21/24957 Issac Chawla White Performed By: #### L 100.0100 #### [facility] [address] [place], [address] BUN/CRE Normal 10-20 [facility] Comment on above: Result Comment: This specimen has been REJECTED due to Laboratory criteria: Contaminated/Leaked. juliocesar has been notified of need of recollection. 12/21/24957 Issac Chawla White Performed By: #### L 100.0100 #### [facility] [address] [place], [address] Calcium Normal 7.6-11.0 [facility] Comment on above: Result Comment: This specimen has been REJECTED due to Laboratory criteria: Contaminated/Leaked. juliocesar has been notified of need of recollection. 12/21/24957 Issac Chawla White Performed By: #### L 100.0100 #### [facility] [address] [place], [address] CL Normal 98-108 [facility] Comment on above: Result Comment: This specimen has been REJECTED due to Laboratory criteria: Contaminated/Leaked. rishabhyefrijaqueline has been notified of need of recollection. 12/21/24957 Issac Chawla White Performed By: #### L 100.0100 #### [facility] [address] [place], [address] CO2 Normal 21.0-32.0 [facility] Comment on above: Result Comment: This specimen has been REJECTED due to Laboratory criteria: Contaminated/Leaked. rishabhkathy has been notified of need of recollection. 12/21/24957 Issac Chawla White Performed By: #### L 100.0100 #### [facility] [address] [place], [address] CREAT,SERUM Normal 0.70-1.20 [facility] Comment on above: Result Comment: This specimen has been REJECTED due to Laboratory criteria: Contaminated/Leaked. juliocesar has been notified of need of recollection. 12/21/24957 Issac Chawla White Performed By: #### L 100.0100 #### [facility] [address] [place], [address] eGFR Normal >60 [facility] Comment on above: Result Comment: This specimen has been REJECTED due to Laboratory criteria: Contaminated/Leaked. juliocesar has been notified of need of recollection. 12/21/24957 Issac Chawla White Performed By: #### L 100.0100 #### [facility] [address] [place], [address] GAP Normal 5-15 [facility] Comment on above: Result Comment: This specimen has been REJECTED due to Laboratory criteria: Contaminated/Leaked. juliocesar has been notified of need of recollection. 12/21/24957 Issac Chawla White Performed By: #### L 100.0100 #### [facility] [address] [place], [address] GLU Normal 70-99 [facility] Comment on above: Result Comment: This specimen has been REJECTED due to Laboratory criteria: Contaminated/Leaked. loryefrie has been notified of need of recollection. 12/21/24957 Issac Chawla White Performed By: #### L 100.0100 #### [facility] [address] [place], [address] Potassium Normal 3.3-5.1 [facility] Comment on above: Result Comment: This specimen has been REJECTED due to Laboratory criteria: Contaminated/Leaked. juliocesar has been notified of need of recollection. 12/21/24957 Issac Chawla White Performed By: #### L 100.0100 #### [facility] [address] [place], [address] T BILI Normal 0.00-1.30 [facility] Comment on above: Result Comment: This specimen has been REJECTED due to Laboratory criteria: Contaminated/Leaked. veronikae has been notified of need of recollection. 12/21/24957 Issac Chawla White Performed By: #### L 100.0100 #### [facility] [address] [place], [address] T PROT Normal 5.9-8.4 [facility] Comment on above: Result Comment: This specimen has been REJECTED due to Laboratory criteria: Contaminated/Leaked. juliocesar has been notified of need of recollection. 12/21/24957 Issac Chawla White Performed By: #### L 100.0100 #### [facility] [address] [place], [address] Comprehensive Metabolic Profil Normal 133-145 [facility] Comment on above: Result Comment: This specimen has been REJECTED due to Laboratory criteria: Contaminated/Leaked. juliocesar has been notified of need of recollection. 12/21/24 0958 Issac Chawla Josh Performed By: #### L 100.0100 #### [facility] [address] [place], [address] Comprehensive Metabolic Prof ilOrdered By: Babak Garcia on 12-21-2024 AST [Catalytic activity/Vol] 28 U/L Normal <=31 [facility] Comment on above: Hemolysis present, R esults could be affected. Result Comment: Hemo lysis present, Results??could be affected. ?? Performed By: #### L 100.0100 #### [facility] [address] [place], [place], [address] Emergency Department Summary on 12-21-2024 Emergency Department Summary [facility] Medical Records Department [address] [place] [address] Emergency Department Summary 12/21/24 MR#: [id number] Acct: [id number] Name: BRENDA LE Rep #: [id number] : 1965 59 From: Babak Garcia DO PCP: Shelia Salmon, MANAGER MAIL Status:REG ER Location: ED HPI History of Present Illness Chief Complaint: Shortness of Breath Narrative Narrative: Patient is a 59-year-old female with past medical history of COPD, schizophrenia, 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 Patient states that she has been sick for past few days. She noted that recently she was in the hospital for pneumonia. Patient notes that she is very short of breath if she tries to lie down flat. Patient states that she is around 2 ill individuals right now in her long term. Patient states that she has been wheezing a lot lately. Per EMS they did not give any breathing treatments as her lungs were clear for them. [facility] Medical History Obesity (BMI 30-39.9) Hyponatremia Leukocytosis Respiratory insufficiency COPD exacerbation Pneumonia COPD exacerbation Schizophrenia LIDA on CPAP Obesity Anxiety and depression Type 2 diabetes mellitus COPD (chronic obstructive pulmonary disease) Restless leg syndrome GERD (gastroesophageal reflux disease) HTN (hypertension) Hyperlipidemia Home Medications ???Medication ???Instructions ???Recorded ???Last Taken ???Type cholecalciferol (vitamin D3) 25 1,000 unit PO DAILY SUPPLEMENT 02/2707/30/21 History mcg (1,000 unit) capsule (Vitamin D3) aspirin 325 mg tablet,delayed 325 mg PO DAILY@1600 heart health 07/22/18 07/30/21 History release omeprazole 20 mg capsule,delayed 20 mg PO DAILY indigestion 0 07/30/21 History release potassium chloride 20 mEq 20 meq PO DAILY supplement 0 07/30/21 History tablet,extended release(part/cryst) clozapine 100 mg tablet 100 mg PO 4X/DAY SCHIZOPHRENIA 07/30/21 History empagliflozin 10 mg tablet 10 mg PO DAILY diabetes 07/30/21 1 History (Jardiance) furosemide 20 mg tablet 20 mg PO DAILY FLUID 07/30/2107/13 History insulin glargine 100 unit/mL (3 48 unit subcut DAILY@1600 DM 07/3007/30/21 History mL) subcutaneous pen (Lantus Solostar U-100 Insulin) metoprolol succinate 25 mg 25 mg PO QHS HTN 07/30/21 07/29/21 History tablet,extended release 24 hr clonazepam 0.5 mg tablet 1 mg PO BID schizophrenia 06/05/22 Unknown History ferrous sulfate 325 mg (65 mg 325 mg PO .BID with meals anemia 0 06/05/22 Unknown History iron) tablet (Feosol) pramipexole 0.5 mg tablet 0.25 mg PO QHS restless legs 06/05 Unknown History atorvastatin 10 mg tablet 10 mg PO DAILY Cholesterol 3 Unknown History guaifenesin 1,200 mg tablet, 1,200 mg PO DAILY congestion 08/14 Unknown History extended release 12 hr (Mucus Relief ER) haloperidol 2 mg tablet 2 mg PO QHS anxiety 08/14/23 Unkno wn History metformin 500 mg tablet,extended 1,000 mg PO BID Diabetes 08/14/23 Unknown History release 24 hr benztropine 0.5 mg tablet 0.5 mg PO BID tremors 08/15/23 Unk nown History ondansetron 4 mg disintegrating 4 mg PO Q8H PRN PRN Nausea #14 tab s 12/13/23 Unknown Rx tablet peg 3350-electrolytes 236 240 ml PO Q10M PRN #4,000 mL 12/12 Unknown Rx gram-22.74 gram-6.74 gram-5.86 gram solution (Golytely) ondansetron 4 mg disintegrating 4 mg PO Q8H PRN PRN Nausea #10 tab s 10/14/24 Unknown Rx tablet docusate sodium 100 mg capsule mg PO 11/09/24 Unknown History fluticasone furoate 100 inhalation DAILY 11/09/24 Unknown History mcg-vilanterol 25 mcg/dose inhalation powder (Breo Ellipta) gabapentin 100 mg capsule mg 3XD 11/09/24 Unknown History guaifenesin 600 mg tablet, mg PO 11/09/24 Unknown History extended release 12 hr (Mucus Relief ER) omega-3 fatty acids-fish oil 300 cap 11/09/24 Unknown History mg-1,000 mg capsule paliperidone palmitate 234 mg/1.5 mg IM 11/09/24 Unknown History mL intramuscular syringe (Invega Sustenna) umeclidinium 62.5 mcg/actuation inhalation DAILY 11/09/24 Unknown History blister powder for inhalation (Incruse Ellipta) doxycycline hyclate 100 mg tablet 100 mg PO BID 7 days #14 tabs Unknown Rx doxycycline monohydrate 100 mg 100 mg PO BID #11 tabs 11/12/24 Un known Rx tablet prednisone 20 mg tablet 20 mg PO BID #14 tabs 11/12/24 Unk nown Rx prednisone 20 mg tablet 40 mg (2 x 20 mg) PO DAILY #14 tab s 11/12/24 Unknown Rx ondansetron 4 mg disintegrating 4 mg PO Q6H PRN nausea and 5 Unknown Rx table (more content not included)... Normal [facility] Eosinophil percentageOrdered By: Babak Garcia on 12-21-2024 Eosinophils/100 WBC (Bld) 0.1 % Normal 0-5 [facility] Comment on above: Performed By: #### L 100.0100 #### [facility] [address] [place], [place], [address] Result Comment: This specimen has been REJECTED due to Laboratory criteria: Contaminated/Leaked. juliocesar has been notified of need of recollection. 12/21/24 0957 Issac Denton Josh Performed By: #### L 501.4021 #### [facility] [address] [place], [place], [address] Epithelial cells.squamous LM Ql (Urine sed)Ordered By: Babak Garcia on 12-21-2024 Epithelial cells.squamous LM.HPF (Urine sed) [#/Area] 0 /[HPF] 5-10 [facility] Erythrocyte distribution wid th ratioOrdered By: Babak Garcia on 12-21-2024 Erythrocyte distribution width (RBC) [Ratio] 14.3 % Normal 11.6-14.6 [facility] Comment on above: Performed By: #### L 100.0100 #### [facility] [address] [place], [place], [address] Erythrocyte distribution wid th standard deviationOrdered By: Babak Garcia on 12-21-2024 Erythrocyte distribution width (RBC) [Entitic vol] 46.4 fL High 35.1-43.9 [facility] Estimation of creatinine epi aranceOrdered By: Babak Garcia on 12-21-2024 Estimated Creatinine Clearance Calc 127.81 ml/min 50-250 [facility] GFR/1.73 sq M.predicted kam g non-blacks MDRD (S/P/Bld) [Vol rate/Area]Ordered By: Babak Garcia on 12-21-2024 Estimated GFR (MDRD) Non-Af Amer 109 >60 [facility] Comment on above: mL/min/1.73m2 CKD-EP I Creatinine Equation (2020) Glucose Ql (U)Ordered By: Rory Garcia on 12-21-2024 Glucose (U) [Mass/Vol] 1000 mg/dL High Normal [facility] Hemoglobin measurementOrdere d By: Babak Garcia on 12-21-2024 Hemoglobin (Bld) [Mass/Vol] 12.7 g/dL Normal 12.0-15.0 [facility] Comment on above: Performed By: #### L 100.0100 #### [facility] [address] [place], [address] Immature granulocytes/100 WB C Auto (Bld)Ordered By: Babak Garcia on 12-21-2024 Immature granulocytes/100 WBC (Bld) 0.400 % 0.0-0.9 [facility] Comment on above: IG% - Immature Granu locytes (promyelocytes, myelocytes and metamyelocytes) > 1% indicates that a LEFT SHIFT is Present. Influenza virus A and B and SARS-CoV-2 (COVID-19) and Respiratory syncytial virus RNAOrdered By: Babak Garcia on 12-21-2024 SARS-CoV-2 (COVID-19) RNA LUIS M+probe Ql (Unsp spec) SARS-CoV-2 (COVID 19 PCR) Abnormal [facility] International normalized rat io (INR) calculationOrdered By: Babak Garcia on 12-21-2024 INR Coag (Bld) [Relative time] 1.0 {INR} [facility] Ketones Test strip Ql (U)Ord ered By: Babak Garcia on 12-21-2024 Ketones Ql (U) Negative Negative [facility] L499.0042on 12-21-2024 Trop T High Sen 7 ng/L Normal <=14 [facility] Comment on above: Performed By: #### L 100.0100 #### [facility] [address] [place], [address] L499.0043on 12-21-2024 Trop T High Sen Normal <=14 [facility] Comment on above: Result Comment: Canc elled via OM: Order cancelled - Patient discharged Performed By: #### L 100.0100 #### [facility] [address] [place], [address] L501.4021on 12-21-2024 Trop T High Sen 7 ng/L Normal <=14 [facility] Comment on above: Performed By: #### L 501.4021 #### [facility] [address] [place], [address] L503.7505on 12-21-2024 proBNP < 36 Normal <=900 [facility] Comment on above: Result Comment: Hear t Failure Unlikely: < 300 pg/mL Heart Failure Likely < 50 Years: > 450 pg/mL 50-75 Years: > 900 pg/mL >75 Years: > 1800 pg/mL Performed By: #### L 100.0100 #### [facility] [address] [place], [address] Lactic acid measurementOrder ed By: Babak Garcia on 12-21-2024 Lactate [Moles/Vol] 1.4 mmol/L Normal 0.0-2.0 [facility] Comment on above: Order Comment: Y Performed By: #### L 100.0100 #### [facility] [address] [place], [address] Lymphocytes Auto (Unsp spec) [#/Vol]Ordered By: Babak Garcia on 12-21-2024 Lymphocytes (Bld) [#/Vol] 1.06 10*3/uL 0.83-4.51 [facility] M100.678on 12-21-2024 M100.678 Copy of report sent to Infection Control Printer [id number] 12/21/24 0936 SELENA. SARS-CoV-2 (COVID 19) A Positive A INFLUENZA A Negative INFLUENZA B Negative RSV PCR Negative SARS-CoV-2 (COVID 19 PCR) Normal [facility] Comment on above: Performed By: #### L 500.4050, L501.4020, L501.2450, L100.0500 #### [facility] [address] [place], [address] MCV (mean corpuscular volume ) determinationOrdered By: Babak Garcia on 12-21-2024 MCV (RBC) [Entitic vol] 88.6 fL Normal 81-99 [facility] Comment on above: Performed By: #### L 100.0100 #### [facility] [address] [place], [place], [id number] Mean corpuscular hemoglobin (MCH) determinationOrdered By: Babak Garcia on 12-21-2024 MCH (RBC) [Entitic mass] 29.5 pg Normal 27.0-32.0 [facility] Comment on above: Performed By: #### L 100.0100 #### [facility] [address] [place], [place], [id number] Mean corpuscular hemoglobin concentration (MCHC) determinationOrdered By: Babak Garcia on 12-21-2024 MCHC (RBC) [Mass/Vol] 33.3 g/dL Normal 32-36 [facility] Comment on above: Performed By: #### L 100.0100 #### [facility] [address] [place], [place], [address] Mean platelet volume determi nationOrdered By: Babak Garcia on 12-21-2024 Platelet mean volume (Bld) [Entitic vol] 9.4 fL Normal 6.2-12.0 [facility] Comment on above: Performed By: #### L 100.0100 #### [facility] [address] [place], [place], [address] Microscopic analysis of urin e for red blood cells (RBC)Ordered By: Babak Garcia on 12-21-2024 Urine RBC 0 SEEN /hpf 0-5 [facility] Monocyte percentageOrdered B y: Babak Garcia on 12-21-2024 Monocytes/100 WBC (Bld) 4.7 % Normal 0-10 [facility] Comment on above: Performed By: #### L 100.0100 #### [facility] [address] [place], [place], [address] Mucus LM Ql (Urine sed)Order ed By: Babak Garcia on 12-21-2024 Mucus Ql (Urine sed) 0 SEEN /hpf [facility] Neutrophil percentageOrdered By: Babak Garcia on 12-21-2024 Neutrophils/100 WBC (Bld) 86.0 % High 47-70 [facility] Comment on above: Performed By: #### L 100.0100 #### [facility] [address] [place], [address] Nitrite Test strip Ql (U)Ord ered By: Babak Garcia on 12-21-2024 Nitrite Ql (U) Negative Negative [facility] No Panel InformationOrdered By: Babak Garcia on 12-21-2024 Troponin T High Sensitivity 7 ng/L <14 [facility] YU-EdgS-Dgcx Natriuretic Peptide II < 36 pg/mL <900 [facility] Comment on above: Heart Failure Unlike ly: < 300 pg/mLHeart Failure Likely< 50 Years: > 450 pg/mL50-75 Years: > 900 pg/mL>75 Years: > 1800 pg/mL Nucleated red blood cell per centageOrdered By: Babak Garcia on 12-21-2024 Nucleated RBC/100 WBC (Bld) [Ratio] 0 % 0-5 [facility] Partial Thromboplast Timeon 12-21-2024 aPTT Coag (Bld) [Time] 35.4 s Normal 24.1-36.2 [facility] Comment on above: Performed By: #### L 100.0100 #### [facility] [address] [place], [address] Platelet countOrdered By: Rory Garcia on 12-21-2024 Platelets (Bld) [#/Vol] 186 10*3/uL Normal 150-450 [facility] Comment on above: Performed By: #### L 100.0100 #### [facility] [address] [place], [address] Potassium measurement (mass/ volume)Ordered By: Babak Garcia on 12-21-2024 Potassium [Moles/Vol] 4.0 mmol/L Normal 3.3-5.1 [facility] Comment on above: Hemolysis present, R esults could be affected. Result Comment: Hemo lysis present, Results??could be affected. ?? Performed By: #### L 100.0100 #### [facility] [address] [place], [address] Protein Test strip Ql (U)Ord ered By: Babak Garcia on 12-21-2024 Protein Ql (U) 15 mg/dl High Negative [facility] Prothrombin Time w/INRon INR Coag (PPP) [Relative time] 1.0 {INR} Normal [facility] Comment on above: Performed By: #### L 501.4021 #### [facility] [address] [place], [address] PT Coag (PPP) [Time] 13.0 s Normal 11.7-14.9 [facility] Comment on above: Performed By: #### L 501.4021 #### [facility] [address] [place], [address] Prothrombin timeOrdered By: Babak Garcia on 12-21-2024 PT Coag (PPP) [Time] 13.0 s 11.7-14.9 [facility] Serum creatinine measurement (mass/volume)Ordered By: Babak Garcia on 12-21-2024 Creatinine [Mass/Vol] 0.46 mg/dL Low 0.70-1.20 [facility] Comment on above: Performed By: #### L 100.0100 #### [facility] [address] [place], [address] Serum globulin measurementOr dered By: Babak Garcia on 12-21-2024 Globulin (S) [Mass/Vol] 2.6 g/dL Normal 2.2-4.2 [facility] Comment on above: Performed By: #### L 100.0100 #### [facility] [address] [place], [address] Serum glucose measurement (m ass/volume)Ordered By: Babak Garcia on 12-21-2024 Glucose [Mass/Vol] 124 mg/dL High 70-99 [facility] Comment on above: Performed By: #### L 100.0100 #### [facility] [address] [place], [address] Serum or plasma alanine angulo otransferase (ALT) measurementOrdered By: Babak Garcia on 12-21-2024 ALT [Catalytic activity/Vol] 33 U/L Normal <=34 [facility] Comment on above: Performed By: #### L 100.0100 #### [facility] [address] [place], [address] Serum or plasma albumin lawrence urement (mass/volume)Ordered By: Babak Garcia on 12-21-2024 Albumin [Mass/Vol] 3.7 g/dL Normal 3.4-4.8 [facility] Comment on above: Performed By: #### L 100.0100 #### [facility] [address] [place], [address] Serum or plasma albumin/glob ulin mass ratioOrdered By: Babak Garcia on 12-21-2024 Albumin/Globulin [Mass ratio] 1.4 {ratio} Normal 0.9-2.4 [facility] Comment on above: Performed By: #### L 100.0100 #### [facility] [address] [place], [address] Serum or plasma alkaline jakob sphatase measurementOrdered By: Babak Garcia on 12-21-2024 ALP [Catalytic activity/Vol] 108 U/L High 35-104 [facility] Serum or plasma calcium lawrence urement (mass/volume)Ordered By: Babak Garcia on 12-21-2024 Calcium [Mass/Vol] 8.1 mg/dL Normal 7.6-11.0 [facility] Comment on above: Performed By: #### L 100.0100 #### [facility] [address] [place], [address] Serum or plasma urea nitroge n measurement (mass/volume)Ordered By: Babak Garcia on 12-21-2024 Urea nitrogen [Mass/Vol] 9 mg/dL Normal 4-19 [facility] Comment on above: Performed By: #### L 100.0100 #### [facility] [address] [place], [address] Sodium levelOrdered By: Juma Garcia on 12-21-2024 Sodium [Moles/Vol] 135 mmol/L Normal 133-145 [facility] Comment on above: Performed By: #### L 100.0100 #### [facility] [address] [place], [address] Total proteinOrdered By: Rogelio Garcia on 12-21-2024 Protein [Mass/Vol] 6.3 g/dL 5.9-8.4 [facility] Troponin T.cardiac High sens itivity method [Mass/Vol]Ordered By: Babak Garcia on 12-21-2024 Troponin T High Sensitivity 2 Hour 7 ng/L <14 [facility] Urinalysis, Completeon 12-21 RBC 0 SEEN Normal 0-5 [facility] Comment on above: Order Comment: DARVIN CTOR TO SPECIFY Performed By: #### L 500.4050, L501.4020, L501.2450, L100.0500 #### [facility] [address] [place], [address] BACTERIA 0 SEEN Normal None Seen [facility] Comment on above: Order Comment: COLLE CTOR TO SPECIFY Performed By: #### L 500.4050, L501.4020, L501.2450, L100.0500 #### [facility] [address] [place], [address] EPI,SQUAMOUS 0 SEEN Normal 5-10 [facility] Comment on above: Order Comment: COLLE CTOR TO SPECIFY Performed By: #### L 500.4050, L501.4020, L501.2450, L100.0500 #### [facility] [address] [place], [address] Mucus Ql (Urine sed) 0 SEEN Normal [facility] Comment on above: Order Comment: DARVIN CTOR TO SPECIFY Performed By: #### L 500.4050, L501.4020, L501.2450, L100.0500 #### [facility] [address] [place], [address] WBC 0 SEEN Normal 0-5 [facility] Comment on above: Order Comment: DARVIN CTOR TO SPECIFY Performed By: #### L 500.4050, L501.4020, L501.2450, L100.0500 #### [facility] [address] [place], [address] Urine blood detectionOrdered By: Babak Garcia on 12-21-2024 Urine Occult Blood Negative Negative [facility] Urine clarityOrdered By: Rogelio Garcia on 12-21-2024 Clarity (U) Clear Clear [facility] Urine color determinationOrd ered By: Babak Garcia on 12-21-2024 Color (U) Yellow Yellow [facility] Urine cultureOrdered By: Rogelio Garcia on 12-21-2024 Bacteria identified Cx Nom (U) Mixed Gram Pos & Gram Neg Org Abnormal [facility] Urine leukocyte esterase det ection by dipstickOrdered By: Babak Garcia on 12-21-2024 Leukocyte esterase Test strip Ql (U) Negative Negative [facility] Urine pHOrdered By: Babak davidson on 12-21-2024 pH (U) 6.5 [pH] 5.0 - 8.0 [facility] Urine sediment bacteria coun t by microscopy (number/high power field)Ordered By: Babak Garcia on 12-21-2024 Bacteria LM.HPF (Urine sed) [#/Area] 0 /[HPF] None Seen [facility] Urine specific gravity measu rementOrdered By: Babak Garcia on 12-21-2024 Specific gravity (U) [Rel density] 1.010 1.002-1.030 [facility] Urobilinogen Ql (U)Ordered B y: Babak Garcia on 12-21-2024 Urine Urobilinogen Normal mg/dl Normal [facility] White blood cell (WBC) count Ordered By: Babak Jose on 12-21-2024 WBC (Bld) [#/Vol] 12.3 10*3/uL High 4.4-11.0 [facility] Comment on above: Performed By: #### L 100.0100 #### [facility] [address] [place], [place], [id number] White blood cell countOrdere d By: Babak Garcia on 12-21-2024 Urine WBC 0 SEEN /hpf 0-5 [facility] aPTT Coag (PPP) [Time]Ordere d By: Babak Garcia on 12-21-2024 aPTT Coag (Bld) [Time] 35.4 s 24.1-36.2 [facility] Absolute neutrophil countOrd ered By: Lorraine Springer on 12-08-2024 Neutrophils (Bld) [#/Vol] 6.5 10*3/uL 2.0-7.7 [facility] Basophil percentageOrdered B y: Lorraine Springer on 12-08-2024 Basophils/100 WBC (Bld) 0.6 % 0-1 [facility] CBC W/Diff, Automatedon 11-14 Absolute Lymph 2.50 X10 3/uL Normal 0.83-4.51 [facility] Comment on above: Performed By: #### L 100.0100 #### [facility] [address] [place], [address] Absolute Neut 6.5 X10 3/uL Normal 2.0-7.7 [facility] Comment on above: Performed By: #### L 100.0100 #### [facility] [address] [place], [address] Basophils/100 WBC (Bld) 0.6 % Normal 0-1 [facility] Comment on above: Performed By: #### L 100.0100 #### [facility] [address] [place], [address] Eosinophils/100 WBC (Bld) 0.2 % Normal 0-5 [facility] Comment on above: Performed By: #### L 100.0100 #### [facility] [address] [place], [address] Erythrocyte distribution width (RBC) [Ratio] 14.5 % Normal 11.6-14.6 [facility] Comment on above: Performed By: #### L 100.0100 #### [facility] [address] [place], [address] Hematocrit (Bld) [Volume fraction] 41.7 % Normal 37-47 [facility] Comment on above: Performed By: #### L 100.0100 #### [facility] [place], [address] Hemoglobin (Bld) [Mass/Vol] 13.7 g/dL Normal 12.0-15.0 [facility] Comment on above: Performed By: #### L 100.0100 #### [facility] [address] [facility] [place], [address] IG% 0.500 Normal 0.0-0.9 [facility] Comment on above: Result Comment: IG% - Immature Granulocytes (promyelocytes, myelocytes and metamyelocytes) > 1% indicates that a LEFT SHIFT is Present. Performed By: #### L 100.0100 #### [facility] [address] [place], [address] Lymphocytes/100 WBC (Bld) 25.5 % Normal 19-41 [facility] Comment on above: Performed By: #### L 100.0100 #### [facility] [address] [place], [address] MCH (RBC) [Entitic mass] 29.3 pg Normal 27.0-32.0 [facility] Comment on above: Performed By: #### L 100.0100 #### [facility] [address] [place], [address] MCHC (RBC) [Mass/Vol] 32.9 g/dL Normal 32-36 [facility] Comment on above: Performed By: #### L 100.0100 #### [facility] [address] [place], [address] MCV (RBC) [Entitic vol] 89.3 fL Normal 81-99 [facility] Comment on above: Performed By: #### L 100.0100 #### [facility] [address] [place], [address] Monocytes/100 WBC (Bld) 7.0 % Normal 0-10 [facility] Comment on above: Performed By: #### L 100.0100 #### [facility] [address] [place], [address] Neutrophils/100 WBC (Bld) 66.2 % Normal 47-70 [facility] Comment on above: Performed By: #### L 100.0100 #### [facility] [address] [place], [address] Nucleated RBC (Bld) [#/Vol] 0 10*3/uL Normal 0-5 [facility] Comment on above: Performed By: #### L 100.0100 #### [facility] [address] [place], [address] Platelet mean volume (Bld) [Entitic vol] 9.5 fL Normal 6.2-12.0 [facility] Comment on above: Performed By: #### L 100.0100 #### [facility] [address] [place], [address] Platelets (Bld) [#/Vol] 225 10*3/uL Normal 150-450 [facility] Comment on above: Performed By: #### L 100.0100 #### [facility] [address] [place], [address] RBC (Bld) [#/Vol] 4.67 10*6/uL Normal 4.2-5.4 [facility] Comment on above: Performed By: #### L 100.0100 #### [facility] [address] [place], [address] RDW SD 46.8 fl High 35.1-43.9 [facility] Comment on above: Performed By: #### L 100.0100 #### [facility] [address] [place], [address] WBC (Bld) [#/Vol] 9.8 10*3/uL Normal 4.4-11.0 [facility] Comment on above: Performed By: #### L 100.0100 #### [facility] [address] [place], [address] Eosinophil percentageOrdered By: Lorraine Springer on 12-08-2024 Eosinophils/100 WBC (Bld) 0.2 % 0-5 [facility] Erythrocyte distribution wid th ratioOrdered By: Lorraine Springer on 12-08-2024 Erythrocyte distribution width (RBC) [Ratio] 14.5 % 11.6-14.6 [facility] Erythrocyte distribution wid th standard deviationOrdered By: Lorraine Springer on 12-08-2024 Erythrocyte distribution width (RBC) [Entitic vol] 46.8 fL High 35.1-43.9 [facility] Hematocrit Auto (Bld) [Volum e fraction]Ordered By: Lorraine Springer on 12-08-2024 Hematocrit (Bld) [Volume fraction] 41.7 % 37-47 [facility] Hemoglobin measurementOrdere d By: Lorraine Springer on 12-08-2024 Hemoglobin (Bld) [Mass/Vol] 13.7 g/dL 12.0-15.0 [facility] Immature granulocytes/100 WB C Auto (Bld)Ordered By: Lorraine Springer on 12-08-2024 Immature granulocytes/100 WBC (Bld) 0.500 % 0.0-0.9 [facility] Comment on above: IG% - Immature Granu locytes (promyelocytes, myelocytes and metamyelocytes) > 1% indicates that a LEFT SHIFT is Present. Lymphocytes Auto (Unsp spec) [#/Vol]Ordered By: Lorraine Springer on 12-08-2024 Lymphocytes (Bld) [#/Vol] 2.50 10*3/uL 0.83-4.51 [facility] Lymphocytes/100 WBC Auto (Un sp spec)Ordered By: Lorraine Springer on 12-08-2024 Lymphocytes/100 WBC (Bld) 25.5 % 19-41 [facility] MCV (mean corpuscular volume ) determinationOrdered By: Lorraine Springer on 12-08-2024 MCV (RBC) [Entitic vol] 89.3 fL 81-99 [facility] Mean corpuscular hemoglobin (MCH) determinationOrdered By: Lorraine Springer on 12-08-2024 MCH (RBC) [Entitic mass] 29.3 pg 27.0-32.0 [facility] Mean corpuscular hemoglobin concentration (MCHC) determinationOrdered By: Lorraine Springer on 12-08-2024 MCHC (RBC) [Mass/Vol] 32.9 g/dL 32-36 [facility] Mean platelet volume determi nationOrdered By: Lorraine Springer on 12-08-2024 Platelet mean volume (Bld) [Entitic vol] 9.5 fL 6.2-12.0 [facility] Monocyte percentageOrdered B y: Lorraine Springer on 12-08-2024 Monocytes/100 WBC (Bld) 7.0 % 0-10 [facility] Neutrophil percentageOrdered By: Lorraine Springer on 12-08-2024 Neutrophils/100 WBC (Bld) 66.2 % 47-70 [facility] Nucleated red blood cell per centageOrdered By: Lorraine Springer on 12-08-2024 Nucleated RBC/100 WBC (Bld) [Ratio] 0 % 0-5 [facility] Platelet countOrdered By: Anastacia Springer on 12-08-2024 Platelets (Bld) [#/Vol] 225 10*3/uL 150-450 [facility] RBC Auto (Bld) [#/Vol]Ordere d By: Lorraine Springer on 12-08-2024 RBC (Bld) [#/Vol] 4.67 10*6/uL 4.2-5.4 [facility] White blood cell (WBC) count Ordered By: Lorraine Springer on 12-08-2024 WBC (Bld) [#/Vol] 9.8 10*3/uL 4.4-11.0 [facility] CNOVon 12-07-2024 CNOV Normal [facility] XR CHEST 2V FRONTAL/LATon XR CHEST 2V FRONTAL/LAT Normal C [facility] XR Chest PA and Lateralon IMPRESSION: No acute radiographic abnormality. 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 Transcribe Date/Time: Dec 07 2024 12:05P Dictated by : LISET MAY MD This examination was interpreted and the report reviewed and electronically signed by: LISET MAY MD on Dec 07 2024 12:06PM [facility] DIVISION OF RADIOLOGY * * *Final Report* * * DATE OF EXAM: Dec 07 2024 12:04PM WOX 5291 - XR CHEST 2V FRONTAL/LAT / PROCEDURE REASON: Bacterial pneumonia * * * * Physician Interpretation * * * * EXAMINATION: CHEST RADIOGRAPH (2 VIEW FRONTAL & LATERAL) CLINICAL HISTORY: Follow-up pneumonia MQ: XC2_6 EXAM DATE/TIME: 12/07/2024 12:04 PM COMPARISON: Chest x-ray 11/09/2024 RESULT: Lines, tubes, and devices: None. Lungs and pleura: No consolidation. No lung mass. No pleural effusion. No pneumothorax. Cardiomediastinal silhouette: Normal cardiomediastinal silhouette. Bones and soft tissues: Unremarkable. DIVISION OF RADIOLOGY Provider, [facility] - 12/07/2024 * * *Final Report* * * DATE OF EXAM: Dec 07 2024 12:04PM WOX 5291 - XR CHEST 2V FRONTAL/LAT / PROCEDURE REASON: Bacterial pneumonia * * * * Physician Interpretation * * * * EXAMINATION: CHEST RADIOGRAPH (2 VIEW FRONTAL & LATERAL) CLINICAL HISTORY: Follow-up pneumonia MQ: XC2_6 EXAM DATE/TIME: 12/07/2024 12:04 PM COMPARISON: Chest x-ray 11/09/2024 RESULT: Lines, tubes, and devices: None. Lungs and pleura: No consolidation. No lung mass. No pleural effusion. No pneumothorax. Cardiomediastinal silhouette: Normal cardiomediastinal silhouette. Bones and soft tissues: Unremarkable. IMPRESSION IMPRESSION: No acute radiographic abnormality. Punchboard Filling Machine Operator: PSCB Transcribe Date/Time: Dec 07 2024 12:05P Dictated by : LISET MAY MD This examination was interpreted and the report reviewed and electronically signed by: LISET MAY MD on Dec 07 2024 12:06PM [facility] Radiology Study observation (narrative) [facility] XR Chest PA and LateralOrder ed By: [facility] Provider on 12-07-2024 [facility] 12-03-2024 CNPN Normal [facility] PVR ANK/LARRY/TOE ASHELY VAS LAB on 12-01-2024 PVR ANK/LARRY/TOE ASHELY VAS LAB Normal [facility] CNPNon 11-29-2024 CNPN Normal [facility] CBC W/Diff, Automatedon Absolute Lymph 1.87 X10 3/uL Normal 0.83-4.51 [facility] Comment on above: Performed By: #### L 100.0100 #### [facility] [address] [place], [address] Absolute Neut 11.3 X10 3/uL High 2.0-7.7 [facility] Comment on above: Performed By: #### L 100.0100 #### [facility] [address] [place], [address] Basophils/100 WBC (Bld) 0.5 % Normal 0-1 [facility] Comment on above: Performed By: #### L 100.0100 #### [facility] [address] [place], [address] Eosinophils/100 WBC (Bld) 0.1 % Normal 0-5 [facility] Comment on above: Performed By: #### L 100.0100 #### [facility] [address] [place], [address] Erythrocyte distribution width (RBC) [Ratio] 14.3 % Normal 11.6-14.6 [facility] Comment on above: Performed By: #### L 100.0100 #### [facility] [address] [place], [address] Hematocrit (Bld) [Volume fraction] 41.1 % Normal 37-47 [facility] Comment on above: Performed By: #### L 100.0100 #### [facility] [address] [place], [address] Hemoglobin (Bld) [Mass/Vol] 13.3 g/dL Normal 12.0-15.0 [facility] Comment on above: Performed By: #### L 100.0100 #### [facility] [address] [place], [address] IG% 3.400 High 0.0-0.9 [facility] Comment on above: Result Comment: IG% - Immature Granulocytes (promyelocytes, myelocytes and metamyelocytes) > 1% indicates that a LEFT SHIFT is Present. Performed By: #### L 100.0100 #### [facility] [address] [place], [address] Lymphocytes/100 WBC (Bld) 13.1 % Low 19-41 [facility] Comment on above: Performed By: #### L 100.0100 #### [facility] [address] [place], [address] MCH (RBC) [Entitic mass] 28.9 pg Normal 27.0-32.0 [facility] Comment on above: Performed By: #### L 100.0100 #### [facility] [address] [place], [address] MCHC (RBC) [Mass/Vol] 32.4 g/dL Normal 32-36 [facility] Comment on above: Performed By: #### L 100.0100 #### [facility] [address] [place], [address] MCV (RBC) [Entitic vol] 89.2 fL Normal 81-99 [facility] Comment on above: Performed By: #### L 100.0100 #### [facility] [address] [place], [address] Monocytes/100 WBC (Bld) 3.7 % Normal 0-10 [facility] Comment on above: Performed By: #### L 100.0100 #### [facility] [address] [place], [address] Neutrophils/100 WBC (Bld) 79.2 % High 47-70 [facility] Comment on above: Performed By: #### L 100.0100 #### [facility] [address] [place], [address] Nucleated RBC (Bld) [#/Vol] 0 10*3/uL Normal 0-5 [facility] Comment on above: Performed By: #### L 100.0100 #### [facility] [address] [place], [address] Platelet mean volume (Bld) [Entitic vol] 9.5 fL Normal 6.2-12.0 [facility] Comment on above: Performed By: #### L 100.0100 #### [facility] [address] [place], [address] Platelets (Bld) [#/Vol] 262 10*3/uL Normal 150-450 [facility] Comment on above: Performed By: #### L 100.0100 #### [facility] [address] [place], [address] RBC (Bld) [#/Vol] 4.61 10*6/uL Normal 4.2-5.4 [facility] Comment on above: Performed By: #### L 100.0100 #### [facility] [address] [place], [address] RDW SD 45.5 fl High 35.1-43.9 [facility] Comment on above: Performed By: #### L 100.0100 #### [facility] [address] [place], [address] WBC (Bld) [#/Vol] 14.3 10*3/uL High 4.4-11.0 [facility] Comment on above: Performed By: #### L 100.0100 #### [facility] [address] [place], [address] Culture, Blood (WB)on 2024 CUB Blood cultures x2, f rom two different sites No growth in 5 days. Normal [facility] Comment on above: Performed By: #### L 500.4050, L501.4020, L501.2450, L100.0500 #### [facility] [address] [place], [address] Vitamin D 1,25-Dihydroxyon 0 11-13-2024 VIT D 1,25 DIHY 106.0 pg/mL Abnormal 24.8-81.5 [facility] Comment on above: Result Comment: Perf ormed at: BN - [facility] [address] [id number] Delivery Man: Darcy Schulz MD, Phone: [phone] Performed By: #### L 501402 #### [facility] [address] [place], [address] BNP (brain natriuretic pepti de measurement)Ordered By: Hesham Rod on 11-12-2024 Natriuretic peptide B (Bld) [Mass/Vol] 24.1 pg/mL 0-100 [facility] BNP,B-Type NATRIURETIC PEPTI Yair 11-12-2024 Natriuretic peptide B (Bld) [Mass/Vol] 24.1 pg/mL Normal 0-100 [facility] Comment on above: Performed By: #### L 100.0100 #### [facility] [address] [place], [address] Bedside Glucoseon 11-12-2024 FINGERSTICK GLU 213 mg/dL High 74-106 [facility] Comment on above: Result Comment: DANIEL GEMENT OF PATIENT CARE PER NURSING PROTOCOL Performed By: #### L 100.0100 #### [facility] [address] [place], [address] FINGERSTICK GLU 230 mg/dL High 74-106 [facility] Comment on above: Result Comment: DANIEL GEMENT OF PATIENT CARE PER NURSING PROTOCOL Performed By: #### L 501.4021 #### [facility] [address] [place], [address] Chest 1 View (Portable)on Chest 1 View (Portable) [facility] Imaging Services [address] [place] [address] Chest 1 View (Portable) MR#: [id number] Acct: [id number] Name: BRENDA LE Rep #: [id number] : 1965 F 58 From: Adriano Mejia DO PCP: Shelia Salmon, MANAGER MAIL Status: ADM IN Study: Chest 1 View (Portable) Date of Exam: 11/12/24 Exam# [id number] Ordering Dr: Hesham Amato DO PROCEDURE: CHEST 1 VIEW (PORTABLE) REASON FOR EXAM: Coughing. TECHNIQUE: Frontal view of the chest. COMPARISON: 11/09/2024 FINDINGS: Intermediate lung volumes. Mild patchy airspace disease/infiltrate involving the left lower lobe, improved in the interval. Interval resolution of the previously seen right lower lobe infiltrate. Remaining lung markings otherwise appears clear. No pneumothorax or sizable effusion is seen. Heart size and great vessels are stable. Osseous thorax appears intact. RAD/Chest 1 View (Portable) IMPRESSION: 1. Minimal residual patchy airspace disease/infiltrate involving the left lower lobe, improved in the interval. 2. Interval resolution of the previously seen right lower lobe infiltrate . Reading [facility] CC: MANAGER MAIL Shelia Salmon; Dr. Hesham Amato DO Punchboard Filling Machine Operator: Signed Normal [facility] Discharge Instructionon 10-15 Discharge Instruction [facility] Medical Records Department [address] [place] [address] Instructions for Home/Discharge Instructions 11/12/24 1016 MR#: [id number] Acct: [id number] Name: BRENDA LE Rep #: [id number] : 1965 58 From: Ana Lilia Lebron DO PCP: ESEQUIEL Headley Status:ADM IN Discharge Instructions Diet Discharge Diet: 1800 Calorie Control Diet DC O2, CPAP, BIPAP needs Home O2 Discharge instructions: No Dressing / Incision Discharge Activity: Return to Normal Activity Follow Up Care Test Results: Test results from this visit will be discussed in further detail at your follow-up appointment, if applicable. Discharge Plan Admission Admit Date/Time: 11/09/24 23:49 Primary Reason for Your Visit: Exacerbation of COPD, pneumonia Attending Provider: Ana Lilia Lebron Primary Care Provider: Shelia Salmon Consulting Providers: Hesham Amato Discharge Orders/Prescriptions Prescriptions: Continued cholecalciferol (vitamin D3) [Vitamin D3] 1,000 UNIT capsule 1,000 unit PO DAILY aspirin 325 MG tablet,delayed release (DR/EC) 325 mg PO DAILY@1600 omeprazole 20 MG capsule,delayed release(DR/EC) 20 mg PO DAILY potassium chloride 20 MEQ tablet 20 meq PO DAILY metoprolol succinate 25 mg Tablet Extended Release 24 Hr 25 mg PO QHS Jardiance 10 mg Tablet 10 mg PO DAILY furosemide 20 mg tablet 20 mg PO DAILY insulin glargine [Lantus Solostar U-100 Insulin] 100 unit/mL (3 mL) insulin pen 48 unit SUBCUT DAILY@1600 clozapine 100 MG tablet 100 mg PO 4X/DAY clonazepam 0.5 mg Tablet 1 mg PO BID pramipexole 0.5 mg Tablet 0.25 mg PO QHS Rx Instructions: Take half table PO at bedtime ferrous sulfate [Feosol] 325 mg (65 mg iron) Tablet 325 mg PO .BID with meals metformin 500 mg tablet extended release 24 hr 1,000 mg PO BID haloperidol 2 mg tablet 2 mg PO QHS guaifenesin [Mucus Relief ER] 1,200 mg tablet extended release 12hr 1,200 mg PO DAILY atorvastatin 10 mg tablet 10 mg PO DAILY benztropine 0.5 mg tablet 0.5 mg PO BID ondansetron 4 mg tablet,disintegrating 4 mg PO Q8H PRN PRN (Reason: Nausea) Qty: 10 0RF ondansetron 4 mg tablet,disintegrating 4 mg PO Q8H PRN PRN (Reason: Nausea) Qty: 14 0RF peg 3350-electrolytes [Golytely] 236-22.74-6.74 -5.86 gram recon soln 240 ml PO Q10M PRN Qty: 4000 0RF Rx Instructions: until fecal effluent is clear docusate sodium 100 mg capsule PO gabapentin 100 mg capsule 3XD omega-3 fatty acids-fish oil 300-1,000 mg capsule Patient Comments: [NO ORIGINAL SIG] Invega Sustenna 234 mg/1.5 mL syringe IM fluticasone furoate-vilanterol [Breo Ellipta] 100-25 mcg/dose blister with device INHALATION DAILY guaifenesin [Mucus Relief ER] 600 mg tablet extended release 12hr PO Patient Comments: [NO ORIGINAL SIG] Incruse Ellipta 62.5 mcg/actuation blister with device INHALATION DAILY prednisone 20 mg tablet 20 mg PO BID Qty: 14 0RF Rx Instructions: Continue this prescription until it runs out then discontinue doxycycline hyclate 100 mg tablet 100 mg PO BID 7 Days Qty: 14 0RF Rx Instructions: Continue doxycycline for a total of 5 more days Discontinued guaifenesin [Mucus Relief ER] 1,200 mg tablet extended release 12hr 1,200 mg PO BID Qty: 20 0RF Referrals / Follow Up: Shelia Salmon CNS [Primary Care Provider] - Within 2 Weeks Disposition Disposition (needs filled in before D/C Order can be placed): Home, Self Care 11/12/24 1040 Ana Lilia Lebron DO CC: ESEQUIEL Salmon; Dr. Hesham Amato DO Signed Normal [facility] deOrdered By: Ana Lilia Lebron on 11-12-2024 Bedside Glucose ([facility] Panel) 213 mg/dL High -106 [facility] Comment on above: MANAGEMENT OF PATIEN T CARE PER NURSING PROTOCOL Bedside Glucoseon 11-11-2024 FINGERSTICK GLU 257 mg/dL High -106 [facility] Comment on above: Result Comment: DANIEL GEMENT OF PATIENT CARE PER NURSING PROTOCOL Performed By: #### L 100.0100 #### [facility] [address] [place], [address] FINGERSTICK GLU 315 mg/dL High [address] [place] [address] Comment on above: Result Comment: DANIEL GEMENT OF PATIENT CARE PER NURSING PROTOCOL Performed By: #### L 500.2500, L100.0100 #### [facility] [address] [place], [address] FINGERSTICK GLU 205 mg/dL High [address] [place] [address] Comment on above: Result Comment: DANIEL GEMENT OF PATIENT CARE PER NURSING PROTOCOL Performed By: #### L 100.0100 #### [facility] [address] [place], [address] FINGERSTICK GLU 247 mg/dL High [address] [place] [address] Comment on above: Result Comment: DANIEL GEMENT OF PATIENT CARE PER NURSING PROTOCOL Performed By: #### L 501.4021 #### [facility] [address] [place], [address] FINGERSTICK GLU 178 mg/dL High [address] [place] [address] Comment on above: Result Comment: DANIEL GEMENT OF PATIENT CARE PER NURSING PROTOCOL Performed By: #### L 100.0100 #### [facility] [address] [place], [address] M100.019on 11-11-2024 M100.019 Negative Normal [facility] Comment on above: Performed By: #### L 500.4050, L501.4020, L501.2450, L100.0500 #### [facility] [address] [place], [address] [id number] By: Hesham Rod on 11-11-2024 SARS-CoV-2 (COVID-19) RNA LUIS M+probe Ql (Unsp spec) [facility] 1,25-dihydroxyvitamin D3 [Ma ss/Vol]Ordered By: Hesham Rod on 11-10-2024 Vitamin D 1,25-Dihydroxy 106.0 pg/mL High 24.8-81.5 [facility] Comment on above: Performed at: [address] [id number] Director: Darcy Schulz MD, Phone: [phone] Absolute neutrophil countOrd ered By: Hesham Rod on 11-10-2024 Neutrophils (Bld) [#/Vol] 8.7 10*3/uL High 2.0-7.7 [facility] Albumin to globulin ratioOrd ered By: Hesham Rod on 11-10-2024 Albumin/Globulin [Mass ratio] 0.7 {ratio} Low 0.9-2.4 [facility] Basophil percentageOrdered B y: Hesham Rod on 11-10-2024 Basophils/100 WBC (Bld) 0.2 % 0-1 [facility] Bedside Glucoseon 11-10-2024 FINGERSTICK GLU 195 mg/dL High 74-106 [facility] Comment on above: Result Comment: DANIEL GEMENT OF PATIENT CARE PER NURSING PROTOCOL Performed By: #### L 501.4021 #### [facility] [address] [place], [address] FINGERSTICK GLU 245 mg/dL High 74-106 [facility] Comment on above: Result Comment: DANIEL GEMENT OF PATIENT CARE PER NURSING PROTOCOL Performed By: #### L 501.4021 #### [facility] [address] [place], [address] FINGERSTICK GLU 278 mg/dL High 74-106 [facility] Comment on above: Result Comment: DANIEL GEMENT OF PATIENT CARE PER NURSING PROTOCOL Performed By: #### L 100.0100 #### [facility] [address] [place], [address] FINGERSTICK GLU 192 mg/dL High 74-106 [facility] Comment on above: Result Comment: DANIEL GEMENT OF PATIENT CARE PER NURSING PROTOCOL Performed By: #### L 100.0100 #### [facility] [address] [place], [address] Bilirubin, totalOrdered By: Hesham Rod on 11-10-2024 Bilirubin [Mass/Vol] 0.50 mg/dL 0.20-1.00 [facility] Comment on above: Slight Lipemia, Resu lt may be falsely increased. For patients on eltrombopag therapy, use of Dimension Icard TBIL is not recommended. Blood urea nitrogen (BUN)/cr eatinine ratioOrdered By: Hesham Rod on 11-10-2024 Urea nitrogen/Creatinine [Mass ratio] 23.0 mg/mg High 10-20 [facility] CBC W/Diff, Automatedon - MCHC (RBC) [Mass/Vol] 32.0 g/dL Normal 32-36 [facility] Comment on above: Result Comment: H H CHNAGE Performed By: #### L 100.0100 #### [facility] [address] [place], [address] Absolute Lymph 0.92 X10 3/uL Normal 0.83-4.51 [facility] Comment on above: Performed By: #### L 100.0100 #### [facility] [address] [place], [address] Absolute Neut 8.7 X10 3/uL High 2.0-7.7 [facility] Comment on above: Performed By: #### L 100.0100 #### [facility] [address] [place], [address] Basophils/100 WBC (Bld) 0.2 % Normal 0-1 [facility] Comment on above: Performed By: #### L 100.0100 #### [facility] [address] [place], [address] Eosinophils/100 WBC (Bld) 0.0 % Normal 0-5 [facility] Comment on above: Performed By: #### L 100.0100 #### [facility] [address] [place], [address] Erythrocyte distribution width (RBC) [Ratio] 14.3 % Normal 11.6-14.6 [facility] Comment on above: Performed By: #### L 100.0100 #### [facility] [address] [place], [address] Hematocrit (Bld) [Volume fraction] 37.8 % Normal 37-47 [facility] Comment on above: Performed By: #### L 100.0100 #### [facility] [address] [place], [address] Hemoglobin (Bld) [Mass/Vol] 12.1 g/dL Normal 12.0-15.0 [facility] Comment on above: Performed By: #### L 100.0100 #### [facility] [address] [place], [address] IG% 0.700 Normal 0.0-0.9 [facility] Comment on above: Result Comment: IG% - Immature Granulocytes (promyelocytes, myelocytes and metamyelocytes) > 1% indicates that a LEFT SHIFT is Present. Performed By: #### L 100.0100 #### [facility] [address] [place], [address] Lymphocytes/100 WBC (Bld) 9.3 % Low 19-41 [facility] Comment on above: Performed By: #### L 100.0100 #### [facility] [address] [place], [address] MCH (RBC) [Entitic mass] 28.6 pg Normal 27.0-32.0 [facility] Comment on above: Performed By: #### L 100.0100 #### [facility] [address] [place], [address] MCV (RBC) [Entitic vol] 89.4 fL Normal 81-99 [facility] Comment on above: Performed By: #### L 100.0100 #### [facility] [address] [place], [address] Monocytes/100 WBC (Bld) 1.6 % Normal 0-10 [facility] Comment on above: Performed By: #### L 100.0100 #### [facility] [address] [place], [address] Neutrophils/100 WBC (Bld) 88.2 % High 47-70 [facility] Comment on above: Performed By: #### L 100.0100 #### [facility] [address] [place], [address] Nucleated RBC (Bld) [#/Vol] 0 10*3/uL Normal 0-5 [facility] Comment on above: Performed By: #### L 100.0100 #### [facility] [address] [place], [address] Platelet mean volume (Bld) [Entitic vol] 9.2 fL Normal 6.2-12.0 [facility] Comment on above: Performed By: #### L 100.0100 #### [facility] [address] [place], [address] Platelets (Bld) [#/Vol] 223 10*3/uL Normal 150-450 [facility] Comment on above: Performed By: #### L 100.0100 #### [facility] [address] [place], [address] RBC (Bld) [#/Vol] 4.23 10*6/uL Normal 4.2-5.4 [facility] Comment on above: Performed By: #### L 100.0100 #### [facility] [address] [place], [address] RDW SD 46.2 fl High 35.1-43.9 [facility] Comment on above: Performed By: #### L 100.0100 #### [facility] [address] [place], [address] WBC (Bld) [#/Vol] 9.9 10*3/uL Normal 4.4-11.0 [facility] Comment on above: Performed By: #### L 100.0100 #### [facility] [address] [place], [address] CNPNon 11-10-2024 CNPN Normal [facility] Carbon dioxide measurementOr dered By: Hesham Rod on 11-10-2024 CO2 [Moles/Vol] 22.0 mmol/L 21.0-32.0 [facility] Comment on above: Slight Lipemia, Resu lt may be falsely increased. Chloride measurementOrdered By: Hesham Rod on 11-10-2024 Chloride [Moles/Vol] 104 mmol/L 98-107 [facility] Comprehensive Metabolic Prof ilon 11-10-2024 Albumin [Mass/Vol] 3.1 g/dL Low 3.2-5.0 [facility] Comment on above: Performed By: #### L 100.0100 #### [facility] [address] [place], [address] Albumin/Globulin [Mass ratio] 0.7 {ratio} Low 0.9-2.4 [facility] Comment on above: Performed By: #### L 100.0100 #### [facility] [address] [place], [address] ALK P 159 U/L High 45-117 [facility] Comment on above: Performed By: #### L 100.0100 #### [facility] [address] [place], [address] ALT [Catalytic activity/Vol] 90 U/L High 13-56 [facility] Comment on above: Result Comment: Slig ht Lipemia, Result may be falsely increased. Performed By: #### L 100.0100 #### [facility] [address] [place], [address] AST [Catalytic activity/Vol] 50 U/L High 15-37 [facility] Comment on above: Result Comment: Slig ht Lipemia, Result may be falsely increased. Performed By: #### L 100.0100 #### [facility] [address] [place], [address] Bilirubin [Mass/Vol] 0.50 mg/dL Normal 0.20-1.00 [facility] Comment on above: Result Comment: Slig ht Lipemia, Result may be falsely increased. For patients on eltrombopag therapy, use of Dimension Icard TBIL is not recommended. Performed By: #### L 100.0100 #### [facility] [address] [place], [address] BUN/CRE 23.0 RATIO High 10-20 [facility] Comment on above: Performed By: #### L 100.0100 #### [facility] [address] [place], [address] CA,Total 8.5 mg/dL Normal 8.5-10.1 [facility] Comment on above: Result Comment: Slig ht Lipemia, Result may be falsely increased. Performed By: #### L 100.0100 #### [facility] [address] [place], [address] Chloride [Moles/Vol] 104 mmol/L Normal 98-107 [facility] Comment on above: Performed By: #### L 100.0100 #### [facility] [address] [place], [address] CO2 [Moles/Vol] 22.0 mmol/L Normal 21.0-32.0 [facility] Comment on above: Result Comment: Slig ht Lipemia, Result may be falsely increased. Performed By: #### L 100.0100 #### [facility] [address] [place], [address] Creatinine [Mass/Vol] 0.43 mg/dL Low 0.55-1.02 [facility] Comment on above: Result Comment: Slig ht Lipemia, Result may be falsely increased. The validity of the calculated GFR GFRAA in patients over 70 years has not been determined. Clinical correlation is essential. Performed By: #### L 100.0100 #### [facility] [address] [place], [address] ECRCL 135.92 ml/min Normal [facility] Comment on above: Performed By: #### L 100.0100 #### [facility] [address] [place], [address] EST GFR - AA 190 mL/min Normal >60 [facility] Comment on above: Result Comment: Afri can Vietnamese GFR Calc Performed By: #### L 100.0100 #### [facility] [address] [place], [address] GAP 10 Normal 5-15 [facility] Comment on above: Performed By: #### L 100.0100 #### [facility] [address] [place], [address] GFR/1.73 sq M.predicted among non-blacks MDRD (S/P/Bld) [Vol rate/Area] 157 mL/min/{1.73_m2} Normal >60 [facility] Comment on above: Result Comment: Non- GFR Calc Performed By: #### L 100.0100 #### [facility] [address] [place], [address] Globulin (S) [Mass/Vol] 4.3 g/dL High 2.2-4.2 [facility] Comment on above: Performed By: #### L 100.0100 #### [facility] [address] [place], [address] Glucose [Mass/Vol] 179 mg/dL High 74-106 [facility] Comment on above: Result Comment: Slig ht Lipemia, Result may be falsely increased. Fasting Glucose result greater than or equal to 126 mg/dL suggests DIABETES MELLITUS per A.D.A. criteria. Performed By: #### L 100.0100 #### [facility] [address] [place], [address] Potassium [Moles/Vol] 3.8 mmol/L Normal 3.5-5.1 [facility] Comment on above: Result Comment: Slig ht Lipemia, Result may be falsely increased. Performed By: #### L 100.0100 #### [facility] [address] [place], [address] Sodium [Moles/Vol] 136 mmol/L Normal 136-145 [facility] Comment on above: Performed By: #### L 100.0100 #### [facility] [address] [place], [address] T PROT 7.4 g/dL Normal 6.4-8.2 [facility] Comment on above: Result Comment: Slig ht Lipemia, Result may be falsely increased. Performed By: #### L 100.0100 #### [facility] [address] [place], [address] Urea nitrogen [Mass/Vol] 10 mg/dL Normal 7-18 [facility] Comment on above: Result Comment: Slig ht Lipemia, Result may be falsely increased. Performed By: #### L 100.0100 #### [facility] [address] [place], [address] Eosinophil percentageOrdered By: Hesham Rod on 11-10-2024 Eosinophils/100 WBC (Bld) 0.0 % 0-5 [facility] Erythrocyte distribution wid th ratioOrdered By: eHsham Rod on 11-10-2024 Erythrocyte distribution width (RBC) [Ratio] 14.3 % 11.6-14.6 [facility] Erythrocyte distribution wid th standard deviationOrdered By: Hesham Rod on 11-10-2024 Erythrocyte distribution width (RBC) [Entitic vol] 46.2 fL High 35.1-43.9 [facility] Estimated glomerular filtrat ion rate (GFR) AmericanOrdered By: Hesham Rod on 11-10-2024 Estimated GFR (MDRD) Amer 190 mL/min >60 [facility] Comment on above: GFR Calc Estimation of creatinine epi aranceOrdered By: Hesham Rod on 11-10-2024 Estimated Creatinine Clearance Calc 135.92 ml/min [facility] Glomerular filtration rate ( GFR) estimationOrdered By: Hesham Rod on 11-10-2024 Estimated GFR (MDRD) Non-Af Amer 157 mL/min >60 [facility] Comment on above: Non- GFR Calc Glucose measurementOrdered B y: Hesham Rod on 11-10-2024 Glucose [Mass/Vol] 179 mg/dL High 74-106 [facility] Comment on above: Slight Lipemia, Resu lt may be falsely increased.Fasting Glucose result greater than or equal to 126 mg/dL suggests DIABETES MELLITUS per A.D.A. criteria. Hematocrit Auto (Bld) [Volum e fraction]Ordered By: Hesham Rod on 11-10-2024 Hematocrit (Bld) [Volume fraction] 37.8 % 37-47 [facility] Hemoglobin A1con 11-10-2024 HbA1c (Bld) [Mass fraction] 6.8 % High 3.8-5.6 [facility] Comment on above: Result Comment: Norm al < 5.7 % Prediabetic 5.7 - 6.4 % Diabetic >or= 6.5 % Please note range changes. Performed By: #### L 581.4305 #### [facility] [address] [place], [address] Hemoglobin A1c percentageOrd ered By: Hesham Rod on 11-10-2024 HbA1c (Bld) [Mass fraction] 6.8 % High 3.8-5.6 [facility] Comment on above: Normal < 5.7 % Predi abetic 5.7 - 6.4 % Diabetic >or= 6.5 % Please note range changes. Hemoglobin measurementOrdere d By: Hesham Rod on 11-10-2024 Hemoglobin (Bld) [Mass/Vol] 12.1 g/dL 12.0-15.0 [facility] Immature granulocytes/100 WB C Auto (Bld)Ordered By: Hesham Rod on 11-10-2024 Immature granulocytes/100 WBC (Bld) 0.700 % 0.0-0.9 [facility] Comment on above: IG% - Immature Granu locytes (promyelocytes, myelocytes and metamyelocytes) > 1% indicates that a LEFT SHIFT is Present. L. pneumophila Ag Ql (U)Orde red By: Hesham Rod on 11-10-2024 Legionella Antigen [facility] - Chemistry and C hemistry - challengeOrdered By: Hesham Rod on 11-10-2024 AST [Catalytic activity/Vol] 50 U/L High 15-37 [facility] Comment on above: Slight Lipemia, Resu lt may be falsely increased. Legionella Antigen Urineon 0 11-10-2024 LEGU URINE, CLEAN CATCH Legionella Antigen result interpretation: L pneumo Ag Ur Ql Negative Presumptive negative for Legionella pneumophila serogroup 1 antigen in urine, suggesting no recent or current infection. Legionella Ag, Urine Negative (See interpretation below) Normal [facility] Comment on above: Performed By: #### L 500.2500, L100.0100 #### [facility] [address] [place], [address] Lymphocytes Auto (Unsp spec) [#/Vol]Ordered By: Hesham Rod on 11-10-2024 Lymphocytes (Bld) [#/Vol] 0.92 10*3/uL 0.83-4.51 [facility] Lymphocytes/100 WBC Auto (Un sp spec)Ordered By: Hesham Rod on 11-10-2024 Lymphocytes/100 WBC (Bld) 9.3 % Low 19-41 [facility] M R Staph Aureus DNA by PCRo n 11-10-2024 MRSA DNA ASSAY Negative Normal Negative [facility] Comment on above: Performed By: #### L 500.2500, L100.0100 #### [facility] [address] [place], [place], [address] MCV (mean corpuscular volume ) determinationOrdered By: Hesham Rod on 11-10-2024 MCV (RBC) [Entitic vol] 89.4 fL 81-99 [facility] MRSA detection PCROrdered By : Hesham Rod on 11-10-2024 Methicillin-Resist S.aureus DNA PCR Negative Negative [facility] Magnesiumon 11-10-2024 Magnesium [Mass/Vol] 2.2 mg/dL Normal 1.6-2.6 [facility] Comment on above: Result Comment: Slig ht Lipemia, Result may be falsely increased. Performed By: #### L 500.2500, L100.0100 #### [facility] [address] [place], [place], [address] Magnesium measurementOrdered By: Hesham Rod on 11-10-2024 Magnesium [Mass/Vol] 2.2 mg/dL 1.6-2.6 [facility] Comment on above: Slight Lipemia, Resu lt may be falsely increased. Mean corpuscular hemoglobin (MCH) determinationOrdered By: Hesham Rod on 11-10-2024 MCH (RBC) [Entitic mass] 28.6 pg 27.0-32.0 [facility] Mean corpuscular hemoglobin concentration (MCHC) determinationOrdered By: Hesham Rod on 11-10-2024 MCHC (RBC) [Mass/Vol] 32.0 g/dL 32-36 [facility] Comment on above: Delta: 33.7 on 11/09-1907H&H CHNAGE Mean platelet volume determi nationOrdered By: Hesham Rod on 11-10-2024 Platelet mean volume (Bld) [Entitic vol] 9.2 fL 6.2-12.0 [facility] Monocyte percentageOrdered B y: Hesham Rod on 11-10-2024 Monocytes/100 WBC (Bld) 1.6 % 0-10 [facility] Neutrophil percentageOrdered By: Hesham Rod on 11-10-2024 Neutrophils/100 WBC (Bld) 88.2 % High 47-70 [facility] Nucleated red blood cell per centageOrdered By: Hesham Rod on 11-10-2024 Nucleated RBC/100 WBC (Bld) [Ratio] 0 % 0-5 [facility] Osmolality (U) [Osmolality]O rdered By: eHsham Rod on 11-10-2024 Urine Osmolality 201 mOsm/KG >50 [facility] Comment on above: Normal Urine Referen ce Ranges Random: 50 - 1200 mOsm/kg H20 depending on fluid intake Random: >850 mOsm/kg after 12 hour fluid restriction 24 hour: ~300 - 900 mOsm/kg H2O Osmolality, Serumon 11-10-19 25 OSMOLALITY,SER 283 mOsm/KG Normal 275-295 [facility] Comment on above: Performed By: #### L 501.4021 #### [facility] [address] [place], [place], [id number] (600) Osmolality, Urineon 11-10-19 25 OSMOLALITY,UR 201 mOsm/KG Normal [facility] Comment on above: Result Comment: Normal Urine Reference Ranges Random: 50 - 1200 mOsm/kg H20 depending on fluid intake Random: >850 mOsm/kg after 12 hour fluid restriction 24 hour: 300 - 900 mOsm/kg H2O Performed By: #### L 500.2500, L100.0100 #### [facility] [address] [place], [address] Osmolality, serumOrdered By: Hesham Rod on 11-10-2024 Serum Osmolality 283 mOsm/KG 275-295 [facility] Phosphoruson 11-10-2024 Phosphate [Mass/Vol] 3.2 mg/dL Normal 2.5-4.9 [facility] Comment on above: Result Comment: Slig ht Lipemia, Result may be falsely increased. Performed By: #### L 500.2500, L100.0100 #### [facility] [address] [place], [place], [id number] Phosphorus measurementOrdere d By: Hesham Rod on 11-10-2024 Phosphorus Level 3.2 mg/dL 2.5-4.9 [facility] Comment on above: Slight Lipemia, Resu lt may be falsely increased. Platelet countOrdered By: Carlos Rod on 11-10-2024 Platelets (Bld) [#/Vol] 223 10*3/uL 150-450 [facility] Potassium measurementOrdered By: Hesham Rod on 11-10-2024 Potassium [Moles/Vol] 3.8 mmol/L 3.5-5.1 [facility] Comment on above: Slight Lipemia, Resu lt may be falsely increased. RBC Auto (Bld) [#/Vol]Ordere d By: Hesham Rod on 11-10-2024 RBC (Bld) [#/Vol] 4.23 10*6/uL 4.2-5.4 [facility] RESPIRATORY PANEL MOLECULARo n 11-10-2024 RP PANEL Normal Reference Ran ge = Not Detected Nucleic acid amplification test method ADENOVIRUS Not Detected INFLUENZA A Not Detected INFLUENZA A (SUBTYPE H1) Not Detected INFLUENZA A (SUBTYPE H3) Not Detected INFLUENZA B Not Detected HUMAN METAPHNEUMO Not Detected PARAINFLUENZA 1 Not Detected PARAINFLUENZA 2 Not Detected PARAINFLUENZA 3 Not Detected PARAINFLUENZA 4 Not Detected RHINOVIRUS Not Detected RSV A Not Detected RSV B Not Detected Normal [facility] Comment on above: Performed By: #### L 500.4050, L501.4020, L501.2450, L100.0500 #### [facility] [address] [place], [address] Respiratory pathogens DNA an d RNA panel LUIS M+probe (Resp)Ordered By: Hesham Rod on 11-10-2024 Respiratory Panel (PCR) [facility] Serum anion gap measurementO rdered By: Hesham Rod on 11-10-2024 Anion gap [Moles/Vol] 10 mmol/L 5-15 [facility] Serum globulin measurementOr dered By: Hesham Rod on 11-10-2024 Globulin (S) [Mass/Vol] 4.3 g/dL High 2.2-4.2 [facility] Serum or plasma alanine angulo otransferase (ALT) measurementOrdered By: Hesham Rod on 11-10-2024 ALT [Catalytic activity/Vol] 90 U/L High 13-56 [facility] Comment on above: Slight Lipemia, Resu lt may be falsely increased. Serum or plasma albumin lawrence urement (mass/volume)Ordered By: Hesham Rod on 11-10-2024 Albumin [Mass/Vol] 3.1 g/dL Low 3.2-5.0 [facility] Serum or plasma alkaline jakob sphatase measurementOrdered By: Hesham Rod on 11-10-2024 ALP [Catalytic activity/Vol] 159 U/L High 45-117 [facility] Serum or plasma calcium lawrence urement (mass/volume)Ordered By: Hesham Rod on 11-10-2024 Calcium [Mass/Vol] 8.5 mg/dL 8.5-10.1 [facility] Comment on above: Slight Lipemia, Resu lt may be falsely increased. Serum or plasma creatinine m easurement (mass/volume)Ordered By: Hesham Rod on 11-10-2024 Creatinine [Mass/Vol] 0.43 mg/dL Low 0.55-1.02 [facility] Comment on above: Slight Lipemia, Resu lt may be falsely increased.The validity of the calculated GFR & GFRAA in patients over 70 years has not been determined. Clinical correlation is essential. Serum or plasma urea nitroge n measurement (mass/volume)Ordered By: Hesham Rod on 11-10-2024 Urea nitrogen [Mass/Vol] 10 mg/dL 7-18 [facility] Comment on above: Slight Lipemia, Resu lt may be falsely increased. Sodium levelOrdered By: Bennie Rod on 11-10-2024 Sodium [Moles/Vol] 136 mmol/L 136-145 [facility] Strep pneumoniae Antig(UR,CS F)on 11-10-2024 STPAG URINE, CLEAN CATCH URINE INTERPRETATION Strep pneumoniae Antig(UR,CSF) Negative Urine Presumptive negative for pneumococcal pneumonia, suggesting no current or recent pneumococcal infection. Infection due to S pneumoniae cannot be ruled out since the antigen present in the sample may be below the detection limit of the test. Strep pneumo Test Negative URINE (See interpretation below) Normal [facility] Comment on above: Performed By: #### L 500.2500, L100.0100 #### [facility] [address] [place], [place], [id number] Streptococcus pneumoniae ant igen assayOrdered By: Hesham Rod on 11-10-2024 Streptococcus pneumoniae Antigen (M [facility] TSH QnOrdered By: Hesham maynard on 11-10-2024 Thyroid Stimulating Hormone (TSH) 0.831 uIU/mL 0.358-3.740 [facility] Thyroid Stim Hormone (TSH)on 11-10-2024 TSH 0.831 uIU/mL Normal 0.358-3.740 [facility] Comment on above: Performed By: #### L 501.4021 #### [facility] [address], [place], [id number] Total proteinOrdered By: Wes Rod on 11-10-2024 Protein [Mass/Vol] 7.4 g/dL 6.4-8.2 [facility] Comment on above: Slight Lipemia, Resu lt may be falsely increased. White blood cell (WBC) count Ordered By: Hesham Rod on 11-10-2024 WBC (Bld) [#/Vol] 9.9 10*3/uL 4.4-11.0 [facility] 12 Lead EKGon 11-09-2024 12 Lead EKG [facility] [address] [place] [address] 12 Lead EKG 11/09/242024 MR#: [id number] Acct: [id number] Name: BRENDA LE Shawanda Rep #: [id number] : 1965 58 From: Gary Bose MD Attending Dr: Dr. Ana Lilia Lebron DO Status: A DM IN Ordering Dr: Francisco Thompson DO Date: 11/09/24 Location: [facility] Sex: F C Admitted: 11/09/24 Test Reason : DYSRHYTHMIA Blood Pressure : */* mmHG Vent. Rate : 103 BPM Atrial Rate : 103 BPM P-R Int : 154 ms QRS Dur : 76 ms QT Int : 320 ms P-R-T Axes : 44 6 48 degrees QTcB Int : 419 ms Sinus tachycardia Low voltage QRS Septal infarct , age undetermined Abnormal ECG Confirmed by TAMMY SANDERS, GLORIA ([id number]), editor continuity and script CRISTAL OTT ([id number]) on 11/11/2024 6:40:18 AM Referred By: Confirmed By: GLORIA BOSE MD 11/11/24 0640 Date Gary Bose MD CC: ESEQUIEL Salmon; Dr. Francisco Thompson DO; Dr. Ana Lilia Lebron DO Signed Normal [facility] Basic Metabolic Profile (BMP )on 11-09-2024 BUN/CRE 25.0 RATIO High 10-20 [facility] Comment on above: Performed By: #### L 500.2500, L100.0100 #### [facility] [address] [place], [address] CA,Total 9.2 mg/dL Normal 8.5-10.1 [facility] Comment on above: Performed By: #### L 500.2500, L100.0100 #### [facility] [address] [place], [address] Chloride [Moles/Vol] 100 mmol/L Normal 98-107 [facility] Comment on above: Performed By: #### L 500.2500, L100.0100 #### [facility] [address] [place], [address] CO2 [Moles/Vol] 21.0 mmol/L Normal 21.0-32.0 [facility] Comment on above: Performed By: #### L 500.2500, L100.0100 #### [facility] [address] [place], [address] Creatinine [Mass/Vol] 0.56 mg/dL Normal 0.55-1.02 [facility] Comment on above: Result Comment: The validity of the calculated GFR GFRAA in patients over 70 years has not been determined. Clinical correlation is essential. Performed By: #### L 500.2500, L100.0100 #### [facility] [address] [place], [address] ECRCL 105.16 ml/min Normal [facility] Comment on above: Performed By: #### L 500.2500, L100.0100 #### [facility] [address] [place], [address] EST GFR - AA 142 mL/min Normal >60 [facility] Comment on above: Result Comment: Afri can Vietnamese GFR Calc Performed By: #### L 500.2500, L100.0100 #### [facility] [address] [place], [address] GAP 9 Normal 5-15 [facility] Comment on above: Performed By: #### L 500.2500, L100.0100 #### [facility] [address] [place], [address] GFR/1.73 sq M.predicted among non-blacks MDRD (S/P/Bld) [Vol rate/Area] 117 mL/min/{1.73_m2} Normal >60 [facility] Comment on above: Result Comment: Non- GFR Calc Performed By: #### L 500.2500, L100.0100 #### [facility] [address] [place], [address] Glucose [Mass/Vol] 164 mg/dL High 74-106 [facility] Comment on above: Result Comment: Fast ing Glucose result greater than or equal to 126 mg/dL suggests DIABETES MELLITUS per A.D.A. criteria. Performed By: #### L 500.2500, L100.0100 #### [facility] [address] [place], [address] Potassium [Moles/Vol] 3.8 mmol/L Normal 3.5-5.1 [facility] Comment on above: Performed By: #### L 500.2500, L100.0100 #### [facility] [address] [place], [address] Sodium [Moles/Vol] 130 mmol/L Low 136-145 [facility] Comment on above: Performed By: #### L 500.2500, L100.0100 #### [facility] [address] [place], [address] Urea nitrogen [Mass/Vol] 14 mg/dL Normal 7-18 [facility] Comment on above: Performed By: #### L 500.2500, L100.0100 #### [facility] [address] [place], [address] Bedside Glucoseon 11-09-2024 FINGERSTICK GLU 154 mg/dL High 74-106 [facility] Comment on above: Result Comment: DANIEL EDINSONENT OF PATIENT CARE PER NURSING PROTOCOL Performed By: #### L 500.2500, L100.0100 #### [facility] [address] [place], [address] Bilirubin directOrdered By: Francisco Thompson on 11-09-2024 Bilirubin.direct [Mass/Vol] 0.28 mg/dL 0.00-0.30 [facility] Blood cultureOrdered By: Jovi Thompson on 11-09-2024 Bacteria identified Cx Nom (Bld) No growth in 5 days. [facility] CBC W/Diff, Automatedon 10-14 Absolute Lymph 1.89 X10 3/uL Normal 0.83-4.51 [facility] Comment on above: Performed By: #### L 500.2500, L100.0100 #### [facility] [address] [place], [address] Absolute Neut 8.8 X10 3/uL High 2.0-7.7 [facility] Comment on above: Performed By: #### L 500.2500, L100.0100 #### [facility] [address] [place], [address] Basophils/100 WBC (Bld) 0.5 % Normal 0-1 [facility] Comment on above: Performed By: #### L 500.2500, L100.0100 #### [facility] [address] [place], [address] Eosinophils/100 WBC (Bld) 0.1 % Normal 0-5 [facility] Comment on above: Performed By: #### L 500.2500, L100.0100 #### [facility] [address] [place], [address] Erythrocyte distribution width (RBC) [Ratio] 14.2 % Normal 11.6-14.6 [facility] Comment on above: Performed By: #### L 500.2500, L100.0100 #### [facility] [address] [place], [address] Hematocrit (Bld) [Volume fraction] 39.8 % Normal 37-47 [facility] Comment on above: Performed By: #### L 500.2500, L100.0100 #### [facility] [address] [place], [address] Hemoglobin (Bld) [Mass/Vol] 13.4 g/dL Normal 12.0-15.0 [facility] Comment on above: Performed By: #### L 500.2500, L100.0100 #### [facility] [address] [place], [address] IG% 0.400 Normal 0.0-0.9 [facility] Comment on above: Result Comment: IG% - Immature Granulocytes (promyelocytes, myelocytes and metamyelocytes) > 1% indicates that a LEFT SHIFT is Present. Performed By: #### L 500.2500, L100.0100 #### [facility] [address] [place], [address] Lymphocytes/100 WBC (Bld) 15.5 % Low 19-41 [facility] Comment on above: Performed By: #### L 500.2500, L100.0100 #### [facility] [address] [place], [address] MCH (RBC) [Entitic mass] 29.1 pg Normal 27.0-32.0 [facility] Comment on above: Performed By: #### L 500.2500, L100.0100 #### [facility] [address] [place], [address] MCHC (RBC) [Mass/Vol] 33.7 g/dL Normal 32-36 [facility] Comment on above: Performed By: #### L 500.2500, L100.0100 #### [facility] [address] [place], [address] MCV (RBC) [Entitic vol] 86.3 fL Normal 81-99 [facility] Comment on above: Performed By: #### L 500.2500, L100.0100 #### [facility] [address] [place], [address] Monocytes/100 WBC (Bld) 12.0 % High 0-10 [facility] Comment on above: Performed By: #### L 500.2500, L100.0100 #### [facility] [address] [place], [address] Neutrophils/100 WBC (Bld) 71.5 % High 47-70 [facility] Comment on above: Performed By: #### L 500.2500, L100.0100 #### [facility] [address] [place], [address] Nucleated RBC (Bld) [#/Vol] 0 10*3/uL Normal 0-5 [facility] Comment on above: Performed By: #### L 500.2500, L100.0100 #### [facility] [address] [place], [address] Platelet mean volume (Bld) [Entitic vol] 9.3 fL Normal 6.2-12.0 [facility] Comment on above: Performed By: #### L 500.2500, L100.0100 #### [facility] [address] [place], [address] Platelets (Bld) [#/Vol] 239 10*3/uL Normal 150-450 [facility] Comment on above: Performed By: #### L 500.2500, L100.0100 #### [facility] [address] [place], [address] RBC (Bld) [#/Vol] 4.61 10*6/uL Normal 4.2-5.4 [facility] Comment on above: Performed By: #### L 500.2500, L100.0100 #### [facility] [address] [place], [address] RDW SD 44.9 fl High 35.1-43.9 [facility] Comment on above: Performed By: #### L 500.2500, L100.0100 #### [facility] [address] [place], [address] WBC (Bld) [#/Vol] 12.2 10*3/uL High 4.4-11.0 [facility] Comment on above: Performed By: #### L 500.2500, L100.0100 #### [facility] [address] [place], [address] CNOVon 11-09-2024 CNOV Normal [facility] Chest 1 View (Portable)on Chest 1 View (Portable) [facility] Imaging Services [address] [address] Chest 1 View (Portable) MR#: [id number] Acct: [id number] Name: LOTTIEBRENDA Mayberry Rep #: [id number] : 1965 F 58 From: Adriano Mejia DO PCP: ESEQUIEL Headley Status: PRE ER Study: Chest 1 View (Portable) Date of Exam: 11/09/24 Exam# [id number] Ordering Dr: Provider,Ed P. PROCEDURE: CHEST 1 VIEW (PORTABLE) REASON FOR EXAM: Cough. Congestion. TECHNIQUE: Single frontal image including the chest and abdomen. COMPARISON: CT thorax dated 05/04/2024. Prior chest x-ray dated 10/24/2023 FINDINGS: The lungs are well aerated. Patchy bibasilar airspace disease/infiltrates slightly more confluent on the left. No pneumothorax. No sizeable effusions. Remaining lung markings otherwise appears stable. Heart size and great vessels are within normal limits. The osseous thorax appears intact. RAD/Chest 1 View (Portable) IMPRESSION: Patchy bibasilar airspace disease/infiltrates, slightly more confluent on the left. Correlate for an infectious or inflammatory process. Follow-up to resolution recommended. Reading Location: [facility] CC: MANAGER MAIL Shelia Salmon; ED PHYSICIAN PROVIDER Punchboard Filling Machine Operator: Signed Normal [facility] Emergency Department Summary on 11-09-2024 Emergency Department Summary [facility] Medical Records Department [address] [place] [address] Emergency Department Summary 11/09/24 MR#: [id number] Acct: [id number] Name: BRENDA LE Shawanda Rep #: [id number] : 1965 58 From: Francisco Thompson DO PCP: Shelia Suppan, MANAGER MAIL Status:REG ER Location: ED HPI History of Present Illness Chief Complaint: Shortness of Breath Informant: patient and mental health staff Narrative Narrative: 58-year-old female from [facility] long term presenting to the emergency room with fever and cough. There is reported that around the of this month she had a viral URI. bindery worker states that today she looked much ill or and took her to urgent care where urgent care felt that she had pneumonia. They recommended that she come to emergency when it was discovered that the group controller stated they cannot give her any medicine or breathing treatments tonight unless it was on a med sheet. They do not have med sheets for the new medication and they did not feel comfortable administering it. Patient notes that about 2 weeks ago she had some vomiting and diarrhea. That has resolved. She notes nasal congestion cough and wheezing. She had Tylenol around 1800 hrs. at the urgent care. She is a former smoker. She does have a history of COPD. 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 Obesity Anxiety and depression Type 2 diabetes mellitus COPD (chronic obstructive pulmonary disease) Restless leg syndrome GERD (gastroesophageal reflux disease) Schizophrenia HTN (hypertension) Hyperlipidemia Home Medications ???Medication ???Instructions ???Recorded ???Last Taken ???Type cholecalciferol (vitamin D3) 25 1,000 unit PO DAILY SUPPLEMENT 10/17/17 07/30/21 History mcg (1,000 unit) capsule (Vitamin D3) aspirin 325 mg tablet,delayed 325 mg PO DAILY@1600 heart health 07/22/18 07/30/21 History release omeprazole 20 mg capsule,delayed 20 mg PO DAILY indigestion 10/31/19 07/30/21 History release potassium chloride 20 mEq 20 meq PO DAILY supplement 11/16/19 07/30/21 History tablet,extended release(part/cryst) clozapine 100 mg tablet 100 mg PO 4X/DAY SCHIZOPHRENIA 07/30/21 07/30/21 History empagliflozin 10 mg tablet 10 mg PO DAILY diabetes 07/30/21 07/30/21 History (Jardiance) furosemide 20 mg tablet 20 mg PO DAILY FLUID 07/30/21 07/30/21 History insulin glargine 100 unit/mL (3 48 unit subcut DAILY@1600 DM 07/30/21 07/30/21 History mL) subcutaneous pen (Lantus Solostar U-100 Insulin) metoprolol succinate 25 mg 25 mg PO QHS HTN 07/30/21 07/29/21 History tablet,extended release 24 hr clonazepam 0.5 mg tablet 1 mg PO BID schizophrenia 06/05/22 Unknown History ferrous sulfate 325 mg (65 mg 325 mg PO .BID with meals anemia 06/05/22 Unknown History iron) tablet (Feosol) pramipexole 0.5 mg tablet 0.25 mg PO QHS restless legs 06/05/22 Unknown History atorvastatin 10 mg tablet 10 mg PO DAILY Cholesterol 08/14/23 Unknown History guaifenesin 1,200 mg tablet, 1,200 mg PO DAILY congestion 08/14/23 Unknown History extended release 12 hr (Mucus Relief ER) haloperidol 2 mg tablet 2 mg PO QHS anxiety 08/14/23 Unknown History metformin 500 mg tablet,extended 1,000 mg PO BID Diabetes 08/14/23 Unknown History release 24 hr benztropine 0.5 mg tablet 0.5 mg PO BID tremors 08/15/23 Unknown History doxycycline hyclate 100 mg tablet 100 mg PO BID 7 days #14 tabs 08/16/23 Unknown Rx guaifenesin 1,200 mg tablet, 1,200 mg PO BID #20 tabs 08/16/23 Unknown Rx extended release 12 hr (Mucus Relief ER) prednisone 20 mg tablet 20 mg PO BID #14 tabs 08/16/23 Unknown Rx ondansetron 4 mg disintegrating 4 mg PO Q8H PRN PRN Nausea #14 tabs 12/13/23 Unknown Rx tablet peg 3350-electrolytes 236 240 ml PO Q10M PRN #4,000 mL 12/13/23 Unknown Rx gram-22.74 gram-6.74 gram-5.86 gram solution (Golytely) ondansetron 4 mg disintegrating 4 mg PO Q8H PRN PRN Nausea #10 tabs 10/14/24 Unknown Rx tablet docusate sodium 100 mg capsule mg PO 11/09/24 Unknown History fluticasone furoate 100 inhalation DAILY 11/09/24 Unknown History mcg-vilanterol 25 mcg/dose inhalation powder (Breo Ellipta) gabapentin 100 mg capsule mg 3XD 11/09/24 Unknown History guaifenesin 600 mg tablet, mg PO 11/09/24 Unknown History extended release 12 hr (Mucus Relief ER) omega-3 fatty acids-fish oil 300 cap 11/09/24 Unknown History mg-1,000 mg capsule paliperidone palmitate 234 mg/1.5 mg IM 11/09/24 Unknown History mL intramuscular syringe (Invega Sustenna) umeclidinium 62.5 mcg/actuation inhalation DAILY 11/09/24 Unknown History blister powder for inhalation (Incruse Ellipta) Allergy/AdvReac Type Severity Reaction Status Date / Time No Known Allergies Allergy Verified (more content not included)... Normal [facility] H AND P Exam - Hospitaliston 11-09-2024 H&P Exam - Hospitalist [facility] Medical Records Department [address] [place] [address] H P Exam - Hospitalist 11/09/24 2321 MR#: [id number] Acct: [id number] Name: BRENDA LE Rep #: [id number] : 1965 58 From: Hesham Amato DO PCP: Shelia Salmon, MANAGER MAIL Status:ADM IN [place] [facility] [place] HPI - General General Date of Admission: 11/09/24 Date of Service: 11/09/24 Chief Complaint: SOB and Wheezing. HPI Narrative BRENDA LE, is a 58 F with a past medical history of essential hypertension; on metoprolol and furosemide, hyperlipidemia; on atorvastatin, obesity; with BMI of 35.1 this admission, LIDA; on CPAP, DM-2; of unknown control; on metformin, empagliflozin and insulin glargine 48U daily, former tobacco abuse (quit 9 years ago); with subsequent COPD, history of schizophrenia; on clozapine, depression with anxiety; on lorazepam BID and q. HS haloperidol, neuropathy; on gabapentin TID, history of tremors; on benztropine BID, RLS; on pramipexole, BILL; on ferrous sulfate, history of vitamin D deficiency, history of mandibular surgery, history of cholecystectomy and GERD; on omeprazole who resides at a local psychiatric long term who presents to [facility] ER after staff noted patient complaining of shortness of breath and wheezing. Ms. Le is not a fully-reliable historian at this time so information was primarily gathered from chart, medical staff and computer. According to the records the patient's education analyst informed the ER physician that she first became ill around November 02, 2024 with a viral URI. She was subsequently taken to urgent care with patient suspected to have Pneumonia complicated by AE COPD with patient recommended to start antibiotic and steroid therapy but education analyst unable to administer medications without a formal MAR to sign off on - which would not be available until tomorrow morning so she was brought in to the ER for further evaluation and treatment. Her education analyst went on to report that she looked much more ill this evening with reports of nausea and vomiting 2 weeks ago. The patient also complains of fever, chills, nasal congestion, cough and her wheezing can be heard from across the room. In the ER she was noted to have chest x-ray evidence of Bibasilar Pneumonia; more confluent on the Left with Leukocytosis of 12.2 K present on admission complicated by clinical evidence of AE COPD with Acute Respiratory Insufficiency compounded by laboratory evidence of mild Hyponatremia of 130 mmol/L present on admission and she was then admitted to the general medical floor for ongoing care for a stay that is expected to extend beyond 2 midnights. [facility] Medical History Schizophrenia LIDA on CPAP Obesity Anxiety and depression Type 2 diabetes mellitus COPD (chronic obstructive pulmonary disease) Restless leg syndrome GERD (gastroesophageal reflux disease) HTN (hypertension) Hyperlipidemia Home Medications ???Medication ???Instructions ???Recorded ???Last Taken ???Type cholecalciferol (vitamin D3) 25 1,000 unit PO DAILY SUPPLEMENT 10/17/17 07/30/21 History mcg (1,000 unit) capsule (Vitamin D3) aspirin 325 mg tablet,delayed 325 mg PO DAILY@1600 heart health 07/22/18 07/30/21 History release omeprazole 20 mg capsule,delayed 20 mg PO DAILY indigestion 10/31/19 07/30/21 History release potassium chloride 20 mEq 20 meq PO DAILY supplement 11/16/19 07/30/21 History tablet,extended release(part/cryst) clozapine 100 mg tablet 100 mg PO 4X/DAY SCHIZOPHRENIA 07/30/21 07/30/21 History empagliflozin 10 mg tablet 10 mg PO DAILY diabetes 07/30/21 07/30/21 History (Jardiance) furosemide 20 mg tablet 20 mg PO DAILY FLUID 07/30/21 07/30/21 History insulin glargine 100 unit/mL (3 48 unit subcut DAILY@1600 DM 07/30/21 07/30/21 History mL) subcutaneous pen (Lantus Solostar U-100 Insulin) metoprolol succinate 25 mg 25 mg PO QHS HTN 07/30/21 07/29/21 History tablet,extended release 24 hr clonazepam 0.5 mg tablet 1 mg PO BID schizophrenia 06/05/22 Unknown History ferrous sulfate 325 mg (65 mg 325 mg PO .BID with meals anemia 06/05/22 Unknown History iron) tablet (Feosol) pramipexole 0.5 mg tablet 0.25 mg PO QHS restless legs 06/05/22 Unknown History atorvastatin 10 mg tablet 10 mg PO DAILY Cholesterol 08/14/23 Unknown History guaifenesin 1,200 mg tablet, 1,200 mg PO DAILY congestion 08/14/23 Unknown History extended release 12 hr (Mucus Relief ER) haloperidol 2 mg tablet 2 mg PO QHS anxiety 08/14/23 Unknown History metformin 500 mg tablet,extended 1,000 mg PO BID Diabetes 08/14/23 Unknown History release 24 hr benztropine 0.5 mg tablet 0.5 mg PO BID tremors 08/15/23 Unknown History doxycycline hyclate 100 mg tablet 100 mg PO BID 7 days #14 tabs 08/16/23 Unknown Rx (more content not included)... Normal [facility] INFLUENZA A&B MOLECULAR (POC )on 11-09-2024 Flu A (POCT) Negative Negative [facility] Flu B (POCT) Negative Negative [facility] Procedural Control Valid [facility] Location:[facility], [address], [place], [address] [facility] POINT OF CARE [facility] Influenza virus A and B and SARS-CoV-2 (COVID-19) and Respiratory syncytial virus RNAOrdered By: Francisco Thompson on 11-09-2024 SARS-CoV-2 (COVID-19) RNA LUIS M+probe Ql (Unsp spec) [facility] normalized rat io (INR) calculationOrdered By: Francisco Thompson on 11-09-2024 INR Coag (Bld) [Relative time] 1.1 {INR} [facility] Lactic Acidon 11-09-2024 Lactate [Moles/Vol] 1.3 mmol/L Normal 0.4-1.9 [facility] Comment on above: Order Comment: Y Performed By: #### L 100.0100 #### [facility] [address] [place], [address] Lactic acid measurementOrder ed By: Francisco Thompson on 11-09-2024 Lactate [Moles/Vol] 1.3 mmol/L 0.4-2.0 [facility] Liver Profileon 11-09-2024 Albumin [Mass/Vol] 3.5 g/dL Normal 3.2-5.0 [facility] Comment on above: Performed By: #### L 500.2500, L100.0100 #### [facility] [address] [place], [address] ALK P 188 U/L High 45-117 [facility] Comment on above: Performed By: #### L 500.2500, L100.0100 #### [facility] [address] [place], [address] ALT [Catalytic activity/Vol] 103 U/L High 13-56 [facility] Comment on above: Performed By: #### L 500.2500, L100.0100 #### [facility] [address] [place], [address] AST [Catalytic activity/Vol] 83 U/L High 15-37 [facility] Comment on above: Performed By: #### L 500.2500, L100.0100 #### [facility] [address] [place], [address] Bilirubin [Mass/Vol] 0.80 mg/dL Normal 0.20-1.00 [facility] Comment on above: Result Comment: For patients on eltrombopag therapy, use of Dimension Icard TBIL is not recommended. Performed By: #### L 500.2500, L100.0100 #### [facility] [address] [place], [address] Bilirubin.direct [Mass/Vol] 0.28 mg/dL Normal 0.00-0.30 [facility] Comment on above: Performed By: #### L 500.2500, L100.0100 #### [facility] [address] [place], [address] Globulin (S) [Mass/Vol] 4.4 g/dL High 2.2-4.2 [facility] Comment on above: Performed By: #### L 500.2500, L100.0100 #### [facility] [address] [place], [address] T PROT 7.9 g/dL Normal 6.4-8.2 [facility] Comment on above: Performed By: #### L 500.2500, L100.0100 #### [facility] [address] [place], [address] M100.678on 11-09-2024 M100.678 SARS-CoV-2 (COVID 19 ) Negative INFLUENZA A Negative INFLUENZA B Negative RSV PCR Negative Normal [facility] Comment on above: Performed By: #### L 100.0100 #### [facility] [address] [place], [address] Prothrombin Time w/INRon INR Coag (PPP) [Relative time] 1.1 {INR} Normal [facility] Comment on above: Performed By: #### L 100.0100 #### [facility] [address] [place], [address] PT Coag (PPP) [Time] 13.9 s Normal 11.7-14.9 [facility] Comment on above: Performed By: #### L 100.0100 #### [facility] [address] [place], [address] Prothrombin timeOrdered By: Francisco Thompson on 11-09-2024 PT Coag (PPP) [Time] 13.9 s 11.7-14.9 os [facility] XR CHEST 2V FRONTAL/LATon XR CHEST 2V FRONTAL/LAT Normal C [facility] XR Chest PA and Lateralon IMPRESSION: Patchy density in the lingula raises the possibility of pneumonia. 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 Transcribe Date/Time: Nov 09 2024 5:44P Dictated by : HESHAM CEDILLO MD This examination was interpreted and the report reviewed and electronically signed by: HESHAM CEDILLO MD on Nov 09 2024 5:46PM [facility] DIVISION OF RADIOLOGY * * *Final Report* * * DATE OF EXAM: Nov 09 2024 5:41PM WOX [id number] - XR CHEST 2V FRONTAL/LAT / PROCEDURE REASON: Acute cough * * * * Physician Interpretation * * * * EXAMINATION: CHEST RADIOGRAPH (2 VIEW FRONTAL & LATERAL) CLINICAL HISTORY: Acute cough MQ: XC2_6 EXAM DATE/TIME: 11/09/2024 5:41 PM COMPARISON: 07/19/2021 RESULT: Lines, tubes, and devices: None. Lungs and pleura: There is a patchy density noted in the lingula. Mild airway thickening is noted. No pleural effusions are identified. Cardiomediastinal silhouette: Normal cardiomediastinal silhouette. Bones and soft tissues: Degenerative changes are present within the thoracic spine. DIVISION OF RADIOLOGY Provider, [facility] - 11/09/2024 * * *Final Report* * * DATE OF EXAM: Nov 09 2024 5:41PM WOX [id number] - XR CHEST 2V FRONTAL/LAT / PROCEDURE REASON: Acute cough * * * * Physician Interpretation * * * * EXAMINATION: CHEST RADIOGRAPH (2 VIEW FRONTAL & LATERAL) CLINICAL HISTORY: Acute cough MQ: XC2_6 EXAM DATE/TIME: 11/09/2024 5:41 PM COMPARISON: 07/19/2021 RESULT: Lines, tubes, and devices: None. Lungs and pleura: There is a patchy density noted in the lingula. Mild airway thickening is noted. No pleural effusions are identified. Cardiomediastinal silhouette: Normal cardiomediastinal silhouette. Bones and soft tissues: Degenerative changes are present within the thoracic spine. IMPRESSION IMPRESSION: Patchy density in the lingula raises the possibility of pneumonia. 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 Transcribe Date/Time: Nov 09 2024 5:44P Dictated by : HESHAM CEDILLO MD This examination was interpreted and the report reviewed and electronically signed by: HESHAM CEDILLO MD on Nov 09 2024 5:46PM EST [facility] Radiology Study observation (narrative) Pola et[facility] XR Chest PA and LateralOrder ed By: [facility] Provider on 11-09-2024 [facility] CNPNon 11-05-2024 CNPN Normal [facility] Aldolase SerPl-cCncon 2024 Aldolase [Catalytic activity/Vol] 5.2 mU/mL Normal 1.5-8.1 [facility] Comment on above: Order Comment: Speci carlos Type: BLOOD SPECIMENOrdering Facility: [facility] Address: [address] [place] [address] Result Comment: This test was developed, and its performance characteristics determined by the [facility] Department of Pathology and Laboratory Medicine. It has not been cleared or approved by the FDA. The [facility] Department of Pathology and Laboratory Medicine is regulated under CLIA as qualified to perform high-complexity testing. This test is used for clinical purposes. It should not be regarded as investigational or for research. Performed By: #### 1 761-6 ####[facility] LABCLIA [id number] [place] [address] [place] CBC W Auto Differential pane l (Bld)on 11-02-2024 Basophils (Bld) [#/Vol] 0.06 10*3/uL Normal <0.11 [facility] Comment on above: Order Comment: Speci men Type: BLOOD SPECIMENOrdering Facility: [facility] Address: [address] [place] [address] Performed By: #### 5 7021-8 ####[facility] LABCLIA [id number] [place] [address] [place] Basophils/100 WBC (Bld) 0.5 % Normal C [facility] Comment on above: Order Comment: Speci men Type: BLOOD SPECIMENOrdering Facility: [facility] Address: [address] [place] [address] Performed By: #### 5 7021-8 ####[facility] LABCLIA [id number] [place] [address] [place] Differential cell count method Nom (Bld) Auto Normal [facility] Comment on above: Order Comment: Speci men Type: BLOOD SPECIMENOrdering Facility: [facility] Address: [address] [place] [address] Performed By: #### 5 7021-8 ####[facility] LABCLIA [id number] [place] [address] [place] Eosinophils (Bld) [#/Vol] 10*3/uL Normal <0.46 [facility] Comment on above: Order Comment: Speci men Type: BLOOD SPECIMENOrdering Facility: [facility] Address: [address] [place] [address] Performed By: #### 5 7021-8 ####[facility] LABCLIA [id number] [place] [address] [place] Eosinophils/100 WBC (Bld) 0.1 % Normal [facility] Comment on above: Order Comment: Speci men Type: BLOOD SPECIMENOrdering Facility: [facility] Address: [address] [place] [address] Performed By: #### 5 7021-8 ####[facility] LABCLIA [id number] [place] [address] [place] Erythrocyte distribution width (RBC) [Ratio] 14.3 % Normal 11.5-15.0 [facility] Comment on above: Order Comment: Speci men Type: BLOOD SPECIMENOrdering Facility: [facility] Address: [address] [place] [address] Performed By: #### 5 7021-8 ####[facility] LABCLIA [id number] [place] [address] [place] Hematocrit (Bld) [Volume fraction] 44.1 % Normal 36.0-46.0 [facility] Comment on above: Order Comment: Speci men Type: BLOOD SPECIMENOrdering Facility: [facility] Address: [address] [place] [address] Performed By: #### 5 7021-8 ####[facility] LABIA [id number] [place] [address] [place] Hemoglobin (Bld) [Mass/Vol] 13.8 g/dL Normal 11.5-15.5 [facility] Comment on above: Order Comment: Speci men Type: BLOOD SPECIMENOrdering Facility: [facility] Address: [address] [place] [address] Performed By: #### 5 7021-8 ####[facility] LABIA [id number] [place] [address] [place] Immature granulocytes (Bld) [#/Vol] 0.05 10*3/uL Normal <0.10 [facility] Comment on above: Order Comment: Speci men Type: BLOOD SPECIMENOrdering Facility: [facility] Address: [address] [place] [address] Performed By: #### 5 7021-8 ####[facility] LABIA [id number] [place] [address] [place] Immature granulocytes/100 WBC (Bld) 0.5 % Normal [facility] Comment on above: Order Comment: Speci men Type: BLOOD SPECIMENOrdering Facility: [facility] Address: [address] [place] [address] Performed By: #### 5 7021-8 ####[facility] LABIA [id number] [place] [address] [place] Lymphocytes (Bld) [#/Vol] 2.33 10*3/uL Normal 1.00-4.00 [facility] Comment on above: Order Comment: Speci men Type: BLOOD SPECIMENOrdering Facility: [facility] Address: [address] [place] [address] Performed By: #### 5 7021-8 ####[facility] LABIA [id number] [place] [address] [place] Lymphocytes/100 WBC (Bld) 21.0 % Normal [facility] Comment on above: Order Comment: Speci men Type: BLOOD SPECIMENOrdering Facility: [facility] Address: [address] [place] [address] Performed By: #### 5 7021-8 ####[facility] LABIA [id number] [place] [address] [place] MCH (RBC) [Entitic mass] 28.4 pg Normal 26.0-34.0 [facility] Comment on above: Order Comment: Speci men Type: BLOOD SPECIMENOrdering Facility: [facility] Address: [address] [place] [address] Performed By: #### 5 7021-8 ####[facility] LABIA [id number] [place] [address] [place] MCHC (RBC) [Mass/Vol] 31.3 g/dL Normal 30.5-36.0 [facility] Comment on above: Order Comment: Speci men Type: BLOOD SPECIMENOrdering Facility: [facility] Address: [address] [place] [address] Performed By: #### 5 7021-8 ####[facility] LABIA [id number] [place] [address] [place] MCV (RBC) [Entitic vol] 90.7 fL Normal 80.0-100.0 C [facility] Comment on above: Order Comment: Speci men Type: BLOOD SPECIMENOrdering Facility: [facility] Address: [address] [place] [address] Performed By: #### 5 7021-8 ####[facility] LABCLIA [id number] [place] [address] [place] Monocytes (Bld) [#/Vol] 0.76 10*3/uL Normal <0.87 [facility] Comment on above: Order Comment: Speci men Type: BLOOD SPECIMENOrdering Facility: [facility] Address: [address] [place] [address] Performed By: #### 5 7021-8 ####[facility] LABCLIA [id number] [place] [address] [place] Monocytes/100 WBC (Bld) 6.9 % Normal [facility] Comment on above: Order Comment: Speci men Type: BLOOD SPECIMENOrdering Facility: [facility] Address: [address] [place] [address] Performed By: #### 5 7021-8 ####[facility] LABCLIA [id number] [place] [address] [place] Neutrophils (Bld) [#/Vol] 7.86 10*3/uL High 1.45-7.50 [facility] Comment on above: Order Comment: Speci men Type: BLOOD SPECIMENOrdering Facility: [facility] Address: [address] [place] [address] Performed By: #### 5 7021-8 ####[facility] LABCLIA [id number] [place] [address] [place] Neutrophils/100 WBC (Bld) 71.0 % Normal [facility] Comment on above: Order Comment: Speci men Type: BLOOD SPECIMENOrdering Facility: [facility] Address: [address] [place] [address] Performed By: #### 5 7021-8 ####[facility] LABCLIA [id number] [place] [address] [place] Nucleated RBC (Bld) [#/Vol] 10*3/uL Normal <0.01 [facility] Comment on above: Order Comment: Speci men Type: BLOOD SPECIMENOrdering Facility: [facility] Address: [address] [place] [address] Performed By: #### 5 7021-8 ####[facility] LABCLIA [id number] [place] [address] [place] Nucleated RBC/100 WBC (Bld) [Ratio] 0.0 /100 WBC Normal [facility] Comment on above: Order Comment: Speci men Type: BLOOD SPECIMENOrdering Facility: [facility] Address: [address] [place] [address] Performed By: #### 5 7021-8 ####[facility] LABIA [id number] [place] [address] [place] Platelet mean volume (Bld) [Entitic vol] 12.2 fL Normal 9.0-12.7 [facility] Comment on above: Order Comment: Speci men Type: BLOOD SPECIMENOrdering Facility: [facility] Address: [address] [place] [address] Performed By: #### 5 7021-8 ####[facility] LABIA [id number] [place] [address] [place] Platelets (Bld) [#/Vol] 129 10*3/uL Low 150-400 [facility] Comment on above: Order Comment: Speci men Type: BLOOD SPECIMENOrdering Facility: [facility] Address: [address] [place] [address] Performed By: #### 5 7021-8 ####[facility] LABIA [id number] [place] [address] [place] RBC (Bld) [#/Vol] 4.86 10*6/uL Normal 3.90-5.20 [facility] Comment on above: Order Comment: Speci men Type: BLOOD SPECIMENOrdering Facility: [facility] Address: [address] [place] [address] Performed By: #### 5 7021-8 ####[facility] LABIA [id number] [place] [address] [place] WBC (Bld) [#/Vol] 11.07 10*3/uL High 3.70-11.00 [facility] Comment on above: Order Comment: Speci men Type: BLOOD SPECIMENOrdering Facility: [facility] Address: [address] [place] [address] Performed By: #### 5 7021-8 ####[facility] [id number] [place] [address] [place] CK SerPl-cCncon 11-02-2024 CK [Catalytic activity/Vol] 51 U/L Normal 42-196 [facility] Comment on above: Order Comment: Speci men Type: BLOOD SPECIMENOrdering Facility: [facility] Address: [address] [place] [address] Performed By: #### 2 157-6, 46353-3, LIPNF ####[facility] [id number] [place] [address] [place] CNOVon 11-02-2024 CNOV Normal [facility] Comprehensive metabolic 2000 panelon 11-02-2024 Albumin [Mass/Vol] 4.4 g/dL Normal 3.9-4.9 [facility] Comment on above: Order Comment: Speci men Type: BLOOD SPECIMENOrdering Facility: [facility] Address: [address] [place] [address] Performed By: #### 2 157-6, 74089-5, LIPNF ####[facility] LABIA [id number] [place] [address] [place] ALP [Catalytic activity/Vol] 133 U/L High 34-123 [facility] Comment on above: Order Comment: Speci men Type: BLOOD SPECIMENOrdering Facility: [facility] Address: [address] [place] [address] Performed By: #### 2 157-6, 33818-2, LIPNF ####[facility] LABCLIA [id number] [place] [address] [place] ALT [Catalytic activity/Vol] 43 U/L High 7-38 [facility] Comment on above: Order Comment: Speci men Type: BLOOD SPECIMENOrdering Facility: [facility] Address: [address] [place] [address] Performed By: #### 2 157-6, 51046-4, LIPNF ####[facility] LABCLIA [id number] [place] [address] [place] Anion gap [Moles/Vol] 13 mmol/L Normal 8-15 [facility] Comment on above: Order Comment: Speci men Type: BLOOD SPECIMENOrdering Facility: [facility] Address: [address] [place] [address] Performed By: #### 2 157-6, 91990-5, LIPNF ####[facility] LABCLIA [id number] [place] [address] [place] AST [Catalytic activity/Vol] 23 U/L Normal 13-35 [facility] Comment on above: Order Comment: Speci men Type: BLOOD SPECIMENOrdering Facility: [facility] Address: [address] [place] [address] Performed By: #### 2 157-6, 59074-8, LIPNF ####[facility] LABCLIA [id number] [place] [id number] [place] Bilirubin [Mass/Vol] 0.2 mg/dL Normal 0.2-1.3 [facility] Comment on above: Order Comment: Speci men Type: BLOOD SPECIMENOrdering Facility: [facility] Address: [address] [place] [address] Performed By: #### 2 157-6, 89729-3, LIPNF ####[facility] LABCLIA [id number] [place] [id number] [place] Calcium [Mass/Vol] 9.2 mg/dL Normal 8.5-10.2 [facility] Comment on above: Order Comment: Speci men Type: BLOOD SPECIMENOrdering Facility: [facility] Address: [address] [place] [address] Performed By: #### 2 157-6, 20157-2, LIPNF ####[facility] LABCLIA [id number] [place] [address] [place] Chloride [Moles/Vol] 93 mmol/L Low 98-107 [facility] Comment on above: Order Comment: Speci men Type: BLOOD SPECIMENOrdering Facility: [facility] Address: [address] [place] [address] Performed By: #### 2 157-6, 11292-6, LIPNF ####[facility] LABCLIA [id number] [place] [address] [place] CO2 [Moles/Vol] 25 mmol/L Normal 22-30 [facility] Comment on above: Order Comment: Speci men Type: BLOOD SPECIMENOrdering Facility: [facility] Address: [address] [place] [address] Performed By: #### 2 157-6, 83845-9, LIPNF ####[facility] LABCLIA [id number] [place] [id number] [place] Creatinine [Mass/Vol] 0.55 mg/dL Low 0.58-0.96 [facility] Comment on above: Order Comment: Speci men Type: BLOOD SPECIMENOrdering Facility: [facility] Address: [address] [place] [address] Performed By: #### 2 157-6, 19678-8, LIPNF ####[facility] LABCLIA [id number] [place] [address] [place] Creatinine and Glomerular filtration rate.predicted panel (S/P/Bld) 105 mL/min/1.73m??? Normal >=60 [facility] Comment on above: Order Comment: Rand gonzalez Type: BLOOD SPECIMENOrdering Facility: [facility] Address: [address] [place] [address] Result Comment: Gia mated Glomerular Filtration Rate (eGFR) is calculated using the 2020 CKD-EPI creatinine equation. This equation utilizes serum creatinine, sex, and age as parameters. The creatinine assay has traceable calibration to isotope dilution-mass spectrometry. Refer to KDIGO guidelines for clinical interpretation. In patients with unstable renal function, e.g. those with acute kidney injury, the eGFR may not accurately reflect actual GFR. Performed By: #### 2 157-6, 62449-2, LIPNF ####[facility] LABCLIA [id number] [place] [address] [place] Glucose [Mass/Vol] 138 mg/dL High 74-99 [facility] Comment on above: Order Comment: Rand gonzalez Type: BLOOD SPECIMENOrdering Facility: [facility] Address: [address] [place] [address] Result Comment: The [place] Diabetes Association (ADA) provides guidance for cutoff values for fasting glucose and random glucose. The ADA defines fasting as no caloric intake for at least 8 hours. Fasting plasma glucose results between 100 to 125 mg/dL indicate increased risk for diabetes (prediabetes).Fasting plasma glucose results greater than or equal to 126 mg/dL meet the criteria for diagnosis of diabetes. In the absence of unequivocal hyperglycemia, results should be confirmed by repeat testing. In a patient with classic symptoms of hyperglycemia or hyperglycemic crisis, random plasma glucose results greater than or equal to 200 mg/dL meet the criteria for diagnosis of diabetes.Reference: Standards of Medical Care in Diabetes 2016, [place] Diabetes Association. Diabetes Care. 2016.39(Suppl 1). Performed By: #### 2 157-6, 77092-8, LIPNF ####[facility] LABCLIA [id number] [place] [address] [place] Potassium [Moles/Vol] 4.3 mmol/L Normal 3.7-5.1 [facility] Comment on above: Order Comment: Speci men Type: BLOOD SPECIMENOrdering Facility: [facility] Address: [address] [place] [address] Performed By: #### 2 157-6, 92429-0, LIPNF ####[facility] LABCLIA [id number] [place] [address] [place] Protein [Mass/Vol] 7.4 g/dL Normal 6.3-8.0 [facility] Comment on above: Order Comment: Speci men Type: BLOOD SPECIMENOrdering Facility: [facility] Address: [address] [place] [address] Performed By: #### 2 157-6, 59311-4, LIPNF ####[facility] LABCLIA [id number] [place] [address] [place] Sodium [Moles/Vol] 131 mmol/L Low 136-144 [facility] Comment on above: Order Comment: Speci men Type: BLOOD SPECIMENOrdering Facility: [facility] Address: [address] [place] [address] Performed By: #### 2 157-6, , LIPNF ####[facility] LABCLIA [id number] [place] [address] [place] Urea nitrogen [Mass/Vol] 11 mg/dL Normal 7- [facility] Comment on above: Order Comment: Speci men Type: BLOOD SPECIMENOrdering Facility: [facility] Address: [address] [place] [address] Performed By: #### 2 157-6, 22906-9, LIPNF ####[facility] LABCLIA [id number] [place] [id number] [place] HbA1c (Bld)on 11-02-2024 Average glucose Estimated from glycated hemoglobin (Bld) [Mass/Vol] 146 mg/dL Normal [facility] Comment on above: Order Comment: Speci men Type: BLOOD SPECIMENOrdering Facility: [facility] Address: [address] [place] [address] Result Comment: eAG: (Estimated average glucose) is a calculated value from HgbA1c and is installation service representative of the average blood glucose level in the last 2-3 month period. Performed By: #### 5 5454-3 ####[facility] LABCLIA [id number] [place] [address] [place] HbA1c (Bld) [Mass fraction] 6.7 % High 4.3-5.6 [facility] Comment on above: Order Comment: Speci men Type: BLOOD SPECIMENOrdering Facility: [facility] Address: [address] [place] [address] Result Comment: [place] Diabetes Association guidelines indicate that patients with HgbA1c in the range 5.7-6.4% are at increased risk for development of diabetes, and intervention by lifestyle modification may be beneficial. HgbA1c greater or equal to 6.5% is considered diagnostic of diabetes. Performed By: #### 5 5454-3 ####[facility] LABCLIA [id number] [place] [address] [place] LIPID PANEL, NONFASTINGon Cholesterol [Mass/Vol] 204 mg/dL High <200 [facility] Comment on above: Order Comment: Speci men Type: BLOOD SPECIMENOrdering Facility: [facility] Address: [address] [place] [address] Result Comment: <200 mg/dL, Desirable 200-239 mg/dL, Borderline high>239 mg/dL, High Performed By: #### 2 157-6, 84402-0, LIPNF ####[facility] LABIA [id number] [place] [address] [place] HDL CHOLESTEROL, NF 39 mg/dL Low >39 [facility] Comment on above: Order Comment: Speci men Type: BLOOD SPECIMENOrdering Facility: [facility] Address: [address] [place] [address] Result Comment: 40-5 9 mg/dL, Acceptable>59 mg/dL, High: Negative risk factor for coronary heart disease<40 mg/dL, Low: Positive risk factor for coronary heart disease Performed By: #### 2 157-6, 14661-0, LIPNF ####[facility] LABCLIA [id number] [place] [address] [place] LDL CHOLESTEROL, NF 96 mg/dL Normal <100 [facility] Comment on above: Order Comment: Speci men Type: BLOOD SPECIMENOrdering Facility: [facility] Address: [address] [place] [address] Result Comment: <100 mg/dL, Optimal 100-129 mg/dL, Near optimal/above optimal 130-159 mg/dL, Borderline high 160-189 mg/dL, High>189 mg/dL, Very highSecondary prevention optimal LDL Cholesterol levels are recommended to be < 70 mg/dL Performed By: #### 2 157-6, 89803-0, LIPNF ####[facility] LABCLIA [id number] [place] [address] [place] LDL/HDL RATIO, NF 2.46 mg/dL Normal <2.54 [facility] Comment on above: Order Comment: Speci men Type: BLOOD SPECIMENOrdering Facility: [facility] Address: [address] [place] [address] Result Comment: Refe rensapphire:1. National Cholesterol Education Program ATP III Guideline At-A-Glance Quick Desk Reference: National Heart, Lung, and Blood [place]. National Institutes of Health. 2001: NIH Publication No. 01-3305.2. An International Atherosclerosis Society position paper: global recommendations for the management of dyslipidemia: executive summary, Atherosclerosis. 2014: 232(2):410-413. Performed By: #### 2 157-6, 48011-8, LIPNF ####[facility] LABCLIA [id number] [place] [address] [place] NON HDL CHOL, NF 165 mg/dL High <130 [facility] Comment on above: Order Comment: Speci men Type: BLOOD SPECIMENOrdering Facility: [facility] Address: [address] [place] [address] Result Comment: <130 mg/dL, Optimal 130-159 mg/dL, Near optimal/above optimal 160-189 mg/dL, Borderline high 190-219 mg/dL, High>219 mg/dL, Very highSecondary prevention optimal non HDL Cholesterol levels are recommended to be <100 mg/dL Performed By: #### 2 157-6, 39466-9, LIPNF ####[facility] LABCLIA [id number] [place] [address] [place] T CHOL/HDL RATIO NF 5.23 mg/dL High <5.10 [facility] Comment on above: Order Comment: Speci men Type: BLOOD SPECIMENOrdering Facility: [facility] Address: [address] [place] [address] Performed By: #### 2 157-6, 14772-5, LIPNF ####[facility] LABCLIA [id number] [place] [address] [place] TRIGLYCERIDES, NF 344 mg/dL High <150 [facility] Comment on above: Order Comment: Speci men Type: BLOOD SPECIMENOrdering Facility: [facility] Address: [address] [place] [address] Result Comment: <150 mg/dL, Normal 150-199 mg/dL, Borderline high 200-499 mg/dL, High>499 mg/dL, Very high Performed By: #### 2 157-6, 50904-6, LIPNF ####[facility] LABIA [id number] [place] [address] [place] VLDL CHOLESTEROL, NF 69 mg/dL High <30 [facility] Comment on above: Order Comment: Speci men Type: BLOOD SPECIMENOrdering Facility: [facility] Address: [address] [place] [address] Performed By: #### 2 157-6, 52724-3, LIPNF ####[facility] LABCLIA [id number] [place] [address] [place] XR LUMBAR 3V AP/LAT/L5-S1on 11-02-2024 XR LUMBAR 3V AP/LAT/L5-S1 Normal [facility] XR Lumbar spine 3 Viewson IMPRESSION: MILD DEGENERATIVE CHANGE 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 Transcribe Date/Time: Nov 02 2024 4:48P Dictated by : EUSEBIA MARIN MD This examination was interpreted and the report reviewed and electronically signed by: EUSEBIA MARIN MD on Nov 02 2024 4:52PM [facility] DIVISION OF RADIOLOGY * * *Final Report* * * DATE OF EXAM: Nov 02 2024 3:46PM WOX [id number] - XR LUMBAR 3V AP/LAT/L5-S1 / PROCEDURE REASON: Weakness of both lower extremities * * * * Physician Interpretation * * * * Examination: XR LUMBAR 3V AP/LAT/L5-S1 History: Weakness of both lower extremities Leg weakness Technique: XR LUMBAR 3V AP/LAT/L5-S1 Comparison: 04/28/2013 RESULT: 5 nonrib-bearing lumbar type vertebrae. Sacralization of L5. For numbering purposes, L4-5 is at the level of the iliac crest. Normal alignment. Normal lordosis. Mild spondylosis and osteophytosis throughout. Mild disc space narrowing at L4-5 and L5-S1. No fracture or focal bony abnormality DIVISION OF RADIOLOGY Provider, [facility] - 11/02/2024 * * *Final Report* * * DATE OF EXAM: Nov 02 2024 3:46PM WOX [id number] - XR LUMBAR 3V AP/LAT/L5-S1 / PROCEDURE REASON: Weakness of both lower extremities * * * * Physician Interpretation * * * * Examination: XR LUMBAR 3V AP/LAT/L5-S1 History: Weakness of both lower extremities Leg weakness Technique: XR LUMBAR 3V AP/LAT/L5-S1 Comparison: 04/28/2013 RESULT: 5 nonrib-bearing lumbar type vertebrae. Sacralization of L5. For numbering purposes, L4-5 is at the level of the iliac crest. Normal alignment. Normal lordosis. Mild spondylosis and osteophytosis throughout. Mild disc space narrowing at L4-5 and L5-S1. No fracture or focal bony abnormality IMPRESSION IMPRESSION: MILD DEGENERATIVE CHANGE Punchboard Filling Machine Operator: PSCB Transcribe Date/Time: Nov 02 2024 4:48P Dictated by : EUSEBIA MARIN MD This examination was interpreted and the report reviewed and electronically signed by: EUSEBIA MARIN MD on Nov 02 2024 4:52PM EST [facility] Radiology Study observation (narrative) [facility] XR Lumbar spine 3 ViewsOrder ed By: Ccf Provider on 11-02-2024 [facility] 12 Lead EKGon 10-14-2024 12 Lead EKG [facility] [address] [place] [address] 12 Lead EKG 10/14/24 1615 MR#: [id number] Acct: [id number] Name: BRENDA LE Rep #: [id number] : 1965 58 From: Yovany Dimas MD Attending Dr: Status: DEP ER Ordering Dr: Tae Holland DO Date: 10/14/24 Location: ED Sex: F C Admitted: Test Reason : CHEST PAIN Blood Pressure : */* mmHG Vent. Rate : 110 BPM Atrial Rate : 110 BPM P-R Int : 152 ms QRS Dur : 72 ms QT Int : 322 ms P-R-T Axes : 54 3 47 degrees QTcB Int : 435 ms Sinus tachycardia Low voltage QRS Septal infarct (cited on or before 05-Jun-2022) Abnormal ECG Confirmed by YOVANY DIMAS MD ([id number]), editor continuity and script ROSY CLINE ([id number]) on 10/15/2024 8:26:49 AM Referred By: Tae Holland Confirmed By: YOVANY DIMAS MD 10/15/24 0826 Date Yovany Dimas MD CC: ESEQUIEL Salmon; Dr. Tae Holland DO Signed Normal [facility] Absolute neutrophil countOrd ered By: Lorraine Springer on 10-14-2024 Neutrophils (Bld) [#/Vol] 5.8 10*3/uL 2.0-7.7 [facility] Albumin to globulin ratioOrd ered By: Tae Holland on 10-14-2024 Albumin/Globulin [Mass ratio] 0.9 {ratio} 0.9-2.4 [facility] Basophil percentageOrdered B y: Lorraine Springer on 10-14-2024 Basophils/100 WBC (Bld) 0.5 % 0-1 [facility] Bilirubin, totalOrdered By: Tae Holland on 10-14-2024 Bilirubin [Mass/Vol] 0.50 mg/dL 0.20-1.00 [facility] Comment on above: For patients on eltr ombopag therapy, use of Dimension Icard TBIL is not recommended. Blood urea nitrogen (BUN)/cr eatinine ratioOrdered By: Tae Holland on 10-14-2024 Urea nitrogen/Creatinine [Mass ratio] 31.2 mg/mg High 10-20 [facility] CBC W/Diff, Automatedon Absolute Lymph 1.45 X10 3/uL Normal 0.83-4.51 [facility] Comment on above: Performed By: #### L 100.0100 #### [facility] [address] [place], [address] Absolute Neut 5.8 X10 3/uL Normal 2.0-7.7 [facility] Comment on above: Performed By: #### L 100.0100 #### [facility] [address] [place], [address] Basophils/100 WBC (Bld) 0.5 % Normal 0-1 [facility] Comment on above: Performed By: #### L 100.0100 #### [facility] [address] [place], [address] Eosinophils/100 WBC (Bld) 0.4 % Normal 0-5 [facility] Comment on above: Performed By: #### L 100.0100 #### [facility] [address] [place], [address] Erythrocyte distribution width (RBC) [Ratio] 14.0 % Normal 11.6-14.6 [facility] Comment on above: Performed By: #### L 100.0100 #### [facility] [address] [place], [address] Hematocrit (Bld) [Volume fraction] 44.2 % Normal 37-47 [facility] Comment on above: Performed By: #### L 100.0100 #### [facility] [address] [place], [address] Hemoglobin (Bld) [Mass/Vol] 14.4 g/dL Normal 12.0-15.0 [facility] Comment on above: Performed By: #### L 100.0100 #### [facility] [address] [place], [address] IG% 0.600 Normal 0.0-0.9 [facility] Comment on above: Result Comment: IG% - Immature Granulocytes (promyelocytes, myelocytes and metamyelocytes) > 1% indicates that a LEFT SHIFT is Present. Performed By: #### L 100.0100 #### [facility] [address], [address] Lymphocytes/100 WBC (Bld) 17.9 % Low 19-41 [facility] Comment on above: Performed By: #### L 100.0100 #### [facility] [address] [place], [address] MCH (RBC) [Entitic mass] 29.3 pg Normal 27.0-32.0 [facility] Comment on above: Performed By: #### L 100.0100 #### [facility] [address] [place], [address] MCHC (RBC) [Mass/Vol] 32.6 g/dL Normal 32-36 [facility] Comment on above: Performed By: #### L 100.0100 #### [facility] [address] [place], [address] MCV (RBC) [Entitic vol] 90.0 fL Normal 81-99 [facility] Comment on above: Performed By: #### L 100.0100 #### [facility] [address] [place], [address] Monocytes/100 WBC (Bld) 9.5 % Normal 0-10 [facility] Comment on above: Performed By: #### L 100.0100 #### [facility] [address] [place], [address] Neutrophils/100 WBC (Bld) 71.1 % High 47-70 [facility] Comment on above: Performed By: #### L 100.0100 #### [facility] [address] [place], [address] Nucleated RBC (Bld) [#/Vol] 0 10*3/uL Normal 0-5 [facility] Comment on above: Performed By: #### L 100.0100 #### [facility] [address] [place], [address] Platelet mean volume (Bld) [Entitic vol] 11.1 fL Normal 6.2-12.0 [facility] Comment on above: Performed By: #### L 100.0100 #### [facility] [address] [place], [address] Platelets (Bld) [#/Vol] 196 10*3/uL Normal 150-450 [facility] Comment on above: Performed By: #### L 100.0100 #### [facility] [address] [place], [address] RBC (Bld) [#/Vol] 4.91 10*6/uL Normal 4.2-5.4 [facility] Comment on above: Performed By: #### L 100.0100 #### [facility] [address] [place], [address] RDW SD 45.5 fl High 35.1-43.9 [facility] Comment on above: Performed By: #### L 100.0100 #### [facility] [address] [place], [address] WBC (Bld) [#/Vol] 8.1 10*3/uL Normal 4.4-11.0 [facility] Comment on above: Performed By: #### L 100.0100 #### [facility] [address] [place], [address] CBC-Complete Blood Cnt No Di ffon 10-14-2024 Erythrocyte distribution width (RBC) [Ratio] 13.9 % Normal 11.6-14.6 [facility] Comment on above: Performed By: #### L 500.4050, L501.4020, L501.2450, L100.0500 #### [facility] [address] [place], [address] Hematocrit (Bld) [Volume fraction] 45.8 % Normal 37-47 [facility] Comment on above: Performed By: #### L 500.4050, L501.4020, L501.2450, L100.0500 #### [facility] [address] [place], [address] Hemoglobin (Bld) [Mass/Vol] 15.1 g/dL High 12.0-15.0 [facility] Comment on above: Performed By: #### L 500.4050, L501.4020, L501.2450, L100.0500 #### [facility] [address] [place], [address] MCH (RBC) [Entitic mass] 29.1 pg Normal 27.0-32.0 [facility] Comment on above: Performed By: #### L 500.4050, L501.4020, L501.2450, L100.0500 #### [facility] [address] [place], [address] MCHC (RBC) [Mass/Vol] 33.0 g/dL Normal 32-36 [facility] Comment on above: Performed By: #### L 500.4050, L501.4020, L501.2450, L100.0500 #### [facility] [address] [place], [address] MCV (RBC) [Entitic vol] 88.2 fL Normal 81-99 [facility] Comment on above: Performed By: #### L 500.4050, L501.4020, L501.2450, L100.0500 #### [facility] [address] [place], [address] Platelet mean volume (Bld) [Entitic vol] 9.6 fL Normal 6.2-12.0 [facility] Comment on above: Performed By: #### L 500.4050, L501.4020, L501.2450, L100.0500 #### [facility] [address] [place], [address] Platelets (Bld) [#/Vol] 217 10*3/uL Normal 150-450 [facility] Comment on above: Performed By: #### L 500.4050, L501.4020, L501.2450, L100.0500 #### [facility] [address] [place], [address] RBC (Bld) [#/Vol] 5.19 10*6/uL Normal 4.2-5.4 [facility] Comment on above: Performed By: #### L 500.4050, L501.4020, L501.2450, L100.0500 #### [facility] [address] [place], [address] RDW SD 44.6 fl High 35.1-43.9 [facility] Comment on above: Performed By: #### L 500.4050, L501.4020, L501.2450, L100.0500 #### [facility] [address] [place], [address] WBC (Bld) [#/Vol] 19.5 10*3/uL High 4.4-11.0 [facility] Comment on above: Performed By: #### L 500.4050, L501.4020, L501.2450, L100.0500 #### [facility] [address] [place], [address] Carbon dioxide measurementOr dered By: Tae Holland on 10-14-2024 CO2 [Moles/Vol] 23.0 mmol/L 21.0-32.0 [facility] Chest 1 View (Portable)on Chest 1 View (Portable) [facility] Imaging Services [address] [place] [address] Chest 1 View (Portable) MR#: [id number] Acct: [id number] Name: BRENDA LE Rep #: [id number] : 1965 F 58 From: Sid Ayala DO PCP: Shelia Salmon, MANAGER MAIL Status: REG ER Study: Chest 1 View (Portable) Date of Exam: 10/14/24 Exam# [id number] Ordering Dr: Tae Holland DO [id number] INDICATION: Cough EXAMINATION/TECHNIQUE: X-RAY - XR Chest 1 View COMPARISON: FINDINGS: LINES/DEVICES: None. LUNGS: No consolidation, edema or effusion. Left basilar atelectasis. No pneumothorax. MEDIASTINUM AND CARDIOVASCULAR STRUCTURES: Cardiac silhouette not enlarged. Central airways and mediastinal contour are unremarkable. BONES AND SOFT TISSUES: Unremarkable. RAD/Chest 1 View (Portable) IMPRESSION: Left basilar atelectasis. Electronically Signed: Sid Ayala DO at 16:48 EST , CC: ESEQUIEL Salmon; Dr. Tae Holland DO Punchboard Filling Machine Operator: Signed Normal [facility] Chloride measurementOrdered By: Tae Holland on 10-14-2024 Chloride [Moles/Vol] 96 mmol/L Low 98-107 [facility] Comprehensive Metabolic Prof ilon 10-14-2024 Albumin [Mass/Vol] 3.5 g/dL Normal 3.2-5.0 [facility] Comment on above: Order Comment: 'TROP ' Serial specimen #1, #2 or #3: 1 Performed By: #### L 500.4050, L501.4020, L501.2450, L100.0500 #### [facility] [address] [place], [address] Albumin/Globulin [Mass ratio] 0.9 {ratio} Normal 0.9-2.4 [facility] Comment on above: Order Comment: 'TROP ' Serial specimen #1, #2 or #3: 1 Performed By: #### L 500.4050, L501.4020, L501.2450, L100.0500 #### [facility] [address] [place], [address] ALK P 110 U/L Normal 45-117 [facility] Comment on above: Order Comment: 'TROP ' Serial specimen #1, #2 or #3: 1 Performed By: #### L 500.4050, L501.4020, L501.2450, L100.0500 #### [facility] [address] [place], [address] ALT [Catalytic activity/Vol] 49 U/L Normal 13-56 [facility] Comment on above: Order Comment: 'TROP ' Serial specimen #1, #2 or #3: 1 Performed By: #### L 500.4050, L501.4020, L501.2450, L100.0500 #### [facility] [address] [place], [address] AST [Catalytic activity/Vol] 29 U/L Normal 15-37 [facility] Comment on above: Order Comment: 'TROP ' Serial specimen #1, #2 or #3: 1 Performed By: #### L 500.4050, L501.4020, L501.2450, L100.0500 #### [facility] [address] [place], [address] Bilirubin [Mass/Vol] 0.50 mg/dL Normal 0.20-1.00 [facility] Comment on above: Order Comment: 'TROP ' Serial specimen #1, #2 or #3: 1 Result Comment: For patients on eltrombopag therapy, use of Dimension Icard TBIL is not recommended. Performed By: #### L 500.4050, L501.4020, L501.2450, L100.0500 #### [facility] [address] [place], [address] BUN/CRE 31.2 RATIO High 10-20 [facility] Comment on above: Order Comment: 'TROP ' Serial specimen #1, #2 or #3: 1 Performed By: #### L 500.4050, L501.4020, L501.2450, L100.0500 #### [facility] [address] [place], [address] CA,Total 8.9 mg/dL Normal 8.5-10.1 [facility] Comment on above: Order Comment: 'TROP ' Serial specimen #1, #2 or #3: 1 Performed By: #### L 500.4050, L501.4020, L501.2450, L100.0500 #### [facility] [address] [place], [address] Chloride [Moles/Vol] 96 mmol/L Low 98-107 [facility] Comment on above: Order Comment: 'TROP ' Serial specimen #1, #2 or #3: 1 Performed By: #### L 500.4050, L501.4020, L501.2450, L100.0500 #### [facility] [address] [place], [address] CO2 [Moles/Vol] 23.0 mmol/L Normal 21.0-32.0 [facility] Comment on above: Order Comment: 'TROP ' Serial specimen #1, #2 or #3: 1 Performed By: #### L 500.4050, L501.4020, L501.2450, L100.0500 #### [facility] [address] [place], [address] Creatinine [Mass/Vol] 0.58 mg/dL Normal 0.55-1.02 [facility] Comment on above: Order Comment: 'TROP ' Serial specimen #1, #2 or #3: 1 Result Comment: The validity of the calculated GFR GFRAA in patients over 70 years has not been determined. Clinical correlation is essential. Performed By: #### L 500.4050, L501.4020, L501.2450, L100.0500 #### [facility] [address] [place], [address] EST GFR - AA 137 mL/min Normal >60 [facility] Comment on above: Order Comment: 'TROP ' Serial specimen #1, #2 or #3: 1 Result Comment: Afri can Vietnamese GFR Calc Performed By: #### L 500.4050, L501.4020, L501.2450, L100.0500 #### [facility] [address] [place], [address] GAP 10 Normal 5-15 [facility] Comment on above: Order Comment: 'TROP ' Serial specimen #1, #2 or #3: 1 Performed By: #### L 500.4050, L501.4020, L501.2450, L100.0500 #### [facility] [address] [place], [address] GFR/1.73 sq M.predicted among non-blacks MDRD (S/P/Bld) [Vol rate/Area] 113 mL/min/{1.73_m2} Normal >60 [facility] Comment on above: Order Comment: 'TROP ' Serial specimen #1, #2 or #3: 1 Result Comment: Non- GFR Calc Performed By: #### L 500.4050, L501.4020, L501.2450, L100.0500 #### [facility] [address] [place], [address] Globulin (S) [Mass/Vol] 4.0 g/dL Normal 2.2-4.2 [facility] Comment on above: Order Comment: 'TROP ' Serial specimen #1, #2 or #3: 1 Performed By: #### L 500.4050, L501.4020, L501.2450, L100.0500 #### [facility] [address], [address] Glucose [Mass/Vol] 171 mg/dL High 74-106 [facility] Comment on above: Order Comment: 'TROP ' Serial specimen #1, #2 or #3: 1 Result Comment: Fast ing Glucose result greater than or equal to 126 mg/dL suggests DIABETES MELLITUS per A.D.A. criteria. Performed By: #### L 500.4050, L501.4020, L501.2450, L100.0500 #### [facility] [address] [place], [address] Potassium [Moles/Vol] 4.0 mmol/L Normal 3.5-5.1 [facility] Comment on above: Order Comment: 'TROP ' Serial specimen #1, #2 or #3: 1 Performed By: #### L 500.4050, L501.4020, L501.2450, L100.0500 #### [facility] [address] [place], [address] Sodium [Moles/Vol] 129 mmol/L Low 136-145 [facility] Comment on above: Order Comment: 'TROP ' Serial specimen #1, #2 or #3: 1 Performed By: #### L 500.4050, L501.4020, L501.2450, L100.0500 #### [facility] [address] [place], [address] T PROT 7.5 g/dL Normal 6.4-8.2 [facility] Comment on above: Order Comment: 'TROP ' Serial specimen #1, #2 or #3: 1 Performed By: #### L 500.4050, L501.4020, L501.2450, L100.0500 #### [facility] [address], [address] Urea nitrogen [Mass/Vol] 18 mg/dL Normal 7-18 [facility] Comment on above: Order Comment: 'TROP ' Serial specimen #1, #2 or #3: 1 Performed By: #### L 500.4050, L501.4020, L501.2450, L100.0500 #### [facility] [address] 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 Status:REG ER Location: ED HPI History of Present Illness Chief Complaint: Nausea/Vomiting/Diarrhea [facility] Medical History Anxiety and depression COPD (chronic obstructive pulmonary disease) GERD (gastroesophageal reflux disease) HTN (hypertension) Hyperlipidemia Obesity LIDA on CPAP Restless leg syndrome Schizophrenia Type 2 diabetes mellitus Home Medications ???Medication ???Instructions ???Recorded ???Last Taken ???Type cholecalciferol (vitamin D3) 25 1,000 unit PO DAILY SUPPLEMENT 10/17/17 07/30/21 History mcg (1,000 unit) capsule (Vitamin D3) aspirin 325 mg tablet,delayed 325 mg PO DAILY@1600 heart health 07/22/18 07/30/21 History release omeprazole 20 mg capsule,delayed 20 mg PO DAILY indigestion 10/31/19 07/30/21 History release potassium chloride 20 mEq 20 meq PO DAILY supplement 11/16/19 07/30/21 History tablet,extended release(part/cryst) clozapine 100 mg tablet 100 mg PO 4X/DAY SCHIZOPHRENIA 07/30/21 07/30/21 History empagliflozin 10 mg tablet 10 mg PO DAILY diabetes 07/30/21 07/30/21 History (Jardiance) furosemide 20 mg tablet 20 mg PO DAILY FLUID 07/30/21 07/30/21 History insulin glargine 100 unit/mL (3 48 unit subcut DAILY@1600 DM 07/30/21 07/30/21 History mL) subcutaneous pen (Lantus Solostar U-100 Insulin) metoprolol succinate 25 mg 25 mg PO QHS HTN 07/30/21 07/29/21 History tablet,extended release 24 hr clonazepam 0.5 mg tablet 1 mg PO BID schizophrenia 06/05/22 Unknown History ferrous sulfate 325 mg (65 mg 325 mg PO .BID with meals anemia 06/05/22 Unknown History iron) tablet (Feosol) pramipexole 0.5 mg tablet 0.25 mg PO QHS restless legs 06/05/22 Unknown History atorvastatin 10 mg tablet 10 mg PO DAILY Cholesterol 08/14/23 Unknown History guaifenesin 1,200 mg tablet, 1,200 mg PO DAILY congestion 08/14/23 Unknown History extended release 12 hr (Mucus Relief ER) haloperidol 2 mg tablet 2 mg PO QHS anxiety 08/14/23 Unknown History metformin 500 mg tablet,extended 1,000 mg PO BID Diabetes 08/14/23 Unknown History release 24 hr benztropine 0.5 mg tablet 0.5 mg PO BID tremors 08/15/23 Unknown History doxycycline hyclate 100 mg tablet 100 mg PO BID 7 days #14 tabs 08/16/23 Unknown Rx guaifenesin 1,200 mg tablet, 1,200 mg PO BID #20 tabs 08/16/23 Unknown Rx extended release 12 hr (Mucus Relief ER) prednisone 20 mg tablet 20 mg PO BID #14 tabs 08/16/23 Unknown Rx ondansetron 4 mg disintegrating 4 mg PO Q8H PRN PRN Nausea #14 tabs 12/13/23 Unknown Rx tablet peg 3350-electrolytes 236 240 ml PO Q10M PRN #4,000 mL 12/13/23 Unknown Rx gram-22.74 gram-6.74 gram-5.86 gram solution (Golytely) ondansetron 4 mg disintegrating 4 mg PO Q8H PRN PRN Nausea #10 tabs 10/14/24 Unknown Rx tablet Allergy/AdvReac Type Severity Reaction Status Date / Time No Known Allergies Allergy Verified 12/13/23 18:16 Family History Mother Heart disease Hypertension Father COPD (chronic obstructive pulmonary disease) Cancer Surgical History History of cholecystectomy History of mandibular surgery Social History housing: other details: care home. Smoking Status: Former smoker how long ago did patient quit smoking: Quit 10 years prior to 08/14/23 presentation, 2 ppd since teen until quit. alcohol intake: never substance use type: does not use EXAM Physical Exam Const Vital Signs: 10/14/24 15:03 10/14/24 17:44 Temperature 97.5 F L Temperature Source Temporal Pulse Rate 118 H 105 H Respiratory Rate 16 18 Blood Pressure 128/71 H 134/85 H Blood Pressure Mean 90 101 Pulse Ox 93 94 Oxygen Delivery Method Room Air Room Air MDM MDM MDM Narrative Medical decision making narrative: HISTORY OF PRESENT ILLNESS: 58-year-old female presents from long term with concern for nausea vomiting diarrhea. This is noted to begin at 10 AM. Noted sick contacts other members of the long term who have norovirus. The patient states she had copious nausea and vomiting at 10 AM. Also notes diarrhea. Notes some blood in her stool. Denies fever. Denies recent travel. No sick contacts at her long term. Denies chest pain. She does note chronic shortness of breath as well. She does note a cough as well. Denies urinary complaints. Last bowel movement was today. REVI (more content not included)... Normal [facility] Eosinophil percentageOrdered By: Lorraine Springer on 10-14-2024 Eosinophils/100 WBC (Bld) 0.4 % 0-5 [facility] Erythrocyte distribution wid th ratioOrdered By: Tae Holland on 10-14-2024 Erythrocyte distribution width (RBC) [Ratio] 13.9 % 11.6-14.6 [facility] Erythrocyte distribution wid th ratioOrdered By: Lorraine Springer on 10-14-2024 Erythrocyte distribution width (RBC) [Ratio] 14.0 % 11.6-14.6 [facility] Erythrocyte distribution wid th standard deviationOrdered By: Tae Holland on 10-14-2024 Erythrocyte distribution width (RBC) [Entitic vol] 44.6 fL High 35.1-43.9 [facility] Erythrocyte distribution wid th standard deviationOrdered By: Lorraine Springer on 10-14-2024 Erythrocyte distribution width (RBC) [Entitic vol] 45.5 fL High 35.1-43.9 [facility] Estimated glomerular filtrat ion rate (GFR) AmericanOrdered By: Tae Holland on 10-14-2024 Estimated GFR (MDRD) Amer 137 mL/min >60 [facility] Comment on above: GFR Calc Glomerular filtration rate ( GFR) estimationOrdered By: Tae Holland on 10-14-2024 Estimated GFR (MDRD) Non-Af Amer 113 mL/min >60 [facility] Comment on above: Non- GFR Calc Glucose measurementOrdered B y: Tae Holland on 10-14-2024 Glucose [Mass/Vol] 171 mg/dL High 74-106 [facility] Comment on above: Fasting Glucose resu lt greater than or equal to 126 mg/dL suggests DIABETES MELLITUS per A.D.A. criteria. Hematocrit Auto (Bld) [Volum e fraction]Ordered By: Tae Holland on 10-14-2024 Hematocrit (Bld) [Volume fraction] 45.8 % 37- [facility] Hematocrit Auto (Bld) [Volum e fraction]Ordered By: Lorraine Springer on 10-14-2024 Hematocrit (Bld) [Volume fraction] 44.2 % 37-47 [facility] Hemoglobin measurementOrdere d By: Tae Holland on 10-14-2024 Hemoglobin (Bld) [Mass/Vol] 15.1 g/dL High 12.0-15.0 [facility] Hemoglobin measurementOrdere d By: Lorraine Springer on 10-14-2024 Hemoglobin (Bld) [Mass/Vol] 14.4 g/dL 12.0-15.0 [facility] Immature granulocytes/100 WB C Auto (Bld)Ordered By: Lorraine Springer on 10-14-2024 Immature granulocytes/100 WBC (Bld) 0.600 % 0.0-0.9 [facility] Comment on above: IG% - Immature Granu locytes (promyelocytes, myelocytes and metamyelocytes) > 1% indicates that a LEFT SHIFT is Present. Influenza virus A and B and SARS-CoV-2 (COVID-19) and Respiratory syncytial virus RNAOrdered By: Tae Holladn on 10-14-2024 SARS-CoV-2 (COVID-19) RNA LUIS M+probe Ql (Unsp spec) [facility] L501.4020on 10-14-2024 TROPONIN-I HS < 3 Low 3.0-54.0 [facility] Comment on above: Order Comment: 'TROP ' Serial specimen #1, #2 or #3: 1 Result Comment: Ck wang Note: New Test Units and Gender Specific Reference Ranges. For more information see Policy Stat Procedure Icard High Sensitivity Troponin (TNIH) and attachments. Performed By: #### L 100.0100 #### [facility] [address] [place], [address] Laboratory - Chemistry and C hemistry - challengeOrdered By: Tae Holland on 10-14-2024 AST [Catalytic activity/Vol] 29 U/L 15-37 [facility] Lipaseon 10-14-2024 Lipase [Catalytic activity/Vol] 176 U/L High 13-75 [facility] Comment on above: Order Comment: 'TROP ' Serial specimen #1, #2 or #3: 1 Result Comment: Ck wang note: LIPASE revised reference range effective 23. New Lipase methodology. Expected to produce lower values than the previous assay method. NEW Reference Range: 13 - 75 U/L Performed By: #### L 500.4050, L501.4020, L501.2450, L100.0500 #### [facility] [address] [place], [place], [id number] Lipase measurementOrdered By : Tae Holland on 10-14-2024 Lipase [Catalytic activity/Vol] 176 U/L High 13-75 [facility] Comment on above: Please note:LIPASE r evised reference range effective 23. New Lipase methodology. Expected to produce lower values than the previous assay method. NEW Reference Range: 13 - 75 U/L Lymphocytes Auto (Unsp spec) [#/Vol]Ordered By: Lorraine Springer on 10-14-2024 Lymphocytes (Bld) [#/Vol] 1.45 10*3/uL 0.83-4.51 [facility] Lymphocytes/100 WBC Auto (Un sp spec)Ordered By: Lorraine Springer on 10-14-2024 Lymphocytes/100 WBC (Bld) 17.9 % Low 19-41 [facility] M100.678on 10-14-2024 M100.678 Pending SARS-CoV-2 (COVID 19) Negative INFLUENZA A Negative INFLUENZA B Negative RSV PCR Negative Normal [facility] Comment on above: Performed By: #### L 500.4050, L501.4020, L501.2450, L100.0500 #### [facility] [address] [place], [address] MCV (mean corpuscular volume ) determinationOrdered By: Tae Holland on 10-14-2024 MCV (RBC) [Entitic vol] 88.2 fL 81-99 [facility] MCV (mean corpuscular volume ) determinationOrdered By: Lorraine Springer on 10-14-2024 MCV (RBC) [Entitic vol] 90.0 fL 81-99 [facility] Mean corpuscular hemoglobin (MCH) determinationOrdered By: Tae Holland on 10-14-2024 MCH (RBC) [Entitic mass] 29.1 pg 27.0-32.0 [facility] Mean corpuscular hemoglobin (MCH) determinationOrdered By: Lorraine Springer on 10-14-2024 MCH (RBC) [Entitic mass] 29.3 pg 27.0-32.0 [facility] Mean corpuscular hemoglobin concentration (MCHC) determinationOrdered By: Tae Holland on 10-14-2024 MCHC (RBC) [Mass/Vol] 33.0 g/dL 32-36 [facility] Mean corpuscular hemoglobin concentration (MCHC) determinationOrdered By: Lorraine Springer on 10-14-2024 MCHC (RBC) [Mass/Vol] 32.6 g/dL 32-36 [facility] Mean platelet volume determi nationOrdered By: Tae Holland on 10-14-2024 Platelet mean volume (Bld) [Entitic vol] 9.6 fL 6.2-12.0 [facility] Mean platelet volume determi nationOrdered By: Lorraine Springer on 10-14-2024 Platelet mean volume (Bld) [Entitic vol] 11.1 fL 6.2-12.0 [facility] Monocyte percentageOrdered B y: Lorraine Springer on 10-14-2024 Monocytes/100 WBC (Bld) 9.5 % 0-10 [facility] Neutrophil percentageOrdered By: Lorraine Springer on 10-14-2024 Neutrophils/100 WBC (Bld) 71.1 % High 47-70 [facility] Nucleated red blood cell per centageOrdered By: Lorraine Springer on 10-14-2024 Nucleated RBC/100 WBC (Bld) [Ratio] 0 % 0-5 [facility] Platelet countOrdered By: Vivi Holland on 10-14-2024 Platelets (Bld) [#/Vol] 217 10*3/uL 150-450 [facility] Platelet countOrdered By: Anastacia Springer on 10-14-2024 Platelets (Bld) [#/Vol] 196 10*3/uL 150-450 [facility] Potassium measurementOrdered By: Tae Holland on 10-14-2024 Potassium [Moles/Vol] 4.0 mmol/L 3.5-5.1 [facility] RBC Auto (Bld) [#/Vol]Ordere d By: Tae Holland on 10-14-2024 RBC (Bld) [#/Vol] 5.19 10*6/uL 4.2-5.4 [facility] RBC Auto (Bld) [#/Vol]Ordere d By: Lorraine Springer on 10-14-2024 RBC (Bld) [#/Vol] 4.91 10*6/uL 4.2-5.4 [facility] Serum anion gap measurementO rdered By: Tae Holland on 10-14-2024 Anion gap [Moles/Vol] 10 mmol/L 5-15 [facility] Serum globulin measurementOr dered By: Tae Holland on 10-14-2024 Globulin (S) [Mass/Vol] 4.0 g/dL 2.2-4.2 [facility] Serum or plasma alanine angulo otransferase (ALT) measurementOrdered By: Tae Holland on 10-14-2024 ALT [Catalytic activity/Vol] 49 U/L 13-56 [facility] Serum or plasma albumin lawrence urement (mass/volume)Ordered By: Tae Holland on 10-14-2024 Albumin [Mass/Vol] 3.5 g/dL 3.2-5.0 [facility] Serum or plasma alkaline jakob sphatase measurementOrdered By: Tae Holland on 10-14-2024 ALP [Catalytic activity/Vol] 110 U/L 45-117 [facility] Serum or plasma calcium lawrence urement (mass/volume)Ordered By: Tae Holland on 10-14-2024 Calcium [Mass/Vol] 8.9 mg/dL 8.5-10.1 [facility] Serum or plasma creatinine m easurement (mass/volume)Ordered By: Tae Holland on 10-14-2024 Creatinine [Mass/Vol] 0.58 mg/dL 0.55-1.02 [facility] Comment on above: The validity of the calculated GFR & GFRAA in patients over 70 years has not been determined. Clinical correlation is essential. Serum or plasma urea nitroge n measurement (mass/volume)Ordered By: Tae Holland on 10-14-2024 Urea nitrogen [Mass/Vol] 18 mg/dL 7-18 [facility] Sodium levelOrdered By: Sandra Holland on 10-14-2024 Sodium [Moles/Vol] 129 mmol/L Low 136-145 [facility] Total proteinOrdered By: Gabe Holland on 10-14-2024 Protein [Mass/Vol] 7.5 g/dL 6.4-8.2 [facility] Troponin IOrdered By: Tae Holland on 10-14-2024 Troponin I High Sensitivity < 3 pg/mL Low 3.0-54.0 [facility] Comment on above: Please Note: New Janeth t Units and Gender Specific Reference Ranges. For more information see Policy Stat Procedure Icard High Sensitivity Troponin (TNIH) and attachments. White blood cell (WBC) count Ordered By: Tae Holland on 10-14-2024 WBC (Bld) [#/Vol] 19.5 10*3/uL High 4.4-11.0 [facility] White blood cell (WBC) count Ordered By: Lorraine Springer on 10-14-2024 WBC (Bld) [#/Vol] 8.1 10*3/uL 4.4-11.0 [facility] CNOVon 09-28-2024 CNOV Normal [facility] CNOVon 09-20-2024 CNOV Normal [facility] ECG COMPLETEon 09-20-2024 ECG COMPLETE Normal [facility] Absolute neutrophil countOrd ered By: Lorraine Springer on 09-16-2024 Neutrophils (Bld) [#/Vol] 4.6 10*3/uL 2.0-7.7 [facility] Basophil percentageOrdered B y: Lorraine Springer on 09-16-2024 Basophils/100 WBC (Bld) 0.5 % 0-1 [facility] CBC W/Diff, Automatedon 12-0 SMEAR COMMENT SCANNED Normal [facility] Comment on above: Performed By: #### L 500.4050, L501.4020, L501.2450, L100.0500 #### [facility] [address] [place], [address] Eosinophil percentageOrdered By: Lorraine Springer on 09-16-2024 Eosinophils/100 WBC (Bld) 0.4 % 0-5 [facility] Erythrocyte distribution wid th ratioOrdered By: [facility] on 09-16-2024 Erythrocyte distribution width (RBC) [Ratio] 14.0 % 11.6-14.6 [facility] Erythrocyte distribution wid th standard deviationOrdered By: Lorraine Springer on 09-16-2024 Erythrocyte distribution width (RBC) [Entitic vol] 44.5 fL High 35.1-43.9 [facility] Hematocrit Auto (Bld) [Volum e fraction]Ordered By: Lorraine Springer on 09-16-2024 Hematocrit (Bld) [Volume fraction] 41.7 % 37-47 [facility] Hemoglobin measurementOrdere d By: Lorraine Sprigner on 09-16-2024 Hemoglobin (Bld) [Mass/Vol] 13.7 g/dL 12.0-15.0 [facility] Immature granulocytes/100 WB C Auto (Bld)Ordered By: Lorraine Springer on 09-16-2024 Immature granulocytes/100 WBC (Bld) 0.400 % 0.0-0.9 [facility] Comment on above: IG% - Immature Granu locytes (promyelocytes, myelocytes and metamyelocytes) > 1% indicates that a LEFT SHIFT is Present. Lymphocytes Auto (Unsp spec) [#/Vol]Ordered By: Lorraine Springer on 09-16-2024 Lymphocytes (Bld) [#/Vol] 2.60 10*3/uL 0.83-4.51 [facility] Lymphocytes/100 WBC Auto (Un sp spec)Ordered By: Lorraine Springer on 09-16-2024 Lymphocytes/100 WBC (Bld) 33.5 % 19-41 [facility] MCV (mean corpuscular volume ) determinationOrdered By: Lorraine Springer on 09-16-2024 MCV (RBC) [Entitic vol] 88.2 fL 81-99 [facility] Manual differential comment Diego (Bld) [Interp]Ordered By: Lorraine Springer on 09-16-2024 Differential Comment SCANNED [facility] Mean corpuscular hemoglobin (MCH) determinationOrdered By: Lorraine Springer on 09-16-2024 MCH (RBC) [Entitic mass] 29.0 pg 27.0-32.0 [facility] Mean corpuscular hemoglobin concentration (MCHC) determinationOrdered By: Lorraine Springer on 09-16-2024 MCHC (RBC) [Mass/Vol] 32.9 g/dL 32-36 [facility] Mean platelet volume determi nationOrdered By: Lorraine Springer on 09-16-2024 Platelet mean volume (Bld) [Entitic vol] 11.3 fL 6.2-12.0 [facility] Monocyte percentageOrdered B y: Lorraine Springer on 09-16-2024 Monocytes/100 WBC (Bld) 5.7 % 0-10 [facility] Neutrophil percentageOrdered By: Lorraine Springer on 09-16-2024 Neutrophils/100 WBC (Bld) 59.5 % 47-70 [facility] Nucleated red blood cell per centageOrdered By: Lorraine Springer on 09-16-2024 Nucleated RBC/100 WBC (Bld) [Ratio] 0 % 0-5 [facility] Platelet countOrdered By: Anastacia Springer on 09-16-2024 Platelets (Bld) [#/Vol] 198 10*3/uL 150-450 [facility] RBC Auto (Bld) [#/Vol]Ordere d By: Lorraine Springer on 09-16-2024 RBC (Bld) [#/Vol] 4.73 10*6/uL 4.2-5.4 [facility] White blood cell (WBC) count Ordered By: Lorraine Springer on 09-16-2024 WBC (Bld) [#/Vol] 7.8 10*3/uL 4.4-11.0 [facility] CNOVon 09-08-2024 CNOV Normal [facility] Absolute neutrophil countOrd ered By: Lorraine Springer on 08-25-2024 Neutrophils (Bld) [#/Vol] 6.9 10*3/uL 2.0-7.7 [facility] Basophil percentageOrdered B y: Lorraine Springer on 08-25-2024 Basophils/100 WBC (Bld) 0.5 % 0-1 [facility] CBC W/Diff, Automatedon 08-13 Absolute Lymph 2.76 X10 3/uL Normal 0.83-4.51 [facility] Comment on above: Performed By: #### L 500.2500, L100.0100 #### [facility] [address] [place], [address] Absolute Neut 6.9 X10 3/uL Normal 2.0-7.7 [facility] Comment on above: Performed By: #### L 500.2500, L100.0100 #### [facility] [address] [place], [address] Basophils/100 WBC (Bld) 0.5 % Normal 0-1 [facility] Comment on above: Performed By: #### L 500.2500, L100.0100 #### [facility] [address] [place], [address] Eosinophils/100 WBC (Bld) 0.3 % Normal 0-5 [facility] Comment on above: Performed By: #### L 500.2500, L100.0100 #### [facility] [address] [place], [address] Erythrocyte distribution width (RBC) [Ratio] 13.7 % Normal 11.6-14.6 [facility] Comment on above: Performed By: #### L 500.2500, L100.0100 #### [facility] [address] [place], [address] Hematocrit (Bld) [Volume fraction] 44.1 % Normal 37-47 [facility] Comment on above: Performed By: #### L 500.2500, L100.0100 #### [facility] [address], [address] Hemoglobin (Bld) [Mass/Vol] 14.4 g/dL Normal 12.0-15.0 [facility] Comment on above: Performed By: #### L 500.2500, L100.0100 #### [facility] [address] [place], [address] IG% 0.900 Normal 0.0-0.9 [facility] Comment on above: Result Comment: IG% - Immature Granulocytes (promyelocytes, myelocytes and metamyelocytes) > 1% indicates that a LEFT SHIFT is Present. Performed By: #### L 500.2500, L100.0100 #### [facility] [address] [place], [address] Lymphocytes/100 WBC (Bld) 26.1 % Normal 19-41 [facility] Comment on above: Performed By: #### L 500.2500, L100.0100 #### [facility] [address], [address] MCH (RBC) [Entitic mass] 28.9 pg Normal 27.0-32.0 [facility] Comment on above: Performed By: #### L 500.2500, L100.0100 #### [facility] [address] [place], [address] MCHC (RBC) [Mass/Vol] 32.7 g/dL Normal 32-36 [facility] Comment on above: Performed By: #### L 500.2500, L100.0100 #### [facility] [address] [place], [address] MCV (RBC) [Entitic vol] 88.4 fL Normal 81-99 [facility] Comment on above: Performed By: #### L 500.2500, L100.0100 #### [facility] [address] [place], [address] Monocytes/100 WBC (Bld) 7.1 % Normal 0-10 [facility] Comment on above: Performed By: #### L 500.2500, L100.0100 #### [facility] [address] [place], [address] Neutrophils/100 WBC (Bld) 65.1 % Normal 47-70 [facility] Comment on above: Performed By: #### L 500.2500, L100.0100 #### [facility] [address] [place], [address] Nucleated RBC (Bld) [#/Vol] 0 10*3/uL Normal 0-5 [facility] Comment on above: Performed By: #### L 500.2500, L100.0100 #### [facility] [address] [place], [address] Platelet mean volume (Bld) [Entitic vol] 11.1 fL Normal 6.2-12.0 [facility] Comment on above: Performed By: #### L 500.2500, L100.0100 #### [facility] [address] [place], [address] Platelets (Bld) [#/Vol] 252 10*3/uL Normal 150-450 [facility] Comment on above: Performed By: #### L 500.2500, L100.0100 #### [facility] [address] [place], [address] RBC (Bld) [#/Vol] 4.99 10*6/uL Normal 4.2-5.4 [facility] Comment on above: Performed By: #### L 500.2500, L100.0100 #### [facility] [address] [place], [address] RDW SD 44.1 fl High 35.1-43.9 [facility] Comment on above: Performed By: #### L 500.2500, L100.0100 #### [facility] [address] [place], [address] WBC (Bld) [#/Vol] 10.6 10*3/uL Normal 4.4-11.0 [facility] Comment on above: Performed By: #### L 500.2500, L100.0100 #### [facility] [address] [place], [address] Eosinophil percentageOrdered By: Lorraine Springer on 08-25-2024 Eosinophils/100 WBC (Bld) 0.3 % 0-5 [facility] Erythrocyte distribution wid th ratioOrdered By: Lorraine Springer on 08-25-2024 Erythrocyte distribution width (RBC) [Ratio] 13.7 % 11.6-14.6 [facility] Erythrocyte distribution wid th standard deviationOrdered By: Lorraine Springer on 08-25-2024 Erythrocyte distribution width (RBC) [Entitic vol] 44.1 fL High 35.1-43.9 [facility] Hematocrit Auto (Bld) [Volum e fraction]Ordered By: Lorraine Springer on 08-25-2024 Hematocrit (Bld) [Volume fraction] 44.1 % 37-47 [facility] Hemoglobin measurementOrdere d By: Lorraine Springer on 08-25-2024 Hemoglobin (Bld) [Mass/Vol] 14.4 g/dL 12.0-15.0 [facility] Immature granulocytes/100 WB C Auto (Bld)Ordered By: Lorraine Springer on 08-25-2024 Immature granulocytes/100 WBC (Bld) 0.900 % 0.0-0.9 [facility] Comment on above: IG% - Immature Granu locytes (promyelocytes, myelocytes and metamyelocytes) > 1% indicates that a LEFT SHIFT is Present. Lymphocytes Auto (Unsp spec) [#/Vol]Ordered By: Lorraine Springer on 08-25-2024 Lymphocytes (Bld) [#/Vol] 2.76 10*3/uL 0.83-4.51 [facility] Lymphocytes/100 WBC Auto (Un sp spec)Ordered By: Lorraine Springer on 08-25-2024 Lymphocytes/100 WBC (Bld) 26.1 % 19-41 [facility] MCV (mean corpuscular volume ) determinationOrdered By: Lorraine Springer on 08-25-2024 MCV (RBC) [Entitic vol] 88.4 fL 81-99 [facility] Mean corpuscular hemoglobin (MCH) determinationOrdered By: Lorraine Springer on 08-25-2024 MCH (RBC) [Entitic mass] 28.9 pg 27.0-32.0 [facility] Mean corpuscular hemoglobin concentration (MCHC) determinationOrdered By: Lorraine Springer on 08-25-2024 MCHC (RBC) [Mass/Vol] 32.7 g/dL 32-36 [facility] Mean platelet volume determi nationOrdered By: Lorraine Springer on 08-25-2024 Platelet mean volume (Bld) [Entitic vol] 11.1 fL 6.2-12.0 [facility] Monocyte percentageOrdered B y: Lorraine Springer on 08-25-2024 Monocytes/100 WBC (Bld) 7.1 % 0-10 [facility] Neutrophil percentageOrdered By: Lorraine Springer on 08-25-2024 Neutrophils/100 WBC (Bld) 65.1 % 47-70 [facility] Nucleated red blood cell per centageOrdered By: Lorraine Springer on 08-25-2024 Nucleated RBC/100 WBC (Bld) [Ratio] 0 % 0-5 [facility] Platelet countOrdered By: Anastacia Springer on 08-25-2024 Platelets (Bld) [#/Vol] 252 10*3/uL 150-450 [facility] RBC Auto (Bld) [#/Vol]Ordere d By: Lorraine Springer on 08-25-2024 RBC (Bld) [#/Vol] 4.99 10*6/uL 4.2-5.4 [facility] White blood cell (WBC) count Ordered By: Lorraine Springer on 08-25-2024 WBC (Bld) [#/Vol] 10.6 10*3/uL 4.4-11.0 [facility] CNOVon 08-24-2024 CNOV Normal [facility] CNPNon 08-18-2024 CNPN Normal [facility] CNPNon 08-16-2024 CNPN Normal [facility] CNPNon 07-31-2024 CNPN Normal [facility] CNOVon 07-23-2024 CNOV Normal [facility] CBC W/Diff, Automatedon 07-13 PATH REV Reviewed Normal [facility] Comment on above: Result Comment: Jerry Patel M.D. 07/22/24 AMENDED REPORT 07/22/24 [id number] PATH REV previously reported as: Kortney de adna Performed By: #### L 500.2500, L100.0100 #### [facility] [address] [place], [place], [address] (608) CNPNon 07-22-2024 CNPN Normal [facility] CNPNon 07-14-2024 CNPN Normal [facility] CNOVon 07-06-2024 CNOV Normal [facility] CBC W/Diff, Automatedon 06-13 Absolute Lymph 2.07 X10 3/uL Normal 0.83-4.51 [facility] Comment on above: Performed By: #### L 100.0100 #### [facility] [address] [place], [address] Absolute Neut 5.6 X10 3/uL Normal 2.0-7.7 [facility] Comment on above: Performed By: #### L 100.0100 #### [facility] [address] [place], [address] Basophils/100 WBC (Bld) 0.5 % Normal 0-1 [facility] Comment on above: Performed By: #### L 100.0100 #### [facility] [address] [place], [address] Eosinophils/100 WBC (Bld) 0.2 % Normal 0-5 [facility] Comment on above: Performed By: #### L 100.0100 #### [facility] [address] [place], [address] Erythrocyte distribution width (RBC) [Ratio] 13.6 % Normal 11.6-14.6 [facility] Comment on above: Performed By: #### L 100.0100 #### [facility] [address] [place], [address] Hematocrit (Bld) [Volume fraction] 41.3 % Normal 37-47 [facility] Comment on above: Performed By: #### L 100.0100 #### [facility] [address] [place], [address] Hemoglobin (Bld) [Mass/Vol] 13.3 g/dL Normal 12.0-15.0 [facility] Comment on above: Performed By: #### L 100.0100 #### [facility] [address] [place], [address] IG% 0.700 Normal 0.0-0.9 [facility] Comment on above: Result Comment: IG% - Immature Granulocytes (promyelocytes, myelocytes and metamyelocytes) > 1% indicates that a LEFT SHIFT is Present. Performed By: #### L 100.0100 #### [facility] [address] [place], [address] Lymphocytes/100 WBC (Bld) 24.6 % Normal 19-41 [facility] Comment on above: Performed By: #### L 100.0100 #### [facility] [address] [place], [address] MCH (RBC) [Entitic mass] 28.4 pg Normal 27.0-32.0 [facility] Comment on above: Performed By: #### L 100.0100 #### [facility] [address] [place], [address] MCHC (RBC) [Mass/Vol] 32.2 g/dL Normal 32-36 [facility] Comment on above: Performed By: #### L 100.0100 #### [facility] [address] [place], [address] MCV (RBC) [Entitic vol] 88.1 fL Normal 81-99 [facility] Comment on above: Performed By: #### L 100.0100 #### [facility] [address] [place], [address] Monocytes/100 WBC (Bld) 7.1 % Normal 0-10 [facility] Comment on above: Performed By: #### L 100.0100 #### [facility] [address] [place], [address] Neutrophils/100 WBC (Bld) 66.9 % Normal 47-70 [facility] Comment on above: Performed By: #### L 100.0100 #### [facility] [address] [place], [address] Nucleated RBC (Bld) [#/Vol] 0 10*3/uL Normal 0-5 [facility] Comment on above: Performed By: #### L 100.0100 #### [facility] [address] [place], [address] Platelet mean volume (Bld) [Entitic vol] 9.8 fL Normal 6.2-12.0 [facility] Comment on above: Performed By: #### L 100.0100 #### [facility] [address] [place], [address] Platelets (Bld) [#/Vol] 218 10*3/uL Normal 150-450 [facility] Comment on above: Performed By: #### L 100.0100 #### [facility] [address] [place], [address] RBC (Bld) [#/Vol] 4.69 10*6/uL Normal 4.2-5.4 [facility] Comment on above: Performed By: #### L 100.0100 #### [facility] [address] [place], [address] RDW SD 43.7 fl Normal 35.1-43.9 [facility] Comment on above: Performed By: #### L 100.0100 #### [facility] [address] [place], [address] WBC (Bld) [#/Vol] 8.4 10*3/uL Normal 4.4-11.0 [facility] Comment on above: Performed By: #### L 100.0100 #### [facility] [address] [place], [address] CNPTOUTREACHon --2023 CNPTOUTREACH Normal [facility] CBC W/Diff, Automatedon 08-2 -2023 Absolute Lymph 2.19 X10 3/uL Normal 0.83-4.51 [facility] Comment on above: Performed By: #### L 100.0100 #### [facility] [address] [place], [address] Absolute Neut 7.8 X10 3/uL High 2.0-7.7 [facility] Comment on above: Performed By: #### L 100.0100 #### [facility] [address] [place], [address] Basophils/100 WBC (Bld) 0.5 % Normal 0-1 [facility] Comment on above: Performed By: #### L 100.0100 #### [facility] [address] [place], [address] Eosinophils/100 WBC (Bld) 0.3 % Normal 0-5 [facility] Comment on above: Performed By: #### L 100.0100 #### [facility] [address] [place], [address] Erythrocyte distribution width (RBC) [Ratio] 13.4 % Normal 11.6-14.6 [facility] Comment on above: Performed By: #### L 100.0100 #### [facility] [address] [place], [address] Hematocrit (Bld) [Volume fraction] 40.4 % Normal 37-47 [facility] Comment on above: Performed By: #### L 100.0100 #### [facility] [address] [place], [address] Hemoglobin (Bld) [Mass/Vol] 13.2 g/dL Normal 12.0-15.0 [facility] Comment on above: Performed By: #### L 100.0100 #### [facility] [address] [place], [address] IG% 0.600 Normal 0.0-0.9 [facility] Comment on above: Result Comment: IG% - Immature Granulocytes (promyelocytes, myelocytes and metamyelocytes) > 1% indicates that a LEFT SHIFT is Present. Performed By: #### L 100.0100 #### [facility] [address] [place], [address] Lymphocytes/100 WBC (Bld) 20.7 % Normal 19-41 [facility] Comment on above: Performed By: #### L 100.0100 #### [facility] [address] [place], [address] MCH (RBC) [Entitic mass] 28.9 pg Normal 27.0-32.0 [facility] Comment on above: Performed By: #### L 100.0100 #### [facility] [address] [place], [address] MCHC (RBC) [Mass/Vol] 32.7 g/dL Normal 32-36 [facility] Comment on above: Performed By: #### L 100.0100 #### [facility] [address] [place], [address] MCV (RBC) [Entitic vol] 88.4 fL Normal 81-99 [facility] Comment on above: Performed By: #### L 100.0100 #### [facility] [address] [place], [address] Monocytes/100 WBC (Bld) 4.5 % Normal 0-10 [facility] Comment on above: Performed By: #### L 100.0100 #### [facility] [address] [place], [address] Neutrophils/100 WBC (Bld) 73.4 % High 47-70 [facility] Comment on above: Performed By: #### L 100.0100 #### [facility] [address] [place], [address] Nucleated RBC (Bld) [#/Vol] 0 10*3/uL Normal 0-5 [facility] Comment on above: Performed By: #### L 100.0100 #### [facility] [address] [place], [address] Platelet mean volume (Bld) [Entitic vol] 11.6 fL Normal 6.2-12.0 [facility] Comment on above: Performed By: #### L 100.0100 #### [facility] [address] [place], [address] Platelets (Bld) [#/Vol] 202 10*3/uL Normal 150-450 [facility] Comment on above: Performed By: #### L 100.0100 #### [facility] [address] [place], [address] RBC (Bld) [#/Vol] 4.57 10*6/uL Normal 4.2-5.4 [facility] Comment on above: Performed By: #### L 100.0100 #### [facility] [address] [place], [address] RDW SD 43.2 fl Normal 35.1-43.9 [facility] Comment on above: Performed By: #### L 100.0100 #### [facility] [address] [place], [address] WBC (Bld) [#/Vol] 10.6 10*3/uL Normal 4.4-11.0 [facility] Comment on above: Performed By: #### L 100.0100 #### [facility] [address] [place], [address] CNPNon 05-19-2024 CNPN Normal [facility] Low Dose CT Lung Screeningon 05-04-[address] Lung Screening [facility] [address] [place] [address] Lung Screening MR#: [id number] Acct: [id number] Name: BRENDA LE Rep #: [id number] : 1965 F 58 From: Quentin Kessler MD PCP: Dr. Aleksandar Jones MD Status: [facility] Study: Low Dose CT Lung Screening Date of Exam: 05/04 Exam# [id number] Ordering Dr: Koby Ramirez MD [id number] STUDY: LOW DOSE CT LUNG CANCER SCREENING REASON FOR EXAM: Female, 58 years old. SCREEN. Smoked 2 packs per day since age 14. Quitting 11 years ago RADIATION DOSAGE (If Supplied By Facility): CTDIvol = ( 3.02 ) mGy, DLP = ( 93.65 ) mGycm TECHNIQUE: No contrast was administered. Low dose technique was utilized (average mAS-38 and kVp 120). 1.25 mm axial source images with a slice interval of 1.25-mm were reconstructed in lung windows. Coronal and sagittal reformats submitted. COMPARISON: April 30, 2023, April 18, 2022, April 10, 2021 NODULES: No suspicious pulmonary nodules. Parenchyma: Subsegmental atelectasis in the lower lungs. No consolidation, effusion, or pneumothorax. Endobronchial lesion: No endobronchial lesion. Aorta: Aortic atherosclerosis without ectasia CORONARY ARTERIES: No densely calcified coronary atherosclerosis Heart: No cardiomegaly or pericardial effusion. Pulmonary artery: No main pulmonary arterial enlargement. Mediastinal nodes: Scattered subcentimeter calcified and noncalcified mediastinal and hilar lymph nodes, nonpathologic by size criteria compatible with sequela of prior granulomatous disease. Other chest and abdominal findings: Unremarkable thyroid. Unremarkable esophagus. No acute finding within the upper abdomen. CT/Low Dose CT Lung Screening IMPRESSION: No evidence of malignancy. Lung-RADS category 1 - Continue annual screening with LDCT in 12 months. IMPORTANT NOTES FOR USE: ACR Lung-RADS Version 1.1 Assessment Categories Release Date: 2018 Category: Coded 0-4 bases on nodule(s) with highest degree of suspicion. Negative screen is defined as categories 1 and 2; a positive screen is defined as categories 3 and 4. Category 3 and 4A nodules that are unchanged on interval CT should be coded as category 2, and individuals returned to screening in 12 months. Category 4X: Category 3 or 4 nodules with additional imaging findings that increase the suspicion of lung cancer, such as spiculation, GGN that doubles in size in 1 year, enlarged lymph notes, etc. Category Modifiers: S (significant finding unrelated to lung cancer) Electronically Signed: Quentin Kessler MD at 7:50 EDT , CC: Dr. Koby Ramirez MD; Dr. 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, [address] Absolute Neut 5.3 X10 3/uL Normal 2.0-7.7 [facility] Comment on above: Performed By: #### L 100.0100 #### [facility] [address] [place], [address] Basophils/100 WBC (Bld) 0.5 % Normal 0-1 [facility] Comment on above: Performed By: #### L 100.0100 #### [facility] [address] [place], [address] Eosinophils/100 WBC (Bld) 0.1 % Normal 0-5 [facility] Comment on above: Performed By: #### L 100.0100 #### [facility] [address] [place], [address] Erythrocyte distribution width (RBC) [Ratio] 13.7 % Normal 11.6-14.6 [facility] Comment on above: Performed By: #### L 100.0100 #### [facility] [address] [place], [address] Hematocrit (Bld) [Volume fraction] 40.8 % Normal 37-47 [facility] Comment on above: Performed By: #### L 100.0100 #### [facility] [address] [place], [address] Hemoglobin (Bld) [Mass/Vol] 13.4 g/dL Normal 12.0-15.0 [facility] Comment on above: Performed By: #### L 100.0100 #### [facility] [address] [place], [address] IG% 0.500 Normal 0.0-0.9 [facility] Comment on above: Result Comment: IG% - Immature Granulocytes (promyelocytes, myelocytes and metamyelocytes) > 1% indicates that a LEFT SHIFT is Present. Performed By: #### L 100.0100 #### [facility] [address] [place], [address] Lymphocytes/100 WBC (Bld) 28.9 % Normal 19-41 [facility] Comment on above: Performed By: #### L 100.0100 #### [facility] [address] [place], [address] MCH (RBC) [Entitic mass] 29.1 pg Normal 27.0-32.0 [facility] Comment on above: Performed By: #### L 100.0100 #### [facility] [address] [place], [address] MCHC (RBC) [Mass/Vol] 32.8 g/dL Normal 32-36 [facility] Comment on above: Performed By: #### L 100.0100 #### [facility] [address] [place], [address] MCV (RBC) [Entitic vol] 88.7 fL Normal 81-99 [facility] Comment on above: Performed By: #### L 100.0100 #### [facility] [address] [place], [address] Monocytes/100 WBC (Bld) 7.2 % Normal 0-10 [facility] Comment on above: Performed By: #### L 100.0100 #### [facility] [address] [place], [address] Neutrophils/100 WBC (Bld) 62.8 % Normal 47-70 [facility] Comment on above: Performed By: #### L 100.0100 #### [facility] [address] [place], [address] Nucleated RBC (Bld) [#/Vol] 0 10*3/uL Normal 0-5 [facility] Comment on above: Performed By: #### L 100.0100 #### [facility] [address] [place], [address] Platelet mean volume (Bld) [Entitic vol] 11.8 fL Normal 6.2-12.0 [facility] Comment on above: Performed By: #### L 100.0100 #### [facility] [address] [place], [address] Platelets (Bld) [#/Vol] 178 10*3/uL Normal 150-450 [facility] Comment on above: Performed By: #### L 100.0100 #### [facility] [address] [place], [address] RBC (Bld) [#/Vol] 4.60 10*6/uL Normal 4.2-5.4 [facility] Comment on above: Performed By: #### L 100.0100 #### [facility] [address] [place], [address] RDW SD 44.3 fl High 35.1-43.9 [facility] Comment on above: Performed By: #### L 100.0100 #### [facility] [address] [place], [address] WBC (Bld) [#/Vol] 8.5 10*3/uL Normal 4.4-11.0 [facility] Comment on above: Performed By: #### L 100.0100 #### [facility] [address] [place], [address] CNOVon 04-14-2024 CNOV Normal [facility] CNTHERAPYon 04-01-2024 CNTHERAPY Normal [facility] CBC W Auto Differential pane l (Bld)on 03-30-2024 Basophils (Bld) [#/Vol] 0.04 10*3/uL Normal <0.11 [facility] Comment on above: Order Comment: Speci men Type: BLOOD SPECIMENOrdering Facility: [facility] Address: [address] [place] [address] Performed By: #### 5 7021-8 ####[facility] LABCLIA [id number] [place] [address] [place] Basophils/100 WBC (Bld) 0.5 % Normal C [facility] Comment on above: Order Comment: Speci men Type: BLOOD SPECIMENOrdering Facility: [facility] Address: [address] [place] [address] Performed By: #### 5 7021-8 ####[facility] LABCLIA [id number] [place] [address] [place] Differential cell count method Nom (Bld) Auto Normal [facility] Comment on above: Order Comment: Speci men Type: BLOOD SPECIMENOrdering Facility: [facility] Address: [address] [place] [address] Performed By: #### 5 7021-8 ####[facility] LABCLIA [id number] [place] [address] [place] Eosinophils (Bld) [#/Vol] 10*3/uL Normal <0.46 [facility] Comment on above: Order Comment: Speci men Type: BLOOD SPECIMENOrdering Facility: [facility] Address: [address] [place] [address] Performed By: #### 5 7021-8 ####[facility] LABCLIA [id number] [place] [address] [place] Eosinophils/100 WBC (Bld) 0.2 % Normal [facility] Comment on above: Order Comment: Speci men Type: BLOOD SPECIMENOrdering Facility: [facility] Address: [address] [place] [address] Performed By: #### 5 7021-8 ####[facility] LABCLIA [id number] [place] [address] [place] Erythrocyte distribution width (RBC) [Ratio] 13.9 % Normal 11.5-15.0 [facility] Comment on above: Order Comment: Speci men Type: BLOOD SPECIMENOrdering Facility: [facility] Address: [address] [place] [address] Performed By: #### 5 7021-8 ####[facility] LABCLIA [id number] [place] [address] [place] Hematocrit (Bld) [Volume fraction] 45.3 % Normal 36.0-46.0 [facility] Comment on above: Order Comment: Speci men Type: BLOOD SPECIMENOrdering Facility: [facility] Address: [address] [place] [address] Performed By: #### 5 7021-8 ####[facility] LABCLIA [id number] [place] [address] [place] Hemoglobin (Bld) [Mass/Vol] 14.5 g/dL Normal 11.5-15.5 [facility] Comment on above: Order Comment: Speci men Type: BLOOD SPECIMENOrdering Facility: [facility] Address: [address] [place] [address] Performed By: #### 5 7021-8 ####[facility] LABCLIA [id number] [place] [address] [place] Immature granulocytes (Bld) [#/Vol] 0.03 10*3/uL Normal <0.10 [facility] Comment on above: Order Comment: Speci men Type: BLOOD SPECIMENOrdering Facility: [facility] Address: [address] [place] [address] Performed By: #### 5 7021-8 ####[facility] LABCLIA [id number] [place] [address] [place] Immature granulocytes/100 WBC (Bld) 0.3 % Normal [facility] Comment on above: Order Comment: Speci men Type: BLOOD SPECIMENOrdering Facility: [facility] Address: [address] [place] [address] Performed By: #### 5 7021-8 ####[facility] LABCLIA [id number] [place] [address] [place] Lymphocytes (Bld) [#/Vol] 2.85 10*3/uL Normal 1.00-4.00 [facility] Comment on above: Order Comment: Speci men Type: BLOOD SPECIMENOrdering Facility: [facility] Address: [address] [place] [address] Performed By: #### 5 7021-8 ####[facility] LABIA [id number] [place] [address] [place] Lymphocytes/100 WBC (Bld) 32.6 % Normal [facility] Comment on above: Order Comment: Speci men Type: BLOOD SPECIMENOrdering Facility: [facility] Address: [address] [place] [address] Performed By: #### 5 7021-8 ####[facility] LABIA [id number] [place] [address] [place] MCH (RBC) [Entitic mass] 28.8 pg Normal 26.0-34.0 [facility] Comment on above: Order Comment: Speci men Type: BLOOD SPECIMENOrdering Facility: [facility] Address: [address] [place] [address] Performed By: #### 5 7021-8 ####[facility] LABIA [id number] [place] [address] [place] MCHC (RBC) [Mass/Vol] 32.0 g/dL Normal 30.5-36.0 [facility] Comment on above: Order Comment: Speci men Type: BLOOD SPECIMENOrdering Facility: [facility] Address: [address] [place] [address] Performed By: #### 5 7021-8 ####[facility] LABIA [id number] [place] [address] [place] MCV (RBC) [Entitic vol] 90.1 fL Normal 80.0-100.[address] [facility] Comment on above: Order Comment: Speci men Type: BLOOD SPECIMENOrdering Facility: [facility] Address: [address] [place] [address] Performed By: #### 5 7021-8 ####[facility] LABIA [id number] [place] [address] [place] Monocytes (Bld) [#/Vol] 0.56 10*3/uL Normal <0.87 [facility] Comment on above: Order Comment: Speci men Type: BLOOD SPECIMENOrdering Facility: [facility] Address: [address] [place] [address] Performed By: #### 5 7021-8 ####[facility] LABIA [id number] [place] [address] [place] Monocytes/100 WBC (Bld) 6.4 % Normal C [facility] Comment on above: Order Comment: Speci men Type: BLOOD SPECIMENOrdering Facility: [facility] Address: [address] [place] [address] Performed By: #### 5 7021-8 ####[facility] LABIA [id number] [place] [address] [place] Neutrophils (Bld) [#/Vol] 5.23 10*3/uL Normal 1.45-7.50 [facility] Comment on above: Order Comment: Speci men Type: BLOOD SPECIMENOrdering Facility: [facility] Address: [address] [place] [address] Performed By: #### 5 7021-8 ####[facility] LABIA [id number] [place] [address] [place] Neutrophils/100 WBC (Bld) 60.0 % Normal [facility] Comment on above: Order Comment: Speci men Type: BLOOD SPECIMENOrdering Facility: [facility] Address: [address] [place] [address] Performed By: #### 5 7021-8 ####[facility] LABCLIA [id number] [place] [address] [place] Nucleated RBC (Bld) [#/Vol] 10*3/uL Normal <0.01 [facility] Comment on above: Order Comment: Speci men Type: BLOOD SPECIMENOrdering Facility: [facility] Address: [address] [place] [address] Performed By: #### 5 7021-8 ####[facility] LABIA [id number] [place] [address] [place] Nucleated RBC/100 WBC (Bld) [Ratio] 0.0 /100 WBC Normal [facility] Comment on above: Order Comment: Speci men Type: BLOOD SPECIMENOrdering Facility: [facility] Address: [address] [place] [address] Performed By: #### 5 7021-8 ####[facility] LABIA [id number] [place] [address] [place] Platelet mean volume (Bld) [Entitic vol] 12.2 fL Normal 9.0-12.7 [facility] Comment on above: Order Comment: Speci men Type: BLOOD SPECIMENOrdering Facility: [facility] Address: [address] [place] [address] Performed By: #### 5 7021-8 ####[facility] LABIA [id number] [place] [address] [place] Platelets (Bld) [#/Vol] 154 10*3/uL Normal 150-400 [facility] Comment on above: Order Comment: Speci men Type: BLOOD SPECIMENOrdering Facility: [facility] Address: [address] [place] [address] Performed By: #### 5 7021-8 ####[facility] LABCLIA [id number] [place] [address] [place] RBC (Bld) [#/Vol] 5.03 10*6/uL Normal 3.90-5.20 [facility] Comment on above: Order Comment: Speci men Type: BLOOD SPECIMENOrdering Facility: [facility] Address: [address] [place] [address] Performed By: #### 5 7021-8 ####[facility] LABIA [id number] [place] [address] [place] WBC (Bld) [#/Vol] 8.73 10*3/uL Normal 3.70-11.00 [facility] Comment on above: Order Comment: Speci men Type: BLOOD SPECIMENOrdering Facility: [facility] Address: [address] [place] [address] Performed By: #### 5 7021-8 ####[facility] LABIA [id number] [place] [address] [place] CNOVon 03-30-2024 CNOV Normal [facility] CNTHERAPYon 03-30-2024 CNTHERAPY Normal [facility] Hepatic function 2000 panelo n 03-30-2024 Albumin [Mass/Vol] 4.4 g/dL Normal 3.9-4.9 [facility] Comment on above: Order Comment: Speci men Type: BLOOD SPECIMENOrdering Facility: [facility] Address: [address] [place] [address] Performed By: #### 2 4325-3 ####[facility] LABIA [id number] [place] [address] [place] ALP [Catalytic activity/Vol] 122 U/L Normal 34-123 [facility] Comment on above: Order Comment: Speci men Type: BLOOD SPECIMENOrdering Facility: [facility] Address: [address] [place] [address] Performed By: #### 2 4325-3 ####[facility] LABCLIA [id number] [place] [address] [place] ALT [Catalytic activity/Vol] 31 U/L Normal 7-38 [facility] Comment on above: Order Comment: Speci men Type: BLOOD SPECIMENOrdering Facility: [facility] Address: [facility] [place] [address] Performed By: #### 2 4325-3 ####[facility] LABCLIA [id number] [place] [address] [place] AST [Catalytic activity/Vol] 24 U/L Normal 13-35 [facility] Comment on above: Order Comment: Speci men Type: BLOOD SPECIMENOrdering Facility: [facility] Address: [address] [place] [address] Performed By: #### 2 4325-3 ####[facility] LABCLIA [id number] [place] [address] [place] Bilirubin [Mass/Vol] 0.4 mg/dL Normal 0.2-1.3 [facility] Comment on above: Order Comment: Speci men Type: BLOOD SPECIMENOrdering Facility: [facility] Address: [address] [place] [address] Performed By: #### 2 4325-3 ####[facility] LABCLIA [id number] [place] [address] [place] Bilirubin.conjugated [Mass/Vol] mg/dL Normal <0.2 [facility] Comment on above: Order Comment: Speci men Type: BLOOD SPECIMENOrdering Facility: [facility] Address: [address] [place], [place] [address] Performed By: #### 2 4325-3 ####[facility] LABCLIA [id number] [place] [address] [place] Protein [Mass/Vol] 7.6 g/dL Normal 6.3-8.0 [facility] Comment on above: Order Comment: Speci men Type: BLOOD SPECIMENOrdering Facility: [facility] Address: [address] [place] [address] Performed By: #### 2 4325-3 ####[facility] LABCLIA [id number] [id number] [id number] [place] CNTHERAPYon 03-25-2024 CNTHERAPY Normal [facility] CBC W/Diff, Automatedon 03-13 SMEAR COMMENT SCANNED Normal [facility] Comment on above: Performed By: #### L 100.0100 #### [facility] [address] [place], [place], [address] CNTHERAPYon 03-23-2024 CNTHERAPY Normal [facility] CNOVon 03-19-2024 CNOV Normal [facility] CNPNon 03-18-2024 CNPN Normal [facility] CNTHERAPYon 03-18-2024 CNTHERAPY Normal [facility] CBC W Auto Differential pane l (Bld)on 03-02-2024 Basophils (Bld) [#/Vol] 0.05 10*3/uL [facility] Basophils/100 WBC (Bld) 0.6 % [facility] Differential cell count method Nom (Bld) Auto [facility] Eosinophils (Bld) [#/Vol] 0.03 10*3/uL [facility] Eosinophils/100 WBC (Bld) 0.3 % [facility] Erythrocyte distribution width (RBC) [Ratio] 13.9 % 11.5 - 15.0 % [facility] Hematocrit (Bld) [Volume fraction] 43.6 % 36.0 - 46.0 % [facility] Hemoglobin (Bld) [Mass/Vol] 14.1 g/dL 11.5 - 15.5 g/dL [facility] Immature granulocytes (Bld) [#/Vol] 0.03 10*3/uL [facility] Immature granulocytes/100 WBC (Bld) 0.3 % [facility] Interpretation and review of laboratory results Abnormal [facility] Lymphocytes (Bld) [#/Vol] 2.53 10*3/uL [facility] Lymphocytes/100 WBC (Bld) 28.7 % [facility] MCH (RBC) [Entitic mass] 28.7 pg 26. 0 - 34.0 pg [facility] MCHC (RBC) [Mass/Vol] 32.3 g/dL 30.5 - 36.0 g/dL [facility] MCV (RBC) [Entitic vol] 88.6 fL 80.0 - 100.0 fL [facility] Monocytes (Bld) [#/Vol] 0.61 10*3/uL NINF [facility] Monocytes/100 WBC (Bld) 6.9 % C [facility] Neutrophils (Bld) [#/Vol] 5.58 10*3/uL [facility] Neutrophils/100 WBC (Bld) 63.2 % [facility] Nucleated RBC (Bld) [#/Vol] NINF [facility] Nucleated RBC/100 WBC (Bld) [Ratio] 0.0 % /100 WBC [facility] Platelet mean volume (Bld) [Entitic vol] 12.5 fL 9.0 - 12.7 fL [facility] Platelets (Bld) [#/Vol] 123 10*3/uL Low [facility] RBC (Bld) [#/Vol] 4.92 10*6/uL 3.90 - 5.2 0 m/uL [facility] WBC (Bld) [#/Vol] 8.83 10*3/uL [facility] Comprehensive metabolic 2000 panelon 03-02-2024 Albumin [Mass/Vol] 4.2 g/dL 3.9 - 4.9 g/dL [facility] ALP [Catalytic activity/Vol] 139 U/L High 34 - 123 U/L [facility] ALT [Catalytic activity/Vol] 52 U/L High 7 - 38 U/L [facility] Anion gap [Moles/Vol] 13 mmol/L 9 - 18 mmol/L [facility] AST [Catalytic activity/Vol] 38 U/L High 13 - 35 U/L [facility] Bilirubin [Mass/Vol] 0.4 mg/dL 0.2 - 1 .3 mg/dL [facility] Calcium [Mass/Vol] 10.0 mg/dL 8.5 - 10. 2 mg/dL [facility] Chloride [Moles/Vol] 98 mmol/L 97 - 10 5 mmol/L [facility] CO2 [Moles/Vol] 26 mmol/L 22 - 30 mmol/L [facility] Creatinine [Mass/Vol] 0.51 mg/dL Low 0.58 - 0.96 mg/dL [facility] GFR/1.73 sq M.predicted among non-blacks MDRD (S/P/Bld) [Vol rate/Area] 107 mL/min/{1.73_m2} - PINF [facility] Comment on above: Estimated Glomerular Filtration Rate (eGFR) is calculated using the 2020 CKD-EPI creatinine equation. This equation utilizes serum creatinine, sex, and age as parameters. The creatinine assay has traceable calibration to isotope dilution-mass spectrometry. Refer to KDIGO guidelines for clinical interpretation. In patients with unstable renal function, e.g. those with acute kidney injury, the eGFR may not accurately reflect actual GFR. Glucose [Mass/Vol] 131 mg/dL High 74 - 99 mg/dL [facility] Comment on above: The [place] Di[employer] Association (ADA) provides guidance for cutoff values for fasting glucose and random glucose. The ADA defines fasting as no caloric intake for at least 8 hours. Fasting plasma glucose results between 100 to 125 [...] Standards of Medical Care in Diabetes 2016, [place] [employer]. Diabetes Care. 2016.39(Suppl 1). Interpretation and review of laboratory results Abnormal [facility] Potassium [Moles/Vol] 4.6 mmol/L 3.7 - 5.1 mmol/L [facility] Protein [Mass/Vol] 7.7 g/dL 6.3 - 8.0 g/dL [facility] Sodium [Moles/Vol] 137 mmol/L 136 - 144 mmol/L [facility] Urea nitrogen [Mass/Vol] 19 mg/dL 7 - 21 mg/dL [facility] FOLATE, SERUMon 03-02-2024 Folate [Mass/Vol] 15.4 ng/mL 4.7 - PINF ng/mL [facility] Folate [Mass/Vol]on 03-02-20 Interpretation and review of laboratory results Normal [facility] HbA1c (Bld)on 03-02-2024 Average glucose Estimated from glycated hemoglobin (Bld) [Mass/Vol] 166 mg/dL [facility] Comment on above: eAG: (Estimated aver age glucose) is a calculated value from HgbA1c and is installation service representative of the average blood glucose level in the last 2-3 month period. HbA1c (Bld) [Mass fraction] 7.4 % High 4.3 - 5.6 % [facility] Comment on above: [place] Diabetes As sociation guidelines indicate that patients with HgbA1c in the range 5.7-6.4% are at increased risk for development of diabetes, and intervention by lifestyle modification may be beneficial. HgbA1c greater or equal to 6.5% is considered diagnostic of diabetes. Interpretation and review of laboratory results Abnormal [facility] MAGNESIUMon 03-02-2024 Magnesium [Mass/Vol] 2.3 mg/dL 1.7 - 2 .3 mg/dL [facility] Magnesium [Mass/Vol]on 03-02 Interpretation and review of laboratory results Normal [facility] No Panel Informationon 03-02 Interpretation and review of laboratory results Normal [facility] T4 FREE/FREE THYROXINEon Free T4 [Mass/Vol] 0.9 ng/dL 0.9 - 1.7 ng/dL [facility] THYROID STIMULATING HORMONEo n 03-02-2024 TSH Qn 1.620 m[IU]/L [facility] Urinalysis complete panel (U )on 03-02-2024 Bacteria LM.HPF (Urine sed) [#/Area] Negative Negative /HPF [facility] Bilirubin Ql (U) Negative Negative [facility] Clarity (Unsp spec) Clear Clear [facility] Color (U) Yellow Yellow [facility] Epithelial cells LM.HPF (Urine sed) [#/Area] None Seen /HPF [facility] Glucose Test strip (U) [Mass/Vol] 3+ Abnormal Negative [facility] Hemoglobin Ql (U) Negative Negative [facility] Hyaline casts (Urine sed) [#/Area] 0 /[LPF] 0 /LPF [facility] Interpretation and review of laboratory results Abnormal [facility] Ketones Ql (U) Negative Negative [facility] Leukocyte esterase Test strip Ql (U) Negative Negative [facility] Nitrite Ql (U) Negative Negative [facility] pH (U) 6.5 [pH] NINF - 8.5 [facility] Protein (U) [Mass/Vol] Negative Negative Cl [facility] RBC LM.HPF (Urine sed) [#/Area] 0-2 /HPF 0-2 /HPF [facility] Specific gravity (U) [Rel density] 1.009 1.005 - 1.030 [facility] Urobilinogen Ql (U) 0.2 EU/dL 0.2-1.0 EU/dL [facility] WBC LM.HPF (Urine sed) [#/Area] 0-5 /HPF 0-5 /HPF [facility] This test was develo ped and its performance characteristics determined by [facility]'s [facility] [place] ([facility] It has not been cleared or approved by the FDA. -[facility] is regulated under CLIA as qualified to perform high-complexity testing. This test is used for clinical purposes. It should not be regarded as investigational or for research. [facility] Absolute lymphocyte countOrd ered By: Lorraine Springer on 02-03-2024 Lymphocytes Auto (Unsp spec) [#/Vol] 2.53 10*3/uL 0.83-4.51 [facility] Automated lymphocyte count a s percentage of total leukocytesOrdered By: Lorraine Springer on 02-03-2024 Lymphocytes/100 WBC Auto (Unsp spec) 25.5 % 19-41 [facility] Basophil percentageOrdered B y: Lorraine Springer on 02-03-2024 Basophils/100 WBC (Bld) 0.4 % 0-1 [facility] Eosinophils/100 WBC (Bld) 0.5 % 0-5 [facility] Hemoglobin (Bld) [Mass/Vol] 13.5 g/dL 12.0-15.0 [facility] Monocytes/100 WBC (Bld) 6.8 % 0-10 [facility] Neutrophils (Bld) [#/Vol] 6.6 10*3/uL 2.0-7.7 [facility] Neutrophils/100 WBC (Bld) 66.5 % 47-70 [facility] WBC (Bld) [#/Vol] 9.9 10*3/uL 4.4-11.0 [facility] Determination of erythrocyte mean corpuscular volume (MCV)Ordered By: Lorraine Springer on 02-03-2024 MCV (RBC) [Entitic vol] 88.7 fL 81-99 [facility] Erythrocyte distribution wid th ratioOrdered By: Lorraine Springer on 02-03-2024 Erythrocyte distribution width (RBC) [Ratio] 13.8 % 11.6-14.6 [facility] Erythrocyte distribution wid th standard deviationOrdered By: Lorraine Springer on 02-03-2024 Erythrocyte distribution width (RBC) [Entitic vol] 44.4 fL 35.1-43.9 [facility] Hematocrit Auto (Bld) [Volum e fraction]Ordered By: Lorraine Springer on 02-03-2024 Hematocrit (Bld) [Volume fraction] 41.7 % 37-47 [facility] Immature granulocytes/100 WB C Auto (Bld)Ordered By: Lorraine Springer on 02-03-2024 Immature granulocytes/100 WBC (Bld) 0.300 % 0.0-0.9 [facility] Comment on above: IG% - Immature Granu locytes (promyelocytes, myelocytes and metamyelocytes) > 1% indicates that a LEFT SHIFT is Present. Laboratory - Hematology and Cell countsOrdered By: Lorraine Springer on 02-03-2024 MCH (RBC) [Entitic mass] 28.7 pg 27.0-32.0 [facility] MCHC (RBC) [Mass/Vol] 32.4 g/dL 32-36 [facility] Nucleated RBC/100 WBC (Bld) [Ratio] 0 % 0-5 [facility] Platelet mean volume (Bld) [Entitic vol] 11.1 fL 6.2-12.0 [facility] Platelets (Bld) [#/Vol] 190 10*3/uL 150-450 [facility] RBC Auto (Bld) [#/Vol]Ordere d By: Lorraine Springer on 02-03-2024 RBC (Bld) [#/Vol] 4.70 10*6/uL 4.2-5.4 [facility] Absolute lymphocyte countOrd ered By: Lorraine Springer on 01-07-2024 Lymphocytes Auto (Unsp spec) [#/Vol] 1.58 10*3/uL 0.83-4.51 [facility] Automated lymphocyte count a s percentage of total leukocytesOrdered By: Lorraine Springer on 01-07-2024 Lymphocytes/100 WBC Auto (Unsp spec) 21.1 % 19-41 [facility] Basophil percentageOrdered B y: Lorraine Springer on 01-07-2024 Basophils/100 WBC (Bld) 0.4 % 0-1 [facility] Eosinophils/100 WBC (Bld) 0.1 % 0-5 [facility] Hemoglobin (Bld) [Mass/Vol] 13.1 g/dL 12.0-15.0 [facility] Monocytes/100 WBC (Bld) 3.7 % 0-10 [facility] Neutrophils (Bld) [#/Vol] 5.6 10*3/uL 2.0-7.7 [facility] Neutrophils/100 WBC (Bld) 74.3 % 47-70 [facility] WBC (Bld) [#/Vol] 7.5 10*3/uL 4.4-11.0 [facility] Determination of erythrocyte mean corpuscular volume (MCV)Ordered By: Lorraine Springer on 01-07-2024 MCV (RBC) [Entitic vol] 89.5 fL 81-99 [facility] Erythrocyte distribution wid th ratioOrdered By: Lorraine Springer on 01-07-2024 Erythrocyte distribution width (RBC) [Ratio] 13.7 % 11.6-14.6 [facility] Erythrocyte distribution wid th standard deviationOrdered By: Lorraine Springer on 01-07-2024 Erythrocyte distribution width (RBC) [Entitic vol] 44.7 fL 35.1-43.9 [facility] Hematocrit Auto (Bld) [Volum e fraction]Ordered By: Lorraine Springer on 01-07-2024 Hematocrit (Bld) [Volume fraction] 41.1 % 37-47 [facility] Immature granulocytes/100 WB C Auto (Bld)Ordered By: Lorraine Springer on 01-07-2024 Immature granulocytes/100 WBC (Bld) 0.400 % 0.0-0.9 [facility] Comment on above: IG% - Immature Granu locytes (promyelocytes, myelocytes and metamyelocytes) > 1% indicates that a LEFT SHIFT is Present. Laboratory - Hematology and Cell countsOrdered By: Lorraine Springer on 01-07-2024 MCH (RBC) [Entitic mass] 28.5 pg 27.0-32.0 [facility] MCHC (RBC) [Mass/Vol] 31.9 g/dL 32-36 [facility] Nucleated RBC/100 WBC (Bld) [Ratio] 0 % 0-5 [facility] Platelet mean volume (Bld) [Entitic vol] 10.8 fL 6.2-12.0 [facility] Platelets (Bld) [#/Vol] 188 10*3/uL 150-450 [facility] RBC Auto (Bld) [#/Vol]Ordere d By: Lorraine Springer on 01-07-2024 RBC (Bld) [#/Vol] 4.59 10*6/uL 4.2-5.4 [facility] Absolute lymphocyte countOrd ered By: Jey Quesada on 12-13-2023 Lymphocytes Auto (Unsp spec) [#/Vol] 1.30 10*3/uL 0.83-4.51 [facility] Automated lymphocyte count a s percentage of total leukocytesOrdered By: Jey Quesada on 12-13-2023 Lymphocytes/100 WBC Auto (Unsp spec) 8.5 % 19-41 [facility] Basophil percentageOrdered B y: Jey Quesada on 12-13-2023 Basophil percentage 0-5 SEEN /hpf 0-5 [facility] Basophils/100 WBC (Bld) 0.2 % 0-1 [facility] Bilirubin [Mass/Vol] 0.50 mg/dL 0.20-1.00 [facility] Comment on above: For patients on eltr ombopag therapy, use of Dimension Icard TBIL is not recommended. Chloride [Moles/Vol] 100 mmol/L 98-107 [facility] Eosinophils/100 WBC (Bld) 0.3 % 0-5 [facility] Glucose [Mass/Vol] 146 mg/dL 74-106 [facility] Comment on above: Fasting Glucose resu lt greater than or equal to 126 mg/dL suggests DIABETES MELLITUS per A.D.A. criteria. Hemoglobin (Bld) [Mass/Vol] 14.1 g/dL 12.0-15.0 [facility] Monocytes/100 WBC (Bld) 7.2 % 0-10 [facility] Neutrophils (Bld) [#/Vol] 12.8 10*3/uL 2.0-7.7 [facility] Neutrophils/100 WBC (Bld) 83.5 % 47-70 [facility] Potassium [Moles/Vol] 4.1 mmol/L 3.5-5.1 [facility] Protein [Mass/Vol] 7.2 g/dL 6.4-8.2 [facility] Sodium [Moles/Vol] 129 mmol/L 136-145 [facility] WBC (Bld) [#/Vol] 15.3 10*3/uL 4.4-11.0 [facility] Bilirubin Test strip Ql (U)O rdered By: Jey Quesada on 12-13-2023 Bilirubin Ql (U) Negative Negative [facility] Determination of erythrocyte mean corpuscular volume (MCV)Ordered By: Jey Quesada on 12-13-2023 MCV (RBC) [Entitic vol] 87.1 fL 81-99 [facility] Erythrocyte distribution wid th ratioOrdered By: Jey Quesada on 12-13-2023 Erythrocyte distribution width (RBC) [Ratio] 13.5 % 11.6-14.6 [facility] Erythrocyte distribution wid th standard deviationOrdered By: Jey Quesada on 12-13-2023 Erythrocyte distribution width (RBC) [Entitic vol] 42.6 fL 35.1-43.9 [facility] Hematocrit Auto (Bld) [Volum e fraction]Ordered By: Jey Quesada on 12-13-2023 Hematocrit (Bld) [Volume fraction] 42.7 % 37-47 [facility] Immature granulocytes/100 WB C Auto (Bld)Ordered By: Jey Quesada on 12-13-2023 Immature granulocytes/100 WBC (Bld) 0.300 % 0.0-0.9 [facility] Comment on above: IG% - Immature Granu locytes (promyelocytes, myelocytes and metamyelocytes) > 1% indicates that a LEFT SHIFT is Present. Ketones Test strip Ql (U)Ord ered By: Jey Quesada on 12-13-2023 Ketones Ql (U) 5 mg/dl Negative [facility] Laboratory - Chemistry and C hemistry - challengeOrdered By: Jey Quesada on 12-13-2023 Albumin/Globulin [Mass ratio] 0.9 {ratio} 0.9-2.4 [facility] ALP [Catalytic activity/Vol] 141 U/L 45-117 [facility] ALT [Catalytic activity/Vol] 43 U/L 13-56 [facility] CO2 [Moles/Vol] 22.0 mmol/L 21.0-32.0 [facility] Globulin (S) [Mass/Vol] 3.7 g/dL 2.2-4.2 [facility] Lipase [Catalytic activity/Vol] 37 U/L 13-75 [facility] Comment on above: Please note:LIPASE r evised reference range effective 23. New Lipase methodology. Expected to produce lower values than the previous assay method. NEW Reference Range: 13 - 75 U/L Urea nitrogen/Creatinine [Mass ratio] 39.8 mg/mg 10-20 [facility] Laboratory - Hematology and Cell countsOrdered By: Jey Quesada on 12-13-2023 MCH (RBC) [Entitic mass] 28.8 pg 27.0-32.0 [facility] MCHC (RBC) [Mass/Vol] 33.0 g/dL 32-36 [facility] Nucleated RBC/100 WBC (Bld) [Ratio] 0 % 0-5 [facility] Platelet mean volume (Bld) [Entitic vol] 9.5 fL 6.2-12.0 [facility] Platelets (Bld) [#/Vol] 226 10*3/uL 150-450 [facility] Laboratory - Microbiology an d Antimicrobial susceptibilityOrdered By: Jey Quesada on 12-13-2023 SARS-CoV-2 (COVID-19) RNA LUIS M+probe Ql (Unsp spec) [facility] SARS-CoV-2 (COVID-19) RNA LUIS M+probe Ql (Unsp spec) [facility] Mucus LM Ql (Urine sed)Order ed By: Jey Quesada on 12-13-2023 Mucus Ql (Urine sed) 0 SEEN /hpf [facility] Nitrite Test strip Ql (U)Ord ered By: Jey Quesada on 12-13-2023 Nitrite Ql (U) Negative Negative [facility] No Panel InformationOrdered By: Jey Quesada on 12-13-2023 Urine RBC 0 SEEN /hpf 0-5 [facility] Estimated Creatinine Clearance Calc 104.39 ml/min [facility] Estimated GFR (MDRD) Amer 144 mL/min >60 [facility] Comment on above: GFR Calc Estimated GFR (MDRD) Non-Af Amer 119 mL/min >60 [facility] Comment on above: Non- GFR Calc Protein Test strip Ql (U)Ord ered By: Jey Quesada on 12-13-2023 Protein Ql (U) Negative Negative [facility] RBC Auto (Bld) [#/Vol]Ordere d By: Jey Quesada on 12-13-2023 RBC (Bld) [#/Vol] 4.90 10*6/uL 4.2-5.4 [facility] Serum or plasma calcium lawrence urement (mass/volume)Ordered By: Jey Quesada on 12-13-2023 Calcium [Mass/Vol] 9.1 mg/dL 8.5-10.1 [facility] Serum or plasma creatinine m easurement (mass/volume)Ordered By: Jey Quesada on 12-13-2023 Creatinine [Mass/Vol] 0.55 mg/dL 0.55-1.02 [facility] Comment on above: The validity of the calculated GFR & GFRAA in patients over 70 years has not been determined. Clinical correlation is essential. Serum or plasma urea nitroge n measurement (mass/volume)Ordered By: Jey Quesada on 12-13-2023 Urea nitrogen [Mass/Vol] 22 mg/dL 7-18 [facility] Squamous epithelial cells de tection in urine sediment by light microscopyOrdered By: Jey Quesada on 12-13-2023 Epithelial cells.squamous LM Ql (Urine sed) 0-5 SEEN /hpf 5-10 [facility] Thin prep Papanicolaou smear with manual screeningOrdered By: Jey Quesada on 12-13-2023 Thin prep Papanicolaou smear with manual screening 3.5 g/dL 3.2-5.0 [facility] Thin prep Papanicolaou smear with manual screening 23 U/L 15-37 [facility] Thin prep Papanicolaou smear with manual screening 7 5-15 [facility] Urine blood detectionOrdered By: Jey Quesada on 12-13-2023 RBC Ql (U) Negative Negative [facility] Urine clarityOrdered By: Trevor Quesada on 12-13-2023 Clarity (U) Clear Clear [facility] Urine color determinationOrd ered By: Jey Quesada on 12-13-2023 Color (U) Straw Yellow [facility] Urine glucose detectionOrder ed By: Jey Quesada on 12-13-2023 Glucose Ql (U) 1000 mg/dl Normal [facility] Urine leukocyte esterase det ection by dipstickOrdered By: Jey Quesada on 12-13-2023 Leukocyte esterase Test strip Ql (U) 25 /ul Negative [facility] Urine pHOrdered By: Jey holloway on 12-13-2023 pH (U) 6.0 [pH] 5.0 - 8.0 [facility] Urine sediment bacteria coun t by microscopy (number/high power field)Ordered By: Jey Quesada on 12-13-2023 Bacteria LM.HPF (Urine sed) [#/Area] 0 /[HPF] None Seen [facility] Urine specific gravity measu rementOrdered By: Jey Quesada on 12-13-2023 Specific gravity (U) [Rel density] 1.010 1.002-1.030 [facility] Urine urobilinogen measureme ntOrdered By: Jey Quesada on 12-13-2023 Urobilinogen Ql (U) Normal mg/dl Normal [facility] Absolute lymphocyte countOrd ered By: Lorraine Springer on 11-19-2023 Lymphocytes Auto (Unsp spec) [#/Vol] 2.19 10*3/uL 0.83-4.51 [facility] Automated lymphocyte count a s percentage of total leukocytesOrdered By: Lorraine Springer on 11-19-2023 Lymphocytes/100 WBC Auto (Unsp spec) 23.3 % 19-41 [facility] Basophil percentageOrdered B y: Lorraine Springer on 11-19-2023 Basophils/100 WBC (Bld) 0.5 % 0-1 [facility] Eosinophils/100 WBC (Bld) 0.1 % 0-5 [facility] Hemoglobin (Bld) [Mass/Vol] 14.6 g/dL 12.0-15.0 [facility] Monocytes/100 WBC (Bld) 5.8 % 0-10 [facility] Neutrophils (Bld) [#/Vol] 6.6 10*3/uL 2.0-7.7 [facility] Neutrophils/100 WBC (Bld) 69.9 % 47-70 [facility] WBC (Bld) [#/Vol] 9.4 10*3/uL 4.4-11.0 [facility] Determination of erythrocyte mean corpuscular volume (MCV)Ordered By: Lorraine Springer on 11-19-2023 MCV (RBC) [Entitic vol] 90.4 fL 81-99 [facility] Erythrocyte distribution wid th ratioOrdered By: Lorraine Springer on 11-19-2023 Erythrocyte distribution width (RBC) [Ratio] 13.6 % 11.6-14.6 [facility] Erythrocyte distribution wid th standard deviationOrdered By: Lorraine Springer on 11-19-2023 Erythrocyte distribution width (RBC) [Entitic vol] 45.4 fL 35.1-43.9 [facility] Hematocrit Auto (Bld) [Volum e fraction]Ordered By: Lorraine Springer on 11-19-2023 Hematocrit (Bld) [Volume fraction] 46.2 % 37-47 [facility] Immature granulocytes/100 WB C Auto (Bld)Ordered By: Lorraine Springer on 11-19-2023 Immature granulocytes/100 WBC (Bld) 0.400 % 0.0-0.9 [facility] Comment on above: IG% - Immature Granu locytes (promyelocytes, myelocytes and metamyelocytes) > 1% indicates that a LEFT SHIFT is Present. Laboratory - Hematology and Cell countsOrdered By: Lorraine Springer on 11-19-2023 MCH (RBC) [Entitic mass] 28.6 pg 27.0-32.0 [facility] MCHC (RBC) [Mass/Vol] 31.6 g/dL 32-36 [facility] Nucleated RBC/100 WBC (Bld) [Ratio] 0 % 0-5 [facility] Platelet mean volume (Bld) [Entitic vol] 11.3 fL 6.2-12.0 [facility] Platelets (Bld) [#/Vol] 202 10*3/uL 150-450 [facility] RBC Auto (Bld) [#/Vol]Ordere d By: Lorraine Springer on 11-19-2023 RBC (Bld) [#/Vol] 5.11 10*6/uL 4.2-5.4 [facility] Absolute lymphocyte countOrd ered By: Lorraine Springer on 10-22-2023 Lymphocytes Auto (Unsp spec) [#/Vol] 1.91 10*3/uL 0.83-4.51 [facility] Basophil percentageOrdered B y: Lorraine Springer on 10-22-2023 Basophils/100 WBC (Bld) 0.6 % 0-1 [facility] Eosinophils/100 WBC (Bld) 4.5 % 0-5 [facility] Neutrophils (Bld) [#/Vol] 5.2 10*3/uL 2.0-7.7 [facility] Neutrophils/100 WBC (Bld) 62.0 % 47-70 [facility] WBC (Bld) [#/Vol] 8.3 10*3/uL 4.4-11.0 [facility] Blood erythrocytes count (nu mber/volume)Ordered By: Lorraine Springer on 10-22-2023 RBC (Bld) [#/Vol] 4.95 10*6/uL 4.2-5.4 [facility] Blood hemoglobin measurement (mass/volume)Ordered By: Lorraine Springer on 10-22-2023 Hemoglobin (Bld) [Mass/Vol] 14.4 g/dL 12.0-15.0 [facility] Blood lymphocytes/100 leukoc ytesOrdered By: Lorraine Springer on 10-22-2023 Lymphocytes/100 WBC (Bld) 23.0 % 19-41 [facility] Blood manual differential co mment interpretation (narrative result)Ordered By: Lorraine Springer on 10-22-2023 Manual differential comment Diego (Bld) [Interp] SCANNED [facility] Blood monocytes/100 leukocyt esOrdered By: Lorraine Springer on 10-22-2023 Monocytes/100 WBC (Bld) 9.5 % 0-10 [facility] Blood platelet mean volumeOr dered By: Lorraine Springer on 10-22-2023 Platelet mean volume (Bld) [Entitic vol] 9.9 fL 6.2-12.0 [facility] Determination of erythrocyte mean corpuscular volume (MCV)Ordered By: Lorraine Springer on 10-22-2023 MCV (RBC) [Entitic vol] 90.7 fL 81-99 [facility] Hematocrit Auto (Bld) [Volum e fraction]Ordered By: Lorraine Springer on 10-22-2023 Hematocrit (Bld) [Volume fraction] 44.9 % 37-47 [facility] Laboratory - Hematology and Cell countsOrdered By: Lorraine Springer on 10-22-2023 Erythrocyte distribution width (RBC) [Entitic vol] 46.6 fL 35.1-43.9 [facility] Erythrocyte distribution width (RBC) [Ratio] 14.0 % 11.6-14.6 [facility] Immature granulocytes/100 WBC (Bld) 0.400 % 0.0-0.9 [facility] Comment on above: IG% - Immature Granu locytes (promyelocytes, myelocytes and metamyelocytes) > 1% indicates that a LEFT SHIFT is Present. MCH (RBC) [Entitic mass] 29.1 pg 27.0-32.0 [facility] Nucleated RBC/100 WBC (Bld) [Ratio] 0 % 0-5 [facility] MCHC Auto (RBC) [Mass/Vol]Or dered By: Lorraine Springer on 10-22-2023 MCHC (RBC) [Mass/Vol] 32.1 g/dL 32-36 [facility] Platelets bldOrdered By: Moon Springer on 10-22-2023 Platelets (Bld) [#/Vol] 217 10*3/uL 150-450 [facility] Absolute lymphocyte countOrd ered By: Lorraine Springer on 09-17-2023 Lymphocytes Auto (Unsp spec) [#/Vol] 1.96 10*3/uL 0.83-4.51 [facility] Basophil percentageOrdered B y: Lorraine Springer on 09-17-2023 Basophils/100 WBC (Bld) 0.6 % 0-1 [facility] Eosinophils/100 WBC (Bld) 0.0 % 0-5 [facility] Neutrophils (Bld) [#/Vol] 4.6 10*3/uL 2.0-7.7 [facility] Neutrophils/100 WBC (Bld) 65.4 % 47-70 [facility] WBC (Bld) [#/Vol] 7.0 10*3/uL 4.4-11.0 [facility] Blood erythrocytes count (nu mber/volume)Ordered By: Lorraine Springer on 09-17-2023 RBC (Bld) [#/Vol] 4.75 10*6/uL 4.2-5.4 [facility] Blood hemoglobin measurement (mass/volume)Ordered By: Lorraine Springer on 09-17-2023 Hemoglobin (Bld) [Mass/Vol] 13.8 g/dL 12.0-15.0 [facility] Blood lymphocytes/100 leukoc ytesOrdered By: Lorraine Springer on 09-17-2023 Lymphocytes/100 WBC (Bld) 28.1 % 19-41 [facility] Blood monocytes/100 leukocyt esOrdered By: Lorraine Springer on 09-17-2023 Monocytes/100 WBC (Bld) 5.6 % 0-10 [facility] Blood platelet mean volumeOr dered By: Lorraine Springer on 09-17-2023 Platelet mean volume (Bld) [Entitic vol] 10.9 fL 6.2-12.0 [facility] Determination of erythrocyte mean corpuscular volume (MCV)Ordered By: Lorraine Springer on 09-17-2023 MCV (RBC) [Entitic vol] 92.4 fL 81-99 [facility] Hematocrit Auto (Bld) [Volum e fraction]Ordered By: Lorraine Springer on 09-17-2023 Hematocrit (Bld) [Volume fraction] 43.9 % 37-47 [facility] Laboratory - Hematology and Cell countsOrdered By: Lorraine Springer on 09-17-2023 Erythrocyte distribution width (RBC) [Entitic vol] 46.8 fL 35.1-43.9 [facility] Erythrocyte distribution width (RBC) [Ratio] 13.8 % 11.6-14.6 [facility] Immature granulocytes/100 WBC (Bld) 0.300 % 0.0-0.9 [facility] Comment on above: IG% - Immature Granu locytes (promyelocytes, myelocytes and metamyelocytes) > 1% indicates that a LEFT SHIFT is Present. MCH (RBC) [Entitic mass] 29.1 pg 27.0-32.0 [facility] Nucleated RBC/100 WBC (Bld) [Ratio] 0 % 0-5 [facility] MCHC Auto (RBC) [Mass/Vol]Or dered By: Lorraine Springer on 09-17-2023 MCHC (RBC) [Mass/Vol] 31.4 g/dL 32-36 [facility] Platelets bldOrdered By: Moon Springer on 09-17-2023 Platelets (Bld) [#/Vol] 210 10*3/uL 150-450 [facility] Absolute lymphocyte countOrd ered By: Lorraine Springer on 08-19-2023 Lymphocytes Auto (Unsp spec) [#/Vol] 2.06 10*3/uL 0.83-4.51 [facility] Basophil percentageOrdered B y: Lorraine Springer on 08-19-2023 Basophils/100 WBC (Bld) 0.4 % 0-1 [facility] Eosinophils/100 WBC (Bld) 3.3 % 0-5 [facility] Neutrophils (Bld) [#/Vol] 13.0 10*3/uL 2.0-7.7 [facility] Neutrophils/100 WBC (Bld) 79.2 % 47-70 [facility] WBC (Bld) [#/Vol] 16.5 10*3/uL 4.4-11.0 [facility] Blood erythrocytes count (nu mber/volume)Ordered By: Lorraine Springer on 08-19-2023 RBC (Bld) [#/Vol] 5.07 10*6/uL 4.2-5.4 [facility] Blood hemoglobin measurement (mass/volume)Ordered By: Lorraine Springer on 08-19-2023 Hemoglobin (Bld) [Mass/Vol] 14.7 g/dL 12.0-15.0 [facility] Blood lymphocytes/100 leukoc ytesOrdered By: Lorraine Springer on 08-19-2023 Lymphocytes/100 WBC (Bld) 12.5 % 19-41 [facility] Blood monocytes/100 leukocyt esOrdered By: Lorraine Springer on 08-19-2023 Monocytes/100 WBC (Bld) 3.3 % 0-10 [facility] Blood platelet mean volumeOr dered By: Lorraine Springer on 08-19-2023 Platelet mean volume (Bld) [Entitic vol] 11.3 fL 6.2-12.0 [facility] Determination of erythrocyte mean corpuscular volume (MCV)Ordered By: Lorraine Springer on 08-19-2023 MCV (RBC) [Entitic vol] 89.7 fL 81-99 [facility] Hematocrit Auto (Bld) [Volum e fraction]Ordered By: [facility] on 08-19-2023 Hematocrit (Bld) [Volume fraction] 45.5 % 37-47 [facility] Laboratory - Hematology and Cell countsOrdered By: Lorraine Springer on 08-19-2023 Erythrocyte distribution width (RBC) [Entitic vol] 42.5 fL 35.1-43.9 [facility] Erythrocyte distribution width (RBC) [Ratio] 13.1 % 11.6-14.6 [facility] Immature granulocytes/100 WBC (Bld) 1.300 % 0.0-0.9 [facility] Comment on above: IG% - Immature Granu locytes (promyelocytes, myelocytes and metamyelocytes) > 1% indicates that a LEFT SHIFT is Present. MCH (RBC) [Entitic mass] 29.0 pg 27.0-32.0 [facility] Nucleated RBC/100 WBC (Bld) [Ratio] 0 % 0-5 [facility] MCHC Auto (RBC) [Mass/Vol]Or dered By: Lorraine Springer on 08-19-2023 MCHC (RBC) [Mass/Vol] 32.3 g/dL 32-36 [facility] Platelets bldOrdered By: Moon Springer on 08-19-2023 Platelets (Bld) [#/Vol] 256 10*3/uL 150-450 [facility] Absolute lymphocyte countOrd ered By: Hesham Noguera on 08-16-2023 Lymphocytes Auto (Unsp spec) [#/Vol] 2.00 10*3/uL 0.83-4.51 [facility] Basophil percentageOrdered B y: Hesham Noguera on 08-16-2023 Basophil percentage 3.1 mg/dL 2.5-4.9 [facility] Basophils/100 WBC (Bld) 0.2 % 0-1 [facility] Chloride [Moles/Vol] 107 mmol/L 98-107 [facility] Eosinophils/100 WBC (Bld) 0.0 % 0-5 [facility] Glucose [Mass/Vol] 173 mg/dL 74-106 [facility] Comment on above: Fasting Glucose resu lt greater than or equal to 126 mg/dL suggests DIABETES MELLITUS per A.D.A. criteria. Neutrophils (Bld) [#/Vol] 12.8 10*3/uL 2.0-7.7 [facility] Neutrophils/100 WBC (Bld) 81.8 % 47-70 [facility] Potassium [Moles/Vol] 4.2 mmol/L 3.5-5.1 [facility] Sodium [Moles/Vol] 140 mmol/L 136-145 [facility] WBC (Bld) [#/Vol] 15.7 10*3/uL 4.4-11.0 [facility] Blood erythrocytes count (nu mber/volume)Ordered By: Hesham Noguera on 08-16-2023 RBC (Bld) [#/Vol] 4.49 10*6/uL 4.2-5.4 [facility] Blood hemoglobin measurement (mass/volume)Ordered By: Hesham Noguera on 08-16-2023 Hemoglobin (Bld) [Mass/Vol] 13.1 g/dL 12.0-15.0 [facility] Blood lymphocytes/100 leukoc ytesOrdered By: Hesham Noguera on 08-16-2023 Lymphocytes/100 WBC (Bld) 12.7 % 19-41 [facility] Blood monocytes/100 leukocyt esOrdered By: Hesham Noguera on 08-16-2023 Monocytes/100 WBC (Bld) 4.6 % 0-10 [facility] Blood platelet mean volumeOr dered By: Hesham Noguera on 08-16-2023 Platelet mean volume (Bld) [Entitic vol] 11.2 fL 6.2-12.0 [facility] Determination of erythrocyte mean corpuscular volume (MCV)Ordered By: Hesham Noguera on 08-16-2023 MCV (RBC) [Entitic vol] 92.4 fL 81-99 [facility] Glucose Glucometer (dC) [M ass/Vol]Ordered By: Hesham Noguera on 08-16-2023 Glucose [Mass/Vol] 206 mg/dL 74-106 [facility] Comment on above: MANAGEMENT OF PATIEN T CARE PER NURSING PROTOCOL Hematocrit Auto (Bld) [Volum e fraction]Ordered By: Hesham Noguera on 08-16-2023 Hematocrit (Bld) [Volume fraction] 41.5 % 37-47 [facility] Laboratory - Chemistry and C hemistry - challengeOrdered By: Hesham Noguera on 08-16-2023 CO2 [Moles/Vol] 24.0 mmol/L 21.0-32.0 [facility] Magnesium [Mass/Vol] 2.4 mg/dL 1.6-2.6 [facility] Urea nitrogen/Creatinine [Mass ratio] 31.3 mg/mg 10-20 [facility] Laboratory - Hematology and Cell countsOrdered By: Hesham Noguera on 08-16-2023 Erythrocyte distribution width (RBC) [Entitic vol] 46.0 fL 35.1-43.9 [facility] Erythrocyte distribution width (RBC) [Ratio] 13.5 % 11.6-14.6 [facility] Immature granulocytes/100 WBC (Bld) 0.700 % 0.0-0.9 [facility] Comment on above: IG% - Immature Granu locytes (promyelocytes, myelocytes and metamyelocytes) > 1% indicates that a LEFT SHIFT is Present. MCH (RBC) [Entitic mass] 29.2 pg 27.0-32.0 [facility] Nucleated RBC/100 WBC (Bld) [Ratio] 0 % 0-5 [facility] Auto (RBC) [Mass/Vol]Or dered By: Hesham Noguera on 08-16-2023 MCHC (RBC) [Mass/Vol] 31.6 g/dL 32-36 [facility] No Panel InformationOrdered By: Hesham Noguera on 08-16-2023 Estimated Creatinine Clearance Calc 89.62 ml/min [facility] Estimated GFR (MDRD) Amer 158 mL/min >60 [facility] Comment on above: GFR Calc Estimated GFR (MDRD) Non-Af Amer 131 mL/min >60 [facility] Comment on above: Non- GFR Calc Platelets bldOrdered By: Wes Noguera on 08-16-2023 Platelets (Bld) [#/Vol] 220 10*3/uL 150-450 [facility] Serum or plasma calcium lawrence urement (mass/volume)Ordered By: Hesham Noguera on 08-16-2023 Calcium [Mass/Vol] 8.9 mg/dL 8.5-10.1 [facility] Serum or plasma creatinine m easurement (mass/volume)Ordered By: Hesham Noguera on 08-16-2023 Creatinine [Mass/Vol] 0.51 mg/dL 0.55-1.02 [facility] Comment on above: The validity of the calculated GFR & GFRAA in patients over 70 years has not been determined. Clinical correlation is essential. Serum or plasma urea nitroge n measurement (mass/volume)Ordered By: Hesham Noguera on 08-16-2023 Urea nitrogen [Mass/Vol] 16 mg/dL 7-18 [facility] Thin prep Papanicolaou smear with manual screeningOrdered By: Hesham Noguera on 08-16-2023 Thin prep Papanicolaou smear with manual screening 9 5-15 [facility] Basophil percentageOrdered B y: Amy White on 08-15-2023 Bilirubin [Mass/Vol] 0.70 mg/dL 0.20-1.00 [facility] Comment on above: For patients on eltr ombopag therapy, use of Dimension Icard TBIL is not recommended. Protein [Mass/Vol] 7.5 g/dL 6.4-8.2 [facility] Laboratory - Chemistry and C hemistry - challengeOrdered By: Amy Moreno on 08-15-2023 ALP [Catalytic activity/Vol] 148 U/L 45-117 [facility] ALT [Catalytic activity/Vol] 75 U/L 13-56 [facility] Globulin (S) [Mass/Vol] 4.3 g/dL 2.2-4.2 [facility] Serum or plasma albumin lawrence urement (mass/volume)Ordered By: Amy Josh on 08-15-2023 Albumin [Mass/Vol] 3.2 g/dL 3.2-5.0 [facility] Serum or plasma albumin/glob ulin mass ratioOrdered By: [facility] Josh on 08-15-2023 Albumin/Globulin [Mass ratio] 0.7 {ratio} 0.9-2.4 [facility] Thin prep Papanicolaou smear with manual screeningOrdered By: [facility] Josh on 08-15-2023 Thin prep Papanicolaou smear with manual screening 32 U/L 15-37 [facility] Absolute lymphocyte countOrd ered By: Jey Quesada on 08-14-2023 Lymphocytes Auto (Unsp spec) [#/Vol] 1.62 10*3/uL 0.83-4.51 [facility] Basophil percentageOrdered B y: Jey Quesada on 08-14-2023 Basophils/100 WBC (Bld) 0.4 % 0-1 [facility] Bilirubin [Mass/Vol] 0.70 mg/dL 0.20-1.00 [facility] Comment on above: For patients on eltr ombopag therapy, use of Dimension Icard TBIL is not recommended. Chloride [Moles/Vol] 102 mmol/L 98-107 [facility] Eosinophils/100 WBC (Bld) 0.0 % 0-5 [facility] Glucose [Mass/Vol] 153 mg/dL 74-106 [facility] Comment on above: Fasting Glucose resu lt greater than or equal to 126 mg/dL suggests DIABETES MELLITUS per A.D.A. criteria. Neutrophils (Bld) [#/Vol] 10.5 10*3/uL 2.0-7.7 [facility] Neutrophils/100 WBC (Bld) 79.4 % 47-70 [facility] Potassium [Moles/Vol] 3.8 mmol/L 3.5-5.1 [facility] Protein [Mass/Vol] 8.0 g/dL 6.4-8.2 [facility] Sodium [Moles/Vol] 137 mmol/L 136-145 [facility] WBC (Bld) [#/Vol] 13.2 10*3/uL 4.4-11.0 [facility] Blood erythrocytes count (nu mber/volume)Ordered By: Jey Quesada on 08-14-2023 RBC (Bld) [#/Vol] 4.85 10*6/uL 4.2-5.4 [facility] Blood hemoglobin measurement (mass/volume)Ordered By: Jey Quesada on 08-14-2023 Hemoglobin (Bld) [Mass/Vol] 14.0 g/dL 12.0-15.0 [facility] Blood lymphocytes/100 leukoc ytesOrdered By: Jey Quesada on 08-14-2023 Lymphocytes/100 WBC (Bld) 12.3 % 19-41 [facility] Blood monocytes/100 leukocyt esOrdered By: Jey Quesada on 08-14-2023 Monocytes/100 WBC (Bld) 7.5 % 0-10 [facility] Blood platelet mean volumeOr dered By: Jey Quesada on 08-14-2023 Platelet mean volume (Bld) [Entitic vol] 10.7 fL 6.2-12.0 [facility] Determination of erythrocyte mean corpuscular volume (MCV)Ordered By: Jey Quesada on 08-14-2023 MCV (RBC) [Entitic vol] 90.7 fL 81-99 [facility] Hematocrit Auto (Bld) [Volum e fraction]Ordered By: Jey Quesada on 08-14-2023 Hematocrit (Bld) [Volume fraction] 44.0 % 37-47 [facility] Laboratory - Chemistry and C hemistry - challengeOrdered By: Jey Quesada on 08-14-2023 ALP [Catalytic activity/Vol] 150 U/L 45-117 [facility] ALT [Catalytic activity/Vol] 72 U/L 13-56 [facility] CO2 [Moles/Vol] 26.0 mmol/L 21.0-32.0 [facility] Globulin (S) [Mass/Vol] 4.2 g/dL 2.2-4.2 [facility] Natriuretic peptide B (Bld) [Mass/Vol] 2.9 pg/mL 0-100 [facility] Urea nitrogen/Creatinine [Mass ratio] 22.2 mg/mg 10-20 [facility] Laboratory - Hematology and Cell countsOrdered By: Jey Quesada on 08-14-2023 Erythrocyte distribution width (RBC) [Entitic vol] 44.6 fL 35.1-43.9 [facility] Erythrocyte distribution width (RBC) [Ratio] 13.4 % 11.6-14.6 [facility] Immature granulocytes/100 WBC (Bld) 0.400 % 0.0-0.9 [facility] Comment on above: IG% - Immature Granu locytes (promyelocytes, myelocytes and metamyelocytes) > 1% indicates that a LEFT SHIFT is Present. MCH (RBC) [Entitic mass] 28.9 pg 27.0-32.0 [facility] Nucleated RBC/100 WBC (Bld) [Ratio] 0 % 0-5 [facility] MCHC Auto (RBC) [Mass/Vol]Or dered By: Jey Quesada on 08-14-2023 MCHC (RBC) [Mass/Vol] 31.8 g/dL 32-36 [facility] No Panel InformationOrdered By: Jey Quesada on 08-14-2023 Estimated Creatinine Clearance Calc 67.22 ml/min [facility] Estimated GFR (MDRD) Amer 114 mL/min >60 [facility] Comment on above: GFR Calc Estimated GFR (MDRD) Non-Af Amer 94 mL/min >60 [facility] Comment on above: Non- GFR Calc Troponin I High Sensitivity < 3 pg/mL 3.0-54.0 [facility] Comment on above: Please Note: New Janeth t Units and Gender Specific Reference Ranges. For more information see Policy Stat Procedure Icard High Sensitivity Troponin (TNIH) and attachments. Platelets bldOrdered By: Trevor Quesada on 08-14-2023 Platelets (Bld) [#/Vol] 182 10*3/uL 150-450 [facility] Respiratory pathogens DNA an d RNA panel LUIS M+probe (Resp)Ordered By: Amy Moreno on 08-14-2023 Respiratory Panel (PCR) Rhinovirus [facility] Serum or plasma albumin lawrence urement (mass/volume)Ordered By: Jey Quesada on 08-14-2023 Albumin [Mass/Vol] 3.8 g/dL 3.2-5.0 [facility] Serum or plasma albumin/glob ulin mass ratioOrdered By: Jey Quesada on 08-14-2023 Albumin/Globulin [Mass ratio] 0.9 {ratio} 0.9-2.4 [facility] Serum or plasma calcium lawrence urement (mass/volume)Ordered By: Jey Quesada on 08-14-2023 Calcium [Mass/Vol] 9.2 mg/dL 8.5-10.1 [facility] Serum or plasma creatinine m easurement (mass/volume)Ordered By: Jey Quesada on 08-14-2023 Creatinine [Mass/Vol] 0.68 mg/dL 0.55-1.02 [facility] Comment on above: The validity of the calculated GFR & GFRAA in patients over 70 years has not been determined. Clinical correlation is essential. Serum or plasma urea nitroge n measurement (mass/volume)Ordered By: Jey Quesada on 08-14-2023 Urea nitrogen [Mass/Vol] 15 mg/dL 7-18 [facility] Serum procalcitonin measurem entOrdered By: Amy Moreno on 08-14-2023 Procalcitonin [Mass/Vol] 0.12 ng/mL 0.00-0.09 [facility] Comment on above: A procalcitonin (PCT ) level above 2.0 ng/mL on the first day of ICU admission is associated with a high risk for progression to severe sepsis and/or septic shock. A PCT level below 0.5 ng/mL on the first day of ICU admission is associated with a low risk for progression to severe and/or septic shock. Note: Concentrations <0.5 ng/mL do not exclude an infection on account of localized infections (without systemic signs) which can be associated with such low concentrations, or a systemic infection in its initial stages (<6 hours). Furthermore, increased procalcitonin can occur without infection. PCT concentrations between 0.5 and 2.0 ng/mL should be interpreted taking into account the patient's history. It is recommended to retest PCT within 6-24 hours if any concentrations <2 ng/mL are obtained. Thin prep Papanicolaou smear with manual screeningOrdered By: Jey Quesada on 08-14-2023 Thin prep Papanicolaou smear with manual screening 50 U/L 15-37 [facility] Thin prep Papanicolaou smear with manual screening 9 5-15 [facility] Absolute lymphocyte countOrd ered By: Lorraine Springer on 07-17-2023 Lymphocytes Auto (Unsp spec) [#/Vol] 1.66 10*3/uL 0.83-4.51 [facility] Basophil percentageOrdered B y: Lorraine Springer on 07-17-2023 Basophils/100 WBC (Bld) 0.4 % 0-1 [facility] Eosinophils/100 WBC (Bld) 0.3 % 0-5 [facility] Neutrophils (Bld) [#/Vol] 5.9 10*3/uL 2.0-7.7 [facility] Neutrophils/100 WBC (Bld) 73.4 % 47-70 [facility] WBC (Bld) [#/Vol] 8.0 10*3/uL 4.4-11.0 [facility] Blood erythrocytes count (nu mber/volume)Ordered By: Lorraine Springer on 07-17-2023 RBC (Bld) [#/Vol] 4.53 10*6/uL 4.2-5.4 [facility] Blood hemoglobin measurement (mass/volume)Ordered By: Lorraine Springer on 07-17-2023 Hemoglobin (Bld) [Mass/Vol] 13.3 g/dL 12.0-15.0 [facility] Blood lymphocytes/100 leukoc ytesOrdered By: Lorraine Springer on 07-17-2023 Lymphocytes/100 WBC (Bld) 20.8 % 19-41 [facility] Blood monocytes/100 leukocyt esOrdered By: Lorraine Springer on 07-17-2023 Monocytes/100 WBC (Bld) 5.0 % 0-10 [facility] Blood platelet mean volumeOr dered By: Lorraine Springer on 07-17-2023 Platelet mean volume (Bld) [Entitic vol] 9.5 fL 6.2-12.0 [facility] Determination of erythrocyte mean corpuscular volume (MCV)Ordered By: Lorraine Springer on 07-17-2023 MCV (RBC) [Entitic vol] 92.1 fL 81-99 [facility] Hematocrit Auto (Bld) [Volum e fraction]Ordered By: Lorraine Springer on 07-17-2023 Hematocrit (Bld) [Volume fraction] 41.7 % 37-47 [facility] Laboratory - Hematology and Cell countsOrdered By: Lorraine Springer on 07-17-2023 Erythrocyte distribution width (RBC) [Entitic vol] 45.3 fL 35.1-43.9 [facility] Erythrocyte distribution width (RBC) [Ratio] 13.3 % 11.6-14.6 [facility] Immature granulocytes/100 WBC (Bld) 0.100 % 0.0-0.9 [facility] Comment on above: IG% - Immature Granu locytes (promyelocytes, myelocytes and metamyelocytes) > 1% indicates that a LEFT SHIFT is Present. MCH (RBC) [Entitic mass] 29.4 pg 27.0-32.0 [facility] Nucleated RBC/100 WBC (Bld) [Ratio] 0 % 0-5 [facility] MCHC Auto (RBC) [Mass/Vol]Or dered By: Lorraine Springer on 07-17-2023 MCHC (RBC) [Mass/Vol] 31.9 g/dL 32-36 [facility] Platelets bldOrdered By: Moon Springer on 07-17-2023 Platelets (Bld) [#/Vol] 190 10*3/uL 150-450 [facility] Absolute lymphocyte countOrd ered By: Lorraine Springer on 06-18-2023 Lymphocytes Auto (Unsp spec) [#/Vol] 1.70 10*3/uL 0.83-4.51 [facility] Basophil percentageOrdered B y: Lorraine Springer on 06-18-2023 Basophils/100 WBC (Bld) 0.4 % 0-1 [facility] Eosinophils/100 WBC (Bld) 0.4 % 0-5 [facility] Neutrophils (Bld) [#/Vol] 5.3 10*3/uL 2.0-7.7 [facility] Neutrophils/100 WBC (Bld) 71.4 % 47-70 [facility] WBC (Bld) [#/Vol] 7.4 10*3/uL 4.4-11.0 [facility] Blood erythrocytes count (nu mber/volume)Ordered By: Lorraine Springer on 06-18-2023 RBC (Bld) [#/Vol] 4.66 10*6/uL 4.2-5.4 [facility] Blood hemoglobin measurement (mass/volume)Ordered By: Lorraine Springer on 06-18-2023 Hemoglobin (Bld) [Mass/Vol] 13.9 g/dL 12.0-15.0 [facility] Blood lymphocytes/100 leukoc ytesOrdered By: Lorraine Springer on 06-18-2023 Lymphocytes/100 WBC (Bld) 23.1 % 19-41 [facility] Blood monocytes/100 leukocyt esOrdered By: Lorraine Springer on 06-18-2023 Monocytes/100 WBC (Bld) 4.4 % 0-10 [facility] Blood platelet mean volumeOr dered By: Lorraine Springer on 06-18-2023 Platelet mean volume (Bld) [Entitic vol] 11.9 fL 6.2-12.0 [facility] Determination of erythrocyte mean corpuscular volume (MCV)Ordered By: Lorraine Springer on 06-18-2023 MCV (RBC) [Entitic vol] 92.5 fL 81-99 [facility] Hematocrit Auto (Bld) [Volum e fraction]Ordered By: Lorraine Springer on 06-18-2023 Hematocrit (Bld) [Volume fraction] 43.1 % 37-47 [facility] Laboratory - Hematology and Cell countsOrdered By: Lorraine Springer on 06-18-2023 Erythrocyte distribution width (RBC) [Entitic vol] 46.5 fL 35.1-43.9 [facility] Erythrocyte distribution width (RBC) [Ratio] 13.6 % 11.6-14.6 [facility] Immature granulocytes/100 WBC (Bld) 0.300 % 0.0-0.9 [facility] Comment on above: IG% - Immature Granu locytes (promyelocytes, myelocytes and metamyelocytes) > 1% indicates that a LEFT SHIFT is Present. MCH (RBC) [Entitic mass] 29.8 pg 27.0-32.0 [facility] Nucleated RBC/100 WBC (Bld) [Ratio] 0 % 0-5 [facility] MCHC Auto (RBC) [Mass/Vol]Or dered By: Lorraine Springer on 06-18-2023 MCHC (RBC) [Mass/Vol] 32.3 g/dL 32-36 [facility] Platelets bldOrdered By: Moon Springer on 06-18-2023 Platelets (Bld) [#/Vol] 149 10*3/uL 150-450 [facility] NM CARDIAC PERF STRESS/PHARM on 05-26-2023 [facility] Absolute lymphocyte countOrd ered By: Lorraine Springer on 05-20-2023 Lymphocytes Auto (Unsp spec) [#/Vol] 2.71 10*3/uL 0.83-4.51 [facility] Basophil percentageOrdered B y: Lorraine Springer on 05-20-2023 Basophils/100 WBC (Bld) 0.4 % 0-1 [facility] Eosinophils/100 WBC (Bld) 0.3 % 0-5 [facility] Neutrophils (Bld) [#/Vol] 5.6 10*3/uL 2.0-7.7 [facility] Neutrophils/100 WBC (Bld) 60.5 % 47-70 [facility] WBC (Bld) [#/Vol] 9.2 10*3/uL 4.4-11.0 [facility] Blood erythrocytes count (nu mber/volume)Ordered By: Lorraine Springer on 05-20-2023 RBC (Bld) [#/Vol] 4.79 10*6/uL 4.2-5.4 [facility] Blood hemoglobin measurement (mass/volume)Ordered By: Lorraine Springer on 05-20-2023 Hemoglobin (Bld) [Mass/Vol] 13.9 g/dL 12.0-15.0 [facility] Blood lymphocytes/100 leukoc ytesOrdered By: Lorraine Springer on 05-20-2023 Lymphocytes/100 WBC (Bld) 29.4 % 19-41 [facility] Blood manual differential co mment interpretation (narrative result)Ordered By: Lorraine Springer on 05-20-2023 Manual differential comment [place] (Bld) [Interp] SCANNED [facility] Blood monocytes/100 leukocyt esOrdered By: Lorraine Springer on 05-20-2023 Monocytes/100 WBC (Bld) 9.0 % 0-10 [facility] Blood platelet mean volumeOr dered By: Lorraine Springer on 05-20-2023 Platelet mean volume (Bld) [Entitic vol] 9.9 fL 6.2-12.0 [facility] Determination of erythrocyte mean corpuscular volume (MCV)Ordered By: Lorraine Springer on 05-20-2023 MCV (RBC) [Entitic vol] 92.9 fL 81-99 [facility] Hematocrit Auto (Bld) [Volum e fraction]Ordered By: Lorraine Springer on 05-20-2023 Hematocrit (Bld) [Volume fraction] 44.5 % 37-47 [facility] Laboratory - Hematology and Cell countsOrdered By: Lorraine Springer on 05-20-2023 Erythrocyte distribution width (RBC) [Entitic vol] 46.7 fL 35.1-43.9 [facility] Erythrocyte distribution width (RBC) [Ratio] 13.7 % 11.6-14.6 [facility] Immature granulocytes/100 WBC (Bld) 0.400 % 0.0-0.9 [facility] Comment on above: IG% - Immature Granu locytes (promyelocytes, myelocytes and metamyelocytes) > 1% indicates that a LEFT SHIFT is Present. MCH (RBC) [Entitic mass] 29.0 pg 27.0-32.0 [facility] Nucleated RBC/100 WBC (Bld) [Ratio] 0 % 0-5 [facility] MCHC Auto (RBC) [Mass/Vol]Or dered By: Lorraine Springer on 05-20-2023 MCHC (RBC) [Mass/Vol] 31.2 g/dL 32-36 [facility] Platelets bldOrdered By: Moon Springer on 05-20-2023 Platelets (Bld) [#/Vol] 207 10*3/uL 150-450 [facility] Absolute lymphocyte countOrd ered By: Lorraine Springer on 05-05-2023 Lymphocytes Auto (Unsp spec) [#/Vol] 2.52 10*3/uL 0.83-4.51 [facility] Basophil percentageOrdered B y: Lorraine Springer on 05-05-2023 Basophils/100 WBC (Bld) 0.6 % 0-1 [facility] Eosinophils/100 WBC (Bld) 0.2 % 0-5 [facility] Neutrophils (Bld) [#/Vol] 5.3 10*3/uL 2.0-7.7 [facility] Neutrophils/100 WBC (Bld) 61.7 % 47-70 [facility] WBC (Bld) [#/Vol] 8.6 10*3/uL 4.4-11.0 [facility] Blood erythrocytes count (nu mber/volume)Ordered By: Lorraine Springer on 05-05-2023 RBC (Bld) [#/Vol] 5.01 10*6/uL 4.2-5.4 [facility] Blood hemoglobin measurement (mass/volume)Ordered By: Lorraine Springer on 05-05-2023 Hemoglobin (Bld) [Mass/Vol] 14.8 g/dL 12.0-15.0 [facility] Blood lymphocytes/100 leukoc ytesOrdered By: Lorraine Springer on 05-05-2023 Lymphocytes/100 WBC (Bld) 29.3 % 19-41 [facility] Blood monocytes/100 leukocyt esOrdered By: Lorraine Springer on 05-05-2023 Monocytes/100 WBC (Bld) 7.9 % 0-10 [facility] Blood platelet adequacy dete ction by light microscopyOrdered By: Lorraine Springer on 05-05-2023 Platelets LM Ql (Bld) ADEQUATE ADEQ [facility] Blood platelet mean volumeOr dered By: Lorraine Springer on 05-05-2023 Platelet mean volume (Bld) [Entitic vol] 10.6 fL 6.2-12.0 [facility] Determination of erythrocyte mean corpuscular volume (MCV)Ordered By: Lorraine Springer on 05-05-2023 MCV (RBC) [Entitic vol] 91.8 fL 81-99 [facility] Hematocrit Auto (Bld) [Volum e fraction]Ordered By: Lorraine Springer on 05-05-2023 Hematocrit (Bld) [Volume fraction] 46.0 % 37-47 [facility] Laboratory - Hematology and Cell countsOrdered By: Lorraine Springer on 05-05-2023 Anisocytosis Ql (Bld) RARE [facility] Erythrocyte distribution width (RBC) [Entitic vol] 45.9 fL 35.1-43.9 [facility] Erythrocyte distribution width (RBC) [Ratio] 13.7 % 11.6-14.6 [facility] Immature granulocytes/100 WBC (Bld) 0.300 % 0.0-0.9 [facility] Comment on above: IG% - Immature Granu locytes (promyelocytes, myelocytes and metamyelocytes) > 1% indicates that a LEFT SHIFT is Present. MCH (RBC) [Entitic mass] 29.5 pg 27.0-32.0 [facility] Nucleated RBC/100 WBC (Bld) [Ratio] 0 % 0-5 [facility] MCHC Auto (RBC) [Mass/Vol]Or dered By: Lorraine Springer on 05-05-2023 MCHC (RBC) [Mass/Vol] 32.2 g/dL 32-36 [facility] No Panel InformationOrdered By: Lorraine Springer on 05-05-2023 Atypical Lymphocytes 1+ % [facility] Platelets bldOrdered By: Moon Springer on 05-05-2023 Platelets (Bld) [#/Vol] 222 10*3/uL 150-450 [facility] RBC morphologyOrdered By: Anastacia Springer on 05-05-2023 RBC morphology finding Nom (Bld) N CHROM NORMAL NORM C&C [facility] Absolute lymphocyte countOrd ered By: Lorraine Springer on 03-17-2023 Lymphocytes Auto (Unsp spec) [#/Vol] 2.43 10*3/uL 0.83-4.51 [facility] Basophil percentageOrdered B y: Lorraine Springer on 03-17-2023 Basophils/100 WBC (Bld) 0.4 % 0-1 [facility] Eosinophils/100 WBC (Bld) 0.2 % 0-5 [facility] Neutrophils (Bld) [#/Vol] 7.8 10*3/uL 2.0-7.7 [facility] Neutrophils/100 WBC (Bld) 71.4 % 47-70 [facility] WBC (Bld) [#/Vol] 10.8 10*3/uL 4.4-11.0 [facility] Blood erythrocytes count (nu mber/volume)Ordered By: Lorraine Springer on 03-17-2023 RBC (Bld) [#/Vol] 4.78 10*6/uL 4.2-5.4 [facility] Blood hemoglobin measurement (mass/volume)Ordered By: Lorraine Springer on 03-17-2023 Hemoglobin (Bld) [Mass/Vol] 14.2 g/dL 12.0-15.0 [facility] Blood lymphocytes/100 leukoc ytesOrdered By: Lorraine Springer on 03-17-2023 Lymphocytes/100 WBC (Bld) 22.4 % 19-41 [facility] Blood monocytes/100 leukocyt esOrdered By: Lorraine Springer on 03-17-2023 Monocytes/100 WBC (Bld) 5.3 % 0-10 [facility] Blood platelet mean volumeOr dered By: Lorraine Springer on 03-17-2023 Platelet mean volume (Bld) [Entitic vol] 9.5 fL 6.2-12.0 [facility] Determination of erythrocyte mean corpuscular volume (MCV)Ordered By: Lorraine Springer on 03-17-2023 MCV (RBC) [Entitic vol] 90.2 fL 81-99 [facility] Hematocrit Auto (Bld) [Volum e fraction]Ordered By: Lorraine Springer on 03-17-2023 Hematocrit (Bld) [Volume fraction] 43.1 % 37-47 [facility] Laboratory - Hematology and Cell countsOrdered By: Lorraine Springer on 03-17-2023 Erythrocyte distribution width (RBC) [Entitic vol] 44.8 fL 35.1-43.9 [facility] Erythrocyte distribution width (RBC) [Ratio] 13.6 % 11.6-14.6 [facility] Immature granulocytes/100 WBC (Bld) 0.300 % 0.0-0.9 [facility] Comment on above: IG% - Immature Granu locytes (promyelocytes, myelocytes and metamyelocytes) > 1% indicates that a LEFT SHIFT is Present. MCH (RBC) [Entitic mass] 29.7 pg 27.0-32.0 [facility] Nucleated RBC/100 WBC (Bld) [Ratio] 0 % 0-5 [facility] MCHC Auto (RBC) [Mass/Vol]Or dered By: Lorraine Springer on 03-17-2023 MCHC (RBC) [Mass/Vol] 32.9 g/dL 32-36 [facility] Platelets bldOrdered By: Moon Springer on 03-17-2023 Platelets (Bld) [#/Vol] 201 10*3/uL 150-450 [facility] Absolute lymphocyte countOrd ered By: Dr. Springer on 02-17-2023 Lymphocytes Auto (Unsp spec) [#/Vol] 2.63 10*3/uL 0.83-4.51 [facility] Basophil percentageOrdered B y: Dr. Springer on 02-17-2023 Basophils/100 WBC (Bld) 0.5 % 0-1 [facility] Eosinophils/100 WBC (Bld) 0.4 % 0-5 [facility] Neutrophils (Bld) [#/Vol] 6.5 10*3/uL 2.0-7.7 [facility] Neutrophils/100 WBC (Bld) 65.4 % 47-70 [facility] WBC (Bld) [#/Vol] 10.0 10*3/uL 4.4-11.0 [facility] Blood erythrocytes count (nu mber/volume)Ordered By: Dr. Springer on 02-17-2023 RBC (Bld) [#/Vol] 5.05 10*6/uL 4.2-5.4 [facility] Blood hemoglobin measurement (mass/volume)Ordered By: Dr. Springer on 02-17-2023 Hemoglobin (Bld) [Mass/Vol] 14.8 g/dL 12.0-15.0 [facility] Blood lymphocytes/100 leukoc ytesOrdered By: Dr. Springer on 02-17-2023 Lymphocytes/100 WBC (Bld) 26.4 % 19-41 [facility] Blood monocytes/100 leukocyt esOrdered By: Dr. Springer on 02-17-2023 Monocytes/100 WBC (Bld) 7.0 % 0-10 [facility] Blood platelet mean volumeOr dered By: Dr. Springer on 02-17-2023 Platelet mean volume (Bld) [Entitic vol] 10.8 fL 6.2-12.0 [facility] Determination of erythrocyte mean corpuscular volume (MCV)Ordered By: Dr. Springer on 02-17-2023 MCV (RBC) [Entitic vol] 90.7 fL 81-99 [facility] Hematocrit Auto (Bld) [Volum e fraction]Ordered By: Dr. Springer on 02-17-2023 Hematocrit (Bld) [Volume fraction] 45.8 % 37-47 [facility] Laboratory - Hematology and Cell countsOrdered By: Dr. Springer on 02-17-2023 Erythrocyte distribution width (RBC) [Entitic vol] 45.1 fL 35.1-43.9 [facility] Erythrocyte distribution width (RBC) [Ratio] 13.6 % 11.6-14.6 [facility] Immature granulocytes/100 WBC (Bld) 0.300 % 0.0-0.9 [facility] Comment on above: IG% - Immature Granu locytes (promyelocytes, myelocytes and metamyelocytes) > 1% indicates that a LEFT SHIFT is Present. MCH (RBC) [Entitic mass] 29.3 pg 27.0-32.0 [facility] Nucleated RBC/100 WBC (Bld) [Ratio] 0 % 0-5 [facility] MCHC Auto (RBC) [Mass/Vol]Or dered By: Dr. Springer on 02-17-2023 MCHC (RBC) [Mass/Vol] 32.3 g/dL 32-36 [facility] Platelets bldOrdered By: Dr. Springer on 02-17-2023 Platelets (Bld) [#/Vol] 192 10*3/uL 150-450 [facility] Absolute lymphocyte countOrd ered By: Dr. Springer on 01-15-2023 Lymphocytes Auto (Unsp spec) [#/Vol] 1.99 10*3/uL 0.83-4.51 [facility] Basophil percentageOrdered B y: Dr. Springer on 01-15-2023 Basophils/100 WBC (Bld) 0.7 % 0-1 [facility] Eosinophils/100 WBC (Bld) 0.4 % 0-5 [facility] Neutrophils (Bld) [#/Vol] 4.6 10*3/uL 2.0-7.7 [facility] Neutrophils/100 WBC (Bld) 64.5 % 47-70 [facility] WBC (Bld) [#/Vol] 7.2 10*3/uL 4.4-11.0 [facility] Blood erythrocytes count (nu mber/volume)Ordered By: Dr. Springer on 01-15-2023 RBC (Bld) [#/Vol] 5.12 10*6/uL 4.2-5.4 [facility] Blood hemoglobin measurement (mass/volume)Ordered By: Dr. Springer on 01-15-2023 Hemoglobin (Bld) [Mass/Vol] 14.9 g/dL 12.0-15.0 [facility] Blood lymphocytes/100 leukoc ytesOrdered By: Dr. Springer on 01-15-2023 Lymphocytes/100 WBC (Bld) 27.7 % 19-41 [facility] Blood monocytes/100 leukocyt esOrdered By: Dr. Springer on 01-15-2023 Monocytes/100 WBC (Bld) 6.4 % 0-10 [facility] Blood platelet mean volumeOr dered By: Dr. Springer on 01-15-2023 Platelet mean volume (Bld) [Entitic vol] 12.3 fL 6.2-12.0 [facility] Determination of erythrocyte mean corpuscular volume (MCV)Ordered By: Dr. Springer on 01-15-2023 MCV (RBC) [Entitic vol] 91.6 fL 81-99 [facility] Hematocrit Auto (Bld) [Volum e fraction]Ordered By: Dr. Springer on 01-15-2023 Hematocrit (Bld) [Volume fraction] 46.9 % 37-47 [facility] Laboratory - Hematology and Cell countsOrdered By: Dr. Springer on 01-15-2023 Erythrocyte distribution width (RBC) [Entitic vol] 46.8 fL 35.1-43.9 [facility] Erythrocyte distribution width (RBC) [Ratio] 13.9 % 11.6-14.6 [facility] Immature granulocytes/100 WBC (Bld) 0.300 % 0.0-0.9 [facility] Comment on above: IG% - Immature Granu locytes (promyelocytes, myelocytes and metamyelocytes) > 1% indicates that a LEFT SHIFT is Present. MCH (RBC) [Entitic mass] 29.1 pg 27.0-32.0 [facility] Nucleated RBC/100 WBC (Bld) [Ratio] 0 % 0-5 [facility] MCHC Auto (RBC) [Mass/Vol]Or dered By: Dr. Springer on 01-15-2023 MCHC (RBC) [Mass/Vol] 31.8 g/dL 32-36 [facility] Platelets bldOrdered By: Dr. Spirnger on 01-15-2023 Platelets (Bld) [#/Vol] 168 10*3/uL 150-450 [facility] Absolute lymphocyte countOrd ered By: Dr. Springer on 12-16-2022 Lymphocytes Auto (Unsp spec) [#/Vol] 2.57 10*3/uL 0.83-4.51 [facility] Basophil percentageOrdered B y: Dr. Springer on 12-16-2022 Basophils/100 WBC (Bld) 0.5 % 0-1 [facility] Eosinophils/100 WBC (Bld) 0.3 % 0-5 [facility] Neutrophils (Bld) [#/Vol] 4.5 10*3/uL 2.0-7.7 [facility] Neutrophils/100 WBC (Bld) 57.5 % 47-70 [facility] WBC (Bld) [#/Vol] 7.8 10*3/uL 4.4-11.0 [facility] Blood erythrocytes count (nu mber/volume)Ordered By: Dr. Springer on 12-16-2022 RBC (Bld) [#/Vol] 4.75 10*6/uL 4.2-5.4 [facility] Blood hemoglobin measurement (mass/volume)Ordered By: Dr. Springer on 12-16-2022 Hemoglobin (Bld) [Mass/Vol] 13.9 g/dL 12.0-15.0 [facility] Blood lymphocytes/100 leukoc ytesOrdered By: Dr. Springer on 12-16-2022 Lymphocytes/100 WBC (Bld) 33.2 % 19-41 [facility] Blood monocytes/100 leukocyt esOrdered By: Dr. Springer on 12-16-2022 Monocytes/100 WBC (Bld) 8.1 % 0-10 [facility] Blood platelet mean volumeOr dered By: Dr. Springer on 12-16-2022 Platelet mean volume (Bld) [Entitic vol] 11.0 fL 6.2-12.0 [facility] Determination of erythrocyte mean corpuscular volume (MCV)Ordered By: Dr. Springer on 12-16-2022 MCV (RBC) [Entitic vol] 92.8 fL 81-99 [facility] Hematocrit Auto (Bld) [Volum e fraction]Ordered By: Dr. Springer on 12-16-2022 Hematocrit (Bld) [Volume fraction] 44.1 % 37-47 [facility] Laboratory - Hematology and Cell countsOrdered By: Dr. Springer on 12-16-2022 Erythrocyte distribution width (RBC) [Entitic vol] 47.1 fL 35.1-43.9 [facility] Erythrocyte distribution width (RBC) [Ratio] 13.9 % 11.6-14.6 [facility] Immature granulocytes/100 WBC (Bld) 0.400 % 0.0-0.9 [facility] Comment on above: IG% - Immature Granu locytes (promyelocytes, myelocytes and metamyelocytes) > 1% indicates that a LEFT SHIFT is Present. MCH (RBC) [Entitic mass] 29.3 pg 27.0-32.0 [facility] Nucleated RBC/100 WBC (Bld) [Ratio] 0 % 0-5 [facility] MCHC Auto (RBC) [Mass/Vol]Or dered By: Dr. Springer on 12-16-2022 MCHC (RBC) [Mass/Vol] 31.5 g/dL 32-36 [facility] Platelets bldOrdered By: Dr. Springer on 12-16-2022 Platelets (Bld) [#/Vol] 193 10*3/uL 150-450 [facility] Absolute lymphocyte countOrd ered By: Dr. Springer on 11-19-2022 Lymphocytes Auto (Unsp spec) [#/Vol] 2.45 10*3/uL 0.83-4.51 [facility] Basophil percentageOrdered B y: Dr. Springer on 11-19-2022 Basophils/100 WBC (Bld) 0.6 % 0-1 [facility] Eosinophils/100 WBC (Bld) 0.2 % 0-5 [facility] Neutrophils (Bld) [#/Vol] 5.0 10*3/uL 2.0-7.7 [facility] Neutrophils/100 WBC (Bld) 61.5 % 47-70 [facility] WBC (Bld) [#/Vol] 8.2 10*3/uL 4.4-11.0 [facility] Blood erythrocytes count (nu mber/volume)Ordered By: Dr. Springer on 11-19-2022 RBC (Bld) [#/Vol] 4.95 10*6/uL 4.2-5.4 [facility] Blood hemoglobin measurement (mass/volume)Ordered By: Dr. Springer on 11-19-2022 Hemoglobin (Bld) [Mass/Vol] 14.4 g/dL 12.0-15.0 [facility] Blood lymphocytes/100 leukoc ytesOrdered By: Dr. Springer on 11-19-2022 Lymphocytes/100 WBC (Bld) 30.1 % 19-41 [facility] Blood monocytes/100 leukocyt esOrdered By: Dr. Springer on 11-19-2022 Monocytes/100 WBC (Bld) 7.4 % 0-10 [facility] Blood platelet mean volumeOr dered By: Dr. Springer on 11-19-2022 Platelet mean volume (Bld) [Entitic vol] 9.8 fL 6.2-12.0 [facility] Determination of erythrocyte mean corpuscular volume (MCV)Ordered By: Dr. pSringer on 11-19-2022 MCV (RBC) [Entitic vol] 91.9 fL 81-99 [facility] Hematocrit Auto (Bld) [Volum e fraction]Ordered By: Dr. Springer on 11-19-2022 Hematocrit (Bld) [Volume fraction] 45.5 % 37-47 [facility] Laboratory - Hematology and Cell countsOrdered By: Dr. Springer on 11-19-2022 Erythrocyte distribution width (RBC) [Entitic vol] 45.9 fL 35.1-43.9 [facility] Erythrocyte distribution width (RBC) [Ratio] 13.7 % 11.6-14.6 [facility] Immature granulocytes/100 WBC (Bld) 0.200 % 0.0-0.9 [facility] Comment on above: IG% - Immature Granu locytes (promyelocytes, myelocytes and metamyelocytes) > 1% indicates that a LEFT SHIFT is Present. MCH (RBC) [Entitic mass] 29.1 pg 27.0-32.0 [facility] Nucleated RBC/100 WBC (Bld) [Ratio] 0 % 0-5 [facility] MCHC Auto (RBC) [Mass/Vol]Or dered By: Dr. Springer on 11-19-2022 MCHC (RBC) [Mass/Vol] 31.6 g/dL 32-36 [facility] Platelets bldOrdered By: Dr. Springer on 11-19-2022 Platelets (Bld) [#/Vol] 198 10*3/uL 150-450 [facility] Absolute lymphocyte countOrd ered By: Dr. Springer on 10-17-2022 Lymphocytes Auto (Unsp spec) [#/Vol] 2.70 10*3/uL 0.83-4.51 [facility] Basophil percentageOrdered B y: Dr. Springer on 10-17-2022 Basophils/100 WBC (Bld) 0.7 % 0-1 [facility] Eosinophils/100 WBC (Bld) 0.2 % 0-5 [facility] Neutrophils (Bld) [#/Vol] 5.4 10*3/uL 2.0-7.7 [facility] Neutrophils/100 WBC (Bld) 60.7 % 47-70 [facility] WBC (Bld) [#/Vol] 8.8 10*3/uL 4.4-11.0 [facility] Blood erythrocytes count (nu mber/volume)Ordered By: Dr. Springer on 10-17-2022 RBC (Bld) [#/Vol] 5.13 10*6/uL 4.2-5.4 [facility] Blood hemoglobin measurement (mass/volume)Ordered By: Dr. Springer on 10-17-2022 Hemoglobin (Bld) [Mass/Vol] 14.9 g/dL 12.0-15.0 [facility] Blood lymphocytes/100 leukoc ytesOrdered By: Dr. Springer on 10-17-2022 Lymphocytes/100 WBC (Bld) 30.6 % 19-41 [facility] Blood monocytes/100 leukocyt esOrdered By: Dr. Springer on 10-17-2022 Monocytes/100 WBC (Bld) 7.5 % 0-10 [facility] Blood platelet mean volumeOr dered By: Dr. Springer on 10-17-2022 Platelet mean volume (Bld) [Entitic vol] 11.2 fL 6.2-12.0 [facility] Determination of erythrocyte mean corpuscular volume (MCV)Ordered By: Dr. Springer on 10-17-2022 MCV (RBC) [Entitic vol] 90.3 fL 81-99 [facility] Hematocrit Auto (Bld) [Volum e fraction]Ordered By: Dr. Springer on 10-17-2022 Hematocrit (Bld) [Volume fraction] 46.3 % 37-47 [facility] - Hematology and Cell countsOrdered By: Dr. Springer on 10-17-2022 Erythrocyte distribution width (RBC) [Entitic vol] 43.7 fL 35.1-43.9 [facility] Erythrocyte distribution width (RBC) [Ratio] 13.3 % 11.6-14.6 [facility] Immature granulocytes/100 WBC (Bld) 0.300 % 0.0-0.9 [facility] Comment on above: IG% - Immature Granu locytes (promyelocytes, myelocytes and metamyelocytes) > 1% indicates that a LEFT SHIFT is Present. MCH (RBC) [Entitic mass] 29.0 pg 27.0-32.0 [facility] Nucleated RBC/100 WBC (Bld) [Ratio] 0 % 0-5 [facility] MCHC Auto (RBC) [Mass/Vol]Or dered By: Dr. Springer on 10-17-2022 MCHC (RBC) [Mass/Vol] 32.2 g/dL 32-36 [facility] Platelets bldOrdered By: Dr. Springer on 10-17-2022 Platelets (Bld) [#/Vol] 199 10*3/uL 150-450 [facility] Absolute lymphocyte countOrd ered By: Dr. Springer on 09-19-2022 Lymphocytes Auto (Unsp spec) [#/Vol] 2.26 10*3/uL 0.83-4.51 [facility] Basophil percentageOrdered B y: Dr. Springer on 09-19-2022 Basophils/100 WBC (Bld) 0.6 % 0-1 [facility] Eosinophils/100 WBC (Bld) 0.3 % 0-5 [facility] Neutrophils (Bld) [#/Vol] 3.7 10*3/uL 2.0-7.7 [facility] Neutrophils/100 WBC (Bld) 55.2 % 47-70 [facility] WBC (Bld) [#/Vol] 6.7 10*3/uL 4.4-11.0 [facility] Blood erythrocytes count (nu mber/volume)Ordered By: Dr. Springer on 09-19-2022 RBC (Bld) [#/Vol] 4.98 10*6/uL 4.2-5.4 [facility] Blood hemoglobin measurement (mass/volume)Ordered By: Dr. Springer on 09-19-2022 Hemoglobin (Bld) [Mass/Vol] 14.4 g/dL 12.0-15.0 [facility] Blood lymphocytes/100 leukoc ytesOrdered By: Dr. Springer on 12-08-2022 Lymphocytes/100 WBC (Bld) 33.9 % 19-41 [facility] Blood manual differential co mment interpretation (narrative result)Ordered By: Dr. Springer on 09-19-2022 Manual differential comment [place] (Bld) [Interp] SCANNED [facility] Blood monocytes/100 leukocyt esOrdered By: Dr. Springer on 09-19-2022 Monocytes/100 WBC (Bld) 9.7 % 0-10 [facility] Blood platelet mean volumeOr dered By: Dr. Springer on 09-19-2022 Platelet mean volume (Bld) [Entitic vol] 10.2 fL 6.2-12.0 [facility] Determination of erythrocyte mean corpuscular volume (MCV)Ordered By: Dr. Springer on 09-19-2022 MCV (RBC) [Entitic vol] 91.8 fL 81-99 [facility] Hematocrit Auto (Bld) [Volum e fraction]Ordered By: Dr. Springer on 09-19-2022 Hematocrit (Bld) [Volume fraction] 45.7 % 37-47 [facility] - Hematology and Cell countsOrdered By: Dr. Springer on 09-19-2022 Erythrocyte distribution width (RBC) [Entitic vol] 44.5 fL 35.1-43.9 [facility] Erythrocyte distribution width (RBC) [Ratio] 13.2 % 11.6-14.6 [facility] Immature granulocytes/100 WBC (Bld) 0.300 % 0.0-0.9 [facility] Comment on above: IG% - Immature Granu locytes (promyelocytes, myelocytes and metamyelocytes) > 1% indicates that a LEFT SHIFT is Present. MCH (RBC) [Entitic mass] 28.9 pg 27.0-32.0 [facility] Nucleated RBC/100 WBC (Bld) [Ratio] 0 % 0-5 [facility] MCHC Auto (RBC) [Mass/Vol]Or dered By: Dr. Springer on 09-19-2022 MCHC (RBC) [Mass/Vol] 31.5 g/dL 32-36 [facility] No Panel InformationOrdered By: Dr. Springer on 09-19-2022 Atypical Lymphocytes 1+ % [facility] Platelets bldOrdered By: Dr. Springer on 09-19-2022 Platelets (Bld) [#/Vol] 198 10*3/uL 150-450 [facility] Absolute lymphocyte countOrd ered By: Dr. Springer on 08-15-2022 Lymphocytes Auto (Unsp spec) [#/Vol] 2.32 10*3/uL 0.83-4.51 [facility] Basophil percentageOrdered B y: Dr. Springer on 08-15-2022 Basophils/100 WBC (Bld) 0.6 % 0-1 [facility] Eosinophils/100 WBC (Bld) 0.3 % 0-5 [facility] Neutrophils (Bld) [#/Vol] 3.8 10*3/uL 2.0-7.7 [facility] Neutrophils/100 WBC (Bld) 57.5 % 47-70 [facility] WBC (Bld) [#/Vol] 6.7 10*3/uL 4.4-11.0 [facility] Blood erythrocytes count (nu mber/volume)Ordered By: Dr. Springer on 08-15-2022 RBC (Bld) [#/Vol] 4.65 10*6/uL 4.2-5.4 [facility] Blood hemoglobin measurement (mass/volume)Ordered By: Dr. Springer on 08-15-2022 Hemoglobin (Bld) [Mass/Vol] 14.2 g/dL 12.0-15.0 [facility] Blood lymphocytes/100 leukoc ytesOrdered By: Dr. Springer on 08-15-2022 Lymphocytes/100 WBC (Bld) 34.9 % 19-41 [facility] Blood monocytes/100 leukocyt esOrdered By: Dr. Springer on 08-15-2022 Monocytes/100 WBC (Bld) 6.5 % 0-10 [facility] Blood platelet mean volumeOr dered By: Dr. Springer on 08-15-2022 Platelet mean volume (Bld) [Entitic vol] 10.1 fL 6.2-12.0 [facility] Blood platelet morphology de termination (nominal result)Ordered By: Dr. Springer on 08-15-2022 Platelet morphology finding Nom (Bld) LARGE [facility] Determination of erythrocyte mean corpuscular volume (MCV)Ordered By: Dr. Springer on 08-15-2022 MCV (RBC) [Entitic vol] 92.0 fL 81-99 [facility] Hematocrit Auto (Bld) [Volum e fraction]Ordered By: Dr. Springer on 08-15-2022 Hematocrit (Bld) [Volume fraction] 42.8 % 37-47 [facility] - Hematology and Cell countsOrdered By: Dr. Springer on 08-15-2022 Erythrocyte distribution width (RBC) [Entitic vol] 45.7 fL 35.1-43.9 [facility] Erythrocyte distribution width (RBC) [Ratio] 13.6 % 11.6-14.6 [facility] Immature granulocytes/100 WBC (Bld) 0.200 % 0.0-0.9 [facility] Comment on above: IG% - Immature Granu locytes (promyelocytes, myelocytes and metamyelocytes) > 1% indicates that a LEFT SHIFT is Present. MCH (RBC) [Entitic mass] 30.5 pg 27.0-32.0 [facility] Nucleated RBC/100 WBC (Bld) [Ratio] 0 % 0-5 [facility] MCHC Auto (RBC) [Mass/Vol]Or dered By: Dr. Springer on 08-15-2022 MCHC (RBC) [Mass/Vol] 33.2 g/dL 32-36 [facility] No Panel InformationOrdered By: Dr. Springer on 08-15-2022 Reactive Lymphocytes RARE [facility] Platelets bldOrdered By: Dr. Springer on 08-15-2022 Platelets (Bld) [#/Vol] 185 10*3/uL 150-450 [facility] Absolute lymphocyte countOrd ered By: Dr. Springer on 07-23-2022 Lymphocytes Auto (Unsp spec) [#/Vol] 2.25 10*3/uL 0.83-4.51 [facility] Basophil percentageOrdered B y: Dr. Springer on 07-23-2022 Basophils/100 WBC (Bld) 0.5 % 0-1 [facility] Eosinophils/100 WBC (Bld) 0.1 % 0-5 [facility] Neutrophils (Bld) [#/Vol] 4.6 10*3/uL 2.0-7.7 [facility] Neutrophils/100 WBC (Bld) 62.0 % 47-70 [facility] WBC (Bld) [#/Vol] 7.4 10*3/uL 4.4-11.0 [facility] Blood erythrocytes count (nu mber/volume)Ordered By: Dr. Springer on 07-23-2022 RBC (Bld) [#/Vol] 4.63 10*6/uL 4.2-5.4 [facility] Blood hemoglobin measurement (mass/volume)Ordered By: Dr. Springer on 07-23-2022 Hemoglobin (Bld) [Mass/Vol] 13.8 g/dL 12.0-15.0 [facility] Blood lymphocytes/100 leukoc ytesOrdered By: Dr. Springer on 07-23-2022 Lymphocytes/100 WBC (Bld) 30.5 % 19-41 [facility] Blood monocytes/100 leukocyt esOrdered By: Dr. Springer on 07-23-2022 Monocytes/100 WBC (Bld) 6.6 % 0-10 [facility] Blood platelet adequacy dete ction by light microscopyOrdered By: Dr. Springer on 07-23-2022 Platelets LM Ql (Bld) ADEQUATE ADEQ [facility] Blood platelet mean volumeOr dered By: Dr. Springer on 07-23-2022 Platelet mean volume (Bld) [Entitic vol] 10.0 fL 6.2-12.0 [facility] Determination of erythrocyte mean corpuscular volume (MCV)Ordered By: Dr. Springer on 07-23-2022 MCV (RBC) [Entitic vol] 92.7 fL 81-99 [facility] Hematocrit Auto (Bld) [Volum e fraction]Ordered By: Dr. Springer on 07-23-2022 Hematocrit (Bld) [Volume fraction] 42.9 % 37-47 [facility] Laboratory - Hematology and Cell countsOrdered By: Dr. Springer on 07-23-2022 Erythrocyte distribution width (RBC) [Entitic vol] 47.2 fL 35.1-43.9 [facility] Erythrocyte distribution width (RBC) [Ratio] 13.9 % 11.6-14.6 [facility] Immature granulocytes/100 WBC (Bld) 0.300 % 0.0-0.9 [facility] Comment on above: IG% - Immature Granu locytes (promyelocytes, myelocytes and metamyelocytes) > 1% indicates that a LEFT SHIFT is Present. MCH (RBC) [Entitic mass] 29.8 pg 27.0-32.0 [facility] Nucleated RBC/100 WBC (Bld) [Ratio] 0 % 0-5 [facility] MCHC Auto (RBC) [Mass/Vol]Or dered By: Dr. Springer on 07-23-2022 MCHC (RBC) [Mass/Vol] 32.2 g/dL 32-36 [facility] Platelets bldOrdered By: Dr. Springer on 07-23-2022 Platelets (Bld) [#/Vol] 210 10*3/uL 150-450 [facility] RBC morphologyOrdered By: Dr Meghan Springer on 07-23-2022 RBC morphology finding Nom (Bld) NORM C+C NORMAL NORM C&C [facility] Absolute lymphocyte counton 06-19-2022 Lymphocytes Auto (Unsp spec) [#/Vol] 2.95 10*3/uL 0.83-4.51 [facility] Work Phone: Basophil percentageon 2021 Basophils/100 WBC (Bld) 0.3 % 0-1 [facility] Work Phone: Eosinophils/100 WBC (Bld) 0.2 % 0-5 [facility] Work Phone: Neutrophils (Bld) [#/Vol] 5.4 10*3/uL 2.0-7.7 [facility] Work Phone: Neutrophils/100 WBC (Bld) 59.6 % 47-70 [facility] Work Phone: WBC (Bld) [#/Vol] 9.1 10*3/uL 4.4-11.0 [facility] Work Phone: Blood erythrocytes count (nu mber/volume)on 06-19-2022 RBC (Bld) [#/Vol] 4.69 10*6/uL 4.2-5.4 [facility] Work Phone: Blood hemoglobin measurement (mass/volume)on 06-19-2022 Hemoglobin (Bld) [Mass/Vol] 13.8 g/dL 12.0-15.0 [facility] Work Phone: Blood lymphocytes/100 leukoc yteson 06-19-2022 Lymphocytes/100 WBC (Bld) 32.5 % 19-41 [facility] Work Phone: [phone] Blood monocytes/100 leukocyt eson 06-19-2022 Monocytes/100 WBC (Bld) 7.1 % 0-10 [facility] Work Phone: Blood platelet adequacy dete ction by light microscopyon 06-19-2022 Platelets LM Ql (Bld) [facility] A[facility]Q [facility] Work Phone: Blood platelet mean volumeon 06-19-2022 Platelet mean volume (Bld) [Entitic vol] 10.0 fL 6.2-12.0 [facility] Work Phone: Determination of erythrocyte mean corpuscular volume (MCV)on 06-19-2022 MCV (RBC) [Entitic vol] 90.0 fL 81-99 [facility] Work Phone: Hematocrit Auto (Bld) [Volum e fraction]on 06-19-2022 Hematocrit (Bld) [Volume fraction] 42.2 % 37-47 [facility] Work Phone: Laboratory - Hematology and Cell countson 06-19-2022 Erythrocyte distribution width (RBC) [Entitic vol] 45.1 fL 35.1-43.9 [facility] Work Phone: Erythrocyte distribution width (RBC) [Ratio] 13.8 % 11.6-14.6 [facility] Work Phone: Immature granulocytes/100 WBC (Bld) 0.300 % 0.0-0.9 [facility] Work Phone: Comment on above: IG% - Immature Granu locytes (promyelocytes, myelocytes and metamyelocytes) > 1% indicates that a LEFT SHIFT is Present. MCH (RBC) [Entitic mass] 29.4 pg 27.0-32.0 [facility] Work Phone: Nucleated RBC/100 WBC (Bld) [Ratio] 0 % 0-5 [facility] Work Phone: MCHC Auto (RBC) [Mass/Vol]on 06-19-2022 MCHC (RBC) [Mass/Vol] 32.7 g/dL 32-36 [facility] Work Phone: No Panel Informationon 06-19 Atypical Lymphocytes 1+ % [facility] Work Phone: Platelets bldon 06-19-2022 Platelets (Bld) [#/Vol] 209 10*3/uL 150-450 [facility] Work Phone: RBC morphologyon 06-19-2022 RBC morphology finding Nom (Bld) NORM C+C NORMAL NORM C&C [facility] Work Phone: Absolute lymphocyte counton 06-05-2022 Lymphocytes Auto (Unsp spec) [#/Vol] 2.74 10*3/uL 0.83-4.51 [facility] Work Phone: Basophil percentageon 2021 Basophils/100 WBC (Bld) 0.5 % 0-1 [facility] Work Phone: [phone] Bilirubin [Mass/Vol] 0.20 mg/dL 0.20-1.00 [facility] Work Phone: Comment on above: For patients on eltr ombopag therapy, use of Dimension Icard TBIL is not recommended. Chloride [Moles/Vol] 106 mmol/L 98-107 [facility] Work Phone: Eosinophils/100 WBC (Bld) 0.1 % 0-5 [facility] Work Phone: Glucose [Mass/Vol] 206 mg/dL 74-106 [facility] Work Phone: Comment on above: Glucose result great er than or equal to 200 mg/dLsuggests DIABETES MELLITUS per A.D.A. criteria. Neutrophils (Bld) [#/Vol] 5.4 10*3/uL 2.0-7.7 [facility] Work Phone: [phone] Neutrophils/100 WBC (Bld) 61.0 % 47-70 [facility] Work Phone: Potassium [Moles/Vol] 4.3 mmol/L 3.5-5.1 [facility] Work Phone: Protein [Mass/Vol] 7.6 g/dL 6.4-8.2 [facility] Work Phone: Sodium [Moles/Vol] 139 mmol/L 136-145 [facility] Work Phone: WBC (Bld) [#/Vol] 8.9 10*3/uL 4.4-11.0 [facility] Work Phone: Basophil percentage 0 SEEN [facility]: Bilirubin Test strip Ql (U)o n 06-05-2022 Bilirubin Ql (U) Negative Negative [facility] Work Phone: [phone] Blood erythrocytes count (nu mber/volume)on 06-05-2022 RBC (Bld) [#/Vol] 4.70 10*6/uL 4.2-5.[facility]: Blood hemoglobin measurement (mass/volume)on 06-05-2022 Hemoglobin (Bld) [Mass/Vol] 14.1 g/dL 12.0-15.0 [facility] Work Phone: Blood lymphocytes/100 leukoc yteson 06-05-2022 Lymphocytes/100 WBC (Bld) 30.9 % 19-41 [facility] Work Phone: Blood monocytes/100 leukocyt eson 06-05-2022 Monocytes/100 WBC (Bld) 7.0 % 0-10 [facility] Work Phone: Blood platelet mean volumeon 06-05-2022 Platelet mean volume (Bld) [Entitic vol] 9.7 fL 6.2-12.0 [facility] Work Phone: Determination of erythrocyte mean corpuscular volume (MCV)on 06-05-2022 MCV (RBC) [Entitic vol] 89.6 fL 81-99 [facility] Work Phone: Hematocrit Auto (Bld) [Volum e fraction]on 06-05-2022 Hematocrit (Bld) [Volume fraction] 42.1 % 37-47 [facility] Work Phone: Ketones Test strip Ql (U)on 06-05-2022 Ketones Ql (U) Negative Negative [facility] Work Phone: Laboratory - Chemistry and C hemistry - challengeon 06-05-2022 ALP [Catalytic activity/Vol] 162 U/L 45-117 [facility] Work Phone: ALT [Catalytic activity/Vol] 68 U/L 13-56 [facility] Work Phone: CO2 [Moles/Vol] 25.0 mmol/L 21.0-32.0 [facility] Work Phone: Globulin (S) [Mass/Vol] 3.9 g/dL 2.2-4.2 [facility] Work Phone: Urea nitrogen/Creatinine [Mass ratio] 22.3 mg/mg 10-20 [facility] Work Phone: Laboratory - Drug toxicology on 06-05-2022 Amphetamines Ql (U) Negative <1000 ng/mL [facility] Work Phone: Benzodiazepines Ql (U) Negative < 200 ng/mL [facility] Work Phone: Cannabinoids Screen Ql (U) Negative < 50 ng/mL [facility] Work Phone: Cocaine Ql (U) Negative < 300 ng/mL [facility] Work Phone: Opiates Ql (U) Negative < 300 ng/mL [facility] Work Phone: Laboratory - Hematology and Cell countson 06-05-2022 Erythrocyte distribution width (RBC) [Entitic vol] 46.8 fL 35.1-43.9 [facility] Work Phone: Erythrocyte distribution width (RBC) [Ratio] 14.2 % 11.6-14.6 [facility] Work Phone: Immature granulocytes/100 WBC (Bld) 0.500 % 0.0-0.9 [facility] Work Phone: Comment on above: IG% - Immature Granu locytes (promyelocytes, myelocytes and metamyelocytes) > 1% indicates that a LEFT SHIFT is Present. MCH (RBC) [Entitic mass] 30.0 pg 27.0-32.0 [facility] Work Phone: Nucleated RBC/100 WBC (Bld) [Ratio] 0 % 0-5 [facility] Work Phone: MCHC Auto (RBC) [Mass/Vol]on 06-05-2022 MCHC (RBC) [Mass/Vol] 33.5 g/dL 32-36 [facility] Work Phone: Mucus LM Ql (Urine sed)on Mucus Ql (Urine sed) 0 SEEN /hpf [facility] Work Phone: Nitrite Test strip Ql (U)on 06-05-2022 Nitrite Ql (U) Negative Negative [facility] Work Phone: No Panel Informationon 06-05 Estimated Creatinine Clearance Calc 64.27 ml/min [facility] Work Phone: Estimated GFR (MDRD) Amer 107 mL/min >60 [facility] Work Phone: Comment on above: GFR Calc Estimated GFR (MDRD) Non-Af Amer 89 mL/min >60 [facility] Work Phone: Comment on above: Non- GFR Calc Ethyl Alcohol Level < 3.0 mg/dL [facility] Work Phone: Comment on above: The serum:whole bloo d ethanol ratio is approximately 1.14and varies slightly with hematocrit. Medical Alcohol reference interval and critical value innon-tolerant individuals; 50 - 100 Impairment 100 Intoxication 100 - 250 Severe Poisoning 250 - 400 Deep/possible fatal coma Troponin I High Sensitivity < 3 pg/mL 3.0-54.0 [facility] Work Phone: Comment on above: Please Note: New Janeth t Units and Gender Specific Reference Ranges. For more information see Policy Stat Procedure Icard High Sensitivity Troponin (TNIH) and attachments. MDMA (Ecstasy) Screen Negative < 500 ng/mL [facility] Work Phone: Urine Barbiturates Screen Negative < 200 ng/mL [facility] Work Phone: Urine Drug Screen Comment [facility] Work Phone: Comment on above: CONFIRMATORY TESTING FOR ALL POSITIVE URINE DRUG SCREENRESULTS WILL ONLY BE SENT OUT UPON PHYSICIAN ORDER. VISTA Urine Drug Screen methods provide only preliminaryanalytical test results. A more specific alternate chemicalmethod must be used in order to obtain a confirmedanalytical result. Gas chromatography/mass spectrometery(GC/MS) is the preferred confirmatory method. Clinicalconsideration and professional judgement should be appliedto any drug of abuse test result, particularly whenpreliminary positive results are used. URINE TCA TESTING MUST BE ORDERED SEPARATELY. USE TESTMNEMONIC: [facility] Urine Methadone Screen Negative < 300 ng/mL [facility] Work Phone: Platelets bldon 06-05-2022 Platelets (Bld) [#/Vol] 220 10*3/uL 150-450 [facility] Work Phone: Protein Test strip Ql (U)on 06-05-2022 Protein Ql (U) Negative Negative [facility] Work Phone: Serum or plasma albumin lawrence urement (mass/volume)on 06-05-2022 Albumin [Mass/Vol] 3.7 g/dL 3.2-5.0 [facility] Work Phone: Serum or plasma albumin/glob ulin mass ratioon 06-05-2022 Albumin/Globulin [Mass ratio] 0.9 {ratio} 0.9-2.4 [facility] Work Phone: Serum or plasma calcium lawrence urement (mass/volume)on 06-05-2022 Calcium [Mass/Vol] 9.2 mg/dL 8.5-10.1 [facility] Work Phone: Serum or plasma creatinine m easurement (mass/volume)on 06-05-2022 Creatinine [Mass/Vol] 0.72 mg/dL 0.55-1.02 [facility] Work Phone: Comment on above: The validity of the calculated GFR & GFRAA in patients over 70 years has not been determined. Clinical correlation is essential. Serum or plasma urea nitroge n measurement (mass/volume)on 06-05-2022 Urea nitrogen [Mass/Vol] 16 mg/dL 7-18 [facility] Work Phone: Squamous epithelial cells de tection in urine sediment by light microscopyon 06-05-2022 Epithelial cells.squamous LM Ql (Urine sed) 0 SEEN /hpf 5-10 [facility] Work Phone: Thin prep Papanicolaou smear with manual screeningon 06-05-2022 Thin prep Papanicolaou smear with manual screening 52 U/L 15-37 [facility] Work Phone: Thin prep Papanicolaou smear with manual screening 8 5-15 [facility] Work Phone: Urine blood detectionon 05-14 RBC Ql (U) Negative Negative [facility] Work Phone: RBC Ql (U) 0 SEEN /hpf 0-5 [facility] Work Phone: Urine clarityon 06-05-2022 Clarity (U) Clear Clear [facility] Work Phone: Urine color determinationon 06-05-2022 Color (U) Straw Yellow [facility] Work Phone: Urine glucose detectionon Glucose Ql (U) 1000 mg/dl Normal [facility] Work Phone: Urine leukocyte esterase det ection by dipstickon 06-05-2022 Leukocyte esterase Test strip Ql (U) Negative Negative [facility] Work Phone: Urine pHon 06-05-2022 pH (U) 6.0 [pH] 5.0 - 8.0 [facility] Work Phone: Urine phencyclidine (PCP) de tectionon 06-05-2022 Phencyclidine Ql (U) Negative < 25 ng/mL [facility] Work Phone: Urine sediment bacteria coun t by microscopy (number/high power field)on 06-05-2022 Bacteria LM.HPF (Urine sed) [#/Area] 0 /[HPF] None Seen [facility] Work Phone: Urine specific gravity measu rementon 06-05-2022 Specific gravity (U) [Rel density] 1.010 1.002-1.030 [facility] Work Phone: Urobilinogen Auto test strip Ql (U)on 06-05-2022 Urobilinogen Ql (U) Normal mg/dl Normal [facility] Work Phone: Absolute lymphocyte counton 05-17-2022 Lymphocytes Auto (Unsp spec) [#/Vol] 2.96 10*3/uL 0.83-4.51 [facility] Work Phone: Basophil percentageon 2021 Basophils/100 WBC (Bld) 0.5 % 0-1 [facility] Work Phone: Eosinophils/100 WBC (Bld) 0.0 % 0-5 [facility] Work Phone: Neutrophils (Bld) [#/Vol] 5.6 10*3/uL 2.0-7.7 [facility] Work Phone: Neutrophils/100 WBC (Bld) 59.7 % 47-70 [facility] Work Phone: WBC (Bld) [#/Vol] 9.4 10*3/uL 4.4-11.0 [facility] Work Phone: Blood erythrocytes count (nu mber/volume)on 05-17-2022 RBC (Bld) [#/Vol] 4.82 10*6/uL 4.2-5.4 [facility] Work Phone: Blood hemoglobin measurement (mass/volume)on 05-17-2022 Hemoglobin (Bld) [Mass/Vol] 14.1 g/dL 12.0-15.0 [facility] Work Phone: Blood lymphocytes/100 leukoc yteson 05-17-2022 Lymphocytes/100 WBC (Bld) 31.5 % 19-41 [facility] Work Phone: Blood monocytes/100 leukocyt eson 05-17-2022 Monocytes/100 WBC (Bld) 7.8 % 0-10 [facility] Work Phone: Blood platelet mean volumeon 05-17-2022 Platelet mean volume (Bld) [Entitic vol] 10.6 fL 6.2-12.0 [facility] Work Phone: Determination of erythrocyte mean corpuscular volume (MCV)on 05-17-2022 MCV (RBC) [Entitic vol] 90.7 fL 81-99 [facility] Work Phone: Hematocrit Auto (Bld) [Volum e fraction]on 05-17-2022 Hematocrit (Bld) [Volume fraction] 43.7 % 37-47 [facility] Work Phone: Laboratory - Hematology and Cell countson 05-17-2022 Erythrocyte distribution width (RBC) [Entitic vol] 45.5 fL 35.1-43.9 [facility] Work Phone: Erythrocyte distribution width (RBC) [Ratio] 13.9 % 11.6-14.6 [facility] Work Phone: Immature granulocytes/100 WBC (Bld) 0.500 % 0.0-0.9 [facility] Work Phone: Comment on above: IG% - Immature Granu locytes (promyelocytes, myelocytes and metamyelocytes) > 1% indicates that a LEFT SHIFT is Present. MCH (RBC) [Entitic mass] 29.3 pg 27.0-32.0 [facility] Work Phone: Nucleated RBC/100 WBC (Bld) [Ratio] 0 % 0-5 [facility] Work Phone: MCHC Auto (RBC) [Mass/Vol]on 05-17-2022 MCHC (RBC) [Mass/Vol] 32.3 g/dL 32-36 [facility] Work Phone: No Panel Informationon 05-17 Reactive Lymphocytes RARE [facility] Work Phone: Platelets bldon 05-17-2022 Platelets (Bld) [#/Vol] 189 10*3/uL 150-450 [facility] Work Phone: Absolute lymphocyte counton 04-17-2022 Lymphocytes Auto (Unsp spec) [#/Vol] 2.37 10*3/uL 0.83-4.51 [facility] Work Phone: Basophil percentageon 2021 Basophils/100 WBC (Bld) 0.3 % 0-1 [facility] Work Phone: Eosinophils/100 WBC (Bld) 0.0 % 0-5 [facility] Work Phone: Neutrophils (Bld) [#/Vol] 7.5 10*3/uL 2.0-7.7 [facility] Work Phone: Neutrophils/100 WBC (Bld) 71.4 % 47-70 [facility] Work Phone: WBC (Bld) [#/Vol] 10.5 10*3/uL 4.4-11.0 [facility] Work Phone: [phone] Blood erythrocytes count (nu mber/volume)on 04-17-2022 RBC (Bld) [#/Vol] 5.00 10*6/uL 4.2-5.4 [facility] Work Phone: Blood hemoglobin measurement (mass/volume)on 04-17-2022 Hemoglobin (Bld) [Mass/Vol] 14.5 g/dL 12.0-15.0 [facility] Work Phone: Blood lymphocytes/100 leukoc yteson 04-17-2022 Lymphocytes/100 WBC (Bld) 22.6 % 19-41 [facility] Work Phone: Blood monocytes/100 leukocyt eson 04-17-2022 Monocytes/100 WBC (Bld) 5.3 % 0-10 [facility] Work Phone: Blood platelet mean volumeon 04-17-2022 Platelet mean volume (Bld) [Entitic vol] 11.6 fL 6.2-12.0 [facility] Work Phone: Determination of erythrocyte mean corpuscular volume (MCV)on 04-17-2022 MCV (RBC) [Entitic vol] 88.4 fL 81-99 [facility] Work Phone: Hematocrit Auto (Bld) [Volum e fraction]on 04-17-2022 Hematocrit (Bld) [Volume fraction] 44.2 % 37-47 [facility] Work Phone: Laboratory - Hematology and Cell countson 04-17-2022 Erythrocyte distribution width (RBC) [Entitic vol] 43.8 fL 35.1-43.9 [facility] Work Phone: Erythrocyte distribution width (RBC) [Ratio] 13.5 % 11.6-14.6 [facility] Work Phone: Immature granulocytes/100 WBC (Bld) 0.400 % 0.0-0.9 [facility] Work Phone: Comment on above: IG% - Immature Granu locytes (promyelocytes, myelocytes and metamyelocytes) > 1% indicates that a LEFT SHIFT is Present. MCH (RBC) [Entitic mass] 29.0 pg 27.0-32.0 [facility] Work Phone: Nucleated RBC/100 WBC (Bld) [Ratio] 0 % 0-5 [facility] Work Phone: MCHC Auto (RBC) [Mass/Vol]on 04-17-2022 MCHC (RBC) [Mass/Vol] 32.8 g/dL 32-36 [facility] Work Phone: Platelets bldon 04-17-2022 Platelets (Bld) [#/Vol] 166 10*3/uL 150-450 [facility] Work Phone: Glucose Glucometer (BldC) [M ass/Vol]on 04-10-2022 Glucose [Mass/Vol] 152 mg/dL 74-106 [facility] Work Phone: Comment on above: MANAGEMENT OF PATIEN T CARE PER NURSING PROTOCOL Absolute lymphocyte counton 04-09-2022 Lymphocytes Auto (Unsp spec) [#/Vol] 2.51 10*3/uL 0.83-4.51 [facility] Work Phone: Basophil percentageon 2021 Basophils/100 WBC (Bld) 0.5 % 0-1 [facility] Work Phone: Chloride [Moles/Vol] 105 mmol/L 98-107 [facility] Work Phone: Eosinophils/100 WBC (Bld) 0.1 % 0-5 [facility] Work Phone: [phone] Glucose [Mass/Vol] 151 mg/dL 74-106 [facility] Work Phone: Comment on above: Slight Lipemia, Resu lt may be falsely increased.Fasting Glucose result greater than or equal to 126 mg/dL suggests DIABETES MELLITUS per A.D.A. criteria. Neutrophils (Bld) [#/Vol] 6.1 10*3/uL 2.0-7.7 [facility] Work Phone: Neutrophils/100 WBC (Bld) 65.3 % 47-70 [facility] Work Phone: Potassium [Moles/Vol] 3.9 mmol/L 3.5-5.1 [facility] Work Phone: Comment on above: Slight Lipemia, Resu lt may be falsely increased. Sodium [Moles/Vol] 138 mmol/L 136-145 [facility] Work Phone: WBC (Bld) [#/Vol] 9.3 10*3/uL 4.4-11.0 [facility] Work Phone: Blood erythrocytes count (nu mber/volume)on 04-09-2022 RBC (Bld) [#/Vol] 4.91 10*6/uL 4.2-5.4 [facility] Work Phone: Blood hemoglobin measurement (mass/volume)on 04-09-2022 Hemoglobin (Bld) [Mass/Vol] 14.3 g/dL 12.0-15.0 [facility] Work Phone: Blood lymphocytes/100 leukoc yteson 04-09-2022 Lymphocytes/100 WBC (Bld) 27.0 % 19-41 [facility] Work Phone: Blood manual differential co mment interpretation (narrative result)on 04-09-2022 Manual differential comment Diego (Bld) [Interp] SCANNED [facility] Work Phone: Comment on above: AUTO DIFF OK Blood monocytes/100 leukocyt eson 04-09-2022 Monocytes/100 WBC (Bld) 6.9 % 0-10 [facility] Work Phone: Blood platelet mean volumeon 04-09-2022 Platelet mean volume (Bld) [Entitic vol] 10.2 fL 6.2-12.0 [facility] Work Phone: Determination of erythrocyte mean corpuscular volume (MCV)on 04-09-2022 MCV (RBC) [Entitic vol] 88.4 fL 81-99 [facility] Work Phone: Hematocrit Auto (Bld) [Volum e fraction]on 06-28-2022 Hematocrit (Bld) [Volume fraction] 43.4 % 37-47 [facility] Work Phone: Laboratory - Chemistry and C hemistry - challengeon 04-09-2022 CO2 [Moles/Vol] 25.0 mmol/L 21.0-32.0 [facility] Work Phone: Comment on above: Slight Lipemia, Resu lt may be falsely increased. Urea nitrogen/Creatinine [Mass ratio] 24.0 mg/mg 10-20 [facility] Work Phone: Laboratory - Drug toxicology on 04-09-2022 Amphetamines Ql (U) Negative <1000 ng[facility]: Benzodiazepines Ql (U) Negative < 200 ng/mL [facility] Work Phone: Cannabinoids Screen Ql (U) Negative < 50 ng/mL [facility] Work Phone: Cocaine Ql (U) Negative < 300 ng/mL [facility] Work Phone: Opiates Ql (U) Negative < 300 ng/mL [facility] Work Phone: Laboratory - Hematology and Cell countson 04-09-2022 Erythrocyte distribution width (RBC) [Entitic vol] 45.0 fL 35.1-43.9 [facility] Work Phone: Erythrocyte distribution width (RBC) [Ratio] 14.0 % 11.6-14.6 [facility] Work Phone: Immature granulocytes/100 WBC (Bld) 0.200 % 0.0-0.9 [facility] Work Phone: Comment on above: IG% - Immature Granu locytes (promyelocytes, myelocytes and metamyelocytes) > 1% indicates that a LEFT SHIFT is Present. MCH (RBC) [Entitic mass] 29.1 pg 27.0-32.0 [facility] Work Phone: Nucleated RBC/100 WBC (Bld) [Ratio] 0 % 0-5 [facility] Work Phone: MCHC Auto (RBC) [Mass/Vol]on 04-09-2022 MCHC (RBC) [Mass/Vol] 32.9 g/dL 32-36 [facility] Work Phone: No Panel Informationon 04-09 Estimated Creatinine Clearance Calc 58.57 ml/min [facility] Work Phone: Estimated GFR (MDRD) Amer 96 mL/min >60 [facility] Work Phone: Comment on above: GFR Calc Estimated GFR (MDRD) Non-Af Amer 79 mL/min >60 [facility] Work Phone: Comment on above: Non- GFR Calc Ethyl Alcohol Level 9.0 mg/dL [facility] Work Phone: Comment on above: The serum:whole bloo d ethanol ratio is approximately 1.14and varies slightly with hematocrit. Medical Alcohol reference interval and critical value innon-tolerant individuals; 50 - 100 Impairment 100 Intoxication 100 - 250 Severe Poisoning 250 - 400 Deep/possible fatal coma MDMA (Ecstasy) Screen Negative < 500 ng/mL [facility] Work Phone: Urine Barbiturates Screen Negative < 200 ng/mL [facility] Work Phone: Urine Drug Screen Comment [facility] Work Phone: Comment on above: CONFIRMATORY TESTING FOR ALL POSITIVE URINE DRUG SCREENRESULTS WILL ONLY BE SENT OUT UPON PHYSICIAN ORDER. VISTA Urine Drug Screen methods provide only preliminaryanalytical test results. A more specific alternate chemicalmethod must be used in order to obtain a confirmedanalytical result. Gas chromatography/mass spectrometery(GC/MS) is the preferred confirmatory method. Clinicalconsideration and professional judgement should be appliedto any drug of abuse test result, particularly whenpreliminary positive results are used. URINE TCA TESTING MUST BE ORDERED SEPARATELY. USE TESTMNEMONIC: [facility] Urine Methadone Screen Negative < 300 ng/mL [facility] Work Phone: Platelets bldon 04-09-2022 Platelets (Bld) [#/Vol] 197 10*3/uL 150-450 [facility] Work Phone: Serum or plasma calcium lawrence urement (mass/volume)on 04-09-2022 Calcium [Mass/Vol] 9.2 mg/dL 8.5-10.1 [facility] Work Phone: Comment on above: Slight Lipemia, Resu lt may be falsely increased. Serum or plasma creatinine m easurement (mass/volume)on 04-09-2022 Creatinine [Mass/Vol] 0.79 mg/dL 0.55-1.02 [facility] Work Phone: Comment on above: Slight Lipemia, Resu lt may be falsely increased.The validity of the calculated GFR & GFRAA in patients over 70 years has not been determined. Clinical correlation is essential. Serum or plasma urea nitroge n measurement (mass/volume)on 04-09-2022 Urea nitrogen [Mass/Vol] 19 mg/dL 7-18 [facility] Work Phone: Comment on above: Slight Lipemia, Resu lt may be falsely increased. Thin prep Papanicolaou smear with manual screeningon 04-09-2022 Thin prep Papanicolaou smear with manual screening 8 5-15 [facility] Work Phone: Urine phencyclidine (PCP) de tectionon 04-09-2022 Phencyclidine Ql (U) Negative < 25 ng/mL [facility] Work Phone: Absolute lymphocyte counton 03-20-2022 Lymphocytes Auto (Unsp spec) [#/Vol] 2.53 10*3/uL 0.83-4.51 [facility] Work Phone: Basophil percentageon 2021 Basophils/100 WBC (Bld) 0.2 % 0-1 [facility] Work Phone: Eosinophils/100 WBC (Bld) 0.1 % 0-5 [facility] Work Phone: Neutrophils (Bld) [#/Vol] 5.7 10*3/uL 2.0-7.7 [facility] Work Phone: Neutrophils/100 WBC (Bld) 64.2 % 47-70 [facility] Work Phone: WBC (Bld) [#/Vol] 8.9 10*3/uL 4.4-11.0 [facility] Work Phone: Blood erythrocytes count (nu mber/volume)on 03-20-2022 RBC (Bld) [#/Vol] 4.80 10*6/uL 4.2-5.[facility]: Blood hemoglobin measurement (mass/volume)on 03-20-2022 Hemoglobin (Bld) [Mass/Vol] 13.9 g/dL 12.0-15.0 [facility] Work Phone: Blood lymphocytes/100 leukoc yteson 03-20-2022 Lymphocytes/100 WBC (Bld) 28.3 % 19-41 [facility] Work Phone: Blood monocytes/100 leukocyt eson 03-20-2022 Monocytes/100 WBC (Bld) 7.0 % 0-10 [facility] Work Phone: Blood platelet adequacy dete ction by light microscopyon 03-20-2022 Platelets LM Ql (Bld) ADEQUATE ADEQ [facility] Work Phone: Blood platelet mean volumeon 03-20-2022 Platelet mean volume (Bld) [Entitic vol] 11.1 fL 6.2-12.0 [facility] Work Phone: Determination of erythrocyte mean corpuscular volume (MCV)on 03-20-2022 MCV (RBC) [Entitic vol] 89.8 fL 81-99 [facility] Work Phone: [phone] Hematocrit Auto (Bld) [Volum e fraction]on 03-20-2022 Hematocrit (Bld) [Volume fraction] 43.1 % 37-47 [facility] Work Phone: Laboratory - Hematology and Cell countson 03-20-2022 Erythrocyte distribution width (RBC) [Entitic vol] 44.5 fL 35.1-43.9 [facility] Work Phone: Erythrocyte distribution width (RBC) [Ratio] 13.7 % 11.6-14.6 [facility] Work Phone: Immature granulocytes/100 WBC (Bld) 0.200 % 0.0-0.9 [facility] Work Phone: [phone] Comment on above: IG% - Immature Granu locytes (promyelocytes, myelocytes and metamyelocytes) > 1% indicates that a LEFT SHIFT is Present. MCH (RBC) [Entitic mass] 29.0 pg 27.0-32.0 [facility] Work Phone: Nucleated RBC/100 WBC (Bld) [Ratio] 0 % 0-5 [facility] Work Phone: MCHC Auto (RBC) [Mass/Vol]on 03-20-2022 MCHC (RBC) [Mass/Vol] 32.3 g/dL 32-36 [facility] Work Phone: Platelets bldon 03-20-2022 Platelets (Bld) [#/Vol] 191 10*3/uL 150-450 [facility] Work Phone: RBC morphologyon 03-20-2022 RBC morphology finding Nom (Bld) NORM C+C NORMAL NORM C&C [facility] Work Phone: Absolute lymphocyte counton 02-13-2022 Lymphocytes Auto (Unsp spec) [#/Vol] 1.99 10*3/uL 0.83-4.51 [facility] Work Phone: Basophil percentageon 2021 Basophils/100 WBC (Bld) 0.5 % 0-1 [facility] Work Phone: Eosinophils/100 WBC (Bld) 0.1 % 0-5 [facility] Work Phone: Neutrophils (Bld) [#/Vol] 5.1 10*3/uL 2.0-7.7 [facility] Work Phone: Neutrophils/100 WBC (Bld) 66.1 % 47-70 [facility] Work Phone: WBC (Bld) [#/Vol] 7.7 10*3/uL 4.4-11.0 [facility] Work Phone: Blood erythrocytes count (nu mber/volume)on 02-13-2022 RBC (Bld) [#/Vol] 4.99 10*6/uL 4.2-5.4 [facility] Work [facility]: Blood hemoglobin measurement (mass/volume)on 02-13-2022 Hemoglobin (Bld) [Mass/Vol] 14.4 g/dL 12.0-15.0 [facility] Work Phone: Blood lymphocytes/100 leukoc yteson 02-13-2022 Lymphocytes/100 WBC (Bld) 25.7 % 19-41 [facility] Work Phone: Blood monocytes/100 leukocyt eson 02-13-2022 Monocytes/100 WBC (Bld) 7.1 % 0-10 [facility] Work Phone: Blood platelet mean volumeon 02-13-2022 Platelet mean volume (Bld) [Entitic vol] 10.2 fL 6.2-12.0 [facility] Work Phone: Determination of erythrocyte mean corpuscular volume (MCV)on 02-13-2022 MCV (RBC) [Entitic vol] 90.6 fL 81-99 [facility] Work Phone: Hematocrit Auto (Bld) [Volum e fraction]on 02-13-2022 Hematocrit (Bld) [Volume fraction] 45.2 % 37-47 [facility] Work Phone: Laboratory - Hematology and Cell countson 02-13-2022 Erythrocyte distribution width (RBC) [Entitic vol] 45.9 fL 35.1-43.9 [facility] Work Phone: Erythrocyte distribution width (RBC) [Ratio] 13.9 % 11.6-14.6 [facility] Work Phone: Immature granulocytes/100 WBC (Bld) 0.500 % 0.0-0.9 [facility] Work Phone: Comment on above: IG% - Immature Granu locytes (promyelocytes, myelocytes and metamyelocytes) > 1% indicates that a LEFT SHIFT is Present. MCH (RBC) [Entitic mass] 28.9 pg 27.0-32.0 [facility] Work Phone: Nucleated RBC/100 WBC (Bld) [Ratio] 0 % 0-5 [facility] Work Phone: MCHC Auto (RBC) [Mass/Vol]on 02-13-2022 MCHC (RBC) [Mass/Vol] 31.9 g/dL 32-36 [facility] Work Phone: Platelets bldon 02-13-2022 Platelets (Bld) [#/Vol] 231 10*3/uL 150-450 [facility] Work Phone: Absolute lymphocyte counton 01-14-2022 Lymphocytes Auto (Unsp spec) [#/Vol] 3.17 10*3/uL 0.83-4.51 [facility] Work Phone: Basophil percentageon 2021 Basophils/100 WBC (Bld) 0.6 % 0-1 [facility] Work Phone: Eosinophils/100 WBC (Bld) 0.2 % 0-5 [facility] Work Phone: Neutrophils (Bld) [#/Vol] 6.3 10*3/uL 2.0-7.7 [facility] Work Phone: Neutrophils/100 WBC (Bld) 61.6 % 47-70 [facility] Work Phone: WBC (Bld) [#/Vol] 10.3 10*3/uL 4.4-11.0 [facility] Work Phone: Blood erythrocytes count (nu mber/volume)on 01-14-2022 RBC (Bld) [#/Vol] 5.25 10*6/uL 4.2-5.4 [facility] Work Phone: Blood hemoglobin measurement (mass/volume)on 01-14-2022 Hemoglobin (Bld) [Mass/Vol] 15.0 g/dL 12.0-15.0 [facility] Work Phone: Blood lymphocytes/100 leukoc yteson 01-14-2022 Lymphocytes/100 WBC (Bld) 30.9 % 19-41 [facility] Work Phone: Blood monocytes/100 leukocyt eson 01-14-2022 Monocytes/100 WBC (Bld) 6.3 % 0-10 [facility] Work Phone: Blood platelet mean volumeon 01-14-2022 Platelet mean volume (Bld) [Entitic vol] 10.7 fL 6.2-12.0 [facility] Work Phone: Determination of erythrocyte mean corpuscular volume (MCV)on 01-14-2022 MCV (RBC) [Entitic vol] 89.1 fL 81-99 [facility] Work Phone: Hematocrit Auto (Bld) [Volum e fraction]on 01-14-2022 Hematocrit (Bld) [Volume fraction] 46.8 % 37-47 [facility] Work Phone: Laboratory - Hematology and Cell countson 01-14-2022 Erythrocyte distribution width (RBC) [Entitic vol] 44.2 fL 35.1-43.9 [facility] Work Phone: Erythrocyte distribution width (RBC) [Ratio] 13.5 % 11.6-14.6 [facility] Work Phone: Immature granulocytes/100 WBC (Bld) 0.400 % 0.0-0.9 [facility] Work Phone: Comment on above: IG% - Immature Granu locytes (promyelocytes, myelocytes and metamyelocytes) > 1% indicates that a LEFT SHIFT is Present. MCH (RBC) [Entitic mass] 28.6 pg 27.0-32.0 [facility] Work Phone: Nucleated RBC/100 WBC (Bld) [Ratio] 0 % 0-5 [facility] Work Phone: MCHC Auto (RBC) [Mass/Vol]on 01-14-2022 MCHC (RBC) [Mass/Vol] 32.1 g/dL 32-36 [facility] Work Phone: No Panel Informationon 01-14 [facility] Work Phone: Platelets bldon 01-14-2022 Platelets (Bld) [#/Vol] 224 10*3/uL 150-450 [facility] Work Phone: Absolute lymphocyte counton 12-13-2021 Lymphocytes Auto (Unsp spec) [#/Vol] 2.05 10*3/uL 0.83-4.51 [facility] Work Phone: Basophil percentageon 2021 Basophils/100 WBC (Bld) 0.5 % 0-1 [facility] Work Phone: Eosinophils/100 WBC (Bld) 0.1 % 0-5 [facility] Work Phone: Neutrophils (Bld) [#/Vol] 4.8 10*3/uL 2.0-7.7 [facility] Work Phone: Neutrophils/100 WBC (Bld) 64.5 % 47-70 [facility] Work Phone: WBC (Bld) [#/Vol] 7.4 10*3/uL 4.4-11.0 [facility] Work Phone: Blood erythrocytes count (nu mber/volume)on 12-13-2021 RBC (Bld) [#/Vol] 4.90 10*6/uL 4.2-5.4 [facility] Work Phone: Blood hemoglobin measurement (mass/volume)on 12-13-2021 Hemoglobin (Bld) [Mass/Vol] 14.6 g/dL 12.0-15.0 [facility] Work Phone: Blood lymphocytes/100 leukoc yteson 12-13-2021 Lymphocytes/100 WBC (Bld) 27.6 % 19-41 [facility] Work Phone: Blood monocytes/100 leukocyt eson 12-13-2021 Monocytes/100 WBC (Bld) 6.9 % 0-10 [facility] Work Phone: Blood platelet mean volumeon 12-13-2021 Platelet mean volume (Bld) [Entitic vol] 12.2 fL 6.2-12.0 [facility] Work Phone: Determination of erythrocyte mean corpuscular volume (MCV)on 12-13-2021 MCV (RBC) [Entitic vol] 91.0 fL 81-99 [facility] Work Phone: Hematocrit Auto (Bld) [Volum e fraction]on 12-13-2021 Hematocrit (Bld) [Volume fraction] 44.6 % 37-47 [facility] Work Phone: Laboratory - Hematology and Cell countson 12-13-2021 Erythrocyte distribution width (RBC) [Entitic vol] 45.6 fL 35.1-43.9 [facility] Work Phone: Erythrocyte distribution width (RBC) [Ratio] 13.6 % 11.6-14.6 [facility] Work Phone: Immature granulocytes/100 WBC (Bld) 0.400 % 0.0-0.9 [facility] Work Phone: Comment on above: IG% - Immature Granu locytes (promyelocytes, myelocytes and metamyelocytes) > 1% indicates that a LEFT SHIFT is Present. MCH (RBC) [Entitic mass] 29.8 pg 27.0-32.0 [facility] Work Phone: Nucleated RBC/100 WBC (Bld) [Ratio] 0 % 0-5 [facility] Work Phone: MCHC Auto (RBC) [Mass/Vol]on 12-13-2021 MCHC (RBC) [Mass/Vol] 32.7 g/dL 32-36 [facility] Work Phone: No Panel Informationon 12-13 [facility]active Lymph[facility] Work Phone: Platelets bldon 12-13-2021 Platelets (Bld) [#/Vol] 193 10*3/uL 150-450 [facility] Work Phone: Absolute lymphocyte counton 11-20-2021 Lymphocytes Auto (Unsp spec) [#/Vol] 2.28 10*3/uL 0.83-4.51 [facility] Work Phone: Basophil percentageon 2021 Basophils/100 WBC (Bld) 0.7 % 0-1 [facility] Work Phone: Eosinophils/100 WBC (Bld) 0.2 % 0-5 [facility] Work Phone: Neutrophils (Bld) [#/Vol] 6.6 10*3/uL 2.0-7.7 [facility] Work Phone: Neutrophils/100 WBC (Bld) 69.0 % 47-70 [facility] Work Phone: WBC (Bld) [#/Vol] 9.6 10*3/uL 4.4-11.0 [facility] Work Phone: Blood erythrocytes count (nu mber/volume)on 11-20-2021 RBC (Bld) [#/Vol] 5.04 10*6/uL 4.2-5.4 [facility] Work Phone: Blood hemoglobin measurement (mass/volume)on 11-20-2021 Hemoglobin (Bld) [Mass/Vol] 14.7 g/dL 12.0-15.0 [facility] Work Phone: Blood lymphocytes/100 leukoc yteson 11-20-2021 Lymphocytes/100 WBC (Bld) 23.7 % 19-41 [facility] Work Phone: Blood monocytes/100 leukocyt eson 11-20-2021 Monocytes/100 WBC (Bld) 6.1 % 0-10 [facility] Work Phone: Blood platelet mean volumeon 11-20-2021 Platelet mean volume (Bld) [Entitic vol] 9.9 fL 6.2-12.0 [facility] Work Phone: Determination of erythrocyte mean corpuscular volume (MCV)on 11-20-2021 MCV (RBC) [Entitic vol] 91.1 fL 81-99 [facility] Work Phone: Hematocrit Auto (Bld) [Volum e fraction]on 11-20-2021 Hematocrit (Bld) [Volume fraction] 45.9 % 37-47 [facility] Work Phone: Laboratory - Hematology and Cell countson 11-20-2021 Erythrocyte distribution width (RBC) [Entitic vol] 46.8 fL 35.1-43.9 [facility] Work Phone: Erythrocyte distribution width (RBC) [Ratio] 14.0 % 11.6-14.6 [facility] Work Phone: Immature granulocytes/100 WBC (Bld) 0.300 % 0.0-0.9 [facility] Work Phone: Comment on above: IG% - Immature Granu locytes (promyelocytes, myelocytes and metamyelocytes) > 1% indicates that a LEFT SHIFT is Present. MCH (RBC) [Entitic mass] 29.2 pg 27.0-32.0 [facility] Work Phone: Nucleated RBC/100 WBC (Bld) [Ratio] 0 % 0-5 [facility] Work Phone: MCHC Auto (RBC) [Mass/Vol]on 11-20-2021 MCHC (RBC) [Mass/Vol] 32.0 g/dL 32-36 [facility] Work Phone: No Panel Informationon 11-20 Reactive Lymphocytes RARE [facility] Work Phone: Platelets bldon 11-20-2021 Platelets (Bld) [#/Vol] 227 10*3/uL 150-450 [facility] Work Phone: Absolute lymphocyte counton 10-16-2021 Lymphocytes Auto (Unsp spec) [#/Vol] 2.02 10*3/uL 0.83-4.51 [facility] Work Phone: Basophil percentageon 2021 Ammonia (P) [Moles/Vol] 22.0 umol/L 11-32 [facility] Work Phone: Comment on above: Slight Lipemia, Resu lt may be falsely increased. Basophils/100 WBC (Bld) 0.6 % 0-1 [facility] Work Phone: Eosinophils/100 WBC (Bld) 0.1 % 0-5 [facility] Work Phone: Neutrophils (Bld) [#/Vol] 6.2 10*3/uL 2.0-7.7 [facility] Work Phone: Neutrophils/100 WBC (Bld) 70.6 % 47-70 [facility] Work Phone: WBC (Bld) [#/Vol] 8.8 10*3/uL 4.4-11.0 [facility] Work Phone: [phone] Blood erythrocytes count (nu mber/volume)on 10-16-2021 RBC (Bld) [#/Vol] 4.93 10*6/uL 4.2-5.4 [facility] Work Phone: Blood hemoglobin measurement (mass/volume)on 10-16-2021 Hemoglobin (Bld) [Mass/Vol] 14.2 g/dL 12.0-15.0 [facility] Work Phone: Blood lymphocytes/100 leukoc yteson 10-16-2021 Lymphocytes/100 WBC (Bld) 23.1 % 19-41 [facility] Work Phone: Blood monocytes/100 leukocyt eson 10-16-2021 Monocytes/100 WBC (Bld) 5.1 % 0-10 [facility] Work Phone: Blood platelet mean volumeon 10-16-2021 Platelet mean volume (Bld) [Entitic vol] 9.6 fL 6.2-12.0 [facility] Work Phone: Determination of erythrocyte mean corpuscular volume (MCV)on 10-16-2021 MCV (RBC) [Entitic vol] 89.7 fL 81-99 [facility] Work Phone: Hematocrit Auto (Bld) [Volum e fraction]on 10-16-2021 Hematocrit (Bld) [Volume fraction] 44.2 % 37-47 [facility] Work Phone: Laboratory - Hematology and Cell countson 10-16-2021 Erythrocyte distribution width (RBC) [Entitic vol] 44.6 fL 35.1-43.9 [facility] Work Phone: [phone] Erythrocyte distribution width (RBC) [Ratio] 13.7 % 11.6-14.6 [facility] Work Phone: Immature granulocytes/100 WBC (Bld) 0.500 % 0.0-0.9 [facility] Work Phone: Comment on above: IG% - Immature Granu locytes (promyelocytes, myelocytes and metamyelocytes) > 1% indicates that a LEFT SHIFT is Present. MCH (RBC) [Entitic mass] 28.8 pg 27.0-32.0 [facility] Work Phone: Nucleated RBC/100 WBC (Bld) [Ratio] 0 % 0-5 [facility] Work Phone: MCHC Auto (RBC) [Mass/Vol]on 10-16-2021 MCHC (RBC) [Mass/Vol] 32.1 g/dL 32-36 [facility] Work Phone: Platelets bldon 10-16-2021 Platelets (Bld) [#/Vol] 226 10*3/uL 150-450 [facility] Work Phone: [phone] Absolute lymphocyte counton 09-24-2021 Lymphocytes Auto (Unsp spec) [#/Vol] 2.52 10*3/uL 0.83-4.51 [facility] Work Phone: Basophil percentageon 2020 Eosinophils/100 WBC (Bld) 0.2 % 0-5 [facility] Work Phone: [phone] Neutrophils (Bld) [#/Vol] 6.5 10*3/uL 2.0-7.7 [facility] Work Phone: [phone] WBC (Bld) [#/Vol] 9.6 10*3/uL 4.4-11.0 [facility] Work Phone: Blood erythrocytes count (nu mber/volume)on 09-24-2021 RBC (Bld) [#/Vol] 4.89 10*6/uL 4.2-5.4 [facility] Work Phone: Blood hemoglobin measurement (mass/volume)on 09-24-2021 Hemoglobin (Bld) [Mass/Vol] 14.4 g/dL 12.0-15.0 [facility] Work Phone: Blood lymphocytes/100 leukoc yteson 09-24-2021 Lymphocytes/100 WBC (Bld) 26.2 % 19-41 [facility] Work Phone: Blood monocytes/100 leukocyt eson 09-24-2021 Monocytes/100 WBC (Bld) 4.7 % 0-10 [facility] Work Phone: Blood platelet mean volumeon 09-24-2021 Platelet mean volume (Bld) [Entitic vol] 12.3 fL 6.2-12.0 [facility] Work Phone: Determination of erythrocyte mean corpuscular volume (MCV)on 09-24-2021 MCV (RBC) [Entitic vol] 90.2 fL 81-99 [facility] Work Phone: Hematocrit Auto (Bld) [Volum e fraction]on 09-24-2021 Hematocrit (Bld) [Volume fraction] 44.1 % 37-47 [facility] Work Phone: Laboratory - Hematology and Cell countson 09-24-2021 Basophils/100 WBC (Unsp spec) 0.5 % 0-1 [facility] Work Phone: Erythrocyte distribution width (RBC) [Entitic vol] 46.2 fL 35.1-43.9 [facility] Work Phone: Erythrocyte distribution width (RBC) [Ratio] 14.0 % 11.6-14.6 [facility] Work Phone: Immature granulocytes/100 WBC (Bld) 0.500 % 0.0-0.9 [facility] Work Phone: Comment on above: IG% - Immature Granu locytes (promyelocytes, myelocytes and metamyelocytes) > 1% indicates that a LEFT SHIFT is Present. MCH (RBC) [Entitic mass] 29.4 pg 27.0-32.0 [facility] Work Phone: Neutrophils/100 WBC (Bld) 67.9 % 47-70 [facility] Work Phone: Nucleated RBC/100 WBC (Bld) [Ratio] 0 % 0-5 [facility] Work Phone: MCHC Auto (RBC) [Mass/Vol]on 09-24-2021 MCHC (RBC) [Mass/Vol] 32.7 g/dL 32-36 [facility] Work Phone: Platelets bldon 09-24-2021 Platelets (Bld) [#/Vol] 179 10*3/uL 150-450 [facility] Work Phone: CT BRAIN WO IVCONon 07-19-[address] BRAIN WO IVCON * * *Final Report* * * DATE OF EXAM: Jul 19 2021 4:54PM [facility] [id number] - CT BRAIN WO IVCON / PROCEDURE REASON: multiple diagnoses * * * * Physician Interpretation * * * * EXAMINATION: CT BRAIN WO IVCON CLINICAL HISTORY: Behavioral changes. Altered mental status. Unclear cause. TECHNIQUE: Serial axial images without IV contrast were obtained from the vertex to the foramen magnum. MQ: [id number] CT Radiation dose: Integrated Dose-Length Product (DLP) for this visit = 882.80 mGy*cm CT Dose Reduction Employed: No dose reduction techniques were required COMPARISON: None. RESULT: Paper Bag Inspector (topogram) images: No additional findings. Post-operative change: None. Acute change: No evidence of an acute infarct or other acute parenchymal process. Hemorrhage: No evidence of acute intracranial hemorrhage. ECASS hemorrhagic transformation score: Not Applicable Mass Lesion / Mass Effect: There is no evidence of an intracranial mass or extraaxial fluid collection. No significant mass effect. Chronic change: Scattered patchy foci of low attenuation are present within supratentorial white matter which is a nonspecific finding but likely represents mild microvascular ischemia. Parenchyma: There is mild generalized volume loss. The brain parenchyma is otherwise within normal limits for age. Ventricles: The ventricles are within normal limits of size and configuration for age. Paranasal sinuses and skull base: The visualized paranasal sinuses are grossly clear. The skull base and imaged soft tissues are unremarkable. IMPRESSION: 1. No CT evidence of acute intracranial abnormalities. Follow-up MRI brain may be obtained, as clinically warranted. 2. Chronic changes, as detailed above. 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 Transcribe Date/Time: Jul 19 2021 5:08P Dictated by : CHAPARRITA STRINGER MD This examination was interpreted and the report reviewed and electronically signed by: CHAPARRITA STRINGER MD on Jul 19 2021 5:14PM EST [id number] Normal [facility] XR Chest PA and Lateralon IMPRESSION: No acute radiographic abnormality. 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 Transcribe Date/Time: Jul 19 2021 3:33P Dictated by : OMAR DAILEY MD This examination was interpreted and the report reviewed and electronically signed by: OMAR DAILEY MD on Jul 19 2021 3:33PM EST DIVISION OF RADIOLOGY * * *Final Report* * * DATE OF EXAM: Jul 19 2021 3:12PM WOX [id number] - XR CHEST 2V FRONTAL/LAT / PROCEDURE REASON: multiple diagnoses * * * * Physician Interpretation * * * * EXAMINATION: CHEST RADIOGRAPH (2 VIEW FRONTAL & LATERAL) CLINICAL HISTORY: Behavioral change Altered mental status, unspecified altered mental status type MQ: XC2_6 EXAM DATE/TIME: 07/19/2021 3:12 PM COMPARISON: 10/18/2020 RESULT: Lines, tubes, and devices: None. Lungs and pleura: No consolidation. No lung mass. No pleural effusion. No pneumothorax. Cardiomediastinal silhouette: Normal cardiomediastinal silhouette. Bones and soft tissues: Degenerative changes are present within the thoracic spine. DIVISION OF RADIOLOGY Provider, [facility] - 07/19/2021 * * *Final Report* * * DATE OF EXAM: Jul 19 2021 3:12PM WOX 5291 - XR CHEST 2V FRONTAL/LAT / PROCEDURE REASON: multiple diagnoses * * * * Physician Interpretation * * * * EXAMINATION: CHEST RADIOGRAPH (2 VIEW FRONTAL & LATERAL) CLINICAL HISTORY: Behavioral change Altered mental status, unspecified altered mental status type MQ: XC2_6 EXAM DATE/TIME: 07/19/2021 3:12 PM COMPARISON: 10/18/2020 RESULT: Lines, tubes, and devices: None. Lungs and pleura: No consolidation. No lung mass. No pleural effusion. No pneumothorax. Cardiomediastinal silhouette: Normal cardiomediastinal silhouette. Bones and soft tissues: Degenerative changes are present within the thoracic spine. IMPRESSION IMPRESSION: No acute radiographic abnormality. 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 Transcribe Date/Time: Jul 19 2021 3:33P Dictated by : OMAR DAILEY MD This examination was interpreted and the report reviewed and electronically signed by: OMAR DAILEY MD on Jul 19 2021 3:33PM [facility] [facility] (narrative) [facility] XR Chest PA and LateralOrder ed By: [facility] Provider on 07-19-2021 [facility] XR Chest PA and Lateralon IMPRESSION: No new or acute radiographic abnormality. Mild areas of scarring or atelectasis are less prominent than previously. Punchboard Filling Machine Operator: PSCB Transcribe Date/Time: Oct 18 2020 9:56A Dictated by : SEGUNDO MOORE MD This examination was interpreted and the report reviewed and electronically signed by: SEGUNDO MOORE MD on Oct 18 2020 9:59AM [facility] DIVISION OF RADIOLOGY * * *Final Report* * * DATE OF EXAM: Oct 18 2020 9:54AM WOX 5291 - XR CHEST 2V FRONTAL/LAT / PROCEDURE REASON: multiple diagnoses * * * * Physician Interpretation * * * * EXAMINATION: XR CHEST 2V FRONTAL/LAT Clinical History: pt states sick for 2 weeks ocugh, sob,no taste or smell. SOB (shortness of breath) Cough . MQ: XC2_5 Comparison: 08/01/2019 RESULT: Lines, tubes, and devices: none Lungs and pleura: Mild scarring or linear atelectasis in left lower lung is less prominent than previously. Probable mild scarring in right mid lung again seen. No pleural effusion or pneumothorax is identified. Cardiomediastinal silhouette: Normal. Other: - DIVISION OF RADIOLOGY Provider, [facility] - 10/18/2020 * * *Final Report* * * DATE OF EXAM: Oct 18 2020 9:54AM WOX 5291 - XR CHEST 2V FRONTAL/LAT / PROCEDURE REASON: multiple diagnoses * * * * Physician Interpretation * * * * EXAMINATION: XR CHEST 2V FRONTAL/LAT Clinical History: pt states sick for 2 weeks ocugh, sob,no taste or smell. SOB (shortness of breath) Cough . MQ: XC2_5 Comparison: 08/01/2019 RESULT: Lines, tubes, and devices: none Lungs and pleura: Mild scarring or linear atelectasis in left lower lung is less prominent than previously. Probable mild scarring in right mid lung again seen. No pleural effusion or pneumothorax is identified. Cardiomediastinal silhouette: Normal. Other: - IMPRESSION IMPRESSION: No new or acute radiographic abnormality. Mild areas of scarring or atelectasis are less prominent than previously. Punchboard Filling Machine Operator: PSCB Transcribe Date/Time: Oct 18 2020 9:56A Dictated by : SEGUNDO MOORE MD This examination was interpreted and the report reviewed and electronically signed by: SEGUNDO MOORE MD on Oct 18 2020 9:59AM [facility] Radiology Study observation (narrative) [facility] XR Chest PA and LateralOrder ed By: [facility] Provider on 10-18-2020 [facility] COVID-19 virus antigen assay SARS-CoV-2 (COVID-19) Ag IA.rapid Ql (Resp) [facility] Work Phone: Vital Signs Date Time Vital Sign Value Performing Clinician Facility 01-12-2025 10:04-0400 Body mass index (BMI) [Ratio] 35.52 kg/m2 Aleksandar Jones MD Work Phone: [facility] 01-12-2025 10:04-0400 Body weight 85.28 kg Aleksandar Jones MD Work Phone: [facility] 01-12-2025 10:04-0400 Diastolic blood pressure 72 mm[Hg] Aleksandar Jones MD Work Phone: [facility] 01-12-2025 10:04-0400 Heart rate 92 /min Aleksandar Jones MD Work Phone: [facility] 01-12-2025 10:04-0400 SaO2% (BldA) [Mass fraction] 94 % Aleksandar Jones MD Work Phone: [facility] 01-12-2025 10:04-0400 Systolic blood pressure 122 mm[Hg] Aleksandar Jones MD Work Phone: [facility] 12-28-2024 14:58-0400 Body height 154.9 cm Aleksandar Jones MD Work Phone: [facility] 12-28-2024 14:58-0400 Body mass index (BMI) [Ratio] 35.14 kg/m2 Aleksandar Jones MD Work Phone: [facility] 12-28-2024 14:58-0400 Body weight 84.37 kg Aleksandar Jones MD Work Phone: [facility] 12-28-2024 14:58-0400 Diastolic blood pressure 60 mm[Hg] Aleksandar Jones MD Work Phone: [facility] 12-28-2024 14:58-0400 Heart rate 113 /min Aleksandar Jones MD Work Phone: [facility] 12-28-2024 14:58-0400 SaO2% (BldA) [Mass fraction] 92 % Aleksandar Jones MD Work Phone: [facility] 12-28-2024 14:58-0400 Systolic blood pressure 126 mm[Hg] Aleksandar Jones MD Work Phone: [facility] 12-21-2024 12:29-0400 Body temperature 98.9 [degF] Dr. Aleksandar Jones MD Work Phone: [facility] 12-21-2024 12:29-0400 Diastolic blood pressure 99 mm[Hg] Dr. Aleksandar Jones MD Work Phone: [facility] 12-21-2024 12:29-0400 Heart rate 78 /min Dr. Aleksandar Jones MD Work Phone: [facility] 12-21-2024 12:29-0400 Respiratory rate 18 /min Dr. Aleksandar Jones MD Work Phone: [facility] 12-21-2024 12:29-0400 SaO2% (BldA) [Mass fraction] 99 % Dr. Aleksandar Jones MD Work Phone: [facility] 12-21-2024 12:29-0400 Systolic blood pressure 137 mm[Hg] Dr. Aleksandar Jones MD Work Phone: [facility] 12-21-2024 08:44-0400 Body height 154.[address] Aleksandar Jones MD Work Phone: [facility] 12-21-2024 08:44-0400 Body mass index (BMI) [Ratio] 35.7 kg/m2 Dr. Aleksandar Jones MD Work Phone: [facility] 12-21-2024 08:44-0400 Body weight 85.[address] Aleksandar Jones MD Work Phone: [facility] 12-11-2024 04:48-0500 Body mass index (BMI) [Ratio] 36.6 kg/m2 Dr. Aleksandar Jones MD Work Phone: [facility] 12-07-2024 09:58-0500 Diastolic blood pressure 72 mm[Hg] Radha Batista RUBBER C[employer]TER AND SHAPE CARVER.[employer] ATTENDANT Work Phone: [facility] 12-07-2024 09:58-0500 Heart rate 102 /min Radha Batista [employer] C[employer]TER [employer] SHAPE [employer] ATTENDANT Work Phone: [facility] 12-07-2024 09:58-0500 Respiratory rate 18 /min Radha Batista [employer] C[employer] SHAPE [employer]ANNING [employer] ATTENDANT Work Phone: [facility] 12-07-2024 09:58-0500 SaO2% (BldA) [Mass fraction] 92 % Radha Batista [employer] SHAPE [employer]ANNING [employer] ATTENDANT Work Phone: [facility] 12-07-2024 09:58-0500 Systolic blood pressure 108 mm[Hg] Radha Batista RUBB[employer] C[employer]TER [employer] SHAPE [employer]VER.[employer]ANNING [employer] ATTENDANT Work Phone: [facility] 11-13-2024 01:33-0500 Body mass index (BMI) [Ratio] 36.6 kg/m2 Dr. Aleksandar Jones MD Work Phone: 2(622)211-559998 [place] [address] 11-12-2024 13:40-0500 Body temperature 97.6 [degF] Dr. Aleksandar Jones MD Work Phone: 2(109)489-136598 [place] [address] 11-12-2024 13:40-0500 Diastolic blood pressure 75 mm[Hg] Dr. Aleksandar Jones MD Work Phone: 7(243)830-758998 [place] [address] 11-12-2024 13:40-0500 Heart rate 107 /min Dr. Aleksandar Jones MD Work Phone: 3(806)266-714798 [place] [address] 11-12-2024 13:40-0500 Respiratory rate 18 /min Dr. Aleksandar Jones MD Work Phone: 6(734)572-852598 [place] [address] 11-12-2024 13:40-0500 SaO2% (BldA) [Mass fraction] 93 % Dr. Aleksandar Jones MD Work Phone: 9(579)083-245798 [place] [address] 11-12-2024 13:40-0500 Systolic blood pressure 134 mm[Hg] Dr. Aleksandar Jones MD Work Phone: 3(286)281-799398 [place] [address] 11-12-2024 06:00-0500 Body mass index (BMI) [Ratio] 34.3 kg/m2 Dr. Aleksandar Jones MD Work Phone: 4(529)140-335098 [place] [address] 11-12-2024 06:00-0500 Body weight 82.[address] Aleksandar Jones MD Work Phone: [facility] 11-10-2024 07:56-0500 Inhaled oxygen flow rate 2 L/min Dr. Aleksandar Jones MD Work Phone: [facility] 11-09-2024 18:05-0500 Body temperature 99.19 [degF] Zaira Mancilla RU[employer] C[employer]TER [employer] SH[employer] ATTENDANT Work Phone: [facility] 11-09-2024 18:05-0500 Heart rate 115 /min Zaira Mancilla RUBB[employer] C[employer]TER [employer] SHAPE [employer] ATTENDANT Work Phone: [facility] 11-09-2024 18:05-0500 Respiratory rate 32 /min Zaira Mancilla RUBBER C[employer]TER [employer] SHAPE [employer]VER.[employer]ANNING [employer] ATTENDANT Work Phone: [facility] 11-09-2024 18:05-0500 SaO2% (BldA) [Mass fraction] 94 % Zaira Mancilla RUBB[employer] C[employer]TER [employer] SHAPE [employer]VER.[employer]ANNING [employer] ATTENDANT Work Phone: [facility] 11-09-2024 16:56-0500 Body mass index (BMI) [Ratio] 34.42 kg/m2 Zaira Mancilla RUBB[employer] C[employer]TER [employer] SHAPE CAR[employer]ANNING [employer] ATTENDANT Work Phone: [facility] 11-09-2024 16:56-0500 Body weight 84.3 kg Zaira Mancilla RUBBER C[employer]TER [employer] SHAPE [employer]ANNING [employer] ATTENDANT Work Phone: [facility] 11-09-2024 16:56-0500 Diastolic blood pressure 80 mm[Hg] Zaira Mancilla RUBBER C[employer]TER AND SHAPE [employer]ANNING [employer] ATTENDANT Work Phone: [facility] 11-09-2024 16:56-0500 Systolic blood pressure 122 mm[Hg] Zaira Mancilla RUBBER C[employer]TER AND SHAPE CARVER.[employer]ANNING [employer] ATTENDANT Work Phone: [facility] 11-02-2024 13:59-0500 Diastolic blood pressure 76 mm[Hg] Radha Haagen RUBB[employer] C[employer]TER [employer] SHAPE [employer]ANNING [employer] ATTENDANT Work Phone: [facility] 11-02-2024 13:59-0500 Heart rate 110 /min Radha Haagen RU[employer] C[employer] SHAPE [employer]ANNING [employer] ATTENDANT Work Phone: [facility] 11-02-2024 13:59-0500 Respiratory rate 16 /min Radha Batista APRN.[employer]ANNING [employer] ATTENDANT Work Phone: [facility] 11-02-2024 13:59-0500 SaO2% (BldA) [Mass fraction] 93 % Radha Batista RUBB[employer] C[employer] SHAPE [employer]ANNING [employer] ATTENDANT Work Phone: [facility] 11-02-2024 13:59-0500 Systolic blood pressure 128 mm[Hg] Radha Batista RUBBER C[employer]TER [employer] SHAPE [employer]ANNING [employer] ATTENDANT Work Phone: 3(242)225-[address] [place] [address] 10-14-2024 18:59-0500 Body temperature 98.3 [degF] Dr. Aleksandar Jones MD Work Phone: 7(916)770-709998 [place] [address] 10-14-2024 18:59-0500 Diastolic blood pressure 85 mm[Hg] Dr. Aleksandar Jones MD Work Phone: 2(284)662-688198 [place] [address] 10-14-2024 18:59-0500 Heart rate 105 /min Dr. Aleksandar Jones MD Work Phone: 9(805)480-601198 [place] [address] 10-14-2024 18:59-0500 Respiratory rate 18 /min Dr. Aleksandar Jones MD Work Phone: 4(710)969-191598 [place] [address] 10-14-2024 18:59-0500 SaO2% (BldA) [Mass fraction] 94 % Dr. Aleksandar Jones MD Work Phone: 0(214)695-791747 [place] [address] 10-14-2024 18:59-0500 Systolic blood pressure 134 mm[Hg] Dr. Aleksandar Jones MD Work Phone: 2(947)941-856347 [place] [address] 10-13-2024 04:23-0500 Body mass index (BMI) [Ratio] 36.6 kg/m2 Dr. Aleksandar Jones MD Work Phone: 6(577)875-469447 [place] [address] 09-28-2024 12:55-0500 Body mass index (BMI) [Ratio] 34.63 kg/m2 Radha Batista RUBB[employer] C[employer] SH[employer] ATTENDANT Work Phone: [facility] 09-28-2024 12:55-0500 Body weight 84.82 kg Radha Batista RUBBER C[employer]TER [employer] SH[employer] ATTENDANT Work Phone: [facility] 09-28-2024 12:55-0500 Diastolic blood pressure 80 mm[Hg] Radha Haagen RUBBER C[employer]TER [employer] SH[employer]ING [employer] ATTENDANT Work Phone: [facility] 09-28-2024 12:55-0500 Heart rate 99 /min Radha Haagen RU[employer] C[employer] ATTENDANT Work Phone: [facility] 09-28-2024 12:55-0500 Respiratory rate 16 /min Radah Haagen RUBBER C[employer] SHAPE [employer]ANNING [employer] ATTENDANT Work Phone: [facility] 09-28-2024 12:55-0500 SaO2% (BldA) [Mass fraction] 97 % Radha Haagen RUBB[employer] C[employer] SHAPE [employer] ATTENDANT Work Phone: [facility] 09-28-2024 12:55-0500 Systolic blood pressure 124 mm[Hg] Radha Haagen RUBB[employer] C[employer]TER AND SHAPE [employer]VER.[employer] ATTENDANT Work Phone: [facility] 09-20-2024 12:51-0500 Body mass index (BMI) [Ratio] 34.52 kg/m2 Fuentes Renee MD Work Phone: [facility] 09-20-2024 12:51-0500 Body weight 84.55 kg Fuentes Renee MD Work Phone: [facility] 09-20-2024 12:51-0500 Diastolic blood pressure 79 mm[Hg] Fuentes Renee MD Work Phone: [facility] 09-20-2024 12:51-0500 Heart rate 104 /min Fuentes Renee MD Work Phone: [facility] 09-20-2024 12:51-0500 SaO2% (BldA) [Mass fraction] 92 % Fuentes Renee MD Work Phone: [facility] 09-20-2024 12:51-0500 Systolic blood pressure 126 mm[Hg] Fuentes Renee MD Work Phone: [facility] 09-11-2024 23:34-0500 Body mass index (BMI) [Ratio] 36.6 kg/m2 Dr. Aleksandar Jones MD Work Phone: [facility] 09-08-2024 09:06-0500 Diastolic blood pressure 60 mm[Hg] Radha Haagen RUBB[employer] C[employer]TER AND SHAPE CARVER.[employer] ATTENDANT Work Phone: [facility] 09-08-2024 09:06-0500 Heart rate 94 /min Radha Haagen RUBB[employer] C[employer] SHAPE [employer] ATTENDANT Work Phone: [facility] 09-08-2024 09:06-0500 Respiratory rate 16 /min Radha Haagen RUBB[employer] C[employer]TER AND SHAPE [employer] ATTENDANT Work Phone: [facility] 09-08-2024 09:06-0500 SaO2% (BldA) [Mass fraction] 94 % Radha Haagen RU[employer] C[employer] SH[employer] ATTENDANT Work Phone: [facility] 09-08-2024 09:06-0500 Systolic blood pressure 122 mm[Hg] Radha Haagen RUBB[employer] C[employer]TER AND SHAPE [employer] ATTENDANT Work Phone: [facility] 08-24-2024 15:05-0500 Body mass index (BMI) [Ratio] 34.82 kg/m2 Shelia Suppan RUBB[employer] SH[employer] ATTENDANT Work Phone: [facility] 08-24-2024 15:05-0500 Body temperature 97.5 [degF] Shelia Suppan RUBB[employer] C[employer] ATTENDANT Work Phone: [facility] 08-24-2024 15:05-0500 Body weight 85.28 kg Shelia Suppan RUBB[employer] C[employer] SHAPE [employer] ATTENDANT Work Phone: [facility] 08-24-2024 15:05-0500 Diastolic blood pressure 64 mm[Hg] Shelia Suppan RUBBER C[employer]APE [employer]ANNING [employer] ATTENDANT Work Phone: [facility] 08-24-2024 15:05-0500 Heart rate 109 /min Shelia Suppan RUBBER C[employer] SHAPE [employer] ATTENDANT Work Phone: [facility] 08-24-2024 15:05-0500 Respiratory rate 24 /min Shelia Suppan RUBB[employer] C[employer] SHAPE [employer] ATTENDANT Work Phone: [facility] 08-24-2024 15:05-0500 SaO2% (BldA) [Mass fraction] 94 % Shelia Suppan RU[employer] C[employer] SH[employer] ATTENDANT Work Phone: [facility] 08-24-2024 15:05-0500 Systolic blood pressure 132 mm[Hg] Shelia Salmon RU[employer] SHAPE [employer] ATTENDANT Work Phone: [facility] 08-12-2024 20:47-0400 Body mass index (BMI) [Ratio] 36.6 kg/m2 Dr. Aleksandar Jones MD Work Phone: [facility] 07-23-2024 08:43-0400 Body mass index (BMI) [Ratio] 34.3 kg/m2 Adriano Menezes RUBB[employer] SH[employer] ATTENDANT Work Phone: [facility] 07-23-2024 08:43-0400 Body temperature 97 [degF] Adriano Menezes RUBB[employer] C[employer] SHAPE [employer] ATTENDANT Work Phone: [facility] 07-23-2024 08:43-0400 Body weight 84 kg Adriano Menezes RU[employer] C[employer] ATTENDANT Work Phone: [facility] 07-23-2024 08:43-0400 Diastolic blood pressure 67 mm[Hg] Adriano Menezes RUBB[employer] C[employer] SH[employer] ATTENDANT Work Phone: [facility] 07-23-2024 08:43-0400 Heart rate 93 /min Adriano Menezes RU[employer] C[employer] ATTENDANT Work Phone: [facility] 07-23-2024 08:43-0400 Respiratory rate 22 /min Adriano Menezes RUBBER C[employer] AND SHAPE [employer] ATTENDANT Work Phone: [facility] 07-23-2024 08:43-0400 SaO2% (BldA) [Mass fraction] 96 % Adriano Menezes RUBB[employer] C[employer] SHAPE [employer] ATTENDANT Work Phone: [facility] 07-23-2024 08:43-0400 Systolic blood pressure 100 mm[Hg] Adriano Menezes RUBB[employer] C[employer] AND SHAPE [employer] ATTENDANT Work Phone: [facility] 07-06-2024 14:23-0400 Body mass index (BMI) [Ratio] 34.45 kg/m2 Radha Batista RU[employer] C[employer] SH[employer] ATTENDANT Work Phone: [facility] 07-06-2024 14:23-0400 Body weight 84.37 kg Radha Haagen RU[employer] C[employer] ATTENDANT Work Phone: [facility] 07-06-2024 14:23-0400 Diastolic blood pressure 82 mm[Hg] Radha Haagen RUBB[employer] C[employer] ATTENDANT Work Phone: [facility] 07-06-2024 14:23-0400 Heart rate 108 /min Radha Haagen RU[employer] C[employer]ING [employer] ATTENDANT Work Phone: [facility] 07-06-2024 14:23-0400 Respiratory rate 16 /min Radha Haagen RU[employer] C[employer] ATTENDANT Work Phone: [facility] 07-06-2024 14:23-0400 SaO2% (BldA) [Mass fraction] 91 % Radha Haagen RU[employer] ATTENDANT Work Phone: [facility] 07-06-2024 14:23-0400 Systolic blood pressure 132 mm[Hg] Radha Haagen RUBB[employer] C[employer]APE [employer] ATTENDANT Work Phone: [facility] 04-14-2024 12:59-0400 Diastolic blood pressure 70 mm[Hg] Radha Haagen RUBBER C[employer] AND [employer] ATTENDANT Work Phone: [facility] 04-14-2024 12:59-0400 Heart rate 110 /min Radha Haagen RUBBER C[employer] SHAPE [employer]ING [employer] ATTENDANT Work Phone: [facility] 04-14-2024 12:59-0400 Respiratory rate 16 /min Radha Haagen RUBBER C[employer] SHAPE [employer] ATTENDANT Work Phone: [facility] 04-14-2024 12:59-0400 SaO2% (BldA) [Mass fraction] 93 % Radha Haagen RU[employer] C[employer] SH[employer]ING [employer] ATTENDANT Work Phone: [facility] 04-14-2024 12:59-0400 Systolic blood pressure 118 mm[Hg] Radha Haagen RUBBER C[employer] AND SHAPE [employer] ATTENDANT Work Phone: [facility] 03-30-2024 08:52-0400 Body height 156.5 cm Radha Haagen RU[employer] C[employer] SH[employer] ATTENDANT Work Phone: [facility] 03-30-2024 08:52-0400 Body mass index (BMI) [Ratio] 33.71 kg/m2 Radha Haagen RUBB[employer] C[employer] SH[employer] ATTENDANT Work Phone: [facility] 03-30-2024 08:52-0400 Body weight 82.56 kg Radha Haagen RUBB[employer] C[employer] ATTENDANT Work Phone: [facility] 03-30-2024 08:52-0400 Diastolic blood pressure 72 mm[Hg] Radha Haagen RUBBER C[employer] AND SHAPE [employer] ATTENDANT Work Phone: [facility] 03-30-2024 08:52-0400 Heart rate 91 /min Radha Haagen RU[employer] C[employer] ATTENDANT Work Phone: [facility] 03-30-2024 08:52-0400 Respiratory rate 16 /min Radha Haagen RUBB[employer] C[employer] ATTENDANT Work Phone: [facility] 03-30-2024 08:52-0400 SaO2% (BldA) [Mass fraction] 96 % Radha Haagen RU[employer] C[employer] AND SH[employer] ATTENDANT Work Phone: [facility] 03-30-2024 08:52-0400 Systolic blood pressure 108 mm[Hg] Radha Haagen RUBBER C[employer] AND SH[employer] ATTENDANT Work Phone: [facility] 03-19-2024 08:47-0400 Diastolic blood pressure 80 mm[Hg] Radha Haagen RUBBER C[employer] AND [employer] ATTENDANT Work Phone: [facility] 03-19-2024 08:47-0400 Heart rate 98 /min Radha Haagen RUBBER C[employer] AND SHAPE [employer]ING [employer] ATTENDANT Work Phone: [facility] 03-19-2024 08:47-0400 Respiratory rate 16 /min Radha Haagen RUBBER C[employer] AND SHAPE [employer] ATTENDANT Work Phone: [facility] 03-19-2024 08:47-0400 SaO2% (BldA) [Mass fraction] 91 % Radha Haagen RUBB[employer] C[employer] AND SH[employer] ATTENDANT Work Phone: [facility] 03-19-2024 08:47-0400 Systolic blood pressure 126 mm[Hg] Radha Haagen RUBB[employer] C[employer] AND [employer] ATTENDANT Work Phone: [facility] 03-02-2024 08:50-0400 Body mass index (BMI) [Ratio] 34.01 kg/m2 Radha Haagen RU[employer] ATTENDANT Work Phone: [facility] 03-02-2024 08:50-0400 Body weight 81.65 kg Radha Dacostaagen RUBBER C[employer]APE [employer] ATTENDANT Work Phone: [facility] 03-02-2024 08:50-0400 Diastolic blood pressure 70 mm[Hg] Radha Haagen RUBBER C[employer] ATTENDANT Work Phone: [facility] 03-02-2024 08:50-0400 Heart rate 93 /min Radha Haagen RUBBER C[employer]TER AND SHAPE [employer] ATTENDANT Work Phone: [facility] 03-02-2024 08:50-0400 Respiratory rate 16 /min Radha Dacostaagen RUBBER C[employer]TER AND SHAPE [employer] ATTENDANT Work Phone: [facility] 03-02-2024 08:50-0400 SaO2% (BldA) [Mass fraction] 92 % Radha Batista RU[employer] C[employer] SHAPE [employer] ATTENDANT Work Phone: [facility] 03-02-2024 08:50-0400 Systolic blood pressure 108 mm[Hg] Radha Haagen RUBBER C[employer] AND [employer] ATTENDANT Work Phone: [facility] 02-05-2024 08:00-0400 Diastolic blood pressure 72 mm[Hg] Jaci Kashuba SHEET METAL APPRENTICE Work Phone: [facility] 02-05-2024 08:00-0400 Heart rate 95 /min Jaci Kashuba SHEET METAL APPRENTICE Work Phone: [facility] 02-05-2024 08:00-0400 SaO2% (BldA) [Mass fraction] 94 % Jaci Kashuba SHEET METAL APPRENTICE Work Phone: [facility] Comment on above: increased to 97 with instruction for vicente p breathing 02-05-2024 08:00-0400 Systolic blood pressure 113 mm[Hg] Jaci Kashuba SHEET METAL APPRENTICE Work Phone: [facility] 01-21-2024 11:00-0400 Diastolic blood pressure 78 mm[Hg] Gerardo Golias PT Work Phone: [facility] 01-21-2024 11:00-0400 Heart rate 98 /min Gerardo Golias PT Work Phone: [facility] 01-21-2024 11:00-0400 Systolic blood pressure 118 mm[Hg] Gerardo Golias PT Work Phone: [facility] 01-13-2024 09:07-0400 Body weight 82.56 kg Radha Batista RU[employer] ATTENDANT Work Phone: [facility] 01-13-2024 09:07-0400 Diastolic blood pressure 80 mm[Hg] Radha Batista RUBBER C[employer]TER AND SH[employer] ATTENDANT Work Phone: [facility] 01-13-2024 09:07-0400 Heart rate 89 /min Radha Batista RUBBER C[employer] AND SHAPE [employer] ATTENDANT Work Phone: [facility] 01-13-2024 09:07-0400 Respiratory rate 16 /min Radha Batista RUBBER C[employer] AND [employer] ATTENDANT Work Phone: [facility] 01-13-2024 09:07-0400 SaO2% (BldA) [Mass fraction] 97 % Radha Batista RUBBER C[employer] AND SHAPE [employer] ATTENDANT Work Phone: [facility] 01-13-2024 09:07-0400 Systolic blood pressure 110 mm[Hg] Radha Batista RUBBER C[employer] AND SHAPE [employer] ATTENDANT Work Phone: [facility] 01-10-2024 22:32-0400 Body mass index (BMI) [Ratio] 36.6 kg/m2 [facility] 12-13-2023 23:59-0500 Body temperature 98 [degF] Dr. Aleksandar Jones Work Phone: [facility] 12-13-2023 23:59-0500 Diastolic blood pressure 68 mm[Hg] Dr. Aleksandar Jones Work Phone: [facility] 12-13-2023 23:59-0500 Heart rate 88 /min Dr. Aleksandar Jones Work Phone: [facility] 12-13-2023 23:59-0500 Respiratory rate 16 /min Dr. Aleksandar Jones Work Phone: [facility] 12-13-2023 23:59-0500 SaO2% (BldA) [Mass fraction] 97 % Dr. Aleksandar Jones Work Phone: [facility] 12-13-2023 23:59-0500 Systolic blood pressure 112 mm[Hg] Dr. Aleksandar Jones Work Phone: [facility] 12-13-2023 18:09-0500 Body height 154.[address] Aleksandar Jones Work Phone: [facility] 12-13-2023 18:09-0500 Body mass index (BMI) [Ratio] 33.4 kg/m2 Dr. Aleksandar Jones Work [facility] [facility] 12-13-2023 18:09-0500 Body weight 80.[address] Aleksandar Jones Work Phone: [facility] 12-11-2023 23:05-0500 Body mass index (BMI) [Ratio] 36.6 kg/m2 [facility] 11-12-2023 22:38-0500 Body mass index (BMI) [Ratio] 36.6 kg/m2 Dr. Aleksandar Jones Work Phone: [facility] 10-12-2023 20:50-0500 Body mass index (BMI) [Ratio] 36.6 kg/m2 Dr. Aleksandar Jones Work Phone: [facility] 09-22-2023 15:48-0500 Body weight 78.93 kg Fuentes Renee MD Work Phone: [facility] 09-22-2023 15:48-0500 Diastolic blood pressure 76 mm[Hg] Fuentes Renee MD Work Phone: [facility] 09-22-2023 15:48-0500 Heart rate 114 /min Fuentes eRnee MD Work Phone: [facility] 09-22-2023 15:48-0500 SaO2% (BldA) [Mass fraction] 96 % Fuentes Renee MD Work Phone: [facility] 09-22-2023 15:48-0500 Systolic blood pressure 118 mm[Hg] Fuentes Renee MD Work Phone: [facility] 09-12-2023 03:19-0500 Body mass index (BMI) [Ratio] 36.6 kg/m2 Dr. Aleksandar Jones Work Phone: [facility] 08-29-2023 15:12-0500 Body height 154.9 cm Alma Corea [employer] Work Phone: [facility] 08-29-2023 15:12-0500 Body weight 78.93 kg Alma Rox [employer] ATTENDANT Work Phone: [facility] 08-29-2023 15:12-0500 Diastolic blood pressure 72 mm[Hg] Alma Corea [employer] ATTENDANT Work Phone: [facility] 08-29-2023 15:12-0500 Systolic blood pressure 118 mm[Hg] Alma Rox [employer] ATTENDANT Work Phone: [facility] 08-16-2023 13:15-0400 Body temperature 98 [degF] Dr. Aleksandar Jones Work Phone: [facility] 08-16-2023 13:15-0400 Diastolic blood pressure 73 mm[Hg] Dr. Aleksandar Jones Work Phone: [facility] 08-16-2023 13:15-0400 Heart rate 96 /min Dr. Aleksandar Jones Work Phone: [facility] 08-16-2023 13:15-0400 Respiratory rate 16 /min Dr. Aleksandar Jones Work Phone: [facility] 08-16-2023 13:15-0400 SaO2% (BldA) [Mass fraction] 94 % Dr. Aleksandar Jones Work Phone: [facility] 08-16-2023 13:15-0400 Systolic blood pressure 111 mm[Hg] Dr. Aleksandar Jones Work Phone: 2(731)[phone] [place] [address] 08-16-2023 12:44-0400 Inhaled oxygen flow rate 0 L/min Dr. Aleksandar Jones Work Phone: 3(097)[phone] [place] [address] 08-16-2023 04:16-0400 Body mass index (BMI) [Ratio] 31.6 kg/m2 Dr. Aleksandar Jones Work Phone: 5(921)[phone] [place] [address] 08-16-2023 04:16-0400 Body weight [address] Aleksandar Jones Work Phone: 3(390)237-742398 [place] [address] 08-15-2023 12:03-0400 Body height 154.[address] Aleksandar Jones Work Phone: 1(005)[phone] [place] [address] 08-14-2023 23:25-0400 Diastolic blood pressure 77 mm[Hg] Dr. Aleksandar Jones Work Phone: 0(448)[phone] [place] [address] 08-14-2023 23:25-0400 Heart rate 97 /min Dr. Aleksandar Jones Work Phone: 3(569)[phone] [place] [address] 08-14-2023 23:25-0400 Respiratory rate 26 /min Dr. Aleksandar Jones Work Phone: 0(848)[phone] [place] [address] 08-14-2023 23:25-0400 SaO2% (BldA) [Mass fraction] 94 % Dr. Aleksandar Jones Work Phone: 5(130)[phone] [place] [address] 08-14-2023 23:25-0400 Systolic blood pressure 110 mm[Hg] Dr. Aleksandar Jones Work Phone: 2(743)[phone] [place] [address] 08-14-2023 22:19-0400 Inhaled oxygen flow rate 2 L/min Dr. Aleksandar Jones Work Phone: 9(764)[phone] [place] [address] 08-14-2023 17:06-0400 Body temperature 97.4 [degF] Dr. Aleksandar Jones Work Phone: 9(545)[phone] [place] [address] 08-14-2023 17:02-0400 Body height 154.[address] Aleksandar Jones Work Phone: 2(535)[phone] [place] [address] 08-14-2023 17:02-0400 Body mass index (BMI) [Ratio] 33.5 kg/m2 Dr. Aleksandar Jones Work Phone: [facility] 08-14-2023 17:02-0400 Body weight 80.[address] Aleksandar Jones Work Phone: [facility] 08-12-2023 22:56-0400 Body mass index (BMI) [Ratio] 36.6 kg/m2 Dr. Aleksandar Jones Work Phone: [facility] 07-13-2023 02:43-0400 Body mass index (BMI) [Ratio] 36.6 kg/m2 Dr. Aleksandar Jones Work Phone: [facility] 06-12-2023 22:53-0400 Body mass index (BMI) [Ratio] 36.6 kg/m2 [facility] 05-13-2023 00:41-0400 Body mass index (BMI) [Ratio] 36.6 kg/m2 [facility] 04-29-2023 14:31-0400 Body weight 78.02 kg Radha Batista [employer] Work Phone: [facility] 04-29-2023 14:31-0400 Diastolic blood pressure 82 mm[Hg] Radha Batista [employer] ATT[employer] Work Phone: [facility] 04-29-2023 14:31-0400 Heart rate 109 /min Radha Batista [employer] ATTENDANT Work Phone: [facility] 04-29-2023 14:31-0400 Respiratory rate 16 /min Radha Batista [employer] ATTEND[employer] Work Phone: [facility] 04-29-2023 14:31-0400 SaO2% (BldA) [Mass fraction] 92 % Radha Batista [employer] ATTEND[employer] Work Phone: [facility] 04-29-2023 14:31-0400 Systolic blood pressure 124 mm[Hg] Radha Batista [employer] ATTEND[employer] Work Phone: [facility] 04-11-2023 22:19-0400 Body mass index (BMI) [Ratio] 36.6 kg/m2 [facility] 03-13-2023 09:37-0400 Body mass index (BMI) [Ratio] 36.6 kg/m2 [facility] 02-09-2023 01:19-0400 Body mass index (BMI) [Ratio] 36.6 kg/m2 [facility] 01-11-2023 00:24-0400 Body mass index (BMI) [Ratio] 36.6 kg/m2 [facility] 12-10-2022 22:30-0500 Body mass index (BMI) [Ratio] 36.6 kg/m2 [facility] 11-13-2022 08:16-0500 Body mass index (BMI) [Ratio] 36.6 kg/m2 [facility] 10-13-2022 03:52-0500 Body mass index (BMI) [Ratio] 36.6 kg/m2 [facility] 09-11-2022 23:10-0500 Body mass index (BMI) [Ratio] 36.6 kg/m2 [facility] 08-28-2022 13:53-0500 Body weight 83.01 kg Radha Batista [employer] Work Phone: [facility] 08-28-2022 13:53-0500 Diastolic blood pressure 72 mm[Hg] Radha Batista [employer] ATT[employer] Work Phone: [facility] 08-28-2022 13:53-0500 Heart rate 98 /min Radha Batista [employer] ATT[employer] Work Phone: [facility] 08-28-2022 13:53-0500 Respiratory rate 18 /min Radha Batista [employer] ATT[employer] Work Phone: [facility] 08-28-2022 13:53-0500 SaO2% (BldA) [Mass fraction] 96 % Radha Batista [employer] ATTEND[employer] Work Phone: [facility] 08-28-2022 13:53-0500 Systolic blood pressure 124 mm[Hg] Radha Batista [employer] ATT[employer] Work Phone: [facility] 08-13-2022 10:20-0400 Body mass index (BMI) [Ratio] 36.6 kg/m2 [facility] 08-08-2022 13:42-0400 Body temperature 97.39 [degF] Zaira Mancilla [employer] ATT[employer] Work Phone: [facility] 08-08-2022 13:42-0400 Body weight 82.83 kg Zaira Mancilla [employer] ATT[employer] Work Phone: [facility] 08-08-2022 13:42-0400 Diastolic blood pressure 76 mm[Hg] Zaira Mancilla [employer] ATT[employer] Work Phone: [facility] 08-08-2022 13:42-0400 Heart rate 108 /min Zaira Mancilla [employer] ATT[employer] Work Phone: [facility] 08-08-2022 13:42-0400 Respiratory rate 16 /min Zaira Mancilla [employer] ATT[employer] Work Phone: [facility] 08-08-2022 13:42-0400 SaO2% (BldA) [Mass fraction] 97 % Zaira Mancilla [employer] ATT[employer] Work Phone: [facility] 08-08-2022 13:42-0400 Systolic blood pressure 130 mm[Hg] Zaira Mancilla [employer] ATT[employer] Work Phone: [facility] 07-12-2022 21:34-0400 Body mass index (BMI) [Ratio] 36.6 kg/m2 [facility] 07-05-2022 13:00-0400 Body temperature 97 [degF] Zaira Mancilla [employer] Work Phone: [facility] 07-05-2022 13:00-0400 Body weight 83.19 kg Zaira Mancilla [employer] ATT[employer] Work Phone: [facility] 07-05-2022 13:00-0400 Diastolic blood pressure 74 mm[Hg] Zaira Mancilla [employer] ATT[employer] Work Phone: [facility] 07-05-2022 13:00-0400 Heart rate 112 /min Zaira Mancilla [employer] ATT[employer] Work Phone: [facility] 07-05-2022 13:00-0400 Respiratory rate 18 /min Zaira Mancilla [employer] ATT[employer] Work Phone: [facility] 07-05-2022 13:00-0400 SaO2% (BldA) [Mass fraction] 97 % Zaira Mancilla [employer] ATT[employer] Work Phone: [facility] 07-05-2022 13:00-0400 Systolic blood pressure 122 mm[Hg] Zaira Mancilla [employer] ATT[employer] Work Phone: [facility] 06-12-2022 23:03-0400 Body mass index (BMI) [Ratio] 36.6 kg/m2 [facility] Work Phone: 06-06-2022 05:56-0400 Diastolic blood pressure 57 mm[Hg] [facility] Work Phone: 06-06-2022 05:56-0400 Heart rate 86 /min [facility] Work Phone: 06-06-2022 05:56-0400 Respiratory rate 18 /min [facility] Work Phone: 06-06-2022 05:56-0400 SaO2% (BldA) [Mass fraction] 95 % [facility] Work Phone: 06-06-2022 05:56-0400 Systolic blood pressure 111 mm[Hg] [facility] Work Phone: 06-05-2022 21:07-0400 Body temperature 96.7 [degF] [facility] Work Phone: 06-05-2022 15:48-0400 Body height 154.94 cm [facility] Work Phone: 06-05-2022 15:48-0400 Body mass index (BMI) [Ratio] 34.8 kg/m2 [facility] Work Phone: 06-05-2022 15:48-0400 Body weight 83.6 kg [facility] Work Phone: 05-12-2022 02:24-0400 Body mass index (BMI) [Ratio] 36.6 kg/m2 [facility] Work Phone: 04-12-2022 07:02-0400 Body mass index (BMI) [Ratio] 36.6 kg/m2 [facility] Work Phone: 04-10-2022 06:00-0400 Body temperature 98.9 [degF] [facility] Work Phone: 04-10-2022 06:00-0400 Diastolic blood pressure 76 mm[Hg] [facility] Work Phone: 04-10-2022 06:00-0400 Heart rate 114 /min [facility] Work Phone: 04-10-2022 06:00-0400 Respiratory rate 16 /min [facility] Work Phone: 04-10-2022 06:00-0400 SaO2% (BldA) [Mass fraction] 94 % [facility] Work Phone: 04-10-2022 06:00-0400 Systolic blood pressure 116 mm[Hg] [facility] Work Phone: 04-09-2022 15:46-0400 Body height 154.94 cm [facility] Work Phone: 04-09-2022 15:46-0400 Body mass index (BMI) [Ratio] 35.6 kg/m2 [facility] Work Phone: 04-09-2022 15:46-0400 Body weight 85.7 kg [facility] Work Phone: 03-27-2022 14:06-0400 Diastolic blood pressure 82 mm[Hg] Radha Batista APRN.[employer] Work Phone: [facility] 03-27-2022 14:06-0400 Heart rate 103 /min Radha Batista APRN.[employer] Work Phone: [facility] 03-27-2022 14:06-0400 Respiratory rate 18 /min Radha Haagen [employer] ATTEND[employer] Work Phone: [facility] 03-27-2022 14:06-0400 SaO2% (BldA) [Mass fraction] 98 % Radha Haagen [employer] ATT[employer] Work Phone: [facility] 03-27-2022 14:06-0400 Systolic blood pressure 120 mm[Hg] Radha Haagen [employer] ATT[employer] Work Phone: [facility] 03-12-2022 20:43-0400 Body mass index (BMI) [Ratio] 36.6 kg/m2 [facility] Work Phone: 02-10-2022 03:23-0400 Body mass index (BMI) [Ratio] 36.6 kg/m2 [facility] Work Phone: 01-30-2022 13:12-0400 Body weight 85.64 kg Radha Haagen [employer] Work Phone: [facility] 01-30-2022 13:12-0400 Diastolic blood pressure 78 mm[Hg] Radha Haagen [employer] ATT[employer] Work Phone: [facility] 01-30-2022 13:12-0400 Heart rate 106 /min Radha Haagen [employer] ATT[employer] Work Phone: [facility] 01-30-2022 13:12-0400 Respiratory rate 16 /min Radha Haagen [employer] ATT[employer] Work Phone: [facility] 01-30-2022 13:12-0400 Systolic blood pressure 112 mm[Hg] Radha Haagen [employer] ATT[employer] Work Phone: [facility] 01-14-2022 15:12-0400 Body weight 84.82 kg Aleksandar Jones MD Work Phone: [facility] 01-14-2022 15:12-0400 Diastolic blood pressure 68 mm[Hg] Aleksandar Jones MD Work Phone: [facility] 01-14-2022 15:12-0400 Heart rate 118 /min Aleksandar Jones MD Work Phone: [facility] 01-14-2022 15:12-0400 SaO2% (BldA) [Mass fraction] 95 % Aleksandar Jones MD Work Phone: [facility] 01-14-2022 15:12-0400 Systolic blood pressure 102 mm[Hg] Aleksandar Jones MD Work Phone: [facility] 01-11-2022 02:25-0400 Body mass index (BMI) [Ratio] 36.6 kg/m2 [facility] Work Phone: 12-11-2021 09:41-0500 Body mass index (BMI) [Ratio] 36.6 kg/m2 [facility] Work Phone: 12-11-2021 08:41-0500 Body mass index (BMI) [Ratio] 36.6 kg/m2 [facility] Work Phone: 11-13-2021 00:10-0500 Body mass index (BMI) [Ratio] 36.6 kg/m2 [facility] Work Phone: 10-14-2021 03:14-0500 Body mass index (BMI) [Ratio] 36.6 kg/m2 [facility] Work Phone: 09-12-2021 02:21-0500 Body mass index (BMI) [Ratio] 36.6 kg/m2 [facility] Work Phone: Encounters Encounter Date Encounter Type Care Provider Facility Start: 03-14-2025 End: 03-14-2025 Telephone encounter Aleksandar Jones MD Work Phone: [facility] Comment on above: Letter Start: 03-01-2025 End: 03-01-2025 ambulatory Aleksandar Jones Facility:[facility] Start: 02-25-2025 End: 03-16-2025 Telephone encounter Aleksandar Jones MD Work Phone: [facility] Comment on above: Patient Update Start: 02-18-2025 End: 02-18-2025 Refill Aleksandar Jones MD Work Phone: [facility] Comment on above: Refill Request Start: 02-10-2025 End: 02-11-2025 Telephone encounter Aleksandar Jones MD Work Phone: Family [facility] Comment on above: Forms Start: 02-10-2025 ambulatory Lorraine Springer Facility: [facility] Start: 02-02-2025 End: 02-09-2025 ambulatory Aleksandar Jones Facility:[facility] Start: 01-31-2025 End: 02-08-2025 Telephone encounter Aleksandar Jones MD Work Phone: Family [facility] Start: 01-27-2025 End: 01-28-2025 Telephone encounter Aleksandar Jones MD Work Phone: [facility] [place] Comment on above: Forms Start: 01-25-2025 End: 01-25-2025 Refill Aleksandar Jones MD Work Phone: [facility] Comment on above: Refill Request Start: 01-21-2025 End: 01-24-2025 Telephone encounter Aleksandar Jones MD Work Phone: [facility] Comment on above: Forms Start: 01-20-2025 End: 03-22-2025 Follow-up encounter Aleksandar Jones MD Work Phone: Pulmonology [facility] Start: 01-19-2025 End: 01-19-2025 ambulatory ALEKSANDAR JONES Facility:[facility] Start: 01-19-2025 End: 01-19-2025 Subsequent hospital visit by physician Screen Mammo [facility] Comment on above: Encounter for screen ing mammogram for breast cancer [Z12.31] Start: 01-18-2025 End: 03-20-2025 Follow-up encounter Aleksandar Jones MD Work Phone: [facility] Start: 01-18-2025 End: 01-18-2025 ambulatory ALEKSANDAR JONES Facility:[facility] Start: 01-18-2025 End: 01-18-2025 Subsequent hospital visit by physician Us [facility] 2 Work Phone: Radiology Comment on above: Elevated liver enzym es [R74.8] Start: 01-14-2025 End: 01-14-2025 Follow-up encounter Radha Batista APRN.[employer] Work Phone: [facility] Start: 01-12-2025 End: 03-14-2025 Follow-up encounter Aleksandar Jones MD Work Phone: [facility] Start: 01-12-2025 End: 01-12-2025 Telephone encounter Aleksandar Jones MD Work Phone: [facility] Comment on above: Orders Start: 01-12-2025 End: 01-12-2025 ambulatory ALEKSANDAR JONES Facility:[facility] Start: 01-12-2025 End: 01-12-2025 Patient encounter procedure Aleksandar Jones MD Work Phone: [facility] Comment on above: Water intoxication ( Primary Dx); Vitamin D deficiency; Hepatitis B core antibody positive; Hyponatremia; Acute diastolic CHF (congestive heart failure) (HCC); Liver function test abnormality; Type 2 diabetes mellitus with diabetic nephropathy, with long-term current use of insulin (HCC) Start: 01-11-2025 End: 01-11-2025 ambulatory ALEKSANDAR JONES Facility:[facility] Start: 01-05-2025 End: 01-05-2025 Patient encounter procedure Jey Brown MD Work Phone: [facility] [place] Start: 01-05-2025 End: 01-12-2025 Telephone encounter Aleksandar Jones MD Work Phone: [facility] Comment on above: Patient Update Start: 01-04-2025 End: 01-04-[address] Lorraine Springer MD -Laboratory Work Phone: Start: 01-04-2025 End: 01-04-[address] Aleksadnar Jones MD Work Phone: [facility] Work Phone: Start: 01-04-2025 End: 01-05-2025 Follow-up encounter Radha Batista APRN.[employer] ATT[employer] Work Phone: [facility] [place] Start: 01-04-2025 End: 01-12-2025 Telephone encounter Aleksandar Jones MD Work Phone: [facility] [place] Comment on above: Results Start: 01-03-2025 End: 01-06-2025 Refill Aleksandar Jones MD Work Phone: [facility] [place] Comment on above: Refill Request Start: 12-31-2024 End: 12-31-2024 Follow-up encounter Radha Batista APRN.[employer] ATTEND[employer] Work Phone: [facility] [place] Start: 12-30-2024 End: 12-31-2024 Refill Aleksandar Jones MD Work Phone: [facility] [place] Comment on above: Refill Request Results Start: 12-29-2024 End: 02-28-2025 Follow-up encounter Aleksandar Jones MD Work Phone: [facility] [place] Start: 12-28-2024 End: 12-28-2024 ambulatory ALEKSANDAR JONES Facility:[facility] Start: 12-28-2024 End: 12-28-2024 Patient encounter procedure Aleksandar Jones MD Work Phone: [facility] [place] Comment on above: COVID (Primary Dx); Acute diastolic CHF (congestive heart failure) (HCC); Pure hypercholesterolemia; SVT (supraventricular tachycardia) (HCC); Chronic obstructive pulmonary disease, unspecified COPD type (HCC); LIDA (obstructive sleep apnea); Gastritis without bleeding, unspecified chronicity, unspecified gastritis type; Water intoxication; Type 2 diabetes mellitus with diabetic nephropathy, with long-term current use of insulin (HCC); Vitamin D deficiency; Obesity, Class II, BMI 35-39.9; Degeneration of intervertebral disc of lumbar region with discogenic back pain and lower extremity pain; Elevated liver enzymes; Schizophreniform disorder, chronic condition (HCC) Start: 12-21-2024 End: 12-21-2024 Emergency department patient visit Dr. Aleksandar Jones MD Work Phone: -Emergency Department Work Phone: Start: 12-08-2024 End: 12-10-[address] Lorraine Springer MD -Laboratory Work Phone: Start: 12-08-2024 End: 12-10-2024 Refill Aleksandar Jones MD Work Phone: [facility] [place] Comment on above: Refill Request Start: 12-07-2024 End: 12-08-2024 Follow-up encounter Radha Batista APRN.[employer] Work Phone: [facility] Start: 12-07-2024 End: 12-07-2024 Subsequent hospital visit by physician Xr [facility] [place] Work Phone: Radiology Comment on above: Bacterial pneumonia [J15.9] Start: 12-07-2024 End: 12-07-2024 ambulatory [facility] Facility:[facility] Start: 12-07-2024 End: 12-07-2024 Office outpatient visit 25 minutes Radha Batista APRN.[employer] ATT[employer] Work Phone: [facility] Comment on above: Leg pain, bilateral (Primary Dx); Bacterial pneumonia Start: 12-03-2024 End: 02-02-2025 Follow-up encounter Radha Batista APRN.[employer] ATT[employer] Work Phone: [facility] Start: 12-03-2024 End: 12-03-2024 Telephone encounter Radha Batista APRN.[employer] ATT[employer] Work Phone: [facility] Comment on above: Results Start: 12-01-2024 End: 12-01-2024 ambulatory [facility] Facility:[facility] Start: 11-29-2024 End: 11-29-2024 Telephone encounter Aleksandar Jones MD Work Phone: [facility] Comment on above: Appointment Start: 11-25-2024 End: 11-25-2024 Refill Aleksandar Jones MD Work Phone: [facility] Comment on above: Refill Request Start: 2024 End: 2024 Refill Aleksandar Jones MD Work Phone: [address] [place] [address] Comment on above: Refill Request Start: 11-12-2024 Non-patient / Non-visit Dr. Neela Lebron [facility] Work Phone: Start: 11-11-2024 Non-patient / Non-visit Dr. Neela Lebron [facility] Work Phone: Start: 11-10-2024 Non-patient / Non-visit Dr. Neela Lebron [facility] Work Phone: Start: 11-10-2024 End: 11-10-2024 Telephone encounter Aleksandar Jones MD Work Phone: [facility] [place] Start: 11-09-2024 End: 11-12-2024 Evaluation and management of inpatient Dr. Ana Lilia Lebron [facility] Work Phone: Start: 11-09-2024 End: 11-09-2024 ambulatory ALEKSANDAR JONES Facility:[facility] Start: 11-09-2024 End: 11-09-2024 Subsequent hospital visit by physician Radha [facility] Work Phone: Radiology Comment on above: Acute cough [R05.1] Start: 11-09-2024 End: 11-09-2024 ambulatory Shelia Salmon Facility:[facility] Start: 11-09-2024 End: 11-09-2024 Patient encounter procedure Zaira Mancilla APRN.[employer] ATTEND[employer] Work Phone: [facility] Comment on above: Pneumonia of right l lisbeth due to infectious organism, unspecified part of lung (Primary Dx); Fever, unspecified fever cause; Acute cough; URI, acute Start: 11-05-2024 End: 11-09-2024 Telephone encounter Radha Batista APRN.[employer] ATT[employer] Work Phone: [facility] [place] Comment on above: Results Start: 11-02-2024 End: 11-02-2024 Subsequent hospital visit by physician Radha [facility] Work Phone: Radiology Comment on above: Weakness of both low er extremities [R29.898] Start: 11-02-2024 End: 11-02-2024 ambulatory ALEKSANDAR Jeffrey [facility] Facility:[facility] Start: 11-02-2024 End: 11-02-2024 Office outpatient visit 25 minutes Radha Batista APRN.[employer] ATT[employer] Work Phone: [facility] Comment on above: Weakness of both low er extremities (Primary Dx); Uncontrolled type 2 diabetes mellitus with hyperglycemia (HCC); Hyperlipidemia, unspecified hyperlipidemia type; Leg pain, bilateral Start: 11-02-2024 End: 11-02-2024 ambulatory [facility] Facility:[facility] Start: 10-29-2024 End: 10-29-2024 Refill Aleksandar Jones MD Work Phone: [facility] Comment on above: Refill Request Start: 10-14-2024 End: 10-14-2024 Emergency department patient visit Dr. Tae Holland DO -Emergency Department Work Phone: Start: 10-14-2024 End: 10-14-[address] Lorraine Springer MD -Laboratory Work Phone: Start: 10-14-2024 End: 10-14-[address] [facility] Start: 10-04-2024 End: 10-04-2024 Refill Aleksandar Jones MD Work Phone: [facility] Comment on above: Refill Request Start: 09-28-2024 End: 09-28-2024 Office outpatient visit 25 minutes Radha Batista APRN.TANNING SALON ATTENDANT Work Phone: [facility] Comment on above: Leg pain, bilateral (Primary Dx) Start: 09-28-2024 End: 09-28-2024 ambulatory [facility] Facility:[facility] Start: 09-24-2024 End: 09-24-2024 Refill Aleksandar Jones MD Work Phone: [facility] Comment on above: Refill Request Start: 09-20-2024 End: 09-20-2024 ambulatory [facility] Facility:[facility] Start: 09-20-2024 End: 09-20-2024 Patient encounter procedure Fuentes Renee MD Work Phone: Cardiology Comment on above: Primary hypertension (Primary Dx); Pure hypercholesterolemia; SVT (supraventricular tachycardia) (HCC); Tachycardia Start: 09-16-2024 End: 09-16-[address] Lorraine Springer MD -Laboratory Work Phone: Start: 09-16-2024 End: 09-16-2024 ambulatory [facility] Facility:[facility] Start: 09-08-2024 End: 09-08-2024 Office outpatient visit 25 minutes Radha Batista RUBBER CUTTER AND SHAPE CARVER.TANNING SALON ATTENDANT Work Phone: [facility] Comment on above: Chronic obstructive pulmonary disease, unspecified COPD type (HCC) (Primary Dx); Leg pain, bilateral; Encounter for immunization Start: 09-08-2024 End: 09-08-2024 [facility] Start: 08-31-2024 End: 08-31-2024 Refill Aleksandar Jones MD Work Phone: [facility] Comment on above: Refill Request Start: 08-25-2024 End: 09-11-[address] Lorraine Springer MD -Laboratory Work Phone: Start: 08-25-2024 End: 09-11-2024 ambulatory [facility] Facility:[facility] Start: 08-24-2024 End: 08-24-2024 ambulatory [facility] Facility:[facility] Start: 08-24-2024 End: 08-24-2024 Office outpatient visit 15 minutes Shelia Salmon [employer] SHAPE CARVER.TANNING SALON ATTENDANT Work Phone: [facility] Comment on above: LIDA (obstructive sle ep apnea) (Primary Dx); Acute exacerbation of chronic obstructive pulmonary disease (COPD) (HCC); Tachycardia; Tinea cruris Start: 08-20-2024 End: 08-20-2024 Refill Aleksandar Jones MD Work Phone: [facility] Comment on above: Refill Request Start: 08-18-2024 End: 08-18-2024 Telephone encounter Aleksandar Jones MD Work Phone: [facility] Comment on above: Medication Problem Start: 08-16-2024 End: 08-16-2024 Telephone encounter Aleksandar Jones MD Work Phone: [facility] Comment on above: Medication Request ( Cough drops) Start: 08-06-2024 End: 08-06-2024 Refill Aleksandar Jones MD Work Phone: [facility] Comment on above: Refill Request Start: 07-31-2024 End: 07-31-2024 ambulatory Barbara Dickens RN NURSE CIGAR HEAD PERFORATOR Comment on above: Information Start: 07-31-2024 End: 07-31-2024 Patient encounter procedure Malcolm Abreu RN NURSE ON JAZLYN L Comment on above: Clinical Update Start: 07-31-2024 End: 07-31-2024 Telephone encounter Aleksandar Jones MD Work Phone: [facility] Comment on above: took another group h ome patient s medications Start: 07-29-2024 End: 07-29-2024 Refill Aleksandar Jones MD Work Phone: [facility] Comment on above: Refill Request Start: 07-23-2024 End: 07-23-2024 ambulatory ALEKSANDAR JONES Facility:[facility] Start: 07-23-2024 End: 07-23-2024 Office outpatient visit 15 minutes Adriano Menezes APRN.CNP Work Phone: [facility] Comment on above: Pain of right eye (P rimary Dx) Start: 07-22-2024 End: 07-22-2024 Telephone encounter Aleksandar Jones MD Work Phone: [facility] Comment on above: Patient Question Start: 07-21-2024 End: 07-21-2024 ambulatory Aleksandar MADRID Facility:[facility] Start: 07-14-2024 End: 07-14-2024 Telephone encounter Aleksandar Jones MD Work Phone: [facility] Comment on above: Medication issue Start: 07-09-2024 End: 07-09-2024 Refill Aleksandar Jones MD Work Phone: [facility] Comment on above: Refill Request Start: 07-06-2024 End: 07-06-2024 Office outpatient visit 25 minutes Radha Batista APRN.CNP Work Phone: [facility] [place] Comment on above: Uncontrolled type 2 diabetes mellitus with hyperglycemia (HCC) (Primary Dx); Encounter for immunization; Fatigue, unspecified type; Type 2 diabetes mellitus with diabetic nephropathy, with long-term current use of insulin (HCC); Chronic obstructive pulmonary disease, unspecified COPD type (HCC); Schizophreniform disorder, chronic condition (HCC); Primary hypertension; Vitamin D deficiency; Pure hypercholesterolemia Start: 07-06-2024 End: 07-06-2024 ambulatory ALEKSANDAR JONES Facility:[facility] Start: 06-23-2024 End: 06-28-2024 ambulatory Aleksandar Jones MD Work Phone: Internal Medicine [place] [id number] Start: 06-17-2024 End: 06-17-2024 Refill Aleksandar Jones MD Work Phone: [facility] Comment on above: Refill Request Start: 06-11-2024 End: 06-16-2024 Refill Fuentes Renee MD Work Phone: Cardiology Comment on above: Refill Request Start: 06-09-2024 End: 06-09-2024 Refill Aleksandar Jones MD Work Phone: [facility] Comment on above: Refill Request Start: 06-03-2024 End: 06-03-2024 ambulatory Aleksandar Jones [facility] Facility:[facility] Start: 05-19-2024 Telephone encounter Aleksandar Jones MD Work Phone: [facility] Comment on above: Patient Question Start: 05-18-2024 Refill Aleksandar Jones MD Work Phone: [facility] Comment on above: Refill Request Start: 05-04-2024 End: 05-04-2024 Refill Aleksandar Jones MD Work Phone: [facility] Comment on above: Refill Request Medication Problem Start: 04-20-2024 End: 05-12-2024 ambulatory Aleksandar MADIRD Facility:[facility] Start: 04-16-2024 Refill Aleksandar Jones MD Work Phone: [facility] Comment on above: Refill Request Start: 04-14-2024 End: 04-14-2024 ambulatory ALEKSANDAR Jeffery [facility] Facility:[facility] Start: 04-14-2024 End: 04-14-2024 Office outpatient visit 25 minutes Radha Batista RUBBER CUTTER [employer] SHAPE CARVER.TANNING SALON ATTENDANT Work Phone: [facility] Comment on above: Folliculitis (Primar y Dx); Fatigue, unspecified type Start: 04-01-2024 End: 04-01-2024 ambulatory Gerardo Golias PT Work Phone: [facility] Comment on above: Weakness of both low er extremities (Primary Dx) Start: 03-30-2024 End: 03-30-2024 ambulatory Gerardo Golias PT Work Phone: [facility] Comment on above: Weakness of both low er extremities (Primary Dx) Start: 03-30-2024 End: 03-30-2024 ambulatory [facility] Facility:[facility] Start: 03-30-2024 End: 03-30-2024 ambulatory [facility] Facility:[facility] Start: 03-30-2024 End: 03-30-2024 Office outpatient visit 15 minutes Radha Batista [employer] SH[employer] CARVER.TANNING SALON ATTENDANT Work Phone: [facility] Comment on above: Uncontrolled type 2 diabetes mellitus with hyperglycemia (HCC) (Primary Dx) Start: 03-25-2024 End: 03-25-2024 ambulatory Jaci Almendarezmarkos SHEET METAL APPRENTICE Work Phone: [facility] Comment on above: Weakness of both low er extremities (Primary Dx) Start: 03-24-2024 End: 03-24-2024 ambulatory Aleksandar Robert MADRID Facility:[facility] Start: 03-23-2024 End: 03-23-2024 ambulatory Gerardo Golias PT Work Phone: [facility] Comment on above: Weakness of both low er extremities (Primary Dx) Start: 03-19-2024 End: 03-19-2024 Refill Aleksandar Jones MD Work Phone: [facility] Comment on above: Refill Request Start: 03-19-2024 End: 03-19-2024 Office outpatient visit 25 minutes Radha Batista APRN.TANNING SALON ATTENDANT Work Phone: [facility] Comment on above: Uncontrolled type 2 diabetes mellitus with hyperglycemia (HCC) (Primary Dx); Thrombocytopenia (HCC); Elevated liver enzymes Start: 03-18-2024 Telephone encounter Aleksandar Jones MD Work Phone: Pulmonology [facility] Comment on above: Patient Update Start: 03-18-2024 End: 03-18-2024 ambulatory Jaci Kashuba SHEET METAL APPRENTICE Work Phone: [facility] Comment on above: Weakness of both low er extremities (Primary Dx); Leg weakness, bilateral Start: 03-16-2024 End: 03-16-2024 ambulatory Gerardo Golias PT Work Phone: [facility] Comment on above: Weakness of both low er extremities (Primary Dx) Start: 03-12-2024 Telephone encounter Rolf Herrera DO Work Phone: Internal Medicine [place] Comment on above: Patient Update (Call from nurse on-call last evening on March 11 regarding hyperglycemia) Start: 03-05-2024 Telephone encounter Radha brown APRN.TANNING SALON ATTENDANT Work Phone: [facility] Comment on above: Results Start: 03-04-2024 End: 03-04-2024 ambulatory Jaci Kashuba SHEET METAL APPRENTICE Work Phone: [facility] Comment on above: Weakness of both low er extremities (Primary Dx) Start: 03-02-2024 End: 03-02-2024 ambulatory Gerardo Golias PT Work Phone: [facility] Comment on above: Leg weakness, bilate ral (Primary Dx); Weakness of both lower extremities Start: 03-02-2024 End: 03-02-2024 Office outpatient visit 25 minutes Radha Batista APRN.TANNING SALON ATTENDANT Work Phone: [facility] Comment on above: Fatigue, unspecified type (Primary Dx); Pain in both lower extremities; Type 2 diabetes mellitus with diabetic nephropathy, with long-term current use of insulin (HCC) Start: 02-26-2024 End: 02-26-2024 ambulatory [employer] PT Work Phone: [facility] Comment on above: Leg weakness, bilate ral (Primary Dx) Start: 02-24-2024 End: 02-24-2024 ambulatory Jaci Bhargavhuba SHEET METAL APPRENTICE Work Phone: [facility] Comment on above: Leg weakness, bilate ral (Primary Dx) Refill Request Start: 02-19-2024 End: 02-19-2024 ambulatory GerardoDigital Dandelionias PT Work Phone: [facility] Comment on above: Leg weakness, bilate ral (Primary Dx) Start: 02-17-2024 End: 02-17-2024 ambulatory Jaci Bhargavhuba SHEET METAL APPRENTICE Work Phone: [facility] Comment on above: Leg weakness, bilate ral (Primary Dx) Start: 02-12-2024 End: 02-12-2024 ambulatory Jaci Bhargav[employer] SHEET METAL APPRENTICE Work Phone: [facility] Comment on above: Leg weakness, bilate ral (Primary Dx) Start: 02-10-2024 End: 02-10-2024 ambulatory GerardoDigital Dandelionias PT Work Phone: [facility] Comment on above: Leg weakness, bilate ral (Primary Dx) Start: 02-05-2024 End: 02-05-2024 ambulatory Jaci Bhargavhuba SHEET METAL APPRENTICE Work Phone: [facility] Comment on above: Leg weakness, bilate ral (Primary Dx) Start: 02-04-2024 Telephone encounter Aleksandar Jones MD Work Phone: [facility] Comment on above: Insurance Authorizat ion (Lantus solostar ) Start: 02-03-2024 End: 02-10-2024 Discharged Recurring [facility]-Laboratory Work Phone: Start: 02-03-2024 End: 02-10-2024 ambulatory Gerardo Golias PT Work Phone: [facility] Comment on above: Leg weakness, bilate ral (Primary Dx) Start: 01-29-2024 Refill Aleksandar Jones MD Work Phone: [facility] Comment on above: Refill Request Start: 01-21-2024 End: 01-21-2024 ambulatory Gerardo Golias PT Work Phone: [facility] Comment on above: Leg weakness, bilate ral Start: 01-13-2024 End: 01-13-2024 Office outpatient visit 25 minutes Radha Batista APRN.TANNING SALON ATTENDANT Work Phone: [facility] Comment on above: Acute constipation ( Primary Dx); Nasal dryness; Pain in both lower extremities; Leg weakness, bilateral; Sedative, hypnotic or anxiolytic dependence, uncomplicated (HCC); Acute respiratory failure with hypoxia (HCC); Chronic obstructive pulmonary disease, unspecified COPD type ([facility]); SVT (supraventricular tachycardia) ([facility]) Start: 01-07-2024 End: 01-10-2024 ambulatory [facility] Work Phone: Start: 01-07-2024 End: 01-10-2024 Discharged Recurring [facility]-Laboratory Work Phone: Start: 12-13-2023 End: 12-14-2023 Emergency department patient visit Dr. Aleksandar Jones Work Phone: [facility]-Emergency Department Work Phone: Start: 12-02-2023 Refill Aleksandar Jones MD Work Phone: [facility] Comment on above: Refill Request Start: 11-20-2023 Telephone encounter Meredith Glen mcmahan APRN.TANNING SALON ATTENDANT Work Phone: [facility] Comment on above: Results (Labs ) Start: 11-19-2023 End: 12-11-[address] Aleksandar Jones Work Phone: [facility] Work Phone: Start: 11-19-2023 End: 12-11-[address] Aleksandar Jones Work Phone: [facility]-Laboratory Work Phone: Start: 10-24-2023 End: 10-24-[address] Aleksandar Jones Work Phone: [facility] Work Phone: Start: 10-24-2023 End: 10-24-[address] Aleksandar Jones Work Phone: [facility]-Radiology, [facility] Work Phone: Start: 10-22-2023 End: 10-22-[address] Aleksandar Jones Work Phone: [facility] Work Phone: Start: 10-22-2023 End: 10-22-[address] Aleksandar Jones Work Phone: [facility]-Laboratory Work Phone: Start: 10-22-[address] Andrew Jones Work Phone: [facility]Laboratory Work Phone: Start: 09-22-2023 End: 09-22-2023 Patient encounter procedure Fuentes Renee MD Work Phone: Cardiology Comment on above: Primary hypertension (Primary Dx); Pure hypercholesterolemia; SVT (supraventricular tachycardia) Start: 09-17-2023 End: 10-12-[address] [facility]ksandar Jones [facility] Start: 09-10-2023 Refill Aleksandar Jones MD Work Phone: [facility] Comment on above: Refill Request Start: 09-09-2023 Telephone encounter Aleksandar Jones MD Work Phone: [facility] [place] Comment on above: Medication Problem ( Test strips and lancets) Start: 08-31-2023 Telephone encounter Alma brown RUBBER CUTTER AND SHAPE CARVER.TANNING SALON ATTENDANT Work Phone: [facility] Comment on above: Results Start: 08-29-2023 End: 08-29-2023 Patient encounter procedure Alma Ac RUBBER CUTTER AND SHAPE CARVER.TANNING SALON ATTENDANT Work Phone: OB/Gynecology Comment on above: Itching in the vagin al area (Primary Dx) Start: 08-28-2023 Refill Aleksandar Jones MD Work Phone: [facility] Comment on above: Refill Request Start: 08-20-2023 Telephone encounter Aleksandar Jones MD Work Phone: [facility] Comment on above: Refill Request; Medi cation Problem Start: 08-19-2023 Telephone encounter Aleksandar Jones MD Work Phone: [facility] Comment on above: Elevated Blood Sugar Start: 08-19-2023 End: 09-11-[address] Aleksandar Jones Work Phone: [facility] Work Phone: Start: 08-19-2023 End: 09-11-[address] Aleksandar Jones Work Phone: [facility]-Laboratory Work Phone: Start: 08-16-2023 Non-patient / Non-visit Dr. Julio Cesar Jones Work Phone: [facility] Work Phone: Start: 08-15-2023 Non-patient / Non-visit Dr. Julio Cesar Jones Work Phone: [facility] Work Phone: Start: 08-14-2023 Non-patient / Non-visit Dr. Julio Cesar Jones Work Phone: [facility] Work Phone: Start: 08-14-2023 End: 08-16-2023 Evaluation and management of inpatient Dr. Aleksandar Jones Work Phone: [facility]-Progress e Care Unit Work Phone: Start: 08-12-2023 Refill Aleksandar Jones MD Work Phone: [facility] Comment on above: Refill Request Start: 07-17-2023 End: 07-17-[address] Aleksandar Jones Work Phone: [facility]Laboratory Work Phone: Start: 07-16-2023 ambulatory Aleksandar Jones MD Work Phone: Internal Medicine [facility] [place] Start: 07-15-2023 Refill Fuentes Renee MD Work Phone: Cardiology Comment on above: Refill Request Start: 06-18-2023 End: 06-18-2023 Refill Aleksandar Jones MD Work Phone: [facility] Comment on above: Refill Request Start: 06-18-2023 End: 06-18-2023 Discharged Recurring [facility] Work Phone: Start: 05-27-2023 Refill Aleksandar Jones MD Work Phone: [facility] Comment on above: Refill Request Start: 05-26-2023 Telephone encounter Radha brown APRN.CNP Work Phone: [facility] Comment on above: Results Start: 05-26-2023 End: 05-26-2023 Nursing evaluation of patient and report Nurse Card Admin [facility] Work Phone: Cardiology Comment on above: Tachycardia (Primary Dx) Start: 05-26-2023 End: 05-26-2023 Subsequent hospital visit by physician Injection Nm [facility] Work Phone: Nuclear Medicine Comment on above: Chest pain, unspecif ied type [R07.9] Start: 05-23-2023 Refill Aleksandar Jones MD Work Phone: [facility] Comment on above: Refill Request Start: 05-20-2023 End: 05-20-2023 ambulatory [facility] Work Phone: Start: 05-20-2023 End: 05-20-2023 [facility]charged [facility] Start: 05-08-2023 Telephone encounter Aleksandar Jones MD Work Phone: [facility] Comment on above: Results Start: 05-05-2023 End: 05-12-2023 ambulatory [facility] Work Phone: Start: 05-05-2023 End: 05-12-2023 [facility]charged [facility]: Start: 04-30-2023 End: 04-30-2023 ambulatory [facility] Work Phone: Start: 04-30-2023 End: 04-30-2023 Patient encounter procedure [facility]-Cat Scan, [facility] Work Phone: Start: 04-29-2023 End: 04-29-2023 Office outpatient visit 40 minutes Radha Batista RUBBER CUTTER AND SHAPE CARVER.TANNING SALON ATTENDANT Work Phone: [facility] Comment on above: Chest pain, unspecif ied type (Primary Dx); Weight loss; Type 2 diabetes mellitus with diabetic nephropathy, with long-term current use of insulin ([facility]); Hyperlipidemia, unspecified hyperlipidemia type; GERD without esophagitis; Acute diastolic CHF (congestive heart failure) ([facility]); Schizophreniform disorder, chronic condition ([facility]); Fatigue, unspecified type Start: 03-17-2023 End: 03-17-2023 [facility] Work Phone: Start: 03-17-2023 End: 03-17-2023 [facility]charged [facility]: Start: 02-26-2023 Refill Radha Batista APRN.TANNING SALON ATTENDANT Work Phone: [facility] Comment on above: Refill Request Start: 02-17-2023 End: 03-12-2023 [facility] Work Phone: Start: 02-17-2023 End: 03-12-2023 Discharged Recurring [facility]atory Start: 02-14-2023 Refill Aleksandar Jones MD Work Phone: [facility] [place] Comment on above: Refill Request Start: 01-30-2023 Refill Aleksandar Jones MD Work Phone: [facility] [place] Comment on above: Refill Request Start: 01-15-2023 End: 02-09-2023 ambulatory [facility] Work Phone: Start: 01-15-2023 End: 02-09-2023 Discharged Recurring [facility] Start: 12-16-2022 End: 01-10-2023 ambulatory [facility] Work Phone: Start: 12-16-2022 End: 01-10-2023 Discharged Recurring [facility] Start: 12-09-2022 Refill Aleksandar Jones MD Work Phone: [facility] Comment on above: Refill Request Start: 11-19-2022 End: 11-19-2022 ambulatory [facility] Work Phone: Start: 11-19-2022 End: 11-19-2022 Discharged Recurring [facility] Start: 10-17-2022 End: 10-17-2022 ambulatory [facility] Work Phone: Start: 10-17-2022 End: 10-17-2022 Discharged Recurring [facility] Start: 10-08-2022 Refill Aleksandar Jones MD Work Phone: [facility] Comment on above: Refill Request Start: 10-04-2022 Refill Aleksandar Jones MD Work Phone: [facility] Comment on above: Refill Request Start: 09-19-2022 End: 09-19-2022 ambulatory [facility] Work Phone: Start: 09-19-2022 End: 09-19-2022 Discharged Recurring [facility] Start: 09-11-2022 Refill Aleksandar Jones MD Work Phone: [facility] Comment on above: Refill Request Start: 08-30-2022 Refill Aleksandar Jones MD Work Phone: [facility] Comment on above: Refill Request Start: 08-28-2022 End: 08-28-2022 Office outpatient visit 25 minutes Radha Batista APRN.TANNING SALON ATTENDANT Work Phone: [facility] Comment on above: Type 2 diabetes mendel itus with diabetic nephropathy, with long- term current use of insulin (HCC) (Primary Dx); Schizophreniform disorder, chronic condition (HCC); Hyperlipidemia, unspecified hyperlipidemia type; LIDA (obstructive sleep apnea); Rosacea; Upper back pain; Gassiness Start: 08-19-2022 Refill Aleksandar Jones MD Work Phone: [facility] Comment on above: Refill Request Start: 08-15-2022 End: 09-11-2022 Refill Aleksandar Jones MD Work Phone: [facility] Comment on above: Refill Request Start: 08-15-2022 End: 09-11-2022 Discharged Recurring [facility] Start: 08-13-2022 Refill Fuentes Renee MD Work Phone: Cardiology Comment on above: Refill Request Start: 08-08-2022 End: 08-08-2022 Patient encounter procedure Zaira Mancilla APRN.TANNING SALON ATTENDANT Work Phone: [facility] Comment on above: Conjunctivitis of le ft eye, unspecified conjunctivitis type (Primary Dx); Facial infection Start: 08-07-2022 ambulatory Aleksandar Jones MD Work Phone: Internal Medicine [facility] [place] Start: 07-23-2022 End: 07-23-2022 Discharged Recurring [facility] Start: 07-05-2022 End: 07-05-2022 Patient encounter procedure Zaira Mancilla APRN.TANNING SALON ATTENDANT Work Phone: [facility] Comment on above: Injury of toenail of right foot, initial encounter (Primary Dx) Start: 06-20-2022 Refill Aleksandar Jones MD Work Phone: [facility] Comment on above: Refill Request Start: 06-19-2022 End: 06-19-2022 ambulatory [facility] Work Phone: Start: 06-19-2022 End: 06-19-2022 [facility]charged [facility] Start: 06-05-2022 End: 06-06-2022 Emergency department patient visit [facility]Emergency Department Start: 05-17-2022 End: 05-17-2022 ambulatory [facility] Work Phone: Start: 05-17-2022 End: 05-17-2022 [facility] Start: 05-17-2022 [facility] Start: 05-08-2022 Refill Aleksandar Jones MD Work Phone: [facility] Comment on above: Refill Request Start: 05-07-2022 Telephone encounter Aleksandar Jones MD Work Phone: Internal Medicine [facility] Comment on above: Patient Question Start: 05-02-2022 Refill Aleksandar Jones MD Work Phone: [facility] Comment on above: Refill Request Start: 04-18-2022 End: 04-18-2022 Patient encounter procedure [facility] Start: 04-17-2022 End: 05-12-2022 Discharged Recurring [facility] Start: 04-17-2022 [facility] Start: 04-09-2022 End: 04-10-2022 Emergency department patient visit [facility] Start: 03-27-2022 End: 03-27-2022 Office outpatient visit 15 minutes Radha Batista APRN.CNP Work Phone: [facility] Comment on above: Skin irritation (Moraima malcolm Dx); Rosacea Start: 03-27-2022 Refill Aleksandar Jones MD Work Phone: [facility] Comment on above: Refill Request Start: 03-20-2022 End: 03-20-2022 [facility] Start: 03-20-2022 [facility] Start: 02-13-2022 End: 02-13-2022 [facility]charged [facility] Start: 01-30-2022 End: 01-30-2022 Patient encounter procedure Radha Batista PRISCILLA Work Phone: [facility] Comment on above: Right hip pain (Prim robin Dx) Start: 01-29-2022 Telephone encounter Aleksandar Jones MD Work Phone: [facility] Comment on above: Medication Request Start: 01-14-2022 End: 01-14-2022 Refill Aleksandar Jones MD Work Phone: [facility] Comment on above: Refill Request Tachycardia (Primary Dx); SVT (supraventricular tachycardia) ([facility]); Acute diastolic CHF (congestive heart failure) ([facility]); Chronic obstructive pulmonary disease, unspecified COPD type ([facility]); LIDA (obstructive sleep apnea); Water intoxication; Type 2 diabetes mellitus with diabetic nephropathy, with long-term current use of insulin ([facility]); Schizophreniform disorder, chronic condition ([facility]); Vitamin D deficiency; Advance care planning Start: 01-14-2022 End: 01-14-2022 [facility] Start: 01-11-2022 Refill Aleksandar Jones MD Work Phone: [facility] Comment on above: Refill Request Start: 12-13-2021 End: 01-10-2022 [facility]charged [facility] Start: 11-20-2021 End: 11-20-2021 [facility]charged [facility] Start: 10-16-2021 End: 11-12-2021 Discharged Recurring [facility] Start: 09-24-2021 End: 10-13-2021 [facility]charged [facility] Start: 07-19-2021 End: 07-19-2021 Subsequent hospital visit by physician Radha [facility] Work Phone: Radiology Comment on above: Behavioral change [R 46.89] Start: 10-18-2020 End: 10-18-2020 Subsequent hospital visit by physician Radha [facility] Work Phone: Radiology Comment on above: SOB (shortness of br eath) [R06.02] Start: 06-08-2018 Ambulatory [facility] Facility :[facility] Start: 11-27-2017 End: 11-27-2017 Ambulatory [facility] Facility:[facility] Start: 08-29-2009 End: 11-26-2011 Patient encounter status Gerardo Davis PT Work Phone: [facility] Work Phone: Procedures Date Procedure Procedure Detail Performing Clinician Start: 01-18-2025 Us abdominal real ti me w/image limited Aleksandar Jones MD Work Phone: Start: 12-21-[address] Andrew Jones MD Work Phone: Start: 12-21-2024 SARS-CoV-2, Influenz a & RSV (PCR) Dr. Aleksandar Jones MD Work Phone: Start: 12-21-[address] Andrew Jones MD Work Phone: Start: 12-21-2024 X-ray of chest, PA a nd lateral views Dr. Aleksandar Jones MD Work Phone: Start: 12-07-2024 Radiologic exam ches t 2 views Radha Batista APRN.[employer] ATTENDANT Work Phone: Start: 11-12-2024 Plain chest X-ray Dr. Melanie Jones MD Work Phone: Start: 11-11-2024 Sars-cov-2 Dr. Viki Jones MD Work Phone: Start: 11-10-2024 Legionella pneumophi la antigen assay Dr. Aleksandar Jones MD Work Phone: Start: 11-10-[address] Aleksandar Jones MD Work Phone: Start: 11-10-2024 Streptococcus pneumo niae antigen assay Dr. Aleksandar Jones MD Work Phone: Start: 11-09-2024 Plain chest X-ray Dr. Melanie Jones MD Work Phone: Start: 11-09-2024 Radiologic exam ches t 2 views Zaira Mancilla [employer] CARVER.[employer]ANNING [employer] ATTENDANT Work Phone: Start: 11-09-2024 INFLUENZA A&B MOLECU LAR (POC) [facility] Provider Start: 11-09-[address] Andrew Jones MD Work Phone: Start: 11-09-2024 SARS-CoV-2, Influenz a & RSV (PCR) Dr. Aleksandar Jones MD Work Phone: Start: 11-02-2024 Radex spine lumbosac ral 2/3 views Radha Batista [employer]VER.[employer]ANNING [employer] ATTENDANT Work Phone: Start: 10-14-2024 Plain chest X-ray Dr. Melanie Jones MD Work Phone: Start: 10-14-2024 SARS-CoV-2, Influenz a & RSV (PCR) Dr. Aleksandar Jones MD Work Phone: Start: 09-20-2024 Ecg routine ecg w/le ast 12 lds i&r only Fuentes Renee MD Work Phone: Start: 07-06-2024 [employer] COVI D-19 VACCINE AGE 12+ YR Radha Batista [employer]ING [employer] ATTENDANT Work Phone: Start: 12-13-2023 Computed tomography of abdomen and pelvis with intravenous contrast Dr. Aleksandar Jones Work Phone: Start: 12-13-2023 SARS-CoV-2, Influenz a & RSV (PCR) Dr. Aleksandar Jones Work Phone: Start: 10-24-2023 Plain chest X-ray Dr. Melanie Jones Work Phone: Start: 08-15-2023 Plain chest X-ray Dr. Melanie Jones Work Phone: Start: 08-14-2023 Plain chest X-ray Dr. Melanie Jones Work Phone: Start: 08-14-[address] Aleksandar Jones Work Phone: Start: 05-26-2023 Myocardial spect mul tiple studies Radha Hakevin [employer] ATTENDANT Work Phone: Start: 04-30-2023 CT of chest Start: 04-18-2022 CT of chest Start: 01-14-2022 Adult depression scr eening assessment Aleksandar Jones MD Work Phone: Start: 07-19-2021 Radiologic exam ches t 2 views Aleksandar Jones MD Work Phone: Start: 06-27-2021 Mammography Aleksandar Anaya MD Work Phone: Start: 10-18-2020 Radiologic exam ches t 2 views Maria L Cedeno [employer]ING [employer] ATTENDANT Work Phone: Start: 08-05-2019 Adult depression scr eening assessment Aleksandar Jones MD Work Phone: Start: 12-19-2016 Colonoscopy Aleksandar Anaya MD Work Phone: Viral antigen assay Plan of Treatment Date Care Activity Detail Author Start: 07-18-2028 Urine microalbumin profile DTaP,Tdap,Td Vaccine (3 - Td or Tdap) [facility] Start: 12-19-2026 Colonoscopy COLONOSCOPY [facility] Start: 12-19-2026 COLORECTAL CANCER SCREENING COLORECTAL CANCER SCREENING [facility] Start: 12-19-2026 Screening for malignant neoplasm of colon [facility] Start: 01-24-2026 HPV TESTING HPV TESTING [facility] Start: 01-24-2026 PAP TESTING PAP TESTING [facility] Start: 01-24-2026 Screening for malignant neoplasm of cervix [facility] Start: 01-19-2026 Screening for malignant neoplasm of breast Mammogram Screening [facility] Start: 01-12-2026 Annual PCP Team Chronic Disease Visit Annual PCP Team Chronic Disease Visit [facility] Start: 01-12-2026 BP Controlled (<130/80) BP Controlled (<130/80) [facility] Start: 12-28-2025 Annual PCP Team Chronic Disease Visit Annual PCP Team Chronic Disease Visit [facility] Start: 12-28-2025 BP Controlled (<130/80) BP Controlled (<130/80) [facility] Start: 12-28-2025 HIV screening HIV Screening [facility] Comment on above: Postponed from 1981 (Declined at t his time) Start: 12-07-2025 Annual PCP Team Chronic Disease Visit Annual PCP Team Chronic Disease Visit [facility] Start: 12-07-2025 BP Controlled (<130/80) BP Controlled (<130/80) [facility] Start: 11-02-2025 Annual PCP Team Chronic Disease Visit Annual PCP Team Chronic Disease Visit [facility] Start: 11-02-2025 BP Controlled (<130/80) BP Controlled (<130/80) [facility] Start: 11-02-2025 Diabetic foot examination Diabetic Foot Exam [facility] Start: 11-02-2025 Hepatitis B surface antibody level LDL Cholesterol [facility] Start: 09-28-2025 Annual PCP Team Chronic Disease Visit Annual PCP Team Chronic Disease Visit [facility] Start: 09-20-2025 BP Controlled (<130/80) BP Controlled (<130/80) [facility] Start: 09-08-2025 Annual PCP Team Chronic Disease Visit Annual PCP Team Chronic Disease Visit [facility] Start: 09-08-2025 BP Controlled (<130/80) BP Controlled (<130/80) [facility] Start: 07-23-2025 BP Controlled (<130/80) BP Controlled (<130/80) [facility] Start: 07-20-2025 End: 07-20-2025 Patient encounter procedure 07/20/2025 1:40 PM EDT Office Visit Family [facility] [address] [place] [address] Aleksandar Jones MD [address] [place] [address] 6 month follow up Family [facility] Comment on above: 6 month follow up Start: 07-06-2025 Annual PCP Team Chronic Disease Visit Annual PCP Team Chronic Disease Visit [facility] Start: 05-06-2025 ambulatory Ambulatory Facility:[facility] Start: 05-04-2025 Screening for malignant neoplasm of lung Lung Cancer Screening [facility] Start: 05-02-2025 Hemoglobin A1c measurement HbA1C [facility] Start: 04-14-2025 Annual PCP Team Chronic Disease Visit Annual PCP Team Chronic Disease Visit [facility] Start: 04-14-2025 BP Controlled (<130/80) BP Controlled (<130/80) [facility] Start: 04-04-2025 End: 04-04-2025 Patient encounter procedure Cardiology Comment on above: 6 month check Start: 03-30-2025 Annual PCP Team Chronic Disease Visit Annual PCP Team Chronic Disease Visit [facility] Start: 03-30-2025 BP Controlled (<130/80) BP Controlled (<130/80) [facility] Start: 03-29-2025 End: 03-29-2025 Patient encounter procedure 03/29/2025 9:00 AM EDT Office Visit Family [facility] [address] [place] [address] Aleksandar Jones MD [address] [place] [address] 2 month follow up Family [facility] Comment on above: 2 month follow up Start: 03-19-2025 Annual PCP Team Chronic Disease Visit Annual PCP Team Chronic Disease Visit [facility] Start: 03-18-2025 End: 03-18-2025 Patient encounter procedure 03/18/2025 8:40 AM EDT Office Visit Family Estela [facility]pp[facility] [address] [place] [address] Radha Batista APRN.[employer] ATTENDANT [address] [place] [address] 2 month follow up Family Est[facility] Comment on above: 2 month follow up Start: 03-14-2025 End: 03-14-2025 Patient encounter procedure 03/14/2025 9:00 AM EDT Office Visit Family Estela [facility]pp[facility] [address] [place] [address] Aleksandar Jones MD [address] [place] [address] 2 month follow up [facility] Comment on above: 2 month follow up Start: 03-02-2025 Annual PCP Team Chronic Disease Visit Annual PCP Team Chronic Disease Visit [facility] Start: 03-02-2025 BP Controlled (<130/80) BP Controlled (<130/80) [facility] Start: 02-11-2025 End: 05-13-2025 Hepatitis B virus core Ab [Presence] in Serum HEPATITIS B CORE ANTIBODY TOTAL Lab Routine Hepatitis B core antibody positive Expected: 02/11/2025, Expires: 05/13/2025 [facility] Comment on above: Expected: 02/11/2025, Expires: Start: 02-11-2025 End: 05-13-2025 Hepatitis B virus core IgM Ab [Presence] in Serum HEPATITIS B CORE ANTIBODY IGM Lab Routine Hepatitis B core antibody positive Expected: 02/11/2025, Expires: 05/13/2025 [facility] Comment on above: Expected: 02/11/2025, Expires: Start: 02-11-2025 End: 05-13-2025 Hepatitis B virus DNA [Units/volume] in Serum HEPATITIS B VIRUS (HBV) DNA, QUANTITATIVE PCR, PLASMA/SERUM Lab Routine Hepatitis B core antibody positive Expected: 02/11/2025, Expires: 05/13/2025 [facility] Work Phone: Comment on above: Expected: 02/11/2025, Expires: Start: 02-11-2025 End: 05-13-2025 Hepatitis B virus surface Ab [Presence] in Serum HEPATITIS B SURFACE ANTIBODY Lab Routine Hepatitis B core antibody positive Expected: 02/11/2025, Expires: 05/13/2025 [facility] Comment on above: Expected: 02/11/2025, Expires: Start: 02-11-2025 End: 05-13-2025 Hepatitis B virus surface Ag [Presence] in Serum HEPATITIS B SURFACE ANTIGEN Lab Routine Hepatitis B core antibody positive Expected: 02/11/2025, Expires: 05/13/2025 [facility] Comment on above: Expected: 02/11/2025, Expires: Start: 02-04-2025 BP Controlled (<130/80) BP Controlled (<130/80) [facility] Start: 01-20-2025 BP Controlled (<130/80) BP Controlled (<130/80) [facility] Start: 01-19-2025 End: 01-19-2025 Patient encounter procedure 01/19/2025 2:20 PM EDT Appointment Mammogram [address] [place] [address] Encounter for screening mammogram for breast cancer [Z12.31] Mammogram Comment on above: Encounter for screening mammogram for br east cancer [Z12.31] Start: 01-18-2025 End: 02-03-2026 US Abdomen RUQ US ABD RIGHT UPPER QUADRANT Radiology Routine Elevated liver enzymes Expected: 01/18/2025, Expires: 02/03/2026 [facility] Work Phone: Comment on above: Expected: 01/18/2025, Expires: Start: 01-18-2025 End: 01-18-2025 Patient encounter procedure 01/18/2025 10:00 AM EDT Appointment Radiology [address] [place] [address] Elevated liver enzymes [R74.8] Radiology Comment on above: Elevated liver enzymes [R74.8] Start: 01-14-2025 End: 04-15-2025 Comprehensive metabolic 2000 panel - Serum or Plasma COMPREHENSIVE METABOLIC PANEL Lab Routine Liver function test abnormality Hyponatremia Expected: 01/14/2025, Expires: 04/15/2025 [facility] Work Phone: Comment on above: Expected: 01/14/2025, Expires: Start: 01-12-2025 Annual PCP Team Chronic Disease Visit Annual PCP Team Chronic Disease Visit [facility] Start: 01-12-2025 End: 04-13-2025 Comprehensive metabolic 2000 panel - Serum or Plasma COMPREHENSIVE METABOLIC PANEL Lab Routine Liver function test abnormality Acute diastolic CHF (congestive heart failure) (HCC) Expected: 01/12/2025, Expires: 04/13/2025 [facility] Work Phone: Comment on above: Expected: 01/12/2025, Expires: Start: 01-12-2025 End: 01-12-2025 Patient encounter procedure 01/12/2025 10:00 AM EDT Office Visit Family Medicine [facility] [address] [place] [address] Aleksandar Jones MD [address] [place] [address] follow up low sodium [facility] Comment on above: follow up low sodium Start: 01-07-2025 End: 01-07-2025 Patient encounter procedure 01/07/2025 1:30 PM EDT Appointment Mammogram [address] [place] [address] Encounter for screening mammogram for breast cancer [Z12.31] Mammogram Comment on above: Encounter for screening mammogram for br east cancer [Z12.31] Start: 01-04-2025 End: 04-05-2025 Basic metabolic 2000 panel - Serum or Plasma BASIC METABOLIC PANEL Lab Routine Hyponatremia Expected: 01/04/2025, Expires: 04/05/2025 [facility] Work Phone: Comment on above: Expected: 01/04/2025, Expires: Start: 01-04-2025 End: 04-05-2025 Osmolality of Urine OSMOLALITY URINE Lab Routine Hyponatremia Expected: 01/04/2025, Expires: 04/05/2025 [facility] Comment on above: Expected: 01/04/2025, Expires: Start: 01-04-2025 End: 04-05-2025 Sodium [Moles/volume] in Urine collected for unspecified duration SODIUM RANDOM URINE Lab Routine Hyponatremia Expected: 01/04/2025, Expires: 04/05/2025 [facility] Comment on above: Expected: 01/04/2025, Expires: Start: 12-31-2024 End: 04-01-2025 Basic metabolic 2000 panel - Serum or Plasma BASIC METABOLIC PANEL Lab Routine Hyponatremia Expected: 12/31/2024, Expires: 04/01/2025 [facility] Comment on above: Expected: 12/31/2024, Expires: Start: 12-31-2024 End: 04-01-2025 CBC W Auto Differential panel - Blood COMPLETE BLOOD COUNT AND DIFFERENTIAL Lab Routine Leukocytosis, unspecified type Expected: 12/31/2024, Expires: 04/01/2025 [facility] Work Phone: Comment on above: Expected: 12/31/2024, Expires: Start: 12-30-2024 End: 03-31-2025 HEP BE ANTIBODY HEP BE ANTIBODY Lab Routine Exposure to hepatitis B Expected: 12/30/2024, Expires: 03/31/2025 [facility] Comment on above: Expected: 12/30/2024, Expires: Start: 12-30-2024 End: 03-31-2025 Hepatitis B virus core Ab [Presence] in Serum HEPATITIS B CORE ANTIBODY TOTAL Lab Routine Exposure to hepatitis B Expected: 12/30/2024, Expires: 03/31/2025 [facility] Comment on above: Expected: 12/30/2024, Expires: Start: 12-30-2024 End: 03-31-2025 Hepatitis B virus core IgM Ab [Presence] in Serum HEPATITIS B CORE ANTIBODY IGM Lab Routine Exposure to hepatitis B Expected: 12/30/2024, Expires: 03/31/2025 [facility] Comment on above: Expected: 12/30/2024, Expires: Start: 12-30-2024 End: 03-31-2025 Hepatitis B virus DNA [Units/volume] in Serum HEPATITIS B VIRUS (HBV) DNA, QUANTITATIVE PCR, PLASMA/SERUM Lab Routine Exposure to hepatitis B Expected: 12/30/2024, Expires: 03/31/2025 [facility] Work Phone: Comment on above: Expected: 12/30/2024, Expires: Start: 12-30-2024 End: 03-31-2025 Hepatitis B virus e Ag [Presence] in Serum or Plasma by Immunoassay HEP BE ANTIGEN Lab Routine Exposure to hepatitis B Expected: 12/30/2024, Expires: 03/31/2025 [facility] Comment on above: Expected: 12/30/2024, Expires: Start: 12-30-2024 End: 03-31-2025 Hepatitis B virus surface Ab [Presence] in Serum HEPATITIS B SURFACE ANTIBODY Lab Routine Exposure to hepatitis B Expected: 12/30/2024, Expires: 03/31/2025 [facility] Comment on above: Expected: 12/30/2024, Expires: Start: 12-30-2024 End: 03-31-2025 Hepatitis B virus surface Ag [Presence] in Serum HEPATITIS B SURFACE ANTIGEN Lab Routine Exposure to hepatitis B Expected: 12/30/2024, Expires: 03/31/2025 [facility] Comment on above: Expected: 12/30/2024, Expires: Start: 12-28-2024 End: 12-28-2025 HEP ACUTE PANEL/RNA [facility] Comment on above: Expected: 12/28/2024, Expires: Start: 12-28-2024 End: 12-28-2025 Hepatic function 2000 panel - Serum or Plasma [facility] Work Phone: Comment on above: Expected: 12/28/2024, Expires: Start: 12-28-2024 End: 12-28-2024 Patient encounter procedure Family [facility] Comment on above: 3 month follow up Annual/2-4 week foll ow up Start: 12-21-2024 Bacteria identified in Blood by Culture Blood Culture [facility] Start: 12-21-2024 Bacteria identified in Urine by Culture Urine Culture [facility] Start: 12-21-2024 [facility] Start: 12-21-2024 End: 12-21-2024 [facility] Start: 12-07-2024 End: 12-07-2024 Patient encounter procedure 12/07/2024 10:00 AM EST Office Visit Family Medicine [facility] [address] [place] [address] Radha Batista APRN.[employer] ATTENDANT [address] [facility] [place] [facility] [place] [address] 1 month follow up Family [facility] Comment on above: 1 month follow up Start: 12-01-2024 End: 12-01-2024 Patient encounter procedure 12/01/2024 12:30 PM EST Office Visit Vasculary Surgery [address] [place] [address] Weakness of both lower extremities [R29.898] Vasculary Surgery Comment on above: Weakness of both lower extremities [R29. 898] Start: 11-26-2024 End: 11-26-2024 Patient encounter procedure 11/26/2024 8:00 AM EST Office Visit Vasculary Surgery [address] [place] [address] Weakness of both lower extremities [R29.898] [facility] Comment on above: Weakness of both lower extremities [R29. 898] Start: 11-17-2024 Glaucoma screening Dilated Retinal Exam [facility] Start: 11-12-2024 Patient discharge [facility] Start: 11-11-2024 [facility] Start: 11-11-2024 Physiotherapy of chest [facility] Start: 11-10-2024 Care planning and problem solving actions [facility] Start: 11-10-2024 Aspiration precautions [facility] Start: 11-10-2024 Assessment of risk of venous thromboembolism [facility] Start: 11-10-2024 Care regimes management [facility] Start: 11-10-2024 Continuous positive airway pressure ventilation treatment [facility] Start: 11-10-2024 Insertion of catheter into peripheral vein [facility] Start: 11-10-2024 Measuring intake and output [facility] Start: 11-10-2024 Notification of physician [facility] Start: 11-10-2024 Oxygen therapy [facility] Start: 11-10-2024 Providing care according to standard [facility] Start: 11-10-2024 Provision of activity privileges [facility] Start: 11-10-2024 Referral to service [facility] Start: 11-10-2024 End: 11-10-2024 [facility] Start: 11-10-2024 Respiratory secretion precautions [facility] Start: 11-10-2024 Following clinical pathway protocol [facility] Start: 11-10-2024 Inhalation therapy procedure [facility] Start: 11-09-2024 Admission procedure [facility] Start: 11-09-2024 End: 02-08-2025 INFLUENZA A&B MOLECULAR (POC) INFLUENZA A&B MOLECULAR (POC) Microbiology Routine URI, acute Expected: 11/09/2024, Expires: 02/08/2025 [facility] Work Phone: Comment on above: Expected: 11/09/2024, Expires: Start: 11-05-2024 Annual PCP Team Chronic Disease Visit Annual PCP Team Chronic Disease Visit [facility] Start: 11-05-2024 End: 02-04-2025 Basic metabolic 2000 panel - Serum or Plasma BASIC METABOLIC PANEL Lab Routine Hyponatremia Expected: 11/05/2024, Expires: 02/04/2025 [facility] Work Phone: Comment on above: Expected: 11/05/2024, Expires: Start: 11-05-2024 BP Controlled (<130/80) BP Controlled (<130/80) [facility] Start: 11-05-2024 End: 02-04-2025 CBC W Auto Differential panel - Blood COMPLETE BLOOD COUNT AND DIFFERENTIAL Lab Routine Hyponatremia Expected: 11/05/2024, Expires: 02/04/2025 [facility] Comment on above: Expected: 11/05/2024, Expires: Start: 11-05-2024 Hepatitis B surface antibody level LDL Cholesterol [facility] Start: 11-02-2024 End: 02-01-2025 Aldolase [Enzymatic activity/volume] in Serum or Plasma [facility] Comment on above: Expected: 11/02/2024, Expires: Start: 11-02-2024 End: 02-01-2025 CBC W Auto Differential panel - Blood [facility] Comment on above: Expected: 11/02/2024, Expires: Start: 11-02-2024 End: 02-01-2025 Comprehensive metabolic 2000 panel - Serum or Plasma [facility] Comment on above: Expected: 11/02/2024, Expires: Start: 11-02-2024 End: 02-01-2025 Creatine kinase [Enzymatic activity/volume] in Serum or Plasma [facility] Comment on above: Expected: 11/02/2024, Expires: Start: 11-02-2024 End: 02-01-2025 Hemoglobin A1c in Blood [facility] Work Phone: Comment on above: Expected: 11/02/2024, Expires: Start: 11-02-2024 End: 02-01-2025 LIPID PANEL, NONFASTING [facility] Comment on above: Expected: 11/02/2024, Expires: Start: 10-14-2024 [facility] Start: 09-28-2024 End: 09-28-2024 Patient encounter procedure 09/28/2024 1:00 PM EST Office Visit [facility] [place] [address] [facility], [place] [id number] Radha Batista APRN.TANNING SALON ATTENDANT [address] [facility] [place] [address] 3 month follow up [facility] [place] Comment on above: 3 month follow up Start: 09-22-2024 BP Controlled (<130/80) BP Controlled (<130/80) [facility] Start: 09-20-2024 End: 09-20-2024 Patient encounter procedure Cardiology Comment on above: 1 yr follow up 3 month follow up Start: 09-19-2024 Annual PCP Team Chronic Disease Visit Annual PCP Team Chronic Disease Visit [facility] Start: 09-07-2024 End: 09-07-2024 Patient encounter procedure 09/07/2024 10:00 AM EST Office Visit [facility] [place] [address] [place] [address] Shelia Salmon RUBBER CUTTER AND SHAPE CARVER.TANNING SALON ATTENDANT [address] [facility], [place] [id number] 2 week f/u [facility] [place] Comment on above: 2 week f/u Start: 09-02-2024 Hemoglobin A1c measurement HbA1C [facility] Start: 07-06-2024 End: 10-05-2024 25-hydroxyvitamin D3 [Mass/volume] in Serum or Plasma VITAMIN D 25 HYDROXY Lab Routine Vitamin D deficiency Expected: 07/06/2024, Expires: 10/05/2024 [facility] Comment on above: Expected: 07/06/2024, Expires: Start: 07-06-2024 End: 10-05-2024 CBC W Auto Differential panel - Blood COMPLETE BLOOD COUNT AND DIFFERENTIAL Lab Routine Fatigue, unspecified type Expected: 07/06/2024, Expires: 10/05/2024 [facility] Work Phone: Comment on above: Expected: 07/06/2024, Expires: Start: 07-06-2024 End: 10-05-2024 Comprehensive metabolic 2000 panel - Serum or Plasma COMPREHENSIVE METABOLIC PANEL Lab Routine Uncontrolled type 2 diabetes mellitus with hyperglycemia (HCC) Fatigue, unspecified type Primary hypertension Pure hypercholesterolemia Expected: 07/06/2024, Expires: 10/05/2024 [facility] Comment on above: Expected: 07/06/2024, Expires: Start: 07-06-2024 End: 10-05-2024 Hemoglobin A1c in Blood HEMOGLOBIN A1C Lab Routine Uncontrolled type 2 diabetes mellitus with hyperglycemia (HCC) Expected: 07/06/2024, Expires: 10/05/2024 [facility] Comment on above: Expected: 07/06/2024, Expires: Start: 07-06-2024 End: 10-05-2024 Lipid 1996 panel - Serum or Plasma LIPID PANEL BASIC Lab Routine Pure hypercholesterolemia Expected: 07/06/2024, Expires: 10/05/2024 [facility] Comment on above: Expected: 07/06/2024, Expires: Start: 07-06-2024 End: 10-05-2024 Thyrotropin [Units/volume] in Serum or Plasma THYROID STIMULATING HORMONE Lab Routine Fatigue, unspecified type Expected: 07/06/2024, Expires: 10/05/2024 [facility] Comment on above: Expected: 07/06/2024, Expires: Start: 06-30-2024 End: 06-30-2024 Patient encounter procedure 06/30/2024 8:40 AM EDT Office Visit [facility] [place] [address] [place] [address] Radha Batista, ADIEL.TANNING SALON ATTENDANT [address] [place] [address] 3 month follow up [facility] [place] Comment on above: 3 month follow up Start: 06-13-2024 Influenza vaccination Influenza Vaccine (#1) [facility] Start: 05-05-2024 Hemoglobin A1c measurement HbA1C [facility] Start: 05-04-2024 End: 05-04-2024 Patient encounter procedure 05/04/2024 9:00 AM EDT Office Visit [facility] [place] [address] [place] [address] Radha Batista, ADIEL.TANNING SALON ATTENDANT [address] [place] [address] 6 month follow up [facility] [place] Comment on above: 6 month follow up Start: 04-29-2024 ANNUAL PCP TEAM CHRONIC DISEASE VISIT ANNUAL PCP TEAM CHRONIC DISEASE VISIT [facility] Start: 04-29-2024 Hepatitis B surface antibody level LDL CHOLESTEROL [facility] Start: 04-01-2024 End: 04-01-2024 ambulatory 04/01/2024 10:00 AM EDT OT/PT/Speech Visit [facility] [address] [place] [address] Gerardo Davis, PT [address] [place] [address] R29.898 (ICD-10-CM) - Leg weakness, bilateral [facility] Comment on above: R29.898 (ICD-10-CM) - Leg weakness, bila teral Start: 03-30-2024 End: 03-30-2024 ambulatory 03/30/2024 11:30 AM EDT OT/PT/Speech Visit [facility] [address] [place] [address] Gerardo Davis, PT [address] [place] [address] R29.898 (ICD-10-CM) - Leg weakness, bilateral [facility] Comment on above: R29.898 (ICD-10-CM) - Leg weakness, bila teral Start: 03-30-2024 End: 03-30-2024 Patient encounter procedure 03/30/2024 8:40 AM EDT Office Visit [facility] [address] [facility] [place] [address] Radha Batista APRN.TANNING [employer] ATTENDANT [address] [place] [address] [facility] Comment on above: Medication Review Start: 03-25-2024 End: 03-25-2024 ambulatory 03/25/2024 11:45 AM EDT OT/PT/Speech Visit [facility] [address] [place] [address] Jaci Brady, SHEET METAL APPRENTICE [address] [place] [address] R29.898 (ICD-10-CM) - Leg weakness, bilateral [facility] Comment on above: R29.898 (ICD-10-CM) - Leg weakness, bila teral Start: 03-23-2024 End: 03-23-2024 ambulatory 03/23/2024 10:45 AM EDT OT/PT/Speech Visit [facility] [address] [place] [address] Gerardo Davis, PT [address] [place] [address] R29.898 (ICD-10-CM) - Leg weakness, bilateral [facility] Comment on above: R29.898 (ICD-10-CM) - Leg weakness, bila teral Start: 03-19-2024 End: 03-19-2024 Patient encounter procedure 03/19/2024 8:40 AM EDT Office Visit [facility] [place] [address] [place] [address] Radha Batista APRN.TANNING SALON ATTENDANT [address] [place] [address] Anxiety/ weakness in legs. [facility] [place] Comment on above: Anxiety/ weakness in legs. Start: 03-18-2024 End: 03-18-2024 ambulatory 03/18/2024 11:45 AM EDT OT/PT/Speech Visit [facility] [address] [place] [address] Jaci Brady, SHEET METAL APPRENTICE [address] [place] [place] [address] R29.898 (ICD-10-CM) - Leg weakness, bilateral [facility] Comment on above: R29.898 (ICD-10-CM) - Leg weakness, bila teral Start: 03-16-2024 End: 03-16-2024 ambulatory 03/16/2024 11:30 AM EDT OT/PT/Speech Visit [facility] [address] [place] [address] Gerardo Davis, PT [address] [place] [address] R29.898 (ICD-10-CM) - Leg weakness, bilateral [facility] Comment on above: R29.898 (ICD-10-CM) - Leg weakness, bila teral Start: 03-05-2024 End: 06-04-2024 CBC W Auto Differential panel - Blood COMPLETE BLOOD COUNT AND DIFFERENTIAL Lab Routine Thrombocytopenia (HCC) Expected: 03/05/2024, Expires: 06/04/2024 [facility] Work Phone: Comment on above: Expected: 03/05/2024, Expires: Start: 03-05-2024 End: 06-04-2024 Hepatic function 2000 panel - Serum or Plasma HEPATIC FUNCTION PNL Lab Routine Elevated liver enzymes Expected: 03/05/2024, Expires: 06/04/2024 [facility] Comment on above: Expected: 03/05/2024, Expires: 4 Start: 03-04-2024 End: 03-04-2024 ambulatory 03/04/2024 11:45 AM EDT OT/PT/Speech Visit [facility] [address] [place] [address] Jaci Brady, SHEET METAL APPRENTICE [address] [place] [address] R29.898 (ICD-10-CM) - Leg weakness, bilateral [facility] Comment on above: R29.898 (ICD-10-CM) - Leg weakness, bila teral Start: 03-02-2024 End: 03-02-2024 ambulatory 03/02/2024 2:45 PM EDT OT/PT/Speech Visit [facility] [address] [place] [address] Gerardo Davis, PT [address] [place] [address] R29.898 (ICD-10-CM) - Leg weakness, bilateral [facility] Comment on above: R29.898 (ICD-10-CM) - Leg weakness, bila teral Start: 03-02-2024 End: 06-01-2024 Bacteria identified in Urine by Culture [facility] Work Phone: Comment on above: Expected: 03/02/2024, Expires: 4 Start: 03-02-2024 End: 03-02-2024 Patient encounter procedure 03/02/2024 8:40 AM EDT Office Visit [facility] [place] [address] [place] [address] Radha Batista, RUBBER CUTTER AND SHAPE CARVER.TANNING SALON ATTENDANT [address] [place] [address] Medication Review [facility] [place] Comment on above: Medication Review Start: 02-26-2024 End: 02-26-2024 ambulatory 02/26/2024 10:00 AM EDT OT/PT/Speech Visit [facility] [address] [place] [address] Gerardo Davis, PT [address] [place] [address] R29.898 (ICD-10-CM) - Leg weakness, bilateral [facility] Comment on above: R29.898 (ICD-10-CM) - Leg weakness, bila teral Start: 02-24-2024 End: 02-24-2024 ambulatory 02/24/2024 11:00 AM EDT OT/PT/Speech Visit [facility] [address] [place] [address] Brenda Bradyh, SHEET METAL APPRENTICE [address] [place] [address] R29.898 (ICD-10-CM) - Leg weakness, bilateral [facility] Comment on above: R29.898 (ICD-10-CM) - Leg weakness, bila teral Start: 02-19-2024 End: 02-19-2024 ambulatory 02/19/2024 9:15 AM EDT OT/PT/Speech Visit [facility] [address] [place] [address] Gerardo Davis, PT [address] [place] [address] R29.898 (ICD-10-CM) - Leg weakness, bilateral [facility] Comment on above: R29.898 (ICD-10-CM) - Leg weakness, bila teral Start: 02-17-2024 End: 02-17-2024 ambulatory 02/17/2024 8:45 AM EDT OT/PT/Speech Visit [facility] [address] [place] [address] Jaci Brady, SHEET METAL APPRENTICE [address] [place] [address] R29.898 (ICD-10-CM) - Leg weakness, bilateral [facility] Comment on above: R29.898 (ICD-10-CM) - Leg weakness, bila teral Start: 02-12-2024 End: 02-12-2024 ambulatory 02/12/2024 9:30 AM EDT OT/PT/Speech Visit [facility] [address] [place] [address] Jaci Brady, SHEET METAL APPRENTICE [address] [place] [address] R29.898 (ICD-10-CM) - Leg weakness, bilateral [facility] Comment on above: R29.898 (ICD-10-CM) - Leg weakness, bila teral Start: 02-10-2024 End: 02-10-2024 ambulatory 02/10/2024 2:45 PM EDT OT/PT/Speech Visit [facility] [address] [place] [address] Gerardo Davis, PT [address] [place] [address] R29.898 (ICD-10-CM) - Leg weakness, bilateral [facility] Comment on above: R29.898 (ICD-10-CM) - Leg weakness, bila teral Start: 02-05-2024 End: 02-05-2024 ambulatory 02/05/2024 8:45 AM EDT OT/PT/Speech Visit [facility] [address] [place] [address] Jaci Brady, SHEET METAL APPRENTICE [address] [place] [address] R29.898 (ICD-10-CM) - Leg weakness, bilateral [facility] Comment on above: R29.898 (ICD-10-CM) - Leg weakness, bila teral Start: 02-03-2024 Shingrix Vaccine (2 of 2) Shingrix Vaccine (2 of 2) [facility] Start: 12-21-2023 ANNUAL PCP TEAM CHRONIC DISEASE VISIT ANNUAL PCP TEAM CHRONIC DISEASE VISIT [facility] Start: 12-13-2023 [facility] Start: 2023 RSV Vaccine (1 - 1-dose 60+ series) RSV Vaccine (1 - 1-dose 60+ series) [facility] Start: 10-30-2023 Hemoglobin A1c/Hemoglobin.total in Blood HBA1C [facility] Start: 10-13-2023 Behavioral Health Screening Behavioral Health Screening [facility] Start: 10-13-2023 Depression Assessment Depression Assessment [facility] Start: 09-17-2023 Hepatitis C antibody, confirmatory test DILATED RETINAL EXAM [facility] Start: 08-28-2023 ANNUAL PCP TEAM CHRONIC DISEASE VISIT ANNUAL PCP TEAM CHRONIC DISEASE VISIT [facility] Start: 08-21-2023 Hepatitis B surface antibody level LDL CHOLESTEROL [facility] Start: 08-18-2023 Blood chemistry [facility] Start: 08-17-2023 Blood chemistry [facility] Start: 08-16-2023 Patient discharge [facility] Start: 08-15-2023 Following clinical pathway protocol [facility] Start: 08-14-2023 Assessment of risk of venous thromboembolism [facility] Start: 08-14-2023 Bacteria identified in Sputum by Culture [facility] Start: 08-14-2023 Care regimes management [facility] Start: 08-14-2023 Continuous positive airway pressure ventilation treatment [facility] Start: 08-14-2023 Fall prevention [facility] Start: 08-14-2023 Incentive spirometry [facility] Start: 08-14-2023 Inhalation therapy procedure [facility] Start: 08-14-2023 Insertion of catheter into peripheral vein [facility] Start: 08-14-2023 Introduction of urinary catheter [facility] Start: 08-14-2023 Measuring intake and output [facility] Start: 08-14-2023 Notification of physician [facility] Start: 08-14-2023 Oxygen therapy [facility] Start: 08-14-2023 Providing care according to standard [facility] Start: 08-14-2023 Provision of activity privileges [facility] Start: 08-14-2023 Referral to occupational therapist [facility] Start: 08-14-2023 Referral to service [facility] Start: 08-14-2023 [facility] Start: 08-14-2023 Gas panel - Arterial blood [facility] Start: 08-14-2023 Hospital admission, emergency, from emergency room, medical nature [facility] Start: 08-14-2023 Verification routine [facility] Start: 08-14-2023 Admission procedure [facility] Start: 08-14-2023 [facility] Start: 08-14-2023 Respiratory secretion precautions [facility] Start: 08-14-2023 Respiratory Panel (PCR) Respiratory Panel (PCR) [facility] Start: 06-13-2023 Covid-19 Vaccine ( season) Covid-19 Vaccine ( season) [facility] Start: 06-13-2023 Influenza vaccination [facility] Start: 04-29-2023 End: 06-29-2023 Bacteria identified in Urine by Culture [facility] Work Phone: Comment on above: Expected: 04/29/2023, Expires: 3 Start: 04-29-2023 End: 06-29-2023 Comprehensive metabolic 2000 panel - Serum or Plasma [facility] Work Phone: Comment on above: Expected: 04/29/2023, Expires: 3 Start: 04-29-2023 End: 06-29-2023 Hemoglobin A1c in Blood [facility] Work Phone: Comment on above: Expected: 04/29/2023, Expires: 3 Start: 04-29-2023 End: 06-29-2023 LIPID PANEL, NONFASTING [facility] Work Phone: Comment on above: Expected: 04/29/2023, Expires: 3 Start: 04-29-2023 End: 06-29-2023 Magnesium [Mass/volume] in Serum or Plasma [facility] Work Phone: Comment on above: Expected: 04/29/2023, Expires: 3 Start: 04-29-2023 End: 06-29-2023 Thyrotropin [Units/volume] in Serum or Plasma [facility] Work Phone: Comment on above: Expected: 04/29/2023, Expires: 3 Start: 04-29-2023 End: 06-29-2023 Thyroxine (T4) free [Mass/volume] in Serum or Plasma [facility] Work Phone: Comment on above: Expected: 04/29/2023, Expires: 3 Start: 04-29-2023 End: 06-29-2023 Urinalysis complete panel - Urine [facility] Work Phone: Comment on above: Expected: 04/29/2023, Expires: 3 Start: 04-18-2023 Influenza vaccination LUNG CANCER SCREENING [facility] Start: 04-18-2023 Screening for malignant neoplasm of lung Lung Cancer Screening [facility] Start: 03-27-2023 ANNUAL PCP TEAM CHRONIC DISEASE VISIT ANNUAL PCP TEAM CHRONIC DISEASE VISIT [facility] Start: 02-18-2023 Hemoglobin A1c/Hemoglobin.total in Blood HBA1C [facility] Start: 01-30-2023 ANNUAL PCP TEAM CHRONIC DISEASE VISIT ANNUAL PCP TEAM CHRONIC DISEASE VISIT [facility] Start: 01-14-2023 Adult depression screening assessment DEPRESSION SCREENING [facility] Start: 01-14-2023 ANNUAL PCP TEAM CHRONIC DISEASE VISIT ANNUAL PCP TEAM CHRONIC DISEASE VISIT [facility] Start: 01-13-2023 Urine microalbumin profile [facility] Start: 10-26-2022 Hepatitis C antibody, confirmatory test DILATED RETINAL EXAM [facility] Start: 10-13-2022 DEPRESSION ASSESSMENT DEPRESSION ASSESSMENT [facility] Start: 09-26-2022 ANNUAL PCP TEAM CHRONIC DISEASE VISIT ANNUAL PCP TEAM CHRONIC DISEASE VISIT [facility] Start: 08-13-2022 3 comp foot exam completed DIABETIC FOOT EXAM [facility] Start: 08-13-2022 Diabetic foot examination Diabetic Foot Exam [facility] Start: 06-27-2022 Mammography [facility] Start: 06-27-2022 Screening for malignant neoplasm of breast Mammogram Screening [facility] Start: 06-24-2022 COVID-19 VACCINE (5 - Booster for Moderna series) COVID-19 VACCINE (5 - Booster for Moderna series) [facility] Start: 06-13-2022 Influenza vaccination INFLUENZA (#1) [facility] Start: 06-05-2022 Suicide precautions [facility] Work Phone: Start: 06-05-2022 Consultation [facility] Work Phone: Start: 01-14-2022 End: 03-16-2022 ALBUMIN/CREAT RATIO RND UR ALBUMIN/CREAT RATIO RND UR Lab Routine Type 2 diabetes mellitus with diabetic nephropathy, with long-term current use of insulin ([facility]) Expected: 01/14/2022, Expires: 03/16/2022 [facility] Work Phone: Comment on above: Expected: 01/14/2022, Expires: 2 Start: 01-14-2022 End: 03-16-2022 Basic metabolic 2000 panel - Serum or Plasma BASIC METABOLIC PNL Lab Routine Water intoxication Expected: 01/14/2022, Expires: 03/16/2022 [facility] Work Phone: Comment on above: Expected: 01/14/2022, Expires: 2 Start: 01-14-2022 End: 03-16-2022 Hemoglobin A1c/Hemoglobin.total in Blood HGB A1C Lab Routine Type 2 diabetes mellitus with diabetic nephropathy, with long-term current use of insulin (HCC) Expected: 01/14/2022, Expires: 03/16/2022 [facility] Work Phone: Comment on above: Expected: 01/14/2022, Expires: 2 Start: 01-14-2022 End: 03-16-2022 LIPID PANEL BASIC LIPID PANEL BASIC Lab Routine Type 2 diabetes mellitus with diabetic nephropathy, with long-term current use of insulin (HCC) Expected: 01/14/2022, Expires: 03/16/2022 [facility] Work Phone: Comment on above: Expected: 01/14/2022, Expires: 2 Start: 01-14-2022 End: 03-16-2022 VITAMIN D 25 HYDROXY VITAMIN D 25 HYDROXY Lab Routine Vitamin D deficiency Expected: 01/14/2022, Expires: 03/16/2022 [facility] Work Phone: Comment on above: Expected: 01/14/2022, Expires: 2 Start: 01-02-2022 COVID-19 VACCINE (4 - Booster for Moderna series) COVID-19 VACCINE (4 - Booster for Moderna series) [facility] Start: 11-13-2021 Influenza vaccination LUNG CANCER SCREENING [facility] Start: 10-13-2021 DEPRESSION ASSESSMENT DEPRESSION ASSESSMENT [facility] Start: 07-26-2021 Hepatitis B surface antibody level LDL CHOLESTEROL [facility] Start: 05-23-2021 Hemoglobin A1c/Hemoglobin.total in Blood HBA1C [facility] Start: 04-18-2021 3 comp foot exam completed DIABETIC FOOT EXAM [facility] Start: 08-05-2020 Adult depression screening assessment DEPRESSION SCREENING [facility] Start: 06-13-2020 Pneumococcal vaccination [facility] Start: 01-13-2019 FECAL OCCULT BLOOD FECAL OCCULT BLOOD [facility] Start: 01-13-2019 Screening for malignant neoplasm of colon Fecal Occult Blood [facility] Start: 08-08-2015 PNEUMOCOCCAL (2 - PCV) PNEUMOCOCCAL (2 - PCV) [facility] Start: 08-08-2015 Pneumococcal vaccination Pneumococcal Vaccine (2 - PCV) [facility] Start: 2013 SHINGRIX VACCINE (1 of 2) SHINGRIX VACCINE (1 of 2) [facility] Start: 2008 COLOGUARD (FIT-DNA) COLOGUARD (FIT-DNA) [facility] Start: [address] COLONOGRAPHY [facility] Start: 2008 Screening for malignant neoplasm of colon [facility] Start: 2008 SIGMOIDOSCOPY SIGMOIDOSCOPY [facility] Start: 1982 HEPATITIS B (1 of 3 - Risk 3-dose series) HEPATITIS B (1 of 3 - Risk 3-dose series) [facility] Start: 1981 Anxiety Screening Anxiety Screening [facility] Start: 1981 BP Controlled (<130/80) BP Controlled (<130/80) [facility] Start: 1981 Depression Screening Depression Screening [facility] Start: 1981 HIV SCREENING HIV SCREENING [facility] Start: 1981 HIV screening HIV Screening [facility] Start: 1981 SPIROMETRY SPIROMETRY [facility] Start: 1963 HEPATITIS B (1 of 3 - 3-dose series) HEPATITIS B (1 of 3 - 3-dose series) [facility] BACTERIAL VAGINOSIS NAAT BACTERIAL VAGINOSIS NAAT Lab Routine Itching in the vaginal area 08/29/2023 3:29 PM EST [facility] Work Phone: DIONICIO/TRICHOMONAS NAAT DIONICIO/TRICHOMONAS NAAT Lab Routine Itching in the vaginal area 08/29/2023 3:29 PM EST [facility] Work Phone: CBC W Auto Different ial panel - Blood CBC + DIFF Lab Routine Weight loss 04/29/2023 3:51 PM EDT [facility] Work Phone: End: 07-23-2025 DBT Breast - bilateral screening [facility] Radiology Routine Encounter for screening mammogram for breast cancer 1 Occurrences starting 06/23/2024 until 07/23/2025 [facility] Work Phone: Comment on above: 1 Occurrences starting 06/23/2024 until 07/23/2025 DBT Breast - bilater al screening [facility] [place] Radiology Routine Encounter for screening mammogram for breast cancer 01/19/2025 2:51 PM EDT [facility] Work Phone: End: 04-29-2024 ECG COMPLETE ECG COMPLETE ECG Routine Chest pain, unspecified type 1 Occurrences starting 04/29/2023 until 04/29/2024 [facility] Work Phone: Comment on above: 1 Occurrences starting 04/29/2023 until 04/29/2024 ECG COMPLETE ECG COMPLETE ECG Routine Primary hypertension Pure hypercholesterolemia SVT (supraventricular tachycardia) (HCC) Tachycardia 09/20/2024 12:57 PM EST [facility] Work Phone: Hemoglobin.gastroint est inal.lower [Presence] in Stool by Immunoassay [facility] OCCULT BLOOD TEST Lab Routine Weight loss Ordered: 04/29/2023 [facility] Work Phone: Comment on above: Ordered: 04/29/2023 End: 08-14-2024 [facility] SCREENING [facility] SCREENING Radiology Routine Encounter for screening mammogram for breast cancer 1 Occurrences starting 07/16/2023 until 08/14/2024 [facility] Work Phone: Comment on above: 1 Occurrences starting 07/16/2023 until 08/14/2024 NM CARDIAC PERF STRESS/PHARM NM CARDIAC PERF STRESS/PHARM Radiology Routine Chest pain, unspecified type Ordered: 04/29/2023 [facility] Work Phone: Comment on above: Ordered: 04/29/2023 Patient Education [facility] Work Phone: Patient referral [facility] Work Phone: Respiratory pathogen s DNA and RNA panel - Respiratory specimen by LUIS M with probe detection [facility] End: 09-06-2023 Screening mammography bi 2-view breast inc cad [facility] SCREENING Radiology Routine Encounter for screening mammogram for breast cancer 1 Occurrences starting 08/07/2022 until 09/06/2023 [facility] Work Phone: Comment on above: 1 Occurrences starting 08/07/2022 until 09/06/[address] [facility] End: 11-02-2025 US.doppler Extremity arteries - bilateral for physiologic artery study PVR ANK PRESS ASHELY [facility] LAB Vascular Lab Routine Weakness of both lower extremities 1 Occurrences starting 11/02/2024 until 11/02/2025 [facility] Comment on above: 1 Occurrences starting 11/02/2024 until 11/02/2025 [facility] Immunizations Immunization Date Immunization Notes Care Provider Rayna kern 09-08-2024 pneumococcal conjuga te (PCV20) vaccine, 20 valent (PREVNAR 20) Radha Batista [employer].TANNING SALON ATTENDANT Work Phone: [facility] 09-08-2024 pneumococcal Conjuga te, unspecified formulation Radha Batista [employer].TANNING SALON ATTENDANT Work Phone: [facility] Work Phone: 07-06-2024 COVID-19 vaccine, ag e 12+ yr (PFIZER-BIONTECH) Radha Batista [employer].TANNING SALON ATTENDANT Work Phone: [facility] 07-06-2024 influenza, seasonal, injectable Radha Batista [employer].TANNING SALON ATTENDANT Work Phone: [facility] 12-09-2023 respiratory syncytia l virus (RSV) vaccine, bivalent (ABRYSVO) Radha Batista [employer].TANNING SALON ATTENDANT Work Phone: [facility] 12-09-2023 zoster vaccine recombinant Radha Batista [employer].TANNING SALON ATTENDANT Work Phone: [facility] 11-05-2023 COVID-19 vaccine, ag e 12+ yr, season (PFIZER-BIONTECH) Meredith Moore [employer].TANNING SALON ATTENDANT Work Phone: [facility] 11-05-2023 influenza, injectabl e, quadrivalent, contains preservative Meredith Moore [employer].TANNING SALON ATTENDANT Work Phone: [facility] 11-05-2023 influenza virus vaccine, unspecified formulation Radha Batista [employer].TANNING SALON ATTENDANT Work Phone: [facility] 08-22-2022 influenza, injectabl e, quadrivalent, preservative free Adriano Menezes [employer].TANNING SAL[employer] ATTENDANT Work Phone: [facility] 08-22-2022 influenza virus vaccine, unspecified formulation Fuentes Renee MD Work Phone: [facility] 06-29-2021 influenza, injectabl e, quadrivalent, contains preservative Aleksandar Jones MD Work Phone: [facility] 11-29-2020 COVID-19 vaccine, fu ll dose (MODERNA) Aleksandar Jones MD Work Phone: [facility] 11-01-2020 COVID-19 vaccine, fu ll dose (MODERNA) Aleksandar Jones MD Work Phone: [facility] 07-19-2020 influenza, injectabl e, quadrivalent, contains preservative Aleksandar Jones MD Work Phone: [facility] 10-18-2019 Influenza virus vaccine [facility] 10-18-2019 influenza, injectabl e, quadrivalent, contains preservative Aleksandar Jones MD Work Phone: [facility] Work Phone: 06-13-2019 influenza, seasonal, injectable Adriano Pendlelink [employer].TANNING SALON ATTENDANT Work Phone: [facility] 06-13-2019 pneumococcal polysaccharide vaccine, 23 valent Radha Haagen [employer].TANNING SALON ATTENDANT Work Phone: [facility] 07-18-2018 tetanus toxoid, redu regino diphtheria toxoid, and acellular pertussis vaccine, adsorbed [facility] 07-17-2018 Influenza virus vaccine [facility] 07-17-2018 influenza, injectabl e, quadrivalent, contains preservative Aleksandar Jones MD Work Phone: [facility] 08-18-2017 tuberculin skin test ; purified protein derivative solution, intradermal Aleksandar Jones MD Work Phone: [facility] 08-11-2017 tuberculin skin test ; purified protein derivative solution, intradermal Aleksandar Jones MD Work Phone: [facility] 07-14-2017 Influenza virus vaccine [facility] 07-14-2017 influenza, seasonal, injectable, preservative free Adriano Pendlebury [employer].TANNING SALON ATTENDANT Work Phone: [facility] 06-23-2017 influenza, injectabl e, quadrivalent, preservative free Adriano Pendlebury [employer].TANNING SALON ATTENDANT Work Phone: [facility] 07-04-2016 influenza, injectabl e, quadrivalent, contains preservative Aleksandar Jones MD Work Phone: [facility] 07-14-2015 influenza, injectabl e, quadrivalent, preservative free Adriano Pendlebury [employer].TANNING SAL[employer] ATTENDANT Work Phone: [facility] 07-11-2015 influenza, injectabl e, quadrivalent, preservative free [facility] 07-11-2015 influenza, seasonal, injectable [facility] 07-11-2015 influenza, seasonal, injectable, preservative free Adriano Pendlebury [employer].TANNING SALON ATTENDANT Work Phone: [facility] 08-15-2014 Influenza virus vaccine [facility] 08-15-2014 influenza, seasonal, injectable, preservative free Adriano Pendlebury [employer].TANNING SALON ATTENDANT Work Phone: [facility] 08-15-2014 Pneumococcal Vaccine [facility] Work Phone: 08-15-2014 pneumococcal vaccine , unspecified formulation [facility] 08-08-2014 pneumococcal polysaccharide vaccine, 23 valent Aleksandar Jones MD Work Phone: [facility] 07-27-2014 influenza, seasonal, injectable Aleksandar Jones MD Work Phone: [facility] Work Phone: 01-13-2013 tetanus toxoid, redu regino diphtheria toxoid, and acellular pertussis vaccine, adsorbed Aleksandar Jones MD Work Phone: [facility] Work Phone: 08-05-2011 influenza virus vaccine, unspecified formulation Aleksandar Jones MD Work Phone: [facility] Work Phone: 08-22-2010 influenza virus vaccine, unspecified formulation Aleksandar Jones MD Work Phone: [facility] Work Phone: 1965 influenza, seasonal, injectable Aleksandar Jones MD Work Phone: [facility] Payers Date Payer Category Payer Unknown [id number] 2024 Medicare (Managed Care) [employer] [id number] 2024 Unknown [id number] 2024 Self-pay [id number] 2020 Medicaid [id number] 2020 Medicare [id number] 2017 Medicaid [id number] 2016 Medicare [id number] 1990 Medicare [id number] 1989 Medicare [id number] Unknown [id number] Unknown [id number]. 462 Unknown [id number] 2.840.1.572357.3.579.2. 462 Unknown [id number] 2.840.1.405659.3.579.2. 462 Unknown [id number] 2.840.1.885655.3.579.2. 462 Unknown [id number] 2.16.840.1.326919.3.579.2. 462 Unknown [id number] 2.16.840.1.971317.3.579.2. 462 Unknown [id number] 2.16.840.1.271552.3.579.2. 462 Unknown [id number] 2.16.840.1.534150.3.579.2. 462 Unknown [id number] 2.16.840.1.816974.3.579.2. 462 Unknown [id number] 2.16.840.1.589565.3.579.2. 462 Unknown [id number] 2.16.840.1.717446.3.579.2. 462 Unknown [id number] 2.16.840.1.041415.3.579.2. 462 Unknown [id number] 2.840.1.890531.3.579.2. 462 Unknown [id number] 2.840.1.661159.3.579.2. 462 Unknown [id number] 2.16.840.1.970500.3.579.2. 462 Unknown [id number] 2.16.840.1.229535.3.579.2. 462 Unknown [id number] 2.16.840.1.299094.3.579.2. 462 Unknown [id number] 2.16.840.1.532322.3.579.2. 462 Unknown [id number] 2.16840.1.007255.3.579.2. 462 Unknown [id number] 2.16.840.1.732533.3.579.2. 462 Unknown [id number] 2.16840.1.219655.3.579.2. 462 Unknown [id number] 2.16840.1.537829.3.579.2. 462 Social History Date Type Detail Facility Start: 07-30-2021 End: 12-13-2023 Tobacco smoking status SCIS Unknown if ever smoked [facility] Start: 11-16-2019 None [facility] Start: 11-16-2019 Roommate [facility] Start: 09-10-2020 Non-smoker [facility] Start: 1965 Sex Assigned At Female W [facility] Start: 01-25-2014 End: 07-06-2024 Tobacco smoking status NHIS Ex-smoker [facility] Start: 01-11-1994 End: 01-11-2014 History of tobacco use Current smoker [facility] Start: 01-11-1994 End: 01-11-2014 History of tobacco use Cigarette Smoker [facility] Start: 01-25-2014 End: 03-12-2023 Cigarettes smoked current (pack per day) - Reported 2 [facility] Start: 01-25-2014 End: 07-06-2024 Tobacco use and exposure Smokeless tobacco non-user [facility] Start: 09-26-2021 End: 12-28-2024 Alcohol intake Current non-drinker of alcohol (finding) [facility] Start: 06-19-2018 History SDOH Alcohol Frequency 1 [facility] Start: 06-26-2018 History SDOH Social Connections Phone 5 [facility] Start: 06-26-2018 History SDOH Social Connections Get Together 3 [facility] Start: 06-26-2018 History SDOH Social Connections Living 7 [facility] Start: 06-26-2018 History SDOH Physica l Activity DPW 4 [facility] Start: 06-19-2018 End: 06-26-2018 History SDOH Physical Activity MPS 2 [facility] Start: 06-26-2018 Education 13 [facility] Start: 1965 Sex Assigned At Not on file [facility] Start: 09-18-2020 End: 08-08-2022 Exposure to SARS-CoV-2 (event) Not sure [facility] Start: 06-26-2018 End: 03-12-2023 Social connection and isolation panel [facility] Attends [employer] Not on file [facility] Are you now , , , , never or living with a partner? Never [facility] How often to you hav e a drink containing alcohol? Never [facility] Do you feel stress - tense, restless, nervous, or anxious, or unable to sleep at night because your mind is troubled all the time - these days [OSQ] Only a little [facility] (I/We) worried lawanda er (my/our) food would run out before (I/we) got money to buy more. Never true [facility] Start: 12-21-2024 End: 01-10-2025 Sex Female (finding) [facility] Medical Equipment Procedure Code Equipment Code Equipment Original Text Equipment Identifier Dates [id number], [id number], [id number], [id number], [id number], [id number], [id number], [id number], [id number], [id number], [id number], [id number], [id number], [id number], [id number], [id number] Start: 01-23-2015 End: 06-09-2024 Comment on above: testing twice daily Insulin yes Use as instructed DXE11.21 test BS twice daily - dx - 250.00 -insulin Yes Use one needle per d ose. Once per day. Use as directed ziggy y test BS twice daily 2 days a week- dx 250.00 - non-insulin Test blood sugar(s) 2 times daily. Dx: Other DM Code E11.21 Insulin: Yes Check blood sugars t wice a day. Dx: E11.21 Goals Date Patient Goal Desired Activity /State Personal health goal Personal health goal Comment on above: Formatting of this n ote might be different from the original. 04/27/18 A1C 7.5 at [facility] Personal health goal Comment on above: Formatting of this n ote might be different from the original. 04/27/18 A1C 7.5 at [facility] Functional Status Date Assessment Result Facility 11-12-2024 Functional status Bedrest [facility] Work Phone: 08-16-2023 Functional status Activity Abili ty Independent [facility] Work Phone: 08-15-2023 Functional status Ambulates [facility] Work Phone: 05-12-2015 Are you deaf, or do you have serious difficulty hearing No 05/12/2015 1:40 PM EDT Marcial OrtegaNelly No [facility] 05-12-2015 Are you blind, or do you have serious difficulty seeing, even when wearing glasses No 05/12/2015 1:40 PM EDT Marcial Ortega Nelly No [facility] 05-12-2015 Do you have serious difficulty walking or climbing stairs No 05/12/2015 1:40 PM EDT Marcial Ortega Nelly No [facility] 05-12-2015 Do you have difficul ty dressing or bathing No 05/12/2015 1:40 PM EDT Marcial OrtegaNelly No [facility] 05-12-2015 Because of a physica l, mental, or emotional condition, do you have difficulty doing errands alone such as visiting a physician's office or shopping No 05/12/2015 1:40 PM EDT Nelly Ceja Cma No [facility] Mental Status Date Assessment Result Facility 11-12-2024 Cognitive function Voice/Name [facility] Work Phone: 08-16-2023 Cognitive function Voice/Name [facility] Work Phone: 05-12-2015 Because of a physica l, mental, or emotional condition, do you have serious difficulty concentrating, remembering, or making decisions No 05/12/2015 1:40 PM EDT Nelly Ceja Cma No [facility] Clinical Notes 08-06-2018 to 03-14-2025 Telephone Encounter - Adrianne Saldivar LPN - 03/14/2025 4:44 PM EDTTelephone Encounter - Adrianne Saldivar LPN - 03/14/2025 4:44 PM EDTTelephone Encounter - Maye Ferrer LPN - 02/25/2025 9:24 AM EDT Note Date & Type Note Facility 03-14-2025 Telephone encounter Note No show letter #1 [facility] 03-14-2025 Miscellaneous Notes No show letter #1 documented in this encounter [facility] 02-25-2025 Telephone encounter Note Brenda from [facility] calling to notify PCP that patient has moved to assisted living at [facility] on 02/22/2025. [facility] 02-25-2025 Miscellaneous Notes Brenda from [facility] calling to notify PCP that patient has moved to assisted living at [facility] on 02/22/2025. documented in this encounter [facility] 02-18-2025 Telephone encounter Note The patient has been identified by name and date of : Yes Caregiver verified no other encounters exist for this prescription request: Yes Caregiver confirmed with patient/requestor that no other refills are due, in the near future, with this provider at this time: Yes The last office visit in the department: 01/12/2025 Does the patient have a future office visit with this provider/department: Yes 03/14/2025 Requested Prescriptions Pending Prescriptions Disp Refills gabapentin (NEURONTIN) 100 mg capsule 180 capsule 1 Sig: Take two capsules three times daily. Shirley Romero RN [facility] 02-18-2025 Miscellaneous Notes The patient has been identified by name and date of : Yes Caregiver verified no other encounters exist for this prescription request: Yes Caregiver confirmed with patient/requestor that no other refills are due, in the near future, with this provider at this time: Yes The last office visit in the department: 01/12/2025 Does the patient have a future office visit with this provider/department: Yes 03/14/2025 Requested Prescriptions Pending Prescriptions Disp Refills gabapentin (NEURONTIN) 100 mg capsule 180 capsule 1 Sig: Take two capsules three times daily. Shirley Romero, RN documented in this encounter [facility] 02-11-2025 Telephone encounter Note Kaya informed form ready. Taken to medical records. Joselyn Hendricks MA [facility] 02-11-2025 Miscellaneous Notes Kaya informed form ready. Taken to medical records. Joselyn Hendricks MA Guardian brought paperwork back as it still looks incomplete (possibly missing an office note?). Please review and advise. Forms have been placed on nurse's desk. Eunice Lam documented in this encounter [facility] 02-10-2025 Telephone encounter Note Guardian brought paperwork back as it still looks incomplete (possibly missing an office note?). Please review and advise. Forms have been placed on nurse's desk. Eunice Lam [facility] 02-08-2025 Telephone encounter Note Form completed and noted per request of Kaya. Placed call to Kaya, cassidy merino at [facility] with no answer. Left message for return call and informing her form is completed. No fax number on form. Joselyn Hendricks MA [facility] 02-08-2025 Miscellaneous Notes Form completed and noted per request of Kaya. Placed call to Kaya, patients guardian at [facility] with no answer. Left message for return call and informing her form is completed. No fax number on form. Joselyn Hendricks MA She needs the fluid restriction. Carb counting is ok. Kaya calls back to check on status of updated forms. Notified pending provider review. Kaya reports that provider could add a note that healthy food choices will be encouraged and Kaya to provide a visual reminder to patient of what healthy food choices are. Kaya also wanted to let provider know that currently in the long term patient is not adhering to the 1500 cc fluid restriction. Kaya asking if provider could add to the forms that Patient is aware of 1500 mL fluid restriction to address the issues but stay within what the [place] is allowed to do. Anusha Hansen, RN Copy of form placed on provider's desk. If possible, will give to CREDIT CHARGE AUTHORIZER's to update if agreeable. Nisha Oneill MA January 31, 2025 3:06 PM Pt's guardian, Kaya, calls to report the Assisted Living Facility she is trying to get pt in advised that they received forms from the 's office. Kaya was informed that on the forms there was a handwritten part that said pt needs fluid restriction and carb counting. Kaya reports ideally that would be great but at the long term pt is in now they do not do that. Kaya reports the Assisted Living Facility reports they do not do that. Kaya is asking if this is important enough that she needs to find a NH type of facility to put pt in so those two things can be monitored. If not those two things need to be taken off the form. Kaya reports there is a time crunch for the Waiver that pt has to get into Assisted Living. Nel Villafana LPN documented in this encounter [facility] 02-07-2025 Telephone encounter Note She needs the fluid restriction. Carb counting is ok. [facility] 02-03-2025 Telephone encounter Note Kaya calls back to check on status of updated forms. Notified pending provider review. Kaya reports that provider could add a note that healthy food choices will be encouraged and Kaya to provide a visual reminder to patient of what healthy food choices are. Kaya also wanted to let provider know that currently in the long term patient is not adhering to the 1500 cc fluid restriction. Kaya asking if provider could add to the forms that Patient is aware of 1500 mL fluid restriction to address the issues but stay within what the [place] is allowed to do. Anusha Hansen, RN [facility] 01-31-2025 Telephone encounter Note Copy of form placed on provider's desk. If possible, will give to CREDIT CHARGE AUTHORIZER's to update if agreeable. Nisha Oneill MA January 31, 2025 3:06 PM [facility] 01-31-2025 Telephone encounter Note Pt's guardian, Kaya, calls to report the Assisted Living Facility she is trying to get pt in advised that they received forms from the dr's office. Kaya was informed that on the forms there was a handwritten part that said pt needs fluid restriction and carb counting. Kaya reports ideally that would be great but at the long term pt is in now they do not do that. Kaya reports the Assisted Living Facility reports they do not do that. Kaya is asking if this is important enough that she needs to find a NH type of facility to put pt in so those two things can be monitored. If not those two things need to be taken off the form. Kaya reports there is a time crunch for the Waiver that pt has to get into Assisted Living. Nel Villafana LPN [facility] 01-28-2025 Telephone encounter Note Notified Kaya that will be in medical records for picker tender helper. [facility] 01-28-2025 Miscellaneous Notes Notified Kaya that will be in medical records for picker tender helper. Kaya calls and states that she did not receive forms that were faxed. Kaya asking if she can come into office and picker tender helper a copy of forms? Please review and advise, Eunice Spivey RN documented in this encounter [facility] 01-27-2025 Telephone encounter Note Kaya calls and states that she did not receive forms that were faxed. Kaya asking if she can come into office and picker tender helper a copy of forms? Please review and advise, Eunice Spivey RN [facility] 01-25-2025 Telephone encounter Note The patient has been identified by name and date of : Yes Caregiver verified no other encounters exist for this prescription request: Yes Caregiver confirmed with patient/requestor that no other refills are due, in the near future, with this provider at this time: Yes The last office visit in the department: 01/12/2025 Does the patient have a future office visit with this provider/department: Yes 03/14/2025 Requested Prescriptions Pending Prescriptions Disp Refills acetaminophen (TYLENOL) 325 mg tablet 120 tablet 0 Sig: Take 2 tablets by mouth two times a day. ferrous sulfate 325 mg (65 mg iron) tablet 120 tablet 5 Sig: Take 1 tablet by mouth two times a day with meals. metFORMIN ER (GLUCOPHAGE XR) 500 mg 24 hr tablet 360 tablet 3 Sig: Take 2 tablets by mouth two times a day before meals. Eunice Spivey RN January 25, 2025 3:23 PM [facility] 01-25-2025 Miscellaneous Notes The patient has been identified by name and date of : Yes Caregiver verified no other encounters exist for this prescription request: Yes Caregiver confirmed with patient/requestor that no other refills are due, in the near future, with this provider at this time: Yes The last office visit in the department: 01/12/2025 Does the patient have a future office visit with this provider/department: Yes 03/14/2025 Requested Prescriptions Pending Prescriptions Disp Refills acetaminophen (TYLENOL) 325 mg tablet 120 tablet 0 Sig: Take 2 tablets by mouth two times a day. ferrous sulfate 325 mg (65 mg iron) tablet 120 tablet 5 Sig: Take 1 tablet by mouth two times a day with meals. metFORMIN ER (GLUCOPHAGE XR) 500 mg 24 hr tablet 360 tablet 3 Sig: Take 2 tablets by mouth two times a day before meals. Eunice Spivey RN January 25, 2025 3:23 PM documented in this encounter [facility] 01-24-2025 Telephone encounter Note Forms completed and faxed as requested. [facility] 01-24-2025 Miscellaneous Notes Forms completed and faxed as requested. Patient's Guardian, Kayadon ChowdaryAlina, dropped off forms for patient's assisted living facility. Please fax completed forms to Kaya at [phone]. Form placed on nurse's desk. Eunice Lam documented in this encounter [facility] 01-21-2025 Telephone encounter Note Patient's Guardian, Kaya Fuller, dropped off forms for patient's assisted living facility. Please fax completed forms to Kaya at [phone]. Form placed on nurse's desk. Eunice Lam [facility] 01-19-2025 History of Present illness Narrative Radiology Service Progress Note PATIENT NAME: Brenda Le DATE OF SERVICE: January 19, 2025 TIME: 2:55 PM PATIENT IDENTITY VERIFICATION COMPLETED USING TWO (2) IDENTIFIERS: Name and Date of confirmed by patient verbally. FALL SCREENING: Has the patient had 2 falls in the last year or 1 fall with injury or currently using an Ambulatory Assistive Device (Walker, Cane, Wheelchair, Crutches, etc.)? No PATIENT GENDER DATA: Assigned female at . status: : No status: NO. PATIENT RELEVANT IMPLANT DATA REVIEWED: Not Applicable PATIENT PRESENTS WITH AN IMPLANTABLE OR ATTACHED PLANT GUARD: No RADIOLOGY DEPARTMENT: Mammography PERIPHERAL IV DATA: Not applicable SIGNED BY: Dwight Cheema January 19, 2025 2:55 PM documented in this encounter [facility] 01-19-2025 Note [facility] 01-18-2025 History of Present illness Narrative Radiology Service Progress Note PATIENT NAME: Brenda Le DATE OF SERVICE: January 18, 2025 TIME: 2:34 PM PATIENT IDENTITY VERIFICATION COMPLETED USING TWO (2) IDENTIFIERS: Name and Date of confirmed by patient verbally. FALL SCREENING: Has the patient had 2 falls in the last year or 1 fall with injury or currently using an Ambulatory Assistive Device (Walker, Cane, Wheelchair, Crutches, etc.)? No PATIENT GENDER DATA: Assigned female at . status: : No status: NO. PATIENT RELEVANT IMPLANT DATA REVIEWED: Not Applicable PATIENT PRESENTS WITH AN IMPLANTABLE OR ATTACHED PLANT GUARD: No RADIOLOGY DEPARTMENT: Ultrasound PERIPHERAL IV DATA: Not applicable SIGNED BY: Ivett Blackburn RDMS January 18, 2025 2:34 PM documented in this encounter [facility] 01-18-2025 Note [facility] 01-14-2025 Telephone encounter Note Mail Messenger Contractor[employer]aira, notified of results/provider instructions. She verbalized understanding. Frank Joya LPN [facility] 01-14-2025 Miscellaneous Notes [employer], notified of results/provider instructions. She verbalized understanding. Frank Joya LPN Images from the original note were not included. It looks like this was ran on 01/11. Sodium is still low, but there was some improvement. Please do not restrict sodium in diet and continue to not over-drink. Recheck sodium in 2 weeks -- order is in. documented in this encounter [facility] 01-14-2025 Telephone encounter Note Images from the original note were not included. It looks like this was ran on 01/11. Sodium is still low, but there was some improvement. Please do not restrict sodium in diet and continue to not over-drink. Recheck sodium in 2 weeks -- order is in. [facility] 01-12-2025 Telephone encounter Note Lab orders are being corrected. Just need to reorder BMP and hepatic or can be CMP. Notify this nurse when ordered please. [facility] 01-12-2025 Miscellaneous Notes Lab orders are being corrected. Just need to reorder BMP and hepatic or can be CMP. Notify this nurse when ordered please. documented in this encounter [facility] 01-12-2025 Instructions Aleksandar Jones MD - 01/12/2025 10:49 AM EDT Brenda should be on a liter and half of fluid in 24 hours. No more. Get labs today and then again in one month documented in this encounter [facility] 01-12-2025 Telephone encounter Note Patient in office today to discuss. [facility] 01-12-2025 Miscellaneous Notes Patient in office today to discuss. Left message for patient to call office back Tonie Escobar MA Let them know ID felt the labs were likely a false positive. They recommended that we repeat some labs again in four to six weeks and if need be they will see her. documented in this encounter [facility] 01-12-2025 Note [facility] 01-12-2025 History of Present illness Narrative Patient presents with: Follow Up HPI: Patient presents today for office visit for follow up Here with her guardian Breanna today. States diarrhea for a couple of days. No other gi symptoms. No abd pain etc. Headache on left side of head today. Reports also negative thoughts. She is wondering if her leg issues are RLS? Was given gabapentin for this. Breanna believes that new compression stockings were ordered. Patient reports that she does not restrict fluid. 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 Reviewed recent labs. Her hep b is likely a false positive. Was discussed with ID. She needs repeat labs in one month. She needs labs redone that look at her sodium. We discussed reinstating a fluid restriction. If that does not work, we may have to hold lasix as well. No chest pain or edema or shortness of breath. Note was copied and pasted, without alteration from previous: She last saw me in 2021. Recently saw Radha Batista for leg pain. Had lumbar xray that showed deg changes. Had done therapy and had an arline. Placed on gabapentin. She had wondered it if was related to her psych meds. Chest xray was normal. They had held her statin for a while as well. Has repeat cbc and bmp to be drawn per Radha. She describes pain down her legs when walking. Goes down her legs when she walks. They feel numb. Recently had covid. Still some cough. No fever or chils. Sugars have been stable. Patient states she doesn't feel good. Legs are "bothering" her. Can hardly walk. No swelling. They ache. She states the tylenol is causing "some paranoia." Discussed that tylenol should not do that. She should discuss that with her psychiatrist. Sees Dr Ramirez and Dr Renee Is on bipap. Benefiting from its use. Follows with psych. Note was copied and pasted, without alteration from previous ov: She last saw me in 2021. Recently saw Radha Batista for leg pain. Had lumbar xray that showed deg changes. Had done therapy and had an arline. Placed on gabapentin. She had wondered it if was related to her psych meds. Chest xray was normal. They had held her statin for a while as well. Has repeat cbc and bmp to be drawn per Radha. She describes pain down her legs when walking. Goes down her legs when she walks. They feel numb. Recently had covid. Still some cough. No fever or chils. Sugars have been stable. Patient states she doesn't feel good. Legs are "bothering" her. Can hardly walk. No swelling. They ache. She states the tylenol is causing "some paranoia." Discussed that tylenol should not do that. She should discuss that with her psychiatrist. Sees Dr Ramirez and Dr Renee Is on bipap. Benefiting from its use. Follows with psych. Latest Ref Rng 12/28/2024 01/03/2025 WBC 3.70 - 11.00 k/uL 11.70 (H) 10.58 RBC 3.90 - 5.20 m/uL 4.81 4.66 Hemoglobin 11.5 - 15.5 g/dL 14.1 13.5 Hematocrit 36.0 - 46.0 % 42.9 42.2 MCV 80.0 - 100.0 fL 89.2 90.6 MCH 26.0 - 34.0 pg 29.3 29.0 MCHC 30.5 - 36.0 g/dL 32.9 32.0 RDW-CV 11.5 - 15.0 % 14.1 14.2 Platelet Count 150 - 400 k/uL 144 (L) 177 MPV 9.0 - 12.7 fL 11.9 11.0 Neut% % 70.2 69.2 Abs Neut (ANC) 1.45 - 7.50 k/uL 8.22 (H) 7.33 Lymph% % 23.1 21.2 Abs Lymph 1.00 - 4.00 k/uL 2.70 2.24 [place]% % 4.8 7.9 Abs [place] <0.87 k/uL 0.56 0.84 Eosin% % 0.3 0.3 Abs Eosin <0.46 k/uL 0.03 0.03 Baso% % 0.6 0.6 Abs Baso <0.11 k/uL 0.07 0.06 Immature Gran % % 1.0 0.8 IMMATURE GRANS (ABS) <0.10 k/uL 0.12 (H) 0.08 NRBC /100 WBC 0.0 0.0 Absolute nRBC <0.01 k/uL <0.01 <0.01 DTYPE Auto Auto Glucose 74 - 99 mg/dL 196 (H) 142 (H) BUN 7 - 21 mg/dL 13 12 Creatinine 0.58 - 0.96 mg/dL 0.52 (L) 0.46 (L) Sodium 136 - 144 mmol/L 129 (L) 126 (L) Potassium 3.7 - 5.1 mmol/L 4.4 4.6 Chloride 98 - 107 mmol/L 94 (L) 93 (L) CO2 22 - 30 mmol/L 20 (L) 21 (L) Anion Gap 8 - 15 mmol/L 15 12 Calcium 8.5 - 10.2 mg/dL 9.3 9.4 eGFR >=60 mL/min/1.73m 106 109 Albumin 3.9 - 4.9 g/dL 4.3 Bilirubin, Total 0.2 - 1.3 mg/dL 0.2 Bilirubin, Direct <0.3 mg/dL <0.3 Alkaline Phosphatase 34 - 123 U/L 123 AST 13 - 35 U/L 17 ALT 7 - 38 U/L 32 Protein, Total 6.3 - 8.0 g/dL 7.5 Hep B Surface Ab, Qual Negative Hep B Surf Ab Quant mIU/mL <8.00 HCV RNA Not detected Not detected Hep B Surface Ag Negative Negative Negative Hep A Ab, IgM Negative Negative Hep B Core Ab, IgM Negative Positive ! Positive ! HBV DNA Not detected Not detected Hep Be Ab Negative Negative Hep Be Ag Negative Negative Hep B Core Ab, Total Negative Negative Legend: (H) High (L) Low ! Abnormal MEDICATIONS: Current Outpatient Medications Medication Sig metroNIDAZOLE (METROGEL) 0.75 % Topical Gel Apply to affected area two times a day. acetaminophen (TYLENOL) 325 mg tablet Take 2 tablets by mouth two times a day. gabapentin (NEURONTIN) 100 mg capsule Take two capsules three times daily. potassium chloride ER (KLOR-CON) 20 mEq tablet Take 1 tablet by mouth once daily. docusate sodium (COLACE) 100 mg capsule Take 1 capsule by mouth two times a day. albuterol HFA (VENTOLIN HFA) 90 mcg/actuation inhaler Inhale 2 Puffs as instructed every 4 hours as needed for wheezing/shortness of breath. guaiFENesin (MUCINEX) 600 mg 12 hr tablet Take 2 tablets by mouth once daily. Per Dr. Ramirez (Patient not taking: Reported on 12/28/2024) nabumetone (RELAFEN) 500 mg tablet Take 1 tablet by mouth two times a day. TAKE WITH FOOD guaiFENesin (MUCINEX) 600 mg 12 hr tablet Take 2 tablets by mouth two times a day. omeprazole (PRILOSEC) 20 mg capsule Take 1 capsule by mouth daily before breakfast. 1/2 hr before meal. empagliflozin (JARDIANCE) 10 mg tablet Take 1 tablet by mouth daily with breakfast. sodium chloride-aloe vera (AYR SALINE GEL) nasal spray Use 1 mL in the nose two times a day. insulin glargine (LANTUS SOLOSTAR U-100 INSULIN) 100 unit/mL (3 mL) Inject 60 Units subcutaneously daily at bedtime. benztropine (COGENTIN) 0.5 mg tablet Take 0.5 mg by mouth two times a day. albuterol (PROVENTIL) 2.5 mg /3 mL (0.083 %) nebulizer solution Use 2.5 mg via nebulizer every 4 hours as needed. Every morning Menthol (COUGH DROPS) 5.8 mg Use 1 Lozenge as instructed every 2 hours as needed. Sugar-Free furosemide (LASIX) 20 mg tablet Take 1 tablet by mouth once daily. Comp Stocking,Knee,Regular,Med misc Patient to be measured for correct size. 20-30 mmHg Dx: I50.31 omega-3 fatty acids (FISH OIL CONCENTRATE) 1,000 mg cap Take 1 capsule by mouth once daily. Cholecalciferol, Vitamin D3, 25 mcg (1,000 unit) cap Take 1 capsule by mouth once daily. aspirin, enteric coated (ASPIRIN, ENTERIC COATED) 325 mg EC tablet Take 1 tablet by mouth once daily. Take with food. metoprolol succinate ER (TOPROL XL) 25 mg 24 hr tablet take 1 tablet by mouth every evening Lancets Test blood sugar(s) 4 times daily with sliding scale coverage. Dx: Other DM Code E11.21 Insulin: Yes blood sugar diagnostic (BLOOD GLUCOSE TEST) test strip testing QIDtimes daily and sliding scale coverage. Insulin yes Use as instructed DXE11.21 metroNIDAZOLE (METROGEL) 1 % Topical Gel Apply 1 application to affected area once daily. Location: face polyethylene glycol 3350 (MIRALAX) 17 gram packet Take 1 Packet by mouth once daily. Dissolve dose in 4 - 8 ounces of liquid and take as directed. pramipexole (MIRAPEX) 0.5 mg tablet Take 0.5 tablets by mouth daily at bedtime. insulin needles, DISPOSABLE, (PEN NEEDLE) 31 gauge x 5/16" Use one needle per dose. 4 times daily (basaglar and humalog). Blood-Glucose Meter (FREESTYLE LITE METER) monitoring kit Used three times daily to check blood sugar. 250.00 insulin lispro (HUMALOG KWIKPEN) 100 unit/mL Sig: Administer Lispro insulin per scale AC breakfast morning, AC lunch, AC dinner as follows with glucose 150-199 2u, 200-249 3u, 250-299 5u, 300-350 8u, 350-399 11u, 400- 449 14u, 450 and above go to ER. haloperidol (HALDOL) 2 mg tablet Take by mouth. ferrous sulfate 325 mg (65 mg iron) tablet Take 1 tablet by mouth two times a day with meals. metFORMIN ER (GLUCOPHAGE XR) 500 mg 24 hr tablet Take 2 tablets by mouth two times a day before meals. Artificial Tear, Hypromellose, (SYSTANE GEL) 0.3 % gel Use 1 Drop in both eyes daily at bedtime. INVEGA SUSTENNA 156 mg/mL syrg injection clonazePAM (KLONOPIN) 0.5 mg tablet Take 0.5 mg by mouth three times daily as needed. Blood Pressure Monitor 1 Each twice daily. [...] as instructed once daily. Per Dr. Ramirez No current facility-administered medications for this visit. ALLERGIES: ALLERGIES No Known Allergies PAST MEDICAL HISTORY Diagnosis Date Bilateral pneumonia 07/23/2018 Admit [facility]: pneumococcal suspected, neg culture. 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 [facility], pt was on metformin for a [...] Social History Tobacco Use Smoking status: Former Current packs/day: 0.00 Average packs/day: 2.0 packs/day for 20.0 years (40.0 ttl pk-yrs) Types: Cigarettes Start date: 01/11/1994 Quit date: 01/11/2014 Years since quittin.0 Smokeless tobacco: Never Vaping Use Vaping status: Never Used Substance Use Topics Alcohol use: No Drug use: No Comment: marijunan- Teen yrs, but not now Reviewed current medications, allergies, past medical history, surgical history, family history and social history today. REVIEW OF SYSTEMS All other reviewed and negative other than HPI. VITALS: BP 122/72 Pulse 92 Wt 85.3 kg (188 lb) LMP 09/12/2017 SpO2 94% BMI 35.52 kg/m Last 4 Encounter Wt Readings: Date: Wt: 12/28/2024 84.4 kg (186 lb) 11/09/2024 84.3 kg (185 lb 13.6 oz) 09/28/2024 84.8 kg (187 lb) 09/20/2024 84.6 kg (186 lb 6.4 oz) PHYSICAL EXAMINATION: General appearance: Well appearing, alert, in no acute distress, well-hydrated, well nourished. Skin: Skin color, texture, turgor normal, no suspicious rashes or lesions Lungs: Lungs clear to auscultation. No wheezing, rhonchi, rales Heart: RRR without murmur, gallop, or rubs. No ectopy Abdomen: Normal abdominal exam, Abdomen soft, non-tender. Bowel sounds normal. No masses, organomegaly ASSESSMENT/PLAN: 1. Water intoxication - ICD9: 276.69, ICD10: E87.79 (primary diagnosis) - recheck labs. 1500 cc restriction. May need to hold lasix. Recheck labs. Follow in eight weeks 2. Vitamin D deficiency - ICD9: 268.9, ICD10: E55.9 - stable. 3. Hepatitis B core antibody positive - ICD9: 795.79, ICD10: R76.8 - likely lab error. Was supposed to have been drawn in one month - HEPATITIS B VIRUS (HBV) DNA, QUANTITATIVE PCR, PLASMA/SERUM - HEPATITIS B CORE ANTIBODY IGM - HEPATITIS B CORE ANTIBODY TOTAL - HEPATITIS B SURFACE ANTIBODY - HEPATITIS B SURFACE ANTIGEN 4. Hyponatremia - ICD9: 276.1, ICD10: E87.1 -as above. 5. Acute diastolic CHF (congestive heart failure) (HCC) - ICD9: 428.31, 428.0, ICD10: I50.31 - no clinic signs of overload. Red flags for re-assessment reviewed with patient in detail. 6. Liver function test abnormality - ICD9: 790.6, ICD10: R79.89 - recheck. 7. Type 2 diabetes mellitus with diabetic nephropathy, with long-term current use of insulin (HCC) - ICD9: 250.40, 583.81, V58.67, ICD10: E11.21, Z79.4 - stable. Aleksandar Jones MD documented in this encounter [facility] 01-07-2025 Telephone encounter Note Left message for patient to call office back Tonie Escobar MA [facility] 01-05-2025 Telephone encounter Note Noted. Radha Batista APRN.CNP [facility] 01-05-2025 Miscellaneous Notes Noted. Radha Batista APRN.CNP Steph Recio calling from [facility] and asking this office to notify [facility] that pt's Jardiance is being held (per previous note below) until lab recheck next week, in regard to pt's pill-packaging service there. This nurse updated [facility] as requested. Steph also requesting pt's last OV note to be faxed to [facility] along with documentation of order for pt to hold Jardiance, in regard to pt's Long-Term requirements. Information faxed as requested to FAX #: [phone]. Shirley Romero, JAH Spoke /c caregiver, Fransisca, notified of results/provider instructions. Fransisca states they do try to watch her water intake. Fransisca is asking for a new order for compression stockings to be sent to [facility] d/t pt threw the last pr away. Frank Joya LPN Can please let patient/caregiver know that I received her labs. Her sodium is too low. This could be causing some of her leg symptoms. Lets have her hold the jardiance for now. She needs to restrict fluids to 800cc-1000cc per day. Repeat labs and urine next week. The order is in. Radha Batista APRN.CNP documented in this encounter [facility] 01-05-2025 Telephone encounter Note Let them know ID felt the labs were likely a false positive. They recommended that we repeat some labs again in four to six weeks and if need be they will see her. [facility] 01-05-2025 Telephone encounter Note Steph Recio calling from [facility] and asking this office to notify [facility] that pt's Jardiance is being held (per previous note below) until lab recheck next week, in regard to pt's pill-packaging service there. This nurse updated [facility] as requested. Steph also requesting pt's last OV note to be faxed to [facility] along with documentation of order for pt to hold Jardiance, in regard to pt's Long-Term requirements. Information faxed as requested to FAX #: [phone]. Shirley Romero RN [facility] 01-05-2025 Note [facility] 01-05-2025 History of Present illness Narrative Infectious Disease E-Consult Response In response to your eConsult Infectious Disease request for Brenda Le regarding: hep B IgM core antibody positive. History of present illness provided through requesting provider documentation and current treatment plan was reviewed. 59 year old female has a past medical history of COPD (chronic obstructive pulmonary disease) (HCC), Diabetes 1.5, managed as type 2 (HCC), Major depressive disorder, LIDA (obstructive sleep apnea), Schizophreniform disorder. Noted that recently seen by primary care in follow up. Due to having high LFTs there was a hepatitis panel sent. LFTs had been high on 11/02 with ALT high at 43 and an elevated alk phos of 133, and previous abnormal was 03/02/24 with alk phos 139, AST 38, ALT 52. Hep hepatitis testing came back as follows: Hep B surface antibody negative Hep B surface antigen negative. Hep B core total negative (IgG) Hep B core IgM positive Hep Be antigen negative Hep Be antibody negative HBV DNA Based on the patient history provided, my impression is as follows: I expect the core IgM is likely a false positive. This would normally be a marker for acute infection and in the absence of positive Antigen and DNA acute infection seems unlikely. I would recommend to repeat hep B surface antigen, surface antibody, core antibody total, IgM and DNA in 4-6 weeks. If positive then let me know and I can follow patient going forward. Typically would monitor patient without therapy unless meets certain parameters with DNA level and AST/ALT levels Specialist appointment needs: No appointment necessary Time: 12 minutes Jey Brown III, MD January 05, 2025 documented in this encounter [facility] 01-04-2025 Telephone encounter Note Spoke /c caregiver, Fransisca, notified of results/provider instructions. Fransisca states they do try to watch her water intake. Fransisca is asking for a new order for compression stockings to be sent to [facility] d/t pt threw the last pr away. Frank Joya LPN [facility] 01-04-2025 Telephone encounter Note Patient Guardian Kaya Fuller returned call and went over results, notes from Dr Jones with understanding. Kaya said patient lives in a long term and she is going to have them call and schedule her ultrasound appt, and lab work. [facility] 01-04-2025 Miscellaneous Notes Patient Guardian Kaya Fuller returned call and went over results, notes from Dr Jones with understanding. Kaya said patient lives in a long term and she is going to have them call and schedule her ultrasound appt, and lab work. Message left for guardian Kaya to return call. Joselyn Hendricks MA Her liver tests have come back. The one test is positive. All the other hep b testing is negative. That can sometimes mean she may have been exposed at some point. No signs of definite active infection. Looking over old charts, prior to when I cared for her, she had seen gi who was discussing doing a liver biopsy due to elevated liver enzymes. Check liver us and repeat liver panel in two weeks. I am going to run her by one of the infection doctors to see what they recommend for further follow up and let her know documented in this encounter [facility] 01-04-2025 Telephone encounter Note Message left for wilber Kirkpatrick to return call. Joselyn Hendricks MA [facility] 01-04-2025 Telephone encounter Note Can please let patient/caregiver know that I received her labs. Her sodium is too low. This could be causing some of her leg symptoms. Lets have her hold the jardiance for now. She needs to restrict fluids to 800cc-1000cc per day. Repeat labs and urine next week. The order is in. Radha Batista APRN.PAVITHRA [facility] 01-04-2025 Telephone encounter Note Her liver tests have come back. The one test is positive. All the other hep b testing is negative. That can sometimes mean she may have been exposed at some point. No signs of definite active infection. Looking over old charts, prior to when I cared for her, she had seen gi who was discussing doing a liver biopsy due to elevated liver enzymes. Check liver us and repeat liver panel in two weeks. I am going to run her by one of the infection doctors to see what they recommend for further follow up and let her know [facility] 01-03-2025 Telephone encounter Note The patient has been identified by name and date of : Yes Caregiver verified no other encounters exist for this prescription request: Yes Caregiver confirmed with patient/requestor that no other refills are due, in the near future, with this provider at this time: Yes The last office visit in the department: 12/28/2024 Does the patient have a future office visit with this provider/department: Yes 07/20/2025 Requested Prescriptions Pending Prescriptions Disp Refills metroNIDAZOLE (METROGEL) 0.75 % Topical Gel 45 g 5 Sig: Apply to affected area two times a day. Alma Smart RN January 03, 2025 9:03 AM [facility] 01-03-2025 Miscellaneous Notes The patient has been identified by name and date of : Yes Caregiver verified no other encounters exist for this prescription request: Yes Caregiver confirmed with patient/requestor that no other refills are due, in the near future, with this provider at this time: Yes The last office visit in the department: 12/28/2024 Does the patient have a future office visit with this provider/department: Yes 07/20/2025 Requested Prescriptions Pending Prescriptions Disp Refills metroNIDAZOLE (METROGEL) 0.75 % Topical Gel 45 g 5 Sig: Apply to affected area two times a day. Alma Smart RN January 03, 2025 9:03 AM documented in this encounter [facility] 12-31-2024 Telephone encounter Note Patient notified of results, verbalizes understanding of instructions. Edel Katz LPN [facility] 12-31-2024 Miscellaneous Notes Patient notified of results, verbalizes understanding of instructions. Edel Katz LPN Can please let patient know that I received her lab results. Her sodium is a little low. Please make sure she isn't drinking too much water and follow her restriction. Recheck lab in 1-2 weeks. documented in this encounter [facility] 12-31-2024 Telephone encounter Note Can please let patient know that I received her lab results. Her sodium is a little low. Please make sure she isn't drinking too much water and follow her restriction. Recheck lab in 1-2 weeks. [facility] 12-31-2024 Telephone encounter Note Patient notified of results and provider's instructions. Patient verbalizes understanding. Eunice Spivey RN [facility] 12-31-2024 Miscellaneous Notes Patient notified of results and provider's instructions. Patient verbalizes understanding. Eunice Spivey RN Called and left a message for the Patient to call back and ask for a nurse to receive the providers message. Cristal White RN Her liver is better. Her hep b studies are equivocal. May be in error or could have had hep b in the past. Repeat full hep b panel however to be sure. documented in this encounter [facility] 12-30-2024 Telephone encounter Note Called and left a message for the Patient to call back and ask for a nurse to receive the providers message. Cristal White, RN [facility] [facility] 12-30-2024 History of Present illness Narrative POPULATION HEALTH NAVIGATION OUTREACH Action/[facility] [place] Support: Called pt to schedule an appt in Pain Management. PT was not in. Jerome answered and took down the message for the pt to call [phone]. Stated that the number I called is for a long term. Any agent can assist with scheduling Reason for Outreach Care Gap/HCC or Scheduling Wellness Visits Care Gaps due: N/A Patient Contacted: Unable or unnecessary to reach patient: Left message Navigation Signature: Alexandra Kemp December 30, 2024 4:24 PM documented in this encounter [facility] 12-30-2024 Telephone encounter Note Her liver is better. Her hep b studies are equivocal. May be in error or could have had hep b in the past. Repeat full hep b panel however to be sure. [facility] 12-30-2024 Telephone encounter Note The patient has been identified by name and date of : Yes, pharmacy Caregiver verified no other encounters exist for this prescription request: Yes Caregiver confirmed with patient/requestor that no other refills are due, in the near future, with this provider at this time: Yes The last office visit in the department: 12/28/2024 Does the patient have a future office visit with this provider/department: Yes 07/20/2025 Requested Prescriptions Pending Prescriptions Disp Refills acetaminophen (TYLENOL) 325 mg tablet 120 tablet 0 Sig: Take 2 tablets by mouth two times a day. gabapentin (NEURONTIN) 100 mg capsule 180 capsule 1 Sig: Take two capsules three times daily. potassium chloride ER (KLOR-CON) 20 mEq tablet 30 tablet 5 Sig: Take 1 tablet by mouth once daily. Maye Ferrer LPN December 30, 2024 10:03 AM [facility] 12-30-2024 Miscellaneous Notes The patient has been identified by name and date of : Yes, pharmacy Caregiver verified no other encounters exist for this prescription request: Yes Caregiver confirmed with patient/requestor that no other refills are due, in the near future, with this provider at this time: Yes The last office visit in the department: 12/28/2024 Does the patient have a future office visit with this provider/department: Yes 07/20/2025 Requested Prescriptions Pending Prescriptions Disp Refills acetaminophen (TYLENOL) 325 mg tablet 120 tablet 0 Sig: Take 2 tablets by mouth two times a day. gabapentin (NEURONTIN) 100 mg capsule 180 capsule 1 Sig: Take two capsules three times daily. potassium chloride ER (KLOR-CON) 20 mEq tablet 30 tablet 5 Sig: Take 1 tablet by mouth once daily. Maye Ferrer LPN December 30, 2024 10:03 AM documented in this encounter [facility] 12-28-2024 Note [facility] 12-28-2024 History of Present illness Narrative Patient presents with: Follow Up HPI: Patient presents today for office visit for follow up. She last saw me in 2021. Recently saw Radha Batista for leg pain. Had lumbar xray that showed deg changes. Had done therapy and had an arline. Placed on gabapentin. She had wondered it if was related to her psych meds. Chest xray was normal. They had held her statin for a while as well. Has repeat cbc and bmp to be drawn per Radha. She describes pain down her legs when walking. Goes down her legs when she walks. They feel numb. Recently had covid. Still some cough. No fever or chils. Sugars have been stable. Patient states she doesn't feel good. Legs are "bothering" her. Can hardly walk. No swelling. They ache. She states the tylenol is causing "some paranoia." Discussed that tylenol should not do that. She should discuss that with her psychiatrist. Sees Dr Ramirez and Dr Renee Is on bipap. Benefiting from its use. Follows with psych. Note was copied and pasted, without alteration from Radha's last ov: Refers that he legs are really bothering her. They feel like rubber. They ache. Its hard for me to walk. Refers the pain is there in the morning. Refers it does improved some during the day, but then returns around 5:00 PM. Unable to identify any triggers of symptoms. We had increase the gabapentin to 200 mg twice daily, but uncertain if this is helpful. Wearing compression. ARLINE normal. Fatigued today. She has a new CPAP and she reports that she inadvertently took off last night. She recently was in the hospital with bibasilar pneumonia. Latest Ref Rng 11/02/2024 WBC 3.70 - 11.00 k/uL 11.07 (H) RBC 3.90 - 5.20 m/uL 4.86 Hemoglobin 11.5 - 15.5 g/dL 13.8 Hematocrit 36.0 - 46.0 % 44.1 MCV 80.0 - 100.0 fL 90.7 MCH 26.0 - 34.0 pg 28.4 MCHC 30.5 - 36.0 g/dL 31.3 RDW-CV 11.5 - 15.0 % 14.3 Platelet Count 150 - 400 k/uL 129 (L) MPV 9.0 - 12.7 fL 12.2 Neut% % 71.0 Abs Neut (ANC) 1.45 - 7.50 k/uL 7.86 (H) Lymph% % 21.0 Abs Lymph 1.00 - 4.00 k/uL 2.33 [place]% % 6.9 Abs [place] <0.87 k/uL 0.76 Eosin% % 0.1 Abs Eosin <0.46 k/uL <0.03 Baso% % 0.5 Abs Baso <0.11 k/uL 0.06 Immature Gran % % 0.5 IMMATURE GRANS (ABS) <0.10 k/uL 0.05 NRBC /100 WBC 0.0 Absolute nRBC <0.01 k/uL <0.01 DTYPE Auto Protein, Total 6.3 - 8.0 g/dL 7.4 Albumin 3.9 - 4.9 g/dL 4.4 Calcium 8.5 - 10.2 mg/dL 9.2 Bilirubin, Total 0.2 - 1.3 mg/dL 0.2 Alkaline Phosphatase 34 - 123 U/L 133 (H) AST 13 - 35 U/L 23 ALT 7 - 38 U/L 43 (H) Glucose 74 - 99 mg/dL 138 (H) BUN 7 - 21 mg/dL 11 Creatinine 0.58 - 0.96 mg/dL 0.55 (L) Sodium 136 - 144 mmol/L 131 (L) Potassium 3.7 - 5.1 mmol/L 4.3 Chloride 98 - 107 mmol/L 93 (L) CO2 22 - 30 mmol/L 25 Anion Gap 8 - 15 mmol/L 13 eGFR >=60 mL/min/1.73m 105 Total Cholesterol, Nonfasting <200 mg/dL 204 (H) Triglycerides, Nonfasting <150 mg/dL 344 (H) HDL Cholesterol, Nonfasting >39 mg/dL 39 (L) LDL Cholesterol, Nonfasting <100 mg/dL 96 Non HDL Cholesterol, Nonfasting <130 mg/dL 165 (H) VLDL Cholesterol, Nonfasting <30 mg/dL 69 (H) Total Chol/HDL Ratio, Nonfasting <5.10 mg/dL 5.23 (H) LDL/HDL Ratio, Nonfasting <2.54 mg/dL 2.46 Hemoglobin A1C 4.3 - 5.6 % 6.7 (H) Estimated Average Glucose mg/dL 146 CK 42 - 196 U/L 51 Aldolase 1.5 - 8.1 U/L 5.2 Legend: (H) High (L) Low MEDICATIONS: Current Outpatient Medications Medication Sig acetaminophen (TYLENOL) 325 mg tablet Take 2 tablets by mouth two times a day. docusate sodium (COLACE) 100 mg capsule Take 1 capsule by mouth two times a day. albuterol HFA (VENTOLIN HFA) 90 mcg/actuation inhaler Inhale 2 Puffs as instructed every 4 hours as needed for wheezing/shortness of breath. nabumetone (RELAFEN) 500 mg tablet Take 1 tablet by mouth two times a day. TAKE WITH FOOD guaiFENesin (MUCINEX) 600 mg 12 hr tablet Take 2 tablets by mouth two times a day. gabapentin (NEURONTIN) 100 mg capsule Take two capsules three times daily. omeprazole (PRILOSEC) 20 mg capsule Take 1 capsule by mouth daily before breakfast. 1/2 hr before meal. sodium chloride-aloe vera (AYR SALINE GEL) nasal spray Use 1 mL in the nose two times a day. insulin glargine (LANTUS SOLOSTAR U-100 INSULIN) 100 unit/mL (3 mL) Inject 60 Units subcutaneously daily at bedtime. benztropine (COGENTIN) 0.5 mg tablet Take 0.5 mg by mouth two times a day. albuterol (PROVENTIL) 2.5 mg /3 mL (0.083 %) nebulizer solution Use 2.5 mg via nebulizer every 4 hours as needed. Every morning Menthol (COUGH DROPS) 5.8 mg Use 1 Lozenge as instructed every 2 hours as needed. Sugar-Free furosemide (LASIX) 20 mg tablet Take 1 tablet by mouth once daily. Comp Stocking,Knee,Regular,Med misc Patient to be measured for correct size. 20-30 mmHg Dx: I50.31 potassium chloride ER (KLOR-CON) 20 mEq tablet Take 1 tablet by mouth once daily. omega-3 fatty acids (FISH OIL CONCENTRATE) 1,000 mg cap Take 1 capsule by mouth once daily. Cholecalciferol, Vitamin D3, 25 mcg (1,000 unit) cap Take 1 capsule by mouth once daily. aspirin, enteric coated (ASPIRIN, ENTERIC COATED) 325 mg EC tablet Take 1 tablet by mouth once daily. Take with food. metoprolol succinate ER (TOPROL XL) 25 mg 24 hr tablet take 1 tablet by mouth every evening Lancets Test blood sugar(s) 4 times daily with sliding scale coverage. Dx: Other DM Code E11.21 Insulin: Yes blood sugar diagnostic (BLOOD GLUCOSE TEST) test strip testing QIDtimes daily and sliding scale coverage. Insulin yes Use as instructed DXE11.21 metroNIDAZOLE (METROGEL) 1 % Topical Gel Apply 1 application to affected area once daily. Location: face metroNIDAZOLE (METROGEL) 0.75 % Topical Gel Apply to affected area two times a day. polyethylene glycol 3350 (MIRALAX) 17 gram packet Take 1 Packet by mouth once daily. Dissolve dose in 4 - 8 ounces of liquid and take as directed. pramipexole (MIRAPEX) 0.5 mg tablet Take 0.5 tablets by mouth daily at bedtime. insulin needles, DISPOSABLE, (PEN NEEDLE) 31 gauge x 5/16" Use one needle per dose. 4 times daily (basaglar and humalog). Blood-Glucose Meter (FREESTYLE LITE METER) monitoring kit Used three times daily to check blood sugar. 250.00 insulin lispro (HUMALOG KWIKPEN) 100 unit/mL Sig: Administer Lispro insulin per scale AC breakfast morning, AC lunch, AC dinner as follows with glucose 150-199 2u, 200-249 3u, 250-299 5u, 300-350 8u, 350-399 11u, 400- 449 14u, 450 and above go to ER. haloperidol (HALDOL) 2 mg tablet Take by mouth. ferrous sulfate 325 mg (65 mg iron) tablet Take 1 tablet by mouth two times a day with meals. metFORMIN ER (GLUCOPHAGE XR) 500 mg 24 hr tablet Take 2 tablets by mouth two times a day before meals. Artificial Tear, Hypromellose, (SYSTANE GEL) 0.3 % gel Use 1 Drop in both eyes daily at bedtime. INVEGA SUSTENNA 156 mg/mL syrg injection clonazePAM (KLONOPIN) 0.5 mg tablet Take 0.5 mg by mouth three times daily as needed. Blood Pressure Monitor 1 Each twice daily. [...] as instructed once daily. Per Dr. Ramirez guaiFENesin (MUCINEX) 600 mg 12 hr tablet Take 2 tablets by mouth once daily. Per Dr. Ramirez (Patient not taking: Reported on 12/28/2024) empagliflozin (JARDIANCE) 10 mg tablet Take 1 tablet by mouth daily with breakfast. (Patient not taking: Reported on 12/28/2024) No current facility-administered medications for this visit. ALLERGIES: ALLERGIES No Known Allergies PAST MEDICAL HISTORY Diagnosis Date Bilateral pneumonia 07/23/2018 Admit [facility]: pneumococcal suspected, neg culture. + rhinovirus Constipation [...] Social History Tobacco Use Smoking status: Former Current packs/day: 0.00 Average packs/day: 2.0 packs/day for 20.0 years (40.0 ttl pk-yrs) Types: Cigarettes Start date: 01/11/1994 Quit date: 01/11/2014 Years since quittin.9 Smokeless tobacco: Never Vaping Use Vaping status: Never Used Substance Use Topics Alcohol use: No Drug use: No Comment: leisaan- Teen yrs, but not now Reviewed current medications, allergies, past medical history, surgical history, family history and social history today. REVIEW OF SYSTEMS No gi or gu issues. All other reviewed and negative other than HPI. HEALTH MAINTENANCE: Reviewed health maintenance issues today and recommended the following in detail. Depression Screening Never done Anxiety Screening Never done Mammogram Screening due on 06/27/2022 Dilated Retinal Exam -sees Dr Tony barraza. Shingles-appears to have had one, unsure if got second. They will check. VITALS: BP 126/60 Pulse 113 Ht 154.9 cm (5' 1") Wt 84.4 kg (186 lb) LMP 09/12/2017 SpO2 92% BMI 35.14 kg/m Normally run's 90's- low 100s for pulse. Sees Dr Renee Last 4 Encounter Wt Readings: Date: Wt: 12/28/2024 84.4 kg (186 lb) 11/09/2024 84.3 kg (185 lb 13.6 oz) 09/28/2024 84.8 kg (187 lb) 09/20/2024 84.6 kg (186 lb 6.4 oz) PHYSICAL EXAMINATION: General appearance: Well appearing, [...] Peripheral pulses: Normal Neuro: Negative. ASSESSMENT/PLAN: 1. COVID - ICD9: 079.89, ICD10: U07.1 (primary diagnosis) - appears to be doing better. Red flags for re-assessment reviewed with patient in detail. Call if symptoms worsen at all or if not better in one to two weeks 2. Acute diastolic CHF (congestive heart failure) (HCC) - ICD9: 428.31, 428.0, ICD10: I50.31 - stable. 3. Pure hypercholesterolemia - ICD9: 272.0, ICD10: E78.00 - stable. 4. SVT (supraventricular tachycardia) (HCC) - ICD9: 427.89, ICD10: I47.10 - continue meds. Follow with cardiology. 5. Chronic obstructive pulmonary disease, unspecified COPD type (HCC) - ICD9: 496, ICD10: J44.9 - sees pulmonary. 6. LIDA (obstructive sleep apnea) - ICD9: 327.23, ICD10: G47.33 - continue bipap 7. Gastritis without bleeding, unspecified chronicity, unspecified gastritis type - ICD9: 535.50, ICD10: K29.70 - stable. 8. Water intoxication - ICD9: 276.69, ICD10: E87.79 - sodium is stable. 9. Type 2 diabetes mellitus with diabetic nephropathy, with long-term current use of insulin (HCC) - ICD9: 250.40, 583.81, V58.67, ICD10: E11.21, Z79.4 - sugars are well controlled. 10. Vitamin D deficiency - ICD9: 268.9, ICD10: E55.9 - stable. 11. Obesity, Class II, BMI 35-39.9 - ICD9: 278.00, ICD10: E66.812 - watch diet. 12. Degeneration of intervertebral disc of lumbar region with discogenic back pain and lower extremity pain - ICD9: 722.52, ICD10: M51.362 - continue gabapentin. See pain management. - CONSULT TO PAIN MGT 13. Elevated liver enzymes - ICD9: 790.5, ICD10: R74.8 - recheck labs. - HEPATIC FUNCTION PNL - HEP ACUTE PANEL/RNA 14. Schizophreniform disorder, chronic condition (HCC) - ICD9: 295.42, ICD10: F20.81 - per psych Aleksandar Jones MD documented in this encounter [facility] 12-21-2024 Discharge summary [facility] 12-21-2024 Radiology Diagnostic study note [facility] Imaging Services [address] [place] [address] [id number] Chest PA and Lateral MR#: [id number] Acct: [id number] Name: BRENDA LE Rep #: [id number] : [id number] F 59 From: Naomi Carlos MD PCP: Shelia Salmon, MANAGER MAIL Status: REG ER Study:Chest PA and Lateral Date of Exam: 12/21/24 Exam# [id number] Ordering Dr: Geena Garcia DO EXAM: XR Chest, 2 Views CLINICAL INDICATION: SOB TECHNIQUE: Frontal and lateral views of the chest. COMPARISON: No relevant prior studies available. FINDINGS: LUNGS AND PLEURAL SPACES: Pulmonary venous congestion. No consolidation. No pneumothorax. HEART: Unremarkable. No cardiomegaly. MEDIASTINUM: Unremarkable. Normal mediastinal contour. BONES/JOINTS: Unremarkable. No acute fracture. RAD/Chest PA and Lateral IMPRESSION: Pulmonary venous congestion. Reading Location: RAD-LE-NL CC: ESEQUIEL Shelia Salmon; Dr. Babak Garcia, DO ~ Punchboard Filling Machine Operator: Signed [facility] 12-08-2024 Telephone encounter Note Ivett from [facility] calls and states that she knows medication was recently refilled but they had to use part of the refill in patients pack and needs refill for future fill. The patient has been identified by name and date of : Yes Caregiver verified no other encounters exist for this prescription request: Yes Caregiver confirmed with patient/requestor that no other refills are due, in the near future, with this provider at this time: Yes The last office visit in the department: 12/07/2024 Does the patient have a future office visit with this provider/department: Yes 12/28/2024 Requested Prescriptions Pending Prescriptions Disp Refills acetaminophen (TYLENOL) 325 mg tablet 120 tablet 0 Sig: Take 2 tablets by mouth two times a day. Eunice Spivey RN December 08, 2024 4:21 PM [facility] 12-08-2024 Miscellaneous Notes Ivett from [facility] calls and states that she knows medication was recently refilled but they had to use part of the refill in patients pack and needs refill for future fill. The patient has been identified by name and date of : Yes Caregiver verified no other encounters exist for this prescription request: Yes Caregiver confirmed with patient/requestor that no other refills are due, in the near future, with this provider at this time: Yes The last office visit in the department: 12/07/2024 Does the patient have a future office visit with this provider/department: Yes 12/28/2024 Requested Prescriptions Pending Prescriptions Disp Refills acetaminophen (TYLENOL) 325 mg tablet 120 tablet 0 Sig: Take 2 tablets by mouth two times a day. Eunice Spivey RN December 08, 2024 4:21 PM documented in this encounter [facility] 12-08-2024 Telephone encounter Note TC to pt, spoke with caregiver, Breanna. Notified of results/provider response. Breanna verbalized understanding. Frank Joya LPN [facility] 12-08-2024 Miscellaneous Notes TC to pt, spoke with caregiver, Breanna. Notified of results/provider response. Brenana verbalized understanding. Frank Joya LPN Can please let patient know that her chest xray was normal. Radha Batista APRN.TANNING [employer] ATTENDANT documented in this encounter [facility] 12-07-2024 Telephone encounter Note Can please let patient know that her chest xray was normal. Radha Batista APRN.TANNING [employer]ON ATTENDANT [facility] 12-07-2024 History of Present illness Narrative Radiology Service Progress Note PATIENT NAME: Brenda Le DATE OF SERVICE: December 07, 2024 TIME: 11:52 AM PATIENT IDENTITY VERIFICATION COMPLETED USING TWO (2) IDENTIFIERS: Name and Date of confirmed by patient verbally. FALL SCREENING: Has the patient had 2 falls in the last year or 1 fall with injury or currently using an Ambulatory Assistive Device (Walker, Cane, Wheelchair, Crutches, etc.)? No PATIENT GENDER DATA: Assigned female at . status: : No status: NO. PATIENT RELEVANT IMPLANT DATA REVIEWED: Not Applicable PATIENT PRESENTS WITH AN IMPLANTABLE OR ATTACHED PLANT GUARD: No RADIOLOGY DEPARTMENT: General X-ray: Exam(s) Completed: Chest X-Ray PERIPHERAL IV DATA: Not applicable SIGNED BY: Nancy Pretty December 07, 2024 11:52 AM documented in this encounter [facility] 12-07-2024 Note [facility] 12-07-2024 Instructions Radha Batista APRN.CNP - 12/07/2024 10:35 AM EST Get the chest xray. Start the tylenol 650 mg twice daily. Recheck in 2-4 weeks. documented in this encounter [facility] 12-07-2024 Note [facility] 12-07-2024 History of Present illness Narrative This is a 59 year old female who presents today with: Patient presents with: Recheck: 1 month follow up HISTORY OF PRESENT ILLNESS: Brenda Le is a 59 year old female. Patient presents with: Recheck: 1 month follow up Pt presents today to follow-up on leg pain. Refers that he legs are really bothering her. They feel like rubber. They ache. Its hard for me to walk. Refers the pain is there in the morning. Refers it does improved some during the day, but then returns around 5:00 PM. Unable to identify any triggers of symptoms. We had increase the gabapentin to 200 mg twice daily, but uncertain if this is helpful. Wearing compression. ARLINE normal. Fatigued today. She has a new CPAP and she reports that she inadvertently took off last night. She recently was in the hospital with bibasilar pneumonia. PAST MEDICAL HISTORY: PAST MEDICAL HISTORY Diagnosis Date Bilateral pneumonia 07/23/2018 Admit [facility]: pneumococcal suspected, neg culture. 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 MEDICATIONS Current Outpatient Medications Medication Sig docusate sodium (COLACE) 100 mg capsule Take 1 capsule by mouth two times a day. albuterol HFA (VENTOLIN HFA) 90 mcg/actuation inhaler Inhale 2 Puffs as instructed every 4 hours as needed for wheezing/shortness of breath. guaiFENesin (MUCINEX) 600 mg 12 hr tablet Take 2 tablets by mouth once daily. Per Dr. James yu (RELAFEN) 500 mg tablet Take 1 tablet by mouth two times a day. TAKE WITH FOOD guaiFENesin (MUCINEX) 600 mg 12 hr tablet Take 2 tablets by mouth two times a day. gabapentin (NEURONTIN) 100 mg capsule Take two capsules three times daily. omeprazole (PRILOSEC) 20 mg capsule Take 1 capsule by mouth daily before breakfast. 1/2 hr before meal. empagliflozin (JARDIANCE) 10 mg tablet Take 1 tablet by mouth daily with breakfast. sodium chloride-aloe vera (AYR SALINE GEL) nasal spray Use 1 mL in the nose two times a day. insulin glargine (LANTUS SOLOSTAR U-100 INSULIN) 100 unit/mL (3 mL) Inject 60 Units subcutaneously daily at bedtime. benztropine (COGENTIN) 0.5 mg tablet Take 0.5 mg by mouth two times a day. albuterol (PROVENTIL) 2.5 mg /3 mL (0.083 %) nebulizer solution Use 2.5 mg via nebulizer every 4 hours as needed. Every morning Menthol (COUGH DROPS) 5.8 mg Use 1 Lozenge as instructed every 2 hours as needed. Sugar-Free furosemide (LASIX) 20 mg tablet Take 1 tablet by mouth once daily. Comp Stocking,Knee,Regular,Med misc Patient to be measured for correct size. 20-30 mmHg Dx: I50.31 potassium chloride ER (KLOR-CON) 20 mEq tablet Take 1 tablet by mouth once daily. omega-3 fatty acids (FISH OIL CONCENTRATE) 1,000 mg cap Take 1 capsule by mouth once daily. Cholecalciferol, Vitamin D3, 25 mcg (1,000 unit) cap Take 1 capsule by mouth once daily. aspirin, enteric coated (ASPIRIN, ENTERIC COATED) 325 mg EC tablet Take 1 tablet by mouth once daily. Take with food. metoprolol succinate ER (TOPROL XL) 25 mg 24 hr tablet take 1 tablet by mouth every evening Lancets Test blood sugar(s) 4 times daily with sliding scale coverage. Dx: Other DM Code E11.21 Insulin: Yes blood sugar diagnostic (BLOOD GLUCOSE TEST) test strip testing QIDtimes daily and sliding scale coverage. Insulin yes Use as instructed DXE11.21 metroNIDAZOLE (METROGEL) 1 % Topical Gel Apply 1 application to affected area once daily. Location: face metroNIDAZOLE (METROGEL) 0.75 % Topical Gel Apply to affected area two times a day. polyethylene glycol 3350 (MIRALAX) 17 gram packet Take 1 Packet by mouth once daily. Dissolve dose in 4 - 8 ounces of liquid and take as directed. pramipexole (MIRAPEX) 0.5 mg tablet Take 0.5 tablets by mouth daily at bedtime. insulin needles, DISPOSABLE, (PEN NEEDLE) 31 gauge x 5/16" Use one needle per dose. 4 times daily (basaglar and humalog). Blood-Glucose Meter (FREESTYLE LITE METER) monitoring kit Used three times daily to check blood sugar. 250.00 insulin lispro (HUMALOG KWIKPEN) 100 unit/mL Sig: Administer Lispro insulin per scale AC breakfast morning, AC lunch, AC dinner as follows with glucose 150-199 2u, 200-249 3u, 250-299 5u, 300-350 8u, 350-399 11u, 400- 449 14u, 450 and above go to ER. haloperidol (HALDOL) 2 mg tablet Take by mouth. ferrous sulfate 325 mg (65 mg iron) tablet Take 1 tablet by mouth two times a day with meals. metFORMIN ER (GLUCOPHAGE XR) 500 mg 24 hr tablet Take 2 tablets by mouth two times a day before meals. Artificial Tear, Hypromellose, (SYSTANE GEL) 0.3 % gel Use 1 Drop in both eyes daily at bedtime. INVEGA SUSTENNA 156 mg/mL syrg injection clonazePAM (KLONOPIN) 0.5 mg tablet Take 0.5 mg by mouth three times daily as needed. Blood Pressure Monitor 1 Each twice daily. [...] as instructed once daily. Per Dr. Ramirez No current facility-administered medications for this visit. FAMILY HISTORY Problem Relation Age of Onset Psychiatry Mother depression Psychiatry Sister deperssion other (lung cancer) Paternal Grandfather Social History Tobacco Use Smoking status: Former Current packs/day: 0.00 Average packs/day: 2.0 packs/day for 20.0 years (40.0 ttl pk-yrs) Types: Cigarettes Start date: 01/11/1994 Quit date: 01/11/2014 Years since quittin.9 Smokeless tobacco: Never Vaping Use Vaping status: Never Used Substance Use Topics Alcohol use: No Drug use: No Comment: marijunan- Teen yrs, but not now EXAM: BP 108/72 Pulse 102 Resp 18 LMP 09/12/2017 SpO2 92% PHYSICAL EXAM: General Appearance: Well appearing, fatigued, in no acute distress, well-hydrated, well nourished.. Skin: Skin color, texture, turgor normal, no suspicious rashes or lesions. Head: Normocephalic, no masses, lesions, tenderness or abnormalities. Eyes: Anicteric sclera. Extraocular movements are intact. . Lungs: scattered rhonchi. Heart: RRR without murmur, gallop, or rubs. No ectopy. Neurologic: Gait normal. ASSESSMENT/PLAN: 1. Leg pain, bilateral - ICD9: 729.5, ICD10: M79.604, M79.605 (primary diagnosis) Continues to complaint of leg pain/weakness. Suspect that may be side effects from psychiatric medication regimen. Lumbar xray with mild degenerative changes. Taking nsaid. Completed PT. Completed ARLINE. Continue gabapentin. Add trial of tylenol twice daily routinely. - ACETAMINOPHEN 325 MG TABLET Recheck in 2-4 weeks. 2. Bacterial pneumonia - ICD9: 482.9, ICD10: J15.9 Congested today. She if fatigued today, likely from poor sleep last night. However.recently hospitalized for bibasilar pneumonia. Will go ahead and move forward with xray to ensure resolution of pneumonia. - XR CHEST 2V FRONTAL/LAT Discussed treatment plan and patient voices understanding. Patient's questions answered appropriately. Medications and potential side effects were discussed and patient voices understanding. Return to the office as scheduled or as needed for worsening/no improvement. Radha Batista APRN.PAVITHRA documented in this encounter [facility] 12-03-2024 Telephone encounter Note Pt notified. She verbalized understanding. Frank Joya LPN [facility] 12-03-2024 Miscellaneous Notes Pt notified. She verbalized understanding. Frank Joya LPN Ultrasound of the legs was normal. Patient calling and asking about ultrasound results. Please review and advise, Eunice Spivey RN documented in this encounter [facility] 12-03-2024 Telephone encounter Note Ultrasound of the legs was normal. [facility] 12-03-2024 Telephone encounter Note Patient calling and asking about ultrasound results. Please review and advise, Eunice Spivey RN [facility] 11-29-2024 Telephone encounter Note Pts nurse care manager Breanna called in to go over dates and times of Pts upcoming appointments. Went over these with her and where the Vascular study was located. [facility] 11-29-2024 Miscellaneous Notes Pts nurse care manager Breanna called in to go over dates and times of Pts upcoming appointments. Went over these with her and where the Vascular study was located. documented in this encounter [facility] 11-25-2024 Telephone encounter Note The following approved medication requests have been transmitted electronically. Requested Prescriptions Pending Prescriptions Disp Refills docusate sodium (COLACE) 100 mg capsule 60 capsule 5 Sig: Take 1 capsule by mouth two times a day. Shelia Salmon APRN.CNP [facility] 11-25-2024 Miscellaneous Notes The following approved medication requests have been transmitted electronically. Requested Prescriptions Pending Prescriptions Disp Refills docusate sodium (COLACE) 100 mg capsule 60 capsule 5 Sig: Take 1 capsule by mouth two times a day. Shelia Salmon APRN.CNP The patient has been identified by name and date of : Yes Caregiver verified no other encounters exist for this prescription request: Yes Caregiver confirmed with patient/requestor that no other refills are due, in the near future, with this provider at this time: Yes The last office visit in the department: 11/02/2024 Does the patient have a future office visit with this provider/department: Yes 12/07/2024 Requested Prescriptions Pending Prescriptions Disp Refills docusate sodium (COLACE) 100 mg capsule 60 capsule 5 Sig: Take 1 capsule by mouth two times a day. Shirley Romero RN documented in this encounter [facility] 11-25-2024 Telephone encounter Note The patient has been identified by name and date of : Yes Caregiver verified no other encounters exist for this prescription request: Yes Caregiver confirmed with patient/requestor that no other refills are due, in the near future, with this provider at this time: Yes The last office visit in the department: 11/02/2024 Does the patient have a future office visit with this provider/department: Yes 12/07/2024 Requested Prescriptions Pending Prescriptions Disp Refills docusate sodium (COLACE) 100 mg capsule 60 capsule 5 Sig: Take 1 capsule by mouth two times a day. Shirley Romero RN [facility] 2024 Telephone encounter Note Prescription Refill Information The patient has been identified by name and date of : Yes Caregiver verified no other encounters exist for this prescription request: Yes Caregiver confirmed with patient/requestor that no other refills are due, in the near future, with this provider at this time: Yes The last office visit in the department: Does the patient have a future office visit with this provider/department: Yes Requested Prescriptions Pending Prescriptions Disp Refills albuterol HFA (VENTOLIN HFA) 90 mcg/actuation inhaler 1 Each 1 Sig: Inhale 2 Puffs as instructed every 4 hours as needed for wheezing/shortness of breath. Shirley Zuniga 2024 2:40 PM [facility] 2024 Miscellaneous Notes Prescription Refill Information The patient has been identified by name and date of : Yes Caregiver verified no other encounters exist for this prescription request: Yes Caregiver confirmed with patient/requestor that no other refills are due, in the near future, with this provider at this time: Yes The last office visit in the department: Does the patient have a future office visit with this provider/department: Yes Requested Prescriptions Pending Prescriptions Disp Refills albuterol HFA (VENTOLIN HFA) 90 mcg/actuation inhaler 1 Each 1 Sig: Inhale 2 Puffs as instructed every 4 hours as needed for wheezing/shortness of breath. Shirley Zuniga 2024 2:40 PM documented in this encounter [facility] 11-12-2024 Note [facility] Medical Records Department [address] [place] [address] Discharge Summary 11/12/24 1040 MR#: [id number] Acct: [id number] Name: BRENDA LE Rep #: [id number] : 1965 58 From: Ana Liila Lebron DO PCP: ESEQUIEL Headley Status:DIS IN Location: [id number] Providers Date of Admission: 11/09/24 Date of Discharge: 11/12/24 Primary Care Physician: ESEQUIEL Headley Reason For Visit: BIBASILAR PNEUMONIA, AE COPD, RESP INSUFF Diagnosis Discharge Diagnosis (1) COPD exacerbation: Status: Chronic Code(s): J44.1 - Chronic obstructive pulmonary disease with (acute) exacerbation Plan 1. Exacerbation of COPD-aerosol treatments and IV Solu-Medrol will be continued #2 community-acquired pneumonia-patient will continue on Zosyn, I do not believe she needs IV vancomycin #3 schizophrenia-complicates care, management, recovery, and prognosis #4 type 2 diabetes-blood sugars will be monitored, sliding scale insulin will be administered as needed Total clinical time spent addressing her medical issues, reviewing all of her data, and collaborating with patient's care team: 35 minutes Medications at Discharge Home Medications cholecalciferol (vitamin D3) 25 mcg (1,000 unit) capsule (Vitamin D3) 1,000 unit PO DAILY SUPPLEMENT 10/17/17 aspirin 325 mg tablet,delayed release 325 mg PO DAILY@1600 [facility] 07/22/18 omeprazole 20 mg capsule,delayed release 20 mg PO DAILY indigestion 10/31/19 potassium chloride 20 mEq tablet,extended release(part/cryst) 20 meq PO DAILY supplement 11/16/19 clozapine 100 mg tablet 100 mg PO 4X/DAY SCHIZOPHRENIA 07/30/21 empagliflozin 10 mg tablet (Jardiance) 10 mg PO DAILY diabetes 07/30/21 furosemide 20 mg tablet 20 mg PO DAILY FLUID 07/30/21 insulin glargine 100 unit/mL (3 mL) subcutaneous pen (Lantus Solostar U-100 Insulin) 48 unit subcut DAILY@1600 DM 07/30/21 metoprolol succinate 25 mg tablet,extended release 24 hr 25 mg PO QHS HTN 07/30/21 clonazepam 0.5 mg tablet 1 mg PO BID schizophrenia 06/05/22 ferrous sulfate 325 mg (65 mg iron) tablet (Feosol) 325 mg PO .BID with meals anemia 06/05/22 pramipexole 0.5 mg tablet 0.25 mg PO QHS restless legs 06/05/22 atorvastatin 10 mg tablet 10 mg PO DAILY Cholesterol 08/14/23 guaifenesin 1,200 mg tablet, extended release 12 hr (Mucus Relief ER) 1,200 mg PO DAILY congestion 08/14/23 haloperidol 2 mg tablet 2 mg PO QHS anxiety 08/14/23 metformin 500 mg tablet,extended release 24 hr 1,000 mg PO BID Diabetes 08/14/23 benztropine 0.5 mg tablet 0.5 mg PO BID tremors 08/15/23 ondansetron 4 mg disintegrating tablet 4 mg PO Q8H PRN PRN Nausea #14 tabs 12/13/23 peg 3350-electrolytes 236 gram-22.74 gram-6.74 gram-5.86 gram solution (Golytely) 240 ml PO Q10M PRN #4,000 mL 12/13/23 ondansetron 4 mg disintegrating tablet 4 mg PO Q8H PRN PRN Nausea #10 tabs 10/14/24 docusate sodium 100 mg capsule mg PO 11/09/24 fluticasone furoate 100 mcg-vilanterol 25 mcg/dose inhalation powder (Breo Ellipta) inhalation DAILY 11/09/24 gabapentin 100 mg capsule mg 3XD 11/09/24 guaifenesin 600 mg tablet, extended release 12 hr (Mucus Relief ER) mg PO 11/09/24 omega-3 fatty acids-fish oil 300 mg-1,000 mg capsule cap 11/09/24 paliperidone palmitate 234 mg/1.5 mL intramuscular syringe (Invega Sustenna) mg IM 11/09/24 umeclidinium 62.5 mcg/actuation blister powder for inhalation (Incruse Ellipta) inhalation DAILY 11/09/24 doxycycline hyclate 100 mg tablet 100 mg PO BID 7 days #14 tabs 11/12/24 doxycycline monohydrate 100 mg tablet 100 mg PO BID #11 tabs 11/12/24 prednisone 20 mg tablet 20 mg PO BID #14 tabs 11/12/24 prednisone 20 mg tablet 40 mg (2 x 20 mg) PO DAILY #14 tabs 11/12/24 Hospital Course Operations None Procedures None Summary of Care Provided Minutes Spent on Discharge: 31 Hospital Course: This 58-year-old white female presented to the emergency room at [facility] from a local long term with fever and cough. She was seen at an urgent care and told to come to the emergency room when it was discovered that the group controller stated they could not give her any medication or breathing treatments unless it was on a medical sheet and they did not feel comfortable administering it. Workup in the ER revealed patient have an elevated white blood cell count of 12.2, chest x-ray showed evidence of bibasilar pneumonia, patient was given aerosol treatments and still had expiratory wheezing and increased respiratory rate. It was felt that the patient would benefit from admission and inpatient treatment, she was admitted to [place] [address] and initially placed on 2 antibiotics, I evaluated the patient and did not feel she needed IV vancomycin and stop this medication. Patient improved during her hospitalization was weaned off oxygen eventually. On 11/12/2024, patient was seen and examined: On examination she appea (more content not included)... [facility] 11-10-2024 Telephone encounter Note Phoned jesse Pollard /christian Huang, notified of provider instructions. She verbalized understanding. Frank Joya LPN [facility] 11-10-2024 Miscellaneous Notes Phoned jesse Pollard /christian Huang, notified of provider instructions. She verbalized understanding. Frank Joya LPN Thank you for the update. No, we did not have the mucinex on our medication list. I updated her medication list. Yes, can we please increase it to twice daily for 10 days, then resume the previous dose. Radha Batista APRN.PAVITHRA [facility] is calling asking about the mucinex. PATIENT already takes 2 tablets every morning. Pharmacy is asking if you wish for patient to take the 2 tablets twice daily for just a short period of time? They wanted to make sure the office knew patient was already taking 2 a day. Please review and advise further. Nerissa Bedolla LPN documented in this encounter [facility] 11-10-2024 Telephone encounter Note Thank you for the update. No, we did not have the mucinex on our medication list. I updated her medication list. Yes, can we please increase it to twice daily for 10 days, then resume the previous dose. Radha Batista APRN.PAVITHRA [facility] 11-10-2024 [facility]. PATIENT already takes 2 tablets every morning. Pharmacy is asking if you wish for patient to take the 2 tablets twice daily for just a short period of time? They wanted to make sure the office knew patient was already taking 2 a day. Please review and advise further. Nerissa Bedolla LPN [facility] 11-10-2024 Evaluation note Diagnosis Onset Date Resolution Schizophrenia acute October 11:49pm COPD exacerbation inactive November 09, 2024 11:49pm Hyponatremia inactive October 11:49pm Leukocytosis inactive October 11:49pm Obesity (BMI 30-39.9) inactive Oct 11:49pm Pneumonia inactive November 09, 2024 11:49pm Respiratory insufficiency inactive November 09 11:49pm [facility] Work Phone: 1(985) 696-262401-28-2025 History of Present illness Narrative* Neelima Amador RT(R) - 11/09/2024 5:30 PM EST Radiology Service Progress Note PATIENT NAME: Brenda Le DATE OF SERVICE: November 09, 2024 TIME: 5:34 PM PATIENT IDENTITY VERIFICATION COMPLETED USING TWO (2) IDENTIFIERS: Name and Date of confirmedby patient verbally. FALL SCREENING: Has the patient had 2 falls in the last year or 1 fall with injury or currently using an Ambulatory Assistive Device (Walker, Cane, Wheelchair, Crutches, etc.)? No PATIENT GENDER DATA: Assigned female at . status: : No status:NO. PATIENT RELEVANT IMPLANT DATA REVIEWED: Not Applicable PATIENT PRESENTS WITH AN IMPLANTABLE OR ATTACHED PLANT GUARD: No RADIOLOGY DEPARTMENT: General X-ray: Exam(s) Completed: Chest X-Ray PERIPHERAL IV DATA: Not applicable SIGNED BY: RT Sandra(R) November 09, 2024 5:34 PM [facility] History of Present illness Narrative* Zaira Mancilla APRN.TANNING SALON ATTENDANT - 11/09/2024 5:24 PM EST CC: Patient presents with: Chest Congestion: cough, nasal congestion x 2 days HPI Brenda Le is a 58 year old female who presents today for non-productive cough, fever, nasal congestion and SOB x one day. Her main concern is her nasal congestion. She has an albuterol inhaler and nebulizer to use at home, but has only been getting one treatment a day. She lives in a long term and is accompanied with one of her caregivers. She has a hx of COPD, HF and DM. Review of Systems Constitutional: Positive for fatigue and fever. HENT: Positive for congestion, postnasal drip, rhinorrhea, sinus pressure, sinus pain and sneezing.Negative for ear pain, facial swelling and trouble swallowing. Eyes: Negative for pain. Respiratory: Positive for cough, shortness of breath and wheezing. Cardiovascular: Negative for chest pain and palpitations. Gastrointestinal: Negative for abdominal pain, diarrhea, nausea and vomiting. Skin: Positive for pallor. Neurological: Positive for weakness. Negative for dizziness. Hematological: Negative for adenopathy. PAST MEDICAL HISTORY Diagnosis Date Bilateral pneumonia 07/23/2018 Admit [facility]: pneumococcal suspected, neg culture. + rhinovirus Constipation [...] ALLERGIES Patient has no known allergies. MEDICATIONS nabumetone (RELAFEN) 500 mg tablet^Take 1 tablet by mouth two times a day. TAKE WITH FOOD^Disp: 60 tablet^Rfl: 5 guaiFENesin (MUCINEX) 600 mg 12 hr tablet^Take 2 tablets by mouth two times a day.^Disp: 40 tablet^Rfl: 0 gabapentin (NEURONTIN) 100 mg capsule^Take two capsules three times daily.^Disp: 180 capsule^Rfl: 1 omeprazole (PRILOSEC) 20 mg capsule^Take 1 capsule by mouth daily before breakfast. 1/2 hr before meal.^Disp: 30 capsule^Rfl: 5 empagliflozin (JARDIANCE) 10 mg tablet^Take 1 tablet by mouth daily with breakfast.^Disp: 30 tablet^Rfl: 11 sodium chloride-aloe vera (AYR SALINE GEL) nasal spray^Use 1 mL in the nose two times a day.^Disp: 88 mL^Rfl: 1 insulin glargine (LANTUS SOLOSTAR U-100 INSULIN) 100 unit/mL (3 mL)^Inject 60 Units subcutaneously daily at bedtime.^Disp: 54 mL^Rfl: 3 benztropine (COGENTIN) 0.5 mg tablet^Take 0.5 mg by mouth two times a day.^Disp: ^Rfl: albuterol (PROVENTIL) 2.5 mg /3 mL (0.083 %) nebulizer solution^Use 2.5 mg via nebulizer every 4 hours as needed. Every morning^Disp: ^Rfl: albuterol HFA (VENTOLIN HFA) 90 mcg/actuation inhaler^Inhale 2 Puffs as instructed every 4 hours asneeded for wheezing/shortness of breath.^Disp: 1 Each^Rfl: 1 Menthol (COUGH DROPS) 5.8 mg^Use 1 Lozenge as instructed every 2 hours as needed. Sugar-Free^Disp: 80 Lozenge^Rfl: 1 furosemide (LASIX) 20 mg tablet^Take 1 tablet by mouth once daily.^Disp: 90 tablet^Rfl: 3 Comp Stocking,Knee,Regular,Med misc^Patient to be measured for correct size. 20- 30 mmHg Dx: I50.31^Disp: 1 Each^Rfl: 0 potassium chloride ER (KLOR-CON) 20 mEq tablet^Take 1 tablet by mouth once daily.^Disp: 30 tablet^Rfl: 5 omega-3 fatty acids (FISH OIL CONCENTRATE) 1,000 mg cap^Take 1 capsule by mouth once daily.^Disp: 30 capsule^Rfl: 11 Cholecalciferol, Vitamin D3, 25 mcg (1,000 unit) cap^Take 1 capsule by mouth once daily.^Disp: 30 capsule^Rfl: 11 aspirin, enteric coated (ASPIRIN, ENTERIC COATED) 325 mg EC tablet^Take 1 tablet by mouth once daily. Take with food.^Disp: 30 tablet^Rfl: 11 docusate sodium (COLACE) 100 mg capsule^Take 1 capsule by mouth two times a day.^Disp: 60 capsule^Rfl: 5 metoprolol succinate ER (TOPROL XL) 25 mg 24 hr tablet^take 1 tablet by mouth every evening^Disp: 30 tablet^Rfl: 11 Lancets^Test blood sugar(s) 4 times daily with sliding scale coverage. Dx: Other DM Code E11.21 Insulin: Yes^Disp: 100 Each^Rfl: 11 blood sugar diagnostic (BLOOD GLUCOSE TEST) test strip^testing QIDtimes daily and sliding scale coverage. Insulin yes Use as instructed DXE11.21^Disp: 150 Strip^Rfl: 11 metroNIDAZOLE (METROGEL) 1 % Topical Gel^Apply 1 application to affected area once daily. Location:face^Disp: 60 g^Rfl: 5 metroNIDAZOLE (METROGEL) 0.75 % Topical Gel^Apply to affected area two times a day.^Disp: 45 g^Rfl:5 polyethylene glycol 3350 (MIRALAX) 17 gram packet^Take 1 Packet by mouth once daily. Dissolve dose in 4 - 8 ounces of liquid and take as directed.^Disp: 28 Packet^Rfl: 11 pramipexole (MIRAPEX) 0.5 mg tablet^Take 0.5 tablets by mouth daily at bedtime.^Disp: 30 tablet^Rfl: 5 insulin needles, DISPOSABLE, (PEN NEEDLE) 31 gauge x 5/16"^Use one needle per dose. 4 times daily (basaglar and humalog).^Disp: 120 Each^Rfl: 11 Blood-Glucose Meter (FREESTYLE LITE METER) monitoring kit^Used three times daily to check blood sugar. 250.00^Disp: 1 Each^Rfl: 0 insulin lispro (HUMALOG KWIKPEN) 100 unit/mL^Sig: Administer Lispro insulin per scale AC breakfast morning, AC lunch, AC dinner as follows with glucose 150-199 2u, 200-249 3u, 250-299 5u, 300-350 8u,350-399 11u, 400- 449 14u, 450 and above go to ER.^Disp: 1 Each^Rfl: 5 haloperidol (HALDOL) 2 mg tablet^Take by mouth.^Disp: ^Rfl: ferrous sulfate 325 mg (65 mg iron) tablet^Take 1 tablet by mouth two times a day with meals.^Disp:120 tablet^Rfl: 5 metFORMIN ER (GLUCOPHAGE XR) 500 mg 24 hr tablet^Take 2 tablets by mouth two times a day before meals.^Disp: 360 tablet^Rfl: 3 Artificial Tear, Hypromellose, (SYSTANE GEL) 0.3 % gel^Use 1 Drop in both eyes daily at bedtime.^Disp: 10 mL^Rfl: 5 INVEGA SUSTENNA 156 mg/mL syrg injection^^Disp: ^Rfl: clonazePAM (KLONOPIN) 0.5 mg tablet^Take 0.5 mg by mouth three times daily as needed.^Disp: ^Rfl: Blood Pressure Monitor^1 Each twice daily.^Disp: 1 Kit^Rfl: 0 cloZAPine (CLOZARIL) 100 mg tablet^Take by mouth. Takes 25mg in the morning and 500mg at bedtime ^Disp: ^Rfl: umeclidinium (INCRUSE ELLIPTA) 62.5 mcg/actuation inhaler^Inhale 1 Puff as instructed once daily. Inhale one puff once daily. DO NOT CLICK OPEN UNTIL READY FOR DOSE^Disp: 1 Each^Rfl: 0 fluticasone-vilanterol (BREO ELLIPTA) 100-25 mcg/dose inhaler^Inhale 1 Inhalation as instructed once daily. Per Dr. Ramirez^Disp: 1 Each^Rfl: 5 FAMILY HISTORY Problem Relation Age of Onset Psychiatry Mother depression Psychiatry Sister deperssion other (lung cancer) Paternal Grandfather Social History Tobacco Use Smoking status: Former Current packs/day: 0.00 Average packs/day: 2.0 packs/day for 20.0 years (40.0 ttl pk-yrs) Types: Cigarettes Start date: 01/11/1994 Quit date: 01/11/2014 Years since quittin.8 Smokeless tobacco: Never Vaping Use Vaping status: Never Used Substance Use Topics Alcohol use: No Drug use: No Comment: marijunan- Teen yrs, but not now BP 122/80 Pulse (!) 122 Temp (!) 38 C (100.4 F) Resp 28 Wt 84.3 kg (185 lb 13.6 oz) LMP 09/12/2017 SpO2 94% BMI 34.42 kg/m Physical Exam Constitutional: Appearance: She is ill-appearing. HENT: Right Ear: No tenderness. Left Ear: No tenderness. Nose: Congestion present. Right Sinus: Maxillary sinus tenderness and frontal sinus tenderness present. Left Sinus: Maxillary sinus tenderness and frontal sinus tenderness present. Mouth/Throat: Lips: [place]. Mouth: Mucous membranes are moist. Pharynx: Posterior oropharyngeal erythema and postnasal drip present. No uvula swelling. Tonsils: No tonsillar exudate. Eyes: General: Lids are normal. Conjunctiva/sclera: Conjunctivae normal. Cardiovascular: Rate and Rhythm: Tachycardia present. Pulses: Radial pulses are 3+ on the right side and 3+ on the left side. Heart sounds: Murmur heard. Systolic murmur is present. Pulmonary: Effort: Tachypnea present. Breath sounds: Examination of the right-upper field reveals wheezing. Examination of the left-upperfield reveals rales. Examination of the right- middle field reveals rales. Examination of the right-lower field reveals rales. Examination of the left-lower field reveals rales. Wheezing (posterior) and rales present. Abdominal: General: Bowel sounds are normal. Palpations: Abdomen is soft. Tenderness: There is no abdominal tenderness. Musculoskeletal: Right lower leg: No edema. Left lower leg: No edema. Skin: General: Skin is warm. Neurological: Mental Status: She is alert and oriented to person, place, and time. GCS: GCS eye subscore is 4. GCS verbal subscore is 5. GCS motor subscore is 6. Psychiatric: Behavior: Behavior is cooperative. Health maintenance reviewed with patient: Spirometry Never done Depression Screening Never done Anxiety Screening Never done HIV Screening Never done BP Controlled (<130/80) Never done Mammogram Screening due on 06/27/2022 Shingrix Vaccine(2 of 2) due on 02/03/2024 Dilated Retinal Exam due on 11/17/2024 HbA1C due on 05/02/2025 Lung Cancer Screening due on 05/04/2025 LDL Cholesterol due on 11/02/2025 Diabetic Foot Exam due on 11/02/2025 Annual PCP Team Chronic Disease Visit due on 11/02/2025 Cervical Cancer Screening due on 01/24/2026 Colorectal Cancer Screening due on 12/19/2026 DTaP,Tdap,Td Vaccine(3 - Td or Tdap) due on 07/18/2028 Alpha-1 Antitrypsin Deficiency Screening Completed Influenza Vaccine Completed RSV Vaccine Completed Hepatitis C Screening Completed Covid-19 Vaccine Completed Pneumococcal Vaccine: 50+ Completed Urine Albumin:Creatinine Ratio Discontinued ASSESSMENT/PLAN: 1. Pneumonia of right lung due to infectious organism, unspecified part of lung - ICD9: 483.8, ICD10: J18.9 (primary diagnosis) Non-productive cough with SOB x 1 day. Rales and wheezing auscultated. No change after nebulizer treatment. Weakness Hx COPD and HF. Initial plan was to treat outpatient, -Discussed treatment plan with patient and caregiver. It was clarified the patient would need to begin ATB and nebulizer treatments tonight, especially considering her co morbidities and current symptoms. After the caregiver spoke to the long term and pharmacy, it was decided to take the patient to [facility] ED due to the inability of securing the antibiotics this evening and administering breathing treatments required. Report called to [facility] ED, spoke with ED attending. 2. Fever, unspecified fever cause - ICD9: 780.60, ICD10: R50.9 Temp 100.4f tympanic at initial presentation. Repeat temp prior to leaving for the ED and after 1000 mg of acetaminophen, 99.2f. Contribute to pneumonia - ACETAMINOPHEN 500 MG TABLET 3. Acute cough - ICD9: 786.2, ICD10: R05.1 - XR CHEST 2V FRONTAL/LAT IMPRESSION: Patchy density in the lingula raises the possibility of pneumonia. - IPRATROPIUM 0.5 MG-ALBUTEROL 3 MG (2.5 MG BASE)/3 ML NEBULIZATION SOLN 4. URI, acute - ICD9: 465.9, ICD10: J06.9 Nasal congestion, sneezing, sinus pain and pressure x 1 day - Negative for Influenza. - INFLUENZA A&B MOLECULAR (POC) Maty Atkinson TEACHING PROVIDER (Physician/PA/[employer] SH[employer]) NOTE OF PERSONAL INVOLVEMENT IN CARE: I have personally seen and examined the patient and performed the medical decision-making components. I have reviewed the Advanced Practice Registered Nurse ([employer]) Student's documentation and verified the findings in the note as written. Any additions or changes are noted in bold/italics. Signature: Zaira Mancilla Date: 11/09/2024 Time: 7:23 PM documented [facility] encounter[facility] Telephone encounter Note * Telephone Encounter - Frank Joya LPN - 11/09/2024 4:08 PM EST Spoke /c education analyst at long term, notified of provider response. She verbalized understanding. Frank Joya LPN [facility]01-28-2025 Miscellaneous Notes* Telephone Encounter - Frank Joya LPN - 11/09/2024 4:08 PM EST Spoke /c education analyst at long term, notified of provider response. She verbalized understanding. Frank Joya LPN * Telephone Encounter - Radha Batista APRN.PAVITHRA - 11/09/2024 2:55 PM EST Lets go ahead and increase the nabumetone (relafen) to twice daily with food. I sent a new script to the pharmacy. Lets also increase the gabapentin to 2 capsule by mouth three times daily. Please send me an update in a week so we can see if this is helping. I sent mucinex to the pharmacy to help with the congestion. However, I would recommend considering coming into an appointment or urgent care to have a swab for covid/flu/rsv. Radha Batista APRN.TANNING SALON ATTENDANT * Telephone Encounter - Anusha Hansen RN - 11/09/2024 2:30 PM EST Breanna with [facility] calls with patient. Below messages reviewed with verbalized understanding. Breanna reports that patient continues to have quite a bit of leg and back pain and asking if their isanything further she can try for pain as gabapentin is not helping. PVR is scheduled for 11/26/2024. Patient is reporting a cough with sinus congestion/yellow drainage that started yesterday. No SOB, CP, fever. Breanna asking if a prescription for something OTC can be sent to [facility] as they can't give anything topatient that is not prescribed and she is asking for something for symptoms. Call back number is [phone]. Anusha Hansen, JAH * Telephone Encounter - Татьяна Escobar MA - 11/08/2024 10:13 AM EST Tried to reach pt, line just rings. Will try again later. Татьяна Escobar MA * Telephone Encounter - Radha Batista APRN.CNP - 11/05/2024 4:53 PM EST Can please patient know that I received her labs. Her sodium is a little low, which could happen ifshe is drinking too much water. I would like to have her repeat this in a week or two. Her platelets were also just minimally low, so we'll check this again at that time. Her back xray showed some arthritic changes. Her muscle enzymes were good/normal. Her diabetes is well controlled. Her cholesterol panel looked good, except her triglycerides were a little elevated, but this could be because we did the labwork non-fasting. Her bad cholesterol is good! documented in this encounterEast [facility]01-28-[facility]25 Telephone encounter Note * Telephone Encounter - Radha Batista APRN.CNP - 11/09/2024 2:55 PM EST Lets go ahead and increase the nabumetone (relafen) to twice daily with food. I sent a new script to the pharmacy. Lets also increase the gabapentin to 2 capsule by mouth three times daily. Please send me an update in a week so we can see if this is helping. I sent mucinex to the pharmacy to help with the congestion. However, I would recommend considering coming into an appointment or urgent care to have a swab for covid/flu/rsv. Radha Batista APRN.PAVITHRA [facility]01-28-[facility] Telephone encounter Note* Telephone Encounter - Anusha Hansen RN - 11/09/2024 2:30 PM EST Breanna with [facility] calls with patient. Below messages reviewed with verbalized understanding. Breanna reports that patient continues to have quite a bit of leg and back pain and asking if their isanything further she can try for pain as gabapentin is not helping. PVR is scheduled for 11/26/2024. Patient is reporting a cough with sinus congestion/yellow drainage that started yesterday. No SOB, CP, fever. Breanna asking if a prescription for something OTC can be sent to [facility] as they can't give anything topatient that is not prescribed and she is asking for something for symptoms. Call back number is [phone]. Anusha Hansen RN [facility]01-27-2025 Telephone encounter Note* Telephone Encounter - Татьяна Escobar MA - 11/08/2024 10:13 AM EST Tried to reach pt, line just rings. Will try again later. Татьяна Escobar MA [facility]01-24-2025 Telephone encounter Note* Telephone Encounter - Radha Batista APRN.PAVITHRA - 11/05/2024 4:53 PM EST Can please patient know that I received her labs. Her sodium is a little low, which could happen ifshe is drinking too much water. I would like to have her repeat this in a week or two. Her platelets were also just minimally low, so we'll check this again at that time. Her back xray showed some arthritic changes. Her muscle enzymes were good/normal. Her diabetes is well controlled. Her cholesterol panel looked good, except her triglycerides were a little elevated, but this could be because we did the labwork non-fasting. Her bad cholesterol is good! [facility]01-21-2025 History of Present illness Narrative* Neelima Amador, RT(R) - 11/02/2024 3:20 PM EST Radiology Service Progress Note PATIENT NAME: Brenda Le DATE OF SERVICE: November 02, 2024 TIME: 3:28 PM PATIENT IDENTITY VERIFICATION COMPLETED USING TWO (2) IDENTIFIERS: Name and Date of confirmedby patient verbally. FALL SCREENING: Has the patient had 2 falls in the last year or 1 fall with injury or currently using an Ambulatory Assistive Device (Walker, Cane, Wheelchair, Crutches, etc.)? No PATIENT GENDER DATA: Assigned female at . status: : No status:NO. PATIENT RELEVANT IMPLANT DATA REVIEWED: Not Applicable PATIENT PRESENTS WITH AN IMPLANTABLE OR ATTACHED PLANT GUARD: No RADIOLOGY DEPARTMENT: General X-ray: Exam(s) Completed: Spine X-Ray(s): Lumbar AP / LAT / L5-S1 PERIPHERAL IV DATA: Not applicable SIGNED jamaica Reeves November 02, 2024 3:28 PM documented in this encounterEast [facility]01-21-2025 [facility]01-21-2025 Instructions* Patient Instructions* Radha Batista APRN.CNP - 11/02/2024 2:47 PM EST Get the labs. Get the xray. Schedule the circulation test. Increase the afternoon gabapentin to 200 mg. documented in this encounterEast [facility]01-21-2025 [facility]01-21-2025 History of Present illness Narrative* Radha Batista APRN.CNP - 11/02/2024 2:07 PM EST This is a 58 year old female who presents today with: Patient presents with: Recheck: Follow up on bilateral leg pain HISTORY OF PRESENT ILLNESS: Brenda Le is a 58 year old female. Patient presents with: Recheck: Follow up on bilateral leg pain Pt presents today for BLE pain. Refers that leg pains start every day around 5:00. Aches -- similar to her restless legs. Not doing any activity that precipitates it.r Refers that when she goes to bed, she is okay, because she takes all of her medications. Refers that she does drag during the day. Refers that she just doesn't feel that her legs are working right. Refers that she has stumbling around during the day. No n/t, but she used to. Wearing compression. Her cholesterol medication had been put on hold to see if there as an improvement with the leg weakness, but patient reports really no difference. PAST MEDICAL HISTORY: PAST MEDICAL HISTORY Diagnosis Date Bilateral pneumonia 07/23/2018 Admit [facility]: pneumococcal suspected, neg culture. 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[facility], pt was on metformin for a while but taken off - pt never told if she had DM or not Major depressive disorder, recurrent episode, unspecified Nonspecific elevation of levels of transaminase or lactic acid dehydrogenase (LDH) LIDA (obstructive sleep apnea) Pneumonia Schizophreniform disorder, chronic condition ([facility]) Simple endometrial hyperplasia without atypia mirena IUD 01/2011 PAST SURGICAL HISTORY Procedure Laterality Date CHOLECYSTECTOMY 1998 open COLONOSCOPY W/BIOPSY SINGLE/MULTIPLE 12/19/2016 Normal colonoscopy-10 year follow-up PAST SURGICAL HISTORY OF 1982 corrective jaw surgery ALLERGIES Patient has no known allergies. MEDICATIONS Current Outpatient Medications Medication Sig gabapentin (NEURONTIN) 100 mg capsule Take one capsule three time daily. omeprazole (PRILOSEC) 20 mg capsule Take 1 capsule by mouth daily before breakfast. 1/2 hr before meal. nabumetone (RELAFEN) 500 mg tablet Take 1 tablet by mouth once daily. TAKE WITH FOOD empagliflozin (JARDIANCE) 10 mg tablet Take 1 tablet by mouth daily with breakfast. sodium chloride-aloe vera (AYR SALINE GEL) nasal spray Use 1 mL in the nose two times a day. insulin glargine (LANTUS SOLOSTAR U-100 INSULIN) 100 unit/mL (3 mL) Inject 60 Units subcutaneously daily at bedtime. benztropine (COGENTIN) 0.5 mg tablet Take 0.5 mg by mouth two times a day. albuterol (PROVENTIL) 2.5 mg /3 mL (0.083 %) nebulizer solution Use 2.5 mg via nebulizer every 4 hours as needed. Every morning albuterol HFA (VENTOLIN HFA) 90 mcg/actuation inhaler Inhale 2 Puffs as instructed every 4 hours asneeded for wheezing/shortness of breath. Menthol (COUGH DROPS) 5.8 mg Use 1 Lozenge as instructed every 2 hours as needed. Sugar-Free furosemide (LASIX) 20 mg tablet Take 1 tablet by mouth once daily. Comp Stocking,Knee,Regular,Med misc Patient to be measured for correct size. 20- 30 mmHg Dx: I50.31 potassium chloride ER (KLOR-CON) 20 mEq tablet Take 1 tablet by mouth once daily. omega-3 fatty acids (FISH OIL CONCENTRATE) 1,000 mg cap Take 1 capsule by mouth once daily. Cholecalciferol, Vitamin D3, 25 mcg (1,000 unit) cap Take 1 capsule by mouth once daily. aspirin, enteric coated (ASPIRIN, ENTERIC COATED) 325 mg EC tablet Take 1 tablet by mouth once daily. Take with food. docusate sodium (COLACE) 100 mg capsule Take 1 capsule by mouth two times a day. metoprolol succinate ER (TOPROL XL) 25 mg 24 hr tablet take 1 tablet by mouth every evening Lancets Test blood sugar(s) 4 times daily with sliding scale coverage. Dx: Other DM Code E11.21 Insulin: Yes blood sugar diagnostic (BLOOD GLUCOSE TEST) test strip testing QIDtimes daily and sliding scale coverage. Insulin yes Use as instructed DXE11.21 metroNIDAZOLE (METROGEL) 1 % Topical Gel Apply 1 application to affected area once daily. Location:face metroNIDAZOLE (METROGEL) 0.75 % Topical Gel Apply to affected area two times a day. polyethylene glycol 3350 (MIRALAX) 17 gram packet Take 1 Packet by mouth once daily. Dissolve dose in 4 - 8 ounces of liquid and take as directed. pramipexole (MIRAPEX) 0.5 mg tablet Take 0.5 tablets by mouth daily at bedtime. insulin needles, DISPOSABLE, (PEN NEEDLE) 31 gauge x 5/16" Use one needle per dose. 4 times daily (basaglar and humalog). Blood-Glucose Meter (FREESTYLE LITE METER) monitoring kit Used three times daily to check blood sugar. 250.00 insulin lispro (HUMALOG KWIKPEN) 100 unit/mL Sig: Administer Lispro insulin per scale AC breakfast morning, AC lunch, AC dinner as follows with glucose 150-199 2u, 200-249 3u, 250-299 5u, 300-350 8u,350-399 11u, 400- 449 14u, 450 and above go to ER. haloperidol (HALDOL) 2 mg tablet Take by mouth. ferrous sulfate 325 mg (65 mg iron) tablet Take 1 tablet by mouth two times a day with meals. metFORMIN ER (GLUCOPHAGE XR) 500 mg 24 hr tablet Take 2 tablets by mouth two times a day before meals. Artificial Tear, Hypromellose, (SYSTANE GEL) 0.3 % gel Use 1 Drop in both eyes daily at bedtime. guaiFENesin (MUCINEX) 600 mg 12 hr tablet Take 2 tablets by mouth two times a day. INVEGA SUSTENNA 156 mg/mL syrg injection clonazePAM (KLONOPIN) 0.5 mg tablet Take 0.5 mg by mouth three times daily as needed. Blood Pressure Monitor 1 Each twice daily. [...] as instructed once daily. Per Dr. Ramirez No current facility-administered medications for this visit. FAMILY HISTORY Problem Relation Age of Onset Psychiatry Mother depression Psychiatry Sister deperssion other (lung cancer) Paternal Grandfather Social History Tobacco Use Smoking status: Former Current packs/day: 0.00 Average packs/day: 2.0 packs/day for 20.0 years (40.0 ttl pk-yrs) Types: Cigarettes Start date: 01/11/1994 Quit date: 01/11/2014 Years since quittin.8 Smokeless tobacco: Never Vaping Use Vaping status: Never Used Substance Use Topics Alcohol use: No Drug use: No Comment: leisaan- Teen yrs, but not now EXAM: BP 128/76 Pulse 110 Resp 16 LMP 09/12/2017 SpO2 93% PHYSICAL EXAM: General Appearance: Well appearing, alert, in no acute distress, well-hydrated, well nourished.. Skin: Skin color, texture, turgor normal, no suspicious rashes or lesions. Head: Normocephalic, no masses, lesions, tenderness or abnormalities. Eyes: Anicteric sclera. Extraocular movements are intact. . Lungs: Lungs clear to auscultation. No wheezing, rhonchi, rales.. Heart: RRR without murmur, gallop, or rubs. No ectopy. Extremities: no edema. Feet cold/pale. +2 dp/pt pulses. Good cap refill. Neurologic: Gait normal. Sensation grossly intact. Unable to illicit reflexes bilat. = strength bilat. No foot drop. Feet:Shoes and socks removed, No deformities, ulcers, calluses, normal distal pulses, and sensitiveto 10 gm monofilament ASSESSMENT/PLAN: 1. Weakness of both lower extremities - ICD9: 729.89, ICD10: R29.898 (primary diagnosis) Will get lower back xray to r/o as source. Get labs. Get PVR. - XR LUMBAR GENERAL 3V AP/LAT/L5-S1 - COMPLETE BLOOD COUNT AND DIFFERENTIAL - PVR ANK PRESS ASHELY [facility] LAB - CREATINE KINASE/CK - ALDOLASE BLD 2. Uncontrolled type 2 diabetes mellitus with hyperglycemia (HCC) - ICD9: 250.02, ICD10: E11.65 - Control undetermined, due for labs Get labs. - HEMOGLOBIN A1C 3. Hyperlipidemia, unspecified hyperlipidemia type - ICD9: 272.4, ICD10: E78.5 - Control undetermined, due for labs - COMPREHENSIVE METABOLIC PANEL - LIPID PANEL, NONFASTING 4. Leg pain, bilateral - ICD9: 729.5, ICD10: M79.604, M79.605 Discomfort primarily worse in the evenings. Will go ahead and increase the afternoon gabapentin dose to 200 mg. - GABAPENTIN 100 MG CAPSULE Discussed treatment plan and patient voices understanding. Patient's questions answered appropriately. Medications and potential side effects were discussed and patient voices understanding. Return to the office as scheduled or as needed for worsening/no improvement. Radha Batista APRN.TANNING SALON ATTENDANT documented in this encounterEast [facility]01-17-2025 Telephone encounter Note * Telephone Encounter - Anusha Hansen RN - 10/29/2024 11:51 AM EST The patient has been identified by name and date of : Yes Caregiver verified no other encounters exist for this prescription request: Yes Caregiver confirmed with patient/requestor that no other refills are due, in the near future, with this provider at this time: Yes The last office visit in the department: 09/28/2024 Does the patient have a future office visit with this provider/department: 12/28/2024 Requested Prescriptions Pending Prescriptions Disp Refills gabapentin (NEURONTIN) 100 mg capsule 90 capsule 1 Sig: Take one capsule three time daily. omeprazole (PRILOSEC) 20 mg capsule 30 capsule 5 Sig: Take 1 capsule by mouth daily before breakfast. 1/2 hr before meal. Anusha Hansen RN October 29, 2024 11:51 AM [facility]01-17-2025 Miscellaneous Notes* Telephone Encounter - Anusha Hansen RN - 10/29/2024 11:51 AM EST The patient has been identified by name and date of : Yes Caregiver verified no other encounters exist for this prescription request: Yes Caregiver confirmed with patient/requestor that no other refills are due, in the near future, with this provider at this time: Yes The last office visit in the department: 09/28/2024 Does the patient have a future office visit with this provider/department: 12/28/2024 Requested Prescriptions Pending Prescriptions Disp Refills gabapentin (NEURONTIN) 100 mg capsule 90 capsule 1 Sig: Take one capsule three time daily. omeprazole (PRILOSEC) 20 mg capsule 30 capsule 5 Sig: Take 1 capsule by mouth daily before breakfast. 1/2 hr before meal. Anusha Hansen RN October 29, 2024 11:51 AM documented in this encounterEast [facility]12-23-2024 Telephone encounter Note * Telephone Encounter - Shirley Romero RN - 10/04/2024 4:10 PM EST The patient has been identified by name and date of : Yes Caregiver verified no other encounters exist for this prescription request: Yes Caregiver confirmed with patient/requestor that no other refills are due, in the near future, with this provider at this time: Yes The last office visit in the department: 09/28/2024 Does the patient have a future office visit with this provider/department: Yes 12/28/2024 Requested Prescriptions Pending Prescriptions Disp Refills nabumetone (RELAFEN) 500 mg tablet 30 tablet Sig: Take 1 tablet by mouth once daily. TAKE WITH FOOD empagliflozin (JARDIANCE) 10 mg tablet 30 tablet Sig: Take 1 tablet by mouth daily with breakfast. Shirley Romero RN [facility]12-23-2024 Miscellaneous Notes* Telephone Encounter - Shirley Romero RN - 10/04/2024 4:10 PM EST The patient has been identified by name and date of : Yes Caregiver verified no other encounters exist for this prescription request: Yes Caregiver confirmed with patient/requestor that no other refills are due, in the near future, with this provider at this time: Yes The last office visit in the department: 09/28/2024 Does the patient have a future office visit with this provider/department: Yes 12/28/2024 Requested Prescriptions Pending Prescriptions Disp Refills nabumetone (RELAFEN) 500 mg tablet 30 tablet Sig: Take 1 tablet by mouth once daily. TAKE WITH FOOD empagliflozin (JARDIANCE) 10 mg tablet 30 tablet Sig: Take 1 tablet by mouth daily with breakfast. Shirley Romero RN documented in this encounterEast [facility] Hospital12-17-2024 Instructions* Patient Instructions* Radha Batista APRN.CNP - 09/28/2024 1:40 PM EST Increase the gabapentin to 3 times daily. Recheck in 3 months, sooner if needed. documented in this encounterEast [facility]12-17[facility] History of Present illness Narrative* Radha Batista APRN.TANNING SALON ATTENDANT - 09/28/2024 1:09 PM EST This is a 58 year old female who presents today with: Patient presents with: Recheck: 3 month follow up HISTORY OF PRESENT ILLNESS: Brenda Le is a 58 year old female. Patient presents with: Recheck: 3 month follow up Pt presents today for recheck of her leg pain. At last visit, we started low-dose gabapentin to see if that helped her leg pain. Refers that thinks the gabapentin has helped some. Pain is improved during the day. Still gets some restless legs and leg pain in the evening, but feels that it improves after she takes the evening dose of gabapentin. She recently had an appt with cardiology and is temporarily holding statin to see if this improves her leg pain. PAST MEDICAL HISTORY: PAST MEDICAL HISTORY Diagnosis Date Bilateral pneumonia 07/23/2018 Admit [facility]: pneumococcal suspected, neg culture. 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 MEDICATIONS Current Outpatient Medications Medication Sig sodium chloride-aloe vera (AYR SALINE GEL) nasal spray Use 1 mL in the nose two times a day. gabapentin (NEURONTIN) 100 mg capsule Take one at bedtime X 3 nights, then increase to twice daily. insulin glargine (LANTUS SOLOSTAR U-100 INSULIN) 100 unit/mL (3 mL) Inject 60 Units subcutaneously daily at bedtime. benztropine (COGENTIN) 0.5 mg tablet Take 0.5 mg by mouth two times a day. albuterol (PROVENTIL) 2.5 mg /3 mL (0.083 %) nebulizer solution Use 2.5 mg via nebulizer every 4 hours as needed. Every morning albuterol HFA (VENTOLIN HFA) 90 mcg/actuation inhaler Inhale 2 Puffs as instructed every 4 hours asneeded for wheezing/shortness of breath. Menthol (COUGH DROPS) 5.8 mg Use 1 Lozenge as instructed every 2 hours as needed. Sugar-Free furosemide (LASIX) 20 mg tablet Take 1 tablet by mouth once daily. Comp Stocking,Knee,Regular,Med misc Patient to be measured for correct size. 20- 30 mmHg Dx: I50.31 potassium chloride ER (KLOR-CON) 20 mEq tablet Take 1 tablet by mouth once daily. omega-3 fatty acids (FISH OIL CONCENTRATE) 1,000 mg cap Take 1 capsule by mouth once daily. nabumetone (RELAFEN) 500 mg tablet Take 1 tablet by mouth once daily. TAKE WITH FOOD Cholecalciferol, Vitamin D3, 25 mcg (1,000 unit) cap Take 1 capsule by mouth once daily. aspirin, enteric coated (ASPIRIN, ENTERIC COATED) 325 mg EC tablet Take 1 tablet by mouth once daily. Take with food. docusate sodium (COLACE) 100 mg capsule Take 1 capsule by mouth two times a day. empagliflozin (JARDIANCE) 10 mg tablet Take 1 tablet by mouth daily with breakfast. metoprolol succinate ER (TOPROL XL) 25 mg 24 hr tablet take 1 tablet by mouth every evening Lancets Test blood sugar(s) 4 times daily with sliding scale coverage. Dx: Other DM Code E11.21 Insulin: Yes blood sugar diagnostic (BLOOD GLUCOSE TEST) test strip testing QIDtimes daily and sliding scale coverage. Insulin yes Use as instructed DXE11.21 omeprazole (PRILOSEC) 20 mg capsule Take 1 capsule by mouth daily before breakfast. 1/2 hr before meal. metroNIDAZOLE (METROGEL) 1 % Topical Gel Apply 1 application to affected area once daily. Location:face metroNIDAZOLE (METROGEL) 0.75 % Topical Gel Apply to affected area two times a day. polyethylene glycol 3350 (MIRALAX) 17 gram packet Take 1 Packet by mouth once daily. Dissolve dose in 4 - 8 ounces of liquid and take as directed. pramipexole (MIRAPEX) 0.5 mg tablet Take 0.5 tablets by mouth daily at bedtime. insulin needles, DISPOSABLE, (PEN NEEDLE) 31 gauge x 5/16" Use one needle per dose. 4 times daily (basaglar and humalog). Blood-Glucose Meter (FREESTYLE LITE METER) monitoring kit Used three times daily to check blood sugar. 250.00 insulin lispro (HUMALOG KWIKPEN) 100 unit/mL Sig: Administer Lispro insulin per scale AC breakfast morning, AC lunch, AC dinner as follows with glucose 150-199 2u, 200-249 3u, 250-299 5u, 300-350 8u,350-399 11u, 400- 449 14u, 450 and above go to ER. haloperidol (HALDOL) 2 mg tablet Take by mouth. ferrous sulfate 325 mg (65 mg iron) tablet Take 1 tablet by mouth two times a day with meals. metFORMIN ER (GLUCOPHAGE XR) 500 mg 24 hr tablet Take 2 tablets by mouth two times a day before meals. Artificial Tear, Hypromellose, (SYSTANE GEL) 0.3 % gel Use 1 Drop in both eyes daily at bedtime. guaiFENesin (MUCINEX) 600 mg 12 hr tablet Take 2 tablets by mouth two times a day. INVEGA SUSTENNA 156 mg/mL syrg injection clonazePAM (KLONOPIN) 0.5 mg tablet Take 0.5 mg by mouth three times daily as needed. Blood Pressure Monitor 1 Each twice daily. [...] as instructed once daily. Per Dr. Ramirez No current facility-administered medications for this visit. FAMILY HISTORY Problem Relation Age of Onset Psychiatry Mother depression Psychiatry Sister deperssion other (lung cancer) Paternal Grandfather Social History Tobacco Use Smoking status: Former Current packs/day: 0.00 Average packs/day: 2.0 packs/day for 20.0 years (40.0 ttl pk-yrs) Types: Cigarettes Start date: 01/11/1994 Quit date: 01/11/2014 Years since quittin.7 Smokeless tobacco: Never Vaping Use Vaping status: Never Used Substance Use Topics Alcohol use: No Drug use: No Comment: jeremy- Teen yrs, but not now EXAM: BP 124/80 Pulse 99 Resp 16 Wt 84.8 kg (187 lb) LMP 09/12/2017 SpO2 97% BMI 34.63 kg/m PHYSICAL EXAM: General Appearance: Well appearing, alert, in no acute distress, well-hydrated, well nourished.. Skin: Skin color, texture, turgor normal, no suspicious rashes or lesions. Head: Normocephalic, no masses, lesions, tenderness or abnormalities. Eyes: Anicteric sclera. Extraocular movements are intact. . Lungs: Lungs clear to auscultation. No wheezing, rhonchi, rales.. Heart: RRR without murmur, gallop, or rubs. No ectopy. Extremities: No deformities, edema, skin discoloration, clubbing or cyanosis. Good capillary refill. . Neurologic: Gait normal. ASSESSMENT/PLAN: 1. Leg pain, bilateral - ICD9: 729.5, ICD10: M79.604, M79.605 Seems that has helped somewhat, but morning dose is wearing off prior to evening dose. Will go ahead and add an afternoon dose to help get better coverage. Plan to recheck in 3 months. - GABAPENTIN 100 MG CAPSULE Discussed treatment plan and patient voices understanding. Patient's questions answered appropriately. Medications and potential side effects were discussed and patient voices understanding. Return to the office as scheduled or as needed for worsening/no improvement. Radha Batista APRN.TANNING [employer] ATTENDANT [facility] Telephone encounter Note * Telephone Encounter - Eunice Spivey RN - 09/24/2024 8:16 AM EST The patient has been identified by name and date of : Yes Caregiver verified no other encounters exist for this prescription request: Yes Caregiver confirmed with patient/requestor that no other refills are due, in the near future, with this provider at this time: Yes The last office visit in the department: 09/08/2024 Does the patient have a future office visit with this provider/department: Yes 09/28/2024 Requested Prescriptions Pending Prescriptions Disp Refills sodium chloride-aloe vera (AYR SALINE GEL) nasal spray 88 mL 1 Sig: Use 1 mL in the nose two times a day. Eunice Spivey RN September 24, 2024 8:16 AM [facility]12-13-[facility] Miscellaneous Notes* Telephone Encounter - Eunice Spivey RN - 09/24/2024 8:16 AM EST The patient has been identified by name and date of : Yes Caregiver verified no other encounters exist for this prescription request: Yes Caregiver confirmed with patient/requestor that no other refills are due, in the near future, with this provider at this time: Yes The last office visit in the department: 09/08/2024 Does the patient have a future office visit with this provider/department: Yes 09/28/2024 Requested Prescriptions Pending Prescriptions Disp Refills sodium chloride-aloe vera (AYR SALINE GEL) nasal spray 88 mL 1 Sig: Use 1 mL in the nose two times a day. Eunice Spivey RN September 24, 2024 8:16 AM documented in [facility] History of Present illness Narrative* Fuentes Renee MD - 09/20/2024 1:03 PM EST Images from the original note were not included. Fuentes Renee MD Interventional Cardiology [address] [place] [address] [phone] Chief Complaint Patient presents with: yearly check HISTORY OF PRESENT ILLNESS: Ms. Le is a 58 year old female. Follow-up today she has been seen for inappropriate sinus tachycardia which managed and controlled with beta-blockers doing well from the cardiac point of view denies any chest pain palpitation or shortness of breath his major complaint leg weakness and fatigue Cardiac Risk Factors age (male over 45, female over 55), family history of CAD PAST MEDICAL HISTORY Diagnosis Date Bilateral pneumonia 07/23/2018 Admit [facility]: pneumococcal suspected, neg culture. + rhinovirus Constipation [...] Social History Tobacco Use Smoking status: Former Current packs/day: 0.00 Average packs/day: 2.0 packs/day for 20.0 years (40.0 ttl pk-yrs) Types: Cigarettes Start date: 01/11/1994 Quit date: 01/11/2014 Years since quittin.6 Smokeless tobacco: Never Vaping Use Vaping status: Never Used Substance Use Topics Alcohol use: No Drug use: No Comment: marijunan- Teen yrs, but not now ALLERGIES No Known Allergies Medications: Current Outpatient Medications Medication Sig Dispense Refill gabapentin (NEURONTIN) 100 mg capsule Take one at bedtime X 3 nights, then increase to twice daily.60 capsule 0 insulin glargine (LANTUS SOLOSTAR U-100 INSULIN) 100 unit/mL (3 mL) Inject 60 Units subcutaneously daily at bedtime. 54 mL 3 benztropine (COGENTIN) 0.5 mg tablet Take 0.5 mg by mouth two times a day. albuterol (PROVENTIL) 2.5 mg /3 mL (0.083 %) nebulizer solution Use 2.5 mg via nebulizer every 4 hours as needed. Every morning albuterol HFA (VENTOLIN HFA) 90 mcg/actuation inhaler Inhale 2 Puffs as instructed every 4 hours asneeded for wheezing/shortness of breath. 1 Each 1 Menthol (COUGH DROPS) 5.8 mg Use 1 Lozenge as instructed every 2 hours as needed. Sugar-Free 80 Lozenge 1 furosemide (LASIX) 20 mg tablet Take 1 tablet by mouth once daily. 90 tablet 3 Comp Stocking,Knee,Regular,Med misc Patient to be measured for correct size. 20- 30 mmHg Dx: I50.31 1 Each 0 potassium chloride ER (KLOR-CON) 20 mEq tablet Take 1 tablet by mouth once daily. 30 tablet 5 omega-3 fatty acids (FISH OIL CONCENTRATE) 1,000 mg cap Take 1 capsule by mouth once daily. 30 capsule 11 nabumetone (RELAFEN) 500 mg tablet Take 1 tablet by mouth once daily. TAKE WITH FOOD 30 tablet 2 Cholecalciferol, Vitamin D3, 25 mcg (1,000 unit) cap Take 1 capsule by mouth once daily. 30 aspirin, enteric coated (ASPIRIN, ENTERIC COATED) 325 mg EC tablet Take 1 tablet by mouth once daily. Take with food. 30 tablet 11 docusate sodium (COLACE) 100 mg capsule Take 1 capsule by mouth two times a day. 60 capsule 5 empagliflozin (JARDIANCE) 10 mg tablet Take 1 tablet by mouth daily with breakfast. 30 tablet 3 metoprolol succinate ER (TOPROL XL) 25 mg 24 hr tablet take 1 tablet by mouth every evening 30 tablet 11 Lancets Test blood sugar(s) 4 times daily with sliding scale coverage. Dx: Other DM Code E11.21 Insulin: Yes 100 Each 11 blood sugar diagnostic (BLOOD GLUCOSE TEST) test strip testing QIDtimes daily and sliding scale coverage. Insulin yes Use as instructed DXE11.21 150 Strip 11 omeprazole (PRILOSEC) 20 mg capsule Take 1 capsule by mouth daily before breakfast. 1/2 hr before meal. 30 capsule 5 metroNIDAZOLE (METROGEL) 1 % Topical Gel Apply 1 application to affected area once daily. Location:face 60 g 5 metroNIDAZOLE (METROGEL) 0.75 % Topical Gel Apply to affected area two times a day. 45 g 5 polyethylene glycol 3350 (MIRALAX) 17 gram packet Take 1 Packet by mouth once daily. Dissolve dose in 4 - 8 ounces of liquid and take as directed. 28 Packet 11 pramipexole (MIRAPEX) 0.5 mg tablet Take 0.5 tablets by mouth daily at bedtime. 30 tablet 5 insulin needles, DISPOSABLE, (PEN NEEDLE) 31 gauge x 5/16" Use one needle per dose. 4 times daily (basaglar and humalog). 120 Each 11 Blood-Glucose Meter (FREESTYLE LITE METER) monitoring kit Used three times daily to check blood sugar. 250.00 1 Each 0 insulin lispro (HUMALOG KWIKPEN) 100 unit/mL Sig: Administer Lispro insulin per scale AC breakfast morning, AC lunch, AC dinner as follows with glucose 150-199 2u, 200-249 3u, 250-299 5u, 300-350 8u,350-399 11u, 400- 449 14u, 450 and above go to ER. 1 Each 5 haloperidol (HALDOL) 2 mg tablet Take by mouth. ferrous sulfate 325 mg (65 mg iron) tablet Take 1 tablet by mouth two times a day with meals. 120 tablet 5 metFORMIN ER (GLUCOPHAGE XR) 500 mg 24 hr tablet Take 2 tablets by mouth two times a day before meals. 360 tablet 3 sodium chloride-aloe vera (AYR SALINE GEL) nasal spray Use 1 mL in the nose two times a day. 88 mL 1 Artificial Tear, Hypromellose, (SYSTANE GEL) 0.3 % gel Use 1 Drop in both eyes daily at bedtime. 10mL 5 guaiFENesin (MUCINEX) 600 mg 12 hr tablet Take 2 tablets by mouth two times a day. 24 tablet 0 INVEGA SUSTENNA 156 mg/mL syrg injection clonazePAM (KLONOPIN) 0.5 mg tablet Take 0.5 mg by mouth three times daily as needed. Blood Pressure Monitor 1 Each twice daily. [...] daily. Per Dr. Ramirez 1 Each 5 No current facility-administered medications for this visit. [...] does not have insomnia. Physical Examination: Vitals:BP 126/79 Pulse 104 Wt 186 lb 6.4 oz (84.6kg) SpO2 92% LMP 09/12/2017 BP w/Orthostatic Vitals Date and Time Orthostatic BP Orthostatic Pulse BP Pulse BP Position BP Site BP Cuff Size 09/20/24 1251 -- -- 126/79 104 -- -- -- Last 2 Encounter Wt Readings: Date: Wt: 09/20/2024 84.6 kg (186 lb 6.4 oz) 08/24/2024 85.3 kg (188 lb) Physical Exam Constitutional: General: She is [...] No tenderness. Abdominal: General: Abdomen is flat. Musculoskeletal: General: Normal range of motion. Cervical back: Normal range of motion and neck supple. Skin: General: Skin is warm and dry. Neurological: Mental Status: She is alert and oriented to person, place, and time. Psychiatric: Mood and Affect: Mood normal. Thought Content: Thought content normal. Pertinent Labs: CBC: Hemoglobin (g/dL) Date Value 03/30/2024 14.5 07/19/2021 14.5 Hematocrit (%) Date Value 03/30/2024 45.3 07/19/2021 43.0 WBC (k/uL) Date Value 03/30/2024 8.73 07/19/2021 9.57 Platelet Count (k/uL) Date Value 03/30/2024 154 07/19/2021 227 BMP: Glucose (mg/dL) Date Value 03/02/2024 131 07/19/2021 109 Potassium (mmol/L) Date Value 03/02/2024 4.6 07/19/2021 4.2 Sodium (mmol/L) Date Value 03/02/2024 137 07/19/2021 133 Chloride (mmol/L) Date Value 03/02/2024 98 07/19/2021 99 CO2 (mmol/L) Date Value 03/02/2024 26 07/19/2021 24 Creatinine (mg/dL) Date Value 03/02/2024 0.51 07/19/2021 0.52 BUN (mg/dL) Date Value 03/02/2024 19 07/19/2021 8 Anion Gap (mmol/L) Date Value 03/02/2024 13 07/19/2021 10 Calcium (mg/dL) Date Value 07/19/2021 9.3 Calcium, Total (mg/dL) Date Value 03/02/2024 10.0 INR: Lipid Profile: Total Cholesterol, Nonfasting Date Value Ref Range Status 11/05/2023 149 <200 mg/dL Final Comment: <200 mg/dL, Desirable 200-239 mg/dL, Borderline high >239 mg/dL, High HDL Cholesterol, Nonfasting Date Value Ref Range Status 11/05/2023 45 >39 mg/dL Final Comment: 40-59 mg/dL, Acceptable >59 mg/dL, High: Negative risk factor for coronary heart disease <40 mg/dL, Low: Positive risk factor for coronary heart disease LDL Cholesterol, Nonfasting Date Value Ref Range Status 11/05/2023 60 <100 mg/dL Final Comment: <100 mg/dL, Optimal 100-129 mg/dL, Near optimal/above optimal 130-159 mg/dL, Borderline high 160-189 mg/dL, High >189 mg/dL, Very high Secondary prevention optimal LDL Cholesterol levels are recommended to be < 70 mg/dL Triglycerides, Nonfasting Date Value Ref Range Status 11/05/2023 221 (H) <150 mg/dL Final Comment: <150 mg/dL, Normal 150-199 mg/dL, Borderline high 200-499 mg/dL, High >499 mg/dL, Very high Hemoglobin A1C: No results found for: "HGBA1C" TSH: No results found for: "TSHREFL" Prior Cardiac Testing EKG Assessment and Plan: 58 years old with supraventricular tachycardia and sinus tachycardia ASSESSMENT/PLAN: 1. Primary hypertension - ICD9: 401.9, ICD10: I10 (primary diagnosis) - Controlled - Continue current medications - Recommend home blood pressure monitoring, to bring results to next visit - Encouraged sodium restriction, DASH or Mediterranean diet - Recommend regular aerobic exercise - ECG COMPLETE 2. Pure hypercholesterolemia - ICD9: 272.0, ICD10: E78.00 Because of leg weakness and muscle fatigue she is instructed to stop her statin therapy for 2 weeksto see if there is any improvement - ECG COMPLETE 3. SVT (supraventricular tachycardia) (HCC) - ICD9: 427.89, ICD10: I47.10 Beta-blockers - ECG COMPLETE 4. Tachycardia - ICD9: 785.0, ICD10: R00.0 Controlled with beta-blockers - ECG COMPLETE Fuentes Renee MD Follow up plannin months Electronically signed by Fuentes Renee MD on September 20, 2024, 1:04 PM The above note was partially created using a dictation recognition software. A reasonable attempt has been made to correct any errors. documented in this encounter[facility]11-[facility]24 Instructions* Patient Instructions* Radha Batista APRN.CNP - 09/08/2024 9:45 AM EST Start the gabapentin. Take nightly X 3 days, then increase to twice daily. Recheck in 3-4 weeks. documented in this encounter[facility]11-[facility] History of Present illness Narrative* Radha Batista APRN.CNP - 09/08/2024 9:17 AM EST This is a 58 year old female who presents today with: Patient presents with: Recheck: 2 week follow up HISTORY OF PRESENT ILLNESS: Brenda Le is a 58 year old female. Patient presents with: Recheck: 2 week follow up Pt presents today for 2 week follow-up. She was in two weeks ago and had some respiratory symptoms. She was treated with doxy and medrol for exacerbation of COPD. Refers that her breathing is improved. She does still see Dr. Ramirez for the COPD. She does have continue maintenance inhaler. Doesn't need to use the albuterol very often -- uses it a couple of times a day, but "sometimes noteven that." Continues with lower leg pain. Below knees. She hasn't been wearing stockings. Unsure if they feel better without the stockings. Pain, aches. Restless legs. Has tried nsaids. Being on legs make it worse. PAST MEDICAL HISTORY: PAST MEDICAL HISTORY Diagnosis Date Bilateral pneumonia 07/23/2018 Admit [facility]: pneumococcal suspected, neg culture. 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 MEDICATIONS Current Outpatient Medications Medication Sig insulin glargine (LANTUS SOLOSTAR U-100 INSULIN) 100 unit/mL (3 mL) Inject 60 Units subcutaneously daily at bedtime. benztropine (COGENTIN) 0.5 mg tablet Take 0.5 mg by mouth two times a day. albuterol (PROVENTIL) 2.5 mg /3 mL (0.083 %) nebulizer solution Use 2.5 mg via nebulizer every 4 hours as needed. Every morning albuterol HFA (VENTOLIN HFA) 90 mcg/actuation inhaler Inhale 2 Puffs as instructed every 4 hours asneeded for wheezing/shortness of breath. Menthol (COUGH DROPS) 5.8 mg Use 1 Lozenge as instructed every 2 hours as needed. Sugar-Free furosemide (LASIX) 20 mg tablet Take 1 tablet by mouth once daily. atorvastatin (LIPITOR) 10 mg tablet Take 1 tablet by mouth daily at bedtime. For cholesterol. Comp Stocking,Knee,Regular,Med misc Patient to be measured for correct size. 20- 30 mmHg Dx: I50.31 potassium chloride ER (KLOR-CON) 20 mEq tablet Take 1 tablet by mouth once daily. omega-3 fatty acids (FISH OIL CONCENTRATE) 1,000 mg cap Take 1 capsule by mouth once daily. nabumetone (RELAFEN) 500 mg tablet Take 1 tablet by mouth once daily. TAKE WITH FOOD Cholecalciferol, Vitamin D3, 25 mcg (1,000 unit) cap Take 1 capsule by mouth once daily. aspirin, enteric coated (ASPIRIN, ENTERIC COATED) 325 mg EC tablet Take 1 tablet by mouth once daily. Take with food. docusate sodium (COLACE) 100 mg capsule Take 1 capsule by mouth two times a day. empagliflozin (JARDIANCE) 10 mg tablet Take 1 tablet by mouth daily with breakfast. metoprolol succinate ER (TOPROL XL) 25 mg 24 hr tablet take 1 tablet by mouth every evening Lancets Test blood sugar(s) 4 times daily with sliding scale coverage. Dx: Other DM Code E11.21 Insulin: Yes blood sugar diagnostic (BLOOD GLUCOSE TEST) test strip testing QIDtimes daily and sliding scale coverage. Insulin yes Use as instructed DXE11.21 omeprazole (PRILOSEC) 20 mg capsule Take 1 capsule by mouth daily before breakfast. 1/2 hr before meal. metroNIDAZOLE (METROGEL) 1 % Topical Gel Apply 1 application to affected area once daily. Location:face metroNIDAZOLE (METROGEL) 0.75 % Topical Gel Apply to affected area two times a day. polyethylene glycol 3350 (MIRALAX) 17 gram packet Take 1 Packet by mouth once daily. Dissolve dose in 4 - 8 ounces of liquid and take as directed. pramipexole (MIRAPEX) 0.5 mg tablet Take 0.5 tablets by mouth daily at bedtime. insulin needles, DISPOSABLE, (PEN NEEDLE) 31 gauge x 5/16" Use one needle per dose. 4 times daily (basaglar and humalog). Blood-Glucose Meter (FREESTYLE LITE METER) monitoring kit Used three times daily to check blood sugar. 250.00 insulin lispro (HUMALOG KWIKPEN) 100 unit/mL Sig: Administer Lispro insulin per scale AC breakfast morning, AC lunch, AC dinner as follows with glucose 150-199 2u, 200-249 3u, 250-299 5u, 300-350 8u,350-399 11u, 400- 449 14u, 450 and above go to ER. haloperidol (HALDOL) 2 mg tablet Take by mouth. ferrous sulfate 325 mg (65 mg iron) tablet Take 1 tablet by mouth two times a day with meals. metFORMIN ER (GLUCOPHAGE XR) 500 mg 24 hr tablet Take 2 tablets by mouth two times a day before meals. sodium chloride-aloe vera (AYR SALINE GEL) nasal spray Use 1 mL in the nose two times a day. Artificial Tear, Hypromellose, (SYSTANE GEL) 0.3 % gel Use 1 Drop in both eyes daily at bedtime. guaiFENesin (MUCINEX) 600 mg 12 hr tablet Take 2 tablets by mouth two times a day. INVEGA SUSTENNA 156 mg/mL syrg injection clonazePAM (KLONOPIN) 0.5 mg tablet Take 0.5 mg by mouth three times daily as needed. Blood Pressure Monitor 1 Each twice daily. [...] as instructed once daily. Per Dr. Ramirez No current facility-administered medications for this visit. FAMILY HISTORY Problem Relation Age of Onset Psychiatry Mother depression Psychiatry Sister deperssion other (lung cancer) Paternal Grandfather Social History Tobacco Use Smoking status: Former Current packs/day: 0.00 Average packs/day: 2.0 packs/day for 20.0 years (40.0 ttl pk-yrs) Types: Cigarettes Start date: 01/11/1994 Quit date: 01/11/2014 Years since quittin.6 Smokeless tobacco: Never Vaping Use Vaping status: Never Used Substance Use Topics Alcohol use: No Drug use: No Comment: marijunan- Teen yrs, but not now EXAM: BP 122/60 Pulse 94 Resp 16 LMP 09/12/2017 SpO2 94% PHYSICAL EXAM: General Appearance: Well appearing, alert, in no acute distress, well-hydrated, well nourished.. Skin: Skin color, texture, turgor normal, no suspicious rashes or lesions. Head: Normocephalic, no masses, lesions, tenderness or abnormalities. Eyes: Anicteric sclera. Extraocular movements are intact. . Lungs: Lungs clear to auscultation. No wheezing, rhonchi, rales.. Heart: RRR without murmur, gallop, or rubs. No ectopy. Extremities: No deformities, edema, skin discoloration, clubbing or cyanosis. Good capillary refill. . Neurologic: Gait normal. ASSESSMENT/PLAN: 1. Chronic obstructive pulmonary disease, unspecified COPD type (HCC) - ICD9: 496, ICD10: J44.9 (primary diagnosis) Exacerbation improved. Symptoms controlled. Continue per pulmonology. 2. Leg pain, bilateral - ICD9: 729.5, ICD10: M79.604, M79.605 Continues w/ BLE pain. Will start small dose of gabapentin and eval effectiveness. Discussed potential side effects of ordered medications. Patient voices understanding. 3. Encounter for immunization - ICD9: V03.89, ICD10: Z23 - PNEUMOCOCCAL VACCINE, 20 VALENT (PREVNAR 20) Discussed treatment plan and patient voices understanding. Patient's questions answered appropriately. Medications and potential side effects were discussed and patient voices understanding. Return to the office as scheduled or as needed for worsening/no improvement. Radha Batista APRN.TANNING [employer] ATTENDANT documented in this encounter[facility]11-[facility] Telephone encounter Note * Telephone Encounter - Cristal White RN - 08/31/2024 9:39 AM EST Reina mattson [facility] reports the Basaglar is no longer on the approved medication list through the Pts insurance. She states she did already run it through CoverMyMeds if the provider wanted to send it in. The medication on the Pts approved medication list are Toujeo Max or Solostar, or Lantus units-100. The provider could change to any of these if they want to. The patient has been identified by name and date of : Yes Caregiver verified no other encounters exist for this prescription request: Yes Caregiver confirmed with patient/requestor that no other refills are due, in the near future, with this provider at this time: Yes The last office visit in the department: 08/24/2024 Does the patient have a future office visit with this provider/department: Yes 09/07/2024 Requested Prescriptions Pending Prescriptions Disp Refills insulin glargine (BASAGLAR KWIKPEN U-100 INSULIN) 100 unit/mL (3 mL) 18 mL 5 Sig: Inject 60 Units subcutaneously once daily. At 4:00 PM Cristal White RN August 31, 2024 9:42 AM [facility] Miscellaneous Notes* Telephone Encounter - Cristal White RN - 08/31/2024 9:39 AM EST Reina mattson [facility] reports the Basaglar is no longer on the approved medication list through the Pts insurance. She states she did already run it through CoverMyMeds if the provider wanted to send it in. The medication on the Pts approved medication list are Toujeo Max or Solostar, or Lantus units-100. The provider could change to any of these if they want to. The patient has been identified by name and date of : Yes Caregiver verified no other encounters exist for this prescription request: Yes Caregiver confirmed with patient/requestor that no other refills are due, in the near future, with this provider at this time: Yes The last office visit in the department: 08/24/2024 Does the patient have a future office visit with this provider/department: Yes 09/07/2024 Requested Prescriptions Pending Prescriptions Disp Refills insulin glargine (BASAGLAR KWIKPEN U-100 INSULIN) 100 unit/mL (3 mL) 18 mL 5 Sig: Inject 60 Units subcutaneously once daily. At 4:00 PM Cristal White RN August 31, 2024 9:42 AM documented in this encounterEast [facility]11-12-2024 Note* Addendum Note - Shelia Salmon APRN.CNP - 08/24/2024 3:52 PM ESTAddended by: SHELIA SALMON on: 08/24/2024 03:52 PM Modules accepted: Orders [facility]-12[facility] Miscellaneous Notes* Addendum Note - Shelia Salmon APRN.CNP - 08/24/2024 3:52 PM ESTAddended by: SHELIA SALMON on: 08/24/2024 03:52 PM Modules accepted: Orders documented in this encounterEast [facility]11-12-2024 Instructions* Patient Instructions* Shelia Salmon APRN.CNP - 08/24/2024 3:39 PM EST 1) Doxycyline 100 mg 2 x day for 10 days (take with food) 2) Hold iron (Ferex) while on doxycyline 3) Medrol taper 4) Follow up in 10-14 days documented in this encounterEast [facility]11-12-[facility] History of Present illness Narrative* Shelia Salmon APRN.CNP - 08/24/2024 3:24 PM EST This is a 58 year old female who presents today with: Patient presents with: Acute Visit HISTORY OF PRESENT ILLNESS: Brenda Le is a 58 year old female. Patient presents with: Acute Visit Sick for a week. Dry cough initially. Now getting some stuff up. Clear drainage Nasal stuffy Had sore throat Feels very tired- sleeping a lot during the day Lives in a long term, whole house is sick Feels hot Appetite comes and goes Wheezing at night- uses albuterol Red rash in groin that itches and minaya PAST MEDICAL HISTORY: PAST MEDICAL HISTORY Diagnosis Date Bilateral pneumonia 07/23/2018 Admit [facility]: pneumococcal suspected, neg culture. 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 MEDICATIONS Current Outpatient Medications Medication Sig benztropine (COGENTIN) 0.5 mg tablet Take 0.5 mg by mouth two times a day. albuterol (PROVENTIL) 2.5 mg /3 mL (0.083 %) nebulizer solution Use 2.5 mg via nebulizer every 4 hours as needed. Every morning albuterol HFA (VENTOLIN HFA) 90 mcg/actuation inhaler Inhale 2 Puffs as instructed every 4 hours asneeded for wheezing/shortness of breath. Menthol (COUGH DROPS) 5.8 mg Use 1 Lozenge as instructed every 2 hours as needed. Sugar-Free furosemide (LASIX) 20 mg tablet Take 1 tablet by mouth once daily. atorvastatin (LIPITOR) 10 mg tablet Take 1 tablet by mouth daily at bedtime. For cholesterol. Comp Stocking,Knee,Regular,Med misc Patient to be measured for correct size. 20- 30 mmHg Dx: I50.31 potassium chloride ER (KLOR-CON) 20 mEq tablet Take 1 tablet by mouth once daily. omega-3 fatty acids (FISH OIL CONCENTRATE) 1,000 mg cap Take 1 capsule by mouth once daily. nabumetone (RELAFEN) 500 mg tablet Take 1 tablet by mouth once daily. TAKE WITH FOOD Cholecalciferol, Vitamin D3, 25 mcg (1,000 unit) cap Take 1 capsule by mouth once daily. aspirin, enteric coated (ASPIRIN, ENTERIC COATED) 325 mg EC tablet Take 1 tablet by mouth once daily. Take with food. docusate sodium (COLACE) 100 mg capsule Take 1 capsule by mouth two times a day. empagliflozin (JARDIANCE) 10 mg tablet Take 1 tablet by mouth daily with breakfast. metoprolol succinate ER (TOPROL XL) 25 mg 24 hr tablet take 1 tablet by mouth every evening Lancets Test blood sugar(s) 4 times daily with sliding scale coverage. Dx: Other DM Code E11.21 Insulin: Yes blood sugar diagnostic (BLOOD GLUCOSE TEST) test strip testing QIDtimes daily and sliding scale coverage. Insulin yes Use as instructed DXE11.21 omeprazole (PRILOSEC) 20 mg capsule Take 1 capsule by mouth daily before breakfast. 1/2 hr before meal. metroNIDAZOLE (METROGEL) 1 % Topical Gel Apply 1 application to affected area once daily. Location:face metroNIDAZOLE (METROGEL) 0.75 % Topical Gel Apply to affected area two times a day. polyethylene glycol 3350 (MIRALAX) 17 gram packet Take 1 Packet by mouth once daily. Dissolve dose in 4 - 8 ounces of liquid and take as directed. pramipexole (MIRAPEX) 0.5 mg tablet Take 0.5 tablets by mouth daily at bedtime. insulin needles, DISPOSABLE, (PEN NEEDLE) 31 gauge x 5/16" Use one needle per dose. 4 times daily (basaglar and humalog). Blood-Glucose Meter (FREESTYLE LITE METER) monitoring kit Used three times daily to check blood sugar. 250.00 insulin glargine (BASAGLAR KWIKPEN U-100 INSULIN) 100 unit/mL (3 mL) Inject 60 Units subcutaneouslyonce daily. At 4:00 PM insulin lispro (HUMALOG KWIKPEN) 100 unit/mL Sig: Administer Lispro insulin per scale AC breakfast morning, AC lunch, AC dinner as follows with glucose 150-199 2u, 200-249 3u, 250-299 5u, 300-350 8u,350-399 11u, 400- 449 14u, 450 and above go to ER. haloperidol (HALDOL) 2 mg tablet Take by mouth. ferrous sulfate 325 mg (65 mg iron) tablet Take 1 tablet by mouth two times a day with meals. metFORMIN ER (GLUCOPHAGE XR) 500 mg 24 hr tablet Take 2 tablets by mouth two times a day before meals. sodium chloride-aloe vera (AYR SALINE GEL) nasal spray Use 1 mL in the nose two times a day. Artificial Tear, Hypromellose, (SYSTANE GEL) 0.3 % gel Use 1 Drop in both eyes daily at bedtime. guaiFENesin (MUCINEX) 600 mg 12 hr tablet Take 2 tablets by mouth two times a day. INVEGA SUSTENNA 156 mg/mL syrg injection clonazePAM (KLONOPIN) 0.5 mg tablet Take 0.5 mg by mouth three times daily as needed. Blood Pressure Monitor 1 Each twice daily. cloZAPine (CLOZARIL) 100 mg tablet Take by mouth. Takes 25mg in the morning and 500mg at bedtime umeclidinium (INCRUSE ELLIPTA) 62.5 mcg/actuation inhaler Inhale 1 Puff as instructed once daily. Inhale one puff once daily. DO NOT CLICK OPEN UNTIL READY FOR DOSE miconazole nitrate (MONISTAT) 200 mg vaginal suppository Use 1 Suppository vaginally daily at bedtime. For 7 nights. fluticasone (FLONASE) 50 mcg/actuation nasal spray Use 2 Sprays in each nostril once daily. Rinse mouth after use. acetaminophen (TYLENOL EXTRA STRENGTH) 500 mg tablet Take 1-2 tablets by mouth every 8 hours as needed for pain. fluticasone-vilanterol (BREO ELLIPTA) 100-25 mcg/dose inhaler Inhale 1 Inhalation as instructed once daily. Per Dr. Ramirez COMPOUNDED PRESCRIPTION BIPAP of 09/[address] on [address] Dr[address] Ramirez (Patient not taking: Reported on08/24/2024) No current facility-administered medications for this visit. FAMILY HISTORY Problem Relation Age of Onset Psychiatry Mother depression Psychiatry Sister deperssion other (lung cancer) Paternal Grandfather Social History Tobacco Use Smoking status: Former Current packs/day: 0.00 Average packs/day: 2.0 packs/day for 20.0 years (40.0 ttl pk-yrs) Types: Cigarettes Start date: 01/11/1994 Quit date: 01/11/2014 Years since quittin.6 Smokeless tobacco: Never Vaping Use Vaping status: Never Used Substance Use Topics Alcohol use: No Drug use: No Comment: marijunan- Teen yrs, but not now EXAM: BP 132/64 Pulse 109 Temp 36.4 C (97.5 F) (Temporal Artery) Resp 24 Wt 85.3 kg (188 lb) LMP 09/12/2017 SpO2 94% BMI 34.82 kg/m PHYSICAL EXAM: Physical Exam Vitals reviewed. Constitutional: Appearance: Normal appearance. She is obese. HENT: Right Ear: Ear canal and external ear normal. There is no impacted cerumen. Left Ear: Tympanic membrane, ear canal and external ear normal. There is no impacted cerumen. Ears: Comments: Some wax in right ear- not impacted Mouth/Throat: Mouth: Mucous membranes are moist. Pharynx: Oropharynx is clear. Posterior oropharyngeal erythema present. No oropharyngeal exudate. Comments: Slightly red Cardiovascular: Rate and Rhythm: Normal rate and regular rhythm. Pulses: Normal pulses. Heart sounds: Normal heart sounds. Pulmonary: Effort: Pulmonary effort is normal. Breath sounds: Normal breath sounds. Comments: Negative egophony Abdominal: General: Bowel sounds are normal. Palpations: Abdomen is soft. Tenderness: There is no abdominal tenderness. Musculoskeletal: General: Normal range of motion. Comments: Moves all ext. Skin: General: Skin is dry. Comments: Cool & dry- some red patches on face from mask [place] rash in groin with cracks in seam Neurological: Mental Status: She is alert. LABS: ASSESSMENT/PLAN: 1. LIDA (obstructive sleep apnea) - ICD9: 327.23, ICD10: G47.33 (primary diagnosis) Uses BiPAP - DME SUPPLY OR ACCESSORY, NOS 2. Acute exacerbation of chronic obstructive pulmonary disease (COPD) (HCC) - ICD9: 491.21, ICD10: J44.1 - Wheezing at night - Doxycycline 2 x day for 10 days - Medrol taper 3. Tinea cruris - ICD9: 110.3, ICD10: B35.6 - Treat with terbinafine cream twice a day until rash resolves and then another week Discussed treatment plan and patient voices understanding. Patient's questions answered appropriately. Medications and potential side effects were discussed and patient voices understanding. Return to the office as scheduled or as needed for worsening/no improvement. Shelia Salmon APRN.CNP [facility] Tele[facility] encounter Note * Telephone Encounter - Radha Batista APRN.CNP - 08/20/2024 1:17 PM EST Script sent. Radha Batista APRN.CNP [facility] Miscellaneous Notes* Telephone Encounter - Radha Batista APRN.CNP - 08/20/2024 1:17 PM EST Script sent. Radha Batista APRN.CNP * Telephone Encounter - Carla Ayon LPN - 08/20/2024 8:19 AM EST Dorie from [facility] calls requesting a script for pt for a generic lancing device. The lancets go into this. Script pended. [facility] Telephone encounter Note * Telephone Encounter - Carla Ayon LPN - 08/20/2024 8:19 AM EST Dorie from [facility] calls requesting a script for pt for a generic lancing device. The lancets go into this. Script pended. [facility]11-06-[facility] Telephone encounter Note* Telephone Encounter - Maye Ferrer LPN - 08/18/2024 1:43 PM EST Phoned spoke to Breanna and went over notes from Christian Batista CREDIT CHARGE AUTHORIZER with understanding. Aware rx sent to the pharmacy. [facility]11-06-[facility]24 Miscellaneous Notes* Telephone Encounter - Maye Ferrer LPN - 08/18/2024 1:43 PM EST Phoned spoke to Breanna and went over notes from Christian Batista CREDIT CHARGE AUTHORIZER with understanding. Aware rx sent to the pharmacy. * Telephone Encounter - Radha Batista APRN.CNP - 08/18/2024 12:46 PM EST Yes, she should have a rescue inhaler for as needed. Script sent. Radha Batista APRN.PAVITHRA * Telephone Encounter - Adrianne Saldivar LPN - 08/18/2024 9:22 AM EST Patient does have an albuterol inhaler there but is . She is using her daily inhaler as ordered. * Telephone Encounter - Edilia Monroe - 08/18/2024 8:22 AM EST [facility] Shelter Caregiver Caller Name: Breanna Call Back Number [phone] Reason for Call: Other Medication question Additional Information: Breanna is asking if Brenda should still have the Rescue inhaler Albuterol sulfate 90 mcg. If so, she would need it refilled at [facility] Please call Breanna back. documented [facility] Telephone encounter Note * Telephone Encounter - Radha Batista APRN.CNP - 08/18/2024 12:46 PM EST Yes, she should have a rescue inhaler for as needed. Script sent. Radha Batista APRN.TANNING SALON ATTENDANT [facility] Telephone encounter Note* Telephone Encounter - Adrianne Saldivar LPN - 08/18/2024 9:22 AM EST Patient does have an albuterol inhaler there but is . She is using her daily inhaler as ordered. [facility] Telephone encounter Note* Telephone Encounter - Edilia Monroe - 08/18/2024 8:22 AM EST [facility] Shelter Caregiver Caller Name: Breanna Call Back Number [phone] Reason for Call: Other Medication question Additional Information: Breanna is asking if Brenda should still have the Rescue inhaler Albuterol sulfate 90 mcg. If so, she would need it refilled at [facility] Please call Breanna back. [facility] Work Phone: 1(974) 304-975011-04-2024 Telephone encounter Note* Telephone Encounter - Frank Joya LPN - 08/16/2024 6:14 PM EST Breanna notified. She verbalized understanding. Frank Joya LPN [facility]11-04-2024 Miscellaneous Notes* Telephone Encounter - Frank Joya LPN - 08/16/2024 6:14 PM EST Breanna notified. She verbalized understanding. Frank Joya LPN * Telephone Encounter - Radha Batista APRN.CNP - 08/16/2024 6:07 PM EST Script sent. Radha Batista APRN.CNP * Telephone Encounter - Edilia Monroe - 08/16/2024 4:21 PM EST [facility] Caller Name: Breanna Call Back Number [phone] Reason for Call: Order for Cough Drops Additional Information: Breanna is calling because the long term is unable to give the residents any medication without an order and they would like to provide her with cough drops as necessary. They are asking if it be generic in type and if not a [place] type product. [facility]. documented in this encounter[facility]11-[facility] Telephone encounter Note * Telephone Encounter - Radha Batista APRN.CNP - 08/16/2024 6:07 PM EST Script sent. Radha Batista APRN.PAVITHRA [facility]11-04-20[facility] Telephone encounter Note* Telephone Encounter - Edilia Monroe - 08/16/2024 4:21 PM EST [facility] Caller Name: Breanna Call Back Number [phone] Reason for Call: Order for Cough Drops Additional Information: Breanna is calling because the long term is unable to give the residents any medication without an order and they would like to provide her with cough drops as necessary. They are asking if it be generic in type and if not a [place] type product. [facility]. [facility] Work Phone: [phone] Telephone encounter Note* Telephone Encounter - Shirley Romero RN - 08/06/2024 1:23 PM EDT The patient has been identified by name and date of : Yes Caregiver verified no other encounters exist for this prescription request: Yes Caregiver confirmed with patient/requestor that no other refills are due, in the near future, with this provider at this time: Yes The last office visit in the department: 07/06/2024 Does the patient have a future office visit with this provider/department: Yes 09/20/2024 Requested Prescriptions Pending Prescriptions Disp Refills furosemide (LASIX) 20 mg tablet 90 tablet 3 Sig: Take 1 tablet by mouth once daily. atorvastatin (LIPITOR) 10 mg tablet 30 tablet 5 Sig: Take 1 tablet by mouth daily at bedtime. For cholesterol. Shirley Romero RN [facility]10-25-2024 Miscellaneous Notes* Telephone Encounter - Shirley Romero RN - 08/06/2024 1:23 PM EDT The patient has been identified by name and date of : Yes Caregiver verified no other encounters exist for this prescription request: Yes Caregiver confirmed with patient/requestor that no other refills are due, in the near future, with this provider at this time: Yes The last office visit in the department: 07/06/2024 Does the patient have a future office visit with this provider/department: Yes 09/20/2024 Requested Prescriptions Pending Prescriptions Disp Refills furosemide (LASIX) 20 mg tablet 90 tablet 3 Sig: Take 1 tablet by mouth once daily. atorvastatin (LIPITOR) 10 mg tablet 30 tablet 5 Sig: Take 1 tablet by mouth daily at bedtime. For cholesterol. Shirley Romero RN documented in [facility]10-[facility] Telephone encounter Note * Telephone Encounter - Barbara Dickens RN - 07/31/2024 12:33 PM EDT Caregiver calling with request for update on BP Caregiver denies any new or worsening symptoms of which a provider is not aware: Yes. Current PB is 103/64. Denies dizziness or chest pain. Reviewed note with Jaime-caregiver regarding Dr. Jones's note. States understanding. GO TO THE EMERGENCY ROOM OR CALL 911 IF: * You develop any new symptoms * Your condition worsens * You are concerned or anxious about your condition for any other reason. If you have any questions, you can call Nurse bone crusher back. [facility] Miscellaneous Notes* Telephone Encounter - Barbara Dickens RN - 07/31/2024 12:33 PM EDT Caregiver calling with request for update on BP Caregiver denies any new or worsening symptoms of which a provider is not aware: Yes. Current PB is 103/64. Denies dizziness or chest pain. Reviewed note with Jaime-caregiver regarding Dr. Jones's note. States understanding. GO TO THE EMERGENCY ROOM OR CALL 911 IF: * You develop any new symptoms * Your condition worsens * You are concerned or anxious about your condition for any other reason. If you have any questions, you can call Nurse bone crusher back. documented in [facility] encounter[facility]10-[facility]-2024 Telephone encounter Note * Telephone Encounter - Joselyn Hendricks MA - 07/31/2024 11:31 AM EDT [place], caregiver informed and given instruction. She verbalized understanding. Joselyn Hendricks MA [facility]-19-2024 Miscellaneous Notes* Telephone Encounter - Joselyn Hendricks MA - 07/31/2024 11:31 AM EDT Jaime, caregiver informed and given instruction. She verbalized understanding. Joselyn Hendricks MA * Telephone Encounter - Aleksandar Jones MD - 07/31/2024 11:28 AM EDT See if can monitor bp and heart rate at least twice today. 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 Found empty packages where patient had taken ASA 81 mg , Amlodipine 5 mg,Metformin ER 500 mg, Metoprolol 25 mg, Famotidine 20 mg, Duloxetine 50 mg and 30 mg, Benztropine 1 mg. They called poison control and was told to call PCP. Patient is not having any issues or problems right now. She said patient had taken her own medications also this morning. Please advise documented [facility] encounter[facility]10-[facility]-2024 Telephone encounter Note * Telephone Encounter - Aleksandar Jones MD - 07/31/2024 11:28 AM EDT See if can monitor bp and heart rate at least twice today. 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 Found empty packages where patient had taken ASA 81 mg , Amlodipine 5 mg,Metformin ER 500 mg, Metoprolol 25 mg, Famotidine 20 mg, Duloxetine 50 mg and 30 mg, Benztropine 1 mg. They called poison control and was told to call PCP. Patient is not having any issues or problems right now. She said patient had taken her own medications also this morning. Please advise [facility] Telephone encounter Note* Telephone Encounter - Malcolm Abreu, JAH - 07/31/2024 10:54 AM EDT Caregiver calling with request to notify PCP that patient may have taken another patient's pills including: Aspirin 81 mg, amlodipine 5 mg, duloxetine 50 mg & 30 mg, metformin 500 mg, benztropin 1 mg, metoprolol 25 mg and famotidine 20 mg. They called poison control who advised them to call PCP. Caregiver denies any new or worsening symptoms of which a provider is not aware:Yes. RACHAEL Villavicencio in Dr. Jones's offce was notified of above and conferenced to caller. [facility] Miscellaneous Notes* Telephone Encounter - Malcolm Abreu, RN - 07/31/2024 10:54 AM EDT Caregiver calling with request to notify PCP that patient may have taken another patient's pills including: Aspirin 81 mg, amlodipine 5 mg, duloxetine 50 mg & 30 mg, metformin 500 mg, benztropin 1 mg, metoprolol 25 mg and famotidine 20 mg. They called poison control who advised them to call PCP. Caregiver denies any new or worsening symptoms of which a provider is not aware:Yes. RACHAEL Villavicencio in Dr. Jones's offce was notified of above and conferenced to caller. documented in [facility] encounter[facility]10-[facility]-2024 Telephone encounter Note * Telephone Encounter - Petrona Jaimes RN - 07/29/2024 2:13 PM EDT Breanna, caregiver at [facility] calling with request for script for new pair of compression stockings. Pended per previous order. Petrona Jaimes RN [facility]10-[facility] Miscellaneous Notes* Telephone Encounter - Petrona Jaimes RN - 07/29/2024 2:13 PM EDT Breanna, caregiver at [facility] calling with request for script for new pair of compression stockings. Pended per previous order. Petrona Jaimes RN documented in this encounter[facility]10-[facility] of Present illness Narrative* Adriano Menezes APRN.TANNING SALON ATTENDANT - 07/23/2024 9:09 AM EDT Subjective HPI Nontoxic-appearing female presents urgent care accompanied by staff member. Chief complaint eye pain. Duration of symptoms 1 week. Associated symptoms right eye pain. Presents today due to pain getting worse. Describes pain as 5-6 out of 10. Had blurred vision upon arising. Does have a URI. The symptoms are improving. No eye trauma flashlight floaters. Does not wear contacts. Past medical historyprescription medications allergies reviewed. .Patient presents with: Eye Problem: Left eye pain x 1 week, redness States she has had a cold for a few days but no other changes PAST MEDICAL HISTORY Diagnosis Date Bilateral pneumonia 07/23/2018 Admit [facility]: pneumococcal suspected, neg culture. + rhinovirus Constipation COPD (chronic obstructive pulmonary disease) (HCC) Diabetes 1.5, managed as type 2 ([facility]) found at [facility], pt was on metformin for a [...] ALLERGIES Patient has no known allergies. MEDICATIONS potassium chloride ER (KLOR-CON) 20 mEq tablet Take 1 tablet by mouth once daily. omega-3 fatty acids (FISH OIL CONCENTRATE) 1,000 mg cap Take 1 capsule by mouth once daily. nabumetone (RELAFEN) 500 mg tablet Take 1 tablet by mouth once daily. TAKE WITH FOOD Cholecalciferol, Vitamin D3, 25 mcg (1,000 unit) cap Take 1 capsule by mouth once daily. aspirin, enteric coated (ASPIRIN, ENTERIC COATED) 325 mg EC tablet Take 1 tablet by mouth once daily. Take with food. docusate sodium (COLACE) 100 mg capsule Take 1 capsule by mouth two times a day. empagliflozin (JARDIANCE) 10 mg tablet Take 1 tablet by mouth daily with breakfast. metoprolol succinate ER (TOPROL XL) 25 mg 24 hr tablet take 1 tablet by mouth every evening Lancets Test blood sugar(s) 4 times daily with sliding scale coverage. Dx: Other DM Code E11.21 Insulin: Yes blood sugar diagnostic (BLOOD GLUCOSE TEST) test strip testing QIDtimes daily and sliding scale coverage. Insulin yes Use as instructed DXE11.21 omeprazole (PRILOSEC) 20 mg capsule Take 1 capsule by mouth daily before breakfast. 1/2 hr before meal. metroNIDAZOLE (METROGEL) 1 % Topical Gel Apply 1 application to affected area once daily. Location:face metroNIDAZOLE (METROGEL) 0.75 % Topical Gel Apply to affected area two times a day. polyethylene glycol 3350 (MIRALAX) 17 gram packet Take 1 Packet by mouth once daily. Dissolve dose in 4 - 8 ounces of liquid and take as directed. pramipexole (MIRAPEX) 0.5 mg tablet Take 0.5 tablets by mouth daily at bedtime. insulin needles, DISPOSABLE, (PEN NEEDLE) 31 gauge x 5/16" Use one needle per dose. 4 times daily (basaglar and humalog). Blood-Glucose Meter (FREESTYLE LITE METER) monitoring kit Used three times daily to check blood sugar. 250.00 insulin lispro (HUMALOG KWIKPEN) 100 unit/mL Sig: Administer Lispro insulin per scale AC breakfast morning, AC lunch, AC dinner as follows with glucose 150-199 2u, 200-249 3u, 250-299 5u, 300-350 8u,350-399 11u, 400- 449 14u, 450 and above go to ER. haloperidol (HALDOL) 2 mg tablet Take by mouth. atorvastatin (LIPITOR) 10 mg tablet Take 1 tablet by mouth daily at bedtime. For cholesterol. ferrous sulfate 325 mg (65 mg iron) tablet Take 1 tablet by mouth two times a day with meals. metFORMIN ER (GLUCOPHAGE XR) 500 mg 24 hr tablet Take 2 tablets by mouth two times a day before meals. sodium chloride-aloe vera (AYR SALINE GEL) nasal spray Use 1 mL in the nose two times a day. Artificial Tear, Hypromellose, (SYSTANE GEL) 0.3 % gel Use 1 Drop in both eyes daily at bedtime. furosemide (LASIX) 20 mg tablet Take 1 tablet by mouth once daily. miconazole nitrate (MONISTAT) 200 mg vaginal suppository Use 1 Suppository vaginally daily at bedtime. For 7 nights. guaiFENesin (MUCINEX) 600 mg 12 hr tablet Take 2 tablets by mouth two times a day. Comp Stocking,Knee,Regular,[facility] to be measured for correct size. 20- 30 mmHg Dx: I50.31 fluticasone (FLONASE) 50 mcg/actuation nasal spray Use 2 Sprays in each nostril once daily. Rinse mouth after use. INVEGA SUSTENNA 156 mg/mL syrg injection clonazePAM (KLONOPIN) 0.5 mg tablet Take 0.5 mg by mouth three times daily as needed. acetaminophen (TYLENOL EXTRA STRENGTH) 500 mg tablet Take 1-2 tablets by mouth every 8 hours as needed for pain. Blood Pressure Monitor 1 Each twice daily. [...] as instructed once daily. Per Dr. Ramirez COMPOUNDED PRESCRIPTION BIPAP of 09/[address] on [address] Ramirez insulin glargine (BASAGLAR KWIKPEN U-100 INSULIN) 100 unit/mL (3 mL) Inject 60 Units subcutaneouslyonce daily. At 4:00 PM FAMILY HISTORY Problem Relation Age of Onset Psychiatry Mother depression Psychiatry Sister deperssion other (lung cancer) Paternal Grandfather Social History Tobacco Use Smoking status: Former Current packs/day: 0.00 Average packs/day: 2.0 packs/day for 20.0 years (40.0 ttl pk-yrs) Types: Cigarettes Start date: 01/11/1994 Quit date: 01/11/2014 Years since quittin.5 Smokeless tobacco: Never Vaping Use Vaping status: Never Used Substance Use Topics Alcohol use: No Drug use: No Comment: marijunan- Teen yrs, but not now BP 100/67 Pulse 93 Temp 36.1 C (97 F) Resp 22 Wt 84 kg (185 lb 3 oz) LMP 09/12/2017 SpO2 96% BMI 34.30 kg/m Review of Systems Constitutional: Negative for chills, fever and malaise/fatigue. HENT: Positive for congestion. Negative for ear discharge, ear pain, sinus pain and sore throat. Eyes: Positive for pain. Negative for blurred vision, double vision, photophobia, discharge and redness. Respiratory: Positive for cough. Negative for hemoptysis, sputum production, shortness of breath, wheezing and stridor. Cardiovascular: Negative for chest pain. Gastrointestinal: Negative for abdominal pain, diarrhea, nausea and vomiting. Musculoskeletal: Negative for myalgias. Skin: Negative for itching and rash. Neurological: Negative for dizziness and headaches. Objective Physical Exam Constitutional: General: She is not in acute distress. Appearance: She is not diaphoretic. HENT: Head: Normocephalic. Jaw: No trismus, tenderness, swelling or pain on movement. Mouth/Throat: Mouth: Mucous membranes are moist. Pharynx: Oropharynx is clear. Uvula midline. No pharyngeal swelling, oropharyngeal exudate, posterior oropharyngeal erythema or uvula swelling. Eyes: General: Lids are normal. Lids are everted, no foreign bodies appreciated. Right eye: No discharge or hordeolum. Left eye: No discharge or hordeolum. Conjunctiva/sclera: Conjunctivae normal. Right eye: Right conjunctiva is not injected. No exudate or hemorrhage. Left eye: Left conjunctiva is not injected. No exudate or hemorrhage. Pupils: Pupils are equal, round, and reactive to light. Cardiovascular: Rate and Rhythm: Normal rate and regular rhythm. Heart sounds: Normal heart sounds. Pulmonary: Effort: Pulmonary effort is normal. No tachypnea, accessory muscle usage or respiratory distress. Breath sounds: Normal breath sounds. No stridor. No wheezing, rhonchi or rales. Abdominal: General: There is no distension. Palpations: Abdomen is soft. Tenderness: There is no abdominal tenderness. There is no guarding or rebound. Musculoskeletal: Cervical back: Normal range of motion and neck supple. No edema, erythema, rigidity or tenderness. No pain with movement. Normal range of motion. Lymphadenopathy: Cervical: No cervical adenopathy. Skin: General: Skin is warm and dry. Neurological: Mental Status: She is alert and oriented to person, place, and time. ASSESSMENT/PLAN: 1. Pain of right eye - ICD9: 379.91, ICD10: H57.11 Diagnosis eye pain. No evidence of conjunctivitis. Recommended following up with ophthalmology due to new onset blurred vision. Verbalized understanding agrees with plan of care. Adriano Menezes APRN.PAVITHRA documented [facility] Telephone encounter Note * Telephone Encounter - Tonie Escobar MA - 07/22/2024 10:41 AM EDT Breanna was notified Tonie Escobar MA [facility]10-10-2024 Miscellaneous Notes* Telephone Encounter - Tonie Escobar MA - 07/22/2024 10:41 AM EDT Breanna was notified Tonie Escobar MA * Telephone Encounter - Shelia Salmon APRN.CNP - 07/22/2024 10:27 AM EDT They do not need to check blood pressure every day. Maybe once a week would be good. As you alreadyknow, no fast acting insulin at bedtime. * Telephone Encounter - Eunice Spivey RN - 07/22/2024 10:14 AM EDT Breanna with the [facility] calls and states that they have been checking patient's blood pressure and weights every day for the past 6 months or greater. Facility is not sure why they are doing this. They do not have orders for this. Staff just writes down the numbers and keep it in a book. They have not done anything with BP or Weights. Breanna asking if they should be continuing to do this? Breanna also states that on 4 separate occasions patient was given Humalog insulin at bedtime which isnot in the orders. Patient was fine, however staff wanted provider aware of this. Please review and advise, Eunice Spivey RN documented in this encounterEast [facility]10-[facility]24 Telephone encounter Note * Telephone Encounter - Shelia Salmon APRN.CNP - 07/22/2024 10:27 AM EDT They do not need to check blood pressure every day. Maybe once a week would be good. As you alreadyknow, no fast acting insulin at bedtime. [facility] Telephone encounter Note* Telephone Encounter - Eunice Spivey RN - 07/22/2024 10:14 AM EDT Breanna with the [facility] calls and states that they have been checking patient's blood pressure and weights every day for the past 6 months or greater. Facility is not sure why they are doing this. They do not have orders for this. Staff just writes down the numbers and keep it in a book. They have not done anything with BP or Weights. Breanna asking if they should be continuing to do this? Breanna also states that on 4 separate occasions patient was given Humalog insulin at bedtime which isnot in the orders. Patient was fine, however staff wanted provider aware of this. Please review and advise, Eunice Spivey RN [facility]10-[facility] Telephone encounter Note* Telephone Encounter - Adrianne Saldivar LPN - 07/14/2024 2:20 PM EDT Clarified with staff at facility. [facility] Miscellaneous Notes* Telephone Encounter - Adrianne Saldivar LPN - 07/14/2024 2:20 PM EDT Clarified with staff at facility. * Telephone Encounter - Aleksandar Jones MD - 07/14/2024 12:34 PM EDT It should be as written in epic. No hs dose. * Telephone Encounter - Brandy Mark LPN - 07/14/2024 11:17 AM EDT Breanna with with [facility] calling regarding pt's insulin Humalog. They have on orders to be giving the above 4 times per day but it does not mention this to be takenat bedtime. [facility]. Last dose is at dinner. They are questioning if pt needs to be taking this at bedtime and if so what is the sliding scale to go along with this. Please advise Breanna. Brandy Mark LPN documented in this encounterEast [facility]10-02-2024 Telephone encounter Note * Telephone Encounter - Aleksandar Jones MD - 07/14/2024 12:34 PM EDT It should be as written in [facility]. No hs dose. [facility] Telephone encounter Note* Telephone Encounter - Brandy Mark LPN - 07/14/2024 11:17 AM EDT Breanna with with [facility] calling regarding pt's insulin Humalog. They have on orders to be giving the above 4 times per day but it does not mention this to be takenat bedtime. This is not on the prescription in [facility]. Last dose is at dinner. They are questioning if pt needs to be taking this at bedtime and if so what is the sliding scale to go along with this. Please advise Breanna. Brandy Mark LPN [facility] Telephone encounter Note* Telephone Encounter - Angi Ordonez LPN - 07/09/2024 8:49 AM EDT Prescription Refill Information The patient has been identified by name and date of : Yes Caregiver verified no other encounters exist for this prescription request: Yes Caregiver confirmed with patient/requestor that no other refills are due, in the near future, with this provider at this time: Yes The last office visit in the department: 07/06/24 Does the patient have a future office visit with this provider/department: Yes Requested Prescriptions Pending Prescriptions Disp Refills potassium chloride ER (KLOR-CON) 20 mEq tablet 30 tablet 5 Sig: Take 1 tablet by mouth once daily. omega-3 fatty acids (FISH OIL CONCENTRATE) 1,000 mg cap 30 capsule 11 Sig: Take 1 capsule by mouth once daily. nabumetone (RELAFEN) 500 mg tablet 30 tablet 2 Sig: Take 1 tablet by mouth once daily. TAKE WITH FOOD Cholecalciferol, Vitamin D3, 25 mcg (1,000 unit) cap 30 capsule 11 Sig: Take 1 capsule by mouth once daily. Angi Ordonez LPN July 09, 2024 8:50 AM [facility]09-[facility] Miscellaneous Notes* Telephone Encounter - Angi Ordonez LPN - 07/09/2024 8:49 AM EDT Prescription Refill Information The patient has been identified by name and date of : Yes Caregiver verified no other encounters exist for this prescription request: Yes Caregiver confirmed with patient/requestor that no other refills are due, in the near future, with this provider at this time: Yes The last office visit in the department: 07/06/24 Does the patient have a future office visit with this provider/department: Yes Requested Prescriptions Pending Prescriptions Disp Refills potassium chloride ER (KLOR-CON) 20 mEq tablet 30 tablet 5 Sig: Take 1 tablet by mouth once daily. omega-3 fatty acids (FISH OIL CONCENTRATE) 1,000 mg cap 30 capsule 11 Sig: Take 1 capsule by mouth once daily. nabumetone (RELAFEN) 500 mg tablet 30 tablet 2 Sig: Take 1 tablet by mouth once daily. TAKE WITH FOOD Cholecalciferol, Vitamin D3, 25 mcg (1,000 unit) cap 30 capsule 11 Sig: Take 1 capsule by mouth once daily. Angi Ordonez LPN July 09, 2024 8:50 AM documented in this encounterCleveland [id number] Note* Addendum Note - Radha Batista APRN.CNP - 07/06/2024 6:07 PM EDTAddended by: RADHA BATISTA on: 07/06/2024 06:07 PM Modules accepted: Orders [facility]09-24-[facility] Miscellaneous Notes* Addendum Note - Radha Batista APRN.CNP - 07/06/2024 6:07 PM EDTAddended by: RADHA BATISTA on: 07/06/2024 06:07 PM Modules accepted: Orders documented in this encounterEast [facility]09-24-2024 Instructions* Patient Instructions* Radha Batista APRN.CNP - 07/06/2024 3:21 PM EDT Return for fasting labwork. Recheck in 3 months, sooner if needed. documented in this encounterEast [facility]09-24-2024 History of Present illness Narrative* Radha Batista APRN.CNP - 07/06/2024 2:55 PM EDT This is a 58 year old female who presents today with: Patient presents with: Recheck: 3 month follow up HISTORY OF PRESENT ILLNESS: Brenda Le is a 58 year old female. Patient presents with: Recheck: 3 month follow up Pt presents today for 3 month recheck. Ongoing fatigue. Feels that she sleeps well at night. Dr. Ramirez had started her on trazodone -- refers that she was " mixed up in the brains and real tired." She is off of that now. + LIDA and uses CPAP. Refers that she is told that she needs a new machine. Schizophreniform disorder. Refers due for invega shot. Due tomorrow. Follows with psychiatry. Feels sad at times. Doesn't like living at the long term. COPD: Follows with Dr. Ramirez. Stable on inhalers. HTN: No CP. Occ SOB d/t COPD.r Diabetes: Sugars have been improved with adding of the sliding scale. Due for A1C. PAST MEDICAL HISTORY: PAST MEDICAL HISTORY Diagnosis Date Bilateral pneumonia 07/23/2018 Admit [facility]: pneumococcal suspected, neg culture. 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 MEDICATIONS Current Outpatient Medications Medication Sig aspirin, enteric coated (ASPIRIN, ENTERIC COATED) 325 mg EC tablet Take 1 tablet by mouth once daily. Take with food. docusate sodium (COLACE) 100 mg capsule Take 1 capsule by mouth two times a day. empagliflozin (JARDIANCE) 10 mg tablet Take 1 tablet by mouth daily with breakfast. metoprolol succinate ER (TOPROL XL) 25 mg 24 hr tablet take 1 tablet by mouth every evening Lancets Test blood sugar(s) 4 times daily with sliding scale coverage. Dx: Other DM Code E11.21 Insulin: Yes blood sugar diagnostic (BLOOD GLUCOSE TEST) test strip testing QIDtimes daily and sliding scale coverage. Insulin yes Use as instructed DXE11.21 omeprazole (PRILOSEC) 20 mg capsule Take 1 capsule by mouth daily before breakfast. 1/2 hr before meal. metroNIDAZOLE (METROGEL) 1 % Topical Gel Apply 1 application to affected area once daily. Location:face metroNIDAZOLE (METROGEL) 0.75 % Topical Gel Apply to affected area two times a day. polyethylene glycol 3350 (MIRALAX) 17 gram packet Take 1 Packet by mouth once daily. Dissolve dose in 4 - 8 ounces of liquid and take as directed. nabumetone (RELAFEN) 500 mg tablet Take 1 tablet by mouth once daily. TAKE WITH FOOD pramipexole (MIRAPEX) 0.5 mg tablet Take 0.5 tablets by mouth daily at bedtime. insulin needles, DISPOSABLE, (PEN NEEDLE) 31 gauge x 5/16" Use one needle per dose. 4 times daily (basaglar and humalog). Blood-Glucose Meter (FREESTYLE LITE METER) monitoring kit Used three times daily to check blood sugar. 250.00 insulin glargine (BASAGLAR KWIKPEN U-100 INSULIN) 100 unit/mL (3 mL) Inject 60 Units subcutaneouslyonce daily. At 4:00 PM insulin lispro (HUMALOG KWIKPEN) 100 unit/mL Sig: Administer Lispro insulin per scale AC breakfast morning, AC lunch, AC dinner as follows with glucose 150-199 2u, 200-249 3u, 250-299 5u, 300-350 8u,350-399 11u, 400- 449 14u, 450 and above go to ER. haloperidol (HALDOL) 2 mg tablet Take by mouth. atorvastatin (LIPITOR) 10 mg tablet Take 1 tablet by mouth daily at bedtime. For cholesterol. ferrous sulfate 325 mg (65 mg iron) tablet Take 1 tablet by mouth two times a day with meals. metFORMIN ER (GLUCOPHAGE XR) 500 mg 24 hr tablet Take 2 tablets by mouth two times a day before meals. potassium chloride ER (KLOR-CON) 20 mEq tablet Take 1 tablet by mouth once daily. sodium chloride-aloe vera (AYR SALINE GEL) nasal spray Use 1 mL in the nose two times a day. Artificial Tear, Hypromellose, (SYSTANE GEL) 0.3 % gel Use 1 Drop in both eyes daily at bedtime. furosemide (LASIX) 20 mg tablet Take 1 tablet by mouth once daily. miconazole nitrate (MONISTAT) 200 mg vaginal suppository Use 1 Suppository vaginally daily at bedtime. For 7 nights. omega-3 fatty acids (FISH OIL CONCENTRATE) 1,000 mg cap Take 1 capsule by mouth once daily. Cholecalciferol, Vitamin D3, 25 mcg (1,000 unit) cap Take 1 capsule by mouth once daily. guaiFENesin (MUCINEX) 600 mg 12 hr tablet Take 2 tablets by mouth two times a day. Comp Stocking,Knee,Regular,Med misc Patient to be measured for correct size. 20- 30 mmHg Dx: I50.31 fluticasone (FLONASE) 50 mcg/actuation nasal spray Use 2 Sprays in each nostril once daily. Rinse mouth after use. INVEGA SUSTENNA 156 mg/mL syrg injection clonazePAM (KLONOPIN) 0.5 mg tablet Take 0.5 mg by mouth three times daily as needed. acetaminophen (TYLENOL EXTRA STRENGTH) 500 mg tablet Take 1-2 tablets by mouth every 8 hours as needed for pain. Blood Pressure Monitor 1 Each twice daily. [...] as instructed once daily. Per Dr. Ramirez COMPOUNDED PRESCRIPTION BIPAP of 09/[address] Ramirez No current facility-administered medications for this visit. FAMILY HISTORY Problem Relation Age of Onset Psychiatry Mother depression Psychiatry Sister deperssion other (lung cancer) Paternal Grandfather Social History Tobacco Use Smoking status: Former Current packs/day: 0.00 Average packs/day: 2.0 packs/day for 20.0 years (40.0 ttl pk-yrs) Types: Cigarettes Start date: 01/11/1994 Quit date: 01/11/2014 Years since quittin.4 Smokeless tobacco: Never Vaping Use Vaping status: Never Used Substance Use Topics Alcohol use: No Drug use: No Comment: marijunan- Teen yrs, but not now EXAM: BP 132/82 Pulse 108 Resp 16 Wt 84.4 kg (186 lb) LMP 09/12/2017 SpO2 91% BMI 34.45 kg/m PHYSICAL EXAM: General Appearance: Well appearing, alert, in no acute distress, well-hydrated, well nourished.. Skin: Skin color, texture, turgor normal, no suspicious rashes or lesions. Head: Normocephalic, no masses, lesions, tenderness or abnormalities. Eyes: Anicteric sclera. Extraocular movements are intact. . Lungs: Lungs clear to auscultation. No wheezing, rhonchi, rales.. Heart: RRR without murmur, gallop, or rubs. No ectopy. Neurologic: Gait normal. ASSESSMENT/PLAN: 1. Uncontrolled type 2 diabetes mellitus with hyperglycemia (HCC) - ICD9: 250.02, ICD10: E11.65 (primary diagnosis) - Control undetermined, due for labs - Continue current medications 2. Encounter for immunization - ICD9: V03.89, ICD10: Z23 - INFLUENZA VACCINE, AGE 6MO-64YR, TRIVALENT (AFLURIA, FLULAVAL, FLUVIRIN, FLUZONE) - Cylande COVID-19 VACCINE AGE 12+ YR 3. Fatigue, unspecified type - ICD9: 780.79, ICD10: R53.83 Chronic. Continue per sleep med. 4. Type 2 diabetes mellitus with diabetic nephropathy, with long-term current use of insulin (HCC) - ICD9: 250.40, 583.81, V58.67, ICD10: E11.21, Z79.4 - Control undetermined, due for labs - Continue current medications 5. Chronic obstructive pulmonary disease, unspecified COPD type (HCC) - ICD9: 496, ICD10: J44.9 Stable. Continue per pulmonary. 6. Schizophreniform disorder, chronic condition (HCC) - ICD9: 295.42, ICD10: F20.81 Continue per psychiatry. 7. Primary hypertension - ICD9: 401.9, ICD10: I10 - Controlled - Continue current medications - Recommend home blood pressure monitoring, to bring results to next visit - Encouraged sodium restriction, DASH or Mediterranean diet - Recommend regular aerobic exercise Discussed treatment plan and patient voices understanding. Patient's questions answered appropriately. Medications and potential side effects were discussed and patient voices understanding. Return to the office as scheduled or as needed for worsening/no improvement. Radha Batista APRN.PAVITHRA documented in this encounterEast [facility]09-24[facility]* Telephone Encounter - Shelia Salmon APRN.CNP - 06/17/2024 5:06 PM EDT The following approved medication requests have been transmitted electronically. Requested Prescriptions Pending Prescriptions Disp Refills aspirin, enteric coated (ASPIRIN, ENTERIC COATED) 325 mg EC tablet 30 tablet 11 Sig: Take 1 tablet by mouth once daily. Take with food. docusate sodium (COLACE) 100 mg capsule 60 capsule 5 Sig: Take 1 capsule by mouth two times a day. empagliflozin (JARDIANCE) 10 mg tablet 30 tablet 3 Sig: Take 1 tablet by mouth daily with breakfast. Shelia Salmon APRN.CNP [facility]09-[facility]-2024 Miscellaneous Notes* Telephone Encounter - Shelia Salmon APRN.CNP - 06/17/2024 5:06 PM EDT The following approved medication requests have been transmitted electronically. Requested Prescriptions Pending Prescriptions Disp Refills aspirin, enteric coated (ASPIRIN, ENTERIC COATED) 325 mg EC tablet 30 tablet 11 Sig: Take 1 tablet by mouth once daily. Take with food. docusate sodium (COLACE) 100 mg capsule 60 capsule 5 Sig: Take 1 capsule by mouth two times a day. empagliflozin (JARDIANCE) 10 mg tablet 30 tablet 3 Sig: Take 1 tablet by mouth daily with breakfast. Shelia Salmon APRN.CNP * Telephone Encounter - Shirley Romero RN - 06/17/2024 4:22 PM EDT The patient has been identified by name and date of : Yes Caregiver verified no other encounters exist for this prescription request: Yes Caregiver confirmed with patient/requestor that no other refills are due, in the near future, with this provider at this time: Yes The last office visit in the department: 04/14/2024 Does the patient have a future office visit with this provider/department: Yes 06/30/2024 Requested Prescriptions Pending Prescriptions Disp Refills aspirin, enteric coated (ASPIRIN, ENTERIC COATED) 325 mg EC tablet 30 tablet 11 Sig: Take 1 tablet by mouth once daily. Take with food. docusate sodium (COLACE) 100 mg capsule 60 capsule 5 Sig: Take 1 capsule by mouth two times a day. empagliflozin (JARDIANCE) 10 mg tablet 30 tablet 3 Sig: Take 1 tablet by mouth daily with breakfast. Shirley Romero RN documented in this encounterEast [facility]09-05-2024 Telephone encounter Note * Telephone Encounter - Shirley Romero RN - 06/17/2024 4:22 PM EDT The patient has been identified by name and date of : Yes Caregiver verified no other encounters exist for this prescription request: Yes Caregiver confirmed with patient/requestor that no other refills are due, in the near future, with this provider at this time: Yes The last office visit in the department: 04/14/2024 Does the patient have a future office visit with this provider/department: Yes 06/30/2024 Requested Prescriptions Pending Prescriptions Disp Refills aspirin, enteric coated (ASPIRIN, ENTERIC COATED) 325 mg EC tablet 30 tablet 11 Sig: Take 1 tablet by mouth once daily. Take with food. docusate sodium (COLACE) 100 mg capsule 60 capsule 5 Sig: Take 1 capsule by mouth two times a day. empagliflozin (JARDIANCE) 10 mg tablet 30 tablet 3 Sig: Take 1 tablet by mouth daily with breakfast. Shirley Romero RN [facility]09-04-2024 Telephone encounter Note* Telephone Encounter - Loree Chen RN - 06/16/2024 8:26 AM EDT Pharmacy electronically requests the following refill(s) Requested Prescriptions Pending Prescriptions Disp Refills metoprolol succinate ER (TOPROL XL) 25 mg 24 hr tablet [Pharmacy Med Name: Metoprolol Succinate ER 25MG TB24] 30 tablet Sig: take 1 tablet by mouth every evening Loree Chen RN [facility]09-04-2024 Miscellaneous Notes* Telephone Encounter - Loree Chen RN - 06/16/2024 8:26 AM EDT Pharmacy electronically requests the following refill(s) Requested Prescriptions Pending Prescriptions Disp Refills metoprolol succinate ER (TOPROL XL) 25 mg 24 hr tablet [Pharmacy Med Name: Metoprolol Succinate ER 25MG TB24] 30 tablet Sig: take 1 tablet by mouth every evening Loree Chen RN documented in this encounterEast [facility] Hospital08-28-2024 Telephone encounter Note * Telephone Encounter - Maye Ferrer LPN - 06/09/2024 10:04 AM EDT The patient has been identified by name and date of : Yes Pharmacy Caregiver verified no other encounters exist for this prescription request: Yes Caregiver confirmed with patient/requestor that no other refills are due, in the near future, with this provider at this time: Yes The last office visit in the department: 04/14/2024 Does the patient have a future office visit with this provider/department: Yes 06/30/2024 Requested Prescriptions Pending Prescriptions Disp Refills Lancets 100 Each 11 Sig: Test blood sugar(s) 4 times daily with sliding scale coverage. Dx: Other DM Code E11.21 Insulin: Yes Maye Ferrer LPN June 09, 2024 10:05 AM [facility]08-28-2024 Miscellaneous Notes* Telephone Encounter - Maye Ferrer LPN - 06/09/2024 10:04 AM EDT The patient has been identified by name and date of : Yes Pharmacy Caregiver verified no other encounters exist for this prescription request: Yes Caregiver confirmed with patient/requestor that no other refills are due, in the near future, with this provider at this time: Yes The last office visit in the department: 04/14/2024 Does the patient have a future office visit with this provider/department: Yes 06/30/2024 Requested Prescriptions Pending Prescriptions Disp Refills Lancets 100 Each 11 Sig: Test blood sugar(s) 4 times daily with sliding scale coverage. Dx: Other DM Code E11.21 Insulin: Yes Maye Ferrer LPN June 09, 2024 10:05 AM documented in this encounterEast [facility] Hospital08-08-2024 Telephone encounter Note * Telephone Encounter - Cristal White RN - 05/20/2024 8:49 AM EDT Laxmi with [facility] called and is notified of providers message. She voices understanding. Cristal White RN [facility]08-[facility]-2024 Miscellaneous Notes* Telephone Encounter - Cristal White RN - 05/20/2024 8:49 AM EDT Laxmi with [facility] called and is notified of providers message. She voices understanding. Cristal White RN * Telephone Encounter - Aleksandar Jones MD - 05/19/2024 4:57 PM EDT Sent over new script * Telephone Encounter - Brandy Mark LPN - 05/19/2024 2:43 PM EDT Breanna Zheng with [facility] she is with pt and we have permission per pt to speak with Breanna or staff members. She is checking to see if okay to check pt's blood sugar 4 times per day. They check before meals and at 3 pm before she gets her 3 pm meds. Breanna reports they are running out of test strips because it lists that they are to take blood sugars 3 times per day and they are doing 4 times per day . If okay please sent new prescription to the pharmacy. Please advise Breanna or staff member. Brandy Mark LPN documented in this encounterEast [facility]08-07-2024 Telephone encounter Note * Telephone Encounter - Aleksandar Jones MD - 05/19/2024 4:57 PM EDT Sent over new script [facility] Telephone encounter Note* Telephone Encounter - Brandy Mark LPN - 05/19/2024 2:43 PM EDT Breanna Zheng with [facility] she is with pt and we have permission per pt to speak with Breanna or staff members. She is checking to see if okay to check pt's blood sugar 4 times per day. They check before meals and at 3 pm before she gets her 3 pm meds. Breanna reports they are running out of test strips because it lists that they are to take blood sugars 3 times per day and they are doing 4 times per day . If okay please sent new prescription to the pharmacy. Please advise Breanna or staff member. Brandy Mark LPN [facility]-06-20[facility] Telephone encounter Note* Telephone Encounter - Eunice Spivey RN - 05/18/2024 1:15 PM EDT The patient has been identified by name and date of : Yes Caregiver verified no other encounters exist for this prescription request: Yes Caregiver confirmed with patient/requestor that no other refills are due, in the near future, with this provider at this time: Yes The last office visit in the department: 04/14/2024 Does the patient have a future office visit with this provider/department: Yes 06/30/2024 Requested Prescriptions Pending Prescriptions Disp Refills omeprazole (PRILOSEC) 20 mg capsule 30 capsule 5 Sig: Take 1 capsule by mouth daily before breakfast. 1/2 hr before meal. Eunice Spivey RN May 18, 2024 1:15 PM [facility] Miscellaneous Notes* Telephone Encounter - Eunice Spivey RN - 05/18/2024 1:15 PM EDT The patient has been identified by name and date of : Yes Caregiver verified no other encounters exist for this prescription request: Yes Caregiver confirmed with patient/requestor that no other refills are due, in the near future, with this provider at this time: Yes The last office visit in the department: 04/14/2024 Does the patient have a future office visit with this provider/department: Yes 06/30/2024 Requested Prescriptions Pending Prescriptions Disp Refills omeprazole (PRILOSEC) 20 mg capsule 30 capsule 5 Sig: Take 1 capsule by mouth daily before breakfast. 1/2 hr before meal. Eunice Spivey RN May 18, 2024 1:15 PM [facility] Note * Telephone Encounter - Alma Smart RN - 05/03/2024 12:02 PM EDT [facility] reports insurance will not cover the metronidazole 1%. The insurance is saying they will cover the preferred, which is metronidazole 0.75% Pended. [facility] Miscellaneous Notes* Telephone Encounter - Alma Smart RN - 05/03/2024 12:02 PM EDT [facility] reports insurance will not cover the metronidazole 1%. The insurance is saying they will cover the preferred, which is metronidazole 0.75% Pended. [facility] Telephone encounter Note * Telephone Encounter - Alma Smart RN - 05/03/2024 8:50 AM EDT The patient has been identified by name and date of : Yes Caregiver verified no other encounters exist for this prescription request: Yes Caregiver confirmed with patient/requestor that no other refills are due, in the near future, with this provider at this time: Yes The last office visit in the department: 04/14/2024 Does the patient have a future office visit with this provider/department: Yes 06/30/2024 Requested Prescriptions Pending Prescriptions Disp Refills metroNIDAZOLE (METROGEL) 1 % Topical Gel 60 g 5 Sig: Apply 1 application to affected area once daily. Location: face Alma Smart RN May 03, 2024 8:51 AM [facility] Miscellaneous Notes* Telephone Encounter - Alma Smart RN - 05/03/2024 8:50 AM EDT The patient has been identified by name and date of : Yes Caregiver verified no other encounters exist for this prescription request: Yes Caregiver confirmed with patient/requestor that no other refills are due, in the near future, with this provider at this time: Yes The last office visit in the department: 04/14/2024 Does the patient have a future office visit with this provider/department: Yes 06/30/2024 Requested Prescriptions Pending Prescriptions Disp Refills metroNIDAZOLE (METROGEL) 1 % Topical Gel 60 g 5 Sig: Apply 1 application to affected area once daily. Location: face Alma Smart RN May 03, 2024 8:51 AM [facility] Telephone encounter Note * Telephone Encounter - Alma Smart RN - 04/16/2024 1:43 PM EDT The patient has been identified by name and date of : Yes Caregiver verified no other encounters exist for this prescription request: Yes Caregiver confirmed with patient/requestor that no other refills are due, in the near future, with this provider at this time: Yes The last office visit in the department: 04/14/2024 Does the patient have a future office visit with this provider/department: Yes 06/30/2024 Requested Prescriptions Pending Prescriptions Disp Refills nabumetone (RELAFEN) 500 mg tablet 30 tablet 2 Sig: Take 1 tablet by mouth once daily. TAKE WITH FOOD pramipexole (MIRAPEX) 0.5 mg tablet 30 tablet 5 Sig: Take 0.5 tablets by mouth daily at bedtime. Alma Smart RN April 16, 2024 1:45 PM [facility] Miscellaneous Notes* Telephone Encounter - Alma Smart RN - 04/16/2024 1:43 PM EDT The patient has been identified by name and date of : Yes Caregiver verified no other encounters exist for this prescription request: Yes Caregiver confirmed with patient/requestor that no other refills are due, in the near future, with this provider at this time: Yes The last office visit in the department: 04/14/2024 Does the patient have a future office visit with this provider/department: Yes 06/30/2024 Requested Prescriptions Pending Prescriptions Disp Refills nabumetone (RELAFEN) 500 mg tablet 30 tablet 2 Sig: Take 1 tablet by mouth once daily. TAKE WITH FOOD pramipexole (MIRAPEX) 0.5 mg tablet 30 tablet 5 Sig: Take 0.5 tablets by mouth daily at bedtime. Alma Smart RN April 16, 2024 1:45 PM documented in [facility] Telephone encounter Note * Telephone Encounter - Eunice Spivey RN - 04/16/2024 8:42 AM EDT The patient has been identified by name and date of : Yes Caregiver verified no other encounters exist for this prescription request: Yes Caregiver confirmed with patient/requestor that no other refills are due, in the near future, with this provider at this time: Yes The last office visit in the department: 04/14/2024 Does the patient have a future office visit with this provider/department: Yes 06/30/2024 Requested Prescriptions Pending Prescriptions Disp Refills polyethylene glycol 3350 (MIRALAX) 17 gram packet 28 Packet 11 Sig: Take 1 Packet by mouth once daily. Dissolve dose in 4 - 8 ounces of liquid and take as directed. Eunice Spivey RN April 16, 2024 8:43 AM [facility] Miscellaneous Notes* Telephone Encounter - Eunice Spivey RN - 04/16/2024 8:42 AM EDT The patient has been identified by name and date of : Yes Caregiver verified no other encounters exist for this prescription request: Yes Caregiver confirmed with patient/requestor that no other refills are due, in the near future, with this provider at this time: Yes The last office visit in the department: 04/14/2024 Does the patient have a future office visit with this provider/department: Yes 06/30/2024 Requested Prescriptions Pending Prescriptions Disp Refills polyethylene glycol 3350 (MIRALAX) 17 gram packet 28 Packet 11 Sig: Take 1 Packet by mouth once daily. Dissolve dose in 4 - 8 ounces of liquid and take as directed. Eunice Spivey RN April 16, 2024 8:43 AM documented in [facility] encounter[facility]07-[facility]24 Instructions* Patient Instructions* Radha Batista APRN.PAVITHRA - 04/14/2024 1:45 PM EDT Start the bactroban ointment three times daily for a week. Let us know if no better/worsening. Make sure to discuss fatigue with sleep medicine next week to see if another sleep study is indicated. documented [facility] History of Present illness Narrative* Radha Batista APRN.TANNING SALON ATTENDANT - 04/14/2024 1:04 PM EDT This is a 58 year old female who presents today with: Patient presents with: Acute Visit: Itchy rash in groin x couple weeks; using otc vaseline HISTORY OF PRESENT ILLNESS: Brenda Le is a 58 year old female. Patient presents with: Acute Visit: Itchy rash in groin x couple weeks; using otc vaseline Pt presents with itching in amber area Pt noticed it a couple of weeks ago No associated pain No drainage No new soaps/laundry detergent No allergies Pt has tried vaseline on the itchy area and states that it has helped Last month had yeast infection Pt has been feeling more fatigue than normal in the last month No recent changes to psych meds Per caregiver, pt has been sleeping more and not her usual self Pt is concerned that the nebumatone is causing her fatigue Per patient and caregiver, blood sugars have been more controlled Pt wears a CPAP at night but has recently had changes to settings/humidification Pt wakes up 2-3 times in the night with hallucinations Pt says she is lethargic during the day and takes 2-3 hour naps at a time PAST MEDICAL HISTORY: PAST MEDICAL HISTORY Diagnosis Date Bilateral pneumonia 07/23/2018 Admit [facility]: pneumococcal suspected, neg culture. 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 MEDICATIONS Current Outpatient Medications Medication Sig Lancets Test blood sugar(s) 3 times daily with sliding scale coverage. Dx: Other DM Code E11.21 Insulin: Yes insulin needles, DISPOSABLE, (PEN NEEDLE) 31 gauge x 5/16" Use one needle per dose. 4 times daily (basaglar and humalog). blood sugar diagnostic (BLOOD GLUCOSE TEST) test strip testing three times daily and sliding scale coverage. Insulin yes Use as instructed DXE11.21 Blood-Glucose Meter (FREESTYLE LITE METER) monitoring kit Used three times daily to check blood sugar. 250.00 insulin glargine (BASAGLAR KWIKPEN U-100 INSULIN) 100 unit/mL (3 mL) Inject 60 Units subcutaneouslyonce daily. At 4:00 PM insulin lispro (HUMALOG KWIKPEN) 100 unit/mL Sig: Administer Lispro insulin per scale AC breakfast morning, AC lunch, AC dinner as follows with glucose 150-199 2u, 200-249 3u, 250-299 5u, 300-350 8u,350-399 11u, 400- 449 14u, 450 and above go to ER. haloperidol (HALDOL) 2 mg tablet Take by mouth. nabumetone (RELAFEN) 500 mg tablet Take 1 tablet by mouth once daily. TAKE WITH FOOD atorvastatin (LIPITOR) 10 mg tablet Take 1 tablet by mouth daily at bedtime. For cholesterol. ferrous sulfate 325 mg (65 mg iron) tablet Take 1 tablet by mouth two times a day with meals. metFORMIN ER (GLUCOPHAGE XR) 500 mg 24 hr tablet Take 2 tablets by mouth two times a day before meals. empagliflozin (JARDIANCE) 10 mg tablet Take 1 tablet by mouth daily with breakfast. potassium chloride ER (KLOR-CON) 20 mEq tablet Take 1 tablet by mouth once daily. sodium chloride-aloe vera (AYR SALINE GEL) nasal spray Use 1 mL in the nose two times a day. docusate sodium (COLACE) 100 mg capsule Take 1 capsule by mouth two times a day. omeprazole (PRILOSEC) 20 mg capsule Take 1 capsule by mouth daily before breakfast. 1/2 hr before meal. Artificial Tear, Hypromellose, (SYSTANE GEL) 0.3 % gel Use 1 Drop in both eyes daily at bedtime. furosemide (LASIX) 20 mg tablet Take 1 tablet by mouth once daily. miconazole nitrate (MONISTAT) 200 mg vaginal suppository Use 1 Suppository vaginally daily at bedtime. For 7 nights. omega-3 fatty acids (FISH OIL CONCENTRATE) 1,000 mg cap Take 1 capsule by mouth once daily. Cholecalciferol, Vitamin D3, 25 mcg (1,000 unit) cap Take 1 capsule by mouth once daily. guaiFENesin (MUCINEX) 600 mg 12 hr tablet Take 2 tablets by mouth two times a day. aspirin, enteric coated (ASPIRIN, ENTERIC COATED) 325 mg EC tablet Take 1 tablet by mouth once daily. Take with food. metoprolol succinate ER (TOPROL XL) 25 mg 24 hr tablet take 1 tablet by mouth every evening pramipexole (MIRAPEX) 0.5 mg tablet Take 0.5 tablets by mouth daily at bedtime. Comp Stocking,Knee,Regular,Med misc Patient to be measured for correct size. 20- 30 mmHg Dx: I50.31 polyethylene glycol 3350 (MIRALAX) 17 gram packet Take 1 Packet by mouth once daily. Dissolve dose in 4 - 8 ounces of liquid and take as directed. fluticasone (FLONASE) 50 mcg/actuation nasal spray Use 2 Sprays in each nostril once daily. Rinse mouth after use. metroNIDAZOLE (METROGEL) 1 % Topical Gel Apply 1 application to affected area once daily. Location:face INVEGA SUSTENNA 156 mg/mL syrg injection clonazePAM (KLONOPIN) 0.5 mg tablet Take 0.5 mg by mouth three times daily as needed. acetaminophen (TYLENOL EXTRA STRENGTH) 500 mg tablet Take 1-2 tablets by mouth every 8 hours as needed for pain. Blood Pressure Monitor 1 Each twice daily. [...] as instructed once daily. Per Dr. Ramirez COMPOUNDED PRESCRIPTION BIPAP of 09/[address] on [address] Ramirez No current facility-administered medications for this visit. FAMILY HISTORY Problem Relation Age of Onset Psychiatry Mother depression Psychiatry Sister deperssion other (lung cancer) Paternal Grandfather Social History Tobacco Use Smoking status: Former Packs/day: 2.00 Years: 20.00 Additional pack years: 0.00 Total pack years: 40.00 Types: Cigarettes Quit date: 01/11/2014 Years since quittin.2 Smokeless tobacco: Never Vaping Use Vaping Use: Never used Substance Use Topics Alcohol use: No Drug use: No Comment: jeremy- Teen yrs, but not now EXAM: BP 118/70 Pulse 110 Resp 16 LMP 09/12/2017 SpO2 93% PHYSICAL EXAM: General Appearance: Well appearing, alert, in no acute distress, well-hydrated, well nourished.. Skin: Skin color, texture, turgor normal, no suspicious lesions. Small, pink, papular rash on bilateral sides of groin folds. Head: Normocephalic, no masses, lesions, tenderness or abnormalities. Eyes: Anicteric sclera. Extraocular movements are intact. . Lungs: Lungs clear to auscultation. No wheezing, rhonchi, rales.. Heart: RRR without murmur, gallop, or rubs. No ectopy. Abdomen: Abdomen soft, non-tender. Bowel sounds normal. No masses, organomegaly. Musculoskeletal: No joint swelling, deformity, or tenderness. Neurologic: Gait normal. ASSESSMENT/PLAN: 1. Folliculitis - ICD9: 704.8, ICD10: L73.9 (primary diagnosis) - small, pink, papular rash on bilateral sides of groin folds - mupirocin 2% ointment TID x 7 days 2. Fatigue, unspecified type - ICD9: 780.79, ICD10: R53.83 - Recommended patient try to refrain from daytime napping to promote sleep at night - Pt has upcoming appointment with Dr. Boswell, plan to discuss daytime fatigue and difficulty sleeping at night with team. - Pt has upcoming appointment with psychiatry, plan to discuss fatigue with team. Discussed treatment plan and patient voices understanding. Patient's questions answered appropriately. Medications and potential side effects were discussed and patient voices understanding. Return to the office as scheduled or as needed for worsening/no improvement. Radha Batista APRN.PAVITHRA The patient indicates understanding of these issues and agrees with the plan. documented [facility] History of Present illness Narrative* Gerardo Davis, PT - 04/01/2024 2:25 PM EDT Images from the original note were not included. Episode Visit Count: 16 Therapist That Will Accept/Oversee The Plan Of Care: Gerardo Davis PT Start of Care Date: 01/21/24 Onset Date: 11/22/23 Plan of Care Certification Date: 03/16/24 Next Certification Due Date: 04/13/24 Patient Identified by Name and Date of : Yes REHABILITATION AND SPORTS THERAPY PHYSICAL THERAPY DISCONTINUANCE OF CARE PLAN OF CARE UPDATE: Assessment: Brenda Le is discontinued from Physical Therapy services due to goal achievement and maximal benefit. and Patient/Clinician mutual decision to discontinue current plan of care.. Patient was seen for 16 visits from Start of Care Date: 01/21/24 to 04/01/2024 and treatment included: Therapeutic exercise, Neuromuscular re-education, Self-senior care management, Gait training, Patient/Family/Caregiver Education, and General conditioning. Updated: 02/19/24 and 03/16/24 and 04/01/24 Goals for Episode of Care: created on 01/21/24 through 03/03/24 Independent in home exercises. - MET Patient will decrease pain to 0/10 at rest and with functional activities to allow patient to improve ambulation, transfers, and standing tolerance for ADLs. - MET Stand / Walk without limitations, without pain/symptoms. - MET Sleep through night without pain/symptoms. - MET Patient will increase strength of core and postural muscles to WFL to allow for improved ability to complete ADLs and tolerate positions and ambulation. - MET Improve score on Timed Up and Go Test to 7.24 seconds to reflect decreased fall risk. - MET, (currently 6.58seconds) Patient Goals: get rid of pain and make legs stronger - MET Classification Pain Mechanism Classification: Neuropathic Low Back Pain Classification: Movement Control SUBJECTIVE: Pt reports that overall she is better since starting PT. She states, "my legs don't feel like I have weights on my legs." She reports compliance with HEP 2x day prior to her bed breaking.She reports that her bed was repaired and now she can resume completing HEP. She reports that she is transferring better, walking better and has increased standing tolerance. She denies any interruption in her sleep related to back or LE symptoms. Pain: Pain Pain Level: 0 Post Treatment Pain Post Treatment Pain Level: No Change PROMIS Scales 03/23/2024 02/19/2024 01/21/2024 Higher is Better Phys Func - Score 38 (moderate dysfunction) 38 (moderate dysfunction) 39 (moderate dysfunction) Phys Func - Percentile 12 12 14 Self-Eff Symptom - Score 41 (Average) 41 (Average) 41 (Average) Self-Eff Symptom - Percentile 18 18 18 T-scores: mean of general population = 50. 5 points is clinically meaningfully difference Percentiles provide an indication of how the patient's score ranks in relation to the general population. Higher percentile rankings indicate better function/quality of life. 50th percentile is the average of the general population and indicates half of respondents had a worse score. OBJECTIVE MEASURES WITH LEVEL OF FUNCTION: Gait Gait Observation: Pt's quality of gait is improved and her energy level is improved. Functional Performance Test Results 30 Second Chair Stand Test: 15 reps Timed Up and Go (sec): 6.8 sec TREATMENT: Therapeutic Exercise: 1: [employer] StepOne seat #10 x7 minutes resistance level 2 to focus on endurance (1:1 throughout. Pt provided an update on her condition and subjective portion of goals assessed.) 2: B forward step ups on 6" step in // bars 2x10 each with SBA 4: lateral step ups on and over dome side of BOSU at // bars 2x10 5: Seated hip adduction with ball 3x15 6: Seated hip abduction with blue theraband 3x15 8: repeated sit to stand from chair 3x10 with 11# ball in hands. 9: Re-assessment results shared with patient and used as rationale for d/c recommendations. 10: HEP was thoroughly reviewed and continuation encouraged to tolerance. This recommendation was shared with patient's caregiver. Skilled Intervention: Patient was educated in proper exercise technique and purpose for exercises. Skilled judgment was used in selection of appropriate interventions. Correct performance of therapeutic exercises was facilitated with verbal, visual, and tactile cuing. Patient education as noted. Billing KX Modifier : Therapist attests that services rendered are medically necessary. Therapeutic Exercise Treatment Minutes: 42 Skilled Treatment Time Minutes (timed and untimed codes): 42 Total Session Time (minutes): 42 Session Start Time : 1005 Session Stop Time : 1047 Gerardo Golias, PT documented in this encounter[facility] History of Present illness Narrative* Gerardo Davis PT - 03/30/2024 12:19 PM EDT Episode Visit Count: 15 Therapist That Will Accept/Oversee The Plan Of Care: Gerardo Davis PT Start of Care Date: 01/21/24 Onset Date: 11/22/23 Plan of Care Certification Date: 03/16/24 Next Certification Due Date: 04/13/24 Patient Identified by Name and Date of : Yes REHABILITATION AND SPORTS THERAPY PHYSICAL THERAPY TREATMENT NOTE ASSESSMENT: Brenda Le tolerated the session with fatigue and no issues. She demonstrated improvements in gait, mood and exercise tolerance. The patient will continue to benefit from ongoing skilled physical therapy to progress toward set goals and for reassessment by supervising therapist. Classification Pain Mechanism Classification: Neuropathic Low Back Pain Classification: Movement Control PLAN FOR NEXT VISIT: Continue with standing exercises as tolerated, functional strengthening, and balance. Re-assess forplan of care update. SUBJECTIVE: Pt reports that overall her medication changes have been successful and as a result shehas been feeling better in general. She reports seeing referring provider prior to today's PT appointment but that she did not receive any new instructions regarding PT. Pain: Pain Pain Level: 0 Post Treatment Pain Post Treatment Pain Level: No Change Post Treatment Symptoms: Pt reported fatigue from a good workout but she denied any increase in pain. OBJECTIVE MEASURES WITH LEVEL OF FUNCTION: Gait Gait Observation: Pt's quality of gait is improved and her energy level seems improved. TREATMENT: Therapeutic Exercise: 1: [employer] StepOne seat #10 x7 minutes resistance level 2 to focus on endurance (1:1 throughout. Discussed current exercises.) 2: B forward step ups on 6" step outside // bars 2x12 each with CGA and gait belt 3: squats outside // bars 2x10 with gait belt and SBA 4: lateral step ups on and over dome side of BOSU at // bars 2x10 5: Seated hip adduction with ball 3x15 6: Seated hip abduction with blue theraband 3x15 7: Seated HS curls with blue theraband 2x10 B 8: repeated sit to stand from chair 3x10 with 11# ball in hands. Skilled Intervention: Patient was educated in proper exercise technique and purpose for exercises. Skilled judgment was used in selection of appropriate interventions. Correct performance of therapeutic exercises was facilitated with verbal and visual cuing. Billing KX Modifier : Therapist attests that services rendered are medically necessary. Therapeutic Exercise Treatment Minutes: 43 Skilled Treatment Time Minutes (timed and untimed codes): 43 Total Session Time (minutes): 43 Session Start Time : 1132 Session Stop Time : 1215 Gerardo Davis PT documented in this encounterEast [facility]06-[facility]24 Instructions* Patient Instructions* Radha Batista APRN.CNP - 03/30/2024 9:16 AM EDT Continue the same medication. Get labs. Recheck in 3 months. documented in this encounterEast [facility]06-[facility] History of Present illness Narrative* Radha Batista APRN.CNP - 03/30/2024 9:02 AM EDT This is a 58 year old female who presents today with: Patient presents with: Recheck: 1 week follow up- restarted sliding scale insulin; increased basaglar HISTORY OF PRESENT ILLNESS: Brenda Le is a 58 year old female. Patient presents with: Recheck: 1 week follow up- restarted sliding scale insulin; increased basaglar Pt presents today to follow-up on sugars. At her last visit, her sugars had been running high. We increase her basal insulin. We also restarted her mealtime sliding scale coverage. Today, she presents with caregiver. Reports minimal coverage is needed at breakfast or lunch. Sugars seem to be running higher in the evenings and is requiring sliding scale at supper time. At last visit, the computers were down and there was no access to chart. PAST MEDICAL HISTORY: PAST MEDICAL HISTORY Diagnosis Date Bilateral pneumonia 07/23/2018 Admit [facility]: pneumococcal suspected, neg culture. 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 MEDICATIONS Current Outpatient Medications Medication Sig Lancets Test blood sugar(s) 3 times daily with sliding scale coverage. Dx: Other DM Code E11.21 Insulin: Yes insulin needles, DISPOSABLE, (PEN NEEDLE) 31 gauge x 5/16" Use one needle per dose. 4 times daily (basaglar and humalog). blood sugar diagnostic (BLOOD GLUCOSE TEST) test strip testing three times daily and sliding scale coverage. Insulin yes Use as instructed DXE11.21 Blood-Glucose Meter (FREESTYLE LITE METER) monitoring kit Used three times daily to check blood sugar. 250.00 insulin glargine (BASAGLAR KWIKPEN U-100 INSULIN) 100 unit/mL (3 mL) Inject 60 Units subcutaneouslyonce daily. At 4:00 PM insulin lispro (HUMALOG KWIKPEN) 100 unit/mL Sig: Administer Lispro insulin per scale AC breakfast morning, AC lunch, AC dinner as follows with glucose 150-199 2u, 200-249 3u, 250-299 5u, 300-350 8u,350-399 11u, 400- 449 14u, 450 and above go to ER. haloperidol (HALDOL) 2 mg tablet Take by mouth. nabumetone (RELAFEN) 500 mg tablet Take 1 tablet by mouth once daily. TAKE WITH FOOD atorvastatin (LIPITOR) 10 mg tablet Take 1 tablet by mouth daily at bedtime. For cholesterol. ferrous sulfate 325 mg (65 mg iron) tablet Take 1 tablet by mouth two times a day with meals. metFORMIN ER (GLUCOPHAGE XR) 500 mg 24 hr tablet Take 2 tablets by mouth two times a day before meals. empagliflozin (JARDIANCE) 10 mg tablet Take 1 tablet by mouth daily with breakfast. potassium chloride ER (KLOR-CON) 20 mEq tablet Take 1 tablet by mouth once daily. sodium chloride-aloe vera (AYR SALINE GEL) nasal spray Use 1 mL in the nose two times a day. docusate sodium (COLACE) 100 mg capsule Take 1 capsule by mouth two times a day. omeprazole (PRILOSEC) 20 mg capsule Take 1 capsule by mouth daily before breakfast. 1/2 hr before meal. Artificial Tear, Hypromellose, (SYSTANE GEL) 0.3 % gel Use 1 Drop in both eyes daily at bedtime. furosemide (LASIX) 20 mg tablet Take 1 tablet by mouth once daily. miconazole nitrate (MONISTAT) 200 mg vaginal suppository Use 1 Suppository vaginally daily at bedtime. For 7 nights. omega-3 fatty acids (FISH OIL CONCENTRATE) 1,000 mg cap Take 1 capsule by mouth once daily. Cholecalciferol, Vitamin D3, 25 mcg (1,000 unit) cap Take 1 capsule by mouth once daily. guaiFENesin (MUCINEX) 600 mg 12 hr tablet Take 2 tablets by mouth two times a day. aspirin, enteric coated (ASPIRIN, ENTERIC COATED) 325 mg EC tablet Take 1 tablet by mouth once daily. Take with food. metoprolol succinate ER (TOPROL XL) 25 mg 24 hr tablet take 1 tablet by mouth every evening pramipexole (MIRAPEX) 0.5 mg tablet Take 0.5 tablets by mouth daily at bedtime. Comp Stocking,Knee,Regular,Med misc Patient to be measured for correct size. 20- 30 mmHg Dx: I50.31 polyethylene glycol 3350 (MIRALAX) 17 gram packet Take 1 Packet by mouth once daily. Dissolve dose in 4 - 8 ounces of liquid and take as directed. fluticasone (FLONASE) 50 mcg/actuation nasal spray Use 2 Sprays in each nostril once daily. Rinse mouth after use. metroNIDAZOLE (METROGEL) 1 % Topical Gel Apply 1 application to affected area once daily. Location:face INVEGA SUSTENNA 156 mg/mL syrg injection clonazePAM (KLONOPIN) 0.5 mg tablet Take 0.5 mg by mouth three times daily as needed. acetaminophen (TYLENOL EXTRA STRENGTH) 500 mg tablet Take 1-2 tablets by mouth every 8 hours as needed for pain. Blood Pressure Monitor 1 Each twice daily. [...] as instructed once daily. Per Dr. Ramirez COMPOUNDED PRESCRIPTION BIPAP of 09/19 on [address]L oxygen [address] Dr[address] Ramirez No current facility-administered medications for this visit. FAMILY HISTORY Problem Relation Age of Onset Psychiatry Mother depression Psychiatry Sister deperssion other (lung cancer) Paternal Grandfather Social History Tobacco Use Smoking status: Former Packs/day: 2.00 Years: 20.00 Additional pack years: 0.00 Total pack years: 40.00 Types: Cigarettes Quit date: 01/11/2014 Years since quittin.2 Smokeless tobacco: Never Vaping Use Vaping Use: Never used Substance Use Topics Alcohol use: No Drug use: No Comment: marijunan- Teen yrs, but not now EXAM: BP 108/72 Pulse 91 Resp 16 LMP 09/12/2017 SpO2 96% PHYSICAL EXAM: General Appearance: Well appearing, alert, in no acute distress, well-hydrated, well nourished.. Skin: Skin color, texture, turgor normal, no suspicious rashes or lesions. Head: Normocephalic, no masses, lesions, tenderness or abnormalities. Eyes: Anicteric sclera. Extraocular movements are intact. . Lungs: Lungs clear to auscultation. No wheezing, rhonchi, rales.. Heart: RRR without murmur, gallop, or rubs. No ectopy. Extremities: No deformities, edema, skin discoloration, clubbing or cyanosis. Good capillary refill. . Neurologic: Gait normal. ASSESSMENT/PLAN: 1. Uncontrolled type 2 diabetes mellitus with hyperglycemia (HCC) - ICD9: 250.02, ICD10: E11.65 - Uncontrolled, but sugars appear to be improving. - Continue current medications Previously ordered lab today. Recheck in 3 months. Discussed treatment plan and patient voices understanding. Patient's questions answered appropriately. Medications and potential side effects were discussed and patient voices understanding. Return to the office as scheduled or as needed for worsening/no improvement. Radha Batista APRN.TANNING [employer]ON ATTENDANT [facility] of Present illness Narrative* Gerardo Davis, PT - 03/25/2024 11:50 AM EDT Episode Visit Count: 14 Therapist That Will Accept/Oversee The Plan Of Care: Gerardo Davis PT Start of Care Date: 01/21/24 Onset Date: 11/22/23 Plan of Care Certification Date: 03/16/24 Next Certification Due Date: 04/13/24 Patient Identified by Name and Date of : Yes REHABILITATION AND SPORTS THERAPY PHYSICAL THERAPY TREATMENT NOTE ASSESSMENT: Brenda Le tolerated the session with fatigue and expected muscle soreness. She demonstrated improvements in tolerance to standing exercise with fewer rest breaks. The patient will continue to benefit from ongoing skilled physical therapy to progress toward set goals. PLAN FOR NEXT VISIT: Continue with standing exercises as tolerated, functional strengthening, and balance. SUBJECTIVE: Pt states that she feels like she has a little more energy today. Pt states that she completed some chores this morning prior to coming to therapy. Pt states having diffiuclty getting allof her exercise done becuase her bed is not good and she can't get on the floor. Pain: Pain Pain Level: 0 Post Treatment Pain Post Treatment Pain Level: 0 OBJECTIVE MEASURES WITH LEVEL OF FUNCTION: TREATMENT: Therapeutic Exercise: 1: Once [employer] StepOne seat #10 x7 minutes to focus on endurance (1:1 throughout. Discussed current exercises.) 2: B forward step ups on 6" step outside // bars 2x10 each with CGA and gait belt 3: squats outside // bars 2x10 with gait belt and SBA 4: standing hip abduction 2x10 B 5: Seated hip adduction with ball 3x15 6: Seated hip abduction with blue theraband 3x10 7: Seated HS curls with blue theraband 3x10 B 8: repeated sit to stand from chair 2x10 with 11# ball in hands. Skilled Intervention: Patient was educated in proper exercise technique and purpose for exercises. Skilled judgment was used in selection of appropriate interventions. Correct performance of therapeutic exercises was facilitated with verbal and visual cuing. Billing KX Modifier : Therapist attests that services rendered are medically necessary. Therapeutic Exercise Treatment Minutes: 32 Skilled Treatment Time Minutes (timed and untimed codes): 32 Total Session Time (minutes): 32 Session Start Time : 1146 Session Stop Time : 1218 Jaci Brady, SHEET METAL APPRENTICE Gerardo Davis PT documented in this encounter[facility] History of Present illness Narrative* Gerardo Davis PT - 03/23/2024 11:30 AM EDT Episode Visit Count: 13 Therapist That Will Accept/Oversee The Plan Of Care: Gerardo Davis PT Start of Care Date: 01/21/24 Onset Date: 11/22/23 Plan of Care Certification Date: 03/16/24 Next Certification Due Date: 04/13/24 Patient Identified by Name and Date of : Yes REHABILITATION AND SPORTS THERAPY PHYSICAL THERAPY TREATMENT NOTE ASSESSMENT: Brenda Le tolerated the session with decreased activity tolerance due to LE fatigue, decreased endurance, fatigue, and expected muscle soreness. She demonstrated improvements in exercise tolerance today, including progressions. The patient will continue to benefit from ongoing skilled physical therapy to progress toward set goals. Classification Pain Mechanism Classification: Neuropathic Low Back Pain Classification: Movement Control PLAN FOR NEXT VISIT: Continue with standing exercises as tolerated, functional strengthening, and balance. SUBJECTIVE: Pt reports that overall she is feeling approximately the same. She reports that medication changes have been made. She reports feeling weak to start today but she denies any pain. Pt's caregiver reports that pt reported LE weakness this morning. Pain: Pain Pain Level: 0 Description: (no pain to start today) Frequency: Intermittent Post Treatment Pain Post Treatment Pain Level: No Change Post Treatment Pain Location: Leg - Right, Leg - Left Post Treatment Pain Description: (Fatigue but no pain) Post Treatment Symptoms: Pt reported that the progression of therex caused fatigue but no increase in pain today. OBJECTIVE MEASURES WITH LEVEL OF FUNCTION: TREATMENT: Therapeutic Exercise: 1: Once [employer] StepOne seat #10 x7 minutes to focus on endurance (Pt provided an update on her conditionand plan of care reviewed.) 2: B forward step ups on 6" step outside // bars 2x10 each with CGA and gait belt 3: repeated sit to stand from chair 2x10 with 11# ball in hands. 4: squats outside // bars 2x10 with gait belt and SBA 6: Seated hip abduction with blue theraband 3x10 7: Seated hip adduction with ball 3x15 8: Seated HS curls with blue theraband 2x10 B Skilled Intervention: Patient was educated in proper exercise technique and purpose for exercises. Skilled judgment was used in selection of appropriate interventions. Correct performance of therapeutic exercises was facilitated with verbal, visual, and tactile cuing. Patient education as noted. Billing KX Modifier : Therapist attests that services rendered are medically necessary. Therapeutic Exercise Treatment Minutes: 40 Skilled Treatment Time Minutes (timed and untimed codes): 40 Total Session Time (minutes): 40 Session Start Time : 1047 Session Stop Time : 1127 Gerardo Davis PT documented in this encounter[facility]06-[facility]24 Telephone encounter Note * Telephone Encounter - Frank Jyoa LPN - 03/19/2024 3:48 PM EDT Ivett @ [facility] pharmacy notified. Frank Joya LPN [facility]06-07-2024 Miscellaneous Notes* Telephone Encounter - Frank Joya LPN - 03/19/2024 3:48 PM EDT Ivett @ [facility] pharmacy notified. Frank Joya LPN * Telephone Encounter - Radha Batista APRN.CNP - 03/19/2024 3:29 PM EDT Actually, changed the insulin to just three times daily with meals. Can please let pharmacy know. Radha Batista APRN.PAVITHRA * Telephone Encounter - Anusha Hansen, JAH - 03/19/2024 3:10 PM EDT Ivett with [facility] calls to request updated orders for lancets, test strips, and pen needles. She said per insurance coverage if she is using the sliding scale insulin 4 times daily then ordersfor test strips should be 4 times daily and so they dispense enough pen needles asking for order joe for 5 x daily for basaglar and lispro. Pended requests for review. Please advise. Anusha Hansen, JAH documented in this encounterEast [facility]06-07-2024 Telephone encounter Note * Telephone Encounter - Delfina Burns LPN - 03/19/2024 3:29 PM EDT Caregiver given below information. [facility]06-07-[facility] Telephone encounter Note* Telephone Encounter - Radha Batista APRN.CNP - 03/19/2024 3:29 PM EDT Actually, changed the insulin to just three times daily with meals. Can please let pharmacy know. Radha Batista APRN.CNP [facility]06-07-2024 Miscellaneous Notes* Telephone Encounter - Delfina Burns LPN - 03/19/2024 3:29 PM EDT Caregiver given below information. * Telephone Encounter - Frank Joya LPN - 03/19/2024 2:31 PM EDT SHWETHA Crook to return call to office. Please notify of the following when she returns call to office. Increase Basaglar to 60units at 4pm. Restart Humalog per sliding scale. Check sugars three times daily and call with readings in 1 week. Frank Joya LPN * Telephone Encounter - Radha Batista APRN.PAVITHRA - 03/19/2024 2:24 PM EDT Can we please call the assisted living and review new orders with them. (The computer system was down at the time of the office visit and was unable to complete at that time). New orders have been sent to [facility]. Please call us with sugars in 1 week after updating her medication regimen and with status update. Radha Batista APRN.PAVITHRA * Telephone Encounter - Alma Smart RN - 03/18/2024 12:45 PM EDT [facility]- returned call. Given message from PT. Ambreen reports patient is eating right now and patient reports she is hungry. Reports patient went out to eat this morning and had eggs, boogie, toast, and hashbrowns. Ambreen asked patient if she is feeling ok. Patient states she is feeling better since she is home. Reports she was anxious at therapy - reports she likes therapy, but theydon't understand her when she is not feeling good. Ambreen reports patient has been more anxious when leaving the home lately, and patient does take medication for anxiety. Patient is feeling less anxious now that she is at home. Patient states her legs feel weak. Ambreen reports patient is walkingok. No swelling in legs, no fever-97.7, no illness going on, no diarrhea. Ambreen reports patient is not having heavy breathing now that she is at home, so may be related to her anxiety. Ambreen reports patient has been elevated lately, last night 267, this morning 167. Reports basaglar is a new medication for patient for the past 3 weeks. Patient agreeable to schedule appt with provider, states she only wants to see Radha. Schedule appt for tomorrow with Radha. * Telephone Encounter - Adrianne Saldivar LPN - 03/18/2024 12:16 PM EDT Left a message with long [facility] for someone to call and speak with nurse. * Telephone Encounter - Aleksandar Jones MD - 03/18/2024 12:07 PM EDT See below. Can we triage. Likely needs to see one of us * Telephone Encounter - Aleksandar Jones MD - 03/18/2024 12:07 PM EDT ----- Message from Jaci Brady PTA sent at 03/18/2024 11:59 AM EDT ----- Regarding: Patyient Not Feeling Well Hello Brenda Mckeon showed up for therapy today, but she was not treated due to her stating that she wasn't feeling well. I got her from the lobby and walked a short distance with her and sat down and she stated that she felt very weak and seemed to be breathing heavy and had a stomach ache. I just wantedto give you a heads up in case she would call into your office or to see if one of your nurses should reach out to her. Thanks, Jaci Brady PTA documented in this encounter[facility]06-07-2024 Telephone encounter Note * Telephone Encounter - Anusha Hnasen RN - 03/19/2024 3:10 PM EDT Ivett with [facility] calls to request updated orders for lancets, test strips, and pen needles. She said per insurance coverage if she is using the sliding scale insulin 4 times daily then ordersfor test strips should be 4 times daily and so they dispense enough pen needles asking for order joe for 5 x daily for basaglar and lispro. Pended requests for review. Please advise. Anusha Hansen, RN [facility]06-07-2024 Telephone encounter Note* Telephone Encounter - Frank Joya LPN - 03/19/2024 2:31 PM EDT LM with [facility] to return call to office. Please notify of the following when she returns call to office. Increase Basaglar to 60units at 4pm. Restart Humalog per sliding scale. Check sugars three times daily and call with readings in 1 week. Frank Joya LPN [facility]06-07-2024 Telephone encounter Note* Telephone Encounter - Radha Batista APRN.CNP - 03/19/2024 2:24 PM EDT Can we please call the assisted living and review new orders with them. (The computer system was down at the time of the office visit and was unable to complete at that time). New orders have been sent to [facility]. Please call us with sugars in 1 week after updating her medication regimen and with status update. Radha Batista APRN.PAVITHRA [facility] History of Present illness Narrative* Radha Batista APRN.PAVITHRA - 03/19/2024 8:50 AM EDT This is a 58 year old female who presents today with: Patient presents with: Acute Visit: Weakness/pale in color yesterday (see PT note) HISTORY OF PRESENT ILLNESS: Brenda Le is a 58 year old female. Patient presents with: Acute Visit: Weakness/pale in color yesterday (see PT note) Computers went down after patient roomed and prior to provider visit. No access to patient's chart during the office visit. Presented w/ caregiver. Pt presents today with complaint of weakness. Refers that when she went to physical therapy yesterday, just after a short walk, she was weak, pale, and legs were weak. PT felt that better to not proceed w/ treatment. Caregiver and patient reports that she felt better when she got home. They have noticed that her blood sugars have been higher. In January, her lantus was changed to basaglar and changed from 4:00 Pm to bedtime. They have noticed her sugars running higher since that time. They are requesting to change the time back to the afternoon. We also have discussed restarting the sliding scale. Apparently this has been stopped for some time. We reordered it in February, but it never made it to the [facility] where she lives. PAST MEDICAL HISTORY: PAST MEDICAL HISTORY Diagnosis Date Bilateral pneumonia 07/23/2018 Admit [facility]: pneumococcal suspected, neg culture. 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 MEDICATIONS Current Outpatient Medications Medication Sig insulin lispro (HUMALOG KWIKPEN) 100 unit/mL Sig: Administer Lispro insulin per scale AC breakfast morning, AC lunch, AC dinner, AC bedtime as follows with glucose 150-199 2u, 200-249 3u, 250-299 5u,300-350 8u, 350-399 11u, 400- 449 14u, 450 and above go to ER. Total per day 64u haloperidol (HALDOL) 2 mg tablet Take by mouth. nabumetone (RELAFEN) 500 mg tablet Take 1 tablet by mouth once daily. TAKE WITH FOOD atorvastatin (LIPITOR) 10 mg tablet Take 1 tablet by mouth daily at bedtime. For cholesterol. ferrous sulfate 325 mg (65 mg iron) tablet Take 1 tablet by mouth two times a day with meals. metFORMIN ER (GLUCOPHAGE XR) 500 mg 24 hr tablet Take 2 tablets by mouth two times a day before meals. empagliflozin (JARDIANCE) 10 mg tablet Take 1 tablet by mouth daily with breakfast. insulin glargine (BASAGLAR KWIKPEN U-100 INSULIN) 100 unit/mL (3 mL) Inject 58 Units subcutaneouslydaily at bedtime. potassium chloride ER (KLOR-CON) 20 mEq tablet Take 1 tablet by mouth once daily. sodium chloride-aloe vera (AYR SALINE GEL) nasal spray Use 1 mL in the nose two times a day. docusate sodium (COLACE) 100 mg capsule Take 1 capsule by mouth two times a day. omeprazole (PRILOSEC) 20 mg capsule Take 1 capsule by mouth daily before breakfast. 1/2 hr before meal. Artificial Tear, Hypromellose, (SYSTANE GEL) 0.3 % gel Use 1 Drop in both eyes daily at bedtime. furosemide (LASIX) 20 mg tablet Take 1 tablet by mouth once daily. Lancets lancets Test blood sugar(s) 2 times daily. Dx: Other DM Code E11.21 Insulin: Yes blood sugar diagnostic (BLOOD GLUCOSE TEST) test strip testing twice daily Insulin yes Use as instructed DXE11.21 miconazole nitrate (MONISTAT) 200 mg vaginal suppository Use 1 Suppository vaginally daily at bedtime. For 7 nights. omega-3 fatty acids (FISH OIL CONCENTRATE) 1,000 mg cap Take 1 capsule by mouth once daily. Cholecalciferol, Vitamin D3, 25 mcg (1,000 unit) cap Take 1 capsule by mouth once daily. guaiFENesin (MUCINEX) 600 mg 12 hr tablet Take 2 tablets by mouth two times a day. aspirin, enteric coated (ASPIRIN, ENTERIC COATED) 325 mg EC tablet Take 1 tablet by mouth once daily. Take with food. metoprolol succinate ER (TOPROL XL) 25 mg 24 hr tablet take 1 tablet by mouth every evening pramipexole (MIRAPEX) 0.5 mg tablet Take 0.5 tablets by mouth daily at bedtime. Comp Stocking,Knee,Regular,Med misc Patient to be measured for correct size. 20- 30 mmHg Dx: I50.31 polyethylene glycol 3350 (MIRALAX) 17 gram packet Take 1 Packet by mouth once daily. Dissolve dose in 4 - 8 ounces of liquid and take as directed. fluticasone (FLONASE) 50 mcg/actuation nasal spray Use 2 Sprays in each nostril once daily. Rinse mouth after use. metroNIDAZOLE (METROGEL) 1 % Topical Gel Apply 1 application to affected area once daily. Location:face insulin needles, DISPOSABLE, (PEN NEEDLE) 31 gauge x 5/16" Use one needle per dose. Once per day. INVEGA SUSTENNA 156 mg/mL syrg injection clonazePAM (KLONOPIN) 0.5 mg tablet Take 0.5 mg by mouth three times daily as needed. acetaminophen (TYLENOL EXTRA STRENGTH) 500 mg tablet Take 1-2 tablets by mouth every 8 hours as needed for pain. Blood Pressure Monitor 1 Each twice daily. [...] as instructed once daily. Per Dr. Ramirez COMPOUNDED PRESCRIPTION BIPAP of 09/[address] on [address] oxygen per Dr[address] Ramirez Blood-Glucose Meter (FREESTYLE LITE METER) monitoring kit [...] Types: Cigarettes Quit date: 01/11/2014 Years since quittin.1 Smokeless tobacco: Never Vaping Use Vaping Use: Never used Substance Use Topics Alcohol use: No Drug use: No Comment: marijunan- Teen yrs, but not now EXAM: BP 126/80 Pulse 98 Resp 16 LMP 09/12/2017 SpO2 91% PHYSICAL EXAM: General Appearance: Well appearing, alert, in no acute distress, well-hydrated, well nourished.. Skin: Skin color, texture, turgor normal, no suspicious rashes or lesions. Head: Normocephalic, no masses, lesions, tenderness or abnormalities. Eyes: Anicteric sclera. Extraocular movements are intact. . Lungs: Lungs clear to auscultation. No wheezing, rhonchi, rales.. Heart: RRR without murmur, gallop, or rubs. No ectopy. Neurologic: Gait normal. ASSESSMENT/PLAN: 1. Uncontrolled type 2 diabetes mellitus with hyperglycemia (HCC) - ICD9: 250.02, ICD10: E11.65 (primary diagnosis) - INSULIN LISPRO (U-100) 100 UNIT/ML SUBCUTANEOUS PEN - LANCETS - PEN NEEDLE, DIABETIC 31 GAUGE X 5/16" - BLOOD SUGAR DIAGNOSTIC STRIPS - BLOOD-GLUCOSE METER KIT - BASAGLAR KWIKPEN U-100 INSULIN 100 UNIT/ML (3 ML) SUBCUTANEOUS Increase basaglar to 60 units daily at 4:00 PM. Check sugars three times daily before meals and cover with sliding scale (humalog). Call us in sugars in 1 week after starting this regimen. 2. Thrombocytopenia (HCC) - ICD9: 287.5, ICD10: D69.6 Return for recheck. 3. Elevated liver enzymes - ICD9: 790.5, ICD10: R74.8 Return for recheck. Discussed treatment plan and patient voices understanding. Patient's questions answered appropriately. Medications and potential side effects were discussed and patient voices understanding. Return to the office as scheduled or as needed for worsening/no improvement. Radha Batista APRN.TANNING SALON ATTENDANT documented in this encounterEast [facility]06-[facility]-2024 Telephone encounter Note * Telephone Encounter - Alma Smart RN - 03/18/2024 12:45 PM EDT [facility]- returned call. Given message from PTMeghan Crook reports patient is eating right now and patient reports she is hungry. Reports patient went out to eat this morning and had eggs, boogie, toast, and hashbrowns. Ambreen asked patient if she is feeling ok. Patient states she is feeling better since she is home. Reports she was anxious at therapy - reports she likes therapy, but theydon't understand her when she is not feeling good. Ambreen reports patient has been more anxious when leaving the home lately, and patient does take medication for anxiety. Patient is feeling less anxious now that she is at home. Patient states her legs feel weak. Ambreen reports patient is walkingok. No swelling in legs, no fever-97.7, no illness going on, no diarrhea. Ambreen reports patient is not having heavy breathing now that she is at home, so may be related to her anxiety. Ambreen reports patient has been elevated lately, last night 267, this morning 167. Reports basaglar is a new medication for patient for the past 3 weeks. Patient agreeable to schedule appt with provider, states she only wants to see Radha. Schedule appt for tomorrow with Radha. [facility] Telephone encounter Note* Telephone Encounter - Adrianne Saldivar LPN - 03/18/2024 12:16 PM EDT Left a message with [facility] for someone to call and speak with nurse. [facility] Telephone encounter Note* Telephone Encounter - Aleksandar Jones MD - 03/18/2024 12:07 PM EDT See below. Can we triage. Likely needs to see one of us [facility] Telephone encounter Note* Telephone Encounter - Aleksandar Jones MD - 03/18/2024 12:07 PM EDT ----- Message from Jaci Brady PTA sent at 03/18/2024 11:59 AM EDT ----- Regarding: Patyient Not Feeling Well Hello Brenda Mckeon showed up for therapy today, but she was not treated due to her stating that she wasn't feeling well. I got her from the lobby and walked a short distance with her and sat down and she stated that she felt very weak and seemed to be breathing heavy and had a stomach ache. I just wantedto give you a heads up in case she would call into your office or to see if one of your nurses should reach out to her. Thanks, Jaci Brady PTA [facility]06[facility] History of Present illness Narrative* Je Ty, PT - 03/18/2024 11:53 AM EDT Pt arrived to therapy, but was not seen for a treatment today. Pt stated she was not feeling well (felt very weak and achy and had a stomach ache) and had a pale color to her face.Communicated with pt's nurse care manager that is was in the best interest of the pt to not complete a treatment today. MELINDA Del Toro PT documented [facility] History of Present illness Narrative* Gerardo Davis, PT - 03/16/2024 11:15 PM EDT Images from the original note were not included. Episode Visit Count: 12 Therapist That Will Accept/Oversee The Plan Of Care: Gerardo Davis PT Start of Care Date: 01/21/24 Onset Date: 11/22/23 Plan of Care Certification Date: 03/16/24 Next Certification Due Date: 04/13/24 Patient Identified by Name and Date of : Yes REHABILITATION AND SPORTS THERAPY PHYSICAL THERAPY PROGRESS REPORT PLAN OF CARE UPDATE: Assessment: Brenda Le demonstrates moderate improvement in rising from a chair, standing, and walking. Shehas progressed toward goals. Patient continues to present with impairments in ADL's, gait, independence in exercise, overall function, strength, symptom management, and endurance that interfere with stair negotiation, sleeping, walking . Current prognosis is Good due to: current objective clinical presentation, positive past response to therapy, within- session changes, good support system/ copingskills, Prognosis may be limited due to poor understanding of deficits, learning impairments, education level . She will benefit from continued skilled therapy services to meet the updated goals for this plan of care as noted below. Updated: 02/19/24 and 03/16/24 Goals for Episode of Care: created on 01/21/24 through 03/03/24 Independent in home exercises. - MET, will continue and progress to tolerance prn Patient will decrease pain to 0/10 at rest and with functional activities to allow patient to improve ambulation, transfers, and standing tolerance for ADLs. - Partially MET, will continue Stand / Walk without limitations, without pain/symptoms. - Partially MET, will continue Sleep through night without pain/symptoms. - Partially MET, will continue Patient will increase strength of core and postural muscles to WFL to allow for improved ability to complete ADLs and tolerate positions and ambulation. - Partially MET, will continue Improve score on Timed Up and Go Test to 7.24 seconds to reflect decreased fall risk. - MET, will monitor (currently 6.55 seconds) Patient Goals: get rid of pain and make legs stronger - Partially MET, will continue Patient Goals: get rid of pain and make legs stronger Planned Interventions, Frequency, and Duration: 2x/week, 4 weeks Total Number of Visits Planned: 8 Patient to be seen for Therapeutic exercise (75059), Neuromuscular re-education (14016), Manual therapy (30282), Therapeutic activities (00953), Self-senior care management (97313), Gait Training (60889), Patient/Family/Caregiver Education, Body Mechanics Training, General Conditioning, Functional training PLAN FOR NEXT VISIT: Continue with standing exercises as tolerated, functional strengthening, and balance. Classification Pain Mechanism Classification: Neuropathic Low Back Pain Classification: Movement Control SUBJECTIVE: Pt feels that overall she is better. She feels that she is walking better but still gets tired and weak with prolonged standing. She reports having significant pain in R LE last night butcurrently she is denying pain. She reports that she has not been compliant with HEP. She does feel that her standing tolerance has increased but is still limited. Seh reports that pain continues to interfere with her sleep. Patient Goals: get rid of pain and make legs stronger Functional Limitations: stair negotiation, sleeping, walking Prior Level of Function: Independent without limitations Intake Information: Prescription present Pain: Pain Pain Level: 0 Description: (no pain to start today) Frequency: Intermittent Post Treatment Pain Post Treatment Pain Level: No Change Post Treatment Pain Location: Leg - Right, Leg - Left Post Treatment Symptoms: After session pt reported mild fatigue but denied any increase in pain. PROMIS Scales 02/19/2024 01/21/2024 Higher is Better Phys Func - Score 38 (moderate dysfunction) 39 (moderate dysfunction) Phys Func - Percentile 12 14 Self-Eff Symptom - Score 41 (Average) 41 (Average) Self-Eff Symptom - Percentile 18 18 T-scores: mean of general population = 50. 5 points is clinically meaningfully difference Percentiles provide an indication of how the patient's score ranks in relation to the general population. Higher percentile rankings indicate better function/quality of life. 50th percentile is the average of the general population and indicates half of respondents had a worse score. OBJECTIVE MEASURES WITH LEVEL OF FUNCTION: Posture / Alignment Posture: Forward head, Increased thoracic kyphosis, Rounded shoulders LE Strength Trunk Strength: Has been addressed and is improving but still limited R LE Strength: Has been addressed and is improving but still limited L LE Strength: Has been addressed and is improving but still limited Gait Gait Observation: Quality of pt's gait is improved. She is now taking larger, higher and faster steps with less shuffling and improved posture. Some shuffling persists. Functional Performance Test Results 30 Second Chair Stand Test: 15 reps Timed Up and Go (sec): 6.55 sec TREATMENT: Therapeutic Exercise: 1: SciFit StepOne seat #10 x5 minutes 2: B forward step ups on 6" step in // bars 2x10 each 3: repeated sit to stand from chair 2x15 as part of test and treatment 4: squats in // bars 2x10 5: Green t-band TKE B 3x10 each 6: Seated hip abduction with green theraband 3x10 7: Seated hip adduction with ball 3x10 8: Re-assessment results reviewed with pt and her caregiver. This information was used as rationalefor plan of care recommendations. Skilled Intervention: Patient was educated in proper exercise technique and purpose for exercises. Skilled judgment was used in selection of appropriate interventions. Correct performance of therapeutic exercises was facilitated with verbal and visual cuing. Patient education as noted. Billing KX Modifier : Therapist attests that services rendered are medically necessary. Therapeutic Exercise Treatment Minutes: 45 Skilled Treatment Time Minutes (timed and untimed codes): 45 Total Session Time (minutes): 45 Session Start Time : 1132 Session Stop Time : 1217 Gerardo Davis PT documented [facility] Telephone encounter Note * Telephone Encounter - Rolf Herrera DO - 03/12/2024 3:01 PM EDT Greg I was called last evening by nurse front end developer designer regarding your patient who lives at a long term and is currently on medication for diabetes including Jardiance, metformin and insulin at 58 units at bedtime. Her insulin is Basaglar. None nursing staff personnel gave me a call letting me know her evening blood sugar was 290. It seems the patient's fasting blood sugars are in the 140s and evening blood sugars range from 2 20-2 50. Please note that the patient had eaten cookies around 5 or 6 PM last evening that likely accounted for the increase in blood sugar at 290 that I was called about. I made no changes in the patient's medication and left that up to you as to whether you would make any changes based on you knowing the patient. Certainly I made my recommendations to have the patient comply with a diabetic diet and avoid simple sugars. All the best Thank you Rolf [facility] Work Phone: [phone] 481-798605-31-2024 Miscellaneous Notes* Telephone Encounter - Rolf Herrera DO - 03/12/2024 3:01 PM EDT Greg I was called last evening by nurse front end developer designer regarding your patient who lives at a long term and is currently on medication for diabetes including Jardiance, metformin and insulin at 58 units at bedtime. Her insulin is Basaglar. None nursing staff personnel gave me a call letting me know her evening blood sugar was 290. It seems the patient's fasting blood sugars are in the 140s and evening blood sugars range from 2 20-2 50. Please note that the patient had eaten cookies around 5 or 6 PM last evening that likely accounted for the increase in blood sugar at 290 that I was called about. I made no changes in the patient's medication and left that up to you as to whether you would make any changes based on you knowing the patient. Certainly I made my recommendations to have the patient comply with a diabetic diet and avoid simple sugars. All the best Thank you Rolf [facility] Telephone encounter Note * Telephone Encounter - Cristal White RN - 03/05/2024 4:15 PM EDT Melony Pts guardian called and is notified of providers results and instructions. She voices understanding. Faxed copy of Pts medication list and lab orders to her at fax # [phone]. Cristal White RN [facility]05-24-2024 Miscellaneous Notes* Telephone Encounter - Cristal White RN - 03/05/2024 4:15 PM EDT Melony Pts guardian called and is notified of providers results and instructions. She voices understanding. Faxed copy of Pts medication list and lab orders to her at fax # [phone]. Cristal White RN * Telephone Encounter - Radha Batista APRN.CNP - 03/05/2024 1:16 PM EDT Can please let patient/caregiver know that I received her test results. Her A1C went up to 7.4. Can we please resume the sliding scale that she was previously on? I don't see on our end where this was ever discontinued. Her liver enzymes were just a little elevated. Her platelets were just a little low. I would like to recheck these in about 2-4 weeks. Orders are in. Radha Batista APRN.CNP documented in this encounter[facility]05-[facility]24 Telephone encounter Note * Telephone Encounter - Radha Batista APRN.CNP - 03/05/2024 1:16 PM EDT Can please let patient/caregiver know that I received her test results. Her A1C went up to 7.4. Can we please resume the sliding scale that she was previously on? I don't see on our end where this was ever discontinued. Her liver enzymes were just a little elevated. Her platelets were just a little low. I would like to recheck these in about 2-4 weeks. Orders are in. Radha Batista APRN.CNP [facility]05-23-2024 History of Present illness Narrative* Gerardo Davis, PT - 03/04/2024 11:43 AM EDT Episode Visit Count: 11 Therapist That Will Accept/Oversee The Plan Of Care: Gerardo Davis PT Start of Care Date: 01/21/24 Onset Date: 11/22/23 Plan of Care Certification Date: 02/19/24 Next Certification Due Date: 03/18/24 Patient Identified by Name and Date of : Yes REHABILITATION AND SPORTS THERAPY PHYSICAL THERAPY TREATMENT NOTE ASSESSMENT: Brenda Le tolerated the session with fatigue and expected muscle soreness. She demonstrated improvements in endurance with standing exercise today. The patient will continue to benefit from ongoing skilled physical therapy to progress toward set goals. PLAN FOR NEXT VISIT: Continue with standing exercises as tolerated, functional strengthening, and balance. SUBJECTIVE: Pt reports that she is doing okay today. Pt states " I feel like I have weight on my legs today" Pain: Pain Pain Level: (No value given) Pain Location: Leg - Left, Leg - Right Post Treatment Pain Post Treatment Pain Level: No Change Post Treatment Pain Location: Leg - Right, Leg - Left OBJECTIVE MEASURES WITH LEVEL OF FUNCTION: TREATMENT: Therapeutic Exercise: 1: SciFit StepOne seat #10 x5 minutes (1:1 throughout, discussed current status.) 2: B forward step ups on 4" step in // bars 2x10 3: Seated LAQ 2x10 B 4: seated marching 2x10 B 5: repeated sit to stand from table 18 inches tall 2x10 6: Seated hip abduction with green theraband 2x10 7: Seated HS curls with green theraband 2x10 B 8: Seated hip adduction with ball 2x10 9: Standing hip abduction 2x10 B 10: Standing hip extension 2x10 B 11: Standing marching 2x10 B Skilled Intervention: Patient was educated in proper exercise technique and purpose for exercises. Skilled judgment was used in selection of appropriate interventions. Correct performance of therapeutic exercises was facilitated with verbal and visual cuing. Billing Therapeutic Exercise Treatment Minutes: 40 Skilled Treatment Time Minutes (timed and untimed codes): 40 Total Session Time (minutes): 40 Session Start Time : 1144 Session Stop Time : 1224 MELINDA Del Toro PT documented in this encounterEast [facility]05-[facility] History of Present illness Narrative* Gerardo Davis PT - 03/02/2024 3:36 PM EDT Episode Visit Count: 10 Therapist That Will Accept/Oversee The Plan Of Care: Gerardo Davis PT Start of Care Date: 01/21/24 Onset Date: 11/22/23 Plan of Care Certification Date: 02/19/24 Next Certification Due Date: 03/18/24 Patient Identified by Name and Date of : Yes REHABILITATION AND SPORTS THERAPY PHYSICAL THERAPY TREATMENT NOTE ASSESSMENT: Brenda Le tolerated the session with fatigue, expected muscle soreness, and no issues. She demonstrated improvements in exercise tolerance. The patient will continue to benefit from ongoing skilled physical therapy to progress toward set goals. Classification Pain Mechanism Classification: Neuropathic Low Back Pain Classification: Movement Control PLAN FOR NEXT VISIT: Continue with sit to stand and step up exercises if tolerated. Modify therex and balance training to patient tolerance. SUBJECTIVE: Pt reports that overall she is minimally improved. She reports that she is consistentlytired and weak. She reports seeing her referring provider for follow up today and that medicaton changes were made. Pain: Pain Description: (legs are "tired and weak") Frequency: Intermittent Post Treatment Pain Post Treatment Pain Level: No Change Post Treatment Symptoms: pt reported fatigue but denied any increase in pain after session. Pain Mechanism Classification: Neuropathic OBJECTIVE MEASURES WITH LEVEL OF FUNCTION: TREATMENT: Therapeutic Exercise: 1: SciFit StepOne seat #10 x5 minutes 2: Seated LAQ 2x10 B 3: seated marching 2x10 B 4: Seated hip adduction with ball 2x10 5: repeated sit to stand from table 18 inches tall 2x10 6: B forward step ups on 4" step in // bars 2x10 7: Seated hip abduction with green theraband 2x10 8: Seated HS curls with green theraband 2x10 B 9: Pt was advised to follow the instructions on her after visit summary from referring provider in regards to her medication. Skilled Intervention: Patient was educated in proper exercise technique and purpose for exercises. Skilled judgment was used in selection of appropriate interventions. Correct performance of therapeutic exercises was facilitated with verbal and visual cuing. Patient education as noted. Billing Therapeutic Exercise Treatment Minutes: 40 Skilled Treatment Time Minutes (timed and untimed codes): 40 Total Session Time (minutes): 40 Session Start Time : 1445 Session Stop Time : 1525 Gerardo Davis PT documented in this encounter[facility]05-[facility]24 Instructions* Patient Instructions* Radha Batista APRN.CNP - 03/02/2024 9:27 AM EDT Stop the celebrex. Start the relafen. Get labs/urine. Recheck in 1 month, sooner if needed. documented in this encounterEast [facility]05-[facility] History of Present illness Narrative* Radha Batista APRN.CNP - 03/02/2024 9:00 AM EDT This is a 58 year old female who presents today with: Patient presents with: Acute Visit: Complaints of legs feeling heavy since starting celebrex HISTORY OF PRESENT ILLNESS: Brenda Le is a 58 year old female. Patient presents with: Acute Visit: Complaints of legs feeling heavy since starting celebrex Pt presents today with complaint of leg discomfort and feeling tired. Thinks that the celebrex that it is making her legs not feel right. She is aware that medications may be causing fatigue and that any adjustment to medication my make her paranoid. Afraid that if she stops the celebrex, leg pain may be worse. She does have sleep apnea and wears her cpap. Follows with Dr. Boswell and caregiver reports that last visit was 1 or 2 months ago. She does report that she feels rested until she takes her morning pills. She reports that sugars have been running high. Refers that over 200's at night. She continues on the basaglar, but caregiver reports that they haven't been using the sliding scale PAST MEDICAL HISTORY: PAST MEDICAL HISTORY Diagnosis Date Bilateral pneumonia 07/23/2018 Admit [facility]: pneumococcal suspected, neg culture. 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 MEDICATIONS Current Outpatient Medications Medication Sig haloperidol (HALDOL) 2 mg tablet Take by mouth. atorvastatin (LIPITOR) 10 mg tablet Take 1 tablet by mouth daily at bedtime. For cholesterol. empagliflozin (JARDIANCE) 10 mg tablet Take 1 tablet by mouth daily with breakfast. potassium chloride ER (KLOR-CON) 20 mEq tablet Take 1 tablet by mouth once daily. celecoxib (CELEBREX) 200 mg capsule Take 1 capsule by mouth once daily. omeprazole (PRILOSEC) 20 mg capsule Take 1 capsule by mouth daily before breakfast. 1/2 hr before meal. furosemide (LASIX) 20 mg tablet Take 1 tablet by mouth once daily. omega-3 fatty acids (FISH OIL CONCENTRATE) 1,000 mg cap Take 1 capsule by mouth once daily. Cholecalciferol, Vitamin D3, 25 mcg (1,000 unit) cap Take 1 capsule by mouth once daily. guaiFENesin (MUCINEX) 600 mg 12 hr tablet Take 2 tablets by mouth two times a day. aspirin, enteric coated (ASPIRIN, ENTERIC COATED) 325 mg EC tablet Take 1 tablet by mouth once daily. Take with food. metoprolol succinate ER (TOPROL XL) 25 mg 24 hr tablet take 1 tablet by mouth every evening pramipexole (MIRAPEX) 0.5 mg tablet Take 0.5 tablets by mouth daily at bedtime. ferrous sulfate 325 mg (65 mg iron) tablet Take 1 tablet by mouth two times a day with meals. metFORMIN ER (GLUCOPHAGE XR) 500 mg 24 hr tablet Take 2 tablets by mouth two times a day before meals. insulin glargine (BASAGLAR KWIKPEN U-100 INSULIN) 100 unit/mL (3 mL) Inject 58 Units subcutaneouslydaily at bedtime. sodium chloride-aloe vera (AYR SALINE GEL) nasal spray Use 1 mL in the nose two times a day. docusate sodium (COLACE) 100 mg capsule Take 1 capsule by mouth two times a day. Artificial Tear, Hypromellose, (SYSTANE GEL) 0.3 % gel Use 1 Drop in both eyes daily at bedtime. Lancets lancets Test blood sugar(s) 2 times daily. Dx: Other DM Code E11.21 Insulin: Yes blood sugar diagnostic (BLOOD GLUCOSE TEST) test strip testing twice daily Insulin yes Use as instructed DXE11.21 miconazole nitrate (MONISTAT) 200 mg vaginal suppository Use 1 Suppository vaginally daily at bedtime. For 7 nights. insulin lispro (HUMALOG KWIKPEN) 100 unit/mL Sig: Administer Lispro insulin per scale AC breakfast morning, AC lunch, AC dinner, AC bedtime as follows with glucose 150-199 2u, 200-249 3u, 250-299 5u,300-350 8u, 350-399 11u, 400- 449 14u, 450 and above go to ER. Total per day 64u Comp Stocking,Knee,Regular,Med misc Patient to be measured for correct size. 20- 30 mmHg Dx: I50.31 polyethylene glycol 3350 (MIRALAX) 17 gram packet Take 1 Packet by mouth once daily. Dissolve dose in 4 - 8 ounces of liquid and take as directed. fluticasone (FLONASE) 50 mcg/actuation nasal spray Use 2 Sprays in each nostril once daily. Rinse mouth after use. metroNIDAZOLE (METROGEL) 1 % Topical Gel Apply 1 application to affected area once daily. Location:face insulin needles, DISPOSABLE, (PEN NEEDLE) 31 gauge x 5/16" Use one needle per dose. Once per day. INVEGA SUSTENNA 156 mg/mL syrg injection clonazePAM (KLONOPIN) 0.5 mg tablet Take 0.5 mg by mouth three times daily as needed. acetaminophen (TYLENOL EXTRA STRENGTH) 500 mg tablet Take 1-2 tablets by mouth every 8 hours as needed for pain. Blood Pressure Monitor 1 Each twice daily. [...] as instructed once daily. Per Dr. Ramirez COMPOUNDED PRESCRIPTION BIPAP of 09/[address] on [address] Ramirez Blood-Glucose Meter (FREESTYLE LITE METER) monitoring kit [...] Types: Cigarettes Quit date: 01/11/2014 Years since quittin.1 Smokeless tobacco: Never Vaping Use Vaping Use: Never used Substance Use Topics Alcohol use: No Drug use: No Comment: marijunan- Teen yrs, but not now EXAM: BP 108/70 Pulse 93 Resp 16 Wt 81.6 kg (180 lb) LMP 09/12/2017 SpO2 92% BMI 34.01 kg/m PHYSICAL EXAM: General Appearance: Well appearing, alert, in no acute distress, well-hydrated, well nourished.. Skin: Skin color, texture, turgor normal, no suspicious rashes or lesions. Head: Normocephalic, no masses, lesions, tenderness or abnormalities. Eyes: Anicteric sclera. Extraocular movements are intact. . Lungs: Lungs clear to auscultation. No wheezing, rhonchi, rales.. Heart: RRR without murmur, gallop, or rubs. No ectopy. Extremities: No deformities, edema, skin discoloration, clubbing or cyanosis. Good capillary refill. . Neurologic: Gait normal. ASSESSMENT/PLAN: 1. Fatigue, unspecified type - ICD9: 780.79, ICD10: R53.83 (primary diagnosis) Get labs. Compliant w/ cpap. Suspect r/t to the medications used to manage the paranoid schizophrenia. - COMPLETE BLOOD COUNT AND DIFFERENTIAL - COMPREHENSIVE METABOLIC PANEL - MAGNESIUM - THYROID STIMULATING HORMONE - T4 FREE/FREE THYROXINE - FOLATE, SERUM - URINALYSIS, WITH MICROSCOPIC - URINE CULTURE 2. Pain in both lower extremities - ICD9: 729.5, ICD10: M79.604, M79.605 Will stop the Celebrex and trial Relafen. She does feel that physical therapy has been helpful. 3. Type 2 diabetes mellitus with diabetic nephropathy, with long-term current use of insulin (HCC) - ICD9: 250.40, 583.81, V58.67, ICD10: E11.21, Z79.4 Will check labs. Reports that sugars been running higher and caregiver reports that they have been using sliding scale in some time. Question if worsening neuropathy. - HEMOGLOBIN A1C - URINALYSIS, WITH MICROSCOPIC - URINE CULTURE Discussed treatment plan and patient voices understanding. Patient's questions answered appropriately. Medications and potential side effects were discussed and patient voices understanding. Return to the office as scheduled or as needed for worsening/no improvement. Radha Batista APRN.TANNING SALON ATTENDANT documented in this encounterEast [facility]05-[facility] History of Present illness Narrative* Gerarod Davis PT - 02/26/2024 10:46 AM EDT Episode Visit Count: 9 Therapist That Will Accept/Oversee The Plan Of Care: Gerardo Davis PT Start of Care Date: 01/21/24 Onset Date: 11/22/23 Plan of Care Certification Date: 02/19/24 Next Certification Due Date: 03/18/24 Patient Identified by Name and Date of : Yes REHABILITATION AND SPORTS THERAPY PHYSICAL THERAPY TREATMENT NOTE ASSESSMENT: Brenda Le tolerated the session with decreased activity tolerance due to unknown cause, decreased endurance, and fatigue. She demonstrated difficulty with therex but denied any worsening after therex. The patient will continue to benefit from ongoing skilled physical therapy to prog ress toward set goals. Classification Pain Mechanism Classification: Neuropathic Low Back Pain Classification: Movement Control PLAN FOR NEXT VISIT: Continue with PT plan pending recommendations from referring provider. Modify therex and balance training to patient tolerance. Attempt sit to stand and step up exercises if tolerated. SUBJECTIVE: Pt reports that her legs are "still bothering me and I am very tired." She wonders if this is caused by a medication. She denies any worsening of symptoms with PT sessions. She reports that these symptoms in her legs are intermittent without any specific pattern. For example, she felt fine at 5:00am today but at 7:00am she was tired and her legs were bothering her. She reports that she typically feels better after attendance in PT sessions. She reports that she has not noticed any improvements with her current medication. Pain: Pain Pain Level: 0 Description: (no pain, just general fatigue all over.) Frequency: Intermittent Post Treatment Pain Post Treatment Pain Level: No Change Post Treatment Symptoms: During and after session pt continued to report fatigue in general but shedenied any worsening of her condition secondary to the PT session. Pain Mechanism Classification: Neuropathic OBJECTIVE MEASURES WITH LEVEL OF FUNCTION: TREATMENT: Therapeutic Exercise: 1: Once [employer] StepOne seat #10 x5 minutes (Pt provided an update on her condition and pt response to treatment assessed.) 2: Seated LAQ 2x10 B 3: seated marching 2x10 4: Seated hip adduction with ball 2x10 5: Seated hip abduction with pink theraband 2x10 6: Seated HS curls with pink theraband 2x10 B 7: Pt was encouraged to reach out to referring provider about her persistent fatigue. Skilled Intervention: Patient was educated in proper exercise technique and purpose for exercises. Skilled judgment was used in selection of appropriate interventions. Correct performance of therapeutic exercises was facilitated with verbal, visual, and tactile cuing. Billing Therapeutic Exercise Treatment Minutes: 28 Skilled Treatment Time Minutes (timed and untimed codes): 28 Total Session Time (minutes): 28 Session Start Time : 1005 Session Stop Time : 1033 Gerardo Davis PT [facility] Tele[facility] encounter Note * Telephone Encounter - Edel East RN - 02/24/2024 1:16 PM EDT Patient has been identified by name and date of : Pharmacy phones for refill(s): Requested Prescriptions Pending Prescriptions Disp Refills atorvastatin (LIPITOR) 10 mg tablet 30 tablet 5 Sig: Take 1 tablet by mouth daily at bedtime. For cholesterol. ferrous sulfate 325 mg (65 mg iron) tablet 120 tablet 5 Sig: Take 1 tablet by mouth two times a day with meals. metFORMIN ER (GLUCOPHAGE XR) 500 mg 24 hr tablet 360 tablet 3 Sig: Take 2 tablets by mouth two times a day before meals. empagliflozin (JARDIANCE) 10 mg tablet 30 tablet 3 Sig: Take 1 tablet by mouth daily with breakfast. Date of last office visit in primary care: 01/13/2024 Date of next office visit in primary care: 05/04/2024 Please advise. Thank you. Edel East RN. [facility] Miscellaneous Notes* Telephone Encounter - Edel East RN - 02/24/2024 1:16 PM EDT Patient has been identified by name and date of : Pharmacy phones for refill(s): Requested Prescriptions Pending Prescriptions Disp Refills atorvastatin (LIPITOR) 10 mg tablet 30 tablet 5 Sig: Take 1 tablet by mouth daily at bedtime. For cholesterol. ferrous sulfate 325 mg (65 mg iron) tablet 120 tablet 5 Sig: Take 1 tablet by mouth two times a day with meals. metFORMIN ER (GLUCOPHAGE XR) 500 mg 24 hr tablet 360 tablet 3 Sig: Take 2 tablets by mouth two times a day before meals. empagliflozin (JARDIANCE) 10 mg tablet 30 tablet 3 Sig: Take 1 tablet by mouth daily with breakfast. Date of last office visit in primary care: 01/13/2024 Date of next office visit in primary care: 05/04/2024 Please advise. Thank you. Edel East RN. [facility] History of Present illness Narrative* Jacquietwin Gerardo, PT - 02/24/2024 11:04 AM EDT Episode Visit Count: 8 Therapist That Will Accept/Oversee The Plan Of Care: Gerardo Davis PT Start of Care Date: 01/21/24 Onset Date: 11/22/23 Plan of Care Certification Date: 02/19/24 Next Certification Due Date: 03/18/24 Patient Identified by Name and Date of : Yes REHABILITATION AND SPORTS THERAPY PHYSICAL THERAPY TREATMENT NOTE ASSESSMENT: Brenda Le tolerated the session with decreased activity tolerance due to pt feeling like her legs were weaker today. She demonstrated difficulty with prolonged standing exercises. The patient will continue to benefit from ongoing skilled physical therapy to progress toward set goals. PLAN FOR NEXT VISIT: Consider balance training per symptoms of LE. Continue with LE strengthening. SUBJECTIVE: Pt states, "my legs feel kind of funny, like I can't walk". At 4p.m. every day her R knee hurts really bad, tried her exercises to ease the pain but unsure if it helps or not. Pt states both legs ache throughout the day. Pt taking Celebrex and questioning if that could be affecting her legs. Pain: Pain Pain Location: Leg - Right, Leg - Left Description: (weakness) Post Treatment Pain Post Treatment Pain Location: Leg - Left, Leg - Right Post Treatment Symptoms: At end of session, pt stated her legs were tired. OBJECTIVE MEASURES WITH LEVEL OF FUNCTION: Decreased gait speed this visit. TREATMENT: Therapeutic Exercise: 1: [employer] StepOne seat #10 x6 minutes (1:1 throughout, discussed LE symptoms throughout the day.) 2: Step ups on 4 inch step 2x10 B (made legs feel weak.) 3: Standing hip abduction x10 B 4: Seated LAQ 2x12 B 5: Seated hip adduction with ball 3x12 6: seated marching 2x12 7: Seated HS curls with pink theraband 2x10 B 8: Seated hip abduction with pink theraband 2x10 Skilled Intervention: Patient was educated in proper exercise technique and purpose for exercises. Skilled judgment was used in selection of appropriate interventions. Correct performance of therapeutic exercises was facilitated with verbal and visual cuing. Billing Therapeutic Exercise Treatment Minutes: 40 Skilled Treatment Time Minutes (timed and untimed codes): 40 Total Session Time (minutes): 40 Session Start Time : 1100 Session Stop Time : 1140 Jaci Durantje, SHEET METAL APPRENTICE Gerardo Davis PT [facility] History of Present illness Narrative* Gerardo Davis PT - 02/19/2024 11:47 AM EDT Images from the original note were not included. Episode Visit Count: 7 Therapist That Will Accept/Oversee The Plan Of Care: Gerardo Davis PT Start of Care Date: 01/21/24 Onset Date: 11/22/23 Plan of Care Certification Date: 02/19/24 Next Certification Due Date: 03/18/24 Patient Identified by Name and Date of : Yes REHABILITATION AND SPORTS THERAPY PHYSICAL THERAPY PROGRESS REPORT PLAN OF CARE UPDATE: Assessment: Brenda Le demonstrates moderate improvement in rising from a chair, walking, and sleeping. Shehas progressed toward goals. Patient continues to present with impairments in ADL's, balance, gait,independence in exercise, overall function, posture, strength, and symptom management that interfere with stair negotiation, sleeping, walking . Current prognosis is Good due to: current objective clinical presentation, positive past response to therapy, within- session changes, good support system/coping skills. She will benefit from continued skilled therapy services to meet the updated goals for this plan of care as noted below. Updated: 02/19/24 Goals for Episode of Care: created on 01/21/24 through 03/03/24 Independent in home exercises. - MET, will continue and progress to tolerance prn Patient will decrease pain to 0/10 at rest and with functional activities to allow patient to improve ambulation, transfers, and standing tolerance for ADLs. - Partially MET, will continue Stand / Walk without limitations, without pain/symptoms. - Partially MET, will continue Sleep through night without pain/symptoms. - Partially MET, will continue Patient will increase strength of core and postural muscles to WFL to allow for improved ability to complete ADLs and tolerate positions and ambulation. - Partially MET, will continue Improve score on Timed Up and Go Test to 7.24 seconds to reflect decreased fall risk. - Partially MET, will continue (currently 7.9 seconds) Patient Goals: get rid of pain and make legs stronger - Partially MET, will continue Patient Goals: get rid of pain and make legs stronger Planned Interventions, Frequency, and Duration: 2x/week, 4 weeks Total Number of Visits Planned: 8 Patient to be seen for Therapeutic exercise (79887), Neuromuscular re-education (05563), Manual therapy (68984), Therapeutic activities (29084), Self-senior care management (21838), Gait Training (26564), Patient/Family/Caregiver Education, Body Mechanics Training, General Conditioning, Functional training PLAN FOR NEXT VISIT: Continue with LE strengthening, gait and balance to improve functional mobility and discomfort. Classification Low Back Pain Classification: Movement Control SUBJECTIVE: Pt reports that overall she is better and having fewer symptoms. She reports that she still has aching pains in her legs in the evening but that it is less. She denies any LE pain to start today. She reports that she is sleeping better but that her sleep is still interrupted "somoetimes" by LE symptoms. She reports and demonstrates increased standing and walking tolerance. She reports compliance with HEP 1x day usually. She reports functional LE weakness on stairs. Patient Goals: get rid of pain and make legs stronger Functional Limitations: stair negotiation, sleeping, walking Prior Level of Function: Independent without limitations Intake Information: Prescription present Pain: Pain Pain Level: 0 (5/10 at worst in the evening when she is attempting to rest) Pain Location: Leg - Right, Leg - Left Description: Aching Frequency: Intermittent Post Treatment Pain Post Treatment Pain Level: No Change Post Treatment Symptoms: After session pt reported some fatigue but denied any increased pain or problems. Pain Mechanism Classification: Neuropathic PROMIS Scales 02/19/2024 01/21/2024 Higher is Better Phys Func - Score 38 (moderate dysfunction) 39 (moderate dysfunction) Phys Func - Percentile 12 14 Self-Eff Symptom - Score 41 (Average) 41 (Average) Self-Eff Symptom - Percentile 18 18 T-scores: mean of general population = 50. 5 points is clinically meaningfully difference Percentiles provide an indication of how the patient's score ranks in relation to the general population. Higher percentile rankings indicate better function/quality of life. 50th percentile is the average of the general population and indicates half of respondents had a worse score. OBJECTIVE MEASURES WITH LEVEL OF FUNCTION: Posture / Alignment Posture: Forward head, Increased thoracic kyphosis, Rounded shoulders LE Strength R LE Strength: Pt reports subjective increase in LE strength but also continues to reports functional weakness on stairs and with evening activities. L LE Strength: Pt reports subjective increase in LE strength but also continues to reports functional weakness on stairs and with evening activities. Gait Gait Observation: Quality of pt's gait is improved. She is now taking larger, higher and faster steps with less shuffling and improved posture. Functional Performance Test Results Timed Up and Go (sec): 7.9 sec TREATMENT: Therapeutic Exercise: 1: [employer] StepOne seat #10 x6 minutes (1:1 throughout, discussed current exercises) 2: B SKTC x30 seconds 3: DKTC x30 seconds 4: supine LTR 2x10 5: supine isometric abdominal exercise via shoulder extension 2 second holds 2x10 6: supine bridging 2x10 7: *Repated sit to stand from mat table 18 inches high 2x10 8: seated marching 2x10 9: Seated LAQ 2x10 B 10: B forward step ups on 4 inch step in // bars 2x10 each 11: Re-assessment results shared with patient and caregiver and this information was used as rationale for plan of care recommendations. Skilled Intervention: Patient was educated in proper exercise technique and purpose for exercises. Reviewed and educated patient on additions/changes for home exercise program as above (*). Skilled judgment was used in selection of appropriate interventions. Provided written instruction for home exercise program to facilitate proper performance and compliance. Correct performance of therapeutic exercises was facilitated with verbal, visual, and tactile cuing. Patient education as noted. Billing Therapeutic Exercise Treatment Minutes: 47 Skilled Treatment Time Minutes (timed and untimed codes): 47 Total Session Time (minutes): 47 Session Start Time : 916 Session Stop Time : 1003 Gerardo Davis PT * Gerardo Davis PT - 02/19/2024 9:55 AM EDT Program_ID:[id number] Access Code: [email or web address] URL: [email or web address]/ Date: 02-19-2024 Prepared By: Gerardo Davis Program Notes Exercises - Hooklying Single Knee to Chest Stretch - 3 x daily - 7 x weekly - sets - 3 reps - Supine Double Knee to Chest Modified - 1 x daily - 7 x weekly - sets - 3 reps - Supine Lower Trunk Rotation - 2 x daily - 7 x weekly - 2 sets - 10 reps - Seated Long Arc Quad - 2 x daily - 7 x weekly - 2 sets - 10 reps - Seated March - 2 x daily - 7 x weekly - 2 sets - 10 reps - Sit to Stand - 1 x daily - 7 x weekly - 2 sets - 10 reps [facility] History of Present illness Narrative* Jaci Brady PTA - 02/17/2024 9:07 AM EDT Program_ID:[id number] Access Code: [email or web address] URL: [email or web address]/ Date: 02-17-2024 Prepared By: Gerardo Davis Program Notes Exercises - Hooklying Single Knee to Chest Stretch - 3 x daily - 7 x weekly - sets - 3 reps - Supine Double Knee to Chest Modified - 1 x daily - 7 x weekly - sets - 3 reps - Supine Lower Trunk Rotation - 2 x daily - 7 x weekly - 2 sets - 10 reps - Seated Long Arc Quad - 2 x daily - 7 x weekly - 2 sets - 10 reps - Seated March - 2 x daily - 7 x weekly - 2 sets - 10 reps * Gerardo Davis, PT - 02/17/2024 8:48 AM EDT Episode Visit Count: 6 Therapist That Will Accept/Oversee The Plan Of Care: Gerardo Davis PT Start of Care Date: 01/21/24 Onset Date: 11/22/23 Plan of Care Certification Date: 01/21/24 Next Certification Due Date: 03/03/24 Patient Identified by Name and Date of : Yes REHABILITATION AND SPORTS THERAPY PHYSICAL THERAPY TREATMENT NOTE ASSESSMENT: Brenda Le tolerated the session with fatigue and expected muscle soreness. She demonstrated improvements in tolerance to standing exercise before needing a seated rest break. The patient will continue to benefit from ongoing skilled physical therapy to progress toward set goals. PLAN FOR NEXT VISIT: Continue with LE strengthening and balance SUBJECTIVE: Pt reports that she is tired and her legs feel weak today. Pt states that she has been up since 2 A.M. this morning , just couldn't sleep. Pain: Pain Pain Level: 0 OBJECTIVE MEASURES WITH LEVEL OF FUNCTION: Pt's BLE easily fatigued this visit. TREATMENT: Therapeutic Exercise: 1: [employer] StepOne seat #10 x5 minutes (1:1 throughout, discussed current exercises) 2: Standing hip abduction x10 B 3: Standing alt LE marching x 5 B 4: Step ups on 4 inch step 2x10 B in // bars 5: *Seated LAQ 2x10 B 6: *Seated marching, not perfomed but given for HEP 7: Seated hip adduction with ball 2x10 8: Repated sit to stand from mat table 18 inches high 2x10 9: supine bridging 2x10 10: supine isometric abdominal exercise via shoulder extension 2 second holds 2x10 Skilled Intervention: Patient was educated in proper exercise technique and purpose for exercises. Reviewed and educated patient on additions/changes for home exercise program as above (*). Skilled judgment was used in selection of appropriate interventions. Provided written instruction for home exercise program to facilitate proper performance and compliance. Correct performance of therapeutic exercises was facilitated with verbal and visual cuing. Billing Therapeutic Exercise Treatment Minutes: 38 Skilled Treatment Time Minutes (timed and untimed codes): 38 Total Session Time (minutes): 38 Session Start Time : 844 Session Stop Time : 922 MELINDA Del Toro PT documented [facility] History of Present illness Narrative* Gerardo Davis PT - 02/12/2024 9:39 AM EDT Episode Visit Count: 5 Therapist That Will Accept/Oversee The Plan Of Care: Gerardo Davis PT Start of Care Date: 01/21/24 Onset Date: 11/22/23 Plan of Care Certification Date: 01/21/24 Next Certification Due Date: 03/03/24 Patient Identified by Name and Date of : Yes REHABILITATION AND SPORTS THERAPY PHYSICAL THERAPY TREATMENT NOTE ASSESSMENT: Brenda Le tolerated the session with fatigue and expected muscle soreness. She demonstrated improvements in enduramce with exercise. The patient will continue to benefit from ongoingskilled physical therapy to progress toward set goals. PLAN FOR NEXT VISIT: Consider more standing exercise per pt's tolerance and endurance SUBJECTIVE: Pt reports that she has a tricycle at home and tried it for 5 minutes and was really tired afterwards. Pt denies any pain to start todays session. Pain: Pain Pain Level: 0 Post Treatment Pain Post Treatment Pain Level: 0 OBJECTIVE MEASURES WITH LEVEL OF FUNCTION: Good form with standing hip abduction. TREATMENT: Therapeutic Exercise: 1: [employer] StepOne seat #10 x5 minutes (1:1 throughout, discussed use of tricycle and HEP. At end ptstated' My legs feel like jell-o") 2: supine LTR 2x10 3: supine B SKTC x30 seconds (with use of bed sheet) 4: supine DKTC x30 seconds (with use of bed sheet) 5: supine bridging 2x10 6: supine isometric abdominal exercise via shoulder extension 2 second holds 2x10 7: B forward step ups on 4 inch step in // bars 2x10 each 8: Standing hip abduction at // bars 2x10 B 9: Seated LAQ x20 B 10: Repated sit to stand from mat table 18 inches high 2x10 11: Seated LE marching x20 B Skilled Intervention: Patient was educated in proper exercise technique and purpose for exercises. Skilled judgment was used in selection of appropriate interventions. Correct performance of therapeutic exercises was facilitated with verbal and visual cuing. Billing Therapeutic Exercise Treatment Minutes: 38 Skilled Treatment Time Minutes (timed and untimed codes): 38 Total Session Time (minutes): 38 Session Start Time : 929 Session Stop Time : 1008 MELINDA Del Toro PT documented in [facility] History of Present illness Narrative* Gerardo Davis, PT - 02/10/2024 3:34 PM EDT Episode Visit Count: 4 Therapist That Will Accept/Oversee The Plan Of Care: Gerardo Davis PT Start of Care Date: 01/21/24 Onset Date: 11/22/23 Plan of Care Certification Date: 01/21/24 Next Certification Due Date: 03/03/24 Patient Identified by Name and Date of : Yes REHABILITATION AND SPORTS THERAPY PHYSICAL THERAPY TREATMENT NOTE ASSESSMENT: Brenda Le tolerated the session with fatigue, expected muscle soreness, and no issues. She demonstrated improvements in exercise tolerance. The patient will continue to benefit from ongoing skilled physical therapy to progress toward set goals. Classification Low Back Pain Classification: Symptom Modulation PLAN FOR NEXT VISIT: Continue with core strengthening with flexion preference. Continue with LE strengthening and balance as tolerated. SUBJECTIVE: Pt reports that overall she is feeling slightly better. She reports that her legs stillget painful and weak at times but this is not as bad as it was. She reports compliance with HEP 3x day. She denies any pain or problems after last session. Pain: Pain Pain Level: 0 Post Treatment Pain Post Treatment Pain Level: No Change Post Treatment Symptoms: After session pt reported moderate fatigue but denied any pain, severe fatigue or problems. Pain Mechanism Classification: Neuropathic OBJECTIVE MEASURES WITH LEVEL OF FUNCTION: Posture / Alignment Posture: Forward head, Increased thoracic kyphosis, Rounded shoulders TREATMENT: Therapeutic Exercise: 1: [employer] StepOne seat #10 x5 minutes (Plan of care reviewed and continuation of HEP encouraged to tolerance) 2: supine LTR 2x10 3: supine B SKTC x30 seconds 4: supine DKTC x30 seconds 5: supine isometric abdominal exercise via shoulder extension 2 second holds 2x10 6: heel and toe raises x20 B 7: Seated LE marching x20 B 8: Seated LAQ x20 B 9: B forward step ups on 4 inch step in // bars 2x10 each 10: Repated sit to stand from green mat table 20 inches high 2x10 11: supine bridging 2x10 Skilled Intervention: Patient was educated in proper exercise technique and purpose for exercises. Skilled judgment was used in selection of appropriate interventions. Correct performance of therapeutic exercises was facilitated with verbal, visual, and tactile cuing. Patient education as noted. Billing Therapeutic Exercise Treatment Minutes: 39 Skilled Treatment Time Minutes (timed and untimed codes): 39 Total Session Time (minutes): 39 Session Start Time : 1452 Session Stop Time : 1531 Gerardo Davis PT documented [facility] History of Present illness Narrative* Gerardo Davis PT - 02/05/2024 8:55 AM EDT Episode Visit Count: 3 Therapist That Will Accept/Oversee The Plan Of Care: Gerardo Davis PT Start of Care Date: 01/21/24 Onset Date: 11/22/23 Plan of Care Certification Date: 01/21/24 Next Certification Due Date: 03/03/24 Patient Identified by Name and Date of : Yes REHABILITATION AND SPORTS THERAPY PHYSICAL THERAPY TREATMENT NOTE ASSESSMENT: Brenda Le tolerated the session with fatigue and expected muscle soreness. She demonstrated difficulty with technique with TA activation via shoulder extension. The patient will continue to benefit from ongoing skilled physical therapy to progress toward set goals. PLAN FOR NEXT VISIT: Continue with core strengthening with flexion preference. Continue with LE strengthening and balance as tolerated. SUBJECTIVE: Pt reports that she did not wear her CPAP last night and she feels "funny" today. Unable to describe exactly what she means by "funny". Pt reports that she had some back pain yesterday. Pain: Pain Pain Level: 0 Post Treatment Pain Post Treatment Symptoms: At end of session, pt reported fatigue. OBJECTIVE MEASURES WITH LEVEL OF FUNCTION: Vitals BP: 113/72 Pulse: 95 SpO2: 94 % (increased to 97 with instruction for deep breathing) TREATMENT: Therapeutic Exercise: 1: *pt opted to not use bike this visit due to not feeling the greatest 2: supine LTR 2x10 3: supine B SKTC 3x30 seconds 4: supine DKTC 3x30 seconds 5: supine isometric abdominal exercise via shoulder extension 2 second holds 2x10 6: heel and toe raises x30 B 7: Seated LE marching 2x10 B 8: Seated LAQ 2x10 B 9: Scapular retractions 2x10 10: Repated sit to stand from chair 2x10 11: Hip adduction squeeze with ball 2x10 Skilled Intervention: Patient was educated in proper exercise technique and purpose for exercises. Skilled judgment was used in selection of appropriate interventions. Correct performance of therapeutic exercises was facilitated with verbal and visual cuing. Billing Therapeutic Exercise Treatment Minutes: 40 Skilled Treatment Time Minutes (timed and untimed codes): 40 Total Session Time (minutes): 40 Session Start Time : 846 Session Stop Time : 926 Jaci BradyMELINDA PT documented in [facility] encounter[facility]04-[facility] Telephone encounter Note * Telephone Encounter - Alma Smart, RN - 02/04/2024 4:55 PM EDT Phoned patient and given provider's message below. Patient didn't understand and asked this nurse to give the message to Peg. Reports Peg works there. Gave message to Peg with verbalized understanding. [facility] Miscellaneous Notes* Telephone Encounter - Alma Smart RN - 02/04/2024 4:55 PM EDT Phoned patient and given provider's message below. Patient didn't understand and asked this nurse to give the message to Peg. Reports Peg works there. Gave message to Peg with verbalized understanding. * Telephone Encounter - Aleksandar Jones MD - 02/04/2024 4:27 PM EDT Rx sent. Let her know had to change it * Telephone Encounter - Tonie Escobar MA - 02/04/2024 2:52 PM EDT Insurance faxed letter stating Lantus Solostar no longer covered . Please choose alternative below and send -Basjihanar Raf -Tresiba -Tresiba flextouch Tonie Escobar MA documented in this encounterEast [facility]04-[facility] Telephone encounter Note * Telephone Encounter - Aleksandar Jones MD - 02/04/2024 4:27 PM EDT Rx sent. Let her know had to change it [facility] Telephone encounter Note* Telephone Encounter - Tonie Escobar MA - 02/04/2024 2:52 PM EDT Insurance faxed letter stating Lantus Solostar no longer covered . Please choose alternative below and send -Basaglar Kwikpen -Tresiba -Tresiba flextouch Tonie Escobar MA [facility]04-23-2024 History of Present illness Narrative* Gerardo Davis, СЕРГЕЙ - 02/03/2024 9:35 PM EDT Episode Visit Count: 2 Therapist That Will Accept/Oversee The Plan Of Care: Gerardo Davis PT Start of Care Date: 01/21/24 Onset Date: 11/22/23 Plan of Care Certification Date: 01/21/24 Next Certification Due Date: 03/03/24 Patient Identified by Name and Date of : Yes REHABILITATION AND SPORTS THERAPY PHYSICAL THERAPY TREATMENT NOTE ASSESSMENT: Brenda Le tolerated the session with fatigue, expected muscle soreness, and no issues. She demonstrated improvements in exercise tolerance. The patient will continue to benefit from ongoing skilled physical therapy to progress toward set goals. Classification Low Back Pain Classification: Symptom Modulation PLAN FOR NEXT VISIT: Review, correct and progress HEP to tolerance. Continue with postural stretching and strengthening with flexion directional preference. Consider balance and gait training prn, as well as LE strengthening prn. SUBJECTIVE: Pt reports compliance with HEP 1x day but that overall she is feeling approximately thesame. Pt denies any pain to start today, just that she is real tired today. Pain: Pain Pain Level: 0 Description: (no pain to start today) Post Treatment Pain Post Treatment Pain Level: No Change Post Treatment Symptoms: After session, pt denied any increase in pain but did report fatigue from the therex. Pain Mechanism Classification: Neuropathic OBJECTIVE MEASURES WITH LEVEL OF FUNCTION: Posture / Alignment Posture: Forward head, Increased thoracic kyphosis, Rounded shoulders TREATMENT: Therapeutic Exercise: 1: SciFit StepOne seat #10 x6 minutes (Plan of care reviewed and pt provided an update on her condition.) 2: *supine LTR 2x10 3: supine B SKTC 3x30 seconds 4: supine DKTC 3x30 seconds 5: seated LE therex: heel and toes raises 2x20, marching hip flexion 2x10 and B alt knee ext 2x10 6: repeated sit to stand from mat table 21 inches tall 2x10 7: B forward step ups on 6 inch step and hand rails x10 B 8: supine isometric abdominal exercise via shoulder extension 2 second holds 2x10 Skilled Intervention: Patient was educated in proper exercise technique and purpose for exercises. Reviewed and educated patient on additions/changes for home exercise program as above (*). Skilled judgment was used in selection of appropriate interventions. Provided written instruction for home exercise program to facilitate proper performance and compliance. Correct performance of therapeutic exercises was facilitated with verbal, visual, and tactile cuing. Patient education as noted. Billing Therapeutic Exercise Treatment Minutes: 38 Skilled Treatment Time Minutes (timed and untimed codes): 38 Total Session Time (minutes): 38 Session Start Time : 1452 Session Stop Time : 1530 Gerardo Davis PT * Gerardo Davis PT - 02/03/2024 3:11 PM EDT Program_ID:[id number] Access Code: [email or web address] URL: [email or web address] Date: 02-03-2024 Prepared By: Gerardo Davis Program Notes Exercises - Hooklying Single Knee to Chest Stretch - 3 x daily - 7 x weekly - sets - 3 reps - Supine Double Knee to Chest Modified - 1 x daily - 7 x weekly - sets - 3 reps - Supine Lower Trunk Rotation - 2 x daily - 7 x weekly - 2 sets - 10 reps [facility] Miscellaneous Notes* Telephone Encounter - Alma Smart RN - 01/29/2024 2:48 PM EDT Patient has been identified by name and date of : Yes, Provider Robert Date 01-29-24 Time 2:49 pm Pharmacy phones for refill(s): Requested Prescriptions Pending Prescriptions Disp Refills potassium chloride ER (KLOR-CON) 20 mEq tablet 30 tablet 5 Sig: Take 1 tablet by mouth once daily. Date of last office visit in primary care: 01/13/2024 Date of next office visit in primary care: 05/04/2024 Please advise. Thank you. Alma Smart RN. documented [facility]04-[facility] History of Present illness Narrative* Gerardo Davis, PT - 01/21/2024 3:39 PM EDT Images from the original note were not included. Episode Visit Count: 1 Therapist That Will Accept/Oversee The Plan Of Care: Gerardo Davis PT Start of Care Date: 01/21/24 Onset Date: 11/22/23 Plan of Care Certification Date: 01/21/24 Next Certification Due Date: 03/03/24 Patient Identified by Name and Date of : Yes REHABILITATION AND SPORTS THERAPY PHYSICAL THERAPY EVALUATION PLAN OF CARE: Assessment: Brenda Le presents with chief complaint of B lower leg weakness and pain that interferes with rising from a chair, walking in the house, sleeping . She presents with impairments in ADL's, balance, gait, overall function, strength, and symptom management. PROMIS (Patient-Reported Outcomes Measurement Information System) scores were reviewed and identified as a rehabilitation concern. Prognosis for therapy is Good due to: current objective clinical presentation, acuteness of condition, good support system/ coping skills, Prognosis may be limited due to poor understanding of deficits, learning impairments, education level. She will benefit from skilled therapy services to meetthe goals established for this plan of care as noted below. Classification Low Back Pain Classification: Symptom Modulation Goals for Episode of Care: created on 01/21/24 through 03/03/24 Independent in home exercises. Patient will decrease pain to 0/10 at rest and with functional activities to allow patient to improve ambulation, transfers, and standing tolerance for ADLs. Stand / Walk without limitations, without pain/symptoms. Sleep through night without pain/symptoms. Patient will increase strength of core and postural muscles to WFL to allow for improved ability tocomplete ADLs and tolerate positions and ambulation. Improve score on Timed Up and Go Test to 7.24 seconds to reflect decreased fall risk. Patient Goals: get rid of pain and make legs stronger Planned Interventions, Frequency, and Duration: Current Frequency: 2x/week Duration: 6 weeks Total Number of Visits Planned: 12 Planned Treatment Interventions: Therapeutic exercise (77840), Neuromuscular re- education (98322), Manual therapy (05099), Therapeutic activities (85727), Self- senior care management (60355), Gait Training (16222), Patient/Family/Caregiver Education, Body Mechanics Training, General Conditioning, Functional training PLAN FOR NEXT VISIT: Review, correct and progress HEP to tolerance. Continue with postural stretching and strengthening with flexion directional preference. Consider balance and gait training prn, aswell as LE strengthening prn. Patient demonstrates good understanding of plan of care and treatment. The above goals and plan of care were discussed and agreed upon by patient/family. SUBJECTIVE: Pt reports intermittent aching pain in bilateral lower legs with weakness that occurs in the evening. She reports that these symptoms make it difficult for her to walk in the house. Patient Goals: get rid of pain and make legs stronger Functional Limitations: rising from a chair, walking in the house, sleeping Prior Level of Function: Independent without limitations Relevant History Employment: Unemployed Home Environment Patient Lives With: Facility Care (care home with 5 other ladies that "stress me out") Assistance Available: 24-Hour Home Type: Multi-Level Entry To Home: Stairs, With Rail Number Of Stairs Into Home: 4 Number Of Stairs To Bed/Bath: 14 Stairs to Bed/Bath with: Bilateral Rail Equipment Owned: (none) Intake Information: Prescription present Previous Treatment: NSAIDs Falls Interview: No positive findings with falls interview Red Flags Vertebral Fracture Red Flags: Female Vertebral Fracture Clinical Reasoning: No identified risk factors Abdominal Aortic Aneurysm Clinical Reasoning: No identified risk factors. Cancer Clinical Reasoning: No identified risk factors. Infection Clinical Reasoning: No identified risk factors. Cauda Equina Syndrome Clinical Reasoning: Proceed with caution ("I go alot") Red Flags - Cervical Cancer Clinical Reasoning: No identified risk factors. Infection Clinical Reasoning: No identified risk factors. Spine History Symptoms Location at Onset: Calf Symptoms Since Onset: Unchanging Pain is Worse Always: Walking ("I have difficulty walking") Pain is Better Sometimes: Sitting Sleeping Position: Side lying right, Side lying left Sleep Affected by Pain: Pain keeps from falling asleep Pain: Pain Pain Level: 5 Pain Location: Calf - Right, Calf - Left Description: Aching Frequency: Intermittent ("when I lay down they start to ache") Post Treatment Pain Post Treatment Pain Level: No Change Post Treatment Symptoms: Pt did not report any symptomatic change after today's session. Pain Mechanism Classification: Neuropathic PROMIS Scales 01/21/2024 Higher is Better Phys Func - Score 39 (moderate dysfunction) Phys Func - Percentile 14 Self-Eff Symptom - Score 41 (Average) Self-Eff Symptom - Percentile 18 T-scores: mean of general population = 50. 5 points is clinically meaningfully difference Percentiles provide an indication of how the patient's score ranks in relation to the general population. Higher percentile rankings indicate better function/quality of life. 50th percentile is the average of the general population and indicates half of respondents had a worse score. OBJECTIVE MEASURES WITH LEVEL OF FUNCTION: Posture / Alignment Posture: Forward head, Increased thoracic kyphosis, Rounded shoulders Sensation - Lower Extremity LE Light Touch Sensation: Grossly Intact Sensation - Lumbar Sensation: Grossly Intact LE Strength Trunk Strength: Pt's postural deficits and reported functional difficulties indicate that she will benefit from increased core and postural strenght. R LE Strength: No asymmetrical myotomal weakness detected in B LEs at this time. L LE Strength: No asymmetrical myotomal weakness detected in B LEs at this time. Special Tests - Hip and Spine Hip and Spine Special Tests: SLR Test SLR Test: Right Positive, Left Positive Gait Gait Observation: Pt ambulates safe without an assistive device at this time. She does report that her difficulty walking occurs later in the day. Functional Performance Test Results Assistive Device: None 30 Second Chair Stand Test: 14 reps Timed Up and Go (sec): 8.4 sec Vitals BP: 118/78 Pulse: 98 Education: Education Learning Preferences: Demonstration, Explanation, Performance, Printed Materials Barriers: Cognitive Limitations, Reading Comprehension Learning/educational needs: Plan of Care, Home exercise program, Safety, Posture, Body Mechanics, Gait Training Education Provided: Yes, see treatment interventions for education provided Education Provided To: Patient, Caregiver Education Mode/Type: Demonstration, Explanation/Discussion, Literature/Printed Materials, Performance Response to Education/Teach Back: States/Identifies, Return Demonstration, Requires Review/Additional Education TREATMENT: PT Treatment Interventions: Therapeutic Exercise Evaluation Therapeutic Exercise: 1: Pt and her caregiver were provided with considerable education on anatomy, likely etiology of symptoms and the rationale for recommended plan of care. Pt was advised to use pain as her guide at all times and to stop any exercise that causes increased pain. 2: *supine B SKTC 3x30 seconds 3: *supine DKTC 3x30 seconds Skilled Intervention: Patient was educated in proper exercise technique and purpose for exercises. Reviewed and educated patient on additions/changes for home exercise program as above (*). Skilled judgment was used in selection of appropriate interventions. Provided written instruction for home exercise program to facilitate proper performance and compliance. Correct performance of therapeutic exercises was facilitated with verbal, visual, and tactile cuing. Patient education as noted. Billing * Evaluation Moderate Complexity: 1 Unit Therapeutic Exercise Treatment Minutes: 20 Skilled Treatment Time Minutes (timed and untimed codes): 50 Total Session Time (minutes): 50 Session Start Time : 1045 Session Stop Time : 1135 Gerardo Davis PT * Gerardo Davis PT - 01/21/2024 11:21 AM EDT Program_ID:[id number] Access Code: [email or web address] URL: [email or web address] Date: 01-21-2024 Prepared By: Gerardo Davis Program Notes Exercises - Hooklying Single Knee to Chest Stretch - 3 x daily - 7 x weekly - sets - 3 reps - Supine Double Knee to Chest Modified - 1 x daily - 7 x weekly - sets - 3 reps documented [facility]04-[facility]24 Instructions* Patient Instructions* Radha Batista APRN.CNP - 01/13/2024 9:45 AM EDT Start the saline spray to the nose twice daily. Stop the meloxicam. Start the celebrex (celecoxib) once daily (for leg pain). Start the docusate twice daily (for constipation). Schedule w/ physical therapy to help with the legs. documented in [facility]04-[facility] History of Present illness Narrative* Radha Batista APRN.CNP - 01/13/2024 9:18 AM EDT This is a 58 year old female who presents today with: Patient presents with: Recheck: Follow up- pain in lower b/l extremities; meloxicam is not working; difficulty walking HISTORY OF PRESENT ILLNESS: Brenda Le is a 58 year old female. Patient presents with: Recheck: Follow up- pain in lower b/l extremities; meloxicam is not working; difficulty walking Pt presents today for follow-up. Was in the ER with abdominal pain. Dx w/ constipation. Refers that her bowel movements are every two days, small and she has to strain. Refers that she is drinking a lot of water, juice, milk. Has been going on for a couple of weeks. Using miralax daily. Refers that she has dry nose with some scabs in the nose. Refers the nose is real dry and has scabs. Has bled now twice. Refers that her legs are bad. Having a hard time walking. Refers that her legs feel weak and painful. Indicates that entire legs are painful (upper and lower and bilaterally). No falls. Tried meloxicam without effect. PAST MEDICAL HISTORY: PAST MEDICAL HISTORY Diagnosis Date Bilateral pneumonia 07/23/2018 Admit [facility]: pneumococcal suspected, neg culture. 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 MEDICATIONS Current Outpatient Medications Medication Sig meloxicam (MOBIC) 15 mg tablet Take 1 tablet by mouth once daily. With food. omeprazole (PRILOSEC) 20 mg capsule Take 1 capsule by mouth daily before breakfast. 1/2 hr before meal. Artificial Tear, Hypromellose, (SYSTANE GEL) 0.3 % gel Use 1 Drop in both eyes daily at bedtime. empagliflozin (JARDIANCE) 10 mg tablet Take 1 [...] vaginally daily at bedtime. For 7 nights. Jtbrq-3-NPP-EPA-Fish Oil (FISH OIL) 300-1,000 mg cap Take by mouth. insulin glargine (LANTUS SOLOSTAR U-100 INSULIN) 100 unit/mL (3 mL) Give 48 units subq daily at 4 PM or as directed insulin lispro (HUMALOG KWIKPEN) 100 unit/mL Sig: Administer Lispro insulin per scale AC breakfast morning, AC lunch, AC dinner, AC bedtime as follows with glucose 150-199 2u, 200-249 3u, 250-299 5u,300-350 8u, 350-399 11u, 400- 449 14u, 450 [...] take 1 tablet by mouth every evening pramipexole (MIRAPEX) 0.5 mg tablet Take 0.5 tablets by mouth daily at bedtime. Comp Stocking,Knee,Regular,Med misc Patient to be measured for correct size. 20- 30 mmHg Dx: I50.31 ibuprofen (MOTRIN) 200 mg [...] 1 application to affected area once daily. Location:face insulin needles, DISPOSABLE, (PEN NEEDLE) 31 gauge x 5/16" Use one needle per dose. Once per day. Lancing Device with Lancets ([employer] DELICA PLUS LANC DEV) Check blood sugars [...] Dx: Other DM Code E11.21 Insulin: Yes METOPROLOL SUCCINATE ORAL Take 12.5 mg by [...] INSULIN SYRINGE) 1 mL 28 gauge x 1/2" syrg Use as directed daily COMPOUNDED PRESCRIPTION [...] 01/11/2014 Years since quittin.0 Smokeless tobacco: Never Vaping Use Vaping Use: Never used Substance Use Topics Alcohol use: No Drug use: No Comment: marijunan- Teen yrs, but not now EXAM: BP 110/80 Pulse 89 Resp 16 Wt 82.6 kg (182 lb) LMP 09/12/2017 SpO2 97% BMI 34.39 kg/m PHYSICAL EXAM: General Appearance: Well appearing, alert, in no acute distress, well-hydrated, well nourished.. Skin: Skin color, texture, turgor normal, no suspicious rashes or lesions. Head: Normocephalic, no masses, lesions, tenderness or abnormalities. Eyes: Anicteric sclera. Extraocular movements are intact. . Ears: External ears normal, canals clear. Normal TMs bilaterally. Nose/Sinuses: Nares normal, septum midline, no drainage or sinus tenderness, Positive findings: mucosa erythematous and swollen. Lungs: Lungs clear to auscultation. No wheezing, rhonchi, rales.. Heart: RRR without murmur, gallop, or rubs. No ectopy. Ext: good and equal strength of the BLE. Neurologic: Gait normal. ASSESSMENT/PLAN: 1. Acute constipation - ICD9: 564.00, ICD10: K59.00 (primary diagnosis) Continue miralax. Add docusate. - DOCUSATE SODIUM 100 MG CAPSULE Stay hydrated, but pt with hx of water intoxication, so discussed not overdoing the hydration. Activity/walking encouraged. 2. Nasal dryness - ICD9: 478.19, ICD10: J34.89 Humidifier. - AYR SALINE GEL NASAL SPRAY 3. Pain in both lower extremities - ICD9: 729.5, ICD10: M79.604, M79.605 Stop meloxicam. Start Celebrex. Physical therapy. - CELECOXIB 200 MG CAPSULE 4. Leg weakness, bilateral - ICD9: 729.89, ICD10: R29.898 - CONSULT TO PHYSICAL THERAPY Discussed treatment plan and patient voices understanding. Patient's questions answered appropriately. Medications and potential side effects were discussed and patient voices understanding. Return to the office as scheduled or as needed for worsening/no improvement. Radha Batista APRN.TANNING SALON ATTENDANT documented in this encounter[facility]03-[facility]24 Discharge summary Author Jey Quesada [facility] December 13, 2023 11:08pm Note Date/Time December 13, 2023 6:24 pm [facility] Medical Records Department [address] [place] [address] Emergency Department Summary 12/13/23 MR#: [id number] Acct: [id number] Name: BRENDA LE Rep #:[id number] : 1965 58 From: Jey Quesada DO PCP: Dr. Aleksandar Jones MD Status:REG E R Location: ED HPI HPI - GI History of Present Illness Chief Complaint: Abd Pain Narrative Narrative: 58-year-old female presenting with nausea. She states that she was at her nursing facility today and drank some milk and ate a Parfait and went up to her room. At this point she felt nauseous. She is felt nauseous most of the day. She states she thinks she might of came down with a "flu bug". Patient states has been some women at the facility coughing and sneezing. Patient does state that she has some abdominal pain which is diffuse and she describes it as crampy. Patient states that she has not vomited and she has not had diarrhea. Denies urinary or vaginal complaints. Past abdominal surgeries include cholecystectomy. No history of bowel obstruction. [facility] Medical History Anxiety and depression COPD (chronic obstructive pulmonary disease) GERD (gastroesophageal reflux disease) HTN (hypertension) Hyperlipidemia Obesity LIDA on CPAP Restless leg syndrome Schizophrenia Type 2 diabetes mellitus Home Medications cholecalciferol (vitamin D3) 25 mcg (1,000 unit) capsule (Vitamin D3) 1,000 unitPO DAILY SUPPLEMENT 10/17/17 [History Last Taken 07/30/21] aspirin 325 mg tablet,delayed release 325 mg PO DAILY@1600 heart health 07/22/18[History Last Taken 07/30/21] omeprazole 20 mg capsule,delayed release 20 mg PO DAILY indigestion 10/31/19 [History Last Taken 07/30/21] potassium chloride 20 mEq tablet,extended release(part/cryst) 20 meq PO DAILY supplement 11/16/19 [History Last Taken 07/30/21] clozapine 100 mg tablet 100 mg PO 4X/DAY SCHIZOPHRENIA 07/30/21 [History Last Taken 07/30/21] empagliflozin 10 mg tablet (Jardiance) 10 mg PO DAILY diabetes 07/30/21 [History Last Taken 07/30/21] furosemide 20 mg tablet 20 mg PO DAILY FLUID 07/30/21 [History Last Taken 07/30/21] insulin glargine 100 unit/mL (3 mL) subcutaneous pen (Lantus Solostar U-100 Insulin) 48 unit subcut DAILY@1600 DM 07/30/21 [History Last Taken 07/30/21] metoprolol succinate 25 mg tablet,extended release 24 hr 25 mg PO QHS HTN 07/30/21 [History Last Taken 07/29/21] clonazepam 0.5 mg tablet 1 mg PO BID schizophrenia 06/05/22 [History Last Taken Unknown] ferrous sulfate 325 mg (65 mg iron) tablet (Feosol) 325 mg PO .BID with meals anemia 06/05/22 [History Last Taken Unknown] pramipexole 0.5 mg tablet 0.25 mg PO QHS restless legs 06/05/22 [History Last Taken Unknown] atorvastatin 10 mg tablet 10 mg PO DAILY Cholesterol 08/14/23 [History Last Taken Unknown] guaifenesin 1,200 mg tablet, extended release 12 hr (Mucus Relief ER) 1,200 mg PO DAILY congestion 08/14/23 [History Last Taken Unknown] haloperidol 2 mg tablet 2 mg PO QHS anxiety 08/14/23 [History Last Taken Unknown] metformin 500 mg tablet,extended release 24 hr 1,000 mg PO BID Diabetes 08/14/23[History Last Taken Unknown] benztropine 0.5 mg tablet 0.5 mg PO BID tremors 08/15/23 [History Last Taken Unknown] doxycycline hyclate 100 mg tablet 100 mg PO BID 7 days #14 tabs 08/16/23 [Rx Last Taken Unknown] guaifenesin 1,200 mg tablet, extended release 12 hr (Mucus Relief ER) 1,200 mg PO BID #20 tabs 08/16/23 [Rx Last Taken Unknown] prednisone 20 mg tablet 20 mg PO BID #14 tabs 08/16/23 [Rx Last Taken Unknown] ondansetron 4 mg disintegrating tablet 4 mg PO Q8H PRN PRN Nausea #14 tabs 12/13/23 [Rx Last Taken Unknown] peg 3350-electrolytes 236 gram-22.74 gram-6.74 gram-5.86 gram solution (Golytely) 240 ml PO Q10M PRN #4,000 mL 12/13/23 [Rx Last Taken Unknown] Allergy/AdvReac Type Severity Reaction Status Date / Time No Known Allergies Allergy Verified 12/13/23 18:16 Family History Mother Heart disease Hypertension Father COPD (chronic obstructive pulmonary disease) Cancer Surgical History History of cholecystectomy History of mandibular surgery Social History housing: other details: care home. Smoking Status: Former smoker how long ago did patient quit smoking: Quit 10 years prior to 08/14/23 presentation, 2 ppd since teen until quit. alcohol intake: never substance use type: does not use ROS ROS ED Constitutional Constitutional ED: Denies chills, fever(s) or sweats Eyes Eyes: Denies blurry vision or change in vision ENT ENT ED: Denies ear pain or sore throat Cardiovascular Cardiovascular: Denies chest pain, palpitations or racing heartbeat Respiratory/Chest Respiratory/Chest: Denies cough, dyspnea or sputum Gastrointestinal Gastrointestinal: Reports abdominal pain, nausea and vomiting; Denies constipation or diarrhea Genitourinary Genitourinary ED: Denies dysuria, hematuria or urinary frequency Musculoskeletal Musculoskeletal: Denies arthralgias, myalgias or neck pain Integumentary Denies abscess, Abrasions or rash Neurologic Neurologic: Denies headache(s), paresthesias or weakness Psychiatric Psychiatric: Denies anxiety, depression, suicidal ideation or suicidal thoughts Endocrine Endocrinology: Denies polydipsia or polyuria EXAM Physical Exam Const Vital Signs: 12/13/23 18:09 12/13/23 20:08 12/13/23 22:08 Temperature 96.9 F L Temperature Source Temporal Pulse Rate 120 H Respiratory Rate 20 H 18 20 H Blood Pressure 130/79 H Blood Pressure Mean 96 Pulse Ox 93 Oxygen Delivery Method Room Air Positive well nourished General Appearance ED: NAD; Negative for pallor HEENT Reports moist mucous membranes normocephalic and atraumatic Eyes PERRL and EOMs intact bilaterally Resp normal respiratory effort Cardio regular rate and regular rhythm GI GI Narrative: Mildly tender diffusely. Back/Spine no CVA tenderness Neuro CN's II-XII intact bilaterally Sensorium / Orientation: alert Motor Exam: strength 5/5 throughout Psych mental status grossly normal and thought process normal Skin General Skin Exam: Negative for jaundice or pallor MDM MDM MDM Narrative Medical decision making narrative: 58-year-old female presenting with abdominal pain, nausea, vomiting. Patient presenting with right flank pain. Differential includes colitis, diverticulitis, gastritis, pancreatitis, constipation, appendicitis, UTI, pyelonephritis, calculi, ureteral calculi, obstruction, malignancy, dehydration,electrolyte abnormalities, COVID, influenza, RSV. Patient given IV fluids. Zofran for nausea. Patient CBC obtained to assess white blood cell count, hemoglobin complaints. CMP to assess liver function, electrolytes. Lipase to assess for pancreatitis. Urinalysis to assess for UTI. Mild leukocytosis of 15.3. Hemoglobin 14.1. Platelets normal at 226. Creatinine is normal. Glucose slightly elevated 146 without anion gap. Sodium slightly low at 129. Patient was given IV fluids. Alkaline phosphatase is normal. Otherwise LFTs are normal. Lipase negative. Urinalysis negative for infection. COVID, influenza, RSV are all negative as well. Patient complained of abdominal pain at this point and we did obtain a CT of the abdomen pelvis which shows constipation no other acute abnormality. Patient will be given GoLytely to takeback to the facility as the facility stated that they do not have anything for constipation there. I also's suspect she might have a flu virus that she is complaining of body aches and chills. She tested negative today. Will give hersome Miko as well for home to help with nausea. Return precautions discussed. Impression: 1. Abdominal pain 2. Nausea/vomiting 3. Constipation Lab Data Labs: Laboratory Results - last 24 hr 12/13/23 12/13/23 18:34 21:05 WBC 15.3 H RBC 4.90 Hgb 14.1 Hct 42.7 MCV 87.1 MCH 28.8 MCHC 33.0 RDW Std Deviation 42.6 RDW Coeff of Tyesha 13.5 Plt Count 226 MPV 9.5 Immature Gran % (Auto) 0.300 Neut % (Auto) 83.5 H Lymph % (Auto) 8.5 L [place] % (Auto) 7.2 Eos % (Auto) 0.3 Baso % (Auto) 0.2 Absolute Neuts (auto) 12.8 H Absolute Lymphs (auto) 1.30 Nucleated RBC % 0 Sodium 129 L Potassium 4.1 Chloride 100 Carbon Dioxide 22.0 Anion Gap 7 BUN 22 H Creatinine 0.55 Estim Creat Clear Calc 104.39 Est GFR (MDRD) Af Amer 144 Est GFR (MDRD) Non-Af 119 BUN/Creatinine Ratio 39.8 H Glucose 146 H Calcium 9.1 Total Bilirubin 0.50 AST 23 ALT 43 Alkaline Phosphatase 141 H Total Protein 7.2 Albumin 3.5 Globulin 3.7 Albumin/Globulin Ratio 0.9 Lipase 37 Urine Color Straw Urine Clarity Clear Urine pH 6.0 Ur Specific [place] 1.010 Urine Protein Negative Urine Glucose (UA) 1000 H Urine Ketones 5 H Urine Occult Blood Negative Urine Nitrite Negative Urine Bilirubin Negative Urine Urobilinogen Normal Ur Leukocyte Esterase 25 H Urine RBC 0 SEEN Urine WBC 0-5 SEEN Ur Squamous Epith Cells 0-5 SEEN Urine Bacteria 0 SEEN Urine Mucus 0 SEEN Radiography Diagnostic Testing: Clinical Impression(s) from Imaging Studies Abdomen/Pelvis CT 12/13/23 21:25 IMPRESSION: Moderate stool in the colon compatible with constipation. No other acute abnormalities are identified. Electronically Signed: Tj Rosales MD at 22:00 EST Reading Location ID and State: [facility] / [place] Tel , Service support , Discharge Plan Triage Chief Complaint: Abd Pain ED Provider: Jey Quesada Dx/Rx/DC Orders Instructions: ED Constipation (Adult), ED Diet Vomiting Diarrhea Prescriptions: New ondansetron 4 mg tablet,disintegrating 4 mg PO Q8H PRN PRN (Reason: Nausea) Qty: 14 0RF peg 3350-electrolytes [Golytely] 236-22.74-6.74 -5.86 gram recon soln 240 ml PO Q10M PRN Qty: 4000 0RF Rx Instructions: until fecal effluent is clear No Action cholecalciferol (vitamin D3) [Vitamin D3] 1,000 UNIT capsule 1,000 unit PO DAILY aspirin 325 MG tablet,delayed release (DR/EC) 325 mg PO DAILY@1600 omeprazole 20 MG capsule,delayed release(DR/EC) 20 mg PO DAILY potassium chloride 20 MEQ tablet 20 meq PO DAILY metoprolol succinate 25 mg Tablet Extended Release 24 Hr 25 mg PO QHS Jardiance 10 mg Tablet 10 mg PO DAILY furosemide 20 mg tablet 20 mg PO DAILY insulin glargine [Lantus Solostar U-100 Insulin] 100 unit/mL (3 mL) insulin pen 48 unit SUBCUT DAILY@1600 clozapine 100 MG tablet 100 mg PO 4X/DAY clonazepam 0.5 mg Tablet 1 mg PO BID pramipexole 0.5 mg Tablet 0.25 mg PO QHS Rx Instructions: Take half table PO at bedtime ferrous sulfate [Feosol] 325 mg (65 mg iron) Tablet 325 mg PO .BID with meals metformin 500 mg tablet extended release 24 hr 1,000 mg PO BID haloperidol 2 mg tablet 2 mg PO QHS guaifenesin [Mucus Relief ER] 1,200 mg tablet extended release 12hr 1,200 mg PO DAILY atorvastatin 10 mg tablet 10 mg PO DAILY benztropine 0.5 mg tablet 0.5 mg PO BID doxycycline hyclate 100 mg tablet 100 mg PO BID 7 Days Qty: 14 0RF prednisone 20 mg tablet 20 mg PO BID Qty: 14 0RF guaifenesin [Mucus Relief ER] 1,200 mg tablet extended release 12hr 1,200 mg PO BID Qty: 20 0RF Primary Care Provider: Aleksandar Jones Referrals: Aleksandar Jones MD [Primary Care Provider] - Disposition Disposition: Home, Self Care What to do if you have Problems For any increased pain, shortness of breath, bleeding, nausea or vomiting, chestpain, or any unexpected problems, contact your Primary Care Provider. Call [facility] ([phone]) or report to the closest Emergency Room. Call 911 if necessary. 12/13/232307 <Electronically signed by Jey Quesada DO> Cosigner Signature (if applicable): CC: Dr. Aleksandar Jones MD ~ Signed [facility] Work Phone: [phone] [phone] Miscellaneous Notes* Telephone Encounter - Shanell Estes LPN - 12/02/2023 2:43 PM EST Patient has been identified by name and date of : Yes, Provider Dr Jones Patient phones for refill(s): Requested Prescriptions Pending [...] you. Shanell Estes LPN. documented [facility] encounter[facility] Miscellaneous Notes* Telephone Encounter - Edel Katz LPN - 11/20/2023 8:47 AM EST Patient notified of results, verbalizes understanding of instructions. Edel Katz LPN * Telephone Encounter - Meredith Moore APRN.CNP - 11/20/2023 7:23 AM EST Can you please call the patient and let her know I reviewed her lab results. Additional labs were normal, calcium is at normal levels. No further testing needed at this time. Please let me know if she has any questions. Thank you. Meredith Moore APRN.TANNING SALON ATTENDANT documented in this encounterEast [facility] Hospital12-11-2023 History of Present illness Narrative* Fuentes Renee MD - 09/22/2023 3:56 PM EST Images from the original note were not included. Fuentes Renee MD Interventional Cardiology [address] [place] [address] Chief Complaint Patient presents with: Established Patient [...] function with no evidence of ischemia with normalejection fraction Cardiac Risk Factors age (male over 45, female over 55), hyperlipidemia, hypertension PAST MEDICAL HISTORY Diagnosis Date Bilateral pneumonia 07/23/2018 Admit [facility]: pneumococcal suspected, neg culture. 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 15g 0 furosemide (LASIX) 20 mg tablet Take [...] bedtime. For 7 nights. 7 Suppository 0 Vuede-5-XTH-EPA-Fish Oil (FISH OIL) 300-1,000 mg cap Take by mouth. insulin glargine (LANTUS SOLOSTAR U-100 INSULIN) 100 unit/mL (3 mL) Give 48 units subq daily at 4 PM or as directed 5 Each 11 insulin lispro (HUMALOG KWIKPEN) 100 unit/mL Sig: Administer Lispro insulin per scale AC breakfast morning, AC lunch, AC dinner, AC bedtime as follows with glucose 150-199 2u, 200-249 3u, 250-299 5u,300-350 8u, 350-399 11u, 400- 449 14u, 450 and above go to ER. Total per day 64u 1 Each 5 omega-3 fatty acids (FISH OIL CONCENTRATE) 1,000 mg cap Take 1 capsule by mouth once daily. 30 capsule 11 Cholecalciferol, Vitamin D3, 25 mcg (1,000 unit) cap Take 1 capsule by mouth once daily. 30 [id number] guaiFENesin (MUCINEX) 600 mg 12 hr tablet [...] Patient to be measured for correct size. 20- 30 mmHg Dx: I50.31 1 Each 0 ibuprofen (MOTRIN) 200 mg tablet Take 1 tablet by mouth every 8 hours as needed for pain. 60 tablet1 metFORMIN ER (GLUCOPHAGE XR) 500 mg 24 [...] 1 application to affected area once daily. Location:face 60 g 5 simethicone, chewable (GAS RELIEF, SIMETHICONE,) 80 mg chewable tablet Take 1 tablet by mouth every6 hours as needed. 100 tablet 11 insulin needles, DISPOSABLE, (PEN NEEDLE) 31 gauge x 5/16" Use one needle per dose. Once per day. 100 Each 11 Artificial Tear, Hypromellose, (SYSTANE GEL) 0.3 % gel Use 1 Drop in both eyes daily at bedtime. 10mL 5 Lancing Device with Lancets (MuzyUCH DELICA PLUS LANC DEV) Check blood sugars [...] INSULIN SYRINGE) 1 mL 28 gauge x 1/2" syrg Use as directed daily 100 Syringe 5 COMPOUNDED PRESCRIPTION BIPAP of 8 on [address]L oxygen per [address] Ramirez Lancets [...] high Hemoglobin A1C: No results found for: "HGBA1C" TSH: No results found for: "TSHREFL" Prior Cardiac Testing stress Assessment and Plan: [...] to correct any errors. documented in this encounterEast [facility]11-29-2023 Miscellaneous Notes* Telephone Encounter - Joselyn Hendricks - 09/10/2023 9:54 AM EST Leola informed and verbalized understanding. Needs new rx for lancets and strips. Pended. Joselyn Hendricks * Telephone Encounter - Aleksandar Jones MD - 09/09/2023 5:19 PM EST Can go back to bid and send list in two weeks. Do we need to send in new r for strips and lancets then? * Telephone Encounter - Berry Alma Manuel RN - 09/09/2023 4:41 PM EST Fransisca returned call stating she is reporting BS readings: 08-25: fast: 197, 3 p: 230, 8 p: 203 14: f: 102, 3 p: 164, 8 p: 184 15: f: 115, 11 a: 114, 3p: 153, 8 p: 245 16: f: 140, 11 a: 128, 3 p: 153, 8 p: 245 17: f: 166, 11 a: 138, 3 p: 115, 8 p: 219 1118: f: 146, 3 p: 116, 8 p: 155 1119: f: 140, 122, 8 p: 209 1120: f: 120, 11 a: 107, 3 p: [...] predisone, and ordered to check BS 4 x'sday. Reports patient has been off of prednisone [...] advise Leola, and Leola will notify Fransisca. * Telephone Encounter - Shelia Roman LPN - 09/09/2023 4:31 PM EST Left message for Fransisca to return call * Telephone Encounter - Nissa Ybarra OCCA - 09/09/2023 2:35 PM EST TC to patients onsite case manager, Leola, to question frequency of BG readings. Leola states that Brenda recently had COPD exacerbation and was given prednisone. She believed that's why BG was high, she has been taking regular dose of insulin plus sliding scale. Leola reports patients BG is back to her normal readings. Leola unable to verify frequency of BG monitoring and states Fransisca from [facility] and to contact her at [phone] after 4 PM for additional information. CHRIS Antunez * Telephone Encounter - Aleksandar Jones MD - 09/09/2023 1:46 PM EST Can we verify with long term. I have her being testing two times a day * Telephone Encounter - Yany Richardson - 09/09/2023 1:32 PM EST Brenda is calling Aleksandar Jones MD today Dorie Yard Spotter from [facility] called due to she needs our office to call and confirm the diabetic information for the patient. The [facility] told her they are testing the patient 5 times per day. They will need new prescriptions for test stripsand lancets. Please call back. Patient has been identified by name and birthdate. Closing statement: Results or non-symptom based questions: Thank you for calling [facility], your call will be returned within the next business day. Yany Zuniga documented in this encounterEast [facility] Hospital11-29-2023 Miscellaneous Notes* Telephone Encounter - Maye Ferrer RACHAEL - 09/10/2023 9:16 AM EST Patient has been identified by name and [...] Value 04/29/2023 114 03/12/2019 Test sent to [facility]. Non HDL Cholesterol (mg/dL) Date Value 08/21/2022 118 07/26/2020 132 Blood Pressure: BUN (mg/dL) Date Value 04/29/2023 14 07/19/2021 8 Sodium (mmol/L) Date Value 04/29/2023 135 07/19/2021 133 Last 1 Encounter BP Readings: Date: BP: 08/29/2023 118/72 Please advise. Thank you. Maye Ferrer LPN. documented in this encounterEast [facility] Hospital11-20-2023 Miscellaneous Notes* Telephone Encounter - Jade Macedo LPN - 09/01/2023 1:56 PM EST Pharmacy called and were given verification that medication was to be given for 7 days. Jade Macedo LPN * Addendum Note - Alma Ac APRN.CNP - 09/01/2023 12:51 PM ESTAddended by: ALMA AC on: 09/01/2023 12:51 PM Modules accepted: Orders * Telephone Encounter - Alma Ac APRN.CNP - 09/01/2023 12:50 PM EST I change the order but I still want it for 7 days. Alma Ac APRN.CNP * Telephone Encounter - Edilia Rogers RN - 09/01/2023 11:06 AM EST [facility] pharmacy called. Asking if they could replace the Monistat cream to Miconazole 200 mg suppository to meet the needs of the patient. It comes as a 3 day pack. Edilia Rogers RN * Telephone Encounter - Joselyn Haji RN - 09/01/2023 10:53 AM EST ceramic worker notified of information below. Joselyn Haji RN * Telephone Encounter - Alma Ac APRN.CNP - 09/01/2023 10:27 AM EST There is an interaction with the Diflucan and another medication she is on, that's why I didn't order it. Alma Ac APRN.CNP * Telephone Encounter - Joselyn Haji RN - 09/01/2023 9:28 AM EST Patients lean manufacturing specialist called and notified of results and instructions. Leola states the long term where Brenda lives is not licensed to administer the medication and areonly able to give verbal prompts. Because patient is very cognitively limited is she able to get oral Diflucan instead of vaginal cream? Will need to call [facility] patients lean manufacturing specialist back. Joselyn Haji RN * Telephone Encounter - Alma Ac APRN.CNP - 08/31/2023 9:53 AM EST Please notify patient that she does have a yeast infection. I would like her to use Monistat 7 (or generic) 1 of a applicator full every night for 7 nights. If symptoms do not improve please jazlyn the office. RX sent in. Alma Ac APRN.CNP documented in this encounterEast [facility]11-17-2023 History of Present illness Narrative* Alma Ac APRN.CNP - 08/29/2023 3:06 PM EST Brenda Le is a 57 year old female [...] allergies reviewed and updated. OBJECTIVE: Ht 5' 1" (1.55m) Wt 174 lb (78.9kg) LMP 09/12/2017 BMI 32.89 kg/(m^2). GENERAL: Well developed, well nourished in no apparent distress ABDOMEN: soft, non-tender, and no masses PELVIC: external genitalia normal, normal Bartholin's glands, urethra, [place]'s glands, no vulvar lesions, no cervical lesions, [...] CLOTRIMAZOLE-BETAMETHASONE 1 %-0.05 % TOPICAL CREAM Alma Ac APRN.TANNING SALON ATTENDANT Brush Machine Setter offered: Patient declines. Medical Decision Making: Problems: Low: Acute, uncomplicated illness or injury Data: Unique test(s) ordered: 2 Risk: Low: Low risk from testing/treatment Moderate: Drug management Medical Decision Making Level: 3 - Low documented in this encounterEast [facility] Hospital11-16-2023 Miscellaneous Notes* Telephone Encounter - Alma Smart RN - 08/28/2023 8:35 AM EST Patient has been identified by name and date of : Yes, Provider [place] Date 08-28-23 Time 8:36 am Pharmacy phones [...] you. Alma Smart RN. documented in this encounterEast [facility]11-09-2023 Miscellaneous Notes* Telephone Encounter - Alma Nuno PA-C - 08/21/2023 6:48 AM EST [place] it again! There is no longer Humulin R pen except the 500/u concentrated pen. Apparently I am old. The following approved medication requests have been transmitted electronically. Requested Prescriptions Signed Prescriptions Disp Refills insulin lispro (HUMALOG KWIKPEN) 100 unit/mL 1 Each 5 Sig: Sig: Administer Lispro insulin per scale AC breakfast morning, AC lunch, AC dinner, AC bedtimeas follows with glucose 150-199 2u, 200-249 3u, 250-299 5u, 300-350 8u, 350-399 11u, 400- 449 14u, 450 and above go to ER. Total per day 64u Authorizing Provider: Alma NUNO PA-C . * Telephone Encounter - Shanell Estes LPN - 08/20/2023 1:50 PM EST Alejandro, this is the same Rx that was prescribed yesterday, Curtis is asking if pt can have an Rx for humulin pens, not vials. Is this an option? If so, please send rx to [facility]. Thank you, Shanell Estes LPN * Telephone Encounter - Alma Nuno PA-C - 08/20/2023 12:42 PM EST The following approved medication requests have been [...] day 64u Authorizing Provider: Alma NUNO PA-C * Telephone Encounter - Brandy Mark LPN - 08/20/2023 10:50 AM EST Curtis Pollard called and he is requesting [...] option. Brandy Mark LPN documented in this encounterEast [facility]11-07-2023 Miscellaneous Notes* Telephone Encounter - Cristal White RN - 08/19/2023 5:55 PM EST Fransisca Pandya Resident Staff at the [facility] called and is notified of providers results and instructions. She voices understanding. Cristal White RN * Telephone Encounter - Alma Nuno PA-C - 08/19/2023 5:38 PM EST Have her cover ac+HS blood sugars as [...] day 64u Authorizing Provider: Alma NUNO PA-C * Telephone Encounter - Cristal White RN - 08/19/2023 3:54 PM EST Fransisca Pandya Resident Staff at the [facility] the [facility] she reports Pt was in the hospital for COPD and she was placed on antibiotic and prednisone. Yesterday her morning BS was 149 and 3 pm was 207, today am BS was 185 3pm BS was 357 330 pm BS was 356. Pt took her Metforminand 48 units of Lantus, and in the morning she took her Jardiance. She states they are worried about how high her BS is. Please call and advise. documented in this encounterEast [facility] Hospital11-04-2023 Discharge summary Author Hesham Noguera [facility] August 16, 2023 10:28am Note Date/Time August 16, 2023 1 0:14am [facility] Medical Records Department [address] [place] [address] Discharge Summary 08/16/23 1011 MR#: [id number] Acct: [id number] Name: BRENDA LE Rep #:[id number] : 1965 57 From: Hesham Noguera MD PCP: Dr. Aleksandar Jones MD Status:ADM I N Location: [place] [id number] Providers Date of Admission: 08/14/23 Date of Discharge: 11/04/23 Primary Care Physician: Dr. Aleksandar Jones MD Reason For Visit: COPD EXACERBATION, HYPOXIA Diagnosis Discharge Diagnosis (1) COPD exacerbation: Status: Chronic Code(s): J44.1 - Chronic obstructive pulmonary disease with (acute) exacerbation Plan Patient is a 57-year-old lady admitted with progressive shortness of breath diagnosed with COPD with acute exacerbation admitted to monitored bed for further management 1. COPD with acute exacerbation ?Managed with aerosol treatment and steroid as well as antibiotics in addition to supplemental oxygen. ? 08/16/2023 patient back to baseline 2. Dyslipidemia -Patient is on statin therapy, continued at home dose 3. Diabetes mellitus type II -patient's oral hypoglycemics held. Placed on long acting insulin, Accu-Cheks a.c. and at bedtime and covered with sliding scale insulin 4. Anxiety attack ? is on Klonopin 5. Chronic diastolic congestive heart failure - stable 6. Obstructive sleep apnea - patient is on CPAP at night 7. Schizophrenia - currently stable did continue patient psychotropic medications 8. Dyslipidemia -patient is on statin therapy, continued at home dose 9. Obesity with BMI of 32.4 -weight loss advised 10. DVT prophylaxis -SC Lovenox Medications at Discharge Home Medications cholecalciferol (vitamin D3) 25 mcg (1,000 unit) capsule (Vitamin D3) 1,000 unitPO DAILY SUPPLEMENT 10/17/17 aspirin 325 mg tablet,delayed release 325 mg PO DAILY@1600 heart health 07/22/18 omeprazole 20 mg capsule,delayed release 20 mg PO DAILY indigestion 10/31/19 potassium chloride 20 mEq tablet,extended release(part/cryst) 20 meq PO DAILY supplement 11/16/19 clozapine 100 mg tablet 100 mg PO 4X/DAY SCHIZOPHRENIA 07/30/21 empagliflozin 10 mg tablet (Jardiance) 10 mg PO DAILY diabetes 07/30/21 furosemide 20 mg tablet 20 mg PO DAILY FLUID 07/30/21 insulin glargine 100 unit/mL (3 mL) subcutaneous pen (Lantus Solostar U-100 Insulin) 48 unit subcut DAILY@1600 DM 07/30/21 metoprolol succinate 25 mg tablet,extended release 24 hr 25 mg PO QHS HTN 07/30/21 clonazepam 0.5 mg tablet 1 mg PO BID schizophrenia 06/05/22 ferrous sulfate 325 mg (65 mg iron) tablet (Feosol) 325 mg PO .BID with meals anemia 06/05/22 pramipexole 0.5 mg tablet 0.25 mg PO QHS restless legs 06/05/22 atorvastatin 10 mg tablet 10 mg PO DAILY Cholesterol 08/14/23 guaifenesin 1,200 mg tablet, extended release 12 hr (Mucus Relief ER) 1,200 mg PO DAILY congestion 08/14/23 haloperidol 2 mg tablet 2 mg PO QHS anxiety 08/14/23 metformin 500 mg tablet,extended release 24 hr 1,000 mg PO BID Diabetes 08/14/23 benztropine 0.5 mg tablet 0.5 mg PO BID tremors 08/15/23 doxycycline hyclate 100 mg tablet 100 mg PO BID 7 days #14 tabs 08/16/23 guaifenesin 1,200 mg tablet, extended release 12 hr (Mucus Relief ER) 1,200 mg PO BID #20 tabs 08/16/23 prednisone 20 mg tablet 20 mg PO BID #14 tabs 08/16/23 Hospital Course Summary of Care Provided Minutes Spent on Discharge: 40 Physical Exam Narrative GENERAL: cooperative HEENT: Atraumatic; normocephalic EYES; Anicteric, Normal Conjunctiva NECK; supple, normal thyroid, RESPIRATORY: Diminished to auscultation CARDIOVASCULAR: Regular S1 S2, GI: soft, normoactive bowel sounds, : No Renal angle tenderness; EXTREMITIES: No edema, no clubbing, MUSCULOSKELETAL: no muscle wasting NEURO: Awake; no lateralizing signs. SKIN: No Rash PSYCH; Flat affect Weight / BMI Weight Weight: 76 kg Body Mass Index (BMI) 31.6 ABG / Lab / Microbiology Data 08/16/23 07:59 08/16/23 07:59 Laboratory: Laboratory Results - last 24 hr 08/15/23 11:50: POC Glucose 248 H 08/15/23 17:00: POC Glucose 186 H 08/15/23 20:16: POC Glucose 265 H 08/16/23 06:04: POC Glucose 183 H 08/16/23 07:59: WBC 15.7 H, RBC 4.49, Hgb 13.1, Hct 41.5, MCV 92.4, MCH 29.2, MCHC 31.6 L, RDW Std Deviation 46.0 H, RDW Coeff of Tyesha 13.5, Plt Count 220, MPV11.2, Immature Gran % (Auto) 0.700, Neut % (Auto) 81.8 H, Lymph % (Auto) 12.7 L,[place] % (Auto) 4.6, Eos % (Auto) 0.0, Baso % (Auto) 0.2, Absolute Neuts (auto) 12.8 H, Absolute Lymphs (auto) 2.00, Nucleated RBC % 0, Sodium 140, Potassium 4.2, Chloride 107, Carbon Dioxide 24.0, Anion Gap 9, BUN 16, Creatinine 0.51 L, Estim Creat Clear Calc 89.62, Est GFR (MDRD) Af Amer 158, Est GFR (MDRD) Non-Af 131, BUN/Creatinine Ratio 31.3 H, Glucose 173 H, Calcium 8.9, Phosphorus 3.1, Magnesium 2.4 Microbiology: Microbiology 08/14/23 23:00 Mucosa - Nasopharyngeal Respiratory Panel (PCR) - Final Rhinovirus 08/14/23 18:20 Nasal Secretion SARS-CoV-2 & FLU Antigen (Rapid) - Final D/C Instructions Discharge Diet: No restrictions Discharge Activity: Return to Normal Activity Call your doctor if you observe: Fever of 101 or Higher, Shortness of breath, Fainting spells and Chest pain Meaningful Use Info Meaningful Use Diagnoses (Choose all that apply): None applicable Discharge Plan Admission Admit Date/Time: 08/14/23 21:50 Attending Provider: Hesham Noguera Primary Care Provider: Aleksandar Jones Consulting Providers: Amy Moreno Discharge Orders/Prescriptions Prescriptions: New doxycycline hyclate 100 mg tablet 100 mg PO BID 7 Days Qty: 14 0RF prednisone 20 mg tablet 20 mg PO BID Qty: 14 0RF guaifenesin [Mucus Relief ER] 1,200 mg tablet extended release 12hr 1,200 mg PO BID Qty: 20 0RF Continued cholecalciferol (vitamin D3) [Vitamin D3] 1,000 UNIT capsule 1,000 unit PO DAILY aspirin 325 MG tablet,delayed release (DR/EC) 325 mg PO DAILY@1600 omeprazole 20 MG capsule,delayed release(DR/EC) 20 mg PO DAILY potassium chloride 20 MEQ tablet 20 meq PO DAILY metoprolol succinate 25 mg Tablet Extended Release 24 Hr 25 mg PO QHS Jardiance 10 mg Tablet 10 mg PO DAILY furosemide 20 mg tablet 20 mg PO DAILY insulin glargine [Lantus Solostar U-100 Insulin] 100 unit/mL (3 mL) insulin pen 48 unit SUBCUT DAILY@1600 clozapine 100 MG tablet 100 mg PO 4X/DAY clonazepam 0.5 mg Tablet 1 mg PO BID pramipexole 0.5 mg Tablet 0.25 mg PO QHS Rx Instructions: Take half table PO at bedtime ferrous sulfate [Feosol] 325 mg (65 mg iron) Tablet 325 mg PO .BID with meals metformin 500 mg tablet extended release 24 hr 1,000 mg PO BID haloperidol 2 mg tablet 2 mg PO QHS guaifenesin [Mucus Relief ER] 1,200 mg tablet extended release 12hr 1,200 mg PO DAILY atorvastatin 10 mg tablet 10 mg PO DAILY benztropine 0.5 mg tablet 0.5 mg PO BID Referrals / Follow Up: Aleksandar Jones MD [Primary Care Provider] - Disposition Disposition (needs filled in before D/C Order can be placed): Home, Self Care Charges/Coding Visit Charges Inpatient E&M: 20020 Disch Hosp >30min 08/16/23 1028 <Electronically signed by Hesham Noguera MD> Cosigner Signature (if applicable): CC: Dr. Hesham Noguera MD; Dr. Aleksandar Jones MD~ Signed [facility] Work Phone: 1(137) 472-754211-04-2023 Progress note Author Hesham Noguera [facility] August 16, 2023 10:11am Note Date/Time August 16, 2023 7 :08am [facility] Medical Records Department [address] [place] [address] Progress Note - Hospitalist 08/16/23 0708 MR#: [id number] Acct: [id number] Name: BRENDA LE Rep #:[id number] : 1965 57 From: Hesham Noguera MD PCP: Dr. Aleksandar Jones MD Status:ADM I N Location: [place] [address] Reason for Visit Reason for Visit: Diagnoses Chronic obstructive pulmonary disease with (acute) exacerbation (08/14/23) Subjective Subjective Patient seen breathing much improved. Patient back to baseline plan is for patient to be assessed for possible disc Objective Data Objective Data Vital Signs: Vital Signs Temp Pulse Resp BP Pulse Ox O2 Del Method O2 Flow Rate 97.8 F 87 18 131/84 H 95 CPAP 3 08/16/23 03:00 08/16/23 03:00 08/16/23 03:00 08/16/23 03:00 08/16/23 03:00 08/16/23 03:00 08/15/23 22:07 Oxygen Flow Rate (L/min) 3 Oxygen Delivery Method CPAP Weight: 76 kg Body Mass Index (BMI) 31.6 Intake & Output: Intake and Output for Last 24 Hours 08/14/23 08/15/23 08/16/23 23:59 23:59 23:59 Intake Total 1000 / 1000 2100 / 2500 400 / 400 Balance 1000 / 1000 2100 / 2500 400 / 400 Lab / Micro Data 08/16/23 07:59 08/16/23 07:59 Labs: Laboratory Results - last 24 hr 08/15/23 06:26: POC Glucose 167 H 08/15/23 06:55: WBC 13.6 H, RBC 4.53, Hgb 13.3, Hct 41.3, MCV 91.2, MCH 29.4, MCHC 32.2, RDW Std Deviation 44.7 H, RDW Coeff of Tyesha 13.5, Plt Count 180, MPV 10.9, Immature Gran % (Auto) 0.400, Neut % (Auto) 86.8 H, Lymph % (Auto) 11.1 L,[place] % (Auto) 1.6, Eos % (Auto) 0.0, Baso % (Auto) 0.1, Absolute Neuts (auto) 11.8 H, Absolute Lymphs (auto) 1.50, Nucleated RBC % 0, Sodium 137, Potassium 3.3 L, Chloride 105, Carbon Dioxide 24.0, Anion Gap 8, BUN 13, Creatinine 0.42 L, Estim Creat Clear Calc 108.83, Est GFR (MDRD) Af Amer 196, Est GFR (MDRD) Non-Af 162, BUN/Creatinine Ratio 30.7 H, Glucose 161 H, Calcium 8.6, Total Bilirubin0.70, AST 32, ALT 75 H, Alkaline Phosphatase 148 H, Total Protein 7.5, Albumin 3.2, Globulin 4.3 H, Albumin/Globulin Ratio 0.7 L 08/15/23 11:50: POC Glucose 248 H 08/15/23 17:00: POC Glucose 186 H 08/15/23 20:16: POC Glucose 265 H 08/16/23 06:04: POC Glucose 183 H Micro: Microbiology 08/14/23 23:00 Mucosa - Nasopharyngeal Respiratory Panel (PCR) - Final Rhinovirus 08/14/23 18:20 Nasal Secretion SARS-CoV-2 & FLU Antigen (Rapid) - Final Radiography Diagnostic Testing: Radiology Impression Chest X-Ray 08/15/23 05:20 IMPRESSION: Persistent interstitial thickening which may represent edema or inflammatory change. Electronically Signed: Shoaib Arnett MD at 8:32 EDT , Physical Exam Narrative GENERAL: cooperative HEENT: Atraumatic; normocephalic EYES; Anicteric, Normal Conjunctiva NECK; supple, normal thyroid, RESPIRATORY: Diminished to auscultation CARDIOVASCULAR: Regular S1 S2, GI: soft, normoactive bowel sounds, : No Renal angle tenderness; EXTREMITIES: No edema, no clubbing, MUSCULOSKELETAL: no muscle wasting NEURO: Awake; no lateralizing signs. SKIN: No Rash PSYCH; Flat affect Assessment & Plan Assessment/Plan (1) COPD exacerbation: PLAN: Plan Patient is a 57-year-old lady admitted with progressive shortness of breath diagnosed with COPD with acute exacerbation admitted to monitored bed for further management 1. COPD with acute exacerbation ?Managed with aerosol treatment and steroid as well as antibiotics in addition to supplemental oxygen. ? 08/16/2023 patient back to baseline 2. Dyslipidemia -Patient is on statin therapy, continued at home dose 3. Diabetes mellitus type II -patient's oral hypoglycemics held. Placed on long acting insulin, Accu-Cheks a.c. and at bedtime and covered with sliding scale insulin 4. Anxiety attack ? is on Klonopin 5. Chronic diastolic congestive heart failure - stable 6. Obstructive sleep apnea - patient is on CPAP at night 7. Schizophrenia - currently stable did continue patient psychotropic medications 8. Dyslipidemia -patient is on statin therapy, continued at home dose 9. Obesity with BMI of 32.4 -weight loss advised 10. DVT prophylaxis -SC Lovenox Time spent in the patient's overall evaluation,decision-making process, review of diagnostic data, adjustment of management, discussion with other providers, nursing nursing and ancillary staff involved in patient's care documentation, 40minutes Charges/Coding Visit Charges Inpatient E&M: 20201 Subs Hosp L2 08/16/23 1011 <Electronically signed by Hesham Noguera MD> Cosigner Signature (if applicable): CC: ~ Signed [facility] Work Phone: [phone]) 417-558611-03-2023 Progress note Author Hesham Noguera [facility] August 15, 2023 9:29am Note Date/Time August 15, 2023 7 :27am [facility] Medical Records Department [address] [place] [address] Progress Note - Hospitalist 08/15/23726 MR#: [id number] Acct: [id number] Name: BRENDA LE Rep #:[id number] : 1965 57 From: Hesham Noguera MD PCP: Dr. Aleksandar Jones MD Status:ADM I N Location: [place] [address] Reason for Visit Reason for Visit: Diagnoses Chronic obstructive pulmonary disease with (acute) exacerbation (08/14/23) Subjective Subjective Patient is a 57-year-old lady admitted with progressive shortness of breath diagnosed with COPD with acute exacerbation admitted to monitored bed for further management Objective Data Objective Data Vital Signs: Vital Signs Temp Pulse Resp BP Pulse Ox O2 Del Method O2 Flow Rate 98.2 F 82 18 92/57 L 94 Nasal Cannula 3 08/15/23 06:20 08/15/23 06:20 08/15/23 06:20 08/15/23 06:20 08/15/23 06:20 08/15/23 06:20 08/15/23 06:20 Oxygen Flow Rate (L/min) 3 Oxygen Delivery Method Nasal Cannula Weight: 77.7 kg Body Mass Index (BMI) 32.3 Intake & Output: Intake and Output for Last 24 Hours 08/13/23 08/14/23 08/15/23 23:59 23:59 23:59 Intake Total 1000 / 1000 500 / 500 Balance 1000 / 1000 500 / 500 Lab / Micro Data 08/15/23 06:55 08/15/23 06:55 Labs: Laboratory Results - last 24 hr 08/14/23 18:20: WBC 13.2 H, RBC 4.85, Hgb 14.0, Hct 44.0, MCV 90.7, MCH 28.9, MCHC 31.8 L, RDW Std Deviation 44.6 H, RDW Coeff of Tyesha 13.4, Plt Count 182, MPV10.7, Immature Gran % (Auto) 0.400, Neut % (Auto) 79.4 H, Lymph % (Auto) 12.3 L,[place] % (Auto) 7.5, Eos % (Auto) 0.0, Baso % (Auto) 0.4, Absolute Neuts (auto) 10.5 H, Absolute Lymphs (auto) 1.62, Nucleated RBC % 0, Sodium 137, Potassium 3.8, Chloride 102, Carbon Dioxide 26.0, Anion Gap 9, BUN 15, Creatinine 0.68, Estim Creat Clear Calc 67.22, Est GFR (MDRD) Af Amer 114, Est GFR (MDRD) Non-Af 94, BUN/Creatinine Ratio 22.2 H, Glucose 153 H, Calcium 9.2, Total Bilirubin 0.70, AST 50 H, ALT 72 H, Alkaline Phosphatase 150 H, Troponin I High Sens < 3 L, B-Natriuretic Peptide 2.9, Total Protein 8.0, Albumin 3.8, Globulin 4.2, Albumin/Globulin Ratio 0.9 08/14/23 22:13: Procalcitonin 0.12 H 08/15/23 01:03: POC Glucose 227 H 08/15/23 06:26: POC Glucose 167 H Micro: Microbiology 08/14/23 23:00 Mucosa - Nasopharyngeal Respiratory Panel (PCR) - Final Rhinovirus 08/14/23 18:20 Nasal Secretion SARS-CoV-2 & FLU Antigen (Rapid) - Final Radiography Diagnostic Testing: Radiology Impression Chest X-Ray 08/14/23 18:11 IMPRESSION: Mild interstitial edema or infiltrates. Electronically Signed: Luis Camilo MD at 19:05 EDT , Physical Exam Narrative GENERAL: cooperative HEENT: Atraumatic; normocephalic EYES; Anicteric, Normal Conjunctiva NECK; supple, normal thyroid, RESPIRATORY: Diminished to auscultation CARDIOVASCULAR: Regular S1 S2, GI: soft, normoactive bowel sounds, : No Renal angle tenderness; EXTREMITIES: No edema, no clubbing, MUSCULOSKELETAL: no muscle wasting NEURO: Awake; no lateralizing signs. SKIN: No Rash PSYCH; Flat affect Assessment & Plan Assessment/Plan (1) COPD exacerbation: PLAN: Plan Patient is a 57-year-old lady admitted with progressive shortness of breath diagnosed with COPD with acute exacerbation admitted to monitored bed for further management 1. COPD with acute exacerbation ?Managed with aerosol treatment and steroid as well as antibiotics in addition to supplemental oxygen. 2. Dyslipidemia -Patient is on statin therapy, continued at home dose 3. Diabetes mellitus type II -patient's oral hypoglycemics held. Placed on long acting insulin, Accu-Cheks a.c. and at bedtime and covered with sliding scale insulin 4. Anxiety attack ? is on Klonopin 5. Chronic diastolic congestive heart failure - stable 6. Obstructive sleep apnea - patient is on CPAP at night 7. Schizophrenia - currently stable did continue patient psychotropic medications 8. Dyslipidemia -patient is on statin therapy, continued at home dose 9. Obesity with BMI of 32.4 -weight loss advised 10. DVT prophylaxis -SC Lovenox Time spent in the patient's overall evaluation,decision-making process, review of diagnostic data, adjustment of management, discussion with other providers, nursing nursing and ancillary staff involved in patient's care documentation, 40minutes Charges/Coding Visit Charges Inpatient E&M: 68464 Subs Hosp L2 08/15/23928 <Electronically signed by Hesham Noguera MD> Cosigner Signature (if applicable): CC: ~ Signed [facility] Work Phone: 1(761) 353-172211-03-2023 Progress note Author Amy Moreno [facility] August 15, 2023 6:28am Note Date/Time August 15, 2023 6 :28am [facility] Medical Records Department [address] [facility] [place] [address] Progress Note - Hospitalist 08/15/23627 MR#: [id number] Acct: [id number] Name: BRENDA LE Rep #:[id number] : 1965 57 From: Amy Moreno MD PCP: Dr. Aleksandar Jones MD Status:ADM I N Location: [place] [address] Hospitalist Note Resp panel with + rhino. 08/15/23627 <Electronically signed by Amy Moreno MD> Cosigner Signature (if applicable): CC: ~ Signed [facility] Work Phone: 1(248) 712-632511-03-2023 Discharge summary Author Jey Quesada [facility] August 14, 2023 10:27pm Note Date/Time August 14, 2023 6 :16pm [facility] Medical Records Department [address] [place] [address] Emergency Department Summary 08/14/23 MR#: [id number] Acct: [id number] Name: BRENDA LE Rep #:[id number] : 1965 57 From: Jey Quesada PCP: Dr. Aleksandar Jones MD Status:ADM I N Location: [address] History of Present Illness Chief Complaint: Shortness of Breath Narrative Narrative: 57-year-old female presenting with shortness of breath. She states has been having fever, chills, body aches, nasal congestion for a couple of days. She states she lives at the long term. She is been given ibuprofen. She requestedFlonase but was not given this. Patient states her Tmax was 102. She denies chest pain but is having shortness of breath. Has a history of COPD. [facility] Medical History (Updated 08/14/23 @ 22:[address] Amy Moreno MD) Anxiety and depression COPD (chronic obstructive pulmonary disease) GERD (gastroesophageal reflux disease) HTN (hypertension) Hyperlipidemia Obesity LIDA on CPAP Restless leg syndrome Schizophrenia Type 2 diabetes mellitus Home Medications cholecalciferol (vitamin D3) 25 mcg (1,000 unit) capsule (Vitamin D3) 1,000 unitPO DAILY SUPPLEMENT 10/17/17 [History Last Taken 07/30/21] aspirin 325 mg tablet,delayed release 325 mg PO DAILY@1600 heart health 07/22/18[History Last Taken 07/30/21] lubiprostone 24 mcg capsule (Amitiza) 24 mcg PO BID@0800,1600 bowels 07/22/18 [History Last Taken 07/30/21] omeprazole 20 mg capsule,delayed release 20 mg PO DAILY indigestion 10/31/19 [History Last Taken 07/30/21] potassium chloride 20 mEq tablet,extended release(part/cryst) 20 meq PO DAILY supplement 11/16/19 [History Last Taken 07/30/21] risperidone 1 mg tablet 2 mg PO QHS mood 11/16/19 [History Last Taken 07/29/21] clozapine 100 mg tablet 25 mg PO DAILY@0800 SCHIZOPHRENIA 07/30/21 [History Last Taken 07/30/21] clozapine 100 mg tablet 500 mg PO QHS SCHIZOPHRENIA 07/30/21 [History Last Taken 07/29/21] empagliflozin 10 mg tablet (Jardiance) 10 mg PO DAILY 07/30/21 [History Last Taken 07/30/21] furosemide 20 mg tablet 20 mg PO DAILY FLUID 07/30/21 [History Last Taken 07/30/21] insulin glargine 100 unit/mL (3 mL) subcutaneous pen (Lantus Solostar U-100 Insulin) 40 unit subcut DAILY@1600 DM 07/30/21 [History Last Taken 07/30/21] metoprolol succinate 25 mg tablet,extended release 24 hr 25 mg PO QHS 07/30/21 [History Last Taken 07/29/21] psyllium 1 packet PO QHS SUPPLEMENT 07/30/21 [History Last Taken 07/29/21] clonazepam 0.5 mg tablet 0.5 mg PO TID 06/05/22 [History Last Taken Unknown] ferrous sulfate 325 mg (65 mg iron) tablet (Feosol) 325 mg PO BID 06/05/22 [History Last Taken Unknown] glipizide 5 mg tablet 5 mg PO DAILY 06/05/22 [History Last Taken Unknown] metformin 500 mg tablet 500 mg PO BID 06/05/22 [History Last Taken Unknown] pramipexole 0.5 mg tablet 0.5 mg PO QHS 06/05/22 [History Last Taken Unknown] pravastatin 20 mg tablet 20 mg PO DAILY 06/05/22 [History Last Taken Unknown] Allergy/AdvReac Type Severity Reaction Status Date / Time No Known Allergies Allergy Verified 08/14/23 17:01 Family History (Updated 08/14/23 @ 21:[address] Amy Moreno MD) Mother Heart disease Hypertension Father COPD (chronic obstructive pulmonary disease) Cancer Surgical History (Updated 08/14/23 @ 21:[address] Amy Moreno MD) History of cholecystectomy History of mandibular surgery Social History (Updated 08/14/23 @ 21:[address] Amy Moreno MD) housing: other details: care home. Smoking Status: Former smoker how long ago did patient quit smoking: Quit 10 years prior to 08/14/23 presentation, 2 ppd since teen until quit. alcohol intake: never substance use type: does not use ROS ROS ED Constitutional Constitutional ED: Reports chills and fever(s) Eyes Eyes: Denies change in vision or diplopia ENT ENT ED: Reports rhinorrhea and other Cardiovascular Cardiovascular: Denies chest pain Respiratory/Chest Respiratory/Chest: Reports cough and dyspnea Gastrointestinal Gastrointestinal: Denies nausea or vomiting Genitourinary Genitourinary ED: Denies dysuria or hematuria Musculoskeletal Musculoskeletal: Reports myalgias; Denies arthralgias Integumentary Denies abscess or Abrasions Neurologic Neurologic: Reports headache(s) EXAM Physical Exam Const Vital Signs: 08/14/23 17:02 08/14/23 17:06 08/14/23 17:30 Temperature 97.4 F L 97.4 F L Temperature Source Temporal Temporal Pulse Rate 117 H 116 H Respiratory Rate 29 H 28 H Respiratory Effort Normal Respiratory Depth Normal Respiratory Pattern Normal Blood Pressure 140/85 H 137/79 H Blood Pressure Mean 103 98 Pulse Ox 95 94 Oxygen Delivery Method Room Air Room Air Room Air 08/14/23 18:11 08/14/23 18:29 08/14/23 19:24 Temperature Temperature Source Pulse Rate 114 H 112 H Respiratory Rate 18 26 H Respiratory Effort Respiratory Depth Respiratory Pattern Blood Pressure 117/69 Blood Pressure Mean 85 Pulse Ox 94 Oxygen Delivery Method Room Air Room Air Positive well nourished General Appearance ED: NAD HEENT Reports moist mucous membranes Eyes PERRL and EOMs intact bilaterally Resp Resp Narrative: Tachypnea Auscultation: wheezes expiratory wheezes Cardio regular rate Rate: tachycardic GI non-tender Neuro oriented x3 and CN's II-XII intact bilaterally Sensorium / Orientation: alert Psych Mood & Affect: anxious Skin no wounds MDM MDM MDM Narrative Medical decision making narrative: Patient presenting with shortness of breath, fever, chills, body aches. I suspect something viral. She states he was tested for COVID at her long term and was negative. Differential includes COVID-19, influenza, pneumonia, CHF, hyperglycemia, dehydration, electrolyte abnormalities, COPD exacerbation. Patient medicated with breathing treatments and Solu-Medrol. We will obtain a CBCto assess white blood cell count, hemoglobin, platelets. CMP to assess liver function, renal function, electrolytes. High-sensitivity troponin EKG to assessfor ischemia/dysrhythmia. Chest x-ray to rule out pneumonia. Patient will be tested for COVID and influenza. CBC shows slight leukocytosis at 13.2. Hemoglobin stable 14. Platelets are normal at 182. Renal function and electrolytes are normal. High-sensitivity troponin less than 3. Chest x-ray myinterpretation shows this to be infiltrates. BNP is normal at 2.9. AG sinus tachycardia with a ventricular to 104 bpm without sign of ischemic change or ectopy on my interpretation. After breathing treatments patient was ambulated in the hallway and desats to 88%. I think she benefit from inpatient care. Discussed with hospitalist for admission. Her COVID and influenza came back negative. Hospitalist was to hold off on antibiotics right now and will add acetone and to determine whether she wants antibiotics. Impression: 1. COPD exacerbation 2. Hypoxia Lab Data Attestation: I reviewed the patient's lab results. Labs: Laboratory Results - last 24 hr 08/14/23 18:20 WBC 13.2 H RBC 4.85 Hgb 14.0 Hct 44.0 MCV 90.7 MCH 28.9 MCHC 31.8 L RDW Std Deviation 44.6 H RDW Coeff of Tyesha 13.4 Plt Count 182 MPV 10.7 Immature Gran % (Auto) 0.400 Neut % (Auto) 79.4 H Lymph % (Auto) 12.3 L [place] % (Auto) 7.5 Eos % (Auto) 0.0 Baso % (Auto) 0.4 Absolute Neuts (auto) 10.5 H Absolute Lymphs (auto) 1.62 Nucleated RBC % 0 Sodium 137 Potassium 3.8 Chloride 102 Carbon Dioxide 26.0 Anion Gap 9 BUN 15 Creatinine 0.68 Estim Creat Clear Calc 67.22 Est GFR (MDRD) Af Amer 114 Est GFR (MDRD) Non-Af 94 BUN/Creatinine Ratio 22.2 H Glucose 153 H Calcium 9.2 Total Bilirubin 0.70 AST 50 H ALT 72 H Alkaline Phosphatase 150 H Troponin I High Sens < 3 L B-Natriuretic Peptide 2.9 Total Protein 8.0 Albumin 3.8 Globulin 4.2 Albumin/Globulin Ratio 0.9 Radiography Diagnostic Testing: Clinical Impression(s) from Imaging Studies Chest X-Ray 08/14/23 18:11 IMPRESSION: Mild interstitial edema or infiltrates. Electronically Signed: Luis Camilo MD at 19:05 EDT Reading Location ID and State: [facility] / [place] , Service support , Discharge Plan Triage Chief Complaint: Shortness of Breath ED Provider: Jey Quesada Dx/Rx/DC Orders Primary Care Provider: Aleksandar Jones What to do if you have Problems For any increased pain, shortness of breath, bleeding, nausea or vomiting, chestpain, or any unexpected problems, contact your Primary Care Provider. Call [facility] ([phone]) or report to the closest Emergency Room. Call 911 if necessary. 08/14/232226 <Electronically signed by Jey Quesada DO> Cosigner Signature (if applicable): CC: Dr. Aleksandar Jones MD ~ Signed [facility] Work Phone: 1(331) 377-978111-03-2023 History and physical note Author Amy Moreno [facility] August 14, 2023 10:20pm Note Date/Time August 14, 2023 1 0:20pm [facility] Medical Records Department [address] [place] [address] H&P Exam - Hospitalist 08/14/232207 MR#: [id number] Acct: [id number] Name: BRENDA LE Rep #:[id number] : 1965 57 From: Amy Moreno MD PCP: Dr. Aleksandar Jones MD Status:REG E R Location: ED HPI - General General Date of Admission: 08/14/23 Date of Service: 08/14/23 Chief Complaint: Dyspnea, cough not markedly productive, congestion, fever, chills, wheezing. HPI Narrative The patient is a 57 y/o F w/ PMHx: GERD, RLS, Chronic transaminitis/elevated alkphos, LIDA on CPAP, HTN, HLD, Anxiety and Depression/Schizophrenia unclear type, COPD w/ prior Chronic Hypoxic Respiratory Failure (3L NC) reported in her chart but currently upon presentation not using supplementation, Diabetes mellitus type II, Former Heavy Tobacco use, Obesity who presents to the [facility] ED on 08/14/23with history of 3 to 4 days of upper respiratory type symptoms including nasal congestion, rhinorrhea in addition to fever, chills, body aches as well as not markedly productive cough with wheezing not improving with worsening dyspnea sensation prompting eventual long term transition to the ED for evaluation. Patient notes Tmax at her long term 102. She is unsure if there have been other sick contacts at the long term. Work-up in the ED included 97.4, heart rate 117, BP 140/85, respiratory rate 29, 95% on room air with most recent vitalsigns heart rate 112, BP 117/69, respiratory rate 26, 94% on room air however patient was ambulated and did desaturate to 8788% with exertion but improved again with rest, CBC with WC 13.2, hemoglobin 14, platelet 182 with left shift, CMP with glucose 153, AST/ALT 50/72, alk phos 150, troponin less than 3, BNP 2.9otherwise hepatic profile not marked appearing, chest x-ray with mild interstitial edema versus infiltrate, rapid SARS COVID and influenza antigens negative, EKG with sinus tachycardia with no acute evidence of ischemia. In theED patient ministered normal saline bolus, albuterol and DuoNeb therapy, Solu-Medrol 125 mg IV x1 as well as Afrin nasal spray as patient complaining of significant nasal congestion. [facility] Medical History (Updated 08/14/23 @ 22:[address] Amy Moreno MD) Anxiety and depression COPD (chronic obstructive pulmonary disease) GERD (gastroesophageal reflux disease) HTN (hypertension) Hyperlipidemia Obesity LIDA on CPAP Restless leg syndrome Schizophrenia Type 2 diabetes mellitus Home Medications cholecalciferol (vitamin D3) 25 mcg (1,000 unit) capsule (Vitamin D3) 1,000 unitPO DAILY SUPPLEMENT 10/17/17 [History Last Taken 07/30/21] aspirin 325 mg tablet,delayed release 325 mg PO DAILY@1600 heart health 07/22/18[History Last Taken 07/30/21] lubiprostone 24 mcg capsule (Amitiza) 24 mcg PO BID@0800,1600 bowels 07/22/18 [History Last Taken 07/30/21] omeprazole 20 mg capsule,delayed release 20 mg PO DAILY indigestion 10/31/19 [History Last Taken 07/30/21] potassium chloride 20 mEq tablet,extended release(part/cryst) 20 meq PO DAILY supplement 11/16/19 [History Last Taken 07/30/21] risperidone 1 mg tablet 2 mg PO QHS mood 11/16/19 [History Last Taken 07/29/21] clozapine 100 mg tablet 25 mg PO DAILY@0800 SCHIZOPHRENIA 07/30/21 [History Last Taken 07/30/21] clozapine 100 mg tablet 500 mg PO QHS SCHIZOPHRENIA 07/30/21 [History Last Taken 07/29/21] empagliflozin 10 mg tablet (Jardiance) 10 mg PO DAILY 07/30/21 [History Last Taken 07/30/21] furosemide 20 mg tablet 20 mg PO DAILY FLUID 07/30/21 [History Last Taken 07/30/21] insulin glargine 100 unit/mL (3 mL) subcutaneous pen (Lantus Solostar U-100 Insulin) 40 unit subcut DAILY@1600 DM 07/30/21 [History Last Taken 07/30/21] metoprolol succinate 25 mg tablet,extended release 24 hr 25 mg PO QHS 07/30/21 [History Last Taken 07/29/21] psyllium 1 packet PO QHS SUPPLEMENT 07/30/21 [History Last Taken 07/29/21] clonazepam 0.5 mg tablet 0.5 mg PO TID 06/05/22 [History Last Taken Unknown] ferrous sulfate 325 mg (65 mg iron) tablet (Feosol) 325 mg PO BID 06/05/22 [History Last Taken Unknown] glipizide 5 mg tablet 5 mg PO DAILY 06/05/22 [History Last Taken Unknown] metformin 500 mg tablet 500 mg PO BID 06/05/22 [History Last Taken Unknown] pramipexole 0.5 mg tablet 0.5 mg PO QHS 06/05/22 [History Last Taken Unknown] pravastatin 20 mg tablet 20 mg PO DAILY 06/05/22 [History Last Taken Unknown] Allergy/AdvReac Type Severity Reaction Status Date / Time No Known Allergies Allergy Verified 08/14/23 17:01 Family History (Updated 08/14/23 @ 21:[address] Amy Moreno MD) Mother Heart disease Hypertension Father COPD (chronic obstructive pulmonary disease) Cancer Surgical History (Updated 08/14/23 @ 21:[address] Amy Moreno MD) History of cholecystectomy History of mandibular surgery Social History (Updated 08/14/23 @ 21:[address] Amy Moreno MD) housing: other details: care home. Smoking Status: Former smoker how long ago did patient quit smoking: Quit 10 years prior to 08/14/23 presentation, 2 ppd since teen until quit. alcohol intake: never substance use type: does not use ROS ROS Narrative Admission Review of Systems: CONSTITUTIONAL: No weight loss, + fever, chills, weakness or fatigue. HEENT: + Nasal congestion, rhinorrhea. Eyes: No visual loss, blurred vision, double vision or yellow sclerae. Ears, Nose, Throat: No hearing loss, sneezing. SKIN: No rash or itching, lesions, wounds. CARDIOVASCULAR: No chest pain, chest pressure or chest discomfort, palpitations,edema, orthopnea, syncopal events. RESPIRATORY: + shortness of breath, cough without marked sputum, wheezing. No hemoptysis. GASTROINTESTINAL: + anorexia. No nausea, vomiting or diarrhea, abdominal pain, melena, BRBPR. GENITOURINARY: No dysuria, frequency, urgency or retention. NEUROLOGICAL: No headache, dizziness, syncope, paralysis, ataxia, numbness or tingling in the extremities, focal weakness, change in bowel or bladder control,seizure. MUSCULOSKELETAL: + muscle, back pain, joint pain or stiffness. HEMATOLOGIC: + anemia. No bleeding or bruising. LYMPHATICS: No enlarged nodes. No history of splenectomy. PSYCHIATRIC: + history of depression and anxiety/schizophrenia. ENDOCRINOLOGIC: + reports of sweating, cold or heat intolerance. No polyuria or polydipsia. ALLERGIES: + rhinitis. Vital Signs Vital Signs Vital Signs: 08/14/23 17:02 08/14/23 17:06 08/14/23 17:30 Temperature 97.4 F L 97.4 F L Temperature Source Temporal Temporal Pulse Rate 117 H 116 H Respiratory Rate 29 H 28 H Respiratory Effort Normal Respiratory Depth Normal Respiratory Pattern Normal Blood Pressure 140/85 H 137/79 H Blood Pressure Mean 103 98 Pulse Ox 95 94 Oxygen Delivery Method Room Air Room Air Room Air 08/14/23 18:11 08/14/23 18:29 08/14/23 19:24 Temperature Temperature Source Pulse Rate 114 H 112 H Respiratory Rate 18 26 H Respiratory Effort Respiratory Depth Respiratory Pattern Blood Pressure 117/69 Blood Pressure Mean 85 Pulse Ox 94 Oxygen Delivery Method Room Air Room Air Weight Weight: 177 lb 11.081 oz Body Mass Index (BMI) 33.5 Physical Exam Narrative Physical Examination: General: Awake, alert, oriented to self, place and recent events, remains cooperative, laying flat on her side in the ED bed, fatigued and ill-appearing, no evidence of respiratory distress. Skin: Normal color, normal turgor, no icterus, no cyanosis. HEENT: AT/NC, EOMI, PERRLA, mildly dry MM, no carotid bruits or JVD noted; however, thickened neck makes evaluation difficult. Lungs: Diminished, greater bases, occasional end expiratory wheeze, coughing elicited with deep inspiratory effort, no obvious rales or rhonchi. Heart: Mildly tachycardic with regular rhythm; no gallop, rub audible. Abdomen: Soft, obese, NTTP, mildly hyperactive BS, no obvious distention or HSM appreciated however difficult given habitus. Extremities: No cyanosis, no clubbing, mild peripheral ankle not markedly pitting edema. Neurological: Patient awake, alert, oriented as noted, cognitive function suspect baseline intact; pupils equally reactive to light and accommodation, cranial nerves grossly normal, moving all 4 extremities, no focal deficits, strength moderately to severely global decrease secondary to acute complaints. Psychiatric: Affect appears flat, fatigued, ill-appearing, no acute evidence of depressive or anxiety feelings but does have notable underlying history. Results Lab / Micro Data 08/14/23 18:20 08/14/23 18:20 Labs: Laboratory Results - last 24 hr 08/14/23 18:20: WBC 13.2 H, RBC 4.85, Hgb 14.0, Hct 44.0, MCV 90.7, MCH 28.9, MCHC 31.8 L, RDW Std Deviation 44.6 H, RDW Coeff of Tyesha 13.4, Plt Count 182, MPV10.7, Immature Gran % (Auto) 0.400, Neut % (Auto) 79.4 H, Lymph % (Auto) 12.3 L,[place] % (Auto) 7.5, Eos % (Auto) 0.0, Baso % (Auto) 0.4, Absolute Neuts (auto) 10.5 H, Absolute Lymphs (auto) 1.62, Nucleated RBC % 0, Sodium 137, Potassium 3.8, Chloride 102, Carbon Dioxide 26.0, Anion Gap 9, BUN 15, Creatinine 0.68, Estim Creat Clear Calc 67.22, Est GFR (MDRD) Af Amer 114, Est GFR (MDRD) Non-Af 94, BUN/Creatinine Ratio 22.2 H, Glucose 153 H, Calcium 9.2, Total Bilirubin 0.70, AST 50 H, ALT 72 H, Alkaline Phosphatase 150 H, Troponin I High Sens < 3 L, B-Natriuretic Peptide 2.9, Total Protein 8.0, Albumin 3.8, Globulin 4.2, Albumin/Globulin Ratio 0.9 Micro: Microbiology 08/14/23 18:20 Nasal Secretion SARS-CoV-2 & FLU Antigen (Rapid) - Final Radiology Impression Chest X-Ray 08/14/23 18:11 IMPRESSION: Mild interstitial edema or infiltrates. Electronically Signed: Luis Camilo MD at 19:05 EDT , Assessment & Plan Assessment/Plan (1) COPD exacerbation: PLAN: Plan The patient is a 57 y/o F w/ PMHx: GERD, RLS, Chronic transaminitis/elevated alkphos, LIDA on CPAP, HTN, HLD, Anxiety and Depression/Schizophrenia unclear type, COPD w/ prior Chronic Hypoxic Respiratory Failure (3L NC) reported in her chart but currently upon presentation not using supplementation, Diabetes mellitus type II, Former Heavy Tobacco use, Obesity who presents to the [facility] ED on 08/14/23with history of 3 to 4 days of upper respiratory type symptoms including nasal congestion, rhinorrhea in addition to fever, chills, body aches as well as not markedly productive cough with wheezing not improving with worsening dyspnea sensation prompting eventual long term transition to the ED for evaluation. #1. Acute on Chronic COPD exacerbation w/ associated hypoxia, previous chart reported history of chronic hypoxic respiratory failure documented as using 3 L nasal cannula however this is remotely with visits in between noted to be on room air: CXR w/ mild interstitial edema or infiltrates however patient BNP not marked appearing, afebrile although does have white count and a left shift, willadmit to medical surgical floor given stable vital signs, continue oxygen supplementation with wean as able, maintain on ATC DuoNeb therapy, as needed albuterol, IV Solu-Medrol, head of bed, I-S parameters, will obtain sputum culture, full respiratory viral panel, procalcitonin and will hold off on immediate antibiotic therapy as certainly chest x-ray could be with a viral illness as well, if there is any indication of a bacterial etiology low threshold to add antibiotics. We will repeat chest x-ray in a.m. to assure not worsening. #2. Chronic mild transaminitis, elevated alk phos: Admission CMP with AST/LT 50/72, alk phos 150, patient with similar levels previously, appears chronic, unclear specific etiology, encourage continued outpatient follow-up and assessment. #3. Anxiety and depression/schizophrenia unclear type: We will continue patienthome psychiatric regimen including risperidone, clonazepam and clonazepam with recommended continued outpatient assessments and follow-up as previously arranged. #4. Diabetes mellitus type II: Hold oral home regimen, continue home insulin regimen, ADA diet, accu checks w/ ISS. #5. Hypertension: Continue home regimen including metoprolol, Lasix, PRN hydralazine. #6. Hyperlipidemia: We will continue patient on statin therapy. #7. Restless leg syndrome: We will continue patient home pramipexole regimen. #8. Obesity: Weight loss and lifestyle changes encouraged. #9. GERD: We will continue patient on PPI. #10. LIDA: CPAP nightly. #11. Former tobacco use: Encourage continued tobacco cessation. #12. DVT prophylaxis: Lovenox. #13. CODE STATUS: Full code. Charges/Coding Visit Charges Inpatient E&M: 04616 Init Hosp L3 08/14/232219 <Electronically signed by Amy Moreno MD> Cosigner Signature (if applicable): CC: Dr. Amy Moreno MD; Dr. Aleksandar Jones MD~ Signed [facility] Work Phone: 1(227) 723-344311-02-2023 Discharge summary Author Jey Quesada [facility] August 14, 2023 10:27pm Note Date/Time August 14, 2023 6 :16pm [facility] Medical Records Department [address] [place] [address] Emergency Department Summary 08/14/23 MR#: [id number] Acct: [id number] Name: BRENDA LE Shawanda Rep #:[id number] : 1965 57 From: Jey Quesada DO PCP: Dr. Aleksandar Jones MD Status:ADM I N Location: [place] [address] HPI History of Present Illness Chief Complaint: Shortness of Breath Narrative Narrative: 57-year-old female presenting with shortness of breath. She states has been having fever, chills, body aches, nasal congestion for a couple of days. She states she lives at the long term. She is been given ibuprofen. She requestedFlonase but was not given this. Patient states her Tmax was 102. She denies chest pain but is having shortness of breath. Has a history of COPD. [facility] Medical History (Updated 08/14/23 @ 22:[address] Amy Moreno MD) Anxiety and depression COPD (chronic obstructive pulmonary disease) GERD (gastroesophageal reflux disease) HTN (hypertension) Hyperlipidemia Obesity LIDA on CPAP Restless leg syndrome Schizophrenia Type 2 diabetes mellitus Home Medications cholecalciferol (vitamin D3) 25 mcg (1,000 unit) capsule (Vitamin D3) 1,000 unitPO DAILY SUPPLEMENT 10/17/17 [History Last Taken 07/30/21] aspirin 325 mg tablet,delayed release 325 mg PO DAILY@1600 heart health 07/22/18[History Last Taken 07/30/21] lubiprostone 24 mcg capsule (Amitiza) 24 mcg PO BID@0800,1600 bowels 07/22/18 [History Last Taken 07/30/21] omeprazole 20 mg capsule,delayed release 20 mg PO DAILY indigestion 10/31/19 [History Last Taken 07/30/21] potassium chloride 20 mEq tablet,extended release(part/cryst) 20 meq PO DAILY supplement 11/16/19 [History Last Taken 07/30/21] risperidone 1 mg tablet 2 mg PO QHS mood 11/16/19 [History Last Taken 07/29/21] clozapine 100 mg tablet 25 mg PO DAILY@0800 SCHIZOPHRENIA 07/30/21 [History Last Taken 07/30/21] clozapine 100 mg tablet 500 mg PO QHS SCHIZOPHRENIA 07/30/21 [History Last Taken 07/29/21] empagliflozin 10 mg tablet (Jardiance) 10 mg PO DAILY 07/30/21 [History Last Taken 07/30/21] furosemide 20 mg tablet 20 mg PO DAILY FLUID 07/30/21 [History Last Taken 07/30/21] insulin glargine 100 unit/mL (3 mL) subcutaneous pen (Lantus Solostar U-100 Insulin) 40 unit subcut DAILY@1600 DM 07/30/21 [History Last Taken 07/30/21] metoprolol succinate 25 mg tablet,extended release 24 hr 25 mg PO QHS 07/30/21 [History Last Taken 07/29/21] psyllium 1 packet PO QHS SUPPLEMENT 07/30/21 [History Last Taken 07/29/21] clonazepam 0.5 mg tablet 0.5 mg PO TID 06/05/22 [History Last Taken Unknown] ferrous sulfate 325 mg (65 mg iron) tablet (Feosol) 325 mg PO BID 06/05/22 [History Last Taken Unknown] glipizide 5 mg tablet 5 mg PO DAILY 06/05/22 [History Last Taken Unknown] metformin 500 mg tablet 500 mg PO BID 06/05/22 [History Last Taken Unknown] pramipexole 0.5 mg tablet 0.5 mg PO QHS 06/05/22 [History Last Taken Unknown] pravastatin 20 mg tablet 20 mg PO DAILY 06/05/22 [History Last Taken Unknown] Allergy/AdvReac Type Severity Reaction Status Date / Time No Known Allergies Allergy Verified 08/14/23 17:01 Family History (Updated 08/14/23 @ 21:[address] Amy Moreno MD) Mother Heart disease Hypertension Father COPD (chronic obstructive pulmonary disease) Cancer Surgical History (Updated 08/14/23 @ 21:[address] Amy Moreno MD) History of cholecystectomy History of mandibular surgery Social History (Updated 08/14/23 @ 21:[address] Amy Moreno MD) housing: other details: care home. Smoking Status: Former smoker how long ago did patient quit smoking: Quit 10 years prior to 08/14/23 presentation, 2 ppd since teen until quit. alcohol intake: never substance use type: does not use ROS ROS ED Constitutional Constitutional ED: Reports chills and fever(s) Eyes Eyes: Denies change in vision or diplopia ENT ENT ED: Reports rhinorrhea and other Cardiovascular Cardiovascular: Denies chest pain Respiratory/Chest Respiratory/Chest: Reports cough and dyspnea Gastrointestinal Gastrointestinal: Denies nausea or vomiting Genitourinary Genitourinary ED: Denies dysuria or hematuria Musculoskeletal Musculoskeletal: Reports myalgias; Denies arthralgias Integumentary Denies abscess or Abrasions Neurologic Neurologic: Reports headache(s) EXAM Physical Exam Const Vital Signs: 08/14/23 17:02 08/14/23 17:06 08/14/23 17:30 Temperature 97.4 F L 97.4 F L Temperature Source Temporal Temporal Pulse Rate 117 H 116 H Respiratory Rate 29 H 28 H Respiratory Effort Normal Respiratory Depth Normal Respiratory Pattern Normal Blood Pressure 140/85 H 137/79 H Blood Pressure Mean 103 98 Pulse Ox 95 94 Oxygen Delivery Method Room Air Room Air Room Air 08/14/23 18:11 08/14/23 18:29 08/14/23 19:24 Temperature Temperature Source Pulse Rate 114 H 112 H Respiratory Rate 18 26 H Respiratory Effort Respiratory Depth Respiratory Pattern Blood Pressure 117/69 Blood Pressure Mean 85 Pulse Ox 94 Oxygen Delivery Method Room Air Room Air Positive well nourished General Appearance ED: NAD JOSE Reports moist mucous membranes Eyes PERRL and EOMs intact bilaterally Resp Resp Narrative: Tachypnea Auscultation: wheezes expiratory wheezes Cardio regular rate Rate: tachycardic GI non-tender Neuro oriented x3 and CN's II-XII intact bilaterally Sensorium / Orientation: alert Psych Mood & Affect: anxious Skin no wounds MDM MDM MDM Narrative Medical decision making narrative: Patient presenting with shortness of breath, fever, chills, body aches. I suspect something viral. She states he was tested for COVID at her long term and was negative. Differential includes COVID-19, influenza, pneumonia, CHF, hyperglycemia, dehydration, electrolyte abnormalities, COPD exacerbation. Patient medicated with breathing treatments and Solu-Medrol. We will obtain a CBCto assess white blood cell count, hemoglobin, platelets. CMP to assess liver function, renal function, electrolytes. High-sensitivity troponin EKG to assessfor ischemia/dysrhythmia. Chest x-ray to rule out pneumonia. Patient will be tested for COVID and influenza. CBC shows slight leukocytosis at 13.2. Hemoglobin stable 14. Platelets are normal at 182. Renal function and electrolytes are normal. High-sensitivity troponin less than 3. Chest x-ray myinterpretation shows this to be infiltrates. BNP is normal at 2.9. AG sinus tachycardia with a ventricular to 104 bpm without sign of ischemic change or ectopy on my interpretation. After breathing treatments patient was ambulated in the hallway and desats to 88%. I think she benefit from inpatient care. Discussed with hospitalist for admission. Her COVID and influenza came back negative. Hospitalist was to hold off on antibiotics right now and will add acetone and to determine whether she wants antibiotics. Impression: 1. COPD exacerbation 2. Hypoxia Lab Data Attestation: I reviewed the patient's lab results. Labs: Laboratory Results - last 24 hr 08/14/23 18:20 WBC 13.2 H RBC 4.85 Hgb 14.0 Hct 44.0 MCV 90.7 MCH 28.9 MCHC 31.8 L RDW Std Deviation 44.6 H RDW Coeff of Tyesha 13.4 Plt Count 182 MPV 10.7 Immature Gran % (Auto) 0.400 Neut % (Auto) 79.4 H Lymph % (Auto) 12.3 L [place] % (Auto) 7.5 Eos % (Auto) 0.0 Baso % (Auto) 0.4 Absolute Neuts (auto) 10.5 H Absolute Lymphs (auto) 1.62 Nucleated RBC % 0 Sodium 137 Potassium 3.8 Chloride 102 Carbon Dioxide 26.0 Anion Gap 9 BUN 15 Creatinine 0.68 Estim Creat Clear Calc 67.22 Est GFR (MDRD) Af Amer 114 Est GFR (MDRD) Non-Af 94 BUN/Creatinine Ratio 22.2 H Glucose 153 H Calcium 9.2 Total Bilirubin 0.70 AST 50 H ALT 72 H Alkaline Phosphatase 150 H Troponin I High Sens < 3 L B-Natriuretic Peptide 2.9 Total Protein 8.0 Albumin 3.8 Globulin 4.2 Albumin/Globulin Ratio 0.9 Radiography Diagnostic Testing: Clinical Impression(s) from Imaging Studies Chest X-Ray 08/14/23 18:11 IMPRESSION: Mild interstitial edema or infiltrates. Electronically Signed: Luis Camilo MD at 19:05 EDT Reading Location ID and State: [facility] / [place] , Service support , Discharge Plan Triage Chief Complaint: Shortness of Breath ED Provider: Jey Quesada Dx/Rx/DC Orders Primary Care Provider: Aleksandar Jones What to do if you have Problems For any increased pain, shortness of breath, bleeding, nausea or vomiting, chestpain, or any unexpected problems, contact your Primary Care Provider. Call [facility] ([phone]) or report to the closest Emergency Room. Call 911 if necessary. 08/14/232226 <Electronically signed by Jey Quesada DO> Cosigner Signature (if applicable): CC: Dr. Aleksandar Jones MD ~ Signed [facility] Work Phone: 1(700) 958-348110-31-2023 Miscellaneous Notes* Telephone Encounter - Anusha Hansen RN - 08/12/2023 10:57 AM EDT Patient has been identified by name and [...] you. Anusha Hansen RN. documented in this encounterCleveland [id number] Miscellaneous Notes* Telephone Encounter - Loree Chen RN - 07/16/2023 8:25 AM EDT Pharmacy electronically requests the following refill(s) Requested Prescriptions Pending Prescriptions Disp Refills metoprolol succinate ER (TOPROL XL) 25 mg 24 hr tablet [Pharmacy Med Name: Metoprolol Succinate ER 25MG TB24] 90 tablet 3 Sig: take 1 tablet by mouth every evening Loree Chen RN documented in this [facility]09-06-2023 Miscellaneous Notes* Telephone Encounter - Eunice Spivey RN - 06/18/2023 8:56 AM EDT Last Office Visit: 04/29/2023 Future Office Visit: 10/31/2022 Requested Prescriptions Pending Prescriptions Disp Refills omeprazole (PRILOSEC) 20 mg capsule 30 capsule 5 Sig: Take 1 capsule by mouth daily before breakfast. 1/2 hr before meal. Date of Last Labs: 04/29/2023 documented in this [facility]08-15-2023 Miscellaneous Notes* Telephone Encounter - Shanell Estes LPN - 05/27/2023 10:16 AM EDT [employer] phones requesting refills as follows: Requested Prescriptions Pending Prescriptions Disp Refills pramipexole (MIRAPEX) 0.5 mg tablet 30 tablet 5 Sig: Take 0.5 tablets by mouth daily at bedtime. DEBBY: 04/29/23 NOV: 10/31/23 Shanell Estes LPN documented in this [facility]08-14-2023 Miscellaneous Notes* Telephone Encounter - Nissa Ybarra OCCA - 05/26/2023 2:20 PM EDT TC to both patient and guardian who both verbalized understanding of providers message with no questions at this time. CHRIS Antunez * Telephone Encounter - Nissa Ybarra OCCA - 05/26/2023 2:18 PM EDT ----- Message from Radha Batista APRN.TANNING SALON ATTENDANT sent at 05/26/2023 2:00 PM EDT ----- Can please let patient/caregiver know that her stress testing was negative/normal. Radha Batista APRN.TANNING SALON ATTENDANT [facility] History of Present illness Narrative* Loree Chen RN - 05/26/2023 12:20 PM EDT RADIOLOGY SERVICE PROGRESS NOTE SERVICE DATE: 05/26/2023 SERVICE TIME: 814 PATIENT IDENTITY VERIFICATION COMPLETED USING TWO (2) METHODS: Patient confirmed name and Date of verbally. ALLERGIES AND MEDICATIONS REVIEWED BY: Loree Chen RN PROCEDURE TYPE: NM STRESS: 0.4 mg of Lexiscan was administered IV at 0831 over 10 Seconds by Loree Chen RN Reversal agent used:None LOT [id number] EXP 06/13/26 IV SITE: IV palced by nuclear tecnologist POST EXAM PIV STATUS: Discontinued by Joint Cutter Machine PATIENT DISCHARGED TO: Nuclear Medicine Department for post stress imaging A Diagnostic radioactive procedure has taken place, with no further precautions necessary other than routine body substance precautions. More information regarding radiation safety can be found usingthis link: [email or web address]%20Medicine%[email or web address] SIGNATURE: Loree Chen RN PATIENT NAME:Brenda Le DATE: 05/26/23 TIME: 12:20 PM documented in this [facility] History of Present illness Narrative* Sarina Lee, RT(R) - 05/26/2023 7:00 AM EDT RADIOLOGY SERVICE PROGRESS NOTE SERVICE DATE: 05/26/2023 [...] creatinine assay has traceable calibration to isotope dilution- mass spectrometry. Refer to KDIGO guidelines for clinical interpretation. In patients with unstable renal function, e.g. those with acute kidney injury, the eGFRmay not accurately reflect actual GFR. eGFR- Date Value Ref Range Status 07/19/2021 >60 Final P.O.C.T. RESULTS: N/A May 26, [address] PERFORMED: No IV SITE: Ambulatory: A peripheral IV was started in the Right antecubital site with a Angio cath: 22 gauge. POST EXAM PIV STATUS: Discontinued PROCEDURE TYPE: NM Stress: 11.8 mCi [id number] was administered IV for Rest Imaging at 07:20 by Sarina Lee. 31.3 mCi [id number] was administered IV for Stress Imaging at 08:31 by Sarina Lee. ADMINISTRATION TIME: PATIENT DISCHARGED TO: Ambulatory patient, left NM department area. A Diagnostic radioactive procedure has taken place, with no further precautions necessary other than routine body substance precautions. More information regarding radiation safety can be found usingthis link: [email or web address]%20Nuclear%20Medicine%[email or web address] SIGNATURE: RT Lemuel(R) PATIENT NAME: Brenda Le DATE: May 26, 2023 TIME: 09:40 AM PAGER/CONTACT #: documented in this [facility]-2023 Miscellaneous Notes* Telephone Encounter - Alma Smart RN - 05/23/2023 4:09 PM EDT [facility] pharmacy asking pcp to send order for a generic lancet for patient. Reports patient unable touse the one touch lancets with the system she is using now. Pended. Last appt in pcp office: 12-20-22 Next appt: 10-31-23 documented in this [facility]07-27-2023 Miscellaneous Notes* Telephone Encounter - Nisha Oneill Ma - 05/08/2023 9:48 AM EDT Patient was made aware of the results. Patient verbalizes understanding. Nisha Oneill Ma * Telephone Encounter - Nisha Oneill Ma - 05/08/2023 8:53 AM EDT ----- Message from Radha Batista APRN.TANNING SALON ATTENDANT sent at 05/07/2023 5:32 PM EDT ----- Can please let patient/onsite case manager know that her blood count was improved and stable. Radha Batista APRN.CNP documented in this [facility]07-18-2023 Instructions* Patient Instructions* Radha Batista APRN.CNP - 04/29/2023 3:22 PM EDT Get the labwork. Get the stool sample for hidden blood. Schedule the stress testing. We'll let you know when I receive the lab results back. documented in this [facility]07-[facility] History of Present illness Narrative* Radha Batista APRN.PAVITHRA - 04/29/2023 2:37 PM EDT This is a 57 year old female who presents today with: Patient presents with: 6 Month Exam HISTORY OF PRESENT ILLNESS: Brenda Le is a 57 year old female. Patient presents with: 6 Month Exam Presents today w/ social welfare research worker. Pt presents today for follow-up. Refers that she has been having "bouts of sickness." Social work reports that patient will have [...] her cpap on. Edema: No. Palpitations: Yes. "When I'm overexerted". Syncope: No. Headache: No. Dizziness: No. GERD: Controlled w/ PPI. Mood: Presents with social welfare research worker. Refers that there has been some medication [...] HISTORY Diagnosis Date Bilateral pneumonia 07/23/2018 Admit [facility]: pneumococcal suspected, neg culture. 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 Location:face omeprazole (PRILOSEC) 20 mg capsule Take 1 capsule by mouth daily before breakfast. 1/2 hr before meal. simethicone, chewable (GAS RELIEF, SIMETHICONE,) 80 mg chewable tablet Take 1 tablet by mouth every6 hours as needed. insulin needles, DISPOSABLE, (PEN NEEDLE) 31 gauge x 5/16" Use one needle per dose. Once per [...] daily at bedtime. Lancing Device with Lancets ([employer] PLUS LANC DEV) Check blood sugars twice [...] Patient to be measured for correct size. 20- 30 mmHg Dx: I50.31 Insulin Syringe-Needle U-100 (BD INSULIN SYRINGE) 1 mL 28 gauge x 1/2" syrg Use as directed daily COMPOUNDED PRESCRIPTION [...] disintegrating tablet Take 2 mg by mouth dailyat bedtime. albuterol HFA (PROAIR HFA) 90 mcg/actuation inhaler Inhale 2 Puffs as instructed every 4 hours as needed (FOR COUGH OR WHEEZE). desvenlafaxine ER (PRISTIQ) 50 mg 24 hr tablet Take 50 mg by mouth once daily. (Patient not taking:Reported on 12/03/2021 ) risperiDONE (RISPERDAL CONSTA) 50 [...] MG/5 ML INTRAVENOUS SYRINGE - INSERT IV ([place]) - IV DISCONTINUE Will also forward note to pt's locksmith apprentice for review. 2. Weight loss - ICD9: [...] which included preparing to see the patient, eeum-vi-ebox patient care, completing clinical documentation, obtaining and/or reviewing separately obtained history, performing a medically appropriate examination, counseling and educating the pat ient/family/caregiver, and ordering medications, tests, or procedures. documented in this encounterEast [facility]05-17-2023 Miscellaneous Notes* Telephone Encounter - Shanell Estes LPN - 02/26/2023 9:06 AM EDT [employer] phones requesting refills as follows: Requested Prescriptions Pending Prescriptions Disp Refills potassium chloride ER (KLOR-CON) 20 mEq tablet 30 tablet 5 Sig: Take 1 tablet by mouth once daily. DEBBY: 12/20/22 (VV) NOV: 03/12/23 Last Refill: 09/11/22 #30 5 refills Shanell Estes LPN documented in this encounterEast [facility] Hospital05-05-2023 Miscellaneous Notes* Telephone Encounter - Maye Ferrer LPN - 02/14/2023 1:21 PM EDT Patient has been identified by name and [...] Not applicable Please advise. Thank you. Maye Ferrre LPN documented in this encounterEast [facility] Hospital04-20-2023 Miscellaneous Notes* Telephone Encounter - Anusha Hansen RN - 01/30/2023 9:00 AM EDT Patient has been identified by name and [...] you. Anusha Hansen RN documented in this encounterEast [facility] Hospital02-27-2023 Miscellaneous Notes* Telephone Encounter - Alma Smart RN - 12/09/2022 10:11 AM EST Patient has been identified by name and date of : Yes, Provider Dr. Jones Date 12-09-22 Time 10:12 am Pharmacy phones [...] you. Alma Smart RN documented in this encounterEast [facility] Hospital12-27-2022 Miscellaneous Notes* Telephone Encounter - Eunice Spivey RN - 10/08/2022 8:29 AM EST Last Office Visit: 08/28/2022 Future Office Visit: 03/12/2023 Requested Prescriptions Pending Prescriptions Disp Refills insulin needles, DISPOSABLE, (PEN NEEDLE) 31 gauge x 5/16" 100 Each 11 Sig: Use one needle per dose. Once per day. Date of Last Labs: 08/21/2022 documented in this encounterEast [facility] Hospital12-23-2022 Miscellaneous Notes* Telephone Encounter - Shanell Zuniga - 10/04/2022 10:48 AM EST Patient has been identified by name and date of : Yes Last office visit in this department: 08/28/2022 RX INSTRUCTIONS: Patient aware RX will be sent to pharmacy. No need to notify patient. Patient phones requesting refills as follows: Requested Prescriptions No prescriptions requested or ordered in this encounter Please review and advise. Shanell Zuniga documented in this encounterEast [facility] Regional Hospital11-30-2022 Miscellaneous Notes* Telephone Encounter - Shanell Estes LPN - 09/11/2022 2:26 PM EST [facility] pharmacy calling for refills DEBBY: 08/28/22 NOV: 03/12/23 Last Refill: [employer] 10/09/21 #30 11 refills Vit D3 10/09/21 #30 11 refills Potassium chl: 03/27/22 #30 5 refills Shanell Estes LPN documented in this encounterEast [facility] Hospital11-18-2022 Miscellaneous Notes* Telephone Encounter - Maye Ferrer LPN - 08/30/2022 4:42 PM EST Patient has been identified by name and [...] 07/26/2020 7.8 Please advise. Thank you. Maye eFrrer LPN documented in this encounterEast [facility] Hospital11-16-2022 Instructions* Patient Instructions* Radha Batista APRN.PAVITHRA - 08/28/2022 2:39 PM EST Continue same medications. Try holding milk products for a week and see if that helps. Try the eye gel at night. Start the metronidazole cream. You can try the tylenol/ibuprofen as needed for back pain. Also can try some heat and massage. Labs and recheck in 6 months. documented in this encounterEast [facility] Regional Hospital11-16-2022 History of Present illness Narrative* Radha Batista APRN.PAVITHRA - 08/28/2022 1:57 PM EST This is a 56 year old female who presents today with: Patient presents with: Recheck: 6 month follow up HISTORY OF PRESENT ILLNESS: Brenda Le is a 56 year old female. [...] HISTORY Diagnosis Date Bilateral pneumonia 07/23/2018 Admit [facility]: pneumococcal suspected, neg culture. 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 Once per [...] disintegrating tablet Take 2 mg by mouth dailyat bedtime. albuterol HFA (PROAIR HFA) 90 mcg/actuation [...] once daily. Per Dr. James Izquierdo Stocking,Knee,Regular,Med misc Patient to be measured for correct size. 20- 30 mmHg Dx: I50.31 Insulin Syringe-Needle U-100 (BD INSULIN SYRINGE) 1 mL 28 gauge x 1/2" syrg Use as directed daily COMPOUNDED PRESCRIPTION BIPAP of 09/19 on [address]L oxygen per Dr[address] James faganlafaxine ER (PRISTIQ) 50 mg 24 hr tablet Take 50 mg by mouth once daily. (Patient not taking:Reported on 12/03/2021 ) Lancets lancets test BS [...] improvement. Radha Batista APRN.PAVITHRA documented in this encounterEast [facility] Hospital11-07-2022 Miscellaneous Notes* Telephone Encounter - Brandy Mark LPN - 08/19/2022 4:17 PM EST Patient has been identified by name and date of : Yes Pharmacy phones for refill(s): Requested Prescriptions Pending Prescriptions Disp Refills Lancing Device with Lancets (ONET[employer] DELICA PLUS LANC DEV) 100 Each 5 [...] you. Brandy Mark LPN documented in this encounterEast [facility] Hospital11-03-2022 Miscellaneous Notes* Telephone Encounter - Keila Zuniga - 08/15/2022 9:54 AM EDT Patient has been identified by name and [...] with food. Please review and advise. Keila Zuniga documented in this encounterEast [facility] Hospital11-01-2022 Miscellaneous Notes* Telephone Encounter - Zaira Humphreys LPN - 08/13/2022 10:00 AM EDT Patient's request for medication is as follows: Requested Prescriptions Pending Prescriptions Disp Refills metoprolol succinate ER (TOPROL XL) 25 mg 24 hr tablet [Pharmacy Med Name: Metoprolol Succinate ER 25MG TB24] 90 tablet 3 Sig: TAKE 1 TABLET BY MOUTH EVERY EVENING Last seen 06/03/2022 in [place]. Follow up scheduled for 06/02/2023. Prescription(s) as above. Please process accordingly. Zaira Humphreys LPN documented in this encounterEast Ohio Regional Hospital10-27-2022 Instructions* Patient Instructions* Zaira Mancilla APRN.TANNING SALON ATTENDANT - 08/08/2022 1:55 PM EDT [facility] [address] [place] [address] Emergency Department Diagnosis: Assessment CELLULITIS: Your exam [...] you are not current with your inmunizations.CONJUNCTIVITIS ([facility]) BASIC INFORMATION DESCRIPTION: An inflammation of [...] virus or allergy. At this point, an utility assembler may need to culture the cause or [...] increase -Vision is affected. documented in this encounterEast Ohio Regional Hospital10-27-2022 History of Present illness Narrative* Zaira Mancilla APRN.PAVITHRA - 08/08/2022 1:52 PM EDT This note was created using NoteWriter. Subjective Brenda Le is a 56 year old female. [...] to 4 months. Patient resides in a long term, ROS and HPI limited related to cognitive. Information supplemented by education analyst of long term. The history is provided by the patient and a caregiver. The history is limited by a developmental delay. No buffer automatic was used. Eye Problem This is a new problem. The current episode started yesterday. The problem occurs constantly. The problem has been gradually worsening. Pertinent negatives include no abdominal pain, anorexia, arthralgias, change in bowel habit, chest pain, chills, congestion, coughing, diaphoresis, fatigue, fever, headaches, joint swelling, myalgias, nausea, neck pain, numbness, rash, sore throat, swollen glands,urinary symptoms, vertigo, visual change, vomiting or weakness. Nothing aggravates the symptoms. She has tried nothing for the symptoms. The treatment provided no relief. PAST MEDICAL HISTORY Diagnosis Date Bilateral pneumonia 07/23/2018 Admit [facility]: pneumococcal suspected, neg culture. 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 Dx: E11.21 aspirin, enteric coated (ASPIRIN, ENTERIC COATED) 325 mg EC tablet Take 1 tablet by mouth once daily. Take with food. insulin needles, DISPOSABLE, (PEN NEEDLE) 31 gauge x 5/16" Use one needle per dose. Once per [...] disintegrating tablet Take 2 mg by mouth dailyat bedtime. cloZAPine (CLOZARIL) 100 mg tablet Take [...] Patient to be measured for correct size. 20- 30 mmHg Dx: I50.31 Insulin Syringe-Needle U-100 (BD INSULIN SYRINGE) 1 mL 28 gauge x 1/2" syrg Use as directed daily COMPOUNDED PRESCRIPTION BIPAP of 09/19 on [address]L oxygen per Dr[address] Ramirez desvenlafaxine ER (PRISTIQ) 50 mg 24 hr tablet Take 50 mg by mouth once daily. (Patient not taking:Reported on 12/03/2021 ) Lancets lancets test BS [...] up for recheck in two days Zaira Mancilla APRN.CNP documented in this encounterEast [facility] Hospital09-23-2022 Instructions* Patient Instructions* Zaira Mancilla APRN.CNP - 07/05/2022 1:15 PM EDT Keep the area free of further injury Topical antibiotic ointment Follow up with podiatry to have toenails clipped. documented in this encounterEast [facility] Regional Hospital09-23-2022 History of Present illness Narrative* Zaira Mancilla APRN.CNP - 07/05/2022 1:06 PM EDT Images from the original note were not included. This note was created using Accord[employer] Technologiesriter. Subjective Brenda Le is a 56 year old female. [...] Presents today with an aid from her long term " concerns for it being infected" Denies pain. Denies numbness or tingling Sees Dr. Salmon for podiatry at [facility] tried to call today, but they are closed. The history is provided by the patient. No buffer automatic was used. Pain (foot) Pain location: right [...] HISTORY Diagnosis Date Bilateral pneumonia 07/23/2018 Admit [facility]: pneumococcal suspected, neg culture. 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 20- 30 mmHg Dx: I50.31 COMPOUNDED PRESCRIPTION BIPAP of [...] mouth once daily. Lancing Device with Lancets ([employer] DELICA PLUS LANC DEV) Check blood sugars twice a day. Dx: E11.21 insulin needles, DISPOSABLE, (PEN NEEDLE) 31 gauge x 5/16" Use one needle per dose. Once per [...] disintegrating tablet Take 2 mg by mouth dailyat bedtime. albuterol HFA (PROAIR HFA) 90 mcg/actuation [...] INSULIN SYRINGE) 1 mL 28 gauge x 1/2" syrg Use as directed daily desvenlafaxine ER (PRISTIQ) 50 mg 24 hr tablet Take 50 mg by mouth once daily. (Patient not taking:Reported on 12/03/2021 ) Lancets lancets test BS [...] Neurological: Negative for dizziness, tingling, facial asymmetry, light- headedness, numbness and headaches. Hematological: Negative for adenopathy. [...] and be seen by Dr. Cintron. Zaira Mancilla APRN.CNP documented in this encounterEast [facility] Hospital09-08-2022 Miscellaneous Notes* Telephone Encounter - Cristal White RN - 06/20/2022 1:28 PM EDT Patient has been identified by name and [...] Value 07/19/2021 19 Please advise. Thank you. Cristal White RN documented in this encounterEast Ohio [facility] Hospital07-27-2022 Miscellaneous Notes* Telephone Encounter - Alma Smart RN - 05/08/2022 9:45 AM EDT [facility] reports the hospital in [place] only prescribed a month supply of the pended medications. Reports when the hospital sent Rx's for the month supply, it cancelled out pcp's Rx's. Will need new Rx's. Note: miralax was changed to packets and instructions state daily. Ferrous gluconate was changed toFerrous sulfate. [facility] asking to please send omar, so patient will have to take tomorrow. documented in this encounterEast Ohio Regional Hospital07-26-2022 Miscellaneous Notes* Telephone Encounter - Frank Joya LPN - 05/07/2022 2:30 PM EDT [facility] pharmacy notified. Frank Joya LPN * Telephone Encounter - Aleksandar Jones MD - 05/07/2022 1:43 PM EDT Continue meds. * Telephone Encounter - Chiara Suárez LPN - 05/07/2022 1:33 PM EDT Patient was released 04/16/2022 from [facility], Dr. Kessler called in RX Metformin 500mg, 2tablets BID & Ferrous Sulfate 325mg, 1 tablet once daily. [facility]/pharmacy is asking if Dr. Jones wants Patient to continue taking Metformin & Ferrous Sulfate. Please advise. Chiara Suárez LPN documented in this encounterEast Ohio Regional Hospital07-21-2022 Miscellaneous Notes* Telephone Encounter - Adrianne Saldivar LPN - 05/02/2022 9:46 AM EDT Called pharmacy and had tech check profile. They do have refill on metformin and iron. Confirmed with her these were not new orders. * Telephone Encounter - Kelsy Herrera Pss - 05/02/2022 9:28 AM EDT [facility] pharmacy calling stating patient was in [facility] and has been starteed o nthe follow medications. Please call in the following prescriptions: Atorvastatin 10 mg one tablet at bedtime Iron 325 mg one tablet twice daily Metformin 500 mg two tablets twice daily Patient uses pharmacy on file. documented in this encounterEast Ohio Regional Hospital06-15-2022 Miscellaneous Notes* Telephone Encounter - Татьяна Escobar Ma - 03/27/2022 3:07 PM EDT Last office visit: appt today with Radha Batista F/u scheduled: 07/18/22 Татьяна Escobar Ma * Telephone Encounter - Chica Todd - 03/27/2022 1:49 PM EDT Patient has been identified by name and [...] notify patient. Chica Todd documented in this encounterEast Ohio Regional Hospital06-15-2022 Instructions* Patient Instructions* Radha Batista APRN.CNP - 03/27/2022 2:34 PM EDT 1. Apply the triamcinolone ointment twice daily to the irritated skin from the cpap straps. Leave open to air during the day. In the evening, use guaze between face and cpap straps until healed. 2. Notify provider if no better or any worsening. documented in this encounterEast Ohio Regional Hospital06-15-2022 History of Present illness Narrative* Radha Batista APRN.CNP - 03/27/2022 2:19 PM EDT This is a 56 year old female who presents today with: Patient presents with: Rash: facial rash where the cpap masks sits on face HISTORY OF PRESENT ILLNESS: Brenda Le is a 56 year old female. [...] HISTORY Diagnosis Date Bilateral pneumonia 07/23/2018 Admit [facility]: pneumococcal suspected, neg culture. 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 Dx: E11.21 aspirin, enteric coated (ASPIRIN, ENTERIC COATED) 325 mg EC tablet Take 1 tablet by mouth once daily. Take with food. insulin needles, DISPOSABLE, (PEN NEEDLE) 31 gauge x 5/16" Use one needle per dose. Once per [...] disintegrating tablet Take 2 mg by mouth dailyat bedtime. cloZAPine (CLOZARIL) 100 mg tablet Take [...] instructed once daily. Per Dr. Ramirez Comp Stockmukesh,Knee,Regular,Med [facility] Patient to be measured for correct size. 20- 30 mmHg Dx: I50.31 Insulin Syringe-Needle U-100 (BD INSULIN SYRINGE) 1 mL 28 gauge x 1/2" syrg Use as directed daily COMPOUNDED PRESCRIPTION BIPAP of 09/19 on [address]L oxygen per Dr[address] Ramirez Lancortiz lancets test BS twice daily 2 days [...] mg by mouth once daily. (Patient not taking:Reported on 12/03/2021 ) No current facility-administered medications [...] as needed for worsening/no improvement. Radha Batista APRN.CNP documented in this encounterEast Ohio Regional Hospital04-20-2022 Instructions* Patient Instructions* Radha Batista APRN.CNP - 01/30/2022 1:40 PM EDT 1. Moist heat/ice to the affected area, as discussed. 2. Ibuprofen 200-400 mg every 8 hours as needed for pain. 3. Stretching and massage, as discussed. 4. Let us know if no better or any worsening. documented in this encounterEast Ohio Regional Hospital04-20-2022 History of Present illness Narrative* Radha Batista APRN.CNP - 01/30/2022 1:18 PM EDT This is a 56 year old female who presents today with: Patient presents with: Right Hip Pain: x 2 weeks HISTORY OF PRESENT ILLNESS: Brenda Le is a 56 year old female. [...] HISTORY Diagnosis Date Bilateral pneumonia 07/23/2018 Admit [facility]: pneumococcal suspected, neg culture. + rhinovirus Constipation [...] take as directed. Lancing Device with Lancets ([employer] PLUS LANC DEV) Check blood sugars twice a day. Dx: E11.21 aspirin, enteric coated (ASPIRIN, ENTERIC COATED) 325 mg EC tablet Take 1 tablet by mouth once daily. Take with food. insulin needles, DISPOSABLE, (PEN NEEDLE) 31 gauge x 5/16" Use one needle per dose. Once per [...] disintegrating tablet Take 2 mg by mouth dailyat bedtime. cloZAPine (CLOZARIL) 100 mg tablet Take [...] once daily. Per Dr. Ramirez Comp Stocking,Knee,Regular,Med [facility] Patient to be measured for correct size. 20- 30 mmHg Dx: I50.31 Insulin Syringe-Needle U-100 (BD INSULIN SYRINGE) 1 mL 28 gauge x 1/2" syrg Use as directed daily COMPOUNDED PRESCRIPTION BIPAP of 09/19 on [address]L oxygen per Dr[address] Sibilia Lancets lancets test BS twice daily 2 [...] mg by mouth once daily. (Patient not taking:Reported on 12/03/2021 ) No current facility-administered medications [...] as needed for worsening/no improvement. Radha Batista APRN.CNP The patient indicates understanding of these issues and agrees with the plan. This note was partially generated using Audience voice recognition system. Note was reviewed for accuracy. There may be minor misspellings or grammar miscues with Audience voice recognition. documented in this encounterEast Ohio Regional Hospital04-19-2022 Miscellaneous Notes* Telephone Encounter - Frank Joya LPN - 01/29/2022 1:00 PM EDT Yolie notified, appt scheduled. Frank Joya LPN * Telephone Encounter - Radha Batista APRN.CNP - 01/29/2022 12:29 PM EDT Needs an appointment to have back pain evaluated. Radha Batista APRN.CNP * Telephone Encounter - Brandy Mark LPN - 01/29/2022 10:11 AM EDT Yolie, [employer]/social welfare research worker [facility] calling and states that pt is having muscle/sciatic pain. Pt lives in a long term. This pain is upsetting, agitating an working on pt's mental health. Pt was on Tylenol but was discontinued due to fatty liver. Yolie is requesting something pt can take for the above pain, [id number] be sent to [facility] omar if possible. Even though OTC they would still need to have a prescription sent. Yolie will be calling back later to schedule an apt for pt. Please advise Yolie. Brandy Mark LPN documented in this encounterEast Ohio Regional Hospital04-04-2022 History of Present illness Narrative* Aleksandar Jones MD - 01/14/2022 3:21 PM EDT Patient presents with: 6 Month Exam HPI: Patient presents today for office visit for follow up. Accompanies by her onsite case manager. Seeing psych. Recently saw cardiology for tachycardia. [...] disintegrating tablet Take 2 mg by mouth dailyat bedtime. cloZAPine (CLOZARIL) 100 mg tablet Take [...] take as directed. Lancing Device with Lancets ([employer] DELICA PLUS LANC DEV) Check blood sugars twice a day. Dx: E11.21 insulin needles, DISPOSABLE, (PEN NEEDLE) 31 gauge x 5/16" Use one needle per dose. Once per [...] Patient to be measured for correct size. 20- 30 mmHg Dx: I50.31 Insulin Syringe-Needle U-100 (BD INSULIN SYRINGE) 1 mL 28 gauge x 1/2" syrg Use as directed daily COMPOUNDED PRESCRIPTION BIPAP of 09/19 on [address]L oxygen per Dr[address] James faganlafaxine ER (PRISTIQ) 50 mg 24 hr tablet Take 50 mg by mouth once daily. (Patient not taking:Reported on 12/03/2021 ) Lancets lancets test BS [...] HISTORY Diagnosis Date Bilateral pneumonia 07/23/2018 Admit [facility]: pneumococcal suspected, neg culture. + rhinovirus Constipation COPD (chronic obstructive pulmonary disease) ([facility]) Diabetes 1.5, managed as type 2 ([facility]) [facility], pt was on metformin for a while but taken off - pt never told if she had DM or not Major depressive disorder, recurrent episode, unspecified ([facility]) Nonspecific elevation of levels of transaminase or [...] Comment: leisaan- Teen yrs, but not now Reviewed current medications, allergies, past medical history, surgical history, family history andsocial history today. REVIEW OF SYSTEMS GI: Negative for has occasional runny bowels. .wlred All other reviewed and negative other than HPI. HEALTH MAINTENANCE: Reviewed health maintenance issues today and recommended the following in detail. DEPRESSION SCREENING -denies DIABETIC FOOT EXAM - sees podiatry regularly, Dr. Salmon in [place]. Saw in August LUNG CANCER SCREENING-will check [...] Chronic obstructive pulmonary disease, unspecified COPD type ([facility]) - ICD9: 496, ICD10: J44.9 - [...] - ICD9: 295.42, ICD10: F20.81 - per [facility] 9. Vitamin D deficiency - ICD9: 268.9, ICD10: E55.9 - will follow. 10. Advance care planning - ICD9: V65.49, ICD10: Z71.89 - done. Aleksandar Jones RTO in six months and prn. documented in this encounterEast Ohio Regional Hospital04-04-2022 Miscellaneous Notes* Telephone Encounter - Maye Ruckerramandeep CANO - 01/14/2022 10:09 AM EDT Patient has been identified by name and [...] you. Maye Ferrer LPN documented in this encounterEast Ohio Regional Hospital04-01-2022 Miscellaneous Notes* Telephone Encounter - Alma Smart RN - 01/11/2022 1:53 PM EDT Patient has been identified by name and [...] you. Alma Smart RN documented in this encounterEast Ohio Regional Hospital10-07-2021 History of Present illness Narrative* Neelima Amador RT(R) - 07/19/2021 3:10 PM EDT Radiology Service Progress Note PATIENT NAME: Brenda Le DATE OF SERVICE: July 19, 2021 TIME: 3:05 PM PATIENT IDENTITY VERIFICATION COMPLETED USING TWO (2) IDENTIFIERS: Name and Date of confirmedby patient verbally. FALL SCREENING: Has the patient had 2 falls in the last year or 1 fall with injury or currently using an Ambulatory Assistive Device (Walker, Cane, Wheelchair, Crutches, etc.)? No PATIENT GENDER DATA: Female. status: : No status: NO. PATIENT RELEVANT IMPLANT DATA REVIEWED: Not Applicable RADIOLOGY DEPARTMENT: General X-ray: Exam(s) Completed: Chest X-Ray PERIPHERAL IV DATA: Not applicable SIGNED BY: RT Sandra(R) July 19, 2021 3:05 PM documented in this encounterEast Ohio Regional Hospital08-09-2021 History of Past illness Narrative* Problem [...] check Routine gynecological examination 08/29/2009 11/26/2011 Overview: [facility], [facility] [place] DM w/o Complication Type II 11/08/200802/10 Other abnormal glucose 8 Overview: found at [facility], pt was on metformin for a while but taken off - pt never told if she had DM or not A1c 6.5% as of documented as of this encounter (statuses as of 01/14/2022) [facility]08-09-[facility] History of Past illness Narrative* Problem [...] check Routine gynecological examination 08/29/2009 11/26/2011 Overview: [facility], [facility] [place] DM w/o Complication Type II 11/08/200802/10 Other abnormal glucose 8 Overview: [facility], pt was on metformin for a while but taken off - pt never told if she had DM or not A1c 6.5% as of documented as of this encounter (statuses as of 01/29/2022) [facility] History of Past illness Narrative* Problem [...] 08/29/2009 11/26/2011 Overview: [facility] DM w/o Complication Type II 11/08/200802/10 Other abnormal glucose 8 Overview: found at [facility], pt was on metformin for a while but taken off - pt never told if she had DM or not A1c 6.5% as of documented as of this encounter (statuses as of 01/30/2022) [facility]08-09-2021 History of Past illness Narrative* Problem [...] care facility 08/29/2009 11/26/2011 Overview: 08/29/2009, from [facility] 05/03/2011, yearly check Routine gynecological examination 08/29/2009 11/26/2011 Overview: [facility], [facility] DM w/o Complication Type II 11/08/200802/10 Other abnormal glucose 8 Overview: found at [facility], pt was on metformin for a while but taken off - pt never told if she had DM or not A1c 6.5% as of documented as of this encounter (statuses as of 03/27/2022) [facility]08-09-2021 History of Past illness Narrative* Problem [...] check Routine gynecological examination 08/29/2009 11/26/2011 Overview: [facility], [facility] w/o Complication Type II 11/08/200802/10 Other abnormal glucose 8 Overview: [facility], pt was on metformin for a while but taken off - pt never told if she had DM or not A1c 6.5% as of documented as of this encounter (statuses as of 05/02/2022) [facility]08-09-2021 History of Past illness Narrative* Problem [...] check Routine gynecological examination 08/29/2009 11/26/2011 Overview: [facility], [facility] [place] DM w/o Complication Type II 11/08/200802/10 Other abnormal glucose 8 Overview: found at [facility], pt was on metformin for a while but taken off - pt never told if she had DM or not A1c 6.5% as of documented as of this encounter (statuses as of 05/07/2022) [facility]08-09[facility]2021 History of Past illness Narrative* Problem [...] check Routine gynecological examination 08/29/2009 11/26/2011 Overview: [facility], [facility] [place] DM w/o Complication Type II 11/08/200802/10 Other abnormal glucose 8 Overview: found at [facility], pt was on metformin for a while but taken off - pt never told if she had DM or not A1c 6.5% as of documented as of this encounter (statuses as of 05/08/2022) [facility]08-09[facility]2021 History of Past illness Narrative* Problem [...] check Routine gynecological examination 08/29/2009 11/26/2011 Overview: [facility], [facility] DM w/o Complication Type II 11/08/200802/10 Other abnormal glucose 8 Overview: found at [facility], pt was on metformin for a while but taken off - pt never told if she had DM or not A1c 6.5% as of documented as of this encounter (statuses as of 06/20/2022) [facility]08-[facility]2021 History of Past illness Narrative* Problem [...] Routine gynecological examination 08/29/2009 11/26/2011 Overview: [facility], [facility] DM w/o Complication Type II 11/08/200802/10 Other abnormal glucose 8 Overview: found at [facility], pt was on metformin for a while but taken off - pt never told if she had DM or not A1c 6.5% as of documented as of this encounter (statuses as of 07/05/2022) [facility]08-09-2021 History of Past illness Narrative* Problem [...] check Routine gynecological examination 08/29/2009 11/26/2011 Overview: [facility], [facility] DM w/o Complication Type II 11/08/200802/10 Other abnormal glucose 8 Overview: [facility], pt was on metformin for a while but taken off - pt never told if she had DM or not A1c 6.5% as of documented as of this encounter (statuses as of 08/08/2022) [facility]08-09[facility]21 History of Past illness Narrative* Problem [...] check Routine gynecological examination 08/29/2009 11/26/2011 Overview: [facility], [facility] w/o Complication Type II 11/08/200802/10 Other abnormal glucose 8 Overview: found at [facility], pt was on metformin for a while but taken off - pt never told if she had DM or not A1c 6.5% as of documented as of this encounter (statuses as of 08/12/2022) [facility]08-09[facility]21 History of Past illness Narrative* Problem [...] check Routine gynecological examination 08/29/2009 11/26/2011 Overview: [facility], [facility] [place] DM w/o Complication Type II 11/08/200802/10 Other abnormal glucose 8 Overview: found at [facility], pt was on metformin for a while but taken off - pt never told if she had DM or not A1c 6.5% as of documented as of this encounter (statuses as of 08/15/2022) [facility]08-09[facility]2021 History of Past illness Narrative* Problem [...] check Routine gynecological examination 08/29/2009 11/26/2011 Overview: [facility], [facility] DM w/o Complication Type II 11/08/200802/10 Other abnormal glucose 8 Overview: found at [facility], pt was on metformin for a while but taken off - pt never told if she had DM or not A1c 6.5% as of documented as of this encounter (statuses as of 08/15/2022) [facility]08-09-2021 History of Past illness Narrative* Problem [...] check Routine gynecological examination 08/29/2009 11/26/2011 Overview: [facility], [facility] w/o Complication Type II 11/08/200802/10 Other abnormal glucose 8 Overview: found at [facility], pt was on metformin for a while but taken off - pt never told if she had DM or not A1c 6.5% as of documented as of this encounter (statuses as of 08/19/2022) [facility]08-[facility]2021 History of Past illness Narrative* Problem [...] check Routine gynecological examination 08/29/2009 11/26/2011 Overview: [facility], [facility] [place] DM w/o Complication Type II 11/08/200802/10 Other abnormal glucose 8 Overview: found at [facility], pt was on metformin for a while but taken off - pt never told if she had DM or not A1c 6.5% as of documented as of this encounter (statuses as of 08/29/2022) [facility]08-[facility] History of Past illness Narrative* Problem [...] check Routine gynecological examination 08/29/2009 11/26/2011 Overview: [facility], [facility] DM w/o Complication Type II 11/08/200802/10 Other abnormal glucose 8 Overview: found at [facility], pt was on metformin for a while but taken off - pt never told if she had DM or not A1c 6.5% as of documented as of this encounter (statuses as of 08/30/2022) [facility]08-[facility]21 History of Past illness Narrative* Problem [...] Routine gynecological examination 08/29/2009 11/26/2011 Overview: [facility], [facility] [place] DM w/o Complication Type II 11/08/200802/10 Other abnormal glucose 8 Overview: found at [facility], pt was on metformin for a while but taken off - pt never told if she had DM or not A1c 6.5% as of documented as of this encounter (statuses as of 09/11/2022) [facility]08-09-2021 History of Past illness Narrative* Problem [...] check Routine gynecological examination 08/29/2009 11/26/2011 Overview: [facility], [facility] w/o Complication Type II 11/08/200802/10 Other abnormal glucose 8 Overview: found at [facility], pt was on metformin for a while but taken off - pt never told if she had DM or not A1c 6.5% as of documented as of this encounter (statuses as of 10/06/2022) [facility]08-09-2021 History of Past illness Narrative* Problem [...] check Routine gynecological examination 08/29/2009 11/26/2011 Overview: [facility], [facility] w/o Complication Type II 11/08/200802/10 Other abnormal glucose 8 Overview: [facility], pt was on metformin for a while but taken off - pt never told if she had DM or not A1c 6.5% as of documented as of this encounter (statuses as of 10/13/2022) [facility]08-09-2021 History of Past illness Narrative* Problem [...] Routine gynecological examination 08/29/2009 11/26/2011 Overview: [facility], [facility] w/o Complication Type II 11/08/200802/10 Other abnormal glucose 8 Overview: found at [facility], pt was on metformin for a while but taken off - pt never told if she had DM or not A1c 6.5% as of documented as of this encounter (statuses as of 12/09/2022) [facility]08-09-2021 History of Past illness Narrative* Problem [...] check Routine gynecological examination 08/29/2009 11/26/2011 Overview: [facility], [facility] DM w/o Complication Type II 11/08/200802/10 Other abnormal glucose 8 Overview: found at [facility], pt was on metformin for a while but taken off - pt never told if she had DM or not A1c 6.5% as of documented as of this encounter (statuses as of 01/30/2023) [facility]08-[facility]2021 History of Past illness Narrative* Problem [...] check Routine gynecological examination 08/29/2009 11/26/2011 Overview: [facility], [facility] w/o Complication Type II 11/08/200802/10 Other abnormal glucose 8 Overview: [facility], pt was on metformin for a while but taken off - pt never told if she had DM or not A1c 6.5% as of documented as of this encounter (statuses as of 02/14/2023) [facility]08-09-2021 History of Past illness Narrative* Problem [...] 08/29/2009 11/26/2011 Overview: [facility], [facility] w/o Complication Type II 11/08/200802/10 Other abnormal glucose 8 Overview: found at [facility], pt was on metformin for a while but taken off - pt never told if she had DM or not A1c 6.5% as of documented as of this encounter (statuses as of 02/26/2023) [facility]08-09-2021 History of Past illness Narrative* Problem [...] check Routine gynecological examination 08/29/2009 11/26/2011 Overview: [facility], [facility] w/o Complication Type II 11/08/2008 02/22/2014 Other abnormal glucose 04/29 Overview: found at [facility], pt was on metformin for a while but taken off - pt never told if she had DM or not A1c 6.5% as of documented as of this encounter (statuses as of 04/30/2023) [facility]08[facility]2021 History of Past illness Narrative* Problem [...] check Routine gynecological examination 08/29/2009 11/26/2011 Overview: [facility], [facility] w/o Complication Type II 11/08/2008 02/22/2014 Other abnormal glucose 04/29 Overview: found at [facility], pt was on metformin for a while but taken off - pt never told if she had DM or not A1c 6.5% as of documented as of this encounter (statuses as of 05/08/2023) [facility]08-[facility]2021 History of Past illness Narrative* Problem [...] check Routine gynecological examination 08/29/2009 11/26/2011 Overview: [facility], [facility] [place] DM w/o Complication Type II 11/08/2008 02/22/2014 Other abnormal glucose 04/29 Overview: found at [facility], pt was on metformin for a while but taken off - pt never told if she had DM or not A1c 6.5% as of documented as of this encounter (statuses as of 05/24/2023) [facility]08-09-2021 History of Past illness Narrative* Problem [...] check Routine gynecological examination 08/29/2009 11/26/2011 Overview: [facility], [facility] [place] DM w/o Complication Type II 11/08/2008 02/22/2014 Other abnormal glucose 04/29 Overview: found at [facility], pt was on metformin for a while but taken off - pt never told if she had DM or not A1c 6.5% as of documented as of this encounter (statuses as of 05/26/2023) [facility]08-[facility]-2021 History of Past illness Narrative* Problem [...] check Routine gynecological examination 08/29/2009 11/26/2011 Overview: [facility], [facility] [place] DM w/o Complication Type II 11/08/2008 02/22/2014 Other abnormal glucose 04/29 Overview: found at [facility], pt was on metformin for a while but taken off - pt never told if she had DM or not A1c 6.5% as of documented as of this encounter (statuses as of 05/27/2023) [facility]08-[facility] History of Past illness Narrative* Problem [...] check Routine gynecological examination 08/29/2009 11/26/2011 Overview: [facility], [facility] w/o Complication Type II 11/08/2008 02/22/2014 Other abnormal glucose 04/29 Overview: found at [facility], pt was on metformin for a while but taken off - pt never told if she had DM or not A1c 6.5% as of documented as of this encounter (statuses as of 05/28/2023) [facility]08[facility] History of Past illness Narrative* Problem [...] check Routine gynecological examination 08/29/2009 11/26/2011 Overview: [facility], [facility] DM w/o Complication Type II 11/08/2008 02/22/2014 Other abnormal glucose 04/29 Overview: found at [facility], pt was on metformin for a while but taken off - pt never told if she had DM or not A1c 6.5% as of documented as of this encounter (statuses as of 06/18/2023) [facility]08[facility] History of Past illness Narrative* Problem [...] check Routine gynecological examination 08/29/2009 11/26/2011 Overview: [facility], [facility] [place] DM w/o Complication Type II 11/08/2008 02/22/2014 Other abnormal glucose 04/29 Overview: found at [facility], pt was on metformin for a while but taken off - pt never told if she had DM or not A1c 6.5% as of documented as of this encounter (statuses as of 07/17/2023) [facility] History of Past illness Narrative* Problem [...] check Routine gynecological examination 08/29/2009 11/26/2011 Overview: [facility], [facility] [place] DM w/o Complication Type II 11/08/2008 02/22/2014 Other abnormal glucose 04/29 Overview: found at [facility], pt was on metformin for a while but taken off - pt never told if she had DM or not A1c 6.5% as of documented as of this encounter (statuses as of 07/21/2023) [facility] History of Past illness Narrative* Problem [...] check Routine gynecological examination 08/29/2009 11/26/2011 Overview: [facility], [facility] [place] DM w/o Complication Type II 11/08/2008 02/22/2014 Other abnormal glucose 04/29 Overview: [facility], pt was on metformin for a while but taken off - pt never told if she had DM or not A1c 6.5% as of documented as of this encounter (statuses as of 08/12/2023) [facility] History of Past illness Narrative* Problem [...] Routine gynecological examination 08/29/2009 11/26/2011 Overview: [facility], [facility] [place] DM w/o Complication Type II 11/08/2008 02/22/2014 Other abnormal glucose 04/29 Overview: [facility], pt was on metformin for a while but taken off - pt never told if she had DM or not A1c 6.5% as of documented as of this encounter (statuses as of 08/16/2023) [facility] History of Past illness Narrative* Problem [...] check Routine gynecological examination 08/29/2009 11/26/2011 Overview: [facility], [facility] [place] w/o Complication Type II 11/08/2008 02/22/2014 Other abnormal glucose 04/29 Overview: found at [facility], pt was on metformin for a while but taken off - pt never told if she had DM or not A1c 6.5% as of documented as of this encounter (statuses as of 08/20/2023) [facility] History of Past illness Narrative* Problem [...] check Routine gynecological examination 08/29/2009 11/26/2011 Overview: [facility], [facility] DM w/o Complication Type II 11/08/2008 02/22/2014 Other abnormal glucose 04/29 Overview: [facility], pt was on metformin for a while but taken off - pt never told if she had DM or not A1c 6.5% as of documented as of this encounter (statuses as of 08/21/2023) [facility] History of Past illness Narrative* Problem [...] Routine gynecological examination 08/29/2009 11/26/2011 Overview: [facility], [facility] w/o Complication Type II 11/08/2008 02/22/2014 Other abnormal glucose 04/29 Overview: found at [facility], pt was on metformin for a while but taken off - pt never told if she had DM or not A1c 6.5% as of documented as of this encounter (statuses as of 08/28/2023) [facility] History of Past illness Narrative* Problem [...] check Routine gynecological examination 08/29/2009 11/26/2011 Overview: [facility], [facility] w/o Complication Type II 11/08/2008 02/22/2014 Other abnormal glucose 04/29 Overview: found at [facility], pt was on metformin for a while but taken off - pt never told if she had DM or not A1c 6.5% as of documented as of this encounter (statuses as of 08/29/2023) [facility] History of Past illness Narrative* Problem [...] check Routine gynecological examination 08/29/2009 11/26/2011 Overview: [facility], [facility] w/o Complication Type II 11/08/2008 02/22/2014 Other abnormal glucose 04/29 Overview: found at [facility], pt was on metformin for a while but taken off - pt never told if she had DM or not A1c 6.5% as of documented as of this encounter (statuses as of 09/01/2023) [facility] History of Past illness Narrative* Problem [...] Routine gynecological examination 08/29/2009 11/26/2011 Overview: [facility], [facility] [place] DM w/o Complication Type II 11/08/2008 02/22/2014 Other abnormal glucose 04/29 Overview: found at [facility], pt was on metformin for a while but taken off - pt never told if she had DM or not A1c 6.5% as of documented as of this encounter (statuses as of 09/10/2023) [facility] History of Past illness Narrative* Problem [...] check Routine gynecological examination 08/29/2009 11/26/2011 Overview: [facility], [facility] [place] DM w/o Complication Type II 11/08/2008 02/22/2014 Other abnormal glucose 04/29 Overview: found at [facility], pt was on metformin for a while but taken off - pt never told if she had DM or not A1c 6.5% as of documented as of this encounter (statuses as of 09/10/2023) [facility] History of Past illness Narrative* Problem [...] check Routine gynecological examination 08/29/2009 11/26/2011 Overview: [facility], [facility] [place] w/o Complication Type II 11/08/2008 02/22/2014 Other abnormal glucose 04/29 Overview: found at [facility], pt was on metformin for a while but taken off - pt never told if she had DM or not A1c 6.5% as of documented as of this encounter (statuses as of 09/23/2023) [facility] History of Past illness Narrative* Problem [...] check Routine gynecological examination 08/29/2009 11/26/2011 Overview: [facility], [facility] [place] DM w/o Complication Type II 11/08/2008 02/22/2014 Other abnormal glucose 04/29 Overview: found at [facility], pt was on metformin for a while but taken off - pt never told if she had DM or not A1c 6.5% as of documented as of this encounter (statuses as of 11/20/2023) [facility] History of Past illness Narrative* Problem [...] check Routine gynecological examination 08/29/2009 11/26/2011 Overview: [facility], [facility] w/o Complication Type II 11/08/2008 02/22/2014 Other abnormal glucose 04/29 Overview: found at [facility], pt was on metformin for a while but taken off - pt never told if she had DM or not A1c 6.5% as of documented as of this encounter (statuses as of 12/02/2023) [facility] History of Past illness Narrative* Problem [...] check Routine gynecological examination 08/29/2009 11/26/2011 Overview: [facility], [facility] [place] w/o Complication Type II 11/08/2008 02/22/2014 Other abnormal glucose 04/29 Overview: found at [facility], pt was on metformin for a while but taken off - pt never told if she had DM or not A1c 6.5% as of documented as of this encounter (statuses as of 01/14/2024) [facility] History of Past illness Narrative* Problem [...] check Routine gynecological examination 08/29/2009 11/26/2011 Overview: [facility], [facility] [place] w/o Complication Type II 11/08/2008 02/22/2014 Other abnormal glucose 04/29 Overview: found at [facility], pt was on metformin for a while but taken off - pt never told if she had DM or not A1c 6.5% as of documented as of this encounter (statuses as of 01/22/2024) [facility] History of Past illness Narrative* Problem [...] 08/29/2009 11/26/2011 Overview: [facility], [facility] w/o Complication Type II 11/08/2008 02/22/2014 Other abnormal glucose 04/29 Overview: found at [facility], pt was on metformin for a while but taken off - pt never told if she had DM or not A1c 6.5% as of documented as of this encounter (statuses as of 01/30/2024) [facility]01[facility] History of Present illness Narrative* Neelima Amador (Rt), Tech - 10/18/2020 9:50 AM EST Radiology Service Progress Note PATIENT NAME: Brenda Le DATE OF SERVICE: October 18, 2020 TIME: 9:54 AM PATIENT IDENTITY VERIFICATION COMPLETED USING TWO (2) IDENTIFIERS: Name and Date of confirmedby patient verbally. FALL SCREENING: Has the patient had 2 falls in the last year or 1 fall with injury or currently using an Ambulatory Assistive Device (Walker, Cane, Wheelchair, Crutches, etc.)? No PATIENT GENDER DATA: Female. status: : No status: NO. PATIENT RELEVANT IMPLANT DATA REVIEWED: Not Applicable RADIOLOGY DEPARTMENT: General X-ray: Exam(s) Completed: Chest X-Ray PERIPHERAL IV DATA: Not applicable SIGNED BY: RT Sandra October 18, 2020 9:54 AM [facility] of Past illness Narrative* Problem Noted Date Resolved Date Pneumonia of both upper lobes due to infectious organism 08/06/2018 08/06/2018 Type 2 diabetes mellitus with renal manifestatio ns 10/29/2013 11/07/2017 Tobacco abuse 09/07/2012 11/07/2016 Routine general medical exam ination at a health care facility 08/29/2009 11/26/2011 Overview: 08/29/2009, [facility] 05/03/2011, yearly check Routine gynecological examination 08/29/2009 11/26/2011 Overview: [facility], [facility] DM w/o Complication Type II 11/08/200802/10 Other abnormal glucose 8 Overview: found at [facility], pt was on metformin for a while but taken off - pt never told if she had DM or not A1c 6.5% as of documented as of this encounter (statuses as of 01/11/2022) [facility] History of Past illness Narrative* Problem Noted Date Resolved Date Pneumonia of both upper lobes due to infectious organism 08/06/2018 08/06/2018 Type 2 diabetes mellitus with renal manifestatio ns 10/29/2013 11/07/2017 Tobacco abuse 09/07/2012 11/07/2016 Routine general medical exam ination at a health care facility 08/29/2009 11/26/2011 Overview: 08/29/2009, from [facility] 05/03/2011, yearly check Routine gynecological examination 08/29/2009 11/26/2011 Overview: [facility], [facility] DM w/o Complication Type II 11/08/200802/10 Other abnormal glucose 8 Overview: found at [facility], pt was on metformin for a while but taken off - pt never told if she had DM or not A1c 6.5% as of documented as of this encounter (statuses as of 01/14/2022) [facility] Bab[facility] Note Date/Time December 21, 2024 12: 14pm [facility] Medical Records Department [address] [place] [address] Emergency Department Summary 12/21/24 MR#: [id number] Acct: [id number] Name: BRENDA LE Rep #:[id number] : 1965 59 From: Babak Garcia DO PCP: Shelia Salmon, MANAGER MAIL Status:REG ER Location: ED HPI History of Present Illness Chief Complaint: Shortness of Breath Narrative Narrative: Patient is a 59-year-old female with past medical history of COPD, schizophrenia, LIDA on CPAP, anxiety, depression, type 2 diabetes, hypertension, hyperlipidemia who presented to the emergency department with chief complaint ofshortness of breath and cough. Patient states that she has been sick for past few days. She noted that recently she was in the hospital for pneumonia. Patient notes that she is very short of breath if she tries to lie down flat. Patient states that she is around 2 ill individuals right now in her long term. Patient states that she has been wheezing a lot lately. Per EMS they did not give any breathing treatments as her lungs were clear for them. [facility] Medical History Obesity (BMI 30-39.9) Hyponatremia Leukocytosis Respiratory insufficiency COPD exacerbation Pneumonia COPD exacerbation Schizophrenia LIDA on CPAP Obesity Anxiety and depression Type 2 diabetes mellitus COPD (chronic obstructive pulmonary disease) Restless leg syndrome GERD (gastroesophageal reflux disease) HTN (hypertension) Hyperlipidemia Home Medications ?Medication ?Instructions ?Recorded ?Last Taken ?Type cholecalciferol (vitamin D3) 25 1,000 unit PO DAILY ROSAS PPLEMENT 10/17/17 07/30/21 History mcg (1,000 unit) capsule (Vitamin D3) aspirin 325 mg tablet,delayed 325 mg PO DAILY@1600 [facility] 07/22/18 07/30/21 History release omeprazole 20 mg capsule,delayed 20 mg PO DAILY indige stion 10/31/19 07/30/21 History release potassium chloride 20 mEq 20 meq PO DAILY supplement 0 11/16/19 07/30/21 History tablet,extended release(part/cryst) clozapine 100 mg tablet 100 mg PO 4X/DAY SCHIZOPHREN IA 07/30/21 07/30/21 History empagliflozin 10 mg tablet 10 mg PO DAILY diabetes 07/30/21 History (Jardiance) furosemide 20 mg tablet 20 mg PO DAILY FLUID 1 07/30/21 History insulin glargine 100 unit/mL (3 48 unit subcut DAILY@1 600 DM 07/30/21 07/30/21 History mL) subcutaneous pen (Lantus Solostar U-100 Insulin) metoprolol succinate 25 mg 25 mg PO QHS HTN 07/30/21 1 History tablet,extended release 24 hr clonazepam 0.5 mg tablet 1 mg PO BID schizophrenia Unknown History ferrous sulfate 325 mg (65 mg 325 mg PO .BID with meal s anemia 06/05/22 Unknown History iron) tablet (Feosol) pramipexole 0.5 mg tablet 0.25 mg PO QHS restless legs 06/05/22 Unknown History atorvastatin 10 mg tablet 10 mg PO DAILY Cholesterol 1 10/14/22 Unknown History guaifenesin 1,200 mg tablet, 1,200 mg PO DAILY congest ion 08/14/23 Unknown History extended release 12 hr (Mucus Relief ER) haloperidol 2 mg tablet 2 mg PO QHS anxiety 08/14/23 Unknown History metformin 500 mg tablet,extended 1,000 mg PO BID Diabe janeth 08/14/23 Unknown History release 24 hr benztropine 0.5 mg tablet 0.5 mg PO BID tremors Unknown History ondansetron 4 mg disintegrating 4 mg PO Q8H PRN PRN Na usea #14 tabs 12/13/23 Unknown Rx tablet peg 3350-electrolytes 236 240 ml PO Q10M PRN #4,000 mL 12/13/23 Unknown Rx gram-22.74 gram-6.74 gram-5.86 gram solution (Golytely) ondansetron 4 mg disintegrating 4 mg PO Q8H PRN PRN Na usea #10 tabs 10/14/24 U nknown Rx tablet docusate sodium 100 mg capsule mg PO 11/09/24 Unknown History fluticasone furoate 100 inhalation DAILY 11/09/24 Un known History mcg-vilanterol 25 mcg/dose inhalation powder (Breo Ellipta) gabapentin 100 mg capsule mg 3XD 11/09/24 Unknown Hist ory guaifenesin 600 mg tablet, mg PO 11/09/24 Unknown Hist ory extended release 12 hr (Mucus Relief ER) omega-3 fatty acids-fish oil 300 cap 11/09/24 Unknown History mg-1,000 mg capsule paliperidone palmitate 234 mg/1.5 mg IM 11/09/24 Unkno wn History mL intramuscular syringe (Invega Sustenna) umeclidinium 62.5 mcg/actuation inhalation DAILY 11/09 Unknown History blister powder for inhalation (Incruse Ellipta) doxycycline hyclate 100 mg tablet 100 mg PO BID 7 days #14 tabs 11/12/24 Unknown Rx doxycycline monohydrate 100 mg 100 mg PO BID #11 tabs 11/12/24 Unknown Rx tablet prednisone 20 mg tablet 20 mg PO BID #14 tabs Unknown Rx prednisone 20 mg tablet 40 mg (2 x 20 mg) PO DAILY # 14 tabs 11/12/24 Unknown Rx ondansetron 4 mg disintegrating 4 mg PO Q6H PRN nausea and 12/21/24 Unknown Rx tablet vomiting #20 tabs prednisone 50 mg tablet 50 mg PO DAILY 4 days #4 tab s 12/21/24 Unknown Rx Allergy/AdvReac Type Severity Reaction Status Date / Time No Known Allergies Allergy Verified 11/09/24 18:15 Family History Mother Heart disease Hypertension Father COPD (chronic obstructive pulmonary disease) Cancer Surgical History History of mandibular surgery History of cholecystectomy Social History housing: other details: care home. Smoking Status: Former smoker how long ago did patient quit smoking: Quit 10 years prior to 08/14/23 presentation, 2 ppd since teen until quit. alcohol intake: never substance use type: does not use ROS ROS ED ROS Narrative Constitutional: Denies fevers, chills, headaches, lightness, dizziness Cardiovascular: Denies chest pain or palpitations Respiratory: Complains of shortness of breath as noted above Abdomen: Denies abdominal pain nausea vomit diarrhea : Denies urinary symptoms Neurological: Denies numbness, weakness, tingling Musculoskeletal: Denies back pain Skin: Denies rashes or lesions EXAM Physical Exam Narrative Exam Narrative: General: Patient was lying in bed rest comfortably did not appear to be in acutedistress Head: Atraumatic, normocephalic Eyes: PERRL bilaterally, EOMI bilateral, no conjunctival injection noted Neck: Soft, supple, trachea midline Cardiovascular: Regular rate and rhythm no murmurs gallops rubs noted Respiratory: Patient has mild end expiratory wheezing noted at the right lung base Abdomen: Soft, nondistended, tender to palpation Extremities: +5/5 strength noted in the bilateral upper and lower extremity, radial pulses +2/4 in the bilateral extremities, no pedal edema on exam Neurological: Patient following commands knew that she was at the hospital year is 2024 Skin: Warm, dry, intact no rashes or lesions noted Const Vital Signs: 12/21/24 08:44 12/21/24 08:47 12/21/24 08:48 Temperature 98 F Temperature Source Oral Pulse Rate 108 H Respiratory Rate 20 H Respiratory Effort Short of Breath Blood Pressure 152/88 H Blood Pressure Mean 109 Pulse Ox 95 96 Oxygen Delivery Method Room Air Room Air 12/21/24 09:13 12/21/24 10:43 12/21/24 12:00 Temperature Temperature Source Pulse Rate 108 H 78 78 Respiratory Rate 16 18 Respiratory Effort Blood Pressure 137/78 H 137/99 H Blood Pressure Mean 97 111 Pulse Ox 93 99 Oxygen Delivery Method Room Air MDM MDM MDM Narrative Medical decision making narrative: Patient is a 59-year-old female who presented to the emergency department chief complaint of shortness of breath. On the differential diagnose includes but notlimited to pneumonia, upper EXTR infection secondary viral etiology, CHF, pneumothorax. Once workup is obtained reviewed she will be reevaluated. Patient will be given DuoNeb and oral prednisone. Patient will not be given 30 cc/kg bolus of IV fluids as there is concern for a volume overload state. Patient's CBC was reviewed showed a white blood count of 12,000, hemoglobin stable 12.7, platelet count was noted to be 186. Patient sodium normal 135, potassium of 4, creatinine normal at 0.46. Patient lactic acid normal 1.4, AST and ALT are 20 and 33 respectively. Patient's troponin was noted to be 7 with adelta troponin obtained noted to be 7. Patient is EKG reviewed showed sinus tachycardia at the rate of 104 bpm. Patient proBNP was less than 36, urinalysisshowed thousand glucose but no evidence of infection. Patient's chest x-ray wasreviewed by myself and by radiology which showed pulmonary venous congestion. Patient tested positive for COVID here in the emergency department. Patient ambulated well here in the emergency department no hypoxia no tachycardia. Discussed the results with the patient she would like to go home at this point time. Patient will be given prednisone 50 mg for the next 4 days. Zofran prescription sent to the pharmacy as well. She is advised to return with worsening symptoms and concerns. She was advised to follow-up with her primary care physician outpatient setting. She is agreeable this plan all question concerns answered she was discharged home in stable condition. Lab Data Labs: Laboratory Results - last 24 hr 12/21/24 12/21/24 12/21/24 08:58 08:58 10:00 WBC Cancelled 12.3 H Corrected WBC Cancelled RBC Cancelled 4.30 Hgb Cancelled 12.7 Hct Cancelled 38.1 MCV Cancelled 88.6 MCH Cancelled 29.5 MCHC Cancelled 33.3 RDW Std Deviation Cancelled 46.4 H RDW Coeff of Tyesha Cancelled 14.3 Plt Count Cancelled 186 MPV Cancelled 9.4 Immature Gran % (Auto) Cancelled 0.400 Neut % (Auto) Cancelled 86.0 H Lymph % (Auto) Cancelled 8.6 L [place] % (Auto) Cancelled 4.7 Eos % (Auto) Cancelled 0.1 Baso % (Auto) Cancelled 0.2 Absolute Neuts (auto) Cancelled 10.6 H Absolute Lymphs (auto) Cancelled 1.06 Total Counted Cancelled Neutrophils % (Manual) Cancelled Band Neutrophils % Cancelled Lymphocytes % (Manual) Cancelled Monocytes % (Manual) Cancelled Eosinophils % (Manual) Cancelled Basophils % (Manual) Cancelled Metamyelocytes % Cancelled Myelocytes % Cancelled Promyelocytes % Cancelled Blast Cells % Cancelled Plasma Cell % (Manual) Cancelled Other Cells % Cancelled Nucleated RBC % Cancelled 0 Nucleated RBCs/100 WBC Cancelled Differential Comment Cancelled Diff Path Review Cancelled Hypersegmented Neuts Cancelled Atypical Lymphocytes Cancelled Reactive Lymphocytes Cancelled Smudge Cells Cancelled Toxic Granulation Cancelled Toxic Vacuolation Cancelled Dohle Bodies Cancelled Harjit Rods Cancelled Platelet Estimate Cancelled Plt Morphology Comment Cancelled RBC Morphology Cancelled Cancelled Polychromasia Cancelled Hypochromasia Cancelled Basophilic Stippling Cancelled Anisocytosis Cancelled Microcytosis Cancelled Macrocytosis Cancelled Spherocytes Cancelled Sickle Cells Cancelled Target Cells Cancelled Tear Drop Cells Cancelled Ovalocytes Cancelled Stomatocytes Cancelled Mtz-[place] Bodies Cancelled [place] Cells Cancelled Bite Cells Cancelled Crenated Cell Cancelled Acanthocytes (Spur) Cancelled Rouleaux Cancelled Schistocytes Cancelled PT 13.0 INR 1.0 APTT 35.4 Sodium Cancelled 135 Potassium Cancelled 4.0 Chloride Cancelled 102 Carbon Dioxide Cancelled 22.6 Anion Gap Cancelled 11 BUN Cancelled 9 Creatinine Cancelled 0.46 L Estim Creat Clear Calc Cancelled 127.81 Est GFR (MDRD) Non-Af Cancelled 109 BUN/Creatinine Ratio Cancelled 19.2 Glucose Cancelled 124 H Lactic Acid Cancelled 1.4 Calcium Cancelled 8.1 Total Bilirubin Cancelled 0.29 AST Cancelled 28 ALT Cancelled 33 Alkaline Phosphatase Cancelled 108 H Troponin T High Sens Troponin T Hi Sens 2 Hr NT pro BNP II Cancelled < 36 Total Protein Cancelled 6.3 Albumin Cancelled 3.7 Globulin Cancelled 2.6 Albumin/Globulin Ratio Cancelled 1.4 Urine Color Yellow Urine Clarity Clear Urine pH 6.5 Ur Specific [place] 1.010 Urine Protein 15 H Urine Glucose (UA) 1000 H Urine Ketones Negative Urine Occult Blood Negative Urine Nitrite Negative Urine Bilirubin Negative Urine Urobilinogen Normal Ur Leukocyte Esterase Negative Urine RBC 0 SEEN Urine WBC 0 SEEN Ur Squamous Epith Cells 0 SEEN Urine Bacteria 0 SEEN Urine Mucus 0 SEEN 12/21/24 12/21/24 10:15 11:23 WBC Corrected WBC RBC Hgb Hct MCV MCH MCHC RDW Std Deviation RDW Coeff of Tyesha Plt Count MPV Immature Gran % (Auto) Neut % (Auto) Lymph % (Auto) [place] % (Auto) Eos % (Auto) Baso % (Auto) Absolute Neuts (auto) Absolute Lymphs (auto) Total Counted Neutrophils % (Manual) Band Neutrophils % Lymphocytes % (Manual) Monocytes % (Manual) Eosinophils % (Manual) Basophils % (Manual) Metamyelocytes % Myelocytes % Promyelocytes % Blast Cells % Plasma Cell % (Manual) Other Cells % Nucleated RBC % Nucleated RBCs/100 WBC Differential Comment Diff Path Review Hypersegmented Neuts Atypical Lymphocytes Reactive Lymphocytes Smudge Cells Toxic Granulation Toxic Vacuolation Dohle Bodies Harjit Rods Platelet Estimate Plt Morphology Comment RBC Morphology Polychromasia Hypochromasia Basophilic Stippling Anisocytosis Microcytosis Macrocytosis Spherocytes Sickle Cells Target Cells Tear Drop Cells Ovalocytes Stomatocytes Mtz-[place] Bodies Sara Cells Bite Cells Crenated Cell Acanthocytes (Spur) Rouleaux Schistocytes PT INR APTT Sodium Potassium Chloride Carbon Dioxide Anion Gap BUN Creatinine Estim Creat Clear Calc Est GFR (MDRD) Non-Af BUN/Creatinine Ratio Glucose Lactic Acid Calcium Total Bilirubin AST ALT Alkaline Phosphatase Troponin T High Sens 7 Troponin T Hi Sens 2 Hr 7 NT pro BNP II Total Protein Albumin Globulin Albumin/Globulin Ratio Urine Color Urine Clarity Urine pH Ur Specific [place] Urine Protein Urine Glucose (UA) Urine Ketones Urine Occult Blood Urine Nitrite Urine Bilirubin Urine Urobilinogen Ur Leukocyte Esterase Urine RBC Urine WBC Ur Squamous Epith Cells Urine Bacteria Urine Mucus Radiography Diagnostic Testing: Clinical Impression(s) from Imaging Studies Chest X-Ray 12/21/24 08:48 IMPRESSION: Pulmonary venous congestion. Reading Location: [facility] Discharge Plan Triage Chief Complaint: Shortness of Breath ED Provider: Bbaak Garcia Dx/Rx/DC Orders Clinical Impression: COPD exacerbation, COVID-19 Prescriptions: New prednisone 50 mg tablet 50 mg PO DAILY 4 Days Qty: 4 0RF ondansetron 4 mg tablet,disintegrating 4 mg PO Q6H PRN (Reason: nausea and vomiting) Qty: 20 0RF No Action cholecalciferol (vitamin D3) [Vitamin D3] 1,000 UNIT capsule 1,000 unit PO DAILY aspirin 325 MG tablet,delayed release (DR/EC) 325 mg PO DAILY@1600 omeprazole 20 MG capsule,delayed release(DR/EC) 20 mg PO DAILY potassium chloride 20 MEQ tablet 20 meq PO DAILY metoprolol succinate 25 mg Tablet Extended Release 24 Hr 25 mg PO QHS Jardiance 10 mg Tablet 10 mg PO DAILY furosemide 20 mg tablet 20 mg PO DAILY insulin glargine [Lantus Solostar U-100 Insulin] 100 unit/mL (3 mL) insulin pen 48 unit SUBCUT DAILY@1600 clozapine 100 MG tablet 100 mg PO 4X/DAY clonazepam 0.5 mg Tablet 1 mg PO BID pramipexole 0.5 mg Tablet 0.25 mg PO QHS Rx Instructions: Take half table PO at bedtime ferrous sulfate [Feosol] 325 mg (65 mg iron) Tablet 325 mg PO .BID with meals metformin 500 mg tablet extended release 24 hr 1,000 mg PO BID haloperidol 2 mg tablet 2 mg PO QHS guaifenesin [Mucus Relief ER] 1,200 mg tablet extended release 12hr 1,200 mg PO DAILY atorvastatin 10 mg tablet 10 mg PO DAILY benztropine 0.5 mg tablet 0.5 mg PO BID ondansetron 4 mg tablet,disintegrating 4 mg PO Q8H PRN PRN (Reason: Nausea) Qty: 10 0RF ondansetron 4 mg tablet,disintegrating 4 mg PO Q8H PRN PRN (Reason: Nausea) Qty: 14 0RF peg 3350-electrolytes [Golytely] 236-22.74-6.74 -5.86 gram recon soln 240 ml PO Q10M PRN Qty: 4000 0RF Rx Instructions: until fecal effluent is clear docusate sodium 100 mg capsule PO gabapentin 100 mg capsule 3XD omega-3 fatty acids-fish oil 300-1,000 mg capsule Patient Comments: [NO ORIGINAL SIG] Invega Sustenna 234 mg/1.5 mL syringe IM fluticasone furoate-vilanterol [Breo Ellipta] 100-25 mcg/dose blister with device INHALATION DAILY guaifenesin [Mucus Relief ER] 600 mg tablet extended release 12hr PO Patient Comments: [NO ORIGINAL SIG] Incruse Ellipta 62.5 mcg/actuation blister with device INHALATION DAILY prednisone 20 mg tablet 20 mg PO BID Qty: 14 0RF Rx Instructions: Continue this prescription until it runs out then discontinue doxycycline hyclate 100 mg tablet 100 mg PO BID 7 Days Qty: 14 0RF Rx Instructions: Continue doxycycline for a total of 5 more days prednisone 20 mg tablet 40 mg PO DAILY Qty: 14 0RF Rx Instructions: 2 tablets once a day for 7 days then discontinue doxycycline monohydrate 100 mg tablet 100 mg PO BID Qty: 11 0RF Rx Instructions: 1 twice a day for 11 doses beginning 11/12/2024 then discontinue Primary Care Provider: Shelia Salmon Referrals: Shelia Salmon, MANAGER MAIL [Primary Care Provider] - Activity Restrictions/Additional Instructions: You tested positive for COVID-19 here in the emergency department. Start the steroid that was sent to your pharmacy tomorrow as you were given a dose here today already. Use Zofran as needed for nausea. Ensure adequate hydration. Return with worsening symptoms or any concerns. Follow-up with your doctor in outpatient setting. Print Language: Gabonese Disposition Disposition: Home, Self Care What to do if you have Problems For any increased pain, shortness of breath, bleeding, nausea or vomiting, chestpain, or any unexpected problems, contact your Primary Care Provider. Call [facility] ([phone]) or report to the closest Emergency Room. Call 911 if necessary. 12/21/24 1214 <Electronically signed by Babak Garcia DO> Cosigner Signature (if applicable): CC: ESEQUIEL Salmon ~ Signed [facility] Work Phone: Evaluation noteNo assessment information available [facility] Work Phone: Evaluation note* Diagnosis Chronic constipation Unspecified constipation [facility] Diagnosis Chronic idiopathic constipation Unspecified constipation Iron deficiency anemia, unspecified iron deficiency anemia type [facility]* Diagnosis Tachycardia- Primary Tachycardia, unspecified SVT (supraventricular tachycardia) ([facility]) Other specified cardiac dysrhythmias Acute diastolic CHF (congestive heart failure) (HCC) Acute diastolic heart failure Chronic obstructive pulmonary disease, unspecified COPD type (HCC) LIDA (obstructive sleep apnea) Obstructive sleep apnea (adult) (pediatric) Water intoxication Other fluid overload Type 2 diabetes mellitus with diabetic nephropathy, 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, chronic condition (HCC) Schizophreniform disorder, chronic condition Vitamin D deficiency Unspecified vitamin D deficiency Advance care planning Other specified counseling [facility] Diagnosis Right hip pain- Primary Pain in joint, pelvic region and thigh [facility] Diagnosis Skin irritation- Primary Unspecified disorder of skin and subcutaneous tissue Rosacea [facility] Diagnosis Chronic constipation Unspecified constipation [facility] Diagnosis Restless leg syndrome Restless legs syndrome (RLS) [facility]* Diagnosis Injury of toenail of right foot, initial encounter- Primary [facility] Diagnosis Conjunctivitis of left eye, unspecified conjunctivitis type- Primary Facial infection Other specified infectious and parasitic diseases [facility]* Diagnosis Encounter for screening mammogram for breast cancer [facility]* Diagnosis GERD without esophagitis Esophageal reflux Epigastric pain Abdominal pain, epigastric [facility]* Diagnosis Type 2 diabetes mellitus with diabetic nephropathy, with long-term current use of insulin (HCC)- Primary Schizophreniform disorder, chronic condition (HCC) Schizophreniform disorder, chronic condition Hyperlipidemia, unspecified hyperlipidemia type LIDA (obstructive sleep apnea) Obstructive sleep apnea (adult) (pediatric) Rosacea Upper back pain Gassiness Flatulence, eructation, and gas pain documented in this encounter [facility] note* Diagnosis Hyperlipidemia, unspecified hyperlipidemia type documented in this encounter [facility] note* Diagnosis Type 2 diabetes mellitus with diabetic nephropathy, with long-term current use of insulin ([facility]) [facility]* Diagnosis GERD without esophagitis Esophageal reflux Epigastric pain Abdominal pain, epigastric documented in this encounter [facility] note* Diagnosis COVID-19 documented in this encounter [facility] note* Diagnosis Chest pain, unspecified type- Primary Weight loss Loss of weight Type 2 diabetes mellitus with diabetic nephropathy, with long-term current use of insulin (HCC) Hyperlipidemia, unspecified hyperlipidemia type GERD without esophagitis Esophageal reflux Acute diastolic CHF (congestive heart failure) (HCC) Acute diastolic heart failure Schizophreniform disorder, chronic condition (HCC) Schizophreniform disorder, chronic condition Fatigue, unspecified type documented in this encounter [facility] note* Diagnosis Tachycardia- Primary Tachycardia, unspecified documented in this encounter [facility] note* Diagnosis Restless leg syndrome Restless legs syndrome (RLS) documented in this encounter [facility] note* Diagnosis Encounter for screening mammogram for breast cancer documented in this encounter [facility] note* Diagnosis Hyperlipidemia, unspecified hyperlipidemia type documented in this encounter [facility] note* Diagnosis Onset Date Resolution Status COPD exacerbation chronic [facility] Work Phone: Evaluation note* Diagnosis Type 2 diabetes mellitus with diabetic nephropathy, with long-term current use of insulin ([facility]) documented in this encounter [facility] note* Diagnosis Itching in the vaginal area- Primary Pruritus of genital organs [facility]* Diagnosis Type 2 diabetes mellitus with diabetic nephropathy, with long-term current use of insulin (HCC)- Primary documented in this encounter [facility] note* Diagnosis Onset Date Resolution Status COPD exacerbation resolved [facility] Work Phone: Evaluation note* Diagnosis Primary hypertension- Primary Unspecified essential hypertension Pure hypercholesterolemia SVT (supraventricular tachycardia) Other specified cardiac dysrhythmias [facility] Pain in both lower extremities GERD without esophagitis Esophageal reflux Epigastric pain Abdominal pain, epigastric [facility] Diagnosis Acute constipation- Primary Unspecified constipation Nasal dryness Other diseases of nasal cavity and sinuses Pain in both lower extremities Leg weakness, bilateral Other musculoskeletal symptoms referable to limbs Sedative, hypnotic or anxiolytic dependence, uncomplicated (HCC) Acute respiratory failure with hypoxia (HCC) Acute respiratory failure Chronic obstructive pulmonary disease, unspecified COPD type (HCC) SVT (supraventricular tachycardia) (HCC) Other specified cardiac dysrhythmias [facility] Leg weakness, bilateral Other musculoskeletal symptoms referable to limbs [facility] Diagnosis Leg weakness, bilateral- Primary Other musculoskeletal symptoms referable to limbs [facility] Diagnosis Type 2 diabetes mellitus with diabetic nephropathy, with long-term current use of insulin (HCC)- Primary [facility] Diagnosis Leg weakness, bilateral- Primary Other musculoskeletal symptoms referable to limbs [facility] Diagnosis Leg weakness, bilateral- Primary Other musculoskeletal symptoms referable to limbs [facility] Diagnosis Leg weakness, bilateral- Primary Other musculoskeletal symptoms referable to limbs [facility] Diagnosis Leg weakness, bilateral- Primary Other musculoskeletal symptoms referable to limbs [facility] Diagnosis Leg weakness, bilateral- Primary Other musculoskeletal symptoms referable to limbs [facility] Diagnosis Leg weakness, bilateral- Primary Other musculoskeletal symptoms referable to limbs Weakness of both lower extremities [facility] Diagnosis Fatigue, unspecified type- Primary Pain in both lower extremities Type 2 diabetes mellitus with diabetic nephropathy, with long-term current use of insulin (HCC) [facility] Diagnosis Weakness of both lower extremities- Primary [facility]* Diagnosis Type 2 diabetes mellitus with diabetic nephropathy, with long-term current use of insulin (HCC)- Primary Thrombocytopenia (HCC) Thrombocytopenia, unspecified Elevated liver enzymes Other nonspecific abnormal serum enzyme levels [facility]* Diagnosis Weakness of both lower extremities- Primary [facility]* Diagnosis Weakness of both lower extremities- Primary Leg weakness, bilateral Other musculoskeletal symptoms referable to limbs [facility]* Diagnosis Uncontrolled type 2 diabetes mellitus with hyperglycemia (HCC)- Primary Thrombocytopenia (HCC) Thrombocytopenia, unspecified Elevated liver enzymes Other nonspecific abnormal serum enzyme levels [facility] Diagnosis Uncontrolled type 2 diabetes mellitus with hyperglycemia (HCC) [facility]* Diagnosis Weakness of both lower extremities- Primary [facility]* Diagnosis Weakness of both lower extremities- Primary [facility] Diagnosis Weakness of both lower extremities- Primary [facility]* Diagnosis Uncontrolled type 2 diabetes mellitus with hyperglycemia (HCC)- Primary [facility]* Diagnosis Weakness of both lower extremities- Primary [facility]* Diagnosis Folliculitis- Primary Other specified disease of hair and hair follicles Fatigue, unspecified type [facility] Diagnosis Restless leg syndrome Restless legs syndrome (RLS) [facility]* Diagnosis GERD without esophagitis Esophageal reflux Epigastric pain Abdominal pain, epigastric [facility] Diagnosis Uncontrolled type 2 diabetes mellitus with hyperglycemia (HCC) [facility]* Diagnosis Acute constipation Unspecified constipation [facility]* Diagnosis Encounter for screening mammogram for breast cancer [facility]* Diagnosis Uncontrolled type 2 diabetes mellitus with hyperglycemia (HCC)- Primary Encounter for immunization Need for other specified prophylactic vaccination against single bacterial disease Fatigue, unspecified type Type 2 diabetes mellitus with diabetic nephropathy, with long-term current use of insulin (HCC) Chronic obstructive pulmonary disease, unspecified COPD type (HCC) Schizophreniform disorder, chronic condition (HCC) Schizophreniform disorder, chronic condition Primary hypertension Unspecified essential hypertension Vitamin D deficiency Unspecified vitamin D deficiency Pure hypercholesterolemia [facility]* Diagnosis Hyperlipidemia, unspecified hyperlipidemia type [facility] Diagnosis Behavioral change Unspecified disturbance of conduct Altered mental status, unspecified altered mental status type [facility]* Diagnosis SOB (shortness of breath) Shortness of breath Cough [facility] Diagnosis Pain of right eye- Primary Pain in or around eye [facility]* Diagnosis Acute diastolic CHF (congestive heart failure) (HCC) Acute diastolic heart failure documented in this encounter [facility] note* Diagnosis LIDA (obstructive sleep apnea)- Primary Obstructive sleep apnea (adult) (pediatric) Acute exacerbation of chronic obstructive pulmonary disease (COPD) (HCC) Obstructive chronic bronchitis with exacerbation Tachycardia Tachycardia, unspecified Tinea cruris Dermatophytosis of groin and perianal area [facility] Diagnosis Uncontrolled type 2 diabetes mellitus with hyperglycemia ([facility]) [facility] Diagnosis Chronic obstructive pulmonary disease, unspecified COPD type (HCC)- Primary Leg pain, bilateral Pain in limb Encounter for immunization Need for other specified prophylactic vaccination against single bacterial disease [facility] Diagnosis Primary hypertension- Primary Unspecified essential hypertension Pure hypercholesterolemia SVT (supraventricular tachycardia) ([facility]) Other specified cardiac dysrhythmias Tachycardia Tachycardia, unspecified [facility] Diagnosis Nasal dryness Other diseases of nasal cavity and sinuses [facility] Diagnosis Leg pain, bilateral- Primary Pain in limb [facility]* Diagnosis Leg pain, bilateral Pain in limb GERD without esophagitis Esophageal reflux Epigastric pain Abdominal pain, epigastric [facility]* Diagnosis Weakness of both lower extremities- Primary Uncontrolled type 2 diabetes mellitus with hyperglycemia (HCC) Hyperlipidemia, unspecified hyperlipidemia type Leg pain, bilateral Pain in limb Weakness of both lower extremities [facility]* Diagnosis Weakness of both lower extremities [facility] Diagnosis Hyponatremia- Primary Hyposmolality and/or hyponatremia Leg pain, bilateral Pain in limb [facility] Diagnosis Pneumonia of right lung due to infectious organism, unspecified part of lung- Primary Fever, unspecified fever cause Acute cough URI, acute Acute upper respiratory infections of unspecified site Acute cough documented in this encounter [facility] note* Diagnosis Acute cough documented in this encounter [facility] note* Diagnosis Acute constipation Unspecified constipation documented in this encounter [facility] note* Diagnosis Leg pain, bilateral- Primary Pain in limb Bacterial pneumonia Bacterial pneumonia, unspecified Bacterial pneumonia Bacterial pneumonia, unspecified documented in this encounter [facility] note* Diagnosis Bacterial pneumonia Bacterial pneumonia, unspecified documented in this encounter [facility] note* Diagnosis Leg pain, bilateral Pain in limb documented in this encounter [facility] note* Diagnosis COVID- Primary Acute diastolic CHF (congestive heart failure) (HCC) Acute diastolic heart failure Pure hypercholesterolemia SVT (supraventricular tachycardia) (HCC) Other specified cardiac dysrhythmias Chronic obstructive pulmonary disease, unspecified COPD type (HCC) LIDA (obstructive sleep apnea) Obstructive sleep apnea (adult) (pediatric) Gastritis without bleeding, unspecified chronicity, unspecified gastritis type Water intoxication Other fluid overload Type 2 diabetes mellitus with diabetic nephropathy, with long-term current use of insulin (HCC) Vitamin D deficiency Unspecified vitamin D deficiency Obesity, Class II, BMI 35-39.9 Obesity, unspecified Degeneration of intervertebral disc of lumbar region with discogenic back pain and lower extremity pain Elevated liver enzymes Other nonspecific abnormal serum enzyme levels Schizophreniform disorder, chronic condition (HCC) Schizophreniform disorder, chronic condition documented in this encounter [facility] note* Diagnosis Leg pain, bilateral Pain in limb documented in this encounter [facility] note* Diagnosis Exposure to hepatitis B- Primary Contact with or exposure to other viral diseases [facility]* Diagnosis Hyponatremia- Primary Hyposmolality and/or hyponatremia Leukocytosis, unspecified type documented in this encounter [facility] note* Diagnosis False-positive serological test result [R76.8]- Primary [facility]* Diagnosis Hyponatremia- Primary Hyposmolality and/or hyponatremia [facility] Diagnosis Tobacco abuse Tobacco use disorder [facility]* Diagnosis Hepatitis B core antibody positive- Primary Other and unspecified nonspecific immunological findings [facility] Diagnosis Water intoxication- Primary Other fluid overload Vitamin D deficiency Unspecified vitamin D deficiency Hepatitis B core antibody positive Other and unspecified nonspecific immunological findings Hyponatremia Hyposmolality and/or hyponatremia Acute diastolic CHF (congestive heart failure) (HCC) Acute diastolic heart failure Liver function test abnormality Other abnormal blood chemistry Type 2 diabetes mellitus with diabetic nephropathy, with long-term current use of insulin (HCC) [facility] Diagnosis Liver function test abnormality- Primary Other abnormal blood chemistry Acute diastolic CHF (congestive heart failure) (HCC) Acute diastolic heart failure [facility] Diagnosis Elevated liver enzymes- Primary Other nonspecific abnormal serum enzyme levels Hepatitis B core antibody positive Other and unspecified nonspecific immunological findings [facility] Diagnosis Liver function test abnormality- Primary Other abnormal blood chemistry Hyponatremia Hyposmolality and/or hyponatremia documented [facility]* Diagnosis Elevated liver enzymes Other nonspecific abnormal serum enzyme levels [facility] Diagnosis Encounter for screening mammogram for breast cancer [facility] Diagnosis Leg pain, bilateral Pain in limb [facility] Diagnosis Leg pain, bilateral Pain in limb [facility] Author Amy Moreno [facility] August 14, 2023 10:20pm Note Date/Time August 14, 2023 1 0:20pm [facility] Medical Records Department [address] [place] [id number] H&P Exam - Hospitalist 08/14/238 MR#: [id number] Acct: [id number] Name: BRENDA LE Rep #:[id number] : 1965 57 From: Amy Moreno MD PCP: Dr. Aleksandar Jones MD Status:REG E R Location: ED HPI - General General Date of Admission: 08/14/23 Date of Service: 08/14/23 Chief Complaint: Dyspnea, cough not markedly productive, congestion, fever, chills, wheezing. HPI Narrative The patient is a 57 y/o F w/ PMHx: GERD, RLS, Chronic transaminitis/elevated alkphos, LIDA on CPAP, HTN, HLD, Anxiety and Depression/Schizophrenia unclear type, COPD w/ prior Chronic Hypoxic Respiratory Failure (3L NC) reported in her chart but currently upon presentation not using supplementation, Diabetes mellitus type II, Former Heavy Tobacco use, Obesity who presents to the [facility] ED on 08/14/23with history of 3 to 4 days of upper respiratory type symptoms including nasal congestion, rhinorrhea in addition to fever, chills, body aches as well as not markedly productive cough with wheezing not improving with worsening dyspnea sensation prompting eventual long term transition to the ED for evaluation. Patient notes Tmax at her long term 102. She is unsure if there have been other sick contacts at the long term. Work-up in the ED included 97.4, heart rate 117, BP 140/85, respiratory rate 29, 95% on room air with most recent vitalsigns heart rate 112, BP 117/69, respiratory rate 26, 94% on room air however patient was ambulated and did desaturate to 8788% with exertion but improved again with rest, CBC with WC 13.2, hemoglobin 14, platelet 182 with left shift, CMP with glucose 153, AST/ALT 50/72, alk phos 150, troponin less than 3, BNP 2.9otherwise hepatic profile not marked appearing, chest x-ray with mild interstitial edema versus infiltrate, rapid SARS COVID and influenza antigens negative, EKG with sinus tachycardia with no acute evidence of ischemia. In theED patient ministered normal saline bolus, albuterol and DuoNeb therapy, Solu-Medrol 125 mg IV x1 as well as Afrin nasal spray as patient complaining of significant nasal congestion. [facility] Medical History (Updated 08/14/23 @ 22:[address] Amy Moreno MD) Anxiety and depression COPD (chronic obstructive pulmonary disease) GERD (gastroesophageal reflux disease) HTN (hypertension) Hyperlipidemia Obesity LIDA on CPAP Restless leg syndrome Schizophrenia Type 2 diabetes mellitus Home Medications cholecalciferol (vitamin D3) 25 mcg (1,000 unit) capsule (Vitamin D3) 1,000 unitPO DAILY SUPPLEMENT 10/17/17 [History Last Taken 07/30/21] aspirin 325 mg tablet,delayed release 325 mg PO DAILY@1600 heart health 07/22/18[History Last Taken 07/30/21] lubiprostone 24 mcg capsule (Amitiza) 24 mcg PO BID@0800,1600 bowels 07/22/18 [History Last Taken 07/30/21] omeprazole 20 mg capsule,delayed release 20 mg PO DAILY indigestion 10/31/19 [History Last Taken 07/30/21] potassium chloride 20 mEq tablet,extended release(part/cryst) 20 meq PO DAILY supplement 11/16/19 [History Last Taken 07/30/21] risperidone 1 mg tablet 2 mg PO QHS mood 11/16/19 [History Last Taken 07/29/21] clozapine 100 mg tablet 25 mg PO DAILY@0800 SCHIZOPHRENIA 07/30/21 [History Last Taken 07/30/21] clozapine 100 mg tablet 500 mg PO QHS SCHIZOPHRENIA 07/30/21 [History Last Taken 07/29/21] empagliflozin 10 mg tablet (Jardiance) 10 mg PO DAILY 07/30/21 [History Last Taken 07/30/21] furosemide 20 mg tablet 20 mg PO DAILY FLUID 07/30/21 [History Last Taken 07/30/21] insulin glargine 100 unit/mL (3 mL) subcutaneous pen (Lantus Solostar U-100 Insulin) 40 unit subcut DAILY@1600 DM 07/30/21 [History Last Taken 07/30/21] metoprolol succinate 25 mg tablet,extended release 24 hr 25 mg PO QHS 07/30/21 [History Last Taken 07/29/21] psyllium 1 packet PO QHS SUPPLEMENT 07/30/21 [History Last Taken 07/29/21] clonazepam 0.5 mg tablet 0.5 mg PO TID 06/05/22 [History Last Taken Unknown] ferrous sulfate 325 mg (65 mg iron) tablet (Feosol) 325 mg PO BID 06/05/22 [History Last Taken Unknown] glipizide 5 mg tablet 5 mg PO DAILY 06/05/22 [History Last Taken Unknown] metformin 500 mg tablet 500 mg PO BID 06/05/22 [History Last Taken Unknown] pramipexole 0.5 mg tablet 0.5 mg PO QHS 06/05/22 [History Last Taken Unknown] pravastatin 20 mg tablet 20 mg PO DAILY 06/05/22 [History Last Taken Unknown] Allergy/AdvReac Type Severity Reaction Status Date / Time No Known Allergies Allergy Verified 08/14/23 17:01 Family History (Updated 08/14/23 @ 21:[address] Amy Moreno MD) Mother Heart disease Hypertension Father COPD (chronic obstructive pulmonary disease) Cancer Surgical History (Updated 08/14/23 @ 21:[address] Amy Moreno MD) History of cholecystectomy History of mandibular surgery Social History (Updated 08/14/23 @ 21:[address] Amy Moreno MD) housing: other details: care home. Smoking Status: Former smoker how long ago did patient quit smoking: Quit 10 years prior to 08/14/23 presentation, 2 ppd since teen until quit. alcohol intake: never substance use type: does not use ROS ROS Narrative Admission Review of Systems: CONSTITUTIONAL: No weight loss, + fever, chills, weakness or fatigue. HEENT: + Nasal congestion, rhinorrhea. Eyes: No visual loss, blurred vision, double vision or yellow sclerae. Ears, Nose, Throat: No hearing loss, sneezing. SKIN: No rash or itching, lesions, wounds. CARDIOVASCULAR: No chest pain, chest pressure or chest discomfort, palpitations,edema, orthopnea, syncopal events. RESPIRATORY: + shortness of breath, cough without marked sputum, wheezing. No hemoptysis. GASTROINTESTINAL: + anorexia. No nausea, vomiting or diarrhea, abdominal pain, melena, BRBPR. GENITOURINARY: No dysuria, frequency, urgency or retention. NEUROLOGICAL: No headache, dizziness, syncope, paralysis, ataxia, numbness or tingling in the extremities, focal weakness, change in bowel or bladder control,seizure. MUSCULOSKELETAL: + muscle, back pain, joint pain or stiffness. HEMATOLOGIC: + anemia. No bleeding or bruising. LYMPHATICS: No enlarged nodes. No history of splenectomy. PSYCHIATRIC: + history of depression and anxiety/schizophrenia. ENDOCRINOLOGIC: + reports of sweating, cold or heat intolerance. No polyuria or polydipsia. ALLERGIES: + rhinitis. Vital Signs Vital Signs Vital Signs: 08/14/23 17:02 08/14/23 17:06 08/14/23 17:30 Temperature 97.4 F L 97.4 F L Temperature Source Temporal Temporal Pulse Rate 117 H 116 H Respiratory Rate 29 H 28 H Respiratory Effort Normal Respiratory Depth Normal Respiratory Pattern Normal Blood Pressure 140/85 H 137/79 H Blood Pressure Mean 103 98 Pulse Ox 95 94 Oxygen Delivery Method Room Air Room Air Room Air 08/14/23 18:11 08/14/23 18:29 08/14/23 19:24 Temperature Temperature Source Pulse Rate 114 H 112 H Respiratory Rate 18 26 H Respiratory Effort Respiratory Depth Respiratory Pattern Blood Pressure 117/69 Blood Pressure Mean 85 Pulse Ox 94 Oxygen Delivery Method Room Air Room Air Weight Weight: 177 lb 11.081 oz Body Mass Index (BMI) 33.5 Physical Exam Narrative Physical Examination: General: Awake, alert, oriented to self, place and recent events, remains cooperative, laying flat on her side in the ED bed, fatigued and ill-appearing, no evidence of respiratory distress. Skin: Normal color, normal turgor, no icterus, no cyanosis. HEENT: AT/NC, EOMI, PERRLA, mildly dry MM, no carotid bruits or JVD noted; however, thickened neck makes evaluation difficult. Lungs: Diminished, greater bases, occasional end expiratory wheeze, coughing elicited with deep inspiratory effort, no obvious rales or rhonchi. Heart: Mildly tachycardic with regular rhythm; no gallop, rub audible. Abdomen: Soft, obese, NTTP, mildly hyperactive BS, no obvious distention or HSM appreciated however difficult given habitus. Extremities: No cyanosis, no clubbing, mild peripheral ankle not markedly pitting edema. Neurological: Patient awake, alert, oriented as noted, cognitive function suspect baseline intact; pupils equally reactive to light and accommodation, cranial nerves grossly normal, moving all 4 extremities, no focal deficits, strength moderately to severely global decrease secondary to acute complaints. Psychiatric: Affect appears flat, fatigued, ill-appearing, no acute evidence of depressive or anxiety feelings but does have notable underlying history. Results Lab / Micro Data 08/14/23 18:20 08/14/23 18:20 Labs: Laboratory Results - last 24 hr 08/14/23 18:20: WBC 13.2 H, RBC 4.85, Hgb 14.0, Hct 44.0, MCV 90.7, MCH 28.9, MCHC 31.8 L, RDW Std Deviation 44.6 H, RDW Coeff of Tyesha 13.4, Plt Count 182, MPV10.7, Immature Gran % (Auto) 0.400, Neut % (Auto) 79.4 H, Lymph % (Auto) 12.3 L,[place] % (Auto) 7.5, Eos % (Auto) 0.0, Baso % (Auto) 0.4, Absolute Neuts (auto) 10.5 H, Absolute Lymphs (auto) 1.62, Nucleated RBC % 0, Sodium 137, Potassium 3.8, Chloride 102, Carbon Dioxide 26.0, Anion Gap 9, BUN 15, Creatinine 0.68, Estim Creat Clear Calc 67.22, Est GFR (MDRD) Af Amer 114, Est GFR (MDRD) Non-Af 94, BUN/Creatinine Ratio 22.2 H, Glucose 153 H, Calcium 9.2, Total Bilirubin 0.70, AST 50 H, ALT 72 H, Alkaline Phosphatase 150 H, Troponin I High Sens < 3 L, B-Natriuretic Peptide 2.9, Total Protein 8.0, Albumin 3.8, Globulin 4.2, Albumin/Globulin Ratio 0.9 Micro: Microbiology 08/14/23 18:20 Nasal Secretion SARS-CoV-2 & FLU Antigen (Rapid) - Final Radiology Impression Chest X-Ray 08/14/23 18:11 IMPRESSION: Mild interstitial edema or infiltrates. Electronically Signed: Luis Camilo MD at 19:05 EDT , Assessment & Plan Assessment/Plan (1) COPD exacerbation: PLAN: Plan The patient is a 57 y/o F w/ PMHx: GERD, RLS, Chronic transaminitis/elevated alkphos, LIDA on CPAP, HTN, HLD, Anxiety and Depression/Schizophrenia unclear type, COPD w/ prior Chronic Hypoxic Respiratory Failure (3L NC) reported in her chart but currently upon presentation not using supplementation, Diabetes mellitus type II, Former Heavy Tobacco use, Obesity who presents to the [facility] ED on 08/14/23with history of 3 to 4 days of upper respiratory type symptoms including nasal congestion, rhinorrhea in addition to fever, chills, body aches as well as not markedly productive cough with wheezing not improving with worsening dyspnea sensation prompting eventual long term transition to the ED for evaluation. #1. Acute on Chronic COPD exacerbation w/ associated hypoxia, previous chart reported history of chronic hypoxic respiratory failure documented as using 3 L nasal cannula however this is remotely with visits in between noted to be on room air: CXR w/ mild interstitial edema or infiltrates however patient BNP not marked appearing, afebrile although does have white count and a left shift, willadmit to medical surgical floor given stable vital signs, continue oxygen supplementation with wean as able, maintain on ATC DuoNeb therapy, as needed albuterol, IV Solu-Medrol, head of bed, I-S parameters, will obtain sputum culture, full respiratory viral panel, procalcitonin and will hold off on immediate antibiotic therapy as certainly chest x-ray could be with a viral illness as well, if there is any indication of a bacterial etiology low threshold to add antibiotics. We will repeat chest x-ray in a.m. to assure not worsening. #2. Chronic mild transaminitis, elevated alk phos: Admission CMP with AST/LT 50/72, alk phos 150, patient with similar levels previously, appears chronic, unclear specific etiology, encourage continued outpatient follow-up and assessment. #3. Anxiety and depression/schizophrenia unclear type: We will continue patienthome psychiatric regimen including risperidone, clonazepam and clonazepam with recommended continued outpatient assessments and follow-up as previously arranged. #4. Diabetes mellitus type II: Hold oral home regimen, continue home insulin regimen, ADA diet, accu checks w/ ISS. #5. Hypertension: Continue home regimen including metoprolol, Lasix, PRN hydralazine. #6. Hyperlipidemia: We will continue patient on statin therapy. #7. Restless leg syndrome: We will continue patient home pramipexole regimen. #8. Obesity: Weight loss and lifestyle changes encouraged. #9. GERD: We will continue patient on PPI. #10. LIDA: CPAP nightly. #11. Former tobacco use: Encourage continued tobacco cessation. #12. DVT prophylaxis: Lovenox. #13. CODE STATUS: Full code. Charges/Coding Visit Charges Inpatient E&M: 82032 Init Hosp L3 08/14/232219 <Electronically signed by Amy Moreno MD> Cosigner Signature (if applicable): CC: Dr. Amy Moreno MD; Dr. Aleksandar Jones MD~ Signed [facility] Work Phone: Hospital Discharge instructions Additional Instructions You tested positive for COVID-19 here in the emergency department. Start the steroid that was sent to your pharmacy tomorrow as you were given a dose here today already. Use Zofran as needed for nausea. Ensure adequate hydration. Return with worsening symptoms or any concerns. Follow-up with your doctor in outpatient setting.[facility] Work Phone: Reason for referral (narrative)* Diagnostic Procedure Only (Routine) - Pending Review Specialty Diagnoses / Procedures Referred By Jenny t Referred To Contact [facility] Diagnoses Encounter for screening mammogram for breast cancer Procedures FRANNY SCREENING SCREENING MAMMOGRAPHY BI 2-VIEW BREAST INC CAD Aleksandar Jones MD [address] [place] [address] [facility] [address] [place] [address] Referral ID Status Reason Start Date Expiration Date Visits Requested Visits Authorized [id number] Pending Review Auto-Generat ed Referral 2 09/06/2023 1 1 [facility] for referral (narrative)* Diagnostic Procedure Only (Routine) - Pending Review Specialty Diagnoses / Procedures Referred By Jenny t Referred To Contact [facility]CULAR [facility] FUN[facility]AL IMAGING Diagnoses Chest pain, unspecified type Procedures NM CARDIAC PERF STRESS/PHARM MYOCARDIAL SPECT MULTIPLE STUDIES Radha Batista, ADIEL.TANNING SALON ATTENDANT [address] [place] [address] [facility] [address] [place] [address] Referral ID Status Reason Start Date Expiration Date Visits Requested Visits Authorized [id number] Pending Review Auto-Generat ed Referral 04/29/2023 05/28/2024 1 1 * Outpatient Procedure (Routine) - Closed Specialty Diagnoses / Procedures Referred By Jenny t Referred To Contact [facility] Diagnoses Chest pain, unspecified type Procedures ECG COMPLETE ECG ROUTINE ECG W/LEAST 12 LDS W/I&R Radha Batista, ADIEL.TANNING SALON ATTENDANT [address] [place] [address] [facility] [place] [address] [place] [address] Referral ID Status Reason Start Date Expiration Date V isits Requested Visits Authorized [id number] Closed Auto-Generate d Referral 04/29/2023 04/28/2024 1 1 [facility] for referral (narrative)* Diagnostic Procedure Only (Routine) - Pending Review Specialty Diagnoses / Procedures Referred By Contac t Referred To Contact [facility] Diagnoses Encounter for screening mammogram for breast cancer Procedures FRANNY SCREENING SCREENING MAMMOGRAPHY BI 2-VIEW BREAST INC Aleksandar Torres MD [address] [place] [address] [facility] [address] [address] Referral ID Status Reason Start Date Expiration Date Visits Requested Visits Authorized [id number] Pending Review Auto-Generat ed Referral 07/16/2023 08/14/2024 1 1 [facility] for referral (narrative)* Diagnostic Procedure Only (Routine) - New Request Specialty Diagnoses / Procedures Referred By Jenny t Referred To Contact [facility] Diagnoses Encounter for screening mammogram for breast cancer Procedures FRANNY SCREENING W AUGUSTO SCREENING DIGITAL BREAST TOMOSYNTHESIS BI SCREENING MAMMOGRAPHY BI 2-VIEW BREAST INC Aleksandar Torres MD [address] [place] [address] [facility] [address] [place] [address] Referral ID Status Reason Start Date Expiration Date Visits Requested Visits Authorized [id number] New Request Auto-Generat ed Referral 06/23/2024 07/23/2025 1 1 T [facility] for referral (narrative)* Outpatient Procedure (Routine) - New Request Specialty Diagnoses / Procedures Referred By Rafaelaac t Referred To Contact [facility] Diagnoses Primary hypertension Pure hypercholesterolemia SVT (supraventricular tachycardia) (HCC) Tachycardia Procedures ECG COMPLETE ECG ROUTINE ECG W/LEAST 12 LDS W/I&R Fuentes Renee MD [address], [address] [place] [address] [facility] [address] [place] [address] Referral ID Status Reason Start Date Expiration Date Visits Requested Visits Authorized [id number] New Request Auto-Generat ed Referral 09/20/2024 09/20/2025 1 1 [facility] for referral (narrative)* Outpatient Procedure (Routine) - Authorized Specialty Diagnoses / Procedures Referred By Contac t Referred To Contact [facility] Diagnoses Weakness of both lower extremities Procedures PVR ANK PRESS ASHELY VAS LAB NON-INVAS PHYSIOLOGIC STD EXTREMITY ART 2 LEVEL Radha Batista APRN.TANNING SALON ATTENDANT [address] [place] [address] [facility] [place] [address] [place] [address] Referral ID Status Reason Start Date Expiration Date Visits Requested Visits Authorized [id number] Authorized Auto-Generat ed Referral 11/02/2024 11/02/2025 1 1 * Diagnostic Procedure Only (Routine) - Closed Specialty Diagnoses / Procedures Referred By Contac t Referred To Contact [facility] IMAGING Diagnoses Weakness of both lower extremities Procedures XR LUMBAR GENERAL 3V AP/LAT/L5-S1 RADEX SPINE LUMBOSACRAL 2/3 VIEWS Radha Batista APRN.TANNING SALON ATTENDANT [address] [place] [address] [place] [address] Referral ID Status Reason Start Date Expiration Date V isits Requested Visits Authorized [id number] Closed Auto-Generate d Referral 11/02/2024 12/02/2025 1 1 [facility] for referral (narrative)* Diagnostic Procedure Only (Routine) - Closed Specialty Diagnoses / Procedures Referred By Contac t Referred To Contact [facility] Diagnoses Weakness of both lower extremities Procedures XR LUMBAR GENERAL 3V AP/LAT/L5-S1 RADEX SPINE LUMBOSACRAL 2/3 VIEWS Radha Batista APRN.TANNING SALON ATTENDANT [address] [place] [address] [place] [address] Referral ID Status Reason Start Date Expiration Date V isits Requested Visits Authorized [id number] Closed Auto-Generate d Referral 11/02/2024 12/02/2025 1 1 [facility] for referral (narrative)No reason for referral information availableWAultman [facility] Work Phone: Reason for visit Narrative* Diagnostic Procedure Only (Routine) - Closed Specialty Diagnoses / Procedures Referred By Jenny t Referred To Contact [facility] Diagnoses Chest pain, unspecified type Procedures NM CARDIAC PERF STRESS/PHARM MYOCARDIAL SPECT MULTIPLE STUDIES Radha Batista APRN.TANNING SALON ATTENDANT [address] [place] [address] [facility] [address] [place] [address] Referral ID Status Reason Start Date Expiration Date V isits Requested Visits Authorized [id number] Closed Auto-Generate d Referral 05/15/2023 10/12/2023 3 1 [facility] for visit Narrative* Diagnostic Procedure Only (Routine) - Closed Specialty Diagnoses / Procedures Referred By Jenny t Referred To Contact XR IMAGING Diagnoses Weakness of both lower extremities Procedures XR LUMBAR GENERAL 3V AP/LAT/L5-S1 RADEX SPINE LUMBOSACRAL 2/3 VIEWS Radha Batista APRN.TANNING SALON ATTENDANT [address] [place] [address] [place] [address] Referral ID Status Reason Start Date Expiration Date V isits Requested Visits Authorized [id number] Closed Auto-Generate d Referral 11/02/2024 12/02/2025 1 1 [facility] for visit Narrative* Diagnostic Procedure Only (Routine) - Closed Specialty Diagnoses / Procedures Referred By Jenny t Referred To Contact [facility] Diagnoses Encounter for screening mammogram for breast cancer Procedures FRANNY SCREENING W AUGUSTO SCREENING DIGITAL BREAST TOMOSYNTHESIS BI SCREENING MAMMOGRAPHY BI 2-VIEW BREAST INC CAD Aleksandar Jones MD [address] [place] [address] Phone: tel: fax: [facility] [address] [place] [address] Referral ID Status Reason Start Date Expiration Date V isits Requested Visits Authorized [id number] Closed Auto-Generate d Referral 06/23/2024 07/23/2025 1 1 [facility] Summary Purpose Family History Relationship Condition Age at Onset Recorded Date/T tiffanie Unknown Family History?Cancer, COPD, - Unknown November 06, 2019 10:27pm Family History?Heart Disease, - Unknown November 06, 2019 10:27pm Family History?No pe rtinent history Unknown March 02, 2014 1:55pm Family History?No pe rtinent history Unknown September 12, 2014 8:38pm Relationship Condition Age at Onset Recorded Date/T tiffanie Unknown Family History?Cancer, COPD, - Unknown November 06, 2019 9:27pm Family History?Heart Disease, - Unknown November 06, 2019 9:27pm Family History?No pe rtinent history Unknown March 02, 2014 12:55pm Family History?No pe rtinent history Unknown September 12, 2014 7:38pm Relationship Condition Age at Onset Recorded Date/T tiffanie mother Cardiac disease Unknown Hypertension Unknown father Chronic obstructive pulmonary disease Unk nown Malignant neoplasm Unknown Advance Directives Advance Directive Response Recorded Date/ Time Advance Directives No July 26, 2015 12:08pm Living Will No July 30 4:52pm Power of Farmworker Poultry No July 30, 2021 4:52pm Documents on File Type Date 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 Advance Directive(s) 12/04/2016 3:21 PM Advance Directive(s) 01/11/2009 10:19 PM Advance Directive(s) 12/06/2008 4:00 PM Advance Directive Response Recorded Date/ Time Advance Directives No July 26, 2015 12:08pm Living Will No April 09, 2022 3:50pm Power of Farmworker Poultry No April 09 3:50pm Advance Directive Response Recorded Date/ Time Advance Directives No July 26, 2015 12:08pm Living Will No June 05 3:59pm Power of Farmworker Poultry No June 05 3:59pm Documents on File Type Date Recorded 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 Advance Directive(s) 01/11/2009 10:19 PM Advance Directive(s) 12/06/2008 4:00 PM Documents on File Type Date Recorded 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 Advance Directive(s) 01/11/2009 10:19 PM Advance Directive(s) 12/06/2008 4:00 PM Advance Directive Response Recorded Date/ Time Advance Directives No July 26, 2015 11:08am Living Will No June 05 2:59pm Power of Farmworker Poultry No June 05 022 2:59pm Advance Directive Response Recorded Date/ Time Advance Directives No July 26, 2015 12:08pm Living Will No August 14 5:05pm Power of Farmworker Poultry No August 14, 2023 5:05pm Advance Directive Response Recorded Date/ Time Name of Medical Power of Farmworker Poultry Melony Shell August 15, 2023 12:13am Advance Directives No July 26, 2015 12:08pm Living Will No August 15 12:13am Power of Farmworker Poultry Yes August 15, 2023 12:13am Advance Directive Response Recorded Date/ Time Name of Medical Power of Farmworker Poultry Melony Shell August 14, 2023 11:13pm Advance Directives No July 26, 2015 11:08am Living Will No August 14 11:13pm Power of Farmworker Poultry Yes August 14, 2023 11:13pm Advance Directive Response Recorded Date/ Time Name of Medical Power of Farmworker Poultry Melony Shell August 14, 2023 11:13pm Advance Directives No July 26, 2015 11:08am Living Will No December 13, 2023 6:19pm Power of Farmworker Poultry No December 12 6:19pm Advance Directive Response Recorded Date/ Time Advance Directives No July 26, 2015 12:08pm Living Will No December 13, 2023 7:19pm Power of Farmworker Poultry No December 12 7:19pm Advance Directive Response Recorded Date/ Time Living Will No September 12 12:34am Power of Farmworker Poultry No September 12, 2024 12:34am Living Will No October 13 5:23am Power of Farmworker Poultry No October 13 025 5:23am Living Will No October 14 4:06pm Power of Farmworker Poultry No Kassy 2nd, 2 025 4:06pm Living Will No December 13, 2023 7:19pm Power of Farmworker Poultry No December 12 7:19pm Living Will No November 10 1:40am Power of Farmworker Poultry No November 10, 2024 1:40am Living Will No November 13 2:33am Power of Farmworker Poultry No November 13, 2024 2:33am Living Will No December 21, 2024 8:47am Power of Farmworker Poultry No December 21 8:47am Advance Directives No July 26, 2015 12:08pm Advance Directive Response Recorded Date/ Time Living Will No September 12 12:34am Do you have a Healthcare Power of Farmworker Poultry? No September 12, 2024 12:34am Living Will No October 13 5:23am Do you have a Healthcare Power of Farmworker Poultry? No October 13, 2024 5:23am Living Will No October 14 4:06pm Do you have a Healthcare Power of Farmworker Poultry? No October 14, 2024 4:06pm Living Will No December 11, 2024 5:48am Do you have a Healthcare Power of Farmworker Poultry? No December 11, 2024 5:48am Living Will No November 10 1:40am Do you have a Healthcare Power of Farmworker Poultry? No November 10, 2024 1:40am Living Will No November 13 2:33am Do you have a Healthcare Power of Farmworker Poultry? No November 13, 2024 2:33am Living Will No December 21, 2024 8:47am Do you have a Healthcare Power of Farmworker Poultry? No December 21, 2024 8:47am Advance Directives No July 26, 2015 12:08pm Chief Complaint and Reason for Visit Chief Complaint S/O S/O S/O S/O Chief Complaint S/O S/O S/O S/O MENTAL HEALTH Chief Complaint S/O S/O S/O MENTAL HEALTH S/O Personal history of nicotine dependence Chief Complaint S/O S/O MENTAL HEALTH S/O Personal history of nicotine dependence S/O MENTAL HEALTH Chief Complaint S/O MENTAL HEALTH S/O Personal history of nicotine dependence S/O MENTAL HEALTH S/O Chief Complaint S/O MENTAL HEALTH S/O S/O S/O Chief Complaint S/O S/O S/O NICOTINE DEPENDENCE Chief Complaint S/O S/O S/O NICOTINE DEPENDENCE S/O Chief Complaint S/O S/O NICOTINE DEPENDENCE S/O S/O Chief Complaint S/O NICOTINE DEPENDENCE S/O S/O S/O Chief Complaint NICOTINE DEPENDENCE S/O S/O S/O S/O COPD EXACERBATION, HYPOXIA COPD EXACERBATION, HYPOXIA Reason for Visit COPD exacerbation Chief Complaint NICOTINE DEPENDENCE S/O S/O S/O S/O COPD EXACERBATION, HYPOXIA COPD EXACERBATION, HYPOXIA COPD EXACERBATION, HYPOXIA COPD EXACERBATION, HYPOXIA Reason for Visit COPD exacerbation Chief Complaint S/O S/O S/O COPD EXACERBATION, HYPOXIA COPD EXACERBATION, HYPOXIA COPD EXACERBATION, HYPOXIA COPD EXACERBATION, HYPOXIA S/O Reason for Visit COPD exacerbation Chief Complaint S/O COPD EXACERBATION, HYPOXIA COPD EXACERBATION, HYPOXIA COPD EXACERBATION, HYPOXIA COPD EXACERBATION, HYPOXIA S/O S/O S/O Reason for Visit COPD exacerbation Chief Complaint COPD EXACERBATION, H YPOXIA COPD EXACERBATION, HYPOXIA COPD EXACERBATION, HYPOXIA COPD EXACERBATION, HYPOXIA S/O S/O S/O S/O Reason for Visit COPD exacerbation Chief Complaint COPD EXACERBATION, H YPOXIA COPD EXACERBATION, HYPOXIA S/O S/O S/O S/O abdominal pain Reason for Visit COPD exacerbation Chief Complaint S/O S/O S/O abdominal pain S/O Chief Complaint S/O S/O abdominal pain S/O S/O Chief Complaint Admit Date S/O August 25, 2024 2:31pm S/O September 16, 2024 3 :21pm S/O October 14, 2024 8: 47am N/V/D October 14, 2024 3: 02pm BIBASILAR PNEUMONIA, AE COPD, RESP INSUF F & November 09, 2024 11:49pm BIBASILAR PNEUMONIA, AE COPD, RESP INSUF F & November 10, 2024 6:23pm BIBASILAR PNEUMONIA, AE COPD, RESP INSUF F & November 11, 2024 6:34pm BIBASILAR PNEUMONIA, AE COPD, RESP INSUF F & November 12, 2024 10:40am S/O December 08, 2024 1:08pm sob December 21, 2024 8:4 2am Reason for Visit Admit Date Schizophrenia November 09, 2024 1 1:49pm COPD exacerbation November 09, 2024 1 1:49pm Hyponatremia November 09, 2024 1 1:49pm Leukocytosis November 09, 2024 1 1:49pm Obesity (BMI 30-39.9) November 09, 2024 11:49pm Pneumonia November 09, 2024 1 1:49pm Respiratory insufficiency November 09, 2024 11:49pm Chief Complaint Admit Date S/O September 16, 2024 3 :21pm S/O October 14, 2024 8: 47am N/V/D October 14, 2024 3: 02pm BIBASILAR PNEUMONIA, AE COPD, RESP INSUF F & November 09, 2024 11:49pm BIBASILAR PNEUMONIA, AE COPD, RESP INSUF F & November 10, 2024 6:23pm BIBASILAR PNEUMONIA, AE COPD, RESP INSUF F & November 11, 2024 6:34pm BIBASILAR PNEUMONIA, AE COPD, RESP INSUF F & November 12, 2024 10:40am S/O December 08, 2024 1:08pm sob December 21, 2024 8:4 2am S/O January 04, 2025 2:5 6pm Reason for Referral Specialty Diagnoses / Procedures Referred By Contac t Referred To Contact Podiatry Diagnoses Injury of toenail of right foot, initial encounter Procedures CONSULT TO PODIATRY OFFICE/OUTPATIENT [facility] MDM 60-74 MINUTES Zaira Mancilla, RUBBER CUTTER AND SHAPE CARVER.TANNING SALON ATTENDANT [address] [place] [address] Referral ID Status Reason Start Date Expiration Date Visits Requested Visits Authorized [id number] Authorized PCP Requested Referral 07/05/2022 07/05/2023 1 1 Specialty Diagnoses / Procedures Referred By Contac t Referred To Contact [facility] Diagnoses Leg weakness, bilateral Procedures CONSULT TO PHYSICAL THERAPY PHYSICAL THERAPY EVALUATION HIGH COMPLEX 45 MINS Radha Batista, RUBBER CUTTER AND SHAPE CARVER.TANNING SALON ATTENDANT [address] [place] [address] [facility] [place] [address] [place] [address] Referral ID Status Reason Start Date Expiration Date Visits Requested Visits Authorized [id number] Pending Review PCP Requested Referral Auto-Generate d Referral 01/13/2024 01/12/2025 99 99 Additional Source Comments INFORMATION SOURCE (unrecogn ized section and content) DATE CREATED AUTHOR 04/03/2018 [facility] DATE CREATED AUTHOR AUTHOR'S ORGANIZ ATION 07/21/2021 [facility] DATE CREATED AUTHOR AUTHOR'S ORGANIZ ATION 03/17/2025 [facility] DATE CREATED AUTHOR AUTHOR'S ORGANIZ ATION 03/17/2025 [facility] Goals (unrecognized section and content) Goals may be documented in a n alternate sectionGoals may be documented in an alternate sectionGoals may be documented in an alternate sectionGoals may be documented in an alternate sectionGoals may be documented in an alternate sectionGoals may be documented in an alternate sectionGoals may be documented in an alternate sectionGoals may be documented in an alternate sectionGoals may be documented in an alternate sectionGoals may be documented in an alternate sectionGoals may be documented in an alternate sectionGoals may be documented in an alternate sectionGoals may be documented in an alternate sectionGoals may be documented in an alternate sectionGoals may be documented in an alternate sectionGoals may be documented in an alternate sectionGoals may be documented in an alternate sectionGoals may be documented in an alternate sectionGoals may be documented in an alternate sectionGoals may be documented in an alternate sectionGoals may be documented in an alternate sectionGoals may be documented in an alternate sectionGoals may be documented in an alternate sectionGoals may be documented in an alternate section Source Comments (unrecognize d section and content) In the event this informatio n is protected by the Federal Confidentiality of Alcohol and Drug Abuse Patient Records regulations: The Federal rules restrict any use of the information to criminally investigate or prosecute any alcohol or drug abuse patient.[facility] the event this information is protected by the Federal Confidentiality of Alcohol and Drug Abuse Patient Records regulations: The Federal rules restrict any use of the information to criminally investigate or prosecute any alcohol or drug abuse patient.[facility] the event this information is protected by the Federal Confidentiality of Alcohol and Drug Abuse Patient Records regulations: The Federal rules restrict any use of the information to criminally investigate or prosecute any alcohol or drug abuse patient.[facility] the event this information is protected by the Federal Confidentiality of Alcohol and Drug Abuse Patient Records regulations: The Federal rules restrict any use of the information to criminally investigate or prosecute any alcohol or drug abuse patient.[facility] the event this information is protected by the Federal Confidentiality of Alcohol and Drug Abuse Patient Records regulations: The Federal rules restrict any use of the information to criminally investigate or prosecute any alcohol or drug abuse patient.[facility] the event this information is protected by the Federal Confidentiality of Alcohol and Drug Abuse Patient Records regulations: The Federal rules restrict any use of the information to criminally investigate or prosecute any alcohol or drug abuse patient.[facility] the event this information is protected by the Federal Confidentiality of Alcohol and Drug Abuse Patient Records regulations: The Federal rules restrict any use of the information to criminally investigate or prosecute any alcohol or drug abuse patient.[facility] the event this information is protected by the Federal Confidentiality of Alcohol and Drug Abuse Patient Records regulations: The Federal rules restrict any use of the information to criminally investigate or prosecute any alcohol or drug abuse patient.[facility] the event this information is protected by the Federal Confidentiality of Alcohol and Drug Abuse Patient Records regulations: The Federal rules restrict any use of the information to criminally investigate or prosecute any alcohol or drug abuse patient.[facility] the event this information is protected by the Federal Confidentiality of Alcohol and Drug Abuse Patient Records regulations: The Federal rules restrict any use of the information to criminally investigate or prosecute any alcohol or drug abuse patient.[facility] the event this information is protected by the Federal Confidentiality of Alcohol and Drug Abuse Patient Records regulations: The Federal rules restrict any use of the information to criminally investigate or prosecute any alcohol or drug abuse patient.[facility] the event this information is protected by the Federal Confidentiality of Alcohol and Drug Abuse Patient Records regulations: The Federal rules restrict any use of the information to criminally investigate or prosecute any alcohol or drug abuse patient.[facility] the event this information is protected by the Federal Confidentiality of Alcohol and Drug Abuse Patient Records regulations: The Federal rules restrict any use of the information to criminally investigate or prosecute any alcohol or drug abuse patient.[facility] the event this information is protected by the Federal Confidentiality of Alcohol and Drug Abuse Patient Records regulations: The Federal rules restrict any use of the information to criminally investigate or prosecute any alcohol or drug abuse patient.[facility] the event this information is protected by the Federal Confidentiality of Alcohol and Drug Abuse Patient Records regulations: The Federal rules restrict any use of the information to criminally investigate or prosecute any alcohol or drug abuse patient.[facility] the event this information is protected by the Federal Confidentiality of Alcohol and Drug Abuse Patient Records regulations: The Federal rules restrict any use of the information to criminally investigate or prosecute any alcohol or drug abuse patient.[facility] the event this information is protected by the Federal Confidentiality of Alcohol and Drug Abuse Patient Records regulations: The Federal rules restrict any use of the information to criminally investigate or prosecute any alcohol or drug abuse patient.[facility]In the event this information is protected by the Federal Confidentiality of Alcohol and Drug Abuse Patient Records regulations: The Federal rules restrict any use of the information to criminally investigate or prosecute any alcohol or drug abuse patient.[facility]In the event this information is protected by the Federal Confidentiality of Alcohol and Drug Abuse Patient Records regulations: The Federal rules restrict any use of the information to criminally investigate or prosecute any alcohol or drug abuse patient.[facility]In the event this information is protected by the Federal Confidentiality of Alcohol and Drug Abuse Patient Records regulations: The Federal rules restrict any use of the information to criminally investigate or prosecute any alcohol or drug abuse patient.[facility]In the event this information is protected by the Federal Confidentiality of Alcohol and Drug Abuse Patient Records regulations: The Federal rules restrict any use of the information to criminally investigate or prosecute any alcohol or drug abuse patient.[facility]In the event this information is protected by the Federal Confidentiality of Alcohol and Drug Abuse Patient Records regulations: The Federal rules restrict any use of the information to criminally investigate or prosecute any alcohol or drug abuse patient.[facility]In the event this information is protected by the Federal Confidentiality of Alcohol and Drug Abuse Patient Records regulations: The Federal rules restrict any use of the information to criminally investigate or prosecute any alcohol or drug abuse patient.[facility]In the event this information is protected by the Federal Confidentiality of Alcohol and Drug Abuse Patient Records regulations: The Federal rules restrict any use of the information to criminally investigate or prosecute any alcohol or drug abuse patient.[facility]In the event this information is protected by the Federal Confidentiality of Alcohol and Drug Abuse Patient Records regulations: The Federal rules restrict any use of the information to criminally investigate or prosecute any alcohol or drug abuse patient.[facility]In the event this information is protected by the Federal Confidentiality of Alcohol and Drug Abuse Patient Records regulations: The Federal rules restrict any use of the information to criminally investigate or prosecute any alcohol or drug abuse patient.[facility]In the event this information is protected by the Federal Confidentiality of Alcohol and Drug Abuse Patient Records regulations: The Federal rules restrict any use of the information to criminally investigate or prosecute any alcohol or drug abuse patient.[facility]In the event this information is protected by the Federal Confidentiality of Alcohol and Drug Abuse Patient Records regulations: The Federal rules restrict any use of the information to criminally investigate or prosecute any alcohol or drug abuse patient.[facility]In the event this information is protected by the Federal Confidentiality of Alcohol and Drug Abuse Patient Records regulations: The Federal rules restrict any use of the information to criminally investigate or prosecute any alcohol or drug abuse patient.[facility]In the event this information is protected by the Federal Confidentiality of Alcohol and Drug Abuse Patient Records regulations: The Federal rules restrict any use of the information to criminally investigate or prosecute any alcohol or drug abuse patient.[facility]In the event this information is protected by the Federal Confidentiality of Alcohol and Drug Abuse Patient Records regulations: The Federal rules restrict any use of the information to criminally investigate or prosecute any alcohol or drug abuse patient.[facility]In the event this information is protected by the Federal Confidentiality of Alcohol and Drug Abuse Patient Records regulations: The Federal rules restrict any use of the information to criminally investigate or prosecute any alcohol or drug abuse patient.[facility]In the event this information is protected by the Federal Confidentiality of Alcohol and Drug Abuse Patient Records regulations: The Federal rules restrict any use of the information to criminally investigate or prosecute any alcohol or drug abuse patient.[facility]In the event this information is protected by the Federal Confidentiality of Alcohol and Drug Abuse Patient Records regulations: The Federal rules restrict any use of the information to criminally investigate or prosecute any alcohol or drug abuse patient.[facility]In the event this information is protected by the Federal Confidentiality of Alcohol and Drug Abuse Patient Records regulations: The Federal rules restrict any use of the information to criminally investigate or prosecute any alcohol or drug abuse patient.[facility]In the event this information is protected by the Federal Confidentiality of Alcohol and Drug Abuse Patient Records regulations: The Federal rules restrict any use of the information to criminally investigate or prosecute any alcohol or drug abuse patient.[facility]In the event this information is protected by the Federal Confidentiality of Alcohol and Drug Abuse Patient Records regulations: The Federal rules restrict any use of the information to criminally investigate or prosecute any alcohol or drug abuse patient.[facility]In the event this information is protected by the Federal Confidentiality of Alcohol and Drug Abuse Patient Records regulations: The Federal rules restrict any use of the information to criminally investigate or prosecute any alcohol or drug abuse patient.[facility]In the event this information is protected by the Federal Confidentiality of Alcohol and Drug Abuse Patient Records regulations: The Federal rules restrict any use of the information to criminally investigate or prosecute any alcohol or drug abuse patient.[facility]In the event this information is protected by the Federal Confidentiality of Alcohol and Drug Abuse Patient Records regulations: The Federal rules restrict any use of the information to criminally investigate or prosecute any alcohol or drug abuse patient.[facility]In the event this information is protected by the Federal Confidentiality of Alcohol and Drug Abuse Patient Records regulations: The Federal rules restrict any use of the information to criminally investigate or prosecute any alcohol or drug abuse patient.[facility]In the event this information is protected by the Federal Confidentiality of Alcohol and Drug Abuse Patient Records regulations: The Federal rules restrict any use of the information to criminally investigate or prosecute any alcohol or drug abuse patient.[facility]In the event this information is protected by the Federal Confidentiality of Alcohol and Drug Abuse Patient Records regulations: The Federal rules restrict any use of the information to criminally investigate or prosecute any alcohol or drug abuse patient.[facility]In the event this information is protected by the Federal Confidentiality of Alcohol and Drug Abuse Patient Records regulations: The Federal rules restrict any use of the information to criminally investigate or prosecute any alcohol or drug abuse patient.[facility]In the event this information is protected by the Federal Confidentiality of Alcohol and Drug Abuse Patient Records regulations: The Federal rules restrict any use of the information to criminally investigate or prosecute any alcohol or drug abuse patient.[facility]In the event this information is protected by the Federal Confidentiality of Alcohol and Drug Abuse Patient Records regulations: The Federal rules restrict any use of the information to criminally investigate or prosecute any alcohol or drug abuse patient.[facility]In the event this information is protected by the Federal Confidentiality of Alcohol and Drug Abuse Patient Records regulations: The Federal rules restrict any use of the information to criminally investigate or prosecute any alcohol or drug abuse patient.[facility]In the event this information is protected by the Federal Confidentiality of Alcohol and Drug Abuse Patient Records regulations: The Federal rules restrict any use of the information to criminally investigate or prosecute any alcohol or drug abuse patient.[facility]In the event this information is protected by the Federal Confidentiality of Alcohol and Drug Abuse Patient Records regulations: The Federal rules restrict any use of the information to criminally investigate or prosecute any alcohol or drug abuse patient.[facility]In the event this information is protected by the Federal Confidentiality of Alcohol and Drug Abuse Patient Records regulations: The Federal rules restrict any use of the information to criminally investigate or prosecute any alcohol or drug abuse patient.[facility]In the event this information is protected by the Federal Confidentiality of Alcohol and Drug Abuse Patient Records regulations: The Federal rules restrict any use of the information to criminally investigate or prosecute any alcohol or drug abuse patient.[facility]In the event this information is protected by the Federal Confidentiality of Alcohol and Drug Abuse Patient Records regulations: The Federal rules restrict any use of the information to criminally investigate or prosecute any alcohol or drug abuse patient.[facility]In the event this information is protected by the Federal Confidentiality of Alcohol and Drug Abuse Patient Records regulations: The Federal rules restrict any use of the information to criminally investigate or prosecute any alcohol or drug abuse patient.[facility]In the event this information is protected by the Federal Confidentiality of Alcohol and Drug Abuse Patient Records regulations: The Federal rules restrict any use of the information to criminally investigate or prosecute any alcohol or drug abuse patient.[facility]In the event this information is protected by the Federal Confidentiality of Alcohol and Drug Abuse Patient Records regulations: The Federal rules restrict any use of the information to criminally investigate or prosecute any alcohol or drug abuse patient.[facility]In the event this information is protected by the Federal Confidentiality of Alcohol and Drug Abuse Patient Records regulations: The Federal rules restrict any use of the information to criminally investigate or prosecute any alcohol or drug abuse patient.[facility]In the event this information is protected by the Federal Confidentiality of Alcohol and Drug Abuse Patient Records regulations: The Federal rules restrict any use of the information to criminally investigate or prosecute any alcohol or drug abuse patient.[facility]In the event this information is protected by the Federal Confidentiality of Alcohol and Drug Abuse Patient Records regulations: The Federal rules restrict any use of the information to criminally investigate or prosecute any alcohol or drug abuse patient.[facility]In the event this information is protected by the Federal Confidentiality of Alcohol and Drug Abuse Patient Records regulations: The Federal rules restrict any use of the information to criminally investigate or prosecute any alcohol or drug abuse patient.[facility]In the event this information is protected by the Federal Confidentiality of Alcohol and Drug Abuse Patient Records regulations: The Federal rules restrict any use of the information to criminally investigate or prosecute any alcohol or drug abuse patient.[facility]In the event this information is protected by the Federal Confidentiality of Alcohol and Drug Abuse Patient Records regulations: The Federal rules restrict any use of the information to criminally investigate or prosecute any alcohol or drug abuse patient.[facility]In the event this information is protected by the Federal Confidentiality of Alcohol and Drug Abuse Patient Records regulations: The Federal rules restrict any use of the information to criminally investigate or prosecute any alcohol or drug abuse patient.[facility] HospitalIn the event this information is protected by the Federal Confidentiality of Alcohol and Drug Abuse Patient Records regulations: The Federal rules restrict any use of the information to criminally investigate or prosecute any alcohol or drug abuse patient.[facility]In the event this information is protected by the Federal Confidentiality of Alcohol and Drug Abuse Patient Records regulations: The Federal rules restrict any use of the information to criminally investigate or prosecute any alcohol or drug abuse patient.[facility]In the event this information is protected by the Federal Confidentiality of Alcohol and Drug Abuse Patient Records regulations: The Federal rules restrict any use of the information to criminally investigate or prosecute any alcohol or drug abuse patient.[facility]In the event this information is protected by the Federal Confidentiality of Alcohol and Drug Abuse Patient Records regulations: The Federal rules restrict any use of the information to criminally investigate or prosecute any alcohol or drug abuse patient.[facility]In the event this information is protected by the Federal Confidentiality of Alcohol and Drug Abuse Patient Records regulations: The Federal rules restrict any use of the information to criminally investigate or prosecute any alcohol or drug abuse patient.[facility]In the event this information is protected by the Federal Confidentiality of Alcohol and Drug Abuse Patient Records regulations: The Federal rules restrict any use of the information to criminally investigate or prosecute any alcohol or drug abuse patient.[facility]In the event this information is protected by the Federal Confidentiality of Alcohol and Drug Abuse Patient Records regulations: The Federal rules restrict any use of the information to criminally investigate or prosecute any alcohol or drug abuse patient.[facility]In the event this information is protected by the Federal Confidentiality of Alcohol and Drug Abuse Patient Records regulations: The Federal rules restrict any use of the information to criminally investigate or prosecute any alcohol or drug abuse patient.[facility]In the event this information is protected by the Federal Confidentiality of Alcohol and Drug Abuse Patient Records regulations: The Federal rules restrict any use of the information to criminally investigate or prosecute any alcohol or drug abuse patient.[facility]In the event this information is protected by the Federal Confidentiality of Alcohol and Drug Abuse Patient Records regulations: The Federal rules restrict any use of the information to criminally investigate or prosecute any alcohol or drug abuse patient.[facility]In the event this information is protected by the Federal Confidentiality of Alcohol and Drug Abuse Patient Records regulations: The Federal rules restrict any use of the information to criminally investigate or prosecute any alcohol or drug abuse patient.[facility]In the event this information is protected by the Federal Confidentiality of Alcohol and Drug Abuse Patient Records regulations: The Federal rules restrict any use of the information to criminally investigate or prosecute any alcohol or drug abuse patient.[facility]In the event this information is protected by the Federal Confidentiality of Alcohol and Drug Abuse Patient Records regulations: The Federal rules restrict any use of the information to criminally investigate or prosecute any alcohol or drug abuse patient.[facility]In the event this information is protected by the Federal Confidentiality of Alcohol and Drug Abuse Patient Records regulations: The Federal rules restrict any use of the information to criminally investigate or prosecute any alcohol or drug abuse patient.[facility]In the event this information is protected by the Federal Confidentiality of Alcohol and Drug Abuse Patient Records regulations: The Federal rules restrict any use of the information to criminally investigate or prosecute any alcohol or drug abuse patient.[facility]In the event this information is protected by the Federal Confidentiality of Alcohol and Drug Abuse Patient Records regulations: The Federal rules restrict any use of the information to criminally investigate or prosecute any alcohol or drug abuse patient.[facility]In the event this information is protected by the Federal Confidentiality of Alcohol and Drug Abuse Patient Records regulations: The Federal rules restrict any use of the information to criminally investigate or prosecute any alcohol or drug abuse patient.[facility]In the event this information is protected by the Federal Confidentiality of Alcohol and Drug Abuse Patient Records regulations: The Federal rules restrict any use of the information to criminally investigate or prosecute any alcohol or drug abuse patient.[facility]In the event this information is protected by the Federal Confidentiality of Alcohol and Drug Abuse Patient Records regulations: The Federal rules restrict any use of the information to criminally investigate or prosecute any alcohol or drug abuse patient.[facility]In the event this information is protected by the Federal Confidentiality of Alcohol and Drug Abuse Patient Records regulations: The Federal rules restrict any use of the information to criminally investigate or prosecute any alcohol or drug abuse patient.[facility]In the event this information is protected by the Federal Confidentiality of Alcohol and Drug Abuse Patient Records regulations: The Federal rules restrict any use of the information to criminally investigate or prosecute any alcohol or drug abuse patient.[facility]In the event this information is protected by the Federal Confidentiality of Alcohol and Drug Abuse Patient Records regulations: The Federal rules restrict any use of the information to criminally investigate or prosecute any alcohol or drug abuse patient.[facility]In the event this information is protected by the Federal Confidentiality of Alcohol and Drug Abuse Patient Records regulations: The Federal rules restrict any use of the information to criminally investigate or prosecute any alcohol or drug abuse patient.[facility]In the event this information is protected by the Federal Confidentiality of Alcohol and Drug Abuse Patient Records regulations: The Federal rules restrict any use of the information to criminally investigate or prosecute any alcohol or drug abuse patient.[facility]In the event this information is protected by the Federal Confidentiality of Alcohol and Drug Abuse Patient Records regulations: The Federal rules restrict any use of the information to criminally investigate or prosecute any alcohol or drug abuse patient.[facility]In the event this information is protected by the Federal Confidentiality of Alcohol and Drug Abuse Patient Records regulations: The Federal rules restrict any use of the information to criminally investigate or prosecute any alcohol or drug abuse patient.[facility]In the event this information is protected by the Federal Confidentiality of Alcohol and Drug Abuse Patient Records regulations: The Federal rules restrict any use of the information to criminally investigate or prosecute any alcohol or drug abuse patient.[facility]In the event this information is protected by the Federal Confidentiality of Alcohol and Drug Abuse Patient Records regulations: The Federal rules restrict any use of the information to criminally investigate or prosecute any alcohol or drug abuse patient.[facility]In the event this information is protected by the Federal Confidentiality of Alcohol and Drug Abuse Patient Records regulations: The Federal rules restrict any use of the information to criminally investigate or prosecute any alcohol or drug abuse patient.[facility]In the event this information is protected by the Federal Confidentiality of Alcohol and Drug Abuse Patient Records regulations: The Federal rules restrict any use of the information to criminally investigate or prosecute any alcohol or drug abuse patient.[facility]In the event this information is protected by the Federal Confidentiality of Alcohol and Drug Abuse Patient Records regulations: The Federal rules restrict any use of the information to criminally investigate or prosecute any alcohol or drug abuse patient.[facility]In the event this information is protected by the Federal Confidentiality of Alcohol and Drug Abuse Patient Records regulations: The Federal rules restrict any use of the information to criminally investigate or prosecute any alcohol or drug abuse patient.[facility]In the event this information is protected by the Federal Confidentiality of Alcohol and Drug Abuse Patient Records regulations: The Federal rules restrict any use of the information to criminally investigate or prosecute any alcohol or drug abuse patient.[facility]In the event this information is protected by the Federal Confidentiality of Alcohol and Drug Abuse Patient Records regulations: The Federal rules restrict any use of the information to criminally investigate or prosecute any alcohol or drug abuse patient.[facility]In the event this information is protected by the Federal Confidentiality of Alcohol and Drug Abuse Patient Records regulations: The Federal rules restrict any use of the information to criminally investigate or prosecute any alcohol or drug abuse patient.[facility]In the event this information is protected by the Federal Confidentiality of Alcohol and Drug Abuse Patient Records regulations: The Federal rules restrict any use of the information to criminally investigate or prosecute any alcohol or drug abuse patient.[facility]In the event this information is protected by the Federal Confidentiality of Alcohol and Drug Abuse Patient Records regulations: The Federal rules restrict any use of the information to criminally investigate or prosecute any alcohol or drug abuse patient.[facility]In the event this information is protected by the Federal Confidentiality of Alcohol and Drug Abuse Patient Records regulations: The Federal rules restrict any use of the information to criminally investigate or prosecute any alcohol or drug abuse patient.[facility] HospitalIn the event this information is protected by the Federal Confidentiality of Alcohol and Drug Abuse Patient Records regulations: The Federal rules restrict any use of the information to criminally investigate or prosecute any alcohol or drug abuse patient.[facility] HospitalIn the event this information is protected by the Federal Confidentiality of Alcohol and Drug Abuse Patient Records regulations: The Federal rules restrict any use of the information to criminally investigate or prosecute any alcohol or drug abuse patient.[facility] [place] [facility] HospitalIn the event this information is protected by the Federal Confidentiality of Alcohol and Drug Abuse Patient Records regulations: The Federal rules restrict any use of the information to criminally investigate or prosecute any alcohol or drug abuse patient.[facility] [place] [facility] HospitalIn the event this information is protected by the Federal Confidentiality of Alcohol and Drug Abuse Patient Records regulations: The Federal rules restrict any use of the information to criminally investigate or prosecute any alcohol or drug abuse patient.[facility] [place] [facility] HospitalIn the event this information is protected by the Federal Confidentiality of Alcohol and Drug Abuse Patient Records regulations: The Federal rules restrict any use of the information to criminally investigate or prosecute any alcohol or drug abuse patient.[facility] [place] [facility] HospitalIn the event this information is protected by the Federal Confidentiality of Alcohol and Drug Abuse Patient Records regulations: The Federal rules restrict any use of the information to criminally investigate or prosecute any alcohol or drug abuse patient.[facility] [place] [facility] HospitalIn the event this information is protected by the Federal Confidentiality of Alcohol and Drug Abuse Patient Records regulations: The Federal rules restrict any use of the information to criminally investigate or prosecute any alcohol or drug abuse patient.[facility] [place] [facility] HospitalIn the event this information is protected by the Federal Confidentiality of Alcohol and Drug Abuse Patient Records regulations: The Federal rules restrict any use of the information to criminally investigate or prosecute any alcohol or drug abuse patient.[facility] [place] [facility] HospitalIn the event this information is protected by the Federal Confidentiality of Alcohol and Drug Abuse Patient Records regulations: The Federal rules restrict any use of the information to criminally investigate or prosecute any alcohol or drug abuse patient.[facility] [place] [facility] HospitalIn the event this information is protected by the Federal Confidentiality of Alcohol and Drug Abuse Patient Records regulations: The Federal rules restrict any use of the information to criminally investigate or prosecute any alcohol or drug abuse patient.[facility] [place] [facility] HospitalIn the event this information is protected by the Federal Confidentiality of Alcohol and Drug Abuse Patient Records regulations: The Federal rules restrict any use of the information to criminally investigate or prosecute any alcohol or drug abuse patient.[facility] [place] [facility] HospitalIn the event this information is protected by the Federal Confidentiality of Alcohol and Drug Abuse Patient Records regulations: The Federal rules restrict any use of the information to criminally investigate or prosecute any alcohol or drug abuse patient.[facility] [place] [facility] HospitalIn the event this information is protected by the Federal Confidentiality of Alcohol and Drug Abuse Patient Records regulations: The Federal rules restrict any use of the information to criminally investigate or prosecute any alcohol or drug abuse patient.[facility] [place] [facility] HospitalIn the event this information is protected by the Federal Confidentiality of Alcohol and Drug Abuse Patient Records regulations: The Federal rules restrict any use of the information to criminally investigate or prosecute any alcohol or drug abuse patient.[facility] [place] [facility] HospitalIn the event this information is protected by the Federal Confidentiality of Alcohol and Drug Abuse Patient Records regulations: The Federal rules restrict any use of the information to criminally investigate or prosecute any alcohol or drug abuse patient.[facility] [place] [facility] HospitalIn the event this information is protected by the Federal Confidentiality of Alcohol and Drug Abuse Patient Records regulations: The Federal rules restrict any use of the information to criminally investigate or prosecute any alcohol or drug abuse patient.[facility] [place] [facility] HospitalIn the event this information is protected by the Federal Confidentiality of Alcohol and Drug Abuse Patient Records regulations: The Federal rules restrict any use of the information to criminally investigate or prosecute any alcohol or drug abuse patient.[facility] [place] [facility] HospitalIn the event this information is protected by the Federal Confidentiality of Alcohol and Drug Abuse Patient Records regulations: The Federal rules restrict any use of the information to criminally investigate or prosecute any alcohol or drug abuse patient.[facility] [place] [facility] HospitalIn the event this information is protected by the Federal Confidentiality of Alcohol and Drug Abuse Patient Records regulations: The Federal rules restrict any use of the information to criminally investigate or prosecute any alcohol or drug abuse patient.[facility] [place] [facility] HospitalIn the event this information is protected by the Federal Confidentiality of Alcohol and Drug Abuse Patient Records regulations: The Federal rules restrict any use of the information to criminally investigate or prosecute any alcohol or drug abuse patient.[facility] [place] [facility] HospitalIn the event this information is protected by the Federal Confidentiality of Alcohol and Drug Abuse Patient Records regulations: The Federal rules restrict any use of the information to criminally investigate or prosecute any alcohol or drug abuse patient.[facility] [place] [facility] HospitalIn the event this information is protected by the Federal Confidentiality of Alcohol and Drug Abuse Patient Records regulations: The Federal rules restrict any use of the information to criminally investigate or prosecute any alcohol or drug abuse patient.[facility] [place] [facility] HospitalIn the event this information is protected by the Federal Confidentiality of Alcohol and Drug Abuse Patient Records regulations: The Federal rules restrict any use of the information to criminally investigate or prosecute any alcohol or drug abuse patient.[facility] [place] [facility] HospitalIn the event this information is protected by the Federal Confidentiality of Alcohol and Drug Abuse Patient Records regulations: The Federal rules restrict any use of the information to criminally investigate or prosecute any alcohol or drug abuse patient.[facility] [place] [facility] HospitalIn the event this information is protected by the Federal Confidentiality of Alcohol and Drug Abuse Patient Records regulations: The Federal rules restrict any use of the information to criminally investigate or prosecute any alcohol or drug abuse patient.[facility] [place] [facility] HospitalIn the event this information is protected by the Federal Confidentiality of Alcohol and Drug Abuse Patient Records regulations: The Federal rules restrict any use of the information to criminally investigate or prosecute any alcohol or drug abuse patient.[facility] [place] [facility] HospitalIn the event this information is protected by the Federal Confidentiality of Alcohol and Drug Abuse Patient Records regulations: The Federal rules restrict any use of the information to criminally investigate or prosecute any alcohol or drug abuse patient.[facility] [place] [facility] HospitalIn the event this information is protected by the Federal Confidentiality of Alcohol and Drug Abuse Patient Records regulations: The Federal rules restrict any use of the information to criminally investigate or prosecute any alcohol or drug abuse patient.[facility] HospitalIn the event this information is protected by the Federal Confidentiality of Alcohol and Drug Abuse Patient Records regulations: The Federal rules restrict any use of the information to criminally investigate or prosecute any alcohol or drug abuse patient.[facility] HospitalIn the event this information is protected by the Federal Confidentiality of Alcohol and Drug Abuse Patient Records regulations: The Federal rules restrict any use of the information to criminally investigate or prosecute any alcohol or drug abuse patient.[facility] HospitalIn the event this information is protected by the Federal Confidentiality of Alcohol and Drug Abuse Patient Records regulations: The Federal rules restrict any use of the information to criminally investigate or prosecute any alcohol or drug abuse patient.[facility] [place] [facility] HospitalIn the event this information is protected by the Federal Confidentiality of Alcohol and Drug Abuse Patient Records regulations: The Federal rules restrict any use of the information to criminally investigate or prosecute any alcohol or drug abuse patient.[facility] [place] [facility] HospitalIn the event this information is protected by the Federal Confidentiality of Alcohol and Drug Abuse Patient Records regulations: The Federal rules restrict any use of the information to criminally investigate or prosecute any alcohol or drug abuse patient.[facility] HospitalIn the event this information is protected by the Federal Confidentiality of Alcohol and Drug Abuse Patient Records regulations: The Federal rules restrict any use of the information to criminally investigate or prosecute any alcohol or drug abuse patient.[facility] HospitalIn the event this information is protected by the Federal Confidentiality of Alcohol and Drug Abuse Patient Records regulations: The Federal rules restrict any use of the information to criminally investigate or prosecute any alcohol or drug abuse patient.[facility] HospitalIn the event this information is protected by the Federal Confidentiality of Alcohol and Drug Abuse Patient Records regulations: The Federal rules restrict any use of the information to criminally investigate or prosecute any alcohol or drug abuse patient.[facility] HospitalIn the event this information is protected by the Federal Confidentiality of Alcohol and Drug Abuse Patient Records regulations: The Federal rules restrict any use of the information to criminally investigate or prosecute any alcohol or drug abuse patient.[facility] HospitalIn the event this information is protected by the Federal Confidentiality of Alcohol and Drug Abuse Patient Records regulations: The Federal rules restrict any use of the information to criminally investigate or prosecute any alcohol or drug abuse patient.[facility] [place] [facility] HospitalIn the event this information is protected by the Federal Confidentiality of Alcohol and Drug Abuse Patient Records regulations: The Federal rules restrict any use of the information to criminally investigate or prosecute any alcohol or drug abuse patient.[facility] HospitalIn the event this information is protected by the Federal Confidentiality of Alcohol and Drug Abuse Patient Records regulations: The Federal rules restrict any use of the information to criminally investigate or prosecute any alcohol or drug abuse patient.[facility] HospitalIn the event this information is protected by the Federal Confidentiality of Alcohol and Drug Abuse Patient Records regulations: The Federal rules restrict any use of the information to criminally investigate or prosecute any alcohol or drug abuse patient.[facility] HospitalIn the event this information is protected by the Federal Confidentiality of Alcohol and Drug Abuse Patient Records regulations: The Federal rules restrict any use of the information to criminally investigate or prosecute any alcohol or drug abuse patient.[facility] HospitalIn the event this information is protected by the Federal Confidentiality of Alcohol and Drug Abuse Patient Records regulations: The Federal rules restrict any use of the information to criminally investigate or prosecute any alcohol or drug abuse patient.[facility] HospitalIn the event this information is protected by the Federal Confidentiality of Alcohol and Drug Abuse Patient Records regulations: The Federal rules restrict any use of the information to criminally investigate or prosecute any alcohol or drug abuse patient.[facility] HospitalIn the event this information is protected by the Federal Confidentiality of Alcohol and Drug Abuse Patient Records regulations: The Federal rules restrict any use of the information to criminally investigate or prosecute any alcohol or drug abuse patient.[facility] HospitalIn the event this information is protected by the Federal Confidentiality of Alcohol and Drug Abuse Patient Records regulations: The Federal rules restrict any use of the information to criminally investigate or prosecute any alcohol or drug abuse patient.[facility] HospitalIn the event this information is protected by the Federal Confidentiality of Alcohol and Drug Abuse Patient Records regulations: The Federal rules restrict any use of the information to criminally investigate or prosecute any alcohol or drug abuse patient.[facility] HospitalIn the event this information is protected by the Federal Confidentiality of Alcohol and Drug Abuse Patient Records regulations: The Federal rules restrict any use of the information to criminally investigate or prosecute any alcohol or drug abuse patient.[facility] HospitalIn the event this information is protected by the Federal Confidentiality of Alcohol and Drug Abuse Patient Records regulations: The Federal rules restrict any use of the information to criminally investigate or prosecute any alcohol or drug abuse patient.[facility] HospitalIn the event this information is protected by the Federal Confidentiality of Alcohol and Drug Abuse Patient Records regulations: The Federal rules restrict any use of the information to criminally investigate or prosecute any alcohol or drug abuse patient.[facility] HospitalIn the event this information is protected by the Federal Confidentiality of Alcohol and Drug Abuse Patient Records regulations: The Federal rules restrict any use of the information to criminally investigate or prosecute any alcohol or drug abuse patient.[facility] HospitalIn the event this information is protected by the Federal Confidentiality of Alcohol and Drug Abuse Patient Records regulations: The Federal rules restrict any use of the information to criminally investigate or prosecute any alcohol or drug abuse patient.[facility] HospitalIn the event this information is protected by the Federal Confidentiality of Alcohol and Drug Abuse Patient Records regulations: The Federal rules restrict any use of the information to criminally investigate or prosecute any alcohol or drug abuse patient.[facility] HospitalIn the event this information is protected by the Federal Confidentiality of Alcohol and Drug Abuse Patient Records regulations: The Federal rules restrict any use of the information to criminally investigate or prosecute any alcohol or drug abuse patient.[facility] Reason for Visit (unrecogniz ed section and content) Reason Comments PT Discharge Specialty Diagnoses / Procedures Referred By Jenny t Referred To Contact [facility] Diagnoses Leg weakness, bilateral Procedures CONSULT TO PHYSICAL THERAPY PHYSICAL THERAPY EVALUATION HIGH COMPLEX 45 MINS Radha Batista, ADIEL.TANNING SALON ATTENDANT [address] [place] [address] [facility] [place] [address] [place] [address] Referral ID Status Reason Start Date Expiration Date Visits Requested Visits Authorized [id number] Authorized PCP Requested Referral Auto-Generate d Referral 10/13/2023 10/12/2024 99 99 Reason Comments Physical Therapy Reason Comments Physical Therapy Patient Left Without Being Seen Reason Comments PT Progress Note Physical Therapy Reason Onset Date Comments Refill Request 01/11/2022 Reason Onset Date Comments Refill Request 01/14/2022 [...] swelling x1 day, visual screening with glasses . Reason Onset Date Comments Refill Request 08/15/2022 [...] NM Specialty Diagnoses / Procedures Referred By Contac t Referred To Contact [facility] Diagnoses Chest pain, unspecified type Procedures NM CARDIAC PERF STRESS/PHARM MYOCARDIAL SPECT MULTIPLE STUDIES Radha Batista, RUBBER CUTTER AND SHAPE CARVER.[employer]ANNING [employer]ON ATTENDANT [address] [place] [address] [facility] [address] [place] [address] Referral ID Status Reason Start Date Expiration Date V isits Requested Visits Authorized [id number] Closed Auto-Generate d Referral 05/15/2023 10/12/2023 3 [...] Reason Onset Date Comments Refill Request 12/02/2023 Reason Comments Recheck Follow up- pain in l ower b/l extremities; meloxicam is not working; difficulty walking Reason Comments PT Eval Reason Onset Date Comments Refill Request 01/29/2024 Reason Comments Insurance Authorization [employer] Reason Onset Date Comments Refill Request 02/24/2024 Reason Comments Acute Visit Complaints of legs f eeling heavy since starting celebrex Reason Comments Patient Update Call from nurse on-c all last evening on March 11 regarding hyperglycemia Reason Comments Acute Visit Weakness/pale in col or yesterday (see PT note) Reason Comments Patient Update Reason Onset Date Comments Refill Request 03/19/2024 Reason Comments Recheck 1 week follow up- re started sliding scale insulin; increased basaglar Reason Comments Acute Visit Itchy rash in groin x couple weeks; using otc vaseline Reason Onset Date Comments Refill Request 04/16/2024 Reason Onset Date Comments Refill Request 05/03/2024 Reason Comments Medication Problem Reason Onset Date Comments Refill Request 05/18/2024 Reason Onset Date Comments Refill Request 06/09/2024 Reason Onset Date Comments Refill Request 06/17/2024 Reason Comments Recheck 3 month follow up Reason Onset Date Comments Refill Request 07/09/2024 Reason Comments Medication issue Reason Comments Eye Problem Left eye pain x 1 we ek, redness States she has had a cold for a few days but no other changes Reason Onset Date Comments Refill Request 07/29/2024 Reason Comments Information Reason Comments took another long term patient s medica tions Reason Comments Clinical Update Reason Onset Date Comments Refill Request 08/06/2024 Reason Comments Medication Request Cough drops Reason Onset Date Comments Refill Request 08/20/2024 Reason Comments Acute Visit Reason Onset Date Comments Refill Request 08/31/2024 Reason Comments Recheck 2 week follow up Reason Comments yearly check Reason Onset Date Comments Refill Request 09/24/2024 Reason Onset Date Comments Refill Request 10/04/2024 Reason Onset Date Comments Refill Request 10/29/2024 Reason Comments Recheck Follow up on bilater al leg pain Reason Comments Chest Congestion cough, nasal congest ion x 2 days Reason Onset Date Comments Refill Request 2024 Reason Onset Date Comments Refill Request 11/25/2024 Reason Comments Appointment Reason Comments Recheck 1 month follow up Reason Onset Date Comments Refill Request 12/08/2024 Reason Comments Follow Up Reason Onset Date Comments Refill Request 12/30/2024 Reason Onset Date Comments Refill Request 01/03/2025 Reason Comments Follow Up Reason Comments Orders Reason Comments Results Reason Comments Radiology US Specialty Diagnoses / Procedures Referred By Jenny t Referred To Contact [facility] Diagnoses Elevated liver enzymes Procedures US ABD RIGHT UPPER QUADRANT US ABDOMINAL REAL TIME W/IMAGE LIMITED Aleksandar Jones MD [address] [place] [address] Phone: tel: fax: [place] [phone] Referral ID Status Reason Start Date Expiration Date V isits Requested Visits Authorized [id number] Closed Auto-Generate d Referral 01/18/2025 02/03/2026 1 1 Reason Comments Forms Reason Onset Date Comments Refill Request 01/25/2025 Reason Onset Date Comments Refill Request 02/18/2025 Reason Comments Letter Care Teams (unrecognized sec tion and content) Floor Assembler Relationship Specialty Start Date End Date Aleksandar Jones MD [address] [place], [place] [id number] PCP - General Family Practice 12/26/14 Koby Ramirez V [address] [place] [address] Internal Medicine 07/22/18 Yolie Mars Other 05/30/14 Long-Term 12/18/17 clark marr [facility] 10/25/19 Floor Assembler Relationship Specialty Start Date End Date Aleksandar Jones MD [address] [place] [address] PCP - General Family Practice 12/26/14 Koby Ramirez V [address] [place] [address] Internal Medicine 07/22/18 Yolie Mars Other 05/30/14 Long-Term 12/18/17 clark marr [facility] 10/25/19 Floor Assembler Relationship Specialty Start Date End Date Aleksandar Jones MD [address] [place] [address] PCP - General Family Practice 12/26/14 Koby Ramirez V [address] [place] [phone] Internal Medicine 07/22/18 Yolie Mars Other 05/30/14 Long-Term 12/18/17 clark [facility] 10/25/19 Floor Assembler Relationship Specialty Start Date End Date Aleksandar Jones MD [address] [place] [address] PCP - General Family Practice 12/26/14 Koby Ramirez V [address] [place] [address] Internal Medicine 07/22/18 Yolie Mars Other 05/30/14 Long-Term 12/18/17 clark [facility]r [facility] 10/25/19 Floor Assembler Relationship Specialty Start Date End Date Aleksandar Jones MD [address] [place] [address] PCP - General Family Practice 12/26/14 Koby Ramirez V [address] [place] [phone] Internal Medicine 07/22/18 Yolie Mars Other 05/30/14 Long-Term 12/18/17 [facility] 10/25/19 Floor Assembler Relationship Specialty Start Date End Date Aleksandar Jones MD [address] [place] [address] PCP - General Family Practice 12/26/14 Koby Ramirez V [address] [place] [phone] Internal Medicine 07/22/18 Yolie Mars Other 05/30/14 Long-Term 12/18/17 clark marr [facility] 10/25/19 Floor Assembler Relationship Specialty Start Date End Date Aleksandar Jones MD [address] [place] [address] PCP - General Family Practice 12/26/14 Koby Ramirez V [address] [place] [phone] Internal Medicine 07/22/18 Yolie Mars Other 05/30/14 Long-Term 12/18/17 clark [facility] 10/25/19 Floor Assembler Relationship Specialty Start Date End Date Aleksandar Jones MD [address] [place] [address] PCP - General Family Medicine 12/26/14 Koby Ramirez V [address] [place] [address] Internal Medicine 07/22/18 Yolie Mars Other 05/30/14 Long-Term 12/18/17 [facility] 10/25/19 Floor Assembler Relationship Specialty Start Date End Date Aleksandar Jones MD [address] [place] [address] PCP - General Family Medicine 12/26/14 Koby Ramirez V [address] [place] [address] Internal Medicine 07/22/18 Yolie Mars Other 05/30/14 Long-Term 12/18/17 [facility] [place] [facility] 10/25/19 Floor Assembler Relationship Specialty Start Date End Date Aleksandar Jones MD [address] [place] [address] PCP - General Family Medicine 12/26/14 Koby Ramirez V [address] [place] [address] Internal Medicine 07/22/18 Yolie Mars Other 05/30/14 Long-Term 12/18/17 [facility] 10/25/19 Floor Assembler Relationship Specialty Start Date End Date Aleksandar Jones MD [address] [place] [address] PCP - General Family Medicine 12/26/14 Koby Ramirez V [address] [place] [address] Internal Medicine 07/22/18 Yolie Mars Other 05/30/14 Long-Term 12/18/17 [facility] 10/25/19 Floor Assembler Relationship Specialty Start Date End Date Aleksandar Jones MD [address] [place] [address] PCP - General Family Medicine 12/26/14 Koby Ramirez V [address] [place] [phone] Internal Medicine 07/22/18 Yolie Mars Other 05/30/14 Long-Term 12/18/17 [facility] 10/25/19 Floor Assembler Relationship Specialty Start Date End Date Aleksandar Jones MD [address] [place] [address] PCP - General Family Medicine 12/26/14 Koby Ramirez V [address] [place] [address] Internal Medicine 07/22/18 Yolie Mars Other 05/30/14 Long-Term 12/18/17 clark justa DME 10/25/19 Floor Assembler Relationship Specialty Start Date End Date Aleksandar Jones MD [address] [place] [address] PCP - General Family Medicine 12/26/14 Koby Ramirez V [address] [place] [address] Internal Medicine 07/22/18 Yolie Mars Other 05/30/14 Long-Term 12/18/17 clark marr DME 10/25/19 Floor Assembler Relationship Specialty Start Date End Date Aleksandar Jones MD [address] [facility], [place] [address] PCP - General Family Medicine 12/26/14 Koby Ramirez V [address] [place] [address] Internal Medicine 07/22/18 Yolie Mars Other 05/30/14 Long-Term 12/18/17 clark marr DME 10/25/19 Floor Assembler Relationship Specialty Start Date End Date Aleksandar Jones MD [address] [facility] [place] [address] PCP - General Family Medicine 12/26/14 Koby Ramirez V [address] [place] [address] Internal Medicine 07/22/18 Yolie Mars Other 05/30/14 Long-Term 12/18/17 clark justa DME 10/25/19 Team Status: Active Member Role Status Dates Dr. Aleksandar Jones MD Family Provider Active Dr. Aleksandar Jones MD Primary Care Provider Active Team Status: Inactive Member Role Status Dates Dr. Aleksandar Jones MD Primary Care Provider, Family Pr ovider Active Dr. Lorraine Springer MD Attending Provider, Referring P kitty Active Floor Assembler Relationship Specialty Start Date End Date Aleksandar Jones MD [address] [facility], [place] [id number] PCP - General Family Medicine 12/26/14 Koby Ramirez V [address] [place] [address] Internal Medicine 07/22/18 Yolie Mars Other 05/30/14 Long-Term 12/18/17 clark marr DME 10/25/19 Floor Assembler Relationship Specialty Start Date End Date Aleksandar Jones MD [address] [facility] [place], [place] [id number] PCP - General Family Medicine 12/26/14 Koby Ramirez V [address] [place] [address] Internal Medicine 07/22/18 Yolie Mars Other 05/30/14 Long-Term 12/18/17 clark marr DME 10/25/19 Team Status: Inactive Member Role Status Dates Dr. Aleksandar Jones MD Primary Care Provider Active Dr. Koby Ramirez MD Attending Provider, Joan bryan Provider Active Floor Assembler Relationship Specialty Start Date End Date Aleksandar Jones MD [address] [facility] [place], [place] [id number] PCP - General Family Medicine 12/26/14 Koby Ramirez V [address] [place] [address] Internal Medicine 07/22/18 Yolie Mars Other 05/30/14 Long-Term 12/18/17 clark marr DME 10/25/19 Floor Assembler Relationship Specialty Start Date End Date Aleksandar Jones MD [address] [place] [place] [address] PCP - General Family Medicine 12/26/14 Koby Ramirez V [address] [place] [address] Internal Medicine 07/22/18 Yolie Mars Other 05/30/14 Long-Term 12/18/17 corner stone D[employer] 10/25/19 Floor Assembler Relationship Specialty Start Date End Date Aleksandar Jones MD [address] [place] [place] [address] PCP - General Family Medicine 12/26/14 Koby Ramirez V [address] [place] [address] Internal Medicine 07/22/18 Yolie Mars Other 05/30/14 Long-Term 12/18/17 [facility] 10/25/19 Floor Assembler Relationship Specialty Start Date End Date Aleksandar Jones MD [address] [place] [place] [address] PCP - General Family Medicine 12/26/14 Koby Ramirez V [address] [place] [address] Internal Medicine 07/22/18 Yolie Mars Other 05/30/14 Long-Term 12/18/17 [facility] stone [facility] 10/25/19 Floor Assembler Relationship Specialty Start Date End Date Aleksandar Jones MD [address] [place] [place] [address] PCP - General Family Medicine 12/26/14 Koby Ramirez V [address] [place] [address] Internal Medicine 07/22/18 Yolie Mars Other 05/30/14 Long-Term 12/18/17 clark marr DME 10/25/19 Floor Assembler Relationship Specialty Start Date End Date Aleksandar Jones MD [address] [place] [place] [address] PCP - General Family Medicine 12/26/14 Koby Ramirez V [address] [place] [address] Internal Medicine 07/22/18 Yolie Mars Other 05/30/14 Long-Term 12/18/17 clark marr DME 10/25/19 Floor Assembler Relationship Specialty Start Date End Date Aleksandar Jones MD [address] [place] [place] [address] PCP - General Family Medicine 12/26/14 Koby Ramirez V [address] [place] [address] Internal Medicine 07/22/18 Yolie Mars Other 05/30/14 Long-Term 12/18/17 clark marr DME 10/25/19 Team Status: Active Member Role Status Dates Dr. Aleksandar Jones MD Primary Care Provider Active Dr. Jey Quesada , Emergency Provider Active Dr. Amy Moreno MD Admit Provider, Attending Provider, Other Provider Active Team Status: Active Member Role Status Dates Dr. Aleksandar Jones MD Primary Care Provider Active Dr. Jey Quesada , DO Emergency Provider Active Dr. Amy Moreno MD Admit Provider, Attending Prov ider Active Team Status: Active Member Role Status Dates Dr. Aleksandar Jones MD Primary Care Provider Active Dr. Jey Quesada , Emergency Provider Active Dr. Amy Moreno MD Admit Provider, Other Provider Active Dr. Hesham Noguera MD Attending Provider, Other Provid er Active Team Status: Inactive Member Role Status Dates Dr. Aleksandar Jones MD Primary Care Provider Active Dr. Jey Quesada , Emergency Provider Active Dr. Amy Moreno MD Admit Provider, Other Provider Active Dr. Hesham Noguera MD Attending Provider Active Floor Assembler Relationship Specialty Start Date End Date Aleksandar Jones MD [address] [place], [place] [address] PCP - General Family Medicine 12/26/14 Koby Ramirez V [address] [place] [address] Internal Medicine 07/22/18 Yolie Mars Other 05/30/14 Long-Term 12/18/17 clark marr DME 10/25/19 Floor Assembler Relationship Specialty Start Date End Date Aleksandar Jones MD [address] [place] [address] PCP - General Family Medicine 12/26/14 Koby Ramirez V [address] [place] [address] Internal Medicine 07/22/18 Yolie Mars Other 05/30/14 Long-Term 12/18/17 [facility] 10/25/19 Floor Assembler Relationship Specialty Start Date End Date Aleksandar Jones MD [address] [place] [address] PCP - General Family Medicine 12/26/14 Koby Ramirez V [address] [place] [address] Internal Medicine 07/22/18 Yolie Mars Other 05/30/14 Long-Term 12/18/17 corner stone [facility] 10/25/19 Floor Assembler Relationship Specialty Start Date End Date Aleksandar Jones MD [address] [place] [place] [place] [address] PCP - General Family Medicine 12/26/14 Koby Ramirez V [address] [place] [address] Internal Medicine 07/22/18 Yolie Mars Other 05/30/14 Long-Term 12/18/17 [facility] stone D[facility] 10/25/19 Floor Assembler Relationship Specialty Start Date End Date Aleksandar Jones MD [address] [place] [address] [place] [address] PCP - General Family Medicine 12/26/14 Koby Ramirez V [address] [place] [phone] Internal Medicine 07/22/18 Yolie Mars Other 05/30/14 Long-Term 12/18/17 clark marr DME 10/25/19 Team Status: Active Member Role Status Dates Dr. Aleksandar Jones MD Primary Care Provider Active Dr. Jey Quesada DO Emergency Provider Active Dr. Amy Moreno MD Admit Provider, Other Provider Active Dr. Hesham Noguera MD Attending Provider Active Team Status: Active Member Role Status Dates Dr. Aleksandar Jones MD Primary Care Provider, Family Pr ovider Active Dr. Lorraine Springer MD Attending Provider, Referring P kitty Active Floor Assembler Relationship Specialty Start Date End Date Aleksandar Jones MD [address] [place], [place] [address] PCP - General Family Medicine 12/26/14 Koby Ramirez V [address] [place] [address] Internal Medicine 07/22/18 Yolie Mars Other 05/30/14 Long-Term 12/18/17 clark marr DME 10/25/19 Team Status: Inactive Member Role Status Dates Dr. Aleksandar Jones MD Primary Care Provider Active Dr. Jey Quesada DO Emergency Provider Active Team Status: Inactive Member Role Status Dates Dr. Aleksandar Jones MD Primary Care Provider Active Dr. Jey Quesada DO Attending Provider, Emergency Provider Active Floor Assembler Relationship Specialty Start Date End Date Aleksandar Jones MD [address] [place], [place] [phone] PCP - General Family Medicine 12/26/14 Koby Ramirez V [address] [place] [address] Internal Medicine 07/22/18 Yolie Mars Other 05/30/14 Long-Term 12/18/17 [facility] 10/25/19 Floor Assembler Relationship Specialty Start Date End Date Aleksandar Jones MD [address] [place], [place] [address] PCP - General Family Medicine 12/26/14 Koby Ramirez V [address] [place] [address] Internal Medicine 07/22/18 Yolie Mars Other 05/30/14 Long-Term 12/18/17 clark marr DME 10/25/19 Floor Assembler Relationship Specialty Start Date End Date Aleksandar Jones MD [address] [place] [address] PCP - General Family Medicine 12/26/14 Koby Ramirez V [address] [place] [address] Internal Medicine 07/22/18 Yolie Mars Other 05/30/14 Long-Term 12/18/17 [facility] 10/25/19 Floor Assembler Relationship Specialty Start Date End Date Aleksandar Jones MD [address] [place] [place] [address] PCP - General Family Medicine 12/26/14 Koby Ramirez [address] [place] [place] [address] Internal Medicine 07/22/18 Yolie Mars Other 05/30/14 Long-Term 12/18/17 [facility] 10/25/19 Floor Assembler Relationship Specialty Start Date End Date Aleksandar Jones MD [address] [place] [place] [place] [address] PCP - General Family Medicine 12/26/14 Koby Ramirze V [address] [place] [address] Internal Medicine 07/22/18 Yolie Mars Other 05/30/14 Long-Term 12/18/17 [facility] 10/25/19 Floor Assembler Relationship Specialty Start Date End Date Aleksandar Jones MD [address] [place] [place] [place] [address] PCP - General Family Medicine 12/26/14 Koby Ramirez V [address] [place] [address] Internal Medicine 07/22/18 Yolie Mars Other 05/30/14 Long-Term 12/18/17 [facility] 10/25/19 Floor Assembler Relationship Specialty Start Date End Date Aleksandar Jones MD [address] [place] [place] [address] PCP - General Family Medicine 12/26/14 Koby Ramirez V [address] [place] [address] [place] [address] Internal Medicine 07/22/18 Yolie Rodriguezi Other 05/30/14 Long-Term 12/18/17 [facility] 10/25/19 Floor Assembler Relationship Specialty Start Date End Date Aleksandar Jones MD [address] [place] [place] [address] PCP - General Family Medicine 12/26/14 Koby Ramirez V [address] [place] [address] Internal Medicine 07/22/18 Yolie Mars Other 05/30/14 Long-Term 12/18/17 [facility] 10/25/19 Floor Assembler Relationship Specialty Start Date End Date Aleksandar Jones MD [address] [place] [place] [address] PCP - General Family Medicine 12/26/14 Koby Ramirez V [address] [place] [address] Internal Medicine 07/22/18 Yolie Rodriguezi Other 05/30/14 Long-Term 12/18/17 clark marr DME 10/25/19 Floor Assembler Relationship Specialty Start Date End Date Aleksandar Jones MD [address] [place], [place] [address] PCP - General Family Medicine 12/26/14 Koby Ramirez V [address] [place] [address] Internal Medicine 07/22/18 Yolie Mars Other 05/30/14 Long-Term 12/18/17 clark marr DME 10/25/19 Floor Assembler Relationship Specialty Start Date End Date Aleksandar Jones MD [address] [place], [place] [address] PCP - General Family Medicine 12/26/14 Koby Ramirez V [address] [place] [address] Internal Medicine 07/22/18 Yolie Mars Other 05/30/14 Long-Term 12/18/17 clark marr DME 10/25/19 Floor Assembler Relationship Specialty Start Date End Date Aleksandar Jones MD [address] [place] [place] [address] PCP - General Family Medicine 12/26/14 Koby Ramirez V [address] [place] [address] Internal Medicine 07/22/18 Yolie Mars Other 05/30/14 Long-Term 12/18/17 [facility] 10/25/19 Floor Assembler Relationship Specialty Start Date End Date Aleksandar Jones MD [address] [place], [place] [address] PCP - General Family Medicine 12/26/14 Koby Ramirez V [address] [place] [address] Internal Medicine 07/22/18 Yolie Mars Other 05/30/14 Long-Term 12/18/17 clark marr DME 10/25/19 Floor Assembler Relationship Specialty Start Date End Date Aleksandar Jones MD [address] [place], [place] [address] PCP - General Family Medicine 12/26/14 Koby Ramirez V [address] [place] [place] [address] Internal Medicine 07/22/18 Yolie Mars Other 05/30/14 Long-Term 12/18/17 clark marr DME 10/25/19 Floor Assembler Relationship Specialty Start Date End Date Aleksandar Jones MD [address] [place] [place] [address] PCP - General Family Medicine 12/26/14 Koby Ramirez V [address] [place] [place] [address] Internal Medicine 07/22/18 Yolie Rodriguezi Other 05/30/14 Long-Term 12/18/17 clark marr DME 10/25/19 Floor Assembler Relationship Specialty Start Date End Date Aleksandar Jones MD [address] [place], [place] [address] PCP - General Family Medicine 12/26/14 Koby Ramirez V [address] [place] [address] Internal Medicine 07/22/18 Yolie Mars Other 05/30/14 Long-Term 12/18/17 clark justa DME 10/25/19 Floor Assembler Relationship Specialty Start Date End Date Aleksandar Jones MD [address] [place] [address] PCP - General Family Medicine 12/26/14 Koby Ramirez V [address] [place] [address] Internal Medicine 07/22/18 Yolie Mars Other 05/30/14 Long-Term 12/18/17 clark marr DME 10/25/19 Floor Assembler Relationship Specialty Start Date End Date Aleksandar Jones MD [address] [place] [place] [address] PCP - General Family Medicine 12/26/14 Koby Ramirez V [address] [place] [address] Internal Medicine 07/22/18 Yolie Mars Other 05/30/14 Long-Term 12/18/17 [facility] 10/25/19 Floor Assembler Relationship Specialty Start Date End Date Aleksandar Jones MD [address] [place] [place] [address] PCP - General Family Medicine 12/26/14 Koby Ramirez V [address] [place] [address] Internal Medicine 07/22/18 Yolie Mars Other 05/30/14 Long-Term 12/18/17 corner justa DME 10/25/19 Floor Assembler Relationship Specialty Start Date End Date Aleksandar Jones MD [address] [place] [place] [address] PCP - General Family Medicine 12/26/14 Koby Ramirez V [address] [place] [address] Internal Medicine 07/22/18 Yolie Mars Other 05/30/14 Long-Term 12/18/17 [facility] 10/25/19 Floor Assembler Relationship Specialty Start Date End Date Aleksandar Jones MD [address] [place] [place] [address] PCP - General Family Medicine 12/26/14 oKby Ramirez V [address] [place] [address] Internal Medicine 07/22/18 Kaitlyn Sanders, [facility] [address] [place] [address] Pharmacist Pharmacy 08/31/20 10/17/21 Yolie Mars Other 05/30/14 Long-Term 12/18/17 [facility] 10/25/19 Floor Assembler Relationship Specialty Start Date End Date Aleksandar Jones MD [address] [place] [place] [address] PCP - General Family Medicine 12/26/14 Koby Ramirez V [address] [place] [address] Internal Medicine 07/22/18 TommyKaitlyn, [facility] [address] [place] [address] Pharmacist Pharmacy 08/31/20 10/17/21 Yolie Mars Other 05/30/14 Long-Term 12/18/17 [facility] 10/25/19 Floor Assembler Relationship Specialty Start Date End Date Aleksandar Jones MD [address] [place] [place] [address] PCP - General Family Medicine 12/26/14 Koby Ramirez V [address] [place] [address] Internal Medicine 07/22/18 Yolie Rodriguezi Other 05/30/14 Long-Term 12/18/17 [facility] 10/25/19 Floor Assembler Relationship Specialty Start Date End Date Aleksandar Jones MD [address] [place], [place] [address] PCP - General Family Medicine 12/26/14 Koby Ramirez V [address] [place] [address] Internal Medicine 07/22/18 Yolie Mars Other 05/30/14 Long-Term 12/18/17 clark marr DME 10/25/19 Floor Assembler Relationship Specialty Start Date End Date Aleksandar Jones MD [address] [place], [place] [address] PCP - General Family Medicine 12/26/14 Koby Ramirez V [address] [place] [address] Internal Medicine 07/22/18 Yolie Mars Other 05/30/14 Long-Term 12/18/17 clark marr DME 10/25/19 Floor Assembler Relationship Specialty Start Date End Date Aleksandar Jones MD [address] [place] [address] PCP - General Family Medicine 12/26/14 Koby Ramirez V [address] [place] [address] Internal Medicine 07/22/18 Radha Batista APRN.TANNING SALON ATTENDANT [address] [place] [address] Gravity Meter Operator Family Medicine 09/20/24 Shelia Salmon APRN.TANNING SALON ATTENDANT [address] [place] [address] Gravity Meter Operator Family Medicine 09/20/24 Yolie Mars Other 05/30/14 Long-Term 12/18/17 [facility] 10/25/19 Floor Assembler Relationship Specialty Start Date End Date Aleksandar Jones MD [address] [place] [place] [address] PCP - General Family Medicine 12/26/14 Koby Ramirez V [address] [place] [address] Internal Medicine 07/22/18 Radha Batista APRN.TANNING SALON ATTENDANT [address] [place] [address] Gravity Meter Operator Family Medicine 09/20/24 Shelia Salmon APRN.TANNING SALON ATTENDANT [address] [place] [place] [address] Gravity Meter Operator Family Medicine 09/20/24 Yolie Mars Other 05/30/14 Long-Term 12/18/17 [facility] 10/25/19 Floor Assembler Relationship Specialty Start Date End Date Aleksandar Jones MD [address] [place] [place] [address] PCP - General Family Medicine 12/26/14 Koby Ramirez V [address] [place] [address] Internal Medicine 07/22/18 Radha Batista APRN.TANNING SALON ATTENDANT [address] [place] [address] Gravity Meter Operator Family Medicine 09/20/24 Shelia Salmon APRN.TANNING SALON ATTENDANT [address] [place] [place] [address] Gravity Meter Operator Family Medicine 09/20/24 Yolie Mars Other 05/30/14 Long-Term 12/18/17 [facility] [place] [facility] 10/25/19 Floor Assembler Relationship Specialty Start Date End Date Aleksandar Jones MD [address] [place] [address] PCP - General Family Medicine 12/26/14 Koby Ramirez V [address] [place] [address] Internal Medicine 07/22/18 Radha Batista APRN.TANNING SALON ATTENDANT [address] [place] [address] Gravity Meter Operator Family Medicine 09/20/24 Shelia Salmon APRN.TANNING SALON ATTENDANT [address] [place] [place] [address] Gravity Meter Operator Family Medicine 09/20/24 Yolie Mars Other 05/30/14 Long-Term 12/18/17 clark [facility] 10/25/19 Floor Assembler Relationship Specialty Start Date End Date Aleksandar Jones MD [address] [place] [place] [address] PCP - General Family Medicine 12/26/14 Koby Ramirez V [address] [place] [address] Internal Medicine 07/22/18 Radha Batista APRN.TANNING SALON ATTENDANT [address] [place] [place] [address] Gravity Meter Operator Family Medicine 09/20/24 Shelia Salmon APRN.TANNING SALON ATTENDANT [address] [place] [place] [address] Gravity Meter Operator Family Medicine 09/20/24 Yolie Mars Other 05/30/14 Long-Term 12/18/17 clark [facility]r DME 10/25/19 Floor Assembler Relationship Specialty Start Date End Date Aleksandar Jones MD [address] [place], [place] [id number] PCP - General Family Medicine 12/26/14 Koby Ramirez V [address] [place] [address] Internal Medicine 07/22/18 Radha Batista, RUBBER CUTTER AND SHAPE CARVER.TANNING SALON ATTENDANT [address] [place] [address] Gravity Meter Operator Family Medicine 09/20/24 Shelia Salmon APRN.TANNING SALON ATTENDANT [address] [place] [place] [address] Gravity Meter Operator Family Medicine 09/20/24 Yolie Mars Other 05/30/14 Long-Term 12/18/17 [facility] 10/25/19 Floor Assembler Relationship Specialty Start Date End Date Aleksandar Jones MD [address] [place] [place] [address] PCP - General Family Medicine 12/26/14 Koby Ramirez V [address] [place] [address] Internal Medicine 07/22/18 Radha Batista, RUBBER CUTTER AND SHAPE CARVER.TANNING SALON ATTENDANT [address] [place] [address] Gravity Meter Operator Family Medicine 09/20/24 Shelia Salmon RUBBER CUTTER AND SHAPE CARVER.TANNING SALON ATTENDANT [address] [place] [place] [address] Gravity Meter Operator Family Medicine 09/20/24 Yolie Mars Other 05/30/14 Long-Term 12/18/17 [facility] 10/25/19 Floor Assembler Relationship Specialty Start Date End Date Aleksandar Jones MD [address] [place] [address]771 PCP - General Family Medicine 12/26/14 Koby Ramirez V [address] [place] [address] Internal Medicine 07/22/18 Radha Batista, ADIEL.TANNING SALON ATTENDANT [address] [place] [address] Gravity Meter Operator Family Medicine 09/20/24 Shelia Salmon APRN.TANNING SALON ATTENDANT [address] [place] [place] [address] Gravity Meter Operator Family Medicine 09/20/24 Yolie Mars Other 05/30/14 Long-Term 12/18/17 [facility] 10/25/19 Floor Assembler Relationship Specialty Start Date End Date Aleksandar Jones MD [address] [place], [place] [address] PCP - General Family Medicine 12/26/14 Koby Ramirez V [address] [place] [phone] Internal Medicine 07/22/18 Radha Batista, ADIEL.TANNING SALON ATTENDANT [address] [facility] [place] [address] Gravity Meter Operator Family Medicine 09/20/24 Shelia Salmon APRN.TANNING SALON ATTENDANT [address] [facility] [address] Gravity Meter Operator Family Medicine 09/20/24 Yolie Rodriguezjose alfredo Other 05/30/14 Long-Term 12/18/17 [facility] 10/25/19 Floor Assembler Relationship Specialty Start Date End Date Aleksandar Jones MD [address] [place], [place] [address] PCP - General Family Medicine 12/26/14 Koby Ramirez V [address] [place] [phone] Internal Medicine 07/22/18 Radha Batista, RUBBER CUTTER AND SHAPE CARVER.TANNING SALON ATTENDANT [address] [place] [address] Gravity Meter Operator Family Medicine 09/20/24 Shelia Salmon RUBBER CUTTER AND SHAPE CARVER.TANNING SALON ATTENDANT [address] [place] [place] [place] [address] Gravity Meter Operator Family Medicine 09/20/24 Yolie Rodriguezjose alfredo Other 05/30/14 Long-Term 12/18/17 clark [facility] 10/25/19 Floor Assembler Relationship Specialty Start Date End Date Aleksandar Jones MD [address] [place] [place] [address] PCP - General Family Medicine 12/26/14 Koby Ramirez V [address] [place] [address] Internal Medicine 07/22/18 Radha Batista, RUBBER CUTTER AND SHAPE CARVER.TANNING SALON ATTENDANT [address] [place] [address] Gravity Meter Operator Family Medicine 09/20/24 Shelia Salmon APRN.TANNING SALON ATTENDANT [address] [place] [place] [place] [address] Gravity Meter Operator Family Medicine 09/20/24 Yolie Mars Other 05/30/14 Long-Term 12/18/17 [facility] 10/25/19 Floor Assembler Relationship Specialty Start Date End Date Aleksandar Jones MD [address] [place] [address] PCP - General Family Medicine 12/26/14 Koby Ramirez V [address] [facility] [phone] Internal Medicine 07/22/18 Radha Batista APRN.TANNING SALON ATTENDANT [address] [facility] [place] [address] Gravity Meter Operator Family Medicine 09/20/24 Shelia Salmon, RUBBER CUTTER AND SHAPE CARVER.TANNING SALON ATTENDANT [address] [place] [place] [place] [address] Gravity Meter Operator Family Medicine 09/20/24 Yolie Mars Other 05/30/14 Long-Term 12/18/17 [facility] 10/25/19 Floor Assembler Relationship Specialty Start Date End Date Aleksandar Jones MD [address] [facility] [address] PCP - General Family Medicine 12/26/14 Koby Ramirez V [address] [place] [address] Internal Medicine 07/22/18 Radha Batista, ADIEL.TANNING SALON ATTENDANT [address] [place] [address] Gravity Meter Operator Family Medicine 09/20/24 Shelia Salmon RUBBER CUTTER AND SHAPE CARVER.TANNING SALON ATTENDANT [address] [place] [address] Gravity Meter Operator Family Medicine 09/20/24 Yolie Mars Other 05/30/14 Long-Term 12/18/17 corner stone DME 10/25/19 Floor Assembler Relationship Specialty Start Date End Date Aleksandar Jones MD [address] [place] [address] PCP - General Family Medicine 12/26/14 Koby Ramirez V [address] [place] [address] Internal Medicine 07/22/18 Radha Batista, ADIEL.TANNING SALON ATTENDANT [address] [place] [address] Gravity Meter Operator Family Medicine 09/20/24 Shelia Salmon RUBBER CUTTER AND SHAPE CARVER.TANNING SALON ATTENDANT [address] [place] [address] Gravity Meter Operator Family Medicine 09/20/24 Yolie Mars Other 05/30/14 Long-Term 12/18/17 corner stone DME 10/25/19 Floor Assembler Relationship Specialty Start Date End Date Aleksandar Jones MD [address] [place] [address] PCP - General Family Medicine 12/26/14 Koby Ramirez V [address] [place] [phone] Internal Medicine 07/22/18 Radha Batista APRN.TANNING SALON ATTENDANT [address] [place] [address] Gravity Meter Operator Family Medicine 09/20/24 Shelia Salmon APRN.TANNING SALON ATTENDANT [address] [place] [address] Gravity Meter Operator Family Medicine 09/20/24 Yolie Mars Other 05/30/14 Long-Term 12/18/17 clark marr DME 10/25/19 Floor Assembler Relationship Specialty Start Date End Date Aleksandar Jones MD [address] [place] [address] PCP - General Family Medicine 12/26/14 Koby Ramirez V [address] [place] [phone] Internal Medicine 07/22/18 Radha Batista APRN.TANNING SALON ATTENDANT [address] [place] [address] Gravity Meter Operator Family Medicine 09/20/24 Shelia Salmon APRN.TANNING SALON ATTENDANT [address] [place] [address] Gravity Meter Operator Family Medicine 09/20/24 Yolie Mars Other 05/30/14 Long-Term 12/18/17 clark ASHBY 10/25/19 Team Status: Active Member Role Status Dates ESEQUIEL Headley Primary Care Provider Active Team Status: Inactive Member Role Status Dates Dr. Aleksandar Jones MD Family Provider Active Sta rt: August 25, 2024 End: September 11, 2024 Dr. Lorraine Springer MD Attending Provider Active Start: August 25, 2024 End: September 11, 2024 Dr. Lorraine Springer MD Referring Provider Active Start: August 25, 2024 End: September 11, 2024 Shelia Salmon MANAGER MAIL Primary Care Provider Active Start: August 25, 2024 End: September 11, 2024 Team Status: Inactive Member Role Status Dates Dr. Aleksandar Jones MD Family Provider Active Sta rt: September 16, 2024 End: September 16, 2024 Dr. Lorraine Springer MD Attending Provider Active Start: September 16, 2024 End: September 16, 2024 Dr. Lorraine Springer MD Referring Provider Active Start: September 16, 2024 End: September 16, 2024 Shelia Salmon MANAGER MAIL Primary Care Provider Active Start: September 16, 2024 End: September 16, 2024 Team Status: Inactive Member Role Status Dates Dr. Aleksandar Jones MD Family Provider Active Sta rt: October 14, 2024 End: October 14, 2024 Dr. Lorraine Springer MD Attending Provider Active Start: October 14, 2024 End: October 14, 2024 Dr. Lorraine Springer MD Referring Provider Active Start: October 14, 2024 End: October 14, 2024 Shelia Salmon , MANAGER MAIL Primary Care Provider Active Start: October 14, 2024 End: October 14, 2024 Team Status: Inactive Member Role Status Dates Shelia Salmon MANAGER MAIL Primary Care Provider Active Start: October 14, 2024 End: October 14, 2024 Dr. Tae Holland DO Attending Provider Active Start: October 14, 2024 End: October 14, 2024 Dr. Tae Holland , DO Referring Provider Active Start: October 14, 2024 End: October 14, 2024 Dr. Tae Holland DO Emergency Provider Active Start: October 14, 2024 End: October 14, 2024 Team Status: Inactive Member Role Status Dates Shelia Suppan , MANAGER MAIL Primary Care Provider Active Start: November 09, 2024 End: November 12, 2024 Dr. Francisco Thompson , Emergency Provider Active Start: November 09, 2024 End: November 12, 2024 Dr. Hesham Amato , Admit Provider Active Start: November 09, 2024 End: November 12, 2024 Dr. Hesham Amato , Other Provider Active Start: November 09, 2024 End: November 12, 2024 Dr. Ana Lilia Lebron , Attending Provider Active Start: November 09, 2024 End: November 12, 2024 Team Status: Active Member Role Status Dates Shelia Suppan , MANAGER MAIL Primary Care Provider Active Start: November 10, 2024 Dr. Francisco Thompson DO Emergency Provider Active Start: November 10, 2024 Dr. Hesham Amato , Admit Provider Active Start: November 10, 2024 Dr. Hesham Amato , Other Provider Active Start: November 10, 2024 Dr. Ana Lilia Lebron DO Attending Provider Active Start: November 10, 2024 Dr. Ana Lilia Lebron , Other Provider Active S tart: November 10, 2024 Team Status: Active Member Role Status Dates Shelia Suppan , MANAGER MAIL Primary Care Provider Active Start: November 11, 2024 Dr. Francisco Thompson DO Emergency Provider Active Start: November 11, 2024 Dr. Hesham Amato DO Admit Provider Active Start: November 11, 2024 Dr. Hesham Amato , Other Provider Active Start: November 11, 2024 Dr. Ana Lilia Lebron , Attending Provider Active Start: November 11, 2024 Dr. Ana Lilia Lebron , Other Provider Active S tart: November 11, 2024 Team Status: Active Member Role Status Dates Shelia Suppan , MANAGER MAIL Primary Care Provider Active Start: November 12, 2024 Dr. Francisco Thompson DO Emergency Provider Active Start: November 12, 2024 Dr. Hesham Amato DO Admit Provider Active Start: November 12, 2024 Dr. Hesham Amato DO Other Provider Active Start: November 12, 2024 Dr. Ana Lilia Lebron DO Attending Provider Active Start: November 12, 2024 Dr. Ana Lilia Lebron DO Other Provider Active S tart: November 12, 2024 Team Status: Inactive Member Role Status Dates Dr. Aleksandar Jones MD Family Provider Active Sta rt: December 08, 2024 End: December 10, 2024 Dr. Lorraine Springer MD Attending Provider Active Start: December 08, 2024 End: December 10, 2024 Dr. Lorraine Springer MD Referring Provider Active Start: December 08, 2024 End: December 10, 2024 Shelia Salmon , MANAGER MAIL Primary Care Provider Active Start: December 08, 2024 End: December 10, 2024 Team Status: Inactive Member Role Status Dates Shelia Salmon , MANAGER MAIL Primary Care Provider Active Start: December 21, 2024 End: December 21, 2024 Dr. Babak Garcia DO Emergency Provider Active Start: December 21, 2024 End: December 21, 2024 Team Status: Active Member Role Status Dates Dr. Aleksandar Jones MD Family Provider Active Shelia Salmon , MANAGER MAIL Primary Care Provider Active Team Status: Inactive Member Role Status Dates Shelia Salmon , MANAGER MAIL Primary Care Provider Active Start: December 21, 2024 End: December 21, 2024 Dr. Babak Garcia DO Attending Provider Active Start: December 21, 2024 End: December 21, 2024 Dr. Babak Garcia DO Emergency Provider Active Start: December 21, 2024 End: December 21, 2024 Team Status: Inactive Member Role Status Dates Dr. Aleksandar Jones MD Family Provider Active Sta rt: January 04, 2025 End: January 04, 2025 Dr. Lorraine Springer MD Attending Provider Active Start: January 04, 2025 End: January 04, 2025 Dr. Lorraine Springer MD Referring Provider Active Start: January 04, 2025 End: January 04, 2025 Shelia Salmon , MANAGER MAIL Primary Care Provider Active Start: January 04, 2025 End: January 04, 2025 Floor Assembler Relationship Specialty Start Date End Date Aleksandar Jones MD [address] [place], [place] [id number] PCP - General Family Medicine 12/26/14 Koby Ramirez V [address] [place] [phone] Internal Medicine 07/22/18 Radha Batista APRN.TANNING SALON ATTENDANT [address] [place] [address] Gravity Meter Operator Family [facility] 09/20/24 Shelia Salmon APRN.TANNING SALON ATTENDANT [address] [place] [address] Gravity Meter Operator Family Medicine 09/20/24 Yolie Mars Other 05/30/14 Long-Term 12/18/17 clark [facility] 10/25/19 Floor Assembler Relationship Specialty Start Date End Date Aleksandar Jones MD [address] [place] [address] PCP - General Family Medicine 12/26/14 Koby Ramirez V [address] [place] [phone] Internal Medicine 07/22/18 Radha Batista APRN.TANNING SALON ATTENDANT [address] [place] [address] Gravity Meter Operator Family Medicine 09/20/24 Shelia Salmon APRN.TANNING SALON ATTENDANT [address] [place] [address] Gravity Meter Operator Family Medicine 09/20/24 Yolie Mars Other 05/30/14 Long-Term 12/18/17 clark marr DME 10/25/19 Floor Assembler Relationship Specialty Start Date End Date Aleksandar Jones MD [address] [place] [address] PCP - General Family Medicine 12/26/14 Koby Ramirez V [address] [place] [phone] Internal Medicine 07/22/18 Radha Batista APRN.TANNING SALON ATTENDANT [address] [place] [address] Gravity Meter Operator Family Medicine 09/20/24 Shelia Salmon APRN.TANNING SALON ATTENDANT [address] [place] [address] Gravity Meter Operator Family Medicine 09/20/24 Yolie Mars Other 05/30/14 Long-Term 12/18/17 clark marr DME 10/25/19 Floor Assembler Relationship Specialty Start Date End Date Aleksandar Jones MD [address] [place], [place] [address] PCP - General Family Medicine 12/26/14 Koby Ramirez V [address] [place] [phone] Internal Medicine 07/22/18 Radha Batista, RUBBER CUTTER AND SHAPE CARVER.TANNING SALON ATTENDANT [address] [place] [address] Gravity Meter Operator Family Medicine 09/20/24 Shelia Salmon APRN.TANNING SALON ATTENDANT [address] [place] [address] Gravity Meter Operator Family Medicine 09/20/24 Yolie Mars Other 05/30/14 Long-Term 12/18/17 corner stone DME 10/25/19 Floor Assembler Relationship Specialty Start Date End Date Aleksandar Jones MD [address] [place] [address] PCP - General Family Medicine 12/26/14 Koby Ramirez V [address] [place] [address] Internal Medicine 07/22/18 Radha Batista, ADIEL.TANNING SALON ATTENDANT [address] [place] [address] Gravity Meter Operator Family Medicine 09/20/24 Shelia Salmon APRN.TANNING SALON ATTENDANT [address] [place] [address] Gravity Meter Operator Family Medicine 09/20/24 Yolie Mars Other 05/30/14 Long-Term 12/18/17 clark marr DME 10/25/19 Floor Assembler Relationship Specialty Start Date End Date Aleksandar Jones MD [address] [place] [address] PCP - General Family Medicine 12/26/14 Koby Ramirez V [address] [place] [phone] Internal Medicine 07/22/18 Radha Batista APRN.TANNING SALON ATTENDANT [address] [facility] [place] [facility] [place] [address] Gravity Meter Operator Family Medicine 09/20/24 Shelia Salmon APRN.TANNING SALON ATTENDANT [address] [place] [address] Gravity Meter Operator Family Medicine 09/20/24 Yolie Mars Other 05/30/14 Long-Term 12/18/17 [facility] 10/25/19 Floor Assembler Relationship Specialty Start Date End Date Aleksandar Jones MD [address] [facility] [address] PCP - General Family Medicine 12/26/14 Koby Ramirez V [address] [place] [phone] Internal Medicine 07/22/18 Radha Batista, RUBBER CUTTER AND SHAPE CARVER.TANNING SALON ATTENDANT [address] [facility] [place] [address] Gravity Meter Operator Family Medicine 09/20/24 Shelia Salmon APRN.TANNING SALON ATTENDANT [address] [place] [address] Gravity Meter Operator Family Medicine 09/20/24 Yolie Mars Other 05/30/14 Long-Term 12/18/17 clark marr DME 10/25/19 Floor Assembler Relationship Specialty Start Date End Date Aleksandar Jones MD [address] [place], [place] [id number] PCP - General Family Medicine 12/26/14 Koby Ramirez V [address] [place] [address] Internal Medicine 07/22/18 Radha Batista APRN.TANNING SALON ATTENDANT [address] [place], [place] [id number] Gravity Meter Operator Family Medicine 09/20/24 Shelia Salmon APRN.TANNING SALON ATTENDANT [address] [place], [place] [id number] Gravity Meter Operator Family Medicine 09/20/24 Yolie Elliottarturo Other 05/30/14 Long-Term 12/18/17 clark marr DME 10/25/19 FOR RECORDS [...] ON THE PRIMARY CLINICAL RECORDS. [facility] [employer] [facility]. provides no warranty or guarantee of the accuracy or completeness of information in this document.
[2025-03-28 09:28] LABS: Hematocrit 38.1 % (37-47); Hemoglobin 12.8 g/dL (12.0-15.0); Mean Corp Hgb Conc 33.6 g/dL (32-36); Mean Corpuscular Hgb 29.3 pg (27.0-32.0); Mean Corpuscular Volume 87.2 fL (81-99); Mean Platelet Vol. 11.2 fl (6.2-12.0); Platelet Count 198 K/mm3 (150-450); RBC Distribution Width CV 13.8 % (11.6-14.6); RBC Distribution Width SD 43.8 fl (35.1-43.9); Red Blood Count 4.37 M/mm3 (4.2-5.4); White Blood Count 8.5 K/mm3 (4.4-11.0)
[2025-03-28 09:48] LABS: Anion Gap 13 (5-15); BUN 14 mg/dL (4-19); BUN/Creat Ratio 29.2 RATIO (10-20); Calcium,Total 9.2 mg/dL (7.6-11.0); Chloride 96 mmol/L (98-108); Creatinine, Serum 0.48 mg/dL (0.70-1.20); EST Glomerular Filtration Rate 108 (>60); Glucose 169 mg/dL (70-99); Potassium 4.5 mmol/L (3.3-5.1); Sodium Level 130 mmol/L (133-145)
[2025-03-29 08:44] LABS: Bacteria 0 SEEN /hpf (None Seen); Mucous, Urine 0 SEEN /hpf (<or=2+); Red Blood Cells-Urine 0 SEEN /hpf (0-5); Squamous Epithelial Cells - UA 0 SEEN /hpf (5-10); White Blood Cells 0 SEEN /hpf (0-5)
[2025-03-29 09:23] LABS: Color, Urine Yellow (Yellow); Glucose, Dipstick 1000 mg/dl (Normal); Ketone-Dipstick Negative (Negative); Leukocyte Esterase-Dipstick Negative /ul (Negative); Nitrite-Dipstick Negative (Negative); Occult Blood-Urine Negative /ul (Negative); Protein-Dipstick 15 mg/dl (Negative); Urine Bilirubin Dipstick Negative (Negative); Urine Clarity Clear (Clear); Urine Urobilinogen Normal (Normal); Urine pH 6.5 (5.0 - 8.0)
[2025-03-29 09:37] LABS: Transitional Epithelial - Ur 0-5 SEEN /hpf (0-5)
[2025-03-29 10:13] LABS: Basophil# 0.07 X10^3/uL; Basophil% 0.8 % (0-1); Differential Indicated SCAN CRITERIA MET; Eosinophil# 0.03 X10^3/uL; Eosinophils% 0.4 % (0-5); Lymphocyte # 1.88 X10^3/ul (0.83-4.51); Lymphocyte % 22.2 % (19-41); Monocyte# 0.67 X10^3/uL; Monocyte% 7.9 % (0-10); Neutrophil # 5.75 X10^3/uL (2.7-7.7); Neutrophil % 68.1 % (47-70)
[2025-03-29 10:14] LABS: Atypical Lymphocyte 2+ %; Differential Comment SCANNED
[2025-03-29 13:05] LABS: Absolute Neutrophil Count 5.8 X10^3/uL (2.0-7.7)
== END ==
LOC: OLS.SWAL 05:00
PROVIDERS: PCP Family Medicine
DX: N39.0 Urinary tract infection, site not specified (principal); I10 Essential (primary) hypertension; E87.1 Hypo-osmolality and hyponatremia; E11.65 Type 2 diabetes mellitus with hyperglycemia; Z79.899 Other long term (current) drug therapy
CPT/HCPCS: 36415; 80048; 81001; 85025; 85027; 87086; 87088

== ENCOUNTER → 2025-04-11 | Outpatient (REF) | payer MEDICARE, MEDICAID, SELFPAY ==
[2025-04-11 11:47] LABS: Anion Gap 12 (5-15); BUN 11 mg/dL (4-19); BUN/Creat Ratio 19.6 RATIO (10-20); Calcium,Total 9.7 mg/dL (7.6-11.0); Chloride 92 mmol/L (98-108); Creatinine, Serum 0.56 mg/dL (0.70-1.20); EST Glomerular Filtration Rate 104 (>60); Glucose 88 mg/dL (70-99); Potassium 4.4 mmol/L (3.3-5.1); Sodium Level 129 mmol/L (133-145)
== END ==
LOC: OLS.SWAL 10:00
PROVIDERS: PCP Family Medicine
DX: I11.0 Hypertensive heart disease with heart failure (principal); I50.42 Chronic combined systolic (congestive) and diastolic (congestive) heart failure; J44.9 Chronic obstructive pulmonary disease, unspecified
CPT/HCPCS: 36415; 80048

== ENCOUNTER → 2025-04-26 | Outpatient (REF) | payer MEDICARE, MEDICAID, SELFPAY ==
[2025-04-26 08:50] LABS: Hematocrit 37.6 % (37-47); Hemoglobin 12.6 g/dL (12.0-15.0); Immature Granulocytes Count 0.060 X10^3/uL (0.0-0.0); Mean Corp Hgb Conc 33.5 g/dL (32-36); Mean Corpuscular Volume 88.1 fL (81-99); Mean Platelet Vol. 10.9 fl (6.2-12.0); NRBC Flagged by Analyzer 0 % (0-5); Platelet Count 193 K/mm3 (150-450); RBC Distribution Width CV 13.9 % (11.6-14.6); RBC Distribution Width SD 44.7 fl (35.1-43.9); Red Blood Count 4.27 M/mm3 (4.2-5.4); White Blood Count 11.7 K/mm3 (4.4-11.0)
== END ==
LOC: OLS.SWAL 07:45
PROVIDERS: PCP Family Medicine
DX: Z79.899 Other long term (current) drug therapy (principal)
CPT/HCPCS: 36415; 85025

== ENCOUNTER 2025-05-06 12:48 | Outpatient (CLI) | payer MEDICARE, MEDICAID, SELFPAY ==
--- NOTE | 2025-05-06 12:52 | CT_ITS ---
PROCEDURE: LOW DOSE CT LUNG SCREENING 05/06/2025 REASON FOR EXAM: NICOTINE DEPENDENCE Former smoker. Patient has smoked 2 packs per day for 20 years. TECHNIQUE: LOW DOSE CT LUNG SCREENING Coronal and Sagittal reconstruction series were provided. One or more dose reduction techniques were used (e.g., Automated exposure control, adjustment of the mA and/or kV according to patient size, use of iterative reconstruction technique). REFERENCE LINK: [facility] Lung-RADS RADIATION DOSE SUMMARY: CTDlvol: 4.02 mGy DLP: 113.3 mGycm COMPARISON: Prior chest radiograph dated December 21, 2024. FINDINGS: PULMONARY NODULES: (Only nodules >3mm are reported) Nodules described below are on series 1 unless otherwise specified. Pulmonary Nodules: No suspicious nodules are seen. Hardware:None Lymph Nodes:Small benign-appearing mediastinal lymph nodes. Heart and Vasculature:The heart is not enlarged. No evidence of pericardial effusion. Coronary Artery Calcifications: Absent Lungs and Airways: Increased markings at the lung bases suggestive of scarring. Scarring and/or atelectasis seen along the posterior aspect of the left upper lobe as well as in the lateral aspect of the left lower lobe. Pleura:Unremarkable Upper Abdomen:Unremarkable Bones:Degenerative changes of the thoracic spine. CT/Low Dose CT Lung Screening IMPRESSION: Findings suggestive of scarring as described. Coronary artery calcification (CAC) is is absent Lung-RADS Category: 2 BENIGN (BASED ON IMAGING FEATURES OR INDOLENT BEHAVIOR). RECOMMEND 12-MONTH SCREENING LDCT. Other Significant Findings: Reading Location: [facility]
== END 2025-05-06 23:59 | disposition home or self-care (01) ==
LOC: CT 12:49
PROVIDERS: PCP Family Medicine; Referring Provider Internal Medicine Pulmonary Disease; Visit Provider Internal Medicine Pulmonary Disease
DX: Z12.2 Encounter for screening for malignant neoplasm of respiratory organs (principal); Z87.891 Personal history of nicotine dependence
CPT/HCPCS: 71271

== ENCOUNTER → 2025-05-24 05:00 | Outpatient (REF) | payer MEDICARE, MEDICAID, SELFPAY ==
--- OUTSIDE RECORDS SUMMARY | 2025-05-24 04:06 | XMS RPT_ITS | CCD ---
Author Organization [facility] Care Team Providers Care Industrial X Ray Operator Name Role Phone KIMBERLY AMAYA Unavailable Unavailable KIMBERLY AMAYA Unavailable Unavailable Aleksandar Jones Unavailable Unavailable KIMBERLY AMAYA Unavailable Unavailable KIMBERLY AMAYA Unavailable Unavailable Aleksandar Jones Unavailable Unavailable Aleksandar Jones MD Primary Care Provider Koby Floyd Unavailable Aleksandar Jones MD Primary Care Provider Koby Floyd Unavailable Aleksandar Jones MD Primary Care Provider Aleksandar Jones MD Primary Care Provider [phone] Koby Floyd Unavailable Dr. Aleksandar Jones Primary Care Provider Dr. Jey Quesada Emergency Provider [phone] Amy Moreno Admit Provider Dr. Amy Moreno Attending Provider Dr. Amy Moreno Other Provider Dr. Hesham Noguera Attending Provider Unavailable Dr. Hesham Noguera Other Provider Unavailable Dr. Aleksandar Jones Primary Care Provider Dr. Jey Quesada Emergency Provider [phone] Amy Moreno Admit Provider Dr. Amy Moreno Attending Provider Dr. Amy Moreno Other Provider Dr. Hesham Noguera Attending Provider Unavailable Dr. Hesham Noguera Other Provider Unavailable Dr. Aleksandar Jones Primary Care Provider Dr. Jey Quesada Emergency Provider Dr. Amy Moreno Admit Provider Dr. Amy Moreno Other Provider Dr. Hesham Noguera Attending Provider Unavailable Aleksandar Jones MD Primary Care Provider [facility], Kaitlyn Unavailable Haagen MANAGER REGIONAL.PBX TEACHER, Radha Unavailable Suppan MANAGER REGIONAL.PBX TEACHER, Shelia A Unavailable [phone] Suppan MANAGER REGIONAL.PBX TEACHER, Shelia A Unavailable [phone] Suppan MANAGER REGIONAL.PBX TEACHER, Shelia A Unavailable [phone] Dr. Aleksandar Jones MD [facility] Provider Dr. Lorraine Springer MD Attending Provider Dr. Lorraine Springer MD Referring Provider Suppan DENTAL MOLD MAKER, Shelia Primary Care Provider Dr. Tae Holland [...] Dr. Lorraine Springer MD Referring Provider Suppan DENTAL MOLD MAKER, Shelia Primary Care Provider Dr. Babak Garcia DO Attending Provider Robert SANDERS, Dr. Escalante Family Provider Racheal SANDERS, Dr. Peters Attending Provider Racheal SANDERS, Dr. Peters [facility]erring [facility], Shelia Primary Care Provider [facility] Attending Provid er Unavailable Robert SANDERS, Dr. Escalante Primary Care Provider Racheal SANDERS, Dr. Peters Attending Provider Racheal SANDERS, Dr. Peters Referring Provider Aleksandar Palomares Attending Provider Unavailable James SANDERS, Dr. Koby Cohen Attending Provider Dr. Koby Ramirez MD, V Referring Provider Robert SANDERS, Dr. Escalante Referring Provider Joselyn Franklin Attending Provider ROBERT, ALEKSANDAR Primary Care Unavailable ROBERT, ALEKSANDAR Primary Care Unavailable HAAGEN, RADHA Referring Unavailable ROBERT, ALEKSANDAR Primary Care Unavailable HAAGEN, RADHA Attending Unavailable ROBERT, ALEKSANDAR Primary Care Unavailable ROBERT, ALEKSANDAR Primary Care Unavailable ROBERT, ALEKSANDAR Attending Unavailable SLEIK, KHALED MELOUD Referring Unavailable HAAGEN, RADHA Attending Unavailable ROBERT, ALEKSANDAR Primary Care Unavailable ROBERT, ALEKSANDAR Primary Care Unavailable HAAGEN, RADHA Referring Unavailable MANCILLA, ZAIRA Referring Unavailable ROBERT, ALEKSANDAR Primary Care Unavailable ROBERT, ALEKSANDAR Primary Care Unavailable ROBERT, ALEKSANDAR Referring Unavailable ROBERT, ALEKSANDAR Primary Care Unavailable ROBERT, ALEKSANDAR Referring Unavailable HAAGEN, RADHA Referring Unavailable ROBERT, ALEKSANDAR Primary Care Unavailable HAAGEN, RADHA Attending Unavailable ROBERT, ALEKSANDAR Primary Care Unavailable HAAGEN, RADHA Attending Unavailable ROBERT, ALEKSANDAR Primary Care Unavailable SLEIK, KHALED MELOUD Referring Unavailable ROBERT, ALEKSANDAR Primary Care Unavailable SLEIK, KHALED MELOUD Referring Unavailable SLEIK, KHALED MELOUD Attending Unavailable ROBERT, ALEKSANDAR Primary Care Unavailable SLEIK, KHALED MELOUD Attending Unavailable SLEIK, KHALED MELOUD Referring Unavailable ROBERT, ALEKSANDAR Primary Care Unavailable ROBERT, ALEKSANDAR Referring Unavailable ROBERT, ALEKSANDAR Primary Care Unavailable ROBERT, ALEKSANDAR Referring Unavailable ROBERT, ALEKSANDAR Primary Care Unavailable HAAGEN, RADHA Referring Unavailable ROBERT, ALEKSANDAR Attending Unavailable ROBERT, ALEKSANDAR Primary Care Unavailable ROBERT, ALEKSANDAR Attending Unavailable ROBERT, ALEKSANDAR Primary Care Unavailable ROBERT, ALEKSANDAR Primary Care Unavailable ROBERT, ALEKSANDAR Referring Unavailable ROBERT, ALEKSANDAR Primary Care Unavailable ROBERT, ALEKSANDAR Referring Unavailable HAAGEN, RADHA Referring Unavailable ROBERT, ALEKSANDAR Primary Care Unavailable HAAGEN, RADHA Attending Unavailable ROBERT, ALEKSANDAR Primary Care Unavailable SHELIA SALMON Attending Unavailable ROBERT, ALEKSANDAR Primary Care Unavailable HAAGEN, RADHA Referring Unavailable ROBERT, ALEKSANDAR Primary Care Unavailable [place], Aleksandar Primary Care Unavailable [place], Aleksandar Referring Unavailable Joselyn Gross Attending Unavailable [place], Aleksandar Primary Care Unavailable [facility] Attending Unavailable [place], Aleksandar Primary Care Unavailable Astreika, Vera Referring Unavailable Astreika, Vera Attending Unavailable [place], Aleksandar Primary Care Unavailable Koby Ramirez V Attending Unavailable Koby Ramirez V Referring Unavailable Astreika, Vera Referring Unavailable Astreika, Vera Attending Unavailable Suppan, Shelia Primary Care Unavailable Astreika, Vera Referring Unavailable Astreika, Vera Attending Unavailable [place] OLS, Aleksandar Primary Care Unavailable [place], Aleksandar Primary Care Unavailable [place] JULIUS, Aleksandar Attending Unavailable Robert, Aleksandar Primary Care Unavailable Robert OLS, Aleksandar Attending Unavailable Astreika, Vera Referring Unavailable Astreika, Vera Attending Unavailable [place] OLS, Aleksandar Primary Care Unavailable Ana Lilia Lebron Attending Unavailable Hesham Amato Consulting Unavailable Hesham Amato Admitting Unavailable Suppan, Shelia Primary Care Unavailable [place], Aleksandar Primary Care Unavailable [facility] Attending Unavailable [place], Aleksandar Primary Care Unavailable Astreika, Vera Referring Unavailable Astreika, Vera Attending Unavailable Astreika, Vera Referring Unavailable Astreika, Vera Attending Unavailable Robert OLS, Aleksandar Primary Care Unavailable Babak Garcia Attending Unavailable Suppan, Shelia Primary Care Unavailable Tae Holland Attending Unavailable Tae Holland Referring Unavailable Suppan, Shelia Primary Care Unavailable Astreika, Vera Referring Unavailable Astreika, Vera Attending Unavailable Suppan, Shelia Primary Care Unavailable Astreika, Vera Referring Unavailable Astreika, Vera Attending Unavailable Suppisaac Shelia Primary Care Unavailable Racheal, Vera Referring Unavailable Racheal Vera Attending Unavailable SuppShelia gray Primary Care Unavailable Racheal, Vera Referring Unavailable Moon Springera Attending Unavailable Shelia Salmon Primary Care Unavailable Ana Lilia Lebron Attending Unavailable Hesham Amato Admitting Unavailable Hesham Amato Consulting Unavailable Shelia Salmon Primary Care Unavailable Ana Lilia Lebron Consulting Unavailable Hesham Amato Attending Unavailable Medications Current Medications Medication Drug [...] tuberculin skin test, unspecified formulation Given 12/03/2019 [id number] 200 actuat albuterol 0.09 mg/actuat metered dose inhaler (20 sources) beta2-Adrenergic Agonist Start: End: take 2 puff(s) by inhalation every four [...] Discontinued 2 NMA INHALATION 4 TIMES DAILY 1 July 29, 2015 2:19pm July 29, [...] Aggregation Inhibitor, Nonsteroidal Anti-inflammatory Drug Start: 07-22-20 End: 06-17-20 take 1 tablet by mouth once daily at mealtime aspirin, enteric coated (ASPIRIN, ENTERIC COATED) 325 mg EC tablet Take 1 tablet by mouth once daily. Take with food. 30 tablet 11 06/17/2024 06/17/2025 Active Comment on above: Take 1 tablet by rosemary th once daily. Take with food. atorvastatin 10 mg oral tablet (20 sources) HMG-CoA Reductase Inhibitor Start: 03-26-20 End: 09-20-20 take 1 tablet by mouth once daily Atorvastatin 10 mg tablet Active 10 mg PO DAILY August 14, 2023 12:00am Cholesterol Start: 05-02-2022 End: 10-04-2022 take 1 tablet by mouth once daily at bedtime for hyperlipidemia atorvastatin (LIPITOR) 10 mg tablet Take 1 tablet by mouth daily at bedtime. For cholesterol. 30 tablet 10/04/2022 Active Comment on above: Take 1 [...] daily to c heck blood sugar. 250.00 cephalexin 500 mg oral capsule (1 source) Cephalosporin Antibacterial Start: End: take 1 capsule by mouth four times daily cephALEXin (KEFLEX) 500 mg capsule Take 1 capsule by mouth four times daily for 5 days. 20 capsule 0 08/08/2022 08/13/2022 Active Comment on above: Take 1 capsule by [facility] four times daily for 5 days. cholecalciferol 0.025 mg oral capsule (20 sources) Vitamin D Start: 018 End: 09-27-2 024 take 1 capsule by mouth once daily Cholecalciferol, Vitamin D3, 25 mcg (1,000 unit) cap Take 1 capsule by mouth once daily. 30 capsule 07/09/2024 Active Comment on above: Take [address] [facility] once daily. clonazePAM 0.5 mg oral tablet (20 sources) Benzodiazepine Start: 022 take 2 tablets by mouth twice daily Clonazepam 0.5 mg Tablet Active 1 mg PO TWICE A DAY June 05, 2022 12:00am schizophrenia Start: 06-05-2022 take 1 mg by mouth [...] 16, 2019 1:47pm November 23, 2019 8:34pm anxiety Start: 07-22-2018 End: 11-15-2019 Clonazepam 0.5 MG [...] mg PO THREE TIMES A DAY 0 0 November 15, 2019 11:07am November 15, 2019 11:14am anxiety Start: 07-22-2018 End: 11-15-2019 take 0.5 mg by mouth three times daily Clonazepam Discontinued 0.5 MG PO THREE TIMES A DAY 0 November 15, 2019 11:07am November 15, 2019 11:14am Start: 10-17-2017 End: 07-22-2018 Clonazepam 0.5 MG tablet Discontinued 0.5 mg PO 1200 as needed for Anxiety 2 0 October 20, 2017 2:34pm July 22, 2018 12:39pm Anxiety Anxiety disorder, unspecified Start: 10-17-2017 End: 07-22-2018 take 1 tablet by mouth at bedtime as needed for anxiety Clonazepam 1 MG tablet Discontinued 1 mg PO AT BEDTIME as needed for Anxiety 2 0 October 20, 2017 2:34pm July 22, 2018 12:39pm Anxiety Anxiety disorder, unspecified End: 06-29-2021 take 1 tablet by mouth [...] Discontinued 150 mg PO WITH DINNER 0 0 November 15, 2019 11:07am July 30, 2021 6:16pm SCHIZOPHRENIA Start: 12-23-2014 End: 07-30-2021 take 1 tablet by mouth at dinner Clozapine 100 MG tablet Discontinued 150 mg PO WITH DINNER 0 November 15, 2019 11:07am July 30, 2021 6:16pm cloZAPine (CLOZA RIL) 100 mg tablet Take [...] sources) Serotonin and Norepinephrine Reuptake Inhibitor Start: End: 023 take 50 mg by mouth once daily Desvenlafaxine Succinate Active 50 MG PO DAILY July 30, 2021 12:00am Comment on above: Take 50 mg by mouth once daily. docusate sodium 100 mg oral capsule (20 sources) Start: 024 End: 025 take 1 capsule by mouth twice daily docusate sodium (COLACE) 100 mg capsule Indications: Acute constipation Take 1 capsule by mouth two times a day. 60 capsule 5 11/25/2024 Active Comment on above: Take [address] [facility] two times a day. doxycycline hyclate 100 mg oral tablet (20 sources) Tetracycline-class Drug Start: take 5 tablets by mouth once daily Doxycycline Hyclate 100 mg tablet Active 100 mg PO TWICE A DAY 14 7 0 November 12, 2024 11:36am Continue doxycycline for a total of 5 more days Start: 11-12-2024 Doxycycline Mo nohydrate 100 mg tablet Active 100 mg PO TWICE A DAY 11 0 November 12, 2024 1:00am 1 twice a day for 11 doses beginning 11/12/2024 then discontinue Start: 08-16-2023 End: 11-12-2024 take 1 tablet by mouth twice daily Doxycycline Hyclate 100 mg tablet Discontinued 100 mg PO TWICE A DAY 14 7 0 August 16, 2023 12:00am November 12, 2024 11:36am Start: 11-15-2019 End: 11-23-2019 take 1 capsule by mouth twice daily Doxycycline Monohydrate 100 MG capsule Discontinued 100 mg PO TWICE A DAY November 16, 2019 1:47pm November 23, 2019 8:33pm antibiotic empagliflozin 10 mg oral tablet (20 sources) [...] .BID with meals June 05, 2022 12:00am anemia Start: 05-08-2022 take 1 tablet by rosemary [...] DAILY July 30, 2021 12:00am Start: 06-25-2019 End: 04-04-2025 take 1 dose by inhalation once fluticasone-vilanterol (BREO ELLIPTA) 100-25 mcg/dose inhaler Indications: Chronic obstructive pulmonary disease, unspecified COPD type (HCC) Inhale 1 Inhalation as instructed once daily. Per Dr. Ramirez 1 Each 5 06/25/2019 04/04/2025 Discontinued (Course of therapy completed) Comment on above: Inhale 1 Inhalation as [...] MG tablet Discontinued 40 mg PO DAILY 30 0 November 15, 2019 1:00am November 16, 2019 [...] three times daily. 180 capsule 1 02/18/2025 Active Start: 09-08-2024 End: 12-02-2024 Gabapentin 100 [...] mg PO DAILY August 14, 2023 12:00am congestion Start: 10-18-2020 End: 11-09-2024 take 2 tablets by mouth twice daily guaiFENesin (MUCINEX) 600 mg 12 hr tablet Take 2 tablets by mouth two times a day. 40 tablet 11/09/2024 Active Comment on above: Take 2 tablets by mo uth twice daily. Take 2 tablets by mo uth two times a day. haloperidol 2 mg oral tablet (20 sources) Typical Antipsychotic Start: 08-14-20 23 haloperidol (HALDOL) 2 mg tablet Take by [...] 02-04-2024 End: 02-03-2025 insulin glargine (BASAGLAR K WIKPEN U-100 INSULIN) 100 unit/mL (3 mL) Indications: diabetes mellitus Inject 58 Units subcutaneously daily at bedtime. 17.4 mL 11 02/04/2024 03/19/2024 Discontinued Start: 08-28-2023 End: 02-04-2024 insulin glargine (LANTUS MIRNA OSTAR U-100 INSULIN) 100 unit/mL (3 mL) Indications: Type 2 diabetes mellitus with diabetic nephropathy, with long-term current use of insulin ([facility]) Give 48 units subq daily at 4 PM or as directed 5 Each 08/28/2023 02/04/2024 Discontinued Start: 08-14-2022 End: 08-28-2023 insulin glargine (LANTUS MIRNA OSTAR U-100 INSULIN) 100 unit/mL (3 mL) Indications: Type 2 diabetes mellitus with diabetic nephropathy, with long-term current use of insulin (HCC) Give 48 units subq daily at 4 PM or as directed 5 Each 08/28/2023 Active Start: 08-14-2022 insulin glargi ne (LANTUS SOLOSTAR U-100 INSULIN) 100 unit/mL (3 mL) Indications: Type 2 diabetes mellitus with diabetic nephropathy, with long-term current use of insulin (HCC) Give 48 units subq daily at 4 PM or as directed 5 Each 08/14/2022 Active Start: 07-30-2021 Insulin Glargi ne (Lantus Solostar U-100 Insulin) 100 unit/mL (3 mL) insulin pen Active 48 U SC DAILY@1600 July 30, 2021 12:00am DM Start: 07-30-2021 Insulin Glargi ne (Lantus Solostar U-100 Insulin) 100 unit/mL (3 mL) insulin pen Active 40 UNIT SC DAILY@1600 July 30, 2021 12:00am Start: 08-02-2020 End: 08-09-2021 insulin glargine (LANTUS MIRNA OSTAR U-100 INSULIN) 100 unit/mL (3 mL) Give 48 units subq daily at 4 PM or as directed 5 Pen 11 08/02/2020 08/09/2021 Discontinued Start: 11-23-2019 End: 07-30-2021 inject 35 [IU] by subcutaneous injection once daily Insulin Glargine 100 UNITS/ML insulin pen Discontinued 35 U subcut DAILY@1600 0 November 23, 2019 1:00am July 30, 2021 4:52pm Start: 11-23-2019 End: 07-30-2021 inject 35 [IU] by subcutaneous injection once daily Insulin Glargine Discontinued 35 UNITS subcut DAILY@1600 November 23, 2019 1:00am July 30, 2021 4:52pm Start: 12-23-2014 End: 11-23-2019 Insulin Glargine (Lantus Mirna ostar U-100 Insulin) 100 UNITS/ML Pen Discontinued 42 U SC DAILY December 23, 2014 12:00am November 23, 2019 8:32pm DIABETES 4pm Comment on above: Give 48 units [...] nephropathy, with long-term current use of insulin ([facility]) Sig: Administer Lispro insulin per scale AC [...] 64u Lancing Device misc (1 source) Start: End: Lancing Device misc Use with blood glucose [...] release oral tablet (20 sources) Biguanide Start: End: take 2 tablets by mouth twice [...] PO AT BEDTIME July 30, 2021 12:00am HTN Start: 05-21-2021 End: 09-12-2021 take 1 tablet [...] a day. TAKE WITH FOOD 60 tablet 5 11/09/2024 Active Start: 03-02-2024 End: 11-09-2024 take 1 tablet by mouth once daily at mealtime nabumetone (RELAFEN) 500 mg tablet Take 1 tablet by mouth once daily. TAKE WITH FOOD 30 tablet 11 10/04/2024 11/09/2024 Discontinued omega-3 fatty acids (FISH [...] Start: 09-11-2022 take [address] [facility] once daily omega-3 fatty acids (FISH OIL [...] on above: Take [address] [facility] once daily. [place]-3 Fatty Acids-Fish Oil (Fish Oil) 1 EACH capsule (6 sources) Start: 10-17-2017 [place]-3 Fatty Acids-Fish Oil (Fish Oil) 1 EACH capsule Active 1 EACH PO DAILY October 17, 2017 3:27pm Start: 10-17-2017 [place]-3 Fatty Acids-Fish Oil (Fish Oil) 1 EACH capsule Active 1 EACH PO DAILY October 17, 2017 1:00am [place]-3 Fatty Acids-Fish Oil 300-1,000 mg capsule (5 sources) Start: 11-09-2024 [place]-3 Fatty Acids-Fish Oil 300-1,000 mg capsule Active NMA November 09, 2024 1:00am omeprazole 20 mg delayed release oral capsule (20 sources) Proton Pump Inhibitor Start: 05-10-2025 take 1 capsule by mouth twice daily Omeprazole 20 mg capsule,delayed release(DR/EC) Active 20 mg PO TWICE A DAY May 10, 2025 1:00pm indigestion Start: 10-31-2019 End: 05-10-2025 take 1 capsule by mouth once daily before breakfast omeprazole (PRILOSEC) 20 mg capsule Indications: GERD without esophagitis , Epigastric pain Take 1 capsule by mouth daily before breakfast. 1/2 hr before meal. 30 capsule 5 10/29/2024 Active Comment on above: Take [address] [facility] daily before breakfast. 1/2 hr before meal. ondansetron 4 mg disintegrating oral tablet (18 sources) Serotonin-3 Receptor Antagonist Start: 12-22-19 take 1 tablet by mouth every six hours as needed for nausea and vomiting Ondansetron 4 mg tablet,disintegrati ng Active 4 mg PO EVERY 6 HOURS as needed for nausea and vomiting December 21, 2024 12:00am Start: 12-13-2023 take 1 tablet by rosemary th every eight hours as needed for nausea Ondansetron 4 mg tablet,disintegrating Active 4 mg PO EVERY 8 HOURS NEEDED as needed for Nausea 10 0 October 14, 2024 1:00am 1.5 ml paliperidone [...] syrg injection 07/01/2022 Active polyethylene glycol 3350 18976 mg powder for oral solution (20 sources) [...] Start: 09-26-2021 End: 04-29-2023 polyethylene glycol 3350 (MD RALAX) 17 gram/dose powder Indications: Chronic constipation Take 17 .5 tsps as needed for constipation. 235 g 6 01/11/2022 04/29/2023 Discontinued (Duplicate Entry) Start: 08-24-2021 End: 02-20-2022 polyethylene glycol 3350 (MD RALAX, GLYCOLAX) 17 gram packet Take 1 Packet by mouth once daily. Dissolve dose in 4 - 8 ounces of liquid and take as directed. 30 Packet 5 08/24/2021 02/20/2022 Active Comment on above: Take 1 Packet by rosemary th once daily. Dissolve dose in 4 - 8 ounces of liquid and take as directed. Take 17 .5 tsps as needed for constipation. polyethylene glycol 3350 497293 mg / potassium chloride 2970 mg / sodium bicarbonate 6740 mg / sodium chloride 5860 mg / sodium sulfate 26985 mg powder for oral solution (8 sources) Osmotic Laxative Start: 12-13-2023 Peg 3350-Electrolytes (Golytely) 236-22.74-6.74 -5.86 gram recon soln Active 240 mL PO EVERY 10 MINUTES NEEDED 4000 0 December 13, 2023 1:00am until fecal effluent is clear Start: 12-13-2023 Peg 3350-Elect rolytes (Golytely) 236-22.74-6.74 -5.86 gram recon soln Active 240 ML PO EVERY 10 MINUTES NEEDED 4000 December 13, 2023 1:00am until fecal effluent is clear polymyxin b 39538 unt/ml / trimethoprim 1 mg/ml ophthalmic solution [...] Take 1 tablet by rosemary once daily. pramipexole dihydrochloride 0.5 mg oral [...] 1 tablet by rosemary th once daily. HOLD 06/29/21 for 4 weeks due to leg aches and cramps predniSONE 50 mg oral tablet (20 sources) Start: 12-21-2024 take 1 tablet by mouth once daily Prednisone 50 mg tablet Active 50 mg PO DAILY 4 4 0 December 21, 2024 12:00am Start: 11-12-2024 Prednisone 20 mg tablet Active 40 mg PO DAILY 14 0 November 12, 2024 1:00am 2 tablets once a day for 7 days then discontinue Start: 08-16-2023 End: 11-12-2024 Prednisone 20 mg tablet Acti ve 20 mg PO TWICE A DAY 14 November 12, 2024 11:36am Continue this prescription [...] 16, 2019 1:47pm November 23, 2019 8:33pm COPD 4 tab PO qd x 3 days, 3 tab PO qd x 3 days, 2 tab PO qd x 3 days, 1 tab PO qd x 3 days Start: 10-14-2017 End: 10-20-2017 take 1 tablet by mouth twice daily Prednisone 20 MG tablet Discontinued 20 mg PO TWICE A DAY 10 October 14, 2017 1:00am October 20, 2017 2:34pm Bronchitis, not specified as acute or chronic Start: 07-29-2015 End: 07-29-2015 Prednisone 20 MG tablet Disc ontinued 40 mg PO DAILY@0800 11 July 29, 2015 12:00am July 29, 2015 [...] MG tablet Discontinued 60 mg PO DAILY 15 September 11, 2014 1:00am September 15, 2014 12:31pm Start: 09-11-2014 End: 09-15-2014 take 60 mg by mouth once daily Prednisone Discontinued 60 MG PO DAILY September 11, 2014 1:00am September 15, 2014 12:31pm Psyllium (Metamucil) Packet (20 sources) Start: 07-30-2021 Psyllium ([place] mucil) Packet Active 1 PACKET PO AT BEDTIME July 30, 2021 6:01pm Start: 07-30-2021 Psyllium ([place] mucil) Packet Active 1 PACKET PO AT BEDTIME July 29, 2021 11:00pm Start: 07-30-2021 Psyllium ([place] mucil) Packet Active 1 PACKET PO AT BEDTIME July 30, 2021 12:00am risperiDONE 1 mg oral tablet (20 sources) Atypical Antipsychotic Start: 11-16-2019 take 2 mg by mouth at bedtime Risperidone Active 2 MG PO AT BEDTIME November 16, 2019 1:47pm Start: 11-15-2019 End: 11-16-2019 take 1 tablet by mouth once daily Risperidone 1 MG tab let Discontinued 1 mg PO DAILY 30 0 November 15, 2019 1:00am November 16, 2019 1:48pm Start: 03-28-2014 End: 11-15-2019 take 2 mg by mouth at bedtime Risperidone (Risperdal) 3 MG tablet Discontinued 2 mg PO AT BEDTIME March 28, 2014 12:00am November 15, 2019 11:15am MENTAL HEALTH Start: 05-03-2011 End: 04-29-2023 inject 50 mg by intramuscular injection every other week Risperidone Microspheres (Risperdal Consta) 50 MG/2 ML Ml Discontinued 50 mg IM Q14D July 25, 2015 12:00am November 23, 2019 8:33pm schizophrenia End: 04-29-2023 risperiDONE orally disintegr ating (RISPERDAL [...] tablet (6 sources) Serotonin Reuptake Inhibitor Start: take 50 mg by mouth at bedtime [...] MG tablet Discontinued 875 mg PO Q12H 14 0 November 02, 2019 1:00am November 09, 2019 [...] MG tablet Discontinued 875 mg PO Q12H 14 0 July 29, 2015 2:19pm July 29, 2015 2:21pm take with food azithromycin 250 mg oral tablet (20 sources) Macrolide Antimicrobial Start: 10-14-2017 End: 10-20-2017 take 1 tablet by mouth at bedtime Azithromycin 250 MG tablet Discontinued 250 mg PO AT BEDTIME October 17, 2017 3:38pm October 20, 2017 2:33pm ANTIBIOTIC benzonatate 100 mg oral capsule (20 sources) Non-narcotic Antitussive Start: 07-25-2018 End: 08-11-2018 take 1 capsule by mouth every four hours as needed for cough Benzonatate 100 MG capsule Discontinued 100 mg PO EVERY 4 HOURS NEEDED as needed for COUGH 20 0 July 25, 2018 12:00am August 11, 2018 11:06am cefuroxime 500 mg oral tablet (2 sources) Cephalosporin Antibacterial Start: 02-15-2025 End: 03-29-2025 take 1 tablet by mouth twice daily cefUROXime (CEFTIN) 500 mg tablet Take 500 mg by mouth two times a day. 02/15/2025 03/29/2025 Discontinued celecoxib 200 mg oral capsule (14 sources) Nonsteroidal Anti-inflammatory Drug Start: 01-13-2024 End: 03-02-2024 take 1 capsule by mouth once daily celecoxib (CELEBREX) 200 mg capsule Indications: Pain in both lower extremities Take 1 capsule by mouth once daily. 30 capsule 3 01/13/2024 03/02/2024 Discontinued Comment on above: Take [address] [facility] once daily. COMPOUNDED PRESCRIPTION (20 sources) Start: [...] Indications: LIDA (obstructive sleep apnea) BIPAP of 09/19 on [address]L oxygen per Dr. Ramirez 0 07/27/2018 Active Comment on above: BIPAP of 09/19 on [address]L oxygen per Dr. Ramirez ferrous [...] tablet Discontinued 325 mg PO DAILY 0 0 November 15, 2019 11:07am November 16, [...] 1 NMA INHALATION TWICE A DAY 1 0 July 29, 2015 2:19pm July 29, 2015 [...] sources) Nonsteroidal Anti-inflammatory Drug Start: 3 End: take 1 tablet by mouth every eight [...] MG tablet Discontinued 750 mg PO DAILY 7 September 11, 2014 1:00am September 15, 2014 12:34pm lubiprostone 0.024 mg oral capsule (20 sources) Chloride Channel Activator Start: 07-22-20 18 End: 04-29-20 23 take 1 capsule by mouth twice daily at mealtime lubiprostone (AMITIZA) 24 mcg capsule Indications: Chronic idiopathic constipation Take 1 capsule by mouth twice daily with meals. 60 capsule 11 03/01/2020 02/08/2021 Discontinued Comment on above: Take [address] [facility] twice daily with meals. magnesium hydroxide 80 [...] Take 1 tablet by rosemary once daily. With food. miconazole nitrate 200 mg vaginal insert (20 sources) Azole Antifungal Start: 3 End: 4 miconazole nitrate (MONISTAT) 200 mg vaginal suppository [...] 1 Applicator vag inally daily at bedtime. Pwnrq-8-CJU-EPA-Fish Oil (FISH OIL) 300-1,000 mg cap (20 sources) End: 03-02-2024 Swjwq-6-PBA-EPA-Fish Oil (FISH OIL) 300-1,000 mg cap Take by mouth. 0 03/02/2024 Discontinued (Duplicate Entry) Rxrdq-2-UAH-EPA- Fish Oil (FISH OIL) 300-1,000 mg cap Take by mouth. 0 Active Comment on above: Take by mouth. oseltamivir 75 mg oral capsule (20 sources) Neuraminidase Inhibitor Start: 11-15-19 End: 11-23-19 take 1 capsule by mouth twice daily Oseltamivir 75 MG capsule Discontinued 75 mg PO TWICE A DAY November 16, 2019 1:47pm November 23, 2019 8:33pm flu perflutren lipid microspheres 1.3 mL in NaCl [...] 31, 2019 1:00am November 23, 2019 8:33pm bowels Start: 10-31-2019 End: 11-23-2019 take 1 mL [...] 18, 2016 1:00am October 20, 2017 2:34pm FIBER SUPPLEMENT Start: 12-18-2016 End: 10-20-2017 Wheat Dextrin (Benefiber Epi ar Sf (Dextrin)) 1 EACH Powd.Pack Discontinued 1 EACH PO AT BEDTIME December 18, 2016 1:00am October 20, 2017 2:34pm Problems Active Problems Problem Classification Problem Date Documented Da te Episodic/Chronic Abdominal pain (8 sources) Epigastric pain; Translations: [Epigastric pain] Episodic [...] 4 03-16-2014 Chronic Coagulation and hemorrhagic disorders (2 sources) Thrombocytopenic disorder; Translations: [Thrombocytopenia, unspecified] 03-05-2024 Chronic Congestive heart failure; nonhypertensive (20 [...] 09-13-2015 Chronic Diseases of white blood cells (11 sources) Leukocytosis; Translations: [Elevated white blood cell count, unspecified] Onset: 5 12-31-2024 Chronic Disorders of lipid metabolism (20 sources) Hyperlipidemia; Translations: [Hyperlipidemia, unspecified] Onset: 2 05-06-2012 Chronic Esophageal disorders (20 sources) Gastroesophageal reflux disease; Translations: [Gastro-esophageal reflux disease without esophagitis] Onset: 5 Chronic Essential hypertension (20 sources) Hypertensive disorder; Translations: [Essential (primary) hypertension] Onset: 3 08-24-2018 Chronic Fever of unknown origin (1 source) Fever; Translations: [Fever, unspecified] 11-09-2024 Episodic Fluid and electrolyte disorders (20 sources) Hypokalemia; Translations: [Hypokalemia] Onset: 4 09-22-2014 Episodic Impulse control disorders, NEC (20 sources) [...] Tinea cruris; Translations: [Tinea cruris] 08-24-2024 Episodic Nonspecific chest pain (1 source) Chest pain; Translations: [Chest pain, unspecified] 04-29-2023 Episodic Nutritional deficiencies (20 sources) Vitamin D deficiency; Translations: [Vitamin D deficiency, unspecified] Onset: 05-03-2011 Chronic Other aftercare (2 sources) Other usp (current) drug therapy; Translations: [Other architectural renderer (current) drug therapy] Onset: Episodic Other circulatory disease (1 source) H/O: heart failure; Translations: [Personal history of other diseases of the circulatory system] 03-29-2025 Episodic Other circulatory disease (1 source) Personal history of other diseases of the circulatory system; Translations: [History of CHF (congestive heart failure)] Onset: Episodic Other connective tissue disease (13 sources) [...] breath] 10-18-2020 Episodic Other lower respiratory disease (3 sources) Cough; Translations: [Cough] 10-18-2020 Episodic Other lower respiratory disease (2 sources) Cough; Translations: [Acute cough] 11-09-2024 Episodic Other lower respiratory disease (7 sources) Respiratory insufficiency; Translations: [Other abnormalities of breathing] 11-20-2024 Episodic Other non-traumatic joint disorders (1 source) Pain in right hip joint; Translations: [Pain in right hip] Episodic Other nutritional; endocrine; and metabolic disorders (20 sources) Obese class II; Translations: [Obesity, unspecified] Onset: 8 03-16-2018 Chronic Other nutritional; endocrine; and metabolic disorders (20 sources) Obese class I; Translations: [Obesity, unspecified] Onset: 2 06-03-2022 Chronic Other nutritional; endocrine; and metabolic disorders (7 sources) Body mass index 30+ - obesity; Translations: [Obesity, unspecified] 11-20-2024 Chronic Other nutritional; endocrine; and metabolic disorders (1 source) Obesity, unspecified; Translations: [Obesity, unspecified] Onset: Chronic Other nutritional; endocrine; and metabolic disorders (1 source) Weight loss; Translations: [Abnormal weight loss] 04-29-2023 Episodic Other screening for suspected conditions (not mental disorders or infectious disease) (20 sources) Liver function tests abnormal; Translations: [Other specified abnormal findings of blood chemistry] Onset: 9 Resolved: 2 02-26-2010 Episodic Other skin disorders (1 source) Skin [...] 11-07-2017 Chronic Residual codes; unclassified (1 source) Obstructive sleep apnea (adult) (pediatric); Translations: [LIDA (obstructive sleep apnea)] Onset: 8 Chronic Residual codes; unclassified (1 source) Swelling - edema - symptom; Translations: [Edema, unspecified] Episodic Residual codes; unclassified (20 sources) Edema; Translations: [Edema, unspecified] 11-16-2019 Episodic Residual codes; unclassified (1 source) Altered mental status; Translations: [Altered mental status, unspecified] 07-19-2021 Episodic Schizophrenia and other psychotic disorders (20 sources) Schizophrenia; Translations: [Schizophrenia, unspecified] Onset: 7 08-26-2017 Chronic Skin and subcutaneous tissue infections [...] (1 source) Unknown / UNK(Unknown) Onset: 8 Unclassified (1 source) Cough, unspecified type; Translations: [Cough, unspecified type] Onset: 5 Unclassified (1 source) Acute cough; Translations: [Acute cough] Onset: 5 Urinary tract infections (1 source) Urinary tract infection, site not specified; Translations: [Urinary tract infection, site not specified] Onset: 5 Episodic Viral infection (7 sources) Disease caused by 2019-nCoV; Translations: [COVID-19] [...] [Other abnormal glucose] Resolved: 04-29-2018 10-08-2021 Episodic Gastritis and duodenitis (20 sources) Gastritis; Translations: [Gastritis, unspecified, without bleeding] Onset: 08-07-2009 08-07-2009 Episodic Immunizations and screening for infectious disease (9 sources) Exposure to Hepatitis B virus; Translations: [Contact with and (suspected) exposure to viral hepatitis] Onset: 07-06-2024 12-30-2024 Episodic Malaise and fatigue (20 sources) Asthenia; Translations: [Other malaise] Onset: 07-06-2024 11-16-2019 Episodic Nausea and vomiting (8 sources) Nausea and vomiting; Translations: [Nausea with vomiting, unspecified] Onset: 01-10-2025 10-22-2024 Episodic Other aftercare (1 source) snf (current) use of insulin; Translations: [Type 2 [...] serum enzymes; Translations: [Elevated liver enzymes] Onset: 12-28-2024 Episodic Other lower respiratory disease (1 source) Shortness of breath; Translations: [Shortness of breath] Onset: 12-30-2024 Episodic Other lower respiratory disease (1 source) Other abnormalities of breathing; Translations: [Other abnormalities of breathing] Onset: 11-17-2024 Episodic Pneumonia (except that caused by tuberculosis [...] Name Value Interpretation Reference Range Facility CNPNon 05-11-2025 CNPN Normal [facility] Gastroenterology Visit Repor ton 05-10-2025 Gastroenterology Visit Report [facility] [address] [place] [address] OFFICE VISIT Date of Service: 05/10/25 MR#: [id number] Acct: [id number] Name: BRENDA LE Rep #: [id number] : 1965 Provider: MAKSIM Razo Age/Sex: 59/F Location: [facility] Status: Signed Intake Vital Signs 12/21/24 08:44 Height 5 ft 1 in Intake Visit Reasons: Constipation Chief Complaint: abdominal symptoms Allergies No Known Allergies Allergy (Verified 11/09/24 18:15) Patient : No Have you fallen in the past year?: Yes Nurse's Note: OV 05/10/25 Pt here to establish care with [facility]. Pt reports nausea and reflux daily, loose stools, constipation, abdominal pain, gas, bloating, and difficulty swallowing. Pt reports gallbladder was removed many years ago. No prior EGD, and prior colonoscopy was "many years ago". Pt take omeprazole, Zofran, prednisone. 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 Smoking Status: Former smoker how long ago did patient quit smoking: Quit 10 years prior to 08/14/23 presentation, 2 ppd since teen until quit. alcohol intake: never substance use type: does not use HPI HPI Chief Complaint: abdominal symptoms Details: BRENDA LE, is a 59 F who presents to the office today for establishment with [facility]. Pt presenting unaccompanied from assisted living facility. She endorses feeling unwell with symptoms including abd pain and nausea. Abdominal pain is constant. She has daily nausea mostly once she starts eating. SHe does not vomit. Her bowels alternate between constipation and diarrhea. She will go 2-3 days without a bm. She denies heartburn. She is on omeprazole 20 mg daily. She has had a colonoscopy in the past but is unsure when this was. She has never had an EGD. ROS Const Constitutional: Positive for fatigue and weight change; No fever(s) ENT ENT: Positive for difficulty swallowing Cardio Cardiology: Positive for leg pain with exertion Gastro GI: Positive for abdominal pain, bloating, change in bowel habits, constipation, difficulty swallowing, excessive flatus, loose stools and nausea/dyspepsia; No belching, change in stool character, coffee ground emesis, cramping, diarrhea, heartburn, feeling full early, incontinent of stools, Vomiting blood/hematemesis, Blood in stool, Black,tarry stools, pain with swallowing, vomiting or other Musc Musculoskeletal: Positive for abnormal gait, joint pain, back pain, muscle weakness, numbness, sciatica, restless legs and leg pain with exertion Skin Skin: No yellowing of the eye or itchy eyes Neuro Neurology: Positive for abnormal gait, numbness, restless legs and tremor(s) Psych Psychiatric: Positive for anxiety, Positive for depression, Positive for paranoia and Positive for inattentiveness Endo Endocrine: Positive for fatigue and weight change Aller/Imm Allergy/Immunologic: No itchy eyes Sharad/Lymp Hematologic/Lymphatic: No easy bleeding or easy bruising Exam Const General: cooperative, healthy appearing and comfortable Orientation: alert [facility] Head: normal to inspection Eyes General: appearance normal, both eyes and all related structures Neck Neck: normal visual inspection Chest Chest palpation inspection: normal inspection of the chest Resp Effort Inspection: normal respiratory effort Cardio Rate: regular rate Rhythm: regular rhythm GI Inspection: normal to inspection Auscultation: normal bowel sounds Palpation: soft and nontender Assessment and Plan Assessment and Plan (1) Constipation: (2) Abdominal pain: Status: Acute Plan: Brenda is a 59 yo female pt who resides in an assisted living facility here today for evaluation of GI symptoms. Pt is unaccompanied today and she may be a poor historian. SHe does not come to the office with any paper work or medication list. Pt endorses nausea, abd pain, constipation and loose stools. She is unsure if this is new for her. She has had a colonoscopy in the past but unclear when this was. I have increas (more content not included)... Normal [facility] Low Dose CT Lung Screeningon 05-06-[address] Lung Screening [facility] Imaging Services [address] [place] [address] Lung Screening MR#: [id number] Acct: [id number] Name: BRENDA LE Rep #: [id number] : 1965 F 59 From: [place] peterson MD PCP: Dr. Aleksandar Jones MD Status: REG CLI Study: Low Dose CT Lung Screening Date of Exam: 05/06 Exam# [id number] Ordering Dr: Koby Ramirez MD PROCEDURE: LOW DOSE CT LUNG SCREENING 05/06/2025 REASON FOR EXAM: NICOTINE DEPENDENCE Former smoker. Patient has smoked 2 packs per day for 20 years. TECHNIQUE: LOW DOSE CT LUNG SCREENING Coronal and Sagittal reconstruction series were provided. One or more dose reduction techniques were used (e.g., Automated exposure control, adjustment of the mA and/or kV according to patient size, use of iterative reconstruction technique). REFERENCE LINK: [employer] Lung-RADS RADIATION DOSE SUMMARY: CTDlvol: 4.02 mGy DLP: 113.3 mGycm COMPARISON: Prior chest radiograph dated December 21, 2024. FINDINGS: PULMONARY NODULES: (Only nodules >3mm are reported) Nodules described below are on series 1 unless otherwise specified. Pulmonary Nodules: No suspicious nodules are seen. Hardware:None Lymph Nodes:Small benign-appearing mediastinal lymph nodes. Heart and Vasculature:The heart is not enlarged. No evidence of pericardial effusion. Coronary Artery Calcifications: Absent Lungs and Airways: Increased markings at the lung bases suggestive of scarring. Scarring and/or atelectasis seen along the posterior aspect of the left upper lobe as well as in the lateral aspect of the left lower lobe. Pleura:Unremarkable Upper Abdomen:Unremarkable Bones:Degenerative changes of the thoracic spine. CT/Low Dose CT Lung Screening IMPRESSION: Findings suggestive of scarring as described. Coronary artery calcification (CAC) is is absent Lung-RADS Category: 2 BENIGN (BASED ON IMAGING FEATURES OR INDOLENT BEHAVIOR). RECOMMEND 12-MONTH SCREENING LDCT. Other Significant Findings: Reading Location: [id number] CC: Dr. Koby Ramirez MD; Dr. Aleksandar Jones MD [employer] Consultant: Signed Normal [facility] Absolute lymphocyte countOrd ered By: [facility] on 04-26-2025 Lymphocytes Auto (Unsp spec) [#/Vol] 1.96 10*3/uL 0.83-4.51 [facility] Absolute neutrophil countOrd ered By: [facility] on 04-26-2025 Neutrophils (Bld) [#/Vol] 8.8 10*3/uL High 2.0-7.7 [facility] Automated lymphocyte count a s percentage of total leukocytesOrdered By: [facility] on 04-26-2025 Lymphocytes/100 WBC Auto (Unsp spec) 16.7 % Low 19-41 [facility] Basophil percentageOrdered B y: [facility] on 04-26-2025 Basophils/100 WBC (Bld) 0.4 % 0-1 [facility] CBC W/Diff, Automatedon 04-12 Absolute Lymph 1.96 X10 3/uL Normal 0.83-4.51 [facility] Comment on above: Performed By: #### L 100.0100 #### [facility] [address] [place], [address] Absolute Neut 8.8 X10 3/uL High 2.0-7.7 [facility] Comment on above: Performed By: #### L 100.0100 #### [facility] [address] [place], [address] Basophils/100 WBC (Bld) 0.4 % Normal 0-1 [facility] Comment on above: Performed By: #### L 100.0100 #### [facility] [address] [place], [address] Eosinophils/100 WBC (Bld) 0.3 % Normal 0-5 [facility] Comment on above: Performed By: #### L 100.0100 #### [facility] [address] [place], [address] Erythrocyte distribution width (RBC) [Ratio] 13.9 % Normal 11.6-14.6 [facility] Comment on above: Performed By: #### L 100.0100 #### [facility] [address] [place], [address] Hematocrit (Bld) [Volume fraction] 37.6 % Normal 37-47 [facility] Comment on above: Performed By: #### L 100.0100 #### [facility] [address] [place], [address] Hemoglobin (Bld) [Mass/Vol] 12.6 g/dL Normal 12.0-15.0 [facility] Comment on above: Performed By: #### L 100.0100 #### [facility] [address] [place], [address] IG% 0.500 Normal 0.0-0.9 [facility] Comment on above: Result Comment: IG% - Immature Granulocytes (promyelocytes, myelocytes and metamyelocytes) > 1% indicates that a LEFT SHIFT is Present. Performed By: #### L 100.0100 #### [facility] [address] [place], [address] Lymphocytes/100 WBC (Bld) 16.7 % Low 19-41 [facility] Comment on above: Performed By: #### L 100.0100 #### [facility] [address] [place], [address] MCH (RBC) [Entitic mass] 29.5 pg Normal 27.0-32.0 [facility] Comment on above: Performed By: #### L 100.0100 #### [facility] [address] [place], [address] MCHC (RBC) [Mass/Vol] 33.5 g/dL Normal 32-36 [facility] Comment on above: Performed By: #### L 100.0100 #### [facility] [address] [place], [address] MCV (RBC) [Entitic vol] 88.1 fL Normal 81-99 [facility] Comment on above: Performed By: #### L 100.0100 #### [facility] [address] [place], [address] Monocytes/100 WBC (Bld) 7.3 % Normal 0-10 [facility] Comment on above: Performed By: #### L 100.0100 #### [facility] [address] [place], [address] Neutrophils/100 WBC (Bld) 74.8 % High 47-70 [facility] Comment on above: Performed By: #### L 100.0100 #### [facility] [address] [place], [address] Nucleated RBC (Bld) [#/Vol] 0 10*3/uL Normal 0-5 [facility] Comment on above: Performed By: #### L 100.0100 #### [facility] [address] [place], [address] Platelet mean volume (Bld) [Entitic vol] 10.9 fL Normal 6.2-12.0 [facility] Comment on above: Performed By: #### L 100.0100 #### [facility] [address] [place], [address] Platelets (Bld) [#/Vol] 193 10*3/uL Normal 150-450 [facility] Comment on above: Performed By: #### L 100.0100 #### [facility] [address] [place], [address] RBC (Bld) [#/Vol] 4.27 10*6/uL Normal 4.2-5.4 [facility] Comment on above: Performed By: #### L 100.0100 #### [facility] [address] [place], [address] RDW SD 44.7 fl High 35.1-43.9 [facility] Comment on above: Performed By: #### L 100.0100 #### [facility] [address] [place], [address] WBC (Bld) [#/Vol] 11.7 10*3/uL High 4.4-11.0 [facility] Comment on above: Performed By: #### L 100.0100 #### [facility] [address] [place], [address] Eosinophil percentageOrdered By: [facility] on 04-26-2025 Eosinophils/100 WBC (Bld) 0.3 % 0-5 [facility] Erythrocyte distribution wid th ratioOrdered By: [facility] on 04-26-2025 Erythrocyte distribution width (RBC) [Ratio] 13.9 % 11.6-14.6 [facility] Erythrocyte distribution wid th standard deviationOrdered By: [facility] on 04-26-2025 Erythrocyte distribution width (RBC) [Ratio] 44.7 fl High 35.1-43.9 [facility] Hematocrit Auto (Bld) [Volum e fraction]Ordered By: [facility] on 04-26-2025 Hematocrit (Bld) [Volume fraction] 37.6 % 37-47 [facility] Hemoglobin measurementOrdere d By: [facility] on 04-26-2025 Hemoglobin (Bld) [Mass/Vol] 12.6 g/dL 12.0-15.0 [facility] Immature granulocytes/100 WB C Auto (Bld)Ordered By: [facility] on 04-26-2025 Immature granulocytes/100 WBC (Bld) 0.500 % 0.0-0.9 [facility] Comment on above: IG% - Immature Granu locytes (promyelocytes, myelocytes and metamyelocytes) > 1% indicates that a LEFT SHIFT is Present. MCV (mean corpuscular volume ) determinationOrdered By: [facility] on 04-26-2025 MCV (RBC) [Entitic vol] 88.1 fL 81-99 [facility] Mean corpuscular hemoglobin (MCH) determinationOrdered By: [facility] on 04-26-2025 MCH (RBC) [Entitic mass] 29.5 pg 27.0-32.0 [facility] Mean corpuscular hemoglobin concentration (MCHC) determinationOrdered By: [facility] on 04-26-2025 MCHC (RBC) [Mass/Vol] 33.5 g/dL 32-36 [facility] Mean platelet volume determi nationOrdered By: [facility] on 04-26-2025 Platelet mean volume (Bld) [Entitic vol] 10.9 fL 6.2-12.0 [facility] Monocyte percentageOrdered B y: [facility] on 04-26-2025 Monocytes/100 WBC (Bld) 7.3 % 0-10 [facility] Neutrophil percentageOrdered By: [facility] on 04-26-2025 Neutrophils/100 WBC (Bld) 74.8 % High 47-70 [facility] Nucleated red blood cell per centageOrdered By: [facility] on 04-26-2025 Nucleated RBC/100 WBC (Bld) [Ratio] 0 % 0-5 [facility] Platelet countOrdered By: [facility] on 04-26-2025 Platelets (Bld) [#/Vol] 193 10*3/uL 150-450 [facility] RBC Auto (Bld) [#/Vol]Ordere d By: [facility] on 04-26-2025 RBC (Bld) [#/Vol] 4.27 10*6/uL 4.2-5.4 [facility] White blood cell (WBC) count Ordered By: [facility] on 04-26-2025 WBC (Bld) [#/Vol] 11.7 10*3/uL High 4.4-11.0 [facility] Anion gap in Serum or Plasma Ordered By: Aleksandar Jones on 04-11-2025 Anion gap [Moles/Vol] 12 mmol/L -15 [facility] BUN/creatinine ratioOrdered By: Aleksandar Jones on 04-11-2025 Urea nitrogen/Creatinine [Mass ratio] 19.6 mg/mg 10-20 [facility] Basic Metabolic Profile (BMP )on 04-11-2025 BUN/CRE 19.6 RATIO Normal - [facility] Comment on above: Order Comment: 135 Performed By: #### L 100.0100 #### [facility] [address] [place], [address] Calcium [Mass/Vol] 9.7 mg/dL Normal 7.6-11.0 [facility] Comment on above: Order Comment: 135 Performed By: #### L 100.0100 #### [facility] [address] [place], [address] Chloride [Moles/Vol] 92 mmol/L Low 98-108 [facility] Comment on above: Order Comment: 135 Performed By: #### L 100.0100 #### [facility] [address] [place], [address] CO2 [Moles/Vol] 25.0 mmol/L Normal 21.0-32.0 [facility] Comment on above: Order Comment: 135 Performed By: #### L 100.0100 #### [facility] [address] [place], [address] Creatinine [Mass/Vol] 0.56 mg/dL Low 0.70-1.20 [facility] Comment on above: Order Comment: 135 Performed By: #### L 100.0100 #### [facility] [address] [place], [address] GAP 12 Normal 5-15 [facility] Comment on above: Order Comment: 135 Performed By: #### L 100.0100 #### [facility] [address] [place], [address] GFR/1.73 sq M.predicted among non-blacks MDRD (S/P/Bld) [Vol rate/Area] 104 mL/min/{1.73_m2} Normal >60 [facility] Comment on above: Order Comment: 135 Result Comment: mL/m in/1.73m2 CKD-EPI Creatinine Equation (2020) Performed By: #### L 100.0100 #### [facility] [address] [place], [address] Glucose [Mass/Vol] 88 mg/dL Normal 70-99 [facility] Comment on above: Order Comment: 135 Performed By: #### L 100.0100 #### [facility] [address] [place], [address] Potassium [Moles/Vol] 4.4 mmol/L Normal 3.3-5.1 [facility] Comment on above: Order Comment: 135 Performed By: #### L 100.0100 #### [facility] [address] [place], [address] Sodium [Moles/Vol] 129 mmol/L Low 133-145 [facility] Comment on above: Order Comment: 135 Performed By: #### L 100.0100 #### [facility] [address] [place], [address] Urea nitrogen [Mass/Vol] 11 mg/dL Normal 4-19 [facility] Comment on above: Order Comment: 135 Performed By: #### L 100.0100 #### [facility] [address] [place], [address] Carbon dioxide, total [Moles /volume] in Central venous bloodOrdered By: Aleksandra Jones on 04-11-2025 CO2 [Moles/Vol] 25.0 mmol/L 21.0-32.0 [facility] Chloride assayOrdered By: Julio Cesar Jones on 04-11-2025 Chloride [Moles/Vol] 92 mmol/L Low 98-108 [facility] Glomerular filtration rate ( GFR) estimation/1.73 sq m using serum, plasma, or whole bOrdered By: Aleksandar Jones on 04-11-2025 GFR/1.73 sq M.predicted among non-blacks MDRD (S/P/Bld) [Vol rate/Area] 104 mL/min/{1.73_m2} >60 [facility] Comment on above: mL/min/1.73m2 CKD-EP I Creatinine Equation (2020) Potassium measurement (mass/ volume)Ordered By: Aleksandar Jones on 04-11-2025 Potassium (Unsp spec) [Mass/Vol] 4.4 mmol/L 3.3-5.1 [facility] Serum creatinine measurement (mass/volume)Ordered By: Aleksandar Jones on 04-11-2025 Creatinine [Mass/Vol] 0.56 mg/dL Low 0.70-1.20 [facility] Serum glucose measurement (m ass/volume)Ordered By: Aleksandar Jones on 04-11-2025 Glucose [Mass/Vol] 88 mg/dL 70-99 [facility] Serum or plasma calcium lawrence urement (mass/volume)Ordered By: Aleksandar Jones on 04-11-2025 Calcium [Mass/Vol] 9.7 mg/dL 7.6-11.0 [facility] Serum or plasma urea nitroge n measurement (mass/volume)Ordered By: Aleksandar Jones on 04-11-2025 Urea nitrogen [Mass/Vol] 11 mg/dL 4-19 [facility] Sodium levelOrdered By: Jeancarlos devinem Robert on 04-11-2025 Sodium [Moles/Vol] 129 mmol/L Low 133-145 [facility] CNOVon 04-04-2025 CNOV Normal [facility] Urine Cultureon 03-31-2025 [facility] Mixed Gram Positive Organisms Baskin Count 11,000-25,000 MIXC Mixed contaminants. Submit a new specimen if indicated. Normal [facility] Comment on above: Performed By: #### L 100.0100 #### [facility] [address] [place], [address] Bilirub Conj SerPl-mCncon Bilirubin.conjugated [Mass/Vol] 0.2 mg/dL Normal <0.3 [facility] Comment on above: Order Comment: Speci men Type: BLOOD SPECIMENOrdering Facility: [facility] Address: [address] [place] [address] Performed By: #### 2 4323-8, 61421-7, 87647-2 ####[facility] LABIA [id number] [place] [address] [place] CBC W/Diff, Automatedon 06- Absolute Neut 5.8 X10 3/uL Normal 2.0-7.7 [facility] Comment on above: Order Comment: 135 Performed By: #### L 501.080 #### [facility] [address], [address] CNOVon 03-29-2025 CNOV Normal [facility] Comprehensive metabolic 2000 panelon 03-29-2025 Albumin [Mass/Vol] 4.5 g/dL Normal 3.9-4.9 [facility] Comment on above: Order Comment: Speci men Type: BLOOD SPECIMENOrdering Facility: [facility] Address: [address] [place] [address] Performed By: #### 2 4323-8, 74450-5, 14486-6 ####[facility] LABIA [id number] [place] [address] [place] ALP [Catalytic activity/Vol] 119 U/L Normal 34-123 [facility] Comment on above: Order Comment: Speci men Type: BLOOD SPECIMENOrdering Facility: [facility] Address: [address] [place] [address] Performed By: #### 2 4323-8, 76542-5, 83717-4 ####[facility] LABIA [id number] [place] [id number] [place] ALT [Catalytic activity/Vol] 35 U/L Normal 7-38 [facility] Comment on above: Order Comment: Speci men Type: BLOOD SPECIMENOrdering Facility: [facility] Address: [address] [place] [address] Performed By: #### 2 4323-8, 43919-6, 25345-7 ####[facility] LABCLIA [id number] [address] [address] [place] Anion gap [Moles/Vol] 13 mmol/L Normal 8-15 [facility] Comment on above: Order Comment: Speci men Type: BLOOD SPECIMENOrdering Facility: [facility] Address: [address] [place] [address] Performed By: #### 2 4323-8, 29738-6, 26547-2 ####[facility] LABCLIA [id number] [place] [id number] [place] AST [Catalytic activity/Vol] 21 U/L Normal 13-35 [facility] Comment on above: Order Comment: Speci men Type: BLOOD SPECIMENOrdering Facility: [facility] Address: [address] [place] [address] Performed By: #### 2 4323-8, 41510-8, 92610-8 ####[facility] LABCLIA [id number] [place] [id number] [place] Bilirubin [Mass/Vol] 0.4 mg/dL Normal 0.2-1.3 [facility] Comment on above: Order Comment: Speci men Type: BLOOD SPECIMENOrdering Facility: [facility] Address: [address] [place] [address] Performed By: #### 2 4323-8, 55634-8, 21807-2 ####[facility] LABCLIA [id number] [place] [id number] [place] Calcium [Mass/Vol] 9.6 mg/dL Normal 8.5-10.2 [facility] Comment on above: Order Comment: Speci men Type: BLOOD SPECIMENOrdering Facility: [facility] Address: [address] [place], [place] [address] Performed By: #### 2 4323-8, 01273-2, 08505-0 ####[facility] LABCLIA [id number] [place] [address] [place] Chloride [Moles/Vol] 95 mmol/L Low 98-107 [facility] Comment on above: Order Comment: Speci men Type: BLOOD SPECIMENOrdering Facility: [facility] Address: [address] [place] [address] Performed By: #### 2 4323-8, 39924-2, 04078-5 ####[facility] LABIA [id number] [place] [id number] [place] CO2 [Moles/Vol] 23 mmol/L Normal 22-30 [facility] Comment on above: Order Comment: Speci men Type: BLOOD SPECIMENOrdering Facility: [facility] Address: [address] [place] [address] Performed By: #### 2 4323-8, 56820-5, 60883-2 ####[facility] LABIA [id number] [place] [address] [place] Creatinine [Mass/Vol] 0.51 mg/dL Low 0.58-0.96 [facility] Comment on above: Order Comment: Speci men Type: BLOOD SPECIMENOrdering Facility: [facility] Address: [address] [place] [address] Performed By: #### 2 4323-8, 59902-7, 81505-2 ####[facility] LABIA [id number] [place] [address] [place] Creatinine and Glomerular filtration rate.predicted panel (S/P/Bld) 106 mL/min/1.73m??? Normal >=60 [facility] Comment on above: Order Comment: Speci men Type: BLOOD SPECIMENOrdering Facility: [facility] Address: [address] [place] [address] Result Comment: Gia mated Glomerular Filtration Rate [...] reflect actual GFR. Performed By: #### 2 4323-8, 00833-2, 69263-2 ####[facility] LABCLIA [id number] [facility] [id number] [place] [address] [place] Glucose [Mass/Vol] 182 mg/dL High 74-99 [facility] Comment on above: Order Comment: Speci carlos Type: BLOOD SPECIMENOrdering Facility: [facility] Address: [address] [place] [address] Result Comment: The [place] Diabetes Association (ADA) provides guidance for cutoff [...] Standards of Medical Care in Diabetes 2016, [place] Diabetes Association. Diabetes Care. 2016.39(Suppl 1). Performed By: #### 2 4323-8, 49225-1, 12492-2 ####[facility] LABCLIA [id number] [facility] [address] [address] [place] Potassium [Moles/Vol] 4.4 mmol/L Normal 3.7-5.1 [facility] Comment on above: Order Comment: Rand gonzalez Type: BLOOD SPECIMENOrdering Facility: [facility] Address: [address] [place] [address] Performed By: #### 2 4323-8, 11527-4, 86908-6 ####[facility] LABCLIA [id number] [facility]UN[facility] [id number] [place] [address] [place] Protein [Mass/Vol] 7.8 g/dL Normal 6.3-8.0 [facility] Comment on above: Order Comment: Speci men Type: BLOOD SPECIMENOrdering Facility: [facility] Address: [address] [place] [address] Performed By: #### 2 4323-8, 28423-5, 65110-0 ####[facility] LABCLIA [id number] [place] [address] [place] Sodium [Moles/Vol] 131 mmol/L Low 136-144 [facility] Comment on above: Order Comment: Speci men Type: BLOOD SPECIMENOrdering Facility: [facility] Address: [address] [place] [address] Performed By: #### 2 4323-8, 04031-8, 20045-9 ####[facility] LABCLIA [id number] [place] [address] [place] Urea nitrogen [Mass/Vol] 10 mg/dL Normal 7-21 [facility] Comment on above: Order Comment: Speci men Type: BLOOD SPECIMENOrdering Facility: [facility] Address: [address] [place] [address] Performed By: #### 2 4323-8, 84393-4, 04312-0 ####[facility] LABIA [id number] [place] [address] [place] HBV DNA Qn (S)on 03-29-2025 HBV DNA LUIS M+probe Ql Not detected Normal Not detected [facility] Comment on above: Order Comment: Speci men Type: BLOOD SPECIMENOrdering Facility: [facility] Address: [address] [place] [address] Performed By: #### 1 1258-1 ####[facility] LABCLIA [id number] [place] [id number] [place] HBV core Ab Ser Qlon 025 HBV core Ab Ql (S) Negative Normal Negative [facility] Comment on above: Order Comment: Speci men Type: BLOOD SPECIMENOrdering Facility: [facility] Address: [address] [place] [address] Result Comment: No e vidence of current or past infection with Hepatitis B virus. Should recent infection be suspected, repeat testing may be considered 3-4 weeks after this draw. Performed By: #### 2 2322-2, 5195-3, 47945-7, 64778-1 ####[facility] LABCLIA [id number] [place] [address] [place] HBV core IgM Ser Qlon 2024 HBV core IgM Ql (S) Positive Abnormal Negative [facility] Comment on above: Order Comment: Rand gonzalez Type: BLOOD SPECIMENOrdering Facility: [facility] Address: [address] [place] [address] Result Comment: The result suggests recent acute infection with Hepatitis B virus. Non-specific reactivity is not uncommon with this test. HBV core IgM antibody may also remain elevated for extended periods after an acute bout of infection. Clinical correlation required. Performed By: #### 2 2322-2, 5195-3, 15024-6, 11497-3 ####[facility] LABCLIA [id number] [address] [place] HBV surface Ab Ql (S)on 03-13 HBV surface Ab Qn (S) <8.[address] [facility] Comment on above: Order Comment: Rand gonzalez Type: BLOOD SPECIMENOrdering Facility: [facility] Address: [address] [place] [address] Result Comment: <8 m IU/mL: No serological evidence of immunity to Hepatitis B Virus.>/= 8 to <12 mIU/mL: No serological evidence of immunity to Hepatitis B Virus.>/= 12 mIU/mL: Consistent with serological evidence of immunity to Hepatitis B Virus. Performed By: #### 2 2322-2, 5195-3, 42833-9, 53317-1 ####[facility] LABCLIA [id number] [place] HBV surface Ab Ser Qlon 03-13 HBV surface Ab Ql (S) Negative Normal [facility] Comment on above: Order Comment: Speci men Type: BLOOD SPECIMENOrdering Facility: [facility] Address: [address] [place] [address] Result Comment: No s erological evidence of immunity to Hepatitis B Virus. Performed By: #### 2 2322-2, 5195-3, 59444-1, 47661-1 ####[facility] LABCLIA [id number] [place] [address] [place] HBV surface Ag Ser Qlon 03-13 HBV surface Ag Ql (S) Negative Normal Negative [facility] Comment on above: Order Comment: Speci men Type: BLOOD SPECIMENOrdering Facility: [facility] Address: [address] [place] [address] Performed By: #### 2 2322-2, 5195-3, 51481-4, 21796-4 ####[facility] LABCLIA [id number] [place] [address] [place] HbA1c (Bld)on 03-29-2025 Average glucose Estimated from glycated hemoglobin (Bld) [Mass/Vol] 140 mg/dL [facility] Comment on above: eAG: (Estimated aver age glucose) is a calculated value from HgbA1c and is logistics service representative of the average blood glucose level in the last 2-3 month period. HbA1c (Bld) [Mass fraction] 6.5 % High 4.3 - 5.6 % [facility] Comment on above: [place] Diabetes As sociation guidelines indicate that patients with HgbA1c in the range 5.7-6.4% are at increased risk for development of diabetes, and intervention by lifestyle modification may be beneficial. HgbA1c greater or equal to 6.5% is considered diagnostic of diabetes. Interpretation and review of laboratory results Abnormal [facility] Average glucose Estimated from glycated hemoglobin (Bld) [Mass/Vol] 140 mg/dL Normal [facility] Comment on above: Order Comment: Speci men Type: BLOOD SPECIMENOrdering Facility: [facility] Address: [address] [place] [address] Result Comment: eAG: (Estimated average glucose) is a calculated value from HgbA1c and is logistics service representative of the average blood glucose level in the last 2-3 month period. Performed By: #### 5 5454-3 ####[facility] LABCLIA [id number] [place] [address] [place] HbA1c (Bld) [Mass fraction] 6.5 % High 4.3-5.6 [facility] Comment on above: Order Comment: Rand gonzalez Type: BLOOD SPECIMENOrdering Facility: [facility] Address: [address] [place] [address] Result Comment: [place] Diabetes Association guidelines indicate that patients with HgbA1c in the range 5.7-6.4% are at increased risk for development of diabetes, and intervention by lifestyle modification may be beneficial. HgbA1c greater or equal to 6.5% is considered diagnostic of diabetes. Performed By: #### 5 5454-3 ####[facility] LABCLIA [id number] [place] [address] [place] NT PRO BNPon 03-29-2025 Natriuretic peptide.B prohormone N-Terminal [Mass/Vol] pg/mL NINF - 125 pg/mL [facility] NT-proBNP SerPl-ncon 03-29 Natriuretic peptide.B prohormone N-Terminal [Mass/Vol] <36 Normal <125 [facility] Comment on above: Order Comment: Rand gonzalez Type: BLOOD SPECIMENOrdering Facility: [facility] Address: [address] [place] [address] Performed By: #### 2 4323-8, 85836-8, 65389-3 ####[facility] LABCLIA [id number] [facility] [place] [id number] [place] Natriuretic peptide.B prohor shade N-Terminal [Mass/Vol]on 03-29-2025 Interpretation and review of laboratory results Normal [facility] Urinalysis, Completeon 03-29 EPI,TRANSITION 0-5 SEEN Normal 0-5 [facility] Comment on above: Order Comment: CLEAN CATCH Performed By: #### L 501.080 #### [facility] [address] [place], [address] BACTERIA 0 SEEN Normal None Seen [facility] Comment on above: Order Comment: CLEAN CATCH Performed By: #### L 501.080 #### [facility] [address] [place], [address] EPI,SQUAMOUS 0 SEEN Normal 5-10 [facility] Comment on above: Order Comment: CLEAN CATCH Performed By: #### L 501.080 #### [facility] [address] [place], [address] Mucus Ql (Urine sed) 0 SEEN Normal [facility] Comment on above: Order Comment: CLEAN CATCH Performed By: #### L 501.080 #### [facility] [address] [place], [address] RBC 0 SEEN Normal 0-5 [facility] Comment on above: Order Comment: CLEAN CATCH Performed By: #### L 501.080 #### [facility] [address] [place], [address] WBC 0 SEEN Normal 0-5 [facility] Comment on above: Order Comment: CLEAN CATCH Performed By: #### L 501.080 #### [facility] [address] [place], [address] XR CHEST 2V FRONTAL/LATon XR CHEST 2V FRONTAL/LAT Normal C [facility] XR Chest PA and Lateralon IMPRESSION: No developing abnormality or acute process [employer] Consultant: MILDRED Transcribe Date/Time: Mar 29 2025 2:38P Dictated by : EUSEBIA MARIN MD This examination was interpreted and the report reviewed and electronically signed by: EUSEBIA MARIN MD on Mar 29 2025 2:39PM [facility] DIVISION OF RADIOLOGY * * *Final Report* * * DATE OF EXAM: Mar 29 2025 10:14AM WOX [id number] - XR CHEST 2V FRONTAL/LAT / PROCEDURE REASON: Cough, unspecified type * * * * Physician Interpretation * * * * EXAMINATION: CHEST RADIOGRAPH (2 VIEW FRONTAL & LATERAL) CLINICAL HISTORY: Cough, unspecified type MQ: XC2_6 EXAM DATE/TIME: 03/29/2025 10:14 AM COMPARISON: 12/07/2024 RESULT: Lines, tubes, and devices: None. Lungs and pleura: Stable linear atelectasis or fibrosis at the left base. No consolidation. No lung mass. No pleural effusion. No pneumothorax. Cardiomediastinal silhouette: Normal cardiomediastinal silhouette. Bones and soft tissues: Unremarkable. DIVISION OF RADIOLOGY Provider, Carlos [facility] - 03/29/2025 * * *Final Report* * * DATE OF EXAM: Mar 29 2025 10:14AM WOX [id number] - XR CHEST 2V FRONTAL/LAT / PROCEDURE REASON: Cough, unspecified type * * * * Physician Interpretation * * * * EXAMINATION: CHEST RADIOGRAPH (2 VIEW FRONTAL & LATERAL) CLINICAL HISTORY: Cough, unspecified type MQ: XC2_6 EXAM DATE/TIME: 03/29/2025 10:14 AM COMPARISON: 12/07/2024 RESULT: Lines, tubes, and devices: None. Lungs and pleura: Stable linear atelectasis or fibrosis at the left base. No consolidation. No lung mass. No pleural effusion. No pneumothorax. Cardiomediastinal silhouette: Normal cardiomediastinal silhouette. Bones and soft tissues: Unremarkable. IMPRESSION IMPRESSION: No developing abnormality or acute process [employer] Consultant: PSCB Transcribe Date/Time: Mar 29 2025 2:38P Dictated by : EUSEBIA MARIN MD This examination was interpreted and the report reviewed and electronically signed by: EUSEBIA MARIN MD on Mar 29 2025 2:39PM [facility] Radiology Study observation (narrative) Pola Araya XR Chest PA and LateralOrder ed By: [facility] Provider on 03-29-2025 [facility] Absolute neutrophil countOrd ered By: Aleksandar Jones on 03-28-2025 Neutrophils (Bld) [#/Vol] 5.8 10*3/uL 2.0-7.7 [facility] Anion gap in Serum or Plasma Ordered By: Aleksandar Jones on 03-28-2025 Anion gap [Moles/Vol] 13 mmol/L - [facility] BUN/creatinine ratioOrdered By: Aleksandar Jones on 03-28-2025 Urea nitrogen/Creatinine [Mass ratio] 29.2 mg/mg High 08-01 [facility] Basic Metabolic Profile (BMP )on 03-28-2025 BUN/CRE 29.2 RATIO High 08-01 [facility] Comment on above: Order Comment: 135 Performed By: #### L 501.080 #### [facility] [address] [place], [address] Calcium [Mass/Vol] 9.2 mg/dL Normal 7.6-11.0 [facility] Comment on above: Order Comment: 135 Performed By: #### L 501.080 #### [facility] [address] [place], [address] Chloride [Moles/Vol] 96 mmol/L Low 98-108 [facility] Comment on above: Order Comment: 135 Performed By: #### L 501.080 #### [facility] [address] [place], [address] CO2 [Moles/Vol] 21.0 mmol/L Normal 21.0-32.0 [facility] Comment on above: Order Comment: 135 Performed By: #### L 501.080 #### [facility] [address] [place], [address] Creatinine [Mass/Vol] 0.48 mg/dL Low 0.70-1.20 [facility] Comment on above: Order Comment: 135 Performed By: #### L 501.080 #### [facility] [address] [place], [address] GAP 13 Normal - [facility] Comment on above: Order Comment: 135 Performed By: #### L 501.080 #### [facility] [address] [place], [address] GFR/1.73 sq M.predicted among non-blacks MDRD (S/P/Bld) [Vol rate/Area] 108 mL/min/{1.73_m2} Normal >60 [facility] Comment on above: Order Comment: 135 Result Comment: mL/m in/1.73m2 CKD-EPI Creatinine Equation (2020) Performed By: #### L 501.080 #### [facility] [address] [place], [address] Glucose [Mass/Vol] 169 mg/dL High 70-99 [facility] Comment on above: Order Comment: 135 Performed By: #### L 501.080 #### [facility] [address] [place], [address] Potassium [Moles/Vol] 4.5 mmol/L Normal 3.3-5.1 [facility] Comment on above: Order Comment: 135 Performed By: #### L 501.080 #### [facility] [address] [place], [address] Sodium [Moles/Vol] 130 mmol/L Low 133-145 [facility] Comment on above: Order Comment: 135 Performed By: #### L 501.080 #### [facility] [address] [place], [address] Urea nitrogen [Mass/Vol] 14 mg/dL Normal 4-19 [facility] Comment on above: Order Comment: 135 Performed By: #### L 501.080 #### [facility] [address] [place], [address] Basophil percentageOrdered B y: Aleksandar Jones on 03-28-2025 Basophils/100 WBC (Bld) 0.8 % 0-1 [facility] Bilirubin Test strip Ql (U)O rdered By: Aleksandar Robert on 03-28-2025 Bilirubin Ql (U) Negative Negative [facility] Blood manual differential co mment interpretation (narrative result)Ordered By: Aleksandar Jones on 03-28-2025 Manual differential comment Diego (Bld) [Interp] SCANNED [facility] CBC-Complete Blood Cnt No Di ffon 03-28-2025 Erythrocyte distribution width (RBC) [Ratio] 13.8 % Normal 11.6-14.6 [facility] Comment on above: Order Comment: 135 Performed By: #### L 501.080 #### [facility] [address] [place], [address] Hematocrit (Bld) [Volume fraction] 38.1 % Normal 37-47 [facility] [facility] Comment on above: Order Comment: 135 Performed By: #### L 501.080 #### [facility] [address] [place], [address] Hemoglobin (Bld) [Mass/Vol] 12.8 g/dL Normal 12.0-15.0 [facility] Comment on above: Order Comment: 135 Performed By: #### L 501.080 #### [facility] [address] [place], [address] MCH (RBC) [Entitic mass] 29.3 pg Normal 27.0-32.0 [facility] Comment on above: Order Comment: 135 Performed By: #### L 501.080 #### [facility] [address] [place], [address] MCHC (RBC) [Mass/Vol] 33.6 g/dL Normal 32-36 [facility] Comment on above: Order Comment: 135 Performed By: #### L 501.080 #### [facility] [address] [place], [address] MCV (RBC) [Entitic vol] 87.2 fL Normal 81-99 [facility] Comment on above: Order Comment: 135 Performed By: #### L 501.080 #### [facility] [address] [place], [address] Platelet mean volume (Bld) [Entitic vol] 11.2 fL Normal 6.2-12.0 [facility] Comment on above: Order Comment: 135 Performed By: #### L 501.080 #### [facility] [address] [place], [address] Platelets (Bld) [#/Vol] 198 10*3/uL Normal 150-450 [facility] Comment on above: Order Comment: 135 Performed By: #### L 501.080 #### [facility] [address] [place], [address] RBC (Bld) [#/Vol] 4.37 10*6/uL Normal 4.2-5.4 [facility] Comment on above: Order Comment: 135 Performed By: #### L 501.080 #### [facility] [address] [place], [address] RDW SD 43.8 fl Normal 35.1-43.9 [facility] Comment on above: Order Comment: 135 Performed By: #### L 501.080 #### [facility] [address] [place], [address] WBC (Bld) [#/Vol] 8.5 10*3/uL Normal 4.4-11.0 [facility] Comment on above: Order Comment: 135 Performed By: #### L 501.080 #### [facility] [address] [place], [address] Carbon dioxide, total [Moles /volume] in Central venous bloodOrdered By: Aleksandar Jones on 03-28-2025 CO2 [Moles/Vol] 21.0 mmol/L 21.0-32.0 [facility] Chloride assayOrdered By: Julio Cesar Jones on 03-28-2025 Chloride [Moles/Vol] 96 mmol/L Low 98-108 [facility] Eosinophil %Ordered By: Jeancarlos Jones on 03-28-2025 Eosinophils/100 WBC (Bld) 0.4 % 0-5 [facility] Erythrocyte distribution wid th ratioOrdered By: Aleksandar Jones on 03-28-2025 Erythrocyte distribution width (RBC) [Ratio] 13.8 % 11.6-14.6 [facility] Erythrocyte distribution wid th standard deviationOrdered By: Aleksandar Jones on 03-28-2025 Erythrocyte distribution width (RBC) [Ratio] 43.8 fl 35.1-43.9 [facility] Glomerular filtration rate ( GFR) estimation/1.73 sq m using serum, plasma, or whole bOrdered By: Aleksandar Jones on 03-28-2025 GFR/1.73 sq M.predicted among non-blacks MDRD (S/P/Bld) [Vol rate/Area] 108 mL/min/{1.73_m2} >60 [facility] Comment on above: mL/min/1.73m2 CKD-EP I Creatinine Equation (2020) Hematocrit Auto (Bld) [Volum e fraction]Ordered By: Aleksandar Jones on 03-28-2025 Hematocrit (Bld) [Volume fraction] 38.1 % 37-47 [facility] Hemoglobin measurementOrdere d By: Aleksandar Jones on 03-28-2025 Hemoglobin (Bld) [Mass/Vol] 12.8 g/dL 12.0-15.0 [facility] Immature granulocyte percent ageOrdered By: Aleksandar Jones 03-28-2025 Immature granulocytes/100 WBC (Bld) 0.600 % 0.0-0.9 [facility] Comment on above: IG% - Immature Granu locytes (promyelocytes, myelocytes and metamyelocytes) > 1% indicates that a LEFT SHIFT is Present. Ketones Test strip Ql (U)Ord ered By: Aleksandar Jones on 03-28-2025 Ketones Ql (U) Negative Negative [facility] Lymphocyte %Ordered By: Jeancarlos Jones on 03-28-2025 Lymphocytes/100 WBC (Bld) 22.2 % 19-41 [facility] MCV (mean corpuscular volume ) determinationOrdered By: Aleksandar Jones on 03-28-2025 MCV (RBC) [Entitic vol] 87.2 fL 81-99 [facility] Mean corpuscular hemoglobin (MCH) determinationOrdered By: Aleksandar Jones on 03-28-2025 MCH (RBC) [Entitic mass] 29.3 pg 27.0-32.0 [facility] Mean corpuscular hemoglobin concentration (MCHC) determinationOrdered By: Aleksandar Jones on 03-28-2025 MCHC (RBC) [Mass/Vol] 33.6 g/dL 32-36 [facility] Mean platelet volume determi nationOrdered By: Aleksandar Jones on 03-28-2025 Platelet mean volume (Bld) [Entitic vol] 11.2 fL 6.2-12.0 [facility] Microscopic analysis of urin e for red blood cells (RBC)Ordered By: Aleksandar Jones on 03-28-2025 Microscopic analysis of urine for red blood cells (RBC) 0 SEEN /hpf 0-5 [facility] Monocyte percentageOrdered B y: Aleksandar Jones on 03-28-2025 Monocytes/100 WBC (Bld) 7.9 % 0-10 [facility] Mucus LM Ql (Urine sed)Order ed By: Aleksandar Jones on 03-28-2025 Mucus Ql (Urine sed) 0 SEEN /hpf [facility] Neutrophil %Ordered By: Jeancarlos Jones on 03-28-2025 Neutrophils/100 WBC (Bld) 68.1 % 47-70 [facility] Nitrite Test strip Ql (U)Ord ered By: Aleksandar Jones on 03-28-2025 Nitrite Ql (U) Negative Negative [facility] Platelet countOrdered By: Julio Cesar Jones on 03-28-2025 Platelets (Bld) [#/Vol] 198 10*3/uL 150-450 [facility] Potassium measurement (mass/ volume)Ordered By: Aleksandar Jones on 03-28-2025 Potassium (Unsp spec) [Mass/Vol] 4.5 mmol/L 3.3-5.1 [facility] Protein Test strip Ql (U)Ord ered By: Aleksandar Jones on 03-28-2025 Protein Ql (U) 15 mg/dl High Negative [facility] RBC Auto (Bld) [#/Vol]Ordere d By: Aleksandar Jones on 03-28-2025 RBC (Bld) [#/Vol] 4.37 10*6/uL 4.2-5.4 [facility] Serum creatinine measurement (mass/volume)Ordered By: Aleksandar Jones on 03-28-2025 Creatinine [Mass/Vol] 0.48 mg/dL Low 0.70-1.20 [facility] Serum glucose measurement (m ass/volume)Ordered By: Aleksandar Jones on 03-28-2025 Glucose [Mass/Vol] 169 mg/dL High 70-99 [facility] Serum or plasma calcium lawrence urement (mass/volume)Ordered By: Aleksandar Jones on 03-28-2025 Calcium [Mass/Vol] 9.2 mg/dL 7.6-11.0 [facility] Serum or plasma urea nitroge n measurement (mass/volume)Ordered By: Aleksandar Jones on 03-28-2025 Urea nitrogen [Mass/Vol] 14 mg/dL 4-19 [facility] Sodium levelOrdered By: Jeancarlos Jones on 03-28-2025 Sodium [Moles/Vol] 130 mmol/L Low 133-145 [facility] Squamous epithelial cells de tection in urine sediment by light microscopyOrdered By: Aleksandar Jones on 03-28-2025 Epithelial cells.squamous LM Ql (Urine sed) 0 SEEN /hpf 5-10 [facility] Transitional cells detection in urine sediment by light microscopyOrdered By: Aleksandar Jones on 03-28-2025 Transitional cells LM Ql (Urine sed) 0-5 SEEN /hpf 0-5 [facility] Urine clarityOrdered By: Guillaume Jones on 03-28-2025 Clarity (U) Clear Clear [facility] Urine color determinationOrd ered By: Aleksandar Jones on 03-28-2025 Color (U) Yellow Yellow [facility] Urine cultureOrdered By: Guillaume Jones on 03-28-2025 Bacteria identified Cx Nom (U) Positive Abnormal [facility] Urine glucose detectionOrder ed By: Aleksandar Jones on 03-28-2025 Glucose Ql (U) 1000 mg/dl High Normal [facility] Urine leukocyte esterase det ection by dipstickOrdered By: Aleksandar Jones on 03-28-2025 Leukocyte esterase Test strip Ql (U) Negative Negative [facility] Urine pHOrdered By: Aleksandar Jones on 03-28-2025 pH (U) 6.5 [pH] 5.0 - 8.0 [facility] Urine sediment bacteria coun t by microscopy (number/high power field)Ordered By: Aleksandar Robert on 03-28-2025 Bacteria LM.HPF (Urine sed) [#/Area] 0 /[HPF] None Seen [facility] Urine specific gravity measu rementOrdered By: Aleksandar [place] on 03-28-2025 Specific gravity (U) [Rel density] 1.010 1.002-1.030 [facility] Urine urobilinogen measureme ntOrdered By: [facility] on 03-28-2025 Urobilinogen Ql (U) Normal mg/dl Normal [facility] White blood cell (WBC) count [facility]-28-[facility] WBC (Bld) [#/Vol] 8.5 10*3/uL 4.4-11.0 [facility] White blood cell countOrdere d By: Aleksandar Jones on 03-28-2025 White blood cell count 0 SEEN /hpf 0-5 [facility] CNPNon 03-14-2025 CNPN Normal [facility] Absolute lymphocyte countOrd ered By: [facility] on 03-01-2025 Lymphocytes Auto (Unsp spec) [#/Vol] 1.91 10*3/uL 0.83-4.51 [facility] Absolute neutrophil countOrd ered By: [facility] on 03-01-2025 Neutrophils (Bld) [#/Vol] 9.8 10*3/uL High 2.0-7.7 [facility] Automated lymphocyte count a s percentage of total leukocytesOrdered By: [facility] on 03-01-2025 Lymphocytes/100 WBC Auto (Unsp spec) 15.0 % Low 19-41 [facility] Basophil percentageOrdered B y: [facility] on 03-01-2025 Basophils/100 WBC (Bld) 0.4 % 0-1 [facility] CBC W/Diff, Automatedon 02-11 Absolute Lymph 1.91 X10 3/uL Normal 0.83-4.51 [facility] Comment on above: Performed By: #### L 100.0100 #### [facility] [address] [place], [address] Absolute Neut 9.8 X10 3/uL High 2.0-7.7 [facility] Comment on above: Performed By: #### L 100.0100 #### [facility] [address] [place], [address] Basophils/100 WBC (Bld) 0.4 % Normal 0-1 [facility] Comment on above: Performed By: #### L 100.0100 #### [facility] [address] [place], [address] Eosinophils/100 WBC (Bld) 0.2 % Normal 0-5 [facility] Comment on above: Performed By: #### L 100.0100 #### [facility] [address] [place], [address] Erythrocyte distribution width (RBC) [Ratio] 14.1 % Normal 11.6-14.6 [facility] Comment on above: Performed By: #### L 100.0100 #### [facility] [address] [place], [address] Hematocrit (Bld) [Volume fraction] 39.9 % Normal 37-47 [facility] Comment on above: Performed By: #### L 100.0100 #### [facility] [address] [place], [address] Hemoglobin (Bld) [Mass/Vol] 13.4 g/dL Normal 12.0-15.0 [facility] Comment on above: Performed By: #### L 100.0100 #### [facility] [address] [place], [address] IG% 0.600 Normal 0.0-0.9 [facility] Comment on above: Result Comment: IG% - Immature Granulocytes (promyelocytes, myelocytes and metamyelocytes) > 1% indicates that a LEFT SHIFT is Present. Performed By: #### L 100.0100 #### [facility] [address] [place], [address] Lymphocytes/100 WBC (Bld) 15.0 % Low 19-41 [facility] Comment on above: Performed By: #### L 100.0100 #### [facility] [address] [place], [address] MCH (RBC) [Entitic mass] 29.5 pg Normal 27.0-32.0 [facility] Comment on above: Performed By: #### L 100.0100 #### [facility] [address] [place], [address] MCHC (RBC) [Mass/Vol] 33.6 g/dL Normal 32-36 [facility] Comment on above: Performed By: #### L 100.0100 #### [facility] [address] [place], [address] MCV (RBC) [Entitic vol] 87.7 fL Normal 81-99 [facility] Comment on above: Performed By: #### L 100.0100 #### [facility] [address] [place], [address] Monocytes/100 WBC (Bld) 6.6 % Normal 0-10 [facility] Comment on above: Performed By: #### L 100.0100 #### [facility] [address] [place], [address] Neutrophils/100 WBC (Bld) 77.2 % High 47-70 [facility] Comment on above: Performed By: #### L 100.0100 #### [facility] [address] [place], [address] Nucleated RBC (Bld) [#/Vol] 0 10*3/uL Normal 0-5 [facility] Comment on above: Performed By: #### L 100.0100 #### [facility] [address] [place], [address] Platelet mean volume (Bld) [Entitic vol] 10.9 fL Normal 6.2-12.0 [facility] Comment on above: Performed By: #### L 100.0100 #### [facility] [address] [place], [address] Platelets (Bld) [#/Vol] 212 10*3/uL Normal 150-450 [facility] Comment on above: Performed By: #### L 100.0100 #### [facility] [address] [place], [address] RBC (Bld) [#/Vol] 4.55 10*6/uL Normal 4.2-5.4 [facility] Comment on above: Performed By: #### L 100.0100 #### [facility] [address] [place], [address] RDW SD 44.8 fl High 35.1-43.9 [facility] Comment on above: Performed By: #### L 100.0100 #### [facility] [address] [place], [address] WBC (Bld) [#/Vol] 12.7 10*3/uL High 4.4-11.0 [facility] Comment on above: Performed By: #### L 100.0100 #### [facility] [address] [place], [address] CNPNon 03-01-2025 CNPN Normal [facility] Eosinophil percentageOrdered By: [facility] on 03-01-2025 Eosinophils/100 WBC (Bld) 0.2 % 0-5 [facility] Erythrocyte distribution wid th ratioOrdered By: [facility] on 03-01-2025 Erythrocyte distribution width (RBC) [Ratio] 14.1 % 11.6-14.6 [facility] Erythrocyte distribution wid th standard deviationOrdered By: [facility] on 03-01-2025 Erythrocyte distribution width (RBC) [Ratio] 44.8 fl High 35.1-43.9 [facility] Hematocrit Auto (Bld) [Volum e fraction]Ordered By: [facility] on 03-01-2025 Hematocrit (Bld) [Volume fraction] 39.9 % 37-47 [facility] Hemoglobin measurementOrdere d By: [facility] on 03-01-2025 Hemoglobin (Bld) [Mass/Vol] 13.4 g/dL 12.0-15.0 [facility] Immature granulocytes/100 WB C Auto (Bld)Ordered By: [facility] on 03-01-2025 Immature granulocytes/100 WBC (Bld) 0.600 % 0.0-0.9 [facility] Comment on above: IG% - Immature Granu locytes (promyelocytes, myelocytes and metamyelocytes) > 1% indicates that a LEFT SHIFT is Present. MCV (mean corpuscular volume ) determinationOrdered By: [facility] on 03-01-2025 MCV (RBC) [Entitic vol] 87.7 fL 81-99 [facility] Mean corpuscular hemoglobin (MCH) determinationOrdered By: [facility] on 03-01-2025 MCH (RBC) [Entitic mass] 29.5 pg 27.0-32.0 [facility] Mean corpuscular hemoglobin concentration (MCHC) determinationOrdered By: [facility] on 03-01-2025 MCHC (RBC) [Mass/Vol] 33.6 g/dL 32-36 [facility] Mean platelet volume determi nationOrdered By: [facility] on 03-01-2025 Platelet mean volume (Bld) [Entitic vol] 10.9 fL 6.2-12.0 [facility] Monocyte percentageOrdered B y: [facility] on 03-01-2025 Monocytes/100 WBC (Bld) 6.6 % 0-10 [facility] Neutrophil percentageOrdered By: [facility] on 03-01-2025 Neutrophils/100 WBC (Bld) 77.2 % High 47-70 [facility] Nucleated red blood cell per centageOrdered By: [facility] on 03-01-2025 Nucleated RBC/100 WBC (Bld) [Ratio] 0 % 0-5 [facility] Platelet countOrdered By: [facility] on 03-01-2025 Platelets (Bld) [#/Vol] 212 10*3/uL 150-450 [facility] RBC Auto (Bld) [#/Vol]Ordere d By: [facility] on 03-01-2025 RBC (Bld) [#/Vol] 4.55 10*6/uL 4.2-5.4 [facility] White blood cell (WBC) count Ordered By: [facility] on 03-01-2025 WBC (Bld) [#/Vol] 12.7 10*3/uL High 4.4-11.0 [facility] Normal [facility] 02-10-2025 [facility] Normal [facility] Absolute lymphocyte countOrd ered By: Lorraine Springer on 02-02-2025 Lymphocytes Auto (Unsp spec) [#/Vol] 2.80 10*3/uL 0.83-4.51 [facility] Absolute neutrophil countOrd ered By: Lorraine Springer on 02-02-2025 Neutrophils (Bld) [#/Vol] 6.4 10*3/uL 2.0-7.7 [facility] Automated lymphocyte count a s percentage of total leukocytesOrdered By: Lorraine pSringer on 02-02-2025 Lymphocytes/100 WBC Auto (Unsp spec) 27.4 % 19-41 [facility] Basophil percentageOrdered B y: Lorraine Springer on 02-02-2025 Basophils/100 WBC (Bld) 0.5 % 0-1 [facility] CBC W/Diff, Automatedon 01-12 REACTIVE LYMPH RARE Normal [facility] Comment on above: Performed By: #### L 100.0100 #### [facility] [place], [address] Eosinophil percentageOrdered By: Lorraine Springer on 02-02-2025 Eosinophils/100 WBC (Bld) 0.4 % 0-5 [facility] Erythrocyte distribution wid th ratioOrdered By: Lorraine Springer on 02-02-2025 Erythrocyte distribution width (RBC) [Ratio] 13.2 % 11.6-14.6 [facility] Erythrocyte distribution wid th standard deviationOrdered By: Lorraine Springer on 02-02-2025 Erythrocyte distribution width (RBC) [Ratio] 41.5 fl 35.1-43.9 [facility] Hematocrit Auto (Bld) [Volum e fraction]Ordered By: Lorraine Springer on 02-02-2025 Hematocrit (Bld) [Volume fraction] 38.7 % 37-47 [facility] Hemoglobin measurementOrdere d By: Lorraine Springer on 02-02-2025 Hemoglobin (Bld) [Mass/Vol] 12.9 g/dL 12.0-15.0 [facility] Immature granulocytes/100 WB C Auto (Bld)Ordered By: Lorraine Springer on 02-02-2025 Immature granulocytes/100 WBC (Bld) 0.700 % 0.0-0.9 [facility] Comment on above: IG% - Immature Granu locytes (promyelocytes, myelocytes and metamyelocytes) > 1% indicates that a LEFT SHIFT is Present. MCV (mean corpuscular volume ) determinationOrdered By: Lorraine Springer on 02-02-2025 MCV (RBC) [Entitic vol] 86.6 fL 81-99 [facility] Mean corpuscular hemoglobin (MCH) determinationOrdered By: Lorraine Springer on 02-02-2025 MCH (RBC) [Entitic mass] 28.9 pg 27.0-32.0 [facility] Mean corpuscular hemoglobin concentration (MCHC) determinationOrdered By: Lorraine Springer on 02-02-2025 MCHC (RBC) [Mass/Vol] 33.3 g/dL 32-36 [facility] Mean platelet volume determi nationOrdered By: Lorraine Springer on 02-02-2025 Platelet mean volume (Bld) [Entitic vol] 10.3 fL 6.2-12.0 [facility] Monocyte percentageOrdered B y: Lorraine Springer on 02-02-2025 Monocytes/100 WBC (Bld) 8.8 % 0-10 [facility] Neutrophil percentageOrdered By: Lorraine Springer on 02-02-2025 Neutrophils/100 WBC (Bld) 62.2 % 47-70 [facility] Nucleated red blood cell per centageOrdered By: Lorraine Springer on 02-02-2025 Nucleated RBC/100 WBC (Bld) [Ratio] 0 % 0-5 [facility] Platelet countOrdered By: Anastacia Springer on 02-02-2025 Platelets (Bld) [#/Vol] 213 10*3/uL 150-450 [facility] RBC Auto (Bld) [#/Vol]Ordere d By: Lorraine Springer on 02-02-2025 RBC (Bld) [#/Vol] 4.47 10*6/uL 4.2-5.4 [facility] White blood cell (WBC) count Ordered By: Lorraine Springer on 02-02-2025 WBC (Bld) [#/Vol] 10.2 10*3/uL 4.4-11.0 [facility] CNPNon 01-31-2025 CNPN Normal [facility] CNPNon 01-27-2025 CNPN Normal [facility] CNPNon 01-21-2025 CNPN Normal [facility] FRANNY SCREENING W TOMOon 01-19 FRANNY SCREENING W AUGUSTO Normal [facility] No Panel Informationon 01-18 IMPRESSION: Hepatic steatosis. Prior cholecystectomy. [employer] Consultant: MILDRED Transcribe Date/Time: Jan 18 2025 11:43A Dictated by : SABRA BYRD MD This examination was interpreted and the report reviewed and electronically signed by: SABRA BYRD MD on Jan 18 2025 11:44AM [facility] DIVISION OF RADIOLOGY Radiology Study observation (narrative) [facility] No Panel InformationOrdered By: [facility] Provider on 01-18-2025 [facility] US ABD RIGHT UPPER QUADRANTo n 01-18-2025 US ABD RIGHT UPPER QUADRANT Normal [facility] US ABD SPLEEN - NBon 025 * [...] dimension. Ascites: None. DIVISION OF RADIOLOGY Provider, [facility] - 01/18/2025 * * *Final Report* * * DATE OF EXAM: Jan 18 2025 10:29AM U 1232 - US ABD SPLEEN -NB / [...] None. IMPRESSION IMPRESSION: Hepatic steatosis. Prior cholecystectomy. [employer] Consultant: MILDRED Transcribe Date/Time: Jan 18 2025 11:43A Dictated by : SABRA BYRD MD This examination was interpreted and the report reviewed and electronically signed by: SABRA BYRD MD on Jan 18 2025 11:44AM [facility] US ABD SPLEEN -NBon 01-19-20 US ABD SPLEEN -NB Normal [facility] US Abdomen RUQon 01-18-2025 * * *Final Report* * * DATE OF EXAM: Jan 18 2025 10:29AM U 1032 - US ABD RIGHT UPPER QUADRANT [...] dimension. Ascites: None. DIVISION OF RADIOLOGY Provider, [facility] - 01/18/2025 * * *Final Report* * * DATE OF EXAM: Jan 18 2025 10:29AM U 1032 - US ABD RIGHT UPPER QUADRANT [...] None. IMPRESSION IMPRESSION: Hepatic steatosis. Prior cholecystectomy. [employer] Consultant: MILDRED Transcribe Date/Time: Jan 18 2025 11:43A Dictated by : SABRA BYRD MD This examination was interpreted and the report reviewed and electronically signed by: SABRA BYRD MD on Jan 18 2025 11:44AM EST [facility] CNOVon 01-12-2025 CNOV Normal [facility] CNPNon 01-12-2025 CNPN Normal [facility] HBV DNA Qn (S)on 01-12-2025 HBV DNA LUIS M+probe Ql Not detected Not detected [facility] Interpretation and review of laboratory results Normal [facility] melanie HBV is an in v [...] EDTA plasma and 2.4 IU/mL in serum. [facility] HBV core Ab Ql (S)on Interpretation and review of laboratory results Normal [facility] HBV core IgM Ql (S)on 2024 Interpretation and review of laboratory results Abnormal [facility] HBV surface Ab Ql (S)on HBV surface Ab Qn (S) mIU/mL [facility] Comment on above: <8 mIU/mL: No serolo gical evidence of immunity to Hepatitis B Virus. >/= 8 to <12 mIU/mL: No serological evidence of immunity to Hepatitis B Virus. >/= 12 mIU/mL: Consistent with serological evidence of immunity to Hepatitis B Virus. [facility] HBV surface Ag Ql (S)on Interpretation and review of laboratory results Normal [facility] HEPATITIS B CORE ANTIBODY IG 01-12-2025 HBV core IgM Ql (S) Positive Abnormal Negative [facility] Comment on above: The result suggests recent acute infection with Hepatitis B virus. Non-specific reactivity is not uncommon with this test. HBV core IgM antibody may also remain elevated for extended periods after an acute bout of infection. Clinical correlation required. HEPATITIS B CORE ANTIBODY TO Joslyn 01-12-2025 HBV core Ab Ql (S) Negative Negative [facility] Comment on above: No evidence of curre nt or past infection with Hepatitis B virus. Should recent infection be suspected, repeat testing may be considered 3-4 weeks after this draw. HEPATITIS B SURFACE ANTIBODY on 01-12-2025 HBV surface Ab Ql (S) Negative [facility] Comment on above: No serological evide nce of immunity to Hepatitis B Virus. HEPATITIS B SURFACE ANTIGENo n 01-12-2025 HBV surface Ag Ql (S) Negative Negative [facility] Osmolality Uron 01-12-2025 Osmolality (U) [Osmolality] 131 mosm/kg Normal 50-1200 [facility] Comment on above: Order Comment: Speci men Type: URINE SPECIMENOrdering Facility: [facility] Address: [address] [place] [address] Performed By: #### 2 695-5 ####[facility] LABIA [id number] [place] [address] [place] Sodium ?Tm Ur-sCncon 025 Sodium Unsp time (U) [Moles/Vol] 32 mmol/L Normal 14-216 [facility] Comment on above: Order Comment: Speci men Type: URINE SPECIMENOrdering Facility: [facility] Address: [address] [place] [address] Performed By: #### 3 5678-2 ####[facility] [id number] [place] [address] [place] Comprehensive metabolic 2000 panelon 01-11-2025 Albumin [Mass/Vol] 4.7 g/dL Normal 3.9-4.9 [facility] Comment on above: Order Comment: Speci men Type: BLOOD SPECIMENOrdering Facility: [facility] Address: [address] [place] [address] Performed By: #### 5 195-3, 02161-2, 39355-9, 48108-0, 12972-2 ####[facility] LABIA [id number] [place] [address] [place] ALP [Catalytic activity/Vol] 128 U/L High 34-123 [facility] Comment on above: Order Comment: Speci men Type: BLOOD SPECIMENOrdering Facility: [facility] Address: [address] [place] [address] Performed By: #### 5 195-3, 54622-9, 15497-1, 38405-8, 32317-0 ####[facility] LABCLIA [id number] [facility] [address] [address] [place] ALT [Catalytic activity/Vol] 51 U/L High 7-38 [facility] Comment on above: Order Comment: Speci men Type: BLOOD SPECIMENOrdering Facility: [facility] Address: [address] [place] [address] Performed By: #### 5 195-3, 74993-3, 98913-5, 16218-1, 75696-3 ####[facility] LABIA [id number] [place] [address] [place] Anion gap [Moles/Vol] 19 mmol/L High 8-15 [facility] Comment on above: Order Comment: Speci men Type: BLOOD SPECIMENOrdering Facility: [facility] Address: [address] [place] [address] Performed By: #### 5 195-3, 45893-0, 65038-5, 67905-4, 69950-9 ####[facility] LABIA [id number] [place] [address] [place] AST [Catalytic activity/Vol] 23 U/L Normal 13-35 [facility] Comment on above: Order Comment: Speci men Type: BLOOD SPECIMENOrdering Facility: [facility] Address: [address] [place], [place] [address] Performed By: #### 5 195-3, 42323-0, 98159-6, 48082-3, 94312-6 ####[facility] LABCLIA [id number] [address] [address] [place] Bilirubin [Mass/Vol] 0.3 mg/dL Normal 0.2-1.3 [facility] Comment on above: Order Comment: Speci men Type: BLOOD SPECIMENOrdering Facility: [facility] Address: [address] [place] [address] Performed By: #### 5 195-3, 55515-7, 94366-2, 22054-4, 46377-4 ####[facility] LABCLIA [id number] [place] [id number] [place] Calcium [Mass/Vol] 9.4 mg/dL Normal 8.5-10.2 [facility] Comment on above: Order Comment: Speci men Type: BLOOD SPECIMENOrdering Facility: [facility] Address: [address] [place] [address] Performed By: #### 5 195-3, 56190-4, 75296-5, 95080-2, 26684-3 ####[facility] LABCLIA [id number] [place] [address] [place] Chloride [Moles/Vol] 93 mmol/L Low 98-107 [facility] Comment on above: Order Comment: Speci men Type: BLOOD SPECIMENOrdering Facility: [facility] Address: [address] [place] [address] Performed By: #### 5 195-3, 32391-7, 14891-6, 44891-9, 82306-5 ####[facility] LABCLIA [id number] [place] [address] [place] CO2 [Moles/Vol] 18 mmol/L Low 22-30 [facility] Comment on above: Order Comment: Speci men Type: BLOOD SPECIMENOrdering Facility: [facility] Address: [address] [place] [address] Performed By: #### 5 195-3, 27680-8, 13162-8, 44929-8, 28825-7 ####[facility] LABCLIA [id number] [place] [id number] [place] Creatinine [Mass/Vol] 0.40 mg/dL Low 0.58-0.96 [facility] Comment on above: Order Comment: Rand gonzalez Type: BLOOD SPECIMENOrdering Facility: [facility] Address: [address] [place] [address] Performed By: #### 5 195-3, 40874-5, 93206-5, 63263-6, 03772-3 ####[facility] LABIA [id number] [address] Creatinine and Glomerular filtration rate.predicted panel (S/P/Bld) 113 mL/min/1.73m??? Normal >=60 [facility] Comment on above: Order Comment: Rand gonzalez Type: BLOOD SPECIMENOrdering Facility: [facility] Address: [address] [place] [address] Result Comment: Gia mated Glomerular Filtration Rate [...] accurately reflect actual GFR. Performed By: #### 5 195-3, 07021-6, 90421-2, 60264-9, 09017-6 ####[facility] [id number] [place] [id number] [place] Glucose [Mass/Vol] 155 mg/dL High 74-99 [facility] Comment on above: Order Comment: Rand carlos Type: BLOOD SPECIMENOrdering Facility: [facility] Address: [address] [place] [address] Result Comment: The [place] Diabetes Association (ADA) provides guidance for cutoff [...] Standards of Medical Care in Diabetes 2016, [place] Diabetes Association. Diabetes Care. 2016.39(Suppl 1). Performed By: #### 5 195-3, 65483-9, 44695-4, 58358-2, 19927-8 ####[facility] LABCLIA [id number] [address] [address] [place] Potassium [Moles/Vol] 4.6 mmol/L Normal 3.7-5.1 [facility] Comment on above: Order Comment: Rand gonzalez Type: BLOOD SPECIMENOrdering Facility: [facility] Address: [address] [place] [address] Performed By: #### 5 195-3, 63863-4, 70128-3, 48227-7, 46009-6 ####[facility] LABCLIA [id number] [place] [address] [place] Protein [Mass/Vol] 7.4 g/dL Normal 6.3-8.0 [facility] Comment on above: Order Comment: Rand gonzalez Type: BLOOD SPECIMENOrdering Facility: [facility] Address: [address] [place] [address] Performed By: #### 5 195-3, 29261-2, 64383-3, 75537-7, 01267-6 ####[facility] LABCLIA [id number] [place] [id number] [place] Sodium [Moles/Vol] 130 mmol/L Low 136-144 [facility] Comment on above: Order Comment: Rand gonzalez Type: BLOOD SPECIMENOrdering Facility: [facility] Address: [address] [place] [address] Performed By: #### 5 195-3, 14159-5, 64691-6, 84001-6, 63319-4 ####[facility] LABCLIA [id number] [place] [address] [place] Urea nitrogen [Mass/Vol] 7 mg/dL Normal 7-21 [facility] Comment on above: Order Comment: Speci men Type: BLOOD SPECIMENOrdering Facility: [facility] Address: [address] [place] [address] Performed By: #### 5 195-3, 86913-0, 12726-4, 07482-3, 30819-7 ####[facility] LABCLIA [id number] [place] [address] [place] HBV DNA Qn (S)on 01-11-2025 HBV DNA LUIS M+probe Ql Not detected Normal Not detected [facility] Comment on above: Order Comment: Rand gonzalez Type: BLOOD SPECIMENOrdering Facility: [facility] Address: [address] [place] [address] Performed By: #### 1 1258-1 ####[facility] LABIA [id number] [place] [address] [place] HBV core Ab Ser Qlon 025 HBV core Ab Ql (S) Negative Normal Negative [facility] Comment on above: Order Comment: Rand gonzalez Type: BLOOD SPECIMENOrdering Facility: [facility] Address: [address] [place] [address] Result Comment: No e vidence of current or past infection with Hepatitis B virus. Should recent infection be suspected, repeat testing may be considered 3-4 weeks after this draw. Performed By: #### 5 195-3, 49544-0, 68100-2, 46022-4, 72727-4 ####[facility] LABCLIA [id number] [place] [address] [place] HBV core IgM Ser Qlon 2024 HBV core IgM Ql (S) Positive Abnormal Negative [facility] Comment on above: Order Comment: Andreii carlos Type: BLOOD SPECIMENOrdering Facility: [facility] Address: [address] [place] [address] Result Comment: The result suggests recent acute infection with Hepatitis B virus. Non-specific reactivity is not uncommon with this test. HBV core IgM antibody may also remain elevated for extended periods after an acute bout of infection. Clinical correlation required. Performed By: #### 5 195-3, 24160-0, 32593-8, 71503-3, 34626-8 ####[facility] LABCLIA [id number] [place] [address] [place] HBV surface Ab Ql (S)on HBV surface Ab Qn (S) <8.[address] [facility] Comment on above: Order Comment: Speci men Type: BLOOD SPECIMENOrdering Facility: [facility] Address: [address] [place] [address] Result Comment: <8 m IU/mL: No serological evidence of immunity to Hepatitis B Virus.>/= 8 to <12 mIU/mL: No serological evidence of immunity to Hepatitis B Virus.>/= 12 mIU/mL: Consistent with serological evidence of immunity to Hepatitis B Virus. Performed By: #### 5 195-3, 44479-5, 77813-5, 45319-1, 02452-9 ####[facility] LABIA [id number] [place] [address] [place] HBV surface Ab Ser Qlon HBV surface Ab Ql (S) Negative Normal [facility] Comment on above: Order Comment: Speci men Type: BLOOD SPECIMENOrdering Facility: [facility] Address: [address] [place] [address] Result Comment: No s erological evidence of immunity to Hepatitis B Virus. Performed By: #### 5 195-3, 20488-9, 92535-5, 61853-5, 75824-6 ####[facility] LABCLIA [id number] [address] [address] [place] HBV surface Ag Ser Qlon HBV surface Ag Ql (S) Negative Normal Negative [facility] Comment on above: Order Comment: Speci men Type: BLOOD SPECIMENOrdering Facility: [facility] Address: [address] [place] [address] Performed By: #### 5 195-3, 79300-3, 85331-2, 99386-0, 07486-9 ####[facility] LABCLIA [id number] [place] [address] [place] CNPNon 01-05-2025 CNPN Normal [facility] Absolute lymphocyte countOrd ered By: Lorraine Springer on 01-04-2025 Lymphocytes Auto (Unsp spec) [#/Vol] 2.29 10*3/uL 0.83-4.51 [facility] Absolute neutrophil countOrd ered By: Lorraine Springer on 01-04-2025 Neutrophils (Bld) [#/Vol] 8.8 10*3/uL High 2.0-7.7 [facility] Automated lymphocyte count a s percentage of total leukocytesOrdered By: Lorraine Springer on 01-04-2025 Lymphocytes/100 WBC Auto (Unsp spec) 19.0 % 19-41 [facility] Basophil percentageOrdered B y: Lorraine Springer on 01-04-2025 Basophils/100 WBC (Bld) 0.3 % 0-1 [facility] CBC W/Diff, Automatedon 12-12 Absolute Lymph 2.29 X10 3/uL Normal 0.83-4.51 [facility] Comment on above: Performed By: #### L 100.0100 #### [facility] [address] [facility] [place], [address] Absolute Neut 8.8 X10 3/uL High 2.0-7.7 [facility] Comment on above: Performed By: #### L 100.0100 #### [facility] [address] [place], [address] Basophils/100 WBC (Bld) 0.3 % Normal 0-1 [facility] Comment on above: Performed By: #### L 100.0100 #### [facility] [address] [place], [address] Eosinophils/100 WBC (Bld) 0.2 % Normal 0-5 [facility] Comment on above: Performed By: #### L 100.0100 #### [facility] [address] [place], [address] Erythrocyte distribution width (RBC) [Ratio] 13.9 % Normal 11.6-14.6 [facility] Comment on above: Performed By: #### L 100.0100 #### [facility] [address] [place], [address] Hematocrit (Bld) [Volume fraction] 39.5 % Normal 37-47 [facility] Comment on above: Performed By: #### L 100.0100 #### [facility] [address] [place], [address] Hemoglobin (Bld) [Mass/Vol] 13.1 g/dL Normal 12.0-15.0 [facility] Comment on above: Performed By: #### L 100.0100 #### [facility] [address] [place], [address] IG% 0.700 Normal 0.0-0.9 [facility] Comment on above: Result Comment: IG% - Immature Granulocytes (promyelocytes, myelocytes and metamyelocytes) > 1% indicates that a LEFT SHIFT is Present. Performed By: #### L 100.0100 #### [facility] [address] [place], [address] Lymphocytes/100 WBC (Bld) 19.0 % Normal 19-41 [facility] Comment on above: Performed By: #### L 100.0100 #### [facility] [address] [place], [address] MCH (RBC) [Entitic mass] 29.1 pg Normal 27.0-32.0 [facility] Comment on above: Performed By: #### L 100.0100 #### [facility] [address] [place], [address] MCHC (RBC) [Mass/Vol] 33.2 g/dL Normal 32-36 [facility] Comment on above: Performed By: #### L 100.0100 #### [facility] [address] [place], [address] MCV (RBC) [Entitic vol] 87.8 fL Normal 81-99 [facility] Comment on above: Performed By: #### L 100.0100 #### [facility] [address] [place], [address] Monocytes/100 WBC (Bld) 6.5 % Normal 0-10 [facility] Comment on above: Performed By: #### L 100.0100 #### [facility] [address] [place], [address] Neutrophils/100 WBC (Bld) 73.3 % High 47-70 [facility] Comment on above: Performed By: #### L 100.0100 #### [facility] [address] [place], [address] Nucleated RBC (Bld) [#/Vol] 0 10*3/uL Normal 0-5 [facility] Comment on above: Performed By: #### L 100.0100 #### [facility] [address] [place], [address] Platelet mean volume (Bld) [Entitic vol] 10.1 fL Normal 6.2-12.0 [facility] Comment on above: Performed By: #### L 100.0100 #### [facility] [address] [place], [address] Platelets (Bld) [#/Vol] 195 10*3/uL Normal 150-450 [facility] Comment on above: Performed By: #### L 100.0100 #### [facility] [address] [place], [place], [address] ([address]) RBC (Bld) [#/Vol] 4.50 10*6/uL Normal 4.2-5.4 [facility] Comment on above: Performed By: #### L 100.0100 #### [facility] [address] [place], [address] RDW SD 44.7 fl High 35.1-43.9 [facility] Comment on above: Performed By: #### L 100.0100 #### [facility] [address] [place], [address] WBC (Bld) [#/Vol] 12.1 10*3/uL High 4.4-11.0 [facility] Comment on above: Performed By: #### L 100.0100 #### [facility] [address] [place], [address] CNPNon 01-04-2025 CNPN Normal [facility] Eosinophil percentageOrdered By: Lorraine Springer on 01-04-2025 Eosinophils/100 WBC (Bld) 0.2 % 0-5 [facility] Erythrocyte distribution wid th ratioOrdered By: Lorraine Springer on 01-04-2025 Erythrocyte distribution width (RBC) [Ratio] 13.9 % 11.6-14.6 [facility] Erythrocyte distribution wid th standard deviationOrdered By: Lorraine Springer on 01-04-2025 Erythrocyte distribution width (RBC) [Entitic vol] 44.7 fL High 35.1-43.9 [facility] Erythrocyte distribution width (RBC) [Ratio] 44.7 fl High 35.1-43.9 [facility] Hematocrit Auto (Bld) [Volum e fraction]Ordered By: Lorraine Springer on 01-04-2025 Hematocrit (Bld) [Volume fraction] 39.5 % 37-47 [facility] Hemoglobin measurementOrdere d By: Lorraine Springer on 01-04-2025 Hemoglobin (Bld) [Mass/Vol] 13.1 g/dL 12.0-15.0 [facility] Immature granulocytes/100 WB C Auto (Bld)Ordered By: Lorraine Springer on 01-04-2025 Immature granulocytes/100 WBC (Bld) 0.700 % 0.0-0.9 [facility] Comment on above: IG% - Immature Granu locytes (promyelocytes, myelocytes and metamyelocytes) > 1% indicates that a LEFT SHIFT is Present. Lymphocytes Auto (Unsp spec) [#/Vol]Ordered By: Lorraine Springer on 01-04-2025 Lymphocytes (Bld) [#/Vol] 2.29 10*3/uL 0.83-4.51 [facility] Lymphocytes/100 WBC Auto (Un sp spec)Ordered By: Lorraine Springer on 01-04-2025 Lymphocytes/100 WBC (Bld) 19.0 % 19-41 [facility] MCV (mean corpuscular volume ) determinationOrdered By: Lorraine Springer on 01-04-2025 MCV (RBC) [Entitic vol] 87.8 fL 81-99 [facility] Mean corpuscular hemoglobin (MCH) determinationOrdered By: Lorraine Springer on 01-04-2025 MCH (RBC) [Entitic mass] 29.1 pg 27.0-32.0 [facility] Mean corpuscular hemoglobin concentration (MCHC) determinationOrdered By: Lorraine Springer on 01-04-2025 MCHC (RBC) [Mass/Vol] 33.2 g/dL 32-36 [facility] Mean platelet volume determi nationOrdered By: Lorraine Springer on 01-04-2025 Platelet mean volume (Bld) [Entitic vol] 10.1 fL 6.2-12.0 [facility] Monocyte percentageOrdered B y: Lorraine Springer on 01-04-2025 Monocytes/100 WBC (Bld) 6.5 % 0-10 [facility] Neutrophil percentageOrdered By: Lorraine Springer on 01-04-2025 Neutrophils/100 WBC (Bld) 73.3 % High 47-70 [facility] Nucleated red blood cell per centageOrdered By: Lorraine Springer on 01-04-2025 Nucleated RBC/100 WBC (Bld) [Ratio] 0 % 0-5 [facility] Platelet countOrdered By: Anastacia Springer on 01-04-2025 Platelets (Bld) [#/Vol] 195 10*3/uL 150-450 [facility] RBC Auto (Bld) [#/Vol]Ordere d By: Lorraine Springer on 01-04-2025 RBC (Bld) [#/Vol] 4.50 10*6/uL 4.2-5.4 [facility] White blood cell (WBC) count Ordered By: Lorraine Springer on 01-04-2025 WBC (Bld) [#/Vol] 12.1 10*3/uL High 4.4-11.0 [facility] Basic metabolic 2000 panelon 01-03-2025 Anion gap [Moles/Vol] 12 mmol/L Normal 8-15 [facility] Comment on above: Order Comment: Speci men Type: BLOOD SPECIMENOrdering Facility: [facility] Address: [address] [place] [address] Performed By: #### 2 4321-2 ####[facility] LABCLIA [id number] [place] [address] [place] Calcium [Mass/Vol] 9.4 mg/dL Normal 8.5-10.2 [facility] Comment on above: Order Comment: Speci men Type: BLOOD SPECIMENOrdering Facility: [facility] Address: [address] [place] [address] Performed By: #### 2 4321-2 ####[facility] LABCLIA [id number] [place] [id number] [place] Chloride [Moles/Vol] 93 mmol/L Low 98-107 [facility] Comment on above: Order Comment: Speci men Type: BLOOD SPECIMENOrdering Facility: [facility] Address: [address] [place] [address] Performed By: #### 2 4321-2 ####[facility] LABCLIA [id number] [place] [id number] [place] CO2 [Moles/Vol] 21 mmol/L Low 22-30 [facility] Comment on above: Order Comment: Speci men Type: BLOOD SPECIMENOrdering Facility: [facility] Address: [address] [place] [address] Performed By: #### 2 4321-2 ####[facility] LABIA [id number] [place] [id number] [place] Creatinine [Mass/Vol] 0.46 mg/dL Low 0.58-0.96 [facility] Comment on above: Order Comment: Speci men Type: BLOOD SPECIMENOrdering Facility: [facility] Address: [address] [place] [address] Performed By: #### 2 4321-2 ####[facility] [id number] [place] [address] [place] [facility] Creatinine and Glomerular filtration rate.predicted panel (S/P/Bld) 109 mL/min/1.73m??? Normal >=60 [facility] Comment on above: Order Comment: Speci men Type: BLOOD SPECIMENOrdering Facility: [facility] Address: [address] [place] [address] Result Comment: Gia mated Glomerular Filtration Rate [...] actual GFR. Performed By: #### 2 4321-2 ####[facility] LABIA [id number] [place] [id number] [place] Glucose [Mass/Vol] 142 mg/dL High 74-99 [facility] Comment on above: Order Comment: Speci men Type: BLOOD SPECIMENOrdering Facility: [facility] Address: [address] [place] [address] Result Comment: The [place] Diabetes Association (ADA) provides guidance for cutoff [...] Standards of Medical Care in Diabetes 2016, [place] Diabetes Association. Diabetes Care. 2016.39(Suppl 1). Performed By: #### 2 4321-2 ####[facility] LABCLIA [id number] [place] [address] [place] Potassium [Moles/Vol] 4.6 mmol/L Normal 3.7-5.1 [facility] Comment on above: Order Comment: Speci men Type: BLOOD SPECIMENOrdering Facility: [facility] Address: [address] [place] [address] Performed By: #### 2 4321-2 ####[facility] LABIA [id number] [place] [address] [place] Sodium [Moles/Vol] 126 mmol/L Low 136-144 [facility] Comment on above: Order Comment: Speci men Type: BLOOD SPECIMENOrdering Facility: [facility] Address: [address] [place] [address] Performed By: #### 2 4321-2 ####[facility] LABIA [id number] [place] [address] [place] Urea nitrogen [Mass/Vol] 12 mg/dL Normal 7-21 [facility] Comment on above: Order Comment: Speci men Type: BLOOD SPECIMENOrdering Facility: [facility] Address: [address] [place] [address] Performed By: #### 2 4321-2 ####[facility] LABCLIA [id number] [address], [place] [address] [place] CBC W Auto Differential pane l (Bld)on 01-03-2025 Basophils (Bld) [#/Vol] 0.06 10*3/uL Normal <0.11 [facility] Comment on above: Order Comment: Speci men Type: BLOOD SPECIMENOrdering Facility: [facility] Address: [address] [place] [address] Performed By: #### 5 7021-8 ####[facility] LABCLIA [id number] [place] [address] [place] Basophils/100 WBC (Bld) 0.6 % Normal [facility] Comment on above: Order Comment: Speci men Type: BLOOD SPECIMENOrdering Facility: [facility] Address: [address] [place] [address] Performed By: #### 5 7021-8 ####[facility] LABCLIA [id number] [place] [address] [place] Differential cell count method Nom (Bld) Auto Normal [facility] Comment on above: Order Comment: Speci men Type: BLOOD SPECIMENOrdering Facility: [facility] Address: [address] [place] [address] Performed By: #### 5 7021-8 ####[facility] LABCLIA [id number] [place] [address] [place] Eosinophils (Bld) [#/Vol] 0.03 10*3/uL Normal <0.46 [facility] Comment on above: Order Comment: Speci men Type: BLOOD SPECIMENOrdering Facility: [facility] Address: [address] [place] [address] Performed By: #### 5 7021-8 ####[facility] LABCLIA [id number] [place] [address] [place] Eosinophils/100 WBC (Bld) 0.3 % Normal [facility] Comment on above: Order Comment: Speci men Type: BLOOD SPECIMENOrdering Facility: [facility] Address: [address] [place] [address] Performed By: #### 5 7021-8 ####[facility] LABCLIA [id number] [place] [address] [place] Erythrocyte distribution width (RBC) [Ratio] 14.2 % Normal 11.5-15.0 [facility] Comment on above: Order Comment: Speci men Type: BLOOD SPECIMENOrdering Facility: [facility] Address: [address] [place] [address] Performed By: #### 5 7021-8 ####[facility] LABIA [id number] [place] [address] [place] Hematocrit (Bld) [Volume fraction] 42.2 % Normal 36.0-46.0 [facility] Comment on above: Order Comment: Speci men Type: BLOOD SPECIMENOrdering Facility: [facility] Address: [address] [place] [address] Performed By: #### 5 7021-8 ####[facility] LABIA [id number] [place] [address] [place] Hemoglobin (Bld) [Mass/Vol] 13.5 g/dL Normal 11.5-15.5 [facility] Comment on above: Order Comment: Speci men Type: BLOOD SPECIMENOrdering Facility: [facility] Address: [address] [place] [address] Performed By: #### 5 7021-8 ####[facility] LABCLIA [id number] [place] [address] [place] Immature granulocytes (Bld) [#/Vol] 0.08 10*3/uL Normal <0.10 [facility] Comment on above: Order Comment: Speci men Type: BLOOD SPECIMENOrdering Facility: [facility] Address: [address] [place] [address] Performed By: #### 5 7021-8 ####[facility] LABCLIA [id number] [place] [address] [place] Immature granulocytes/100 WBC (Bld) 0.8 % Normal [facility] Comment on above: Order Comment: Speci men Type: BLOOD SPECIMENOrdering Facility: [facility] Address: [address] [place] [address] Performed By: #### 5 7021-8 ####[facility] LABIA [id number] [place] [address] [place] Lymphocytes (Bld) [#/Vol] 2.24 10*3/uL Normal 1.00-4.00 [facility] Comment on above: Order Comment: Speci men Type: BLOOD SPECIMENOrdering Facility: [facility] Address: [address] [place] [address] Performed By: #### 5 7021-8 ####[facility] LABIA [id number] [place] [address] [place] Lymphocytes/100 WBC (Bld) 21.2 % Normal [facility] Comment on above: Order Comment: Speci men Type: BLOOD SPECIMENOrdering Facility: [facility] Address: [address] [place] [address] Performed By: #### 5 7021-8 ####[facility] LABIA [id number] [place] [address] [place] MCH (RBC) [Entitic mass] 29.0 pg Normal 26.0-34.0 [facility] Comment on above: Order Comment: Speci men Type: BLOOD SPECIMENOrdering Facility: [facility] Address: [address] [place] [address] Performed By: #### 5 7021-8 ####[facility] LABIA [id number] [place] [id number] [place] MCHC (RBC) [Mass/Vol] 32.0 g/dL Normal 30.5-36.0 [facility] Comment on above: Order Comment: Speci men Type: BLOOD SPECIMENOrdering Facility: [facility] Address: [address] [place] [address] Performed By: #### 5 7021-8 ####[facility] LABIA [id number] [place] [address] [place] MCV (RBC) [Entitic vol] 90.6 fL Normal 80.0-100.0 [facility] Comment on above: Order Comment: Speci men Type: BLOOD SPECIMENOrdering Facility: [facility] Address: [address] [place] [address] Performed By: #### 5 7021-8 ####[facility] LABIA [id number] [place] [address] [place] Monocytes (Bld) [#/Vol] 0.84 10*3/uL Normal <0.87 [facility] Comment on above: Order Comment: Speci men Type: BLOOD SPECIMENOrdering Facility: [facility] Address: [address] [place] [address] Performed By: #### 5 7021-8 ####[facility] LABIA [id number] [address] [place] Monocytes/100 WBC (Bld) 7.9 % Normal [facility] Comment on above: Order Comment: Speci men Type: BLOOD SPECIMENOrdering Facility: [facility] Address: [address] [place] [address] Performed By: #### 5 7021-8 ####[facility] LABCLIA [id number] [place] [address] [place] Neutrophils (Bld) [#/Vol] 7.33 10*3/uL Normal 1.45-7.50 [facility] Comment on above: Order Comment: Speci men Type: BLOOD SPECIMENOrdering Facility: [facility] Address: [address] [place] [address] Performed By: #### 5 7021-8 ####[facility] LABCLIA [id number] [place] [address] [place] Neutrophils/100 WBC (Bld) 69.2 % Normal [facility] Comment on above: Order Comment: Speci men Type: BLOOD SPECIMENOrdering Facility: [facility] Address: [address] [place] [address] Performed By: #### 5 7021-8 ####[facility] LABCLIA [id number] [place] [address] [place] Nucleated RBC (Bld) [#/Vol] 10*3/uL Normal <0.01 [facility] Comment on above: Order Comment: Speci men Type: BLOOD SPECIMENOrdering Facility: [facility] Address: [address] [place] [address] Performed By: #### 5 7021-8 ####[facility] LABCLIA [id number] [place] [address] [place] Nucleated RBC/100 WBC (Bld) [Ratio] 0.0 /100 WBC Normal [facility] Comment on above: Order Comment: Speci men Type: BLOOD SPECIMENOrdering Facility: [facility] Address: [address] [place] [address] Performed By: #### 5 7021-8 ####[facility] LABCLIA [id number] [place] [address] [place] Platelet mean volume (Bld) [Entitic vol] 11.0 fL Normal 9.0-12.7 [facility] Comment on above: Order Comment: Speci men Type: BLOOD SPECIMENOrdering Facility: [facility] Address: [address] [place] [address] Performed By: #### 5 7021-8 ####[facility] LABCLIA [id number] [address] [address] [place] Platelets (Bld) [#/Vol] 177 10*3/uL Normal 150-400 [facility] Comment on above: Order Comment: Speci men Type: BLOOD SPECIMENOrdering Facility: [facility] Address: [address] [place] [address] Performed By: #### 5 7021-8 ####[facility] [id number] [place] [address] [place] RBC (Bld) [#/Vol] 4.66 10*6/uL Normal 3.90-5.20 [facility] Comment on above: Order Comment: Speci men Type: BLOOD SPECIMENOrdering Facility: [facility] Address: [address] [place] [address] Performed By: #### 5 7021-8 ####[facility] [id number] [place] [address] [place] WBC (Bld) [#/Vol] 10.58 10*3/uL Normal 3.70-11.00 [facility] Comment on above: Order Comment: Speci men Type: BLOOD SPECIMENOrdering Facility: [facility] Address: [address] [place] [address] Performed By: #### 5 7021-8 ####[facility] [id number] [place] [address] [place] CNCOon 01-03-2025 CNCO Letter Text Normal [facility] CNPTOUTREACHon 01-03-2025 CNPTOUTREACH Normal [facility] HBV DNA Qn (S)on 01-03-2025 HBV DNA LUIS M+probe Ql Not detected Normal Not detected [facility] Comment on above: Order Comment: Speci men Type: BLOOD SPECIMENOrdering Facility: [facility] Address: [address] [place] [address] Performed By: #### 1 1258-1 ####[facility] LABCLIA [id number] [place] [id number] [place] HBV core Ab Ser Qlon 025 HBV core Ab Ql (S) Negative Normal Negative [facility] Comment on above: Order Comment: Rand gonzalez Type: BLOOD SPECIMENOrdering Facility: [facility] Address: [address] [place] [address] Result Comment: No e vidence of current or past infection with Hepatitis B virus. Should recent infection be suspected, repeat testing may be considered 3-4 weeks after this draw. Performed By: #### 3 1204-1, 5195-3, 41982-9, 24332-0 ####[facility] LABIA [id number] [place] [address] [place] HBV core IgM Ser Qlon 2024 HBV core IgM Ql (S) Positive Abnormal Negative [facility] Comment on above: Order Comment: Rand gonzalez Type: BLOOD SPECIMENOrdering Facility: [facility] Address: [address] [place] [address] Result Comment: The result suggests recent acute infection with Hepatitis B virus. Non-specific reactivity is not uncommon with this test. HBV core IgM antibody may also remain elevated for extended periods after an acute bout of infection. Clinical correlation required. Performed By: #### 3 1204-1, 5195-3, 75063-1, 92202-9 ####[facility] LABIA [id number] [place] [address] [place] HBV e Ag SerPl Ql IAon 01-03 HBV e Ag IA Ql Negative Normal Negative [facility] Comment on above: Order Comment: Rand gonzalez Type: BLOOD SPECIMENOrdering Facility: [facility] Address: [address] [place] [address] Performed By: #### 1 3954-3, AHBE ####[facility] LABIA [id number] [place] [address] [place] HBV surface Ab Ql (S)on 12-12 HBV surface Ab Qn (S) <8.[address] [facility] Comment on above: Order Comment: Speci men Type: BLOOD SPECIMENOrdering Facility: [facility] Address: [address] [place] [address] Result Comment: <8 m IU/mL: No serological evidence of immunity to Hepatitis B Virus.>/= 8 to <12 mIU/mL: No serological evidence of immunity to Hepatitis B Virus.>/= 12 mIU/mL: Consistent with serological evidence of immunity to Hepatitis B Virus. Performed By: #### 3 1204-1, 5195-3, 16858-1, 15924-5 ####[facility] LABCLIA [id number] [place] [address] [place] HBV surface Ab Ser Qlon 12-12 HBV surface Ab Ql (S) Negative Normal [facility] Comment on above: Order Comment: Speci men Type: BLOOD SPECIMENOrdering Facility: [facility] Address: [address] [place] [address] Result Comment: No s erological evidence of immunity to Hepatitis B Virus. Performed By: #### 3 1204-1, 5195-3, 05854-4, 80448-0 ####[facility] LABCLIA [id number] [place] [address] [place] HBV surface Ag Ser Qlon 12-12 HBV surface Ag Ql (S) Negative Normal Negative [facility] Comment on above: Order Comment: Speci men Type: BLOOD SPECIMENOrdering Facility: [facility] Address: [address] [place] [address] Performed By: #### 3 1204-1, 5195-3, 44048-6, 75157-2 ####[facility] LABCLIA [id number] [place] [address] [place] HEP BE ANTIBODYon 01-03-2025 HBV e Ab IA Ql Negative Normal Negative [facility] Comment on above: Order Comment: Speci men Type: BLOOD SPECIMENOrdering Facility: [facility] Address: [address] [place] [address] Result Comment: This test should only be used in patients with a previously known and/or concurrent positive HBsAG result. Along with HBeAG test, Hepatitis B e antibody test is used for monitoring the natural history of Hepatitis B virus infection and prognostication. Clinical correlation is required. Performed By: #### 1 3954-3, RILEYBE ####[facility] LABCLIA [id number] [place] [address] [place] CNPNon 12-30-2024 CNPN Normal [facility] CNPTOUTREACHon 12-30-2024 CNPTOUTREACH Normal [facility] Basic metabolic 2000 panelon 12-28-2024 Anion gap [Moles/Vol] 15 mmol/L Normal 8-15 [facility] Comment on above: Order Comment: Speci men Type: BLOOD SPECIMENOrdering Facility: [facility] Address: [address] [place] [address] Performed By: #### 2 4325-3, 98700-0 ####[facility] LABCLIA [id number] [place] [address] [place] Calcium [Mass/Vol] 9.3 mg/dL Normal 8.5-10.2 [facility] Comment on above: Order Comment: Speci men Type: BLOOD SPECIMENOrdering Facility: [facility] Address: [address] [place] [address] Performed By: #### 2 4325-3, 35080-2 ####[facility] LABCLIA [id number] [place] [id number] [place] Chloride [Moles/Vol] 94 mmol/L Low 98-107 [facility] Comment on above: Order Comment: Speci men Type: BLOOD SPECIMENOrdering Facility: [facility] Address: [address] [place] [address] Performed By: #### 2 4325-3, 47824-8 ####[facility] LABCLIA [id number] [place] [id number] [place] CO2 [Moles/Vol] 20 mmol/L Low 22-30 [facility] Comment on above: Order Comment: Speci men Type: BLOOD SPECIMENOrdering Facility: [facility] Address: [address] [place] [address] Performed By: #### 2 4325-3, 43501-5 ####[facility] LABIA [id number] [place] [id number] [place] Creatinine [Mass/Vol] 0.52 mg/dL Low 0.58-0.96 [facility] Comment on above: Order Comment: Speci men Type: BLOOD SPECIMENOrdering Facility: [facility] Address: [address] [place] [address] Performed By: #### 2 4325-3, 01936-7 ####[facility] [id number] [place] [address] [place] Creatinine and Glomerular filtration rate.predicted panel (S/P/Bld) 106 mL/min/1.73m??? Normal >=60 [facility] Comment on above: Order Comment: Speci men Type: BLOOD SPECIMENOrdering Facility: [facility] Address: [address] [place] [address] Result Comment: Gia mated Glomerular Filtration Rate [...] actual GFR. Performed By: #### 2 4325-3, 99000-7 ####[facility] LABCLIA [id number] [address] [address] [place] Glucose [Mass/Vol] 196 mg/dL High 74-99 [facility] Comment on above: Order Comment: Speci men Type: BLOOD SPECIMENOrdering Facility: [facility] Address: [address] [place] [address] Result Comment: The [place] Diabetes Association (ADA) provides guidance for cutoff [...] Standards of Medical Care in Diabetes 2016, [place] Diabetes Association. Diabetes Care. 2016.39(Suppl 1). Performed By: #### 2 4325-3, 18346-4 ####[facility] LABCLIA [id number] [place] [address] [place] Potassium [Moles/Vol] 4.4 mmol/L Normal 3.7-5.1 [facility] Comment on above: Order Comment: Speci men Type: BLOOD SPECIMENOrdering Facility: [facility] Address: [address] [place] [address] Performed By: #### 2 4325-3, 26715-6 ####[facility] LABCLIA [id number] [place] [id number] [place] Sodium [Moles/Vol] 129 mmol/L Low 136-144 [facility] Comment on above: Order Comment: Speci men Type: BLOOD SPECIMENOrdering Facility: [facility] Address: [address] [place], [place] [address] Performed By: #### 2 53, 76184-7 ####[facility] LABCLIA [id number] [place] [id number] [place] Urea nitrogen [Mass/Vol] 13 mg/dL Normal 7-21 [facility] Comment on above: Order Comment: Speci men Type: BLOOD SPECIMENOrdering Facility: [facility] Address: [address] [place] [address] Performed By: #### 2 4325-3, 77823-2 ####[facility] LABCLIA [id number] [place] [address] [place] CBC W Auto Differential pane l (Bld)on 12-28-2024 Basophils (Bld) [#/Vol] 0.07 10*3/uL Normal <0.11 [facility] Comment on above: Order Comment: Speci men Type: BLOOD SPECIMENOrdering Facility: [facility] Address: [address] [place] [address] Performed By: #### 5 7021-8 ####[facility] LABCLIA [id number] [place] [address] [place] Basophils/100 WBC (Bld) 0.6 % Normal [facility] Comment on above: Order Comment: Speci men Type: BLOOD SPECIMENOrdering Facility: [facility] Address: [address] [place] [address] Performed By: #### 5 7021-8 ####[facility] LABCLIA [id number] [place] [address] [place] Differential cell count method Nom (Bld) Auto Normal [facility] Comment on above: Order Comment: Speci men Type: BLOOD SPECIMENOrdering Facility: [facility] Address: [address] [place] [address] Performed By: #### 5 7021-8 ####[facility] LABCLIA [id number] [place] [id number] [place] Eosinophils (Bld) [#/Vol] 0.03 10*3/uL Normal <0.46 [facility] Comment on above: Order Comment: Speci men Type: BLOOD SPECIMENOrdering Facility: [facility] Address: [address] [place] [address] Performed By: #### 5 7021-8 ####[facility] LABCLIA [id number] [address], [place] [address] [place] Eosinophils/100 WBC (Bld) 0.3 % Normal [facility] Comment on above: Order Comment: Speci men Type: BLOOD SPECIMENOrdering Facility: [facility] Address: [address] [place] [address] Performed By: #### 5 7021-8 ####[facility] LABCLIA [id number] [address], [place] [address] [place] Erythrocyte distribution width (RBC) [Ratio] 14.1 % Normal 11.5-15.0 [facility] Comment on above: Order Comment: Speci men Type: BLOOD SPECIMENOrdering Facility: [facility] Address: [address] [place] [address] Performed By: #### 5 7021-8 ####[facility] LABIA [id number] [place] [address] [place] Hematocrit (Bld) [Volume fraction] 42.9 % Normal 36.0-46.0 [facility] Comment on above: Order Comment: Speci men Type: BLOOD SPECIMENOrdering Facility: [facility] Address: [address] [place] [address] Performed By: #### 5 7021-8 ####[facility] LABCLIA [id number] [place] [address] [place] Hemoglobin (Bld) [Mass/Vol] 14.1 g/dL Normal 11.5-15.5 [facility] Comment on above: Order Comment: Speci men Type: BLOOD SPECIMENOrdering Facility: [facility] Address: [address] [place] [address] Performed By: #### 5 7021-8 ####[facility] LABCLIA [id number] [address], [place] [address] [place] Immature granulocytes (Bld) [#/Vol] 0.12 10*3/uL High <0.10 [facility] Comment on above: Order Comment: Speci men Type: BLOOD SPECIMENOrdering Facility: [facility] Address: [address] [place] [address] Performed By: #### 5 7021-8 ####[facility] LABCLIA [id number] [place] [address] [place] Immature granulocytes/100 WBC (Bld) 1.0 % Normal [facility] Comment on above: Order Comment: Speci men Type: BLOOD SPECIMENOrdering Facility: [facility] Address: [address] [place] [address] Performed By: #### 5 7021-8 ####[facility] LABCLIA [id number] [place] [address] [place] Lymphocytes (Bld) [#/Vol] 2.70 10*3/uL Normal 1.00-4.00 [facility] Comment on above: Order Comment: Speci men Type: BLOOD SPECIMENOrdering Facility: [facility] Address: [address] [place] [address] Performed By: #### 5 7021-8 ####[facility] LABCLIA [id number] [place] [address] [place] Lymphocytes/100 WBC (Bld) 23.1 % Normal [facility] Comment on above: Order Comment: Speci men Type: BLOOD SPECIMENOrdering Facility: [facility] Address: [address] [place] [address] Performed By: #### 5 7021-8 ####[facility] LABCLIA [id number] [place] [address] [place] MCH (RBC) [Entitic mass] 29.3 pg Normal 26.0-34.0 [facility] Comment on above: Order Comment: Speci men Type: BLOOD SPECIMENOrdering Facility: [facility] Address: [address] [place] [address] Performed By: #### 5 7021-8 ####[facility] LABCLIA [id number] [address], [place] [address] [place] MCHC (RBC) [Mass/Vol] 32.9 g/dL Normal 30.5-36.0 [facility] Comment on above: Order Comment: Speci men Type: BLOOD SPECIMENOrdering Facility: [facility] Address: [address] [place] [address] Performed By: #### 5 7021-8 ####[facility] LABCLIA [id number] [address], [place] [address] [place] MCV (RBC) [Entitic vol] 89.2 fL Normal 80.0-100.0 [facility] Comment on above: Order Comment: Speci men Type: BLOOD SPECIMENOrdering Facility: [facility] Address: [address] [place] [address] Performed By: #### 5 7021-8 ####[facility] LABIA [id number] [address], [place] [address] [place] Monocytes (Bld) [#/Vol] 0.56 10*3/uL Normal <0.87 [facility] Comment on above: Order Comment: Speci men Type: BLOOD SPECIMENOrdering Facility: [facility] Address: [address] [place] [address] Performed By: #### 5 7021-8 ####[facility] LABCLIA [id number] [place] [id number] [place] Monocytes/100 WBC (Bld) 4.8 % Normal [facility] Comment on above: Order Comment: Speci men Type: BLOOD SPECIMENOrdering Facility: [facility] Address: [address] [place] [address] Performed By: #### 5 7021-8 ####[facility] LABCLIA [id number] [place] [id number] [place] Neutrophils (Bld) [#/Vol] 8.22 10*3/uL High 1.45-7.50 [facility] Comment on above: Order Comment: Speci men Type: BLOOD SPECIMENOrdering Facility: [facility] Address: [address] [place] [address] Performed By: #### 5 7021-8 ####[facility] LABCLIA [id number] [facility] [address] [place] Neutrophils/100 WBC (Bld) 70.2 % Normal [facility] Comment on above: Order Comment: Speci men Type: BLOOD SPECIMENOrdering Facility: [facility] Address: [address] [place] [address] Performed By: #### 5 7021-8 ####[facility] LABCLIA [id number] [place], [place] [address] [place] Nucleated RBC (Bld) [#/Vol] 10*3/uL Normal <0.01 [facility] Comment on above: Order Comment: Speci men Type: BLOOD SPECIMENOrdering Facility: [facility] Address: [address] [place] [address] Performed By: #### 5 7021-8 ####[facility] LABCLIA [id number] [place] [address] [place] Nucleated RBC/100 WBC (Bld) [Ratio] 0.0 /100 WBC Normal [facility] Comment on above: Order Comment: Speci men Type: BLOOD SPECIMENOrdering Facility: [facility] Address: [address] [place] [address] Performed By: #### 5 7021-8 ####[facility] LABIA [id number] [place] [address] [place] Platelet mean volume (Bld) [Entitic vol] 11.9 fL Normal 9.0-12.7 [facility] Comment on above: Order Comment: Speci men Type: BLOOD SPECIMENOrdering Facility: [facility] Address: [address] [place] [address] Performed By: #### 5 7021-8 ####[facility] LABIA [id number] [place] [address] [place] Platelets (Bld) [#/Vol] 144 10*3/uL Low 150-400 [facility] Comment on above: Order Comment: Speci men Type: BLOOD SPECIMENOrdering Facility: [facility] Address: [address] [place] [address] Performed By: #### 5 7021-8 ####[facility] [id number] [place] [address] [place] RBC (Bld) [#/Vol] 4.81 10*6/uL Normal 3.90-5.20 [facility] Comment on above: Order Comment: Speci men Type: BLOOD SPECIMENOrdering Facility: [facility] Address: [address] [place] [address] Performed By: #### 5 7021-8 ####[facility] [id number] [place] [address] [place] WBC (Bld) [#/Vol] 11.70 10*3/uL High 3.70-11.00 [facility] Comment on above: Order Comment: Speci men Type: BLOOD SPECIMENOrdering Facility: [facility] Address: [address] [place] [address] Performed By: #### 5 7021-8 ####[facility] [id number] [place] [id number] [place] CNOVon 12-28-2024 CNOV Normal [facility] HAV IgM Ser Qlon 12-28-2024 HAV IgM Ql (S) Negative Normal Negative [facility] Comment on above: Order Comment: Speci men Type: BLOOD SPECIMENOrdering Facility: [facility] Address: [address] [place] [address] Result Comment: No e vidence of recent infection with Hepatitis A virus. Performed By: #### 2 2314-9, 59562-7, 5194-3 ####[facility] LABCLIA [id number] [place] [address] [place] HBV core IgM Ser Qlon 2024 HBV core IgM Ql (S) Positive Abnormal Negative [facility] Comment on above: Order Comment: Speci men Type: BLOOD SPECIMENOrdering Facility: [facility] Address: [address] [place] [address] Result Comment: The result suggests recent acute infection with Hepatitis B virus. Non-specific reactivity is not uncommon with this test. HBV core IgM antibody may also remain elevated for extended periods after an acute bout of infection. Clinical correlation required. Performed By: #### 2 2314-9, 27417-9, 3 ####[facility] LABCLIA [id number] [address] [place] HBV surface Ag Ser Qlon 12-11 HBV surface Ag Ql (S) Negative Normal Negative [facility] Comment on above: Order Comment: Rand gonzalez Type: BLOOD SPECIMENOrdering Facility: [facility] Address: [address] [place] [address] Performed By: #### 2 2314-9, 57246-8, 3 ####[facility] LABCLIA [id number] [address] [place] HCV RNA LUIS M+probe Qnon 12-28 HCV RNA LUIS M+probe Ql Not detected Normal Not detected [facility] Comment on above: Order Comment: Rand gonzalez Type: BLOOD SPECIMENOrdering Facility: [facility] Address: [address] [place] [address] Performed By: #### 1 1011-4 ####[facility] LABCLIA [id number] [place] [address] [place] Hepatic function 2000 panelo n 12-28-2024 Albumin [Mass/Vol] 4.3 g/dL Normal 3.9-4.9 [facility] Comment on above: Order Comment: Speci men Type: BLOOD SPECIMENOrdering Facility: [facility] Address: [address] [place] [place] [id number] Performed By: #### 2 4325-3, 44626-4 ####[facility] LABCLIA [id number] [place] [address] [place] ALP [Catalytic activity/Vol] 123 U/L Normal 34-123 [facility] Comment on above: Order Comment: Speci men Type: BLOOD SPECIMENOrdering Facility: [facility] Address: [address] [place] [address] Performed By: #### 2 4325-3, 30746-2 ####[facility] LABCLIA [id number] [place] [address] [place] ALT [Catalytic activity/Vol] 32 U/L Normal 7-38 [facility] Comment on above: Order Comment: Speci men Type: BLOOD SPECIMENOrdering Facility: [facility] Address: [address] [place] [address] Performed By: #### 2 4325-3, 69077-7 ####[facility] LABCLIA [id number] [place] [address] [place] AST [Catalytic activity/Vol] 17 U/L Normal 13-35 [facility] Comment on above: Order Comment: Speci men Type: BLOOD SPECIMENOrdering Facility: [facility] Address: [address] [place], [place] [id number] Performed By: #### 2 4325-3, 28054-2 ####[facility] LABCLIA [id number] [place] [id number] [place] Bilirubin [Mass/Vol] 0.2 mg/dL Normal 0.2-1.3 [facility] Comment on above: Order Comment: Speci men Type: BLOOD SPECIMENOrdering Facility: [facility] Address: [address] [place], [place] [address] Performed By: #### 2 4325-3, 17938-7 ####[facility] LABCLIA [id number] [place] [address] [place] Bilirubin.conjugated [Mass/Vol] mg/dL Normal <0.3 [facility] Comment on above: Order Comment: Speci men Type: BLOOD SPECIMENOrdering Facility: [facility] Address: [address] [place] [address] Performed By: #### 2 4325-3, 95665-5 ####[facility] LABCLIA [id number] [place] [address] [place] Protein [Mass/Vol] 7.5 g/dL Normal 6.3-8.0 [facility] Comment on above: Order Comment: Speci men Type: BLOOD SPECIMENOrdering Facility: [facility] Address: [address] [place] [address] Performed By: #### 2 4325-3, 79927-7 ####[facility] LABCLIA [id number] [place] [address] [place] Culture, Blood (WB)on 2024 CUB Blood cultures x2, f rom two different sites No growth in 5 days. Normal [facility] Comment on above: Performed By: #### L 100.0100 #### [facility] [address] [place], [address] Performed By: #### L 500.4050, L501.2450, L100.0500, L501.4020 #### [facility] [address] [place], [address] Urine Cultureon 12-23-2024 URC Mixed Gram Pos Gram Neg Org Baskin Count <1000 MIXC Mixed contaminants. Submit a new specimen if indicated. Normal [facility] Comment on above: Performed By: #### L 500.4050, L501.2450, L100.0500, L501.4020 #### [facility] [address] [place], [address] 12 Lead EKGon 12-21-2024 12 Lead EKG [facility] Cardiovascular Services [address] [place] [address] 12 Lead EKG 12/21/24 0857 MR#: [id number] Acct: [id number] Name: BRENDA LE Rep #: [id number] : 1965 59 From: Gary Bose MD Attending Dr: Status: DEP ER [...] Abnormal ECG Confirmed by TAMMY SANDERS, GLORIA ([id number]), department editor CRISTAL OTT ([id number]) on 12/27/2024 11:14:51 AM Referred By: Confirmed By: GLORIA BOSE MD 12/27/24 1114 Date Gary Bose MD CC: ESEQUIEL Salmon; Dr. Babak Garcia DO Signed Normal [facility] Absolute lymphocyte countOrd ered By: Babak Garcia on 12-21-2024 Lymphocytes Auto (Unsp spec) [#/Vol] 1.06 10*3/uL 0.83-4.51 [facility] Absolute neutrophil countOrd ered By: Babak Garcia on 12-21-2024 Neutrophils (Bld) [#/Vol] 10.6 10*3/uL High 2.0-7.7 [facility] Activated partial thrombopla stin time (aPTT) in platelet poor plasma by coagulation aOrdered By: Babak Garcia on 12-21-2024 aPTT Coag (PPP) [Time] 35.4 s 24.1-36.2 [facility] Anion gap in Serum or Plasma Ordered By: Babak Garcia on 12-21-2024 Anion gap [Moles/Vol] 11 mmol/L 5-15 [facility] Automated blood erythrocyte countOrdered By: Babak Garcia on 12-21-2024 RBC (Bld) [#/Vol] 4.30 10*6/uL Normal 4.2-5.4 [facility] Comment on above: Performed By: #### L 100.0100 #### [facility] [address] [place], [address] Automated blood hematocrit ( percentage)Ordered By: Babak Garcia on 12-21-2024 Hematocrit (Bld) [Volume fraction] 38.1 % Normal 37-47 [facility] Comment on above: Performed By: #### L 100.0100 #### [facility] [address] [place], [address] Automated lymphocyte count a s percentage of total leukocytesOrdered By: Babak Garcia on 12-21-2024 Lymphocytes/100 WBC (Bld) 8.6 % Low - [facility] Comment on above: Performed By: #### L 100.0100 #### [facility] [address] [place], [address] Lymphocytes/100 WBC Auto (Unsp spec) 8.6 % Low - [facility] BUN/creatinine ratioOrdered By: Babak Garcia on 12-21-2024 Urea nitrogen/Creatinine [Mass ratio] 19.2 mg/mg 10-20 [facility] Basophil percentageOrdered B y: Babak Garcia on 12-21-2024 Basophils/100 WBC (Bld) 0.2 % Normal 0-1 [facility] Comment on above: Performed By: #### L 100.0100 #### [facility] [address] [place], [address] Bilirubin Test strip Ql (U)O rdered By: Babak Garcia on 12-21-2024 Bilirubin Ql (U) Negative Negative [facility] Bilirubin, totalOrdered By: Babak Jose on 12-21-2024 Bilirubin [Mass/Vol] 0.29 mg/dL Normal 0.00-1.30 [facility] Comment on above: Performed By: #### L 100.0100 #### [facility] [address] [place], [place], [id number] ([address] Blood cultureOrdered By: Rogelio Garcia on 12-21-2024 Bacteria identified Cx Nom (Bld) No growth in 5 days. [facility] Bacteria identified Cx Nom (Bld) No growth in 5 days. [facility] CBC W/Diff, Automatedon 12-11 Absolute Lymph 1.06 X10 3/uL Normal 0.83-4.51 [facility] Comment on above: Performed By: #### L 100.0100 #### [facility] [address] [place], [place], [id number] ([address] Absolute Neut 10.6 X10 3/uL High 2.0-7.7 [facility] Comment on above: Performed By: #### L 100.0100 #### [facility] [address] [place], [address] IG% 0.400 Normal 0.0-0.9 [facility] Comment on above: Result Comment: IG% - Immature Granulocytes (promyelocytes, myelocytes and metamyelocytes) > 1% indicates that a LEFT SHIFT is Present. Performed By: #### L 100.0100 #### [facility] [address] [place], [address] Nucleated RBC (Bld) [#/Vol] 0 10*3/uL Normal 0-5 [facility] Comment on above: Performed By: #### L 100.0100 #### [facility] [address] [place], [address] (539 RDW SD 46.4 fl High 35.1-43.9 [facility] Comment on above: Performed By: #### L 100.0100 #### [facility] [address] [place], [address] Absolute Lymph 1.05 X10 3/uL Normal 0.83-4.51 [facility] Comment on above: Result Comment: This specimen has been REJECTED due to Laboratory criteria: Contaminated/Leaked. juliocesar has been notified of need of recollection. 12/21/24 0957 Issac L [facility] Performed By: #### L 100.0100 #### [facility] [address] [place], [address] Absolute Neut 10.3 X10 3/uL High 2.0-7.7 [facility] Comment on above: Result Comment: This specimen has been REJECTED due to Laboratory criteria: Contaminated/Leaked. juliocesar has been notified of need of recollection. 12/21/2457 Iss[facility] L [facility] Performed By: #### L 100.0100 #### [facility] [address] [place], [address] BASO# 0.05 X10 3/uL Normal [facility] Comment on above: Result Comment: This specimen has been REJECTED due to Laboratory criteria: Contaminated/Leaked. juliocesar has been notified of need of recollection. 12/21/2457 [facility] L [facility] Performed By: #### L 100.0100 #### [facility] [address] [place], [address] Basophils/100 WBC (Bld) 0.4 % Normal 0-1 [facility] Comment on above: Result Comment: This specimen has been REJECTED due to Laboratory criteria: Contaminated/Leaked. juliocesar has been notified of need of recollection. 12/21/24 0957 Iss[facility] L [facility] Performed By: #### L 100.0100 #### [facility] [address] [place], [address] EOS# 0.01 X10 3/uL Normal [facility] Comment on above: Result Comment: This specimen has been REJECTED due to Laboratory criteria: Contaminated/Leaked. veronikae has been notified of need of recollection. 12/21/24956 Issac Chawla [facility] Performed By: #### L 100.0100 #### [facility] [address] [place], [place], [id number] (231) Erythrocyte distribution width (RBC) [Ratio] 14.4 % Normal 11.6-14.6 [facility] Comment on above: Result Comment: This specimen has been REJECTED due to Laboratory criteria: Contaminated/Leaked. lorilie has been notified of need of recollection. 12/21/24956 Issac Chawla [facility] Performed By: #### L 100.0100 #### [facility] [address] [place], [address] Hematocrit (Bld) [Volume fraction] 40.3 % Normal 37-47 [facility] Comment on above: Result Comment: This specimen has been REJECTED due to Laboratory criteria: Contaminated/Leaked. lorilie has been notified of need of recollection. 12/21/24956 Issac Chawla [facility] Performed By: #### L 100.0100 #### [facility] [address] [place], [address] Hemoglobin (Bld) [Mass/Vol] 13.3 g/dL Normal 12.0-15.0 [facility] Comment on above: Result Comment: This specimen has been REJECTED due to Laboratory criteria: Contaminated/Leaked. lorilie has been notified of need of recollection. 12/21/24956 Issac Chawla [facility] Performed By: #### L 100.0100 #### [facility] [address] [place], [address] IG# 0.070 X10 3/uL High 0.0-0.0 [facility] Comment on above: Result Comment: This specimen has been REJECTED due to Laboratory criteria: Contaminated/Leaked. lorilie has been notified of need of recollection. 12/21/24956 Issac Chawla [facility] Performed By: #### L 100.0100 #### [facility] [address] [place], [address] IG% 0.600 Normal 0.0-0.9 [facility] Comment on above: Result Comment: This specimen has been REJECTED due to Laboratory criteria: Contaminated/Leaked. juliocesar has been notified of need of recollection. 12/21/24956 Issac L [facility] IG% - Immature Granulocytes (promyelocytes, myelocytes and metamyelocytes) > 1% indicates that a LEFT SHIFT is Present. Performed By: #### L 100.0100 #### [facility] [address] [place], [address] LYMPH# 1.05 X10 3/ul Normal 0.83-4.51 [facility] Comment on above: Result Comment: This specimen has been REJECTED due to Laboratory criteria: Contaminated/Leaked. juliocesar has been notified of need of recollection. 12/21/24956 Issac L [facility] Performed By: #### L 100.0100 #### [facility] [address] [place], [address] Lymphocytes/100 WBC (Bld) 8.7 % Low 19-41 [facility] Comment on above: Result Comment: This specimen has been REJECTED due to Laboratory criteria: Contaminated/Leaked. juliocesar has been notified of need of recollection. 12/21/24956 Issac L [facility] Performed By: #### L 100.0100 #### [facility] [address] [place], [address] MCH (RBC) [Entitic mass] 29.2 pg Normal 27.0-32.0 [facility] Comment on above: Result Comment: This specimen has been REJECTED due to Laboratory criteria: Contaminated/Leaked. juliocesar has been notified of need of recollection. 12/21/24956 Issac L [facility] Performed By: #### L 100.0100 #### [facility] [address] [place], [address] MCHC (RBC) [Mass/Vol] 33.0 g/dL Normal 32-36 [facility] Comment on above: Result Comment: This specimen has been REJECTED due to Laboratory criteria: Contaminated/Leaked. juliocesar has been notified of need of recollection. 12/21/24 0957 Issac L [facility] Performed By: #### L 100.0100 #### [facility] [address] [place], [address] MCV (RBC) [Entitic vol] 88.4 fL Normal 81-99 [facility] Comment on above: Result Comment: This specimen has been REJECTED due to Laboratory criteria: Contaminated/Leaked. juliocesar has been notified of need of recollection. 12/21/2457 Issac L [facility] Performed By: #### L 100.0100 #### [facility] [address] [place], [address] MONO # 0.49 X10 3/uL Normal [facility] Comment on above: Result Comment: This specimen has been REJECTED due to Laboratory criteria: Contaminated/Leaked. juliocesar has been notified of need of recollection. 12/21/24956 Iss[facility] L [facility] Performed By: #### L 100.0100 #### [facility] [address] [place], [address] Monocytes/100 WBC (Bld) 4.1 % Normal 0-10 [facility] Comment on above: Result Comment: This specimen has been REJECTED due to Laboratory criteria: Contaminated/Leaked. juliocesar has been notified of need of recollection. 12/21/24956 Iss[facility] L [facility] Performed By: #### L 100.0100 #### [facility] [address] [place], [address] Neutrophil # 10.34 X10 3/uL High 2.7-7.7 [facility] Comment on above: Result Comment: This specimen has been REJECTED due to Laboratory criteria: Contaminated/Leaked. juliocesar has been notified of need of recollection. 12/21/2457 [facility] L [facility] Performed By: #### L 100.0100 #### [facility] [address] [place], [address] Neutrophils/100 WBC (Bld) 86.1 % High 47-70 [facility] Comment on above: Result Comment: This specimen has been REJECTED due to Laboratory criteria: Contaminated/Leaked. juliocesar has been notified of need of recollection. 12/21/24 0957 Iss[facility] L [facility] Performed By: #### L 100.0100 #### [facility] [address] [place], [address] Nucleated RBC (Bld) [#/Vol] 0 10*3/uL Normal 0-5 [facility] Comment on above: Result Comment: This specimen has been REJECTED due to Laboratory criteria: Contaminated/Leaked. juliocesar has been notified of need of recollection. 12/21/24956 [facility] Performed By: #### L 100.0100 #### [facility] [address] [place], [address] Platelet mean volume (Bld) [Entitic vol] 9.9 fL Normal 6.2-12.0 [facility] Comment on above: Result Comment: This specimen has been REJECTED due to Laboratory criteria: Contaminated/Leaked. juliocesar has been notified of need of recollection. 12/21/24956 [facility] Performed By: #### L 100.0100 #### [facility] [address] [place], [address] Platelets (Bld) [#/Vol] 201 10*3/uL Normal 150-450 [facility] Comment on above: Result Comment: This specimen has been REJECTED due to Laboratory criteria: Contaminated/Leaked. juliocesar has been notified of need of recollection. 12/21/24 09 Iss[facility] L [facility] Performed By: #### L 100.0100 #### [facility] [address] [place], [address] RBC (Bld) [#/Vol] 4.56 10*6/uL Normal 4.2-5.4 [facility] Comment on above: Result Comment: This specimen has been REJECTED due to Laboratory criteria: Contaminated/Leaked. juliocesar has been notified of need of recollection. 12/21/24 0957 Issac L [facility] Performed By: #### L 100.0100 #### [facility] [address] [place], [address] RDW SD 46.5 fl High 35.1-43.9 [facility] Comment on above: Result Comment: This specimen has been REJECTED due to Laboratory criteria: Contaminated/Leaked. juliocesar has been notified of need of recollection. 12/21/24 0957 Iss[facility] L [facility] Performed By: #### L 100.0100 #### [facility] [address] [place], [address] WBC (Bld) [#/Vol] 12.0 10*3/uL High 4.4-11.0 [facility] Comment on above: Result Comment: This specimen has been REJECTED due to Laboratory criteria: Contaminated/Leaked. juliocesar has been notified of need of recollection. 12/21/24 0957 Issac L [facility] Performed By: #### L 100.0100 #### [facility] [address] [place], [address] Carbon dioxide, total [Moles /volume] in Central venous bloodOrdered By: Babak Garcia on 12-21-2024 CO2 [Moles/Vol] 22.6 mmol/L Normal 21.0-32.0 [facility] Comment on above: Performed By: #### L 100.0100 #### [facility] [address] [place], [address] Chest PA and Lateralon 12-21 Chest PA and Lateral [facility] Imaging Services [address] [place] [address] Chest PA and Lateral MR#: [id number] Acct: [id number] Name: BRENDA LE Rep #: [id number] : 1965 F 59 From: Ana Lilia Carlos MD PCP: Shelia Salmon, DENTAL MOLD MAKER Status: REG ER Study: Chest PA and Lateral Date of Exam: 12/21/24 Exam# [id number] Ordering Dr: Babak Garcia DO EXAM: XR Chest, 2 Views CLINICAL INDICATION: SOB TECHNIQUE: Frontal and lateral views of the chest. COMPARISON: No relevant prior studies available. FINDINGS: LUNGS AND PLEURAL SPACES: Pulmonary venous congestion. No consolidation. No pneumothorax. HEART: Unremarkable. No cardiomegaly. MEDIASTINUM: Unremarkable. Normal mediastinal contour. BONES/JOINTS: Unremarkable. No acute fracture. RAD/Chest PA and Lateral IMPRESSION: Pulmonary venous congestion. Reading [facility] CC: DENTAL MOLD MAKER Shelia Salmon; Dr. Babak Garcia DO [employer] Consultant: Signed Normal [facility] Chloride assayOrdered By: Rory Garcia on 12-21-2024 Chloride [Moles/Vol] 102 mmol/L Normal 98-108 [facility] Comment on above: Performed By: #### L 100.0100 #### [facility] [address] [facility] [address] Comprehensive Metabolic Prof ilon 12-21-2024 ALK PHOS 108 U/L High 35-104 [facility] Comment on above: Performed By: #### L 100.0100 #### [facility] [address] [facility] [address] BUN/CRE 19.2 RATIO Normal 10-20 [facility] Comment on above: Performed By: #### L 100.0100 #### [facility] [address] [facility] [address] ECRCL 127.81 ml/min Normal 50-250 [facility] Comment on above: Performed By: #### L 100.0100 #### [facility] [address] [place], [address] GAP 11 Normal 5-15 [facility] Comment on above: Performed By: #### L 100.0100 #### [facility] [address] [place], [address] T PROT 6.3 g/dL Normal 5.9-8.4 [facility] Comment on above: Performed By: #### L 100.0100 #### [facility] [address] [place], [address] ALB Normal 3.4-4.8 [facility] Comment on above: Result Comment: This specimen has been REJECTED due to Laboratory criteria: Contaminated/Leaked. juliocesar has been notified of need of recollection. 12/21/2458 Issac Moreno Performed By: #### L 100.0100 #### [facility] [place], [address] ALK PHOS Normal 35-104 [facility] Comment on above: Result Comment: This specimen has been REJECTED due to Laboratory criteria: Contaminated/Leaked. juliocesar has been notified of need of recollection. 12/21/24957 Issac Moreno Performed By: #### L 100.0100 #### [facility] [address] [place], [address] ALT Normal <=34 [facility] Comment on above: Result Comment: This specimen has been REJECTED due to Laboratory criteria: Contaminated/Leaked. juliocesar has been notified of need of recollection. 12/21/24 0958 Issac Chawla White Performed By: #### L 100.0100 #### [facility] [address] [place], [address] AST Normal <=31 [facility] Comment on above: Result Comment: This specimen has been REJECTED due to Laboratory criteria: Contaminated/Leaked. juliocesar has been notified of need of recollection. 12/21/2458 Issac Moreno Performed By: #### L 100.0100 #### [facility] [address] [place], [address] BUN Normal 4-19 [facility] Comment on above: Result Comment: This specimen has been REJECTED due to Laboratory criteria: Contaminated/Leaked. juliocesar has been notified of need of recollection. 12/21/24957 Issac Moreno Performed By: #### L 100.0100 #### [facility] [address] [facility] [address] BUN/CRE Normal 10-20 [facility] Comment on above: Result Comment: This specimen has been REJECTED due to Laboratory criteria: Contaminated/Leaked. juliocesar has been notified of need of recollection. 12/21/24957 Issac Chawla White Performed By: #### L 100.0100 #### [facility] [facility] [address] Calcium Normal 7.6-11.0 [facility] Comment on above: Result Comment: This specimen has been REJECTED due to Laboratory criteria: Contaminated/Leaked. juliocesar has been notified of need of recollection. 12/21/24957 Issac Moreno Performed By: #### L 100.0100 #### [facility] [facility] [address] CL Normal 98-108 [facility] Comment on above: Result Comment: This specimen has been REJECTED due to Laboratory criteria: Contaminated/Leaked. juliocesar has been notified of need of recollection. 12/21/24957 Issac Chawla White Performed By: #### L 100.0100 #### [facility] [address] [facility] [address] CO2 Normal 21.0-32.0 [facility] Comment on above: Result Comment: This specimen has been REJECTED due to Laboratory criteria: Contaminated/Leaked. juliocesar has been notified of need of recollection. 12/21/24957 Issac Denton Josh Performed By: #### L 100.0100 #### [facility] [address] [place], [address] CREAT,SERUM Normal 0.70-1.20 [facility] Comment on above: Result Comment: This specimen has been REJECTED due to Laboratory criteria: Contaminated/Leaked. juliocesar has been notified of need of recollection. 12/21/24957 Issac Chawla White Performed By: #### L 100.0100 #### [facility] [address] [place], [address] eGFR Normal >60 [facility] Comment on above: Result Comment: This specimen has been REJECTED due to Laboratory criteria: Contaminated/Leaked. juliocesar has been notified of need of recollection. 12/21/24957 Issac Chawla White Performed By: #### L 100.0100 #### [facility] [address] [facility] [address] GAP Normal 5-15 [facility] Comment on above: Result Comment: This specimen has been REJECTED due to Laboratory criteria: Contaminated/Leaked. juliocesar has been notified of need of recollection. 12/21/24957 Issac Chawla White Performed By: #### L 100.0100 #### [facility] [address] [place], [address] GLU Normal 70-99 [facility] Comment on above: Result Comment: This specimen has been REJECTED due to Laboratory criteria: Contaminated/Leaked. juliocesar has been notified of need of recollection. 12/21/24957 Issac Chawla White Performed By: #### L 100.0100 #### [facility] [address] [place], [address] Potassium Normal 3.3-5.1 [facility] Comment on above: Result Comment: This specimen has been REJECTED due to Laboratory criteria: Contaminated/Leaked. juliocesar has been notified of need of recollection. 12/21/24957 Issac Moreno Performed By: #### L 100.0100 #### [facility] [address] [place], [address] T BILI Normal 0.00-1.30 [facility] Comment on above: Result Comment: This specimen has been REJECTED due to Laboratory criteria: Contaminated/Leaked. juliocesar has been notified of need of recollection. 12/21/24 0958 Issac Moreno Performed By: #### L 100.0100 #### [facility] [address] [place], [address] T PROT Normal 5.9-8.4 [facility] Comment on above: Result Comment: This specimen has been REJECTED due to Laboratory criteria: Contaminated/Leaked. juliocesar has been notified of need of recollection. 12/21/24 0958 Issac Moreno Performed By: #### L 100.0100 #### [facility] [address] [place], [address] Comprehensive Metabolic Profil Normal 133-145 [facility] Comment on above: Result Comment: This specimen has been REJECTED due to Laboratory criteria: Contaminated/Leaked. juliocesar has been notified of need of recollection. 12/21/24 0958 Issac Moreno Performed By: #### L 100.0100 #### [facility] [address] [place], [address] Comprehensive Metabolic Prof ilOrdered By: Babak Garcia on 12-21-2024 AST [Catalytic activity/Vol] 28 U/L Normal <=31 [facility] Comment on above: Hemolysis present, R esults could be affected. Result Comment: Hemo lysis present, Results??could be affected. ?? Performed By: #### L 100.0100 #### [facility] [address] [place], [address] Emergency Department Summary on 12-21-2024 Emergency Department Summary [facility] Medical Records Department [address] [place] [address] Emergency Department Summary 12/21/24 MR#: [id number] Acct: [id number] Name: BRENDA LE Rep #: [id number] : 1965 59 From: Babak Garcia DO PCP: 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 Patient states that she has been wheezing a lot lately. Per EMS they did not give any breathing treatments as her lungs were clear for them. [facility] Medical History Obesity (BMI 30-39.9) Hyponatremia Leukocytosis [...] 325 mg tablet,delayed 325 mg PO DAILY@1600 [facility] health 07/22/18 07/30/21 History release omeprazole 20 [...] Rx table (more content not included)... Normal [facility] Eosinophil percentageOrdered By: Babak Garcia on 12-21-2024 Eosinophils/100 WBC (Bld) 0.1 % Normal 0-5 [facility] Comment on above: Performed By: #### L 100.0100 #### [facility] [address] [place], [address] Result Comment: This specimen has been REJECTED due to Laboratory criteria: Contaminated/Leaked. veronikajaqueline has been notified of need of recollection. 12/21/24 0957 Issac L White Epithelial cells.squamous LM Ql (Urine sed)Ordered By: Babak Garcia on 12-21-2024 Epithelial cells.squamous LM.HPF (Urine sed) [#/Area] 0 /[HPF] 5-10 [facility] Erythrocyte distribution wid th ratioOrdered By: Babak Garcia on 12-21-2024 Erythrocyte distribution width (RBC) [Ratio] 14.3 % Normal 11.6-14.6 [facility] Comment on above: Performed By: #### L 100.0100 #### [facility] [address] [place], [place], [address] Erythrocyte distribution wid th standard deviationOrdered By: Babak Garcia on 12-21-2024 Erythrocyte distribution width (RBC) [Entitic vol] 46.4 fL High 35.1-43.9 [facility] Erythrocyte distribution width (RBC) [Ratio] 46.4 fl High 35.1-43.9 [facility] Estimation of creatinine epi aranceOrdered By: Babak Garcia on 12-21-2024 Estimated Creatinine Clearance Calc 127.81 ml/min 50-250 [facility] GFR/1.73 sq M.predicted kam g non-blacks MDRD (S/P/Bld) [Vol rate/Area]Ordered By: Babak Garcia on 12-21-2024 Estimated GFR (MDRD) Non-Af Amer 109 >60 [facility] Comment on above: mL/min/1.73m2 CKD-EP I Creatinine Equation (2020) Glomerular filtration rate ( GFR) estimation/1.73 sq m using serum, plasma, or whole bOrdered By: Babak Garcia on 12-21-2024 GFR/1.73 sq M.predicted among non-blacks MDRD (S/P/Bld) [Vol rate/Area] 109 mL/min/{1.73_m2} Normal >60 [facility] Comment on above: mL/min/1.73m2 CKD-EP I Creatinine Equation (2020) Result Comment: mL/m in/1.73m2 CKD-EPI Creatinine Equation (2020) Performed By: #### L 100.0100 #### [facility] [address] [place], [place], [address] Glucose Ql (U)Ordered By: Rory Garcia on 12-21-2024 Glucose (U) [Mass/Vol] 1000 mg/dL High Normal [facility] Hemoglobin measurementOrdere d By: Babak Garcia on 12-21-2024 Hemoglobin (Bld) [Mass/Vol] 12.7 g/dL Normal 12.0-15.0 [facility] Comment on above: Performed By: #### L 100.0100 #### [facility] [address] [place], [address] Immature granulocytes/100 WB C Auto (Bld)Ordered By: Babak Garcia on 12-21-2024 Immature granulocytes/100 WBC (Bld) 0.400 % 0.0-0.9 [facility] Comment on above: IG% - Immature Granu locytes (promyelocytes, myelocytes and metamyelocytes) > 1% indicates that a LEFT SHIFT is Present. Influenza virus A and B and SARS-CoV-2 (COVID-19) and Respiratory syncytial virus RNAOrdered By: Babak Garcia on 12-21-2024 SARS-CoV-2 (COVID-19) RNA LUIS M+probe Ql (Unsp spec) SARS-CoV-2 (COVID 19 PCR) Abnormal [facility] International normalized rat io (INR) calculationOrdered By: Babak Garcia on 12-21-2024 INR Coag (Bld) [Relative time] 1.0 {INR} [facility] Ketones Test strip Ql (U)Ord ered By: Babak Garcia on 12-21-2024 Ketones Ql (U) Negative Negative [facility] L499.0042on 12-21-2024 Trop T High Sen 7 ng/L Normal <=14 [facility] Comment on above: Performed By: #### L 100.0100 #### [facility] [address] [place], [address] L499.0043on 12-21-2024 Trop T High Sen Normal <=14 [facility] Comment on above: Result Comment: Canc elled via OM: Order cancelled - Patient discharged Performed By: #### L 100.0100 #### [facility] [address] [place], [address] L501.4021on 12-21-2024 Trop T High Sen 7 ng/L Normal <=14 [facility] Comment on above: Performed By: #### L 501.4021 #### [facility] [address] [place], [address] L503.7505on 12-21-2024 proBNP < 36 Normal <=900 [facility] Comment on above: Result Comment: Hear t Failure Unlikely: < 300 pg/mL Heart Failure Likely < 50 Years: > 450 pg/mL 50-75 Years: > 900 pg/mL >75 Years: > 1800 pg/mL Performed By: #### L 100.0100 #### [facility] [address] [place], [address] Lactic acid measurementOrder ed By: Babak Garcia on 12-21-2024 Lactate [Moles/Vol] 1.4 mmol/L Normal 0.0-2.0 [facility] Comment on above: Order Comment: Y Performed By: #### L 100.0100 #### [facility] [address] [place], [address] Lymphocytes Auto (Unsp spec) [#/Vol]Ordered By: Babak Garcia on 12-21-2024 Lymphocytes (Bld) [#/Vol] 1.06 10*3/uL 0.83-4.51 [facility] M100.678on 12-21-2024 M100.678 Copy of report sent to Infection Control Printer [id number] 12/21/24 0936 VSICK. SARS-CoV-2 (COVID 19) A Positive A INFLUENZA A Negative INFLUENZA B Negative RSV PCR Negative SARS-CoV-2 (COVID 19 PCR) Normal [facility] Comment on above: Performed By: #### L 500.4050, L501.2450, L100.0500, L501.4020 #### [facility] [address] [place], [address] MCV (mean corpuscular volume ) determinationOrdered By: Babak Garcia on 12-21-2024 MCV (RBC) [Entitic vol] 88.6 fL Normal 81-99 [facility] Comment on above: Performed By: #### L 100.0100 #### [facility] [address] [place], [address] Mean corpuscular hemoglobin (MCH) determinationOrdered By: Babak Garcia on 12-21-2024 MCH (RBC) [Entitic mass] 29.5 pg Normal 27.0-32.0 [facility] Comment on above: Performed By: #### L 100.0100 #### [facility] [address] [place], [address] Mean corpuscular hemoglobin concentration (MCHC) determinationOrdered By: Babak Garcia on 12-21-2024 MCHC (RBC) [Mass/Vol] 33.3 g/dL Normal 32-36 [facility] Comment on above: Performed By: #### L 100.0100 #### [facility] [address] [place], [address] Mean platelet volume determi nationOrdered By: Babak Garcia on 12-21-2024 Platelet mean volume (Bld) [Entitic vol] 9.4 fL Normal 6.2-12.0 [facility] Comment on above: Performed By: #### L 100.0100 #### [facility] [address] [place], [address] Microscopic analysis of urin e for red blood cells (RBC)Ordered By: Babak Garcia on 12-21-2024 Microscopic analysis of urine for red blood cells (RBC) 0 SEEN /hpf 0-5 [facility] Urine RBC 0 SEEN /hpf 0-5 [facility] Monocyte percentageOrdered B y: Babak Garcia on 12-21-2024 Monocytes/100 WBC (Bld) 4.7 % Normal 0-10 [facility] Comment on above: Performed By: #### L 100.0100 #### [facility] [address] [place], [address] Mucus LM Ql (Urine sed)Order ed By: Babak Garcia on 12-21-2024 Mucus Ql (Urine sed) 0 SEEN /hpf [facility] Neutrophil percentageOrdered By: Babak Garcia on 12-21-2024 Neutrophils/100 WBC (Bld) 86.0 % High 47-70 [facility] Comment on above: Performed By: #### L 100.0100 #### [facility] [address] [place], [address] Nitrite Test strip Ql (U)Ord ered By: Babak Garcia on 12-21-2024 Nitrite Ql (U) Negative Negative [facility] No Panel InformationOrdered By: Babak Garcia on 12-21-2024 Troponin T High Sensitivity 7 ng/L <14 [facility] [id number] Natriuretic Peptide II < 36 pg/mL <900 [facility] Comment on above: Heart Failure Unlike ly: < 300 pg/mLHeart Failure Likely< 50 Years: > 450 pg/mL50-75 Years: > 900 pg/mL>75 Years: > 1800 pg/mL Nucleated red blood cell per centageOrdered By: Babak Garcia on 12-21-2024 Nucleated RBC/100 WBC (Bld) [Ratio] 0 % 0-5 [facility] Partial Thromboplast Timeon 12-21-2024 aPTT Coag (Bld) [Time] 35.4 s Normal 24.1-36.2 [facility] Comment on above: Performed By: #### L 100.0100 #### [facility] [address] [place], [address] Platelet countOrdered By: Rory Garcia on 12-21-2024 Platelets (Bld) [#/Vol] 186 10*3/uL Normal 150-450 [facility] Comment on above: Performed By: #### L 100.0100 #### [facility] [address] [place], [address] Potassium measurement (mass/ volume)Ordered By: Babak Garcia on 12-21-2024 Potassium [Moles/Vol] 4.0 mmol/L Normal 3.3-5.1 [facility] Comment on above: Hemolysis present, R esults could be affected. Result Comment: Hemo lysis present, Results??could be affected. ?? Performed By: #### L 100.0100 #### [facility] [address] [place], [address] Potassium (Unsp spec) [Mass/Vol] 4.0 mmol/L 3.3-5.1 [facility] Comment on above: Hemolysis present, R esults could be affected. Protein Test strip Ql (U)Ord ered By: Babak Garcia on 12-21-2024 Protein Ql (U) 15 mg/dl High Negative [facility] Prothrombin Time w/INRon INR Coag (PPP) [Relative time] 1.0 {INR} Normal [facility] Comment on above: Performed By: #### L 100.0100 #### [facility] [address] [place], [address] PT Coag (PPP) [Time] 13.0 s Normal 11.7-14.9 [facility] Comment on above: Performed By: #### L 100.0100 #### [facility] [address] [place], [address] Prothrombin timeOrdered By: Babak Garcia on 12-21-2024 PT Coag (PPP) [Time] 13.0 s 11.7-14.9 [facility] Serum creatinine measurement (mass/volume)Ordered By: Babak Garcia on 12-21-2024 Creatinine [Mass/Vol] 0.46 mg/dL Low 0.70-1.20 [facility] Comment on above: Performed By: #### L 100.0100 #### [facility] [address] [place], [address] Serum globulin measurementOr dered By: Babak Garcia on 12-21-2024 Globulin (S) [Mass/Vol] 2.6 g/dL Normal 2.2-4.2 [facility] Comment on above: Performed By: #### L 100.0100 #### [facility] [address] [place], [address] Serum glucose measurement (m ass/volume)Ordered By: Babak Garcia on 12-21-2024 Glucose [Mass/Vol] 124 mg/dL High 70-99 [facility] Comment on above: Performed By: #### L 100.0100 #### [facility] [address] [place], [address] Serum or plasma alanine angulo otransferase (ALT) measurementOrdered By: Babak Garcia on 12-21-2024 ALT [Catalytic activity/Vol] 33 U/L Normal <=34 [facility] Comment on above: Performed By: #### L 100.0100 #### [facility] [address] [place], [address] Serum or plasma albumin lawrence urement (mass/volume)Ordered By: Babak Garcia on 12-21-2024 Albumin [Mass/Vol] 3.7 g/dL Normal 3.4-4.8 [facility] Comment on above: Performed By: #### L 100.0100 #### [facility] [address] [place], [address] Serum or plasma albumin/glob ulin mass ratioOrdered By: Babak Gacria on 12-21-2024 Albumin/Globulin [Mass ratio] 1.4 {ratio} Normal 0.9-2.4 [facility] Comment on above: Performed By: #### L 100.0100 #### [facility] [address] [place], [address] Serum or plasma alkaline jakob sphatase measurementOrdered By: Babak Garcia on 12-21-2024 ALP [Catalytic activity/Vol] 108 U/L High 35-104 [facility] Serum or plasma calcium lawrence urement (mass/volume)Ordered By: Babak Garcia on 12-21-2024 Calcium [Mass/Vol] 8.1 mg/dL Normal 7.6-11.0 [facility] Comment on above: Performed By: #### L 100.0100 #### [facility] [address] [place], [address] Serum or plasma urea nitroge n measurement (mass/volume)Ordered By: Babak Garcia on 12-21-2024 Urea nitrogen [Mass/Vol] 9 mg/dL Normal 4-19 [facility] Comment on above: Performed By: #### L 100.0100 #### [facility] [address] [place], [address] Sodium levelOrdered By: Juma Garcia on 12-21-2024 Sodium [Moles/Vol] 135 mmol/L Normal 133-145 [facility] Comment on above: Performed By: #### L 100.0100 #### [facility] [address] [place], [address] Squamous epithelial cells de tection in urine sediment by light microscopyOrdered By: Babak Garcia on 12-21-2024 Epithelial cells.squamous LM Ql (Urine sed) 0 SEEN /hpf 5-10 [facility] Total proteinOrdered By: Rogelio Garcia on 12-21-2024 Protein [Mass/Vol] 6.3 g/dL 5.9-8.4 [facility] Troponin T.cardiac High sens itivity method [Mass/Vol]Ordered By: Babak Garcia on 12-21-2024 Troponin T High Sensitivity 2 Hour 7 ng/L <14 [facility] Troponin T.cardiac [Mass/vol ume] in Serum or Plasma by High sensitivity methodOrdered By: Babak Garcia on 12-21-2024 Troponin T.cardiac High sensitivity method [Mass/Vol] 7 ng/L <14 [facility] Urinalysis, Completeon 12-21 RBC 0 SEEN Normal 0-5 [facility] Comment on above: Order Comment: 'TROP ' Serial specimen #1, #2 or #3: 1 Performed By: #### L 500.4050, L501.2450, L100.0500, L501.4020 #### [facility] [address] [place], [address] BACTERIA 0 SEEN Normal None Seen [facility] Comment on above: Order Comment: 'TROP ' Serial specimen #1, #2 or #3: 1 Performed By: #### L 500.4050, L501.2450, L100.0500, L501.4020 #### [facility] [address] [place], [address] EPI,SQUAMOUS 0 SEEN Normal 5-10 [facility] Comment on above: Order Comment: 'TROP ' Serial specimen #1, #2 or #3: 1 Performed By: #### L 500.4050, L501.2450, L100.0500, L501.4020 #### [facility] [address] [place], [address] Mucus Ql (Urine sed) 0 SEEN Normal [facility] Comment on above: Order Comment: 'TROP ' Serial specimen #1, #2 or #3: 1 Performed By: #### L 500.4050, L501.2450, L100.0500, L501.4020 #### [facility] [address] [place], [address] WBC 0 SEEN Normal 0-5 [facility] Comment on above: Order Comment: 'TROP ' Serial specimen #1, #2 or #3: 1 Performed By: #### L 500.4050, L501.2450, L100.0500, L501.4020 #### [facility] [address] [place], [address] Urine blood detectionOrdered By: Babak Garcia on 12-21-2024 Urine Occult Blood Negative Negative [facility] Urine clarityOrdered By: Rogeloi Garcia on 12-21-2024 Clarity (U) Clear Clear [facility] Urine color determinationOrd ered By: Babak Garcia on 12-21-2024 Color (U) Yellow Yellow [facility] Urine cultureOrdered By: Rogelio Garcia on 12-21-2024 Bacteria identified Cx Nom (U) Mixed Gram Pos & Gram Neg Org Abnormal [facility] Urine glucose detectionOrder ed By: Babak Garcia on 12-21-2024 Glucose Ql (U) 1000 mg/dl High Normal [facility] Urine leukocyte esterase det ection by dipstickOrdered By: Babak Garcia on 12-21-2024 Leukocyte esterase Test strip Ql (U) Negative Negative [facility] Urine pHOrdered By: Babak davidson on 12-21-2024 pH (U) 6.5 [pH] 5.0 - 8.0 [facility] Urine sediment bacteria coun t by microscopy (number/high power field)Ordered By: Babak Garcia on 12-21-2024 Bacteria LM.HPF (Urine sed) [#/Area] 0 /[HPF] None Seen [facility] Urine specific gravity measu rementOrdered By: Babak Garcia on 12-21-2024 Specific gravity (U) [Rel density] 1.010 1.002-1.030 [facility] Urine urobilinogen measureme ntOrdered By: Babak Garcia on 12-21-2024 Urobilinogen Ql (U) Normal mg/dl Normal [facility] Urobilinogen Ql (U)Ordered B y: Babak Garcia on 12-21-2024 Urine Urobilinogen Normal mg/dl Normal [facility] White blood cell (WBC) count Ordered By: Babak Garcia on 12-21-2024 WBC (Bld) [#/Vol] 12.3 10*3/uL High 4.4-11.0 [facility] [facility] Comment on above: Performed By: #### L 100.0100 #### [facility] [address] [place] [address], [address] White blood cell countOrdere d By: Babak Garcia on 12-21-2024 Urine WBC 0 SEEN /hpf 0-5 [facility] White blood cell count 0 SEEN /hpf 0-5 [facility] aPTT Coag (PPP) [Time]Ordere d By: Babak Garcia on 12-21-2024 aPTT Coag (Bld) [Time] 35.4 s 24.1-36.2 [facility] Absolute lymphocyte countOrd ered By: Lorraine Springer on 12-08-2024 Lymphocytes Auto (Unsp spec) [#/Vol] 2.50 10*3/uL 0.83-4.51 [facility] Absolute neutrophil countOrd ered By: Lorraine Springer on 12-08-2024 Neutrophils (Bld) [#/Vol] 6.5 10*3/uL 2.0-7.7 [facility] Automated lymphocyte count a s percentage of total leukocytesOrdered By: Lorraine Springer on 12-08-2024 Lymphocytes/100 WBC Auto (Unsp spec) 25.5 % 19-41 [facility] Basophil percentageOrdered B y: Lorraine Springer on 12-08-2024 Basophils/100 WBC (Bld) 0.6 % 0-1 [facility] CBC W/Diff, Automatedon 11-14 Absolute Lymph 2.50 X10 3/uL Normal 0.83-4.51 [facility] Comment on above: Performed By: #### L 100.0100 #### [facility] [address] [place], [address] Absolute Neut 6.5 X10 3/uL Normal 2.0-7.7 [facility] Comment on above: Performed By: #### L 100.0100 #### [facility] [address] [place], [address] Basophils/100 WBC (Bld) 0.6 % Normal 0-1 [facility] Comment on above: Performed By: #### L 100.0100 #### [facility] [address] [place], [address] Eosinophils/100 WBC (Bld) 0.2 % Normal 0-5 [facility] Comment on above: Performed By: #### L 100.0100 #### [facility] [address] [place], [address] Erythrocyte distribution width (RBC) [Ratio] 14.5 % Normal 11.6-14.6 [facility] Comment on above: Performed By: #### L 100.0100 #### [facility] [address] [place], [address] Hematocrit (Bld) [Volume fraction] 41.7 % Normal 37-47 [facility] Comment on above: Performed By: #### L 100.0100 #### [facility] [address] [place], [address] Hemoglobin (Bld) [Mass/Vol] 13.7 g/dL Normal 12.0-15.0 [facility] Comment on above: Performed By: #### L 100.0100 #### [facility] [address] [place], [address] IG% 0.500 Normal 0.0-0.9 [facility] Comment on above: Result Comment: IG% - Immature Granulocytes (promyelocytes, myelocytes and metamyelocytes) > 1% indicates that a LEFT SHIFT is Present. Performed By: #### L 100.0100 #### [facility] [address] [place], [address] Lymphocytes/100 WBC (Bld) 25.5 % Normal 19-41 [facility] Comment on above: Performed By: #### L 100.0100 #### [facility] [address] [place], [address] MCH (RBC) [Entitic mass] 29.3 pg Normal 27.0-32.0 [facility] Comment on above: Performed By: #### L 100.0100 #### [facility] [address] [place], [address] MCHC (RBC) [Mass/Vol] 32.9 g/dL Normal 32-36 [facility] Comment on above: Performed By: #### L 100.0100 #### [facility] [address] [place], [address] MCV (RBC) [Entitic vol] 89.3 fL Normal 81-99 [facility] Comment on above: Performed By: #### L 100.0100 #### [facility] [address] [place], [address] Monocytes/100 WBC (Bld) 7.0 % Normal 0-10 [facility] Comment on above: Performed By: #### L 100.0100 #### [facility] [address] [place], [address] Neutrophils/100 WBC (Bld) 66.2 % Normal 47-70 [facility] Comment on above: Performed By: #### L 100.0100 #### [facility] [address] [place], [address] Nucleated RBC (Bld) [#/Vol] 0 10*3/uL Normal 0-5 [facility] Comment on above: Performed By: #### L 100.0100 #### [facility] [address] [place], [address] Platelet mean volume (Bld) [Entitic vol] 9.5 fL Normal 6.2-12.0 [facility] Comment on above: Performed By: #### L 100.0100 #### [facility] [address] [place], [address] Platelets (Bld) [#/Vol] 225 10*3/uL Normal 150-450 [facility] Comment on above: Performed By: #### L 100.0100 #### [facility] [address] [place], [address] RBC (Bld) [#/Vol] 4.67 10*6/uL Normal 4.2-5.4 [facility] Comment on above: Performed By: #### L 100.0100 #### [facility] [address] [place], [address] RDW SD 46.8 fl High 35.1-43.9 [facility] Comment on above: Performed By: #### L 100.0100 #### [facility] [address] [place], [address] WBC (Bld) [#/Vol] 9.8 10*3/uL Normal 4.4-11.0 [facility] Comment on above: Performed By: #### L 100.0100 #### [facility] [place], [address] Eosinophil percentageOrdered By: Lorraine Springer on 12-08-2024 Eosinophils/100 WBC (Bld) 0.2 % 0-5 [facility] Erythrocyte distribution wid th ratioOrdered By: Lorraine Springer on 12-08-2024 Erythrocyte distribution width (RBC) [Ratio] 14.5 % 11.6-14.6 [facility] Erythrocyte distribution wid th standard deviationOrdered By: [facility] Hospitaldonald Springer on 12-08-2024 Erythrocyte distribution width (RBC) [Entitic vol] 46.8 fL High 35.1-43.9 [facility] Erythrocyte distribution width (RBC) [Ratio] 46.8 fl High 35.1-43.9 [facility] Hematocrit Auto (Bld) [Volum e fraction]Ordered By: Lorraine Springer on 12-08-2024 Hematocrit (Bld) [Volume fraction] 41.7 % 37-47 [facility] Hemoglobin measurementOrdere d By: Lorraine Springer on 12-08-2024 Hemoglobin (Bld) [Mass/Vol] 13.7 g/dL 12.0-15.0 [facility] Immature granulocytes/100 WB C Auto (Bld)Ordered By: Lorraine Springer on 12-08-2024 Immature granulocytes/100 WBC (Bld) 0.500 % 0.0-0.9 [facility] Comment on above: IG% - Immature Granu locytes (promyelocytes, myelocytes and metamyelocytes) > 1% indicates that a LEFT SHIFT is Present. Lymphocytes Auto (Unsp spec) [#/Vol]Ordered By: Lorraine Springer on 12-08-2024 Lymphocytes (Bld) [#/Vol] 2.50 10*3/uL 0.83-4.51 [facility] Lymphocytes/100 WBC Auto (Un sp spec)Ordered By: Lorraine Springer on 12-08-2024 Lymphocytes/100 WBC (Bld) 25.5 % 19-41 [facility] MCV (mean corpuscular volume ) determinationOrdered By: Lorraine Springer on 12-08-2024 MCV (RBC) [Entitic vol] 89.3 fL 81-99 [facility] Mean corpuscular hemoglobin (MCH) determinationOrdered By: Lorraine Springer on 12-08-2024 MCH (RBC) [Entitic mass] 29.3 pg 27.0-32.0 [facility] Mean corpuscular hemoglobin concentration (MCHC) determinationOrdered By: Lorraine Springer on 12-08-2024 MCHC (RBC) [Mass/Vol] 32.9 g/dL 32-36 [facility] Mean platelet volume determi nationOrdered By: Lorraine Springer on 12-08-2024 Platelet mean volume (Bld) [Entitic vol] 9.5 fL 6.2-12.0 [facility] Monocyte percentageOrdered B y: Lorraine Springer on 12-08-2024 Monocytes/100 WBC (Bld) 7.0 % 0-10 [facility] Neutrophil percentageOrdered By: Lorraine Springer on 12-08-2024 Neutrophils/100 WBC (Bld) 66.2 % 47-70 [facility] Nucleated red blood cell per centageOrdered By: Lorraine Springer on 12-08-2024 Nucleated RBC/100 WBC (Bld) [Ratio] 0 % 0-5 [facility] Platelet countOrdered By: Anastacia Springer on 12-08-2024 Platelets (Bld) [#/Vol] 225 10*3/uL 150-450 [facility] RBC Auto (Bld) [#/Vol]Ordere d By: Lorraine Springer on 12-08-2024 RBC (Bld) [#/Vol] 4.67 10*6/uL 4.2-5.4 [facility] White blood cell (WBC) count Ordered By: Lorraine Springer on 12-08-2024 WBC (Bld) [#/Vol] 9.8 10*3/uL 4.4-11.0 [facility] CNOVon 12-07-2024 CNOV Normal [facility] XR CHEST 2V FRONTAL/LATon XR CHEST 2V FRONTAL/LAT Normal [facility] XR Chest PA and Lateralon IMPRESSION: No acute radiographic abnormality. [employer] Consultant: MILDRED Transcribe Date/Time: Dec 07 2024 12:05P Dictated by : LISET MAY MD This examination was interpreted and the report reviewed and electronically signed by: LISET MAY MD on Dec 07 2024 12:06PM [facility] DIVISION OF RADIOLOGY * * *Final Report* [...] soft tissues: Unremarkable. DIVISION OF RADIOLOGY Provider, [facility] - 12/07/2024 * * *Final Report* [...] Unremarkable. IMPRESSION IMPRESSION: No acute radiographic abnormality. [employer] Consultant: MILDRED Transcribe Date/Time: Dec 07 2024 12:05P Dictated by : LISET MAY MD This examination was interpreted and the report reviewed and electronically signed by: LISET MAY MD on Dec 07 2024 12:06PM [facility] Radiology Study observation (narrative) [facility] XR Chest PA and LateralOrder ed By: [facility] Provider on 12-07-2024 [facility] CNPNon 12-03-2024 CNPN Normal [facility] PVR ANK/LARRY/TOE ASHELY VAS LAB on 12-01-2024 PVR ANK/LARRY/TOE ASHELY VAS LAB Normal [facility] CNPNon 11-29-2024 CNPN Normal [facility] CBC W/Diff, Automatedon Absolute Lymph 1.87 X10 3/uL Normal 0.83-4.51 [facility] Comment on above: Performed By: #### L 100.0100 #### [facility] [address] [place], [address] Absolute Neut 11.3 X10 3/uL High 2.0-7.7 [facility] Comment on above: Performed By: #### L 100.0100 #### [facility] [address] [place], [address] Basophils/100 WBC (Bld) 0.5 % Normal 0-1 [facility] Comment on above: Performed By: #### L 100.0100 #### [facility] [address] [place], [address] Eosinophils/100 WBC (Bld) 0.1 % Normal 0-5 [facility] Comment on above: Performed By: #### L 100.0100 #### [facility] [address] [place], [address] Erythrocyte distribution width (RBC) [Ratio] 14.3 % Normal 11.6-14.6 [facility] Comment on above: Performed By: #### L 100.0100 #### [facility] [address] [place], [address] Hematocrit (Bld) [Volume fraction] 41.1 % Normal 37-47 [facility] Comment on above: Performed By: #### L 100.0100 #### [facility] [address] [place], [address] Hemoglobin (Bld) [Mass/Vol] 13.3 g/dL Normal 12.0-15.0 [facility] Comment on above: Performed By: #### L 100.0100 #### [facility] [address] [place], [address] IG% 3.400 High 0.0-0.9 [facility] Comment on above: Result Comment: IG% - Immature Granulocytes (promyelocytes, myelocytes and metamyelocytes) > 1% indicates that a LEFT SHIFT is Present. Performed By: #### L 100.0100 #### [facility] [address] [place], [address] Lymphocytes/100 WBC (Bld) 13.1 % Low 19-41 [facility] Comment on above: Performed By: #### L 100.0100 #### [facility] [address] [place], [address] MCH (RBC) [Entitic mass] 28.9 pg Normal 27.0-32.0 [facility] Comment on above: Performed By: #### L 100.0100 #### [facility] [address] [place], [address] MCHC (RBC) [Mass/Vol] 32.4 g/dL Normal 32-36 [facility] Comment on above: Performed By: #### L 100.0100 #### [facility] [address] [place], [address] MCV (RBC) [Entitic vol] 89.2 fL Normal 81-99 [facility] Comment on above: Performed By: #### L 100.0100 #### [facility] [address] [place], [address] Monocytes/100 WBC (Bld) 3.7 % Normal 0-10 [facility] Comment on above: Performed By: #### L 100.0100 #### [facility] [address] [place], [address] Neutrophils/100 WBC (Bld) 79.2 % High 47-70 [facility] Comment on above: Performed By: #### L 100.0100 #### [facility] [address] [place], [address] Nucleated RBC (Bld) [#/Vol] 0 10*3/uL Normal 0-5 [facility] Comment on above: Performed By: #### L 100.0100 #### [facility] [address] [place], [address] Platelet mean volume (Bld) [Entitic vol] 9.5 fL Normal 6.2-12.0 [facility] Comment on above: Performed By: #### L 100.0100 #### [facility] [address] [place], [address] Platelets (Bld) [#/Vol] 262 10*3/uL Normal 150-450 [facility] Comment on above: Performed By: #### L 100.0100 #### [facility] [address] [place], [address] RBC (Bld) [#/Vol] 4.61 10*6/uL Normal 4.2-5.4 [facility] Comment on above: Performed By: #### L 100.0100 #### [facility] [address] [place], [address] RDW SD 45.5 fl High 35.1-43.9 [facility] Comment on above: Performed By: #### L 100.0100 #### [facility] [address] [place], [address] WBC (Bld) [#/Vol] 14.3 10*3/uL High 4.4-11.0 [facility] Comment on above: Performed By: #### L 100.0100 #### [facility] [address] [place], [address] Culture, Blood (WB)on 2024 CUB Blood cultures x2, f rom two different sites No growth in 5 days. Normal [facility] Comment on above: Performed By: #### L 500.4050, L501.2450, L100.0500, L501.4020 #### [facility] [address] [place], [address] Vitamin D 1,25-Dihydroxyon 0 11-13-2024 VIT D 1,25 DIHY 106.0 pg/mL Abnormal 24.8-81.5 [facility] Comment on above: Result Comment: Perf ormed at: [facility] [id number] [employer]: Darcy Schulz MD, Phone: [phone] Performed By: #### L 501.080 #### [facility] [address] [place], [address] BNP (brain natriuretic pepti de measurement)Ordered By: Hesham Rod on 11-12-2024 Natriuretic peptide B (Bld) [Mass/Vol] 24.1 pg/mL 0-100 [facility] BNP,B-Type NATRIURETIC PEPTI Yair 11-12-2024 Natriuretic peptide B (Bld) [Mass/Vol] 24.1 pg/mL Normal 0-100 [facility] Comment on above: Performed By: #### L 100.0100 #### [facility] [address] [place], [address] Bedside Glucoseon 11-12-2024 [facility] GLU 213 mg/dL High 74-106 [facility] Comment on above: Result Comment: DANIEL COLMENARES OF PATIENT CARE PER NURSING PROTOCOL Performed By: #### L 100.0100 #### [facility] [address] [place], [address] FING[facility]STICK GLU 230 mg/dL High 74-106 [facility] Comment on above: Result Comment: DANIEL COLMENARES OF PATIENT CARE PER NURSING PROTOCOL Performed By: #### L 501.080 #### [facility] [address] [place], [place], [address] Chest 1 View (Portable)on Chest 1 View (Portable) [facility] [address] [place], [place] [address] Chest 1 View (Portable) MR#: [id number] Acct: [id number] Name: BRENDA LE Rep #: [id number] : 1965 F 58 From: Adriano Mejia DO PCP: ESEQUIEL Headley Status: ADM IN Study: Chest 1 View (Portable) Date of Exam: 11/12/24 Exam# [id number] Ordering Dr: Hesham Amato DO PROCEDURE: CHEST [...] right lower lobe infiltrate . Reading [facility] CC: ESEQUIEL Salmon; Dr. Hesham Amato DO [employer] Consultant: Signed Normal [facility] Discharge Instructionon 10-15 Discharge Instruction [facility] Medical Records Department [address] [place] [address] Instructions for Home/Discharge Instructions 11/12/24 1016 MR#: [id number] Acct: [id number] Name: BRENDA LE Rep #: [id number] : 1965 58 From: Ana Lilia Lebron [...] 20 0RF Referrals / Follow Up: Shelia Salmon, ESEQUIEL [Primary Care Provider] - Within 2 Weeks Disposition Disposition (needs filled in before D/C Order can be placed): Home, Self Care 11/12/24 1040 Ana Lilia Lebron DO CC: ESEQUIEL Salmon; Dr. Hesham Amato DO Signed Normal [facility] deOrdered By: Ana Lilia Lebron on 11-12-2024 Bedside Glucose (Misc Panel) 213 mg/dL High 74-106 [facility] Comment on above: MANAGEMENT OF PATIEN T CARE PER NURSING PROTOCOL Bedside Glucoseon 11-11-2024 [facility] GLU 257 mg/dL High [address] [place] [address] Comment on above: Result Comment: DANIEL COLMENAERS OF PATIENT CARE PER NURSING PROTOCOL Performed By: #### L 501.4021 #### [facility] [address] [place], [place], [address] [facility]ING[facility]ICK GLU 315 mg/dL High [facility]106 [facility] Comment on above: Result Comment: DANIEL OCLMENARES OF PATIENT CARE PER NURSING PROTOCOL Performed By: #### L 500.2500, L100.0100 #### [facility] [address] [place], [address] FING[facility]ICK GLU 205 mg/dL High 74-106 [facility] Comment on above: Result Comment: DANIEL GEMENT OF PATIENT CARE PER NURSING PROTOCOL Performed By: #### L 500.2500, L100.0100 #### [facility] [address] [place], [address] FINGERSTICK GLU 247 mg/dL High 74-106 [facility] Comment on above: Result Comment: DANIEL GEMENT OF PATIENT CARE PER NURSING PROTOCOL Performed By: #### L 500.2500, L100.0100 #### [facility] [address] [place], [address] FINGERSTICK GLU 178 mg/dL High -106 [facility] Comment on above: Result Comment: DANIEL GEMENT OF PATIENT CARE PER NURSING PROTOCOL Performed By: #### L 500.2500, L100.0100 #### [facility] [address] [place], [address] M100.019on 11-11-2024 M100.019 Negative Normal [facility] Comment on above: Performed By: #### L 500.4050, L501.2450, L100.0500, L501.4020 #### [facility] [address] [place], [address] [id number] By: Hesham Rod on 11-11-2024 SARS-CoV-2 (COVID-19) RNA LUIS M+probe Ql (Unsp spec) [facility] 1,25-dihydroxyvitamin D3 [Ma ss/Vol]Ordered By: Hesham Rod on 11-10-2024 Vitamin D 1,25-Dihydroxy 106.0 pg/mL High 24.8-81.5 [facility] Comment on above: Performed at: [address] [id number] Director: Darcy Schulz MD, Phone: [phone] Absolute neutrophil countOrd ered By: Hesham Rod on 11-10-2024 Neutrophils (Bld) [#/Vol] 8.7 10*3/uL High 2.0-7.7 [facility] Albumin to globulin ratioOrd ered By: Hesham Rod on 11-10-2024 Albumin/Globulin [Mass ratio] 0.7 {ratio} Low 0.9-2.4 [facility] Basophil percentageOrdered B y: Hesham Rod on 11-10-2024 Basophils/100 WBC (Bld) 0.2 % 0-1 [facility] Bedside Glucoseon 11-10-2024 [facility]ICK GLU 195 mg/dL High [address] [place] [address] Comment on above: Result Comment: DANIEL GEMENT OF PATIENT CARE PER NURSING PROTOCOL Performed By: #### L 501.080 #### [facility] [address] [facility] [address] [place]ICK GLU 245 mg/dL High [address] [place] [address] Comment on above: Result Comment: DANIEL GEMENT OF PATIENT CARE PER NURSING PROTOCOL Performed By: #### L 501.080 #### [facility] [address] [place], [address] FINGERSTICK GLU 278 mg/dL High [address] [place] [address] Comment on above: Result Comment: DANIEL GEMENT OF PATIENT CARE PER NURSING PROTOCOL Performed By: #### L 500.2500, L100.0100 #### [facility] [address] [place], [address] FINGERSTICK GLU 192 mg/dL High [address] [place] [address] Comment on above: Result Comment: DANIEL GEMENT OF PATIENT CARE PER NURSING PROTOCOL Performed By: #### L 501.4021 #### [facility] [address] [place], [address] Bilirubin, totalOrdered By: Hesham Rod on 11-10-2024 Bilirubin [Mass/Vol] 0.50 mg/dL 0.20-1.00 [facility] Comment on above: Slight Lipemia, Resu lt may be falsely increased. For patients on eltrombopag therapy, use of Dimension Magnet TBIL is not recommended. Blood urea nitrogen (BUN)/cr eatinine ratioOrdered By: Hesham Rod on 11-10-2024 Urea nitrogen/Creatinine [Mass ratio] 23.0 mg/mg High 10-20 [facility] CBC W/Diff, Automatedon 10-14 MCHC (RBC) [Mass/Vol] 32.0 g/dL Normal 32-36 [facility] Comment on above: Result Comment: H H CHNAGE Performed By: #### L 500.2500, L100.0100 #### [facility] [address] [place], [address] Absolute Lymph 0.92 X10 3/uL Normal 0.83-4.51 [facility] Comment on above: Performed By: #### L 500.2500, L100.0100 #### [facility] [address] [place], [address] Absolute Neut 8.7 X10 3/uL High 2.0-7.7 [facility] Comment on above: Performed By: #### L 500.2500, L100.0100 #### [facility] [address] [place], [address] Basophils/100 WBC (Bld) 0.2 % Normal 0-1 [facility] Comment on above: Performed By: #### L 500.2500, L100.0100 #### [facility] [address] [place], [address] Eosinophils/100 WBC (Bld) 0.0 % Normal 0-5 [facility] Comment on above: Performed By: #### L 500.2500, L100.0100 #### [facility] [address] [place], [address] Erythrocyte distribution width (RBC) [Ratio] 14.3 % Normal 11.6-14.6 [facility] Comment on above: Performed By: #### L 500.2500, L100.0100 #### [facility] [address] [place], [address] Hematocrit (Bld) [Volume fraction] 37.8 % Normal 37-47 [facility] Comment on above: Performed By: #### L 500.2500, L100.0100 #### [facility] [address] [place], [address] Hemoglobin (Bld) [Mass/Vol] 12.1 g/dL Normal 12.0-15.0 [facility] Comment on above: Performed By: #### L 500.2500, L100.0100 #### [facility] [address] [place], [address] IG% 0.700 Normal 0.0-0.9 [facility] Comment on above: Result Comment: IG% - Immature Granulocytes (promyelocytes, myelocytes and metamyelocytes) > 1% indicates that a LEFT SHIFT is Present. Performed By: #### L 500.2500, L100.0100 #### [facility] [address], [address] Lymphocytes/100 WBC (Bld) 9.3 % Low 19-41 [facility] Comment on above: Performed By: #### L 500.2500, L100.0100 #### [facility] [address] [place], [address] MCH (RBC) [Entitic mass] 28.6 pg Normal 27.0-32.0 [facility] Comment on above: Performed By: #### L 500.2500, L100.0100 #### [facility] [address] [place], [address] MCV (RBC) [Entitic vol] 89.4 fL Normal 81-99 [facility] Comment on above: Performed By: #### L 500.2500, L100.0100 #### [facility] [address] [place], [address] Monocytes/100 WBC (Bld) 1.6 % Normal 0-10 [facility] Comment on above: Performed By: #### L 500.2500, L100.0100 #### [facility] [address] [place], [address] Neutrophils/100 WBC (Bld) 88.2 % High 47-70 [facility] Comment on above: Performed By: #### L 500.2500, L100.0100 #### [facility] [address] [place], [address] Nucleated RBC (Bld) [#/Vol] 0 10*3/uL Normal 0-5 [facility] Comment on above: Performed By: #### L 500.2500, L100.0100 #### [facility] [address] [place], [address] Platelet mean volume (Bld) [Entitic vol] 9.2 fL Normal 6.2-12.0 [facility] Comment on above: Performed By: #### L 500.2500, L100.0100 #### [facility] [address] [place], [address] Platelets (Bld) [#/Vol] 223 10*3/uL Normal 150-450 [facility] Comment on above: Performed By: #### L 500.2500, L100.0100 #### [facility] [address] [place], [address] RBC (Bld) [#/Vol] 4.23 10*6/uL Normal 4.2-5.4 [facility] Comment on above: Performed By: #### L 500.2500, L100.0100 #### [facility] [address] [place], [address] RDW SD 46.2 fl High 35.1-43.9 [facility] Comment on above: Performed By: #### L 500.2500, L100.0100 #### [facility] [address] [place], [address] WBC (Bld) [#/Vol] 9.9 10*3/uL Normal 4.4-11.0 [facility] Comment on above: Performed By: #### L 500.2500, L100.0100 #### [facility] [address] [place], [address] CNPNon 11-10-2024 CNPN Normal [facility] Carbon dioxide measurementOr dered By: Hesham Rod on 11-10-2024 CO2 [Moles/Vol] 22.0 mmol/L 21.0-32.0 [facility] Comment on above: Slight Lipemia, Resu lt may be falsely increased. Chloride measurementOrdered By: Hesham Rod on 11-10-2024 Chloride [Moles/Vol] 104 mmol/L 98-107 [facility] Comprehensive Metabolic Prof ilon 11-10-2024 Albumin [Mass/Vol] 3.1 g/dL Low 3.2-5.0 [facility] Comment on above: Performed By: #### L 500.2500, L100.0100 #### [facility] [address] [place], [address] Albumin/Globulin [Mass ratio] 0.7 {ratio} Low 0.9-2.4 [facility] Comment on above: Performed By: #### L 500.2500, L100.0100 #### [facility] [address] [place], [address] ALK P 159 U/L High 45-117 [facility] Comment on above: Performed By: #### L 500.2500, L100.0100 #### [facility] [address] [place], [address] ALT [Catalytic activity/Vol] 90 U/L High 13-56 [facility] Comment on above: Result Comment: Slig ht Lipemia, Result may be falsely increased. Performed By: #### L 500.2500, L100.0100 #### [facility] [address] [place], [address] AST [Catalytic activity/Vol] 50 U/L High 15-37 [facility] Comment on above: Result Comment: Slig ht Lipemia, Result may be falsely increased. Performed By: #### L 500.2500, L100.0100 #### [facility] [address] [place], [address] Bilirubin [Mass/Vol] 0.50 mg/dL Normal 0.20-1.00 [facility] Comment on above: Result Comment: Slig ht Lipemia, Result may be falsely increased. For patients on eltrombopag therapy, use of Dimension Magnet TBIL is not recommended. Performed By: #### L 500.2500, L100.0100 #### [facility] [address] [place], [address] BUN/CRE 23.0 RATIO High 10-20 [facility] Comment on above: Performed By: #### L 500.2500, L100.0100 #### [facility] [address] [place], [address] CA,Total 8.5 mg/dL Normal 8.5-10.1 [facility] Comment on above: Result Comment: Slig ht Lipemia, Result may be falsely increased. Performed By: #### L 500.2500, L100.0100 #### [facility] [address] [place], [address] Chloride [Moles/Vol] 104 mmol/L Normal 98-107 [facility] Comment on above: Performed By: #### L 500.2500, L100.0100 #### [facility] [address] [place], [address] CO2 [Moles/Vol] 22.0 mmol/L Normal 21.0-32.0 [facility] Comment on above: Result Comment: Slig ht Lipemia, Result may be falsely increased. Performed By: #### L 500.2500, L100.0100 #### [facility] [address] [place], [address] Creatinine [Mass/Vol] 0.43 mg/dL Low 0.55-1.02 [facility] Comment on above: Result Comment: Slig ht Lipemia, Result may be falsely increased. The validity of the calculated GFR GFRAA in patients over 70 years has not been determined. Clinical correlation is essential. Performed By: #### L 500.2500, L100.0100 #### [facility] [address] [place], [address] ECRCL 135.92 ml/min Normal [facility] Comment on above: Performed By: #### L 500.2500, L100.0100 #### [facility] [address] [place], [address] EST GFR - AA 190 mL/min Normal >60 [facility] Comment on above: Result Comment: Afri can Citizen [place] GFR Calc Performed By: #### L 500.2500, L100.0100 #### [facility] [address] [place], [address] GAP 10 Normal 5-15 [facility] Comment on above: Performed By: #### L 500.2500, L100.0100 #### [facility] [address] [place], [address] GFR/1.73 sq M.predicted among non-blacks MDRD (S/P/Bld) [Vol rate/Area] 157 mL/min/{1.73_m2} Normal >60 [facility] Comment on above: Result Comment: Non- GFR Calc Performed By: #### L 500.2500, L100.0100 #### [facility] [address] [place], [address] Globulin (S) [Mass/Vol] 4.3 g/dL High 2.2-4.2 [facility] Comment on above: Performed By: #### L 500.2500, L100.0100 #### [facility] [address] [place], [address] Glucose [Mass/Vol] 179 mg/dL High 74-106 [facility] Comment on above: Result Comment: Slig ht Lipemia, Result may be falsely increased. Fasting Glucose result greater than or equal to 126 mg/dL suggests DIABETES MELLITUS per A.D.A. criteria. Performed By: #### L 500.2500, L100.0100 #### [facility] [address] [place], [address] Potassium [Moles/Vol] 3.8 mmol/L Normal 3.5-5.1 [facility] Comment on above: Result Comment: Slig ht Lipemia, Result may be falsely increased. Performed By: #### L 500.2500, L100.0100 #### [facility] [address] [place], [address] Sodium [Moles/Vol] 136 mmol/L Normal 136-145 [facility] Comment on above: Performed By: #### L 500.2500, L100.0100 #### [facility] [address] [place], [address] T PROT 7.4 g/dL Normal 6.4-8.2 [facility] Comment on above: Result Comment: Slig ht Lipemia, Result may be falsely increased. Performed By: #### L 500.2500, L100.0100 #### [facility] [address] [place], [address] Urea nitrogen [Mass/Vol] 10 mg/dL Normal 7-18 [facility] Comment on above: Result Comment: Slig ht Lipemia, Result may be falsely increased. Performed By: #### L 500.2500, L100.0100 #### [facility] [address] [place], [address] Eosinophil percentageOrdered By: Hesham Rod on 11-10-2024 Eosinophils/100 WBC (Bld) 0.0 % 0-5 [facility] Erythrocyte distribution wid th ratioOrdered By: Hesham Rod on 11-10-2024 Erythrocyte distribution width (RBC) [Ratio] 14.3 % 11.6-14.6 [facility] Erythrocyte distribution wid th standard deviationOrdered By: Hesham Rod on 11-10-2024 Erythrocyte distribution width (RBC) [Entitic vol] 46.2 fL High 35.1-43.9 [facility] Estimated glomerular filtrat ion rate (GFR) AmericanOrdered By: Hesham Rod on 11-10-2024 Estimated GFR (MDRD) Amer 190 mL/min >60 [facility] Comment on above: GFR Calc Estimation of creatinine epi aranceOrdered By: Hesham Rod on 11-10-2024 Estimated Creatinine Clearance Calc 135.92 ml/min [facility] Glomerular filtration rate ( GFR) estimationOrdered By: Hesham Rod on 11-10-2024 Estimated GFR (MDRD) Non-Af Amer 157 mL/min >60 [facility] Comment on above: Non- GFR Calc Glucose measurementOrdered B y: Hesham Rod on 11-10-2024 Glucose [Mass/Vol] 179 mg/dL High 74-106 [facility] Comment on above: Slight Lipemia, Resu lt may be falsely increased.Fasting Glucose result greater than or equal to 126 mg/dL suggests DIABETES MELLITUS per A.D.A. criteria. Hematocrit Auto (Bld) [Volum e fraction]Ordered By: Hesham Rod on 11-10-2024 Hematocrit (Bld) [Volume fraction] 37.8 % 37-47 [facility] Hemoglobin A1con 11-10-2024 HbA1c (Bld) [Mass fraction] 6.8 % High 3.8-5.6 [facility] Comment on above: Result Comment: Norm al < 5.7 % Prediabetic 5.7 - 6.4 % Diabetic >or= 6.5 % Please note range changes. Performed By: #### L 501.080 #### [facility] [address] [place], [place], [address] Hemoglobin A1c percentageOrd ered By: Hesham Rod on 11-10-2024 HbA1c (Bld) [Mass fraction] 6.8 % High 3.8-5.6 [facility] Comment on above: Normal < 5.7 % Predi abetic 5.7 - 6.4 % Diabetic >or= 6.5 % Please note range changes. Hemoglobin measurementOrdere d By: Hesham Rod on 11-10-2024 Hemoglobin (Bld) [Mass/Vol] 12.1 g/dL 12.0-15.0 [facility] Immature granulocytes/100 WB C Auto (Bld)Ordered By: Hesham Rod on 11-10-2024 Immature granulocytes/100 WBC (Bld) 0.700 % 0.0-0.9 [facility] Comment on above: IG% - Immature Granu locytes (promyelocytes, myelocytes and metamyelocytes) > 1% indicates that a LEFT SHIFT is Present. L. pneumophila Ag Ql (U)Orde red By: Hesham Rod on 11-10-2024 Legionella Antigen [facility] - Chemistry and C hemistry - challengeOrdered By: Hesham Rod on 11-10-2024 AST [Catalytic activity/Vol] 50 U/L High 15-37 [facility] Comment on above: Slight Lipemia, Resu lt may be falsely increased. Legionella Antigen Urineon 0 11-10-2024 LEGU URINE, CLEAN CATCH Legionella Antigen result interpretation: L pneumo Ag Ur Ql Negative Presumptive negative for Legionella pneumophila serogroup 1 antigen in urine, suggesting no recent or current infection. Legionella Ag, Urine Negative (See interpretation below) Normal [facility] Comment on above: Performed By: #### L 500.2500, L100.0100 #### [facility] [address] [place], [address] Lymphocytes Auto (Unsp spec) [#/Vol]Ordered By: Hesham Rod on 11-10-2024 Lymphocytes (Bld) [#/Vol] 0.92 10*3/uL 0.83-4.51 [facility] Lymphocytes/100 WBC Auto (Un sp spec)Ordered By: Hesham Rod on 11-10-2024 Lymphocytes/100 WBC (Bld) 9.3 % Low 19-41 [facility] M R Staph Aureus DNA by PCRo n 11-10-2024 MRSA DNA ASSAY Negative Normal Negative [facility] Comment on above: Performed By: #### L 500.2500, L100.0100 #### [facility] [address] [place], [address] MCV (mean corpuscular volume ) determinationOrdered By: Hesham Rod on 11-10-2024 MCV (RBC) [Entitic vol] 89.4 fL 81-99 [facility] MRSA detection PCROrdered By : Hesham Rod on 11-10-2024 Methicillin-Resist S.aureus DNA PCR Negative Negative [facility] Magnesiumon 11-10-2024 Magnesium [Mass/Vol] 2.2 mg/dL Normal 1.6-2.6 [facility] Comment on above: Result Comment: Slig ht Lipemia, Result may be falsely increased. Performed By: #### L 500.2500, L100.0100 #### [facility] [address] [place], [place], [address] Magnesium measurementOrdered By: Hesham Rod on 11-10-2024 Magnesium [Mass/Vol] 2.2 mg/dL 1.6-2.6 [facility] Comment on above: Slight Lipemia, Resu lt may be falsely increased. Mean corpuscular hemoglobin (MCH) determinationOrdered By: Hesham Rod on 11-10-2024 MCH (RBC) [Entitic mass] 28.6 pg 27.0-32.0 [facility] Mean corpuscular hemoglobin concentration (MCHC) determinationOrdered By: Hesham Rod on 11-10-2024 MCHC (RBC) [Mass/Vol] 32.0 g/dL 32-36 [facility] Comment on above: Delta: 33.7 on 11/09-1907H&H CHNAGE Mean platelet volume determi nationOrdered By: Hesham Rod on 11-10-2024 Platelet mean volume (Bld) [Entitic vol] 9.2 fL 6.2-12.0 [facility] Monocyte percentageOrdered B y: Hesham Rod on 11-10-2024 Monocytes/100 WBC (Bld) 1.6 % 0-10 [facility] Neutrophil percentageOrdered By: Hesham Rod on 11-10-2024 Neutrophils/100 WBC (Bld) 88.2 % High 47-70 [facility] Nucleated red blood cell per centageOrdered By: Hesham Rod on 11-10-2024 Nucleated RBC/100 WBC (Bld) [Ratio] 0 % 0-5 [facility] Osmolality (U) [Osmolality]O rdered By: Hesham Rod on 11-10-2024 Urine Osmolality 201 mOsm/KG >50 [facility] Comment on above: Normal Urine Referen ce Ranges Random: 50 - 1200 mOsm/kg H20 depending on fluid intake Random: >850 mOsm/kg after 12 hour fluid restriction 24 hour: ~300 - 900 mOsm/kg H2O Osmolality, Serumon 11-10-19 25 OSMOLALITY,SER 283 mOsm/KG Normal 275-295 [facility] Comment on above: Performed By: #### L 501.080 #### [facility] [address], [place], [address] Osmolality, Urineon 11-10-19 25 OSMOLALITY,UR 201 mOsm/KG Normal [facility] Comment on above: Result Comment: Normal Urine Reference Ranges Random: 50 - 1200 mOsm/kg H20 depending on fluid intake Random: >850 mOsm/kg after 12 hour fluid restriction 24 hour: 300 - 900 mOsm/kg H2O Performed By: #### L 500.2500, L100.0100 #### [facility] [address] [place], [address] Osmolality, serumOrdered By: Hesham Rod on 11-10-2024 Serum Osmolality 283 mOsm/KG 275-295 [facility] Phosphoruson 11-10-2024 Phosphate [Mass/Vol] 3.2 mg/dL Normal 2.5-4.9 [facility] Comment on above: Result Comment: Slig ht Lipemia, Result may be falsely increased. Performed By: #### L 500.2500, L100.0100 #### [facility] [address] [place], [address] Phosphorus measurementOrdere d By: Hesham Rod on 11-10-2024 Phosphorus Level 3.2 mg/dL 2.5-4.9 [facility] Comment on above: Slight Lipemia, Resu lt may be falsely increased. Platelet countOrdered By: Carlos Rod on 11-10-2024 Platelets (Bld) [#/Vol] 223 10*3/uL 150-450 [facility] Potassium measurementOrdered By: Hesham Rod on 11-10-2024 Potassium [Moles/Vol] 3.8 mmol/L 3.5-5.1 [facility] Comment on above: Slight Lipemia, Resu lt may be falsely increased. RBC Auto (Bld) [#/Vol]Ordere d By: Hesham Rod on 11-10-2024 RBC (Bld) [#/Vol] 4.23 10*6/uL 4.2-5.4 [facility] RESPIRATORY PANEL MOLECULARo n 11-10-2024 RP PANEL [...] Not Detected RSV B Not Detected Normal [facility] Comment on above: Performed By: #### L 500.4050, L501.2450, L100.0500, L501.4020 #### [facility] [address] [place], [address] Respiratory pathogens DNA an d RNA panel LUIS M+probe (Resp)Ordered By: Hesham Rod on 11-10-2024 Respiratory Panel (PCR) [facility] Serum anion gap measurementO rdered By: Hesham Rod on 11-10-2024 Anion gap [Moles/Vol] 10 mmol/L 5-15 [facility] Serum globulin measurementOr dered By: Hesham Rod on 11-10-2024 Globulin (S) [Mass/Vol] 4.3 g/dL High 2.2-4.2 [facility] Serum or plasma alanine angulo otransferase (ALT) measurementOrdered By: Hesham Rod on 11-10-2024 ALT [Catalytic activity/Vol] 90 U/L High 13-56 [facility] Comment on above: Slight Lipemia, Resu lt may be falsely increased. Serum or plasma albumin lawrence urement (mass/volume)Ordered By: Hesham Rod on 11-10-2024 Albumin [Mass/Vol] 3.1 g/dL Low 3.2-5.0 [facility] Serum or plasma alkaline jakob sphatase measurementOrdered By: Hesham Rod on 11-10-2024 ALP [Catalytic activity/Vol] 159 U/L High 45-117 [facility] Serum or plasma calcium lawrence urement (mass/volume)Ordered By: Hesham Rod on 11-10-2024 Calcium [Mass/Vol] 8.5 mg/dL 8.5-10.1 [facility] Comment on above: Slight Lipemia, Resu lt may be falsely increased. Serum or plasma creatinine m easurement (mass/volume)Ordered By: Hesham Rod on 11-10-2024 Creatinine [Mass/Vol] 0.43 mg/dL Low 0.55-1.02 [facility] Comment on above: Slight Lipemia, Resu lt may be falsely increased.The validity of the calculated GFR & GFRAA in patients over 70 years has not been determined. Clinical correlation is essential. Serum or plasma urea nitroge n measurement (mass/volume)Ordered By: Hesham Rod on 11-10-2024 Urea nitrogen [Mass/Vol] 10 mg/dL 7-18 [facility] Comment on above: Slight Lipemia, Resu lt may be falsely increased. Sodium levelOrdered By: Bennie Rod on 11-10-2024 Sodium [Moles/Vol] 136 mmol/L 136-145 [facility] Strep pneumoniae Antig(UR,CS F)on 11-10-2024 STPAG URINE, CLEAN CATCH URINE INTERPRETATION Strep pneumoniae Antig(UR,CSF) Negative Urine Presumptive negative for pneumococcal pneumonia, suggesting no current or recent pneumococcal infection. Infection due to S pneumoniae cannot be ruled out since the antigen present in the sample may be below the detection limit of the test. Strep pneumo Test Negative URINE (See interpretation below) Normal [facility] Comment on above: Performed By: #### L 500.2500, L100.0100 #### [facility] [address] [place], [address] Streptococcus pneumoniae ant igen assayOrdered By: Hesham Rod on 11-10-2024 Streptococcus pneumoniae Antigen (M [facility] TSH QnOrdered By: Hesham maynard on 11-10-2024 Thyroid Stimulating Hormone (TSH) 0.831 uIU/mL 0.358-3.740 [facility] Thyroid Stim Hormone (TSH)on 11-10-2024 TSH 0.831 uIU/mL Normal 0.358-3.740 [facility] Comment on above: Performed By: #### L 501.080 #### [facility] [address] [place], [place], [id number] Total proteinOrdered By: Wes Rod on 11-10-2024 Protein [Mass/Vol] 7.4 g/dL 6.4-8.2 [facility] Comment on above: Slight Lipemia, Resu lt may be falsely increased. White blood cell (WBC) count Ordered By: Hesham Rod on 11-10-2024 WBC (Bld) [#/Vol] 9.9 10*3/uL 4.4-11.0 [facility] 12 Lead EKGon 11-09-2024 12 Lead EKG [facility] [address] [place] [address] 12 Lead EKG 11/09/242024 MR#: [id number] Acct: [id number] Name: BRENDA LE Rep #: [id number] : 1965 58 From: Gary Bose MD Attending Dr: Dr. Ana Lilia Lebron DO Status: A DM IN Ordering Dr: Francisco Thompson DO Date: 11/09/24 Location: [facility] Sex: F C Admitted: 11/09/24 Test Reason [...] Abnormal ECG Confirmed by TAMMY SANDERS, GLORIA ([id number]), department editor CRISTAL OTT ([id number]) on 11/11/2024 6:40:18 AM Referred By: Confirmed By: GLORIA BOSE MD 11/11/24 0640 Date Gary Bose MD CC: ESEQUIEL Salmon; Dr. Francisco Thompson DO; Dr. Ana Lilia Lebron DO Signed Normal [facility] Basic Metabolic Profile (BMP )on 11-09-2024 BUN/CRE 25.0 RATIO High 10-20 [facility] Comment on above: Performed By: #### L 500.2500, L100.0100 #### [facility] [address] [place], [address] CA,Total 9.2 mg/dL Normal 8.5-10.1 [facility] Comment on above: Performed By: #### L 500.2500, L100.0100 #### [facility] [address] [place], [address] Chloride [Moles/Vol] 100 mmol/L Normal 98-107 [facility] Comment on above: Performed By: #### L 500.2500, L100.0100 #### [facility] [address] [place], [address] CO2 [Moles/Vol] 21.0 mmol/L Normal 21.0-32.0 [facility] Comment on above: Performed By: #### L 500.2500, L100.0100 #### [facility] [address] [place], [address] Creatinine [Mass/Vol] 0.56 mg/dL Normal 0.55-1.02 [facility] Comment on above: Result Comment: The validity of the calculated GFR GFRAA in patients over 70 years has not been determined. Clinical correlation is essential. Performed By: #### L 500.2500, L100.0100 #### [facility] [address] [place], [address] ECRCL 105.16 ml/min Normal [facility] Comment on above: Performed By: #### L 500.2500, L100.0100 #### [facility] [address] [place], [address] EST GFR - AA 142 mL/min Normal >60 [facility] Comment on above: Result Comment: Afri can Citizen [place] GFR Calc Performed By: #### L 500.2500, L100.0100 #### [facility] [address] [place], [address] GAP 9 Normal 5-15 [facility] Comment on above: Performed By: #### L 500.2500, L100.0100 #### [facility] [address] [place], [address] GFR/1.73 sq M.predicted among non-blacks MDRD (S/P/Bld) [Vol rate/Area] 117 mL/min/{1.73_m2} Normal >60 [facility] Comment on above: Result Comment: Non- GFR Calc Performed By: #### L 500.2500, L100.0100 #### [facility] [address] [place], [address] Glucose [Mass/Vol] 164 mg/dL High 74-106 [facility] Comment on above: Result Comment: Fast ing Glucose result greater than or equal to 126 mg/dL suggests DIABETES MELLITUS per A.D.A. criteria. Performed By: #### L 500.2500, L100.0100 #### [facility] [address] [place], [address] Potassium [Moles/Vol] 3.8 mmol/L Normal 3.5-5.1 [facility] Comment on above: Performed By: #### L 500.2500, L100.0100 #### [facility] [address] [place], [address] Sodium [Moles/Vol] 130 mmol/L Low 136-145 [facility] Comment on above: Performed By: #### L 500.2500, L100.0100 #### [facility] [address] [place], [address] Urea nitrogen [Mass/Vol] 14 mg/dL Normal 7-18 [facility] Comment on above: Performed By: #### L 500.2500, L100.0100 #### [facility] [address] [place], [address] Bedside Glucoseon 11-09-2024 FINGERSTICK GLU 154 mg/dL High 74-106 [facility] Comment on above: Result Comment: DANIEL COLMENARES OF PATIENT CARE PER NURSING PROTOCOL Performed By: #### L 500.2500, L100.0100 #### [facility] [address] [place], [address] Bilirubin directOrdered By: Francisco Thompson on 11-09-2024 Bilirubin.direct [Mass/Vol] 0.28 mg/dL 0.00-0.30 [facility] Blood cultureOrdered By: Jovi Thompson on 11-09-2024 Bacteria identified Cx Nom (Bld) No growth in 5 days. [facility] CBC W/Diff, Automatedon 10-14 Absolute Lymph 1.89 X10 3/uL Normal 0.83-4.51 [facility] Comment on above: Performed By: #### L 500.2500, L100.0100 #### [facility] [facility] [address] [place], [address] Absolute Neut 8.8 X10 3/uL High 2.0-7.7 [facility] Comment on above: Performed By: #### L 500.2500, L100.0100 #### [facility] [address] [place], [address] Basophils/100 WBC (Bld) 0.5 % Normal 0-1 [facility] Comment on above: Performed By: #### L 500.2500, L100.0100 #### [facility] [address] [place], [address] Eosinophils/100 WBC (Bld) 0.1 % Normal 0-5 [facility] Comment on above: Performed By: #### L 500.2500, L100.0100 #### [facility] [address] [place], [address] Erythrocyte distribution width (RBC) [Ratio] 14.2 % Normal 11.6-14.6 [facility] Comment on above: Performed By: #### L 500.2500, L100.0100 #### [facility] [address] [place], [address] Hematocrit (Bld) [Volume fraction] 39.8 % Normal 37-47 [facility] Comment on above: Performed By: #### L 500.2500, L100.0100 #### [facility] [address] [place], [address] Hemoglobin (Bld) [Mass/Vol] 13.4 g/dL Normal 12.0-15.0 [facility] Comment on above: Performed By: #### L 500.2500, L100.0100 #### [facility] [address] [place], [address] IG% 0.400 Normal 0.0-0.9 [facility] Comment on above: Result Comment: IG% - Immature Granulocytes (promyelocytes, myelocytes and metamyelocytes) > 1% indicates that a LEFT SHIFT is Present. Performed By: #### L 500.2500, L100.0100 #### [facility] [address] [place], [address] Lymphocytes/100 WBC (Bld) 15.5 % Low 19-41 [facility] Comment on above: Performed By: #### L 500.2500, L100.0100 #### [facility] [address] [place], [address] MCH (RBC) [Entitic mass] 29.1 pg Normal 27.0-32.0 [facility] Comment on above: Performed By: #### L 500.2500, L100.0100 #### [facility] [address] [place], [address] MCHC (RBC) [Mass/Vol] 33.7 g/dL Normal 32-36 [facility] Comment on above: Performed By: #### L 500.2500, L100.0100 #### [facility] [address] [place], [address] MCV (RBC) [Entitic vol] 86.3 fL Normal 81-99 [facility] Comment on above: Performed By: #### L 500.2500, L100.0100 #### [facility] [address] [place], [address] Monocytes/100 WBC (Bld) 12.0 % High 0-10 [facility] Comment on above: Performed By: #### L 500.2500, L100.0100 #### [facility] [address] [place], [address] Neutrophils/100 WBC (Bld) 71.5 % High 47-70 [facility] Comment on above: Performed By: #### L 500.2500, L100.0100 #### [facility] [address] [place], [address] Nucleated RBC (Bld) [#/Vol] 0 10*3/uL Normal 0-5 [facility] Comment on above: Performed By: #### L 500.2500, L100.0100 #### [facility] [address] [place], [address] Platelet mean volume (Bld) [Entitic vol] 9.3 fL Normal 6.2-12.0 [facility] Comment on above: Performed By: #### L 500.2500, L100.0100 #### [facility] [address] [place], [address] Platelets (Bld) [#/Vol] 239 10*3/uL Normal 150-450 [facility] Comment on above: Performed By: #### L 500.2500, L100.0100 #### [facility] [address] [place], [address] RBC (Bld) [#/Vol] 4.61 10*6/uL Normal 4.2-5.4 [facility] Comment on above: Performed By: #### L 500.2500, L100.0100 #### [facility] [address] [place], [address] RDW SD 44.9 fl High 35.1-43.9 [facility] Comment on above: Performed By: #### L 500.2500, L100.0100 #### [facility] [address] [place], [address] WBC (Bld) [#/Vol] 12.2 10*3/uL High 4.4-11.0 [facility] Comment on above: Performed By: #### L 500.2500, L100.0100 #### [facility] [address] [place], [address] CNOVon 11-09-2024 CNOV Normal [facility] Chest 1 View (Portable)on Chest 1 View (Portable) [facility] [address] [place] [address] Chest 1 View (Portable) MR#: [id number] Acct: [id number] Name: BRENDA LE Rep #: [id number] : 1965 F 58 From: Adriano Mejia DO PCP: ESEQUIEL Headley Status: PRE ER Study: Chest 1 View (Portable) Date of Exam: 11/09/24 Exam# [id number] Ordering Dr: Provider,Ed P. PROCEDURE: CHEST 1 [...] process. Follow-up to resolution recommended. Reading Location: [facility] CC: ESEQUIEL Salmon; ED PHYSICIAN PROVIDER [employer] Consultant: Signed Normal [facility] Emergency Department Summary on 11-09-2024 Emergency Department Summary [facility] Medical Records Department [address] [place] [address] Emergency Department Summary 11/09/24 MR#: [id number] Acct: [id number] Name: BRENDA LE Rep #: [id number] : 1965 58 From: Francisco Thompson DO PCP: Shelia Salmon, DENTAL MOLD MAKER Status:REG ER Location: ED HPI History of Present Illness Chief Complaint: Shortness of Breath Informant: patient and mental health staff Narrative Narrative: 58-year-old female from [facility] presenting to the emergency room with fever and cough. There is reported that around the of this month she had a viral URI. 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 They recommended that she come to emergency when it was discovered that the director group sales stated they cannot give her any medicine [...] She does have a history of COPD. 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 Normal [facility] H AND P Exam - Hospitaliston 11-09-2024 H&P Exam - Hospitalist [facility] Medical Records Department [address] [place] [address] H P Exam - Hospitalist 11/09/24 2321 MR#: [id number] Acct: [id number] Name: BRENDA LE Rep #: [id number] : 1965 58 From: Hesham Amato DO PCP: Shelia Salmon, DENTAL MOLD MAKER Status:ADM IN Location: [facility] YP297-3 HPI - General General Date of Admission: [...] omeprazole who resides at a local psychiatric fpc who presents to [facility] ER after staff noted patient complaining of shortness of breath and wheezing. Ms. Le is not a fully-reliable historian at this time so information was primarily gathered from chart, medical staff and computer. According to the records the patient's tubular splitting machine tender informed the ER physician that she first became ill around November 02, 2024 with a viral URI. She was subsequently taken to urgent care with patient suspected to have Pneumonia complicated by AE COPD with patient recommended to start antibiotic and steroid therapy but tubular splitting machine tender unable to administer medications without a formal MAR to sign off on - which would not be available until tomorrow morning so she was brought in to the ER for further evaluation and treatment. Her tubular splitting machine tender went on to report that she looked [...] is expected to extend beyond 2 midnights. [facility] Medical History Schizophrenia LIDA on CPAP Obesity [...] Unknown Rx (more content not included)... Normal [facility] INFLUENZA A&B MOLECULAR (POC )on 11-09-2024 Flu A (POCT) Negative Negative [facility] Flu B (POCT) Negative Negative [facility] Procedural Control Valid [facility] Location:[facility], [address], [place], [address] [facility] POINT OF CARE [facility] Influenza virus A and B and SARS-CoV-2 (COVID-19) and Respiratory syncytial virus RNAOrdered By: Francisoc Thompson on 11-09-2024 SARS-CoV-2 (COVID-19) RNA LUIS M+probe Ql (Unsp spec) [facility] International normalized rat io (INR) calculationOrdered By: Francisco Thompson on 11-09-2024 INR Coag (Bld) [Relative time] 1.1 {INR} [facility] Lactic Acidon 11-09-2024 Lactate [Moles/Vol] 1.3 mmol/L Normal 0.4-1.9 [facility] Comment on above: Order Comment: Y Performed By: #### L 501.4021 #### [facility] [address] [place], [place], [address] Lactic acid measurementOrder ed By: Francisco Thompson on 11-09-2024 Lactate [Moles/Vol] 1.3 mmol/L 0.4-2.0 [facility] Liver Profileon 11-09-2024 Albumin [Mass/Vol] 3.5 g/dL Normal 3.2-5.0 [facility] Comment on above: Performed By: #### L 501.4021 #### [facility] [address] [place], [place], [address] (793 ALK P 188 U/L High 45-117 [facility] Comment on above: Performed By: #### L 501.4021 #### [facility] [address] [place], [address] ALT [Catalytic activity/Vol] 103 U/L High 13-56 [facility] Comment on above: Performed By: #### L 501.4021 #### [facility] [address] [place], [address] AST [Catalytic activity/Vol] 83 U/L High 15-37 [facility] Comment on above: Performed By: #### L 501.4021 #### [facility] [address] [place], [address] Bilirubin [Mass/Vol] 0.80 mg/dL Normal 0.20-1.00 [facility] Comment on above: Result Comment: For patients on eltrombopag therapy, use of Dimension Magnet TBIL is not recommended. Performed By: #### L 501.4021 #### [facility] [address] [place], [address] Bilirubin.direct [Mass/Vol] 0.28 mg/dL Normal 0.00-0.30 [facility] Comment on above: Performed By: #### L 501.4021 #### [facility] [address] [place], [address] Globulin (S) [Mass/Vol] 4.4 g/dL High 2.2-4.2 [facility] Comment on above: Performed By: #### L 501.4021 #### [facility] [address] [place], [address] T PROT 7.9 g/dL Normal 6.4-8.2 [facility] Comment on above: Performed By: #### L 501.4021 #### [facility] [address] [place], [address] M100.678on 11-09-2024 M100.678 SARS-CoV-2 (COVID 19 ) Negative INFLUENZA A Negative INFLUENZA B Negative RSV PCR Negative Normal [facility] Comment on above: Performed By: #### L 501.4021 #### [facility] [address] [place], [address] Prothrombin Time w/INRon INR Coag (PPP) [Relative time] 1.1 {INR} Normal [facility] Comment on above: Performed By: #### L 501.4021 #### [facility] [address] [place], [address] PT Coag (PPP) [Time] 13.9 s Normal 11.7-14.9 [facility] Comment on above: Performed By: #### L 501.4021 #### [facility] [address] [place], [address] Prothrombin timeOrdered By: Francisco Thompson on 11-09-2024 PT Coag (PPP) [Time] 13.9 s 11.7-14.9 [facility] XR CHEST 2V FRONTAL/LATon XR CHEST 2V FRONTAL/LAT Normal [facility] XR Chest PA and Lateralon IMPRESSION: Patchy density in the lingula raises the possibility of pneumonia. [employer] Consultant: MILDRED Transcribe Date/Time: Nov 09 2024 5:44P Dictated by : HESHAM CEDILLO MD This examination was interpreted and the report reviewed and electronically signed by: HESHAM CEDILLO MD on Nov 09 2024 5:46PM [facility] DIVISION OF RADIOLOGY * * *Final Report* [...] the thoracic spine. DIVISION OF RADIOLOGY Provider, [facility] - 11/09/2024 * * *Final Report* [...] the lingula raises the possibility of pneumonia. [employer] Consultant: MILDRED Transcribe Date/Time: Nov 09 2024 5:44P Dictated by : HESHAM CEDILLO MD This examination was interpreted and the report reviewed and electronically signed by: HESHAM CEDILLO MD on Nov 09 2024 5:46PM EST [facility] Radiology Study observation (narrative) Pola etienne [facility] XR Chest PA and LateralOrder ed By: [facility] Provider on 11-09-2024 [facility] CNPNon 11-05-2024 CNPN Normal [facility] Aldolase SerPl-cCncon 2024 Aldolase [Catalytic activity/Vol] 5.2 mU/mL Normal 1.5-8.1 [facility] Comment on above: Order Comment: Speci carlos Type: BLOOD SPECIMENOrdering Facility: [facility] Address: [address] [place] [address] Result Comment: This test was developed, and its performance characteristics determined by the [facility] Department of Pathology and Laboratory Medicine. It has not been cleared or approved by the FDA. The [facility] Department of Pathology and Laboratory Medicine is regulated under CLIA as qualified to perform high-complexity testing. This test is used for clinical purposes. It should not be regarded as investigational or for research. Performed By: #### 1 761-6 ####[facility] LABCLIA [id number] [place] [address] [place] CBC W Auto Differential pane l (Bld)on 11-02-2024 Basophils (Bld) [#/Vol] 0.06 10*3/uL Normal <0.11 [facility] Comment on above: Order Comment: Speci men Type: BLOOD SPECIMENOrdering Facility: [facility] Address: [address] [place] [address] Performed By: #### 5 7021-8 ####[facility] LABCLIA [id number] [place] [address] [place] Basophils/100 WBC (Bld) 0.5 % Normal [facility] Comment on above: Order Comment: Speci men Type: BLOOD SPECIMENOrdering Facility: [facility] Address: [address] [place] [address] Performed By: #### 5 7021-8 ####[facility] LABCLIA [id number] [place] [address] [place] Differential cell count method Nom (Bld) Auto Normal [facility] Comment on above: Order Comment: Speci men Type: BLOOD SPECIMENOrdering Facility: [facility] Address: [address] [place] [address] Performed By: #### 5 7021-8 ####[facility] LABCLIA [id number] [place] [address] [place] Eosinophils (Bld) [#/Vol] 10*3/uL Normal <0.46 [facility] Comment on above: Order Comment: Speci men Type: BLOOD SPECIMENOrdering Facility: [facility] Address: [address] [place] [address] Performed By: #### 5 7021-8 ####[facility] LABCLIA [id number] [place] [address] [place] Eosinophils/100 WBC (Bld) 0.1 % Normal [facility] Comment on above: Order Comment: Speci men Type: BLOOD SPECIMENOrdering Facility: [facility] Address: [address] [place] [address] Performed By: #### 5 7021-8 ####[facility] LABCLIA [id number] [place] [address] [place] Erythrocyte distribution width (RBC) [Ratio] 14.3 % Normal 11.5-15.0 [facility] Comment on above: Order Comment: Speci men Type: BLOOD SPECIMENOrdering Facility: [facility] Address: [address] [place] [address] Performed By: #### 5 7021-8 ####[facility] LABCLIA [id number] [place] [address] [place] Hematocrit (Bld) [Volume fraction] 44.1 % Normal 36.0-46.0 [facility] Comment on above: Order Comment: Speci men Type: BLOOD SPECIMENOrdering Facility: [facility] Address: [address] [place] [address] Performed By: #### 5 7021-8 ####[facility] LABIA [id number] [place] [address] [place] Hemoglobin (Bld) [Mass/Vol] 13.8 g/dL Normal 11.5-15.5 [facility] Comment on above: Order Comment: Speci men Type: BLOOD SPECIMENOrdering Facility: [facility] Address: [address] [place] [address] Performed By: #### 5 7021-8 ####[facility] LABIA [id number] [place] [address] [place] Immature granulocytes (Bld) [#/Vol] 0.05 10*3/uL Normal <0.10 [facility] Comment on above: Order Comment: Speci men Type: BLOOD SPECIMENOrdering Facility: [facility] Address: [address] [place] [address] Performed By: #### 5 7021-8 ####[facility] LABIA [id number] [place] [address] [place] Immature granulocytes/100 WBC (Bld) 0.5 % Normal [facility] Comment on above: Order Comment: Speci men Type: BLOOD SPECIMENOrdering Facility: [facility] Address: [address] [place] [address] Performed By: #### 5 7021-8 ####[facility] LABIA [id number] [place] [address] [place] Lymphocytes (Bld) [#/Vol] 2.33 10*3/uL Normal 1.00-4.00 [facility] Comment on above: Order Comment: Speci men Type: BLOOD SPECIMENOrdering Facility: [facility] Address: [address] [place] [address] Performed By: #### 5 7021-8 ####[facility] LABCLIA [id number] [place] [address] [place] Lymphocytes/100 WBC (Bld) 21.0 % Normal [facility] Comment on above: Order Comment: Speci men Type: BLOOD SPECIMENOrdering Facility: [facility] Address: [address] [place] [address] Performed By: #### 5 7021-8 ####[facility] LABIA [id number] [place] [address] [place] MCH (RBC) [Entitic mass] 28.4 pg Normal 26.0-34.0 [facility] Comment on above: Order Comment: Speci men Type: BLOOD SPECIMENOrdering Facility: [facility] Address: [address] [place] [address] Performed By: #### 5 7021-8 ####[facility] LABIA [id number] [place] [address] [place] MCHC (RBC) [Mass/Vol] 31.3 g/dL Normal 30.5-36.0 [facility] Comment on above: Order Comment: Speci men Type: BLOOD SPECIMENOrdering Facility: [facility] Address: [address] [place] [address] Performed By: #### 5 7021-8 ####[facility] LABIA [id number] [place] [address] [place] MCV (RBC) [Entitic vol] 90.7 fL Normal 80.0-100.0 [facility] Comment on above: Order Comment: Speci men Type: BLOOD SPECIMENOrdering Facility: [facility] Address: [address] [place] [address] Performed By: #### 5 7021-8 ####[facility] LABCLIA [id number] [place] [address] [place] Monocytes (Bld) [#/Vol] 0.76 10*3/uL Normal <0.87 [facility] Comment on above: Order Comment: Speci men Type: BLOOD SPECIMENOrdering Facility: [facility] Address: [address] [place] [address] Performed By: #### 5 7021-8 ####[facility] LABCLIA [id number] [place] [address] [place] Monocytes/100 WBC (Bld) 6.9 % Normal [facility] Comment on above: Order Comment: Speci men Type: BLOOD SPECIMENOrdering Facility: [facility] Address: [address] [place] [address] Performed By: #### 5 7021-8 ####[facility] LABCLIA [id number] [place] [address] [place] Neutrophils (Bld) [#/Vol] 7.86 10*3/uL High 1.45-7.50 [facility] Comment on above: Order Comment: Speci men Type: BLOOD SPECIMENOrdering Facility: [facility] Address: [address] [place] [address] Performed By: #### 5 7021-8 ####[facility] LABCLIA [id number] [place] [address] [place] Neutrophils/100 WBC (Bld) 71.0 % Normal [facility] Comment on above: Order Comment: Speci men Type: BLOOD SPECIMENOrdering Facility: [facility] Address: [address] [place] [address] Performed By: #### 5 7021-8 ####[facility] LABCLIA [id number] [place] [address] [place] Nucleated RBC (Bld) [#/Vol] 10*3/uL Normal <0.01 [facility] Comment on above: Order Comment: Speci men Type: BLOOD SPECIMENOrdering Facility: [facility] Address: [address] [place] [address] Performed By: #### 5 7021-8 ####[facility] LABIA [id number] [place] [address] [place] Nucleated RBC/100 WBC (Bld) [Ratio] 0.0 /100 WBC Normal [facility] Comment on above: Order Comment: Speci men Type: BLOOD SPECIMENOrdering Facility: [facility] Address: [address] [place] [address] Performed By: #### 5 7021-8 ####[facility] LABIA [id number] [place] [address] [place] Platelet mean volume (Bld) [Entitic vol] 12.2 fL Normal 9.0-12.7 [facility] Comment on above: Order Comment: Speci men Type: BLOOD SPECIMENOrdering Facility: [facility] Address: [address] [place] [address] Performed By: #### 5 7021-8 ####[facility] LABIA [id number] [place] [address] [place] Platelets (Bld) [#/Vol] 129 10*3/uL Low 150-400 [facility] Comment on above: Order Comment: Speci men Type: BLOOD SPECIMENOrdering Facility: [facility] Address: [address] [place] [address] Performed By: #### 5 7021-8 ####[facility] LABIA [id number] [place] [address] [place] RBC (Bld) [#/Vol] 4.86 10*6/uL Normal 3.90-5.20 [facility] Comment on above: Order Comment: Speci men Type: BLOOD SPECIMENOrdering Facility: [facility] Address: [address] [place] [address] Performed By: #### 5 7021-8 ####[facility] LABIA [id number] [place] [address] [place] WBC (Bld) [#/Vol] 11.07 10*3/uL High 3.70-11.00 [facility] Comment on above: Order Comment: Speci men Type: BLOOD SPECIMENOrdering Facility: [facility] Address: [address] [place] [address] Performed By: #### 5 7021-8 ####[facility] [id number] [place] [address] [place] CK SerPl-cCncon 11-02-2024 CK [Catalytic activity/Vol] 51 U/L Normal 42-196 [facility] Comment on above: Order Comment: Speci men Type: BLOOD SPECIMENOrdering Facility: [facility] Address: [address] [place] [address] Performed By: #### 2 157-6, 18675-6, LIPNF ####[facility] [id number] [place] [address] [place] CNOVon 11-02-2024 CNOV Normal [facility] Comprehensive metabolic 2000 panelon 11-02-2024 Albumin [Mass/Vol] 4.4 g/dL Normal 3.9-4.9 [facility] Comment on above: Order Comment: Speci men Type: BLOOD SPECIMENOrdering Facility: [facility] Address: [address] [place] [address] Performed By: #### 2 157-6, 33380-0, LIPNF ####[facility] LABIA [id number] [place] [address] [place] ALP [Catalytic activity/Vol] 133 U/L High 34-123 [facility] Comment on above: Order Comment: Speci men Type: BLOOD SPECIMENOrdering Facility: [facility] Address: [address] [place] [address] Performed By: #### 2 157-6, 97411-3, LIPNF ####[facility] LABCLIA [id number] [place] [address] [place] ALT [Catalytic activity/Vol] 43 U/L High 7-38 [facility] Comment on above: Order Comment: Speci men Type: BLOOD SPECIMENOrdering Facility: [facility] Address: [address] [place] [address] Performed By: #### 2 157-6, 63404-8, LIPNF ####[facility] LABCLIA [id number] [place] [address] [place] Anion gap [Moles/Vol] 13 mmol/L Normal 8-15 [facility] Comment on above: Order Comment: Speci men Type: BLOOD SPECIMENOrdering Facility: [facility] Address: [address] [place] [address] Performed By: #### 2 157-6, 18828-7, LIPNF ####[facility] LABCLIA [id number] [place] [address] [place] AST [Catalytic activity/Vol] 23 U/L Normal 13-35 [facility] Comment on above: Order Comment: Speci men Type: BLOOD SPECIMENOrdering Facility: [facility] Address: [address] [place] [address] Performed By: #### 2 157-6, 26472-1, LIPNF ####[facility] LABCLIA [id number] [place] [id number] [place] Bilirubin [Mass/Vol] 0.2 mg/dL Normal 0.2-1.3 [facility] Comment on above: Order Comment: Speci men Type: BLOOD SPECIMENOrdering Facility: [facility] Address: [address] [place] [address] Performed By: #### 2 157-6, 29536-0, LIPNF ####[facility] LABCLIA [id number] [place] [address] [place] Calcium [Mass/Vol] 9.2 mg/dL Normal 8.5-10.2 [facility] Comment on above: Order Comment: Speci men Type: BLOOD SPECIMENOrdering Facility: [facility] Address: [address] [place] [address] Performed By: #### 2 157-6, 78772-8, LIPNF ####[facility] LABCLIA [id number] [place] [address] [place] Chloride [Moles/Vol] 93 mmol/L Low 98-107 [facility] Comment on above: Order Comment: Speci men Type: BLOOD SPECIMENOrdering Facility: [facility] Address: [address] [place] [address] Performed By: #### 2 157-6, 48207-6, LIPNF ####[facility] LABCLIA [id number] [place] [address] [place] CO2 [Moles/Vol] 25 mmol/L Normal 22-30 [facility] Comment on above: Order Comment: Speci men Type: BLOOD SPECIMENOrdering Facility: [facility] Address: [address] [place] [address] Performed By: #### 2 157-6, 21127-1, LIPNF ####[facility] LABCLIA [id number] [place] [address] [place] Creatinine [Mass/Vol] 0.55 mg/dL Low 0.58-0.96 [facility] Comment on above: Order Comment: Speci men Type: BLOOD SPECIMENOrdering Facility: [facility] Address: [address] [place] [address] Performed By: #### 2 157-6, 59880-3, LIPNF ####[facility] LABCLIA [id number] [id number] [address] [place] Creatinine and Glomerular filtration rate.predicted panel (S/P/Bld) 105 mL/min/1.73m??? Normal >=60 [facility] Comment on above: Order Comment: Rand gonzalez Type: BLOOD SPECIMENOrdering Facility: [facility] Address: [address] [place] [address] Result Comment: Gia mated Glomerular Filtration Rate [...] actual GFR. Performed By: #### 2 157-6, 20748-8, LIPNF ####[facility] LABCLIA [id number] [place] [address] [place] Glucose [Mass/Vol] 138 mg/dL High 74-99 [facility] Comment on above: Order Comment: Rand gonzalez Type: BLOOD SPECIMENOrdering Facility: [facility] Address: [address] [place] [address] Result Comment: The [place] Diabetes Association (ADA) provides guidance for cutoff [...] Standards of Medical Care in Diabetes 2016, [place] Diabetes Association. Diabetes Care. 2016.39(Suppl 1). Performed By: #### 2 157-6, 38497-2, LIPNF ####[facility] LABCLIA [id number] [place] [address] [place] Potassium [Moles/Vol] 4.3 mmol/L Normal 3.7-5.1 [facility] Comment on above: Order Comment: Speci men Type: BLOOD SPECIMENOrdering Facility: [facility] Address: [address] [place] [address] Performed By: #### 2 157-6, 78770-6, LIPNF ####[facility] LABCLIA [id number] [place] [address] [place] Protein [Mass/Vol] 7.4 g/dL Normal 6.3-8.0 [facility] Comment on above: Order Comment: Speci men Type: BLOOD SPECIMENOrdering Facility: [facility] Address: [address] [place] [address] Performed By: #### 2 157-6, 57352-3, LIPNF ####[facility] LABCLIA [id number] [place] [address] [place] Sodium [Moles/Vol] 131 mmol/L Low 136-144 [facility] Comment on above: Order Comment: Speci men Type: BLOOD SPECIMENOrdering Facility: [facility] Address: [address] [place] [address] Performed By: #### 2 157-6, 08303-9, LIPNF ####[facility] LABCLIA [id number] [place] [address] [place] Urea nitrogen [Mass/Vol] 11 mg/dL Normal 7- [facility] Comment on above: Order Comment: Speci men Type: BLOOD SPECIMENOrdering Facility: [facility] Address: [address] [place] [address] Performed By: #### 2 157-6, 03818-4, LIPNF ####[facility] LABCLIA [id number] [place] [id number] [place] HbA1c (Bld)on 11-02-2024 Average glucose Estimated from glycated hemoglobin (Bld) [Mass/Vol] 146 mg/dL Normal [facility] Comment on above: Order Comment: Speci men Type: BLOOD SPECIMENOrdering Facility: [facility] Address: [address] [place] [address] Result Comment: eAG: (Estimated average glucose) is a calculated value from HgbA1c and is logistics service representative of the average blood glucose level in the last 2-3 month period. Performed By: #### 5 5454-3 ####[facility] LABCLIA [id number] [place] [address] [place] HbA1c (Bld) [Mass fraction] 6.7 % High 4.3-5.6 [facility] Comment on above: Order Comment: Andreii men Type: BLOOD SPECIMENOrdering Facility: [facility] Address: [address] [place] [address] Result Comment: Amer [place] Diabetes Association guidelines indicate that patients with HgbA1c in the range 5.7-6.4% are at increased risk for development of diabetes, and intervention by lifestyle modification may be beneficial. HgbA1c greater or equal to 6.5% is considered diagnostic of diabetes. Performed By: #### 5 5454-3 ####[facility] LABCLIA [id number] [place] [address] [place] LIPID PANEL, NONFASTINGon Cholesterol [Mass/Vol] 204 mg/dL High <200 [facility] Comment on above: Order Comment: Speci men Type: BLOOD SPECIMENOrdering Facility: [facility] Address: [address] [place] [address] Result Comment: <200 mg/dL, Desirable 200-239 mg/dL, Borderline high>239 mg/dL, High Performed By: #### 2 157-6, 84227-0, LIPNF ####[facility] LABCLIA [id number] [place] [address] [place] HDL CHOLESTEROL, NF 39 mg/dL Low >39 [facility] Comment on above: Order Comment: Speci men Type: BLOOD SPECIMENOrdering Facility: [facility] Address: [address] [place] [address] Result Comment: 40-5 9 mg/dL, Acceptable>59 mg/dL, High: Negative risk factor for coronary heart disease<40 mg/dL, Low: Positive risk factor for coronary heart disease Performed By: #### 2 157-6, 26920-4, LIPNF ####[facility] LABCLIA [id number] [place] [address] [place] LDL CHOLESTEROL, NF 96 mg/dL Normal <100 [facility] Comment on above: Order Comment: Speci men Type: BLOOD SPECIMENOrdering Facility: [facility] Address: [address] [place] [address] Result Comment: <100 mg/dL, Optimal 100-129 mg/dL, Near optimal/above optimal 130-159 mg/dL, Borderline high 160-189 mg/dL, High>189 mg/dL, Very highSecondary prevention optimal LDL Cholesterol levels are recommended to be < 70 mg/dL Performed By: #### 2 157-6, 31027-0, LIPNF ####[facility] LABCLIA [id number] [place] [address] [place] LDL/HDL RATIO, NF 2.46 mg/dL Normal <2.54 [facility] Comment on above: Order Comment: Speci men Type: BLOOD SPECIMENOrdering Facility: [facility] Address: [address] [place] [address] Result Comment: Refe rence:1. National Cholesterol Education Program ATP III Guideline At-A-Glance Quick Desk Reference: National Heart, Lung, and Blood [place]. National Institutes of Health. 2001: NIH Publication No. 01-3305.2. An International Atherosclerosis Society position paper: global recommendations for the management of dyslipidemia: executive summary, Atherosclerosis. 2014: 232(2):410-413. Performed By: #### 2 157-6, 64634-5, LIPNF ####[facility] LABCLIA [id number] [place] [address] [place] NON HDL CHOL, NF 165 mg/dL High <130 [facility] Comment on above: Order Comment: Speci men Type: BLOOD SPECIMENOrdering Facility: [facility] Address: [address] [place] [address] Result Comment: <130 mg/dL, Optimal 130-159 mg/dL, Near optimal/above optimal 160-189 mg/dL, Borderline high 190-219 mg/dL, High>219 mg/dL, Very highSecondary prevention optimal non HDL Cholesterol levels are recommended to be <100 mg/dL Performed By: #### 2 157-6, 62109-2, LIPNF ####[facility] LABCLIA [id number] [place] [address] [place] T CHOL/HDL RATIO NF 5.23 mg/dL High <5.10 [facility] Comment on above: Order Comment: Speci men Type: BLOOD SPECIMENOrdering Facility: [facility] Address: [address] [place] [address] Performed By: #### 2 157-6, 49140-5, LIPNF ####[facility] LABCLIA [id number] [place] [address] [place] TRIGLYCERIDES, NF 344 mg/dL High <150 [facility] Comment on above: Order Comment: Speci men Type: BLOOD SPECIMENOrdering Facility: [facility] Address: [address] [place] [address] Result Comment: <150 mg/dL, Normal 150-199 mg/dL, Borderline high 200-499 mg/dL, High>499 mg/dL, Very high Performed By: #### 2 157-6, 60891-3, LIPNF ####[facility] LABCLIA [id number] [place] [address] [place] VLDL CHOLESTEROL, NF 69 mg/dL High <30 [facility] Comment on above: Order Comment: Speci men Type: BLOOD SPECIMENOrdering Facility: [facility] Address: [address] [place] [address] Performed By: #### 2 157-6, 98205-0, LIPNF ####[facility] LABCLIA [id number] [place] [address] [place] XR LUMBAR 3V AP/LAT/L5-S1on 11-02-2024 XR LUMBAR 3V AP/LAT/L5-S1 Normal [facility] XR Lumbar spine 3 Viewson IMPRESSION: MILD DEGENERATIVE CHANGE [employer] Consultant: MILDRED Transcribe Date/Time: Nov 02 2024 4:48P Dictated by : EUSEBIA MARIN MD This examination was interpreted and the report reviewed and electronically signed by: EUSEBIA MARIN MD on Nov 02 2024 4:52PM [facility] DIVISION OF RADIOLOGY * * *Final Report* [...] focal bony abnormality DIVISION OF RADIOLOGY Provider, [facility] - 11/02/2024 * * *Final Report* [...] bony abnormality IMPRESSION IMPRESSION: MILD DEGENERATIVE CHANGE [employer] Consultant: PSCB Transcribe Date/Time: Nov 02 2024 4:48P Dictated by : EUSEBIA MARIN MD This examination was interpreted and the report reviewed and electronically signed by: EUSEBIA MARIN MD on Nov 02 2024 4:52PM EST [facility] Radiology Study observation (narrative) [facility] XR Lumbar spine 3 ViewsOrder ed By: [facility]cf Provider on 11-02-2024 [facility] 12 Lead EKGon 10-14-2024 12 Lead EKG [facility] Cardiovascular Services [address] [place] [address] 12 Lead EKG 10/14/24 1615 MR#: [id number] Acct: [id number] Name: BRENDA LE Rep #: [id number] : 1965 58 From: Yovany Dimas MD [...] Abnormal ECG Confirmed by YOVANY DIMAS MD ([id number]), department editor ROSY CLINE ([id number]) on 10/15/2024 8:26:49 AM Referred By: Tae Holland Confirmed By: YOVANY DIMAS MD 10/15/24 0826 Date Yovany Dimas MD CC: DENTAL MOLD MAKER Shelia Salmon; Dr. Tae Holland DO Signed Normal [facility] Absolute neutrophil countOrd ered By: Lorraine Springer on 10-14-2024 Neutrophils (Bld) [#/Vol] 5.8 10*3/uL 2.0-7.7 [facility] Albumin to globulin ratioOrd ered By: Tae Holland on 10-14-2024 Albumin/Globulin [Mass ratio] 0.9 {ratio} 0.9-2.4 [facility] Basophil percentageOrdered B y: Lorraine Springer on 10-14-2024 Basophils/100 WBC (Bld) 0.5 % 0-1 [facility] Bilirubin, totalOrdered By: Tae Holland on 10-14-2024 Bilirubin [Mass/Vol] 0.50 mg/dL 0.20-1.00 [facility] Comment on above: For patients on eltr ombopag therapy, use of Dimension Magnet TBIL is not recommended. Blood urea nitrogen (BUN)/cr eatinine ratioOrdered By: Tae Holland on 10-14-2024 Urea nitrogen/Creatinine [Mass ratio] 31.2 mg/mg High 10-20 [facility] CBC W/Diff, Automatedon Absolute Lymph 1.45 X10 3/uL Normal 0.83-4.51 [facility] Comment on above: Performed By: #### L 500.4050, L501.2450, L100.0500, L501.4020 #### [facility] [address] [place], [address] Absolute Neut 5.8 X10 3/uL Normal 2.0-7.7 [facility] Comment on above: Performed By: #### L 500.4050, L501.2450, L100.0500, L501.4020 #### [facility] [address] [place], [address] Basophils/100 WBC (Bld) 0.5 % Normal 0-1 [facility] Comment on above: Performed By: #### L 500.4050, L501.2450, L100.0500, L501.4020 #### [facility] [address] [place], [address] Eosinophils/100 WBC (Bld) 0.4 % Normal 0-5 [facility] Comment on above: Performed By: #### L 500.4050, L501.2450, L100.0500, L501.4020 #### [facility] [address] [place], [address] Erythrocyte distribution width (RBC) [Ratio] 14.0 % Normal 11.6-14.6 [facility] Comment on above: Performed By: #### L 500.4050, L501.2450, L100.0500, L501.4020 #### [facility] [address] [place], [address] Hematocrit (Bld) [Volume fraction] 44.2 % Normal 37-47 [facility] Comment on above: Performed By: #### L 500.4050, L501.2450, L100.0500, L501.4020 #### [facility] [address] [place], [address] Hemoglobin (Bld) [Mass/Vol] 14.4 g/dL Normal 12.0-15.0 [facility] Comment on above: Performed By: #### L 500.4050, L501.2450, L100.0500, L501.4020 #### [facility] [address] [place], [address] IG% 0.600 Normal 0.0-0.9 [facility] Comment on above: Result Comment: IG% - Immature Granulocytes (promyelocytes, myelocytes and metamyelocytes) > 1% indicates that a LEFT SHIFT is Present. Performed By: #### L 500.4050, L501.2450, L100.0500, L501.4020 #### [facility] [address] [place], [address] Lymphocytes/100 WBC (Bld) 17.9 % Low 19-41 [facility] Comment on above: Performed By: #### L 500.4050, L501.2450, L100.0500, L501.4020 #### [facility] [address] [place], [address] MCH (RBC) [Entitic mass] 29.3 pg Normal 27.0-32.0 [facility] Comment on above: Performed By: #### L 500.4050, L501.2450, L100.0500, L501.4020 #### [facility] [address] [place], [address] MCHC (RBC) [Mass/Vol] 32.6 g/dL Normal 32-36 [facility] Comment on above: Performed By: #### L 500.4050, L501.2450, L100.0500, L501.4020 #### [facility] [address] [place], [address] MCV (RBC) [Entitic vol] 90.0 fL Normal 81-99 [facility] Comment on above: Performed By: #### L 500.4050, L501.2450, L100.0500, L501.4020 #### [facility] [address] [place], [address] Monocytes/100 WBC (Bld) 9.5 % Normal 0-10 [facility] Comment on above: Performed By: #### L 500.4050, L501.2450, L100.0500, L501.4020 #### [facility] [address] [place], [address] Neutrophils/100 WBC (Bld) 71.1 % High 47-70 [facility] Comment on above: Performed By: #### L 500.4050, L501.2450, L100.0500, L501.4020 #### [facility] [address] [place], [address] Nucleated RBC (Bld) [#/Vol] 0 10*3/uL Normal 0-5 [facility] Comment on above: Performed By: #### L 500.4050, L501.2450, L100.0500, L501.4020 #### [facility] [address] [place], [address] Platelet mean volume (Bld) [Entitic vol] 11.1 fL Normal 6.2-12.0 [facility] Comment on above: Performed By: #### L 500.4050, L501.2450, L100.0500, L501.4020 #### [facility] [address] [place], [address] Platelets (Bld) [#/Vol] 196 10*3/uL Normal 150-450 [facility] Comment on above: Performed By: #### L 500.4050, L501.2450, L100.0500, L501.4020 #### [facility] [address] [place], [address] RBC (Bld) [#/Vol] 4.91 10*6/uL Normal 4.2-5.4 [facility] Comment on above: Performed By: #### L 500.4050, L501.2450, L100.0500, L501.4020 #### [facility] [address] [place], [address] RDW SD 45.5 fl High 35.1-43.9 [facility] Comment on above: Performed By: #### L 500.4050, L501.2450, L100.0500, L501.4020 #### [facility] [address] [place], [address] WBC (Bld) [#/Vol] 8.1 10*3/uL Normal 4.4-11.0 [facility] Comment on above: Performed By: #### L 500.4050, L501.2450, L100.0500, L501.4020 #### [facility] [address] [place], [address] CBC-Complete Blood Cnt No Di ffon 10-14-2024 Erythrocyte distribution width (RBC) [Ratio] 13.9 % Normal 11.6-14.6 [facility] Comment on above: Performed By: #### L 500.4050, L501.2450, L100.0500, L501.4020 #### [facility] [address] [place], [address] Hematocrit (Bld) [Volume fraction] 45.8 % Normal 37-47 [facility] Comment on above: Performed By: #### L 500.4050, L501.2450, L100.0500, L501.4020 #### [facility] [address] [place], [address] Hemoglobin (Bld) [Mass/Vol] 15.1 g/dL High 12.0-15.0 [facility] Comment on above: Performed By: #### L 500.4050, L501.2450, L100.0500, L501.4020 #### [facility] [address] [place], [address] MCH (RBC) [Entitic mass] 29.1 pg Normal 27.0-32.0 [facility] Comment on above: Performed By: #### L 500.4050, L501.2450, L100.0500, L501.4020 #### [facility] [address] [place], [address] MCHC (RBC) [Mass/Vol] 33.0 g/dL Normal 32-36 [facility] Comment on above: Performed By: #### L 500.4050, L501.2450, L100.0500, L501.4020 #### [facility] [address] [place], [address] MCV (RBC) [Entitic vol] 88.2 fL Normal 81-99 [facility] Comment on above: Performed By: #### L 500.4050, L501.2450, L100.0500, L501.4020 #### [facility] [address] [place], [address] Platelet mean volume (Bld) [Entitic vol] 9.6 fL Normal 6.2-12.0 [facility] Comment on above: Performed By: #### L 500.4050, L501.2450, L100.0500, L501.4020 #### [facility] [address] [place], [address] Platelets (Bld) [#/Vol] 217 10*3/uL Normal 150-450 [facility] Comment on above: Performed By: #### L 500.4050, L501.2450, L100.0500, L501.4020 #### [facility] [address] [place], [address] RBC (Bld) [#/Vol] 5.19 10*6/uL Normal 4.2-5.4 [facility] Comment on above: Performed By: #### L 500.4050, L501.2450, L100.0500, L501.4020 #### [facility] [address] [place], [address] RDW SD 44.6 fl High 35.1-43.9 [facility] Comment on above: Performed By: #### L 500.4050, L501.2450, L100.0500, L501.4020 #### [facility] [address] [place], [address] WBC (Bld) [#/Vol] 19.5 10*3/uL High 4.4-11.0 [facility] Comment on above: Performed By: #### L 500.4050, L501.2450, L100.0500, L501.4020 #### [facility] [address] [place], [place], [address] Carbon dioxide measurementOr dered By: Tae Holland on 10-14-2024 CO2 [Moles/Vol] 23.0 mmol/L 21.0-32.0 [facility] Chest 1 View (Portable)on Chest 1 View (Portable) [facility] Imaging Services [address] [place] [address] Chest 1 View (Portable) MR#: [id number] Acct: [id number] Name: BRENDA LE Rep #: [id number] : 1965 F 58 From: Sid Ayala DO PCP: ESEQUIEL Headley Status: REG ER Study: Chest 1 View (Portable) Date of Exam: 10/14/24 Exam# [id number] Ordering Dr: Tae Holland DO [id number] INDICATION: Cough EXAMINATION/TECHNIQUE: X-RAY - XR Chest [...] CC: ESEQUIEL Salmon; Dr. Tae Holland DO [employer] Consultant: Signed Normal [facility] Chloride measurementOrdered By: Tae Holland on 01-02-2025 Chloride [Moles/Vol] 96 mmol/L Low 98-107 [facility] Comprehensive Metabolic Prof ilon 10-14-2024 Albumin [Mass/Vol] 3.5 g/dL Normal 3.2-5.0 [facility] Comment on above: Order Comment: 'TROP ' Serial specimen #1, #2 or #3: 1 Performed By: #### L 500.4050, L501.2450, L100.0500, L501.4020 #### [facility] [address] [place], [address] Albumin/Globulin [Mass ratio] 0.9 {ratio} Normal 0.9-2.4 [facility] Comment on above: Order Comment: 'TROP ' Serial specimen #1, #2 or #3: 1 Performed By: #### L 500.4050, L501.2450, L100.0500, L501.4020 #### [facility] [address] [place], [address] ALK P 110 U/L Normal 45-117 [facility] Comment on above: Order Comment: 'TROP ' Serial specimen #1, #2 or #3: 1 Performed By: #### L 500.4050, L501.2450, L100.0500, L501.4020 #### [facility] [address] [place], [address] ALT [Catalytic activity/Vol] 49 U/L Normal 13-56 [facility] Comment on above: Order Comment: 'TROP ' Serial specimen #1, #2 or #3: 1 Performed By: #### L 500.4050, L501.2450, L100.0500, L501.4020 #### [facility] [address] [place], [address] AST [Catalytic activity/Vol] 29 U/L Normal 15-37 [facility] Comment on above: Order Comment: 'TROP ' Serial specimen #1, #2 or #3: 1 Performed By: #### L 500.4050, L501.2450, L100.0500, L501.4020 #### [facility] [address] [place], [address] Bilirubin [Mass/Vol] 0.50 mg/dL Normal 0.20-1.00 [facility] Comment on above: Order Comment: 'TROP ' Serial specimen #1, #2 or #3: 1 Result Comment: For patients on eltrombopag therapy, use of Dimension Magnet TBIL is not recommended. Performed By: #### L 500.4050, L501.2450, L100.0500, L501.4020 #### [facility] [address] [place], [address] BUN/CRE 31.2 RATIO High 10-20 [facility] Comment on above: Order Comment: 'TROP ' Serial specimen #1, #2 or #3: 1 Performed By: #### L 500.4050, L501.2450, L100.0500, L501.4020 #### [facility] [address] [place], [address] CA,Total 8.9 mg/dL Normal 8.5-10.1 [facility] Comment on above: Order Comment: 'TROP ' Serial specimen #1, #2 or #3: 1 Performed By: #### L 500.4050, L501.2450, L100.0500, L501.4020 #### [facility] [address] [place], [address] Chloride [Moles/Vol] 96 mmol/L Low 98-107 [facility] Comment on above: Order Comment: 'TROP ' Serial specimen #1, #2 or #3: 1 Performed By: #### L 500.4050, L501.2450, L100.0500, L501.4020 #### [facility] [address] [place], [address] CO2 [Moles/Vol] 23.0 mmol/L Normal 21.0-32.0 [facility] Comment on above: Order Comment: 'TROP ' Serial specimen #1, #2 or #3: 1 Performed By: #### L 500.4050, L501.2450, L100.0500, L501.4020 #### [facility] [address] [place], [address] Creatinine [Mass/Vol] 0.58 mg/dL Normal 0.55-1.02 [facility] Comment on above: Order Comment: 'TROP ' Serial specimen #1, #2 or #3: 1 Result Comment: The validity of the calculated GFR GFRAA in patients over 70 years has not been determined. Clinical correlation is essential. Performed By: #### L 500.4050, L501.2450, L100.0500, L501.4020 #### [facility] [address] [place], [address] EST GFR - AA 137 mL/min Normal >60 [facility] Comment on above: Order Comment: 'TROP ' Serial specimen #1, #2 or #3: 1 Result Comment: Afri can Citizen Of [place] GFR Calc Performed By: #### L 500.4050, L501.2450, L100.0500, L501.4020 #### [facility] [address] [place], [address] GAP 10 Normal 5-15 [facility] Comment on above: Order Comment: 'TROP ' Serial specimen #1, #2 or #3: 1 Performed By: #### L 500.4050, L501.2450, L100.0500, L501.4020 #### [facility] [address] [place], [address] GFR/1.73 sq M.predicted among non-blacks MDRD (S/P/Bld) [Vol rate/Area] 113 mL/min/{1.73_m2} Normal >60 [facility] Comment on above: Order Comment: 'TROP ' Serial specimen #1, #2 or #3: 1 Result Comment: Non- GFR Calc Performed By: #### L 500.4050, L501.2450, L100.0500, L501.4020 #### [facility] [address] [place], [address] Globulin (S) [Mass/Vol] 4.0 g/dL Normal 2.2-4.2 [facility] Comment on above: Order Comment: 'TROP ' Serial specimen #1, #2 or #3: 1 Performed By: #### L 500.4050, L501.2450, L100.0500, L501.4020 #### [facility] [address] [place], [address] Glucose [Mass/Vol] 171 mg/dL High 74-106 [facility] Comment on above: Order Comment: 'TROP ' Serial specimen #1, #2 or #3: 1 Result Comment: Fast ing Glucose result greater than or equal to 126 mg/dL suggests DIABETES MELLITUS per A.D.A. criteria. Performed By: #### L 500.4050, L501.2450, L100.0500, L501.4020 #### [facility] [address] [place], [address] Potassium [Moles/Vol] 4.0 mmol/L Normal 3.5-5.1 [facility] Comment on above: Order Comment: 'TROP ' Serial specimen #1, #2 or #3: 1 Performed By: #### L 500.4050, L501.2450, L100.0500, L501.4020 #### [facility] [address] [place], [address] Sodium [Moles/Vol] 129 mmol/L Low 136-145 [facility] Comment on above: Order Comment: 'TROP ' Serial specimen #1, #2 or #3: 1 Performed By: #### L 500.4050, L501.2450, L100.0500, L501.4020 #### [facility] [address] [place], [address] T PROT 7.5 g/dL Normal 6.4-8.2 [facility] Comment on above: Order Comment: 'TROP ' Serial specimen #1, #2 or #3: 1 Performed By: #### L 500.4050, L501.2450, L100.0500, L501.4020 #### [facility] [address] [place], [address] Urea nitrogen [Mass/Vol] 18 mg/dL Normal 7-18 [facility] Comment on above: Order Comment: 'TROP ' Serial specimen #1, #2 or #3: 1 Performed By: #### L 500.4050, L501.2450, L100.0500, L501.4020 #### [facility] [address] [place], [address] Emergency Department Summary on 10-14-2024 Emergency Department Summary [facility] Medical Records Department [address] [place] [address] Emergency Department Summary 10/14/24 MR#: [id number] Acct: [id number] Name: BRENDA LE Rep #: [id number] : 1965 58 From: Tae Holland DO 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 Smoking Status: Former smoker how long ago [...] OF PRESENT ILLNESS: 58-year-old female presents from [facility] with concern for nausea vomiting diarrhea. This is noted to begin at 10 AM. Noted sick contacts other members of the [facility]pc who have norovirus. The patient states she had copious nausea and vomiting at 10 AM. Also notes diarrhea. Notes some blood in her stool. Denies fever. Denies recent travel. No sick contacts at her [facility]. Denies chest pain. She does note chronic shortness of breath as well. She does note a cough as well. Denies urinary complaints. Last bowel movement was today. REVI (more content not included)... Normal [facility] Eosinophil percentageOrdered By: Lorraine Springer on 10-14-2024 Eosinophils/100 WBC (Bld) 0.4 % 0-5 [facility] Erythrocyte distribution wid th ratioOrdered By: Tae Holland on 10-14-2024 Erythrocyte distribution width (RBC) [Ratio] 13.9 % 11.6-14.6 [facility] Erythrocyte distribution wid th ratioOrdered By: Lorraine Springer on 10-14-2024 Erythrocyte distribution width (RBC) [Ratio] 14.0 % 11.6-14.6 [facility] Erythrocyte distribution wid th standard deviationOrdered By: Tae Holland on 10-14-2024 Erythrocyte distribution width (RBC) [Entitic vol] 44.6 fL High 35.1-43.9 [facility] Erythrocyte distribution wid th standard deviationOrdered By: Lorraine Springer on 10-14-2024 Erythrocyte distribution width (RBC) [Entitic vol] 45.5 fL High 35.1-43.9 [facility] Estimated glomerular filtrat ion rate (GFR) AmericanOrdered By: Tae Holland on 10-14-2024 Estimated GFR (MDRD) Amer 137 mL/min >60 [facility] Comment on above: GFR Calc Glomerular filtration rate ( GFR) estimationOrdered By: Tae Holland on 10-14-2024 Estimated GFR (MDRD) Non-Af Amer 113 mL/min >60 [facility] Comment on above: Non- GFR Calc Glucose measurementOrdered B y: Tae Holland on 10-14-2024 Glucose [Mass/Vol] 171 mg/dL High 74-106 [facility] Comment on above: Fasting Glucose resu lt greater than or equal to 126 mg/dL suggests DIABETES MELLITUS per A.D.A. criteria. Hematocrit Auto (Bld) [Volum e fraction]Ordered By: Tae Holland on 10-14-2024 Hematocrit (Bld) [Volume fraction] 45.8 % 37-47 [facility] Hematocrit Auto (Bld) [Volum e fraction]Ordered By: Lorraine Springer on 10-14-2024 Hematocrit (Bld) [Volume fraction] 44.2 % 37-47 [facility] Hemoglobin measurementOrdere d By: Tae Holland on 10-14-2024 Hemoglobin (Bld) [Mass/Vol] 15.1 g/dL High 12.0-15.0 [facility] Hemoglobin measurementOrdere d By: Lorraine Springer on 10-14-2024 Hemoglobin (Bld) [Mass/Vol] 14.4 g/dL 12.0-15.0 [facility] Immature granulocytes/100 WB C Auto (Bld)Ordered By: Lorraine Springer on 10-14-2024 Immature granulocytes/100 WBC (Bld) 0.600 % 0.0-0.9 [facility] Comment on above: IG% - Immature Granu locytes (promyelocytes, myelocytes and metamyelocytes) > 1% indicates that a LEFT SHIFT is Present. Influenza virus A and B and SARS-CoV-2 (COVID-19) and Respiratory syncytial virus RNAOrdered By: Tae Holland on 10-14-2024 SARS-CoV-2 (COVID-19) RNA LUIS M+probe Ql (Unsp spec) [facility] L501.4020on 10-14-2024 TROPONIN-I HS < 3 Low 3.0-54.0 [facility] Comment on above: Order Comment: 'TROP ' Serial specimen #1, #2 or #3: 1 Result Comment: Plea se Note: New Test Units and Gender Specific Reference Ranges. For more information see Policy Stat Procedure Magnet High Sensitivity Troponin (TNIH) and attachments. Performed By: #### L 501.4021 #### [facility] [address] [place], [place], [id number] Laboratory - Chemistry and C hemistry - challengeOrdered By: Tae Holland on 10-14-2024 AST [Catalytic activity/Vol] 29 U/L 15-37 [facility] Lipaseon 10-14-2024 Lipase [Catalytic activity/Vol] 176 U/L High 13-75 [facility] Comment on above: Order Comment: 'TROP ' Serial specimen #1, #2 or #3: 1 Result Comment: Plea se note: LIPASE revised reference range effective 23. New Lipase methodology. Expected to produce lower values than the previous assay method. NEW Reference Range: 13 - 75 U/L Performed By: #### L 500.4050, L501.2450, L100.0500, L501.4020 #### [facility] [address] [place], [place], [id number] Lipase measurementOrdered By : Tae Holland on 10-14-2024 Lipase [Catalytic activity/Vol] 176 U/L High 13-75 [facility] Comment on above: Please note:LIPASE r evised reference range effective 23. New Lipase methodology. Expected to produce lower values than the previous assay method. NEW Reference Range: 13 - 75 U/L Lymphocytes Auto (Unsp spec) [#/Vol]Ordered By: Lorraine Springer on 10-14-2024 Lymphocytes (Bld) [#/Vol] 1.45 10*3/uL 0.83-4.51 [facility] Lymphocytes/100 WBC Auto (Un sp spec)Ordered By: Lorraine Springer on 10-14-2024 Lymphocytes/100 WBC (Bld) 17.9 % Low 19-41 [facility] M100.678on 10-14-2024 M100.678 Pending SARS-CoV-2 (COVID 19) Negative INFLUENZA A Negative INFLUENZA B Negative RSV PCR Negative Normal [facility] Comment on above: Performed By: #### L 500.4050, L501.2450, L100.0500, L501.4020 #### [facility] [address] [place], [place], [id number] MCV (mean corpuscular volume ) determinationOrdered By: Tae Holland on 10-14-2024 MCV (RBC) [Entitic vol] 88.2 fL 81-99 [facility] MCV (mean corpuscular volume ) determinationOrdered By: Lorraine Springer on 10-14-2024 MCV (RBC) [Entitic vol] 90.0 fL 81-99 [facility] Mean corpuscular hemoglobin (MCH) determinationOrdered By: Tae Holland on 10-14-2024 MCH (RBC) [Entitic mass] 29.1 pg 27.0-32.0 [facility] Mean corpuscular hemoglobin (MCH) determinationOrdered By: Lorraine Springer on 10-14-2024 MCH (RBC) [Entitic mass] 29.3 pg 27.0-32.0 [facility] Mean corpuscular hemoglobin concentration (MCHC) determinationOrdered By: Tae Holland on 10-14-2024 MCHC (RBC) [Mass/Vol] 33.0 g/dL -36 [facility] Mean corpuscular hemoglobin concentration (MCHC) determinationOrdered By: Lorraine Springer on 10-14-2024 MCHC (RBC) [Mass/Vol] 32.6 g/dL 32-36 [facility] Mean platelet volume determi nationOrdered By: Tae Holland on 10-14-2024 Platelet mean volume (Bld) [Entitic vol] 9.6 fL 6.2-12.0 [facility] Mean platelet volume determi nationOrdered By: Lorraine Springer on 10-14-2024 Platelet mean volume (Bld) [Entitic vol] 11.1 fL 6.2-12.0 [facility] Monocyte percentageOrdered B y: Lorraine Springer on 10-14-2024 Monocytes/100 WBC (Bld) 9.5 % 0-10 [facility] Neutrophil percentageOrdered By: Lorraine Springer on 10-14-2024 Neutrophils/100 WBC (Bld) 71.1 % High 47-70 [facility] Nucleated red blood cell per centageOrdered By: Lorraine Springer on 10-14-2024 Nucleated RBC/100 WBC (Bld) [Ratio] 0 % 0-5 [facility] Platelet countOrdered By: Vivi Holland on 10-14-2024 Platelets (Bld) [#/Vol] 217 10*3/uL 150-450 [facility] Platelet countOrdered By: Anastacia Springer on 10-14-2024 Platelets (Bld) [#/Vol] 196 10*3/uL 150-450 [facility] Potassium measurementOrdered By: Tae Holland on 10-14-2024 Potassium [Moles/Vol] 4.0 mmol/L 3.5-5.1 [facility] RBC Auto (Bld) [#/Vol]Ordere d By: Tae Holland on 10-14-2024 RBC (Bld) [#/Vol] 5.19 10*6/uL 4.2-5.4 [facility] RBC Auto (Bld) [#/Vol]Ordere d By: Lorraine Springer on 10-14-2024 RBC (Bld) [#/Vol] 4.91 10*6/uL 4.2-5.4 [facility] Serum anion gap measurementO rdered By: Tae Holland on 10-14-2024 Anion gap [Moles/Vol] 10 mmol/L 5-15 [facility] Serum globulin measurementOr dered By: Tae Holland on 10-14-2024 Globulin (S) [Mass/Vol] 4.0 g/dL 2.2-4.2 [facility] Serum or plasma alanine angulo otransferase (ALT) measurementOrdered By: Tae Holland on 10-14-2024 ALT [Catalytic activity/Vol] 49 U/L 13-56 [facility] Serum or plasma albumin lawrence urement (mass/volume)Ordered By: Tae Holland on 10-14-2024 Albumin [Mass/Vol] 3.5 g/dL 3.2-5.0 [facility] Serum or plasma alkaline jakob sphatase measurementOrdered By: Tae Holland on 10-14-2024 ALP [Catalytic activity/Vol] 110 U/L 45-117 [facility] Serum or plasma calcium lawrence urement (mass/volume)Ordered By: Tea Holland on 10-14-2024 Calcium [Mass/Vol] 8.9 mg/dL 8.5-10.1 [facility] Serum or plasma creatinine m easurement (mass/volume)Ordered By: Tae Holland on 10-14-2024 Creatinine [Mass/Vol] 0.58 mg/dL 0.55-1.02 [facility] Comment on above: The validity of the calculated GFR & GFRAA in patients over 70 years has not been determined. Clinical correlation is essential. Serum or plasma urea nitroge n measurement (mass/volume)Ordered By: Tae Holland on 10-14-2024 Urea nitrogen [Mass/Vol] 18 mg/dL 7-18 [facility] Sodium levelOrdered By: Sandra Holland on 10-14-2024 Sodium [Moles/Vol] 129 mmol/L Low 136-145 [facility] Total proteinOrdered By: Gabe Holland on 10-14-2024 Protein [Mass/Vol] 7.5 g/dL 6.4-8.2 [facility] Troponin IOrdered By: Tae Holland on 10-14-2024 Troponin I High Sensitivity < 3 pg/mL Low 3.0-54.0 [facility] Comment on above: Please Note: New Janeth t Units and Gender Specific Reference Ranges. For more information see Policy Stat Procedure Magnet High Sensitivity Troponin (TNIH) and attachments. White blood cell (WBC) count Ordered By: Tae Holland on 10-14-2024 WBC (Bld) [#/Vol] 19.5 10*3/uL High 4.4-11.0 [facility] White blood cell (WBC) count Ordered By: Lorraine Springer on 10-14-2024 WBC (Bld) [#/Vol] 8.1 10*3/uL 4.4-11.0 [facility] CNOVon 09-28-2024 CNOV Normal [facility] CNOVon 09-20-2024 CNOV Normal [facility] ECG COMPLETEon 09-20-2024 ECG COMPLETE Normal [facility] Absolute neutrophil countOrd ered By: Lorraine Springer on 09-16-2024 Neutrophils (Bld) [#/Vol] 4.6 10*3/uL 2.0-7.7 [facility] Basophil percentageOrdered B y: Lorraine Springer on 09-16-2024 Basophils/100 WBC (Bld) 0.5 % 0-1 [facility] CBC W/Diff, Automatedon SMEAR COMMENT SCANNED Normal [facility] Comment on above: Performed By: #### L 500.4050, L501.2450, L100.0500, L501.4020 #### [facility] [address] [place], [place], [id number] Eosinophil percentageOrdered By: Lorraine Springer on 09-16-2024 Eosinophils/100 WBC (Bld) 0.4 % 0-5 [facility] Erythrocyte distribution wid th ratioOrdered By: Lorraine Springer on 09-16-2024 Erythrocyte distribution width (RBC) [Ratio] 14.0 % 11.6-14.6 [facility] Erythrocyte distribution wid th standard deviationOrdered By: Lorraine Springer on 09-16-2024 Erythrocyte distribution width (RBC) [Entitic vol] 44.5 fL High 35.1-43.9 [facility] Hematocrit Auto (Bld) [Volum e fraction]Ordered By: Lorraine Springer on 09-16-2024 Hematocrit (Bld) [Volume fraction] 41.7 % 37-47 [facility] Hemoglobin measurementOrdere d By: Lorraine Springer on 09-16-2024 Hemoglobin (Bld) [Mass/Vol] 13.7 g/dL 12.0-15.0 [facility] Immature granulocytes/100 WB C Auto (Bld)Ordered By: Lorraine Springer on 09-16-2024 Immature granulocytes/100 WBC (Bld) 0.400 % 0.0-0.9 [facility] Comment on above: IG% - Immature Granu locytes (promyelocytes, myelocytes and metamyelocytes) > 1% indicates that a LEFT SHIFT is Present. Lymphocytes Auto (Unsp spec) [#/Vol]Ordered By: Lorraine Springer on 09-16-2024 Lymphocytes (Bld) [#/Vol] 2.60 10*3/uL 0.83-4.51 [facility] Lymphocytes/100 WBC Auto (Un sp spec)Ordered By: Lorraine Springer on 09-16-2024 Lymphocytes/100 WBC (Bld) 33.5 % 19-41 [facility] MCV (mean corpuscular volume ) determinationOrdered By: Lorraine Springer on 09-16-2024 MCV (RBC) [Entitic vol] 88.2 fL 81-99 [facility] Manual differential comment [place] (Bld) [Interp]Ordered By: Lorraine Springer on 09-16-2024 Differential Comment SCANNED [facility] Mean corpuscular hemoglobin (MCH) determinationOrdered By: Lorraine Springer on 09-16-2024 MCH (RBC) [Entitic mass] 29.0 pg 27.0-32.0 [facility] Mean corpuscular hemoglobin concentration (MCHC) determinationOrdered By: Lorraine Springer on 09-16-2024 MCHC (RBC) [Mass/Vol] 32.9 g/dL 32-36 [facility] Mean platelet volume determi nationOrdered By: Lorraine Springer on 09-16-2024 Platelet mean volume (Bld) [Entitic vol] 11.3 fL 6.2-12.0 [facility] Monocyte percentageOrdered B y: Lorraine Springer on 09-16-2024 Monocytes/100 WBC (Bld) 5.7 % 0-10 [facility] Neutrophil percentageOrdered By: Lorraine Springer on 09-16-2024 Neutrophils/100 WBC (Bld) 59.5 % 47-70 [facility] Nucleated red blood cell per centageOrdered By: Lorraine Springer on 09-16-2024 Nucleated RBC/100 WBC (Bld) [Ratio] 0 % 0-5 [facility] Platelet countOrdered By: Anastacia Springer on 09-16-2024 Platelets (Bld) [#/Vol] 198 10*3/uL 150-450 [facility] RBC Auto (Bld) [#/Vol]Ordere d By: Lorraine Springer on 09-16-2024 RBC (Bld) [#/Vol] 4.73 10*6/uL 4.2-5.4 [facility] White blood cell (WBC) count Ordered By: Lorraine Springer on 09-16-2024 WBC (Bld) [#/Vol] 7.8 10*3/uL 4.4-11.0 [facility] CNOVon 09-08-2024 CNOV Normal [facility] Absolute neutrophil countOrd ered By: Lorraine Springer on 08-25-2024 Neutrophils (Bld) [#/Vol] 6.9 10*3/uL 2.0-7.7 [facility] Basophil percentageOrdered B y: Lorraine Springer on 08-25-2024 Basophils/100 WBC (Bld) 0.5 % 0-1 [facility] CBC W/Diff, Automatedon 08-13 Absolute Lymph 2.76 X10 3/uL Normal 0.83-4.51 [facility] Comment on above: Performed By: #### L 500.2500, L100.0100 #### [facility] [address] [place], [address] Absolute Neut 6.9 X10 3/uL Normal 2.0-7.7 [facility] Comment on above: Performed By: #### L 500.2500, L100.0100 #### [facility] [address] [place], [address] Basophils/100 WBC (Bld) 0.5 % Normal 0-1 [facility] Comment on above: Performed By: #### L 500.2500, L100.0100 #### [facility] [address] [place], [address] Eosinophils/100 WBC (Bld) 0.3 % Normal 0-5 [facility] Comment on above: Performed By: #### L 500.2500, L100.0100 #### [facility] [address] [place], [address] Erythrocyte distribution width (RBC) [Ratio] 13.7 % Normal 11.6-14.6 [facility] Comment on above: Performed By: #### L 500.2500, L100.0100 #### [facility] [address] [place], [address] Hematocrit (Bld) [Volume fraction] 44.1 % Normal 37-47 [facility] Comment on above: Performed By: #### L 500.2500, L100.0100 #### [facility] [address] [place], [address] Hemoglobin (Bld) [Mass/Vol] 14.4 g/dL Normal 12.0-15.0 [facility] Comment on above: Performed By: #### L 500.2500, L100.0100 #### [facility] [address] [place], [address] IG% 0.900 Normal 0.0-0.9 [facility] Comment on above: Result Comment: IG% - Immature Granulocytes (promyelocytes, myelocytes and metamyelocytes) > 1% indicates that a LEFT SHIFT is Present. Performed By: #### L 500.2500, L100.0100 #### [facility] [address] [place], [address] Lymphocytes/100 WBC (Bld) 26.1 % Normal 19-41 [facility] Comment on above: Performed By: #### L 500.2500, L100.0100 #### [facility] [address] [place], [address] MCH (RBC) [Entitic mass] 28.9 pg Normal 27.0-32.0 [facility] Comment on above: Performed By: #### L 500.2500, L100.0100 #### [facility] [address] [place], [address] MCHC (RBC) [Mass/Vol] 32.7 g/dL Normal 32-36 [facility] Comment on above: Performed By: #### L 500.2500, L100.0100 #### [facility] [address] [place], [address] MCV (RBC) [Entitic vol] 88.4 fL Normal 81-99 [facility] Comment on above: Performed By: #### L 500.2500, L100.0100 #### [facility] [address] [place], [address] Monocytes/100 WBC (Bld) 7.1 % Normal 0-10 [facility] Comment on above: Performed By: #### L 500.2500, L100.0100 #### [facility] [address] [place], [address] Neutrophils/100 WBC (Bld) 65.1 % Normal 47-70 [facility] Comment on above: Performed By: #### L 500.2500, L100.0100 #### [facility] [address] [place], [address] Nucleated RBC (Bld) [#/Vol] 0 10*3/uL Normal 0-5 [facility] Comment on above: Performed By: #### L 500.2500, L100.0100 #### [facility] [address] [place], [address] Platelet mean volume (Bld) [Entitic vol] 11.1 fL Normal 6.2-12.0 [facility] Comment on above: Performed By: #### L 500.2500, L100.0100 #### [facility] [address] [place], [address] Platelets (Bld) [#/Vol] 252 10*3/uL Normal 150-450 [facility] Comment on above: Performed By: #### L 500.2500, L100.0100 #### [facility] [address] [place], [address] RBC (Bld) [#/Vol] 4.99 10*6/uL Normal 4.2-5.4 [facility] Comment on above: Performed By: #### L 500.2500, L100.0100 #### [facility] [address] [place], [address] RDW SD 44.1 fl High 35.1-43.9 [facility] Comment on above: Performed By: #### L 500.2500, L100.0100 #### [facility] [address] [place], [address] WBC (Bld) [#/Vol] 10.6 10*3/uL Normal 4.4-11.0 [facility] Comment on above: Performed By: #### L 500.2500, L100.0100 #### [facility] [address] [place], [address] Eosinophil percentageOrdered By: Lorraine Springer on 08-25-2024 Eosinophils/100 WBC (Bld) 0.3 % 0-5 [facility] Erythrocyte distribution wid th ratioOrdered By: Lorraine Springer on 08-25-2024 Erythrocyte distribution width (RBC) [Ratio] 13.7 % 11.6-14.6 [facility] Erythrocyte distribution wid th standard deviationOrdered By: Lorraine Springer on 08-25-2024 Erythrocyte distribution width (RBC) [Entitic vol] 44.1 fL High 35.1-43.9 [facility] Hematocrit Auto (Bld) [Volum e fraction]Ordered By: Lorraine Springer on 08-25-2024 Hematocrit (Bld) [Volume fraction] 44.1 % 37-47 [facility] Hemoglobin measurementOrdere d By: [facility] on 08-25-2024 Hemoglobin (Bld) [Mass/Vol] 14.4 g/dL 12.0-15.0 [facility] Immature granulocytes/100 WB C Auto (Bld)Ordered By: [facility] on 08-25-[facility]24 Immature granulocytes/100 WBC (Bld) 0.900 % 0.0-0.9 [facility] Comment on above: IG% - Immature Granu locytes (promyelocytes, myelocytes and metamyelocytes) > 1% indicates that a LEFT SHIFT is Present. Lymphocytes Auto (Unsp spec) [#/Vol]Ordered By: Lorraine Springer on 08-25-2024 Lymphocytes (Bld) [#/Vol] 2.76 10*3/uL 0.83-4.51 [facility] Lymphocytes/100 WBC Auto (Un sp spec)Ordered By: Lorraine Springer on 08-25-2024 Lymphocytes/100 WBC (Bld) 26.1 % 19-41 [facility] MCV (mean corpuscular volume ) determinationOrdered By: Lorraine Springer on 08-25-2024 MCV (RBC) [Entitic vol] 88.4 fL 81-99 [facility] Mean corpuscular hemoglobin (MCH) determinationOrdered By: Lorraine Springer 08-25-2024 MCH (RBC) [Entitic mass] 28.9 pg 27.0-32.0 [facility] Mean corpuscular hemoglobin concentration (MCHC) determinationOrdered By: Lorraine Springer on 08-25-2024 MCHC (RBC) [Mass/Vol] 32.7 g/dL 32-36 [facility] Mean platelet volume determi nationOrdered By: Lorraine Springer on 08-25-2024 Platelet mean volume (Bld) [Entitic vol] 11.1 fL 6.2-12.0 [facility] Monocyte percentageOrdered B y: Lorraine Springer on 08-25-2024 Monocytes/100 WBC (Bld) 7.1 % 0-10 [facility] Neutrophil percentageOrdered By: Lorraine Springer on 08-25-2024 Neutrophils/100 WBC (Bld) 65.1 % 47-70 [facility] Nucleated red blood cell per centageOrdered By: Lorraine Springer on 08-25-2024 Nucleated RBC/100 WBC (Bld) [Ratio] 0 % 0-5 [facility] Platelet countOrdered By: Anastacia Springer on 08-25-2024 Platelets (Bld) [#/Vol] 252 10*3/uL 150-450 [facility] RBC Auto (Bld) [#/Vol]Ordere d By: Lorraine Springer on 08-25-2024 RBC (Bld) [#/Vol] 4.99 10*6/uL 4.2-5.4 [facility] White blood cell (WBC) count Ordered By: Lorraine Springer on 08-25-2024 WBC (Bld) [#/Vol] 10.6 10*3/uL 4.4-11.0 [facility] CNOVon 08-24-2024 CNOV Normal [facility] CNPNon 08-18-2024 CNPN Normal [facility] CNPNon 08-16-2024 CNPN Normal [facility] CNPNon 07-31-2024 CNPN Normal [facility] CNOVon 07-23-2024 CNOV Normal [facility] CBC W/Diff, Automatedon - PATH REV Reviewed Normal [facility] Comment on above: Result Comment: Jerry Patel M.D. 07/22/24 AMENDED REPORT 07/22/24 1355 PATH REV previously reported as: February adilson Performed By: #### L 100.0100 #### [facility] [address] [place], [address] CNPNon 07-22-2024 CNPN Normal [facility] CNPNon 07-14-2024 CNPN Normal [facility] CNOVon 07-06-2024 CNOV Normal [facility] CBC W/Diff, Automatedon 06-13 Absolute Lymph 2.07 X10 3/uL Normal 0.83-4.51 [facility] Comment on above: Performed By: #### L 100.0100 #### [facility] [address] [place], [address] Absolute Neut 5.6 X10 3/uL Normal 2.0-7.7 [facility] Comment on above: Performed By: #### L 100.0100 #### [facility] [address] [place], [address] Basophils/100 WBC (Bld) 0.5 % Normal 0-1 [facility] Comment on above: Performed By: #### L 100.0100 #### [facility] [address] [place], [address] Eosinophils/100 WBC (Bld) 0.2 % Normal 0-5 [facility] Comment on above: Performed By: #### L 100.0100 #### [facility] [address] [place], [address] Erythrocyte distribution width (RBC) [Ratio] 13.6 % Normal 11.6-14.6 [facility] Comment on above: Performed By: #### L 100.0100 #### [facility] [address] [place], [address] Hematocrit (Bld) [Volume fraction] 41.3 % Normal 37-47 [facility] Comment on above: Performed By: #### L 100.0100 #### [facility] [address] [place], [address] Hemoglobin (Bld) [Mass/Vol] 13.3 g/dL Normal 12.0-15.0 [facility] Comment on above: Performed By: #### L 100.0100 #### [facility] [address] [place], [address] IG% 0.700 Normal 0.0-0.9 [facility] Comment on above: Result Comment: IG% - Immature Granulocytes (promyelocytes, myelocytes and metamyelocytes) > 1% indicates that a LEFT SHIFT is Present. Performed By: #### L 100.0100 #### [facility] [address] [place], [address] Lymphocytes/100 WBC (Bld) 24.6 % Normal 19-41 [facility] Comment on above: Performed By: #### L 100.0100 #### [facility] [address] [place], [address] MCH (RBC) [Entitic mass] 28.4 pg Normal 27.0-32.0 [facility] Comment on above: Performed By: #### L 100.0100 #### [facility] [address] [place], [address] MCHC (RBC) [Mass/Vol] 32.2 g/dL Normal 32-36 [facility] Comment on above: Performed By: #### L 100.0100 #### [facility] [address] [place], [address] MCV (RBC) [Entitic vol] 88.1 fL Normal 81-99 [facility] Comment on above: Performed By: #### L 100.0100 #### [facility] [address] [place], [address] Monocytes/100 WBC (Bld) 7.1 % Normal 0-10 [facility] Comment on above: Performed By: #### L 100.0100 #### [facility] [address] [place], [address] Neutrophils/100 WBC (Bld) 66.9 % Normal 47-70 [facility] Comment on above: Performed By: #### L 100.0100 #### [facility] [address] [place], [address] Nucleated RBC (Bld) [#/Vol] 0 10*3/uL Normal 0-5 [facility] Comment on above: Performed By: #### L 100.0100 #### [facility] [address] [place], [address] Platelet mean volume (Bld) [Entitic vol] 9.8 fL Normal 6.2-12.0 [facility] Comment on above: Performed By: #### L 100.0100 #### [facility] [address] [place], [address] Platelets (Bld) [#/Vol] 218 10*3/uL Normal 150-450 [facility] Comment on above: Performed By: #### L 100.0100 #### [facility] [address] [place], [address] RBC (Bld) [#/Vol] 4.69 10*6/uL Normal 4.2-5.4 [facility] Comment on above: Performed By: #### L 100.0100 #### [facility] [address] [place], [address] RDW SD 43.7 fl Normal 35.1-43.9 [facility] Comment on above: Performed By: #### L 100.0100 #### [facility] [address] [place], [address] WBC (Bld) [#/Vol] 8.4 10*3/uL Normal 4.4-11.0 [facility] Comment on above: Performed By: #### L 100.0100 #### [facility] [address] [place], [address] CNPTOUTREACHon - CNPTOUTREACH Normal [facility] CBC W/Diff, Automatedon 08- Absolute Lymph 2.19 X10 3/uL Normal 0.83-4.51 [facility] Comment on above: Performed By: #### L 501.4021 #### [facility] [address] [place], [address] Absolute Neut 7.8 X10 3/uL High 2.0-7.7 [facility] Comment on above: Performed By: #### L 501.4021 #### [facility] [address] [place], [address] Basophils/100 WBC (Bld) 0.5 % Normal 0-1 [facility] Comment on above: Performed By: #### L [id number] #### [facility] [address] [place], [address] Eosinophils/100 WBC (Bld) 0.3 % Normal 0-5 [facility] Comment on above: Performed By: #### L 501.4021 #### [facility] [address] [place], [address] Erythrocyte distribution width (RBC) [Ratio] 13.4 % Normal 11.6-14.6 [facility] Comment on above: Performed By: #### L 501.4021 #### [facility] [address] [place], [address] Hematocrit (Bld) [Volume fraction] 40.4 % Normal 37-47 [facility] Comment on above: Performed By: #### L 501.4021 #### [facility] [address] [place], [address] Hemoglobin (Bld) [Mass/Vol] 13.2 g/dL Normal 12.0-15.0 [facility] Comment on above: Performed By: #### L 501.4021 #### [facility] [address] [place], [address] IG% 0.600 Normal 0.0-0.9 [facility] Comment on above: Result Comment: IG% - Immature Granulocytes (promyelocytes, myelocytes and metamyelocytes) > 1% indicates that a LEFT SHIFT is Present. Performed By: #### L 501.4021 #### [facility] [address] [place], [address] Lymphocytes/100 WBC (Bld) 20.7 % Normal 19-41 [facility] Comment on above: Performed By: #### L [id number] #### [facility] [address] [place], [address] MCH (RBC) [Entitic mass] 28.9 pg Normal 27.0-32.0 [facility] Comment on above: Performed By: #### L 501.4021 #### [facility] [address] [place], [address] MCHC (RBC) [Mass/Vol] 32.7 g/dL Normal 32-36 [facility] Comment on above: Performed By: #### L [id number] #### [facility] [address] [place], [address] MCV (RBC) [Entitic vol] 88.4 fL Normal 81-99 [facility] Comment on above: Performed By: #### L [id number] #### [facility] [address] [place], [address] Monocytes/100 WBC (Bld) 4.5 % Normal 0-10 [facility] Comment on above: Performed By: #### L [id number] #### [facility] [address] [place], [address] Neutrophils/100 WBC (Bld) 73.4 % High 47-70 [facility] Comment on above: Performed By: #### L [id number] #### [facility] [address] [place], [address] Nucleated RBC (Bld) [#/Vol] 0 10*3/uL Normal 0-5 [facility] Comment on above: Performed By: #### L [id number] #### [facility] [address] [place], [address] Platelet mean volume (Bld) [Entitic vol] 11.6 fL Normal 6.2-12.0 [facility] Comment on above: Performed By: #### L [id number] #### [facility] [address] [place], [address] Platelets (Bld) [#/Vol] 202 10*3/uL Normal 150-450 [facility] Comment on above: Performed By: #### L [id number] #### [facility] [address] [place], [address] RBC (Bld) [#/Vol] 4.57 10*6/uL Normal 4.2-5.4 [facility] Comment on above: Performed By: #### L [id number] #### [facility] [address] [place], [address] RDW SD 43.2 fl Normal 35.1-43.9 [facility] Comment on above: Performed By: #### L [id number] #### [facility] [address] [place], [address] WBC (Bld) [#/Vol] 10.6 10*3/uL Normal 4.4-11.0 [facility] Comment on above: Performed By: #### L [id number] #### [facility] [address] [place], [address] CNPNon 05-19-2024 CNPN Normal [facility] CBC W Auto Differential pane l (Bld)on 03-02-2024 Basophils (Bld) [#/Vol] 0.05 10*3/uL [facility] Basophils/100 WBC (Bld) 0.6 % [facility] Differential cell count method Nom (Bld) Auto [facility] Eosinophils (Bld) [#/Vol] 0.03 10*3/uL [facility] Eosinophils/100 WBC (Bld) 0.3 % [facility] Erythrocyte distribution width (RBC) [Ratio] 13.9 % 11.5 - 15.0 % [facility] Hematocrit (Bld) [Volume fraction] 43.6 % 36.0 - 46.0 % [facility] Hemoglobin (Bld) [Mass/Vol] 14.1 g/dL 11.5 - 15.5 g/dL [facility] Immature granulocytes (Bld) [#/Vol] 0.03 10*3/uL [facility] Immature granulocytes/100 WBC (Bld) 0.3 % [facility] Interpretation and review of laboratory results Abnormal [facility] Lymphocytes (Bld) [#/Vol] 2.53 10*3/uL [facility] Lymphocytes/100 WBC (Bld) 28.7 % [facility] MCH (RBC) [Entitic mass] 28.7 pg 26. 0 - 34.0 pg [facility] MCHC (RBC) [Mass/Vol] 32.3 g/dL 30.5 - 36.0 g/dL [facility] MCV (RBC) [Entitic vol] 88.6 fL 80.0 - 100.0 fL [facility] Monocytes (Bld) [#/Vol] 0.61 10*3/uL [facility] Monocytes/100 WBC (Bld) 6.9 % [facility] Neutrophils (Bld) [#/Vol] 5.58 10*3/uL [facility] Neutrophils/100 WBC (Bld) 63.2 % [facility] Nucleated RBC (Bld) [#/Vol] NINF [facility] Nucleated RBC/100 WBC (Bld) [Ratio] 0.0 % /100 WBC [facility] Platelet mean volume (Bld) [Entitic vol] 12.5 fL 9.0 - 12.7 fL [facility] Platelets (Bld) [#/Vol] 123 10*3/uL Low [facility] RBC (Bld) [#/Vol] 4.92 10*6/uL 3.90 - 5.2 0 m/uL [facility] WBC (Bld) [#/Vol] 8.83 10*3/uL [facility] Comprehensive metabolic 2000 panelon 03-02-2024 Albumin [Mass/Vol] 4.2 g/dL 3.9 - 4.9 g/dL [facility] ALP [Catalytic activity/Vol] 139 U/L High 34 - 123 U/L [facility] ALT [Catalytic activity/Vol] 52 U/L High 7 - 38 U/L [facility] Anion gap [Moles/Vol] 13 mmol/L 9 - 18 mmol/L [facility] AST [Catalytic activity/Vol] 38 U/L High 13 - 35 U/L [facility] Bilirubin [Mass/Vol] 0.4 mg/dL 0.2 - 1 .3 mg/dL [facility] Calcium [Mass/Vol] 10.0 mg/dL 8.5 - 10. 2 mg/dL [facility] Chloride [Moles/Vol] 98 mmol/L 97 - 10 5 mmol/L [facility] CO2 [Moles/Vol] 26 mmol/L 22 - 30 mmol/L [facility] Creatinine [Mass/Vol] 0.51 mg/dL Low 0.58 - 0.96 mg/dL [facility] GFR/1.73 sq M.predicted among non-blacks MDRD (S/P/Bld) [Vol rate/Area] 107 mL/min/{1.73_m2} - PINF [facility] Comment on above: Estimated Glomerular Filtration [...] 131 mg/dL High 74 - 99 mg/dL [facility] Comment on above: The [place] Diabete s Association (ADA) provides guidance for [...] Standards of Medical Care in Diabetes 2016, [place] Diabetes Association. Diabetes Care. 2016.39(Suppl 1). Interpretation and review of laboratory results Abnormal [facility] Potassium [Moles/Vol] 4.6 mmol/L 3.7 - 5.1 mmol/L [facility] Protein [Mass/Vol] 7.7 g/dL 6.3 - 8.0 g/dL [facility] Sodium [Moles/Vol] 137 mmol/L 136 - 144 mmol/L [facility] Urea nitrogen [Mass/Vol] 19 mg/dL 7 - 21 mg/dL [facility] FOLATE, SERUMon 03-02-2024 Folate [Mass/Vol] 15.4 ng/mL 4.7 - PINF ng/mL [facility] Folate [Mass/Vol]on 03-02-20 Interpretation and review of laboratory results Normal [facility] HbA1c (Bld)on 03-02-2024 Average glucose Estimated from glycated hemoglobin (Bld) [Mass/Vol] 166 mg/dL [facility] Comment on above: eAG: (Estimated aver age glucose) is a calculated value from HgbA1c and is logistics service representative of the average blood glucose level in the last 2-3 month period. HbA1c (Bld) [Mass fraction] 7.4 % High 4.3 - 5.6 % [facility] Comment on above: [place] Diabetes As sociation guidelines indicate that patients with HgbA1c in the range 5.7-6.4% are at increased risk for development of diabetes, and intervention by lifestyle modification may be beneficial. HgbA1c greater or equal to 6.5% is considered diagnostic of diabetes. Interpretation and review of laboratory results Abnormal [facility] MAGNESIUMon 03-02-2024 Magnesium [Mass/Vol] 2.3 mg/dL 1.7 - 2 .3 mg/dL [facility] Magnesium [Mass/Vol]on 03-02 Interpretation and review of laboratory results Normal [facility] No Panel Informationon 03-02 Interpretation and review of laboratory results Normal [facility] T4 FREE/FREE THYROXINEon Free T4 [Mass/Vol] 0.9 ng/dL 0.9 - 1.7 ng/dL [facility] THYROID STIMULATING HORMONEo n 03-02-2024 TSH Qn 1.620 m[IU]/L [facility] Urinalysis complete panel (U )on 03-02-2024 Bacteria LM.HPF (Urine sed) [#/Area] Negative Negative /HPF [facility] Bilirubin Ql (U) Negative Negative [facility] Clarity (Unsp spec) Clear Clear [facility] Color (U) Yellow Yellow [facility] Epithelial cells LM.HPF (Urine sed) [#/Area] None Seen /HPF [facility] Glucose Test strip (U) [Mass/Vol] 3+ Abnormal Negative [facility] Hemoglobin Ql (U) Negative Negative [facility] Hyaline casts (Urine sed) [#/Area] 0 /[LPF] 0 /LPF [facility] Interpretation and review of laboratory results Abnormal [facility] Ketones Ql (U) Negative Negative [facility] Leukocyte esterase Test strip Ql (U) Negative Negative [facility] Nitrite Ql (U) Negative Negative [facility] pH (U) 6.5 [pH] NINF - 8.5 [facility] Protein (U) [Mass/Vol] Negative Negative Cl [facility] RBC LM.HPF (Urine sed) [#/Area] 0-2 /HPF 0-2 /HPF [facility] Specific gravity (U) [Rel density] 1.009 1.005 - 1.030 [facility] Urobilinogen Ql (U) 0.2 EU/dL 0.2-1.0 EU/dL [facility] WBC LM.HPF (Urine sed) [#/Area] 0-5 /HPF 0-5 /HPF [facility] This test was [employer] and its performance characteristics determined by [facility]'s Koby [facility] Pathology and Laboratory Medicine [place] ([facility]). It has not been cleared or approved by the FDA. -[facility] is regulated under CLIA as qualified to perform high-complexity testing. This test is used for clinical purposes. It should not be regarded as investigational or for research. [facility] Absolute lymphocyte countOrd ered By: Lorraine Springer on 02-03-2024 Lymphocytes Auto (Unsp spec) [#/Vol] 2.53 10*3/uL 0.83-4.51 [facility] Automated lymphocyte count a s percentage of total leukocytesOrdered By: Lorraine Springer on 02-03-2024 Lymphocytes/100 WBC Auto (Unsp spec) 25.5 % 19-41 [facility] Basophil percentageOrdered B y: Lorraine Springer on 02-03-2024 Basophils/100 WBC (Bld) 0.4 % 0-1 [facility] Eosinophils/100 WBC (Bld) 0.5 % 0-5 [facility] Hemoglobin (Bld) [Mass/Vol] 13.5 g/dL 12.0-15.0 [facility] Monocytes/100 WBC (Bld) 6.8 % 0-10 [facility] Neutrophils (Bld) [#/Vol] 6.6 10*3/uL 2.0-7.7 [facility] Neutrophils/100 WBC (Bld) 66.5 % 47-70 [facility] WBC (Bld) [#/Vol] 9.9 10*3/uL 4.4-11.0 [facility] Determination of erythrocyte mean corpuscular volume (MCV)Ordered By: Lorraine Springer on 02-03-2024 MCV (RBC) [Entitic vol] 88.7 fL 81-99 [facility] Erythrocyte distribution wid th ratioOrdered By: [facility] on 02-03-2024 Erythrocyte distribution width (RBC) [Ratio] 13.8 % 11.6-14.6 [facility] Erythrocyte distribution wid th standard deviationOrdered By: [facility] on 02-03-2024 Erythrocyte distribution width (RBC) [Entitic vol] 44.4 fL 35.1-43.9 [facility] Hematocrit Auto (Bld) [Volum e fraction]Ordered By: Lorraine Springer on 02-03-2024 Hematocrit (Bld) [Volume fraction] 41.7 % 37-47 [facility] Immature granulocytes/100 WB C Auto (Bld)Ordered By: Lorraine Springer on 02-03-2024 Immature granulocytes/100 WBC (Bld) 0.300 % 0.0-0.9 [facility] Comment on above: IG% - Immature Granu locytes (promyelocytes, myelocytes and metamyelocytes) > 1% indicates that a LEFT SHIFT is Present. Laboratory - Hematology and Cell countsOrdered By: Lorraine Springer on 02-03-2024 MCH (RBC) [Entitic mass] 28.7 pg 27.0-32.0 [facility] MCHC (RBC) [Mass/Vol] 32.4 g/dL 32-36 [facility] Nucleated RBC/100 WBC (Bld) [Ratio] 0 % 0-5 [facility] Platelet mean volume (Bld) [Entitic vol] 11.1 fL 6.2-12.0 [facility] Platelets (Bld) [#/Vol] 190 10*3/uL 150-450 [facility] RBC Auto (Bld) [#/Vol]Ordere d By: Lorraine Springer on 02-03-2024 RBC (Bld) [#/Vol] 4.70 10*6/uL 4.2-5.4 [facility] Absolute lymphocyte countOrd ered By: Lorraine Springer on 01-07-2024 Lymphocytes Auto (Unsp spec) [#/Vol] 1.58 10*3/uL 0.83-4.51 [facility] Automated lymphocyte count a s percentage of total leukocytesOrdered By: Lorraine Springer on 01-07-2024 Lymphocytes/100 WBC Auto (Unsp spec) 21.1 % 19-41 [facility] Basophil percentageOrdered B y: Lorraine Springer on 01-07-2024 Basophils/100 WBC (Bld) 0.4 % 0-1 [facility] Eosinophils/100 WBC (Bld) 0.1 % 0-5 [facility] Hemoglobin (Bld) [Mass/Vol] 13.1 g/dL 12.0-15.0 [facility] Monocytes/100 WBC (Bld) 3.7 % 0-10 [facility] Neutrophils (Bld) [#/Vol] 5.6 10*3/uL 2.0-7.7 [facility] Neutrophils/100 WBC (Bld) 74.3 % 47-70 [facility] WBC (Bld) [#/Vol] 7.5 10*3/uL 4.4-11.0 [facility] Determination of erythrocyte mean corpuscular volume (MCV)Ordered By: Lorraine Springer on 01-07-2024 MCV (RBC) [Entitic vol] 89.5 fL 81-99 [facility] Erythrocyte distribution wid th ratioOrdered By: [facility] on 01-07-2024 Erythrocyte distribution width (RBC) [Ratio] 13.7 % 11.6-14.6 [facility] Erythrocyte distribution wid th standard deviationOrdered By: [facility] Hospital[facility] on 01-07-2024 Erythrocyte distribution width (RBC) [Entitic vol] 44.7 fL 35.1-43.9 [facility] Hematocrit Auto (Bld) [Volum e fraction]Ordered By: [facility] on 01-07-2024 Hematocrit (Bld) [Volume fraction] 41.1 % 37-47 [facility] Immature granulocytes/100 WB C Auto (Bld)Ordered By: [facility] on 01-07-2024 Immature granulocytes/100 WBC (Bld) 0.400 % 0.0-0.9 [facility] Comment on above: IG% - Immature Granu locytes (promyelocytes, myelocytes and metamyelocytes) > 1% indicates that a LEFT SHIFT is Present. Laboratory - Hematology and Cell countsOrdered By: Lorraine Springer on 01-07-2024 MCH (RBC) [Entitic mass] 28.5 pg 27.0-32.0 [facility] MCHC (RBC) [Mass/Vol] 31.9 g/dL 32-36 [facility] Nucleated RBC/100 WBC (Bld) [Ratio] 0 % 0-5 [facility] Platelet mean volume (Bld) [Entitic vol] 10.8 fL 6.2-12.0 [facility] Platelets (Bld) [#/Vol] 188 10*3/uL 150-450 [facility] RBC Auto (Bld) [#/Vol]Ordere d By: Lorraine Springer on 01-07-2024 RBC (Bld) [#/Vol] 4.59 10*6/uL 4.2-5.4 [facility] Absolute lymphocyte countOrd ered By: Jey Quesada on 12-13-2023 Lymphocytes Auto (Unsp spec) [#/Vol] 1.30 10*3/uL 0.83-4.51 [facility] Automated lymphocyte count a s percentage of total leukocytesOrdered By: Jey Quesada on 12-13-2023 Lymphocytes/100 WBC Auto (Unsp spec) 8.5 % 19-41 [facility] Basophil percentageOrdered B y: Jey Quesada on 12-13-2023 Basophil percentage 0-5 SEEN /hpf 0-5 [facility] Basophils/100 WBC (Bld) 0.2 % 0-1 [facility] Bilirubin [Mass/Vol] 0.50 mg/dL 0.20-1.00 [facility] Comment on above: For patients on eltr ombopag therapy, use of Dimension Magnet TBIL is not recommended. Chloride [Moles/Vol] 100 mmol/L 98-107 [facility] Eosinophils/100 WBC (Bld) 0.3 % 0-5 [facility] Glucose [Mass/Vol] 146 mg/dL 74-106 [facility] Comment on above: Fasting Glucose resu lt greater than or equal to 126 mg/dL suggests DIABETES MELLITUS per A.D.A. criteria. Hemoglobin (Bld) [Mass/Vol] 14.1 g/dL 12.0-15.0 [facility] Monocytes/100 WBC (Bld) 7.2 % 0-10 [facility] Neutrophils (Bld) [#/Vol] 12.8 10*3/uL 2.0-7.7 [facility] Neutrophils/100 WBC (Bld) 83.5 % 47-70 [facility] Potassium [Moles/Vol] 4.1 mmol/L 3.5-5.1 [facility] Protein [Mass/Vol] 7.2 g/dL 6.4-8.2 [facility] Sodium [Moles/Vol] 129 mmol/L 136-145 [facility] WBC (Bld) [#/Vol] 15.3 10*3/uL 4.4-11.0 [facility] Bilirubin Test strip Ql (U)O rdered By: Jey Quesada on 12-13-2023 Bilirubin Ql (U) Negative Negative [facility] Determination of erythrocyte mean corpuscular volume (MCV)Ordered By: Jey Quesada on 12-13-2023 MCV (RBC) [Entitic vol] 87.1 fL 81-99 [facility] Erythrocyte distribution wid th ratioOrdered By: Jey Quesada on 12-13-2023 Erythrocyte distribution width (RBC) [Ratio] 13.5 % 11.6-14.6 [facility] Erythrocyte distribution wid th standard deviationOrdered By: Jey Quesada on 12-13-2023 Erythrocyte distribution width (RBC) [Entitic vol] 42.6 fL 35.1-43.9 [facility] Hematocrit Auto (Bld) [Volum e fraction]Ordered By: Jey Quesada on 12-13-2023 Hematocrit (Bld) [Volume fraction] 42.7 % 37-47 [facility] Immature granulocytes/100 WB C Auto (Bld)Ordered By: Jey Quesada on 12-13-2023 Immature granulocytes/100 WBC (Bld) 0.300 % 0.0-0.9 [facility] Comment on above: IG% - Immature Granu locytes (promyelocytes, myelocytes and metamyelocytes) > 1% indicates that a LEFT SHIFT is Present. Ketones Test strip Ql (U)Ord ered By: Jey Quesada on 12-13-2023 Ketones Ql (U) 5 mg/dl Negative [facility] Laboratory - Chemistry and C hemistry - challengeOrdered By: Jey Quesada on 12-13-2023 Albumin/Globulin [Mass ratio] 0.9 {ratio} 0.9-2.4 [facility] ALP [Catalytic activity/Vol] 141 U/L 45-117 [facility] ALT [Catalytic activity/Vol] 43 U/L 13-56 [facility] CO2 [Moles/Vol] 22.0 mmol/L 21.0-32.0 [facility] Globulin (S) [Mass/Vol] 3.7 g/dL 2.2-4.2 [facility] Lipase [Catalytic activity/Vol] 37 U/L 13-75 [facility] Comment on above: Please note:LIPASE r evised reference range effective 23. New Lipase methodology. Expected to produce lower values than the previous assay method. NEW Reference Range: 13 - 75 U/L Urea nitrogen/Creatinine [Mass ratio] 39.8 mg/mg 10-20 [facility] Laboratory - Hematology and Cell countsOrdered By: Jey Quesada on 12-13-2023 MCH (RBC) [Entitic mass] 28.8 pg 27.0-32.0 [facility] MCHC (RBC) [Mass/Vol] 33.0 g/dL 32-36 [facility] Nucleated RBC/100 WBC (Bld) [Ratio] 0 % 0-5 [facility] Platelet mean volume (Bld) [Entitic vol] 9.5 fL 6.2-12.0 [facility] Platelets (Bld) [#/Vol] 226 10*3/uL 150-450 [facility] Laboratory - Microbiology an d Antimicrobial susceptibilityOrdered By: Jey Quesada on 12-13-2023 SARS-CoV-2 (COVID-19) RNA LUIS M+probe Ql (Unsp spec) [facility] SARS-CoV-2 (COVID-19) RNA LUIS M+probe Ql (Unsp spec) [facility] Mucus LM Ql (Urine sed)Order ed By: Jey Quesada on 12-13-2023 Mucus Ql (Urine sed) 0 SEEN /hpf [facility] Nitrite Test strip Ql (U)Ord ered By: Jey Quesada on 12-13-2023 Nitrite Ql (U) Negative Negative [facility] No Panel InformationOrdered By: Jey Quesada on 12-13-2023 Urine RBC 0 SEEN /hpf 0-5 [facility] Estimated Creatinine Clearance Calc 104.39 ml/min [facility] Estimated GFR (MDRD) Amer 144 mL/min >60 [facility] Comment on above: GFR Calc Estimated GFR (MDRD) Non-Af Amer 119 mL/min >60 [facility] Comment on above: Non- GFR Calc Protein Test strip Ql (U)Ord ered By: Jey Quesada on 12-13-2023 Protein Ql (U) Negative Negative [facility] RBC Auto (Bld) [#/Vol]Ordere d By: Jey Quesada on 12-13-2023 RBC (Bld) [#/Vol] 4.90 10*6/uL 4.2-5.4 [facility] Serum or plasma calcium lawrence urement (mass/volume)Ordered By: Jey Quesada on 12-13-2023 Calcium [Mass/Vol] 9.1 mg/dL 8.5-10.1 [facility] Serum or plasma creatinine m easurement (mass/volume)Ordered By: Jey Quesada on 12-13-2023 Creatinine [Mass/Vol] 0.55 mg/dL 0.55-1.02 [facility] Comment on above: The validity of the calculated GFR & GFRAA in patients over 70 years has not been determined. Clinical correlation is essential. Serum or plasma urea nitroge n measurement (mass/volume)Ordered By: Jey Quesada on 12-13-2023 Urea nitrogen [Mass/Vol] 22 mg/dL 7-18 [facility] Squamous epithelial cells de tection in urine sediment by light microscopyOrdered By: Jey Quesada on 12-13-2023 Epithelial cells.squamous LM Ql (Urine sed) 0-5 SEEN /hpf 5-10 [facility] Thin prep Papanicolaou smear with manual screeningOrdered By: Jey Quesada on 12-13-2023 Thin prep Papanicolaou smear with manual screening 3.5 g/dL 3.2-5.0 [facility] Thin prep Papanicolaou smear with manual screening 23 U/L 15-37 [facility] Thin prep Papanicolaou smear with manual screening 7 5-15 [facility] Urine blood detectionOrdered By: Jey Quesada on 12-13-2023 RBC Ql (U) Negative Negative [facility] Urine clarityOrdered By: Trevor Quesada on 12-13-2023 Clarity (U) Clear Clear [facility] Urine color determinationOrd ered By: Jey Quesada on 12-13-2023 Color (U) Straw Yellow [facility] Urine glucose detectionOrder ed By: Jey Quesada on 12-13-2023 Glucose Ql (U) 1000 mg/dl Normal [facility] Urine leukocyte esterase det ection by dipstickOrdered By: Jey Quesada on 12-13-2023 Leukocyte esterase Test strip Ql (U) 25 /ul Negative [facility] Urine pHOrdered By: Jey holloway on 12-13-2023 pH (U) 6.0 [pH] 5.0 - 8.0 [facility] Urine sediment bacteria coun t by microscopy (number/high power field)Ordered By: Jey Quesada on 12-13-2023 Bacteria LM.HPF (Urine sed) [#/Area] 0 /[HPF] None Seen [facility] Urine specific gravity measu rementOrdered By: Jey Quesada on 12-13-2023 Specific gravity (U) [Rel density] 1.010 1.002-1.030 [facility] Urine urobilinogen measureme ntOrdered By: Jey Quesada on 12-13-2023 Urobilinogen Ql (U) Normal mg/dl Normal [facility] Absolute lymphocyte countOrd ered By: Lorraine Springer on 11-19-2023 Lymphocytes Auto (Unsp spec) [#/Vol] 2.19 10*3/uL 0.83-4.51 [facility] Automated lymphocyte count a s percentage of total leukocytesOrdered By: Lorraine Springer on 11-19-2023 Lymphocytes/100 WBC Auto (Unsp spec) 23.3 % 19-41 [facility] Basophil percentageOrdered B y: Lorraine Springer on 11-19-2023 Basophils/100 WBC (Bld) 0.5 % 0-1 [facility] Eosinophils/100 WBC (Bld) 0.1 % 0-5 [facility] Hemoglobin (Bld) [Mass/Vol] 14.6 g/dL 12.0-15.0 [facility] Monocytes/100 WBC (Bld) 5.8 % 0-10 [facility] Neutrophils (Bld) [#/Vol] 6.6 10*3/uL 2.0-7.7 [facility] Neutrophils/100 WBC (Bld) 69.9 % 47-70 [facility] WBC (Bld) [#/Vol] 9.4 10*3/uL 4.4-11.0 [facility] Determination of erythrocyte mean corpuscular volume (MCV)Ordered By: Lorraine Springer on 11-19-2023 MCV (RBC) [Entitic vol] 90.4 fL 81-99 [facility] Erythrocyte distribution wid th ratioOrdered By: Lorraine Springer on 11-19-2023 Erythrocyte distribution width (RBC) [Ratio] 13.6 % 11.6-14.6 [facility] Erythrocyte distribution wid th standard deviationOrdered By: Lorraine Springer on 11-19-2023 Erythrocyte distribution width (RBC) [Entitic vol] 45.4 fL 35.1-43.9 [facility] Hematocrit Auto (Bld) [Volum e fraction]Ordered By: Lorraine Springer on 11-19-2023 Hematocrit (Bld) [Volume fraction] 46.2 % 37-47 [facility] Immature granulocytes/100 WB C Auto (Bld)Ordered By: Lorraine Springer on 11-19-2023 Immature granulocytes/100 WBC (Bld) 0.400 % 0.0-0.9 [facility] Comment on above: IG% - Immature Granu locytes (promyelocytes, myelocytes and metamyelocytes) > 1% indicates that a LEFT SHIFT is Present. Laboratory - Hematology and Cell countsOrdered By: Lorraine Springer on 11-19-2023 MCH (RBC) [Entitic mass] 28.6 pg 27.0-32.0 [facility] MCHC (RBC) [Mass/Vol] 31.6 g/dL 32-36 [facility] Nucleated RBC/100 WBC (Bld) [Ratio] 0 % 0-5 [facility] Platelet mean volume (Bld) [Entitic vol] 11.3 fL 6.2-12.0 [facility] Platelets (Bld) [#/Vol] 202 10*3/uL 150-450 [facility] RBC Auto (Bld) [#/Vol]Ordere d By: Lorraine Springer on 11-19-2023 RBC (Bld) [#/Vol] 5.11 10*6/uL 4.2-5.4 [facility] Absolute lymphocyte countOrd ered By: Lorraine Springer on 10-22-2023 Lymphocytes Auto (Unsp spec) [#/Vol] 1.91 10*3/uL 0.83-4.51 [facility] Basophil percentageOrdered B y: Lorraine Springer on 10-22-2023 Basophils/100 WBC (Bld) 0.6 % 0-1 [facility] Eosinophils/100 WBC (Bld) 4.5 % 0-5 [facility] Neutrophils (Bld) [#/Vol] 5.2 10*3/uL 2.0-7.7 [facility] Neutrophils/100 WBC (Bld) 62.0 % 47-70 [facility] WBC (Bld) [#/Vol] 8.3 10*3/uL 4.4-11.0 [facility] Blood erythrocytes count (nu mber/volume)Ordered By: Lorraine Springer on 10-22-2023 RBC (Bld) [#/Vol] 4.95 10*6/uL 4.2-5.4 [facility] Blood hemoglobin measurement (mass/volume)Ordered By: Lorraine Springer on 10-22-2023 Hemoglobin (Bld) [Mass/Vol] 14.4 g/dL 12.0-15.0 [facility] Blood lymphocytes/100 leukoc ytesOrdered By: Lorraine Springer on 10-22-2023 Lymphocytes/100 WBC (Bld) 23.0 % 19-41 [facility] Blood manual differential co mment interpretation (narrative result)Ordered By: Lorraine Springer on 10-22-2023 Manual differential comment Diego (Bld) [Interp] SCANNED [facility] Blood monocytes/100 leukocyt esOrdered By: Lorraine Springer on 10-22-2023 Monocytes/100 WBC (Bld) 9.5 % 0-10 [facility] Blood platelet mean volumeOr dered By: Lorraine Springer on 10-22-2023 Platelet mean volume (Bld) [Entitic vol] 9.9 fL 6.2-12.0 [facility] Determination of erythrocyte mean corpuscular volume (MCV)Ordered By: Lorraine Springer on 10-22-2023 MCV (RBC) [Entitic vol] 90.7 fL 81-99 [facility] Hematocrit Auto (Bld) [Volum e fraction]Ordered By: Lorraine Springer on 10-22-2023 Hematocrit (Bld) [Volume fraction] 44.9 % 37-47 [facility] Laboratory - Hematology and Cell countsOrdered By: Lorraine Springer on 10-22-2023 Erythrocyte distribution width (RBC) [Entitic vol] 46.6 fL 35.1-43.9 [facility] Erythrocyte distribution width (RBC) [Ratio] 14.0 % 11.6-14.6 [facility] Immature granulocytes/100 WBC (Bld) 0.400 % 0.0-0.9 [facility] Comment on above: IG% - Immature Granu locytes (promyelocytes, myelocytes and metamyelocytes) > 1% indicates that a LEFT SHIFT is Present. MCH (RBC) [Entitic mass] 29.1 pg 27.0-32.0 [facility] Nucleated RBC/100 WBC (Bld) [Ratio] 0 % 0-5 [facility] MCHC Auto (RBC) [Mass/Vol]Or dered By: Lorraine Springer on 10-22-2023 MCHC (RBC) [Mass/Vol] 32.1 g/dL 32-36 [facility] Platelets bldOrdered By: Moon Springer on 10-22-2023 Platelets (Bld) [#/Vol] 217 10*3/uL 150-450 [facility] Absolute lymphocyte countOrd ered By: Lorraine Springer on 09-17-2023 Lymphocytes Auto (Unsp spec) [#/Vol] 1.96 10*3/uL 0.83-4.51 [facility] Basophil percentageOrdered B y: Lorraine Springer on 09-17-2023 Basophils/100 WBC (Bld) 0.6 % 0-1 [facility] Eosinophils/100 WBC (Bld) 0.0 % 0-5 [facility] Neutrophils (Bld) [#/Vol] 4.6 10*3/uL 2.0-7.7 [facility] Neutrophils/100 WBC (Bld) 65.4 % 47-70 [facility] WBC (Bld) [#/Vol] 7.0 10*3/uL 4.4-11.0 [facility] Blood erythrocytes count (nu mber/volume)Ordered By: Lorraine Springer on 09-17-2023 RBC (Bld) [#/Vol] 4.75 10*6/uL 4.2-5.4 [facility] Blood hemoglobin measurement (mass/volume)Ordered By: Lorraine Springer on 09-17-2023 Hemoglobin (Bld) [Mass/Vol] 13.8 g/dL 12.0-15.0 [facility] Blood lymphocytes/100 leukoc ytesOrdered By: Lorraine Springer on 09-17-2023 Lymphocytes/100 WBC (Bld) 28.1 % 19-41 [facility] Blood monocytes/100 leukocyt esOrdered By: Lorraine Springer on 09-17-2023 Monocytes/100 WBC (Bld) 5.6 % 0-10 [facility] Blood platelet mean volumeOr dered By: Lorraine Springer on 09-17-2023 Platelet mean volume (Bld) [Entitic vol] 10.9 fL 6.2-12.0 [facility] Determination of erythrocyte mean corpuscular volume (MCV)Ordered By: Lorraine Springer on 09-17-2023 MCV (RBC) [Entitic vol] 92.4 fL 81-99 [facility] Hematocrit Auto (Bld) [Volum e fraction]Ordered By: Lorraine Springer on 09-17-2023 Hematocrit (Bld) [Volume fraction] 43.9 % 37-47 [facility] Laboratory - Hematology and Cell countsOrdered By: [facility] on 09-17-2023 Erythrocyte distribution width (RBC) [Entitic vol] 46.8 fL 35.1-43.9 [facility] Erythrocyte distribution width (RBC) [Ratio] 13.8 % 11.6-14.6 [facility] Immature granulocytes/100 WBC (Bld) 0.300 % 0.0-0.9 [facility] Comment on above: IG% - Immature Granu locytes (promyelocytes, myelocytes and metamyelocytes) > 1% indicates that a LEFT SHIFT is Present. MCH (RBC) [Entitic mass] 29.1 pg 27.0-32.0 [facility] Nucleated RBC/100 WBC (Bld) [Ratio] 0 % 0-5 [facility] MCHC Auto (RBC) [Mass/Vol]Or dered By: Lorraine Springer on 09-17-2023 MCHC (RBC) [Mass/Vol] 31.4 g/dL 32-36 [facility] Platelets bldOrdered By: Moon Springer on 09-17-2023 Platelets (Bld) [#/Vol] 210 10*3/uL 150-450 [facility] Absolute lymphocyte countOrd ered By: Lorraine Springer on 08-19-2023 Lymphocytes Auto (Unsp spec) [#/Vol] 2.06 10*3/uL 0.83-4.51 [facility] Basophil percentageOrdered B y: Lorraine Springer on 08-19-2023 Basophils/100 WBC (Bld) 0.4 % 0-1 [facility] Eosinophils/100 WBC (Bld) 3.3 % 0-5 [facility] Neutrophils (Bld) [#/Vol] 13.0 10*3/uL 2.0-7.7 [facility] Neutrophils/100 WBC (Bld) 79.2 % 47-70 [facility] WBC (Bld) [#/Vol] 16.5 10*3/uL 4.4-11.0 [facility] Blood erythrocytes count (nu mber/volume)Ordered By: Lorraine Springer on 08-19-2023 RBC (Bld) [#/Vol] 5.07 10*6/uL 4.2-5.4 [facility] Blood hemoglobin measurement (mass/volume)Ordered By: Lorraine Springer on 08-19-2023 Hemoglobin (Bld) [Mass/Vol] 14.7 g/dL 12.0-15.0 [facility] Blood lymphocytes/100 leukoc ytesOrdered By: Lorraine Springer on 08-19-2023 Lymphocytes/100 WBC (Bld) 12.5 % 19-41 [facility] Blood monocytes/100 leukocyt esOrdered By: Lorraine Springer on 08-19-2023 Monocytes/100 WBC (Bld) 3.3 % 0-10 [facility] Blood platelet mean volumeOr dered By: Lorraine Springer on 08-19-2023 Platelet mean volume (Bld) [Entitic vol] 11.3 fL 6.2-12.0 [facility] Determination of erythrocyte mean corpuscular volume (MCV)Ordered By: Lorraine Springer on 08-19-2023 MCV (RBC) [Entitic vol] 89.7 fL 81-99 [facility] Hematocrit Auto (Bld) [Volum e fraction]Ordered By: Lorraine Springer on 08-19-2023 Hematocrit (Bld) [Volume fraction] 45.5 % 37-47 [facility] Laboratory - Hematology and Cell countsOrdered By: Lorraine Springer on 08-19-2023 Erythrocyte distribution width (RBC) [Entitic vol] 42.5 fL 35.1-43.9 [facility] Erythrocyte distribution width (RBC) [Ratio] 13.1 % 11.6-14.6 [facility] Immature granulocytes/100 WBC (Bld) 1.300 % 0.0-0.9 [facility] Comment on above: IG% - Immature Granu locytes (promyelocytes, myelocytes and metamyelocytes) > 1% indicates that a LEFT SHIFT is Present. MCH (RBC) [Entitic mass] 29.0 pg 27.0-32.0 [facility] Nucleated RBC/100 WBC (Bld) [Ratio] 0 % 0-5 [facility] MCHC Auto (RBC) [Mass/Vol]Or dered By: Lorraine Springer on 08-19-2023 MCHC (RBC) [Mass/Vol] 32.3 g/dL 32-36 [facility] Platelets bldOrdered By: Moon Springer on 08-19-2023 Platelets (Bld) [#/Vol] 256 10*3/uL 150-450 [facility] Absolute lymphocyte countOrd ered By: Hesham Noguera on 08-16-2023 Lymphocytes Auto (Unsp spec) [#/Vol] 2.00 10*3/uL 0.83-4.51 [facility] Basophil percentageOrdered B y: Hesham Noguera on 08-16-2023 Basophil percentage 3.1 mg/dL 2.5-4.9 [facility] Basophils/100 WBC (Bld) 0.2 % 0-1 [facility] Chloride [Moles/Vol] 107 mmol/L 98-[address] [facility] Eosinophils/100 WBC (Bld) 0.0 % 0-5 [facility] Glucose [Mass/Vol] 173 mg/dL 74-106 [facility] Comment on above: Fasting Glucose resu lt greater than or equal to 126 mg/dL suggests DIABETES MELLITUS per A.D.A. criteria. Neutrophils (Bld) [#/Vol] 12.8 10*3/uL 2.0-7.7 [facility] Neutrophils/100 WBC (Bld) 81.8 % 47-70 [facility] Potassium [Moles/Vol] 4.2 mmol/L 3.5-5.1 [facility] Sodium [Moles/Vol] 140 mmol/L 136-145 [facility] WBC (Bld) [#/Vol] 15.7 10*3/uL 4.4-11.0 [facility] Blood erythrocytes count (nu mber/volume)Ordered By: Hesham Noguera on 08-16-2023 RBC (Bld) [#/Vol] 4.49 10*6/uL 4.2-5.4 [facility] Blood hemoglobin measurement (mass/volume)Ordered By: Hesham Noguera on 08-16-2023 Hemoglobin (Bld) [Mass/Vol] 13.1 g/dL 12.0-15.0 [facility] Blood lymphocytes/100 leukoc ytesOrdered By: Hesham Noguera on 08-16-2023 Lymphocytes/100 WBC (Bld) 12.7 % 19-41 [facility] Blood monocytes/100 leukocyt esOrdered By: Hesham Noguera on 08-16-2023 Monocytes/100 WBC (Bld) 4.6 % 0-10 [facility] Blood platelet mean volumeOr dered By: Hesham Noguera on 08-16-2023 Platelet mean volume (Bld) [Entitic vol] 11.2 fL 6.2-12.0 [facility] Determination of erythrocyte mean corpuscular volume (MCV)Ordered By: Hesham Noguera on 08-16-2023 MCV (RBC) [Entitic vol] 92.4 fL 81-99 [facility] Glucose Glucometer (BldC) [M ass/Vol]Ordered By: Hesham Noguera on 08-16-2023 Glucose [Mass/Vol] 206 mg/dL 74-106 [facility] Comment on above: MANAGEMENT OF PATIEN T CARE PER NURSING PROTOCOL Hematocrit Auto (Bld) [Volum e fraction]Ordered By: Hesham Noguera on 08-16-2023 Hematocrit (Bld) [Volume fraction] 41.5 % 37-47 [facility] Laboratory - Chemistry and C hemistry - challengeOrdered By: Hesham Noguera on 08-16-2023 CO2 [Moles/Vol] 24.0 mmol/L 21.0-32.0 [facility] Magnesium [Mass/Vol] 2.4 mg/dL 1.6-2.6 [facility] Urea nitrogen/Creatinine [Mass ratio] 31.3 mg/mg 10-20 [facility] Laboratory - Hematology and Cell countsOrdered By: Hesham Noguera on 08-16-2023 Erythrocyte distribution width (RBC) [Entitic vol] 46.0 fL 35.1-43.9 [facility] Erythrocyte distribution width (RBC) [Ratio] 13.5 % 11.6-14.6 [facility] Immature granulocytes/100 WBC (Bld) 0.700 % 0.0-0.9 [facility] Comment on above: IG% - Immature Granu locytes (promyelocytes, myelocytes and metamyelocytes) > 1% indicates that a LEFT SHIFT is Present. MCH (RBC) [Entitic mass] 29.2 pg 27.0-32.0 [facility] Nucleated RBC/100 WBC (Bld) [Ratio] 0 % 0-5 [facility] MCHC Auto (RBC) [Mass/Vol]Or dered By: Hesham Noguera on 08-16-2023 MCHC (RBC) [Mass/Vol] 31.6 g/dL 32-36 [facility] No Panel InformationOrdered By: Hesham Noguera on 08-16-2023 Estimated Creatinine Clearance Calc 89.62 ml/min [facility] Estimated GFR (MDRD) Amer 158 mL/min >60 [facility] Comment on above: GFR Calc Estimated GFR (MDRD) Non-Af Amer 131 mL/min >60 [facility] Comment on above: Non- GFR Calc Platelets bldOrdered By: Wes Noguera on 08-16-2023 Platelets (Bld) [#/Vol] 220 10*3/uL 150-450 [facility] Serum or plasma calcium lawrence urement (mass/volume)Ordered By: Hesham Noguera on 08-16-2023 Calcium [Mass/Vol] 8.9 mg/dL 8.5-10.1 [facility] Serum or plasma creatinine m easurement (mass/volume)Ordered By: Hesham Noguera on 08-16-2023 Creatinine [Mass/Vol] 0.51 mg/dL 0.55-1.02 [facility] Comment on above: The validity of the calculated GFR & GFRAA in patients over 70 years has not been determined. Clinical correlation is essential. Serum or plasma urea nitroge n measurement (mass/volume)Ordered By: Hesham Noguera on 08-16-2023 Urea nitrogen [Mass/Vol] 16 mg/dL 7-18 [facility] Thin prep Papanicolaou smear with manual screeningOrdered By: Hesham Noguera on 08-16-2023 Thin prep Papanicolaou smear with manual screening 9 5-15 [facility] Basophil percentageOrdered B y: Amy Moreno on 08-15-2023 Bilirubin [Mass/Vol] 0.70 mg/dL 0.20-1.00 [facility] Comment on above: For patients on eltr ombopag therapy, use of Dimension Magnet TBIL is not recommended. Protein [Mass/Vol] 7.5 g/dL 6.4-8.2 [facility] Laboratory - Chemistry and C hemistry - challengeOrdered By: Amy Moreno on 08-15-2023 ALP [Catalytic activity/Vol] 148 U/L 45-117 [facility] ALT [Catalytic activity/Vol] 75 U/L 13-56 [facility] Globulin (S) [Mass/Vol] 4.3 g/dL 2.2-4.2 [facility] Serum or plasma albumin lawrence urement (mass/volume)Ordered By: Amy Moreno on 08-15-2023 Albumin [Mass/Vol] 3.2 g/dL 3.2-5.0 [facility] Serum or plasma albumin/glob ulin mass ratioOrdered By: Amy Moreno on 11-03-2023 Albumin/Globulin [Mass ratio] 0.7 {ratio} 0.9-2.4 [facility] Thin prep Papanicolaou smear with manual screeningOrdered By: Amy Moreno on 08-15-2023 Thin prep Papanicolaou smear with manual screening 32 U/L 15-37 [facility] Absolute lymphocyte countOrd ered By: Jey Quesada on 08-14-2023 Lymphocytes Auto (Unsp spec) [#/Vol] 1.62 10*3/uL 0.83-4.51 [facility] Basophil percentageOrdered B y: Jey Quesada on 08-14-2023 Basophils/100 WBC (Bld) 0.4 % 0-1 [facility] Bilirubin [Mass/Vol] 0.70 mg/dL 0.20-1.00 [facility] Comment on above: For patients on eltr ombopag therapy, use of Dimension Magnet TBIL is not recommended. Chloride [Moles/Vol] 102 mmol/L 98-107 [facility] Eosinophils/100 WBC (Bld) 0.0 % 0-5 [facility] Glucose [Mass/Vol] 153 mg/dL 74-106 [facility] Comment on above: Fasting Glucose resu lt greater than or equal to 126 mg/dL suggests DIABETES MELLITUS per A.D.A. criteria. Neutrophils (Bld) [#/Vol] 10.5 10*3/uL 2.0-7.7 [facility] Neutrophils/100 WBC (Bld) 79.4 % 47-70 [facility] Potassium [Moles/Vol] 3.8 mmol/L 3.5-5.1 [facility] Protein [Mass/Vol] 8.0 g/dL 6.4-8.2 [facility] Sodium [Moles/Vol] 137 mmol/L 136-145 [facility] WBC (Bld) [#/Vol] 13.2 10*3/uL 4.4-11.0 [facility] Blood erythrocytes count (nu mber/volume)Ordered By: Jey Quesada on 08-14-2023 RBC (Bld) [#/Vol] 4.85 10*6/uL 4.2-5.4 [facility] Blood hemoglobin measurement (mass/volume)Ordered By: Jey Quesada on 08-14-2023 Hemoglobin (Bld) [Mass/Vol] 14.0 g/dL 12.0-15.0 [facility] Blood lymphocytes/100 leukoc ytesOrdered By: Jey Quesada on 08-14-2023 Lymphocytes/100 WBC (Bld) 12.3 % 19-41 [facility] Blood monocytes/100 leukocyt esOrdered By: Jey Quesada on 08-14-2023 Monocytes/100 WBC (Bld) 7.5 % 0-10 [facility] Blood platelet mean volumeOr dered By: Jey Quesada on 08-14-2023 Platelet mean volume (Bld) [Entitic vol] 10.7 fL 6.2-12.0 [facility] Determination of erythrocyte mean corpuscular volume (MCV)Ordered By: Jey Quesada on 08-14-2023 MCV (RBC) [Entitic vol] 90.7 fL 81-99 [facility] Hematocrit Auto (Bld) [Volum e fraction]Ordered By: Jey Quesada on 08-14-2023 Hematocrit (Bld) [Volume fraction] 44.0 % 37-47 [facility] Laboratory - Chemistry and C hemistry - challengeOrdered By: Jey Quesada on 08-14-2023 ALP [Catalytic activity/Vol] 150 U/L 45-117 [facility] ALT [Catalytic activity/Vol] 72 U/L 13-56 [facility] CO2 [Moles/Vol] 26.0 mmol/L 21.0-32.0 [facility] Globulin (S) [Mass/Vol] 4.2 g/dL 2.2-4.2 [facility] Natriuretic peptide B (Bld) [Mass/Vol] 2.9 pg/mL 0-100 [facility] Urea nitrogen/Creatinine [Mass ratio] 22.2 mg/mg 10-20 [facility] Laboratory - Hematology and Cell countsOrdered By: Jey Quesada on 08-14-2023 Erythrocyte distribution width (RBC) [Entitic vol] 44.6 fL 35.1-43.9 [facility] Erythrocyte distribution width (RBC) [Ratio] 13.4 % 11.6-14.6 [facility] Immature granulocytes/100 WBC (Bld) 0.400 % 0.0-0.9 [facility] Comment on above: IG% - Immature Granu locytes (promyelocytes, myelocytes and metamyelocytes) > 1% indicates that a LEFT SHIFT is Present. MCH (RBC) [Entitic mass] 28.9 pg 27.0-32.0 [facility] Nucleated RBC/100 WBC (Bld) [Ratio] 0 % 0-5 [facility] MCHC Auto (RBC) [Mass/Vol]Or dered By: Jey Quesada on 08-14-2023 MCHC (RBC) [Mass/Vol] 31.8 g/dL 32-36 [facility] No Panel InformationOrdered By: Jey Quesada on 08-14-2023 Estimated Creatinine Clearance Calc 67.22 ml/min [facility] Estimated GFR (MDRD) Amer 114 mL/min >60 [facility] Comment on above: GFR Calc Estimated GFR (MDRD) Non-Af Amer 94 mL/min >60 [facility] Comment on above: Non- GFR Calc Troponin I High Sensitivity < 3 pg/mL 3.0-54.0 [facility] Comment on above: Please Note: New Janeth t Units and Gender Specific Reference Ranges. For more information see Policy Stat Procedure Magnet High Sensitivity Troponin (TNIH) and attachments. Platelets bldOrdered By: Trevor Quesada on 08-14-2023 Platelets (Bld) [#/Vol] 182 10*3/uL 150-450 [facility] Respiratory pathogens DNA an d RNA panel LUIS M+probe (Resp)Ordered By: Amy Moreno on 08-14-2023 Respiratory Panel (PCR) Rhinovirus [facility] Serum or plasma albumin lawrence urement (mass/volume)Ordered By: Jey Quesada on 08-14-2023 Albumin [Mass/Vol] 3.8 g/dL 3.2-5.0 [facility] Serum or plasma albumin/glob ulin mass ratioOrdered By: Jey Quesada on 08-14-2023 Albumin/Globulin [Mass ratio] 0.9 {ratio} 0.9-2.4 [facility] Serum or plasma calcium lawrence urement (mass/volume)Ordered By: Jey Quesada on 08-14-2023 Calcium [Mass/Vol] 9.2 mg/dL 8.5-10.1 [facility] Serum or plasma creatinine m easurement (mass/volume)Ordered By: Jey Quesada on 08-14-2023 Creatinine [Mass/Vol] 0.68 mg/dL 0.55-1.02 [facility] Comment on above: The validity of the calculated GFR & GFRAA in patients over 70 years has not been determined. Clinical correlation is essential. Serum or plasma urea nitroge n measurement (mass/volume)Ordered By: Jey Quesada on 08-14-2023 Urea nitrogen [Mass/Vol] 15 mg/dL 7-18 [facility] Serum procalcitonin measurem entOrdered By: Amy Moreno on 08-14-2023 Procalcitonin [Mass/Vol] 0.12 ng/mL 0.00-0.09 [facility] Comment on above: A procalcitonin (PCT [...] smear with manual screening 50 U/L 15-37 [facility] Thin prep Papanicolaou smear with manual screening 9 5-15 [facility] Absolute lymphocyte countOrd ered By: Lorraine Springer on 07-17-2023 Lymphocytes Auto (Unsp spec) [#/Vol] 1.66 10*3/uL 0.83-4.51 [facility] Basophil percentageOrdered B y: Lorraine Springer on 07-17-2023 Basophils/100 WBC (Bld) 0.4 % 0-1 [facility] Eosinophils/100 WBC (Bld) 0.3 % 0-5 [facility] Neutrophils (Bld) [#/Vol] 5.9 10*3/uL 2.0-7.7 [facility] Neutrophils/100 WBC (Bld) 73.4 % 47-70 [facility] WBC (Bld) [#/Vol] 8.0 10*3/uL 4.4-11.0 [facility] Blood erythrocytes count (nu mber/volume)Ordered By: Lorraine Springer on 07-17-2023 RBC (Bld) [#/Vol] 4.53 10*6/uL 4.2-5.4 [facility] Blood hemoglobin measurement (mass/volume)Ordered By: Lorraine Springer on 07-17-2023 Hemoglobin (Bld) [Mass/Vol] 13.3 g/dL 12.0-15.0 [facility] Blood lymphocytes/100 leukoc ytesOrdered By: Lorraine Springer on 07-17-2023 Lymphocytes/100 WBC (Bld) 20.8 % 19-41 [facility] Blood monocytes/100 leukocyt esOrdered By: Lorraine Springer on 07-17-2023 Monocytes/100 WBC (Bld) 5.0 % 0-10 [facility] Blood platelet mean volumeOr dered By: Lorraine Springer on 07-17-2023 Platelet mean volume (Bld) [Entitic vol] 9.5 fL 6.2-12.0 [facility] Determination of erythrocyte mean corpuscular volume (MCV)Ordered By: Lorraine Springer on 07-17-2023 MCV (RBC) [Entitic vol] 92.1 fL 81-99 [facility] Hematocrit Auto (Bld) [Volum e fraction]Ordered By: Lorraine Springer on 07-17-2023 Hematocrit (Bld) [Volume fraction] 41.7 % 37-47 [facility] Laboratory - Hematology and Cell countsOrdered By: Lorraine Springer on 07-17-2023 Erythrocyte distribution width (RBC) [Entitic vol] 45.3 fL 35.1-43.9 [facility] Erythrocyte distribution width (RBC) [Ratio] 13.3 % 11.6-14.6 [facility] Immature granulocytes/100 WBC (Bld) 0.100 % 0.0-0.9 [facility] Comment on above: IG% - Immature Granu locytes (promyelocytes, myelocytes and metamyelocytes) > 1% indicates that a LEFT SHIFT is Present. MCH (RBC) [Entitic mass] 29.4 pg 27.0-32.0 [facility] Nucleated RBC/100 WBC (Bld) [Ratio] 0 % 0-5 [facility] MCHC Auto (RBC) [Mass/Vol]Or dered By: Lorraine Springer on 07-17-2023 MCHC (RBC) [Mass/Vol] 31.9 g/dL 32-36 [facility] Platelets bldOrdered By: Moon Springer on 07-17-2023 Platelets (Bld) [#/Vol] 190 10*3/uL 150-450 [facility] Absolute lymphocyte countOrd ered By: Lorraine Springer on 06-18-2023 Lymphocytes Auto (Unsp spec) [#/Vol] 1.70 10*3/uL 0.83-4.51 [facility] Basophil percentageOrdered B y: Lorraine Springer on 06-18-2023 Basophils/100 WBC (Bld) 0.4 % 0-1 [facility] Eosinophils/100 WBC (Bld) 0.4 % 0-5 [facility] Neutrophils (Bld) [#/Vol] 5.3 10*3/uL 2.0-7.7 [facility] Neutrophils/100 WBC (Bld) 71.4 % 47-70 [facility] WBC (Bld) [#/Vol] 7.4 10*3/uL 4.4-11.0 [facility] Blood erythrocytes count (nu mber/volume)Ordered By: Lorraine Springer on 06-18-2023 RBC (Bld) [#/Vol] 4.66 10*6/uL 4.2-5.4 [facility] Blood hemoglobin measurement (mass/volume)Ordered By: Lorraine Springer on 06-18-2023 Hemoglobin (Bld) [Mass/Vol] 13.9 g/dL 12.0-15.0 [facility] Blood lymphocytes/100 leukoc ytesOrdered By: Lorraine Springer on 06-18-2023 Lymphocytes/100 WBC (Bld) 23.1 % 19-41 [facility] Blood monocytes/100 leukocyt esOrdered By: Lorraine Springer on 06-18-2023 Monocytes/100 WBC (Bld) 4.4 % 0-10 [facility] Blood platelet mean volumeOr dered By: Lorraine Springer on 06-18-2023 Platelet mean volume (Bld) [Entitic vol] 11.9 fL 6.2-12.0 [facility] Determination of erythrocyte mean corpuscular volume (MCV)Ordered By: Lorraine Springer on 06-18-2023 MCV (RBC) [Entitic vol] 92.5 fL 81-99 [facility] Hematocrit Auto (Bld) [Volum e fraction]Ordered By: Lorraine Springer on 06-18-2023 Hematocrit (Bld) [Volume fraction] 43.1 % 37-47 [facility] Laboratory - Hematology and Cell countsOrdered By: Lorraine Springer on 06-18-2023 Erythrocyte distribution width (RBC) [Entitic vol] 46.5 fL 35.1-43.9 [facility] Erythrocyte distribution width (RBC) [Ratio] 13.6 % 11.6-14.6 [facility] Immature granulocytes/100 WBC (Bld) 0.300 % 0.0-0.9 [facility] Comment on above: IG% - Immature Granu locytes (promyelocytes, myelocytes and metamyelocytes) > 1% indicates that a LEFT SHIFT is Present. MCH (RBC) [Entitic mass] 29.8 pg 27.0-32.0 [facility] Nucleated RBC/100 WBC (Bld) [Ratio] 0 % 0-5 [facility] MCHC Auto (RBC) [Mass/Vol]Or dered By: Lorraine Springer on 06-18-2023 MCHC (RBC) [Mass/Vol] 32.3 g/dL 32-36 [facility] Platelets bldOrdered By: Moon Springer on 06-18-2023 Platelets (Bld) [#/Vol] 149 10*3/uL 150-450 [facility] NM CARDIAC PERF STRESS/PHARM on 05-26-2023 [facility] Absolute lymphocyte countOrd ered By: Lorraine Springer on 05-20-2023 Lymphocytes Auto (Unsp spec) [#/Vol] 2.71 10*3/uL 0.83-4.51 [facility] Basophil percentageOrdered B y: Lorraine Springer on 05-20-2023 Basophils/100 WBC (Bld) 0.4 % 0-1 [facility] Eosinophils/100 WBC (Bld) 0.3 % 0-5 [facility] Neutrophils (Bld) [#/Vol] 5.6 10*3/uL 2.0-7.7 [facility] Neutrophils/100 WBC (Bld) 60.5 % 47-70 [facility] WBC (Bld) [#/Vol] 9.2 10*3/uL 4.4-11.0 [facility] Blood erythrocytes count (nu mber/volume)Ordered By: Lorraine Springer on 05-20-2023 RBC (Bld) [#/Vol] 4.79 10*6/uL 4.2-5.4 [facility] Blood hemoglobin measurement (mass/volume)Ordered By: Lorraine Springer on 05-20-2023 Hemoglobin (Bld) [Mass/Vol] 13.9 g/dL 12.0-15.0 [facility] Blood lymphocytes/100 leukoc ytesOrdered By: Lorraine Springer on 05-20-2023 Lymphocytes/100 WBC (Bld) 29.4 % 19-41 [facility] Blood manual differential co mment interpretation (narrative result)Ordered By: Lorraine Springer on 05-20-2023 Manual differential comment Diego (Bld) [Interp] SCANNED [facility] Blood monocytes/100 leukocyt esOrdered By: Lorraine Springer on 05-20-2023 Monocytes/100 WBC (Bld) 9.0 % 0-10 [facility] Blood platelet mean volumeOr dered By: Lorraine Springer on 05-20-2023 Platelet mean volume (Bld) [Entitic vol] 9.9 fL 6.2-12.0 [facility] Determination of erythrocyte mean corpuscular volume (MCV)Ordered By: Lorraine Springer on 05-20-2023 MCV (RBC) [Entitic vol] 92.9 fL 81-99 [facility] Hematocrit Auto (Bld) [Volum e fraction]Ordered By: Lorraine Springer on 05-20-2023 Hematocrit (Bld) [Volume fraction] 44.5 % 37-47 [facility] Laboratory - Hematology and Cell countsOrdered By: Lorraine Springer on 05-20-2023 Erythrocyte distribution width (RBC) [Entitic vol] 46.7 fL 35.1-43.9 [facility] Erythrocyte distribution width (RBC) [Ratio] 13.7 % 11.6-14.6 [facility] Immature granulocytes/100 WBC (Bld) 0.400 % 0.0-0.9 [facility] Comment on above: IG% - Immature Granu locytes (promyelocytes, myelocytes and metamyelocytes) > 1% indicates that a LEFT SHIFT is Present. MCH (RBC) [Entitic mass] 29.0 pg 27.0-32.0 [facility] Nucleated RBC/100 WBC (Bld) [Ratio] 0 % 0-5 [facility] MCHC Auto (RBC) [Mass/Vol]Or dered By: Lorraine Springer on 05-20-2023 MCHC (RBC) [Mass/Vol] 31.2 g/dL 32-36 [facility] Platelets bldOrdered By: Moon Springer on 05-20-2023 Platelets (Bld) [#/Vol] 207 10*3/uL 150-450 [facility] Absolute lymphocyte countOrd ered By: Lorraine Springer on 05-05-2023 Lymphocytes Auto (Unsp spec) [#/Vol] 2.52 10*3/uL 0.83-4.51 [facility] Basophil percentageOrdered B y: Lorraine Springer on 05-05-2023 Basophils/100 WBC (Bld) 0.6 % 0-1 [facility] Eosinophils/100 WBC (Bld) 0.2 % 0-5 [facility] Neutrophils (Bld) [#/Vol] 5.3 10*3/uL 2.0-7.7 [facility] Neutrophils/100 WBC (Bld) 61.7 % 47-70 [facility] WBC (Bld) [#/Vol] 8.6 10*3/uL 4.4-11.0 [facility] Blood erythrocytes count (nu mber/volume)Ordered By: Lorraine Springer on 05-05-2023 RBC (Bld) [#/Vol] 5.01 10*6/uL 4.2-5.4 [facility] Blood hemoglobin measurement (mass/volume)Ordered By: Lorraine Springer on 05-05-2023 Hemoglobin (Bld) [Mass/Vol] 14.8 g/dL 12.0-15.0 [facility] Blood lymphocytes/100 leukoc ytesOrdered By: Lorraine Springer on 05-05-2023 Lymphocytes/100 WBC (Bld) 29.3 % 19-41 [facility] Blood monocytes/100 leukocyt esOrdered By: Lorraine Springer on 05-05-2023 Monocytes/100 WBC (Bld) 7.9 % 0-10 [facility] Blood platelet adequacy dete ction by light microscopyOrdered By: Lorraine Springer on 05-05-2023 Platelets LM Ql (Bld) ADEQUATE ADEQ [facility] Blood platelet mean volumeOr dered By: Lorraine Springer on 05-05-2023 Platelet mean volume (Bld) [Entitic vol] 10.6 fL 6.2-12.0 [facility] Determination of erythrocyte mean corpuscular volume (MCV)Ordered By: Lorraine Springer on 05-05-2023 MCV (RBC) [Entitic vol] 91.8 fL 81-99 [facility] Hematocrit Auto (Bld) [Volum e fraction]Ordered By: Lorraine Springer on 05-05-2023 Hematocrit (Bld) [Volume fraction] 46.0 % 37-47 [facility] Laboratory - Hematology and Cell countsOrdered By: Lorraine Springer on 05-05-2023 Anisocytosis Ql (Bld) RARE [facility] Erythrocyte distribution width (RBC) [Entitic vol] 45.9 fL 35.1-43.9 [facility] Erythrocyte distribution width (RBC) [Ratio] 13.7 % 11.6-14.6 [facility] Immature granulocytes/100 WBC (Bld) 0.300 % 0.0-0.9 [facility] Comment on above: IG% - Immature Granu locytes (promyelocytes, myelocytes and metamyelocytes) > 1% indicates that a LEFT SHIFT is Present. MCH (RBC) [Entitic mass] 29.5 pg 27.0-32.0 [facility] Nucleated RBC/100 WBC (Bld) [Ratio] 0 % 0-5 [facility] MCHC Auto (RBC) [Mass/Vol]Or dered By: Lorraine Springer on 05-05-2023 MCHC (RBC) [Mass/Vol] 32.2 g/dL 32-36 [facility] No Panel InformationOrdered By: Lorraine Springer on 05-05-2023 Atypical Lymphocytes 1+ % [facility] Platelets bldOrdered By: Moon Springer on 05-05-2023 Platelets (Bld) [#/Vol] 222 10*3/uL 150-450 [facility] RBC morphologyOrdered By: Anastacia Springer on 05-05-2023 RBC morphology finding Nom (Bld) N CHROM NORMAL NORM C&C [facility] Absolute lymphocyte countOrd ered By: Lorraine Springer on 03-17-2023 Lymphocytes Auto (Unsp spec) [#/Vol] 2.43 10*3/uL 0.83-4.51 [facility] Basophil percentageOrdered B y: Lorraine Springer on 03-17-2023 Basophils/100 WBC (Bld) 0.4 % 0-1 [facility] Eosinophils/100 WBC (Bld) 0.2 % 0-5 [facility] Neutrophils (Bld) [#/Vol] 7.8 10*3/uL 2.0-7.7 [facility] Neutrophils/100 WBC (Bld) 71.4 % 47-70 [facility] WBC (Bld) [#/Vol] 10.8 10*3/uL 4.4-11.0 [facility] Blood erythrocytes count (nu mber/volume)Ordered By: Lorraine Springer on 03-17-2023 RBC (Bld) [#/Vol] 4.78 10*6/uL 4.2-5.4 [facility] Blood hemoglobin measurement (mass/volume)Ordered By: Lorraine Springer on 03-17-2023 Hemoglobin (Bld) [Mass/Vol] 14.2 g/dL 12.0-15.0 [facility] Blood lymphocytes/100 leukoc ytesOrdered By: Lorraine Springer on 03-17-2023 Lymphocytes/100 WBC (Bld) 22.4 % 19-41 [facility] Blood monocytes/100 leukocyt esOrdered By: Lorraine Springer on 03-17-2023 Monocytes/100 WBC (Bld) 5.3 % 0-10 [facility] Blood platelet mean volumeOr dered By: Lorraine Springer on 03-17-2023 Platelet mean volume (Bld) [Entitic vol] 9.5 fL 6.2-12.0 [facility] Determination of erythrocyte mean corpuscular volume (MCV)Or[facility] By: [facility]23 MCV (RBC) [Entitic vol] 90.2 fL 81-99 [facility] Hematocrit Auto (Bld) [Volum e fraction]Ordered By: Lorraine Springer on 03-17-2023 Hematocrit (Bld) [Volume fraction] 43.1 % 37-47 [facility] Laboratory - Hematology and Cell countsOrdered By: [facility] on 03-17-2023 Erythrocyte distribution width (RBC) [Entitic vol] 44.8 fL 35.1-43.9 [facility] Erythrocyte distribution width (RBC) [Ratio] 13.6 % 11.6-14.6 [facility] Immature granulocytes/100 WBC (Bld) 0.300 % 0.0-0.9 [facility] Comment on above: IG% - Immature Granu locytes (promyelocytes, myelocytes and metamyelocytes) > 1% indicates that a LEFT SHIFT is Present. MCH (RBC) [Entitic mass] 29.7 pg 27.0-32.0 [facility] Nucleated RBC/100 WBC (Bld) [Ratio] 0 % 0-5 [facility] MCHC Auto (RBC) [Mass/Vol]Or dered By: Lorraine Springer on 03-17-2023 MCHC (RBC) [Mass/Vol] 32.9 g/dL 32-36 [facility] Platelets bldOrdered By: Moon Springer on 03-17-2023 Platelets (Bld) [#/Vol] 201 10*3/uL 150-450 [facility] Absolute lymphocyte countOrd ered By: Dr. Springer on 02-17-2023 Lymphocytes Auto (Unsp spec) [#/Vol] 2.63 10*3/uL 0.83-4.51 [facility] Basophil percentageOrdered B y: Dr. Springer on 02-17-2023 Basophils/100 WBC (Bld) 0.5 % 0-1 [facility] Eosinophils/100 WBC (Bld) 0.4 % 0-5 [facility] Neutrophils (Bld) [#/Vol] 6.5 10*3/uL 2.0-7.7 [facility] Neutrophils/100 WBC (Bld) 65.4 % 47-70 [facility] WBC (Bld) [#/Vol] 10.0 10*3/uL 4.4-11.0 [facility] Blood erythrocytes count (nu mber/volume)Ordered By: Dr. Springer on 02-17-2023 RBC (Bld) [#/Vol] 5.05 10*6/uL 4.2-5.4 [facility] Blood hemoglobin measurement (mass/volume)Ordered By: Dr. Springer on 02-17-2023 Hemoglobin (Bld) [Mass/Vol] 14.8 g/dL 12.0-15.0 [facility] Blood lymphocytes/100 leukoc ytesOrdered By: Dr. Springer on 02-17-2023 Lymphocytes/100 WBC (Bld) 26.4 % 19-41 [facility] Blood monocytes/100 leukocyt esOrdered By: Dr. Springer on 02-17-2023 Monocytes/100 WBC (Bld) 7.0 % 0-10 [facility] Blood platelet mean volumeOr dered By: Dr. Springer on 02-17-2023 Platelet mean volume (Bld) [Entitic vol] 10.8 fL 6.2-12.0 [facility] Determination of erythrocyte mean corpuscular volume (MCV)Ordered By: Dr. Springer on 02-17-2023 MCV (RBC) [Entitic vol] 90.7 fL 81-99 [facility] Hematocrit Auto (Bld) [Volum e fraction]Ordered By: Dr. Springer on 02-17-2023 Hematocrit (Bld) [Volume fraction] 45.8 % 37-47 [facility] Laboratory - Hematology and Cell countsOrdered By: Dr. Springer on 02-17-2023 Erythrocyte distribution width (RBC) [Entitic vol] 45.1 fL 35.1-43.9 [facility] Erythrocyte distribution width (RBC) [Ratio] 13.6 % 11.6-14.6 [facility] Immature granulocytes/100 WBC (Bld) 0.300 % 0.0-0.9 [facility] Comment on above: IG% - Immature Granu locytes (promyelocytes, myelocytes and metamyelocytes) > 1% indicates that a LEFT SHIFT is Present. MCH (RBC) [Entitic mass] 29.3 pg 27.0-32.0 [facility] Nucleated RBC/100 WBC (Bld) [Ratio] 0 % 0-5 [facility] MCHC Auto (RBC) [Mass/Vol]Or dered By: Dr. Springer on 02-17-2023 MCHC (RBC) [Mass/Vol] 32.3 g/dL 32-36 [facility] Platelets bldOrdered By: Dr. Springer on 02-17-2023 Platelets (Bld) [#/Vol] 192 10*3/uL 150-450 [facility] Absolute lymphocyte countOrd ered By: Dr. Springer on 01-15-2023 Lymphocytes Auto (Unsp spec) [#/Vol] 1.99 10*3/uL 0.83-4.51 [facility] Basophil percentageOrdered B y: Dr. Springer on 01-15-2023 Basophils/100 WBC (Bld) 0.7 % 0-1 [facility] Eosinophils/100 WBC (Bld) 0.4 % 0-5 [facility] Neutrophils (Bld) [#/Vol] 4.6 10*3/uL 2.0-7.7 [facility] Neutrophils/100 WBC (Bld) 64.5 % 47-70 [facility] WBC (Bld) [#/Vol] 7.2 10*3/uL 4.4-11.0 [facility] Blood erythrocytes count (nu mber/volume)Ordered By: Dr. Springer on 01-15-2023 RBC (Bld) [#/Vol] 5.12 10*6/uL 4.2-5.4 [facility] Blood hemoglobin measurement (mass/volume)Ordered By: Dr. Springer on 01-15-2023 Hemoglobin (Bld) [Mass/Vol] 14.9 g/dL 12.0-15.0 [facility] Blood lymphocytes/100 leukoc ytesOrdered By: Dr. Springer on 01-15-2023 Lymphocytes/100 WBC (Bld) 27.7 % 19-41 [facility] Blood monocytes/100 leukocyt esOrdered By: Dr. Springer on 01-15-2023 Monocytes/100 WBC (Bld) 6.4 % 0-10 [facility] Blood platelet mean volumeOr dered By: Dr. Springer on 01-15-2023 Platelet mean volume (Bld) [Entitic vol] 12.3 fL 6.2-12.0 [facility] Determination of erythrocyte mean corpuscular volume (MCV)Ordered By: Dr. Springer on 01-15-2023 MCV (RBC) [Entitic vol] 91.6 fL 81-99 [facility] Hematocrit Auto (Bld) [Volum e fraction]Ordered By: Dr. Springer on 01-15-2023 Hematocrit (Bld) [Volume fraction] 46.9 % 37-47 [facility] - Hematology and Cell countsOrdered By: Dr. Springer on 01-15-2023 Erythrocyte distribution width (RBC) [Entitic vol] 46.8 fL 35.1-43.9 [facility] Erythrocyte distribution width (RBC) [Ratio] 13.9 % 11.6-14.6 [facility] Immature granulocytes/100 WBC (Bld) 0.300 % 0.0-0.9 [facility] Comment on above: IG% - Immature Granu locytes (promyelocytes, myelocytes and metamyelocytes) > 1% indicates that a LEFT SHIFT is Present. MCH (RBC) [Entitic mass] 29.1 pg 27.0-32.0 [facility] Nucleated RBC/100 WBC (Bld) [Ratio] 0 % 0-5 [facility] MCHC Auto (RBC) [Mass/Vol]Or dered By: Dr. Springer on 01-15-2023 MCHC (RBC) [Mass/Vol] 31.8 g/dL 32-36 [facility] Platelets bldOrdered By: Dr. Springer on 01-15-2023 Platelets (Bld) [#/Vol] 168 10*3/uL 150-450 [facility] Absolute lymphocyte countOrd ered By: Dr. Springer on 12-16-2022 Lymphocytes Auto (Unsp spec) [#/Vol] 2.57 10*3/uL 0.83-4.51 [facility] Basophil percentageOrdered B y: Dr. Springer on 12-16-2022 Basophils/100 WBC (Bld) 0.5 % 0-1 [facility] Eosinophils/100 WBC (Bld) 0.3 % 0-5 [facility] Neutrophils (Bld) [#/Vol] 4.5 10*3/uL 2.0-7.7 [facility] Neutrophils/100 WBC (Bld) 57.5 % 47-70 [facility] WBC (Bld) [#/Vol] 7.8 10*3/uL 4.4-11.0 [facility] Blood erythrocytes count (nu mber/volume)Ordered By: Dr. Springer on 12-16-2022 RBC (Bld) [#/Vol] 4.75 10*6/uL 4.2-5.4 [facility] Blood hemoglobin measurement (mass/volume)Ordered By: Dr. Springer on 12-16-2022 Hemoglobin (Bld) [Mass/Vol] 13.9 g/dL 12.0-15.0 [facility] Blood lymphocytes/100 leukoc ytesOrdered By: Dr. Springer on 12-16-2022 Lymphocytes/100 WBC (Bld) 33.2 % 19-41 [facility] Blood monocytes/100 leukocyt esOrdered By: Dr. Springer on 12-16-2022 Monocytes/100 WBC (Bld) 8.1 % 0-10 [facility] Blood platelet mean volumeOr dered By: Dr. Springer on 12-16-2022 Platelet mean volume (Bld) [Entitic vol] 11.0 fL 6.2-12.0 [facility] Determination of erythrocyte mean corpuscular volume (MCV)Ordered By: Dr. Springer on 12-16-2022 MCV (RBC) [Entitic vol] 92.8 fL 81-99 [facility] Hematocrit Auto (Bld) [Volum e fraction]Ordered By: Dr. Springer on 12-16-2022 Hematocrit (Bld) [Volume fraction] 44.1 % 37-47 [facility] Laboratory - Hematology and Cell countsOrdered By: Dr. Springer on 12-16-2022 Erythrocyte distribution width (RBC) [Entitic vol] 47.1 fL 35.1-43.9 [facility] Erythrocyte distribution width (RBC) [Ratio] 13.9 % 11.6-14.6 [facility] Immature granulocytes/100 WBC (Bld) 0.400 % 0.0-0.9 [facility] Comment on above: IG% - Immature Granu locytes (promyelocytes, myelocytes and metamyelocytes) > 1% indicates that a LEFT SHIFT is Present. MCH (RBC) [Entitic mass] 29.3 pg 27.0-32.0 [facility] Nucleated RBC/100 WBC (Bld) [Ratio] 0 % 0-5 [facility] MCHC Auto (RBC) [Mass/Vol]Or dered By: Dr. Springer on 12-16-2022 MCHC (RBC) [Mass/Vol] 31.5 g/dL 32-36 [facility] Platelets bldOrdered By: Dr. Springer on 12-16-2022 Platelets (Bld) [#/Vol] 193 10*3/uL 150-450 [facility] Absolute lymphocyte countOrd ered By: Dr. Springer on 11-19-2022 Lymphocytes Auto (Unsp spec) [#/Vol] 2.45 10*3/uL 0.83-4.51 [facility] Basophil percentageOrdered B y: Dr. Springer on 11-19-2022 Basophils/100 WBC (Bld) 0.6 % 0-1 [facility] Eosinophils/100 WBC (Bld) 0.2 % 0-5 [facility] Neutrophils (Bld) [#/Vol] 5.0 10*3/uL 2.0-7.7 [facility] Neutrophils/100 WBC (Bld) 61.5 % 47-70 [facility] WBC (Bld) [#/Vol] 8.2 10*3/uL 4.4-11.0 [facility] Blood erythrocytes count (nu mber/volume)Ordered By: Dr. Springer on 11-19-2022 RBC (Bld) [#/Vol] 4.95 10*6/uL 4.2-5.4 [facility] Blood hemoglobin measurement (mass/volume)Ordered By: Dr. Springer on 11-19-2022 Hemoglobin (Bld) [Mass/Vol] 14.4 g/dL 12.0-15.0 [facility] Blood lymphocytes/100 leukoc ytesOrdered By: Dr. Springer on 11-19-2022 Lymphocytes/100 WBC (Bld) 30.1 % 19-41 [facility] Blood monocytes/100 leukocyt esOrdered By: Dr. Springer on 11-19-2022 Monocytes/100 WBC (Bld) 7.4 % 0-10 [facility] Blood platelet mean volumeOr dered By: Dr. Springer on 11-19-2022 Platelet mean volume (Bld) [Entitic vol] 9.8 fL 6.2-12.0 [facility] Determination of erythrocyte mean corpuscular volume (MCV)Ordered By: Dr. Springer on 11-19-2022 MCV (RBC) [Entitic vol] 91.9 fL 81-99 [facility] Hematocrit Auto (Bld) [Volum e fraction]Ordered By: Dr. Springer on 11-19-2022 Hematocrit (Bld) [Volume fraction] 45.5 % 37-47 [facility] Laboratory - Hematology and Cell countsOrdered By: Dr. Springer on 11-19-2022 Erythrocyte distribution width (RBC) [Entitic vol] 45.9 fL 35.1-43.9 [facility] Erythrocyte distribution width (RBC) [Ratio] 13.7 % 11.6-14.6 [facility] Immature granulocytes/100 WBC (Bld) 0.200 % 0.0-0.9 [facility] Comment on above: IG% - Immature Granu locytes (promyelocytes, myelocytes and metamyelocytes) > 1% indicates that a LEFT SHIFT is Present. MCH (RBC) [Entitic mass] 29.1 pg 27.0-32.0 [facility] Nucleated RBC/100 WBC (Bld) [Ratio] 0 % 0-5 [facility] MCHC Auto (RBC) [Mass/Vol]Or dered By: Dr. Springer on 11-19-2022 MCHC (RBC) [Mass/Vol] 31.6 g/dL 32-36 [facility] Platelets bldOrdered By: Dr. Springer on 11-19-2022 Platelets (Bld) [#/Vol] 198 10*3/uL 150-450 [facility] Absolute lymphocyte countOrd ered By: Dr. Springer on 10-17-2022 Lymphocytes Auto (Unsp spec) [#/Vol] 2.70 10*3/uL 0.83-4.51 [facility] Basophil percentageOrdered B y: Dr. Springer on 10-17-2022 Basophils/100 WBC (Bld) 0.7 % 0-1 [facility] Eosinophils/100 WBC (Bld) 0.2 % 0-5 [facility] Neutrophils (Bld) [#/Vol] 5.4 10*3/uL 2.0-7.7 [facility] Neutrophils/100 WBC (Bld) 60.7 % 47-70 [facility] WBC (Bld) [#/Vol] 8.8 10*3/uL 4.4-11.0 [facility] Blood erythrocytes count (nu mber/volume)Ordered By: Dr. Springer on 10-17-2022 RBC (Bld) [#/Vol] 5.13 10*6/uL 4.2-5.4 [facility] Blood hemoglobin measurement (mass/volume)Ordered By: Dr. Springer on 10-17-2022 Hemoglobin (Bld) [Mass/Vol] 14.9 g/dL 12.0-15.0 [facility] Blood lymphocytes/100 leukoc ytesOrdered By: Dr. Springer on 10-17-2022 Lymphocytes/100 WBC (Bld) 30.6 % 19-41 [facility] Blood monocytes/100 leukocyt esOrdered By: Dr. Springer on 10-17-2022 Monocytes/100 WBC (Bld) 7.5 % 0-10 [facility] Blood platelet mean volumeOr dered By: Dr. Springer on 10-17-2022 Platelet mean volume (Bld) [Entitic vol] 11.2 fL 6.2-12.0 [facility] Determination of erythrocyte mean corpuscular volume (MCV)Ordered By: Dr. Springer on 10-17-2022 MCV (RBC) [Entitic vol] 90.3 fL 81-99 [facility] Hematocrit Auto (Bld) [Volum e fraction]Ordered By: Dr. Springer on 10-17-2022 Hematocrit (Bld) [Volume fraction] 46.3 % 37-47 [facility] Laboratory - Hematology and Cell countsOrdered By: Dr. Springer on 10-17-2022 Erythrocyte distribution width (RBC) [Entitic vol] 43.7 fL 35.1-43.9 [facility] Erythrocyte distribution width (RBC) [Ratio] 13.3 % 11.6-14.6 [facility] Immature granulocytes/100 WBC (Bld) 0.300 % 0.0-0.9 [facility] Comment on above: IG% - Immature Granu locytes (promyelocytes, myelocytes and metamyelocytes) > 1% indicates that a LEFT SHIFT is Present. MCH (RBC) [Entitic mass] 29.0 pg 27.0-32.0 [facility] Nucleated RBC/100 WBC (Bld) [Ratio] 0 % 0-5 [facility] MCHC Auto (RBC) [Mass/Vol]Or dered By: Dr. Springer on 10-17-2022 MCHC (RBC) [Mass/Vol] 32.2 g/dL 32-36 [facility] Platelets bldOrdered By: Dr. Springer on 10-17-2022 Platelets (Bld) [#/Vol] 199 10*3/uL 150-450 [facility] Absolute lymphocyte countOrd ered By: Dr. Springer on 09-19-2022 Lymphocytes Auto (Unsp spec) [#/Vol] 2.26 10*3/uL 0.83-4.51 [facility] Basophil percentageOrdered B y: Dr. Springer on 09-19-2022 Basophils/100 WBC (Bld) 0.6 % 0-1 [facility] Eosinophils/100 WBC (Bld) 0.3 % 0-5 [facility] Neutrophils (Bld) [#/Vol] 3.7 10*3/uL 2.0-7.7 [facility] Neutrophils/100 WBC (Bld) 55.2 % 47-70 [facility] WBC (Bld) [#/Vol] 6.7 10*3/uL 4.4-11.0 [facility] Blood erythrocytes count (nu mber/volume)Ordered By: Dr. Springer on 09-19-2022 RBC (Bld) [#/Vol] 4.98 10*6/uL 4.2-5.4 [facility] Blood hemoglobin measurement (mass/volume)Ordered By: Dr. Springer on 09-19-2022 Hemoglobin (Bld) [Mass/Vol] 14.4 g/dL 12.0-15.0 [facility] Blood lymphocytes/100 leukoc ytesOrdered By: Dr. Springer on 09-19-2022 Lymphocytes/100 WBC (Bld) 33.9 % 19-41 [facility] Blood manual differential co mment interpretation (narrative result)Ordered By: Dr. Springer on 09-19-2022 Manual differential comment Diego (Bld) [Interp] SCANNED [facility] Blood monocytes/100 leukocyt esOrdered By: Dr. Springer on 09-19-2022 Monocytes/100 WBC (Bld) 9.7 % 0-10 [facility] Blood platelet mean volumeOr dered By: Dr. Springer on 09-19-2022 Platelet mean volume (Bld) [Entitic vol] 10.2 fL 6.2-12.0 [facility] Determination of erythrocyte mean corpuscular volume (MCV)Ordered By: Dr. Springer on 09-19-2022 MCV (RBC) [Entitic vol] 91.8 fL 81-99 [facility] Hematocrit Auto (Bld) [Volum e fraction]Ordered By: Dr. Springer on 09-19-2022 Hematocrit (Bld) [Volume fraction] 45.7 % 37-47 [facility] Laboratory - Hematology and Cell countsOrdered By: Dr. Springer on 09-19-2022 Erythrocyte distribution width (RBC) [Entitic vol] 44.5 fL 35.1-43.9 [facility] Erythrocyte distribution width (RBC) [Ratio] 13.2 % 11.6-14.6 [facility] Immature granulocytes/100 WBC (Bld) 0.300 % 0.0-0.9 [facility] Comment on above: IG% - Immature Granu locytes (promyelocytes, myelocytes and metamyelocytes) > 1% indicates that a LEFT SHIFT is Present. MCH (RBC) [Entitic mass] 28.9 pg 27.0-32.0 [facility] Nucleated RBC/100 WBC (Bld) [Ratio] 0 % 0-5 [facility] MCHC Auto (RBC) [Mass/Vol]Or dered By: Dr. Springer on 09-19-2022 MCHC (RBC) [Mass/Vol] 31.5 g/dL 32-36 [facility] No Panel InformationOrdered By: Dr. Springer on 09-19-2022 Atypical Lymphocytes 1+ % [facility] Platelets bldOrdered By: Dr. Springer on 09-19-2022 Platelets (Bld) [#/Vol] 198 10*3/uL 150-450 [facility] Absolute lymphocyte countOrd ered By: Dr. Springer on 08-15-2022 Lymphocytes Auto (Unsp spec) [#/Vol] 2.32 10*3/uL 0.83-4.51 [facility] Basophil percentageOrdered B y: Dr. Springer on 08-15-2022 Basophils/100 WBC (Bld) 0.6 % 0-1 [facility] Eosinophils/100 WBC (Bld) 0.3 % 0-5 [facility] Neutrophils (Bld) [#/Vol] 3.8 10*3/uL 2.0-7.7 [facility] Neutrophils/100 WBC (Bld) 57.5 % 47-70 [facility] WBC (Bld) [#/Vol] 6.7 10*3/uL 4.4-11.0 [facility] Blood erythrocytes count (nu mber/volume)Ordered By: Dr. Springer on 08-15-2022 RBC (Bld) [#/Vol] 4.65 10*6/uL 4.2-5.4 [facility] Blood hemoglobin measurement (mass/volume)Ordered By: Dr. Springer on 08-15-2022 Hemoglobin (Bld) [Mass/Vol] 14.2 g/dL 12.0-15.0 [facility] Blood lymphocytes/100 leukoc ytesOrdered By: Dr. Springer on 08-15-2022 Lymphocytes/100 WBC (Bld) 34.9 % 19-41 [facility] Blood monocytes/100 leukocyt esOrdered By: Dr. Springer on 08-15-2022 Monocytes/100 WBC (Bld) 6.5 % 0-10 [facility] Blood platelet mean volumeOr dered By: Dr. Springer on 08-15-2022 Platelet mean volume (Bld) [Entitic vol] 10.1 fL 6.2-12.0 [facility] Blood platelet morphology de termination (nominal result)Ordered By: Dr. Springer on 08-15-2022 Platelet morphology finding Nom (Bld) LARGE [facility] Determination of erythrocyte mean corpuscular volume (MCV)Ordered By: Dr. Springer on 08-15-2022 MCV (RBC) [Entitic vol] 92.0 fL 81-99 [facility] Hematocrit Auto (Bld) [Volum e fraction]Ordered By: Dr. Springer on 08-15-2022 Hematocrit (Bld) [Volume fraction] 42.8 % 37-47 [facility] Laboratory - Hematology and Cell countsOrdered By: Dr. Springer on 08-15-2022 Erythrocyte distribution width (RBC) [Entitic vol] 45.7 fL 35.1-43.9 [facility] Erythrocyte distribution width (RBC) [Ratio] 13.6 % 11.6-14.6 [facility] Immature granulocytes/100 WBC (Bld) 0.200 % 0.0-0.9 [facility] Comment on above: IG% - Immature Granu locytes (promyelocytes, myelocytes and metamyelocytes) > 1% indicates that a LEFT SHIFT is Present. MCH (RBC) [Entitic mass] 30.5 pg 27.0-32.0 [facility] Nucleated RBC/100 WBC (Bld) [Ratio] 0 % 0-5 [facility] MCHC Auto (RBC) [Mass/Vol]Or dered By: Dr. Springer on 08-15-2022 MCHC (RBC) [Mass/Vol] 33.2 g/dL 32-36 [facility] No Panel InformationOrdered By: Dr. Springer on 08-15-2022 Reactive Lymphocytes RARE [facility] Platelets bldOrdered By: Dr. Springer on 08-15-2022 Platelets (Bld) [#/Vol] 185 10*3/uL 150-450 [facility] Absolute lymphocyte countOrd ered By: Dr. Springer on 07-23-2022 Lymphocytes Auto (Unsp spec) [#/Vol] 2.25 10*3/uL 0.83-4.51 [facility] Basophil percentageOrdered B y: Dr. Springer on 07-23-2022 Basophils/100 WBC (Bld) 0.5 % 0-1 [facility] Eosinophils/100 WBC (Bld) 0.1 % 0-5 [facility] Neutrophils (Bld) [#/Vol] 4.6 10*3/uL 2.0-7.7 [facility] Neutrophils/100 WBC (Bld) 62.0 % 47-70 [facility] WBC (Bld) [#/Vol] 7.4 10*3/uL 4.4-11.0 [facility] Blood erythrocytes count (nu mber/volume)Ordered By: Dr. Springer on 07-23-2022 RBC (Bld) [#/Vol] 4.63 10*6/uL 4.2-5.4 [facility] Blood hemoglobin measurement (mass/volume)Ordered By: Dr. Springer on 07-23-2022 Hemoglobin (Bld) [Mass/Vol] 13.8 g/dL 12.0-15.0 [facility] Blood lymphocytes/100 leukoc ytesOrdered By: Dr. Springer on 07-23-2022 Lymphocytes/100 WBC (Bld) 30.5 % 19-41 [facility] Blood monocytes/100 leukocyt esOrdered By: Dr. Springer on 07-23-2022 Monocytes/100 WBC (Bld) 6.6 % 0-10 [facility] Blood platelet adequacy dete ction by light microscopyOrdered By: Dr. Springer on 07-23-2022 Platelets LM Ql (Bld) ADEQUATE ADEQ [facility] Blood platelet mean volumeOr dered By: Dr. Springer on 07-23-2022 Platelet mean volume (Bld) [Entitic vol] 10.0 fL 6.2-12.0 [facility] Determination of erythrocyte mean corpuscular volume (MCV)Ordered By: Dr. Springer on 07-23-2022 MCV (RBC) [Entitic vol] 92.7 fL 81-99 [facility] Hematocrit Auto (Bld) [Volum e fraction]Ordered By: Dr. Springer on 07-23-2022 Hematocrit (Bld) [Volume fraction] 42.9 % 37-47 [facility] Laboratory - Hematology and Cell countsOrdered By: Dr. Springer on 07-23-2022 Erythrocyte distribution width (RBC) [Entitic vol] 47.2 fL 35.1-43.9 [facility] Erythrocyte distribution width (RBC) [Ratio] 13.9 % 11.6-14.6 [facility] Immature granulocytes/100 WBC (Bld) 0.300 % 0.0-0.9 [facility] Comment on above: IG% - Immature Granu locytes (promyelocytes, myelocytes and metamyelocytes) > 1% indicates that a LEFT SHIFT is Present. MCH (RBC) [Entitic mass] 29.8 pg 27.0-32.0 [facility] Nucleated RBC/100 WBC (Bld) [Ratio] 0 % 0-5 [facility] MCHC Auto (RBC) [Mass/Vol]Or dered By: Dr. Springer on 07-23-2022 MCHC (RBC) [Mass/Vol] 32.2 g/dL 32-36 [facility] Platelets bldOrdered By: Dr. Springer on 07-23-2022 Platelets (Bld) [#/Vol] 210 10*3/uL 150-450 [facility] RBC morphologyOrdered By: Dr Meghan Springer on 07-23-2022 RBC morphology finding Nom (Bld) NORM C+C NORMAL NORM C&C [facility] Absolute lymphocyte counton 06-19-2022 Lymphocytes Auto (Unsp spec) [#/Vol] 2.95 10*3/uL 0.83-4.51 [facility] Work Phone: Basophil percentageon 2021 Basophils/100 WBC (Bld) 0.3 % 0-1 [facility] Work Phone: Eosinophils/100 WBC (Bld) 0.2 % 0-5 [facility] Work Phone: Neutrophils (Bld) [#/Vol] 5.4 10*3/uL 2.0-7.7 [facility] Work Phone: Neutrophils/100 WBC (Bld) 59.6 % 47-70 [facility] Work Phone: WBC (Bld) [#/Vol] 9.1 10*3/uL 4.4-11.0 [facility] Work Phone: Blood erythrocytes count (nu mber/volume)on 06-19-2022 RBC (Bld) [#/Vol] 4.69 10*6/uL 4.2-5.4 [facility] Work Phone: Blood hemoglobin measurement (mass/volume)on 06-19-2022 Hemoglobin (Bld) [Mass/Vol] 13.8 g/dL 12.0-15.0 [facility] Work Phone: Blood lymphocytes/100 leukoc yteson 06-19-2022 Lymphocytes/100 WBC (Bld) 32.5 % 19-41 [facility] Work Phone: Blood monocytes/100 leukocyt eson 06-19-2022 Monocytes/100 WBC (Bld) 7.1 % 0-10 [facility] Work Phone: Blood platelet adequacy dete ction by light microscopyon 06-19-2022 Platelets LM Ql (Bld) ADEQUATE ADEQ [facility] Work Phone: Blood platelet mean volumeon 06-19-2022 Platelet mean volume (Bld) [Entitic vol] 10.0 fL 6.2-12.0 [facility] Work Phone: Determination of erythrocyte mean corpuscular volume (MCV)on 06-19-2022 MCV (RBC) [Entitic vol] 90.0 fL 81-99 [facility] Work Phone: Hematocrit Auto (Bld) [Volum e fraction]on 06-19-2022 Hematocrit (Bld) [Volume fraction] 42.2 % 37-47 [facility] Work Phone: Laboratory - Hematology and Cell countson 06-19-2022 Erythrocyte distribution width (RBC) [Entitic vol] 45.1 fL 35.1-43.9 [facility] Work Phone: Erythrocyte distribution width (RBC) [Ratio] 13.8 % 11.6-14.6 [facility] Work Phone: Immature granulocytes/100 WBC (Bld) 0.300 % 0.0-0.9 [facility] Work Phone: Comment on above: IG% - Immature Granu locytes (promyelocytes, myelocytes and metamyelocytes) > 1% indicates that a LEFT SHIFT is Present. MCH (RBC) [Entitic mass] 29.4 pg 27.0-32.0 [facility] Work Phone: Nucleated RBC/100 WBC (Bld) [Ratio] 0 % 0-5 [facility] Work Phone: MCHC Auto (RBC) [Mass/Vol]on 06-19-2022 MCHC (RBC) [Mass/Vol] 32.7 g/dL 32-36 [facility] Work Phone: No Panel Informationon 06-19 Atypical Lymphocytes 1+ % [facility] Work Phone: Platelets bldon 06-19-2022 Platelets (Bld) [#/Vol] 209 10*3/uL 150-450 [facility] Work Phone: RBC morphologyon 06-19-2022 RBC morphology finding Nom (Bld) NORM C+C NORMAL NORM C&C [facility] Work Phone: Absolute lymphocyte counton 06-05-2022 Lymphocytes Auto (Unsp spec) [#/Vol] 2.74 10*3/uL 0.83-4.51 [facility] Work Phone: Basophil percentageon 2021 Basophils/100 WBC (Bld) 0.5 % 0-1 [facility] Work Phone: Bilirubin [Mass/Vol] 0.20 mg/dL 0.20-1.00 [facility] Work Phone: Comment on above: For patients on eltr ombopag therapy, use of Dimension Magnet TBIL is not recommended. Chloride [Moles/Vol] 106 mmol/L 98-107 [facility] Work Phone: Eosinophils/100 WBC (Bld) 0.1 % 0-5 [facility] Work Phone: Glucose [Mass/Vol] 206 mg/dL 74-106 [facility] Work Phone: Comment on above: Glucose result great er than or equal to 200 mg/dLsuggests DIABETES MELLITUS per A.D.A. criteria. Neutrophils (Bld) [#/Vol] 5.4 10*3/uL 2.0-7.7 [facility] Work Phone: Neutrophils/100 WBC (Bld) 61.0 % 47-70 [facility] Work Phone: Potassium [Moles/Vol] 4.3 mmol/L 3.5-5.1 [facility] Work Phone: Protein [Mass/Vol] 7.6 g/dL 6.4-8.2 [facility] Work Phone: Sodium [Moles/Vol] 139 mmol/L 136-145 [facility]: WBC (Bld) [#/Vol] 8.9 10*3/uL 4.4-11.0 [facility] Work Phone: Basophil percentage 0 SEEN /hpf 0-[address] [facility] Work Phone: Bilirubin Test strip Ql (U)o n 06-05-2022 Bilirubin Ql (U) Negative Negative [facility] Work Phone: Blood erythrocytes count (nu mber/volume)on 06-05-2022 RBC (Bld) [#/Vol] 4.70 10*6/uL 4.2-5.4 [facility]: Blood hemoglobin measurement (mass/volume)on 06-05-2022 Hemoglobin (Bld) [Mass/Vol] 14.1 g/dL 12.0-15.0 [facility] Work Phone: Blood lymphocytes/100 leukoc yteson 06-05-2022 Lymphocytes/100 WBC (Bld) 30.9 % 19-41 [facility] Work Phone: Blood monocytes/100 leukocyt eson 06-05-2022 Monocytes/100 WBC (Bld) 7.0 % 0-10 [facility] Work Phone: Blood platelet mean volumeon 06-05-2022 Platelet mean volume (Bld) [Entitic vol] 9.7 fL 6.2-12.0 [facility] Work Phone: Determination of erythrocyte mean corpuscular volume (MCV)on 06-05-2022 MCV (RBC) [Entitic vol] 89.6 fL 81-99 [facility] Work Phone: Hematocrit Auto (Bld) [Volum e fraction]on 06-05-2022 Hematocrit (Bld) [Volume fraction] 42.1 % 37-47 [facility] Work Phone: [phone] Ketones Test strip Ql (U)on 06-05-2022 Ketones Ql (U) Negative Negative [facility] Work Phone: Laboratory - Chemistry and C hemistry - challengeon 06-05-2022 ALP [Catalytic activity/Vol] 162 U/L 45-117 [facility] Work Phone: ALT [Catalytic activity/Vol] 68 U/L 13-56 [facility] Work Phone: CO2 [Moles/Vol] 25.0 mmol/L 21.0-32.0 [facility] Work Phone: Globulin (S) [Mass/Vol] 3.9 g/dL 2.2-4.2 [facility] Work Phone: Urea nitrogen/Creatinine [Mass ratio] 22.3 mg/mg 10-20 [facility] Work Phone: Laboratory - Drug toxicology on 06-05-2022 Amphetamines Ql (U) Negative <1000 ng/mL [facility] Work Phone: Benzodiazepines Ql (U) Negative < 200 ng/mL [facility] Work Phone: Cannabinoids Screen Ql (U) Negative < 50 ng/mL [facility] Work Phone: Cocaine Ql (U) Negative < 300 ng/mL [facility] Work Phone: Opiates Ql (U) Negative < 300 ng/mL [facility] Work Phone: Laboratory - Hematology and Cell countson 06-05-2022 Erythrocyte distribution width (RBC) [Entitic vol] 46.8 fL 35.1-43.9 [facility] Work Phone: Erythrocyte distribution width (RBC) [Ratio] 14.2 % 11.6-14.6 [facility] Work Phone: Immature granulocytes/100 WBC (Bld) 0.500 % 0.0-0.9 [facility] Work Phone: Comment on above: IG% - Immature Granu locytes (promyelocytes, myelocytes and metamyelocytes) > 1% indicates that a LEFT SHIFT is Present. MCH (RBC) [Entitic mass] 30.0 pg 27.0-32.0 [facility] Work Phone: Nucleated RBC/100 WBC (Bld) [Ratio] 0 % 0-5 [facility] Work Phone: MCHC Auto (RBC) [Mass/Vol]on 06-05-2022 MCHC (RBC) [Mass/Vol] 33.5 g/dL 32-36 [facility] Work Phone: Mucus LM Ql (Urine sed)on Mucus Ql (Urine sed) 0 SEEN /hpf [facility] Work Phone: Nitrite Test strip Ql (U)on 06-05-2022 Nitrite Ql (U) Negative Negative [facility] Work Phone: No Panel Informationon 06-05 Estimated Creatinine Clearance Calc 64.27 ml/min [facility] Work Phone: Estimated GFR (MDRD) Amer 107 mL/min >60 [facility] Work Phone: Comment on above: GFR Calc Estimated GFR (MDRD) Non-Af Amer 89 mL/min >60 [facility] Work Phone: Comment on above: Non- GFR Calc Ethyl Alcohol Level < 3.0 mg/dL [facility] Work Phone: Comment on above: The serum:whole bloo d ethanol ratio is approximately 1.14and varies slightly with hematocrit. Medical Alcohol reference interval and critical value innon-tolerant individuals; 50 - 100 Impairment 100 Intoxication 100 - 250 Severe Poisoning 250 - 400 Deep/possible fatal coma Troponin I High Sensitivity < 3 pg/mL 3.0-54.0 [facility] Work Phone: Comment on above: Please Note: New Janeth t Units and Gender Specific Reference Ranges. For more information see Policy Stat Procedure Magnet High Sensitivity Troponin (TNIH) and attachments. MDMA (Ecstasy) Screen Negative < 500 ng/mL [facility] Work Phone: Urine Barbiturates Screen Negative < 200 ng/mL [facility] Work Phone: Urine Drug Screen Comment [facility] Work Phone: Comment on above: CONFIRMATORY [...] Methadone Screen Negative < 300 ng/mL [facility] Work Phone: Platelets bldon 06-05-2022 Platelets (Bld) [#/Vol] 220 10*3/uL 150-450 [facility] Work Phone: Protein Test strip Ql (U)on 06-05-2022 Protein Ql (U) Negative Negative [facility] Work Phone: Serum or plasma albumin lawrence urement (mass/volume)on 06-05-2022 Albumin [Mass/Vol] 3.7 g/dL 3.2-5.0 [facility] Work Phone: Serum or plasma albumin/glob ulin mass ratioon 06-05-2022 Albumin/Globulin [Mass ratio] 0.9 {ratio} 0.9-2.4 [facility] Work Phone: Serum or plasma calcium lawrence urement (mass/volume)on 06-05-2022 Calcium [Mass/Vol] 9.2 mg/dL 8.5-10.1 [facility] Work Phone: Serum or plasma creatinine m easurement (mass/volume)on 06-05-2022 Creatinine [Mass/Vol] 0.72 mg/dL 0.55-1.02 [facility] Work Phone: Comment on above: The validity of the calculated GFR & GFRAA in patients over 70 years has not been determined. Clinical correlation is essential. Serum or plasma urea nitroge n measurement (mass/volume)on 06-05-2022 Urea nitrogen [Mass/Vol] 16 mg/dL 7-18 [facility] Work Phone: Squamous epithelial cells de tection in urine sediment by light microscopyon 06-05-2022 Epithelial cells.squamous LM Ql (Urine sed) 0 SEEN /hpf 5-10 [facility] Work Phone: Thin prep Papanicolaou smear with manual screeningon 06-05-2022 Thin prep Papanicolaou smear with manual screening 52 U/L 15-37 [facility] Work Phone: Thin prep Papanicolaou smear with manual screening 8 5-15 [facility] Work Phone: Urine blood detectionon 05-14 RBC Ql (U) Negative Negative [facility] Work Phone: RBC Ql (U) 0 SEEN /hpf 0-5 [facility] Work Phone: Urine clarityon 06-05-2022 Clarity (U) Clear Clear [facility] Work Phone: Urine color determinationon 06-05-2022 Color (U) Straw Yellow [facility] Work Phone: Urine glucose detectionon Glucose Ql (U) 1000 mg/dl Normal [facility] Work Phone: Urine leukocyte esterase det ection by dipstickon 06-05-2022 Leukocyte esterase Test strip Ql (U) Negative Negative [facility] Work Phone: Urine pHon 06-05-2022 pH (U) 6.0 [pH] 5.0 - 8.0 [facility] Work Phone: Urine phencyclidine (PCP) de tectionon 06-05-2022 Phencyclidine Ql (U) Negative < 25 ng/mL [facility] Work Phone: Urine sediment bacteria coun t by microscopy (number/high power field)on 06-05-2022 Bacteria LM.HPF (Urine sed) [#/Area] 0 /[HPF] None Seen [facility] Work Phone: Urine specific gravity measu rementon 06-05-2022 Specific gravity (U) [Rel density] 1.010 1.002-1.030 [facility] Work Phone: Urobilinogen Auto test strip Ql (U)on 06-05-2022 Urobilinogen Ql (U) Normal mg/dl Normal [facility] Work Phone: Absolute lymphocyte counton 05-17-2022 Lymphocytes Auto (Unsp spec) [#/Vol] 2.96 10*3/uL 0.83-4.51 [facility] Work Phone: Basophil percentageon 2021 Basophils/100 WBC (Bld) 0.5 % 0-1 [facility] Work Phone: Eosinophils/100 WBC (Bld) 0.0 % 0-5 [facility] Work Phone: Neutrophils (Bld) [#/Vol] 5.6 10*3/uL 2.0-7.7 [facility] Work Phone: Neutrophils/100 WBC (Bld) 59.7 % 47-70 [facility] Work Phone: WBC (Bld) [#/Vol] 9.4 10*3/uL 4.4-11.0 [facility] Work Phone: [phone] Blood erythrocytes count (nu mber/volume)on 05-17-2022 RBC (Bld) [#/Vol] 4.82 10*6/uL 4.2-5.4 [facility] Work Phone: Blood hemoglobin measurement (mass/volume)on 05-17-2022 Hemoglobin (Bld) [Mass/Vol] 14.1 g/dL 12.0-15.0 [facility] Work Phone: Blood lymphocytes/100 leukoc yteson 05-17-2022 Lymphocytes/100 WBC (Bld) 31.5 % 19-41 [facility] Work Phone: Blood monocytes/100 leukocyt eson 05-17-2022 Monocytes/100 WBC (Bld) 7.8 % 0-10 [facility] Work Phone: Blood platelet mean volumeon 05-17-2022 Platelet mean volume (Bld) [Entitic vol] 10.6 fL 6.2-12.0 [facility] Work Phone: Determination of erythrocyte mean corpuscular volume (MCV)on 05-17-2022 MCV (RBC) [Entitic vol] 90.7 fL 81-99 [facility] Work Phone: Hematocrit Auto (Bld) [Volum e fraction]on 05-17-2022 Hematocrit (Bld) [Volume fraction] 43.7 % 37-47 [facility] Work Phone: Laboratory - Hematology and Cell countson 05-17-2022 Erythrocyte distribution width (RBC) [Entitic vol] 45.5 fL 35.1-43.9 [facility] Work Phone: Erythrocyte distribution width (RBC) [Ratio] 13.9 % 11.6-14.6 [facility] Work Phone: Immature granulocytes/100 WBC (Bld) 0.500 % 0.0-0.9 [facility] Work Phone: Comment on above: IG% - Immature Granu locytes (promyelocytes, myelocytes and metamyelocytes) > 1% indicates that a LEFT SHIFT is Present. MCH (RBC) [Entitic mass] 29.3 pg 27.0-32.0 [facility] Work Phone: Nucleated RBC/100 WBC (Bld) [Ratio] 0 % 0-5 [facility] Work Phone: MCHC Auto (RBC) [Mass/Vol]on 05-17-2022 MCHC (RBC) [Mass/Vol] 32.3 g/dL 32-36 [facility] Work Phone: No Panel Informationon 05-17 Reactive Lymphocytes RARE [facility] Work Phone: Platelets bldon 05-17-2022 Platelets (Bld) [#/Vol] 189 10*3/uL 150-450 [facility] Work Phone: Absolute lymphocyte counton 04-17-2022 Lymphocytes Auto (Unsp spec) [#/Vol] 2.37 10*3/uL 0.83-4.51 [facility] Work Phone: Basophil percentageon 2021 Basophils/100 WBC (Bld) 0.3 % 0-1 [facility] Work Phone: Eosinophils/100 WBC (Bld) 0.0 % 0-5 [facility] Work Phone: Neutrophils (Bld) [#/Vol] 7.5 10*3/uL 2.0-7.7 [facility] Work Phone: Neutrophils/100 WBC (Bld) 71.4 % 47-70 [facility] Work Phone: WBC (Bld) [#/Vol] 10.5 10*3/uL 4.4-11.0 [facility] Work Phone: Blood erythrocytes count (nu mber/volume)on 04-17-2022 RBC (Bld) [#/Vol] 5.00 10*6/uL 4.2-5.4 [facility] Work Phone: Blood hemoglobin measurement (mass/volume)on 04-17-2022 Hemoglobin (Bld) [Mass/Vol] 14.5 g/dL 12.0-15.0 [facility] Work Phone: Blood lymphocytes/100 leukoc yteson 04-17-2022 Lymphocytes/100 WBC (Bld) 22.6 % 19-41 [facility] Work Phone: Blood monocytes/100 leukocyt eson 04-17-2022 Monocytes/100 WBC (Bld) 5.3 % 0-10 [facility] Work Phone: Blood platelet mean volumeon 04-17-2022 Platelet mean volume (Bld) [Entitic vol] 11.6 fL 6.2-12.0 [facility] Work Phone: Determination of erythrocyte mean corpuscular volume (MCV)on 04-17-2022 MCV (RBC) [Entitic vol] 88.4 fL 81-99 [facility] Work Phone: Hematocrit Auto (Bld) [Volum e fraction]on 04-17-2022 Hematocrit (Bld) [Volume fraction] 44.2 % 37-47 [facility] Work Phone: Laboratory - Hematology and Cell countson 04-17-2022 Erythrocyte distribution width (RBC) [Entitic vol] 43.8 fL 35.1-43.9 [facility] Work Phone: Erythrocyte distribution width (RBC) [Ratio] 13.5 % 11.6-14.6 [facility] Work Phone: Immature granulocytes/100 WBC (Bld) 0.400 % 0.0-0.9 [facility] Work Phone: Comment on above: IG% - Immature Granu locytes (promyelocytes, myelocytes and metamyelocytes) > 1% indicates that a LEFT SHIFT is Present. MCH (RBC) [Entitic mass] 29.0 pg 27.0-32.0 [facility] Work Phone: Nucleated RBC/100 WBC (Bld) [Ratio] 0 % 0-5 [facility] Work Phone: MCHC Auto (RBC) [Mass/Vol]on 04-17-2022 MCHC (RBC) [Mass/Vol] 32.8 g/dL 32-36 [facility] Work Phone: Platelets bldon 04-17-2022 Platelets (Bld) [#/Vol] 166 10*3/uL 150-450 [facility] Work Phone: Glucose Glucometer (BldC) [M ass/Vol]on 04-10-2022 Glucose [Mass/Vol] 152 mg/dL 74-106 [facility] Work Phone: Comment on above: MANAGEMENT OF PATIEN T CARE PER NURSING PROTOCOL Absolute lymphocyte counton 04-09-2022 Lymphocytes Auto (Unsp spec) [#/Vol] 2.51 10*3/uL 0.83-4.51 [facility] Work Phone: Basophil percentageon 2021 Basophils/100 WBC (Bld) 0.5 % 0-1 [facility] Work Phone: Chloride [Moles/Vol] 105 mmol/L 98-107 [facility] Work Phone: Eosinophils/100 WBC (Bld) 0.1 % 0-5 [facility] Work Phone: Glucose [Mass/Vol] 151 mg/dL 74-106 [facility] Work Phone: Comment on above: Slight Lipemia, Resu lt may be falsely increased.Fasting Glucose result greater than or equal to 126 mg/dL suggests DIABETES MELLITUS per A.D.A. criteria. Neutrophils (Bld) [#/Vol] 6.1 10*3/uL 2.0-7.7 [facility] Work Phone: Neutrophils/100 WBC (Bld) 65.3 % 47-70 [facility] Work Phone: Potassium [Moles/Vol] 3.9 mmol/L 3.5-5.1 [facility] Work Phone: Comment on above: Slight Lipemia, Resu lt may be falsely increased. Sodium [Moles/Vol] 138 mmol/L 136-145 [facility] Work Phone: [phone] WBC (Bld) [#/Vol] 9.3 10*3/uL 4.4-11.0 [facility] Work Phone: Blood erythrocytes count (nu mber/volume)on 04-09-2022 RBC (Bld) [#/Vol] 4.91 10*6/uL 4.2-5.4 [facility] Work Phone: Blood hemoglobin measurement (mass/volume)on 04-09-2022 Hemoglobin (Bld) [Mass/Vol] 14.3 g/dL 12.0-15.0 [facility] Work Phone: Blood lymphocytes/100 leukoc yteson 04-09-2022 Lymphocytes/100 WBC (Bld) 27.0 % 19-41 [facility] Work Phone: Blood manual differential co mment interpretation (narrative result)on 04-09-2022 Manual differential comment Diego (Bld) [Interp] SCANNED [facility] Work Phone: Comment on above: AUTO DIFF OK Blood monocytes/100 leukocyt eson 04-09-2022 Monocytes/100 WBC (Bld) 6.9 % 0-10 [facility] Work Phone: Blood platelet mean volumeon 04-09-2022 Platelet mean volume (Bld) [Entitic vol] 10.2 fL 6.2-12.0 [facility] Work Phone: Determination of erythrocyte mean corpuscular volume (MCV)on 04-09-2022 MCV (RBC) [Entitic vol] 88.4 fL 81-99 [facility] Work Phone: Hematocrit Auto (Bld) [Volum e fraction]on 04-09-2022 Hematocrit (Bld) [Volume fraction] 43.4 % 37-47 [facility] Work Phone: Laboratory - Chemistry and C hemistry - challengeon 04-09-2022 CO2 [Moles/Vol] 25.0 mmol/L 21.0-32.0 [facility] Work Phone: Comment on above: Slight Lipemia, Resu lt may be falsely increased. Urea nitrogen/Creatinine [Mass ratio] 24.0 mg/mg 10-20 [facility] Work Phone: Laboratory - Drug toxicology on 04-09-2022 Amphetamines Ql (U) Negative <1000 ng/mL [facility] Work Phone: Benzodiazepines Ql (U) Negative < 200 ng/mL [facility] Work Phone: Cannabinoids Screen Ql (U) Negative < 50 ng/mL [facility] Work Phone: Cocaine Ql (U) Negative < 300 ng/mL [facility] Work Phone: Opiates Ql (U) Negative < 300 ng/mL [facility] Work Phone: Laboratory - Hematology and Cell countson 04-09-2022 Erythrocyte distribution width (RBC) [Entitic vol] 45.0 fL 35.1-43.9 [facility] Work Phone: Erythrocyte distribution width (RBC) [Ratio] 14.0 % 11.6-14.6 [facility] Work Phone: Immature granulocytes/100 WBC (Bld) 0.200 % 0.0-0.9 [facility] Work Phone: Comment on above: IG% - Immature Granu locytes (promyelocytes, myelocytes and metamyelocytes) > 1% indicates that a LEFT SHIFT is Present. MCH (RBC) [Entitic mass] 29.1 pg 27.0-32.0 [facility] Work Phone: Nucleated RBC/100 WBC (Bld) [Ratio] 0 % 0-5 [facility] Work Phone: MCHC Auto (RBC) [Mass/Vol]on 04-09-2022 MCHC (RBC) [Mass/Vol] 32.9 g/dL 32-36 [facility] Work Phone: No Panel Informationon 04-09 Estimated Creatinine Clearance Calc 58.57 ml/min [facility] Work Phone: Estimated GFR (MDRD) Amer 96 mL/min >60 [facility] Work Phone: Comment on above: GFR Calc Estimated GFR (MDRD) Non-Af Amer 79 mL/min >60 [facility] Work Phone: Comment on above: Non- GFR Calc Ethyl Alcohol Level 9.0 mg/dL [facility] Work Phone: Comment on above: The serum:whole bloo d ethanol ratio is approximately 1.14and varies slightly with hematocrit. Medical Alcohol reference interval and critical value innon-tolerant individuals; 50 - 100 Impairment 100 Intoxication 100 - 250 Severe Poisoning 250 - 400 Deep/possible fatal coma MDMA (Ecstasy) Screen Negative < 500 ng/mL [facility] Work Phone: Urine Barbiturates Screen Negative < 200 ng/mL [facility] Work Phone: Urine Drug Screen Comment [facility] Work Phone: Comment on above: CONFIRMATORY [...] Urine Methadone Screen Negative < 300 ng/mL [facility] Work Phone: Platelets bldon 04-09-2022 Platelets (Bld) [#/Vol] 197 10*3/uL 150-450 [facility] Work Phone: Serum or plasma calcium lawrence urement (mass/volume)on 04-09-2022 Calcium [Mass/Vol] 9.2 mg/dL 8.5-10.1 [facility] Work Phone: Comment on above: Slight Lipemia, Resu lt may be falsely increased. Serum or plasma creatinine m easurement (mass/volume)on 04-09-2022 Creatinine [Mass/Vol] 0.79 mg/dL 0.55-1.02 [facility] Work Phone: Comment on above: Slight Lipemia, Resu lt may be falsely increased.The validity of the calculated GFR & GFRAA in patients over 70 years has not been determined. Clinical correlation is essential. Serum or plasma urea nitroge n measurement (mass/volume)on 04-09-2022 Urea nitrogen [Mass/Vol] 19 mg/dL 7-18 [facility] Work Phone: Comment on above: Slight Lipemia, Resu lt may be falsely increased. Thin prep Papanicolaou smear with manual screeningon 04-09-2022 Thin prep Papanicolaou smear with manual screening 8 5-15 [facility] Work Phone: Urine phencyclidine (PCP) de tectionon 04-09-2022 Phencyclidine Ql (U) Negative < 25 ng/mL [facility] Work Phone: Absolute lymphocyte counton 03-20-2022 Lymphocytes Auto (Unsp spec) [#/Vol] 2.53 10*3/uL 0.83-4.51 [facility] Work Phone: Basophil percentageon 2021 Basophils/100 WBC (Bld) 0.2 % 0-1 [facility] Work Phone: Eosinophils/100 WBC (Bld) 0.1 % 0-5 [facility] Work Phone: [phone] Neutrophils (Bld) [#/Vol] 5.7 10*3/uL 2.0-7.7 [facility] Work Phone: [phone] Neutrophils/100 WBC (Bld) 64.2 % 47-70 [facility] Work Phone: WBC (Bld) [#/Vol] 8.9 10*3/uL 4.4-11.0 [facility] Work Phone: [phone] Blood erythrocytes count (nu mber/volume)on 03-20-2022 RBC (Bld) [#/Vol] 4.80 10*6/uL 4.2-5.4 [facility] Work Phone: Blood hemoglobin measurement (mass/volume)on 03-20-2022 Hemoglobin (Bld) [Mass/Vol] 13.9 g/dL 12.0-15.0 [facility] Work Phone: Blood lymphocytes/100 leukoc yteson 03-20-2022 Lymphocytes/100 WBC (Bld) 28.3 % 19-41 [facility] Work Phone: Blood monocytes/100 leukocyt eson 03-20-2022 Monocytes/100 WBC (Bld) 7.0 % 0-10 [facility] Work Phone: Blood platelet adequacy dete ction by light microscopyon 03-20-2022 Platelets LM Ql (Bld) ADEQUATE ADEQ [facility] Work Phone: Blood platelet mean volumeon 03-20-2022 Platelet mean volume (Bld) [Entitic vol] 11.1 fL 6.2-12.0 [facility] Work Phone: Determination of erythrocyte mean corpuscular volume (MCV)on 03-20-2022 MCV (RBC) [Entitic vol] 89.8 fL 81-99 [facility] Work Phone: Hematocrit Auto (Bld) [Volum e fraction]on 03-20-2022 Hematocrit (Bld) [Volume fraction] 43.1 % 37-47 [facility] Work Phone: Laboratory - Hematology and Cell countson 03-20-2022 Erythrocyte distribution width (RBC) [Entitic vol] 44.5 fL 35.1-43.9 [facility] Work Phone: Erythrocyte distribution width (RBC) [Ratio] 13.7 % 11.6-14.6 [facility] Work Phone: Immature granulocytes/100 WBC (Bld) 0.200 % 0.0-0.9 [facility] Work Phone: Comment on above: IG% - Immature Granu locytes (promyelocytes, myelocytes and metamyelocytes) > 1% indicates that a LEFT SHIFT is Present. MCH (RBC) [Entitic mass] 29.0 pg 27.0-32.0 [facility] Work Phone: Nucleated RBC/100 WBC (Bld) [Ratio] 0 % 0-5 [facility] Work Phone: MCHC Auto (RBC) [Mass/Vol]on 03-20-2022 MCHC (RBC) [Mass/Vol] 32.3 g/dL 32-36 [facility] Work Phone: Platelets bldon 03-20-2022 Platelets (Bld) [#/Vol] 191 10*3/uL 150-450 [facility] Work Phone: RBC morphologyon 03-20-2022 RBC morphology finding Nom (Bld) NORM C+C NORMAL NORM C&C [facility] Work Phone: Absolute lymphocyte counton 02-13-2022 Lymphocytes Auto (Unsp spec) [#/Vol] 1.99 10*3/uL 0.83-4.51 [facility] Work Phone: Basophil percentageon 2021 Basophils/100 WBC (Bld) 0.5 % 0-1 [facility] Work Phone: Eosinophils/100 WBC (Bld) 0.1 % 0-5 [facility] Work Phone: Neutrophils (Bld) [#/Vol] 5.1 10*3/uL 2.0-7.7 [facility] Work Phone: Neutrophils/100 WBC (Bld) 66.1 % 47-70 [facility] Work Phone: WBC (Bld) [#/Vol] 7.7 10*3/uL 4.4-11.0 [facility] Work Phone: Blood erythrocytes count (nu mber/volume)on 02-13-2022 RBC (Bld) [#/Vol] 4.99 10*6/uL 4.2-5.4 [facility] Work Phone: Blood hemoglobin measurement (mass/volume)on 02-13-2022 Hemoglobin (Bld) [Mass/Vol] 14.4 g/dL 12.0-15.0 [facility] Work Phone: Blood lymphocytes/100 leukoc yteson 02-13-2022 Lymphocytes/100 WBC (Bld) 25.7 % 19-41 [facility] Work Phone: Blood monocytes/100 leukocyt eson 02-13-2022 Monocytes/100 WBC (Bld) 7.1 % 0-10 [facility] Work Phone: Blood platelet mean volumeon 02-13-2022 Platelet mean volume (Bld) [Entitic vol] 10.2 fL 6.2-12.0 [facility] Work Phone: Determination of erythrocyte mean corpuscular volume (MCV)on 02-13-2022 MCV (RBC) [Entitic vol] 90.6 fL 81-99 [facility] Work Phone: Hematocrit Auto (Bld) [Volum e fraction]on 02-13-2022 Hematocrit (Bld) [Volume fraction] 45.2 % 37-47 [facility] Work Phone: Laboratory - Hematology and Cell countson 02-13-2022 Erythrocyte distribution width (RBC) [Entitic vol] 45.9 fL 35.1-43.9 [facility] Work Phone: Erythrocyte distribution width (RBC) [Ratio] 13.9 % 11.6-14.6 [facility] Work Phone: Immature granulocytes/100 WBC (Bld) 0.500 % 0.0-0.9 [facility] Work Phone: Comment on above: IG% - Immature Granu locytes (promyelocytes, myelocytes and metamyelocytes) > 1% indicates that a LEFT SHIFT is Present. MCH (RBC) [Entitic mass] 28.9 pg 27.0-32.0 [facility] Work Phone: Nucleated RBC/100 WBC (Bld) [Ratio] 0 % 0-5 [facility] Work Phone: MCHC Auto (RBC) [Mass/Vol]on 02-13-2022 MCHC (RBC) [Mass/Vol] 31.9 g/dL 32-36 [facility] Work Phone: Platelets bldon 02-13-2022 Platelets (Bld) [#/Vol] 231 10*3/uL 150-450 [facility] Work Phone: Absolute lymphocyte counton 01-14-2022 Lymphocytes Auto (Unsp spec) [#/Vol] 3.17 10*3/uL 0.83-4.51 [facility] Work Phone: Basophil percentageon 2021 Basophils/100 WBC (Bld) 0.6 % 0-1 [facility] Work Phone: Eosinophils/100 WBC (Bld) 0.2 % 0-5 [facility] Work Phone: Neutrophils (Bld) [#/Vol] 6.3 10*3/uL 2.0-7.7 [facility] Work Phone: Neutrophils/100 WBC (Bld) 61.6 % 47-70 [facility] Work Phone: WBC (Bld) [#/Vol] 10.3 10*3/uL 4.4-11.0 [facility] Work Phone: Blood erythrocytes count (nu mber/volume)on 01-14-2022 RBC (Bld) [#/Vol] 5.25 10*6/uL 4.2-5.4 [facility] Work Phone: Blood hemoglobin measurement (mass/volume)on 01-14-2022 Hemoglobin (Bld) [Mass/Vol] 15.0 g/dL 12.0-15.0 [facility] Work Phone: Blood lymphocytes/100 leukoc yteson 01-14-2022 Lymphocytes/100 WBC (Bld) 30.9 % 19-41 [facility] Work Phone: Blood monocytes/100 leukocyt eson 01-14-2022 Monocytes/100 WBC (Bld) 6.3 % 0-10 [facility] Work Phone: Blood platelet mean volumeon 01-14-2022 Platelet mean volume (Bld) [Entitic vol] 10.7 fL 6.2-12.0 [facility] Work Phone: Determination of erythrocyte mean corpuscular volume (MCV)on 01-14-2022 MCV (RBC) [Entitic vol] 89.1 fL 81-99 [facility] Work Phone: Hematocrit Auto (Bld) [Volum e fraction]on 01-14-2022 Hematocrit (Bld) [Volume fraction] 46.8 % 37-47 [facility] Work Phone: Laboratory - Hematology and Cell countson 01-14-2022 Erythrocyte distribution width (RBC) [Entitic vol] 44.2 fL 35.1-43.9 [facility] Work Phone: Erythrocyte distribution width (RBC) [Ratio] 13.5 % 11.6-14.6 [facility] Work Phone: Immature granulocytes/100 WBC (Bld) 0.400 % 0.0-0.9 [facility] Work Phone: Comment on above: IG% - Immature Granu locytes (promyelocytes, myelocytes and metamyelocytes) > 1% indicates that a LEFT SHIFT is Present. MCH (RBC) [Entitic mass] 28.6 pg 27.0-32.0 [facility] Work Phone: Nucleated RBC/100 WBC (Bld) [Ratio] 0 % 0-5 [facility] Work Phone: MCHC Auto (RBC) [Mass/Vol]on 01-14-2022 MCHC (RBC) [Mass/Vol] 32.1 g/dL 32-36 [facility] Work Phone: No Panel Informationon 01-14 Reactive Lymphocytes RARE [facility] Work Phone: Platelets bldon 01-14-2022 Platelets (Bld) [#/Vol] 224 10*3/uL 150-450 [facility] Work Phone: Absolute lymphocyte counton 12-13-2021 Lymphocytes Auto (Unsp spec) [#/Vol] 2.05 10*3/uL 0.83-4.51 [facility] Work Phone: Basophil percentageon 2021 Basophils/100 WBC (Bld) 0.5 % 0-1 [facility] [facility] Work Phone: Eosinophils/100 WBC (Bld) 0.1 % 0-5 [facility] Work Phone: Neutrophils (Bld) [#/Vol] 4.8 10*3/uL 2.0-7.7 [facility] Work Phone: Neutrophils/100 WBC (Bld) 64.5 % 47-70 [facility] Work Phone: WBC (Bld) [#/Vol] 7.4 10*3/uL 4.4-11.0 [facility] Work Phone: [phone] Blood erythrocytes count (nu mber/volume)on 12-13-2021 RBC (Bld) [#/Vol] 4.90 10*6/uL 4.2-5.4 [facility]: [phone] Blood hemoglobin measurement (mass/volume)on 12-13-2021 Hemoglobin (Bld) [Mass/Vol] 14.6 g/dL 12.0-15.0 [facility] Work Phone: Blood lymphocytes/100 leukoc yteson 12-13-2021 Lymphocytes/100 WBC (Bld) 27.6 % 19-41 [facility] Work Phone: Blood monocytes/100 leukocyt eson 12-13-2021 Monocytes/100 WBC (Bld) 6.9 % 0-10 [facility] Work Phone: Blood platelet mean volumeon 12-13-2021 Platelet mean volume (Bld) [Entitic vol] 12.2 fL 6.2-12.0 [facility] Work Phone: [phone] Determination of erythrocyte mean corpuscular volume (MCV)on 12-13-2021 MCV (RBC) [Entitic vol] 91.0 fL 81-99 [facility] Work Phone: Hematocrit Auto (Bld) [Volum e fraction]on 12-13-2021 Hematocrit (Bld) [Volume fraction] 44.6 % 37-47 [facility] Work Phone: Laboratory - Hematology and Cell countson 12-13-2021 Erythrocyte distribution width (RBC) [Entitic vol] 45.6 fL 35.1-43.9 [facility] Work Phone: Erythrocyte distribution width (RBC) [Ratio] 13.6 % 11.6-14.6 [facility] Work Phone: Immature granulocytes/100 WBC (Bld) 0.400 % 0.0-0.9 [facility] Work Phone: [phone] Comment on above: IG% - Immature Granu locytes (promyelocytes, myelocytes and metamyelocytes) > 1% indicates that a LEFT SHIFT is Present. MCH (RBC) [Entitic mass] 29.8 pg 27.0-32.0 [facility] Work Phone: Nucleated RBC/100 WBC (Bld) [Ratio] 0 % 0-5 [facility] Work Phone: MCHC Auto (RBC) [Mass/Vol]on 12-13-2021 MCHC (RBC) [Mass/Vol] 32.7 g/dL 32-36 [facility] Work Phone: No Panel Informationon 12-13 Reactive Lymphocytes [facility] Work Phone: Platelets bldon 12-13-2021 Platelets (Bld) [#/Vol] 193 10*3/uL 150-450 [facility] Work Phone: Absolute lymphocyte counton 11-20-2021 Lymphocytes Auto (Unsp spec) [#/Vol] 2.28 10*3/uL 0.83-4.51 [facility] Work Phone: Basophil percentageon 2021 Basophils/100 WBC (Bld) 0.7 % 0-1 [facility] Work Phone: Eosinophils/100 WBC (Bld) 0.2 % 0-5 [facility] Work Phone: Neutrophils (Bld) [#/Vol] 6.6 10*3/uL 2.0-7.7 [facility] Work Phone: Neutrophils/100 WBC (Bld) 69.0 % 47-70 [facility] Work Phone: WBC (Bld) [#/Vol] 9.6 10*3/uL 4.4-11.0 [facility] Work Phone: Blood erythrocytes count (nu mber/volume)on 11-20-2021 RBC (Bld) [#/Vol] 5.04 10*6/uL 4.2-5.4 [facility] Work Phone: Blood hemoglobin measurement (mass/volume)on 11-20-2021 Hemoglobin (Bld) [Mass/Vol] 14.7 g/dL 12.0-15.0 [facility] Work Phone: Blood lymphocytes/100 leukoc yteson 11-20-2021 Lymphocytes/100 WBC (Bld) 23.7 % 19-41 [facility] Work Phone: Blood monocytes/100 leukocyt eson 11-20-2021 Monocytes/100 WBC (Bld) 6.1 % 0-10 [facility] Work Phone: Blood platelet mean volumeon 11-20-2021 Platelet mean volume (Bld) [Entitic vol] 9.9 fL 6.2-12.0 [facility] Work Phone: Determination of erythrocyte mean corpuscular volume (MCV)on 11-20-2021 MCV (RBC) [Entitic vol] 91.1 fL 81-99 [facility] Work Phone: Hematocrit Auto (Bld) [Volum e fraction]on 11-20-2021 Hematocrit (Bld) [Volume fraction] 45.9 % 37-47 [facility] Work Phone: Laboratory - Hematology and Cell countson 11-20-2021 Erythrocyte distribution width (RBC) [Entitic vol] 46.8 fL 35.1-43.9 [facility] Work Phone: Erythrocyte distribution width (RBC) [Ratio] 14.0 % 11.6-14.6 [facility] Work Phone: Immature granulocytes/100 WBC (Bld) 0.300 % 0.0-0.9 [facility] Work Phone: [phone] Comment on above: IG% - Immature Granu locytes (promyelocytes, myelocytes and metamyelocytes) > 1% indicates that a LEFT SHIFT is Present. MCH (RBC) [Entitic mass] 29.2 pg 27.0-32.0 [facility] Work Phone: Nucleated RBC/100 WBC (Bld) [Ratio] 0 % 0-5 [facility] Work Phone: MCHC Auto (RBC) [Mass/Vol]on 11-20-2021 MCHC (RBC) [Mass/Vol] 32.0 g/dL 32-36 [facility] Work Phone: No Panel Informationon 11-20 Reactive Lymphocytes [facility] Work Phone: [phone] Platelets bldon 11-20-2021 Platelets (Bld) [#/Vol] 227 10*3/uL 150-450 [facility] Work Phone: Absolute lymphocyte counton 10-16-2021 Lymphocytes Auto (Unsp spec) [#/Vol] 2.02 10*3/uL 0.83-4.51 [facility] Work Phone: Basophil percentageon 2021 Ammonia (P) [Moles/Vol] 22.0 umol/L 11-32 [facility] Work Phone: [phone] Comment on above: Slight Lipemia, Resu lt may be falsely increased. Basophils/100 WBC (Bld) 0.6 % 0-1 [facility] Work Phone: Eosinophils/100 WBC (Bld) 0.1 % 0-5 [facility] Work Phone: Neutrophils (Bld) [#/Vol] 6.2 10*3/uL 2.0-7.7 [facility] Work Phone: Neutrophils/100 WBC (Bld) 70.6 % 47-70 [facility] Work Phone: WBC (Bld) [#/Vol] 8.8 10*3/uL 4.4-11.0 [facility]: Blood erythrocytes count (nu mber/volume)on 10-16-2021 RBC (Bld) [#/Vol] 4.93 10*6/uL 4.2-5.4 [facility] Work Phone: Blood hemoglobin measurement (mass/volume)on 10-16-2021 Hemoglobin (Bld) [Mass/Vol] 14.2 g/dL 12.0-15.0 [facility] Work Phone: Blood lymphocytes/100 leukoc yteson 10-16-2021 Lymphocytes/100 WBC (Bld) 23.1 % 19-41 [facility] Work Phone: Blood monocytes/100 leukocyt eson 10-16-2021 Monocytes/100 WBC (Bld) 5.1 % 0-10 [facility] Work Phone: Blood platelet mean volumeon 10-16-2021 Platelet mean volume (Bld) [Entitic vol] 9.6 fL 6.2-12.0 [facility] Work Phone: Determination of erythrocyte mean corpuscular volume (MCV)on 10-16-2021 MCV (RBC) [Entitic vol] 89.7 fL 81-99 [facility] Work Phone: Hematocrit Auto (Bld) [Volum e fraction]on 10-16-2021 Hematocrit (Bld) [Volume fraction] 44.2 % 37-47 [facility] Work Phone: Laboratory - Hematology and Cell countson 10-16-2021 Erythrocyte distribution width (RBC) [Entitic vol] 44.6 fL 35.1-43.9 [facility] Work Phone: Erythrocyte distribution width (RBC) [Ratio] 13.7 % 11.6-14.6 [facility] Work Phone: Immature granulocytes/100 WBC (Bld) 0.500 % 0.0-0.9 [facility] Work Phone: Comment on above: IG% - Immature Granu locytes (promyelocytes, myelocytes and metamyelocytes) > 1% indicates that a LEFT SHIFT is Present. MCH (RBC) [Entitic mass] 28.8 pg 27.0-32.0 [facility] Work Phone: Nucleated RBC/100 WBC (Bld) [Ratio] 0 % 0-5 [facility] Work Phone: MCHC Auto (RBC) [Mass/Vol]on 10-16-2021 MCHC (RBC) [Mass/Vol] 32.1 g/dL 32-36 [facility] Work Phone: Platelets bldon 10-16-2021 Platelets (Bld) [#/Vol] 226 10*3/uL 150-450 [facility] Work Phone: Absolute lymphocyte counton 09-24-2021 Lymphocytes Auto (Unsp spec) [#/Vol] 2.52 10*3/uL 0.83-4.51 [facility] Work Phone: Basophil percentageon 2020 Eosinophils/100 WBC (Bld) 0.2 % 0-5 [facility] Work Phone: Neutrophils (Bld) [#/Vol] 6.5 10*3/uL 2.0-7.7 [facility] Work Phone: WBC (Bld) [#/Vol] 9.6 10*3/uL 4.4-11.0 [facility] Work Phone: Blood erythrocytes count (nu mber/volume)on 09-24-2021 RBC (Bld) [#/Vol] 4.89 10*6/uL 4.2-5.4 [facility] Work Phone: Blood hemoglobin measurement (mass/volume)on 09-24-2021 Hemoglobin (Bld) [Mass/Vol] 14.4 g/dL 12.0-15.0 [facility] Work Phone: Blood lymphocytes/100 leukoc yteson 09-24-2021 Lymphocytes/100 WBC (Bld) 26.2 % 19-41 [facility] Work Phone: Blood monocytes/100 leukocyt eson 09-24-2021 Monocytes/100 WBC (Bld) 4.7 % 0-10 [facility] Work Phone: Blood platelet mean volumeon 09-24-2021 Platelet mean volume (Bld) [Entitic vol] 12.3 fL 6.2-12.0 [facility] Work Phone: Determination of erythrocyte mean corpuscular volume (MCV)on 09-24-2021 MCV (RBC) [Entitic vol] 90.2 fL 81-99 [facility] Work Phone: Hematocrit Auto (Bld) [Volum e fraction]on 09-24-2021 Hematocrit (Bld) [Volume fraction] 44.1 % 37-47 [facility] Work Phone: Laboratory - Hematology and Cell countson 09-24-2021 Basophils/100 WBC (Unsp spec) 0.5 % 0-1 [facility] Work Phone: Erythrocyte distribution width (RBC) [Entitic vol] 46.2 fL 35.1-43.9 [facility] Work Phone: Erythrocyte distribution width (RBC) [Ratio] 14.0 % 11.6-14.6 [facility] Work Phone: Immature granulocytes/100 WBC (Bld) 0.500 % 0.0-0.9 [facility] Work Phone: Comment on above: IG% - Immature Granu locytes (promyelocytes, myelocytes and metamyelocytes) > 1% indicates that a LEFT SHIFT is Present. MCH (RBC) [Entitic mass] 29.4 pg 27.0-32.0 [facility] Work Phone: Neutrophils/100 WBC (Bld) 67.9 % 47-70 [facility] Work Phone: Nucleated RBC/100 WBC (Bld) [Ratio] 0 % 0-5 [facility] Work Phone: MCHC Auto (RBC) [Mass/Vol]on 09-24-2021 MCHC (RBC) [Mass/Vol] 32.7 g/dL 32-36 [facility] Work Phone: Platelets bldon 09-24-2021 Platelets (Bld) [#/Vol] 179 10*3/uL 150-450 [facility] Work Phone: [phone] BRAIN WO IVCONon 07-19-[address] BRAIN WO IVCON * * *Final Report* * * DATE OF EXAM: Jul 19 2021 4:54PM [facility] 0504 - CT BRAIN WO IVCON / [...] reduction techniques were required COMPARISON: None. 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 Post-operative change: [...] warranted. 2. Chronic changes, as detailed above. [employer] Consultant: [facility] Transcribe Date/Time: Jul 19 2021 5:08P Dictated by : CHAPARRITA STRINGER MD This examination was interpreted and the report reviewed and electronically signed by: CHAPARRITA STRINGER MD on Jul 19 2021 5:14PM EST [id number] Normal [facility] XR Chest PA and Lateralon IMPRESSION: No acute radiographic abnormality. [employer] Consultant[facility] Transcribe Date/Time: Jul 19 2021 3:33P Dictated [...] the thoracic spine. DIVISION OF RADIOLOGY Provider, [facility] - 07/19/2021 * * *Final Report* [...] spine. IMPRESSION IMPRESSION: No acute radiographic abnormality. [employer] Consultant: [facility] Transcribe Date/Time: Jul 19 2021 3:33P Dictated by : OMAR DAILEY MD This examination was interpreted and the report reviewed and electronically signed by: OMAR DAILEY MD on Jul 19 2021 3:33PM [facility] Radiology Study observation (narrative) [facility] XR Chest PA and LateralOrder ed By: [facility] Provider on 07-19-2021 [facility] XR Chest PA and Lateralon IMPRESSION: No new or acute radiographic abnormality. Mild areas of scarring or atelectasis are less prominent than previously. [employer] Consultant: [facility] Transcribe Date/Time: Oct 18 2020 9:56A Dictated by : SEGUNDO MOORE MD This examination was interpreted and the report reviewed and electronically signed by: SEGUNDO MOORE MD on Oct 18 2020 9:59AM [facility] DIVISION OF RADIOLOGY * * *Final Report* [...] Normal. Other: - DIVISION [facility] RADIOLOGY [facility] * * *Final Report* * [...] or atelectasis are less prominent than previously. [employer] Consultant: [facility] Transcribe Date/Time: Oct 18 2020 9:56A Dictated by : SEGUNDO MOORE MD This examination was interpreted and the report reviewed and electronically signed by: SEGUNDO MOORE MD on Oct 18 2020 9:59AM EST [facility] Radiology Study observation (narrative) [facility] XR Chest PA and LateralOrder ed By: [facility] Provider on 10-18-2020 [facility] COVID-19 virus antigen assay SARS-CoV-2 (COVID-19) Ag IA.rapid Ql (Resp) [facility] Work Phone: Vital Signs Date Time Vital Sign Value Performing Clinician Facility 04-04-2025 15:04-0400 Body mass index (BMI) [Ratio] 35.9 kg/m2 Fuentes Renee MD Work Phone: [facility] 04-04-2025 15:04-0400 Body weight 86.18 kg Fuentes Renee MD Work Phone: [facility] 04-04-2025 15:04-0400 Diastolic blood pressure 85 mm[Hg] Fuentes Renee MD Work Phone: [facility] 04-04-2025 15:04-0400 Heart rate 100 /min Fuentes Renee MD Work Phone: [facility] 04-04-2025 15:04-0400 SaO2% (BldA) [Mass fraction] 93 % Fuentes Renee MD Work Phone: [facility] 04-04-2025 15:04-0400 Systolic blood pressure 126 mm[Hg] Fuentes Renee MD Work Phone: [facility] 03-29-2025 08:59-0400 Body height 154.9 cm Aleksandar Jones MD Work Phone: [facility] 03-29-2025 08:59-0400 Body mass index (BMI) [Ratio] 35.45 kg/m2 Aleksandar Jones MD Work Phone: [facility] 03-29-2025 08:59-0400 Body temperature 97.2 [degF] Aleksandar Jones MD Work Phone: [facility] 03-29-2025 08:59-0400 Body weight 85.09 kg Aleksandar Jones MD Work Phone: [facility] 03-29-2025 08:59-0400 Diastolic blood pressure 72 mm[Hg] Aleksandar Jones MD Work Phone: [facility] 03-29-2025 08:59-0400 Heart rate 100 /min Aleksandar Joens MD Work Phone: [facility] 03-29-2025 08:59-0400 Respiratory rate 16 /min Aleksandar Jones MD Work Phone: [facility] 03-29-2025 08:59-0400 SaO2% (BldA) [Mass fraction] 91 % Aleksandar Jones MD Work Phone: [facility] Comment on above: nail english 03-29-2025 08:59-0400 Systolic blood pressure 120 mm[Hg] Aleksandar Jones MD Work Phone: [facility] 01-12-2025 10:04-0400 Body mass index (BMI) [Ratio] 35.52 kg/m2 Aleksandar Jones MD Work Phone: [facility] 01-12-2025 10:04-0400 Body weight 85.28 kg Aleksandar Jones MD Work Phone: [facility] 01-12-2025 10:04-0400 Diastolic blood pressure 72 mm[Hg] Aleksandar Jones MD Work Phone: [facility] 01-12-2025 10:04-0400 Heart rate 92 /min Aleksandar Jones MD Work Phone: [facility] 01-12-2025 10:04-0400 SaO2% (BldA) [Mass fraction] 94 % Aleksandar Jones MD Work Phone: [facility] 01-12-2025 10:04-0400 Systolic blood pressure 122 mm[Hg] Aleksandar Jones MD Work Phone: [facility] 01-10-2025 22:11-0400 Body mass index (BMI) [Ratio] 36.6 kg/m2 Dr. Aleksandar Jones MD Work Phone: [facility] 12-28-2024 14:58-0400 Body height 154.9 cm Aleksandar Jones MD Work Phone: [facility] 12-28-2024 14:58-0400 Body mass index (BMI) [Ratio] 35.14 kg/m2 Aleksandar Jones MD Work Phone: [facility] 12-28-2024 14:58-0400 Body weight 84.37 kg Aleksandar Jones MD Work Phone: [facility] 12-28-2024 14:58-0400 Diastolic blood pressure 60 mm[Hg] Aleksandar Jones MD Work Phone: [facility] 12-28-2024 14:58-0400 Heart rate 113 /min Aleksandar Jones MD Work Phone: [facility] 12-28-2024 14:58-0400 SaO2% (BldA) [Mass fraction] 92 % Aleksandar Jones MD Work Phone: [facility] 12-28-2024 14:58-0400 Systolic blood pressure 126 mm[Hg] Aleksandar Jones MD Work Phone: [facility] 12-21-2024 12:29-0400 Body temperature 98.9 [degF] Dr. Aleksandar Jones MD Work Phone: [facility] 12-21-2024 12:29-0400 Diastolic blood pressure 99 mm[Hg] Dr. Aleksandar Jones MD Work Phone: 4(572)552-077473 [place] [address] 12-21-2024 12:29-0400 Heart rate 78 /min Dr. Aleksandar Jones MD Work Phone: 5(147)823-096337 [place] [address] 12-21-2024 12:29-0400 Respiratory rate 18 /min Dr. Aleksandar Jones MD Work Phone: 4(669)917-725337 [place] [address] 12-21-2024 12:29-0400 SaO2% (BldA) [Mass fraction] 99 % Dr. Aleksandar Jones MD Work Phone: 1(893)613-196737 [place] [address] 12-21-2024 12:29-0400 Systolic blood pressure 137 mm[Hg] Dr. Aleksandar Jones MD Work Phone: 8(769)669-410637 [place] [address] 12-21-2024 08:44-0400 Body height 154.[address] Aleksandar Jones MD Work Phone: 8(825)842-439837 [place] [address] 12-21-2024 08:44-0400 Body mass index (BMI) [Ratio] 35.7 kg/m2 Dr. Aleksandar Jones MD Work Phone: 6(062)958-907737 [place] [address] 12-21-2024 08:44-0400 Body weight 85.[address] Aleksandar Jones MD Work Phone: 4(389)757-610237 [place] [address] 12-11-2024 04:48-0500 Body mass index (BMI) [Ratio] 36.6 kg/m2 Dr. Aleksandar Jones MD Work Phone: 7(499)701-096573 [place] [address] 12-07-2024 09:58-0500 Diastolic blood pressure 72 mm[Hg] Radha Batista MANAGER [employer]ION[employer].PBX TEACHER Work Phone: [facility] 12-07-2024 09:58-0500 Heart rate 102 /min Radha Batista MANAGER [employer]IONAL.PB[employer] TEACHER Work Phone: [facility] 12-07-2024 09:58-0500 Respiratory rate 18 /min Radha Batista MANAGER [employer]IONAL.PBX TEACHER Work Phone: [facility] 12-07-2024 09:58-0500 SaO2% (BldA) [Mass fraction] 92 % Radha Batista MANAGER REGIONAL.PBX TEACHER Work Phone: [facility] 12-07-2024 09:58-0500 Systolic blood pressure 108 mm[Hg] Radha Batista MANAGER REGIONAL.PBX TEACHER Work Phone: [facility] 11-13-2024 01:33-0500 Body mass index (BMI) [Ratio] 36.6 kg/m2 Dr. Aleksandar Jones MD Work Phone: 0(751)677-187137 [place] [address] 11-12-2024 13:40-0500 Body temperature 97.6 [degF] Dr. Aleksandar Jones MD Work Phone: 0(660)241-974837 [place] [address] 11-12-2024 13:40-0500 Diastolic blood pressure 75 mm[Hg] Dr. Aleksandar Jones MD Work Phone: 3(394)535-130837 [place] [address] 11-12-2024 13:40-0500 Heart rate 107 /min Dr. Aleksandar Jones MD Work Phone: 2(449)081-116737 [place] [address] 11-12-2024 13:40-0500 Respiratory rate 18 /min Dr. Aleksandar Jones MD Work Phone: 6(880)031-998037 [place] [address] 11-12-2024 13:40-0500 SaO2% (BldA) [Mass fraction] 93 % Dr. Aleksandar Jones MD Work Phone: 7(681)868-233337 [place] [address] 11-12-2024 13:40-0500 Systolic blood pressure 134 mm[Hg] Dr. Aleksandar Jones MD Work Phone: 5(586)626-137437 [place] [address] 11-12-2024 06:00-0500 Body mass index (BMI) [Ratio] 34.3 kg/m2 Dr. Aleksandar Jones MD Work Phone: 8(695)060-674337 [place] [address] 11-12-2024 06:00-0500 Body weight 82.[address] Aleksandar Jones MD Work Phone: 3(763)058-386737 [place] [address] 11-10-2024 07:56-0500 Inhaled oxygen flow rate 2 L/min Dr. Aleksandar Jones MD Work Phone: [facility] 11-09-2024 18:05-0500 Body temperature 99.19 [degF] Zaira Mancilla MANAGER REGIONAL.PBX TEACHER Work Phone: [facility] 11-09-2024 18:05-0500 Heart rate 115 /min Zaira Mancilla MANAGER [employer]IONAL.PBX TEACHER Work Phone: [facility] 11-09-2024 18:05-0500 Respiratory rate 32 /min Zaira Mancilla MANAGER [employer]IONAL.PBX TEACHER Work Phone: [facility] 11-09-2024 18:05-0500 SaO2% (BldA) [Mass fraction] 94 % Zaira Mancilla MANAGER REGIONAL.PBX TEACHER Work Phone: [facility] 11-09-2024 16:56-0500 Body mass index (BMI) [Ratio] 34.42 kg/m2 Zaira Mancilla MANAGER REGIONAL.PBX TEACHER Work Phone: [facility] 11-09-2024 16:56-0500 Body weight 84.3 kg Zaira Mancilla MANAGER REGIONAL.PBX TEACHER Work Phone: [facility] 11-09-2024 16:56-0500 Diastolic blood pressure 80 mm[Hg] Zaira Mancilla MANAGER REGIONAL.PBX TEACHER Work Phone: [facility] 11-09-2024 16:56-0500 Systolic blood pressure 122 mm[Hg] Zaira Mancilla MANAGER REGIONAL.PBX TEACHER Work Phone: [facility] 11-02-2024 13:59-0500 Diastolic blood pressure 76 mm[Hg] Radha Haagen MANAGER REGIONAL.PBX TEACHER Work Phone: [facility] 11-02-2024 13:59-0500 Heart rate 110 /min Radha Haagen MANAGER REGIONAL.PBX TEACHER Work Phone: [facility] 11-02-2024 13:59-0500 Respiratory rate 16 /min Radha Haagen MANAGER REGIONAL.PBX TEACHER Work Phone: [facility] 11-02-2024 13:59-0500 SaO2% (BldA) [Mass fraction] 93 % Radha Batista MANAGER REGIONAL.PBX TEACHER Work Phone: 2(124)692-033096 [place] [address] 11-02-2024 13:59-0500 Systolic blood pressure 128 mm[Hg] Radha Batista MANAGER REGIONAL.PBX TEACHER Work Phone: 4(276)379-324496 [place] [address] 10-14-2024 18:59-0500 Body temperature 98.3 [degF] Dr. Aleksandar Jones MD Work Phone: 5(687)969-228137 [place] [address] 10-14-2024 18:59-0500 Diastolic blood pressure 85 mm[Hg] Dr. Aleksandar Jones MD Work Phone: 5(519)577-582337 [place] [address] 10-14-2024 18:59-0500 Heart rate 105 /min Dr. Aleksandar Jones MD Work Phone: 6(073)294-761037 [place] [address] 10-14-2024 18:59-0500 Respiratory rate 18 /min Dr. Aleksandar Jones MD Work Phone: 0(723)544-431337 [place] [address] 10-14-2024 18:59-0500 SaO2% (BldA) [Mass fraction] 94 % Dr. Aleksandar Jones MD Work Phone: 6(641)045-793337 [place] [address] 10-14-2024 18:59-0500 Systolic blood pressure 134 mm[Hg] Dr. Aleksandar Jones MD Work Phone: 8(775)622-508837 [place] [address] 10-13-2024 04:23-0500 Body mass index (BMI) [Ratio] 36.6 kg/m2 Dr. Aleksandar Jones MD Work Phone: 4(236)604-220873 [place] [address] 09-28-2024 12:55-0500 Body mass index (BMI) [Ratio] 34.63 kg/m2 Radha Batista MANAGER [employer]IONAL.PBX TEACHER Work Phone: [facility] 09-28-2024 12:55-0500 Body weight 84.82 kg Radha Batista MANAGER REGIONAL.PBX TEACHER Work Phone: [facility] 09-28-2024 12:55-0500 Diastolic blood pressure 80 mm[Hg] Radha Batista MANAGER REGIONAL.PBX TEACHER Work Phone: [facility] 09-28-2024 12:55-0500 Heart rate 99 /min Radha Haagen MANAGER [employer]IONAL.PBX TEACHER Work Phone: [facility] 09-28-2024 12:55-0500 Respiratory rate 16 /min Radha Batista MANAGER REGIONAL.PBX TEACHER Work Phone: [facility] 09-28-2024 12:55-0500 SaO2% (BldA) [Mass fraction] 97 % Radha Haagen MANAGER REGIONAL.PBX TEACHER Work Phone: [facility] 09-28-2024 12:55-0500 Systolic blood pressure 124 mm[Hg] Radha Batista MANAGER REGIONAL.PBX TEACHER Work Phone: [facility] 09-20-2024 12:51-0500 Body mass index (BMI) [Ratio] 34.52 kg/m2 Fuentes Renee MD Work Phone: [facility] 09-20-2024 12:51-0500 Body weight 84.55 kg Fuentes Renee MD Work Phone: [facility] 09-20-2024 12:51-0500 Diastolic blood pressure 79 mm[Hg] Fuentes Renee MD Work Phone: [facility] 09-20-2024 12:51-0500 Heart rate 104 /min Fuentes Renee MD Work Phone: [facility] 09-20-2024 12:51-0500 SaO2% (BldA) [Mass fraction] 92 % Fuentes Renee MD Work Phone: [facility] 09-20-2024 12:51-0500 Systolic blood pressure 126 mm[Hg] Fuentes Renee MD Work Phone: [facility] 09-11-2024 23:34-0500 Body mass index (BMI) [Ratio] 36.6 kg/m2 Dr. Aleksandar Jones MD Work Phone: [facility] 09-08-2024 09:06-0500 Diastolic blood pressure 60 mm[Hg] Radha Batista MANAGER REGIONAL.PBX TEACHER Work Phone: [facility] 09-08-2024 09:06-0500 Heart rate 94 /min Radha Haagen MANAGER REGIONAL.PBX TEACHER Work Phone: [facility] 09-08-2024 09:06-0500 Respiratory rate 16 /min Radha Haagen MANAGER REGIONAL.PBX TEACHER Work Phone: [facility] 09-08-2024 09:06-0500 SaO2% (BldA) [Mass fraction] 94 % Radha Haagen MANAGER REGIONAL.PBX TEACHER Work Phone: [facility] 09-08-2024 09:06-0500 Systolic blood pressure 122 mm[Hg] Radha Haagen MANAGER REGIONAL.PBX TEACHER Work Phone: [facility] 08-24-2024 15:05-0500 Body mass index (BMI) [Ratio] 34.82 kg/m2 Shelia Suppan MANAGER REGIONAL.PBX TEACHER Work Phone: [facility] 08-24-2024 15:05-0500 Body temperature 97.5 [degF] Shelia Suppan MANAGER REGIONAL.PBX TEACHER Work Phone: [facility] 08-24-2024 15:05-0500 Body weight 85.28 kg Shelia Suppan MANAGER REGIONAL.PBX TEACHER Work Phone: [facility] 08-24-2024 15:05-0500 Diastolic blood pressure 64 mm[Hg] Shelia Suppan MANAGER REGIONAL.PBX TEACHER Work Phone: [facility] 08-24-2024 15:05-0500 Heart rate 109 /min Shelia Suppan MANAGER REGIONAL.PBX TEACHER Work Phone: [facility] 08-24-2024 15:05-0500 Respiratory rate 24 /min Shelia Suppan MANAGER REGIONAL.PBX TEACHER Work Phone: [facility] 08-24-2024 15:05-0500 SaO2% (BldA) [Mass fraction] 94 % Shelia Suppan MANAGER REGIONAL.PBX TEACHER Work Phone: [facility] 08-24-2024 15:05-0500 Systolic blood pressure 132 mm[Hg] Shelia Suppan MANAGER REGIONAL.PBX TEACHER Work Phone: [facility] 08-12-2024 20:47-0400 Body mass index (BMI) [Ratio] 36.6 kg/m2 Dr. Aleksandar Jones MD Work Phone: [facility] 07-23-2024 08:43-0400 Body mass index (BMI) [Ratio] 34.3 kg/m2 Adriano Menezes MANAGER REGIONAL.PBX TEACHER Work Phone: [facility] 07-23-2024 08:43-0400 Body temperature 97 [degF] Adriano Menezes MANAGER REGIONAL.PBX TEACHER Work Phone: [facility] 07-23-2024 08:43-0400 Body weight 84 kg Adriano Menezes MANAGER REGIONAL.PBX TEACHER Work Phone: [facility] 07-23-2024 08:43-0400 Diastolic blood pressure 67 mm[Hg] Adriano Menezes MANAGER REGIONAL.PBX TEACHER Work Phone: [facility] 07-23-2024 08:43-0400 Heart rate 93 /min Adriano Menezes MANAGER REGIONAL.PBX TEACHER Work Phone: [facility] 07-23-2024 08:43-0400 Respiratory rate 22 /min Adriano Menezes MANAGER REGIONAL.PBX TEACHER Work Phone: [facility] 07-23-2024 08:43-0400 SaO2% (BldA) [Mass fraction] 96 % Adriano Menezes MANAGER REGIONAL.PBX TEACHER Work Phone: [facility] 07-23-2024 08:43-0400 Systolic blood pressure 100 mm[Hg] Adriano Menezes MANAGER REGIONAL.PBX TEACHER Work Phone: [facility] 07-06-2024 14:23-0400 Body mass index (BMI) [Ratio] 34.45 kg/m2 Radha Batista MANAGER REGIONAL.PBX TEACHER Work Phone: [facility] 07-06-2024 14:23-0400 Body weight 84.37 kg Radha Batista MANAGER REGIONAL.PBX TEACHER Work Phone: [facility] 07-06-2024 14:23-0400 Diastolic blood pressure 82 mm[Hg] Radha Haagen MANAGER REGIONAL.PBX TEACHER Work Phone: [facility] 07-06-2024 14:23-0400 Heart rate 108 /min Radha Haagen MANAGER REGIONAL.PBX TEACHER Work Phone: [facility] 07-06-2024 14:23-0400 Respiratory rate 16 /min Radha Haagen MANAGER REGIONAL.PBX TEACHER Work Phone: [facility] 07-06-2024 14:23-0400 SaO2% (BldA) [Mass fraction] 91 % Radha Haagen MANAGER REGIONAL.PBX TEACHER Work Phone: [facility] 07-06-2024 14:23-0400 Systolic blood pressure 132 mm[Hg] Radha Haagen MANAGER REGIONAL.PBX TEACHER Work Phone: [facility] 04-14-2024 12:59-0400 Diastolic blood pressure 70 mm[Hg] Radha Haagen MANAGER REGIONAL.PBX TEACHER Work Phone: [facility] 04-14-2024 12:59-0400 Heart rate 110 /min Radha Haagen MANAGER REGIONAL.PBX TEACHER Work Phone: [facility] 04-14-2024 12:59-0400 Respiratory rate 16 /min Radha Haagen MANAGER REGIONAL.PBX TEACHER Work Phone: [facility] 04-14-2024 12:59-0400 SaO2% (BldA) [Mass fraction] 93 % Radha Haagen MANAGER REGIONAL.PBX TEACHER Work Phone: [facility] 04-14-2024 12:59-0400 Systolic blood pressure 118 mm[Hg] Radha Haagen MANAGER REGIONAL.PBX TEACHER Work Phone: [facility] 03-30-2024 08:52-0400 Body height 156.5 cm Radha Haagen MANAGER REGIONAL.PBX TEACHER Work Phone: [facility] 03-30-2024 08:52-0400 Body mass index (BMI) [Ratio] 33.71 kg/m2 Radha Haagen MANAGER REGIONAL.PBX TEACHER Work Phone: [facility] 03-30-2024 08:52-0400 Body weight 82.56 kg Radha Haagen MANAGER REGIONAL.PBX TEACHER Work Phone: [facility] 03-30-2024 08:52-0400 Diastolic blood pressure 72 mm[Hg] Radha Haagen MANAGER REGIONAL.PBX TEACHER Work Phone: [facility] 03-30-2024 08:52-0400 Heart rate 91 /min Radha Haagen MANAGER REGIONAL.PBX TEACHER Work Phone: [facility] 03-30-2024 08:52-0400 Respiratory rate 16 /min Radha Haagen MANAGER REGIONAL.PBX TEACHER Work Phone: [facility] 03-30-2024 08:52-0400 SaO2% (BldA) [Mass fraction] 96 % Radha Haagen MANAGER REGIONAL.PBX TEACHER Work Phone: [facility] 03-30-2024 08:52-0400 Systolic blood pressure 108 mm[Hg] Radha Haagen MANAGER REGIONAL.PBX TEACHER Work Phone: [facility] 03-19-2024 08:47-0400 Diastolic blood pressure 80 mm[Hg] Radha Haagen MANAGER REGIONAL.PBX TEACHER Work Phone: [facility] 03-19-2024 08:47-0400 Heart rate 98 /min Radha Haagen MANAGER REGIONAL.PBX TEACHER Work Phone: [facility] 03-19-2024 08:47-0400 Respiratory rate 16 /min Radha Haagen MANAGER REGIONAL.PBX TEACHER Work Phone: [facility] 03-19-2024 08:47-0400 SaO2% (BldA) [Mass fraction] 91 % Radha Haagen MANAGER REGIONAL.PBX TEACHER Work Phone: [facility] 03-19-2024 08:47-0400 Systolic blood pressure 126 mm[Hg] Radha Haagen MANAGER REGIONAL.PBX TEACHER Work Phone: [facility] 03-02-2024 08:50-0400 Body mass index (BMI) [Ratio] 34.01 kg/m2 Radha Haagen MANAGER REGIONAL.PBX TEACHER Work Phone: [facility] 03-02-2024 08:50-0400 Body weight 81.65 kg Radha Haagen MANAGER REGIONAL.PBX TEACHER Work Phone: [facility] 03-02-2024 08:50-0400 Diastolic blood pressure 70 mm[Hg] Radha Haagen MANAGER REGIONAL.PBX TEACHER Work Phone: [facility] 03-02-2024 08:50-0400 Heart rate 93 /min Radha Haagen MANAGER REGIONAL.PBX TEACHER Work Phone: [facility] 03-02-2024 08:50-0400 Respiratory rate 16 /min Radha Haagen MANAGER REGIONAL.PBX TEACHER Work Phone: [facility] 03-02-2024 08:50-0400 SaO2% (BldA) [Mass fraction] 92 % Radha Haagen MANAGER REGIONAL.PBX TEACHER Work Phone: [facility] 03-02-2024 08:50-0400 Systolic blood pressure 108 mm[Hg] Radha Haagen MANAGER REGIONAL.PBX TEACHER Work Phone: [facility] 02-05-2024 08:00-0400 Diastolic blood pressure 72 mm[Hg] Jaci Kashuba CONCESSION SUPERVISOR Work Phone: [facility] 02-05-2024 08:00-0400 Heart rate 95 /min Jaci Kashuba CONCESSION SUPERVISOR Work Phone: [facility] 02-05-2024 08:00-0400 SaO2% (BldA) [Mass fraction] 94 % Jaci Kashuba CONCESSION SUPERVISOR Work Phone: [facility] Comment on above: increased to 97 with instruction for vicente p breathing 02-05-2024 08:00-0400 Systolic blood pressure 113 mm[Hg] Jaci Kashuba CONCESSION SUPERVISOR Work Phone: [facility] 01-21-2024 11:00-0400 Diastolic blood pressure 78 mm[Hg] Long Golias PT Work Phone: [facility] 01-21-2024 11:00-0400 Heart rate 98 /min Long Golias PT Work Phone: [facility] 01-21-2024 11:00-0400 Systolic blood pressure 118 mm[Hg] Long Golias PT Work Phone: [facility] 01-13-2024 09:07-0400 Body weight 82.56 kg Radha Batista MANAGER REGIONAL.PBX TEACHER Work Phone: [facility] 01-13-2024 09:07-0400 Diastolic blood pressure 80 mm[Hg] Radha Batista MANAGER REGIONAL.PBX TEACHER Work Phone: [facility] 01-13-2024 09:07-0400 Heart rate 89 /min Radha Batista MANAGER REGIONAL.PBX TEACHER Work Phone: [facility] 01-13-2024 09:07-0400 Respiratory rate 16 /min Radha Batista MANAGER REGIONAL.PBX TEACHER Work Phone: [facility] 01-13-2024 09:07-0400 SaO2% (BldA) [Mass fraction] 97 % Radha Batista MANAGER REGIONAL.PBX TEACHER Work Phone: [facility] 01-13-2024 09:07-0400 Systolic blood pressure 110 mm[Hg] Radha Batista MANAGER REGIONAL.PBX TEACHER Work Phone: [facility] 01-10-2024 22:32-0400 Body mass index (BMI) [Ratio] 36.6 kg/m2 [facility] 12-13-2023 23:59-0500 Body temperature 98 [degF] Dr. Aleksandar Jones Work Phone: [facility] 12-13-2023 23:59-0500 Diastolic blood pressure 68 mm[Hg] Dr. Aleksandar Jones Work Phone: [facility] 12-13-2023 23:59-0500 Heart rate 88 /min Dr. Aleksandar Jones Work Phone: [facility] 12-13-2023 23:59-0500 Respiratory rate 16 /min Dr. Aleksandar Jones Work Phone: [facility] 12-13-2023 23:59-0500 SaO2% (BldA) [Mass fraction] 97 % Dr. Aleksandar Jones Work Phone: [facility] 12-13-2023 23:59-0500 Systolic blood pressure 112 mm[Hg] Dr. Aleksandar Jones Work Phone: [facility] 12-13-2023 18:09-0500 Body height 154.[address] Aleksandar Jones Work Phone: [facility] 12-13-2023 18:09-0500 Body mass index (BMI) [Ratio] 33.4 kg/m2 Dr. Aleksandar Jones Work Phone: [facility] 12-13-2023 18:09-0500 Body weight 80.[address] Aleksandar Jones Work Phone: [facility] 12-11-2023 23:05-0500 Body mass index (BMI) [Ratio] 36.6 kg/m2 [facility] 11-12-2023 22:38-0500 Body mass index (BMI) [Ratio] 36.6 kg/m2 Dr. Aleksandar Jones Work Phone: [facility] 10-12-2023 20:50-0500 Body mass index (BMI) [Ratio] 36.6 kg/m2 Dr. Aleskandar Jones Work Phone: [facility] 09-22-2023 15:48-0500 Body weight 78.93 kg Fuentes Renee MD Work Phone: [facility] 09-22-2023 15:48-0500 Diastolic blood pressure 76 mm[Hg] Fuentes Renee MD Work Phone: [facility] 09-22-2023 15:48-0500 Heart rate 114 /min Fuentes Renee MD Work Phone: [facility] 09-22-2023 15:48-0500 SaO2% (BldA) [Mass fraction] 96 % Fuentes Renee MD Work Phone: [facility] 09-22-2023 15:48-0500 Systolic blood pressure 118 mm[Hg] Fuentes Renee MD Work Phone: [facility] 09-12-2023 03:19-0500 Body mass index (BMI) [Ratio] 36.6 kg/m2 Dr. Aleksandar Jones Work Phone: [facility] 08-29-2023 15:12-0500 Body height 154.9 cm Alma Rox MANAGER REGIONAL.PBX TEACHER Work Phone: [facility] 08-29-2023 15:12-0500 Body weight 78.93 kg Alma [place] MANAGER REGIONAL.PBX TEACHER Work Phone: [facility] 08-29-2023 15:12-0500 Diastolic blood pressure 72 mm[Hg] Alma Rox MANAGER REGIONAL.PBX TEACHER Work Phone: [facility] 08-29-2023 15:12-0500 Systolic blood pressure 118 mm[Hg] Alma [place] MANAGER REGIONAL.PBX TEACHER Work Phone: [facility] 08-16-2023 13:15-0400 Body temperature 98 [degF] Dr. Aleksandar Jones Work Phone: [facility] 08-16-2023 13:15-0400 Diastolic blood pressure 73 mm[Hg] Dr. Aleksandar Jones Work Phone: [facility] 08-16-2023 13:15-0400 Heart rate 96 /min Dr. Aleksandar Jones Work Phone: [facility] 08-16-2023 13:15-0400 Respiratory rate 16 /min Dr. Aleksandar Jones Work Phone: [facility] 08-16-2023 13:15-0400 SaO2% (BldA) [Mass fraction] 94 % Dr. Aleksandar Jones Work Phone: [facility] 08-16-2023 13:15-0400 Systolic blood pressure 111 mm[Hg] Dr. Aleksandar Jones Work Phone: [facility] 08-16-2023 12:44-0400 Inhaled oxygen flow rate 0 L/min Dr. Aleksandar Jones Work Phone: 5(573)919-939537 [place] [address] 08-16-2023 04:16-0400 Body mass index (BMI) [Ratio] 31.6 kg/m2 Dr. Aleksandar Jones Work Phone: 7(360)063-479137 [place] [address] 08-16-2023 04:16-0400 Body weight [address] Aleksandar Jones Work Phone: 2(810)002-196637 [place] [address] 08-15-2023 12:03-0400 Body height 154.[address] Aleksandar Jones Work Phone: 6(598)604-370637 [place] [address] 08-14-2023 23:25-0400 Diastolic blood pressure 77 mm[Hg] Dr. Aleksandar Jones Work Phone: 5(505)295-074537 [place] [address] 08-14-2023 23:25-0400 Heart rate 97 /min Dr. Aleksandar Jones Work Phone: 6(738)049-043137 [place] [address] 08-14-2023 23:25-0400 Respiratory rate 26 /min Dr. Aleksandar Jones Work Phone: 4(641)369-058737 [place] [address] 08-14-2023 23:25-0400 SaO2% (BldA) [Mass fraction] 94 % Dr. Aleksandar Jones Work Phone: 2(093)160-567137 [place] [address] 08-14-2023 23:25-0400 Systolic blood pressure 110 mm[Hg] Dr. Aleksandar Jones Work Phone: 8(458)159-069937 [place] [address] 08-14-2023 22:19-0400 Inhaled oxygen flow rate 2 L/min Dr. Aleksandar Jones Work Phone: 6(538)846-497937 [place] [address] 08-14-2023 17:06-0400 Body temperature 97.4 [degF] Dr. Aleksandar Jones Work Phone: 8(503)976-069937 [place] [address] 08-14-2023 17:02-0400 Body height 154.[address] Aleksandar Jones Work Phone: 0(154)229-336337 [place] [address] 08-14-2023 17:02-0400 Body mass index (BMI) [Ratio] 33.5 kg/m2 Dr. Aleksandar Jones Work Phone: 0(638)097-344637 [place] [address] 08-14-2023 17:02-0400 Body weight 80.[address] Aleksandar Jones Work Phone: [facility] 08-12-2023 22:56-0400 Body mass index (BMI) [Ratio] 36.6 kg/m2 Dr. Aleksandar Jones Work Phone: [facility] 07-13-2023 02:43-0400 Body mass index (BMI) [Ratio] 36.6 kg/m2 Dr. Aleksandar Jones Work Phone: [facility] 06-12-2023 22:53-0400 Body mass index (BMI) [Ratio] 36.6 kg/m2 [facility] 05-13-2023 00:41-0400 Body mass index (BMI) [Ratio] 36.6 kg/m2 [facility] 04-29-2023 14:31-0400 Body weight 78.02 kg Radha Dacostaagen MANAGER REGIONAL.PBX TEACHER Work Phone: [facility] 04-29-2023 14:31-0400 Diastolic blood pressure 82 mm[Hg] Radha Haagen MANAGER REGIONAL.PBX TEACHER Work Phone: [facility] 04-29-2023 14:31-0400 Heart rate 109 /min Radha Haagen MANAGER REGIONAL.PBX TEACHER Work Phone: [facility] 04-29-2023 14:31-0400 Respiratory rate 16 /min Radha Haagen MANAGER REGIONAL.PBX TEACHER Work Phone: [facility] 04-29-2023 14:31-0400 SaO2% (BldA) [Mass fraction] 92 % Radha Haagen MANAGER REGIONAL.PBX TEACHER Work Phone: [facility] 04-29-2023 14:31-0400 Systolic blood pressure 124 mm[Hg] Radha Haagen MANAGER REGIONAL.PBX TEACHER Work Phone: [facility] 04-11-2023 22:19-0400 Body mass index (BMI) [Ratio] 36.6 kg/m2 [facility] 03-13-2023 09:37-0400 Body mass index (BMI) [Ratio] 36.6 kg/m2 [facility] 02-09-2023 01:19-0400 Body mass index (BMI) [Ratio] 36.6 kg/m2 [facility] 01-11-2023 00:24-0400 Body mass index (BMI) [Ratio] 36.6 kg/m2 [facility] 12-10-2022 22:30-0500 Body mass index (BMI) [Ratio] 36.6 kg/m2 [facility] 11-13-2022 08:16-0500 Body mass index (BMI) [Ratio] 36.6 kg/m2 [facility] 10-13-2022 03:52-0500 Body mass index (BMI) [Ratio] 36.6 kg/m2 [facility] 09-11-2022 23:10-0500 Body mass index (BMI) [Ratio] 36.6 kg/m2 [facility] 08-28-2022 13:53-0500 Body weight 83.01 kg Radha Batista MANAGER REGIONAL.PBX TEACHER Work Phone: [facility] 08-28-2022 13:53-0500 Diastolic blood pressure 72 mm[Hg] Radha Batista MANAGER REGIONAL.PBX TEACHER Work Phone: [facility] 08-28-2022 13:53-0500 Heart rate 98 /min Radha Batista MANAGER REGIONAL.PBX TEACHER Work Phone: [facility] 08-28-2022 13:53-0500 Respiratory rate 18 /min Radha Batista MANAGER REGIONAL.PBX TEACHER Work Phone: [facility] 08-28-2022 13:53-0500 SaO2% (BldA) [Mass fraction] 96 % Radha Batista MANAGER REGIONAL.PBX TEACHER Work Phone: [facility] 08-28-2022 13:53-0500 Systolic blood pressure 124 mm[Hg] Radha Batista MANAGER REGIONAL.PBX TEACHER Work Phone: [facility] 08-13-2022 10:20-0400 Body mass index (BMI) [Ratio] 36.6 kg/m2 [facility] 08-08-2022 13:42-0400 Body temperature 97.39 [degF] Zaira Mancilla MANAGER REGIONAL.PBX TEACHER Work Phone: [facility] 08-08-2022 13:42-0400 Body weight 82.83 kg Zaria Mancilla MANAGER REGIONAL.PBX TEACHER Work Phone: [facility] 08-08-2022 13:42-0400 Diastolic blood pressure 76 mm[Hg] Zaira Mancilla MANAGER REGIONAL.PBX TEACHER Work Phone: [facility] 08-08-2022 13:42-0400 Heart rate 108 /min Zaira Mancilla MANAGER REGIONAL.PBX TEACHER Work Phone: [facility] 08-08-2022 13:42-0400 Respiratory rate 16 /min Zaira Mancilla MANAGER REGIONAL.PBX TEACHER Work Phone: [facility] 08-08-2022 13:42-0400 SaO2% (BldA) [Mass fraction] 97 % Zaira Mancilla MANAGER REGIONAL.PBX TEACHER Work Phone: [facility] 08-08-2022 13:42-0400 Systolic blood pressure 130 mm[Hg] Zaira Mancilla MANAGER REGIONAL.PBX TEACHER Work Phone: [facility] 07-12-2022 21:34-0400 Body mass index (BMI) [Ratio] 36.6 kg/m2 [facility] 07-05-2022 13:00-0400 Body temperature 97 [degF] Zaira Mancilla MANAGER REGIONAL.PBX TEACHER Work Phone: [facility] 07-05-2022 13:00-0400 Body weight 83.19 kg Zaira Mancilla MANAGER REGIONAL.PBX TEACHER Work Phone: [facility] 07-05-2022 13:00-0400 Diastolic blood pressure 74 mm[Hg] Zaira Mancilla MANAGER REGIONAL.PBX TEACHER Work Phone: [facility] 07-05-2022 13:00-0400 Heart rate 112 /min Zaira Mancilla MANAGER REGIONAL.PBX TEACHER Work Phone: [facility] 07-05-2022 13:00-0400 Respiratory rate 18 /min Zaira Mancilla MANAGER REGIONAL.PBX TEACHER Work Phone: [facility] 07-05-2022 13:00-0400 SaO2% (BldA) [Mass fraction] 97 % Zaira Mancilla MANAGER REGIONAL.PBX TEACHER Work Phone: [facility] 07-05-2022 13:00-0400 Systolic blood pressure 122 mm[Hg] Zaira Mancilla MANAGER REGIONAL.PBX TEACHER Work Phone: [facility] 06-12-2022 23:03-0400 Body mass index (BMI) [Ratio] 36.6 kg/m2 [facility] Work Phone: 06-06-2022 05:56-0400 Diastolic blood pressure 57 mm[Hg] [facility] Work Phone: 06-06-2022 05:56-0400 Heart rate 86 /min [facility] Work Phone: 06-06-2022 05:56-0400 Respiratory rate 18 /min [facility] Work Phone: 06-06-2022 05:56-0400 SaO2% (BldA) [Mass fraction] 95 % [facility] Work Phone: 06-06-2022 05:56-0400 Systolic blood pressure 111 mm[Hg] [facility] Work Phone: 06-05-2022 21:07-0400 Body temperature 96.7 [degF] [facility] Work Phone: 06-05-2022 15:48-0400 Body height 154.94 cm [facility] Work Phone: 06-05-2022 15:48-0400 Body mass index (BMI) [Ratio] 34.8 kg/m2 [facility] Work Phone: 06-05-2022 15:48-0400 Body weight 83.6 kg [facility] Work Phone: 05-12-2022 02:24-0400 Body mass index (BMI) [Ratio] 36.6 kg/m2 [facility] Work Phone: 04-12-2022 07:02-0400 Body mass index (BMI) [Ratio] 36.6 kg/m2 [facility] Work Phone: 04-10-2022 06:00-0400 Body temperature 98.9 [degF] [facility] Work Phone: 04-10-2022 06:00-0400 Diastolic blood pressure 76 mm[Hg] [facility] Work Phone: 04-10-2022 06:00-0400 Heart rate 114 /min [facility] Work Phone: 04-10-2022 06:00-0400 Respiratory rate 16 /min [facility] Work Phone: 04-10-2022 06:00-0400 SaO2% (BldA) [Mass fraction] 94 % [facility] Work Phone: 04-10-2022 06:00-0400 Systolic blood pressure 116 mm[Hg] [facility] Work Phone: 04-09-2022 15:46-0400 Body height 154.94 cm [facility] Work Phone: 04-09-2022 15:46-0400 Body mass index (BMI) [Ratio] 35.6 kg/m2 [facility] Work Phone: 04-09-2022 15:46-0400 Body weight 85.7 kg [facility] Work Phone: 03-27-2022 14:06-0400 Diastolic blood pressure 82 mm[Hg] Radha Batista MANAGER REGIONAL.PBX TEACHER Work Phone: [facility] 03-27-2022 14:06-0400 Heart rate 103 /min Radha Batista MANAGER REGIONAL.PBX TEACHER Work Phone: [facility] 03-27-2022 14:06-0400 Respiratory rate 18 /min Rdaha Batista MANAGER REGIONAL.PBX TEACHER Work Phone: [facility] 03-27-2022 14:06-0400 SaO2% (BldA) [Mass fraction] 98 % Radha Hakevin MANAGER REGIONAL.PBX TEACHER Work Phone: [facility] 03-27-2022 14:06-0400 Systolic blood pressure 120 mm[Hg] Radha Haagen MANAGER REGIONAL.PBX TEACHER Work Phone: [facility] 03-12-2022 20:43-0400 Body mass index (BMI) [Ratio] 36.6 kg/m2 [facility] Work Phone: 02-10-2022 03:23-0400 Body mass index (BMI) [Ratio] 36.6 kg/m2 [facility] Work Phone: 01-30-2022 13:12-0400 Body weight 85.64 kg Radha Batista MANAGER REGIONAL.PBX TEACHER Work Phone: [facility] 01-30-2022 13:12-0400 Diastolic blood pressure 78 mm[Hg] Radha Haagen MANAGER REGIONAL.PBX TEACHER Work Phone: [facility] 01-30-2022 13:12-0400 Heart rate 106 /min Radha Haagen MANAGER REGIONAL.PBX TEACHER Work Phone: [facility] 01-30-2022 13:12-0400 Respiratory rate 16 /min Radha Haagen MANAGER REGIONAL.PBX TEACHER Work Phone: [facility] 01-30-2022 13:12-0400 Systolic blood pressure 112 mm[Hg] Radha Haagen MANAGER REGIONAL.PBX TEACHER Work Phone: [facility] 01-14-2022 15:12-0400 Body weight 84.82 kg Aleksandar Jones MD Work Phone: [facility] 01-14-2022 15:12-0400 Diastolic blood pressure 68 mm[Hg] Aleksandar Jones MD Work Phone: [facility] 01-14-2022 15:12-0400 Heart rate 118 /min Aleksandar Jones MD Work Phone: [facility] 01-14-2022 15:12-0400 SaO2% (BldA) [Mass fraction] 95 % Aleksandar Jones MD Work Phone: [facility] 01-14-2022 15:12-0400 Systolic blood pressure 102 mm[Hg] Aleksandar Jones MD Work Phone: [facility] 01-11-2022 02:25-0400 Body mass index (BMI) [Ratio] 36.6 kg/m2 [facility] Work Phone: 12-11-2021 09:41-0500 Body mass index (BMI) [Ratio] 36.6 kg/m2 [facility] Work Phone: 12-11-2021 08:41-0500 Body mass index (BMI) [Ratio] 36.6 kg/m2 [facility] Work Phone: 11-13-2021 00:10-0500 Body mass index (BMI) [Ratio] 36.6 kg/m2 [facility] Work Phone: 10-14-2021 03:14-0500 Body mass index (BMI) [Ratio] 36.6 kg/m2 [facility] Work Phone: 09-12-2021 02:21-0500 Body mass index (BMI) [Ratio] 36.6 kg/m2 [facility] [facility] Work Phone: Encounters Encounter Date Encounter Type Care Provider Facility Start: 05-11-2025 End: 05-11-2025 Telephone encounter Aleksandar Jones MD Work Phone: [facility] Comment on above: Statin Recommendatio n Start: 05-10-2025 End: 05-10-2025 Patient encounter procedure Joselyn SCHAEFFER -[facility] Work Phone: Start: 05-10-2025 End: 05-10-[address] Aleksandar Jones MD Work Phone: -[facility] Start: 05-06-2025 End: 05-06-[address] Koby Ramirez MD -Cat Scan [facility] Work Phone: Start: 05-06-2025 End: 05-06-[address] Aleksandar Jones MD Work Phone: -Cat Scan [facility] Start: 04-26-2025 ambulatory [facility] Facility:[facility] Start: 04-26-2025 Registered Referred [facility] -[facility] Work Phone: Start: 04-11-2025 ambulatory [facility] Facility:[facility] Start: 04-11-2025 Registered Referred [facility] -[facility] Work Phone: Start: 04-04-2025 End: 04-04-2025 Patient encounter procedure Fuentes Renee MD Work Phone: Cardiology Comment on above: Primary hypertension (Primary Dx); SVT (supraventricular tachycardia) (HCC) Start: 04-04-2025 End: 04-04-2025 [facility] Facility:[facility] Start: 03-29-2025 End: 04-05-2025 Follow-up encounter Aleksandar Jones MD Work Phone: [facility] Start: 03-29-2025 End: 03-29-2025 Subsequent hospital visit by physician [facility] Work Phone: Radiology Comment on above: Cough, unspecified t ype [R05.9] Start: 03-29-2025 End: 03-29-2025 [facility] Facility:[facility] Start: 03-29-2025 End: 03-29-2025 Patient encounter procedure Aleksandar Jones MD Work Phone: [facility] Comment on above: Hyponatremia (Primar y Dx); Water intoxication; Type 2 diabetes mellitus with diabetic nephropathy, with long-term current use of insulin (HCC); Leukocytosis, unspecified type; Pure hypercholesterolemia; GERD without esophagitis; Schizophreniform disorder, chronic condition (HCC); Chronic obstructive pulmonary disease, unspecified COPD type (HCC); LIDA (obstructive sleep apnea); Cough, unspecified type; Hepatitis B core antibody positive; History of CHF (congestive heart failure) Start: 03-29-2025 End: 03-29-2025 ambulatory [facility] Facility:[facility] Start: 03-28-2025 ambulatory [facility] Facility:[facility] Start: 03-28-2025 Registered Referred Aleksandar [place] -[facility] Work Phone: Start: 03-14-2025 End: 03-14-2025 Telephone encounter Aleksandar Jones MD Work Phone: Family [facility] Comment on above: Letter Start: 03-01-2025 End: 03-01-[address] Aleksandar Jones MD Work Phone: [facility] Work Phone: Start: 03-01-2025 End: 03-01-2025 Departed Referred [facility] -[facility] Work Phone: Start: 03-01-2025 End: 03-01-2025 ambulatory [facility] Start: 02-25-2025 End: 03-16-2025 Telephone encounter Aleksandar Jones MD Work Phone: [facility] [place] Comment on above: Patient Update Start: 02-18-2025 End: 02-18-2025 Refill Aleksandar Jones MD Work Phone: Family [facility] [place] Comment on above: Refill Request Start: 02-10-2025 End: 02-11-2025 Telephone encounter Aleksandar Jones MD Work Phone: Family [facility] Comment on above: Forms Start: 02-10-2025 ambulatory [facility] Facility:[facility] Start: 02-02-2025 End: 02-09-[address] Lorraine Springer MD -Laboratory Work Phone: Start: 02-02-2025 End: 02-09-2025 ambulatory [facility] Facility:[facility] Start: 01-31-2025 End: 02-08-2025 Telephone encounter Aleksandar Jones MD Work Phone: [facility] [place] Start: 01-27-2025 End: 01-28-2025 Telephone encounter Aleksandar Jones MD Work Phone: [facility] [place] Comment on above: Forms Start: 01-25-2025 End: 01-25-2025 Refill Aleksandar Jones MD Work Phone: [facility] [place] Comment on above: Refill Request Start: 01-21-2025 End: 01-24-2025 Telephone encounter Aleksandar Jones MD Work Phone: [facility] [place] Comment on above: Forms Start: 01-20-2025 End: 03-22-2025 Follow-up encounter Aleksandar Jones MD Work Phone: Pulmonology [facility] Start: 01-19-2025 End: 01-19-2025 ambulatory [facility] Facility:[facility] Start: 01-19-2025 End: 01-19-2025 Subsequent hospital visit by physician Screen Mammo [facility] Comment on above: Encounter for screen ing mammogram for breast cancer [Z12.31] Start: 01-18-2025 End: 03-20-2025 Follow-up encounter Aleksandar Jones MD Work Phone: Family [facility] Start: 01-18-2025 End: 01-18-2025 ambulatory [facility] Facility:[facility] Start: 01-18-2025 End: 01-18-2025 Subsequent hospital visit by physician Us [facility] 2 Work Phone: Radiology Comment on above: Elevated liver enzym es [R74.8] Start: 01-14-2025 End: 01-14-2025 Follow-up encounter Radha Batista APRN.CNP Work Phone: [facility] [place] Start: 01-12-2025 End: 03-14-2025 Follow-up encounter Aleksandar Jones MD Work Phone: [facility] [place] Start: 01-12-2025 End: 01-12-2025 Telephone encounter Aleksandar Jones MD Work Phone: [facility] [place] Comment on above: Orders Start: 01-12-2025 End: 01-12-2025 ambulatory RADHA BATISTA Facility:[facility] Start: 01-12-2025 End: 01-12-2025 Patient encounter procedure Aleksandar Jones MD Work Phone: [facility] Comment on above: Water intoxication ( Primary Dx); Vitamin D deficiency; Hepatitis B core antibody positive; Hyponatremia; Acute diastolic CHF (congestive heart failure) (HCC); Liver function test abnormality; Type 2 diabetes mellitus with diabetic nephropathy, with long-term current use of insulin (HCC) Start: 01-11-2025 End: 01-11-2025 ambulatory ALEKSANDAR ROBERT Facility:[facility] Start: 01-05-2025 End: 01-05-2025 Patient encounter procedure Jey Brown MD Work Phone: Respiratory [place] [facility] Start: 01-05-2025 End: 01-12-2025 Telephone encounter Aleksandar Jones MD Work Phone: [facility] Comment on above: Patient Update Start: 01-04-2025 End: 01-04-[address] Lorraine Springer MD -Laboratory Work Phone: Start: 01-04-2025 End: 01-04-[address] Aleksandar Jones MD Work Phone: [facility] Work Phone: Start: 01-04-2025 End: 01-05-2025 Follow-up encounter Radha Batista APRN.PBX TEACHER Work Phone: [facility] Start: 01-04-2025 End: 01-12-2025 Telephone encounter Aleksandar Jones MD Work Phone: [facility] Comment on above: Results Start: 01-03-2025 End: 01-06-2025 Refill Aleksandar Jones MD Work Phone: [facility] Comment on above: Refill Request Start: 12-31-2024 End: 12-31-2024 Follow-up encounter Radha Batista APRN.PBX TEACHER Work Phone: [facility] Start: 12-30-2024 End: 12-31-2024 Refill Aleksandar Jones MD Work Phone: [facility] Comment on above: Refill Request Results Start: 12-29-2024 End: 02-28-2025 Follow-up encounter Aleksandar Jones MD Work Phone: [facility] Start: 12-28-2024 End: 12-28-2024 ambulatory RADHA BATISTA Facility:[facility] Start: 12-28-2024 End: 12-28-2024 Patient encounter procedure Aleksandar Jones MD Work Phone: [facility] Comment on above: COVID (Primary Dx); Acute [...] 12-10-2024 Refill Aleksandar Jones MD Work Phone: [facility] Comment on above: Refill Request Start: 12-07-2024 End: 12-08-2024 Follow-up encounter Radha Batista APRN.CNP Work Phone: [facility] Start: 12-07-2024 End: 12-07-2024 Subsequent hospital visit by physician Xr [facility] Work Phone: Radiology Comment on above: Bacterial pneumonia [J15.9] Start: 12-07-2024 End: 12-07-2024 ambulatory RADHA BATISTA Facility:[facility] Start: 12-07-2024 End: 12-07-2024 Office outpatient visit 25 minutes Radha Batista APRN.PBX TEACHER Work Phone: [facility] Comment on above: Leg pain, bilateral (Primary Dx); Bacterial pneumonia Start: 12-03-2024 End: 02-02-2025 Follow-up encounter Radha Batista APRN.PBX TEACHER Work Phone: [facility] Start: 12-03-2024 End: 12-03-2024 Telephone encounter Radha Batista APRN.PBX TEACHER Work Phone: [facility] Comment on above: Results Start: 12-01-2024 End: 12-01-2024 ambulatory ALEKSANDAR JONES Facility:[facility] Start: 11-29-2024 End: 11-29-2024 Telephone encounter Aleksandar Jones MD Work Phone: [facility] Comment on above: Appointment Start: 11-25-2024 End: 11-25-2024 Refill Aleksandar Jones MD Work Phone: [facility] Comment on above: Refill Request Start: 2024 End: 2024 Refill Aleksandar Jones MD Work Phone: [address] [place] [address] Comment on above: Refill Request Start: 11-12-2024 Non-patient / Non-visit Dr. Neela Abdi [facility] Work Phone: Start: 11-11-2024 Non-patient / Non-visit Dr. [facility] Work Phone: Start: 11-10-2024 Non-patient / Non-visit Dr. Neela [facility] Work Phone: Start: 11-10-2024 End: 11-10-2024 Telephone encounter Aleksandar Jones MD Work Phone: Internal Medicine [place] Start: 11-09-2024 End: 11-12-2024 Evaluation and management of inpatient Dr. Ana Lilia Lebron DO -Medical Surgical 3 Work Phone: Start: 11-09-2024 End: 11-09-2024 Subsequent hospital visit by physician Xr [facility] Work Phone: Radiology Comment on above: Acute cough [R05.1] Start: 11-09-2024 End: 11-09-2024 ambulatory [facility] Facility:[facility] Start: 11-09-2024 End: 11-09-2024 Patient encounter procedure Zaira Mancilla MANAGER REGIONAL.PBX TEACHER Work Phone: [facility] Comment on above: Pneumonia of right l lisbeth due to infectious organism, unspecified part of lung (Primary Dx); Fever, unspecified fever cause; Acute cough; URI, acute Start: 11-05-2024 End: 11-09-2024 Telephone encounter Radha Batista APRN.PBX TEACHER Work Phone: [facility] [place] Comment on above: Results Start: 11-02-2024 End: 11-02-2024 Subsequent hospital visit by physician Xr [facility] Work Phone: Radiology Comment on above: Weakness of both low er extremities [R29.898] Start: 11-02-2024 End: 11-02-2024 [facility] Start: 11-02-2024 End: 11-02-2024 Office outpatient visit 25 minutes Radha Batista APRN.PBX TEACHER Work Phone: [facility] Estela Sheppard Comment on above: Weakness of both low er extremities (Primary Dx); Uncontrolled type 2 diabetes mellitus with hyperglycemia (HCC); Hyperlipidemia, unspecified hyperlipidemia type; Leg pain, bilateral Start: 11-02-2024 End: 11-02-2024 ambulatory [facility] Start: 10-29-2024 End: 10-29-2024 Refill Aleksandar Jones MD Work Phone: [facility] Comment on above: Refill Request Start: 10-14-2024 End: 10-14-2024 Emergency department patient visit Dr. Tae Holland DO -Emergency Department Work Phone: Start: 10-14-2024 End: 10-14-[address] Lorraine Springer MD -Laboratory Work Phone: Start: 10-14-2024 End: 10-14-2024 ambulatory [facility] Facility:[facility] Start: 10-04-2024 End: 10-04-2024 Refill Aleksandar Jones MD Work Phone: [facility] Comment on above: Refill Request Start: 09-28-2024 End: 09-28-2024 Office outpatient visit 25 minutes Radha Haagen MANAGER REGIONAL.PBX TEACHER Work Phone: [facility] Comment on above: Leg pain, bilateral (Primary Dx) Start: 09-28-2024 End: 09-28-2024 [facility] Start: 09-24-2024 End: 09-24-2024 Refill Aleksandar Jones MD Work Phone: [facility] Comment on above: Refill Request Start: 09-20-2024 End: 09-20-2024 [facility] Facility:[facility] Start: 09-20-2024 End: 09-20-2024 Patient encounter procedure Fuentes Renee MD Work Phone: Cardiology Comment on above: Primary hypertension (Primary Dx); Pure hypercholesterolemia; SVT (supraventricular tachycardia) (HCC); Tachycardia Start: 09-16-2024 End: 09-16-[address] Lorraine Springer MD -Laboratory Work Phone: Start: 09-16-2024 End: 09-16-2024 [facility] Facility:[facility] Start: 09-08-2024 End: 09-08-2024 Office outpatient visit 25 minutes Radha Haagen MANAGER REGIONAL.PBX TEACHER Work Phone: [facility] Comment on above: Chronic obstructive pulmonary disease, unspecified COPD type (HCC) (Primary Dx); Leg pain, bilateral; Encounter for immunization Start: 09-08-2024 End: 09-08-2024 [facility] Start: 08-31-2024 End: 08-31-2024 Refill Aleksandar Jones MD Work Phone: [facility] Comment on above: Refill Request Start: 08-25-2024 End: 09-11-[address] Lorraine Springer MD -Laboratory Work Phone: Start: 08-25-2024 End: 09-11-2024 ambulatory Lorraine Springer Facility:[facility] Start: 08-24-2024 End: 08-24-2024 ambulatory SHELIA SALMON Facility:[facility] Start: 08-24-2024 End: 08-24-2024 Office outpatient visit 15 minutes Shelia Salmon MANAGER REGIONAL.PBX TEACHER Work Phone: [facility] Comment on above: LIDA (obstructive sle ep apnea) (Primary Dx); Acute exacerbation of chronic obstructive pulmonary disease (COPD) (HCC); Tachycardia; Tinea cruris Start: 08-20-2024 End: 08-20-2024 Refill Aleksandar Jones MD Work Phone: [facility] Comment on above: Refill Request Start: 08-18-2024 End: 08-18-2024 Telephone encounter Aleksandar Jones MD Work Phone: [facility] Comment on above: Medication Problem Start: 08-16-2024 End: 08-16-2024 Telephone encounter Aleksandar Jones MD Work Phone: [facility] Comment on above: Medication Request ( Cough drops) Start: 08-06-2024 End: 08-06-2024 Refill Aleksandar Jones MD Work Phone: [facility] Comment on above: Refill Request Start: 07-31-2024 End: 07-31-2024 ambulatory Barbara Dickens RN NURSE HOME COORDINATOR Comment on above: Information Start: 07-31-2024 End: 07-31-2024 Patient encounter procedure Malcolm Abreu RN NURSE ON JAZLYN L Comment on above: Clinical Update Start: 07-31-2024 End: 07-31-2024 Telephone encounter Aleksandar Jones MD Work Phone: [facility] Comment on above: took another group h ome patient s medications Start: 07-29-2024 End: 07-29-2024 Refill Aleksandar Jones MD Work Phone: [facility] Comment on above: Refill Request Start: 07-23-2024 End: 07-23-2024 ambulatory ALEKSANDAR JONES Facility:[facility] Start: 07-23-2024 End: 07-23-2024 Office outpatient visit 15 minutes Adriano Menezes MANAGER REGIONAL.PBX TEACHER Work Phone: [facility] Comment on above: Pain of right eye (P rimary Dx) Start: 07-22-2024 End: 07-22-2024 Telephone encounter Aleksandar Jones MD Work Phone: [facility] Comment on above: Patient Question Start: 07-21-2024 End: 07-21-2024 ambulatory [facility] Facility:[facility] Start: 07-14-2024 End: 07-14-2024 Telephone encounter Aleksandar Jones MD Work Phone: [facility] Comment on above: Medication issue Start: 07-09-2024 End: 07-09-2024 Refill Aleksandar Jones MD Work Phone: [facility] Comment on above: Refill Request Start: 07-06-2024 End: 07-06-2024 Office outpatient visit 25 minutes Radha Batista MANAGER REGIONAL.PBX TEACHER Work Phone: [facility] Comment on above: Uncontrolled type 2 diabetes mellitus with hyperglycemia (HCC) (Primary Dx); Encounter for immunization; Fatigue, unspecified type; Type 2 diabetes mellitus with diabetic nephropathy, with long-term current use of insulin (HCC); Chronic obstructive pulmonary disease, unspecified COPD type (HCC); Schizophreniform disorder, chronic condition (HCC); Primary hypertension; Vitamin D deficiency; Pure hypercholesterolemia Start: 07-06-2024 End: 07-06-2024 ambulatory [facility] Facility:[facility] Start: 06-23-2024 End: 06-28-2024 ambulatory Aleksandar Jones MD Work Phone: Internal Medicine [facility] Start: 06-17-2024 End: 06-17-2024 Refill Aleksandar Jones MD Work Phone: [facility] Comment on above: Refill Request Start: 06-11-2024 End: 06-16-2024 Refill Fuentes Renee MD Work Phone: Cardiology Comment on above: Refill Request Start: 06-09-2024 End: 06-09-2024 Refill Aleksandar Jones MD Work Phone: [facility] Comment on above: Refill Request Start: 06-03-2024 End: 06-03-2024 ambulatory [facility] Facility:[facility] Start: 05-19-2024 Telephone encounter Aleksandar Jones MD Work Phone: [facility] Comment on above: Patient Question Start: 05-18-2024 Refill Aleksandar Jones MD Work Phone: [facility] Comment on above: Refill Request Start: 05-03-2024 Refill Aleksandar Jones MD Work Phone: [facility] Comment on above: Refill Request Medication Problem Start: 04-16-2024 Refill Aleksandar Jones MD Work Phone: [facility] Comment on above: Refill Request Start: 04-14-2024 End: 04-14-2024 Office outpatient visit 25 minutes Radha Batista APRN.PBX TEACHER Work Phone: [facility] Comment on above: Folliculitis (Primar y Dx); Fatigue, unspecified type Start: 04-01-2024 End: 04-01-2024 ambulatory Long Golias PT Work Phone: [facility] Comment on above: Weakness of both low er extremities (Primary Dx) Start: 03-30-2024 End: 03-30-2024 ambulatory Long Golias PT Work Phone: [facility] Comment on above: Weakness of both low er extremities (Primary Dx) Start: 03-30-2024 End: 03-30-2024 Office outpatient visit 15 minutes Radha Batista APRN.PBX TEACHER Work Phone: [facility] Comment on above: Uncontrolled type 2 diabetes mellitus with hyperglycemia (HCC) (Primary Dx) Start: 03-25-2024 End: 03-25-2024 ambulatory Jaci Kashuba CONCESSION SUPERVISOR Work Phone: [facility] Comment on above: Weakness of both low er extremities (Primary Dx) Start: 03-23-2024 End: 03-23-2024 ambulatory Long Golias PT Work Phone: [facility] Comment on above: Weakness of both low er extremities (Primary Dx) Start: 03-19-2024 Refill Aleksandar Jones MD Work Phone: [facility] Comment on above: Refill Request Start: 03-19-2024 End: 03-19-2024 Office outpatient visit 25 minutes Radha Batista APRN.PBX TEACHER Work Phone: [facility] Comment on above: Uncontrolled type 2 diabetes mellitus with hyperglycemia (HCC) (Primary Dx); Thrombocytopenia (HCC); Elevated liver enzymes Start: 03-18-2024 Telephone encounter Aleksandar Jones MD Work Phone: Pulmonology [facility] Comment on above: Patient Update Start: 03-18-2024 End: 03-18-2024 ambulatory Jaci Ericksonba CONCESSION SUPERVISOR Work Phone: [facility] Comment on above: Weakness of both low er extremities (Primary Dx); Leg weakness, bilateral Start: 03-16-2024 End: 03-16-2024 ambulatory Long Golias PT Work Phone: [facility] Comment on above: Weakness of both low er extremities (Primary Dx) Start: 03-12-2024 Telephone encounter Rolf Herrera DO Work Phone: Internal Medicine [place] Comment on above: Patient Update (Call from nurse on-call last evening on March 11 regarding hyperglycemia) Start: 03-05-2024 Telephone encounter Radha brown APRN.PBX TEACHER Work Phone: [facility] Comment on above: Results Start: 03-04-2024 End: 03-04-2024 ambulatory Jaci Bhargavhuba CONCESSION SUPERVISOR Work Phone: [facility] Comment on above: Weakness of both low er extremities (Primary Dx) Start: 03-02-2024 End: 03-02-2024 ambulatory Long Golias PT Work Phone: [facility] Comment on above: Leg weakness, bilate ral (Primary Dx); Weakness of both lower extremities Start: 03-02-2024 End: 03-02-2024 Office outpatient visit 25 minutes Radha Batista APRN.PBX TEACHER Work Phone: [facility] Comment on above: Fatigue, unspecified type (Primary Dx); Pain in both lower extremities; Type 2 diabetes mellitus with diabetic nephropathy, with long-term current use of insulin (HCC) Start: 02-26-2024 End: 02-26-2024 ambulatory Long Golias PT Work Phone: [facility] Comment on above: Leg weakness, bilate ral (Primary Dx) Start: 02-24-2024 End: 02-24-2024 ambulatory Jaci Bhargavhuba CONCESSION SUPERVISOR Work Phone: [facility] Comment on above: Leg weakness, bilate ral (Primary Dx) Refill Request Start: 02-19-2024 End: 02-19-2024 ambulatory Long Golias PT Work Phone: [facility] Comment on above: Leg weakness, bilate ral (Primary Dx) Start: 02-17-2024 End: 02-17-2024 ambulatory Jaci Kashuba CONCESSION SUPERVISOR Work Phone: [facility] Comment on above: Leg weakness, bilate ral (Primary Dx) Start: 02-12-2024 End: 02-12-2024 ambulatory Jaci Kashuba CONCESSION SUPERVISOR Work Phone: [facility] Comment on above: Leg weakness, bilate ral (Primary Dx) Start: 02-10-2024 End: 02-10-2024 ambulatory Long Golias PT Work Phone: [facility] Comment on above: Leg weakness, bilate ral (Primary Dx) Start: 02-05-2024 End: 02-05-2024 ambulatory Jaci Brady CONCESSION SUPERVISOR Work Phone: [facility] Comment on above: Leg weakness, bilate ral (Primary Dx) Start: 02-04-2024 Telephone encounter Aleksandar Jones MD Work Phone: [facility] Comment on above: Insurance Authorizat ion ([employer] ) Start: 02-03-2024 End: 02-10-2024 Discharged Recurring [facility]-Laboratory Work Phone: Start: 02-03-2024 End: 02-10-2024 ambulatory Long Golias PT Work Phone: [facility] Comment on above: Leg weakness, bilate ral (Primary Dx) Start: 01-29-2024 Refill Aleksandar Jones MD Work Phone: [facility] Comment on above: Refill Request Start: 01-21-2024 End: 01-21-2024 ambulatory Long Golias PT Work Phone: [facility] Comment on above: Leg weakness, bilate ral Start: 01-13-2024 End: 01-13-2024 Office outpatient visit 25 minutes Radha Batista APRN.CNP Work Phone: [facility] Comment on above: Acute constipation ( Primary Dx); Nasal dryness; Pain in both lower extremities; Leg weakness, bilateral; Sedative, hypnotic or anxiolytic dependence, uncomplicated ([facility]); Acute respiratory failure with hypoxia ([facility]); Chronic obstructive pulmonary disease, unspecified COPD type ([facility]); SVT (supraventricular tachycardia) ([facility]) Start: 01-07-2024 End: 01-10-2024 ambulatory [facility] Work Phone: Start: 01-07-2024 End: 01-10-2024 Discharged Recurring [facility] Work Phone: Start: 12-13-2023 End: 12-14-2023 Emergency department patient visit Dr. Aleksandar Jones Work Phone: [facility]Emergency Department Work Phone: Start: 12-02-2023 Refill Aleksandar Jones MD Work Phone: [facility] Comment on above: Refill Request Start: 11-20-2023 Telephone encounter Meredith Carroll nhof MANAGER REGIONAL.PBX TEACHER Work Phone: [facility] Comment on above: Results (Labs ) Start: 11-19-2023 End: 12-11-[address] Aleksandar Jones Work Phone: [facility] Work Phone: Start: 11-19-2023 End: 12-11-[address] Aleksandar Jones Work Phone: [facility] Work Phone: Start: 10-24-2023 End: 10-24-[address] Aleksandar Jones Work Phone: [facility] Work Phone: Start: 10-24-2023 End: 10-24-[address] Aleksandar Jones Work Phone: [facility]Radiology, [facility] Work Phone: Start: 10-22-2023 End: 10-22-[address] Aleksandar Jones Work Phone: [facility] Work Phone: Start: 10-22-2023 End: 10-22-[address] Aleksandar Jones Work Phone: [facility] Work Phone: Start: 10-22-[address] Andrew Jones Work Phone: [facility] Work Phone: Start: 09-22-2023 End: 09-22-2023 Patient encounter procedure Fuentes Renee MD Work Phone: Cardiology Comment on above: Primary hypertension (Primary Dx); Pure hypercholesterolemia; SVT (supraventricular tachycardia) Start: 09-17-2023 End: 10-12-[address] Aleksandar Jones Work Phone: [facility] Work Phone: Start: 09-10-2023 Refill Aleksandar Jones MD Work Phone: [facility] Comment on above: Refill Request Start: 09-09-2023 Telephone encounter Aleksandar Jones MD Work Phone: [facility] Comment on above: Medication Problem ( Test strips and lancets) Start: 08-31-2023 Telephone encounter Alma brown MANAGER REGIONAL.PBX TEACHER Work Phone: [facility] Comment on above: Results Start: 08-29-2023 End: 08-29-2023 Patient encounter procedure Alma Ac APRN.PBX TEACHER Work Phone: OB/Gynecology Comment on above: Itching in the vagin al area (Primary Dx) Start: 08-28-2023 Refill Aleksandar Jones MD Work Phone: [facility] Comment on above: Refill Request Start: 08-20-2023 Telephone encounter Aleksandar Jones MD Work Phone: [facility] Comment on above: Refill Request; Medi cation Problem Start: 08-19-2023 Telephone encounter Aleksandar Jones MD Work Phone: [facility] Comment on above: Elevated Blood Sugar Start: 08-19-2023 End: 09-11-[address] Aleksandar Jones Work Phone: [facility] Work Phone: Start: 08-19-2023 End: 09-11-[address] Aleksandar Jones Work Phone: [facility] Work Phone: Start: 08-16-2023 Non-patient / Non-visit Dr. Julio Cesar Jones Work Phone: [facility] Work Phone: Start: 08-15-2023 Non-patient / Non-visit Dr. Julio Cesar Jones Work Phone: [facility] Work Phone: Start: 08-14-2023 Non-patient / Non-visit Dr. Julio Cesar Jones Work Phone: [facility] Work Phone: Start: 08-14-2023 End: 08-16-2023 Evaluation and management of inpatient Dr. Aleksandar Jones Work Phone: [facility]Progressive Care Unit Work Phone: Start: 08-12-2023 Refill Aleksandar Jones MD Work Phone: [facility] Comment on above: Refill Request Start: 07-17-2023 End: 07-17-[address] [facility]ksand[facility] Start: 07-16-2023 ambulatory Aleksandar Jones MD Work Phone: Internal Medicine [facility] Start: 07-15-2023 Refill Fuentes Renee MD Work Phone: Cardiology Comment on above: Refill Request Start: 06-18-2023 End: 06-18-2023 Refill Aleksandar Jones MD Work Phone: [facility] Comment on above: Refill Request Start: 06-18-2023 End: 06-18-2023 Discharged Recurring [facility] Work Phone: Start: 05-27-2023 Refill Aleksandar Jones MD Work Phone: [facility] Comment on above: Refill Request Start: 05-26-2023 Telephone encounter Radha brown APRN.CNP Work Phone: [facility] Comment on above: Results Start: 05-26-2023 End: 05-26-2023 Nursing evaluation of patient and report Nurse Card Admin [facility] Work Phone: Cardiology Comment on above: Tachycardia (Primary Dx) Start: 05-26-2023 End: 05-26-2023 Subsequent hospital visit by physician Pernell Dietrich [facility] Work Phone: Nuclear Medicine Comment on above: Chest pain, unspecif ied type [R07.9] Start: 05-23-2023 Refill Aleksandar Jones MD Work Phone: [facility] Comment on above: Refill Request Start: 05-20-2023 End: 05-20-2023 ambulatory [facility] Work Phone: Start: 05-20-2023 End: 05-20-2023 Discharged Recurring [facility] Work Phone: Start: 05-08-2023 Telephone encounter Aleksandar Jones MD Work Phone: [facility] Comment on above: Results Start: 05-05-2023 End: 05-12-2023 ambulatory [facility] Work Phone: Start: 05-05-2023 End: 05-12-2023 Discharged Recurring [facility] Work Phone: Start: 04-30-2023 End: 04-30-2023 ambulatory [facility] Work Phone: Start: 04-30-2023 End: 04-30-2023 Patient encounter procedure [facility]Cat Scan, [facility] Work Phone: Start: 04-29-2023 End: 04-29-2023 Office outpatient visit 40 minutes Radha Batista APRN.CNP Work Phone: [facility] Comment on above: Chest pain, unspecif ied type (Primary Dx); Weight loss; Type 2 diabetes mellitus with diabetic nephropathy, with long-term current use of insulin ([facility]); Hyperlipidemia, unspecified hyperlipidemia type; GERD without esophagitis; Acute diastolic CHF (congestive heart failure) ([facility]); Schizophreniform disorder, chronic condition (HCC); Fatigue, unspecified type Start: 03-17-2023 End: 03-17-2023 ambulatory [facility] Work Phone: Start: 03-17-2023 End: 03-17-2023 Discharged Recurring [facility] Work Phone: Start: 02-26-2023 Refill Radha Batista APRN.CNP Work Phone: [facility] Comment on above: Refill Request Start: 02-17-2023 End: 03-12-2023 ambulatory [facility] Work Phone: Start: 02-17-2023 End: 03-12-2023 Discharged Recurring [facility] Start: 02-14-2023 Refill Aleksandar Jones MD Work Phone: [facility] Comment on above: Refill Request Start: 01-30-2023 Refill Aleksandar Jones MD Work Phone: [facility] Comment on above: Refill Request Start: 01-15-2023 End: 02-09-2023 ambulatory [facility] Work Phone: Start: 01-15-2023 End: 02-09-2023 Discharged Recurring [facility] Start: 12-16-2022 End: 01-10-2023 ambulatory [facility] Work Phone: Start: 12-16-2022 End: 01-10-2023 Discharged Recurring [facility] Start: 12-09-2022 Refill Aleksandar Jones MD Work Phone: [facility] Comment on above: Refill Request Start: 11-19-2022 End: 11-19-2022 ambulatory [facility] Work Phone: Start: 11-19-2022 End: 11-19-2022 Discharged Recurring [facility] Start: 10-17-2022 End: 10-17-2022 ambulatory [facility] Work Phone: Start: 10-17-2022 End: 10-17-2022 [facility] Start: 10-08-2022 Refill Aleksandar Jones MD Work Phone: [facility] Comment on above: Refill Request Start: 10-04-2022 Refill Aleksandar Jones MD Work Phone: [facility] Comment on above: Refill Request Start: 09-19-2022 End: 09-19-2022 ambulatory [facility] Work Phone: Start: 09-19-2022 End: 09-19-2022 [facility] Start: 09-11-2022 Refill Aleksandar Jones MD Work Phone: [facility] Comment on above: Refill Request Start: 08-30-2022 Refill Aleksandar Jones MD Work Phone: [facility] Comment on above: Refill Request Start: 08-28-2022 End: 08-28-2022 Office outpatient visit 25 minutes Radha Batista APRN.PBX TEACHER Work Phone: [facility] Comment on above: Type 2 diabetes mendel itus with diabetic nephropathy, with long- term current use of insulin (HCC) (Primary Dx); Schizophreniform disorder, chronic condition (HCC); Hyperlipidemia, unspecified hyperlipidemia type; LIDA (obstructive sleep apnea); Rosacea; Upper back pain; Gassiness Start: 08-19-2022 Refill Aleksandar Jones MD Work Phone: [facility] Comment on above: Refill Request Start: 08-15-2022 End: 09-11-2022 Refill Aleksandar Jones MD Work Phone: [facility] Comment on above: Refill Request Start: 08-15-2022 End: 09-11-2022 Discharged Recurring [facility] Start: 08-13-2022 Refill Fuentes Renee MD Work Phone: Cardiology Comment on above: Refill Request Start: 08-08-2022 End: 08-08-2022 Patient encounter procedure Zaira Mancilla APRN.PBX TEACHER Work Phone: [facility] Comment on above: Conjunctivitis of le ft eye, unspecified conjunctivitis type (Primary Dx); Facial infection Start: 08-07-2022 ambulatory Aleksandar Jones MD Work Phone: Internal [facility] Start: 07-23-2022 End: 07-23-2022 Discharged Recurring [facility] Start: 07-05-2022 End: 07-05-2022 Patient encounter procedure Zaira Mancilla MANAGER REGIONAL.PBX TEACHER Work Phone: [facility] Comment on above: Injury of toenail of right foot, initial encounter (Primary Dx) Start: 06-20-2022 Refill Aleksandar Jones MD Work Phone: [facility] Comment on above: Refill Request Start: 06-19-2022 End: 06-19-2022 ambulatory [facility] Work Phone: Start: 06-19-2022 End: 06-19-2022 Discharged Recurring [facility] Start: 06-05-2022 End: 06-06-2022 Emergency department patient visit [facility] Start: 05-17-2022 End: 05-17-2022 ambulatory [facility] Work Phone: Start: 05-17-2022 End: 05-17-2022 Discharged Recurring [facility] Start: 05-17-2022 [facility] Start: 05-08-2022 Refill Aleksandar Jones MD Work Phone: [facility] Comment on above: Refill Request Start: 05-07-2022 Telephone encounter Aleksandar Jones MD Work Phone: [facility] Comment on above: Patient Question Start: 05-02-2022 Refill Aleksandar Jones MD Work Phone: [facility] Comment on above: Refill Request Start: 04-18-2022 End: 04-18-2022 Patient encounter procedure [facility] Scan, [facility] Start: 04-17-2022 End: 05-12-2022 [facility] Start[facility] 04-17-2022 [facility] Start: 04-09-2022 End: 04-10-2022 Emergency department patient visit [facility] Start: 03-27-2022 End: 03-27-2022 Office outpatient visit 15 minutes Radha Batista APRN.PBX TEACHER Work Phone: [facility] Comment on above: Skin irritation (Moraima malcolm Dx); Rosacea Start: 03-27-2022 Refill Aleksandar Jones MD Work Phone: [facility] Comment on above: Refill Request Start: 03-20-2022 End: 03-20-2022 [facility] Start: 03-20-2022 [facility] Start: 02-13-2022 End: 02-13-2022 [facility] Start: 01-30-2022 End: 01-30-2022 Patient encounter procedure Radha Batista APRN.PBX TEACHER Work Phone: [facility] Comment on above: Right hip pain (Prim robin Dx) Start: 01-29-2022 Telephone encounter Aleksandar Jones MD Work Phone: [facility] Comment on above: Medication Request Start: 01-14-2022 End: 01-14-2022 Refill Aleksandar Jones MD Work Phone: [facility] Comment on above: Refill Request Tachycardia (Primary Dx); SVT (supraventricular tachycardia) ([facility]); Acute diastolic CHF (congestive heart failure) ([facility]); Chronic obstructive pulmonary disease, unspecified COPD type ([facility]); LIDA (obstructive sleep apnea); Water intoxication; Type 2 diabetes mellitus with diabetic nephropathy, with long-term current use of insulin ([facility]); Schizophreniform disorder, chronic condition ([facility]); Vitamin D deficiency; Advance care planning Start: 01-14-2022 End: 01-14-2022 [facility] Start: 01-11-2022 Refill Aleksandar Jones MD Work Phone: [facility] Comment on above: Refill Request Start: 12-13-2021 End: 01-10-2022 Discharged Recurring [facility] Start: 11-20-2021 End: 11-20-2021 Discharged Recurring [facility] Start: 10-16-2021 End: 11-12-2021 Discharged Recurring [facility] Start: 09-24-2021 End: 10-13-2021 Discharged Recurring [facility] Start: 07-19-2021 End: 07-19-2021 Subsequent hospital visit by physician Xr [facility] Work Phone: Radiology Comment on above: Behavioral change [R 46.89] Start: 10-18-2020 End: 10-18-2020 Subsequent hospital visit by physician Xr [facility] Work Phone: Radiology Comment on above: SOB (shortness of eat) [R06.02] Start: 06-08-2018 [facility] Facility :[facility] Start: 11-27-2017 End: 11-27-2017 Ambulatory [facility] Facility:[facility] Start: 08-29-2009 End: 11-26-2011 Patient encounter status Long Davis PT Work Phone: [facility] Work Phone: Procedures Date Procedure Procedure Detail Performing Clinician Start: 05-06-[address] Viki Jones MD Work Phone: Start: 03-29-2025 Radiologic exam ches t 2 views Aleksandar Jones MD Work Phone: Start: 03-28-[address] Andrew Jones MD Work Phone: Start: 03-28-2025 Urnls dip stick/tabl et reagent auto microscopy Dr. Aleksandar Jones MD Work Phone: Start: 03-28-2025 Lymphocyte percent differential count Dr. Aleksandar Jones MD Work Phone: Start: 02-02-[address] Aleksandar Jones MD Work Phone: Start: 01-18-2025 Us abdominal real ti me w/image limited Aleksandar Jones MD Work Phone: Start: 12-21-[address] Andrew Jones MD Work Phone: Start: 12-21-2024 SARS-CoV-2, Influenz a & RSV (PCR) Dr. Aleksandar Jones MD Work Phone: Start: 12-21-[address] Andrew Jones MD Work Phone: Start: 12-21-[address] Aleksandar Jones MD Work Phone: Start: 12-21-2024 Urnls dip stick/tabl et reagent auto microscopy Dr. Aleksandar Jones MD Work Phone: Start: 12-21-2024 X-ray of chest, PA a nd lateral views Dr. Aleksandar Jones MD Work Phone: Start: 12-07-2024 Radiologic exam ches t 2 views Radha Batista MANAGER REGIONAL.PBX TEACHER Work Phone: Start: 11-12-2024 Plain chest X-ray [...] exam ches t 2 views Zaira Mancilla MANAGER REGIONAL.PBX TEACHER Work Phone: Start: 11-09-2024 INFLUENZA A&B MOLECU LAR (POC) [facility] Provider Start: 11-09-[address] Andrew Jones MD Work Phone: Start: 11-09-2024 SARS-CoV-2, Influenz a & RSV (PCR) Dr. Aleksandar Jones MD Work Phone: Start: 11-02-2024 Radex spine lumbosac ral 2/3 views Radha Batista MANAGER REGIONAL.PBX TEACHER Work Phone: Start: 10-14-2024 Plain chest X-ray Dr. Melanie Jones MD Work Phone: Start: 10-14-2024 SARS-CoV-2, Influenz a & RSV (PCR) Dr. Aleksandar Jones MD Work Phone: Start: 09-20-2024 Ecg routine ecg w/le ast 12 lds i&r only Fuentes Renee MD Work Phone: Start: 07-06-2024 [employer]. COVI D-19 VACCINE AGE 12+ YR Radha Batista MANAGER REGIONAL.PBX TEACHER Work Phone: Start: 12-13-2023 Computed tomography of [...] Myocardial spect mul tiple studies Radha Batista MANAGER REGIONAL.PBX TEACHER Work Phone: Start: 04-30-2023 CT of chest Start: 04-18-2022 CT of chest Start: 01-14-2022 Adult depression scr eening assessment Aleksandar Jones MD Work Phone: Start: 07-19-2021 Radiologic exam ches t 2 views Aleksandar Jones MD Work Phone: Start: 06-27-2021 Mammography Aleksandar Anaya MD Work Phone: Start: 10-18-2020 Radiologic exam ches t 2 views Maria L Cedeno PBX TEACHER Work Phone: Start: 08-05-2019 Adult depression scr eening assessment Aleksandar Jones MD Work Phone: Start: 12-19-2016 Colonoscopy Aleksandar Anaya MD Work Phone: Viral antigen assay Plan of Treatment Date Care Activity Detail Author Start: 07-18-2028 Urine microalbumin profile DTaP,Tdap,Td Vaccine (3 - Td or Tdap) [facility] Start: 12-19-2026 Colonoscopy COLONOSCOPY [facility] Start: 12-19-2026 COLORECTAL CANCER SCREENING COLORECTAL CANCER SCREENING [facility] Start: 12-19-2026 Screening for malignant neoplasm of colon [facility] Start: 05-06-2026 Screening for malignant neoplasm of lung Lung Cancer Screening [facility] Start: 04-03-2026 End: 04-03-2026 Patient encounter procedure 04/03/2026 1:20 PM EDT Office Visit Cardiology [address] [place] [address] Fuentes Renee MD [address] [facility], [address] [place] [address] 1 year follow up Cardiology Comment on above: 1 year follow up Start: 03-29-2026 Annual PCP Team Chronic Disease Visit Annual PCP Team Chronic Disease Visit [facility] Start: 01-24-2026 HPV TESTING HPV TESTING [facility] Start: 01-24-2026 PAP TESTING PAP TESTING [facility] Start: 01-24-2026 Screening for malignant neoplasm of cervix [facility] Start: 01-19-2026 Screening for malignant neoplasm of breast Mammogram Screening [facility] Start: 01-12-2026 Annual PCP Team Chronic Disease Visit Annual PCP Team Chronic Disease Visit [facility] Start: 01-12-2026 BP Controlled (<130/80) BP Controlled (<130/80) [facility] Start: 12-28-2025 Annual PCP Team Chronic Disease Visit Annual PCP Team Chronic Disease Visit [facility] Start: 12-28-2025 BP Controlled (<130/80) BP Controlled (<130/80) [facility] Start: 12-28-2025 HIV screening HIV Screening [facility] Comment on above: Postponed from 1981 (Declined at t his time) Start: 12-07-2025 Annual PCP Team Chronic Disease Visit Annual PCP Team Chronic Disease Visit [facility] Start: 12-07-2025 BP Controlled (<130/80) BP Controlled (<130/80) [facility] Start: 11-02-2025 Annual PCP Team Chronic Disease Visit Annual PCP Team Chronic Disease Visit [facility] Start: 11-02-2025 BP Controlled (<130/80) BP Controlled (<130/80) [facility] Start: 11-02-2025 Diabetic foot examination Diabetic Foot Exam [facility] Start: 11-02-2025 Hepatitis B surface antibody level LDL Cholesterol [facility] Start: 09-28-2025 Annual PCP Team Chronic Disease Visit Annual PCP Team Chronic Disease Visit [facility] Start: 09-28-2025 Hemoglobin A1c measurement HbA1C [facility] Start: 09-20-2025 BP Controlled (<130/80) BP Controlled (<130/80) [facility] Start: 09-08-2025 Annual PCP Team Chronic Disease Visit Annual PCP Team Chronic Disease Visit [facility] Start: 09-08-2025 BP Controlled (<130/80) BP Controlled (<130/80) [facility] Start: 07-23-2025 BP Controlled (<130/80) BP Controlled (<130/80) [facility] Start: 07-20-2025 End: 07-20-2025 Patient encounter procedure 07/20/2025 1:40 PM EDT Office Visit Family Estela Sheppard [address] [place] [address] Aleksandar Jones MD [address] [place] [id number] 6 month follow up Family Estela Sheppard Comment on above: 6 month follow up Start: 07-06-2025 Annual PCP Team Chronic Disease Visit Annual PCP Team Chronic Disease Visit [facility] Start: 06-28-2025 End: 06-28-2025 Patient encounter procedure 06/28/2025 2:00 PM EDT Office Visit Family Estela Sheppard [address] [place] [address] Aleksandar Jones MD [address] [place] [address] 6 month follow up Family Estela Sheppard Comment on above: 6 month follow up Start: 06-13-2025 Influenza [facility] Start: 05-04-2025 Screening for malignant neoplasm of lung Lung Cancer Screening [facility] Start: 05-02-2025 Hemoglobin A1c measurement HbA1C [facility] Start: 04-14-2025 Annual PCP Team Chronic Disease Visit Annual PCP Team Chronic Disease Visit [facility] Start: 04-14-2025 BP Controlled (<130/80) BP Controlled (<130/80) [facility] Start: 04-04-2025 End: 04-04-2025 Patient encounter procedure Cardiology Comment on above: 6 month check Start: 03-30-2025 Annual PCP Team Chronic Disease Visit Annual PCP Team Chronic Disease Visit [facility] Start: 03-30-2025 BP Controlled (<130/80) BP Controlled (<130/80) [facility] Start: 03-29-2025 End: 03-29-2025 Patient encounter procedure 03/29/2025 9:00 AM EDT Office Visit Family Estela Sheppard [address] [place] [address] Aleksandar Jones MD [address] [place] [address] 2 month follow up Family Estela Sheppard Comment on above: 2 month follow up Start: 03-19-2025 Annual PCP Team Chronic Disease Visit Annual PCP Team Chronic Disease Visit [facility] Start: 03-18-2025 End: 03-18-2025 Patient encounter procedure 03/18/2025 8:40 AM EDT Office Visit Family Estela Sheppard [address] [place] [address] Radha Batista APRN.PBX TEACHER [address] [place] [address] 2 month follow up Family Estela Sheppard Comment on above: 2 month follow up Start: 03-14-2025 End: 03-14-2025 Patient encounter procedure 03/14/2025 9:00 AM EDT Office Visit Family Estela [place] [address] [place] [address] Aleksandar Jones MD [address] [place] [address] 2 month follow up Family Estela [place] Comment on above: 2 month follow up Start: 03-02-2025 Annual PCP Team Chronic Disease Visit Annual PCP Team Chronic Disease Visit [facility] Start: 03-02-2025 BP Controlled (<130/80) BP Controlled (<130/80) [facility] Start: 02-11-2025 End: 05-13-2025 Hepatitis B virus core Ab [Presence] in Serum HEPATITIS B CORE ANTIBODY TOTAL Lab Routine Hepatitis B core antibody positive Expected: 02/11/2025, Expires: 05/13/2025 [facility] Comment on above: Expected: 02/11/2025, Expires: Start: 02-11-2025 End: 05-13-2025 Hepatitis B virus core IgM Ab [Presence] in Serum HEPATITIS B CORE ANTIBODY IGM Lab Routine Hepatitis B core antibody positive Expected: 02/11/2025, Expires: 05/13/2025 [facility] Comment on above: Expected: 02/11/2025, Expires: Start: 02-11-2025 End: 05-13-2025 Hepatitis B virus DNA [Units/volume] in Serum HEPATITIS B VIRUS (HBV) DNA, QUANTITATIVE PCR, PLASMA/SERUM Lab Routine Hepatitis B core antibody positive Expected: 02/11/2025, Expires: 05/13/2025 [facility] Work Phone: Comment on above: Expected: 02/11/2025, Expires: Start: 02-11-2025 End: 05-13-2025 Hepatitis B virus surface Ab [Presence] in Serum HEPATITIS B SURFACE ANTIBODY Lab Routine Hepatitis B core antibody positive Expected: 02/11/2025, Expires: 05/13/2025 [facility] Comment on above: Expected: 02/11/2025, Expires: Start: 02-11-2025 End: 05-13-2025 Hepatitis B virus surface Ag [Presence] in Serum HEPATITIS B SURFACE ANTIGEN Lab Routine Hepatitis B core antibody positive Expected: 02/11/2025, Expires: 05/13/2025 [facility] Comment on above: Expected: 02/11/2025, Expires: Start: 02-04-2025 BP Controlled (<130/80) BP Controlled (<130/80) [facility] Start: 01-20-2025 BP Controlled (<130/80) BP Controlled (<130/80) [facility] Start: 01-19-2025 End: 01-19-2025 Patient encounter procedure 01/19/2025 2:20 PM EDT Appointment Mammogram [address] [place] [address] Encounter for screening mammogram for breast cancer [Z12.31] Mammogram Comment on above: Encounter for screening mammogram for br east cancer [Z12.31] Start: 01-18-2025 End: 02-03-2026 US Abdomen RUQ US ABD RIGHT UPPER QUADRANT Radiology Routine Elevated liver enzymes Expected: 01/18/2025, Expires: 02/03/2026 [facility] Work Phone: Comment on above: Expected: 01/18/2025, Expires: Start: 01-18-2025 End: 01-18-2025 Patient encounter procedure 01/18/2025 10:00 AM EDT Appointment Radiology [address] [place] [id number] Elevated liver enzymes [R74.8] Radiology Comment on above: Elevated liver enzymes [R74.8] Start: 01-14-2025 End: 04-15-2025 Comprehensive metabolic 2000 panel - Serum or Plasma COMPREHENSIVE METABOLIC PANEL Lab Routine Liver function test abnormality Hyponatremia Expected: 01/14/2025, Expires: 04/15/2025 [facility] Work Phone: Comment on above: Expected: 01/14/2025, Expires: Start: 01-12-2025 Annual PCP Team Chronic Disease Visit Annual PCP Team Chronic Disease Visit [facility] Start: 01-12-2025 End: 04-13-2025 Comprehensive metabolic 2000 panel - Serum or Plasma COMPREHENSIVE METABOLIC PANEL Lab Routine Liver function test abnormality Acute diastolic CHF (congestive heart failure) (HCC) Expected: 01/12/2025, Expires: 04/13/2025 [facility] Work Phone: Comment on above: Expected: 01/12/2025, Expires: Start: 01-12-2025 End: 01-12-2025 Patient encounter procedure 01/12/2025 10:00 AM EDT Office Visit [facility] [address] [place], [place] [id number] Aleksandar Jones MD [address] [place], [place] [id number] follow up low sodium [facility] Comment on above: follow up low sodium Start: 01-07-2025 End: 01-07-2025 Patient encounter procedure 01/07/2025 1:30 PM EDT Appointment Mammogram [address] [place], [place] [id number] Encounter for screening mammogram for breast cancer [Z12.31] Mammogram Comment on above: Encounter for screening mammogram for br east cancer [Z12.31] Start: 01-04-2025 End: 04-05-2025 Basic metabolic 2000 panel - Serum or Plasma BASIC METABOLIC PANEL Lab Routine Hyponatremia Expected: 01/04/2025, Expires: 04/05/2025 [facility] Work Phone: Comment on above: Expected: 01/04/2025, Expires: Start: 01-04-2025 End: 04-05-2025 Osmolality of Urine OSMOLALITY URINE Lab Routine Hyponatremia Expected: 01/04/2025, Expires: 04/05/2025 [facility] Comment on above: Expected: 01/04/2025, Expires: Start: 01-04-2025 End: 04-05-2025 Sodium [Moles/volume] in Urine collected for unspecified duration SODIUM RANDOM URINE Lab Routine Hyponatremia Expected: 01/04/2025, Expires: 04/05/2025 [facility] Comment on above: Expected: 01/04/2025, Expires: Start: 12-31-2024 End: 04-01-2025 Basic metabolic 2000 panel - Serum or Plasma BASIC METABOLIC PANEL Lab Routine Hyponatremia Expected: 12/31/2024, Expires: 04/01/2025 [facility] Comment on above: Expected: 12/31/2024, Expires: Start: 12-31-2024 End: 04-01-2025 CBC W Auto Differential panel - Blood COMPLETE BLOOD COUNT AND DIFFERENTIAL Lab Routine Leukocytosis, unspecified type Expected: 12/31/2024, Expires: 04/01/2025 [facility] Work Phone: Comment on above: Expected: 12/31/2024, Expires: Start: 12-30-2024 End: 03-31-2025 HEP BE ANTIBODY HEP BE ANTIBODY Lab Routine Exposure to hepatitis B Expected: 12/30/2024, Expires: 03/31/2025 [facility] Comment on above: Expected: 12/30/2024, Expires: Start: 12-30-2024 End: 03-31-2025 Hepatitis B virus core Ab [Presence] in Serum HEPATITIS B CORE ANTIBODY TOTAL Lab Routine Exposure to hepatitis B Expected: 12/30/2024, Expires: 03/31/2025 [facility] Comment on above: Expected: 12/30/2024, Expires: Start: 12-30-2024 End: 03-31-2025 Hepatitis B virus core IgM Ab [Presence] in Serum HEPATITIS B CORE ANTIBODY IGM Lab Routine Exposure to hepatitis B Expected: 12/30/2024, Expires: 03/31/2025 [facility] Comment on above: Expected: 12/30/2024, Expires: Start: 12-30-2024 End: 03-31-2025 Hepatitis B virus DNA [Units/volume] in Serum HEPATITIS B VIRUS (HBV) DNA, QUANTITATIVE PCR, PLASMA/SERUM Lab Routine Exposure to hepatitis B Expected: 12/30/2024, Expires: 03/31/2025 [facility] Work Phone: Comment on above: Expected: 12/30/2024, Expires: Start: 12-30-2024 End: 03-31-2025 Hepatitis B virus e Ag [Presence] in Serum or Plasma by Immunoassay HEP BE ANTIGEN Lab Routine Exposure to hepatitis B Expected: 12/30/2024, Expires: 03/31/2025 [facility] Comment on above: Expected: 12/30/2024, Expires: Start: 12-30-2024 End: 03-31-2025 Hepatitis B virus surface Ab [Presence] in Serum HEPATITIS B SURFACE ANTIBODY Lab Routine Exposure to hepatitis B Expected: 12/30/2024, Expires: 03/31/2025 [facility] Comment on above: Expected: 12/30/2024, Expires: Start: 12-30-2024 End: 03-31-2025 Hepatitis B virus surface Ag [Presence] in Serum HEPATITIS B SURFACE ANTIGEN Lab Routine Exposure to hepatitis B Expected: 12/30/2024, Expires: 03/31/2025 [facility] Comment on above: Expected: 12/30/2024, Expires: Start: 12-28-2024 End: 12-28-2025 HEP ACUTE PANEL/RNA [facility] Comment on above: Expected: 12/28/2024, Expires: Start: 12-28-2024 End: 12-28-2025 Hepatic function 2000 panel - Serum or Plasma [facility] Work Phone: Comment on above: Expected: 12/28/2024, Expires: 6 Start: 12-28-2024 End: 12-28-2024 Patient encounter procedure [facility] Comment on above: 3 month follow up Annual/2-4 week foll ow up Start: 12-21-2024 Bacteria identified in Blood by Culture Blood Culture [facility] Start: 12-21-2024 Bacteria identified in Urine by Culture Urine Culture [facility] Start: 12-21-2024 [facility] Start: 12-21-2024 End: 12-21-2024 [facility] Start: 12-07-2024 End: 12-07-2024 Patient encounter procedure 12/07/2024 10:00 AM EST Office Visit Family [facility] [address] [place] [address] Radha Batista APRN.PBX TEACHER [address] [place] [address] 1 month follow up Family [facility] Comment on above: 1 month follow up Start: 12-01-2024 End: 12-01-2024 Patient encounter procedure 12/01/2024 12:30 PM EST Office Visit Vasculary Surgery [address] [place] [address] Weakness of both lower extremities [R29.898] [facility] Comment on above: Weakness of both lower extremities [R29. 898] Start: 11-26-2024 End: 11-26-2024 Patient encounter procedure 11/26/2024 8:00 AM EST Office Visit [facility] [address] [place] [address] Weakness of both lower extremities [R29.898] [facility] Comment on above: Weakness of both lower extremities [R29. 898] Start: 11-17-2024 Glaucoma screening Dilated Retinal Exam [facility] Start: 11-12-2024 Patient discharge [facility] Start: 11-11-2024 [facility] Start: 11-11-2024 Physiotherapy of chest [facility] Start: 11-10-2024 Care planning and problem solving actions [facility] Start: 11-10-2024 Aspiration precautions [facility] Start: 11-10-2024 Assessment of risk of venous thromboembolism [facility] Start: 11-10-2024 Care regimes management [facility] Start: 11-10-2024 Continuous positive airway pressure ventilation treatment [facility] Start: 11-10-2024 Insertion of catheter into peripheral vein [facility] Start: 11-10-2024 Measuring intake and output [facility] Start: 11-10-2024 Notification of physician [facility] Start: 11-10-2024 Oxygen therapy [facility] Start: 11-10-2024 Providing care according to standard [facility] Start: 11-10-2024 Provision of activity privileges [facility] Start: 11-10-2024 Referral to service [facility] Start: 11-10-2024 End: 11-10-2024 [facility] Start: 11-10-2024 Respiratory secretion precautions [facility] Start: 11-10-2024 Following clinical pathway protocol [facility] Start: 11-10-2024 Inhalation therapy procedure [facility] Start: 11-09-2024 Admission procedure [facility] Start: 11-09-2024 End: 02-08-2025 INFLUENZA A&B MOLECULAR (POC) INFLUENZA A&B MOLECULAR (POC) Microbiology Routine URI, acute Expected: 11/09/2024, Expires: 02/08/2025 [facility] Work Phone: Comment on above: Expected: 11/09/2024, Expires: Start: 11-05-2024 Annual PCP Team Chronic Disease Visit Annual PCP Team Chronic Disease Visit [facility] Start: 11-05-2024 End: 02-04-2025 Basic metabolic 2000 panel - Serum or Plasma BASIC METABOLIC PANEL Lab Routine Hyponatremia Expected: 11/05/2024, Expires: 02/04/2025 [facility] Work Phone: Comment on above: Expected: 11/05/2024, Expires: Start: 11-05-2024 BP Controlled (<130/80) BP Controlled (<130/80) [facility] Start: 11-05-2024 End: 02-04-2025 CBC W Auto Differential panel - Blood COMPLETE BLOOD COUNT AND DIFFERENTIAL Lab Routine Hyponatremia Expected: 11/05/2024, Expires: 02/04/2025 [facility] Comment on above: Expected: 11/05/2024, Expires: Start: 11-05-2024 Hepatitis B surface antibody level LDL Cholesterol [facility] Start: 11-02-2024 End: 02-01-2025 Aldolase [Enzymatic activity/volume] in Serum or Plasma [facility] Comment on above: Expected: 11/02/2024, Expires: Start: 11-02-2024 End: 02-01-2025 CBC W Auto Differential panel - Blood [facility] Comment on above: Expected: 11/02/2024, Expires: Start: 11-02-2024 End: 02-01-2025 Comprehensive metabolic 2000 panel - Serum or Plasma [facility] Comment on above: Expected: 11/02/2024, Expires: Start: 11-02-2024 End: 02-01-2025 Creatine kinase [Enzymatic activity/volume] in Serum or Plasma [facility] Comment on above: Expected: 11/02/2024, Expires: Start: 11-02-2024 End: 02-01-2025 Hemoglobin A1c in Blood [facility] Work Phone: Comment on above: Expected: 11/02/2024, Expires: Start: 11-02-2024 End: 02-01-2025 LIPID PANEL, NONFASTING [facility] Comment on above: Expected: 11/02/2024, Expires: Start: 10-14-2024 [facility] Start: 10-13-2024 Medicare Advantage Annual Wellness Visit Medicare Advantage Annual Wellness Visit [facility] Start: 09-28-2024 End: 09-28-2024 Patient encounter procedure 09/28/2024 1:00 PM EST Office Visit [facility] [address] [place], [place] [phone] Radha Batista APRN.PBX TEACHER [address] [place], [place] [phone] 3 month follow up [facility] Comment on above: 3 month follow up Start: 09-22-2024 BP Controlled (<130/80) BP Controlled (<130/80) [facility] Start: 09-20-2024 End: 09-20-2024 Patient encounter procedure Cardiology Comment on above: 1 yr follow up 3 month follow up Start: 09-19-2024 Annual PCP Team Chronic Disease Visit Annual PCP Team Chronic Disease Visit [facility] Start: 09-07-2024 End: 09-07-2024 Patient encounter procedure 09/07/2024 10:00 AM EST Office Visit [facility] [address] [place] [address] Shelia Salmon APRN.PBX TEACHER [address] [place] [address] 2 week f/u [facility] Comment on above: 2 week f/u Start: 09-02-2024 Hemoglobin A1c measurement HbA1C [facility] Start: 07-06-2024 End: 10-05-2024 25-hydroxyvitamin D3 [Mass/volume] in Serum or Plasma VITAMIN D 25 HYDROXY Lab Routine Vitamin D deficiency Expected: 07/06/2024, Expires: 10/05/2024 [facility] Comment on above: Expected: 07/06/2024, Expires: Start: 07-06-2024 End: 10-05-2024 CBC W Auto Differential panel - Blood COMPLETE BLOOD COUNT AND DIFFERENTIAL Lab Routine Fatigue, unspecified type Expected: 07/06/2024, Expires: 10/05/2024 [facility] Work Phone: Comment on above: Expected: 07/06/2024, Expires: Start: 07-06-2024 End: 10-05-2024 Comprehensive metabolic 2000 panel - Serum or Plasma COMPREHENSIVE METABOLIC PANEL Lab Routine Uncontrolled type 2 diabetes mellitus with hyperglycemia (HCC) Fatigue, unspecified type Primary hypertension Pure hypercholesterolemia Expected: 07/06/2024, Expires: 10/05/2024 [facility] Comment on above: Expected: 07/06/2024, Expires: Start: 07-06-2024 End: 10-05-2024 Hemoglobin A1c in Blood HEMOGLOBIN A1C Lab Routine Uncontrolled type 2 diabetes mellitus with hyperglycemia (HCC) Expected: 07/06/2024, Expires: 10/05/2024 [facility] Comment on above: Expected: 07/06/2024, Expires: Start: 07-06-2024 End: 10-05-2024 Lipid 1996 panel - Serum or Plasma LIPID PANEL BASIC Lab Routine Pure hypercholesterolemia Expected: 07/06/2024, Expires: 10/05/2024 [facility] Comment on above: Expected: 07/06/2024, Expires: Start: 07-06-2024 End: 10-05-2024 Thyrotropin [Units/volume] in Serum or Plasma THYROID STIMULATING HORMONE Lab Routine Fatigue, unspecified type Expected: 07/06/2024, Expires: 10/05/2024 [facility] Comment on above: Expected: 07/06/2024, Expires: Start: 06-30-2024 End: 06-30-2024 Patient encounter procedure 06/30/2024 8:40 AM EDT Office Visit Family [facility] [place] [address] [place] [address] Radha Batista, MANAGER REGIONAL.PBX TEACHER [address] [place] [address] 3 month follow up Family [facility] [place] Comment on above: 3 month follow up Start: 06-13-2024 Influenza vaccination [facility] Start: 05-05-2024 Hemoglobin A1c measurement HbA1C [facility] Start: 05-04-2024 End: 05-04-2024 Patient encounter procedure 05/04/2024 9:00 AM EDT Office Visit Family [facility] [place] [address] [place] [address] Radha Batista, MANAGER REGIONAL.PBX TEACHER [address] [place] [address] 6 month follow up Family [facility] [place] Comment on above: 6 month follow up Start: 04-29-2024 ANNUAL PCP TEAM CHRONIC DISEASE VISIT ANNUAL PCP TEAM CHRONIC DISEASE VISIT [facility] Start: 04-29-2024 Hepatitis B surface antibody level LDL CHOLESTEROL [facility] Start: 04-01-2024 End: 04-01-2024 ambulatory 04/01/2024 10:00 AM EDT OT/PT/Speech Visit [facility] [address] [place] [address] GoliasLong, PT [address] [place] [address] R29.898 (ICD-10-CM) - Leg weakness, bilateral [facility] Comment on above: R29.898 (ICD-10-CM) - Leg weakness, bila teral Start: 03-30-2024 End: 03-30-2024 ambulatory 03/30/2024 11:30 AM EDT OT/PT/Speech Visit [facility] [address] [place] [address] GoliasLong, PT [address] [place] [address] R29.898 (ICD-10-CM) - Leg weakness, bilateral [facility] Comment on above: R29.898 (ICD-10-CM) - Leg weakness, bila teral Start: 03-30-2024 End: 03-30-2024 Patient encounter procedure 03/30/2024 8:40 AM EDT Office Visit [facility] [address] [place] [address] Radha Batista APRN.PBX TEACHER [address] [place] [address] Medication Review [facility] Comment on above: Medication Review Start: 03-25-2024 End: 03-25-2024 ambulatory 03/25/2024 11:45 AM EDT OT/PT/Speech Visit [facility] [address] [place] [address] Jaci Brady, CONCESSION SUPERVISOR [address] [place] [address] R29.898 (ICD-10-CM) - Leg weakness, bilateral [facility] Comment on above: R29.898 (ICD-10-CM) - Leg weakness, bila teral Start: 03-23-2024 End: 03-23-2024 ambulatory 03/23/2024 10:45 AM EDT OT/PT/Speech Visit [facility] [address] [place] [address] Long Davis, PT [address] [place] [address] R29.898 (ICD-10-CM) - Leg weakness, bilateral [facility] Comment on above: R29.898 (ICD-10-CM) - Leg weakness, bila teral Start: 03-19-2024 End: 03-19-2024 Patient encounter procedure 03/19/2024 8:40 AM EDT Office Visit [facility] [address] [facility] [place] [address] Radha Batista, MANAGER REGIONAL.PBX TEACHER [address] [facility] [place] [address] Anxiety/ weakness in legs. [facility] Comment on above: Anxiety/ weakness in legs. Start: 03-18-2024 End: 03-18-2024 ambulatory 03/18/2024 11:45 AM EDT OT/PT/Speech Visit [facility] [address] [place] [address] Jaci Brady, CONCESSION SUPERVISOR [address] [place] [address] R29.898 (ICD-10-CM) - Leg weakness, bilateral [facility] Comment on above: R29.898 (ICD-10-CM) - Leg weakness, bila teral Start: 03-16-2024 End: 03-16-2024 ambulatory 03/16/2024 11:30 AM EDT OT/PT/Speech Visit [facility] [address] [place] [address] Golias, Long, PT [address] [place] [address] R29.898 (ICD-10-CM) - Leg weakness, bilateral [facility] Comment on above: R29.898 (ICD-10-CM) - Leg weakness, bila teral Start: 03-05-2024 End: 06-04-2024 CBC W Auto Differential panel - Blood COMPLETE BLOOD COUNT AND DIFFERENTIAL Lab Routine Thrombocytopenia (HCC) Expected: 03/05/2024, Expires: 06/04/2024 [facility] Work Phone: Comment on above: Expected: 03/05/2024, Expires: Start: 03-05-2024 End: 06-04-2024 Hepatic function 2000 panel - Serum or Plasma HEPATIC FUNCTION PNL Lab Routine Elevated liver enzymes Expected: 03/05/2024, Expires: 06/04/2024 [facility] Comment on above: Expected: 03/05/2024, Expires: Start: 03-04-2024 End: 03-04-2024 ambulatory 03/04/2024 11:45 AM EDT OT/PT/Speech Visit [facility] [address] [place] [address] Jaci Brady, CONCESSION SUPERVISOR [address] [place] [address] R29.898 (ICD-10-CM) - Leg weakness, bilateral [facility] Physical Therapy Comment on above: R29.898 (ICD-10-CM) - Leg weakness, bila teral Start: 03-02-2024 End: 03-02-2024 ambulatory 03/02/2024 2:45 PM EDT OT/PT/Speech Visit [facility] [address] [place] [address] Golias, Long, PT [address] [place] [address] R29.898 (ICD-10-CM) - Leg weakness, bilateral [facility] Comment on above: R29.898 (ICD-10-CM) - Leg weakness, bila teral Start: 03-02-2024 End: 06-01-2024 Bacteria identified in Urine by Culture [facility] Work Phone: Comment on above: Expected: 03/02/2024, Expires: Start: 03-02-2024 End: 03-02-2024 Patient encounter procedure 03/02/2024 8:40 AM EDT Office Visit [facility] [address] [facility] [place] [address] Radha Batista APRN.PBX TEACHER [address] [place] [address] Medication Review [facility] Comment on above: Medication Review Start: 02-26-2024 End: 02-26-2024 ambulatory 02/26/2024 10:00 AM EDT OT/PT/Speech Visit [facility] [address] [place] [address] Long Davis, PT [address] [place] [address] R29.898 (ICD-10-CM) - Leg weakness, bilateral [facility] Comment on above: R29.898 (ICD-10-CM) - Leg weakness, bila teral Start: 02-24-2024 End: 02-24-2024 ambulatory 02/24/2024 11:00 AM EDT OT/PT/Speech Visit [facility] [address] [place] [address] Jaci Brady, CONCESSION SUPERVISOR [address] [place] [address] R29.898 (ICD-10-CM) - Leg weakness, bilateral [facility] Comment on above: R29.898 (ICD-10-CM) - Leg weakness, bila teral Start: 02-19-2024 End: 02-19-2024 ambulatory 02/19/2024 9:15 AM EDT OT/PT/Speech Visit [facility] [address] [place] [address] Long Davis, PT [address] [place] [address] R29.898 (ICD-10-CM) - Leg weakness, bilateral [facility] Comment on above: R29.898 (ICD-10-CM) - Leg weakness, bila teral Start: 02-17-2024 End: 02-17-2024 ambulatory 02/17/2024 8:45 AM EDT OT/PT/Speech Visit [facility] [address] [place] [address] Jaci Brady, CONCESSION SUPERVISOR [address] [place] [address] R29.898 (ICD-10-CM) - Leg weakness, bilateral [facility] Comment on above: R29.898 (ICD-10-CM) - Leg weakness, bila teral Start: 02-12-2024 End: 02-12-2024 ambulatory 02/12/2024 9:30 AM EDT OT/PT/Speech Visit [facility] [address] [place] [address] Brenda Bradyh, CONCESSION SUPERVISOR [address] [place] [address] R29.898 (ICD-10-CM) - Leg weakness, bilateral [facility] Comment on above: R29.898 (ICD-10-CM) - Leg weakness, bila teral Start: 02-10-2024 End: 02-10-2024 ambulatory 02/10/2024 2:45 PM EDT OT/PT/Speech Visit [facility] [address] [place] [address] Long Davis, PT [address] [place] [address] R29.898 (ICD-10-CM) - Leg weakness, bilateral [facility] Comment on above: R29.898 (ICD-10-CM) - Leg weakness, bila teral Start: 02-05-2024 End: 02-05-2024 ambulatory 02/05/2024 8:45 AM EDT OT/PT/Speech Visit [facility] [address] [place] [address] Jaci Brady, CONCESSION SUPERVISOR [address] [place] [address] R29.898 (ICD-10-CM) - Leg weakness, bilateral [facility] Comment on above: R29.898 (ICD-10-CM) - Leg weakness, bila teral Start: 02-03-2024 Shingrix Vaccine (2 of 2) Shingrix Vaccine (2 of 2) [facility] Start: 12-21-2023 ANNUAL PCP TEAM CHRONIC DISEASE VISIT ANNUAL PCP TEAM CHRONIC DISEASE VISIT [facility] Start: 12-13-2023 [facility] Start: 2023 RSV Vaccine (1 - 1-dose 60+ series) RSV Vaccine (1 - 1-dose 60+ series) [facility] Start: 10-30-2023 Hemoglobin A1c/Hemoglobin.total in Blood HBA1C [facility] Start: 10-13-2023 Behavioral Health Screening Behavioral Health Screening [facility] Start: 10-13-2023 Depression Assessment Depression Assessment [facility] Start: 09-17-2023 Hepatitis C antibody, confirmatory test DILATED RETINAL EXAM [facility] Start: 08-28-2023 ANNUAL PCP TEAM CHRONIC DISEASE VISIT ANNUAL PCP TEAM CHRONIC DISEASE VISIT [facility] Start: 08-21-2023 Hepatitis B surface antibody level LDL CHOLESTEROL [facility] Start: 08-18-2023 Blood chemistry [facility] Start: 08-17-2023 Blood chemistry [facility] Start: 08-16-2023 Patient discharge [facility] Start: 08-15-2023 Following clinical pathway protocol [facility] Start: 08-14-2023 Assessment of risk of venous thromboembolism [facility] Start: 08-14-2023 Bacteria identified in Sputum by Culture [facility] Start: 08-14-2023 Care regimes management [facility] Start: 08-14-2023 Continuous positive airway pressure ventilation treatment [facility] Start: 08-14-2023 Fall prevention [facility] Start: 08-14-2023 Incentive spirometry [facility] Start: 08-14-2023 Inhalation therapy procedure [facility] Start: 08-14-2023 Insertion of catheter into peripheral vein [facility] Start: 08-14-2023 Introduction of urinary catheter [facility] Start: 08-14-2023 Measuring intake and output [facility] Start: 08-14-2023 Notification of physician [facility] Start: 08-14-2023 Oxygen therapy [facility] Start: 08-14-2023 Providing care according to standard [facility] Start: 08-14-2023 Provision of activity privileges [facility] Start: 08-14-2023 Referral to occupational therapist [facility] Start: 08-14-2023 Referral to service [facility] Start: 08-14-2023 [facility] Start: 08-14-2023 Gas panel - Arterial blood [facility] Start: 08-14-2023 Hospital admission, emergency, from emergency room, medical nature [facility] Start: 08-14-2023 Verification routine [facility] Start: 08-14-2023 Admission procedure [facility] Start: 08-14-2023 [facility] Start: 08-14-2023 Respiratory secretion precautions [facility] Start: 08-14-2023 Respiratory Panel (PCR) Respiratory Panel (PCR) [facility] Start: 06-13-2023 Covid-19 Vaccine ( season) Covid-19 Vaccine () [facility] Start: 06-13-2023 Influenza vaccination [facility] Start: 04-29-2023 End: 06-29-2023 Bacteria identified in Urine by Culture [facility] Work Phone: Comment on above: Expected: 04/29/2023, Expires: 3 Start: 04-29-2023 End: 06-29-2023 Comprehensive metabolic 2000 panel - Serum or Plasma [facility] Work Phone: Comment on above: Expected: 04/29/2023, Expires: 3 Start: 04-29-2023 End: 06-29-2023 Hemoglobin A1c in Blood [facility] Work Phone: Comment on above: Expected: 04/29/2023, Expires: 3 Start: 04-29-2023 End: 06-29-2023 LIPID PANEL, NONFASTING [facility] Work Phone: Comment on above: Expected: 04/29/2023, Expires: 3 Start: 04-29-2023 End: 06-29-2023 Magnesium [Mass/volume] in Serum or Plasma [facility] Work Phone: Comment on above: Expected: 04/29/2023, Expires: 3 Start: 04-29-2023 End: 06-29-2023 Thyrotropin [Units/volume] in Serum or Plasma [facility] Work Phone: Comment on above: Expected: 04/29/2023, Expires: 3 Start: 04-29-2023 End: 06-29-2023 Thyroxine (T4) free [Mass/volume] in Serum or Plasma [facility] Work Phone: Comment on above: Expected: 04/29/2023, Expires: 3 Start: 04-29-2023 End: 06-29-2023 Urinalysis complete panel - Urine [facility] Work Phone: Comment on above: Expected: 04/29/2023, Expires: 3 Start: 04-18-2023 Influenza vaccination LUNG CANCER SCREENING [facility] Start: 04-18-2023 Screening for malignant neoplasm of lung Lung Cancer Screening [facility] Start: 03-27-2023 ANNUAL PCP TEAM CHRONIC DISEASE VISIT ANNUAL PCP TEAM CHRONIC DISEASE VISIT [facility] Start: 02-18-2023 Hemoglobin A1c/Hemoglobin.total in Blood HBA1C [facility] Start: 01-30-2023 ANNUAL PCP TEAM CHRONIC DISEASE VISIT ANNUAL PCP TEAM CHRONIC DISEASE VISIT [facility] Start: 01-14-2023 Adult depression screening assessment DEPRESSION SCREENING [facility] Start: 01-14-2023 ANNUAL PCP TEAM CHRONIC DISEASE VISIT ANNUAL PCP TEAM CHRONIC DISEASE VISIT [facility] Start: 01-13-2023 Urine microalbumin profile [facility] Start: 10-26-2022 Hepatitis C antibody, confirmatory test DILATED RETINAL EXAM [facility] Start: 10-13-2022 DEPRESSION ASSESSMENT DEPRESSION ASSESSMENT [facility] Start: 09-26-2022 ANNUAL PCP TEAM CHRONIC DISEASE VISIT ANNUAL PCP TEAM CHRONIC DISEASE VISIT [facility] Start: 08-13-2022 3 comp foot exam completed DIABETIC FOOT EXAM [facility] Start: 08-13-2022 Diabetic foot examination Diabetic Foot Exam [facility] Start: 06-27-2022 Mammography [facility] Start: 06-27-2022 Screening for malignant neoplasm of breast Mammogram Screening [facility] Start: 06-24-2022 COVID-19 VACCINE (5 - Booster for Moderna series) COVID-19 VACCINE (5 - Booster for Moderna series) [facility] Start: 06-13-2022 Influenza vaccination INFLUENZA (#1) [facility] Start: 06-05-2022 Suicide precautions [facility] Work Phone: Start: 06-05-2022 Consultation [facility] Work Phone: Start: 01-14-2022 End: 03-16-2022 ALBUMIN/CREAT RATIO RND UR ALBUMIN/CREAT RATIO RND UR Lab Routine Type 2 diabetes mellitus with diabetic nephropathy, with long-term current use of insulin (HCC) Expected: 01/14/2022, Expires: 03/16/2022 [facility] Work Phone: Comment on above: Expected: 01/14/2022, Expires: Start: 01-14-2022 End: 03-16-2022 Basic metabolic 2000 panel - Serum or Plasma BASIC METABOLIC PNL Lab Routine Water intoxication Expected: 01/14/2022, Expires: 03/16/2022 [facility] Work Phone: Comment on above: Expected: 01/14/2022, Expires: 2 Start: 01-14-2022 End: 03-16-2022 Hemoglobin A1c/Hemoglobin.total in Blood HGB A1C Lab Routine Type 2 diabetes mellitus with diabetic nephropathy, with long-term current use of insulin (HCC) Expected: 01/14/2022, Expires: 03/16/2022 [facility] Work Phone: Comment on above: Expected: 01/14/2022, Expires: 2 Start: 01-14-2022 End: 03-16-2022 LIPID PANEL BASIC LIPID PANEL BASIC Lab Routine Type 2 diabetes mellitus with diabetic nephropathy, with long-term current use of insulin ([facility]) Expected: 01/14/2022, Expires: 03/16/2022 [facility] Work Phone: Comment on above: Expected: 01/14/2022, Expires: 2 Start: 01-14-2022 End: 03-16-2022 VITAMIN D 25 HYDROXY VITAMIN D 25 HYDROXY Lab Routine Vitamin D deficiency Expected: 01/14/2022, Expires: 03/16/2022 [facility] Work Phone: Comment on above: Expected: 01/14/2022, Expires: 2 Start: 01-02-2022 COVID-19 VACCINE (4 - Booster for Moderna series) COVID-19 VACCINE (4 - Booster for Moderna series) [facility] Start: 11-13-2021 Influenza vaccination LUNG CANCER SCREENING [facility] Start: 10-13-2021 DEPRESSION ASSESSMENT DEPRESSION ASSESSMENT [facility] Start: 07-26-2021 Hepatitis B surface antibody level LDL CHOLESTEROL [facility] Start: 05-23-2021 Hemoglobin A1c/Hemoglobin.total in Blood HBA1C [facility] Start: 04-18-2021 3 comp foot exam completed DIABETIC FOOT EXAM [facility] Start: 08-05-2020 Adult depression screening assessment DEPRESSION SCREENING [facility] Start: 06-13-2020 Pneumococcal vaccination [facility] Start: 01-13-2019 FECAL OCCULT BLOOD FECAL OCCULT BLOOD [facility] Start: 01-13-2019 Screening for malignant neoplasm of colon Fecal Occult Blood [facility] Start: 08-08-2015 PNEUMOCOCCAL (2 - PCV) PNEUMOCOCCAL (2 - PCV) [facility] Start: 08-08-2015 Pneumococcal vaccination Pneumococcal Vaccine (2 - PCV) [facility] Start: 2013 SHINGRIX VACCINE (1 of 2) SHINGRIX VACCINE (1 of 2) [facility] Start: 2008 COLOGUARD (FIT-DNA) COLOGUARD (FIT-DNA) [facility] Start: [address] COLONOGRAPHY [facility] Start: 2008 Screening for malignant neoplasm of colon [facility] Start: 2008 SIGMOIDOSCOPY SIGMOIDOSCOPY [facility] Start: 1982 HEPATITIS B (1 of 3 - Risk 3-dose series) HEPATITIS B (1 of 3 - Risk 3-dose series) [facility] Start: 1981 Anxiety Screening Anxiety Screening [facility] Start: 1981 BP Controlled (<130/80) BP Controlled (<130/80) [facility] Start: 1981 Depression Screening Depression Screening [facility] Start: 1981 HIV SCREENING HIV SCREENING [facility] Start: 1981 HIV screening HIV Screening [facility] Start: 1981 SPIROMETRY SPIROMETRY [facility] Start: 1963 HEPATITIS B (1 of 3 - 3-dose series) HEPATITIS B (1 of 3 - 3-dose series) [facility] BACTERIAL VAGINOSIS NAAT BACTERIAL VAGINOSIS NAAT Lab Routine Itching in the vaginal area 08/29/2023 3:29 PM EST [facility] Work Phone: DIONICIO/TRICHOMONAS NAAT DIONICIO/TRICHOMONAS NAAT Lab Routine Itching in the vaginal area 08/29/2023 3:29 PM EST [facility] Work Phone: CBC W Auto Different ial panel - Blood CBC + DIFF Lab Routine Weight loss 04/29/2023 3:51 PM EDT [facility] Work Phone: End: 07-23-2025 DBT Breast - bilateral screening FRANNY SCREENING [facility] Radiology Routine Encounter for screening mammogram for breast cancer 1 Occurrences starting 06/23/2024 until 07/23/2025 [facility] Work Phone: Comment on above: 1 Occurrences starting 06/23/2024 until 07/23/2025 DBT Breast - bilater al screening [facility]NY SCREENING [facility] [place] Radiology Routine Encounter for screening mammogram for breast cancer 01/19/2025 2:51 PM EDT [facility] Work Phone: End: 04-29-2024 ECG COMPLETE ECG COMPLETE ECG Routine Chest pain, unspecified type 1 Occurrences starting 04/29/2023 until 04/29/2024 [facility] Work Phone: Comment on above: 1 Occurrences starting 04/29/2023 until 04/29/2024 ECG COMPLETE ECG COMPLETE ECG Routine Primary hypertension Pure hypercholesterolemia SVT (supraventricular tachycardia) (HCC) Tachycardia 09/20/2024 12:57 PM EST [facility] Work Phone: Hemoglobin.gastroint est inal.lower [Presence] in Stool by Immunoassay FECAL OCCULT BLOOD TEST Lab Routine Weight loss Ordered: 04/29/2023 [facility] Work Phone: Comment on above: Ordered: 04/29/2023 End: 08-14-2024 FRANNY SCREENING FRANNY SCREENING Radiology Routine Encounter for screening mammogram for breast cancer 1 Occurrences starting 07/16/2023 until 08/14/2024 [facility] Work Phone: Comment on above: 1 Occurrences starting 07/16/2023 until 08/14/2024 NM CARDIAC PERF STRESS/PHARM NM CARDIAC PERF STRESS/PHARM Radiology Routine Chest pain, unspecified type Ordered: 04/29/2023 [facility] Work Phone: Comment on above: Ordered: 04/29/2023 Patient Education [facility] Work Phone: Patient referral [facility] Work Phone: Respiratory pathogen s DNA and RNA panel - Respiratory specimen by LUIS M with probe detection [facility] End: 09-06-2023 Screening mammography bi 2-view breast inc cad FRANNY SCREENING Radiology Routine Encounter for screening mammogram for breast cancer 1 Occurrences starting 08/07/2022 until 09/06/2023 [facility] Work Phone: Comment on above: 1 Occurrences starting 08/07/2022 until 09/06/2023 Urine culture [facility] End: 11-02-2025 US.doppler Extremity arteries - bilateral for physiologic artery study PVR ANK PRESS [facility] Vascular Lab Routine Weakness of both lower extremities 1 Occurrences starting 11/02/2024 until 11/02/2025 [facility] Comment on above: 1 Occurrences starting 11/02/2024 until 11/02/2025 [facility] Immunizations Immunization Date Immunization Notes Care Provider Fa [facility] 09-08-2024 pneumococcal conjuga te (PCV20) vaccine, 20 valent (PREVNAR 20) Radha Batista MANAGER [employer]X [employer]ACH[employer] Work Phone: [facility] 09-08-2024 pneumococcal Conjuga te, unspecified formulation Radha Batista MANAGER [employer]IONAL.PBX TEACHER Work Phone: [facility] Work Phone: 07-06-2024 COVID-19 vaccine, ag e 12+ yr (PFIZER-BIONTdigitalbox) Radha Batista MANAGER REGIONAL.PBX TEACHER Work Phone: [facility] 07-06-2024 influenza, seasonal, injectable Radha Batista MANAGER [employer]IONAL.PB[employer] TEACHER Work Phone: [facility] 07-06-2024 influenza virus vaccine, unspecified formulation Aleksandar Jones MD Work Phone: [facility] 12-09-2023 respiratory syncytia l virus (RSV) vaccine, bivalent (ABRYSVO) Radha Batista MANAGER [employer]IONAL.PBX TEACHER Work Phone: [facility] 12-09-2023 zoster vaccine recombinant Radha Batista MANAGER REGIONAL.PBX TEACHER Work Phone: [facility] 11-05-2023 COVID-19 vaccine, ag e 12+ yr, season (PFIZER-BIONTdigitalbox) Meredith Moore MANAGER REGIONAL.PBX TEACHER Work Phone: [facility] 11-05-2023 influenza, injectabl e, quadrivalent, contains preservative Meredith Moore MANAGER REGIONAL.PBX TEACHER Work Phone: [facility] 11-05-2023 influenza virus vaccine, unspecified formulation Radha Batista MANAGER REGIONAL.PBX TEACHER Work Phone: [facility] 08-22-2022 influenza, injectabl e, quadrivalent, preservative free Adriano Menezes MANAGER REGIONAL.PBX TEACHER Work Phone: [facility] 08-22-2022 influenza virus vaccine, unspecified formulation Fuentes Renee MD Work Phone: [facility] 06-29-2021 influenza, injectabl e, quadrivalent, contains preservative Aleksandar Jones MD Work Phone: [facility] 11-29-2020 COVID-19 vaccine, fu ll dose (MODERNA) Aleksandar Jones MD Work Phone: [facility] 11-01-2020 COVID-19 vaccine, fu ll dose (MODERNA) Aleksandar Jones MD Work Phone: [facility] 07-19-2020 influenza, injectabl e, quadrivalent, contains preservative Aleksandar Jones MD Work Phone: [facility] 10-18-2019 Influenza virus vaccine [facility] 10-18-2019 influenza, injectabl e, quadrivalent, contains preservative Aleksandar Jones MD Work Phone: [facility] Work Phone: 06-13-2019 influenza, seasonal, injectable Adriano Menezes MANAGER REGIONAL.PBX TEACHER Work Phone: [facility] 06-13-2019 pneumococcal polysaccharide vaccine, 23 valent Radha Batista MANAGER REGIONAL.PBX TEACHER Work Phone: [facility] 07-18-2018 tetanus toxoid, redu regino diphtheria toxoid, and acellular pertussis vaccine, adsorbed [facility] 07-17-[address] [facility] 07-17-2018 influenza, injectabl e, quadrivalent, contains preservative Aleksandar Jones MD Work Phone: [facility] 08-18-2017 tuberculin skin test ; purified protein derivative solution, intradermal Aleksandar Jones MD Work Phone: [facility] 08-11-2017 tuberculin skin test ; purified protein derivative solution, intradermal Aleksandar Jones MD Work Phone: [facility] 07-14-[address] [facility] 07-14-2017 influenza, seasonal, injectable, preservative free Adriano Pendlebury MANAGER REGIONAL.PBX TEACHER Work Phone: [facility] 06-23-2017 influenza, injectabl e, quadrivalent, preservative free Adriano Pendlebury MANAGER REGIONAL.PBX TEACHER Work Phone: [facility] 07-04-2016 influenza, injectabl e, quadrivalent, contains preservative Aleksandar Jones MD Work Phone: [facility] 07-14-2015 influenza, injectabl e, quadrivalent, preservative free Adriano Pendlebury MANAGER REGIONAL.PBX TEACHER Work Phone: [facility] 07-11-2015 influenza, injectabl e, quadrivalent, preservative free [facility] 07-11-2015 influenza, seasonal, injectable [facility] 07-11-2015 influenza, seasonal, injectable, preservative free Adriano Pendlebury MANAGER REGIONAL.PBX TEACHER Work Phone: [facility] 08-15-[address] [facility] 08-15-2014 influenza, seasonal, injectable, preservative free Adriano Pendlebury MANAGER REGIONAL.PBX TEACHER Work Phone: [facility] 08-15-2014 Pneumococcal Vaccine [facility] Work Phone: 08-15-2014 pneumococcal vaccine , unspecified formulation [facility] 08-08-2014 pneumococcal polysaccharide vaccine, 23 valent Aleksandar Jones MD Work Phone: [facility] 07-27-2014 influenza, seasonal, injectable Aleksandar Jones MD Work Phone: [facility] Work Phone: 01-13-2013 tetanus toxoid, redu regino diphtheria toxoid, and acellular pertussis vaccine, adsorbed Aleksandar Jones MD Work Phone: [facility] Work Phone: 08-05-2011 influenza virus vaccine, unspecified formulation Aleksandar Jones MD Work Phone: [facility] Work Phone: 08-22-2010 influenza virus vaccine, unspecified formulation Aleksandar Jones MD Work Phone: [facility] Work Phone: 1965 influenza, seasonal, injectable Aleksandar Jones MD Work Phone: [facility] Payers Date Payer Category Payer Unknown [id number] 2024 Unknown [id number] 2024 Medicare (Managed Care) [facility] [id number] 2024 Unknown [id number] 2024 Self-pay [id number] 2020 Medicaid [id number] 2020 Medicare [id number] 2017 Medicaid [id number] 2016 Medicare [id number] 1990 Medicare [id number] 1989 Medicare [id number] Unknown [id number] Unknown [id number] [id number]. 462 Unknown [id number] [id number]. 462 Unknown [id number] [id number]. 462 Unknown [id number] 2.16840.1.302473.3.579.2. 462 Unknown [id number] 2.16840.1.022863.3.579.2. 462 Unknown [id number] 2.16840.1.578157.3.579.2. 462 Unknown [id number] 2.16840.1.777170.3.579.2. 462 Unknown [id number] 2.16840.1.656912.3.579.2. 462 Unknown [id number] 2.16.840.1.366639.3.579.2. 462 Unknown [id number] 2.16.840.1.320528.3.579.2. 462 Unknown [id number] 2.16.840.1.516447.3.579.2. 462 Unknown [id number] 2.16840.1.545534.3.579.2. 462 Unknown [id number] 2.16840.1.856462.3.579.2. 462 Unknown [id number] 2.16.840.1.846055.3.579.2. 462 Unknown [id number] 2.16.840.1.258221.3.579.2. 462 Unknown [id number] 2.16.840.1.790872.3.579.2. 462 Unknown [id number] 2.16.840.1.294656.3.579.2. 462 Unknown [id number] 2.16.840.1.447922.3.579.2. 462 Unknown [id number] 2.16.840.1.093499.3.579.2. 462 Unknown [id number] 2.16.840.1.032068.3.579.2. 462 Unknown [id number] [id number]. 462 Unknown [id number] 2.840.1.572316.3.579.2. 462 Unknown [id number] [id number]. 462 Social History Date Type Detail Facility Start: 07-30-2021 End: 12-13-2023 Tobacco smoking status [facility] Unknown if ever smoked [facility] Start: 11-16-2019 None [facility] Start: 11-16-2019 Roommate [facility] Start: 09-10-2020 Non-smoker [facility] Start: 1965 Sex Assigned At Female W [facility] Start: 01-25-2014 End: 07-06-2024 Tobacco smoking status NHIS Ex-smoker [facility] Start: 01-11-1994 End: 01-11-2014 History of tobacco use Current smoker [facility] Start: 01-11-1994 End: 01-11-2014 History of tobacco use Cigarette Smoker [facility] Start: 01-25-2014 End: 03-12-2023 Cigarettes smoked current (pack per day) - Reported 2 [facility] Start: 01-25-2014 End: 07-06-2024 Tobacco use and exposure Smokeless tobacco non-user [facility] Start: 09-26-2021 End: 04-04-2025 Alcohol intake Current non-drinker of alcohol (finding) [facility] Start: 06-19-2018 History SDOH Alcohol Frequency 1 [facility] Start: 06-26-2018 History SDOH Social Connections Phone 5 [facility] Start: 06-26-2018 History SDOH Social Connections Get Together 3 [facility] Start: 06-26-2018 History SDOH Social Connections Living 7 [facility] Start: 06-26-2018 History SDOH Physica l Activity DPW 4 [facility] Start: 06-19-2018 End: 06-26-2018 History SDOH Physical Activity MPS 2 [facility] Start: 06-26-2018 Education 13 [facility] Start: 1965 Sex Assigned At Not on file [facility] Start: 09-18-2020 End: 08-08-2022 Exposure to SARS-CoV-2 (event) Not sure [facility] Start: 06-26-2018 End: 03-12-2023 Social connection and isolation panel [facility] Attends [employer] Services Not on file [facility] Are you now , , , , never or living with a partner? Never [facility] How often to you hav e a drink containing alcohol? Never [facility] Do you feel stress - tense, restless, nervous, or anxious, or unable to sleep at night because your mind is troubled all the time - these days [OSQ] Only a little [facility] (I/We) worried wheth er (my/our) food would run out before (I/we) got money to buy more. Never true [facility] Start: 12-21-2024 End: 01-10-2025 Sex Female (finding) [facility] Medical Equipment Procedure Code Equipment Code Equipment Original Text Equipment Identifier Dates [id number], [id number], [id number], [id number], [id number], [id number], [id number], [id number], [id number], [id number], [id number], [id number] Start: 01-23-2015 End: 06-09-2024 Comment on above: [...] from the original. 04/27/18 A1C 7.5 at [facility] Personal health goal Comment on above: Formatting of this n ote might be different from the original. 04/27/18 A1C 7.5 at [facility] Functional Status Date Assessment Result Facility 11-12-2024 Functional status Bedrest [facility] Work Phone: 08-16-2023 Functional status Activity Abili ty Independent [facility] Work Phone: 08-15-2023 Functional status Ambulates [facility] Work Phone: 05-12-2015 Are you deaf, or do you have serious difficulty hearing No 05/12/2015 1:40 PM EDT Nelly Ceja Cma No [facility] 05-12-2015 Are you blind, or do you have serious difficulty seeing, even when wearing glasses No 05/12/2015 1:40 PM EDT Nelly Ceja Cma No [facility] 05-12-2015 Do you have serious difficulty walking or climbing stairs No 05/12/2015 1:40 PM EDT Nelly Ceja Cma No [facility] 05-12-2015 Do you have difficul ty dressing or bathing No 05/12/2015 1:40 PM EDT Nelly Ceja Cma No [facility] 05-12-2015 Because of a physica l, mental, or emotional condition, do you have difficulty doing errands alone such as visiting a physician's office or shopping No 05/12/2015 1:40 PM EDT Nelly Ceja Cma No [facility] Mental Status Date Assessment Result Facility 11-12-2024 Cognitive function Voice/Name [facility] Work Phone: 08-16-2023 Cognitive function Voice/Name [facility] Work Phone: 05-12-2015 Because of a physica l, mental, or emotional condition, do you have serious difficulty concentrating, remembering, or making decisions No 05/12/2015 1:40 PM EDT Nelly Ceja Cma No [facility] Clinical Notes 08-06-2018 to 05-11-2025 Telephone Encounter - Aleksandar Jones MD - 05/11/2025 12:09 PM EDTTelephone Encounter - Aleksandar Jones MD - 05/11/2025 12:09 PM EDT Note Date & Type Note Facility 05-11-2025 Telephone encounter Note Form atting of this note might be different from the original. I will address at next ov. [facility] 05-11-2025 Miscellaneous Notes Formattin g of this note might be different from the original. I will address at next ov. Laney with [facility] called in with a Statin recommendation. She reports Pt was on Lipitor and it hasn't been renewed since Aug 2024. She states Pt is a diabetic and per the diabetic guidelines should be on a statin. She was asking if provider was going to renew medication. Cristal White RN documented in this encounter [facility] 05-11-2025 Telephone encounter Note Form atting of this note might be different from the original. Laney with [facility] called in with a Statin recommendation. She reports Pt was on Lipitor and it hasn't been renewed since Aug 2024. She states Pt is a diabetic and per the diabetic guidelines should be on a statin. She was asking if provider was going to renew medication. Cristal White RN [facility] 05-10-2025 Evaluation note Diagnosis Onset Date Resolution Abdominal pain acute May 10, 2025 12:24pm Nausea acute May 10 12:24pm Constipation noneactive May 10, 025 12:24pm [facility] Work Phone: 1(643) 186-739907-29-2025 Radiology Diagnostic study note [facility] Imaging Services [address] [address] Lung Screening MR#: [id number] Acct: [id number] Name: BRENDA LE Rep #: [id number] : 1965 F 59 From: Adalid Sanchez MD PCP: Dr. Aleksandar Jones MD Status: FUNMILAYO ARROYO Study:Low Dose CT Lung Screening Date of Exam : 05/06/25 Exam# [id number] Ordering Dr: Koby Ramirez MD PROCEDURE: LOW DOSE CT LUNG SCREENING 05/06/2025 REASON FOR EXAM: NICOTINE DEPENDENCE Former smoker. Patient has smoked 2 packs per day for 20 years. TECHNIQUE: LOW DOSE CT LUNG SCREENING Coronal and Sagittal reconstruction series were provided. One or more dose reduction techniques were used (e.g., Automated exposure control, adjustment of the mA and/or kV according to patient size, use of iterative reconstruction technique). REFERENCE LINK: [employer] Lung-RADS RADIATION DOSE SUMMARY: CTDlvol: 4.02 mGy DLP: 113.3 mGycm COMPARISON: Prior chest radiograph dated December 21, 2024. FINDINGS: PULMONARY NODULES: (Only nodules >3mm are reported) Nodules described below are on series 1 unless otherwise specified. Pulmonary Nodules: No suspicious nodules are seen. Hardware:None Lymph Nodes:Small benign-appearing mediastinal lymph nodes. Heart and Vasculature:The heart is not enlarged. No evidence of pericardial effusion. Coronary Artery Calcifications: Absent Lungs and Airways: Increased markings at the lung bases suggestive of scarring. Scarring and/or atelectasis seen along the posterior aspect of the left upper lobe as well as in the lateral aspect of the left lower lobe. Pleura:Unremarkable Upper Abdomen:Unremarkable Bones:Degenerative changes of the thoracic spine. CT/Low Dose CT Lung Screening IMPRESSION: Findings suggestive of scarring as described. Coronary artery calcification (CAC) is is absent Lung-RADS Category: 2 BENIGN (BASED ON IMAGING FEATURES OR INDOLENT BEHAVIOR). RECOMMEND 12-MONTH SCREENING LDCT. Other Significant Findings: Reading Location: [id number] CC: Dr. Koby Ramirez MD; Dr. Aleksandar Jones MD ~ [employer] Consultant: Signed [facility]06-24-2025 Telephone encounter Note* Telephone Encounter - Alma Smart RN - 04/05/2025 12:55 PM EDT Kaya returned call and given provider's message below with verbalized understanding. Updated contact per Kaya request. [facility]06-24-2025 Miscellaneous Notes* Telephone Encounter - Alma Smart RN - 04/05/2025 12:55 PM EDT Kaya returned call and given provider's message below with verbalized understanding. Updated contact per Kaya request. * Telephone Encounter - Nisha Oneill MA - 04/05/2025 12:45 PM EDT Called phone number for patient and it was for Breanna Elmer, listed as her primary health care nurse. Breanna answered and said Brenda now lives in [facility] and to call her legal guardian, Kaya Fuller. I lefta message for Kaya to call back and speak with a nurse. When she call back, please advise her of results AND update patient contacts. Thanks Nisha Oneill MA April 05, 2025 12:48 PM * Telephone Encounter - Nisha Oneill MA - 04/05/2025 12:32 PM EDT ----- Message from Aleksandar Jones MD sent at 03/31/2025 10:30 AM EDT ----- Let them know ID feels we are ok. No need for any worry or further testing. She does not have hepatitis. documented in [facility] Telephone encounter Note * Telephone Encounter - Nisha Oneill MA - 04/05/2025 12:45 PM EDT Called phone number for patient and it was for Breanna Payne, listed as her primary health care nurse. Breanna answered and said Brenda now lives in [facility] and to call her legal guardian, Kaya Alina. I lefta message for Kaya to call back and speak with a nurse. When she call back, please advise her of results AND update patient contacts. Thanks Nisha Oneill MA April 05, 2025 12:48 PM [facility]06-24-2025 Telephone encounter Note* Telephone Encounter - Nisha Oneill MA - 04/05/2025 12:32 PM EDT ----- Message from Aleksandar Jones MD sent at 03/31/2025 10:30 AM EDT ----- Let them know ID feels we are ok. No need for any worry or further testing. She does not have hepatitis. [facility]06-23-2025 [facility] History of Present illness Narrative* Fuentes Renee MD - 04/04/2025 3:44 PM EDT Images from the original note were not included. Fuentes Renee MD Interventional Cardiology [address] [place], [place] [id number] Chief Complaint Patient presents with: Follow Up HISTORY OF PRESENT ILLNESS: Ms. Le is a 59 year old female With tachycardia presenting for follow-up She reports a recent transition from a fpc to an assisted living facility, which has been challenging. Although she describes the facility as "very, very nice," she experiences significant depression and loneliness. She mentions hearing "voices" that are distressing, stating, "Some days, some nights, I feel like I'm dying." She has a scheduled appointment with her psychiatrist tomorrow butfeels that her current psychiatric care is not adequately addressing her needs. She denies experiencing chest pain or palpitations. She notes feeling "so tired" but attributes this to her current emotional state rather than any cardiac issues. She is currently taking metoprolol 25 mg once daily in the morning, along with albuterol inhalers, aspirin, and Lasix. She is no longer taking clonazepam. Cardiac Risk Factors age (male over 45, female over 55), family history of CAD PAST MEDICAL HISTORY Diagnosis Date Bilateral pneumonia 07/23/2018 Admit [facility]: pneumococcal suspected, neg culture. 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, pt was on metformin for a while but taken off - pt never told if she had DM or not Major depressive disorder, recurrent episode, unspecified Nonspecific elevation of levels of transaminase or lactic acid dehydrogenase (LDH) LIDA (obstructive sleep apnea) Pneumonia Schizophreniform disorder, chronic condition ([facility]) Simple endometrial hyperplasia without atypia mirena IUD [...] date: 01/11/1994 Quit date: 01/11/2014 Years since quittin.2 Smokeless tobacco: Never Vaping Use Vaping status: Never Used Substance Use Topics Alcohol use: No Drug use: No Comment: marijunan- Teen yrs, but not now ALLERGIES No Known Allergies Medications: Current Outpatient Medications Medication Sig Dispense Refill INVEGA SUSTENNA 234 mg/1.5 mL syrg injection Inject 234 mg intramuscularly once every month. gabapentin (NEURONTIN) 100 mg capsule Take two capsules three times daily. 180 capsule 1 acetaminophen (TYLENOL) 325 mg tablet Take 2 tablets by mouth two times a day. 120 tablet 0 ferrous sulfate 325 mg (65 mg iron) tablet Take 1 tablet by mouth two times a day with meals. 120 tablet 5 metFORMIN ER (GLUCOPHAGE XR) 500 mg 24 hr tablet Take 2 tablets by mouth two times a day before meals. 360 tablet 3 potassium chloride ER (KLOR-CON) 20 mEq tablet Take 1 tablet by mouth once daily. 30 tablet 5 docusate sodium (COLACE) 100 mg capsule Take 1 capsule by mouth two times a day. 60 capsule 5 albuterol HFA (VENTOLIN HFA) 90 mcg/actuation inhaler Inhale 2 Puffs as instructed every 4 hours asneeded for wheezing/shortness of breath. 1 Each 1 guaiFENesin (MUCINEX) 600 mg 12 hr tablet Take 2 tablets by mouth once daily. Per Dr. James yu (RELAFEN) 500 mg tablet Take 1 tablet by mouth two times a day. TAKE WITH FOOD 60 tablet5 omeprazole (PRILOSEC) 20 mg capsule Take 1 capsule by mouth daily before breakfast. 1/2 hr before meal. 30 capsule 5 empagliflozin (JARDIANCE) 10 mg tablet Take 1 tablet by mouth daily with breakfast. 30 tablet 11 sodium chloride-aloe vera (AYR SALINE GEL) nasal spray Use 1 mL in the nose two times a day. 88 mL 1 insulin glargine (LANTUS SOLOSTAR U-100 INSULIN) [...] 30 mmHg Dx: I50.31 1 Each 0 omega-3 fatty acids (FISH OIL CONCENTRATE) 1,000 mg cap Take 1 capsule by mouth once daily. 30 capsule 11 Cholecalciferol, Vitamin D3, 25 mcg (1,000 unit) cap Take 1 capsule by mouth once daily. 30 [id number] aspirin, enteric coated (ASPIRIN, ENTERIC COATED) 325 mg EC tablet Take 1 tablet by mouth once daily. Take with food. 30 tablet 11 metoprolol succinate ER (TOPROL XL) 25 mg [...] Use as instructed DXE11.21 150 Strip 11 polyethylene glycol 3350 (MIRALAX) 17 gram packet [...] (HALDOL) 2 mg tablet Take by mouth. Artificial Tear, Hypromellose, (SYSTANE GEL) 0.3 % gel Use 1 Drop in both eyes daily at bedtime. 10mL 5 clonazePAM (KLONOPIN) 0.5 mg tablet Take 0.5 [...] UNTIL READY FOR DOSE 1 Each 0 No current facility-administered medications [...] does not have insomnia. Physical Examination: Vitals:BP 126/85 Pulse 100 Wt 190 lb (86.2kg) SpO2 93% LMP 09/12/2017 BP w/Orthostatic Vitals Date and Time Orthostatic BP Orthostatic Pulse BP Pulse BP Position BP Site BP Cuff Size 04/04/25 1504 -- -- 126/85 100 -- -- -- Last 2 Encounter Wt Readings: Date: Wt: 04/04/2025 86.2 kg (190 lb) 03/29/2025 85.1 kg (187 lb 9.6 oz) Physical Exam Constitutional: General: She is not [...] Pertinent Labs: CBC: Hemoglobin (g/dL) Date Value 01/03/2025 13.5 07/19/2021 14.5 Hematocrit (%) Date Value 01/03/2025 42.2 07/19/2021 43.0 WBC (k/uL) Date Value 01/03/2025 10.58 07/19/2021 9.57 Platelet Count (k/uL) Date Value 01/03/2025 177 07/19/2021 227 BMP: Glucose (mg/dL) Date Value 03/29/2025 182 07/19/2021 109 Potassium (mmol/L) Date Value 03/29/2025 4.4 07/19/2021 4.2 Sodium (mmol/L) Date Value 03/29/2025 131 07/19/2021 133 Chloride (mmol/L) Date Value 03/29/2025 95 07/19/2021 99 CO2 (mmol/L) Date Value 03/29/2025 23 07/19/2021 24 Creatinine (mg/dL) Date Value 03/29/2025 0.51 07/19/2021 0.52 BUN (mg/dL) Date Value 03/29/2025 10 07/19/2021 8 Anion Gap (mmol/L) Date Value 03/29/2025 13 07/19/2021 10 Calcium (mg/dL) Date Value 07/19/2021 9.3 Calcium, Total (mg/dL) Date Value 03/29/2025 9.6 INR: Lipid Profile: Total Cholesterol, Nonfasting Date Value Ref Range Status 11/02/2024 204 (H) <200 mg/dL Final Comment: <200 mg/dL, Desirable 200-239 mg/dL, Borderline high >239 mg/dL, High HDL Cholesterol, Nonfasting Date Value Ref Range Status 11/02/2024 39 (L) >39 mg/dL Final Comment: 40-59 mg/dL, Acceptable >59 mg/dL, High: Negative risk factor for coronary heart disease <40 mg/dL, Low: Positive risk factor for coronary heart disease LDL Cholesterol Calculated, Nonfasting Date Value Ref Range Status 11/02/2024 96 <100 mg/dL Final Comment: <100 mg/dL, Optimal 100-129 mg/dL, Near optimal/above optimal 130-159 mg/dL, Borderline high 160-189 mg/dL, High >189 mg/dL, Very high Secondary prevention optimal LDL Cholesterol levels are recommended to be < 70 mg/dL Triglycerides, Nonfasting Date Value Ref Range Status 11/02/2024 344 (H) <150 mg/dL Final Comment: <150 mg/dL, Normal 150-199 mg/dL, Borderline high 200-499 mg/dL, High >499 mg/dL, Very high Hemoglobin A1C: No results found for: "HGBA1C" TSH: No results found for: "TSHREFL" Prior Cardiac Testing none Assessment and Plan: 59 years old female patient with sinus tachycardia prior history of SVT ASSESSMENT/PLAN: 1. Primary hypertension - ICD9: 401.9, ICD10: I10 (primary diagnosis) - Controlled - Continue current medications - Recommend home blood pressure monitoring, to bring results to next visit - Encouraged sodium restriction, DASH or Mediterranean diet - Recommend regular aerobic exercise 2. SVT (supraventricular tachycardia) (HCC) - ICD9: 427.89, ICD10: I47.10 Continue metoprolol MD Fuentes Sebastian MD Follow up planning: One year Electronically signed by Fuentes Renee MD on April 04, 2025, 3:44 PM The above note was partially created using a dictation recognition software. A reasonable attempt has been made to correct any errors. documented in this encounterOhiohealth [facility] Hospital06-18-2025 NoteMount [facility]el [facility]06-18-2025 History of Present illness Narrative* Aleksandar Jones MD - 03/30/2025 1:26 PM EDT Brenda Le is a 59-year-old female with a history of hyponatremia, water intoxication, CHF, anddiabetes, presenting for a recheck of sodium levels. HPI Hyponatremia: - Recently placed in assisted living to monitor fluid intake. - Follow-up to assess sodium stabilization. - She is having some issues adjusting to change. - Admits to still not being compliant with water restriction. Water Intoxication: - History of water intoxication. As above. CHF: - Under cardiology care. Diabetes: - Sugars stable. Has many somatic complaints. Still seeing psychiatry. complains of fatigue and anxiety. Never got her labs for her liver and sodium. Never got her labs from her hep core antibody rechecked. ID suspected it was lab error and asked us to recheck. - Hep b dna is negative. MEDICATIONS: Current Outpatient Medications Medication Sig INVEGA SUSTENNA 234 mg/1.5 mL syrg injection Inject 234 mg intramuscularly once every month. acetaminophen (TYLENOL) 325 mg tablet Take 2 [...] 4 hours asneeded for wheezing/shortness of breath. guaiFENesin (MUCINEX) 600 mg 12 hr tablet Take 2 tablets by mouth once daily. Per Dr. James carrascotone (RELAFEN) 500 mg tablet Take 1 tablet by mouth two times a day. TAKE WITH FOOD omeprazole (PRILOSEC) 20 mg capsule Take 1 [...] correct size. 20- 30 mmHg Dx: I50.31 omega-3 fatty acids (FISH [...] coverage. Insulin yes Use as instructed DXE11.21 polyethylene glycol 3350 (MIRALAX) 17 gram packet [...] (HALDOL) 2 mg tablet Take by mouth. Artificial Tear, Hypromellose, (SYSTANE GEL) 0.3 % gel Use 1 Drop in both eyes daily at bedtime. clonazePAM (KLONOPIN) 0.5 mg [...] NOT CLICK OPEN UNTIL READY FOR DOSE gabapentin (NEURONTIN) 100 mg capsule Take two capsules three times daily. fluticasone-vilanterol (BREO ELLIPTA) 100-25 mcg/dose inhaler Inhale 1 Inhalation as instructed once daily. Per Dr. Ramirez (Patient not taking: Reported on 03/29/2025) No current facility-administered medications for this visit. ALLERGIES: ALLERGIES No Known Allergies PAST MEDICAL HISTORY Diagnosis Date Bilateral pneumonia 07/23/2018 Admit [facility]: pneumococcal suspected, neg culture. 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 [facility], pt was on metformin for [...] date: 01/11/1994 Quit date: 01/11/2014 Years since quittin.2 Smokeless tobacco: Never Vaping Use Vaping status: Never Used Substance Use Topics Alcohol use: No Drug use: No Comment: marijunan- Teen yrs, but not now Reviewed current medications, allergies, past medical history, surgical history, family history andsocial history today. REVIEW OF SYSTEMS denies chest pain or shortness of breath. no edema. HEALTH MAINTENANCE: Reviewed health maintenance issues today and recommended the following in detail. Shingrix Vaccine(2 of 2) due on 02/03/2024 Medicare Advantage Annual Wellness Visit Never done Dilated Retinal Exam due on 11/17/2024 LAB REVIEWED: VITALS: BP 120/72 (BP Site: Right Arm, BP Position: Sitting, BP Cuff Size: Large Adult) Pulse 100 Temp 36.2 C (97.2 F) (Temporal) Resp 16 Ht 154.9 cm (5' 1") Wt 85.1 kg (187 lb 9.6 oz) LMP 09/12/2017 SpO2 91% BMI 35.45 kg/m Last 4 Encounter Wt Readings: Date: Wt: 03/29/2025 85.1 kg (187 lb 9.6 oz) 01/12/2025 85.3 kg (188 lb) 12/28/2024 84.4 kg (186 lb) 11/09/2024 84.3 kg (185 lb 13.6 oz) PHYSICAL EXAMINATION: GENERAL: NAD, alert and oriented SKIN: unremarkable, no rash or skin lesions. NECK: Supple, no lymphadenopathy, normal thyroid, no carotid bruits. LUNGS: Clear to auscultation bilaterally, no wheezes/rhonchi/rales. HEART: Regular rate and rhythm, no murmurs. No ectopy. EXTREMITIES: Normal, No deformities, No skin discoloration, No edema. NEURO: Awake, alert and oriented x3, cranial nerves II-XII grossly intact, normal gait, no involuntary motions ASSESSMENT AND PLAN 1. Hyponatremia (E87.1) 2. Water intoxication (E87.79) - Ongoing issues with sodium levels; patient recently placed in assisted living to monitor fluid intake. - Re-evaluating sodium stabilization today. - follow labs - continue to encourage 1500 cc water restriction. 3. Type 2 diabetes mellitus with diabetic nephropathy, with long-term current use of insulin (HCC) (E11.21) - Check Hga1c 4. Leukocytosis, unspecified type (D72.829) - stable. 5. Pure hypercholesterolemia (E78.00) - Continue to follow 6. GERD without esophagitis (K21.9) - stable. 7. Schizophreniform disorder, chronic condition (HCC) (F20.81) - follow with psychiatry 8. Chronic obstructive pulmonary disease, unspecified COPD type (HCC) (J44.9) - stable. 9. LIDA (obstructive sleep apnea) (G47.33) - Patient is on CPAP therapy. 10. Cough, unspecified type (R05.9) - doing well. 11. Hepatitis B core antibody positive (R76.8) - recheck labs. follow with ID if needed. 12. History of CHF (congestive heart failure) (Z86.79) - Patient continues to follow up with cardiology. (See patient after visit summary for additional instructions to patient) Aleksandar Jones MD Recording using [employer] software for draft documentation of the visit was discussed with the patient/authorized logistics service representative; all questions welcomed and answered. Patient/authorized logistics service representative agreed to proceed documented in this encounterOhiohealth [facility] Hospital06-17-2025 History of Present illness Narrative* Ritika Estrada, RT(R) - 03/29/2025 10:30 AM EDT Radiology Service Progress Note PATIENT NAME: Brenda Le DATE OF SERVICE: March 29, 2025 TIME: 10:06 AM PATIENT IDENTITY VERIFICATION COMPLETED USING TWO (2) IDENTIFIERS: Name and Date of confirmedby patient verbally. FALL SCREENING: Has the patient had 2 falls in the last year or 1 fall with injury or currently using an Ambulatory Assistive Device (Walker, Cane, Wheelchair, Crutches, etc.)? No PATIENT GENDER DATA: Assigned female at . status: : No status:NO. PATIENT RELEVANT IMPLANT DATA REVIEWED: Yes PATIENT PRESENTS WITH AN IMPLANTABLE OR ATTACHED BOBBIN PAINTER: No RADIOLOGY DEPARTMENT: General X-ray: Exam(s) Completed: Chest X-Ray PERIPHERAL IV DATA: Not applicable SIGNED BY: RT Abbe(R) March 29, 2025 10:06 AM documented in this encounterOhiohealth Doctors Hospital06-17-2025 NoteMount [facility]06-02-2025 Telephone encounter Note* Telephone Encounter - Adrianne Saldivar LPN - 03/14/2025 4:44 PM EDT No show letter #1 [facility]06-02-2025 Miscellaneous Notes* Telephone Encounter - Adrianne Saldivar LPN - 03/14/2025 4:44 PM EDT No show letter #1 documented in this encounterOhiohealth Doctors Hospital05-16-2025 Telephone encounter Note * Telephone Encounter - Maye Ferrer LPN - 02/25/2025 9:24 AM EDT Brenda from [facility] calling to notify PCP that patient has moved to assisted living at [facility] on 02/22/2025. [facility]05-16-[facility] Miscellaneous Notes* Telephone Encounter - Maye Ferrer LPN - 02/25/2025 9:24 AM EDT Brenda from [facility] calling to notify PCP that patient has moved to assisted living at [facility] on 02/22/2025. documented in this encounterOhiohealth Doctors Hospital05-09-2025 Telephone encounter Note * Telephone Encounter - Shirley Romero RN - 02/18/2025 4:26 PM EDT The patient has been identified [...] capsules three times daily. Shirley Romero RN [facility]05-09-2025 Miscellaneous Notes* Telephone Encounter - Shirley Romero RN - 02/18/2025 4:26 PM EDT The patient has been identified [...] capsules three times daily. Shirley Romero RN documented in this encounterOhiohealth Doctors Hospital05-02-2025 Telephone encounter Note * Telephone Encounter - Joselyn Hendricks MA - 02/11/2025 2:12 PM EDT Kaya informed form ready. Taken to medical records. Joselyn Hendricks MA [facility]05-02-2025 Miscellaneous Notes* Telephone Encounter - Joselyn Hendricks MA - 02/11/2025 2:12 PM EDT Kaya informed form ready. Taken to medical records. Joselyn Hendricks MA * Telephone Encounter - Eunice Lam - 02/10/2025 9:07 AM EDT Guardian brought paperwork back as it still looks incomplete (possibly missing an office note?). Please review and advise. Forms have been placed on nurse's desk. Eunice Lam documented in this encounterOhiohealth Doctors Hospital05-01-2025 Telephone encounter Note * Telephone Encounter - Eunice Lam - 02/10/2025 9:07 AM EDT Guardian brought paperwork back as it still looks incomplete (possibly missing an office note?). Please review and advise. Forms have been placed on nurse's desk. Eunice Lam [facility]04-29-2025 Telephone encounter Note* Telephone Encounter - Joselyn Hendricks MA - 02/08/2025 4:49 PM EDT Form completed and noted per request of Kaya. Placed call to cassidy Kirkpatrick at [facility] with no answer. Left message for return call and informing her form is completed. No fax number on form. Joselyn Hendricks MA [facility]04-29-2025 Miscellaneous Notes* Telephone Encounter - Joselyn Hendricks MA - 02/08/2025 4:49 PM EDT Form completed and noted per request of Kaya. Placed call to Kaya, patients guardian at [facility] with no answer. Left message for return call and informing her form is completed. No fax number on form. Joselyn Hendricks MA * Telephone Encounter - Aleksandar Jones MD - 02/07/2025 8:18 PM EDT She needs the fluid restriction. Carb counting is ok. * Telephone Encounter - Anusha Hansen RN - 02/03/2025 9:11 AM EDT Kaya calls back to check on status of updated forms. Notified pending provider review. Kaya reports that provider could add a note that healthy food choices will be encouraged and [place] provide a visual reminder to patient of what healthy food choices are. Kaya also wanted to let provider know that currently in the fpc patient is not adhering to the 1500 cc fluid restriction. Kaya asking if provider could add to the forms that Patient is awareof 1500 mL fluid restriction to address the issues but stay within what the [place] is allowed to do. Anusha Hansen RN * Telephone Encounter - Nisha Oneill MA - 01/31/2025 3:06 PM EDT Copy of form placed on provider's desk. If possible, will give to POLICE SERGEANT's to update if agreeable. Nisha Oneill MA January 31, 2025 3:06 PM * Telephone Encounter - Nel Villafana LPN - 01/31/2025 1:22 PM EDT Pt's guardianKaya, calls to report the Assisted Living Facility she is trying to get pt in advised that they received forms from the dr's office. Kaya was informed that on the forms there was a handwritten part that said pt needs fluid restriction and carb counting. Kaya reports ideally that would be great but at the fpc pt is in now they do not [...] Living. Nel Villafana LPN documented in this encounterOhio[facility]04-28-[facility]25 Telephone encounter Note * Telephone Encounter - Aleksandar Jones MD - 02/07/2025 8:18 PM EDT She needs the fluid restriction. Carb counting is ok. [facility]04-[facility] Telephone encounter Note* Telephone Encounter - Anusha Hansen RN - 02/03/2025 9:11 AM EDT Kaya calls back to check on status of updated forms. Notified pending provider review. Kaya reports that provider could add a note that healthy food choices will be encouraged and Emeterio provide a visual reminder to patient of what healthy food choices are. Kaya also wanted to let provider know that currently in the fpc patient is not adhering to the 1500 cc fluid restriction. Kaya asking if provider could add to the forms that Patient is awareof 1500 mL fluid restriction to address the issues but stay within what the AL is allowed to do. Anusha Hansen RN [facility]04-21-[facility] Telephone encounter Note* Telephone Encounter - Nisha Oneill MA - 01/31/2025 3:06 PM EDT Copy of form placed on provider's desk. If possible, will give to POLICE SERGEANT's to update if agreeable. Nisha Oneill MA January 31, 2025 3:06 PM [facility]04-[facility] Telephone encounter Note* Telephone Encounter - Nel Villafana LPN - 01/31/2025 1:22 PM EDT Pt's guardian, Kaya, calls to report the Assisted Living Facility she is trying to get pt in advised that they received forms from the dr's office. Kaya was informed that on the forms there was a handwritten part that said pt needs fluid restriction and carb counting. Kaya reports ideally that would be great but at the fpc pt is in now they do not [...] get into Assisted Living. 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 * Telephone Encounter - Eunice Spivey RN - 01/27/2025 11:12 AM EDT Kaya calls and states that she did not receive forms that were faxed. Kaya asking if she can comeinto office and berry picker machine operator a copy of forms? Please review and advise, Eunice Spivey RN documented in this encounterOhiohealth Doctors Hospital04-17-2025 Telephone encounter Note * Telephone Encounter - Eunice Spivey RN - 01/27/2025 11:12 AM EDT Kaya calls and states that she did not receive forms that were faxed. Kaya asking if she can comeinto office and berry picker machine operator a copy of forms? Please review and advise, Eunice Spivey RN [facility]04-15-[facility] Telephone encounter Note* Telephone Encounter - Eunice Spivey RN - 01/25/2025 3:22 PM EDT The patient has been identified [...] Spivey RN January 25, 2025 3:23 PM [facility]04-15-20[facility] Miscellaneous Notes* Telephone Encounter - Eunice Spivey RN - 01/25/2025 3:22 PM EDT The patient has been identified [...] 25, 2025 3:23 PM documented in this encounterOhiohealth Doctors Hospital04-14-2025 Telephone encounter Note * Telephone Encounter - Adrianne Saldivar LPN - 01/24/2025 8:21 AM EDT Forms completed and faxed as requested. [facility]04-[facility] Miscellaneous Notes* Telephone Encounter - Adrianne Saldivar LPN - 01/24/2025 8:21 AM EDT Forms completed and faxed as requested. * Telephone Encounter - Eunice Lam - 01/21/2025 1:55 PM EDT Patient's Guardian, Kaya Fuller, dropped off forms for patient's assisted living facility. Please fax completed forms to Kaya at [phone]. Form placed on nurse's desk. Eunice Lam documented in this encounterOhiohealth Doctors Hospital04-11-2025 Telephone encounter Note * Telephone Encounter - Eunice Lam - 01/21/2025 1:55 PM EDT Patient's Guardian, Kaya Fuller, dropped off forms for patient's assisted living facility. Please fax completed forms to Kaya at [phone]. Form placed on nurse's desk. Eunice Lam [facility]04-[facility] History of Present illness Narrative* Samira Christopher Mammo Tech - 01/19/2025 2:20 PM EDT Radiology Service Progress Note PATIENT [...] PATIENT PRESENTS WITH AN IMPLANTABLE OR ATTACHED BOBBIN PAINTER: No RADIOLOGY DEPARTMENT: Mammography PERIPHERAL IV DATA: Not applicable SIGNED BY: Dwight Cheema January 19, 2025 2:55 PM documented in this encounterOhiohealth Doctors Hospital04-09-2025 [facility] History of Present illness Narrative* Ivett Blackburn RDMS - 01/18/2025 10:00 AM EDT Radiology Service Progress Note PATIENT NAME: [...] PATIENT PRESENTS WITH AN IMPLANTABLE OR ATTACHED BOBBIN PAINTER: No RADIOLOGY DEPARTMENT: Ultrasound PERIPHERAL IV DATA: Not applicable SIGNED BY: Ivett Blackburn RDMS January 18, 2025 2:34 PM documented in this encounterOhiohealth Doctors Hospital04-08-2025 NoteMount [facility]04-04-2025 Telephone encounter Note* Telephone Encounter - Frank Joya LPN - 01/14/2025 1:56 PM EDT Lead ConsultantZaira, notified of results/provider instructions. She verbalized understanding. Frank Joya LPN [facility]04-04-2025 Miscellaneous Notes* Telephone Encounter - Frank Joya LPN - 01/14/2025 1:56 PM EDT Lead ConsultantZaira, notified of results/provider instructions. She verbalized understanding. Frank Joya LPN * Telephone Encounter - Radha Batista APRN.PBX TEACHER - 01/14/2025 1:24 PM EDT Images from the original note were not included. It looks like this was ran on 01/11. Sodium is still low, but there was some improvement. Please do not restrict sodium in diet and continue to not over- drink. Recheck sodium in 2 weeks -- order is in. documented in this encounterOhiohealth Doctors Hospital04-04-2025 Telephone encounter Note * Telephone Encounter - Radha Batista APRN.CNP - 01/14/2025 1:24 PM EDT Images from the original note were not included. It looks like this was ran on 01/11. Sodium is still low, but there was some improvement. Please do not restrict sodium in diet and continue to not over- drink. Recheck sodium in 2 weeks -- order is in. [facility]04-02-[facility] Telephone encounter Note* Telephone Encounter - Adrianne Saldivar LPN - 01/12/2025 1:19 PM EDT Lab orders are being corrected. Just need to reorder BMP and hepatic or can be CMP. Notify this nurse when ordered please. [facility]04-02-20[facility] Miscellaneous Notes* Telephone Encounter - Adrianne Saldivar LPN - 01/12/2025 1:19 PM EDT Lab orders are being corrected. Just need to reorder BMP and hepatic or can be CMP. Notify this nurse when ordered please. documented in this encounterOhiohealth Doctors Hospital04-02-2025 Instructions* Patient Instructions* Aleksandar Jones MD - 01/12/2025 10:49 AM EDT Brenda should be on a liter and half of fluid in 24 hours. No more. Get labs today and then again in one month documented in this encounterOhiohealth Doctors Hospital04-02-2025 Telephone encounter Note * Telephone Encounter - Adrianne Saldivar LPN - 01/12/2025 10:12 AM EDT Patient in office today to discuss. [facility]04-02-[facility] Miscellaneous Notes* Telephone Encounter - Adrianne Saldivar LPN - 01/12/2025 10:12 AM EDT Patient in office today to discuss. * Telephone Encounter - Tonie Escobar MA - 01/07/2025 4:28 PM EDT Left message for patient to call office back Tonie Escobar MA * Telephone Encounter - Aleksandar Jones MD - 01/05/2025 11:35 AM EDT Let them know ID felt the labs were likely a false positive. They recommended that we repeat some labs again in four to six weeks and if need be they will see her. documented in this encounterOhiohealth Doctors Hospital04-02-2025 NoteMount [facility]el [facility]04-02-2025 History of Present illness Narrative* Aleksandar Jones MD - 01/12/2025 9:55 AM EDT Patient presents with: Follow Up HPI: Patient [...] and had an arline. Placed on gabapentin. Shenani wondered it if was related to her [...] saw me in 2021. Recently saw Radha Lester for leg pain. Had lumbar xray that showed deg changes. Had done therapy and had an arline. Placed on gabapentin. Nancy wondered it if was related to her [...] Lymph 1.00 - 4.00 k/uL 2.70 2.24 [place]% % 4.8 7.9 Abs [place] <0.87 k/uL 0.56 0.84 Eosin% % 0.3 [...] 4 hours asneeded for wheezing/shortness of breath. guaiFENesin (MUCINEX) 600 [...] correct size. 20- 30 mmHg Dx: I50.31 omega-3 fatty acids (FISH [...] application to affected area once daily. Location:face polyethylene glycol 3350 (MIRALAX) 17 gram packet [...] HISTORY Diagnosis Date Bilateral pneumonia 07/23/2018 Admit [facility]: pneumococcal suspected, neg culture. 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 REVIEW OF SYSTEMS All other [...] stable. Aleksandar Jones MD documented in this encounterOhiohealth [facility] Hospital03-28-2025 Telephone encounter Note * Telephone Encounter - Tonie Escobar MA - 01/07/2025 4:28 PM EDT Left message for patient to call office back Tonie Escobar MA [facility]03-26-2025 Telephone encounter Note* Telephone Encounter - Radha Batista APRN.CNP - 01/05/2025 12:11 PM EDT Noted. Radha Batista APRN.CNP [facility]03-26-2025 Miscellaneous Notes* Telephone Encounter - Radha Batista APRN.CNP - 01/05/2025 12:11 PM EDT Noted. Radha Batista APRN.CNP * Telephone Encounter - Shirley Romero RN - 01/05/2025 10:14 AM EDT Steph Recio calling from [facility] and asking this office to notify [facility] that pt's Jardiance is being held (per previous note below) until lab recheck next week, in regard to pt's pill-packaging service there. This nurse updated [facility] as requested. Steph also requesting pt's last OV note to be faxed to [facility] along with documentation of order for pt to hold Jardiance, in regard to pt's [facility] requirements. Information faxed as requested to FAX #: [phone]. Shirley Romero RN * Telephone Encounter - Frank Joya LPN - 01/04/2025 4:47 PM EDT Spoke /c caregiver, Fransisca, notified of results/provider instructions. Fransisca states they do try to watch her water intake. Fransisca is asking for a new order for compression stockings to be sent to [facility]/t pt threw the last pr away. Frank Joya LPN * Telephone Encounter - Radha Batista APRN.CNP - 01/04/2025 12:54 PM EDT Can please let patient/caregiver know that I received her labs. Her sodium is too low. This could be causing some of her leg symptoms. Lets have her hold the jardiance for now. She needs to restrict fluids to 800cc-1000cc per day. Repeat labs and urine next week.The order is in. Radha Batista APRN.PAVITHRA documented in this encounterOhiohealth Doctors Hospital03-26-2025 Telephone encounter Note * Telephone Encounter - Aleksandar Jones MD - 01/05/2025 11:35 AM EDT Let them know ID felt the labs were likely a false positive. They recommended that we repeat some labs again in four to six weeks and if need be they will see her. [facility]03-[facility] Telephone encounter Note* Telephone Encounter - Shirley Romero RN - 01/05/2025 10:14 AM EDT Steph Recio calling from [facility] and asking this office to notify [facility] that pt's Jardiance is being held (per previous note below) until lab recheck next week, in regard to pt's pill-packaging service there. This nurse updated [facility] as requested. Steph also requesting pt's last OV note to be faxed to [facility] along with documentation of order for pt to hold Jardiance, in regard to pt's Fpc requirements. Information faxed as requested to FAX #: [phone]. Shirley Romero RN [facility]03-26-2025 NoteMount Carmel [facility]03-26-2025 History of Present illness Narrative* Jey Brown III, MD - 01/05/2025 8:27 AM EDT Infectious Disease E-Consult Response In response to your eConsult Infectious Disease request for Brenda Mayberry Le regarding: hep B IgM core antibody positive. History of present illness provided through requesting provider documentation and current treatmentplan was reviewed. 59 year old female has [...] follows: I expect the core IgM is likelya false positive. This would normally be a [...] MD January 05, 2025 documented in this encounterOhiohealth Doctors Hospital03-25-2025 Telephone encounter Note * Telephone Encounter - Frank Joya LPN - 01/04/2025 4:47 PM EDT Spoke /c caregiver, Fransisca, notified of results/provider instructions. Fransisca states they do try to watch her water intake. Fransisca is asking for a new order for compression stockings to be sent to [facility] d/t pt threw the last pr away. Frank Joya LPN [facility]03-25-2025 Telephone encounter Note* Telephone Encounter - Maye Ferrer LPN - 01/04/2025 2:45 PM EDT Patient Guardian Kaya Fuller returned call and went over results, notes from Dr Jones with understanding. Kaya said patient lives in a fpc and she is going to have them call and schedule her ultrasound appt, and lab work. [facility]03-25-[facility] Miscellaneous Notes* Telephone Encounter - Maye Ferrer LPN - 01/04/2025 2:45 PM EDT Patient Guardian Kaya Fuller returned call and went over results, notes from Dr Jones with understanding. Kaya said patient lives in a fpc and she is going to have them call and schedule her ultrasound appt, and lab work. * Telephone Encounter - Joselyn Hendricks MA - 01/04/2025 1:56 PM EDT Message left for wilber Kirkpatrick to return call. Joselyn Hendricks MA * Telephone Encounter - Aleksandar Jones MD - 01/04/2025 11:40 AM EDT Her liver tests have come back. The one test is positive. All the other hep b testing is negative. That can sometimes mean she may have been exposed at some point. No signs of definite active infection. Looking over old charts, prior to when I cared for her, she had seen gi who was discussing doinga liver biopsy due to elevated liver enzymes. Check liver us and repeat liver panel in two weeks. I am going to run her by one of the infection doctors to see what they recommend for further followup and let her know documented in this encounterOhiohealth Doctors Hospital03-25-2025 Telephone encounter Note * Telephone Encounter - Joselyn Hendricks MA - 01/04/2025 1:56 PM EDT Message left for wilber Kirkpatrick to return call. Joselyn Hendricks MA [facility]03-25-2025 Telephone encounter Note* Telephone Encounter - Radha Batista APRN.CNP - 01/04/2025 12:54 PM EDT Can please let patient/caregiver know that I received her labs. Her sodium is too low. This could be causing some of her leg symptoms. Lets have her hold the jardiance for now. She needs to restrict fluids to 800cc-1000cc per day. Repeat labs and urine next week.The order is in. Radha Batista APRN.PAVITHRA [facility]03-25-2025 Telephone encounter Note* Telephone Encounter - Aleksandar Jones MD - 01/04/2025 11:40 AM EDT Her liver tests have come back. The one test is positive. All the other hep b testing is negative. That can sometimes mean she may have been exposed at some point. No signs of definite active infection. Looking over old charts, prior to when I cared for her, she had seen gi who was discussing doinga liver biopsy due to elevated liver enzymes. Check liver us and repeat liver panel in two weeks. I am going to run her by one of the infection doctors to see what they recommend for further followup and let her know [facility]03-24-2025 Telephone encounter Note* Telephone Encounter - Alma Smart RN - 01/03/2025 9:02 AM EDT The patient has been identified [...] Smart RN January 03, 2025 9:03 AM [facility]03-24-20[facility] Miscellaneous Notes* Telephone Encounter - Alma Smart RN - 01/03/2025 9:02 AM EDT The patient has been identified [...] 03, 2025 9:03 AM documented in this encounterOhiohealth Doctors Hospital03-21-2025 Telephone encounter Note * Telephone Encounter - Edel Katz LPN - 12/31/2024 1:31 PM EDT Patient notified of results, verbalizes understanding of instructions. Edel Katz LPN [facility]03-21-2025 Miscellaneous Notes* Telephone Encounter - Edel Katz LPN - 12/31/2024 1:31 PM EDT Patient notified of results, verbalizes understanding of instructions. Edel Katz LPN * Telephone Encounter - Radha Batista APRN.PAVITHRA - 12/31/2024 1:01 PM EDT Can please let patient know that I received her lab results. Her sodium is a little low. Please make sure she isn't drinking too much water and follow her restriction. Recheck lab in 1-2 weeks. documented in this encounterOhiohealth Doctors Hospital03-21-2025 Telephone encounter Note * Telephone Encounter - Radha Batista APRN.PAVITHRA - 12/31/2024 1:01 PM EDT Can please let patient know that I received her lab results. Her sodium is a little low. Please make sure she isn't drinking too much water and follow her restriction. Recheck lab in 1-2 weeks. [facility]03-21-[facility] Telephone encounter Note* Telephone Encounter - Eunice Spivey RN - 12/31/2024 10:53 AM EDT Patient notified of results and provider's instructions. Patient verbalizes understanding. Eunice Spivey RN [facility]03-21-2025 Miscellaneous Notes* Telephone Encounter - Eunice Spivey RN - 12/31/2024 10:53 AM EDT Patient notified of results and provider's instructions. Patient verbalizes understanding. Eunice Spivey RN * Telephone Encounter - Cristal White RN - 12/30/2024 4:52 PM EDT Called and left a message for the Patient to call back and ask for a nurse to receive the providersmessage. Cristal White RN * Telephone Encounter - Aleksandar Jones MD - 12/30/2024 1:11 PM EDT Her liver is better. Her hep b studies are equivocal. May be in error or could have had hep b in the past. Repeat full hep b panel however to be sure. documented in this encounterOhiohealth Doctors Hospital03-20-2025 Telephone encounter Note * Telephone Encounter - Cristal White, RN - 12/30/2024 4:52 PM EDT Called and left a message for the Patient to call back and ask for a nurse to receive the providersmessage. Cristal White, RN [facility]03-20-2025 NoteMount [facility]el [facility]03-20-2025 History of Present illness Narrative* Alexandra Kemp - 12/30/2024 4:24 PM EDT POPULATION HEALTH NAVIGATION OUTREACH Action/[facility] Support: Called pt to schedule an appt in Pain Management. PT was not in. Jerome fall took down the message for the pt to call [phone]. Stated that the number I called is for [facility]. Any agent can assist with scheduling Reason for Outreach Care Gap/HCC or Scheduling Wellness Visits Care Gaps due: N/A Patient Contacted: Unable or unnecessary to reach patient: Left message Navigation Signature: Alexandra Kemp December 30, 2024 4:24 PM documented in this encounterOhiohealth Doctors Hospital03-20-2025 Telephone encounter Note * Telephone Encounter - Aleksandar Jones MD - 12/30/2024 1:11 PM EDT Her liver is better. Her hep b studies are equivocal. May be in error or could have had hep b in the past. Repeat full hep b panel however to be sure. [facility]03-20-20[facility] Telephone encounter Note* Telephone Encounter - Maye Ferrer LPN - 12/30/2024 10:03 AM EDT The patient has been identified [...] Ferrer LPN December 30, 2024 10:03 AM [facility]03-20-2025 Miscellaneous Notes* Telephone Encounter - Maye Ferrer LPN - 12/30/2024 10:03 AM EDT The patient has been identified [...] 30, 2024 10:03 AM documented in this encounterOhiohealth Doctors Hospital03-18-2025 NoteMount [facility]el [facility]03-18-2025 History of Present illness Narrative* Aleksandar Jones MD - 12/28/2024 2:59 PM EDT Patient presents with: Follow Up HPI: Patient presents today for office visit for follow up. She last saw me in 2021. Recently saw Radha Batista for leg pain. Had lumbar xray that showed deg changes. Had done therapy and had an arline. Placed on gabapentin. Shehad wondered it if was related to her [...] Abs Lymph 1.00 - 4.00 k/uL 2.33 [place]% % 6.9 Abs [place] <0.87 k/uL 0.76 Eosin% % 0.1 Abs [...] 4 hours asneeded for wheezing/shortness of breath. nabumetone (RELAFEN) 500 [...] HISTORY Diagnosis Date Bilateral pneumonia 07/23/2018 Admit [facility]: pneumococcal suspected, neg culture. 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 REVIEW OF SYSTEMS No gi or gu issues. All other reviewed and negative other than HPI. HEALTH MAINTENANCE: Reviewed health maintenance issues today and recommended the following in detail. Depression Screening Never done Anxiety Screening Never done Mammogram Screening due on 06/27/2022 Dilated Retinal Exam -sees Dr Jimenez soon. Shingles-appears to have had one, unsure if got second. They will check. VITALS: BP 126/60 Pulse 113 Ht 154.9 cm (5' 1") Wt 84.4 kg (186 lb) LMP 09/12/2017 SpO2 92% BMI35.14 kg/m Normally run's 90's- low 100s for [...] psych Aleksandar Jones MD documented in this encounterOhiohealth Doctors Hospital03-11-2025 Discharge summary [facility] Medical Records Department [address] [place] [address] Emergency Department Summary 12/21/24 MR#: [id number] Acct: [id number] Name: BRENDA LE Rep #:[id number] : 1965 59 From: Babak Garcia DO PCP: Shelia Salmon, DENTAL MOLD MAKER Status:REG ER Location: ED HPI History of Present Illness Chief Complaint: Shortness of Breath Narrative Narrative: Patient is a 59-year-old female with past medical history of COPD, schizophrenia, LIDA on CPAP, anxiety, depression, type 2 diabetes, hypertension, hyperlipidemia who presented to the emergency department with chief complaint ofshortness of breath and cough. Patient states that she has been sick forpast few days. She noted that recently she was in the hospital for pneumonia. Patient notes that she is very short of breath if she tries to lie down flat. Patient states that she is around 2 ill individuals right now in her fpc. Patient states that she has been wheezing a lot lately. Per EMS they did not give any breathing treatments as her lungs were clear for them. [facility] Medical History Obesity (BMI 30-39.9) Hyponatremia Leukocytosis [...] 325 mg tablet,delayed 325 mg PO DAILY@1600 [facility] 07/22/18 07/30/21 History release omeprazole 20 [...] of cholecystectomy Social History housing: other details: long-term. Smoking Status: Former smoker how long ago [...] H Lymph % (Auto) Cancelled 8.6 L [place] % (Auto) Cancelled 4.7 Eos % (Auto) [...] Drop Cells Cancelled Ovalocytes Cancelled Stomatocytes Cancelled Mtz-Lesslie Bodies Cancelled Sara Cells Cancelled Bite Cells Cancelled Crenated Cell [...] Clarity Clear Urine pH 6.5 Ur Specific [place] 1.010 Urine Protein 15 H Urine Glucose [...] (Auto) Neut % (Auto) Lymph % (Auto) [place] % (Auto) Eos % (Auto) Baso % [...] Target Cells Tear Drop Cells Ovalocytes Stomatocytes Mtz-Lesslie Bodies Sara Cells Bite Cells Crenated Cell [...] Color Urine Clarity Urine pH Ur Specific [place] Urine Protein Urine Glucose (UA) Urine Ketones Urine Occult Blood Urine Nitrite Urine Bilirubin Urine Urobilinogen Ur Leukocyte Esterase Urine RBC Urine WBC Ur Squamous Epith Cells Urine Bacteria Urine Mucus Radiography Diagnostic Testing: Clinical Impression(s) from Imaging Studies Chest X-Ray 12/21/24 08:48 IMPRESSION: Pulmonary venous congestion. Reading Location: [facility] Discharge Plan Triage Chief Complaint: Shortness of Breath ED Provider: Babak Garcia Dx/Rx/DC Orders Clinical Impression: COPD exacerbation, [...] Care Provider: Shelia Salmon Referrals: Shelia Salmon, DENTAL MOLD MAKER [Primary Care Provider] - Activity Restrictions/Additional Instructions: You tested positive for COVID-19 here in the emergency department. Start the steroid that was sent to your pharmacy tomorrow as you were given a dose here today already. Use Zofran as needed for nausea. Ensure adequate hydration. Return with worsening symptoms or any concerns. Follow-up with your doctor in outpatient setting. Print Language: Angolan Disposition Disposition: Home, Self Care What to do if you have Problems For any increased pain, shortness of breath, bleeding, nausea or vomiting, chestpain, or any unexpected problems, contact your Primary Care Provider. Call [facility] ([phone]) or report tothe closest Emergency Room. Call 911 if necessary. 12/21/24 1214 Cosigner Signature (if applicable): CC: ESEQUIEL Salmon ~ Signed [facility]03-11-2025 Radiology Diagnostic study note [facility] Imaging Services [address] [place] [address] Chest PA and Lateral MR#: [id number] Acct: [id number] Name: BRENDA LE Rep #: [id number] : 1965 F 59 From: Naomi Carlos MD PCP: ESEQUIEL Headley Status: REG ER Study:Chest PA and Lateral Date of Exam: 12/21/24 Exam# [id number] Ordering Dr: Geena Garcia DO EXAM: XR Chest, 2 Views CLINICAL INDICATION: SOB TECHNIQUE: Frontal and lateral views of the chest. COMPARISON: No relevant prior studies available. FINDINGS: LUNGS AND PLEURAL SPACES: Pulmonary venous congestion. No consolidation. No pneumothorax. HEART: Unremarkable. No cardiomegaly. MEDIASTINUM: Unremarkable. Normal mediastinal contour. BONES/JOINTS: Unremarkable. No acute fracture. RAD/Chest PA and Lateral IMPRESSION: Pulmonary venous congestion. Reading [facility] CC: ESEQUIEL Salmon; Dr. Babak Garcia DO ~ [employer] Consultant: Signed [facility]02-26-2025 Telephone encounter Note* Telephone Encounter - Eunice Spivey, RN - 12/08/2024 4:20 PM EST Ivett from [facility] calls and states that she knows medication [...] Spivey RN December 08, 2024 4:21 PM [facility]02-26-2025 Miscellaneous Notes* Telephone Encounter - Eunice Spivey RN - 12/08/2024 4:20 PM EST Ivett from [facility] calls and states that she knows medication [...] 08, 2024 4:21 PM documented in this encounterOhiohealth [facility]02-26-2025 Telephone encounter Note * Telephone Encounter - Frank Joya LPN - 12/08/2024 9:41 AM EST TC to pt, spoke with caregiver, Breanna. Notified of results/provider response. Breanna verbalized understanding. Frank Joya LPN [facility]02-26-2025 Miscellaneous Notes* Telephone Encounter - Frank Joya LPN - 12/08/2024 9:41 AM EST TC to pt, spoke with caregiver, Breanna. Notified of results/provider response. Breanna verbalized understanding. Frank Joya LPN * Telephone Encounter - Radha Batista APRN.CNP - 12/07/2024 5:40 PM EST Can please let patient know that her chest xray was normal. Radha Batista APRN.PAVITHRA documented in this encounterOhiohealth Doctors Hospital02-25-2025 Telephone encounter Note * Telephone Encounter - Radha Batista APRN.CNP - 12/07/2024 5:40 PM EST Can please let patient know that her chest xray was normal. Radha Batista APRN.CNP [facility]02-25-2025 History of Present illness Narrative* Katie Benavides Tech - 12/07/2024 11:20 AM EST Radiology Service Progress Note PATIENT [...] PATIENT PRESENTS WITH AN IMPLANTABLE OR ATTACHED BOBBIN PAINTER: No RADIOLOGY DEPARTMENT: General X-ray: Exam(s) Completed: Chest X-Ray PERIPHERAL IV DATA: Not applicable SIGNED BY: Nancy Pretty December 07, 2024 11:52 AM documented in this encounterOhiohealth Doctors Hospital02-25-2025 NoteMount [facility]el [facility]02-25-2025 Instructions* Patient Instructions* Radha Batista APRN.CNP - 12/07/2024 10:35 AM EST Get the chest xray. Start the tylenol 650 mg twice daily. Recheck in 2-4 weeks. documented in this encounterOhiohealth Doctors Hospital02-25-2025 NoteMount Carmel [facility] System02-25-2025 History of Present illness Narrative* Radha Batista APRN.CNP - 12/07/2024 10:06 AM EST This is a 59 year old female [...] HISTORY Diagnosis Date Bilateral pneumonia 07/23/2018 Admit [facility]: pneumococcal suspected, neg culture. 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 [facility], pt was on metformin for [...] 4 hours asneeded for wheezing/shortness of breath. guaiFENesin (MUCINEX) 600 mg 12 hr tablet Take 2 tablets by mouth once daily. Per Dr. James carrascotone (RELAFEN) 500 mg tablet Take 1 tablet [...] Well appearing, fatigued, in no acute distress, well- hydrated, well nourished.. Skin: Skin color, texture, turgor [...] improvement. Radha Batista APRN.PAVITHRA documented in this encounterOhiohealth Doctors Hospital02-21-2025 Telephone encounter Note * Telephone Encounter - Frank Joya LPN - 12/03/2024 3:10 PM EST Pt notified. She verbalized understanding. Frank Joya LPN [facility]02-21-2025 Miscellaneous Notes* Telephone Encounter - Frank Joya LPN - 12/03/2024 3:10 PM EST Pt notified. She verbalized understanding. Frank Joya LPN * Telephone Encounter - Radha Batista APRN.CNP - 12/03/2024 2:03 PM EST Ultrasound of the legs was normal. * Telephone Encounter - Eunice Spivey RN - 12/03/2024 9:46 AM EST Patient calling and asking about ultrasound results. Please review and advise, Eunice Spivey RN documented in this encounterOhiohealth Doctors Hospital02-21-2025 Telephone encounter Note * Telephone Encounter - Radha Batista APRN.CNP - 12/03/2024 2:03 PM EST Ultrasound of the legs was normal. [facility]02-21-2025 Telephone encounter Note* Telephone Encounter - Eunice Spivey RN - 12/03/2024 9:46 AM EST Patient calling and asking about ultrasound results. Please review and advise, Eunice Spivey RN [facility]02-17-2025 Telephone encounter Note* Telephone Encounter - Cristal White RN - 11/29/2024 8:57 AM EST Pts home care aide Breanna called in to go over dates and times of Pts upcoming appointments. Went over these with her and where the Vascular study was located. [facility]02-17-2025 Miscellaneous Notes* Telephone Encounter - Cristal White RN - 11/29/2024 8:57 AM EST Pts home care aide Breanna called in to go over dates and times of Pts upcoming appointments. Went over these with her and where the Vascular study was located. documented in this encounterOhiohealth Doctors Hospital02-13-2025 Telephone encounter Note * Telephone Encounter - Shelia Salmon APRN.CNP - 11/25/2024 5:41 PM EST The following approved medication requests have been transmitted electronically. Requested Prescriptions Pending Prescriptions Disp Refills docusate sodium (COLACE) 100 mg capsule 60 capsule 5 Sig: Take 1 capsule by mouth two times a day. Shelia Salmon APRN.CNP [facility]02-13-2025 Miscellaneous Notes* Telephone Encounter - Shelia Salmon APRN.CNP - 11/25/2024 5:41 PM EST The following approved medication requests have been transmitted electronically. Requested Prescriptions Pending Prescriptions Disp Refills docusate sodium (COLACE) 100 mg capsule 60 capsule 5 Sig: Take 1 capsule by mouth two times a day. Shelia Salmon APRN.CNP * Telephone Encounter - Shirley Romero RN - 11/25/2024 2:08 PM EST The patient has been identified [...] day. Shirley Romero RN documented in this encounterOhiohealth Doctors Hospital02-13-2025 Telephone encounter Note * Telephone Encounter - Shirley Romero RN - 11/25/2024 2:08 PM EST The patient has been identified [...] two times a day. Shirley Romero RN [facility]02-12-2025 Telephone encounter Note* Telephone Encounter - Shirley Serna - 2024 2:39 PM EST Prescription Refill Information The patient has been [...] of breath. Shirley Zuniga 2024 2:40 PM [facility]02-12-2025 Miscellaneous Notes* Telephone Encounter - Shirley Serna - 2024 2:39 PM EST Prescription Refill Information The patient has been [...] Zuniga 2024 2:40 PM documented in this encounterOhiohealth Doctors Hospital01-31-2025 [facility] Medical Records Department [address] [place] [address] Discharge Summary 11/12/24 1040 MR#: [id number] Acct: [id number] Name: BRENDA LE Rep #: [id number] : 1965 58 From: Ana Lilia Lebron DO PCP: ESEQUIEL Headley Status:DIS IN Location: [facility] CA526-3 Providers Date of Admission: 11/09/24 Date of [...] of Care Provided Minutes Spent on Discharge: Hospital Course: This 58-year-old white female presented to the emergency room at [facility] from a local fpc with fever and cough. She was seen at an urgent care and told to come to the emergency room when it was discovered that the director group sales stated they could not give her any [...] and inpatient treatment, she was admitted to [place] [address] and initially placed on 2 antibiotics, I evaluated the patient and did not feel she needed IV vancomycin and stop this medication. Patient improved during her hospitalization was weaned off oxygen eventually. On 11/12/2024, patient was seen and examined: On examination she appea (more content notincluded)...[facility]01-29-2025 Telephone encounter Note* Telephone Encounter - Frank Joya LPN - 11/10/2024 9:58 AM EST Phoned jesse Pollard /christian Huang, notified of provider instructions. She verbalized understanding. Frank Joya LPN [facility]01-29-2025 Miscellaneous Notes* Telephone Encounter - Frank Joya LPN - 11/10/2024 9:58 AM EST Phoned jesse Pollard /christian Huang, notified of provider instructions. She verbalized understanding. Frank Joya LPN * Telephone Encounter - Radha Batista APRN.PBX TEACHER - 11/10/2024 9:34 AM EST Thank you for the update. No, we did not have the mucinex on our medication list. I updated her medication list. Yes, can we please increase it to twice daily for 10 days, then resume the previous dose. Radha Batista APRN.PAVITHRA * Telephone Encounter - Nerissa Bedolla LPN - 11/10/2024 9:24 AM EST [facility] is calling asking about the mucinex. PATIENT already takes 2 tablets every morning. Pharmacy is asking if you wish for patient to take the 2 tablets twice daily for just a shortperiod of time? They wanted to make sure the office knew patient was already taking 2 a day. Please review and advise further. Nerissa Bedolla LPN documented in this encounterOhiohealth Doctors Hospital01-29-2025 Telephone encounter Note * Telephone Encounter - Radha Batista APRN.PAVITHRA - 11/10/2024 9:34 AM EST Thank you for the update. No, we did not have the mucinex on our medication list. I updated her medication list. Yes, can we please increase it to twice daily for 10 days, then resume the previous dose. Radha Batista APRN.PAVITHRA [facility]01-29-2025 Telephone encounter Note* Telephone Encounter - Nerissa Bedolla LPN - 11/10/2024 9:[address] [facility]. PATIENT already takes 2 tablets every morning. Pharmacy is asking if you wish for patient to take the 2 tablets twice daily for just a shortperiod of time? They wanted to make sure the office knew patient was already taking 2 a day. Please review and advise further. Nerissa Bedolla LPN [facility]01-29-2025 Evaluation note* Diagnosis Onset Date Resolution Status Admit Date Schizophrenia acute October 11:49pm COPD exacerbation inactive November 09, 2024 11:49pm Hyponatremia inactive October 11:49pm Leukocytosis inactive October 11:49pm Obesity (BMI 30-39.9) inactive Oct 11:49pm Pneumonia inactive November 09, 2024 11:49pm Respiratory insufficiency inactive November 09, 2024 11:49pm [facility] Work Phone: [phone] [phone] History of Present illness Narrative* Neelima Amador [...] PATIENT PRESENTS WITH AN IMPLANTABLE OR ATTACHED BOBBIN PAINTER: No RADIOLOGY DEPARTMENT: General X-ray: Exam(s) Completed: Chest X-Ray PERIPHERAL IV DATA: Not applicable SIGNED BY: RT Sandra(R) November 09, 2024 5:34 PM documented in this encounterOhiohealth Doctors Hospital01-28-2025 NoteMount Carmel [facility]01-28-2025 NoteMount Carmel [facility]01-28-2025 History of Present illness Narrative* Zaira Mancilla APRN.PBX TEACHER - 11/09/2024 5:24 PM EST CC: Patient [...] treatment a day. She lives in a fpc and is accompanied with one of her [...] HISTORY Diagnosis Date Bilateral pneumonia 07/23/2018 Admit [facility]: pneumococcal suspected, neg culture. 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 [facility], pt was on metformin for [...] and frontal sinus tenderness present. Mouth/Throat: Lips: [place]. Mouth: Mucous membranes are moist. Pharynx: Posterior [...] symptoms. After the caregiver spoke to the fpc and pharmacy, it was decided to take the patient to [facility] ED due to the inability of securing the antibiotics this evening and administering breathing treatments required. Report called to [facility] ED, spoke with ED attending. 2. Fever, [...] A&B MOLECULAR (POC) Maty Atkinson TEACHING PROVIDER (Physician/PA/MANAGER REGIONAL) NOTE OF PERSONAL INVOLVEMENT IN CARE: I have personally seen and examined the patient and performed the medical decision-making components. I have reviewed the Advanced Practice Registered Nurse (MANAGER REGIONAL) Student's documentation and verified the findings in the note as written. Any additions or changes are noted in bold/italics. Signature: Zaira Mancilla Date: 11/09/2024 Time: 7:23 PM documented in this encounterOhiohealth Doctors Hospital01-28-2025 Telephone encounter Note * Telephone Encounter - Frank Joya LPN - 11/09/2024 4:08 PM EST Spoke /c tubular splitting machine tender at fpc, notified of provider response. She verbalized understanding. Frank Joya LPN [facility]01-28-2025 Miscellaneous Notes* Telephone Encounter - Frank Joya LPN - 11/09/2024 4:08 PM EST Spoke /c tubular splitting machine tender at fpc, notified of provider response. She verbalized understanding. [...] a swab for covid/flu/rsv. Radha Batista APRN.PAVITHRA * Telephone Encounter - Anusha Hansen RN - 11/09/2024 2:30 PM EST Breanna with [facility] calls with patient. Below messages reviewed with [...] for something OTC can be sent to [facility] as they can't give anything topatient that is not prescribed and she is asking for something for symptoms. Call back number is [phone]. Anusha Hansen RN * Telephone Encounter - Татьяна Escobar MA [...] bad cholesterol is good! documented in this encounterOhiohealth Doctors Hospital01-28-2025 Telephone encounter Note * Telephone Encounter [...] a swab for covid/flu/rsv. Radha Batista APRN.PAVITHRA [facility]01-28-2025 Telephone encounter Note* Telephone Encounter - Anusha Hansen RN - 11/09/2024 2:30 PM EST Breanna with [facility] calls with patient. Below messages reviewed with [...] for something OTC can be sent to [facility] as they can't give anything topatient that is not prescribed and she is asking for something for symptoms. Call back number is [phone]. Anusha Hansen RN [facility]01-27-2025 Telephone encounter Note* Telephone Encounter - Татьяна Escobar MA - 11/08/2024 10:13 AM EST Tried to reach pt, line just rings. Will try again later. Татьяна Escobar MA [facility]01-24-2025 Telephone encounter Note* Telephone Encounter - Radha [...] labwork non-fasting. Her bad cholesterol is good! [facility]01-21-2025 History of Present illness Narrative* Neelima Amador RT(R) - 11/02/2024 3:20 PM EST Radiology [...] PATIENT PRESENTS WITH AN IMPLANTABLE OR ATTACHED BOBBIN PAINTER: No RADIOLOGY DEPARTMENT: General X-ray: Exam(s) Completed: Spine X-Ray(s): Lumbar AP / LAT / L5-S1 PERIPHERAL IV DATA: Not applicable SIGNED jamaica Reeves November 02, 2024 3:28 PM documented in this encounterOhiohealth Doctors Hospital01-21-2025 NoteMount Carmel Health System01-21-2025 Instructions* Patient Instructions* Radha Batista APRN.CNP - 11/02/2024 2:47 PM EST Get the labs. Get the xray. Schedule the circulation test. Increase the afternoon gabapentin to 200 mg. documented in this encounterOhiohealth Doctors Hospital01-21-2025 NoteMount Carmel Health System01-21-2025 History of Present illness Narrative* Radha Batista [...] HISTORY Diagnosis Date Bilateral pneumonia 07/23/2018 Admit [facility]: pneumococcal suspected, neg culture. + rhinovirus Constipation COPD (chronic obstructive pulmonary disease) ([facility]) Diabetes 1.5, managed as type 2 (HCC) found at [facility], pt was on metformin for [...] as needed for worsening/no improvement. Radha Batista APRN.PBX TEACHER documented in this encounterOhiohealth Doctors Hospital01-17-2025 Telephone encounter Note * Telephone Encounter [...] Hansen RN October 29, 2024 11:51 AM [facility]01-17-2025 Miscellaneous Notes* Telephone Encounter - Anusha [...] 29, 2024 11:51 AM documented in this encounterOhiohealth Doctors Hospital12-23-2024 Telephone encounter Note * Telephone Encounter [...] mouth daily with breakfast. Shirley Romero RN [facility]12-23-2024 Miscellaneous Notes* Telephone Encounter - Shirley [...] breakfast. Shirley Romero RN documented in this encounterOhiohealth Doctors Hospital12-17-2024 Instructions* Patient Instructions* Radha Batista APRN.PAVITHRA - 09/28/2024 1:40 PM EST Increase the gabapentin to 3 times daily. Recheck in 3 months, sooner if needed. documented in this encounterOhiohealth Doctors Hospital12-17-2024 NoteMount Carmel Health System12-17-2024 History of Present illness Narrative* Radha Batista APRN.PAVITHRA - 09/28/2024 1:09 PM EST This is [...] HISTORY Diagnosis Date Bilateral pneumonia 07/23/2018 Admit [facility]: pneumococcal suspected, neg culture. 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 [facility], pt was on metformin for [...] as instructed once daily. Per Dr. Sibilia No current facility-administered medications for this visit. [...] as needed for worsening/no improvement. Radha Batista APRN.PBX TEACHER documented in this encounterOhiohealth Doctors Hospital12-13-2024 Telephone encounter Note * Telephone Encounter [...] Spivey RN September 24, 2024 8:16 AM [facility]12-13-2024 Miscellaneous Notes* Telephone Encounter - Eunice [...] 24, 2024 8:16 AM documented in this encounterOhiohealth Doctors Hospital12-09-2024 NoteMount Carmel Health System12-09-2024 History of Present illness Narrative* Fuentes Renee MD - 09/20/2024 1:03 PM EST Images from the original note were not included. Fuentes Renee MD Interventional Cardiology [address] [place] [address] [phone] Chief Complaint Patient presents with: yearly check [...] HISTORY Diagnosis Date Bilateral pneumonia 07/23/2018 Admit [facility]: pneumococcal suspected, neg culture. 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 [facility], pt was on metformin for [...] 1 capsule by mouth once daily. 30 [id number] aspirin, enteric coated (ASPIRIN, ENTERIC COATED) 325 [...] to correct any errors. documented in this encounterOhiohealth Doctors Hospital11-27-2024 Instructions* Patient Instructions* Radha Batista APRN.CNP - 09/08/2024 9:45 AM EST Start the gabapentin. Take nightly X 3 days, then increase to twice daily. Recheck in 3-4 weeks. documented in this encounterOhiohealth Doctors Hospital11-27-2024 NoteMount Carmel Health System11-27-2024 History of Present illness Narrative* Radha Batista [...] HISTORY Diagnosis Date Bilateral pneumonia 07/23/2018 Admit [facility]: pneumococcal suspected, neg culture. + rhinovirus Constipation [...] as needed for worsening/no improvement. Radha Batista APRN.PBX TEACHER documented in this encounterOhiohealth Doctors Hospital11-19-2024 Telephone encounter Note * Telephone Encounter - Cristal White RN - 08/31/2024 9:39 AM EST Reina from [facility] reports the Basaglar is no longer on [...] White RN August 31, 2024 9:42 AM [facility]11-19-2024 Miscellaneous Notes* Telephone Encounter - Cristal White RN - 08/31/2024 9:39 AM EST Reina from [facility] reports the Basaglar is no longer on [...] 31, 2024 9:42 AM documented in this encounterOhiohealth Doctors Hospital11-12-2024 Note* Addendum Note - Shelia Salmon APRN.CNP - 08/24/2024 3:52 PM ESTAddended by: SHELIA SALMON on: 08/24/2024 03:52 PM Modules accepted: Orders [facility]11-12-2024 Miscellaneous Notes* Addendum Note - Shelia Salmon APRN.CNP - 08/24/2024 3:52 PM ESTAddended by: HSELIA SALMON on: 08/24/2024 03:52 PM Modules accepted: Orders documented in this encounterOhiohealth Doctors Hospital11-12-2024 Instructions* Patient Instructions* Shelia Salmon APRN.CNP - 08/24/2024 3:39 PM EST 1) Doxycyline 100 mg 2 x day for 10 days (take with food) 2) Hold iron (Ferex) while on doxycyline 3) Medrol taper 4) Follow up in 10-14 days documented in this encounterOhiohealth Doctors Hospital11-12-2024 NoteMount Carmel Health System11-12-2024 History of Present illness Narrative* Shelia Salmon [...] lot during the day Lives in a fpc, whole house is sick Feels hot Appetite comes and goes Wheezing at night- uses albuterol Red rash in groin that itches and minaya PAST MEDICAL HISTORY: PAST MEDICAL HISTORY Diagnosis Date Bilateral pneumonia 07/23/2018 Admit [facility]: pneumococcal suspected, neg culture. 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 Shelia Salmon APRN.CNP documented in this encounterOhiohealth Doctors Hospital11-08-2024 Telephone encounter Note * Telephone Encounter - Radha Batista APRN.CNP - 08/20/2024 1:17 PM EST Script sent. Radha Batista APRN.CNP [facility]11-08-2024 Miscellaneous Notes* Telephone Encounter - Radha Batista APRN.CNP - 08/20/2024 1:17 PM EST Script sent. Radha Batista APRN.CNP * Telephone Encounter - Carla Ayon LPN - 08/20/2024 8:19 AM EST Dorie from [employer] calls requesting a script for pt for a generic lancing device. The lancets go into this. Script pended. documented in this encounterOhiohealth Doctors Hospital11-08-2024 Telephone encounter Note * Telephone Encounter - Carla Ayon LPN - 08/20/2024 8:19 AM EST Dorie from [employer] calls requesting a script for pt for a generic lancing device. The lancets go into this. Script pended. [facility]11-06-2024 Telephone encounter Note* Telephone Encounter - Maye Ferrer LPN - 08/18/2024 1:43 PM EST Phoned spoke to Breanna and went over notes from Christian Batista POLICE SERGEANT with understanding. Aware rx sent to the pharmacy. [facility]11-06-2024 Miscellaneous Notes* Telephone Encounter - Maye Ferrer LPN - 08/18/2024 1:43 PM EST Phoned spoke to Breanna and went over notes from Christian Batista POLICE SERGEANT with understanding. Aware rx sent to the pharmacy. * Telephone Encounter - Radha Batista APRN.CNP - 08/18/2024 12:46 PM EST Yes, she should have a rescue inhaler for as needed. Script sent. Radha Batista APRN.PBX TEACHER * Telephone Encounter - Adrianne Saldivar LPN - 08/18/2024 9:22 AM EST Patient does have an albuterol inhaler there but is . She is using her daily inhaler as ordered. * Telephone Encounter - Edilia Monroe - 08/18/2024 8:22 AM EST [facility] Caregiver Caller Name: Breanna Call Back Number [phone] Reason for Call: Other Medication question Additional Information: Breanna is asking if Brenda should still have the Rescue inhaler Albuterol sulfate 90 mcg. If so, she would need it refilled at [facility] Please call Breanna back. documented in this encounterOhiohealth [facility] Hospital11-[facility]24 Telephone encounter Note * Telephone Encounter - Radha Batista APRN.CNP - 08/18/2024 12:46 PM EST Yes, she should have a rescue inhaler for as needed. Script sent. Radha Batista APRN.PAVITHRA [facility]11-06-2024 Telephone encounter Note* Telephone Encounter - Adrianne Saldivar LPN - 08/18/2024 9:22 AM EST Patient does have an albuterol inhaler there but is . She is using her daily inhaler as ordered. [facility]11-06-2024 Telephone encounter Note* Telephone Encounter - Edilia Monroe - 08/18/2024 8:22 AM EST [facility] Caregiver Caller Name: Breanna Call Back Number [phone] Reason for Call: Other Medication question Additional Information: Breanna is asking if Brenda should still have the Rescue inhaler Albuterol sulfate 90 mcg. If so, she would need it refilled at [facility] Please call Breanna back. [facility] Work Phone: [phone] Telephone encounter Note* Telephone Encounter - Frank Joya LPN - 08/16/2024 6:14 PM EST Breanna notified. She verbalized understanding. Frank Joya LPN [facility]11-04-2024 Miscellaneous Notes* Telephone Encounter - Frank Joya LPN - 08/16/2024 6:14 PM EST Breanna notified. She verbalized understanding. Frank Joya LPN * Telephone Encounter - Radha Batista APRN.CNP - 08/16/2024 6:07 PM EST Script sent. Radha Batista APRN.PAVITHRA * Telephone Encounter - Edilia Monroe - 08/16/2024 4:21 PM EST [facility] Caller Name: Breanna Call Back Number [phone] Reason for Call: Order for Cough Drops Additional Information: Breanna is calling because the [facility] is unable to give the residents any medication without an order and they would like to provide her with cough drops as necessary. They are asking if it be generic in type and if not a [place] type product. [facility]. documented in this encounterOhiohealth [facility] Hospital11-04-2024 Telephone encounter Note * Telephone Encounter - Radha Batista APRN.CNP - 08/16/2024 6:07 PM EST Script sent. Radha Batista APRN.CNP [facility]11-04-2024 Telephone encounter Note* Telephone Encounter - Edilia Monroe - 08/16/2024 4:21 PM EST [facility] Caller Name: Breanna Call Back Number [phone] Reason for Call: Order for Cough Drops Additional Information: Breanna is calling because the [facility] is unable to give the residents any medication without an order and they would like to provide her with cough drops as necessary. They are asking if it be generic in type and if not a [place] type product. [facility]. [facility] Work Phone: [phone] Telephone encounter Note* Telephone Encounter - Shirley [...] at bedtime. For cholesterol. Shirley Romero RN [facility]10-25-2024 Miscellaneous Notes* Telephone Encounter - Shirley [...] cholesterol. Shirley Romero RN documented in this encounterOhiohealth [facility] Hospital10-19-2024 Telephone encounter Note * Telephone Encounter [...] have any questions, you can call Nurse transportation worker back. [facility]10-19-2024 Miscellaneous Notes* Telephone Encounter - Barbara [...] have any questions, you can call Nurse transportation worker back. documented in this encounterOhiohealth Doctors Hospital10-19-2024 Telephone encounter Note * Telephone Encounter - Joselyn Hendricks MA - 07/31/2024 11:31 AM EDT [place], caregiver informed and given instruction. She verbalized understanding. Joselyn Hendricks MA [facility]10-19-2024 Miscellaneous Notes* Telephone Encounter - Joselyn [...] - 07/31/2024 11:06 AM EDT Jaime patient emergency care tech calling patient had taken another [facility] patient medications before 8am when she came [...] this morning. Please advise documented in this encounterOhiohealth Doctors Hospital10-19-2024 Telephone encounter Note * Telephone Encounter - Aleksandar Jones MD - 07/31/2024 11:28 AM EDT See if can monitor bp and heart rate at least twice today. If increased sedation, chest pain, dizziness etc, to ER [facility]10-19-2024 Telephone encounter Note* Telephone Encounter - Maye Ferrer LPN - 07/31/2024 11:06 AM EDT Jaime patient emergency care tech calling patient had taken another [facility] patient medications before 8am when she came [...] own medications also this morning. Please advise [facility]10-19-2024 Telephone encounter Note* Telephone Encounter - Malcolm Abreu RN - 07/31/2024 10:54 AM EDT Caregiver [...] notified of above and conferenced to caller. [facility]10-19-2024 Miscellaneous Notes* Telephone Encounter - Malcolm Abreu RN - 07/31/2024 10:54 AM EDT Caregiver [...] and conferenced to caller. documented in this encounterOhiohealth Doctors Hospital10-17-2024 Telephone encounter Note * Telephone Encounter - Petrona Jaimes RN - 07/29/2024 2:13 PM EDT Breanna, caregiver at [facility] calling with request for script for new pair of compression stockings. Pended per previous order. Petrona Jaimes RN [facility]10-17-2024 Miscellaneous Notes* Telephone Encounter - Petrona Jaimes RN - 07/29/2024 2:13 PM EDT Breanna, caregiver at [facility] calling with request for script for new pair of compression stockings. Pended per previous order. Petrona Jaimes RN documented in this encounterOhiohealth Doctors Hospital10-11-2024 [facility] History of Present illness Narrative* Adriano Menezes, ADIEL.PBX TEACHER - 07/23/2024 9:09 AM EDT Subjective HPI [...] HISTORY Diagnosis Date Bilateral pneumonia 07/23/2018 Admit [facility]: pneumococcal suspected, neg culture. 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 Adriano Menezes APRN.PBX TEACHER documented in this encounterOhiohealth Doctors Hospital10-10-2024 Telephone encounter Note * Telephone Encounter - Tonie Escobar MA - 07/22/2024 10:41 AM EDT Breanna was notified Tonei Escobar MA [facility]10-10-2024 Miscellaneous Notes* Telephone Encounter - Tonie [...] 07/22/2024 10:14 AM EDT Breanna with the [facility] calls and states that they have [...] advise, Eunice Spivey RN documented in this encounterOhiohealth Doctors Hospital10-10-2024 Telephone encounter Note * Telephone Encounter - Shelia Salmon APRN.PAVITHRA - 07/22/2024 10:27 AM EDT They do not need to check blood pressure every day. Maybe once a week would be good. As you alreadyknow, no fast acting insulin at bedtime. [facility]10-10-2024 Telephone encounter Note* Telephone Encounter - Eunice Spivey RN - 07/22/2024 10:14 AM EDT Breanna with the [facility] calls and states that they have [...] Please review and advise, Eunice Spivey RN [facility]10-02-2024 Telephone encounter Note* Telephone Encounter - Adrianne Saldivar LPN - 07/14/2024 2:20 PM EDT Clarified with staff at facility. [facility]10-02-2024 Miscellaneous Notes* Telephone Encounter - Adrianne Saldivar LPN - 07/14/2024 2:20 PM EDT Clarified with staff at facility. * Telephone Encounter - Aleksandar Jones MD - 07/14/2024 12:34 PM EDT It should be as written in epic. No hs dose. * Telephone Encounter - Brandy Mark LPN - 07/14/2024 11:17 AM EDT Breanna with with [facility] calling regarding pt's insulin Humalog. They have on orders to be giving the above 4 times per day but it does not mention this to be takenat bedtime. This is not on the prescription in epic. Last dose is at dinner. They are questioning if pt needs to be taking this at bedtime and if so what is the sliding scale to go along with this. Please advise Breanna. Brandy Mrak LPN documented in this encounterOhiohealth Doctors Hospital10-02-2024 Telephone encounter Note * Telephone Encounter - Aleksandar Jones MD - 07/14/2024 12:34 PM EDT It should be as written in the medical center. No hs dose. [facility]10-02-2024 Telephone encounter Note* Telephone Encounter - Brandy Mark LPN - 07/14/2024 11:17 AM EDT Breanna with with [facility] calling regarding pt's insulin Humalog. They have on orders to be giving the above 4 times per day but it does not mention this to be takenat bedtime. This is not on the prescription in the medical center. Last dose is at dinner. They are questioning if pt needs to be taking this at bedtime and if so what is the sliding scale to go along with this. Please advise Anna. Brandy Mark LPN [facility]09-27-2024 Telephone encounter Note* Telephone Encounter - [...] Ordonez LPN July 09, 2024 8:50 AM [facility]09-27-2024 Miscellaneous Notes* Telephone Encounter - Angi [...] 09, 2024 8:50 AM documented in this encounterOhiohealth Doctors Hospital09-24-2024 Note* Addendum Note - Radha Batista APRN.CNP - 07/06/2024 6:07 PM EDTAddended by: RADHA BATISTA on: 07/06/2024 06:07 PM Modules accepted: Orders [facility]09-24-2024 Miscellaneous Notes* Addendum Note - Radha Batista APRN.CNP - 07/06/2024 6:07 PM EDTAddended by: RADHA BATISTA on: 07/06/2024 06:07 PM Modules accepted: Orders documented in this encounterOhiohealth Doctors Hospital09-24-2024 Instructions* Patient Instructions* Radha Batista APRN.CNP - 07/06/2024 3:21 PM EDT Return for fasting labwork. Recheck in 3 months, sooner if needed. documented in this encounterOhiohealth Doctors Hospital09-24-2024 History of Present illness Narrative* Radha [...] at times. Doesn't like living at the [facility]. COPD: Follows with Dr. Ramirez. Stable on inhalers. HTN: No CP. Occ SOB d/t COPD.r Diabetes: Sugars have been improved with adding of the sliding scale. Due for A1C. PAST MEDICAL HISTORY: PAST MEDICAL HISTORY Diagnosis Date Bilateral pneumonia 07/23/2018 Admit [facility]: pneumococcal suspected, neg culture. 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 Fatigue, [...] as needed for worsening/no improvement. Radha Batista APRN.PBX TEACHER documented in this encounterOhiohealth Doctors Hospital09-24-2024 NoteMount Carmel [facility] System09-05-2024 Telephone encounter Note* Telephone Encounter - Shelia [...] mouth daily with breakfast. Shelia Salmon APRN.CNP [facility]09-05-2024 Miscellaneous Notes* Telephone Encounter - Shelia [...] breakfast. Shirley Romero RN documented in this encounterOhiohealth Doctors Hospital09-05-2024 Telephone encounter Note * Telephone Encounter [...] mouth daily with breakfast. Shirley Romero RN [facility]09-04-2024 Telephone encounter Note* Telephone Encounter - Loree Chen RN - 06/16/2024 8:26 AM EDT Pharmacy electronically requests the following refill(s) Requested Prescriptions Pending Prescriptions Disp Refills metoprolol succinate ER (TOPROL XL) 25 mg 24 hr tablet [Pharmacy Med Name: Metoprolol Succinate ER 25MG TB24] 30 tablet Sig: take 1 tablet by mouth every evening Loree Chen RN [facility]09-04-2024 Miscellaneous Notes* Telephone Encounter - Loree Chen RN - 06/16/2024 8:26 AM EDT Pharmacy electronically requests the following refill(s) Requested Prescriptions Pending Prescriptions Disp Refills metoprolol succinate ER (TOPROL XL) 25 mg 24 hr tablet [Pharmacy Med Name: Metoprolol Succinate ER 25MG TB24] 30 tablet Sig: take 1 tablet by mouth every evening Loree Chen RN documented in this encounterOhiohealth Doctors Hospital08-28-2024 Telephone encounter Note * Telephone Encounter [...] Ferrer LPN June 09, 2024 10:05 AM [facility]08-28-2024 Miscellaneous Notes* Telephone Encounter - Maye [...] 09, 2024 10:05 AM documented in this encounterOhiohealth Doctors Hospital08-08-2024 Telephone encounter Note * Telephone Encounter - Cristal White RN - 05/20/2024 8:49 AM EDT Laxmi with [facility] called and is notified of providers message. She voices understanding. Cristal White RN [facility]08-08-2024 Miscellaneous Notes* Telephone Encounter - Cristal White RN - 05/20/2024 8:49 AM EDT Laxmi with [facility] called and is notified of providers message. She voices understanding. Cristal White RN * Telephone Encounter - Aleksandar Jones MD - 05/19/2024 4:57 PM EDT Sent over new script * Telephone Encounter - Brandy Mark LPN - 05/19/2024 2:43 PM EDT Breanna Zheng with [facility] she is with pt and we have [...] member. Brandy Mark LPN documented in this encounterOhiohealth Doctors Hospital08-07-2024 Telephone encounter Note * Telephone Encounter - Aleksandar Jones MD - 05/19/2024 4:57 PM EDT Sent over new script [facility]08-07-2024 Telephone encounter Note* Telephone Encounter - Brandy Mark LPN - 05/19/2024 2:43 PM EDT Breanna Grimes. with [facility] she is with pt and we have [...] Breanna or staff member. Brandy Mark LPN [facility]08-06-2024 Telephone encounter Note* Telephone Encounter - [...] Spivey RN May 18, 2024 1:15 PM [facility]08-06-2024 Miscellaneous Notes* Telephone Encounter - Eunice [...] 18, 2024 1:15 PM documented in this encounterOhiohealth Doctors Hospital07-22-2024 Telephone encounter Note * Telephone Encounter - Alma Smart RN - 05/03/2024 12:02 PM EDT [facility] reports insurance will not cover the metronidazole 1%. The insurance is saying they will cover the preferred, which is metronidazole 0.75% Pended. [facility]07-22-2024 Miscellaneous Notes* Telephone Encounter - Alma Smart RN - 05/03/2024 12:02 PM EDT [facility] reports insurance will not cover the metronidazole 1%. The insurance is saying they will cover the preferred, which is metronidazole 0.75% Pended. documented in this encounterOhiohealth Doctors Hospital07-22-2024 Telephone encounter Note * Telephone Encounter [...] application to affected area once daily. Location: chirag Smart RN May 03, 2024 8:51 AM [facility]07-22-2024 Miscellaneous Notes* Telephone Encounter - Alma [...] application to affected area once daily. Location: chirag Smart RN May 03, 2024 8:51 AM documented in this encounterOhiohealth Doctors Hospital07-05-2024 Telephone encounter Note * Telephone Encounter [...] Smart RN April 16, 2024 1:45 PM [facility]07-05-2024 Miscellaneous Notes* Telephone Encounter - Alma [...] 16, 2024 1:45 PM documented in this encounterOhiohealth Doctors Hospital07-05-2024 Telephone encounter Note * Telephone Encounter [...] Spivey RN April 16, 2024 8:43 AM [facility]07-05-2024 Miscellaneous Notes* Telephone Encounter - Eunice [...] 16, 2024 8:43 AM documented in this encounterOhiohealth Doctors Hospital07-03-2024 Instructions* Patient Instructions* Radha Batista APRN.PBX TEACHER - 04/14/2024 1:45 PM EDT Start the bactroban ointment three times daily for a week. Let us know if no better/worsening. Make sure to discuss fatigue with sleep medicine next week to see if another sleep study is indicated. documented in this encounterOhiohealth Doctors Hospital07-03-2024 History of Present illness Narrative* Radha Batista APRN.CNP - 04/14/2024 1:04 PM EDT This is [...] HISTORY Diagnosis Date Bilateral pneumonia 07/23/2018 Admit [facility]: pneumococcal suspected, neg culture. 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 Radha Batista APRN.PBX TEACHER The patient indicates understanding of these issues and agrees with the plan. documented in this encounterOhiohealth Doctors Hospital06-20-2024 History of Present illness Narrative* Long Davis, PT - 04/01/2024 2:25 PM EDT Images from the original note were not included. Episode Visit Count: 16 Therapist That Will Accept/Oversee The Plan Of Care: Long Davis PT Start of Care Date: 01/21/24 [...] and treatment included: Therapeutic exercise, Neuromuscular re-education, Self-shelter management, Gait training, Patient/Family/Caregiver Education, and General [...] : 1005 Session Stop Time : 1047 Long Davis PT documented in this encounterOhiohealth Doctors Hospital06-18-2024 History of Present illness Narrative* Long Davis PT - 03/30/2024 12:19 PM EDT Episode Visit Count: 15 Therapist That Will Accept/Oversee The Plan Of Care: Long Davis PT Start of Care Date: 01/21/24 [...] level seems improved. TREATMENT: Therapeutic Exercise: 1: SciFit StepOne seat [...] : 1132 Session Stop Time : 1215 Long Davis PT documented in this encounterOhiohealth Doctors Hospital06-18-2024 Instructions* Patient Instructions* Radha Batista APRN.CNP - 03/30/2024 9:16 AM EDT Continue the same medication. Get labs. Recheck in 3 months. documented in this encounterOhiohealth Doctors Hospital06-18-2024 History of Present illness Narrative* Radha [...] HISTORY Diagnosis Date Bilateral pneumonia 07/23/2018 Admit [facility]: pneumococcal suspected, neg culture. 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 Radha Batista APRN.PBX TEACHER documented in this encounterOhiohealth Doctors Hospital06-13-2024 History of Present illness Narrative* Long Davis, PT - 03/25/2024 11:50 AM EDT Episode Visit Count: 14 Therapist That Will Accept/Oversee The Plan Of Care: Long Davis PT Start of Care Date: 01/21/24 [...] LEVEL OF FUNCTION: TREATMENT: Therapeutic Exercise: 1: StartBullFit StepOne seat #10 x7 minutes to focus [...] 1146 Session Stop Time : 1218 Jaci Caitlyn CONCESSION SUPERVISOR Long Davis PT documented in this encounterOhiohealth Doctors Hospital06-11-2024 History of Present illness Narrative* Long Davis PT - 03/23/2024 11:30 AM EDT Episode Visit Count: 13 Therapist That Will Accept/Oversee The Plan Of Care: Long Davis PT Start of Care Date: 01/21/24 [...] LEVEL OF FUNCTION: TREATMENT: Therapeutic Exercise: 1: StartBullFit StepOne seat #10 x7 minutes to focus [...] : 1047 Session Stop Time : 1127 Long Davis PT documented in this encounterOhiohealth Doctors Hospital06-07-2024 Telephone encounter Note * Telephone Encounter - Frank Joya LPN - 03/19/2024 3:48 PM EDT Ivett @ [facility] notified. Frank Joya LPN [facility]06-07-2024 Miscellaneous Notes* Telephone Encounter - Frank Joya LPN - 03/19/2024 3:48 PM EDT Ivett @ [facility] notified. Frank Joya LPN * Telephone Encounter - Radha Batista APRN.CNP - 03/19/2024 3:29 PM EDT Actually, changed the insulin to just three times daily with meals. Can please let pharmacy know. Radha Batista APRN.PAVITHRA * Telephone Encounter - Anusha Hansen RN - 03/19/2024 3:10 PM EDT Ivett selvin Pollard calls to request updated orders for lancets, test strips, and pen needles. She said per insurance coverage if she is using the sliding scale insulin 4 times daily then ordersfor test strips should be 4 times daily and so they dispense enough pen needles asking for order joe for 5 x daily for basaglar and lispro. Pended requests for review. Please advise. Anusha Hansen RN documented in this encounterOhiohealth Doctors Hospital06-07-2024 Telephone encounter Note * Telephone Encounter - Delfina Burns LPN - 03/19/2024 3:29 PM EDT Caregiver given below information. [facility]-07[facility] Telephone encounter Note* Telephone Encounter - Radha Batista APRN.CNP - 03/19/2024 3:29 PM EDT Actually, changed the insulin to just three times daily with meals. Can please let pharmacy know. Radha Batista APRN.PAVITHRA [facility]06-07-2024 Miscellaneous Notes* Telephone Encounter - Delfina [...] time). New orders have been sent to [facility]. Please call us with sugars in 1 week after updating her medication regimen and with status update. Radha Batista APRN.PAVITHRA * Telephone Encounter - Alma Smart RN - 03/18/2024 12:45 PM EDT Ambreen- [facility]- returned call. Given message from PT. Ambreen [...] 12:16 PM EDT Left a message with [facility] for someone to call and speak with [...] Thanks, Jaci Brady PTA documented in this encounterOhiohealth Doctors Hospital06-07-2024 Telephone encounter Note * Telephone Encounter - Anusha Hansen RN - 03/19/2024 3:10 PM EDT Ievtt selvin Pollard calls to request updated orders for lancets, [...] for review. Please advise. Anusha Hansen, RN [facility]06-07-2024 Telephone encounter Note* Telephone Encounter - Frank Joya LPN - 03/19/2024 2:31 PM EDT LM with [facility] to return call to office. Please notify of the following when she returns call to office. Increase Basaglar to 60units at 4pm. Restart Humalog per sliding scale. Check sugars three times daily and call with readings in 1 week. Frank Joya LPN [facility]06-07-2024 Telephone encounter Note* Telephone Encounter - Radha Batista APRN.CNP - 03/19/2024 2:24 PM EDT Can we please call the assisted living and review new orders with them. (The computer system was down at the time of the office visit and was unable to complete at that time). New orders have been sent to [facility]. Please call us with sugars in 1 week after updating her medication regimen and with status update. Radha Batista APRN.PAVITHRA [facility]06-07[facility] History of Present illness Narrative* Radha [...] but it never made it to the [place] where she lives. PAST MEDICAL HISTORY: PAST MEDICAL HISTORY Diagnosis Date Bilateral pneumonia 07/23/2018 Admit [facility]: pneumococcal suspected, neg culture. 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 Radha Batista APRN.PBX TEACHER documented in this encounterOhiohealth Doctors Hospital06-06-2024 Telephone encounter Note * Telephone Encounter - Alma Smart RN - 03/18/2024 12:45 PM EDT [facility]- [facility]- returned call. Given message from PT. Crook reports patient is eating right now [...] Radha. Schedule appt for tomorrow with Radha. [facility]06-[facility] Telephone encounter Note* Telephone Encounter - Adrianne Saldivar LPN - 03/18/2024 12:16 PM EDT Left a message with [facility] for someone to call and speak with nurse. [facility] [facility] Telephone encounter Note* Telephone Encounter - Aleksandar Jones MD - 03/18/2024 12:07 PM EDT See below. Can we triage. Likely needs to see one of us [facility]06-06-2024 Telephone encounter Note* Telephone Encounter - [...] out to her. Thanks, Jaci Brady PTA [facility]06-06-2024 History of Present illness Narrative* Je Ty, PT - 03/18/2024 11:53 AM EDT Pt arrived to therapy, but was not seen for a treatment today. Pt stated she was not feeling well (felt very weak and achy and had a stomach ache) and had a pale color to her face.Communicated with pt's home care aide that is was in the best interest of the pt to not complete a treatment today. MELINDA Del Toro PT documented in this encounterOhiohealth Doctors Hospital06-04-2024 History of Present illness Narrative* Long Davis, PT - 03/16/2024 11:15 PM EDT Images from the original note were not included. Episode Visit Count: 12 Therapist That Will Accept/Oversee The Plan Of Care: Long Davis PT Start of Care Date: 01/21/24 [...] Patient to be seen for Therapeutic exercise (04175), Neuromuscular re-education (41327), Manual therapy (41357), Therapeutic activities (36913), Self-shelter management (66427), Gait Training (41650), Patient/Family/Caregiver Education, Body Mechanics Training, General Conditioning, [...] : 1132 Session Stop Time : 1217 Long Davis PT documented in this encounterOhiohealth Doctors Hospital05-31-2024 Telephone encounter Note * Telephone Encounter - Rolf Herrera DO - 03/12/2024 3:01 PM EDT Greg I was called last evening by nurse data conversion developer regarding your patient who lives at a fpc and is currently on medication for diabetes [...] sugars. All the best Thank you Rolf [facility] Work Phone: 1(222) 305-747005-31-2024 Miscellaneous Notes* Telephone Encounter - Rolf Herrera DO - 03/12/2024 3:01 PM EDT Greg I was called last evening by nurse data conversion developer regarding your patient who lives at a fpc and is currently on medication for diabetes [...] best Thank you Rolf documented in this encounterOhiohealth Doctors Hospital05-24-2024 Telephone encounter Note * Telephone Encounter - Cristal White RN - 03/05/2024 4:15 PM EDT Melony Pts guardian called and is notified of providers results and instructions. She voices understanding. Faxed copy of Pts medication list and lab orders to her at fax # [phone]. Cristal White RN [facility]05-24-2024 Miscellaneous Notes* Telephone Encounter - Cristal White RN - 03/05/2024 4:15 PM EDT Melony Pts guardian called and is notified of providers results and instructions. She voices understanding. Faxed copy of Pts medication list and lab orders to her at fax # [phone]. Cristal White RN * Telephone Encounter - [...] in. Radha Batista APRN.CNP documented in this encounterOhiohealth Doctors Hospital05-24-2024 Telephone encounter Note * Telephone Encounter - Radha Batsita APRN.CNP - 03/05/2024 1:16 PM EDT Can [...] weeks. Orders are in. Radha Batista APRN.CNP [facility]05-23-2024 History of Present illness Narrative* Long Davis, PT - 03/04/2024 11:43 AM EDT Episode Visit Count: 11 Therapist That Will Accept/Oversee The Plan Of Care: Long Davis, СЕРГЕЙ Start of Care Date: 01/21/24 Onset Date: [...] MELINDA Del Toro PT documented in this encounterOhiohealth Doctors Hospital05-21-2024 History of Present illness Narrative* Long Davis PT - 03/02/2024 3:36 PM EDT Episode Visit Count: 10 Therapist That Will Accept/Oversee The Plan Of Care: Long Davis PT Start of Care Date: 01/21/24 [...] : 1445 Session Stop Time : 1525 Long Davis PT documented in this encounterOhiohealth Doctors Hospital05-21-2024 Instructions* Patient Instructions* Radha Batista APRN.CNP - 03/02/2024 9:27 AM EDT Stop the celebrex. Start the relafen. Get labs/urine. Recheck in 1 month, sooner if needed. documented in this encounterOhiohealth Doctors Hospital05-21-2024 History of Present illness Narrative* Radha [...] HISTORY Diagnosis Date Bilateral pneumonia 07/23/2018 Admit [facility]: pneumococcal suspected, neg culture. + rhinovirus Constipation [...] as needed for worsening/no improvement. Radha Batista APRN.PBX TEACHER documented in this encounterOhiohealth Doctors Hospital05-16-2024 History of Present illness Narrative* Long Davis PT - 02/26/2024 10:46 AM EDT Episode Visit Count: 9 Therapist That Will Accept/Oversee The Plan Of Care: Long Davis PT Start of Care Date: 01/21/24 [...] 1: [employer] StepOne seat #10 x5 minutes (Pt provided [...] : 1005 Session Stop Time : 1033 Long Davis PT documented in this encounterOhiohealth Doctors Hospital05-14-2024 Telephone encounter Note * Telephone Encounter [...] Please advise. Thank you. Edel East RN. [facility]05-14-2024 Miscellaneous Notes* Telephone Encounter - Edel [...] you. Edel East RN. documented in this encounterOhiohealth Doctors Hospital05-14-2024 History of Present illness Narrative* Long Davis, PT - 02/24/2024 11:04 AM EDT Episode Visit Count: 8 Therapist That Will Accept/Oversee The Plan Of Care: Long Davis PT Start of Care Date: 01/21/24 [...] 1100 Session Stop Time : 1140 Jaci Brady, CONCESSION SUPERVISOR Long Davis PT documented in this encounterOhiohealth Doctors Hospital05-09-2024 History of Present illness Narrative* Long Davis PT - 02/19/2024 11:47 AM EDT Images from the original note were not included. Episode Visit Count: 7 Therapist That Will Accept/Oversee The Plan Of Care: Long Davis PT Start of Care Date: 01/21/24 [...] Patient to be seen for Therapeutic exercise (44433), Neuromuscular re-education (21524), Manual therapy (05418), Therapeutic activities (68142), Self-shelter management (91499), Gait Training (93567), Patient/Family/Caregiver Education, Body Mechanics Training, General Conditioning, [...] : 916 Session Stop Time : 1003 Long Davis PT * Long Davis PT - 02/19/2024 9:55 AM EDT Program_ID:[id number] Access Code: [email or web address] URL: [email or web address] Date: 02-19-2024 Prepared By: Long Davis Program Notes Exercises - Hooklying Single [...] sets - 10 reps documented in this encounterOhiohealth Doctors Hospital05-07-2024 History of Present illness Narrative* Jaci Brady PTA - 02/17/2024 9:07 AM EDT Program_ID:[id number] Access Code: [email or web address] URL: [email or web address] Date: 02-17-2024 Prepared By: Long Davis Program Notes Exercises - Hooklying Single [...] - 2 sets - 10 reps * Long Davis PT - 02/17/2024 8:48 AM EDT Episode Visit Count: 6 Therapist That Will Accept/Oversee The Plan Of Care: Long Davis PT Start of Care Date: 01/21/24 [...] : 844 Session Stop Time : 922 Jaci Brady, CONCESSION SUPERVISOR Long Davis PT documented in this encounterOhiohealth Doctors Hospital05-02-2024 History of Present illness Narrative* Long Davis PT - 02/12/2024 9:39 AM EDT Episode Visit Count: 5 Therapist That Will Accept/Oversee The Plan Of Care: Long Davis PT Start of Care Date: 01/21/24 [...] MELINDA Del Toro PT documented in this encounterOhiohealth Doctors Hospital04-30-2024 History of Present illness Narrative* Long Davis PT - 02/10/2024 3:34 PM EDT Episode Visit Count: 4 Therapist That Will Accept/Oversee The Plan Of Care: Long Davis PT Start of Care Date: 01/21/24 [...] : 1452 Session Stop Time : 1531 Long Davis PT documented in this encounterOhiohealth Doctors Hospital04-25-2024 History of Present illness Narrative* Long Davis PT - 02/05/2024 8:55 AM EDT Episode Visit Count: 3 Therapist That Will Accept/Oversee The Plan Of Care: Long Davis PT Start of Care Date: 01/21/24 [...] : 846 Session Stop Time : 926 MELINDA Del Toro PT documented in this encounterOhiohealth Doctors Hospital04-24-2024 Telephone encounter Note * Telephone Encounter - Alma Smart RN - 02/04/2024 4:55 PM EDT Phoned patient and given provider's message below. Patient didn't understand and asked this nurse to give the message to Peg. Reports Peg works there. Gave message to Peg with verbalized understanding. [facility]04-24-2024 Miscellaneous Notes* Telephone Encounter - Alma [...] Please choose alternative below and send -Basaglar Arabellaikpen -Tresiba -Tresiba flextouch Tonie Escobar MA documented in this encounterOhiohealth Doctors Hospital04-24-2024 Telephone encounter Note * Telephone Encounter - Aleksandar Jones MD - 02/04/2024 4:27 PM EDT Rx sent. Let her know had to change it [facility]04-24-2024 Telephone encounter Note* Telephone Encounter - Tonie Escobar MA - 02/04/2024 2:52 PM EDT Insurance faxed letter stating Lantus Solostar no longer covered . Please choose alternative below and send -Basaglar Kwikpen -Tresiba -Tresiba flextouch Tonie Escobar MA [facility]04-23-2024 History of Present illness Narrative* Long Davis PT - 02/03/2024 9:35 PM EDT Episode Visit Count: 2 Therapist That Will Accept/Oversee The Plan Of Care: Long Davis PT Start of Care Date: 01/21/24 [...] : 1452 Session Stop Time : 1530 Long Davis PT * Long Davis PT - 02/03/2024 3:11 PM EDT Program_ID:[id number] Access Code: [email or web address] URL: [email or web address] Date: 02-03-2024 Prepared By: Long Davis Program Notes Exercises - Hooklying Single [...] sets - 10 reps documented in this encounterOhiohealth Doctors Hospital04-18-2024 Miscellaneous Notes* Telephone Encounter - Alma [...] you. Alma Smart RN. documented in this encounterOhiohealth Doctors Hospital04-10-2024 History of Present illness Narrative* Long Davis, СЕРГЕЙ - 01/21/2024 3:39 PM EDT Images from the original note were not included. Episode Visit Count: 1 Therapist That Will Accept/Oversee The Plan Of Care: Long Davis PT Start of Care Date: 01/21/24 [...] Planned: 12 Planned Treatment Interventions: Therapeutic exercise (08848), Neuromuscular re- education (43038), Manual therapy (78184), Therapeutic activities (79011), Self- shelter management (00479), Gait Training (57473), Patient/Family/Caregiver Education, Body Mechanics Training, General Conditioning, [...] Home Environment Patient Lives With: Facility Care (long-term with 5 other ladies that "stress me [...] : 1045 Session Stop Time : 1135 Long Davis PT * Long Davis PT - 01/21/2024 11:21 AM EDT Program_ID:[id number] Access Code: [email or web address] URL: [email or web address] Date: 01-21-2024 Prepared By: Long Davis Program Notes Exercises - Hooklying Single Knee to Chest Stretch - 3 x daily - 7 x weekly - sets - 3 reps - Supine Double Knee to Chest Modified - 1 x daily - 7 x weekly - sets - 3 reps documented in this encounterOhiohealth Doctors Hospital04-02-2024 Instructions* Patient Instructions* Radha Batista APRN.PBX TEACHER - 01/13/2024 9:45 AM EDT Start the saline spray to the nose twice daily. Stop the meloxicam. Start the celebrex (celecoxib) once daily (for leg pain). Start the docusate twice daily (for constipation). Schedule w/ physical therapy to help with the legs. documented in this encounterOhiohealth Doctors Hospital04-02-2024 History of Present illness Narrative* Radha [...] HISTORY Diagnosis Date Bilateral pneumonia 07/23/2018 Admit [facility]: pneumococcal suspected, neg culture. 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 For 7 nights. Xuhyh-6-WIQ-EPA-Fish Oil (FISH OIL) 300-1,000 mg cap Take [...] Once per day. Lancing Device with Lancets ([employer] DELICA PLUS LANC DEV) Check blood sugars [...] as needed for worsening/no improvement. Radha Batista APRN.PBX TEACHER documented in this encounterOhiohealth Doctors Hospital03-02-2024 Discharge summary Author Jey Quesada [facility] December 13, 2023 11:08pm Note Date/Time December 13, 2023 6:24 pm [facility] Medical Records Department [address] [place] [address] Emergency Department Summary 12/13/23 MR#: [id number] Acct: [id number] Name: BRENDA LE Shawanda Rep #:[id number] : 1965 58 From: Jey Quesada DO [...] include cholecystectomy. No history of bowel obstruction. [facility] Medical History Anxiety and depression COPD (chronic [...] mandibular surgery Social History housing: other details: long-term. Smoking Status: Former smoker how long ago [...] 83.5 H Lymph % (Auto) 8.5 L [place] % (Auto) 7.2 Eos % (Auto) 0.3 [...] Clarity Clear Urine pH 6.0 Ur Specific [place] 1.010 Urine Protein Negative Urine Glucose (UA) [...] Signed: Tj Rosales MD at 22:00 EST , Discharge Plan Triage Chief Complaint: Abd [...] your Primary Care Provider. Call [facility] ([phone]) or report to the closest Emergency Room. Call 911 if necessary. 12/13/232307 <Electronically signed by Jey Quesada DO> Cosigner Signature (if applicable): CC: Dr. Aleksandar Jones MD ~ Signed [facility] Work Phone: 1(647) 861-748702-20-2024 Miscellaneous Notes* Telephone Encounter - Shanell Estes [...] you. Shanell Estes LPN. documented in this encounterOhiohealth Doctors Hospital02-08-2024 Miscellaneous Notes* Telephone Encounter - Edel [...] has any questions. Thank you. Meredith Moore APRN.PBX TEACHER documented in this encounterOhiohealth Doctors Hospital12-11-2023 History of Present illness Narrative* Fuentes Renee MD - 09/22/2023 3:56 PM EST Images from the original note were not included. Fuentes Renee MD Interventional Cardiology [address] [place] [address] Chief Complaint Patient presents with: Established Patient [...] HISTORY Diagnosis Date Bilateral pneumonia 07/23/2018 Admit [facility]: pneumococcal suspected, neg culture. + rhinovirus Constipation [...] bedtime. For 7 nights. 7 Suppository 0 Nqrwa-1-TTA-EPA-Fish Oil (FISH OIL) 300-1,000 mg cap Take [...] 1 capsule by mouth once daily. 30 esuqric10 guaiFENesin (MUCINEX) 600 mg 12 hr tablet [...] bedtime. 10mL 5 Lancing Device with Lancets ([employer] PLUS LANC DEV) Check blood sugars twice [...] to correct any errors. documented in this encounterOhiohealth Doctors Hospital11-29-2023 Miscellaneous Notes* Telephone Encounter - Joselyn [...] and lancets then? * Telephone Encounter - Alma Smart RN - 09/09/2023 4:41 PM EST Fransisca [...] 1119: f: 140, 122, 8 p: 209 20: f: 120, 11 a: 107, 3 p: 125 21: f: 157, 11 a: 196, 3 p: 156, 8 p: 197 22: f: 182, 11 a: 150, 3 p: 161, 8 p: 121 1123: f: 156, 11 a: 101, 3 p: 184, 8 p: 179 1124: f: 164, 12 p: 170, 3 p: 187, 8 p: 248 1125: f: 176, 11 a: 141, 3 p: 145, 8 p: 235 11: f: 155, 11 a: 108, 3 p: [...] 09/09/2023 2:35 PM EST TC to patients case manager specialist, Leola, to question frequency of BG readings. Leola states that Brenda recently had COPD exacerbation and was given prednisone. She believed that's why BG was high, she has been taking regular dose of insulin plus sliding scale. Leola reports patients BG is back to her normal readings. Leola unable to verify frequency of BG monitoring and states Fransisca from group [employer] these and to contact her at [phone] after 4 PM for additional information. CHRIS Antunez * Telephone Encounter - Aleksandar Jones MD - 09/09/2023 1:46 PM EST Can we verify with fpc. I have her being testing two times a day * Telephone Encounter - Yany Richardson - 09/09/2023 1:32 PM EST Brenda is calling Aleksandar Jones MD today [facility] due to she needs our office to call and confirm the diabetic information for the patient. The [facility] told her they are testing the patient 5 times per day. They will need new prescriptions for test stripsand lancets. Please call back. Patient has been identified by name and birthdate. Closing statement: Results or non-symptom based questions: Thank you for calling [facility], your call will be returned within the next business day. Yany Luther Pss documented in this encounterOhiohealth Doctors Hospital11-29-2023 Miscellaneous Notes* Telephone Encounter - Maye Ferrer LPN - 09/10/2023 9:16 AM EST Patient has [...] Value 04/29/2023 114 03/12/2019 Test sent to [facility]. Non HDL Cholesterol (mg/dL) Date Value 08/21/2022 118 07/26/2020 132 Blood Pressure: BUN (mg/dL) Date Value 04/29/2023 14 07/19/2021 8 Sodium (mmol/L) Date Value 04/29/2023 135 07/19/2021 133 Last 1 Encounter BP Readings: Date: BP: 08/29/2023 118/72 Please advise. Thank you. Maye Ferrer LPN. documented in this encounterOhiohealth Doctors Hospital11-20-2023 Miscellaneous Notes* Telephone Encounter - Jade [...] Rogers RN - 09/01/2023 11:06 AM EST [facility] called. Asking if they could replace the Monistat cream to Miconazole 200 mg suppository to meet the needs of the patient. It comes as a 3 day pack. Edilia Rogers RN * Telephone Encounter - Joselyn Haji RN - 09/01/2023 10:53 AM EST cargo station worker notified of information below. Joselyn Haji RN * Telephone Encounter - Alma Ac APRN.CNP - 09/01/2023 10:27 AM EST There is an interaction with the Diflucan and another medication she is on, that's why I didn't order it. Alma Ac APRN.CNP * Telephone Encounter - Joselyn Haji RN - 09/01/2023 9:28 AM EST Patients rooms director called and notified of results and instructions. Leola states the fpc where Brenda lives is not licensed to administer the medication and areonly able to give verbal prompts. Because patient is very cognitively limited is she able to get oral Diflucan instead of vaginal cream? Will need to call [facility] rooms director back. Joselyn Haji RN * Telephone Encounter [...] in. Alma Ac APRN.CNP documented in this encounterOhiohealth Doctors Hospital11-17-2023 History of Present illness Narrative* Alma [...] external genitalia normal, normal Bartholin's glands, urethra, Brocton's glands, no vulvar lesions, no cervical lesions, [...] 1 %-0.05 % TOPICAL CREAM Alma Ac APRN.PBX TEACHER Claims Agent Right Of Way offered: Patient declines. Medical Decision Making: Problems: Low: Acute, uncomplicated illness or injury Data: Unique test(s) ordered: 2 Risk: Low: Low risk from testing/treatment Moderate: Drug management Medical Decision Making Level: 3 - Low documented in this encounterOhiohealth Doctors Hospital11-16-2023 Miscellaneous Notes* Telephone Encounter - Alma Smart RN - 08/28/2023 8:35 AM EST Patient has been identified by name and date of : Yes, Provider [place] [facility] Date 08-28-23 Time 8:36 am Pharmacy phones [...] you. Alma Smart RN. documented in this encounterOhiohealth Doctors Hospital11-09-2023 Miscellaneous Notes* Telephone Encounter - Alma [...] option? If so, please send rx to [facility]. Thank you, Shanell Estes LPN * Telephone [...] option. Brandy Mark LPN documented in this encounterOhiohealth Doctors Hospital11-07-2023 Miscellaneous Notes* Telephone Encounter - Cristal White RN - 08/19/2023 5:55 PM EST Fransisca Pandya Resident Staff at the [facility] called and is notified of providers results and instructions. She voices understanding. Cristal White, JAH * Telephone Encounter - Alma Nuno PA-C [...] EST Fransisca Pandya Resident Staff at the [facility] she reports Pt was in the [...] Please call and advise. documented in this encounterOhiohealth Doctors Hospital11-04-2023 Discharge summary Author Hesham Noguera [facility] August 16, 2023 10:28am Note Date/Time August 16, 2023 1 0:14am [facility] Medical Records Department [address] [place] [address] Discharge Summary 08/16/23 1011 MR#: [id number] Acct: [id number] Name: LEBRENDA Rep #:[id number] : 1965 57 From: Hesham Noguera MD PCP: Dr. Aleksandar Jones MD Status:ADM I N Location: [place] [address] Providers Date of Admission: 08/14/23 Date of Discharge: 08/16/23 Primary Care Physician: Dr. Aleksandar Jones MD [...] (Auto) 81.8 H, Lymph % (Auto) 12.7 L,[place] % (Auto) 4.6, Eos % (Auto) 0.0, [...] Self Care Charges/Coding Visit Charges Inpatient E&M: 95244 Disch Hosp >30min 08/16/23 1028 <Electronically signed by Hesham Noguera MD> Cosigner Signature (if applicable): CC: Dr. Hesham Noguera MD; Dr. Aleksandar Jones MD~ Signed [facility] Work Phone: 1(805) 219-434611-04-2023 Progress note Author Hesham Burnettjaqueline [facility] August 16, 2023 10:11am Note Date/Time August 16, 2023 7 :08am [facility] Medical Records Department [address] [place] [address] Progress Note - Hospitalist 08/16/23 0708 MR#: [id number] Acct: [id number] Name: BRENDA EL Rep #:[id number] : 1965 57 From: Hesham Noguera MD PCP: Dr. Aleksandar Jones MD Status:ADM I N Location: [place] [address] Reason for Visit Reason for Visit: Diagnoses [...] (Auto) 86.8 H, Lymph % (Auto) 11.1 L,[place] % (Auto) 1.6, Eos % (Auto) 0.0, [...] Signed: Shoaib Arnett MD at 8:32 EDT Reading Location ID and State: [facility] / [place] Tel , Service support , Physical Exam Narrative GENERAL: cooperative HEENT: [...] documentation, 40minutes Charges/Coding Visit Charges Inpatient E&M: 37027 Subs Hosp L2 08/16/23 1011 <Electronically signed by Hesham Noguera MD> Cosigner Signature (if applicable): CC: ~ Signed [facility] Work Phone: 1(679) 649-583411-03-2023 Progress note Author Hesham Noguera [facility] August 15, 2023 9:29am Note Date/Time August 15, 2023 7 :27am [facility] Medical Records Department [address] [place] [address] Progress Note - Hospitalist 08/15/23 0727 MR#: [id number] Acct: [id number] Name: BRENDA LE Rep #:[id number] : 1965 57 From: Hesham Noguera MD PCP: Dr. Aleksandar Jones MD Status:ADM I N Location: [place] [address] Reason for Visit Reason for Visit: Diagnoses [...] (Auto) 79.4 H, Lymph % (Auto) 12.3 L,[place] % (Auto) 7.5, Eos % (Auto) 0.0, [...] documentation, 40minutes Charges/Coding Visit Charges Inpatient E&M: 89635 Subs Hosp L2 08/15/23928 <Electronically signed by Hesham Noguera MD> Cosigner Signature (if applicable): CC: ~ Signed [facility] Work Phone: 1(619) 107-928011-03-2023 Progress note Author Amy Moreno [facility] August 15, 2023 6:28am Note Date/Time August 15, 2023 6 :28am [facility] Medical Records Department [address] [place] [address] Progress Note - Hospitalist 08/15/23627 MR#: [id number] Acct: [id number] Name: BRENDA LE Rep #:[id number] : 1965 57 From: Amy Moreno MD PCP: Dr. Aleksandar Jones MD Status:ADM I N Location: [place] [address] Hospitalist Note Resp panel with + rhino. 08/15/23627 <Electronically signed by Amy Moreno MD> Cosigner Signature (if applicable): CC: ~ Signed [facility] Work Phone: 1(874) 379-526811-03-2023 Discharge summary Author Jey Quesada [facility] August 14, 2023 10:27pm Note Date/Time August 14, 2023 6 :16pm [facility] Medical Records Department [address] [place] [address] Emergency Department Summary 08/14/23 MR#: [id number] Acct: [id number] Name: BRENDA LE Rep #:[id number] : 1965 57 From: Jey Quesada DO PCP: Dr. Aleksandar Jones MD Status:ADM I N Location: [place] [address] HPI History of Present Illness Chief Complaint: Shortness of Breath Narrative Narrative: 57-year-old female presenting with shortness of breath. She states has been having fever, chills, body aches, nasal congestion for a couple of days. She states she lives at the [facility]. She is been given ibuprofen. She requestedFlonase but was not given this. Patient states her Tmax was 102. She denies chest pain but is having shortness of breath. Has a history of COPD. [facility] Medical History (Updated 08/14/23 @ 22:16 by [...] Dr. Amy Moreno MD) housing: other details: long-term. Smoking Status: Former smoker how long ago [...] he was tested for COVID at her fpc and was negative. Differential includes COVID-19, influenza, [...] 79.4 H Lymph % (Auto) 12.3 L [place] % (Auto) 7.5 Eos % (Auto) 0.0 [...] Luis Camilo MD at 19:05 EDT , Discharge Plan Triage Chief Complaint: Shortness of Breath ED Provider: Jey Quesada Dx/Rx/DC Orders Primary Care Provider: Aleksandar Jones What to do if you have Problems For any increased pain, shortness of breath, bleeding, nausea or vomiting, chestpain, or any unexpected problems, contact your Primary Care Provider. Call [facility] ([phone]) or report to the closest Emergency Room. Call 911 if necessary. 08/14/232226 <Electronically signed by Jey Quesada DO> Cosigner Signature (if applicable): CC: Dr. Aleksandar Jones MD ~ Signed [facility] Work Phone: 1(207) 711-172011-03-2023 History and physical note Author Amy Moreno [facility] August 14, 2023 10:20pm Note Date/Time August 14, 2023 1 0:20pm [facility] Medical Records Department [address] [place] [address] [id number] H&P Exam - Hospitalist 08/14/232207 MR#: [id number] Acct: [id number] Name: BRENDA LE Rep #:[id number] : 1965 57 From: Amy Moreno MD [...] Tobacco use, Obesity who presents to the [facility] ED on 08/14/23with history of 3 to 4 days of upper respiratory type symptoms including nasal congestion, rhinorrhea in addition to fever, chills, body aches as well as not markedly productive cough with wheezing not improving with worsening dyspnea sensation prompting eventual fpc transition to the ED for evaluation. Patient notes Tmax at her fpc 102. She is unsure if there have been other sick contacts at the fpc. Work-up in the ED included 97.4, heart [...] as patient complaining of significant nasal congestion. [facility] Medical History (Updated 08/14/23 @ 22:[address] Amy Morneo MD) Anxiety and depression COPD (chronic obstructive [...] Dr. Amy Moreno MD) housing: other details: long-term. Smoking Status: Former smoker how long ago [...] (Auto) 79.4 H, Lymph % (Auto) 12.3 L,[place] % (Auto) 7.5, Eos % (Auto) 0.0, [...] Tobacco use, Obesity who presents to the [facility] ED on 08/14/23with history of 3 to 4 days of upper respiratory type symptoms including nasal congestion, rhinorrhea in addition to fever, chills, body aches as well as not markedly productive cough with wheezing not improving with worsening dyspnea sensation prompting eventual fpc transition to the ED for evaluation. #1. [...] Full code. Charges/Coding Visit Charges Inpatient E&M: 33074 Init Hosp L3 08/14/232219 <Electronically signed by Amy Moreno MD> Cosigner Signature (if applicable): CC: Dr. Amy Moreno MD; Dr. Aleksandar Jones MD~ Signed [facility] Work Phone: 1(735) 663-339711-02-2023 Discharge summary Author Jeyhans Quesada [facility] August 14, 2023 10:27pm Note Date/Time August 14, 2023 6 :16pm [facility] Medical Records Department [address] [place] [address] Emergency Department Summary 08/14/23 MR#: [id number] Acct: [id number] Name: BRENDA LE Rep #:[id number] : 1965 57 From: Jey Quesada DO PCP: Dr. Aleksandar Jones MD Status:ADM I N Location: PCU [id number] HPI History of Present Illness Chief Complaint: Shortness of Breath Narrative Narrative: 57-year-old female presenting with shortness of breath. She states has been having fever, chills, body aches, nasal congestion for a couple of days. She states she lives at the fpc. She is been given ibuprofen. She requestedFlonase but was not given this. Patient states her Tmax was 102. She denies chest pain but is having shortness of breath. Has a history of COPD. [facility] Medical History (Updated 08/14/23 @ 22:16 by [...] Dr. Amy Moreno MD) housing: other details: long-term. Smoking Status: Former smoker how long ago [...] he was tested for COVID at her fpc and was negative. Differential includes COVID-19, influenza, [...] 79.4 H Lymph % (Auto) 12.3 L [place] % (Auto) 7.5 Eos % (Auto) 0.0 [...] Luis Camilo MD at 19:05 EDT , Discharge Plan Triage Chief Complaint: Shortness of Breath ED Provider: Jey Quesada Dx/Rx/DC Orders Primary Care Provider: Aleksandar Jones What to do if you have Problems For any increased pain, shortness of breath, bleeding, nausea or vomiting, chestpain, or any unexpected problems, contact your Primary Care Provider. Call [facility] ([phone]) or report to the closest Emergency Room. Call 911 if necessary. 08/14/232226 <Electronically signed by Jey Quesada DO> Cosigner Signature (if applicable): CC: Dr. Aleksandar Jones MD ~ Signed [facility] Work Phone: 1(794) 122-807210-31-2023 Miscellaneous Notes* Telephone Encounter - Anusha Hansen [...] you. Anusha Hansen RN. documented in this encounterOhiohealth Doctors Hospital10-04-2023 Miscellaneous Notes* Telephone Encounter - Loree Chen RN - 07/16/2023 8:25 AM EDT Pharmacy electronically requests the following refill(s) Requested Prescriptions Pending Prescriptions Disp Refills metoprolol succinate ER (TOPROL XL) 25 mg 24 hr tablet [Pharmacy Med Name: Metoprolol Succinate ER 25MG TB24] 90 tablet 3 Sig: take 1 tablet by mouth every evening Loree Chen RN documented in this encounterOhiohealth Doctors Hospital09-06-2023 Miscellaneous Notes* Telephone Encounter - Eunice Spivey RN - 06/18/2023 8:56 AM EDT Last Office Visit: 04/29/2023 Future Office Visit: 10/31/2022 Requested Prescriptions Pending Prescriptions Disp Refills omeprazole (PRILOSEC) 20 mg capsule 30 capsule 5 Sig: Take 1 capsule by mouth daily before breakfast. 1/2 hr before meal. Date of Last Labs: 04/29/2023 documented in this [facility]08-15-2023 Miscellaneous Notes* Telephone Encounter - Shanell Estes LPN - 05/27/2023 10:16 AM EDT [employer] phones requesting refills as follows: Requested Prescriptions Pending Prescriptions Disp Refills pramipexole (MIRAPEX) 0.5 mg tablet 30 tablet 5 Sig: Take 0.5 tablets by mouth daily at bedtime. DEBBY: 04/29/23 NOV: 10/31/23 Shanell Estes LPN documented in this [facility]08-14-2023 Miscellaneous Notes* Telephone Encounter - Nissa Ybarra OCCA - 05/26/2023 2:20 PM EDT TC to both patient and guardian who both verbalized understanding of providers message with no questions at this time. CHRIS Antunez * Telephone Encounter - Nissa Ybarra OCCA - 05/26/2023 2:18 PM EDT ----- Message from Radha Batista APRN.PBX TEACHER sent at 05/26/2023 2:00 PM EDT ----- Can please let patient/caregiver know that her stress testing was negative/normal. Radha Batista APRN.PBX TEACHER documented in this encounterOhiohealth Doctors Hospital08-14-2023 History of Present illness Narrative* Loree [...] Loree Chen RN Reversal agent used:None LOT [id number] EXP 06/13/26 IV SITE: IV palced by nuclear tecnologist POST EXAM PIV STATUS: Discontinued by Archeologist Classical PATIENT DISCHARGED TO: Nuclear Medicine Department for post stress imaging A Diagnostic radioactive procedure has taken place, with no further precautions necessary other than routine body substance precautions. More information regarding radiation safety can be found usingthis link: [email or web address]%20Nuclear%20Medicine%[email or web address] SIGNATURE: Loree Chen RN PATIENT NAME:Brenda Le DATE: 05/26/23 TIME: 12:20 PM documented in this encounterOhiohealth Doctors Hospital08-14-2023 History of Present illness Narrative* Sarina [...] Discontinued PROCEDURE TYPE: NM Stress: 11.8 mCi [id number] was administered IV for Rest Imaging at 07:20 by Sarina Lee. 31.3 mCi [id number] was administered IV for Stress Imaging at 08:31 by Sarina Lee. ADMINISTRATION TIME: PATIENT DISCHARGED TO: Ambulatory patient, left OR department area. A Diagnostic radioactive procedure has taken place, with no further precautions necessary other than routine body substance precautions. More information regarding radiation safety can be found usingthis link: [email or web address] 20Diagnostic%20Nuclear%20Medicine%20Procedures.pdf SIGNATURE: RT Lemuel(R) PATIENT NAME: Brenda Le DATE: May 26, 2023 TIME: 09:40 AM PAGER/CONTACT #: documented in this encounterOhiohealth Doctors Hospital08-11-2023 Miscellaneous Notes* Telephone Encounter - Alma Smart RN - 05/23/2023 4:09 PM EDT [facility] asking pcp to send order for a generic lancet for patient. Reports patient unable touse the one touch lancets with the system she is using now. Pended. Last appt in pcp office: 12-20-22 Next appt: 10-31-23 documented in this encounterOhiohealth Doctors Hospital07-27-2023 Miscellaneous Notes* Telephone Encounter - Nisha Oneill Ma - 05/08/2023 9:48 AM EDT Patient was made aware of the results. Patient verbalizes understanding. Nisha Oneill Ma * Telephone Encounter - Nisha Oneill Ma - 05/08/2023 8:53 AM EDT ----- Message from Radha Batista APRN.PBX TEACHER sent at 05/07/2023 5:32 PM EDT ----- Can please let patient/case manager specialist know that her blood count was improved and stable. Radha Batista APRN.CNP documented in this encounterOhiohealth Doctors Hospital07-18-2023 Instructions* Patient Instructions* Radha Batista APRN.CNP - 04/29/2023 3:22 PM EDT Get the labwork. Get the stool sample for hidden blood. Schedule the stress testing. We'll let you know when I receive the lab results back. documented in this encounterOhiohealth Doctors Hospital07-18-2023 History of Present illness Narrative* Radha Batista APRN.PAVITHRA - 04/29/2023 2:37 PM EDT This is a 57 year old female who presents today with: Patient presents with: 6 Month Exam HISTORY OF PRESENT ILLNESS: Brenda Le is a 57 year old female. Patient presents with: 6 Month Exam Presents today w/ social science professor. Pt presents today for follow-up. Refers that [...] Controlled w/ PPI. Mood: Presents with social science professor. Refers that there has been some medication adjustments by psychiatry. Refers patient refers that she has been hearing more voices. Concern because this could impact her living situation. She has been having some problems with fatigue. cathead worker disclosed that patient is afraid that [...] HISTORY Diagnosis Date Bilateral pneumonia 07/23/2018 Admit [facility]: pneumococcal suspected, neg culture. 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 Lancing Device with Lancets ([employer] PLUS LANC DEV) Check blood sugars twice [...] once daily. Per Dr. Ramirez Comp Stocking,Knee,Regular,[facility] Patient to be measured for correct size. [...] MG/5 ML INTRAVENOUS SYRINGE - INSERT IV ([place]) - IV DISCONTINUE Will also forward note to pt's food critic for review. 2. Weight loss - ICD9: [...] as needed for worsening/no improvement. Radha Batista APRN.PBX TEACHER I spent a total of 50 minutes on the date of the service which included preparing to see the patient, [id number] patient care, completing clinical documentation, obtaining and/or reviewing separately obtained history, performing a medically appropriate examination, counseling and educating the pat ient/family/caregiver, and ordering medications, tests, or procedures. documented in this encounterOhiohealth Doctors Hospital05-17-2023 Miscellaneous Notes* Telephone Encounter - Shanell Estes LPN - 02/26/2023 9:06 AM EDT [employer] phones requesting refills as follows: Requested Prescriptions Pending Prescriptions Disp Refills potassium chloride ER (KLOR-CON) 20 mEq tablet 30 tablet 5 Sig: Take 1 tablet by mouth once daily. DEBBY: 12/20/22 (VV) NOV: 03/12/23 Last Refill: 09/11/22 #30 5 refills Shanell Estes LPN documented in this encounterOhiohealth Doctors Hospital05-05-2023 Miscellaneous Notes* Telephone Encounter - Maye [...] you. Maye Ferrer LPN documented in this encounterOhiohealth Doctors Hospital04-20-2023 Miscellaneous Notes* Telephone Encounter - Anusha [...] you. Anusha Hansen RN documented in this encounterOhiohealth Doctors Hospital02-27-2023 Miscellaneous Notes* Telephone Encounter - M Manuel Smart RN - 12/09/2022 10:11 AM EST [...] you. Alma Smart RN documented in this encounterOhiohealth Doctors Hospital12-27-2022 Miscellaneous Notes* Telephone Encounter - Eunice Spivey RN - 10/08/2022 8:29 AM EST Last Office Visit: 08/28/2022 Future Office Visit: 03/12/2023 Requested Prescriptions Pending Prescriptions Disp Refills insulin needles, DISPOSABLE, (PEN NEEDLE) 31 gauge x 5/16" 100 Each 11 Sig: Use one needle per dose. Once per day. Date of Last Labs: 08/21/2022 documented in this encounterOhiohealth Doctors Hospital12-23-2022 Miscellaneous Notes* Telephone Encounter - Shanell [...] and advise. Shanell Zuniga documented in this [facility]11-30-2022 Miscellaneous Notes* Telephone Encounter - Shanell Estes LPN - 09/11/2022 2:26 PM EST [facility] calling for refills DEBBY: 08/28/22 NOV: 03/12/23 Last Refill: [place] 10/09/21 #30 11 refills Vit D3 10/09/21 #30 11 refills Potassium chl: 03/27/22 #30 5 refills Shanell Estes LPN documented in this encounterOhiohealth Doctors Hospital11-18-2022 Miscellaneous Notes* Telephone Encounter - Maye Nabil CANO - 08/30/2022 4:42 PM EST Patient has [...] you. Maye Ferrer LPN documented in this encounterOhiohealth Doctors Hospital11-16-2022 Instructions* Patient Instructions* Radha Batista APRN.PAVITHRA - 08/28/2022 2:39 PM EST Continue same medications. Try holding milk products for a week and see if that helps. Try the eye gel at night. Start the metronidazole cream. You can try the tylenol/ibuprofen as needed for back pain. Also can try some heat and massage. Labs and recheck in 6 months. documented in this encounterOhiohealth Doctors Hospital11-16-2022 History of Present illness Narrative* Radha [...] HISTORY Diagnosis Date Bilateral pneumonia 07/23/2018 Admit [facility]: pneumococcal suspected, neg culture. 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 Per Dr. James Izquierdo Stockmukesh,Knee,Regular,Med [facility] [place] [place] Patient to be measured for correct size. [...] improvement. Radha Batista APRN.PAVITHRA documented in this encounterOhiohealth Doctors Hospital11-07-2022 Miscellaneous Notes* Telephone Encounter - Brandy Mark LPN - 08/19/2022 4:17 PM EST Patient has been identified by name and date of : Yes Pharmacy phones for refill(s): Requested Prescriptions Pending Prescriptions Disp Refills Lancing Device with Lancets (ZeusControlsTOUCH DELICA PLUS LANC DEV) 100 Each 5 [...] you. Brandy Mark LPN documented in this encounterOhiohealth Doctors Hospital11-03-2022 Miscellaneous Notes* Telephone Encounter - Keila Ca Pss - 08/15/2022 9:54 AM EDT Patient has [...] and advise. Keila Zuniga documented in this encounterOhiohealth Doctors Hospital11-01-2022 Miscellaneous Notes* Telephone Encounter - Zaira Humphreys LPN - 08/13/2022 10:00 AM EDT Patient's request for medication is as follows: Requested Prescriptions Pending Prescriptions Disp Refills metoprolol succinate ER (TOPROL XL) 25 mg 24 hr tablet [Pharmacy Med Name: Metoprolol Succinate ER 25MG TB24] 90 tablet 3 Sig: TAKE 1 TABLET BY MOUTH EVERY EVENING Last seen 06/03/2022 in [facility]. Follow up scheduled for 06/02/2023. Prescription(s) as above. Please process accordingly. Zaira Humphreys LPN documented in this encounterOhiohealth Doctors Hospital10-27-2022 Instructions* Patient Instructions* Zaira Mancilla APRN.PBX TEACHER - 08/08/2022 1:55 PM EDT [facility] [address] [place], [place] [address] Emergency Department Diagnosis: Assessment CELLULITIS: Your exam [...] you are not current with your inmunizations.CONJUNCTIVITIS ([facility]) BASIC INFORMATION DESCRIPTION: An inflammation of [...] drops. -Do not share eyeliners, and discard fredy after 4-6 months. TREATMENT: GENERAL MEASURES: -Treatment [...] virus or allergy. At this point, an skewer up may need to culture the cause or [...] increase -Vision is affected. documented in this encounterOhiohealth Doctors Hospital10-27-2022 History of Present illness Narrative* Zaira [...] to 4 months. Patient resides in a fpc, ROS and HPI limited related to cognitive. Information supplemented by tubular splitting machine tender of fpc. The history is provided by the patient and a caregiver. The history is limited by a developmental delay. No school speech language pathologist was used. Eye Problem This is a [...] HISTORY Diagnosis Date Bilateral pneumonia 07/23/2018 Admit [facility]: pneumococcal suspected, neg culture. 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 Per Dr. James Chambers,Knee,Regular,[facility] Patient to be measured for correct size. [...] days Zaira Mancilla APRN.CNP documented in this encounterOhiohealth Doctors Hospital09-23-2022 Instructions* Patient Instructions* Zaira Mancilla APRN.CNP - 07/05/2022 1:15 PM EDT Keep the area free of further injury Topical antibiotic ointment Follow up with podiatry to have toenails clipped. documented in this encounterOhiohealth Doctors Hospital09-23-2022 History of Present illness Narrative* Zaira Mancilla APRN.CNP - 07/05/2022 1:06 PM EDT Images from the original note were not included. This note was created using [employer]. Subjective Brenda Le is a 56 year [...] Presents today with an aid from her fpc " concerns for it being infected" Denies pain. Denies numbness or tingling Sees Dr. Salmon for podiatry at [place], fpc tried to call today, but they are closed. The history is provided by the patient. No school speech language pathologist was used. Pain (foot) Pain location: right [...] HISTORY Diagnosis Date Bilateral pneumonia 07/23/2018 Admit [facility]: pneumococcal suspected, neg culture. 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 20- 30 mmHg Dx: I50.31 COMPOUNDED PRESCRIPTION BIPAP of 12/8 on 3L oxygen per Dr. Ramirez blood [...] mouth once daily. Lancing Device with Lancets ([employer] DELICA PLUS LANC DEV) Check blood sugars [...] be seen by Dr. Cintron. Zaira Mancilla APRN.PAVITHRA documented in this encounterOhiohealth Doctors Hospital09-08-2022 Miscellaneous Notes* Telephone Encounter - Cristal White RN - 06/20/2022 1:28 PM EDT Patient has been identified by name and date of : Yes Pharmacy phones for refill(s): Requested Prescriptions Pending Prescriptions Disp Refills pramipexole (MIRAPEX) 0.5 mg tablet 30 tablet 5 Sig: Take 0.5 tablets by mouth daily at bedtime. Date of last office visit in primary care: 6/15/22 Future visit: 07/18/22 Last 2 Encounter Wt [...] you. Cristal White RN documented in this encounterOhiohealth Doctors Hospital07-27-2022 Miscellaneous Notes* Telephone Encounter - Alma Smart RN - 05/08/2022 9:45 AM EDT [facility] reports the hospital in [place] only prescribed a month supply of the pended medications. Reports when the hospital sent Rx's for the month supply, it cancelled out pcp's Rx's. Will need new Rx's. Note: miralax was changed to packets and instructions state daily. Ferrous gluconate was changed toFerrous sulfate. [facility] asking to please send omar, so patient will have to take tomorrow. documented in this encounterOhiohealth Doctors Hospital07-26-2022 Miscellaneous Notes* Telephone Encounter - Frank Joya LPN - 05/07/2022 2:30 PM EDT [facility] notified. Frank Joya LPN * Telephone Encounter - Aleksandar Jones MD - 05/07/2022 1:43 PM EDT Continue meds. * Telephone Encounter - Chiara Suárez LPN - 05/07/2022 1:33 PM EDT Patient was released 04/16/2022 from [facility], Dr. Kessler called in RX Metformin 500mg, 2tablets BID & Ferrous Sulfate 325mg, 1 tablet once daily. [facility] is asking if Dr. Jones wants Patient to continue taking Metformin & Ferrous Sulfate. Please advise. Chiara Suárez LPN documented in this encounterOhiohealth Doctors Hospital07-21-2022 Miscellaneous Notes* Telephone Encounter - Adrianne Saldivar LPN - 05/02/2022 9:46 AM EDT Called pharmacy and had tech check profile. They do have refill on metformin and iron. Confirmed with her these were not new orders. * Telephone Encounter - Kelsy Herrera Pss - 05/02/2022 9:28 AM EDT [facility] pharmacy calling stating patient was in [facility] and has been starteed o nthe follow medications. Please call in the following prescriptions: Atorvastatin 10 mg one tablet at bedtime Iron 325 mg one tablet twice daily Metformin 500 mg two tablets twice daily Patient uses pharmacy on file. documented in this encounterOhiohealth Doctors Hospital06-15-2022 Miscellaneous Notes* Telephone Encounter - Татьяна Escobar Ma - 03/27/2022 3:07 PM EDT Last office visit: appt today with Radha Carter/ligia scheduled: 07/18/22 Татьяна Escobar Ma * Telephone [...] notify patient. Chica Todd documented in this encounterOhiohealth Doctors Hospital06-15-2022 Instructions* Patient Instructions* Radha Batista APRN.CNP - 03/27/2022 2:34 PM EDT 1. Apply the triamcinolone ointment twice daily to the irritated skin from the cpap straps. Leave open to air during the day. In the evening, use guaze between face and cpap straps until healed. 2. Notify provider if no better or any worsening. documented in this encounterOhiohealth Doctors Hospital06-15-2022 History of Present illness Narrative* Radha [...] HISTORY Diagnosis Date Bilateral pneumonia 07/23/2018 Admit [facility]: pneumococcal suspected, neg culture. 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 Radha Batista APRN.PAVITHRA documented in this encounterOhiohealth Doctors Hospital04-20-2022 Instructions* Patient Instructions* Radha Batista APRN.CNP - 01/30/2022 1:40 PM EDT 1. Moist heat/ice to the affected area, as discussed. 2. Ibuprofen 200-400 mg every 8 hours as needed for pain. 3. Stretching and massage, as discussed. 4. Let us know if no better or any worsening. documented in this encounterOhiohealth Doctors Hospital04-20-2022 History of Present illness Narrative* Radha [...] HISTORY Diagnosis Date Bilateral pneumonia 07/23/2018 Admit [facility]: pneumococcal suspected, neg culture. + rhinovirus Constipation [...] take as directed. Lancing Device with Lancets ([employer] DELICA PLUS LANC DEV) Check blood sugars [...] Wt 85.6 kg (188 lb 12.8 oz) [facility] 09/12/2017 BMI 35.67 kg/m PHYSICAL EXAM: General [...] plan. This note was partially generated using B[employer]Agent voice recognition system. Note was reviewed for accuracy. There may be minor misspellings or grammar miscues with BzzAgent voice recognition. documented in this encounterOhiohealth Doctors Hospital04-19-2022 Miscellaneous Notes* Telephone Encounter - Frank Joya LPN - 01/29/2022 1:00 PM EDT Yolie notified, appt scheduled. Frank Joya LPN * Telephone Encounter - Radha Batista APRN.CNP - 01/29/2022 12:29 PM EDT Needs an appointment to have back pain evaluated. Radha Batista APRN.CNP * Telephone Encounter - Brandy Mark LPN - 01/29/2022 10:11 AM EDT Yolie, case liner/social science professor for [facility] calling and states that pt is having muscle/sciatic pain. Pt lives in a fpc. This pain is upsetting, agitating an working on pt's mental health. Pt was on Tylenol but was discontinued due to fatty liver. Yolie is requesting something pt can take for the above pain, [id number] be sent to [facility] if possible. Even though OTC they would still need to have a prescription sent. Yolie will be calling back later to schedule an apt for pt. Please advise Yolie. Brandy Mark LPN documented in this encounterOhiohealth Doctors Hospital04-04-2022 History of Present illness Narrative* Aleksandar Jones MD - 01/14/2022 3:21 PM EDT Patient presents with: 6 Month Exam HPI: Patient presents today for office visit for follow up. Accompanies by her case manager specialist. Seeing psych. Recently saw cardiology for tachycardia. [...] take as directed. Lancing Device with Lancets ([employer] DEL[employer]inema[employer] PLUS LANC DEV) Check blood sugars twice [...] HISTORY Diagnosis Date Bilateral pneumonia 07/23/2018 Admit [facility]: pneumococcal suspected, neg culture. + rhinovirus Constipation COPD (chronic obstructive pulmonary disease) ([facility]) Diabetes 1.5, managed as type 2 ([facility]) found at [facility], pt was on metformin for a while but taken off - pt never told if she had DM or not Major depressive disorder, recurrent episode, unspecified (HCC) Nonspecific elevation of levels of transaminase or lactic acid dehydrogenase (LDH) LIDA (obstructive sleep apnea) Pneumonia Schizophreniform disorder, chronic condition ([facility]) Simple endometrial hyperplasia without atypia mirena IUD [...] - sees podiatry regularly, Dr. Salmon in [place]. Saw in August LUNG CANCER SCREENING-will check [...] follow with cardiology. 2. SVT (supraventricular tachycardia) ([facility]) - ICD9: 427.89, ICD10: I47.1 - as above. 3. Acute diastolic CHF (congestive heart failure) ([facility]) - ICD9: 428.31, 428.0, ICD10: I50.31 - no signs currently. 4. Chronic obstructive pulmonary disease, unspecified COPD type ([facility]) - ICD9: 496, ICD10: J44.9 - per Dr. Ramirez. 5. LIDA (obstructive sleep apnea) - ICD9: 327.23, ICD10: G47.33 - wearing her cpap 6. Water intoxication - ICD9: 276.69, ICD10: E87.79 - will follow. - BASIC METABOLIC PNL 7. Type 2 diabetes mellitus with diabetic nephropathy, with long-term current use of insulin ([facility]) - ICD9: 250.40, 583.81, V58.67, ICD10: E11.21, Z79.4 Controlled. - Continue current medications - HGB A1C - LIPID PANEL BASIC - ALBUMIN/CREAT RATIO RND UR - VITAMIN D 25 HYDROXY 8. Schizophreniform disorder, chronic condition ([facility]) - ICD9: 295.42, ICD10: F20.81 - per [facility] 9. Vitamin D deficiency - ICD9: 268.9, ICD10: E55.9 - will follow. 10. Advance care planning - ICD9: V65.49, ICD10: Z71.89 - done. Aleksandar Jones RTO in six months and prn. documented in this encounterOhiohealth Doctors Hospital04-04-2022 Miscellaneous Notes* Telephone Encounter - Maye Ferrer LPN - 01/14/2022 10:09 AM EDT Patient has [...] you. Maye Ferrer LPN documented in this encounterOhiohealth Doctors Hospital04-01-2022 Miscellaneous Notes* Telephone Encounter - Alma Manuel Smart RN - 01/11/2022 1:53 PM EDT [...] you. Alma Smart RN documented in this encounterOhiohealth Doctors Hospital10-07-2021 History of Present illness Narrative* Neelima [...] 19, 2021 3:05 PM documented in this encounterOhiohealth Doctors Hospital08-09-2021 History of Past illness Narrative* Problem [...] check Routine gynecological examination 08/29/2009 11/26/2011 Overview: [facility], [facility] DM w/o Complication Type II 11/08/200802/10 Other abnormal glucose 8 Overview: found at [facility], pt was on metformin for a while but taken off - pt never told if she had DM or not A1c 6.5% as of documented as of this encounter (statuses as of 01/14/2022) [facility] of Past illness Narrative* Problem [...] check Routine gynecological examination 08/29/2009 11/26/2011 Overview: [facility], [facility] DM w/o Complication Type II 11/08/200802/10 Other abnormal glucose 8 Overview: found at [facility], pt was on metformin for a while but taken off - pt never told if she had DM or not A1c 6.5% as of documented as of this encounter (statuses as of 01/29/2022) [facility] of Past illness Narrative* Problem [...] examination 08/29/2009 11/26/2011 Overview: [facility] DM w/o Complication Type II 11/08/200802/10 Other abnormal glucose 8 Overview: found at [facility], pt was on metformin for a while but taken off - pt never told if she had DM or not A1c 6.5% as of documented as of this encounter (statuses as of 01/30/2022) [facility] of Past illness Narrative* Problem [...] check Routine gynecological examination 08/29/2009 11/26/2011 Overview: [facility], [facility] DM w/o Complication Type II 11/08/200802/10 Other abnormal glucose 8 Overview: found at [facility], pt was on metformin for a while but taken off - pt never told if she had DM or not A1c 6.5% as of documented as of this encounter (statuses as of 03/27/2022) [facility] History of Past illness Narrative* Problem [...] check Routine gynecological examination 08/29/2009 11/26/2011 Overview: [facility], [facility] w/o Complication Type II 11/08/200802/10 Other abnormal glucose 8 Overview: found at [facility], pt was on metformin for a while but taken off - pt never told if she had DM or not A1c 6.5% as of documented as of this encounter (statuses as of 05/02/2022) [facility] of Past illness Narrative* Problem [...] check Routine gynecological examination 08/29/2009 11/26/2011 Overview: [facility] DM w/o Complication Type II 11/08/200802/10 Other abnormal glucose 8 Overview: found at [facility], pt was on metformin for a while but taken off - pt never told if she had DM or not A1c 6.5% as of documented as of this encounter (statuses as of 05/07/2022) [facility] of Past illness Narrative* Problem [...] check Routine gynecological examination 08/29/2009 11/26/2011 Overview: [facility], [facility] w/o Complication Type II 11/08/200802/10 Other abnormal glucose 8 Overview: found at [facility], pt was on metformin for a while but taken off - pt never told if she had DM or not A1c 6.5% as of documented as of this encounter (statuses as of 05/08/2022) [facility] of Past illness Narrative* Problem [...] check Routine gynecological examination 08/29/2009 11/26/2011 Overview: [facility], [facility] w/o Complication Type II 11/08/200802/10 Other abnormal glucose 8 Overview: found at [facility], pt was on metformin for a while but taken off - pt never told if she had DM or not A1c 6.5% as of documented as of this encounter (statuses as of 06/20/2022) [facility] of Past illness Narrative* Problem [...] check Routine gynecological examination 08/29/2009 11/26/2011 Overview: [facility], [facility] DM w/o Complication Type II 11/08/200802/10 Other abnormal glucose 8 Overview: found at [facility], pt was on metformin for a while but taken off - pt never told if she had DM or not A1c 6.5% as of documented as of this encounter (statuses as of 07/05/2022) [facility] of Past illness Narrative* Problem [...] check Routine gynecological examination 08/29/2009 11/26/2011 Overview: [facility], [facility] DM w/o Complication Type II 11/08/200802/10 Other abnormal glucose 8 Overview: found at [facility], pt was on metformin for a while but taken off - pt never told if she had DM or not A1c 6.5% as of documented as of this encounter (statuses as of 08/08/2022) [facility] of Past illness Narrative* Problem [...] check Routine gynecological examination 08/29/2009 11/26/2011 Overview: [facility], [facility] w/o Complication Type II 11/08/200802/10 Other abnormal glucose 8 Overview: found at [facility], pt was on metformin for a while but taken off - pt never told if she had DM or not A1c 6.5% as of documented as of this encounter (statuses as of 08/12/2022) [facility] of Past illness Narrative* Problem [...] check Routine gynecological examination 08/29/2009 11/26/2011 Overview: [facility], [facility] DM w/o Complication Type II 11/08/200802/10 Other abnormal glucose 8 Overview: found at [facility], pt was on metformin for a while but taken off - pt never told if she had DM or not A1c 6.5% as of documented as of this encounter (statuses as of 08/15/2022) [facility] of Past illness Narrative* Problem [...] check Routine gynecological examination 08/29/2009 11/26/2011 Overview: [facility], [facility] DM w/o Complication Type II 11/08/200802/10 Other abnormal glucose 8 Overview: found at [facility], pt was on metformin for a while but taken off - pt never told if she had DM or not A1c 6.5% as of documented as of this encounter (statuses as of 08/15/2022) [facility] of Past [facility] Narrative* Problem [...] Routine gynecological examination 08/29/2009 11/26/2011 Overview: [facility], [facility] DM w/o Complication Type II 11/08/200802/10 Other abnormal glucose 8 [facility]: [facility], pt was on metformin for a while but taken off - pt never told if she had DM or not A1c 6.5% as of documented as of this encounter (statuses as of 08/19/2022) [facility] Narrative* Problem [...] check Routine gynecological examination 08/29/2009 11/26/2011 Overview: [facility], [facility] w/o Complication Type II 11/08/200802/10 Other abnormal glucose 8 Overview: found at [facility], pt was on metformin for a while but taken off - pt never told if she had DM or not A1c 6.5% as of documented as of this encounter (statuses as of 08/29/2022) [facility] of [facility] illness Narrative* Problem [...] check Routine gynecological examination 08/29/2009 11/26/2011 Overview: [facility], [facility] DM w/o Complication Type II 11/08/200802/10 Other abnormal glucose 8 Overview: [facility], pt was on metformin for a while but taken off - pt never told if she had DM or not A1c 6.5% as of documented as of this encounter (statuses as of 08/30/2022) [facility] of [facility] Narrative* Problem [...] Routine gynecological examination 08/29/2009 11/26/2011 Overview: [facility], [facility] DM w/o Complication Type II 11/08/200802/10 Other abnormal glucose 8 Overview: found at [facility], pt was on metformin for a while but taken off - pt never told if she had DM or not A1c 6.5% as of documented as of this encounter (statuses as of 09/11/2022) [facility] Narrative* Problem [...] check Routine gynecological examination 08/29/2009 11/26/2011 Overview: [facility], [facility] DM w/o Complication Type II 11/08/200802/10 Other abnormal glucose 8 Overview: found at [facility], pt was on metformin for a while but taken off - pt never told if she had DM or not A1c 6.5% as of documented as of this encounter (statuses as of 10/06/2022) [facility] Narrative* Problem [...] check Routine gynecological examination 08/29/2009 11/26/2011 Overview: [facility], [facility] DM w/o Complication Type II 11/08/200802/10 Other abnormal glucose 8 Overview: [facility] at [facility], pt was on metformin for a while but taken off - pt never told if she had DM or not A1c 6.5% as of documented as of this encounter (statuses as of 10/13/2022) [facility] Narrative* Problem [...] 08/29/2009 11/26/2011 Overview: [facility], [facility] DM w/o Complication Type II 11/08/200802/10 Other abnormal glucose 8 Overview: found at [facility], pt was on metformin for a while but taken off - pt never told if she had DM or not A1c 6.5% as of documented as of this encounter (statuses as of 12/09/2022) [facility] Narrative* Problem [...] check Routine gynecological examination 08/29/2009 11/26/2011 Overview: [facility], [facility] DM w/o Complication Type II 11/08/200802/10 Other abnormal glucose 8 Overview: found at [facility], pt was on metformin for a while but taken off - pt never told if she had DM or not A1c 6.5% as of documented as of this encounter (statuses as of 01/30/2023) [facility] Narrative* Problem [...] check Routine gynecological examination 08/29/2009 11/26/2011 Overview: [facility], [facility] DM w/o Complication Type II 11/08/200802/10 Other abnormal glucose 8 Overview: found at [facility], pt was on metformin for a while but taken off - pt never told if she had DM or not A1c 6.5% as of documented as of this encounter (statuses as of 02/14/2023) [facility] Narrative* Problem [...] examination 08/29/2009 11/26/2011 Overview: [facility] DM w/o Complication Type II 11/08/200802/10 Other abnormal glucose 8 Overview: found at [facility], pt was on metformin for a while but taken off - pt never told if she had DM or not A1c 6.5% as of documented as of this encounter (statuses as of 02/26/2023) [facility] Narrative* Problem [...] check Routine gynecological examination 08/29/2009 11/26/2011 Overview: [facility], [facility] DM w/o Complication Type II 11/08/2008 02/22/2014 Other abnormal glucose 04/29 Overview: found at [facility], pt was on metformin for a while but taken off - pt never told if she had DM or not A1c 6.5% as of documented as of this encounter (statuses as of 04/30/2023) [facility] Narrative* Problem [...] check Routine gynecological examination 08/29/2009 11/26/2011 Overview: [facility], [facility] w/o Complication Type II 11/08/2008 02/22/2014 Other abnormal glucose 04/29 Overview: found at [facility], pt was on metformin for a while but taken off - pt never told if she had DM or not A1c 6.5% as of documented as of this encounter (statuses as of 05/08/2023) [facility] Narrative* Problem [...] check Routine gynecological examination 08/29/2009 11/26/2011 Overview: [facility], [facility] DM w/o Complication Type II 11/08/2008 02/22/2014 Other abnormal glucose 04/29 Overview: found at [facility], pt was on metformin for a while but taken off - pt never told if she had DM or not A1c 6.5% as of documented as of this encounter (statuses as of 05/24/2023) [facility] Narrative* Problem [...] check Routine gynecological examination 08/29/2009 11/26/2011 Overview: [facility], [facility] w/o Complication Type II 11/08/2008 02/22/2014 Other abnormal glucose 04/29 Overview: found at [facility], pt was on metformin for a while but taken off - pt never told if she had DM or not A1c 6.5% as of documented as of this encounter (statuses as of 05/26/2023) [facility] Narrative* Problem [...] check Routine gynecological examination 08/29/2009 11/26/2011 Overview: [facility], [facility] w/o Complication Type II 11/08/2008 02/22/2014 Other abnormal glucose 04/29 Overview: found at [facility], pt was on metformin for a while but taken off - pt never told if she had DM or not A1c 6.5% as of documented as of this encounter (statuses as of 05/27/2023) [facility] Narrative* Problem [...] check Routine gynecological examination 08/29/2009 11/26/2011 Overview: [facility], [facility] DM w/o Complication Type II 11/08/2008 02/22/2014 Other abnormal glucose 04/29 Overview: found at [facility], pt was on metformin for a while but taken off - pt never told if she had DM or not A1c 6.5% as of documented as of this encounter (statuses as of 05/28/2023) [facility] Narrative* Problem [...] check Routine gynecological examination 08/29/2009 11/26/2011 Overview: [facility], [facility] w/o Complication Type II 11/08/2008 02/22/2014 Other abnormal glucose 04/29 Overview: found at [facility], pt was on metformin for a while but taken off - pt never told if she had DM or not A1c 6.5% as of documented as of this encounter (statuses as of 06/18/2023) [facility] Narrative* Problem [...] Routine gynecological examination 08/29/2009 11/26/2011 Overview: [facility] DM w/o Complication Type II 11/08/2008 02/22/2014 Other abnormal glucose 04/29 Overview: [facility] at [facility], pt was on metformin for a while but taken off - pt never told if she had DM or not A1c 6.5% as of documented as of this encounter (statuses as of 07/17/2023) [facility] Narrative* Problem [...] check Routine gynecological examination 08/29/2009 11/26/2011 Overview: [facility], [facility] DM w/o Complication Type II 11/08/2008 02/22/2014 Other abnormal glucose 04/29 Overview: found at [facility], pt was on metformin for a while but taken off - pt never told if she had DM or not A1c 6.5% as of documented as of this encounter (statuses as of 07/21/2023) [facility] Narrative* Problem [...] check Routine gynecological examination 08/29/2009 11/26/2011 Overview: [facility], [facility] DM w/o Complication Type II 11/08/2008 02/22/2014 Other abnormal glucose 04/29 Overview: found at [facility], pt was on metformin for a while but taken off - pt never told if she had DM or not A1c 6.5% as of documented as of this encounter (statuses as of 08/12/2023) [facility] Narrative* Problem [...] check Routine gynecological examination 08/29/2009 11/26/2011 Overview: [facility], [facility] DM w/o Complication Type II 11/08/2008 02/22/2014 Other abnormal glucose 04/29 Overview: found at [facility], pt was on metformin for a while but taken off - pt never told if she had DM or not A1c 6.5% as of documented as of this encounter (statuses as of 08/16/2023) [facility]arrative* Problem [...] check Routine gynecological examination 08/29/2009 11/26/2011 Overview: [facility], [facility] DM w/o Complication Type II 11/08/2008 02/22/2014 Other abnormal glucose 04/29 Overview: found at [facility], pt was on metformin for a while but taken off - pt never told if she had DM or not A1c 6.5% as of documented as of this encounter (statuses as of 08/20/2023) [facility] Narrative* Problem [...] check Routine gynecological examination 08/29/2009 11/26/2011 Overview: [facility], [facility] DM w/o Complication Type II 11/08/2008 02/22/2014 Other abnormal glucose 04/29 Overview: found at [facility], pt was on metformin for a while but taken off - pt never told if she had DM or not A1c 6.5% as of documented as of this encounter (statuses as of 08/21/2023) [facility] Narrative* Problem [...] gynecological examination 08/29/2009 11/26/2011 Overview: [facility], [facility] w/o Complication Type II 11/08/2008 02/22/2014 Other abnormal glucose 04/29 Overview: [facility] at [facility], pt was on metformin for a while but taken off - pt never told if she had DM or not A1c 6.5% as of documented as of this encounter (statuses as of 08/28/2023) [facility] Narrative* Problem [...] check Routine gynecological examination 08/29/2009 11/26/2011 Overview: [facility], [facility] DM w/o Complication Type II 11/08/2008 02/22/2014 Other abnormal glucose 04/29 Overview: found at [facility], pt was on metformin for a while but taken off - pt never told if she had DM or not A1c 6.5% as of documented as of this encounter (statuses as of 08/29/2023) [facility] Narrative* Problem [...] check Routine gynecological examination 08/29/2009 11/26/2011 Overview: [facility], [facility] DM w/o Complication Type II 11/08/2008 02/22/2014 Other abnormal glucose 04/29 Overview: found at [facility], pt was on metformin for a while but taken off - pt never told if she had DM or not A1c 6.5% as of documented as of this encounter (statuses as of 09/01/2023) [facility] Narrative* Problem [...] check Routine gynecological examination 08/29/2009 11/26/2011 Overview: [facility], [facility] DM w/o Complication Type II 11/08/2008 02/22/2014 Other abnormal glucose 04/29 Overview: found at [facility], pt was on metformin for a while but taken off - pt never told if she had DM or not A1c 6.5% as of documented as of this encounter (statuses as of 09/10/2023) [facility] History of Past illness Narrative* Problem [...] check Routine gynecological examination 08/29/2009 11/26/2011 Overview: [facility], [facility] DM w/o Complication Type II 11/08/2008 02/22/2014 Other abnormal glucose 04/29 Overview: found at [facility], pt was on metformin for a while but taken off - pt never told if she had DM or not A1c 6.5% as of documented as of this encounter (statuses as of 09/10/2023) [facility] History of Past illness Narrative* Problem [...] check Routine gynecological examination 08/29/2009 11/26/2011 Overview: [facility], [facility] DM w/o Complication Type II 11/08/2008 02/22/2014 Other abnormal glucose 04/29 Overview: found at [facility], pt was on metformin for a while but taken off - pt never told if she had DM or not A1c 6.5% as of documented as of this encounter (statuses as of 09/23/2023) [facility] History of Past illness Narrative* Problem [...] Routine gynecological examination 08/29/2009 11/26/2011 Overview: [facility] w/o Complication Type II 11/08/2008 02/22/2014 Other abnormal glucose 04/29 Overview: [facility], pt was on metformin for a while but taken off - pt never told if she had DM or not A1c 6.5% as of documented as of this encounter (statuses as of 11/20/2023) [facility] History of Past illness Narrative* Problem [...] check Routine gynecological examination 08/29/2009 11/26/2011 Overview: [facility], [facility] DM w/o Complication Type II 11/08/2008 02/22/2014 Other abnormal glucose 04/29 Overview: found at [facility], pt was on metformin for a while but taken off - pt never told if she had DM or not A1c 6.5% as of documented as of this encounter (statuses as of 12/02/2023) [facility] History of Past illness Narrative* Problem [...] check Routine gynecological examination 08/29/2009 11/26/2011 Overview: [facility], [facility] DM w/o Complication Type II 11/08/2008 02/22/2014 Other abnormal glucose 04/29 Overview: found at [facility], pt was on metformin for a while but taken off - pt never told if she had DM or not A1c 6.5% as of documented as of this encounter (statuses as of 01/14/2024) [facility] History of Past illness Narrative* Problem [...] check Routine gynecological examination 08/29/2009 11/26/2011 Overview: [facility], [facility] DM w/o Complication Type II 11/08/2008 02/22/2014 Other abnormal glucose 04/29 Overview: found at [facility], pt was on metformin for a while but taken off - pt never told if she had DM or not A1c 6.5% as of documented as of this encounter (statuses as of 01/22/2024) [facility] History of Past illness Narrative* Problem [...] check Routine gynecological examination 08/29/2009 11/26/2011 Overview: [facility], [facility] DM w/o Complication Type II 11/08/2008 02/22/2014 Other abnormal glucose 04/29 Overview: found at [facility], pt was on metformin for a while but taken off - pt never told if she had DM or not A1c 6.5% as of documented as of this encounter (statuses as of 01/30/2024) [facility]01-06[facility]21 History of Present illness Narrative* Neelima Amador (Rt), Nancy - 10/18/2020 9:50 AM EST Radiology Service [...] 18, 2020 9:54 AM [facility] of Past illness Narrative* Problem [...] Other abnormal glucose 8 Overview: found at [facility], pt was on metformin for a while but taken off - pt never told if she had DM or not A1c 6.5% as of documented as of this encounter (statuses as of 01/11/2022) [facility] History of Past illness Narrative* Problem Noted Date Resolved Date Pneumonia of both upper lobes due to infectious organism 08/06/2018 08/06/2018 Type 2 diabetes mellitus with renal manifestatio ns 10/29/2013 11/07/2017 Tobacco abuse 09/07/2012 11/07/2016 Routine general medical exam ination at a health care facility 08/29/2009 11/26/2011 Overview: 08/29/2009, from [facility]ojcie[facility] Quintanilla 05/03/2011, yearly check Routine gynecological examination 08/29/2009 11/26/2011 Overview: [facility], [facility] DM w/o Complication Type II 11/08/200802/10 Other abnormal glucose 8 Overview: found at [facility], pt was on metformin for a while but taken off - pt never told if she had DM or not A1c 6.5% as of documented as of this encounter (statuses as of 01/14/2022) [facility] Babak Garcia [facility] Note Date/Time December 21, 2024 12: 14pm [facility] Medical Records Department [address] [place] [address] Emergency Department Summary 12/21/24 MR#: [id number] Acct: [id number] Name: BRENDA LE Shawanda Rep #:[id number] : 1965 59 From: Babak Garcia DO PCP: 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 Patient states that she has been wheezing a lot lately. Per EMS they did not give any breathing treatments as her lungs were clear for them. [facility] Medical History Obesity (BMI 30-39.9) Hyponatremia Leukocytosis [...] 325 mg tablet,delayed 325 mg PO DAILY@1600 [facility] 07/22/18 07/30/21 History release omeprazole 20 [...] of cholecystectomy Social History housing: other details: long-term. Smoking Status: Former smoker how long ago [...] H Lymph % (Auto) Cancelled 8.6 L [place] % (Auto) Cancelled 4.7 Eos % (Auto) [...] Drop Cells Cancelled Ovalocytes Cancelled Stomatocytes Cancelled Mtz-Lesslie Bodies Cancelled Sara Cells Cancelled Bite Cells Cancelled Crenated Cell [...] Clarity Clear Urine pH 6.5 Ur Specific [place] 1.010 Urine Protein 15 H Urine Glucose [...] (Auto) Neut % (Auto) Lymph % (Auto) [place] % (Auto) Eos % (Auto) Baso % [...] Target Cells Tear Drop Cells Ovalocytes Stomatocytes Mtz-Lesslie Bodies Sara Cells Bite Cells Crenated Cell [...] Color Urine Clarity Urine pH Ur Specific [place] Urine Protein Urine Glucose (UA) Urine Ketones Urine Occult Blood Urine Nitrite Urine Bilirubin Urine Urobilinogen Ur Leukocyte Esterase Urine RBC Urine WBC Ur Squamous Epith Cells Urine Bacteria Urine Mucus Radiography Diagnostic Testing: Clinical Impression(s) from Imaging Studies Chest X-Ray 12/21/24 08:48 IMPRESSION: Pulmonary venous congestion. Reading Location: [facility] Discharge Plan Triage Chief Complaint: Shortness of Breath ED Provider: Babak Garcia Dx/Rx/DC Orders Clinical Impression: COPD exacerbation, [...] Care Provider: Shelia Salmon Referrals: Shelia Salmon, DENTAL MOLD MAKER [Primary Care Provider] - Activity Restrictions/Additional Instructions: You tested positive for COVID-19 here in the emergency department. Start the steroid that was sent to your pharmacy tomorrow as you were given a dose here today already. Use Zofran as needed for nausea. Ensure adequate hydration. Return with worsening symptoms or any concerns. Follow-up with your doctor in outpatient setting. Print Language: Angolan Disposition Disposition: Home, Self Care What to do if you have Problems For any increased pain, shortness of breath, bleeding, nausea or vomiting, chestpain, or any unexpected problems, contact your Primary Care Provider. Call [facility] ([phone]) or report to the closest Emergency Room. Call 911 if necessary. 12/21/24 1214 <Electronically signed by Babak Garcia DO> Jpigner Signature (if applicable): CC: ESEQUIEL ArmendarizSheliacam Salmon ~ Signed [facility] Work Phone: Evaluation noteNo assessment information available [facility] Work Phone: Evaluation note* Diagnosis Chronic constipation Unspecified constipation [facility]* Diagnosis Chronic idiopathic constipation Unspecified constipation Iron deficiency anemia, unspecified iron deficiency anemia type documented in this encounter [facility] note* Diagnosis Tachycardia- Primary Tachycardia, unspecified SVT (supraventricular tachycardia) ([facility]) Other specified cardiac dysrhythmias Acute diastolic CHF (congestive heart failure) ([facility]) Acute diastolic heart failure Chronic obstructive pulmonary disease, unspecified COPD type ([facility]) LIDA (obstructive sleep apnea) Obstructive sleep apnea (adult) (pediatric) Water intoxication Other fluid overload Type 2 diabetes mellitus with diabetic nephropathy, with long-term current use of insulin ([facility]) Schizophreniform disorder, chronic condition (HCC) Schizophreniform disorder, chronic condition Vitamin D deficiency Unspecified vitamin D deficiency Advance care planning Other specified counseling [facility] Diagnosis Right hip pain- Primary Pain in joint, pelvic region and thigh [facility] Diagnosis Skin irritation- Primary Unspecified disorder of skin and subcutaneous tissue Rosacea [facility]* Diagnosis Chronic constipation Unspecified constipation [facility]* Diagnosis Restless leg syndrome Restless legs syndrome (RLS) documented [facility]* Diagnosis Injury of toenail of right foot, initial encounter- Primary [facility]* Diagnosis Conjunctivitis of left eye, unspecified conjunctivitis type- Primary Facial infection Other specified infectious and parasitic diseases documented in this encounter [facility]* Diagnosis Encounter for screening mammogram for breast cancer [facility] Diagnosis GERD without esophagitis Esophageal reflux Epigastric pain Abdominal pain, epigastric [facility]* Diagnosis Type 2 diabetes mellitus with diabetic nephropathy, with long-term current use of insulin (HCC)- Primary Schizophreniform disorder, chronic condition (HCC) Schizophreniform disorder, chronic condition Hyperlipidemia, unspecified hyperlipidemia type LIDA (obstructive sleep apnea) Obstructive sleep apnea (adult) (pediatric) Rosacea Upper back pain Gassiness Flatulence, eructation, and gas pain documented in this encounter [facility] note* Diagnosis Hyperlipidemia, unspecified hyperlipidemia type documented in this encounter [facility] note* Diagnosis Type 2 diabetes mellitus with diabetic nephropathy, with long-term current use of insulin ([facility]) documented in this encounter [facility] note* Diagnosis GERD without esophagitis Esophageal reflux Epigastric pain Abdominal pain, epigastric documented in this encounter [facility] note* Diagnosis COVID-19 documented in this encounter [facility] note* Diagnosis Chest pain, unspecified type- Primary Weight loss Loss of weight Type 2 diabetes mellitus with diabetic nephropathy, with long-term current use of insulin (HCC) Hyperlipidemia, unspecified hyperlipidemia type GERD without esophagitis Esophageal reflux Acute diastolic CHF (congestive heart failure) (HCC) Acute diastolic heart failure Schizophreniform disorder, chronic condition (HCC) Schizophreniform disorder, chronic condition Fatigue, unspecified type documented in this encounter [facility] note* Diagnosis Tachycardia- Primary Tachycardia, unspecified documented in this encounter [facility]* Diagnosis Restless leg syndrome Restless legs syndrome (RLS) documented in this encounter [facility]* Diagnosis Encounter for screening mammogram for breast cancer documented in this encounter [facility] note* Diagnosis Hyperlipidemia, unspecified hyperlipidemia type documented in this encounter [facility]* Diagnosis Onset Date Resolution Status COPD exacerbation chronic [facility] Work Phone: Evaluation note* Diagnosis Type 2 diabetes mellitus with diabetic nephropathy, with long-term current use of insulin ([facility]) [facility]* Diagnosis Itching in the vaginal area- Primary Pruritus of genital organs documented in this encounter [facility]* Diagnosis Type 2 diabetes mellitus with diabetic nephropathy, with long-term current use of insulin ([facility])- Primary documented in this encounter [facility]* Diagnosis Onset Date Resolution Status COPD exacerbation resolved [facility] Work Phone: Evaluation note* Diagnosis Primary hypertension- Primary Unspecified essential hypertension Pure hypercholesterolemia SVT (supraventricular tachycardia) Other specified cardiac dysrhythmias [facility]* Diagnosis Pain in both lower extremities GERD without esophagitis Esophageal reflux Epigastric pain Abdominal pain, epigastric [facility] Acute constipation- Primary Unspecified constipation Nasal dryness Other diseases of nasal cavity and sinuses Pain in both lower extremities Leg weakness, bilateral Other musculoskeletal symptoms referable to limbs Sedative, hypnotic or anxiolytic dependence, uncomplicated (HCC) Acute respiratory failure with hypoxia (HCC) Acute respiratory failure Chronic obstructive pulmonary disease, unspecified COPD type ([facility]) SVT (supraventricular tachycardia) ([facility]) Other specified cardiac dysrhythmias [facility]* Diagnosis Leg weakness, bilateral Other musculoskeletal symptoms referable to limbs [facility] Diagnosis Leg weakness, bilateral- Primary Other musculoskeletal symptoms referable to limbs [facility]* Diagnosis Type 2 diabetes mellitus with diabetic nephropathy, with long-term current use of insulin (HCC)- Primary [facility]* Diagnosis Leg weakness, bilateral- Primary Other musculoskeletal symptoms referable to limbs [facility] Diagnosis Leg weakness, bilateral- Primary Other musculoskeletal symptoms referable to limbs [facility]* Diagnosis Leg weakness, bilateral- Primary Other musculoskeletal symptoms referable to limbs [facility]* Diagnosis Leg weakness, bilateral- Primary Other musculoskeletal symptoms referable to limbs [facility]* Diagnosis Leg weakness, bilateral- Primary Other musculoskeletal symptoms referable to limbs [facility]* Diagnosis Leg weakness, bilateral- Primary Other musculoskeletal symptoms referable to limbs Weakness of both lower extremities [facility]* Diagnosis Fatigue, unspecified type- Primary Pain in both lower extremities Type 2 diabetes mellitus with diabetic nephropathy, with long-term current use of insulin (HCC) [facility] Diagnosis Weakness of both lower extremities- Primary [facility] Diagnosis Type 2 diabetes mellitus with diabetic nephropathy, with long-term current use of insulin (HCC)- Primary Thrombocytopenia (HCC) Thrombocytopenia, unspecified Elevated liver enzymes Other nonspecific abnormal serum enzyme levels [facility]* Diagnosis Weakness of both lower extremities- Primary [facility]* Diagnosis Weakness of both lower extremities- Primary Leg weakness, bilateral Other musculoskeletal symptoms referable to limbs [facility]* Diagnosis Uncontrolled type 2 diabetes mellitus with hyperglycemia (HCC)- Primary Thrombocytopenia (HCC) Thrombocytopenia, unspecified Elevated liver enzymes Other nonspecific abnormal serum enzyme levels [facility]* Diagnosis Uncontrolled type 2 diabetes mellitus with hyperglycemia (HCC) [facility]* Diagnosis Weakness of both lower extremities- Primary [facility]* Diagnosis Weakness of both lower extremities- Primary [facility]* Diagnosis Weakness of both lower extremities- Primary [facility]* Diagnosis Uncontrolled type 2 diabetes mellitus with hyperglycemia (HCC)- Primary [facility]* Diagnosis Weakness of both lower extremities- Primary [facility]* Diagnosis Folliculitis- Primary Other specified disease of hair and hair follicles Fatigue, unspecified type [facility]* Diagnosis Restless leg syndrome Restless legs syndrome (RLS) [facility]* Diagnosis GERD without esophagitis Esophageal reflux Epigastric pain Abdominal pain, epigastric [facility]* Diagnosis Uncontrolled type 2 diabetes mellitus with hyperglycemia (HCC) [facility]* Diagnosis Acute constipation Unspecified constipation [facility]* Diagnosis Encounter for screening mammogram for breast cancer [facility]* Diagnosis Uncontrolled type 2 diabetes mellitus [...] deficiency Pure hypercholesterolemia [facility]* Diagnosis Hyperlipidemia, unspecified hyperlipidemia type [facility]* Diagnosis Behavioral change Unspecified disturbance of conduct Altered mental status, unspecified altered mental status type [facility]* Diagnosis SOB (shortness of breath) Shortness of breath Cough documented [facility]* Diagnosis Pain of right eye- Primary Pain in or around eye documented [facility]* Diagnosis Acute diastolic CHF (congestive heart failure) ([facility]) Acute diastolic heart failure [facility]* Diagnosis LIDA (obstructive sleep apnea)- Primary Obstructive sleep apnea (adult) (pediatric) Acute exacerbation of chronic obstructive pulmonary disease (COPD) ([facility]) Obstructive chronic bronchitis with exacerbation Tachycardia Tachycardia, unspecified Tinea cruris Dermatophytosis of groin and perianal area documented [facility]* Diagnosis Uncontrolled type 2 diabetes mellitus with hyperglycemia ([facility]) [facility]* Diagnosis Chronic obstructive pulmonary disease, unspecified COPD type (HCC)- Primary Leg pain, bilateral Pain in limb Encounter for immunization Need for other specified prophylactic vaccination against single bacterial disease [facility]* Diagnosis Primary hypertension- Primary Unspecified essential hypertension Pure hypercholesterolemia SVT (supraventricular tachycardia) ([facility]) Other specified cardiac dysrhythmias Tachycardia Tachycardia, unspecified [facility]* Diagnosis Nasal dryness Other diseases of nasal cavity and sinuses [facility]* Diagnosis Leg pain, bilateral- Primary Pain in limb documented [facility]* Diagnosis Leg pain, bilateral Pain in limb GERD without esophagitis Esophageal reflux Epigastric pain Abdominal pain, epigastric [facility]* Diagnosis Weakness of both lower extremities- Primary Uncontrolled type 2 diabetes mellitus with hyperglycemia ([facility]) Hyperlipidemia, unspecified hyperlipidemia type Leg pain, bilateral Pain in limb Weakness of both lower extremities [facility]* Diagnosis Weakness of both lower extremities [facility] Diagnosis Hyponatremia- Primary Hyposmolality and/or hyponatremia Leg pain, bilateral Pain in limb [facility]* Diagnosis Pneumonia of right lung due to infectious organism, unspecified part of lung- Primary Fever, unspecified fever cause Acute cough URI, acute Acute upper respiratory infections of unspecified site Acute cough documented [facility]* Diagnosis Acute cough [facility]* Diagnosis Acute constipation Unspecified constipation documented in this encounter [facility]* Diagnosis Leg pain, bilateral- Primary Pain in limb Bacterial pneumonia Bacterial pneumonia, unspecified Bacterial pneumonia Bacterial pneumonia, unspecified documented in this encounter [facility]* Diagnosis Bacterial pneumonia Bacterial pneumonia, unspecified documented in this encounter [facility] note* Diagnosis Leg pain, bilateral Pain in limb documented in this encounter [facility]* Diagnosis COVID- Primary Acute diastolic CHF [...] disorder, chronic condition documented in this encounter [facility]* Diagnosis Leg pain, bilateral Pain in limb documented in this encounter [facility] note* Diagnosis Exposure to hepatitis B- Primary Contact with or exposure to other viral diseases documented in this encounter [facility] note* Diagnosis Hyponatremia- Primary Hyposmolality and/or hyponatremia Leukocytosis, unspecified type documented in this encounter [facility] note* Diagnosis False-positive serological test result [R76.8]- Primary documented in this encounter [facility] note* Diagnosis Hyponatremia- Primary Hyposmolality and/or hyponatremia documented in this encounter [facility] note* Diagnosis Tobacco abuse Tobacco use disorder [facility] Diagnosis Hepatitis B core antibody positive- Primary Other and unspecified nonspecific immunological findings documented in this encounter [facility] note* Diagnosis Water intoxication- Primary Other fluid [...] of insulin (HCC) documented in this encounter [facility] note* Diagnosis Liver function test abnormality- Primary Other abnormal blood chemistry Acute diastolic CHF (congestive heart failure) (HCC) Acute diastolic heart failure documented in this encounter [facility]* Diagnosis Elevated liver enzymes- Primary Other nonspecific abnormal serum enzyme levels Hepatitis B core antibody positive Other and unspecified nonspecific immunological findings documented in this encounter [facility] note* Diagnosis Liver function test abnormality- Primary Other abnormal blood chemistry Hyponatremia Hyposmolality and/or hyponatremia documented in this encounter [facility] note* Diagnosis Elevated liver enzymes Other nonspecific abnormal serum enzyme levels documented in this encounter [facility] note* Diagnosis Encounter for screening mammogram for breast cancer documented in this encounter [facility]* Diagnosis Leg pain, bilateral Pain in limb documented in this encounter [facility] note* Diagnosis Leg pain, bilateral Pain in limb documented in this encounter [facility]* Diagnosis Cough, unspecified type documented in this encounter [facility]* Diagnosis Hyponatremia- Primary Hyposmolality and/or hyponatremia Water intoxication Other fluid overload Type 2 diabetes mellitus with diabetic nephropathy, with long-term current use of insulin (HCC) Leukocytosis, unspecified type Pure hypercholesterolemia GERD without esophagitis Esophageal reflux Schizophreniform disorder, chronic condition (HCC) Schizophreniform disorder, chronic condition Chronic obstructive pulmonary disease, unspecified COPD type (HCC) LIDA (obstructive sleep apnea) Obstructive sleep apnea (adult) (pediatric) Cough, unspecified type Hepatitis B core antibody positive Other and unspecified nonspecific immunological findings History of CHF (congestive heart failure) Personal history of other diseases of circulatory system Cough, unspecified type documented in this encounter [facility]* Diagnosis Primary hypertension- Primary Unspecified essential hypertension SVT (supraventricular tachycardia) (HCC) Other specified cardiac dysrhythmias documented in this encounter [facility] note* Diagnosis Onset Date Resolution Status Admit Date Constipation noneactive May 10, 2 025 12:24pm [facility] Work Phone: History and physical note Author Amy Moreno [facility] August 14, 2023 10:20pm Note Date/Time August 14, 2023 1 0:20pm [facility] Medical Records Department [address] [place] [address] H&P Exam - Hospitalist 08/14/238 MR#: [id number] Acct: [id number] Name: BRENDA LE Rep #:[id number] : 1965 57 From: Amy Moreno MD [...] Tobacco use, Obesity who presents to the [facility] ED on 08/14/23with history of 3 to 4 days of upper respiratory type symptoms including nasal congestion, rhinorrhea in addition to fever, chills, body aches as well as not markedly productive cough with wheezing not improving with worsening dyspnea sensation prompting eventual fpc transition to the ED for evaluation. Patient notes Tmax at her fpc 102. She is unsure if there have been other sick contacts at the fpc. Work-up in the ED included 97.4, heart [...] as patient complaining of significant nasal congestion. [facility] Medical History (Updated 08/14/23 @ 22:16 by [...] Dr. Amy Moreno MD) housing: other details: long-term. Smoking Status: Former smoker how long ago [...] (Auto) 79.4 H, Lymph % (Auto) 12.3 L,[place] % (Auto) 7.5, Eos % (Auto) 0.0, [...] Tobacco use, Obesity who presents to the [facility] ED on 08/14/23with history of 3 to 4 days of upper respiratory type symptoms including nasal congestion, rhinorrhea in addition to fever, chills, body aches as well as not markedly productive cough with wheezing not improving with worsening dyspnea sensation prompting eventual fpc transition to the ED for evaluation. #1. [...] Full code. Charges/Coding Visit Charges Inpatient E&M: 48081 Init Hosp L3 08/14/232219 <Electronically signed by Amy Moreno MD> Cosigner Signature (if applicable): CC: Dr. Amy Moreno MD; Dr. Aleksandar Jones MD~ Signed [facility] Work Phone: Hospital Discharge instructions Additional Instructions You tested positive for COVID-19 here in the emergency department. Start the steroid that was sent to your pharmacy tomorrow as you were given a dose here today already. Use Zofran as needed for nausea. Ensure adequate hydration. Return with worsening symptoms or any concerns. Follow-up with your doctor in outpatient setting.[facility] Work Phone: Reason for referral (narrative)* Diagnostic Procedure Only (Routine) - Pending Review Specialty Diagnoses / Procedures Referred By Jenny cotter Referred To Contact [facility] Diagnoses Encounter for screening mammogram for breast cancer Procedures FRANNY SCREENING SCREENING MAMMOGRAPHY BI 2-VIEW BREAST INC CAD Aleksandar Jones MD [address] [place] [address] [place] [phone] Referral ID Status Reason Start Date Expiration Date Visits Requested Visits Authorized [id number] Pending Review Auto-Generat ed Referral 2 09/06/[address] [facility] for referral (narrative)* Diagnostic Procedure Only (Routine) - Pending Review Specialty Diagnoses / Procedures Referred By Jenny cotter Referred To Contact [facility] FUN[facility]AL [facility]ING Diagnoses Chest pain, unspecified type Procedures NM CARDIAC PERF STRESS/PHARM MYOCARDIAL SPECT MULTIPLE STUDIES Radha Batista, MANAGER REGIONAL.PBX TEACHER [address] [place] [address] [facility] [address] [id number] Referral ID Status Reason Start Date Expiration Date Visits Requested Visits Authorized [id number] Pending Review Auto-Generat ed Referral 04/29/2023 05/28/2024 1 1 * Outpatient Procedure (Routine) - Closed Specialty Diagnoses / Procedures Referred By Jenny t Referred To Contact [facility] Diagnoses Chest pain, unspecified type Procedures ECG COMPLETE ECG ROUTINE ECG W/LEAST 12 LDS W/I&R Radha Batista APRN.CNP [address] [place] [address] [facility] [place] [address] [place] [address] Referral ID Status Reason Start Date Expiration Date V isits Requested Visits Authorized [id number] Closed Auto-Generate d Referral 04/29/2023 04/28/[address] [facility] for referral (narrative)* Diagnostic Procedure Only (Routine) - Pending Review Specialty Diagnoses / Procedures Referred By Jenny t Referred To Contact [facility] Diagnoses Encounter for screening mammogram for breast cancer Procedures FRANNY SCREENING SCREENING MAMMOGRAPHY BI 2-VIEW BREAST INC CAD Aleksandar Jones MD [address] [place] [address] [facility] [address] [place] [phone] Referral ID Status Reason Start Date Expiration Date Visits Requested Visits Authorized [id number] Pending Review Auto-Generat ed Referral 07/16/2023 08/14/[address] [facility] for referral (narrative)* Diagnostic Procedure Only (Routine) - New Request Specialty Diagnoses / Procedures Referred By Contac t Referred To Contact [facility] Diagnoses Encounter for screening mammogram for breast cancer Procedures FRANNY SCREENING W AUGUSTO SCREENING DIGITAL BREAST TOMOSYNTHESIS BI SCREENING MAMMOGRAPHY BI 2-VIEW BREAST INC CAD Aleksandar Jones MD [address] [place] [address] [facility] [address] [place] [phone] Referral ID Status Reason Start Date Expiration Date Visits Requested Visits Authorized [id number] New Request Auto-Generat ed Referral 06/23/2024 07/23/[address] [facility] for referral (narrative)* Outpatient Procedure (Routine) - New Request Specialty Diagnoses / Procedures Referred By Jenny cotter Referred To Contact [facility] [place] Diagnoses Primary hypertension Pure hypercholesterolemia SVT (supraventricular tachycardia) (HCC) Tachycardia Procedures ECG COMPLETE ECG ROUTINE ECG W/LEAST 12 LDS W/I&R Fuentes Renee MD [address], [address] [place] [address] [facility] [address] [address] Referral ID Status Reason Start Date Expiration Date Visits Requested Visits Authorized [id number] New Request Auto-Generat ed Referral 09/20/2024 09/20/[address] [facility] for referral (narrative)* Outpatient Procedure (Routine) - Authorized Specialty Diagnoses / Procedures Referred By Jenny cotter Referred To Contact [facility] [place] Diagnoses Weakness of both lower extremities Procedures PVR ANK PRESS ASHELY VAS LAB NON-INVAS PHYSIOLOGIC STD EXTREMITY ART 2 LEVEL Radha Batista, ADIEL.PBX TEACHER [address] [place] [address] [address] Referral ID Status Reason Start Date Expiration Date Visits Requested Visits Authorized [id number] Authorized Auto-Generat ed Referral 11/02/2024 11/02/2025 1 1 * Diagnostic Procedure Only (Routine) - Closed Specialty Diagnoses / Procedures Referred By Contac t Referred To Contact [facility] IMAGING Diagnoses Weakness of both lower extremities Procedures XR LUMBAR GENERAL 3V AP/LAT/L5-S1 RADEX SPINE LUMBOSACRAL 2/3 VIEWS Radha Batista APRN.PBX TEACHER [address] [place] [address] [place] [address] Referral ID Status Reason Start Date Expiration Date V isits Requested Visits Authorized [id number] Closed Auto-Generate d Referral 11/02/2024 12/02/[address] [facility] for referral (narrative)* Diagnostic Procedure Only (Routine) - Closed Specialty Diagnoses / Procedures Referred By Contac t Referred To Contact [facility] Diagnoses Weakness of both lower extremities Procedures XR LUMBAR GENERAL 3V AP/LAT/L5-S1 RADEX SPINE LUMBOSACRAL 2/3 VIEWS Radha Batista APRN.PBX TEACHER [address] [place] [address] [place] [address] Referral ID Status Reason Start Date Expiration Date V isits Requested Visits Authorized [id number] Closed Auto-Generate d Referral 11/02/2024 12/02/[address] [facility] for referral (narrative)No reason for referral information availableWCleveland Clinic [facility] Work Phone: Reason for visit Narrative* Diagnostic Procedure Only (Routine) - Closed Specialty Diagnoses / Procedures Referred By Contac t Referred To Contact [facility] Diagnoses Chest pain, unspecified type Procedures NM CARDIAC PERF STRESS/PHARM MYOCARDIAL SPECT MULTIPLE STUDIES Radha Batista APRN.PBX TEACHER [address] [place] [address] Molecular [facility] [address] [place] [address] Referral ID Status Reason Start Date Expiration Date V isits Requested Visits Authorized [id number] Closed Auto-Generate d Referral 05/15/2023 10/12/[address] [facility] for visit Narrative* Diagnostic Procedure Only (Routine) - Closed Specialty Diagnoses / Procedures Referred By Jenny cotter Referred To Contact XR IMAGING Diagnoses Weakness of both lower extremities Procedures XR LUMBAR GENERAL 3V AP/LAT/L5-S1 RADEX SPINE LUMBOSACRAL 2/3 VIEWS Radha Batista APRN.PAVITHRA [address] [place] [address] [place] [address] Referral ID Status Reason Start Date Expiration Date V isits Requested Visits Authorized [id number] Closed Auto-Generate d Referral 11/02/2024 12/02/[address] [facility] for visit Narrative* Diagnostic Procedure Only (Routine) - Closed Specialty Diagnoses / Procedures Referred By Jenny cotter Referred To Contact [facility] Diagnoses Encounter for screening mammogram for breast cancer Procedures FRANNY SCREENING W AUGUSTO SCREENING DIGITAL BREAST TOMOSYNTHESIS BI SCREENING MAMMOGRAPHY BI 2-VIEW BREAST INC CAD Aleksandar Jones MD [address] [place] [address] Phone: tel: fax: [facility] [address] [place] [address] Referral ID Status Reason Start Date Expiration Date V isits Requested Visits Authorized [id number] Closed Auto-Generate d Referral 06/23/2024 07/23/2025 1 1 [facility] Summary Purpose Family History No Family History Records Found Relationship Condition Age at Onset Recorded Date/T [...] Unk nown Malignant neoplasm Unknown Advance Directives No Advanced Directives Records Found Advance Directive Response Recorded Date/ Time Advance Directives No July 26, 2015 12:08pm Living Will No July 30 4:52pm Power of Coat Check Attendant No July 30, 2021 4:52pm Documents on File Type Date Recorded Patient Engineer Station Mainline Expl anation Advance Directive(s) 12/04/2016 3:21 PM Advance Directive(s) 01/11/2009 10:19 PM Advance Directive(s) 12/06/2008 4:00 PM Advance Directive Response Recorded Date/ Time Advance Directives No July 26, 2015 12:08pm Living Will No April 09, 2022 3:50pm Power of Coat Check Attendant No April 09 3:50pm Advance Directive Response Recorded Date/ Time Advance Directives No July 26, 2015 12:08pm Living Will No June 05 3:59pm Power of Coat Check Attendant No June 05, 022 3:59pm Documents on File Type Date Recorded Patient Engineer Station Mainline Expl anation Advance Directive(s) 01/11/2009 10:19 PM Advance Directive(s) 12/06/2008 4:00 PM Documents on File Type Date Recorded Patient Engineer Station Mainline Expl anation Advance Directive(s) 01/11/2009 10:19 PM Advance Directive(s) 12/06/2008 4:00 PM Advance Directive Response Recorded Date/ Time Advance Directives No July 26, 2015 11:08am Living Will No June 05 2:59pm Power of Coat Check Attendant No June 05, 022 2:59pm Advance Directive Response Recorded Date/ Time Advance Directives No July 26, 2015 12:08pm Living Will No August 14 5:05pm Power of Coat Check Attendant No August 14, 2023 5:05pm Advance Directive Response Recorded Date/ Time Name of Medical Power of Coat Check Attendant Melonycindy Willard August 15, 2023 12:13am Advance Directives No July 26, 2015 12:08pm Living Will No August 15 12:13am Power of Coat Check Attendant Yes August 15, 2023 12:13am Advance Directive Response Recorded Date/ Time Name of Medical Power of Coat Check Attendant Melony Shell August 14, 2023 11:13pm Advance Directives No July 26, 2015 11:08am Living Will No August 14 11:13pm Power of Coat Check Attendant Yes August 14, 2023 11:13pm Advance Directive Response Recorded Date/ Time Name of Medical Power of Coat Check Attendant Melony Willard August 14, 2023 11:13pm Advance Directives No July 26, 2015 11:08am Living Will No December 13, 2023 6:19pm Power of Coat Check Attendant No December 12 6:19pm Advance Directive Response Recorded Date/ Time Advance Directives No July 26, 2015 12:08pm Living Will No December 13, 2023 7:19pm Power of Coat Check Attendant No December 12 7:19pm Advance Directive Response Recorded Date/ Time Living Will No September 12 12:34am Power of Coat Check Attendant No September 12, 2024 12:34am Living Will No October 13 5:23am Power of Coat Check Attendant No October 13 5:23am Living Will No October 14 4:06pm Power of Coat Check Attendant No October 14 4:06pm Living Will No December 13, 2023 7:19pm Power of Coat Check Attendant No December 12 7:19pm Living Will No November 10 1:40am Power of Coat Check Attendant No November 10, 2024 1:40am Living Will No November 13 2:33am Power of Coat Check Attendant No November 13, 2024 2:33am Living Will No December 21, 2024 8:47am Power of Coat Check Attendant No December 21 8:47am Advance Directives No July 26, 2015 12:08pm Advance Directive Response Recorded Date/ Time Living Will No September 12 12:34am Do you have a Healthcare Power of Coat Check Attendant? No September 12, 2024 12:34am Living Will No October 13 5:23am Do you have a Healthcare Power of Coat Check Attendant? No October 13, 2024 5:23am Living Will No October 14 4:06pm Do you have a Healthcare Power of Coat Check Attendant? No October 14, 2024 4:06pm Living Will No December 11, 2024 5:48am Do you have a Healthcare Power of Coat Check Attendant? No December 11, 2024 5:48am Living Will No November 10 1:40am Do you have a Healthcare Power of Coat Check Attendant? No November 10, 2024 1:40am Living Will No November 13 2:33am Do you have a Healthcare Power of Coat Check Attendant? No November 13, 2024 2:33am Living Will No December 21, 2024 8:47am Do you have a Healthcare Power of Coat Check Attendant? No December 21, 2024 8:47am Advance Directives No July 26, 2015 12:08pm Advance Directive Response Recorded Date/ Time Living Will No December 11, 2024 5:48am Do you have a Healthcare Power of Coat Check Attendant? No December 11, 2024 5:48am Living Will No January 10, 2025 10:11pm Do you have a Healthcare Power of Coat Check Attendant? No January 10, 2025 10:11pm Living Will No November 13 2:33am Do you have a Healthcare Power of Coat Check Attendant? No November 13, 2024 2:33am Living Will No December 21, 2024 8:47am Do you have a Healthcare Power of Coat Check Attendant? No December 21, 2024 8:47am Advance Directives No July 26, 2015 12:08pm Advance Directive Response Recorded Date/ Time Living Will No January 10, 2025 10:11pm Do you have a Healthcare Power of Coat Check Attendant? No January 10, 2025 10:11pm Advance Directives No July 26, 2015 12:08pm [...] 2am S/O January 04, 2025 2:5 6pm Chief Complaint Admit Date S/O December 08, 2024 1:08pm sob December 21, 2024 8:4 2am S/O January 04, 2025 2:5 6pm S/O February 02, 2025 2:1 7pm CUSTODIAL LAB WORK March 01, 2025 7:0 5am Chief Complaint Admit Date S/O February 02, 2025 2:1 7pm CUSTODIAL LAB WORK March 01, 2025 7:0 5am CUSTODIAL LAB WORK March 28, 2025 5: 00am CUSTODIAL LAB WORK April 11, 2025 10 :00am NICOTINE DEPENDENCE May 06, 2025 12:4 8pm Constipation May 10, 2025 12:2 4pm Reason for Visit Admit Date Constipation May 10, 2025 12:2 4pm Chief Complaint Admit Date S/O February 02, 2025 2:1 7pm CUSTODIAL LAB WORK March 01, 2025 7:0 5am CUSTODIAL LAB WORK March 28, 2025 5: 00am CUSTODIAL LAB WORK April 11, 2025 10 :00am CUSTODIAL LAB WORK April 26, 2025 7: 45am NICOTINE DEPENDENCE May 06, 2025 12:4 8pm Constipation May 10, 2025 12:2 4pm Reason for Visit Admit Date Abdominal pain May 10, 2025 12:2 4pm Nausea May 10, 2025 12:2 4pm Constipation May 10, 2025 12:2 4pm Reason for Referral Specialty Diagnoses / Procedures Referred By Contac t Referred To Contact Podiatry Diagnoses Injury of toenail of right foot, initial encounter Procedures CONSULT TO PODIATRY OFFICE/OUTPATIENT NEW HIGH MDM 60-74 MINUTES Zaira Mancilla APRN.PBX TEACHER [address] [place] [address] Referral ID Status Reason Start Date Expiration Date Visits Requested Visits Authorized [id number] Authorized PCP Requested Referral 07/05/2022 07/05/2023 1 1 Specialty Diagnoses / Procedures Referred By Contac t Referred To Contact [facility] Diagnoses Leg weakness, bilateral Procedures CONSULT TO PHYSICAL THERAPY PHYSICAL THERAPY EVALUATION HIGH COMPLEX 45 MINS Radha Batista APRN.PBX TEACHER [address] [place] [address] [facility] [place] [address] [place] [address] Referral ID Status Reason Start Date Expiration Date Visits Requested Visits Authorized [id number] Pending Review PCP Requested Referral Auto-Generate d Referral 01/13/2024 01/12/2025 99 99 Additional Source Comments INFORMATION SOURCE (unrecogn ized section and content) DATE CREATED AUTHOR 04/03/2018 [facility] DATE CREATED AUTHOR AUTHOR'S ORGANIZ ATION 07/21/2021 [facility] DATE CREATED AUTHOR AUTHOR'S ORGANIZ ATION 05/13/2025 [facility] DATE CREATED AUTHOR AUTHOR'S ORGANIZ ATION 05/14/2025 [facility] Goals (unrecognized section and content) Goals [...] or prosecute any alcohol or drug abuse patient.[facility] the event this information is protected by the Federal Confidentiality of Alcohol and Drug Abuse Patient Records regulations: The Federal rules restrict any use of the information to criminally investigate or prosecute any alcohol or drug abuse patient.[facility] Hospital[facility] the event this information is protected by the Federal Confidentiality of Alcohol and Drug Abuse Patient Records regulations: The Federal rules restrict any use of the information to criminally investigate or prosecute any alcohol or drug abuse patient.[facility] Hospital[facility] the event this information is protected by the Federal Confidentiality of Alcohol and Drug Abuse Patient Records regulations: The Federal rules restrict any use of the information to criminally investigate or prosecute any alcohol or drug abuse patient.[facility] Hospital[facility] the event this information is protected by the Federal Confidentiality of Alcohol and Drug Abuse Patient Records regulations: The Federal rules restrict any use of the information to criminally investigate or prosecute any alcohol or drug abuse patient.[facility] Hospital[facility] the event this information is protected by the Federal Confidentiality of Alcohol and Drug Abuse Patient Records regulations: The Federal rules restrict any use of the information to criminally investigate or prosecute any alcohol or drug abuse patient.[facility] Hospital[facility] the event this information is protected by the Federal Confidentiality of Alcohol and Drug Abuse Patient Records regulations: The Federal rules restrict any use of the information to criminally investigate or prosecute any alcohol or drug abuse patient.[facility] Hospital[facility] the event this information is protected by the Federal Confidentiality of Alcohol and Drug Abuse Patient Records regulations: The Federal rules restrict any use of the information to criminally investigate or prosecute any alcohol or drug abuse patient.[facility] Hospital[facility] the event this information is protected by the Federal Confidentiality of Alcohol and Drug Abuse Patient Records regulations: The Federal rules restrict any use of the information to criminally investigate or prosecute any alcohol or drug abuse patient.[facility] HospitalIn the event this information is protected by the Federal Confidentiality of Alcohol and Drug Abuse Patient Records regulations: The Federal rules restrict any use of the information to criminally investigate or prosecute any alcohol or drug abuse patient.[facility] HospitalIn the event this information is protected by the Federal Confidentiality of Alcohol and Drug Abuse Patient Records regulations: The Federal rules restrict any use of the information to criminally investigate or prosecute any alcohol or drug abuse patient.[facility] HospitalIn the event this information is protected by the Federal Confidentiality of Alcohol and Drug Abuse Patient Records regulations: The Federal rules restrict any use of the information to criminally investigate or prosecute any alcohol or drug abuse patient.[facility] HospitalIn the event this information is protected by the Federal Confidentiality of Alcohol and Drug Abuse Patient Records regulations: The Federal rules restrict any use of the information to criminally investigate or prosecute any alcohol or drug abuse patient.[facility] HospitalIn the event this information is protected by the Federal Confidentiality of Alcohol and Drug Abuse Patient Records regulations: The Federal rules restrict any use of the information to criminally investigate or prosecute any alcohol or drug abuse patient.[facility] HospitalIn the event this information is protected by the Federal Confidentiality of Alcohol and Drug Abuse Patient Records regulations: The Federal rules restrict any use of the information to criminally investigate or prosecute any alcohol or drug abuse patient.[facility] HospitalIn the event this information is protected by the Federal Confidentiality of Alcohol and Drug Abuse Patient Records regulations: The Federal rules restrict any use of the information to criminally investigate or prosecute any alcohol or drug abuse patient.[facility] HospitalIn the event this information is protected by the Federal Confidentiality of Alcohol and Drug Abuse Patient Records regulations: The Federal rules restrict any use of the information to criminally investigate or prosecute any alcohol or drug abuse patient.[facility] HospitalIn the event this information is protected by the Federal Confidentiality of Alcohol and Drug Abuse Patient Records regulations: The Federal rules restrict any use of the information to criminally investigate or prosecute any alcohol or drug abuse patient.[facility] HospitalIn the event this information is protected by the Federal Confidentiality of Alcohol and Drug Abuse Patient Records regulations: The Federal rules restrict any use of the information to criminally investigate or prosecute any alcohol or drug abuse patient.[facility] HospitalIn the event this information is protected by the Federal Confidentiality of Alcohol and Drug Abuse Patient Records regulations: The Federal rules restrict any use of the information to criminally investigate or prosecute any alcohol or drug abuse patient.[facility] HospitalIn the event this information is protected by the Federal Confidentiality of Alcohol and Drug Abuse Patient Records regulations: The Federal rules restrict any use of the information to criminally investigate or prosecute any alcohol or drug abuse patient.[facility] HospitalIn the event this information is protected by the Federal Confidentiality of Alcohol and Drug Abuse Patient Records regulations: The Federal rules restrict any use of the information to criminally investigate or prosecute any alcohol or drug abuse patient.[facility] HospitalIn the event this information is protected by the Federal Confidentiality of Alcohol and Drug Abuse Patient Records regulations: The Federal rules restrict any use of the information to criminally investigate or prosecute any alcohol or drug abuse patient.[facility] HospitalIn the event this information is protected by the Federal Confidentiality of Alcohol and Drug Abuse Patient Records regulations: The Federal rules restrict any use of the information to criminally investigate or prosecute any alcohol or drug abuse patient.[facility] HospitalIn the event this information is protected by the Federal Confidentiality of Alcohol and Drug Abuse Patient Records regulations: The Federal rules restrict any use of the information to criminally investigate or prosecute any alcohol or drug abuse patient.[facility] HospitalIn the event this information is protected by the Federal Confidentiality of Alcohol and Drug Abuse Patient Records regulations: The Federal rules restrict any use of the information to criminally investigate or prosecute any alcohol or drug abuse patient.[facility] HospitalIn the event this information is protected by the Federal Confidentiality of Alcohol and Drug Abuse Patient Records regulations: The Federal rules restrict any use of the information to criminally investigate or prosecute any alcohol or drug abuse patient.[facility] HospitalIn the event this information is protected by the Federal Confidentiality of Alcohol and Drug Abuse Patient Records regulations: The Federal rules restrict any use of the information to criminally investigate or prosecute any alcohol or drug abuse patient.[facility] HospitalIn the event this information is protected by the Federal Confidentiality of Alcohol and Drug Abuse Patient Records regulations: The Federal rules restrict any use of the information to criminally investigate or prosecute any alcohol or drug abuse patient.[facility] HospitalIn the event this information is protected by the Federal Confidentiality of Alcohol and Drug Abuse Patient Records regulations: The Federal rules restrict any use of the information to criminally investigate or prosecute any alcohol or drug abuse patient.[facility] HospitalIn the event this information is protected by the Federal Confidentiality of Alcohol and Drug Abuse Patient Records regulations: The Federal rules restrict any use of the information to criminally investigate or prosecute any alcohol or drug abuse patient.[facility] HospitalIn the event this information is protected by the Federal Confidentiality of Alcohol and Drug Abuse Patient Records regulations: The Federal rules restrict any use of the information to criminally investigate or prosecute any alcohol or drug abuse patient.[facility] HospitalIn the event this information is protected by the Federal Confidentiality of Alcohol and Drug Abuse Patient Records regulations: The Federal rules restrict any use of the information to criminally investigate or prosecute any alcohol or drug abuse patient.[facility] HospitalIn the event this information is protected by the Federal Confidentiality of Alcohol and Drug Abuse Patient Records regulations: The Federal rules restrict any use of the information to criminally investigate or prosecute any alcohol or drug abuse patient.[facility] HospitalIn the event this information is protected by the Federal Confidentiality of Alcohol and Drug Abuse Patient Records regulations: The Federal rules restrict any use of the information to criminally investigate or prosecute any alcohol or drug abuse patient.[facility] HospitalIn the event this information is protected by the Federal Confidentiality of Alcohol and Drug Abuse Patient Records regulations: The Federal rules restrict any use of the information to criminally investigate or prosecute any alcohol or drug abuse patient.[facility] HospitalIn the event this information is protected by the Federal Confidentiality of Alcohol and Drug Abuse Patient Records regulations: The Federal rules restrict any use of the information to criminally investigate or prosecute any alcohol or drug abuse patient.[facility] HospitalIn the event this information is protected by the Federal Confidentiality of Alcohol and Drug Abuse Patient Records regulations: The Federal rules restrict any use of the information to criminally investigate or prosecute any alcohol or drug abuse patient.[facility] HospitalIn the event this information is protected by the Federal Confidentiality of Alcohol and Drug Abuse Patient Records regulations: The Federal rules restrict any use of the information to criminally investigate or prosecute any alcohol or drug abuse patient.[facility] HospitalIn the event this information is protected by the Federal Confidentiality of Alcohol and Drug Abuse Patient Records regulations: The Federal rules restrict any use of the information to criminally investigate or prosecute any alcohol or drug abuse patient.[facility] HospitalIn the event this information is protected by the Federal Confidentiality of Alcohol and Drug Abuse Patient Records regulations: The Federal rules restrict any use of the information to criminally investigate or prosecute any alcohol or drug abuse patient.[facility] HospitalIn the event this information is protected by the Federal Confidentiality of Alcohol and Drug Abuse Patient Records regulations: The Federal rules restrict any use of the information to criminally investigate or prosecute any alcohol or drug abuse patient.[facility] HospitalIn the event this information is protected by the Federal Confidentiality of Alcohol and Drug Abuse Patient Records regulations: The Federal rules restrict any use of the information to criminally investigate or prosecute any alcohol or drug abuse patient.[facility] HospitalIn the event this information is protected by the Federal Confidentiality of Alcohol and Drug Abuse Patient Records regulations: The Federal rules restrict any use of the information to criminally investigate or prosecute any alcohol or drug abuse patient.[facility] HospitalIn the event this information is protected by the Federal Confidentiality of Alcohol and Drug Abuse Patient Records regulations: The Federal rules restrict any use of the information to criminally investigate or prosecute any alcohol or drug abuse patient.[facility] HospitalIn the event this information is protected by the Federal Confidentiality of Alcohol and Drug Abuse Patient Records regulations: The Federal rules restrict any use of the information to criminally investigate or prosecute any alcohol or drug abuse patient.[facility] HospitalIn the event this information is protected by the Federal Confidentiality of Alcohol and Drug Abuse Patient Records regulations: The Federal rules restrict any use of the information to criminally investigate or prosecute any alcohol or drug abuse patient.[facility] HospitalIn the event this information is protected by the Federal Confidentiality of Alcohol and Drug Abuse Patient Records regulations: The Federal rules restrict any use of the information to criminally investigate or prosecute any alcohol or drug abuse patient.[facility] HospitalIn the event this information is protected by the Federal Confidentiality of Alcohol and Drug Abuse Patient Records regulations: The Federal rules restrict any use of the information to criminally investigate or prosecute any alcohol or drug abuse patient.[facility] HospitalIn the event this information is protected by the Federal Confidentiality of Alcohol and Drug Abuse Patient Records regulations: The Federal rules restrict any use of the information to criminally investigate or prosecute any alcohol or drug abuse patient.[facility] HospitalIn the event this information is protected by the Federal Confidentiality of Alcohol and Drug Abuse Patient Records regulations: The Federal rules restrict any use of the information to criminally investigate or prosecute any alcohol or drug abuse patient.[facility] HospitalIn the event this information is protected by the Federal Confidentiality of Alcohol and Drug Abuse Patient Records regulations: The Federal rules restrict any use of the information to criminally investigate or prosecute any alcohol or drug abuse patient.[facility] HospitalIn the event this information is protected by the Federal Confidentiality of Alcohol and Drug Abuse Patient Records regulations: The Federal rules restrict any use of the information to criminally investigate or prosecute any alcohol or drug abuse patient.[facility] HospitalIn the event this information is protected by the Federal Confidentiality of Alcohol and Drug Abuse Patient Records regulations: The Federal rules restrict any use of the information to criminally investigate or prosecute any alcohol or drug abuse patient.[facility] HospitalIn the event this information is protected by the Federal Confidentiality of Alcohol and Drug Abuse Patient Records regulations: The Federal rules restrict any use of the information to criminally investigate or prosecute any alcohol or drug abuse patient.[facility] HospitalIn the event this information is protected by the Federal Confidentiality of Alcohol and Drug Abuse Patient Records regulations: The Federal rules restrict any use of the information to criminally investigate or prosecute any alcohol or drug abuse patient.[facility] HospitalIn the event this information is protected by the Federal Confidentiality of Alcohol and Drug Abuse Patient Records regulations: The Federal rules restrict any use of the information to criminally investigate or prosecute any alcohol or drug abuse patient.[facility] HospitalIn the event this information is protected by the Federal Confidentiality of Alcohol and Drug Abuse Patient Records regulations: The Federal rules restrict any use of the information to criminally investigate or prosecute any alcohol or drug abuse patient.[facility] HospitalIn the event this information is protected by the Federal Confidentiality of Alcohol and Drug Abuse Patient Records regulations: The Federal rules restrict any use of the information to criminally investigate or prosecute any alcohol or drug abuse patient.[facility] HospitalIn the event this information is protected by the Federal Confidentiality of Alcohol and Drug Abuse Patient Records regulations: The Federal rules restrict any use of the information to criminally investigate or prosecute any alcohol or drug abuse patient.[facility] HospitalIn the event this information is protected by the Federal Confidentiality of Alcohol and Drug Abuse Patient Records regulations: The Federal rules restrict any use of the information to criminally investigate or prosecute any alcohol or drug abuse patient.[facility] HospitalIn the event this information is protected by the Federal Confidentiality of Alcohol and Drug Abuse Patient Records regulations: The Federal rules restrict any use of the information to criminally investigate or prosecute any alcohol or drug abuse patient.[facility] HospitalIn the event this information is protected by the Federal Confidentiality of Alcohol and Drug Abuse Patient Records regulations: The Federal rules restrict any use of the information to criminally investigate or prosecute any alcohol or drug abuse patient.[facility] HospitalIn the event this information is protected by the Federal Confidentiality of Alcohol and Drug Abuse Patient Records regulations: The Federal rules restrict any use of the information to criminally investigate or prosecute any alcohol or drug abuse patient.[facility] HospitalIn the event this information is protected by the Federal Confidentiality of Alcohol and Drug Abuse Patient Records regulations: The Federal rules restrict any use of the information to criminally investigate or prosecute any alcohol or drug abuse patient.[facility] HospitalIn the event this information is protected by the Federal Confidentiality of Alcohol and Drug Abuse Patient Records regulations: The Federal rules restrict any use of the information to criminally investigate or prosecute any alcohol or drug abuse patient.[facility] HospitalIn the event this information is protected by the Federal Confidentiality of Alcohol and Drug Abuse Patient Records regulations: The Federal rules restrict any use of the information to criminally investigate or prosecute any alcohol or drug abuse patient.[facility] HospitalIn the event this information is protected by the Federal Confidentiality of Alcohol and Drug Abuse Patient Records regulations: The Federal rules restrict any use of the information to criminally investigate or prosecute any alcohol or drug abuse patient.[facility] HospitalIn the event this information is protected by the Federal Confidentiality of Alcohol and Drug Abuse Patient Records regulations: The Federal rules restrict any use of the information to criminally investigate or prosecute any alcohol or drug abuse patient.[facility] HospitalIn the event this information is protected by the Federal Confidentiality of Alcohol and Drug Abuse Patient Records regulations: The Federal rules restrict any use of the information to criminally investigate or prosecute any alcohol or drug abuse patient.[facility] HospitalIn the event this information is protected by the Federal Confidentiality of Alcohol and Drug Abuse Patient Records regulations: The Federal rules restrict any use of the information to criminally investigate or prosecute any alcohol or drug abuse patient.[facility] HospitalIn the event this information is protected by the Federal Confidentiality of Alcohol and Drug Abuse Patient Records regulations: The Federal rules restrict any use of the information to criminally investigate or prosecute any alcohol or drug abuse patient.[facility] HospitalIn the event this information is protected by the Federal Confidentiality of Alcohol and Drug Abuse Patient Records regulations: The Federal rules restrict any use of the information to criminally investigate or prosecute any alcohol or drug abuse patient.[facility] HospitalIn the event this information is protected by the Federal Confidentiality of Alcohol and Drug Abuse Patient Records regulations: The Federal rules restrict any use of the information to criminally investigate or prosecute any alcohol or drug abuse patient.[facility] HospitalIn the event this information is protected by the Federal Confidentiality of Alcohol and Drug Abuse Patient Records regulations: The Federal rules restrict any use of the information to criminally investigate or prosecute any alcohol or drug abuse patient.[facility] HospitalIn the event this information is protected by the Federal Confidentiality of Alcohol and Drug Abuse Patient Records regulations: The Federal rules restrict any use of the information to criminally investigate or prosecute any alcohol or drug abuse patient.[facility] HospitalIn the event this information is protected by the Federal Confidentiality of Alcohol and Drug Abuse Patient Records regulations: The Federal rules restrict any use of the information to criminally investigate or prosecute any alcohol or drug abuse patient.[facility] HospitalIn the event this information is protected by the Federal Confidentiality of Alcohol and Drug Abuse Patient Records regulations: The Federal rules restrict any use of the information to criminally investigate or prosecute any alcohol or drug abuse patient.[facility] HospitalIn the event this information is protected by the Federal Confidentiality of Alcohol and Drug Abuse Patient Records regulations: The Federal rules restrict any use of the information to criminally investigate or prosecute any alcohol or drug abuse patient.[facility] HospitalIn the event this information is protected by the Federal Confidentiality of Alcohol and Drug Abuse Patient Records regulations: The Federal rules restrict any use of the information to criminally investigate or prosecute any alcohol or drug abuse patient.[facility] HospitalIn the event this information is protected by the Federal Confidentiality of Alcohol and Drug Abuse Patient Records regulations: The Federal rules restrict any use of the information to criminally investigate or prosecute any alcohol or drug abuse patient.[facility] HospitalIn the event this information is protected by the Federal Confidentiality of Alcohol and Drug Abuse Patient Records regulations: The Federal rules restrict any use of the information to criminally investigate or prosecute any alcohol or drug abuse patient.[facility] HospitalIn the event this information is protected by the Federal Confidentiality of Alcohol and Drug Abuse Patient Records regulations: The Federal rules restrict any use of the information to criminally investigate or prosecute any alcohol or drug abuse patient.[facility] HospitalIn the event this information is protected by the Federal Confidentiality of Alcohol and Drug Abuse Patient Records regulations: The Federal rules restrict any use of the information to criminally investigate or prosecute any alcohol or drug abuse patient.[facility] HospitalIn the event this information is protected by the Federal Confidentiality of Alcohol and Drug Abuse Patient Records regulations: The Federal rules restrict any use of the information to criminally investigate or prosecute any alcohol or drug abuse patient.[facility] HospitalIn the event this information is protected by the Federal Confidentiality of Alcohol and Drug Abuse Patient Records regulations: The Federal rules restrict any use of the information to criminally investigate or prosecute any alcohol or drug abuse patient.[facility] HospitalIn the event this information is protected by the Federal Confidentiality of Alcohol and Drug Abuse Patient Records regulations: The Federal rules restrict any use of the information to criminally investigate or prosecute any alcohol or drug abuse patient.[facility] HospitalIn the event this information is protected by the Federal Confidentiality of Alcohol and Drug Abuse Patient Records regulations: The Federal rules restrict any use of the information to criminally investigate or prosecute any alcohol or drug abuse patient.[facility] HospitalIn the event this information is protected by the Federal Confidentiality of Alcohol and Drug Abuse Patient Records regulations: The Federal rules restrict any use of the information to criminally investigate or prosecute any alcohol or drug abuse patient.[facility] HospitalIn the event this information is protected by the Federal Confidentiality of Alcohol and Drug Abuse Patient Records regulations: The Federal rules restrict any use of the information to criminally investigate or prosecute any alcohol or drug abuse patient.[facility] HospitalIn the event this information is protected by the Federal Confidentiality of Alcohol and Drug Abuse Patient Records regulations: The Federal rules restrict any use of the information to criminally investigate or prosecute any alcohol or drug abuse patient.[facility] HospitalIn the event this information is protected by the Federal Confidentiality of Alcohol and Drug Abuse Patient Records regulations: The Federal rules restrict any use of the information to criminally investigate or prosecute any alcohol or drug abuse patient.[facility] HospitalIn the event this information is protected by the Federal Confidentiality of Alcohol and Drug Abuse Patient Records regulations: The Federal rules restrict any use of the information to criminally investigate or prosecute any alcohol or drug abuse patient.[facility] HospitalIn the event this information is protected by the Federal Confidentiality of Alcohol and Drug Abuse Patient Records regulations: The Federal rules restrict any use of the information to criminally investigate or prosecute any alcohol or drug abuse patient.[facility] HospitalIn the event this information is protected by the Federal Confidentiality of Alcohol and Drug Abuse Patient Records regulations: The Federal rules restrict any use of the information to criminally investigate or prosecute any alcohol or drug abuse patient.[facility] HospitalIn the event this information is protected by the Federal Confidentiality of Alcohol and Drug Abuse Patient Records regulations: The Federal rules restrict any use of the information to criminally investigate or prosecute any alcohol or drug abuse patient.[facility] HospitalIn the event this information is protected by the Federal Confidentiality of Alcohol and Drug Abuse Patient Records regulations: The Federal rules restrict any use of the information to criminally investigate or prosecute any alcohol or drug abuse patient.[facility] HospitalIn the event this information is protected by the Federal Confidentiality of Alcohol and Drug Abuse Patient Records regulations: The Federal rules restrict any use of the information to criminally investigate or prosecute any alcohol or drug abuse patient.[facility] HospitalIn the event this information is protected by the Federal Confidentiality of Alcohol and Drug Abuse Patient Records regulations: The Federal rules restrict any use of the information to criminally investigate or prosecute any alcohol or drug abuse patient.[facility] HospitalIn the event this information is protected by the Federal Confidentiality of Alcohol and Drug Abuse Patient Records regulations: The Federal rules restrict any use of the information to criminally investigate or prosecute any alcohol or drug abuse patient.[facility] HospitalIn the event this information is protected by the Federal Confidentiality of Alcohol and Drug Abuse Patient Records regulations: The Federal rules restrict any use of the information to criminally investigate or prosecute any alcohol or drug abuse patient.[facility] HospitalIn the event this information is protected by the Federal Confidentiality of Alcohol and Drug Abuse Patient Records regulations: The Federal rules restrict any use of the information to criminally investigate or prosecute any alcohol or drug abuse patient.[facility] HospitalIn the event this information is protected by the Federal Confidentiality of Alcohol and Drug Abuse Patient Records regulations: The Federal rules restrict any use of the information to criminally investigate or prosecute any alcohol or drug abuse patient.[facility] HospitalIn the event this information is protected by the Federal Confidentiality of Alcohol and Drug Abuse Patient Records regulations: The Federal rules restrict any use of the information to criminally investigate or prosecute any alcohol or drug abuse patient.[facility] HospitalIn the event this information is protected by the Federal Confidentiality of Alcohol and Drug Abuse Patient Records regulations: The Federal rules restrict any use of the information to criminally investigate or prosecute any alcohol or drug abuse patient.[facility] HospitalIn the event this information is protected by the Federal Confidentiality of Alcohol and Drug Abuse Patient Records regulations: The Federal rules restrict any use of the information to criminally investigate or prosecute any alcohol or drug abuse patient.[facility] HospitalIn the event this information is protected by the Federal Confidentiality of Alcohol and Drug Abuse Patient Records regulations: The Federal rules restrict any use of the information to criminally investigate or prosecute any alcohol or drug abuse patient.[facility] HospitalIn the event this information is protected by the Federal Confidentiality of Alcohol and Drug Abuse Patient Records regulations: The Federal rules restrict any use of the information to criminally investigate or prosecute any alcohol or drug abuse patient.[facility] HospitalIn the event this information is protected by the Federal Confidentiality of Alcohol and Drug Abuse Patient Records regulations: The Federal rules restrict any use of the information to criminally investigate or prosecute any alcohol or drug abuse patient.[facility] HospitalIn the event this information is protected by the Federal Confidentiality of Alcohol and Drug Abuse Patient Records regulations: The Federal rules restrict any use of the information to criminally investigate or prosecute any alcohol or drug abuse patient.[facility] HospitalIn the event this information is protected by the Federal Confidentiality of Alcohol and Drug Abuse Patient Records regulations: The Federal rules restrict any use of the information to criminally investigate or prosecute any alcohol or drug abuse patient.[facility] HospitalIn the event this information is protected by the Federal Confidentiality of Alcohol and Drug Abuse Patient Records regulations: The Federal rules restrict any use of the information to criminally investigate or prosecute any alcohol or drug abuse patient.[facility] HospitalIn the event this information is protected by the Federal Confidentiality of Alcohol and Drug Abuse Patient Records regulations: The Federal rules restrict any use of the information to criminally investigate or prosecute any alcohol or drug abuse patient.[facility] HospitalIn the event this information is protected by the Federal Confidentiality of Alcohol and Drug Abuse Patient Records regulations: The Federal rules restrict any use of the information to criminally investigate or prosecute any alcohol or drug abuse patient.[facility] HospitalIn the event this information is protected by the Federal Confidentiality of Alcohol and Drug Abuse Patient Records regulations: The Federal rules restrict any use of the information to criminally investigate or prosecute any alcohol or drug abuse patient.[facility] HospitalIn the event this information is protected by the Federal Confidentiality of Alcohol and Drug Abuse Patient Records regulations: The Federal rules restrict any use of the information to criminally investigate or prosecute any alcohol or drug abuse patient.[facility] HospitalIn the event this information is protected by the Federal Confidentiality of Alcohol and Drug Abuse Patient Records regulations: The Federal rules restrict any use of the information to criminally investigate or prosecute any alcohol or drug abuse patient.[facility] HospitalIn the event this information is protected by the Federal Confidentiality of Alcohol and Drug Abuse Patient Records regulations: The Federal rules restrict any use of the information to criminally investigate or prosecute any alcohol or drug abuse patient.[facility] HospitalIn the event this information is protected by the Federal Confidentiality of Alcohol and Drug Abuse Patient Records regulations: The Federal rules restrict any use of the information to criminally investigate or prosecute any alcohol or drug abuse patient.[facility] HospitalIn the event this information is protected by the Federal Confidentiality of Alcohol and Drug Abuse Patient Records regulations: The Federal rules restrict any use of the information to criminally investigate or prosecute any alcohol or drug abuse patient.[facility] HospitalIn the event this information is protected by the Federal Confidentiality of Alcohol and Drug Abuse Patient Records regulations: The Federal rules restrict any use of the information to criminally investigate or prosecute any alcohol or drug abuse patient.[facility] HospitalIn the event this information is protected by the Federal Confidentiality of Alcohol and Drug Abuse Patient Records regulations: The Federal rules restrict any use of the information to criminally investigate or prosecute any alcohol or drug abuse patient.[facility] HospitalIn the event this information is protected by the Federal Confidentiality of Alcohol and Drug Abuse Patient Records regulations: The Federal rules restrict any use of the information to criminally investigate or prosecute any alcohol or drug abuse patient.[facility] HospitalIn the event this information is protected by the Federal Confidentiality of Alcohol and Drug Abuse Patient Records regulations: The Federal rules restrict any use of the information to criminally investigate or prosecute any alcohol or drug abuse patient.[facility] HospitalIn the event this information is protected by the Federal Confidentiality of Alcohol and Drug Abuse Patient Records regulations: The Federal rules restrict any use of the information to criminally investigate or prosecute any alcohol or drug abuse patient.[facility] HospitalIn the event this information is protected by the Federal Confidentiality of Alcohol and Drug Abuse Patient Records regulations: The Federal rules restrict any use of the information to criminally investigate or prosecute any alcohol or drug abuse patient.[facility] HospitalIn the event this information is protected by the Federal Confidentiality of Alcohol and Drug Abuse Patient Records regulations: The Federal rules restrict any use of the information to criminally investigate or prosecute any alcohol or drug abuse patient.[facility] HospitalIn the event this information is protected by the Federal Confidentiality of Alcohol and Drug Abuse Patient Records regulations: The Federal rules restrict any use of the information to criminally investigate or prosecute any alcohol or drug abuse patient.[facility] HospitalIn the event this information is protected by the Federal Confidentiality of Alcohol and Drug Abuse Patient Records regulations: The Federal rules restrict any use of the information to criminally investigate or prosecute any alcohol or drug abuse patient.[facility] HospitalIn the event this information is protected by the Federal Confidentiality of Alcohol and Drug Abuse Patient Records regulations: The Federal rules restrict any use of the information to criminally investigate or prosecute any alcohol or drug abuse patient.[facility] HospitalIn the event this information is protected by the Federal Confidentiality of Alcohol and Drug Abuse Patient Records regulations: The Federal rules restrict any use of the information to criminally investigate or prosecute any alcohol or drug abuse patient.[facility] HospitalIn the event this information is protected by the Federal Confidentiality of Alcohol and Drug Abuse Patient Records regulations: The Federal rules restrict any use of the information to criminally investigate or prosecute any alcohol or drug abuse patient.[facility] HospitalIn the event this information is protected by the Federal Confidentiality of Alcohol and Drug Abuse Patient Records regulations: The Federal rules restrict any use of the information to criminally investigate or prosecute any alcohol or drug abuse patient.[facility] HospitalIn the event this information is protected by the Federal Confidentiality of Alcohol and Drug Abuse Patient Records regulations: The Federal rules restrict any use of the information to criminally investigate or prosecute any alcohol or drug abuse patient.[facility] HospitalIn the event this information is protected by the Federal Confidentiality of Alcohol and Drug Abuse Patient Records regulations: The Federal rules restrict any use of the information to criminally investigate or prosecute any alcohol or drug abuse patient.[facility] HospitalIn the event this information is protected by the Federal Confidentiality of Alcohol and Drug Abuse Patient Records regulations: The Federal rules restrict any use of the information to criminally investigate or prosecute any alcohol or drug abuse patient.[facility] HospitalIn the event this information is protected by the Federal Confidentiality of Alcohol and Drug Abuse Patient Records regulations: The Federal rules restrict any use of the information to criminally investigate or prosecute any alcohol or drug abuse patient.[facility] HospitalIn the event this information is protected by the Federal Confidentiality of Alcohol and Drug Abuse Patient Records regulations: The Federal rules restrict any use of the information to criminally investigate or prosecute any alcohol or drug abuse patient.[facility] HospitalIn the event this information is protected by the Federal Confidentiality of Alcohol and Drug Abuse Patient Records regulations: The Federal rules restrict any use of the information to criminally investigate or prosecute any alcohol or drug abuse patient.[facility] HospitalIn the event this information is protected by the Federal Confidentiality of Alcohol and Drug Abuse Patient Records regulations: The Federal rules restrict any use of the information to criminally investigate or prosecute any alcohol or drug abuse patient.[facility] HospitalIn the event this information is protected by the Federal Confidentiality of Alcohol and Drug Abuse Patient Records regulations: The Federal rules restrict any use of the information to criminally investigate or prosecute any alcohol or drug abuse patient.[facility] HospitalIn the event this information is protected by the Federal Confidentiality of Alcohol and Drug Abuse Patient Records regulations: The Federal rules restrict any use of the information to criminally investigate or prosecute any alcohol or drug abuse patient.[facility] HospitalIn the event this information is protected by the Federal Confidentiality of Alcohol and Drug Abuse Patient Records regulations: The Federal rules restrict any use of the information to criminally investigate or prosecute any alcohol or drug abuse patient.[facility] HospitalIn the event this information is protected by the Federal Confidentiality of Alcohol and Drug Abuse Patient Records regulations: The Federal rules restrict any use of the information to criminally investigate or prosecute any alcohol or drug abuse patient.[facility] HospitalIn the event this information is protected by the Federal Confidentiality of Alcohol and Drug Abuse Patient Records regulations: The Federal rules restrict any use of the information to criminally investigate or prosecute any alcohol or drug abuse patient.[facility] HospitalIn the event this information is protected by the Federal Confidentiality of Alcohol and Drug Abuse Patient Records regulations: The Federal rules restrict any use of the information to criminally investigate or prosecute any alcohol or drug abuse patient.[facility] HospitalIn the event this information is protected by the Federal Confidentiality of Alcohol and Drug Abuse Patient Records regulations: The Federal rules restrict any use of the information to criminally investigate or prosecute any alcohol or drug abuse patient.[facility] HospitalIn the event this information is protected by the Federal Confidentiality of Alcohol and Drug Abuse Patient Records regulations: The Federal rules restrict any use of the information to criminally investigate or prosecute any alcohol or drug abuse patient.[facility] HospitalIn the event this information is protected by the Federal Confidentiality of Alcohol and Drug Abuse Patient Records regulations: The Federal rules restrict any use of the information to criminally investigate or prosecute any alcohol or drug abuse patient.[facility] HospitalIn the event this information is protected by the Federal Confidentiality of Alcohol and Drug Abuse Patient Records regulations: The Federal rules restrict any use of the information to criminally investigate or prosecute any alcohol or drug abuse patient.[facility] HospitalIn the event this information is protected by the Federal Confidentiality of Alcohol and Drug Abuse Patient Records regulations: The Federal rules restrict any use of the information to criminally investigate or prosecute any alcohol or drug abuse patient.[facility] HospitalIn the event this information is protected by the Federal Confidentiality of Alcohol and Drug Abuse Patient Records regulations: The Federal rules restrict any use of the information to criminally investigate or prosecute any alcohol or drug abuse patient.[facility] HospitalIn the event this information is protected by the Federal Confidentiality of Alcohol and Drug Abuse Patient Records regulations: The Federal rules restrict any use of the information to criminally investigate or prosecute any alcohol or drug abuse patient.[facility] HospitalIn the event this information is protected by the Federal Confidentiality of Alcohol and Drug Abuse Patient Records regulations: The Federal rules restrict any use of the information to criminally investigate or prosecute any alcohol or drug abuse patient.[facility] HospitalIn the event this information is protected by the Federal Confidentiality of Alcohol and Drug Abuse Patient Records regulations: The Federal rules restrict any use of the information to criminally investigate or prosecute any alcohol or drug abuse patient.[facility] HospitalIn the event this information is protected by the Federal Confidentiality of Alcohol and Drug Abuse Patient Records regulations: The Federal rules restrict any use of the information to criminally investigate or prosecute any alcohol or drug abuse patient.[facility] HospitalIn the event this information is protected by the Federal Confidentiality of Alcohol and Drug Abuse Patient Records regulations: The Federal rules restrict any use of the information to criminally investigate or prosecute any alcohol or drug abuse patient.[facility] HospitalIn the event this information is protected by the Federal Confidentiality of Alcohol and Drug Abuse Patient Records regulations: The Federal rules restrict any use of the information to criminally investigate or prosecute any alcohol or drug abuse patient.[facility] HospitalIn the event this information is protected by the Federal Confidentiality of Alcohol and Drug Abuse Patient Records regulations: The Federal rules restrict any use of the information to criminally investigate or prosecute any alcohol or drug abuse patient.[facility] Reason for Visit (unrecogniz ed section and content) Reason Comments PT Discharge Specialty Diagnoses / Procedures Referred By Jenny cotter Referred To Contact [facility] Diagnoses Leg weakness, bilateral Procedures CONSULT TO PHYSICAL THERAPY PHYSICAL THERAPY EVALUATION HIGH COMPLEX 45 MINS Radha Batista, MANAGER REGIONAL.PBX TEACHER [address] [place] [address] [facility] [place] [address] [place] [address] Referral ID Status Reason Start Date Expiration Date Visits Requested Visits Authorized [id number] Authorized PCP Requested Referral Auto-Generate d Referral [...] STRESS/PHARM MYOCARDIAL SPECT MULTIPLE STUDIES Radha Batista, MANAGER REGIONAL.PBX TEACHER [address] [place] [address] [facility] [address] [place] [address] Referral ID Status Reason Start Date Expiration Date V isits Requested Visits Authorized [id number] Closed Auto-Generate d Referral 05/15/2023 10/12/2023 3 [...] Refill Request 01/29/2024 Reason Comments Insurance Authorization Gino topete Reason Onset Date Comments Refill Request 02/24/2024 [...] Reason Comments Information Reason Comments took another [facility] patient s medica tions Reason Comments Clinical [...] US Specialty Diagnoses / Procedures Referred By Contac t Referred To Contact [facility] Diagnoses Elevated liver enzymes Procedures US ABD RIGHT UPPER QUADRANT US ABDOMINAL REAL TIME W/IMAGE LIMITED Aleksandar Jones MD [address] [place] [address] Phone: tel: fax: [place] [phone] Referral ID Status Reason Start Date Expiration Date V isits Requested Visits Authorized [id number] Closed Auto-Generate d Referral 01/18/2025 02/03/2026 1 1 Reason Comments Forms Reason Onset Date Comments Refill Request 01/25/2025 Reason Onset Date Comments Refill Request 02/18/2025 Reason Comments Letter Reason Comments Follow Up 2 month follow up- p atient went from [facility] to assisted living at [facility] Reason Comments Statin Recommendation Care Teams (unrecognized sec tion and content) Industrial X Ray Operator Relationship Specialty Start Date End Date Aleksandar Jones MD [address] [place], [place] [id number] PCP - General Family Practice 12/26/14 Koby Ramirez V [address] [place] [address] [place] [address] Internal Medicine 07/22/18 Yolie Mars Other 05/30/14 [facility] 12/18/17 clark ASHBY 10/25/19 Industrial X Ray Operator Relationship Specialty Start Date End Date Aleksandar Jones MD [address] [place], [place] [id number] PCP - General Family Practice 12/26/14 Koby Ramirez V [address] [place] [address] [place] [phone] Internal Medicine 07/22/18 Yolie Mars Other 05/30/14 [facility] 12/18/17 [facility] 10/25/19 Industrial X Ray Operator Relationship Specialty Start Date End Date Aleksandar Jones MD [address] [place] [address] PCP - General Family Practice 12/26/14 Koby Ramirez V [address] [place] [address] [place] [phone] Internal Medicine 07/22/18 Yolie Mars Other 05/30/14 [facility] 12/18/17 [facility] 10/25/19 Industrial X Ray Operator Relationship Specialty Start Date End Date Aleksandar Jones MD [address] [place] [address] PCP - General Family Practice 12/26/14 Koby Ramirez V [address] [place] [address] [place] [phone] Internal Medicine 07/22/18 Yolie Mars Other 05/30/14 [facility] 12/18/17 [facility] 10/25/19 Industrial X Ray Operator Relationship Specialty Start Date End Date Aleksandar Jones MD [address] [place] [address] PCP - General Family Practice 12/26/14 Koby Ramirez V [address] [place] [address] Internal Medicine 07/22/18 Yolie Mars Other 05/30/14 [facility] 12/18/17 [facility] 10/25/19 Industrial X Ray Operator Relationship Specialty Start Date End Date Aleksandar Jones MD [address] [place] [address] PCP - General Family Practice 12/26/14 Koby Ramirez V [address] [place] [address] Internal Medicine 07/22/18 Yolie Mars Other 05/30/14 [facility] 12/18/17 [place] [facility] 10/25/19 Industrial X Ray Operator Relationship Specialty Start Date End Date Aleksandar Jones MD [address] [place] [address] PCP - General Family Practice 12/26/14 Koby Ramirez V [address] [place] [address] Internal Medicine 07/22/18 Yolie Mars Other 05/30/14 [facility] 12/18/17 cl[facility]r [facility] 10/25/19 Industrial X Ray Operator Relationship Specialty Start Date End Date Aleksandar Jones MD [address] [place] [address] PCP - General Family Medicine 12/26/14 Koby Ramirez V [address] [place] [address] Internal Medicine 07/22/18 Yolie Mars Other 05/30/14 [facility] 12/18/17 [facility] 10/25/19 Industrial X Ray Operator Relationship Specialty Start Date End Date Aleksandar Jones MD [address] [place] [address] PCP - General Family Medicine 12/26/14 Koby Ramirez V [address] [place] [address] Internal Medicine 07/22/18 Yolie Mars Other 05/30/14 [facility] 12/18/17 [facility] 10/25/19 Industrial X Ray Operator Relationship Specialty Start Date End Date Aleksandar Jones MD [address] [place] [address] PCP - General Family Medicine 12/26/14 Koby Ramirez V [address] [place] [address] Internal Medicine 07/22/18 Yolie Mars Other 05/30/14 [facility] 12/18/17 [facility] 10/25/19 Industrial X Ray Operator Relationship Specialty Start Date End Date Aleksandar Jones MD [address] [place] [address] PCP - General Family Medicine 12/26/14 Koby Ramirez V [address] [place] [address] Internal Medicine 07/22/18 Yolie Mars Other 05/30/14 Fpc 12/18/17 clark marr DME 10/25/19 Industrial X Ray Operator Relationship Specialty Start Date End Date Aleksandar Jones MD [address] [place] [address] PCP - General Family Medicine 12/26/14 Koby Ramirez V [address] [place] [address] Internal Medicine 07/22/18 Yolie Mars Other 05/30/14 Fpc 12/18/17 clark marr DME 10/25/19 Industrial X Ray Operator Relationship Specialty Start Date End Date Aleksandar Jones MD [address] [facility] [place] [address] PCP - General Family Medicine 12/26/14 Koby Ramirez V [address] [place] [address] Internal Medicine 07/22/18 Yolie Mars Other 05/30/14 Fpc 12/18/17 clark marr DME 10/25/19 Industrial X Ray Operator Relationship Specialty Start Date End Date Aleksandar Jones MD [address] [facility] [place] [address] PCP - General Family Medicine 12/26/14 Koby Ramirez V [address] [place] [address] Internal Medicine 07/22/18 Yolie Mars Other 05/30/14 Fpc 12/18/17 clark justa DME 10/25/19 Industrial X Ray Operator Relationship Specialty Start Date End Date Aleksandar Jones MD [address] [facility], [place] [address] PCP - General Family Medicine 12/26/14 Koby Ramirez V [address] [place] [address] Internal Medicine 07/22/18 Yolie Mars Other 05/30/14 Fpc 12/18/17 clark marr DME 10/25/19 Industrial X Ray Operator Relationship Specialty Start Date End Date Aleksandar Jones MD [address] [facility], [place] [id number] PCP - General Family Medicine 12/26/14 Koby Ramirez V [address] [place] [address] Internal Medicine 07/22/18 Yolie Mars Other 05/30/14 Fpc 12/18/17 clark marr DME 10/25/19 Team Status: Active Member Role Status Dates Dr. Aleksandar Jones MD Family Provider Active Dr. Aleksandar Jones MD Primary Care Provider Active Team Status: Inactive Member Role Status Dates Dr. Aleksandar Jones MD Primary Care Provider, Family Pr ovider Active Dr. Lorraine Springer MD Attending Provider, Mikayla tang Active Industrial X Ray Operator Relationship Specialty Start Date End Date Aleksandar Jones MD [address] [facility], [place] [address] PCP - General Family Medicine 12/26/14 Koby Ramirez V [address] [place] [address] [place] [address] Internal Medicine 07/22/18 Yolie Mars Other 05/30/14 Fpc 12/18/17 clark marr DME 10/25/19 Industrial X Ray Operator Relationship Specialty Start Date End Date Aleksandar Jones MD [address] [place], [place] [id number] PCP - General Family Medicine 12/26/14 Koby Ramirez V [address] [place] [place] [address] Internal Medicine 07/22/18 Yolie Mars Other 05/30/14 Fpc 12/18/17 clark marr DME 10/25/19 Team Status: Inactive Member Role Status Dates Dr. Aleksandar Jones MD Primary Care Provider Active Dr. Koby Ramirez MD Attending Provider, Joan bryan Provider Active Industrial X Ray Operator Relationship Specialty Start Date End Date Aleksandar Jones MD [address] [place], [place] [id number] PCP - General Family Medicine 12/26/14 Koby Ramirez V [address] [place] [address] Internal Medicine 07/22/18 Yolie Mars Other 05/30/14 Fpc 12/18/17 clark marr DME 10/25/19 Industrial X Ray Operator Relationship Specialty Start Date End Date Aleksandar Jones MD [address] [place], [place] [id number] PCP - General Family Medicine 12/26/14 Koby Ramirez V [address] [place] [address] Internal Medicine 07/22/18 Yolie Rodriguezi Other 05/30/14 Fpc 12/18/17 corner stone D[facility] 10/25/19 Industrial X Ray Operator Relationship Specialty Start Date End Date Aleksandar Jones MD [address] [place] [place] [address] PCP - General Family Medicine 12/26/14 Koby Ramirez V [address] [place] [address] Internal Medicine 07/22/18 Yolie Mars Other 05/30/14 Fpc 12/18/17 clark justa DME 10/25/19 Industrial X Ray Operator Relationship Specialty Start Date End Date Aleksandar Jones MD [address] [place] [place] [address] PCP - General Family Medicine 12/26/14 Koby Ramirez V [address] [place] [address] Internal Medicine 07/22/18 Yolie Mars Other 05/30/14 Fpc 12/18/17 clark stone DME 10/25/19 Industrial X Ray Operator Relationship Specialty Start Date End Date Aleksandar Jones MD [address] [place] [place] [address] PCP - General Family Medicine 12/26/14 Koby Ramirez V [address] [place] [address] Internal Medicine 07/22/18 Yolie Mars Other 05/30/14 Fpc 12/18/17 corner stone [facility] 10/25/19 Industrial X Ray Operator Relationship Specialty Start Date End Date Aleksandar Jones MD [address] [place] [place] [address] PCP - General Family Medicine 12/26/14 Koby Ramirez V [address] [place] [place] [address] Internal Medicine 07/22/18 Yolie Masr Other 05/30/14 Fpc 12/18/17 [facility] 10/25/19 Industrial X Ray Operator Relationship Specialty Start Date End Date Aleksandar Jones MD [address] [place] [place] [address] PCP - General Family Medicine 12/26/14 Koby Ramirez V [address] [place] [address] Internal Medicine 07/22/18 Yloie Mars Other 05/30/14 Fpc 12/18/17 corner stone [facility] 10/25/19 Team Status: Active Member Role [...] Dr. Hesham Noguera MD Attending Provider Active Industrial X Ray Operator Relationship Specialty Start Date End Date Aleksandar Jones MD [address] [place] [address]51 PCP - General Family Medicine 12/26/14 Koby Ramirez [address] [place] [address] Internal Medicine 07/22/18 Yolie Mars Other 05/30/14 Fpc 12/18/17 clark marr [facility] 10/25/19 Industrial X Ray Operator Relationship Specialty Start Date End Date Aleksandar Jones MD [address] [place] [address] PCP - General Family Medicine 12/26/14 Koby Ramirez [place] [address] [place] [address] Internal Medicine 07/22/18 Yolie Mars Other 05/30/14 Fpc 12/18/17 corner stone [facility] 10/25/19 Industrial X Ray Operator Relationship Specialty Start Date End Date Aleksandar Jones MD [address] [place], [place] [address] PCP - General Family Medicine 12/26/14 Koby Ramirez V [address] [place] [address] Internal Medicine 07/22/18 Yolie Mars Other 05/30/14 Fpc 12/18/17 corner stone [facility] 10/25/19 Industrial X Ray Operator Relationship Specialty Start Date End Date Aleksandar Jones MD [address] [place], [place] [address] PCP - General Family Medicine 12/26/14 Koby Ramirez V [address] [place] [address] Internal Medicine 07/22/18 Yolie Mars Other 05/30/14 Fpc 12/18/17 [facility] stone [facility] 10/25/19 Industrial X Ray Operator Relationship Specialty Start Date End Date Aleksandar Jones MD [address] [place] [place] [address] PCP - General Family Medicine 12/26/14 Koby Ramirez V [address] [place] [address] Internal Medicine 07/22/18 Yolie Mars Other 05/30/14 Fpc 12/18/17 clark marr DME 10/25/19 Team Status: [...] MD Attending Provider, Referring P kitty Active Industrial X Ray Operator Relationship Specialty Start Date End Date Aleksandar Jones MD [address] [place], [place] [address] PCP - General Family Medicine 12/26/14 Koby Ramirez V [address] [place] [address] Internal Medicine 07/22/18 Yolie Mars Other 05/30/14 Fpc 12/18/17 clark marr DME 10/25/19 Team Status: Inactive Member Role Status Dates Dr. Aleksandar Jones MD Primary Care Provider Active Dr. Jey Quesada DO Emergency Provider Active Team Status: Inactive Member Role Status Dates Dr. Aleksandar Jones MD Primary Care Provider Active Dr. Jey Quesada DO Attending Provider, Emergency Provider Active Industrial X Ray Operator Relationship Specialty Start Date End Date Aleksandar Jones MD [address] [place], [place] [address]41 PCP - General Family Medicine 12/26/14 Koby Ramirez V [address] [place] [address] Internal Medicine 07/22/18 Yolie Mars Other 05/30/14 Fpc 12/18/17 [facility] 10/25/19 Industrial X Ray Operator Relationship Specialty Start Date End Date Aleksandar Jones MD [address] [place] [place] [address] PCP - General Family Medicine 12/26/14 Koby Ramirez V [address] [place] [address] Internal Medicine 07/22/18 Yolie Mars Other 05/30/14 Fpc 12/18/17 [facility] 10/25/19 Industrial X Ray Operator Relationship Specialty Start Date End Date Aleksandar Jones MD [address] [place] [place] [address] PCP - General Family Medicine 12/26/14 Koby Ramirez V [address] [place] [address] Internal Medicine 07/22/18 Yolie Mars Other 05/30/14 Fpc 12/18/17 [facility] 10/25/19 Industrial X Ray Operator Relationship Specialty Start Date End Date Aleksandar Jones MD [address] [place] [place] [address] PCP - General Family Medicine 12/26/14 Koby Ramirez V [address] [place] [address] Internal Medicine 07/22/18 Yolie Mars Other 05/30/14 Fpc 12/18/17 [facility] 10/25/19 Industrial X Ray Operator Relationship Specialty Start Date End Date Aleksandar Jones MD [address] [place] [address] [place] [address] PCP - General Family Medicine 12/26/14 Koby Ramirez V [address] [place] [address] Internal Medicine 07/22/18 Yolie Mars Other 05/30/14 Fpc 12/18/17 [facility] 10/25/19 Industrial X Ray Operator Relationship Specialty Start Date End Date Aleksandar Jones MD [address] [place] [address] PCP - General Family Medicine 12/26/14 Koby Ramirez V [address] [place] [address] Internal Medicine 07/22/18 Yolie Mars Other 05/30/14 Fpc 12/18/17 [facility] 10/25/19 Industrial X Ray Operator Relationship Specialty Start Date End Date Aleksandar Jones MD [address] [place] [place] [address] PCP - General Family Medicine 12/26/14 Koby Ramirez V [address] [place] [address] Internal Medicine 07/22/18 Yolie Mars Other 05/30/14 Fpc 12/18/17 [facility] 10/25/19 Industrial X Ray Operator Relationship Specialty Start Date End Date Aleksandar Jones MD [address] [place] [place] [address] PCP - General Family Medicine 12/26/14 Koby Ramirez [address] [place] [address] Internal Medicine 07/22/18 Yolie Mars Other 05/30/14 Fpc 12/18/17 corner justa DME 10/25/19 Industrial X Ray Operator Relationship Specialty Start Date End Date Aleksandar Jones MD [address] [place] [place] [address] PCP - General Family Medicine 12/26/14 Koby Ramirez V [address] [place] [address] Internal Medicine 07/22/18 Yolie Mars Other 05/30/14 Fpc 12/18/17 [facility] 10/25/19 Industrial X Ray Operator Relationship Specialty Start Date End Date Aleksandar Jones MD [address] [place] [place] [address] PCP - General Family Medicine 12/26/14 Koby Ramirez V [address] [place] [address] Internal Medicine 07/22/18 Yolie Mars Other 05/30/14 Fpc 12/18/17 [facility] 10/25/19 Industrial X Ray Operator Relationship Specialty Start Date End Date Aleksandar Jones MD [address] [place] [place] [address] PCP - General Family Medicine 12/26/14 Koby Ramirez V [address] [place] [address] Internal Medicine 07/22/18 Yolie Mars Other 05/30/14 Fpc 12/18/17 [facility] 10/25/19 Industrial X Ray Operator Relationship Specialty Start Date End Date Aleksandar Jones MD [address] [place] [address] [place] [address] PCP - General Family Medicine 12/26/14 Koby Ramirez V [address] [place] [place] [address] Internal Medicine 07/22/18 Yolie Mars Other 05/30/14 Fpc 12/18/17 clark marr DME 10/25/19 Industrial X Ray Operator Relationship Specialty Start Date End Date Aleksandar Jones MD [address] [place] [address] [place] [address] PCP - General Family Medicine 12/26/14 Koby Ramirez V [address] [place] [address] Internal Medicine 07/22/18 Yolie Mars Other 05/30/14 Fpc 12/18/17 clark marr DME 10/25/19 Industrial X Ray Operator Relationship Specialty Start Date End Date Aleksandar Jones MD [address] [place] [place] [address] PCP - General Family Medicine 12/26/14 Koby Ramirez V [address] [place] [address] Internal Medicine 07/22/18 Yolie Mars Other 05/30/14 Fpc 12/18/17 clark marr DME 10/25/19 Industrial X Ray Operator Relationship Specialty Start Date End Date Aleksandar Jones MD [address] [place] [place] [address] PCP - General Family Medicine 12/26/14 Koby Ramirez V [address] [place] [address] Internal Medicine 07/22/18 Yolie Mars Other 05/30/14 Fpc 12/18/17 [facility] 10/25/19 Industrial X Ray Operator Relationship Specialty Start Date End Date Aleksandar Jones MD [address] [place], [place] [address] PCP - General Family Medicine 12/26/14 Koby Ramirez V [address] [place] [address] Internal Medicine 07/22/18 Yolie Mars Other 05/30/14 Fpc 12/18/17 [facility] 10/25/19 Industrial X Ray Operator Relationship Specialty Start Date End Date Aleksandar Jones MD [address] [facility] [place], [place] [address] PCP - General Family Medicine 12/26/14 Koby Ramirez V [address] [place] [address] Internal Medicine 07/22/18 Yolie Mars Other 05/30/14 Fpc 12/18/17 [facility] D[facility] 10/25/19 Industrial X Ray Operator Relationship Specialty Start Date End Date Aleksandar Jones MD [address] [place] [place] [address] PCP - General Family Medicine 12/26/14 Koby Ramirez V [address] [place] [address] Internal Medicine 07/22/18 Yolie Sabrani Other 05/30/14 Fpc 12/18/17 [facility] 10/25/19 Industrial X Ray Operator Relationship Specialty Start Date End Date Aleksandar Jones MD [address] [place], [place] [address] PCP - General Family Medicine 12/26/14 Koby Ramirez V [address] [place] [address] Internal Medicine 07/22/18 Yolie Mars Other 05/30/14 Fpc 12/18/17 corner justa DME 10/25/19 Industrial X Ray Operator Relationship Specialty Start Date End Date Aleksandar Jones MD [address] [place] [place] [address] PCP - General Family Medicine 12/26/14 Koby Ramirez V [address] [place] [address] Internal Medicine 07/22/18 Yolie Mars Other 05/30/14 Fpc 12/18/17 [facility] 10/25/19 Industrial X Ray Operator Relationship Specialty Start Date End Date Aleksandar Jones MD [address] [place] [place] [address] PCP - General Family Medicine 12/26/14 Koby Ramirez V [address] [place] [address] Internal Medicine 07/22/18 Kaitlyn Sanders, [facility] [address] [place] [address] Pharmacist Pharmacy 08/31/20 10/17/21 Yolie Mars Other 05/30/14 Fpc 12/18/17 [facility] 10/25/19 Industrial X Ray Operator Relationship Specialty Start Date End Date Aleksandar Jones MD [address] [place] [place] [address] PCP - General Family Medicine 12/26/14 Koby Ramirez V [address] [place] [address] Internal Medicine 07/22/18 [facility] [address] [place] [address] Pharmacist Pharmacy 08/31/20 10/17/21 Yolie Mars Other 05/30/14 Fpc 12/18/17 [facility] 10/25/19 Industrial X Ray Operator Relationship Specialty Start Date End Date Aleksandar Jones MD [address] [place] [place] [address] PCP - General Family Medicine 12/26/14 Koby Ramirez V [address] [place] [address] Internal Medicine 07/22/18 Yolie Mars Other 05/30/14 Fpc 12/18/17 [facility] 10/25/19 Industrial X Ray Operator Relationship Specialty Start Date End Date Aleksandar Jones MD [address] [place], [place] [address] PCP - General Family Medicine 12/26/14 Koby Ramirez V [address] [place] [address] Internal Medicine 07/22/18 Yolie Mars Other 05/30/14 Fpc 12/18/17 [facility] 10/25/19 Industrial X Ray Operator Relationship Specialty Start Date End Date Aleksandar Jones MD [address] [facility] [place], [place] [address] PCP - General Family Medicine 12/26/14 Koby Ramirez V [address] [place] [address] Internal Medicine 07/22/18 Yolie Mars Other 05/30/14 Fpc 12/18/17 clark marr DME 10/25/19 Industrial X Ray Operator Relationship Specialty Start Date End Date Aleksandar Jones MD [address] [place] [place] [address] PCP - General Family Medicine 12/26/14 Koby Ramirez V [address] [place] [address] Internal Medicine 07/22/18 Radha Batista, MANAGER REGIONAL.PBX TEACHER [address] [place] [address] Stitching Machine Operator Family Medicine 09/20/24 Shelai Salmon APRN.PBX TEACHER [address] [place] [address] Stitching Machine Operator Family Medicine 09/20/24 Yolie Mars Other 05/30/14 Fpc 12/18/17 clark marr DME 10/25/19 Industrial X Ray Operator Relationship Specialty Start Date End Date Alkesandar Jones MD [address] [place] [place] [address] PCP - General Family Medicine 12/26/14 Koby Ramirez V [address] [place] [address] Internal Medicine 07/22/18 Radha Batista, MANAGER REGIONAL.PBX TEACHER [address] [place] [address] Stitching Machine Operator Family Medicine 09/20/24 Shelia Salmon MANAGER REGIONAL.PBX TEACHER [address] [place] [place] [address] Stitching Machine Operator Family Medicine 09/20/24 Yolie Mars Other 05/30/14 Fpc 12/18/17 clark marr DME 10/25/19 Industrial X Ray Operator Relationship Specialty Start Date End Date Aleksandar Jones MD [address] [place] [place] [address] PCP - General Family Medicine 12/26/14 Koby Ramirez V [address] [place] [address] Internal Medicine 07/22/18 Radha Batista APRN.PBX TEACHER [address] [place] [address] Stitching Machine Operator Family Medicine 09/20/24 Shelia Salmon APRN.PBX TEACHER [address] [place] [place] [address] Stitching Machine Operator Family Medicine 09/20/24 Yolie Mars Other 05/30/14 Fpc 12/18/17 [facility] 10/25/19 Industrial X Ray Operator Relationship Specialty Start Date End Date Aleksandar Jones MD [address] [place] [place] [address] PCP - General Family Medicine 12/26/14 Koby Ramirez V [address] [place] [address] Internal Medicine 07/22/18 Radha Batista APRN.PBX TEACHER [address] [place], [place] [address] [phone] Stitching Machine Operator Family [facility] 09/20/24 Shelia Salmon APRN.PBX TEACHER [address] [place] [place] [address] Stitching Machine Operator Family Medicine 09/20/24 Yolie Mars Other 05/30/14 Fpc 12/18/17 clark marr DME 10/25/19 Industrial X Ray Operator Relationship Specialty Start Date End Date Aleksandar Jones MD [address] [place], [place] [address] PCP - General Family Medicine 12/26/14 Koby Ramirez V [address] [place] [address] Internal Medicine 07/22/18 Radha Batista, MANAGER REGIONAL.PBX TEACHER [address] [place] [address] Stitching Machine Operator Family Medicine 09/20/24 Shelia Salmon MANAGER REGIONAL.PBX TEACHER [address] [place] [place] [address] Stitching Machine Operator Family Medicine 09/20/24 Yolie Mars Other 05/30/14 Fpc 12/18/17 clark justa DME 10/25/19 Industrial X Ray Operator Relationship Specialty Start Date End Date Aleksandar Jones MD [address] [place] [place] [address] PCP - General Family Medicine 12/26/14 Koby Ramirez V [address] [place] [address] Internal Medicine 07/22/18 Radha Batista, MANAGER REGIONAL.PBX TEACHER [address] [place] [address] Stitching Machine Operator Family Medicine 09/20/24 Shelia Salmon APRN.PBX TEACHER [address] [place] [place] [place] [address] Stitching Machine Operator Family Medicine 09/20/24 Yolie Mars Other 05/30/14 Fpc 12/18/17 [facility] 10/25/19 Industrial X Ray Operator Relationship Specialty Start Date End Date Aleksandar Jones MD [address] [place] [place] [address] PCP - General Family Medicine 12/26/14 Koby Ramirez V [address] [place] [address] Internal Medicine 07/22/18 Radha Batista APRN.PBX TEACHER [address] [place] [place] [place] [address] Stitching Machine Operator Family Medicine 09/20/24 hSelia Salmon, MANAGER REGIONAL.PBX TEACHER [address] [place] [place] [place] [address] Stitching Machine Operator Family Medicine 09/20/24 Yolie Mars Other 05/30/14 [facility]pc 12/18/17 [facility] 10/25/19 Industrial X Ray Operator Relationship Specialty Start Date End Date Aleksandar Jones MD [address] [place] [place] [place] [address] PCP - General Family Medicine 12/26/14 Koby Ramirez V [address] [place] [address] Internal Medicine 07/22/18 Radha Batista APRN.PBX TEACHER [address] [place] [place] [address] Stitching Machine Operator Family Medicine 09/20/24 Shelia Salmon APRN.PBX TEACHER [address] [place] [place] [address] Stitching Machine Operator Family Medicine 09/20/24 Yolie Mars Other 05/30/14 Fpc 12/18/17 [facility] 10/25/19 Industrial X Ray Operator Relationship Specialty Start Date End Date Aleksandar Jones MD [address] [place] [place] [address] PCP - General Family Medicine 12/26/14 Koby Ramirez V [address] [place] [address] Internal Medicine 07/22/18 Radha Batista APRN.PBX TEACHER [address] [place] [address] Stitching Machine Operator Family Medicine 09/20/24 Shelia Salmon APRN.PBX TEACHER [address] [place] [place] [address] Stitching Machine Operator Family Medicine 09/20/24 Yolie Mars Other 05/30/14 [facility] 12/18/17 clark marr DME 10/25/19 Industrial X Ray Operator Relationship Specialty Start Date End Date Aleksandar Jones MD [address] [place], [place] [address] PCP - General Family Medicine 12/26/14 Koby Ramirez V [address] [place] [address] Internal Medicine 07/22/18 Radha Batista APRN.PBX TEACHER [address] [place] [place] [address] Stitching Machine Operator Family Medicine 09/20/24 Shelia Salmon APRN.PBX TEACHER [address] [place] [place] [address] Stitching Machine Operator Family Medicine 09/20/24 Yolie Elliottarturo Other 05/30/14 [facility]pc 12/18/17 clark marr DME 10/25/19 Industrial X Ray Operator Relationship Specialty Start Date End Date Aleksandar Jones MD [address] [place] [place] [address] PCP - General Family Medicine 12/26/14 Koby Ramirez V [address] [place] [address] Internal Medicine 07/22/18 Radha Batista APRN.PBX TEACHER [address] [place] [place] [place] [address] Stitching Machine Operator Family Medicine 09/20/24 Shelia Salmon MANAGER REGIONAL.PBX TEACHER [address] [place] [place] [address] Stitching Machine Operator Family Medicine 09/20/24 Yolie Mars Other 05/30/14 [facility] 12/18/17 [facility] 10/25/19 Industrial X Ray Operator Relationship Specialty Start Date End Date Aleksandar Jones MD [address] [place] [place] [address] PCP - General Family Medicine 12/26/14 Koby Ramirez V [address] [place] [address] [place] [address] Internal Medicine 07/22/18 Radha Batista MANAGER REGIONAL.PBX TEACHER [address] [place] [address] Stitching Machine Operator Family Medicine 09/20/24 Shelia Salmon, MANAGER REGIONAL.PBX TEACHER [address] [place] [address] Stitching Machine Operator Family Medicine 09/20/24 Yolie Mars Other 05/30/14 [facility] 12/18/17 [facility] 10/25/19 Industrial X Ray Operator Relationship Specialty Start Date End Date Aleksandar Jones MD [address] [place] [address] [place] [address] PCP - General Family Medicine 12/26/14 Koby Ramirez V [address] [place] [address] Internal Medicine 07/22/18 Radha Batista APRN.PBX TEACHER [address] [place] [address] Stitching Machine Operator Family Medicine 09/20/24 Shelia Salmon APRN.PBX TEACHER [address] [place] [place] [address] Stitching Machine Operator Family Medicine 09/20/24 Yolie Mars Other 05/30/14 [facility] 12/18/17 clark marr DME 10/25/19 Industrial X Ray Operator Relationship Specialty Start Date End Date Aleksandar Jones MD [address] [place] [address] PCP - General Family Medicine 12/26/14 Koby Ramirez V [address] [place] [address] Internal Medicine 07/22/18 Radha Batista APRN.PBX TEACHER [address] [place] [place] [address] Stitching Machine Operator Family Medicine 09/20/24 Shelia Salmon MANAGER REGIONAL.PBX TEACHER [address] [place] [place] [address] Stitching Machine Operator Family Medicine 09/20/24 Yolie Mars Other 05/30/14 [facility] 12/18/17 clark marr DME 10/25/19 Industrial X Ray Operator Relationship Specialty Start Date End Date Aleksandar Jones MD [address] [place] [address] PCP - General Family Medicine 12/26/14 Koby Ramirez V [address] [place] [address] Internal Medicine 07/22/18 Radha Batista APRN.PBX TEACHER [address] [place] [address] Stitching Machine Operator Family Medicine 09/20/24 Shelia Salmon APRN.PBX TEACHER [address] [place] [address] Stitching Machine Operator Family Medicine 09/20/24 Yolie Mars Other 05/30/14 [facility] 12/18/17 [facility] 10/25/19 Industrial X Ray Operator Relationship Specialty Start Date End Date Aleksandar Jones MD [address] [place] [address] PCP - General Family Medicine 12/26/14 Koby Ramirez V [address] [place] [phone] Internal Medicine 07/22/18 Radha Batista APRN.PBX TEACHER [address] [place] [address] Stitching Machine Operator Family [facility] 09/20/24 Shelia Salmon APRN.PBX TEACHER [address] [place] [address] Stitching Machine Operator Family Medicine 09/20/24 Yolie Mars Other 05/30/14 [facility] 12/18/17 [facility] 10/25/19 Team Status: Active Member Role Status Dates Shelia Salmon , DENTAL MOLD MAKER Primary Care Provider Active Team Status: Inactive Member Role Status Dates Dr. Aleksandar Jones MD Family Provider Active Sta rt: August 25, 2024 End: September 11, 2024 Dr. Lorraine Springer MD Attending Provider Active Start: August 25, 2024 End: September 11, 2024 Dr. Lorraine Springer MD Referring Provider Active Start: August 25, 2024 End: September 11, 2024 Shelia Salmon , DENTAL MOLD MAKER Primary Care Provider Active Start: August 25, [...] 2024 End: September 16, 2024 Shelia Salmon , DENTAL MOLD MAKER Primary Care Provider Active Start: September 16, [...] End: October 14, 2024 Shelia Salmon , DENTAL MOLD MAKER Primary Care Provider Active Start: October 14, 2024 End: October 14, 2024 Team Status: Inactive Member Role Status Dates Shelia Pardoan , DENTAL MOLD MAKER Primary Care Provider Active Start: October 14, 2024 End: October 14, 2024 Dr. Tae Holland DO Attending Provider Active Start: October 14, 2024 End: October 14, 2024 Dr. Tae Amalia , DO Referring Provider Active Start: October 14, 2024 End: October 14, 2024 Dr. Tae Holland , DO Emergency Provider Active Start: October 14, 2024 End: October 14, 2024 Team Status: Inactive Member Role Status Dates Shelia Suppan , DENTAL MOLD MAKER Primary Care Provider Active Start: November 09, 2024 End: November 12, 2024 Dr. Francisco Thompson , DO Emergency Provider Active Start: November 09, 2024 End: November 12, 2024 Dr. Hesham Amato , DO Admit Provider Active Start: November 09, 2024 End: November 12, 2024 Dr. Hesham Amato , DO Other Provider Active Start: November 09, 2024 End: November 12, 2024 Dr. Ana Lilia Lebron , DO Attending Provider Active Start: November 09, 2024 End: November 12, 2024 Team Status: Active Member Role Status Dates Shelia Suppan , DENTAL MOLD MAKER Primary Care Provider Active Start: November 10, 2024 Dr. Francisco Thompson , Emergency Provider Active Start: November 10, 2024 Dr. Hesham Amato , DO Admit Provider Active Start: November 10, 2024 Dr. Hesham Aamto , DO Other Provider Active Start: November 10, 2024 Dr. Ana Lilia Lebron , Attending Provider Active Start: November 10, 2024 Dr. Ana Lilia Lebron , DO Other Provider Active S tart: November 10, 2024 Team Status: Active Member Role Status Dates Shelia Suppan , DENTAL MOLD MAKER Primary Care Provider Active Start: November 11, 2024 Dr. Francisco Thompson DO Emergency Provider Active Start: November 11, 2024 Dr. Hesham Amato DO Admit Provider Active Start: November 11, 2024 Dr. Hesham Amato , DO Other Provider Active Start: November 11, 2024 Dr. Ana Lilia Lebron , DO Attending Provider Active Start: November 11, 2024 Dr. Ana Lilia Lebron , DO Other Provider Active S tart: November 11, 2024 Team Status: Active Member Role Status Dates Shelia Suppan , DENTAL MOLD MAKER Primary Care Provider Active Start: November 12, 2024 Dr. Francisco Thompson , Emergency Provider Active Start: November 12, 2024 Dr. Hesham Amato , DO Admit Provider Active Start: November 12, [...] December 08, 2024 End: December 10, 2024 Sheliacam Salmon , DENTAL MOLD MAKER Primary Care Provider Active Start: December 08, 2024 End: December 10, 2024 Team Status: Inactive Member Role Status Dates Shelia Pardoan , DENTAL MOLD MAKER Primary Care Provider Active Start: December 21, 2024 End: December 21, 2024 Dr. Babak Garcia DO Emergency Provider Active Start: December 21, 2024 End: December 21, 2024 Team Status: Active Member Role Status Dates Dr. Aleksandar Jones MD Family Provider Active Shelia Suppan , DENTAL MOLD MAKER Primary Care Provider Active Team Status: Inactive Member Role Status Dates Shelia Pardoan , DENTAL MOLD MAKER Primary Care Provider Active Start: December 21, [...] End: January 04, 2025 Shelia Salmon , DENTAL MOLD MAKER Primary Care Provider Active Start: January 04, 2025 End: January 04, 2025 Industrial X Ray Operator Relationship Specialty Start Date End Date Aleksandar Jones MD [address] [place] [address] PCP - General Family Medicine 12/26/14 Koby Ramirez V [address] [place] [phone] Internal Medicine 07/22/18 Radha Batista, MANAGER REGIONAL.PBX TEACHER [address] [place] [address] Stitching Machine Operator Family Medicine 09/20/24 Shelia Salmon MANAGER REGIONAL.PBX TEACHER [address] [place] [address] Stitching Machine Operator Family Medicine 09/20/24 Yolie Mars Other 05/30/14 [facility] 12/18/17 [facility] 10/25/19 Industrial X Ray Operator Relationship Specialty Start Date End Date Aleksandar Jones MD [address] [place] [address] PCP - General Family Medicine 12/26/14 Koby Ramirez V [address] [place] [phone] Internal Medicine 07/22/18 Radha Batista, MANAGER REGIONAL.PBX TEACHER [address] [place] [address] Stitching Machine Operator Family Medicine 09/20/24 Shelia Salmon MANAGER REGIONAL.PBX TEACHER [address] [place] [address] Stitching Machine Operator Family Medicine 09/20/24 Yolie Mars Other 05/30/14 [facility] 12/18/17 [facility] 10/25/19 Industrial X Ray Operator Relationship Specialty Start Date End Date Aleksandar Jones MD [address] [place], [place] [address] PCP - General Family Medicine 12/26/14 Koby Ramirez V [address] [place] [phone] Internal Medicine 07/22/18 Radha Batista, MANAGER REGIONAL.PBX TEACHER [address] [place] [place] [address] Stitching Machine Operator Family Medicine 09/20/24 Shelia Salmon MANAGER REGIONAL.PBX TEACHER [address] [place] [address] Stitching Machine Operator Family Medicine 09/20/24 Yolie Mars Other 05/30/14 [facility] 12/18/17 [facility] 10/25/19 Industrial X Ray Operator Relationship Specialty Start Date End Date Aleksandar Jones MD [address] [place] [place] [address] PCP - General Family Medicine 12/26/14 Koby Ramirez V [address] [place] [phone] Internal Medicine 07/22/18 Radha Batista, MANAGER REGIONAL.PBX TEACHER [address] [place] [address] Stitching Machine Operator Family Medicine 09/20/24 Shelia Salmon, MANAGER REGIONAL.PBX TEACHER [address] [place] [address] Stitching Machine Operator Family Medicine 09/20/24 Yolie Mars Other 05/30/14 [facility] 12/18/17 [facility] 10/25/19 Industrial X Ray Operator Relationship Specialty Start Date End Date Aleksandar Jones MD [address] [place] [address] PCP - General Family Medicine 12/26/14 Koby Ramirez V [address] [place] [address] Internal Medicine 07/22/18 Radha Batista, MANAGER REGIONAL.PBX TEACHER [address] [place] [address] Stitching Machine Operator Family Medicine 09/20/24 Shelia Salmon, MANAGER REGIONAL.PBX TEACHER [address] [place] [address] Stitching Machine Operator Family Medicine 09/20/24 Yolie Mars Other 05/30/14 [facility] 12/18/17 [facility] 10/25/19 Industrial X Ray Operator Relationship Specialty Start Date End Date Aleksandar Jones MD [address] [place] [address] PCP - General Family Medicine 12/26/14 Koby Ramirez V [address] [place] [address] Internal Medicine 07/22/18 Radha Batista APRN.PBX TEACHER [address] [place] [address] Stitching Machine Operator Family Medicine 09/20/24 Shelia Salmon MANAGER REGIONAL.PBX TEACHER [address] [place] [address] Stitching Machine Operator Family Medicine 09/20/24 Yolie Mars Other 05/30/14 [facility] 12/18/17 [facility] 10/25/19 Industrial X Ray Operator Relationship Specialty Start Date End Date Aleksandar Jones MD [address] [place] [address] PCP - General Family Medicine 12/26/14 Koby Ramirez V [address] [place] [address] Internal Medicine 07/22/18 Radha Batista APRN.PBX TEACHER [address] [place] [address] Stitching Machine Operator Family Medicine 09/20/24 Shelia Salmon APRN.PBX TEACHER [address] [place] [address] Stitching Machine Operator Family Medicine 09/20/24 Yolie Mars Other 05/30/14 [facility] 12/18/17 [facility] 10/25/19 Industrial X Ray Operator Relationship Specialty Start Date End Date Aleksandar Jones MD [address] [place], [place] [address] PCP - General Family Medicine 12/26/14 Koby Ramirez V [address] [place] [address] Internal Medicine 07/22/18 Radha Batista APRN.PBX TEACHER [address] [place], [place] [id number] Stitching Machine Operator Family Medicine 09/20/24 Shelia Salmon APRN.PBX TEACHER [address] [place], [place] [id number] Stitching Machine Operator Family Medicine 09/20/24 Yolie Mars Other 05/30/14 [facility] 12/18/17 [facility] 10/25/19 Team Status: Active Member Role Status Dates Dr. Aleksandar Jones MD Primary Care Provider Active Team Status: Inactive Member Role Status Dates Dr. Aleksandar Jones MD Primary Care Provider Active Start: February 02, 2025 End: February 09, 2025 Dr. Aleksandar Jones MD Family Provider Active Sta rt: February 02, 2025 End: February 09, 2025 Dr. Lorraine Springer MD Attending Provider Active Start: February 02, 2025 End: February 09, 2025 Dr. Lorraine Springer MD Referring Provider Active Start: February 02, 2025 End: February 09, 2025 Team Status: Inactive Member Role Status Dates Dr. Aleksandar Jones MD Primary Care Provider Active Start: March 01, 2025 End: March 01, 2025 [facility] Attending Provider Acti ve Start: March 01, 2025 End: March 01, 2025 Industrial X Ray Operator Relationship Specialty Start Date End Date Aleksandar Jones MD [address] [place], [place] [address] PCP - General Family Medicine 12/26/14 Koby Ramirez V [address] [place] [phone] Internal Medicine 07/22/18 Radha Batista APRN.PBX TEACHER [address] [place] [address] Stitching Machine Operator Family Medicine 09/20/24 Shelia Salmon APRN.PBX TEACHER [address] [place] [address] Stitching Machine Operator Family Medicine 09/20/24 Yolie Mars Other 05/30/14 [facility] 12/18/17 [facility] 10/25/19 Industrial X Ray Operator Relationship Specialty Start Date End Date Aleksandar Jones MD [address] [place] [address] PCP - General Family Medicine 12/26/14 Koby Ramirez V [address] [place] [phone] Internal Medicine 07/22/18 Radha Batista APRN.PBX TEACHER [address] [place] [address] Stitching Machine Operator Family Medicine 09/20/24 Shelia Salmon APRN.PBX TEACHER [address] [place] [address] Stitching Machine Operator Family Medicine 09/20/24 Yolie Mars Other 05/30/14 [facility] 12/18/17 [facility] 10/25/19 Team Status: Active Member Role/Relationship Status Dates Dr. Aleksandar Jones MD Primary Care Provider Active Team Status: Inactive Member Role/Relationship Status Dates Dr. Aleksandar Jones MD Primary Care Provider Active Start: February 02, 2025 End: February 09, 2025 Dr. Aleksandar Jones MD Family Provider Active Sta rt: February 02, 2025 End: February 09, 2025 Dr. Lorraine Springer MD Attending Provider Active Start: February 02, 2025 End: February 09, 2025 Dr. Lorraine Springer MD Referring Provider Active Start: February 02, 2025 End: February 09, 2025 Team Status: Inactive Member Role/Relationship Status Dates Dr. Aleksandar Jones MD Primary Care Provider Active Start: March 01, 2025 End: March 01, 2025 [facility] Attending Provider Acti ve Start: March 01, 2025 End: March 01, 2025 Team Status: Active Member Role/Relationship Status Dates Dr. Aleksandar Jones MD Primary Care Provider Active Start: March 28, 2025 Aleksandar MADRID Attending Provider Active Start : March 28, 2025 Team Status: Active Member Role/Relationship Status Dates Dr. Aleksandar Jones MD Primary Care Provider Active Start: April 11, 2025 Aleksandar MADRID Attending Provider Active Start : April 11, 2025 Team Status: Active Member Role/Relationship Status Dates Dr. Aleksandar Jones MD Primary Care Provider Active Start: April 26, 2025 [facility] Attending Provider Acti ve Start: April 26, 2025 Team Status: Active Member Role/Relationship Status Dates Dr. Koby Ramirez MD Attending Provider Active Start: May 06, 2025 Dr. Koby Ramirez MD Referring Provider Active Start: May 06, 2025 Dr. Aleksandar Jones MD Primary Care Provider Active Start: May 06, 2025 Team Status: Inactive Member Role/Relationship Status Dates Dr. Aleksandar Jones MD Primary Care Provider Active Start: May 10, 2025 End: May 10, 2025 Dr. Aleksandar Jones MD Referring Provider Active Start: May 10, 2025 End: May 10, 2025 MAKSIM Razo Attending Provider Active Start: May 10, 2025 End: May 10, 2025 Team Status: Inactive Member Role/Relationship Status Dates Dr. Koby Ramirez MD Attending Provider Active Start: May 06, 2025 End: May 06, 2025 Dr. Koby Ramirez MD Referring Provider Active Start: May 06, 2025 End: May 06, 2025 Dr. Aleksandar Jones MD Primary Care Provider Active Start: May 06, 2025 End: May 06, 2025 FOR RECORDS PERTAINING TO PATIENTS WHO ARE [...] BE BASED ON THE PRIMARY CLINICAL RECORDS. [employer] provides no warranty or guarantee of the accuracy or completeness of information in this document.
[2025-05-24 07:09] LABS: Hematocrit 39.5 % (37-47); Hemoglobin 13.3 g/dL (12.0-15.0); Immature Granulocytes Count 0.070 X10^3/uL (0.0-0.0); Mean Corp Hgb Conc 33.7 g/dL (32-36); Mean Corpuscular Volume 89.4 fL (81-99); Mean Platelet Vol. 10.1 fl (6.2-12.0); NRBC Flagged by Analyzer 0 % (0-5); POSITIVE MORPHOLOGY YES; Platelet Count 220 K/mm3 (150-450); RBC Distribution Width CV 13.3 % (11.6-14.6); RBC Distribution Width SD 43.7 fl (35.1-43.9); Red Blood Count 4.42 M/mm3 (4.2-5.4); White Blood Count 8.1 K/mm3 (4.4-11.0)
[2025-05-24 07:29] LABS: Differential Indicated SCAN CRITERIA MET
== END ==
LOC: OLS.SWAL 05:00
PROVIDERS: PCP Family Medicine
DX: Z79.899 Other long term (current) drug therapy (principal)
CPT/HCPCS: 36415; 85025

== ENCOUNTER → 2025-06-21 | Outpatient (REF) | payer MEDICARE, MEDICAID, SELFPAY ==
[2025-06-21 09:29] LABS: Hematocrit 39.5 % (37-47); Hemoglobin 13.0 g/dL (12.0-15.0); Immature Granulocytes Count 0.060 X10^3/uL (0.0-0.0); Mean Corp Hgb Conc 32.9 g/dL (32-36); Mean Corpuscular Volume 88.8 fL (81-99); Mean Platelet Vol. 11.1 fl (6.2-12.0); NRBC Flagged by Analyzer 0 % (0-5); Platelet Count 226 K/mm3 (150-450); RBC Distribution Width CV 13.0 % (11.6-14.6); RBC Distribution Width SD 42.5 fl (35.1-43.9); Red Blood Count 4.45 M/mm3 (4.2-5.4); White Blood Count 11.9 K/mm3 (4.4-11.0)
== END ==
LOC: OLS.SWAL 05:00
PROVIDERS: PCP Family Medicine
DX: I10 Essential (primary) hypertension (principal)
CPT/HCPCS: 36415; 85025

== ENCOUNTER 2025-06-23 07:58 | Day surgery (SDC) | payer MEDICARE, MEDICAID, SELFPAY ==
[2025-06-23] VITALS (8 sets, daily range): BP systolic 107–137; BP diastolic 59–73; PULSE 74–100; RESP 16–18; TEMP 36.2–36.3; O2SAT 93–100; BMI 35.4
[2025-06-23] MEDS: Lactated Ringers 1,000 ML 15 ML IV (09:50)
--- NOTE | 2025-06-23 09:54 | PCM.HP.STD ---
HPI - General General Date of Admission: 06/23/25 Date of Service: 06/23/25 Chief Complaint: nausea, abdominal pain HPI Narrative BRITTNEE TAFOYA, is a 59 F who presents with the Chief Complaint: abdominal symptoms Pt presenting unaccompanied from assisted living facility. She endorses feeling unwell with symptoms including abd pain and nausea. Abdominal pain is constant. She has daily nausea mostly once she starts eating. SHe does not vomit. Her bowels alternate between constipation and diarrhea. She will go 2-3 days without a bm. She denies heartburn. She is on omeprazole 20 mg daily. She has had a colonoscopy in the past but is unsure when this was. She has never had an EGD. [facility] Medical History Wears glasses Wears dentures Insulin dependent diabetes mellitus Back pain Gastric reflux Former smoker BiPAP (biphasic positive airway pressure) dependence Sleep apnea Shortness of breath on exertion History of edema Hypertension Obesity (BMI 30-39.9) Hyponatremia Leukocytosis Respiratory insufficiency COPD exacerbation Pneumonia LIDA on CPAP Obesity Anxiety and depression Type 2 diabetes mellitus COPD (chronic obstructive pulmonary disease) Restless leg syndrome GERD (gastroesophageal reflux disease) COPD exacerbation Schizophrenia HTN (hypertension) Hyperlipidemia Home Medications ?Medication ?Instructions ?Recorded ?Last Taken ?Type cholecalciferol (vitamin D3) 25 1,000 unit PO DAILY SUPPLEMENT 10/17/17 06/22/25 History mcg (1,000 unit) capsule (Vitamin D3) aspirin 325 mg tablet,delayed 325 mg PO DAILY@1600 [facility] 07/22/18 06/22/25 History release potassium chloride 20 mEq 20 meq PO DAILY supplement 11/16/19 06/22/25 History tablet,extended release(part/cryst) clozapine 100 mg tablet 100 mg PO 4X/DAY SCHIZOPHRENIA 07/30/21 06/22/25 History empagliflozin 10 mg tablet 10 mg PO DAILY diabetes 07/30/21 06/22/25 History (Jardiance) furosemide 20 mg tablet 20 mg PO DAILY FLUID 07/30/21 06/22/25 History insulin glargine 100 unit/mL (3 60 unit subcut QHS DM 07/30/21 06/22/25 History mL) subcutaneous pen (Lantus Solostar U-100 Insulin) metoprolol succinate 25 mg 25 mg PO QHS HTN 07/30/21 06/22/25 History tablet,extended release 24 hr clonazepam 0.5 mg tablet 0.5 mg PO BID schizophrenia 06/05/22 06/22/25 History ferrous sulfate 325 mg (65 mg 325 mg PO BID anemia 06/05/22 06/22/25 History iron) tablet (Feosol) pramipexole 0.5 mg tablet 0.5 mg PO QHS restless legs 06/05/22 06/22/25 History haloperidol 2 mg tablet 2 mg PO QHS anxiety 08/14/23 06/22/25 History metformin 500 mg tablet,extended 1,000 mg PO BID Diabetes 08/14/23 06/22/25 History release 24 hr benztropine 0.5 mg tablet 0.5 mg PO BID tremors 08/15/23 06/22/25 History peg 3350-electrolytes 236 240 ml PO Q10M PRN #4,000 mL 12/13/23 06/22/25 Rx gram-22.74 gram-6.74 gram-5.86 gram solution (Golytely) docusate sodium 100 mg capsule 100 mg PO BID 11/09/24 06/22/25 History fluticasone furoate 100 1 inh inhalation DAILY 11/09/24 06/22/25 History mcg-vilanterol 25 mcg/dose inhalation powder (Breo Ellipta) gabapentin 100 mg capsule 200 mg PO TID 11/09/24 06/22/25 History guaifenesin 600 mg tablet, 1,200 mg PO DAILY 11/09/24 06/22/25 History extended release 12 hr (Mucus Relief ER) omega-3 fatty acids-fish oil 300 1 cap PO QHS 11/09/24 06/22/25 History mg-1,000 mg capsule paliperidone palmitate 234 mg/1.5 234 mg IM QHS 11/09/24 06/22/25 History mL intramuscular syringe (Invega Sustenna) acetaminophen 325 mg tablet 325 mg PO Q4H PRN pain 06/21/25 Unknown History albuterol sulfate 2.5 mg/3 mL 2.5 mg inhalation 4X/DAY PRN PRN 06/21/25 Unknown History (0.083 %) solution for nebulization wheezing albuterol sulfate 90 mcg/actuation 2 puff inhalation Q4H PRN 06/21/25 Unknown History aerosol inhaler shortness of breath or wheezing aluminum-magnesium hydroxide 200 30 ml PO Q4H PRN dyspepsia 06/21/25 Unknown History mg-200 mg/5 mL oral suspension clonazepam 1 mg tablet 1 mg PO QHS 06/21/25 06/22/25 History insulin lispro 100 unit/mL 1 sliding scale dose subcut .CM 06/21/25 06/22/25 History subcutaneous solution (Humalog U-100 Insulin) omeprazole 20 mg capsule,delayed 20 mg PO BID 06/21/25 06/22/25 History release Allergy/AdvReac Type Severity Reaction Status Date / Time No Known Allergies Allergy Verified 06/23/25 09:33 Family History Mother Heart disease Hypertension Father COPD (chronic obstructive pulmonary disease) Cancer Surgical History History of mandibular surgery History of cholecystectomy Social History housing: other details: intermediate. Smoking Status: Former smoker how long ago did patient quit smoking: Quit 10 years prior to 08/14/23 presentation, 2 ppd since teen until quit. alcohol intake: never substance use type: does not use ROS Constitutional Constitutional: Denies fatigue, fever(s), poor appetite, weight gain or weight loss Gastrointestinal Gastrointestinal: Denies belching, bloating, change in bowel habits, change in stool character, chewing difficulty, coffee ground emesis, constipation, cramping, diarrhea, dyspepsia, dysphagia, early satiety, excessive flatus, fecal incontinence, heartburn, hematemesis, hematochezia, hemorrhoids, loose stools, melena, nausea, odynophagia, rectal bleeding, tenesmus, vomiting or weight changes Vital Signs Vital Signs Vital Signs: 06/23/25 09:36 06/23/25 09:36 Temperature 97.4 F L Temperature Source Temporal Pulse Rate 96 Respiratory Rate 18 Respiratory Pattern Normal Blood Pressure 137/73 H Blood Pressure Mean 94 Blood Pressure Source Monitor Blood Pressure Position Semi-Fowlers Blood Pressure Location Left Arm Pulse Ox 93 Oxygen Delivery Method Room Air Weight Weight: 187 lb 6.287 oz Body Mass Index (BMI) 35.4 Physical Exam Const alert, oriented x3, no apparent distress and healthy appearing General Appearance: cooperative GI normal to inspection, nondistended, normoactive bowel sounds, soft to palpation, non-tender and non-distended Percussion: normal to percussion Rectal Exam: deferred Assessment & Plan Assessment/Plan (1) Nausea: (2) Abdominal pain: (3) Dysphagia: PLAN: Assessment and Plan Assessment and Plan (1) Constipation: (2) Abdominal pain: Status: Acute Plan: Brittnee is a 59 yo female pt who resides in an assisted living facility here today for evaluation of GI symptoms. Pt is unaccompanied today and she may be a poor historian. SHe does not come to the office with any paper work or medication list. Pt endorses nausea, abd pain, constipation and loose stools. She is unsure if this is new for her. She has had a colonoscopy in the past but unclear when this was. I have increased her omeprazole to twice a day dosing. She will undergo EGD and colonoscopy for assessment of her upper and lower GI tract. -EGD -Colonoscopy -Increase PPI -f/u after procedure (3) Nausea: Status: Acute Medications: Changed From omeprazole 20 mg PO DAILY indigestion To omeprazole 20 mg PO BID 90 caps 3RF indigestion
--- NOTE | 2025-06-23 10:43 | PCM.PRE.AN2 ---
ASA Classification* ASA Classification ASA Classification: 4 Assessment & Plan Anesthesia* Anesthesia Assessment Anesthesia Assessment: Discussed sedation and/or anesthesia options, risks, benefits, and alternatives with patient/parents/legal guardian/POA. Questions invited. The patient/parents/legal guardian/POA seems to understand and agrees to proceed with anesthesia plan. Reviewed the physical assessment, medical history, allergy history and patient home medications list prior to surgery/procedure/anesthetic and documented any changes. Performed airway and anesthesia risk assessments. Anesthesia Type Anesthesia Type: MAC History Source History Obtained from:: Patient and Chart Anesthesia Focused Assessment* Temperature: 97.4 F Pulse Rate: 96 Blood Pressure: 137/73 Respiratory Rate: 18 Pulse Ox: 93 Oxygen Delivery Method: Room Air Airway Assessment Mouth opens: 2 cm Mallampati Score: IV Teeth Condition: Dentures (Patient has full upper and lower dentures. They are out.) Neck Range of motion (ROM): Limited ROM (Somewhat Decreased) Labs Anesthesia Preop lab: CBC WBC 11.9 K/mm3 (4.4-11.0) H 06/21/25 07:20 06/21/25 RBC 4.45 M/mm3 (4.2-5.4) 06/21/25 07:20 06/21/25 Hgb 13.0 g/dL (12.0-15.0) 06/21/25 07:20 06/21/25 Hct 39.5 % (37-47) 06/21/25 07:20 06/21/25 Plt Count 226 K/mm3 (150-450) 06/21/25 07:20 06/21/25 CHEMISTRY Potassium 4.4 mmol/L (3.3-5.1) 04/11/25 10:35 04/11/25 Sodium 129 mmol/L (133-145) L 04/11/25 10:35 04/11/25 Magnesium 2.2 mg/dL (1.6-2.6) 11/10/24 07:01 11/10/24 Phosphorus 3.2 mg/dL (2.5-4.9) 11/10/24 07:01 11/10/24 BUN 11 mg/dL (4-19) 04/11/25 10:35 04/11/25 Creatinine 0.56 mg/dL (0.70-1.20) L 04/11/25 10:35 04/11/25 Glucose 88 mg/dL (70-99) 04/11/25 10:35 04/11/25 POC Glucose 119 mg/dL (74-106) H 06/23/25 09:32 06/23/25 TSH 0.831 uIU/mL (0.358-3.740) 11/10/24 07:01 11/10/24 COAG PT 13.0 SECONDS (11.7-14.9) 12/21/24 08:58 12/21/24 Pre-Assessment Diagnosis/Proposed Procedure Planned Operative Procedure(s): COLONOSCOPY, EGD Anesthesia History 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 When Was Last Pacemaker Check QUESTION #4 FULL TEXT: You/Your Family Experience fever (hyperthermia) with Anesthesia Last Oral Intake Last Oral intake: Last Oral Intake NPO since 07:30 06/23/25 09:36 Meds taken in AM with sips of No 06/23/25 09:36 water? Meds patient instructed to take am of surgery Any additional information?: Yes NPO since: 07:30 (Patient finished her prep at 7:30 AM.) Meds taken in AM with sips of water?: No PONV PONV - portable irrigation operator: PONV - portable irrigation operator Female Yes 06/21/25 12:00 HX of Motion Sickness No 06/21/25 12:00 HX of N/V After Surgery No 06/21/25 12:00 Non-Smoker Yes 06/21/25 12:00 Duration of Surgery greater No 06/21/25 12:00 than 60 minutes Number of Risk Factors 2 06/21/25 12:00 PONV Score Moderate Risk 06/21/25 12:00 Height & Weight Height & Weight: Anesthesia: Height & Weight Height 5 ft 1 in 06/23/25 09:36 Weight: 85 kg 06/23/25 09:36 Body Mass Index (BMI) 35.4 06/23/25 09:36 Respiratory Assessment Respiratory Assessment - portable irrigation operator: Respiratory Tract Infection Hx - portable irrigation operator Hx Respiratory Tract Infection Yes: COMPLETED ATB 06/21/25 12:00 Any additional information?: Yes Hx Respiratory Tract Infection: Yes (Patient was on antibiotics for airway infection. She has been done with it) History of Anesthesia Respiratory Infection details: Patient was on antibiotics for airway infection. She has been done with it for over a week. STOP Sleep Apnea STOP Sleep Apnea - portable irrigation operator: STOP Sleep Apnea - portable irrigation operator Hx Hypertension Yes 06/21/25 12:00 Hx Sleep Apnea Yes 06/21/25 12:00 CPAP No 06/21/25 12:00 BIPAP Yes 06/21/25 12:00 Do you snore loudly (louder than talking or can be heard Do you often feel tired/ fatigued/ sleepy during daytime? Has anyone observed you stop breathing during sleep? STOP Results Positive 06/21/25 12:00 QUESTION #5 FULL TEXT : Do you snore loudly (louder than talking or can be heard through closed doors)? Tobacco Use History Tobacco Use History - portable irrigation operator: Tobacco Use History - portable irrigation operator Tobacco Use Smoking Status Former smoker 06/21/25 12:00 Hx Tobacco Use No 06/21/25 12:00 Years Smoking Packs Smoked per Day Smoking Cessation Date was No - quit smoking greater 06/21/25 12:00 within the last 15 years than 15 years ago Hx Smoking Cessation Date 07/30/20 06/21/25 12:00 Hx Smoking Cessation No 06/21/25 12:00 Counseling Hematologic Medial History Hematologic Hx - portable irrigation operator: Hematologic Medical Hx - internal medicine physician Hx of Blood Transfusion No 06/21/25 12:00 Hx of Transfusion in last 3 No 06/21/25 12:00 Months Date of Last Transfusion (if within last 3 months) Ever experience any problems No 06/21/25 12:00 with transfusion(s)? Specify any problems Hx of Preganancy in last 3 No 06/21/25 12:00 Months Nurse Filling Out Transfusion MGRIFFITH 06/21/25 12:00 & Questions: Date: 06/21/25 06/21/25 12:00 Time: 12:03 06/21/25 12:00 Patient unable to answer at this time (ie. confused, unrespo /Reproduction History /Reproductive History - portable irrigation operator: /Reproductive Hx- portable irrigation operator Hx Now No 06/21/25 12:00 Gestational Age (in weeks): EDC: Hx Hx Para Hx Section SAB No 06/21/25 12:00 Active Medications Active Medications: Current Medications Generic Name Dose Route Start Last Admin Trade Name Freq PRN Reason Stop Dose Admin Lactated Ringer's 1,000 mls @ 15 mls/hr 06/23/25 09:30 06/23/25 09:50 IV 15 mls/hr .Q48H JAQUI Administration PFSH Medical History Wears glasses Wears dentures Insulin dependent diabetes mellitus Back pain Gastric reflux Former smoker BiPAP (biphasic positive airway pressure) dependence Sleep apnea Shortness of breath on exertion History of edema Hypertension Obesity (BMI 30-39.9) Hyponatremia Leukocytosis Respiratory insufficiency COPD exacerbation Pneumonia LIDA on CPAP Obesity Anxiety and depression Type 2 diabetes mellitus COPD (chronic obstructive pulmonary disease) Restless leg syndrome GERD (gastroesophageal reflux disease) COPD exacerbation Schizophrenia HTN (hypertension) Hyperlipidemia Home Medications ?Medication ?Instructions ?Recorded ?Last Taken ?Type cholecalciferol (vitamin D3) 25 1,000 unit PO DAILY SUPPLEMENT 10/17/17 06/22/25 History mcg (1,000 unit) capsule (Vitamin D3) aspirin 325 mg tablet,delayed 325 mg PO DAILY@1600 [facility] 07/22/18 06/22/25 History release potassium chloride 20 mEq 20 meq PO DAILY supplement 11/16/19 06/22/25 History tablet,extended release(part/cryst) clozapine 100 mg tablet 100 mg PO 4X/DAY SCHIZOPHRENIA 07/30/21 06/22/25 History empagliflozin 10 mg tablet 10 mg PO DAILY diabetes 07/30/21 06/22/25 History (Jardiance) furosemide 20 mg tablet 20 mg PO DAILY FLUID 07/30/21 06/22/25 History insulin glargine 100 unit/mL (3 60 unit subcut QHS DM 07/30/21 06/22/25 History mL) subcutaneous pen (Lantus Solostar U-100 Insulin) metoprolol succinate 25 mg 25 mg PO QHS HTN 07/30/21 06/22/25 History tablet,extended release 24 hr clonazepam 0.5 mg tablet 0.5 mg PO BID schizophrenia 06/05/22 06/22/25 History ferrous sulfate 325 mg (65 mg 325 mg PO BID anemia 06/05/22 06/22/25 History iron) tablet (Feosol) pramipexole 0.5 mg tablet 0.5 mg PO QHS restless legs 06/05/22 06/22/25 History haloperidol 2 mg tablet 2 mg PO QHS anxiety 08/14/23 06/22/25 History metformin 500 mg tablet,extended 1,000 mg PO BID Diabetes 08/14/23 06/22/25 History release 24 hr benztropine 0.5 mg tablet 0.5 mg PO BID tremors 08/15/23 06/22/25 History peg 3350-electrolytes 236 240 ml PO Q10M PRN #4,000 mL 12/13/23 06/22/25 Rx gram-22.74 gram-6.74 gram-5.86 gram solution (Golytely) docusate sodium 100 mg capsule 100 mg PO BID 11/09/24 06/22/25 History fluticasone furoate 100 1 inh inhalation DAILY 11/09/24 06/22/25 History mcg-vilanterol 25 mcg/dose inhalation powder (Breo Ellipta) gabapentin 100 mg capsule 200 mg PO TID 11/09/24 06/22/25 History guaifenesin 600 mg tablet, 1,200 mg PO DAILY 11/09/24 06/22/25 History extended release 12 hr (Mucus Relief ER) omega-3 fatty acids-fish oil 300 1 cap PO QHS 11/09/24 06/22/25 History mg-1,000 mg capsule paliperidone palmitate 234 mg/1.5 234 mg IM QHS 11/09/24 06/22/25 History mL intramuscular syringe (Invega Sustenna) acetaminophen 325 mg tablet 325 mg PO Q4H PRN pain 06/21/25 Unknown History albuterol sulfate 2.5 mg/3 mL 2.5 mg inhalation 4X/DAY PRN PRN 06/21/25 Unknown History (0.083 %) solution for nebulization wheezing albuterol sulfate 90 mcg/actuation 2 puff inhalation Q4H PRN 06/21/25 Unknown History aerosol inhaler shortness of breath or wheezing aluminum-magnesium hydroxide 200 30 ml PO Q4H PRN dyspepsia 06/21/25 Unknown History mg-200 mg/5 mL oral suspension clonazepam 1 mg tablet 1 mg PO QHS 06/21/25 06/22/25 History insulin lispro 100 unit/mL 1 sliding scale dose subcut .CM 06/21/25 06/22/25 History subcutaneous solution (Humalog U-100 Insulin) omeprazole 20 mg capsule,delayed 20 mg PO BID 06/21/25 06/22/25 History release Allergy/AdvReac Type Severity Reaction Status Date / Time No Known Allergies Allergy Verified 06/23/25 09:33 Family History Mother Heart disease Hypertension Father COPD (chronic obstructive pulmonary disease) Cancer Surgical History History of mandibular surgery History of cholecystectomy Social History housing: other details: [employer]. Smoking Status: Former smoker how long ago did patient quit smoking: Quit 10 years prior to 08/14/23 presentation, 2 ppd since teen until quit. alcohol intake: never substance use type: does not use Review of Systems (Anesthesia) ROS Narrative System reviewed and no additional complaints, except as documented.
--- NOTE | 2025-06-23 11:00 | COLBX_PTH ---
PATIENT: BRENDA TAFOYA LOC: EN U#:[id number] AGE/SX: 59/F ROOM: RE06/23/[address]: Dr. Basil Velasquez DO : 1965 BED: DIS: 06/23/2025 SPEC #: [id number] RECD: 06/23/25 14:34 STATUS: NIRMALA HUGO #: [id number] MG: 06/23/25 11:[address]: Basil Velasquez DEPT: SURGICAL PATHOLOGY RECD BY: Robbie Jimenez ENTERED: 06/23/25 15:20 SP TYPE: COLON BX OTHR DR: Dr. Boris Vance MD Tissues: A - Gastric mucous membrane B - Esophagus, NOS C - COLON BIOPSY Procedures: Surgery Specimen Level IV HEADER OPERATION: Colonoscopy with biopsy, EGD with biopsy PRE-OP DIAGNOSIS: Constipation, abdominal pain, nausea TISSUE SUBMITTED: A- Gastric body biopsy, B- Random esophagus biopsy, C- Random colon biopsy MICROSCOPIC DIAGNOSIS A. Stomach, gastric body, biopsy: Oxyntic mucosa with mild chronic inflammation and reactive changes No morphologic evidence of Helicobacter pylori organisms B. Esophagus, random biopsy: Benign squamous epithelium with fungal organisms (yeast and hyphae) morphologically compatible with dayami C. Colon, random biopsy: Tubular adenoma in one fragment MICROSCOPIC DESCRIPTION Slides are reviewed. GROSS DESCRIPTION A. Received in fixative is one container labeled with the patient's name and designated Gastric body biopsy. The specimen consists of three irregular fragments of light monahan soft tissue that measure 0.2 to 0.4 cm. The specimen is totally submitted in one cassette. B. Received in fixative is one container labeled with the patient's name and designated Random esophagus biopsy. The specimen consists of multiple irregular fragments of light monahan soft tissue that in aggregate measure 0.8 x 0.4 x 0.1 cm. The specimen is totally submitted in one cassette. C. Received in fixative is one container labeled with the patient's name and designated Random colon biopsy. The specimen consists of multiple irregular fragments of light monahan soft tissue that in aggregate measure 1 x 0.8 x 0.1 cm. The specimen is totally submitted in one cassette. [place] 06/23/2025 CPT:88863x1
[2025-06-23] MEDS: Lidocaine 1% (5 ml sdv) 5 ML Vial 10 ML IV (11:24)
--- NOTE | 2025-06-23 12:35 | PCM.POST.ANE ---
Anesthesia: Postop Eval I Current Vital Signs Temperature: 97.4 F Pulse Rate: 74 Blood Pressure: 107/59 Respiratory Rate: 18 Pulse Ox: 94 Oxygen Delivery Method: Room Air Assessment Airway patent: Yes Spontaneous unlabored respirations: Yes Mental status: Awake and Calm nausea: Yes Vomiting: Yes Anesthesia Complication: No Fluid Hydration Crystalloid volume administer (ml): 900 Total IV fluid infused: 900 Progress Note Anesthesia document: Postop Eval 1 completed: No
--- NOTE | 2025-06-23 12:43 | OP.EGD_ITS ---
Patient Name: Brittnee Le Procedure Date: 06/23/2025 11:18 AM Date of : 1965 Age: 59 Procedure: Upper GI endoscopy Indications: Epigastric abdominal pain, Functional Dyspepsia, Indigestion, Suspected esophageal reflux Providers: Basil Velasquez DO Medicines: Monitored Anesthesia Care Patient Profile: This is a 59 year old female. Refer to note in patient chart for documentation of history and physical. Patient has symptoms of chronic abdominal cramping, chronic abdominal distention, acute global abdominal pain, acute nausea and acute vomiting. Complications: No immediate complications. Procedure: Pre-Anesthesia Assessment: - Prior to the procedure, a History and Physical was performed, and patient medications and allergies were reviewed. The patient is competent. The risks and benefits of the procedure and the sedation options and risks were discussed with the patient. All questions were answered and informed consent was obtained. Patient identification and proposed procedure were verified by the physician in the pre-procedure area. Mental Status Examination: alert and oriented. Airway Examination: normal oropharyngeal airway and neck mobility. Respiratory Examination: clear to auscultation. CV Examination: normal. Prophylactic Antibiotics: The patient does not require prophylactic antibiotics. Prior Anticoagulants: The patient has taken no anticoagulant or antiplatelet agents except for NSAID medication. ASA Grade Assessment: II - A patient with mild systemic disease. After reviewing the risks and benefits, the patient was deemed in satisfactory condition to undergo the procedure. The anesthesia plan was to use monitored anesthesia care (MAC). Immediately prior to administration of medications, the patient was re-assessed for adequacy to receive sedatives. The heart rate, respiratory rate, oxygen saturations, blood pressure, adequacy of pulmonary ventilation, and response to care were monitored throughout the procedure. The physical status of the patient was re-assessed after the procedure. After obtaining informed consent, the endoscope was passed under direct vision. Throughout the procedure, the patient's blood pressure, pulse, and oxygen saturations were monitored continuously. The Colonoscope was introduced through the mouth, and advanced to the fourth part of the duodenum. Small bowel enteroscopy was deemed necessary. The upper GI endoscopy was accomplished without difficulty. The patient tolerated the procedure well. Scope In: 11:31:10 AM Scope Out: 11:38:40 AM Total Procedure Duration Time 0 hours 7 minutes 30 seconds Findings: Diffuse severe inflammation characterized by adherent blood, erythema, friability and mucus was found in the entire examined stomach. Biopsies were taken with a cold forceps for histology. Verification of patient identification for the specimen was done. Several biopsies were obtained with cold forceps for histology in a targeted manner in the stomach. Verification of patient identification for the specimen was done. Estimated blood loss was minimal. No gross lesions were noted in the entire examined duodenum. Diffuse, white plaques were found in the entire esophagus. Biopsies were taken with a cold forceps for histology. Verification of patient identification for the specimen was done. Estimated blood loss was minimal. Impression: - Normal esophagus. - Chronic gastritis. Biopsied. - No gross lesions in the entire examined duodenum. - Several biopsies were obtained in the stomach. Recommendation: - Discharge patient to home. - Resume previous diet. - Continue present medications. - Await pathology results. -Carafate 1 g p.o. twice daily x 1 month for gastritis - Ursodiol 250 mg p.o. twice daily for gastritis - Fluconazole 100 mg daily x 14 days for Lo esophagitis Procedure Code(s): --- Professional --- 15865, Small intestinal endoscopy, enteroscopy beyond second portion of duodenum, not including ileum; with biopsy, single or multiple CPT copyright 2021 [employer]. All rights reserved. The codes documented in this report are preliminary and upon vault manager review may be revised to meet current compliance requirements. Basil Velasquez DO 06/23/2025 12:42:38 PM This report has been signed electronically. Number of Addenda: 0 Note Initiated On: 06/23/2025 11:18 AM
--- NOTE | 2025-06-23 12:43 | OP.PROVAT_ITS ---
06/23/2025 Boris Vance Re : Upper GI endoscopy procedure for Brittnee Hanson Rajiv This procedure was performed on June. My impressions and recommendations are as follows: Impressions : - Normal esophagus. - Chronic gastritis. Biopsied. - No gross lesions in the entire examined duodenum. - Several biopsies were obtained in the stomach. Recommendations : - Discharge patient to home. - Resume previous diet. - Continue present medications. - Await pathology results. -Carafate 1 g p.o. twice daily x 1 month for gastritis - Ursodiol 250 mg p.o. twice daily for gastritis - Fluconazole 100 mg daily x 14 days for Lo esophagitis My findings are described in the full procedure note, which is enclosed. If I can be of further assistance, please feel free to contact me at . Sincerely, Basil Velasquez, 06/23/2025 12:42:38 PM This report has been signed electronically.
--- NOTE | 2025-06-23 12:46 | OP.COLON_ITS ---
Patient Name: Brittnee Le Procedure Date: 06/23/2025 11:38 AM Date of : 1965 Age: 59 Procedure: Colonoscopy Indications: Clinically significant diarrhea of unexplained origin Providers: Basil Velasquez DO Medicines: Monitored Anesthesia Care Patient Profile: This is a 59 year old female. Refer to note in patient chart for documentation of history and physical. Patient has symptoms of chronic abdominal cramping, chronic abdominal distention, acute global abdominal pain, acute nausea and acute vomiting. Last Colonoscopy: none. The patient's first colonoscopy is today. Complications: No immediate complications. Procedure: Pre-Anesthesia Assessment: - Prior to the procedure, a History and Physical was performed, and patient medications and allergies were reviewed. The patient is competent. The risks and benefits of the procedure and the sedation options and risks were discussed with the patient. All questions were answered and informed consent was obtained. Patient identification and proposed procedure were verified by the physician in the pre-procedure area. Mental Status Examination: alert and oriented. Airway Examination: normal oropharyngeal airway and neck mobility. Respiratory Examination: clear to auscultation. CV Examination: normal. Prophylactic Antibiotics: The patient does not require prophylactic antibiotics. Prior Anticoagulants: The patient has taken no anticoagulant or antiplatelet agents except for NSAID medication. ASA Grade Assessment: II - A patient with mild systemic disease. After reviewing the risks and benefits, the patient was deemed in satisfactory condition to undergo the procedure. The anesthesia plan was to use monitored anesthesia care (MAC). Immediately prior to administration of medications, the patient was re-assessed for adequacy to receive sedatives. The heart rate, respiratory rate, oxygen saturations, blood pressure, adequacy of pulmonary ventilation, and response to care were monitored throughout the procedure. The physical status of the patient was re-assessed after the procedure. After I obtained informed consent, the scope was passed under direct vision. Throughout the procedure, the patient's blood pressure, pulse, and oxygen saturations were monitored continuously. The Colonoscope was introduced through the anus and advanced to the ileocecal valve. Scope In: 11:41:52 AM Scope Withdrawal Time 0 hours 5 minutes 12 seconds Scope Out: 12:30:18 PM Total Procedure Duration Time 0 hours 48 minutes 26 seconds Findings: The perianal and digital rectal examinations were normal. A few small-mouthed diverticula were found in the recto-sigmoid colon, sigmoid colon and descending colon. The colon (entire examined portion) was grossly redundant. Advancing the scope required withdrawing the scope and replacing with the adult endoscope. An area of significantly congested mucosa was found at the splenic flexure, in the transverse colon, at the hepatic flexure and in the ascending colon. Biopsies were taken with a cold forceps for histology. Verification of patient identification for the specimen was done. Estimated blood loss was minimal. Stool was found in the recto-sigmoid colon, in the sigmoid colon, in the descending colon, in the transverse colon, at the hepatic flexure, in the ascending colon and in the cecum. Impression: - Diverticulosis in the recto-sigmoid colon, in the sigmoid colon and in the descending colon. - Redundant colon. - Congested mucosa at the splenic flexure, in the transverse colon, at the hepatic flexure and in the ascending colon. Biopsied. - Stool in the recto-sigmoid colon, in the sigmoid colon, in the descending colon, in the transverse colon, at the hepatic flexure, in the ascending colon and in the cecum. Recommendation: - Discharge patient to home. - Resume previous diet. - Continue present medications. - Await pathology results. - Repeat colonoscopy in 6 months because the bowel preparation was poor. Procedure Code(s): --- Professional --- 72595, Colonoscopy, flexible; with biopsy, single or multiple CPT copyright 2021 [employer]. All rights reserved. The codes documented in this report are preliminary and upon salesperson women's hats review may be revised to meet current compliance requirements. Basil Velasquez DO 06/23/2025 12:45:35 PM This report has been signed electronically. Number of Addenda: 0 Note Initiated On: 06/23/2025 11:38 AM
--- NOTE | 2025-06-23 12:46 | OP.PROVAT_ITS ---
06/23/2025 Boris Vance Re : Colonoscopy procedure for Brittnee Villarealr Rajiv This procedure was performed on June. My impressions and recommendations are as follows: Impressions : - Diverticulosis in the recto-sigmoid colon, in the sigmoid colon and in the descending colon. - Redundant colon. - Congested mucosa at the splenic flexure, in the transverse colon, at the hepatic flexure and in the ascending colon. Biopsied. - Stool in the recto-sigmoid colon, in the sigmoid colon, in the descending colon, in the transverse colon, at the hepatic flexure, in the ascending colon and in the cecum. Recommendations : - Discharge patient to home. - Resume previous diet. - Continue present medications. - Await pathology results. - Repeat colonoscopy in 6 months because the bowel preparation was poor. My findings are described in the full procedure note, which is enclosed. If I can be of further assistance, please feel free to contact me at . Sincerely, Basil Velasuqez, 06/23/2025 12:45:35 PM This report has been signed electronically.
--- NOTE | 2025-06-23 14:16 | POSTOPAN2_ITS ---
Anesthesia Postop Eval I Sum Postop Eval Completion status Anesthesia document: Postop Eval 1 completed: No Anesthesia Postop Eval I Summary Anesthesia Postop Eval I Summary: Anesthesia Postop Eval I: Assessment Summary Airway patent Yes 06/23/25 12:36 BELT BACK OPERATOR.MEDM Spontaneous unlabored Yes 06/23/25 12:36 BELT BACK OPERATOR.MEDM respirations Mental status Awake,Calm 06/23/25 12:36 BELT BACK OPERATOR.MEDM nausea Yes 06/23/25 12:36 BELT BACK OPERATOR.MEDM Vomiting Yes 06/23/25 12:36 BELT BACK OPERATOR.MEDM Anesthesia Postop Eval I: Fluid Summary Crystalloid volume administer 900 06/23/25 12:36 BELT BACK OPERATOR.MEDM (ml) Colloids volume administered ( ml) Blood Product volume administered (ml) Total IV fluid infused 900 06/23/25 12:36 BELT BACK OPERATOR.MEDM Anesthesia Postop Eval I: Summary Notes Anesthesia Complication No 06/23/25 12:36 BELT BACK OPERATOR.MEDM Anesthesia Complication Comment: Post-operative progress note Anesthesia: Postop Eval II Evaluation Mental status: Awake and Calm Pain Level: 0 nausea: No Vomiting: No Complications Anesthesia Complication: No
--- NOTE | 2025-06-23 14:16 | PCM.POSTANE2 ---
Anesthesia Postop Eval I Sum Postop Eval Completion status Anesthesia document: Postop Eval 1 completed: No Anesthesia Postop Eval I Summary Anesthesia Postop Eval I Summary: Anesthesia Postop Eval I: Assessment Summary Airway patent Yes 06/23/25 12:36 NURSING HOME ASSISTANT.MEDM Spontaneous unlabored Yes 06/23/25 12:36 NURSING HOME ASSISTANT.MEDM respirations Mental status Awake,Calm 06/23/25 12:36 NURSING HOME ASSISTANT.MEDM nausea Yes 06/23/25 12:36 NURSING HOME ASSISTANT.MEDM Vomiting Yes 06/23/25 12:36 NURSING HOME ASSISTANT.MEDM Anesthesia Postop Eval I: Fluid Summary Crystalloid volume administer 900 06/23/25 12:36 NURSING HOME ASSISTANT.MEDM (ml) Colloids volume administered ( ml) Blood Product volume administered (ml) Total IV fluid infused 900 06/23/25 12:36 NURSING HOME ASSISTANT.MEDM Anesthesia Postop Eval I: Summary Notes Anesthesia Complication No 06/23/25 12:36 NURSING HOME ASSISTANT.MEDM Anesthesia Complication Comment: Post-operative progress note Anesthesia: Postop Eval II Evaluation Mental status: Awake and Calm Pain Level: 0 nausea: No Vomiting: No Complications Anesthesia Complication: No
== END 2025-06-23 13:30 | disposition home or self-care (01) ==
LOC: EN 08:17 → AC 09:01
PROVIDERS: PCP Family Medicine; Referring Provider Family Medicine; Visit Provider Internal Medicine Gastroenterology
PROC: 0DJD8ZZ Inspection of Lower Intestinal Tract, Via Natural or Artificial Opening Endoscopic (ICD-10-PCS; CPT 45378; principal; 2025-06-23 10:55)
DX: K29.51 Unspecified chronic gastritis with bleeding (principal); B37.81 Candidal esophagitis; J44.9 Chronic obstructive pulmonary disease, unspecified; Z79.4 Long term (current) use of insulin; E11.9 Type 2 diabetes mellitus without complications; Z87.891 Personal history of nicotine dependence; Z79.899 Other long term (current) drug therapy; I10 Essential (primary) hypertension; Z79.84 Long term (current) use of oral hypoglycemic drugs; E78.5 Hyperlipidemia, unspecified; Z79.82 Long term (current) use of aspirin; K57.30 Diverticulosis of large intestine without perforation or abscess without bleeding; D12.6 Benign neoplasm of colon, unspecified; K21.9 Gastro-esophageal reflux disease without esophagitis
CPT/HCPCS: 44361; 45380; 82962; 88305; J2405

== ENCOUNTER → 2025-07-19 05:00 | Outpatient (REF) | payer MEDICARE, MEDICAID, SELFPAY ==
[2025-07-19 09:56] LABS: Hematocrit 40.6 % (37-47); Hemoglobin 13.2 g/dL (12.0-15.0); Immature Granulocytes Count 0.110 X10^3/uL (0.0-0.0); Mean Corp Hgb Conc 32.5 g/dL (32-36); Mean Corpuscular Volume 88.6 fL (81-99); Mean Platelet Vol. 11.9 fl (6.2-12.0); NRBC Flagged by Analyzer 0 % (0-5); Platelet Count 181 K/mm3 (150-450); RBC Distribution Width CV 13.4 % (11.6-14.6); RBC Distribution Width SD 43.5 fl (35.1-43.9); Red Blood Count 4.58 M/mm3 (4.2-5.4); White Blood Count 17.9 K/mm3 (4.4-11.0)
== END ==
LOC: OLS.SWAL 05:00
PROVIDERS: PCP Family Medicine
DX: E03.9 Hypothyroidism, unspecified (principal)
CPT/HCPCS: 36415; 85025

== ENCOUNTER → 2025-08-16 | Outpatient (REF) | payer MEDICARE, MEDICAID, SELFPAY ==
--- OUTSIDE RECORDS SUMMARY | 2025-08-16 04:49 | XMS RPT_ITS | CCD ---
Author Organization [facility] Care Team Providers Care Group Practice Pediatrician Name Role Phone KIMBERLY AMAYA Unavailable Unavailable [...] Unavailable Aleksandar Jones MD Primary Care Provider [facility], Kaitlyn Unavailable Haagen [employer] ASSEMBLER, Radha Unavailable Suppan [employer]UR[employer] ASSEMBLER, Shelia A Unavailable Suppan [employer] BE[employer] TURBINE ASSEMBLER, Shelia A Unavailable [phone] Suppan [employer] ASSEMBLER, Shelia A Unavailable [phone] Dr. Aleksandar Jones MD [facility] Provider Dr. Lorraine Springer MD Attending Provider Dr. Lorraine Springer MD Referring Provider Suppan FOUNDER [employer] CEO, Shelia Primary Care Provider Dr. Tae Holland [...] Dr. Lorraine Springer MD Referring Provider Suppan [employer], Shelia Primary Care Provider Dr. Babak Garcia DO Attending Provider Robert SANDERS, Dr. Escalante Family Provider Racheal SANDERS, Dr. Peters Attending Provider Racheal SANDERS, Dr. Peters Referring Provider Shelia Cheung Primary Care Provider [facility] Attending Provid er Unavailable Robert SANDERS, Dr. Escalante Primary Care Provider Racheal SANDERS, Dr. Peters Attending Provider Racheal SANDERS, Dr. Peters Referring Provider Aleksandar Palomares Attending Provider Unavailable James SANDERS, Dr. Koby Cohen Attending Provider James SANDERS, Dr. Koby Cohen Referring Provider Robert SANDERS, Dr. Escalante Referring Provider Joselyn Franklin Attending Provider Robert SANDERS, Dr. Escalante Primary Care Provider Dr. Basil Velasquez DO Attending Provider Dr. Basil Velasquez DO Other Provider RADHA BATISTA Referring Unavailable ROBERT, ALEKSANDAR Jeffrey Primary Care Unavailable ROBERT, ALEKSANDAR Jeffrey Primary Care Unavailable ROBERT, ALEKSANDAR Jeffrey Referring Unavailable ROBERTALEKSANDAR Attending Unavailable ROBERT, ALEKSANDAR Jeffrey Primary Care Unavailable SLEIK, KHALED MELOUD Referring Unavailable ROBERT, ALEKSANDAR Jeffrey Primary Care Unavailable SLEIK, KHALED MELOUD Attending Unavailable SLEIK, KHALED MELOUD Referring Unavailable HARADHA BROWN Attending Unavailable ROBERT, ALEKSANDAR Jeffrey Primary Care Unavailable SHELIA SALMON A Attending Unavailable ROBERT, ALEKSANDAR Jeffrey Primary Care Unavailable ROBERT, ALEKSANDAR Jeffrey Primary Care Unavailable RADHA BATISTA Attending Unavailable ROBERT, ALEKSANDAR Jeffrey Primary Care Unavailable SLEIK, KHALED MELOUD Referring Unavailable RADHA BATISTA Attending Unavailable ROBERT, ALEKSANDAR Jeffrey Attending Unavailable ROBERT, ALEKSANDAR Jeffrey Primary Care Unavailable ROBERT, ALEKSANDAR Jeffrey Primary Care Unavailable ROBERT, ALEKSANDAR Jeffrey Referring Unavailable HARADHA BROWN Referring Unavailable ROBERT, ALEKSANDAR Jeffrey Primary Care Unavailable ROBERT, ALEKSANDAR Jeffrey Primary Care Unavailable ROBERT, ALEKSANDAR Jeffrey Referring Unavailable ROBERT, ALEKSANDAR Jeffrey Primary Care Unavailable ZAIRA MANCILLA Referring Unavailable ROBERT, ALEKSANDAR Jeffrey Primary Care Unavailable ROBERT, ALEKSANDAR Jeffrey Referring Unavailable ROBERT, ALEKSANDAR Jeffrey Primary Care Unavailable ROBERT, ALEKSANDAR Jeffrey Attending Unavailable SELF Referring Unavailable ROBERT, ALEKSANDAR Jeffrey Primary Care Unavailable ROBERT, ALEKSANDAR Jeffrey Primary Care Unavailable FUENTES RENEE Referring Unavailable FUENTES RENEE Attending Unavailable ROBERT, ALEKSANDAR Jeffrey Primary Care Unavailable HAAGEN, RADHA Referring Unavailable ROBERT, ALEKSANDAR Jeffrey Primary Care Unavailable ROBERT, ALEKSANDAR Jeffrey Primary Care Unavailable ROBERT, ALEKSANDAR Jeffrey Referring Unavailable ROBERT, ALEKSANDAR Jeffrey Primary Care Unavailable ROBERT, ALEKSANDAR Jeffrey Referring Unavailable ROBERT, ALEKSANDAR J Attending Unavailable ROBERT, ALEKSANDAR Jeffrey Primary Care Unavailable HAAGEN, RADHA Referring Unavailable ROBERT, ALEKSANDAR Jeffrey Primary Care Unavailable HAAGEN, RADHA Referring Unavailable ROBERT, ALEKSANDAR Jeffrey Primary Care Unavailable ROBERT, ALEKSANDAR Jeffrey Primary Care Unavailable ROBERT, ALEKSANDAR Jeffrey Referring Unavailable RADHA BATISTA Attending Unavailable ROBERT, ALEKSANDAR Jeffrey Primary Care Unavailable HAAGEN, RADHA Attending Unavailable ROBERT, ALEKSANDAR Jeffrey Primary Care Unavailable HAAGEN, RADHA Referring Unavailable ROBERT, ALEKSANDAR Jeffrey Primary Care Unavailable Robert Dr. Aleksandar SANDERS Primary Care Physician Aleksandar Palomares Attending Physician Unavailabl e [facility] Attending Physic Dr. Koby Davison MD, V Attending Physician Joselyn Franklin Attending Physician [phone] Dr. Basil Velasquez DO Attending Physician [phone] Dr. Basil Velasquez DO Nurse Practitioner Saud, Shelia Primary Care Unavailable Hesham Amato Consulting Unavailable Ana Lilia Lebron Attending Unavailable Hesham Amato Admitting Unavailable Suppan, Shelia Primary Care Unavailable Babak Garcia Attending Unavailable Suppan, Shelia Primary Care Unavailable Tae Holland Referring Unavailable Tae Holland Attending Unavailable Lorraine Springer Attending Unavailable Lorraine Springer Referring Unavailable Aleksandar Jones Primary Care Unavailable [facility] Attending Unavailable Aleksandar Jones Primary Care Unavailable Robert Aleksandar MADRID Attending Unavailable Robert, Aleksandar Primary Care Unavailable Caroleen OLS, Aleksandar Attending Unavailable Caroleen, Aleksandar Primary Care Unavailable Suppan, Shelia Primary Care Unavailable Astreika, Vera Attending Unavailable Astreika, Vera Referring Unavailable Suppan, Shelia Primary Care Unavailable Astreika, Vera Attending Unavailable Astreika, Vera Referring Unavailable Suppan, Shelia Primary Care Unavailable Hesham Amato Admitting Unavailable Ana Lilia Lebron Attending Unavailable Hesham Amato Consulting Unavailable Ana Lilia Lebron Consulting Unavailable Joselyn Gross Attending Unavailable Caroleen, Aleksandar Referring Unavailable Robert, Aleksandar Primary Care Unavailable FrancisnasJoselyn dinero Attending Unavailable Caroleen, Aleksandar Primary Care Unavailable Robert, Aleksandar Referring Unavailable Suppan, Shelia Primary Care Unavailable Astreika, Vera Attending Unavailable Astreika, Vera Referring Unavailable Suppan, Shelia Primary Care Unavailable Astreika, Moona Attending Unavailable Astreika, Vera Referring Unavailable SibiliaKoby V Referring Unavailable SibiliaKoby V Attending Unavailable Caroleen, Aleksandar Primary Care Unavailable Robert JULIUS, Aleksandar Attending Unavailable Caroleen, Aleksandar Primary Care Unavailable Caroleen JULIUS, Aleksandar Attending Unavailable Robert, Aleksandar Primary Care Unavailable Caroleen, Aleksandar Primary Care Unavailable [facility] Attending Unavailable Astreika, Moona Attending Unavailable Astreika, Vera Referring Unavailable Robert, Aleksandar Primary Care Unavailable [facility] Attending Unavailable Caroleen, Aleksandar Primary Care Unavailable Basil Velasquez Attending Unavailable Caroleen, Aleksandar Referring Unavailable Caroleen, Aleksandar Primary Care Unavailable Suppan, Shelia Primary Care Unavailable Astreika, Moona Attending Unavailable Astreika, Vera Referring Unavailable FriendBasil Attending Unavailable FriendBasil Consulting Unavailable Caroleen, Aleksandar Referring Unavailable Robert, Aleksandar Primary Care Unavailable de Hesham Rod Attending Unavailable Medications Current Medications Medication Drug Class(es) Dates Sig (Normalized) Sig (Original) acetaminophen 325 mg oral tablet (20 sources) Start: 06-21-2025 take 1 tablet by mouth every four hours as needed for pain Acetaminophen 325 mg tablet Active 325 mg PO Q4H as needed for pain June 21, 2025 12:00am Complies with drug therapy Start: 12-07-2024 End: 01-25-2025 take 2 tablets [...] tuberculin skin test, unspecified formulation Given 12/03/2019 albuterol 0.83 mg/ml inhalation solution (20 sources) beta2-Adrenergic Agonist Start: take 2.5 mg by inhalation four times daily as needed for wheezing Albuterol Sulfate 2.5 mg /3 mL (0.083 %) solution for nebulization Active 2.5 mg INHALATION 4 TIMES DAILY NEEDED as needed for wheezing June 21, 2025 12:00am Complies with drug therapy Start: 06-21-2025 Albuterol Sulf ate 90 mcg/actuation HFA aerosol inhaler Active 2 NMA INHALATION Q4H as needed for shortness of breath or wheezing June 21, 2025 12:00am Complies with drug therapy Start: 08-18-2024 End: 2024 take 2 puff(s) by inhalation every four [...] hours as needed (FOR COUGH OR WHEEZE). aluminum hydroxide 40 mg/ml / magnesium hydroxide 40 mg/ml oral suspension (3 sources) Start : 06-21 take 1 mL by mouth every four hours as needed Aluminum-Magnesium Hydroxide 200-200 mg/5 mL suspension Active 30 mL PO Q4H as needed for dyspepsia June 21, 2025 12:00am Complies with drug therapy aspirin 325 mg delayed release oral tablet (20 sources) Platelet Aggregation Inhibitor, Nonsteroidal Anti-inflammatory Drug Start : 07-22 End: 06-17 take 1 tablet by mouth once daily Aspirin 325 MG tablet,delayed release (DR/EC) Active 325 mg PO DAILY@1600 July 22, 2018 12:00am Res[employer]es Complies with drug therapy Comment on above: Take 1 tablet by rosemary th once daily. Take with food. atorvastatin 10 mg oral tablet (20 sources) HMG-CoA Reductase Inhibitor Start : 06-28 End: 06-28 take 1 tablet by mouth once daily at bedtime for hyperlipidemia atorvastatin (LIPITOR) 10 mg tablet Indications: Pure hypercholesterolemia Take 1 tablet by mouth daily at bedtime. For cholesterol. 30 tablet 06/28/2025 06/28/2026 Active Start: 03-26-2023 End: 06-21-2025 take 1 tablet by mouth once daily Atorvastatin 10 mg t ablet Discontinued 10 mg PO DAILY August 14, 2023 12:00am June 21, 2025 11:22am Cholesterol Start: 05-02-2022 End: 10-04-2022 take 1 [...] take 1 tablet by mouth twice daily Benztropine 0.5 mg tablet Active 0.5 mg PO TWICE A DAY August 15, 2023 12:00am tremors Complies with drug therapy betamethasone 0.5 mg/ml / clotrimazole 10 mg/ml [...] Comment on above: Take 1 capsule by [facility] four times daily for 5 days. cholecalciferol 0.025 mg oral capsule (20 sources) Vitamin D Start: 018 End: take 1 capsule by mouth once daily Cholecalciferol (Vitamin D3) (Vitamin D3) 1,000 UNIT capsule Active 1000 U PO DAILY October 17, 2017 1:00am SUPPLEMENT Complies with drug therapy Comment on above: Take 1 capsule by [facility] once daily. clonazePAM 1 mg oral tablet (20 sources) Benzodiazepine Start: take 1 tablet by mouth at bedtime Clonazepam 1 mg tablet Active 1 mg PO AT BEDTIME June 21, 2025 12:00am Complies with drug therapy Start: 06-05-2022 take 1 tablet by [facility] twice daily Clonazepam 0.5 mg Tablet Active 0.5 mg PO TWICE A DAY June 05, 2022 12:00am schizophrenia Complies with drug therapy Start: 06-05-2022 take 2 tablets by [facility] twice daily Clonazepam 0.5 mg Tablet Active [...] Anxiety disorder, unspecified Start: 10-17-2017 End: 07-22-2018 Clonazepam 0.5 MG [...] 15, 2019 11:07am July 30, 2021 6:16pm End: 06-28-2025 cloZAPine (CLOZARIL) 100 mg tablet Take by mouth. Takes 25mg in the morning and 500mg at bedtime 06/28/2025 Discontinued (Adjust Sig - Block E-Cancel) take 3 tablets by mo uth at [...] Serotonin and Norepinephrine Reuptake Inhibitor Start: End: take 50 mg by mouth once daily Desvenlafaxine Succinate Active 50 MG PO DAILY July 30, 2021 12:00am Comment on above: Take 50 mg by mouth once daily. docusate sodium 100 mg oral capsule (20 sources) Start: End: take 1 capsule by mouth twice daily Docusate Sodium 100 mg capsule Active 100 mg PO TWICE A DAY November 09, 2024 1:00am Complies with drug therapy Comment on above: Take 1 capsule by [facility] two times a day. empagliflozin 10 mg oral tablet (20 sources) Sodium-Glucose Cotransporter 2 Inhibitor Start: End: take 1 tablet by mouth once daily Empagliflozin (Jardiance) 10 mg Tablet Active 10 mg PO DAILY July 30, 2021 12:00am diabetes Complies with drug therapy Start: 03-26-2021 End: 07-24-2021 take 1 tablet [...] Active Start: 06-05-2022 take 1 tablet by mouth twice d aily Ferrous Sulfate (Feosol) 325 mg (65 mg iron) Tablet Active 325 mg PO TWICE A DAY June 05, 2022 12:00am anemia Complies with drug therapy Start: 05-08-2022 take 1 tablet by rosemary th twice daily at mealtime ferrous sulfate 325 mg (65 mg iron) tablet Take 1 tablet by mouth twice daily with meals. 120 tablet 5 05/08/2022 Active Comment on above: Take 1 tablet by rosemary th twice daily with meals. 30 actuat fluticasone furoate 0.1 mg/actuat / umeclidinium 0.0625 mg/actuat / vilanterol 0.025 mg/actuat dry powder inhaler (1 source) Anticholinergic, Corticosteroid, beta2-Adrenergic Agonist Start: take 1 puff(s) by inhalation once daily TRELEGY ELLIPTA 100-62.5-25 mcg inhalation powder Inhale 1 puff as instructed once daily. 06/22/2025 Active 30 actuat fluticasone furoate 0.1 mg/actuat / vilanterol 0.025 mg/actuat dry powder inhaler (20 sources) Corticosteroid, beta2-Adrenergic Agonist Start: Fluticasone Furoate-Vilanterol (Breo Ellipta) 100-25 mcg/dose blister with device Active 1 NMA INHALATION DAILY November 09, 2024 1:00am Complies with drug therapy Start: 07-30-2021 Fluticasone Fu roate-Vilanterol (Breo Ellipta) 100-25 mcg/dose blister with device Active 1 INH INHALATION DAILY July 30, 2021 12:00am Start: 06-25-2019 End: 04-04-2025 take 1 dose by inhalation once fluticasone-vilanterol (BREO ELLIPTA) 100-25 mcg/dose inhaler Indications: Chronic obstructive pulmonary disease, unspecified COPD type (HCC) Inhale 1 Inhalation as instructed once daily. Per Dr. Ramirez 06/25/2019 04/04/2025 Discontinued (Course of therapy completed) Comment on above: Inhale 1 Inhalation as instructed once daily. Per Dr. Ramirez furosemide 20 mg oral tablet (20 sources) Loop Diuretic Start: 01-05-2020 End: 08-06-2024 take 1 tablet by mouth once daily Furosemide 20 mg tablet Active 20 mg PO DAILY July 30, 2021 12:00am FLUID Complies with drug therapy Start: 11-15-2019 End: 11-16-2019 take 1 tablet [...] 1 tablet by rosemary th once daily. gabapentin 100 mg oral capsule (20 sources) Anti-epileptic Agent Start: 11-09-2024 End: 03-20-2025 take 2 capsules by mouth three times daily Gabapentin 100 mg capsule Active 200 mg PO THREE TIMES A DAY November 09, 2024 1:00am Complies with drug therapy Start: 09-08-2024 End: 12-02-2024 Gabapentin 100 mg [...] Comment on above: Take 1 tablet by [facility] twice daily. 12 hr guaiFENesin 600 mg extended release oral tablet (20 sources) Start: 11-09-2024 take 2 tablets by mouth once daily, then take 1 tablet by mouth every twelve hours Guaifenesin (Mucus Relief Er) 600 mg tablet extended release 12hr Active 1200 mg PO DAILY November 09, 2024 1:00am Complies with drug therapy Start: 11-09-2024 take 1 mg by mouth [...] 12:00am November 12, 2024 11:34am Start: 08-14-2023 End: 06-21-2025 take 1 tablet by mouth once daily, then take 1 tablet by mouth every twelve hours Guaifenesin (Mucus Relief Er) 1,200 mg tablet extended release 12hr Discontinued 1200 mg PO DAILY August 14, 2023 12:00am June 21, 2025 11:26am congestion Start: 10-18-2020 End: 11-09-2024 take 2 tablets by mouth twice daily guaiFENesin (MUCINEX) 600 mg 12 hr tablet Take 2 tablets by mouth two times a day. 40 tablet 11/09/2024 Active Comment on above: Take 2 tablets by mo [facility] twice daily. Take 2 tablets by mo [facility] two times a day. haloperidol 2 mg oral tablet (20 sources) Typical Antipsychotic Start: 08-14-20 End: 06-28-20 take 1 tablet by mouth at bedtime Haloperidol 2 mg tablet Active 2 mg PO AT BEDTIME August 14, 2023 12:00am anxiety Complies with drug therapy hypromellose 0.003 mg/mg ophthalmic gel (20 sources) Start: 11-05-19 apply 1 drop(s) into the eye(s) once [...] 100 unit/mL (3 mL) insulin pen Active 60 U SC AT BEDTIME July 30, 2021 12:00am DM Complies with drug therapy Start: 07-30-2021 Insulin Glargi ne (Lantus Solostar U-100 Insulin) 100 unit/mL (3 mL) insulin pen Active 48 U SC DAILY@1599July 30, 2021 12:00am DM Start: 07-30-2021 Insulin [...] aily at 4 PM or as directed insulin lispro 100 unt/ml injectable solution (20 sources) Insulin Analog Start: 06-21-2025 Insulin Lispro (Humalog U-100 Insulin) 100 unit/mL solution Active 1 sliding scale dose SC .CM June 21, 2025 12:00am Complies with drug therapy Start: 03-19-2024 End: 03-19-2024 insulin lispro (HUMALOG KWIK PEN) 100 unit/mL Indications: Uncontrolled type 2 diabetes [...] 64u Lancing Device misc (1 source) Start: 08-20-2024 End: 08-21-2024 Lancing Device misc Use with blood glucose test four times a day. Insulin Dep? Yes 120 Each 5 08/20/2024 08/21/2024 Active menthol 5.8 mg oral lozenge (20 sources) Start: 08-16-2024 Menthol (COUGH DROPS) 5.8 mg Use 1 Lozenge as instructed every 2 hours as needed. Sugar-Free 80 Lozenge 1 08/16/2024 Active 24 hr metFORMIN hydrochloride 500 mg extended release oral tablet (20 sources) Biguanide Start: 08-14-2023 End: 01-25-2025 Metformin 500 mg tablet extended release 24 hr Active 1000 mg PO TWICE A DAY August 14, 2023 12:00am Diabetes Complies with drug therapy Start: 03-26-2023 End: 02-24-2024 take 2 tablets [...] AT BEDTIME July 30, 2021 12:00am HTN Complies with drug therapy Start: 05-21-2021 End: 09-12-2021 take 1 tablet [...] take 1 tablet by mouth twice daily Nabumetone 500 mg tablet Active 500 mg PO TWICE A DAY July 12, 2025 12:00am Complies with drug therapy Start: 11-09-2024 take 1 tablet by rosemary th twice daily at mealtime nabumetone (RELAFEN) 500 [...] capsule by mouth once daily. 30 capsule 09/11/2022 Active Start: 09-11-2022 End: 10-11-2022 take 1 capsule by mouth once daily omega-3 fatty acids (FISH OIL CONCENTRATE) 1,000 mg cap Indications: Hyperlipidemia, unspecified hyperlipidemia type Take 1 capsule by mouth once daily. 30 capsule 09/11/2022 10/11/2022 Active Start: 10-09-2021 End: 09-11-2022 take 1 capsule by mouth once daily omega-3 fatty acids (FISH OIL CONCENTRATE) 1,000 mg cap Indications: Hyperlipidemia, unspecified hyperlipidemia type Take 1 capsule by mouth once daily. 30 capsule 10/09/2021 09/11/2022 Discontinued Start: 10-09-2021 take 1 capsule by mo uth once daily omega-3 fatty acids (FISH OIL CONCENTRATE) 1,000 mg cap Indications: Hyperlipidemia, unspecified hyperlipidemia type Take 1 capsule by mouth once daily. 30 capsule 10/09/2021 Active Start: 11-14-2020 End: 10-09-2021 take 1 capsule by mouth once daily omega-3 fatty acids (FISH OIL CONCENTRATE) 1,000 mg cap Indications: Hyperlipidemia, unspecified hyperlipidemia type Take 1 capsule by mouth once daily. 30 capsule 11/14/2020 10/09/2021 Discontinued Start: 07-27-2018 End: 11-14-2020 take 1 capsule by mouth once daily omega-3 fatty acids (FISH OIL CONCENTRATE) 1,000 mg cap Indications: Hyperlipidemia, unspecified hyperlipidemia type Take 1 capsule by mouth once daily. 07/27/2018 11/14/2020 Discontinued Comment on above: Take 1 capsule by mo uth once daily. Alliance-3 Fatty Acids-Fish Oil (Fish Oil) 1 EACH capsule (6 sources) Start: 10-17-2017 Alliance-3 Fatty Acids-Fish Oil (Fish Oil) 1 EACH capsule Active 1 EACH PO DAILY October 17, 2017 3:27pm Start: 10-17-2017 Alliance-3 Fatty Acids-Fish Oil (Fish Oil) 1 EACH capsule Active 1 EACH PO DAILY October 17, 2017 1:00am Alliance-3 Fatty Acids-Fish Oil 300-1,000 mg capsule (8 sources) Start: 11-09-2024 Alliance-3 Fatty Acids-Fish Oil 300-1,000 mg capsule Active 1 NMA PO AT BEDTIME November 09, 2024 1:00am Complies with drug therapy Start: 11-09-2024 Alliance-3 Fatty Acids-Fish Oil 300-1,000 mg capsule Active 1 NMA PO AT BEDTIME November 09, 2024 1:00am Start: 11-09-2024 Alliance-3 Fatty Acids-Fish Oil 300-1,000 mg capsule Active NMA November 09, 2024 1:00am omeprazole 20 mg delayed release oral capsule (20 sources) Proton Pump Inhibitor Start: 06-21-2025 take 1 capsule by mouth twice daily Omeprazole 20 mg capsule,delayed release(DR/EC) Active 20 mg PO TWICE A DAY June 21, 2025 12:00am Complies with drug therapy Start: 05-27-2025 End: 06-21-2025 take 1 capsule by mouth once daily Omeprazole 40 mg capsule,delayed release(DR/EC) Discontinued 40 mg PO daily May 27, 2025 12:00am June 21, 2025 11:28am Start: 05-10-2025 End: 05-27-2025 take 1 capsule by mouth twice daily Omeprazole 20 mg capsule,delayed release(DR/EC) Discontinued 20 mg PO TWICE A DAY May 10, 2025 1:00pm May 27, 2025 10:39am indigestion Start: 10-31-2019 End: 06-28-2025 take 1 capsule by mouth once daily Omeprazole 20 MG capsule,delayed release(DR/EC) Discontinued 20 mg PO DAILY October 31, 2019 1:00am May 10, 2025 1:01pm indigestion Comment on above: Take 1 capsule by mo uth daily before breakfast. 1/2 hr before meal. 1.5 ml paliperidone palmitate 156 mg/ml prefilled syringe (20 sources) Atypical Antipsychotic Start: 11-09-2024 Paliperidone Palmitate (Invega Sustenna) 234 mg/1.5 mL syringe Active 234 mg IM AT BEDTIME November 09, 2024 1:00am Complies with drug therapy Start: 11-09-2024 Paliperidone P almitate (Invega Sustenna) 234 mg/1.5 mL syringe Active mg IM November 09, 2024 1:00am Start: 07-01-2022 INVEGA SUSTENN A 156 mg/mL syrg injection 07/01/2022 Active polyethylene glycol 3350 91785 mg powder for oral solution (20 sources) [...] Start: 09-26-2021 End: 04-29-2023 polyethylene glycol 3350 (MO RALAX) 17 gram/dose powder Indications: Chronic constipation Take 17 .5 tsps as needed for constipation. 235 g 6 01/11/2022 04/29/2023 Discontinued (Duplicate Entry) Start: 08-24-2021 End: 02-20-2022 polyethylene glycol 3350 (MO RALAX, GLYCOLAX) 17 gram packet Take 1 [...] as needed for constipation. polyethylene glycol 3350 817743 mg / potassium chloride 2970 mg / sodium bicarbonate 6740 mg / sodium chloride 5860 mg / sodium sulfate 99136 mg powder for oral solution (11 sources) Osmotic Laxative Start: 12-13-2023 Peg 3350-Electrolytes (Golytely) 236-22.74-6.74 -5.86 gram recon soln Active 240 mL PO EVERY 10 MINUTES NEEDED 4000 0 December 13, 2023 1:00am until fecal effluent is clear Complies with drug therapy Start: 12-13-2023 Peg 3350-Elect rolytes (Jacquieytely) 236-22.74-6.74 -5.86 gram recon soln Active 240 ML PO EVERY 10 MINUTES NEEDED 4000 December 13, 2023 1:00am until fecal effluent is clear polymyxin b 87200 unt/ml / trimethoprim 1 mg/ml ophthalmic solution [...] eye every 4 hours for 7 days. pramipexole dihydrochloride 0.5 mg oral tablet (20 sources) Nonergot Dopamine Agonist Start: 06-05-2022 Pramipexole Active 0.25 MG PO AT BEDTIME June 05, 2022 12:00am Take half table PO at bedtime Start: 06-29-2021 End: 04-16-2024 take 0.5 tablet by mouth at bedtime Pramipexole 0.5 mg Tablet Active 0.5 mg PO AT BEDTIME June 05, 2022 12:00am restless legs Take half table PO at bedtime Complies with drug therapy Start: 09-12-2020 End: 02-28-2021 take 1 tablet [...] weeks due to leg aches and cramps Psyllium (Metamucil) Packet (20 sources) Start: 07-30-2021 Psyllium (Metamucil) Packet Active 1 PACKET PO AT BEDTIME July 30, 2021 6:01pm Start: 07-30-2021 Psyllium ([place] mucil) Packet Active 1 PACKET PO AT BEDTIME July 29, 2021 11:00pm Start: 07-30-2021 Psyllium ([place] mucil) Packet Active 1 PACKET PO AT [...] chewable tablet (20 sources) Start: 3 End: 4 take 1 tablet by mouth every six hours as needed simethicone, chewable (GAS RELIEF, SIMETHICONE,) 80 mg chewable tablet Take 1 tablet by mouth every 6 hours as needed. 100 tablet 11 11/22/2022 11/22/2023 Active Comment on above: Take 1 tablet by rosemary th every 6 hours as needed. sodium chloride-aloe vera (AYR SALINE GEL) nasal spray (20 sources) Start: sodium chloride-aloe vera (AYR SALINE GEL) nasal [...] in the nose two times a day. sucralfate 1000 mg oral tablet (4 sources) Aluminum Complex Start: 06-23-20 End: 07-23-20 take 1 tablet by mouth twice daily Sucralfate (Carafate) 1 gram tablet Active 1 g PO TWICE A DAY 60 June 23, 2025 12:00am Complies with drug therapy terbinafine hydrochloride 10 mg/ml topical cream (2 sources) Allylamine Antifungal Start: 08-24-20 End: 09-07-20 terbinafine HCl (LAMISIL) 1 % cream Indications: Tinea cruris Apply to affected area two times a day for 14 days. To groin 28.4 g 1 08/24/2024 09/07/2024 Active traZODone hydrochloride 50 mg oral tablet (6 sources) Serotonin Reuptake Inhibitor Start: 07-30-20 take 50 mg by mouth at bedtime Trazodone Active 50 MG PO AT BEDTIME July 30, 2021 12:00am triamcinolone acetonide 0.001 mg/mg topical ointment (2 sources) Corticosteroid Start: 03-27-20 End: 04-10-20 triamcinolone acetonide (KENALOG) 0.1 % ointment Apply [...] guaze under the cpap strap until healed. ursodiol 250 mg oral tablet (4 sources) Bile Acid Start: 06-23-20 take 1 tablet by mouth twice daily Ursodiol 250 mg tablet Active 250 mg PO TWICE A DAY 60 1 June 23, 2025 12:00am Complies with drug therapy Completed/Discontinued Medications Medication Drug Class(es) Dates Sig [...] HOURS NEEDED as needed for COUGH 20 July 25, 2018 12:00am August 11, 2018 [...] on above: Take 1 capsule by mo [facility] once daily. COMPOUNDED PRESCRIPTION (20 sources) Start: 07-27-2018 End: 08-24-2024 COMPOUNDED PRESCRIPTION Indications: LIDA (obstructive sleep apnea) BIPAP of 09/19 on 3L oxygen per Dr. Ramirez 07/27/2018 [...] 12/8 on [address] per Dr[address] Ramirez doxycycline hyclate 100 mg oral tablet (20 sources) Tetracycline-clas s Drug Start: 11-12-2024 End: 06-21-2025 take 5 tablets by mouth once daily Doxycycline Hyclate 100 mg tablet Discontinued 100 mg PO TWICE A DAY 14 7 0 November 12, 2024 11:36am June 21, 2025 11:24am Continue doxycycline for a total of 5 more days Start: 11-12-2024 End: 06-21-2025 Doxycycline Monohydrate 100 mg tablet Discontinued 100 mg PO TWICE A DAY 11 0 November 12, 2024 1:00am June 21, 2025 11:24am 1 twice a day for 11 doses [...] 2019 1:47pm November 23, 2019 8:33pm antibiotic ferrous gluconate 324 mg oral tablet (20 [...] Comment on above: Take 1 capsule by [facility] twice daily with meals. magnesium hydroxide [...] 1 Applicator vag inally daily at bedtime. nystatin 615152 unt/ml oral suspension (3 sources) Polyene Antifungal Start: 5 End: 5 take 1 mL by mouth once Nystatin 100,000 unit/mL suspension Discontinued 1 mL PO ONCE 14 14 0 June 23, 2025 12:00am July 06, 2025 12:00am July 07, 2025 12:11am swish and swallow Sfypz-6-HCF-EPA-Fish Oil (FISH OIL) 300-1,000 mg cap (20 sources) End: 4 Ygmit-2-ORU-EPA-Fish Oil (FISH OIL) 300-1,000 mg cap Take by mouth. 0 03/02/2024 Discontinued (Duplicate Entry) Pomlu-1-OQO-EPA- Fish Oil (FISH OIL) 300-1,000 mg cap Take by mouth. 0 Active Comment on above: Take by mouth. ondansetron 4 mg disintegrating oral tablet (20 sources) Serotonin-3 Receptor Antagonist Start: 12-22-19 End: 06-21-20 take 1 tablet by mouth every six hours as needed for nausea and vomiting Ondansetron 4 mg tablet,disintegratin g Discontinued 4 mg PO EVERY 6 HOURS as needed for nausea and vomiting 20 December 21, 2024 12:00am June 21, 2025 11:59am Start: 12-13-2023 End: 06-21-2025 take 1 tablet by mouth every eight hours as needed for nausea Ondansetron 4 mg tablet,disintegrating Discontinued 4 mg PO EVERY 8 HOURS NEEDED as needed for Nausea 10 October 14, 2024 1:00am June 21, 2025 11:59am oseltamivir 75 mg oral capsule (20 sources) Neuraminidase Inhibitor Start: 11-15-2019 End: 11-23-2019 take 1 capsule by mouth twice daily Oseltamivir 75 MG capsule Discontinued 75 mg PO TWICE A DAY November 16, 2019 1:47pm November 23, 2019 8:33pm flu perflutren lipid microspheres 1.3 mL in NaCl (PF) 0.9% 10 mL injection (DEFINITY) (2 sources) Start: 07-31-2020 End: 10-30-2021 perflutren lipid microspheres 1.3 mL in NaCl (PF) 0.9% 10 mL injection (DEFINITY) microencapsulated potassium chloride 20 meq extended release oral tablet (20 sources) Start: 10-16-2017 End: 12-30-2024 take 1 tablet by mouth once daily Potassium Chloride 20 MEQ tablet Discontinued 20 meq PO DAILY 14 0 November 15, 2019 11:07am November 16, 2019 1:48pm Congestive heart failure Heart failure, unspecified Comment on above: Take 1 tablet by rosemary th once daily. predniSONE 50 mg oral tablet (20 sources) Start: 12-21-2024 End: 06-21-2025 take 1 tablet by mouth once daily Prednisone 50 mg tablet Discontinued 50 mg PO DAILY 4 4 0 December 21, 2024 12:00am June 21, 2025 11:31am Start: 11-12-2024 End: 06-21-2025 Prednisone 20 mg tablet Disc ontinued 40 mg PO DAILY 14 0 November 12, 2024 1:00am June 21, 2025 11:31am 2 tablets once a day for 7 days then discontinue Start: 08-16-2023 End: 06-21-2025 Prednisone 20 mg tablet Disc ontinued 20 mg PO TWICE A DAY 14 November 12, 2024 11:36am June 21, 2025 11:31am Continue this prescription until it runs out then discontinue Start: 10-18-2020 End: 10-23-2020 take 2 tablets by mouth once daily predniSONE (DELTASONE) 20 mg tablet Take 2 tablets by mouth once daily for 5 days. 10 tablet 10/18/2020 10/23/2020 Start: 11-02-2019 End: 11-09-2019 Prednisone 10 MG tablet Disc ontinued 0 mg PO DAILY Taper: Frequency: DAILY@0800 Days: 3 Hours: 0 Dose: 40 Frequency: DAILY@0800 Days: 3 Hours: 0 Dose: 30 Frequency: DAILY@0800 Days: 3 Hours: 0 Dose: 20 Frequency: DAILY@0800 Days: 3 Hours: 0 Dose: 10 November 02, 2019 1:00am November 09, 2019 [...] 11, 2014 1:00am September 15, 2014 12:31pm psyllium 3400 mg powder for oral suspension (1 source) Start: 05-07-2021 End: 11-03-2021 take 1 dose by mouth once daily psyllium husk, with sugar, (METAMUCIL, WITH SUGAR,) 3.4 gram packet Take 1 Packet by mouth once daily. In 8 oz of liquid 30 Packet 5 05/07/2021 11/03/2021 regadenoson (LEXISCAN) 0.4 mg/5 mL syrg (1 source) Start: 04-29-2023 End: 04-29-2023 regadenoson (LEXISCAN) 0.4 mg/5 mL syrg Indications: [...] 9 mg/ml prefilled syringe (2 sources) Start: 07-31-2020 End: 10-30-2021 sodium chloride 0.9 % (flush) 10 mL (BD POSIFLUSH) Umeclidinium (20 sources) Anticholinergic Start: 11-09-2024 End: 06-21-2025 take 62.5 ug by inhalation once daily Umeclidinium (Incruse Ellipta) 62.5 mcg/actuation blister with device Discontinued INHALATION DAILY November 09, 2024 1:00am June 21, 2025 11:59am Start: 11-09-2024 take 62.5 ug by inha lation once [...] DAILY July 30, 2021 12:00am Start: 10-21-2019 End: 06-28-2025 take 1 puff(s) by inhalation once daily, then take 1 puff(s) by inhalation once daily umeclidinium (INCRUSE ELLIPTA) 62.5 mcg/actuation inhaler Inhale 1 Puff as instructed once daily. Inhale one puff once daily. DO NOT CLICK OPEN UNTIL READY FOR DOSE 1 Each 10/21/2019 06/28/2025 Discontinued (Changing Therapy/Dosage Form) Comment on above: Inhale 1 Puff as ins tructed once daily. Inhale one puff once daily. DO NOT CLICK OPEN UNTIL READY FOR DOSE wheat dextrin 3000 mg powder for oral solution (20 sources) Start: 10-31-2019 End: 11-23-2019 Wheat Dextrin 1 EACH powder in packet [...] Date Documented Da te Episodic/Chronic Abdominal pain (20 sources) Epigastric pain; Translations: [Epigastric pain] Onset: 5 Episodic Administrative/social admission (20 sources) Patient encounter status; Translations: [Other specified counseling] Onset: 2 Episodic Anxiety disorders (20 sources) Anxiety; Translations: [...] complication] Onset: 4 Resolved: 8 09-13-2015 Chronic Diabetes mellitus without complication (20 sources) Diabetes mellitus; Translations: [Type 2 diabetes mellitus without complications] Onset: 01-27-200 9 Resolved: 4 11-16-2019 Chronic Diseases of white blood cells (14 sources) Leukocytosis; Translations: [Elevated white blood cell [...] Hypokalemia; Translations: [Hypokalemia] Onset: 4 09-22-2014 Episodic Genitourinary symptoms and ill-defined conditions (4 sources) Nocturnal enuresis; Translations: [Nocturnal enuresis] Onset: 5 06-03-2025 Chronic Impulse control disorders, NEC (20 sources) Homicidal [...] Fecal impaction; Translations: [Fecal impaction] 11-16-2019 Episodic Malaise and fatigue (20 sources) Asthenia; Translations: [Other malaise] Onset: 4 11-16-2019 Episodic Menopausal disorders (20 sources) Postmenopausal bleeding; Translations: [Postmenopausal bleeding] Onset: 7 09-26-2017 Chronic Mood disorders (20 sources) Depressive disorder; Translations: [Depression] 04-09-2022 Chronic Mycoses (1 source) Tinea cruris; Translations: [Tinea cruris] 08-24-2024 Episodic Nausea and vomiting (20 sources) Nausea and vomiting; Translations: [Nausea with vomiting, unspecified] Onset: 5 10-22-2024 Episodic Nonspecific chest pain (1 source) Chest pain; Translations: [Chest pain, unspecified] 04-29-2023 Episodic Nutritional deficiencies (20 sources) Vitamin D deficiency; Translations: [Vitamin D deficiency, unspecified] Onset: 9 05-03-2011 Chronic Other aftercare (1 source) Encounter for therapeutic drug level monitoring; Translations: [Medication monitoring encounter] Onset: 5 Episodic Other aftercare (2 sources) Other detention (current) drug therapy; Translations: [Other intermediate accountant (current) drug therapy] Onset: 5 Episodic Other circulatory disease (1 source) H/O: heart failure; Translations: [Personal history of other diseases of the circulatory system] 03-29-2025 Episodic Other connective tissue disease (13 sources) Pain in bilateral legs; Translations: [Pain in right leg] 12-02-2023 Episodic Other diseases of veins and lymphatics (1 source) Vascular insufficiency; Translations: [Venous insufficiency (chronic) (peripheral)] 06-28-2025 Episodic Other diseases of veins and lymphatics (1 source) Venous insufficiency (chronic) (peripheral); Translations: [Venous insufficiency] Onset: Episodic Other eye disorders (1 source) Pain [...] constipation; Translations: [Constipation, unspecified] 01-13-2024 Episodic Other gastrointestinal disorders (1 source) Dysphagia, unspecified; Translations: [Dysphagia, unspecified] Onset: 5 Episodic Other gastrointestinal disorders (1 source) Diarrhea, unspecified; Translations: [Diarrhea, unspecified] Onset: 5 Episodic Other hematologic conditions (1 source) Protein [...] cough] 11-09-2024 Episodic Other lower respiratory disease (10 sources) Respiratory insufficiency; Translations: [Other abnormalities of [...] Chronic Other nutritional; endocrine; and metabolic disorders (10 sources) Body mass index 30+ - obesity; Translations: [Obesity, unspecified] 11-20-2024 Chronic Other nutritional; endocrine; and metabolic disorders (1 source) Obesity, unspecified; Translations: [Obesity, unspecified] Onset: 5 Chronic Other nutritional; endocrine; and metabolic disorders [...] Translations: [Altered mental status, unspecified] 07-19-2021 Episodic Residual codes; unclassified (1 source) Edema, unspecified; Translations: [Edema, unspecified type] Onset: 5 Episodic Respiratory failure; insufficiency; arrest (adult) (20 sources) Acute respiratory failure; Translations: [Acute respiratory failure with hypoxia] Onset: 3 Resolved: 5 11-16-2019 Episodic Schizophrenia and other psychotic disorders (20 [...] (1 source) Backache; Translations: [Dorsalgia, unspecified] Episodic Substance-related disorders (20 sources) Benzodiazepine dependence; Translations: [Sedative, hypnotic or anxiolytic dependence, uncomplicated] Onset: 4 Resolved: 5 11-16-2019 Chronic Suicide and intentional self-inflicted injury (20 sources) Suicidal thoughts; Translations: [Suicidal ideations] 04-18-2022 Episodic Unclassified (1 source) Unknown / UNK(Unknown) Onset: 8 Unclassified (1 source) Obesity, Class II, BMI 35-39.9; Translations: [Obesity, Class II, BMI 35-39.9] Onset: 8 Unclassified (1 source) Cough, unspecified type; Translations: [Cough, unspecified type] Onset: 5 Unclassified (1 source) Acute cough; Translations: [Acute cough] Onset: 5 Urinary tract infections (1 source) Urinary tract infection, site not specified; Translations: [Urinary tract infection, site not specified] Onset: 5 Episodic Viral infection (10 sources) Disease caused by 2019-nCoV; Translations: [COVID-19] Episodic Past or Other Problems Problem Classification Problem Date Documented Date Episodic/Chronic Cardiac dysrhythmias (20 sources) Palpitations; Translations: [Tachycardia] Onset: 11-27-2017 08-28-2020 Episodic Diabetes mellitus without complication (20 sources) Abnormal glucose level; Translations: [Other abnormal glucose] Resolved: 04-29-2018 10-08-2021 Episodic Gastritis and duodenitis (20 sources) Gastritis; Translations: [Gastritis, unspecified, without bleeding] Onset: 08-07-2009 08-07-2009 Episodic Immunizations and screening for infectious disease (9 sources) Exposure to Hepatitis B virus; Translations: [Contact with and (suspected) exposure to viral hepatitis] Onset: 07-06-2024 12-30-2024 Episodic Other aftercare (1 source) 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; Translations: [Type 2 diabetes mellitus with diabetic nephropathy, with long-term current use of insulin (HCC)] Onset: 09-13-2015 Episodic Other circulatory disease (20 sources) History of clinical finding in subject; Translations: [Personal history of other diseases of the circulatory system] Onset: 05-21-2021 Resolved: 01-14-2022 05-21-2021 Episodic Other circulatory disease (1 source) Personal history of other diseases of the circulatory system; Translations: [History of CHF (congestive heart failure)] Onset: 03-29-2025 Episodic Other connective tissue disease (20 sources) Other symptoms and signs involving the musculoskeletal system; Translations: [Other musculoskeletal symptoms referable to limbs] Onset: 03-02-2024 01-13-2024 Episodic Other connective tissue disease (1 source) Pain in right leg; Translations: [Leg pain, bilateral] Onset: 09-08-2024 Episodic Other connective tissue disease (1 source) Pain in left leg; Translations: [Leg pain, bilateral] Onset: 09-08-2024 Episodic Other injuries and conditions due to external causes (20 sources) H/O: injury; Translations: [Personal history of other (healed) physical injury and trauma] Onset: 08-12-2018 Resolved: 01-14-2022 08-12-2018 Episodic Other liver diseases (1 source) Abnormal levels of other serum enzymes; Translations: [Elevated liver enzymes] Onset: 01-12-2025 Episodic Other lower respiratory disease (1 source) [...] use] Onset: 09-07-2012 Resolved: 11-07-2016 11-07-2016 Episodic Results Test Name Value Interpretation Reference Range Facility Basic metabolic 2000 panelon 06-28-2025 Anion gap [Moles/Vol] 17 mmol/L High 8-15 [facility] Comment on above: Order Comment: Speci men Type: BLOOD SPECIMENOrdering Facility: [facility] Address: [address] [place] [address] Performed By: #### 2 4321-2, 64128-9, 3016-3, 21137-9 ####[facility] LABCLIA [id number] [address] [address] [place] Calcium [Mass/Vol] 9.6 mg/dL Normal 8.5-10.2 [facility] Comment on above: Order Comment: Speci men Type: BLOOD SPECIMENOrdering Facility: [facility] Address: [address] [place] [address] Performed By: #### 2 4321-2, 52419-8, 3016-3, 07837-1 ####[facility] LABCLIA [id number] [place] [id number] [place] Chloride [Moles/Vol] 92 mmol/L Low 98-107 [facility] Comment on above: Order Comment: Speci men Type: BLOOD SPECIMENOrdering Facility: [facility] Address: [address] [place] [address] Performed By: #### 2 4321-2, 75849-0, 3016-3, 55821-8 ####[facility] LABCLIA [id number] [address] [address] [place] CO2 [Moles/Vol] 21 mmol/L Low 22-30 [facility] Comment on above: Order Comment: Speci men Type: BLOOD SPECIMENOrdering Facility: [facility] Address: [address] [place] [address] Performed By: #### 2 4321-2, 41499-5, 3016-3, 43581-9 ####[facility] LABCLIA [id number] [address] [address] [place] Creatinine [Mass/Vol] 0.40 mg/dL Low 0.58-0.96 [facility] Comment on above: Order Comment: Speci men Type: BLOOD SPECIMENOrdering Facility: [facility] Address: [address] [place] [address] Performed By: #### 2 4321-2, 59706-1, 3016-3, 65122-0 ####[facility] LABIA [id number] [address] [address] [place] eGFRcr SerPlBld CKD-EPI 2020 113 mL/min/1.73m??? Normal >=60 [facility] Comment on above: Order Comment: Specjose alfredo men Type: BLOOD SPECIMENOrdering Facility: [facility] Address: [address] [place] [address] Result Comment: Gia mated Glomerular Filtration Rate [...] reflect actual GFR. Performed By: #### 2 4321-2, 16552-5, 3016-3, 73885-6 ####[facility] LABIA [id number] [address] [address] [place] Glucose [Mass/Vol] 95 mg/dL Normal 74-99 [facility] Comment on above: Order Comment: Speci men Type: BLOOD SPECIMENOrdering Facility: [facility] Address: [address] [place] [address] Result Comment: The [place] Diabetes Association (ADA) provides guidance for cutoff [...] Standards of Medical Care in Diabetes 2016, [place] [employer]. Diabetes Care. 2016.39(Suppl 1). Performed By: #### 2 4321-2, 63350-0, 6-3, 47327-7 ####[facility] LABCLIA [id number] [place] [id number] [place] Potassium [Moles/Vol] 4.5 mmol/L Normal 3.7-5.1 [facility] Comment on above: Order Comment: Speci men Type: BLOOD SPECIMENOrdering Facility: [facility] Address: [address] [place] [address] Performed By: #### 2 4321-2, , 3015-3, 77104-0 ####[facility] LABCLIA [id number] [place] [address] [place] Sodium [Moles/Vol] 130 mmol/L Low 136-144 [facility] Comment on above: Order Comment: Speci men Type: BLOOD SPECIMENOrdering Facility: [facility] Address: [address] [place] [address] Performed By: #### 2 4321-2, , 3015-3, 53687-8 ####[facility] LABCLIA [id number] [place] [id number] [place] Urea nitrogen [Mass/Vol] 9 mg/dL Normal 7-21 [facility] Comment on above: Order Comment: Speci men Type: BLOOD SPECIMENOrdering Facility: [facility] Address: [address] [place] [address] Performed By: #### 2 4321-2, 84972-7, 6-3, 74629-0 ####[facility] LABCLIA [id number] [place] [address] [place] CBC W Auto Differential pane l (Bld)on 06-28-2025 Basophils (Bld) [#/Vol] 0.05 10*3/uL [facility] Basophils/100 WBC (Bld) 0.6 % C [facility] Differential cell count method Nom (Bld) Auto [facility] Eosinophils (Bld) [#/Vol] 0.04 10*3/uL [facility] Eosinophils/100 WBC (Bld) 0.5 % [facility] Erythrocyte distribution width (RBC) [Ratio] 12.8 % 11.5 - 15.0 % [facility] Hematocrit (Bld) [Volume fraction] 42.1 % 36.0 - 46.0 % [facility] Hemoglobin (Bld) [Mass/Vol] 13.9 g/dL 11.5 - 15.5 g/dL [facility] Immature granulocytes (Bld) [#/Vol] 0.03 10*3/uL [facility] Immature granulocytes/100 WBC (Bld) 0.4 % [facility] Lymphocytes (Bld) [#/Vol] 2.04 10*3/uL [facility] Lymphocytes/100 WBC (Bld) 25.5 % [facility] MCH (RBC) [Entitic mass] 29.2 pg 26. 0 - 34.[address] [facility] MCHC (RBC) [Mass/Vol] 33.0 g/dL 30.5 - 36.0 g/dL [facility] MCV (RBC) [Entitic vol] 88.4 fL 80.0 - 100.[address] [facility] Monocytes (Bld) [#/Vol] 0.70 10*3/uL [facility] Monocytes/100 WBC (Bld) 8.8 % C [facility] Neutrophils (Bld) [#/Vol] 5.14 10*3/uL [facility] Neutrophils/100 WBC (Bld) 64.2 % [facility] Nucleated RBC (Bld) [#/Vol] [facility] Nucleated RBC/100 WBC (Bld) [Ratio] 0.0 % /[address] [facility] Platelet mean volume (Bld) [Entitic vol] 12.2 fL 9.0 - 12.[address] [facility] Platelets (Bld) [#/Vol] 192 10*3/uL [facility] Comment on above: Results checked and verified.No clot detected. RBC (Bld) [#/Vol] 4.76 10*6/uL 3.90 - 5.2 0 m/uL [facility] WBC (Bld) [#/Vol] 8.00 10*3/uL [facility] Basophils (Bld) [#/Vol] 0.05 10*3/uL Normal <0.11 [facility] Comment on above: Order Comment: Speci men Type: BLOOD SPECIMENOrdering Facility: [facility] Address: [address] [place] [address] Performed By: #### 5 7021-8 ####[facility] LABCLIA [id number] [place] [address] [place] Basophils/100 WBC (Bld) 0.6 % Normal C [facility] Comment on above: Order Comment: Speci men Type: BLOOD SPECIMENOrdering Facility: [facility] Address: [address] [place] [address] Performed By: #### 5 7021-8 ####[facility] LABCLIA [id number] [place] [address] [place] Differential cell count method Nom (Bld) Auto Normal [facility] Comment on above: Order Comment: Speci men Type: BLOOD SPECIMENOrdering Facility: [facility] Address: [address] [place] [address] Performed By: #### 5 7021-8 ####[facility] LABCLIA [id number] [place] [address] [place] Eosinophils (Bld) [#/Vol] 0.04 10*3/uL Normal <0.46 [facility] Comment on above: Order Comment: Speci men Type: BLOOD SPECIMENOrdering Facility: [facility] Address: [address] [place] [address] Performed By: #### 5 7021-8 ####[facility] LABCLIA [id number] [place] [address] [place] Eosinophils/100 WBC (Bld) 0.5 % Normal [facility] Comment on above: Order Comment: Speci men Type: BLOOD SPECIMENOrdering Facility: [facility] Address: [address] [place] [address] Performed By: #### 5 7021-8 ####[facility] LABCLIA [id number] [place] [address] [place] Erythrocyte distribution width (RBC) [Ratio] 12.8 % Normal 11.5-15.0 [facility] Comment on above: Order Comment: Speci men Type: BLOOD SPECIMENOrdering Facility: [facility] Address: [address] [place] [address] Performed By: #### 5 7021-8 ####[facility] LABCLIA [id number] [place] [address] [place] Hematocrit (Bld) [Volume fraction] 42.1 % Normal 36.0-46.0 [facility] Comment on above: Order Comment: Speci men Type: BLOOD SPECIMENOrdering Facility: [facility] Address: [address] [place] [address] Performed By: #### 5 7021-8 ####[facility] LABCLIA [id number] [place] [address] [place] Hemoglobin (Bld) [Mass/Vol] 13.9 g/dL Normal 11.5-15.5 [facility] Comment on above: Order Comment: Speci men Type: BLOOD SPECIMENOrdering Facility: [facility] Address: [address] [place] [address] Performed By: #### 5 7021-8 ####[facility] LABCLIA [id number] [place] [id number] [place] Immature granulocytes (Bld) [#/Vol] 0.03 10*3/uL Normal <0.10 [facility] Comment on above: Order Comment: Speci men Type: BLOOD SPECIMENOrdering Facility: [facility] Address: [address] [place] [address] Performed By: #### 5 7021-8 ####[facility] LABCLIA [id number] [place] [address] [place] Immature granulocytes/100 WBC (Bld) 0.4 % Normal [facility] Comment on above: Order Comment: Speci men Type: BLOOD SPECIMENOrdering Facility: [facility] Address: [address] [place] [address] Performed By: #### 5 7021-8 ####[facility] LABIA [id number] [place] [address] [place] Lymphocytes (Bld) [#/Vol] 2.04 10*3/uL Normal 1.00-4.00 [facility] Comment on above: Order Comment: Speci men Type: BLOOD SPECIMENOrdering [facility] Address: [address] [place] [address] Performed By: #### 5 7021-8 ####[facility] LABCLIA [id number] [address] [place] Lymphocytes/100 WBC (Bld) 25.5 % Normal [facility] Comment on above: Order Comment: Speci men Type: BLOOD SPECIMENOrdering Facility: [facility] Address: [address] [place] [address] Performed By: #### 5 7021-8 ####[facility] LABCLIA [id number] [place] [address] [place] MCH (RBC) [Entitic mass] 29.2 pg Normal 26.0-34.0 [facility] Comment on above: Order Comment: Speci men Type: BLOOD SPECIMENOrdering Facility: [facility] Address: [address] [place] [address] Performed By: #### 5 7021-8 ####[facility] LABCLIA [id number] [place] [address] [place] MCHC (RBC) [Mass/Vol] 33.0 g/dL Normal 30.5-36.0 [facility] Comment on above: Order Comment: Speci men Type: BLOOD SPECIMENOrdering Facility: [facility] Address: [address] [place] [address] Performed By: #### 5 7021-8 ####[facility] LABCLIA [id number] [place] [address] [place] MCV (RBC) [Entitic vol] 88.4 fL Normal 80.0-100.0 [facility] Comment on above: Order Comment: Speci men Type: BLOOD SPECIMENOrdering Facility: [facility] Address: [address] [place] [address] Performed By: #### 5 7021-8 ####[facility] LABIA [id number] [place] [address] [place] Monocytes (Bld) [#/Vol] 0.70 10*3/uL Normal <0.87 [facility] Comment on above: Order Comment: Speci men Type: BLOOD SPECIMENOrdering Facility: [facility] Address: [address] [place] [address] Performed By: #### 5 7021-8 ####[facility] LABCLIA [id number] [address] [place] Monocytes/100 WBC (Bld) 8.8 % Normal C [facility] Comment on above: Order Comment: Speci men Type: BLOOD SPECIMENOrdering Facility: [facility] Address: [address] [place] [address] Performed By: #### 5 7021-8 ####[facility] LABCLIA [id number] [place] [address] [place] Neutrophils (Bld) [#/Vol] 5.14 10*3/uL Normal 1.45-7.50 [facility] Comment on above: Order Comment: Speci men Type: BLOOD SPECIMENOrdering Facility: [facility] Address: [address] [place] [address] Performed By: #### 5 7021-8 ####[facility] LABCLIA [id number] [place] [address] [place] Neutrophils/100 WBC (Bld) 64.2 % Normal [facility] Comment on above: Order Comment: Speci men Type: BLOOD SPECIMENOrdering Facility: [facility] Address: [address] [place] [address] Performed By: #### 5 7021-8 ####[facility] LABCLIA [id number] [place] [address] [place] Nucleated RBC (Bld) [#/Vol] 10*3/uL Normal <0.01 [facility] Comment on above: Order Comment: Speci men Type: BLOOD SPECIMENOrdering Facility: [facility] Address: [address] [place] [address] Performed By: #### 5 7021-8 ####[facility] LABCLIA [id number] [place] [address] [place] Nucleated RBC/100 WBC (Bld) [Ratio] 0.0 /100 WBC Normal [facility] Comment on above: Order Comment: Speci men Type: BLOOD SPECIMENOrdering Facility: [facility] Address: [address] [place] [address] Performed By: #### 5 7021-8 ####[facility] LABCLIA [id number] [place] [address] [place] Platelet mean volume (Bld) [Entitic vol] 12.2 fL Normal 9.0-12.7 [facility] Comment on above: Order Comment: Speci men Type: BLOOD SPECIMENOrdering Facility: [facility] Address: [address] [place] [address] Performed By: #### 5 7021-8 ####[facility] LABCLIA [id number] [place] [address] [place] Platelets (Bld) [#/Vol] 192 10*3/uL Normal 150-400 [facility] Comment on above: Order Comment: Speci men Type: BLOOD SPECIMENOrdering Facility: [facility] Address: [address] [place] [address] Result Comment: Resu lts checked and verified.No clot detected. Performed By: #### 5 7021-8 ####[facility] LABIA [id number] [place] [address] [place] RBC (Bld) [#/Vol] 4.76 10*6/uL Normal 3.90-5.20 [facility] Comment on above: Order Comment: Speci men Type: BLOOD SPECIMENOrdering Facility: [facility] Address: [address] [place] [address] Performed By: #### 5 7021-8 ####[facility] LABIA [id number] [place] [address] [place] WBC (Bld) [#/Vol] 8.00 10*3/uL Normal 3.70-11.00 [facility] Comment on above: Order Comment: Speci men Type: BLOOD SPECIMENOrdering Facility: [facility] Address: [address] [place] [address] Performed By: #### 5 7021-8 ####[facility] LABIA [id number] [place] [id number] [place] CNOVon 06-28-2025 CNOV Normal [facility] Cobalamin (Vitamin B12) [Mas s/Vol]on 06-28-2025 Interpretation and review of laboratory results Normal [facility] HbA1c (Bld)on 06-28-2025 Average glucose Estimated from glycated hemoglobin (Bld) [Mass/Vol] 131 mg/dL [facility] Comment on above: eAG: (Estimated aver age glucose) is a calculated value from HgbA1c and is motor vehicle field representative of the average blood glucose level in the last 2-3 month period. HbA1c (Bld) [Mass fraction] 6.2 % High 4.3 - 5.6 % [facility] Comment on above: [place] Diabetes As sociation guidelines indicate that patients with HgbA1c in the range 5.7-6.4% are at increased risk for development of diabetes, and intervention by lifestyle modification may be beneficial. HgbA1c greater or equal to 6.5% is considered diagnostic of diabetes. Interpretation and review of laboratory results Abnormal [facility] Average glucose Estimated from glycated hemoglobin (Bld) [Mass/Vol] 131 mg/dL Normal [facility] Comment on above: Order Comment: Rand gonzalez Type: BLOOD SPECIMENOrdering Facility: [facility] Address: [address] [place] [address] Result Comment: eAG: (Estimated average glucose) is a calculated value from HgbA1c and is motor vehicle field representative of the average blood glucose level in the last 2-3 month period. Performed By: #### 5 5454-3 ####[facility] LABCLIA [id number] [place] [address] [place] HbA1c (Bld) [Mass fraction] 6.2 % High 4.3-5.6 [facility] Comment on above: Order Comment: Rand gonzalez Type: BLOOD SPECIMENOrdering Facility: [facility] Address: [address] [place] [address] Result Comment: [place] Diabetes Association guidelines indicate that patients with HgbA1c in the range 5.7-6.4% are at increased risk for development of diabetes, and intervention by lifestyle modification may be beneficial. HgbA1c greater or equal to 6.5% is considered diagnostic of diabetes. Performed By: #### 5 5454-3 ####[facility] LABCLIA [id number] [place] [id number] [place] Magnesium SerPl-mCncon 06-28 Magnesium [Mass/Vol] 2.1 mg/dL Normal 1.7-2.3 [facility] Comment on above: Order Comment: Speci men Type: BLOOD SPECIMENOrdering Facility: [facility] Address: [address] [place] [address] Performed By: #### 2 4321-2, 99748-7, 3016-3, 78333-6 ####[facility] LABCLIA [id number] [place] [address] [place] NT-proBNP SerPl-mCncon 06-28 Natriuretic peptide.B prohormone N-Terminal [Mass/Vol] <36 Normal <125 [facility] Comment on above: Order Comment: Speci men Type: BLOOD SPECIMENOrdering Facility: [facility] Address: [address] [place] [address] Performed By: #### 2 4321-2, , 6-3, 34315-4 ####[facility] LABCLIA [id number] [place] [address] [place] TSH SerPl-aCncon 06-28-2025 TSH Qn 0.986 m[IU]/L Normal 0.270-4.200 [facility] Comment on above: Order Comment: Speci men Type: BLOOD SPECIMENOrdering Facility: [facility] Address: [address] [place] [address] Performed By: #### 2 4321-2, 12064-8, 3015-3, 13940-4 ####[facility] LABIA [id number] [place] [address] [place] VITAMIN B12on 06-28-2025 Cobalamin (Vitamin B12) [Mass/Vol] 785 pg/mL 232 - 1245 pg/mL [facility] Vit B12 SerPl-mCncon 025 Cobalamin (Vitamin B12) [Mass/Vol] 785 pg/mL Normal 232-1245 [facility] Comment on above: Order Comment: Speci men Type: BLOOD SPECIMENOrdering Facility: [facility] Address: [address] [place] [address] Performed By: #### 2 132-9 ####[facility] LABCLIA [id number] [place] [address] [place] [facility] deOrdered By: Basil Velasquez on 06-23-2025 Glucose [Mass/Vol] 119 mg/dL High 74-106 [facility] Comment on above: MANAGEMENT OF PATIEN T CARE PER NURSING PROTOCOL Absolute lymphocyte countOrd ered By: Aleksandar Jones on 06-21-2025 Lymphocytes Auto (Unsp spec) [#/Vol] 2.07 10*3/uL 0.83-4.51 [facility] Absolute neutrophil countOrd ered By: Aleksandar Jones on 06-21-2025 Neutrophils (Bld) [#/Vol] 9.0 10*3/uL High 2.0-7.7 [facility] Automated lymphocyte count a s percentage of total leukocytesOrdered By: Aleksandar Jones on 06-21-2025 Lymphocytes/100 WBC Auto (Unsp spec) 17.3 % Low 19-41 [facility] Basophil percentageOrdered B y: Aleksandar Jones on 06-21-2025 Basophils/100 WBC (Bld) 0.4 % 0-1 [facility] Eosinophil percentageOrdered By: Aleksandar Jones on 06-21-2025 Eosinophils/100 WBC (Bld) 0.3 % 0-5 [facility] Erythrocyte distribution wid th ratioOrdered By: Aleksandar Jones on 06-21-2025 Erythrocyte distribution width (RBC) [Ratio] 13.0 % 11.6-14.6 [facility] Erythrocyte distribution wid th standard deviationOrdered By: Aleksandar Jones on 06-21-2025 Erythrocyte distribution width (RBC) [Ratio] 42.5 fl 35.1-43.9 [facility] Hematocrit Auto (Bld) [Volum e fraction]Ordered By: Aleksandar Jones on 06-21-2025 Hematocrit (Bld) [Volume fraction] 39.5 % 37-47 [facility] Hemoglobin measurementOrdere d By: Aleksandar Jones on 06-21-2025 Hemoglobin (Bld) [Mass/Vol] 13.0 g/dL 12.0-15.0 [facility] Immature granulocytes/100 WB C Auto (Bld)Ordered By: Aleksandar Jones on 06-21-2025 Immature granulocytes/100 WBC (Bld) 0.500 % 0.0-0.9 [facility] Comment on above: IG% - Immature Granu locytes (promyelocytes, myelocytes and metamyelocytes) > 1% indicates that a LEFT SHIFT is Present. MCV (mean corpuscular volume ) determinationOrdered By: Aleksandar Jones on 06-21-2025 MCV (RBC) [Entitic vol] 88.8 fL 81-99 [facility] Mean corpuscular hemoglobin (MCH) determinationOrdered By: Aleksandar Jones on 06-21-2025 MCH (RBC) [Entitic mass] 29.2 pg 27.0-32.0 [facility] Mean corpuscular hemoglobin concentration (MCHC) determinationOrdered By: Aleksandar Jones on 06-21-2025 MCHC (RBC) [Mass/Vol] 32.9 g/dL 32-36 [facility] Mean platelet volume determi nationOrdered By: Aleksandar Jones on 06-21-2025 Platelet mean volume (Bld) [Entitic vol] 11.1 fL 6.2-12.0 [facility] Monocyte percentageOrdered B y: Aleksandar Jones on 06-21-2025 Monocytes/100 WBC (Bld) 6.4 % 0-10 [facility] Neutrophil percentageOrdered By: Aleksandar Jones on 06-21-2025 Neutrophils/100 WBC (Bld) 75.1 % High 47-70 [facility] Nucleated red blood cell per centageOrdered By: Aleksandar Jones on 06-21-2025 Nucleated RBC/100 WBC (Bld) [Ratio] 0 % 0-5 [facility] Platelet countOrdered By: Julio Cesar Jones on 06-21-2025 Platelets (Bld) [#/Vol] 226 10*3/uL 150-450 [facility] RBC Auto (Bld) [#/Vol]Ordere d By: Aleksandar Jones on 06-21-2025 RBC (Bld) [#/Vol] 4.45 10*6/uL 4.2-5.4 [facility] White blood cell (WBC) count Ordered By: Aleksandar Jones on 06-21-2025 WBC (Bld) [#/Vol] 11.9 10*3/uL High 4.4-11.0 [facility] CNPNon 06-03-2025 CNPN Normal [facility] Absolute lymphocyte countOrd ered By: [facility] on 05-24-2025 Lymphocytes Auto (Unsp spec) [#/Vol] 1.84 10*3/uL 0.83-4.51 [facility] Absolute neutrophil countOrd ered By: [facility] on 05-24-2025 Neutrophils (Bld) [#/Vol] 5.3 10*3/uL 2.0-7.7 [facility] Automated lymphocyte count a s percentage of total leukocytesOrdered By: [facility] on 05-24-2025 Lymphocytes/100 WBC Auto (Unsp spec) 22.7 % 19-41 [facility] Basophil percentageOrdered B y: [facility] on 05-24-2025 Basophils/100 WBC (Bld) 0.5 % 0-1 [facility] Eosinophil percentageOrdered By: [facility] on 05-24-2025 Eosinophils/100 WBC (Bld) 0.5 % 0-5 [facility] Erythrocyte distribution wid th ratioOrdered By: [facility] on 05-24-2025 Erythrocyte distribution width (RBC) [Ratio] 13.3 % 11.6-14.6 [facility] Erythrocyte distribution wid th standard deviationOrdered By: [facility] on 05-24-2025 Erythrocyte distribution width (RBC) [Ratio] 43.7 fl 35.1-43.9 [facility] Hematocrit Auto (Bld) [Volum e fraction]Ordered By: [facility] on 05-24-2025 Hematocrit (Bld) [Volume fraction] 39.5 % 37-47 [facility] Hemoglobin measurementOrdere d By: [facility] on 05-24-2025 Hemoglobin (Bld) [Mass/Vol] 13.3 g/dL 12.0-15.0 [facility] Immature granulocytes/100 WB C Auto (Bld)Ordered By: [facility] on 05-24-2025 Immature granulocytes/100 WBC (Bld) 0.900 % 0.0-0.9 [facility] Comment on above: IG% - Immature Granu locytes (promyelocytes, myelocytes and metamyelocytes) > 1% indicates that a LEFT SHIFT is Present. MCV (mean corpuscular volume ) determinationOrdered By: [facility] on 05-24-2025 MCV (RBC) [Entitic vol] 89.4 fL 81-99 [facility] Mean corpuscular hemoglobin (MCH) determinationOrdered By: [facility] on 05-24-2025 MCH (RBC) [Entitic mass] 30.1 pg 27.0-32.0 [facility] Mean corpuscular hemoglobin concentration (MCHC) determinationOrdered By: [facility] on 05-24-2025 MCHC (RBC) [Mass/Vol] 33.7 g/dL 32-36 [facility] Mean platelet volume determi nationOrdered By: [facility] on 05-24-2025 Platelet mean volume (Bld) [Entitic vol] 10.1 fL 6.2-12.0 [facility] Monocyte percentageOrdered B y: [facility] on 05-24-2025 Monocytes/100 WBC (Bld) 9.4 % 0-10 [facility] Neutrophil percentageOrdered By: [facility] on 05-24-2025 Neutrophils/100 WBC (Bld) 66.0 % 47-70 [facility] Nucleated red blood cell per centageOrdered By: [facility] on 05-24-2025 Nucleated RBC/100 WBC (Bld) [Ratio] 0 % 0-5 [facility] Platelet countOrdered By: [facility] on 05-24-2025 Platelets (Bld) [#/Vol] 220 10*3/uL 150-450 [facility] RBC Auto (Bld) [#/Vol]Ordere d By: [facility] on 05-24-2025 RBC (Bld) [#/Vol] 4.42 10*6/uL 4.2-5.4 [facility] White blood cell (WBC) count Ordered By: [facility] on 05-24-2025 WBC (Bld) [#/Vol] 8.1 10*3/uL 4.4-11.0 [facility] 05-19-2025 CNPN Normal [facility] 05-11-2025 [facility] Normal [facility] Absolute lymphocyte countOrd ered By: [facility] on 04-26-2025 Lymphocytes Auto (Unsp spec) [#/Vol] 1.96 10*3/uL 0.83-4.51 [facility] Absolute neutrophil countOrd ered By: [facility] on 04-26-2025 Neutrophils (Bld) [#/Vol] 8.8 10*3/uL High 2.0-7.7 [facility] Automated lymphocyte count a s percentage of total leukocytesOrdered By: [facility] on 04-26-2025 Lymphocytes/100 WBC Auto (Unsp spec) 16.7 % Low 19-41 [facility] Basophil percentageOrdered B y: [facility] on 04-26-2025 Basophils/100 WBC (Bld) 0.4 % 0-1 [facility] Eosinophil percentageOrdered By: [facility] on 04-26-2025 Eosinophils/100 WBC (Bld) 0.3 % 0-5 [facility] Erythrocyte distribution wid th ratioOrdered By: [facility] on 04-26-2025 Erythrocyte distribution width (RBC) [Ratio] 13.9 % 11.6-14.6 [facility] Erythrocyte distribution wid th standard deviationOrdered By: [facility] on 04-26-2025 Erythrocyte distribution width (RBC) [Ratio] 44.7 fl High 35.1-43.9 [facility] Hematocrit Auto (Bld) [Volum e fraction]Ordered By: [facility] on 04-26-2025 Hematocrit (Bld) [Volume fraction] 37.6 % 37-47 [facility] Hemoglobin measurementOrdere d By: [facility] on 04-26-2025 Hemoglobin (Bld) [Mass/Vol] 12.6 g/dL 12.0-15.0 [facility] Immature granulocytes/100 WB C Auto (Bld)Ordered By: [facility] on 04-26-2025 Immature granulocytes/100 WBC (Bld) 0.500 % 0.0-0.9 [facility] Comment on above: IG% - Immature Granu locytes (promyelocytes, myelocytes and metamyelocytes) > 1% indicates that a LEFT SHIFT is Present. MCV (mean corpuscular volume ) determinationOrdered By: [facility] on 04-26-2025 MCV (RBC) [Entitic vol] 88.1 fL 81-99 [facility] Mean corpuscular hemoglobin (MCH) determinationOrdered By: [facility] on 04-26-2025 MCH (RBC) [Entitic mass] 29.5 pg 27.0-32.0 [facility] Mean corpuscular hemoglobin concentration (MCHC) determinationOrdered By: [facility] on 04-26-2025 MCHC (RBC) [Mass/Vol] 33.5 g/dL 32-36 [facility] Mean platelet volume determi nationOrdered By: [facility] on 04-26-2025 Platelet mean volume (Bld) [Entitic vol] 10.9 fL 6.2-12.0 [facility] Monocyte percentageOrdered B y: [facility] on 04-26-2025 Monocytes/100 WBC (Bld) 7.3 % 0-10 [facility] Neutrophil percentageOrdered By: [facility] on 04-26-2025 Neutrophils/100 WBC (Bld) 74.8 % High 47-70 [facility] Nucleated red blood cell per centageOrdered By: [facility] on 04-26-2025 Nucleated RBC/100 WBC (Bld) [Ratio] 0 % 0-5 [facility] Platelet countOrdered By: [facility] on 04-26-2025 Platelets (Bld) [#/Vol] 193 10*3/uL 150-450 [facility] RBC Auto (Bld) [#/Vol]Ordere d By: [facility] on 04-26-2025 RBC (Bld) [#/Vol] 4.27 10*6/uL 4.2-5.4 [facility] White blood cell (WBC) count Ordered By: [facility] on 04-26-2025 WBC (Bld) [#/Vol] 11.7 10*3/uL High 4.4-11.0 [facility] Anion gap in Serum or Plasma Ordered By: Aleksandar Jones on 04-11-2025 Anion gap [Moles/Vol] 12 mmol/L - [facility] BUN/creatinine ratioOrdered By: Aleksandar Jones on 04-11-2025 Urea nitrogen/Creatinine [Mass ratio] 19.6 mg/mg 10-20 [facility] Basic Metabolic Profile (BMP )on 04-11-2025 BUN/CRE 19.6 RATIO Normal 10-20 [facility] Comment on above: Order Comment: 135 Performed By: #### L 500.2500, L100.0100 #### [facility] [address] [place], [address] Calcium [Mass/Vol] 9.7 mg/dL Normal 7.6-11.0 [facility] Comment on above: Order Comment: 135 Performed By: #### L 500.2500, L100.0100 #### [facility] [address] [place], [address] Chloride [Moles/Vol] 92 mmol/L Low 98-108 [facility] Comment on above: Order Comment: 135 Performed By: #### L 500.2500, L100.0100 #### [facility] [address] [place], [address] CO2 [Moles/Vol] 25.0 mmol/L Normal 21.0-32.0 [facility] Comment on above: Order Comment: 135 Performed By: #### L 500.2500, L100.0100 #### [facility] [address] [place], [address] Creatinine [Mass/Vol] 0.56 mg/dL Low 0.70-1.20 [facility] Comment on above: Order Comment: 135 Performed By: #### L 500.2500, L100.0100 #### [facility] [address] [place], [address] GAP 12 Normal 5-15 [facility] Comment on above: Order Comment: 135 Performed By: #### L 500.2500, L100.0100 #### [facility] [address] [place], [address] GFR/1.73 sq M.predicted among non-blacks MDRD (S/P/Bld) [Vol rate/Area] 104 mL/min/{1.73_m2} Normal >60 [facility] Comment on above: Order Comment: 135 Result Comment: mL/m in/1.73m2 CKD-EPI Creatinine Equation (2020) Performed By: #### L 500.2500, L100.0100 #### [facility] [address] [place], [address] Glucose [Mass/Vol] 88 mg/dL Normal 70-99 [facility] Comment on above: Order Comment: 135 Performed By: #### L 500.2500, L100.0100 #### [facility] [address] [place], [address] Potassium [Moles/Vol] 4.4 mmol/L Normal 3.3-5.1 [facility] Comment on above: Order Comment: 135 Performed By: #### L 500.2500, L100.0100 #### [facility] [address] [place], [address] Sodium [Moles/Vol] 129 mmol/L Low 133-145 [facility] Comment on above: Order Comment: 135 Performed By: #### L 500.2500, L100.0100 #### [facility] [address] [place], [address] Urea nitrogen [Mass/Vol] 11 mg/dL Normal 4-19 [facility] [facility] Comment on above: Order Comment: 135 Performed By: #### L 500.2500, L100.0100 #### [facility] [address] [place], [address] Carbon dioxide, total [Moles /volume] in Central venous bloodOrdered By: Aleksandar Jones on 04-11-2025 CO2 [Moles/Vol] 25.0 mmol/L 21.0-32.0 [facility] Chloride assayOrdered By: Julio Cesar Jones on 04-11-2025 Chloride [Moles/Vol] 92 mmol/L Low 98-108 [facility] Glomerular filtration rate ( GFR) estimation/1.73 sq m using serum, plasma, or whole bOrdered By: Aleksandar Jones on 04-11-2025 GFR/1.73 sq M.predicted among non-blacks MDRD (S/P/Bld) [Vol rate/Area] 104 mL/min/{1.73_m2} >60 [facility] Comment on above: mL/min/1.73m2 CKD-EP I Creatinine Equation (2020) Potassium measurement (mass/ volume)Ordered By: Aleksandar Jones on 04-11-2025 Potassium (Unsp spec) [Mass/Vol] 4.4 mmol/L 3.3-5.1 [facility] Serum creatinine measurement (mass/volume)Ordered By: Aleksandar Jones on 04-11-2025 Creatinine [Mass/Vol] 0.56 mg/dL Low 0.70-1.20 [facility] Serum glucose measurement (m ass/volume)Ordered By: Aleksandar Jones on 04-11-2025 Glucose [Mass/Vol] 88 mg/dL 70-99 [facility] Serum or plasma calcium lawrence urement (mass/volume)Ordered By: Aleksandar Jones on 04-11-2025 Calcium [Mass/Vol] 9.7 mg/dL 7.6-11.0 [facility] Serum or plasma urea nitroge n measurement (mass/volume)Ordered By: Aleksandar Jones on 04-11-2025 Urea nitrogen [Mass/Vol] 11 mg/dL 4-19 [facility] Sodium levelOrdered By: Jeancarlos devinem Robert on 04-11-2025 Sodium [Moles/Vol] 129 mmol/L Low 133-145 [facility] CNOVon 04-04-2025 CNOV Normal [facility] Urine Cultureon 03-31-2025 [facility] Mixed Gram Positive Organisms Rothsay Count 11,000-25,000 MIXC Mixed contaminants. Submit a new specimen if indicated. Normal [facility] Comment on above: Performed By: #### L 500.4050, L501.2450, L100.0500, L501.4020 #### [facility] [address] [place], [address] Bilirub Conj SerPl-mCncon Bilirubin.conjugated [Mass/Vol] 0.2 mg/dL Normal <0.3 [facility] Comment on above: Order Comment: Speci men Type: BLOOD SPECIMENOrdering Facility: [facility] Address: [address] [place] [address] Performed By: #### 3 3762-6, 40572-8, 87722-5 ####[facility] LABCLIA [id number] [place] [id number] [place] CBC W/Diff, Automatedon - Absolute Neut 5.8 X10 3/uL Normal 2.0-7.7 [facility] Comment on above: Order Comment: 135 Performed By: #### L 500.4050, L501.2450, L100.0500, L501.4020 #### [facility] [address] [place], [place], [address] CNOVon 03-29-2025 CNOV Normal [facility] Comprehensive metabolic 2000 panelon 03-29-2025 Albumin [Mass/Vol] 4.5 g/dL Normal 3.9-4.9 [facility] Comment on above: Order Comment: Speci men Type: BLOOD SPECIMENOrdering Facility: [facility] Address: [address] [place] [address] Performed By: #### 3 3762-6, 16281-4, 89366-5 ####[facility] LABCLIA [id number] [place] [id number] [place] ALP [Catalytic activity/Vol] 119 U/L Normal 34-123 [facility] Comment on above: Order Comment: Speci men Type: BLOOD SPECIMENOrdering Facility: [facility] Address: [address] [place] [address] Performed By: #### 3 3762-6, 11675-0, 65500-4 ####[facility] LABCLIA [id number] [place] [id number] [place] ALT [Catalytic activity/Vol] 35 U/L Normal 7-38 [facility] Comment on above: Order Comment: Speci men Type: BLOOD SPECIMENOrdering Facility: [facility] Address: [address] [place] [address] Performed By: #### 3 3762-6, 31293-4, 89633-8 ####[facility] LABCLIA [id number] [facility] AVENUED[facility] [address] [address] [place] Anion gap [Moles/Vol] 13 mmol/L Normal 8-15 [facility] Comment on above: Order Comment: Speci men Type: BLOOD SPECIMENOrdering Facility: [facility] Address: [address] [place] [address] Performed By: #### 3 3762-6, 99136-7, 30489-0 ####[facility] LABCLIA [id number] [facility] [place] [address] [place] AST [Catalytic activity/Vol] 21 U/L Normal 13-35 [facility] Comment on above: Order Comment: Speci men Type: BLOOD SPECIMENOrdering Facility: [facility] Address: [address] [place] [address] Performed By: #### 3 3762-6, 97310-2, 04905-0 ####[facility] LABCLIA [id number] [facility] [place] [id number] [place] Bilirubin [Mass/Vol] 0.4 mg/dL Normal 0.2-1.3 [facility] Comment on above: Order Comment: Speci men Type: BLOOD SPECIMENOrdering Facility: [facility] Address: [address] [place], [place] [address] Performed By: #### 3 3762-6, 33660-8, 36479-4 ####[facility] LABCLIA [id number] [facility] AVENUERANCHO SPRINGS MEDICAL CENTERK [address] [place] [address] [place] Calcium [Mass/Vol] 9.6 mg/dL Normal 8.5-10.2 [facility] Comment on above: Order Comment: Speci men Type: BLOOD SPECIMENOrdering Facility: [facility] Address: [address] [place] [address] Performed By: #### 3 3762-6, 65312-4, 38378-5 ####[facility] LABCLIA [id number] [address] [address] [place] Chloride [Moles/Vol] 95 mmol/L Low 98-107 [facility] Comment on above: Order Comment: Speci men Type: BLOOD SPECIMENOrdering Facility: [facility] Address: [address] [place] [address] Performed By: #### 3 3762-6, 99216-1, 66013-2 ####[facility] LABCLIA [id number] [place] [address] [place] CO2 [Moles/Vol] 23 mmol/L Normal 22-30 [facility] Comment on above: Order Comment: Speci men Type: BLOOD SPECIMENOrdering Facility: [facility] Address: [address] [place] [address] Performed By: #### 3 3762-6, 23082-6, 83284-8 ####[facility] LABCLIA [id number] [place] [address] [place] Creatinine [Mass/Vol] 0.51 mg/dL Low 0.58-0.96 [facility] Comment on above: Order Comment: Speci men Type: BLOOD SPECIMENOrdering Facility: [facility] Address: [address] [place] [address] Performed By: #### 3 3762-6, 14802-6, 30885-6 ####[facility] LABCLIA [id number] [place] [id number] [place] Creatinine and Glomerular filtration rate.predicted panel (S/P/Bld) 106 mL/min/1.73m??? Normal >=60 [facility] Comment on above: Order Comment: Speci men Type: BLOOD SPECIMENOrdering Facility: [facility] Address: [address] [place] [id number] Result Comment: Gia mated Glomerular Filtration Rate [...] accurately reflect actual GFR. Performed By: #### 3 3762-6, 12038-3, 31705-7 ####[facility] LABCLIA [id number] [place] [address] [place] Glucose [Mass/Vol] 182 mg/dL High 74-99 [facility] Comment on above: Order Comment: Rand gonzalez Type: BLOOD SPECIMENOrdering Facility: [facility] Address: [address] [place] [address] Result Comment: The [place] Diabetes Association (ADA) provides guidance for cutoff [...] Standards of Medical Care in Diabetes 2016, [place] Diabetes Association. Diabetes Care. 2016.39(Suppl 1). Performed By: #### 3 3762-6, 04370-6, 92527-9 ####[facility] LABIA [id number] [place] [id number] [place] Potassium [Moles/Vol] 4.4 mmol/L Normal 3.7-5.1 [facility] Comment on above: Order Comment: Rand gonzalez Type: BLOOD SPECIMENOrdering Facility: [facility] Address: [address] [place] [id number] Performed By: #### 3 3762-6, 68353-7, 79856-3 ####[facility] LABIA [id number] [address] [address] [place] Protein [Mass/Vol] 7.8 g/dL Normal 6.3-8.0 [facility] Comment on above: Order Comment: Speci men Type: BLOOD SPECIMENOrdering Facility: [facility] Address: [address] [place] [address] Performed By: #### 3 3762-6, 11193-4, 12890-6 ####[facility] LABIA [id number] [place] [address] [place] Sodium [Moles/Vol] 131 mmol/L Low 136-144 [facility] Comment on above: Order Comment: Speci men Type: BLOOD SPECIMENOrdering Facility: [facility] Address: [address] [place] [address] Performed By: #### 3 3762-6, 57918-6, 40448-6 ####[facility] [id number] [place] [address] [place] Urea nitrogen [Mass/Vol] 10 mg/dL Normal 7-21 [facility] Comment on above: Order Comment: Speci men Type: BLOOD SPECIMENOrdering Facility: [facility] Address: [address] [place] [address] Performed By: #### 3 3762-6, 77915-3, 89475-1 ####[facility] [id number] [place] [id number] [place] HBV DNA Qn (S)on 03-29-2025 HBV DNA LUIS M+probe Ql Not detected Normal Not detected [facility] Comment on above: Order Comment: Speci men Type: BLOOD SPECIMENOrdering Facility: [facility] Address: [address] [place] [address] Performed By: #### 1 1258-1 ####[facility] LABCLIA [id number] [place] [address] [place] HBV core Ab Ser Qlon 025 HBV core Ab Ql (S) Negative Normal Negative [facility] Comment on above: Order Comment: Rand gonzalez Type: BLOOD SPECIMENOrdering Facility: [facility] Address: [address] [place] [address] Result Comment: No e vidence of current or past infection with Hepatitis B virus. Should recent infection be suspected, repeat testing may be considered 3-4 weeks after this draw. Performed By: #### 2 2322-2, 5195-3, 19558-6, 64550-3 ####[facility] LABCLIA [id number] [place] [address] [place] HBV core IgM Ser Qlon 2024 HBV core IgM Ql (S) Positive Abnormal Negative [facility] Comment on above: Order Comment: Rand gonzalez Type: BLOOD SPECIMENOrdering Facility: [facility] Address: [address] [place] [address] Result Comment: The result suggests recent acute infection with Hepatitis B virus. Non-specific reactivity is not uncommon with this test. HBV core IgM antibody may also remain elevated for extended periods after an acute bout of infection. Clinical correlation required. Performed By: #### 2 2322-2, 5195-3, 00429-8, 09224-5 ####[facility] LABIA [id number] [place] [address] [place] HBV surface Ab Ql (S)on 03-13 HBV surface Ab Qn (S) <8.00 Normal [facility] Comment on above: Order Comment: Rand gonzalez Type: BLOOD SPECIMENOrdering Facility: [facility] Address: [address] [place] [address] Result Comment: <8 m IU/mL: No serological evidence of immunity to Hepatitis B Virus.>/= 8 to <12 mIU/mL: No serological evidence of immunity to Hepatitis B Virus.>/= 12 mIU/mL: Consistent with serological evidence of immunity to Hepatitis B Virus. Performed By: #### 2 2322-2, 5195-3, 77274-5, 76135-0 ####[facility] LABCLIA [id number] [place] [id number] [place] HBV surface Ab Ser Qlon 03-13 HBV surface Ab Ql (S) Negative Normal [facility] Comment on above: Order Comment: Speci men Type: BLOOD SPECIMENOrdering Facility: [facility] Address: [address] [place] [address] Result Comment: No s erological evidence of immunity to Hepatitis B Virus. Performed By: #### 2 2322-2, 5195-3, 54536-3, 77479-0 ####[facility] LABCLIA [id number] [address] [place] HBV surface Ag Ser Qlon 03-13 HBV surface Ag Ql (S) Negative Normal Negative [facility] Comment on above: Order Comment: Speci men Type: BLOOD SPECIMENOrdering Facility: [facility] Address: [address] [place] [address] Performed By: #### 2 2322-2, 5195-3, 71266-9, 60839-6 ####[facility] LABIA [id number] [place] [address] [place] HbA1c (Bld)on 03-29-2025 Average glucose Estimated from glycated hemoglobin (Bld) [Mass/Vol] 140 mg/dL [facility] Comment on above: eAG: (Estimated aver age glucose) is a calculated value from HgbA1c and is motor vehicle field representative of the average blood glucose level in the last 2-3 month period. HbA1c (Bld) [Mass fraction] 6.5 % High 4.3 - 5.6 % [facility] Comment on above: [place] Diabetes As sociation guidelines indicate that patients with HgbA1c in the range 5.7-6.4% are at increased risk for development of diabetes, and intervention by lifestyle modification may be beneficial. HgbA1c greater or equal to 6.5% is considered diagnostic of diabetes. Interpretation and review of laboratory results Abnormal [facility] Average glucose Estimated from glycated hemoglobin (Bld) [Mass/Vol] 140 mg/dL Normal [facility] Comment on above: Order Comment: Rand gonzalez Type: BLOOD SPECIMENOrdering Facility: [facility] Address: [address] [place] [address] Result Comment: eAG: (Estimated average glucose) is a calculated value from HgbA1c and is motor vehicle field representative of the average blood glucose level in the last 2-3 month period. Performed By: #### 5 5454-3 ####[facility] LABCLIA [id number] [place] [address] [place] HbA1c (Bld) [Mass fraction] 6.5 % High 4.3-5.6 [facility] Comment on above: Order Comment: Rand gonzalez Type: BLOOD SPECIMENOrdering Facility: [facility] Address: [address] [place] [address] Result Comment: [place] Diabetes Association guidelines indicate that patients with HgbA1c in the range 5.7-6.4% are at increased risk for development of diabetes, and intervention by lifestyle modification may be beneficial. HgbA1c greater or equal to 6.5% is considered diagnostic of diabetes. Performed By: #### 5 5454-3 ####[facility] LABCLIA [id number] [place] [address] [place] NT PRO BNPon 03-29-2025 Natriuretic peptide.B prohormone N-Terminal [Mass/Vol] pg/mL NINF - 125 pg/mL [facility] NT-proBNP SerPl-mCncon 03-29 Natriuretic peptide.B prohormone N-Terminal [Mass/Vol] <36 Normal <125 [facility] Comment on above: Order Comment: Rand gonzalez Type: BLOOD SPECIMENOrdering Facility: [facility] Address: [address] [place] [address] Performed By: #### 3 3762-6, 26196-3, 96689-1 ####[facility] LABCLIA [id number] [place] [address] [place] Natriuretic peptide.B prohor shade N-Terminal [Mass/Vol]on 03-29-2025 Interpretation and review of laboratory results Normal [facility] Urinalysis, Completeon 03-29 EPI,TRANSITION 0-5 SEEN Normal 0-5 [facility] Comment on above: Order Comment: CLEAN CATCH Performed By: #### L 500.4050, L501.2450, L100.0500, L501.4020 #### [facility] [address] [place], [address] BACTERIA 0 SEEN Normal None Seen [facility] Comment on above: Order Comment: CLEAN CATCH Performed By: #### L 500.4050, L501.2450, L100.0500, L501.4020 #### [facility] [address] [place], [address] EPI,SQUAMOUS 0 SEEN Normal 5-10 [facility] Comment on above: Order Comment: CLEAN CATCH Performed By: #### L 500.4050, L501.2450, L100.0500, L501.4020 #### [facility] [address] [place], [address] Mucus Ql (Urine sed) 0 SEEN Normal [facility] Comment on above: Order Comment: CLEAN CATCH Performed By: #### L 500.4050, L501.2450, L100.0500, L501.4020 #### [facility] [address] [place], [address] RBC 0 SEEN Normal 0-5 [facility] Comment on above: Order Comment: CLEAN CATCH Performed By: #### L 500.4050, L501.2450, L100.0500, L501.4020 #### [facility] [address] [place], [address] WBC 0 SEEN Normal 0-5 [facility] Comment on above: Order Comment: CLEAN CATCH Performed By: #### L 500.4050, L501.2450, L100.0500, L501.4020 #### [facility] [address] [place], [address] XR CHEST 2V FRONTAL/LATon XR CHEST 2V FRONTAL/LAT Normal C [facility] XR Chest PA and Lateralon IMPRESSION: No developing abnormality or acute process Indian Nanny: MILDRED Transcribe Date/Time: Mar 29 2025 2:38P Dictated by : EUSEBIA MARIN MD This examination was interpreted and the report reviewed and electronically signed by: EUSEBIA MARIN MD on Mar 29 2025 2:39PM [facility] DIVISION OF [...] soft tissues: Unremarkable. DIVISION OF RADIOLOGY Provider, [facility] - 03/29/2025 * * *Final Report* * [...] IMPRESSION: No developing abnormality or acute process Indian Nanny: MILDRED Transcribe Date/Time: Mar 29 2025 2:38P Dictated by : EUSEBIA MARIN MD This examination was interpreted and the report reviewed and electronically signed by: EUSEBIA MARIN MD on Mar 29 2025 2:39PM EST [facility] Radiology Study observation (narrative) [facility] XR Chest PA and LateralOrder ed By: Ccf Provider on 03-29-[address] [facility] Absolute neutrophil countOrd ered By: Aleksandar Jones on 03-28-2025 Neutrophils (Bld) [#/Vol] 5.8 10*3/uL 2.0-7.7 [facility] Anion gap in Serum or Plasma Ordered By: Aleksandar Jones on 03-28-2025 Anion gap [Moles/Vol] 13 mmol/L - [facility] BUN/creatinine ratioOrdered By: Aleksandar Jones on 03-28-2025 Urea nitrogen/Creatinine [Mass ratio] 29.2 mg/mg High 10- [facility] Basic Metabolic Profile (BMP )on 03-28-2025 BUN/CRE 29.2 RATIO High - [facility] Comment on above: Order Comment: 135 Performed By: #### L 500.4050, L501.2450, L100.0500, L501.4020 #### [facility] [address] [place], [address] Calcium [Mass/Vol] 9.2 mg/dL Normal 7.6-11.0 [facility] Comment on above: Order Comment: 135 Performed By: #### L 500.4050, L501.2450, L100.0500, L501.4020 #### [facility] [address] [place], [address] Chloride [Moles/Vol] 96 mmol/L Low 98-108 [facility] Comment on above: Order Comment: 135 Performed By: #### L 500.4050, L501.2450, L100.0500, L501.4020 #### [facility] [address] [place], [address] CO2 [Moles/Vol] 21.0 mmol/L Normal 21.0-32.0 [facility] Comment on above: Order Comment: 135 Performed By: #### L 500.4050, L501.2450, L100.0500, L501.4020 #### [facility] [address] [place], [address] Creatinine [Mass/Vol] 0.48 mg/dL Low 0.70-1.20 [facility] Comment on above: Order Comment: 135 Performed By: #### L 500.4050, L501.2450, L100.0500, L501.4020 #### [facility] [address] [place], [address] GAP 13 Normal 5-15 [facility] Comment on above: Order Comment: 135 Performed By: #### L 500.4050, L501.2450, L100.0500, L501.4020 #### [facility] [address] [place], [address] GFR/1.73 sq M.predicted among non-blacks MDRD (S/P/Bld) [Vol rate/Area] 108 mL/min/{1.73_m2} Normal >60 [facility] Comment on above: Order Comment: 135 Result Comment: mL/m in/1.73m2 CKD-EPI Creatinine Equation (2020) Performed By: #### L 500.4050, L501.2450, L100.0500, L501.4020 #### [facility] [address] [place], [address] Glucose [Mass/Vol] 169 mg/dL High 70-99 [facility] Comment on above: Order Comment: 135 Performed By: #### L 500.4050, L501.2450, L100.0500, L501.4020 #### [facility] [address] [place], [address] Potassium [Moles/Vol] 4.5 mmol/L Normal 3.3-5.1 [facility] Comment on above: Order Comment: 135 Performed By: #### L 500.4050, L501.2450, L100.0500, L501.4020 #### [facility] [address] [place], [address] Sodium [Moles/Vol] 130 mmol/L Low 133-145 [facility] Comment on above: Order Comment: 135 Performed By: #### L 500.4050, L501.2450, L100.0500, L501.4020 #### [facility] [address] [place], [address] Urea nitrogen [Mass/Vol] 14 mg/dL Normal 4-19 [facility] Comment on above: Order Comment: 135 Performed By: #### L 500.4050, L501.2450, L100.0500, L501.4020 #### [facility] [address] [place], [address] Basophil percentageOrdered B y: Aleksandar Jones on 03-28-2025 Basophils/100 WBC (Bld) 0.8 % 0-1 W [facility] Bilirubin Test strip Ql (U)O rdered By: Aleksandar Jones on 03-28-2025 Bilirubin Ql (U) Negative Negative [facility] Blood manual differential co mment interpretation (narrative result)Ordered By: Aleksandar Jones on 03-28-2025 Manual differential comment [place] (Bld) [Interp] SCANNED [facility] CBC-Complete Blood Cnt No Di ffon 03-28-2025 Erythrocyte distribution width (RBC) [Ratio] 13.8 % Normal 11.6-14.6 [facility] Comment on above: Order Comment: 135 Performed By: #### L 500.4050, L501.2450, L100.0500, L501.4020 #### [facility] [address] [place], [address] Hematocrit (Bld) [Volume fraction] 38.1 % Normal 37-47 [facility] Comment on above: Order Comment: 135 Performed By: #### L 500.4050, L501.2450, L100.0500, L501.4020 #### [facility] [address] [place], [address] Hemoglobin (Bld) [Mass/Vol] 12.8 g/dL Normal 12.0-15.0 [facility] Comment on above: Order Comment: 135 Performed By: #### L 500.4050, L501.2450, L100.0500, L501.4020 #### [facility] [address] [place], [address] MCH (RBC) [Entitic mass] 29.3 pg Normal 27.0-32.0 [facility] Comment on above: Order Comment: 135 Performed By: #### L 500.4050, L501.2450, L100.0500, L501.4020 #### [facility] [address] [place], [address] MCHC (RBC) [Mass/Vol] 33.6 g/dL Normal 32-36 [facility] Comment on above: Order Comment: 135 Performed By: #### L 500.4050, L501.2450, L100.0500, L501.4020 #### [facility] [address] [place], [address] MCV (RBC) [Entitic vol] 87.2 fL Normal 81-99 [facility] Comment on above: Order Comment: 135 Performed By: #### L 500.4050, L501.2450, L100.0500, L501.4020 #### [facility] [address] [place], [address] Platelet mean volume (Bld) [Entitic vol] 11.2 fL Normal 6.2-12.0 [facility] Comment on above: Order Comment: 135 Performed By: #### L 500.4050, L501.2450, L100.0500, L501.4020 #### [facility] [address] [place], [address] Platelets (Bld) [#/Vol] 198 10*3/uL Normal 150-450 [facility] Comment on above: Order Comment: 135 Performed By: #### L 500.4050, L501.2450, L100.0500, L501.4020 #### [facility] [address] [place], [address] RBC (Bld) [#/Vol] 4.37 10*6/uL Normal 4.2-5.4 [facility] Comment on above: Order Comment: 135 Performed By: #### L 500.4050, L501.2450, L100.0500, L501.4020 #### [facility] [address] [place], [address] RDW SD 43.8 fl Normal 35.1-43.9 [facility] Comment on above: Order Comment: 135 Performed By: #### L 500.4050, L501.2450, L100.0500, L501.4020 #### [facility] [address] [place], [address] WBC (Bld) [#/Vol] 8.5 10*3/uL Normal 4.4-11.0 [facility] Comment on above: Order Comment: 135 Performed By: #### L 500.4050, L501.2450, L100.0500, L501.4020 #### [facility] [address] [place], [address] Carbon dioxide, total [Moles /volume] in Central venous bloodOrdered By: Aleksandar Jones on 03-28-2025 CO2 [Moles/Vol] 21.0 mmol/L 21.0-32.0 [facility] Chloride assayOrdered By: Julio Cesar gail Robert on 03-28-2025 Chloride [Moles/Vol] 96 mmol/L Low 98-108 [facility] Eosinophil %Ordered By: Jeancarlos maris Robert on 03-28-2025 Eosinophils/100 WBC (Bld) 0.4 % 0-5 [facility] Erythrocyte distribution wid th ratioOrdered By: Aleksandar Jones on 03-28-2025 Erythrocyte distribution width (RBC) [Ratio] 13.8 % 11.6-14.6 [facility] Erythrocyte distribution wid th standard deviationOrdered By: Aleksandar Jones on 03-28-2025 Erythrocyte distribution width (RBC) [Ratio] 43.8 fl 35.1-43.9 [facility] Glomerular filtration rate ( GFR) estimation/1.73 sq m using serum, plasma, or whole bOrdered By: Aleksandar Jones on 03-28-2025 GFR/1.73 sq M.predicted among non-blacks MDRD (S/P/Bld) [Vol rate/Area] 108 mL/min/{1.73_m2} >60 [facility] Comment on above: mL/min/1.73m2 CKD-EP I Creatinine Equation (2020) Hematocrit Auto (Bld) [Volum e fraction]Ordered By: Aleksandar Jones on 03-28-2025 Hematocrit (Bld) [Volume fraction] 38.1 % 37-47 [facility] Hemoglobin measurementOrdere d By: Aleksandar Jones on 03-28-2025 Hemoglobin (Bld) [Mass/Vol] 12.8 g/dL 12.0-15.0 [facility] Immature granulocyte percent ageOrdered By: Aleksandar Jones 03-28-2025 Immature granulocytes/100 WBC (Bld) 0.600 % 0.0-0.9 [facility] Comment on above: IG% - Immature Granu locytes (promyelocytes, myelocytes and metamyelocytes) > 1% indicates that a LEFT SHIFT is Present. Ketones Test strip Ql (U)Ord ered By: Aleksandar Jones on 03-28-2025 Ketones Ql (U) Negative Negative [facility] Lymphocyte %Ordered By: Jeancarlos Jones on 03-28-2025 Lymphocytes/100 WBC (Bld) 22.2 % 19-41 [facility] MCV (mean corpuscular volume ) determinationOrdered By: Aleksandar Jones on 03-28-2025 MCV (RBC) [Entitic vol] 87.2 fL 81-99 [facility] Mean corpuscular hemoglobin (MCH) determinationOrdered By: Aleksandar Jones on 03-28-2025 MCH (RBC) [Entitic mass] 29.3 pg 27.0-32.0 [facility] Mean corpuscular hemoglobin concentration (MCHC) determinationOrdered By: Aleksandar Jones on 03-28-2025 MCHC (RBC) [Mass/Vol] 33.6 g/dL 32-36 [facility] Mean platelet volume determi nationOrdered By: Aleksandar Jones on 03-28-2025 Platelet mean volume (Bld) [Entitic vol] 11.2 fL 6.2-12.0 [facility] Microscopic analysis of urin e for red blood cells (RBC)Ordered By: Aleksandar Jones on 03-28-2025 Microscopic analysis of urine for red blood cells (RBC) 0 SEEN /hpf 0-5 [facility] Monocyte percentageOrdered B y: Aleksandar Jones on 03-28-2025 Monocytes/100 WBC (Bld) 7.9 % 0-10 [facility] Mucus LM Ql (Urine sed)Order ed By: Aleksandar Jones on 03-28-2025 Mucus Ql (Urine sed) 0 SEEN /hpf [facility] Neutrophil %Ordered By: Jeancarlos Jones on 03-28-2025 Neutrophils/100 WBC (Bld) 68.1 % 47-70 [facility] Nitrite Test strip Ql (U)Ord ered By: Aleksandar Jones on 03-28-2025 Nitrite Ql (U) Negative Negative [facility] Platelet countOrdered By: Julio Cesar Jones on 03-28-2025 Platelets (Bld) [#/Vol] 198 10*3/uL 150-450 [facility] Potassium measurement (mass/ volume)Ordered By: Aleksandar Jones on 03-28-2025 Potassium (Unsp spec) [Mass/Vol] 4.5 mmol/L 3.3-5.1 [facility] Protein Test strip Ql (U)Ord ered By: Aleksandar Jones on 03-28-2025 Protein Ql (U) 15 mg/dl High Negative [facility] RBC Auto (Bld) [#/Vol]Ordere d By: Aleksandar Jones on 03-28-2025 RBC (Bld) [#/Vol] 4.37 10*6/uL 4.2-5.4 [facility] Serum creatinine measurement (mass/volume)Ordered By: Aleksandar Jones on 03-28-2025 Creatinine [Mass/Vol] 0.48 mg/dL Low 0.70-1.20 [facility] Serum glucose measurement (m ass/volume)Ordered By: Aleksandar Jones on 03-28-2025 Glucose [Mass/Vol] 169 mg/dL High 70-99 [facility] Serum or plasma calcium lawrence urement (mass/volume)Ordered By: Aleksandar Jones on 03-28-2025 Calcium [Mass/Vol] 9.2 mg/dL 7.6-11.0 [facility] Serum or plasma urea nitroge n measurement (mass/volume)Ordered By: Aleksandar Jones on 03-28-2025 Urea nitrogen [Mass/Vol] 14 mg/dL 4-19 [facility] Sodium levelOrdered By: Jeancarlos Jones on 03-28-2025 Sodium [Moles/Vol] 130 mmol/L Low 133-145 [facility] Squamous epithelial cells de tection in urine sediment by light microscopyOrdered By: Aleksandar Jones on 03-28-2025 Epithelial cells.squamous LM Ql (Urine sed) 0 SEEN /hpf 5-10 [facility] Transitional cells detection in urine sediment by light microscopyOrdered By: Aleksandar Jones on 03-28-2025 Transitional cells LM Ql (Urine sed) 0-5 SEEN /hpf 0-5 [facility] Urine clarityOrdered By: Guillaume Jones on 03-28-2025 Clarity (U) Clear Clear [facility] Urine color determinationOrd ered By: Aleksandar Jones on 03-28-2025 Color (U) Yellow Yellow [facility] Urine cultureOrdered By: Guillaume Jones on 03-28-2025 Bacteria identified Cx Nom (U) Positive Abnormal [facility] Urine glucose detectionOrder ed By: Aleksandar Jones on 03-28-2025 Glucose Ql (U) 1000 mg/dl High Normal [facility] Urine leukocyte esterase det ection by dipstickOrdered By: Aleksandar Jones on 03-28-2025 Leukocyte esterase Test strip Ql (U) Negative Negative [facility] Urine pHOrdered By: Aleksandar Jones on 03-28-2025 pH (U) 6.5 [pH] 5.0 - 8.0 [facility] Urine sediment bacteria coun t by microscopy (number/high power field)Ordered By: Aleksandar Jones on 03-28-2025 Bacteria LM.HPF (Urine sed) [#/Area] 0 /[HPF] None Seen [facility] Urine specific gravity measu rementOrdered By: Aleksandar Jones on 03-28-2025 Specific gravity (U) [Rel density] 1.010 1.002-1.030 [facility] Urine urobilinogen measureme ntOrdered By: Aleksandar Jones on 03-28-2025 Urobilinogen Ql (U) Normal mg/dl Normal [facility] White blood cell (WBC) count Ordered By: Aleksandar Jones on 03-28-2025 WBC (Bld) [#/Vol] 8.5 10*3/uL 4.4-11.0 [facility] White blood cell countOrdere d By: Aleksandar Jones on 03-28-2025 White blood cell count 0 SEEN /hpf 0-5 [facility] CNPNon 03-14-2025 CNPN Normal [facility] Absolute lymphocyte countOrd ered By: [facility] on 03-01-2025 Lymphocytes Auto (Unsp spec) [#/Vol] 1.91 10*3/uL 0.83-4.51 [facility] Absolute neutrophil countOrd ered By: [facility] on 03-01-2025 Neutrophils (Bld) [#/Vol] 9.8 10*3/uL High 2.0-7.7 [facility] Automated lymphocyte count a s percentage of total leukocytesOrdered By: [facility] on 03-01-2025 Lymphocytes/100 WBC Auto (Unsp spec) 15.0 % Low 19-41 [facility] Basophil percentageOrdered B y: [facility] on 03-01-2025 Basophils/100 WBC (Bld) 0.4 % 0-1 [facility] CBC W/Diff, Automatedon 02-11-2024 Absolute Lymph 1.91 X10 3/uL Normal 0.83-4.51 [facility] Comment on above: Performed By: #### L 500.2500, L100.0100 #### [facility] [address] [place], [address] Absolute Neut 9.8 X10 3/uL High 2.0-7.7 [facility] Comment on above: Performed By: #### L 500.2500, L100.0100 #### [facility] [address] [place], [address] Basophils/100 WBC (Bld) 0.4 % Normal 0-1 [facility] Comment on above: Performed By: #### L 500.2500, L100.0100 #### [facility] [address] [place], [address] Eosinophils/100 WBC (Bld) 0.2 % Normal 0-5 [facility] Comment on above: Performed By: #### L 500.2500, L100.0100 #### [facility] [address] [place], [address] Erythrocyte distribution width (RBC) [Ratio] 14.1 % Normal 11.6-14.6 [facility] Comment on above: Performed By: #### L 500.2500, L100.0100 #### [facility] [address] [place], [address] Hematocrit (Bld) [Volume fraction] 39.9 % Normal 37-47 [facility] Comment on above: Performed By: #### L 500.2500, L100.0100 #### [facility] [address] [place], [address] Hemoglobin (Bld) [Mass/Vol] 13.4 g/dL Normal 12.0-15.0 [facility] Comment on above: Performed By: #### L 500.2500, L100.0100 #### [facility] [address] [place], [address] IG% 0.600 Normal 0.0-0.9 [facility] Comment on above: Result Comment: IG% - Immature Granulocytes (promyelocytes, myelocytes and metamyelocytes) > 1% indicates that a LEFT SHIFT is Present. Performed By: #### L 500.2500, L100.0100 #### [facility] [address] [place], [address] Lymphocytes/100 WBC (Bld) 15.0 % Low 19-41 [facility] Comment on above: Performed By: #### L 500.2500, L100.0100 #### [facility] [address] [place], [address] MCH (RBC) [Entitic mass] 29.5 pg Normal 27.0-32.0 [facility] Comment on above: Performed By: #### L 500.2500, L100.0100 #### [facility] [address] [place], [address] MCHC (RBC) [Mass/Vol] 33.6 g/dL Normal 32-36 [facility] Comment on above: Performed By: #### L 500.2500, L100.0100 #### [facility] [address] [place], [address] MCV (RBC) [Entitic vol] 87.7 fL Normal 81-99 [facility] Comment on above: Performed By: #### L 500.2500, L100.0100 #### [facility] [address] [place], [address] Monocytes/100 WBC (Bld) 6.6 % Normal 0-10 [facility] Comment on above: Performed By: #### L 500.2500, L100.0100 #### [facility] [address] [place], [address] Neutrophils/100 WBC (Bld) 77.2 % High 47-70 [facility] Comment on above: Performed By: #### L 500.2500, L100.0100 #### [facility] [address] [place], [address] Nucleated RBC (Bld) [#/Vol] 0 10*3/uL Normal 0-5 [facility] Comment on above: Performed By: #### L 500.2500, L100.0100 #### [facility] [address] [place], [address] Platelet mean volume (Bld) [Entitic vol] 10.9 fL Normal 6.2-12.0 [facility] Comment on above: Performed By: #### L 500.2500, L100.0100 #### [facility] [address] [place], [address] Platelets (Bld) [#/Vol] 212 10*3/uL Normal 150-450 [facility] Comment on above: Performed By: #### L 500.2500, L100.0100 #### [facility] [address] [place], [address] RBC (Bld) [#/Vol] 4.55 10*6/uL Normal 4.2-5.4 [facility] Comment on above: Performed By: #### L 500.2500, L100.0100 #### [facility] [address] [place], [address] RDW SD 44.8 fl High 35.1-43.9 [facility] Comment on above: Performed By: #### L 500.2500, L100.0100 #### [facility] [address] [place], [address] WBC (Bld) [#/Vol] 12.7 10*3/uL High 4.4-11.0 [facility] Comment on above: Performed By: #### L 500.2500, L100.0100 #### [facility] [address] [place], [place], [address] CNPNon 03-01-2025 CNPN Normal [facility] Eosinophil percentageOrdered By: [facility] on 03-01-2025 Eosinophils/100 WBC (Bld) 0.2 % 0-5 [facility] Erythrocyte distribution wid th ratioOrdered By: [facility] on 03-01-2025 Erythrocyte distribution width (RBC) [Ratio] 14.1 % 11.6-14.6 [facility] Erythrocyte distribution wid th standard deviationOrdered By: [facility] on 03-01-2025 Erythrocyte distribution width (RBC) [Ratio] 44.8 fl High 35.1-43.9 [facility] Hematocrit Auto (Bld) [Volum e fraction]Ordered By: [facility] on 03-01-2025 Hematocrit (Bld) [Volume fraction] 39.9 % 37-47 [facility] Hemoglobin measurementOrdere d By: [facility] on 03-01-2025 Hemoglobin (Bld) [Mass/Vol] 13.4 g/dL 12.0-15.0 [facility] Immature granulocytes/100 WB C Auto (Bld)Ordered By: [facility] on 03-01-2025 Immature granulocytes/100 WBC (Bld) 0.600 % 0.0-0.9 [facility] Comment on above: IG% - Immature Granu locytes (promyelocytes, myelocytes and metamyelocytes) > 1% indicates that a LEFT SHIFT is Present. MCV (mean corpuscular volume ) determinationOrdered By: [facility] on 03-01-2025 MCV (RBC) [Entitic vol] 87.7 fL 81-99 [facility] Mean corpuscular hemoglobin (MCH) determinationOrdered By: [facility] on 03-01-2025 MCH (RBC) [Entitic mass] 29.5 pg 27.0-32.0 [facility] Mean corpuscular hemoglobin concentration (MCHC) determinationOrdered By: [facility] on 03-01-2025 MCHC (RBC) [Mass/Vol] 33.6 g/dL 32-36 [facility] Mean platelet volume determi nationOrdered By: [facility] on 03-01-2025 Platelet mean volume (Bld) [Entitic vol] 10.9 fL 6.2-12.0 [facility] Monocyte percentageOrdered B y: [facility] on 03-01-2025 Monocytes/100 WBC (Bld) 6.6 % 0-10 [facility] Neutrophil percentageOrdered By: [facility] on 03-01-2025 Neutrophils/100 WBC (Bld) 77.2 % High 47-70 [facility] Nucleated red blood cell per centageOrdered By: [facility] on 03-01-2025 Nucleated RBC/100 WBC (Bld) [Ratio] 0 % 0-5 [facility] Platelet countOrdered By: [facility] on 03-01-2025 Platelets (Bld) [#/Vol] 212 10*3/uL 150-450 [facility] RBC Auto (Bld) [#/Vol]Ordere d By: [facility] on 03-01-2025 RBC (Bld) [#/Vol] 4.55 10*6/uL 4.2-5.4 [facility] White blood cell (WBC) count Ordered By: [facility] on 03-01-2025 WBC (Bld) [#/Vol] 12.7 10*3/uL High 4.4-11.0 [facility]2025 [facility] 02-10-2025 [facility] Normal [facility] Absolute lymphocyte countOrd ered By: Lorraine Springer on 02-02-2025 Lymphocytes Auto (Unsp spec) [#/Vol] 2.80 10*3/uL 0.83-4.51 [facility] Absolute neutrophil countOrd ered By: Lorraine Springer on 02-02-2025 Neutrophils (Bld) [#/Vol] 6.4 10*3/uL 2.0-7.7 [facility] Automated lymphocyte count a s percentage of total leukocytesOrdered By: Lorraine Springer on 02-02-2025 Lymphocytes/100 WBC Auto (Unsp spec) 27.4 % 19-41 [facility] Basophil percentageOrdered B y: Lorraine Springer on 02-02-2025 Basophils/100 WBC (Bld) 0.5 % 0-1 [facility] CBC W/Diff, Automatedon 01-12 REACTIVE LYMPH RARE Normal [facility] Comment on above: Performed By: #### L 500.2500, L100.0100 #### [facility] [address] [place], [address] Eosinophil percentageOrdered By: Lorraine Springer on 02-02-2025 Eosinophils/100 WBC (Bld) 0.4 % 0-5 [facility] Erythrocyte distribution wid th ratioOrdered By: Lorraine Springer on 02-02-2025 Erythrocyte distribution width (RBC) [Ratio] 13.2 % 11.6-14.6 [facility] Erythrocyte distribution wid th standard deviationOrdered By: Lorraine Springer on 02-02-2025 Erythrocyte distribution width (RBC) [Ratio] 41.5 fl 35.1-43.9 [facility] Hematocrit Auto (Bld) [Volum e fraction]Ordered By: Lorraine Springer on 02-02-2025 Hematocrit (Bld) [Volume fraction] 38.7 % 37-47 [facility] Hemoglobin measurementOrdere d By: Lorraine Springer on 02-02-2025 Hemoglobin (Bld) [Mass/Vol] 12.9 g/dL 12.0-15.0 [facility] Immature granulocytes/100 WB C Auto (Bld)Ordered By: Lorraine Springer on 02-02-2025 Immature granulocytes/100 WBC (Bld) 0.700 % 0.0-0.9 [facility] Comment on above: IG% - Immature Granu locytes (promyelocytes, myelocytes and metamyelocytes) > 1% indicates that a LEFT SHIFT is Present. MCV (mean corpuscular volume ) determinationOrdered By: Lorraine Springer on 02-02-2025 MCV (RBC) [Entitic vol] 86.6 fL 81-99 [facility] Mean corpuscular hemoglobin (MCH) determinationOrdered By: Lorraine Springer on 02-02-2025 MCH (RBC) [Entitic mass] 28.9 pg 27.0-32.0 [facility] Mean corpuscular hemoglobin concentration (MCHC) determinationOrdered By: Lorraine Springer on 02-02-2025 MCHC (RBC) [Mass/Vol] 33.3 g/dL 32-36 [facility] Mean platelet volume determi nationOrdered By: Lorraine Springer on 02-02-2025 Platelet mean volume (Bld) [Entitic vol] 10.3 fL 6.2-12.0 [facility] Monocyte percentageOrdered B y: Lorraine Springer on 02-02-2025 Monocytes/100 WBC (Bld) 8.8 % 0-10 [facility] Neutrophil percentageOrdered By: Lorraine Springer on 02-02-2025 Neutrophils/100 WBC (Bld) 62.2 % 47-70 [facility] Nucleated red blood cell per centageOrdered By: Lorraine Springer on 02-02-2025 Nucleated RBC/100 WBC (Bld) [Ratio] 0 % 0-5 [facility] Platelet countOrdered By: Anastacia Springer on 02-02-2025 Platelets (Bld) [#/Vol] 213 10*3/uL 150-450 [facility] RBC Auto (Bld) [#/Vol]Ordere d By: Lorraine Springer on 02-02-2025 RBC (Bld) [#/Vol] 4.47 10*6/uL 4.2-5.4 [facility] White blood cell (WBC) count Ordered By: Lorraine Springer on 02-02-2025 WBC (Bld) [#/Vol] 10.2 10*3/uL 4.4-11.0 [facility] CNPNon 01-31-2025 CNPN Normal [facility] CNPNon 01-27-2025 CNPN Normal [facility] CNPNon 01-21-2025 CNPN Normal [facility] FRANNY SCREENING W TOMOon 01-19 FRANNY SCREENING W [place] Normal [facility] No Panel Informationon 01-18 IMPRESSION: Hepatic steatosis. Prior cholecystectomy. Indian Nanny: MILDRED Transcribe Date/Time: Jan 18 2025 11:43A Dictated by : SABRA BYRD MD This examination was interpreted and the report reviewed and electronically signed by: SABRA BYRD MD on Jan 18 2025 11:44AM [facility] DIVISION OF RADIOLOGY Radiology Study observation (narrative) [facility] No Panel InformationOrdered By: Ccf Provider on 01-18-[address] [facility] US ABD RIGHT UPPER QUADRANTo n 01-18-2025 US ABD RIGHT UPPER QUADRANT Normal [facility] US ABD SPLEEN - NBon 025 * * *Final Report* * * DATE OF EXAM: Jan 18 2025 10:29AM [facility] 1232 - US ABD SPLEEN -NB / [...] dimension. Ascites: None. DIVISION OF RADIOLOGY Provider, [facility] - 01/18/2025 * * *Final [...] None. IMPRESSION IMPRESSION: Hepatic steatosis. Prior cholecystectomy. Indian Nanny: MILDRED Transcribe Date/Time: Jan 18 2025 11:43A Dictated by : SABRA BYRD MD This examination was interpreted and the report reviewed and electronically signed by: SABRA BYRD MD on Jan 18 2025 11:44AM [facility] US ABD SPLEEN -NBon 01-19-20 25 US ABD SPLEEN -NB Normal [facility] US Abdomen RUQon 01-18-2025 * * *Final [...] dimension. Ascites: None. DIVISION OF RADIOLOGY [facility], [facility] * * *Final [...] None. IMPRESSION IMPRESSION: Hepatic steatosis. Prior cholecystectomy. Indian Nanny: MILDRED Transcribe Date/Time: Jan 18 2025 11:43A Dictated by : SABRA BYRD MD This examination was interpreted and the report reviewed and electronically signed by: SABRA BYRD MD on Jan 18 2025 11:44AM EST [facility] CNOVon 01-12-2025 CNOV Normal [facility] CNPNon 01-12-2025 CNPN Normal [facility] HBV DNA Qn (S)on 01-12-2025 HBV DNA LUIS M+probe Ql Not detected Not detected [facility] Interpretation and review of laboratory results Normal [facility] melanie HBV is an in v [...] EDTA plasma and 2.4 IU/mL in serum. [facility] HBV core Ab Ql (S)on 025 Interpretation and review of laboratory results Normal [facility] HBV core IgM Ql (S)on 2024 Interpretation and review of laboratory results Abnormal [facility] HBV surface Ab Ql (S)on HBV surface Ab Qn (S) mIU/mL [facility] Comment on above: <8 mIU/mL: No serolo gical evidence of immunity to Hepatitis B Virus. >/= 8 to <12 mIU/mL: No serological evidence of immunity to Hepatitis B Virus. >/= 12 mIU/mL: Consistent with serological evidence of immunity to Hepatitis B Virus. [facility] HBV surface Ag Ql (S)on Interpretation and review of laboratory results Normal [facility] HEPATITIS B CORE ANTIBODY IG 01-12-2025 HBV core IgM Ql (S) Positive Abnormal Negative [facility] Comment on above: The result suggests recent acute infection with Hepatitis B virus. Non-specific reactivity is not uncommon with this test. HBV core IgM antibody may also remain elevated for extended periods after an acute bout of infection. Clinical correlation required. HEPATITIS B CORE ANTIBODY TO Joslyn 01-12-2025 HBV core Ab Ql (S) Negative Negative [facility] Comment on above: No evidence of curre nt or past infection with Hepatitis B virus. Should recent infection be suspected, repeat testing may be considered 3-4 weeks after this draw. HEPATITIS B SURFACE ANTIBODY on 01-12-2025 HBV surface Ab Ql (S) Negative [facility] Comment on above: No serological evide nce of immunity to Hepatitis B Virus. HEPATITIS B SURFACE ANTIGENo n 01-12-2025 HBV surface Ag Ql (S) Negative Negative [facility] Osmolality Uron 01-12-2025 Osmolality (U) [Osmolality] 131 mosm/kg Normal 50-1200 [facility] Comment on above: Order Comment: Speci men Type: URINE SPECIMENOrdering Facility: [facility] Address: [address] [place] [address] Performed By: #### 2 695-5 ####[facility] LABIA [id number] [place] [address] [place] Sodium ?Tm Ur-sCncon 025 Sodium Unsp time (U) [Moles/Vol] 32 mmol/L Normal 14-216 [facility] Comment on above: Order Comment: Speci men Type: URINE SPECIMENOrdering Facility: [facility] Address: [address] [place] [address] Performed By: #### 3 5678-2 ####[facility] LABCLIA [id number] [address] [place] [address] [place] Comprehensive metabolic 2000 panelon 01-11-2025 Albumin [Mass/Vol] 4.7 g/dL Normal 3.9-4.9 [facility] Comment on above: Order Comment: Speci men Type: BLOOD SPECIMENOrdering Facility: [facility] Address: [address] [place] [address] Performed By: #### 2 2322-2, 22258-1, 23962-6, 5195-3, 27490-6 ####[facility] LABIA [id number] [address] [address] [place] ALP [Catalytic activity/Vol] 128 U/L High 34-123 [facility] Comment on above: Order Comment: Speci men Type: BLOOD SPECIMENOrdering Facility: [facility] Address: [address] [place] [address] Performed By: #### 2 2322-2, 82264-0, 54415-5, 5195-3, 77820-6 ####[facility] LABIA [id number] [address] [address] [place] ALT [Catalytic activity/Vol] 51 U/L High 7-38 [facility] Comment on above: Order Comment: Speci men Type: BLOOD SPECIMENOrdering Facility: [facility] Address: [address] [place] [address] Performed By: #### 2 2322-2, 04826-9, 08325-0, 5195-3, 73649-2 ####[facility] LABCLIA [id number] [address] [address] [place] Anion gap [Moles/Vol] 19 mmol/L High 8-15 [facility] Comment on above: Order Comment: Speci men Type: BLOOD SPECIMENOrdering Facility: [facility] Address: [address] [place] [address] Performed By: #### 2 2322-2, 64386-0, 84459-8, 5-3, 74867-5 ####[facility] LABCLIA [id number] [facility] [address] [address] [place] AST [Catalytic activity/Vol] 23 U/L Normal 13-35 [facility] Comment on above: Order Comment: Speci men Type: BLOOD SPECIMENOrdering Facility: [facility] Address: [address] [place], [place] [address] Performed By: #### 2 2322-2, 73447-8, 51372-6, 5194-3, 24599-8 ####[facility] LABCLIA [id number] [address] [address] [place] Bilirubin [Mass/Vol] 0.3 mg/dL Normal 0.2-1.3 [facility] Comment on above: Order Comment: Speci men Type: BLOOD SPECIMENOrdering Facility: [facility] Address: [address] [place], [place] [address] Performed By: #### 2 2322-2, 56058-5, 64570-2, 5194-3, 55649-9 ####[facility] LABCLIA [id number] [address] [address] [place] Calcium [Mass/Vol] 9.4 mg/dL Normal 8.5-10.2 [facility] Comment on above: Order Comment: Speci men Type: BLOOD SPECIMENOrdering Facility: [facility] Address: [address] [place], [place] [address] Performed By: #### 2 2322-2, 66115-7, 06958-0, 5194-3, 68192-9 ####[facility] LABIA [id number] [address] [address] [place] Chloride [Moles/Vol] 93 mmol/L Low 98-107 [facility] Comment on above: Order Comment: Speci men Type: BLOOD SPECIMENOrdering Facility: [facility] Address: [address] [place], [place] [address] Performed By: #### 2 2322-2, 60500-7, 30080-8, 5195-3, 52851-0 ####[facility] LABIA [id number] [address] [address] [place] CO2 [Moles/Vol] 18 mmol/L Low 22-30 [facility] Comment on above: Order Comment: Speci men Type: BLOOD SPECIMENOrdering Facility: [facility] Address: [address] [place], [place] [address] Performed By: #### 2 2322-2, 75533-7, 78045-3, 5-3, 20446-2 ####[facility] [id number] [address] [address] [place] Creatinine [Mass/Vol] 0.40 mg/dL Low 0.58-0.96 [facility] Comment on above: Order Comment: Speci men Type: BLOOD SPECIMENOrdering Facility: [facility] Address: [address] [place] [address] Performed By: #### 2 2322-2, 92563-8, 25985-0, 5-3, 63947-4 ####[facility] [id number] [place] [id number] [place] Creatinine and Glomerular filtration rate.predicted panel (S/P/Bld) 113 mL/min/1.73m??? Normal >=60 [facility] Comment on above: Order Comment: Speci men Type: BLOOD SPECIMENOrdering Facility: [facility] Address: [address] [place] [address] Result Comment: Gia mated Glomerular Filtration Rate [...] reflect actual GFR. Performed By: #### 2 2322-2, 44953-6, 65119-9, 5195-3, 90923-6 ####[facility] LABCLIA [id number] [address] [address] [place] Glucose [Mass/Vol] 155 mg/dL High 74-99 [facility] Comment on above: Order Comment: Speci men Type: BLOOD SPECIMENOrdering Facility: [facility] Address: [address] [place] [address] Result Comment: The [place] Diabetes Association (ADA) provides guidance for cutoff [...] Standards of Medical Care in Diabetes 2016, [place] [employer]. Diabetes Care. 2016.39(Suppl 1). Performed By: #### 2 2322-2, 02631-8, 28374-0, 5-3, 26588-3 ####[facility] LABCLIA [id number] [address] [address] [place] Potassium [Moles/Vol] 4.6 mmol/L Normal 3.7-5.1 [facility] Comment on above: Order Comment: Speci men Type: BLOOD SPECIMENOrdering Facility: [facility] Address: [address] [place] [address] Performed By: #### 2 2322-2, 08921-1, 91774-1, 5-3, 67337-7 ####[facility] LABCLIA [id number] [address] [address] [place] Protein [Mass/Vol] 7.4 g/dL Normal 6.3-8.0 [facility] Comment on above: Order Comment: Speci men Type: BLOOD SPECIMENOrdering Facility: [facility] Address: [address] [place] [address] Performed By: #### 2 2322-2, 87999-0, 02050-3, 5195-3, 02510-9 ####[facility] LABCLIA [id number] [address] [address] [place] Sodium [Moles/Vol] 130 mmol/L Low 136-144 [facility] Comment on above: Order Comment: Speci men Type: BLOOD SPECIMENOrdering Facility: [facility] Address: [address] [place] [address] Performed By: #### 2 2322-2, 85889-2, 82774-1, 5-3, 85712-1 ####[facility] LABIA [id number] [place] [address] [place] Urea nitrogen [Mass/Vol] 7 mg/dL Normal 7-21 [facility] Comment on above: Order Comment: Speci men Type: BLOOD SPECIMENOrdering Facility: [facility] Address: [address] [place] [address] Performed By: #### 2 2322-2, 67879-4, 23204-6, 5195-3, 65607-2 ####[facility] LABIA [id number] [place] [address] [place] HBV DNA Qn (S)on 01-11-2025 HBV DNA LUIS M+probe Ql Not detected Normal Not detected [facility] Comment on above: Order Comment: Speci men Type: BLOOD SPECIMENOrdering Facility: [facility] Address: [address] [place] [address] Performed By: #### 1 1258-1 ####[facility] LABCLIA [id number] [address] [address] [place] HBV core Ab Ser Qlon 025 HBV core Ab Ql (S) Negative Normal Negative [facility] Comment on above: Order Comment: Rand gonzalez Type: BLOOD SPECIMENOrdering Facility: [facility] Address: [address] [place] [address] Result Comment: No e vidence of current or past infection with Hepatitis B virus. Should recent infection be suspected, repeat testing may be considered 3-4 weeks after this draw. Performed By: #### 2 2322-2, 43075-5, 55187-9, 5-3, 26287-8 ####[facility] LABCLIA [id number] [place] [id number] [place] HBV core IgM Ser Qlon 2024 HBV core IgM Ql (S) Positive Abnormal Negative [facility] Comment on above: Order Comment: Rand gonzalez Type: BLOOD SPECIMENOrdering Facility: [facility] Address: [address] [place] [address] Result Comment: The result suggests recent acute infection with Hepatitis B virus. Non-specific reactivity is not uncommon with this test. HBV core IgM antibody may also remain elevated for extended periods after an acute bout of infection. Clinical correlation required. Performed By: #### 2 2322-2, 88642-2, 14153-5, 5194-3, 60093-5 ####[facility] LABCLIA [id number] [place] [id number] [place] HBV surface Ab Ql (S)on HBV surface Ab Qn (S) <8.00 Normal [facility] Comment on above: Order Comment: Rand gonzalez Type: BLOOD SPECIMENOrdering Facility: [facility] Address: [address] [place] [address] Result Comment: <8 m IU/mL: No serological evidence of immunity to Hepatitis B Virus.>/= 8 to <12 mIU/mL: No serological evidence of immunity to Hepatitis B Virus.>/= 12 mIU/mL: Consistent with serological evidence of immunity to Hepatitis B Virus. Performed By: #### 2 2322-2, 77433-5, 76285-5, 5-3, 99651-4 ####[facility] LABCLIA [id number] [place] [address] [place] HBV surface Ab Ser Qlon HBV surface Ab Ql (S) Negative Normal [facility] Comment on above: Order Comment: Speci men Type: BLOOD SPECIMENOrdering Facility: [facility] Address: [address] [place] [address] Result Comment: No s erological evidence of immunity to Hepatitis B Virus. Performed By: #### 2 2322-2, 64456-4, 78938-1, 5195-3, 30049-8 ####[facility] LABCLIA [id number] [place] [address] [place] HBV surface Ag Ser Qlon HBV surface Ag Ql (S) Negative Normal Negative [facility] Comment on above: Order Comment: Speci men Type: BLOOD SPECIMENOrdering Facility: [facility] Address: [address] [place] [address] Performed By: #### 2 2322-2, 05726-4, 25080-4, 5195-3, 40674-4 ####[facility] LABCLIA [id number] [place] [address] [place] CNPNon 01-05-2025 CNPN Normal [facility] Absolute lymphocyte countOrd ered By: Lorraine Springer on 01-04-2025 Lymphocytes Auto (Unsp spec) [#/Vol] 2.29 10*3/uL 0.83-4.51 [facility] Absolute neutrophil countOrd ered By: Lorraine Springer on 01-04-2025 Neutrophils (Bld) [#/Vol] 8.8 10*3/uL High 2.0-7.7 [facility] Automated lymphocyte count a s percentage of total leukocytesOrdered By: Lorraine Springer on 01-04-2025 Lymphocytes/100 WBC Auto (Unsp spec) 19.0 % 19-41 [facility] Basophil percentageOrdered B y: Lorraine Springer on 03-25-2025 Basophils/100 WBC (Bld) 0.3 % 0-1 [facility] CBC W/Diff, Automatedon 03-2 -2024 Absolute Lymph 2.29 X10 3/uL Normal 0.83-4.51 [facility] Comment on above: Performed By: #### L 500.2500, L100.0100 #### [facility] Laboratory [address] [place], [address] Absolute Neut 8.8 X10 3/uL High 2.0-7.7 [facility] Comment on above: Performed By: #### L 500.2500, L100.0100 #### [facility] [address] [place], [address] Basophils/100 WBC (Bld) 0.3 % Normal 0-1 [facility] Comment on above: Performed By: #### L 500.2500, L100.0100 #### [facility] [address] [place], [address] Eosinophils/100 WBC (Bld) 0.2 % Normal 0-5 [facility] Comment on above: Performed By: #### L 500.2500, L100.0100 #### [facility] [address] [place], [address] Erythrocyte distribution width (RBC) [Ratio] 13.9 % Normal 11.6-14.6 [facility] Comment on above: Performed By: #### L 500.2500, L100.0100 #### [facility] [address] [place], [address] Hematocrit (Bld) [Volume fraction] 39.5 % Normal 37-47 [facility] Comment on above: Performed By: #### L 500.2500, L100.0100 #### [facility] [address] [place], [address] Hemoglobin (Bld) [Mass/Vol] 13.1 g/dL Normal 12.0-15.0 [facility] Comment on above: Performed By: #### L 500.2500, L100.0100 #### [facility] [address] [place], [address] IG% 0.700 Normal 0.0-0.9 [facility] Comment on above: Result Comment: IG% - Immature Granulocytes (promyelocytes, myelocytes and metamyelocytes) > 1% indicates that a LEFT SHIFT is Present. Performed By: #### L 500.2500, L100.0100 #### [facility] [address] [place], [address] Lymphocytes/100 WBC (Bld) 19.0 % Normal 19-41 [facility] Comment on above: Performed By: #### L 500.2500, L100.0100 #### [facility] [address] [place], [address] MCH (RBC) [Entitic mass] 29.1 pg Normal 27.0-32.0 [facility] Comment on above: Performed By: #### L 500.2500, L100.0100 #### [facility] [address] [place], [address] MCHC (RBC) [Mass/Vol] 33.2 g/dL Normal 32-36 [facility] Comment on above: Performed By: #### L 500.2500, L100.0100 #### [facility] [address] [place], [address] MCV (RBC) [Entitic vol] 87.8 fL Normal 81-99 [facility] Comment on above: Performed By: #### L 500.2500, L100.0100 #### [facility] [address] [place], [address] Monocytes/100 WBC (Bld) 6.5 % Normal 0-10 [facility] Comment on above: Performed By: #### L 500.2500, L100.0100 #### [facility] [address] [place], [address] Neutrophils/100 WBC (Bld) 73.3 % High 47-70 [facility] Comment on above: Performed By: #### L 500.2500, L100.0100 #### [facility] [address] [place], [address] Nucleated RBC (Bld) [#/Vol] 0 10*3/uL Normal 0-5 [facility] Comment on above: Performed By: #### L 500.2500, L100.0100 #### [facility] [address] [place], [address] Platelet mean volume (Bld) [Entitic vol] 10.1 fL Normal 6.2-12.0 [facility] Comment on above: Performed By: #### L 500.2500, L100.0100 #### [facility] [address] [place], [address] Platelets (Bld) [#/Vol] 195 10*3/uL Normal 150-450 [facility] Comment on above: Performed By: #### L 500.2500, L100.0100 #### [facility] [address] [place], [address] RBC (Bld) [#/Vol] 4.50 10*6/uL Normal 4.2-5.4 [facility] Comment on above: Performed By: #### L 500.2500, L100.0100 #### [facility] [address] [place], [address] RDW SD 44.7 fl High 35.1-43.9 [facility] Comment on above: Performed By: #### L 500.2500, L100.0100 #### [facility] [address] [place], [address] WBC (Bld) [#/Vol] 12.1 10*3/uL High 4.4-11.0 [facility] Comment on above: Performed By: #### L 500.2500, L100.0100 #### [facility] [address] [place], [address] CNPNon 01-04-2025 CNPN Normal [facility] Eosinophil percentageOrdered By: Lorraine Springer on 01-04-2025 Eosinophils/100 WBC (Bld) 0.2 % 0-5 [facility] Erythrocyte distribution wid th ratioOrdered By: [facility] on 01-04-2025 Erythrocyte distribution width (RBC) [Ratio] 13.9 % 11.6-14.6 [facility] Erythrocyte distribution wid th standard deviationOrdered By: Lorraine Springer on 01-04-2025 Erythrocyte distribution width (RBC) [Entitic vol] 44.7 fL High 35.1-43.9 [facility] Erythrocyte distribution width (RBC) [Ratio] 44.7 fl High 35.1-43.9 [facility] Hematocrit Auto (Bld) [Volum e fraction]Ordered By: [facility] on 01-04-2025 Hematocrit (Bld) [Volume fraction] 39.5 % 37-47 [facility] Hemoglobin measurementOrdere d By: Lorraine Springer on 01-04-2025 Hemoglobin (Bld) [Mass/Vol] 13.1 g/dL 12.0-15.0 [facility] Immature granulocytes/100 WB C Auto (Bld)Ordered By: Lorraine Springer on 01-04-2025 Immature granulocytes/100 WBC (Bld) 0.700 % 0.0-0.9 [facility] Comment on above: IG% - Immature Granu locytes (promyelocytes, myelocytes and metamyelocytes) > 1% indicates that a LEFT SHIFT is Present. Lymphocytes Auto (Unsp spec) [#/Vol]Ordered By: Lorraine Springer on 01-04-2025 Lymphocytes (Bld) [#/Vol] 2.29 10*3/uL 0.83-4.51 [facility] Lymphocytes/100 WBC Auto (Un sp spec)Ordered By: Lorraine Springer on 01-04-2025 Lymphocytes/100 WBC (Bld) 19.0 % 19-41 [facility] MCV (mean corpuscular volume ) determinationOrdered By: Lorraine Springer on 01-04-2025 MCV (RBC) [Entitic vol] 87.8 fL 81-99 [facility] Mean corpuscular hemoglobin (MCH) determinationOrdered By: Lorraine Springer on 01-04-2025 MCH (RBC) [Entitic mass] 29.1 pg 27.0-32.0 [facility] Mean corpuscular hemoglobin concentration (MCHC) determinationOrdered By: Lorraine Springer on 01-04-2025 MCHC (RBC) [Mass/Vol] 33.2 g/dL 32-36 [facility] Mean platelet volume determi nationOrdered By: Lorraine Springer on 01-04-2025 Platelet mean volume (Bld) [Entitic vol] 10.1 fL 6.2-12.0 [facility] Monocyte percentageOrdered B y: Lorraine Springer on 01-04-2025 Monocytes/100 WBC (Bld) 6.5 % 0-10 [facility] Neutrophil percentageOrdered By: Lorraine Springer on 01-04-2025 Neutrophils/100 WBC (Bld) 73.3 % High 47-70 [facility] Nucleated red blood cell per centageOrdered By: Lorraine Springer on 01-04-2025 Nucleated RBC/100 WBC (Bld) [Ratio] 0 % 0-5 [facility] Platelet countOrdered By: Anastacia Springer on 01-04-2025 Platelets (Bld) [#/Vol] 195 10*3/uL 150-450 [facility] RBC Auto (Bld) [#/Vol]Ordere d By: Lorraine Springer on 01-04-2025 RBC (Bld) [#/Vol] 4.50 10*6/uL 4.2-5.4 [facility] White blood cell (WBC) count Ordered By: Lorraine Springer on 01-04-2025 WBC (Bld) [#/Vol] 12.1 10*3/uL High 4.4-11.0 [facility] Basic metabolic 2000 panelon 01-03-2025 Anion gap [Moles/Vol] 12 mmol/L Normal 8-15 [facility] Comment on above: Order Comment: Speci men Type: BLOOD SPECIMENOrdering Facility: [facility] Address: [address] [place], [place] [address] Performed By: #### 2 4321-2 ####[facility] LABCLIA [id number] [facility] AVENUEDESK [place] [id number] [place] Calcium [Mass/Vol] 9.4 mg/dL Normal 8.5-10.2 [facility] Comment on above: Order Comment: Speci men Type: BLOOD SPECIMENOrdering Facility: [facility] Address: [address] [place] [address] Performed By: #### 2 4321-2 ####[facility] LABCLIA [id number] [facility]D AVENUERANCHO SPRINGS MEDICAL CENTERK [place] [id number] [place] Chloride [Moles/Vol] 93 mmol/L Low 98-107 [facility] Comment on above: Order Comment: Speci men Type: BLOOD SPECIMENOrdering Facility: [facility] Address: [address] [place], [place] [address] Performed By: #### 2 4321-2 ####[facility] LABCLIA [id number] [facility]D AVENUERANCHO SPRINGS MEDICAL CENTERK [place] [id number] [place] CO2 [Moles/Vol] 21 mmol/L Low 22-30 [facility] Comment on above: Order Comment: Speci men Type: BLOOD SPECIMENOrdering Facility: [facility] Address: [address] [place] [address] Performed By: #### 2 4321-2 ####[facility] LABCLIA [id number] [facility] [place] [id number] [place] Creatinine [Mass/Vol] 0.46 mg/dL Low 0.58-0.96 [facility] Comment on above: Order Comment: Speci men Type: BLOOD SPECIMENOrdering Facility: [facility] Address: [address] [place] [address] Performed By: #### 2 4321-2 ####[facility] LABCLIA [id number] [place] [address] [place] Creatinine and Glomerular filtration rate.predicted panel (S/P/Bld) 109 mL/min/1.73m??? Normal >=60 [facility] Comment on above: Order Comment: Rand gonzalez Type: BLOOD SPECIMENOrdering Facility: [facility] Address: [address] [place] [address] Result Comment: Gia mated Glomerular Filtration Rate [...] actual GFR. Performed By: #### 2 4321-2 ####[facility] LABCLIA [id number] [place] [address] [place] Glucose [Mass/Vol] 142 mg/dL High 74-99 [facility] Comment on above: Order Comment: Rand gonzalez Type: BLOOD SPECIMENOrdering Facility: [facility] Address: [address] [place] [address] Result Comment: The [place] Diabetes Association (ADA) provides guidance for cutoff [...] Standards of Medical Care in Diabetes 2016, [place] [employer]. Diabetes Care. 2016.39(Suppl 1). Performed By: #### 2 4321-2 ####[facility] LABCLIA [id number] [place] [address] [place] Potassium [Moles/Vol] 4.6 mmol/L Normal 3.7-5.1 [facility] Comment on above: Order Comment: Speci men Type: BLOOD SPECIMENOrdering Facility: [facility] Address: [address] [place] [address] Performed By: #### 2 4321-2 ####[facility] LABCLIA [id number] [place] [address] [place] Sodium [Moles/Vol] 126 mmol/L Low 136-144 [facility] Comment on above: Order Comment: Speci men Type: BLOOD SPECIMENOrdering Facility: [facility] Address: [address] [place] [address] Performed By: #### 2 4321-2 ####[facility] LABCLIA [id number] [place] [address] [place] Urea nitrogen [Mass/Vol] 12 mg/dL Normal 7-21 [facility] Comment on above: Order Comment: Speci men Type: BLOOD SPECIMENOrdering Facility: [facility] Address: [address] [place] [address] Performed By: #### 2 4321-2 ####[facility] LABCLIA [id number] [place] [address] [place] CBC W Auto Differential pane l (Bld)on 01-03-2025 Basophils (Bld) [#/Vol] 0.06 10*3/uL Normal <0.11 [facility] Comment on above: Order Comment: Speci men Type: BLOOD SPECIMENOrdering Facility: [facility] Address: [address] [place] [address] Performed By: #### 5 7021-8 ####[facility] LABCLIA [id number] [place] [address] [place] Basophils/100 WBC (Bld) 0.6 % Normal C [facility] Comment on above: Order Comment: Speci men Type: BLOOD SPECIMENOrdering Facility: [facility] Address: [address] [place] [address] Performed By: #### 5 7021-8 ####[facility] LABCLIA [id number] [place] [address] [place] Differential cell count method Nom (Bld) Auto Normal [facility] Comment on above: Order Comment: Speci men Type: BLOOD SPECIMENOrdering Facility: [facility] Address: [address] [place] [address] Performed By: #### 5 7021-8 ####[facility] LABCLIA [id number] [place] [address] [place] Eosinophils (Bld) [#/Vol] 0.03 10*3/uL Normal <0.46 [facility] Comment on above: Order Comment: Speci men Type: BLOOD SPECIMENOrdering Facility: [facility] Address: [address] [place] [address] Performed By: #### 5 7021-8 ####[facility] LABCLIA [id number] [place] [address] [place] Eosinophils/100 WBC (Bld) 0.3 % Normal [facility] Comment on above: Order Comment: Speci men Type: BLOOD SPECIMENOrdering Facility: [facility] Address: [address] [place] [address] Performed By: #### 5 7021-8 ####[facility] LABCLIA [id number] [place] [address] [place] Erythrocyte distribution width (RBC) [Ratio] 14.2 % Normal 11.5-15.0 [facility] Comment on above: Order Comment: Speci men Type: BLOOD SPECIMENOrdering Facility: [facility] Address: [address] [place] [address] Performed By: #### 5 7021-8 ####[facility] LABCLIA [id number] [place] [address] [place] Hematocrit (Bld) [Volume fraction] 42.2 % Normal 36.0-46.0 [facility] Comment on above: Order Comment: Speci men Type: BLOOD SPECIMENOrdering Facility: [facility] Address: [address] [place] [address] Performed By: #### 5 7021-8 ####[facility] LABIA [id number] [place] [address] [place] Hemoglobin (Bld) [Mass/Vol] 13.5 g/dL Normal 11.5-15.5 [facility] Comment on above: Order Comment: Speci men Type: BLOOD SPECIMENOrdering Facility: [facility] Address: [address] [place] [address] Performed By: #### 5 7021-8 ####[facility] LABIA [id number] [place] [address] [place] Immature granulocytes (Bld) [#/Vol] 0.08 10*3/uL Normal <0.10 [facility] Comment on above: Order Comment: Speci men Type: BLOOD SPECIMENOrdering Facility: [facility] Address: [address] [place] [address] Performed By: #### 5 7021-8 ####[facility] LABIA [id number] [place] [address] [place] Immature granulocytes/100 WBC (Bld) 0.8 % Normal [facility] Comment on above: Order Comment: Speci men Type: BLOOD SPECIMENOrdering Facility: [facility] Address: [address] [place] [address] Performed By: #### 5 7021-8 ####[facility] LABIA [id number] [place] [address] [place] Lymphocytes (Bld) [#/Vol] 2.24 10*3/uL Normal 1.00-4.00 [facility] Comment on above: Order Comment: Speci men Type: BLOOD SPECIMENOrdering Facility: [facility] Address: [address] [place] [address] Performed By: #### 5 7021-8 ####[facility] LABIA [id number] [place] [id number] [place] Lymphocytes/100 WBC (Bld) 21.2 % Normal [facility] Comment on above: Order Comment: Speci men Type: BLOOD SPECIMENOrdering Facility: [facility] Address: [address] [place] [address] Performed By: #### 5 7021-8 ####[facility] [id number] [place] [address] [place] MCH (RBC) [Entitic mass] 29.0 pg Normal 26.0-34.0 [facility] Comment on above: Order Comment: Speci men Type: BLOOD SPECIMENOrdering Facility: [facility] Address: [address] [place] [address] Performed By: #### 5 7021-8 ####[facility] [id number] [place] [address] [place] MCHC (RBC) [Mass/Vol] 32.0 g/dL Normal 30.5-36.0 [facility] Comment on above: Order Comment: Speci men Type: BLOOD SPECIMENOrdering Facility: [facility] Address: [address] [place] [address] Performed By: #### 5 7021-8 ####[facility] [id number] [place] [address] [place] MCV (RBC) [Entitic vol] 90.6 fL Normal 80.0-100.0 C [facility] Comment on above: Order Comment: Speci men Type: BLOOD SPECIMENOrdering Facility: [facility] Address: [address] [place] [address] Performed By: #### 5 7021-8 ####[facility] LABCLIA [id number] [address] [place] [address] [place] Monocytes (Bld) [#/Vol] 0.84 10*3/uL Normal <0.87 [facility] Comment on above: Order Comment: Speci men Type: BLOOD SPECIMENOrdering Facility: [facility] Address: [address] [place] [address] Performed By: #### 5 7021-8 ####[facility] LABCLIA [id number] [place] [address] [place] Monocytes/100 WBC (Bld) 7.9 % Normal [facility] Comment on above: Order Comment: Speci men Type: BLOOD SPECIMENOrdering Facility: [facility] Address: [address] [place] [address] Performed By: #### 5 7021-8 ####[facility] LABCLIA [id number] [place] [address] [place] Neutrophils (Bld) [#/Vol] 7.33 10*3/uL Normal 1.45-7.50 [facility] Comment on above: Order Comment: Speci men Type: BLOOD SPECIMENOrdering Facility: [facility] Address: [address] [place] [address] Performed By: #### 5 7021-8 ####[facility] LABCLIA [id number] [place] [address] [place] Neutrophils/100 WBC (Bld) 69.2 % Normal [facility] Comment on above: Order Comment: Speci men Type: BLOOD SPECIMENOrdering Facility: [facility] Address: [address] [place] [address] Performed By: #### 5 7021-8 ####[facility] LABCLIA [id number] [place] [id number] [place] Nucleated RBC (Bld) [#/Vol] 10*3/uL Normal <0.01 [facility] Comment on above: Order Comment: Speci men Type: BLOOD SPECIMENOrdering Facility: [facility] Address: [address] [place] [address] Performed By: #### 5 7021-8 ####[facility] LABCLIA [id number] [address] [address] [place] Nucleated RBC/100 WBC (Bld) [Ratio] 0.0 /100 WBC Normal [facility] Comment on above: Order Comment: Speci men Type: BLOOD SPECIMENOrdering Facility: [facility] Address: [address] [place] [address] Performed By: #### 5 7021-8 ####[facility] LABCLIA [id number] [address] [address] [place] Platelet mean volume (Bld) [Entitic vol] 11.0 fL Normal 9.0-12.7 [facility] Comment on above: Order Comment: Speci men Type: BLOOD SPECIMENOrdering Facility: [facility] Address: [address] [place] [address] Performed By: #### 5 7021-8 ####[facility] LABIA [id number] [place] [address] [place] Platelets (Bld) [#/Vol] 177 10*3/uL Normal 150-400 [facility] Comment on above: Order Comment: Speci men Type: BLOOD SPECIMENOrdering Facility: [facility] Address: [address] [place] [address] Performed By: #### 5 7021-8 ####[facility] LABCLIA [id number] [address] [address] [place] RBC (Bld) [#/Vol] 4.66 10*6/uL Normal 3.90-5.20 [facility] Comment on above: Order Comment: Speci men Type: BLOOD SPECIMENOrdering Facility: [facility] Address: [address] [place] [address] Performed By: #### 5 7021-8 ####[facility] LABIA [id number] [place] [address] [place] WBC (Bld) [#/Vol] 10.58 10*3/uL Normal 3.70-11.00 [facility] Comment on above: Order Comment: Speci men Type: BLOOD SPECIMENOrdering Facility: [facility] Address: [address] [place] [address] Performed By: #### 5 7021-8 ####[facility] LABIA [id number] [place] [address] [place] CNCOon 01-03-2025 CNCO Letter Text Normal [facility] CNPTOUTREACHon 01-03-2025 CNPTOUTREACH Normal [facility] HBV DNA Qn (S)on 01-03-2025 HBV DNA LUIS M+probe Ql Not detected Normal Not detected [facility] Comment on above: Order Comment: Speci [facility] Type: BLOOD SPECIMENOrdering Facility: [facility] Address: [address] [place] [address] Performed By: #### 1 1258-1 ####[facility] LABIA [id number] [place] [address] [place] HBV core Ab Ser Qlon 025 HBV core Ab Ql (S) Negative Normal Negative [facility] Comment on above: Order Comment: Speci [facility] Type: BLOOD SPECIMENOrdering Facility: [facility] Address: [address] [place] [address] Result Comment: No e vidence of current or past infection with Hepatitis B virus. Should recent infection be suspected, repeat testing may be considered 3-4 weeks after this draw. Performed By: #### 3 1204-1, 5195-3, 27338-9, 42099-1 ####[facility] LABCLIA [id number] [place] [address] [place] HBV core IgM Ser Qlon 2024 HBV core IgM Ql (S) Positive Abnormal Negative [facility] Comment on above: Order Comment: Rand gonzalez Type: BLOOD SPECIMENOrdering Facility: [facility] Address: [address] [place] [address] Result Comment: The result suggests recent acute infection with Hepatitis B virus. Non-specific reactivity is not uncommon with this test. HBV core IgM antibody may also remain elevated for extended periods after an acute bout of infection. Clinical correlation required. Performed By: #### 3 1204-1, 5195-3, 38132-7, 47748-3 ####[facility] LABCLIA [id number] [address] [place] HBV e Ag SerPl Ql IAon 01-03 HBV e Ag IA Ql Negative Normal Negative [facility] Comment on above: Order Comment: Rand gonzalez Type: BLOOD SPECIMENOrdering Facility: [facility] Address: [address] [place] [address] Performed By: #### 1 3954-3, AHBE ####[facility] LABCLIA [id number] [address] [place] HBV surface Ab Ql (S)on 12-12 HBV surface Ab Qn (S) <8.00 Normal [facility] Comment on above: Order Comment: Rand gonzalez Type: BLOOD SPECIMENOrdering Facility: [facility] Address: [address] [place] [address] Result Comment: <8 m IU/mL: No serological evidence of immunity to Hepatitis B Virus.>/= 8 to <12 mIU/mL: No serological evidence of immunity to Hepatitis B Virus.>/= 12 mIU/mL: Consistent with serological evidence of immunity to Hepatitis B Virus. Performed By: #### 3 1204-1, 5195-3, 47257-1, 68055-7 ####[facility] LABCLIA [id number] [address] [place] HBV surface Ab Ser Qlon 12-12 HBV surface Ab Ql (S) Negative Normal [facility] Comment on above: Order Comment: Speci men Type: BLOOD SPECIMENOrdering Facility: [facility] Address: [address] [place] [address] Result Comment: No s erological evidence of immunity to Hepatitis B Virus. Performed By: #### 3 1204-1, 5195-3, 85323-4, 23455-3 ####[facility] LABCLIA [id number] [place] [address] [place] HBV surface Ag Ser Qlon 12-12 HBV surface Ag Ql (S) Negative Normal Negative [facility] Comment on above: Order Comment: Speci men Type: BLOOD SPECIMENOrdering Facility: [facility] Address: [address] [place] [address] Performed By: #### 3 1204-1, 5195-3, 95076-8, 71881-5 ####[facility] [id number] [place] [address] [place] HEP BE ANTIBODYon 01-03-2025 HBV e Ab IA Ql Negative Normal Negative [facility] Comment on above: Order Comment: Speci men Type: BLOOD SPECIMENOrdering Facility: [facility] Address: [address] [place] [address] Result Comment: This test should only be used in patients with a previously known and/or concurrent positive HBsAG result. Along with HBeAG test, Hepatitis B e antibody test is used for monitoring the natural history of Hepatitis B virus infection and prognostication. Clinical correlation is required. Performed By: #### 1 3954-3, AHBE ####[facility] LABIA [id number] [place] [address] [place] CNPNon 12-30-2024 CNPN Normal [facility] CNPTOUTREACHon 12-30-2024 CNPTOUTREACH Normal [facility] Basic metabolic 2000 panelon 12-28-2024 Anion gap [Moles/Vol] 15 mmol/L Normal 8-15 [facility] Comment on above: Order Comment: Speci men Type: BLOOD SPECIMENOrdering Facility: [facility] Address: [address] [place] [id number] Performed By: #### 2 4325-3, 73532-9 ####[facility] LABCLIA [id number] [facility] [place] [id number] [place] Calcium [Mass/Vol] 9.3 mg/dL Normal 8.5-10.2 [facility] Comment on above: Order Comment: Speci men Type: BLOOD SPECIMENOrdering Facility: [facility] Address: [address] [place] [address] Performed By: #### 2 4325-3, 54641-6 ####[facility] LABCLIA [id number] [place] [address] [place] Chloride [Moles/Vol] 94 mmol/L Low 98-107 [facility] Comment on above: Order Comment: Speci men Type: BLOOD SPECIMENOrdering Facility: [facility] Address: [address] [place] [address] Performed By: #### 2 4325-3, 55082-3 ####[facility] LABCLIA [id number] [address]UER[address] [place] [place] [address] [place] CO2 [Moles/Vol] 20 mmol/L Low 22-30 [facility] Comment on above: Order Comment: Speci men Type: BLOOD SPECIMENOrdering Facility: [facility] Address: [address] [place] [id number] Performed By: #### 2 4325-3, 74844-8 ####[facility] LABCLIA [id number] [facility] [place] [id number] [place] Creatinine [Mass/Vol] 0.52 mg/dL Low 0.58-0.96 [facility] Comment on above: Order Comment: Speci men Type: BLOOD SPECIMENOrdering Facility: [facility] Address: [address] [place] [address] Performed By: #### 2 4325-3, 58754-1 ####[facility] [id number] [place] [address] [place] Creatinine and Glomerular filtration rate.predicted panel (S/P/Bld) 106 mL/min/1.73m??? Normal >=60 [facility] Comment on above: Order Comment: Rand gonzalez Type: BLOOD SPECIMENOrdering Facility: [facility] Address: [address] [place] [address] Result Comment: Gia mated Glomerular Filtration Rate [...] actual GFR. Performed By: #### 2 4325-3, 91736-2 ####[facility] LABIA [id number] [place] [address] [place] Glucose [Mass/Vol] 196 mg/dL High 74-99 [facility] Comment on above: Order Comment: Rand gonzalez Type: BLOOD SPECIMENOrdering Facility: [facility] Address: [address] [place] [address] Result Comment: The [place] Diabetes Association (ADA) provides guidance for cutoff [...] Standards of Medical Care in Diabetes 2016, [place] [employer]. Diabetes Care. 2016.39(Suppl 1). Performed By: #### 2 4325-3, 54114-9 ####[facility] LABCLIA [id number] [place] [address] [place] Potassium [Moles/Vol] 4.4 mmol/L Normal 3.7-5.1 [facility] Comment on above: Order Comment: Speci men Type: BLOOD SPECIMENOrdering Facility: [facility] Address: [address] [place] [address] Performed By: #### 2 4325-3, 10040-4 ####[facility] LABIA [id number] [place] [address] [place] Sodium [Moles/Vol] 129 mmol/L Low 136-144 [facility] Comment on above: Order Comment: Speci men Type: BLOOD SPECIMENOrdering Facility: [facility] Address: [address] [place] [address] Performed By: #### 2 4325-3, 96737-4 ####[facility] LABIA [id number] [place] [address] [place] Urea nitrogen [Mass/Vol] 13 mg/dL Normal 7-21 [facility] Comment on above: Order Comment: Speci men Type: BLOOD SPECIMENOrdering Facility: [facility] Address: [address] [place] [address] Performed By: #### 2 4325-3, 10119-7 ####[facility] LABIA [id number] [place] [id number] [place] CBC W Auto Differential pane l (Bld)on 12-28-2024 Basophils (Bld) [#/Vol] 0.07 10*3/uL Normal <0.11 [facility] Comment on above: Order Comment: Speci men Type: BLOOD SPECIMENOrdering Facility: [facility] Address: [address] [place] [address] Performed By: #### 5 7021-8 ####[facility] LABCLIA [id number] [place] [address] [place] Basophils/100 WBC (Bld) 0.6 % Normal [facility] Comment on above: Order Comment: Speci men Type: BLOOD SPECIMENOrdering Facility: [facility] Address: [address] [place] [address] Performed By: #### 5 7021-8 ####[facility] LABCLIA [id number] [place] [address] [place] Differential cell count method Nom (Bld) Auto Normal [facility] Comment on above: Order Comment: Speci men Type: BLOOD SPECIMENOrdering Facility: [facility] Address: [address] [place] [address] Performed By: #### 5 7021-8 ####[facility] LABCLIA [id number] [place] [address] [place] Eosinophils (Bld) [#/Vol] 0.03 10*3/uL Normal <0.46 [facility] Comment on above: Order Comment: Speci men Type: BLOOD SPECIMENOrdering Facility: [facility] Address: [address] [place] [address] Performed By: #### 5 7021-8 ####[facility] LABCLIA [id number] [address] [place] Eosinophils/100 WBC (Bld) 0.3 % Normal [facility] Comment on above: Order Comment: Speci men Type: BLOOD SPECIMENOrdering Facility: [facility] Address: [address] [place] [address] Performed By: #### 5 7021-8 ####[facility] LABCLIA [id number] [place] [address] [place] Erythrocyte distribution width (RBC) [Ratio] 14.1 % Normal 11.5-15.0 [facility] Comment on above: Order Comment: Speci men Type: BLOOD SPECIMENOrdering Facility: [facility] Address: [address] [place] [address] Performed By: #### 5 7021-8 ####[facility] LABCLIA [id number] [place] [address] [place] Hematocrit (Bld) [Volume fraction] 42.9 % Normal 36.0-46.0 [facility] Comment on above: Order Comment: Speci men Type: BLOOD SPECIMENOrdering Facility: [facility] Address: [address] [place] [address] Performed By: #### 5 7021-8 ####[facility] LABIA [id number] [place] [address] [place] Hemoglobin (Bld) [Mass/Vol] 14.1 g/dL Normal 11.5-15.5 [facility] Comment on above: Order Comment: Speci men Type: BLOOD SPECIMENOrdering Facility: [facility] Address: [address] [place] [address] Performed By: #### 5 7021-8 ####[facility] LABIA [id number] [place] [address] [place] Immature granulocytes (Bld) [#/Vol] 0.12 10*3/uL High <0.10 [facility] Comment on above: Order Comment: Speci men Type: BLOOD SPECIMENOrdering Facility: [facility] Address: [address] [place] [address] Performed By: #### 5 7021-8 ####[facility] LABCLIA [id number] [place] [address] [place] Immature granulocytes/100 WBC (Bld) 1.0 % Normal [facility] Comment on above: Order Comment: Speci men Type: BLOOD SPECIMENOrdering Facility: [facility] Address: [address] [place] [address] Performed By: #### 5 7021-8 ####[facility] LABCLIA [id number] [place] [address] [place] Lymphocytes (Bld) [#/Vol] 2.70 10*3/uL Normal 1.00-4.00 [facility] Comment on above: Order Comment: Speci men Type: BLOOD SPECIMENOrdering Facility: [facility] Address: [address] [place] [address] Performed By: #### 5 7021-8 ####[facility] LABCLIA [id number] [place] [address] [place] Lymphocytes/100 WBC (Bld) 23.1 % Normal [facility] Comment on above: Order Comment: Speci men Type: BLOOD SPECIMENOrdering Facility: [facility] Address: [address] [place] [address] Performed By: #### 5 7021-8 ####[facility] LABCLIA [id number] [place] [address] [place] MCH (RBC) [Entitic mass] 29.3 pg Normal 26.0-34.0 [facility] Comment on above: Order Comment: Speci men Type: BLOOD SPECIMENOrdering Facility: [facility] Address: [address] [place] [address] Performed By: #### 5 7021-8 ####[facility] LABCLIA [id number] [place] [address] [place] MCHC (RBC) [Mass/Vol] 32.9 g/dL Normal 30.5-36.0 [facility] Comment on above: Order Comment: Speci men Type: BLOOD SPECIMENOrdering Facility: [facility] Address: [address] [place] [address] Performed By: #### 5 7021-8 ####[facility] LABCLIA [id number] [place] [address] [place] MCV (RBC) [Entitic vol] 89.2 fL Normal 80.0-100.0 [facility] Comment on above: Order Comment: Speci men Type: BLOOD SPECIMENOrdering Facility: [facility] Address: [address] [place] [address] Performed By: #### 5 7021-8 ####[facility] LABCLIA [id number] [place] [id number] [place] Monocytes (Bld) [#/Vol] 0.56 10*3/uL Normal <0.87 [facility] Comment on above: Order Comment: Speci men Type: BLOOD SPECIMENOrdering Facility: [facility] Address: [address] [place] [address] Performed By: #### 5 7021-8 ####[facility] LABCLIA [id number] [place] [address] [place] Monocytes/100 WBC (Bld) 4.8 % Normal [facility] Comment on above: Order Comment: Speci men Type: BLOOD SPECIMENOrdering Facility: [facility] Address: [address] [place] [address] Performed By: #### 5 7021-8 ####[facility] LABCLIA [id number] [place] [address] [place] Neutrophils (Bld) [#/Vol] 8.22 10*3/uL High 1.45-7.50 [facility] Comment on above: Order Comment: Speci men Type: BLOOD SPECIMENOrdering Facility: [facility] Address: [address] [place] [address] Performed By: #### 5 7021-8 ####[facility] LABCLIA [id number] [place] [id number] [place] Neutrophils/100 WBC (Bld) 70.2 % Normal [facility] Comment on above: Order Comment: Speci men Type: BLOOD SPECIMENOrdering Facility: [facility] Address: [address] [place] [address] Performed By: #### 5 7021-8 ####[facility] LABCLIA [id number] [address] [address] [place] Nucleated RBC (Bld) [#/Vol] 10*3/uL Normal <0.01 [facility] Comment on above: Order Comment: Speci men Type: BLOOD SPECIMENOrdering Facility: [facility] Address: [address] [place] [address] Performed By: #### 5 7021-8 ####[facility] LABCLIA [id number] [place] [address] [place] Nucleated RBC/100 WBC (Bld) [Ratio] 0.0 /100 WBC Normal [facility] Comment on above: Order Comment: Speci men Type: BLOOD SPECIMENOrdering Facility: [facility] Address: [address] [place] [address] Performed By: #### 5 7021-8 ####[facility] LABIA [id number] [address], [place] [address] [place] Platelet mean volume (Bld) [Entitic vol] 11.9 fL Normal 9.0-12.7 [facility] Comment on above: Order Comment: Speci men Type: BLOOD SPECIMENOrdering Facility: [facility] Address: [address] [place] [address] Performed By: #### 5 7021-8 ####[facility] LABIA [id number] [place] [address] [place] Platelets (Bld) [#/Vol] 144 10*3/uL Low 150-400 [facility] Comment on above: Order Comment: Speci men Type: BLOOD SPECIMENOrdering Facility: [facility] Address: [address] [place] [address] Performed By: #### 5 7021-8 ####[facility] LABCLIA [id number] [address] [address] [place] RBC (Bld) [#/Vol] 4.81 10*6/uL Normal 3.90-5.20 [facility] Comment on above: Order Comment: Speci men Type: BLOOD SPECIMENOrdering Facility: [facility] Address: [address] [place] [address] Performed By: #### 5 7021-8 ####[facility] LABCLIA [id number] [place] [address] [place] WBC (Bld) [#/Vol] 11.70 10*3/uL High 3.70-11.00 [facility] Comment on above: Order Comment: Speci men Type: BLOOD SPECIMENOrdering Facility: [facility] Address: [address] [place] [address] Performed By: #### 5 7021-8 ####[facility] LABCLIA [id number] [place] [address] [place] CNOVon 12-28-2024 CNOV Normal [facility] HAV IgM Ser Qlon 12-28-2024 HAV IgM Ql (S) Negative Normal Negative [facility] Comment on above: Order Comment: Speci [facility] Type: BLOOD SPECIMENOrdering Facility: [facility] Address: [address] [place] [address] Result Comment: No e vidence of recent infection with Hepatitis A virus. Performed By: #### 3 1204-1, 5195-3, 30464-8 ####[facility] LABIA [id number] [place] [address] [place] HBV core IgM Ser Qlon 2024 HBV core IgM Ql (S) Positive Abnormal Negative [facility] Comment on above: Order Comment: Andreii [facility] Type: BLOOD SPECIMENOrdering Facility: [facility] Address: [address] [place] [address] Result Comment: The result suggests recent acute infection with Hepatitis B virus. Non-specific reactivity is not uncommon with this test. HBV core IgM antibody may also remain elevated for extended periods after an acute bout of infection. Clinical correlation required. Performed By: #### 3 1204-1, 5-3, 42774-8 ####[facility] LABCLIA [id number] [address] [address] [place] HBV surface Ag Ser Qlon 03- HBV surface Ag Ql (S) Negative Normal Negative [facility] Comment on above: Order Comment: Speci men Type: BLOOD SPECIMENOrdering Facility: [facility] Address: [address] [place] [address] Performed By: #### 3 1204-1, 5-3, 37172-0 ####[facility] LABCLIA [id number] [place] [address] [place] HCV RNA LUIS M+probe Qnon 12-28 HCV RNA LUIS M+probe Ql Not detected Normal Not detected [facility] Comment on above: Order Comment: Speci men Type: BLOOD SPECIMENOrdering Facility: [facility] Address: [address] [place] [address] Performed By: #### 1 1011-4 ####[facility] LABCLIA [id number] [place] [address] [place] Hepatic function 2000 panelo n 12-28-2024 Albumin [Mass/Vol] 4.3 g/dL Normal 3.9-4.9 [facility] Comment on above: Order Comment: Speci men Type: BLOOD SPECIMENOrdering Facility: [facility] Address: [address] [place] [address] Performed By: #### 2 4325-3, 74772-3 ####[facility] LABCLIA [id number] [place] [id number] [place] ALP [Catalytic activity/Vol] 123 U/L Normal 34-123 [facility] Comment on above: Order Comment: Speci men Type: BLOOD SPECIMENOrdering Facility: [facility] Address: [address] [place] [address] Performed By: #### 2 4325-3, 82804-7 ####[facility] LABCLIA [id number] [facility] [address] [place] [address] [place] ALT [Catalytic activity/Vol] 32 U/L Normal 7-38 [facility] Comment on above: Order Comment: Speci men Type: BLOOD SPECIMENOrdering Facility: [facility] Address: [address] [place] [address] Performed By: #### 2 4325-3, 41347-6 ####[facility] LABCLIA [id number] [facility] [address], [facility] [place] AST [Catalytic activity/Vol] 17 U/L Normal 13-35 [facility] Comment on above: Order Comment: Speci men Type: BLOOD SPECIMENOrdering Facility: [facility] Address: [address] [place] [address] Performed By: #### 2 4325-3, 96512-6 ####[facility] LABCLIA [id number] [address], [place] [address] [place] Bilirubin [Mass/Vol] 0.2 mg/dL Normal 0.2-1.3 [facility] Comment on above: Order Comment: Speci men Type: BLOOD SPECIMENOrdering Facility: [facility] Address: [address] [place] [address] Performed By: #### 2 4325-3, 20645-3 ####[facility] LABCLIA [id number] [address], [facility] [place] Bilirubin.conjugated [Mass/Vol] mg/dL Normal <0.3 [facility] Comment on above: Order Comment: Speci men Type: BLOOD SPECIMENOrdering Facility: [facility] Address: [address] [place] [address] Performed By: #### 2 4325-3, 41725-6 ####[facility] LABCLIA [id number] [address] [place] [address] [place] Protein [Mass/Vol] 7.5 g/dL Normal 6.3-8.0 [facility] Comment on above: Order Comment: Speci men Type: BLOOD SPECIMENOrdering Facility: [facility] Address: [address] [place] [address] Performed By: #### 2 4325-3, 07069-9 ####[facility] LABCLIA [id number] [facility] [id number] [place] [address] [place] Culture, Blood (WB)on 2024 CUB Blood cultures x2, f rom two different sites No growth in 5 days. Normal [facility] Comment on above: Performed By: #### L 100.0100 #### [facility] Laboratory [address] [place], [address] Performed By: #### L 500.4050, L501.2450, L100.0500, L501.4020 #### [facility] [address] [place], [address] Urine Cultureon 12-23-2024 URC Mixed Gram Pos Gram Neg Org [place] Count <1000 MIXC Mixed contaminants. Submit a new specimen if indicated. Normal [facility] Comment on above: Performed By: #### L 100.0100 #### [facility] [address] [place], [address] 12 Lead EKGon 12-21-2024 12 Lead EKG [facility]ovascular Services [address] [place] [address] 12 Lead EKG 12/21/24 0857 MR#: [id number] Acct: [id number] Name: BRENDA LE Rep #: [id number] : 1965 59 From: Gary Bose MD [...] Abnormal ECG Confirmed by TAMMY SANDERS, GLORIA ([id number]), magazine editor CRISTAL OTT ([id number]) on 12/27/2024 11:14:51 AM Referred By: Confirmed By: GLORIA BOSE MD 12/27/24 1114 Date Gary Bose MD CC: ESEQUIEL Salmon; Dr. Babak Garcia, DO Signed Normal [facility] Absolute lymphocyte countOrd ered By: Babak Garcia on 12-21-2024 Lymphocytes Auto (Unsp spec) [#/Vol] 1.06 10*3/uL 0.83-4.51 [facility] Absolute neutrophil countOrd ered By: Babak Garcia on 12-21-2024 Neutrophils (Bld) [#/Vol] 10.6 10*3/uL High 2.0-7.7 [facility] Activated partial thrombopla stin time (aPTT) in platelet poor plasma by coagulation aOrdered By: Babak Garcia on 12-21-2024 aPTT Coag (PPP) [Time] 35.4 s 24.1-36.2 [facility] Anion gap in Serum or Plasma Ordered By: Babak Garcia on 12-21-2024 Anion gap [Moles/Vol] 11 mmol/L 5-15 [facility] Automated blood erythrocyte countOrdered By: Babak Garcia on 12-21-2024 RBC (Bld) [#/Vol] 4.30 10*6/uL Normal 4.2-5.4 [facility] Comment on above: Performed By: #### L 500.2500, L100.0100 #### [facility] Laboratory [facility] [place], [address] Automated blood hematocrit ( percentage)Ordered By: Babak Garcia on 12-21-2024 Hematocrit (Bld) [Volume fraction] 38.1 % Normal 37-47 [facility] Comment on above: Performed By: #### L 500.2500, L100.0100 #### [facility] [address] [place], [address] Automated lymphocyte count a s percentage of total leukocytesOrdered By: Babak Garcia on 12-21-2024 Lymphocytes/100 WBC (Bld) 8.6 % Low 19-41 [facility] Comment on above: Performed By: #### L 500.2500, L100.0100 #### [facility] [address] [place], [address] Lymphocytes/100 WBC Auto (Unsp spec) 8.6 % Low - [facility] BUN/creatinine ratioOrdered By: Babak Garcia on 12-21-2024 Urea nitrogen/Creatinine [Mass ratio] 19.2 mg/mg 10-20 [facility] Basophil percentageOrdered B y: Babak Garcia on 12-21-2024 Basophils/100 WBC (Bld) 0.2 % Normal 0-1 [facility] Comment on above: Performed By: #### L 500.2500, L100.0100 #### [facility] [address] [facility] [place], [address] Bilirubin Test strip Ql (U)O rdered By: Babak Garcia on 12-21-2024 Bilirubin Ql (U) Negative Negative [facility] Bilirubin, totalOrdered By: Babak Garcia on 12-21-2024 Bilirubin [Mass/Vol] 0.29 mg/dL Normal 0.00-1.30 [facility] Comment on above: Performed By: #### L 500.2500, L100.0100 #### [facility] [address] [place], [address] Blood cultureOrdered By: Rogelio Garcia on 12-21-2024 Bacteria identified Cx Nom (Bld) No growth in 5 days. [facility] Bacteria identified Cx Nom (Bld) No growth in 5 days. [facility] CBC W/Diff, Automatedon 12-11 Absolute Lymph 1.06 X10 3/uL Normal 0.83-4.51 [facility] Comment on above: Performed By: #### L 500.2500, L100.0100 #### [facility] [address] [place], [address] Absolute Neut 10.6 X10 3/uL High 2.0-7.7 [facility] Comment on above: Performed By: #### L 500.2500, L100.0100 #### [facility] [address] [place], [address] IG% 0.400 Normal 0.0-0.9 [facility] Comment on above: Result Comment: IG% - Immature Granulocytes (promyelocytes, myelocytes and metamyelocytes) > 1% indicates that a LEFT SHIFT is Present. Performed By: #### L 500.2500, L100.0100 #### [facility] [address] [place], [address] Nucleated RBC (Bld) [#/Vol] 0 10*3/uL Normal 0-5 [facility] Comment on above: Performed By: #### L 500.2500, L100.0100 #### [facility] [address] [place], [address] RDW SD 46.4 fl High 35.1-43.9 [facility] Comment on above: Performed By: #### L 500.2500, L100.0100 #### [facility] [address] [place], [address] Absolute Lymph 1.05 X10 3/uL Normal 0.83-4.51 [facility] Comment on above: Result Comment: This specimen has been REJECTED due to Laboratory criteria: Contaminated/Leaked. juliocesar has been notified of need of recollection. 12/21/24 0957 Issac Moreno Performed By: #### L 100.0100 #### [facility] [address] [place], [place], [address] Absolute Neut 10.3 X10 3/uL High 2.0-7.7 [facility] Comment on above: Result Comment: This specimen has been REJECTED due to Laboratory criteria: Contaminated/Leaked. juliocesar has been notified of need of recollection. 12/21/24956 Issac Chawla White Performed By: #### L 100.0100 #### [facility] [address] [place], [place], [id number] (294) BASO# 0.05 X10 3/uL Normal [facility] Comment on above: Result Comment: This specimen has been REJECTED due to Laboratory criteria: Contaminated/Leaked. juliocesar has been notified of need of recollection. 12/21/24956 Issac Chawla White Performed By: #### L 100.0100 #### [facility] [address] [place], [address] Basophils/100 WBC (Bld) 0.4 % Normal 0-1 [facility] Comment on above: Result Comment: This specimen has been REJECTED due to Laboratory criteria: Contaminated/Leaked. juliocesar has been notified of need of recollection. 12/21/24956 Issac Chawla White Performed By: #### L 100.0100 #### [facility] [address] [place], [address] EOS# 0.01 X10 3/uL Normal [facility] Comment on above: Result Comment: This specimen has been REJECTED due to Laboratory criteria: Contaminated/Leaked. juliocesar has been notified of need of recollection. 12/21/24956 Issac Chawla White Performed By: #### L 100.0100 #### [facility] [address] [place], [place], [id number] (142) Erythrocyte distribution width (RBC) [Ratio] 14.4 % Normal 11.6-14.6 [facility] Comment on above: Result Comment: This specimen has been REJECTED due to Laboratory criteria: Contaminated/Leaked. juliocesar has been notified of need of recollection. 12/21/24956 Issac Chawla White Performed By: #### L 100.0100 #### [facility] [address] [place], [place], [id number] (959) Hematocrit (Bld) [Volume fraction] 40.3 % Normal 37-47 [facility] Comment on above: Result Comment: This specimen has been REJECTED due to Laboratory criteria: Contaminated/Leaked. loryefrie has been notified of need of recollection. 12/21/24956 Issac Chawla White Performed By: #### L 100.0100 #### [facility] [address] [place], [place], [id number] (705) Hemoglobin (Bld) [Mass/Vol] 13.3 g/dL Normal 12.0-15.0 [facility] Comment on above: Result Comment: This specimen has been REJECTED due to Laboratory criteria: Contaminated/Leaked. loryefrie has been notified of need of recollection. 12/21/24956 Issac Chawla White Performed By: #### L 100.0100 #### [facility] [address] [place], [place], [phone] (379) IG# 0.070 X10 3/uL High 0.0-0.0 [facility] Comment on above: Result Comment: This specimen has been REJECTED due to Laboratory criteria: Contaminated/Leaked. [email or web address] has been notified of need of recollection. 12/21/24956 Issac L White Performed By: #### L 100.0100 #### [facility] [address] [place], [address] IG% 0.600 Normal 0.0-0.9 [facility] Comment on above: Result Comment: This specimen has been REJECTED due to Laboratory criteria: Contaminated/Leaked. veronikae has been notified of need of recollection. 12/21/24956 Issac L White IG% - Immature Granulocytes (promyelocytes, myelocytes and metamyelocytes) > 1% indicates that a LEFT SHIFT is Present. Performed By: #### L 100.0100 #### [facility] [address] [place], [address] LYMPH# 1.05 X10 3/ul Normal 0.83-4.51 [facility] Comment on above: Result Comment: This specimen has been REJECTED due to Laboratory criteria: Contaminated/Leaked. juliocesar has been notified of need of recollection. 12/21/24 0957 Issac L White Performed By: #### L 100.0100 #### [facility] [address] [place], [address] Lymphocytes/100 WBC (Bld) 8.7 % Low 19-41 [facility] Comment on above: Result Comment: This specimen has been REJECTED due to Laboratory criteria: Contaminated/Leaked. juliocesar has been notified of need of recollection. 12/21/24 0957 Issac L White Performed By: #### L 100.0100 #### [facility] [address] [place], [address] MCH (RBC) [Entitic mass] 29.2 pg Normal 27.0-32.0 [facility] Comment on above: Result Comment: This specimen has been REJECTED due to Laboratory criteria: Contaminated/Leaked. juliocesar has been notified of need of recollection. 12/21/24 0957 Issac L White Performed By: #### L 100.0100 #### [facility] [address] [place], [address] MCHC (RBC) [Mass/Vol] 33.0 g/dL Normal 32-36 [facility] Comment on above: Result Comment: This specimen has been REJECTED due to Laboratory criteria: Contaminated/Leaked. [email or web address] has been notified of need of recollection. 12/21/24 0957 Issac L White Performed By: #### L 100.0100 #### [facility] [address] [place], [address] MCV (RBC) [Entitic vol] 88.4 fL Normal 81-99 [facility] Comment on above: Result Comment: This specimen has been REJECTED due to Laboratory criteria: Contaminated/Leaked. [email or web address] has been notified of need of recollection. 12/21/24956 Issac Chawla White Performed By: #### L 100.0100 #### [facility] [address] [place], [address] MONO # 0.49 X10 3/uL Normal [facility] Comment on above: Result Comment: This specimen has been REJECTED due to Laboratory criteria: Contaminated/Leaked. juliocesar has been notified of need of recollection. 12/21/24956 Issac L White Performed By: #### L 100.0100 #### [facility] [address] [place], [address] Monocytes/100 WBC (Bld) 4.1 % Normal 0-10 [facility] Comment on above: Result Comment: This specimen has been REJECTED due to Laboratory criteria: Contaminated/Leaked. juliocesar has been notified of need of recollection. 12/21/24956 Issac L White Performed By: #### L 100.0100 #### [facility] [address] [place], [address] Neutrophil # 10.34 X10 3/uL High 2.7-7.7 [facility] Comment on above: Result Comment: This specimen has been REJECTED due to Laboratory criteria: Contaminated/Leaked. juliocesar has been notified of need of recollection. 12/21/24956 Issac L White Performed By: #### L 100.0100 #### [facility] [address] [place], [address] Neutrophils/100 WBC (Bld) 86.1 % High 47-70 [facility] Comment on above: Result Comment: This specimen has been REJECTED due to Laboratory criteria: Contaminated/Leaked. veronikae has been notified of need of recollection. 12/21/24956 Issac L White Performed By: #### L 100.0100 #### [facility] [address] [place], [address] Nucleated RBC (Bld) [#/Vol] 0 10*3/uL Normal 0-5 [facility] Comment on above: Result Comment: This specimen has been REJECTED due to Laboratory criteria: Contaminated/Leaked. juliocesar has been notified of need of recollection. 12/21/2457 Issac Chawla White Performed By: #### L 100.0100 #### [facility] [address] [place], [address] Platelet mean volume (Bld) [Entitic vol] 9.9 fL Normal 6.2-12.0 [facility] Comment on above: Result Comment: This specimen has been REJECTED due to Laboratory criteria: Contaminated/Leaked. juliocesar has been notified of need of recollection. 12/21/24956 Issac L White Performed By: #### L 100.0100 #### [facility] [address] [place], [address] Platelets (Bld) [#/Vol] 201 10*3/uL Normal 150-450 [facility] Comment on above: Result Comment: This specimen has been REJECTED due to Laboratory criteria: Contaminated/Leaked. juliocesar has been notified of need of recollection. 12/21/24956 Issac L White Performed By: #### L 100.0100 #### [facility] [address] [place], [address] RBC (Bld) [#/Vol] 4.56 10*6/uL Normal 4.2-5.4 [facility] Comment on above: Result Comment: This specimen has been REJECTED due to Laboratory criteria: Contaminated/Leaked. juliocesar has been notified of need of recollection. 12/21/24956 Issac L White Performed By: #### L 100.0100 #### [facility] [address] [place], [address] RDW SD 46.5 fl High 35.1-43.9 [facility] Comment on above: Result Comment: This specimen has been REJECTED due to Laboratory criteria: Contaminated/Leaked. juliocesar has been notified of need of recollection. 12/21/24 0957 Issac Chawla White Performed By: #### L 100.0100 #### [facility] [address] [place], [address] WBC (Bld) [#/Vol] 12.0 10*3/uL High 4.4-11.0 [facility] Comment on above: Result Comment: This specimen has been REJECTED due to Laboratory criteria: Contaminated/Leaked. juliocesar has been notified of need of recollection. 12/21/24 0957 Issac Chawla White Performed By: #### L 100.0100 #### [facility] [address] [place], [address] Carbon dioxide, total [Moles /volume] in Central venous bloodOrdered By: Babak Garcia on 12-21-2024 CO2 [Moles/Vol] 22.6 mmol/L Normal 21.0-32.0 [facility] Comment on above: Performed By: #### L 500.2500, L100.0100 #### [facility] [address] 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 COMPARISON: No relevant prior studies available. FINDINGS: LUNGS AND PLEURAL SPACES: Pulmonary venous congestion. No consolidation. No pneumothorax. HEART: Unremarkable. No cardiomegaly. MEDIASTINUM: Unremarkable. Normal mediastinal contour. BONES/JOINTS: Unremarkable. No acute fracture. RAD/Chest PA and Lateral IMPRESSION: Pulmonary venous congestion. Reading [facility] CC: ESEQUIEL Salmon; Dr. Babak Garcia DO Indian Nanny: Signed Normal [facility] Chloride assayOrdered By: Rory Garcia on 12-21-2024 Chloride [Moles/Vol] 102 mmol/L Normal 98-108 [facility] Comment on above: Performed By: #### L 500.2500, L100.0100 #### [facility] [address] [place], [address] Comprehensive Metabolic Prof ilon 12-21-2024 ALK PHOS 108 U/L High 35-104 [facility] Comment on above: Performed By: #### L 500.2500, L100.0100 #### [facility] [address] [place], [address] BUN/CRE 19.2 RATIO Normal 10-20 [facility] Comment on above: Performed By: #### L 500.2500, L100.0100 #### [facility] [address] [place], [address] ECRCL 127.81 ml/min Normal 50-250 [facility] Comment on above: Performed By: #### L 500.2500, L100.0100 #### [facility] [address] [place], [address] GAP 11 Normal 5-15 [facility] Comment on above: Performed By: #### L 500.2500, L100.0100 #### [facility] [address] [place], [address] T PROT 6.3 g/dL Normal 5.9-8.4 [facility] Comment on above: Performed By: #### L 500.2500, L100.0100 #### [facility] [address] [place], [address] ALB Normal 3.4-4.8 [facility] Comment on above: Result Comment: This specimen has been REJECTED due to Laboratory criteria: Contaminated/Leaked. juliocesar has been notified of need of recollection. 12/21/24957 Issac Chawla White Performed By: #### L 100.0100 #### [facility] [address] [place], [address] ALK PHOS Normal 35-104 [facility] Comment on above: Result Comment: This specimen has been REJECTED due to Laboratory criteria: Contaminated/Leaked. rishabhyefrijaqueline has been notified of need of recollection. 12/21/24957 Issac Chawla White Performed By: #### L 100.0100 #### [facility] [address] [place], [address] ALT Normal <=34 [facility] Comment on above: Result Comment: This specimen has been REJECTED due to Laboratory criteria: Contaminated/Leaked. rishabhyefrijaqueline has been notified of need of recollection. 12/21/24957 Issac Chawla White Performed By: #### L 100.0100 #### [facility] [address] [place], [address] AST Normal <=31 [facility] Comment on above: Result Comment: This specimen has been REJECTED due to Laboratory criteria: Contaminated/Leaked. rishabhkathy has been notified of need of recollection. 12/21/24957 Issac Chawla White Performed By: #### L 100.0100 #### [facility] [address] [place], [address] BUN Normal 4-19 [facility] Comment on above: Result Comment: This specimen has been REJECTED due to Laboratory criteria: Contaminated/Leaked. juliocesar has been notified of need of recollection. 12/21/24957 Issac Chawla White Performed By: #### L 100.0100 #### [facility] [address] [place], [address] BUN/CRE Normal 10-20 [facility] Comment on above: Result Comment: This specimen has been REJECTED due to Laboratory criteria: Contaminated/Leaked. juliocesar has been notified of need of recollection. 12/21/24957 Issac Moreno Performed By: #### L 100.0100 #### [facility] [address] [place], [address] Calcium Normal 7.6-11.0 [facility] Comment on above: Result Comment: This specimen has been REJECTED due to Laboratory criteria: Contaminated/Leaked. juliocesar has been notified of need of recollection. 12/21/24957 Issac Moreno Performed By: #### L 100.0100 #### [facility] [address] [place], [address] CL Normal 98-108 [facility] Comment on above: Result Comment: This specimen has been REJECTED due to Laboratory criteria: Contaminated/Leaked. juliocesar has been notified of need of recollection. 12/21/24957 Issac Chawla White Performed By: #### L 100.0100 #### [facility] [address] [place], [address] CO2 Normal 21.0-32.0 [facility] Comment on above: Result Comment: This specimen has been REJECTED due to Laboratory criteria: Contaminated/Leaked. juliocesar has been notified of need of recollection. 12/21/24957 Issac Chawla White Performed By: #### L 100.0100 #### [facility] [address] [place], [address] CREAT,SERUM Normal 0.70-1.20 [facility] Comment on above: Result Comment: This specimen has been REJECTED due to Laboratory criteria: Contaminated/Leaked. juliocesar has been notified of need of recollection. 12/21/24957 Issac Chawla White Performed By: #### L 100.0100 #### [facility] [address] [place], [address] eGFR Normal >60 [facility] Comment on above: Result Comment: This specimen has been REJECTED due to Laboratory criteria: Contaminated/Leaked. juliocesar has been notified of need of recollection. 12/21/24957 Issac Moreno Performed By: #### L 100.0100 #### [facility] [address] [place], [address] GAP Normal 5-15 [facility] Comment on above: Result Comment: This specimen has been REJECTED due to Laboratory criteria: Contaminated/Leaked. rishabhyefrie has been notified of need of recollection. 12/21/24957 Issac Chawla White Performed By: #### L 100.0100 #### [facility] [address] [place], [address] GLU Normal 70-99 [facility] Comment on above: Result Comment: This specimen has been REJECTED due to Laboratory criteria: Contaminated/Leaked. juliocesar has been notified of need of recollection. 12/21/24957 Issac Chawla White Performed By: #### L 100.0100 #### [facility] [address] [place], [address] Potassium Normal 3.3-5.1 [facility] Comment on above: Result Comment: This specimen has been REJECTED due to Laboratory criteria: Contaminated/Leaked. juliocesar has been notified of need of recollection. 12/21/24957 Issac Chawla White Performed By: #### L 100.0100 #### [facility] [address] [place], [address] T BILI Normal 0.00-1.30 [facility] Comment on above: Result Comment: This specimen has been REJECTED due to Laboratory criteria: Contaminated/Leaked. rishabhyefrie has been notified of need of recollection. 12/21/24957 Issac Chawla White Performed By: #### L 100.0100 #### [facility] [address] [place], [address] T PROT Normal 5.9-8.4 [facility] Comment on above: Result Comment: This specimen has been REJECTED due to Laboratory criteria: Contaminated/Leaked. juliocesar has been notified of need of recollection. 12/21/24 0958 Issac Moreno Performed By: #### L 100.0100 #### [facility] [address] [place], [address] Comprehensive Metabolic Profil Normal 133-145 [facility] Comment on above: Result Comment: This specimen has been REJECTED due to Laboratory criteria: Contaminated/Leaked. juliocesar has been notified of need of recollection. 12/21/24 0958 Issac Moreno Performed By: #### L 100.0100 #### [facility] [address] [place], [address] Comprehensive Metabolic Prof ilOrdered By: Babak Garcia on 12-21-2024 AST [Catalytic activity/Vol] 28 U/L Normal <=31 [facility] Comment on above: Hemolysis present, R esults could be affected. Result Comment: Hemo lysis present, Results??could be affected. ?? Performed By: #### L 500.2500, L100.0100 #### [facility] [address] [place], [address] Emergency Department Summary on 12-21-2024 Emergency Department Summary [facility] Medical Records Department [address] [place] [address] Emergency Department Summary 12/21/24 MR#: [id number] Acct: [id number] Name: BRENDA LE Rep #: [id number] : 1965 59 From: Babak Garcia DO PCP: Shelia Salmon, [employer]ER [employer] Status:REG ER Location: ED HPI History of [...] 2 ill individuals right now in her senior care. Patient states that she has been wheezing a lot lately. Per EMS they did not give any breathing treatments as her lungs were clear for them. [facility] Medical History Obesity (BMI 30-39.9) Hyponatremia [...] Rx table (more content not included)... Normal [facility] Eosinophil percentageOrdered By: Babak Garcia on 12-21-2024 Eosinophils/100 WBC (Bld) 0.1 % Normal 0-5 [facility] Comment on above: Performed By: #### L 500.2500, L100.0100 #### [facility] [address] [place], [address] Result Comment: This specimen has been REJECTED due to Laboratory criteria: Contaminated/Leaked. juliocesar has been notified of need of recollection. 12/21/24 0957 Issac Moreno Performed By: #### L 100.0100 #### [facility] [address] [place], [address] Epithelial cells.squamous LM Ql (Urine sed)Ordered By: Babak Garcia on 12-21-2024 Epithelial cells.squamous LM.HPF (Urine sed) [#/Area] 0 /[HPF] 5-10 [facility] Erythrocyte distribution wid th ratioOrdered By: Babak Garcia on 12-21-2024 Erythrocyte distribution width (RBC) [Ratio] 14.3 % Normal 11.6-14.6 [facility] Comment on above: Performed By: #### L 500.2500, L100.0100 #### [facility] [address] [place], [address] Erythrocyte distribution wid th standard deviationOrdered By: Babak Garcia on 12-21-2024 Erythrocyte distribution width (RBC) [Entitic vol] 46.4 fL High 35.1-43.9 [facility] Erythrocyte distribution width (RBC) [Ratio] 46.4 fl High 35.1-43.9 [facility] Estimation of creatinine epi aranceOrdered By: Babak Garcia on 12-21-2024 Estimated Creatinine Clearance Calc 127.81 ml/min 50-250 [facility] GFR/1.73 sq M.predicted kam g non-blacks MDRD (S/P/Bld) [Vol rate/Area]Ordered By: Babak Garcia on 12-21-2024 Estimated GFR (MDRD) Non-Af Amer 109 >60 [facility] Comment on above: mL/min/1.73m2 CKD-EP I Creatinine Equation (2020) Glomerular filtration rate ( GFR) estimation/1.73 sq m using serum, plasma, or whole bOrdered By: Babak Garcia on 12-21-2024 GFR/1.73 sq M.predicted among non-blacks MDRD (S/P/Bld) [Vol rate/Area] 109 mL/min/{1.73_m2} Normal >60 [facility] Comment on above: mL/min/1.73m2 CKD-EP I Creatinine Equation (2020) Result Comment: mL/m in/1.73m2 CKD-EPI Creatinine Equation (2020) Performed By: #### L 500.2500, L100.0100 #### [facility] [address] [place], [address] Glucose Ql (U)Ordered By: Rory Garcia on 12-21-2024 Glucose (U) [Mass/Vol] 1000 mg/dL High Normal [facility] Hemoglobin measurementOrdere d By: Babak Garcia on 12-21-2024 Hemoglobin (Bld) [Mass/Vol] 12.7 g/dL Normal 12.0-15.0 [facility] Comment on above: Performed By: #### L 500.2500, L100.0100 #### [facility] [address] [place], [address] Immature granulocytes/100 WB C Auto (Bld)Ordered By: Babak Garcia on 12-21-2024 Immature granulocytes/100 WBC (Bld) 0.400 % 0.0-0.9 [facility] Comment on above: IG% - Immature Granu locytes (promyelocytes, myelocytes and metamyelocytes) > 1% indicates that a LEFT SHIFT is Present. Influenza virus A and B and SARS-CoV-2 (COVID-19) and Respiratory syncytial virus RNAOrdered By: Babak Garcia on 12-21-2024 SARS-CoV-2 (COVID-19) RNA LUIS M+probe Ql (Unsp spec) SARS-CoV-2 (COVID 19 PCR) Abnormal [facility] International normalized rat io (INR) calculationOrdered By: Babak Garcia on 12-21-2024 INR Coag (Bld) [Relative time] 1.0 {INR} [facility] Ketones Test strip Ql (U)Ord ered By: Babak Garcia on 12-21-2024 Ketones Ql (U) Negative Negative [facility] L499.0042on 12-21-2024 Trop T High Sen 7 ng/L Normal <=14 [facility] Comment on above: Performed By: #### L 500.2500, L100.0100 #### [facility] [address] [place], [address] L499.0043on 12-21-2024 Trop T High Sen Normal <=14 [facility] Comment on above: Result Comment: Canc elled via OM: Order cancelled - Patient discharged Performed By: #### L 500.2500, L100.0100 #### [facility] [address] [place], [address] L501.4021on 12-21-2024 Trop T High Sen 7 ng/L Normal <=14 [facility] Comment on above: Performed By: #### L 100.0100 #### [facility] [address] [place], [address] L503.7505on 12-21-2024 proBNP < 36 Normal <=900 [facility] Comment on above: Result Comment: Hear t Failure Unlikely: < 300 pg/mL Heart Failure Likely < 50 Years: > 450 pg/mL 50-75 Years: > 900 pg/mL >75 Years: > 1800 pg/mL Performed By: #### L 500.2500, L100.0100 #### [facility] [address] [place], [address] Lactic acid measurementOrder ed By: Babak Garcia on 12-21-2024 Lactate [Moles/Vol] 1.4 mmol/L Normal 0.0-2.0 [facility] Comment on above: Order Comment: Y Performed By: #### L 500.2500, L100.0100 #### [facility] [address] [place], [address] Lymphocytes Auto (Unsp spec) [#/Vol]Ordered By: Babak Garcia on 12-21-2024 Lymphocytes (Bld) [#/Vol] 1.06 10*3/uL 0.83-4.51 [facility] M100.678on 12-21-2024 M100.678 Copy of report sent to Infection Control Printer [id number] 12/21/24 0936 SELENA. SARS-CoV-2 (COVID 19) A Positive A INFLUENZA A Negative INFLUENZA B Negative RSV PCR Negative SARS-CoV-2 (COVID 19 PCR) Normal [facility] Comment on above: Performed By: #### M 100.678 #### [facility] [address] [place], [address] MCV (mean corpuscular volume ) determinationOrdered By: Babak Garcia on 12-21-2024 MCV (RBC) [Entitic vol] 88.6 fL Normal 81-99 [facility] Comment on above: Performed By: #### L 500.2500, L100.0100 #### [facility] [address] [place], [address] Mean corpuscular hemoglobin (MCH) determinationOrdered By: Babak Garcia on 12-21-2024 MCH (RBC) [Entitic mass] 29.5 pg Normal 27.0-32.0 [facility] Comment on above: Performed By: #### L 500.2500, L100.0100 #### [facility] [address] [place], [address] Mean corpuscular hemoglobin concentration (MCHC) determinationOrdered By: Babak Garcia on 12-21-2024 MCHC (RBC) [Mass/Vol] 33.3 g/dL Normal 32-36 [facility] Comment on above: Performed By: #### L 500.2500, L100.0100 #### [facility] [address] [place], [place], [address] Mean platelet volume determi nationOrdered By: Babak Garcia on 12-21-2024 Platelet mean volume (Bld) [Entitic vol] 9.4 fL Normal 6.2-12.0 [facility] Comment on above: Performed By: #### L 500.2500, L100.0100 #### [facility] [address] [place], [place], [address] Microscopic analysis of urin e for red blood cells (RBC)Ordered By: Babak Garcia on 12-21-2024 Microscopic analysis of urine for red blood cells (RBC) 0 SEEN /hpf 0-5 [facility] Urine RBC 0 SEEN /hpf 0-5 [facility] Monocyte percentageOrdered B y: Babak Garcia on 12-21-2024 Monocytes/100 WBC (Bld) 4.7 % Normal 0-10 [facility] Comment on above: Performed By: #### L 500.2500, L100.0100 #### [facility] [address] [place], [place], [address] Mucus LM Ql (Urine sed)Order ed By: Babak Garcia on 12-21-2024 Mucus Ql (Urine sed) 0 SEEN /hpf [facility] Neutrophil percentageOrdered By: Babak Garcia on 12-21-2024 Neutrophils/100 WBC (Bld) 86.0 % High 47-70 [facility] Comment on above: Performed By: #### L 500.2500, L100.0100 #### [facility] [address] [place], [place], [id number] Nitrite Test strip Ql (U)Ord ered By: Babak Garcia on 12-21-2024 Nitrite Ql (U) Negative Negative [facility] No Panel InformationOrdered By: Babak Garcia on 12-21-2024 Troponin T High Sensitivity 7 ng/L <14 [facility] DD-IzlD-Chje Natriuretic Peptide II < 36 pg/mL <900 [facility] Comment on above: Heart Failure Unlike ly: < 300 pg/mLHeart Failure Likely< 50 Years: > 450 pg/mL50-75 Years: > 900 pg/mL>75 Years: > 1800 pg/mL Nucleated red blood cell per centageOrdered By: Babak Garcia on 12-21-2024 Nucleated RBC/100 WBC (Bld) [Ratio] 0 % 0-5 [facility] Partial Thromboplast Timeon 12-21-2024 aPTT Coag (Bld) [Time] 35.4 s Normal 24.1-36.2 [facility] Comment on above: Performed By: #### L 100.0100 #### [facility] [address] [place], [address] Platelet countOrdered By: Rory Garcia on 12-21-2024 Platelets (Bld) [#/Vol] 186 10*3/uL Normal 150-450 [facility] Comment on above: Performed By: #### L 500.2500, L100.0100 #### [facility] [address] [place], [address] Potassium measurement (mass/ volume)Ordered By: Babak Garcia on 12-21-2024 Potassium [Moles/Vol] 4.0 mmol/L Normal 3.3-5.1 [facility] Comment on above: Hemolysis present, R esults could be affected. Result Comment: Hemo lysis present, Results??could be affected. ?? Performed By: #### L 500.2500, L100.0100 #### [facility] [address] [place], [address] Potassium (Unsp spec) [Mass/Vol] 4.0 mmol/L 3.3-5.1 [facility] Comment on above: Hemolysis present, R esults could be affected. Protein Test strip Ql (U)Ord ered By: Babak Garcia on 12-21-2024 Protein Ql (U) 15 mg/dl High Negative [facility] Prothrombin Time w/INRon INR Coag (PPP) [Relative time] 1.0 {INR} Normal [facility] Comment on above: Performed By: #### L 100.0100 #### [facility] [address] [place], [address] PT Coag (PPP) [Time] 13.0 s Normal 11.7-14.9 [facility] Comment on above: Performed By: #### L 100.0100 #### [facility] [address] [place], [address] Prothrombin timeOrdered By: Babak Garcia on 12-21-2024 PT Coag (PPP) [Time] 13.0 s 11.7-14.9 [facility] Serum creatinine measurement (mass/volume)Ordered By: Babak Garcia on 12-21-2024 Creatinine [Mass/Vol] 0.46 mg/dL Low 0.70-1.20 [facility] Comment on above: Performed By: #### L 500.2500, L100.0100 #### [facility] [address] [place], [address] Serum globulin measurementOr dered By: Babak Garcia on 12-21-2024 Globulin (S) [Mass/Vol] 2.6 g/dL Normal 2.2-4.2 [facility] Comment on above: Performed By: #### L 500.2500, L100.0100 #### [facility] [address] [place], [address] Serum glucose measurement (m ass/volume)Ordered By: Babak Garcia on 12-21-2024 Glucose [Mass/Vol] 124 mg/dL High 70-99 [facility] Comment on above: Performed By: #### L 500.2500, L100.0100 #### [facility] [address] [place], [address] Serum or plasma alanine angulo otransferase (ALT) measurementOrdered By: Babak Garcia on 12-21-2024 ALT [Catalytic activity/Vol] 33 U/L Normal <=34 [facility] Comment on above: Performed By: #### L 500.2500, L100.0100 #### [facility] [address] [place], [address] Serum or plasma albumin lawrence urement (mass/volume)Ordered By: Babak Garcia on 12-21-2024 Albumin [Mass/Vol] 3.7 g/dL Normal 3.4-4.8 [facility] Comment on above: Performed By: #### L 500.2500, L100.0100 #### [facility] [address] [place], [address] Serum or plasma albumin/glob ulin mass ratioOrdered By: Babak Garcia on 12-21-2024 Albumin/Globulin [Mass ratio] 1.4 {ratio} Normal 0.9-2.4 [facility] Comment on above: Performed By: #### L 500.2500, L100.0100 #### [facility] [address] [place], [address] Serum or plasma alkaline jakob sphatase measurementOrdered By: Babak Garcia on 12-21-2024 ALP [Catalytic activity/Vol] 108 U/L High 35-104 [facility] Serum or plasma calcium lawrence urement (mass/volume)Ordered By: Babak Garcia on 12-21-2024 Calcium [Mass/Vol] 8.1 mg/dL Normal 7.6-11.0 [facility] Comment on above: Performed By: #### L 500.2500, L100.0100 #### [facility] [address] [place], [address] Serum or plasma urea nitroge n measurement (mass/volume)Ordered By: Babak Garcia on 12-21-2024 Urea nitrogen [Mass/Vol] 9 mg/dL Normal 4-19 [facility] Comment on above: Performed By: #### L 500.2500, L100.0100 #### [facility] [address] [place], [address] Sodium levelOrdered By: Juma Garcia on 12-21-2024 Sodium [Moles/Vol] 135 mmol/L Normal 133-145 [facility] Comment on above: Performed By: #### L 500.2500, L100.0100 #### [facility] [address] [place], [address] Squamous epithelial cells de tection in urine sediment by light microscopyOrdered By: Babak Garcia on 12-21-2024 Epithelial cells.squamous LM Ql (Urine sed) 0 SEEN /hpf - [facility] Total proteinOrdered By: Rogelio Garcia on 12-21-2024 Protein [Mass/Vol] 6.3 g/dL 5.9-8.4 [facility] Troponin T.cardiac High sens itivity method [Mass/Vol]Ordered By: Babak Garcia on 12-21-2024 Troponin T High Sensitivity 2 Hour 7 ng/L <14 [facility] Troponin T.cardiac [Mass/vol ume] in Serum or Plasma by High sensitivity methodOrdered By: Babak Garcia on 12-21-2024 Troponin T.cardiac High sensitivity method [Mass/Vol] 7 ng/L <14 [facility] Urinalysis, Completeon 12-21 RBC 0 SEEN Normal 0-5 [facility] Comment on above: Order Comment: DARVIN CTOR TO SPECIFY Performed By: #### L 100.0100 #### [facility] [address] [place], [address] BACTERIA 0 SEEN Normal None Seen [facility] Comment on above: Order Comment: DARVIN CTOR TO SPECIFY Performed By: #### L 100.0100 #### [facility] [address] [place], [address] EPI,SQUAMOUS 0 SEEN Normal 5-10 [facility] Comment on above: Order Comment: DARVIN CTOR TO SPECIFY Performed By: #### L 100.0100 #### [facility] [address] [place], [address] Mucus Ql (Urine sed) 0 SEEN Normal [facility] Comment on above: Order Comment: DARVIN CTOR TO SPECIFY Performed By: #### L 100.0100 #### [facility] [address] [place], [address] WBC 0 SEEN Normal 0-5 [facility] Comment on above: Order Comment: DARVIN CTOR TO SPECIFY Performed By: #### L 100.0100 #### [facility] [address] [place], [place], [address] Urine blood detectionOrdered By: Babak Garcia on 12-21-2024 Urine Occult Blood Negative Negative [facility] Urine clarityOrdered By: Rogelio Garcia on 12-21-2024 Clarity (U) Clear Clear [facility] Urine color determinationOrd ered By: Babak Garcia on 12-21-2024 Color (U) Yellow Yellow [facility] Urine cultureOrdered By: Rogelio Garcia on 12-21-2024 Bacteria identified Cx Nom (U) Mixed Gram Pos & Gram Neg Org Abnormal [facility] Urine glucose detectionOrder ed By: Babak Garcia on 12-21-2024 Glucose Ql (U) 1000 mg/dl High Normal [facility] Urine leukocyte esterase det ection by dipstickOrdered By: Babak Garcia on 12-21-2024 Leukocyte esterase Test strip Ql (U) Negative Negative [facility] Urine pHOrdered By: Babak davidson on 12-21-2024 pH (U) 6.5 [pH] 5.0 - 8.0 [facility] Urine sediment bacteria coun t by microscopy (number/high power field)Ordered By: Babak Garcia on 12-21-2024 Bacteria LM.HPF (Urine sed) [#/Area] 0 /[HPF] None Seen [facility] Urine specific gravity measu rementOrdered By: Babak Garcia on 12-21-2024 Specific gravity (U) [Rel density] 1.010 1.002-1.030 [facility] Urine urobilinogen measureme ntOrdered By: Babak Garcia on 12-21-2024 Urobilinogen Ql (U) Normal mg/dl Normal [facility] Urobilinogen Ql (U)Ordered B y: Babak Salmoner on 12-21-2024 Urine Urobilinogen Normal mg/dl Normal [facility] White blood cell (WBC) count Ordered By: Babak Garcia on 12-21-2024 WBC (Bld) [#/Vol] 12.3 10*3/uL High 4.4-11.0 [facility] Comment on above: Performed By: #### L 500.2500, L100.0100 #### [facility] [address] [place], [address] White blood cell countOrdere d By: Babak Garcia on 12-21-2024 Urine WBC 0 SEEN /hpf 0-5 [facility] White blood cell count 0 SEEN /hpf 0-5 [facility] aPTT Coag (PPP) [Time]Ordere d By: Babak Garcia on 12-21-2024 aPTT Coag (Bld) [Time] 35.4 s 24.1-36.2 [facility] Absolute lymphocyte countOrd ered By: Lorraine Springer on 12-08-2024 Lymphocytes Auto (Unsp spec) [#/Vol] 2.50 10*3/uL 0.83-4.51 [facility] Absolute neutrophil countOrd ered By: Lorraine Springer on 12-08-2024 Neutrophils (Bld) [#/Vol] 6.5 10*3/uL 2.0-7.7 [facility] Automated lymphocyte count a s percentage of total leukocytesOrdered By: Lorraine Springer on 12-08-2024 Lymphocytes/100 WBC Auto (Unsp spec) 25.5 % 19-41 [facility] Basophil percentageOrdered B y: Lorraine Springer on 12-08-2024 Basophils/100 WBC (Bld) 0.6 % 0-1 [facility] CBC W/Diff, Automatedon 11-14 Absolute Lymph 2.50 X10 3/uL Normal 0.83-4.51 [facility] Comment on above: Performed By: #### L 500.2500, L100.0100 #### [facility] [address] [place], [address] Absolute Neut 6.5 X10 3/uL Normal 2.0-7.7 [facility] Comment on above: Performed By: #### L 500.2500, L100.0100 #### [facility] [address] [place], [address] Basophils/100 WBC (Bld) 0.6 % Normal 0-1 [facility] Comment on above: Performed By: #### L 500.2500, L100.0100 #### [facility] [address] [place], [address] Eosinophils/100 WBC (Bld) 0.2 % Normal 0-5 [facility] Comment on above: Performed By: #### L 500.2500, L100.0100 #### [facility] [address] [place], [address] Erythrocyte distribution width (RBC) [Ratio] 14.5 % Normal 11.6-14.6 [facility] Comment on above: Performed By: #### L 500.2500, L100.0100 #### [facility] [address] [place], [address] Hematocrit (Bld) [Volume fraction] 41.7 % Normal 37-47 [facility] Comment on above: Performed By: #### L 500.2500, L100.0100 #### [facility] [address] [place], [address] Hemoglobin (Bld) [Mass/Vol] 13.7 g/dL Normal 12.0-15.0 [facility] Comment on above: Performed By: #### L 500.2500, L100.0100 #### [facility] [address] [place], [address] IG% 0.500 Normal 0.0-0.9 [facility] Comment on above: Result Comment: IG% - Immature Granulocytes (promyelocytes, myelocytes and metamyelocytes) > 1% indicates that a LEFT SHIFT is Present. Performed By: #### L 500.2500, L100.0100 #### [facility] [address] [place], [address] Lymphocytes/100 WBC (Bld) 25.5 % Normal 19-41 [facility] Comment on above: Performed By: #### L 500.2500, L100.0100 #### [facility] [address] [place], [address] MCH (RBC) [Entitic mass] 29.3 pg Normal 27.0-32.0 [facility] Comment on above: Performed By: #### L 500.2500, L100.0100 #### [facility] [address] [place], [address] MCHC (RBC) [Mass/Vol] 32.9 g/dL Normal 32-36 [facility] Comment on above: Performed By: #### L 500.2500, L100.0100 #### [facility] [address] [place], [address] MCV (RBC) [Entitic vol] 89.3 fL Normal 81-99 [facility] Comment on above: Performed By: #### L 500.2500, L100.0100 #### [facility] [address] [place], [address] Monocytes/100 WBC (Bld) 7.0 % Normal 0-10 [facility] Comment on above: Performed By: #### L 500.2500, L100.0100 #### [facility] [address] [place], [address] Neutrophils/100 WBC (Bld) 66.2 % Normal 47-70 [facility] Comment on above: Performed By: #### L 500.2500, L100.0100 #### [facility] [address] [place], [address] Nucleated RBC (Bld) [#/Vol] 0 10*3/uL Normal 0-5 [facility] Comment on above: Performed By: #### L 500.2500, L100.0100 #### [facility] [address] [place], [address] Platelet mean volume (Bld) [Entitic vol] 9.5 fL Normal 6.2-12.0 [facility] Comment on above: Performed By: #### L 500.2500, L100.0100 #### [facility] [address] [place], [address] Platelets (Bld) [#/Vol] 225 10*3/uL Normal 150-450 [facility] Comment on above: Performed By: #### L 500.2500, L100.0100 #### [facility] [address] [place], [address] RBC (Bld) [#/Vol] 4.67 10*6/uL Normal 4.2-5.4 [facility] Comment on above: Performed By: #### L 500.2500, L100.0100 #### [facility] [address] [place], [address] RDW SD 46.8 fl High 35.1-43.9 [facility] Comment on above: Performed By: #### L 500.2500, L100.0100 #### [facility] [address] [place], [address] WBC (Bld) [#/Vol] 9.8 10*3/uL Normal 4.4-11.0 [facility] Comment on above: Performed By: #### L 500.2500, L100.0100 #### [facility] [place], [address] Eosinophil percentageOrdered By: Lorraine Springer on 12-08-2024 Eosinophils/100 WBC (Bld) 0.2 % 0-5 [facility] Erythrocyte distribution wid th ratioOrdered By: Lorraine Springer on 12-08-2024 Erythrocyte distribution width (RBC) [Ratio] 14.5 % 11.6-14.6 [facility] Erythrocyte distribution wid th standard deviationOrdered By: Lorraine Springer on 12-08-2024 Erythrocyte distribution width (RBC) [Entitic vol] 46.8 fL High 35.1-43.9 [facility] Erythrocyte distribution width (RBC) [Ratio] 46.8 fl High 35.1-43.9 [facility] Hematocrit Auto (Bld) [Volum e fraction]Ordered By: Lorraine Springer on 12-08-2024 Hematocrit (Bld) [Volume fraction] 41.7 % 37-47 [facility] Hemoglobin measurementOrdere d By: Lorraine Springer on 12-08-2024 Hemoglobin (Bld) [Mass/Vol] 13.7 g/dL 12.0-15.0 [facility] Immature granulocytes/100 WB C Auto (Bld)Ordered By: Lorraine Springer on 12-08-2024 Immature granulocytes/100 WBC (Bld) 0.500 % 0.0-0.9 [facility] Comment on above: IG% - Immature Granu locytes (promyelocytes, myelocytes and metamyelocytes) > 1% indicates that a LEFT SHIFT is Present. Lymphocytes Auto (Unsp spec) [#/Vol]Ordered By: Lorraine Springer on 12-08-2024 Lymphocytes (Bld) [#/Vol] 2.50 10*3/uL 0.83-4.51 [facility] Lymphocytes/100 WBC Auto (Un sp spec)Ordered By: Lorraine Springer on 12-08-2024 Lymphocytes/100 WBC (Bld) 25.5 % 19-41 [facility] MCV (mean corpuscular volume ) determinationOrdered By: Lorraine Springer on 12-08-2024 MCV (RBC) [Entitic vol] 89.3 fL 81-99 [facility] Mean corpuscular hemoglobin (MCH) determinationOrdered By: Lorraine Springer on 12-08-2024 MCH (RBC) [Entitic mass] 29.3 pg 27.0-32.0 [facility] Mean corpuscular hemoglobin concentration (MCHC) determinationOrdered By: Lorraine Springer on 12-08-2024 MCHC (RBC) [Mass/Vol] 32.9 g/dL 32-36 [facility] Mean platelet volume determi nationOrdered By: Lorraine Springer on 12-08-2024 Platelet mean volume (Bld) [Entitic vol] 9.5 fL 6.2-12.0 [facility] Monocyte percentageOrdered B y: Lorraine Springer on 12-08-2024 Monocytes/100 WBC (Bld) 7.0 % 0-10 [facility] Neutrophil percentageOrdered By: Lorarine Springer on 12-08-2024 Neutrophils/100 WBC (Bld) 66.2 % 47-70 [facility] Nucleated red blood cell per centageOrdered By: Lorraine Springer on 12-08-2024 Nucleated RBC/100 WBC (Bld) [Ratio] 0 % 0-5 [facility] Platelet countOrdered By: Anastacia Springer on 12-08-2024 Platelets (Bld) [#/Vol] 225 10*3/uL 150-450 [facility] RBC Auto (Bld) [#/Vol]Ordere d By: Lorraine Springer on 12-08-2024 RBC (Bld) [#/Vol] 4.67 10*6/uL 4.2-5.4 [facility] White blood cell (WBC) count Ordered By: Lorraine Springer on 12-08-2024 WBC (Bld) [#/Vol] 9.8 10*3/uL 4.4-11.0 [facility] CNOVon 12-07-2024 CNOV Normal [facility] XR CHEST 2V FRONTAL/LATon XR CHEST 2V FRONTAL/LAT Normal C [facility] XR Chest PA and Lateralon IMPRESSION: No acute radiographic abnormality. Indian Nanny: PSCB Transcribe Date/Time: Dec 07 2024 12:05P Dictated by : LISET MAY MD This examination was interpreted and the report reviewed and electronically signed by: LISET MAY MD on Dec 07 2024 12:06PM [facility] DIVISION OF [...] soft tissues: Unremarkable. DIVISION OF RADIOLOGY Provider, [facility] - 12/07/2024 * * *Final Report* [...] Unremarkable. IMPRESSION IMPRESSION: No acute radiographic abnormality. Indian Nanny: MILDRED Transcribe Date/Time: Dec 07 2024 12:05P Dictated by : LISET MAY MD This examination was interpreted and the report reviewed and electronically signed by: LISET MAY MD on Dec 07 2024 12:06PM [facility] Radiology Study observation (narrative) [facility] XR Chest PA and LateralOrder ed By: Ccf Provider on 12-07-[address] [facility] CNPNon 12-03-2024 CNPN Normal [facility] PVR ANK/LARRY/TOE ASHELY VAS LAB on 12-01-2024 PVR ANK/LARRY/TOE ASHELY VAS LAB Normal [facility] CNPNon 11-29-2024 CNPN Normal [facility] CBC W/Diff, Automatedon Absolute Lymph 1.87 X10 3/uL Normal 0.83-4.51 [facility] Comment on above: Performed By: #### L 100.0100 #### [facility] [address] [place], [address] Absolute Neut 11.3 X10 3/uL High 2.0-7.7 [facility] Comment on above: Performed By: #### L 100.0100 #### [facility] [address] [place], [address] Basophils/100 WBC (Bld) 0.5 % Normal 0-1 [facility] Comment on above: Performed By: #### L 100.0100 #### [facility] [address] [place], [address] Eosinophils/100 WBC (Bld) 0.1 % Normal 0-5 [facility] Comment on above: Performed By: #### L 100.0100 #### [facility] [address] [place], [address] Erythrocyte distribution width (RBC) [Ratio] 14.3 % Normal 11.6-14.6 [facility] Comment on above: Performed By: #### L 100.0100 #### [facility] [address] [place], [address] Hematocrit (Bld) [Volume fraction] 41.1 % Normal 37-47 [facility] Comment on above: Performed By: #### L 100.0100 #### [facility] [address] [place], [address] Hemoglobin (Bld) [Mass/Vol] 13.3 g/dL Normal 12.0-15.0 [facility] Comment on above: Performed By: #### L 100.0100 #### [facility] [address] [place], [address] IG% 3.400 High 0.0-0.9 [facility] Comment on above: Result Comment: IG% - Immature Granulocytes (promyelocytes, myelocytes and metamyelocytes) > 1% indicates that a LEFT SHIFT is Present. Performed By: #### L 100.0100 #### [facility] [address] [place], [address] Lymphocytes/100 WBC (Bld) 13.1 % Low 19-41 [facility] Comment on above: Performed By: #### L 100.0100 #### [facility] [address] [place], [address] MCH (RBC) [Entitic mass] 28.9 pg Normal 27.0-32.0 [facility] Comment on above: Performed By: #### L 100.0100 #### [facility] [address] [facility] [place], [address] MCHC (RBC) [Mass/Vol] 32.4 g/dL Normal 32-36 [facility] Comment on above: Performed By: #### L 100.0100 #### [facility] [address] [place], [address] MCV (RBC) [Entitic vol] 89.2 fL Normal 81-99 [facility] Comment on above: Performed By: #### L 100.0100 #### [facility] [address] [place], [address] Monocytes/100 WBC (Bld) 3.7 % Normal 0-10 [facility] Comment on above: Performed By: #### L 100.0100 #### [facility] [address] [place], [address] Neutrophils/100 WBC (Bld) 79.2 % High 47-70 [facility] Comment on above: Performed By: #### L 100.0100 #### [facility] [address] [place], [address] Nucleated RBC (Bld) [#/Vol] 0 10*3/uL Normal 0-5 [facility] Comment on above: Performed By: #### L 100.0100 #### [facility] [address] [place], [address] Platelet mean volume (Bld) [Entitic vol] 9.5 fL Normal 6.2-12.0 [facility] Comment on above: Performed By: #### L 100.0100 #### [facility] [address] [place], [address] Platelets (Bld) [#/Vol] 262 10*3/uL Normal 150-450 [facility] Comment on above: Performed By: #### L 100.0100 #### [facility] [address] [place], [address] RBC (Bld) [#/Vol] 4.61 10*6/uL Normal 4.2-5.4 [facility] Comment on above: Performed By: #### L 100.0100 #### [facility] [address] [place], [address] RDW SD 45.5 fl High 35.1-43.9 [facility] Comment on above: Performed By: #### L 100.0100 #### [facility] [address] [place], [address] WBC (Bld) [#/Vol] 14.3 10*3/uL High 4.4-11.0 [facility] Comment on above: Performed By: #### L 100.0100 #### [facility] [address] [place], [address] Culture, Blood (WB)on 2024 CUB Blood cultures x2, f rom two different sites No growth in 5 days. Normal [facility] Comment on above: Performed By: #### L 500.4050, L501.2450, L100.0500, L501.4020 #### [facility] [address] [place], [address] Vitamin D 1,25-Dihydroxyon 0 11-13-2024 VIT D 1,25 DIHY 106.0 pg/mL Abnormal 24.8-81.5 [facility] Comment on above: Result Comment: Perf ormed at: [facility] - [facility] [address] [id number] Clean Up Supervisor: Darcy Schulz MD, Phone: [phone] Performed By: #### L 100.0100 #### [facility] [address] [place], [address] BNP (brain natriuretic pepti de measurement)Ordered By: Hesham Rod on 11-12-2024 Natriuretic peptide B (Bld) [Mass/Vol] 24.1 pg/mL 0-100 [facility] BNP,B-Type NATRIURETIC PEPTI Yair 11-12-2024 Natriuretic peptide B (Bld) [Mass/Vol] 24.1 pg/mL Normal 0- [facility] Comment on above: Performed By: #### L 100.0100 #### [facility] Laboratory [address] [place], [address] Bedside Glucoseon 11-12-2024 FINGERSTICK GLU 213 mg/dL High 74-106 [facility] Comment on above: Result Comment: DANIEL COLMENARES OF PATIENT CARE PER NURSING PROTOCOL Performed By: #### L 500.2500, L100.0100 #### [facility] Laboratory [address] [place], [address] FINGERSTICK GLU 230 mg/dL High 74-106 [facility] Comment on above: Result Comment: DANIEL COLMENARES OF PATIENT CARE PER NURSING PROTOCOL Performed By: #### L 100.0100 #### [facility] Laboratory [address] [place], [address] Chest 1 View (Portable)on Chest 1 View (Portable) [facility] Imaging Services [address] [place] [address] Chest 1 View (Portable) MR#: [id number] Acct: [id number] Name: LOTTIEBRENDA Mayberry Rep #: [id number] : 1965 F 58 From: Adriano Mejia DO PCP: ESEQUIEL Headley Status: ADM IN Study: Chest 1 View (Portable) Date of Exam: 11/12/24 Exam# [id number] Ordering Dr: Hesham Amato DO PROCEDURE: CHEST [...] right lower lobe infiltrate . Reading Location: [facility] CC: ESEQUIEL Salmon; Dr. Hesham Amato DO Indian Nanny: Signed Normal [facility] Discharge Instructionon 10-15 Discharge Instruction [facility] Medical Records Department [address] [place] [address] Instructions for Home/Discharge Instructions 11/12/24 1016 MR#: [id number] Acct: [id number] Name: BRENDA LE Rep #: [id number] : 1965 58 From: Ana Lilia Lebron [...] Primary Care Provider: Shelia Salmon Consulting Providers: eHsham Amato Discharge Orders/Prescriptions Prescriptions: Continued cholecalciferol (vitamin [...] Salmon; Dr. Hesham Amato DO Signed Normal [facility] Glucose measurement at [facility] hospital deOrdered By: Ana Lilia Lebron on 11-12-2024 Bedside Glucose (Misc Panel) 213 mg/dL High 74-106 [facility] Comment on above: MANAGEMENT OF PATIEN T CARE PER NURSING PROTOCOL Bedside Glucoseon 11-11-2024 FINGERSTICK GLU 257 mg/dL High 74-106 [facility] Comment on above: Result Comment: DANIEL NEVESENT OF PATIENT CARE PER NURSING PROTOCOL Performed By: #### M 100.678 #### [facility] Laboratory [address] [place], [place], [address] FINGERSTICK GLU 315 mg/dL High -106 [facility] Comment on above: Result Comment: DANIEL GEMENT OF PATIENT CARE PER NURSING PROTOCOL Performed By: #### L 500.2500, L100.0100 #### [facility] Laboratory [address] [place], [address] FINGERSTICK GLU 205 mg/dL High 74-106 [facility] Comment on above: Result Comment: DANIEL GEMENT OF PATIENT CARE PER NURSING PROTOCOL Performed By: #### L 500.2500, L100.0100 #### [facility] Laboratory [address] [place], [address] FINGERSTICK GLU 247 mg/dL High 74-106 [facility] Comment on above: Result Comment: DANIEL GEMENT OF PATIENT CARE PER NURSING PROTOCOL Performed By: #### L 100.0100 #### [facility] Laboratory [address] [place], [address] FINGERSTICK GLU 178 mg/dL High -106 [facility] Comment on above: Result Comment: DANIEL GEMENT OF PATIENT CARE PER NURSING PROTOCOL Performed By: #### L 500.2500, L100.0100 #### [facility] Laboratory [address] [place], [address] M100.019on 11-11-2024 M100.019 Negative Normal [facility] Comment on above: Performed By: #### L 500.4050, L501.2450, L100.0500, L501.4020 #### [facility] Laboratory [address] [place], [address] [id number] By: Hesham Rod on 11-11-2024 SARS-CoV-2 (COVID-19) RNA LUIS M+probe Ql (Unsp spec) [facility] 1,25-dihydroxyvitamin D3 [Ma ss/Vol]Ordered By: Hesham Rod on 11-10-2024 Vitamin D 1,25-Dihydroxy 106.0 pg/mL High 24.8-81.5 [facility] Comment on above: Performed at: [address] [id number] Director: Darcy Schulz MD, Phone: [phone] Absolute neutrophil countOrd ered By: Hesham Rod on 11-10-2024 Neutrophils (Bld) [#/Vol] 8.7 10*3/uL High 2.0-7.7 [facility] Albumin to globulin ratioOrd ered By: Hesham Rod on 11-10-2024 Albumin/Globulin [Mass ratio] 0.7 {ratio} Low 0.9-2.4 [facility] Basophil percentageOrdered B y: Hesham Rod on 11-10-2024 Basophils/100 WBC (Bld) 0.2 % 0-1 [facility] Bedside Glucoseon 11-10-2024 FINGERSTICK GLU 195 mg/dL High [address] [place] [address] Comment on above: Result Comment: DANIEL GEMENT OF PATIENT CARE PER NURSING PROTOCOL Performed By: #### L 100.0100 #### [facility] Laboratory [address] [facility] [place] [address] FINGERSTICK GLU 245 mg/dL High [address] [place] [address] Comment on above: Result Comment: DANIEL GEMENT OF PATIENT CARE PER NURSING PROTOCOL Performed By: #### L 100.0100 #### [facility] Laboratory [address] [facility] [place] [address] FINGERSTICK GLU 278 mg/dL High [address] [place] [address] Comment on above: Result Comment: DANIEL GEMENT OF PATIENT CARE PER NURSING PROTOCOL Performed By: #### L 500.2500, L100.0100 #### [facility] Laboratory [address] [facility] [place] [address] FINGERSTICK GLU 192 mg/dL High [address] [place] [address] Comment on above: Result Comment: DANIEL GEMENT OF PATIENT CARE PER NURSING PROTOCOL Performed By: #### M 100.678 #### [facility] Laboratory [address] [facility] [place] [address] Bilirubin, totalOrdered By: Hesham Rod on 11-10-2024 Bilirubin [Mass/Vol] 0.50 mg/dL 0.20-1.00 [facility] Comment on above: Slight Lipemia, Resu lt may be falsely increased. For patients on eltrombopag therapy, use of Dimension [place] TBIL is not recommended. Blood urea nitrogen (BUN)/cr eatinine ratioOrdered By: Hesham Rod on 11-10-2024 Urea nitrogen/Creatinine [Mass ratio] 23.0 mg/mg High 10-20 [facility] CBC W/Diff, Automatedon 10-14 MCHC (RBC) [Mass/Vol] 32.0 g/dL Normal 32-36 [facility] Comment on above: Result Comment: H H CHNAGE Performed By: #### L 500.2500, L100.0100 #### [facility] Laboratory [address] [place], [address] Absolute Lymph 0.92 X10 3/uL Normal 0.83-4.51 [facility] Comment on above: Performed By: #### L 500.2500, L100.0100 #### [facility] Laboratory [address] [place], [address] Absolute Neut 8.7 X10 3/uL High 2.0-7.7 [facility] Comment on above: Performed By: #### L 500.2500, L100.0100 #### [facility] Laboratory [address] [place], [address] Basophils/100 WBC (Bld) 0.2 % Normal 0-1 [facility] Comment on above: Performed By: #### L 500.2500, L100.0100 #### [facility] Laboratory [address] [place], [address] Eosinophils/100 WBC (Bld) 0.0 % Normal 0-5 [facility] Comment on above: Performed By: #### L 500.2500, L100.0100 #### [facility] Laboratory [address] [place], [address] Erythrocyte distribution width (RBC) [Ratio] 14.3 % Normal 11.6-14.6 [facility] Comment on above: Performed By: #### L 500.2500, L100.0100 #### [facility] Laboratory [address] [place], [address] Hematocrit (Bld) [Volume fraction] 37.8 % Normal 37-47 [facility] Comment on above: Performed By: #### L 500.2500, L100.0100 #### [facility] Laboratory [address] [place], [address] Hemoglobin (Bld) [Mass/Vol] 12.1 g/dL Normal 12.0-15.0 [facility] Comment on above: Performed By: #### L 500.2500, L100.0100 #### [facility] Laboratory [address] [place], [address] IG% 0.700 Normal 0.0-0.9 [facility] Comment on above: Result Comment: IG% - Immature Granulocytes (promyelocytes, myelocytes and metamyelocytes) > 1% indicates that a LEFT SHIFT is Present. Performed By: #### L 500.2500, L100.0100 #### [facility] Laboratory [address] [place], [address] Lymphocytes/100 WBC (Bld) 9.3 % Low 19-41 [facility] Comment on above: Performed By: #### L 500.2500, L100.0100 #### [facility] Laboratory [address] [place], [address] MCH (RBC) [Entitic mass] 28.6 pg Normal 27.0-32.0 [facility] Comment on above: Performed By: #### L 500.2500, L100.0100 #### [facility] Laboratory [address] [place], [address] MCV (RBC) [Entitic vol] 89.4 fL Normal 81-99 [facility] Comment on above: Performed By: #### L 500.2500, L100.0100 #### [facility] Laboratory [address] [place], [address] Monocytes/100 WBC (Bld) 1.6 % Normal 0-10 [facility] Comment on above: Performed By: #### L 500.2500, L100.0100 #### [facility] Laboratory [address] [place], [address] Neutrophils/100 WBC (Bld) 88.2 % High 47-70 [facility] Comment on above: Performed By: #### L 500.2500, L100.0100 #### [facility] Laboratory [address] [place], [address] Nucleated RBC (Bld) [#/Vol] 0 10*3/uL Normal 0-5 [facility] Comment on above: Performed By: #### L 500.2500, L100.0100 #### [facility] Laboratory [address] [place], [address] Platelet mean volume (Bld) [Entitic vol] 9.2 fL Normal 6.2-12.0 [facility] Comment on above: Performed By: #### L 500.2500, L100.0100 #### [facility] Laboratory [address] [place], [address] Platelets (Bld) [#/Vol] 223 10*3/uL Normal 150-450 [facility] Comment on above: Performed By: #### L 500.2500, L100.0100 #### [facility] Laboratory [address] [place], [address] RBC (Bld) [#/Vol] 4.23 10*6/uL Normal 4.2-5.4 [facility] Comment on above: Performed By: #### L 500.2500, L100.0100 #### [facility] Laboratory [address] [place], [address] RDW SD 46.2 fl High 35.1-43.9 [facility] Comment on above: Performed By: #### L 500.2500, L100.0100 #### [facility] Laboratory [address] [place], [address] WBC (Bld) [#/Vol] 9.9 10*3/uL Normal 4.4-11.0 [facility] Comment on above: Performed By: #### L 500.2500, L100.0100 #### [facility] Laboratory [address] [place], [address] CNPNon 11-10-2024 CNPN Normal [facility] Carbon dioxide measurementOr dered By: Hesham Rod on 11-10-2024 CO2 [Moles/Vol] 22.0 mmol/L 21.0-32.0 [facility] Comment on above: Slight Lipemia, Resu lt may be falsely increased. Chloride measurementOrdered By: Hesham Rod on 11-10-2024 Chloride [Moles/Vol] 104 mmol/L 98-107 [facility] Comprehensive Metabolic Prof ilon 11-10-2024 Albumin [Mass/Vol] 3.1 g/dL Low 3.2-5.0 [facility] Comment on above: Performed By: #### L 500.2500, L100.0100 #### [facility] Laboratory [address] [place], [address] Albumin/Globulin [Mass ratio] 0.7 {ratio} Low 0.9-2.4 [facility] Comment on above: Performed By: #### L 500.2500, L100.0100 #### [facility] Laboratory [address] [place], [address] ALK P 159 U/L High 45-117 [facility] Comment on above: Performed By: #### L 500.2500, L100.0100 #### [facility] Laboratory [address] [place], [address] ALT [Catalytic activity/Vol] 90 U/L High 13-56 [facility] Comment on above: Result Comment: Slig ht Lipemia, Result may be falsely increased. Performed By: #### L 500.2500, L100.0100 #### [facility] Laboratory [address] [place], [address] AST [Catalytic activity/Vol] 50 U/L High 15-37 [facility] Comment on above: Result Comment: Slig ht Lipemia, Result may be falsely increased. Performed By: #### L 500.2500, L100.0100 #### [facility] Laboratory [address] [place], [address] Bilirubin [Mass/Vol] 0.50 mg/dL Normal 0.20-1.00 [facility] Comment on above: Result Comment: Slig ht Lipemia, Result may be falsely increased. For patients on eltrombopag therapy, use of Dimension [place] TBIL is not recommended. Performed By: #### L 500.2500, L100.0100 #### [facility] Laboratory [address] [place], [address] BUN/CRE 23.0 RATIO High 10-20 [facility] Comment on above: Performed By: #### L 500.2500, L100.0100 #### [facility] Laboratory [address] [place], [address] CA,Total 8.5 mg/dL Normal 8.5-10.1 [facility] Comment on above: Result Comment: Slig ht Lipemia, Result may be falsely increased. Performed By: #### L 500.2500, L100.0100 #### [facility] Laboratory [address] [place], [address] Chloride [Moles/Vol] 104 mmol/L Normal 98-107 [facility] Comment on above: Performed By: #### L 500.2500, L100.0100 #### [facility] Laboratory [address] [place], [address] CO2 [Moles/Vol] 22.0 mmol/L Normal 21.0-32.0 [facility] Comment on above: Result Comment: Slig ht Lipemia, Result may be falsely increased. Performed By: #### L 500.2500, L100.0100 #### [facility] Laboratory [address] [place], [address] Creatinine [Mass/Vol] 0.43 mg/dL Low 0.55-1.02 [facility] Comment on above: Result Comment: Slig ht Lipemia, Result may be falsely increased. The validity of the calculated GFR GFRAA in patients over 70 years has not been determined. Clinical correlation is essential. Performed By: #### L 500.2500, L100.0100 #### [facility] Laboratory [address] [place], [address] ECRCL 135.92 ml/min Normal [facility] Comment on above: Performed By: #### L 500.2500, L100.0100 #### [facility] Laboratory [address] [place], [address] EST GFR - AA 190 mL/min Normal >60 [facility] Comment on above: Result Comment: Afri can [place] GFR Calc Performed By: #### L 500.2500, L100.0100 #### [facility] Laboratory [address] [place], [address] GAP 10 Normal 5-15 [facility] Comment on above: Performed By: #### L 500.2500, L100.0100 #### [facility] Laboratory [address] [place], [address] GFR/1.73 sq M.predicted among non-blacks MDRD (S/P/Bld) [Vol rate/Area] 157 mL/min/{1.73_m2} Normal >60 [facility] Comment on above: Result Comment: Non- GFR Calc Performed By: #### L 500.2500, L100.0100 #### [facility] Laboratory [address] [place], [address] Globulin (S) [Mass/Vol] 4.3 g/dL High 2.2-4.2 [facility] Comment on above: Performed By: #### L 500.2500, L100.0100 #### [facility] Laboratory [address] [place], [address] Glucose [Mass/Vol] 179 mg/dL High 74-106 [facility] Comment on above: Result Comment: Slig ht Lipemia, Result may be falsely increased. Fasting Glucose result greater than or equal to 126 mg/dL suggests DIABETES MELLITUS per A.D.A. criteria. Performed By: #### L 500.2500, L100.0100 #### [facility] Laboratory [address] [place], [address] Potassium [Moles/Vol] 3.8 mmol/L Normal 3.5-5.1 [facility] Comment on above: Result Comment: Slig ht Lipemia, Result may be falsely increased. Performed By: #### L 500.2500, L100.0100 #### [facility] Laboratory [address] [place], [address] Sodium [Moles/Vol] 136 mmol/L Normal 136-145 [facility] Comment on above: Performed By: #### L 500.2500, L100.0100 #### [facility] Laboratory [address] [place], [address] T PROT 7.4 g/dL Normal 6.4-8.2 [facility] Comment on above: Result Comment: Slig ht Lipemia, Result may be falsely increased. Performed By: #### L 500.2500, L100.0100 #### [facility] Laboratory [address] [place], [address] Urea nitrogen [Mass/Vol] 10 mg/dL Normal 7-18 [facility] Comment on above: Result Comment: Slig ht Lipemia, Result may be falsely increased. Performed By: #### L 500.2500, L100.0100 #### [facility] [place], [address] Eosinophil percentageOrdered By: Hesham Rod on 11-10-2024 Eosinophils/100 WBC (Bld) 0.0 % 0-5 [facility] Erythrocyte distribution wid th ratioOrdered By: Hesham Rod on 11-10-2024 Erythrocyte distribution width (RBC) [Ratio] 14.3 % 11.6-14.6 [facility] Erythrocyte distribution wid th standard deviationOrdered By: Hesham Rod on 11-10-2024 Erythrocyte distribution width (RBC) [Entitic vol] 46.2 fL High 35.1-43.9 [facility] Estimated glomerular filtrat ion rate (GFR) AmericanOrdered By: Hesham Rod on 11-10-2024 Estimated GFR (MDRD) Amer 190 mL/min >60 [facility] Comment on above: GFR Calc Estimation of creatinine epi aranceOrdered By: Hesham Rod on 11-10-2024 Estimated Creatinine Clearance Calc 135.92 ml/min [facility] Glomerular filtration rate ( GFR) estimationOrdered By: Hesham Rod on 11-10-2024 Estimated GFR (MDRD) Non-Af Amer 157 mL/min >60 [facility] Comment on above: Non- GFR Calc Glucose measurementOrdered B y: Hesham Rod on 11-10-2024 Glucose [Mass/Vol] 179 mg/dL High 74-106 [facility] Comment on above: Slight Lipemia, Resu lt may be falsely increased.Fasting Glucose result greater than or equal to 126 mg/dL suggests DIABETES MELLITUS per A.D.A. criteria. Hematocrit Auto (Bld) [Volum e fraction]Ordered By: Hesham Rod on 11-10-2024 Hematocrit (Bld) [Volume fraction] 37.8 % 37-47 [facility] Hemoglobin A1con 11-10-2024 HbA1c (Bld) [Mass fraction] 6.8 % High 3.8-5.6 [facility] Comment on above: Result Comment: Norm al < 5.7 % Prediabetic 5.7 - 6.4 % Diabetic >or= 6.5 % Please note range changes. Performed By: #### L 100.0100 #### [facility] Laboratory [address] [place], [address] Hemoglobin A1c percentageOrd ered By: Hesham Rod on 11-10-2024 HbA1c (Bld) [Mass fraction] 6.8 % High 3.8-5.6 [facility] Comment on above: Normal < 5.7 % Predi abetic 5.7 - 6.4 % Diabetic >or= 6.5 % Please note range changes. Hemoglobin measurementOrdere d By: Hesham Rod on 11-10-2024 Hemoglobin (Bld) [Mass/Vol] 12.1 g/dL 12.0-15.0 [facility] Immature granulocytes/100 WB C Auto (Bld)Ordered By: Hesham Rod on 11-10-2024 Immature granulocytes/100 WBC (Bld) 0.700 % 0.0-0.9 [facility] Comment on above: IG% - Immature Granu locytes (promyelocytes, myelocytes and metamyelocytes) > 1% indicates that a LEFT SHIFT is Present. L. pneumophila Ag Ql (U)Orde red By: Hesham Rod on 11-10-2024 Legionella Antigen [facility] Laboratory - Chemistry and C hemistry - challengeOrdered By: Hesham Rod on 11-10-2024 AST [Catalytic activity/Vol] 50 U/L High 15-37 [facility] Comment on above: Slight Lipemia, Resu lt may be falsely increased. Legionella Antigen Urineon 0 11-10-2024 LEGU URINE, CLEAN CATCH Legionella Antigen result interpretation: L pneumo Ag Ur Ql Negative Presumptive negative for Legionella pneumophila serogroup 1 antigen in urine, suggesting no recent or current infection. Legionella Ag, Urine Negative (See interpretation below) Normal [facility] Comment on above: Performed By: #### M 100.678 #### [facility] Laboratory [address] [place], [address] Lymphocytes Auto (Unsp spec) [#/Vol]Ordered By: Hesham Rod on 11-10-2024 Lymphocytes (Bld) [#/Vol] 0.92 10*3/uL 0.83-4.51 [facility] Lymphocytes/100 WBC Auto (Un sp spec)Ordered By: Hesham Rod on 11-10-2024 Lymphocytes/100 WBC (Bld) 9.3 % Low 19-41 [facility] M R Staph Aureus DNA by PCRo n 11-10-2024 MRSA DNA ASSAY Negative Normal Negative [facility] Comment on above: Performed By: #### M 100.678 #### [facility] Laboratory [address] [place], [place], [address] MCV (mean corpuscular volume ) determinationOrdered By: Hesham Rod on 11-10-2024 MCV (RBC) [Entitic vol] 89.4 fL 81-99 [facility] MRSA detection PCROrdered By : Hesham Rod on 11-10-2024 Methicillin-Resist S.aureus DNA PCR Negative Negative [facility] Magnesiumon 11-10-2024 Magnesium [Mass/Vol] 2.2 mg/dL Normal 1.6-2.6 [facility] Comment on above: Result Comment: Slig ht Lipemia, Result may be falsely increased. Performed By: #### L 500.2500, L100.0100 #### [facility] Laboratory [address] [place], [place], [address] Magnesium measurementOrdered By: Hesham Rod on 11-10-2024 Magnesium [Mass/Vol] 2.2 mg/dL 1.6-2.6 [facility] Comment on above: Slight Lipemia, Resu lt may be falsely increased. Mean corpuscular hemoglobin (MCH) determinationOrdered By: Hesham Rod on 11-10-2024 MCH (RBC) [Entitic mass] 28.6 pg 27.0-32.0 [facility] Mean corpuscular hemoglobin concentration (MCHC) determinationOrdered By: Hesham Rod on 11-10-2024 MCHC (RBC) [Mass/Vol] 32.0 g/dL 32-36 [facility] Comment on above: Delta: 33.7 on 11/09-1907H&H CHNAGE Mean platelet volume determi nationOrdered By: Hesham Rod on 11-10-2024 Platelet mean volume (Bld) [Entitic vol] 9.2 fL 6.2-12.0 [facility] Monocyte percentageOrdered B y: Hesham Rod on 11-10-2024 Monocytes/100 WBC (Bld) 1.6 % 0-10 [facility] Neutrophil percentageOrdered By: Hesham Rod on 11-10-2024 Neutrophils/100 WBC (Bld) 88.2 % High 47-70 [facility] Nucleated red blood cell per centageOrdered By: Hesham Rod on 11-10-2024 Nucleated RBC/100 WBC (Bld) [Ratio] 0 % 0-5 [facility] Osmolality (U) [Osmolality]O rdered By: Hesham Rod on 11-10-2024 Urine Osmolality 201 mOsm/KG >50 [facility] Comment on above: Normal Urine Referen ce Ranges Random: 50 - 1200 mOsm/kg H20 depending on fluid intake Random: >850 mOsm/kg after 12 hour fluid restriction 24 hour: ~300 - 900 mOsm/kg H2O Osmolality, Serumon 11-10-19 25 OSMOLALITY,SER 283 mOsm/KG Normal 275-295 [facility] Comment on above: Performed By: #### L 100.0100 #### [facility] Laboratory [address], [place], [id number] Osmolality, Urineon 11-10-19 25 OSMOLALITY,UR 201 mOsm/KG Normal [facility] Comment on above: Result Comment: Normal Urine Reference Ranges Random: 50 - 1200 mOsm/kg H20 depending on fluid intake Random: >850 mOsm/kg after 12 hour fluid restriction 24 hour: 300 - 900 mOsm/kg H2O Performed By: #### M 100.678 #### [facility] Laboratory [address] [place], [place], [id number] Osmolality, serumOrdered By: Hesham Rod on 11-10-2024 Serum Osmolality 283 mOsm/KG 275-295 [facility] Phosphoruson 11-10-2024 Phosphate [Mass/Vol] 3.2 mg/dL Normal 2.5-4.9 [facility] Comment on above: Result Comment: Slig ht Lipemia, Result may be falsely increased. Performed By: #### L 500.2500, L100.0100 #### [facility] Laboratory [address] [facility] [place], [address] Phosphorus measurementOrdere d By: Hesham Rod on 11-10-2024 Phosphorus Level 3.2 mg/dL 2.5-4.9 [facility] Comment on above: Slight Lipemia, Resu lt may be falsely increased. Platelet countOrdered By: Carlos Rod on 11-10-2024 Platelets (Bld) [#/Vol] 223 10*3/uL 150-450 [facility] Potassium measurementOrdered By: Hesham Rod on 11-10-2024 Potassium [Moles/Vol] 3.8 mmol/L 3.5-5.1 [facility] Comment on above: Slight Lipemia, Resu lt may be falsely increased. RBC Auto (Bld) [#/Vol]Ordere d By: Hesham Rod on 11-10-2024 RBC (Bld) [#/Vol] 4.23 10*6/uL 4.2-5.4 [facility] RESPIRATORY PANEL MOLECULARo n 11-10-2024 RP [...] Not Detected RSV B Not Detected Normal [facility] Comment on above: Performed By: #### M 100.638 #### [facility] Laboratory [address] [facility] [place], [place], [id number] Respiratory pathogens DNA an d RNA panel LUIS M+probe (Resp)Ordered By: Hesham Rod on 11-10-2024 Respiratory Panel (PCR) [facility] Serum anion gap measurementO rdered By: Hesham Rod on 11-10-2024 Anion gap [Moles/Vol] 10 mmol/L 5-15 [facility] Serum globulin measurementOr dered By: Hesham Rod on 11-10-2024 Globulin (S) [Mass/Vol] 4.3 g/dL High 2.2-4.2 [facility] Serum or plasma alanine angulo otransferase (ALT) measurementOrdered By: Hesham Rod on 11-10-2024 ALT [Catalytic activity/Vol] 90 U/L High 13-56 [facility] Comment on above: Slight Lipemia, Resu lt may be falsely increased. Serum or plasma albumin lawrence urement (mass/volume)Ordered By: Hesham Rod on 11-10-2024 Albumin [Mass/Vol] 3.1 g/dL Low 3.2-5.0 [facility] Serum or plasma alkaline jakob sphatase measurementOrdered By: Hesham Rod on 11-10-2024 ALP [Catalytic activity/Vol] 159 U/L High 45-117 [facility] Serum or plasma calcium lawrence urement (mass/volume)Ordered By: Hesham Rod on 11-10-2024 Calcium [Mass/Vol] 8.5 mg/dL 8.5-10.1 [facility] Comment on above: Slight Lipemia, Resu lt may be falsely increased. Serum or plasma creatinine m easurement (mass/volume)Ordered By: Hesham Rod on 11-10-2024 Creatinine [Mass/Vol] 0.43 mg/dL Low 0.55-1.02 [facility] Comment on above: Slight Lipemia, Resu lt may be falsely increased.The validity of the calculated GFR & GFRAA in patients over 70 years has not been determined. Clinical correlation is essential. Serum or plasma urea nitroge n measurement (mass/volume)Ordered By: Hesham Rod on 11-10-2024 Urea nitrogen [Mass/Vol] 10 mg/dL 7-18 [facility] Comment on above: Slight Lipemia, Resu lt may be falsely increased. Sodium levelOrdered By: Bennie Rod on 11-10-2024 Sodium [Moles/Vol] 136 mmol/L 136-145 [facility] Strep pneumoniae Antig(UR,CS F)on 11-10-2024 STPAG URINE, CLEAN CATCH URINE INTERPRETATION Strep pneumoniae Antig(UR,CSF) Negative Urine Presumptive negative for pneumococcal pneumonia, suggesting no current or recent pneumococcal infection. Infection due to S pneumoniae cannot be ruled out since the antigen present in the sample may be below the detection limit of the test. Strep pneumo Test Negative URINE (See interpretation below) Normal [facility] Comment on above: Performed By: #### M 100.678 #### [facility] Laboratory [address] [place], [place], [address] Streptococcus pneumoniae ant igen assayOrdered By: Hesham Rod on 11-10-2024 Streptococcus pneumoniae Antigen (M [facility] TSH QnOrdered By: Hesham maynard on 11-10-2024 Thyroid Stimulating Hormone (TSH) 0.831 uIU/mL 0.358-3.740 [facility] Thyroid Stim Hormone (TSH)on 11-10-2024 TSH 0.831 uIU/mL Normal 0.358-3.740 [facility] Comment on above: Performed By: #### L 100.0100 #### [facility] Laboratory [address] [place], [place], [address] Total proteinOrdered By: Wes Rod on 11-10-2024 Protein [Mass/Vol] 7.4 g/dL 6.4-8.2 [facility] Comment on above: Slight Lipemia, Resu lt may be falsely increased. White blood cell (WBC) count Ordered By: Hesham Rod on 11-10-2024 WBC (Bld) [#/Vol] 9.9 10*3/uL 4.4-11.0 [facility] 12 Lead EKGon 11-09-2024 12 Lead EKG [facility] Cardiovascular Services [address] [place] [address] 12 Lead EKG 11/09/242024 MR#: [id number] Acct: [id number] Name: BRENDA LE Rep #: [id number] : 1965 58 From: Gary Bose MD Attending Dr: Dr. Ana Lilia Lebron, DO Status: A DM IN Ordering : Francisco Thompson DO Date: 11/09/24 Location: [facility]3 [...] Abnormal ECG Confirmed by TAMMY SANDERS, GLORIA ([id number]), magazine editor CRISTAL OTT ([id number]) on 11/11/2024 6:40:18 AM Referred By: Confirmed By: GLORIA BOSE MD 11/11/24 0640 Date Gary Bose MD CC: ESEQUIEL aSlmon; Dr. Francisco Thompson DO; Dr. Ana Lilia Lebron DO Signed Normal [facility] Basic Metabolic Profile (BMP )on 11-09-2024 BUN/CRE 25.0 RATIO High 10-20 [facility] Comment on above: Performed By: #### L 500.2500, L100.0100 #### [facility] Laboratory [address] [place], [address] CA,Total 9.2 mg/dL Normal 8.5-10.1 [facility] Comment on above: Performed By: #### L 500.2500, L100.0100 #### [facility] Laboratory [address] [place], [address] Chloride [Moles/Vol] 100 mmol/L Normal 98-107 [facility] Comment on above: Performed By: #### L 500.2500, L100.0100 #### [facility] Laboratory [address] [place], [address] CO2 [Moles/Vol] 21.0 mmol/L Normal 21.0-32.0 [facility] Comment on above: Performed By: #### L 500.2500, L100.0100 #### [facility] Laboratory [address] [place], [address] Creatinine [Mass/Vol] 0.56 mg/dL Normal 0.55-1.02 [facility] Comment on above: Result Comment: The validity of the calculated GFR GFRAA in patients over 70 years has not been determined. Clinical correlation is essential. Performed By: #### L 500.2500, L100.0100 #### [facility] Laboratory [address] [place], [address] ECRCL 105.16 ml/min Normal [facility] Comment on above: Performed By: #### L 500.2500, L100.0100 #### [facility] Laboratory [address] [place], [address] EST GFR - AA 142 mL/min Normal >60 [facility] Comment on above: Result Comment: Afri can [place] GFR Calc Performed By: #### L 500.2500, L100.0100 #### [facility] Laboratory [address] [place], [address] GAP 9 Normal 5-15 [facility] Comment on above: Performed By: #### L 500.2500, L100.0100 #### [facility] Laboratory [address] [place], [address] GFR/1.73 sq M.predicted among non-blacks MDRD (S/P/Bld) [Vol rate/Area] 117 mL/min/{1.73_m2} Normal >60 [facility] Comment on above: Result Comment: Non- GFR Calc Performed By: #### L 500.2500, L100.0100 #### [facility] Laboratory [address] [place], [address] Glucose [Mass/Vol] 164 mg/dL High 74-106 [facility] Comment on above: Result Comment: Fast ing Glucose result greater than or equal to 126 mg/dL suggests DIABETES MELLITUS per A.D.A. criteria. Performed By: #### L 500.2500, L100.0100 #### [facility] Laboratory [address] [place], [address] Potassium [Moles/Vol] 3.8 mmol/L Normal 3.5-5.1 [facility] Comment on above: Performed By: #### L 500.2500, L100.0100 #### [facility] Laboratory [address] [place], [address] Sodium [Moles/Vol] 130 mmol/L Low 136-145 [facility] Comment on above: Performed By: #### L 500.2500, L100.0100 #### [facility] Laboratory [address] [place], [address] Urea nitrogen [Mass/Vol] 14 mg/dL Normal 7-18 [facility] Comment on above: Performed By: #### L 500.2500, L100.0100 #### [facility] Laboratory [address] [place], [address] Bedside Glucoseon 11-09-2024 FINGERSTICK GLU 154 mg/dL High 74-106 [facility] Comment on above: Result Comment: DANIEL EDINSONENT OF PATIENT CARE PER NURSING PROTOCOL Performed By: #### L 500.4050, L501.2450, L100.0500, L501.4020 #### [facility] Laboratory [address] [place], [address] Bilirubin directOrdered By: Francisco Thompson on 11-09-2024 Bilirubin.direct [Mass/Vol] 0.28 mg/dL 0.00-0.30 [facility] Blood cultureOrdered By: Jovi Thompson on 11-09-2024 Bacteria identified Cx Nom (Bld) No growth in 5 days. [facility] CBC W/Diff, Automatedon 10-14 Absolute Lymph 1.89 X10 3/uL Normal 0.83-4.51 [facility] Comment on above: Performed By: #### L 500.2500, L100.0100 #### [facility] Laboratory [address] [place], [address] Absolute Neut 8.8 X10 3/uL High 2.0-7.7 [facility] Comment on above: Performed By: #### L 500.2500, L100.0100 #### [facility] Laboratory [address] [place], [address] Basophils/100 WBC (Bld) 0.5 % Normal 0-1 [facility] Comment on above: Performed By: #### L 500.2500, L100.0100 #### [facility] Laboratory [address] [place], [address] Eosinophils/100 WBC (Bld) 0.1 % Normal 0-5 [facility] Comment on above: Performed By: #### L 500.2500, L100.0100 #### [facility] Laboratory [address] [place], [address] Erythrocyte distribution width (RBC) [Ratio] 14.2 % Normal 11.6-14.6 [facility] Comment on above: Performed By: #### L 500.2500, L100.0100 #### [facility] Laboratory [address] [place], [address] Hematocrit (Bld) [Volume fraction] 39.8 % Normal 37-47 [facility] Comment on above: Performed By: #### L 500.2500, L100.0100 #### [facility] Laboratory [address] [place], [address] Hemoglobin (Bld) [Mass/Vol] 13.4 g/dL Normal 12.0-15.0 [facility] Comment on above: Performed By: #### L 500.2500, L100.0100 #### [facility] Laboratory [address] [place], [address] IG% 0.400 Normal 0.0-0.9 [facility] Comment on above: Result Comment: IG% - Immature Granulocytes (promyelocytes, myelocytes and metamyelocytes) > 1% indicates that a LEFT SHIFT is Present. Performed By: #### L 500.2500, L100.0100 #### [facility] Laboratory [address] [place], [address] Lymphocytes/100 WBC (Bld) 15.5 % Low 19-41 [facility] Comment on above: Performed By: #### L 500.2500, L100.0100 #### [facility] Laboratory [address] [place], [address] MCH (RBC) [Entitic mass] 29.1 pg Normal 27.0-32.0 [facility] Comment on above: Performed By: #### L 500.2500, L100.0100 #### [facility] Laboratory [address] [place], [address] MCHC (RBC) [Mass/Vol] 33.7 g/dL Normal 32-36 [facility] Comment on above: Performed By: #### L 500.2500, L100.0100 #### [facility] Laboratory [address] [place], [address] MCV (RBC) [Entitic vol] 86.3 fL Normal 81-99 [facility] Comment on above: Performed By: #### L 500.2500, L100.0100 #### [facility] Laboratory [address] [place], [address] Monocytes/100 WBC (Bld) 12.0 % High 0-10 [facility] Comment on above: Performed By: #### L 500.2500, L100.0100 #### [facility] Laboratory [address] [place], [address] Neutrophils/100 WBC (Bld) 71.5 % High 47-70 [facility] Comment on above: Performed By: #### L 500.2500, L100.0100 #### [facility] Laboratory [address] [place], [address] Nucleated RBC (Bld) [#/Vol] 0 10*3/uL Normal 0-5 [facility] Comment on above: Performed By: #### L 500.2500, L100.0100 #### [facility] Laboratory [address] [place], [address] Platelet mean volume (Bld) [Entitic vol] 9.3 fL Normal 6.2-12.0 [facility] Comment on above: Performed By: #### L 500.2500, L100.0100 #### [facility] Laboratory [address] [place], [address] Platelets (Bld) [#/Vol] 239 10*3/uL Normal 150-450 [facility] Comment on above: Performed By: #### L 500.2500, L100.0100 #### [facility] Laboratory [address] [place], [address] RBC (Bld) [#/Vol] 4.61 10*6/uL Normal 4.2-5.4 [facility] Comment on above: Performed By: #### L 500.2500, L100.0100 #### [facility] Laboratory [address] [place], [address] RDW SD 44.9 fl High 35.1-43.9 [facility] Comment on above: Performed By: #### L 500.2500, L100.0100 #### [facility] Laboratory [address] [place], [address] WBC (Bld) [#/Vol] 12.2 10*3/uL High 4.4-11.0 [facility] Comment on above: Performed By: #### L 500.2500, L100.0100 #### [facility] Laboratory [address] [place], [address] CNOVon 11-09-2024 CNOV Normal [facility] Chest 1 View (Portable)on Chest 1 View (Portable) [facility] Imaging Services [address] [place] [address] Chest 1 View (Portable) MR#: [id number] Acct: [id number] Name: BRENDA LE Shawanda Rep #: [id number] : 1965 F 58 From: Adriano Mejia DO PCP: ESEQUIEL Headley Status: PRE ER Study: Chest 1 View (Portable) Date of Exam: 11/09/24 Exam# [id number] Ordering Dr: Provider,Ed P. PROCEDURE: CHEST 1 [...] process. Follow-up to resolution recommended. Reading [facility] CC: FOUNDER AND CEO Shelia Salmon; ED PHYSICIAN PROVIDER Indian [place]anny: Signed Normal [facility] Emergency Department Summary on 11-09-2024 Emergency Department Summary [facility] Medical Records Department [address] [place] [address] Emergency Department Summary 11/09/24 MR#: [id number] Acct: [id number] Name: LOTTIEBRENDA Mayberry Rep #: [id number] : 1965 58 From: Francisco Thompson DO PCP: Shelia Salmon, FOUNDER AND CEO Status:REG ER Location: ED HPI History of Present Illness Chief Complaint: Shortness of Breath Informant: patient and mental health staff Narrative Narrative: 58-year-old female from mental health senior care presenting to the emergency room with fever and cough. There is reported that around the of this month she had a viral URI. 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 They recommended that she come to emergency when it was discovered that the semiconductor processing group leader stated they cannot give her any medicine [...] She does have a history of COPD. 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 Normal [facility] H AND P Exam - Hospitaliston 11-09-2024 H&P Exam - Hospitalist [facility] Medical Records Department [address] [place] [address] H P Exam - Hospitalist 11/09/24 2321 MR#: [id number] Acct: [id number] Name: BRENDA LE Rep #: [id number] : 1965 58 From: Hesham Amato DO PCP: Shelia Salmon, FOUNDER AND CEO Status:ADM IN [place] [facility] [id number] HPI - General General Date of Admission: [...] omeprazole who resides at a local psychiatric senior care who presents to [facility] ER after staff noted patient complaining of shortness of breath and wheezing. Ms. Le is not a fully-reliable historian at this time so information was primarily gathered from chart, medical staff and computer. According to the records the patient's geoscientist informed the ER physician that she first became ill around November 02, 2024 with a viral URI. She was subsequently taken to urgent care with patient suspected to have Pneumonia complicated by AE COPD with patient recommended to start antibiotic and steroid therapy but geoscientist unable to administer medications without a formal MAR to sign off on - which would not be available until tomorrow morning so she was brought in to the ER for further evaluation and treatment. Her geoscientist went on to report that she looked [...] is expected to extend beyond 2 midnights. 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 Normal [facility] INFLUENZA A&B MOLECULAR (POC )on 11-09-2024 Flu A (POCT) Negative Negative [facility] Flu B (POCT) Negative Negative [facility] Procedural Control Valid [facility] Location:[facility], [address], [place], [address] [facility] CARE [facility] Influenza virus A and B and SARS-CoV-2 (COVID-19) and Respiratory syncytial virus RNAOrdered By: Francisco Thompson on 11-09-2024 SARS-CoV-2 (COVID-19) RNA LUIS M+probe Ql (Unsp spec) [facility] International normalized rat io (INR) calculationOrdered By: Francisco Thompson on 11-09-2024 INR Coag (Bld) [Relative time] 1.1 {INR} [facility] Lactic Acidon 11-09-2024 Lactate [Moles/Vol] 1.3 mmol/L Normal 0.4-1.9 [facility] Comment on above: Order Comment: Y Performed By: #### L 100.0100 #### [facility] Laboratory [address] [place], [address] Lactic acid measurementOrder ed By: Francisco Thompson on 11-09-2024 Lactate [Moles/Vol] 1.3 mmol/L 0.4-2.0 [facility] Liver Profileon 11-09-2024 Albumin [Mass/Vol] 3.5 g/dL Normal 3.2-5.0 [facility] Comment on above: Performed By: #### M 100.678 #### [facility] Laboratory [address] [place], [address] ALK P 188 U/L High 45-117 [facility] Comment on above: Performed By: #### M 100.678 #### [facility] Laboratory [address] [place], [address] ALT [Catalytic activity/Vol] 103 U/L High 13-56 [facility] Comment on above: Performed By: #### M 100.678 #### [facility] Laboratory [address] [place], [address] AST [Catalytic activity/Vol] 83 U/L High 15-37 [facility] Comment on above: Performed By: #### M 100.678 #### [facility] Laboratory [address] [place], [address] Bilirubin [Mass/Vol] 0.80 mg/dL Normal 0.20-1.00 [facility] Comment on above: Result Comment: For patients on eltrombopag therapy, use of Dimension [place] TBIL is not recommended. Performed By: #### M 100.678 #### [facility] Laboratory [address] [place], [address] Bilirubin.direct [Mass/Vol] 0.28 mg/dL Normal 0.00-0.30 [facility] Comment on above: Performed By: #### M 100.678 #### [facility] Laboratory [address] [place], [address] Globulin (S) [Mass/Vol] 4.4 g/dL High 2.2-4.2 [facility] Comment on above: Performed By: #### M 100.678 #### [facility] Laboratory [address] [place], [address] T PROT 7.9 g/dL Normal 6.4-8.2 [facility] Comment on above: Performed By: #### M 100.678 #### [facility] Laboratory [address] [place], [address] M100.678on 11-09-2024 M100.678 SARS-CoV-2 (COVID 19 ) Negative INFLUENZA A Negative INFLUENZA B Negative RSV PCR Negative Normal [facility] Comment on above: Performed By: #### L 500.4050, L501.2450, L100.0500, L501.4020 #### [facility] Laboratory [address] [place], [address] Prothrombin Time w/INRon INR Coag (PPP) [Relative time] 1.1 {INR} Normal [facility] Comment on above: Performed By: #### L 100.0100 #### [facility] Laboratory [address] [place], [address] PT Coag (PPP) [Time] 13.9 s Normal 11.7-14.9 [facility] Comment on above: Performed By: #### L 100.0100 #### [facility] Laboratory [address] [place], [address] Prothrombin timeOrdered By: Francisco Thompson on 11-09-2024 PT Coag (PPP) [Time] 13.9 s 11.7-14.9 [facility] XR CHEST 2V FRONTAL/LATon XR CHEST 2V FRONTAL/LAT Normal C [facility] XR Chest PA and Lateralon IMPRESSION: Patchy density in the lingula raises the possibility of pneumonia. Indian Nanny: MILDRED Transcribe Date/Time: Nov 09 2024 5:44P Dictated by : HESHAM CEDILLO MD This examination was interpreted and the report reviewed and electronically signed by: HESHAM CEDILLO MD on Nov 09 2024 5:46PM [facility] DIVISION OF [...] the thoracic spine. DIVISION OF RADIOLOGY Provider, [facility] - 11/09/2024 * * *Final [...] the lingula raises the possibility of pneumonia. Indian Nanny: PSCStefania Transcribe Date/Time: Nov 09 2024 5:44P Dictated by : HESHAM CEDILLO MD This examination was interpreted and the report reviewed and electronically signed by: HESHAM CEDILLO MD on Nov 09 2024 5:46PM EST [facility] Radiology Study observation (narrative) Pola et[facility] XR Chest PA and LateralOrder ed By: Ccf Provider on 11-09-[address] [facility] CNPNon 11-05-2024 CNPN Normal [facility] Aldolase SerPl-cCncon 2024 Aldolase [Catalytic activity/Vol] 5.2 mU/mL Normal 1.5-8.1 [facility] Comment on above: Order Comment: Speci carlos Type: BLOOD SPECIMENOrdering Facility: [facility] Address: [address] [place] [address] Result Comment: This test was developed, and its performance characteristics determined by the [facility] Department of Pathology and Laboratory Medicine. It has not been cleared or approved by the FDA. The [facility] Department of Pathology and Laboratory Medicine is regulated under CLIA as qualified to perform high-complexity testing. This test is used for clinical purposes. It should not be regarded as investigational or for research. Performed By: #### 1 761-6 ####[facility] LABCLIA [id number] [place] [address] [place] CBC W Auto Differential pane l (Bld)on 11-02-2024 Basophils (Bld) [#/Vol] 0.06 10*3/uL Normal <0.11 [facility] Comment on above: Order Comment: Speci men Type: BLOOD SPECIMENOrdering Facility: [facility] Address: [address] [place] [address] Performed By: #### 5 7021-8 ####[facility] LABCLIA [id number] [place] [address] [place] Basophils/100 WBC (Bld) 0.5 % Normal C [facility] Comment on above: Order Comment: Speci men Type: BLOOD SPECIMENOrdering Facility: [facility] Address: [address] [place] [address] Performed By: #### 5 7021-8 ####[facility] LABCLIA [id number] [place] [address] [place] Differential cell count method Nom (Bld) Auto Normal [facility] Comment on above: Order Comment: Speci men Type: BLOOD SPECIMENOrdering Facility: [facility] Address: [address] [place] [address] Performed By: #### 5 7021-8 ####[facility] LABCLIA [id number] [place] [address] [place] Eosinophils (Bld) [#/Vol] 10*3/uL Normal <0.46 [facility] Comment on above: Order Comment: Speci men Type: BLOOD SPECIMENOrdering Facility: [facility] Address: [address] [place] [address] Performed By: #### 5 7021-8 ####[facility] LABCLIA [id number] [place] [address] [place] Eosinophils/100 WBC (Bld) 0.1 % Normal [facility] Comment on above: Order Comment: Speci men Type: BLOOD SPECIMENOrdering Facility: [facility] Address: [address] [place] [address] Performed By: #### 5 7021-8 ####[facility] LABCLIA [id number] [place] [address] [place] Erythrocyte distribution width (RBC) [Ratio] 14.3 % Normal 11.5-15.0 [facility] Comment on above: Order Comment: Speci men Type: BLOOD SPECIMENOrdering Facility: [facility] Address: [address] [place] [address] Performed By: #### 5 7021-8 ####[facility] LABCLIA [id number] [place] [address] [place] Hematocrit (Bld) [Volume fraction] 44.1 % Normal 36.0-46.0 [facility] Comment on above: Order Comment: Speci men Type: BLOOD SPECIMENOrdering Facility: [facility] Address: [address] [place] [address] Performed By: #### 5 7021-8 ####[facility] LABCLIA [id number] [place] [address] [place] Hemoglobin (Bld) [Mass/Vol] 13.8 g/dL Normal 11.5-15.5 [facility] Comment on above: Order Comment: Speci men Type: BLOOD SPECIMENOrdering Facility: [facility] Address: [address] [place] [address] Performed By: #### 5 7021-8 ####[facility] LABCLIA [id number] [place] [address] [place] Immature granulocytes (Bld) [#/Vol] 0.05 10*3/uL Normal <0.10 [facility] Comment on above: Order Comment: Speci men Type: BLOOD SPECIMENOrdering Facility: [facility] Address: [address] [place] [address] Performed By: #### 5 7021-8 ####[facility] LABCLIA [id number] [place] [address] [place] Immature granulocytes/100 WBC (Bld) 0.5 % Normal [facility] Comment on above: Order Comment: Speci men Type: BLOOD SPECIMENOrdering Facility: [facility] Address: [address] [place] [address] Performed By: #### 5 7021-8 ####[facility] LABCLIA [id number] [place] [address] [place] Lymphocytes (Bld) [#/Vol] 2.33 10*3/uL Normal 1.00-4.00 [facility] Comment on above: Order Comment: Speci men Type: BLOOD SPECIMENOrdering Facility: [facility] Address: [address] [place] [address] Performed By: #### 5 7021-8 ####[facility] LABCLIA [id number] [place] [address] [place] Lymphocytes/100 WBC (Bld) 21.0 % Normal [facility] Comment on above: Order Comment: Speci men Type: BLOOD SPECIMENOrdering Facility: [facility] Address: [address] [place] [address] Performed By: #### 5 7021-8 ####[facility] LABIA [id number] [place] [address] [place] MCH (RBC) [Entitic mass] 28.4 pg Normal 26.0-34.0 [facility] Comment on above: Order Comment: Speci men Type: BLOOD SPECIMENOrdering Facility: [facility] Address: [address] [place] [address] Performed By: #### 5 7021-8 ####[facility] LABIA [id number] [place] [address] [place] MCHC (RBC) [Mass/Vol] 31.3 g/dL Normal 30.5-36.0 [facility] Comment on above: Order Comment: Speci men Type: BLOOD SPECIMENOrdering Facility: [facility] Address: [address] [place] [address] Performed By: #### 5 7021-8 ####[facility] LABIA [id number] [place] [address] [place] MCV (RBC) [Entitic vol] 90.7 fL Normal 80.0-100.0 C [facility] Comment on above: Order Comment: Speci men Type: BLOOD SPECIMENOrdering Facility: [facility] Address: [address] [place] [address] Performed By: #### 5 7021-8 ####[facility] LABCLIA [id number] [place] [address] [place] Monocytes (Bld) [#/Vol] 0.76 10*3/uL Normal <0.87 [facility] Comment on above: Order Comment: Speci men Type: BLOOD SPECIMENOrdering Facility: [facility] Address: [address] [place] [address] Performed By: #### 5 7021-8 ####[facility] LABCLIA [id number] [place] [address] [place] Monocytes/100 WBC (Bld) 6.9 % Normal [facility] Comment on above: Order Comment: Speci men Type: BLOOD SPECIMENOrdering Facility: [facility] Address: [address] [place] [address] Performed By: #### 5 7021-8 ####[facility] LABCLIA [id number] [place] [address] [place] Neutrophils (Bld) [#/Vol] 7.86 10*3/uL High 1.45-7.50 [facility] Comment on above: Order Comment: Speci men Type: BLOOD SPECIMENOrdering Facility: [facility] Address: [address] [place] [address] Performed By: #### 5 7021-8 ####[facility] LABCLIA [id number] [place] [address] [place] Neutrophils/100 WBC (Bld) 71.0 % Normal [facility] Comment on above: Order Comment: Speci men Type: BLOOD SPECIMENOrdering Facility: [facility] Address: [address] [place] [address] Performed By: #### 5 7021-8 ####[facility] LABCLIA [id number] [place] [address] [place] Nucleated RBC (Bld) [#/Vol] 10*3/uL Normal <0.01 [facility] Comment on above: Order Comment: Speci men Type: BLOOD SPECIMENOrdering Facility: [facility] Address: [address] [place] [address] Performed By: #### 5 7021-8 ####[facility] LABIA [id number] [place] [address] [place] Nucleated RBC/100 WBC (Bld) [Ratio] 0.0 /100 WBC Normal [facility] Comment on above: Order Comment: Speci men Type: BLOOD SPECIMENOrdering Facility: [facility] Address: [address] [place] [address] Performed By: #### 5 7021-8 ####[facility] LABIA [id number] [place] [address] [place] Platelet mean volume (Bld) [Entitic vol] 12.2 fL Normal 9.0-12.7 [facility] Comment on above: Order Comment: Speci men Type: BLOOD SPECIMENOrdering Facility: [facility] Address: [address] [place] [address] Performed By: #### 5 7021-8 ####[facility] LABIA [id number] [place] [address] [place] Platelets (Bld) [#/Vol] 129 10*3/uL Low 150-400 [facility] Comment on above: Order Comment: Speci men Type: BLOOD SPECIMENOrdering Facility: [facility] Address: [address] [place] [address] Performed By: #### 5 7021-8 ####[facility] LABIA [id number] [place] [address] [place] RBC (Bld) [#/Vol] 4.86 10*6/uL Normal 3.90-5.20 [facility] Comment on above: Order Comment: Speci men Type: BLOOD SPECIMENOrdering Facility: [facility] Address: [address] [place] [address] Performed By: #### 5 7021-8 ####[facility] LABIA [id number] [address] [address] [place] WBC (Bld) [#/Vol] 11.07 10*3/uL High 3.70-11.00 [facility] Comment on above: Order Comment: Speci men Type: BLOOD SPECIMENOrdering Facility: [facility] Address: [address] [place] [address] Performed By: #### 5 7021-8 ####[facility] [id number] [place] [address] [place] CK SerPl-cCncon 11-02-2024 CK [Catalytic activity/Vol] 51 U/L Normal 42-196 [facility] Comment on above: Order Comment: Speci men Type: BLOOD SPECIMENOrdering Facility: [facility] Address: [address] [place] [address] Performed By: #### 2 157-6, 63954-2, LIPNF ####[facility] [id number] [place] [address] [place] CNOVon 11-02-2024 CNOV Normal [facility] Comprehensive metabolic 2000 panelon 11-02-2024 Albumin [Mass/Vol] 4.4 g/dL Normal 3.9-4.9 [facility] Comment on above: Order Comment: Speci men Type: BLOOD SPECIMENOrdering Facility: [facility] Address: [address] [place] [address] Performed By: #### 2 157-6, 27358-1, LIPNF ####[facility] LABIA [id number] [place] [address] [place] ALP [Catalytic activity/Vol] 133 U/L High 34-123 [facility] Comment on above: Order Comment: Speci men Type: BLOOD SPECIMENOrdering Facility: [facility] Address: [address] [place] [address] Performed By: #### 2 157-6, 78978-4, LIPNF ####[facility] LABCLIA [id number] [place] [id number] [place] ALT [Catalytic activity/Vol] 43 U/L High 7-38 [facility] Comment on above: Order Comment: Speci men Type: BLOOD SPECIMENOrdering Facility: [facility] Address: [address] [place] [address] Performed By: #### 2 157-6, 85106-9, LIPNF ####[facility] LABCLIA [id number] [place] [address] [place] Anion gap [Moles/Vol] 13 mmol/L Normal 8-15 [facility] Comment on above: Order Comment: Speci men Type: BLOOD SPECIMENOrdering Facility: [facility] Address: [address] [place] [address] Performed By: #### 2 157-6, 76151-3, LIPNF ####[facility] LABCLIA [id number] [place] [address] [place] AST [Catalytic activity/Vol] 23 U/L Normal 13-35 [facility] Comment on above: Order Comment: Speci men Type: BLOOD SPECIMENOrdering Facility: [facility] Address: [address] [place] [address] Performed By: #### 2 157-6, 47345-7, LIPNF ####[facility] LABCLIA [id number] [place] [id number] [place] Bilirubin [Mass/Vol] 0.2 mg/dL Normal 0.2-1.3 [facility] Comment on above: Order Comment: Speci men Type: BLOOD SPECIMENOrdering Facility: [facility] Address: [address] [place] [address] Performed By: #### 2 157-6, 28344-7, LIPNF ####[facility] LABCLIA [id number] [place] [address] [place] Calcium [Mass/Vol] 9.2 mg/dL Normal 8.5-10.2 [facility] Comment on above: Order Comment: Speci men Type: BLOOD SPECIMENOrdering Facility: [facility] Address: [address] [place] [address] Performed By: #### 2 157-6, 24225-6, LIPNF ####[facility] LABCLIA [id number] [place] [address] [place] Chloride [Moles/Vol] 93 mmol/L Low 98-107 [facility] Comment on above: Order Comment: Speci men Type: BLOOD SPECIMENOrdering Facility: [facility] Address: [address] [place] [address] Performed By: #### 2 157-6, 67935-8, LIPNF ####[facility] LABCLIA [id number] [place] [address] [place] CO2 [Moles/Vol] 25 mmol/L Normal 22-30 [facility] Comment on above: Order Comment: Speci men Type: BLOOD SPECIMENOrdering Facility: [facility] Address: [address] [place] [address] Performed By: #### 2 157-6, 74507-4, LIPNF ####[facility] LABCLIA [id number] [place] [address] [place] Creatinine [Mass/Vol] 0.55 mg/dL Low 0.58-0.96 [facility] Comment on above: Order Comment: Speci men Type: BLOOD SPECIMENOrdering Facility: [facility] Address: [address] [place] [address] Performed By: #### 2 157-6, 92860-3, LIPNF ####[facility] LABCLIA [id number] [place] [address] [place] Creatinine and Glomerular filtration rate.predicted panel (S/P/Bld) 105 mL/min/1.73m??? Normal >=60 [facility] Comment on above: Order Comment: Rand gonzalez Type: BLOOD SPECIMENOrdering Facility: [facility] Address: [address] [place] [address] Result Comment: Gia mated Glomerular Filtration Rate [...] actual GFR. Performed By: #### 2 157-6, 60021-0, LIPROYAL ####[facility] LABIA [id number] [place] [address] [place] Glucose [Mass/Vol] 138 mg/dL High 74-99 [facility] Comment on above: Order Comment: Rand gonzalez Type: BLOOD SPECIMENOrdering Facility: [facility] Address: [address] [place] [address] Result Comment: The [place] Diabetes Association (ADA) provides guidance for cutoff [...] Standards of Medical Care in Diabetes 2016, [place] Diabetes Association. Diabetes Care. 2016.39(Suppl 1). Performed By: #### 2 157-6, 76338-2, LIPNF ####[facility] LABIA [id number] [place] [address] [place] Potassium [Moles/Vol] 4.3 mmol/L Normal 3.7-5.1 [facility] Comment on above: Order Comment: Speci men Type: BLOOD SPECIMENOrdering Facility: [facility] Address: [address] [place] [address] Performed By: #### 2 157-6, 26745-0, LIPNF ####[facility] LABCLIA [id number] [address] [address] [place] Protein [Mass/Vol] 7.4 g/dL Normal 6.3-8.0 [facility] Comment on above: Order Comment: Speci men Type: BLOOD SPECIMENOrdering Facility: [facility] Address: [address] [place] [address] Performed By: #### 2 157-6, 08597-9, LIPNF ####[facility] LABCLIA [id number] [place] [address] [place] Sodium [Moles/Vol] 131 mmol/L Low 136-144 [facility] Comment on above: Order Comment: Speci men Type: BLOOD SPECIMENOrdering Facility: [facility] Address: [address] [place] [address] Performed By: #### 2 157-6, 23175-1, LIPNF ####[facility] LABCLIA [id number] [place] [address] [place] Urea nitrogen [Mass/Vol] 11 mg/dL Normal - [facility] Comment on above: Order Comment: Speci men Type: BLOOD SPECIMENOrdering Facility: [facility] Address: [address] [place] [address] Performed By: #### 2 157-6, 77489-7, LIPNF ####[facility] LABCLIA [id number] [place] [id number] [place] HbA1c (Bld)on 11-02-2024 Average glucose Estimated from glycated hemoglobin (Bld) [Mass/Vol] 146 mg/dL Normal [facility] Comment on above: Order Comment: Speci men Type: BLOOD SPECIMENOrdering Facility: [facility] Address: [address] [place] [address] Result Comment: eAG: (Estimated average glucose) is a calculated value from HgbA1c and is motor vehicle field representative of the average blood glucose level in the last 2-3 month period. Performed By: #### 5 5454-3 ####[facility] LABCLIA [id number] [place] [address] [place] HbA1c (Bld) [Mass fraction] 6.7 % High 4.3-5.6 [facility] Comment on above: Order Comment: Speci men Type: BLOOD SPECIMENOrdering Facility: [facility] Address: [address] [place] [address] Result Comment: [place] Diabetes Association guidelines indicate that patients with HgbA1c in the range 5.7-6.4% are at increased risk for development of diabetes, and intervention by lifestyle modification may be beneficial. HgbA1c greater or equal to 6.5% is considered diagnostic of diabetes. Performed By: #### 5 5454-3 ####[facility] LABCLIA [id number] [place] [address] [place] LIPID PANEL, NONFASTINGon Cholesterol [Mass/Vol] 204 mg/dL High <200 [facility] Comment on above: Order Comment: Speci men Type: BLOOD SPECIMENOrdering Facility: [facility] Address: [address] [place] [address] Result Comment: <200 mg/dL, Desirable 200-239 mg/dL, Borderline high>239 mg/dL, High Performed By: #### 2 157-6, 53707-8, LIPNF ####[facility] LABIA [id number] [place] [address] [place] HDL CHOLESTEROL, NF 39 mg/dL Low >39 [facility] Comment on above: Order Comment: Speci men Type: BLOOD SPECIMENOrdering Facility: [facility] Address: [address] [place] [address] Result Comment: 40-5 9 mg/dL, Acceptable>59 mg/dL, High: Negative risk factor for coronary heart disease<40 mg/dL, Low: Positive risk factor for coronary heart disease Performed By: #### 2 157-6, 18065-6, LIPNF ####[facility] LABCLIA [id number] [place] [address] [place] LDL CHOLESTEROL, NF 96 mg/dL Normal <100 [facility] Comment on above: Order Comment: Speci men Type: BLOOD SPECIMENOrdering Facility: [facility] Address: [address] [place] [address] Result Comment: <100 mg/dL, Optimal 100-129 mg/dL, Near optimal/above optimal 130-159 mg/dL, Borderline high 160-189 mg/dL, High>189 mg/dL, Very highSecondary prevention optimal LDL Cholesterol levels are recommended to be < 70 mg/dL Performed By: #### 2 157-6, 97633-5, LIPNF ####[facility] LABCLIA [id number] [place] [address] [place] LDL/HDL RATIO, NF 2.46 mg/dL Normal <2.54 [facility] Comment on above: Order Comment: Speci men Type: BLOOD SPECIMENOrdering Facility: [facility] Address: [address] [place] [address] Result Comment: Refe rence:1. National Cholesterol Education Program ATP III Guideline At-A-Glance Quick Desk Reference: National Heart, Lung, and Blood [place]. National Institutes of Health. 2001: NIH Publication No. 01-3305.2. An International Atherosclerosis Society position paper: global recommendations for the management of dyslipidemia: executive summary, Atherosclerosis. 2014: 232(2):410-413. Performed By: #### 2 157-6, 93739-8, LIPNF ####[facility] LABCLIA [id number] [place] [address] [place] NON HDL CHOL, NF 165 mg/dL High <130 [facility] Comment on above: Order Comment: Speci men Type: BLOOD SPECIMENOrdering Facility: [facility] Address: [address] [place] [address] Result Comment: <130 mg/dL, Optimal 130-159 mg/dL, Near optimal/above optimal 160-189 mg/dL, Borderline high 190-219 mg/dL, High>219 mg/dL, Very highSecondary prevention optimal non HDL Cholesterol levels are recommended to be <100 mg/dL Performed By: #### 2 157-6, 62808-9, LIPNF ####[facility] LABCLIA [id number] [place] [address] [place] T CHOL/HDL RATIO NF 5.23 mg/dL High <5.10 [facility] Comment on above: Order Comment: Speci men Type: BLOOD SPECIMENOrdering Facility: [facility] Address: [address] [place] [address] Performed By: #### 2 157-6, 26559-1, LIPNF ####[facility] LABCLIA [id number] [place] [address] [place] TRIGLYCERIDES, NF 344 mg/dL High <150 [facility] Comment on above: Order Comment: Speci men Type: BLOOD SPECIMENOrdering Facility: [facility] Address: [address] [place] [address] Result Comment: <150 mg/dL, Normal 150-199 mg/dL, Borderline high 200-499 mg/dL, High>499 mg/dL, Very high Performed By: #### 2 157-6, 73481-3, LIPNF ####[facility] LABCLIA [id number] [place] [address] [place] VLDL CHOLESTEROL, NF 69 mg/dL High <30 [facility] Comment on above: Order Comment: Speci men Type: BLOOD SPECIMENOrdering Facility: [facility] Address: [address] [place] [address] Performed By: #### 2 157-6, 22757-6, LIPNF ####[facility] LABCLIA [id number] [address] [address] [place] XR LUMBAR 3V AP/LAT/L5-S1on 11-02-2024 XR LUMBAR 3V AP/LAT/L5-S1 Normal [facility] XR Lumbar spine 3 Viewson IMPRESSION: MILD DEGENERATIVE CHANGE Indian Nanny: MILDRED Transcribe Date/Time: Nov 02 2024 4:48P Dictated by : EUSEBIA MARIN MD This examination was interpreted and the report reviewed and electronically signed by: EUSEBIA MARIN MD on Nov 02 2024 4:52PM [facility] DIVISION OF [...] focal bony abnormality DIVISION OF RADIOLOGY Provider, [facility] - 11/02/2024 * * *Final [...] bony abnormality IMPRESSION IMPRESSION: MILD DEGENERATIVE CHANGE Indian Nanny: PSCStefania Transcribe Date/Time: Nov 02 2024 4:48P Dictated by : EUSEBIA MARIN MD This examination was interpreted and the report reviewed and electronically signed by: EUSEBIA MARIN MD on Nov 02 2024 4:52PM EST [facility] Radiology Study observation (narrative) [facility] XR Lumbar spine 3 ViewsOrder ed By: Ccf Provider on 11-02-[address] [facility] 12 Lead EKGon 10-14-2024 12 Lead EKG [facility] Cardiovascular Services [address] [place] [address] 12 Lead EKG 10/14/24 1615 MR#: [id number] Acct: [id number] Name: BRENDA LE Rep #: [id number] : 1965 58 From: Yovany Dimas MD [...] Abnormal ECG Confirmed by YOVANY DIMAS MD ([id number]), magazine editor ROSY CLINE ([id number]) on 10/15/2024 8:26:49 AM Referred By: Tae Holland Confirmed By: YOVANY DIMAS MD 10/15/24 0826 Date Yovany Dimas MD CC: ESEQUIEL Salmon; Dr. Tae Holland DO Signed Normal [facility] Absolute neutrophil countOrd ered By: Lorraine Springer on 10-14-2024 Neutrophils (Bld) [#/Vol] 5.8 10*3/uL 2.0-7.7 [facility] Albumin to globulin ratioOrd ered By: Tae Holland on 10-14-2024 Albumin/Globulin [Mass ratio] 0.9 {ratio} 0.9-2.4 [facility] Basophil percentageOrdered B y: Lorraine Springer on 10-14-2024 Basophils/100 WBC (Bld) 0.5 % 0-1 [facility] Bilirubin, totalOrdered By: Tae Holland on 10-14-2024 Bilirubin [Mass/Vol] 0.50 mg/dL 0.20-1.00 [facility] Comment on above: For patients on eltr ombopag therapy, use of Dimension [place] TBIL is not recommended. Blood urea nitrogen (BUN)/cr eatinine ratioOrdered By: Tae Holland on 10-14-2024 Urea nitrogen/Creatinine [Mass ratio] 31.2 mg/mg High 10-20 [facility] CBC W/Diff, Automatedon Absolute Lymph 1.45 X10 3/uL Normal 0.83-4.51 [facility] Comment on above: Performed By: #### L 100.0100 #### [facility] Laboratory [address] [place], [address] Absolute Neut 5.8 X10 3/uL Normal 2.0-7.7 [facility] Comment on above: Performed By: #### L 100.0100 #### [facility] Laboratory [address] [place], [address] Basophils/100 WBC (Bld) 0.5 % Normal 0-1 [facility] Comment on above: Performed By: #### L 100.0100 #### [facility] Laboratory [address] [place], [address] Eosinophils/100 WBC (Bld) 0.4 % Normal 0-5 [facility] Comment on above: Performed By: #### L 100.0100 #### [facility] Laboratory [address] [place], [address] Erythrocyte distribution width (RBC) [Ratio] 14.0 % Normal 11.6-14.6 [facility] Comment on above: Performed By: #### L 100.0100 #### [facility] Laboratory [address] [place], [address] Hematocrit (Bld) [Volume fraction] 44.2 % Normal 37-47 [facility] Comment on above: Performed By: #### L 100.0100 #### [facility] Laboratory [address] [place], [address] Hemoglobin (Bld) [Mass/Vol] 14.4 g/dL Normal 12.0-15.0 [facility] Comment on above: Performed By: #### L 100.0100 #### [facility] Laboratory [address] [place], [address] IG% 0.600 Normal 0.0-0.9 [facility] Comment on above: Result Comment: IG% - Immature Granulocytes (promyelocytes, myelocytes and metamyelocytes) > 1% indicates that a LEFT SHIFT is Present. Performed By: #### L 100.0100 #### [facility] Laboratory [address] [place], [address] Lymphocytes/100 WBC (Bld) 17.9 % Low 19-41 [facility] Comment on above: Performed By: #### L 100.0100 #### [facility] Laboratory [address] [place], [address] MCH (RBC) [Entitic mass] 29.3 pg Normal 27.0-32.0 [facility] Comment on above: Performed By: #### L 100.0100 #### [facility] Laboratory [address] [place], [address] MCHC (RBC) [Mass/Vol] 32.6 g/dL Normal 32-36 [facility] Comment on above: Performed By: #### L 100.0100 #### [facility] Laboratory [address] [place], [address] MCV (RBC) [Entitic vol] 90.0 fL Normal 81-99 [facility] Comment on above: Performed By: #### L 100.0100 #### [facility] Laboratory [address] [place], [address] Monocytes/100 WBC (Bld) 9.5 % Normal 0-10 [facility] Comment on above: Performed By: #### L 100.0100 #### [facility] Laboratory [address] [place], [address] Neutrophils/100 WBC (Bld) 71.1 % High 47-70 [facility] Comment on above: Performed By: #### L 100.0100 #### [facility] [address] [place], [address] Nucleated RBC (Bld) [#/Vol] 0 10*3/uL Normal 0-5 [facility] Comment on above: Performed By: #### L 100.0100 #### [facility] [address] [place], [address] Platelet mean volume (Bld) [Entitic vol] 11.1 fL Normal 6.2-12.0 [facility] Comment on above: Performed By: #### L 100.0100 #### [facility] [address] [place], [address] Platelets (Bld) [#/Vol] 196 10*3/uL Normal 150-450 [facility] Comment on above: Performed By: #### L 100.0100 #### [facility] Laboratory [address] [place], [address] RBC (Bld) [#/Vol] 4.91 10*6/uL Normal 4.2-5.4 [facility] Comment on above: Performed By: #### L 100.0100 #### [facility] Laboratory [address] [place], [address] RDW SD 45.5 fl High 35.1-43.9 [facility] Comment on above: Performed By: #### L 100.0100 #### [facility] Laboratory [address] [place], [address] WBC (Bld) [#/Vol] 8.1 10*3/uL Normal 4.4-11.0 [facility] Comment on above: Performed By: #### L 100.0100 #### [facility] Laboratory [address] [place], [address] CBC-Complete Blood Cnt No Di ffon 10-14-2024 Erythrocyte distribution width (RBC) [Ratio] 13.9 % Normal 11.6-14.6 [facility] Comment on above: Performed By: #### L 500.4050, L501.2450, L100.0500, L501.4020 #### [facility] Laboratory [address] [place], [address] Hematocrit (Bld) [Volume fraction] 45.8 % Normal 37-47 [facility] Comment on above: Performed By: #### L 500.4050, L501.2450, L100.0500, L501.4020 #### [facility] Laboratory [address] [place], [address] Hemoglobin (Bld) [Mass/Vol] 15.1 g/dL High 12.0-15.0 [facility] Comment on above: Performed By: #### L 500.4050, L501.2450, L100.0500, L501.4020 #### [facility] Laboratory [address] [place], [address] MCH (RBC) [Entitic mass] 29.1 pg Normal 27.0-32.0 [facility] Comment on above: Performed By: #### L 500.4050, L501.2450, L100.0500, L501.4020 #### [facility] Laboratory [address] [place], [address] MCHC (RBC) [Mass/Vol] 33.0 g/dL Normal 32-36 [facility] Comment on above: Performed By: #### L 500.4050, L501.2450, L100.0500, L501.4020 #### [facility] Laboratory [address] [place], [address] MCV (RBC) [Entitic vol] 88.2 fL Normal 81-99 [facility] Comment on above: Performed By: #### L 500.4050, L501.2450, L100.0500, L501.4020 #### [facility] Laboratory [address] [place], [address] Platelet mean volume (Bld) [Entitic vol] 9.6 fL Normal 6.2-12.0 [facility] Comment on above: Performed By: #### L 500.4050, L501.2450, L100.0500, L501.4020 #### [facility] Laboratory [address] [place], [address] Platelets (Bld) [#/Vol] 217 10*3/uL Normal 150-450 [facility] Comment on above: Performed By: #### L 500.4050, L501.2450, L100.0500, L501.4020 #### [facility] Laboratory [address] [place], [address] RBC (Bld) [#/Vol] 5.19 10*6/uL Normal 4.2-5.4 [facility] Comment on above: Performed By: #### L 500.4050, L501.2450, L100.0500, L501.4020 #### [facility] Laboratory [address] [place], [address] RDW SD 44.6 fl High 35.1-43.9 [facility] Comment on above: Performed By: #### L 500.4050, L501.2450, L100.0500, L501.4020 #### [facility] Laboratory [address], [address] WBC (Bld) [#/Vol] 19.5 10*3/uL High 4.4-11.0 [facility] Comment on above: Performed By: #### L 500.4050, L501.2450, L100.0500, L501.4020 #### [facility] Laboratory [address] 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 Tae Holland DO Indian [place]: Signed Normal [facility] Chloride measurementOrdered By: Tae Holland on 10-14-2024 Chloride [Moles/Vol] 96 mmol/L Low 98-107 [facility] Comprehensive Metabolic Prof ilon 10-14-2024 Albumin [Mass/Vol] 3.5 g/dL Normal 3.2-5.0 [facility] Comment on above: Order Comment: 'TROP ' Serial specimen #1, #2 or #3: 1 Performed By: #### L 500.4050, L501.2450, L100.0500, L501.4020 #### [facility] Laboratory [address] [place], [address] Albumin/Globulin [Mass ratio] 0.9 {ratio} Normal 0.9-2.4 [facility] Comment on above: Order Comment: 'TROP ' Serial specimen #1, #2 or #3: 1 Performed By: #### L 500.4050, L501.2450, L100.0500, L501.4020 #### [facility] Laboratory [address] [place], [address] ALK P 110 U/L Normal 45-117 [facility] Comment on above: Order Comment: 'TROP ' Serial specimen #1, #2 or #3: 1 Performed By: #### L 500.4050, L501.2450, L100.0500, L501.4020 #### [facility] Laboratory [address] [place], [address] ALT [Catalytic activity/Vol] 49 U/L Normal 13-56 [facility] Comment on above: Order Comment: 'TROP ' Serial specimen #1, #2 or #3: 1 Performed By: #### L 500.4050, L501.2450, L100.0500, L501.4020 #### [facility] Laboratory [address] [place], [address] AST [Catalytic activity/Vol] 29 U/L Normal 15-37 [facility] Comment on above: Order Comment: 'TROP ' Serial specimen #1, #2 or #3: 1 Performed By: #### L 500.4050, L501.2450, L100.0500, L501.4020 #### [facility] Laboratory [address] [place], [address] Bilirubin [Mass/Vol] 0.50 mg/dL Normal 0.20-1.00 [facility] Comment on above: Order Comment: 'TROP ' Serial specimen #1, #2 or #3: 1 Result Comment: For patients on eltrombopag therapy, use of Dimension [place] TBIL is not recommended. Performed By: #### L 500.4050, L501.2450, L100.0500, L501.4020 #### [facility] Laboratory [address] [place], [address] BUN/CRE 31.2 RATIO High 10-20 [facility] Comment on above: Order Comment: 'TROP ' Serial specimen #1, #2 or #3: 1 Performed By: #### L 500.4050, L501.2450, L100.0500, L501.4020 #### [facility] Laboratory [address] [place], [address] CA,Total 8.9 mg/dL Normal 8.5-10.1 [facility] Comment on above: Order Comment: 'TROP ' Serial specimen #1, #2 or #3: 1 Performed By: #### L 500.4050, L501.2450, L100.0500, L501.4020 #### [facility] Laboratory [address] [place], [address] Chloride [Moles/Vol] 96 mmol/L Low 98-107 [facility] Comment on above: Order Comment: 'TROP ' Serial specimen #1, #2 or #3: 1 Performed By: #### L 500.4050, L501.2450, L100.0500, L501.4020 #### [facility] Laboratory [address] [place], [address] CO2 [Moles/Vol] 23.0 mmol/L Normal 21.0-32.0 [facility] Comment on above: Order Comment: 'TROP ' Serial specimen #1, #2 or #3: 1 Performed By: #### L 500.4050, L501.2450, L100.0500, L501.4020 #### [facility] Laboratory [address] [place], [address] Creatinine [Mass/Vol] 0.58 mg/dL Normal 0.55-1.02 [facility] Comment on above: Order Comment: 'TROP ' Serial specimen #1, #2 or #3: 1 Result Comment: The validity of the calculated GFR GFRAA in patients over 70 years has not been determined. Clinical correlation is essential. Performed By: #### L 500.4050, L501.2450, L100.0500, L501.4020 #### [facility] [address] [place], [address] EST GFR - AA 137 mL/min Normal >60 [facility] Comment on above: Order Comment: 'TROP ' Serial specimen #1, #2 or #3: 1 Result Comment: Afri can [place] GFR Calc Performed By: #### L 500.4050, L501.2450, L100.0500, L501.4020 #### [facility] Laboratory [address] [place], [address] GAP 10 Normal 5-15 [facility] Comment on above: Order Comment: 'TROP ' Serial specimen #1, #2 or #3: 1 Performed By: #### L 500.4050, L501.2450, L100.0500, L501.4020 #### [facility] Laboratory [address] [place], [address] GFR/1.73 sq M.predicted among non-blacks MDRD (S/P/Bld) [Vol rate/Area] 113 mL/min/{1.73_m2} Normal >60 [facility] Comment on above: Order Comment: 'TROP ' Serial specimen #1, #2 or #3: 1 Result Comment: Non- GFR Calc Performed By: #### L 500.4050, L501.2450, L100.0500, L501.4020 #### [facility] Laboratory [address] [place], [address] Globulin (S) [Mass/Vol] 4.0 g/dL Normal 2.2-4.2 [facility] Comment on above: Order Comment: 'TROP ' Serial specimen #1, #2 or #3: 1 Performed By: #### L 500.4050, L501.2450, L100.0500, L501.4020 #### [facility] Laboratory [address] [place], [address] Glucose [Mass/Vol] 171 mg/dL High 74-106 [facility] Comment on above: Order Comment: 'TROP ' Serial specimen #1, #2 or #3: 1 Result Comment: Fast ing Glucose result greater than or equal to 126 mg/dL suggests DIABETES MELLITUS per A.D.A. criteria. Performed By: #### L 500.4050, L501.2450, L100.0500, L501.4020 #### [facility] Laboratory [address] [place], [address] Potassium [Moles/Vol] 4.0 mmol/L Normal 3.5-5.1 [facility] Comment on above: Order Comment: 'TROP ' Serial specimen #1, #2 or #3: 1 Performed By: #### L 500.4050, L501.2450, L100.0500, L501.4020 #### [facility] Laboratory [address] [place], [address] Sodium [Moles/Vol] 129 mmol/L Low 136-145 [facility] Comment on above: Order Comment: 'TROP ' Serial specimen #1, #2 or #3: 1 Performed By: #### L 500.4050, L501.2450, L100.0500, L501.4020 #### [facility] [address] [place], [address] T PROT 7.5 g/dL Normal 6.4-8.2 [facility] Comment on above: Order Comment: 'TROP ' Serial specimen #1, #2 or #3: 1 Performed By: #### L 500.4050, L501.2450, L100.0500, L501.4020 #### [facility] Laboratory [address] [place], [address] Urea nitrogen [Mass/Vol] 18 mg/dL Normal 7-18 [facility] Comment on above: Order Comment: 'TROP ' Serial specimen #1, #2 or #3: 1 Performed By: #### L 500.4050, L501.2450, L100.0500, L501.4020 #### [facility] Laboratory [address] [place], [address] Emergency Department Summary on 10-14-2024 Emergency Department Summary [facility] Medical Records Department [address] [place] [address] Emergency Department Summary 10/14/24 MR#: [id number] Acct: [id number] Name: BRENDA LE Rep #: [id number] : 1965 58 From: Tae Holland DO 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 Smoking Status: Former smoker how long ago [...] OF PRESENT ILLNESS: 58-year-old female presents from senior care with concern for nausea vomiting diarrhea. This is noted to begin at 10 AM. Noted sick contacts other members of the senior care who have norovirus. The patient states she had copious nausea and vomiting at 10 AM. Also notes diarrhea. Notes some blood in her stool. Denies fever. Denies recent travel. No sick contacts at her senior care. Denies chest pain. She does note chronic shortness of breath as well. She does note a cough as well. Denies urinary complaints. Last bowel movement was today. REVI (more content not included)... Normal [facility] Eosinophil percentageOrdered By: Lorraine Springer on 10-14-2024 Eosinophils/100 WBC (Bld) 0.4 % 0-5 [facility] Erythrocyte distribution wid th ratioOrdered By: Tae Holland on 10-14-2024 Erythrocyte distribution width (RBC) [Ratio] 13.9 % 11.6-14.6 [facility] Erythrocyte distribution wid th ratioOrdered By: Lorraine Springer on 10-14-2024 Erythrocyte distribution width (RBC) [Ratio] 14.0 % 11.6-14.6 [facility] Erythrocyte distribution wid th standard deviationOrdered By: Tae Holland on 10-14-2024 Erythrocyte distribution width (RBC) [Entitic vol] 44.6 fL High 35.1-43.9 [facility] Erythrocyte distribution wid th standard deviationOrdered By: Lorraine Springer on 10-14-2024 Erythrocyte distribution width (RBC) [Entitic vol] 45.5 fL High 35.1-43.9 [facility] Estimated glomerular filtrat ion rate (GFR) AmericanOrdered By: Tae Holland on 10-14-2024 Estimated GFR (MDRD) Amer 137 mL/min >60 [facility] Comment on above: GFR Calc Glomerular filtration rate ( GFR) estimationOrdered By: Tae Holland on 10-14-2024 Estimated GFR (MDRD) Non-Af Amer 113 mL/min >60 [facility] Comment on above: Non- GFR Calc Glucose measurementOrdered B y: Tae Holland on 10-14-2024 Glucose [Mass/Vol] 171 mg/dL High 74-106 [facility] Comment on above: Fasting Glucose resu lt greater than or equal to 126 mg/dL suggests DIABETES MELLITUS per A.D.A. criteria. Hematocrit Auto (Bld) [Volum e fraction]Ordered By: Tae Holland on 10-14-2024 Hematocrit (Bld) [Volume fraction] 45.8 % 37- [facility] Hematocrit Auto (Bld) [Volum e fraction]Ordered By: Lorraine Springer on 10-14-2024 Hematocrit (Bld) [Volume fraction] 44.2 % 37- [facility] Hemoglobin measurementOrdere d By: Tae Holland on 10-14-2024 Hemoglobin (Bld) [Mass/Vol] 15.1 g/dL High 12.0-15.0 [facility] Hemoglobin measurementOrdere d By: Lorraine Springer on 10-14-2024 Hemoglobin (Bld) [Mass/Vol] 14.4 g/dL 12.0-15.0 [facility] Immature granulocytes/100 WB C Auto (Bld)Ordered By: Lorraine Springer on 10-14-2024 Immature granulocytes/100 WBC (Bld) 0.600 % 0.0-0.9 [facility] Comment on above: IG% - Immature Granu locytes (promyelocytes, myelocytes and metamyelocytes) > 1% indicates that a LEFT SHIFT is Present. Influenza virus A and B and SARS-CoV-2 (COVID-19) and Respiratory syncytial virus RNAOrdered By: Tae Holland on 10-14-2024 SARS-CoV-2 (COVID-19) RNA LUIS M+probe Ql (Unsp spec) [facility] L501.4020on 10-14-2024 TROPONIN-I HS < 3 Low 3.0-54.0 [facility] Comment on above: Order Comment: 'TROP ' Serial specimen #1, #2 or #3: 1 Result Comment: Ck wang Note: New Test Units and Gender Specific Reference Ranges. For more information see Policy Stat Procedure [place] High Sensitivity Troponin (TNIH) and attachments. Performed By: #### L 500.4050, L501.2450, L100.0500, L501.4020 #### [facility] Laboratory [address] [place], [place], [address] Laboratory - Chemistry and C hemistry - challengeOrdered By: Tae Holland on 10-14-2024 AST [Catalytic activity/Vol] 29 U/L 15-37 [facility] Lipaseon 10-14-2024 Lipase [Catalytic activity/Vol] 176 U/L High 13-75 [facility] Comment on above: Order Comment: 'TROP ' Serial specimen #1, #2 or #3: 1 Result Comment: Ck wang note: LIPASE revised reference range effective 23. New Lipase methodology. Expected to produce lower values than the previous assay method. NEW Reference Range: 13 - 75 U/L Performed By: #### L 500.4050, L501.2450, L100.0500, L501.4020 #### [facility] [address] [place], [address] Lipase measurementOrdered By : Tae Holland on 10-14-2024 Lipase [Catalytic activity/Vol] 176 U/L High 13-75 [facility] Comment on above: Please note:LIPASE r evised reference range effective 23. New Lipase methodology. Expected to produce lower values than the previous assay method. NEW Reference Range: 13 - 75 U/L Lymphocytes Auto (Unsp spec) [#/Vol]Ordered By: Lorraine Springer on 10-14-2024 Lymphocytes (Bld) [#/Vol] 1.45 10*3/uL 0.83-4.51 [facility] Lymphocytes/100 WBC Auto (Un sp spec)Ordered By: Lorraine Springer on 10-14-2024 Lymphocytes/100 WBC (Bld) 17.9 % Low 19-41 [facility] M100.678on 10-14-2024 M100.678 Pending SARS-CoV-2 (COVID 19) Negative INFLUENZA A Negative INFLUENZA B Negative RSV PCR Negative Normal [facility] Comment on above: Performed By: #### M 100.678 #### [facility] Laboratory [address] [place], [address] MCV (mean corpuscular volume ) determinationOrdered By: Tae Holland on 10-14-2024 MCV (RBC) [Entitic vol] 88.2 fL 81-99 [facility] MCV (mean corpuscular volume ) determinationOrdered By: Lorraine Springer on 10-14-2024 MCV (RBC) [Entitic vol] 90.0 fL 81-99 [facility] Mean corpuscular hemoglobin (MCH) determinationOrdered By: Tae Holland on 10-14-2024 MCH (RBC) [Entitic mass] 29.1 pg 27.0-32.0 [facility] Mean corpuscular hemoglobin (MCH) determinationOrdered By: Lorraine Springer on 10-14-2024 MCH (RBC) [Entitic mass] 29.3 pg 27.0-32.0 [facility] Mean corpuscular hemoglobin concentration (MCHC) determinationOrdered By: Tae Holland on 10-14-2024 MCHC (RBC) [Mass/Vol] 33.0 g/dL 32-36 [facility] Mean corpuscular hemoglobin concentration (MCHC) determinationOrdered By: Lorraine Springer on 10-14-2024 MCHC (RBC) [Mass/Vol] 32.6 g/dL 32-36 [facility] Mean platelet volume determi nationOrdered By: Tae Holland on 10-14-2024 Platelet mean volume (Bld) [Entitic vol] 9.6 fL 6.2-12.0 [facility] Mean platelet volume determi nationOrdered By: Lorraine Springer on 10-14-2024 Platelet mean volume (Bld) [Entitic vol] 11.1 fL 6.2-12.0 [facility] Monocyte percentageOrdered B y: Lorraine Springer on 10-14-2024 Monocytes/100 WBC (Bld) 9.5 % 0-10 [facility] Neutrophil percentageOrdered By: Lorraine Springer on 10-14-2024 Neutrophils/100 WBC (Bld) 71.1 % High 47-70 [facility] Nucleated red blood cell per centageOrdered By: Lorraine Springer on 10-14-2024 Nucleated RBC/100 WBC (Bld) [Ratio] 0 % 0-5 [facility] Platelet countOrdered By: Vivi Holland on 10-14-2024 Platelets (Bld) [#/Vol] 217 10*3/uL 150-450 [facility] Platelet countOrdered By: Anastacia Springer on 10-14-2024 Platelets (Bld) [#/Vol] 196 10*3/uL 150-450 [facility] Potassium measurementOrdered By: Tea Holland on 10-14-2024 Potassium [Moles/Vol] 4.0 mmol/L 3.5-5.1 [facility] RBC Auto (Bld) [#/Vol]Ordere d By: Tae Holland on 10-14-2024 RBC (Bld) [#/Vol] 5.19 10*6/uL 4.2-5.4 [facility] RBC Auto (Bld) [#/Vol]Ordere d By: Lorraine Springer on 10-14-2024 RBC (Bld) [#/Vol] 4.91 10*6/uL 4.2-5.4 [facility] Serum anion gap measurementO rdered By: Tae Holland on 10-14-2024 Anion gap [Moles/Vol] 10 mmol/L 5-15 [facility] Serum globulin measurementOr dered By: Tae Holland on 10-14-2024 Globulin (S) [Mass/Vol] 4.0 g/dL 2.2-4.2 [facility] Serum or plasma alanine angulo otransferase (ALT) measurementOrdered By: Tae Holland on 10-14-2024 ALT [Catalytic activity/Vol] 49 U/L 13-56 [facility] Serum or plasma albumin lawrence urement (mass/volume)Ordered By: Tae Holland on 10-14-2024 Albumin [Mass/Vol] 3.5 g/dL 3.2-5.0 [facility] Serum or plasma alkaline jakob sphatase measurementOrdered By: Tae Holland on 10-14-2024 ALP [Catalytic activity/Vol] 110 U/L 45-117 [facility] Serum or plasma calcium lawrence urement (mass/volume)Ordered By: Tae Holland on 10-14-2024 Calcium [Mass/Vol] 8.9 mg/dL 8.5-10.1 [facility] Serum or plasma creatinine m easurement (mass/volume)Ordered By: Tae Holland on 10-14-2024 Creatinine [Mass/Vol] 0.58 mg/dL 0.55-1.02 [facility] Comment on above: The validity of the calculated GFR & GFRAA in patients over 70 years has not been determined. Clinical correlation is essential. Serum or plasma urea nitroge n measurement (mass/volume)Ordered By: Tae Holland on 10-14-2024 Urea nitrogen [Mass/Vol] 18 mg/dL 7-18 [facility] Sodium levelOrdered By: Sandra Holland on 10-14-2024 Sodium [Moles/Vol] 129 mmol/L Low 136-145 [facility] Total proteinOrdered By: Gabe Holland on 10-14-2024 Protein [Mass/Vol] 7.5 g/dL 6.4-8.2 [facility] Troponin IOrdered By: Tae Holland on 10-14-2024 Troponin I High Sensitivity < 3 pg/mL Low 3.0-54.0 [facility] Comment on above: Please Note: New Janeth t Units and Gender Specific Reference Ranges. For more information see Policy Stat Procedure [place] High Sensitivity Troponin (TNIH) and attachments. White blood cell (WBC) count Ordered By: Tae Holland on 10-14-2024 WBC (Bld) [#/Vol] 19.5 10*3/uL High 4.4-11.0 [facility] White blood cell (WBC) count Ordered By: Lorraine Springer on 10-14-2024 WBC (Bld) [#/Vol] 8.1 10*3/uL 4.4-11.0 [facility] CNOVon 09-28-2024 CNOV Normal [facility] CNOVon 09-20-2024 CNOV Normal [facility] ECG COMPLETEon 09-20-2024 ECG COMPLETE Normal [facility] Absolute neutrophil countOrd ered By: Lorraine Springer on 09-16-2024 Neutrophils (Bld) [#/Vol] 4.6 10*3/uL 2.0-7.7 [facility] Basophil percentageOrdered B y: Lorraine Springer on 09-16-2024 Basophils/100 WBC (Bld) 0.5 % 0-1 [facility] CBC W/Diff, Automatedon SMEAR COMMENT SCANNED Normal [facility] Comment on above: Performed By: #### L 100.0100 #### [facility] [place], [address] Eosinophil percentageOrdered By: Lorraine Srpinger on 09-16-2024 Eosinophils/100 WBC (Bld) 0.4 % 0-5 [facility] Erythrocyte distribution wid th ratioOrdered By: Lorraine Springer on 09-16-2024 Erythrocyte distribution width (RBC) [Ratio] 14.0 % 11.6-14.6 [facility] Erythrocyte distribution wid th standard deviationOrdered By: Lorraine Springer on 09-16-2024 Erythrocyte distribution width (RBC) [Entitic vol] 44.5 fL High 35.1-43.9 [facility] Hematocrit Auto (Bld) [Volum e fraction]Ordered By: Lorraine Springer on 09-16-2024 Hematocrit (Bld) [Volume fraction] 41.7 % 37-47 [facility] Hemoglobin measurementOrdere d By: Lorraine Springer on 09-16-2024 Hemoglobin (Bld) [Mass/Vol] 13.7 g/dL 12.0-15.0 [facility] Immature granulocytes/100 WB C Auto (Bld)Ordered By: Lorraine Springer on 09-16-2024 Immature granulocytes/100 WBC (Bld) 0.400 % 0.0-0.9 [facility] Comment on above: IG% - Immature Granu locytes (promyelocytes, myelocytes and metamyelocytes) > 1% indicates that a LEFT SHIFT is Present. Lymphocytes Auto (Unsp spec) [#/Vol]Ordered By: Lorraine Springer on 09-16-2024 Lymphocytes (Bld) [#/Vol] 2.60 10*3/uL 0.83-4.51 [facility] Lymphocytes/100 WBC Auto (Un sp spec)Ordered By: Lorraine Springer on 09-16-2024 Lymphocytes/100 WBC (Bld) 33.5 % 19-41 [facility] MCV (mean corpuscular volume ) determinationOrdered By: Lorraine Springer on 09-16-2024 MCV (RBC) [Entitic vol] 88.2 fL 81-99 [facility] Manual differential comment [place] (Bld) [Interp]Ordered By: Lorraine Springer on 09-16-2024 Differential Comment SCANNED [facility] Mean corpuscular hemoglobin (MCH) determinationOrdered By: Lorraine Springer on 09-16-2024 MCH (RBC) [Entitic mass] 29.0 pg 27.0-32.0 [facility] Mean corpuscular hemoglobin concentration (MCHC) determinationOrdered By: Lorraine Springer on 09-16-2024 MCHC (RBC) [Mass/Vol] 32.9 g/dL 32-36 [facility] Mean platelet volume determi nationOrdered By: Lorraine Springer on 09-16-2024 Platelet mean volume (Bld) [Entitic vol] 11.3 fL 6.2-12.0 [facility] Monocyte percentageOrdered B y: Lorraine Springer on 09-16-2024 Monocytes/100 WBC (Bld) 5.7 % 0-10 [facility] Neutrophil percentageOrdered By: Lorraine Springer on 09-16-2024 Neutrophils/100 WBC (Bld) 59.5 % 47-70 [facility] Nucleated red blood cell per centageOrdered By: Lorraine Springer on 09-16-2024 Nucleated RBC/100 WBC (Bld) [Ratio] 0 % 0-5 [facility] Platelet countOrdered By: Anastacia Springer on 09-16-2024 Platelets (Bld) [#/Vol] 198 10*3/uL 150-450 [facility] RBC Auto (Bld) [#/Vol]Ordere d By: Lorraine Springer on 09-16-2024 RBC (Bld) [#/Vol] 4.73 10*6/uL 4.2-5.4 [facility] White blood cell (WBC) count Ordered By: Lorraine Springer on 09-16-2024 WBC (Bld) [#/Vol] 7.8 10*3/uL 4.4-11.0 [facility] CNOVon 09-08-2024 CNOV Normal [facility] Absolute neutrophil countOrd ered By: Lorraine Springer on 08-25-2024 Neutrophils (Bld) [#/Vol] 6.9 10*3/uL 2.0-7.7 [facility] Basophil percentageOrdered B y: Lorraine Springer on 08-25-2024 Basophils/100 WBC (Bld) 0.5 % 0-1 [facility] CBC W/Diff, Automatedon 08-13 Absolute Lymph 2.76 X10 3/uL Normal 0.83-4.51 [facility] Comment on above: Performed By: #### L 500.4050, L501.2450, L100.0500, [id number] #### [facility] [address] [place], [address] Absolute Neut 6.9 X10 3/uL Normal 2.0-7.7 [facility] Comment on above: Performed By: #### L 500.4050, L501.2450, L100.0500, [id number] #### [facility] [address] [place], [address] Basophils/100 WBC (Bld) 0.5 % Normal 0-1 [facility] Comment on above: Performed By: #### L 500.4050, L501.2450, L100.0500, [id number] #### [facility] [address] [place], [address] Eosinophils/100 WBC (Bld) 0.3 % Normal 0-5 [facility] Comment on above: Performed By: #### L 500.4050, L501.2450, L100.0500, [id number] #### [facility] [address] [place], [address] Erythrocyte distribution width (RBC) [Ratio] 13.7 % Normal 11.6-14.6 [facility] Comment on above: Performed By: #### L 500.4050, [id number], L100.0500, [id number] #### [facility] [address] [place], [address] Hematocrit (Bld) [Volume fraction] 44.1 % Normal 37-47 [facility] Comment on above: Performed By: #### L 500.4050, [id number], L100.0500, [id number] #### [facility] [address] [place], [address] Hemoglobin (Bld) [Mass/Vol] 14.4 g/dL Normal 12.0-15.0 [facility] Comment on above: Performed By: #### L 500.4050, [id number], L100.0500, [id number] #### [facility] [address] [facility] [place], [address] IG% 0.900 Normal 0.0-0.9 [facility] Comment on above: Result Comment: IG% - Immature Granulocytes (promyelocytes, myelocytes and metamyelocytes) > 1% indicates that a LEFT SHIFT is Present. Performed By: #### L 500.4050, L501.2450, L100.0500, [id number] #### [facility] [address] [facility] [place], [address] Lymphocytes/100 WBC (Bld) 26.1 % Normal 19-41 [facility] Comment on above: Performed By: #### L 500.4050, [id number], L100.0500, [id number] #### [facility] [address] [place], [address] MCH (RBC) [Entitic mass] 28.9 pg Normal 27.0-32.0 [facility] Comment on above: Performed By: #### L 500.4050, [id number], L100.0500, [id number] #### [facility] [address] [place], [address] MCHC (RBC) [Mass/Vol] 32.7 g/dL Normal 32-36 [facility] Comment on above: Performed By: #### L 500.4050, [id number], L100.0500, [id number] #### [facility] [address] [place], [address] MCV (RBC) [Entitic vol] 88.4 fL Normal 81-99 [facility] Comment on above: Performed By: #### L 500.4050, [id number], L100.0500, [id number] #### [facility] [address] [place], [address] Monocytes/100 WBC (Bld) 7.1 % Normal 0-10 [facility] Comment on above: Performed By: #### L 500.4050, [id number], L100.0500, [id number] #### [facility] [address] [place], [address] Neutrophils/100 WBC (Bld) 65.1 % Normal 47-70 [facility] Comment on above: Performed By: #### L 500.4050, [id number], L100.0500, [id number] #### [facility] [address] [place], [address] Nucleated RBC (Bld) [#/Vol] 0 10*3/uL Normal 0-5 [facility] Comment on above: Performed By: #### L 500.4050, [id number], L100.0500, [id number] #### [facility] [address] [place], [address] Platelet mean volume (Bld) [Entitic vol] 11.1 fL Normal 6.2-12.0 [facility] Comment on above: Performed By: #### L 500.4050, [id number], L100.0500, [id number] #### [facility] [address] [place], [address] Platelets (Bld) [#/Vol] 252 10*3/uL Normal 150-450 [facility] Comment on above: Performed By: #### L 500.4050, [id number], L100.0500, [id number] #### [facility] [address] [place], [address] RBC (Bld) [#/Vol] 4.99 10*6/uL Normal 4.2-5.4 [facility] Comment on above: Performed By: #### L 500.4050, [id number], L100.0500, [id number] #### [facility] [address] [place], [address] RDW SD 44.1 fl High 35.1-43.9 [facility] Comment on above: Performed By: #### L 500.4050, [id number], L100.0500, [id number] #### [facility] [address] [place], [address] WBC (Bld) [#/Vol] 10.6 10*3/uL Normal 4.4-11.0 [facility] Comment on above: Performed By: #### L 500.4050, [id number], L100.0500, [id number] #### [facility] [address] [place], [address] Eosinophil percentageOrdered By: Lorraine Springer on 08-25-2024 Eosinophils/100 WBC (Bld) 0.3 % 0-5 [facility] Erythrocyte distribution wid th ratioOrdered By: Lorraine Springer on 08-25-2024 Erythrocyte distribution width (RBC) [Ratio] 13.7 % 11.6-14.6 [facility] Erythrocyte distribution wid th standard deviationOrdered By: Lorraine Springer on 08-25-2024 Erythrocyte distribution width (RBC) [Entitic vol] 44.1 fL High 35.1-43.9 [facility] Hematocrit Auto (Bld) [Volum e fraction]Ordered By: Lorraine Springer on 08-25-2024 Hematocrit (Bld) [Volume fraction] 44.1 % 37-47 [facility] Hemoglobin measurementOrdere d By: Lorraine Springer on 08-25-2024 Hemoglobin (Bld) [Mass/Vol] 14.4 g/dL 12.0-15.0 [facility] Immature granulocytes/100 WB C Auto (Bld)Ordered By: Lorraine Springer on 08-25-2024 Immature granulocytes/100 WBC (Bld) 0.900 % 0.0-0.9 [facility] Comment on above: IG% - Immature Granu locytes (promyelocytes, myelocytes and metamyelocytes) > 1% indicates that a LEFT SHIFT is Present. Lymphocytes Auto (Unsp spec) [#/Vol]Ordered By: Lorraine Springer on 08-25-2024 Lymphocytes (Bld) [#/Vol] 2.76 10*3/uL 0.83-4.51 [facility] Lymphocytes/100 WBC Auto (Un sp spec)Ordered By: Lorraine Springer on 08-25-2024 Lymphocytes/100 WBC (Bld) 26.1 % 19-41 [facility] MCV (mean corpuscular volume ) determinationOrdered By: Lorraine Springer on 08-25-2024 MCV (RBC) [Entitic vol] 88.4 fL 81-99 [facility] Mean corpuscular hemoglobin (MCH) determinationOrdered By: Lorraine Springer on 08-25-2024 MCH (RBC) [Entitic mass] 28.9 pg 27.0-32.0 [facility] Mean corpuscular hemoglobin concentration (MCHC) determinationOrdered By: Lorraine Springer on 08-25-2024 MCHC (RBC) [Mass/Vol] 32.7 g/dL 32-36 [facility] Mean platelet volume determi nationOrdered By: Lorraine Springer on 08-25-2024 Platelet mean volume (Bld) [Entitic vol] 11.1 fL 6.2-12.0 [facility] Monocyte percentageOrdered B y: Lorraine Springer on 08-25-2024 Monocytes/100 WBC (Bld) 7.1 % 0-10 [facility] Neutrophil percentageOrdered By: Lorraine Springer on 08-25-2024 Neutrophils/100 WBC (Bld) 65.1 % 47-70 [facility] Nucleated red blood cell per centageOrdered By: Lorraine Springer on 08-25-2024 Nucleated RBC/100 WBC (Bld) [Ratio] 0 % 0-5 [facility] Platelet countOrdered By: Anastacia Springer on 08-25-2024 Platelets (Bld) [#/Vol] 252 10*3/uL 150-450 [facility] RBC Auto (Bld) [#/Vol]Ordere d By: Lorraine Springer on 08-25-2024 RBC (Bld) [#/Vol] 4.99 10*6/uL 4.2-5.4 [facility] White blood cell (WBC) count Ordered By: Lorraine Springer on 08-25-2024 WBC (Bld) [#/Vol] 10.6 10*3/uL 4.4-11.0 [facility] CNOVon 08-24-2024 CNOV Normal [facility] CNPNon 08-18-2024 CNPN Normal [facility] CNPNon 08-16-2024 CNPN Normal [facility] CNPNon 07-31-2024 CNPN Normal [facility] CNOVon 07-23-2024 CNOV Normal [facility] CNPNon 07-22-2024 CNPN Normal [facility] CNPNon 07-14-2024 CNPN Normal [facility] CNOVon 07-06-2024 CNOV Normal [facility] CBC W Auto Differential pane l (Bld)on 03-02-2024 Basophils (Bld) [#/Vol] 0.05 10*3/uL [facility] Basophils/100 WBC (Bld) 0.6 % C [facility] Differential cell count method Nom (Bld) Auto [facility] Eosinophils (Bld) [#/Vol] 0.03 10*3/uL [facility] Eosinophils/100 WBC (Bld) 0.3 % [facility] Erythrocyte distribution width (RBC) [Ratio] 13.9 % 11.5 - 15.0 % [facility] Hematocrit (Bld) [Volume fraction] 43.6 % 36.0 - 46.0 % [facility] Hemoglobin (Bld) [Mass/Vol] 14.1 g/dL 11.5 - 15.5 g/dL [facility] Immature granulocytes (Bld) [#/Vol] 0.03 10*3/uL [facility] Immature granulocytes/100 WBC (Bld) 0.3 % [facility] Interpretation and review of laboratory results Abnormal [facility] Lymphocytes (Bld) [#/Vol] 2.53 10*3/uL [facility] Lymphocytes/100 WBC (Bld) 28.7 % [facility] MCH (RBC) [Entitic mass] 28.7 pg 26. 0 - 34.[address] [facility] MCHC (RBC) [Mass/Vol] 32.3 g/dL 30.5 - 36.0 g/dL [facility] MCV (RBC) [Entitic vol] 88.6 fL 80.0 - 100.[address] [facility] Monocytes (Bld) [#/Vol] 0.61 10*3/uL [facility] Monocytes/100 WBC (Bld) 6.9 % C [facility] Neutrophils (Bld) [#/Vol] 5.58 10*3/uL [facility] Neutrophils/100 WBC (Bld) 63.2 % [facility] Nucleated RBC (Bld) [#/Vol] [facility] Nucleated RBC/100 WBC (Bld) [Ratio] 0.0 % /[address] [facility] Platelet mean volume (Bld) [Entitic vol] 12.5 fL 9.0 - 12.[address] [facility] Platelets (Bld) [#/Vol] 123 10*3/uL Low [facility] RBC (Bld) [#/Vol] 4.92 10*6/uL 3.90 - 5.2 0 m/uL [facility] WBC (Bld) [#/Vol] 8.83 10*3/uL [facility] Comprehensive metabolic 2000 panelon 03-02-2024 Albumin [Mass/Vol] 4.2 g/dL 3.9 - 4.9 g/dL [facility] ALP [Catalytic activity/Vol] 139 U/L High 34 - 123 U/L [facility] ALT [Catalytic activity/Vol] 52 U/L High 7 - 38 U/L [facility] Anion gap [Moles/Vol] 13 mmol/L 9 - 18 mmol/L [facility] AST [Catalytic activity/Vol] 38 U/L High 13 - 35 U/L [facility] Bilirubin [Mass/Vol] 0.4 mg/dL 0.2 - 1 .3 mg/dL [facility] Calcium [Mass/Vol] 10.0 mg/dL 8.5 - 10. 2 mg/dL [facility] Chloride [Moles/Vol] 98 mmol/L 97 - 10 5 mmol/L [facility] CO2 [Moles/Vol] 26 mmol/L 22 - 30 mmol/L [facility] Creatinine [Mass/Vol] 0.51 mg/dL Low 0.58 - 0.96 mg/dL [facility] GFR/1.73 sq M.predicted among non-blacks MDRD (S/P/Bld) [Vol rate/Area] 107 mL/min/{1.73_m2} - PINF [facility] Comment on above: Estimated Glomerular Filtration [...] 131 mg/dL High 74 - 99 mg/dL [facility] Comment on above: The [place] Diab[employer] s Association (ADA) provides guidance for [...] Standards of Medical Care in Diabetes 2016, [place] [employer]. Diabetes Care. 2016.39(Suppl 1). Interpretation and review of laboratory results Abnormal [facility] Potassium [Moles/Vol] 4.6 mmol/L 3.7 - 5.1 mmol/L [facility] Protein [Mass/Vol] 7.7 g/dL 6.3 - 8.0 g/dL [facility] Sodium [Moles/Vol] 137 mmol/L 136 - 144 mmol/L [facility] Urea nitrogen [Mass/Vol] 19 mg/dL 7 - 21 mg/dL [facility] FOLATE, SERUMon 03-02-2024 Folate [Mass/Vol] 15.4 ng/mL 4.7 - PINF ng/mL [facility] Folate [Mass/Vol]on 03-02-20 Interpretation and review of laboratory results Normal [facility] HbA1c (Bld)on 03-02-2024 Average glucose Estimated from glycated hemoglobin (Bld) [Mass/Vol] 166 mg/dL [facility] Comment on above: eAG: (Estimated aver age glucose) is a calculated value from HgbA1c and is motor vehicle field representative of the average blood glucose level in the last 2-3 month period. HbA1c (Bld) [Mass fraction] 7.4 % High 4.3 - 5.6 % [facility] Comment on above: [place] [employer] sociation guidelines indicate that patients with HgbA1c in the range 5.7-6.4% are at increased risk for development of diabetes, and intervention by lifestyle modification may be beneficial. HgbA1c greater or equal to 6.5% is considered diagnostic of diabetes. Interpretation and review of laboratory results Abnormal [facility] MAGNESIUMon 03-02-2024 Magnesium [Mass/Vol] 2.3 mg/dL 1.7 - 2 .3 mg/dL [facility] Magnesium [Mass/Vol]on 03-02 Interpretation and review of laboratory results Normal [facility] No Panel Informationon 03-02 Interpretation and review of laboratory results Normal [facility] T4 FREE/FREE THYROXINEon Free T4 [Mass/Vol] 0.9 ng/dL 0.9 - 1.7 ng/dL [facility] THYROID STIMULATING HORMONEo n 03-02-2024 TSH Qn 1.620 m[IU]/L [facility] Urinalysis complete panel (U )on 03-02-2024 Bacteria LM.HPF (Urine sed) [#/Area] Negative Negative /HPF [facility] Bilirubin Ql (U) Negative Negative [facility] Clarity (Unsp spec) Clear Clear [facility] Color (U) Yellow Yellow [facility] Epithelial cells LM.HPF (Urine sed) [#/Area] None Seen /HPF [facility] Glucose Test strip (U) [Mass/Vol] 3+ Abnormal Negative [facility] [facility] Hemoglobin Ql (U) Negative Negative [facility] Hyaline casts (Urine sed) [#/Area] 0 /[LPF] 0 /LPF [facility] Interpretation and review of laboratory results Abnormal [facility] Ketones Ql (U) Negative Negative [facility] Leukocyte esterase Test strip Ql (U) Negative Negative [facility] Nitrite Ql (U) Negative Negative [facility] pH (U) 6.5 [pH] NINF - 8.[address] [facility] Protein (U) [Mass/Vol] Negative Negative Cl [facility] RBC LM.HPF (Urine sed) [#/Area] 0-2 /HPF 0-2 /HPF [facility] Specific gravity (U) [Rel density] 1.009 1.005 - 1.[address] [facility] Urobilinogen Ql (U) 0.2 EU/dL 0.2-1.0 EU/dL [facility] WBC LM.HPF (Urine sed) [#/Area] 0-5 /HPF 0-5 /HPF [facility] This test was devmargieo ped and its performance characteristics determined by [facility] Pathology and Laboratory Medicine [place] [facility] It has not been cleared or approved by the FDA. [facility] is regulated under CLIA as qualified to perform high-complexity testing. This test is used for clinical purposes. It should not be regarded as investigational or for research. [facility] Absolute lymphocyte countOrd ered By: Lorraine Springer on 02-03-2024 Lymphocytes Auto (Unsp spec) [#/Vol] 2.53 10*3/uL 0.83-4.51 [facility] Automated lymphocyte count a s percentage of total leukocytesOrdered By: Lorranie Springer on 02-03-2024 Lymphocytes/100 WBC Auto (Unsp spec) 25.5 % 19-41 [facility] Basophil percentageOrdered B y: Lorraine Springer on 02-03-2024 Basophils/100 WBC (Bld) 0.4 % 0-1 [facility] Eosinophils/100 WBC (Bld) 0.5 % 0-5 [facility] Hemoglobin (Bld) [Mass/Vol] 13.5 g/dL 12.0-15.0 [facility] Monocytes/100 WBC (Bld) 6.8 % 0-10 [facility] Neutrophils (Bld) [#/Vol] 6.6 10*3/uL 2.0-7.7 [facility] Neutrophils/100 WBC (Bld) 66.5 % 47-70 [facility] WBC (Bld) [#/Vol] 9.9 10*3/uL 4.4-11.0 [facility] Determination of erythrocyte mean corpuscular volume (MCV)Ordered By: Lorraine Springer on 02-03-2024 MCV (RBC) [Entitic vol] 88.7 fL 81-99 [facility] Erythrocyte distribution wid th ratioOrdered By: Lorraine Springer on 02-03-2024 Erythrocyte distribution width (RBC) [Ratio] 13.8 % 11.6-14.6 [facility] Erythrocyte distribution wid th standard deviationOrdered By: Lorraine Springer on 02-03-2024 Erythrocyte distribution width (RBC) [Entitic vol] 44.4 fL 35.1-43.9 [facility] Hematocrit Auto (Bld) [Volum e fraction]Ordered By: Lorraine Springer on 02-03-2024 Hematocrit (Bld) [Volume fraction] 41.7 % 37-47 [facility] Immature granulocytes/100 WB C Auto (Bld)Ordered By: Lorraine Springer on 02-03-2024 Immature granulocytes/100 WBC (Bld) 0.300 % 0.0-0.9 [facility] Comment on above: IG% - Immature Granu locytes (promyelocytes, myelocytes and metamyelocytes) > 1% indicates that a LEFT SHIFT is Present. Laboratory - Hematology and Cell countsOrdered By: Lorraine Springer on 02-03-2024 MCH (RBC) [Entitic mass] 28.7 pg 27.0-32.0 [facility] MCHC (RBC) [Mass/Vol] 32.4 g/dL 32-36 [facility] Nucleated RBC/100 WBC (Bld) [Ratio] 0 % 0-5 [facility] Platelet mean volume (Bld) [Entitic vol] 11.1 fL 6.2-12.0 [facility] Platelets (Bld) [#/Vol] 190 10*3/uL 150-450 [facility] RBC Auto (Bld) [#/Vol]Ordere d By: Lorraine Springer on 02-03-2024 RBC (Bld) [#/Vol] 4.70 10*6/uL 4.2-5.4 [facility] Absolute lymphocyte countOrd ered By: Lorraine Springer on 01-07-2024 Lymphocytes Auto (Unsp spec) [#/Vol] 1.58 10*3/uL 0.83-4.51 [facility] Automated lymphocyte count a s percentage of total leukocytesOrdered By: Lorraine Springer on 01-07-2024 Lymphocytes/100 WBC Auto (Unsp spec) 21.1 % 19-41 [facility] Basophil percentageOrdered B y: Lorraine Springer on 01-07-2024 Basophils/100 WBC (Bld) 0.4 % 0-1 [facility] Eosinophils/100 WBC (Bld) 0.1 % 0-5 [facility] Hemoglobin (Bld) [Mass/Vol] 13.1 g/dL 12.0-15.0 [facility] Monocytes/100 WBC (Bld) 3.7 % 0-10 [facility] Neutrophils (Bld) [#/Vol] 5.6 10*3/uL 2.0-7.7 [facility] Neutrophils/100 WBC (Bld) 74.3 % 47-70 [facility] WBC (Bld) [#/Vol] 7.5 10*3/uL 4.4-11.0 [facility] Determination of erythrocyte mean corpuscular volume (MCV)Ordered By: Lorraine Springer on 01-07-2024 MCV (RBC) [Entitic vol] 89.5 fL 81-99 [facility] Erythrocyte distribution wid th ratioOrdered By: Lorraine Springer on 01-07-2024 Erythrocyte distribution width (RBC) [Ratio] 13.7 % 11.6-14.6 [facility] Erythrocyte distribution wid th standard deviationOrdered By: Lorraine Springer on 01-07-2024 Erythrocyte distribution width (RBC) [Entitic vol] 44.7 fL 35.1-43.9 [facility] Hematocrit Auto (Bld) [Volum e fraction]Ordered By: Lorraine Springer on 01-07-2024 Hematocrit (Bld) [Volume fraction] 41.1 % 37-47 [facility] Immature granulocytes/100 WB C Auto (Bld)Ordered By: [facility] on 01-07-2024 Immature granulocytes/100 WBC (Bld) 0.400 % 0.0-0.9 [facility] Comment on above: IG% - Immature Granu locytes (promyelocytes, myelocytes and metamyelocytes) > 1% indicates that a LEFT SHIFT is Present. Laboratory - Hematology and Cell countsOrdered By: Lorraine Springer on 01-07-2024 MCH (RBC) [Entitic mass] 28.5 pg 27.0-32.0 [facility] MCHC (RBC) [Mass/Vol] 31.9 g/dL 32-36 [facility] Nucleated RBC/100 WBC (Bld) [Ratio] 0 % 0-5 [facility] Platelet mean volume (Bld) [Entitic vol] 10.8 fL 6.2-12.0 [facility] Platelets (Bld) [#/Vol] 188 10*3/uL 150-450 [facility] RBC Auto (Bld) [#/Vol]Ordere d By: Lorraine Springer on 01-07-2024 RBC (Bld) [#/Vol] 4.59 10*6/uL 4.2-5.4 [facility] Absolute lymphocyte countOrd ered By: Jey Quesada on 12-13-2023 Lymphocytes Auto (Unsp spec) [#/Vol] 1.30 10*3/uL 0.83-4.51 [facility] Automated lymphocyte count a s percentage of total leukocytesOrdered By: Jey Quesada on 12-13-2023 Lymphocytes/100 WBC Auto (Unsp spec) 8.5 % 19-41 [facility] Basophil percentageOrdered B y: Jey Quesada on 12-13-2023 Basophil percentage 0-5 SEEN /hpf 0-5 [facility] Basophils/100 WBC (Bld) 0.2 % 0-1 [facility] Bilirubin [Mass/Vol] 0.50 mg/dL 0.20-1.00 [facility] Comment on above: For patients on eltr ombopag therapy, use of Dimension [place] TBIL is not recommended. Chloride [Moles/Vol] 100 mmol/L 98-107 [facility] Eosinophils/100 WBC (Bld) 0.3 % 0-5 [facility] Glucose [Mass/Vol] 146 mg/dL 74-106 [facility] Comment on above: Fasting Glucose resu lt greater than or equal to 126 mg/dL suggests DIABETES MELLITUS per A.D.A. criteria. Hemoglobin (Bld) [Mass/Vol] 14.1 g/dL 12.0-15.0 [facility] Monocytes/100 WBC (Bld) 7.2 % 0-10 [facility] Neutrophils (Bld) [#/Vol] 12.8 10*3/uL 2.0-7.7 [facility] Neutrophils/100 WBC (Bld) 83.5 % 47-70 [facility] Potassium [Moles/Vol] 4.1 mmol/L 3.5-5.1 [facility] Protein [Mass/Vol] 7.2 g/dL 6.4-8.2 [facility] Sodium [Moles/Vol] 129 mmol/L 136-145 [facility] WBC (Bld) [#/Vol] 15.3 10*3/uL 4.4-11.0 [facility] Bilirubin Test strip Ql (U)O rdered By: Jey Quesada on 12-13-2023 Bilirubin Ql (U) Negative Negative [facility] Determination of erythrocyte mean corpuscular volume (MCV)Ordered By: Jey Quesada on 12-13-2023 MCV (RBC) [Entitic vol] 87.1 fL 81-99 [facility] Erythrocyte distribution wid th ratioOrdered By: Jey Quesada on 12-13-2023 Erythrocyte distribution width (RBC) [Ratio] 13.5 % 11.6-14.6 [facility] Erythrocyte distribution wid th standard deviationOrdered By: Jey Quesada on 12-13-2023 Erythrocyte distribution width (RBC) [Entitic vol] 42.6 fL 35.1-43.9 [facility] Hematocrit Auto (Bld) [Volum e fraction]Ordered By: Jey Quesada on 12-13-2023 Hematocrit (Bld) [Volume fraction] 42.7 % 37-47 [facility] Immature granulocytes/100 WB C Auto (Bld)Ordered By: Jey Quesada on 12-13-2023 Immature granulocytes/100 WBC (Bld) 0.300 % 0.0-0.9 [facility] Comment on above: IG% - Immature Granu locytes (promyelocytes, myelocytes and metamyelocytes) > 1% indicates that a LEFT SHIFT is Present. Ketones Test strip Ql (U)Ord ered By: Jey Quesada on 12-13-2023 Ketones Ql (U) 5 mg/dl Negative [facility] Laboratory - Chemistry and C hemistry - challengeOrdered By: Jey Quesada on 12-13-2023 Albumin/Globulin [Mass ratio] 0.9 {ratio} 0.9-2.4 [facility] ALP [Catalytic activity/Vol] 141 U/L 45-117 [facility] ALT [Catalytic activity/Vol] 43 U/L 13-56 [facility] CO2 [Moles/Vol] 22.0 mmol/L 21.0-32.0 [facility] Globulin (S) [Mass/Vol] 3.7 g/dL 2.2-4.2 [facility] Lipase [Catalytic activity/Vol] 37 U/L 13-75 [facility] Comment on above: Please note:LIPASE r evised reference range effective 23. New Lipase methodology. Expected to produce lower values than the previous assay method. NEW Reference Range: 13 - 75 U/L Urea nitrogen/Creatinine [Mass ratio] 39.8 mg/mg 10-20 [facility] Laboratory - Hematology and Cell countsOrdered By: Jey Quesada on 12-13-2023 MCH (RBC) [Entitic mass] 28.8 pg 27.0-32.0 [facility] MCHC (RBC) [Mass/Vol] 33.0 g/dL 32-36 [facility] Nucleated RBC/100 WBC (Bld) [Ratio] 0 % 0-5 [facility] Platelet mean volume (Bld) [Entitic vol] 9.5 fL 6.2-12.0 [facility] Platelets (Bld) [#/Vol] 226 10*3/uL 150-450 [facility] Laboratory - Microbiology an d Antimicrobial susceptibilityOrdered By: Jey Quesada on 12-13-2023 SARS-CoV-2 (COVID-19) RNA LUIS M+probe Ql (Unsp spec) [facility] SARS-CoV-2 (COVID-19) RNA LUIS M+probe Ql (Unsp spec) [facility] Mucus LM Ql (Urine sed)Order ed By: Jey Quesada on 12-13-2023 Mucus Ql (Urine sed) 0 SEEN /hpf [facility] Nitrite Test strip Ql (U)Ord ered By: Jey Quesada on 12-13-2023 Nitrite Ql (U) Negative Negative [facility] No Panel InformationOrdered By: Jey Quesada on 12-13-2023 Urine RBC 0 SEEN /hpf 0-5 [facility] Estimated Creatinine Clearance Calc 104.39 ml/min [facility] Estimated GFR (MDRD) Amer 144 mL/min >60 [facility] Comment on above: GFR Calc Estimated GFR (MDRD) Non-Af Amer 119 mL/min >60 [facility] Comment on above: Non- GFR Calc Protein Test strip Ql (U)Ord ered By: Jey Quesada on 12-13-2023 Protein Ql (U) Negative Negative [facility] RBC Auto (Bld) [#/Vol]Ordere d By: Jey Quesada on 12-13-2023 RBC (Bld) [#/Vol] 4.90 10*6/uL 4.2-5.4 [facility] Serum or plasma calcium lawrence urement (mass/volume)Ordered By: Jey Quesada on 12-13-2023 Calcium [Mass/Vol] 9.1 mg/dL 8.5-10.1 [facility] r Serum or plasma creatinine m easurement (mass/volume)Ordered By: Jey Quesada on 12-13-2023 Creatinine [Mass/Vol] 0.55 mg/dL 0.55-1.02 [facility] Comment on above: The validity of the calculated GFR & GFRAA in patients over 70 years has not been determined. Clinical correlation is essential. Serum or plasma urea nitroge n measurement (mass/volume)Ordered By: Jey Quesada on 12-13-2023 Urea nitrogen [Mass/Vol] 22 mg/dL 7-18 [facility] Squamous epithelial cells de tection in urine sediment by light microscopyOrdered By: Jey Quesada on 12-13-2023 Epithelial cells.squamous LM Ql (Urine sed) 0-5 SEEN /hpf 5-10 [facility] Thin prep Papanicolaou smear with manual screeningOrdered By: Jey Quesada on 12-13-2023 Thin prep Papanicolaou smear with manual screening 3.5 g/dL 3.2-5.0 [facility] Thin prep Papanicolaou smear with manual screening 23 U/L 15-37 [facility] Thin prep Papanicolaou smear with manual screening 7 5-15 [facility] Urine blood detectionOrdered By: Jey Quesada on 12-13-2023 RBC Ql (U) Negative Negative [facility] Urine clarityOrdered By: Trevor Quesada on 12-13-2023 Clarity (U) Clear Clear [facility] Urine color determinationOrd ered By: Jey Quesada on 12-13-2023 Color (U) Straw Yellow [facility] Urine glucose detectionOrder ed By: Jey Quesada on 12-13-2023 Glucose Ql (U) 1000 mg/dl Normal [facility] Urine leukocyte esterase det ection by dipstickOrdered By: Jey Quesada on 12-13-2023 Leukocyte esterase Test strip Ql (U) 25 /ul Negative [facility] Urine pHOrdered By: Jey holloway on 12-13-2023 pH (U) 6.0 [pH] 5.0 - 8.0 [facility] Urine sediment bacteria coun t by microscopy (number/high power field)Ordered By: Jey Quesada on 12-13-2023 Bacteria LM.HPF (Urine sed) [#/Area] 0 /[HPF] None Seen [facility] Urine specific gravity measu rementOrdered By: Jey Quesada on 12-13-2023 Specific gravity (U) [Rel density] 1.010 1.002-1.030 [facility] Urine urobilinogen measureme ntOrdered By: Jey Quesada on 12-13-2023 Urobilinogen Ql (U) Normal mg/dl Normal [facility] Absolute lymphocyte countOrd ered By: Lorraine Springer on 11-19-2023 Lymphocytes Auto (Unsp spec) [#/Vol] 2.19 10*3/uL 0.83-4.51 [facility] Automated lymphocyte count a s percentage of total leukocytesOrdered By: Lorraine Springer on 11-19-2023 Lymphocytes/100 WBC Auto (Unsp spec) 23.3 % 19-41 [facility] Basophil percentageOrdered B y: Lorraine Springer on 11-19-2023 Basophils/100 WBC (Bld) 0.5 % 0-1 [facility] Eosinophils/100 WBC (Bld) 0.1 % 0-5 [facility] Hemoglobin (Bld) [Mass/Vol] 14.6 g/dL 12.0-15.0 [facility] Monocytes/100 WBC (Bld) 5.8 % 0-10 [facility] Neutrophils (Bld) [#/Vol] 6.6 10*3/uL 2.0-7.7 [facility] Neutrophils/100 WBC (Bld) 69.9 % 47-70 [facility] WBC (Bld) [#/Vol] 9.4 10*3/uL 4.4-11.0 [facility] Determination of erythrocyte mean corpuscular volume (MCV)Ordered By: Lorraine Springer on 11-19-2023 MCV (RBC) [Entitic vol] 90.4 fL 81-99 [facility] Erythrocyte distribution wid th ratioOrdered By: Lorraine Springer on 11-19-2023 Erythrocyte distribution width (RBC) [Ratio] 13.6 % 11.6-14.6 [facility] Erythrocyte distribution wid th standard deviationOrdered By: Lorraine Springer on 11-19-2023 Erythrocyte distribution width (RBC) [Entitic vol] 45.4 fL 35.1-43.9 [facility] Hematocrit Auto (Bld) [Volum e fraction]Ordered By: Lorraine Springer on 11-19-2023 Hematocrit (Bld) [Volume fraction] 46.2 % 37-47 [facility] Immature granulocytes/100 WB C Auto (Bld)Ordered By: Lorraine Springer on 11-19-2023 Immature granulocytes/100 WBC (Bld) 0.400 % 0.0-0.9 [facility] Comment on above: IG% - Immature Granu locytes (promyelocytes, myelocytes and metamyelocytes) > 1% indicates that a LEFT SHIFT is Present. Laboratory - Hematology and Cell countsOrdered By: Lorraine Springer on 11-19-2023 MCH (RBC) [Entitic mass] 28.6 pg 27.0-32.0 [facility] MCHC (RBC) [Mass/Vol] 31.6 g/dL 32-36 [facility] Nucleated RBC/100 WBC (Bld) [Ratio] 0 % 0-5 [facility] Platelet mean volume (Bld) [Entitic vol] 11.3 fL 6.2-12.0 [facility] Platelets (Bld) [#/Vol] 202 10*3/uL 150-450 [facility] RBC Auto (Bld) [#/Vol]Ordere d By: Lorraine Springer on 11-19-2023 RBC (Bld) [#/Vol] 5.11 10*6/uL 4.2-5.4 [facility] Absolute lymphocyte countOrd ered By: Lorraine Springer on 10-22-2023 Lymphocytes Auto (Unsp spec) [#/Vol] 1.91 10*3/uL 0.83-4.51 [facility] Basophil percentageOrdered B y: Lorraine Springer on 10-22-2023 Basophils/100 WBC (Bld) 0.6 % 0-1 [facility] Eosinophils/100 WBC (Bld) 4.5 % 0-5 [facility] Neutrophils (Bld) [#/Vol] 5.2 10*3/uL 2.0-7.7 [facility] Neutrophils/100 WBC (Bld) 62.0 % 47-70 [facility] WBC (Bld) [#/Vol] 8.3 10*3/uL 4.4-11.0 [facility] Blood erythrocytes count (nu mber/volume)Ordered By: Lorraine Springer on 10-22-2023 RBC (Bld) [#/Vol] 4.95 10*6/uL 4.2-5.4 [facility] Blood hemoglobin measurement (mass/volume)Ordered By: Lorraine Springer on 10-22-2023 Hemoglobin (Bld) [Mass/Vol] 14.4 g/dL 12.0-15.0 [facility] Blood lymphocytes/100 leukoc ytesOrdered By: Lorraine Springer on 10-22-2023 Lymphocytes/100 WBC (Bld) 23.0 % 19-41 [facility] Blood manual differential co mment interpretation (narrative result)Ordered By: Lorraine Springer on 10-22-2023 Manual differential comment [place] (Bld) [Interp] SCANNED [facility] Blood monocytes/100 leukocyt esOrdered By: Lorraine Springer on 10-22-2023 Monocytes/100 WBC (Bld) 9.5 % 0-10 [facility] Blood platelet mean volumeOr dered By: Lorraine Springer on 10-22-2023 Platelet mean volume (Bld) [Entitic vol] 9.9 fL 6.2-12.0 [facility] Determination of erythrocyte mean corpuscular volume (MCV)Ordered By: Lorraine Springer on 10-22-2023 MCV (RBC) [Entitic vol] 90.7 fL 81-99 [facility] Hematocrit Auto (Bld) [Volum e fraction]Ordered By: Lorraine Springer on 10-22-2023 Hematocrit (Bld) [Volume fraction] 44.9 % 37-47 [facility] Laboratory - Hematology and Cell countsOrdered By: Lorraine Springer on 10-22-2023 Erythrocyte distribution width (RBC) [Entitic vol] 46.6 fL 35.1-43.9 [facility] Erythrocyte distribution width (RBC) [Ratio] 14.0 % 11.6-14.6 [facility] Immature granulocytes/100 WBC (Bld) 0.400 % 0.0-0.9 [facility] Comment on above: IG% - Immature Granu locytes (promyelocytes, myelocytes and metamyelocytes) > 1% indicates that a LEFT SHIFT is Present. MCH (RBC) [Entitic mass] 29.1 pg 27.0-32.0 [facility] Nucleated RBC/100 WBC (Bld) [Ratio] 0 % 0-5 [facility] MCHC Auto (RBC) [Mass/Vol]Or dered By: Lorraine Springer on 10-22-2023 MCHC (RBC) [Mass/Vol] 32.1 g/dL 32-36 [facility] Platelets bldOrdered By: Moon Springer on 10-22-2023 Platelets (Bld) [#/Vol] 217 10*3/uL 150-450 [facility] Absolute lymphocyte countOrd ered By: Lorraine Springer on 09-17-2023 Lymphocytes Auto (Unsp spec) [#/Vol] 1.96 10*3/uL 0.83-4.51 [facility] Basophil percentageOrdered B y: Lorraine Springer on 09-17-2023 Basophils/100 WBC (Bld) 0.6 % 0-1 [facility] Eosinophils/100 WBC (Bld) 0.0 % 0-5 [facility] Neutrophils (Bld) [#/Vol] 4.6 10*3/uL 2.0-7.7 [facility] Neutrophils/100 WBC (Bld) 65.4 % 47-70 [facility] WBC (Bld) [#/Vol] 7.0 10*3/uL 4.4-11.0 [facility] Blood erythrocytes count (nu mber/volume)Ordered By: Lorraine Springer on 09-17-2023 RBC (Bld) [#/Vol] 4.75 10*6/uL 4.2-5.4 [facility] Blood hemoglobin measurement (mass/volume)Ordered By: Lorraine Springer on 09-17-2023 Hemoglobin (Bld) [Mass/Vol] 13.8 g/dL 12.0-15.0 [facility] Blood lymphocytes/100 leukoc ytesOrdered By: Lorraine Springer on 09-17-2023 Lymphocytes/100 WBC (Bld) 28.1 % 19-41 [facility] Blood monocytes/100 leukocyt esOrdered By: Lorraine Springer on 09-17-2023 Monocytes/100 WBC (Bld) 5.6 % 0-10 [facility] Blood platelet mean volumeOr dered By: Lorraine Springer on 09-17-2023 Platelet mean volume (Bld) [Entitic vol] 10.9 fL 6.2-12.0 [facility] Determination of erythrocyte mean corpuscular volume (MCV)Ordered By: Lorraine Springer on 09-17-2023 MCV (RBC) [Entitic vol] 92.4 fL 81-99 [facility] Hematocrit Auto (Bld) [Volum e fraction]Ordered By: Lorraine Springer on 09-17-2023 Hematocrit (Bld) [Volume fraction] 43.9 % 37-47 [facility] Laboratory - Hematology and Cell countsOrdered By: Lorraine Springer on 09-17-2023 Erythrocyte distribution width (RBC) [Entitic vol] 46.8 fL 35.1-43.9 [facility] Erythrocyte distribution width (RBC) [Ratio] 13.8 % 11.6-14.6 [facility] Immature granulocytes/100 WBC (Bld) 0.300 % 0.0-0.9 [facility] Comment on above: IG% - Immature Granu locytes (promyelocytes, myelocytes and metamyelocytes) > 1% indicates that a LEFT SHIFT is Present. MCH (RBC) [Entitic mass] 29.1 pg 27.0-32.0 [facility] Nucleated RBC/100 WBC (Bld) [Ratio] 0 % 0-5 [facility] MCHC Auto (RBC) [Mass/Vol]Or dered By: Lorraine Springer on 09-17-2023 MCHC (RBC) [Mass/Vol] 31.4 g/dL 32-36 [facility] Platelets bldOrdered By: Moon Springer on 09-17-2023 Platelets (Bld) [#/Vol] 210 10*3/uL 150-450 [facility] Absolute lymphocyte countOrd ered By: Lorraine Springer on 08-19-2023 Lymphocytes Auto (Unsp spec) [#/Vol] 2.06 10*3/uL 0.83-4.51 [facility] [facility] Bas[facility] percentageOrdered B y: Lorraine Springer on 08-19-2023 Basophils/100 WBC (Bld) 0.4 % 0-1 [facility] Eosinophils/100 WBC (Bld) 3.3 % 0-5 [facility] Neutrophils (Bld) [#/Vol] 13.0 10*3/uL 2.0-7.7 [facility] Neutrophils/100 WBC (Bld) 79.2 % 47-70 [facility] WBC (Bld) [#/Vol] 16.5 10*3/uL 4.4-11.0 [facility] Blood erythrocytes count (nu mber/volume)Ordered By: Lorraine Springer on 08-19-2023 RBC (Bld) [#/Vol] 5.07 10*6/uL 4.2-5.4 [facility] Blood hemoglobin measurement (mass/volume)Ordered By: Lorraine Springer on 08-19-2023 Hemoglobin (Bld) [Mass/Vol] 14.7 g/dL 12.0-15.0 [facility] Blood lymphocytes/100 leukoc ytesOrdered By: Lorraine Springer on 08-19-2023 Lymphocytes/100 WBC (Bld) 12.5 % 19-41 [facility] Blood monocytes/100 leukocyt esOrdered By: Lorraine Springer on 08-19-2023 Monocytes/100 WBC (Bld) 3.3 % 0-10 [facility] Blood platelet mean volumeOr dered By: Lorraine Springer on 08-19-2023 Platelet mean volume (Bld) [Entitic vol] 11.3 fL 6.2-12.0 [facility] Determination of erythrocyte mean corpuscular volume (MCV)Ordered By: Lorraine Springer on 08-19-2023 MCV (RBC) [Entitic vol] 89.7 fL 81-99 [facility] Hematocrit Auto (Bld) [Volum e fraction]Ordered By: Lorraine Springer on 08-19-2023 Hematocrit (Bld) [Volume fraction] 45.5 % 37-47 [facility] Laboratory - Hematology and Cell countsOrdered By: Lorraine Springer on 08-19-2023 Erythrocyte distribution width (RBC) [Entitic vol] 42.5 fL 35.1-43.9 [facility] Erythrocyte distribution width (RBC) [Ratio] 13.1 % 11.6-14.6 [facility] Immature granulocytes/100 WBC (Bld) 1.300 % 0.0-0.9 [facility] Comment on above: IG% - Immature Granu locytes (promyelocytes, myelocytes and metamyelocytes) > 1% indicates that a LEFT SHIFT is Present. MCH (RBC) [Entitic mass] 29.0 pg 27.0-32.0 [facility] Nucleated RBC/100 WBC (Bld) [Ratio] 0 % 0-5 [facility] MCHC Auto (RBC) [Mass/Vol]Or dered By: Lorraine Springer on 08-19-2023 MCHC (RBC) [Mass/Vol] 32.3 g/dL 32-36 [facility] Platelets bldOrdered By: Moon Springer on 08-19-2023 Platelets (Bld) [#/Vol] 256 10*3/uL 150-450 [facility] Absolute lymphocyte countOrd ered By: Hesham Noguera on 08-16-2023 Lymphocytes Auto (Unsp spec) [#/Vol] 2.00 10*3/uL 0.83-4.51 [facility] Basophil percentageOrdered B y: Hesham Noguera on 08-16-2023 Basophil percentage 3.1 mg/dL 2.5-4.9 [facility] Basophils/100 WBC (Bld) 0.2 % 0-1 [facility] Chloride [Moles/Vol] 107 mmol/L 98-107 [facility] Eosinophils/100 WBC (Bld) 0.0 % 0-5 [facility] Glucose [Mass/Vol] 173 mg/dL 74-106 [facility] Comment on above: Fasting Glucose resu lt greater than or equal to 126 mg/dL suggests DIABETES MELLITUS per A.D.A. criteria. Neutrophils (Bld) [#/Vol] 12.8 10*3/uL 2.0-7.7 [facility] Neutrophils/100 WBC (Bld) 81.8 % 47-70 [facility] Potassium [Moles/Vol] 4.2 mmol/L 3.5-5.1 [facility] Sodium [Moles/Vol] 140 mmol/L 136-145 [facility] WBC (Bld) [#/Vol] 15.7 10*3/uL 4.4-11.0 [facility] Blood erythrocytes count (nu mber/volume)Ordered By: Hesham Noguera on 08-16-2023 RBC (Bld) [#/Vol] 4.49 10*6/uL 4.2-5.4 [facility] Blood hemoglobin measurement (mass/volume)Ordered By: Hesham Noguera on 08-16-2023 Hemoglobin (Bld) [Mass/Vol] 13.1 g/dL 12.0-15.0 [facility] Blood lymphocytes/100 leukoc ytesOrdered By: Hesham Noguera on 08-16-2023 Lymphocytes/100 WBC (Bld) 12.7 % 19-41 [facility] Blood monocytes/100 leukocyt esOrdered By: Hesham Noguera on 08-16-2023 Monocytes/100 WBC (Bld) 4.6 % 0-10 [facility] Blood platelet mean volumeOr dered By: Hesham Noguera on 08-16-2023 Platelet mean volume (Bld) [Entitic vol] 11.2 fL 6.2-12.0 [facility] Determination of erythrocyte mean corpuscular volume (MCV)Ordered By: Hesham Noguera on 08-16-2023 MCV (RBC) [Entitic vol] 92.4 fL 81-99 [facility] Glucose Glucometer (dC) [M ass/Vol]Ordered By: Hesham Noguera on 08-16-2023 Glucose [Mass/Vol] 206 mg/dL 74-106 [facility] Comment on above: MANAGEMENT OF PATIEN T CARE PER NURSING PROTOCOL Hematocrit Auto (Bld) [Volum e fraction]Ordered By: Hesham Noguera on 08-16-2023 Hematocrit (Bld) [Volume fraction] 41.5 % 37-47 [facility] Laboratory - Chemistry and C hemistry - challengeOrdered By: Hesham Noguera on 08-16-2023 CO2 [Moles/Vol] 24.0 mmol/L 21.0-32.0 [facility] Magnesium [Mass/Vol] 2.4 mg/dL 1.6-2.6 [facility] Urea nitrogen/Creatinine [Mass ratio] 31.3 mg/mg 10-20 [facility] Laboratory - Hematology and Cell countsOrdered By: Hesham Noguera on 08-16-2023 Erythrocyte distribution width (RBC) [Entitic vol] 46.0 fL 35.1-43.9 [facility] Erythrocyte distribution width (RBC) [Ratio] 13.5 % 11.6-14.6 [facility] Immature granulocytes/100 WBC (Bld) 0.700 % 0.0-0.9 [facility] Comment on above: IG% - Immature Granu locytes (promyelocytes, myelocytes and metamyelocytes) > 1% indicates that a LEFT SHIFT is Present. MCH (RBC) [Entitic mass] 29.2 pg 27.0-32.0 [facility] Nucleated RBC/100 WBC (Bld) [Ratio] 0 % 0-5 [facility] MCHC Auto (RBC) [Mass/Vol]Or dered By: Hesham Noguera on 08-16-2023 MCHC (RBC) [Mass/Vol] 31.6 g/dL 32-36 [facility] No Panel InformationOrdered By: Hesham Noguera on 08-16-2023 Estimated Creatinine Clearance Calc 89.62 ml/min [facility] Estimated GFR (MDRD) Amer 158 mL/min >60 [facility] Comment on above: GFR Calc Estimated GFR (MDRD) Non-Af Amer 131 mL/min >60 [facility] Comment on above: Non- GFR Calc Platelets bldOrdered By: Wes Noguera on 08-16-2023 Platelets (Bld) [#/Vol] 220 10*3/uL 150-450 [facility] Serum or plasma calcium lawrence urement (mass/volume)Ordered By: Hesham Noguera on 08-16-2023 Calcium [Mass/Vol] 8.9 mg/dL 8.5-10.1 [facility] Serum or plasma creatinine m easurement (mass/volume)Ordered By: Hesham Noguera on 08-16-2023 Creatinine [Mass/Vol] 0.51 mg/dL 0.55-1.02 [facility] Comment on above: The validity of the calculated GFR & GFRAA in patients over 70 years has not been determined. Clinical correlation is essential. Serum or plasma urea nitroge n measurement (mass/volume)Ordered By: Hesham Noguera on 08-16-2023 Urea nitrogen [Mass/Vol] 16 mg/dL 7-18 [facility] Thin prep Papanicolaou smear with manual screeningOrdered By: Hesham Noguera on 08-16-2023 Thin prep Papanicolaou smear with manual screening 9 5-15 [facility] Basophil percentageOrdered B y: Amy Josh on 08-15-2023 Bilirubin [Mass/Vol] 0.70 mg/dL 0.20-1.00 [facility] Comment on above: For patients on eltr ombopag therapy, use of Dimension [place] TBIL is not recommended. Protein [Mass/Vol] 7.5 g/dL 6.4-8.2 [facility] Laboratory - Chemistry and C hemistry - challengeOrdered By: Amy Moreno on 08-15-2023 ALP [Catalytic activity/Vol] 148 U/L 45-117 [facility] ALT [Catalytic activity/Vol] 75 U/L 13-56 [facility] Globulin (S) [Mass/Vol] 4.3 g/dL 2.2-4.2 [facility] Serum or plasma albumin lawrence urement (mass/volume)Ordered By: Amy Moreno on 08-15-2023 Albumin [Mass/Vol] 3.2 g/dL 3.2-5.0 [facility] Serum or plasma albumin/glob ulin mass ratioOrdered By: Amy Moreno on 08-15-2023 Albumin/Globulin [Mass ratio] 0.7 {ratio} 0.9-2.4 [facility] Thin prep Papanicolaou smear with manual screeningOrdered By: Amy Moreno on 08-15-2023 Thin prep Papanicolaou smear with manual screening 32 U/L 15-37 [facility] Absolute lymphocyte countOrd ered By: Jey Quesada on 08-14-2023 Lymphocytes Auto (Unsp spec) [#/Vol] 1.62 10*3/uL 0.83-4.51 [facility] Basophil percentageOrdered B y: Jey Quesada on 08-14-2023 Basophils/100 WBC (Bld) 0.4 % 0-1 [facility] Bilirubin [Mass/Vol] 0.70 mg/dL 0.20-1.00 [facility] Comment on above: For patients on eltr ombopag therapy, use of Dimension [place] TBIL is not recommended. Chloride [Moles/Vol] 102 mmol/L 98-107 [facility] Eosinophils/100 WBC (Bld) 0.0 % 0-5 [facility] Glucose [Mass/Vol] 153 mg/dL 74-106 [facility] Comment on above: Fasting Glucose resu lt greater than or equal to 126 mg/dL suggests DIABETES MELLITUS per A.D.A. criteria. Neutrophils (Bld) [#/Vol] 10.5 10*3/uL 2.0-7.7 [facility] Neutrophils/100 WBC (Bld) 79.4 % 47-70 [facility] Potassium [Moles/Vol] 3.8 mmol/L 3.5-5.1 [facility] Protein [Mass/Vol] 8.0 g/dL 6.4-8.2 [facility] Sodium [Moles/Vol] 137 mmol/L 136-145 [facility] WBC (Bld) [#/Vol] 13.2 10*3/uL 4.4-11.0 [facility] Blood erythrocytes count (nu mber/volume)Ordered By: Jey Quesada on 08-14-2023 RBC (Bld) [#/Vol] 4.85 10*6/uL 4.2-5.4 [facility] Blood hemoglobin measurement (mass/volume)Ordered By: Jey Quesada on 08-14-2023 Hemoglobin (Bld) [Mass/Vol] 14.0 g/dL 12.0-15.0 [facility] Blood lymphocytes/100 leukoc ytesOrdered By: Jey Quesada on 08-14-2023 Lymphocytes/100 WBC (Bld) 12.3 % 19-41 [facility] Blood monocytes/100 leukocyt esOrdered By: Jey Quesada on 08-14-2023 Monocytes/100 WBC (Bld) 7.5 % 0-10 [facility] Blood platelet mean volumeOr dered By: Jey Quesada on 08-14-2023 Platelet mean volume (Bld) [Entitic vol] 10.7 fL 6.2-12.0 [facility] Determination of erythrocyte mean corpuscular volume (MCV)Ordered By: Jey Quesada on 08-14-2023 MCV (RBC) [Entitic vol] 90.7 fL 81-99 [facility] Hematocrit Auto (Bld) [Volum e fraction]Ordered By: Jey Quesada on 08-14-2023 Hematocrit (Bld) [Volume fraction] 44.0 % 37-47 [facility] Laboratory - Chemistry and C hemistry - challengeOrdered By: Jey Quesada on 08-14-2023 ALP [Catalytic activity/Vol] 150 U/L 45-117 [facility] ALT [Catalytic activity/Vol] 72 U/L 13-56 [facility] CO2 [Moles/Vol] 26.0 mmol/L 21.0-32.0 [facility] Globulin (S) [Mass/Vol] 4.2 g/dL 2.2-4.2 [facility] Natriuretic peptide B (Bld) [Mass/Vol] 2.9 pg/mL 0-100 [facility] Urea nitrogen/Creatinine [Mass ratio] 22.2 mg/mg 10-20 [facility] Laboratory - Hematology and Cell countsOrdered By: Jey Quesada on 08-14-2023 Erythrocyte distribution width (RBC) [Entitic vol] 44.6 fL 35.1-43.9 [facility] Erythrocyte distribution width (RBC) [Ratio] 13.4 % 11.6-14.6 [facility] Immature granulocytes/100 WBC (Bld) 0.400 % 0.0-0.9 [facility] Comment on above: IG% - Immature Granu locytes (promyelocytes, myelocytes and metamyelocytes) > 1% indicates that a LEFT SHIFT is Present. MCH (RBC) [Entitic mass] 28.9 pg 27.0-32.0 [facility] Nucleated RBC/100 WBC (Bld) [Ratio] 0 % 0-5 [facility] MCHC Auto (RBC) [Mass/Vol]Or dered By: Jey Quesada on 08-14-2023 MCHC (RBC) [Mass/Vol] 31.8 g/dL 32-36 [facility] No Panel InformationOrdered By: Jey Quesada on 08-14-2023 Estimated Creatinine Clearance Calc 67.22 ml/min [facility] Estimated GFR (MDRD) Amer 114 mL/min >60 [facility] Comment on above: GFR Calc Estimated GFR (MDRD) Non-Af Amer 94 mL/min >60 [facility] Comment on above: Non- GFR Calc Troponin I High Sensitivity < 3 pg/mL 3.0-54.0 [facility] Comment on above: Please Note: New Janeth t Units and Gender Specific Reference Ranges. For more information see Policy Stat Procedure [place] High Sensitivity Troponin (TNIH) and attachments. Platelets bldOrdered By: Trevor Quesada on 08-14-2023 Platelets (Bld) [#/Vol] 182 10*3/uL 150-450 [facility] Respiratory pathogens DNA an d RNA panel LUIS M+probe (Resp)Ordered By: Amy Moreno on 08-14-2023 Respiratory Panel (PCR) Rhinovirus [facility] Serum or plasma albumin lawrence urement (mass/volume)Ordered By: Jey Quesada on 08-14-2023 Albumin [Mass/Vol] 3.8 g/dL 3.2-5.0 [facility] Serum or plasma albumin/glob ulin mass ratioOrdered By: Jey Quesada on 08-14-2023 Albumin/Globulin [Mass ratio] 0.9 {ratio} 0.9-2.4 [facility] Serum or plasma calcium lawrence urement (mass/volume)Ordered By: Jey Quesada on 08-14-2023 Calcium [Mass/Vol] 9.2 mg/dL 8.5-10.1 [facility] Serum or plasma creatinine m easurement (mass/volume)Ordered By: Jey Quesada on 08-14-2023 Creatinine [Mass/Vol] 0.68 mg/dL 0.55-1.02 [facility] Comment on above: The validity of the calculated GFR & GFRAA in patients over 70 years has not been determined. Clinical correlation is essential. Serum or plasma urea nitroge n measurement (mass/volume)Ordered By: Jey Quesada on 08-14-2023 Urea nitrogen [Mass/Vol] 15 mg/dL 7-18 [facility] Serum procalcitonin measurem entOrdered By: Amy Moreno on 08-14-2023 Procalcitonin [Mass/Vol] 0.12 ng/mL 0.00-0.09 [facility] Comment on above: A procalcitonin (PCT ) [...] smear with manual screening 50 U/L 15-37 [facility] Thin prep Papanicolaou smear with manual screening 9 5-15 [facility] Absolute lymphocyte countOrd ered By: Lorraine Springer on 07-17-2023 Lymphocytes Auto (Unsp spec) [#/Vol] 1.66 10*3/uL 0.83-4.51 [facility] Basophil percentageOrdered B y: Lorraine Springer on 07-17-2023 Basophils/100 WBC (Bld) 0.4 % 0-1 [facility] Eosinophils/100 WBC (Bld) 0.3 % 0-5 [facility] Neutrophils (Bld) [#/Vol] 5.9 10*3/uL 2.0-7.7 [facility] Neutrophils/100 WBC (Bld) 73.4 % 47-70 [facility] WBC (Bld) [#/Vol] 8.0 10*3/uL 4.4-11.0 [facility] Blood erythrocytes count (nu mber/volume)Ordered By: Lorraine Springer on 07-17-2023 RBC (Bld) [#/Vol] 4.53 10*6/uL 4.2-5.4 [facility] Blood hemoglobin measurement (mass/volume)Ordered By: Lorraine Springer on 07-17-2023 Hemoglobin (Bld) [Mass/Vol] 13.3 g/dL 12.0-15.0 [facility] Blood lymphocytes/100 leukoc ytesOrdered By: Lorraine Springer on 07-17-2023 Lymphocytes/100 WBC (Bld) 20.8 % 19-41 [facility] Blood monocytes/100 leukocyt esOrdered By: Lorraine Springer on 07-17-2023 Monocytes/100 WBC (Bld) 5.0 % 0-10 [facility] Blood platelet mean volumeOr dered By: Lorraine Springer on 07-17-2023 Platelet mean volume (Bld) [Entitic vol] 9.5 fL 6.2-12.0 [facility] Determination of erythrocyte mean corpuscular volume (MCV)Ordered By: Lorraine Springer on 07-17-2023 MCV (RBC) [Entitic vol] 92.1 fL 81-99 [facility] Hematocrit Auto (Bld) [Volum e fraction]Ordered By: Lorraine Springer on 07-17-2023 Hematocrit (Bld) [Volume fraction] 41.7 % 37-47 [facility] Laboratory - Hematology and Cell countsOrdered By: Lorraine Springer on 07-17-2023 Erythrocyte distribution width (RBC) [Entitic vol] 45.3 fL 35.1-43.9 [facility] Erythrocyte distribution width (RBC) [Ratio] 13.3 % 11.6-14.6 [facility] Immature granulocytes/100 WBC (Bld) 0.100 % 0.0-0.9 [facility] Comment on above: IG% - Immature Granu locytes (promyelocytes, myelocytes and metamyelocytes) > 1% indicates that a LEFT SHIFT is Present. MCH (RBC) [Entitic mass] 29.4 pg 27.0-32.0 [facility] Nucleated RBC/100 WBC (Bld) [Ratio] 0 % 0-5 [facility] MCHC Auto (RBC) [Mass/Vol]Or dered By: Lorraine Springer on 07-17-2023 MCHC (RBC) [Mass/Vol] 31.9 g/dL 32-36 [facility] Platelets bldOrdered By: Moon Springer on 07-17-2023 Platelets (Bld) [#/Vol] 190 10*3/uL 150-450 [facility] Absolute lymphocyte countOrd ered By: Lorraine Springer on 06-18-2023 Lymphocytes Auto (Unsp spec) [#/Vol] 1.70 10*3/uL 0.83-4.51 [facility] Basophil percentageOrdered B y: Lorraine Springer on 06-18-2023 Basophils/100 WBC (Bld) 0.4 % 0-1 [facility] Eosinophils/100 WBC (Bld) 0.4 % 0-5 [facility] Neutrophils (Bld) [#/Vol] 5.3 10*3/uL 2.0-7.7 [facility] Neutrophils/100 WBC (Bld) 71.4 % 47-70 [facility] WBC (Bld) [#/Vol] 7.4 10*3/uL 4.4-11.0 [facility] Blood erythrocytes count (nu mber/volume)Ordered By: Lorraine Springer on 06-18-2023 RBC (Bld) [#/Vol] 4.66 10*6/uL 4.2-5.4 [facility] Blood hemoglobin measurement (mass/volume)Ordered By: Lorraine Springer on 06-18-2023 Hemoglobin (Bld) [Mass/Vol] 13.9 g/dL 12.0-15.0 [facility] Blood lymphocytes/100 leukoc ytesOrdered By: Lorraine Springer on 06-18-2023 Lymphocytes/100 WBC (Bld) 23.1 % 19-41 [facility] Blood monocytes/100 leukocyt esOrdered By: Lorraine Springer on 06-18-2023 Monocytes/100 WBC (Bld) 4.4 % 0-10 [facility] Blood platelet mean volumeOr dered By: Lorraine Springer on 06-18-2023 Platelet mean volume (Bld) [Entitic vol] 11.9 fL 6.2-12.0 [facility] Determination of erythrocyte mean corpuscular volume (MCV)Ordered By: Lorraine Springer on 06-18-2023 MCV (RBC) [Entitic vol] 92.5 fL 81-99 [facility] Hematocrit Auto (Bld) [Volum e fraction]Ordered By: Lorraine Springer on 06-18-2023 Hematocrit (Bld) [Volume fraction] 43.1 % 37-47 [facility] Laboratory - Hematology and Cell countsOrdered By: Lorraine Springer on 06-18-2023 Erythrocyte distribution width (RBC) [Entitic vol] 46.5 fL 35.1-43.9 [facility] Erythrocyte distribution width (RBC) [Ratio] 13.6 % 11.6-14.6 [facility] Immature granulocytes/100 WBC (Bld) 0.300 % 0.0-0.9 [facility] Comment on above: IG% - Immature Granu locytes (promyelocytes, myelocytes and metamyelocytes) > 1% indicates that a LEFT SHIFT is Present. MCH (RBC) [Entitic mass] 29.8 pg 27.0-32.0 [facility] Nucleated RBC/100 WBC (Bld) [Ratio] 0 % 0-5 [facility] MCHC Auto (RBC) [Mass/Vol]Or dered By: Lorraine Springer on 06-18-2023 MCHC (RBC) [Mass/Vol] 32.3 g/dL 32-36 [facility] Platelets bldOrdered By: Moon Springer on 06-18-2023 Platelets (Bld) [#/Vol] 149 10*3/uL 150-450 [facility] NM CARDIAC PERF STRESS/PHARM on 05-26-[address] [facility] Absolute lymphocyte countOrd ered By: Lorraine Springer on 05-20-2023 Lymphocytes Auto (Unsp spec) [#/Vol] 2.71 10*3/uL 0.83-4.51 [facility] Basophil percentageOrdered B y: Lorraine Springer on 05-20-2023 Basophils/100 WBC (Bld) 0.4 % 0-1 [facility] Eosinophils/100 WBC (Bld) 0.3 % 0-5 [facility] Neutrophils (Bld) [#/Vol] 5.6 10*3/uL 2.0-7.7 [facility] Neutrophils/100 WBC (Bld) 60.5 % 47-70 [facility] WBC (Bld) [#/Vol] 9.2 10*3/uL 4.4-11.0 [facility] Blood erythrocytes count (nu mber/volume)Ordered By: Lorraine Springer on 05-20-2023 RBC (Bld) [#/Vol] 4.79 10*6/uL 4.2-5.4 [facility] Blood hemoglobin measurement (mass/volume)Ordered By: Lorraine Springer on 05-20-2023 Hemoglobin (Bld) [Mass/Vol] 13.9 g/dL 12.0-15.0 [facility] Blood lymphocytes/100 leukoc ytesOrdered By: Lorraine Springer on 05-20-2023 Lymphocytes/100 WBC (Bld) 29.4 % 19-41 [facility] Blood manual differential co mment interpretation (narrative result)Ordered By: Lorraine Springer on 05-20-2023 Manual differential comment [place] (Bld) [Interp] SCANNED [facility] Blood monocytes/100 leukocyt esOrdered By: [facility] Monocytes/100 WBC (Bld) 9.0 % 0-10 [facility] Blood platelet mean volumeOr dered By: Lorraine Springer on 05-20-2023 Platelet mean volume (Bld) [Entitic vol] 9.9 fL 6.2-12.0 [facility] Determination of erythrocyte mean corpuscular volume (MCV)Ordered By: Lorraine Springer on 05-20-2023 MCV (RBC) [Entitic vol] 92.9 fL 81-99 [facility] Hematocrit Auto (Bld) [Volum e fraction]Ordered By: Lorraine Springer on 05-20-2023 Hematocrit (Bld) [Volume fraction] 44.5 % 37-47 [facility] Laboratory - Hematology and Cell countsOrdered By: [facility] on 05-[facility]23 Erythrocyte distribution width (RBC) [Entitic vol] 46.7 fL 35.1-43.9 [facility] Erythrocyte distribution width (RBC) [Ratio] 13.7 % 11.6-14.6 [facility] Immature granulocytes/100 WBC (Bld) 0.400 % 0.0-0.9 [facility] Comment on above: IG% - Immature Granu locytes (promyelocytes, myelocytes and metamyelocytes) > 1% indicates that a LEFT SHIFT is Present. MCH (RBC) [Entitic mass] 29.0 pg 27.0-32.0 [facility] Nucleated RBC/100 WBC (Bld) [Ratio] 0 % 0-5 [facility] MCHC Auto (RBC) [Mass/Vol]Or dered By: Lorraine Springer on 05-20-2023 MCHC (RBC) [Mass/Vol] 31.2 g/dL 32-36 [facility] Platelets bldOrdered By: Moon Springer on 05-20-2023 Platelets (Bld) [#/Vol] 207 10*3/uL 150-450 [facility] Absolute lymphocyte countOrd ered By: Lorraine Springer on 05-05-2023 Lymphocytes Auto (Unsp spec) [#/Vol] 2.52 10*3/uL 0.83-4.51 [facility] Basophil percentageOrdered B y: Lorraine Springer on 05-05-2023 Basophils/100 WBC (Bld) 0.6 % 0-1 [facility] Eosinophils/100 WBC (Bld) 0.2 % 0-5 [facility] Neutrophils (Bld) [#/Vol] 5.3 10*3/uL 2.0-7.7 [facility] Neutrophils/100 WBC (Bld) 61.7 % 47-70 [facility] WBC (Bld) [#/Vol] 8.6 10*3/uL 4.4-11.0 [facility] Blood erythrocytes count (nu mber/volume)Ordered By: Lorraine Springer on 05-05-2023 RBC (Bld) [#/Vol] 5.01 10*6/uL 4.2-5.4 [facility] Blood hemoglobin measurement (mass/volume)Ordered By: Lorraine Springer on 05-05-2023 Hemoglobin (Bld) [Mass/Vol] 14.8 g/dL 12.0-15.0 [facility] Blood lymphocytes/100 leukoc ytesOrdered By: Lorraine Springer on 05-05-2023 Lymphocytes/100 WBC (Bld) 29.3 % 19-41 [facility] Blood monocytes/100 leukocyt esOrdered By: Lorraine Springer on 05-05-2023 Monocytes/100 WBC (Bld) 7.9 % 0-10 [facility] Blood platelet adequacy dete ction by light microscopyOrdered By: Lorraine Springer on 05-05-2023 Platelets LM Ql (Bld) ADEQUATE ADEQ [facility] Blood platelet mean volumeOr dered By: Lorraine Springer on 05-05-2023 Platelet mean volume (Bld) [Entitic vol] 10.6 fL 6.2-12.0 [facility] Determination of erythrocyte mean corpuscular volume (MCV)Ordered By: Lorraine Springer on 05-05-2023 MCV (RBC) [Entitic vol] 91.8 fL 81-99 [facility] Hematocrit Auto (Bld) [Volum e fraction]Ordered By: Lorraine Springer on 05-05-2023 Hematocrit (Bld) [Volume fraction] 46.0 % 37-47 [facility] Laboratory - Hematology and Cell countsOrdered By: Lorraine Springer on 05-05-2023 Anisocytosis Ql (Bld) RARE [facility] Erythrocyte distribution width (RBC) [Entitic vol] 45.9 fL 35.1-43.9 [facility] Erythrocyte distribution width (RBC) [Ratio] 13.7 % 11.6-14.6 [facility] Immature granulocytes/100 WBC (Bld) 0.300 % 0.0-0.9 [facility] Comment on above: IG% - Immature Granu locytes (promyelocytes, myelocytes and metamyelocytes) > 1% indicates that a LEFT SHIFT is Present. MCH (RBC) [Entitic mass] 29.5 pg 27.0-32.0 [facility] Nucleated RBC/100 WBC (Bld) [Ratio] 0 % 0-5 [facility] MCHC Auto (RBC) [Mass/Vol]Or dered By: Lorraine Springer on 05-05-2023 MCHC (RBC) [Mass/Vol] 32.2 g/dL 32-36 [facility] No Panel InformationOrdered By: Lorraine Springer on 05-05-2023 Atypical Lymphocytes 1+ % [facility] Platelets bldOrdered By: Moon Springer on 05-05-2023 Platelets (Bld) [#/Vol] 222 10*3/uL 150-450 [facility] RBC morphologyOrdered By: Anastacia Springer on 05-05-2023 RBC morphology finding Nom (Bld) N CHROM NORMAL NORM C&C [facility] Absolute lymphocyte countOrd ered By: Lorraine Springer on 03-17-2023 Lymphocytes Auto (Unsp spec) [#/Vol] 2.43 10*3/uL 0.83-4.51 [facility] Basophil percentageOrdered B y: Lorraine Springer on 03-17-2023 Basophils/100 WBC (Bld) 0.4 % 0-1 [facility] Eosinophils/100 WBC (Bld) 0.2 % 0-5 [facility] Neutrophils (Bld) [#/Vol] 7.8 10*3/uL 2.0-7.7 [facility] Neutrophils/100 WBC (Bld) 71.4 % 47-70 [facility] WBC (Bld) [#/Vol] 10.8 10*3/uL 4.4-11.0 [facility] Blood erythrocytes count (nu mber/volume)Ordered By: Lorraine Springer on 03-17-2023 RBC (Bld) [#/Vol] 4.78 10*6/uL 4.2-5.4 [facility] Blood hemoglobin measurement (mass/volume)Ordered By: Lorraine Springer on 03-17-2023 Hemoglobin (Bld) [Mass/Vol] 14.2 g/dL 12.0-15.0 [facility] Blood lymphocytes/100 leukoc ytesOrdered By: Lorraine Springer on 03-17-2023 Lymphocytes/100 WBC (Bld) 22.4 % 19-41 [facility] Blood monocytes/100 leukocyt esOrdered By: Lorraine Springer on 03-17-2023 Monocytes/100 WBC (Bld) 5.3 % 0-10 [facility] Blood platelet mean volumeOr dered By: Lorraine Springer on 03-17-2023 Platelet mean volume (Bld) [Entitic vol] 9.5 fL 6.2-12.0 [facility] Determination of erythrocyte mean corpuscular volume (MCV)Ordered By: Lorraine Springer on 03-17-2023 MCV (RBC) [Entitic vol] 90.2 fL 81-99 [facility] Hematocrit Auto (Bld) [Volum e fraction]Ordered By: Lorraine Springer on 03-17-2023 Hematocrit (Bld) [Volume fraction] 43.1 % 37-47 [facility] Laboratory - Hematology and Cell countsOrdered By: Lorraine Springer on 03-17-2023 Erythrocyte distribution width (RBC) [Entitic vol] 44.8 fL 35.1-43.9 [facility] Erythrocyte distribution width (RBC) [Ratio] 13.6 % 11.6-14.6 [facility] Immature granulocytes/100 WBC (Bld) 0.300 % 0.0-0.9 [facility] Comment on above: IG% - Immature Granu locytes (promyelocytes, myelocytes and metamyelocytes) > 1% indicates that a LEFT SHIFT is Present. MCH (RBC) [Entitic mass] 29.7 pg 27.0-32.0 [facility] Nucleated RBC/100 WBC (Bld) [Ratio] 0 % 0-5 [facility] MCHC Auto (RBC) [Mass/Vol]Or dered By: Lorraine Springer on 03-17-2023 MCHC (RBC) [Mass/Vol] 32.9 g/dL 32-36 [facility] Platelets bldOrdered By: Moon Springer on 03-17-2023 Platelets (Bld) [#/Vol] 201 10*3/uL 150-450 [facility] Absolute lymphocyte countOrd ered By: Dr. Springer on 02-17-2023 Lymphocytes Auto (Unsp spec) [#/Vol] 2.63 10*3/uL 0.83-4.51 [facility] Basophil percentageOrdered B y: Dr. Springer on 02-17-2023 Basophils/100 WBC (Bld) 0.5 % 0-1 [facility] Eosinophils/100 WBC (Bld) 0.4 % 0-5 [facility] Neutrophils (Bld) [#/Vol] 6.5 10*3/uL 2.0-7.7 [facility] Neutrophils/100 WBC (Bld) 65.4 % 47-70 [facility] WBC (Bld) [#/Vol] 10.0 10*3/uL 4.4-11.0 [facility] Blood erythrocytes count (nu mber/volume)Ordered By: Dr. Springer on 02-17-2023 RBC (Bld) [#/Vol] 5.05 10*6/uL 4.2-5.4 [facility] Blood hemoglobin measurement (mass/volume)Ordered By: Dr. Springer on 02-17-2023 Hemoglobin (Bld) [Mass/Vol] 14.8 g/dL 12.0-15.0 [facility] Blood lymphocytes/100 leukoc ytesOrdered By: Dr. Springer on 02-17-2023 Lymphocytes/100 WBC (Bld) 26.4 % 19-41 [facility] Blood monocytes/100 leukocyt esOrdered By: Dr. Springer on 02-17-2023 Monocytes/100 WBC (Bld) 7.0 % 0-10 [facility] Blood platelet mean volumeOr dered By: Dr. Springer on 02-17-2023 Platelet mean volume (Bld) [Entitic vol] 10.8 fL 6.2-12.0 [facility] Determination of erythrocyte mean corpuscular volume (MCV)Ordered By: Dr. Springer on 02-17-2023 MCV (RBC) [Entitic vol] 90.7 fL 81-99 [facility] Hematocrit Auto (Bld) [Volum e fraction]Ordered By: Dr. Springer on 02-17-2023 Hematocrit (Bld) [Volume fraction] 45.8 % 37-47 [facility] Laboratory - Hematology and Cell countsOrdered By: Dr. Springer on 02-17-2023 Erythrocyte distribution width (RBC) [Entitic vol] 45.1 fL 35.1-43.9 [facility] Erythrocyte distribution width (RBC) [Ratio] 13.6 % 11.6-14.6 [facility] Immature granulocytes/100 WBC (Bld) 0.300 % 0.0-0.9 [facility] Comment on above: IG% - Immature Granu locytes (promyelocytes, myelocytes and metamyelocytes) > 1% indicates that a LEFT SHIFT is Present. MCH (RBC) [Entitic mass] 29.3 pg 27.0-32.0 [facility] Nucleated RBC/100 WBC (Bld) [Ratio] 0 % 0-5 [facility] MCHC Auto (RBC) [Mass/Vol]Or dered By: Dr. Springer on 02-17-2023 MCHC (RBC) [Mass/Vol] 32.3 g/dL 32-36 [facility] Platelets bldOrdered By: Dr. Springer on 02-17-2023 Platelets (Bld) [#/Vol] 192 10*3/uL 150-450 [facility] Absolute lymphocyte countOrd ered By: Dr. Springer on 01-15-2023 Lymphocytes Auto (Unsp spec) [#/Vol] 1.99 10*3/uL 0.83-4.51 [facility] Basophil percentageOrdered B y: Dr. Springer on 01-15-2023 Basophils/100 WBC (Bld) 0.7 % 0-1 [facility] Eosinophils/100 WBC (Bld) 0.4 % 0-5 [facility] Neutrophils (Bld) [#/Vol] 4.6 10*3/uL 2.0-7.7 [facility] Neutrophils/100 WBC (Bld) 64.5 % 47-70 [facility] WBC (Bld) [#/Vol] 7.2 10*3/uL 4.4-11.0 [facility] Blood erythrocytes count (nu mber/volume)Ordered By: Dr. Springer on 01-15-2023 RBC (Bld) [#/Vol] 5.12 10*6/uL 4.2-5.4 [facility] Blood hemoglobin measurement (mass/volume)Ordered By: Dr. Springer on 01-15-2023 Hemoglobin (Bld) [Mass/Vol] 14.9 g/dL 12.0-15.0 [facility] Blood lymphocytes/100 leukoc ytesOrdered By: Dr. Springer on 01-15-2023 Lymphocytes/100 WBC (Bld) 27.7 % 19-41 [facility] Blood monocytes/100 leukocyt esOrdered By: Dr. Springer on 01-15-2023 Monocytes/100 WBC (Bld) 6.4 % 0-10 [facility] Blood platelet mean volumeOr dered By: Dr. Springer on 01-15-2023 Platelet mean volume (Bld) [Entitic vol] 12.3 fL 6.2-12.0 [facility] Determination of erythrocyte mean corpuscular volume (MCV)Ordered By: Dr. Springer on 01-15-2023 MCV (RBC) [Entitic vol] 91.6 fL 81-99 [facility] Hematocrit Auto (Bld) [Volum e fraction]Ordered By: Dr. Springer on 01-15-2023 Hematocrit (Bld) [Volume fraction] 46.9 % 37-47 [facility] Laboratory - Hematology and Cell countsOrdered By: Dr. Springer on 01-15-2023 Erythrocyte distribution width (RBC) [Entitic vol] 46.8 fL 35.1-43.9 [facility] Erythrocyte distribution width (RBC) [Ratio] 13.9 % 11.6-14.6 [facility] Immature granulocytes/100 WBC (Bld) 0.300 % 0.0-0.9 [facility] Comment on above: IG% - Immature Granu locytes (promyelocytes, myelocytes and metamyelocytes) > 1% indicates that a LEFT SHIFT is Present. MCH (RBC) [Entitic mass] 29.1 pg 27.0-32.0 [facility] Nucleated RBC/100 WBC (Bld) [Ratio] 0 % 0-5 [facility] MCHC Auto (RBC) [Mass/Vol]Or dered By: Dr. Springer on 01-15-2023 MCHC (RBC) [Mass/Vol] 31.8 g/dL 32-36 [facility] Platelets bldOrdered By: Dr. Springer on 01-15-2023 Platelets (Bld) [#/Vol] 168 10*3/uL 150-450 [facility] Absolute lymphocyte countOrd ered By: Dr. Springer on 12-16-2022 Lymphocytes Auto (Unsp spec) [#/Vol] 2.57 10*3/uL 0.83-4.51 [facility] Basophil percentageOrdered B y: Dr. Springer on 12-16-2022 Basophils/100 WBC (Bld) 0.5 % 0-1 [facility] Eosinophils/100 WBC (Bld) 0.3 % 0-5 [facility] Neutrophils (Bld) [#/Vol] 4.5 10*3/uL 2.0-7.7 [facility] Neutrophils/100 WBC (Bld) 57.5 % 47-70 [facility] WBC (Bld) [#/Vol] 7.8 10*3/uL 4.4-11.0 [facility] Blood erythrocytes count (nu mber/volume)Ordered By: Dr. Springer on 12-16-2022 RBC (Bld) [#/Vol] 4.75 10*6/uL 4.2-5.4 [facility] Blood hemoglobin measurement (mass/volume)Ordered By: Dr. Springer on 12-16-2022 Hemoglobin (Bld) [Mass/Vol] 13.9 g/dL 12.0-15.0 [facility] Blood lymphocytes/100 leukoc ytesOrdered By: Dr. Springer on 12-16-2022 Lymphocytes/100 WBC (Bld) 33.2 % 19-41 [facility] Blood monocytes/100 leukocyt esOrdered By: Dr. Springer on 12-16-2022 Monocytes/100 WBC (Bld) 8.1 % 0-10 [facility] Blood platelet mean volumeOr dered By: Dr. Springer on 12-16-2022 Platelet mean volume (Bld) [Entitic vol] 11.0 fL 6.2-12.0 [facility] Determination of erythrocyte mean corpuscular volume (MCV)Ordered By: Dr. Springer on 12-16-2022 MCV (RBC) [Entitic vol] 92.8 fL 81-99 [facility] Hematocrit Auto (Bld) [Volum e fraction]Ordered By: Dr. Springer on 12-16-2022 Hematocrit (Bld) [Volume fraction] 44.1 % 37-47 [facility] Laboratory - Hematology and Cell countsOrdered By: Dr. Springer on 12-16-2022 Erythrocyte distribution width (RBC) [Entitic vol] 47.1 fL 35.1-43.9 [facility] Erythrocyte distribution width (RBC) [Ratio] 13.9 % 11.6-14.6 [facility] Immature granulocytes/100 WBC (Bld) 0.400 % 0.0-0.9 [facility] Comment on above: IG% - Immature Granu locytes (promyelocytes, myelocytes and metamyelocytes) > 1% indicates that a LEFT SHIFT is Present. MCH (RBC) [Entitic mass] 29.3 pg 27.0-32.0 [facility] Nucleated RBC/100 WBC (Bld) [Ratio] 0 % 0-5 [facility] MCHC Auto (RBC) [Mass/Vol]Or dered By: Dr. Springer on 12-16-2022 MCHC (RBC) [Mass/Vol] 31.5 g/dL 32-36 [facility] Platelets bldOrdered By: Dr. Springer on 12-16-2022 Platelets (Bld) [#/Vol] 193 10*3/uL 150-450 [facility] Absolute lymphocyte countOrd ered By: Dr. Springer on 11-19-2022 Lymphocytes Auto (Unsp spec) [#/Vol] 2.45 10*3/uL 0.83-4.51 [facility] Basophil percentageOrdered B y: Dr. Springer on 11-19-2022 Basophils/100 WBC (Bld) 0.6 % 0-1 [facility] Eosinophils/100 WBC (Bld) 0.2 % 0-5 [facility] Neutrophils (Bld) [#/Vol] 5.0 10*3/uL 2.0-7.7 [facility] Neutrophils/100 WBC (Bld) 61.5 % 47-70 [facility] WBC (Bld) [#/Vol] 8.2 10*3/uL 4.4-11.0 [facility] Blood erythrocytes count (nu mber/volume)Ordered By: Dr. Springer on 11-19-2022 RBC (Bld) [#/Vol] 4.95 10*6/uL 4.2-5.4 [facility] Blood hemoglobin measurement (mass/volume)Ordered By: Dr. Springer on 11-19-2022 Hemoglobin (Bld) [Mass/Vol] 14.4 g/dL 12.0-15.0 [facility] Blood lymphocytes/100 leukoc ytesOrdered By: Dr. Springer on 11-19-2022 Lymphocytes/100 WBC (Bld) 30.1 % 19-41 [facility] Blood monocytes/100 leukocyt esOrdered By: Dr. Springer on 11-19-2022 Monocytes/100 WBC (Bld) 7.4 % 0-10 [facility] Blood platelet mean volumeOr dered By: Dr. Springer on 11-19-2022 Platelet mean volume (Bld) [Entitic vol] 9.8 fL 6.2-12.0 [facility] Determination of erythrocyte mean corpuscular volume (MCV)Ordered By: Dr. Springer on 11-19-2022 MCV (RBC) [Entitic vol] 91.9 fL 81-99 [facility] Hematocrit Auto (Bld) [Volum e fraction]Ordered By: Dr. Springer on 11-19-2022 Hematocrit (Bld) [Volume fraction] 45.5 % 37-47 [facility] Laboratory - Hematology and Cell countsOrdered By: Dr. Springer on 11-19-2022 Erythrocyte distribution width (RBC) [Entitic vol] 45.9 fL 35.1-43.9 [facility] Erythrocyte distribution width (RBC) [Ratio] 13.7 % 11.6-14.6 [facility] Immature granulocytes/100 WBC (Bld) 0.200 % 0.0-0.9 [facility] Comment on above: IG% - Immature Granu locytes (promyelocytes, myelocytes and metamyelocytes) > 1% indicates that a LEFT SHIFT is Present. MCH (RBC) [Entitic mass] 29.1 pg 27.0-32.0 [facility] Nucleated RBC/100 WBC (Bld) [Ratio] 0 % 0-5 [facility] MCHC Auto (RBC) [Mass/Vol]Or dered By: Dr. Springer on 11-19-2022 MCHC (RBC) [Mass/Vol] 31.6 g/dL 32-36 [facility] Platelets bldOrdered By: Dr. Springer on 11-19-2022 Platelets (Bld) [#/Vol] 198 10*3/uL 150-450 [facility] Absolute lymphocyte countOrd ered By: Dr. Springer on 10-17-2022 Lymphocytes Auto (Unsp spec) [#/Vol] 2.70 10*3/uL 0.83-4.51 [facility] Basophil percentageOrdered B y: Dr. Springer on 10-17-2022 Basophils/100 WBC (Bld) 0.7 % 0-1 [facility] Eosinophils/100 WBC (Bld) 0.2 % 0-5 [facility] Neutrophils (Bld) [#/Vol] 5.4 10*3/uL 2.0-7.7 [facility] Neutrophils/100 WBC (Bld) 60.7 % 47-70 [facility] WBC (Bld) [#/Vol] 8.8 10*3/uL 4.4-11.0 [facility] Blood erythrocytes count (nu mber/volume)Ordered By: Dr. Springer on 10-17-2022 RBC (Bld) [#/Vol] 5.13 10*6/uL 4.2-5.4 [facility] Blood hemoglobin measurement (mass/volume)Ordered By: Dr. Springer on 10-17-2022 Hemoglobin (Bld) [Mass/Vol] 14.9 g/dL 12.0-15.0 [facility] Blood lymphocytes/100 leukoc ytesOrdered By: Dr. Springer on 10-17-2022 Lymphocytes/100 WBC (Bld) 30.6 % 19-41 [facility] Blood monocytes/100 leukocyt esOrdered By: Dr. Springer on 10-17-2022 Monocytes/100 WBC (Bld) 7.5 % 0-10 [facility] Blood platelet mean volumeOr dered By: Dr. Springer on 10-17-2022 Platelet mean volume (Bld) [Entitic vol] 11.2 fL 6.2-12.0 [facility] Determination of erythrocyte mean corpuscular volume (MCV)Ordered By: Dr. Springer on 10-17-2022 MCV (RBC) [Entitic vol] 90.3 fL 81-99 [facility] Hematocrit Auto (Bld) [Volum e fraction]Ordered By: Dr. Springer on 10-17-2022 Hematocrit (Bld) [Volume fraction] 46.3 % 37-47 [facility] Laboratory - Hematology and Cell countsOrdered By: Dr. Springer on 10-17-2022 Erythrocyte distribution width (RBC) [Entitic vol] 43.7 fL 35.1-43.9 [facility] Erythrocyte distribution width (RBC) [Ratio] 13.3 % 11.6-14.6 [facility] Immature granulocytes/100 WBC (Bld) 0.300 % 0.0-0.9 [facility] Comment on above: IG% - Immature Granu locytes (promyelocytes, myelocytes and metamyelocytes) > 1% indicates that a LEFT SHIFT is Present. MCH (RBC) [Entitic mass] 29.0 pg 27.0-32.0 [facility] Nucleated RBC/100 WBC (Bld) [Ratio] 0 % 0-5 [facility] MCHC Auto (RBC) [Mass/Vol]Or dered By: Dr. Springer on 10-17-2022 MCHC (RBC) [Mass/Vol] 32.2 g/dL 32-36 [facility] Platelets bldOrdered By: Dr. Springer on 10-17-2022 Platelets (Bld) [#/Vol] 199 10*3/uL 150-450 [facility] Absolute lymphocyte countOrd ered By: Dr. Springer on 09-19-2022 Lymphocytes Auto (Unsp spec) [#/Vol] 2.26 10*3/uL 0.83-4.51 [facility] Basophil percentageOrdered B y: Dr. Springer on 09-19-2022 Basophils/100 WBC (Bld) 0.6 % 0-1 [facility] Eosinophils/100 WBC (Bld) 0.3 % 0-5 [facility] Neutrophils (Bld) [#/Vol] 3.7 10*3/uL 2.0-7.7 [facility] Neutrophils/100 WBC (Bld) 55.2 % 47-70 [facility] WBC (Bld) [#/Vol] 6.7 10*3/uL 4.4-11.0 [facility] Blood erythrocytes count (nu mber/volume)Ordered By: Dr. Springer on 09-19-2022 RBC (Bld) [#/Vol] 4.98 10*6/uL 4.2-5.4 [facility] Blood hemoglobin measurement (mass/volume)Ordered By: Dr. Springer on 09-19-2022 Hemoglobin (Bld) [Mass/Vol] 14.4 g/dL 12.0-15.0 [facility] Blood lymphocytes/100 leukoc ytesOrdered By: Dr. Springer on 09-19-2022 Lymphocytes/100 WBC (Bld) 33.9 % 19-41 [facility] Blood manual differential co mment interpretation (narrative result)Ordered By: Dr. Springer on 09-19-2022 Manual differential comment [place] (Bld) [Interp] SCANNED [facility] Blood monocytes/100 leukocyt esOrdered By: Dr. Springer on 09-19-2022 Monocytes/100 WBC (Bld) 9.7 % 0-10 [facility] Blood platelet mean volumeOr dered By: Dr. Springer on 09-19-2022 Platelet mean volume (Bld) [Entitic vol] 10.2 fL 6.2-12.0 [facility] Determination of erythrocyte mean corpuscular volume (MCV)Ordered By: Dr. Springer on 09-19-2022 MCV (RBC) [Entitic vol] 91.8 fL 81-99 [facility] Hematocrit Auto (Bld) [Volum e fraction]Ordered By: Dr. Springer on 09-19-2022 Hematocrit (Bld) [Volume fraction] 45.7 % 37-47 [facility] Laboratory - Hematology and Cell countsOrdered By: Dr. Springer on 09-19-2022 Erythrocyte distribution width (RBC) [Entitic vol] 44.5 fL 35.1-43.9 [facility] Erythrocyte distribution width (RBC) [Ratio] 13.2 % 11.6-14.6 [facility] Immature granulocytes/100 WBC (Bld) 0.300 % 0.0-0.9 [facility] Comment on above: IG% - Immature Granu locytes (promyelocytes, myelocytes and metamyelocytes) > 1% indicates that a LEFT SHIFT is Present. MCH (RBC) [Entitic mass] 28.9 pg 27.0-32.0 [facility] Nucleated RBC/100 WBC (Bld) [Ratio] 0 % 0-5 [facility] MCHC Auto (RBC) [Mass/Vol]Or dered By: Dr. Springer on 09-19-2022 MCHC (RBC) [Mass/Vol] 31.5 g/dL 32-36 [facility] No Panel InformationOrdered By: Dr. Springer on 09-19-2022 Atypical Lymphocytes 1+ % [facility] Platelets bldOrdered By: Dr. Springer on 09-19-2022 Platelets (Bld) [#/Vol] 198 10*3/uL 150-450 [facility] Absolute lymphocyte countOrd ered By: Dr. Springer on 08-15-2022 Lymphocytes Auto (Unsp spec) [#/Vol] 2.32 10*3/uL 0.83-4.51 [facility] Basophil percentageOrdered B y: Dr. Springer on 08-15-2022 Basophils/100 WBC (Bld) 0.6 % 0-1 [facility] Eosinophils/100 WBC (Bld) 0.3 % 0-5 [facility] Neutrophils (Bld) [#/Vol] 3.8 10*3/uL 2.0-7.7 [facility] Neutrophils/100 WBC (Bld) 57.5 % 47-70 [facility] WBC (Bld) [#/Vol] 6.7 10*3/uL 4.4-11.0 [facility] Blood erythrocytes count (nu mber/volume)Ordered By: Dr. Springer on 08-15-2022 RBC (Bld) [#/Vol] 4.65 10*6/uL 4.2-5.4 [facility] Blood hemoglobin measurement (mass/volume)Ordered By: Dr. Springer on 08-15-2022 Hemoglobin (Bld) [Mass/Vol] 14.2 g/dL 12.0-15.0 [facility] Blood lymphocytes/100 leukoc ytesOrdered By: Dr. Springer on 08-15-2022 Lymphocytes/100 WBC (Bld) 34.9 % 19-41 [facility] Blood monocytes/100 leukocyt esOrdered By: Dr. Springer on 08-15-2022 Monocytes/100 WBC (Bld) 6.5 % 0-10 [facility] Blood platelet mean volumeOr dered By: Dr. Sprigner on 08-15-2022 Platelet mean volume (Bld) [Entitic vol] 10.1 fL 6.2-12.0 [facility] Blood platelet morphology de termination (nominal result)Ordered By: Dr. Springer on 08-15-2022 Platelet morphology finding Nom (Bld) LARGE [facility] Determination of erythrocyte mean corpuscular volume (MCV)Ordered By: Dr. Springer on 08-15-2022 MCV (RBC) [Entitic vol] 92.0 fL 81-99 [facility] Hematocrit Auto (Bld) [Volum e fraction]Ordered By: Dr. Springer on 08-15-2022 Hematocrit (Bld) [Volume fraction] 42.8 % 37-47 [facility] Laboratory - Hematology and Cell countsOrdered By: Dr. Springer on 08-15-2022 Erythrocyte distribution width (RBC) [Entitic vol] 45.7 fL 35.1-43.9 [facility] Erythrocyte distribution width (RBC) [Ratio] 13.6 % 11.6-14.6 [facility] Immature granulocytes/100 WBC (Bld) 0.200 % 0.0-0.9 [facility] Comment on above: IG% - Immature Granu locytes (promyelocytes, myelocytes and metamyelocytes) > 1% indicates that a LEFT SHIFT is Present. MCH (RBC) [Entitic mass] 30.5 pg 27.0-32.0 [facility] Nucleated RBC/100 WBC (Bld) [Ratio] 0 % 0-5 [facility] MCHC Auto (RBC) [Mass/Vol]Or dered By: Dr. Springer on 08-15-2022 MCHC (RBC) [Mass/Vol] 33.2 g/dL 32-36 [facility] No Panel InformationOrdered By: Dr. Springer on 08-15-2022 Reactive Lymphocytes RARE [facility] Platelets bldOrdered By: Dr. Springer on 08-15-2022 Platelets (Bld) [#/Vol] 185 10*3/uL 150-450 [facility] Absolute lymphocyte countOrd ered By: Dr. Springer on 07-23-2022 Lymphocytes Auto (Unsp spec) [#/Vol] 2.25 10*3/uL 0.83-4.51 [facility] Basophil percentageOrdered B y: Dr. Springer on 07-23-2022 Basophils/100 WBC (Bld) 0.5 % 0-1 [facility] Eosinophils/100 WBC (Bld) 0.1 % 0-5 [facility] Neutrophils (Bld) [#/Vol] 4.6 10*3/uL 2.0-7.7 [facility] Neutrophils/100 WBC (Bld) 62.0 % 47-70 [facility] WBC (Bld) [#/Vol] 7.4 10*3/uL 4.4-11.0 [facility] Blood erythrocytes count (nu mber/volume)Ordered By: Dr. Springer on 07-23-2022 RBC (Bld) [#/Vol] 4.63 10*6/uL 4.2-5.4 [facility] Blood hemoglobin measurement (mass/volume)Ordered By: Dr. Springer on 07-23-2022 Hemoglobin (Bld) [Mass/Vol] 13.8 g/dL 12.0-15.0 [facility] Blood lymphocytes/100 leukoc ytesOrdered By: Dr. Springer on 07-23-2022 Lymphocytes/100 WBC (Bld) 30.5 % 19-41 [facility] Blood monocytes/100 leukocyt esOrdered By: Dr. Springer on 07-23-2022 Monocytes/100 WBC (Bld) 6.6 % 0-10 [facility] Blood platelet adequacy dete ction by light microscopyOrdered By: Dr. Springer on 07-23-2022 Platelets LM Ql (Bld) ADEQUATE ADEQ [facility] Blood platelet mean volumeOr dered By: Dr. Springer on 07-23-2022 Platelet mean volume (Bld) [Entitic vol] 10.0 fL 6.2-12.0 [facility] Determination of erythrocyte mean corpuscular volume (MCV)Ordered By: Dr. Springer on 07-23-2022 MCV (RBC) [Entitic vol] 92.7 fL 81-99 [facility] Hematocrit Auto (Bld) [Volum e fraction]Ordered By: Dr. Springer on 07-23-2022 Hematocrit (Bld) [Volume fraction] 42.9 % 37-47 [facility] Laboratory - Hematology and Cell countsOrdered By: Dr. Springer on 07-23-2022 Erythrocyte distribution width (RBC) [Entitic vol] 47.2 fL 35.1-43.9 [facility] Erythrocyte distribution width (RBC) [Ratio] 13.9 % 11.6-14.6 [facility] Immature granulocytes/100 WBC (Bld) 0.300 % 0.0-0.9 [facility] Comment on above: IG% - Immature Granu locytes (promyelocytes, myelocytes and metamyelocytes) > 1% indicates that a LEFT SHIFT is Present. MCH (RBC) [Entitic mass] 29.8 pg 27.0-32.0 [facility] Nucleated RBC/100 WBC (Bld) [Ratio] 0 % 0-5 [facility] MCHC Auto (RBC) [Mass/Vol]Or dered By: Dr. Springer on 07-23-2022 MCHC (RBC) [Mass/Vol] 32.2 g/dL 32-36 [facility] Platelets bldOrdered By: Dr. Springer on 07-23-2022 Platelets (Bld) [#/Vol] 210 10*3/uL 150-450 [facility] RBC morphologyOrdered By: Dr Meghan Springer on 07-23-2022 RBC morphology finding Nom (Bld) NORM C+C NORMAL NORM C&C [facility] Absolute lymphocyte counton 06-19-2022 Lymphocytes Auto (Unsp spec) [#/Vol] 2.95 10*3/uL 0.83-4.51 [facility] Work Phone: Basophil percentageon 2021 Basophils/100 WBC (Bld) 0.3 % 0-1 [facility] Work Phone: Eosinophils/100 WBC (Bld) 0.2 % 0-5 [facility] Work Phone: [phone] Neutrophils (Bld) [#/Vol] 5.4 10*3/uL 2.0-7.7 [facility] Work Phone: [phone] Neutrophils/100 WBC (Bld) 59.6 % 47-70 [facility] Work Phone: WBC (Bld) [#/Vol] 9.1 10*3/uL 4.4-11.0 [facility] Work Phone: Blood erythrocytes count (nu mber/volume)on 06-19-2022 RBC (Bld) [#/Vol] 4.69 10*6/uL 4.2-5.4 [facility] Work [facility]: [phone] Blood hemoglobin measurement (mass/volume)on 06-19-2022 Hemoglobin (Bld) [Mass/Vol] 13.8 g/dL 12.0-15.0 [facility] Work Phone: [phone] Blood lymphocytes/100 leukoc yteson 06-19-2022 Lymphocytes/100 WBC (Bld) 32.5 % 19-41 [facility] Work Phone: Blood monocytes/100 leukocyt eson 06-19-2022 Monocytes/100 WBC (Bld) 7.1 % 0-10 [facility] Work Phone: Blood platelet adequacy dete ction by light microscopyon 06-19-2022 Platelets LM Ql (Bld) [facility]ATE ADEQ [facility] Work Phone: Blood platelet mean volumeon 06-19-2022 Platelet mean volume (Bld) [Entitic vol] 10.0 fL 6.2-12.0 [facility] Work Phone: Determination of erythrocyte mean corpuscular volume (MCV)on 06-19-2022 MCV (RBC) [Entitic vol] 90.0 fL 81-99 [facility] Work Phone: Hematocrit Auto (Bld) [Volum e fraction]on 06-19-2022 Hematocrit (Bld) [Volume fraction] 42.2 % 37-47 [facility] Work Phone: Laboratory - Hematology and Cell countson 06-19-2022 Erythrocyte distribution width (RBC) [Entitic vol] 45.1 fL 35.1-43.9 [facility] Work Phone: Erythrocyte distribution width (RBC) [Ratio] 13.8 % 11.6-14.6 [facility] Work Phone: Immature granulocytes/100 WBC (Bld) 0.300 % 0.0-0.9 [facility] Work Phone: Comment on above: IG% - Immature Granu locytes (promyelocytes, myelocytes and metamyelocytes) > 1% indicates that a LEFT SHIFT is Present. MCH (RBC) [Entitic mass] 29.4 pg 27.0-32.0 [facility] Work Phone: Nucleated RBC/100 WBC (Bld) [Ratio] 0 % 0-5 [facility] Work Phone: MCHC Auto (RBC) [Mass/Vol]on 06-19-2022 MCHC (RBC) [Mass/Vol] 32.7 g/dL 32-36 [facility] Work Phone: No Panel Informationon 06-19 Atypical Lymphocytes 1+ % [facility] Work Phone: Platelets bldon 06-19-2022 Platelets (Bld) [#/Vol] 209 10*3/uL 150-450 [facility] Work Phone: RBC morphologyon 06-19-2022 RBC morphology finding Nom (Bld) NORM C+C NORMAL NORM C&C [facility] Work Phone: Absolute lymphocyte counton 06-05-2022 Lymphocytes Auto (Unsp spec) [#/Vol] 2.74 10*3/uL 0.83-4.51 [facility] Work Phone: Basophil percentageon 2021 Basophils/100 WBC (Bld) 0.5 % 0-1 [facility] Work Phone: Bilirubin [Mass/Vol] 0.20 mg/dL 0.20-1.00 [facility] Work Phone: Comment on above: For patients on eltr ombopag therapy, use of Dimension [place] TBIL is not recommended. Chloride [Moles/Vol] 106 mmol/L 98-107 [facility] Work Phone: Eosinophils/100 WBC (Bld) 0.1 % 0-5 [facility] Work Phone: Glucose [Mass/Vol] 206 mg/dL 74-106 [facility] Work Phone: Comment on above: Glucose result great er than or equal to 200 mg/dLsuggests DIABETES MELLITUS per A.D.A. criteria. Neutrophils (Bld) [#/Vol] 5.4 10*3/uL 2.0-7.7 [facility] Work Phone: [phone] Neutrophils/100 WBC (Bld) 61.0 % 47-70 [facility] Work Phone: Potassium [Moles/Vol] 4.3 mmol/L 3.5-5.1 [facility] Work Phone: [phone] Protein [Mass/Vol] 7.6 g/dL 6.4-8.2 [facility] Work Phone: Sodium [Moles/Vol] 139 mmol/L 136-145 [facility] Work Phone: WBC (Bld) [#/Vol] 8.9 10*3/uL 4.4-11.0 [facility] Work Phone: Basophil percentage 0 SEEN /hpf 0-5 [facility] Work Phone: Bilirubin Test strip Ql (U)o n 06-05-2022 Bilirubin Ql (U) Negative Negative [facility] Work Phone: Blood erythrocytes count (nu mber/volume)on 06-05-2022 RBC (Bld) [#/Vol] 4.70 10*6/uL 4.2-5.4 [facility] Work Phone: Blood hemoglobin measurement (mass/volume)on 06-05-2022 Hemoglobin (Bld) [Mass/Vol] 14.1 g/dL 12.0-15.0 [facility] Work Phone: Blood lymphocytes/100 leukoc yteson 06-05-2022 Lymphocytes/100 WBC (Bld) 30.9 % 19-41 [facility] Work Phone: Blood monocytes/100 leukocyt eson 06-05-2022 Monocytes/100 WBC (Bld) 7.0 % 0-10 [facility] Work Phone: Blood platelet mean volumeon 06-05-2022 Platelet mean volume (Bld) [Entitic vol] 9.7 fL 6.2-12.0 [facility] Work Phone: Determination of erythrocyte mean corpuscular volume (MCV)on 06-05-2022 MCV (RBC) [Entitic vol] 89.6 fL 81-99 [facility] Work Phone: Hematocrit Auto (Bld) [Volum e fraction]on 06-05-2022 Hematocrit (Bld) [Volume fraction] 42.1 % 37-47 [facility] Work Phone: Ketones Test strip Ql (U)on 06-05-2022 Ketones Ql (U) Negative Negative [facility] Work Phone: Laboratory - Chemistry and C hemistry - challengeon 06-05-2022 ALP [Catalytic activity/Vol] 162 U/L 45-117 [facility] Work Phone: ALT [Catalytic activity/Vol] 68 U/L 13-56 [facility] Work Phone: CO2 [Moles/Vol] 25.0 mmol/L 21.0-32.0 [facility] Work Phone: Globulin (S) [Mass/Vol] 3.9 g/dL 2.2-4.2 [facility] Work Phone: Urea nitrogen/Creatinine [Mass ratio] 22.3 mg/mg 10-20 [facility] Work Phone: Laboratory - Drug toxicology on 06-05-2022 Amphetamines Ql (U) Negative <1000 ng/mL [facility] Work Phone: Benzodiazepines Ql (U) Negative < 200 ng/mL [facility] Work Phone: Cannabinoids Screen Ql (U) Negative < 50 ng/mL [facility] Work Phone: Cocaine Ql (U) Negative < 300 ng/mL [facility] Work Phone: Opiates Ql (U) Negative < 300 ng/mL [facility] Work Phone: Laboratory - Hematology and Cell countson 06-05-2022 Erythrocyte distribution width (RBC) [Entitic vol] 46.8 fL 35.1-43.9 [facility] Work Phone: Erythrocyte distribution width (RBC) [Ratio] 14.2 % 11.6-14.6 [facility] Work Phone: Immature granulocytes/100 WBC (Bld) 0.500 % 0.0-0.9 [facility] Work Phone: Comment on above: IG% - Immature Granu locytes (promyelocytes, myelocytes and metamyelocytes) > 1% indicates that a LEFT SHIFT is Present. MCH (RBC) [Entitic mass] 30.0 pg 27.0-32.0 [facility] Work Phone: Nucleated RBC/100 WBC (Bld) [Ratio] 0 % 0-5 [facility] Work Phone: MCHC Auto (RBC) [Mass/Vol]on 06-05-2022 MCHC (RBC) [Mass/Vol] 33.5 g/dL 32-36 [facility] Work Phone: Mucus LM Ql (Urine sed)on Mucus Ql (Urine sed) 0 SEEN /hpf [facility] Work Phone: Nitrite Test strip Ql (U)on 06-05-2022 Nitrite Ql (U) Negative Negative [facility] Work Phone: No Panel Informationon 06-05 Estimated Creatinine Clearance Calc 64.27 ml/min [facility] Work Phone: Estimated GFR (MDRD) Amer 107 mL/min >60 [facility] Work Phone: Comment on above: GFR Calc Estimated GFR (MDRD) Non-Af Amer 89 mL/min >60 [facility] Work Phone: Comment on above: Non- GFR Calc Ethyl Alcohol Level < 3.0 mg/dL [facility] Work Phone: Comment on above: The serum:whole bloo d ethanol ratio is approximately 1.14and varies slightly with hematocrit. Medical Alcohol reference interval and critical value innon-tolerant individuals; 50 - 100 Impairment 100 Intoxication 100 - 250 Severe Poisoning 250 - 400 Deep/possible fatal coma Troponin I High Sensitivity < 3 pg/mL 3.0-54.0 [facility] Work Phone: Comment on above: Please Note: New Janeth t Units and Gender Specific Reference Ranges. For more information see Policy Stat Procedure [place] High Sensitivity Troponin (TNIH) and attachments. MDMA (Ecstasy) Screen Negative < 500 ng/mL [facility] Work Phone: Urine Barbiturates Screen Negative < 200 ng/mL [facility] Work Phone: Urine Drug Screen Comment [facility] Work Phone: Comment on above: CONFIRMATORY TESTING [...] Urine Methadone Screen Negative < 300 ng/mL [facility] Work Phone: Platelets bldon 06-05-2022 Platelets (Bld) [#/Vol] 220 10*3/uL 150-450 [facility] Work Phone: Protein Test strip Ql (U)on 06-05-2022 Protein Ql (U) Negative Negative [facility] Work Phone: Serum or plasma albumin lawrence urement (mass/volume)on 06-05-2022 Albumin [Mass/Vol] 3.7 g/dL 3.2-5.0 [facility] Work Phone: Serum or plasma albumin/glob ulin mass ratioon 06-05-2022 Albumin/Globulin [Mass ratio] 0.9 {ratio} 0.9-2.4 [facility] Work Phone: Serum or plasma calcium lawrence urement (mass/volume)on 06-05-2022 Calcium [Mass/Vol] 9.2 mg/dL 8.5-10.1 [facility] Work Phone: Serum or plasma creatinine m easurement (mass/volume)on 06-05-2022 Creatinine [Mass/Vol] 0.72 mg/dL 0.55-1.02 [facility] Work Phone: Comment on above: The validity of the calculated GFR & GFRAA in patients over 70 years has not been determined. Clinical correlation is essential. Serum or plasma urea nitroge n measurement (mass/volume)on 06-05-2022 Urea nitrogen [Mass/Vol] 16 mg/dL 7-18 [facility] Work Phone: Squamous epithelial cells de tection in urine sediment by light microscopyon 06-05-2022 Epithelial cells.squamous LM Ql (Urine sed) 0 SEEN /hpf 5-10 [facility] Work Phone: Thin prep Papanicolaou smear with manual screeningon 06-05-2022 Thin prep Papanicolaou smear with manual screening 52 U/L 15-37 [facility] Work Phone: Thin prep Papanicolaou smear with manual screening 8 5-15 [facility] Work Phone: Urine blood detectionon 05-14 RBC Ql (U) Negative Negative [facility] Work Phone: RBC Ql (U) 0 SEEN /hpf 0-5 [facility] Work Phone: Urine clarityon 06-05-2022 Clarity (U) Clear Clear [facility] Work Phone: Urine color determinationon 06-05-2022 Color (U) Straw Yellow [facility] Work Phone: Urine glucose detectionon Glucose Ql (U) 1000 mg/dl Normal [facility] Work Phone: Urine leukocyte esterase det ection by dipstickon 06-05-2022 Leukocyte esterase Test strip Ql (U) Negative Negative [facility] Work Phone: Urine pHon 06-05-2022 pH (U) 6.0 [pH] 5.0 - 8.0 [facility] Work Phone: Urine phencyclidine (PCP) de tectionon 06-05-2022 Phencyclidine Ql (U) Negative < 25 ng/mL [facility] Work Phone: Urine sediment bacteria coun t by microscopy (number/high power field)on 06-05-2022 Bacteria LM.HPF (Urine sed) [#/Area] 0 /[HPF] None Seen [facility] Work Phone: Urine specific gravity measu rementon 06-05-2022 Specific gravity (U) [Rel density] 1.010 1.002-1.030 [facility] Work Phone: Urobilinogen Auto test strip Ql (U)on 06-05-2022 Urobilinogen Ql (U) Normal mg/dl Normal [facility] Work Phone: Absolute lymphocyte counton 05-17-2022 Lymphocytes Auto (Unsp spec) [#/Vol] 2.96 10*3/uL 0.83-4.51 [facility] Work Phone: Basophil percentageon 2021 Basophils/100 WBC (Bld) 0.5 % 0-1 [facility] Work Phone: Eosinophils/100 WBC (Bld) 0.0 % 0-5 [facility] Work Phone: Neutrophils (Bld) [#/Vol] 5.6 10*3/uL 2.0-7.7 [facility] Work Phone: Neutrophils/100 WBC (Bld) 59.7 % 47-70 [facility] Work Phone: WBC (Bld) [#/Vol] 9.4 10*3/uL 4.4-11.0 [facility] Work Phone: Blood erythrocytes count (nu mber/volume)on 05-17-2022 RBC (Bld) [#/Vol] 4.82 10*6/uL 4.2-5.4 [facility] Work Phone: [phone] Blood hemoglobin measurement (mass/volume)on 05-17-2022 Hemoglobin (Bld) [Mass/Vol] 14.1 g/dL 12.0-15.0 [facility] Work Phone: Blood lymphocytes/100 leukoc yteson 05-17-2022 Lymphocytes/100 WBC (Bld) 31.5 % 19-41 [facility] Work Phone: Blood monocytes/100 leukocyt eson 05-17-2022 Monocytes/100 WBC (Bld) 7.8 % 0-10 [facility] Work Phone: Blood platelet mean volumeon 05-17-2022 Platelet mean volume (Bld) [Entitic vol] 10.6 fL 6.2-12.0 [facility] Work Phone: Determination of erythrocyte mean corpuscular volume (MCV)on 05-17-2022 MCV (RBC) [Entitic vol] 90.7 fL 81-99 [facility] Work Phone: Hematocrit Auto (Bld) [Volum e fraction]on 05-17-2022 Hematocrit (Bld) [Volume fraction] 43.7 % 37-47 [facility] Work Phone: Laboratory - Hematology and Cell countson 05-17-2022 Erythrocyte distribution width (RBC) [Entitic vol] 45.5 fL 35.1-43.9 [facility] Work [phone] Erythrocyte distribution width (RBC) [Ratio] 13.9 % 11.6-14.6 [facility] Work [phone] Immature granulocytes/100 WBC (Bld) 0.500 % 0.0-0.9 [facility] Work Phone: [phone] Comment on above: IG% - Immature Granu locytes (promyelocytes, myelocytes and metamyelocytes) > 1% indicates that a LEFT SHIFT is Present. MCH (RBC) [Entitic mass] 29.3 pg 27.0-32.0 [facility] Work Phone: Nucleated RBC/100 WBC (Bld) [Ratio] 0 % 0-5 [facility] Work Phone: MCHC Auto (RBC) [Mass/Vol]on 05-17-2022 MCHC (RBC) [Mass/Vol] 32.3 g/dL 32-36 [facility] Work Phone: No Panel Informationon 05-17 Reactive Lymphocytes RARE [facility] Work Phone: Platelets bldon 05-17-2022 Platelets (Bld) [#/Vol] 189 10*3/uL 150-450 [facility] Work [phone] Absolute lymphocyte counton 04-17-2022 Lymphocytes Auto (Unsp spec) [#/Vol] 2.37 10*3/uL 0.83-4.51 [facility] Work Phone: [phone] Basophil percentageon 2021 Basophils/100 WBC (Bld) 0.3 % 0-1 [facility] Work Phone: Eosinophils/100 WBC (Bld) 0.0 % 0-5 [facility] Work [phone] Neutrophils (Bld) [#/Vol] 7.5 10*3/uL 2.0-7.7 [facility] Work Phone: Neutrophils/100 WBC (Bld) 71.4 % 47-70 [facility] Work Phone: [phone] WBC (Bld) [#/Vol] 10.5 10*3/uL 4.4-11.0 [facility] Work Phone: Blood erythrocytes count (nu mber/volume)on 04-17-2022 RBC (Bld) [#/Vol] 5.00 10*6/uL 4.2-5.4 [facility] Work Phone: Blood hemoglobin measurement (mass/volume)on 04-17-2022 Hemoglobin (Bld) [Mass/Vol] 14.5 g/dL 12.0-15.0 [facility] Work Phone: Blood lymphocytes/100 leukoc yteson 04-17-2022 Lymphocytes/100 WBC (Bld) 22.6 % 19-41 [facility] Work Phone: Blood monocytes/100 leukocyt eson 04-17-2022 Monocytes/100 WBC (Bld) 5.3 % 0-10 [facility] Work Phone: Blood platelet mean volumeon 04-17-2022 Platelet mean volume (Bld) [Entitic vol] 11.6 fL 6.2-12.0 [facility] Work Phone: Determination of erythrocyte mean corpuscular volume (MCV)on 04-17-2022 MCV (RBC) [Entitic vol] 88.4 fL 81-99 [facility] Work Phone: Hematocrit Auto (Bld) [Volum e fraction]on 04-17-2022 Hematocrit (Bld) [Volume fraction] 44.2 % 37-47 [facility] Work Phone: Laboratory - Hematology and Cell countson 04-17-2022 Erythrocyte distribution width (RBC) [Entitic vol] 43.8 fL 35.1-43.9 [facility] Work Phone: Erythrocyte distribution width (RBC) [Ratio] 13.5 % 11.6-14.6 [facility] Work Phone: Immature granulocytes/100 WBC (Bld) 0.400 % 0.0-0.9 [facility] Work Phone: Comment on above: IG% - Immature Granu locytes (promyelocytes, myelocytes and metamyelocytes) > 1% indicates that a LEFT SHIFT is Present. MCH (RBC) [Entitic mass] 29.0 pg 27.0-32.0 [facility] Work Phone: Nucleated RBC/100 WBC (Bld) [Ratio] 0 % 0-5 [facility] Work Phone: MCHC Auto (RBC) [Mass/Vol]on 04-17-2022 MCHC (RBC) [Mass/Vol] 32.8 g/dL 32-36 [facility] Work Phone: Platelets bldon 04-17-2022 Platelets (Bld) [#/Vol] 166 10*3/uL 150-450 [facility] Work Phone: Glucose Glucometer (BldC) [M ass/Vol]on 04-10-2022 Glucose [Mass/Vol] 152 mg/dL 74-106 [facility] Work Phone: Comment on above: MANAGEMENT OF PATIEN T CARE PER NURSING PROTOCOL Absolute lymphocyte counton 04-09-2022 Lymphocytes Auto (Unsp spec) [#/Vol] 2.51 10*3/uL 0.83-4.51 [facility] Work Phone: Basophil percentageon 2021 Basophils/100 WBC (Bld) 0.5 % 0-1 [facility] Work Phone: Chloride [Moles/Vol] 105 mmol/L 98-107 [facility] Work Phone: Eosinophils/100 WBC (Bld) 0.1 % 0-5 [facility] Work Phone: [phone] Glucose [Mass/Vol] 151 mg/dL 74-106 [facility] Work Phone: Comment on above: Slight Lipemia, Resu lt may be falsely increased.Fasting Glucose result greater than or equal to 126 mg/dL suggests DIABETES MELLITUS per A.D.A. criteria. Neutrophils (Bld) [#/Vol] 6.1 10*3/uL 2.0-7.7 [facility] Work Phone: Neutrophils/100 WBC (Bld) 65.3 % 47-70 [facility] Work Phone: Potassium [Moles/Vol] 3.9 mmol/L 3.5-5.1 [facility] Work Phone: Comment on above: Slight Lipemia, Resu lt may be falsely increased. Sodium [Moles/Vol] 138 mmol/L 136-145 [facility] Work Phone: WBC (Bld) [#/Vol] 9.3 10*3/uL 4.4-11.0 [facility] Work Phone: Blood erythrocytes count (nu mber/volume)on 04-09-2022 RBC (Bld) [#/Vol] 4.91 10*6/uL 4.2-5.4 [facility] Work Phone: Blood hemoglobin measurement (mass/volume)on 04-09-2022 Hemoglobin (Bld) [Mass/Vol] 14.3 g/dL 12.0-15.0 [facility] Work Phone: Blood lymphocytes/100 leukoc yteson 04-09-2022 Lymphocytes/100 WBC (Bld) 27.0 % 19-41 [facility] Work Phone: Blood manual differential co mment interpretation (narrative result)on 04-09-2022 Manual differential comment Diego (Bld) [Interp] SCANNED [facility] Work Phone: Comment on above: AUTO DIFF OK Blood monocytes/100 leukocyt eson 04-09-2022 Monocytes/100 WBC (Bld) 6.9 % 0-10 [facility] Work Phone: Blood platelet mean volumeon 04-09-2022 Platelet mean volume (Bld) [Entitic vol] 10.2 fL 6.2-12.0 [facility] Work Phone: Determination of erythrocyte mean corpuscular volume (MCV)on 04-09-2022 MCV (RBC) [Entitic vol] 88.4 fL 81-99 [facility] Work Phone: Hematocrit Auto (Bld) [Volum e fraction]on 04-09-2022 Hematocrit (Bld) [Volume fraction] 43.4 % 37-47 [facility] Work Phone: Laboratory - Chemistry and C hemistry - challengeon 04-09-2022 CO2 [Moles/Vol] 25.0 mmol/L 21.0-32.0 [facility] Work Phone: Comment on above: Slight Lipemia, Resu lt may be falsely increased. Urea nitrogen/Creatinine [Mass ratio] 24.0 mg/mg 10-20 [facility] Work Phone: Laboratory - Drug toxicology on 04-09-2022 Amphetamines Ql (U) Negative <1000 ng/mL [facility] Work Phone: Benzodiazepines Ql (U) Negative < 200 ng/mL [facility] Work Phone: Cannabinoids Screen Ql (U) Negative < 50 ng/mL [facility] Work Phone: Cocaine Ql (U) Negative < 300 ng/mL [facility] Work Phone: Opiates Ql (U) Negative < 300 ng/mL [facility] Work Phone: Laboratory - Hematology and Cell countson 04-09-2022 Erythrocyte distribution width (RBC) [Entitic vol] 45.0 fL 35.1-43.9 [facility] Work Phone: Erythrocyte distribution width (RBC) [Ratio] 14.0 % 11.6-14.6 [facility] Work Phone: Immature granulocytes/100 WBC (Bld) 0.200 % 0.0-0.9 [facility] Work Phone: Comment on above: IG% - Immature Granu locytes (promyelocytes, myelocytes and metamyelocytes) > 1% indicates that a LEFT SHIFT is Present. MCH (RBC) [Entitic mass] 29.1 pg 27.0-32.0 [facility] Work Phone: Nucleated RBC/100 WBC (Bld) [Ratio] 0 % 0-5 [facility] Work Phone: MCHC Auto (RBC) [Mass/Vol]on 04-09-2022 MCHC (RBC) [Mass/Vol] 32.9 g/dL 32-36 [facility] Work Phone: No Panel Informationon 04-09 Estimated Creatinine Clearance Calc 58.57 ml/min [facility] Work Phone: Estimated GFR (MDRD) Amer 96 mL/min >60 [facility] Work Phone: Comment on above: GFR Calc Estimated GFR (MDRD) Non-Af Amer 79 mL/min >60 [facility] Work Phone: Comment on above: Non- GFR Calc Ethyl Alcohol Level 9.0 mg/dL [facility] Work Phone: Comment on above: The serum:whole bloo d ethanol ratio is approximately 1.14and varies slightly with hematocrit. Medical Alcohol reference interval and critical value innon-tolerant individuals; 50 - 100 Impairment 100 Intoxication 100 - 250 Severe Poisoning 250 - 400 Deep/possible fatal coma MDMA (Ecstasy) Screen Negative < 500 ng/mL [facility] Work Phone: Urine Barbiturates Screen Negative < 200 ng/mL [facility] Work Phone: Urine Drug Screen Comment [facility] Work Phone: Comment on above: CONFIRMATORY TESTING [...] Methadone Screen Negative < 300 ng/mL [facility] Work Phone: Platelets bldon 04-09-2022 Platelets (Bld) [#/Vol] 197 10*3/uL 150-450 [facility] Work Phone: Serum or plasma calcium lawrence urement (mass/volume)on 04-09-2022 Calcium [Mass/Vol] 9.2 mg/dL 8.5-10.1 [facility] Work Phone: Comment on above: Slight Lipemia, Resu lt may be falsely increased. Serum or plasma creatinine m easurement (mass/volume)on 04-09-2022 Creatinine [Mass/Vol] 0.79 mg/dL 0.55-1.02 [facility] Work Phone: Comment on above: Slight Lipemia, Resu lt may be falsely increased.The validity of the calculated GFR & GFRAA in patients over 70 years has not been determined. Clinical correlation is essential. Serum or plasma urea nitroge n measurement (mass/volume)on 04-09-2022 Urea nitrogen [Mass/Vol] 19 mg/dL 7-18 [facility] Work Phone: Comment on above: Slight Lipemia, Resu lt may be falsely increased. Thin prep Papanicolaou smear with manual screeningon 04-09-2022 Thin prep Papanicolaou smear with manual screening 8 5-15 [facility] Work Phone: Urine phencyclidine (PCP) de tectionon 04-09-2022 Phencyclidine Ql (U) Negative < 25 ng/mL [facility] Work Phone: Absolute lymphocyte counton 03-20-2022 Lymphocytes Auto (Unsp spec) [#/Vol] 2.53 10*3/uL 0.83-4.51 [facility] Work Phone: Basophil percentageon 2021 Basophils/100 WBC (Bld) 0.2 % 0-1 [facility] Work Phone: Eosinophils/100 WBC (Bld) 0.1 % 0-5 [facility] Work Phone: [phone] Neutrophils (Bld) [#/Vol] 5.7 10*3/uL 2.0-7.7 [facility] Work Phone: [phone] Neutrophils/100 WBC (Bld) 64.2 % 47-70 [facility] Work Phone: WBC (Bld) [#/Vol] 8.9 10*3/uL 4.4-11.0 [facility] Work Phone: Blood erythrocytes count (nu mber/volume)on 03-20-2022 RBC (Bld) [#/Vol] 4.80 10*6/uL 4.2-5.4 [facility] Blood hemoglobin measurement (mass/volume)on 03-20-2022 Hemoglobin (Bld) [Mass/Vol] 13.9 g/dL 12.0-15.0 [facility] Work Phone: Blood lymphocytes/100 leukoc yteson 03-20-2022 Lymphocytes/100 WBC (Bld) 28.3 % 19-41 [facility] Work Phone: Blood monocytes/100 leukocyt eson 03-20-2022 Monocytes/100 WBC (Bld) 7.0 % 0-10 [facility] Work Phone: Blood platelet adequacy dete ction by light microscopyon 03-20-2022 Platelets LM Ql (Bld) ADEQUATE ADEQ [facility] Work Phone: Blood platelet mean volumeon 03-20-2022 Platelet mean volume (Bld) [Entitic vol] 11.1 fL 6.2-12.0 [facility] Work Phone: Determination of erythrocyte mean corpuscular volume (MCV)on 03-20-2022 MCV (RBC) [Entitic vol] 89.8 fL 81-99 [facility] Work Phone: Hematocrit Auto (Bld) [Volum e fraction]on 03-20-2022 Hematocrit (Bld) [Volume fraction] 43.1 % 37-47 [facility] Work Phone: Laboratory - Hematology and Cell countson 03-20-2022 Erythrocyte distribution width (RBC) [Entitic vol] 44.5 fL 35.1-43.9 [facility] Work Phone: Erythrocyte distribution width (RBC) [Ratio] 13.7 % 11.6-14.6 [facility] Work Phone: Immature granulocytes/100 WBC (Bld) 0.200 % 0.0-0.9 [facility] Work Phone: [phone] Comment on above: IG% - Immature Granu locytes (promyelocytes, myelocytes and metamyelocytes) > 1% indicates that a LEFT SHIFT is Present. MCH (RBC) [Entitic mass] 29.0 pg 27.0-32.0 [facility] Work Phone: Nucleated RBC/100 WBC (Bld) [Ratio] 0 % 0-5 [facility] Work Phone: MCHC Auto (RBC) [Mass/Vol]on 03-20-2022 MCHC (RBC) [Mass/Vol] 32.3 g/dL 32-36 [facility]: Platelets bldon 03-20-2022 Platelets (Bld) [#/Vol] 191 10*3/uL 150-450 [facility] Work Phone: RBC morphologyon 03-20-2022 RBC morphology finding Nom (Bld) NORM C+C NORMAL NORM C&C [facility] Work Phone: Absolute lymphocyte counton 02-13-2022 Lymphocytes Auto (Unsp spec) [#/Vol] 1.99 10*3/uL 0.83-4.51 [facility] Work Phone: Basophil percentageon 2021 Basophils/100 WBC (Bld) 0.5 % 0-1 [facility] Work Phone: Eosinophils/100 WBC (Bld) 0.1 % 0-5 [facility] Work Phone: Neutrophils (Bld) [#/Vol] 5.1 10*3/uL 2.0-7.7 [facility] Work Phone: Neutrophils/100 WBC (Bld) 66.1 % 47-70 [facility] Work Phone: WBC (Bld) [#/Vol] 7.7 10*3/uL 4.4-11.0 [facility] Work Phone: Blood erythrocytes count (nu mber/volume)on 02-13-2022 RBC (Bld) [#/Vol] 4.99 10*6/uL 4.2-5.4 [facility] Work Phone: Blood hemoglobin measurement (mass/volume)on 02-13-2022 Hemoglobin (Bld) [Mass/Vol] 14.4 g/dL 12.0-15.0 [facility] Work Phone: Blood lymphocytes/100 leukoc yteson 02-13-2022 Lymphocytes/100 WBC (Bld) 25.7 % 19-41 [facility] Work Phone: Blood monocytes/100 leukocyt eson 02-13-2022 Monocytes/100 WBC (Bld) 7.1 % 0-10 [facility] Work Phone: Blood platelet mean volumeon 02-13-2022 Platelet mean volume (Bld) [Entitic vol] 10.2 fL 6.2-12.0 [facility] Work Phone: Determination of erythrocyte mean corpuscular volume (MCV)on 02-13-2022 MCV (RBC) [Entitic vol] 90.6 fL 81-99 [facility] Work Phone: [phone] Hematocrit Auto (Bld) [Volum e fraction]on 02-13-2022 Hematocrit (Bld) [Volume fraction] 45.2 % 37-47 [facility] Work Phone: [phone] Laboratory - Hematology and Cell countson 02-13-2022 Erythrocyte distribution width (RBC) [Entitic vol] 45.9 fL 35.1-43.9 [facility] Work Phone: [phone] Erythrocyte distribution width (RBC) [Ratio] 13.9 % 11.6-14.6 [facility] Work Phone: Immature granulocytes/100 WBC (Bld) 0.500 % 0.0-0.9 [facility] Work Phone: [phone] Comment on above: IG% - Immature Granu locytes (promyelocytes, myelocytes and metamyelocytes) > 1% indicates that a LEFT SHIFT is Present. MCH (RBC) [Entitic mass] 28.9 pg 27.0-32.0 [facility] Work Phone: Nucleated RBC/100 WBC (Bld) [Ratio] 0 % 0-5 [facility] Work Phone: MCHC Auto (RBC) [Mass/Vol]on 02-13-2022 MCHC (RBC) [Mass/Vol] 31.9 g/dL 32-36 [facility] Work Phone: Platelets bldon 02-13-2022 Platelets (Bld) [#/Vol] 231 10*3/uL 150-450 [facility] Work Phone: Absolute lymphocyte counton 01-14-2022 Lymphocytes Auto (Unsp spec) [#/Vol] 3.17 10*3/uL 0.83-4.51 [facility] Work Phone: Basophil percentageon 2021 Basophils/100 WBC (Bld) 0.6 % 0-1 [facility] Work Phone: Eosinophils/100 WBC (Bld) 0.2 % 0-5 [facility] Work Phone: Neutrophils (Bld) [#/Vol] 6.3 10*3/uL 2.0-7.7 [facility] Work Phone: Neutrophils/100 WBC (Bld) 61.6 % 47-70 [facility] Work Phone: WBC (Bld) [#/Vol] 10.3 10*3/uL 4.4-11.0 [facility] Work Phone: Blood erythrocytes count (nu mber/volume)on 01-14-2022 RBC (Bld) [#/Vol] 5.25 10*6/uL 4.2-5.4 [facility] Work Phone: Blood hemoglobin measurement (mass/volume)on 01-14-2022 Hemoglobin (Bld) [Mass/Vol] 15.0 g/dL 12.0-15.0 [facility] Work Phone: Blood lymphocytes/100 leukoc yteson 01-14-2022 Lymphocytes/100 WBC (Bld) 30.9 % 19-41 [facility] Work Phone: Blood monocytes/100 leukocyt eson 01-14-2022 Monocytes/100 WBC (Bld) 6.3 % 0-10 [facility] Work Phone: Blood platelet mean volumeon 01-14-2022 Platelet mean volume (Bld) [Entitic vol] 10.7 fL 6.2-12.0 [facility] Work Phone: Determination of erythrocyte mean corpuscular volume (MCV)on 01-14-2022 MCV (RBC) [Entitic vol] 89.1 fL 81-99 [facility] Work Phone: Hematocrit Auto (Bld) [Volum e fraction]on 01-14-2022 Hematocrit (Bld) [Volume fraction] 46.8 % 37-47 [facility] Work Phone: Laboratory - Hematology and Cell countson 01-14-2022 Erythrocyte distribution width (RBC) [Entitic vol] 44.2 fL 35.1-43.9 [facility] Work Phone: Erythrocyte distribution width (RBC) [Ratio] 13.5 % 11.6-14.6 [facility] Work Phone: Immature granulocytes/100 WBC (Bld) 0.400 % 0.0-0.9 [facility] Work Phone: Comment on above: IG% - Immature Granu locytes (promyelocytes, myelocytes and metamyelocytes) > 1% indicates that a LEFT SHIFT is Present. MCH (RBC) [Entitic mass] 28.6 pg 27.0-32.0 [facility] Work Phone: Nucleated RBC/100 WBC (Bld) [Ratio] 0 % 0-5 [facility] Work Phone: MCHC Auto (RBC) [Mass/Vol]on 01-14-2022 MCHC (RBC) [Mass/Vol] 32.1 g/dL 32-36 [facility] Work Phone: No Panel Informationon 01-14 Reactive Lymphocytes RARE [facility] Work Phone: Platelets bldon 01-14-2022 Platelets (Bld) [#/Vol] 224 10*3/uL 150-450 [facility] Work Phone: Absolute lymphocyte counton 12-13-2021 Lymphocytes Auto (Unsp spec) [#/Vol] 2.05 10*3/uL 0.83-4.51 [facility] Work Phone: Basophil percentageon 2021 Basophils/100 WBC (Bld) 0.5 % 0-1 [facility] Work Phone: Eosinophils/100 WBC (Bld) 0.1 % 0-5 [facility] Work Phone: Neutrophils (Bld) [#/Vol] 4.8 10*3/uL 2.0-7.7 [facility] Work Phone: Neutrophils/100 WBC (Bld) 64.5 % 47-70 [facility] Work Phone: WBC (Bld) [#/Vol] 7.4 10*3/uL 4.4-11.0 [facility] Work Phone: Blood erythrocytes count (nu mber/volume)on 12-13-2021 RBC (Bld) [#/Vol] 4.90 10*6/uL 4.2-5.4 [facility] Work Phone: Blood hemoglobin measurement (mass/volume)on 12-13-2021 Hemoglobin (Bld) [Mass/Vol] 14.6 g/dL 12.0-15.0 [facility] Work Phone: Blood lymphocytes/100 leukoc yteson 12-13-2021 Lymphocytes/100 WBC (Bld) 27.6 % 19-41 [facility] Work Phone: Blood monocytes/100 leukocyt eson 12-13-2021 Monocytes/100 WBC (Bld) 6.9 % 0-10 [facility] Work Phone: Blood platelet mean volumeon 12-13-2021 Platelet mean volume (Bld) [Entitic vol] 12.2 fL 6.2-12.0 [facility] Work Phone: Determination of erythrocyte mean corpuscular volume (MCV)on 12-13-2021 MCV (RBC) [Entitic vol] 91.0 fL 81-99 [facility] Work Phone: Hematocrit Auto (Bld) [Volum e fraction]on 12-13-2021 Hematocrit (Bld) [Volume fraction] 44.6 % 37-47 [facility] Work Phone: Laboratory - Hematology and Cell countson 12-13-2021 Erythrocyte distribution width (RBC) [Entitic vol] 45.6 fL 35.1-43.9 [facility] Work Phone: Erythrocyte distribution width (RBC) [Ratio] 13.6 % 11.6-14.6 [facility] Work Phone: Immature granulocytes/100 WBC (Bld) 0.400 % 0.0-0.9 [facility] Work Phone: Comment on above: IG% - Immature Granu locytes (promyelocytes, myelocytes and metamyelocytes) > 1% indicates that a LEFT SHIFT is Present. MCH (RBC) [Entitic mass] 29.8 pg 27.0-32.0 [facility] Work Phone: Nucleated RBC/100 WBC (Bld) [Ratio] 0 % 0-5 [facility] Work Phone: MCHC Auto (RBC) [Mass/Vol]on 12-13-2021 MCHC (RBC) [Mass/Vol] 32.7 g/dL 32-36 [facility] Work Phone: No Panel Informationon 12-13 Reactive Lymphocytes RARE [facility] Work Phone: Platelets bldon 12-13-2021 Platelets (Bld) [#/Vol] 193 10*3/uL 150-450 [facility] Work Phone: Absolute lymphocyte counton 11-20-2021 Lymphocytes Auto (Unsp spec) [#/Vol] 2.28 10*3/uL 0.83-4.51 [facility] Work Phone: Basophil percentageon 2021 Basophils/100 WBC (Bld) 0.7 % 0-1 [facility] Work Phone: Eosinophils/100 WBC (Bld) 0.2 % 0-5 [facility] Work Phone: Neutrophils (Bld) [#/Vol] 6.6 10*3/uL 2.0-7.7 [facility] Work Phone: Neutrophils/100 WBC (Bld) 69.0 % 47-70 [facility] Work Phone: WBC (Bld) [#/Vol] 9.6 10*3/uL 4.4-11.0 [facility] Blood erythrocytes count (nu mber/volume)on 11-20-2021 RBC (Bld) [#/Vol] 5.04 10*6/uL 4.2-5.4 [facility] Work Phone: Blood hemoglobin measurement (mass/volume)on 11-20-2021 Hemoglobin (Bld) [Mass/Vol] 14.7 g/dL 12.0-15.0 [facility] Work Phone: Blood lymphocytes/100 leukoc yteson 11-20-2021 Lymphocytes/100 WBC (Bld) 23.7 % 19-41 [facility] Work Phone: Blood monocytes/100 leukocyt eson 11-20-2021 Monocytes/100 WBC (Bld) 6.1 % 0-10 [facility] Work Phone: Blood platelet mean volumeon 11-20-2021 Platelet mean volume (Bld) [Entitic vol] 9.9 fL 6.2-12.0 [facility] Work Phone: Determination of erythrocyte mean corpuscular volume (MCV)on 11-20-2021 MCV (RBC) [Entitic vol] 91.1 fL 81-99 [facility] Work Phone: Hematocrit Auto (Bld) [Volum e fraction]on 11-20-2021 Hematocrit (Bld) [Volume fraction] 45.9 % 37-47 [facility] Work Phone: Laboratory - Hematology and Cell countson 11-20-2021 Erythrocyte distribution width (RBC) [Entitic vol] 46.8 fL 35.1-43.9 [facility] Work Phone: Erythrocyte distribution width (RBC) [Ratio] 14.0 % 11.6-14.6 [facility] Work Phone: Immature granulocytes/100 WBC (Bld) 0.300 % 0.0-0.9 [facility] Work Phone: Comment on above: IG% - Immature Granu locytes (promyelocytes, myelocytes and metamyelocytes) > 1% indicates that a LEFT SHIFT is Present. MCH (RBC) [Entitic mass] 29.2 pg 27.0-32.0 [facility] Work Phone: Nucleated RBC/100 WBC (Bld) [Ratio] 0 % 0-5 [facility] Work Phone: MCHC Auto (RBC) [Mass/Vol]on 11-20-2021 MCHC (RBC) [Mass/Vol] 32.0 g/dL 32-36 [facility] Work Phone: No Panel Informationon 11-20 [facility] Work [facility]: Platelets bldon 11-20-2021 Platelets (Bld) [#/Vol] 227 10*3/uL 150-450 [facility] Work Phone: Absolute lymphocyte counton 10-16-2021 Lymphocytes Auto (Unsp spec) [#/Vol] 2.02 10*3/uL 0.83-4.51 [facility] Work Phone: Basophil percentageon 2021 Ammonia (P) [Moles/Vol] 22.0 umol/L 11-32 [facility] Work Phone: Comment on above: Slight Lipemia, Resu lt may be falsely increased. Basophils/100 WBC (Bld) 0.6 % 0-1 [facility] Work Phone: Eosinophils/100 WBC (Bld) 0.1 % 0-5 [facility] Work Phone: Neutrophils (Bld) [#/Vol] 6.2 10*3/uL 2.0-7.7 [facility] Work Phone: Neutrophils/100 WBC (Bld) 70.6 % 47-70 [facility] Work Phone: WBC (Bld) [#/Vol] 8.8 10*3/uL 4.4-11.0 [facility] Work Phone: [phone] Blood erythrocytes count (nu mber/volume)on 10-16-2021 RBC (Bld) [#/Vol] 4.93 10*6/uL 4.2-5.4 [facility] Work Phone: [phone] Blood hemoglobin measurement (mass/volume)on 10-16-2021 Hemoglobin (Bld) [Mass/Vol] 14.2 g/dL 12.0-15.0 [facility] Work Phone: Blood lymphocytes/100 leukoc yteson 10-16-2021 Lymphocytes/100 WBC (Bld) 23.1 % 19-41 [facility] Work Phone: Blood monocytes/100 leukocyt eson 10-16-2021 Monocytes/100 WBC (Bld) 5.1 % 0-10 [facility] Work Phone: Blood platelet mean volumeon 10-16-2021 Platelet mean volume (Bld) [Entitic vol] 9.6 fL 6.2-12.0 [facility] Work Phone: Determination of erythrocyte mean corpuscular volume (MCV)on 10-16-2021 MCV (RBC) [Entitic vol] 89.7 fL 81-99 [facility] Work Phone: Hematocrit Auto (Bld) [Volum e fraction]on 10-16-2021 Hematocrit (Bld) [Volume fraction] 44.2 % 37-47 [facility] Work Phone: Laboratory - Hematology and Cell countson 10-16-2021 Erythrocyte distribution width (RBC) [Entitic vol] 44.6 fL 35.1-43.9 [facility] Work Phone: Erythrocyte distribution width (RBC) [Ratio] 13.7 % 11.6-14.6 [facility] Work Phone: Immature granulocytes/100 WBC (Bld) 0.500 % 0.0-0.9 [facility] Work Phone: Comment on above: IG% - Immature Granu locytes (promyelocytes, myelocytes and metamyelocytes) > 1% indicates that a LEFT SHIFT is Present. MCH (RBC) [Entitic mass] 28.8 pg 27.0-32.0 [facility] Work Phone: Nucleated RBC/100 WBC (Bld) [Ratio] 0 % 0-5 [facility] Work Phone: MCHC Auto (RBC) [Mass/Vol]on 10-16-2021 MCHC (RBC) [Mass/Vol] 32.1 g/dL 32-36 [facility] Work Phone: Platelets bldon 10-16-2021 Platelets (Bld) [#/Vol] 226 10*3/uL 150-450 [facility] Work Phone: Absolute lymphocyte counton 09-24-2021 Lymphocytes Auto (Unsp spec) [#/Vol] 2.52 10*3/uL 0.83-4.51 [facility] Work Phone: Basophil percentageon 2020 Eosinophils/100 WBC (Bld) 0.2 % 0-5 [facility] Work Phone: Neutrophils (Bld) [#/Vol] 6.5 10*3/uL 2.0-7.7 [facility] Work Phone: WBC (Bld) [#/Vol] 9.6 10*3/uL 4.4-11.0 [facility] Work Phone: Blood erythrocytes count (nu mber/volume)on 09-24-2021 RBC (Bld) [#/Vol] 4.89 10*6/uL 4.2-5.4 [facility] Work Phone: Blood hemoglobin measurement (mass/volume)on 09-24-2021 Hemoglobin (Bld) [Mass/Vol] 14.4 g/dL 12.0-15.0 [facility] Work Phone: Blood lymphocytes/100 leukoc yteson 09-24-2021 Lymphocytes/100 WBC (Bld) 26.2 % 19-41 [facility] Work Phone: Blood monocytes/100 leukocyt eson 09-24-2021 Monocytes/100 WBC (Bld) 4.7 % 0-10 [facility] Work Phone: Blood platelet mean volumeon 09-24-2021 Platelet mean volume (Bld) [Entitic vol] 12.3 fL 6.2-12.0 [facility] Work Phone: Determination of erythrocyte mean corpuscular volume (MCV)on 09-24-2021 MCV (RBC) [Entitic vol] 90.2 fL 81-99 [facility] Work Phone: Hematocrit Auto (Bld) [Volum e fraction]on 09-24-2021 Hematocrit (Bld) [Volume fraction] 44.1 % 37-47 [facility] Work Phone: Laboratory - Hematology and Cell countson 09-24-2021 Basophils/100 WBC (Unsp spec) 0.5 % 0-1 [facility] Work Phone: Erythrocyte distribution width (RBC) [Entitic vol] 46.2 fL 35.1-43.9 [facility] Work Phone: Erythrocyte distribution width (RBC) [Ratio] 14.0 % 11.6-14.6 [facility] Work Phone: Immature granulocytes/100 WBC (Bld) 0.500 % 0.0-0.9 [facility] Work Phone: Comment on above: IG% - Immature Granu locytes (promyelocytes, myelocytes and metamyelocytes) > 1% indicates that a LEFT SHIFT is Present. MCH (RBC) [Entitic mass] 29.4 pg 27.0-32.0 [facility] Work Phone: [phone] Neutrophils/100 WBC (Bld) 67.9 % 47-70 [facility] Work Phone: Nucleated RBC/100 WBC (Bld) [Ratio] 0 % 0-5 [facility] Work Phone: MCHC Auto (RBC) [Mass/Vol]on 09-24-2021 MCHC (RBC) [Mass/Vol] 32.7 g/dL 32-36 [facility] Work Phone: [phone] Platelets bldon 09-24-2021 Platelets (Bld) [#/Vol] 179 10*3/uL 150-450 [facility] Work Phone: CT BRAIN WO IVCONon 07-19-[address] BRAIN WO IVCON * * *Final Report* * * DATE OF EXAM: Jul 19 2021 4:54PM [facility] 0[facility] - CT BRAIN WO [...] reduction techniques were required COMPARISON: None. 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 Post-operative change: [...] warranted. 2. Chronic changes, as detailed above. Indian Nanny: MILDRED Transcribe Date/Time: Jul 19 2021 5:08P Dictated by : CHAPARRITA STRINGER MD This examination was interpreted and the report reviewed and electronically signed by: CHAPARRITA STRINGER MD on Jul 19 2021 5:14PM EST [id number] Normal [facility] XR Chest PA and Lateralon IMPRESSION: No acute radiographic abnormality. Indian Nanny: MILDRED Transcribe Date/Time: Jul 19 2021 3:33P Dictated by : OMAR DAILEY MD This examination was interpreted and the report reviewed and electronically signed by: OMAR DAILEY MD on Jul 19 2021 3:33PM [facility] DIVISION OF [...] the thoracic spine. DIVISION OF RADIOLOGY Provider, [facility] - 07/19/2021 * * *Final [...] spine. IMPRESSION IMPRESSION: No acute radiographic abnormality. Indian Nanny: PSCB Transcribe Date/Time: Jul 19 2021 3:33P Dictated by : OMAR DAILEY MD This examination was interpreted and the report reviewed and electronically signed by: OMAR DAILEY MD on Jul 19 2021 3:33PM [facility] Radiology Study observation (narrative) Pola etienne [facility] XR Chest PA and LateralOrder ed By: [facility] Provider on 07-19-[address] [facility] XR Chest PA and Lateralon IMPRESSION: No new or acute radiographic abnormality. Mild areas of scarring or atelectasis are less prominent than previously. Indian Nanny: MILDRED Transcribe Date/Time: Oct 18 2020 9:56A Dictated by : SEGUNDO MOORE MD This examination was interpreted and the report reviewed and electronically signed by: SEGUNDO MOORE MD on Oct 18 2020 9:59AM [facility] DIVISION OF [...] Normal. Other: - DIVISION OF RADIOLOGY Provider, [facility] - 10/18/2020 * * *Final [...] or atelectasis are less prominent than previously. Indian Nanny: MILDRED Transcribe Date/Time: Marco Antonio 6 2021 9:56A Dictated by : SEGUNDO MOORE MD This examination was interpreted and the report reviewed and electronically signed by: SEGUNDO MOORE MD on Oct 18 2020 9:59AM EST [facility] Radiology Study observation (narrative) Pola etienne [facility] XR Chest PA and LateralOrder ed By: [facility] Provider on 10-18-[address] [facility] COVID-19 virus antigen assay SARS-CoV-2 (COVID-19) Ag IA.rapid Ql (Resp) [facility] Work Phone: Vital Signs Date Time Vital Sign Value Performing Clinician Facility 06-28-2025 13:51-0400 Body mass index (BMI) [Ratio] 35.33 kg/m2 Aleksandar Jones MD Work Phone: [facility] 06-28-2025 13:51-0400 Body temperature 96.01 [degF] Aleksandar Jones MD Work Phone: [facility] 06-28-2025 13:51-0400 Body weight 84.82 kg Aleksandar Jones MD Work Phone: [facility] 06-28-2025 13:51-0400 Diastolic blood pressure 68 mm[Hg] Aleksandar Jones MD Work Phone: [facility] 06-28-2025 13:51-0400 Heart rate 108 /min Aleksandar Jones MD Work Phone: [facility] 06-28-2025 13:51-0400 SaO2% (BldA) [Mass fraction] 93 % Aleksandar Jones MD Work Phone: [facility] 06-28-2025 13:51-0400 Systolic blood pressure 100 mm[Hg] Aleksandar Jones MD Work Phone: [facility] 06-23-2025 12:50-0400 Body temperature 97.1 [degF] Dr. Aleksandar Jones MD Work Phone: [facility] 06-23-2025 12:50-0400 Diastolic blood pressure 67 mm[Hg] Dr. Aleksandar Jones MD Work Phone: [facility] 06-23-2025 12:50-0400 Heart rate 90 /min Dr. Aleksandar Jones MD Work Phone: [facility] 06-23-2025 12:50-0400 Respiratory rate 16 /min Dr. Aleksandar Jones MD Work Phone: [facility] 06-23-2025 12:50-0400 SaO2% (BldA) [Mass fraction] 100 % Dr. Aleksandar Jones MD Work Phone: [facility] 06-23-2025 12:50-0400 Systolic blood pressure 122 mm[Hg] Dr. Aleksandar Jones MD Work Phone: [facility] 06-23-2025 09:36-0400 Body height 154.[address] Aleksandar Jones MD Work Phone: 0(240)041-529303 [place] [address] 06-23-2025 09:36-0400 Body mass index (BMI) [Ratio] 35.4 kg/m2 Dr. Aleksandar Jones MD Work Phone: 9(332)947-275768 [place] [address] 06-23-2025 09:36-0400 Body weight [address] Aleksandar Jones MD Work Phone: [facility] 04-04-2025 15:04-0400 Body mass index (BMI) [Ratio] 35.9 kg/m2 Fuentes Renee MD Work Phone: [facility] 04-04-2025 15:04-0400 Body weight 86.18 kg Fuentes Renee MD Work Phone: [facility] 04-04-2025 15:04-0400 Diastolic blood pressure 85 mm[Hg] Fuentes Renee MD Work Phone: [facility] 04-04-2025 15:04-0400 Heart rate 100 /min Fuentes Renee MD Work Phone: [facility] 04-04-2025 15:04-0400 SaO2% (BldA) [Mass fraction] 93 % Fuentes Renee MD Work Phone: [facility] 04-04-2025 15:04-0400 Systolic blood pressure 126 mm[Hg] Fuentes Renee MD Work Phone: [facility] 03-29-2025 08:59-0400 Body height 154.9 cm Aleksandar Jones MD Work Phone: [facility] 03-29-2025 08:59-0400 Body mass index (BMI) [Ratio] 35.45 kg/m2 Aleksandar Jones MD Work Phone: [facility] 03-29-2025 08:59-0400 Body temperature 97.2 [degF] Aleksandar Jones MD Work Phone: [facility] 03-29-2025 08:59-0400 Body weight 85.09 kg Aleksandar Jones MD Work Phone: [facility] 03-29-2025 08:59-0400 Diastolic blood pressure 72 mm[Hg] Aleksandar Jones MD Work Phone: [facility] 03-29-2025 08:59-0400 Heart rate 100 /min Aleksandar Jones MD Work Phone: [facility] 03-29-2025 08:59-0400 Respiratory rate 16 /min Aleksandar Jones MD Work Phone: [facility] 03-29-2025 08:59-0400 SaO2% (BldA) [Mass fraction] 91 % Aleksandar Jones MD Work Phone: [facility] Comment on above: nail filipino 03-29-2025 08:59-0400 Systolic blood pressure 120 mm[Hg] Aleksandar Jones MD Work Phone: [facility] 01-12-2025 10:04-0400 Body mass index (BMI) [Ratio] 35.52 kg/m2 Aleksandar Jones MD Work Phone: [facility] 01-12-2025 10:04-0400 Body weight 85.28 kg Aleksandar Jones MD Work Phone: [facility] 01-12-2025 10:04-0400 Diastolic blood pressure 72 mm[Hg] Aleksandar Jones MD Work Phone: [facility] 01-12-2025 10:04-0400 Heart rate 92 /min Aleksandar Jones MD Work Phone: [facility] 01-12-2025 10:04-0400 SaO2% (BldA) [Mass fraction] 94 % Aleksandar Jones MD Work Phone: [facility] 01-12-2025 10:04-0400 Systolic blood pressure 122 mm[Hg] Aleksandar Jones MD Work Phone: [facility] 01-10-2025 22:11-0400 Body mass index (BMI) [Ratio] 36.6 kg/m2 Dr. Aleksandar Jones MD Work Phone: [facility] 12-28-2024 14:58-0400 Body height 154.9 cm Aleksandar Jones MD Work Phone: [facility] 12-28-2024 14:58-0400 Body mass index (BMI) [Ratio] 35.14 kg/m2 Aleksandar Jones MD Work Phone: [facility] 12-28-2024 14:58-0400 Body weight 84.37 kg Aleksandar Jones MD Work Phone: [facility] 12-28-2024 14:58-0400 Diastolic blood pressure 60 mm[Hg] Aleksandar Jones MD Work Phone: [facility] 12-28-2024 14:58-0400 Heart rate 113 /min Aleksandar Jones MD Work Phone: [facility] 12-28-2024 14:58-0400 SaO2% (BldA) [Mass fraction] 92 % Aleksandar Jones MD Work Phone: [facility] 12-28-2024 14:58-0400 Systolic blood pressure 126 mm[Hg] Aleksandar Jones MD Work Phone: [facility] 12-21-2024 12:29-0400 Body temperature 98.9 [degF] Dr. Aleksandar Jones MD Work Phone: [facility] 12-21-2024 12:29-0400 Diastolic blood pressure 99 mm[Hg] Dr. Aleksandar Jones MD Work Phone: 5(386)065-382968 [place] [address] 12-21-2024 12:29-0400 Heart rate 78 /min Dr. Aleksandar Jones MD Work Phone: 1(338)434-446768 [place] [address] 12-21-2024 12:29-0400 Respiratory rate 18 /min Dr. Aleksandar Jones MD Work Phone: 8(655)202-039603 [place] [address] 12-21-2024 12:29-0400 SaO2% (BldA) [Mass fraction] 99 % Dr. Aleksandar Jones MD Work Phone: 9(995)096-998903 [place] [address] 12-21-2024 12:29-0400 Systolic blood pressure 137 mm[Hg] Dr. Aleksandar Jones MD Work Phone: 8(525)478-073103 [place] [address] 12-21-2024 08:44-0400 Body height 154.[address] Aleksandar Jones MD Work Phone: 3(484)502-309103 [place] [address] 12-21-2024 08:44-0400 Body mass index (BMI) [Ratio] 35.7 kg/m2 Dr. Aleksandar Jones MD Work Phone: 3(146)267-513703 [place] [address] 12-21-2024 08:44-0400 Body weight 85.[address] Aleksandar Jones MD Work Phone: 9(102)674-850003 [place] [address] 12-11-2024 04:48-0500 Body mass index (BMI) [Ratio] 36.6 kg/m2 Dr. Aleksandar Jones MD Work Phone: 5(173)522-795003 [place] [address] 12-07-2024 09:58-0500 Diastolic blood pressure 72 mm[Hg] Radha Batista APRN.[employer] Work Phone: 0(750)357-930534 [place] [address] 12-07-2024 09:58-0500 Heart rate 102 /min Radha Batista EDGE BANDING OFF BEARER.[employer] Work Phone: [facility] 12-07-2024 09:58-0500 Respiratory rate 18 /min Radha Batista ED[employer]ING OFF [employer]ER.[employer] Work Phone: [facility] 12-07-2024 09:58-0500 SaO2% (BldA) [Mass fraction] 92 % Radha Batista ED[employer]ER.[employer] Work Phone: [facility] 12-07-2024 09:58-0500 Systolic blood pressure 108 mm[Hg] Radha Batista ED[employer] OFF [employer]ER.[employer] Work Phone: [facility] 11-13-2024 01:33-0500 Body mass index (BMI) [Ratio] 36.6 kg/m2 Dr. Aleksandar Jones MD Work Phone: 4(052)486-723303 [place] [address] 11-12-2024 13:40-0500 Body temperature 97.6 [degF] Dr. Aleksandar Jones MD Work Phone: 4(576)464-819003 [place] [address] 11-12-2024 13:40-0500 Diastolic blood pressure 75 mm[Hg] Dr. Aleksandar Jones MD Work Phone: 9(388)662-361803 [place] [address] 11-12-2024 13:40-0500 Heart rate 107 /min Dr. Aleksandar Jones MD Work Phone: 5(758)994-296803 [place] [address] 11-12-2024 13:40-0500 Respiratory rate 18 /min Dr. Aleksandar Jones MD Work Phone: 4(990)411-424303 [place] [address] 11-12-2024 13:40-0500 SaO2% (BldA) [Mass fraction] 93 % Dr. Aleksandar Jones MD Work Phone: 3(851)121-000303 [place] [address] 11-12-2024 13:40-0500 Systolic blood pressure 134 mm[Hg] Dr. Aleksandar Jones MD Work Phone: 9(793)882-350903 [place] [address] 11-12-2024 06:00-0500 Body mass index (BMI) [Ratio] 34.3 kg/m2 Dr. Aleksandar Jones MD Work Phone: 9(255)961-308103 [place] [address] 11-12-2024 06:00-0500 Body weight 82.[address] Aleksandar Jones MD Work Phone: 4(716)807-596803 [place] [address] 11-10-2024 07:56-0500 Inhaled oxygen flow rate 2 L/min Dr. Aleksandar Jones MD Work Phone: 7(577)674-488203 [place] [address] 11-09-2024 18:05-0500 Body temperature 99.19 [degF] Zaira Mancilla ED[employer]ER.[employer] Work Phone: [facility] 11-09-2024 18:05-0500 Heart rate 115 /min Zaira Mancilla [employer]ER.[employer] Work Phone: [facility] 11-09-2024 18:05-0500 Respiratory rate 32 /min Zaira Mancilla ED[employer]ER.[employer] Work Phone: [facility] 11-09-2024 18:05-0500 SaO2% (BldA) [Mass fraction] 94 % Zaira Mancilla [employer]ER.[employer] Work Phone: [facility] 11-09-2024 16:56-0500 Body mass index (BMI) [Ratio] 34.42 kg/m2 Zaira Mancilla [employer]ER.[employer] Work Phone: [facility] 11-09-2024 16:56-0500 Body weight 84.3 kg Zaira Mancilla [employer] Work Phone: [facility] 11-09-2024 16:56-0500 Diastolic blood pressure 80 mm[Hg] Zaira Mancilla [employer]ER.[employer] Work Phone: [facility] 11-09-2024 16:56-0500 Systolic blood pressure 122 mm[Hg] Zaira Mancilla [employer]ER.[employer] Work Phone: [facility] 11-02-2024 13:59-0500 Diastolic blood pressure 76 mm[Hg] Radha Haagen [employer] Work Phone: [facility] 11-02-2024 13:59-0500 Heart rate 110 /min Radha Haagen [employer] Work Phone: [facility] 11-02-2024 13:59-0500 Respiratory rate 16 /min Radha Haagen ED[employer] Work Phone: [facility] 11-02-2024 13:59-0500 SaO2% (BldA) [Mass fraction] 93 % Radha Haagen [employer] Work Phone: [facility] 11-02-2024 13:59-0500 Systolic blood pressure 128 mm[Hg] Radha Batista [employer]ER.[employer] Work Phone: 5(186)773-004534 [place] [address] 10-14-2024 18:59-0500 Body temperature 98.3 [degF] Dr. Aleksandar Jones MD Work Phone: 6(091)206-010268 [place] [address] 10-14-2024 18:59-0500 Diastolic blood pressure 85 mm[Hg] Dr. Aleksandar Jones MD Work Phone: 7(654)572-384703 [place] [address] 10-14-2024 18:59-0500 Heart rate 105 /min Dr. Aleksandar Jones MD Work Phone: 4(484)955-020503 [place] [address] 10-14-2024 18:59-0500 Respiratory rate 18 /min Dr. Aleksandar Jones MD Work Phone: 1(220)684-176203 [place] [address] 10-14-2024 18:59-0500 SaO2% (BldA) [Mass fraction] 94 % Dr. Aleksandar Jones MD Work Phone: 9(778)416-840503 [place] [address] 10-14-2024 18:59-0500 Systolic blood pressure 134 mm[Hg] Dr. Aleksandar Jones MD Work Phone: 7(898)928-591403 [place] [address] 10-13-2024 04:23-0500 Body mass index (BMI) [Ratio] 36.6 kg/m2 Dr. Aleksandar Jones MD Work Phone: 2(870)202-824868 [place] [address] 09-28-2024 12:55-0500 Body mass index (BMI) [Ratio] 34.63 kg/m2 Radha Batista [employer] Work Phone: [facility] 09-28-2024 12:55-0500 Body weight 84.82 kg Radha Batista [employer] Work Phone: [facility] 09-28-2024 12:55-0500 Diastolic blood pressure 80 mm[Hg] Radha Batista [employer] Work Phone: [facility] 09-28-2024 12:55-0500 Heart rate 99 /min Radha Batista [employer] Work Phone: 4(068)932-446734 [place] [address] 09-28-2024 12:55-0500 Respiratory rate 16 /min Radha Batista ED[employer]ER.[employer] Work Phone: [facility] 09-28-2024 12:55-0500 SaO2% (BldA) [Mass fraction] 97 % Radha Batista [employer] Work Phone: [facility] 09-28-2024 12:55-0500 Systolic blood pressure 124 mm[Hg] Radha Batista ED[employer]ER.[employer] Work Phone: [facility] 09-20-2024 12:51-0500 Body mass index (BMI) [Ratio] 34.52 kg/m2 Fuentes Renee MD Work Phone: [facility] 09-20-2024 12:51-0500 Body weight 84.55 kg Fuentes Renee MD Work Phone: [facility] 09-20-2024 12:51-0500 Diastolic blood pressure 79 mm[Hg] Fuentes Renee MD Work Phone: [facility] 09-20-2024 12:51-0500 Heart rate 104 /min Fuentes Renee MD Work Phone: [facility] 09-20-2024 12:51-0500 SaO2% (BldA) [Mass fraction] 92 % Fuentes Renee MD Work Phone: [facility] 09-20-2024 12:51-0500 Systolic blood pressure 126 mm[Hg] Fuentes Renee MD Work Phone: [facility] 09-11-2024 23:34-0500 Body mass index (BMI) [Ratio] 36.6 kg/m2 Dr. Aleksandar Jones MD Work Phone: [facility] 09-08-2024 09:06-0500 Diastolic blood pressure 60 mm[Hg] Radha Batista ED[employer]ER.[employer] Work Phone: [facility] 09-08-2024 09:06-0500 Heart rate 94 /min Radha Batista ED[employer] Work Phone: [facility] 09-08-2024 09:06-0500 Respiratory rate 16 /min Radha Batista [employer] Work Phone: [facility] 09-08-2024 09:06-0500 SaO2% (BldA) [Mass fraction] 94 % Radha Batista [employer] Work Phone: [facility] 09-08-2024 09:06-0500 Systolic blood pressure 122 mm[Hg] Radha Haagen [employer]ER.[employer] Work Phone: [facility] 08-24-2024 15:05-0500 Body mass index (BMI) [Ratio] 34.82 kg/m2 Shelia Suppan [employer]ER.[employer] Work Phone: [facility] 08-24-2024 15:05-0500 Body temperature 97.5 [degF] Shelia Suppan [employer]ER.[employer] Work Phone: [facility] 08-24-2024 15:05-0500 Body weight 85.28 kg Shelia Suppan [employer]ER.[employer] Work Phone: [facility] 08-24-2024 15:05-0500 Diastolic blood pressure 64 mm[Hg] Shelia Suppan [employer]ER.[employer] Work Phone: [facility] 08-24-2024 15:05-0500 Heart rate 109 /min Shelia Suppan ED[employer]ER.[employer] Work Phone: [facility] 08-24-2024 15:05-0500 Respiratory rate 24 /min Shelia Suppan [employer]ER.[employer] Work Phone: [facility] 08-24-2024 15:05-0500 SaO2% (BldA) [Mass fraction] 94 % Shelia Suppan [employer]ER.[employer] Work Phone: [facility] 08-24-2024 15:05-0500 Systolic blood pressure 132 mm[Hg] Shelia Suppan ED[employer]ER.[employer] Work Phone: [facility] 08-12-2024 20:47-0400 Body mass index (BMI) [Ratio] 36.6 kg/m2 Dr. Aleksandar Jones MD Work Phone: [facility] 07-23-2024 08:43-0400 Body mass index (BMI) [Ratio] 34.3 kg/m2 Adriano Menezes [employer] Work Phone: [facility] 07-23-2024 08:43-0400 Body temperature 97 [degF] Adriano Menezes [employer] Work Phone: [facility] 07-23-2024 08:43-0400 Body weight 84 kg Adriano Menezes [employer] Work Phone: [facility] 07-23-2024 08:43-0400 Diastolic blood pressure 67 mm[Hg] Adriano Menezes [employer]ER.[employer] Work Phone: [facility] 07-23-2024 08:43-0400 Heart rate 93 /min Adriano Menezes [employer] Work Phone: [facility] 07-23-2024 08:43-0400 Respiratory rate 22 /min Adriano Menezes [employer] Work Phone: [facility] 07-23-2024 08:43-0400 SaO2% (BldA) [Mass fraction] 96 % Adriano Menezes [employer] Work Phone: [facility] 07-23-2024 08:43-0400 Systolic blood pressure 100 mm[Hg] Adriano Menezes [employer] Work Phone: [facility] 07-06-2024 14:23-0400 Body mass index (BMI) [Ratio] 34.45 kg/m2 Radha Batista [employer] Work Phone: [facility] 07-06-2024 14:23-0400 Body weight 84.37 kg Radha Batista [employer] Work Phone: [facility] 07-06-2024 14:23-0400 Diastolic blood pressure 82 mm[Hg] Radha Batista [employer] Work Phone: [facility] 07-06-2024 14:23-0400 Heart rate 108 /min Radha Haagen [employer] Work Phone: [facility] 07-06-2024 14:23-0400 Respiratory rate 16 /min Radha Haagen [employer] Work Phone: [facility] 07-06-2024 14:23-0400 SaO2% (BldA) [Mass fraction] 91 % Radha Haagen [employer] Work Phone: [facility] 07-06-2024 14:23-0400 Systolic blood pressure 132 mm[Hg] Radha Haagen [employer] Work Phone: [facility] 04-14-2024 12:59-0400 Diastolic blood pressure 70 mm[Hg] Radha Haagen [employer]ER.[employer] Work Phone: [facility] 04-14-2024 12:59-0400 Heart rate 110 /min Radha Haagen [employer] Work Phone: [facility] 04-14-2024 12:59-0400 Respiratory rate 16 /min Radha Haagen [employer] Work Phone: [facility] 04-14-2024 12:59-0400 SaO2% (BldA) [Mass fraction] 93 % Radha Haagen [employer] Work Phone: [facility] 04-14-2024 12:59-0400 Systolic blood pressure 118 mm[Hg] Radha Haagen [employer] Work Phone: [facility] 03-30-2024 08:52-0400 Body height 156.5 cm Radha Haagen [employer]ER.STEAM AND [employer] Work Phone: [facility] 03-30-2024 08:52-0400 Body mass index (BMI) [Ratio] 33.71 kg/m2 Radha Haagen EDGE B[employer]ING OFF BEARER.STEAM AND [employer]SEMBLER Work Phone: [facility] 03-30-2024 08:52-0400 Body weight 82.56 kg Radha Haagen EDGE B[employer]ING OFF BEARER.STEAM AND [employer]SEM[employer]ER Work Phone: [facility] 03-30-2024 08:52-0400 Diastolic blood pressure 72 mm[Hg] Radha Haagen EDGE B[employer]ING OFF BEARER.STEAM AND [employer]SEMBLER Work Phone: [facility] 03-30-2024 08:52-0400 Heart rate 91 /min Radha Haagen EDGE B[employer]ING OFF BEARER.STEAM AND [employer]SEMBLER Work Phone: [facility] 03-30-2024 08:52-0400 Respiratory rate 16 /min Radha Haagen EDGE B[employer]ING OFF BEARER.STEAM AND [employer]SEMBLER Work Phone: [facility] 03-30-2024 08:52-0400 SaO2% (BldA) [Mass fraction] 96 % Radha Haagen EDGE [employer]ING OFF BEARER.STEAM AND [employer]SEM[employer]ER Work Phone: [facility] 03-30-2024 08:52-0400 Systolic blood pressure 108 mm[Hg] Radha Haagen EDGE B[employer]ING OFF BEARER.STEAM AND [employer]SEMBLER Work Phone: [facility] 03-19-2024 08:47-0400 Diastolic blood pressure 80 mm[Hg] Radha Haagen EDGE B[employer]ING OFF BEARER.STEAM AND [employer]SEMBLER Work Phone: [facility] 03-19-2024 08:47-0400 Heart rate 98 /min Radha Haagen EDGE B[employer]ING OFF BEARER.STEAM AND [employer]SEM[employer]ER Work Phone: [facility] 03-19-2024 08:47-0400 Respiratory rate 16 /min Radha Haagen EDGE B[employer]ING OFF BEARER.STEAM AND [employer]SEMBLER Work Phone: [facility] 03-19-2024 08:47-0400 SaO2% (BldA) [Mass fraction] 91 % Radha Haagen EDGE B[employer]ING OFF BEARER.STEAM AND [employer]SEMBLER Work Phone: [facility] 03-19-2024 08:47-0400 Systolic blood pressure 126 mm[Hg] Radha Haagen EDGE B[employer]ING OFF BEARER.STEAM AND [employer]SEMBLER Work Phone: [facility] 03-02-2024 08:50-0400 Body mass index (BMI) [Ratio] 34.01 kg/m2 Radha Haagen EDGE B[employer]ING OFF BEARER.STEAM AND [employer]SEMBLER Work Phone: [facility] 03-02-2024 08:50-0400 Body weight 81.65 kg Radha Haagen EDGE B[employer]ING OFF BEARER.STEAM AND [employer]SEMBLER Work Phone: [facility] 03-02-2024 08:50-0400 Diastolic blood pressure 70 mm[Hg] Radha Haagen EDGE B[employer]ING OFF BEARER.STEAM AND [employer]SEMBLER Work Phone: [facility] 03-02-2024 08:50-0400 Heart rate 93 /min Radha Haagen ED[employer] B[employer]ING OFF BEARER.STEAM AND [employer]SEM[employer]ER Work Phone: [facility] 03-02-2024 08:50-0400 Respiratory rate 16 /min Radha Haagen ED[employer] OFF BE[employer]ER.STEAM AND [employer]SEM[employer]ER Work Phone: [facility] 03-02-2024 08:50-0400 SaO2% (BldA) [Mass fraction] 92 % Radha Haagen ED[employer] B[employer] OFF BEARER.STEAM AND [employer]SEMBLER Work Phone: [facility] 03-02-2024 08:50-0400 Systolic blood pressure 108 mm[Hg] Radha Haagen ED[employer] B[employer]ING OFF BE[employer]ER.STEAM AND [employer]SEM[employer]ER Work Phone: [facility] 02-05-2024 08:00-0400 Diastolic blood pressure 72 mm[Hg] Jaci Kashuba STRESS ANALYST Work Phone: [facility] 02-05-2024 08:00-0400 Heart rate 95 /min Jaci Kashuba STRESS ANALYST Work Phone: [facility] 02-05-2024 08:00-0400 SaO2% (BldA) [Mass fraction] 94 % Jaci Kashuba STRESS ANALYST Work Phone: [facility] Comment on above: increased to 97 with instruction for vicente p breathing 02-05-2024 08:00-0400 Systolic blood pressure 113 mm[Hg] Jaci Kashuba STRESS ANALYST Work Phone: [facility] 01-21-2024 11:00-0400 Diastolic blood pressure 78 mm[Hg] Long Golias PT Work Phone: [facility] 01-21-2024 11:00-0400 Heart rate 98 /min Long Golias PT Work Phone: [facility] 01-21-2024 11:00-0400 Systolic blood pressure 118 mm[Hg] Long Golias PT Work Phone: [facility] 01-13-2024 09:07-0400 Body weight 82.56 kg Radha Haagen ED[employer] B[employer] OFF BE[employer]ER.STEAM AND [employer]SEMBLER Work Phone: [facility] 01-13-2024 09:07-0400 Diastolic blood pressure 80 mm[Hg] Radha Dacostaagen EDGE B[employer]ING OFF BEARER.STEAM AND [employer] ASSEMBLER Work Phone: [facility] 01-13-2024 09:07-0400 Heart rate 89 /min Radha Haagen EDGE B[employer]ING OFF BEARER.STEAM AND [employer] ASSEMBLER Work Phone: [facility] 01-13-2024 09:07-0400 Respiratory rate 16 /min Radha Dacostaagen EDGE B[employer]ING OFF BEARER.STEAM AND [employer] ASSEMBLER Work Phone: [facility] 01-13-2024 09:07-0400 SaO2% (BldA) [Mass fraction] 97 % Radha Batista EDGE B[employer]ING OFF BE[employer]ER.STEAM AND [employer] ASSEMBLER Work Phone: [facility] 01-13-2024 09:07-0400 Systolic blood pressure 110 mm[Hg] Radha Batista EDGE B[employer]ING OFF BEARER.STEAM AND [employer] ASSEMBLER Work Phone: [facility] 01-10-2024 22:32-0400 Body mass index (BMI) [Ratio] 36.6 kg/m2 [facility] 12-13-2023 23:59-0500 Body temperature 98 [degF] Dr. Aleksandar Jones Work Phone: [facility] 12-13-2023 23:59-0500 Diastolic blood pressure 68 mm[Hg] Dr. Aleksandar Jones Work Phone: [facility] 12-13-2023 23:59-0500 Heart rate 88 /min Dr. Aleksandar Jones Work Phone: [facility] 12-13-2023 23:59-0500 Respiratory rate 16 /min Dr. Aleksandar Jones Work Phone: [facility] 12-13-2023 23:59-0500 SaO2% (BldA) [Mass fraction] 97 % Dr. Aleksandar Jones Work Phone: [facility] 12-13-2023 23:59-0500 Systolic blood pressure 112 mm[Hg] Dr. Aleksandar Jones Work Phone: [facility] 12-13-2023 18:09-0500 Body height 154.[address] Aleksandar Jones Work Phone: [facility] 12-13-2023 18:09-0500 Body mass index (BMI) [Ratio] 33.4 kg/m2 Dr. Aleksandar Jones Work Phone: [facility] 12-13-2023 18:09-0500 Body weight 80.[address] Aleksandar Jones Work Phone: [facility] 12-11-2023 23:05-0500 Body mass index (BMI) [Ratio] 36.6 kg/m2 [facility] 11-12-2023 22:38-0500 Body mass index (BMI) [Ratio] 36.6 kg/m2 Dr. Aleksandar Jones Work Phone: [facility] 10-12-2023 20:50-0500 Body mass index (BMI) [Ratio] 36.6 kg/m2 Dr. Aleksandar Jones Work Phone: [facility] 09-22-2023 15:48-0500 Body weight 78.93 kg Fuentes Renee MD Work Phone: [facility] 09-22-2023 15:48-0500 Diastolic blood pressure 76 mm[Hg] Fuentes Renee MD Work Phone: [facility] 09-22-2023 15:48-0500 Heart rate 114 /min Fuentes Renee MD Work Phone: [facility] 09-22-2023 15:48-0500 SaO2% (BldA) [Mass fraction] 96 % Fuentes Renee MD Work Phone: [facility] 09-22-2023 15:48-0500 Systolic blood pressure 118 mm[Hg] Fuentes Renee MD Work Phone: [facility] 09-12-2023 03:19-0500 Body mass index (BMI) [Ratio] 36.6 kg/m2 Dr. 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 08-29-2023 15:12-0500 Body weight 78.93 kg Alma [place] EDGE B[employer]ING OFF BEARER.STEAM AND [employer] ASSEMBLER Work Phone: [facility] 08-29-2023 15:12-0500 Diastolic blood pressure 72 mm[Hg] Alma Rox ED[employer] B[employer] OFF BE[employer]ER.STEAM AND [employer] ASSEMBLER Work Phone: 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 08-16-2023 13:15-0400 Body temperature 98 [degF] Dr. Aleksandar Jones Work Phone: 7(906)718-617268 [place] [address] 08-16-2023 13:15-0400 Diastolic blood pressure 73 mm[Hg] Dr. Aleksandar Jones Work Phone: 4(567)644-372068 [place] [address] 08-16-2023 13:15-0400 Heart rate 96 /min Dr. Aleksandar Jones Work Phone: 8(285)743-318168 [place] [address] 08-16-2023 13:15-0400 Respiratory rate 16 /min Dr. Aleksandar Jones Work Phone: [facility] 08-16-2023 13:15-0400 SaO2% (BldA) [Mass fraction] 94 % Dr. Aleksandar Jones Work Phone: [facility] 08-16-2023 13:15-0400 Systolic blood pressure 111 mm[Hg] Dr. Aleksandar Jones Work Phone: 4(734)504-116368 [place] [address] 08-16-2023 12:44-0400 Inhaled oxygen flow rate 0 L/min Dr. Aleksandar Jones Work Phone: 5(195)317-476368 [place] [address] 08-16-2023 04:16-0400 Body mass index (BMI) [Ratio] 31.6 kg/m2 Dr. Aleksandar Jones Work Phone: 4(381)026-020003 [place] [address] 08-16-2023 04:16-0400 Body weight [address] Aleksandar Jones Work Phone: 3(848)303-011403 [place] [address] 08-15-2023 12:03-0400 Body height 154.[address] Aleksandar Jones Work Phone: 5(782)505-114603 [place] [address] 08-14-2023 23:25-0400 Diastolic blood pressure 77 mm[Hg] Dr. Aleksandar Jones Work Phone: 3(821)659-674603 [place] [address] 08-14-2023 23:25-0400 Heart rate 97 /min Dr. Aleksandar Jones Work Phone: 9(429)530-951303 [place] [address] 08-14-2023 23:25-0400 Respiratory rate 26 /min Dr. Aleksandar Jones Work Phone: 7(204)914-890503 [place] [address] 08-14-2023 23:25-0400 SaO2% (BldA) [Mass fraction] 94 % Dr. Aleksandar Jones Work Phone: 5(168)921-964303 [place] [address] 08-14-2023 23:25-0400 Systolic blood pressure 110 mm[Hg] Dr. Aleksandar Jones Work Phone: 4(892)218-529103 [place] [address] 08-14-2023 22:19-0400 Inhaled oxygen flow rate 2 L/min Dr. Aleksandar Jones Work Phone: 2(505)433-257903 [place] [address] 08-14-2023 17:06-0400 Body temperature 97.4 [degF] Dr. Aleksandar Jones Work Phone: 4(977)233-537903 [place] [address] 08-14-2023 17:02-0400 Body height 154.[address] Aleksandar Jones Work Phone: 7(377)404-379103 [place] [address] 08-14-2023 17:02-0400 Body mass index (BMI) [Ratio] 33.5 kg/m2 Dr. Aleksandar Jones Work Phone: 3(951)800-908403 [place] [address] 08-14-2023 17:02-0400 Body weight 80.[address] Aleksandar Jones Work Phone: 5(202)741-514903 [place] [address] 08-12-2023 22:56-0400 Body mass index (BMI) [Ratio] 36.6 kg/m2 Dr. Aleksandar Jones Work Phone: [facility] 07-13-2023 02:43-0400 Body mass index (BMI) [Ratio] 36.6 kg/m2 Dr. Aleksandar Jones Work Phone: [facility] 06-12-2023 22:53-0400 Body mass index (BMI) [Ratio] 36.6 kg/m2 [facility] 05-13-2023 00:41-0400 Body mass index (BMI) [Ratio] 36.6 kg/m2 [facility] 04-29-2023 14:31-0400 Body weight 78.02 kg Radha Batista ED[employer]ER.STEAM AND [employer]UR[employer] ASSEMBLER Work Phone: [facility] 04-29-2023 14:31-0400 Diastolic blood pressure 82 mm[Hg] Radha Batista ED[employer] B[employer] OFF BE[employer]ER.STEAM AND [employer]UR[employer]SEMBLER Work Phone: [facility] 04-29-2023 14:31-0400 Heart rate 109 /min Radha Batista ED[employer] B[employer]ING OFF BE[employer]ER.STEAM AND [employer]UR[employer] ASSEMBLER Work Phone: [facility] 04-29-2023 14:31-0400 Respiratory rate 16 /min Radha Batista ED[employer] B[employer] OFF BE[employer]ER.STEAM AND [employer]UR[employer] ASSEMBLER Work Phone: [facility] 04-29-2023 14:31-0400 SaO2% (BldA) [Mass fraction] 92 % Radha Batista ED[employer] B[employer] OFF BE[employer]ER.STEAM AND [employer]SEMBLER Work Phone: [facility] 04-29-2023 14:31-0400 Systolic blood pressure 124 mm[Hg] Radha Batista EDGE B[employer] OFF BE[employer]ER.STEAM AND [employer]UR[employer] ASSEMBLER Work Phone: [facility] 04-11-2023 22:19-0400 Body mass index (BMI) [Ratio] 36.6 kg/m2 [facility] 03-13-2023 09:37-0400 Body mass index (BMI) [Ratio] 36.6 kg/m2 [facility] 02-09-2023 01:19-0400 Body mass index (BMI) [Ratio] 36.6 kg/m2 [facility] 01-11-2023 00:24-0400 Body mass index (BMI) [Ratio] 36.6 kg/m2 [facility] 12-10-2022 22:30-0500 Body mass index (BMI) [Ratio] 36.6 kg/m2 [facility] 11-13-2022 08:16-0500 Body mass index (BMI) [Ratio] 36.6 kg/m2 [facility] 10-13-2022 03:52-0500 Body mass index (BMI) [Ratio] 36.6 kg/m2 [facility] 09-11-2022 23:10-0500 Body mass index (BMI) [Ratio] 36.6 kg/m2 [facility] 08-28-2022 13:53-0500 Body weight 83.01 kg Radha Batista ED[employer]ER.STEAM AND [employer]SEM[employer]ER Work Phone: [facility] 08-28-2022 13:53-0500 Diastolic blood pressure 72 mm[Hg] Radha Batista ED[employer] B[employer] OFF BE[employer]ER.STEAM AND [employer] ASSEM[employer]ER Work Phone: [facility] 08-28-2022 13:53-0500 Heart rate 98 /min Radha Batista ED[employer] B[employer]ING OFF [employer]ER.STEAM AND [employer] ASSEMBLER Work Phone: [facility] 08-28-2022 13:53-0500 Respiratory rate 18 /min Radha Batista EDGE B[employer]ING OFF BE[employer]ER.STEAM AND [employer] ASSEM[employer]ER Work Phone: [facility] 08-28-2022 13:53-0500 SaO2% (BldA) [Mass fraction] 96 % Radha Batista ED[employer] B[employer] OFF BE[employer]ER.STEAM AND [employer] ASSEMBLER Work Phone: [facility] 08-28-2022 13:53-0500 Systolic blood pressure 124 mm[Hg] Radha Batista EDGE B[employer]ING OFF BE[employer]ER.STEAM AND [employer] ASSEM[employer]ER Work Phone: [facility] 08-13-2022 10:20-0400 Body mass index (BMI) [Ratio] 36.6 kg/m2 [facility] 08-08-2022 13:42-0400 Body temperature 97.39 [degF] Zaira Mancilla ED[employer] B[employer]ING OFF BE[employer]ER.STEAM AND [employer] ASSEMBLER Work Phone: [facility] 08-08-2022 13:42-0400 Body weight 82.83 kg Zaira Mancilla EDGE B[employer]ING OFF BEARER.STEAM AND [employer] ASSEMBLER Work Phone: [facility] 08-08-2022 13:42-0400 Diastolic blood pressure 76 mm[Hg] Zaira Mancilla EDGE B[employer]ING OFF BEARER.STEAM AND [employer] ASSEMBLER Work Phone: [facility] 08-08-2022 13:42-0400 Heart rate 108 /min Zaira Mancilla EDGE B[employer]ING OFF BEARER.STEAM AND [employer]UR[employer] ASSEMBLER Work Phone: [facility] 08-08-2022 13:42-0400 Respiratory rate 16 /min Zaira Mancilla EDGE B[employer]ING OFF BEARER.STEAM AND [employer] ASSEM[employer]ER Work Phone: [facility] 08-08-2022 13:42-0400 SaO2% (BldA) [Mass fraction] 97 % Zaira Mancilla EDGE B[employer]ING OFF BEARER.STEAM AND [employer]UR[employer] ASSEMBLER Work Phone: [facility] 08-08-2022 13:42-0400 Systolic blood pressure 130 mm[Hg] Zaira Mancilla EDGE B[employer]ING OFF BEARER.STEAM AND [employer] ASSEMBLER Work Phone: [facility] 07-12-2022 21:34-0400 Body mass index (BMI) [Ratio] 36.6 kg/m2 [facility] 07-05-2022 13:00-0400 Body temperature 97 [degF] Zaira Mancilla EDGE B[employer]ING OFF BEARER.STEAM AND [employer]UR[employer] ASSEMBLER Work Phone: [facility] 07-05-2022 13:00-0400 Body weight 83.19 kg Zaira Mancilla EDGE B[employer]ING OFF BEARER.STEAM AND [employer]UR[employer] ASSEMBLER Work Phone: [facility] 07-05-2022 13:00-0400 Diastolic blood pressure 74 mm[Hg] Zaira Mancilla EDGE B[employer]ING OFF BEARER.STEAM AND G[employer]UR[employer] ASSEMBLER Work Phone: [facility] 07-05-2022 13:00-0400 Heart rate 112 /min Zaira Mancilla EDGE B[employer]ING OFF BEARER.STEAM AND G[employer]UR[employer] ASSEMBLER Work Phone: [facility] 07-05-2022 13:00-0400 Respiratory rate 18 /min Zaira Mancilla EDGE B[employer]ING OFF BEARER.STEAM AND [employer]UR[employer] ASSEMBLER Work Phone: [facility] 07-05-2022 13:00-0400 SaO2% (BldA) [Mass fraction] 97 % Zaira Mancilla EDGE B[employer]ING OFF BEARER.STEAM AND [employer]UR[employer] ASSEMBLER Work Phone: [facility] 07-05-2022 13:00-0400 Systolic blood pressure 122 mm[Hg] Zaira Mancilla EDGE B[employer]ING OFF BEARER.STEAM AND [employer]UR[employer] ASSEMBLER Work Phone: [facility] 06-12-2022 23:03-0400 Body mass index (BMI) [Ratio] 36.6 kg/m2 [facility] Work Phone: 06-06-2022 05:56-0400 Diastolic blood pressure 57 mm[Hg] [facility] Work Phone: 06-06-2022 05:56-0400 Heart rate 86 /min [facility] Work Phone: 06-06-2022 05:56-0400 Respiratory rate 18 /min [facility] Work Phone: 06-06-2022 05:56-0400 SaO2% (BldA) [Mass fraction] 95 % [facility] Work Phone: 06-06-2022 05:56-0400 Systolic blood pressure 111 mm[Hg] [facility] Work Phone: 06-05-2022 21:07-0400 Body temperature 96.7 [degF] [facility] Work Phone: 06-05-2022 15:48-0400 Body height 154.94 cm [facility] Work Phone: 06-05-2022 15:48-0400 Body mass index (BMI) [Ratio] 34.8 kg/m2 [facility] Work Phone: 06-05-2022 15:48-0400 Body weight 83.6 kg [facility] Work Phone: 05-12-2022 02:24-0400 Body mass index (BMI) [Ratio] 36.6 kg/m2 [facility] Work Phone: 04-12-2022 07:02-0400 Body mass index (BMI) [Ratio] 36.6 kg/m2 [facility] Work Phone: 04-10-2022 06:00-0400 Body temperature 98.9 [degF] [facility] Work Phone: 04-10-2022 06:00-0400 Diastolic blood pressure 76 mm[Hg] [facility] Work Phone: 04-10-2022 06:00-0400 Heart rate 114 /min [facility] Work Phone: 04-10-2022 06:00-0400 Respiratory rate 16 /min [facility] Work Phone: 04-10-2022 06:00-0400 SaO2% (BldA) [Mass fraction] 94 % [facility] Work Phone: 04-10-2022 06:00-0400 Systolic blood pressure 116 mm[Hg] [facility] Work Phone: 04-09-2022 15:46-0400 Body height 154.94 cm [facility] Work Phone: 04-09-2022 15:46-0400 Body mass index (BMI) [Ratio] 35.6 kg/m2 [facility] Work Phone: 04-09-2022 15:46-0400 Body weight 85.7 kg [facility] Work Phone: 03-27-2022 14:06-0400 Diastolic blood pressure 82 mm[Hg] Radha Batista ED[employer] B[employer]ING OFF BE[employer]ER.STEAM AND [employer]UR[employer] ASSEMBLER Work Phone: [facility] 03-27-2022 14:06-0400 Heart rate 103 /min Radha Haagen ED[employer] B[employer]ING OFF BE[employer]ER.STEAM AND [employer]UR[employer] ASSEMBLER Work Phone: [facility] 03-27-2022 14:06-0400 Respiratory rate 18 /min Radha Praneethagen EDGE B[employer]ING OFF BEARER.STEAM AND [employer]UR[employer] ASSEMBLER Work Phone: [facility] 03-27-2022 14:06-0400 SaO2% (BldA) [Mass fraction] 98 % Radha Dacostaagen EDGE B[employer] OFF BEARER.STEAM AND [employer]UR[employer] ASSEMBLER Work Phone: [facility] 03-27-2022 14:06-0400 Systolic blood pressure 120 mm[Hg] Radha Haagen EDGE B[employer]ING OFF BEARER.STEAM AND [employer]UR[employer]INE ASSEMBLER Work Phone: [facility] 03-12-2022 20:43-0400 Body mass index (BMI) [Ratio] 36.6 kg/m2 [facility] Work Phone: 02-10-2022 03:23-0400 Body mass index (BMI) [Ratio] 36.6 kg/m2 [facility] Work Phone: 01-30-2022 13:12-0400 Body weight 85.64 kg Radha Haagen ED[employer] B[employer] OFF BE[employer]ER.STEAM AND [employer]UR[employer] ASSEMBLER Work Phone: [facility] 01-30-2022 13:12-0400 Diastolic blood pressure 78 mm[Hg] Radha Haagen EDGE B[employer]ING OFF BEARER.STEAM AND [employer]UR[employer]INE ASSEMBLER Work Phone: [facility] 01-30-2022 13:12-0400 Heart rate 106 /min Radha Haagen EDGE B[employer]ING OFF BE[employer]ER.STEAM AND [employer]UR[employer]INE ASSEMBLER Work Phone: [facility] 01-30-2022 13:12-0400 Respiratory rate 16 /min Radha Haagen EDGE B[employer]ING OFF BEARER.STEAM AND [employer]UR[employer]INE ASSEMBLER Work Phone: [facility] 01-30-2022 13:12-0400 Systolic blood pressure 112 mm[Hg] Radha Haagen EDGE B[employer] OFF BE[employer]ER.STEAM AND [employer]UR[employer] ASSEMBLER Work Phone: [facility] 01-14-2022 15:12-0400 Body weight 84.82 kg Aleksandar Jones MD Work Phone: [facility] 01-14-2022 15:12-0400 Diastolic blood pressure 68 mm[Hg] Aleksandar Jones MD Work Phone: [facility] 01-14-2022 15:12-0400 Heart rate 118 /min Aleksandar Jones MD Work Phone: [facility] 01-14-2022 15:12-0400 SaO2% (BldA) [Mass fraction] 95 % Aleksandar Jones MD Work Phone: [facility] 01-14-2022 15:12-0400 Systolic blood pressure 102 mm[Hg] Aleksandar Jones MD Work Phone: [facility] 01-11-2022 02:25-0400 Body mass index (BMI) [Ratio] 36.6 kg/m2 [facility] Work Phone: 12-11-2021 09:41-0500 Body mass index (BMI) [Ratio] 36.6 kg/m2 [facility] Work Phone: 12-11-2021 08:41-0500 Body mass index (BMI) [Ratio] 36.6 kg/m2 [facility] Work Phone: 11-13-2021 00:10-0500 Body mass index (BMI) [Ratio] 36.6 kg/m2 [facility] Work Phone: 10-14-2021 03:14-0500 Body mass index (BMI) [Ratio] 36.6 kg/m2 [facility] Work Phone: 09-12-2021 02:21-0500 Body mass index (BMI) [Ratio] 36.6 kg/m2 [facility] Work Phone: Encounters Encounter Date Encounter Type Care Provider Facility Start: 07-19-2025 ambulatory Aleksandar Oneal ty:[facility] Start: 07-12-2025 End: 07-12-2025 Patient encounter procedure Joselyn SCHAEFFER -[facility] Work Phone: Start: 07-12-2025 End: 07-12-[address] Aleksandar Jones MD Work Phone: -[facility] Start: 06-28-2025 End: 06-28-2025 ambulatory ALEKSANDAR JONES Facility:[facility] Start: 06-28-2025 End: 06-28-2025 Patient encounter procedure Aleksandar Jones MD Work Phone: [facility] Comment on above: GERD without esophag itis (Primary Dx); Epigastric pain; Venous insufficiency; Pure hypercholesterolemia; Water intoxication; Hyponatremia; Type 2 diabetes mellitus with diabetic nephropathy, with long-term current use of insulin (HCC); Schizophreniform disorder, chronic condition (HCC); LIDA (obstructive sleep apnea); SVT (supraventricular tachycardia) (HCC); Edema, unspecified type; Tachycardia; Acute diastolic CHF (congestive heart failure) (HCC); Obesity, Class II, BMI 35-39.9; Fatigue, unspecified type; Encounter for immunization; Medication monitoring encounter Start: 06-28-2025 End: 06-28-2025 ambulatory ALEKSANDAR JONES Facility:[facility] Start: 06-23-2025 ambulatory Basiljavier Velasquez Facility :[facility] Start: 06-23-2025 Non-patient / Non-visit Basil Frie mo DO -[facility] Start: 06-23-2025 End: 06-23-2025 Admission to same day surgery center Basiljavier Velasquez DO -Endoscopy Work Phone: Start: 06-23-2025 End: 06-23-[address] Aleksandar Jones MD Work Phone: -Endoscopy Start: 06-21-2025 Registered Referred Aleksandar Jones -[facility] Work Phone: Start: 06-21-2025 End: 06-21-2025 ambulatory Aleksandar MADRID Facility:[facility] Start: 06-03-2025 End: 06-03-2025 Telephone encounter Aleksandar Jones MD Work Phone: [facility] Comment on above: Results Start: 05-24-2025 ambulatory [facility] Facility:[facility] Start: 05-24-2025 Registered Referred [facility] -[facility] Joycelyn Work Phone: Start: 05-19-2025 End: 06-08-2025 Telephone encounter Fuentes Renee MD Work Phone: Cardiology Comment on above: Cardiac Clearance Start: 05-11-2025 End: 05-11-2025 Telephone encounter Aleksandar Jones MD Work Phone: Family [facility] [place] Comment on above: Statin Recommendatio n Start: 05-10-2025 End: 05-10-2025 Patient encounter procedure Joselyn SCHAEFFER -[facility] Work Phone: Start: 05-10-2025 End: 05-10-[address] Aleksandar Jones MD Work Phone: -[facility] Start: 05-06-2025 End: 05-06-[address] Koby Ramirez MD -Cat Scan [facility] Work Phone: Start: 05-06-2025 End: 05-06-[address] Aleksandar Jones MD Work Phone: -[facility] Scan [facility] Start: 04-26-2025 Registered Referred [facility] -[facility] Work Phone: Start: 04-26-2025 End: 04-26-2025 ambulatory [facility] Facility:[facility] Start: 04-11-2025 Registered Referred [facility] -[facility] Work Phone: Start: 04-11-2025 End: 04-11-2025 ambulatory [facility] Facility:[facility] Start: 04-04-2025 End: 04-04-2025 Patient encounter procedure Fuentes Renee MD Work Phone: Cardiology Comment on above: Primary hypertension (Primary Dx); SVT (supraventricular tachycardia) (HCC) Start: 04-04-2025 End: 04-04-2025 ambulatory [facility] Facility:[facility] Start: 03-29-2025 End: 04-05-2025 Follow-up encounter Aleksandar Jones MD Work Phone: [facility] Start: 03-29-2025 End: 03-29-2025 Subsequent hospital visit by physician [facility] Work Phone: Radiology Comment on above: Cough, unspecified t ype [R05.9] Start: 03-29-2025 End: 03-29-2025 ambulatory [facility] Facility:[facility] Start: 03-29-2025 End: 03-29-2025 Patient encounter procedure Aleksandar Jones MD Work Phone: [facility] Comment on above: Hyponatremia (Primar y [...] heart failure) Start: 03-29-2025 End: 03-29-2025 ambulatory ALEKSANDAR JONES Facility:[facility] Start: 03-28-2025 End: 03-28-[address] Aleksandar Jones MD Work Phone: On [facility] Of [facility] Start: 03-28-2025 End: 03-28-2025 Departed Referred [facility] Work Phone: Start: 03-28-2025 Registered Referred Aleksandar Jones [facility] Work Phone: Start: 03-28-2025 End: 03-28-2025 ambulatory Aleksandar Dayo [facility] Facility:[facility] Start: 03-14-2025 End: 03-14-2025 Telephone encounter Aleksandar Jones MD Work Phone: [facility] Comment on above: Letter Start: 03-01-2025 End: 03-01-[address] Aleksandar Jones MD Work Phone: [facility] Work Phone: Start: 03-01-2025 End: 03-01-2025 Departed Referred [facility] Work Phone: Start: 03-01-2025 End: 03-01-2025 ambulatory [facility] Facility:[facility] Start: 02-25-2025 End: 03-16-2025 Telephone encounter Aleksandar Jones MD Work Phone: [facility] Comment on above: Patient Update Start: 02-18-2025 End: 02-18-2025 Refill Aleksandar Jones MD Work Phone: [facility] Comment on above: Refill Request Start: 02-10-2025 End: 02-11-2025 Telephone encounter Aleksandar Jones MD Work Phone: [facility] Comment on above: Forms Start: 02-10-[address] [facility] Facility: [facility] Start: 02-02-2025 End: 02-09-[address] Lorraine Springer MD -Laboratory Work Phone: Start: 02-02-2025 End: 02-09-[address] [facility] Facility:[facility] Start: 01-31-2025 End: 02-08-2025 Telephone encounter Aleksandar Jones MD Work Phone: [facility] Start: 01-27-2025 End: 01-28-2025 Telephone encounter Aleksandar Jones MD Work Phone: [facility] Comment on above: Forms Start: 01-25-2025 End: 01-25-2025 Refill Aleksandar Jones MD Work Phone: [facility] Comment on above: Refill Request Start: 01-21-2025 End: 01-24-2025 Telephone encounter Aleksandar Jones MD Work Phone: [facility] Comment on above: Forms Start: 01-20-2025 End: 03-22-2025 Follow-up encounter Aleksandar Jones MD Work Phone: Pulmonology [facility] Start: 01-19-2025 End: 01-19-2025 ambulatory ALEKSANDAR JONES Facility:[facility] Start: 01-19-2025 End: 01-19-2025 Subsequent hospital visit by physician Screen Mammo Counts Include 234 Beds At [facility] Comment on above: Encounter for screen ing mammogram for breast cancer [Z12.31] Start: 01-18-2025 End: 03-20-2025 Follow-up encounter Aleksandar Jones MD Work Phone: [facility] Start: 01-18-2025 End: 01-18-2025 ambulatory ALEKSANDAR JONES Facility:[facility] Start: 01-18-2025 End: 01-18-2025 Subsequent hospital visit by physician [facility] 2 Work Phone: Radiology Comment on above: Elevated liver enzym es [R74.8] Start: 01-14-2025 End: 01-14-2025 Follow-up encounter Radha Batista APRN.CNP Work Phone: [facility] [place] Start: 01-12-2025 End: 03-14-2025 Follow-up encounter Aleksandar Jones MD Work Phone: [facility] [place] Start: 01-12-2025 End: 01-12-2025 Telephone encounter Aleksandar Jones MD Work Phone: [facility] Comment on above: Orders Start: 01-12-2025 End: 01-12-2025 ambulatory RADHA BATISTA Facility:[facility] Start: 01-12-2025 End: 01-12-2025 Patient encounter procedure Aleksandar Jones MD Work Phone: [facility] [place] Comment on above: Water intoxication ( Primary Dx); Vitamin D deficiency; Hepatitis B core antibody positive; Hyponatremia; Acute diastolic CHF (congestive heart failure) (HCC); Liver function test abnormality; Type 2 diabetes mellitus with diabetic nephropathy, with long-term current use of insulin (HCC) Start: 01-11-2025 End: 01-11-2025 ambulatory ALEKSANDAR JONES Facility:[facility] Start: 01-05-2025 End: 01-05-2025 Patient encounter procedure Jey Brown MD Work Phone: Res[facility] Start: 01-05-2025 End: 01-12-2025 Telephone encounter Aleksnadar Jones MD Work Phone: [facility] Comment on above: Patient Update Start: 01-04-2025 End: 01-04-[address] Lorraine Springer MD -Laboratory Work Phone: Start: 01-04-2025 End: 01-04-[address] Aleksandar Jones MD Work Phone: [facility] Work Phone: Start: 01-04-2025 End: 01-05-2025 Follow-up encounter Radha Batista APRN.CNP Work Phone: [facility] Start: 01-04-2025 End: 01-12-2025 Telephone encounter Aleksandar Jones MD Work Phone: [facility] Comment on above: Results Start: 01-03-2025 End: 01-06-2025 Refill Aleksandar Jones MD Work Phone: [facility] Comment on above: Refill Request Start: 12-31-2024 End: 12-31-2024 Follow-up encounter Radha Batista APRN.CNP Work Phone: [facility] Start: 12-30-2024 End: 12-31-2024 Refill Aleksandar Jones MD Work Phone: [facility] Comment on above: Refill Request Results Start: 12-29-2024 End: 02-28-2025 Follow-up encounter Aleksandar Jones MD Work Phone: [facility] Start: 12-28-2024 End: 12-28-2024 ambulatory [facility] Facility:[facility] Start: 12-28-2024 End: 12-28-2024 Patient encounter procedure Aleksandar Jones MD Work Phone: [facility] Comment on above: COVID (Primary Dx); Acute diastolic CHF (congestive heart failure) ([facility]); Pure hypercholesterolemia; SVT (supraventricular tachycardia) ([facility]); Chronic obstructive pulmonary disease, unspecified COPD type ([facility]); LIDA (obstructive sleep apnea); Gastritis without bleeding, [...] 12-10-2024 Refill Aleksandar Jones MD Work Phone: [facility] [place] Comment on above: Refill Request Start: 12-07-2024 End: 12-08-2024 Follow-up encounter Radha Batista APRN.[employer] ASSEMBLER Work Phone: [facility] [place] Start: 12-07-2024 End: 12-07-2024 Subsequent hospital visit by physician Xr Counts Include 234 Beds At [facility] [place] Work Phone: Radiology Comment on above: Bacterial pneumonia [J15.9] Start: 12-07-2024 End: 12-07-2024 ambulatory [facility] Facility:[facility] Start: 12-07-2024 End: 12-07-2024 Office outpatient visit 25 minutes Radha Batista APRN.[employer]UR[employer]INE ASSEMBLER Work Phone: [facility] [place] Comment on above: Leg pain, bilateral (Primary Dx); Bacterial pneumonia Start: 12-03-2024 End: 02-02-2025 Follow-up encounter Radha Batista APRN.[employer] TURBINE ASSEMBLER Work Phone: [facility] [place] Start: 12-03-2024 End: 12-03-2024 Telephone encounter Radha Batitsa APRN.[employer]UR[employer] ASSEMBLER Work Phone: [facility] [place] Comment on above: Results Start: 12-01-2024 End: 12-01-2024 ambulatory [facility] Facility:[facility] Start: 11-29-2024 End: 11-29-2024 Telephone encounter Aleksandar Jones MD Work Phone: [facility] [place] Comment on above: Appointment Start: 11-25-2024 End: 11-25-2024 Refill Aleksandar Jones MD Work Phone: [facility] [place] Comment on above: Refill Request Start: 2024 End: 2024 Refill Aleksandar Jones MD Work Phone: [address] [place] [address] Comment on above: Refill Request Start: 11-12-2024 Non-patient / Non-visit Dr. Neela Lebron [facility] Work Phone: Start: 11-11-2024 Non-patient / Non-visit Dr. Neela Lebron [facility] Work Phone: Start: 11-10-2024 Non-patient / Non-visit Dr. Neela Lebron [facility] Work Phone: Start: 11-10-2024 End: 11-10-2024 Telephone encounter Aleksandar Jones MD Work Phone: Internal Medicine [place] Start: 11-09-2024 End: 11-12-2024 Evaluation and management of inpatient Dr. Ana Lilia Lebron [facility] Work Phone: Start: 11-09-2024 End: 11-09-2024 Subsequent hospital visit by physician Xr Counts Include 234 Beds At [facility] [place] Work Phone: Radiology Comment on above: Acute cough [R05.1] Start: 11-09-2024 End: 11-09-2024 ambulatory ALEKSANDAR JONES Facility:[facility] Start: 11-09-2024 End: 11-09-2024 Patient encounter procedure Zaira Mancilla APRN.[employer] ASSEMBLER Work Phone: [facility] Comment on above: Pneumonia of right l lisbeth due to infectious organism, unspecified part of lung (Primary Dx); Fever, unspecified fever cause; Acute cough; URI, acute Start: 11-05-2024 End: 11-09-2024 Telephone encounter Radha Batista APRN.[employer]UR[employer] ASSEMBLER Work Phone: [facility] Comment on above: Results Start: 11-02-2024 End: 11-02-2024 Subsequent hospital visit by physician Xr [facility] Work Phone: Radiology Comment on above: Weakness of both low er extremities [R29.898] Start: 11-02-2024 End: 11-02-2024 ambulatory [facility] Facility:[facility] Start: 11-02-2024 End: 11-02-2024 Office outpatient visit 25 minutes Radha Batista EDGE BANDING OFF BEARER.[employer]URB[employer] ASSEMBLER Work Phone: [facility] [place] Comment on above: Weakness of both low er extremities (Primary Dx); Uncontrolled type 2 diabetes mellitus with hyperglycemia (HCC); Hyperlipidemia, unspecified hyperlipidemia type; Leg pain, bilateral Start: 11-02-2024 End: 11-02-2024 ambulatory [facility] Facility:[facility] Start: 10-29-2024 End: 10-29-2024 Refill Aleksandar Jones MD Work Phone: [facility] [place] Comment on above: Refill Request Start: 10-14-2024 End: 10-14-2024 Emergency department patient visit Dr. Tae Holland DO -Emergency Department Work Phone: Start: 10-14-2024 End: 10-14-[address] Lorraine Springer MD -Laboratory Work Phone: Start: 10-14-2024 End: 10-14-2024 ambulatory Shelia Salmon Facility:[facility] Start: 10-04-2024 End: 10-04-2024 Refill Aleksandar Jones MD Work Phone: [facility] [place] Comment on above: Refill Request Start: 09-28-2024 End: 09-28-2024 Office outpatient visit 25 minutes Radha Batista EDGE BANDING OFF BEARER.[employer]URB[employer] ASSEMBLER Work Phone: [facility] [place] Comment on above: Leg pain, bilateral (Primary Dx) Start: 09-28-2024 End: 09-28-2024 ambulatory ALEKSANDAR JONES Facility:[facility] Start: 09-24-2024 End: 09-24-2024 Refill Aleksandar Jones MD Work Phone: [facility] [place] Comment on above: Refill Request Start: 09-20-2024 End: 09-20-2024 ambulatory ALEKSANDAR OJNES Facility:[facility] Start: 09-20-2024 End: 09-20-2024 Patient encounter procedure Fuentes Renee MD Work Phone: Cardiology Comment on above: Primary hypertension (Primary Dx); Pure hypercholesterolemia; SVT (supraventricular tachycardia) (HCC); Tachycardia Start: 09-16-2024 End: 09-16-[address] Lorraine Springer MD -Laboratory Work Phone: Start: 09-16-2024 End: 09-16-2024 ambulatory Shelia Suppan Facility:[facility] Start: 09-08-2024 End: 09-08-2024 Office outpatient visit 25 minutes Radha Batista ED[employer] B[employer]ING OFF BEARER.[employer]URBINE ASSEMBLER Work Phone: [facility] Comment on above: Chronic obstructive pulmonary disease, unspecified COPD type (HCC) (Primary Dx); Leg pain, bilateral; Encounter for immunization Start: 09-08-2024 End: 09-08-2024 ambulatory ALEKSANDAR JONES Facility:[facility] Start: 08-31-2024 End: 08-31-2024 Refill Aleksandar Jones MD Work Phone: [facility] Comment on above: Refill Request Start: 08-25-2024 End: 09-11-[address] Lorraine Springer MD -Laboratory Work Phone: Start: 08-25-2024 End: 09-11-2024 ambulatory Shelia Suppan Facility:[facility] Start: 08-24-2024 End: 08-24-2024 ambulatory SHELIA A SUPPAN Facility:[facility] Start: 08-24-2024 End: 08-24-2024 Office outpatient visit 15 minutes Shelia A Suppan EDGE B[employer]ING OFF BEARER.[employer] TURBINE ASSEMBLER Work Phone: [facility] Comment on above: LIDA (obstructive sle ep apnea) (Primary Dx); Acute exacerbation of chronic obstructive pulmonary disease (COPD) (HCC); Tachycardia; Tinea cruris Start: 08-20-2024 End: 08-20-2024 Refill Aleksandar Jones MD Work Phone: [facility] Comment on above: Refill Request Start: 08-18-2024 End: 08-18-2024 Telephone encounter Aleksandar Jones MD Work Phone: [facility] [place] Comment on above: Medication Problem Start: 08-16-2024 End: 08-16-2024 Telephone encounter Aleksandar Jones MD Work Phone: [facility] [place] Comment on above: Medication Request ( Cough drops) Start: 08-06-2024 End: 08-06-2024 Refill Aleksandar Jones MD Work Phone: [facility] [place] Comment on above: Refill Request Start: 07-31-2024 End: 07-31-2024 ambulatory Barbara Dickens RN NURSE LATHE PULLER Comment on above: Information Start: 07-31-2024 End: 07-31-2024 Patient encounter procedure Malcolm Abreu RN NURSE ON JAZLYN L Comment on above: Clinical Update Start: 07-31-2024 End: 07-31-2024 Telephone encounter Aleksandar Jones MD Work Phone: [facility] [place] Comment on above: took another group h ome patient s medications Start: 07-29-2024 End: 07-29-2024 Refill Aleksandar Jones MD Work Phone: [facility] [place] Comment on above: Refill Request Start: 07-23-2024 End: 07-23-2024 ambulatory ALEKSANDAR JONES Facility:[facility] Start: 07-23-2024 End: 07-23-2024 Office outpatient visit 15 minutes Adriano Menezes APRN.CNP Work Phone: [facility] Comment on above: Pain of right eye (P rimary Dx) Start: 07-22-2024 End: 07-22-2024 Telephone encounter Aleksandar Jones MD Work Phone: [facility] [place] Comment on above: Patient Question Start: 07-14-2024 End: 07-14-2024 Telephone encounter Aleksandar Jones MD Work Phone: [facility] Comment on above: Medication issue Start: 07-09-2024 End: 07-09-2024 Refill Aleksandar Jones MD Work Phone: [facility] [place] Comment on above: Refill Request Start: 07-06-2024 End: 07-06-2024 Office outpatient visit 25 minutes Radha Batista APRN.CNP Work Phone: [facility] [place] Comment on above: Uncontrolled type 2 diabetes mellitus with hyperglycemia (HCC) (Primary Dx); Encounter for immunization; Fatigue, unspecified type; Type 2 diabetes mellitus with diabetic nephropathy, with long-term current use of insulin (HCC); Chronic obstructive pulmonary disease, unspecified COPD type (HCC); Schizophreniform disorder, chronic condition (HCC); Primary hypertension; Vitamin D deficiency; Pure hypercholesterolemia Start: 07-06-2024 End: 07-06-2024 ambulatory RADHA BATISTA Facility:[facility] Start: 06-23-2024 End: 06-28-2024 ambulatory Aleksandar Jones MD Work Phone: Internal Medicine [place] [id number] Start: 06-17-2024 End: 06-17-2024 Refill Alekasndar Jones MD Work Phone: [facility] [place] Comment on above: Refill Request Start: 06-11-2024 End: 06-16-2024 Refill Fuentes Renee MD Work Phone: Cardiology Comment on above: Refill Request Start: 06-09-2024 End: 06-09-2024 Refill Aleksandar Jones MD Work Phone: [facility] [place] Comment on above: Refill Request Start: 05-19-2024 Telephone encounter Aleksandar Jones MD Work Phone: [facility] [place] Comment on above: Patient Question Start: 05-18-2024 Refill Aleksandar Jones MD Work Phone: [facility] [place] Comment on above: Refill Request Start: 05-03-2024 Refill Aleksandar Jones MD Work Phone: [facility] [place] Comment on above: Refill Request Medication Problem Start: 04-16-2024 Refill Aleksandar Jones MD Work Phone: [facility] [place] Comment on above: Refill Request Start: 04-14-2024 End: 04-14-2024 Office outpatient visit 25 minutes Radha Batista ED[employer] B[employer]ING OFF BEARER.[employer]URB[employer] ASSEMBLER Work Phone: [facility] [place] Comment on above: Folliculitis (Primar y Dx); Fatigue, unspecified type Start: 04-01-2024 End: 04-01-2024 ambulatory Long Golias PT Work Phone: [facility] Comment on above: Weakness of both low er extremities (Primary Dx) Start: 03-30-2024 End: 03-30-2024 ambulatory Long Golias PT Work Phone: [facility] Comment on above: Weakness of both low er extremities (Primary Dx) Start: 03-30-2024 End: 03-30-2024 Office outpatient visit 15 minutes Radha Batista ED[employer] B[employer]ING OFF BEARER.[employer]URBINE ASSEMBLER Work Phone: [facility] Comment on above: Uncontrolled type 2 diabetes mellitus with hyperglycemia (HCC) (Primary Dx) Start: 03-25-2024 End: 03-25-2024 ambulatory Jaci Kashuba STRESS ANALYST Work Phone: [facility] Comment on above: Weakness of both low er extremities (Primary Dx) Start: 03-23-2024 End: 03-23-2024 ambulatory Long Golias PT Work Phone: [facility] Comment on above: Weakness of both low er extremities (Primary Dx) Start: 03-19-2024 Refill Aleksandar Jones MD Work Phone: [facility] Comment on above: Refill Request Start: 03-19-2024 End: 03-19-2024 Office outpatient visit 25 minutes Radha Batista EDGE BANDING OFF BEARER.STE[employer] AND [employer] TURBINE ASSEMBLER Work Phone: [facility] Comment on above: Uncontrolled type 2 diabetes mellitus with hyperglycemia (HCC) (Primary Dx); Thrombocytopenia (HCC); Elevated liver enzymes Start: 03-18-2024 Telephone encounter Aleksandar Jones MD Work Phone: Pulmonology [facility] Comment on above: Patient Update Start: 03-18-2024 End: 03-18-2024 ambulatory Jaci Kashuba STRESS ANALYST Work Phone: [facility] Comment on above: Weakness of both low er extremities (Primary Dx); Leg weakness, bilateral Start: 03-16-2024 End: 03-16-2024 ambulatory Long Golias PT Work Phone: [facility] Comment on above: Weakness of both low er extremities (Primary Dx) Start: 03-12-2024 Telephone encounter Rolf Rianna herrera Okchance DO Work Phone: Internal Medicine [place] Comment on above: Patient Update (Call from nurse on-call last evening on March 11 regarding hyperglycemia) Start: 03-05-2024 Telephone encounter Radha brown APRN.[employer]URBINE ASSEMBLER Work Phone: [facility] Comment on above: Results Start: 03-04-2024 End: 03-04-2024 ambulatory Jaci KasScreenburnba STRESS ANALYST Work Phone: [facility] Comment on above: Weakness of both low er extremities (Primary Dx) Start: 03-02-2024 End: 03-02-2024 ambulatory Long Golias PT Work Phone: [facility] Comment on above: Leg weakness, bilate ral (Primary Dx); Weakness of both lower extremities Start: 03-02-2024 End: 03-02-2024 Office outpatient visit 25 minutes Radha Batista APRN.[employer] AND [employer]URBINE ASSEMBLER Work Phone: [facility] Comment on above: Fatigue, unspecified type (Primary Dx); Pain in both lower extremities; Type 2 diabetes mellitus with diabetic nephropathy, with long-term current use of insulin (HCC) Start: 02-26-2024 End: 02-26-2024 ambulatory Long Golias PT Work Phone: [facility] Comment on above: Leg weakness, bilate ral (Primary Dx) Start: 02-24-2024 End: 02-24-2024 ambulatory Jaci Kashuba STRESS ANALYST Work Phone: [facility] Comment on above: Leg weakness, bilate ral (Primary Dx) Refill Request Start: 02-19-2024 End: 02-19-2024 ambulatory Long Golias PT Work Phone: [facility] Comment on above: Leg weakness, bilate ral (Primary Dx) Start: 02-17-2024 End: 02-17-2024 ambulatory Jaci Kashuba STRESS ANALYST Work Phone: [facility] Comment on above: Leg weakness, bilate ral (Primary Dx) Start: 02-12-2024 End: 02-12-2024 ambulatory Jaci Bhargavhuba STRESS ANALYST Work Phone: [facility] Comment on above: Leg weakness, bilate ral (Primary Dx) Start: 02-10-2024 End: 02-10-2024 ambulatory Long Golias PT Work Phone: [facility] Comment on above: Leg weakness, bilate ral (Primary Dx) Start: 02-05-2024 End: 02-05-2024 ambulatory Jaci Almendarezba STRESS ANALYST Work Phone: [facility] Comment on above: Leg weakness, bilate ral (Primary Dx) Start: 02-04-2024 Telephone encounter Aleksandar Jones MD Work Phone: [facility] Comment on above: Insurance Authorizat ion (Lantus solostar ) Start: 02-03-2024 End: 02-10-2024 Discharged Recurring [facility] Work Phone: Start: 02-03-2024 End: 02-10-2024 ambulatory Long Golias PT Work Phone: [facility] Comment on above: Leg weakness, bilate ral (Primary Dx) Start: 01-29-2024 Refill Aleksandar Jones MD Work Phone: [facility] Comment on above: Refill Request Start: 01-21-2024 End: 01-21-2024 ambulatory Long Golias PT Work Phone: [facility] Therapy Comment on above: Leg weakness, bilate ral Start: 01-13-2024 End: 01-13-2024 Office outpatient visit 25 minutes Radha Batista APRN.[employer]SEMBLER Work Phone: [facility] Comment on above: Acute constipation ( Primary Dx); Nasal dryness; Pain in both lower extremities; Leg weakness, bilateral; Sedative, hypnotic or anxiolytic dependence, uncomplicated (HCC); Acute respiratory failure with hypoxia (HCC); Chronic obstructive pulmonary disease, unspecified COPD type (HCC); SVT (supraventricular tachycardia) (HCC) Start: 01-07-2024 End: 01-10-2024 ambulatory [facility] Work Phone: Start: 01-07-2024 End: 01-10-2024 Discharged Recurring [facility]Laboratory Work Phone: Start: 12-13-2023 End: 12-14-2023 Emergency department patient visit Dr. Aleksandar Jones Work Phone: [facility]-Emergency Department Work Phone: Start: 12-02-2023 Refill Aleksandar Jones MD Work Phone: [facility] Comment on above: Refill Request Start: 11-20-2023 Telephone encounter Meredith Glen mcmahan APRN.[employer] ASSEMBLER Work Phone: [facility] Comment on above: Results (Labs ) Start: 11-19-2023 End: 12-11-[address] Aleksandar Jones Work Phone: [facility] Work Phone: Start: 11-19-2023 End: 12-11-[address] Aleksandar Jones Work Phone: [facility] Work Phone: Start: 10-24-2023 End: 10-24-[address] Aleksandar Jones Work Phone: [facility] Work Phone: Start: 10-24-2023 End: 10-24-[address] Aleksandar Jones Work Phone: [facility]-Radiology, [facility] Work Phone: Start: 10-22-2023 End: 10-22-[address] Aleksandar Jones Work Phone: [facility] Work Phone: Start: 10-22-2023 End: 10-22-[address] Aleksandar Jones Work Phone: [facility] Work Phone: Start: 10-22-[address] Andrew Jones Work Phone: [facility] Work Phone: Start: 09-22-2023 End: 09-22-2023 Patient encounter procedure Fuentes Renee MD Work Phone: Cardiology Comment on above: Primary hypertension (Primary Dx); Pure hypercholesterolemia; SVT (supraventricular tachycardia) Start: 09-17-2023 End: 10-12-[address] [facility] Start: 09-10-2023 Refill Aleksandar Jones MD Work Phone: [facility] Comment on above: Refill Request Start: 09-09-2023 Telephone encounter Aleksandar Jones MD Work Phone: [facility] Comment on above: Medication Problem ( Test strips and lancets) Start: 08-31-2023 Telephone encounter Alma brown EDGE [employer] BEARER.[employer] ASSEMBLER Work Phone: [facility] Comment on above: Results Start: 08-29-2023 End: 08-29-2023 Patient encounter procedure Alma Ac [employer]ER.[employer] ASSEMBLER Work Phone: OB/Gynecology Comment on above: Itching in the vagin al area (Primary Dx) Start: 08-28-2023 Refill Aleksandar Jones MD Work Phone: [facility] Comment on above: Refill Request Start: 08-20-2023 Telephone encounter Aleksandar Jones MD Work Phone: [facility] Comment on above: Refill Request; Medi cation Problem Start: 08-19-2023 Telephone encounter Aleksandar Jones MD Work Phone: [facility] Comment on above: Elevated Blood Sugar Start: 08-19-2023 End: 09-11-[address] Aleksandar Jones Work Phone: [facility] Work Phone: Start: 08-19-2023 End: 09-11-[address] Aleksandar Jones Work Phone: [facility]-Laboratory Work Phone: Start: 08-16-2023 Non-patient / Non-visit Dr. Julio Cesar Jones Work Phone: [facility] Work Phone: Start: 08-15-2023 Non-patient / Non-visit Dr. Julio Cesar Jones Work Phone: [facility] Work Phone: Start: 08-14-2023 Non-patient / Non-visit Dr. Julio Cesar Jones Work Phone: [facility] Work Phone: Start: 08-14-2023 End: 08-16-2023 Evaluation and management of inpatient Dr. Aleksandar Jones Work Phone: [facility]-Progressive Care Unit Work Phone: Start: 08-12-2023 Refill Aleksandar Jones MD Work Phone: [facility] Comment on above: Refill Request Start: 07-17-2023 End: 07-17-[address] Aleksandar Jones Work Phone: [facility]Labor[facility] Work Phone: Start: 07-16-2023 ambulatory Aleksandar Jones MD Work Phone: Internal Medicine [facility] [place] Start: 07-15-2023 Refill Fuentes Renee MD Work Phone: Cardiology Comment on above: Refill Request Start: 06-18-2023 End: 06-18-2023 Refill Aleksandar Jones MD Work Phone: [facility] Comment on above: Refill Request Start: 06-18-2023 End: 06-18-2023 Discharged Recurring [facility] Work Phone: Start: 05-27-2023 Refill Aleksandar Jones MD Work Phone: [facility] Comment on above: Refill Request Start: 05-26-2023 Telephone encounter Radha brown APRN.[employer]SEMBLER Work Phone: [facility] Comment on above: Results Start: 05-26-2023 End: 05-26-2023 Nursing evaluation of patient and report [facility] Work Phone: [facility] Comment on above: Tachycardia (Primary Dx) Start: 05-26-2023 End: 05-26-2023 Subsequent hospital visit by physician Injection Nm Counts Include 234 Beds At [facility] Work Phone: Nuclear Medicine Comment on above: Chest pain, unspecif ied type [R07.9] Start: 05-23-2023 Refill Aleksandar Jones MD Work Phone: [facility] Comment on above: Refill Request Start: 05-20-2023 End: 05-20-2023 [facility] Work Phone: Start: 05-20-2023 End: 05-20-2023 Discharged Recurring [facility] Work Phone: Start: 05-08-2023 Telephone encounter Aleksandar Jones MD Work Phone: [facility] Comment on above: Results Start: 05-05-2023 End: 05-12-2023 ambulatory [facility] Work Phone: Start: 05-05-2023 End: 05-12-2023 Discharged Recurring [facility] Work Phone: Start: 04-30-2023 End: 04-30-2023 ambulatory [facility] Work Phone: Start: 04-30-2023 End: 04-30-2023 Patient encounter procedure [facility]-Cat Scan, [facility] Work Phone: Start: 04-29-2023 End: 04-29-2023 Office outpatient visit 40 minutes Radha Batista APRN.[employer]SEMBLER Work Phone: [facility] Comment on above: Chest pain, unspecif ied type (Primary Dx); Weight loss; Type 2 diabetes mellitus with diabetic nephropathy, with long-term current use of insulin (HCC); Hyperlipidemia, unspecified hyperlipidemia type; GERD without esophagitis; Acute diastolic CHF (congestive heart failure) ([facility]); Schizophreniform disorder, chronic condition ([facility]); Fatigue, unspecified type Start: 03-17-2023 End: 03-17-2023 ambulatory [facility] Work Phone: Start: 03-17-2023 End: 03-17-2023 Discharged Recurring [facility] Work Phone: Start: 02-26-2023 Refill Radha Batista APRN.[employer]SEMBLER Work Phone: [facility] Comment on above: Refill Request Start: 02-17-2023 End: 03-12-2023 ambulatory [facility] Work Phone: Start: 02-17-2023 End: 03-12-2023 Discharged Recurring [facility]Labor[facility] Start: 02-14-2023 Refill Aleksandar Jones MD Work Phone: [facility] Comment on above: Refill Request Start: 01-30-2023 Refill Aleksandar Jones MD Work Phone: [facility] Comment on above: Refill Request Start: 01-15-2023 End: 02-09-2023 [facility] Work Phone: Start: 01-15-2023 End: 02-09-2023 Discharged Recurring [facility]Labor[facility] Start: 12-16-2022 End: 01-10-2023 [facility] Work Phone: Start: 12-16-2022 End: 01-10-2023 Discharged Recurring [facility]Labor[facility] Start: 12-09-2022 Refill Aleksandar Jones MD Work Phone: [facility] Comment on above: Refill Request Start: 11-19-2022 End: 11-19-2022 ambulatory [facility] Work Phone: Start: 11-19-2022 End: 11-19-2022 Discharged Recurring [facility]Labor[facility] Start: 10-17-2022 End: 10-17-2022 ambulatory [facility] Work Phone: Start: 10-17-2022 End: 10-17-2022 Discharged Recurring [facility]Labor[facility] Start: 10-08-2022 Refill Aleksandar Jones MD Work Phone: [facility] Comment on above: Refill Request Start: 10-04-2022 Refill Aleksandar Jones MD Work Phone: [facility] Comment on above: Refill Request Start: 09-19-2022 End: 09-19-2022 [facility] Work Phone: Start: 09-19-2022 End: 09-19-2022 Discharged Recurring [facility] Start: 09-11-2022 Refill Aleksandar Jones MD Work Phone: [facility] Comment on above: Refill Request Start: 08-30-2022 Refill Aleksandar Jones MD Work Phone: [facility] Comment on above: Refill Request Start: 08-28-2022 End: 08-28-2022 Office outpatient visit 25 minutes Radha Batista APRN.CNP Work Phone: [facility] Comment on above: Type 2 diabetes mendel itus with diabetic nephropathy, with long- term current use of insulin (HCC) (Primary Dx); Schizophreniform disorder, chronic condition (HCC); Hyperlipidemia, unspecified hyperlipidemia type; LIDA (obstructive sleep apnea); Rosacea; Upper back pain; Gassiness Start: 08-19-2022 Refill Aleksandar Jones MD Work Phone: [facility] Comment on above: Refill Request Start: 08-15-2022 End: 09-11-2022 Refill Aleksandar Jones MD Work Phone: [facility] Comment on above: Refill Request Start: 08-15-2022 End: 09-11-2022 Discharged Recurring [facility] Start: 08-13-2022 Refill Fuentes Renee MD Work Phone: Cardiology Comment on above: Refill Request Start: 08-08-2022 End: 08-08-2022 Patient encounter procedure Zaira Mancilla [employer]ER.[employer] ASSEMBLER Work Phone: [facility] Comment on above: Conjunctivitis of le ft eye, unspecified conjunctivitis type (Primary Dx); Facial infection Start: 08-07-2022 ambulatory Aleksandar Jones MD Work Phone: Internal Medicine [facility] Start: 07-23-2022 End: 07-23-2022 Discharged Recurring [facility] Start: 07-05-2022 End: 07-05-2022 Patient encounter procedure Zaira Mancilla [employer]ER.[employer] ASSEMBLER Work Phone: [facility] Comment on above: Injury of toenail of right foot, initial encounter (Primary Dx) Start: 06-20-2022 Refill Aleksandar Jones MD Work Phone: [facility] Comment on above: Refill Request Start: 06-19-2022 End: 06-19-2022 ambulatory [facility] Work Phone: Start: 06-19-2022 End: 06-19-2022 Discharged Recurring [facility] Start: 06-05-2022 End: 06-06-2022 Emergency department patient visit [facility]-Emergency Department Start: 05-17-2022 End: 05-17-2022 ambulatory [facility] Work Phone: Start: 05-17-2022 End: 05-17-2022 [facility] Start: 05-17-2022 [facility] Start: 05-08-2022 Refill Aleksandar Jones MD Work Phone: [facility] Comment on above: Refill Request Start: 05-07-2022 Telephone encounter Aleksandar Jones MD Work Phone: [facility] [place] Comment on above: Patient Question Start: 05-02-2022 Refill Aleksandar Jones MD Work Phone: [facility] Comment on above: Refill Request Start: 04-18-2022 End: 04-18-2022 Patient encounter procedure [facility]Cat Scan, [facility] Start: 04-17-2022 End: 05-12-2022 [facility] Start: 04-17-2022 [facility]istered [facility] Start: 04-09-2022 End: 04-10-2022 Emergency department patient visit [facility]Emergency Department Start: 03-27-2022 End: 03-27-2022 Office outpatient visit 15 minutes Radha Batista APRN.[employer]SEMBLER Work Phone: [facility] Comment on above: Skin irritation (Moraima malcolm Dx); Rosacea Start: 03-27-2022 Refill Aleksandar Jones MD Work Phone: [facility] Comment on above: Refill Request Start: 03-20-2022 End: 03-20-2022 [facility] Start: 03-20-2022 [facility]istered [facility] Start: 02-13-2022 End: 02-13-2022 [facility] Start: 01-30-2022 End: 01-30-2022 Patient encounter procedure Radha Batista APRN.[employer] ASSEMBLER Work Phone: [facility] Comment on above: Right hip pain (Prim robin Dx) Start: 01-29-2022 Telephone encounter Aleksandar Jones MD Work Phone: [facility] Comment on above: Medication Request Start: 01-14-2022 End: 01-14-2022 Refill Aleksandar Jones MD Work Phone: [facility] Comment on above: Refill Request Tachycardia (Primary Dx); SVT (supraventricular tachycardia) (HCC); Acute diastolic CHF (congestive heart failure) (HCC); Chronic obstructive pulmonary disease, unspecified COPD type (HCC); LIDA (obstructive sleep apnea); Water intoxication; Type 2 diabetes mellitus with diabetic nephropathy, with long-term current use of insulin ([facility]); Schizophreniform disorder, chronic condition ([facility]); Vitamin D deficiency; Advance care planning Start: 01-14-2022 End: 01-14-2022 Discharged Recurring [facility] Start: 01-11-2022 Refill Aleksandar Jones MD Work Phone: [facility] Comment on above: Refill Request Start: 12-13-2021 End: 01-10-2022 [facility] Start: 11-20-2021 End: 11-20-2021 [facility] Start: 10-16-2021 End: 11-12-2021 [facility] Start: 09-24-2021 End: 10-13-2021 [facility] Start: 07-19-2021 End: 07-19-2021 Subsequent hospital visit by physician [facility] Work Phone: Radiology Comment on above: Behavioral change [R 46.89] Start: 10-18-2020 End: 10-18-2020 Subsequent hospital visit by physician [facility] Work Phone: Radiology Comment on above: SOB (shortness of br eat) [R06.02] Start: 06-08-2018 Ambulatory [facility] Facility :[facility] Start: 11-27-2017 End: 11-27-2017 Ambulatory [facility] Facility:[facility] Start: 08-29-2009 End: 11-26-2011 Patient encounter status Long Davis PT Work Phone: [facility] Work Phone: Procedures Date Procedure Procedure Detail Performing Clinician Start: 06-23-2025 End: 06-23-[address] Aleksandar Jones MD Work Phone: Start: 05-24-2025 Lymphocyte percent differential count Dr. Aleksandar Jones MD Work Phone: Start: 05-06-[address] Viki [...] exam ches t 2 views Radha Batista APRN.[employer]SEMBLER Work Phone: Start: 11-12-2024 Plain chest X-ray [...] exam ches t 2 views Zaira Mancilla [employer]ER.[employer] ASSEMBLER Work Phone: Start: 11-09-2024 INFLUENZA A&B MOLECU LAR (POC) [facility] Provider Start: 11-09-[address] Andrew Jones MD Work Phone: Start: 11-09-2024 SARS-CoV-2, Influenz a & RSV (PCR) Dr. Aleksandar Jones MD Work Phone: Start: 11-02-2024 Radex spine lumbosac ral 2/3 views Radha Batista [employer]ER.[employer] ASSEMBLER Work Phone: Start: 10-14-2024 Plain chest X-ray Dr. Melanie Jones MD Work Phone: Start: 10-14-2024 SARS-CoV-2, Influenz a & RSV (PCR) Dr. 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 Work Phone: Start: 12-13-2023 Computed tomography of [...] Myocardial spect mul tiple studies Radha Batista [employer]ER.[employer] ASSEMBLER Work Phone: Start: 04-30-2023 CT of chest Start: 04-18-2022 CT of chest Start: 01-14-2022 Adult depression scr eening assessment Aleksandar Jones MD Work Phone: Start: 07-19-2021 Radiologic exam ches t 2 views Aleksandar Jones MD Work Phone: Start: 06-27-2021 Mammography Aleksandar Anaya MD Work Phone: Start: 10-18-2020 Radiologic exam ches t 2 views Maria L Cedeno ED[employer] BEARER.[employer] ASSEMBLER Work Phone: Start: 08-05-2019 Adult depression scr eening assessment Aleksandar Jones MD Work Phone: Start: 12-19-2016 Colonoscopy Aleksandar Anaya MD Work Phone: Viral antigen assay Plan of Treatment Date Care Activity Detail Author Start: 06-23-2035 Screening for malignant neoplasm of colon [facility] Start: 07-18-2028 Urine microalbumin profile DTaP,Tdap,Td Vaccine (3 - Td or Tdap) [facility] Start: 12-19-2026 Colonoscopy COLONOSCOPY [facility] Start: 12-19-2026 COLORECTAL CANCER SCREENING COLORECTAL CANCER SCREENING [facility] Start: 12-19-2026 Screening for malignant neoplasm of colon [facility] Start: 06-28-2026 Annual PCP Team Chronic Disease Visit Annual PCP Team Chronic Disease Visit [facility] Start: 06-28-2026 Shingrix Vaccine (2 of 2) Shingrix Vaccine (2 of 2) [facility] Comment on above: Postponed from 02/03/2024 (Declined at t his time) Start: 05-06-2026 Screening for malignant neoplasm of lung Lung Cancer Screening [facility] Start: 04-03-2026 End: 04-03-2026 Patient encounter procedure 04/03/2026 1:20 PM EDT Office Visit Cardiology [address] [place] [address] Fuentes Renee MD [address], [address] [place] [address] 1 year follow up Cardiology Comment on above: 1 year follow up Start: 03-29-2026 Annual PCP Team Chronic Disease Visit Annual PCP Team Chronic Disease Visit [facility] Start: 01-24-2026 HPV TESTING HPV TESTING [facility] Start: 01-24-2026 PAP TESTING PAP TESTING [facility] Start: 01-24-2026 Screening for malignant neoplasm of cervix [facility] Start: 01-19-2026 Screening for malignant neoplasm of breast Mammogram Screening [facility] Start: 01-12-2026 Annual PCP Team Chronic Disease Visit Annual PCP Team Chronic Disease Visit [facility] Start: 01-12-2026 BP Controlled (<130/80) BP Controlled (<130/80) [facility] Start: 12-28-2025 Annual PCP Team Chronic Disease Visit Annual PCP Team Chronic Disease Visit [facility] Start: 12-28-2025 BP Controlled (<130/80) BP Controlled (<130/80) [facility] Start: 12-28-2025 HIV screening HIV Screening [facility] Comment on above: Postponed from 1981 (Declined at t his time) Start: 12-28-2025 End: 12-28-2025 Patient encounter procedure 12/28/2025 10:20 AM EDT Office Visit [facility] [place] [address] [place] [place] [address] Aleksandar Jones MD [address] [place] [place] [address] physical 6 months [facility] [place] Comment on above: physical 6 months Start: 12-26-2025 Hemoglobin A1c measurement HbA1C [facility] Start: 12-07-2025 Annual PCP Team Chronic Disease Visit Annual PCP Team Chronic Disease Visit [facility] Start: 12-07-2025 BP Controlled (<130/80) BP Controlled (<130/80) [facility] Start: 11-02-2025 Annual PCP Team Chronic Disease Visit Annual PCP Team Chronic Disease Visit [facility] Start: 11-02-2025 BP Controlled (<130/80) BP Controlled (<130/80) [facility] Start: 11-02-2025 Diabetic foot examination Diabetic Foot Exam [facility] Start: 11-02-2025 Hepatitis B surface antibody level LDL Cholesterol [facility] Start: 09-28-2025 Annual PCP Team Chronic Disease Visit Annual PCP Team Chronic Disease Visit [facility] Start: 09-28-2025 Hemoglobin A1c measurement HbA1C [facility] Start: 09-20-2025 BP Controlled (<130/80) BP Controlled (<130/80) [facility] Start: 09-08-2025 Annual PCP Team Chronic Disease Visit Annual PCP Team Chronic Disease Visit [facility] Start: 09-08-2025 BP Controlled (<130/80) BP Controlled (<130/80) [facility] Start: 07-23-2025 BP Controlled (<130/80) BP Controlled (<130/80) [facility] Start: 07-20-2025 End: 07-20-2025 Patient encounter procedure 07/20/2025 1:40 PM EDT Office Visit [facility] [place] [address] [address] Aleksandar Jones MD [address] [place] [id number] 6 month follow up [facility] [place] Comment on above: 6 month follow up Start: 07-06-2025 Annual PCP Team Chronic Disease Visit Annual PCP Team Chronic Disease Visit [facility] Start: 06-28-2025 End: 09-27-2025 Basic metabolic 2000 panel - Serum or Plasma [facility] Work Phone: Comment on above: Expected: 06/28/2025, Expires: Start: 06-28-2025 End: 09-27-2025 Magnesium [Mass/volume] in Serum or Plasma [facility] Comment on above: Expected: 06/28/2025, Expires: Start: 06-28-2025 End: 09-27-2025 Natriuretic peptide.B prohormone N-Terminal [Mass/volume] in Serum or Plasma [facility] Comment on above: Expected: 06/28/2025, Expires: Start: 06-28-2025 End: 06-28-2025 Patient encounter procedure [facility] Comment on above: 6 month follow up 6 month follow up (s tatin [facility] Start: 06-28-2025 End: 09-27-2025 Thyrotropin [Units/volume] in Serum or Plasma [facility] Comment on above: Expected: 06/28/2025, Expires: Start: 06-23-2025 Colonoscopy w/biopsy single/multiple COLONOSCOPY AND BIOPSY [facility] Start: 06-23-2025 Endoscopy upper small intestine w/biopsy SMALL BOWEL ENDOSCOPY/BIOPSY [facility] Start: 06-23-2025 Patient discharge [facility] Start: 06-13-2025 Influenza vaccination Influenza Vaccine (#1) [facility] Start: 05-04-2025 Screening for malignant neoplasm of lung Lung Cancer Screening [facility] Start: 05-02-2025 Hemoglobin A1c measurement HbA1C [facility] Start: 04-14-2025 Annual PCP Team Chronic Disease Visit Annual PCP Team Chronic Disease Visit [facility] Start: 04-14-2025 BP Controlled (<130/80) BP Controlled (<130/80) [facility] Start: 04-04-2025 End: 04-04-2025 Patient encounter procedure Cardiology Comment on above: 6 month check Start: 03-30-2025 Annual PCP Team Chronic Disease Visit Annual PCP Team Chronic Disease Visit [facility] Start: 03-30-2025 BP Controlled (<130/80) BP Controlled (<130/80) [facility] Start: 03-29-2025 End: 03-29-2025 Patient encounter procedure 03/29/2025 9:00 AM EDT Office Visit [facility] [place] [address] [place] [address] Aleksandar Jones MD [address] [place] [address] 2 month follow up [facility] [place] Comment on above: 2 month follow up Start: 03-19-2025 Annual PCP Team Chronic Disease Visit Annual PCP Team Chronic Disease Visit [facility] Start: 03-18-2025 End: 03-18-2025 Patient encounter procedure 03/18/2025 8:40 AM EDT Office Visit [facility] [place] [address] [place] [address] Radha Batista APRN.[employer]ER [address] [place] [address] 2 month follow up Family [facility] Comment on above: 2 month follow up Start: 03-14-2025 End: 03-14-2025 Patient encounter procedure 03/14/2025 9:00 AM EDT Office Visit [facility] [place] [address] [place] [address] Aleksandar Jones MD [address] [place] [address] 2 month follow up Family [facility] Comment on above: 2 month follow up Start: 03-02-2025 Annual PCP Team Chronic Disease Visit Annual PCP Team Chronic Disease Visit [facility] Start: 03-02-2025 BP Controlled (<130/80) BP Controlled (<130/80) [facility] Start: 02-11-2025 End: 05-13-2025 Hepatitis B virus core Ab [Presence] in Serum HEPATITIS B CORE ANTIBODY TOTAL Lab Routine Hepatitis B core antibody positive Expected: 02/11/2025, Expires: 05/13/[address] [facility] Comment on above: Expected: 02/11/2025, Expires: Start: 02-11-2025 End: 05-13-2025 Hepatitis B virus core IgM Ab [Presence] in Serum HEPATITIS B CORE ANTIBODY IGM Lab Routine Hepatitis B core antibody positive Expected: 02/11/2025, Expires: 05/13/[address] [facility] Comment on above: Expected: 02/11/2025, Expires: Start: 02-11-2025 End: 05-13-2025 Hepatitis B virus DNA [Units/volume] in Serum HEPATITIS B VIRUS (HBV) DNA, QUANTITATIVE PCR, PLASMA/SERUM Lab Routine Hepatitis B core antibody positive Expected: 02/11/2025, Expires: 05/13/2025 [facility] Work Phone: Comment on above: Expected: 02/11/2025, Expires: Start: 02-11-2025 End: 05-13-2025 Hepatitis B virus surface Ab [Presence] in Serum HEPATITIS B SURFACE ANTIBODY Lab Routine Hepatitis B core antibody positive Expected: 02/11/2025, Expires: 05/13/[address] [facility] Comment on above: Expected: 02/11/2025, Expires: Start: 02-11-2025 End: 05-13-2025 Hepatitis B virus surface Ag [Presence] in Serum HEPATITIS B SURFACE ANTIGEN Lab Routine Hepatitis B core antibody positive Expected: 02/11/2025, Expires: 05/13/[address] [facility] Comment on above: Expected: 02/11/2025, Expires: Start: 02-04-2025 BP Controlled (<130/80) BP Controlled (<130/80) [facility] in Start: 01-20-2025 BP Controlled (<130/80) BP Controlled (<130/80) [facility] in Start: 01-19-2025 End: 01-19-2025 Patient encounter procedure 01/19/2025 2:20 PM EDT Appointment Mammogram [address] [place] [address] Encounter for screening mammogram for breast cancer [Z12.31] Mammogram Comment on above: Encounter for screening mammogram for br east cancer [Z12.31] Start: 01-18-2025 End: 02-03-2026 US Abdomen RUQ US ABD RIGHT UPPER QUADRANT Radiology Routine Elevated liver enzymes Expected: 01/18/2025, Expires: 02/03/2026 [facility] Work Phone: Comment on above: Expected: 01/18/2025, Expires: Start: 01-18-2025 End: 01-18-2025 Patient encounter procedure 01/18/2025 10:00 AM EDT Appointment Radiology [address] [place] [address] Elevated liver enzymes [R74.8] Radiology Comment on above: Elevated liver enzymes [R74.8] Start: 01-14-2025 End: 04-15-2025 Comprehensive metabolic 2000 panel - Serum or Plasma COMPREHENSIVE METABOLIC PANEL Lab Routine Liver function test abnormality Hyponatremia Expected: 01/14/2025, Expires: 04/15/2025 [facility] Work Phone: Comment on above: Expected: 01/14/2025, Expires: Start: 01-12-2025 Annual PCP Team Chronic Disease Visit Annual PCP Team Chronic Disease Visit [facility] Start: 01-12-2025 End: 04-13-2025 Comprehensive metabolic 2000 panel - Serum or Plasma COMPREHENSIVE METABOLIC PANEL Lab Routine Liver function test abnormality Acute diastolic CHF (congestive heart failure) (HCC) Expected: 01/12/2025, Expires: 04/13/2025 [facility] Work Phone: Comment on above: Expected: 01/12/2025, Expires: Start: 01-12-2025 End: 01-12-2025 Patient encounter procedure 01/12/2025 10:00 AM EDT Office Visit [facility] [place] [address] [place] [place] [address] Aleksandar Jones MD [address] [place] [place] [address] follow up low sodium [facility] Comment on above: follow up low sodium Start: 01-07-2025 End: 01-07-2025 Patient encounter procedure 01/07/2025 1:30 PM EDT Appointment Mammogram [address] [place] [address] Encounter for screening mammogram for breast cancer [Z12.31] Mammogram Comment on above: Encounter for screening mammogram for br east cancer [Z12.31] Start: 01-04-2025 End: 04-05-2025 Basic metabolic 2000 panel - Serum or Plasma BASIC METABOLIC PANEL Lab Routine Hyponatremia Expected: 01/04/2025, Expires: 04/05/2025 [facility] Work Phone: Comment on above: Expected: 01/04/2025, Expires: Start: 01-04-2025 End: 04-05-2025 Osmolality of Urine OSMOLALITY URINE Lab Routine Hyponatremia Expected: 01/04/2025, Expires: 04/05/[address] [facility] Comment on above: Expected: 01/04/2025, Expires: Start: 01-04-2025 End: 04-05-2025 Sodium [Moles/volume] in Urine collected for unspecified duration SODIUM RANDOM URINE Lab Routine Hyponatremia Expected: 01/04/2025, Expires: 04/05/[address] [facility] Comment on above: Expected: 01/04/2025, Expires: Start: 12-31-2024 End: 04-01-2025 Basic metabolic 2000 panel - Serum or Plasma BASIC METABOLIC PANEL Lab Routine Hyponatremia Expected: 12/31/2024, Expires: 04/01/[address] [facility] Comment on above: Expected: 12/31/2024, Expires: Start: 12-31-2024 End: 04-01-2025 CBC W Auto Differential panel - Blood COMPLETE BLOOD COUNT AND DIFFERENTIAL Lab Routine Leukocytosis, unspecified type Expected: 12/31/2024, Expires: 04/01/2025 [facility] Work Phone: Comment on above: Expected: 12/31/2024, Expires: Start: 12-30-2024 End: 03-31-2025 HEP BE ANTIBODY HEP BE ANTIBODY Lab Routine Exposure to hepatitis B Expected: 12/30/2024, Expires: 03/31/[address] [facility] Comment on above: Expected: 12/30/2024, Expires: Start: 12-30-2024 End: 03-31-2025 Hepatitis B virus core Ab [Presence] in Serum HEPATITIS B CORE ANTIBODY TOTAL Lab Routine Exposure to hepatitis B Expected: 12/30/2024, Expires: 03/31/[address] [facility] Comment on above: Expected: 12/30/2024, Expires: Start: 12-30-2024 End: 03-31-2025 Hepatitis B virus core IgM Ab [Presence] in Serum HEPATITIS B CORE ANTIBODY IGM Lab Routine Exposure to hepatitis B Expected: 12/30/2024, Expires: 03/31/[address] [facility] Comment on above: Expected: 12/30/2024, Expires: Start: 12-30-2024 End: 03-31-2025 Hepatitis B virus DNA [Units/volume] in Serum HEPATITIS B VIRUS (HBV) DNA, QUANTITATIVE PCR, PLASMA/SERUM Lab Routine Exposure to hepatitis B Expected: 12/30/2024, Expires: 03/31/2025 [facility] Work Phone: Comment on above: Expected: 12/30/2024, Expires: Start: 12-30-2024 End: 03-31-2025 Hepatitis B virus e Ag [Presence] in Serum or Plasma by Immunoassay HEP BE ANTIGEN Lab Routine Exposure to hepatitis B Expected: 12/30/2024, Expires: 03/31/[address] [facility] Comment on above: Expected: 12/30/2024, Expires: Start: 12-30-2024 End: 03-31-2025 Hepatitis B virus surface Ab [Presence] in Serum HEPATITIS B SURFACE ANTIBODY Lab Routine Exposure to hepatitis B Expected: 12/30/2024, Expires: 03/31/[address] [facility] Comment on above: Expected: 12/30/2024, Expires: Start: 12-30-2024 End: 03-31-2025 Hepatitis B virus surface Ag [Presence] in Serum HEPATITIS B SURFACE ANTIGEN Lab Routine Exposure to hepatitis B Expected: 12/30/2024, Expires: 03/31/2025 [facility] Comment on above: Expected: 12/30/2024, Expires: 5 Start: 12-28-2024 End: 12-28-2025 HEP ACUTE PANEL/RNA [facility] Comment on above: Expected: 12/28/2024, Expires: Start: 12-28-2024 End: 12-28-2025 Hepatic function 2000 panel - Serum or Plasma [facility] Work Phone: Comment on above: Expected: 12/28/2024, Expires: Start: 12-28-2024 End: 12-28-2024 Patient encounter procedure [facility] [place] Comment on above: 3 month follow up Annual/2-4 week foll ow up Start: 12-21-2024 Bacteria identified in Blood by Culture Blood Culture [facility] Start: 12-21-2024 Bacteria identified in Urine by Culture Urine Culture [facility] Start: 12-21-2024 [facility] Start: 12-21-2024 End: 12-21-2024 [facility] Start: 12-07-2024 End: 12-07-2024 Patient encounter procedure 12/07/2024 10:00 AM EST Office Visit [facility] [place] [address] [place] [address] Radha Batista APRN.[employer] [address] [place] [address] [place] [address] 1 month follow up [facility] [place] Comment on above: 1 month follow up Start: 12-01-2024 End: 12-01-2024 Patient encounter procedure 12/01/2024 12:30 PM EST Office Visit Vasculary Surgery [address] [place] [address] Weakness of both lower extremities [R29.898] [facility] Comment on above: Weakness of both lower extremities [R29. 898] Start: 11-26-2024 End: 11-26-2024 Patient encounter procedure 11/26/2024 8:00 AM EST Office Visit [facility] [address] [place] [address] Weakness of both lower extremities [R29.898] [facility] Comment on above: Weakness of both lower extremities [R29. 898] Start: 11-17-2024 Glaucoma screening Dilated Retinal Exam [facility] Start: 11-12-2024 Patient discharge [facility] Start: 11-11-2024 [facility] Start: 11-11-2024 Physiotherapy of chest [facility] Start: 11-10-2024 Care planning and problem solving actions [facility] Start: 11-10-2024 Aspiration precautions [facility] Start: 11-10-2024 Assessment of risk of venous thromboembolism [facility] Start: 11-10-2024 Care regimes management [facility] Start: 11-10-2024 Continuous positive airway pressure ventilation treatment [facility] Start: 11-10-2024 Insertion of catheter into peripheral vein [facility] Start: 11-10-2024 Measuring intake and output [facility] Start: 11-10-2024 Notification of physician [facility] Start: 11-10-2024 Oxygen therapy [facility] Start: 11-10-2024 Providing care according to standard [facility] Start: 11-10-2024 Provision of activity privileges [facility] Start: 11-10-2024 Referral to service [facility] Start: 11-10-2024 End: 11-10-2024 [facility] Start: 11-10-2024 Respiratory secretion precautions [facility] Start: 11-10-2024 Following clinical pathway protocol [facility] Start: 11-10-2024 Inhalation therapy procedure [facility] Start: 11-09-2024 Admission procedure [facility] Start: 11-09-2024 End: 02-08-2025 INFLUENZA A&B MOLECULAR (POC) INFLUENZA A&B MOLECULAR (POC) Microbiology Routine URI, acute Expected: 11/09/2024, Expires: 02/08/2025 [facility] Work Phone: Comment on above: Expected: 11/09/2024, Expires: Start: 11-05-2024 Annual PCP Team Chronic Disease Visit Annual PCP Team Chronic Disease Visit [facility] Start: 11-05-2024 End: 02-04-2025 Basic metabolic 2000 panel - Serum or Plasma BASIC METABOLIC PANEL Lab Routine Hyponatremia Expected: 11/05/2024, Expires: 02/04/2025 [facility] Work Phone: Comment on above: Expected: 11/05/2024, Expires: Start: 11-05-2024 BP Controlled (<130/80) BP Controlled (<130/80) [facility] Start: 11-05-2024 End: 02-04-2025 CBC W Auto Differential panel - Blood COMPLETE BLOOD COUNT AND DIFFERENTIAL Lab Routine Hyponatremia Expected: 11/05/2024, Expires: 02/04/[address] [facility] Comment on above: Expected: 11/05/2024, Expires: Start: 11-05-2024 Hepatitis B surface antibody level LDL Cholesterol [facility] Start: 11-02-2024 End: 02-01-2025 Aldolase [Enzymatic activity/volume] in Serum or Plasma [facility] Comment on above: Expected: 11/02/2024, Expires: Start: 11-02-2024 End: 02-01-2025 CBC W Auto Differential panel - Blood [facility] Comment on above: Expected: 11/02/2024, Expires: Start: 11-02-2024 End: 02-01-2025 Comprehensive metabolic 2000 panel - Serum or Plasma [facility] Comment on above: Expected: 11/02/2024, Expires: Start: 11-02-2024 End: 02-01-2025 Creatine kinase [Enzymatic activity/volume] in Serum or Plasma [facility] Comment on above: Expected: 11/02/2024, Expires: Start: 11-02-2024 End: 02-01-2025 Hemoglobin A1c in Blood [facility] Work Phone: Comment on above: Expected: 11/02/2024, Expires: Start: 11-02-2024 End: 02-01-2025 LIPID PANEL, NONFASTING [facility] Comment on above: Expected: 11/02/2024, Expires: Start: 10-14-2024 [facility] Start: 10-13-2024 Medicare Advantage Annual Wellness Visit Medicare Advantage Annual Wellness Visit [facility] Start: 09-28-2024 End: 09-28-2024 Patient encounter procedure 09/28/2024 1:00 PM EST Office Visit [facility] [place] [address] [place] [address] Radha Batista APRN.[employer] [address] [place] [address] 3 month follow up [facility] Comment on above: 3 month follow up Start: 09-22-2024 BP Controlled (<130/80) BP Controlled (<130/80) [facility] in Start: 09-20-2024 End: 09-20-2024 Patient encounter procedure Cardiology Comment on above: 1 yr follow up 3 month follow up Start: 09-19-2024 Annual PCP Team Chronic Disease Visit Annual PCP Team Chronic Disease Visit [facility] Start: 09-07-2024 End: 09-07-2024 Patient encounter procedure 09/07/2024 10:00 AM EST Office Visit [facility] [place] [address] [place] [address] Shelia Salmon APRN.[employer] [address] [place] [address] 2 week f/u [facility] [place] Comment on above: 2 week f/u Start: 09-02-2024 Hemoglobin A1c measurement HbA1C [facility] Start: 07-06-2024 End: 10-05-2024 25-hydroxyvitamin D3 [Mass/volume] in Serum or Plasma VITAMIN D 25 HYDROXY Lab Routine Vitamin D deficiency Expected: 07/06/2024, Expires: 10/05/[address] [facility] Comment on above: Expected: 07/06/2024, Expires: Start: 07-06-2024 End: 10-05-2024 CBC W Auto Differential panel - Blood COMPLETE BLOOD COUNT AND DIFFERENTIAL Lab Routine Fatigue, unspecified type Expected: 07/06/2024, Expires: 10/05/2024 [facility] Work Phone: Comment on above: Expected: 07/06/2024, Expires: Start: 07-06-2024 End: 10-05-2024 Comprehensive metabolic 2000 panel - Serum or Plasma COMPREHENSIVE METABOLIC PANEL Lab Routine Uncontrolled type 2 diabetes mellitus with hyperglycemia (HCC) Fatigue, unspecified type Primary hypertension Pure hypercholesterolemia Expected: 07/06/2024, Expires: 10/05/[address] [facility] Comment on above: Expected: 07/06/2024, Expires: Start: 07-06-2024 End: 10-05-2024 Hemoglobin A1c in Blood HEMOGLOBIN A1C Lab Routine Uncontrolled type 2 diabetes mellitus with hyperglycemia (HCC) Expected: 07/06/2024, Expires: 10/05/[address] [facility] Comment on above: Expected: 07/06/2024, Expires: Start: 07-06-2024 End: 10-05-2024 Lipid 1996 panel - Serum or Plasma LIPID PANEL BASIC Lab Routine Pure hypercholesterolemia Expected: 07/06/2024, Expires: 10/05/[address] [facility] Comment on above: Expected: 07/06/2024, Expires: Start: 07-06-2024 End: 10-05-2024 Thyrotropin [Units/volume] in Serum or Plasma THYROID STIMULATING HORMONE Lab Routine Fatigue, unspecified type Expected: 07/06/2024, Expires: 10/05/[address] [facility] Comment on above: Expected: 07/06/2024, Expires: Start: 06-30-2024 End: 06-30-2024 Patient encounter procedure 06/30/2024 8:40 AM EDT Office Visit [facility] [place] [address] [place] [address] Radha Batista, ADIEL.[employer]ER [address] [facility] [place] [address] 3 month follow up [facility] [place] Comment on above: 3 month follow up Start: 06-13-2024 Influenza [facility] Start: 05-05-2024 Hemoglobin A1c measurement HbA1C [facility] Start: 05-04-2024 End: 05-04-2024 Patient encounter procedure 05/04/2024 9:00 AM EDT Office Visit [facility] [place] [address] [place] [address] Radha Batista APRN.[employer] [address] [place] [address] 6 month follow up [facility] [place] Comment on above: 6 month follow up Start: 04-29-2024 ANNUAL PCP TEAM CHRONIC DISEASE VISIT ANNUAL PCP TEAM CHRONIC DISEASE VISIT [facility] Start: 04-29-2024 Hepatitis B surface antibody level LDL CHOLESTEROL [facility] Start: 04-01-2024 End: 04-01-2024 ambulatory 04/01/2024 10:00 AM EDT OT/PT/Speech Visit [facility] [address] [place] [address] Long Davis, PT [address] [place] [address] R29.898 (ICD-10-CM) - Leg weakness, bilateral [facility] Comment on above: R29.898 (ICD-10-CM) - Leg weakness, bila teral Start: 03-30-2024 End: 03-30-2024 ambulatory 03/30/2024 11:30 AM EDT OT/PT/Speech Visit [facility] [address] [place] [address] Long Davis, PT [address] [place] [address] R29.898 (ICD-10-CM) - Leg weakness, bilateral [facility] Comment on above: R29.898 (ICD-10-CM) - Leg weakness, bila teral Start: 03-30-2024 End: 03-30-2024 Patient encounter procedure 03/30/2024 8:40 AM EDT Office Visit [facility] [place] [address] [place] [address] Radha Batista APRN.[employer] [address] [place] [address] Medication Review [facility] [place] Comment on above: Medication Review Start: 03-25-2024 End: 03-25-2024 ambulatory 03/25/2024 11:45 AM EDT OT/PT/Speech Visit [facility] [address] [place] [address] Jaci Brady, STRESS ANALYST [address] [place] [address] R29.898 (ICD-10-CM) - Leg weakness, bilateral [facility] Comment on above: R29.898 (ICD-10-CM) - Leg weakness, bila teral Start: 03-23-2024 End: 03-23-2024 ambulatory 03/23/2024 10:45 AM EDT OT/PT/Speech Visit [facility] [address] [place] [address] Long Davis, PT [address] [place] [address] R29.898 (ICD-10-CM) - Leg weakness, bilateral [facility] Comment on above: R29.898 (ICD-10-CM) - Leg weakness, bila teral Start: 03-19-2024 End: 03-19-2024 Patient encounter procedure 03/19/2024 8:40 AM EDT Office Visit [facility] [place] [address] [place] [address] Radha Batista APRN.[employer] [address] [place] [address] Anxiety/ weakness in legs. [facility] [place] Comment on above: Anxiety/ weakness in legs. Start: 03-18-2024 End: 03-18-2024 ambulatory 03/18/2024 11:45 AM EDT OT/PT/Speech Visit [facility] [address] [place] [address] Jaci Brady, STRESS ANALYST [address] [place] [address] R29.898 (ICD-10-CM) - Leg weakness, bilateral [facility] Comment on above: R29.898 (ICD-10-CM) - Leg weakness, bila teral Start: 03-16-2024 End: 03-16-2024 ambulatory 03/16/2024 11:30 AM EDT OT/PT/Speech Visit [facility] [address] [place] [address] Long Davis, PT [address] [place] [address] R29.898 (ICD-10-CM) - Leg weakness, bilateral [facility] Comment on above: R29.898 (ICD-10-CM) - Leg weakness, bila teral Start: 03-05-2024 End: 06-04-2024 CBC W Auto Differential panel - Blood COMPLETE BLOOD COUNT AND DIFFERENTIAL Lab Routine Thrombocytopenia (HCC) Expected: 03/05/2024, Expires: 06/04/2024 [facility] Work Phone: Comment on above: Expected: 03/05/2024, Expires: Start: 03-05-2024 End: 06-04-2024 Hepatic function 2000 panel - Serum or Plasma HEPATIC FUNCTION PNL Lab Routine Elevated liver enzymes Expected: 03/05/2024, Expires: 06/04/[address] [facility] Comment on above: Expected: 03/05/2024, Expires: Start: 03-04-2024 End: 03-04-2024 ambulatory 03/04/2024 11:45 AM EDT OT/PT/Speech Visit [facility] [address] [place] [address] Jaci Brady, STRESS ANALYST [address] [place] [address] R29.898 (ICD-10-CM) - Leg weakness, bilateral [place] [facility] Physical Therapy Comment on above: R29.898 (ICD-10-CM) - Leg weakness, bila teral Start: 03-02-2024 End: 03-02-2024 ambulatory 03/02/2024 2:45 PM EDT OT/PT/Speech Visit [facility] [address] [place] [address] Long Davis, PT [address] [place] [address] R29.898 (ICD-10-CM) - Leg weakness, bilateral [facility] Comment on above: R29.898 (ICD-10-CM) - Leg weakness, bila teral Start: 03-02-2024 End: 06-01-2024 Bacteria identified in Urine by Culture [facility] Work Phone: Comment on above: Expected: 03/02/2024, Expires: Start: 03-02-2024 End: 03-02-2024 Patient encounter procedure 03/02/2024 8:40 AM EDT Office Visit [facility] [address] [place] [address] Radha Batista APRN.[employer] [address] [place] [address] Medication Review [facility] Comment on above: Medication Review Start: 02-26-2024 End: 02-26-2024 ambulatory 02/26/2024 10:00 AM EDT OT/PT/Speech Visit [facility] [address] [place] [address] Long Davis, PT [address] [place] [address] R29.898 (ICD-10-CM) - Leg weakness, bilateral [facility] Comment on above: R29.898 (ICD-10-CM) - Leg weakness, bila teral Start: 02-24-2024 End: 02-24-2024 ambulatory 02/24/2024 11:00 AM EDT OT/PT/Speech Visit [facility] [address] [place] [address] Jaci Brady, STRESS ANALYST [address] [place] [address] R29.898 (ICD-10-CM) - Leg weakness, bilateral [facility] Comment on above: R29.898 (ICD-10-CM) - Leg weakness, bila teral Start: 02-19-2024 End: 02-19-2024 ambulatory 02/19/2024 9:15 AM EDT OT/PT/Speech Visit [facility] [address] [place] [id number] [address] murcia, PT [address] [place] [address] R29.898 (ICD-10-CM) - Leg weakness, bilateral [facility] Comment on above: R29.898 (ICD-10-CM) - Leg weakness, bila teral Start: 02-17-2024 End: 02-17-2024 ambulatory 02/17/2024 8:45 AM EDT OT/PT/Speech Visit [facility] [address] [place] [address] Jaci Brady, STRESS ANALYST [address] [place] [address] R29.898 (ICD-10-CM) - Leg weakness, bilateral [facility] Comment on above: R29.898 (ICD-10-CM) - Leg weakness, bila teral Start: 02-12-2024 End: 02-12-2024 ambulatory 02/12/2024 9:30 AM EDT OT/PT/Speech Visit [facility] [address] [place] [address] Jaci Brady, STRESS ANALYST [address] [place] [address] R29.898 (ICD-10-CM) - Leg weakness, bilateral [facility] Comment on above: R29.898 (ICD-10-CM) - Leg weakness, bila teral Start: 02-10-2024 End: 02-10-2024 ambulatory 02/10/2024 2:45 PM EDT OT/PT/Speech Visit [facility] [address] [place] [address] Long Davis, PT [address] [place] [address] R29.898 (ICD-10-CM) - Leg weakness, bilateral [facility] Comment on above: R29.898 (ICD-10-CM) - Leg weakness, bila teral Start: 02-05-2024 End: 02-05-2024 ambulatory 02/05/2024 8:45 AM EDT OT/PT/Speech Visit [facility] [address] [place] [address] Jaci Brady, STRESS ANALYST [address] [place] [address] R29.898 (ICD-10-CM) - Leg weakness, bilateral [facility] Comment on above: R29.898 (ICD-10-CM) - Leg weakness, bila teral Start: 02-03-2024 Shingrix Vaccine (2 of 2) Shingrix Vaccine (2 of 2) [facility] Start: 12-21-2023 ANNUAL PCP TEAM CHRONIC DISEASE VISIT ANNUAL PCP TEAM CHRONIC DISEASE VISIT [facility] Start: 12-13-2023 [facility] Start: 2023 RSV Vaccine (1 - 1-dose 60+ series) RSV Vaccine (1 - 1-dose 60+ series) [facility] Start: 10-30-2023 Hemoglobin A1c/Hemoglobin.total in Blood HBA1C [facility] Start: 10-13-2023 Behavioral Health Screening Behavioral Health Screening [facility] Start: 10-13-2023 Depression Assessment Depression Assessment [facility] Start: 09-17-2023 Hepatitis C antibody, confirmatory test DILATED RETINAL EXAM [facility] Start: 08-28-2023 ANNUAL PCP TEAM CHRONIC DISEASE VISIT ANNUAL PCP TEAM CHRONIC DISEASE VISIT [facility] Start: 08-21-2023 Hepatitis B surface antibody level LDL CHOLESTEROL [facility] Start: 08-18-2023 Blood chemistry [facility] Start: 08-17-2023 Blood chemistry [facility] Start: 08-16-2023 Patient discharge [facility] Start: 08-15-2023 Following clinical pathway protocol [facility] Start: 08-14-2023 Assessment of risk of venous thromboembolism [facility] Start: 08-14-2023 Bacteria identified in Sputum by Culture [facility] Start: 08-14-2023 Care regimes management [facility] Start: 08-14-2023 Continuous positive airway pressure ventilation treatment [facility] Start: 08-14-2023 Fall prevention [facility] Start: 08-14-2023 Incentive spirometry [facility] Start: 08-14-2023 Inhalation therapy procedure [facility] Start: 08-14-2023 Insertion of catheter into peripheral vein [facility] Start: 08-14-2023 Introduction of urinary catheter [facility] Start: 08-14-2023 Measuring intake and output [facility] Start: 08-14-2023 Notification of physician [facility] Start: 08-14-2023 Oxygen therapy [facility] Start: 08-14-2023 Providing care according to standard [facility] Start: 08-14-2023 Provision of activity privileges [facility] Start: 08-14-2023 Referral to occupational therapist [facility] Start: 08-14-2023 Referral to service [facility] Start: 08-14-2023 [facility] Start: 08-14-2023 Gas panel - Arterial blood [facility] Start: 08-14-2023 Hospital admission, emergency, from emergency room, medical nature [facility] Start: 08-14-2023 Verification routine [facility] Start: 08-14-2023 Admission procedure [facility] Start: 08-14-2023 [facility] Start: 08-14-2023 Respiratory secretion precautions [facility] Start: 08-14-2023 Respiratory Panel (PCR) Respiratory Panel (PCR) [facility] Start: 06-13-2023 Covid-19 Vaccine () Covid-19 Vaccine () [facility] Start: 06-13-2023 Influenza vaccination [facility] Start: 04-29-2023 End: 06-29-2023 Bacteria identified in Urine by Culture [facility] Work Phone: Comment on above: Expected: 04/29/2023, Expires: 3 Start: 04-29-2023 End: 06-29-2023 Comprehensive metabolic 2000 panel - Serum or Plasma [facility] Work Phone: Comment on above: Expected: 04/29/2023, Expires: 3 Start: 04-29-2023 End: 06-29-2023 Hemoglobin A1c in Blood [facility] Work Phone: Comment on above: Expected: 04/29/2023, Expires: 3 Start: 04-29-2023 End: 06-29-2023 LIPID PANEL, NONFASTING [facility] Work Phone: Comment on above: Expected: 04/29/2023, Expires: 3 Start: 04-29-2023 End: 06-29-2023 Magnesium [Mass/volume] in Serum or Plasma [facility] Work Phone: Comment on above: Expected: 04/29/2023, Expires: 3 Start: 04-29-2023 End: 06-29-2023 Thyrotropin [Units/volume] in Serum or Plasma [facility] Work Phone: Comment on above: Expected: 04/29/2023, Expires: 3 Start: 04-29-2023 End: 06-29-2023 Thyroxine (T4) free [Mass/volume] in Serum or Plasma [facility] Work Phone: Comment on above: Expected: 04/29/2023, Expires: 3 Start: 04-29-2023 End: 06-29-2023 Urinalysis complete panel - Urine [facility] Work Phone: Comment on above: Expected: 04/29/2023, Expires: 3 Start: 04-18-2023 Influenza vaccination LUNG CANCER SCREENING [facility] Start: 04-18-2023 Screening for malignant neoplasm of lung Lung Cancer Screening [facility] Start: 03-27-2023 ANNUAL PCP TEAM CHRONIC DISEASE VISIT ANNUAL PCP TEAM CHRONIC DISEASE VISIT [facility] Start: 02-18-2023 Hemoglobin A1c/Hemoglobin.total in Blood HBA1C [facility] Start: 01-30-2023 ANNUAL PCP TEAM CHRONIC DISEASE VISIT ANNUAL PCP TEAM CHRONIC DISEASE VISIT [facility] Start: 01-14-2023 Adult depression screening assessment DEPRESSION SCREENING [facility] Start: 01-14-2023 ANNUAL PCP TEAM CHRONIC DISEASE VISIT ANNUAL PCP TEAM CHRONIC DISEASE VISIT [facility] Start: 01-13-2023 Urine microalbumin profile [facility] Start: 10-26-2022 Hepatitis C antibody, confirmatory test DILATED RETINAL EXAM [facility] Start: 10-13-2022 DEPRESSION ASSESSMENT DEPRESSION ASSESSMENT [facility] Start: 09-26-2022 ANNUAL PCP TEAM CHRONIC DISEASE VISIT ANNUAL PCP TEAM CHRONIC DISEASE VISIT [facility] Start: 08-13-2022 3 comp foot exam completed DIABETIC FOOT EXAM [facility] Start: 08-13-2022 Diabetic foot examination Diabetic Foot Exam [facility] Start: 06-27-[address] [facility] Start: 06-27-2022 Screening for malignant neoplasm of breast Mammogram Screening [facility] Start: 06-24-2022 COVID-19 VACCINE (5 - Booster for Moderna series) COVID-19 VACCINE (5 - Booster for Moderna series) [facility] Start: 06-13-2022 Influenza vaccination INFLUENZA (#1) [facility] Start: 06-05-2022 Suicide precautions [facility] Work Phone: Start: 06-05-2022 Consultation [facility] Work Phone: Start: 01-14-2022 End: 03-16-2022 ALBUMIN/CREAT RATIO RND UR ALBUMIN/CREAT RATIO RND UR Lab Routine Type 2 diabetes mellitus with diabetic nephropathy, with long-term current use of insulin (HCC) Expected: 01/14/2022, Expires: 03/16/2022 [facility] Work Phone: Comment on above: Expected: 01/14/2022, Expires: 2 Start: 01-14-2022 End: 03-16-2022 Basic metabolic 2000 panel - Serum or Plasma BASIC METABOLIC PNL Lab Routine Water intoxication Expected: 01/14/2022, Expires: 03/16/2022 [facility] Work Phone: Comment on above: Expected: 01/14/2022, Expires: 2 Start: 01-14-2022 End: 03-16-2022 Hemoglobin A1c/Hemoglobin.total in Blood HGB A1C Lab Routine Type 2 diabetes mellitus with diabetic nephropathy, with long-term current use of insulin (HCC) Expected: 01/14/2022, Expires: 03/16/2022 [facility] Work Phone: Comment on above: Expected: 01/14/2022, Expires: 2 Start: 01-14-2022 End: 03-16-2022 LIPID PANEL BASIC LIPID PANEL BASIC Lab Routine Type 2 diabetes mellitus with diabetic nephropathy, with long-term current use of insulin (HCC) Expected: 01/14/2022, Expires: 03/16/2022 [facility] Work Phone: Comment on above: Expected: 01/14/2022, Expires: 2 Start: 01-14-2022 End: 03-16-2022 VITAMIN D 25 HYDROXY VITAMIN D 25 HYDROXY Lab Routine Vitamin D deficiency Expected: 01/14/2022, Expires: 03/16/2022 [facility] Work Phone: Comment on above: Expected: 01/14/2022, Expires: 2 Start: 01-02-2022 COVID-19 VACCINE (4 - Booster for Moderna series) COVID-19 VACCINE (4 - Booster for Moderna series) [facility] Start: 11-13-2021 Influenza vaccination LUNG CANCER SCREENING [facility] Start: 10-13-2021 DEPRESSION ASSESSMENT DEPRESSION ASSESSMENT [facility] Start: 07-26-2021 Hepatitis B surface antibody level LDL CHOLESTEROL [facility] Start: 05-23-2021 Hemoglobin A1c/Hemoglobin.total in Blood HBA1C [facility] Start: 04-18-2021 3 comp foot exam completed DIABETIC FOOT EXAM [facility] Start: 08-05-2020 Adult depression screening assessment DEPRESSION SCREENING [facility] Start: 06-13-2020 Pneumococcal vaccination [facility] Start: 01-13-2019 FECAL OCCULT BLOOD FECAL OCCULT BLOOD [facility] Start: 01-13-2019 Screening for malignant neoplasm of colon Fecal Occult Blood [facility] Start: 08-08-2015 PNEUMOCOCCAL (2 - PCV) PNEUMOCOCCAL (2 - PCV) [facility] Start: 08-08-2015 Pneumococcal vaccination Pneumococcal Vaccine (2 - PCV) [facility] Start: 2013 SHINGRIX VACCINE (1 of 2) SHINGRIX VACCINE (1 of 2) [facility] Start: 2008 COLOGUARD (FIT-DNA) COLOGUARD (FIT-DNA) [facility] Start: [address] COLONOGRAPHY [facility] Start: 2008 Screening for malignant neoplasm of colon [facility] Start: 2008 SIGMOIDOSCOPY SIGMOIDOSCOPY [facility] Start: 1982 HEPATITIS B (1 of 3 - Risk 3-dose series) HEPATITIS B (1 of 3 - Risk 3-dose series) [facility] Start: 1981 Anxiety Screening Anxiety Screening [facility] Start: 1981 BP Controlled (<130/80) BP Controlled (<130/80) [facility] Start: 1981 Depression Screening Depression Screening [facility] Start: 1981 HIV SCREENING HIV SCREENING [facility] Start: 1981 HIV screening HIV Screening [facility] Start: 1981 SPIROMETRY SPIROMETRY [facility] Start: 1963 HEPATITIS B (1 of 3 - 3-dose series) HEPATITIS B (1 of 3 - 3-dose series) [facility] BACTERIAL VAGINOSIS NAAT BACTERIAL VAGINOSIS NAAT Lab Routine Itching in the vaginal area 08/29/2023 3:29 PM EST [facility] Work Phone: DIONICIO/TRICHOMONAS NAAT DIONICIO/TRICHOMONAS NAAT Lab Routine Itching in the vaginal area 08/29/2023 3:29 PM EST [facility] Work Phone: CBC W Auto Different ial panel - Blood CBC + DIFF Lab Routine Weight loss 04/29/2023 3:51 PM EDT [facility] Work Phone: End: 07-23-2025 DBT Breast - bilateral screening FRANNY SCREENING [facility] Radiology Routine Encounter for screening mammogram for breast cancer 1 Occurrences starting 06/23/2024 until 07/23/2025 [facility] Work Phone: Comment on above: 1 Occurrences starting 06/23/2024 until 07/23/2025 DBT Breast - bilater al screening [facility] SCREEN[facility] [place] Radiology Routine Encounter for screening mammogram for breast cancer 01/19/2025 2:51 PM EDT [facility] Work Phone: End: 04-29-2024 ECG COMPLETE ECG COMPLETE ECG Routine Chest pain, unspecified type 1 Occurrences starting 04/29/2023 until 04/29/2024 [facility] Work Phone: Comment on above: 1 Occurrences starting 04/29/2023 until 04/29/2024 ECG COMPLETE ECG COMPLETE ECG Routine Primary hypertension Pure hypercholesterolemia SVT (supraventricular tachycardia) (HCC) Tachycardia 09/20/2024 12:57 PM EST [facility] Work Phone: Hemoglobin.gastroint est inal.lower [Presence] in Stool by Immunoassay FECAL OCCULT BLOOD TEST Lab Routine Weight loss Ordered: 04/29/2023 [facility] Work Phone: Comment on above: Ordered: 04/29/2023 End: 08-14-2024 FRANNY SCREENING FRANNY SCREENING Radiology Routine Encounter for screening mammogram for breast cancer 1 Occurrences starting 07/16/2023 until 08/14/2024 [facility] Work Phone: Comment on above: 1 Occurrences starting 07/16/2023 until 08/14/2024 NM CARDIAC PERF STRESS/PHARM NM CARDIAC PERF STRESS/PHARM Radiology Routine Chest pain, unspecified type Ordered: 04/29/2023 [facility] Work Phone: Comment on above: Ordered: 04/29/2023 Patient Education [facility] Work Phone: Patient referral [facility] Work Phone: Respiratory pathogen s DNA and RNA panel - Respiratory specimen by LUIS M with probe detection [facility] End: 09-06-2023 Screening mammography bi 2-view breast inc cad FRANNY SCREENING Radiology Routine Encounter for screening mammogram for breast cancer 1 Occurrences starting 08/07/2022 until 09/06/2023 [facility] Work Phone: Comment on above: 1 Occurrences starting 08/07/2022 until 09/06/2023 Urine culture [facility] End: 11-02-2025 US.doppler Extremity arteries - bilateral for physiologic artery study PVR ANK PRESS ASHE[facility] Vascular Lab Routine Weakness of both lower extremities 1 Occurrences starting 11/02/2024 until 11/02/[address] [facility] Comment on above: 1 Occurrences starting 11/02/2024 until 11/02/2025 [facility] Immunizations Immunization Date Immunization Notes Care Provider Fa [facility] 06-28-2025 influenza, seasonal, injectable, preservative free Aleksandar Jones MD Work Phone: [facility] 09-08-2024 pneumococcal conjuga te (PCV20) vaccine, 20 valent (PREVNAR 20) Radha Batista APRN.[employer]SEMBLER Work Phone: [facility] 09-08-2024 pneumococcal Conjuga te, unspecified formulation Radha Batista APRN.[employer] ASSEMBLER Work Phone: [facility] Work Phone: 07-06-2024 COVID-19 vaccine, ag e 12+ yr (PFIZER-BIONTAppnique) Radha Batista EDGE BANDING OFF BEARER.[employer] ASSEMBLER Work Phone: [facility] 07-06-2024 influenza, seasonal, injectable Radha Haagen EDGE B[employer]ING OFF BEARER.[employer] ASSEMBLER Work Phone: [facility] 07-06-2024 influenza virus vaccine, unspecified formulation Aleksandar Jones MD Work Phone: [facility] 12-09-2023 respiratory syncytia l virus (RSV) vaccine, bivalent (ABRYSVO) Radha Batista EDGE B[employer]ING OFF BEARER.[employer] ASSEMBLER Work Phone: [facility] 12-09-2023 zoster vaccine recombinant Radha Batista EDGE BANDING OFF BEARER.STE[employer]UR[employer] ASSEMBLER Work Phone: [facility] 11-05-2023 COVID-19 vaccine, ag e 12+ yr, season (PFIZER-BIONTAppnique) Meredith Moore EDGE B[employer]ING OFF BEARER.[employer]UR[employer] ASSEMBLER Work Phone: [facility] 11-05-2023 influenza, injectabl e, quadrivalent, contains preservative Meredith Moore EDGE B[employer]ING OFF BEARER.[employer] ASSEMBLER Work Phone: [facility] 11-05-2023 influenza virus vaccine, unspecified formulation Radha Batista EDGE B[employer]ING OFF BEARER.[employer] ASSEMBLER Work Phone: [facility] 08-22-2022 influenza, injectabl e, quadrivalent, preservative free Adriano Menezes EDGE B[employer]ING OFF BEARER.[employer]SEMBLER Work Phone: [facility] 08-22-2022 influenza virus vaccine, unspecified formulation Fuentes Renee MD Work Phone: [facility] 06-29-2021 influenza, injectabl e, quadrivalent, contains preservative Aleksandar Jones MD Work Phone: [facility] 11-29-2020 COVID-19 vaccine, fu ll dose (MODERNA) Aleksandar Jones MD Work Phone: [facility] 11-01-2020 COVID-19 vaccine, fu ll dose (MODERNA) Aleksandar Jones MD Work Phone: [facility] 07-19-2020 influenza, injectabl e, quadrivalent, contains preservative Aleksandar Jones MD Work Phone: [facility] 10-18-2019 Influenza virus vaccine [facility] 10-18-2019 influenza, injectabl e, quadrivalent, contains preservative Aleksandar Jones MD Work Phone: [facility] Work Phone: 06-13-2019 influenza, seasonal, injectable Adriano Pendlebury EDGE B[employer]ING OFF BEARER.[employer] ASSEMBLER Work Phone: [facility] 06-13-2019 pneumococcal polysaccharide vaccine, 23 valent Radha Hakevin EDGE B[employer]ING OFF BEARER.[employer] ASSEMBLER Work Phone: [facility] 07-18-2018 tetanus toxoid, redu regino diphtheria toxoid, and acellular pertussis vaccine, adsorbed [facility] 07-17-2018 Influenza virus vaccine [facility] 07-17-2018 influenza, injectabl e, quadrivalent, contains preservative Aleksandar Jones MD Work Phone: [facility] 08-18-2017 tuberculin skin test ; purified protein derivative solution, intradermal Aleksandar Jones MD Work Phone: [facility] 08-11-2017 tuberculin skin test ; purified protein derivative solution, intradermal Aleksandar Jones MD Work Phone: [facility] 07-14-2017 Influenza virus vaccine [facility] 07-14-2017 influenza, seasonal, injectable, preservative free Adriano Pendlebury EDGE B[employer]ING OFF BEARER.[employer] ASSEMBLER Work Phone: [facility] 06-23-2017 influenza, injectabl e, quadrivalent, preservative free Adriano Pendlebury EDGE B[employer]ING OFF BEARER.[employer] ASSEMBLER Work Phone: [facility] 07-04-2016 influenza, injectabl e, quadrivalent, contains preservative Aleksandar Jones MD Work Phone: [facility] 07-14-2015 influenza, injectabl e, quadrivalent, preservative free Adriano Pendlebury EDGE B[employer]ING OFF BEARER.[employer] ASSEMBLER Work Phone: [facility] 07-11-2015 influenza, injectabl e, quadrivalent, preservative free [facility] 07-11-2015 influenza, seasonal, injectable [facility] 07-11-2015 influenza, seasonal, injectable, preservative free Adriano Jenningslink EDGE B[employer]ING OFF BEARER.[employer] ASSEMBLER Work Phone: [facility] 08-15-2014 Influenza virus vaccine [facility] 08-15-2014 influenza, seasonal, injectable, preservative free Adriano Jenningslink EDGE B[employer]ING OFF BEARER.[employer] ASSEMBLER Work Phone: [facility] 08-15-2014 Pneumococcal Vaccine [facility] Work Phone: 08-15-2014 pneumococcal vaccine , unspecified formulation [facility] 08-08-2014 pneumococcal polysaccharide vaccine, 23 valent Aleksandar Jones MD Work Phone: [facility] 07-27-2014 influenza, seasonal, injectable Aleksandar Jones MD Work Phone: [facility] Work Phone: 01-13-2013 tetanus toxoid, redu regino diphtheria toxoid, and acellular pertussis vaccine, adsorbed Aleksandar Jones MD Work Phone: [facility] Work Phone: 08-05-2011 influenza virus vaccine, unspecified formulation Aleksandar Jones MD Work Phone: [facility] Work Phone: 08-22-2010 influenza virus vaccine, unspecified formulation Aleksandar Jones MD Work Phone: [facility] Work Phone: 1965 influenza, seasonal, injectable Aleksandar Jones MD Work Phone: [facility] Payers Date Payer Category Payer Unknown [id number] 2024 Unknown [id number] 2024 Self-pay [id number] 2024 Medicare (Managed Care) [id number]. [id number] 2024 Unknown [id number] 2020 Medicaid [id number] 2020 Medicare [id number] 2017 Medicaid [id number] 2016 Medicare [id number] 1990 Medicare [id number] 1989 Medicare [id number] Unknown [id number] Unknown [id number] 2.16.8 40.1.788597.3.579.2.462 Unknown [id number] 2.16.8 40.1.905129.3.579.2.462 Unknown [id number] 2.16.8 40.1.280372.3.579.2.462 Unknown [id number] 2.16.8 40.1.451633.3.579.2.462 Unknown [id number] 2.16.8 40.1.439281.3.579.2.462 Unknown [id number] 2.16.8 40.1.400078.3.579.2.462 Unknown [id number] 2.16.8 40.1.454146.3.579.2.462 Unknown [id number] 2.16.8 40.1.208004.3.579.2.462 Unknown [id number] 2.16.8 40.1.051900.3.579.2.462 Unknown [id number] 2.16.8 40.1.624408.3.579.2.462 Unknown [id number] 2.16.8 40.1.075114.3.579.2.462 Unknown [id number] 2.16.8 40.1.438965.3.579.2.462 Unknown [id number] 2.16.8 40.1.649677.3.579.2.462 Unknown [id number] 2.16.8 40.1.867956.3.579.2.462 Unknown [id number] 2.16.8 40.1.234612.3.579.2.462 Unknown [id number] 2.16.8 40.1.971770.3.579.2.462 Unknown [id number] 2.16.8 40.1.857752.3.579.2.462 Unknown [id number] 2.16.8 40.1.069792.3.579.2.462 Unknown [id number] 2.16.8 40.1.025068.3.579.2.462 Unknown [id number] 2.16.8 40.1.170149.3.579.2.462 Unknown [id number] 2.16.8 40.1.851768.3.579.2.462 Unknown [id number] 2.16.8 40.1.042946.3.579.2.462 Unknown [id number] 2.16.8 40.1.925070.3.579.2.462 Unknown [id number] 2.16.8 40.1.464991.3.579.2.462 Unknown [id number] 2.16.8 40.1.926975.3.579.2.462 Unknown [id number] 2.16.8 40.1.972179.3.579.2.462 Social History Date Type Detail Facility Start: 07-30-2021 End: 12-13-2023 Tobacco smoking status NHIS Unknown if ever smoked [facility] Start: 11-16-2019 None [facility] Start: 11-16-2019 Roommate [facility] Start: 09-10-2020 Non-smoker [facility] Start: 1965 Sex Assigned At Female W [facility] Start: 01-25-2014 End: 06-21-2025 Tobacco smoking status NHIS Ex-smoker [facility] Start: 01-11-1994 End: 01-11-2014 History of tobacco use Current smoker [facility] Start: 01-11-1994 End: 01-11-2014 History of tobacco use Cigarette Smoker [facility] Start: 01-25-2014 End: 03-12-2023 Cigarettes smoked current (pack per day) - Reported [address] [facility] Start: 01-25-2014 End: 07-06-2024 Tobacco use and exposure Smokeless tobacco non-user [facility] Start: 09-26-2021 End: 06-23-2025 Alcohol intake Current non-drinker of alcohol (finding) [facility] Start: 06-19-2018 History SDOH Alcohol Frequency [address] [facility] Start: 06-26-2018 History SDOH Social Connections Phone [address] [facility] Start: 06-26-2018 History SDOH Social Connections Get Together [address] [facility] Start: 06-26-2018 History SDOH Social Connections Living [address] [facility] Start: 06-26-2018 History SDOH Physica l Activity DPW [address] [facility] Start: 06-19-2018 End: 06-26-2018 History SDOH Physical Activity MPS [address] [facility] Start: 06-26-2018 Education [address] [facility] Start: 1965 Sex Assigned At Not on file [facility] Start: 09-18-2020 End: 08-08-2022 Exposure to SARS-CoV-2 (event) Not sure [facility] Start: 06-26-2018 End: 03-12-2023 Social connection and isolation panel [facility] Start: 09-13-2012 Attends Confucianist Services Not on file [facility] Are you now , , , , never or living with a partner? Never [facility] How often to you hav e a drink containing alcohol? Never [facility] Do you feel stress - tense, restless, nervous, or anxious, or unable to sleep at night because your mind is troubled all the time - these days [OSQ] Only a little [facility] (I/We) worried lawanda er (my/our) food would run out before (I/we) got money to buy more. Never true [facility] Start: 12-21-2024 End: 01-10-2025 Sex Female (finding) [facility] Medical Equipment Procedure Code Equipment Code Equipment Original Text Equipment Identifier Dates [id number], [id number], [id number], [id number], [id number], [id number], [id number], [id number], [id number], [id number], [id number], [id number], [id number], [id number], [id number], [id number], [id number] Start: 01-23-2015 End: 06-09-2024 Comment on above: [...] from the original. 04/27/18 A1C 7.5 at [facility] Personal health goal Comment on above: Formatting of this n ote might be different from the original. 04/27/18 A1C 7.5 at [facility] Functional Status Date Assessment Result Facility 11-12-2024 Functional status Bedrest [facility] Work Phone: 08-16-2023 Functional status Activity Abili ty Independent [facility] Work Phone: 08-15-2023 Functional status Ambulates [facility] Work Phone: 05-12-2015 Are you deaf, or do you have serious difficulty hearing No 05/12/2015 1:40 PM EDT Nelly Ceja Cma No [facility] 05-12-2015 Are you blind, or do you have serious difficulty seeing, even when wearing glasses No 05/12/2015 1:40 PM EDT Nelly Ceja Cma No [facility] 05-12-2015 Do you have serious difficulty walking or climbing stairs No 05/12/2015 1:40 PM EDT Nelly Ceja Cma No [facility] 05-12-2015 Do you have difficul ty dressing or bathing No 05/12/2015 1:40 PM EDT Nelly Ceja Cma No [facility] 05-12-2015 Because of a physica l, mental, or emotional condition, do you have difficulty doing errands alone such as visiting a physician's office or shopping No 05/12/2015 1:40 PM EDT Nelly Ceja Cma [facility] Mental Status Date Assessment Result Facility 06-23-2025 Cognitive function Voice/Name [facility] Work Phone: 11-12-2024 Cognitive function Voice/Name [facility] Work Phone: 08-16-2023 Cognitive function Voice/Name [facility] Work Phone: 05-12-2015 Because of a physica l, mental, or emotional condition, do you have serious difficulty concentrating, remembering, or making decisions No 05/12/2015 1:40 PM EDT Nelly Ceja Cma No [facility] Clinical Notes 08-06-2018 to 07-12-2025 Note Date & Type Note Facility 07-12-2025 Progress note [facility] 07-12-2025 Progress note Note Date/Time July 12, 2025 3:25pm [facility] [address] [place] [address] OFFICE VISIT Date of Service: 07/12/25 MR#: [id number] Acct: [id number] Name: BRENDA LE Shawanda Rep #: [id number] : 1965 Provider: MAKSIM Razo Age/Sex: 59/F [place] [facility] [place]: Signed Intake Vital Signs 06/23/25 09:36 Height 5 ft 1 in Intake Visit Reasons: Procedure F/U-Abdominal pain Chief Complaint: Loose stool Mental Health Case Manager Required: No Accompanied by: Self Is patient in pain?: No Allergies No Known Allergies Allergy (Verified 07/12/25 14:50) Medications ?Medication ?Instructions ?Recorded ?Confirmed ?Type cholecalciferol (vitamin D3) 25 1,000 unit PO DAILY ROSAS PPLEMENT 10/17/17 07/12/25 History mcg (1,000 unit) capsule (Vitamin D3) aspirin 325 mg tablet,delayed 325 mg PO DAILY@[facility] 07/22/18 07/12/25 History release potassium chloride 20 mEq 20 meq PO DAILY supplement 0 11/16/19 07/12/25 History tablet,extended release(part/cryst) clozapine 100 mg tablet 100 mg PO 4X/DAY SCHIZOPHREN IA 07/30/21 07/12/25 History empagliflozin 10 mg tablet 10 mg PO DAILY diabetes 07/12/25 History (Jardiance) furosemide 20 mg tablet 20 mg PO DAILY FLUID 1 07/12/25 History insulin glargine 100 unit/mL (3 60 unit subcut QHS DM 07/30/21 07/12/25 History mL) subcutaneous pen (Lantus Solostar U-100 Insulin) metoprolol succinate 25 mg 25 mg PO QHS HTN 07/30/21 0 07/12/25 History tablet,extended release 24 hr clonazepam 0.5 mg tablet 0.5 mg PO BID schizophrenia 06/05/22 07/12/25 History ferrous sulfate 325 mg (65 mg 325 mg PO BID anemia 07/12/25 History iron) tablet (Feosol) pramipexole 0.5 mg tablet 0.5 mg PO QHS restless legs 06/05/22 07/12/25 History haloperidol 2 mg tablet 2 mg PO QHS anxiety 08/14/23 07/12/25 History metformin 500 mg tablet,extended 1,000 mg PO BID Diabe janeth 08/14/23 07/12/25 History release 24 hr benztropine 0.5 mg tablet 0.5 mg PO BID tremors 07/12/25 History peg 3350-electrolytes 236 240 ml PO Q10M PRN #4,000 mL 12/13/23 07/12/25 Rx gram-22.74 gram-6.74 gram-5.86 gram solution (Golytely) docusate sodium 100 mg capsule 100 mg PO BID 11/09/24 07/12/25 History fluticasone furoate 100 1 inh inhalation DAILY 11/0907/12/25 History mcg-vilanterol 25 mcg/dose inhalation powder (Breo Ellipta) gabapentin 100 mg capsule 200 mg PO TID 11/09/2407/12 History guaifenesin 600 mg tablet, 1,200 mg PO DAILY 11/09/24 07/12/25 History extended release 12 hr (Mucus Relief ER) omega-3 fatty acids-fish oil 300 1 cap PO QHS 11/09/24 07/12/25 History mg-1,000 mg capsule paliperidone palmitate 234 mg/1.5 234 mg IM QHS 07/12/25 History mL intramuscular syringe ([facility]) acetaminophen 325 mg tablet 325 mg PO Q4H PRN pain 07/0707/12/25 History albuterol sulfate 2.5 mg/3 mL 2.5 mg inhalation 4X/DAY PRN PRN 06/21/25 07/12/25 History (0.083 %) solution for nebulization wheezing albuterol sulfate 90 mcg/actuation 2 puff inhalation Q 4H PRN 06/21/25 07/12/25 History aerosol inhaler shortness of breath or wheez ing aluminum-magnesium hydroxide 200 30 ml PO Q4H PRN dysp epsia 06/21/25 07/12/25 History mg-200 mg/5 mL oral suspension clonazepam 1 mg tablet 1 mg PO QHS 06/21/25 5 History insulin lispro 100 unit/mL 1 sliding scale dose subcut .CM 06/21/25 07/12/25 History subcutaneous solution (Humalog U-100 Insulin) omeprazole 20 mg capsule,delayed 20 mg PO BID 06/21/25 07/12/25 History release sucralfate 1 gram tablet (Carafate) 1 g PO BID #60 tab s 06/23/25 07/12/25 Rx ursodiol 250 mg tablet 250 mg PO BID #60 tabs 06/2307/12/25 Rx nabumetone 500 mg tablet 500 mg PO BID 07/12/2507/12 History PFSH Medical History Wears glasses Wears dentures Insulin dependent diabetes mellitus Back pain Gastric reflux Former smoker BiPAP (biphasic positive airway pressure) dependence Sleep apnea Shortness of breath on exertion History of edema Hypertension Obesity (BMI 30-39.9) Hyponatremia Leukocytosis Respiratory insufficiency COPD exacerbation Pneumonia LIDA on CPAP Obesity Anxiety and depression Type 2 diabetes mellitus COPD (chronic obstructive pulmonary disease) Restless leg syndrome GERD (gastroesophageal reflux disease) COPD exacerbation Schizophrenia HTN (hypertension) Hyperlipidemia Surgical History History of mandibular surgery History of cholecystectomy Family History Mother Heart disease Hypertension Father COPD (chronic obstructive pulmonary disease) Cancer Social History housing: other details: shelter. Smoking Status: Former smoker how long ago did patient quit smoking: Quit 10 years prior to 08/14/23 presentation, 2 ppd since teen until quit. alcohol intake: never substance use type: does not use HPI HPI Chief Complaint: Loose stool Details: BRENDA LE, is a 59 F who presents to the office today for follow-up. BGI establish 05/10/2025 pt presenting unaccompanied from assisted living facility. She [...] colonoscopy in the past but is unsure whenthis was. She has never had an EGD. EGD 06/23/2025 - Normal esophagus. - Chronic gastritis. Biopsied. - No gross lesions in the entire examined duodenum. - Several biopsies were obtained in the stomach. Colonoscopy 06/23/2025 - Diverticulosis in the recto-sigmoid colon, in the sigmoid colon and in the descending colon. - Redundant colon. - Congested mucosa at the splenic flexure, in the transverse colon, at the hepatic flexure and in the ascending colon. Biopsied. - Stool in the recto-sigmoid colon, in the sigmoid colon, in the descending colon, in the transverse colon, at the hepatic flexure, in the ascending colon and in the cecum. Pathology: Stomach with mild chronic inflammation and reactive changes negative for H. pylori. Esophagus benign squamous epithelium with fungal organisms morphologically compatible with Dionicio. Colon tubular adenoma and 1 fragment. OV 07/12/25 patient here today to follow-up from her endoscopies. Patient deniesabdominal pain, nausea, heartburn or vomiting. Patient does note she has had looser stool for many years. She has anal leakage when she passes gas. ROS Const Constitutional: No fatigue, fever(s) or weight change ENT ENT: No difficulty swallowing Gastro GI: Positive for excessive flatus and incontinent of stools; No abdominal pain, belching, bloating, change in bowel habits, change in stool character, coffee ground emesis, constipation, cramping, diarrhea, heartburn, difficulty swallowing, feeling full early, Vomiting blood/hematemesis, Blood in stool, loose stools, Black,tarry stools, nausea/dyspepsia, pain with swallowing,vomiting or other Musc Musculoskeletal: No joint pain Skin Skin: No yellowing of the eye or itchy eyes Psych Psychiatric: No anxiety and No depression Endo Endocrine: No fatigue or weight change Aller/Imm Allergy/Immunologic: No itchy eyes Sharad/Lymp Hematologic/Lymphatic: No easy bleeding or easy bruising Exam Const General: cooperative and comfortable Orientation: alert [facility] Head: normal to inspection Ears: hearing grossly normal bilaterally Nose: external nose normal Eyes General: appearance normal, both eyes and all related structures Neck Neck: normal visual inspection Chest Chest palpation & inspection: normal inspection of the chest Resp Effort & Inspection: normal respiratory effort GI Inspection: normal to inspection Assessment and Plan Assessment and Plan (1) Nausea: Status: Acute Plan: Malcolm is a 59-year-old female patient with past medical history of diabetes, COPD, schizophrenia and debility here today for follow-up after upper and lower endoscopy. Patient underwent endoscopies due to complaints of abdominal pain and nausea. EGD was consistent with chronic gastritis and as well as fungal organisms. This was treated with nystatin following her EGD. Patient was also started on Carafate and ursodiol at that time. Colonoscopy was negative but biopsy did show a tubular adenoma. Recommend repeat in 5 years. I reviewed these results with patient and also wrote a progress note to send back to her assisted living facility. Patient denying abdominal pain and nausea today. Chanceoejaspreet have complaints of looser stool which she notes has been going on for years. She is on metformin and therefore may be a side effect. I recommended adding a fiber supplement. - Reviewed results - Repeat colonoscopy in 5 years - Add daily fiber supplement - Follow-up as needed (2) Abdominal pain: Status: Acute Coding Level of Care Code Off vis,est,level 3 Diagnoses Nausea R11.0 Abdominal pain R10.9 07/12/25 1526 <Electronically signed by Joselyn SCHAEFFER> Date _ Joselyn SCHAEFFER Cosigner Signature: Date (if applicable) CC: ~ [email or web address] Work Phone: [phone] 668-246009-16-2025 Instructions* Patient Instructions* Aleksandar Jones MD - 06/28/2025 2:18 PM EDT We discussed your overall health and care plan: - Venous Insufficiency and Leg Swelling: - You need to wear compression stockings to help manage your leg swelling. I have sent a prescription for compression stockings to your pharmacy. - If you cannot get compression stockings, consider using [facility] as an alternative. - Cholesterol Management: - We are resuming Lipitor (10 mg) to help reduce your risk of heart disease. This prescription has been sent to your pharmacy. - If you experience any side effects, please let me know. - Fluid Intake and Sodium Levels: - You mentioned drinking too much juice recently. Please continue to monitor your fluid intake to avoid water intoxication. - We will check your sodium levels today with blood work to ensure they remain stable. - Blood Work: - We will perform blood tests today to check the following: - A1c (to monitor your blood sugar levels). - BMP (to assess fluid balance and sodium levels). - BNP (to evaluate heart function and rule out fluid buildup). - Thyroid function. - Magnesium and B12 levels (to monitor for potential effects of Prilosec). - Vaccines: - You will receive a flu shot today. - You may need a second shingles vaccine. Please check with the pharmacy where you received your first dose ([facility] or the [facility]) to schedule this. - Medications: - I will refill your Prilosec prescription. - Avoid adding turmeric supplements, as they are not necessary and could interact with your currentmedications. - Follow-Up: - I would like to see you back in 6 months for a follow-up visit. Please continue using your CPAP machine for sleep apnea and let me know if you experience any new or worsening symptoms. If you have any questions or concerns before your next visit, feel free to contact our office. documented in [facility] History of Present illness Narrative* Aleksandar Jones MD - 06/28/2025 2:05 PM EDT The patient is a 59-year-old female with anxiety disorder, hyperlipidemia, type 2 diabetes mellitus, obstructive sleep apnea, and chronic venous insufficiency, presenting for 6-month follow-up. HPI Anxiety: - Brenda Le continues to see psychiatry. - Brenda reports feeling "very tired during the day." Venous Insufficiency: - Brenda is not wearing compression stockings currently; needs to purchase a new pair. - Brenda reports leg pain and swelling. Hyponatremia: - Recent sodium level was 131 mEq/L in March. - History of excessive fluid intake; Brenda is currently drinking "too much juice." - Fluid restriction previously implemented. Hyperlipidemia: - Previously on Lipitor 10 mg, held by cardiology due to leg aches. Diabetes Mellitus: - Most recent A1c was 6.5% in March. Hepatitis B: - Questionable positive screen; ID suspected false positive. Sleep Apnea: - Brenda continues to use CPAP. - Followed by Dr. Ramirez. Vision: - Brenda's eyes have been burning for a long time; recently prescribed medication for relief. - Last eye exam was in April or May. MEDICATIONS: Current Outpatient Medications Medication Sig sucralfate (CARAFATE) 1 gram tablet Take 1 g by mouth two times a day. cloZAPine (CLOZARIL) 100 mg tablet Before meals and at bedtime haloperidol (HALDOL) 2 mg tablet Take 1 tablet by mouth daily at bedtime. omeprazole (PRILOSEC) 20 mg capsule Take 1 capsule by mouth two times a day. 1/2 hr before meal. TRELEGY ELLIPTA 100-62.5-25 mcg inhalation powder Inhale 1 puff as instructed once daily. ursodiol (PAO) 250 mg tablet Take 250 mg by mouth two times a day. gabapentin (NEURONTIN) 100 mg capsule Take two capsules three times daily. acetaminophen (TYLENOL) 325 mg tablet Take 2 [...] two times a day. TAKE WITH FOOD empagliflozin (JARDIANCE) 10 mg tablet Take 1 tablet by mouth daily with breakfast. insulin glargine (LANTUS SOLOSTAR U-100 INSULIN) 100 unit/mL (3 mL) Inject 60 Units subcutaneously daily at bedtime. benztropine (COGENTIN) 0.5 mg tablet Take 0.5 mg by mouth two times a day. albuterol (PROVENTIL) 2.5 mg /3 mL (0.083 %) nebulizer solution Use 2.5 mg via nebulizer every 4 hours as needed. Every morning furosemide (LASIX) 20 mg tablet Take 1 [...] take 1 tablet by mouth every evening polyethylene glycol 3350 (MIRALAX) 17 gram packet Take 1 Packet by mouth once daily. Dissolve dose in 4 - 8 ounces of liquid and take as directed. pramipexole (MIRAPEX) 0.5 mg tablet Take 0.5 tablets by mouth daily at bedtime. insulin lispro (HUMALOG KWIKPEN) 100 unit/mL Sig: Administer Lispro insulin per scale AC breakfast morning, AC lunch, AC dinner as follows with glucose 150-199 2u, 200-249 3u, 250-299 5u, 300-350 8u,350-399 11u, 400- 449 14u, 450 and above go to ER. clonazePAM (KLONOPIN) 0.5 mg tablet Take 0.5 mg by mouth three times daily as needed. (Patient taking differently: Take 0.5 mg by mouth two times a day.) atorvastatin (LIPITOR) 10 mg tablet Take 1 tablet by mouth daily at bedtime. For cholesterol. INVEGA SUSTENNA 234 mg/1.5 mL syrg injection Inject 234 mg intramuscularly once every month. guaiFENesin (MUCINEX) 600 mg 12 hr tablet Take 2 tablets by mouth once daily. Per Dr. Ramirez sodium chloride-aloe vera (AYR SALINE GEL) nasal spray Use 1 mL in the nose two times a day. Menthol (COUGH DROPS) 5.8 mg Use 1 Lozenge as instructed every 2 hours as needed. Sugar-Free Comp Stocking,Knee,Regular,Med misc Patient to be measured for correct size. 20- 30 mmHg Dx: I50.31 omega-3 fatty acids (FISH OIL CONCENTRATE) 1,000 mg cap Take 1 capsule by mouth once daily. Lancets Test blood sugar(s) 4 times daily with sliding scale coverage. Dx: Other DM Code E11.21 Insulin: Yes blood sugar diagnostic (BLOOD GLUCOSE TEST) test strip testing QIDtimes daily and sliding scale coverage. Insulin yes Use as instructed DXE11.21 insulin needles, DISPOSABLE, (PEN NEEDLE) 31 gauge x 5/16" Use one needle per dose. 4 times daily (basaglar and humalog). Blood-Glucose Meter (FREESTYLE LITE METER) monitoring kit Used three times daily to check blood sugar. 250.00 Artificial Tear, Hypromellose, (SYSTANE GEL) 0.3 % gel Use 1 Drop in both eyes daily at bedtime. Blood Pressure Monitor 1 Each twice daily. No current facility-administered medications for this visit. ALLERGIES: ALLERGIES No Known Allergies PAST MEDICAL HISTORY Diagnosis Date Bilateral pneumonia 07/23/2018 Admit [facility]: pneumococcal suspected, neg culture. 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 REVIEW OF SYSTEMS Constitutional: (+) fatigue, (+) polydipsia Eyes: (+) burning eyes HEALTH MAINTENANCE: Reviewed health maintenance issues today and recommended the following in detail. Medicare Advantage Annual Wellness Visit Never done Dilated Retinal Exam due on 11/17/2024 Influenza Vaccine(1) due on 06/13/2025 LAB REVIEWED: (March) - Serum sodium: 131 mmol/L - A1C: 6.5% - BNP: Normal Hepatitis B screen: Positive result, likely false positive per Infectious Disease Liver function tests: Improved from previous levels VITALS: BP 100/68 Pulse 108 Temp (!) 35.6 C (96 F) Wt 84.8 kg (187 lb) LMP 09/12/2017 SpO2 93% BMI 35.33 kg/m Last 4 Encounter Wt Readings: Date: Wt: 06/28/2025 84.8 kg (187 lb) 04/04/2025 86.2 kg (190 lb) 03/29/2025 85.1 kg (187 lb 9.6 oz) 01/12/2025 85.3 kg (188 lb) PHYSICAL EXAMINATION: General: Alert, well-developed, no acute distress. Neck: No JVD. No carotid bruit. Lungs: Respirations unlabored, clear to auscultation, no wheezes, rales or rhonchi, symmetric air entry. Heart: Regular rate and regular rhythm, S1 and S2 normal, no murmur, no rub or gallop. Abdomen: Soft, non-tender. Extremities: No significant edema noted, slight indentation from socks but not concerning. Pulses: 2+ symmetric radial pulse. Skin: Warm and dry. ASSESSMENT AND PLAN 1. GERD without esophagitis (K21.9) - Continue Prilosec. - Order magnesium and B12 levels to monitor for deficiencies related to long- term PPI use. - Advised against adding turmeric due to potential liver issues and medication burden. 2. Epigastric pain (R10.13) - continue prilosec. 3. Venous insufficiency (I87.2) 4. Edema, unspecified type (R60.9) - Noted patient is not currently wearing support hose. - Advised patient to wear compression stockings; prescription provided. - Order BNP to rule out cardiac contribution to edema. 5. Pure hypercholesterolemia (E78.00) - Insurance requested consideration for statin therapy. - Previously on Lipitor 10 mg, held by cardiology due to leg aches. - Resume Lipitor 10 mg to reduce risk of heart disease; explained that statin is not related to legpain. 6. Water intoxication (E87.79) 7. Hyponatremia (E87.1) - Recent sodium was 131 in March, showing improvement. - Fluid restriction in place; patient continues to drink excess fluids, particularly juice. - Order BMP to reassess sodium levels. 8. Type 2 diabetes mellitus with diabetic nephropathy, with long-term current use of insulin (HCC) (E11.21) - Most recent A1c was 6.5% in March, showing improvement. - Order repeat A1c. 9. Schizophreniform disorder, chronic condition (HCC) (F20.81) - Continues to see psychiatry. - Advised patient to discuss benztropine side effects with psychiatrist. 10. LIDA (obstructive sleep apnea) (G47.33) - Continues to use CPAP. - Continues to see Dr. Ramirez for management. 11. SVT (supraventricular tachycardia) ([facility]) (I47.10) 12. Tachycardia (R00.0) - Seen by cardiology in March; blood pressure and heart rate stable. - Order BNP to monitor cardiac status. 13. Acute diastolic CHF (congestive heart failure) ([facility]) (I50.31) - Normal BNP in March. - Order repeat BNP to monitor cardiac status. 14. Obesity, Class II, BMI 35-39.9 (E66.812) - Weight down 3 lbs since last visit. 15. Fatigue, unspecified type (R53.83) - check labs. 16. Encounter for immunization (Z23) - Administer flu shot today. - Advised patient to obtain second shingles vaccine at pharmacy. 17. Medication monitoring encounter (Z51.81) - Order CBC, thyroid panel, magnesium, and B12 levels. - Follow-up in 6 months. (See patient after visit summary for additional instructions to patient) Aleksandar Jones MD Recording using [employer] software for draft documentation of the visit was discussed with the patient/authorized motor vehicle field representative; all questions welcomed and answered. Patient/authorized motor vehicle field representative agreed to proceed [1] Social History Tobacco Use Smoking status: Former Current packs/day: 0.00 Average packs/day: 2.0 packs/day for 20.0 years (40.0 ttl pk-yrs) Types: Cigarettes Start date: 01/11/1994 Quit date: 01/11/2014 Years since quittin.4 Smokeless tobacco: Never Vaping Use Vaping status: Never Used Substance Use Topics Alcohol use: No Drug use: No Comment: leisaan- Teen yrs, but not now [facility] Consult note Author Andreas Mo [facility] Note Date/Time June 23, 2025 11:01am [facility] Medical Records Department [address] [place] [address] Pre-Anesthesia Evaluation 06/23/25 1043 MR#: [id number] Acct: [id number] Name: BRENDA LE Rep #:[id number] : 1965 59 From: Andreas Mo MD PCP: Dr. Aleksandar Jones MD Status:REG S DC Y Race: C Location: [place] [address] Andreas Mo MD on 06/23/25 at 1101 Addendum Patient sodium is noted to be 129. She has had labile sodium levels going as far back as 2013. Okay to proceed. 06/23/25 1101 <Electronically signed by Andreas bourgeois MD> Date _ Andreas Mo MD cc: ~* Signed ASA Classification* ASA Classification ASA Classification: 4 Assessment & Plan Anesthesia* Anesthesia Assessment Anesthesia Assessment: Discussed sedation and/or anesthesia options, risks, benefits, and alternatives with patient/parents/legal guardian/POA. Questions invited. The patient/parents/legal guardian/POA seems to understand and agrees to proceedwith anesthesia plan. Reviewed the physical assessment, medical history, allergy history and patient home medications list prior to surgery/procedure/anesthetic and documented any changes. Performed airway and anesthesia risk assessments. Anesthesia Type Anesthesia Type: MAC History Source History Obtained from:: Patient and Chart Anesthesia Focused Assessment* Temperature: 97.4 F Pulse Rate: 96 Blood Pressure: 137/73 Respiratory Rate: 18 Pulse Ox: 93 Oxygen Delivery Method: Room Air Airway Assessment Mouth opens: 2 cm Mallampati Score: IV Teeth Condition: Dentures (Patient has full upper and lower dentures. They are out.) Neck Range of motion (ROM): Limited ROM (Somewhat Decreased) Labs Anesthesia Preop lab: CBC WBC 11.9 K/mm3 (4.4-11.0) H 06/21/25 07:20 5 RBC 4.45 M/mm3 (4.2-5.4) 06/21/25 07:20 06/21/25 Hgb 13.0 g/dL (12.0-15.0) 06/21/25 07:20 06/21/25 Hct 39.5 % (37-47) 06/21/25 07:20 06/21/25 Plt Count 226 K/mm3 (150-450) 06/21/25 07:20 06/21/25 CHEMISTRY Potassium 4.4 mmol/L (3.3-5.1) 04/11/25 10:35 04/11/25 Sodium 129 mmol/L (133-145) L 04/11/25 10:35 04/11/25 Magnesium 2.2 mg/dL (1.6-2.6) 11/10/24 07:01 11/10/24 Phosphorus 3.2 mg/dL (2.5-4.9) 11/10/24 07:01 11/10/24 BUN 11 mg/dL (4-19) 04/11/25 10:35 04/11/25 Creatinine 0.56 mg/dL (0.70-1.20) L 04/11/25 10:35 Glucose 88 mg/dL (70-99) 04/11/25 10:35 04/11/25 POC Glucose 119 mg/dL (74-106) H 06/23/25 09:32 06/23/25 TSH 0.831 uIU/mL (0.358-3.740) 11/10/24 07:01 10/14 07/07 COAG PT 13.0 SECONDS (11.7-14.9) 12/21/24 08:58 Pre-Assessment Diagnosis/Proposed Procedure Planned Operative Procedure(s): COLONOSCOPY, EGD Anesthesia History Anesthesia History - director of strategic programs: Anesthesia History - director of strategic programs Hx Hospitalization Yes: PNEUMONIA 06/21/25 12:00 Any Problems With Anesthesia No 06/21/25 12:00 Cholinesterase deficiency No 06/21/25 12:00 You/Your Family Experience No 06/21/25 12:00 fever (hyperthermia) with Relationship Recent Exposure to Contagious No 06/23/25 09:36 Disease Does patient have nerve No 06/21/25 12:00 stimulator Patient instructed to have device shut off --Does patient have Pacemaker No 06/23/25 09:36 or ICD? When Was Last Pacemaker Check QUESTION #4 FULL TEXT: You/Your Family Experience fever (hyperthermia) with Anesthesia Last Oral Intake Last Oral intake: Last Oral Intake NPO since 07:30 06/23/25 09:36 Meds taken in AM with sips of No 06/23/25 09:36 water? Meds patient instructed to take am of surgery Any additional information?: Yes NPO since: 07:30 (Patient finished her prep at 7:30 AM.) Meds taken in AM with sips of water?: No PONV PONV - director of strategic programs: PONV - director of strategic programs Female Yes 06/21/25 12:00 HX of Motion Sickness No 06/21/25 12:00 HX of N/V After Surgery No 06/21/25 12:00 Non-Smoker Yes 06/21/25 12:00 Duration of Surgery greater No 06/21/25 12:00 than 60 minutes Number of Risk Factors 2 06/21/25 12:00 PONV Score Moderate Risk 06/21/25 12:00 Height & Weight Height & Weight: Anesthesia: Height & Weight Height 5 ft 1 in 06/23/25 09:36 Weight: 85 kg 06/23/25 09:36 Body Mass Index (BMI) 35.4 06/23/25 09:36 Respiratory Assessment Respiratory Assessment - director of strategic programs: Respiratory Tract Infection Hx - director of strategic programs Hx Respiratory Tract Infection Yes: COMPLETED ATB 06/21/25 12:00 Any additional information?: Yes Hx Respiratory Tract Infection: Yes (Patient was on antibiotics for airway infection. She has been done with it) History of Anesthesia Respiratory Infection details: Patient was on antibiotics for airway infection. She has been done with it for over a week. STOP Sleep Apnea STOP Sleep Apnea - director of strategic programs: STOP Sleep Apnea - director of strategic programs Hx Hypertension Yes 06/21/25 12:00 Hx Sleep Apnea Yes 06/21/25 12:00 CPAP No 06/21/25 12:00 BIPAP Yes 06/21/25 12:00 Do you snore loudly (louder than talking or can be heard Do you often feel tired/ fatigued/ sleepy during daytime? Has anyone observed you stop breathing during sleep? STOP Results Positive 06/21/25 12:00 QUESTION #5 FULL TEXT : Do you snore loudly (louder than talking or can be heard through closed doors)? Tobacco Use History Tobacco Use History - director of strategic programs: Tobacco Use History - director of strategic programs Tobacco Use Smoking Status Former smoker 06/21/25 12:00 Hx Tobacco Use No 06/21/25 12:00 Years Smoking Packs Smoked per Day Smoking Cessation Date was No - quit smoking greater 06/21/25 12:00 within the last 15 years than 15 years ago Hx Smoking Cessation Date 07/30/20 06/21/25 12:00 Hx Smoking Cessation No 06/21/25 12:00 Counseling Hematologic Medial History Hematologic Hx - director of strategic programs: Hematologic Medical Hx - activity therapy specialist Hx of Blood Transfusion No 06/21/25 12:00 Hx of Transfusion in last 3 No 06/21/25 12:00 Months Date of Last Transfusion (if within last 3 months) Ever experience any problems No 06/21/25 12:00 with transfusion(s)? Specify any problems Hx of Preganancy in last 3 No 06/21/25 12:00 Months Nurse Filling Out Transfusion MGRIFFITH 06/21/25 12:00 & Questions: Date: 06/21/25 06/21/25 12:00 Time: 12:03 06/21/25 12:00 Patient unable to answer at this time (ie. confused, unrespo /Reproduction History /Reproductive History - director of strategic programs: /Reproductive Hx- director of strategic programs Hx Now No 06/21/25 12:00 Gestational Age (in weeks): EDC: Hx Hx Para Hx Section SAB No 06/21/25 12:00 Active Medications Active Medications: Current Medications Generic Name Dose Route Start Last Admin Trade Name Freq PRN Reason Stop Dose Admin Lactated Ringer's 1,000 mls @ 15 mls/hr 06/23/25 09:30 06/23/25 09:50 IV 15 mls/hr .Q48H JAQUI Administration PFSH Medical History Wears glasses Wears dentures Insulin dependent diabetes mellitus Back pain Gastric reflux Former smoker BiPAP (biphasic positive airway pressure) dependence Sleep apnea Shortness of breath on exertion History of edema Hypertension Obesity (BMI 30-39.9) Hyponatremia Leukocytosis Respiratory insufficiency COPD exacerbation Pneumonia LIDA on CPAP Obesity Anxiety and depression Type 2 diabetes mellitus COPD (chronic obstructive pulmonary disease) Restless leg syndrome GERD (gastroesophageal reflux disease) COPD exacerbation Schizophrenia HTN (hypertension) Hyperlipidemia Home Medications ?Medication ?Instructions ?Recorded ?Last Taken ?Type cholecalciferol (vitamin D3) 25 1,000 unit PO DAILY ROSAS PPLEMENT 10/17/17 06/22/25 History mcg (1,000 unit) capsule (Vitamin D3) aspirin 325 mg tablet,delayed 325 mg PO DAILY@[facility] 07/22/18 06/22/25 History release potassium chloride 20 mEq 20 meq PO DAILY supplement 0 11/16/19 06/22/25 History tablet,extended release(part/cryst) clozapine 100 mg tablet 100 mg PO 4X/DAY SCHIZOPHREN IA 07/30/21 06/22/25 History empagliflozin 10 mg tablet 10 mg PO DAILY diabetes 06/22/25 History (Jardiance) furosemide 20 mg tablet 20 mg PO DAILY FLUID 1 06/22/25 History insulin glargine 100 unit/mL (3 60 unit subcut QHS DM 07/30/21 06/22/25 History mL) subcutaneous pen (Lantus Solostar U-100 Insulin) metoprolol succinate 25 mg 25 mg PO QHS HTN 07/30/21 0 06/22/25 History tablet,extended release 24 hr clonazepam 0.5 mg tablet 0.5 mg PO BID schizophrenia 06/05/22 06/22/25 History ferrous sulfate 325 mg (65 mg 325 mg PO BID anemia 06/22/25 History iron) tablet (Feosol) pramipexole 0.5 mg tablet 0.5 mg PO QHS restless legs 06/05/22 06/22/25 History haloperidol 2 mg tablet 2 mg PO QHS anxiety 08/14/23 06/22/25 History metformin 500 mg tablet,extended 1,000 mg PO BID Diabe janeth 08/14/23 06/22/25 History release 24 hr benztropine 0.5 mg tablet 0.5 mg PO BID tremors 06/22/25 History peg 3350-electrolytes 236 240 ml PO Q10M PRN #4,000 mL 12/13/23 06/22/25 Rx gram-22.74 gram-6.74 gram-5.86 gram solution (Golytely) docusate sodium 100 mg capsule 100 mg PO BID 11/09/24 06/22/25 History fluticasone furoate 100 1 inh inhalation DAILY 11/0906/22/25 History mcg-vilanterol 25 mcg/dose inhalation powder (Breo Ellipta) gabapentin 100 mg capsule 200 mg PO TID 11/09/2406/22 History guaifenesin 600 mg tablet, 1,200 mg PO DAILY 11/09/24 06/22/25 History extended release 12 hr (Mucus Relief ER) omega-3 fatty acids-fish oil 300 1 cap PO QHS 11/09/24 06/22/25 History mg-1,000 mg capsule paliperidone palmitate 234 mg/1.5 234 mg IM QHS 06/22/25 History mL intramuscular syringe (Invega Sustenna) acetaminophen 325 mg tablet 325 mg PO Q4H PRN pain 07/07 Unknown History albuterol sulfate 2.5 mg/3 mL 2.5 mg inhalation 4X/DAY PRN PRN 06/21/25 Unknown History (0.083 %) solution for nebulization wheezing albuterol sulfate 90 mcg/actuation 2 puff inhalation Q 4H PRN 06/21/25 Unknown History aerosol inhaler shortness of breath or wheez ing aluminum-magnesium hydroxide 200 30 ml PO Q4H PRN dysp epsia 06/21/25 Unknown History mg-200 mg/5 mL oral suspension clonazepam 1 mg tablet 1 mg PO QHS 06/21/25 5 History insulin lispro 100 unit/mL 1 sliding scale dose subcut .CM 06/21/25 06/22/25 History subcutaneous solution (Humalog U-100 Insulin) omeprazole 20 mg capsule,delayed 20 mg PO BID 06/21/25 06/22/25 History release Allergy/AdvReac Type Severity Reaction Status Date / Time No Known Allergies Allergy Verified 06/23/25 09:33 Family History Mother Heart disease Hypertension Father COPD (chronic obstructive pulmonary disease) Cancer Surgical History History of mandibular surgery History of cholecystectomy Social History housing: other details: shelter. Smoking Status: Former smoker how long ago did patient quit smoking: Quit 10 years prior to 08/14/23 presentation, 2 ppd since teen until quit. alcohol intake: never substance use type: does not use Review of Systems (Anesthesia) ROS Narrative System reviewed and no additional complaints, except as documented. 06/23/25 1055 <Electronically signed by Andreas bourgeois MD> Date _ Andreas Mo MD Cosigner Signature: Date CC: ~ Signed [facility] Work Phone: [phone]) 750-989409-11-2025 Procedure note [facility] Medical Records Department [address] [place] [id number] Colonoscopy Report MR#: [id number] Acct: [id number] Name: BRENDA LE Rep #:[id number] : 1965 59 From: Basil Velasquez DO PCP: Dr. Aleksandar Jones MD Status:REG S DC Patient Name: Brenda Le Procedure Date: 06/23/2025 11:38 AM Date of : 1965 Age: 59 Procedure: Colonoscopy Indications: Clinically significant diarrhea of unexplained origin Providers: Basil Velasquez DO Medicines: Monitored Anesthesia Care Patient Profile: This is a 59 year old female. Refer to note in patient chart for documentation of history and physical. Patient has symptoms of chronic abdominal cramping, chronic abdominal distention, acute global abdominal pain, acute nausea and acute vomiting. Last Colonoscopy: none. The patient's first colonoscopy is today. Complications: No immediate complications. Procedure: Pre-Anesthesia Assessment: - Prior to the procedure, a History and Physical was performed, and patient medications and allergies were reviewed. The patient is competent. The risks and benefits of the procedure and the sedation options and risks were discussed with the patient. All questions were answered and informed consent was obtained. Patient identification and proposed procedure were verified by the physician in the pre-procedure area. Mental Status Examination: alert and oriented. Airway Examination: normal oropharyngeal airway and neck mobility. Respiratory Examination: clear to auscultation. CV Examination: normal. Prophylactic Antibiotics: The patient does not require prophylactic antibiotics. Prior Anticoagulants: The patient has taken no anticoagulant or antiplatelet agents except for NSAID medication. ASA Grade Assessment: II - A patient with mild systemic disease. After reviewing the risks and benefits, the patient was deemed in satisfactory condition to undergo the procedure. The anesthesia plan was to use monitored anesthesia care (MAC). Immediately prior to administration of medications, the patient was re-assessed for adequacy to receive sedatives. The heart rate, respiratory rate, oxygen saturations, blood pressure, adequacy of pulmonary ventilation, and response to care were monitored throughout the procedure. The physical status of the patient was re-assessed after the procedure. After I obtained informed consent, the scope was passed under direct vision. Throughout the procedure, the patient's blood pressure, pulse, and oxygen saturations were monitored continuously. The Colonoscope was introduced through the anus and advanced to the ileocecal valve. Scope In: 11:41:52 AM Scope Withdrawal Time 0 hours 5 minutes 12 seconds Scope Out: 12:30:18 PM Total Procedure Duration Time 0 hours 48 minutes 26 seconds Findings: The perianal and digital rectal examinations were normal. A few small-mouthed diverticula were found in the recto-sigmoid colon, sigmoid colon and descending colon. The colon (entire examined portion) was grossly redundant. Advancing the scope required withdrawing the scope and replacing with the adult endoscope. An area of significantly congested mucosa was found at the splenic flexure, in the transverse colon, at the hepatic flexure and in the ascending colon. Biopsies were taken with a cold forceps for histology. Verification of patient identification for the specimen was done. Estimated blood loss was minimal. Stool was found in the recto-sigmoid colon, in the sigmoid colon, in the descending colon, in the transverse colon, at the hepatic flexure, in the ascending colon and in the cecum. Impression: - Diverticulosis in the recto-sigmoid colon, in the sigmoid colon and in the descending colon. - Redundant colon. - Congested mucosa at the splenic flexure, in the transverse colon, at the hepatic flexure and in the ascending colon. Biopsied. - Stool in the recto-sigmoid colon, in the sigmoid colon, in the descending colon, in the transverse colon, at the hepatic flexure, in the ascending colon and in the cecum. Recommendation: - Discharge patient to home. - Resume previous diet. - Continue present medications. - Await pathology results. - Repeat colonoscopy in 6 months because the bowel preparation was poor. Procedure Code(s): --- Professional --- 59458, Colonoscopy, flexible; with biopsy, single or multiple CPT copyright 2021 [employer]. All rights reserved. The codes documented in this report are preliminary and upon instrument lens generator review may be revised to meet current compliance requirements. Basil Velasquez DO 06/23/2025 12:45:35 PM This report has been signed electronically. Number of Addenda: 0 Note Initiated On: 06/23/2025 11:38 AM 06/23/25 1245 Date _ Basil Velasquez DO Cosigner Signature: Date (if indicated) CC: Dr. Aleksandar Jones MD; Basil Velasquez DO ~ Date Dictated: 06/23/25 1138 Date Transcribed: Indian Nanny: RF Signed [facility]09-11-2025 Procedure note [facility] Medical Records Department [address] [place] [address] Provation Physician Letter MR#: [id number] Acct: [id number] Name: BRENDA LE Rep #:[id number] : 1965 59 From: Basil Velasquez DO PCP: Dr. Aleksandar Jones MD Status:REG S DC 06/23/2025 Aleksandar Jones Re : Colonoscopy procedure for Brenda Le Dionnar Robert This procedure was performed on , June 23, 2025. My impressions and recommendations are as follows: Impressions : - Diverticulosis in the recto-sigmoid colon, in the sigmoid colon and in the descending colon. - Redundant colon. - Congested mucosa at the splenic flexure, in the transverse colon, at the hepatic flexure and in the ascending colon. Biopsied. - Stool in the recto-sigmoid colon, in the sigmoid colon, in the descending colon, in the transverse colon, at the hepatic flexure, in the ascending colon and in the cecum. Recommendations : - Discharge patient to home. - Resume previous diet. - Continue present medications. - Await pathology results. - Repeat colonoscopy in 6 months because the bowel preparation was poor. My findings are described in the full procedure note, which is enclosed. If I can be of further assistance, please feel free to contact me at . Sincerely, Basil Velasquez DO 06/23/2025 12:45:35 PM This report has been signed electronically. 06/23/25 1245 Date _ Basil Velasquez DO Cosigner Signature: Date (if indicated) CC: Dr. Aleksandar Jones MD; Basil Velasquez DO ~ Date Dictated: 06/23/25 1138 Date Transcribed: Indian Nanny: RF Signed [facility]09-11-2025 Procedure note [facility] Medical Records Department [address] [place] [address] EGD Report MR#: [id number] Acct: [id number] Name: BRENDA LE Rep #:[id number] : 1965 59 From: Basil Velasquez DO PCP: Dr. Aleksandar Jones MD Status:REG S DC Patient Name: Brenda Le Procedure Date: 06/23/2025 11:18 AM Date of : 1965 Age: 59 Procedure: Upper GI endoscopy Indications: Epigastric abdominal pain, Functional Dyspepsia, Indigestion, Suspected esophageal reflux Providers: Basil Velasquez DO Medicines: Monitored Anesthesia Care Patient Profile: This is a 59 year old female. Refer to note in patient chart for documentation of history and physical. Patient has symptoms of chronic abdominal cramping, chronic abdominal distention, acute global abdominal pain, acute nausea and acute vomiting. Complications: No immediate complications. Procedure: Pre-Anesthesia Assessment: - Prior to the procedure, a History and Physical was performed, and patient medications and allergies were reviewed. The patient is competent. The risks and benefits of the procedure and the sedation options and risks were discussed with the patient. All questions were answered and informed consent was obtained. Patient identification and proposed procedure were verified by the physician in the pre-procedure area. Mental Status Examination: alert and oriented. Airway Examination: normal oropharyngeal airway and neck mobility. Respiratory Examination: clear to auscultation. CV Examination: normal. Prophylactic Antibiotics: The patient does not require prophylactic antibiotics. Prior Anticoagulants: The patient has taken no anticoagulant or antiplatelet agents except for NSAID medication. ASA Grade Assessment: II - A patient with mild systemic disease. After reviewing the risks and benefits, the patient was deemed in satisfactory condition to undergo the procedure. The anesthesia plan was to use monitored anesthesia care (MAC). Immediately prior to administration of medications, the patient was re-assessed for adequacy to receive sedatives. The heart rate, respiratory rate, oxygen saturations, blood pressure, adequacy of pulmonary ventilation, and response to care were monitored throughout the procedure. The physical status of the patient was re-assessed after the procedure. After obtaining informed consent, the endoscope was passed under direct vision. Throughout the procedure, the patient's blood pressure, pulse, and oxygen saturations were monitored continuously. The Colonoscope was introduced through the mouth, and advanced to the fourth part of the duodenum. Small bowel enteroscopy was deemed necessary. The upper GI endoscopy was accomplished without difficulty. The patient tolerated the procedure well. Scope In: 11:31:10 AM Scope Out: 11:38:40 AM Total Procedure Duration Time 0 hours 7 minutes 30 seconds Findings: Diffuse severe inflammation characterized by adherent blood, erythema, friability and mucus was found in the entire examined stomach. Biopsies were taken with a cold forceps for histology. Verification of patient identification for the specimen was done. Several biopsies were obtained with cold forceps for histology in a targeted manner in the stomach. Verification of patient identification for the specimen was done. Estimated blood loss was minimal. No gross lesions were noted in the entire examined duodenum. Diffuse, white plaques were found in the entire esophagus. Biopsies were taken with a cold forceps for histology. Verification of patient identification for the specimen was done. Estimated blood loss was minimal. Impression: - Normal esophagus. - Chronic gastritis. Biopsied. - No gross lesions in the entire examined duodenum. - Several biopsies were obtained in the stomach. Recommendation: - Discharge patient to home. - Resume previous diet. - Continue present medications. - Await pathology results. -Carafate 1 g p.o. twice daily x 1 month for gastritis - Ursodiol 250 mg p.o. twice daily for gastritis - Fluconazole 100 mg daily x 14 days for Dionicio esophagitis Procedure Code(s): --- Professional --- 17656, Small intestinal endoscopy, enteroscopy beyond second portion of duodenum, not including ileum; with biopsy, single or multiple CPT copyright 2021 [employer]. All rights reserved. The codes documented in this report are preliminary and upon instrument lens generator review may be revised to meet current compliance requirements. Basil Velasquez DO 06/23/2025 12:42:38 PM This report has been signed electronically. Number of Addenda: 0 Note Initiated On: 06/23/2025 11:18 AM 06/23/25 1242 Date _ Basil Velasquez DO Cosigner Signature: Date (if indicated) CC: Dr. Aleksandar Jones MD; Basil Velasquez DO ~ Date Dictated: 06/23/25 1118 Date Transcribed: Indian Nanny: RF Signed [facility]09-11-2025 Procedure note [facility] Medical Records Department [address] [place] [address] Provation Physician Letter MR#: [id number] Acct: [id number] Name: BRENDA LE Rep #:[id number] : 1965 59 From: Basil Velasquez DO PCP: Dr. Aleksandar Jones MD Status:REG S DC 06/23/2025 Aleksandar Jones Re : Upper GI endoscopy procedure for Brenda Le Dionnamariana Robert This procedure was performed on June. My impressions and recommendations are as follows: Impressions : - Normal esophagus. - Chronic gastritis. Biopsied. - No gross lesions in the entire examined duodenum. - Several biopsies were obtained in the stomach. Recommendations : - Discharge patient to home. - Resume previous diet. - Continue present medications. - Await pathology results. -Carafate 1 g p.o. twice daily x 1 month for gastritis - Ursodiol 250 mg p.o. twice daily for gastritis - Fluconazole 100 mg daily x 14 days for Dionicio esophagitis My findings are described in the full procedure note, which is enclosed. If I can be of further assistance, please feel free to contact me at . Sincerely, Basil Velasquez DO 06/23/2025 12:42:38 PM This report has been signed electronically. 06/23/25 1242 Date _ Basil Velasquez DO Cosigner Signature: Date (if indicated) CC: Dr. Aleksandar Jones MD; Basil Velasquez DO ~ Date Dictated: 06/23/25 1118 Date Transcribed: Indian Nanny: RF Signed [facility]09-11-2025 Consult note [facility] Medical Records Department [address] [place] [id number] Anesthesia Postop Eval I 06/23/25 1235 MR#: [id number] Acct: [id number] Name: BRENDA LE Rep #:[id number] : 1965 59 From: Rolf Agudelo CRNA PCP: Dr. Aleksandar Jones MD Status:REG S DC Y Race: C Location: [place] [address] Anesthesia: Postop Eval I Current Vital Signs Temperature: 97.4 F Pulse Rate: 74 Blood Pressure: 107/59 Respiratory Rate: 18 Pulse Ox: 94 Oxygen Delivery Method: Room Air Assessment Airway patent: Yes Spontaneous unlabored respirations: Yes Mental status: Awake and Calm nausea: Yes Vomiting: Yes Anesthesia Complication: No Fluid Hydration Crystalloid volume administer (ml): 900 Total IV fluid infused: 900 Progress Note Anesthesia document: Postop Eval 1 completed: No 06/23/25 1236 ds INSURANCE SALES ASSISTANT> Date _ Rolf Agudelo INSURANCE SALES ASSISTANT Cosigner Signature: Date CC: ~ Signed [facility]09-11-2025 History and physical note Author Basil Velasquez [facility] Note Date/Time June 23, 2025 9:56am [facility] Medical Records Department [address] [facility] [place] [address] History & Physical Exam 06/23/25 0954 MR#: [id number] Acct: [id number] Name: BRENDA LE Rep #:[id number] : 1965 59 From: Basil Velasquez DO PCP: Dr. Aleksandar Jones MD Status:REG S DC Location: [place] [address] HPI - General General Date of Admission: 06/23/25 Date of Service: 06/23/25 Chief Complaint: nausea, abdominal pain HPI Narrative BRENDA LE, is a 59 F who presents with the Chief Complaint: abdominal symptoms Pt presenting unaccompanied from assisted living facility. She endorses feeling unwell with symptoms including abd pain and nausea. Abdominal pain is constant. She has daily nausea mostly once she starts eating. SHe does not vomit. Her bowels alternate between constipation and diarrhea. She will go 2-3 days withouta bm. She denies heartburn. She is on omeprazole 20 mg daily. She has had a colonoscopy in the past but is unsure when this was. She has never had an EGD. [facility] Medical History Wears glasses Wears dentures Insulin dependent diabetes mellitus Back pain Gastric reflux Former smoker BiPAP (biphasic positive airway pressure) dependence Sleep apnea Shortness of breath on exertion History of edema Hypertension Obesity (BMI 30-39.9) Hyponatremia Leukocytosis Respiratory insufficiency COPD exacerbation Pneumonia LIDA on CPAP Obesity Anxiety and depression Type 2 diabetes mellitus COPD (chronic obstructive pulmonary disease) Restless leg syndrome GERD (gastroesophageal reflux disease) COPD exacerbation Schizophrenia HTN (hypertension) Hyperlipidemia Home Medications ?Medication ?Instructions ?Recorded ?Last Taken ?Type cholecalciferol (vitamin D3) 25 1,000 unit PO DAILY ROSAS PPLEMENT 10/17/17 06/22/25 History mcg (1,000 unit) capsule (Vitamin D3) aspirin 325 mg tablet,delayed 325 mg PO DAILY@[facility] 07/22/18 06/22/25 History release potassium chloride 20 mEq 20 meq PO DAILY supplement 0 11/16/19 06/22/25 History tablet,extended release(part/cryst) clozapine 100 mg tablet 100 mg PO 4X/DAY SCHIZOPHREN IA 07/30/21 06/22/25 History empagliflozin 10 mg tablet 10 mg PO DAILY diabetes 06/22/25 History (Jardiance) furosemide 20 mg tablet 20 mg PO DAILY FLUID 2 1 06/22/25 History insulin glargine 100 unit/mL (3 60 unit subcut QHS DM 07/30/21 06/22/25 History mL) subcutaneous pen (Lantus Solostar U-100 Insulin) metoprolol succinate 25 mg 25 mg PO QHS HTN 07/30/21 0 06/22/25 History tablet,extended release 24 hr clonazepam 0.5 mg tablet 0.5 mg PO BID schizophrenia 06/05/22 06/22/25 History ferrous sulfate 325 mg (65 mg 325 mg PO BID anemia 06/22/25 History iron) tablet (Feosol) pramipexole 0.5 mg tablet 0.5 mg PO QHS restless legs 06/05/22 06/22/25 History haloperidol 2 mg tablet 2 mg PO QHS anxiety 08/14/23 06/22/25 History metformin 500 mg tablet,extended 1,000 mg PO BID Diabe janeth 08/14/23 06/22/25 Hist ory release 24 hr benztropine 0.5 mg tablet 0.5 mg PO BID tremors 06/22/25 History peg 3350-electrolytes 236 240 ml PO Q10M PRN #4,000 mL 12/13/23 06/22/25 Rx gram-22.74 gram-6.74 gram-5.86 gram solution (Golytely) docusate sodium 100 mg capsule 100 mg PO BID 11/09/24 06/22/25 History fluticasone furoate 100 1 inh inhalation DAILY 11/0906/22/25 History mcg-vilanterol 25 mcg/dose inhalation powder (Breo Ellipta) gabapentin 100 mg capsule 200 mg PO TID 11/09/2406/22 History guaifenesin 600 mg tablet, 1,200 mg PO DAILY 11/09/24 06/22/25 History extended release 12 hr (Mucus Relief ER) omega-3 fatty acids-fish oil 300 1 cap PO QHS 11/09/24 06/22/25 History mg-1,000 mg capsule paliperidone palmitate 234 mg/1.5 234 mg IM QHS 06/22/25 History mL intramuscular syringe (Invega Sustenna) acetaminophen 325 mg tablet 325 mg PO Q4H PRN pain 07/07 Unknown History albuterol sulfate 2.5 mg/3 mL 2.5 mg inhalation 4X/DAY PRN PRN 06/21/25 Unknown History (0.083 %) solution for nebulization wheezing albuterol sulfate 90 mcg/actuation 2 puff inhalation Q 4H PRN 06/21/25 Unknown History aerosol inhaler shortness of breath or wheez ing aluminum-magnesium hydroxide 200 30 ml PO Q4H PRN dysp epsia 06/21/25 Unknown History mg-200 mg/5 mL oral suspension clonazepam 1 mg tablet 1 mg PO QHS 06/21/25 5 History insulin lispro 100 unit/mL 1 sliding scale dose subcut .CM 06/21/25 06/22/25 History subcutaneous solution (Humalog U-100 Insulin) omeprazole 20 mg capsule,delayed 20 mg PO BID 06/21/25 06/22/25 History release Allergy/AdvReac Type Severity Reaction Status Date / Time No Known Allergies Allergy Verified 06/23/25 09:33 Family History Mother Heart disease Hypertension Father COPD (chronic obstructive pulmonary disease) Cancer Surgical History History of mandibular surgery History of cholecystectomy Social History housing: other details: shelter. Smoking Status: Former smoker how long ago did patient quit smoking: Quit 10 years prior to 08/14/23 presentation, 2 ppd since teen until quit. alcohol intake: never substance use type: does not use ROS Constitutional Constitutional: Denies fatigue, fever(s), poor appetite, weight gain or weight loss Gastrointestinal Gastrointestinal: Denies belching, bloating, change in bowel habits, change in stool character, chewing difficulty, coffee ground emesis, constipation, cramping, diarrhea, dyspepsia, dysphagia, early satiety, excessive flatus, fecalincontinence, heartburn, hematemesis, hematochezia, hemorrhoids, loose stools, melena, nausea, odynophagia, rectal bleeding, tenesmus, vomiting or weight changes Vital Signs Vital Signs Vital Signs: 06/23/25 09:36 06/23/25 09:36 Temperature 97.4 F L Temperature Source Temporal Pulse Rate 96 Respiratory Rate 18 Respiratory Pattern Normal Blood Pressure 137/73 H Blood Pressure Mean 94 Blood Pressure Source Monitor Blood Pressure Position Semi-Fowlers Blood Pressure Location Left Arm Pulse Ox 93 Oxygen Delivery Method Room Air Weight Weight: 187 lb 6.287 oz Body Mass Index (BMI) 35.4 Physical Exam Const alert, oriented x3, no apparent distress and healthy appearing General Appearance: cooperative GI normal to inspection, nondistended, normoactive bowel sounds, soft to palpation,non-tender and non-distended Percussion: normal to percussion Rectal Exam: deferred Assessment & Plan Assessment/Plan (1) Nausea: (2) Abdominal pain: (3) Dysphagia: PLAN: Assessment and Plan Assessment and Plan (1) Constipation: (2) Abdominal pain: Status: Acute Plan: Brenda is a 59 yo female pt who resides in an assisted living facility here todayfor evaluation of GI symptoms. Pt is unaccompanied today and she may be a poor historian. SHe does not come to the office with any paper work or medication list. Pt endorses nausea, abd pain, constipation and loose stools. She is unsure if this is new for her. She has had a colonoscopy in the past but unclearwhen this was. I have increased her omeprazole to twice a day dosing. She will undergo EGD and colonoscopy for assessment of her upper and lower GI tract. -EGD -Colonoscopy -Increase PPI -f/u after procedure (3) Nausea: Status: Acute Medications: Changed From omeprazole 20 mg PO DAILY indigestion To omeprazole 20 mg PO BID 90 caps 3RF indigestion 06/23/25 0956 <Electronically signed by Basil Velasquez DO> Cosigner Signature (if applicable): CC: Dr. Aleksandar Jones MD; Basil Velasquez DO~ Signed [facility] Work Phone: [phone]) 994-330409-11-2025 Consult note [facility] Medical Records Department [address] [place] [address] Pre-Anesthesia Evaluation 06/23/25 1043 MR#: [id number] Acct: [id number] Name: BRENDA LE Rep #:[id number] : 1965 59 From: Andreas Mo MD PCP: Dr. Aleksandar Jones MD Status:REG S DC Y Race: C Location: [place] [address] Andreas Mo MD on 06/23/25 at 1101 Addendum Patient sodium is noted to be 129. She has had labile sodium levels going as far back as 2013. Okayto proceed. 06/23/25 1101 christelle SANDERS> Date _ Andreas Mo MD cc: ~* Signed ASA Classification* ASA Classification ASA Classification: 4 Assessment & Plan Anesthesia* Anesthesia Assessment Anesthesia Assessment: Discussed sedation and/or anesthesia options, risks, benefits, and alternatives with patient/parents/legal guardian/POA. Questions invited. The patient/parents/legal guardian/POA seems to understand and agrees to proceedwith anesthesia plan. Reviewed the physical assessment, medical history, allergy history and patient home medications list prior to surgery/procedure/anesthetic and documented any changes. Performed airway and anesthesia risk assessments. Anesthesia Type Anesthesia Type: MAC History Source History Obtained from:: Patient and Chart Anesthesia Focused Assessment* Temperature: 97.4 F Pulse Rate: 96 Blood Pressure: 137/73 Respiratory Rate: 18 Pulse Ox: 93 Oxygen Delivery Method: Room Air Airway Assessment Mouth opens: 2 cm Mallampati Score: IV Teeth Condition: Dentures (Patient has full upper and lower dentures. They are out.) Neck Range of motion (ROM): Limited ROM (Somewhat Decreased) Labs Anesthesia Preop lab: CBC WBC 11.9 K/mm3 (4.4-11.0) H 06/21/25 07:20 5 RBC 4.45 M/mm3 (4.2-5.4) 06/21/25 07:20 06/21/25 Hgb 13.0 g/dL (12.0-15.0) 06/21/25 07:20 06/21/25 Hct 39.5 % (37-47) 06/21/25 07:20 06/21/25 Plt Count 226 K/mm3 (150-450) 06/21/25 07:20 06/21/25 CHEMISTRY Potassium 4.4 mmol/L (3.3-5.1) 04/11/25 10:35 04/11/25 Sodium 129 mmol/L (133-145) L 04/11/25 10:35 04/11/25 Magnesium 2.2 mg/dL (1.6-2.6) 11/10/24 07:01 11/10/24 Phosphorus 3.2 mg/dL (2.5-4.9) 11/10/24 07:01 11/10/24 BUN 11 mg/dL (4-19) 04/11/25 10:35 04/11/25 Creatinine 0.56 mg/dL (0.70-1.20) L 04/11/25 10:35 Glucose 88 mg/dL (70-99) 04/11/25 10:35 04/11/25 POC Glucose 119 mg/dL (74-106) H 06/23/25 09:32 06/23/25 TSH 0.831 uIU/mL (0.358-3.740) 11/10/24 07:01 /07/07 COAG PT 13.0 SECONDS (11.7-14.9) 12/21/24 08:58 Pre-Assessment Diagnosis/Proposed Procedure Planned Operative Procedure(s): COLONOSCOPY, EGD Anesthesia History Anesthesia History - director of strategic programs: Anesthesia History - director of strategic programs Hx Hospitalization Yes: PNEUMONIA 06/21/25 12:00 Any Problems With Anesthesia No 06/21/25 12:00 Cholinesterase deficiency No 06/21/25 12:00 You/Your Family Experience No 06/21/25 12:00 fever (hyperthermia) with Relationship Recent Exposure to Contagious No 06/23/25 09:36 Disease Does patient have nerve No 06/21/25 12:00 stimulator Patient instructed to have device shut off --Does patient have Pacemaker No 06/23/25 09:36 or ICD? When Was Last Pacemaker Check QUESTION #4 FULL TEXT: You/Your Family Experience fever (hyperthermia) with Anesthesia Last Oral Intake Last Oral intake: Last Oral Intake NPO since 07:30 06/23/25 09:36 Meds taken in AM with sips of No 06/23/25 09:36 water? Meds patient instructed to take am of surgery Any additional information?: Yes NPO since: 07:30 (Patient finished her prep at 7:30 AM.) Meds taken in AM with sips of water?: No PONV PONV - director of strategic programs: PONV - director of strategic programs Female Yes 06/21/25 12:00 HX of Motion Sickness No 06/21/25 12:00 HX of N/V After Surgery No 06/21/25 12:00 Non-Smoker Yes 06/21/25 12:00 Duration of Surgery greater No 06/21/25 12:00 than 60 minutes Number of Risk Factors 2 06/21/25 12:00 PONV Score Moderate Risk 06/21/25 12:00 Height & Weight Height & Weight: Anesthesia: Height & Weight Height 5 ft 1 in 06/23/25 09:36 Weight: 85 kg 06/23/25 09:36 Body Mass Index (BMI) 35.4 06/23/25 09:36 Respiratory Assessment Respiratory Assessment - director of strategic programs: Respiratory Tract Infection Hx - director of strategic programs Hx Respiratory Tract Infection Yes: COMPLETED ATB 06/21/25 12:00 Any additional information?: Yes Hx Respiratory Tract Infection: Yes (Patient was on antibiotics for airway infection. She has been done with it) History of Anesthesia Respiratory Infection details: Patient was on antibiotics for airway infection. She has been done with it for over a week. STOP Sleep Apnea STOP Sleep Apnea - director of strategic programs: STOP Sleep Apnea - director of strategic programs Hx Hypertension Yes 06/21/25 12:00 Hx Sleep Apnea Yes 06/21/25 12:00 CPAP No 06/21/25 12:00 BIPAP Yes 06/21/25 12:00 Do you snore loudly (louder than talking or can be heard Do you often feel tired/ fatigued/ sleepy during daytime? Has anyone observed you stop breathing during sleep? STOP Results Positive 06/21/25 12:00 QUESTION #5 FULL TEXT : Do you snore loudly (louder than talking or can be heard through closeddoors)? Tobacco Use History Tobacco Use History - director of strategic programs: Tobacco Use History - director of strategic programs Tobacco Use Smoking Status Former smoker 06/21/25 12:00 Hx Tobacco Use No 06/21/25 12:00 Years Smoking Packs Smoked per Day Smoking Cessation Date was No - quit smoking greater 06/21/25 12:00 within the last 15 years than 15 years ago Hx Smoking Cessation Date 07/30/20 06/21/25 12:00 Hx Smoking Cessation No 06/21/25 12:00 Counseling Hematologic Medial History Hematologic Hx - director of strategic programs: Hematologic Medical Hx - activity therapy specialist Hx of Blood Transfusion No 06/21/25 12:00 Hx of Transfusion in last 3 No 06/21/25 12:00 Months Date of Last Transfusion (if within last 3 months) Ever experience any problems No 06/21/25 12:00 with transfusion(s)? Specify any problems Hx of Preganancy in last 3 No 06/21/25 12:00 Months Nurse Filling Out Transfusion MGRINUVIA 06/21/25 12:00 & Questions: Date: 06/21/25 06/21/25 12:00 Time: 12:03 06/21/25 12:00 Patient unable to answer at this time (ie. confused, unrespo /Reproduction History /Reproductive History - director of strategic programs: /Reproductive Hx- director of strategic programs Hx Now No 06/21/25 12:00 Gestational Age (in weeks): EDC: Hx Hx Para Hx Section SAB No 06/21/25 12:00 Active Medications Active Medications: Current Medications Generic Name Dose Route Start Last Admin Trade Name Julissa PRN Reason Stop Dose Admin Lactated Ringer's 1,000 mls @ 15 mls/hr 06/23/25 09:30 06/23/25 09:50 IV 15 mls/hr .Q48H JAQUI Administration PFSH Medical History Wears glasses Wears dentures Insulin dependent diabetes mellitus Back pain Gastric reflux Former smoker BiPAP (biphasic positive airway pressure) dependence Sleep apnea Shortness of breath on exertion History of edema Hypertension Obesity (BMI 30-39.9) Hyponatremia Leukocytosis Respiratory insufficiency COPD exacerbation Pneumonia LIDA on CPAP Obesity Anxiety and depression Type 2 diabetes mellitus COPD (chronic obstructive pulmonary disease) Restless leg syndrome GERD (gastroesophageal reflux disease) COPD exacerbation Schizophrenia HTN (hypertension) Hyperlipidemia Home Medications ?Medication ?Instructions ?Recorded ?Last Taken ?Type cholecalciferol (vitamin D3) 25 1,000 unit PO DAILY ROSAS PPLEMENT 10/17/17 06/22/25 History mcg (1,000 unit) capsule (Vitamin D3) aspirin 325 mg tablet,delayed 325 mg PO DAILY@[facility] 07/22/18 06/22/25 History release potassium chloride 20 mEq 20 meq PO DAILY supplement 0 11/16/19 06/22/25 History tablet,extended release(part/cryst) clozapine 100 mg tablet 100 mg PO 4X/DAY SCHIZOPHREN IA 07/30/21 06/22/25 History empagliflozin 10 mg tablet 10 mg PO DAILY diabetes 06/22/25 History (Jardiance) furosemide 20 mg tablet 20 mg PO DAILY FLUID 2 1 06/22/25 History insulin glargine 100 unit/mL (3 60 unit subcut QHS DM 07/30/21 06/22/25 History mL) subcutaneous pen (Lantus Solostar U-100 Insulin) metoprolol succinate 25 mg 25 mg PO QHS HTN 07/30/21 0 06/22/25 History tablet,extended release 24 hr clonazepam 0.5 mg tablet 0.5 mg PO BID schizophrenia 06/05/22 06/22/25 History ferrous sulfate 325 mg (65 mg 325 mg PO BID anemia 06/22/25 History iron) tablet (Feosol) pramipexole 0.5 mg tablet 0.5 mg PO QHS restless legs 06/05/22 06/22/25 History haloperidol 2 mg tablet 2 mg PO QHS anxiety 08/14/23 06/22/25 History metformin 500 mg tablet,extended 1,000 mg PO BID Diabe janeth 08/14/23 06/22/25 History release 24 hr benztropine 0.5 mg tablet 0.5 mg PO BID tremors 06/22/25 History peg 3350-electrolytes 236 240 ml PO Q10M PRN #4,000 mL 12/13/23 06/22/25 Rx gram-22.74 gram-6.74 gram-5.86 gram solution (Golytely) docusate sodium 100 mg capsule 100 mg PO BID 11/09/24 06/22/25 History fluticasone furoate 100 1 inh inhalation DAILY 11/0906/22/25 History mcg-vilanterol 25 mcg/dose inhalation powder (Breo Ellipta) gabapentin 100 mg capsule 200 mg PO TID 11/09/2406/22 History guaifenesin 600 mg tablet, 1,200 mg PO DAILY 11/09/24 06/22/25 History extended release 12 hr (Mucus Relief ER) omega-3 fatty acids-fish oil 300 1 cap PO QHS 11/09/24 06/22/25 History mg-1,000 mg capsule paliperidone palmitate 234 mg/1.5 234 mg IM QHS 06/22/25 History mL intramuscular syringe (Invega Sustenna) acetaminophen 325 mg tablet 325 mg PO Q4H PRN pain 07/07 Unknown History albuterol sulfate 2.5 mg/3 mL 2.5 mg inhalation 4X/DAY PRN PRN 06/21/25 Unknown History (0.083 %) solution for nebulization wheezing albuterol sulfate 90 mcg/actuation 2 puff inhalation Q 4H PRN 06/21/25 Unknown History aerosol inhaler shortness of breath or wheez ing aluminum-magnesium hydroxide 200 30 ml PO Q4H PRN dysp epsia 06/21/25 Unknown History mg-200 mg/5 mL oral suspension clonazepam 1 mg tablet 1 mg PO QHS 06/21/25 5 History insulin lispro 100 unit/mL 1 sliding scale dose subcut .CM 06/21/25 06/22/25 History subcutaneous solution (Humalog U-100 Insulin) omeprazole 20 mg capsule,delayed 20 mg PO BID 06/21/25 06/22/25 History release Allergy/AdvReac Type Severity Reaction Status Date / Time No Known Allergies Allergy Verified 06/23/25 09:33 Family History Mother Heart disease Hypertension Father COPD (chronic obstructive pulmonary disease) Cancer Surgical History History of mandibular surgery History of cholecystectomy Social History housing: other details: shelter. Smoking Status: Former smoker how long ago did patient quit smoking: Quit 10 years prior to 08/14/23 presentation, 2 ppd since teen until quit. alcohol intake: never substance use type: does not use Review of Systems (Anesthesia) ROS Narrative System reviewed and no additional complaints, except as documented. 06/23/25 1055 christelle SANDERS> Date _ Andreas Mo MD Cosigner Signature: Date CC: ~ Signed [facility]09-11-2025 History and physical note [facility] Medical Records Department [address] [place] [address] History & Physical Exam 06/23/25 0954 MR#: [id number] Acct: [id number] Name: BRENDA LE Rep #:[id number] : 1965 59 From: Basil Friend DO PCP: Dr. Aleksandar Robert, MD Status:REG S DC Location: [facility] HPI - General General Date of Admission: 06/23/25 Date of Service: 06/23/25 Chief Complaint: nausea, abdominal pain HPI Narrative BRENDA LE, is a 59 F who presents with the Chief Complaint: abdominal symptoms Pt presenting unaccompanied from assisted living facility. She endorses feeling unwell with symptoms including abd pain and nausea. Abdominal pain is constant. She has daily nausea mostly once she starts eating. SHe does not vomit. Her bowels alternate between constipation and diarrhea. She will go2-3 days withouta bm. She denies heartburn. She is on omeprazole 20 mg daily. She has had a colonoscopy in the past but is unsure when this was. She has never had an EGD. [facility] Medical History Wears glasses Wears dentures Insulin dependent diabetes mellitus Back pain Gastric reflux Former smoker BiPAP (biphasic positive airway pressure) dependence Sleep apnea Shortness of breath on exertion History of edema Hypertension Obesity (BMI 30-39.9) Hyponatremia Leukocytosis Respiratory insufficiency COPD exacerbation Pneumonia LIDA on CPAP Obesity Anxiety and depression Type 2 diabetes mellitus COPD (chronic obstructive pulmonary disease) Restless leg syndrome GERD (gastroesophageal reflux disease) COPD exacerbation Schizophrenia HTN (hypertension) Hyperlipidemia Home Medications ?Medication ?Instructions ?Recorded ?Last Taken ?Type cholecalciferol (vitamin D3) 25 1,000 unit PO DAILY ROSAS PPLEMENT 10/17/17 06/22/25 History mcg (1,000 unit) capsule (Vitamin D3) aspirin 325 mg tablet,delayed 325 mg PO DAILY@[facility] 07/22/18 06/22/25 History release potassium chloride 20 mEq 20 meq PO DAILY supplement 0 11/16/19 06/22/25 History tablet,extended release(part/cryst) clozapine 100 mg tablet 100 mg PO 4X/DAY SCHIZOPHREN IA 07/30/21 06/22/25 History empagliflozin 10 mg tablet 10 mg PO DAILY diabetes 06/22/25 History (Jardiance) furosemide 20 mg tablet 20 mg PO DAILY FLUID 2 1 06/22/25 History insulin glargine 100 unit/mL (3 60 unit subcut QHS DM 07/30/21 06/22/25 History mL) subcutaneous pen (Lantus Solostar U-100 Insulin) metoprolol succinate 25 mg 25 mg PO QHS HTN 07/30/21 0 06/22/25 History tablet,extended release 24 hr clonazepam 0.5 mg tablet 0.5 mg PO BID schizophrenia 06/05/22 06/22/25 History ferrous sulfate 325 mg (65 mg 325 mg PO BID anemia 06/22/25 History iron) tablet (Feosol) pramipexole 0.5 mg tablet 0.5 mg PO QHS restless legs 06/05/22 06/22/25 History haloperidol 2 mg tablet 2 mg PO QHS anxiety 08/14/23 06/22/25 History metformin 500 mg tablet,extended 1,000 mg PO BID Diabe janeth 08/14/23 06/22/25 Hist ory release 24 hr benztropine 0.5 mg tablet 0.5 mg PO BID tremors 06/22/25 History peg 3350-electrolytes 236 240 ml PO Q10M PRN #4,000 mL 12/13/23 06/22/25 Rx gram-22.74 gram-6.74 gram-5.86 gram solution (Golytely) docusate sodium 100 mg capsule 100 mg PO BID 11/09/24 06/22/25 History fluticasone furoate 100 1 inh inhalation DAILY 11/0906/22/25 History mcg-vilanterol 25 mcg/dose inhalation powder (Breo Ellipta) gabapentin 100 mg capsule 200 mg PO TID 11/09/2406/22 History guaifenesin 600 mg tablet, 1,200 mg PO DAILY 11/09/24 06/22/25 History extended release 12 hr (Mucus Relief ER) omega-3 fatty acids-fish oil 300 1 cap PO QHS 11/09/24 06/22/25 History mg-1,000 mg capsule paliperidone palmitate 234 mg/1.5 234 mg IM QHS 06/22/25 History mL intramuscular syringe (Invega Sustenna) acetaminophen 325 mg tablet 325 mg PO Q4H PRN pain 07/07 Unknown History albuterol sulfate 2.5 mg/3 mL 2.5 mg inhalation 4X/DAY PRN PRN 06/21/25 Unknown History (0.083 %) solution for nebulization wheezing albuterol sulfate 90 mcg/actuation 2 puff inhalation Q 4H PRN 06/21/25 Unknown History aerosol inhaler shortness of breath or wheez ing aluminum-magnesium hydroxide 200 30 ml PO Q4H PRN dysp epsia 06/21/25 Unknown History mg-200 mg/5 mL oral suspension clonazepam 1 mg tablet 1 mg PO QHS 06/21/25 5 History insulin lispro 100 unit/mL 1 sliding scale dose subcut .CM 06/21/25 06/22/25 History subcutaneous solution (Humalog U-100 Insulin) omeprazole 20 mg capsule,delayed 20 mg PO BID 06/21/25 06/22/25 History release Allergy/AdvReac Type Severity Reaction Status Date / Time No Known Allergies Allergy Verified 06/23/25 09:33 Family History Mother Heart disease Hypertension Father COPD (chronic obstructive pulmonary disease) Cancer Surgical History History of mandibular surgery History of cholecystectomy Social History housing: other details: shelter. Smoking Status: Former smoker how long ago did patient quit smoking: Quit 10 years prior to 08/14/23 presentation, 2 ppd since teen until quit. alcohol intake: never substance use type: does not use ROS Constitutional Constitutional: Denies fatigue, fever(s), poor appetite, weight gain or weight loss Gastrointestinal Gastrointestinal: Denies belching, bloating, change in bowel habits, change in stool character, chewing difficulty, coffee ground emesis, constipation, cramping, diarrhea, dyspepsia, dysphagia, earlysatiety, excessive flatus, fecalincontinence, heartburn, hematemesis, hematochezia, hemorrhoids, loose stools, melena, nausea, odynophagia, rectal bleeding, tenesmus, vomiting or weight changes Vital Signs Vital Signs Vital Signs: 06/23/25 09:36 06/23/25 09:36 Temperature 97.4 F L Temperature Source Temporal Pulse Rate 96 Respiratory Rate 18 Respiratory Pattern Normal Blood Pressure 137/73 H Blood Pressure Mean 94 Blood Pressure Source Monitor Blood Pressure Position Semi-Fowlers Blood Pressure Location Left Arm Pulse Ox 93 Oxygen Delivery Method Room Air Weight Weight: 187 lb 6.287 oz Body Mass Index (BMI) 35.4 Physical Exam Const alert, oriented x3, no apparent distress and healthy appearing General Appearance: cooperative GI normal to inspection, nondistended, normoactive bowel sounds, soft to palpation,non-tender and non-distended Percussion: normal to percussion Rectal Exam: deferred Assessment & Plan Assessment/Plan (1) Nausea: (2) Abdominal pain: (3) Dysphagia: PLAN: Assessment and Plan Assessment and Plan (1) Constipation: (2) Abdominal pain: Status: Acute Plan: Brenda is a 59 yo female pt who resides in an assisted living facility here todayfor evaluation of GI symptoms. Pt is unaccompanied today and she may be a poor historian. SHe does not come to the office with any paper work or medication list. Pt endorses nausea, abd pain, constipation and loose stools. She is unsure if this is new for her. She has had a colonoscopy in the past but unclearwhen thiswas. I have increased her omeprazole to twice a day dosing. She will undergo EGD and colonoscopy for assessment of her upper and lower GI tract. -EGD -Colonoscopy -Increase PPI -f/u after procedure (3) Nausea: Status: Acute Medications: Changed From omeprazole 20 mg PO DAILY indigestion To omeprazole 20 mg PO BID 90 caps 3RF indigestion 06/23/25 0956 Cosigner Signature (if applicable): CC: Dr. Aleksandar Jones MD; Basil Friend, DO~ Signed [facility]08-27-2025 Telephone encounter Note* Telephone Encounter - Loree Chen RN - 06/08/2025 4:47 PM EDT Clearance form faxed 05/30/25. Loree Chen RN [facility]08-27-2025 Miscellaneous Notes* Telephone Encounter - Loree Chen RN - 06/08/2025 4:47 PM EDT Clearance form faxed 05/30/25. Loree Chen RN * Telephone Encounter - Loree Chen RN - 05/19/2025 1:09 PM EDT NURSING CHART REVIEW FOR PREOPERATIVE CARDIAC EVALUATION Surgery: Colonoscopy/EGD with MAC Sedation Low Risk Date: 06/23/25 Surgeon: [facility] Chart review: Primary senior dentist: Dr. Renee Patient seen in the last year? Yes - 04/04/25 Recent Cardiac admission since last visit? No On anticoagulation for cardiac indication? No On antiplatelet agents? No Date of last cardiac stent if applicable: Form received via fax and scanned into [employer]. Loree Chen RN Optional? List of low risk surgeries Endoscopies (EGD, colonoscopy) Breast Dental Interventional radiology (drains, lines) Dermatological procedures Thyroid Eye (cataract) Inguinal hernia Gynecological: minor Orthopedic minor (arthroscopic) Reconstructive Superficial surgery Urological minor (cystoscopy, TURP) documented [facility] Telephone encounter Note * Telephone Encounter - Aleksandar Jones MD - 06/03/2025 8:12 AM EDT Apparently wears adult pullups due to chronic incontinence. I can find documention of such dating back to [address] Dwight mancilla and Dr Tinajero note. [facility]08-22-2025 Miscellaneous Notes* Telephone Encounter - Aleksandar Jones MD - 06/03/2025 8:12 AM EDT Apparently wears adult pullups due to chronic incontinence. I can find documention of such dating back to [address] Dwight mancilla and Dr Tinajero note. documented in [facility]08-07-2025 Telephone encounter Note * Telephone Encounter - Loree Chen RN - 05/19/2025 1:09 PM EDT NURSING CHART REVIEW FOR PREOPERATIVE CARDIAC EVALUATION Surgery: Colonoscopy/EGD with MAC Sedation Low Risk Date: 06/23/25 Surgeon: [facility] Gastroenterology Chart review: Primary senior dentist: Dr. Renee Patient seen in the last year? Yes - 04/04/25 Recent Cardiac admission since last visit? No On anticoagulation for cardiac indication? No On antiplatelet agents? No Date of last cardiac stent if applicable: Form received via fax and scanned into [employer]. Loree Chen RN Optional? List of low risk surgeries Endoscopies (EGD, colonoscopy) Breast Dental Interventional radiology (drains, lines) Dermatological procedures Thyroid Eye (cataract) Inguinal hernia Gynecological: minor Orthopedic minor (arthroscopic) Reconstructive Superficial surgery Urological minor (cystoscopy, TURP) [facility]07-30-2025 Telephone encounter Note* Telephone Encounter - Aleksandar Jones MD - 05/11/2025 12:09 PM EDT I will address at next ov. [facility]07-30-2025 Miscellaneous Notes* Telephone Encounter - Aleksandar Jones MD - 05/11/2025 12:09 PM EDT I will address at next ov. * Telephone Encounter - Cristal White RN - 05/11/2025 11:33 AM EDT Laney with [facility] called in with a Statin recommendation. She reports Pt was on Lipitor and it hasn't been renewed since Aug 2024. She states Pt is a diabetic and per the diabetic guidelines should be on a statin. She was asking if provider was going to renew medication. Cristal White RN documented in this encounterMer[facility]07-30-2025 Telephone encounter Note * Telephone Encounter - Cristal White RN - 05/11/2025 11:33 AM EDT Laney with [facility] called in with a Statin recommendation. She reports Pt was on Lipitor and it hasn't been renewed since Aug 2024. She states Pt is a diabetic and per the diabetic guidelines should be on a statin. She was asking if provider was going to renew medication. Cristal White RN [facility]07-29-2025 Evaluation note* Diagnosis Onset Date Resolution Status Admit Date Abdominal pain acute May 10, 2025 12:24pm Nausea acute May 10 12:24pm Constipation noneactive May 10, 025 12:24pm [facility] Work Phone: [phone]) 918-552507-29-2025 Evaluation note* Diagnosis Onset Date Resolution Status Admit Date Abdominal pain acute May 10, 2025 12:24pm Nausea acute May 10 12:24pm Constipation noneactive May 10, 025 12:24pm Abdominal pain acute June 23, 2025 7:58am Dysphagia acute June 7:58am Nausea acute June 7:58am [facility] Work Phone: 1(753) 244-137007-29-2025 Evaluation note* Diagnosis Onset Date Resolution Status Admit Date Abdominal pain acute May 10, 2025 12:24pm Nausea acute May 10 12:24pm Constipation noneactive May 10, 025 12:24pm Abdominal pain acute June 23, 2025 7:58am Dysphagia acute June 7:58am Nausea acute June 7:58am Abdominal pain acute July 12, 2025 2:48pm Nausea acute June 2:48pm [facility] Work Phone: 1(484) 799-772907-29-2025 Radiology Diagnostic study note [facility] Imaging Services [address] [place] [address] Lung Screening MR#: [id number] Acct: [id number] Name: BRENDA LE Rep #: [id number] : 1965 F 59 From: Adalid Sanchez MD PCP: Dr. Aleksandar Jones MD Status: REG C CRUZ Study:Low Dose CT Lung Screening Date of Exam : 05/06/25 Exam# [id number] Ordering Dr: Koby Ramirez MD PROCEDURE: LOW [...] use of iterative reconstruction technique). REFERENCE LINK: [facility] RADIATION DOSE SUMMARY: CTDlvol: 4.02 mGy [...] SCREENING LDCT. Other Significant Findings: Reading Location: [id number] CC: Dr. Koby Ramirez MD; Dr. Aleksandar Jones MD ~ Indian Nanny: Maria G [facility]06-24-2025 Telephone encounter Note* Telephone Encounter - Alma Smart RN - 04/05/2025 12:55 PM EDT Kaya returned call and given provider's message below with verbalized understanding. Updated contact per Kaya request. [facility]06-24-2025 Miscellaneous Notes* Telephone Encounter - Alma Smart RN - 04/05/2025 12:55 PM EDT Kaya returned call and given provider's message below with verbalized understanding. Updated contact per Kaya request. * Telephone Encounter - Nisha Oneill MA - 04/05/2025 12:45 PM EDT Called phone number for patient and it was for Breanna Payne, listed as her resident care manager. Breanna answered and said Brenda now lives in [facility] and to call her legal guardian, Kaya [...] does not have hepatitis. documented in this encounterMer[facility]06-[facility]-2025 Telephone encounter Note * Telephone Encounter - Nisha Oneill MA - 04/05/2025 12:45 PM EDT Called phone number for patient and it was for Breanna Payne, listed as her resident care manager. Breanna answered and said Brenda now lives in [facility] and to call her legal guardian, Kaya Fuller. I lefta message for Kaya to call back and speak with a nurse. When she call back, please advise her of results AND update patient contacts. Thanks Nisha Oneill MA April 05, 2025 12:[address] [facility]06-24-2025 Telephone encounter Note* Telephone Encounter - Nisha Oneill MA - 04/05/2025 12:32 PM EDT ----- Message from Aleksandar Jones MD sent at 03/31/2025 10:30 AM EDT ----- Let them know ID feels we are ok. No need for any worry or further testing. She does not have hepatitis. [facility]06-23-2025 [facility]06-[facility] History of Present illness Narrative* Fuentes Renee MD - 04/04/2025 3:44 PM EDT Images from the original note were not included. Fuentes Renee MD Interventional Cardiology [address] [place] [phone] Chief Complaint Patient presents with: Follow Up HISTORY OF PRESENT ILLNESS: Ms. Le is a 59 year old female With tachycardia presenting for follow-up She reports a recent transition from a senior care to an assisted living facility, which has [...] HISTORY Diagnosis Date Bilateral pneumonia 07/23/2018 Admit [facility]: pneumococcal suspected, neg culture. + rhinovirus [...] 1 capsule by mouth once daily. 30 [id number] aspirin, enteric coated (ASPIRIN, ENTERIC COATED) 325 [...] to correct any errors. documented in this encounterMer[facility]. [facility]06-18-2025 NoteA[facility]06-18-2025 History of Present illness Narrative* Aleksandar Jones [...] by mouth once daily. Per Dr. James cruze (RELAFEN) 500 mg tablet Take 1 tablet [...] HISTORY Diagnosis Date Bilateral pneumonia 07/23/2018 Admit [facility]: pneumococcal suspected, neg culture. + rhinovirus [...] to patient) Aleksandar Jones MD Recording using [employer] software for draft documentation of the visit was discussed with the patient/authorized motor vehicle field representative; all questions welcomed and answered. Patient/authorized motor vehicle field representative agreed to proceed documented in this encounterMer[facility] St. [facility]06-17-2025 History of Present illness Narrative* Ritika Estrada RT(R) - 03/29/2025 10:30 AM EDT Radiology [...] PATIENT PRESENTS WITH AN IMPLANTABLE OR ATTACHED DECORATIVE ENGRAVER APPRENTICE: No RADIOLOGY DEPARTMENT: General X-ray: Exam(s) Completed: Chest X-Ray PERIPHERAL IV DATA: Not applicable SIGNED BY: RT Abbe(R) March 29, 2025 10:06 AM documented in this encounterMer[facility] St. [facility]06-17-2025 NoteA[facility]06-02-2025 Telephone encounter Note* Telephone Encounter - Adrianne Saldivar LPN - 03/14/2025 4:44 PM EDT No show letter #[address] [facility]06-02-2025 Miscellaneous Notes* Telephone Encounter - Adrianne Saldivar LPN - 03/14/2025 4:44 PM EDT No show letter #1 documented [address]05-16-2025 Telephone encounter Note * Telephone Encounter - Maye Ferrer LPN - 02/25/2025 9:24 AM EDT Brenda from [facility] calling to notify PCP that patient has moved to assisted living at [facility] on 02/22/2025. [facility]05-16-2025 Miscellaneous Notes* Telephone Encounter - Maye Ferrer LPN - 02/25/2025 9:24 AM EDT Brenda from [facility] calling to notify PCP that patient has moved to assisted living at [facility] on 02/22/2025. documented in this encounterMer[facility]05-09-2025 Telephone encounter Note * Telephone Encounter [...] capsules three times daily. Shirley Romero RN [facility]05-09-2025 Miscellaneous Notes* Telephone Encounter - Shirley [...] daily. Shirley Romero RN documented in this encounterMer[facility] St. [facility]05-02-2025 Telephone encounter Note * Telephone Encounter - Joselyn Hendricks MA - 02/11/2025 2:12 PM EDT Kaya informed form ready. Taken to medical records. Joselyn Hendricks MA [facility]05-02-2025 Miscellaneous Notes* Telephone Encounter - Joselyn [...] nurse's desk. Eunice Lam documented in this encounterMercy Health St. [facility]05-01-2025 Telephone encounter Note * Telephone Encounter - Eunice Lam - 02/10/2025 9:07 AM EDT Guardian brought paperwork back as it still looks incomplete (possibly missing an office note?). Please review and advise. Forms have been placed on nurse's desk. Eunice Lam [facility]04-29-2025 Telephone encounter Note* Telephone Encounter - Joselyn Hendricks MA - 02/08/2025 4:49 PM EDT Form completed and noted per request of Kaya. Placed call to Kaya, cassidy guardian at [facility] with no answer. Left message for return call and informing her form is completed. No fax number on form. Joselyn Hendricks MA [facility]04-29-2025 Miscellaneous Notes* Telephone Encounter - Joselyn Hendricks MA - 02/08/2025 4:49 PM EDT Form completed and noted per request of Kaya. Placed call to Kaya, patients [facility] with no answer. Left message for [...] let provider know that currently in the senior care patient is not adhering to the 1500 [...] provider's desk. If possible, will give to MEMBERSHIP SALES MANAGER's to update if agreeable. Nisha Oneill MA [...] that would be great but at the senior care pt is in now they do not [...] Living. Nel Villafana LPN documented in this encounterMer[facility]. [facility]04-28-2025 Telephone encounter Note * Telephone Encounter - Aleksandar Jones MD - 02/07/2025 8:18 PM EDT She needs the fluid restriction. Carb counting is ok. [facility]04-24-2025 Telephone encounter Note* Telephone Encounter - [...] let provider know that currently in the senior care patient is not adhering to the 1500 cc fluid restriction. Kaya asking if provider could add to the forms that Patient is awareof 1500 mL fluid restriction to address the issues but stay within what the AL is allowed to do. Anusha Hansen RN [facility]04-21-2025 Telephone encounter Note* Telephone Encounter - Nisha Oneill MA - 01/31/2025 3:06 PM EDT Copy of form placed on provider's desk. If possible, will give to MEMBERSHIP SALES MANAGER's to update if agreeable. Nisha Oneill MA January 31, 2025 3:[address] [facility]04-21-2025 Telephone encounter Note* Telephone Encounter - [...] that would be great but at the senior care pt is in now they do not [...] get into Assisted Living. Nel Villafana LPN [facility]04-18-2025 Telephone encounter Note* Telephone Encounter - Adrianne Saldivar LPN - 01/28/2025 12:50 PM EDT Notified Kaya that will be in medical records for merchandise pickup/receiving associate. [facility]04-18-2025 Miscellaneous Notes* Telephone Encounter - Adrianne Saldivar LPN - 01/28/2025 12:50 PM EDT Notified Kaya that will be in medical records for merchandise pickup/receiving associate. * Telephone Encounter - Eunice Spivey RN - 01/27/2025 11:12 AM EDT Kaya calls and states that she did not receive forms that were faxed. Kaya asking if she can comeinto office and merchandise pickup/receiving associate a copy of forms? Please review and advise, Eunice Spivey RN documented in this encounterMer[facility]04-17-2025 Telephone encounter Note * Telephone Encounter - Eunice Spivey RN - 01/27/2025 11:12 AM EDT Kaya calls and states that she did not receive forms that were faxed. Kaya asking if she can comeinto office and merchandise pickup/receiving associate a copy of forms? Please review and advise, Eunice Spivey RN [facility]04-15-2025 Telephone encounter Note* Telephone Encounter - [...] Spivey RN January 25, 2025 3:[address] [facility]04-15-2025 Miscellaneous Notes* Telephone Encounter - Eunice [...] 25, 2025 3:23 PM documented in this encounterMer[facility]. [facility]04-14-2025 Telephone encounter Note * Telephone Encounter - Adrianne Saldivar LPN - 01/24/2025 8:21 AM EDT Forms completed and faxed as requested. [facility]04-14-2025 Miscellaneous Notes* Telephone Encounter - Adrianne Saldivar LPN - 01/24/2025 8:21 AM EDT Forms completed and faxed as requested. * Telephone Encounter - Eunice Lam - 01/21/2025 1:55 PM EDT Patient's Guardian, Kaya Fulelr, dropped off forms for patient's assisted living facility. Please fax completed forms to Kaya at [phone]. Form placed on nurse's desk. Eunice Lam documented in this encounterMer[facility]04-11-2025 Telephone encounter Note * Telephone Encounter - Eunice Lam - 01/21/2025 1:55 PM EDT Patient's Guardian, Kaya Fuller, dropped off forms for patient's assisted living facility. Please fax completed forms to Kaya at [phone]. Form placed on nurse's desk. Eunice Lam [facility]04-09-2025 History of Present illness Narrative* Samira [...] PATIENT PRESENTS WITH AN IMPLANTABLE OR ATTACHED DECORATIVE ENGRAVER APPRENTICE: No RADIOLOGY DEPARTMENT: Mammography PERIPHERAL IV DATA: Not applicable SIGNED BY: Dwight Cheema January 19, 2025 2:55 PM documented in this encounterMer[facility] St. [facility]04-09-2025 NoteA[facility]04-08-2025 History of Present illness Narrative* Ivett Blackburn [...] PATIENT PRESENTS WITH AN IMPLANTABLE OR ATTACHED DECORATIVE ENGRAVER APPRENTICE: No RADIOLOGY DEPARTMENT: Ultrasound PERIPHERAL IV DATA: Not applicable SIGNED BY: Ivett Blackburn RDMS January 18, 2025 2:34 PM documented in this encounterMercy [facility] St. [facility]04-08-2025 NoteA[facility]04-04-2025 Telephone encounter Note* Telephone Encounter - Frank Joya LPN - 01/14/2025 1:56 PM EDT Collections RepZaira, notified of results/provider instructions. She verbalized understanding. Frank Joya LPN [facility]04-04-2025 Miscellaneous Notes* Telephone Encounter - Frank Joya LPN - 01/14/2025 1:56 PM EDT Collections RepZaira, notified of results/provider instructions. She verbalized understanding. Frank Joya LPN * Telephone Encounter - Radha Batista APRN.[employer]URBINE ASSEMBLER - 01/14/2025 1:24 PM EDT Images from the original note were not included. It looks like this was ran on 01/11. Sodium is still low, but there was some improvement. Please do not restrict sodium in diet and continue to not over- drink. Recheck sodium in 2 weeks -- order is in. documented in this encounterMer[facility]04-04-2025 Telephone encounter Note * Telephone Encounter - Radha Batista APRN.PAVITHRA - 01/14/2025 1:24 PM EDT Images from the original note were not included. It looks like this was ran on 01/11. Sodium is still low, but there was some improvement. Please do not restrict sodium in diet and continue to not over- drink. Recheck sodium in 2 weeks -- order is in. [facility]04-02-2025 Telephone encounter Note* Telephone Encounter - Adrianne Saldivar LPN - 01/12/2025 1:19 PM EDT Lab orders are being corrected. Just need to reorder BMP and hepatic or can be CMP. Notify this nurse when ordered please. [facility]04-02-2025 Miscellaneous Notes* Telephone Encounter - Adrianne Saldivar LPN - 01/12/2025 1:19 PM EDT Lab orders are being corrected. Just need to reorder BMP and hepatic or can be CMP. Notify this nurse when ordered please. documented in this encounterMer[facility]. [facility]04-02-2025 Instructions* Patient Instructions* Aleksandar Jones MD - 01/12/2025 10:49 AM EDT Brenda should be on a liter and half of fluid in 24 hours. No more. Get labs today and then again in one month documented in this encounterMer[facility]. [facility]04-02-2025 Telephone encounter Note * Telephone Encounter - Adrianne Saldivar LPN - 01/12/2025 10:12 AM EDT Patient in office today to discuss. [facility]04-02-2025 Miscellaneous Notes* Telephone Encounter - Adrianne [...] they will see her. documented in this encounterMer[facility]. [facility]04-02-2025 NoteA[facility]04-02-2025 History of Present illness Narrative* Aleksandar Jones [...] Lymph 1.00 - 4.00 k/uL 2.70 2.24 Garland% % 4.8 7.9 Abs Garland <0.87 k/uL 0.56 0.84 Eosin% % 0.3 [...] HISTORY Diagnosis Date Bilateral pneumonia 07/23/2018 Admit [facility]: pneumococcal suspected, neg culture. + rhinovirus [...] Comment: kasiedenise- Teen yrs, but not now Reviewed current [...] stable. Aleksandar Jones MD documented in this encounterMercy Health [facility]. [facility]03-28-2025 Telephone encounter Note * Telephone Encounter - Tonie Escobar MA - 01/07/2025 4:28 PM EDT Left message for patient to call office back Tonie Escobar MA [facility]03-26-2025 Telephone encounter Note* Telephone Encounter - Radha Batista APRN.CNP - 01/05/2025 12:11 PM EDT Noted. Radha Batista APRN.CNP [facility]03-26-2025 Miscellaneous Notes* Telephone Encounter - Radha Batista APRN.CNP - 01/05/2025 12:11 PM EDT Noted. Radha Batista APRN.CNP * Telephone Encounter - Shirley Romero RN - 01/05/2025 10:14 AM EDT Steph Recio calling from [facility] and asking this office to notify [facility] that pt's Jardiance is being held (per previous note below) until lab recheck next week, in regard to pt's pill-packaging service there. This nurse updated [facility] as requested. Steph also requesting pt's last OV note to be faxed to [facility] along with documentation of order for pt to hold Jardiance, in regard to pt's Jail requirements. Information faxed as requested to FAX #: [phone]. Sihrley Romero RN * Telephone Encounter - Frank Joya LPN - 01/04/2025 4:47 PM EDT Spoke /c caregiver, Fransisca, notified of results/provider instructions. Fransisca states they do try to watch her water intake. Fransisca is asking for a new order for compression stockings to be sent to [facility] [place] [facility] d/t pt threw the last pr [...] in. Radha Batista APRN.PAVITHRA documented in this encounterMer[facility]03[facility]25 Telephone encounter Note * Telephone Encounter - Aleksandar Jones MD - 01/05/2025 11:35 AM EDT Let them know ID felt the labs were likely a false positive. They recommended that we repeat some labs again in four to six weeks and if need be they will see her. [facility]03-26-2025 Telephone encounter Note* Telephone Encounter - Shirley Romero RN - 01/05/2025 10:14 AM EDT Steph Recio calling from [facility] and asking this office to notify [facility] that pt's Jardiance is being held (per previous note below) until lab recheck next week, in regard to pt's pill-packaging service there. This nurse updated [facility] as requested. Steph also requesting pt's last OV note to be faxed to [facility] along with documentation of order for pt to hold Jardiance, in regard to pt's Jail requirements. Information faxed as requested to FAX #: [phone]. Shirley Romero RN [facility]03-26-2025 [facility] History of Present illness Narrative* Jey Brown [...] MD January 05, 2025 documented [address] [facility] [address]. [facility]03-25-2025 Telephone encounter Note * Telephone Encounter - Frank Joya LPN - 01/04/2025 4:47 PM EDT Spoke /c caregiver, Fransisca, notified of results/provider instructions. Fransisca states they do try to watch her water intake. Fransisca is asking for a new order for compression stockings to be sent to [facility] [place] [facility] d/t pt threw the last pr away. Frank Joya LPN [facility]03-25-2025 Telephone encounter Note* Telephone Encounter - Maye Ferrer LPN - 01/04/2025 2:45 PM EDT Patient Guardian Kaya Fuller returned call and went over results, notes from Dr Jones with understanding. Kaya said patient lives in a senior care and she is going to have them call and schedule her ultrasound appt, and lab work. [facility]03-25-2025 Miscellaneous Notes* Telephone Encounter - Maye Ferrer LPN - 01/04/2025 2:45 PM EDT Patient Guardian Kaya Fuller returned call and went over results, notes from Dr Jones with understanding. Kaya said patient lives in a senior care and she is going to have them call and schedule her ultrasound appt, and lab work. * Telephone Encounter - Joselyn Hendricks MA - 01/04/2025 1:56 PM EDT Message left for wilber Kaya to return call. Joselyn Hendricks MA * [...] and let her know documented in this encounterMer[facility] Health St. [facility]03-25-2025 Telephone encounter Note * Telephone Encounter - Joselyn Hendricks MA - 01/04/2025 1:56 PM EDT Message left for wilber Kirkpatrick to return call. Joselyn Hendricks MA [facility]03-25-2025 Telephone encounter Note* Telephone Encounter - Radha Batista APRN.PAVITHRA - 01/04/2025 12:54 PM EDT Can please let patient/caregiver know that I received her labs. Her sodium is too low. This could be causing some of her leg symptoms. Lets have her hold the jardiance for now. She needs to restrict fluids to 800cc-1000cc per day. Repeat labs and urine next week.The order is in. Radha Batista APRN.STEAM AND GAS TURBINE ASSEMBLER [facility]03-25-2025 Telephone encounter Note* Telephone Encounter - [...] for further followup and let her know [facility]03-24-2025 Telephone encounter Note* Telephone Encounter - [...] Smart RN January 03, 2025 9:[address] [facility]03-24-2025 Miscellaneous Notes* Telephone Encounter - Alma [...] 03, 2025 9:03 AM documented in this encounterMercy Health St. [facility]03-21-2025 Telephone encounter Note * Telephone Encounter - Edel Katz LPN - 12/31/2024 1:31 PM EDT Patient notified of results, verbalizes understanding of instructions. Edel Katz LPN [facility]03-21-2025 Miscellaneous Notes* Telephone Encounter - Edel Katz LPN - 12/31/2024 1:31 PM EDT Patient notified of results, verbalizes understanding of instructions. Edel Katz LPN * Telephone Encounter - Radha Batista APRN.CNP - 12/31/2024 1:01 PM EDT Can please let patient know that I received her lab results. Her sodium is a little low. Please make sure she isn't drinking too much water and follow her restriction. Recheck lab in 1-2 weeks. documented in [address] encounterMer[facility]. [facility]03-21-2025 Telephone encounter Note * Telephone Encounter - Radha Batista APRN.CNP - 12/31/2024 1:01 PM EDT Can please let patient know that I received her lab results. Her sodium is a little low. Please make sure she isn't drinking too much water and follow her restriction. Recheck lab in 1-[address] [facility]03-21-2025 Telephone encounter Note* Telephone Encounter - Eunice Spivey RN - 12/31/2024 10:53 AM EDT Patient notified of results and provider's instructions. Patient verbalizes understanding. Eunice Spivey RN [facility]03-21-2025 Miscellaneous Notes* Telephone Encounter - Eunice [...] however to be sure. documented in this encounterMercy Health St. [facility]03-20-2025 Telephone encounter Note * Telephone Encounter - Cristal White RN - 12/30/2024 4:52 PM EDT Called and left a message for the Patient to call back and ask for a nurse to receive the providersmessage. Cristal White, RN [facility]03-20-2025 [facility]03-20-2025 History of Present illness Narrative* Alexandra Kemp - 12/30/2024 4:24 PM EDT POPULATION HEALTH NAVIGATION OUTREACH Action/[facility] [place] Support: Called pt to schedule an appt in Pain Management. PT was not in. Jerome fall took down the message for the pt to call [phone]. Stated that the number I called is for agro home. Any agent can assist with scheduling Reason for Outreach Care Gap/HCC or Scheduling Wellness Visits Care Gaps due: N/A Patient Contacted: Unable or unnecessary to reach patient: Left message Navigation Signature: Alexandra Kemp December 30, 2024 4:24 PM documented in this encounterMercy Health St. [facility]03-20-2025 Telephone encounter Note * Telephone Encounter - Aleksandar Jones MD - 12/30/2024 1:11 PM EDT Her liver is better. Her hep b studies are equivocal. May be in error or could have had hep b in the past. Repeat full hep b panel however to be sure. [facility]03-20-2025 Telephone encounter Note* Telephone Encounter - [...] Ferrer LPN December 30, 2024 10:[address] [facility]03-20-2025 Miscellaneous Notes* Telephone Encounter - Maye [...] 30, 2024 10:03 AM documented in this encounterMer[facility] St. [facility]03-18-2025 NoteA[facility]03-18-2025 History of Present illness Narrative* Aleksandar Jones [...] Abs Lymph 1.00 - 4.00 k/uL 2.33 Garland% % 6.9 Abs Garland <0.87 k/uL 0.76 Eosin% % 0.1 Abs [...] HISTORY Diagnosis Date Bilateral pneumonia 07/23/2018 Admit [facility]: pneumococcal suspected, neg culture. 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, pt was on metformin for a [...] psych Aleksandar Jones MD documented in this encounterMercy Health St. [facility]03-11-2025 Discharge summary [facility] Medical Records Department [address] [place] [address] Emergency Department Summary 12/21/24 MR#: [id number] Acct: [id number] Name: BRENDA LE Rep #:[id number] : 1965 59 From: Babak Garcia DO PCP: Shelia Salmon, FOUNDER AND CEO Status:REG ER Location: ED HPI History of [...] 2 ill individuals right now in her senior care. Patient states that she has been wheezing a lot lately. Per EMS they did not give any breathing treatments as her lungs were clear for them. [facility] Medical History Obesity (BMI 30-39.9) Hyponatremia [...] 325 mg tablet,delayed 325 mg PO DAILY@1600 [facility] 07/22/18 07/30/21 History release omeprazole [...] of cholecystectomy Social History housing: other details: shelter. Smoking Status: Former smoker how long ago [...] H Lymph % (Auto) Cancelled 8.6 L Garland % (Auto) Cancelled 4.7 Eos % (Auto) [...] Drop Cells Cancelled Ovalocytes Cancelled Stomatocytes Cancelled Mtz-Blevins Bodies Cancelled Sara Cells Cancelled Bite Cells [...] Clarity Clear Urine pH 6.5 Ur Specific [place] 1.010 Urine Protein 15 H Urine Glucose [...] (Auto) Neut % (Auto) Lymph % (Auto) Garland % (Auto) Eos % (Auto) Baso % [...] Target Cells Tear Drop Cells Ovalocytes Stomatocytes Mtz-Blevins Bodies [place] Cells Bite Cells Crenated Cell Acanthocytes (Spur) [...] Color Urine Clarity Urine pH Ur Specific [place]ina Urine Protein Urine Glucose (UA) Urine Ketones Urine Occult Blood Urine Nitrite Urine Bilirubin Urine Urobilinogen Ur Leukocyte Esterase Urine RBC Urine WBC Ur Squamous Epith Cells Urine Bacteria Urine Mucus Radiography Diagnostic Testing: Clinical Impression(s) from Imaging Studies Chest X-Ray 12/21/24 08:48 IMPRESSION: Pulmonary venous congestion. Reading [facility] Discharge Plan Triage Chief Complaint: Shortness of [...] Care Provider: Shelia Salmon Referrals: Shelia Salmon, FOUNDER AND CEO [Primary Care Provider] - Activity Restrictions/Additional Instructions: You tested positive for COVID-19 here in the emergency department. Start the steroid that was sent to your pharmacy tomorrow as you were given a dose here today already. Use Zofran as needed for nausea. Ensure adequate hydration. Return with worsening symptoms or any concerns. Follow-up with your doctor in outpatient setting. Print Language: Solomon Islander Disposition Disposition: Home, Self Care What to do if you have Problems For any increased pain, shortness of breath, bleeding, nausea or vomiting, chestpain, or any unexpected problems, contact your Primary Care Provider. Call [facility] ([phone]) or report tothe closest Emergency Room. Call 911 if necessary. 12/21/24 1214 Cosigner Signature (if applicable): CC: ESEQUIEL Salmon ~ Signed [facility]03-11-2025 Radiology Diagnostic study note [facility] Imaging Services [address] [place] [address] Chest PA and Lateral MR#: [id number] Acct: [id number] Name: BRENDA LE Rep #: [id number] : 1965 F 59 From: Naomi Carlos MD PCP: ESEQUIEL Headley Status: REG ER Study:Chest PA and Lateral Date of Exam: 12/21/24 Exam# [id number] Ordering Dr: Geena Garcia DO EXAM: XR Chest, 2 Views CLINICAL INDICATION: SOB TECHNIQUE: Frontal and lateral views of the chest. COMPARISON: No relevant prior studies available. FINDINGS: LUNGS AND PLEURAL SPACES: Pulmonary venous congestion. No consolidation. No pneumothorax. HEART: Unremarkable. No cardiomegaly. MEDIASTINUM: Unremarkable. Normal mediastinal contour. BONES/JOINTS: Unremarkable. No acute fracture. RAD/Chest PA and Lateral IMPRESSION: Pulmonary venous congestion. Reading Location: [facility] CC: ESEQUIEL Salmon; Dr. Babak Garcia DO ~ [place]: Signed [facility]02-26-2025 Telephone encounter Note* Telephone Encounter - Eunice Spivey RN - 12/08/2024 4:20 PM EST Ivett from [facility] calls and states that she knows medication [...] Spivey RN December 08, 2024 4:[address] [facility]02-26-2025 Miscellaneous Notes* Telephone Encounter - Eunice Spivey RN - 12/08/2024 4:20 PM EST Ivett from [facility] calls and states that she knows medication [...] 08, 2024 4:21 PM documented in this encounterMer[facility] Health St. [facility]02-26-2025 Telephone encounter Note * Telephone Encounter - Frank Joya LPN - 12/08/2024 9:41 AM EST TC to pt, spoke with caregiverBreanna. Notified of results/provider response. Breanna verbalized understanding. Frank Joya LPN [facility]02-26-2025 Miscellaneous Notes* Telephone Encounter - Frank Joya LPN - 12/08/2024 9:41 AM EST TC to pt, spoke with caregiverBreanna. Notified of results/provider response. Breanna verbalized understanding. Frank Joya LPN * Telephone Encounter - Radha Batista APRN.CNP - 12/07/2024 5:40 PM EST Can please let patient know that her chest xray was normal. Radha Batista APRN.CNP documented in this encounterMercy Health St. [facility]02-25-2025 Telephone encounter Note * Telephone Encounter - Radha Batista APRN.CNP - 12/07/2024 5:40 PM EST Can please let patient know that her chest xray was normal. Radha Batista APRN.CNP [facility]02-25-2025 History of Present illness Narrative* Katie [...] PATIENT PRESENTS WITH AN IMPLANTABLE OR ATTACHED DECORATIVE ENGRAVER APPRENTICE: No RADIOLOGY DEPARTMENT: General X-ray: Exam(s) Completed: Chest X-Ray PERIPHERAL IV DATA: Not applicable SIGNED BY: Nancy Pretty December 07, 2024 11:52 AM documented in this encounterMercy Health St. [facility]02-25-2025 [facility]02-25-2025 Instructions* Patient Instructions* Radha Batista APRN.CNP - 12/07/2024 10:35 AM EST Get the chest xray. Start the tylenol 650 mg twice daily. Recheck in 2-4 weeks. documented in [address] encounterMer[facility] St. [facility]02-25-2025 NoteA[facility]02-25-20[facility] History of Present illness Narrative* Radha Batista [...] HISTORY Diagnosis Date Bilateral pneumonia 07/23/2018 Admit [facility]: pneumococcal suspected, neg culture. 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, pt was on metformin for a [...] improvement. Radha Batista APRN.PAVITHRA documented in this encounterMercy Health St. [facility]02-21-2025 Telephone encounter Note * Telephone Encounter - Frank Joya LPN - 12/03/2024 3:10 PM EST Pt notified. She verbalized understanding. Frank Joya LPN [facility]02-21-2025 Miscellaneous Notes* Telephone Encounter - Frank [...] advise, Eunice Spivey RN documented in this encounterMercy Health St. [facility]02-21-2025 Telephone encounter Note * Telephone Encounter - Radha Batista APRN.CNP - 12/03/2024 2:03 PM EST Ultrasound of the legs was normal. [facility]02-21-2025 Telephone encounter Note* Telephone Encounter - Eunice Spivey RN - 12/03/2024 9:46 AM EST Patient calling and asking about ultrasound results. Please review and advise, Eunice Spivey RN [facility]02-17-2025 Telephone encounter Note* Telephone Encounter - Cristal White RN - 11/29/2024 8:57 AM EST Pts rn homecare Breanna called in to go over dates and times of Pts upcoming appointments. Went over these with her and where the Vascular study was located. [facility]02-17-2025 Miscellaneous Notes* Telephone Encounter - Cristal White RN - 11/29/2024 8:57 AM EST Pts rn homecare Breanna called in to go over dates and times of Pts upcoming appointments. Went over these with her and where the Vascular study was located. documented in this encounterMer[facility]. [facility]02-13-2025 Telephone encounter Note * Telephone Encounter - Shelia Salmon APRN.CNP - 11/25/2024 5:41 PM EST The following approved medication requests have been transmitted electronically. Requested Prescriptions Pending Prescriptions Disp Refills docusate sodium (COLACE) 100 mg capsule 60 capsule 5 Sig: Take 1 capsule by mouth two times a day. Shelia Salmon APRN.CNP [facility]02-13-2025 Miscellaneous Notes* Telephone Encounter - Shelia [...] day. Shirley Romero RN documented in this encounterMercy Health St. [facility]02-13-2025 Telephone encounter Note * Telephone Encounter [...] two times a day. Shirley Romero RN [facility]02-12-2025 Telephone encounter Note* Telephone Encounter - [...] of breath. Shirley Zuniga 2024 2:[address] [facility]02-12-2025 Miscellaneous Notes* Telephone Encounter - Shirley [...] Zuniga 2024 2:40 PM documented in this encounterMercy Health St. [facility]01-31-2025 [facility] Medical Records Department [address] [facility] [place] [address] Discharge Summary 11/12/24 1040 MR#: [id number] Acct: [id number] Name: BRENDA LE Rep #: [id number] : 1965 58 From: Ana Lilia Lebron DO PCP: ESEQUIEL Headley Status:DIS IN Location: MS3 [id number] Providers Date of Admission: 11/09/24 Date of [...] female presented to the emergency room at [facility] from a local senior care with fever and cough. She was seen at an urgent care and told to come to the emergency room when it was discovered that the semiconductor processing group leader stated they could not give her any [...] and inpatient treatment, she was admitted to [place] [address] and initially placed on 2 antibiotics, I evaluated the patient and did not feel she needed IV vancomycin and stop this medication. Patient improved during her hospitalization was weaned off oxygen eventually. On 11/12/2024, patient was seen and examined: On examination she appea (more content notincluded)...[facility]01-29-2025 Telephone encounter Note* Telephone Encounter - Frank Joya LPN - 11/10/2024 9:58 AM EST Phoned jesse Pollard /christian Huang, notified of provider instructions. She verbalized understanding. Frank Joya LPN [facility]01-29-2025 Miscellaneous Notes* Telephone Encounter - Frank Joya LPN - 11/10/2024 9:58 AM EST Phoned jesse Pollard /christian Huang, notified of provider instructions. She verbalized understanding. Frank Joya LPN * Telephone Encounter - Radha Batista APRN.[facility] - 11/10/2024 9:34 AM EST Thank you for the update. No, we did not have the mucinex on our medication list. I updated her medication list. Yes, can we please increase it to twice daily for 10 days, then resume the previous dose. Radha Batista APRN.PAVITHRA * Telephone Encounter - Nerissa Bedolla LPN - 11/10/2024 9:24 AM EST [facility] is calling asking about the mucinex. PATIENT already takes 2 tablets every morning. Pharmacy is asking if you wish for patient to take the 2 tablets twice daily for just a shortperiod of time? They wanted to make sure the office knew patient was already taking 2 a day. Please review and advise further. Nerissa Bedolla LPN documented in this encounterMercy Health St. [facility]01-29-2025 Telephone encounter Note * Telephone Encounter - Radha Batista APRN.PAVITHRA - 11/10/2024 9:34 AM EST Thank you for the update. No, we did not have the mucinex on our medication list. I updated her medication list. Yes, can we please increase it to twice daily for 10 days, then resume the previous dose. Radha Batista APRN.PAVITHRA [facility]01-29-2025 Telephone encounter Note* Telephone Encounter - Nerissa Bedolla LPN - 11/10/2024 9:24 AM EST [facility] is calling asking about the mucinex. PATIENT already takes 2 tablets every morning. Pharmacy is asking if you wish for patient to take the 2 tablets twice daily for just a shortperiod of time? They wanted to make sure the office knew patient was already taking 2 a day. Please review and advise further. Nerissa Bedolla LPN [facility]01-29-2025 Evaluation note* Diagnosis Onset Date Resolution Status Admit Date Schizophrenia acute October 11:49pm COPD exacerbation inactive November 09, 2024 11:49pm Hyponatremia inactive October 11:49pm Leukocytosis inactive October 11:49pm Obesity (BMI 30-39.9) inactive Marco Antonio cora 2024 11:49pm Pneumonia inactive November 09, 2024 11:49pm Respiratory insufficiency inactive November 09, 2024 11:49pm [facility] Work Phone: 1(885) 154-947101-28-2025 History of Present illness Narrative* Neelima Amador [...] PATIENT PRESENTS WITH AN IMPLANTABLE OR ATTACHED DECORATIVE ENGRAVER APPRENTICE: No RADIOLOGY DEPARTMENT: General X-ray: Exam(s) Completed: Chest X-Ray PERIPHERAL IV DATA: Not applicable SIGNED BY: RT Sanrda(R) November 09, 2024 5:34 PM documented in this encounterMercy Health St. [facility]01-28-2025 NoteA[facility]01-28-2025 NoteA[facility]01-28-2025 History of Present illness Narrative* Zaira Mancilla APRN.PAVITHRA - 11/09/2024 5:24 PM EST CC: Patient [...] treatment a day. She lives in a senior care and is accompanied with one of her [...] HISTORY Diagnosis Date Bilateral pneumonia 07/23/2018 Admit [facility]: pneumococcal suspected, neg culture. 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, pt was on metformin for a [...] and frontal sinus tenderness present. Mouth/Throat: Lips: [place]. Mouth: Mucous membranes are moist. Pharynx: Posterior [...] symptoms. After the caregiver spoke to the senior care and pharmacy, it was decided to take the patient to [facility] ED due to the inability of securing the antibiotics this evening and administering breathing treatments required. Report called to [facility] ED, spoke with ED attending. 2. [...] A&B MOLECULAR (POC) Maty Atkinson TEACHING PROVIDER (Physician/PA/EDGE BANDING OFF BEARER) NOTE OF PERSONAL INVOLVEMENT IN CARE: I have personally seen and examined the patient and performed the medical decision-making components. I have reviewed the Advanced Practice Registered Nurse (EDGE BANDING OFF BEARER) Student's documentation and verified the findings in the note as written. Any additions or changes are noted in bold/italics. Signature: Zaira Mancilla Date: 11/09/2024 Time: 7:23 PM documented in this encounterMercy Health St. [facility]01-28-2025 Telephone encounter Note * Telephone Encounter - Frank Joya LPN - 11/09/2024 4:08 PM EST Spoke /c geoscientist at senior care, notified of provider response. She verbalized understanding. Frank Joya LPN [facility]01-28-2025 Miscellaneous Notes* Telephone Encounter - Frank Joya LPN - 11/09/2024 4:08 PM EST Spoke /c geoscientist at senior care, notified of provider response. She verbalized understanding. Frank Joya LPN * Telephone Encounter - Radha Batista APRN.STEAM AND GAS TURBINE ASSEMBLER - 11/09/2024 2:55 PM EST Lets go [...] have a swab for covid/flu/rsv. Radha Batista APRN.[employer] AND G[employer] TURBINE ASSEMBLER * Telephone Encounter - Anusha Hansen RN - 11/09/2024 2:30 PM EST Breanna with Jail calls with patient. Below messages reviewed with [...] for something OTC can be sent to [facility] as they can't give anything topatient that is not prescribed and she is asking for something for symptoms. Call back number is [phone]. Anusha Hansen RN * Telephone Encounter - [...] bad cholesterol is good! documented in this encounterMercy Health St. [facility]01-28-2025 Telephone encounter Note * Telephone Encounter [...] a swab for covid/flu/rsv. Radha Batista APRN.PAVITHRA [facility]01-28-2025 Telephone encounter Note* Telephone Encounter - Anusha Hansen RN - 11/09/2024 2:30 PM EST Breanna with Jail calls with patient. Below messages reviewed with [...] for something OTC can be sent to [facility] as they can't give anything topatient that is not prescribed and she is asking for something for symptoms. Call back number is [phone]. Anusha Hansen RN [facility]01-27-2025 Telephone encounter Note* Telephone Encounter - Татьяна Escobar MA - 11/08/2024 10:13 AM EST Tried to reach pt, line just rings. Will try again later. Татьяна Escobar MA [facility]01-24-2025 Telephone encounter Note* Telephone Encounter [...] labwork non-fasting. Her bad cholesterol is good! [facility]01-21-2025 History of Present illness Narrative* [...] PATIENT PRESENTS WITH AN IMPLANTABLE OR ATTACHED DECORATIVE ENGRAVER APPRENTICE: No RADIOLOGY DEPARTMENT: General X-ray: Exam(s) Completed: Spine X-Ray(s): Lumbar AP / LAT / L5-S1 PERIPHERAL IV DATA: Not applicable SIGNED jamaica Reeves November 02, 2024 3:28 PM documented in this encounterMer[facility] Health [facility]01-21-2025 NoteA[facility]01-21-2025 Instructions* Patient Instructions* Radha Batista APRN.CNP - 11/02/2024 2:47 PM EST Get the labs. Get the xray. Schedule the circulation test. Increase the afternoon gabapentin to 200 mg. documented in [address] encounterMer[facility] Health [facility]. [facility]01-21-2025 [facility]01-21-2025 History of Present illness Narrative* Radha [...] HISTORY Diagnosis Date Bilateral pneumonia 07/23/2018 Admit [facility]: pneumococcal suspected, neg culture. 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 [facility], pt was on metformin for a [...] as needed for worsening/no improvement. Radha Batista APRN.STEAM AND GAS TURBINE ASSEMBLER documented in this encounterMercy Health St. [facility]01-17-2025 Telephone encounter Note * Telephone Encounter [...] Hansen RN October 29, 2024 11:[address] [facility]01-17-2025 Miscellaneous Notes* Telephone Encounter - Anusha [...] 29, 2024 11:51 AM documented in this encounterMer[facility] Health St. [facility]12-23-2024 Telephone encounter Note * Telephone Encounter [...] mouth daily with breakfast. Shirley Romero RN [facility]12-23-2024 Miscellaneous Notes* Telephone Encounter - Shirley [...] breakfast. Shirley Romero RN documented in this encounterMercy Health St. [facility]12-17-2024 Instructions* Patient Instructions* Radha Batista APRN.CNP - 09/28/2024 1:40 PM EST Increase the gabapentin to 3 times daily. Recheck in 3 months, sooner if needed. documented in this encounterMercy Health St. Anne [facility]12-17-2024 NoteAult[facility]12-17-2024 History of Present illness Narrative* Radha [...] HISTORY Diagnosis Date Bilateral pneumonia 07/23/2018 Admit [facility]: pneumococcal suspected, neg culture. 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 [facility], pt [...] improvement. Radha Batista APRN.PAVITHRA documented in this encounterMercy Health St. [facility]12-13-2024 Telephone encounter Note * Telephone Encounter [...] Spivey RN September 24, 2024 8:[address] [facility]12-13-2024 Miscellaneous Notes* Telephone Encounter - Eunice [...] 24, 2024 8:16 AM documented in this encounterMer[facility] Health St. [facility]12-09-2024 NoteAult[facility]12-09-2024 History of Present illness Narrative* Fuentes Renee MD - 09/20/2024 1:03 PM EST Images from the original note were not included. Fuentes Renee MD Interventional Cardiology [address] [place] [address] [phone] Chief Complaint Patient presents with: yearly check [...] HISTORY Diagnosis Date Bilateral pneumonia 07/23/2018 Admit [facility]: pneumococcal suspected, neg culture. + rhinovirus [...] 1 capsule by mouth once daily. 30 [id number] aspirin, enteric coated (ASPIRIN, ENTERIC COATED) 325 [...] to correct any errors. documented in this encounterMercy Health St. [facility]11-27-2024 Instructions* Patient Instructions* Radha Batista APRN.CNP - 09/08/2024 9:45 AM EST Start the gabapentin. Take nightly X 3 days, then increase to twice daily. Recheck in 3-4 weeks. documented in [address] encounterMer[address] St. [facility]11-27-2024 NoteAultman [facility]11-27-2024 History of Present illness Narrative* Radha [...] HISTORY Diagnosis Date Bilateral pneumonia 07/23/2018 Admit [facility]: pneumococcal suspected, neg culture. 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 [facility], pt was on metformin for a [...] as needed for worsening/no improvement. Radha Batista APRN.STEAM AND GAS TURBINE ASSEMBLER documented in this encounterMercy Health St. [facility]11-19-2024 Telephone encounter Note * Telephone Encounter - Cristal White RN - 08/31/2024 9:39 AM EST Reina mattson [facility] reports the Basaglar is no longer on [...] White RN August 31, 2024 9:[address] [facility]11-19-2024 Miscellaneous Notes* Telephone Encounter - Cristal White RN - 08/31/2024 9:39 AM EST Reina mattson [facility] reports the Basaglar is no longer on [...] 31, 2024 9:42 AM documented in this encounterMercy Health St. [facility]11-12-2024 Note* Addendum Note - Shelia Salmon APRN.CNP - 08/24/2024 3:52 PM ESTAddended by: SHELIA SALMON on: 08/24/2024 03:52 PM Modules accepted: Orders [facility]11-12-2024 Miscellaneous Notes* Addendum Note - Shelia Salmon APRN.CNP - 08/24/2024 3:52 PM ESTAddended by: SHELIA SALMON on: 08/24/2024 03:52 PM Modules accepted: Orders documented in this encounterMercy Health St. [facility]11-12-2024 Instructions* Patient Instructions* Shelia Salmon APRN.CNP - 08/24/2024 3:39 PM EST 1) Doxycyline 100 mg 2 x day for 10 days (take with food) 2) Hold iron (Ferex) while on doxycyline 3) Medrol taper 4) Follow up in 10-14 days documented in this encounterMercy Health St. [facility]11-12-2024 NoteAultman [facility]11-12-2024 History of Present illness Narrative* Shelia [...] lot during the day Lives in a senior care, whole house is sick Feels hot Appetite comes and goes Wheezing at night- uses albuterol Red rash in groin that itches and minaya PAST MEDICAL HISTORY: PAST MEDICAL HISTORY Diagnosis Date Bilateral pneumonia 07/23/2018 Admit [facility]: pneumococcal suspected, neg culture. 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 [facility], pt was on metformin for a [...] some red patches on face from mask [place] rash in groin with cracks in seam [...] improvement. Shelia Salmon APRN.CNP documented in this encounterMercy Health St. [facility]11-08-2024 Telephone encounter Note * Telephone Encounter - Radha Batista APRN.CNP - 08/20/2024 1:17 PM EST Script sent. Radha Batista APRN.CNP [facility]11-08-2024 Miscellaneous Notes* Telephone Encounter - Radha Batista APRN.CNP - 08/20/2024 1:17 PM EST Script sent. Radha Batista APRN.CNP * Telephone Encounter - Carla Ayon LPN - 08/20/2024 8:19 AM EST Dorie from [facility] calls requesting a script for pt for a generic lancing device. The lancets go into this. Script pended. documented in this encounterMercy Health St. [facility]11-08-2024 Telephone encounter Note * Telephone Encounter - Carla Ayon LPN - 08/20/2024 8:19 AM EST Dorie from [facility] calls requesting a script for pt for a generic lancing device. The lancets go into this. Script pended. [facility]11-06-2024 Telephone encounter Note* Telephone Encounter - Maye Ferrer LPN - 08/18/2024 1:43 PM EST Phoned spoke to Breanna and went over notes from Christian Batista MEMBERSHIP SALES MANAGER with understanding. Aware rx sent to the pharmacy. [facility]11-06-2024 Miscellaneous Notes* Telephone Encounter - Maye Ferrer LPN - 08/18/2024 1:43 PM EST Phoned spoke to Breanna and went over notes from Christian Batista MEMBERSHIP SALES MANAGER with understanding. Aware rx sent to the pharmacy. * Telephone Encounter - Rahda Batista APRN.CNP - 08/18/2024 12:46 PM EST Yes, she should have a rescue inhaler for as needed. Script sent. Radha Batista APRN.PAVITHRA * Telephone Encounter - Adrianne Saldivar LPN - 08/18/2024 9:22 AM EST Patient does have an albuterol inhaler there but is . She is using her daily inhaler as ordered. * Telephone Encounter - Edilia Monroe - 08/18/2024 8:[address] [facility] Residential Caregiver Caller Name: Breanna Call Back Number [phone] Reason for Call: Other Medication question Additional Information: Breanna is asking if Brenda should still have the Rescue inhaler Albuterol sulfate 90 mcg. If so, she would need it refilled at [facility] Please call Brenana back. documented in this encounterMercy Health St. [facility]11-06-2024 Telephone encounter Note * Telephone Encounter - Radha Batista APRN.CNP - 08/18/2024 12:46 PM EST Yes, she should have a rescue inhaler for as needed. Script sent. Radha Batista APRN.STEAM AND GAS TURBINE ASSEMBLER [facility]11-06-2024 Telephone encounter Note* Telephone Encounter - Adrianne Saldivar LPN - 08/18/2024 9:22 AM EST Patient does have an albuterol inhaler there but is . She is using her daily inhaler as ordered. [facility]11-06-2024 Telephone encounter Note* Telephone Encounter - Edilia Monroe - 08/18/2024 8:[address] [facility] Residential Caregiver Caller Name: Breanna Call Back Number [phone] Reason for Call: Other Medication question Additional Information: Breanna is asking if Brenda should still have the Rescue inhaler Albuterol sulfate 90 mcg. If so, she would need it refilled at [facility] Please call Breanna back. [facility] Work Phone: [phone]) 389-565211-04-2024 Telephone encounter Note* Telephone Encounter - Frank Joya LPN - 08/16/2024 6:14 PM EST Breanna notified. She verbalized understanding. Frank Joya LPN [facility]11-04-2024 Miscellaneous Notes* Telephone Encounter - Frank Joya LPN - 08/16/2024 6:14 PM EST Breanna notified. She verbalized understanding. Frank Joya LPN * Telephone Encounter - Radha Batista APRN.CNP - 08/16/2024 6:07 PM EST Script sent. Radha Batista APRN.CNP * Telephone Encounter - Edilia Monroe - 08/16/2024 4:21 PM EST [facility] Caller Name: Breanna Call Back Number [phone] Reason for Call: Order for Cough Drops Additional Information: Breanna is calling because the senior care is unable to give the residents any medication without an order and they would like to provide her with cough drops as necessary. They are asking if it be generic in type and if not a Steens type product. [facility]. documented in this encounterMercy Health St. [facility]11-04-2024 Telephone encounter Note * Telephone Encounter - Radha Batista APRN.CNP - 08/16/2024 6:07 PM EST Script sent. Radha Batista APRN.PAVITHRA [facility]11-04-2024 Telephone encounter Note* Telephone Encounter - Edilia Monroe - 08/16/2024 4:21 PM EST [facility] Caller Name: Breanna Call Back Number [phone] Reason for Call: Order for Cough Drops Additional Information: Breanna is calling because the senior care is unable to give the residents any medication without an order and they would like to provide her with cough drops as necessary. They are asking if it be generic in type and if not a Steens type product. [facility]. [facility] Work Phone: [phone] Telephone encounter Note* Telephone Encounter - Shirley [...] at bedtime. For cholesterol. Shirley Romero RN [facility]10-25-2024 Miscellaneous Notes* Telephone Encounter - Shirley [...] cholesterol. Shirley Romero RN documented in this encounterMercy Health St. [facility]10-19-2024 Telephone encounter Note * Telephone Encounter [...] have any questions, you can call Nurse political consultant back. [facility]10-19-2024 Miscellaneous Notes* Telephone Encounter - Barbara [...] have any questions, you can call Nurse political consultant back. documented in this encounterMercy Health St. [facility]10-19-2024 Telephone encounter Note * Telephone Encounter - Joselyn Hendricks MA - 07/31/2024 11:31 AM EDT [place], caregiver informed and given instruction. She verbalized understanding. Joselyn Hendricks MA [facility]10-19-2024 Miscellaneous Notes* Telephone Encounter - Joselyn Hendricks MA - 07/31/2024 11:31 AM EDT Ar[place]he, caregiver informed and given instruction. She verbalized understanding. Joselyn Hendricks MA * Telephone Encounter - Aleksandar Jones MD - 07/31/2024 11:28 AM EDT See if can monitor bp and heart rate at least twice today. If increased sedation, chest pain, dizziness etc, to ER * Telephone Encounter - Maye Ferrer LPN - 07/31/2024 11:06 AM EDT Jaime patient animal caregiver calling patient had taken another senior care patient medications before 8am when she came [...] this morning. Please advise documented in this encounterMercy Health St. [facility]10-19-2024 Telephone encounter Note * Telephone Encounter - Aleksandar Jones MD - 07/31/2024 11:28 AM EDT See if can monitor bp and heart rate at least twice today. If increased sedation, chest pain, dizziness etc, to ER [facility]10-19-2024 Telephone encounter Note* Telephone Encounter - Maye Ferrer LPN - 07/31/2024 11:06 AM EDT Jaime patient animal caregiver calling patient had taken another senior care patient medications before 8am when she came [...] own medications also this morning. Please advise [facility]10-19-2024 Telephone encounter Note* Telephone Encounter - [...] notified of above and conferenced to caller. T [facility]10-19-2024 Miscellaneous Notes* Telephone Encounter - Malcolm [...] and conferenced to caller. documented in this encounterMercy Health St. [facility]10-17-2024 Telephone encounter Note * Telephone Encounter - Petrona Jaimes RN - 07/29/2024 2:13 PM EDT Breanna, caregiver at [facility] calling with request for script for new pair of compression stockings. Pended per previous order. Petrona Jaimes RN [facility]10-17-2024 Miscellaneous Notes* Telephone Encounter - Petrona Jaimes RN - 07/29/2024 2:13 PM EDT Breanna, caregiver at [facility] calling with request for script for new pair of compression stockings. Pended per previous order. Petrona Jaimes RN documented in this encounterMercy Health St. [facility]10-11-2024 NoteAultman [facility]10-11-2024 History of Present illness Narrative* Adriano Menezes APRN.STEAM AND GAS TURBINE ASSEMBLER - 07/23/2024 9:09 AM EDT Subjective HPI [...] managed as type 2 (HCC) found at [facility], pt was on metformin for a [...] mouth two times a day. Comp Stocking,Knee,Regular,[facility] Patient to be measured for correct [...] care. Adriano Menezes APRN.PAVITHRA documented in this encounterMercy Health St. [facility]10-10-2024 Telephone encounter Note * Telephone Encounter - Tonie Escobar MA - 07/22/2024 10:41 AM EDT Breanna was notified Tonie Escobar MA [facility]10-10-2024 Miscellaneous Notes* Telephone Encounter - Tonie [...] 10:14 AM EDT Breanna with the [facility] calls and states that they have been [...] advise, Eunice Spivey RN documented in this encounterMercy Health St. [facility]10-10-2024 Telephone encounter Note * Telephone Encounter - Shelia Salmon APRN.CNP - 07/22/2024 10:27 AM EDT They do not need to check blood pressure every day. Maybe once a week would be good. As you alreadyknow, no fast acting insulin at bedtime. [facility]10-10-2024 Telephone encounter Note* Telephone Encounter - Eunice Spivey RN - 07/22/2024 10:14 AM EDT Breanna with the [facility] calls and states that they have been [...] Please review and advise, Eunice Spivey RN [facility]10-02-2024 Telephone encounter Note* Telephone Encounter - Adrianne Saldivar LPN - 07/14/2024 2:20 PM EDT Clarified with staff at facility. [facility]10-02-2024 Miscellaneous Notes* Telephone Encounter - Adrianne Saldivar LPN - 07/14/2024 2:20 PM EDT Clarified with staff at facility. * Telephone Encounter - Aleksandar Jones MD - 07/14/2024 12:34 PM EDT It should be as written in epic. No hs dose. * Telephone Encounter - Brandy Mark LPN - 07/14/2024 11:17 AM EDT Breanna with with [facility] calling regarding pt's insulin Humalog. They have on orders to be giving the above 4 times per day but it does not mention this to be takenat bedtime. This is not on the prescription in [facility]. Last dose is at dinner. They are questioning if pt needs to be taking this at bedtime and if so what is the sliding scale to go along with this. Please advise Breanna. Brandy Mark LPN documented in this encounterMercy Health [facility]. [facility]10-02-2024 Telephone encounter Note * Telephone Encounter - Aleksandar Jones MD - 07/14/2024 12:34 PM EDT It should be as written in [facility]. No hs dose. [facility]10-02-2024 Telephone encounter Note* Telephone Encounter - Brandy Mark LPN - 07/14/2024 11:17 AM EDT Breanna with with [facility] calling regarding pt's insulin Humalog. They have on orders to be giving the above 4 times per day but it does not mention this to be takenat bedtime. This is not on the prescription in [facility]. Last dose is at dinner. They are questioning if pt needs to be taking this at bedtime and if so what is the sliding scale to go along with this. Please advise Breanna. Brandy Mark LPN [facility]09-27-2024 Telephone encounter Note* Telephone Encounter - [...] Ordonez LPN July 09, 2024 8:[address] [facility]09-27-2024 Miscellaneous Notes* Telephone Encounter - Angi [...] 09, 2024 8:50 AM documented in this encounterMercy Health St. [facility]09-24-2024 Note* Addendum Note - Radha Batista APRN.CNP - 07/06/2024 6:07 PM EDTAddended by: RADHA BATISTA on: 07/06/2024 06:07 PM Modules accepted: Orders [facility]09-24-2024 Miscellaneous Notes* Addendum Note - Radha Batista APRN.CNP - 07/06/2024 6:07 PM EDTAddended by: RADHA BATISTA on: 07/06/2024 06:07 PM Modules accepted: Orders documented in this encounterMercy Health St. [facility]09-24-2024 Instructions* Patient Instructions* Radha Batista APRN.CNP - 07/06/2024 3:21 PM EDT Return for fasting labwork. Recheck in 3 months, sooner if needed. documented in this encounterMercy Health St. [facility]09-24-2024 History of Present illness Narrative* Radha [...] at times. Doesn't like living at the senior care. COPD: Follows with Dr. Ramirez. Stable on inhalers. HTN: No CP. Occ SOB d/t COPD.r Diabetes: Sugars have been improved with adding of the sliding scale. Due for A1C. PAST MEDICAL HISTORY: PAST MEDICAL HISTORY Diagnosis Date Bilateral pneumonia 07/23/2018 Admit [facility]: pneumococcal suspected, neg culture. 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 Fatigue, [...] improvement. Radha Batista APRN.PAVITHRA documented in this encounterMercy Health St. [facility]09-24-2024 NoteAultman [facility]09-05-2024 Telephone encounter Note* Telephone Encounter - [...] mouth daily with breakfast. Shelia Salmon APRN.CNP [facility]09-05-2024 Miscellaneous Notes* Telephone Encounter - Shelia [...] breakfast. Shirley Romero RN documented in this encounterMercy Health St. [facility]09-05-2024 Telephone encounter Note * Telephone Encounter [...] mouth daily with breakfast. Shirley Romero RN [facility]09-04-2024 Telephone encounter Note* Telephone Encounter - Loree Chen RN - 06/16/2024 8:26 AM EDT Pharmacy electronically requests the following refill(s) Requested Prescriptions Pending Prescriptions Disp Refills metoprolol succinate ER (TOPROL XL) 25 mg 24 hr tablet [Pharmacy Med Name: Metoprolol Succinate ER 25MG TB24] 30 tablet Sig: take 1 tablet by mouth every evening Loree Chen RN [facility]09-04-2024 Miscellaneous Notes* Telephone Encounter - Loree Chen RN - 06/16/2024 8:26 AM EDT Pharmacy electronically requests the following refill(s) Requested Prescriptions Pending Prescriptions Disp Refills metoprolol succinate ER (TOPROL XL) 25 mg 24 hr tablet [Pharmacy Med Name: Metoprolol Succinate ER 25MG TB24] 30 tablet Sig: take 1 tablet by mouth every evening Loree Chen RN documented in this encounterMercy Health St. [facility]08-28-2024 Telephone encounter Note * Telephone Encounter [...] Ferrer LPN June 09, 2024 10:[address] [facility]08-28-2024 Miscellaneous Notes* Telephone Encounter - Maye [...] 09, 2024 10:05 AM documented in this encounterMer[facility] St. [facility]08-08-2024 Telephone encounter Note * Telephone Encounter - Cristal White RN - 05/20/2024 8:49 AM EDT Laxmi with [facility] called and is notified of providers message. She voices understanding. Cristal White RN [facility]08-08-2024 Miscellaneous Notes* Telephone Encounter - Cristal White RN - 05/20/2024 8:49 AM EDT Laxmi with [facility] called and is notified of providers message. She voices understanding. Cristal White RN * Telephone Encounter - Aleksandar Jones MD - 05/19/2024 4:57 PM EDT Sent over new script * Telephone Encounter - Branyd Mark LPN - 05/19/2024 2:43 PM EDT Breanna Zheng with [facility] she is with pt and we have [...] member. Brandy Mark LPN documented in this encounterMercy Health St. [facility]08-07-2024 Telephone encounter Note * Telephone Encounter - Aleksandar Jones MD - 05/19/2024 4:57 PM EDT Sent over new script [facility]08-07-2024 Telephone encounter Note* Telephone Encounter - Brandy Mark LPN - 05/19/2024 2:43 PM EDT Breanna Grimes. with [facility] she is with pt and we have [...] Breanna or staff member. Brandy Mark LPN [facility]08-06-2024 Telephone encounter Note* Telephone Encounter - [...] before breakfast. 1/2 hr before meal. Eunice Spivey, RN May 18, 2024 1:[address] [facility]08-06-2024 Miscellaneous Notes* Telephone Encounter - Eunice [...] 18, 2024 1:15 PM documented in this encounterMercy Health St. [facility]07-22-2024 Telephone encounter Note * Telephone Encounter - Alma Smart RN - 05/03/2024 12:02 PM EDT [facility] reports insurance will not cover the metronidazole 1%. The insurance is saying they will cover the preferred, which is metronidazole 0.75% Pended. [facility]07-22-2024 Miscellaneous Notes* Telephone Encounter - Alma Smart RN - 05/03/2024 12:02 PM EDT [facility] reports insurance will not cover the metronidazole 1%. The insurance is saying they will cover the preferred, which is metronidazole 0.75% Pended. documented in this encounterMercy Health St. [facility]07-22-2024 Telephone encounter Note * Telephone Encounter [...] Smart RN May 03, 2024 8:[address] [facility]07-22-2024 Miscellaneous Notes* Telephone Encounter - Alma [...] 03, 2024 8:51 AM documented in this encounterMer[facility] Health St. [facility]07-05-2024 Telephone encounter Note * Telephone Encounter [...] Smart RN April 16, 2024 1:[address] [facility]07-05-2024 Miscellaneous Notes* Telephone Encounter - Alma [...] 16, 2024 1:45 PM documented in this encounterMer[facility] St. [facility]07-05-2024 Telephone encounter Note * Telephone Encounter [...] Spivey RN April 16, 2024 8:[address] [facility]07-05-2024 Miscellaneous Notes* Telephone Encounter - Eunice [...] 16, 2024 8:43 AM documented in this encounterMercy Health St. [facility]07-03-2024 Instructions* Patient Instructions* Radha Batista APRN.PAVITHRA - 04/14/2024 1:45 PM EDT Start the bactroban ointment three times daily for a week. Let us know if no better/worsening. Make sure to discuss fatigue with sleep medicine next week to see if another sleep study is indicated. documented in this encounterMercy Health St. [facility]07-03-2024 History of Present illness Narrative* Radha Batista APRN.STEAM AND GAS TURBINE ASSEMBLER - 04/14/2024 1:04 PM EDT This is [...] HISTORY Diagnosis Date Bilateral pneumonia 07/23/2018 Admit [facility]: pneumococcal suspected, neg culture. 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, pt was on metformin for a [...] agrees with the plan. documented in this encounterMer[facility]. [facility]06-20-2024 History of Present illness Narrative* Long [...] and treatment included: Therapeutic exercise, Neuromuscular re-education, Self-penitentiary management, Gait training, Patient/Family/Caregiver Education, and General [...] 1047 Long Davis PT documented in this encounterMercy Health [facility]. [facility]06-18-2024 History of Present illness Narrative* Long Davis, PT - 03/30/2024 12:19 PM EDT Episode [...] 1215 Long Davis PT documented in this encounterMercy Health St. Anne [facility]06-18-2024 Instructions* Patient Instructions* Radha Batista APRN.CNP - 03/30/2024 9:16 AM EDT Continue the same medication. Get labs. Recheck in 3 months. documented in this encounterMercy Health St. Anne [facility]06-18-2024 History of Present illness Narrative* Radha [...] HISTORY Diagnosis Date Bilateral pneumonia 07/23/2018 Admit [facility]: pneumococcal suspected, neg culture. 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, pt was on metformin for a [...] of 09/19 on [address] per Dr. Rmairez No current facility-administered medications for this visit. [...] as needed for worsening/no improvement. Radha Batista APRN.STEAM AND GAS TURBINE ASSEMBLER documented in this encounterMercy Health St. [facility]06-13-2024 History of Present illness Narrative* Jacquietwin Long, PT - 03/25/2024 11:50 AM EDT Episode [...] 1: SciFit StepOne seat #10 x7 minutes to focus [...] 1146 Session Stop Time : 1218 Jaci Brady STRESS ANALYST Long Davis PT documented in this encounterMercy Health [facility]. [facility]06-11-2024 History of Present illness Narrative* Long [...] 1: SciFit StepOne seat #10 x7 minutes to focus [...] 1127 Long Davis PT documented in this encounterMercy Health St. [facility]06-07-2024 Telephone encounter Note * Telephone Encounter - Frank Joya LPN - 03/19/2024 3:48 PM EDT Ivett @ [facility] notified. Frank Joya LPN [facility]06-07-2024 Miscellaneous Notes* Telephone Encounter - Frank Joya LPN - 03/19/2024 3:48 PM EDT Ivett @ [facility] notified. Frank Joya LPN * Telephone Encounter - Radha Batista APRN.CNP - 03/19/2024 3:29 PM EDT Actually, changed the insulin to just three times daily with meals. Can please let pharmacy know. Radha Batista APRN.PAVITHRA * Telephone Encounter - Anusha Hansen RN - 03/19/2024 3:10 PM EDT Ivett Pollard calls to request updated orders for [...] advise. Anusha Hansen RN documented in this encounterMercy Health St. [facility]06-07-2024 Telephone encounter Note * Telephone Encounter - Delfina Burns LPN - 03/19/2024 3:29 PM EDT Caregiver given below information. [facility]-07-[facility] Telephone encounter Note* Telephone Encounter - Radha Batista APRN.CNP - 03/19/2024 3:29 PM EDT Actually, changed the insulin to just three times daily with meals. Can please let pharmacy know. Radha Batista APRN.PAVITHRA [facility]06-07-2024 Miscellaneous Notes* Telephone Encounter - Delfina Burns LPN - 03/19/2024 3:29 PM EDT Caregiver given below information. * Telephone Encounter - Frank Joya LPN - 03/19/2024 2:31 PM EDT SHWETHA with [facility] to return call to office. [...] time). New orders have been sent to [facility]. Please call us with sugars in 1 week after updating her medication regimen and with status update. Radha Batista APRN.STEAM AND GAS TURBINE ASSEMBLER * Telephone Encounter - Alma Smart RN - 03/18/2024 12:45 PM EDT [facility]- returned call. Given message from PT. [facility] [...] 12:16 PM EDT Left a message with senior care for someone to call and speak with nurse. * Telephone Encounter - Aleksandar Jones MD - 03/18/2024 12:07 PM EDT See below. Can we triage. Likely needs to see one of us * Telephone Encounter - Aleksandar Jones MD - 03/18/2024 12:07 PM EDT ----- Message from Jaci Brady PTA sent at 03/18/2024 11:59 AM EDT ----- Regarding: Patyient Not Feeling Well Hel Brenda Mckeon Lottie showed up for therapy today, but she was not treated due to her stating that she wasn't feeling well. I got her from the lob and walked a short distance with her [...] Thanks, Jaci Brady PTA documented in this encounterMercy Health St. [facility]06-07-2024 Telephone encounter Note * Telephone Encounter - Anusha Hansen RN - 03/19/2024 3:10 PM EDT Ivett with [facility] calls to request updated orders for lancets, [...] for review. Please advise. Anusha Hansen RN [facility]06-07-2024 Telephone encounter Note* Telephone Encounter - Frank Joya LPN - 03/19/2024 2:31 PM EDT LM with [facility] to return call to office. Please notify of the following when she returns call to office. Increase Basaglar to 60units at 4pm. Restart Humalog per sliding scale. Check sugars three times daily and call with readings in 1 week. Frank Joya LPN [facility]06-07-2024 Telephone encounter Note* Telephone Encounter - Radha Batista APRN.CNP - 03/19/2024 2:24 PM EDT Can we please call the assisted living and review new orders with them. (The computer system was down at the time of the office visit and was unable to complete at that time). New orders have been sent to [facility]. Please call us with sugars in 1 week after updating her medication regimen and with status update. Radha Batista APRN.PAVITHRA [facility]06-07-[facility] History of Present illness Narrative* Radha [...] but it never made it to the [facility] where she lives. PAST MEDICAL HISTORY: PAST MEDICAL HISTORY Diagnosis Date Bilateral pneumonia 07/23/2018 Admit [facility]: pneumococcal suspected, neg culture. 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, pt was on metformin for a [...] as needed for worsening/no improvement. Radha Batista APRN.STEAM AND GAS TURBINE ASSEMBLER documented in this encounterMercy Health St. [facility]06-06-2024 Telephone encounter Note * Telephone Encounter - Alma Smart RN - 03/18/2024 12:45 PM EDT [facility]- returned call. Given message from PT. [facility] [...] Radha. Schedule appt for tomorrow with Radha. [facility]06-06-[facility] Telephone encounter Note* Telephone Encounter - Adrianne Saldivar LPN - 03/18/2024 12:16 PM EDT Left a message with senior care for someone to call and speak with nurse. [facility]06-06-[facility] Telephone encounter Note* Telephone Encounter - Aleksandar Jones MD - 03/18/2024 12:07 PM EDT See below. Can we triage. Likely needs to see one of us [facility]-06-[facility] Telephone encounter Note* Telephone Encounter - [...] out to her. Thanks, Jaci Brady PTA [facility]06-06-[facility]24 History of Present illness Narrative* Je Ty, PT - 03/18/2024 11:53 AM EDT Pt arrived to therapy, but was not seen for a treatment today. Pt stated she was not feeling well (felt very weak and achy and had a stomach ache) and had a pale color to her face.Communicated with pt's rn homecare that is was in the best interest of the pt to not complete a treatment today. MELINDA Del Toro PT documented in this encounterMercy Health St. [facility]06-04-2024 History of Present illness Narrative* Long [...] Patient to be seen for Therapeutic exercise (63550), Neuromuscular re-education (24249), Manual therapy (96671), Therapeutic activities (64395), Self-penitentiary management (10715), Gait Training (49898), Patient/Family/Caregiver Education, Body Mechanics Training, General Conditioning, [...] tolerance has increased but is still limited. [facility] reports that pain continues to interfere with [...] 1217 Long Davis PT documented in this encounterMercy Health St. [facility]05-31-2024 Telephone encounter Note * Telephone Encounter - Rolf Herrera DO - 03/12/2024 3:01 PM EDT JoseA lfredo Garza was called last evening by nurse suction plate carrier cleaner regarding your patient who lives at a senior care and is currently on medication for diabetes [...] sugars. All the best Thank you Rolf [facility] Work Phone: 1(181) 514-139005-31-2024 Miscellaneous Notes* Telephone Encounter - Rolf Herrera DO - 03/12/2024 3:01 PM EDT Jose Alfredo Garza was called last evening by nurse suction plate carrier cleaner regarding your patient who lives at a senior care and is currently on medication for diabetes [...] best Thank you Rolf documented in this encounterMercy Health St. [facility]05-24-2024 Telephone encounter Note * Telephone Encounter - Cristal White RN - 03/05/2024 4:15 PM EDT Melony Pts guardian called and is notified of providers results and instructions. She voices understanding. Faxed copy of Pts medication list and lab orders to her at fax # [phone]. Cristal White RN [facility]05-24-2024 Miscellaneous Notes* Telephone Encounter - Cristal White RN - 03/05/2024 4:15 PM EDT Melony Pts guardian called and is notified of providers results and instructions. She voices understanding. Faxed copy of Pts medication list and lab orders to her at fax # [phone]. Cristal White RN * Telephone Encounter - [...] in. Radha Batista APRN.CNP documented in this encounterMercy Health St. [facility]05-24-2024 Telephone encounter Note * Telephone Encounter [...] 2-4 weeks. Orders are in. Radha Batista APRN.STEAM AND GAS TURBINE ASSEMBLER [facility]05-23-2024 History of Present illness Narrative* Long [...] LEVEL OF FUNCTION: TREATMENT: Therapeutic Exercise: 1: Job36Fit StepOne seat #10 x5 minutes (1:1 throughout, [...] : 1144 Session Stop Time : 1224 Jaci MELINDA Brady PT documented in this encounterMercy Health St. [facility]05-21-2024 History of Present illness Narrative* Long [...] 1525 Long Davis PT documented in this encounterMercy Health St. [facility]05-21-2024 Instructions* Patient Instructions* Radha Batista APRN.CNP - 03/02/2024 9:27 AM EDT Stop the celebrex. Start the relafen. Get labs/urine. Recheck in 1 month, sooner if needed. documented in this encounterMercy Health St. [facility]05-21-2024 History of Present illness Narrative* Radha [...] HISTORY Diagnosis Date Bilateral pneumonia 07/23/2018 Admit [facility]: pneumococcal suspected, neg culture. 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, pt was on metformin for a [...] of 09/19 on [address] per Dr. Rmairez Blood-Glucose Meter (FREESTYLE LITE METER) monitoring kit [...] as needed for worsening/no improvement. Radha Batista APRN.STEAM AND GAS TURBINE ASSEMBLER documented in this encounterMercy Health St. [facility]05-16-2024 History of Present illness Narrative* Long Davis, СЕРГЕЙ - 02/26/2024 10:46 AM EDT Episode Visit [...] 1033 Long Davis PT documented in this encounterMercy Health St. [facility]05-14-2024 Telephone encounter Note * Telephone Encounter [...] Please advise. Thank you. Edel East RN. [facility]05-14-2024 Miscellaneous Notes* Telephone Encounter - Edel [...] you. Edel East RN. documented in this encounterMercy Health St. [facility]05-14-2024 History of Present illness Narrative* Long [...] Session Stop Time : 1140 Jaci Brady, STRESS ANALYST Long Davis PT documented in this encounterMercy Health St. [facility]05-09-2024 History of Present illness Narrative* Long [...] Patient to be seen for Therapeutic exercise (04697), Neuromuscular re-education (91989), Manual therapy (93901), Therapeutic activities (20961), Self-penitentiary management (56072), Gait Training (24139), Patient/Family/Caregiver Education, Body Mechanics Training, General Conditioning, [...] Time : 916 Session Stop Time : 100 Long Davis PT * Long Davis PT - 02/19/2024 9:55 AM EDT Program_ID:[id number] Access Code: [email or web address] URL: [email or web address] Date: 02-19-2024 Prepared By: Long Davis Program [...] sets - 10 reps documented in this encounterMercy Health St. [facility]05-07-2024 History of Present illness Narrative* Jaci Brady PTA - 02/17/2024 9:07 AM EDT Program_ID:[id number] Access Code: [email or web address] URL: [email or web address] Date: 02-17-2024 Prepared By: Long Davis Program [...] 2 sets - 10 reps * Long Davis, PT - 02/17/2024 8:48 AM EDT [...] Session Stop Time : 922 Jaci Brady, MELINDA Davis PT documented in this encounterMercy Health St. [facility]05-02-2024 History of Present illness Narrative* Long [...] Time : 929 Session Stop Time : 100 MELINDA Del Toro PT documented in this encounterMercy Health St. [facility]04-30-2024 History of Present illness Narrative* Long [...] Time : 1452 Session Stop Time : 153 Long Davis PT documented in this encounterMercy [facility]. [facility]04-25-2024 History of Present illness Narrative* Long [...] MELINDA Del Toro PT documented in this encounterMercy Health St. [facility]04-24-2024 Telephone encounter Note * Telephone Encounter - Alma Smart, RN - 02/04/2024 4:55 PM EDT Phoned patient and given provider's message below. Patient didn't understand and asked this nurse to give the message to Peg. Reports Peg works there. Gave message to Peg with verbalized understanding. [facility]04-24-2024 Miscellaneous Notes* Telephone Encounter - Alma [...] Please choose alternative below and send -Basaglar Michelpen -Tresiba -Tresiba flextouch Tonie Escobar MA documented in this encounterMercy Health St. [facility]04-24-2024 Telephone encounter Note * Telephone Encounter - Aleksandar Jones MD - 02/04/2024 4:27 PM EDT Rx sent. Let her know had to change it [facility]04-24-2024 Telephone encounter Note* Telephone Encounter - Tonie Escobar MA - 02/04/2024 2:52 PM EDT Insurance faxed letter stating Gino Gomezar no longer covered . Please choose alternative below and send -Basaglar Kwikpen -Tresiba -Tresiba flextouch Tonie Escobar MA [facility]04-23-2024 History of Present illness Narrative* Long Davis, PT - 02/03/2024 9:35 PM EDT Episode [...] kyphosis, Rounded shoulders TREATMENT: Therapeutic Exercise: 1: WindPipe StepOne seat #10 x6 minutes (Plan of [...] Davis PT - 02/03/2024 3:11 PM EDT Program_ID:[id number] Access Code: [email or web address] URL: [email or web address] Date: 02-03-2024 Prepared By: Long Davis Program [...] sets - 10 reps documented in this encounterMercy Health St. [facility]04-18-2024 Miscellaneous Notes* Telephone Encounter - Alma Smart RN - 01/29/2024 2:48 PM EDT Patient has been identified by name and date of : Yes, Provider Caroleen Date 01-29-24 Time 2:49 pm Pharmacy phones for refill(s): Requested Prescriptions Pending Prescriptions Disp Refills potassium chloride ER (KLOR-CON) 20 mEq tablet 30 tablet 5 Sig: Take 1 tablet by mouth once daily. Date of last office visit in primary care: 01/13/2024 Date of next office visit in primary care: 05/04/2024 Please advise. Thank you. Alma Smart RN. documented in this encounterMercy Health St. [facility]04-10-2024 History of Present illness Narrative* Long Davis, PT - 01/21/2024 3:39 PM EDT [...] Planned: 12 Planned Treatment Interventions: Therapeutic exercise (97704), Neuromuscular re- education (47134), Manual therapy (75620), Therapeutic activities (63621), Self- penitentiary management (46441), Gait Training (03162), Patient/Family/Caregiver Education, Body Mechanics Training, General Conditioning, [...] Home Environment Patient Lives With: Facility Care (shelter with 5 other ladies that "stress me [...] Davis PT - 01/21/2024 11:21 AM EDT Program_ID:[id number] Access Code: [email or web address] URL: [email or web address] Date: 01-21-2024 Prepared By: Long Davis Program Notes Exercises - Hooklying Single Knee to Chest Stretch - 3 x daily - 7 x weekly - sets - 3 reps - Supine Double Knee to Chest Modified - 1 x daily - 7 x weekly - sets - 3 reps documented in this encounterMercy Health St. [facility]04-02-2024 Instructions* Patient Instructions* Radha Batista APRN.STEAM AND GAS TURBINE ASSEMBLER - 01/13/2024 9:45 AM EDT Start the saline spray to the nose twice daily. Stop the meloxicam. Start the celebrex (celecoxib) once daily (for leg pain). Start the docusate twice daily (for constipation). Schedule w/ physical therapy to help with the legs. documented in this encounterMercy Health St. [facility]04-02-2024 History of Present illness Narrative* Radha Batista APRN.PAVITHRA - 01/13/2024 9:18 AM EDT This is [...] HISTORY Diagnosis Date Bilateral pneumonia 07/23/2018 Admit [facility]: pneumococcal suspected, neg culture. 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, pt was on metformin for a [...] vaginally daily at bedtime. For 7 nights. Bbbwa-5-QQN-EPA-Fish Oil (FISH OIL) 300-1,000 mg cap Take [...] Once per day. Lancing Device with Lancets (abaXX Technology DELPocket Change PLUS LANC DEV) Check blood sugars twice [...] as needed for worsening/no improvement. Radha Batista APRN.STEAM AND GAS TURBINE ASSEMBLER documented in this encounterMercy Health St. [facility]03-02-2024 Discharge summary Author Jey Quesada [facility] December 13, 2023 11:08pm Note Date/Time December 13, 2023 6:24 pm [facility] Medical Records Department [address] [place] [id number] Emergency Department Summary 12/13/23 MR#: [id number] Acct: [id number] Name: BRENDA LE Rep #:[id number] : 1965 58 From: Jey Quesada DO [...] include cholecystectomy. No history of bowel obstruction. [facility] Medical History Anxiety and depression COPD [...] mandibular surgery Social History housing: other details: shelter. Smoking Status: Former smoker how long ago [...] 83.5 H Lymph % (Auto) 8.5 L Garland % (Auto) 7.2 Eos % (Auto) 0.3 [...] Clarity Clear Urine pH 6.0 Ur Specific [place] 1.010 Urine Protein Negative Urine Glucose (UA) [...] your Primary Care Provider. Call [facility] ([phone]) or report to the closest Emergency Room. Call 911 if necessary. 12/13/23 2308 <Electronically signed by Jey Quesada DO> Cosigner Signature (if applicable): CC: Dr. Aleksandar Jones MD ~ Signed [facility] Work Phone: 1(641) 886-621202-20-2024 Miscellaneous Notes* Telephone Encounter - Shanell Estes [...] you. Shanell Estes LPN. documented in this encounterMercy Health St. [facility]02-08-2024 Miscellaneous Notes* Telephone Encounter - Edel Katz LPN - 11/20/2023 8:47 AM EST Patient notified of results, verbalizes understanding of instructions. Edel Katz LPN * Telephone Encounter - Meredith Moore APRN.STEAM AND GAS TURBINE ASSEMBLER - 11/20/2023 7:23 AM EST Can you please call the patient and let her know I reviewed her lab results. Additional labs were normal, calcium is at normal levels. No further testing needed at this time. Please let me know if she has any questions. Thank you. Meredith Moore APRN.PAVITHRA documented in this encounterMercy Health St. [facility]12-11-2023 History of Present illness Narrative* Fuentes Renee MD - 09/22/2023 3:56 PM EST Images from the original note were not included. Fuentes Renee MD Interventional Cardiology [address] [address] Chief Complaint Patient presents with: Established Patient [...] HISTORY Diagnosis Date Bilateral pneumonia 07/23/2018 Admit [facility]: pneumococcal suspected, neg culture. + rhinovirus [...] Comment: marinarcisoan- Teen yrs, but not now ALLERGIES No [...] bedtime. For 7 nights. 7 Suppository 0 Vrlqe-4-UIH-EPA-Fish Oil (FISH OIL) 300-1,000 mg cap Take [...] 1 capsule by mouth once daily. 30 [id number] guaiFENesin (MUCINEX) 600 mg 12 hr tablet [...] bedtime. 10mL 5 Lancing Device with Lancets (Talent[employer] PLUS LANC DEV) Check blood sugars twice [...] to correct any errors. documented in this encounterMercy Health St. [facility]11-29-2023 Miscellaneous Notes* Telephone Encounter - Joselyn [...] call stating she is reporting BS readings: 13: fast: 197, 3 p: 230, 8 p: 203 11-14: f: 102, 3 p: 164, 8 p: 184 -15: f: 115, 11 a: 114, 3p: 153, 8 p: 245 11-16: f: 140, 11 a: 128, 3 p: 153, 8 p: 245 1117: f: 166, 11 a: 138, 3 p: 115, 8 p: 219 11-18: f: 146, 3 p: 116, 8 p: 155 11-19: f: 140, 122, 8 p: 209 1120: [...] 09/09/2023 2:35 PM EST TC to patients outsole caser, Leola, to question frequency of BG readings. Leola states that Brenda recently had COPD exacerbation and was given prednisone. She believed that's why BG was high, she has been taking regular dose of insulin plus sliding scale. Leola reports patients BG is back to her normal readings. Leola unable to verify frequency of BG monitoring and states Fransisca from [facility] these and to contact her at [phone] after 4 PM for additional information. CHRIS Antunez * Telephone Encounter - Aleksandar Jones MD - 09/09/2023 1:46 PM EST Can we verify with senior care. I have her being testing two times a day * Telephone Encounter - Saluda Yany Zuniga - 09/09/2023 1:32 PM EST Brenda is calling Aleksandar Jones MD today [facility]ie Regional [facility] due to she needs our office to call and confirm the diabetic information for the patient. [facility] told her they are testing the patient 5 times per day. They will need new prescriptions for test stripsand lancets. Please call back. Patient has been identified by name and birthdate. Closing statement: Results or non-symptom based questions: Thank you for calling [facility], your call will be returned within the next business day. Yany Zuniga documented in this encounterMercy Health St. [facility]11-29-2023 Miscellaneous Notes* Telephone Encounter - Quattrocchi, Maye FOOTWEAR SALES LEADER - 09/10/2023 9:16 AM EST Patient has [...] Value 04/29/2023 114 03/12/2019 Test sent to [facility]. Non HDL Cholesterol (mg/dL) Date Value 08/21/2022 118 07/26/2020 132 Blood Pressure: BUN (mg/dL) Date Value 04/29/2023 14 07/19/2021 8 Sodium (mmol/L) Date Value 04/29/2023 135 07/19/2021 133 Last 1 Encounter BP Readings: Date: BP: 08/29/2023 118/72 Please advise. Thank you. Maye Ferrer LPN. documented in this encounterMercy Health St. [facility]11-20-2023 Miscellaneous Notes* Telephone Encounter - Jade [...] Rogers RN - 09/01/2023 11:06 AM EST [facility] called. Asking if they could replace the Monistat cream to Miconazole 200 mg suppository to meet the needs of the patient. It comes as a 3 day pack. Edilia Rogers RN * Telephone Encounter - Joselyn Haji RN - 09/01/2023 10:53 AM EST area field worker notified of information below. Joselyn Haji RN * Telephone Encounter - Alma Ac APRN.CNP - 09/01/2023 10:27 AM EST There is an interaction with the Diflucan and another medication she is on, that's why I didn't order it. Alma Ac APRN.CNP * Telephone Encounter - Joselyn Haji RN - 09/01/2023 9:28 AM EST Patients fruit raiser called and notified of results and instructions. Leola states the senior care where Brenda lives is not licensed to administer the medication and areonly able to give verbal prompts. Because patient is very cognitively limited is she able to get oral Diflucan instead of vaginal cream? Will need to call Leola patients fruit raiser back. Joselyn Haji RN * Telephone Encounter [...] in. Alma Ac APRN.CNP documented in this encounterMercy Health St. [facility]11-17-2023 History of Present illness Narrative* Alma [...] external genitalia normal, normal Bartholin's glands, urethra, [place]'s glands, no vulvar lesions, no cervical lesions, [...] 1 %-0.05 % TOPICAL CREAM Alma Ac APRN.STEAM AND GAS TURBINE ASSEMBLER Senior Media Planner offered: Patient declines. Medical Decision Making: Problems: Low: Acute, uncomplicated illness or injury Data: Unique test(s) ordered: 2 Risk: Low: Low risk from testing/treatment Moderate: Drug management Medical Decision Making Level: 3 - Low documented in this encounterMercy Health St. [facility]11-16-2023 Miscellaneous Notes* Telephone Encounter - Alma Smart RN - 08/28/2023 8:35 AM EST Patient has been identified by name and date of : Yes, Provider Caroleen Date 08-28-23 Time 8:36 am Pharmacy phones [...] you. Alma Smart RN. documented in this encounterMercy Health St. [facility]11-09-2023 Miscellaneous Notes* Telephone Encounter - Alma [...] option? If so, please send rx to [facility]. Thank you, Shanell Estes LPN * Telephone [...] option. Brandy Mark LPN documented in this encounterMercy Health St. [facility]11-07-2023 Miscellaneous Notes* Telephone Encounter - Cristal White RN - 08/19/2023 5:55 PM EST Fransisca Pandya Resident Staff at the [facility] called and is notified of providers results [...] EST Fransisca Pandya Resident Staff at the [facility] the [facility] she reports Pt was in the hospital [...] Please call and advise. documented in this encounterMercy Health St. Anne [facility]11-04-2023 Discharge summary Author Hesham Noguera [facility] August 16, 2023 10:28am Note Date/Time August 16, 2023 1 0:14am [facility] Medical Records Department [address] [place] [address] Discharge Summary 08/16/23 1011 MR#: [id number] Acct: [id number] Name: BRENDA LE Shawanda Rep #:[id number] : 1965 57 From: Hesham Noguera MD PCP: Dr. Aleksandar Jones MD Status:ADM I N Location: [place] [address] Providers Date of Admission: 08/14/23 Date of [...] (Auto) 81.8 H, Lymph % (Auto) 12.7 L,Garland % (Auto) 4.6, Eos % (Auto) 0.0, [...] Self Care Charges/Coding Visit Charges Inpatient E&M: 89010 Disch Hosp >30min 08/16/23 1028 <Electronically signed by Hesham Noguera MD> Cosigner Signature (if applicable): CC: Dr. Hesham Noguera MD; Dr. Aleksandar Jones MD~ Signed [facility] Work Phone: 1(178) 341-233111-04-2023 Progress note Author Hesham Noguera [facility] August 16, 2023 10:11am Note Date/Time August 16, 2023 7 :08am [facility] Medical Records Department [address] [place] [address] Progress Note - Hospitalist 08/16/23 0708 MR#: [id number] Acct: [id number] Name: BRENDA LE Rep #:[id number] : 1965 57 From: Hesham Noguera MD PCP: Dr. Aleksandar Jones MD Status:ADM I N Location: [place] [address] Reason for Visit Reason for Visit: Diagnoses [...] (Auto) 86.8 H, Lymph % (Auto) 11.1 L,Garland % (Auto) 1.6, Eos % (Auto) 0.0, [...] documentation, 40minutes Charges/Coding Visit Charges Inpatient E&M: 55727 Subs Hosp L2 08/16/23 1011 <Electronically signed by Hesham Noguera MD> Cosigner Signature (if applicable): CC: ~ Signed [facility] Work Phone: 1(365) 694-690711-03-2023 Progress note Author Hesham Noguera [facility] August 15, 2023 9:29am Note Date/Time August 15, 2023 7 :27am [facility] Medical Records Department [address] [place] [address] Progress Note - Hospitalist 08/15/23726 MR#: [id number] Acct: [id number] Name: BRENDA LE Rep #:[id number] : 1965 57 From: Hesham Noguera MD PCP: Dr. Aleksandar Jones MD Status:ADM I N Location: [place] [address] Reason for Visit Reason for Visit: Diagnoses [...] (Auto) 79.4 H, Lymph % (Auto) 12.3 L,Garland % (Auto) 7.5, Eos % (Auto) 0.0, [...] documentation, 40minutes Charges/Coding Visit Charges Inpatient E&M: 36863 Subs Hosp L2 08/15/23928 <Electronically signed by Hesham Noguera MD> Cosigner Signature (if applicable): CC: ~ Signed [facility] Work Phone: 1(117) 456-658811-03-2023 Progress note Author [facility] August 15, 2023 6:28am Note Date/Time August 15, 2023 6 :28am [facility] Medical Records Department [address] [place] [address] Progress Note - Hospitalist 08/15/23627 MR#: [id number] Acct: [id number] Name: BRENDA LE Rep #:[id number] : 1965 57 From: Amy Moreno MD PCP: Dr. Aleksandar Jones MD Status:ADM I N Location: [place] [address] Hospitalist Note Resp panel with + rhino. 08/15/23627 <Electronically signed by Amy Moreno MD> Cosigner Signature (if applicable): CC: ~ Signed [facility] Work Phone: 1(497) 130-940611-03-2023 Discharge summary Author Jey Quesada [facility] August 14, 2023 10:27pm Note Date/Time August 14, 2023 6 :16pm [facility] Medical Records Department [address] [facility] [place] [address] Emergency Department Summary 08/14/23 MR#: [id number] Acct: [id number] Name: BRENDA LE Rep #:[id number] : 1965 57 From: Jey Quesada DO PCP: Dr. Aleksandar Jones MD Status:ADM I N Location: [place] [address] HPI History of Present Illness Chief Complaint: Shortness of Breath Narrative Narrative: 57-year-old female presenting with shortness of breath. She states has been having fever, chills, body aches, nasal congestion for a couple of days. She states she lives at the senior care. She is been given ibuprofen. She requestedFlonase but was not given this. Patient states her Tmax was 102. She denies chest pain but is having shortness of breath. Has a history of COPD. [facility] Medical History (Updated 08/14/23 @ 22:16 [...] Dr. Amy Moreno MD) housing: other details: shelter. Smoking Status: Former smoker how long ago [...] he was tested for COVID at her senior care and was negative. Differential includes COVID-19, influenza, [...] 79.4 H Lymph % (Auto) 12.3 L Garland % (Auto) 7.5 Eos % (Auto) 0.0 [...] your Primary Care Provider. Call [facility] ([phone]) or report to the closest Emergency Room. Call 911 if necessary. 08/14/232226 <Electronically signed by Jey Quesada DO> Cosigner Signature (if applicable): CC: Dr. Aleksandar Jones MD ~ Signed [facility] Work Phone: 1(786) 717-617811-03-2023 History and physical note Author Amy Moreno [facility] August 14, 2023 10:20pm Note Date/Time August 14, 2023 1 0:20pm [facility] Medical Records Department [address] [place] [address] H&P Exam - Hospitalist 08/14/232207 MR#: [id number] Acct: [id number] Name: BRENDA LE Rep #:[id number] : 1965 57 From: Amy Moreno MD [...] Tobacco use, Obesity who presents to the [facility] ED on 08/14/23with history of 3 to 4 days of upper respiratory type symptoms including nasal congestion, rhinorrhea in addition to fever, chills, body aches as well as not markedly productive cough with wheezing not improving with worsening dyspnea sensation prompting eventual senior care transition to the ED for evaluation. Patient notes Tmax at her senior care 102. She is unsure if there have been other sick contacts at the senior care. Work-up in the ED included 97.4, heart [...] as patient complaining of significant nasal congestion. [facility] Medical History (Updated 08/14/23 @ 22:16 by [...] Dr. Amy Moreno MD) housing: other details: shelter. Smoking Status: Former smoker how long ago [...] (Auto) 79.4 H, Lymph % (Auto) 12.3 L,Garland % (Auto) 7.5, Eos % (Auto) 0.0, [...] Tobacco use, Obesity who presents to the [facility] ED on 08/14/23with history of 3 to 4 days of upper respiratory type symptoms including nasal congestion, rhinorrhea in addition to fever, chills, body aches as well as not markedly productive cough with wheezing not improving with worsening dyspnea sensation prompting eventual senior care transition to the ED for evaluation. #1. [...] Full code. Charges/Coding Visit Charges Inpatient E&M: 72616 Init Hosp L3 08/14/232219 <Electronically signed by Amy Moreno MD> Cosigner Signature (if applicable): CC: Dr. Amy Moreno MD; Dr. Aleksandar Jones MD~ Signed [facility] Work Phone: 1(192) 553-475411-02-2023 Discharge summary Author Jey Quesada [facility] August 14, 2023 10:27pm Note Date/Time August 14, 2023 6 :16pm [facility] Medical Records Department [address] [place] [address] Emergency Department Summary 08/14/23 MR#: [id number] Acct: [id number] Name: BRENDA LE Rep #:[id number] : 1965 57 From: Jey Quesada DO PCP: Dr. Aleksandar Jones MD Status:ADM I N Location: [address] History of Present Illness Chief Complaint: Shortness of Breath Narrative Narrative: 57-year-old female presenting with shortness of breath. She states has been having fever, chills, body aches, nasal congestion for a couple of days. She states she lives at the senior care. She is been given ibuprofen. She requestedFlonase but was not given this. Patient states her Tmax was 102. She denies chest pain but is having shortness of breath. Has a history of COPD. [facility] Medical History (Updated 08/14/23 @ 22:16 [...] Dr. Amy Moreno MD) housing: other details: shelter. Smoking Status: Former smoker how long ago [...] he was tested for COVID at her senior care and was negative. Differential includes COVID-19, influenza, [...] 79.4 H Lymph % (Auto) 12.3 L Garland % (Auto) 7.5 Eos % (Auto) 0.0 [...] your Primary Care Provider. Call [facility] ([phone]) or report to the closest Emergency Room. Call 911 if necessary. 08/14/232226 <Electronically signed by Jey Quesada DO> Cosigner Signature (if applicable): CC: Dr. Aleksandar Jones MD ~ Signed [facility] Work Phone: 1([phone]) 456-432610-31-2023 Miscellaneous Notes* Telephone Encounter - Anusha Hansen, RN - 08/12/2023 10:57 AM EDT Patient [...] you. Anusha Hansen RN. documented in this encounterMercy Health St. [facility]10-04-2023 Miscellaneous Notes* Telephone Encounter - Loree Chen RN - 07/16/2023 8:25 AM EDT Pharmacy electronically requests the following refill(s) Requested Prescriptions Pending Prescriptions Disp Refills metoprolol succinate ER (TOPROL XL) 25 mg 24 hr tablet [Pharmacy Med Name: Metoprolol Succinate ER 25MG TB24] 90 tablet 3 Sig: take 1 tablet by mouth every evening Loree Chen, RN documented in this [facility]09-06-2023 Miscellaneous Notes* Telephone Encounter - Eunice Spivey RN - 06/18/2023 8:56 AM EDT Last Office Visit: 04/29/2023 Future Office Visit: 10/31/2022 Requested Prescriptions Pending Prescriptions Disp Refills omeprazole (PRILOSEC) 20 mg capsule 30 capsule 5 Sig: Take 1 capsule by mouth daily before breakfast. 1/2 hr before meal. Date of Last Labs: 04/29/2023 documented in this [facility]08-15-2023 Miscellaneous Notes* Telephone Encounter - Shanell Estes LPN - 05/27/2023 10:16 AM EDT [employer] phones requesting refills as follows: Requested Prescriptions Pending Prescriptions Disp Refills pramipexole (MIRAPEX) 0.5 mg tablet 30 tablet 5 Sig: Take 0.5 tablets by mouth daily at bedtime. DEBBY: 04/29/23 NOV: 10/31/23 Shanell Estes LPN documented in this [facility]08-14-2023 Miscellaneous Notes* Telephone Encounter - Nissa Ybarra OCCA - 05/26/2023 2:20 PM EDT TC to both patient and guardian who both verbalized understanding of providers message with no questions at this time. CHRIS Antunez * Telephone Encounter - Nissa Ybarra OCCA - 05/26/2023 2:18 PM EDT ----- Message from Radha Batista APRN.STEAM AND GAS TURBINE ASSEMBLER sent at 05/26/2023 2:00 PM EDT ----- Can please let patient/caregiver know that her stress testing was negative/normal. Radha Batista APRN.STEAM AND GAS TURBINE ASSEMBLER documented in this encounterMercy Health St. [facility]08-14-2023 History of Present illness Narrative* Loree [...] Loree Chen RN Reversal agent used:None LOT [id number] EXP 06/13/26 IV SITE: IV palced by nuclear tecnologist POST EXAM PIV STATUS: Discontinued by Pick Up Attendant PATIENT DISCHARGED TO: Nuclear Medicine Department for post stress imaging A Diagnostic radioactive procedure has taken place, with no further precautions necessary other than routine body substance precautions. More information regarding radiation safety can be found usingthis link: [email or web address]%20Nuclear%20Medicine%20Procedures.[email or web address] SIGNATURE: Loree Chen RN PATIENT NAME:Brenda Le DATE: 05/26/23 TIME: 12:20 PM documented in this encounterMercy Health St. [facility]08-14-2023 History of Present illness Narrative* Sarina Lee RT(R) - 05/26/2023 7:00 AM EDT RADIOLOGY [...] Discontinued PROCEDURE TYPE: NM Stress: 11.8 mCi [id number] was administered IV for Rest Imaging at 07:20 by Sarina Lee. 31.3 mCi [id number] was administered IV for Stress Imaging at 08:31 by Sarina Lee. ADMINISTRATION TIME: PATIENT DISCHARGED TO: Ambulatory patient, left NM department area. A Diagnostic radioactive procedure has taken place, with no further precautions necessary other than routine body substance precautions. More information regarding radiation safety can be found usingthis link: [email or web address]%20Nuclear%20Medicine%20Procedures.pdf SIGNATURE: RT Lemuel(R) PATIENT NAME: Brenda Le DATE: May 26, 2023 TIME: 09:40 AM PAGER/CONTACT #: documented in this encounterMercy Health St. [facility]08-11-2023 Miscellaneous Notes* Telephone Encounter - Alma Smart RN - 05/23/2023 4:09 PM EDT [facility] asking pcp to send order for a generic lancet for patient. Reports patient unable touse the one touch lancets with the system she is using now. Pended. Last appt in pcp office: 12-20-22 Next appt: 10-31-23 [address]. Anne [facility]07-27-2023 Miscellaneous Notes* Telephone Encounter - Nisha Oneill Ma - 05/08/2023 9:48 AM EDT Patient was made aware of the results. Patient verbalizes understanding. Nisha Oneill Ma * Telephone Encounter - Nisha Oneill Ma - 05/08/2023 8:53 AM EDT ----- Message from Radha Batista APRN.CNP sent at 05/07/2023 5:32 PM EDT ----- Can please let patient/outsole caser know that her blood count was improved and stable. Radha Batista APRN.CNP documented in this encounterMercy Health St. [facility]07-18-2023 Instructions* Patient Instructions* Radha Batista APRN.CNP - 04/29/2023 3:22 PM EDT Get the labwork. Get the stool sample for hidden blood. Schedule the stress testing. We'll let you know when I receive the lab results back. documented in this encounterMercy Health St. Anne [facility]07-18-2023 History of Present illness Narrative* Radha Batista APRN.CNP - 04/29/2023 2:37 PM EDT This is a 57 year old female who presents today with: Patient presents with: 6 Month Exam HISTORY OF PRESENT ILLNESS: Brenda Le is a 57 year old female. Patient presents with: 6 Month Exam Presents today w/ social media campaign manager. Pt presents today for follow-up. Refers that [...] w/ PPI. Mood: Presents with social media campaign manager. Refers that there has been some medication adjustments by psychiatry. Refers patient refers that she has been hearing more voices. Concern because this could impact her living situation. She has been having some problems with fatigue. furnace worker disclosed that patient is afraid that [...] HISTORY Diagnosis Date Bilateral pneumonia 07/23/2018 Admit [facility]: pneumococcal suspected, neg culture. + rhinovirus [...] daily at bedtime. Lancing Device with Lancets ([employer] DELICA PLUS LANC DEV) Check blood sugars [...] once daily. Per Dr. James Izquierdo Stocking,Knee,Regular,Med [facility] [place] to be measured for correct size. [...] MG/5 ML INTRAVENOUS SYRINGE - INSERT IV (DE,[place]) - IV DISCONTINUE Will also forward note to pt's senior dentist for review. 2. Weight loss - ICD9: [...] which included preparing to see the patient, [id number] patient care, completing clinical documentation, obtaining and/or reviewing separately obtained history, performing a medically appropriate examination, counseling and educating the pat ient/family/caregiver, and ordering medications, tests, or procedures. documented in this encounterMercy Health St. [facility]05-17-2023 Miscellaneous Notes* Telephone Encounter - Shanell Estes LPN - 02/26/2023 9:06 AM EDT [employer] phones requesting refills as follows: Requested Prescriptions Pending Prescriptions Disp Refills potassium chloride ER (KLOR-CON) 20 mEq tablet 30 tablet 5 Sig: Take 1 tablet by mouth once daily. DEBBY: 12/20/22 (VV) NOV: 03/12/23 Last Refill: 09/11/22 #30 5 refills Shanell Estes LPN documented in this encounterMercy Health St. [facility]05-05-2023 Miscellaneous Notes* Telephone Encounter - Maye [...] you. Maye Ferrer LPN documented in this encounterMercy Health St. [facility]04-20-2023 Miscellaneous Notes* Telephone Encounter - Anusha [...] you. Anusha Hansen RN documented in this encounterMercy Health St. [facility]02-27-2023 Miscellaneous Notes* Telephone Encounter - Alma [...] you. Alma Smart RN documented in this encounterMercy Health St. [facility] Hospital12-27-2022 Miscellaneous Notes* Telephone Encounter - Eunice Spivey RN - 10/08/2022 8:29 AM EST Last Office Visit: 08/28/2022 Future Office Visit: 03/12/2023 Requested Prescriptions Pending Prescriptions Disp Refills insulin needles, DISPOSABLE, (PEN NEEDLE) 31 gauge x 5/16" 100 Each 11 Sig: Use one needle per dose. Once per day. Date of Last Labs: 08/21/2022 documented in [address] encounterMercy Health [address]. [facility]12-23-2022 Miscellaneous Notes* Telephone Encounter - Shanell [...] and advise. Shanell Zuniga documented in this encounterMercy Health St. Anne Hospital11-30-2022 Miscellaneous Notes* Telephone Encounter - Shanell Estes LPN - 09/11/2022 2:26 PM EST [facility] calling for refills DEBBY: 08/28/22 NOV: 03/12/23 Last Refill: [facility] 10/09/21 #30 11 refills Vit D3 10/09/21 #30 11 refills Potassium chl: 03/27/22 #30 5 refills Shanell Estes LPN documented in this encounterMercy Health St. [facility]11-18-2022 Miscellaneous Notes* Telephone Encounter - Maye [...] you. Maye Ferrer LPN documented in this encounterMercy Health St. [facility]11-16-2022 Instructions* Patient Instructions* Radha Batista APRN.CNP - 08/28/2022 2:39 PM EST Continue same medications. Try holding milk products for a week and see if that helps. Try the eye gel at night. Start the metronidazole cream. You can try the tylenol/ibuprofen as needed for back pain. Also can try some heat and massage. Labs and recheck in 6 months. documented in this encounterMercy Health St. [facility]11-16-2022 History of Present illness Narrative* Radha Batista APRN.CNP - 08/28/2022 1:57 PM EST This is [...] HISTORY Diagnosis Date Bilateral pneumonia 07/23/2018 Admit [facility]: pneumococcal suspected, neg culture. + rhinovirus [...] 500mg at bedtime Lancing Device with Lancets (ONETOUCH DELICA PLUS LANC DEV) Check blood sugars [...] once daily. Per Dr. Ramirez Comp Stocking,Knee,Regular,Med [facility] [place] Patient to be measured for correct size. [...] improvement. Radha Batista APRN.PAVITHRA documented in this encounterMercy Health St. [facility]11-07-2022 Miscellaneous Notes* Telephone Encounter - Brandy Mark LPN - 08/19/2022 4:17 PM EST Patient has been identified by name and date of : Yes Pharmacy phones for refill(s): Requested Prescriptions Pending Prescriptions Disp Refills Lancing Device with Lancets (Last.fmTOUCH DELICA PLUS LANC DEV) 100 Each 5 [...] you. Brandy Mark LPN documented in this encounterMercy Health St. [facility]11-03-2022 Miscellaneous Notes* Telephone Encounter - Keila [...] advise. Keila Ca Pss documented in this encounterMercy Health St. [facility]11-01-2022 Miscellaneous Notes* Telephone Encounter - Zaira Humphreys LPN - 08/13/2022 10:00 AM EDT Patient's request for medication is as follows: Requested Prescriptions Pending Prescriptions Disp Refills metoprolol succinate ER (TOPROL XL) 25 mg 24 hr tablet [Pharmacy Med Name: Metoprolol Succinate ER 25MG TB24] 90 tablet 3 Sig: TAKE 1 TABLET BY MOUTH EVERY EVENING Last seen 06/03/2022 in [place]. Follow up scheduled for 06/02/2023. Prescription(s) as above. Please process accordingly. Zaira Humphreys LPN documented in this encounterMercy Health St. [facility]10-27-2022 Instructions* Patient Instructions* Zaira Mancilla APRN.STEAM AND GAS TURBINE ASSEMBLER - 08/08/2022 1:55 PM EDT [facility] [address] [place], [place] [address] Emergency Department Diagnosis: Assessment CELLULITIS: Your exam [...] you are not current with your inmunizations.CONJUNCTIVITIS ([facility]) BASIC INFORMATION DESCRIPTION: An inflammation of [...] virus or allergy. At this point, an barrel raiser may need to culture the cause or [...] increase -Vision is affected. documented in this encounterMercy Health St. Anne Hospital10-27-2022 History of Present illness Narrative* Zaira [...] to 4 months. Patient resides in a senior care, ROS and HPI limited related to cognitive. Information supplemented by geoscientist of senior care. The history is provided by the patient and a caregiver. The history is limited by a developmental delay. No grommet man was used. Eye Problem This is a [...] HISTORY Diagnosis Date Bilateral pneumonia 07/23/2018 Admit [facility]: pneumococcal suspected, neg culture. + rhinovirus [...] MOVEMENT AFTER 3 Lancing Device with Lancets (Last.fmTOUCH DELICA PLUS LANC DEV) Check blood sugars [...] once daily. Per Dr. James Izquierdo Stocking,Knee,Regular,Med [facility] [place] to be measured for correct size. [...] Comment: jeremy- Teen yrs, but not now Review of [...] for recheck in two days Zaira Mancilla APRN.PAVITHRA documented in this encounterMercy Health St. [facility] Hospital09-23-2022 Instructions* Patient Instructions* Zaira Mancilla APRN.CNP - 07/05/2022 1:15 PM EDT Keep the area free of further injury Topical antibiotic ointment Follow up with podiatry to have toenails clipped. documented in this encounterMercy Health St. Anne Hospital09-23-2022 History of Present illness Narrative* Zaira Mancilla APRN.CNP - 07/05/2022 1:06 PM EDT Images from the original note were not included. This note was created using Async Technologiesriter. Subjective Brenda Le is a 56 [...] Presents today with an aid from her senior care " concerns for it being infected" Denies pain. Denies numbness or tingling Sees Dr. Salmon for podiatry at [facility], senior care tried to call today, but they are closed. The history is provided by the patient. No grommet man was used. Pain (foot) Pain location: right [...] HISTORY Diagnosis Date Bilateral pneumonia 07/23/2018 Admit [facility]: pneumococcal suspected, neg culture. + rhinovirus [...] mouth once daily. Lancing Device with Lancets ([employer] DELICA PLUS LANC DEV) Check blood sugars [...] [place]. Zaira Mancilla APRN.PAVITHRA documented in this encounterMercy Health St. [facility]09-08-2022 Miscellaneous Notes* Telephone Encounter - Cristal [...] 07/19/2021 19 Please advise. Thank you. Cristal White, RN documented in this encounterMercy Health St. [facility]07-27-2022 Miscellaneous Notes* Telephone Encounter - Alma Smart RN - 05/08/2022 9:45 AM EDT [facility] reports the hospital in [place] only prescribed a month supply of the pended medications. Reports when the hospital sent Rx's for the month supply, it cancelled out pcp's Rx's. Will need new Rx's. Note: miralax was changed to packets and instructions state daily. Ferrous gluconate was changed toFerrous sulfate. [facility] asking to please send omar, so patient will have to take tomorrow. documented in this encounterMercy [facility]07-26[facility]2022 Miscellaneous Notes* Telephone Encounter - Frank Joya LPN - 05/07/2022 2:30 PM EDT [facility] notified. Frank Joya LPN * Telephone Encounter - Aleksandar Jones MD - 05/07/2022 1:43 PM EDT Continue meds. * Telephone Encounter - Chiara Suárez LPN - 05/07/2022 1:33 PM EDT Patient was released 04/16/2022 from [facility], Dr. Kessler called in RX Metformin 500mg, 2tablets BID & Ferrous Sulfate 325mg, 1 tablet once daily. [facility] is asking if Dr. Jones wants Patient to continue taking Metformin & Ferrous Sulfate. Please advise. Chiara Suárez LPN documented in this encounterMer[facility]07[facility]22 Miscellaneous Notes* Telephone Encounter - Adrianne Saldivar LPN - 05/02/2022 9:46 AM EDT Called pharmacy and had tech check profile. They do have refill on metformin and iron. Confirmed with her these were not new orders. * Telephone Encounter - Kelsy Herrera Pss - 05/02/2022 9:28 AM EDT [facility] pharmacy calling stating patient was in [facility] and has been starteed o nthe follow medications. Please call in the following prescriptions: Atorvastatin 10 mg one tablet at bedtime Iron 325 mg one tablet twice daily Metformin 500 mg two tablets twice daily Patient uses pharmacy on file. documented in this encounterMer[facility]06[facility]22 Miscellaneous Notes* Telephone Encounter - Татьяна [...] notify patient. Chica Todd documented in this encounterMer[facility]06[facility]15-2022 Instructions* Patient Instructions* Radha Batista APRN.CNP - 03/27/2022 2:34 PM EDT 1. Apply the triamcinolone ointment twice daily to the irritated skin from the cpap straps. Leave open to air during the day. In the evening, use guaze between face and cpap straps until healed. 2. Notify provider if no better or any worsening. documented in this encounterMer[facility] Health [facility]06-15-2022 History of Present illness Narrative* Radha [...] HISTORY Diagnosis Date Bilateral pneumonia 07/23/2018 Admit [facility]: pneumococcal suspected, neg culture. 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 Radha Batista APRN.CNP documented in this encounterMercy Health [facility]04-20-2022 Instructions* Patient Instructions* Radha Batista APRN.CNP - 01/30/2022 1:40 PM EDT 1. Moist heat/ice to the affected area, as discussed. 2. Ibuprofen 200-400 mg every 8 hours as needed for pain. 3. Stretching and massage, as discussed. 4. Let us know if no better or any worsening. documented in this encounterMercy Health St[facility]04-20-2022 History of Present illness Narrative* Radha [...] HISTORY Diagnosis Date Bilateral pneumonia 07/23/2018 Admit [facility]: pneumococcal suspected, neg culture. 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 Lancing Device with Lancets ([employer] DELPocket Change PLUS LANC DEV) Check blood sugars twice [...] once daily. Per Dr. Ramirez Comp Stocking,Knee,Regular[place] [facility] [place] for correct size. [...] plan. This note was partially generated using [employer] voice recognition system. Note was reviewed for accuracy. There may be minor misspellings or grammar miscues with [employer] voice recognition. documented in this encounterMercy Health [facility]04-19-2022 Miscellaneous Notes* Telephone Encounter - Frank Joya LPN - 01/29/2022 1:00 PM EDT [facility] notified, appt scheduled. Frank Joya LPN * Telephone Encounter - Radha Batista APRN.CNP - 01/29/2022 12:29 PM EDT Needs an appointment to have back pain evaluated. Radha Batista APRN.CNP * Telephone Encounter - Brandy Mark LPN - 01/29/2022 10:11 AM EDT Yolie, mental health case manager/social media campaign manager [facility] calling and states that pt is having muscle/sciatic pain. Pt lives in a senior care. This pain is upsetting, agitating an working on pt's mental health. Pt was on Tylenol but was discontinued due to fatty liver. Yolie is requesting something pt can take for the above pain, [id number] be sent to [facility] if possible. Even though OTC they would still need to have a prescription sent. Yolie will be calling back later to schedule an apt for pt. Please advise Yolie. Brandy Mark LPN documented in this encounterMercy [facility]04-04-2022 History of Present illness Narrative* Aleksandar Jones MD - 01/14/2022 3:21 PM EDT Patient presents with: 6 Month Exam HPI: Patient presents today for office visit for follow up. Accompanies by her outsole caser. Seeing psych. Recently saw cardiology for [...] take as directed. Lancing Device with Lancets ([employer] PLUS LANC DEV) Check blood sugars twice [...] HISTORY Diagnosis Date Bilateral pneumonia 07/23/2018 Admit [facility]: pneumococcal suspected, neg culture. + rhinovirus Constipation COPD (chronic obstructive pulmonary disease) (HCC) Diabetes 1.5, managed as type 2 ([facility]) [facility], pt [...] Comment: kasiedenise- Teen yrs, but not now Reviewed current [...] - sees podiatry regularly, Dr. Salmon in [place]. Saw in August LUNG CANCER SCREENING-will check [...] (HCC) - ICD9: 496, ICD10: J44.9 - per [...] - ICD9: 295.42, ICD10: F20.81 - per [facility] 9. Vitamin D deficiency - ICD9: 268.9, ICD10: E55.9 - will follow. 10. Advance care planning - ICD9: V65.49, ICD10: Z71.89 - done. Aleksandar Jones RTO in six months and prn. documented in this encounterMercy Health [facility]04-04-2022 Miscellaneous Notes* Telephone Encounter - Maye Nabil CANO - 01/14/2022 10:09 AM EDT Patient [...] you. Maye Ferrer LPN documented in this encounterMer[facility]04-01-2022 Miscellaneous Notes* Telephone Encounter - Alma [...] you. Alma Smart RN documented in this encounterMercy Health St[facility]10-07-2021 History of Present illness Narrative* Neelima [...] 19, 2021 3:05 PM documented in this encounterMercy Health St. [facility]08-09-2021 History of Past illness Narrative* Problem [...] Routine gynecological examination 08/29/2009 11/26/2011 Overview: [facility], [facility] [place] w/o Complication Type II 11/08/200802/10 Other abnormal glucose 8 Overview: found at [facility], pt was on metformin for a while but taken off - pt never told if she had DM or not A1c 6.5% as of documented as of this encounter (statuses as of 01/14/2022) [facility]08-09-[facility] History of Past illness Narrative* Problem [...] Routine gynecological examination 08/29/2009 11/26/2011 Overview: [facility], [facility] [place] DM w/o Complication Type II 11/08/200802/10 Other abnormal glucose 8 Overview: found at [facility], pt was on metformin for a while but taken off - pt never told if she had DM or not A1c 6.5% as of documented as of this encounter (statuses as of 01/29/2022) [facility]08-[facility] History of Past illness Narrative* Problem [...] Routine gynecological examination 08/29/2009 11/26/2011 Overview: [facility], [facility] [place] DM w/o Complication Type II 11/08/200802/10 Other abnormal glucose 8 Overview: found at [facility], pt was on metformin for a while but taken off - pt never told if she had DM or not A1c 6.5% as of documented as of this encounter (statuses as of 01/30/2022) [facility]08-[facility] History of Past illness Narrative* Problem [...] Routine gynecological examination 08/29/2009 11/26/2011 Overview: [facility], [facility] [place] DM w/o Complication Type II 11/08/200802/10 Other abnormal glucose 8 Overview: found at [facility], pt was on metformin for a while but taken off - pt never told if she had DM or not A1c 6.5% as of documented as of this encounter (statuses as of 03/27/2022) [facility] History of Past illness Narrative* Problem [...] Routine gynecological examination 08/29/2009 11/26/2011 Overview: [facility], [facility] [place] DM w/o Complication Type II 11/08/200802/10 Other abnormal glucose 8 Overview: [facility], pt was on metformin for a while but taken off - pt never told if she had DM or not A1c 6.5% as of documented as of this encounter (statuses as of 05/02/2022) [facility] History of Past illness Narrative* Problem [...] Routine gynecological examination 08/29/2009 11/26/2011 Overview: [facility], [facility] [place] DM w/o Complication Type II 11/08/200802/10 Other abnormal glucose 8 Overview: found at [facility], pt was on metformin for a while but taken off - pt never told if she had DM or not A1c 6.5% as of documented as of this encounter (statuses as of 05/07/2022) [facility] History of Past illness Narrative* Problem [...] Routine gynecological examination 08/29/2009 11/26/2011 Overview: [facility], [facility] [place] DM w/o Complication Type II 11/08/200802/10 Other abnormal glucose 8 Overview: found at [facility], pt was on metformin for a while but taken off - pt never told if she had DM or not A1c 6.5% as of documented as of this encounter (statuses as of 05/08/2022) [facility] History of Past illness Narrative* Problem [...] check Routine gynecological examination 08/29/2009 11/26/2011 Overview: [facility], [facility] [place] DM w/o Complication Type II 11/08/200802/10 Other abnormal glucose 8 Overview: found at [facility], pt was on metformin for a while but taken off - pt never told if she had DM or not A1c 6.5% as of documented as of this encounter (statuses as of 06/20/2022) [facility] of Past illness Narrative* Problem [...] Routine gynecological examination 08/29/2009 11/26/2011 Overview: [facility], [facility] [place] DM w/o Complication Type II 11/08/200802/10 Other abnormal glucose 8 Overview: found at [facility], pt was on metformin for a while but taken off - pt never told if she had DM or not A1c 6.5% as of documented as of this encounter (statuses as of 07/05/2022) [facility] of Past illness Narrative* Problem [...] Routine gynecological examination 08/29/2009 11/26/2011 Overview: [facility], [facility] [place] w/o Complication Type II 11/08/200802/10 Other abnormal glucose 8 Overview: [facility], pt was on metformin for a while but taken off - pt never told if she had DM or not A1c 6.5% as of documented as of this encounter (statuses as of 08/08/2022) [facility] History of Past illness Narrative* Problem [...] Routine gynecological examination 08/29/2009 11/26/2011 Overview: [facility], [facility] [place] DM w/o Complication Type II 11/08/200802/10 Other abnormal glucose 8 Overview: found at [facility], pt was on metformin for a while but taken off - pt never told if she had DM or not A1c 6.5% as of documented as of this encounter (statuses as of 08/12/2022) [facility] of Past illness Narrative* Problem [...] Routine gynecological examination 08/29/2009 11/26/2011 Overview: [facility], [facility] [place] DM w/o Complication Type II 11/08/200802/10 Other abnormal glucose 8 Overview: found at [facility], pt was on metformin for a while but taken off - pt never told if she had DM or not A1c 6.5% as of documented as of this encounter (statuses as of 08/15/2022) [facility] of Past illness Narrative* Problem [...] Routine gynecological examination 08/29/2009 11/26/2011 Overview: [facility], [facility] [place] DM w/o Complication Type II 11/08/200802/10 Other abnormal glucose 8 Overview: found at [facility], pt was on metformin for a while but taken off - pt never told if she had DM or not A1c 6.5% as of documented as of this encounter (statuses as of 08/15/2022) [facility] of Past illness Narrative* Problem [...] gynecological examination 08/29/2009 11/26/2011 Overview: [facility] [place], [facility] [place] DM w/o Complication Type II 11/08/200802/10 Other abnormal glucose 8 Overview: found at [facility], pt was on metformin for a while but taken off - pt never told if she had DM or not A1c 6.5% as of documented as of this encounter (statuses as of 08/19/2022) [facility] of Past illness Narrative* Problem [...] Routine gynecological examination 08/29/2009 11/26/2011 Overview: [facility], [facility] [place] w/o Complication Type II 11/08/200802/10 Other abnormal glucose 8 Overview: found at [facility], pt was on metformin for a while but taken off - pt never told if she had DM or not A1c 6.5% as of documented as of this encounter (statuses as of 08/29/2022) [facility] of Past illness Narrative* Problem [...] Routine gynecological examination 08/29/2009 11/26/2011 Overview: [facility], [facility] [place] w/o Complication Type II 11/08/200802/10 Other abnormal glucose 8 Overview: found at [facility], pt was on metformin for a while but taken off - pt never told if she had DM or not A1c 6.5% as of documented as of this encounter (statuses as of 08/30/2022) [facility] of Past illness Narrative* Problem [...] check Routine gynecological examination 08/29/2009 11/26/2011 Overview: [facility], [facility] [place] w/o Complication Type II 11/08/200802/10 Other abnormal glucose 8 Overview: found at [facility], pt was on metformin for a while but taken off - pt never told if she had DM or not A1c 6.5% as of documented as of this encounter (statuses as of 09/11/2022) [facility] of Past illness Narrative* Problem [...] Routine gynecological examination 08/29/2009 11/26/2011 Overview: [facility], [facility] [place] w/o Complication Type II 11/08/200802/10 Other abnormal glucose 8 Overview: found at [facility], pt was on metformin for a while but taken off - pt never told if she had DM or not A1c 6.5% as of documented as of this encounter (statuses as of 10/06/2022) [facility] of Past illness Narrative* Problem [...] Routine gynecological examination 08/29/2009 11/26/2011 Overview: [facility], [facility] [place] w/o Complication Type II 11/08/200802/10 Other abnormal glucose 8 Overview: found at [facility], pt was on metformin for a while but taken off - pt never told if she had DM or not A1c 6.5% as of documented as of this encounter (statuses as of 10/13/2022) [facility] of Past illness Narrative* Problem [...] gynecological examination 08/29/2009 11/26/2011 Overview: [facility] [place], [facility] [place] DM w/o Complication Type II 11/08/200802/10 Other abnormal glucose 8 Overview: found at [facility], pt was on metformin for a while but taken off - pt never told if she had DM or not A1c 6.5% as of documented as of this encounter (statuses as of 12/09/2022) [facility] of Past illness Narrative* Problem [...] Routine gynecological examination 08/29/2009 11/26/2011 Overview: [facility], [facility] [place] w/o Complication Type II 11/08/200802/10 Other abnormal glucose 8 Overview: found at [facility], pt was on metformin for a while but taken off - pt never told if she had DM or not A1c 6.5% as of documented as of this encounter (statuses as of 01/30/2023) [facility] of Past illness Narrative* Problem [...] Routine gynecological examination 08/29/2009 11/26/2011 Overview: [facility], [facility] [place] w/o Complication Type II 11/08/200802/10 Other abnormal glucose 8 Overview: found at [facility], pt was on metformin for a while but taken off - pt never told if she had DM or not A1c 6.5% as of documented as of this encounter (statuses as of 02/14/2023) [facility] of Past illness Narrative* Problem [...] Routine gynecological examination 08/29/2009 11/26/2011 Overview: [facility], [facility] [place] w/o Complication Type II 11/08/200802/10 Other abnormal glucose 8 Overview: found at [facility], pt was on metformin for a while but taken off - pt never told if she had DM or not A1c 6.5% as of documented as of this encounter (statuses as of 02/26/2023) [facility] of Past illness Narrative* Problem [...] Routine gynecological examination 08/29/2009 11/26/2011 Overview: [facility], [facility] [place] w/o Complication Type II 11/08/2008 02/22/2014 Other abnormal glucose 04/29 Overview: [facility], pt was on metformin for a while but taken off - pt never told if she had DM or not A1c 6.5% as of documented as of this encounter (statuses as of 04/30/2023) [facility] of Past illness Narrative* Problem [...] Routine gynecological examination 08/29/2009 11/26/2011 Overview: [facility], [facility] [place] w/o Complication Type II 11/08/2008 02/22/2014 Other abnormal glucose 04/29 Overview: found at [facility], pt was on metformin for a while but taken off - pt never told if she had DM or not A1c 6.5% as of documented as of this encounter (statuses as of 05/08/2023) [facility] of Past illness Narrative* Problem [...] Routine gynecological examination 08/29/2009 11/26/2011 Overview: [facility], [facility] [place] w/o Complication Type II 11/08/2008 02/22/2014 Other abnormal glucose 04/29 Overview: found at [facility], pt was on metformin for a while but taken off - pt never told if she had DM or not A1c 6.5% as of documented as of this encounter (statuses as of 05/24/2023) [facility] illness Narrative* Problem [...] Routine gynecological examination 08/29/2009 11/26/2011 Overview: [facility], [facility] [place] DM w/o Complication Type II 11/08/2008 02/22/2014 Other abnormal glucose 04/29 Overview: found at [facility], pt was on metformin for a while but taken off - pt never told if she had DM or not A1c 6.5% as of documented as of this encounter (statuses as of 05/26/2023) [facility] of Past illness Narrative* Problem [...] Routine gynecological examination 08/29/2009 11/26/2011 Overview: [facility], [facility] [place] w/o Complication Type II 11/08/2008 02/22/2014 Other abnormal glucose 04/29 Overview: found at [facility], pt was on metformin for a while but taken off - pt never told if she had DM or not A1c 6.5% as of documented as of this encounter (statuses as of 05/27/2023) [facility] illness Narrative* Problem [...] Routine gynecological examination 08/29/2009 11/26/2011 Overview: [facility], [facility] [place] w/o Complication Type II 11/08/2008 02/22/2014 Other abnormal glucose 04/29 Overview: found at [facility], pt was on metformin for a while but taken off - pt never told if she had DM or not A1c 6.5% as of documented as of this encounter (statuses as of 05/28/2023) [facility] illness Narrative* Problem [...] Routine gynecological examination 08/29/2009 11/26/2011 Overview: [facility], [facility] [place] w/o Complication Type II 11/08/2008 02/22/2014 Other abnormal glucose 04/29 Overview: found at [facility], pt was on metformin for a while but taken off - pt never told if she had DM or not A1c 6.5% as of documented as of this encounter (statuses as of 06/18/2023) [facility] of Past illness Narrative* Problem [...] examination 08/29/2009 11/26/2011 Overview: [facility], [facility] [place] DM w/o Complication Type II 11/08/2008 02/22/2014 Other abnormal glucose 04/29 Overview: found at [facility], pt was on metformin for a while but taken off - pt never told if she had DM or not A1c 6.5% as of documented as of this encounter (statuses as of 07/17/2023) [facility] of Past illness Narrative* Problem [...] Routine gynecological examination 08/29/2009 11/26/2011 Overview: [facility], [facility] [place] w/o Complication Type II 11/08/2008 02/22/2014 Other abnormal glucose 04/29 Overview: found at [facility], pt was on metformin for a while but taken off - pt never told if she had DM or not A1c 6.5% as of documented as of this encounter (statuses as of 07/21/2023) [facility] of Past illness Narrative* Problem [...] Routine gynecological examination 08/29/2009 11/26/2011 Overview: [facility], [facility] [place] w/o Complication Type II 11/08/2008 02/22/2014 Other abnormal glucose 04/29 Overview: found at [facility], pt was on metformin for a while but taken off - pt never told if she had DM or not A1c 6.5% as of documented as of this encounter (statuses as of 08/12/2023) [facility] Past [facility] Narrative* Problem [...] check Routine gynecological examination 08/29/2009 11/26/2011 Overview: [facility], [facility] [place] DM w/o Complication Type II 11/08/2008 02/22/2014 Other abnormal glucose 04/29 Overview: found at [facility], pt was on metformin for a while but taken off - pt never told if she had DM or not A1c 6.5% as of documented as of this encounter (statuses as of 08/16/2023) [facility] of Past illness Narrative* Problem [...] Routine gynecological examination 08/29/2009 11/26/2011 Overview: [facility], [facility] [place] w/o Complication Type II 11/08/2008 02/22/2014 Other abnormal glucose 04/29 Overview: found at [facility], pt was on metformin for a while but taken off - pt never told if she had DM or not A1c 6.5% as of documented as of this encounter (statuses as of 08/20/2023) [facility] Narrative* Problem [...] Routine gynecological examination 08/29/2009 11/26/2011 Overview: [facility], [facility] [place] w/o Complication Type II 11/08/2008 02/22/2014 Other abnormal glucose 04/29 Overview: found at [facility], pt was on metformin for a while but taken off - pt never told if she had DM or not A1c 6.5% as of documented as of this encounter (statuses as of 08/21/2023) [facility]08-09-2021 History of Past illness Narrative* Problem [...] check Routine gynecological examination 08/29/2009 11/26/2011 Overview: [facility], [facility] [place] w/o Complication Type II 11/08/2008 02/22/2014 Other abnormal glucose 04/29 Overview: [facility], pt was on metformin for a while but taken off - pt never told if she had DM or not A1c 6.5% as of documented as of this encounter (statuses as of 08/28/2023) [facility]08-09-2021 History of Past illness Narrative* Problem [...] Routine gynecological examination 08/29/2009 11/26/2011 Overview: [facility], [facility] [place] DM w/o Complication Type II 11/08/2008 02/22/2014 Other abnormal glucose 04/29 Overview: [facility], pt was on metformin for a while but taken off - pt never told if she had DM or not A1c 6.5% as of documented as of this encounter (statuses as of 08/29/2023) [facility]08-09-2021 History of Past illness Narrative* Problem [...] Routine gynecological examination 08/29/2009 11/26/2011 Overview: [facility], [facility] [place] DM w/o Complication Type II 11/08/2008 02/22/2014 Other abnormal glucose 04/29 Overview: [facility], pt was on metformin for a while but taken off - pt never told if she had DM or not A1c 6.5% as of documented as of this encounter (statuses as of 09/01/2023) [facility]08-09[facility]21 History of Past illness Narrative* Problem [...] Routine gynecological examination 08/29/2009 11/26/2011 Overview: [facility], [facility] [place] DM w/o Complication Type II 11/08/2008 02/22/2014 Other abnormal glucose 04/29 Overview: [facility], pt was on metformin for a while but taken off - pt never told if she had DM or not A1c 6.5% as of documented as of this encounter (statuses as of 09/10/2023) [facility]08-09[facility]21 History of Past illness Narrative* Problem [...] Routine gynecological examination 08/29/2009 11/26/2011 Overview: [facility], [facility] [place] DM w/o Complication Type II 11/08/2008 02/22/2014 Other abnormal glucose 04/29 Overview: [facility], pt was on metformin for a while but taken off - pt never told if she had DM or not A1c 6.5% as of documented as of this encounter (statuses as of 09/10/2023) [facility]08-[facility] History of Past illness Narrative* Problem [...] Routine gynecological examination 08/29/2009 11/26/2011 Overview: [facility], [facility] [place] DM w/o Complication Type II 11/08/2008 02/22/2014 Other abnormal glucose 04/29 Overview: [facility] at [facility], pt was on metformin for a while but taken off - pt never told if she had DM or not A1c 6.5% as of documented as of this encounter (statuses as of 09/23/2023) [facility] History of Past illness Narrative* Problem [...] Routine gynecological examination 08/29/2009 11/26/2011 Overview: [facility], [facility] [place] DM w/o Complication Type II 11/08/2008 02/22/2014 Other abnormal glucose 04/29 Overview: found at [facility], pt was on metformin for a while but taken off - pt never told if she had DM or not A1c 6.5% as of documented as of this encounter (statuses as of 11/20/2023) [facility] History of Past illness Narrative* Problem [...] Routine gynecological examination 08/29/2009 11/26/2011 Overview: [facility], [facility] [place] DM w/o Complication Type II 11/08/2008 02/22/2014 Other abnormal glucose 04/29 Overview: found at [facility], pt was on metformin for a while but taken off - pt never told if she had DM or not A1c 6.5% as of documented as of this encounter (statuses as of 12/02/2023) [facility] History of Past illness Narrative* Problem [...] Routine gynecological examination 08/29/2009 11/26/2011 Overview: [facility], [facility] [place] DM w/o Complication Type II 11/08/2008 02/22/2014 Other abnormal glucose 04/29 Overview: found [facility], pt was on metformin for a while but taken off - pt never told if she had DM or not A1c 6.5% as of documented as of this encounter (statuses as of 01/14/2024) [facility]08-09[facility] History of Past illness Narrative* Problem [...] Routine gynecological examination 08/29/2009 11/26/2011 Overview: [facility], [facility] [place] DM w/o Complication Type II 11/08/2008 02/22/2014 Other abnormal glucose 04/29 Overview: found at [facility], pt was on metformin for a while but taken off - pt never told if she had DM or not A1c 6.5% as of documented as of this encounter (statuses as of 01/22/2024) [facility]08-09[facility] History of Past illness Narrative* Problem [...] Routine gynecological examination 08/29/2009 11/26/2011 Overview: [facility], [facility] [place] w/o Complication Type II 11/08/2008 02/22/2014 Other abnormal glucose 04/29 Overview: found at [facility], pt was on metformin for a while but taken off - pt never told if she had DM or not A1c 6.5% as of documented as of this encounter (statuses as of 01/30/2024) [facility]01-06-2021 History of Present illness Narrative* Neelima [...] 18, 2020 9:54 AM documented [facility] History of Past illness Narrative* Problem [...] examination 08/29/2009 11/26/2011 Overview: [facility], [facility] [place] DM w/o Complication Type II 11/08/200802/10 Other abnormal glucose 8 Overview: found [facility], pt was on metformin for a while but taken off - pt never told if she had DM or not A1c 6.5% as of 4-2011 documented as of this encounter (statuses as of 01/11/2022) [facility]10-[facility]-2018 History of Past illness Narrative* Problem [...] gynecological examination 08/29/2009 11/26/2011 Overview: [facility] [place], [facility] DM w/o Complication Type II 11/08/200802/10 Other abnormal glucose 8 Overview: found at [facility], pt was on metformin for a while but taken off - pt never told if she had DM or not A1c 6.5% as of documented as of this encounter (statuses as of 01/14/2022) [facility] Author Rolf Agudelo [facility] Note Date/Time June 23, 2025 12:36pm [facility] Medical Records Department [address] [place] [address] Anesthesia Postop Eval I 06/23/25 1235 MR#: [id number] Acct: [id number] Name: BRENDA LE Rep #:[id number] : 1965 59 From: Rolf Agudelo CRNA PCP: Dr. Aleksandar Jones MD Status:REG S DC Y Race: C Location: [place] [address] Anesthesia: Postop Eval I Current Vital Signs Temperature: 97.4 F Pulse Rate: 74 Blood Pressure: 107/59 Respiratory Rate: 18 Pulse Ox: 94 Oxygen Delivery Method: Room Air Assessment Airway patent: Yes Spontaneous unlabored respirations: Yes Mental status: Awake and Calm nausea: Yes Vomiting: Yes Anesthesia Complication: No Fluid Hydration Crystalloid volume administer (ml): 900 Total IV fluid infused: 900 Progress Note Anesthesia document: Postop Eval 1 completed: No 06/23/25 1236 <Electronically signed by Rolf cisse INSURANCE SALES ASSISTANT> Date _ Rolf Agudelo INSURANCE SALES ASSISTANT Cosigner Signature: Date CC: ~ Signed [facility] Work Phone: Discharge summary Author Babak Garcia [facility] Note Date/Time December 21, 2024 12: 14pm [facility] Medical Records Department [address] [place] [address] Emergency Department Summary 12/21/24 MR#: [id number] Acct: [id number] Name: BRENDA LE Rep #:[id number] : 1965 59 From: Babak Garcia DO PCP: Shelia Salmon, [employer]OUNDER [employer] Status:REG ER Location: ED HPI History of [...] 2 ill individuals right now in her senior care. Patient states that she has been wheezing a lot lately. Per EMS they did not give any breathing treatments as her lungs were clear for them. [facility] Medical History Obesity (BMI 30-39.9) Hyponatremia [...] of cholecystectomy Social History housing: other details: shelter. Smoking Status: Former smoker how long ago [...] H Lymph % (Auto) Cancelled 8.6 L Garland % (Auto) Cancelled 4.7 Eos % (Auto) [...] Drop Cells Cancelled Ovalocytes Cancelled Stomatocytes Cancelled Mtz-Blevins Bodies Cancelled Sara Cells Cancelled Bite Cells [...] Clarity Clear Urine pH 6.5 Ur Specific [place] 1.010 Urine Protein 15 H Urine Glucose [...] (Auto) Neut % (Auto) Lymph % (Auto) Garland % (Auto) Eos % (Auto) Baso % [...] Target Cells Tear Drop Cells Ovalocytes Stomatocytes Mtz-Blevins Bodies [place] Cells Bite Cells Crenated Cell Acanthocytes (Spur) [...] Color Urine Clarity Urine pH Ur Specific [place] Urine Protein Urine Glucose (UA) Urine Ketones Urine Occult Blood Urine Nitrite Urine Bilirubin Urine Urobilinogen Ur Leukocyte Esterase Urine RBC Urine WBC Ur Squamous Epith Cells Urine Bacteria Urine Mucus Radiography Diagnostic Testing: Clinical Impression(s) from Imaging Studies Chest X-Ray 12/21/24 08:48 IMPRESSION: Pulmonary venous congestion. Reading [facility] Discharge Plan Triage Chief Complaint: Shortness of [...] Primary Care Provider: Shelia Salmon Referrals: Shelia Salmon CNS [Primary Care Provider] - Activity Restrictions/Additional Instructions: You tested positive for COVID-19 here in the emergency department. Start the steroid that was sent to your pharmacy tomorrow as you were given a dose here today already. Use Zofran as needed for nausea. Ensure adequate hydration. Return with worsening symptoms or any concerns. Follow-up with your doctor in outpatient setting. Print Language: [place] Islander Disposition Disposition: Home, Self Care What to do if you have Problems For any increased pain, shortness of breath, bleeding, nausea or vomiting, chestpain, or any unexpected problems, contact your Primary Care Provider. Call [facility] ([phone]) or report to the closest Emergency Room. Call 911 if necessary. 12/21/24 1214 <Electronically signed by Babak Garcia DO> Jpigner Signature (if applicable): CC: ESEQUIEL Salmon ~ Signed [facility] Work Phone: Evaluation noteNo assessment information available [facility] Work Phone: Evaluation note* Diagnosis Chronic constipation Unspecified constipation [facility] Diagnosis Chronic idiopathic constipation Unspecified constipation Iron deficiency anemia, unspecified iron deficiency anemia type documented [facility] this [facility]* Diagnosis Tachycardia- Primary Tachycardia, unspecified SVT (supraventricular tachycardia) (HCC) Other specified cardiac dysrhythmias Acute diastolic CHF [...] Other specified counseling [facility]* Diagnosis Right hip pain- Primary Pain in joint, pelvic region and thigh documented [facility]* Diagnosis Skin irritation- Primary Unspecified disorder of skin and subcutaneous tissue Rosacea [facility]* Diagnosis Chronic constipation Unspecified constipation [facility]* Diagnosis Restless leg syndrome Restless legs syndrome (RLS) documented [facility] this [facility]* Diagnosis Injury of toenail of right foot, initial encounter- Primary documented [facility] this [facility]* Diagnosis Conjunctivitis of left eye, unspecified conjunctivitis type- Primary Facial infection Other specified infectious and parasitic diseases documented [facility] this [facility]* Diagnosis Encounter for screening mammogram for breast cancer [facility] Diagnosis GERD without esophagitis Esophageal reflux Epigastric pain Abdominal pain, epigastric documented [facility] this [facility]* Diagnosis Type 2 diabetes mellitus with diabetic nephropathy, with long-term current use of insulin (HCC)- Primary Schizophreniform disorder, chronic condition (HCC) Schizophreniform disorder, chronic condition Hyperlipidemia, unspecified hyperlipidemia type LIDA (obstructive sleep apnea) Obstructive sleep apnea (adult) (pediatric) Rosacea Upper back pain Gassiness Flatulence, eructation, and gas pain documented [facility] this encounter [facility]* Diagnosis Hyperlipidemia, unspecified hyperlipidemia type documented [facility] this [facility]* Diagnosis Type 2 diabetes mellitus with diabetic nephropathy, with long-term current use of insulin ([facility]) documented in this [facility]* Diagnosis GERD without esophagitis Esophageal reflux Epigastric pain Abdominal pain, epigastric documented in this [facility]* Diagnosis COVID-19 documented [facility] this [facility]* Diagnosis Chest pain, unspecified type- Primary [...] [facility] Diagnosis Tachycardia- Primary Tachycardia, unspecified [facility]* Diagnosis Restless leg syndrome Restless legs syndrome (RLS) documented in this encounter [facility] note* Diagnosis Encounter for screening mammogram for breast cancer [facility]* Diagnosis Hyperlipidemia, unspecified hyperlipidemia type [facility]* Diagnosis Onset Date Resolution Status COPD exacerbation chronic [facility] Work Phone: Evaluation note* Diagnosis Type 2 diabetes mellitus with diabetic nephropathy, with long-term current use of insulin ([facility]) [facility] this [facility]* Diagnosis Itching in the vaginal area- Primary Pruritus of genital organs documented in this encounter [facility] note* Diagnosis Type 2 diabetes mellitus with diabetic nephropathy, with long-term current use of insulin (HCC)- Primary documented in this encounter [facility] note* Diagnosis Onset Date Resolution Status COPD exacerbation resolved [facility] Work Phone: Evaluation note* Diagnosis Primary hypertension- Primary Unspecified essential hypertension Pure hypercholesterolemia SVT (supraventricular tachycardia) Other specified cardiac dysrhythmias documented in this encounter [facility] note* Diagnosis Pain in both lower extremities GERD without esophagitis Esophageal reflux Epigastric pain Abdominal pain, epigastric [facility]* Diagnosis Acute constipation- Primary Unspecified constipation Nasal dryness Other diseases of nasal cavity and sinuses Pain in both lower extremities Leg weakness, bilateral Other musculoskeletal symptoms referable to limbs Sedative, hypnotic or anxiolytic dependence, uncomplicated (HCC) Acute respiratory failure with hypoxia (HCC) Acute respiratory failure Chronic obstructive pulmonary disease, unspecified COPD type (HCC) SVT (supraventricular tachycardia) ([facility]) Other specified cardiac dysrhythmias documented in this encounter [facility] note* Diagnosis Leg weakness, bilateral Other musculoskeletal symptoms referable to limbs documented in this encounter [facility] note* Diagnosis Leg weakness, bilateral- Primary Other [...] hyperglycemia (HCC)- Primary documented in this encounter [facility] note* Diagnosis Weakness of both lower extremities- Primary [facility]* Diagnosis Folliculitis- Primary Other specified disease of hair and hair follicles Fatigue, unspecified type documented in this encounter [facility] note* Diagnosis Restless leg syndrome Restless legs syndrome (RLS) [facility]* Diagnosis GERD without esophagitis Esophageal reflux Epigastric pain Abdominal pain, epigastric documented in this encounter [facility] note* Diagnosis Uncontrolled type 2 diabetes mellitus with hyperglycemia (HCC) [facility]* Diagnosis Acute constipation Unspecified constipation documented in this encounter [facility] note* Diagnosis Encounter for screening mammogram for breast cancer [facility]* Diagnosis Uncontrolled type 2 diabetes mellitus [...] deficiency Pure hypercholesterolemia documented in this encounter [facility] note* Diagnosis Hyperlipidemia, unspecified hyperlipidemia type [facility]* Diagnosis Behavioral change Unspecified disturbance of conduct Altered mental status, unspecified altered mental status type documented in this encounter [facility] note* Diagnosis SOB (shortness of breath) Shortness of breath Cough [facility]* Diagnosis Pain of right eye- Primary Pain in or around eye [facility]* Diagnosis Acute diastolic CHF (congestive heart failure) (HCC) Acute diastolic heart failure [facility]* Diagnosis LIDA (obstructive sleep apnea)- Primary Obstructive sleep apnea (adult) (pediatric) Acute exacerbation of chronic obstructive pulmonary disease (COPD) (HCC) Obstructive chronic bronchitis with exacerbation Tachycardia Tachycardia, unspecified Tinea cruris Dermatophytosis of groin and perianal area documented in this encounter [facility] note* Diagnosis Uncontrolled type 2 diabetes mellitus with hyperglycemia (HCC) [facility]* Diagnosis Chronic obstructive pulmonary disease, unspecified COPD type (HCC)- Primary Leg pain, bilateral Pain in limb Encounter for immunization Need for other specified prophylactic vaccination against single bacterial disease [facility]* Diagnosis Primary hypertension- Primary Unspecified essential hypertension Pure hypercholesterolemia SVT (supraventricular tachycardia) (HCC) Other specified cardiac dysrhythmias Tachycardia Tachycardia, unspecified documented in this encounter [facility] note* Diagnosis Nasal dryness Other diseases of nasal cavity and sinuses [facility] this [facility]* Diagnosis Leg pain, bilateral- Primary Pain in limb [facility]* Diagnosis Leg pain, bilateral Pain in limb GERD without esophagitis Esophageal reflux Epigastric pain Abdominal pain, epigastric [facility]* Diagnosis Weakness of both lower extremities- Primary Uncontrolled type 2 diabetes mellitus with hyperglycemia (HCC) Hyperlipidemia, unspecified hyperlipidemia type Leg pain, bilateral Pain in limb Weakness of both lower extremities [facility]* Diagnosis Weakness of both lower extremities [facility]* Diagnosis Hyponatremia- Primary Hyposmolality and/or hyponatremia Leg pain, bilateral Pain in limb [facility]* Diagnosis Pneumonia of right lung due to infectious organism, unspecified part of lung- Primary Fever, unspecified fever cause Acute cough URI, acute Acute upper respiratory infections of unspecified site Acute cough [facility]* Diagnosis Acute cough documented [facility] this [facility]* Diagnosis Acute constipation Unspecified constipation documented [facility] this [facility]* Diagnosis Leg pain, bilateral- Primary Pain in limb Bacterial pneumonia Bacterial pneumonia, unspecified Bacterial pneumonia Bacterial pneumonia, unspecified [facility]* Diagnosis Bacterial pneumonia Bacterial pneumonia, unspecified documented [facility]* Diagnosis Leg pain, bilateral Pain in limb documented [facility]* Diagnosis COVID- Primary Acute diastolic CHF [...] disorder, chronic condition [facility] Leg pain, bilateral Pain in limb [facility]* Diagnosis Exposure to hepatitis B- Primary Contact with or exposure to other viral diseases [facility]* Diagnosis Hyponatremia- Primary Hyposmolality and/or hyponatremia Leukocytosis, unspecified type [facility]* Diagnosis False-positive serological test result [R76.8]- Primary [facility]* Diagnosis Hyponatremia- Primary Hyposmolality and/or hyponatremia [facility]* Diagnosis Tobacco abuse Tobacco use disorder [facility]* Diagnosis Hepatitis B core antibody positive- Primary Other and unspecified nonspecific immunological findings [facility]* Diagnosis Water intoxication- Primary Other fluid [...] [facility]* Diagnosis Liver function test abnormality- Primary Other abnormal blood chemistry Acute diastolic CHF (congestive heart failure) (HCC) Acute diastolic heart failure documented in this encounter [facility] Diagnosis Elevated liver enzymes- Primary Other nonspecific abnormal serum enzyme levels Hepatitis B core antibody positive Other and unspecified nonspecific immunological findings [facility] Liver function test abnormality- Primary Other abnormal blood chemistry Hyponatremia Hyposmolality and/or hyponatremia [facility] Diagnosis Elevated liver enzymes Other nonspecific abnormal serum enzyme levels documented in this encounter [facility] note* Diagnosis Encounter for screening mammogram for breast cancer documented in this encounter [facility] note* Diagnosis Leg pain, bilateral Pain in limb documented in this encounter [facility] note* Diagnosis Leg pain, bilateral Pain in limb documented in this encounter [facility] note* Diagnosis Cough, unspecified type documented in this encounter [facility] note* Diagnosis Hyponatremia- Primary Hyposmolality and/or hyponatremia [...] Cough, unspecified type documented in this encounter [facility] note* Diagnosis Primary hypertension- Primary Unspecified essential hypertension SVT (supraventricular tachycardia) (HCC) Other specified cardiac dysrhythmias documented in this encounter [facility] note* Diagnosis Onset Date Resolution Status Admit Date Constipation noneactive May 10 025 12:24pm [facility]: [facility] Diagnosis Nocturnal enuresis- Primary documented in this encounter [facility] note* Diagnosis GERD without esophagitis- Primary Esophageal reflux Epigastric pain Abdominal pain, epigastric Venous insufficiency Unspecified venous (peripheral) insufficiency Pure hypercholesterolemia Water intoxication Other fluid overload Hyponatremia Hyposmolality and/or hyponatremia Type 2 diabetes mellitus with diabetic nephropathy, 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, chronic condition (HCC) Schizophreniform disorder, chronic condition LIDA (obstructive sleep apnea) Obstructive sleep apnea (adult) (pediatric) SVT (supraventricular tachycardia) (HCC) Other specified cardiac dysrhythmias Edema, unspecified type Tachycardia Tachycardia, unspecified Acute diastolic CHF (congestive heart failure) (HCC) Acute diastolic heart failure Obesity, Class II, BMI 35-39.9 Obesity, unspecified Fatigue, unspecified type Encounter for immunization Need for other specified prophylactic vaccination against single bacterial disease Medication monitoring encounter Encounter for therapeutic drug monitoring documented [facility] this [facility] Author Amy Moreno [facility] August 14, 2023 10:20pm Note Date/Time August 14, 2023 1 0:20pm [facility] Medical Records Department [address] [place] [address] H&P Exam - Hospitalist 08/14/238 MR#: [id number] Acct: [id number] Name: BRENDA LE Rep #:[id number] : 1965 57 From: Amy Moreno MD [...] Tobacco use, Obesity who presents to the [facility] ED on 08/14/23with history of 3 to 4 days of upper respiratory type symptoms including nasal congestion, rhinorrhea in addition to fever, chills, body aches as well as not markedly productive cough with wheezing not improving with worsening dyspnea sensation prompting eventual senior care transition to the ED for evaluation. Patient notes Tmax at her senior care 102. She is unsure if there have been other sick contacts at the senior care. Work-up in the ED included 97.4, heart [...] as patient complaining of significant nasal congestion. [facility] Medical History (Updated 08/14/23 @ 22:16 by [...] Dr. Amy Moreno MD) housing: other details: shelter. Smoking Status: Former smoker how long ago [...] (Auto) 79.4 H, Lymph % (Auto) 12.3 L,Garland % (Auto) 7.5, Eos % (Auto) 0.0, [...] Tobacco use, Obesity who presents to the [facility] ED on 08/14/23with history of 3 to 4 days of upper respiratory type symptoms including nasal congestion, rhinorrhea in addition to fever, chills, body aches as well as not markedly productive cough with wheezing not improving with worsening dyspnea sensation prompting eventual senior care transition to the ED for evaluation. #1. [...] Full code. Charges/Coding Visit Charges Inpatient E&M: 65436 Init Hosp L3 08/14/232219 <Electronically signed by Amy Moreno MD> Cosigner Signature (if applicable): CC: Dr. Amy Moreno MD; Dr. Aleksandar Jones MD~ Signed [facility] Work Phone: Hospital Discharge instructions Additional Instructions You tested positive for COVID-19 here in the emergency department. Start the steroid that was sent to your pharmacy tomorrow as you were given a dose here today already. Use Zofran as needed for nausea. Ensure adequate hydration. Return with worsening symptoms or any concerns. Follow-up with your doctor in outpatient setting.[facility] Work Phone: Reason for referral (narrative)* Diagnostic Procedure Only (Routine) - Pending Review Specialty Diagnoses / Procedures Referred By Jenny cotter Referred To Contact [facility] Diagnoses Encounter for screening mammogram for breast cancer Procedures FRANNY SCREENING SCREENING MAMMOGRAPHY BI 2-VIEW BREAST INC CAD Aleksandar Jones MD [address] [place] [address] Imaging [address] [place] [address] Referral ID Status Reason Start Date Expiration Date Visits Requested Visits Authorized [id number] Pending Review Auto-Generat ed Referral 2 09/06/2023 1 1 [facility] for referral (narrative)* Diagnostic Procedure Only (Routine) - Pending Review Specialty Diagnoses / Procedures Referred By Jenny cotter Referred To Contact [facility]LECULAR & FUNCTIONAL IMAGING Diagnoses Chest pain, unspecified type Procedures NM CARDIAC PERF STRESS/PHARM MYOCARDIAL SPECT MULTIPLE STUDIES Radha Batista APRN.[employer]BLER [address] [place] [address] [facility] [address] [place] [address] Referral ID Status Reason Start Date Expiration Date Visits Requested Visits Authorized [id number] Pending Review Auto-Generat ed Referral 04/29/2023 05/28/2024 1 1 * Outpatient Procedure (Routine) - Closed Specialty Diagnoses / Procedures Referred By Jenny t Referred To Contact [facility] Diagnoses Chest pain, unspecified type Procedures ECG COMPLETE ECG ROUTINE ECG W/LEAST 12 LDS W/I&R Radha Batista APRN.CNP [address] [place] [address] [facility] [place] [address] [place] [address] Referral ID Status Reason Start Date Expiration Date V isits Requested Visits Authorized [id number] Closed Auto-Generate d Referral 04/29/2023 04/28/2024 1 1 [facility] for referral (narrative)* Diagnostic Procedure Only (Routine) - Pending Review Specialty Diagnoses / Procedures Referred By Jenny t Referred To Contact [facility] Diagnoses Encounter for screening mammogram for breast cancer Procedures FRANNY SCREENING SCREENING MAMMOGRAPHY BI 2-VIEW BREAST INC CAD Aleksandar Jones MD [address] [place] [address] [facility] [address] [place] [address] Referral ID Status Reason Start Date Expiration Date Visits Requested Visits Authorized [id number] Pending Review Auto-Generat ed Referral 07/16/2023 08/14/2024 1 1 [facility] for referral (narrative)* Diagnostic Procedure Only (Routine) - New Request Specialty Diagnoses / Procedures Referred By Jenny t Referred To Contact [facility] Diagnoses Encounter for screening mammogram for breast cancer Procedures FRANNY SCREENING W AUGUSTO SCREENING DIGITAL BREAST TOMOSYNTHESIS BI SCREENING MAMMOGRAPHY BI 2-VIEW BREAST INC CAD Robert, Aleksandar Jeffrey MD [address] [place] [address] [facility] [address] [place] [address] Referral ID Status Reason Start Date Expiration Date Visits Requested Visits Authorized [id number] New Request Auto-Generat ed Referral 06/23/2024 07/23/2025 1 1 [facility] for referral (narrative)* Outpatient Procedure (Routine) - New Request Specialty Diagnoses / Procedures Referred By Jenny cotter Referred To Contact [facility] [place] Diagnoses Primary hypertension Pure hypercholesterolemia SVT (supraventricular tachycardia) (HCC) Tachycardia Procedures ECG COMPLETE ECG ROUTINE ECG W/LEAST 12 LDS W/I&R Fuentes Renee MD [address], [address] [place] [address] [facility] [address] [address] Referral ID Status Reason Start Date Expiration Date Visits Requested Visits Authorized [id number] New Request Auto-Generat ed Referral 09/20/2024 09/20/2025 1 1 [facility] for referral (narrative)* Outpatient Procedure (Routine) - Authorized Specialty Diagnoses / Procedures Referred By Jenny cotter Referred To Contact [facility] [place] Diagnoses Weakness of both lower extremities Procedures PVR ANK PRESS ASHELY VAS LAB NON-INVAS PHYSIOLOGIC STD EXTREMITY ART 2 LEVEL Radha Batista, ADIEL.PAVITHRA [address] [place] [address] [facility] [address] [address] Referral ID Status Reason Start Date Expiration Date Visits Requested Visits Authorized [id number] Authorized Auto-Generat ed Referral 11/02/2024 11/02/2025 1 1 * Diagnostic Procedure Only (Routine) - Closed Specialty Diagnoses / Procedures Referred By Contac t Referred To Contact XR IMAGING Diagnoses Weakness of both lower extremities Procedures XR LUMBAR GENERAL 3V AP/LAT/L5-S1 RADEX SPINE LUMBOSACRAL 2/3 VIEWS Radha Batista APRN.[employer]SEMBLER [address] [place] [address] [place] [address] Referral ID Status Reason Start Date Expiration Date V isits Requested Visits Authorized [id number] Closed Auto-Generate d Referral 11/02/2024 12/02/2025 1 1 [facility] for referral (narrative)* Diagnostic Procedure Only (Routine) - Closed Specialty Diagnoses / Procedures Referred By Contac t Referred To Contact [facility] IMAGING Diagnoses Weakness of both lower extremities Procedures XR LUMBAR GENERAL 3V AP/LAT/L5-S1 RADEX SPINE LUMBOSACRAL 2/3 VIEWS Radha Batista APRN.[employer]SEMBLER [address] [place] [id number] [place] [address] Referral ID Status Reason Start Date Expiration Date V isits Requested Visits Authorized [id number] Closed Auto-Generate d Referral 11/02/2024 12/02/2025 1 1 [facility] for referral (narrative)No reason for referral information availableWMercy [facility] Work Phone: Reason for visit Narrative* Diagnostic Procedure Only (Routine) - Closed Specialty Diagnoses / Procedures Referred By Contac t Referred To Contact [facility]LECULAR [facility] FUNCTIONAL IMAGING Diagnoses Chest pain, unspecified type Procedures NM CARDIAC PERF STRESS/PHARM MYOCARDIAL SPECT MULTIPLE STUDIES Radha Batista APRN.[employer]ER [address] [place] [address] Molecular [facility] Functional Imaging [address] [place] [address] Referral ID Status Reason Start Date Expiration Date V isits Requested Visits Authorized [id number] Closed Auto-Generate d Referral 05/15/2023 10/12/2023 3 1 [facility] for visit Narrative* Diagnostic Procedure Only (Routine) - Closed Specialty Diagnoses / Procedures Referred By Contac t Referred To Contact XR IMAGING Diagnoses Weakness of both lower extremities Procedures XR LUMBAR GENERAL 3V AP/LAT/L5-S1 RADEX SPINE LUMBOSACRAL 2/3 VIEWS Radha Batista APRN.CNP [address] [place] [address] [place] [address] Referral ID Status Reason Start Date Expiration Date V isits Requested Visits Authorized [id number] Closed Auto-Generate d Referral 11/02/2024 12/02/2025 1 1 [facility] for visit Narrative* Diagnostic Procedure Only (Routine) - Closed Specialty Diagnoses / Procedures Referred By Rafaelaac t Referred To Contact [facility] Diagnoses Encounter for screening mammogram for breast cancer Procedures FRANNY SCREENING W AUGUSTO SCREENING DIGITAL BREAST TOMOSYNTHESIS BI SCREENING MAMMOGRAPHY BI 2-VIEW BREAST INC CAD Aleksandar Jones MD [address] [place] [address] Phone: tel: fax: [facility] [address] [place] [address] Referral ID Status Reason Start Date Expiration Date V isits Requested Visits Authorized [id number] Closed Auto-Generate d Referral 06/23/2024 07/23/2025 [address] 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 Advance Directive(s) 12/04/2016 3:21 PM Advance Directive(s) 01/11/2009 10:19 PM Advance Directive(s) 12/06/2008 4:00 PM Advance Directive Response Recorded Date/ Time Advance Directives No July 26, 2015 12:08pm Living Will No April 09, 2022 3:50pm Power of Live Out Nanny No April 09 3:50pm Advance Directive Response Recorded Date/ Time Advance Directives No July 26, 2015 12:08pm Living Will No June 05 3:59pm Power of Live Out Nanny No June 05 022 3:59pm Documents on File Type Date Recorded 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 Advance Directive(s) 01/11/2009 10:19 PM Advance Directive(s) 12/06/2008 4:00 PM Documents on File Type Date Recorded 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 anation Advance Directive(s) 01/11/2009 10:19 PM Advance Directive(s) 12/06/2008 4:00 PM Advance Directive Response Recorded Date/ Time Advance Directives No July 26, 2015 11:08am Living Will No June 05 2:59pm Power of Live Out Nanny No June 05 022 2:59pm Advance Directive Response Recorded Date/ Time Advance Directives No July 26, 2015 12:08pm Living Will No August 14 5:05pm Power of Live Out Nanny No August 14, 2023 5:05pm Advance Directive Response Recorded Date/ Time Name of Medical Power of Live Out Nanny Melony Shell August 15, 2023 12:13am Advance Directives No July 26, 2015 12:08pm Living Will No August 15 12:13am Power of Live Out Nanny Yes August 15, 2023 12:13am Advance Directive Response Recorded Date/ Time Name of Medical Power of Live Out Nanny Melony Shell August 14, 2023 11:13pm Advance Directives No July 26, 2015 11:08am Living Will No August 14 11:13pm Power of Live Out Nanny Yes August 14, 2023 11:13pm Advance Directive Response Recorded Date/ Time Name of Medical Power of Live Out Nanny Melony Willard August 14, 2023 11:13pm Advance Directives No July 26, 2015 11:08am Living Will No December 13, 2023 6:19pm Power of Live Out Nanny No December 12 6:19pm Advance Directive Response Recorded Date/ Time Advance Directives No July 26, 2015 12:08pm Living Will No December 13, 2023 7:19pm Power of Live Out Nanny No December 12 7:19pm Advance Directive Response Recorded Date/ Time Living Will No September 12 12:34am Power of Live Out Nanny No September 12, 2024 12:34am Living Will No October 13 5:23am Power of Live Out Nanny No October 13 5:23am Living Will No October 14 4:06pm Power of Live Out Nanny No October 14 4:06pm Living Will No December 13, 2023 7:19pm Power of Live Out Nanny No December 12 7:19pm Living Will No November 10 1:40am Power of Live Out Nanny No November 10, 2024 1:40am Living Will No November 13 2:33am Power of Live Out Nanny No November 13, 2024 2:33am Living Will No December 21, 2024 8:47am Power of Live Out Nanny No December 21 8:47am Advance Directives No July 26, 2015 12:08pm Advance Directive Response Recorded Date/ Time Living Will No September 12 12:34am Do you have a Healthcare Power of Live Out Nanny? No September 12, 2024 12:34am Living Will No October 13 5:23am Do you have a Healthcare Power of Live Out Nanny? No October 13, 2024 5:23am Living Will No October 14 4:06pm Do you have a Healthcare Power of Live Out Nanny? No October 14, 2024 4:06pm Living Will No December 11, 2024 5:48am Do you have a Healthcare Power of Live Out Nanny? No December 11, 2024 5:48am Living Will No November 10 1:40am Do you have a Healthcare Power of Live Out Nanny? No November 10, 2024 1:40am Living Will No November 13 2:33am Do you have a Healthcare Power of Live Out Nanny? No November 13, 2024 2:33am Living Will No December 21, 2024 8:47am Do you have a Healthcare Power of Live Out Nanny? No December 21, 2024 8:47am Advance Directives No July 26, 2015 12:08pm Advance Directive Response Recorded Date/ Time Living Will No December 11, 2024 5:48am Do you have a Healthcare Power of Live Out Nanny? No December 11, 2024 5:48am Living Will No January 10, 2025 10:11pm Do you have a Healthcare Power of Live Out Nanny? No January 10, 2025 10:11pm Living Will No November 13 2:33am Do you have a Healthcare Power of Live Out Nanny? No November 13, 2024 2:33am Living Will No December 21, 2024 8:47am Do you have a Healthcare Power of Live Out Nanny? No December 21, 2024 8:47am Advance Directives No July 26, 2015 12:08pm Advance Directive Response Recorded Date/ Time Living Will No January 10, 2025 10:11pm Do you have a Healthcare Power of Live Out Nanny? No January 10, 2025 10:11pm Advance Directives No July 26, 2015 12:08pm Advance Directive Response Recorded Date/ Time Advance [...] 6pm S/O February 02, 2025 2:1 7pm PRISON LAB WORK March 01, 2025 7:0 5am Chief Complaint Admit Date S/O February 02, 2025 2:1 7pm PRISON LAB WORK March 01, 2025 7:0 5am PRISON LAB WORK March 28, 2025 5: 00am PRISON LAB WORK April 11, 2025 10 :00am NICOTINE DEPENDENCE May 06, 2025 12:4 8pm Constipation May 10, 2025 12:2 4pm Reason for Visit Admit Date Constipation May 10, 2025 12:2 4pm Chief Complaint Admit Date S/O February 02, 2025 2:1 7pm PRISON LAB WORK March 01, 2025 7:0 5am PRISON LAB WORK March 28, 2025 5: 00am PRISON LAB WORK April 11, 2025 10 :00am PRISON LAB WORK April 26, 2025 7: 45am NICOTINE DEPENDENCE May 06, 2025 12:4 8pm Constipation May 10, 2025 12:2 4pm Reason for Visit Admit Date Abdominal pain May 10, 2025 12:2 4pm Nausea May 10, 2025 12:2 4pm Constipation May 10, 2025 12:2 4pm Chief Complaint Admit Date PRISON LAB WORK March 01, 2025 7:0 5am PRISON LAB WORK March 28, 2025 5: 00am PRISON LAB WORK April 11, 2025 10 :00am PRISON LAB WORK April 26, 2025 7: 45am NICOTINE DEPENDENCE May 06, 2025 12:4 8pm Constipation May 10, 2025 12:2 4pm PRISON LAB WORK May 24, 2025 5:00am Reason for Visit Admit Date Abdominal pain May 10, 2025 12:2 4pm Nausea May 10, 2025 12:2 4pm Constipation May 10, 2025 12:2 4pm Abdominal pain June 23, 2025 7:58am Dysphagia June 23, 2025 7:58am Nausea June 23, 2025 7:58am Chief Complaint Admit Date PRISON LAB WORK March 28, 2025 5: 00am PRISON LAB WORK April 11, 2025 10 :00am PRISON LAB WORK April 26, 2025 7: 45am NICOTINE DEPENDENCE May 06, 2025 12:4 8pm Constipation May 10, 2025 12:2 4pm PRISON LAB WORK May 24, 2025 5:00am PRISON LAB WORK June 21 5:00am Procedure F/U-Abdominal pain June 152024 2:48pm Reason for Visit Admit Date Abdominal pain May 10, 2025 12:2 4pm Nausea May 10, 2025 12:2 4pm Constipation May 10, 2025 12:2 4pm Abdominal pain June 23, 2025 7:58am Dysphagia June 23, 2025 7:58am Nausea June 23, 2025 7:58am Abdominal pain July 12, 2025 2:48pm Nausea July 12, 2025 2:48pm Reason for Referral Specialty Diagnoses / Procedures Referred By Jenny t Referred To Contact Podiatry Diagnoses Injury of toenail of right foot, initial encounter Procedures CONSULT TO PODIATRY OFFICE/OUTPATIENT [facility] 60-74 MINUTES Zaira Mancilla, EDGE BANDING OFF BEARER.[employer] TURBINE ASSEMBLER [address] [place] [address] Referral ID Status Reason Start Date Expiration Date Visits Requested Visits Authorized [id number] Authorized PCP Requested Referral 07/05/2022 07/05/2023 1 1 Specialty Diagnoses / Procedures Referred By Contac t Referred To Contact [facility] Diagnoses Leg weakness, bilateral Procedures CONSULT TO PHYSICAL THERAPY PHYSICAL THERAPY EVALUATION HIGH COMPLEX 45 MINS Radha Batista, EDGE BANDING OFF BEARER.STE[employer] AND G[employer] TURBINE ASSEMBLER [address] [place] [address] [facility] [place] [address] [place] [address] Referral ID Status Reason Start Date Expiration Date Visits Requested Visits Authorized [id number] Pending Review PCP Requested Referral Auto-Generate d Referral 01/13/2024 01/12/2025 99 99 Additional Source Comments INFORMATION SOURCE (unrecogn ized section and content) DATE CREATED AUTHOR 04/03/2018 [facility] DATE CREATED AUTHOR AUTHOR'S ORGANIZ ATION 07/21/2021 [facility] DATE CREATED AUTHOR AUTHOR'S ORGANIZ ATION 06/29/2025 [facility] DATE CREATED AUTHOR AUTHOR'S ORGANIZ ATION 08/14/2025 [facility] Goals (unrecognized section and content) Goals may [...] or prosecute any alcohol or drug abuse patient.[facility] the event this information is protected by the Federal Confidentiality of Alcohol and Drug Abuse Patient Records regulations: The Federal rules restrict any use of the information to criminally investigate or prosecute any alcohol or drug abuse patient.[facility] the event this information is protected by the Federal Confidentiality of Alcohol and Drug Abuse Patient Records regulations: The Federal rules restrict any use of the information to criminally investigate or prosecute any alcohol or drug abuse patient.[facility] the event this information is protected by the Federal Confidentiality of Alcohol and Drug Abuse Patient Records regulations: The Federal rules restrict any use of the information to criminally investigate or prosecute any alcohol or drug abuse patient.[facility] HospitalIn the event this information is protected by the Federal Confidentiality of Alcohol and Drug Abuse Patient Records regulations: The Federal rules restrict any use of the information to criminally investigate or prosecute any alcohol or drug abuse patient.[facility] HospitalIn the event this information is protected by the Federal Confidentiality of Alcohol and Drug Abuse Patient Records regulations: The Federal rules restrict any use of the information to criminally investigate or prosecute any alcohol or drug abuse patient.[facility] HospitalIn the event this information is protected by the Federal Confidentiality of Alcohol and Drug Abuse Patient Records regulations: The Federal rules restrict any use of the information to criminally investigate or prosecute any alcohol or drug abuse patient.[facility] HospitalIn the event this information is protected by the Federal Confidentiality of Alcohol and Drug Abuse Patient Records regulations: The Federal rules restrict any use of the information to criminally investigate or prosecute any alcohol or drug abuse patient.[facility] HospitalIn the event this information is protected by the Federal Confidentiality of Alcohol and Drug Abuse Patient Records regulations: The Federal rules restrict any use of the information to criminally investigate or prosecute any alcohol or drug abuse patient.[facility] Hospital[facility] the event this information is protected by the Federal Confidentiality of Alcohol and Drug Abuse Patient Records regulations: The Federal rules restrict any use of the information to criminally investigate or prosecute any alcohol or drug abuse patient.[facility] HospitalIn the event this information is protected by the Federal Confidentiality of Alcohol and Drug Abuse Patient Records regulations: The Federal rules restrict any use of the information to criminally investigate or prosecute any alcohol or drug abuse patient.[facility] HospitalIn the event this information is protected by the Federal Confidentiality of Alcohol and Drug Abuse Patient Records regulations: The Federal rules restrict any use of the information to criminally investigate or prosecute any alcohol or drug abuse patient.[facility] HospitalIn the event this information is protected by the Federal Confidentiality of Alcohol and Drug Abuse Patient Records regulations: The Federal rules restrict any use of the information to criminally investigate or prosecute any alcohol or drug abuse patient.[facility] HospitalIn the event this information is protected by the Federal Confidentiality of Alcohol and Drug Abuse Patient Records regulations: The Federal rules restrict any use of the information to criminally investigate or prosecute any alcohol or drug abuse patient.[facility] HospitalIn the event this information is protected by the Federal Confidentiality of Alcohol and Drug Abuse Patient Records regulations: The Federal rules restrict any use of the information to criminally investigate or prosecute any alcohol or drug abuse patient.[facility] HospitalIn the event this information is protected by the Federal Confidentiality of Alcohol and Drug Abuse Patient Records regulations: The Federal rules restrict any use of the information to criminally investigate or prosecute any alcohol or drug abuse patient.[facility] HospitalIn the event this information is protected by the Federal Confidentiality of Alcohol and Drug Abuse Patient Records regulations: The Federal rules restrict any use of the information to criminally investigate or prosecute any alcohol or drug abuse patient.[facility] HospitalIn the event this information is protected by the Federal Confidentiality of Alcohol and Drug Abuse Patient Records regulations: The Federal rules restrict any use of the information to criminally investigate or prosecute any alcohol or drug abuse patient.[facility] HospitalIn the event this information is protected by the Federal Confidentiality of Alcohol and Drug Abuse Patient Records regulations: The Federal rules restrict any use of the information to criminally investigate or prosecute any alcohol or drug abuse patient.[facility] HospitalIn the event this information is protected by the Federal Confidentiality of Alcohol and Drug Abuse Patient Records regulations: The Federal rules restrict any use of the information to criminally investigate or prosecute any alcohol or drug abuse patient.[facility] HospitalIn the event this information is protected by the Federal Confidentiality of Alcohol and Drug Abuse Patient Records regulations: The Federal rules restrict any use of the information to criminally investigate or prosecute any alcohol or drug abuse patient.[facility] HospitalIn the event this information is protected by the Federal Confidentiality of Alcohol and Drug Abuse Patient Records regulations: The Federal rules restrict any use of the information to criminally investigate or prosecute any alcohol or drug abuse patient.[facility] HospitalIn the event this information is protected by the Federal Confidentiality of Alcohol and Drug Abuse Patient Records regulations: The Federal rules restrict any use of the information to criminally investigate or prosecute any alcohol or drug abuse patient.[facility] HospitalIn the event this information is protected by the Federal Confidentiality of Alcohol and Drug Abuse Patient Records regulations: The Federal rules restrict any use of the information to criminally investigate or prosecute any alcohol or drug abuse patient.[facility] HospitalIn the event this information is protected by the Federal Confidentiality of Alcohol and Drug Abuse Patient Records regulations: The Federal rules restrict any use of the information to criminally investigate or prosecute any alcohol or drug abuse patient.[facility] HospitalIn the event this information is protected by the Federal Confidentiality of Alcohol and Drug Abuse Patient Records regulations: The Federal rules restrict any use of the information to criminally investigate or prosecute any alcohol or drug abuse patient.[facility] HospitalIn the event this information is protected by the Federal Confidentiality of Alcohol and Drug Abuse Patient Records regulations: The Federal rules restrict any use of the information to criminally investigate or prosecute any alcohol or drug abuse patient.[facility] HospitalIn the event this information is protected by the Federal Confidentiality of Alcohol and Drug Abuse Patient Records regulations: The Federal rules restrict any use of the information to criminally investigate or prosecute any alcohol or drug abuse patient.[facility] HospitalIn the event this information is protected by the Federal Confidentiality of Alcohol and Drug Abuse Patient Records regulations: The Federal rules restrict any use of the information to criminally investigate or prosecute any alcohol or drug abuse patient.[facility] HospitalIn the event this information is protected by the Federal Confidentiality of Alcohol and Drug Abuse Patient Records regulations: The Federal rules restrict any use of the information to criminally investigate or prosecute any alcohol or drug abuse patient.[facility] HospitalIn the event this information is protected by the Federal Confidentiality of Alcohol and Drug Abuse Patient Records regulations: The Federal rules restrict any use of the information to criminally investigate or prosecute any alcohol or drug abuse patient.[facility] HospitalIn the event this information is protected by the Federal Confidentiality of Alcohol and Drug Abuse Patient Records regulations: The Federal rules restrict any use of the information to criminally investigate or prosecute any alcohol or drug abuse patient.[facility] HospitalIn the event this information is protected by the Federal Confidentiality of Alcohol and Drug Abuse Patient Records regulations: The Federal rules restrict any use of the information to criminally investigate or prosecute any alcohol or drug abuse patient.[facility] HospitalIn the event this information is protected by the Federal Confidentiality of Alcohol and Drug Abuse Patient Records regulations: The Federal rules restrict any use of the information to criminally investigate or prosecute any alcohol or drug abuse patient.[facility] HospitalIn the event this information is protected by the Federal Confidentiality of Alcohol and Drug Abuse Patient Records regulations: The Federal rules restrict any use of the information to criminally investigate or prosecute any alcohol or drug abuse patient.[facility] HospitalIn the event this information is protected by the Federal Confidentiality of Alcohol and Drug Abuse Patient Records regulations: The Federal rules restrict any use of the information to criminally investigate or prosecute any alcohol or drug abuse patient.[facility] HospitalIn the event this information is protected by the Federal Confidentiality of Alcohol and Drug Abuse Patient Records regulations: The Federal rules restrict any use of the information to criminally investigate or prosecute any alcohol or drug abuse patient.[facility] HospitalIn the event this information is protected by the Federal Confidentiality of Alcohol and Drug Abuse Patient Records regulations: The Federal rules restrict any use of the information to criminally investigate or prosecute any alcohol or drug abuse patient.[facility] HospitalIn the event this information is protected by the Federal Confidentiality of Alcohol and Drug Abuse Patient Records regulations: The Federal rules restrict any use of the information to criminally investigate or prosecute any alcohol or drug abuse patient.[facility] HospitalIn the event this information is protected by the Federal Confidentiality of Alcohol and Drug Abuse Patient Records regulations: The Federal rules restrict any use of the information to criminally investigate or prosecute any alcohol or drug abuse patient.[facility] HospitalIn the event this information is protected by the Federal Confidentiality of Alcohol and Drug Abuse Patient Records regulations: The Federal rules restrict any use of the information to criminally investigate or prosecute any alcohol or drug abuse patient.[facility] HospitalIn the event this information is protected by the Federal Confidentiality of Alcohol and Drug Abuse Patient Records regulations: The Federal rules restrict any use of the information to criminally investigate or prosecute any alcohol or drug abuse patient.[facility] HospitalIn the event this information is protected by the Federal Confidentiality of Alcohol and Drug Abuse Patient Records regulations: The Federal rules restrict any use of the information to criminally investigate or prosecute any alcohol or drug abuse patient.[facility] HospitalIn the event this information is protected by the Federal Confidentiality of Alcohol and Drug Abuse Patient Records regulations: The Federal rules restrict any use of the information to criminally investigate or prosecute any alcohol or drug abuse patient.[facility] HospitalIn the event this information is protected by the Federal Confidentiality of Alcohol and Drug Abuse Patient Records regulations: The Federal rules restrict any use of the information to criminally investigate or prosecute any alcohol or drug abuse patient.[facility] HospitalIn the event this information is protected by the Federal Confidentiality of Alcohol and Drug Abuse Patient Records regulations: The Federal rules restrict any use of the information to criminally investigate or prosecute any alcohol or drug abuse patient.[facility] HospitalIn the event this information is protected by the Federal Confidentiality of Alcohol and Drug Abuse Patient Records regulations: The Federal rules restrict any use of the information to criminally investigate or prosecute any alcohol or drug abuse patient.[facility] HospitalIn the event this information is protected by the Federal Confidentiality of Alcohol and Drug Abuse Patient Records regulations: The Federal rules restrict any use of the information to criminally investigate or prosecute any alcohol or drug abuse patient.[facility] HospitalIn the event this information is protected by the Federal Confidentiality of Alcohol and Drug Abuse Patient Records regulations: The Federal rules restrict any use of the information to criminally investigate or prosecute any alcohol or drug abuse patient.[facility] HospitalIn the event this information is protected by the Federal Confidentiality of Alcohol and Drug Abuse Patient Records regulations: The Federal rules restrict any use of the information to criminally investigate or prosecute any alcohol or drug abuse patient.[facility] HospitalIn the event this information is protected by the Federal Confidentiality of Alcohol and Drug Abuse Patient Records regulations: The Federal rules restrict any use of the information to criminally investigate or prosecute any alcohol or drug abuse patient.[facility] HospitalIn the event this information is protected by the Federal Confidentiality of Alcohol and Drug Abuse Patient Records regulations: The Federal rules restrict any use of the information to criminally investigate or prosecute any alcohol or drug abuse patient.[facility] HospitalIn the event this information is protected by the Federal Confidentiality of Alcohol and Drug Abuse Patient Records regulations: The Federal rules restrict any use of the information to criminally investigate or prosecute any alcohol or drug abuse patient.[facility] HospitalIn the event this information is protected by the Federal Confidentiality of Alcohol and Drug Abuse Patient Records regulations: The Federal rules restrict any use of the information to criminally investigate or prosecute any alcohol or drug abuse patient.[facility] HospitalIn the event this information is protected by the Federal Confidentiality of Alcohol and Drug Abuse Patient Records regulations: The Federal rules restrict any use of the information to criminally investigate or prosecute any alcohol or drug abuse patient.[facility] HospitalIn the event this information is protected by the Federal Confidentiality of Alcohol and Drug Abuse Patient Records regulations: The Federal rules restrict any use of the information to criminally investigate or prosecute any alcohol or drug abuse patient.[facility] HospitalIn the event this information is protected by the Federal Confidentiality of Alcohol and Drug Abuse Patient Records regulations: The Federal rules restrict any use of the information to criminally investigate or prosecute any alcohol or drug abuse patient.[facility] HospitalIn the event this information is protected by the Federal Confidentiality of Alcohol and Drug Abuse Patient Records regulations: The Federal rules restrict any use of the information to criminally investigate or prosecute any alcohol or drug abuse patient.[facility] HospitalIn the event this information is protected by the Federal Confidentiality of Alcohol and Drug Abuse Patient Records regulations: The Federal rules restrict any use of the information to criminally investigate or prosecute any alcohol or drug abuse patient.[facility] HospitalIn the event this information is protected by the Federal Confidentiality of Alcohol and Drug Abuse Patient Records regulations: The Federal rules restrict any use of the information to criminally investigate or prosecute any alcohol or drug abuse patient.[facility] HospitalIn the event this information is protected by the Federal Confidentiality of Alcohol and Drug Abuse Patient Records regulations: The Federal rules restrict any use of the information to criminally investigate or prosecute any alcohol or drug abuse patient.[facility] HospitalIn the event this information is protected by the Federal Confidentiality of Alcohol and Drug Abuse Patient Records regulations: The Federal rules restrict any use of the information to criminally investigate or prosecute any alcohol or drug abuse patient.[facility] HospitalIn the event this information is protected by the Federal Confidentiality of Alcohol and Drug Abuse Patient Records regulations: The Federal rules restrict any use of the information to criminally investigate or prosecute any alcohol or drug abuse patient.[facility] HospitalIn the event this information is protected by the Federal Confidentiality of Alcohol and Drug Abuse Patient Records regulations: The Federal rules restrict any use of the information to criminally investigate or prosecute any alcohol or drug abuse patient.[facility] HospitalIn the event this information is protected by the Federal Confidentiality of Alcohol and Drug Abuse Patient Records regulations: The Federal rules restrict any use of the information to criminally investigate or prosecute any alcohol or drug abuse patient.[facility] HospitalIn the event this information is protected by the Federal Confidentiality of Alcohol and Drug Abuse Patient Records regulations: The Federal rules restrict any use of the information to criminally investigate or prosecute any alcohol or drug abuse patient.[facility] HospitalIn the event this information is protected by the Federal Confidentiality of Alcohol and Drug Abuse Patient Records regulations: The Federal rules restrict any use of the information to criminally investigate or prosecute any alcohol or drug abuse patient.[facility] HospitalIn the event this information is protected by the Federal Confidentiality of Alcohol and Drug Abuse Patient Records regulations: The Federal rules restrict any use of the information to criminally investigate or prosecute any alcohol or drug abuse patient.[facility] HospitalIn the event this information is protected by the Federal Confidentiality of Alcohol and Drug Abuse Patient Records regulations: The Federal rules restrict any use of the information to criminally investigate or prosecute any alcohol or drug abuse patient.[facility] HospitalIn the event this information is protected by the Federal Confidentiality of Alcohol and Drug Abuse Patient Records regulations: The Federal rules restrict any use of the information to criminally investigate or prosecute any alcohol or drug abuse patient.[facility] HospitalIn the event this information is protected by the Federal Confidentiality of Alcohol and Drug Abuse Patient Records regulations: The Federal rules restrict any use of the information to criminally investigate or prosecute any alcohol or drug abuse patient.[facility] HospitalIn the event this information is protected by the Federal Confidentiality of Alcohol and Drug Abuse Patient Records regulations: The Federal rules restrict any use of the information to criminally investigate or prosecute any alcohol or drug abuse patient.[facility] HospitalIn the event this information is protected by the Federal Confidentiality of Alcohol and Drug Abuse Patient Records regulations: The Federal rules restrict any use of the information to criminally investigate or prosecute any alcohol or drug abuse patient.[facility] HospitalIn the event this information is protected by the Federal Confidentiality of Alcohol and Drug Abuse Patient Records regulations: The Federal rules restrict any use of the information to criminally investigate or prosecute any alcohol or drug abuse patient.[facility] HospitalIn the event this information is protected by the Federal Confidentiality of Alcohol and Drug Abuse Patient Records regulations: The Federal rules restrict any use of the information to criminally investigate or prosecute any alcohol or drug abuse patient.[facility] HospitalIn the event this information is protected by the Federal Confidentiality of Alcohol and Drug Abuse Patient Records regulations: The Federal rules restrict any use of the information to criminally investigate or prosecute any alcohol or drug abuse patient.[facility] HospitalIn the event this information is protected by the Federal Confidentiality of Alcohol and Drug Abuse Patient Records regulations: The Federal rules restrict any use of the information to criminally investigate or prosecute any alcohol or drug abuse patient.[facility] HospitalIn the event this information is protected by the Federal Confidentiality of Alcohol and Drug Abuse Patient Records regulations: The Federal rules restrict any use of the information to criminally investigate or prosecute any alcohol or drug abuse patient.[facility] HospitalIn the event this information is protected by the Federal Confidentiality of Alcohol and Drug Abuse Patient Records regulations: The Federal rules restrict any use of the information to criminally investigate or prosecute any alcohol or drug abuse patient.[facility] HospitalIn the event this information is protected by the Federal Confidentiality of Alcohol and Drug Abuse Patient Records regulations: The Federal rules restrict any use of the information to criminally investigate or prosecute any alcohol or drug abuse patient.[facility] HospitalIn the event this information is protected by the Federal Confidentiality of Alcohol and Drug Abuse Patient Records regulations: The Federal rules restrict any use of the information to criminally investigate or prosecute any alcohol or drug abuse patient.[facility] HospitalIn the event this information is protected by the Federal Confidentiality of Alcohol and Drug Abuse Patient Records regulations: The Federal rules restrict any use of the information to criminally investigate or prosecute any alcohol or drug abuse patient.[facility] HospitalIn the event this information is protected by the Federal Confidentiality of Alcohol and Drug Abuse Patient Records regulations: The Federal rules restrict any use of the information to criminally investigate or prosecute any alcohol or drug abuse patient.[facility] HospitalIn the event this information is protected by the Federal Confidentiality of Alcohol and Drug Abuse Patient Records regulations: The Federal rules restrict any use of the information to criminally investigate or prosecute any alcohol or drug abuse patient.[facility] HospitalIn the event this information is protected by the Federal Confidentiality of Alcohol and Drug Abuse Patient Records regulations: The Federal rules restrict any use of the information to criminally investigate or prosecute any alcohol or drug abuse patient.[facility] HospitalIn the event this information is protected by the Federal Confidentiality of Alcohol and Drug Abuse Patient Records regulations: The Federal rules restrict any use of the information to criminally investigate or prosecute any alcohol or drug abuse patient.[facility] HospitalIn the event this information is protected by the Federal Confidentiality of Alcohol and Drug Abuse Patient Records regulations: The Federal rules restrict any use of the information to criminally investigate or prosecute any alcohol or drug abuse patient.[facility] HospitalIn the event this information is protected by the Federal Confidentiality of Alcohol and Drug Abuse Patient Records regulations: The Federal rules restrict any use of the information to criminally investigate or prosecute any alcohol or drug abuse patient.[facility] HospitalIn the event this information is protected by the Federal Confidentiality of Alcohol and Drug Abuse Patient Records regulations: The Federal rules restrict any use of the information to criminally investigate or prosecute any alcohol or drug abuse patient.[facility] HospitalIn the event this information is protected by the Federal Confidentiality of Alcohol and Drug Abuse Patient Records regulations: The Federal rules restrict any use of the information to criminally investigate or prosecute any alcohol or drug abuse patient.[facility] HospitalIn the event this information is protected by the Federal Confidentiality of Alcohol and Drug Abuse Patient Records regulations: The Federal rules restrict any use of the information to criminally investigate or prosecute any alcohol or drug abuse patient.[facility] HospitalIn the event this information is protected by the Federal Confidentiality of Alcohol and Drug Abuse Patient Records regulations: The Federal rules restrict any use of the information to criminally investigate or prosecute any alcohol or drug abuse patient.[facility] HospitalIn the event this information is protected by the Federal Confidentiality of Alcohol and Drug Abuse Patient Records regulations: The Federal rules restrict any use of the information to criminally investigate or prosecute any alcohol or drug abuse patient.[facility] HospitalIn the event this information is protected by the Federal Confidentiality of Alcohol and Drug Abuse Patient Records regulations: The Federal rules restrict any use of the information to criminally investigate or prosecute any alcohol or drug abuse patient.[facility] HospitalIn the event this information is protected by the Federal Confidentiality of Alcohol and Drug Abuse Patient Records regulations: The Federal rules restrict any use of the information to criminally investigate or prosecute any alcohol or drug abuse patient.[facility] HospitalIn the event this information is protected by the Federal Confidentiality of Alcohol and Drug Abuse Patient Records regulations: The Federal rules restrict any use of the information to criminally investigate or prosecute any alcohol or drug abuse patient.[facility] HospitalIn the event this information is protected by the Federal Confidentiality of Alcohol and Drug Abuse Patient Records regulations: The Federal rules restrict any use of the information to criminally investigate or prosecute any alcohol or drug abuse patient.[facility] HospitalIn the event this information is protected by the Federal Confidentiality of Alcohol and Drug Abuse Patient Records regulations: The Federal rules restrict any use of the information to criminally investigate or prosecute any alcohol or drug abuse patient.[facility] HospitalIn the event this information is protected by the Federal Confidentiality of Alcohol and Drug Abuse Patient Records regulations: The Federal rules restrict any use of the information to criminally investigate or prosecute any alcohol or drug abuse patient.[facility] HospitalIn the event this information is protected by the Federal Confidentiality of Alcohol and Drug Abuse Patient Records regulations: The Federal rules restrict any use of the information to criminally investigate or prosecute any alcohol or drug abuse patient.[facility] HospitalIn the event this information is protected by the Federal Confidentiality of Alcohol and Drug Abuse Patient Records regulations: The Federal rules restrict any use of the information to criminally investigate or prosecute any alcohol or drug abuse patient.[facility] HospitalIn the event this information is protected by the Federal Confidentiality of Alcohol and Drug Abuse Patient Records regulations: The Federal rules restrict any use of the information to criminally investigate or prosecute any alcohol or drug abuse patient.[facility] HospitalIn the event this information is protected by the Federal Confidentiality of Alcohol and Drug Abuse Patient Records regulations: The Federal rules restrict any use of the information to criminally investigate or prosecute any alcohol or drug abuse patient.[facility] HospitalIn the event this information is protected by the Federal Confidentiality of Alcohol and Drug Abuse Patient Records regulations: The Federal rules restrict any use of the information to criminally investigate or prosecute any alcohol or drug abuse patient.[facility] HospitalIn the event this information is protected by the Federal Confidentiality of Alcohol and Drug Abuse Patient Records regulations: The Federal rules restrict any use of the information to criminally investigate or prosecute any alcohol or drug abuse patient.[facility] HospitalIn the event this information is protected by the Federal Confidentiality of Alcohol and Drug Abuse Patient Records regulations: The Federal rules restrict any use of the information to criminally investigate or prosecute any alcohol or drug abuse patient.[facility] HospitalIn the event this information is protected by the Federal Confidentiality of Alcohol and Drug Abuse Patient Records regulations: The Federal rules restrict any use of the information to criminally investigate or prosecute any alcohol or drug abuse patient.[facility] HospitalIn the event this information is protected by the Federal Confidentiality of Alcohol and Drug Abuse Patient Records regulations: The Federal rules restrict any use of the information to criminally investigate or prosecute any alcohol or drug abuse patient.[facility] HospitalIn the event this information is protected by the Federal Confidentiality of Alcohol and Drug Abuse Patient Records regulations: The Federal rules restrict any use of the information to criminally investigate or prosecute any alcohol or drug abuse patient.[facility] HospitalIn the event this information is protected by the Federal Confidentiality of Alcohol and Drug Abuse Patient Records regulations: The Federal rules restrict any use of the information to criminally investigate or prosecute any alcohol or drug abuse patient.[facility] HospitalIn the event this information is protected by the Federal Confidentiality of Alcohol and Drug Abuse Patient Records regulations: The Federal rules restrict any use of the information to criminally investigate or prosecute any alcohol or drug abuse patient.[facility] HospitalIn the event this information is protected by the Federal Confidentiality of Alcohol and Drug Abuse Patient Records regulations: The Federal rules restrict any use of the information to criminally investigate or prosecute any alcohol or drug abuse patient.[facility] HospitalIn the event this information is protected by the Federal Confidentiality of Alcohol and Drug Abuse Patient Records regulations: The Federal rules restrict any use of the information to criminally investigate or prosecute any alcohol or drug abuse patient.[facility] HospitalIn the event this information is protected by the Federal Confidentiality of Alcohol and Drug Abuse Patient Records regulations: The Federal rules restrict any use of the information to criminally investigate or prosecute any alcohol or drug abuse patient.[facility] HospitalIn the event this information is protected by the Federal Confidentiality of Alcohol and Drug Abuse Patient Records regulations: The Federal rules restrict any use of the information to criminally investigate or prosecute any alcohol or drug abuse patient.[facility] HospitalIn the event this information is protected by the Federal Confidentiality of Alcohol and Drug Abuse Patient Records regulations: The Federal rules restrict any use of the information to criminally investigate or prosecute any alcohol or drug abuse patient.[facility] HospitalIn the event this information is protected by the Federal Confidentiality of Alcohol and Drug Abuse Patient Records regulations: The Federal rules restrict any use of the information to criminally investigate or prosecute any alcohol or drug abuse patient.[facility] HospitalIn the event this information is protected by the Federal Confidentiality of Alcohol and Drug Abuse Patient Records regulations: The Federal rules restrict any use of the information to criminally investigate or prosecute any alcohol or drug abuse patient.[facility] HospitalIn the event this information is protected by the Federal Confidentiality of Alcohol and Drug Abuse Patient Records regulations: The Federal rules restrict any use of the information to criminally investigate or prosecute any alcohol or drug abuse patient.[facility] HospitalIn the event this information is protected by the Federal Confidentiality of Alcohol and Drug Abuse Patient Records regulations: The Federal rules restrict any use of the information to criminally investigate or prosecute any alcohol or drug abuse patient.[facility] HospitalIn the event this information is protected by the Federal Confidentiality of Alcohol and Drug Abuse Patient Records regulations: The Federal rules restrict any use of the information to criminally investigate or prosecute any alcohol or drug abuse patient.[facility] HospitalIn the event this information is protected by the Federal Confidentiality of Alcohol and Drug Abuse Patient Records regulations: The Federal rules restrict any use of the information to criminally investigate or prosecute any alcohol or drug abuse patient.[facility] HospitalIn the event this information is protected by the Federal Confidentiality of Alcohol and Drug Abuse Patient Records regulations: The Federal rules restrict any use of the information to criminally investigate or prosecute any alcohol or drug abuse patient.[facility] HospitalIn the event this information is protected by the Federal Confidentiality of Alcohol and Drug Abuse Patient Records regulations: The Federal rules restrict any use of the information to criminally investigate or prosecute any alcohol or drug abuse patient.[facility] HospitalIn the event this information is protected by the Federal Confidentiality of Alcohol and Drug Abuse Patient Records regulations: The Federal rules restrict any use of the information to criminally investigate or prosecute any alcohol or drug abuse patient.[facility] HospitalIn the event this information is protected by the Federal Confidentiality of Alcohol and Drug Abuse Patient Records regulations: The Federal rules restrict any use of the information to criminally investigate or prosecute any alcohol or drug abuse patient.[facility] HospitalIn the event this information is protected by the Federal Confidentiality of Alcohol and Drug Abuse Patient Records regulations: The Federal rules restrict any use of the information to criminally investigate or prosecute any alcohol or drug abuse patient.[facility] HospitalIn the event this information is protected by the Federal Confidentiality of Alcohol and Drug Abuse Patient Records regulations: The Federal rules restrict any use of the information to criminally investigate or prosecute any alcohol or drug abuse patient.[facility] HospitalIn the event this information is protected by the Federal Confidentiality of Alcohol and Drug Abuse Patient Records regulations: The Federal rules restrict any use of the information to criminally investigate or prosecute any alcohol or drug abuse patient.[facility] HospitalIn the event this information is protected by the Federal Confidentiality of Alcohol and Drug Abuse Patient Records regulations: The Federal rules restrict any use of the information to criminally investigate or prosecute any alcohol or drug abuse patient.[facility] HospitalIn the event this information is protected by the Federal Confidentiality of Alcohol and Drug Abuse Patient Records regulations: The Federal rules restrict any use of the information to criminally investigate or prosecute any alcohol or drug abuse patient.[facility] HospitalIn the event this information is protected by the Federal Confidentiality of Alcohol and Drug Abuse Patient Records regulations: The Federal rules restrict any use of the information to criminally investigate or prosecute any alcohol or drug abuse patient.[facility] HospitalIn the event this information is protected by the Federal Confidentiality of Alcohol and Drug Abuse Patient Records regulations: The Federal rules restrict any use of the information to criminally investigate or prosecute any alcohol or drug abuse patient.[facility] HospitalIn the event this information is protected by the Federal Confidentiality of Alcohol and Drug Abuse Patient Records regulations: The Federal rules restrict any use of the information to criminally investigate or prosecute any alcohol or drug abuse patient.[facility] HospitalIn the event this information is protected by the Federal Confidentiality of Alcohol and Drug Abuse Patient Records regulations: The Federal rules restrict any use of the information to criminally investigate or prosecute any alcohol or drug abuse patient.[facility] HospitalIn the event this information is protected by the Federal Confidentiality of Alcohol and Drug Abuse Patient Records regulations: The Federal rules restrict any use of the information to criminally investigate or prosecute any alcohol or drug abuse patient.[facility] HospitalIn the event this information is protected by the Federal Confidentiality of Alcohol and Drug Abuse Patient Records regulations: The Federal rules restrict any use of the information to criminally investigate or prosecute any alcohol or drug abuse patient.[facility] HospitalIn the event this information is protected by the Federal Confidentiality of Alcohol and Drug Abuse Patient Records regulations: The Federal rules restrict any use of the information to criminally investigate or prosecute any alcohol or drug abuse patient.[facility] HospitalIn the event this information is protected by the Federal Confidentiality of Alcohol and Drug Abuse Patient Records regulations: The Federal rules restrict any use of the information to criminally investigate or prosecute any alcohol or drug abuse patient.[facility] HospitalIn the event this information is protected by the Federal Confidentiality of Alcohol and Drug Abuse Patient Records regulations: The Federal rules restrict any use of the information to criminally investigate or prosecute any alcohol or drug abuse patient.[facility] HospitalIn the event this information is protected by the Federal Confidentiality of Alcohol and Drug Abuse Patient Records regulations: The Federal rules restrict any use of the information to criminally investigate or prosecute any alcohol or drug abuse patient.[facility] HospitalIn the event this information is protected by the Federal Confidentiality of Alcohol and Drug Abuse Patient Records regulations: The Federal rules restrict any use of the information to criminally investigate or prosecute any alcohol or drug abuse patient.[facility] HospitalIn the event this information is protected by the Federal Confidentiality of Alcohol and Drug Abuse Patient Records regulations: The Federal rules restrict any use of the information to criminally investigate or prosecute any alcohol or drug abuse patient.[facility] HospitalIn the event this information is protected by the Federal Confidentiality of Alcohol and Drug Abuse Patient Records regulations: The Federal rules restrict any use of the information to criminally investigate or prosecute any alcohol or drug abuse patient.[facility] HospitalIn the event this information is protected by the Federal Confidentiality of Alcohol and Drug Abuse Patient Records regulations: The Federal rules restrict any use of the information to criminally investigate or prosecute any alcohol or drug abuse patient.[facility] HospitalIn the event this information is protected by the Federal Confidentiality of Alcohol and Drug Abuse Patient Records regulations: The Federal rules restrict any use of the information to criminally investigate or prosecute any alcohol or drug abuse patient.[facility] HospitalIn the event this information is protected by the Federal Confidentiality of Alcohol and Drug Abuse Patient Records regulations: The Federal rules restrict any use of the information to criminally investigate or prosecute any alcohol or drug abuse patient.[facility] HospitalIn the event this information is protected by the Federal Confidentiality of Alcohol and Drug Abuse Patient Records regulations: The Federal rules restrict any use of the information to criminally investigate or prosecute any alcohol or drug abuse patient.[facility] HospitalIn the event this information is protected by the Federal Confidentiality of Alcohol and Drug Abuse Patient Records regulations: The Federal rules restrict any use of the information to criminally investigate or prosecute any alcohol or drug abuse patient.[facility] HospitalIn the event this information is protected by the Federal Confidentiality of Alcohol and Drug Abuse Patient Records regulations: The Federal rules restrict any use of the information to criminally investigate or prosecute any alcohol or drug abuse patient.[facility] HospitalIn the event this information is protected by the Federal Confidentiality of Alcohol and Drug Abuse Patient Records regulations: The Federal rules restrict any use of the information to criminally investigate or prosecute any alcohol or drug abuse patient.[facility] HospitalIn the event this information is protected by the Federal Confidentiality of Alcohol and Drug Abuse Patient Records regulations: The Federal rules restrict any use of the information to criminally investigate or prosecute any alcohol or drug abuse patient.[facility] HospitalIn the event this information is protected by the Federal Confidentiality of Alcohol and Drug Abuse Patient Records regulations: The Federal rules restrict any use of the information to criminally investigate or prosecute any alcohol or drug abuse patient.[facility] HospitalIn the event this information is protected by the Federal Confidentiality of Alcohol and Drug Abuse Patient Records regulations: The Federal rules restrict any use of the information to criminally investigate or prosecute any alcohol or drug abuse patient.[facility] HospitalIn the event this information is protected by the Federal Confidentiality of Alcohol and Drug Abuse Patient Records regulations: The Federal rules restrict any use of the information to criminally investigate or prosecute any alcohol or drug abuse patient.[facility] HospitalIn the event this information is protected by the Federal Confidentiality of Alcohol and Drug Abuse Patient Records regulations: The Federal rules restrict any use of the information to criminally investigate or prosecute any alcohol or drug abuse patient.[facility] HospitalIn the event this information is protected by the Federal Confidentiality of Alcohol and Drug Abuse Patient Records regulations: The Federal rules restrict any use of the information to criminally investigate or prosecute any alcohol or drug abuse patient.[facility] HospitalIn the event this information is protected by the Federal Confidentiality of Alcohol and Drug Abuse Patient Records regulations: The Federal rules restrict any use of the information to criminally investigate or prosecute any alcohol or drug abuse patient.[facility] HospitalIn the event this information is protected by the Federal Confidentiality of Alcohol and Drug Abuse Patient Records regulations: The Federal rules restrict any use of the information to criminally investigate or prosecute any alcohol or drug abuse patient.[facility] HospitalIn the event this information is protected by the Federal Confidentiality of Alcohol and Drug Abuse Patient Records regulations: The Federal rules restrict any use of the information to criminally investigate or prosecute any alcohol or drug abuse patient.[facility] HospitalIn the event this information is protected by the Federal Confidentiality of Alcohol and Drug Abuse Patient Records regulations: The Federal rules restrict any use of the information to criminally investigate or prosecute any alcohol or drug abuse patient.[facility] HospitalIn the event this information is protected by the Federal Confidentiality of Alcohol and Drug Abuse Patient Records regulations: The Federal rules restrict any use of the information to criminally investigate or prosecute any alcohol or drug abuse patient.[facility] Reason for Visit (unrecogniz ed section and content) Reason Comments PT Discharge Specialty Diagnoses / Procedures Referred By Contac t Referred To Contact [facility] Diagnoses Leg weakness, bilateral Procedures CONSULT TO PHYSICAL THERAPY PHYSICAL THERAPY EVALUATION HIGH COMPLEX 45 MINS Radha Batista APRN.[employer] [address] [place] [address] [facility] [place] [address] [place] [address] Referral ID Status Reason Start Date Expiration Date Visits Requested Visits Authorized [id number] Authorized PCP Requested Referral Auto-Generate d Referral [...] STRESS/PHARM MYOCARDIAL SPECT MULTIPLE STUDIES Radha Batista APRN.[employer] [address] [place] [address] [facility] [address] [place] [address] Referral ID Status Reason Start Date Expiration Date V isits Requested Visits Authorized [id number] Closed Auto-Generate d Referral 05/15/2023 10/12/2023 3 [...] Refill Request 01/29/2024 Reason Comments Insurance Authorization Lantus solostar Reason Onset Date Comments Refill Request 02/24/2024 [...] Reason Comments Information Reason Comments took another senior care patient s medica tions Reason Comments Clinical [...] REAL TIME W/IMAGE LIMITED Aleksandar Jones MD [address] [place] [place] [address] Phone: tel: fax: [place] [phone] Referral ID Status Reason Start Date Expiration Date V isits Requested Visits Authorized [id number] Closed Auto-Generate d Referral 01/18/2025 02/03/2026 1 1 Reason Comments Forms Reason Onset Date Comments Refill Request 01/25/2025 Reason Onset Date Comments Refill Request 02/18/2025 Reason Comments Letter Reason Comments Follow Up 2 month follow up- p ludin went from senior care to assisted living at [facility] Reason Comments Statin Recommendation Reason Comments Cardiac Clearance Care Teams (unrecognized sec tion and content) Group Practice Pediatrician Relationship Specialty Start Date End Date Aleksandar Jones MD [address] [facility] [place], [place] [id number] PCP - General Family Practice 12/26/14 Koby Ramirez V [address] [place] [address] [place] [phone] Internal Medicine 07/22/18 Yolie Mars Other 05/30/14 Jail 12/18/17 [facility] 10/25/19 Group Practice Pediatrician Relationship Specialty Start Date End Date Aleksandar Jones MD [address] [facility] [place], [place] [id number] PCP - General Family Practice 12/26/14 Koby Ramirez V [address] [place] [address] [place] [phone] Internal Medicine 07/22/18 Yolie Mars Other 05/30/14 Jail 12/18/17 clark [facility]r DME 10/25/19 Group Practice Pediatrician Relationship Specialty Start Date End Date Aleksandar Jones MD [address] [facility] [place], [place] [id number] PCP - General Family Practice 12/26/14 Koby Ramirez V [address] [place] [address] [place] [phone] Internal Medicine 07/22/18 Yolie Mars Other 05/30/14 Jail 12/18/17 [place] [facility] 10/25/19 Group Practice Pediatrician Relationship Specialty Start Date End Date Aleksandar Jones MD [address] [facility] [place] [address] PCP - General Family Practice 12/26/14 Koby Ramirez V [address] [place] [address] Internal Medicine 07/22/18 Yolie Mars Other 05/30/14 Jail 12/18/17 [facility] 10/25/19 Group Practice Pediatrician Relationship Specialty Start Date End Date Aleksandar Jones MD [address] [place] [address] PCP - General Family Practice 12/26/14 Koby Ramriez V [address] [place] [address] [place] [address] Internal Medicine 07/22/18 Yolie Mars Other 05/30/14 Jail 12/18/17 [facility] 10/25/19 Group Practice Pediatrician Relationship Specialty Start Date End Date Aleksandar Jones MD [address] [place] [address] PCP - General Family Practice 12/26/14 Koby Ramirez V [address] [place] [address] Internal Medicine 07/22/18 Yolie Mars Other 05/30/14 Jail 12/18/17 [facility] [place] [facility] 10/25/19 Group Practice Pediatrician Relationship Specialty Start Date End Date Aleksandar Jones MD [address] [facility], [place] [address] PCP - General Family Practice 12/26/14 Koby Ramirez V [address] [place] [address] Internal Medicine 07/22/18 Yolie Mars Other 05/30/14 Jail 12/18/17 clark [facility]r DME 10/25/19 Group Practice Pediatrician Relationship Specialty Start Date End Date Aleksandar Jones MD [address] [facility] [place] [address] PCP - General Family Medicine 12/26/14 Koby Ramirez V [address] [place] [address] Internal Medicine 07/22/18 Yolie Mars Other 05/30/14 Jail 12/18/17 [facility] DME 10/25/19 Group Practice Pediatrician Relationship Specialty Start Date End Date Aleksandar Jones MD [address] [facility] [place] [address] PCP - General Family Medicine 12/26/14 Koby Ramirez V [address] [place] [address] Internal Medicine 07/22/18 Yolie Mars Other 05/30/14 Jail 12/18/17 [facility] DME 10/25/19 Group Practice Pediatrician Relationship Specialty Start Date End Date Aleksandar Jones MD [address] [place] [address] PCP - General Family Medicine 12/26/14 Koby Ramirez V [address] [place] [address] [place] [phone] Internal Medicine 07/22/18 Yolie Mars Other 05/30/14 Jail 12/18/17 [facility] DME 10/25/19 Group Practice Pediatrician Relationship Specialty Start Date End Date Aleksandar Jones MD [address] [place] [address] PCP - General Family Medicine 12/26/14 Koby Ramirez V [address] [place] [address] [place] [address] Internal Medicine 07/22/18 Yolie Mars Other 05/30/14 Jail 12/18/17 clark marr DME 10/25/19 Group Practice Pediatrician Relationship Specialty Start Date End Date Aleksandar Jones MD [address] [place] [address] PCP - General Family Medicine 12/26/14 Koby Ramirez V [address] [place] [address] [place] [address] Internal Medicine 07/22/18 Yolie Mars Other 05/30/14 Jail 12/18/17 clark marr DME 10/25/19 Group Practice Pediatrician Relationship Specialty Start Date End Date Aleksandar Jones MD [address] [place] [address] PCP - General Family Medicine 12/26/14 Koby Ramirez V [address] [place] [address] Internal Medicine 07/22/18 Yolie Mars Other 05/30/14 Jail 12/18/17 clark marr DME 10/25/19 Group Practice Pediatrician Relationship Specialty Start Date End Date Aleksandar Jones MD [address] [place] [address] PCP - General Family Medicine 12/26/14 Koby Ramirez V [address] [place] [address] Internal Medicine 07/22/18 Yolie Mars Other 05/30/14 Jail 12/18/17 clark marr DME 10/25/19 Group Practice Pediatrician Relationship Specialty Start Date End Date Aleksandar Jones MD [address] [place] [address] PCP - General Family Medicine 12/26/14 Koby Ramirez V [address] [place] [address] Internal Medicine 07/22/18 Yolie Mars Other 05/30/14 Jail 12/18/17 clark marr DME 10/25/19 Group Practice Pediatrician Relationship Specialty Start Date End Date Aleksandar Jones MD [address] [facility] [place] [address] PCP - General Family Medicine 12/26/14 Koby Ramirez V [address] [place] [address] Internal Medicine 07/22/18 Yolie Mars Other 05/30/14 Jail 12/18/17 clark [place] DME 10/25/19 Team Status: Active Member Role Status Dates Dr. Aleksandar Jones MD Family Provider Active Dr. Aleksandar Jones MD Primary Care Provider Active Team Status: Inactive Member Role Status Dates Dr. Aleksandar Jones MD Primary Care Provider, Family Pr ovider Active Dr. Lorraine Springer MD Attending Provider, [facility] [place] tang Active Group Practice Pediatrician Relationship Specialty Start Date End Date Aleksandar Jones MD [address] [facility] [place] [id number] PCP - General Family Medicine 12/26/14 Koby Ramirez V [address] [place] [address] Internal Medicine 07/22/18 Yolie Mars Other 05/30/14 Jail 12/18/17 clark [place] DME 10/25/19 Group Practice Pediatrician Relationship Specialty Start Date End Date Aleksandar Jones MD [address] [facility] [place], [place] [id number] PCP - General Family Medicine 12/26/14 Koby Ramirez V [address] [place] [address] Internal Medicine 07/22/18 Yolie Rodriguezi Other 05/30/14 Jail 12/18/17 [facility] D[facility] 10/25/19 Team Status: Inactive Member Role Status Dates Dr. Aleksandar Jones MD Primary Care Provider Active Dr. Koby Ramirez MD Attending Provider, Joan bryan Provider Active Group Practice Pediatrician Relationship Specialty Start Date End Date Aleksandar Jones MD [address] [place], [place] [id number] PCP - General Family Medicine 12/26/14 Koby Ramirez V [address] [place] [address] Internal Medicine 07/22/18 Yolie Mars Other 05/30/14 Jail 12/18/17 clark marr DME 10/25/19 Group Practice Pediatrician Relationship Specialty Start Date End Date Aleksandar Jones MD [address] [place], [place] [id number] PCP - General Family Medicine 12/26/14 Koby Ramirez V [address] [place] [address] Internal Medicine 07/22/18 Yolie Rodriguezi Other 05/30/14 Jail 12/18/17 clark marr DME 10/25/19 Group Practice Pediatrician Relationship Specialty Start Date End Date Aleksandar Jones MD [address] [place] [phone] PCP - General Family Medicine 12/26/14 Koby Ramirez V [address] [place] [address] Internal Medicine 07/22/18 Yolie Mars Other 05/30/14 Jail 12/18/17 [facility] 10/25/19 Group Practice Pediatrician Relationship Specialty Start Date End Date Aleksandar Jones MD [address] [place], [place] [id number] PCP - General Family Medicine 12/26/14 Koby Ramirez V [address] [place] [address] Internal Medicine 07/22/18 Yolie Mars Other 05/30/14 Jail 12/18/17 clark marr DME 10/25/19 Group Practice Pediatrician Relationship Specialty Start Date End Date Aleksandar Jones MD [address] [place] [place] [place] [address] PCP - General Family Medicine 12/26/14 Koby Ramirez V [address] [place] [address] Internal Medicine 07/22/18 Yolie Mars Other 05/30/14 Jail 12/18/17 [facility] D[facility] 10/25/19 Group Practice Pediatrician Relationship Specialty Start Date End Date Aleksandar Jones MD [address] [place] [address] PCP - General Family Medicine 12/26/14 Koby Ramirez V [address] [place] [address] Internal Medicine 07/22/18 Yolie Mars Other 05/30/14 Jail 12/18/17 clark marr DME 10/25/19 Group Practice Pediatrician Relationship Specialty Start Date End Date Aleksandar Jones MD [address] [facility] [place] [address] PCP - General Family Medicine 12/26/14 Koby Ramirez V [address] [place] [address] Internal Medicine 07/22/18 Yolie Mars Other 05/30/14 Jail 12/18/17 clark marr DME 10/25/19 Team Status: [...] Dr. Hesham Noguera MD Attending Provider Active Group Practice Pediatrician Relationship Specialty Start Date End Date Aleksandar Jones MD [address] [place] [address] PCP - General Family Medicine 12/26/14 Koby Ramirez V [address] [place] [address] Internal Medicine 07/22/18 Yolie Mars Other 05/30/14 Jail 12/18/17 [facility] 10/25/19 Group Practice Pediatrician Relationship Specialty Start Date End Date Aleksandar Jones MD [address] [place] [place] [address] PCP - General Family Medicine 12/26/14 Koby Ramirez V [address] [place] [address] Internal Medicine 07/22/18 Yolie Mars Other 05/30/14 Jail 12/18/17 [facility] 10/25/19 Group Practice Pediatrician Relationship Specialty Start Date End Date Aleksandar Jones MD [address] [place] [place] [address] PCP - General Family Medicine 12/26/14 Koby Ramirez V [address] [place] [address] Internal Medicine 07/22/18 Yolie Mars Other 05/30/14 Jail 12/18/17 clark marr DME 10/25/19 Group Practice Pediatrician Relationship Specialty Start Date End Date Aleksandar Jones MD [address] [facility], [place] [phone] PCP - General Family Medicine 12/26/14 Koby Ramirez V [address] [place] [address] Internal Medicine 07/22/18 Yolie Mars Other 05/30/14 Jail 12/18/17 lcark marr DME 10/25/19 Group Practice Pediatrician Relationship Specialty Start Date End Date Aleksandar Jones MD [address] [facility], [place] [phone] PCP - General Family Medicine 12/26/14 Koby Ramirez V [address] [place] [phone] Internal Medicine 07/22/18 Yolie Mars Other 05/30/14 Jail 12/18/17 clark marr DME 10/25/19 Team Status: [...] MD Attending Provider, Referring P kitty Active Group Practice Pediatrician Relationship Specialty Start Date End Date Aleksandar Jones MD [address] [facility] [place], [place] [address] PCP - General Family Medicine 12/26/14 Koby Ramirez V [address] [place] [address] Internal Medicine 07/22/18 Yolie Mars Other 05/30/14 Jail 12/18/17 clark marr DME 10/25/19 Team Status: Inactive Member Role Status Dates Dr. Aleksandar Jones MD Primary Care Provider Active Dr. Jey Quesada DO Emergency Provider Active Team Status: Inactive Member Role Status Dates Dr. Aleksandar Jones MD Primary Care Provider Active Dr. Jey Quesada , Attending Provider, Emergency Provider Active Group Practice Pediatrician Relationship Specialty Start Date End Date Aleksandar Jones MD [address] [facility] [place], [place] [address] PCP - General Family Medicine 12/26/14 Koby Ramirez V [address] [place] [place] [address] Internal Medicine 07/22/18 Yolie Mars Other 05/30/14 Jail 12/18/17 clark marr DME 10/25/19 Group Practice Pediatrician Relationship Specialty Start Date End Date Aleksandar Jones MD [address] [place] [place] [address] PCP - General Family Medicine 12/26/14 Koby Ramirez V [address] [place] [place] [address] Internal Medicine 07/22/18 Yolie Rodriguezi Other 05/30/14 Jail 12/18/17 [facility] 10/25/19 Group Practice Pediatrician Relationship Specialty Start Date End Date Aleksandar Jones MD [address] [place] [place] [address] PCP - General Family Medicine 12/26/14 Koby Ramirez V [address] [place] [phone] Internal Medicine 07/22/18 Yolie Mars Other 05/30/14 Jail 12/18/17 [facility] 10/25/19 Group Practice Pediatrician Relationship Specialty Start Date End Date Aleksandar Jones MD [address] [place] [place] [address] PCP - General Family Medicine 12/26/14 Koby Ramirez V [address] [place] [phone] Internal Medicine 07/22/18 Yolie Mars Other 05/30/14 Jail 12/18/17 [facility] 10/25/19 Group Practice Pediatrician Relationship Specialty Start Date End Date Aleksandar Jones MD [address] [place] [place] [address] PCP - General Family Medicine 12/26/14 Koby Ramirez V [address] [place] [address] Internal Medicine 07/22/18 Yolie Mars Other 05/30/14 Jail 12/18/17 [facility] 10/25/19 Group Practice Pediatrician Relationship Specialty Start Date End Date Aleksandar Jones MD [address] [place], [place] [address] PCP - General Family Medicine 12/26/14 Koby Ramirez V [address] [place] [address] Internal Medicine 07/22/18 Yolie Mars Other 05/30/14 Jail 12/18/17 [facility] 10/25/19 Group Practice Pediatrician Relationship Specialty Start Date End Date Aleksandar Jones MD [address] [place] [place] [address] PCP - General Family Medicine 12/26/14 Koby Ramirez V [address] [place] [address] Internal Medicine 07/22/18 Yolie Mars Other 05/30/14 Jail 12/18/17 [facility] 10/25/19 Group Practice Pediatrician Relationship Specialty Start Date End Date Aleksandar Jones MD [address] [place] [place] [address] PCP - General Family Medicine 12/26/14 Koby Ramirez V [address] [place] [address] Internal Medicine 07/22/18 Yolie Rodriguezi Other 05/30/14 Jail 12/18/17 [facility] 10/25/19 Group Practice Pediatrician Relationship Specialty Start Date End Date Aleksandar Jones MD [address] [place] [place] [address] PCP - General Family Medicine 12/26/14 Koby Ramirez V [address] [place] [address] Internal Medicine 07/22/18 Yolie Mars Other 05/30/14 Jail 12/18/17 clark justa DME 10/25/19 Group Practice Pediatrician Relationship Specialty Start Date End Date Aleksandar Jones MD [address] [place] [place] [place] [address] PCP - General Family Medicine 12/26/14 Koby Ramirez V [address] [place] [address] Internal Medicine 07/22/18 Yolie Mars Other 05/30/14 Jail 12/18/17 [facility] DME 10/25/19 Group Practice Pediatrician Relationship Specialty Start Date End Date Aleksandar Jones MD [address] [place] [place] [address] PCP - General Family Medicine 12/26/14 Koby Ramirez V [address] [place] [address] Internal Medicine 07/22/18 Yolie Mars Other 05/30/14 Jail 12/18/17 [facility] 10/25/19 Group Practice Pediatrician Relationship Specialty Start Date End Date Aleksandar Jones MD [address] [place] [place] [address] PCP - General Family Medicine 12/26/14 Koby Ramirez V [address] [place] [place] [address] Internal Medicine 07/22/18 Yolie Mars Other 05/30/14 Jail 12/18/17 [facility] 10/25/19 Group Practice Pediatrician Relationship Specialty Start Date End Date Aleksandar Jones MD [address] [place] [place] [address] PCP - General Family Medicine 12/26/14 Koby Ramirez V [address] [place] [place] [address] Internal Medicine 07/22/18 Yolie Mars Other 05/30/14 Jail 12/18/17 [facility] 10/25/19 Group Practice Pediatrician Relationship Specialty Start Date End Date Aleksandar Jones MD [address] [place] [address] [place] [address] PCP - General Family Medicine 12/26/14 Koby Ramirez V [address] [place] [address] [place] [address] Internal Medicine 07/22/18 Yolie Mars Other 05/30/14 Jail 12/18/17 clark marr DME 10/25/19 Group Practice Pediatrician Relationship Specialty Start Date End Date Aleksandar Jones MD [address] [place] [address] [place] [address] PCP - General Family Medicine 12/26/14 Koby Ramirez V [address] [place] [place] [address] Internal Medicine 07/22/18 Yolie Mars Other 05/30/14 Jail 12/18/17 clark justa DME 10/25/19 Group Practice Pediatrician Relationship Specialty Start Date End Date Aleksandar Jones MD [address] [place] [address] [place] [address] PCP - General Family Medicine 12/26/14 Koby Ramirez V [address] [place] [address] Internal Medicine 07/22/18 Yolie Mars Other 05/30/14 Jail 12/18/17 clark marr DME 10/25/19 Group Practice Pediatrician Relationship Specialty Start Date End Date Aleksandar Jones MD [address] [place], [place] [address] PCP - General Family Medicine 12/26/14 Koby Ramirez V [address] [place] [address] Internal Medicine 07/22/18 Yolie Mars Other 05/30/14 Jail 12/18/17 clark marr DME 10/25/19 Group Practice Pediatrician Relationship Specialty Start Date End Date Aleksandar Jones MD [address] [place], [place] [address] PCP - General Family Medicine 12/26/14 Koby Ramirez V [address] [place] [address] [place] [address] Internal Medicine 07/22/18 Yolie Mars Other 05/30/14 Jail 12/18/17 clark marr DME 10/25/19 Group Practice Pediatrician Relationship Specialty Start Date End Date Aleksandar Jones MD [address] [place] [address] [place] [address] PCP - General Family Medicine 12/26/14 Koby Ramirez V [address] [place] [address] [place] [address] Internal Medicine 07/22/18 Yolie Mars Other 05/30/14 Jail 12/18/17 [facility] D[facility] 10/25/19 Group Practice Pediatrician Relationship Specialty Start Date End Date Aleksandar Jones MD [address] [place], [place] [id number] PCP - General Family Medicine 12/26/14 Koby Ramirez V [address] [place] [address] Internal Medicine 07/22/18 Yolie Mars Other 05/30/14 Jail 12/18/17 clark justa DME 10/25/19 Group Practice Pediatrician Relationship Specialty Start Date End Date Aleksandar Jones MD [address] [place], [place] [address] PCP - General Family Medicine 12/26/14 Koby Ramirez V [address] [place] [address] Internal Medicine 07/22/18 Kaitlyn Sanders, [facility] [address] [place] [address] Pharmacist Pharmacy 08/31/20 10/17/21 Yolie Mars Other 05/30/14 Jail 12/18/17 clark stone DME 10/25/19 Group Practice Pediatrician Relationship Specialty Start Date End Date Aleksandar Jones MD [address] [place], [place] [address] PCP - General Family Medicine 12/26/14 Koby Ramirez V [address] [place] [place] [address] Internal Medicine 07/22/18 FrakesKaitlyn, [facility] [address] [place] [place] [address] Pharmacist Pharmacy 08/31/20 10/17/21 Yolie Mars Other 05/30/14 Jail 12/18/17 clark marr DME 10/25/19 Group Practice Pediatrician Relationship Specialty Start Date End Date Aleksandar Jones MD [address] [place], [place] [phone] PCP - General Family Medicine 12/26/14 Koby Ramirez V [address] [place] [address] [place] [address] Internal Medicine 07/22/18 Yolie Mars Other 05/30/14 Jail 12/18/17 clark marr DME 10/25/19 Group Practice Pediatrician Relationship Specialty Start Date End Date Aleksandar Jones MD [address] [place] [address] [place] [address] PCP - General Family Medicine 12/26/14 Koby Ramirez V [address] [place] [place] [address] Internal Medicine 07/22/18 Yolie Mars Other 05/30/14 Jail 12/18/17 clark marr DME 10/25/19 Group Practice Pediatrician Relationship Specialty Start Date End Date Aleksandar Jones MD [address] [place], [place] [address] PCP - General Family Medicine 12/26/14 Koby Ramirez V [address] [place] [place] [address] Internal Medicine 07/22/18 Yolie Mars Other 05/30/14 Jail 12/18/17 clark marr DME 10/25/19 Group Practice Pediatrician Relationship Specialty Start Date End Date Aleksandar Jones MD [address] [place] [place] [address] PCP - General Family Medicine 12/26/14 Koby Raimrez V [address] [place] [address] [place] [address] Internal Medicine 07/22/18 Radha Batista APRN.[employer]AM [employer]SEMBLER [address] [place] [place] [address] Filtration Supervisor Family Medicine 09/20/24 Shelia Salmon EDGE B[employer]ING OFF BEARER.[employer] G[employer]URBINE ASSEMBLER [address] [place] [address] [place] [address] Filtration Supervisor Family Medicine 09/20/24 Yolie Mars Other 05/30/14 Jail 12/18/17 clark marr DME 10/25/19 Group Practice Pediatrician Relationship Specialty Start Date End Date Aleksandar Jones MD [address] [place], [place] [address] PCP - General Family Medicine 12/26/14 Koby Ramirez V [address] [place] [address] Internal Medicine 07/22/18 Radha Batista APRN.STEAM AND G[employer] TURBINE ASSEMBLER [address] [place] [address] Filtration Supervisor Family Medicine 09/20/24 Shelia Salmon APRN.STE[employer] AND [employer] TURBINE ASSEMBLER [address] [place] [place] [address] Filtration Supervisor Family Medicine 09/20/24 Yolie Mars Other 05/30/14 Jail 12/18/17 clark [facility] 10/25/19 Group Practice Pediatrician Relationship Specialty Start Date End Date Aleksandar Jones MD [address] [place] [place] [address] PCP - General Family Medicine 12/26/14 Koby Ramirez V [address] [place] [address] Internal Medicine 07/22/18 Radha Batista APRN.STEAM AND G[employer] TURBINE ASSEMBLER [address] [place] [address] Filtration Supervisor Family Medicine 09/20/24 Shelia Salmon APRN.STEAM AND G[employer] TURBINE ASSEMBLER [address] [place] [place] [address] Filtration Supervisor Family Medicine 09/20/24 Yolie Mars Other 05/30/14 Jail 12/18/17 clark marr DME 10/25/19 Group Practice Pediatrician Relationship Specialty Start Date End Date Aleksandar Jones MD [address] [place] [place] [place] [address] PCP - General Family Medicine 12/26/14 Koby Ramirez V [address] [place] [address] Internal Medicine 07/22/18 Radha Batista APRN.[employer]UR[employer] ASSEMBLER [address] [place] [place] [address] Filtration Supervisor Family Medicine 09/20/24 Shelia Salmon APRN.STEAM AND [employer]UR[employer] ASSEMBLER [address] [place] [place] [address] Filtration Supervisor Family Medicine 09/20/24 Yolie Mars Other 05/30/14 Jail 12/18/17 clark marr DME 10/25/19 Group Practice Pediatrician Relationship Specialty Start Date End Date Aleksandar Jones MD [address] [place] [id number] PCP - General Family Medicine 12/26/14 Koby Ramirez V [address] [place] [place] [address] Internal Medicine 07/22/18 Radha Batista, ADIEL.[employer] ASSEMBLER [address] [place] [address] Filtration Supervisor Family Medicine 09/20/24 Shelia Salmon APRN.STEAM AND G[employer] TURBINE ASSEMBLER [address] [place] [place] [address] Filtration Supervisor Family Medicine 09/20/24 Yolie Mars Other 05/30/14 Jail 12/18/17 [facility] 10/25/19 Group Practice Pediatrician Relationship Specialty Start Date End Date Aleksandar Jones MD [address] [place] [place] [address] PCP - General Family Medicine 12/26/14 Koby Ramirez V [address] [place] [address] [place] [address] Internal Medicine 07/22/18 Radha Batista, ADIEL.[employer] G[employer]UR[employer] ASSEMBLER [address] [place] [place] [address] Filtration Supervisor Family Medicine 09/20/24 Shelia Salmon APRN.[employer] AND [employer]UR[employer]INE ASSEMBLER [address] [place] [place] [address] Filtration Supervisor Family Medicine 09/20/24 Yolie Mars Other 05/30/14 Jail 12/18/17 [facility] 10/25/19 Group Practice Pediatrician Relationship Specialty Start Date End Date Aleksandar Jones MD [address] [place] [place] [address] PCP - General Family Medicine 12/26/14 Koby Ramirez V [address] [place] [address] Internal Medicine 07/22/18 Radha Batista, ADIEL.[employer] AND [employer]UR[employer] ASSEMBLER [address] [place] [place] [address] Filtration Supervisor Family Medicine 09/20/24 Shelia Salmon APRN.STEAM AND [employer]URBINE ASSEMBLER [address] [place] [place] [address] Filtration Supervisor Family Medicine 09/20/24 Yolie Mars Other 05/30/14 Jail 12/18/17 [facility] 10/25/19 Group Practice Pediatrician Relationship Specialty Start Date End Date Aleksandar Jones MD [address] [place] [place] [address] PCP - General Family Medicine 12/26/14 Koby Ramirez V [address] [place] [phone] Internal Medicine 07/22/18 Radha Batista, [employer]ER.STEAM AND G[employer] TURBINE ASSEMBLER [address] [place] [place] [address] Filtration Supervisor Family Medicine 09/20/24 Shelia Salmon EDGE B[employer]ING OFF BEARER.STEAM AND GAS TURBINE ASSEMBLER [address] [place] [address] Filtration Supervisor Family Medicine 09/20/24 Yolie Mars Other 05/30/14 Jail 12/18/17 clark marr DME 10/25/19 Group Practice Pediatrician Relationship Specialty Start Date End Date Aleksandar Jones MD [address] [place], [place] [address] PCP - General Family Medicine 12/26/14 Koby Ramirez V [address] [place] [address] Internal Medicine 07/22/18 Radha Batista APRN.STE[employer] AND G[employer] TURBINE ASSEMBLER [address] [place] [address] Filtration Supervisor Family Medicine 09/20/24 Shelia Salmon EDGE B[employer]ING OFF BEARER.STEAM AND G[employer] TURBINE ASSEMBLER [address] [place] [place] [address] Filtration Supervisor Family Medicine 09/20/24 Yolie Mars Other 05/30/14 Jail 12/18/17 clark marr DME 10/25/19 Group Practice Pediatrician Relationship Specialty Start Date End Date Aleksandar Jones MD [address] [place] [place] [address] PCP - General Family Medicine 12/26/14 Koby Ramirez V [address] [place] [address] [place] [address] Internal Medicine 07/22/18 Radha Batista, ED[employer] BEARER.STEAM AND G[employer] TURBINE ASSEMBLER [address] [place] [place] [address] Filtration Supervisor Family Medicine 09/20/24 Shelia Salmon, ED[employer] B[employer]ING OFF BEARER.STEAM AND G[employer] TURBINE ASSEMBLER [address] [place] [place] [address] Filtration Supervisor Family Medicine 09/20/24 Yolie Mars Other 05/30/14 Jail 12/18/17 [facility] 10/25/19 Group Practice Pediatrician Relationship Specialty Start Date End Date Aleksandar Jones MD [address] [place] [address] PCP - General Family Medicine 12/26/14 Koby Ramirez V [address] [facility] [place] [address] Internal Medicine 07/22/18 Radha Batista, ED[employer] B[employer]ING OFF BEARER.STEAM AND GAS TURBINE ASSEMBLER [address] [place] [address] Filtration Supervisor Family Medicine 09/20/24 Shelia Salmon, ED[employer] B[employer]ING OFF BEARER.STEAM AND G[employer] TURBINE ASSEMBLER [address] [place] [address] Filtration Supervisor Family Medicine 09/20/24 Yolie Mars Other 05/30/14 Jail 12/18/17 [facility] 10/25/19 Group Practice Pediatrician Relationship Specialty Start Date End Date Aleksandar Jones MD [address] [place] [address] PCP - General Family Medicine 12/26/14 Koby Ramirez V [address] [place] [address] Internal Medicine 07/22/18 Radha Batista APRN.STEAM AND G[employer] TUR[employer]INE ASSEMBLER [address] [place] [address] Filtration Supervisor Family Medicine 09/20/24 Shelia Salmon APRN.[employer] AND G[employer] TURBINE ASSEMBLER [address] [place] [place] [address] Filtration Supervisor Family Medicine 09/20/24 Yolie Mars Other 05/30/14 Jail 12/18/17 [facility] 10/25/19 Group Practice Pediatrician Relationship Specialty Start Date End Date Aleksandar Jones MD [address] [place] [place] [address] PCP - General Family Medicine 12/26/14 Koby Ramirez V [address] [place] [address] Internal Medicine 07/22/18 Radha Batista APRN.STEAM AND G[employer] TURBINE ASSEMBLER [address] [place] [place] [address] Filtration Supervisor Family Medicine 09/20/24 Shelia Salmon APRN.STEAM AND [employer] [address] [place] [address] Filtration Supervisor Family Medicine 09/20/24 Yolie Mars Other 05/30/14 Jail 12/18/17 [facility] 10/25/19 Group Practice Pediatrician Relationship Specialty Start Date End Date Aleksandar Jones MD [address] [place], [place] [id number] PCP - General Family Medicine 12/26/14 Koby Ramirez V [address] [place] [phone] Internal Medicine 07/22/18 Radha Batista APRN.STEAM AND GAS TURBINE ASSEMBLER [address] [place] [address] Filtration Supervisor Family [facility] 09/20/24 Shelia Salmon APRN.STEAM AND G[employer]URBINE ASSEMBLER [address] [place] [address] Filtration Supervisor Family Medicine 09/20/24 YolieEstela Elliottarturo Other 05/30/14 Jail 12/18/17 [facility] 10/25/19 Group Practice Pediatrician Relationship Specialty Start Date End Date Aleksandar Jones MD [address] [place] [address] PCP - General Family Medicine 12/26/14 Koby Ramirez V [address] [place] [phone] Internal Medicine 07/22/18 Radha Batista APRN.STEAM AND G[employer]UR[employer]SEMBLER [address] [place] [address] Filtration Supervisor Family [facility] 09/20/24 Shelia Salmon APRN.STEAM AND G[employer] TURBINE ASSEMBLER [address] [place] [address] Filtration Supervisor Family Medicine 09/20/24 Yolie Mars Other 05/30/14 Jail 12/18/17 [facility] 10/25/19 Group Practice Pediatrician Relationship Specialty Start Date End Date Aleksandar Jones MD [address] [place] [address] PCP - General Family Medicine 12/26/14 Koby Ramirez V [address] [facility] [place] [phone] Internal Medicine 07/22/18 Radha Batista APRN.STEAM AND G[employer]URBINE ASSEMBLER [address] [place] [address] Filtration Supervisor Family Medicine 09/20/24 Shelia Salmon APRN.STEAM AND G[employer]URBINE ASSEMBLER [address] [place] [address] Filtration Supervisor Family Medicine 09/20/24 Yolie Mars Other 05/30/14 Jail 12/18/17 [facility] 10/25/19 Team Status: [...] 25, 2024 End: September 11, 2024 Shelia Suppan , FOUNDER AND CEO Primary Care Provider Active Start: August 25, [...] 16, 2024 End: September 16, 2024 Shelia Suppan , FOUNDER AND CEO Primary Care Provider Active Start: September 16, [...] 14, 2024 End: October 14, 2024 Shelia Suppan , FOUNDER AND CEO Primary Care Provider Active Start: October 14, 2024 End: October 14, 2024 Team Status: Inactive Member Role Status Dates Shelia Suppan , FOUNDER AND CEO Primary Care Provider Active Start: October 14, 2024 End: October 14, 2024 Dr. Tae Holland DO Attending Provider Active Start: October 14, 2024 End: October 14, 2024 Dr. Tae Holland DO Referring Provider Active Start: October 14, 2024 End: October 14, 2024 Dr. Tae Holland DO Emergency Provider Active Start: October 14, 2024 End: October 14, 2024 Team Status: Inactive Member Role Status Dates Shelia Suppan , FOUNDER AND CEO Primary Care Provider Active Start: November 09, 2024 End: November 12, 2024 Dr. Francisco Thompson DO Emergency Provider Active Start: November 09, 2024 End: November 12, 2024 Dr. Hesham Amato DO Admit Provider Active Start: November 09, 2024 End: November 12, 2024 Dr. Hesham Amato DO Other Provider Active Start: November 09, 2024 End: November 12, 2024 Dr. Ana Lilia Lebron DO Attending Provider Active Start: November 09, 2024 End: November 12, 2024 Team Status: Active Member Role Status Dates Shelia Salmon , FOUNDER AND CEO Primary Care Provider Active Start: November 10, 2024 Dr. Francisco Thompson , Emergency Provider Active Start: November 10, 2024 Dr. Hesham Amato , DO Admit Provider Active Start: November 10, 2024 Dr. Hesham Amato , DO Other Provider Active Start: November 10, 2024 Dr. Ana Lilia Lebron , Attending Provider Active Start: November 10, 2024 Dr. Ana Lilia Lebron , Other Provider Active S tart: November 10, 2024 Team Status: Active Member Role Status Dates Shelia Salmon , FOUNDER AND CEO Primary Care Provider Active Start: November 11, 2024 Dr. Francisco Thompson , Emergency Provider Active Start: November 11, 2024 Dr. Hesham Amato , DO Admit Provider Active Start: November 11, 2024 Dr. Hesham Amato , DO Other Provider Active Start: November 11, 2024 Dr. Ana Lilia Lebron , Attending Provider Active Start: November 11, 2024 Dr. Ana Lilia Lebron , Other Provider Active S tart: November 11, 2024 Team Status: Active Member Role Status Dates Shelia Salmon , FOUNDER AND CEO Primary Care Provider Active Start: November 12, 2024 Dr. Francisco Thompson , Emergency Provider Active Start: November 12, 2024 Dr. Hesham Amato , DO Admit Provider Active Start: November 12, 2024 Dr. Hesham Amato , Other Provider Active Start: November 12, 2024 Dr. Ana Lilia Lebron , Attending Provider Active Start: November 12, 2024 Dr. Ana Lilia Lebron , Other Provider Active S tart: November 12, [...] End: December 10, 2024 Shelia Salmon , FOUNDER AND CEO Primary Care Provider Active Start: December 08, 2024 End: December 10, 2024 Team Status: Inactive Member Role Status Dates ESEQUIEL Headley Primary Care Provider Active Start: December 21, 2024 End: December 21, 2024 Dr. Babak Garcia DO Emergency Provider Active Start: December 21, 2024 End: December 21, 2024 Team Status: Active Member Role Status Dates Dr. Aleksandar oJnes MD Family Provider Active Shelia Salmon , FOUNDER AND CEO Primary Care Provider Active Team Status: Inactive Member Role Status Dates Shelia Salmon FOUNDER AND CEO Primary Care Provider Active Start: December 21, [...] End: January 04, 2025 Shelia Salmon , FOUNDER AND CEO Primary Care Provider Active Start: January 04, 2025 End: January 04, 2025 Group Practice Pediatrician Relationship Specialty Start Date End Date Aleksandar Jones MD [address] [facility] [place] [address] PCP - General Family Medicine 12/26/14 Koby Ramirez V [address] [facility] [place] [address] Internal Medicine 07/22/18 Radha Batista APRN.STEAM AND [employer] ASSEMBLER [address] [facility], [place] [address] Filtration Supervisor Family Medicine 09/20/24 Shelia Salmon APRN.STEAM AND [employer] TURBINE ASSEMBLER [address] [place] [address] Filtration Supervisor Family Medicine 09/20/24 Yolie Elliottarturo Other 05/30/14 Jail 12/18/17 [facility] 10/25/19 Group Practice Pediatrician Relationship Specialty Start Date End Date Aleksandar Jones MD [address] [place] [id number] PCP - General Family Medicine 12/26/14 Koby Ramirez V [address] [place] [phone] Internal Medicine 07/22/18 Radha Batista APRN.STEAM AND [employer] ASSEMBLER [address] [place] [address] Filtration Supervisor Family Medicine 09/20/24 Shelia Salmon APRN.STEAM AND G[employer]UR[employer] ASSEMBLER [address] [place] [address] Filtration Supervisor Family Medicine 09/20/24 YolieEstela Elliottarturo Other 05/30/14 Jail 12/18/17 [facility] 10/25/19 Group Practice Pediatrician Relationship Specialty Start Date End Date Aleksandar Jones MD [address] [place] [id number] PCP - General Family Medicine 12/26/14 Koby Ramirez V [address] [place] [phone] Internal Medicine 07/22/18 Radha Batista APRN.STEAM AND G[employer]UR[employer]INE ASSEMBLER [address] [place] [address] Filtration Supervisor Family Medicine 09/20/24 Shelia Salmon APRN.STEAM AND G[employer]SEMBLER [address] [place] [address] Filtration Supervisor Family Medicine 09/20/24 Yolie Mars Other 05/30/14 Jail 12/18/17 [facility] 10/25/19 Group Practice Pediatrician Relationship Specialty Start Date End Date Aleksandar Jones MD [address] [place] [address] PCP - General Family Medicine 12/26/14 oKby Ramirez V [address] [place] [address] Internal Medicine 07/22/18 Radha Batista APRN.STEAM AND G[employer]URBINE ASSEMBLER [address] [place] [address] Filtration Supervisor Family Medicine 09/20/24 Shelia Salmon APRN.STEAM AND G[employer]URBINE ASSEMBLER [address] [place] [address] Filtration Supervisor Family Medicine 09/20/24 Yolie Mars Other 05/30/14 Jail 12/18/17 [facility] 10/25/19 Group Practice Pediatrician Relationship Specialty Start Date End Date Aleksandar Jones MD [address] [place] [address] PCP - General Family Medicine 12/26/14 Koby Ramirez V [address] [place] [phone] Internal Medicine 07/22/18 Radha Batista, EDGE BANDING OFF BEARER.STEAM AND GAS TURBINE ASSEMBLER [address] [place] [address] Filtration Supervisor Family Medicine 09/20/24 Shelia Salmon EDGE BANDING OFF BEARER.STEAM AND G[employer] TURBINE ASSEMBLER [address] [place] [address] Filtration Supervisor Family Medicine 09/20/24 Yolie Mars Other 05/30/14 Jail 12/18/17 [facility] 10/25/19 Group Practice Pediatrician Relationship Specialty Start Date End Date Aleksandar Jones MD [address] [place] [address] PCP - General Family Medicine 12/26/14 Koby Ramirez V [address] [place] [phone] Internal Medicine 07/22/18 Radha Batista, EDGE BANDING OFF BEARER.STEAM AND GAS TURBINE ASSEMBLER [address] [place] [address] Filtration Supervisor Family Medicine 09/20/24 Shelia Salmon EDGE BANDING OFF BEARER.STEAM AND G[employer] TUR[employer]INE ASSEMBLER [address] [place] [address] Filtration Supervisor Family Medicine 09/20/24 Yolie Mars Other 05/30/14 Jail 12/18/17 [facility] 10/25/19 Group Practice Pediatrician Relationship Specialty Start Date End Date Aleksandar Jones MD [address] [place], [place] [phone] PCP - General Family Medicine 12/26/14 Koby Ramirez V [address] [place] [phone] Internal Medicine 07/22/18 Radha Batista APRN.STEAM AND G[employer] TUR[employer]INE ASSEMBLER [address] [place] [address] Filtration Supervisor Family Medicine 09/20/24 Shelia Salmon APRN.STEAM AND G[employer] TURBINE ASSEMBLER [address] [place] [address] Filtration Supervisor Family Medicine 09/20/24 Yolie Mars Other 05/30/14 Jail 12/18/17 [facility] 10/25/19 Group Practice Pediatrician Relationship Specialty Start Date End Date Aleksandar Jones MD [address] [place] [address] PCP - General Family Medicine 12/26/14 Koby Ramirez V [address] [place] [phone] Internal Medicine 07/22/18 Radha Batista APRN.STEAM AND G[employer] TUR[employer]INE ASSEMBLER [address] [place] [address] Filtration Supervisor Family [facility] 09/20/24 Shelia Salmon APRN.STEAM AND G[employer] TUR[employer]INE ASSEMBLER [address] [facility] [place] [address] Filtration Supervisor Family [facility] 09/20/24 Yolie Mars Other 05/30/14 Jail 12/18/17 clark [facility]r [facility] 10/25/19 Team Status: Active Member Role Status [...] March 01, 2025 End: March 01, 2025 [facility] Attending Provider Acti ve Start: March 01, 2025 End: March 01, 2025 Group Practice Pediatrician Relationship Specialty Start Date End Date Aleksandar Jones MD [address] [facility] [place] [address] PCP - General Family Medicine 12/26/14 Koby Ramirez V [address] [place] [address] Internal Medicine 07/22/18 Radha Batista APRN.STEAM AND G[employer] TURBINE ASSEMBLER [address] [facility] [place] [address] Filtration Supervisor Family Medicine 09/20/24 Shelia Salmon, EDGE BANDING OFF BEARER.STEAM AND G[employer] TURBINE ASSEMBLER [address] [place] [address] Filtration Supervisor Family Medicine 09/20/24 Yolie Mars Other 05/30/14 Jail 12/18/17 [facility] 10/25/19 Group Practice Pediatrician Relationship Specialty Start Date End Date Aleksandar Jones MD [address] [place] [address] PCP - General Family Medicine 12/26/14 Koby Ramirez V [address] [address] Internal Medicine 07/22/18 Radha Batista, EDGE BANDING OFF BEARER.STEAM AND GAS TURBINE ASSEMBLER [address] [place] [address] Filtration Supervisor Family Medicine 09/20/24 Shelia Salmon, EDGE BANDING OFF BEARER.STEAM AND GAS TURBINE ASSEMBLER [address] [place] [address] Filtration Supervisor Family Medicine 09/20/24 Yolie Mars Other 05/30/14 Jail 12/18/17 [facility] 10/25/19 Team Status: Active Member Role/Relationship Status [...] March 01, 2025 End: March 01, 2025 [facility] Attending Provider Acti ve Start: March [...] Care Provider Active Start: April 26, 2025 [facility] Attending Provider Acti ve Start: April [...] May 06, 2025 End: May 06, 2025 Group Practice Pediatrician Relationship Specialty Start Date End Date Aleksandar Jones MD [address] [facility] [address] PCP - General Family Medicine 12/26/14 Koby Ramirez V [address] [facility] [place] [address] Internal Medicine 07/22/18 Radha Batista APRN.STEAM AND G[employer] TURBINE ASSEMBLER [address] [place] [address] Filtration Supervisor Family Medicine 09/20/24 Shelia Salmon APRN.STEAM AND G[employer] TURBINE ASSEMBLER [address] [facility], [place] [address] Filtration Supervisor Family Medicine 09/20/24 Yolie Mars Other 05/30/14 Jail 12/18/17 [facility] 10/25/19 Team Status: Inactive Member Role/Relationship Status Dates Dr. Aleksandar Jones MD Primary Care Provider Active Start: March 01, 2025 End: March 01, 2025 [facility] Attending Provider Acti ve Start: March 01, 2025 End: March 01, 2025 Team Status: Active Member Role/Relationship Status Dates Dr. Aleksandar Jones MD Primary Care Provider Active Start: March 28, 2025 Aleksnadar MADRID Attending Provider Active Start : March 28, 2025 Team Status: Active Member Role/Relationship Status Dates Dr. Aleksandar Jones MD Primary Care Provider Active Start: April 11, 2025 Aleksandar MADRID Attending Provider Active Start : April 11, 2025 Team Status: Active Member Role/Relationship Status Dates Dr. Aleksandar Jones MD Primary Care Provider Active Start: April 26, 2025 [facility] Attending Provider Acti ve Start: April 26, 2025 Team Status: Inactive Member Role/Relationship Status Dates Dr. Koby Ramirez MD Attending Provider Active Start: May 06, 2025 End: May 06, 2025 Dr. Koby Ramirez MD Referring Provider Active Start: May 06, 2025 End: May 06, 2025 Dr. Aleksandar Jones MD Primary Care Provider Active Start: May 06, 2025 End: May 06, 2025 Team Status: Inactive Member Role/Relationship Status Dates Dr. Aleksandar Jones MD Primary Care Provider Active Start: May 10, 2025 End: May 10, 2025 Dr. Aleksandar Jones MD Referring Provider Active Start: May 10, 2025 End: May 10, 2025 MAKSIM Razo Attending Provider Active Start: May 10, 2025 End: May 10, 2025 Team Status: Active Member Role/Relationship Status Dates Dr. Aleksandar Jones MD Primary Care Provider Active Start: May 24, 2025 [facility] Attending Provider Acti ve Start: May 24, 2025 Team Status: Active Member Role/Relationship Status Dates Dr. Aleksandar Jones MD Primary Care Provider Active Start: June 21, 2025 Aleksandar MADRID Attending Provider Active Start : June 21, 2025 Team Status: Inactive Member Role/Relationship Status Dates Dr. Aleksandar Jones MD Primary Care Provider Active Start: June 23, 2025 End: June 23, 2025 Dr. Aleksandar Jones MD Referring Provider Active Start: June 23, 2025 End: June 23, 2025 Dr. Basil Velasquez DO Attending Provider Active Start: June 23, 2025 End: June 23, 2025 Team Status: Active Member Role/Relationship Status Dates Dr. Aleksandar Jones MD Primary Care Provider Active Start: June 23, 2025 Dr. Aleksandar Jones MD Referring Provider Active Start: June 23, 2025 Dr. Basil Velasquez DO Attending Provider Active Start: June 23, 2025 Dr. Basil Velasquez DO Other Provider Active St art: June 23, 2025 Group Practice Pediatrician Relationship Specialty Start Date End Date Aleksandar Jones MD [address] [place], [place] [address] PCP - General Family Medicine 12/26/14 Koby Ramirez V [facility] [place] [address] Internal Medicine 07/22/18 Radha Batista APRN.STEAM AND G[employer] TURBINE ASSEMBLER [address] [facility] [address] Filtration Supervisor Family Medicine 09/20/24 Shelia Salmon APRN.STEAM AND GAS TURBINE ASSEMBLER [address] [facility] [place] [place] [address] Filtration Supervisor Family Medicine 09/20/24 Yolie Mars Other 05/30/14 Jail 12/18/17 [facility] 10/25/19 Team Status: Active Member Role/Relationship Status Dates Dr. Aleksandar Jones MD Primary care physician Active Team Status: Active Member Role/Relationship Status Dates Dr. Aleksandar Jones MD Primary care physician Active Start: March 28, 2025 Aleksandar MADRID Attending physician Active Star t: March 28, 2025 Team Status: Active Member Role/Relationship Status Dates Dr. Aleksandar Jones MD Primary care physician Active Start: April 11, 2025 Aleksandar MADRID Attending physician Active Star t: April 11, 2025 Team Status: Active Member Role/Relationship Status Dates Dr. Aleksandar Jones MD Primary care physician Active Start: April 26, 2025 [facility] Attending physician Act damian Start: April 26, 2025 Team Status: Inactive Member Role/Relationship Status Dates Dr. Koby Ramirez MD Attending physician Active Start: May 06, 2025 End: May 06, 2025 Dr. Koby Ramirez MD Referring Provider Active Start: May 06, 2025 End: May 06, 2025 Dr. Aleksandar Jones MD Primary care physician Active Start: May 06, 2025 End: May 06, 2025 Team Status: Inactive Member Role/Relationship Status Dates Dr. Aleksandar Jones MD Primary care physician Active Start: May 10, 2025 End: May 10, 2025 Dr. Aleksandar Jones MD Referring Provider Active Start: May 10, 2025 End: May 10, 2025 MAKSIM Razo Attending physician Active Start: May 10, 2025 End: May 10, 2025 Team Status: Active Member Role/Relationship Status Dates Dr. Aleksandar Jones MD Primary care physician Active Start: May 24, 2025 [facility] Attending physician Act damian Start: May 24, 2025 Team Status: Active Member Role/Relationship Status Dates Dr. Aleksandar Jones MD Primary care physician Active Start: June 21, 2025 Aleksandar MADRID Attending physician Active Star t: June 21, 2025 Team Status: Inactive Member Role/Relationship Status Dates Dr. Aleksandar Jones MD Primary care physician Active Start: June 23, 2025 End: June 23, 2025 Dr. Aleksandar Jones MD Referring Provider Active Start: June 23, 2025 End: June 23, 2025 Dr. Basil Velasquez DO Attending physician Active Start: June 23, 2025 End: June 23, 2025 Team Status: Active Member Role/Relationship Status Dates Dr. Aleksandar Jones MD Primary care physician Active Start: June 23, 2025 Dr. Aleksandar Jones MD Referring Provider Active Start: June 23, 2025 Dr. Basil Velasquez DO Attending physician Active Start: June 23, 2025 Dr. Basil Velasquez DO Nurse Practitioner Active Start: June 23, 2025 Team Status: Inactive Member Role/Relationship Status Dates Dr. Aleksandar Jones MD Primary care physician Active Start: July 12, 2025 End: July 12, 2025 Dr. Aleksandar Jones MD Referring Provider Active Start: July 12, 2025 End: July 12, 2025 MAKSIM Razo Attending physician Active Start: July 12, 2025 End: July 12, 2025 Team Status: Inactive Member Role/Relationship Status Dates Dr. Aleksandar Jones MD Primary care physician Active Start: March 28, 2025 End: March 28, 2025 Aleksandar MADRID Attending physician Active Star t: March 28, 2025 End: March 28, 2025 FOR RECORDS PERTAINING TO PATIENTS WHO [...] BE BASED ON THE PRIMARY CLINICAL RECORDS. [facility] [employer] [facility]. provides no warranty or guarantee of the accuracy or completeness of information in this document.
[2025-08-16 08:40] LABS: Hematocrit 38.1 % (37-47); Hemoglobin 12.7 g/dL (12.0-15.0); Immature Granulocytes Count 0.050 X10^3/uL (0.0-0.0); Mean Corp Hgb Conc 33.3 g/dL (32-36); Mean Corpuscular Volume 86.8 fL (81-99); Mean Platelet Vol. 11.3 fl (6.2-12.0); NRBC Flagged by Analyzer 0 % (0-5); Platelet Count 159 K/mm3 (150-450); RBC Distribution Width CV 13.2 % (11.6-14.6); RBC Distribution Width SD 41.8 fl (35.1-43.9); Red Blood Count 4.39 M/mm3 (4.2-5.4); White Blood Count 9.4 K/mm3 (4.4-11.0)
== END ==
LOC: OLS.SWAL 05:00
PROVIDERS: PCP Family Medicine
DX: J44.9 Chronic obstructive pulmonary disease, unspecified (principal); E11.9 Type 2 diabetes mellitus without complications; E78.5 Hyperlipidemia, unspecified
CPT/HCPCS: 36415; 85025

== ENCOUNTER → 2025-09-13 05:00 | Outpatient (REF) | payer MEDICARE, MEDICAID, SELFPAY ==
--- OUTSIDE RECORDS SUMMARY | 2025-09-13 04:16 | XMS RPT_ITS | CCD ---
Author Organization [facility] Care Team Providers Care Logistics/Shipper Name Role Phone KIMBERLY AMAYA Unavailable Unavailable KIMBERLY AMAYA Unavailable Unavailable Aleksandar Jones Unavailable Unavailable KIMBERLY AMAYA Unavailable Unavailable KIMBERLY AMAYA Unavailable Unavailable Aleksandar Jones Unavailable Unavailable Aleksandar Jones MD Primary Care Provider Koby Floyd Unavailable Aleksandar Jones MD Primary Care Provider Koby Floyd Unavailable Aleksandar Jones MD Primary Care Provider Aleksandar Jonse MD Primary Care Provider Koby Floyd Unavailable [...] Unavailable Aleksandar Jones MD Primary Care Provider [facility], Kaitlyn Unavailable Haagen SMELLER.TOOL PROFILING MACHINE SET UP OPERATOR, Radha Unavailable Suppan SMELLER.TOOL PROFILING MACHINE SET UP OPERATOR, Shelia A Unavailable Suppan SMELLER.TOOL PROFILING MACHINE SET UP OPERATOR, Shelia A Unavailable [phone] Suppan SMELLER.TOOL PROFILING MACHINE SET UP OPERATOR, Shelia A Unavailable Robert SANDERS, Dr. Escalante Family Provider Racheal SANDERS, Dr. Peters Attending Provider Dr. Lorraine Springer MD Referring Provider Suppan HARMONICA MAKER, Shelia Primary Care Provider Dr. Tae [...] Dr. Lorraine Springer MD Referring Provider Suppan HARMONICA MAKER, Shelia Primary Care Provider Dr. Babak Garcia DO Attending Provider Robert SANDERS, Dr. Escalante Family Provider Racheal SANDERS, Dr. Peters Attending Provider Racheal SANDERS, Dr. Peters Referring Provider Saud IRAHETA, Shelia Primary Care Provider [facility] Attending Provid er Unavailable Robert SANDERS, Dr. Escalante Primary Care Provider Racheal SANDERS, Dr. Peters Attending Provider Racheal SANDERS, Dr. Peters Referring Provider lAeksandar Palomares Attending Provider Unavailable James SANDERS, Dr. Koby Cohen Attending Provider James SANDERS, Dr. Koby Cohen Referring Provider Robert SANDERS, Dr. Escalante Referring Provider Joselyn Franklin Attending Provider Robert SANDERS, Dr. Escalante Primary Care Provider Dr. Basil Velasquez DO Attending Provider Dr. Basil Velasquez DO Other Provider RADHA BATISTA Referring Unavailable ALEKSANDAR JONES Primary Care Unavailable ROBERT, ALEKSANDAR Jeffrey Primary Care Unavailable ROBERT, ALEKSANDAR Jeffrey Referring Unavailable ALEKSANDAR JONES Attending Unavailable ROBERT, ALEKSANDAR Jeffrey Primary Care Unavailable SLEIK, KHALED MELOUD Referring Unavailable ROBERT, ALEKSANDAR Jeffrey Primary Care Unavailable SLEIK, KHALED MELOUD Attending Unavailable SLEIK, KHALED MELOUD Referring Unavailable RADHA BATISTA Attending Unavailable ROBERT, ALEKSANDAR Jeffrey Primary Care Unavailable SHELIA SALMON Attending Unavailable ROBERT, ALEKSANDAR Jeffrey Primary Care Unavailable ROBERT, ALEKSANDAR Jeffrey Primary Care Unavailable RADHA BATISTA Attending Unavailable ROBERT, ALEKSANDAR Jeffrey Primary Care Unavailable SLEIK, KHALED MELOUD Referring Unavailable RADHA BATISTA Attending Unavailable ROBERTALEKSANDAR Attending Unavailable ROBERT, ALEKSANDAR Jeffrey Primary Care Unavailable ROBERT, ALEKSANDAR Jeffrey Primary Care Unavailable ROBERT, ALEKSANDAR Jeffrey Referring Unavailable HAAGEN, RADHA Referring Unavailable ROBERT, [...] Unavailable ROBERT, ALEKSANDAR Jeffrey Primary Care Unavailable HARADHA BROWN Referring Unavailable ROBERT, ALEKSANDAR Jeffrey Primary Care Unavailable ROBERT, ALEKSANDAR Jeffrey Primary Care Unavailable ROBERT, ALEKSANDAR Jeffrey Referring Unavailable ROBERT, ALEKSANDAR Jeffrey Primary Care Unavailable ROBERT, ALEKSANDAR Jeffrey Referring Unavailable ROBERT, ALEKSANDAR Jeffrey Attending Unavailable [...] ROBERT, ALEKSANDAR Jeffrey Primary Care Unavailable Robert SANDERS, Dr. Escalante Primary Care Physician [phone] Aleksandar Palomares [facility]ic ana paula Ramirez MD, Dr. Koby Cohen Attending Physician Joselyn Franklin Attending Physician Dr. Basil Velasquez DO Attending Physician Dr. Basil Velasquez DO Nurse Practitioner Aleksandar Jones Attending Unavailable Aleksandar Jones Primary Care Unavailable Aleksandar Jones Attending Unavailable Robert, Aleksandar Primary Care Unavailable Charan, Shelia Primary Care Unavailable Tae Holland Referring Unavailable Tae Holland Attending Unavailable Robert, Aleksandar Primary Care Unavailable Racheal Verdonald Referring Unavailable Lorraine Springer Attending Unavailable Aleksandar Jones Primary Care Unavailable Koby Ramirez V Attending Unavailable Koby Ramirez V Referring Unavailable Suppan, Shelia Primary Care Unavailable Babak Garcia Attending Unavailable Suppan, Shelia Primary Care Unavailable Hesham Amato Admitting Unavailable Ana Lilia Lebron Attending Unavailable Hesham Amato Consulting Unavailable Suppan, Shelia Primary Care Unavailable Astreika, Vera Attending Unavailable Astreika, Vera Referring Unavailable Suppan, Shelia Primary Care Unavailable Astreika, Vera Attending Unavailable Astreika, Vera Referring Unavailable Suppan, Shelia Primary Care Unavailable Astreika, Vera Attending Unavailable Astreika, Vera Referring Unavailable Joselyn Gross Attending Unavailable [place], Aleksandar Referring Unavailable Robert, Aleksandar Primary Care Unavailable Joselyn Gross Attending Unavailable Robert, Aleksandar Referring Unavailable Robert, Aleksandar Primary Care Unavailable Suppan, Shelia Primary Care Unavailable Hesham Amato Consulting Unavailable Ana Lilia Lebron Attending Unavailable Hesham Amato Admitting Unavailable nAa Lilia Lebron Unavailable Suppan, Shelia Primary Care Unavailable Astreika, Vera Attending Unavailable Astreika, Vera Referring Unavailable [place], Aleksandar Attending Unavailable [place], Aleksandar Primary [facility] [place] Unavailable [place], Aleksandar Primary Care Un[place] [facility] [place] Unavailable [place], Aleksandar Primary Care Unavailable [facility] Unavailable [place], Aleksandar Primary Care Unavailable Friend, Basil Attending Unavailable Robert, Aleksandar Referring Unavailable Robert, Aleksandar Primary Care Unavailable Hesham Amato Attending Unavailable Friend, Basil Attending Unavailable Friend, Basil Consulting Unavailable [place], Aleksandar Referring Unavailable Robert, Aleksanadr Primary Care Unavailable Suppan, Shelia Primary Care Unavailable Astreika, Vera Attending Unavailable [place]reika, Vera Referring Unavailable [place] [place] Unavailable Robert, Aleksandar Primary Care Unavailable [place], Aleksandar Primary Care Unavailable Astreika, Vera Referring Unavailable Astreika, Vera Attending Unavailable Robert, Aleksandar Attending Unavailable [place], Aleksandar Primary Care Unavailable Medications Current Medications Medication [...] mg PO DAILY@1600 July 22, 2018 12:00am [employer] Complies with drug therapy Comment on above: [...] daily at bedtime. For cholesterol. 30 tablet 11 06/28/2025 06/28/2026 Active Start: 03-26-2023 End: 06-21-2025 [...] Comment on above: Take 1 capsule by [facility] four times daily for 5 days. cholecalciferol 0.025 mg oral capsule (20 sources) Vitamin D Start: End: take 1 capsule by mouth once daily Cholecalciferol (Vitamin D3) (Vitamin D3) 1,000 UNIT capsule Active 1000 U PO DAILY October 17, 2017 1:00am SUPPLEMENT Complies with drug therapy Comment on above: Take 1 capsule by [facility] once daily. clonazePAM 1 mg oral tablet (20 sources) Benzodiazepine Start: take 1 tablet by mouth at bedtime Clonazepam 1 mg tablet Active 1 mg PO AT BEDTIME June 21, 2025 12:00am Complies with drug therapy Start: 06-05-2022 take 1 tablet by [facility] twice daily Clonazepam 0.5 mg Tablet Active 0.5 mg PO TWICE A DAY June 05, 2022 12:00am schizophrenia Complies with drug therapy Start: 06-05-2022 take 2 tablets by [facility] twice daily Clonazepam 0.5 mg [...] Comment on above: Take 1 capsule by [facility] two times a day. empagliflozin 10 mg oral tablet (20 sources) Sodium-Glucose Cotransporter 2 Inhibitor Start: End: 12-23-2 024 take 1 tablet by mouth once daily [...] take 1 puff(s) by inhalation once daily BOBLEOG ELLIPTA 100-62.5-25 mcg inhalation powder Inhale 1 [...] once daily. Per Dr. Ramirez 1 Each 06/25/2019 04/04/2025 Discontinued (Course of therapy completed) [...] Comment on above: Take 1 tablet by [facility] twice daily. 12 hr guaiFENesin 600 mg [...] Discontinued 1200 mg PO TWICE A DAY 20 August 16, 2023 12:00am November 12, 2024 [...] on above: Take 2 tablets by mo ut twice daily. Take 2 tablets by mo ut two times a day. haloperidol 2 mg [...] solution Active 1 sliding scale dose SC . June 21, 2025 12:00am Complies with drug [...] 1 capsule by mo uth once daily. Carter-3 Fatty Acids-Fish Oil (Fish Oil) 1 EACH capsule (6 sources) Start: 10-17-2017 Carter-3 Fatty Acids-Fish Oil (Fish Oil) 1 EACH capsule Active 1 EACH PO DAILY October 17, 2017 3:27pm Start: 10-17-2017 Carter-3 Fatty Acids-Fish Oil (Fish Oil) 1 EACH capsule Active 1 EACH PO DAILY October 17, 2017 1:00am Carter-3 Fatty Acids-Fish Oil 300-1,000 mg capsule (8 sources) Start: 11-09-2024 Carter-3 Fatty Acids-Fish Oil 300-1,000 mg capsule Active 1 NMA PO AT BEDTIME November 09, 2024 1:00am Complies with drug therapy Start: 11-09-2024 Carter-3 Fatty Acids-Fish Oil 300-1,000 mg capsule Active 1 NMA PO AT BEDTIME November 09, 2024 1:00am Start: 11-09-2024 Carter-3 Fatty Acids-Fish Oil 300-1,000 mg capsule Active [...] capsule,delayed release(DR/EC) Discontinued 40 mg PO daily 90 May 27, 2025 12:00am June 21, 2025 11:28am Start: 05-10-2025 End: 05-27-2025 take 1 capsule by mouth twice daily Omeprazole 20 mg capsule,delayed release(DR/EC) Discontinued 20 mg PO TWICE A DAY 90 May 10, 2025 1:00pm May 27, 2025 [...] syrg injection 07/01/2022 Active polyethylene glycol 3350 12794 mg powder for oral solution (20 sources) [...] Start: 09-26-2021 End: 04-29-2023 polyethylene glycol 3350 (AK RALAX) 17 gram/dose powder Indications: Chronic constipation Take 17 .5 tsps as needed for constipation. 235 g 6 01/11/2022 04/29/2023 Discontinued (Duplicate Entry) Start: 08-24-2021 End: 02-20-2022 polyethylene glycol 3350 (AK RALAX, GLYCOLAX) 17 gram packet Take 1 [...] as needed for constipation. polyethylene glycol 3350 253374 mg / potassium chloride 2970 mg / sodium bicarbonate 6740 mg / sodium chloride 5860 mg / sodium sulfate 57269 mg powder for oral solution (11 sources) Osmotic Laxative Start: 12-13-2023 Peg 3350-Electrolytes (Golytely) 236-22.74-6.74 -5.86 gram recon soln Active 240 mL PO EVERY 10 MINUTES NEEDED 4000 0 December 13, 2023 1:00am until fecal effluent is clear Complies with drug therapy Start: 12-13-2023 Peg 3350-Elect rolytes (Golytely) 236-22.74-6.74 -5.86 gram recon soln Active 240 ML PO EVERY 10 MINUTES NEEDED 4000 December 13, 2023 1:00am until fecal effluent is clear polymyxin b 11107 unt/ml / trimethoprim 1 mg/ml ophthalmic solution [...] July 30, 2021 6:01pm Start: 07-30-2021 Psyllium (Skipwith mucil) Packet Active 1 PACKET PO AT BEDTIME July 29, 2021 11:00pm Start: 07-30-2021 Psyllium (Skipwith mucil) Packet Active 1 PACKET PO AT [...] sources) Aluminum Complex Start: 06-23-20 End: 07-23-20 25 take 1 tablet by mouth twice [...] on above: Take 1 capsule by mo ut once daily. COMPOUNDED PRESCRIPTION (20 sources) Start: [...] Chloride Channel Activator Start: 07-22-20 End: 04-29-20 23 take 1 capsule by mouth twice daily at mealtime lubiprostone (AMITIZA) 24 mcg capsule Indications: Chronic idiopathic constipation Take 1 capsule by mouth twice daily with meals. 60 capsule 11 03/01/2020 02/08/2021 Discontinued Comment on above: Take 1 capsule by [facility] twice daily with meals. magnesium hydroxide 80 mg/ml oral suspension (20 sources) Start: 03-28-20 End: 04-29-20 23 magnesium hydroxide (MILK OF MAGNESIA) 400 mg/5 [...] (20 sources) Azole Antifungal Start: 3 End: miconazole nitrate (MONISTAT) 200 mg vaginal [...] Applicator vag inally daily at bedtime. nystatin 400306 unt/ml oral suspension (3 sources) Polyene Antifungal Start: 5 End: 5 take 1 mL by mouth once Nystatin 100,000 unit/mL suspension Discontinued 1 mL PO ONCE 14 14 0 June 23, 2025 12:00am July 06, 2025 12:00am July 07, 2025 12:11am swish and swallow Fhbbx-2-QKR-EPA-Fish Oil (FISH OIL) 300-1,000 mg cap (20 sources) End: 4 Debhh-6-ZQK-EPA-Fish Oil (FISH OIL) 300-1,000 mg cap Take by mouth. 0 03/02/2024 Discontinued (Duplicate Entry) Gnqcx-4-RNW-EPA- Fish Oil (FISH OIL) 300-1,000 mg cap [...] Take 1 tablet by rosemary once daily. 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; Translations: [Other fpc (current) drug therapy] Onset: 5 Episodic Other [...] insufficiency (chronic) (peripheral); Translations: [Venous insufficiency] Onset: 5 Episodic Other eye disorders (1 source) Pain [...] 07-06-2024 12-30-2024 Episodic Other aftercare (1 source) penitentiary (current) use of insulin; Translations: [Type 2 [...] Anion gap [Moles/Vol] 17 mmol/L High 8-15 [facility] Comment on above: Order Comment: Speci men Type: BLOOD SPECIMENOrdering Facility: [facility] Address: [address] [place] [address] Performed By: #### 2 4321-2, 66541-7, 3016-3, 75748-8 ####[facility] LABCLIA [id number] [place] [id number] [place] Calcium [Mass/Vol] 9.6 mg/dL Normal 8.5-10.2 [facility] Comment on above: Order Comment: Speci men Type: BLOOD SPECIMENOrdering Facility: [facility] Address: [address] [place] [address] Performed By: #### 2 4321-2, 87884-1, 3016-3, 30687-5 ####[facility] LABCLIA [id number] [place] [id number] [place] Chloride [Moles/Vol] 92 mmol/L Low 98-107 [facility] Comment on above: Order Comment: Speci men Type: BLOOD SPECIMENOrdering Facility: [facility] Address: [address] [place], [place] [address] Performed By: #### 2 4321-2, 52690-1, 3016-3, 90364-4 ####[facility] LABCLIA [id number] [address] [address] [place] CO2 [Moles/Vol] 21 mmol/L Low 22-30 [facility] Comment on above: Order Comment: Speci men Type: BLOOD SPECIMENOrdering Facility: [facility] Address: [address] [place], [place] [address] Performed By: #### 2 4321-2, 85859-8, 3016-3, 02809-6 ####[facility] LABIA [id number] [address] [address] [place] Creatinine [Mass/Vol] 0.40 mg/dL Low 0.58-0.96 [facility] Comment on above: Order Comment: Speci men Type: BLOOD SPECIMENOrdering Facility: [facility] Address: [address] [place] [address] Performed By: #### 2 4321-2, , 3015-3, 65488-4 ####[facility] LABIA [id number] [place] [id number] [place] eGFRcr SerPlBld CKD-EPI 2020 113 mL/min/1.73m??? Normal >=60 [facility] Comment on above: Order Comment: Rand gonzalez Type: BLOOD SPECIMENOrdering Facility: [facility] Address: [address] [place] [address] Result Comment: Gia mated Glomerular Filtration Rate [...] actual GFR. Performed By: #### 2 4321-2, , 3, 90341-3 ####[facility] LABIA [id number] [address] [address] [place] Glucose [Mass/Vol] 95 mg/dL Normal 74-99 [facility] Comment on above: Order Comment: Speci men Type: BLOOD SPECIMENOrdering Facility: [facility] Address: [address] [place] [address] Result Comment: The [place] [employer] Association (ADA) provides guidance for cutoff [...] Standards of Medical Care in Diabetes 2016, [place] [employer]. Diabetes Care. 2016.39(Suppl 1). Performed By: #### 2 4321-2, 72313-7, 3016-3, 06082-4 ####[facility] LABIA [id number] [place] [id number] [place] Potassium [Moles/Vol] 4.5 mmol/L Normal 3.7-5.1 [facility] Comment on above: Order Comment: Speci men Type: BLOOD SPECIMENOrdering Facility: [facility] Address: [address] [place] [address] Performed By: #### 2 4321-2, , 6-3, 24613-9 ####[facility] [id number] [place] [id number] [place] Sodium [Moles/Vol] 130 mmol/L Low 136-144 [facility] Comment on above: Order Comment: Speci men Type: BLOOD SPECIMENOrdering Facility: [facility] Address: [address] [place] [address] Performed By: #### 2 4321-2, 04790-0, 3015-3, 46785-0 ####[facility] LABIA [id number] [place] [id number] [place] Urea nitrogen [Mass/Vol] 9 mg/dL Normal 7-21 [facility] Comment on above: Order Comment: Speci men Type: BLOOD SPECIMENOrdering Facility: [facility] Address: [address] [place] [address] Performed By: #### 2 432-2, , 6-3, 67566-9 ####[facility] LABCLIA [id number] [place] [address] [place] CBC W Auto Differential pane l (Bld)on 06-28-2025 Basophils (Bld) [#/Vol] 0.05 10*3/uL [facility] Basophils/100 WBC (Bld) 0.6 % C [facility] Differential cell count method Nom (Bld) Auto [facility] Eosinophils (Bld) [#/Vol] 0.04 10*3/uL [facility] Eosinophils/100 WBC (Bld) 0.5 % [facility] Erythrocyte distribution width (RBC) [Ratio] 12.8 % 11.5 - 15.0 % [facility] Hematocrit (Bld) [Volume fraction] 42.1 % 36.0 - 46.0 % [facility] Hemoglobin (Bld) [Mass/Vol] 13.9 g/dL 11.5 - 15.5 g/dL [facility] Immature granulocytes (Bld) [#/Vol] 0.03 10*3/uL [facility] Immature granulocytes/100 WBC (Bld) 0.4 % [facility] Lymphocytes (Bld) [#/Vol] 2.04 10*3/uL [facility] Lymphocytes/100 WBC (Bld) 25.5 % [facility] MCH (RBC) [Entitic mass] 29.2 pg 26. 0 - 34.0 pg [facility] MCHC (RBC) [Mass/Vol] 33.0 g/dL 30.5 - 36.0 g/dL [facility] MCV (RBC) [Entitic vol] 88.4 fL 80.0 - 100.0 fL [facility] Monocytes (Bld) [#/Vol] 0.70 10*3/uL [facility] Monocytes/100 WBC (Bld) 8.8 % [facility] Neutrophils (Bld) [#/Vol] 5.14 10*3/uL [facility] Neutrophils/100 WBC (Bld) 64.2 % [facility] Nucleated RBC (Bld) [#/Vol] [facility] Nucleated RBC/100 WBC (Bld) [Ratio] 0.0 % /100 WBC [facility] Platelet mean volume (Bld) [Entitic vol] 12.2 fL 9.0 - 12.7 fL [facility] Platelets (Bld) [#/Vol] 192 10*3/uL [facility] Comment on above: Results checked and verified.No clot detected. RBC (Bld) [#/Vol] 4.76 10*6/uL 3.90 - 5.2 0 m/uL [facility] WBC (Bld) [#/Vol] 8.00 10*3/uL [facility] Basophils (Bld) [#/Vol] 0.05 10*3/uL Normal <0.11 [facility] Comment on above: Order Comment: Speci men Type: BLOOD SPECIMENOrdering Facility: [facility] Address: [address] [place] [address] Performed By: #### 5 7021-8 ####[facility] LABCLIA [id number] [place] [address] [place] Basophils/100 WBC (Bld) 0.6 % Normal C [facility] Comment on above: Order Comment: Speci men Type: BLOOD SPECIMENOrdering Facility: [facility] Address: [address] [place] [address] Performed By: #### 5 7021-8 ####[facility] LABCLIA [id number] [place] [address] [place] Differential cell count method Nom (Bld) Auto Normal [facility] Comment on above: Order Comment: Speci men Type: BLOOD SPECIMENOrdering Facility: [facility] Address: [address] [place] [address] Performed By: #### 5 7021-8 ####[facility] LABCLIA [id number] [place] [address] [place] Eosinophils (Bld) [#/Vol] 0.04 10*3/uL Normal <0.46 [facility] Comment on above: Order Comment: Speci men Type: BLOOD SPECIMENOrdering Facility: [facility] Address: [address] [place] [address] Performed By: #### 5 7021-8 ####[facility] LABCLIA [id number] [place] [address] [place] Eosinophils/100 WBC (Bld) 0.5 % Normal [facility] Comment on above: Order Comment: Speci men Type: BLOOD SPECIMENOrdering Facility: [facility] Address: [address] [place] [address] Performed By: #### 5 7021-8 ####[facility] LABCLIA [id number] [place] [address] [place] Erythrocyte distribution width (RBC) [Ratio] 12.8 % Normal 11.5-15.0 [facility] Comment on above: Order Comment: Speci men Type: BLOOD SPECIMENOrdering Facility: [facility] Address: [address] [place] [address] Performed By: #### 5 7021-8 ####[facility] LABIA [id number] [place] [address] [place] Hematocrit (Bld) [Volume fraction] 42.1 % Normal 36.0-46.0 [facility] Comment on above: Order Comment: Speci men Type: BLOOD SPECIMENOrdering Facility: [facility] Address: [address] [place] [address] Performed By: #### 5 7021-8 ####[facility] LABCLIA [id number] [place] [address] [place] Hemoglobin (Bld) [Mass/Vol] 13.9 g/dL Normal 11.5-15.5 [facility] Comment on above: Order Comment: Speci men Type: BLOOD SPECIMENOrdering Facility: [facility] Address: [address] [place] [address] Performed By: #### 5 7021-8 ####[facility] LABIA [id number] [place] [address] [place] Immature granulocytes (Bld) [#/Vol] 0.03 10*3/uL Normal <0.10 [facility] Comment on above: Order Comment: Speci men Type: BLOOD SPECIMENOrdering Facility: [facility] Address: [address] [place] [address] Performed By: #### 5 7021-8 ####[facility] LABCLIA [id number] [place] [address] [place] Immature granulocytes/100 WBC (Bld) 0.4 % Normal [facility] Comment on above: Order Comment: Speci men Type: BLOOD SPECIMENOrdering Facility: [facility] Address: [address] [place] [address] Performed By: #### 5 7021-8 ####[facility] LABCLIA [id number] [place] [address] [place] Lymphocytes (Bld) [#/Vol] 2.04 10*3/uL Normal 1.00-4.00 [facility] Comment on above: Order Comment: Speci men Type: BLOOD SPECIMENOrdering Facility: [facility] Address: [address] [place] [address] Performed By: #### 5 7021-8 ####[facility] LABCLIA [id number] [place] [address] [place] [place] Lymphocytes/100 WBC (Bld) 25.5 % Normal [facility] Comment on above: Order Comment: Speci men Type: BLOOD SPECIMENOrdering Facility: [facility] Address: [address] [place] [address] Performed By: #### 5 7021-8 ####[facility] LABCLIA [id number] [place] [address] [place] MCH (RBC) [Entitic mass] 29.2 pg Normal 26.0-34.0 [facility] Comment on above: Order Comment: Speci men Type: BLOOD SPECIMENOrdering Facility: [facility] Address: [address] [place] [address] Performed By: #### 5 7021-8 ####[facility] LABCLIA [id number] [place] [address] [place] MCHC (RBC) [Mass/Vol] 33.0 g/dL Normal 30.5-36.0 [facility] Comment on above: Order Comment: Speci men Type: BLOOD SPECIMENOrdering Facility: [facility] Address: [address] [place] [address] Performed By: #### 5 7021-8 ####[facility] LABCLIA [id number] [place] [address] [place] MCV (RBC) [Entitic vol] 88.4 fL Normal 80.0-100.0 C [facility] Comment on above: Order Comment: Speci men Type: BLOOD SPECIMENOrdering Facility: [facility] Address: [address] [place] [address] Performed By: #### 5 7021-8 ####[facility] LABIA [id number] [place] [address] [place] Monocytes (Bld) [#/Vol] 0.70 10*3/uL Normal <0.87 [facility] Comment on above: Order Comment: Speci men Type: BLOOD SPECIMENOrdering Facility: [facility] Address: [address] [place] [address] Performed By: #### 5 7021-8 ####[facility] LABCLIA [id number] [place] [address] [place] Monocytes/100 WBC (Bld) 8.8 % Normal C [facility] Comment on above: Order Comment: Speci men Type: BLOOD SPECIMENOrdering Facility: [facility] Address: [address] [place] [address] Performed By: #### 5 7021-8 ####[facility] LABCLIA [id number] [address] [id number] [address] [place] Neutrophils (Bld) [#/Vol] 5.14 10*3/uL Normal 1.45-7.50 [facility] Comment on above: Order Comment: Speci men Type: BLOOD SPECIMENOrdering Facility: [facility] Address: [address] [place] [address] Performed By: #### 5 7021-8 ####[facility] LABCLIA [id number] [place] [address] [place] Neutrophils/100 WBC (Bld) 64.2 % Normal [facility] Comment on above: Order Comment: Speci men Type: BLOOD SPECIMENOrdering Facility: [facility] Address: [address] [place] [address] Performed By: #### 5 7021-8 ####[facility] LABCLIA [id number] [place] [address] [place] Nucleated RBC (Bld) [#/Vol] 10*3/uL Normal <0.01 [facility] Comment on above: Order Comment: Speci men Type: BLOOD SPECIMENOrdering Facility: [facility] Address: [address] [place] [address] Performed By: #### 5 7021-8 ####[facility] LABCLIA [id number] [place] [address] [place] Nucleated RBC/100 WBC (Bld) [Ratio] 0.0 /100 WBC Normal [facility] Comment on above: Order Comment: Speci men Type: BLOOD SPECIMENOrdering Facility: [facility] Address: [address] [place] [address] Performed By: #### 5 7021-8 ####[facility] LABCLIA [id number] [place] [address] [place] Platelet mean volume (Bld) [Entitic vol] 12.2 fL Normal 9.0-12.7 [facility] Comment on above: Order Comment: Speci men Type: BLOOD SPECIMENOrdering Facility: [facility] Address: [address] [place] [address] Performed By: #### 5 7021-8 ####[facility] LABIA [id number] [place] [address] [place] Platelets (Bld) [#/Vol] 192 10*3/uL Normal 150-400 [facility] Comment on above: Order Comment: Speci men Type: BLOOD SPECIMENOrdering Facility: [facility] Address: [address] [place] [address] Result Comment: Resu lts checked and verified.No clot detected. Performed By: #### 5 7021-8 ####[facility] LABIA [id number] [place] [address] [place] RBC (Bld) [#/Vol] 4.76 10*6/uL Normal 3.90-5.20 [facility] Comment on above: Order Comment: Speci men Type: BLOOD SPECIMENOrdering Facility: [facility] Address: [address] [place] [address] Performed By: #### 5 7021-8 ####[facility] LABIA [id number] [place] [address] [place] WBC (Bld) [#/Vol] 8.00 10*3/uL Normal 3.70-11.00 [facility] Comment on above: Order Comment: Speci men Type: BLOOD SPECIMENOrdering Facility: [facility] Address: [address] [place] [address] Performed By: #### 5 7021-8 ####[facility] LABIA [id number] [place] [address] [place] CNOVon 06-28-2025 CNOV Normal [facility] Cobalamin (Vitamin B12) [Mas s/Vol]on 06-28-2025 Interpretation and review of laboratory results Normal [facility] HbA1c (Bld)on 06-28-2025 Average glucose Estimated from glycated hemoglobin (Bld) [Mass/Vol] 131 mg/dL [facility] Comment on above: eAG: (Estimated aver age glucose) is a calculated value from HgbA1c and is plastic products sales representative of the average blood glucose level in the last 2-3 month period. HbA1c (Bld) [Mass fraction] 6.2 % High 4.3 - 5.6 % [facility] Comment on above: [place] Diabetes As sociation guidelines indicate that patients with HgbA1c in the range 5.7-6.4% are at increased risk for development of diabetes, and intervention by lifestyle modification may be beneficial. HgbA1c greater or equal to 6.5% is considered diagnostic of diabetes. Interpretation and review of laboratory results Abnormal [facility] Average glucose Estimated from glycated hemoglobin (Bld) [Mass/Vol] 131 mg/dL Normal [facility] Comment on above: Order Comment: Rand gonzalez Type: BLOOD SPECIMENOrdering Facility: [facility] Address: [address] [place] [address] Result Comment: eAG: (Estimated average glucose) is a calculated value from HgbA1c and is plastic products sales representative of the average blood glucose level in the last 2-3 month period. Performed By: #### 5 5454-3 ####[facility] LABCLIA [id number] [place] [address] [place] HbA1c (Bld) [Mass fraction] 6.2 % High 4.3-5.6 [facility] Comment on above: Order Comment: Rand gonzalez Type: BLOOD SPECIMENOrdering Facility: [facility] Address: [address] [place] [address] Result Comment: [place] Diabetes Association guidelines indicate that patients with HgbA1c in the range 5.7-6.4% are at increased risk for development of diabetes, and intervention by lifestyle modification may be beneficial. HgbA1c greater or equal to 6.5% is considered diagnostic of diabetes. Performed By: #### 5 5454-3 ####[facility] LABCLIA [id number] [place] [id number] [place] Magnesium SerPl-mCncon 06-28 Magnesium [Mass/Vol] 2.1 mg/dL Normal 1.7-2.3 [facility] Comment on above: Order Comment: Speci men Type: BLOOD SPECIMENOrdering Facility: [facility] Address: [address] [place] [address] Performed By: #### 2 4321-2, 94517-6, 3016-3, 09645-0 ####[facility] LABCLIA [id number] [place] [address] [place] NT-proBNP SerPl-ncon 06-28 Natriuretic peptide.B prohormone N-Terminal [Mass/Vol] <36 Normal <125 [facility] Comment on above: Order Comment: Speci men Type: BLOOD SPECIMENOrdering Facility: [facility] Address: [address] [place] [address] Performed By: #### 2 4321-2, 34471-4, 6-3, 82674-7 ####[facility] LABCLIA [id number] [place] [id number] [place] TSH SerPl-aCncon 06-28-2025 TSH Qn 0.986 m[IU]/L Normal 0.270-4.200 [facility] Comment on above: Order Comment: Speci men Type: BLOOD SPECIMENOrdering Facility: [facility] Address: [address] [place] [address] Performed By: #### 2 4321-2, 52429-5, 6-3, 03685-0 ####[facility] LABIA [id number] [place] [id number] [place] VITAMIN B12on 06-28-2025 Cobalamin (Vitamin B12) [Mass/Vol] 785 pg/mL 232 - 1245 pg/mL [facility] Vit B12 SerPl-mCncon 025 Cobalamin (Vitamin B12) [Mass/Vol] 785 pg/mL Normal 232-1245 [facility] Comment on above: Order Comment: Speci men Type: BLOOD SPECIMENOrdering Facility: [facility] Address: [address] [place] [address] Performed By: #### 2 132-9 ####[facility] LABCLIA [id number] [facility]ALTHCAREAlpesh [facility] [place] [address] [place] [facility] deOrdered By: Basil Velasquez on 06-23-2025 Glucose [Mass/Vol] 119 mg/dL High 74-106 [place] Comment on above: MANAGEMENT OF PATIEN T CARE PER NURSING PROTOCOL Absolute lymphocyte countOrd ered By: Aleksandar Jones on 06-21-2025 Lymphocytes Auto (Unsp spec) [#/Vol] 2.07 10*3/uL 0.83-4.51 [facility] Absolute neutrophil countOrd ered By: Aleksandar Jones on 06-21-2025 Neutrophils (Bld) [#/Vol] 9.0 10*3/uL High 2.0-7.7 [facility] Automated lymphocyte count a s percentage of total leukocytesOrdered By: Aleksandar Jones on 06-21-2025 Lymphocytes/100 WBC Auto (Unsp spec) 17.3 % Low 19-41 [facility] Basophil percentageOrdered B y: Aleksandar Jones on 06-21-2025 Basophils/100 WBC (Bld) 0.4 % 0-1 [facility] Eosinophil percentageOrdered By: Aleksandar Jones on 06-21-2025 Eosinophils/100 WBC (Bld) 0.3 % 0-5 [facility] Erythrocyte distribution wid th ratioOrdered By: Aleksandar Jones on 06-21-2025 Erythrocyte distribution width (RBC) [Ratio] 13.0 % 11.6-14.6 [facility] Erythrocyte distribution wid th standard deviationOrdered By: Aleksandar Jones on 06-21-2025 Erythrocyte distribution width (RBC) [Ratio] 42.5 fl 35.1-43.9 [facility] Hematocrit Auto (Bld) [Volum e fraction]Ordered By: Aleksandar Jones on 06-21-2025 Hematocrit (Bld) [Volume fraction] 39.5 % 37-47 [facility] Hemoglobin measurementOrdere d By: Aleksandar Jones on 06-21-2025 Hemoglobin (Bld) [Mass/Vol] 13.0 g/dL 12.0-15.0 [facility] Immature granulocytes/100 WB C Auto (Bld)Ordered By: Aleksandar Jones on 06-21-2025 Immature granulocytes/100 WBC (Bld) 0.500 % 0.0-0.9 [facility] Comment on above: IG% - Immature Granu locytes (promyelocytes, myelocytes and metamyelocytes) > 1% indicates that a LEFT SHIFT is Present. MCV (mean corpuscular volume ) determinationOrdered By: Aleksandar Jones on 06-21-2025 MCV (RBC) [Entitic vol] 88.8 fL 81-99 [facility] Mean corpuscular hemoglobin (MCH) determinationOrdered By: Aleksandar Jones on 06-21-2025 MCH (RBC) [Entitic mass] 29.2 pg 27.0-32.0 [facility] Mean corpuscular hemoglobin concentration (MCHC) determinationOrdered By: Aleksandar Jones on 06-21-2025 MCHC (RBC) [Mass/Vol] 32.9 g/dL 32-36 [facility] Mean platelet volume determi nationOrdered By: Aleksandar Jones on 06-21-2025 Platelet mean volume (Bld) [Entitic vol] 11.1 fL 6.2-12.0 [facility] Monocyte percentageOrdered B y: Aleksandar Jones on 06-21-2025 Monocytes/100 WBC (Bld) 6.4 % 0-10 [facility] Neutrophil percentageOrdered By: Aleksandar Jones on 06-21-2025 Neutrophils/100 WBC (Bld) 75.1 % High 47-70 [facility] Nucleated red blood cell per centageOrdered By: Aleksandar Jones on 06-21-2025 Nucleated RBC/100 WBC (Bld) [Ratio] 0 % 0-5 [facility] Platelet countOrdered By: Julio Cesar Jones on 06-21-2025 Platelets (Bld) [#/Vol] 226 10*3/uL 150-450 [facility] RBC Auto (Bld) [#/Vol]Ordere d By: Aleksandar Jones on 06-21-2025 RBC (Bld) [#/Vol] 4.45 10*6/uL 4.2-5.4 [facility] White blood cell (WBC) count Ordered By: Aleksandar Jones on 06-21-2025 WBC (Bld) [#/Vol] 11.9 10*3/uL High 4.4-11.0 [facility] CNPNon 06-03-2025 CNPN Normal [facility] Absolute lymphocyte countOrd ered By: [facility] on 05-24-2025 Lymphocytes Auto (Unsp spec) [#/Vol] 1.84 10*3/uL 0.83-4.51 [facility] Absolute neutrophil countOrd ered By: [facility] on 05-24-2025 Neutrophils (Bld) [#/Vol] 5.3 10*3/uL 2.0-7.7 [facility] Automated lymphocyte count a s percentage of total leukocytesOrdered By: [facility] on 05-24-2025 Lymphocytes/100 WBC Auto (Unsp spec) 22.7 % 19-41 [facility] Basophil percentageOrdered B y: [facility] on 05-24-2025 Basophils/100 WBC (Bld) 0.5 % 0-1 [facility] Eosinophil percentageOrdered By: [facility] on 05-24-2025 Eosinophils/100 WBC (Bld) 0.5 % 0-5 [facility] Erythrocyte distribution wid th ratioOrdered By: [facility] on 05-24-2025 Erythrocyte distribution width (RBC) [Ratio] 13.3 % 11.6-14.6 [facility] Erythrocyte distribution wid th standard deviationOrdered By: [facility] on 05-24-2025 Erythrocyte distribution width (RBC) [Ratio] 43.7 fl 35.1-43.9 [facility] Hematocrit Auto (Bld) [Volum e fraction]Ordered By: [facility] on 05-24-2025 Hematocrit (Bld) [Volume fraction] 39.5 % 37-47 [facility] Hemoglobin measurementOrdere d By: [facility] on 05-24-2025 Hemoglobin (Bld) [Mass/Vol] 13.3 g/dL 12.0-15.0 [facility] Immature granulocytes/100 WB C Auto (Bld)Ordered By: [facility] on 05-24-2025 Immature granulocytes/100 WBC (Bld) 0.900 % 0.0-0.9 [facility] Comment on above: IG% - Immature Granu locytes (promyelocytes, myelocytes and metamyelocytes) > 1% indicates that a LEFT SHIFT is Present. MCV (mean corpuscular volume ) determinationOrdered By: [facility] on 05-24-2025 MCV (RBC) [Entitic vol] 89.4 fL 81-99 [facility] Mean corpuscular hemoglobin (MCH) determinationOrdered By: [facility] on 05-24-2025 MCH (RBC) [Entitic mass] 30.1 pg 27.0-32.0 [facility] Mean corpuscular hemoglobin concentration (MCHC) determinationOrdered By: [facility] on 05-24-2025 MCHC (RBC) [Mass/Vol] 33.7 g/dL 32-36 [facility] Mean platelet volume determi nationOrdered By: [facility] on 05-24-2025 Platelet mean volume (Bld) [Entitic vol] 10.1 fL 6.2-12.0 [facility] Monocyte percentageOrdered B y: [facility] on 05-24-2025 Monocytes/100 WBC (Bld) 9.4 % 0-10 [facility] Neutrophil percentageOrdered By: [facility] on 05-24-2025 Neutrophils/100 WBC (Bld) 66.0 % 47-70 [facility] Nucleated red blood cell per centageOrdered By: [facility] on 05-24-2025 Nucleated RBC/100 WBC (Bld) [Ratio] 0 % 0-5 [facility] Platelet countOrdered By: [facility] on 05-24-2025 Platelets (Bld) [#/Vol] 220 10*3/uL 150-450 [facility] RBC Auto (Bld) [#/Vol]Ordere d By: [facility] on 05-24-2025 RBC (Bld) [#/Vol] 4.42 10*6/uL 4.2-5.4 [facility] White blood cell (WBC) count Ordered By: [facility] on 05-24-2025 WBC (Bld) [#/Vol] 8.1 10*3/uL 4.4-11.0 [place] CNPNon 05-19-2025 [facility]N [facility]N Normal [facility] Absolute lymphocyte countOrd ered By: [facility] on 04-26-2025 Lymphocytes Auto (Unsp spec) [#/Vol] 1.96 10*3/uL 0.83-4.51 [facility] Absolute neutrophil countOrd ered By: [facility] on 04-26-2025 Neutrophils (Bld) [#/Vol] 8.8 10*3/uL High 2.0-7.7 [facility] Automated lymphocyte count a s percentage of total leukocytesOrdered By: [facility] on 04-26-2025 Lymphocytes/100 WBC Auto (Unsp spec) 16.7 % Low 19-41 [facility] Basophil percentageOrdered B y: [facility] on 04-26-2025 Basophils/100 WBC (Bld) 0.4 % 0-1 [facility] Eosinophil percentageOrdered By: [facility] on 04-26-2025 Eosinophils/100 WBC (Bld) 0.3 % 0-5 [facility] Erythrocyte distribution wid th ratioOrdered By: [facility] on 04-26-2025 Erythrocyte distribution width (RBC) [Ratio] 13.9 % 11.6-14.6 [facility] Erythrocyte distribution wid th standard deviationOrdered By: [facility] on 04-26-2025 Erythrocyte distribution width (RBC) [Ratio] 44.7 fl High 35.1-43.9 [facility] Hematocrit Auto (Bld) [Volum e fraction]Ordered By: [facility] on 04-26-2025 Hematocrit (Bld) [Volume fraction] 37.6 % 37-47 [facility] Hemoglobin measurementOrdere d By: [facility] on 04-26-2025 Hemoglobin (Bld) [Mass/Vol] 12.6 g/dL 12.0-15.0 [facility] Immature granulocytes/100 WB C Auto (Bld)Ordered By: [facility] on 04-26-2025 Immature granulocytes/100 WBC (Bld) 0.500 % 0.0-0.9 [facility] Comment on above: IG% - Immature Granu locytes (promyelocytes, myelocytes and metamyelocytes) > 1% indicates that a LEFT SHIFT is Present. MCV (mean corpuscular volume ) determinationOrdered By: [facility] on 04-26-2025 MCV (RBC) [Entitic vol] 88.1 fL 81-99 [facility] Mean corpuscular hemoglobin (MCH) determinationOrdered By: [facility] on 04-26-2025 MCH (RBC) [Entitic mass] 29.5 pg 27.0-32.0 [facility] Mean corpuscular hemoglobin concentration (MCHC) determinationOrdered By: [facility] on 04-26-2025 MCHC (RBC) [Mass/Vol] 33.5 g/dL 32-36 [facility] Mean platelet volume determi nationOrdered By: [facility] on 04-26-2025 Platelet mean volume (Bld) [Entitic vol] 10.9 fL 6.2-12.0 [facility] Monocyte percentageOrdered B y: [facility] on 04-26-2025 Monocytes/100 WBC (Bld) 7.3 % 0-10 [facility] Neutrophil percentageOrdered By: [facility] on 04-26-2025 Neutrophils/100 WBC (Bld) 74.8 % High 47-70 [facility] Nucleated red blood cell per centageOrdered By: [facility] on 04-26-2025 Nucleated RBC/100 WBC (Bld) [Ratio] 0 % 0-5 [facility] Platelet countOrdered By: [facility] on 04-26-2025 Platelets (Bld) [#/Vol] 193 10*3/uL 150-450 [facility] RBC Auto (Bld) [#/Vol]Ordere d By: [facility] on 04-26-2025 RBC (Bld) [#/Vol] 4.27 10*6/uL 4.2-5.4 [facility] White blood cell (WBC) count Ordered By: [facility] on 04-26-2025 WBC (Bld) [#/Vol] 11.7 10*3/uL High 4.4-11.0 [facility] Anion gap in Serum or Plasma Ordered By: Aleksandar Jones on 04-11-2025 Anion gap [Moles/Vol] 12 mmol/L -15 [facility] BUN/creatinine ratioOrdered By: Aleksandar Jones on 04-11-2025 Urea nitrogen/Creatinine [Mass ratio] 19.6 mg/mg 10-20 [facility] Carbon dioxide, total [Moles /volume] in Central venous bloodOrdered By: Aleksandar Jones on 04-11-2025 CO2 [Moles/Vol] 25.0 mmol/L 21.0-32.0 [facility] Chloride assayOrdered By: Julio Cesar Jones on 04-11-2025 Chloride [Moles/Vol] 92 mmol/L Low 98-108 [facility] Glomerular filtration rate ( GFR) estimation/1.73 sq m using serum, plasma, or whole bOrdered By: Aleksandar Jones on 04-11-2025 GFR/1.73 sq M.predicted among non-blacks MDRD (S/P/Bld) [Vol rate/Area] 104 mL/min/{1.73_m2} >60 [facility] Comment on above: mL/min/1.73m2 CKD-EP I Creatinine Equation (2020) Potassium measurement (mass/ volume)Ordered By: Aleksandar Jones on 04-11-2025 Potassium (Unsp spec) [Mass/Vol] 4.4 mmol/L 3.3-5.1 [facility] Serum creatinine measurement (mass/volume)Ordered By: Aleksandar Jones on 04-11-2025 Creatinine [Mass/Vol] 0.56 mg/dL Low 0.70-1.20 [facility] Serum glucose measurement (m ass/volume)Ordered By: Aleksandar Jones on 04-11-2025 Glucose [Mass/Vol] 88 mg/dL 70-99 [place] Serum or plasma calcium lawrence urement (mass/volume)Ordered By: Aleksandar Jones on 04-11-2025 Calcium [Mass/Vol] 9.7 mg/dL 7.6-11.0 [place] Serum or plasma urea nitroge n measurement (mass/volume)Ordered By: Aleksandar Jones on 04-11-2025 Urea nitrogen [Mass/Vol] 11 mg/dL -19 [facility] Sodium levelOrdered By: Jeancarlos Jones on 04-11-2025 Sodium [Moles/Vol] 129 mmol/L Low 133-145 [place] CNOVon 04-04-2025 CNOV Normal [facility] Urine Cultureon 03-31-2025 [facility] Mixed Gram Positive Organisms [place] Count 11,000-25,000 MIXC Mixed contaminants. Submit a new specimen if indicated. Normal [facility] Comment on above: Performed By: #### L 500.4050, L501.4020, L501.2450, L100.0500 #### [facility] [address] [place], [place], [address] Bilirub Conj SerPl-mCncon Bilirubin.conjugated [Mass/Vol] 0.2 mg/dL Normal <0.3 [facility] Comment on above: Order Comment: Speci men Type: BLOOD SPECIMENOrdering Facility: [facility] Address: [address] [place] [address] Performed By: #### 3 3762-6, 08831-7, 99720-3 ####[facility] LABCLIA [id number] [place] [address] [place] CBC W/Diff, Automatedon 03-13 Absolute Neut 5.8 X10 3/uL Normal 2.0-7.7 [facility] Comment on above: Order Comment: 135 Performed By: #### L 500.4050, L501.4020, L501.2450, L100.0500 #### [facility] [address] [place], [address] CNOVon 03-29-2025 CNOV Normal [facility] Comprehensive metabolic 2000 panelon 03-29-2025 Albumin [Mass/Vol] 4.5 g/dL Normal 3.9-4.9 [facility] Comment on above: Order Comment: Speci men Type: BLOOD SPECIMENOrdering Facility: [facility] Address: [address] [place] [address] Performed By: #### 3 3762-6, 61338-5, 74054-9 ####[facility] LABCLIA [id number] [place] [address] [place] ALP [Catalytic activity/Vol] 119 U/L Normal 34-123 [facility] Comment on above: Order Comment: Speci men Type: BLOOD SPECIMENOrdering Facility: [facility] Address: [address] [place] [address] Performed By: #### 3 3762-6, 41919-6, 54277-4 ####[facility] LABCLIA [id number] [facility] [place] [id number] [place] ALT [Catalytic activity/Vol] 35 U/L Normal 7-38 [facility] Comment on above: Order Comment: Speci men Type: BLOOD SPECIMENOrdering Facility: [facility] Address: [address] [place] [address] Performed By: #### 3 3762-6, 42718-4, 48957-8 ####[facility] LABCLIA [id number] [place] [address] [place] Anion gap [Moles/Vol] 13 mmol/L Normal 8-15 [facility] Comment on above: Order Comment: Speci men Type: BLOOD SPECIMENOrdering Facility: [facility] Address: [address] [place] [address] Performed By: #### 3 3762-6, 12144-5, 49381-4 ####[facility] LABCLIA [id number] [place] [id number] [place] AST [Catalytic activity/Vol] 21 U/L Normal 13-35 [facility] Comment on above: Order Comment: Speci men Type: BLOOD SPECIMENOrdering Facility: [facility] Address: [address] [place] [address] Performed By: #### 3 3762-6, 72497-2, 43139-9 ####[facility] LABCLIA [id number] [address] [address] [place] Bilirubin [Mass/Vol] 0.4 mg/dL Normal 0.2-1.3 [facility] Comment on above: Order Comment: Speci men Type: BLOOD SPECIMENOrdering Facility: [facility] Address: [address] [place], [place] [address] Performed By: #### 3 3762-6, 26126-3, 39440-6 ####[facility] LABCLIA [id number] [address] [address] [place] Calcium [Mass/Vol] 9.6 mg/dL Normal 8.5-10.2 [facility] Comment on above: Order Comment: Speci men Type: BLOOD SPECIMENOrdering Facility: [facility] Address: [address] [place], [place] [address] Performed By: #### 3 3762-6, 96945-8, 35311-3 ####[facility] LABCLIA [id number] [place] [id number] [place] Chloride [Moles/Vol] 95 mmol/L Low 98-107 [facility] Comment on above: Order Comment: Speci men Type: BLOOD SPECIMENOrdering Facility: [facility] Address: [address] [place], [place] [address] Performed By: #### 3 3762-6, 51314-2, 65708-0 ####[facility] LABCLIA [id number] [place] [id number] [place] CO2 [Moles/Vol] 23 mmol/L Normal 22-30 [facility] Comment on above: Order Comment: Speci men Type: BLOOD SPECIMENOrdering Facility: [facility] Address: [address] [place], [place] [address] Performed By: #### 3 3762-6, 45497-3, 06685-9 ####[facility] LABCLIA [id number] [address] [address] [place] Creatinine [Mass/Vol] 0.51 mg/dL Low 0.58-0.96 [facility] Comment on above: Order Comment: Speci men Type: BLOOD SPECIMENOrdering Facility: [facility] Address: [address] [place] [address] Performed By: #### 3 3762-6, 80779-2, 80754-7 ####[facility] LABIA [id number] [place] [address] [place] Creatinine and Glomerular filtration rate.predicted panel (S/P/Bld) 106 mL/min/1.73m??? Normal >=60 [facility] Comment on above: Order Comment: Rand gonzalez Type: BLOOD SPECIMENOrdering Facility: [facility] Address: [address] [place] [address] Result Comment: Gia mated Glomerular Filtration Rate [...] actual GFR. Performed By: #### 3 3762-6, 89883-6, 52194-3 ####[facility] LABIA [id number] [place] [id number] [place] Glucose [Mass/Vol] 182 mg/dL High 74-99 [facility] Comment on above: Order Comment: Rand gonzalez Type: BLOOD SPECIMENOrdering Facility: [facility] Address: [address] [place] [address] Result Comment: The [place] Diabetes Association (ADA) provides guidance for cutoff [...] Standards of Medical Care in Diabetes 2016, [place] [employer] Association. Diabetes Care. 2016.39(Suppl 1). Performed By: #### 3 3762-6, 04999-4, 75732-4 ####[facility] LABCLIA [id number] [address] [address] [place] Potassium [Moles/Vol] 4.4 mmol/L Normal 3.7-5.1 [facility] Comment on above: Order Comment: Speci men Type: BLOOD SPECIMENOrdering Facility: [facility] Address: [address] [place] [address] Performed By: #### 3 3762-6, 75327-5, 72059-6 ####[facility] LABIA [id number] [address] [address] [place] Protein [Mass/Vol] 7.8 g/dL Normal 6.3-8.0 [facility] Comment on above: Order Comment: Speci men Type: BLOOD SPECIMENOrdering Facility: [facility] Address: [address] [place] [address] Performed By: #### 3 3762-6, 43477-9, 99794-3 ####[facility] LABIA [id number] [address] [address] [place] Sodium [Moles/Vol] 131 mmol/L Low 136-144 [facility] Comment on above: Order Comment: Speci men Type: BLOOD SPECIMENOrdering Facility: [facility] Address: [address] [place], [place] [address] Performed By: #### 3 3762-6, 65288-3, 14433-9 ####[facility] LABIA [id number] [address] [address] [place] Urea nitrogen [Mass/Vol] 10 mg/dL Normal 7-21 [facility] Comment on above: Order Comment: Speci men Type: BLOOD SPECIMENOrdering Facility: [facility] Address: [address] [place], [place] [address] Performed By: #### 3 3762-6, 03177-9, 64618-9 ####[facility] LABCLIA [id number] [address] [address] [place] HBV DNA Qn (S)on 03-29-2025 HBV DNA LUIS M+probe Ql Not detected Normal Not detected [facility] Comment on above: Order Comment: Speci men Type: BLOOD SPECIMENOrdering Facility: [facility] Address: [address] [place] [address] Performed By: #### 1 1258-1 ####[facility] LABCLIA [id number] [address] [place] [address] [place] HBV core Ab Ser Qlon 025 HBV core Ab Ql (S) Negative Normal Negative [facility] Comment on above: Order Comment: Rand gonzalez Type: BLOOD SPECIMENOrdering Facility: [facility] Address: [address] [place] [address] Result Comment: No e vidence of current or past infection with Hepatitis B virus. Should recent infection be suspected, repeat testing may be considered 3-4 weeks after this draw. Performed By: #### 2 2322-2, 5-3, 32039-4, 94852-8 ####[facility] LABCLIA [id number] [address] [place] [address] [place] HBV core IgM Ser Qlon 2024 HBV core IgM Ql (S) Positive Abnormal Negative [facility] Comment on above: Order Comment: Speci [facility] Type: BLOOD SPECIMENOrdering Facility: [facility] Address: [address] [place] [address] Result Comment: The result suggests recent acute infection with Hepatitis B virus. Non-specific reactivity is not uncommon with this test. HBV core IgM antibody may also remain elevated for extended periods after an acute bout of infection. Clinical correlation required. Performed By: #### 2 2322-2, 5195-3, 53757-0, 08394-1 ####[facility] LABCLIA [id number] [address] [place] [address] [place] HBV surface Ab Ql (S)on 03-13 HBV surface Ab Qn (S) <8.00 Normal [facility] Comment on above: Order Comment: Speci men Type: BLOOD SPECIMENOrdering Facility: [facility] Address: [address] [place] [address] Result Comment: <8 m IU/mL: No serological evidence of immunity to Hepatitis B Virus.>/= 8 to <12 mIU/mL: No serological evidence of immunity to Hepatitis B Virus.>/= 12 mIU/mL: Consistent with serological evidence of immunity to Hepatitis B Virus. Performed By: #### 2 2322-2, 5195-3, 18823-6, 15830-3 ####[facility] LABCLIA [id number] [address] [place] HBV surface Ab Ser Qlon 03-13 HBV surface Ab Ql (S) Negative Normal [facility] Comment on above: Order Comment: Speci men Type: BLOOD SPECIMENOrdering Facility: [facility] Address: [address] [place] [address] Result Comment: No s erological evidence of immunity to Hepatitis B Virus. Performed By: #### 2 2322-2, 5195-3, 44624-8, 87533-1 ####[facility] LABCLIA [id number] [place] [address] [place] HBV surface Ag Ser Qlon 03-13 HBV surface Ag Ql (S) Negative Normal Negative [facility] Comment on above: Order Comment: Speci men Type: BLOOD SPECIMENOrdering Facility: [facility] Address: [address] [place] [address] Performed By: #### 2 2322-2, 5195-3, 24135-0, 01278-4 ####[facility] LABCLIA [id number] [place] [address] [place] HbA1c (Bld)on 03-29-2025 Average glucose Estimated from glycated hemoglobin (Bld) [Mass/Vol] 140 mg/dL [facility] Comment on above: eAG: (Estimated aver age glucose) is a calculated value from HgbA1c and is [employer] products sales representative of the average blood glucose level in the last 2-3 month period. HbA1c (Bld) [Mass fraction] 6.5 % High 4.3 - 5.6 % [facility] Comment on above: [place] Diabetes As sociation guidelines indicate that patients with HgbA1c in the range 5.7-6.4% are at increased risk for development of diabetes, and intervention by lifestyle modification may be beneficial. HgbA1c greater or equal to 6.5% is considered diagnostic of diabetes. Interpretation and review of laboratory results Abnormal [facility] Average glucose Estimated from glycated hemoglobin (Bld) [Mass/Vol] 140 mg/dL Normal [facility] Comment on above: Order Comment: Rand gonzalez Type: BLOOD SPECIMENOrdering Facility: [facility] Address: [address] [place] [address] Result Comment: eAG: (Estimated average glucose) is a calculated value from HgbA1c and is plastic products sales representative of the average blood glucose level in the last 2-3 month period. Performed By: #### 5 5454-3 ####[facility] LABCLIA [id number] [place] [address] [place] HbA1c (Bld) [Mass fraction] 6.5 % High 4.3-5.6 [facility] Comment on above: Order Comment: Rand gonzalez Type: BLOOD SPECIMENOrdering Facility: [facility] Address: [address] [place] [address] Result Comment: [place] Diabetes Association guidelines indicate that patients with HgbA1c in the range 5.7-6.4% are at increased risk for development of diabetes, and intervention by lifestyle modification may be beneficial. HgbA1c greater or equal to 6.5% is considered diagnostic of diabetes. Performed By: #### 5 5454-3 ####[facility] LABCLIA [id number] [place] [address] [place] NT PRO BNPon 03-29-2025 Natriuretic peptide.B prohormone N-Terminal [Mass/Vol] pg/mL [facility] - 125 pg/mL [facility] NT-proBNP [facility]Pl[facility]29 Natriuretic peptide.B prohormone N-Terminal [Mass/Vol] <36 Normal <125 [facility] Comment on above: Order Comment: Speci men Type: BLOOD SPECIMENOrdering Facility: [facility] Address: [address] [place] [address] Performed By: #### 3 3762-6, 97470-7, 87790-0 ####[facility] LABCLIA [id number] [place] [address] [place] Natriuretic peptide.B prohor shade N-Terminal [Mass/Vol]on 03-29-2025 Interpretation and review of laboratory results Normal [facility] Urinalysis, Completeon 03-29 EPI,TRANSITION 0-5 SEEN Normal 0-5 [facility] Comment on above: Order Comment: CLEAN CATCH Performed By: #### L 500.4050, L501.4020, L501.2450, L100.0500 #### [facility] [address] [place], [address] BACTERIA 0 SEEN Normal None Seen [facility] Comment on above: Order Comment: CLEAN CATCH Performed By: #### L 500.4050, L501.4020, L501.2450, L100.0500 #### [facility] [address] [place], [address] EPI,SQUAMOUS 0 SEEN Normal 5-10 [facility] Comment on above: Order Comment: CLEAN CATCH Performed By: #### L 500.4050, L501.4020, L501.2450, L100.0500 #### [facility] [address] [place], [address] Mucus Ql (Urine sed) 0 SEEN Normal [facility] Comment on above: Order Comment: CLEAN CATCH Performed By: #### L 500.4050, L501.4020, L501.2450, L100.0500 #### [facility] [address] [place], [address] RBC 0 SEEN Normal 0-5 [facility] Comment on above: Order Comment: CLEAN CATCH Performed By: #### L 500.4050, L501.4020, L501.2450, L100.0500 #### [facility] [address] [place], [address] WBC 0 SEEN Normal 0-5 [facility] Comment on above: Order Comment: CLEAN CATCH Performed By: #### L 500.4050, L501.4020, L501.2450, L100.0500 #### [facility] [address] [place], [address] XR CHEST 2V FRONTAL/LATon XR CHEST 2V FRONTAL/LAT Normal C [facility] XR Chest PA and Lateralon IMPRESSION: No developing abnormality or acute process Sound Art Instructor: MILDRED Transcribe Date/Time: Mar 29 2025 2:38P Dictated by : EUSEBIA MARIN MD This examination was interpreted and the report reviewed and electronically signed by: EUSEBIA MARIN MD on Mar 29 2025 2:39PM [facility] DIVISION OF RADIOLOGY * * *Final [...] soft tissues: Unremarkable. DIVISION OF RADIOLOGY Provider, [facility] Minnie [facility] - 03/29/2025 * * *Final Report* * [...] IMPRESSION: No developing abnormality or acute process Sound Art Instructor: MILDRED Transcribe Date/Time: Mar 29 2025 2:38P Dictated by : EUSEBIA MARIN MD This examination was interpreted and the report reviewed and electronically signed by: EUSEBIA MARIN MD on Mar 29 2025 2:39PM [facility] Radiology Study observation (narrative) Pola etienne [facility] XR Chest PA and LateralOrder ed By: Ccf Provider on 03-29-2025 [facility] Absolute neutrophil countOrd ered By: Aleksandar Jones on 03-28-2025 Neutrophils (Bld) [#/Vol] 5.8 10*3/uL 2.0-7.7 [facility] Anion gap in Serum or Plasma Ordered By: Aleksandar Jones on 03-28-2025 Anion gap [Moles/Vol] 13 mmol/L 02-24 [facility] BUN/creatinine ratioOrdered By: Aleksandar Jones on 03-28-2025 Urea nitrogen/Creatinine [Mass ratio] 29.2 mg/mg High 08-01 [facility] Basic Metabolic Profile (BMP )on 03-28-2025 BUN/CRE 29.2 RATIO High 08-01 [facility] Comment on above: Order Comment: 135 Performed By: #### L 500.4050, L501.4020, L501.2450, L100.0500 #### [facility] Laboratory [facility] [place], [address] Calcium [Mass/Vol] 9.2 mg/dL Normal 7.6-11.0 [place] Comment on above: Order Comment: 135 Performed By: #### L 500.4050, L501.4020, L501.2450, L100.0500 #### [facility] [address] [place], [address] Chloride [Moles/Vol] 96 mmol/L Low 98-108 [facility] Comment on above: Order Comment: 135 Performed By: #### L 500.4050, L501.4020, L501.2450, L100.0500 #### [facility] [address] [place], [address] CO2 [Moles/Vol] 21.0 mmol/L Normal 21.0-32.0 [facility] Comment on above: Order Comment: 135 Performed By: #### L 500.4050, L501.4020, L501.2450, L100.0500 #### [facility] [address] [place], [address] Creatinine [Mass/Vol] 0.48 mg/dL Low 0.70-1.20 [facility] Comment on above: Order Comment: 135 Performed By: #### L 500.4050, L501.4020, L501.2450, L100.0500 #### [facility] [address] [place], [address] GAP 13 Normal 5-15 [facility] Comment on above: Order Comment: 135 Performed By: #### L 500.4050, L501.4020, L501.2450, L100.0500 #### [facility] [address] [place], [address] GFR/1.73 sq M.predicted among non-blacks MDRD (S/P/Bld) [Vol rate/Area] 108 mL/min/{1.73_m2} Normal >60 [facility] Comment on above: Order Comment: 135 Result Comment: mL/m in/1.73m2 CKD-EPI Creatinine Equation (2020) Performed By: #### L 500.4050, L501.4020, L501.2450, L100.0500 #### [facility] [address] [place], [address] Glucose [Mass/Vol] 169 mg/dL High 70-99 [place] Comment on above: Order Comment: 135 Performed By: #### L 500.4050, L501.4020, L501.2450, L100.0500 #### [facility] [address] [place], [address] Potassium [Moles/Vol] 4.5 mmol/L Normal 3.3-5.1 [facility] Comment on above: Order Comment: 135 Performed By: #### L 500.4050, L501.4020, L501.2450, L100.0500 #### [facility] [address] [place], [address] Sodium [Moles/Vol] 130 mmol/L Low 133-145 [place] Comment on above: Order Comment: 135 Performed By: #### L 500.4050, L501.4020, L501.2450, L100.0500 #### [facility] [address] [place], [address] Urea nitrogen [Mass/Vol] 14 mg/dL Normal 4-19 [facility] Comment on above: Order Comment: 135 Performed By: #### L 500.4050, L501.4020, L501.2450, L100.0500 #### [facility] [address] [place], [address] Basophil percentageOrdered B y: Aleksandar Jones on 03-28-2025 Basophils/100 WBC (Bld) 0.8 % 0-1 [facility] Bilirubin Test strip Ql (U)O rdered By: Aleksandar Jones on 03-28-2025 Bilirubin Ql (U) Negative Negative [facility] Blood manual differential co mment interpretation (narrative result)Ordered By: Aleksandar Jones on 03-28-2025 Manual differential comment Diego (Bld) [Interp] SCANNED [facility] CBC-Complete Blood Cnt No Di ffon 03-28-2025 Erythrocyte distribution width (RBC) [Ratio] 13.8 % Normal 11.6-14.6 [facility] Comment on above: Order Comment: 135 Performed By: #### L 500.4050, L501.4020, L501.2450, L100.0500 #### [facility] [address] [place], [address] Hematocrit (Bld) [Volume fraction] 38.1 % Normal 37-47 [facility] Comment on above: Order Comment: 135 Performed By: #### L 500.4050, L501.4020, L501.2450, L100.0500 #### [facility] [address] [place], [address] Hemoglobin (Bld) [Mass/Vol] 12.8 g/dL Normal 12.0-15.0 [facility] Comment on above: Order Comment: 135 Performed By: #### L 500.4050, L501.4020, L501.2450, L100.0500 #### [facility] [address] [place], [address] MCH (RBC) [Entitic mass] 29.3 pg Normal 27.0-32.0 [facility] Comment on above: Order Comment: 135 Performed By: #### L 500.4050, L501.4020, L501.2450, L100.0500 #### [facility] [address] [place], [address] MCHC (RBC) [Mass/Vol] 33.6 g/dL Normal 32-36 [facility] Comment on above: Order Comment: 135 Performed By: #### L 500.4050, L501.4020, L501.2450, L100.0500 #### [facility] [address] [place], [address] MCV (RBC) [Entitic vol] 87.2 fL Normal 81-99 [facility] Comment on above: Order Comment: 135 Performed By: #### L 500.4050, L501.4020, L501.2450, L100.0500 #### [facility] [address] [place], [address] Platelet mean volume (Bld) [Entitic vol] 11.2 fL Normal 6.2-12.0 [facility] Comment on above: Order Comment: 135 Performed By: #### L 500.4050, L501.4020, L501.2450, L100.0500 #### [facility] [address] [place], [address] Platelets (Bld) [#/Vol] 198 10*3/uL Normal 150-450 [facility] Comment on above: Order Comment: 135 Performed By: #### L 500.4050, L501.4020, L501.2450, L100.0500 #### [facility] [address] [place], [address] RBC (Bld) [#/Vol] 4.37 10*6/uL Normal 4.2-5.4 [facility] Comment on above: Order Comment: 135 Performed By: #### L 500.4050, L501.4020, L501.2450, L100.0500 #### [facility] [address] [place], [address] RDW SD 43.8 fl Normal 35.1-43.9 [facility] Comment on above: Order Comment: 135 Performed By: #### L 500.4050, L501.4020, L501.2450, L100.0500 #### [facility] [address] [place], [address] WBC (Bld) [#/Vol] 8.5 10*3/uL Normal 4.4-11.0 [place] Comment on above: Order Comment: 135 Performed By: #### L 500.4050, L501.4020, L501.2450, L100.0500 #### [facility] [address] [place], [address] Carbon dioxide, total [Moles /volume] in Central venous bloodOrdered By: Aleksandar Jones on 03-28-2025 CO2 [Moles/Vol] 21.0 mmol/L 21.0-32.0 [facility] Chloride assayOrdered By: Julio Cesar Jones on 03-28-2025 Chloride [Moles/Vol] 96 mmol/L Low 98-108 [facility] Eosinophil %Ordered By: Jeancarlos Jones on 03-28-2025 Eosinophils/100 WBC (Bld) 0.4 % 0-5 [facility] Erythrocyte distribution wid th ratioOrdered By: Aleksandar Jones on 03-28-2025 Erythrocyte distribution width (RBC) [Ratio] 13.8 % 11.6-14.6 [facility] Erythrocyte distribution wid th standard deviationOrdered By: Aleksandar Jones on 03-28-2025 Erythrocyte distribution width (RBC) [Ratio] 43.8 fl 35.1-43.9 [facility] Glomerular filtration rate ( GFR) estimation/1.73 sq m using serum, plasma, or whole bOrdered By: Aleksandar Jones on 03-28-2025 GFR/1.73 sq M.predicted among non-blacks MDRD (S/P/Bld) [Vol rate/Area] 108 mL/min/{1.73_m2} >60 [facility] Comment on above: mL/min/1.73m2 CKD-EP I Creatinine Equation (2020) Hematocrit Auto (Bld) [Volum e fraction]Ordered By: Aleksandar Jones on 03-28-2025 Hematocrit (Bld) [Volume fraction] 38.1 % 37-47 [facility] Hemoglobin measurementOrdere d By: Aleksandar Jones on 03-28-2025 Hemoglobin (Bld) [Mass/Vol] 12.8 g/dL 12.0-15.0 [facility] Immature granulocyte percent ageOrdered By: Aleksandar Jones on 03-28-2025 Immature granulocytes/100 WBC (Bld) 0.600 % 0.0-0.9 [facility] Comment on above: IG% - Immature Granu locytes (promyelocytes, myelocytes and metamyelocytes) > 1% indicates that a LEFT SHIFT is Present. Ketones Test strip Ql (U)Ord ered By: Aleksandar Jones on 03-28-2025 Ketones Ql (U) Negative Negative [facility] Lymphocyte %Ordered By: Jeancarlos Jones on 03-28-2025 Lymphocytes/100 WBC (Bld) 22.2 % 19-41 [facility] MCV (mean corpuscular volume ) determinationOrdered By: Aleksandar Jones on 03-28-2025 MCV (RBC) [Entitic vol] 87.2 fL 81-99 [facility] Mean corpuscular hemoglobin (MCH) determinationOrdered By: Aleksandar Jones on 03-28-2025 MCH (RBC) [Entitic mass] 29.3 pg 27.0-32.0 [facility] Mean corpuscular hemoglobin concentration (MCHC) determinationOrdered By: Aleksandar Jones on 03-28-2025 MCHC (RBC) [Mass/Vol] 33.6 g/dL 32-36 [facility] Mean platelet volume determi nationOrdered By: Aleksandar Jones on 03-28-2025 Platelet mean volume (Bld) [Entitic vol] 11.2 fL 6.2-12.0 [facility] Microscopic analysis of urin e for red blood cells (RBC)Ordered By: Aleksandar Jones on 03-28-2025 Microscopic analysis of urine for red blood cells (RBC) 0 SEEN /hpf 0-5 [facility] Monocyte percentageOrdered B y: Aleksandar Jones on 03-28-2025 Monocytes/100 WBC (Bld) 7.9 % 0-10 [facility] Mucus LM Ql (Urine sed)Order ed By: Aleksandar Jones on 03-28-2025 Mucus Ql (Urine sed) 0 SEEN /hpf [facility] Neutrophil %Ordered By: Jeancarlos Jones on 03-28-2025 Neutrophils/100 WBC (Bld) 68.1 % 47-70 [facility] Nitrite Test strip Ql (U)Ord ered By: Aleksandar Jones on 03-28-2025 Nitrite Ql (U) Negative Negative [facility] Platelet countOrdered By: Julio Cesar Jones on 03-28-2025 Platelets (Bld) [#/Vol] 198 10*3/uL 150-450 [facility] Potassium measurement (mass/ volume)Ordered By: Aleksandar Jones on 03-28-2025 Potassium (Unsp spec) [Mass/Vol] 4.5 mmol/L 3.3-5.1 [facility] Protein Test strip Ql (U)Ord ered By: Aleksandar Jones on 03-28-2025 Protein Ql (U) 15 mg/dl High Negative [facility] RBC Auto (Bld) [#/Vol]Ordere d By: Aleksandar Jones on 03-28-2025 RBC (Bld) [#/Vol] 4.37 10*6/uL 4.2-5.4 [facility] Serum creatinine measurement (mass/volume)Ordered By: Aleksandar Jones on 03-28-2025 Creatinine [Mass/Vol] 0.48 mg/dL Low 0.70-1.20 [facility] Serum glucose measurement (m ass/volume)Ordered By: Aleksandar Jones on 03-28-2025 Glucose [Mass/Vol] 169 mg/dL High 70-99 [place] Serum or plasma calcium lawrence urement (mass/volume)Ordered By: Aleksandar Jones on 03-28-2025 Calcium [Mass/Vol] 9.2 mg/dL 7.6-11.0 [place] Serum or plasma urea nitroge n measurement (mass/volume)Ordered By: Aleksandar Jones on 03-28-2025 Urea nitrogen [Mass/Vol] 14 mg/dL 4-19 [facility] Sodium levelOrdered By: Jeancarlos Jones on 03-28-2025 Sodium [Moles/Vol] 130 mmol/L Low 133-145 [place] Squamous epithelial cells de tection in urine sediment by light microscopyOrdered By: Aleksandar Jones on 03-28-2025 Epithelial cells.squamous LM Ql (Urine sed) 0 SEEN /hpf 5-10 [facility] Transitional cells detection in urine sediment by light microscopyOrdered By: Aleksandar Jones on 03-28-2025 Transitional cells LM Ql (Urine sed) 0-5 SEEN /hpf 0-5 [facility] Urine clarityOrdered By: Guillaume Jones on 03-28-2025 Clarity (U) Clear Clear [facility] Urine color determinationOrd ered By: Aleksandar Jones on 03-28-2025 Color (U) Yellow Yellow [facility] Urine cultureOrdered By: Guillaume Jones on 03-28-2025 Bacteria identified Cx Nom (U) Positive Abnormal [facility] Urine glucose detectionOrder ed By: Aleksandar Jones on 03-28-2025 Glucose Ql (U) 1000 mg/dl High Normal [facility] Urine leukocyte esterase det ection by dipstickOrdered By: Aleksandar Jones on 03-28-2025 Leukocyte esterase Test strip Ql (U) Negative Negative [facility] Urine pHOrdered By: Aleksandar Jones on 03-28-2025 pH (U) 6.5 [pH] 5.0 - 8.0 [facility] Urine sediment bacteria coun t by microscopy (number/high power field)Ordered By: Aleksandar Jones on 03-28-2025 Bacteria LM.HPF (Urine sed) [#/Area] 0 /[HPF] None Seen [facility] Urine specific gravity measu rementOrdered By: Aleksandar Jones on 03-28-2025 Specific gravity (U) [Rel density] 1.010 1.002-1.030 [facility] Urine urobilinogen measureme ntOrdered By: Aleksandar Jones on 03-28-2025 Urobilinogen Ql (U) Normal mg/dl Normal [facility] White blood cell (WBC) count Ordered By: Aleksandar Jones on 03-28-2025 WBC (Bld) [#/Vol] 8.5 10*3/uL 4.4-11.0 [place] White blood cell countOrdere d By: Aleksandar Jones on 03-28-2025 White blood cell count 0 SEEN /hpf 0-5 [facility] CNPNon 03-14-2025 CNPN Normal [facility] Absolute lymphocyte countOrd ered By: [facility] on 03-01-2025 Lymphocytes Auto (Unsp spec) [#/Vol] 1.91 10*3/uL 0.83-4.51 [facility] Absolute neutrophil countOrd ered By: [facility] on 03-01-2025 Neutrophils (Bld) [#/Vol] 9.8 10*3/uL High 2.0-7.7 [facility] Automated lymphocyte count a s percentage of total leukocytesOrdered By: [facility] on 03-01-2025 Lymphocytes/100 WBC Auto (Unsp spec) 15.0 % Low 19-41 [facility] Basophil percentageOrdered B y: [facility] on 03-01-2025 Basophils/100 WBC (Bld) 0.4 % 0-1 [facility] CBC W/Diff, Automatedon 02-11 0-2024 Absolute Lymph 1.91 X10 3/uL Normal 0.83-4.51 [facility] Comment on above: Performed By: #### L 500.2500, L100.0100 #### [facility] Laboratory [address] [place], [address] Absolute Neut 9.8 X10 3/uL High 2.0-7.7 [facility] Comment on above: Performed By: #### L 500.2500, L100.0100 #### [facility] [address] [place], [address] Basophils/100 WBC (Bld) 0.4 % Normal 0-1 [facility] Comment on above: Performed By: #### L 500.2500, L100.0100 #### [facility] [address] [place], [address] Eosinophils/100 WBC (Bld) 0.2 % Normal 0-5 [facility] Comment on above: Performed By: #### L 500.2500, L100.0100 #### [facility] [address] [place], [address] Erythrocyte distribution width (RBC) [Ratio] 14.1 % Normal 11.6-14.6 [facility] Comment on above: Performed By: #### L 500.2500, L100.0100 #### [facility] [address] [place], [address] Hematocrit (Bld) [Volume fraction] 39.9 % Normal 37-47 [facility] Comment on above: Performed By: #### L 500.2500, L100.0100 #### [facility] [address] [place], [address] Hemoglobin (Bld) [Mass/Vol] 13.4 g/dL Normal 12.0-15.0 [facility] Comment on above: Performed By: #### L 500.2500, L100.0100 #### [facility] [address] [place], [address] IG% 0.600 Normal 0.0-0.9 [facility] Comment on above: Result Comment: IG% - Immature Granulocytes (promyelocytes, myelocytes and metamyelocytes) > 1% indicates that a LEFT SHIFT is Present. Performed By: #### L 500.2500, L100.0100 #### [facility] [address] [place], [address] Lymphocytes/100 WBC (Bld) 15.0 % Low 19-41 [facility] Comment on above: Performed By: #### L 500.2500, L100.0100 #### [facility] [address] [place], [address] MCH (RBC) [Entitic mass] 29.5 pg Normal 27.0-32.0 [facility] Comment on above: Performed By: #### L 500.2500, L100.0100 #### [facility] [address] [place], [address] MCHC (RBC) [Mass/Vol] 33.6 g/dL Normal 32-36 [facility] Comment on above: Performed By: #### L 500.2500, L100.0100 #### [facility] [address] [place], [address] MCV (RBC) [Entitic vol] 87.7 fL Normal 81-99 [facility] Comment on above: Performed By: #### L 500.2500, L100.0100 #### [facility] [address] [place], [address] Monocytes/100 WBC (Bld) 6.6 % Normal 0-10 [facility] Comment on above: Performed By: #### L 500.2500, L100.0100 #### [facility] [address] [place], [address] Neutrophils/100 WBC (Bld) 77.2 % High 47-70 [facility] Comment on above: Performed By: #### L 500.2500, L100.0100 #### [facility] [address] [place], [address] Nucleated RBC (Bld) [#/Vol] 0 10*3/uL Normal 0-5 [facility] Comment on above: Performed By: #### L 500.2500, L100.0100 #### [facility] [address] [place], [address] Platelet mean volume (Bld) [Entitic vol] 10.9 fL Normal 6.2-12.0 [facility] Comment on above: Performed By: #### L 500.2500, L100.0100 #### [facility] [address] [place], [address] Platelets (Bld) [#/Vol] 212 10*3/uL Normal 150-450 [facility] Comment on above: Performed By: #### L 500.2500, L100.0100 #### [facility] [address] [place], [address] RBC (Bld) [#/Vol] 4.55 10*6/uL Normal 4.2-5.4 [facility] Comment on above: Performed By: #### L 500.2500, L100.0100 #### [facility] [address] [place], [address] RDW SD 44.8 fl High 35.1-43.9 [facility] Comment on above: Performed By: #### L 500.2500, L100.0100 #### [facility] [address] [place], [address] WBC (Bld) [#/Vol] 12.7 10*3/uL High 4.4-11.0 [facility] Comment on above: Performed By: #### L 500.2500, L100.0100 #### [facility] [address] [place], [address] CNPNon 03-01-2025 CNPN Normal [facility] Eosinophil percentageOrdered By: [facility] on 03-01-2025 Eosinophils/100 WBC (Bld) 0.2 % 0-5 [facility] Erythrocyte distribution wid th ratioOrdered By: [facility] on 03-01-2025 Erythrocyte distribution width (RBC) [Ratio] 14.1 % 11.6-14.6 [facility] Erythrocyte distribution wid th standard deviationOrdered By: [facility] on 03-01-2025 Erythrocyte distribution width (RBC) [Ratio] 44.8 fl High 35.1-43.9 [facility] Hematocrit Auto (Bld) [Volum e fraction]Ordered By: [facility] on 03-01-2025 Hematocrit (Bld) [Volume fraction] 39.9 % 37-47 [facility] Hemoglobin measurementOrdere d By: [facility] on 03-01-2025 Hemoglobin (Bld) [Mass/Vol] 13.4 g/dL 12.0-15.0 [facility] Immature granulocytes/100 WB C Auto (Bld)Ordered By: [facility] on 03-01-2025 Immature granulocytes/100 WBC (Bld) 0.600 % 0.0-0.9 [facility] Comment on above: IG% - Immature Granu locytes (promyelocytes, myelocytes and metamyelocytes) > 1% indicates that a LEFT SHIFT is Present. MCV (mean corpuscular volume ) determinationOrdered By: [facility] on 03-01-2025 MCV (RBC) [Entitic vol] 87.7 fL 81-99 [facility] Mean corpuscular hemoglobin (MCH) determinationOrdered By: [facility] on 03-01-2025 MCH (RBC) [Entitic mass] 29.5 pg 27.0-32.0 [facility] Mean corpuscular hemoglobin concentration (MCHC) determinationOrdered By: [facility] on 03-01-2025 MCHC (RBC) [Mass/Vol] 33.6 g/dL 32-36 [facility] Mean platelet volume determi nationOrdered By: [facility] on 03-01-2025 Platelet mean volume (Bld) [Entitic vol] 10.9 fL 6.2-12.0 [facility] Monocyte percentageOrdered B y: [facility] on 03-01-2025 Monocytes/100 WBC (Bld) 6.6 % 0-10 [facility] Neutrophil percentageOrdered By: [facility] on 03-01-2025 Neutrophils/100 WBC (Bld) 77.2 % High 47-70 [facility] Nucleated red blood cell per centageOrdered By: [facility] on 03-01-2025 Nucleated RBC/100 WBC (Bld) [Ratio] 0 % 0-5 [facility] Platelet countOrdered By: [facility] on 03-01-2025 Platelets (Bld) [#/Vol] 212 10*3/uL 150-450 [facility] RBC Auto (Bld) [#/Vol]Ordere d By: [facility] on 03-01-2025 RBC (Bld) [#/Vol] 4.55 10*6/uL 4.2-5.4 [facility] White blood cell (WBC) count Ordered By: [facility] on 03-01-2025 WBC (Bld) [#/Vol] 12.7 10*3/uL High 4.4-11.0 [facility] CNPNon 02-25-2025 CNPN Normal [facility] Absolute lymphocyte countOrd ered By: Lorraine Springer on 02-02-2025 Lymphocytes Auto (Unsp spec) [#/Vol] 2.80 10*3/uL 0.83-4.51 [facility] Absolute neutrophil countOrd ered By: Lorraine Springer on 02-02-2025 Neutrophils (Bld) [#/Vol] 6.4 10*3/uL 2.0-7.7 [facility] Automated lymphocyte count a s percentage of total leukocytesOrdered By: Lorraine Springer on 02-02-2025 Lymphocytes/100 WBC Auto (Unsp spec) 27.4 % 19-41 [facility] Basophil percentageOrdered B y: Lorraine Springer on 02-02-2025 Basophils/100 WBC (Bld) 0.5 % 0-1 [facility] CBC W/Diff, Automatedon 01-12 REACTIVE LYMPH RARE Normal [facility] Comment on above: Performed By: #### L 500.2500, L100.0100 #### [facility] Laboratory [address] [place] [address]. [place], [address] Eosinophil percentageOrdered By: Lorraine Springer on 02-02-2025 Eosinophils/100 WBC (Bld) 0.4 % 0-5 [facility] Erythrocyte distribution wid th ratioOrdered By: Lorraine Springer on 02-02-2025 Erythrocyte distribution width (RBC) [Ratio] 13.2 % 11.6-14.6 [facility] Erythrocyte distribution wid th standard deviationOrdered By: Lorraine Springer on 02-02-2025 Erythrocyte distribution width (RBC) [Ratio] 41.5 fl 35.1-43.9 [facility] Hematocrit Auto (Bld) [Volum e fraction]Ordered By: Lorraine Springer on 02-02-2025 Hematocrit (Bld) [Volume fraction] 38.7 % 37-47 [facility] Hemoglobin measurementOrdere d By: Lorraine Springer on 02-02-2025 Hemoglobin (Bld) [Mass/Vol] 12.9 g/dL 12.0-15.0 [facility] Immature granulocytes/100 WB C Auto (Bld)Ordered By: Lorraine Springer on 02-02-2025 Immature granulocytes/100 WBC (Bld) 0.700 % 0.0-0.9 [facility] Comment on above: IG% - Immature Granu locytes (promyelocytes, myelocytes and metamyelocytes) > 1% indicates that a LEFT SHIFT is Present. MCV (mean corpuscular volume ) determinationOrdered By: Lorraine Springer on 02-02-2025 MCV (RBC) [Entitic vol] 86.6 fL 81-99 [facility] Mean corpuscular hemoglobin (MCH) determinationOrdered By: Lorraine Springer on 02-02-2025 MCH (RBC) [Entitic mass] 28.9 pg 27.0-32.0 [facility] Mean corpuscular hemoglobin concentration (MCHC) determinationOrdered By: Lorraine Springer on 02-02-2025 MCHC (RBC) [Mass/Vol] 33.3 g/dL 32-36 [facility] Mean platelet volume determi nationOrdered By: Lorraine Springer on 02-02-2025 Platelet mean volume (Bld) [Entitic vol] 10.3 fL 6.2-12.0 [facility] Monocyte percentageOrdered B y: Lorraine Springer on 02-02-2025 Monocytes/100 WBC (Bld) 8.8 % 0-10 [facility] Neutrophil percentageOrdered By: Lorraine Springer on 02-02-2025 Neutrophils/100 WBC (Bld) 62.2 % 47-70 [facility] Nucleated red blood cell per centageOrdered By: Lorraine Springer on 02-02-2025 Nucleated RBC/100 WBC (Bld) [Ratio] 0 % 0-5 [facility] Platelet countOrdered By: Anastacia Springer on 02-02-2025 Platelets (Bld) [#/Vol] 213 10*3/uL 150-450 [facility] RBC Auto (Bld) [#/Vol]Ordere d By: Lorraine Springer on 02-02-2025 RBC (Bld) [#/Vol] 4.47 10*6/uL 4.2-5.4 [facility] White blood cell (WBC) count Ordered By: Lorraine Springer on 02-02-2025 WBC (Bld) [#/Vol] 10.2 10*3/uL 4.4-11.0 [facility] CNPNon 01-31-2025 CNPN Normal [facility] CNPNon 01-27-2025 CNPN Normal [facility] CNPNon 01-21-2025 CNPN Normal [facility] FRANNY SCREENING W TOMOon 01-19 FRANNY [facility]CREENING W [facility]UG[facility] No Panel Informationon 01-18 IMPRESSION: Hepatic steatosis. Prior cholecystectomy. Sound Art Instructor: MILDRED Transcribe Date/Time: Jan 18 2025 11:43A Dictated by : SABRA BYRD MD This examination was interpreted and the report reviewed and electronically signed by: SABRA BYRD MD on Jan 18 2025 11:44AM [facility] DIVISION OF RADIOLOGY Radiology Study observation (narrative) [facility] No Panel InformationOrdered By: Ccf Provider on 01-18-2025 [facility] US ABD RIGHT UPPER QUADRANTo n 01-18-2025 US ABD RIGHT UPPER QUADRANT Normal [facility] US ABD SPLEEN - NBon 025 * [...] dimension. Ascites: None. DIVISION OF RADIOLOGY Provider, [facility] Minnie [facility] - 01/18/2025 * * *Final Report* * [...] None. IMPRESSION IMPRESSION: Hepatic steatosis. Prior cholecystectomy. Sound Art Instructor: [facility] Transcribe Date/Time: Jan 18 2025 11:43A Dictated by : SABRA BYRD MD This examination was interpreted and the report reviewed and electronically signed by: SABRA BYRD MD on Jan 18 2025 11:44AM EST [facility] US ABD SPLEEN -NBon 01-19-20 25 US ABD SPLEEN -NB Normal [facility] US Abdomen RUQon 01-18-2025 * * [...] dimension. Ascites: None. DIVISION OF RADIOLOGY Provider, Carlos Ann - 01/18/2025 * * *Final Report* * [...] None. IMPRESSION IMPRESSION: Hepatic steatosis. Prior cholecystectomy. Sound Art Instructor: [facility] Transcribe Date/Time: Jan 18 2025 11:43A Dictated by : SABRA BYRD MD This examination was interpreted and the report reviewed and electronically signed by: SABRA BYRD MD on Jan 18 2025 11:44AM EST [facility] CNOVon 01-12-2025 CNOV Normal [facility] CNPNon 01-12-2025 CNPN Normal [facility] HBV DNA Qn (S)on 01-12-2025 HBV DNA LUIS M+probe Ql Not detected Not detected [facility] Interpretation and review of laboratory results Normal [facility] melanie HBV is an in v [...] EDTA plasma and 2.4 IU/mL in serum. [facility] HBV core Ab Ql (S)on 025 Interpretation and review of laboratory results Normal [facility] HBV core IgM Ql (S)on 2024 Interpretation and review of laboratory results Abnormal [facility] HBV surface Ab Ql (S)on HBV surface Ab Qn (S) mIU/mL [facility] Comment on above: <8 mIU/mL: No serolo gical evidence of immunity to Hepatitis B Virus. >/= 8 to <12 mIU/mL: No serological evidence of immunity to Hepatitis B Virus. >/= 12 mIU/mL: Consistent with serological evidence of immunity to Hepatitis B Virus. [facility] HBV surface Ag Ql (S)on Interpretation and review of laboratory results Normal [facility] HEPATITIS B CORE ANTIBODY IG 01-12-2025 HBV core IgM Ql (S) Positive Abnormal Negative [facility] Comment on above: The result suggests recent acute infection with Hepatitis B virus. Non-specific reactivity is not uncommon with this test. HBV core IgM antibody may also remain elevated for extended periods after an acute bout of infection. Clinical correlation required. HEPATITIS B CORE ANTIBODY TO Joslyn 01-12-2025 HBV core Ab Ql (S) Negative Negative [facility] Comment on above: No evidence of curre nt or past infection with Hepatitis B virus. Should recent infection be suspected, repeat testing may be considered 3-4 weeks after this draw. HEPATITIS B SURFACE ANTIBODY on 01-12-2025 HBV surface Ab Ql (S) Negative [facility] Comment on above: No serological evide nce of immunity to Hepatitis B Virus. HEPATITIS B SURFACE ANTIGENo n 01-12-2025 HBV surface Ag Ql (S) Negative Negative [facility] Osmolality Uron 01-12-2025 Osmolality (U) [Osmolality] 131 mosm/kg Normal 50-1200 [facility] Comment on above: Order Comment: Speci men Type: URINE SPECIMENOrdering Facility: [facility] Address: [address] [place] [address] Performed By: #### 2 695-5 ####[facility] LABCLIA [id number] [place] Sodium ?Tm Ur-sCncon 025 Sodium Unsp time (U) [Moles/Vol] 32 mmol/L Normal 14-216 [facility] Comment on above: Order Comment: Speci men Type: URINE SPECIMENOrdering Facility: [facility] Address: [address] [place] [address] Performed By: #### 3 5678-2 ####[facility] LABCLIA [id number] [place] [id number] [place] Comprehensive metabolic 2000 panelon 01-11-2025 Albumin [Mass/Vol] 4.7 g/dL Normal 3.9-4.9 [facility] Comment on above: Order Comment: Speci men Type: BLOOD SPECIMENOrdering Facility: [facility] Address: [address] [place] [address] Performed By: #### 2 2322-2, 39556-2, 26491-7, 5195-3, 95347-2 ####[facility] LABCLIA [id number] [place] [id number] [place] ALP [Catalytic activity/Vol] 128 U/L High 34-123 [facility] Comment on above: Order Comment: Speci men Type: BLOOD SPECIMENOrdering Facility: [facility] Address: [address] [place] [address] Performed By: #### 2 2322-2, 02693-9, 45188-4, 5-3, 89118-4 ####[facility] LABCLIA [id number] [place] [id number] [place] ALT [Catalytic activity/Vol] 51 U/L High 7-38 [facility] Comment on above: Order Comment: Speci men Type: BLOOD SPECIMENOrdering Facility: [facility] Address: [address] [place] [address] Performed By: #### 2 2322-2, 34147-6, 78148-9, 5195-3, 71157-8 ####[facility] LABCLIA [id number] [facility] [address] [address] [place] Anion gap [Moles/Vol] 19 mmol/L High 8-15 [facility] Comment on above: Order Comment: Speci men Type: BLOOD SPECIMENOrdering Facility: [facility] Address: [address] [place], [place] [address] Performed By: #### 2 2322-2, 60471-4, 22569-6, 5195-3, 43608-9 ####[facility] LABCLIA [id number] [address] [address] [place] AST [Catalytic activity/Vol] 23 U/L Normal 13-35 [facility] Comment on above: Order Comment: Speci men Type: BLOOD SPECIMENOrdering Facility: [facility] Address: [address] [place], [place] [address] Performed By: #### 2 2322-2, 15860-2, 94868-8, 5195-3, 89538-5 ####[facility] LABCLIA [id number] [address] [address] [place] Bilirubin [Mass/Vol] 0.3 mg/dL Normal 0.2-1.3 [facility] Comment on above: Order Comment: Speci men Type: BLOOD SPECIMENOrdering Facility: [facility] Address: [address] [place], [place] [address] Performed By: #### 2 2322-2, 24151-2, 67227-3, 5195-3, 37466-5 ####[facility] LABCLIA [id number] [address] [address] [place] Calcium [Mass/Vol] 9.4 mg/dL Normal 8.5-10.2 [facility] Comment on above: Order Comment: Speci men Type: BLOOD SPECIMENOrdering Facility: [facility] Address: [address] [place], [place] [address] Performed By: #### 2 2322-2, 41924-3, 50109-9, 5195-3, 54209-0 ####[facility] LABCLIA [id number] [address] [address] [place] Chloride [Moles/Vol] 93 mmol/L Low 98-107 [facility] Comment on above: Order Comment: Speci men Type: BLOOD SPECIMENOrdering Facility: [facility] Address: [address] [place] [address] Performed By: #### 2 2322-2, 66145-9, 76466-6, 5195-3, 91901-6 ####[facility] LABIA [id number] [place] [id number] [place] CO2 [Moles/Vol] 18 mmol/L Low 22-30 [facility] Comment on above: Order Comment: Speci men Type: BLOOD SPECIMENOrdering Facility: [facility] Address: [address] [place] [address] Performed By: #### 2 2322-2, 81899-5, 60847-6, 5-3, 73222-4 ####[facility] LABIA [id number] [place] [id number] [place] Creatinine [Mass/Vol] 0.40 mg/dL Low 0.58-0.96 [facility] Comment on above: Order Comment: Speci men Type: BLOOD SPECIMENOrdering Facility: [facility] Address: [address] [place] [address] Performed By: #### 2 2322-2, 39370-3, 42940-9, 5195-3, 34190-1 ####[facility] LABIA [id number] [place] [id number] [place] Creatinine and Glomerular filtration rate.predicted panel (S/P/Bld) 113 mL/min/1.73m??? Normal >=60 [facility] Comment on above: Order Comment: Speci men Type: BLOOD SPECIMENOrdering Facility: [facility] Address: [address] [place] [address] Result Comment: Gia mated Glomerular Filtration Rate [...] actual GFR. Performed By: #### 2 2322-2, 70941-1, 55908-1, 5-3, 20683-6 ####[facility] LABCLIA [id number] [place] [address] [place] Glucose [Mass/Vol] 155 mg/dL High 74-99 [facility] Comment on above: Order Comment: Rand gonzalez Type: BLOOD SPECIMENOrdering Facility: [facility] Address: [address] [place] [address] Result Comment: The [place] Diabetes Association (ADA) provides guidance for cutoff [...] Standards of Medical Care in Diabetes 2016, [place] [employer]. Diabetes Care. 2016.39(Suppl 1). Performed By: #### 2 2322-2, 24214-2, 29181-9, 5-3, 05598-1 ####[facility] LABCLIA [id number] [place] [id number] [place] Potassium [Moles/Vol] 4.6 mmol/L Normal 3.7-5.1 [facility] Comment on above: Order Comment: Rand gonzalez Type: BLOOD SPECIMENOrdering Facility: [facility] Address: [address] [place] [address] Performed By: #### 2 2322-2, 13653-8, 09448-7, 5194-3, 83062-7 ####[facility] LABCLIA [id number] [facility] [address] [place] [address] [place] Protein [Mass/Vol] 7.4 g/dL Normal 6.3-8.0 [facility] Comment on above: Order Comment: Speci men Type: BLOOD SPECIMENOrdering Facility: [facility] Address: [address] [place], [place] [address] Performed By: #### 2 2322-2, 57412-0, 44850-4, 5194-3, ####[facility] LABCLIA [id number] [address] [place] [address] [place] Sodium [Moles/Vol] 130 mmol/L Low 136-144 [facility] Comment on above: Order Comment: Speci men Type: BLOOD SPECIMENOrdering Facility: [facility] Address: [address] [place], [place] [address] Performed By: #### 2 2322-2, 31933-1, 37883-4, 3, ####[facility] LABCLIA [id number] [address] [place] [address] [place] Urea nitrogen [Mass/Vol] 7 mg/dL Normal 7-21 [facility] Comment on above: Order Comment: Speci men Type: BLOOD SPECIMENOrdering Facility: [facility] Address: [address] [place] [address] Performed By: #### 2 2322-2, 28942-8, 32523-3, 5194-3, ####[facility] LABCLIA [id number] [facility] [address] [place] [address] [place] HBV DNA Qn (S)on 01-11-2025 HBV DNA LUIS M+probe Ql Not detected Normal Not detected [facility] Comment on above: Order Comment: Rand gonzalez Type: BLOOD SPECIMENOrdering Facility: [facility] Address: [address] [place] [address] Performed By: #### 1 1258-1 ####[facility] LABCLIA [id number] [place] [address] [place] HBV core Ab Ser Qlon 025 HBV core Ab Ql (S) Negative Normal Negative [facility] Comment on above: Order Comment: Rand gonzalez Type: BLOOD SPECIMENOrdering Facility: [facility] Address: [address] [place] [address] Result Comment: No e vidence of current or past infection with Hepatitis B virus. Should recent infection be suspected, repeat testing may be considered 3-4 weeks after this draw. Performed By: #### 2 2322-2, 44063-7, 35526-8, 5195-3, 49329-1 ####[facility] LABCLIA [id number] [address] STATES OF [facility] HBV core IgM Ser Qlon 2024 HBV core IgM Ql (S) Positive Abnormal Negative [facility] Comment on above: Order Comment: Rand gonzalez Type: BLOOD SPECIMENOrdering Facility: [facility] Address: [address] [place] [address] Result Comment: The result suggests recent acute infection with Hepatitis B virus. Non-specific reactivity is not uncommon with this test. HBV core IgM antibody may also remain elevated for extended periods after an acute bout of infection. Clinical correlation required. Performed By: #### 2 2322-2, 18090-5, 51043-6, 5-3, 36702-6 ####[facility] LABCLIA [id number] [place] [id number] [place] HBV surface Ab Ql (S)on HBV surface Ab Qn (S) <8.00 Normal [facility] Comment on above: Order Comment: Rand gonzalez Type: BLOOD SPECIMENOrdering Facility: [facility] Address: [address] [place] [address] Result Comment: <8 m IU/mL: No serological evidence of immunity to Hepatitis B Virus.>/= 8 to <12 mIU/mL: No serological evidence of immunity to Hepatitis B Virus.>/= 12 mIU/mL: Consistent with serological evidence of immunity to Hepatitis B Virus. Performed By: #### 2 2322-2, 24559-9, 37042-7, 5-3, 44400-2 ####[facility] LABCLIA [id number] [place] [address] [place] HBV surface Ab Ser Qlon 04-0 HBV surface Ab Ql (S) Negative Normal [facility] Comment on above: Order Comment: Speci men Type: BLOOD SPECIMENOrdering Facility: [facility] Address: [address] [place] [address] Result Comment: No s erological evidence of immunity to Hepatitis B Virus. Performed By: #### 2 2322-2, 13196-6, 38191-4, 5195-3, 42919-4 ####[facility] LABCLIA [id number] [place] [address] [place] HBV surface Ag Ser Qlon 040 HBV surface Ag Ql (S) Negative Normal Negative [facility] Comment on above: Order Comment: Speci men Type: BLOOD SPECIMENOrdering Facility: [facility] Address: [address] [place] [address] Performed By: #### 2 2322-2, 23753-2, 34016-1, 5195-3, 71160-2 ####[facility] LABCLIA [id number] [place] [address] [place] CNPNon 01-05-2025 CNPN Normal [facility] Absolute lymphocyte countOrd ered By: Lorraine Springer on 01-04-2025 Lymphocytes Auto (Unsp spec) [#/Vol] 2.29 10*3/uL 0.83-4.51 [facility] Absolute neutrophil countOrd ered By: Moondonald Hermilodinorah on 01-04-2025 Neutrophils (Bld) [#/Vol] 8.8 10*3/uL High 2.0-7.7 [facility] Automated lymphocyte count a s percentage of total leukocytesOrdered By: Moondonald Hermilodinorah on 01-04-2025 Lymphocytes/100 WBC Auto (Unsp spec) 19.0 % 19-41 [facility] Basophil percentageOrdered B y: Lorraine Hermilodinorah on 01-04-2025 Basophils/100 WBC (Bld) 0.3 % 0-1 [facility] CBC W/Diff, Automatedon 12-12 Absolute Lymph 2.29 X10 3/uL Normal 0.83-4.51 [facility] Comment on above: Performed By: #### L 500.2500, L100.0100 #### [facility] [address] [place], [address] Absolute Neut 8.8 X10 3/uL High 2.0-7.7 [facility] Comment on above: Performed By: #### L 500.2500, L100.0100 #### [facility] [address] [place], [address] Basophils/100 WBC (Bld) 0.3 % Normal 0-1 [facility] Comment on above: Performed By: #### L 500.2500, L100.0100 #### [facility] [address] [place], [address] Eosinophils/100 WBC (Bld) 0.2 % Normal 0-5 [facility] Comment on above: Performed By: #### L 500.2500, L100.0100 #### [facility] [address] [place], [address] Erythrocyte distribution width (RBC) [Ratio] 13.9 % Normal 11.6-14.6 [facility] Comment on above: Performed By: #### L 500.2500, L100.0100 #### [facility] [address] [place], [address] Hematocrit (Bld) [Volume fraction] 39.5 % Normal 37-47 [facility] Comment on above: Performed By: #### L 500.2500, L100.0100 #### [facility] [address] [place], [address] Hemoglobin (Bld) [Mass/Vol] 13.1 g/dL Normal 12.0-15.0 [facility] Comment on above: Performed By: #### L 500.2500, L100.0100 #### [facility] [address] [place], [address] IG% 0.700 Normal 0.0-0.9 [facility] Comment on above: Result Comment: IG% - Immature Granulocytes (promyelocytes, myelocytes and metamyelocytes) > 1% indicates that a LEFT SHIFT is Present. Performed By: #### L 500.2500, L100.0100 #### [facility] [address] [place], [address] Lymphocytes/100 WBC (Bld) 19.0 % Normal 19-41 [facility] Comment on above: Performed By: #### L 500.2500, L100.0100 #### [facility] [address] [place], [address] MCH (RBC) [Entitic mass] 29.1 pg Normal 27.0-32.0 [facility] Comment on above: Performed By: #### L 500.2500, L100.0100 #### [facility] [address] [place], [address] MCHC (RBC) [Mass/Vol] 33.2 g/dL Normal 32-36 [facility] Comment on above: Performed By: #### L 500.2500, L100.0100 #### [facility] [address] [place], [address] MCV (RBC) [Entitic vol] 87.8 fL Normal 81-99 [facility] Comment on above: Performed By: #### L 500.2500, L100.0100 #### [facility] [address] [place], [address] Monocytes/100 WBC (Bld) 6.5 % Normal 0-10 [facility] Comment on above: Performed By: #### L 500.2500, L100.0100 #### [facility] [address] [place], [address] Neutrophils/100 WBC (Bld) 73.3 % High 47-70 [facility] Comment on above: Performed By: #### L 500.2500, L100.0100 #### [facility] [address] [place], [address] Nucleated RBC (Bld) [#/Vol] 0 10*3/uL Normal 0-5 [facility] Comment on above: Performed By: #### L 500.2500, L100.0100 #### [facility] [address] [place], [address] Platelet mean volume (Bld) [Entitic vol] 10.1 fL Normal 6.2-12.0 [facility] Comment on above: Performed By: #### L 500.2500, L100.0100 #### [facility] [address] [place], [address] Platelets (Bld) [#/Vol] 195 10*3/uL Normal 150-450 [facility] Comment on above: Performed By: #### L 500.2500, L100.0100 #### [facility] [address] [place], [address] RBC (Bld) [#/Vol] 4.50 10*6/uL Normal 4.2-5.4 [facility] Comment on above: Performed By: #### L 500.2500, L100.0100 #### [facility] [address] [place], [address] RDW SD 44.7 fl High 35.1-43.9 [facility] Comment on above: Performed By: #### L 500.2500, L100.0100 #### [facility] [address] [place], [address] WBC (Bld) [#/Vol] 12.1 10*3/uL High 4.4-11.0 [facility] Comment on above: Performed By: #### L 500.2500, L100.0100 #### [facility] [address] [place], [address] CNPNon 01-04-2025 CNPN Normal [facility] Eosinophil percentageOrdered By: Lorraine Springer on 01-04-2025 Eosinophils/100 WBC (Bld) 0.2 % 0-5 [facility] Erythrocyte distribution wid th ratioOrdered By: Lorraine Springer on 01-04-2025 Erythrocyte distribution width (RBC) [Ratio] 13.9 % 11.6-14.6 [facility] Erythrocyte distribution wid th standard deviationOrdered By: Lorraine Springer on 01-04-2025 Erythrocyte distribution width (RBC) [Entitic vol] 44.7 fL High 35.1-43.9 [facility] Erythrocyte distribution width (RBC) [Ratio] 44.7 fl High 35.1-43.9 [facility] Hematocrit Auto (Bld) [Volum e fraction]Ordered By: Lorraine Springer on 01-04-2025 Hematocrit (Bld) [Volume fraction] 39.5 % 37-47 [facility] Hemoglobin measurementOrdere d By: Lorraine Springer on 01-04-2025 Hemoglobin (Bld) [Mass/Vol] 13.1 g/dL 12.0-15.0 [facility] Immature granulocytes/100 WB C Auto (Bld)Ordered By: Lorraine Springer on 01-04-2025 Immature granulocytes/100 WBC (Bld) 0.700 % 0.0-0.9 [facility] Comment on above: IG% - Immature Granu locytes (promyelocytes, myelocytes and metamyelocytes) > 1% indicates that a LEFT SHIFT is Present. Lymphocytes Auto (Unsp spec) [#/Vol]Ordered By: Lorraine Springer on 01-04-2025 Lymphocytes (Bld) [#/Vol] 2.29 10*3/uL 0.83-4.51 [facility] Lymphocytes/100 WBC Auto (Un sp spec)Ordered By: Lorraine Springer on 01-04-2025 Lymphocytes/100 WBC (Bld) 19.0 % 19-41 [facility] MCV (mean corpuscular volume ) determinationOrdered By: Lorraine Springer on 01-04-2025 MCV (RBC) [Entitic vol] 87.8 fL 81-99 [facility] Mean corpuscular hemoglobin (MCH) determinationOrdered By: Lorraine Springer on 01-04-2025 MCH (RBC) [Entitic mass] 29.1 pg 27.0-32.0 [facility] Mean corpuscular hemoglobin concentration (MCHC) determinationOrdered By: Lorraine Springer on 01-04-2025 MCHC (RBC) [Mass/Vol] 33.2 g/dL 32-36 [facility] Mean platelet volume determi nationOrdered By: Lorraine Springer on 01-04-2025 Platelet mean volume (Bld) [Entitic vol] 10.1 fL 6.2-12.0 [facility] Monocyte percentageOrdered B y: Lorraine Springer on 01-04-2025 Monocytes/100 WBC (Bld) 6.5 % 0-10 [facility] Neutrophil percentageOrdered By: Lorraine Springer on 01-04-2025 Neutrophils/100 WBC (Bld) 73.3 % High 47-70 [facility] Nucleated red blood cell per centageOrdered By: Lorraine Springer on 01-04-2025 Nucleated RBC/100 WBC (Bld) [Ratio] 0 % 0-5 [facility] Platelet countOrdered By: Anastacia Springer on 01-04-2025 Platelets (Bld) [#/Vol] 195 10*3/uL 150-450 [facility] RBC Auto (Bld) [#/Vol]Ordere d By: Lorraine Springer on 01-04-2025 RBC (Bld) [#/Vol] 4.50 10*6/uL 4.2-5.4 [facility] White blood cell (WBC) count Ordered By: Lorraine Springer on 01-04-2025 WBC (Bld) [#/Vol] 12.1 10*3/uL High 4.4-11.0 [facility] Basic metabolic 2000 panelon 01-03-2025 Anion gap [Moles/Vol] 12 mmol/L Normal 8-15 [facility] Comment on above: Order Comment: Speci men Type: BLOOD SPECIMENOrdering Facility: [facility] Address: [address] [place] [address] Performed By: #### 2 4321-2 ####[facility] LABCLIA [id number] [place] [address] [place] Calcium [Mass/Vol] 9.4 mg/dL Normal 8.5-10.2 [facility] Comment on above: Order Comment: Speci men Type: BLOOD SPECIMENOrdering Facility: [facility] Address: [address] [place] [address] Performed By: #### 2 4321-2 ####[facility] LABCLIA [id number] [place] [address] [place] Chloride [Moles/Vol] 93 mmol/L Low 98-107 [facility] Comment on above: Order Comment: Speci men Type: BLOOD SPECIMENOrdering Facility: [facility] Address: [address] [place] [address] Performed By: #### 2 4321-2 ####[facility] LABCLIA [id number] [place] [address] [place] CO2 [Moles/Vol] 21 mmol/L Low 22-30 [facility] Comment on above: Order Comment: Speci men Type: BLOOD SPECIMENOrdering Facility: [facility] Address: [address] [place] [id number] Performed By: #### 2 4321-2 ####[facility] LABIA [id number] [address] [place] Creatinine [Mass/Vol] 0.46 mg/dL Low 0.58-0.96 [facility] Comment on above: Order Comment: Speci men Type: BLOOD SPECIMENOrdering Facility: [facility] Address: [address] [place] [address] Performed By: #### 2 4321-2 ####[facility] LABIA [id number] [place] [address] [facility] Creatinine and Glomerular filtration rate.predicted panel (S/P/Bld) 109 mL/min/1.73m??? Normal >=60 [facility] Comment on above: Order Comment: Speci men Type: BLOOD SPECIMENOrdering Facility: [facility] Address: [address] [place] [address] Result Comment: Gia mated Glomerular Filtration Rate [...] actual GFR. Performed By: #### 2 4321-2 ####[facility] LABIA [id number] [place] [id number] [place] Glucose [Mass/Vol] 142 mg/dL High 74-99 [facility] Comment on above: Order Comment: Speci men Type: BLOOD SPECIMENOrdering Facility: [facility] Address: [address] [place] [address] Result Comment: The [place] [employer] (ADA) provides guidance for cutoff [...] Standards of Medical Care in Diabetes 2016, [place] [employer]. Diabetes Care. 2016.39(Suppl 1). Performed By: #### 2 4321-2 ####[facility] LABIA [id number] [place] [address] [place] Potassium [Moles/Vol] 4.6 mmol/L Normal 3.7-5.1 [facility] Comment on above: Order Comment: Speci men Type: BLOOD SPECIMENOrdering Facility: [facility] Address: [address] [place] [address] Performed By: #### 2 4321-2 ####[facility] [id number] [place] [address] [place] Sodium [Moles/Vol] 126 mmol/L Low 136-144 [facility] Comment on above: Order Comment: Speci men Type: BLOOD SPECIMENOrdering Facility: [facility] Address: [address] [place] [address] Performed By: #### 2 4321-2 ####[facility] [id number] [place] [address] [place] Urea nitrogen [Mass/Vol] 12 mg/dL Normal 7-21 [facility] Comment on above: Order Comment: Speci men Type: BLOOD SPECIMENOrdering Facility: [facility] Address: [address] [place] [address] Performed By: #### 2 4321-2 ####[facility] [id number] [place] [address] [place] CBC W Auto Differential pane l (Bld)on 01-03-2025 Basophils (Bld) [#/Vol] 0.06 10*3/uL Normal <0.11 [facility] Comment on above: Order Comment: Speci men Type: BLOOD SPECIMENOrdering Facility: [facility] Address: [address] [place] [address] Performed By: #### 5 7021-8 ####[facility] LABCLIA [id number] [place] [id number] [place] Basophils/100 WBC (Bld) 0.6 % Normal [facility] Comment on above: Order Comment: Speci men Type: BLOOD SPECIMENOrdering Facility: [facility] Address: [address] [place] [address] Performed By: #### 5 7021-8 ####[facility] LABCLIA [id number] [address], [place] [address] [place] Differential cell count method Nom (Bld) Auto Normal [facility] Comment on above: Order Comment: Speci men Type: BLOOD SPECIMENOrdering Facility: [facility] Address: [address] [place] [address] Performed By: #### 5 7021-8 ####[facility] LABCLIA [id number] [place] [address] [place] Eosinophils (Bld) [#/Vol] 0.03 10*3/uL Normal <0.46 [facility] Comment on above: Order Comment: Speci men Type: BLOOD SPECIMENOrdering Facility: [facility] Address: [address] [place] [address] Performed By: #### 5 7021-8 ####[facility] LABCLIA [id number] [place] [address] [place] Eosinophils/100 WBC (Bld) 0.3 % Normal [facility] Comment on above: Order Comment: Speci men Type: BLOOD SPECIMENOrdering Facility: [facility] Address: [address] [place] [address] Performed By: #### 5 7021-8 ####[facility] LABCLIA [id number] [place] [address] [place] Erythrocyte distribution width (RBC) [Ratio] 14.2 % Normal 11.5-15.0 [facility] Comment on above: Order Comment: Speci men Type: BLOOD SPECIMENOrdering Facility: [facility] Address: [address] [place] [address] Performed By: #### 5 7021-8 ####[facility] LABIA [id number] [place] [address] [place] Hematocrit (Bld) [Volume fraction] 42.2 % Normal 36.0-46.0 [facility] Comment on above: Order Comment: Speci men Type: BLOOD SPECIMENOrdering Facility: [facility] Address: [address] [place] [address] Performed By: #### 5 7021-8 ####[facility] LABIA [id number] [place] [address] [place] Hemoglobin (Bld) [Mass/Vol] 13.5 g/dL Normal 11.5-15.5 [facility] Comment on above: Order Comment: Speci men Type: BLOOD SPECIMENOrdering Facility: [facility] Address: [address] [place] [address] Performed By: #### 5 7021-8 ####[facility] LABIA [id number] [place] [address] [place] Immature granulocytes (Bld) [#/Vol] 0.08 10*3/uL Normal <0.10 [facility] Comment on above: Order Comment: Speci men Type: BLOOD SPECIMENOrdering Facility: [facility] Address: [address] [place] [address] Performed By: #### 5 7021-8 ####[facility] LABIA [id number] [place] [address] [place] Immature granulocytes/100 WBC (Bld) 0.8 % Normal [facility] Comment on above: Order Comment: Speci men Type: BLOOD SPECIMENOrdering Facility: [facility] Address: [address] [place] [address] Performed By: #### 5 7021-8 ####[facility] LABCLIA [id number] [place] [address] [place] Lymphocytes (Bld) [#/Vol] 2.24 10*3/uL Normal 1.00-4.00 [facility] Comment on above: Order Comment: Speci men Type: BLOOD SPECIMENOrdering Facility: [facility] Address: [address] [place] [address] Performed By: #### 5 7021-8 ####[facility] LABCLIA [id number] [place] [address] [place] Lymphocytes/100 WBC (Bld) 21.2 % Normal [facility] Comment on above: Order Comment: Speci men Type: BLOOD SPECIMENOrdering Facility: [facility] Address: [address] [place] [address] Performed By: #### 5 7021-8 ####[facility] LABCLIA [id number] [place] [address] [place] MCH (RBC) [Entitic mass] 29.0 pg Normal 26.0-34.0 [facility] Comment on above: Order Comment: Speci men Type: BLOOD SPECIMENOrdering Facility: [facility] Address: [address] [place] [address] Performed By: #### 5 7021-8 ####[facility] LABCLIA [id number] [place] [address] [place] MCHC (RBC) [Mass/Vol] 32.0 g/dL Normal 30.5-36.0 [facility] Comment on above: Order Comment: Speci men Type: BLOOD SPECIMENOrdering Facility: [facility] Address: [address] [place] [address] Performed By: #### 5 7021-8 ####[facility] LABCLIA [id number] [address], [place] [address] [place] MCV (RBC) [Entitic vol] 90.6 fL Normal 80.0-100.0 [facility] Comment on above: Order Comment: Speci men Type: BLOOD SPECIMENOrdering Facility: [facility] Address: [address] [place] [address] Performed By: #### 5 7021-8 ####[facility] LABCLIA [id number] [place] [address] [place] Monocytes (Bld) [#/Vol] 0.84 10*3/uL Normal <0.87 [facility] Comment on above: Order Comment: Speci men Type: BLOOD SPECIMENOrdering Facility: [facility] Address: [address] [place] [address] Performed By: #### 5 7021-8 ####[facility] LABIA [id number] [place] [address] [place] Monocytes/100 WBC (Bld) 7.9 % Normal C [facility] Comment on above: Order Comment: Speci men Type: BLOOD SPECIMENOrdering Facility: [facility] Address: [address] [place] [address] Performed By: #### 5 7021-8 ####[facility] LABCLIA [id number] [place] [address] [place] Neutrophils (Bld) [#/Vol] 7.33 10*3/uL Normal 1.45-7.50 [facility] Comment on above: Order Comment: Speci men Type: BLOOD SPECIMENOrdering Facility: [facility] Address: [address] [place] [address] Performed By: #### 5 7021-8 ####[facility] LABIA [id number] [address] [place] [address] [place] Neutrophils/100 WBC (Bld) 69.2 % Normal [facility] Comment on above: Order Comment: Speci men Type: BLOOD SPECIMENOrdering Facility: [facility] Address: [address] [place] [address] Performed By: #### 5 7021-8 ####[facility] LABCLIA [id number] [facility] [address] [place] Nucleated RBC (Bld) [#/Vol] 10*3/uL Normal <0.01 [facility] Comment on above: Order Comment: Speci men Type: BLOOD SPECIMENOrdering Facility: [facility] Address: [address] [place] [address] Performed By: #### 5 7021-8 ####[facility] LABCLIA [id number] [address], [place] [address] [place] Nucleated RBC/100 WBC (Bld) [Ratio] 0.0 /100 WBC Normal [facility] Comment on above: Order Comment: Speci men Type: BLOOD SPECIMENOrdering Facility: [facility] Address: [address] [place] [address] Performed By: #### 5 7021-8 ####[facility] LABCLIA [id number] [address], [place] [address] [place] Platelet mean volume (Bld) [Entitic vol] 11.0 fL Normal 9.0-12.7 [facility] Comment on above: Order Comment: Speci men Type: BLOOD SPECIMENOrdering Facility: [facility] Address: [address] [place] [address] Performed By: #### 5 7021-8 ####[facility] LABCLIA [id number] [place] [id number] [place] Platelets (Bld) [#/Vol] 177 10*3/uL Normal 150-400 [facility] Comment on above: Order Comment: Speci men Type: BLOOD SPECIMENOrdering Facility: [facility] Address: [address] [place] [address] Performed By: #### 5 7021-8 ####[facility] [id number] [place] [id number] [place] RBC (Bld) [#/Vol] 4.66 10*6/uL Normal 3.90-5.20 [facility] Comment on above: Order Comment: Speci men Type: BLOOD SPECIMENOrdering Facility: [facility] Address: [address] [place] [address] Performed By: #### 5 7021-8 ####[facility] [id number] [place] [address] [place] WBC (Bld) [#/Vol] 10.58 10*3/uL Normal 3.70-11.00 [facility] Comment on above: Order Comment: Speci men Type: BLOOD SPECIMENOrdering Facility: [facility] Address: [address] [place] [address] Performed By: #### 5 7021-8 ####[facility] [id number] [place] [address] [place] CNCOon 01-03-2025 CNCO Letter Text Normal [facility] CNPTOUTREACHon 01-03-2025 CNPTOUTREACH Normal [facility] HBV DNA Qn (S)on 01-03-2025 HBV DNA LUIS M+probe Ql Not detected Normal Not detected [facility] Comment on above: Order Comment: Speci men Type: BLOOD SPECIMENOrdering Facility: [facility] Address: [address] [place] [address] Performed By: #### 1 1258-1 ####[facility] [id number] [place] [address] [place] HBV core Ab Ser Qlon 025 HBV core Ab Ql (S) Negative Normal Negative [facility] Comment on above: Order Comment: Speci men Type: BLOOD SPECIMENOrdering Facility: [facility] Address: [address] [place] [address] Result Comment: No e vidence of current or past infection with Hepatitis B virus. Should recent infection be suspected, repeat testing may be considered 3-4 weeks after this draw. Performed By: #### 3 1204-1, 5195-3, 08244-6, 66226-4 ####[facility] LABCLIA [id number] [place] [id number] [place] HBV core IgM Ser Qlon 2024 HBV core IgM Ql (S) Positive Abnormal Negative [facility] Comment on above: Order Comment: Speci carlos Type: BLOOD SPECIMENOrdering Facility: [facility] Address: [address] [place] [address] Result Comment: The result suggests recent acute infection with Hepatitis B virus. Non-specific reactivity is not uncommon with this test. HBV core IgM antibody may also remain elevated for extended periods after an acute bout of infection. Clinical correlation required. Performed By: #### 3 1204-1, 5195-3, 88138-9, 00282-9 ####[facility] LABIA [id number] [place] [id number] [place] HBV e Ag SerPl Ql IAon 01-03 HBV e Ag IA Ql Negative Normal Negative [facility] Comment on above: Order Comment: Rand gonzalez Type: BLOOD SPECIMENOrdering Facility: [facility] Address: [address] [place] [address] Performed By: #### 1 3954-3, BE ####[facility] LABIA [id number] [place] [id number] [place] HBV surface Ab Ql (S)on 12-12 HBV surface Ab Qn (S) <8.00 Normal [facility] Comment on above: Order Comment: Rand gonzalez Type: BLOOD SPECIMENOrdering Facility: [facility] Address: [address] [place] [address] Result Comment: <8 m IU/mL: No serological evidence of immunity to Hepatitis B Virus.>/= 8 to <12 mIU/mL: No serological evidence of immunity to Hepatitis B Virus.>/= 12 mIU/mL: Consistent with serological evidence of immunity to Hepatitis B Virus. Performed By: #### 3 1204-1, 5195-3, 48509-8, 61627-6 ####[facility] LABCLIA [id number] [place] [address] [place] HBV surface Ab Ser Qlon 12-12 HBV surface Ab Ql (S) Negative Normal [facility] Comment on above: Order Comment: Speci men Type: BLOOD SPECIMENOrdering Facility: [facility] Address: [address] [place] [address] Result Comment: No s erological evidence of immunity to Hepatitis B Virus. Performed By: #### 3 1204-1, 5195-3, 26143-8, 78755-8 ####[facility] LABCLIA [id number] [address] [place] HBV surface Ag Ser Qlon 12-12 HBV surface Ag Ql (S) Negative Normal Negative [facility] Comment on above: Order Comment: Rand gonzalez Type: BLOOD SPECIMENOrdering Facility: [facility] Address: [address] [place] [address] Performed By: #### 3 1204-1, 5195-3, 05648-3, 63393-0 ####[facility] LABIA [id number] [place] [address] [place] HEP BE ANTIBODYon 01-03-2025 HBV e Ab IA Ql Negative Normal Negative [facility] Comment on above: Order Comment: Rand gonzalez Type: BLOOD SPECIMENOrdering Facility: [facility] Address: [address] [place] [address] Result Comment: This test should only be used in patients with a previously known and/or concurrent positive HBsAG result. Along with HBeAG test, Hepatitis B e antibody test is used for monitoring the natural history of Hepatitis B virus infection and prognostication. Clinical correlation is required. Performed By: #### 1 3954-3, AHBE ####[facility] LABCLIA [id number] [facility] [address] [address] [place] CNPNon 12-30-2024 CNPN Normal [facility] CNPTOUTREACHon 12-30-2024 CNPTOUTREACH Normal [facility] Basic metabolic 2000 panelon 12-28-2024 Anion gap [Moles/Vol] 15 mmol/L Normal 8-15 [facility] Comment on above: Order Comment: Speci men Type: BLOOD SPECIMENOrdering Facility: [facility] Address: [address] [place] [id number] Performed By: #### 2 4325-3, 21728-0 ####[facility] LABCLIA [id number] [address] [address] [place] Calcium [Mass/Vol] 9.3 mg/dL Normal 8.5-10.2 [facility] Comment on above: Order Comment: Speci men Type: BLOOD SPECIMENOrdering Facility: [facility] Address: [address] [place] [id number] Performed By: #### 2 4325-3, 48752-9 ####[facility] LABCLIA [id number] [address] [address] [place] Chloride [Moles/Vol] 94 mmol/L Low 98-107 [facility] Comment on above: Order Comment: Speci men Type: BLOOD SPECIMENOrdering Facility: [facility] Address: [address] [place] [id number] Performed By: #### 2 4325-3, 88203-5 ####[facility] LABCLIA [id number] [address] [address] [place] CO2 [Moles/Vol] 20 mmol/L Low 22-30 [facility] Comment on above: Order Comment: Speci men Type: BLOOD SPECIMENOrdering Facility: [facility] Address: [address] [place] [address] Performed By: #### 2 4325-3, 80993-0 ####[facility] LABIA [id number] [place] [id number] [place] Creatinine [Mass/Vol] 0.52 mg/dL Low 0.58-0.96 [facility] Comment on above: Order Comment: Speci men Type: BLOOD SPECIMENOrdering Facility: [facility] Address: [address] [place] [address] Performed By: #### 2 4325-3, 03849-4 ####[facility] [id number] [place] [address] [place] Creatinine and Glomerular filtration rate.predicted panel (S/P/Bld) 106 mL/min/1.73m??? Normal >=60 [facility] Comment on above: Order Comment: Rand men Type: BLOOD SPECIMENOrdering Facility: [facility] Address: [address] [place] [address] Result Comment: Gia mated Glomerular Filtration Rate [...] actual GFR. Performed By: #### 2 4325-3, ####[facility] [id number] [place] [id number] [place] Glucose [Mass/Vol] 196 mg/dL High 74-99 [facility] Comment on above: Order Comment: Speci men Type: BLOOD SPECIMENOrdering Facility: [facility] Address: [address] [place] [address] Result Comment: The [place] [employer] (ADA) provides guidance for cutoff [...] Standards of Medical Care in Diabetes 2016, [place] [employer]. Diabetes Care. 2016.39(Suppl 1). Performed By: #### 2 5-3, 08822-5 ####[facility] LABCLIA [id number] [address] [address] [place] Potassium [Moles/Vol] 4.4 mmol/L Normal 3.7-5.1 [facility] Comment on above: Order Comment: Speci men Type: BLOOD SPECIMENOrdering Facility: [facility] Address: [address] [place] [address] Performed By: #### 2 3, ####[facility] LABCLIA [id number] [address] [address] [place] Sodium [Moles/Vol] 129 mmol/L Low 136-144 [facility] Comment on above: Order Comment: Speci men Type: BLOOD SPECIMENOrdering Facility: [facility] Address: [address] [place] [address] Performed By: #### 2 3, ####[facility] LABCLIA [id number] [facility] [address] [address] [place] Urea nitrogen [Mass/Vol] 13 mg/dL Normal 7-21 [facility] Comment on above: Order Comment: Speci men Type: BLOOD SPECIMENOrdering Facility: [facility] Address: [address] [place] [address] Performed By: #### 2 3, 16421-1 ####[facility] LABCLIA [id number] [address] [address] [place] CBC W Auto Differential pane l (Bld)on 12-28-2024 Basophils (Bld) [#/Vol] 0.07 10*3/uL Normal <0.11 [facility] Comment on above: Order Comment: Speci men Type: BLOOD SPECIMENOrdering Facility: [facility] Address: [address] [place] [address] Performed By: #### 5 7021-8 ####[facility] LABCLIA [id number] [facility] [address] [place] Basophils/100 WBC (Bld) 0.6 % Normal [facility] Comment on above: Order Comment: Speci men Type: BLOOD SPECIMENOrdering Facility: [facility] Address: [address] [place] [address] Performed By: #### 5 7021-8 ####[facility] LABCLIA [id number] [place] [address] [place] Differential cell count method Nom (Bld) Auto Normal [facility] Comment on above: Order Comment: Speci men Type: BLOOD SPECIMENOrdering Facility: [facility] Address: [address] [place] [address] Performed By: #### 5 7021-8 ####[facility] LABCLIA [id number] [place] [address] [place] Eosinophils (Bld) [#/Vol] 0.03 10*3/uL Normal <0.46 [facility] Comment on above: Order Comment: Speci men Type: BLOOD SPECIMENOrdering Facility: [facility] Address: [address] [place] [address] Performed By: #### 5 7021-8 ####[facility] LABCLIA [id number] [facility] [address] [place] Eosinophils/100 WBC (Bld) 0.3 % Normal [facility] Comment on above: Order Comment: Speci men Type: BLOOD SPECIMENOrdering Facility: [facility] Address: [address] [place] [address] Performed By: #### 5 7021-8 ####[facility] LABIA [id number] [place] [address] [place] Erythrocyte distribution width (RBC) [Ratio] 14.1 % Normal 11.5-15.0 [facility] Comment on above: Order Comment: Speci men Type: BLOOD SPECIMENOrdering Facility: [facility] Address: [address] [place] [address] Performed By: #### 5 7021-8 ####[facility] LABIA [id number] [place] [address] [place] Hematocrit (Bld) [Volume fraction] 42.9 % Normal 36.0-46.0 [facility] Comment on above: Order Comment: Speci men Type: BLOOD SPECIMENOrdering Facility: [facility] Address: [address] [place] [address] Performed By: #### 5 7021-8 ####[facility] LABIA [id number] [place] [address] [place] Hemoglobin (Bld) [Mass/Vol] 14.1 g/dL Normal 11.5-15.5 [facility] Comment on above: Order Comment: Speci men Type: BLOOD SPECIMENOrdering Facility: [facility] Address: [address] [place] [address] Performed By: #### 5 7021-8 ####[facility] LABCLIA [id number] [place] [address] [place] Immature granulocytes (Bld) [#/Vol] 0.12 10*3/uL High <0.10 [facility] Comment on above: Order Comment: Speci men Type: BLOOD SPECIMENOrdering Facility: [facility] Address: [address] [place] [address] Performed By: #### 5 7021-8 ####[facility] LABCLIA [id number] [place] [address] [place] Immature granulocytes/100 WBC (Bld) 1.0 % Normal [facility] Comment on above: Order Comment: Speci men Type: BLOOD SPECIMENOrdering Facility: [facility] Address: [address] [place] [address] Performed By: #### 5 7021-8 ####[facility] LABIA [id number] [place] [address] [place] Lymphocytes (Bld) [#/Vol] 2.70 10*3/uL Normal 1.00-4.00 [facility] Comment on above: Order Comment: Speci men Type: BLOOD SPECIMENOrdering Facility: [facility] Address: [address] [place] [address] Performed By: #### 5 7021-8 ####[facility] LABIA [id number] [place] [address] [place] Lymphocytes/100 WBC (Bld) 23.1 % Normal [facility] Comment on above: Order Comment: Speci men Type: BLOOD SPECIMENOrdering Facility: [facility] Address: [address] [place] [address] Performed By: #### 5 7021-8 ####[facility] LABIA [id number] [place] [address] [place] MCH (RBC) [Entitic mass] 29.3 pg Normal 26.0-34.0 [facility] Comment on above: Order Comment: Speci men Type: BLOOD SPECIMENOrdering Facility: [facility] Address: [address] [place] [address] Performed By: #### 5 7021-8 ####[facility] LABIA [id number] [place] [address] [place] MCHC (RBC) [Mass/Vol] 32.9 g/dL Normal 30.5-36.0 [facility] Comment on above: Order Comment: Speci men Type: BLOOD SPECIMENOrdering Facility: [facility] Address: [address] [place] [address] Performed By: #### 5 7021-8 ####[facility] LABCLIA [id number] [place] [address] [place] MCV (RBC) [Entitic vol] 89.2 fL Normal 80.0-100.0 C [facility] Comment on above: Order Comment: Speci men Type: BLOOD SPECIMENOrdering Facility: [facility] Address: [address] [place] [address] Performed By: #### 5 7021-8 ####[facility] LABIA [id number] [place] [address] [place] Monocytes (Bld) [#/Vol] 0.56 10*3/uL Normal <0.87 [facility] Comment on above: Order Comment: Speci men Type: BLOOD SPECIMENOrdering Facility: [facility] Address: [address] [place] [address] Performed By: #### 5 7021-8 ####[facility] LABIA [id number] [place] [address] [place] Monocytes/100 WBC (Bld) 4.8 % Normal C [facility] Comment on above: Order Comment: Speci men Type: BLOOD SPECIMENOrdering Facility: [facility] Address: [address] [place] [address] Performed By: #### 5 7021-8 ####[facility] LABIA [id number] [place] [id number] [place] Neutrophils (Bld) [#/Vol] 8.22 10*3/uL High 1.45-7.50 [facility] Comment on above: Order Comment: Speci men Type: BLOOD SPECIMENOrdering Facility: [facility] Address: [address] [place] [address] Performed By: #### 5 7021-8 ####[facility] LABCLIA [id number] [address] [address] [place] Neutrophils/100 WBC (Bld) 70.2 % Normal [facility] Comment on above: Order Comment: Speci men Type: BLOOD SPECIMENOrdering Facility: [facility] Address: [address] [place] [address] Performed By: #### 5 7021-8 ####[facility] LABCLIA [id number] [address], [place] [address] [place] Nucleated RBC (Bld) [#/Vol] 10*3/uL Normal <0.01 [facility] Comment on above: Order Comment: Speci men Type: BLOOD SPECIMENOrdering Facility: [facility] Address: [address] [place] [address] Performed By: #### 5 7021-8 ####[facility] LABCLIA [id number] [place] [address] [place] Nucleated RBC/100 WBC (Bld) [Ratio] 0.0 /100 WBC Normal [facility] Comment on above: Order Comment: Speci men Type: BLOOD SPECIMENOrdering Facility: [facility] [facility] Address: [address] [place] [address] Performed By: #### 5 7021-8 ####[facility] LABCLIA [id number] [place] [address] [place] Platelet mean volume (Bld) [Entitic vol] 11.9 fL Normal 9.0-12.7 [facility] Comment on above: Order Comment: Speci men Type: BLOOD SPECIMENOrdering Facility: [facility] Address: [address] [place] [address] Performed By: #### 5 7021-8 ####[facility] LABCLIA [id number] [place] [id number] [place] Platelets (Bld) [#/Vol] 144 10*3/uL Low 150-400 [facility] Comment on above: Order Comment: Speci men Type: BLOOD SPECIMENOrdering Facility: [facility] Address: [address] [place] [address] Performed By: #### 5 7021-8 ####[facility] LABCLIA [id number] [place] [address] [place] RBC (Bld) [#/Vol] 4.81 10*6/uL Normal 3.90-5.20 [facility] Comment on above: Order Comment: Speci men Type: BLOOD SPECIMENOrdering Facility: [facility] Address: [address] [place] [address] Performed By: #### 5 7021-8 ####[facility] LABIA [id number] [place] [address] [place] WBC (Bld) [#/Vol] 11.70 10*3/uL High 3.70-11.00 [facility] Comment on above: Order Comment: Speci men Type: BLOOD SPECIMENOrdering Facility: [facility] Address: [address] [place] [address] Performed By: #### 5 7021-8 ####[facility] LABIA [id number] [place] [address] [place] CNOVon 12-28-2024 CNOV Normal [facility] HAV IgM Ser Qlon 12-28-2024 HAV IgM Ql (S) Negative Normal Negative [facility] Comment on above: Order Comment: Speci men Type: BLOOD SPECIMENOrdering Facility: [facility] Address: [address] [place] [address] Result Comment: No e vidence of recent infection with Hepatitis A virus. Performed By: #### 3 1204-1, 5195-3, 32461-9 ####[facility] LABIA [id number] [place] [address] [place] HBV core IgM Ser Qlon 2024 HBV core IgM Ql (S) Positive Abnormal Negative [facility] Comment on above: Order Comment: Speci carlos Type: BLOOD SPECIMENOrdering Facility: [facility] Address: [address] [place] [address] Result Comment: The result suggests recent acute infection with Hepatitis B virus. Non-specific reactivity is not uncommon with this test. HBV core IgM antibody may also remain elevated for extended periods after an acute bout of infection. Clinical correlation required. Performed By: #### 3 1204-1, 5195-3, 58825-7 ####[facility] LABCLIA [id number] [place] [address] [place] HBV surface Ag Ser Qlon 12-11 HBV surface Ag Ql (S) Negative Normal Negative [facility] Comment on above: Order Comment: [facility] Type: BLOOD SPECIMENOrdering Facility: [facility] Address: [address] [place] [address] Performed By: #### 3 1204-1, 5195-3, 05138-7 ####[facility] LABIA [id number] [place] [address] [place] HCV RNA LUIS M+probe Qnon 12-28 HCV RNA LUIS M+probe Ql Not detected Normal Not detected [facility] Comment on above: Order Comment: [facility] Type: BLOOD SPECIMENOrdering Facility: [facility] Address: [address] [place] [address] Performed By: #### 1 1011-4 ####[facility] LABCLIA [id number] [place] [id number] [place] Hepatic function 2000 panelo n 12-28-2024 Albumin [Mass/Vol] 4.3 g/dL Normal 3.9-4.9 [facility] Comment on above: Order Comment: [facility] Type: BLOOD SPECIMENOrdering Facility: [facility] Address: [address] [place] [address] Performed By: #### 2 4325-3, 77540-2 ####[facility] LABCLIA [id number] [address] [address] [place] ALP [Catalytic activity/Vol] 123 U/L Normal 34-123 [facility] Comment on above: Order Comment: Speci men Type: BLOOD SPECIMENOrdering Facility: [facility] Address: [address] [place] [address] Performed By: #### 2 4325-3, 72220-4 ####[facility] LABCLIA [id number] [place] [id number] [place] ALT [Catalytic activity/Vol] 32 U/L Normal 7-38 [facility] Comment on above: Order Comment: Speci men Type: BLOOD SPECIMENOrdering Facility: [facility] Address: [address] [place] [address] Performed By: #### 2 4325-3, 44526-5 ####[facility] LABCLIA [id number] [place] [address] [place] AST [Catalytic activity/Vol] 17 U/L Normal 13-35 [facility] Comment on above: Order Comment: Speci men Type: BLOOD SPECIMENOrdering Facility: [facility] Address: [address] [place] [address] Performed By: #### 2 4325-3, 09980-5 ####[facility] LABCLIA [id number] [place] [id number] [place] Bilirubin [Mass/Vol] 0.2 mg/dL Normal 0.2-1.3 [facility] Comment on above: Order Comment: Speci men Type: BLOOD SPECIMENOrdering Facility: [facility] Address: [address] [place] [address] Performed By: #### 2 4325-3, 90555-5 ####[facility] LABCLIA [id number] [place] [id number] [place] Bilirubin.conjugated [Mass/Vol] mg/dL Normal <0.3 [facility] Comment on above: Order Comment: Speci men Type: BLOOD SPECIMENOrdering Facility: [facility] Address: [address] [place] [id number] Performed By: #### 2 4325-3, 56404-5 ####[facility] LABCLIA [id number] [address] [address] [place] Protein [Mass/Vol] 7.5 g/dL Normal 6.3-8.0 [facility] Comment on above: Order Comment: Speci men Type: BLOOD SPECIMENOrdering Facility: [facility] Address: [address] [place] [address] Performed By: #### 2 4325-3, 55831-2 ####[facility] LABCLIA [id number] [address] [address] [place] Culture, Blood (WB)on 2024 CUB Blood cultures x2, f rom two different sites No growth in 5 days. Normal [facility] Comment on above: Performed By: #### L 100.0100 #### [facility] Laboratory [address] [place] [address]. [place], [place], [address] Performed By: #### L 500.4050, L501.4020, L501.2450, L100.0500 #### [facility] Laboratory [address] [facility]. [place], [place], [address] Urine Cultureon 12-23-2024 URC Mixed Gram Pos Gram Neg Org [place] Count <1000 MIXC Mixed contaminants. Submit a new specimen if indicated. Normal [facility] Comment on above: Performed By: #### M 100.678 #### [facility] Laboratory [address] [facility] [place], [address] 12 Lead EKGon 12-21-2024 12 Lead EKG [facility] Cardiovascular Services [address] [place] [address] 12 Lead EKG 12/21/24 0857 MR#: [id number] Acct: [id number] Name: BRENDA LE Rep #: [id number] : 1965 59 From: Gary Bose MD [...] Abnormal ECG Confirmed by TAMMY SANDERS, GLORIA ([id number]), primer expeditor and drier CRISTAL OTT ([id number]) on 12/27/2024 11:14:51 AM Referred By: Confirmed By: GLORIA BOSE MD 12/27/24 1114 Date Gary Bose MD CC: ESEQUIEL Salmon; Dr. Babak Garcia, Signed Normal [facility] Absolute lymphocyte countOrd ered By: Babak Garcia on 12-21-2024 Lymphocytes Auto (Unsp spec) [#/Vol] 1.06 10*3/uL 0.83-4.51 [facility] Absolute neutrophil countOrd ered By: Babak Garcia on 12-21-2024 Neutrophils (Bld) [#/Vol] 10.6 10*3/uL High 2.0-7.7 [facility] Activated partial thrombopla stin time (aPTT) in platelet poor plasma by coagulation aOrdered By: Babak Garcia on 12-21-2024 aPTT Coag (PPP) [Time] 35.4 s 24.1-36.2 [facility] Anion gap in Serum or Plasma Ordered By: Babak Garcia on 12-21-2024 Anion gap [Moles/Vol] 11 mmol/L 5-15 [facility] Automated blood erythrocyte countOrdered By: Babak Garcia on 12-21-2024 RBC (Bld) [#/Vol] 4.30 10*6/uL Normal 4.2-5.4 [facility] Comment on above: Performed By: #### L 500.2500, L100.0100 #### [facility] Laboratory [address] [place], [address] Automated blood hematocrit ( percentage)Ordered By: Babak Garcia on 12-21-2024 Hematocrit (Bld) [Volume fraction] 38.1 % Normal 37-47 [facility] Comment on above: Performed By: #### L 500.2500, L100.0100 #### [facility] [address] [place], [address] Automated lymphocyte count a s percentage of total leukocytesOrdered By: Babak Garcia on 12-21-2024 Lymphocytes/100 WBC (Bld) 8.6 % Low 19-41 [facility] Comment on above: Performed By: #### L 500.2500, L100.0100 #### [facility] [address] [place], [address] Lymphocytes/100 WBC Auto (Unsp spec) 8.6 % Low 19-41 [facility] BUN/creatinine ratioOrdered By: Babak Garcia on 12-21-2024 Urea nitrogen/Creatinine [Mass ratio] 19.2 mg/mg 10-20 [facility] Basophil percentageOrdered B y: Babak Garcia on 12-21-2024 Basophils/100 WBC (Bld) 0.2 % Normal 0-1 [facility] Comment on above: Performed By: #### L 500.2500, L100.0100 #### [facility] Laboratory [address] [place], [address] Bilirubin Test strip Ql (U)O rdered By: Babak Garcia on 12-21-2024 Bilirubin Ql (U) Negative Negative [facility] Bilirubin, totalOrdered By: Babak Garcia on 12-21-2024 Bilirubin [Mass/Vol] 0.29 mg/dL Normal 0.00-1.30 [facility] Comment on above: Performed By: #### L 500.2500, L100.0100 #### [facility] [address] [place], [address] Blood cultureOrdered By: Rogelio Garcia on 12-21-2024 Bacteria identified Cx Nom (Bld) No growth in 5 days. [facility] Bacteria identified Cx Nom (Bld) No growth in 5 days. [facility] CBC W/Diff, Automatedon 12-11 Absolute Lymph 1.06 X10 3/uL Normal 0.83-4.51 [facility] Comment on above: Performed By: #### L 500.2500, L100.0100 #### [facility] Laboratory [address] [place], [address] Absolute Neut 10.6 X10 3/uL High 2.0-7.7 [facility] Comment on above: Performed By: #### L 500.2500, L100.0100 #### [facility] [address] [place], [address] IG% 0.400 Normal 0.0-0.9 [facility] Comment on above: Result Comment: IG% - Immature Granulocytes (promyelocytes, myelocytes and metamyelocytes) > 1% indicates that a LEFT SHIFT is Present. Performed By: #### L 500.2500, L100.0100 #### [facility] [address] [place], [address] Nucleated RBC (Bld) [#/Vol] 0 10*3/uL Normal 0-5 [facility] Comment on above: Performed By: #### L 500.2500, L100.0100 #### [facility] [address] [place], [address] RDW SD 46.4 fl High 35.1-43.9 [facility] Comment on above: Performed By: #### L 500.2500, L100.0100 #### [facility] [address] [place], [address] Absolute Lymph 1.05 X10 3/uL Normal 0.83-4.51 [facility] Comment on above: Result Comment: This specimen has been REJECTED due to Laboratory criteria: Contaminated/Leaked. juliocesar has been notified of need of recollection. 12/21/24 0957 Issac Chawla White Performed By: #### L 100.0100 #### [facility] [address] [place], [address] Absolute Neut 10.3 X10 3/uL High 2.0-7.7 [facility] Comment on above: Result Comment: This specimen has been REJECTED due to Laboratory criteria: Contaminated/Leaked. rishabhkathy has been notified of need of recollection. 12/21/2457 Issac Chawla White Performed By: #### L 100.0100 #### [facility] Laboratory [facility] [address] [facility] [address] BASO# 0.05 X10 3/uL Normal [facility] Comment on above: Result Comment: This specimen has been REJECTED due to Laboratory criteria: Contaminated/Leaked. rishabhkathy has been notified of need of recollection. 12/21/2457 Issac Chawla White Performed By: #### L 100.0100 #### [facility] Laboratory [facility] [place], [address] Basophils/100 WBC (Bld) 0.4 % Normal 0-1 [facility] Comment on above: Result Comment: This specimen has been REJECTED due to Laboratory criteria: Contaminated/Leaked. rishabhyefrie has been notified of need of recollection. 12/21/24 0957 Issac Chawla White Performed By: #### L 100.0100 #### [facility] [address] [place], [address] EOS# 0.01 X10 3/uL Normal [facility] Comment on above: Result Comment: This specimen has been REJECTED due to Laboratory criteria: Contaminated/Leaked. juliocesar has been notified of need of recollection. 12/21/24956 Issac Chawla White Performed By: #### L 100.0100 #### [facility] [address] [place], [place], [address] Erythrocyte distribution width (RBC) [Ratio] 14.4 % Normal 11.6-14.6 [facility] Comment on above: Result Comment: This specimen has been REJECTED due to Laboratory criteria: Contaminated/Leaked. juliocesar has been notified of need of recollection. 12/21/24956 Issac Chawla White Performed By: #### L 100.0100 #### [facility] Laboratory [address] [place], [place], [address] (992) Hematocrit (Bld) [Volume fraction] 40.3 % Normal 37-47 [facility] Comment on above: Result Comment: This specimen has been REJECTED due to Laboratory criteria: Contaminated/Leaked. juliocesar has been notified of need of recollection. 12/21/24956 Issac Chawla White Performed By: #### L 100.0100 #### [facility] Laboratory [address] [place], [place], [address] ([address]) Hemoglobin (Bld) [Mass/Vol] 13.3 g/dL Normal 12.0-15.0 [facility] Comment on above: Result Comment: This specimen has been REJECTED due to Laboratory criteria: Contaminated/Leaked. juliocesar has been notified of need of recollection. 12/21/24956 Issac Chawla White Performed By: #### L 100.0100 #### [facility] [address] [place], [address] IG# 0.070 X10 3/uL High 0.0-0.0 [facility] Comment on above: Result Comment: This specimen has been REJECTED due to Laboratory criteria: Contaminated/Leaked. juliocesar has been notified of need of recollection. 12/21/24956 Issac Chawla White Performed By: #### L 100.0100 #### [facility] [address] [place], [address] IG% 0.600 Normal 0.0-0.9 [facility] Comment on above: Result Comment: This specimen has been REJECTED due to Laboratory criteria: Contaminated/Leaked. juliocesar has been notified of need of recollection. 12/21/24956 Issac L White IG% - Immature Granulocytes (promyelocytes, myelocytes and metamyelocytes) > 1% indicates that a LEFT SHIFT is Present. Performed By: #### L 100.0100 #### [facility] [address] [place], [address] LYMPH# 1.05 X10 3/ul Normal 0.83-4.51 [facility] Comment on above: Result Comment: This specimen has been REJECTED due to Laboratory criteria: Contaminated/Leaked. juliocesar has been notified of need of recollection. 12/21/24956 Issac L White Performed By: #### L 100.0100 #### [facility] [address] [place], [address] Lymphocytes/100 WBC (Bld) 8.7 % Low 19-41 [facility] Comment on above: Result Comment: This specimen has been REJECTED due to Laboratory criteria: Contaminated/Leaked. juliocesar has been notified of need of recollection. 12/21/24956 Issac L White Performed By: #### L 100.0100 #### [facility] [address] [place], [address] MCH (RBC) [Entitic mass] 29.2 pg Normal 27.0-32.0 [facility] Comment on above: Result Comment: This specimen has been REJECTED due to Laboratory criteria: Contaminated/Leaked. [email or web address] has been notified of need of recollection. 12/21/24956 Issac L White Performed By: #### L 100.0100 #### [facility] [address] [place], [address] MCHC (RBC) [Mass/Vol] 33.0 g/dL Normal 32-36 [facility] Comment on above: Result Comment: This specimen has been REJECTED due to Laboratory criteria: Contaminated/Leaked. juliocesar has been notified of need of recollection. 12/21/24956 Issac Chawla White Performed By: #### L 100.0100 #### [facility] [address] [place], [address] MCV (RBC) [Entitic vol] 88.4 fL Normal 81-99 [facility] Comment on above: Result Comment: This specimen has been REJECTED due to Laboratory criteria: Contaminated/Leaked. rishabhkathy has been notified of need of recollection. 12/21/24956 Issac Chawla White Performed By: #### L 100.0100 #### [facility] [address] [place], [address] MONO # 0.49 X10 3/uL Normal [facility] Comment on above: Result Comment: This specimen has been REJECTED due to Laboratory criteria: Contaminated/Leaked. juliocesar has been notified of need of recollection. 12/21/24956 Issac Chawla White Performed By: #### L 100.0100 #### [facility] [address] [place], [address] Monocytes/100 WBC (Bld) 4.1 % Normal 0-10 [facility] Comment on above: Result Comment: This specimen has been REJECTED due to Laboratory criteria: Contaminated/Leaked. juliocesar has been notified of need of recollection. 12/21/24956 Issac Chawla White Performed By: #### L 100.0100 #### [facility] [address] [place], [address] Neutrophil # 10.34 X10 3/uL High 2.7-7.7 [facility] Comment on above: Result Comment: This specimen has been REJECTED due to Laboratory criteria: Contaminated/Leaked. rishabhkathy has been notified of need of recollection. 12/21/24956 Issac Chawla White Performed By: #### L 100.0100 #### [facility] [address] [place], [address] Neutrophils/100 WBC (Bld) 86.1 % High 47-70 [facility] Comment on above: Result Comment: This specimen has been REJECTED due to Laboratory criteria: Contaminated/Leaked. juliocesar has been notified of need of recollection. 12/21/2457 Issac L White Performed By: #### L 100.0100 #### [facility] [address] [place], [address] Nucleated RBC (Bld) [#/Vol] 0 10*3/uL Normal 0-5 [facility] Comment on above: Result Comment: This specimen has been REJECTED due to Laboratory criteria: Contaminated/Leaked. juliocesar has been notified of need of recollection. 12/21/2457 Issac L White Performed By: #### L 100.0100 #### [facility] [address] [place], [address] Platelet mean volume (Bld) [Entitic vol] 9.9 fL Normal 6.2-12.0 [facility] Comment on above: Result Comment: This specimen has been REJECTED due to Laboratory criteria: Contaminated/Leaked. juliocesar has been notified of need of recollection. 12/21/2457 Issac L White Performed By: #### L 100.0100 #### [facility] [address] [place], [address] Platelets (Bld) [#/Vol] 201 10*3/uL Normal 150-450 [facility] Comment on above: Result Comment: This specimen has been REJECTED due to Laboratory criteria: Contaminated/Leaked. juliocesar has been notified of need of recollection. 12/21/24 0957 Issac L White Performed By: #### L 100.0100 #### [facility] [address] [place], [address] RBC (Bld) [#/Vol] 4.56 10*6/uL Normal 4.2-5.4 [facility] Comment on above: Result Comment: This specimen has been REJECTED due to Laboratory criteria: Contaminated/Leaked. juliocesar has been notified of need of recollection. 12/21/24 0957 Issac Chawla Josh Performed By: #### L 100.0100 #### [facility] [address] [place], [address] RDW SD 46.5 fl High 35.1-43.9 [facility] Comment on above: Result Comment: This specimen has been REJECTED due to Laboratory criteria: Contaminated/Leaked. juliocesar has been notified of need of recollection. 12/21/24 0957 Issac Chawla Josh Performed By: #### L 100.0100 #### [facility] [address] [place], [address] WBC (Bld) [#/Vol] 12.0 10*3/uL High 4.4-11.0 [facility] Comment on above: Result Comment: This specimen has been REJECTED due to Laboratory criteria: Contaminated/Leaked. juliocesar has been notified of need of recollection. 12/21/24 0957 Issac Chawla Josh Performed By: #### L 100.0100 #### [facility] [address] [place], [address] Carbon dioxide, total [Moles /volume] in Central venous bloodOrdered By: Babak Garcia on 12-21-2024 CO2 [Moles/Vol] 22.6 mmol/L Normal 21.0-32.0 [facility] Comment on above: Performed By: #### L 500.2500, L100.0100 #### [facility] Laboratory [address] [place], [address] Chest PA and Lateralon 12-21 Chest PA and Lateral [facility] Imaging Services [address] [place] [address] Chest PA and Lateral MR#: [id number] Acct: [id number] Name: BRENDA LE Rep #: [id number] : 1965 F 59 From: Ana Lilia Carlos MD PCP: ESEQUIEL Headley Status: REG ER Study: Chest PA and Lateral Date of Exam: 12/21/24 Exam# [id number] Ordering Dr: Babak Garcia DO EXAM: XR Chest, 2 Views CLINICAL INDICATION: SOB TECHNIQUE: Frontal and lateral views of the chest. COMPARISON: No relevant prior studies available. FINDINGS: LUNGS AND PLEURAL SPACES: Pulmonary venous congestion. No consolidation. No pneumothorax. HEART: Unremarkable. No cardiomegaly. MEDIASTINUM: Unremarkable. Normal mediastinal contour. BONES/JOINTS: Unremarkable. No acute fracture. RAD/Chest PA and Lateral IMPRESSION: Pulmonary venous congestion. Reading Location: [facility] CC: HARMONICA MAKER Shelia Salmon; Dr. Babak Garcia DO Sound Art Instructor: Signed Normal [facility] Chloride assayOrdered By: Rory Garcia on 12-21-2024 Chloride [Moles/Vol] 102 mmol/L Normal 98-108 [facility] Comment on above: Performed By: #### L 500.2500, L100.0100 #### [facility] Laboratory [address] [place], [address] Comprehensive Metabolic Prof ilon 12-21-2024 ALK PHOS 108 U/L High 35-104 [facility] Comment on above: Performed By: #### L 500.2500, L100.0100 #### [facility] Laboratory [address] [facility] [address] BUN/CRE 19.2 RATIO Normal 10-20 [facility] Comment on above: Performed By: #### L 500.2500, L100.0100 #### [facility] [address] [place], [address] ECRCL 127.81 ml/min Normal 50-250 [facility] Comment on above: Performed By: #### L 500.2500, L100.0100 #### [facility] Laboratory [address] [place], [address] GAP 11 Normal 5-15 [facility] Comment on above: Performed By: #### L 500.2500, L100.0100 #### [facility] [address] [place], [address] T PROT 6.3 g/dL Normal 5.9-8.4 [facility] Comment on above: Performed By: #### L 500.2500, L100.0100 #### [facility] Laboratory [address] [place], [address] ALB Normal 3.4-4.8 [facility] Comment on above: Result Comment: This specimen has been REJECTED due to Laboratory criteria: Contaminated/Leaked. [email or web address] has been notified of need of recollection. 12/21/24957 Issac Moreno Performed By: #### L 100.0100 #### [facility] [address] [place], [address] ALK PHOS Normal 35-104 [facility] Comment on above: Result Comment: This specimen has been REJECTED due to Laboratory criteria: Contaminated/Leaked. [email or web address] has been notified of need of recollection. 12/21/24957 Issac Moreno Performed By: #### L 100.0100 #### [facility] [address] [place], [address] ALT Normal <=34 [facility] Comment on above: Result Comment: This specimen has been REJECTED due to Laboratory criteria: Contaminated/Leaked. [email or web address] has been notified of need of recollection. 12/21/24957 Issac Moreno Performed By: #### L 100.0100 #### [facility] [address] [place], [address] AST Normal <=31 [facility] Comment on above: Result Comment: This specimen has been REJECTED due to Laboratory criteria: Contaminated/Leaked. [email or web address] has been notified of need of recollection. 12/21/24957 Issac Moreno Performed By: #### L 100.0100 #### [facility] [address] [place], [address] BUN Normal 4-19 [facility] Comment on above: Result Comment: This specimen has been REJECTED due to Laboratory criteria: Contaminated/Leaked. juliocesar has been notified of need of recollection. 12/21/24957 Issac Chawla White Performed By: #### L 100.0100 #### [facility] [address] [facility] [address] BUN/CRE Normal 10-20 [facility] Comment on above: Result Comment: This specimen has been REJECTED due to Laboratory criteria: Contaminated/Leaked. juliocesar has been notified of need of recollection. 12/21/24957 Issac Chawla White Performed By: #### L 100.0100 #### [facility] [address] [facility] [address] Calcium Normal 7.6-11.0 [facility] Comment on above: Result Comment: This specimen has been REJECTED due to Laboratory criteria: Contaminated/Leaked. [email or web address] has been notified of need of recollection. 12/21/24957 Issac L White Performed By: #### L 100.0100 #### [facility] [address] [facility] [address] CL Normal 98-108 [facility] Comment on above: Result Comment: This specimen has been REJECTED due to Laboratory criteria: Contaminated/Leaked. [email or web address] has been notified of need of recollection. 12/21/24957 Issac L White Performed By: #### L 100.0100 #### [facility] [address] [facility] [address] CO2 Normal 21.0-32.0 [facility] Comment on above: Result Comment: This specimen has been REJECTED due to Laboratory criteria: Contaminated/Leaked. [email or web address] has been notified of need of recollection. 12/21/24957 Issac Chawla White Performed By: #### L 100.0100 #### [facility] [address] [place], [address] CREAT,SERUM Normal 0.70-1.20 [facility] Comment on above: Result Comment: This specimen has been REJECTED due to Laboratory criteria: Contaminated/Leaked. [email or web address] has been notified of need of recollection. 12/21/2458 Issac Chawla White Performed By: #### L 100.0100 #### [facility] [address] [facility] [address] eGFR Normal >60 [facility] Comment on above: Result Comment: This specimen has been REJECTED due to Laboratory criteria: Contaminated/Leaked. [email or web address] has been notified of need of recollection. 12/21/2458 Issac L White Performed By: #### L 100.0100 #### [facility] Laboratory [address] [facility] [address] GAP Normal 5-15 [facility] Comment on above: Result Comment: This specimen has been REJECTED due to Laboratory criteria: Contaminated/Leaked. [email or web address] has been notified of need of recollection. 12/21/24957 Issac L White Performed By: #### L 100.0100 #### [facility] [address] [facility] [address] GLU Normal 70-99 [facility] Comment on above: Result Comment: This specimen has been REJECTED due to Laboratory criteria: Contaminated/Leaked. loryefrie has been notified of need of recollection. 12/21/2458 Issac L White Performed By: #### L 100.0100 #### [facility] [address] [place], [address] Potassium Normal 3.3-5.1 [facility] Comment on above: Result Comment: This specimen has been REJECTED due to Laboratory criteria: Contaminated/Leaked. [email or web address] has been notified of need of recollection. 12/21/24957 Issac L White Performed By: #### L 100.0100 #### [facility] [address] [facility] [address] T BILI Normal 0.00-1.30 [facility] Comment on above: Result Comment: This specimen has been REJECTED due to Laboratory criteria: Contaminated/Leaked. [email or web address] has been notified of need of recollection. 12/21/24 0958 Issac Moreno Performed By: #### L 100.0100 #### [facility] Laboratory [address] [place], [address] T PROT Normal 5.9-8.4 [facility] Comment on above: Result Comment: This specimen has been REJECTED due to Laboratory criteria: Contaminated/Leaked. [email or web address] has been notified of need of recollection. 12/21/24 0958 Issac Moreno Performed By: #### L 100.0100 #### [facility] Laboratory [address] [facility] [address] Comprehensive Metabolic Profil Normal 133-145 [facility] Comment on above: Result Comment: This specimen has been REJECTED due to Laboratory criteria: Contaminated/Leaked. [email or web address] has been notified of need of recollection. 12/21/24 0958 Issac Moreno Performed By: #### L 100.0100 #### [facility] Laboratory [address] [place], [address] Comprehensive Metabolic Prof ilOrdered By: Babak Garcia on 12-21-2024 AST [Catalytic activity/Vol] 28 U/L Normal <=31 [facility] Comment on above: Hemolysis present, R esults could be affected. Result Comment: Hemo lysis present, Results??could be affected. ?? Performed By: #### L 500.2500, L100.0100 #### [facility] Laboratory [address] [place], [address] Emergency Department Summary on 12-21-2024 Emergency Department Summary [facility] Medical Records Department [address] [place] [address] Emergency Department Summary 12/21/24 MR#: [id number] Acct: [id number] Name: BRENDA LE Rep #: [id number] : 1965 59 From: Babak Garcia DO PCP: Shelia Salmon, HARMONICA MAKER Status:REG ER Location: ED HPI History [...] as her lungs were clear for them. [facility] Medical History Obesity (BMI 30-39.9) Hyponatremia Leukocytosis [...] Rx table (more content not included)... Normal [facility] Eosinophil percentageOrdered By: Babak Garcia on 12-21-2024 Eosinophils/100 WBC (Bld) 0.1 % Normal 0-5 [facility] Comment on above: Performed By: #### L 500.2500, L100.0100 #### [facility] Laboratory [address] [place], [address] Result Comment: This specimen has been REJECTED due to Laboratory criteria: Contaminated/Leaked. [email or web address] has been notified of need of recollection. 12/21/24 0957 Issac Moreno Performed By: #### L 100.0100 #### [facility] Laboratory [address] [place], [address] Epithelial cells.squamous LM Ql (Urine sed)Ordered By: Babak Garcia on 12-21-2024 Epithelial cells.squamous LM.HPF (Urine sed) [#/Area] 0 /[HPF] 5-10 [facility] Erythrocyte distribution wid th ratioOrdered By: Babak Garcia on 12-21-2024 Erythrocyte distribution width (RBC) [Ratio] 14.3 % Normal 11.6-14.6 [facility] Comment on above: Performed By: #### L 500.2500, L100.0100 #### [facility] Laboratory [address] [place], [address] Erythrocyte distribution wid th standard deviationOrdered By: Babak Garcia on 12-21-2024 Erythrocyte distribution width (RBC) [Entitic vol] 46.4 fL High 35.1-43.9 [facility] Erythrocyte distribution width (RBC) [Ratio] 46.4 fl High 35.1-43.9 [facility] Estimation of creatinine epi aranceOrdered By: Babak Garcia on 12-21-2024 Estimated Creatinine Clearance Calc 127.81 ml/min 50-250 [facility] GFR/1.73 sq M.predicted kam g non-blacks MDRD (S/P/Bld) [Vol rate/Area]Ordered By: Babak Garcia on 12-21-2024 Estimated GFR (MDRD) Non-Af Amer 109 >60 [facility] Comment on above: mL/min/1.73m2 CKD-EP I Creatinine Equation (2020) Glomerular filtration rate ( GFR) estimation/1.73 sq m using serum, plasma, or whole bOrdered By: Babak Garcia on 12-21-2024 GFR/1.73 sq M.predicted among non-blacks MDRD (S/P/Bld) [Vol rate/Area] 109 mL/min/{1.73_m2} Normal >60 [facility] Comment on above: mL/min/1.73m2 CKD-EP I Creatinine Equation (2020) Result Comment: mL/m in/1.73m2 CKD-EPI Creatinine Equation (2020) Performed By: #### L 500.2500, L100.0100 #### [facility] Laboratory [address] [place], [place], [address] Glucose Ql (U)Ordered By: Rory Garcia on 12-21-2024 Glucose (U) [Mass/Vol] 1000 mg/dL High Normal [facility] Hemoglobin measurementOrdere d By: Babak Garcia on 12-21-2024 Hemoglobin (Bld) [Mass/Vol] 12.7 g/dL Normal 12.0-15.0 [facility] Comment on above: Performed By: #### L 500.2500, L100.0100 #### [facility] Laboratory [address] [place], [address] Immature granulocytes/100 WB C Auto (Bld)Ordered By: Babakjessi Garcia on 12-21-2024 Immature granulocytes/100 WBC (Bld) 0.400 % 0.0-0.9 [facility] Comment on above: IG% - Immature Granu locytes (promyelocytes, myelocytes and metamyelocytes) > 1% indicates that a LEFT SHIFT is Present. Influenza virus A and B and SARS-CoV-2 (COVID-19) and Respiratory syncytial virus RNAOrdered By: Babak Garcia on 12-21-2024 SARS-CoV-2 (COVID-19) RNA LUIS M+probe Ql (Unsp spec) SARS-CoV-2 (COVID 19 PCR) Abnormal [facility] International normalized rat io (INR) calculationOrdered By: Babak Garcia on 12-21-2024 INR Coag (Bld) [Relative time] 1.0 {INR} [facility] Ketones Test strip Ql (U)Ord ered By: Babak Garcia on 12-21-2024 Ketones Ql (U) Negative Negative [facility] L499.0042on 12-21-2024 Trop T High Sen 7 ng/L Normal <=14 [facility] Comment on above: Performed By: #### L 500.2500, L100.0100 #### [facility] Laboratory [address] [place], [address] L499.0043on 12-21-2024 Trop T High Sen Normal <=14 [facility] Comment on above: Result Comment: Canc elled via OM: Order cancelled - Patient discharged Performed By: #### L 500.2500, L100.0100 #### [facility] Laboratory [address] [place], [address] L501.4021on 12-21-2024 Trop T High Sen 7 ng/L Normal <=14 [facility] Comment on above: Performed By: #### M 100.678 #### [facility] Laboratory [address] [place], [address] L503.7505on 12-21-2024 proBNP < 36 Normal <=900 [facility] Comment on above: Result Comment: Hear t Failure Unlikely: < 300 pg/mL Heart Failure Likely < 50 Years: > 450 pg/mL 50-75 Years: > 900 pg/mL >75 Years: > 1800 pg/mL Performed By: #### L 500.2500, L100.0100 #### [facility] [address] [place], [address] Lactic acid measurementOrder ed By: Babak Garcia on 12-21-2024 Lactate [Moles/Vol] 1.4 mmol/L Normal 0.0-2.0 [facility] Comment on above: Order Comment: Y Performed By: #### L 500.2500, L100.0100 #### [facility] [address] [place], [address] Lymphocytes Auto (Unsp spec) [#/Vol]Ordered By: Babak Garcia on 12-21-2024 Lymphocytes (Bld) [#/Vol] 1.06 10*3/uL 0.83-4.51 [facility] M100.678on 12-21-2024 M100.678 Copy of report sent to Infection Control Printer [id number] 12/21/24 0936 SELENA. SARS-CoV-2 (COVID 19) A Positive A INFLUENZA A Negative INFLUENZA B Negative RSV PCR Negative SARS-CoV-2 (COVID 19 PCR) Normal [facility] Comment on above: Performed By: #### M 100.638 #### [facility] Laboratory [address] [place], [address] MCV (mean corpuscular volume ) determinationOrdered By: Babak Garcia on 12-21-2024 MCV (RBC) [Entitic vol] 88.6 fL Normal 81-99 [facility] Comment on above: Performed By: #### L 500.2500, L100.0100 #### [facility] [address] [place], [address] Mean corpuscular hemoglobin (MCH) determinationOrdered By: Babak Garcia on 12-21-2024 MCH (RBC) [Entitic mass] 29.5 pg Normal 27.0-32.0 [facility] Comment on above: Performed By: #### L 500.2500, L100.0100 #### [facility] Laboratory [address] [place], [place], [address] Mean corpuscular hemoglobin concentration (MCHC) determinationOrdered By: Babak Garcia on 12-21-2024 MCHC (RBC) [Mass/Vol] 33.3 g/dL Normal 32-36 [facility] Comment on above: Performed By: #### L 500.2500, L100.0100 #### [facility] Laboratory [address] [place], [place], [address] Mean platelet volume determi nationOrdered By: Babak Garcia on 12-21-2024 Platelet mean volume (Bld) [Entitic vol] 9.4 fL Normal 6.2-12.0 [facility] Comment on above: Performed By: #### L 500.2500, L100.0100 #### [facility] [address] [facility] [place], [place], [address] Microscopic analysis of urin e for red blood cells (RBC)Ordered By: Babak Garcia on 12-21-2024 Microscopic analysis of urine for red blood cells (RBC) 0 SEEN /hpf 0-5 [facility] Urine RBC 0 SEEN /hpf 0-5 [facility] Monocyte percentageOrdered B y: Babak Garcia on 12-21-2024 Monocytes/100 WBC (Bld) 4.7 % Normal 0-10 [facility] Comment on above: Performed By: #### L 500.2500, L100.0100 #### [facility] Laboratory [address] [place], [place], [address] Mucus LM Ql (Urine sed)Order ed By: Babak Garcia on 12-21-2024 Mucus Ql (Urine sed) 0 SEEN /hpf [facility] Neutrophil percentageOrdered By: Babak Garcia on 12-21-2024 Neutrophils/100 WBC (Bld) 86.0 % High 47-70 [facility] Comment on above: Performed By: #### L 500.2500, L100.0100 #### [facility] [address] [place], [address] Nitrite Test strip Ql (U)Ord ered By: Babak Garcia on 12-21-2024 Nitrite Ql (U) Negative Negative [facility] No Panel InformationOrdered By: Babak Garcia on 12-21-2024 Troponin T High Sensitivity 7 ng/L <14 [facility] AN-YjxI-Siby Natriuretic Peptide II < 36 pg/mL <900 [facility] Comment on above: Heart Failure Unlike ly: < 300 pg/mLHeart Failure Likely< 50 Years: > 450 pg/mL50-75 Years: > 900 pg/mL>75 Years: > 1800 pg/mL Nucleated red blood cell per centageOrdered By: Babak Garcia on 12-21-2024 Nucleated RBC/100 WBC (Bld) [Ratio] 0 % 0-5 [facility] Partial Thromboplast Timeon 12-21-2024 aPTT Coag (Bld) [Time] 35.4 s Normal 24.1-36.2 [facility] Comment on above: Performed By: #### L 100.0100 #### [facility] [address] [place], [address] Platelet countOrdered By: Rory Garcia on 12-21-2024 Platelets (Bld) [#/Vol] 186 10*3/uL Normal 150-450 [facility] Comment on above: Performed By: #### L 500.2500, L100.0100 #### [facility] [address] [place], [address] Potassium measurement (mass/ volume)Ordered By: Babak Garcia on 12-21-2024 Potassium [Moles/Vol] 4.0 mmol/L Normal 3.3-5.1 [facility] Comment on above: Hemolysis present, R esults could be affected. Result Comment: Hemo lysis present, Results??could be affected. ?? Performed By: #### L 500.2500, L100.0100 #### [facility] [address] [place], [address] Potassium (Unsp spec) [Mass/Vol] 4.0 mmol/L 3.3-5.1 [facility] Comment on above: Hemolysis present, R esults could be affected. Protein Test strip Ql (U)Ord ered By: Babak Garcia on 12-21-2024 Protein Ql (U) 15 mg/dl High Negative [facility] Prothrombin Time w/INRon INR Coag (PPP) [Relative time] 1.0 {INR} Normal [facility] Comment on above: Performed By: #### L 100.0100 #### [facility] [address] [place], [address] PT Coag (PPP) [Time] 13.0 s Normal 11.7-14.9 [facility] Comment on above: Performed By: #### L 100.0100 #### [facility] [address] [place], [address] Prothrombin timeOrdered By: Babak Garcia on 12-21-2024 PT Coag (PPP) [Time] 13.0 s 11.7-14.9 [facility] Serum creatinine measurement (mass/volume)Ordered By: Babak Garcia on 12-21-2024 Creatinine [Mass/Vol] 0.46 mg/dL Low 0.70-1.20 [facility] Comment on above: Performed By: #### L 500.2500, L100.0100 #### [facility] [address] [place], [address] Serum globulin measurementOr dered By: Babak Gracia on 12-21-2024 Globulin (S) [Mass/Vol] 2.6 g/dL Normal 2.2-4.2 [facility] Comment on above: Performed By: #### L 500.2500, L100.0100 #### [facility] [address] [place], [address] Serum glucose measurement (m ass/volume)Ordered By: Babak Garcia on 12-21-2024 Glucose [Mass/Vol] 124 mg/dL High 70-99 [place] Comment on above: Performed By: #### L 500.2500, L100.0100 #### [facility] [address] [place], [address] Serum or plasma alanine angulo otransferase (ALT) measurementOrdered By: Babak Garcia on 12-21-2024 ALT [Catalytic activity/Vol] 33 U/L Normal <=34 [facility] Comment on above: Performed By: #### L 500.2500, L100.0100 #### [facility] [address] [place], [address] Serum or plasma albumin lawrence urement (mass/volume)Ordered By: Babak Garcia on 12-21-2024 Albumin [Mass/Vol] 3.7 g/dL Normal 3.4-4.8 [place] Comment on above: Performed By: #### L 500.2500, L100.0100 #### [facility] [address] [place], [address] Serum or plasma albumin/glob ulin mass ratioOrdered By: Babak Garcia on 12-21-2024 Albumin/Globulin [Mass ratio] 1.4 {ratio} Normal 0.9-2.4 [facility] Comment on above: Performed By: #### L 500.2500, L100.0100 #### [facility] [address] [place], [address] Serum or plasma alkaline jakob sphatase measurementOrdered By: Babak Garcia on 12-21-2024 ALP [Catalytic activity/Vol] 108 U/L High 35-104 [facility] Serum or plasma calcium lawrence urement (mass/volume)Ordered By: Babak Garcia on 12-21-2024 Calcium [Mass/Vol] 8.1 mg/dL Normal 7.6-11.0 [place] Comment on above: Performed By: #### L 500.2500, L100.0100 #### [facility] [address] [place], [address] Serum or plasma urea nitroge n measurement (mass/volume)Ordered By: Babak Garcia on 12-21-2024 Urea nitrogen [Mass/Vol] 9 mg/dL Normal 4-19 [facility] Comment on above: Performed By: #### L 500.2500, L100.0100 #### [facility] [address] [place], [address] Sodium levelOrdered By: Juma Garcia on 12-21-2024 Sodium [Moles/Vol] 135 mmol/L Normal 133-145 [place] Comment on above: Performed By: #### L 500.2500, L100.0100 #### [facility] [address] [place], [address] Squamous epithelial cells de tection in urine sediment by light microscopyOrdered By: Babak Garcia on 12-21-2024 Epithelial cells.squamous LM Ql (Urine sed) 0 SEEN /hpf 5-10 [facility] Total proteinOrdered By: Rogelio Garcia on 12-21-2024 Protein [Mass/Vol] 6.3 g/dL 5.9-8.4 [place] Troponin T.cardiac High sens itivity method [Mass/Vol]Ordered By: Babak Garcia on 12-21-2024 Troponin T High Sensitivity 2 Hour 7 ng/L <14 [facility] Troponin T.cardiac [Mass/vol ume] in Serum or Plasma by High sensitivity methodOrdered By: Babak Garcia on 12-21-2024 Troponin T.cardiac High sensitivity method [Mass/Vol] 7 ng/L <14 [facility] Urinalysis, Completeon 12-21 RBC 0 SEEN Normal 0-5 [facility] Comment on above: Order Comment: COLLE CTOR TO SPECIFY Performed By: #### M 100.678 #### [facility] [address] [place], [address] BACTERIA 0 SEEN Normal None Seen [facility] Comment on above: Order Comment: DARVIN CTOR TO SPECIFY Performed By: #### M 100.678 #### [facility] [address] [place], [address] EPI,SQUAMOUS 0 SEEN Normal 5-10 [facility] Comment on above: Order Comment: DARVIN CTOR TO SPECIFY Performed By: #### M 100.678 #### [facility] Laboratory [address] [place], [address] Mucus Ql (Urine sed) 0 SEEN Normal [facility] Comment on above: Order Comment: DARVIN CTOR TO SPECIFY Performed By: #### M 100.678 #### [facility] Laboratory [address] [place], [address] WBC 0 SEEN Normal 0-5 [facility] Comment on above: Order Comment: DARVIN CTOR TO SPECIFY Performed By: #### M 100.678 #### [facility] Laboratory [address] [place], [address] Urine blood detectionOrdered By: Babak Garcia on 12-21-2024 Urine Occult Blood Negative Negative [place] Urine clarityOrdered By: Rogelio Garcia on 12-21-2024 Clarity (U) Clear Clear [facility] Urine color determinationOrd ered By: Babak Garcia on 12-21-2024 Color (U) Yellow Yellow [facility] Urine cultureOrdered By: Rogelio Garcia on 12-21-2024 Bacteria identified Cx Nom (U) Mixed Gram Pos & Gram Neg Org Abnormal [facility] Urine glucose detectionOrder ed By: Babak Garcia on 12-21-2024 Glucose Ql (U) 1000 mg/dl High Normal [facility] Urine leukocyte esterase det ection by dipstickOrdered By: Babak Garcia on 12-21-2024 Leukocyte esterase Test strip Ql (U) Negative Negative [facility] Urine pHOrdered By: Babak davidson on 12-21-2024 pH (U) 6.5 [pH] 5.0 - 8.0 [facility] Urine sediment bacteria coun t by microscopy (number/high power field)Ordered By: Babak Garcia on 12-21-2024 Bacteria LM.HPF (Urine sed) [#/Area] 0 /[HPF] None Seen [facility] Urine specific gravity measu rementOrdered By: Babak Garcia on 12-21-2024 Specific gravity (U) [Rel density] 1.010 1.002-1.030 [facility] Urine urobilinogen measureme ntOrdered By: Babak Garcia on 12-21-2024 Urobilinogen Ql (U) Normal mg/dl Normal [facility] Urobilinogen Ql (U)Ordered B y: Babak Garcia on 12-21-2024 Urine Urobilinogen Normal mg/dl Normal [facility] White blood cell (WBC) count Ordered By: Babak Garcia on 12-21-2024 WBC (Bld) [#/Vol] 12.3 10*3/uL High 4.4-11.0 [facility] Comment on above: Performed By: #### L 500.2500, L100.0100 #### [facility] Laboratory [address] [place], [place] [address]zander [address]villo. [place], [place], [id number] White blood cell countOrdere d By: Babak Garcia on 12-21-2024 Urine WBC 0 SEEN /hpf 0-5 [facility] White blood cell count 0 SEEN /hpf 0-5 [facility] aPTT Coag (PPP) [Time]Ordere d By: Babak Garcia on 12-21-2024 aPTT Coag (Bld) [Time] 35.4 s 24.1-36.2 [facility] Absolute lymphocyte countOrd ered By: Lorraine Springer on 12-08-2024 Lymphocytes Auto (Unsp spec) [#/Vol] 2.50 10*3/uL 0.83-4.51 [facility] Absolute neutrophil countOrd ered By: Lorraine Springer on 12-08-2024 Neutrophils (Bld) [#/Vol] 6.5 10*3/uL 2.0-7.7 [facility] Automated lymphocyte count a s percentage of total leukocytesOrdered By: Moondonald Hermilodinorah on 12-08-2024 Lymphocytes/100 WBC Auto (Unsp spec) 25.5 % 19-41 [facility] Basophil percentageOrdered B y: Lorraine Springer on 12-08-2024 Basophils/100 WBC (Bld) 0.6 % 0-1 [facility] CBC W/Diff, Automatedon 11-14 Absolute Lymph 2.50 X10 3/uL Normal 0.83-4.51 [facility] Comment on above: Performed By: #### L 500.2500, L100.0100 #### [facility] Laboratory [address] [place], [address] Absolute Neut 6.5 X10 3/uL Normal 2.0-7.7 [facility] Comment on above: Performed By: #### L 500.2500, L100.0100 #### [facility] Laboratory [address] [place], [address] Basophils/100 WBC (Bld) 0.6 % Normal 0-1 [facility] Comment on above: Performed By: #### L 500.2500, L100.0100 #### [facility] Laboratory [address] [place], [address] Eosinophils/100 WBC (Bld) 0.2 % Normal 0-5 [facility] Comment on above: Performed By: #### L 500.2500, L100.0100 #### [facility] Laboratory [address] [place], [address] Erythrocyte distribution width (RBC) [Ratio] 14.5 % Normal 11.6-14.6 [facility] Comment on above: Performed By: #### L 500.2500, L100.0100 #### [facility] Laboratory [address] [place], [address] Hematocrit (Bld) [Volume fraction] 41.7 % Normal 37-47 [facility] Comment on above: Performed By: #### L 500.2500, L100.0100 #### [facility] Laboratory [address] [place], [address] Hemoglobin (Bld) [Mass/Vol] 13.7 g/dL Normal 12.0-15.0 [facility] Comment on above: Performed By: #### L 500.2500, L100.0100 #### [facility] Laboratory [address] [place], [address] IG% 0.500 Normal 0.0-0.9 [facility] Comment on above: Result Comment: IG% - Immature Granulocytes (promyelocytes, myelocytes and metamyelocytes) > 1% indicates that a LEFT SHIFT is Present. Performed By: #### L 500.2500, L100.0100 #### [facility] Laboratory [address] [place], [address] Lymphocytes/100 WBC (Bld) 25.5 % Normal 19-41 [facility] Comment on above: Performed By: #### L 500.2500, L100.0100 #### [facility] Laboratory [address] [place], [address] MCH (RBC) [Entitic mass] 29.3 pg Normal 27.0-32.0 [facility] Comment on above: Performed By: #### L 500.2500, L100.0100 #### [facility] Laboratory [address] [place], [address] MCHC (RBC) [Mass/Vol] 32.9 g/dL Normal 32-36 [facility] Comment on above: Performed By: #### L 500.2500, L100.0100 #### [facility] Laboratory [address] [place], [address] MCV (RBC) [Entitic vol] 89.3 fL Normal 81-99 [facility] Comment on above: Performed By: #### L 500.2500, L100.0100 #### [facility] Laboratory [address] [place], [address] Monocytes/100 WBC (Bld) 7.0 % Normal 0-10 [facility] Comment on above: Performed By: #### L 500.2500, L100.0100 #### [facility] Laboratory [address] [place], [address] Neutrophils/100 WBC (Bld) 66.2 % Normal 47-70 [facility] Comment on above: Performed By: #### L 500.2500, L100.0100 #### [facility] Laboratory [address] [place], [address] Nucleated RBC (Bld) [#/Vol] 0 10*3/uL Normal 0-5 [facility] Comment on above: Performed By: #### L 500.2500, L100.0100 #### [facility] Laboratory [address] [place], [address] Platelet mean volume (Bld) [Entitic vol] 9.5 fL Normal 6.2-12.0 [facility] Comment on above: Performed By: #### L 500.2500, L100.0100 #### [facility] Laboratory [address] [place], [address] Platelets (Bld) [#/Vol] 225 10*3/uL Normal 150-450 [facility] Comment on above: Performed By: #### L 500.2500, L100.0100 #### [facility] Laboratory [address] [place], [address] RBC (Bld) [#/Vol] 4.67 10*6/uL Normal 4.2-5.4 [facility] Comment on above: Performed By: #### L 500.2500, L100.0100 #### [facility] Laboratory [address] [place], [address] RDW SD 46.8 fl High 35.1-43.9 [facility] Comment on above: Performed By: #### L 500.2500, L100.0100 #### [facility] Laboratory [address] [place], [address] WBC (Bld) [#/Vol] 9.8 10*3/uL Normal 4.4-11.0 [place] Comment on above: Performed By: #### L 500.2500, L100.0100 #### [facility] Laboratory [address] [place], [address] Eosinophil percentageOrdered By: Lorraine Springer on 12-08-2024 Eosinophils/100 WBC (Bld) 0.2 % 0-5 [facility] Erythrocyte distribution wid th ratioOrdered By: Lorraine Springer on 12-08-2024 Erythrocyte distribution width (RBC) [Ratio] 14.5 % 11.6-14.6 [facility] Erythrocyte distribution wid th standard deviationOrdered By: Lorraine Springer on 12-08-2024 Erythrocyte distribution width (RBC) [Entitic vol] 46.8 fL High 35.1-43.9 [facility] Erythrocyte distribution width (RBC) [Ratio] 46.8 fl High 35.1-43.9 [facility] Hematocrit Auto (Bld) [Volum e fraction]Ordered By: Lorraine Springer on 12-08-2024 Hematocrit (Bld) [Volume fraction] 41.7 % 37-47 [facility] Hemoglobin measurementOrdere d By: Lorraine Springer on 12-08-2024 Hemoglobin (Bld) [Mass/Vol] 13.7 g/dL 12.0-15.0 [facility] Immature granulocytes/100 WB C Auto (Bld)Ordered By: Lorraine Springer on 12-08-2024 Immature granulocytes/100 WBC (Bld) 0.500 % 0.0-0.9 [facility] Comment on above: IG% - Immature Granu locytes (promyelocytes, myelocytes and metamyelocytes) > 1% indicates that a LEFT SHIFT is Present. Lymphocytes Auto (Unsp spec) [#/Vol]Ordered By: Lorraine Springer on 12-08-2024 Lymphocytes (Bld) [#/Vol] 2.50 10*3/uL 0.83-4.51 [facility] Lymphocytes/100 WBC Auto (Un sp spec)Ordered By: Lorraine Springer on 12-08-2024 Lymphocytes/100 WBC (Bld) 25.5 % 19-41 [facility] MCV (mean corpuscular volume ) determinationOrdered By: Lorraine Springer on 12-08-2024 MCV (RBC) [Entitic vol] 89.3 fL 81-99 [facility] Mean corpuscular hemoglobin (MCH) determinationOrdered By: Lorraine Springer on 12-08-2024 MCH (RBC) [Entitic mass] 29.3 pg 27.0-32.0 [facility] Mean corpuscular hemoglobin concentration (MCHC) determinationOrdered By: Lorraine Springer on 12-08-2024 MCHC (RBC) [Mass/Vol] 32.9 g/dL 32-36 [facility] Mean platelet volume determi nationOrdered By: Lorraine Springer on 12-08-2024 Platelet mean volume (Bld) [Entitic vol] 9.5 fL 6.2-12.0 [facility] Monocyte percentageOrdered B y: Lorraine Springer on 12-08-2024 Monocytes/100 WBC (Bld) 7.0 % 0-10 [facility] Neutrophil percentageOrdered By: Lorraine Springer on 12-08-2024 Neutrophils/100 WBC (Bld) 66.2 % 47-70 [facility] Nucleated red blood cell per centageOrdered By: Lorraine Springer on 12-08-2024 Nucleated RBC/100 WBC (Bld) [Ratio] 0 % 0-5 [facility] Platelet countOrdered By: Anastacia Springer on 12-08-2024 Platelets (Bld) [#/Vol] 225 10*3/uL 150-450 [facility] RBC Auto (Bld) [#/Vol]Ordere d By: Lorraine Springer on 12-08-2024 RBC (Bld) [#/Vol] 4.67 10*6/uL 4.2-5.4 [facility] White blood cell (WBC) count Ordered By: Lorraine Springer on 12-08-2024 WBC (Bld) [#/Vol] 9.8 10*3/uL 4.4-11.0 [place] CNOVon 12-07-2024 CNOV Normal [facility] XR CHEST 2V FRONTAL/LATon XR CHEST 2V FRONTAL/LAT Normal C [facility] XR Chest PA and Lateralon IMPRESSION: No acute radiographic abnormality. Sound Art Instructor: PSCB Transcribe Date/Time: Dec 07 2024 12:05P Dictated by : LISET MAY MD This examination was interpreted and the report reviewed and electronically signed by: LISET MAY MD on Dec 07 2024 12:06PM [facility] DIVISION OF RADIOLOGY * * *Final [...] soft tissues: Unremarkable. DIVISION OF RADIOLOGY Provider, [facility] * * *Final [...] Unremarkable. IMPRESSION IMPRESSION: No acute radiographic abnormality. Sound Art Instructor: PSCB Transcribe Date/Time: Dec 07 2024 12:05P Dictated by : LISET MAY MD This examination was interpreted and the report reviewed and electronically signed by: LISET MAY MD on Dec 07 2024 12:06PM EST [facility] Radiology [facility]narrative[facility] Chest PA and LateralOrder ed By: Ccf Provider on 12-07-2024 [facility] CNPNon 12-03-2024 CNPN Normal [facility] PVR ANK/LARRY/TOE ASHELY VAS LAB on 12-01-2024 PVR ANK/LARRY/TOE ASHELY VAS LAB Normal [facility] CNPNon 11-29-2024 CNPN Normal [facility] CBC W/Diff, Automatedon Absolute Lymph 1.87 X10 3/uL Normal 0.83-4.51 [facility] Comment on above: Performed By: #### L 100.0100 #### [facility] Laboratory [address] [place], [address] Absolute Neut 11.3 X10 3/uL High 2.0-7.7 [facility] Comment on above: Performed By: #### L 100.0100 #### [facility] Laboratory [address] [place], [address] Basophils/100 WBC (Bld) 0.5 % Normal 0-1 [facility] Comment on above: Performed By: #### L 100.0100 #### [facility] Laboratory [address] [place], [address] Eosinophils/100 WBC (Bld) 0.1 % Normal 0-5 [facility] Comment on above: Performed By: #### L 100.0100 #### [facility] Laboratory [address] [place], [address] Erythrocyte distribution width (RBC) [Ratio] 14.3 % Normal 11.6-14.6 [facility] Comment on above: Performed By: #### L 100.0100 #### [facility] Laboratory [address] [place], [address] Hematocrit (Bld) [Volume fraction] 41.1 % Normal 37-47 [facility] Comment on above: Performed By: #### L 100.0100 #### [facility] Laboratory [address] [place], [address] Hemoglobin (Bld) [Mass/Vol] 13.3 g/dL Normal 12.0-15.0 [facility] Comment on above: Performed By: #### L 100.0100 #### [facility] Laboratory [address] [place], [address] IG% 3.400 High 0.0-0.9 [facility] Comment on above: Result Comment: IG% - Immature Granulocytes (promyelocytes, myelocytes and metamyelocytes) > 1% indicates that a LEFT SHIFT is Present. Performed By: #### L 100.0100 #### [facility] Laboratory [address] [place], [address] Lymphocytes/100 WBC (Bld) 13.1 % Low 19-41 [facility] Comment on above: Performed By: #### L 100.0100 #### [facility] Laboratory [address] [place], [address] MCH (RBC) [Entitic mass] 28.9 pg Normal 27.0-32.0 [facility] Comment on above: Performed By: #### L 100.0100 #### [facility] Laboratory [address] [place], [address] MCHC (RBC) [Mass/Vol] 32.4 g/dL Normal 32-36 [facility] Comment on above: Performed By: #### L 100.0100 #### [facility] Laboratory [address] [place], [address] MCV (RBC) [Entitic vol] 89.2 fL Normal 81-99 [facility] Comment on above: Performed By: #### L 100.0100 #### [facility] Laboratory [address] [place], [address] Monocytes/100 WBC (Bld) 3.7 % Normal 0-10 [facility] Comment on above: Performed By: #### L 100.0100 #### [facility] Laboratory [address] [place], [address] Neutrophils/100 WBC (Bld) 79.2 % High 47-70 [facility] Comment on above: Performed By: #### L 100.0100 #### [facility] Laboratory [address] [place], [address] Nucleated RBC (Bld) [#/Vol] 0 10*3/uL Normal 0-5 [facility] Comment on above: Performed By: #### L 100.0100 #### [facility] Laboratory [address] [place], [address] Platelet mean volume (Bld) [Entitic vol] 9.5 fL Normal 6.2-12.0 [facility] Comment on above: Performed By: #### L 100.0100 #### [facility] Laboratory [address] [place], [address] Platelets (Bld) [#/Vol] 262 10*3/uL Normal 150-450 [facility] Comment on above: Performed By: #### L 100.0100 #### [facility] Laboratory [address] [place], [address] RBC (Bld) [#/Vol] 4.61 10*6/uL Normal 4.2-5.4 [facility] Comment on above: Performed By: #### L 100.0100 #### [facility] Laboratory [address] [place], [address] RDW SD 45.5 fl High 35.1-43.9 [facility] Comment on above: Performed By: #### L 100.0100 #### [facility] Laboratory [address] [place], [id number] WBC (Bld) [#/Vol] 14.3 10*3/uL High 4.4-11.0 [facility] Comment on above: Performed By: #### L 100.0100 #### [facility] Laboratory [address] [place], [id number] Culture, Blood (WB)on 2024 CUB Blood cultures x2, f rom two different sites No growth in 5 days. Normal [facility] Comment on above: Performed By: #### L 500.4050, L501.4020, L501.2450, L100.0500 #### [facility] Laboratory [address] [place], [id number] Vitamin D 1,25-Dihydroxyon 0 11-13-2024 VIT D 1,25 DIHY 106.0 pg/mL Abnormal 24.8-81.5 [facility] Comment on above: Result Comment: Perf ormed at: [facility] [id number] Boat Dispatcher: Darcy Schulz MD, Phone: [phone] Performed By: #### L 100.0100 #### [facility] Laboratory [address] [place], [id number] BNP (brain natriuretic pepti de measurement)Ordered By: Hesham Rod on 11-12-2024 Natriuretic peptide B (Bld) [Mass/Vol] 24.1 pg/mL 0-100 [facility] BNP,B-Type NATRIURETIC PEPTI Yair 11-12-2024 Natriuretic peptide B (Bld) [Mass/Vol] 24.1 pg/mL Normal 0-100 [facility] Comment on above: Performed By: #### L 500.2500, L100.0100 #### [facility] Laboratory [address] [place], [address] Bedside Glucoseon 11-12-2024 FINGERSTICK GLU 213 mg/dL High 74-106 [facility] Comment on above: Result Comment: DANIEL GEMENT OF PATIENT CARE PER NURSING PROTOCOL Performed By: #### L 500.2500, L100.0100 #### [facility] Laboratory [address] [place], [address] FINGERSTICK GLU 230 mg/dL High 74-106 [facility] Comment on above: Result Comment: DANIEL GEMENT OF PATIENT CARE PER NURSING PROTOCOL Performed By: #### M 100.678 #### [facility] Laboratory [address] [place], [place], [address] Chest 1 View (Portable)on Chest 1 View (Portable) [facility] Imaging Services [address] [place], [place] [address] Chest 1 View (Portable) MR#: [id number] Acct: [id number] Name: BRENDA LE Rep #: [id number] : 1965 F 58 From: Adriano Mejia DO PCP: Shelia Salmon, HARMONICA MAKER Status: ADM IN Study: Chest 1 View (Portable) Date of Exam: 11/12/24 Exam# [id number] Ordering Dr: Hesham Amato DO PROCEDURE: CHEST [...] right lower lobe infiltrate . Reading Location: [facility] CC: HARMONICA MAKER Shelia Salmon; Dr. Hesham Amato DO Sound Art Instructor: Signed Normal [facility] Discharge Instructionon 10-15 Discharge Instruction [facility] Medical Records Department [address] [place] [address] Instructions for Home/Discharge Instructions 11/12/24 1016 MR#: [id number] Acct: [id number] Name: BRENDA LE Rep #: [id number] : 1965 58 From: Ana Lilia Lebron DO PCP: Shelia Salmon, HARMONICA MAKER Status:ADM IN Discharge Instructions Diet Discharge Diet: [...] Salmon; Dr. Hesham Amato DO Signed Normal [facility] Gl[facility] deOrdered By: Ana Lilia Lebron on 11-12-2024 Bedside Glucose (Misc Panel) 213 mg/dL High 74-106 [facility] Comment on above: MANAGEMENT OF PATIEN T CARE PER NURSING PROTOCOL Bedside Glucoseon 11-11-2024 FINGERSTICK GLU 257 mg/dL High 74-106 [facility] Comment on above: Result Comment: DANIEL GEMENT OF PATIENT CARE PER NURSING PROTOCOL Performed By: #### M 100.638 #### [facility] Laboratory [address] [place], [address] FINGERSTICK GLU 315 mg/dL High 74-106 [facility] Comment on above: Result Comment: DANIEL GEMENT OF PATIENT CARE PER NURSING PROTOCOL Performed By: #### L 500.2500, L100.0100 #### [facility] Laboratory [address] [place], [address] FINGERSTICK GLU 205 mg/dL High -106 [facility] Comment on above: Result Comment: DANIEL GEMENT OF PATIENT CARE PER NURSING PROTOCOL Performed By: #### L 500.2500, L100.0100 #### [facility] Laboratory [address] [place], [address] FINGERSTICK GLU 247 mg/dL High -106 [facility] Comment on above: Result Comment: DANIEL GEMENT OF PATIENT CARE PER NURSING PROTOCOL Performed By: #### M 100.678 #### [facility] Laboratory [address] [place], [address] FINGERSTICK GLU 178 mg/dL High [facility]106 [facility] Comment on above: Result Comment: DANIEL GEMENT OF PATIENT CARE PER NURSING PROTOCOL Performed By: #### L 500.2500, L100.0100 #### [facility] Laboratory [address] [place], [address] M100.019on 11-11-2024 M100.019 Negative Normal [facility] Comment on above: Performed By: #### M 100.019 #### [facility] Laboratory [address] [place], [address] [id number] By: Hesham Rod on 11-11-2024 SARS-CoV-2 (COVID-19) RNA LUIS M+probe Ql (Unsp spec) [facility] 1,25-dihydroxyvitamin D3 [Ma ss/Vol]Ordered By: Hesham Rod on 11-10-2024 Vitamin D 1,25-Dihydroxy 106.0 pg/mL High 24.8-81.5 [facility] Comment on above: Performed at: [address] [id number] Director: Darcy Schulz MD, Phone: [phone] Absolute neutrophil countOrd ered By: Hesham Rod on 11-10-2024 Neutrophils (Bld) [#/Vol] 8.7 10*3/uL High 2.0-7.7 [facility] Albumin to globulin ratioOrd ered By: Hesham Rod on 11-10-2024 Albumin/Globulin [Mass ratio] 0.7 {ratio} Low 0.9-2.4 [facility] Basophil percentageOrdered B y: Hesham Rod on 11-10-2024 Basophils/100 WBC (Bld) 0.2 % 0-1 [facility] Bedside Glucoseon 11-10-2024 FINGERSTICK GLU 195 mg/dL High 74-106 [facility] Comment on above: Result Comment: DANIEL GEMENT OF PATIENT CARE PER NURSING PROTOCOL Performed By: #### M 100.678 #### [facility] Laboratory [address] [place], [address] FINGERSTICK GLU 245 mg/dL High [address] [place] [address] Comment on above: Result Comment: DANIEL GEMENT OF PATIENT CARE PER NURSING PROTOCOL Performed By: #### M 100.678 #### [facility] [facility] [address] [place], [address] FINGERSTICK GLU 278 mg/dL High [address] [place] [address] Comment on above: Result Comment: DANIEL GEMENT OF PATIENT CARE PER NURSING PROTOCOL Performed By: #### L 500.2500, L100.0100 #### [facility] [address] [place], [address] FINGERSTICK GLU 192 mg/dL High 74-106 [facility] Comment on above: Result Comment: DANIEL COLMENARES OF PATIENT CARE PER NURSING PROTOCOL Performed By: #### M 100.638 #### [facility] [address] [place], [address] Bilirubin, totalOrdered By: Hesham Rod on 11-10-2024 Bilirubin [Mass/Vol] 0.50 mg/dL 0.20-1.00 [facility] Comment on above: Slight Lipemia, Resu lt may be falsely increased. For patients on eltrombopag therapy, use of Dimension [place] TBIL is not recommended. Blood urea nitrogen (BUN)/cr eatinine ratioOrdered By: Hesham Rod on 11-10-2024 Urea nitrogen/Creatinine [Mass ratio] 23.0 mg/mg High 10-20 [facility] CBC W/Diff, Automatedon 10-14 MCHC (RBC) [Mass/Vol] 32.0 g/dL Normal 32-36 [facility] Comment on above: Result Comment: H H CHNAGE Performed By: #### L 500.2500, L100.0100 #### [facility] [address] [place], [address] Absolute Lymph 0.92 X10 3/uL Normal 0.83-4.51 [facility] Comment on above: Performed By: #### L 500.2500, L100.0100 #### [facility] [address] [place], [address] Absolute Neut 8.7 X10 3/uL High 2.0-7.7 [facility] Comment on above: Performed By: #### L 500.2500, L100.0100 #### [facility] [address] [place], [address] Basophils/100 WBC (Bld) 0.2 % Normal 0-1 [facility] Comment on above: Performed By: #### L 500.2500, L100.0100 #### [facility] [address] [place], [address] Eosinophils/100 WBC (Bld) 0.0 % Normal 0-5 [facility] Comment on above: Performed By: #### L 500.2500, L100.0100 #### [facility] [address] [place], [address] Erythrocyte distribution width (RBC) [Ratio] 14.3 % Normal 11.6-14.6 [facility] Comment on above: Performed By: #### L 500.2500, L100.0100 #### [facility] [address] [place], [address] Hematocrit (Bld) [Volume fraction] 37.8 % Normal 37-47 [facility] Comment on above: Performed By: #### L 500.2500, L100.0100 #### [facility] [address] [place], [address] Hemoglobin (Bld) [Mass/Vol] 12.1 g/dL Normal 12.0-15.0 [facility] Comment on above: Performed By: #### L 500.2500, L100.0100 #### [facility] [address] [place], [address] IG% 0.700 Normal 0.0-0.9 [facility] Comment on above: Result Comment: IG% - Immature Granulocytes (promyelocytes, myelocytes and metamyelocytes) > 1% indicates that a LEFT SHIFT is Present. Performed By: #### L 500.2500, L100.0100 #### [facility] [address] [place], [address] Lymphocytes/100 WBC (Bld) 9.3 % Low 19-41 [facility] Comment on above: Performed By: #### L 500.2500, L100.0100 #### [facility] [address] [place], [address] MCH (RBC) [Entitic mass] 28.6 pg Normal 27.0-32.0 [facility] Comment on above: Performed By: #### L 500.2500, L100.0100 #### [facility] [address] [place], [address] MCV (RBC) [Entitic vol] 89.4 fL Normal 81-99 [facility] Comment on above: Performed By: #### L 500.2500, L100.0100 #### [facility] [address] [place], [address] Monocytes/100 WBC (Bld) 1.6 % Normal 0-10 [facility] Comment on above: Performed By: #### L 500.2500, L100.0100 #### [facility] [address] [place], [address] Neutrophils/100 WBC (Bld) 88.2 % High 47-70 [facility] Comment on above: Performed By: #### L 500.2500, L100.0100 #### [facility] [address] [place], [address] Nucleated RBC (Bld) [#/Vol] 0 10*3/uL Normal 0-5 [facility] Comment on above: Performed By: #### L 500.2500, L100.0100 #### [facility] [address] [place], [address] Platelet mean volume (Bld) [Entitic vol] 9.2 fL Normal 6.2-12.0 [facility] Comment on above: Performed By: #### L 500.2500, L100.0100 #### [facility] [address] [place], [address] Platelets (Bld) [#/Vol] 223 10*3/uL Normal 150-450 [facility] Comment on above: Performed By: #### L 500.2500, L100.0100 #### [facility] [address] [place], [address] RBC (Bld) [#/Vol] 4.23 10*6/uL Normal 4.2-5.4 [facility] Comment on above: Performed By: #### L 500.2500, L100.0100 #### [facility] [address] [place], [address] RDW SD 46.2 fl High 35.1-43.9 [facility] Comment on above: Performed By: #### L 500.2500, L100.0100 #### [facility] [address] [place], [address] WBC (Bld) [#/Vol] 9.9 10*3/uL Normal 4.4-11.0 [place] Comment on above: Performed By: #### L 500.2500, L100.0100 #### [facility] [address] [place], [address] CNPNon 11-10-2024 CNPN Normal [facility] Carbon dioxide measurementOr dered By: Hesham Rod on 11-10-2024 CO2 [Moles/Vol] 22.0 mmol/L 21.0-32.0 [facility] Comment on above: Slight Lipemia, Resu lt may be falsely increased. Chloride measurementOrdered By: Hesham Rod on 11-10-2024 Chloride [Moles/Vol] 104 mmol/L 98-107 [facility] Comprehensive Metabolic Prof ilon 11-10-2024 Albumin [Mass/Vol] 3.1 g/dL Low 3.2-5.0 [place] Comment on above: Performed By: #### L 500.2500, L100.0100 #### [facility] [address] [place], [address] Albumin/Globulin [Mass ratio] 0.7 {ratio} Low 0.9-2.4 [facility] Comment on above: Performed By: #### L 500.2500, L100.0100 #### [facility] [address] [place], [address] ALK P 159 U/L High 45-117 [facility] Comment on above: Performed By: #### L 500.2500, L100.0100 #### [facility] [address] [place], [address] ALT [Catalytic activity/Vol] 90 U/L High 13-56 [facility] Comment on above: Result Comment: Slig ht Lipemia, Result may be falsely increased. Performed By: #### L 500.2500, L100.0100 #### [facility] [address] [place], [address] AST [Catalytic activity/Vol] 50 U/L High 15-37 [facility] Comment on above: Result Comment: Slig ht Lipemia, Result may be falsely increased. Performed By: #### L 500.2500, L100.0100 #### [facility] [address] [place], [address] Bilirubin [Mass/Vol] 0.50 mg/dL Normal 0.20-1.00 [facility] Comment on above: Result Comment: Slig ht Lipemia, Result may be falsely increased. For patients on eltrombopag therapy, use of Dimension [place] TBIL is not recommended. Performed By: #### L 500.2500, L100.0100 #### [facility] [address] [place], [address] BUN/CRE 23.0 RATIO High 10-20 [facility] Comment on above: Performed By: #### L 500.2500, L100.0100 #### [facility] [address] [place], [address] CA,Total 8.5 mg/dL Normal 8.5-10.1 [facility] Comment on above: Result Comment: Slig ht Lipemia, Result may be falsely increased. Performed By: #### L 500.2500, L100.0100 #### [facility] [address] [place], [address] Chloride [Moles/Vol] 104 mmol/L Normal 98-107 [facility] Comment on above: Performed By: #### L 500.2500, L100.0100 #### [facility] [address] [place], [address] CO2 [Moles/Vol] 22.0 mmol/L Normal 21.0-32.0 [facility] Comment on above: Result Comment: Slig ht Lipemia, Result may be falsely increased. Performed By: #### L 500.2500, L100.0100 #### [facility] [address] [place], [address] Creatinine [Mass/Vol] 0.43 mg/dL Low 0.55-1.02 [facility] Comment on above: Result Comment: Slig ht Lipemia, Result may be falsely increased. The validity of the calculated GFR GFRAA in patients over 70 years has not been determined. Clinical correlation is essential. Performed By: #### L 500.2500, L100.0100 #### [facility] [address] [place], [address] ECRCL 135.92 ml/min Normal [facility] Comment on above: Performed By: #### L 500.2500, L100.0100 #### [facility] [address] [place], [address] EST GFR - AA 190 mL/min Normal >60 [facility] Comment on above: Result Comment: Afri can [place] GFR Calc Performed By: #### L 500.2500, L100.0100 #### [facility] [address] [place], [address] GAP 10 Normal 5-15 [facility] Comment on above: Performed By: #### L 500.2500, L100.0100 #### [facility] [address] [place], [address] GFR/1.73 sq M.predicted among non-blacks MDRD (S/P/Bld) [Vol rate/Area] 157 mL/min/{1.73_m2} Normal >60 [facility] Comment on above: Result Comment: Non- GFR Calc Performed By: #### L 500.2500, L100.0100 #### [facility] [address] [place], [address] Globulin (S) [Mass/Vol] 4.3 g/dL High 2.2-4.2 [facility] Comment on above: Performed By: #### L 500.2500, L100.0100 #### [facility] [address] [place], [address] Glucose [Mass/Vol] 179 mg/dL High 74-106 [place] Comment on above: Result Comment: Slig ht Lipemia, Result may be falsely increased. Fasting Glucose result greater than or equal to 126 mg/dL suggests DIABETES MELLITUS per A.D.A. criteria. Performed By: #### L 500.2500, L100.0100 #### [facility] [address] [place], [address] Potassium [Moles/Vol] 3.8 mmol/L Normal 3.5-5.1 [facility] Comment on above: Result Comment: Slig ht Lipemia, Result may be falsely increased. Performed By: #### L 500.2500, L100.0100 #### [facility] [address] [place], [address] Sodium [Moles/Vol] 136 mmol/L Normal 136-145 [place] Comment on above: Performed By: #### L 500.2500, L100.0100 #### [facility] [address] [place], [address] T PROT 7.4 g/dL Normal 6.4-8.2 [facility] Comment on above: Result Comment: Slig ht Lipemia, Result may be falsely increased. Performed By: #### L 500.2500, L100.0100 #### [facility] [address] [place], [address] Urea nitrogen [Mass/Vol] 10 mg/dL Normal 7-18 [facility] Comment on above: Result Comment: Slig ht Lipemia, Result may be falsely increased. Performed By: #### L 500.2500, L100.0100 #### [facility] [address] [place], [address] Eosinophil percentageOrdered By: Hesham Rod on 11-10-2024 Eosinophils/100 WBC (Bld) 0.0 % 0-5 [facility] Erythrocyte distribution wid th ratioOrdered By: Hesham Rod on 11-10-2024 Erythrocyte distribution width (RBC) [Ratio] 14.3 % 11.6-14.6 [facility] Erythrocyte distribution wid th standard deviationOrdered By: Hesham Rod on 11-10-2024 Erythrocyte distribution width (RBC) [Entitic vol] 46.2 fL High 35.1-43.9 [facility] Estimated glomerular filtrat ion rate (GFR) AmericanOrdered By: Hesham Rod on 11-10-2024 Estimated GFR (MDRD) Amer 190 mL/min >60 [facility] Comment on above: GFR Calc Estimation of creatinine epi aranceOrdered By: Hesham Rod on 11-10-2024 Estimated Creatinine Clearance Calc 135.92 ml/min [facility] Glomerular filtration rate ( GFR) estimationOrdered By: Hesham Rod on 11-10-2024 Estimated GFR (MDRD) Non-Af Amer 157 mL/min >60 [facility] Comment on above: Non- GFR Calc Glucose measurementOrdered B y: Hesham Rod on 11-10-2024 Glucose [Mass/Vol] 179 mg/dL High 74-106 [place] Comment on above: Slight Lipemia, Resu lt may be falsely increased.Fasting Glucose result greater than or equal to 126 mg/dL suggests DIABETES MELLITUS per A.D.A. criteria. Hematocrit Auto (Bld) [Volum e fraction]Ordered By: Hesham Rod on 11-10-2024 Hematocrit (Bld) [Volume fraction] 37.8 % 37-47 [facility] Hemoglobin A1con 11-10-2024 HbA1c (Bld) [Mass fraction] 6.8 % High 3.8-5.6 [facility] Comment on above: Result Comment: Norm al < 5.7 % Prediabetic 5.7 - 6.4 % Diabetic >or= 6.5 % Please note range changes. Performed By: #### L 100.0100 #### [facility] [address] [place], [place], [id number] Hemoglobin A1c percentageOrd ered By: Hesham Rod on 11-10-2024 HbA1c (Bld) [Mass fraction] 6.8 % High 3.8-5.6 [facility] Comment on above: Normal < 5.7 % Predi abetic 5.7 - 6.4 % Diabetic >or= 6.5 % Please note range changes. Hemoglobin measurementOrdere d By: Hesham Rod on 11-10-2024 Hemoglobin (Bld) [Mass/Vol] 12.1 g/dL 12.0-15.0 [facility] Immature granulocytes/100 WB C Auto (Bld)Ordered By: Hesham Rod on 11-10-2024 Immature granulocytes/100 WBC (Bld) 0.700 % 0.0-0.9 [facility] Comment on above: IG% - Immature Granu locytes (promyelocytes, myelocytes and metamyelocytes) > 1% indicates that a LEFT SHIFT is Present. L. pneumophila Ag Ql (U)Orde red By: Hesham Rod on 11-10-2024 Legionella Antigen [facility] - Chemistry and C hemistry - challengeOrdered By: Hesham Rod on 11-10-2024 AST [Catalytic activity/Vol] 50 U/L High 15-37 [facility] Comment on above: Slight Lipemia, Resu lt may be falsely increased. Legionella Antigen Urineon 0 11-10-2024 LEGU URINE, CLEAN CATCH Legionella Antigen result interpretation: L pneumo Ag Ur Ql Negative Presumptive negative for Legionella pneumophila serogroup 1 antigen in urine, suggesting no recent or current infection. Legionella Ag, Urine Negative (See interpretation below) Normal [facility] Comment on above: Performed By: #### M 100.638 #### [facility] [address] [place], [address] Lymphocytes Auto (Unsp spec) [#/Vol]Ordered By: Hesham Rod on 11-10-2024 Lymphocytes (Bld) [#/Vol] 0.92 10*3/uL 0.83-4.51 [facility] Lymphocytes/100 WBC Auto (Un sp spec)Ordered By: Hesham Rod on 11-10-2024 Lymphocytes/100 WBC (Bld) 9.3 % Low 19-41 [facility] M R Staph Aureus DNA by PCRo n 11-10-2024 MRSA DNA ASSAY Negative Normal Negative [facility] Comment on above: Performed By: #### M 100.638 #### [facility] [address] [place], [address] MCV (mean corpuscular volume ) determinationOrdered By: Hesham Rod on 11-10-2024 MCV (RBC) [Entitic vol] 89.4 fL 81-99 [facility] MRSA detection PCROrdered By : Hesham Rod on 11-10-2024 Methicillin-Resist S.aureus DNA PCR Negative Negative [facility] Magnesiumon 11-10-2024 Magnesium [Mass/Vol] 2.2 mg/dL Normal 1.6-2.6 [facility] Comment on above: Result Comment: Slig ht Lipemia, Result may be falsely increased. Performed By: #### L 500.2500, L100.0100 #### [facility] [address] [place], [address] Magnesium measurementOrdered By: Hesham Rod on 11-10-2024 Magnesium [Mass/Vol] 2.2 mg/dL 1.6-2.6 [facility] Comment on above: Slight Lipemia, Resu lt may be falsely increased. Mean corpuscular hemoglobin (MCH) determinationOrdered By: Hesham Rod on 11-10-2024 MCH (RBC) [Entitic mass] 28.6 pg 27.0-32.0 [facility] Mean corpuscular hemoglobin concentration (MCHC) determinationOrdered By: Hesham Rod on 11-10-2024 MCHC (RBC) [Mass/Vol] 32.0 g/dL 32-36 [facility] Comment on above: Delta: 33.7 on 11/09-1907H&H CHNAGE Mean platelet volume determi nationOrdered By: Hesham Rod on 11-10-2024 Platelet mean volume (Bld) [Entitic vol] 9.2 fL 6.2-12.0 [facility] Monocyte percentageOrdered B y: Hesham Rod on 11-10-2024 Monocytes/100 WBC (Bld) 1.6 % 0-10 [facility] Neutrophil percentageOrdered By: Hesham Rod on 11-10-2024 Neutrophils/100 WBC (Bld) 88.2 % High 47-70 [facility] Nucleated red blood cell per centageOrdered By: Hesham Rod on 11-10-2024 Nucleated RBC/100 WBC (Bld) [Ratio] 0 % 0-5 [facility] Osmolality (U) [Osmolality]O rdered By: Hesham Rod on 11-10-2024 Urine Osmolality 201 mOsm/KG >50 [facility] Comment on above: Normal Urine Referen ce Ranges Random: 50 - 1200 mOsm/kg H20 depending on fluid intake Random: >850 mOsm/kg after 12 hour fluid restriction 24 hour: ~300 - 900 mOsm/kg H2O Osmolality, Serumon 11-10-19 25 OSMOLALITY,SER 283 mOsm/KG Normal 275-295 [facility] Comment on above: Performed By: #### L 100.0100 #### [facility] [address] [place], [place] [address], [id number] Osmolality, Urineon 11-10-19 25 OSMOLALITY,UR 201 mOsm/KG Normal [facility] Comment on above: Result Comment: Normal Urine Reference Ranges Random: 50 - 1200 mOsm/kg H20 depending on fluid intake Random: >850 mOsm/kg after 12 hour fluid restriction 24 hour: 300 - 900 mOsm/kg H2O Performed By: #### M 100.638 #### [facility] [address] [place], [place], [id number] Osmolality, serumOrdered By: Hesham Rod on 11-10-2024 Serum Osmolality 283 mOsm/KG 275-295 [facility] Phosphoruson 11-10-2024 Phosphate [Mass/Vol] 3.2 mg/dL Normal 2.5-4.9 [facility] Comment on above: Result Comment: Slig ht Lipemia, Result may be falsely increased. Performed By: #### L 500.2500, L100.0100 #### [facility] [address] [place], [address] Phosphorus measurementOrdere d By: Hesham Rod on 11-10-2024 Phosphorus Level 3.2 mg/dL 2.5-4.9 [facility] Comment on above: Slight Lipemia, Resu lt may be falsely increased. Platelet countOrdered By: Carlos Rod on 11-10-2024 Platelets (Bld) [#/Vol] 223 10*3/uL 150-450 [facility] Potassium measurementOrdered By: Hesham Rod on 11-10-2024 Potassium [Moles/Vol] 3.8 mmol/L 3.5-5.1 [facility] Comment on above: Slight Lipemia, Resu lt may be falsely increased. RBC Auto (Bld) [#/Vol]Ordere d By: Hesham Rod on 11-10-2024 RBC (Bld) [#/Vol] 4.23 10*6/uL 4.2-5.4 [facility] RESPIRATORY PANEL MOLECULARo n 11-10-2024 RP [...] Not Detected RSV B Not Detected Normal [facility] Comment on above: Performed By: #### M 100.638 #### [facility] [address] [place], [address] Respiratory pathogens DNA an d RNA panel LUIS M+probe (Resp)Ordered By: Hesham Rod on 11-10-2024 Respiratory Panel (PCR) [facility] Serum anion gap measurementO rdered By: Hesham Rod on 11-10-2024 Anion gap [Moles/Vol] 10 mmol/L 5-15 [facility] Serum globulin measurementOr dered By: Hesham Rod on 11-10-2024 Globulin (S) [Mass/Vol] 4.3 g/dL High 2.2-4.2 [facility] Serum or plasma alanine angulo otransferase (ALT) measurementOrdered By: Hesham Rod on 11-10-2024 ALT [Catalytic activity/Vol] 90 U/L High 13-56 [facility] Comment on above: Slight Lipemia, Resu lt may be falsely increased. Serum or plasma albumin lawrence urement (mass/volume)Ordered By: Hesham Rod on 11-10-2024 Albumin [Mass/Vol] 3.1 g/dL Low 3.2-5.0 [place] Serum or plasma alkaline jakob sphatase measurementOrdered By: Hesham Rod on 11-10-2024 ALP [Catalytic activity/Vol] 159 U/L High 45-117 [facility] Serum or plasma calcium lawrence urement (mass/volume)Ordered By: Hesham Rod on 11-10-2024 Calcium [Mass/Vol] 8.5 mg/dL 8.5-10.1 [place] Comment on above: Slight Lipemia, Resu lt may be falsely increased. Serum or plasma creatinine m easurement (mass/volume)Ordered By: Hesham Rod on 11-10-2024 Creatinine [Mass/Vol] 0.43 mg/dL Low 0.55-1.02 [facility] Comment on above: Slight Lipemia, Resu lt may be falsely increased.The validity of the calculated GFR & GFRAA in patients over 70 years has not been determined. Clinical correlation is essential. Serum or plasma urea nitroge n measurement (mass/volume)Ordered By: Hesham Rod on 11-10-2024 Urea nitrogen [Mass/Vol] 10 mg/dL 7-18 [facility] Comment on above: Slight Lipemia, Resu lt may be falsely increased. Sodium levelOrdered By: Bnenie Rod on 11-10-2024 Sodium [Moles/Vol] 136 mmol/L 136-145 [place] Strep pneumoniae Antig(UR,CS F)on 11-10-2024 STPAG URINE, CLEAN CATCH URINE INTERPRETATION Strep pneumoniae Antig(UR,CSF) Negative Urine Presumptive negative for pneumococcal pneumonia, suggesting no current or recent pneumococcal infection. Infection due to S pneumoniae cannot be ruled out since the antigen present in the sample may be below the detection limit of the test. Strep pneumo Test Negative URINE (See interpretation below) Normal [facility] Comment on above: Performed By: #### M 100.638 #### [facility] [address] [facility] [place], [address] Streptococcus pneumoniae ant igen assayOrdered By: Hesham Rod on 11-10-2024 Streptococcus pneumoniae Antigen (M [facility] TSH QnOrdered By: Hesham maynard on 11-10-2024 Thyroid Stimulating Hormone (TSH) 0.831 uIU/mL 0.358-3.740 [facility] Thyroid Stim Hormone (TSH)on 11-10-2024 TSH 0.831 uIU/mL Normal 0.358-3.740 [facility] Comment on above: Performed By: #### M 100.678 #### [facility] [address] [facility] [place], [place], [id number] Total proteinOrdered By: Wes Rod on 11-10-2024 Protein [Mass/Vol] 7.4 g/dL 6.4-8.2 [place] Comment on above: Slight Lipemia, Resu lt may be falsely increased. White blood cell (WBC) count Ordered By: Hesham Rod on 11-10-2024 WBC (Bld) [#/Vol] 9.9 10*3/uL 4.4-11.0 [place] 12 Lead EKGon 11-09-2024 12 Lead EKG [facility] Cardiovascular Services [address] [place] [address] 12 Lead EKG 11/09/242024 MR#: [id number] Acct: [id number] Name: BRENDA LE Rep #: [id number] : 1965 58 From: Gary Bose MD Attending Dr: Dr. Ana Lilia Lebron DO Status: A DM IN Ordering Dr: Francisco Thompson DO Date: 11/09/24 Location: [facility] Sex: F C Admitted: 11/09/24 Test Reason [...] ECG Confirmed by TAMMY SANDERS, GLORIA ([id number]), primer expeditor and drier CRISTAL OTT ([id number]) on 11/11/2024 6:40:18 AM Referred By: Confirmed By: GLORIA BOSE MD 11/11/24 0640 Date Gary oBse MD CC: ESEQUIEL Salmon; Dr. Francisco Thompson DO; Dr. Ana Lilia Lebron DO Signed Normal [facility] Basic Metabolic Profile (BMP )on 11-09-2024 BUN/CRE 25.0 RATIO High 10-20 [facility] Comment on above: Performed By: #### L 500.2500, L100.0100 #### [facility] Laboratory [address] [place], [address] CA,Total 9.2 mg/dL Normal 8.5-10.1 [facility] Comment on above: Performed By: #### L 500.2500, L100.0100 #### [facility] Laboratory [address] [place], [address] Chloride [Moles/Vol] 100 mmol/L Normal 98-107 [facility] Comment on above: Performed By: #### L 500.2500, L100.0100 #### [facility] Laboratory [address] [place], [address] CO2 [Moles/Vol] 21.0 mmol/L Normal 21.0-32.0 [facility] Comment on above: Performed By: #### L 500.2500, L100.0100 #### [facility] Laboratory [address] [place], [address] Creatinine [Mass/Vol] 0.56 mg/dL Normal 0.55-1.02 [facility] Comment on above: Result Comment: The validity of the calculated GFR GFRAA in patients over 70 years has not been determined. Clinical correlation is essential. Performed By: #### L 500.2500, L100.0100 #### [facility] Laboratory [address] [place], [address] ECRCL 105.16 ml/min Normal [facility] Comment on above: Performed By: #### L 500.2500, L100.0100 #### [facility] Laboratory [address] [place], [address] EST GFR - AA 142 mL/min Normal >60 [facility] Comment on above: Result Comment: Afri can Kenyan GFR Calc Performed By: #### L 500.2500, L100.0100 #### [facility] Laboratory [address] [place], [address] GAP 9 Normal 5-15 [facility] Comment on above: Performed By: #### L 500.2500, L100.0100 #### [facility] Laboratory [address] [place], [address] GFR/1.73 sq M.predicted among non-blacks MDRD (S/P/Bld) [Vol rate/Area] 117 mL/min/{1.73_m2} Normal >60 [facility] Comment on above: Result Comment: Non- GFR Calc Performed By: #### L 500.2500, L100.0100 #### [facility] Laboratory [address] [place], [address] Glucose [Mass/Vol] 164 mg/dL High 74-106 [place] Comment on above: Result Comment: Fast ing Glucose result greater than or equal to 126 mg/dL suggests DIABETES MELLITUS per A.D.A. criteria. Performed By: #### L 500.2500, L100.0100 #### [facility] Laboratory [address] [place], [address] Potassium [Moles/Vol] 3.8 mmol/L Normal 3.5-5.1 [facility] Comment on above: Performed By: #### L 500.2500, L100.0100 #### [facility] Laboratory [address] [place], [address] Sodium [Moles/Vol] 130 mmol/L Low 136-145 [place] Comment on above: Performed By: #### L 500.2500, L100.0100 #### [facility] Laboratory [address] [place], [address] Urea nitrogen [Mass/Vol] 14 mg/dL Normal 7-18 [facility] Comment on above: Performed By: #### L 500.2500, L100.0100 #### [facility] Laboratory [address] [place], [address] Bedside Glucoseon 11-09-2024 FINGERSTICK GLU 154 mg/dL High 74-106 [facility] Comment on above: Result Comment: DANIEL GEMENT OF PATIENT CARE PER NURSING PROTOCOL Performed By: #### L 500.4050, L501.4020, L501.2450, L100.0500 #### [facility] Laboratory [address] [place], [address] Bilirubin directOrdered By: Francisco Thompson on 11-09-2024 Bilirubin.direct [Mass/Vol] 0.28 mg/dL 0.00-0.30 [facility] Blood cultureOrdered By: Jovi Thompson on 11-09-2024 Bacteria identified Cx Nom (Bld) No growth in 5 days. [facility] CBC W/Diff, Automatedon 10-14 Absolute Lymph 1.89 X10 3/uL Normal 0.83-4.51 [facility] Comment on above: Performed By: #### L 500.2500, L100.0100 #### [facility] Laboratory [address] [place], [address] Absolute Neut 8.8 X10 3/uL High 2.0-7.7 [facility] Comment on above: Performed By: #### L 500.2500, L100.0100 #### [facility] Laboratory [address] [place], [address] Basophils/100 WBC (Bld) 0.5 % Normal 0-1 [facility] Comment on above: Performed By: #### L 500.2500, L100.0100 #### [facility] Laboratory [address] [place], [address] Eosinophils/100 WBC (Bld) 0.1 % Normal 0-5 [facility] Comment on above: Performed By: #### L 500.2500, L100.0100 #### [facility] Laboratory [address] [place], [address] Erythrocyte distribution width (RBC) [Ratio] 14.2 % Normal 11.6-14.6 [facility] Comment on above: Performed By: #### L 500.2500, L100.0100 #### [facility] Laboratory [address] [place], [address] Hematocrit (Bld) [Volume fraction] 39.8 % Normal 37-47 [facility] Comment on above: Performed By: #### L 500.2500, L100.0100 #### [facility] Laboratory [address] [place], [address] Hemoglobin (Bld) [Mass/Vol] 13.4 g/dL Normal 12.0-15.0 [facility] Comment on above: Performed By: #### L 500.2500, L100.0100 #### [facility] Laboratory [address] [place], [address] IG% 0.400 Normal 0.0-0.9 [facility] Comment on above: Result Comment: IG% - Immature Granulocytes (promyelocytes, myelocytes and metamyelocytes) > 1% indicates that a LEFT SHIFT is Present. Performed By: #### L 500.2500, L100.0100 #### [facility] Laboratory [address] [place], [address] Lymphocytes/100 WBC (Bld) 15.5 % Low 19-41 [facility] Comment on above: Performed By: #### L 500.2500, L100.0100 #### [facility] Laboratory [address] [place], [address] MCH (RBC) [Entitic mass] 29.1 pg Normal 27.0-32.0 [facility] Comment on above: Performed By: #### L 500.2500, L100.0100 #### [facility] Laboratory [address] [place], [address] MCHC (RBC) [Mass/Vol] 33.7 g/dL Normal 32-36 [facility] Comment on above: Performed By: #### L 500.2500, L100.0100 #### [facility] Laboratory [address] [place], [address] MCV (RBC) [Entitic vol] 86.3 fL Normal 81-99 [facility] Comment on above: Performed By: #### L 500.2500, L100.0100 #### [facility] Laboratory [address] [place], [address] Monocytes/100 WBC (Bld) 12.0 % High 0-10 [facility] Comment on above: Performed By: #### L 500.2500, L100.0100 #### [facility] Laboratory [address] [place], [address] Neutrophils/100 WBC (Bld) 71.5 % High 47-70 [facility] Comment on above: Performed By: #### L 500.2500, L100.0100 #### [facility] Laboratory [address] [place], [address] Nucleated RBC (Bld) [#/Vol] 0 10*3/uL Normal 0-5 [facility] Comment on above: Performed By: #### L 500.2500, L100.0100 #### [facility] Laboratory [address] [place], [address] Platelet mean volume (Bld) [Entitic vol] 9.3 fL Normal 6.2-12.0 [facility] Comment on above: Performed By: #### L 500.2500, L100.0100 #### [facility] Laboratory [address] [place], [address] Platelets (Bld) [#/Vol] 239 10*3/uL Normal 150-450 [facility] Comment on above: Performed By: #### L 500.2500, L100.0100 #### [facility] Laboratory [address] [place], [address] RBC (Bld) [#/Vol] 4.61 10*6/uL Normal 4.2-5.4 [facility] Comment on above: Performed By: #### L 500.2500, L100.0100 #### [facility] Laboratory [address] [place], [address] RDW SD 44.9 fl High 35.1-43.9 [facility] Comment on above: Performed By: #### L 500.2500, L100.0100 #### [facility] Laboratory [address] [place], [address] WBC (Bld) [#/Vol] 12.2 10*3/uL High 4.4-11.0 [facility] Comment on above: Performed By: #### L 500.2500, L100.0100 #### [facility] Laboratory [address] [place], [address] CNOVon 11-09-2024 CNOV Normal [facility] Chest 1 View (Portable)on Chest 1 View (Portable) [facility] Imaging Services [address] [place] [address] Chest 1 View (Portable) MR#: [id number] Acct: [id number] Name: BRENDA LE Rep #: [id number] : 1965 F 58 From: Adriano Mejia DO PCP: ESEQUIEL Headley Status: PRE ER Study: Chest 1 View (Portable) Date of Exam: 11/09/24 Exam# [id number] Ordering Dr: Provider,Steve P. PROCEDURE: CHEST 1 VIEW (PORTABLE) REASON [...] process. Follow-up to resolution recommended. Reading Location: [facility] CC: ESEQUIEL Salmon; ED PHYSICIAN PROVIDER Sound Art Instructor: Signed Normal [facility] Emergency Department Summary on 11-09-2024 Emergency Department Summary [facility] Medical Records Department [address] [place] [address] Emergency Department Summary 11/09/24 MR#: [id number] Acct: [id number] Name: BRENDA LE Rep #: [id number] : 1965 58 From: Francisco Thompson DO PCP: Shelia Salmon, HARMONICA MAKER Status:REG ER Location: ED HPI History of Present Illness Chief Complaint: Shortness of Breath Informant: patient and mental health staff Narrative Narrative: 58-year-old female from [facility] long term presenting to the emergency room with fever and cough. There is reported that around the of this month she had a viral URI. 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 They recommended that she come to emergency when it was discovered that the odd jobs day worker stated they cannot give her any medicine [...] She does have a history of COPD. 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 Normal [facility] H AND P Exam - Hospitaliston 11-09-2024 H&P Exam - Hospitalist [facility] Medical Records Department [address] [place] [address] H P Exam - Hospitalist 11/09/24 2321 MR#: [id number] Acct: [id number] Name: BRENDA LE Rep #: [id number] : 1965 58 From: Hesham Amato DO PCP: Shelia Salmon, HARMONICA MAKER Status:ADM IN Location: [facility] [id number] HPI - General General Date of Admission: [...] local psychiatric long term who presents to [facility] ER after staff noted patient complaining of shortness of breath and wheezing. Ms. Le is not a fully-reliable historian at this time so information was primarily gathered from chart, medical staff and computer. According to the records the patient's respiratory director informed the ER physician that she first became ill around November 02, 2024 with a viral URI. She was subsequently taken to urgent care with patient suspected to have Pneumonia complicated by AE COPD with patient recommended to start antibiotic and steroid therapy but respiratory director unable to administer medications without a formal MAR to sign off on - which would not be available until tomorrow morning so she was brought in to the ER for further evaluation and treatment. Her respiratory director went on to report that she looked [...] is expected to extend beyond 2 midnights. [facility] Medical History Schizophrenia LIDA on [...] 325 mg tablet,delayed 325 mg PO DAILY@1600 [facility] 07/22/18 07/30/21 History release omeprazole 20 mg [...] Unknown Rx (more content not included)... Normal [facility] INFLUENZA A&B MOLECULAR (POC )on 11-09-2024 Flu A (POCT) Negative Negative [facility] Flu B (POCT) Negative Negative [facility] Procedural Control Valid [facility] Location:[facility], [address], [place], [address] [facility] Influenza virus A and B and SARS-CoV-2 (COVID-19) and Respiratory syncytial virus RNAOrdered By: Francisco Thompson on 11-09-2024 SARS-CoV-2 (COVID-19) RNA LUIS M+probe Ql (Unsp spec) [facility] International normalized rat io (INR) calculationOrdered By: Francisco Thompson on 11-09-2024 INR Coag (Bld) [Relative time] 1.1 {INR} [facility] Lactic Acidon 11-09-2024 Lactate [Moles/Vol] 1.3 mmol/L Normal 0.4-1.9 [facility] Comment on above: Order Comment: Y Performed By: #### L 100.0100 #### [facility] Laboratory [address] [facility] [facility] [id number] Lactic acid measurementOrder ed By: Francisco Thompson on 11-09-2024 Lactate [Moles/Vol] 1.3 mmol/L 0.4-2.0 [facility] Liver Profileon 11-09-2024 Albumin [Mass/Vol] 3.5 g/dL Normal 3.2-5.0 [place] Comment on above: Performed By: #### M 100.638 #### [facility] Laboratory [address] [facility] [id number] (493 ALK P 188 U/L High 45-117 [facility] Comment on above: Performed By: #### M 100.638 #### [facility] Laboratory [address] [place], [address] ALT [Catalytic activity/Vol] 103 U/L High 13-56 [facility] Comment on above: Performed By: #### M 100.638 #### [facility] Laboratory [address] [place], [address] AST [Catalytic activity/Vol] 83 U/L High 15-37 [facility] Comment on above: Performed By: #### M 100.638 #### [facility] Laboratory [address] [place], [address] Bilirubin [Mass/Vol] 0.80 mg/dL Normal 0.20-1.00 [facility] Comment on above: Result Comment: For patients on eltrombopag therapy, use of [employer] [place] TBIL is not recommended. Performed By: #### M 100.638 #### [facility] Laboratory [address] [place], [address] Bilirubin.direct [Mass/Vol] 0.28 mg/dL Normal 0.00-0.30 [facility] Comment on above: Performed By: #### M 100.638 #### [facility] Laboratory [address] [place], [address] Globulin (S) [Mass/Vol] 4.4 g/dL High 2.2-4.2 [facility] Comment on above: Performed By: #### M 100.638 #### [facility] Laboratory [address] [place], [address] T PROT 7.9 g/dL Normal 6.4-8.2 [facility] Comment on above: Performed By: #### M 100.638 #### [facility] Laboratory [address] [place], [address] M100.678on 11-09-2024 M100.678 SARS-CoV-2 (COVID 19 ) Negative INFLUENZA A Negative INFLUENZA B Negative RSV PCR Negative Normal [facility] Comment on above: Performed By: #### L 500.4050, L501.4020, L501.2450, L100.0500 #### [facility] Laboratory [address] [place], [address] Prothrombin Time w/INRon INR Coag (PPP) [Relative time] 1.1 {INR} Normal [facility] Comment on above: Performed By: #### L 100.0100 #### [facility] Laboratory [address] [place], [place], [address] PT Coag (PPP) [Time] 13.9 s Normal 11.7-14.9 [facility] Comment on above: Performed By: #### L 100.0100 #### [facility] Laboratory [address] [place], [place], [id number] Prothrombin timeOrdered By: Francisco Thompson on 11-09-2024 PT Coag (PPP) [Time] 13.9 s 11.7-14.9 [facility] XR CHEST 2V FRONTAL/LATon XR CHEST 2V FRONTAL/LAT Normal C [facility] XR Chest PA and Lateralon IMPRESSION: Patchy density in the lingula raises the possibility of pneumonia. Sound Art Instructor: MILDRED Transcribe Date/Time: Nov 09 2024 5:44P Dictated by : HESHAM CEDILLO MD This examination was interpreted and the report reviewed and electronically signed by: HESHAM CEDILLO MD on Nov 09 2024 5:46PM [facility] DIVISION OF RADIOLOGY * * *Final [...] the thoracic spine. DIVISION OF RADIOLOGY Provider, [facility] Minnie [facility] - 11/09/2024 * * *Final Report* * [...] the lingula raises the possibility of pneumonia. Sound Art Instructor: PSCStefania Transcribe Date/Time: Nov 09 2024 5:44P Dictated by : HESHAM CEDILLO MD This examination was interpreted and the report reviewed and electronically signed by: HESHAM CEDILLO MD on Nov 09 2024 5:46PM EST [facility] Radiology Study observation (narrative) Pola etienne [facility] XR Chest PA and LateralOrder ed By: Ccf Provider on 11-09-2024 [facility] CNPNon 11-05-2024 CNPN Normal [facility] Aldolase SerPl-cCncon 2024 Aldolase [Catalytic activity/Vol] 5.2 mU/mL Normal 1.5-8.1 [facility] Comment on above: Order Comment: Rand gonzalez Type: BLOOD SPECIMENOrdering Facility: [facility] Address: [address] [place] [address] Result Comment: This test was developed, and its performance characteristics determined by the [facility] Department of Pathology and Laboratory Medicine. It has not been cleared or approved by the FDA. The [facility] Department of Pathology and Laboratory Medicine is regulated under CLIA as qualified to perform high-complexity testing. This test is used for clinical purposes. It should not be regarded as investigational or for research. Performed By: #### 1 761-6 ####[facility] LABCLIA [id number] [place] [address] [place] CBC W Auto Differential pane l (Bld)on 11-02-2024 Basophils (Bld) [#/Vol] 0.06 10*3/uL Normal <0.11 [facility] Comment on above: Order Comment: Speci men Type: BLOOD SPECIMENOrdering Facility: [facility] Address: [address] [place] [address] Performed By: #### 5 7021-8 ####[facility]CLIA [id number] [place] [address] [place] Basophils/100 WBC (Bld) 0.5 % Normal [facility] Comment on above: Order Comment: Speci men Type: BLOOD SPECIMENOrdering Facility: [facility] Address: [address] [place] [address] Performed By: #### 5 7021-8 ####[facility]CLIA [id number] [place] [address] [place] Differential cell count method Nom (Bld) Auto Normal [facility] Comment on above: Order Comment: Speci men Type: BLOOD SPECIMENOrdering Facility: [facility] Address: [address] [place] [address] Performed By: #### 5 7021-8 ####[facility] LABCLIA [id number] [place] [address] [place] Eosinophils (Bld) [#/Vol] 10*3/uL Normal <0.46 [facility] Comment on above: Order Comment: Speci men Type: BLOOD SPECIMENOrdering Facility: [facility] Address: [address] [place] [address] Performed By: #### 5 7021-8 ####[facility]CLIA [id number] [place] [address] [place] Eosinophils/100 WBC (Bld) 0.1 % Normal [facility] Comment on above: Order Comment: Speci men Type: BLOOD SPECIMENOrdering Facility: [facility] Address: [address] [place] [address] Performed By: #### 5 7021-8 ####[facility]CLIA [id number] [place] [address] [place] Erythrocyte distribution width (RBC) [Ratio] 14.3 % Normal 11.5-15.0 [facility] Comment on above: Order Comment: Speci men Type: BLOOD SPECIMENOrdering Facility: [facility] Address: [address] [place] [address] Performed By: #### 5 7021-8 ####[facility] LABCLIA [id number] [place] [address] [place] Hematocrit (Bld) [Volume fraction] 44.1 % Normal 36.0-46.0 [facility] Comment on above: Order Comment: Speci men Type: BLOOD SPECIMENOrdering Facility: [facility] Address: [address] [place] [address] Performed By: #### 5 7021-8 ####[facility] LABIA [id number] [place] [address] [place] Hemoglobin (Bld) [Mass/Vol] 13.8 g/dL Normal 11.5-15.5 [facility] Comment on above: Order Comment: Speci men Type: BLOOD SPECIMENOrdering Facility: [facility] Address: [address] [place] [address] Performed By: #### 5 7021-8 ####[facility] LABIA [id number] [place] [address] [place] Immature granulocytes (Bld) [#/Vol] 0.05 10*3/uL Normal <0.10 [facility] Comment on above: Order Comment: Speci men Type: BLOOD SPECIMENOrdering Facility: [facility] Address: [address] [place] [address] Performed By: #### 5 7021-8 ####[facility] LABCLIA [id number] [place] [address] [place] Immature granulocytes/100 WBC (Bld) 0.5 % Normal [facility] Comment on above: Order Comment: Speci men Type: BLOOD SPECIMENOrdering Facility: [facility] Address: [address] [place] [address] Performed By: #### 5 7021-8 ####[facility] LABCLIA [id number] [place] [address] [place] Lymphocytes (Bld) [#/Vol] 2.33 10*3/uL Normal 1.00-4.00 [facility] Comment on above: Order Comment: Speci men Type: BLOOD SPECIMENOrdering Facility: [facility] Address: [address] [place] [address] Performed By: #### 5 7021-8 ####[facility] LABCLIA [id number] [place] [address] [place] Lymphocytes/100 WBC (Bld) 21.0 % Normal [facility] Comment on above: Order Comment: Speci men Type: BLOOD SPECIMENOrdering Facility: [facility] Address: [address] [place] [address] Performed By: #### 5 7021-8 ####[facility]CLIA [id number] [place] [address] [place] MCH (RBC) [Entitic mass] 28.4 pg Normal 26.0-34.0 [facility] Comment on above: Order Comment: Speci men Type: BLOOD SPECIMENOrdering Facility: [facility] Address: [address] [place] [address] Performed By: #### 5 7021-8 ####[facility] LABCLIA [id number] [place] [address] [place] MCHC (RBC) [Mass/Vol] 31.3 g/dL Normal 30.5-36.0 [facility] Comment on above: Order Comment: Speci men Type: BLOOD SPECIMENOrdering Facility: [facility] Address: [address] [place] [address] Performed By: #### 5 7021-8 ####[facility] LABCLIA [id number] [place] [address] [place] MCV (RBC) [Entitic vol] 90.7 fL Normal 80.0-100.0 C [facility] Comment on above: Order Comment: Speci men Type: BLOOD SPECIMENOrdering Facility: [facility] Address: [address] [place] [address] Performed By: #### 5 7021-8 ####[facility] LABCLIA [id number] [place] [address] [place] Monocytes (Bld) [#/Vol] 0.76 10*3/uL Normal <0.87 [facility] Comment on above: Order Comment: Speci men Type: BLOOD SPECIMENOrdering Facility: [facility] Address: [address] [place] [address] Performed By: #### 5 7021-8 ####[facility] LABCLIA [id number] [place] [address] [place] Monocytes/100 WBC (Bld) 6.9 % Normal C [facility] Comment on above: Order Comment: Speci men Type: BLOOD SPECIMENOrdering Facility: [facility] Address: [address] [place] [address] Performed By: #### 5 7021-8 ####[facility] LABCLIA [id number] [place] [address] [place] Neutrophils (Bld) [#/Vol] 7.86 10*3/uL High 1.45-7.50 [facility] Comment on above: Order Comment: Speci men Type: BLOOD SPECIMENOrdering Facility: [facility] Address: [address] [place] [address] Performed By: #### 5 7021-8 ####[facility] LABCLIA [id number] [place] [address] [place] Neutrophils/100 WBC (Bld) 71.0 % Normal [facility] Comment on above: Order Comment: Speci men Type: BLOOD SPECIMENOrdering Facility: [facility] Address: [address] [place] [address] Performed By: #### 5 7021-8 ####[facility] LABCLIA [id number] [place] [address] [place] Nucleated RBC (Bld) [#/Vol] 10*3/uL Normal <0.01 [facility] Comment on above: Order Comment: Speci men Type: BLOOD SPECIMENOrdering Facility: [facility] Address: [address] [place] [address] Performed By: #### 5 7021-8 ####[facility] LABIA [id number] [place] [address] [place] Nucleated RBC/100 WBC (Bld) [Ratio] 0.0 /100 WBC Normal [facility] Comment on above: Order Comment: Speci men Type: BLOOD SPECIMENOrdering Facility: [facility] Address: [address] [place] [address] Performed By: #### 5 7021-8 ####[facility] LABCLIA [id number] [place] [address] [place] Platelet mean volume (Bld) [Entitic vol] 12.2 fL Normal 9.0-12.7 [facility] Comment on above: Order Comment: Speci men Type: BLOOD SPECIMENOrdering Facility: [facility] Address: [address] [place] [address] Performed By: #### 5 7021-8 ####[facility] LABIA [id number] [place] [address] [place] Platelets (Bld) [#/Vol] 129 10*3/uL Low 150-400 [facility] Comment on above: Order Comment: Speci men Type: BLOOD SPECIMENOrdering Facility: [facility] Address: [address] [place] [address] Performed By: #### 5 7021-8 ####[facility] LABIA [id number] [address] [address] [place] RBC (Bld) [#/Vol] 4.86 10*6/uL Normal 3.90-5.20 [facility] Comment on above: Order Comment: Speci men Type: BLOOD SPECIMENOrdering Facility: [facility] Address: [address] [place] [address] Performed By: #### 5 7021-8 ####[facility] LABIA [id number] [place] [address] [place] WBC (Bld) [#/Vol] 11.07 10*3/uL High 3.70-11.00 [facility] Comment on above: Order Comment: Speci men Type: BLOOD SPECIMENOrdering Facility: [facility] Address: [address] [place] [address] Performed By: #### 5 7021-8 ####[facility] [id number] [place] [address] [place] CK SerPl-cCncon 11-02-2024 CK [Catalytic activity/Vol] 51 U/L Normal 42-196 [facility] Comment on above: Order Comment: Speci men Type: BLOOD SPECIMENOrdering Facility: [facility] Address: [address] [place] [address] Performed By: #### 2 157-6, 45811-7, LIPNF ####[facility] [id number] [place] [address] [place] CNOVon 11-02-2024 CNOV Normal [facility] Comprehensive metabolic 2000 panelon 11-02-2024 Albumin [Mass/Vol] 4.4 g/dL Normal 3.9-4.9 [facility] Comment on above: Order Comment: Speci men Type: BLOOD SPECIMENOrdering Facility: [facility] Address: [address] [place] [address] Performed By: #### 2 157-6, 55625-2, LIPNF ####[facility] LABCLIA [id number] [place] [address] [place] ALP [Catalytic activity/Vol] 133 U/L High 34-123 [facility] Comment on above: Order Comment: Speci men Type: BLOOD SPECIMENOrdering Facility: [facility] Address: [address] [place] [address] Performed By: #### 2 157-6, 68431-9, LIPNF ####[facility] LABCLIA [id number] [place] [address] [place] ALT [Catalytic activity/Vol] 43 U/L High 7-38 [facility] Comment on above: Order Comment: Speci men Type: BLOOD SPECIMENOrdering Facility: [facility] Address: [address] [place] [address] Performed By: #### 2 157-6, 43406-5, LIPNF ####[facility] LABCLIA [id number] [place] [address] [place] Anion gap [Moles/Vol] 13 mmol/L Normal 8-15 [facility] Comment on above: Order Comment: Speci men Type: BLOOD SPECIMENOrdering Facility: [facility] Address: [address] [place] [address] Performed By: #### 2 157-6, 27786-3, LIPNF ####[facility] LABCLIA [id number] [place] [address] [place] AST [Catalytic activity/Vol] 23 U/L Normal 13-35 [facility] Comment on above: Order Comment: Speci men Type: BLOOD SPECIMENOrdering Facility: [facility] Address: [address] [place] [address] Performed By: #### 2 157-6, 23312-7, LIPNF ####[facility] LABCLIA [id number] [address] [address] [place] Bilirubin [Mass/Vol] 0.2 mg/dL Normal 0.2-1.3 [facility] Comment on above: Order Comment: Speci men Type: BLOOD SPECIMENOrdering Facility: [facility] Address: [address] [place] [address] Performed By: #### 2 157-6, 60616-1, LIPNF ####[facility] LABCLIA [id number] [place] [address] [place] Calcium [Mass/Vol] 9.2 mg/dL Normal 8.5-10.2 [facility] Comment on above: Order Comment: Speci men Type: BLOOD SPECIMENOrdering Facility: [facility] Address: [address] [place] [address] Performed By: #### 2 157-6, 37674-4, LIPNF ####[facility] LABCLIA [id number] [place] [address] [place] Chloride [Moles/Vol] 93 mmol/L Low 98-107 [facility] Comment on above: Order Comment: Speci men Type: BLOOD SPECIMENOrdering Facility: [facility] Address: [address] [place] [address] Performed By: #### 2 157-6, 92036-5, LIPNF ####[facility] LABCLIA [id number] [place] [address] [place] CO2 [Moles/Vol] 25 mmol/L Normal 22-30 [facility] Comment on above: Order Comment: Speci men Type: BLOOD SPECIMENOrdering Facility: [facility] Address: [address] [place] [address] Performed By: #### 2 157-6, 41065-7, LIPNF ####[facility] LABCLIA [id number] [place] [id number] [place] Creatinine [Mass/Vol] 0.55 mg/dL Low 0.58-0.96 [facility] Comment on above: Order Comment: Rand gonzalez Type: BLOOD SPECIMENOrdering Facility: [facility] Address: [address] [place] [address] Performed By: #### 2 157-6, 50466-6, LIPNF ####[facility] LABCLIA [id number] [place] [address] [place] Creatinine and Glomerular filtration rate.predicted panel (S/P/Bld) 105 mL/min/1.73m??? Normal >=60 [facility] Comment on above: Order Comment: Rand gonzalez Type: BLOOD SPECIMENOrdering Facility: [facility] Address: [address] [place] [address] Result Comment: Gia mated Glomerular Filtration Rate [...] actual GFR. Performed By: #### 2 157-6, 86903-0, LIPNF ####[facility] LABCLIA [id number] [place] [id number] [place] Glucose [Mass/Vol] 138 mg/dL High 74-99 [facility] Comment on above: Order Comment: Rand gonzalez Type: BLOOD SPECIMENOrdering Facility: [facility] Address: [address] [place] [address] Result Comment: The [place] Diabetes Association (ADA) provides guidance for cutoff [...] Standards of Medical Care in Diabetes 2016, [place] [employer] Association. Diabetes Care. 2016.39(Suppl 1). Performed By: #### 2 157-6, 36286-7, LIPNF ####[facility] LABCLIA [id number] [address] [address] [place] Potassium [Moles/Vol] 4.3 mmol/L Normal 3.7-5.1 [facility] Comment on above: Order Comment: Speci men Type: BLOOD SPECIMENOrdering Facility: [facility] Address: [address] [place] [address] Performed By: #### 2 157-6, 81598-3, LIPNF ####[facility] LABIA [id number] [place] [address] [place] Protein [Mass/Vol] 7.4 g/dL Normal 6.3-8.0 [facility] Comment on above: Order Comment: Speci men Type: BLOOD SPECIMENOrdering Facility: [facility] Address: [address] [place] [address] Performed By: #### 2 157-6, 51472-5, LIPNF ####[facility] LABIA [id number] [place] [id number] [place] Sodium [Moles/Vol] 131 mmol/L Low 136-144 [facility] Comment on above: Order Comment: Speci men Type: BLOOD SPECIMENOrdering Facility: [facility] Address: [address] [place] [address] Performed By: #### 2 157-6, 42974-9, LIPNF ####[facility] LABIA [id number] [address] [address] [place] Urea nitrogen [Mass/Vol] 11 mg/dL Normal 7-21 [facility] Comment on above: Order Comment: Speci men Type: BLOOD SPECIMENOrdering Facility: [facility] Address: [address] [place] [address] Performed By: #### 2 157-6, 29564-6, LIPNF ####[facility] LABIA [id number] [address] [place] HbA1c (Bld)on 11-02-2024 Average glucose Estimated from glycated hemoglobin (Bld) [Mass/Vol] 146 mg/dL Normal [facility] Comment on above: Order Comment: Rand [facility] Type: BLOOD SPECIMENOrdering Facility: [facility] Address: [address] [place] [address] Result Comment: eAG: (Estimated average glucose) is a calculated value from HgbA1c and is plastic products sales representative of the average blood glucose level in the last 2-3 month period. Performed By: #### 5 5454-3 ####[facility] [id number] [address] STATES OF [facility] HbA1c (Bld) [Mass fraction] 6.7 % High 4.3-5.6 [facility] Comment on above: Order Comment: Rand [facility] Type: BLOOD SPECIMENOrdering Facility: [facility] Address: [address] [place] [address] Result Comment: [place] Diabetes Association guidelines indicate that patients with HgbA1c in the range 5.7-6.4% are at increased risk for development of diabetes, and intervention by lifestyle modification may be beneficial. HgbA1c greater or equal to 6.5% is considered diagnostic of diabetes. Performed By: #### 5 5454-3 ####[facility] LABIA [id number] [address] [place] LIPID PANEL, NONFASTINGon Cholesterol [Mass/Vol] 204 mg/dL High <200 [facility] Comment on above: Order Comment: Rand gonzalez Type: BLOOD SPECIMENOrdering Facility: [facility] Address: [address] [place] [address] Result Comment: <200 mg/dL, Desirable 200-239 mg/dL, Borderline high>239 mg/dL, High Performed By: #### 2 157-6, 76584-2, LIPNF ####[facility] LABCLIA [id number] [address] [place] HDL CHOLESTEROL, NF 39 mg/dL Low >39 [facility] Comment on above: Order Comment: Speci men Type: BLOOD SPECIMENOrdering Facility: [facility] Address: [address] [place] [address] Result Comment: 40-5 9 mg/dL, Acceptable>59 mg/dL, High: Negative risk factor for coronary heart disease<40 mg/dL, Low: Positive risk factor for coronary heart disease Performed By: #### 2 157-6, 03838-0, LIPNF ####[facility] LABCLIA [id number] [address] OF [facility] LDL CHOLESTEROL, NF 96 mg/dL Normal <100 [facility] Comment on above: Order Comment: Speci men Type: BLOOD SPECIMENOrdering Facility: [facility] Address: [address] [place] [address] Result Comment: <100 mg/dL, Optimal 100-129 mg/dL, Near optimal/above optimal 130-159 mg/dL, Borderline high 160-189 mg/dL, High>189 mg/dL, Very highSecondary prevention optimal LDL Cholesterol levels are recommended to be < 70 mg/dL Performed By: #### 2 157-6, 95891-3, LIPNF ####[facility] LABCLIA [id number] [address] OF [facility] LDL/HDL RATIO, NF 2.46 mg/dL Normal <2.54 [facility] Comment on above: Order Comment: Speci [facility] Type: BLOOD SPECIMENOrdering Facility: [facility] Address: [address] [place] [address] Result Comment: Refe josiahce:1. National Cholesterol Education Program ATP III Guideline At-A-Glance Quick Desk Reference: National Heart, Lung, and Blood [place]. National Institutes of Health. 2001: NIH Publication No. 01-3305.2. An International Atherosclerosis Society position paper: global recommendations for the management of dyslipidemia: executive summary, Atherosclerosis. 2014: 232(2):410-413. Performed By: #### 2 157-6, 46774-5, LIPNF ####[facility] LABCLIA [id number] [place] [address] [place] NON HDL CHOL, NF 165 mg/dL High <130 [facility] Comment on above: Order Comment: Speci men Type: BLOOD SPECIMENOrdering Facility: [facility] Address: [address] [place] [address] Result Comment: <130 mg/dL, Optimal 130-159 mg/dL, Near optimal/above optimal 160-189 mg/dL, Borderline high 190-219 mg/dL, High>219 mg/dL, Very highSecondary prevention optimal non HDL Cholesterol levels are recommended to be <100 mg/dL Performed By: #### 2 157-6, 31711-4, LIPNF ####[facility] LABCLIA [id number] [place] [address] [place] T CHOL/HDL RATIO NF 5.23 mg/dL High <5.10 [facility] Comment on above: Order Comment: Speci men Type: BLOOD SPECIMENOrdering Facility: [facility] Address: [address] [place] [address] Performed By: #### 2 157-6, 49300-9, LIPNF ####[facility] LABCLIA [id number] [place] [address] [place] TRIGLYCERIDES, NF 344 mg/dL High <150 [facility] Comment on above: Order Comment: Speci men Type: BLOOD SPECIMENOrdering Facility: [facility] Address: [address] [place] [address] Result Comment: <150 mg/dL, Normal 150-199 mg/dL, Borderline high 200-499 mg/dL, High>499 mg/dL, Very high Performed By: #### 2 157-6, 96418-7, LIPNF ####[facility] LABCLIA [id number] [place] [address] [place] VLDL CHOLESTEROL, NF 69 mg/dL High <30 [facility] Comment on above: Order Comment: Speci men Type: BLOOD SPECIMENOrdering Facility: [facility] Address: [address] [place] [address] Performed By: #### 2 157-6, 49282-6, LIPNF ####[facility] LABCLIA [id number] [place] [address] [place] XR LUMBAR 3V AP/LAT/L5-S1on 11-02-2024 XR LUMBAR 3V AP/LAT/L5-S1 Normal [facility] XR Lumbar spine 3 Viewson IMPRESSION: MILD DEGENERATIVE CHANGE Sound Art Instructor: MILDRED Transcribe Date/Time: Nov 02 2024 4:48P Dictated by : EUSEBIA MARIN MD This examination was interpreted and the report reviewed and electronically signed by: EUSEBIA MARIN MD on Nov 02 2024 4:52PM [facility] DIVISION OF RADIOLOGY * * *Final [...] focal bony abnormality DIVISION OF RADIOLOGY Provider, Erika Minnie Ann - 11/02/2024 * * *Final Report* * [...] bony abnormality IMPRESSION IMPRESSION: MILD DEGENERATIVE CHANGE Sound Art Instructor: PSCB Transcribe Date/Time: Nov 02 2024 4:48P Dictated by : EUSEBIA MARIN MD This examination was interpreted and the report reviewed and electronically signed by: EUSEBIA MARIN MD on Nov 02 2024 4:52PM EST [facility] Radiology Study observation (narrative) [facility] XR Lumbar spine 3 ViewsOrder ed By: Ccf Provider on 11-02-2024 [facility] 12 Lead EKGon 10-14-2024 12 Lead EKG [facility] Cardiovascular Services [address] [place] [address] 12 Lead EKG 10/14/24 1615 MR#: [id number] Acct: [id number] Name: BRENDA LE Rep #: [id number] : 1965 58 From: Yovany Dimas MD [...] ECG Confirmed by YOVANY DIMAS MD ([id number]), primer expeditor and drier ROSY CLINE ([id number]) on 10/15/2024 8:26:49 AM Referred By: Tae Holland Confirmed By: YOVANY DIMAS MD 10/15/24 0826 Date Yovany Dimas MD CC: ESEQUIEL Salmon; Dr. Tae Holland, DO Signed Normal [facility] Absolute neutrophil countOrd ered By: Lorraine Springer on 10-14-2024 Neutrophils (Bld) [#/Vol] 5.8 10*3/uL 2.0-7.7 [facility] Albumin to globulin ratioOrd ered By: Tae Holland on 10-14-2024 Albumin/Globulin [Mass ratio] 0.9 {ratio} 0.9-2.4 [facility] Basophil percentageOrdered B y: Lorraine Springer on 10-14-2024 Basophils/100 WBC (Bld) 0.5 % 0-1 [facility] Bilirubin, totalOrdered By: Tae Holland on 10-14-2024 Bilirubin [Mass/Vol] 0.50 mg/dL 0.20-1.00 [facility] Comment on above: For patients on eltr ombopag therapy, use of Dimension [place] TBIL is not recommended. Blood urea nitrogen (BUN)/cr eatinine ratioOrdered By: Tae Holland on 10-14-2024 Urea nitrogen/Creatinine [Mass ratio] 31.2 mg/mg High 10-20 [facility] CBC W/Diff, Automatedon Absolute Lymph 1.45 X10 3/uL Normal 0.83-4.51 [facility] Comment on above: Performed By: #### M 100.678 #### [facility] [address] [place], [address] Absolute Neut 5.8 X10 3/uL Normal 2.0-7.7 [facility] Comment on above: Performed By: #### M 100.678 #### [facility] [address] [place] [place], [address] Basophils/100 WBC (Bld) 0.5 % Normal 0-1 [facility] Comment on above: Performed By: #### M 100.678 #### [facility] [address] [place], [address] Eosinophils/100 WBC (Bld) 0.4 % Normal 0-5 [facility] Comment on above: Performed By: #### M 100.678 #### [facility] [address] [place], [address] Erythrocyte distribution width (RBC) [Ratio] 14.0 % Normal 11.6-14.6 [facility] Comment on above: Performed By: #### M 100.678 #### [facility] [address] [place], [address] Hematocrit (Bld) [Volume fraction] 44.2 % Normal 37-47 [facility] Comment on above: Performed By: #### M 100.678 #### [facility] [address] [place], [address] Hemoglobin (Bld) [Mass/Vol] 14.4 g/dL Normal 12.0-15.0 [facility] Comment on above: Performed By: #### M 100.678 #### [facility] [address] [place], [address] IG% 0.600 Normal 0.0-0.9 [facility] Comment on above: Result Comment: IG% - Immature Granulocytes (promyelocytes, myelocytes and metamyelocytes) > 1% indicates that a LEFT SHIFT is Present. Performed By: #### M 100.678 #### [facility] [address] [place], [address] Lymphocytes/100 WBC (Bld) 17.9 % Low 19-41 [facility] Comment on above: Performed By: #### M 100.678 #### [facility] [address] [place], [address] MCH (RBC) [Entitic mass] 29.3 pg Normal 27.0-32.0 [facility] Comment on above: Performed By: #### M 100.678 #### [facility] [address] [place], [address] MCHC (RBC) [Mass/Vol] 32.6 g/dL Normal 32-36 [facility] Comment on above: Performed By: #### M 100.678 #### [facility] [address] [place], [address] MCV (RBC) [Entitic vol] 90.0 fL Normal 81-99 [facility] Comment on above: Performed By: #### M 100.678 #### [facility] [address] [place], [address] Monocytes/100 WBC (Bld) 9.5 % Normal 0-10 [facility] Comment on above: Performed By: #### M 100.678 #### [facility] [address] [place], [address] Neutrophils/100 WBC (Bld) 71.1 % High 47-70 [facility] Comment on above: Performed By: #### M 100.678 #### [facility] [address] [place], [address] Nucleated RBC (Bld) [#/Vol] 0 10*3/uL Normal 0-5 [facility] Comment on above: Performed By: #### M 100.678 #### [facility] [address] [place], [address] Platelet mean volume (Bld) [Entitic vol] 11.1 fL Normal 6.2-12.0 [facility] Comment on above: Performed By: #### M 100.678 #### [facility] [address] [place], [address] Platelets (Bld) [#/Vol] 196 10*3/uL Normal 150-450 [facility] Comment on above: Performed By: #### M 100.678 #### [facility] [address] [place], [address] RBC (Bld) [#/Vol] 4.91 10*6/uL Normal 4.2-5.4 [facility] Comment on above: Performed By: #### M 100.678 #### [facility] [address] [place], [address] RDW SD 45.5 fl High 35.1-43.9 [facility] Comment on above: Performed By: #### M 100.678 #### [facility] [address] [place], [address] WBC (Bld) [#/Vol] 8.1 10*3/uL Normal 4.4-11.0 [place] Comment on above: Performed By: #### M 100.678 #### [facility] [address] [place], [address] CBC-Complete Blood Cnt No Di ffon 10-14-2024 Erythrocyte distribution width (RBC) [Ratio] 13.9 % Normal 11.6-14.6 [facility] Comment on above: Performed By: #### L 500.4050, L501.4020, L501.2450, L100.0500 #### [facility] [address] [place], [address] Hematocrit (Bld) [Volume fraction] 45.8 % Normal 37-47 [facility] Comment on above: Performed By: #### L 500.4050, L501.4020, L501.2450, L100.0500 #### [facility] [address] [place], [address] Hemoglobin (Bld) [Mass/Vol] 15.1 g/dL High 12.0-15.0 [facility] Comment on above: Performed By: #### L 500.4050, L501.4020, L501.2450, L100.0500 #### [facility] [address] [place], [address] MCH (RBC) [Entitic mass] 29.1 pg Normal 27.0-32.0 [facility] Comment on above: Performed By: #### L 500.4050, L501.4020, L501.2450, L100.0500 #### [facility] [address] [place], [address] MCHC (RBC) [Mass/Vol] 33.0 g/dL Normal 32-36 [facility] Comment on above: Performed By: #### L 500.4050, L501.4020, L501.2450, L100.0500 #### [facility] [address] [place], [address] MCV (RBC) [Entitic vol] 88.2 fL Normal 81-99 [facility] Comment on above: Performed By: #### L 500.4050, L501.4020, L501.2450, L100.0500 #### [facility] [address] [place], [address] Platelet mean volume (Bld) [Entitic vol] 9.6 fL Normal 6.2-12.0 [facility] Comment on above: Performed By: #### L 500.4050, L501.4020, L501.2450, L100.0500 #### [facility] [address] [place], [address] Platelets (Bld) [#/Vol] 217 10*3/uL Normal 150-450 [facility] Comment on above: Performed By: #### L 500.4050, L501.4020, L501.2450, L100.0500 #### [facility] [address] [place], [address] RBC (Bld) [#/Vol] 5.19 10*6/uL Normal 4.2-5.4 [facility] Comment on above: Performed By: #### L 500.4050, L501.4020, L501.2450, L100.0500 #### [facility] [address] [place], [address] RDW SD 44.6 fl High 35.1-43.9 [facility] Comment on above: Performed By: #### L 500.4050, L501.4020, L501.2450, L100.0500 #### [facility] [address] [place], [address] WBC (Bld) [#/Vol] 19.5 10*3/uL High 4.4-11.0 [facility] Comment on above: Performed By: #### L 500.4050, L501.4020, L501.2450, L100.0500 #### [facility] [address] [place], [address] Carbon dioxide measurementOr dered By: Tae Holland on 10-14-2024 CO2 [Moles/Vol] 23.0 mmol/L 21.0-32.0 [facility] Chest 1 View (Portable)on Chest 1 View (Portable) [facility] Imaging Services [address] [place] [address] Chest 1 View (Portable) MR#: [id number] Acct: [id number] Name: BRENDA LE Rep #: [id number] : 1965 F 58 From: Sid Ayala DO PCP: Shelia Salmon, HARMONICA MAKER Status: REG ER Study: Chest 1 View (Portable) Date of Exam: 10/14/24 Exam# [id number] Ordering Dr: Tae Holland DO [id number] INDICATION: Cough EXAMINATION/TECHNIQUE: X-RAY - XR Chest [...] CC: ESEQUIEL Salmon; Dr. Tae Holland DO Sound Art Instructor: Signed Normal [facility] Chloride measurementOrdered By: Tae Holland on 10-14-2024 Chloride [Moles/Vol] 96 mmol/L Low 98-107 [facility] Comprehensive Metabolic Prof ilon 10-14-2024 Albumin [Mass/Vol] 3.5 g/dL Normal 3.2-5.0 [place] Comment on above: Order Comment: 'TROP ' Serial specimen #1, #2 or #3: 1 Performed By: #### L 500.4050, L501.4020, L501.2450, L100.0500 #### [facility] [address] [place], [address] Albumin/Globulin [Mass ratio] 0.9 {ratio} Normal 0.9-2.4 [facility] Comment on above: Order Comment: 'TROP ' Serial specimen #1, #2 or #3: 1 Performed By: #### L 500.4050, L501.4020, L501.2450, L100.0500 #### [facility] [address] [place], [address] ALK P 110 U/L Normal 45-117 [facility] Comment on above: Order Comment: 'TROP ' Serial specimen #1, #2 or #3: 1 Performed By: #### L 500.4050, L501.4020, L501.2450, L100.0500 #### [facility] [address] [place], [address] ALT [Catalytic activity/Vol] 49 U/L Normal 13-56 [facility] Comment on above: Order Comment: 'TROP ' Serial specimen #1, #2 or #3: 1 Performed By: #### L 500.4050, L501.4020, L501.2450, L100.0500 #### [facility] [address] [place], [address] AST [Catalytic activity/Vol] 29 U/L Normal 15-37 [facility] Comment on above: Order Comment: 'TROP ' Serial specimen #1, #2 or #3: 1 Performed By: #### L 500.4050, L501.4020, L501.2450, L100.0500 #### [facility] [address] [place], [address] Bilirubin [Mass/Vol] 0.50 mg/dL Normal 0.20-1.00 [facility] Comment on above: Order Comment: 'TROP ' Serial specimen #1, #2 or #3: 1 Result Comment: For patients on eltrombopag therapy, use of Dimension [place] TBIL is not recommended. Performed By: #### L 500.4050, L501.4020, L501.2450, L100.0500 #### [facility] [address] [place], [address] BUN/CRE 31.2 RATIO High 10-20 [facility] Comment on above: Order Comment: 'TROP ' Serial specimen #1, #2 or #3: 1 Performed By: #### L 500.4050, L501.4020, L501.2450, L100.0500 #### [facility] [address] [place], [address] CA,Total 8.9 mg/dL Normal 8.5-10.1 [facility] Comment on above: Order Comment: 'TROP ' Serial specimen #1, #2 or #3: 1 Performed By: #### L 500.4050, L501.4020, L501.2450, L100.0500 #### [facility] [address] [place], [address] Chloride [Moles/Vol] 96 mmol/L Low 98-107 [facility] Comment on above: Order Comment: 'TROP ' Serial specimen #1, #2 or #3: 1 Performed By: #### L 500.4050, L501.4020, L501.2450, L100.0500 #### [facility] [address] [place], [address] CO2 [Moles/Vol] 23.0 mmol/L Normal 21.0-32.0 [facility] Comment on above: Order Comment: 'TROP ' Serial specimen #1, #2 or #3: 1 Performed By: #### L 500.4050, L501.4020, L501.2450, L100.0500 #### [facility] [address] [place], [address] Creatinine [Mass/Vol] 0.58 mg/dL Normal 0.55-1.02 [facility] Comment on above: Order Comment: 'TROP ' Serial specimen #1, #2 or #3: 1 Result Comment: The validity of the calculated GFR GFRAA in patients over 70 years has not been determined. Clinical correlation is essential. Performed By: #### L 500.4050, L501.4020, L501.2450, L100.0500 #### [facility] [address] [place], [address] EST GFR - AA 137 mL/min Normal >60 [facility] Comment on above: Order Comment: 'TROP ' Serial specimen #1, #2 or #3: 1 Result Comment: Afri can [place] GFR Calc Performed By: #### L 500.4050, L501.4020, L501.2450, L100.0500 #### [facility] [address] [place], [address] GAP 10 Normal 5-15 [facility] Comment on above: Order Comment: 'TROP ' Serial specimen #1, #2 or #3: 1 Performed By: #### L 500.4050, L501.4020, L501.2450, L100.0500 #### [facility] [address] [place], [address] GFR/1.73 sq M.predicted among non-blacks MDRD (S/P/Bld) [Vol rate/Area] 113 mL/min/{1.73_m2} Normal >60 [facility] Comment on above: Order Comment: 'TROP ' Serial specimen #1, #2 or #3: 1 Result Comment: Non- GFR Calc Performed By: #### L 500.4050, L501.4020, L501.2450, L100.0500 #### [facility] [address] [place], [address] Globulin (S) [Mass/Vol] 4.0 g/dL Normal 2.2-4.2 [facility] Comment on above: Order Comment: 'TROP ' Serial specimen #1, #2 or #3: 1 Performed By: #### L 500.4050, L501.4020, L501.2450, L100.0500 #### [facility] [address] [place], [address] Glucose [Mass/Vol] 171 mg/dL High 74-106 [place] Comment on above: Order Comment: 'TROP ' Serial specimen #1, #2 or #3: 1 Result Comment: Fast ing Glucose result greater than or equal to 126 mg/dL suggests DIABETES MELLITUS per A.D.A. criteria. Performed By: #### L 500.4050, L501.4020, L501.2450, L100.0500 #### [facility] [address] [place], [address] Potassium [Moles/Vol] 4.0 mmol/L Normal 3.5-5.1 [facility] Comment on above: Order Comment: 'TROP ' Serial specimen #1, #2 or #3: 1 Performed By: #### L 500.4050, L501.4020, L501.2450, L100.0500 #### [facility] [address] [place], [address] Sodium [Moles/Vol] 129 mmol/L Low 136-145 [place] Comment on above: Order Comment: 'TROP ' Serial specimen #1, #2 or #3: 1 Performed By: #### L 500.4050, L501.4020, L501.2450, L100.0500 #### [facility] [address] [place], [address] T PROT 7.5 g/dL Normal 6.4-8.2 [facility] Comment on above: Order Comment: 'TROP ' Serial specimen #1, #2 or #3: 1 Performed By: #### L 500.4050, L501.4020, L501.2450, L100.0500 #### [facility] [address] [place], [address] Urea nitrogen [Mass/Vol] 18 mg/dL Normal 7-18 [facility] Comment on above: Order Comment: 'TROP ' Serial specimen #1, #2 or #3: 1 Performed By: #### L 500.4050, L501.4020, L501.2450, L100.0500 #### [facility] [address] [place], [address] Emergency Department Summary on 10-14-2024 Emergency Department Summary [facility] Medical Records Department [address] [place] [address] Emergency Department Summary 10/14/24 MR#: [id number] Acct: [id number] Name: BRENDA LE Rep #: [id number] : 1965 58 From: Tae Holland DO PCP: Shelia Salmon, HARMONICA MAKER Status:REG ER Location: ED HPI History of Present Illness Chief Complaint: Nausea/Vomiting/Diarrhea [facility] Medical History Anxiety and depression COPD [...] mandibular surgery Social History housing: other details: retirement. Smoking Status: Former smoker how long ago [...] today. REVI (more content not included)... Normal [facility] Eosinophil percentageOrdered By: Lorraine Springer on 10-14-2024 Eosinophils/100 WBC (Bld) 0.4 % 0-5 [facility] Erythrocyte distribution wid th ratioOrdered By: Tae Holland on 10-14-2024 Erythrocyte distribution width (RBC) [Ratio] 13.9 % 11.6-14.6 [facility] Erythrocyte distribution wid th ratioOrdered By: Lorraine Springer on 10-14-2024 Erythrocyte distribution width (RBC) [Ratio] 14.0 % 11.6-14.6 [facility] Erythrocyte distribution wid th standard deviationOrdered By: Tae Holland on 10-14-2024 Erythrocyte distribution width (RBC) [Entitic vol] 44.6 fL High 35.1-43.9 [facility] Erythrocyte distribution wid th standard deviationOrdered By: Lorraine Springer on 10-14-2024 Erythrocyte distribution width (RBC) [Entitic vol] 45.5 fL High 35.1-43.9 [facility] Estimated glomerular filtrat ion rate (GFR) AmericanOrdered By: Tae Holland on 10-14-2024 Estimated GFR (MDRD) Amer 137 mL/min >60 [facility] Comment on above: GFR Calc Glomerular filtration rate ( GFR) estimationOrdered By: Tae Holland on 10-14-2024 Estimated GFR (MDRD) Non-Af Amer 113 mL/min >60 [facility] Comment on above: Non- GFR Calc Glucose measurementOrdered B y: Tae Holland on 10-14-2024 Glucose [Mass/Vol] 171 mg/dL High 74-106 [place] Comment on above: Fasting Glucose resu lt greater than or equal to 126 mg/dL suggests DIABETES MELLITUS per A.D.A. criteria. Hematocrit Auto (Bld) [Volum e fraction]Ordered By: Tae Holland on 10-14-2024 Hematocrit (Bld) [Volume fraction] 45.8 % 37-47 [facility] Hematocrit Auto (Bld) [Volum e fraction]Ordered By: Lorraine Springer on 10-14-2024 Hematocrit (Bld) [Volume fraction] 44.2 % 37-47 [facility] Hemoglobin measurementOrdere d By: Tae Holland on 10-14-2024 Hemoglobin (Bld) [Mass/Vol] 15.1 g/dL High 12.0-15.0 [facility] Hemoglobin measurementOrdere d By: Lorraine Springer on 10-14-2024 Hemoglobin (Bld) [Mass/Vol] 14.4 g/dL 12.0-15.0 [facility] Immature granulocytes/100 WB C Auto (Bld)Ordered By: Lorraine Springer on 10-14-2024 Immature granulocytes/100 WBC (Bld) 0.600 % 0.0-0.9 [facility] Comment on above: IG% - Immature Granu locytes (promyelocytes, myelocytes and metamyelocytes) > 1% indicates that a LEFT SHIFT is Present. Influenza virus A and B and SARS-CoV-2 (COVID-19) and Respiratory syncytial virus RNAOrdered By: Tae Holland on 10-14-2024 SARS-CoV-2 (COVID-19) RNA LUIS M+probe Ql (Unsp spec) [facility] L501.4020on 10-14-2024 TROPONIN-I HS < 3 Low 3.0-54.0 [facility] Comment on above: Order Comment: 'TROP ' Serial specimen #1, #2 or #3: 1 Result Comment: Ck wang Note: New Test Units and Gender Specific Reference Ranges. For more information see Policy Stat Procedure [place] High Sensitivity Troponin (TNIH) and attachments. Performed By: #### L 500.4050, L501.4020, L501.2450, L100.0500 #### [facility] [address] [place], [place], [address] Laboratory - Chemistry and C hemistry - challengeOrdered By: Tae Holland on 10-14-2024 AST [Catalytic activity/Vol] 29 U/L 15-37 [facility] Lipaseon 10-14-2024 Lipase [Catalytic activity/Vol] 176 U/L High 13-75 [facility] Comment on above: Order Comment: 'TROP ' Serial specimen #1, #2 or #3: 1 Result Comment: Pledonald wang note: LIPASE revised reference range effective 23. New Lipase methodology. Expected to produce lower values than the previous assay method. NEW Reference Range: 13 - 75 U/L Performed By: #### L 500.4050, L501.4020, L501.2450, L100.0500 #### [facility] [address] [place], [place], [address] Lipase measurementOrdered By : Tae Holland on 10-14-2024 Lipase [Catalytic activity/Vol] 176 U/L High 13-75 [facility] Comment on above: Please note:LIPASE r evised reference range effective 23. New Lipase methodology. Expected to produce lower values than the previous assay method. NEW Reference Range: 13 - 75 U/L Lymphocytes Auto (Unsp spec) [#/Vol]Ordered By: Lorraine Springer on 10-14-2024 Lymphocytes (Bld) [#/Vol] 1.45 10*3/uL 0.83-4.51 [facility] Lymphocytes/100 WBC Auto (Un sp spec)Ordered By: Lorraine Springer on 10-14-2024 Lymphocytes/100 WBC (Bld) 17.9 % Low 19-41 [facility] M100.678on 10-14-2024 M100.678 Pending SARS-CoV-2 (COVID 19) Negative INFLUENZA A Negative INFLUENZA B Negative RSV PCR Negative Normal [facility] Comment on above: Performed By: #### M 100.678 #### [facility] [address] [place], [address] MCV (mean corpuscular volume ) determinationOrdered By: Tae Holland on 10-14-2024 MCV (RBC) [Entitic vol] 88.2 fL 81-99 [facility] MCV (mean corpuscular volume ) determinationOrdered By: Lorraine Springer on 10-14-2024 MCV (RBC) [Entitic vol] 90.0 fL 81-99 [facility] Mean corpuscular hemoglobin (MCH) determinationOrdered By: Tae Holland on 10-14-2024 MCH (RBC) [Entitic mass] 29.1 pg 27.0-32.0 [facility] Mean corpuscular hemoglobin (MCH) determinationOrdered By: Lorraine Springer on 10-14-2024 MCH (RBC) [Entitic mass] 29.3 pg 27.0-32.0 [facility] Mean corpuscular hemoglobin concentration (MCHC) determinationOrdered By: Tae Holland on 10-14-2024 MCHC (RBC) [Mass/Vol] 33.0 g/dL 32-36 [facility] Mean corpuscular hemoglobin concentration (MCHC) determinationOrdered By: Lorraine Springer on 10-14-2024 MCHC (RBC) [Mass/Vol] 32.6 g/dL 32-36 [facility] Mean platelet volume determi nationOrdered By: Tae Holland on 10-14-2024 Platelet mean volume (Bld) [Entitic vol] 9.6 fL 6.2-12.0 [facility] Mean platelet volume determi nationOrdered By: Lorraine Springer on 10-14-2024 Platelet mean volume (Bld) [Entitic vol] 11.1 fL 6.2-12.0 [facility] Monocyte percentageOrdered B y: Lorraine Springer on 10-14-2024 Monocytes/100 WBC (Bld) 9.5 % 0-10 [facility] Neutrophil percentageOrdered By: Lorraine Springer on 10-14-2024 Neutrophils/100 WBC (Bld) 71.1 % High 47-70 [facility] Nucleated red blood cell per centageOrdered By: Lorraine Springer on 10-14-2024 Nucleated RBC/100 WBC (Bld) [Ratio] 0 % 0-5 [facility] Platelet countOrdered By: Vivi Holland on 10-14-2024 Platelets (Bld) [#/Vol] 217 10*3/uL 150-450 [facility] Platelet countOrdered By: Anastacia Springer on 10-14-2024 Platelets (Bld) [#/Vol] 196 10*3/uL 150-450 [facility] Potassium measurementOrdered By: Tae Holland on 10-14-2024 Potassium [Moles/Vol] 4.0 mmol/L 3.5-5.1 [facility] RBC Auto (Bld) [#/Vol]Ordere d By: Tae Holland on 10-14-2024 RBC (Bld) [#/Vol] 5.19 10*6/uL 4.2-5.4 [facility] RBC Auto (Bld) [#/Vol]Ordere d By: Lorraine Springer on 10-14-2024 RBC (Bld) [#/Vol] 4.91 10*6/uL 4.2-5.4 [facility] Serum anion gap measurementO rdered By: Tae Holland on 10-14-2024 Anion gap [Moles/Vol] 10 mmol/L 5-15 [facility] Serum globulin measurementOr dered By: Tea Holland on 10-14-2024 Globulin (S) [Mass/Vol] 4.0 g/dL 2.2-4.2 [facility] Serum or plasma alanine angulo otransferase (ALT) measurementOrdered By: Tae Holland on 10-14-2024 ALT [Catalytic activity/Vol] 49 U/L 13-56 [facility] Serum or plasma albumin lawrence urement (mass/volume)Ordered By: Tae Holland on 10-14-2024 Albumin [Mass/Vol] 3.5 g/dL 3.2-5.0 [place] Serum or plasma alkaline jakob sphatase measurementOrdered By: Tae Holland on 10-14-2024 ALP [Catalytic activity/Vol] 110 U/L 45-117 [facility] Serum or plasma calcium lawrence urement (mass/volume)Ordered By: Tae Holland on 10-14-2024 Calcium [Mass/Vol] 8.9 mg/dL 8.5-10.1 [place] Serum or plasma creatinine m easurement (mass/volume)Ordered By: Tae Holland on 10-14-2024 Creatinine [Mass/Vol] 0.58 mg/dL 0.55-1.02 [facility] Comment on above: The validity of the calculated GFR & GFRAA in patients over 70 years has not been determined. Clinical correlation is essential. Serum or plasma urea nitroge n measurement (mass/volume)Ordered By: Tae Holland on 10-14-2024 Urea nitrogen [Mass/Vol] 18 mg/dL 7-18 [facility] Sodium levelOrdered By: Sandra Holland on 10-14-2024 Sodium [Moles/Vol] 129 mmol/L Low 136-145 [place] Total proteinOrdered By: Gabe Holland on 10-14-2024 Protein [Mass/Vol] 7.5 g/dL 6.4-8.2 [place] Troponin IOrdered By: Tae Holland on 10-14-2024 Troponin I High Sensitivity < 3 pg/mL Low 3.0-54.0 [facility] Comment on above: Please Note: New Janeth t Units and Gender Specific Reference Ranges. For more information see Policy Stat Procedure [place] High Sensitivity Troponin (TNIH) and attachments. White blood cell (WBC) count Ordered By: Tae Holland on 10-14-2024 WBC (Bld) [#/Vol] 19.5 10*3/uL High 4.4-11.0 [facility] White blood cell (WBC) count Ordered By: Lorraine Springer on 10-14-2024 WBC (Bld) [#/Vol] 8.1 10*3/uL 4.4-11.0 [place] CNOVon 09-28-2024 CNOV Normal [facility] CNOVon 09-20-2024 CNOV Normal [facility] ECG COMPLETEon 09-20-2024 ECG COMPLETE Normal [facility] Absolute neutrophil countOrd ered By: Lorraine Springer on 09-16-2024 Neutrophils (Bld) [#/Vol] 4.6 10*3/uL 2.0-7.7 [facility] Basophil percentageOrdered B y: Lorraine Springer on 09-16-2024 Basophils/100 WBC (Bld) 0.5 % 0-1 [facility] CBC W/Diff, Automatedon -0 SMEAR COMMENT SCANNED Normal [facility] Comment on above: Performed By: #### M 100.678 #### [facility] [address] [place], [place], [id number] Eosinophil percentageOrdered By: Lorraine Springer on 09-16-2024 Eosinophils/100 WBC (Bld) 0.4 % 0-5 [facility] Erythrocyte distribution wid th ratioOrdered By: Lorraine Springer on 09-16-2024 Erythrocyte distribution width (RBC) [Ratio] 14.0 % 11.6-14.6 [facility] Erythrocyte distribution wid th standard deviationOrdered By: Lorraine Springer on 09-16-2024 Erythrocyte distribution width (RBC) [Entitic vol] 44.5 fL High 35.1-43.9 [facility] Hematocrit Auto (Bld) [Volum e fraction]Ordered By: Lorraine Springer on 09-16-2024 Hematocrit (Bld) [Volume fraction] 41.7 % 37-47 [facility] Hemoglobin measurementOrdere d By: Lorraine Springer on 09-16-2024 Hemoglobin (Bld) [Mass/Vol] 13.7 g/dL 12.0-15.0 [facility] Immature granulocytes/100 WB C Auto (Bld)Ordered By: Lorraine Springer on 09-16-2024 Immature granulocytes/100 WBC (Bld) 0.400 % 0.0-0.9 [facility] Comment on above: IG% - Immature Granu locytes (promyelocytes, myelocytes and metamyelocytes) > 1% indicates that a LEFT SHIFT is Present. Lymphocytes Auto (Unsp spec) [#/Vol]Ordered By: Lorraine Springer on 09-16-2024 Lymphocytes (Bld) [#/Vol] 2.60 10*3/uL 0.83-4.51 [facility] Lymphocytes/100 WBC Auto (Un sp spec)Ordered By: Lorraine Springer on 09-16-2024 Lymphocytes/100 WBC (Bld) 33.5 % 19-41 [facility] MCV (mean corpuscular volume ) determinationOrdered By: Lorraine Springer on 09-16-2024 MCV (RBC) [Entitic vol] 88.2 fL 81-99 [facility] Manual differential comment [place] (Bld) [Interp]Ordered By: Lorraine Springer on 09-16-2024 Differential Comment SCANNED [facility] Mean corpuscular hemoglobin (MCH) determinationOrdered By: Lorraine Springer on 09-16-2024 MCH (RBC) [Entitic mass] 29.0 pg 27.0-32.0 [facility] Mean corpuscular hemoglobin concentration (MCHC) determinationOrdered By: Lorraien Springer on 09-16-2024 MCHC (RBC) [Mass/Vol] 32.9 g/dL 32-36 [facility] Mean platelet volume determi nationOrdered By: Lorraine Springer on 09-16-2024 Platelet mean volume (Bld) [Entitic vol] 11.3 fL 6.2-12.0 [facility] Monocyte percentageOrdered B y: Lorraine Springer on 09-16-2024 Monocytes/100 WBC (Bld) 5.7 % 0-10 [facility] Neutrophil percentageOrdered By: Lorraine Springer on 09-16-2024 Neutrophils/100 WBC (Bld) 59.5 % 47-70 [facility] Nucleated red blood cell per centageOrdered By: Lorraine Springer on 09-16-2024 Nucleated RBC/100 WBC (Bld) [Ratio] 0 % 0-5 [facility] Platelet countOrdered By: Anastacia Springer on 09-16-2024 Platelets (Bld) [#/Vol] 198 10*3/uL 150-450 [facility] RBC Auto (Bld) [#/Vol]Ordere d By: Lorraine Springer on 09-16-2024 RBC (Bld) [#/Vol] 4.73 10*6/uL 4.2-5.4 [facility] White blood cell (WBC) count Ordered By: Moondonald Springer on 09-16-2024 WBC (Bld) [#/Vol] 7.8 10*3/uL 4.4-11.0 [place] CNOVon 09-08-2024 CNOV Normal [facility] Absolute neutrophil countOrd ered By: Lorraine Springer on 08-25-2024 Neutrophils (Bld) [#/Vol] 6.9 10*3/uL 2.0-7.7 [facility] Basophil percentageOrdered B y: Lorraine Springer on 08-25-2024 Basophils/100 WBC (Bld) 0.5 % 0-1 [facility] CBC W/Diff, Automatedon 08-13 Absolute Lymph 2.76 X10 3/uL Normal 0.83-4.51 [facility] Comment on above: Performed By: #### L 500.4050, L501.4020, L501.2450, L100.0500 #### [facility] Laboratory [address] [place], [address] Absolute Neut 6.9 X10 3/uL Normal 2.0-7.7 [facility] Comment on above: Performed By: #### L 500.4050, [id number], L501.2450, L100.0500 #### [facility] [address] [place], [address] Basophils/100 WBC (Bld) 0.5 % Normal 0-1 [facility] Comment on above: Performed By: #### L 500.4050, [id number], [id number], L100.0500 #### [facility] [address] [place], [address] Eosinophils/100 WBC (Bld) 0.3 % Normal 0-5 [facility] Comment on above: Performed By: #### L 500.4050, [id number], [id number], L100.0500 #### [facility] [address] [place], [address] Erythrocyte distribution width (RBC) [Ratio] 13.7 % Normal 11.6-14.6 [facility] Comment on above: Performed By: #### L 500.4050, [id number], L501.2450, L100.0500 #### [facility] [address] [place], [address] Hematocrit (Bld) [Volume fraction] 44.1 % Normal 37-47 [facility] Comment on above: Performed By: #### L 500.4050, [id number], L501.2450, L100.0500 #### [facility] [address] [place], [address] Hemoglobin (Bld) [Mass/Vol] 14.4 g/dL Normal 12.0-15.0 [facility] Comment on above: Performed By: #### L 500.4050, [id number], L501.2450, L100.0500 #### [facility] [address] [place], [address] IG% 0.900 Normal 0.0-0.9 [facility] Comment on above: Result Comment: IG% - Immature Granulocytes (promyelocytes, myelocytes and metamyelocytes) > 1% indicates that a LEFT SHIFT is Present. Performed By: #### L 500.4050, L501.4020, L501.2450, L100.0500 #### [facility] [address] [place], [address] Lymphocytes/100 WBC (Bld) 26.1 % Normal 19-41 [facility] Comment on above: Performed By: #### L 500.4050, [id number], L501.2450, L100.0500 #### [facility] [address] [place], [address] MCH (RBC) [Entitic mass] 28.9 pg Normal 27.0-32.0 [facility] Comment on above: Performed By: #### L 500.4050, [id number], L501.2450, L100.0500 #### [facility] [address] [place], [address] MCHC (RBC) [Mass/Vol] 32.7 g/dL Normal 32-36 [facility] Comment on above: Performed By: #### L 500.4050, [id number], L501.2450, L100.0500 #### [facility] [address] [place], [address] MCV (RBC) [Entitic vol] 88.4 fL Normal 81-99 [facility] Comment on above: Performed By: #### L 500.4050, [id number], [id number], L100.0500 #### [facility] [address] [place], [address] Monocytes/100 WBC (Bld) 7.1 % Normal 0-10 [facility] Comment on above: Performed By: #### L 500.4050, [id number], [id number], L100.0500 #### [facility] [address] [place], [address] Neutrophils/100 WBC (Bld) 65.1 % Normal 47-70 [facility] Comment on above: Performed By: #### L 500.4050, [id number], [id number], L100.0500 #### [facility] [address] [place], [address] Nucleated RBC (Bld) [#/Vol] 0 10*3/uL Normal 0-5 [facility] Comment on above: Performed By: #### L 500.4050, [id number], [id number], L100.0500 #### [facility] [address] [place], [address] Platelet mean volume (Bld) [Entitic vol] 11.1 fL Normal 6.2-12.0 [facility] Comment on above: Performed By: #### L 500.4050, [id number], L501.2450, L100.0500 #### [facility] [address] [place], [address] Platelets (Bld) [#/Vol] 252 10*3/uL Normal 150-450 [facility] Comment on above: Performed By: #### L 500.4050, [id number], L501.2450, L100.0500 #### [facility] [address] [place], [address] RBC (Bld) [#/Vol] 4.99 10*6/uL Normal 4.2-5.4 [facility] Comment on above: Performed By: #### L 500.4050, [id number], [id number], L100.0500 #### [facility] [address] [place], [address] RDW SD 44.1 fl High 35.1-43.9 [facility] Comment on above: Performed By: #### L 500.4050, [id number], L501.2450, L100.0500 #### [facility] [address] [place], [address] WBC (Bld) [#/Vol] 10.6 10*3/uL Normal 4.4-11.0 [facility] Comment on above: Performed By: #### L 500.4050, [id number], L501.2450, L100.0500 #### [facility] [address] [place], [address] Eosinophil percentageOrdered By: Lorraine Springer on 08-25-2024 Eosinophils/100 WBC (Bld) 0.3 % 0-5 [facility] Erythrocyte distribution wid th ratioOrdered By: Lorraine Springer on 08-25-2024 Erythrocyte distribution width (RBC) [Ratio] 13.7 % 11.6-14.6 [facility] Erythrocyte distribution wid th standard deviationOrdered By: Lorraine Springer on 08-25-2024 Erythrocyte distribution width (RBC) [Entitic vol] 44.1 fL High 35.1-43.9 [facility] Hematocrit Auto (Bld) [Volum e fraction]Ordered By: Lorraine Springer on 08-25-2024 Hematocrit (Bld) [Volume fraction] 44.1 % 37-47 [facility] Hemoglobin measurementOrdere d By: Lorraine Springer on 08-25-2024 Hemoglobin (Bld) [Mass/Vol] 14.4 g/dL 12.0-15.0 [facility] Immature granulocytes/100 WB C Auto (Bld)Ordered By: Lorraine Springer on 08-25-2024 Immature granulocytes/100 WBC (Bld) 0.900 % 0.0-0.9 [facility] Comment on above: IG% - Immature Granu locytes (promyelocytes, myelocytes and metamyelocytes) > 1% indicates that a LEFT SHIFT is Present. Lymphocytes Auto (Unsp spec) [#/Vol]Ordered By: Lorraine Springer on 08-25-2024 Lymphocytes (Bld) [#/Vol] 2.76 10*3/uL 0.83-4.51 [facility] Lymphocytes/100 WBC Auto (Un sp spec)Ordered By: Lorraine Springer on 08-25-2024 Lymphocytes/100 WBC (Bld) 26.1 % 19-41 [facility] MCV (mean corpuscular volume ) determinationOrdered By: Lorraine Springer on 08-25-2024 MCV (RBC) [Entitic vol] 88.4 fL 81-99 [facility] Mean corpuscular hemoglobin (MCH) determinationOrdered By: Lorraine Springer on 08-25-2024 MCH (RBC) [Entitic mass] 28.9 pg 27.0-32.0 [facility] Mean corpuscular hemoglobin concentration (MCHC) determinationOrdered By: Lorraine Springer on 08-25-2024 MCHC (RBC) [Mass/Vol] 32.7 g/dL 32-36 [facility] Mean platelet volume determi nationOrdered By: Lorraine Spirnger on 08-25-2024 Platelet mean volume (Bld) [Entitic vol] 11.1 fL 6.2-12.0 [facility] Monocyte percentageOrdered B y: Lorraine Springer on 08-25-2024 Monocytes/100 WBC (Bld) 7.1 % 0-10 [facility] Neutrophil percentageOrdered By: Lorraine Springer on 08-25-2024 Neutrophils/100 WBC (Bld) 65.1 % 47-70 [facility] Nucleated red blood cell per centageOrdered By: Lorraine Springer on 08-25-2024 Nucleated RBC/100 WBC (Bld) [Ratio] 0 % 0-5 [facility] Platelet countOrdered By: Anastacia Springer on 08-25-2024 Platelets (Bld) [#/Vol] 252 10*3/uL 150-450 [facility] RBC Auto (Bld) [#/Vol]Ordere d By: Lorraine Springer on 08-25-2024 RBC (Bld) [#/Vol] 4.99 10*6/uL 4.2-5.4 [facility] White blood cell (WBC) count Ordered By: Lorraine Springer on 08-25-2024 WBC (Bld) [#/Vol] 10.6 10*3/uL 4.4-11.0 [facility] CNOVon 08-24-2024 CNOV Normal [facility] CNPNon 08-18-2024 CNPN Normal [facility] CNPNon 08-16-2024 CNPN Normal [facility] CNPNon 07-31-2024 CNPN Normal [facility] CNOVon 07-23-2024 CNOV Normal [facility] CNPNon 07-22-2024 CNPN Normal [facility] CNPNon 07-14-2024 CNPN Normal [facility] CNOVon 07-06-2024 CNOV Normal [facility] CBC W Auto Differential pane l (Bld)on 03-02-2024 Basophils (Bld) [#/Vol] 0.05 10*3/uL [facility] Basophils/100 WBC (Bld) 0.6 % [facility] Differential cell count method Nom (Bld) Auto [facility] Eosinophils (Bld) [#/Vol] 0.03 10*3/uL [facility] Eosinophils/100 WBC (Bld) 0.3 % [facility] Erythrocyte distribution width (RBC) [Ratio] 13.9 % 11.5 - 15.0 % [facility] Hematocrit (Bld) [Volume fraction] 43.6 % 36.0 - 46.0 % [facility] Hemoglobin (Bld) [Mass/Vol] 14.1 g/dL 11.5 - 15.5 g/dL [facility] Immature granulocytes (Bld) [#/Vol] 0.03 10*3/uL [facility] Immature granulocytes/100 WBC (Bld) 0.3 % [facility] Interpretation and review of laboratory results Abnormal [facility] Lymphocytes (Bld) [#/Vol] 2.53 10*3/uL [facility] Lymphocytes/100 WBC (Bld) 28.7 % [facility] MCH (RBC) [Entitic mass] 28.7 pg 26. 0 - 34.0 pg [facility] MCHC (RBC) [Mass/Vol] 32.3 g/dL 30.5 - 36.0 g/dL [facility] MCV (RBC) [Entitic vol] 88.6 fL 80.0 - 100.0 fL [facility] Monocytes (Bld) [#/Vol] 0.61 10*3/uL [facility] Monocytes/100 WBC (Bld) 6.9 % [facility] Neutrophils (Bld) [#/Vol] 5.58 10*3/uL [facility] Neutrophils/100 WBC (Bld) 63.2 % [facility] Nucleated RBC (Bld) [#/Vol] [facility] Nucleated RBC/100 WBC (Bld) [Ratio] 0.0 % /100 WBC [facility] Platelet mean volume (Bld) [Entitic vol] 12.5 fL 9.0 - 12.7 fL [facility] Platelets (Bld) [#/Vol] 123 10*3/uL Low [facility] RBC (Bld) [#/Vol] 4.92 10*6/uL 3.90 - 5.2 0 m/uL [facility] WBC (Bld) [#/Vol] 8.83 10*3/uL [facility] Comprehensive metabolic 2000 panelon 03-02-2024 Albumin [Mass/Vol] 4.2 g/dL 3.9 - 4.9 g/dL [facility] ALP [Catalytic activity/Vol] 139 U/L High 34 - 123 U/L [facility] ALT [Catalytic activity/Vol] 52 U/L High 7 - 38 U/L [facility] Anion gap [Moles/Vol] 13 mmol/L 9 - 18 mmol/L [facility] AST [Catalytic activity/Vol] 38 U/L High 13 - 35 U/L [facility] Bilirubin [Mass/Vol] 0.4 mg/dL 0.2 - 1 .3 mg/dL [facility] Calcium [Mass/Vol] 10.0 mg/dL 8.5 - 10. 2 mg/dL [facility] Chloride [Moles/Vol] 98 mmol/L 97 - 10 5 mmol/L [facility] CO2 [Moles/Vol] 26 mmol/L 22 - 30 mmol/L [facility] Creatinine [Mass/Vol] 0.51 mg/dL Low 0.58 - 0.96 mg/dL [facility] GFR/1.73 sq M.predicted among non-blacks MDRD (S/P/Bld) [Vol rate/Area] 107 mL/min/{1.73_m2} - PINF [facility] Comment on above: Estimated Glomerular Filtration [...] High 74 - 99 mg/dL [facility] Comment on above: The [place] Diab[employer] Association (ADA) provides guidance for [...] Standards of Medical Care in Diabetes 2016, [place] [employer]. Diabetes Care. 2016.39(Suppl 1). Interpretation and review of laboratory results Abnormal [facility] Potassium [Moles/Vol] 4.6 mmol/L 3.7 - 5.1 mmol/L [facility] Protein [Mass/Vol] 7.7 g/dL 6.3 - 8.0 g/dL [facility] Sodium [Moles/Vol] 137 mmol/L 136 - 144 mmol/L [facility] Urea nitrogen [Mass/Vol] 19 mg/dL 7 - 21 mg/dL [facility] FOLATE, SERUMon 03-02-2024 Folate [Mass/Vol] 15.4 ng/mL 4.7 - PINF ng/mL [facility] Folate [Mass/Vol]on 03-02-20 Interpretation and review of laboratory results Normal [facility] HbA1c (Bld)on 03-02-2024 Average glucose Estimated from glycated hemoglobin (Bld) [Mass/Vol] 166 mg/dL [facility] Comment on above: eAG: (Estimated aver age glucose) is a calculated value from HgbA1c and is plastic products sales representative of the average blood glucose level in the last 2-3 month period. HbA1c (Bld) [Mass fraction] 7.4 % High 4.3 - 5.6 % [facility] Comment on above: [place] Diabetes As sociation guidelines indicate that patients with HgbA1c in the range 5.7-6.4% are at increased risk for development of diabetes, and intervention by lifestyle modification may be beneficial. HgbA1c greater or equal to 6.5% is considered diagnostic of diabetes. Interpretation and review of laboratory results Abnormal [facility] MAGNESIUMon 03-02-2024 Magnesium [Mass/Vol] 2.3 mg/dL 1.7 - 2 .3 mg/dL [facility] Magnesium [Mass/Vol]on 03-02 Interpretation and review of laboratory results Normal [facility] No Panel Informationon 03-02 Interpretation and review of laboratory results Normal [facility] T4 FREE/FREE THYROXINEon Free T4 [Mass/Vol] 0.9 ng/dL 0.9 - 1.7 ng/dL [facility] THYROID STIMULATING HORMONEo n 03-02-2024 TSH Qn 1.620 m[IU]/L [facility] Urinalysis complete panel (U )on 03-02-2024 Bacteria LM.HPF (Urine sed) [#/Area] Negative Negative /HPF [facility] Bilirubin Ql (U) Negative Negative [facility] Clarity (Unsp spec) Clear Clear [facility] Color (U) Yellow Yellow [facility] Epithelial cells LM.HPF (Urine sed) [#/Area] None Seen /HPF [facility] Glucose Test strip (U) [Mass/Vol] 3+ Abnormal Negative [facility] Hemoglobin Ql (U) Negative Negative [facility] Hyaline casts (Urine sed) [#/Area] 0 /[LPF] 0 /LPF [facility] Interpretation and review of laboratory results Abnormal [facility] Ketones Ql (U) Negative Negative [facility] Leukocyte esterase Test strip Ql (U) Negative Negative [facility] Nitrite Ql (U) Negative Negative [facility] pH (U) 6.5 [pH] NINF - 8.5 [facility] Protein (U) [Mass/Vol] Negative Negative [facility] RBC LM.HPF (Urine sed) [#/Area] 0-2 /HPF 0-2 /HPF [facility] Specific gravity (U) [Rel density] 1.009 1.005 - 1.030 [facility] Urobilinogen Ql (U) 0.2 EU/dL 0.2-1.0 EU/dL [facility] WBC LM.HPF (Urine sed) [#/Area] 0-5 /HPF 0-5 /HPF [facility] This test was [employer] and its performance characteristics determined by [facility]'s Koby JMeghan [facility] [place] ([facility]). It has not been cleared or approved by the FDA. [facility] is regulated under CLIA as qualified to perform high-complexity testing. This test is used for clinical purposes. It should not be regarded as investigational or for research. [facility] Absolute lymphocyte countOrd ered By: Lorraine Springer on 02-03-2024 Lymphocytes Auto (Unsp spec) [#/Vol] 2.53 10*3/uL 0.83-4.51 [facility] Automated lymphocyte count a s percentage of total leukocytesOrdered By: Lorraine Springer on 02-03-2024 Lymphocytes/100 WBC Auto (Unsp spec) 25.5 % 19-41 [facility] Basophil percentageOrdered B y: Lorraine Springer on 02-03-2024 Basophils/100 WBC (Bld) 0.4 % 0-1 [facility] Eosinophils/100 WBC (Bld) 0.5 % 0-5 [facility] Hemoglobin (Bld) [Mass/Vol] 13.5 g/dL 12.0-15.0 [facility] Monocytes/100 WBC (Bld) 6.8 % 0-10 [facility] Neutrophils (Bld) [#/Vol] 6.6 10*3/uL 2.0-7.7 [facility] Neutrophils/100 WBC (Bld) 66.5 % 47-70 [facility] WBC (Bld) [#/Vol] 9.9 10*3/uL 4.4-11.0 [place] Determination of erythrocyte mean corpuscular volume (MCV)Ordered By: Lorraine Springer on 02-03-2024 MCV (RBC) [Entitic vol] 88.7 fL 81-99 [facility] Erythrocyte distribution wid th ratioOrdered By: Lorraine Springer on 02-03-2024 Erythrocyte distribution width (RBC) [Ratio] 13.8 % 11.6-14.6 [facility] Erythrocyte distribution wid th standard deviationOrdered By: Lorraine Springer on 02-03-2024 Erythrocyte distribution width (RBC) [Entitic vol] 44.4 fL 35.1-43.9 [facility] Hematocrit Auto (Bld) [Volum e fraction]Ordered By: Lorraine Springer on 02-03-2024 Hematocrit (Bld) [Volume fraction] 41.7 % 37-47 [facility] Immature granulocytes/100 WB C Auto (Bld)Ordered By: Lorraine Springer on 02-03-2024 Immature granulocytes/100 WBC (Bld) 0.300 % 0.0-0.9 [facility] Comment on above: IG% - Immature Granu locytes (promyelocytes, myelocytes and metamyelocytes) > 1% indicates that a LEFT SHIFT is Present. Laboratory - Hematology and Cell countsOrdered By: Lorraine Springer on 02-03-2024 MCH (RBC) [Entitic mass] 28.7 pg 27.0-32.0 [facility] MCHC (RBC) [Mass/Vol] 32.4 g/dL 32-36 [facility] Nucleated RBC/100 WBC (Bld) [Ratio] 0 % 0-5 [facility] Platelet mean volume (Bld) [Entitic vol] 11.1 fL 6.2-12.0 [facility] Platelets (Bld) [#/Vol] 190 10*3/uL 150-450 [facility] RBC Auto (Bld) [#/Vol]Ordere d By: Lorraine Springer on 02-03-2024 RBC (Bld) [#/Vol] 4.70 10*6/uL 4.2-5.4 [facility] Absolute lymphocyte countOrd ered By: Lorraine Springer on 01-07-2024 Lymphocytes Auto (Unsp spec) [#/Vol] 1.58 10*3/uL 0.83-4.51 [facility] Automated lymphocyte count a s percentage of total leukocytesOrdered By: Lorraine Springer on 01-07-2024 Lymphocytes/100 WBC Auto (Unsp spec) 21.1 % 19-41 [facility] Basophil percentageOrdered B y: Lorraine Springer on 01-07-2024 Basophils/100 WBC (Bld) 0.4 % 0-1 [facility] Eosinophils/100 WBC (Bld) 0.1 % 0-5 [facility] Hemoglobin (Bld) [Mass/Vol] 13.1 g/dL 12.0-15.0 [facility] Monocytes/100 WBC (Bld) 3.7 % 0-10 [facility] Neutrophils (Bld) [#/Vol] 5.6 10*3/uL 2.0-7.7 [facility] Neutrophils/100 WBC (Bld) 74.3 % 47-70 [facility] WBC (Bld) [#/Vol] 7.5 10*3/uL 4.4-11.0 [place] Determination of erythrocyte mean corpuscular volume (MCV)Ordered By: Lorraine Springer on 01-07-2024 MCV (RBC) [Entitic vol] 89.5 fL 81-99 [facility] Erythrocyte distribution wid th ratioOrdered By: Lorraine Springer on 01-07-2024 Erythrocyte distribution width (RBC) [Ratio] 13.7 % 11.6-14.6 [facility] Erythrocyte distribution wid th standard deviationOrdered By: Lorraine Springer on 01-07-2024 Erythrocyte distribution width (RBC) [Entitic vol] 44.7 fL 35.1-43.9 [facility] Hematocrit Auto (Bld) [Volum e fraction]Ordered By: Lorraine Springer on 01-07-2024 Hematocrit (Bld) [Volume fraction] 41.1 % 37-47 [facility] Immature granulocytes/100 WB C Auto (Bld)Ordered By: Lorraine Springer on 01-07-2024 Immature granulocytes/100 WBC (Bld) 0.400 % 0.0-0.9 [facility] Comment on above: IG% - Immature Granu locytes (promyelocytes, myelocytes and metamyelocytes) > 1% indicates that a LEFT SHIFT is Present. Laboratory - Hematology and Cell countsOrdered By: Lorraine Springer on 01-07-2024 MCH (RBC) [Entitic mass] 28.5 pg 27.0-32.0 [facility] MCHC (RBC) [Mass/Vol] 31.9 g/dL 32-36 [facility] Nucleated RBC/100 WBC (Bld) [Ratio] 0 % 0-5 [facility] Platelet mean volume (Bld) [Entitic vol] 10.8 fL 6.2-12.0 [facility] Platelets (Bld) [#/Vol] 188 10*3/uL 150-450 [facility] RBC Auto (Bld) [#/Vol]Ordere d By: Lorraine Springer on 01-07-2024 RBC (Bld) [#/Vol] 4.59 10*6/uL 4.2-5.4 [facility] Absolute lymphocyte countOrd ered By: Jey Quesada on 12-13-2023 Lymphocytes Auto (Unsp spec) [#/Vol] 1.30 10*3/uL 0.83-4.51 [facility] Automated lymphocyte count a s percentage of total leukocytesOrdered By: Jey Quesada on 12-13-2023 Lymphocytes/100 WBC Auto (Unsp spec) 8.5 % 19-41 [facility] Basophil percentageOrdered B y: Jey Quesada on 12-13-2023 Basophil percentage 0-5 SEEN /hpf 0-5 [facility] Basophils/100 WBC (Bld) 0.2 % 0-1 [facility] Bilirubin [Mass/Vol] 0.50 mg/dL 0.20-1.00 [facility] Comment on above: For patients on eltr ombopag therapy, use of [employer] [place] TBIL is not recommended. Chloride [Moles/Vol] 100 mmol/L 98-107 [facility] Eosinophils/100 WBC (Bld) 0.3 % 0-5 [facility] Glucose [Mass/Vol] 146 mg/dL 74-106 [place] Comment on above: Fasting Glucose resu lt greater than or equal to 126 mg/dL suggests DIABETES MELLITUS per A.D.A. criteria. Hemoglobin (Bld) [Mass/Vol] 14.1 g/dL 12.0-15.0 [facility] Monocytes/100 WBC (Bld) 7.2 % 0-10 [facility] Neutrophils (Bld) [#/Vol] 12.8 10*3/uL 2.0-7.7 [facility] Neutrophils/100 WBC (Bld) 83.5 % 47-70 [facility] Potassium [Moles/Vol] 4.1 mmol/L 3.5-5.1 [facility] Protein [Mass/Vol] 7.2 g/dL 6.4-8.2 [place] Sodium [Moles/Vol] 129 mmol/L 136-145 [place] WBC (Bld) [#/Vol] 15.3 10*3/uL 4.4-11.0 [facility] Bilirubin Test strip Ql (U)O rdered By: Jey Quesada on 12-13-2023 Bilirubin Ql (U) Negative Negative [facility] Determination of erythrocyte mean corpuscular volume (MCV)Ordered By: Jey Quesada on 12-13-2023 MCV (RBC) [Entitic vol] 87.1 fL 81-99 [facility] Erythrocyte distribution wid th ratioOrdered By: Jey Quesada on 12-13-2023 Erythrocyte distribution width (RBC) [Ratio] 13.5 % 11.6-14.6 [facility] Erythrocyte distribution wid th standard deviationOrdered By: Jey Quesada on 12-13-2023 Erythrocyte distribution width (RBC) [Entitic vol] 42.6 fL 35.1-43.9 [facility] Hematocrit Auto (Bld) [Volum e fraction]Ordered By: Jey Quesada on 12-13-2023 Hematocrit (Bld) [Volume fraction] 42.7 % 37-47 [facility] Immature granulocytes/100 WB C Auto (Bld)Ordered By: Jey Quesada on 12-13-2023 Immature granulocytes/100 WBC (Bld) 0.300 % 0.0-0.9 [facility] Comment on above: IG% - Immature Granu locytes (promyelocytes, myelocytes and metamyelocytes) > 1% indicates that a LEFT SHIFT is Present. Ketones Test strip Ql (U)Ord ered By: Jey Quesada on 12-13-2023 Ketones Ql (U) 5 mg/dl Negative [facility] Laboratory - Chemistry and C hemistry - challengeOrdered By: Jey Quesada on 12-13-2023 Albumin/Globulin [Mass ratio] 0.9 {ratio} 0.9-2.4 [facility] ALP [Catalytic activity/Vol] 141 U/L 45-117 [facility] ALT [Catalytic activity/Vol] 43 U/L 13-56 [facility] CO2 [Moles/Vol] 22.0 mmol/L 21.0-32.0 [facility] Globulin (S) [Mass/Vol] 3.7 g/dL 2.2-4.2 [facility] Lipase [Catalytic activity/Vol] 37 U/L 13-75 [facility] Comment on above: Please note:LIPASE r evised reference range effective 23. New Lipase methodology. Expected to produce lower values than the previous assay method. NEW Reference Range: 13 - 75 U/L Urea nitrogen/Creatinine [Mass ratio] 39.8 mg/mg 10-20 [facility] Laboratory - Hematology and Cell countsOrdered By: Jey Quesada on 12-13-2023 MCH (RBC) [Entitic mass] 28.8 pg 27.0-32.0 [facility] MCHC (RBC) [Mass/Vol] 33.0 g/dL 32-36 [facility] Nucleated RBC/100 WBC (Bld) [Ratio] 0 % 0-5 [facility] Platelet mean volume (Bld) [Entitic vol] 9.5 fL 6.2-12.0 [facility] Platelets (Bld) [#/Vol] 226 10*3/uL 150-450 [facility] Laboratory - Microbiology an d Antimicrobial susceptibilityOrdered By: Jey Quesada on 12-13-2023 SARS-CoV-2 (COVID-19) RNA LUIS M+probe Ql (Unsp spec) [facility] SARS-CoV-2 (COVID-19) RNA LUIS M+probe Ql (Unsp spec) [facility] Mucus LM Ql (Urine sed)Order ed By: Jey Quesada on 12-13-2023 Mucus Ql (Urine sed) 0 SEEN /hpf [facility] Nitrite Test strip Ql (U)Ord ered By: Jey Quesada on 12-13-2023 Nitrite Ql (U) Negative Negative [facility] No Panel InformationOrdered By: Jey Quesada on 12-13-2023 Urine RBC 0 SEEN /hpf 0-5 [facility] Estimated Creatinine Clearance Calc 104.39 ml/min [facility] Estimated GFR (MDRD) Amer 144 mL/min >60 [facility] Comment on above: GFR Calc Estimated GFR (MDRD) Non-Af Amer 119 mL/min >60 [facility] Comment on above: Non- GFR Calc Protein Test strip Ql (U)Ord ered By: Jey Quesada on 12-13-2023 Protein Ql (U) Negative Negative [facility] RBC Auto (Bld) [#/Vol]Ordere d By: Jey Quesada on 12-13-2023 RBC (Bld) [#/Vol] 4.90 10*6/uL 4.2-5.4 [facility] Serum or plasma calcium lawrence urement (mass/volume)Ordered By: Jey Quesada on 12-13-2023 Calcium [Mass/Vol] 9.1 mg/dL 8.5-10.1 [place] Serum or plasma creatinine m easurement (mass/volume)Ordered By: Jey Quesada on 12-13-2023 Creatinine [Mass/Vol] 0.55 mg/dL 0.55-1.02 [facility] Comment on above: The validity of the calculated GFR & GFRAA in patients over 70 years has not been determined. Clinical correlation is essential. Serum or plasma urea nitroge n measurement (mass/volume)Ordered By: Jey Quesada on 12-13-2023 Urea nitrogen [Mass/Vol] 22 mg/dL 7-18 [facility] Squamous epithelial cells de tection in urine sediment by light microscopyOrdered By: Jey Quesada on 12-13-2023 Epithelial cells.squamous LM Ql (Urine sed) 0-5 SEEN /hpf 5-10 [facility] Thin prep Papanicolaou smear with manual screeningOrdered By: Jey Quesada on 12-13-2023 Thin prep Papanicolaou smear with manual screening 3.5 g/dL 3.2-5.0 [facility] Thin prep Papanicolaou smear with manual screening 23 U/L 15-37 [facility] Thin prep Papanicolaou smear with manual screening 7 5-15 [facility] Urine blood detectionOrdered By: Jey Quesada on 12-13-2023 RBC Ql (U) Negative Negative [facility] Urine clarityOrdered By: Trevor Quesada on 12-13-2023 Clarity (U) Clear Clear [facility] Urine color determinationOrd ered By: Jey Quesada on 12-13-2023 Color (U) Straw Yellow [facility] Urine glucose detectionOrder ed By: Jey Quesada on 12-13-2023 Glucose Ql (U) 1000 mg/dl Normal [facility] Urine leukocyte esterase det ection by dipstickOrdered By: Jey Quesada on 12-13-2023 Leukocyte esterase Test strip Ql (U) 25 /ul Negative [facility] Urine pHOrdered By: Jey holloway on 12-13-2023 pH (U) 6.0 [pH] 5.0 - 8.0 [facility] Urine sediment bacteria coun t by microscopy (number/high power field)Ordered By: Jey Quesada on 12-13-2023 Bacteria LM.HPF (Urine sed) [#/Area] 0 /[HPF] None Seen [facility] Urine specific gravity measu rementOrdered By: Jey Quesada on 12-13-2023 Specific gravity (U) [Rel density] 1.010 1.002-1.030 [facility] Urine urobilinogen measureme ntOrdered By: Jey Quesada on 12-13-2023 Urobilinogen Ql (U) Normal mg/dl Normal [facility] Absolute lymphocyte countOrd ered By: [facility] Springer on 11-19-2023 Lymphocytes Auto (Unsp spec) [#/Vol] 2.19 10*3/uL 0.83-4.51 [facility] Automated lymphocyte count a s percentage of total leukocytesOrdered By: Lorraine Springer on 11-19-2023 Lymphocytes/100 WBC Auto (Unsp spec) 23.3 % 19-41 [facility] Basophil percentageOrdered B y: Lorraine Springer on 11-19-2023 Basophils/100 WBC (Bld) 0.5 % 0-1 [facility] Eosinophils/100 WBC (Bld) 0.1 % 0-5 [facility] Hemoglobin (Bld) [Mass/Vol] 14.6 g/dL 12.0-15.0 [facility] Monocytes/100 WBC (Bld) 5.8 % 0-10 [facility] Neutrophils (Bld) [#/Vol] 6.6 10*3/uL 2.0-7.7 [facility] Neutrophils/100 WBC (Bld) 69.9 % 47-70 [facility] WBC (Bld) [#/Vol] 9.4 10*3/uL 4.4-11.0 [place] Determination of erythrocyte mean corpuscular volume (MCV)Ordered By: Lorraine Springer on 11-19-2023 MCV (RBC) [Entitic vol] 90.4 fL 81-99 [facility] Erythrocyte distribution wid th ratioOrdered By: Lorraine Springer on 11-19-2023 Erythrocyte distribution width (RBC) [Ratio] 13.6 % 11.6-14.6 [facility] Erythrocyte distribution wid th standard deviationOrdered By: Lorraine Springer on 11-19-2023 Erythrocyte distribution width (RBC) [Entitic vol] 45.4 fL 35.1-43.9 [facility] Hematocrit Auto (Bld) [Volum e fraction]Ordered By: Lorraine Springer on 11-19-2023 Hematocrit (Bld) [Volume fraction] 46.2 % 37-47 [facility] Immature granulocytes/100 WB C Auto (Bld)Ordered By: Lorraine Springer on 11-19-2023 Immature granulocytes/100 WBC (Bld) 0.400 % 0.0-0.9 [facility] Comment on above: IG% - Immature Granu locytes (promyelocytes, myelocytes and metamyelocytes) > 1% indicates that a LEFT SHIFT is Present. Laboratory - Hematology and Cell countsOrdered By: Lorraine Springer on 11-19-2023 MCH (RBC) [Entitic mass] 28.6 pg 27.0-32.0 [facility] MCHC (RBC) [Mass/Vol] 31.6 g/dL 32-36 [facility] Nucleated RBC/100 WBC (Bld) [Ratio] 0 % 0-5 [facility] Platelet mean volume (Bld) [Entitic vol] 11.3 fL 6.2-12.0 [facility] Platelets (Bld) [#/Vol] 202 10*3/uL 150-450 [facility] RBC Auto (Bld) [#/Vol]Ordere d By: Lorraine Springer on 11-19-2023 RBC (Bld) [#/Vol] 5.11 10*6/uL 4.2-5.4 [facility] Absolute lymphocyte countOrd ered By: Lorraine Springer on 10-22-2023 Lymphocytes Auto (Unsp spec) [#/Vol] 1.91 10*3/uL 0.83-4.51 [facility] Basophil percentageOrdered B y: Lorraine Springer on 10-22-2023 Basophils/100 WBC (Bld) 0.6 % 0-1 [facility] Eosinophils/100 WBC (Bld) 4.5 % 0-5 [facility] Neutrophils (Bld) [#/Vol] 5.2 10*3/uL 2.0-7.7 [facility] Neutrophils/100 WBC (Bld) 62.0 % 47-70 [facility] WBC (Bld) [#/Vol] 8.3 10*3/uL 4.4-11.0 [place] Blood erythrocytes count (nu mber/volume)Ordered By: Lorraine Springer on 10-22-2023 RBC (Bld) [#/Vol] 4.95 10*6/uL 4.2-5.4 [facility] Blood hemoglobin measurement (mass/volume)Ordered By: Lorraine Springer on 10-22-2023 Hemoglobin (Bld) [Mass/Vol] 14.4 g/dL 12.0-15.0 [facility] Blood lymphocytes/100 leukoc ytesOrdered By: Lorraine Springer on 10-22-2023 Lymphocytes/100 WBC (Bld) 23.0 % 19-41 [facility] Blood manual differential co mment interpretation (narrative result)Ordered By: Lorraine Springer on 10-22-2023 Manual differential comment Diego (Bld) [Interp] SCANNED [facility] Blood monocytes/100 leukocyt esOrdered By: Lorraine Springer on 10-22-2023 Monocytes/100 WBC (Bld) 9.5 % 0-10 [facility] Blood platelet mean volumeOr dered By: Lorraine Springer on 10-22-2023 Platelet mean volume (Bld) [Entitic vol] 9.9 fL 6.2-12.0 [facility] Determination of erythrocyte mean corpuscular volume (MCV)Ordered By: Lorraine Springer on 10-22-2023 MCV (RBC) [Entitic vol] 90.7 fL 81-99 [facility] Hematocrit Auto (Bld) [Volum e fraction]Ordered By: Lorraine Springer on 10-22-2023 Hematocrit (Bld) [Volume fraction] 44.9 % 37-47 [facility] Laboratory - Hematology and Cell countsOrdered By: Lorraine Springer on 10-22-2023 Erythrocyte distribution width (RBC) [Entitic vol] 46.6 fL 35.1-43.9 [facility] Erythrocyte distribution width (RBC) [Ratio] 14.0 % 11.6-14.6 [facility] Immature granulocytes/100 WBC (Bld) 0.400 % 0.0-0.9 [facility] Comment on above: IG% - Immature Granu locytes (promyelocytes, myelocytes and metamyelocytes) > 1% indicates that a LEFT SHIFT is Present. MCH (RBC) [Entitic mass] 29.1 pg 27.0-32.0 [facility] Nucleated RBC/100 WBC (Bld) [Ratio] 0 % 0-5 [facility] MCHC Auto (RBC) [Mass/Vol]Or dered By: Lorraine Springer on 10-22-2023 MCHC (RBC) [Mass/Vol] 32.1 g/dL 32-36 [facility] Platelets bldOrdered By: Moon Springer on 10-22-2023 Platelets (Bld) [#/Vol] 217 10*3/uL 150-450 [facility] Absolute lymphocyte countOrd ered By: Lorraine Springer on 09-17-2023 Lymphocytes Auto (Unsp spec) [#/Vol] 1.96 10*3/uL 0.83-4.51 [facility] Basophil percentageOrdered B y: Lorraine Springer on 09-17-2023 Basophils/100 WBC (Bld) 0.6 % 0-1 [facility] Eosinophils/100 WBC (Bld) 0.0 % 0-5 [facility] Neutrophils (Bld) [#/Vol] 4.6 10*3/uL 2.0-7.7 [facility] Neutrophils/100 WBC (Bld) 65.4 % 47-70 [facility] WBC (Bld) [#/Vol] 7.0 10*3/uL 4.4-11.[address] [facility] Blood erythrocytes count (nu mber/volume)Ordered By: Lorraine Springer on 09-17-2023 RBC (Bld) [#/Vol] 4.75 10*6/uL 4.2-5.4 [place] [facility] Blood hemoglobin measurement (mass/volume)Ordered By: Lorraine Springer on 09-17-2023 Hemoglobin (Bld) [Mass/Vol] 13.8 g/dL 12.0-15.0 [facility] Blood lymphocytes/100 leukoc ytesOrdered By: Lorraine Springer on 09-17-2023 Lymphocytes/100 WBC (Bld) 28.1 % 19-41 [facility] Blood monocytes/100 leukocyt esOrdered By: Lorraine Springer on 09-17-2023 Monocytes/100 WBC (Bld) 5.6 % 0-10 [facility] Blood platelet mean volumeOr dered By: Lorraine Springer on 09-17-2023 Platelet mean volume (Bld) [Entitic vol] 10.9 fL 6.2-12.0 [facility] Determination of erythrocyte mean corpuscular volume (MCV)Ordered By: Lorraine Springer on 09-17-2023 MCV (RBC) [Entitic vol] 92.4 fL 81-99 [facility] Hematocrit Auto (Bld) [Volum e fraction]Ordered By: Lorraine Springer on 09-17-2023 Hematocrit (Bld) [Volume fraction] 43.9 % 37-47 [facility] Laboratory - Hematology and Cell countsOrdered By: Lorraine Springer on 09-17-2023 Erythrocyte distribution width (RBC) [Entitic vol] 46.8 fL 35.1-43.9 [facility] Erythrocyte distribution width (RBC) [Ratio] 13.8 % 11.6-14.6 [facility] Immature granulocytes/100 WBC (Bld) 0.300 % 0.0-0.9 [facility] Comment on above: IG% - Immature Granu locytes (promyelocytes, myelocytes and metamyelocytes) > 1% indicates that a LEFT SHIFT is Present. MCH (RBC) [Entitic mass] 29.1 pg 27.0-32.0 [facility] Nucleated RBC/100 WBC (Bld) [Ratio] 0 % 0-5 [facility] MCHC Auto (RBC) [Mass/Vol]Or dered By: Lorraine Springer on 09-17-2023 MCHC (RBC) [Mass/Vol] 31.4 g/dL 32-36 [facility] Platelets bldOrdered By: Moon Springer on 09-17-2023 Platelets (Bld) [#/Vol] 210 10*3/uL 150-450 [facility] Absolute lymphocyte countOrd ered By: Lorraine Springer on 08-19-2023 Lymphocytes Auto (Unsp spec) [#/Vol] 2.06 10*3/uL 0.83-4.51 [facility] Basophil percentageOrdered B y: Lorraine Springer on 08-19-2023 Basophils/100 WBC (Bld) 0.4 % 0-1 [facility] Eosinophils/100 WBC (Bld) 3.3 % 0-5 [facility] Neutrophils (Bld) [#/Vol] 13.0 10*3/uL 2.0-7.7 [facility] Neutrophils/100 WBC (Bld) 79.2 % 47-70 [facility] WBC (Bld) [#/Vol] 16.5 10*3/uL 4.4-11.0 [facility] Blood erythrocytes count (nu mber/volume)Ordered By: Lorraine Springer on 08-19-2023 RBC (Bld) [#/Vol] 5.07 10*6/uL 4.2-5.4 [facility] Blood hemoglobin measurement (mass/volume)Ordered By: Lorraine Springer on 08-19-2023 Hemoglobin (Bld) [Mass/Vol] 14.7 g/dL 12.0-15.0 [facility] Blood lymphocytes/100 leukoc ytesOrdered By: Lorraine Springer on 08-19-2023 Lymphocytes/100 WBC (Bld) 12.5 % 19-41 [facility] Blood monocytes/100 leukocyt esOrdered By: Lorraine Springer on 08-19-2023 Monocytes/100 WBC (Bld) 3.3 % 0-10 [facility] Blood platelet mean volumeOr dered By: Lorraine Springer on 08-19-2023 Platelet mean volume (Bld) [Entitic vol] 11.3 fL 6.2-12.0 [facility] Determination of erythrocyte mean corpuscular volume (MCV)Ordered By: Lorraine Springer on 08-19-2023 MCV (RBC) [Entitic vol] 89.7 fL 81-99 [facility] Hematocrit Auto (Bld) [Volum e fraction]Ordered By: Lorraine Springer on 08-19-2023 Hematocrit (Bld) [Volume fraction] 45.5 % 37-47 [facility] Laboratory - Hematology and Cell countsOrdered By: Lorraine Springer on 08-19-2023 Erythrocyte distribution width (RBC) [Entitic vol] 42.5 fL 35.1-43.9 [facility] Erythrocyte distribution width (RBC) [Ratio] 13.1 % 11.6-14.6 [facility] Immature granulocytes/100 WBC (Bld) 1.300 % 0.0-0.9 [facility] Comment on above: IG% - Immature Granu locytes (promyelocytes, myelocytes and metamyelocytes) > 1% indicates that a LEFT SHIFT is Present. MCH (RBC) [Entitic mass] 29.0 pg 27.0-32.0 [facility] Nucleated RBC/100 WBC (Bld) [Ratio] 0 % 0-5 [facility] MCHC Auto (RBC) [Mass/Vol]Or dered By: Lorraine Springer on 08-19-2023 MCHC (RBC) [Mass/Vol] 32.3 g/dL 32-36 [facility] Platelets bldOrdered By: Moon Springer on 08-19-2023 Platelets (Bld) [#/Vol] 256 10*3/uL 150-450 [facility] Absolute lymphocyte countOrd ered By: Hesham Noguera on 08-16-2023 Lymphocytes Auto (Unsp spec) [#/Vol] 2.00 10*3/uL 0.83-4.51 [facility] Basophil percentageOrdered B y: Hesham Noguera on 08-16-2023 Basophil percentage 3.1 mg/dL 2.5-4.9 [facility] Basophils/100 WBC (Bld) 0.2 % 0-1 [facility] Chloride [Moles/Vol] 107 mmol/L 98-107 [facility] Eosinophils/100 WBC (Bld) 0.0 % 0-5 [facility] Glucose [Mass/Vol] 173 mg/dL 74-106 [place] Comment on above: Fasting Glucose resu lt greater than or equal to 126 mg/dL suggests DIABETES MELLITUS per A.D.A. criteria. Neutrophils (Bld) [#/Vol] 12.8 10*3/uL 2.0-7.7 [facility] Neutrophils/100 WBC (Bld) 81.8 % 47-70 [facility] Potassium [Moles/Vol] 4.2 mmol/L 3.5-5.1 [facility] Sodium [Moles/Vol] 140 mmol/L 136-145 [place] WBC (Bld) [#/Vol] 15.7 10*3/uL 4.4-11.0 [facility] Blood erythrocytes count (nu mber/volume)Ordered By: Hesham Noguera on 08-16-2023 RBC (Bld) [#/Vol] 4.49 10*6/uL 4.2-5.4 [facility] Blood hemoglobin measurement (mass/volume)Ordered By: Hesham Noguera on 08-16-2023 Hemoglobin (Bld) [Mass/Vol] 13.1 g/dL 12.0-15.0 [facility] Blood lymphocytes/100 leukoc ytesOrdered By: Hesham Noguera on 08-16-2023 Lymphocytes/100 WBC (Bld) 12.7 % 19-41 [facility] Blood monocytes/100 leukocyt esOrdered By: Hesham Noguera on 08-16-2023 Monocytes/100 WBC (Bld) 4.6 % 0-10 [facility] Blood platelet mean volumeOr dered By: Hesham Noguera on 08-16-2023 Platelet mean volume (Bld) [Entitic vol] 11.2 fL 6.2-12.0 [facility] Determination of erythrocyte mean corpuscular volume (MCV)Ordered By: Hesham Noguera on 08-16-2023 MCV (RBC) [Entitic vol] 92.4 fL 81-99 [facility] Glucose Glucometer (BldC) [M ass/Vol]Ordered By: Hesham Noguera on 08-16-2023 Glucose [Mass/Vol] 206 mg/dL 74-106 [place] Comment on above: MANAGEMENT OF PATIEN T CARE PER NURSING PROTOCOL Hematocrit Auto (Bld) [Volum e fraction]Ordered By: Hesham Noguera on 08-16-2023 Hematocrit (Bld) [Volume fraction] 41.5 % 37-47 [facility] Laboratory - Chemistry and C hemistry - challengeOrdered By: Hesham Noguera on 08-16-2023 CO2 [Moles/Vol] 24.0 mmol/L 21.0-32.0 [facility] Magnesium [Mass/Vol] 2.4 mg/dL 1.6-2.6 [facility] Urea nitrogen/Creatinine [Mass ratio] 31.3 mg/mg 10-20 [facility] Laboratory - Hematology and Cell countsOrdered By: Hesham Noguera on 08-16-2023 Erythrocyte distribution width (RBC) [Entitic vol] 46.0 fL 35.1-43.9 [facility] Erythrocyte distribution width (RBC) [Ratio] 13.5 % 11.6-14.6 [facility] Immature granulocytes/100 WBC (Bld) 0.700 % 0.0-0.9 [facility] Comment on above: IG% - Immature Granu locytes (promyelocytes, myelocytes and metamyelocytes) > 1% indicates that a LEFT SHIFT is Present. MCH (RBC) [Entitic mass] 29.2 pg 27.0-32.0 [facility] Nucleated RBC/100 WBC (Bld) [Ratio] 0 % 0-5 [facility] MCHC Auto (RBC) [Mass/Vol]Or dered By: Hesham Noguera on 08-16-2023 MCHC (RBC) [Mass/Vol] 31.6 g/dL 32-36 [facility] No Panel InformationOrdered By: Hesham Noguera on 08-16-2023 Estimated Creatinine Clearance Calc 89.62 ml/min [facility] Estimated GFR (MDRD) Amer 158 mL/min >60 [facility] Comment on above: GFR Calc Estimated GFR (MDRD) Non-Af Amer 131 mL/min >60 [facility] Comment on above: Non- GFR Calc Platelets bldOrdered By: Wes Noguera on 08-16-2023 Platelets (Bld) [#/Vol] 220 10*3/uL 150-450 [facility] Serum or plasma calcium lawrence urement (mass/volume)Ordered By: Hesham Noguera on 08-16-2023 Calcium [Mass/Vol] 8.9 mg/dL 8.5-10.1 [place] Serum or plasma creatinine m easurement (mass/volume)Ordered By: Hesham Noguera on 08-16-2023 Creatinine [Mass/Vol] 0.51 mg/dL 0.55-1.02 [facility] Comment on above: The validity of the calculated GFR & GFRAA in patients over 70 years has not been determined. Clinical correlation is essential. Serum or plasma urea nitroge n measurement (mass/volume)Ordered By: Hesham Noguera on 08-16-2023 Urea nitrogen [Mass/Vol] 16 mg/dL 7-18 [facility] Thin prep Papanicolaou smear with manual screeningOrdered By: Hesham Noguera on 08-16-2023 Thin prep Papanicolaou smear with manual screening 9 5-15 [facility] Basophil percentageOrdered B y: Amy Moreno on 08-15-2023 Bilirubin [Mass/Vol] 0.70 mg/dL 0.20-1.00 [facility] Comment on above: For patients on eltr ombopag therapy, use of Dimension [place] TBIL is not recommended. Protein [Mass/Vol] 7.5 g/dL 6.4-8.2 [place] [facility] - Chemistry and C hemistry - challengeOrdered By: Amy Moreno on 08-15-2023 ALP [Catalytic activity/Vol] 148 U/L 45-117 [facility] ALT [Catalytic activity/Vol] 75 U/L 13-56 [facility] Globulin (S) [Mass/Vol] 4.3 g/dL 2.2-4.2 [facility] Serum or plasma albumin lawrence urement (mass/volume)Ordered By: Amy Moreno on 08-15-2023 Albumin [Mass/Vol] 3.2 g/dL 3.2-5.0 [place] Serum or plasma albumin/glob ulin mass ratioOrdered By: Amy Moreno on 08-15-2023 Albumin/Globulin [Mass ratio] 0.7 {ratio} 0.9-2.4 [facility] Thin prep Papanicolaou smear with manual screeningOrdered By: Amy Moreno on 08-15-2023 Thin prep Papanicolaou smear with manual screening 32 U/L 15-37 [facility] Absolute lymphocyte countOrd ered By: Jey Quesada on 08-14-2023 Lymphocytes Auto (Unsp spec) [#/Vol] 1.62 10*3/uL 0.83-4.51 [facility] Basophil percentageOrdered B y: Jey Quesada on 08-14-2023 Basophils/100 WBC (Bld) 0.4 % 0-1 [facility] Bilirubin [Mass/Vol] 0.70 mg/dL 0.20-1.00 [facility] Comment on above: For patients on eltr ombopag therapy, use of Dimension [place] TBIL is not recommended. Chloride [Moles/Vol] 102 mmol/L 98-107 [facility] Eosinophils/100 WBC (Bld) 0.0 % 0-5 [facility] Glucose [Mass/Vol] 153 mg/dL 74-106 [place] Comment on above: Fasting Glucose resu lt greater than or equal to 126 mg/dL suggests DIABETES MELLITUS per A.D.A. criteria. Neutrophils (Bld) [#/Vol] 10.5 10*3/uL 2.0-7.7 [facility] Neutrophils/100 WBC (Bld) 79.4 % 47-70 [facility] Potassium [Moles/Vol] 3.8 mmol/L 3.5-5.1 [facility] Protein [Mass/Vol] 8.0 g/dL 6.4-8.2 [place] Sodium [Moles/Vol] 137 mmol/L 136-145 [place] WBC (Bld) [#/Vol] 13.2 10*3/uL 4.4-11.0 [facility] Blood erythrocytes count (nu mber/volume)Ordered By: Jey Quesada on 08-14-2023 RBC (Bld) [#/Vol] 4.85 10*6/uL 4.2-5.4 [facility] Blood hemoglobin measurement (mass/volume)Ordered By: Jey Quesada on 08-14-2023 Hemoglobin (Bld) [Mass/Vol] 14.0 g/dL 12.0-15.0 [facility] Blood lymphocytes/100 leukoc ytesOrdered By: Jey Quesada on 08-14-2023 Lymphocytes/100 WBC (Bld) 12.3 % 19-41 [facility] Blood monocytes/100 leukocyt esOrdered By: Jey Quesada on 08-14-2023 Monocytes/100 WBC (Bld) 7.5 % 0-10 [facility] Blood platelet mean volumeOr dered By: Jey Quesada on 08-14-2023 Platelet mean volume (Bld) [Entitic vol] 10.7 fL 6.2-12.0 [facility] Determination of erythrocyte mean corpuscular volume (MCV)Ordered By: Jey Quesada on 08-14-2023 MCV (RBC) [Entitic vol] 90.7 fL 81-99 [facility] Hematocrit Auto (Bld) [Volum e fraction]Ordered By: Jey Quesada on 08-14-2023 Hematocrit (Bld) [Volume fraction] 44.0 % 37-47 [facility] Laboratory - Chemistry and C hemistry - challengeOrdered By: Jey Quesada on 08-14-2023 ALP [Catalytic activity/Vol] 150 U/L 45-117 [facility] ALT [Catalytic activity/Vol] 72 U/L 13-56 [facility] CO2 [Moles/Vol] 26.0 mmol/L 21.0-32.0 [facility] Globulin (S) [Mass/Vol] 4.2 g/dL 2.2-4.2 [facility] Natriuretic peptide B (Bld) [Mass/Vol] 2.9 pg/mL 0-100 [facility] Urea nitrogen/Creatinine [Mass ratio] 22.2 mg/mg 10-20 [facility] Laboratory - Hematology and Cell countsOrdered By: Jey Quesada on 08-14-2023 Erythrocyte distribution width (RBC) [Entitic vol] 44.6 fL 35.1-43.9 [facility] Erythrocyte distribution width (RBC) [Ratio] 13.4 % 11.6-14.6 [facility] Immature granulocytes/100 WBC (Bld) 0.400 % 0.0-0.9 [facility] Comment on above: IG% - Immature Granu locytes (promyelocytes, myelocytes and metamyelocytes) > 1% indicates that a LEFT SHIFT is Present. MCH (RBC) [Entitic mass] 28.9 pg 27.0-32.0 [facility] Nucleated RBC/100 WBC (Bld) [Ratio] 0 % 0-5 [facility] MCHC Auto (RBC) [Mass/Vol]Or dered By: Jey Quesada on 08-14-2023 MCHC (RBC) [Mass/Vol] 31.8 g/dL 32-36 [facility] No Panel InformationOrdered By: Jey Quesada on 08-14-2023 Estimated Creatinine Clearance Calc 67.22 ml/min [facility] Estimated GFR (MDRD) Amer 114 mL/min >60 [facility] Comment on above: GFR Calc Estimated GFR (MDRD) Non-Af Amer 94 mL/min >60 [facility] Comment on above: Non- GFR Calc Troponin I High Sensitivity < 3 pg/mL 3.0-54.0 [facility] Comment on above: Please Note: New Janeth t Units and Gender Specific Reference Ranges. For more information see Policy Stat Procedure [place] High Sensitivity Troponin (TNIH) and attachments. Platelets bldOrdered By: Trevor Quesada on 08-14-2023 Platelets (Bld) [#/Vol] 182 10*3/uL 150-450 [facility] Respiratory pathogens DNA an d RNA panel LUIS M+probe (Resp)Ordered By: Amy Moreno on 08-14-2023 Respiratory Panel (PCR) Rhinovirus [facility] Serum or plasma albumin lawrence urement (mass/volume)Ordered By: Jey Quesada on 08-14-2023 Albumin [Mass/Vol] 3.8 g/dL 3.2-5.0 [place] Serum or plasma albumin/glob ulin mass ratioOrdered By: Jey Quesada on 08-14-2023 Albumin/Globulin [Mass ratio] 0.9 {ratio} 0.9-2.4 [facility] Serum or plasma calcium lawrence urement (mass/volume)Ordered By: Jye Quesada on 08-14-2023 Calcium [Mass/Vol] 9.2 mg/dL 8.5-10.1 [place] Serum or plasma creatinine m easurement (mass/volume)Ordered By: Jey Quesada on 08-14-2023 Creatinine [Mass/Vol] 0.68 mg/dL 0.55-1.02 [facility] Comment on above: The validity of the calculated GFR & GFRAA in patients over 70 years has not been determined. Clinical correlation is essential. Serum or plasma urea nitroge n measurement (mass/volume)Ordered By: Jey Quesada on 08-14-2023 Urea nitrogen [Mass/Vol] 15 mg/dL 7-18 [facility] Serum procalcitonin measurem entOrdered By: Amy Josh on 08-14-2023 Procalcitonin [Mass/Vol] 0.12 ng/mL 0.00-0.09 [facility] Comment on above: A procalcitonin [...] smear with manual screening 50 U/L 15-37 [facility] Thin prep Papanicolaou smear with manual screening 9 5-15 [facility] Absolute lymphocyte countOrd ered By: Lorraine Springer on 07-17-2023 Lymphocytes Auto (Unsp spec) [#/Vol] 1.66 10*3/uL 0.83-4.51 [facility] Basophil percentageOrdered B y: Lorraine Springer on 07-17-2023 Basophils/100 WBC (Bld) 0.4 % 0-1 [facility] Eosinophils/100 WBC (Bld) 0.3 % 0-5 [facility] Neutrophils (Bld) [#/Vol] 5.9 10*3/uL 2.0-7.7 [facility] Neutrophils/100 WBC (Bld) 73.4 % 47-70 [facility] WBC (Bld) [#/Vol] 8.0 10*3/uL 4.4-11.0 [place] Blood erythrocytes count (nu mber/volume)Ordered By: Lorraine Springer on 07-17-2023 RBC (Bld) [#/Vol] 4.53 10*6/uL 4.2-5.4 [facility] Blood hemoglobin measurement (mass/volume)Ordered By: Lorraine Springer on 07-17-2023 Hemoglobin (Bld) [Mass/Vol] 13.3 g/dL 12.0-15.0 [facility] Blood lymphocytes/100 leukoc ytesOrdered By: [facility] on 07-17-2023 Lymphocytes/100 WBC (Bld) 20.8 % 19-41 [facility] Blood monocytes/100 leukocyt esOrdered By: [facility] Springer on 07-17-2023 Monocytes/100 WBC (Bld) 5.0 % 0-10 [facility] Blood platelet mean volumeOr dered By: Lorraine Springer on 07-17-2023 Platelet mean volume (Bld) [Entitic vol] 9.5 fL 6.2-12.0 [facility] Determination of erythrocyte mean corpuscular volume (MCV)Ordered By: Lorraine Springer on 07-17-2023 MCV (RBC) [Entitic vol] 92.1 fL 81-99 [facility] Hematocrit Auto (Bld) [Volum e fraction]Ordered By: [facility] Springer on 07-17-2023 Hematocrit (Bld) [Volume fraction] 41.7 % 37-47 [facility] Laboratory - Hematology and Cell countsOrdered By: [facility] Springer on 07-17-2023 Erythrocyte distribution width (RBC) [Entitic vol] 45.3 fL 35.1-43.9 [facility] Erythrocyte distribution width (RBC) [Ratio] 13.3 % 11.6-14.6 [facility] Immature granulocytes/100 WBC (Bld) 0.100 % 0.0-0.9 [facility] Comment on above: IG% - Immature Granu locytes (promyelocytes, myelocytes and metamyelocytes) > 1% indicates that a LEFT SHIFT is Present. MCH (RBC) [Entitic mass] 29.4 pg 27.0-32.0 [facility] Nucleated RBC/100 WBC (Bld) [Ratio] 0 % 0-5 [facility] MCHC Auto (RBC) [Mass/Vol]Or dered By: Lorraine Springer on 07-17-2023 MCHC (RBC) [Mass/Vol] 31.9 g/dL 32-36 [facility] Platelets bldOrdered By: Moon Springer on 07-17-2023 Platelets (Bld) [#/Vol] 190 10*3/uL 150-450 [facility] Absolute lymphocyte countOrd ered By: Lorraine Springer on 06-18-2023 Lymphocytes Auto (Unsp spec) [#/Vol] 1.70 10*3/uL 0.83-4.51 [facility] Basophil percentageOrdered B y: Lorraine Springer on 06-18-2023 Basophils/100 WBC (Bld) 0.4 % 0-1 [facility] Eosinophils/100 WBC (Bld) 0.4 % 0-5 [facility] Neutrophils (Bld) [#/Vol] 5.3 10*3/uL 2.0-7.7 [facility] Neutrophils/100 WBC (Bld) 71.4 % 47-70 [facility] WBC (Bld) [#/Vol] 7.4 10*3/uL 4.4-11.0 [place] Blood erythrocytes count (nu mber/volume)Ordered By: Lorraine Springer on 06-18-2023 RBC (Bld) [#/Vol] 4.66 10*6/uL 4.2-5.4 [facility] Blood hemoglobin measurement (mass/volume)Ordered By: Lorraine Springer on 06-18-2023 Hemoglobin (Bld) [Mass/Vol] 13.9 g/dL 12.0-15.0 [facility] Blood lymphocytes/100 leukoc ytesOrdered By: Lorraine Springer on 06-18-2023 Lymphocytes/100 WBC (Bld) 23.1 % 19-41 [facility] Blood monocytes/100 leukocyt esOrdered By: Lorraine Springer on 06-18-2023 Monocytes/100 WBC (Bld) 4.4 % 0-10 [facility] Blood platelet mean volumeOr dered By: Lorraine Springer on 06-18-2023 Platelet mean volume (Bld) [Entitic vol] 11.9 fL 6.2-12.0 [facility] Determination of erythrocyte mean corpuscular volume (MCV)Ordered By: Lorraine Springer on 06-18-2023 MCV (RBC) [Entitic vol] 92.5 fL 81-99 [facility] Hematocrit Auto (Bld) [Volum e fraction]Ordered By: Lorraine Springer on 06-18-2023 Hematocrit (Bld) [Volume fraction] 43.1 % 37-47 [facility] Laboratory - Hematology and Cell countsOrdered By: Lorraine Springer on 06-18-2023 Erythrocyte distribution width (RBC) [Entitic vol] 46.5 fL 35.1-43.9 [facility] Erythrocyte distribution width (RBC) [Ratio] 13.6 % 11.6-14.6 [facility] Immature granulocytes/100 WBC (Bld) 0.300 % 0.0-0.9 [facility] Comment on above: IG% - Immature Granu locytes (promyelocytes, myelocytes and metamyelocytes) > 1% indicates that a LEFT SHIFT is Present. MCH (RBC) [Entitic mass] 29.8 pg 27.0-32.0 [facility] Nucleated RBC/100 WBC (Bld) [Ratio] 0 % 0-5 [facility] MCHC Auto (RBC) [Mass/Vol]Or dered By: Lorraine Springer on 06-18-2023 MCHC (RBC) [Mass/Vol] 32.3 g/dL 32-36 [facility] Platelets bldOrdered By: Moon Springer on 06-18-2023 Platelets (Bld) [#/Vol] 149 10*3/uL 150-450 [facility] NM CARDIAC PERF STRESS/PHARM on 05-26-2023 [facility] Absolute lymphocyte countOrd ered By: Lorraine Springer on 05-20-2023 Lymphocytes Auto (Unsp spec) [#/Vol] 2.71 10*3/uL 0.83-4.51 [facility] Basophil percentageOrdered B y: Lorraine Springer on 08-08-2023 Basophils/100 WBC (Bld) 0.4 % 0-1 [facility] Eosinophils/100 WBC (Bld) 0.3 % 0-5 [facility] Neutrophils (Bld) [#/Vol] 5.6 10*3/uL 2.0-7.7 [facility] Neutrophils/100 WBC (Bld) 60.5 % 47-70 [facility] WBC (Bld) [#/Vol] 9.2 10*3/uL 4.4-11.0 [place] Blood erythrocytes count (nu mber/volume)Ordered By: Lorraine Springer on 05-20-2023 RBC (Bld) [#/Vol] 4.79 10*6/uL 4.2-5.4 [facility] Blood hemoglobin measurement (mass/volume)Ordered By: Lorraine Springer on 05-20-2023 Hemoglobin (Bld) [Mass/Vol] 13.9 g/dL 12.0-15.0 [facility] Blood lymphocytes/100 leukoc ytesOrdered By: Lorraine Springer on 05-20-2023 Lymphocytes/100 WBC (Bld) 29.4 % 19-41 [facility] Blood manual differential co mment interpretation (narrative result)Ordered By: Lorraine Springer on 05-20-2023 Manual differential comment [place] (Bld) [Interp] SCANNED [facility] Blood monocytes/100 leukocyt esOrdered By: Lorraine Springer on 05-20-2023 Monocytes/100 WBC (Bld) 9.0 % 0-10 [facility] Blood platelet mean volumeOr dered By: Lorraine Springer on 05-20-2023 Platelet mean volume (Bld) [Entitic vol] 9.9 fL 6.2-12.0 [facility] Determination of erythrocyte mean corpuscular volume (MCV)Ordered By: Lorraine Springer on 05-20-2023 MCV (RBC) [Entitic vol] 92.9 fL 81-99 [facility] Hematocrit Auto (Bld) [Volum e fraction]Ordered By: Lorraine Springer on 05-20-2023 Hematocrit (Bld) [Volume fraction] 44.5 % 37-47 [facility] Laboratory - Hematology and Cell countsOrdered By: Lorraine Springer on 05-20-2023 Erythrocyte distribution width (RBC) [Entitic vol] 46.7 fL 35.1-43.9 [facility] Erythrocyte distribution width (RBC) [Ratio] 13.7 % 11.6-14.6 [facility] Immature granulocytes/100 WBC (Bld) 0.400 % 0.0-0.9 [facility] Comment on above: IG% - Immature Granu locytes (promyelocytes, myelocytes and metamyelocytes) > 1% indicates that a LEFT SHIFT is Present. MCH (RBC) [Entitic mass] 29.0 pg 27.0-32.0 [facility] Nucleated RBC/100 WBC (Bld) [Ratio] 0 % 0-5 [facility] MCHC Auto (RBC) [Mass/Vol]Or dered By: Lorraine Springer on 05-20-2023 MCHC (RBC) [Mass/Vol] 31.2 g/dL 32-36 [facility] Platelets bldOrdered By: Moon Springer on 05-20-2023 Platelets (Bld) [#/Vol] 207 10*3/uL 150-450 [facility] Absolute lymphocyte countOrd ered By: Lorraine Springer on 05-05-2023 Lymphocytes Auto (Unsp spec) [#/Vol] 2.52 10*3/uL 0.83-4.51 [facility] Basophil percentageOrdered B y: Lorraine Springer on 05-05-2023 Basophils/100 WBC (Bld) 0.6 % 0-1 [facility] Eosinophils/100 WBC (Bld) 0.2 % 0-5 [facility] Neutrophils (Bld) [#/Vol] 5.3 10*3/uL 2.0-7.7 [facility] Neutrophils/100 WBC (Bld) 61.7 % 47-70 [facility] WBC (Bld) [#/Vol] 8.6 10*3/uL 4.4-11.0 [place] Blood erythrocytes count (nu mber/volume)Ordered By: Lorraine Springer on 05-05-2023 RBC (Bld) [#/Vol] 5.01 10*6/uL 4.2-5.4 [facility] Blood hemoglobin measurement (mass/volume)Ordered By: Lorraine Springer on 05-05-2023 Hemoglobin (Bld) [Mass/Vol] 14.8 g/dL 12.0-15.0 [facility] Blood lymphocytes/100 leukoc ytesOrdered By: Lorraine Springer on 05-05-2023 Lymphocytes/100 WBC (Bld) 29.3 % 19-41 [facility] Blood monocytes/100 leukocyt esOrdered By: Lorraine Springer on 05-05-2023 Monocytes/100 WBC (Bld) 7.9 % 0-10 [facility] Blood platelet adequacy dete ction by light microscopyOrdered By: Lorraine Springer on 05-05-2023 Platelets LM Ql (Bld) ADEQUATE ADEQ [facility] Blood platelet mean volumeOr dered By: Lorraine Springer on 05-05-2023 Platelet mean volume (Bld) [Entitic vol] 10.6 fL 6.2-12.0 [facility] Determination of erythrocyte mean corpuscular volume (MCV)Ordered By: Lorraine Springer on 05-05-2023 MCV (RBC) [Entitic vol] 91.8 fL 81-99 [facility] Hematocrit Auto (Bld) [Volum e fraction]Ordered By: Lorraine Springer on 05-05-2023 Hematocrit (Bld) [Volume fraction] 46.0 % 37-47 [facility] Laboratory - Hematology and Cell countsOrdered By: Lorraine Springer on 05-05-2023 Anisocytosis Ql (Bld) RARE [facility] Erythrocyte distribution width (RBC) [Entitic vol] 45.9 fL 35.1-43.9 [facility] Erythrocyte distribution width (RBC) [Ratio] 13.7 % 11.6-14.6 [facility] Immature granulocytes/100 WBC (Bld) 0.300 % 0.0-0.9 [facility] Comment on above: IG% - Immature Granu locytes (promyelocytes, myelocytes and metamyelocytes) > 1% indicates that a LEFT SHIFT is Present. MCH (RBC) [Entitic mass] 29.5 pg 27.0-32.0 [facility] Nucleated RBC/100 WBC (Bld) [Ratio] 0 % 0-5 [facility] MCHC Auto (RBC) [Mass/Vol]Or dered By: Lorraine Springer on 05-05-2023 MCHC (RBC) [Mass/Vol] 32.2 g/dL 32-36 [facility] No Panel InformationOrdered By: Lorraine Springer on 05-05-2023 Atypical Lymphocytes 1+ % [facility] Platelets bldOrdered By: Moon Springer on 05-05-2023 Platelets (Bld) [#/Vol] 222 10*3/uL 150-450 [facility] RBC morphologyOrdered By: Anastacia Springer on 05-05-2023 RBC morphology finding Nom (Bld) N CHROM NORMAL NORM C&C [facility] Absolute lymphocyte countOrd ered By: Lorraine Springer on 03-17-2023 Lymphocytes Auto (Unsp spec) [#/Vol] 2.43 10*3/uL 0.83-4.51 [facility] Basophil percentageOrdered B y: Lorraine Springer on 03-17-2023 Basophils/100 WBC (Bld) 0.4 % 0-1 [facility] Eosinophils/100 WBC (Bld) 0.2 % 0-5 [facility] Neutrophils (Bld) [#/Vol] 7.8 10*3/uL 2.0-7.7 [facility] Neutrophils/100 WBC (Bld) 71.4 % 47-70 [facility] WBC (Bld) [#/Vol] 10.8 10*3/uL 4.4-11.0 [facility] Blood erythrocytes count (nu mber/volume)Ordered By: Lorraine Springer on 03-17-2023 RBC (Bld) [#/Vol] 4.78 10*6/uL 4.2-5.4 [facility] Blood hemoglobin measurement (mass/volume)Ordered By: Lorraine Springer on 03-17-2023 Hemoglobin (Bld) [Mass/Vol] 14.2 g/dL 12.0-15.0 [facility] Blood lymphocytes/100 leukoc ytesOrdered By: Lorraine Springer on 03-17-2023 Lymphocytes/100 WBC (Bld) 22.4 % 19-41 [facility] Blood monocytes/100 leukocyt esOrdered By: Lorraine Springer on 03-17-2023 Monocytes/100 WBC (Bld) 5.3 % 0-10 [facility] Blood platelet mean volumeOr dered By: Lorraine Springer on 03-17-2023 Platelet mean volume (Bld) [Entitic vol] 9.5 fL 6.2-12.0 [facility] Determination of erythrocyte mean corpuscular volume (MCV)Ordered By: Lorraine Springer on 03-17-2023 MCV (RBC) [Entitic vol] 90.2 fL 81-99 [facility] Hematocrit Auto (Bld) [Volum e fraction]Ordered By: Lorraine Springer on 03-17-2023 Hematocrit (Bld) [Volume fraction] 43.1 % 37-47 [facility] Laboratory - Hematology and Cell countsOrdered By: Lorraine Springer on 03-17-2023 Erythrocyte distribution width (RBC) [Entitic vol] 44.8 fL 35.1-43.9 [facility] Erythrocyte distribution width (RBC) [Ratio] 13.6 % 11.6-14.6 [facility] Immature granulocytes/100 WBC (Bld) 0.300 % 0.0-0.9 [facility] Comment on above: IG% - Immature Granu locytes (promyelocytes, myelocytes and metamyelocytes) > 1% indicates that a LEFT SHIFT is Present. MCH (RBC) [Entitic mass] 29.7 pg 27.0-32.0 [facility] Nucleated RBC/100 WBC (Bld) [Ratio] 0 % 0-5 [facility] MCHC Auto (RBC) [Mass/Vol]Or dered By: Lorraine Springer on 03-17-2023 MCHC (RBC) [Mass/Vol] 32.9 g/dL 32-36 [facility] Platelets bldOrdered By: Moon Springer on 03-17-2023 Platelets (Bld) [#/Vol] 201 10*3/uL 150-450 [facility] Absolute lymphocyte countOrd ered By: Dr. Springer on 02-17-2023 Lymphocytes Auto (Unsp spec) [#/Vol] 2.63 10*3/uL 0.83-4.51 [facility] Basophil percentageOrdered B y: Dr. Springer on 02-17-2023 Basophils/100 WBC (Bld) 0.5 % 0-1 [facility] Eosinophils/100 WBC (Bld) 0.4 % 0-5 [facility] Neutrophils (Bld) [#/Vol] 6.5 10*3/uL 2.0-7.7 [facility] Neutrophils/100 WBC (Bld) 65.4 % 47-70 [facility] WBC (Bld) [#/Vol] 10.0 10*3/uL 4.4-11.0 [facility] Blood erythrocytes count (nu mber/volume)Ordered By: Dr. Springer on 02-17-2023 RBC (Bld) [#/Vol] 5.05 10*6/uL 4.2-5.4 [facility] Blood hemoglobin measurement (mass/volume)Ordered By: Dr. Springer on 02-17-2023 Hemoglobin (Bld) [Mass/Vol] 14.8 g/dL 12.0-15.0 [facility] Blood lymphocytes/100 leukoc ytesOrdered By: Dr. Springer on 02-17-2023 Lymphocytes/100 WBC (Bld) 26.4 % 19-41 [facility] Blood monocytes/100 leukocyt esOrdered By: Dr. Springer on 02-17-2023 Monocytes/100 WBC (Bld) 7.0 % 0-10 [facility] Blood platelet mean volumeOr dered By: Dr. Springer on 02-17-2023 Platelet mean volume (Bld) [Entitic vol] 10.8 fL 6.2-12.0 [facility] Determination of erythrocyte mean corpuscular volume (MCV)Ordered By: Dr. Springer on 02-17-2023 MCV (RBC) [Entitic vol] 90.7 fL 81-99 [facility] Hematocrit Auto (Bld) [Volum e fraction]Ordered By: Dr. Springer on 02-17-2023 Hematocrit (Bld) [Volume fraction] 45.8 % 37-47 [facility] Laboratory - Hematology and Cell countsOrdered By: Dr. Springer on 02-17-2023 Erythrocyte distribution width (RBC) [Entitic vol] 45.1 fL 35.1-43.9 [facility] Erythrocyte distribution width (RBC) [Ratio] 13.6 % 11.6-14.6 [facility] Immature granulocytes/100 WBC (Bld) 0.300 % 0.0-0.9 [facility] Comment on above: IG% - Immature Granu locytes (promyelocytes, myelocytes and metamyelocytes) > 1% indicates that a LEFT SHIFT is Present. MCH (RBC) [Entitic mass] 29.3 pg 27.0-32.0 [facility] Nucleated RBC/100 WBC (Bld) [Ratio] 0 % 0-5 [facility] MCHC Auto (RBC) [Mass/Vol]Or dered By: Dr. Springer on 02-17-2023 MCHC (RBC) [Mass/Vol] 32.3 g/dL 32-36 [facility] Platelets bldOrdered By: Dr. Springer on 02-17-2023 Platelets (Bld) [#/Vol] 192 10*3/uL 150-450 [facility] Absolute lymphocyte countOrd ered By: Dr. Springer on 01-15-2023 Lymphocytes Auto (Unsp spec) [#/Vol] 1.99 10*3/uL 0.83-4.51 [facility] Basophil percentageOrdered B y: Dr. Springer on 01-15-2023 Basophils/100 WBC (Bld) 0.7 % 0-1 [facility] Eosinophils/100 WBC (Bld) 0.4 % 0-5 [facility] Neutrophils (Bld) [#/Vol] 4.6 10*3/uL 2.0-7.7 [facility] Neutrophils/100 WBC (Bld) 64.5 % 47-70 [facility] WBC (Bld) [#/Vol] 7.2 10*3/uL 4.4-11.0 [place] Blood erythrocytes count (nu mber/volume)Ordered By: Dr. Springer on 01-15-2023 RBC (Bld) [#/Vol] 5.12 10*6/uL 4.2-5.4 [facility] Blood hemoglobin measurement (mass/volume)Ordered By: Dr. Springer on 01-15-2023 Hemoglobin (Bld) [Mass/Vol] 14.9 g/dL 12.0-15.0 [facility] Blood lymphocytes/100 leukoc ytesOrdered By: Dr. Springer on 01-15-2023 Lymphocytes/100 WBC (Bld) 27.7 % 19-41 [facility] Blood monocytes/100 leukocyt esOrdered By: Dr. Springer on 01-15-2023 Monocytes/100 WBC (Bld) 6.4 % 0-10 [facility] Blood platelet mean volumeOr dered By: Dr. Springer on 01-15-2023 Platelet mean volume (Bld) [Entitic vol] 12.3 fL 6.2-12.0 [facility] Determination of erythrocyte mean corpuscular volume (MCV)Ordered By: Dr. Springer on 01-15-2023 MCV (RBC) [Entitic vol] 91.6 fL 81-99 [facility] Hematocrit Auto (Bld) [Volum e fraction]Ordered By: Dr. Springer on 01-15-2023 Hematocrit (Bld) [Volume fraction] 46.9 % 37-47 [facility] Laboratory - Hematology and Cell countsOrdered By: Dr. Springer on 01-15-2023 Erythrocyte distribution width (RBC) [Entitic vol] 46.8 fL 35.1-43.9 [facility] Erythrocyte distribution width (RBC) [Ratio] 13.9 % 11.6-14.6 [facility] Immature granulocytes/100 WBC (Bld) 0.300 % 0.0-0.9 [facility] Comment on above: IG% - Immature Granu locytes (promyelocytes, myelocytes and metamyelocytes) > 1% indicates that a LEFT SHIFT is Present. MCH (RBC) [Entitic mass] 29.1 pg 27.0-32.0 [facility] Nucleated RBC/100 WBC (Bld) [Ratio] 0 % 0-5 [facility] MCHC Auto (RBC) [Mass/Vol]Or dered By: Dr. Springer on 01-15-2023 MCHC (RBC) [Mass/Vol] 31.8 g/dL 32-36 [facility] Platelets bldOrdered By: Dr. Springer on 01-15-2023 Platelets (Bld) [#/Vol] 168 10*3/uL 150-450 [facility] Absolute lymphocyte countOrd ered By: Dr. Springer on 12-16-2022 Lymphocytes Auto (Unsp spec) [#/Vol] 2.57 10*3/uL 0.83-4.51 [facility] Basophil percentageOrdered B y: Dr. Springer on 12-16-2022 Basophils/100 WBC (Bld) 0.5 % 0-1 [facility] Eosinophils/100 WBC (Bld) 0.3 % 0-5 [facility] Neutrophils (Bld) [#/Vol] 4.5 10*3/uL 2.0-7.7 [facility] Neutrophils/100 WBC (Bld) 57.5 % 47-70 [facility] WBC (Bld) [#/Vol] 7.8 10*3/uL 4.4-11.0 [place] Blood erythrocytes count (nu mber/volume)Ordered By: Dr. Springer on 12-16-2022 RBC (Bld) [#/Vol] 4.75 10*6/uL 4.2-5.4 [facility] Blood hemoglobin measurement (mass/volume)Ordered By: Dr. Springer on 12-16-2022 Hemoglobin (Bld) [Mass/Vol] 13.9 g/dL 12.0-15.0 [facility] Blood lymphocytes/100 leukoc ytesOrdered By: Dr. Springer on 12-16-2022 Lymphocytes/100 WBC (Bld) 33.2 % 19-41 [facility] Blood monocytes/100 leukocyt esOrdered By: Dr. Springer on 12-16-2022 Monocytes/100 WBC (Bld) 8.1 % 0-10 [facility] Blood platelet mean volumeOr dered By: Dr. Springer on 12-16-2022 Platelet mean volume (Bld) [Entitic vol] 11.0 fL 6.2-12.0 [facility] Determination of erythrocyte mean corpuscular volume (MCV)Ordered By: Dr. Springer on 12-16-2022 MCV (RBC) [Entitic vol] 92.8 fL 81-99 [facility] Hematocrit Auto (Bld) [Volum e fraction]Ordered By: Dr. Springer on 12-16-2022 Hematocrit (Bld) [Volume fraction] 44.1 % 37-47 [facility] Laboratory - Hematology and Cell countsOrdered By: Dr. Springer on 12-16-2022 Erythrocyte distribution width (RBC) [Entitic vol] 47.1 fL 35.1-43.9 [facility] Erythrocyte distribution width (RBC) [Ratio] 13.9 % 11.6-14.6 [facility] Immature granulocytes/100 WBC (Bld) 0.400 % 0.0-0.9 [facility] Comment on above: IG% - Immature Granu locytes (promyelocytes, myelocytes and metamyelocytes) > 1% indicates that a LEFT SHIFT is Present. MCH (RBC) [Entitic mass] 29.3 pg 27.0-32.0 [facility] Nucleated RBC/100 WBC (Bld) [Ratio] 0 % 0-5 [facility] MCHC Auto (RBC) [Mass/Vol]Or dered By: Dr. Springer on 12-16-2022 MCHC (RBC) [Mass/Vol] 31.5 g/dL 32-36 [facility] Platelets bldOrdered By: Dr. Springer on 12-16-2022 Platelets (Bld) [#/Vol] 193 10*3/uL 150-450 [facility] Absolute lymphocyte countOrd ered By: Dr. Springer on 11-19-2022 Lymphocytes Auto (Unsp spec) [#/Vol] 2.45 10*3/uL 0.83-4.51 [facility] Basophil percentageOrdered B y: Dr. Springer on 11-19-2022 Basophils/100 WBC (Bld) 0.6 % 0-1 [facility] Eosinophils/100 WBC (Bld) 0.2 % 0-5 [facility] Neutrophils (Bld) [#/Vol] 5.0 10*3/uL 2.0-7.7 [facility] Neutrophils/100 WBC (Bld) 61.5 % 47-70 [facility] WBC (Bld) [#/Vol] 8.2 10*3/uL 4.4-11.0 [place] Blood erythrocytes count (nu mber/volume)Ordered By: Dr. Springer on 11-19-2022 RBC (Bld) [#/Vol] 4.95 10*6/uL 4.2-5.4 [facility] Blood hemoglobin measurement (mass/volume)Ordered By: Dr. Springer on 11-19-2022 Hemoglobin (Bld) [Mass/Vol] 14.4 g/dL 12.0-15.0 [facility] Blood lymphocytes/100 leukoc ytesOrdered By: Dr. Springer on 11-19-2022 Lymphocytes/100 WBC (Bld) 30.1 % 19-41 [facility] Blood monocytes/100 leukocyt esOrdered By: Dr. Springer on 11-19-2022 Monocytes/100 WBC (Bld) 7.4 % 0-10 [facility] Blood platelet mean volumeOr dered By: Dr. Springer on 11-19-2022 Platelet mean volume (Bld) [Entitic vol] 9.8 fL 6.2-12.0 [facility] Determination of erythrocyte mean corpuscular volume (MCV)Ordered By: Dr. Springer on 11-19-2022 MCV (RBC) [Entitic vol] 91.9 fL 81-99 [facility] Hematocrit Auto (Bld) [Volum e fraction]Ordered By: Dr. Springer on 11-19-2022 Hematocrit (Bld) [Volume fraction] 45.5 % 37-47 [facility] Laboratory - Hematology and Cell countsOrdered By: Dr. Springer on 11-19-2022 Erythrocyte distribution width (RBC) [Entitic vol] 45.9 fL 35.1-43.9 [facility] Erythrocyte distribution width (RBC) [Ratio] 13.7 % 11.6-14.6 [facility] Immature granulocytes/100 WBC (Bld) 0.200 % 0.0-0.9 [facility] Comment on above: IG% - Immature Granu locytes (promyelocytes, myelocytes and metamyelocytes) > 1% indicates that a LEFT SHIFT is Present. MCH (RBC) [Entitic mass] 29.1 pg 27.0-32.0 [facility] Nucleated RBC/100 WBC (Bld) [Ratio] 0 % 0-5 [facility] MCHC Auto (RBC) [Mass/Vol]Or dered By: Dr. Springer on 11-19-2022 MCHC (RBC) [Mass/Vol] 31.6 g/dL 32-36 [facility] Platelets bldOrdered By: Dr. Springer on 11-19-2022 Platelets (Bld) [#/Vol] 198 10*3/uL 150-450 [facility] Absolute lymphocyte countOrd ered By: Dr. Springer on 10-17-2022 Lymphocytes Auto (Unsp spec) [#/Vol] 2.70 10*3/uL 0.83-4.51 [facility] Basophil percentageOrdered B y: Dr. Springer on 10-17-2022 Basophils/100 WBC (Bld) 0.7 % 0-1 [facility] Eosinophils/100 WBC (Bld) 0.2 % 0-5 [facility] Neutrophils (Bld) [#/Vol] 5.4 10*3/uL 2.0-7.7 [facility] Neutrophils/100 WBC (Bld) 60.7 % 47-70 [facility] WBC (Bld) [#/Vol] 8.8 10*3/uL 4.4-11.0 [place] Blood erythrocytes count (nu mber/volume)Ordered By: Dr. Springer on 10-17-2022 RBC (Bld) [#/Vol] 5.13 10*6/uL 4.2-5.4 [facility] Blood hemoglobin measurement (mass/volume)Ordered By: Dr. Springer on 10-17-2022 Hemoglobin (Bld) [Mass/Vol] 14.9 g/dL 12.0-15.0 [facility] Blood lymphocytes/100 leukoc ytesOrdered By: Dr. Springer on 10-17-2022 Lymphocytes/100 WBC (Bld) 30.6 % 19-41 [facility] Blood monocytes/100 leukocyt esOrdered By: Dr. Springer on 10-17-2022 Monocytes/100 WBC (Bld) 7.5 % 0-10 [facility] Blood platelet mean volumeOr dered By: Dr. Springer on 10-17-2022 Platelet mean volume (Bld) [Entitic vol] 11.2 fL 6.2-12.0 [facility] Determination of erythrocyte mean corpuscular volume (MCV)Ordered By: Dr. Springer on 10-17-2022 MCV (RBC) [Entitic vol] 90.3 fL 81-99 [facility] Hematocrit Auto (Bld) [Volum e fraction]Ordered By: Dr. Springer on 10-17-2022 Hematocrit (Bld) [Volume fraction] 46.3 % 37-47 [facility] Laboratory - Hematology and Cell countsOrdered By: Dr. Springer on 10-17-2022 Erythrocyte distribution width (RBC) [Entitic vol] 43.7 fL 35.1-43.9 [facility] Erythrocyte distribution width (RBC) [Ratio] 13.3 % 11.6-14.6 [facility] Immature granulocytes/100 WBC (Bld) 0.300 % 0.0-0.9 [facility] Comment on above: IG% - Immature Granu locytes (promyelocytes, myelocytes and metamyelocytes) > 1% indicates that a LEFT SHIFT is Present. MCH (RBC) [Entitic mass] 29.0 pg 27.0-32.0 [facility] Nucleated RBC/100 WBC (Bld) [Ratio] 0 % 0-5 [facility] MCHC Auto (RBC) [Mass/Vol]Or dered By: Dr. Springer on 10-17-2022 MCHC (RBC) [Mass/Vol] 32.2 g/dL 32-36 [facility] Platelets bldOrdered By: Dr. Springer on 10-17-2022 Platelets (Bld) [#/Vol] 199 10*3/uL 150-450 [facility] Absolute lymphocyte countOrd ered By: Dr. Springer on 09-19-2022 Lymphocytes Auto (Unsp spec) [#/Vol] 2.26 10*3/uL 0.83-4.51 [facility] Basophil percentageOrdered B y: Dr. Springer on 09-19-2022 Basophils/100 WBC (Bld) 0.6 % 0-1 [facility] Eosinophils/100 WBC (Bld) 0.3 % 0-5 [facility] Neutrophils (Bld) [#/Vol] 3.7 10*3/uL 2.0-7.7 [facility] Neutrophils/100 WBC (Bld) 55.2 % 47-70 [facility] WBC (Bld) [#/Vol] 6.7 10*3/uL 4.4-11.0 [place] Blood erythrocytes count (nu mber/volume)Ordered By: Dr. Springer on 09-19-2022 RBC (Bld) [#/Vol] 4.98 10*6/uL 4.2-5.4 [facility] Blood hemoglobin measurement (mass/volume)Ordered By: Dr. Springer on 09-19-2022 Hemoglobin (Bld) [Mass/Vol] 14.4 g/dL 12.0-15.0 [facility] Blood lymphocytes/100 leukoc ytesOrdered By: Dr. Springer on 09-19-2022 Lymphocytes/100 WBC (Bld) 33.9 % 19-41 [facility] Blood manual differential co mment interpretation (narrative result)Ordered By: Dr. Springer on 09-19-2022 Manual differential comment [place] (Bld) [Interp] SCANNED [facility] Blood monocytes/100 leukocyt esOrdered By: Dr. Springer on 09-19-2022 Monocytes/100 WBC (Bld) 9.7 % 0-10 [facility] Blood platelet mean volumeOr dered By: Dr. Springer on 09-19-2022 Platelet mean volume (Bld) [Entitic vol] 10.2 fL 6.2-12.0 [facility] Determination of erythrocyte mean corpuscular volume (MCV)Ordered By: Dr. Springer on 09-19-2022 MCV (RBC) [Entitic vol] 91.8 fL 81-99 [facility] Hematocrit Auto (Bld) [Volum e fraction]Ordered By: Dr. Springer on 09-19-2022 Hematocrit (Bld) [Volume fraction] 45.7 % 37-47 [facility] Laboratory - Hematology and Cell countsOrdered By: Dr. Springer on 09-19-2022 Erythrocyte distribution width (RBC) [Entitic vol] 44.5 fL 35.1-43.9 [facility] Erythrocyte distribution width (RBC) [Ratio] 13.2 % 11.6-14.6 [facility] Immature granulocytes/100 WBC (Bld) 0.300 % 0.0-0.9 [facility] Comment on above: IG% - Immature Granu locytes (promyelocytes, myelocytes and metamyelocytes) > 1% indicates that a LEFT SHIFT is Present. MCH (RBC) [Entitic mass] 28.9 pg 27.0-32.0 [facility] Nucleated RBC/100 WBC (Bld) [Ratio] 0 % 0-5 [facility] MCHC Auto (RBC) [Mass/Vol]Or dered By: Dr. Springer on 09-19-2022 MCHC (RBC) [Mass/Vol] 31.5 g/dL 32-36 [facility] No Panel InformationOrdered By: Dr. Springer on 09-19-2022 Atypical Lymphocytes 1+ % [facility] Platelets bldOrdered By: Dr. Springer on 09-19-2022 Platelets (Bld) [#/Vol] 198 10*3/uL 150-450 [facility] Absolute lymphocyte countOrd ered By: Dr. Springer on 08-15-2022 Lymphocytes Auto (Unsp spec) [#/Vol] 2.32 10*3/uL 0.83-4.51 [facility] Basophil percentageOrdered B y: Dr. Springer on 08-15-2022 Basophils/100 WBC (Bld) 0.6 % 0-1 [facility] Eosinophils/100 WBC (Bld) 0.3 % 0-5 [facility] Neutrophils (Bld) [#/Vol] 3.8 10*3/uL 2.0-7.7 [facility] Neutrophils/100 WBC (Bld) 57.5 % 47-70 [facility] WBC (Bld) [#/Vol] 6.7 10*3/uL 4.4-11.0 [place] Blood erythrocytes count (nu mber/volume)Ordered By: Dr. Springer on 08-15-2022 RBC (Bld) [#/Vol] 4.65 10*6/uL 4.2-5.4 [facility] Blood hemoglobin measurement (mass/volume)Ordered By: Dr. Springer on 08-15-2022 Hemoglobin (Bld) [Mass/Vol] 14.2 g/dL 12.0-15.0 [facility] Blood lymphocytes/100 leukoc ytesOrdered By: Dr. Springer on 08-15-2022 Lymphocytes/100 WBC (Bld) 34.9 % 19-41 [facility] Blood monocytes/100 leukocyt esOrdered By: Dr. Springer on 08-15-2022 Monocytes/100 WBC (Bld) 6.5 % 0-10 [facility] Blood platelet mean volumeOr dered By: Dr. Springer on 08-15-2022 Platelet mean volume (Bld) [Entitic vol] 10.1 fL 6.2-12.0 [facility] Blood platelet morphology de termination (nominal result)Ordered By: Dr. Springer on 08-15-2022 Platelet morphology finding Nom (Bld) LARGE [facility] Determination of erythrocyte mean corpuscular volume (MCV)Ordered By: Dr. Springer on 08-15-2022 MCV (RBC) [Entitic vol] 92.0 fL 81-99 [facility] Hematocrit Auto (Bld) [Volum e fraction]Ordered By: Dr. Springer on 08-15-2022 Hematocrit (Bld) [Volume fraction] 42.8 % 37-47 [facility] Laboratory - Hematology and Cell countsOrdered By: Dr. Springer on 08-15-2022 Erythrocyte distribution width (RBC) [Entitic vol] 45.7 fL 35.1-43.9 [facility] Erythrocyte distribution width (RBC) [Ratio] 13.6 % 11.6-14.6 [facility] Immature granulocytes/100 WBC (Bld) 0.200 % 0.0-0.9 [facility] Comment on above: IG% - Immature Granu locytes (promyelocytes, myelocytes and metamyelocytes) > 1% indicates that a LEFT SHIFT is Present. MCH (RBC) [Entitic mass] 30.5 pg 27.0-32.0 [facility] Nucleated RBC/100 WBC (Bld) [Ratio] 0 % 0-5 [facility] MCHC Auto (RBC) [Mass/Vol]Or dered By: Dr. Springer on 08-15-2022 MCHC (RBC) [Mass/Vol] 33.2 g/dL 32-36 [facility] No Panel InformationOrdered By: Dr. Springer on 08-15-2022 Reactive Lymphocytes RARE [facility] Platelets bldOrdered By: Dr. Springer on 08-15-2022 Platelets (Bld) [#/Vol] 185 10*3/uL 150-450 [facility] Absolute lymphocyte countOrd ered By: Dr. Springer on 07-23-2022 Lymphocytes Auto (Unsp spec) [#/Vol] 2.25 10*3/uL 0.83-4.51 [facility] Basophil percentageOrdered B y: Dr. Springer on 07-23-2022 Basophils/100 WBC (Bld) 0.5 % 0-1 [facility] Eosinophils/100 WBC (Bld) 0.1 % 0-5 [facility] Neutrophils (Bld) [#/Vol] 4.6 10*3/uL 2.0-7.7 [facility] Neutrophils/100 WBC (Bld) 62.0 % 47-70 [facility] WBC (Bld) [#/Vol] 7.4 10*3/uL 4.4-11.0 [place] Blood erythrocytes count (nu mber/volume)Ordered By: Dr. Springer on 07-23-2022 RBC (Bld) [#/Vol] 4.63 10*6/uL 4.2-5.4 [facility] Blood hemoglobin measurement (mass/volume)Ordered By: Dr. Springer on 07-23-2022 Hemoglobin (Bld) [Mass/Vol] 13.8 g/dL 12.0-15.0 [facility] Blood lymphocytes/100 leukoc ytesOrdered By: Dr. Springer on 07-23-2022 Lymphocytes/100 WBC (Bld) 30.5 % 19-41 [facility] Blood monocytes/100 leukocyt esOrdered By: Dr. Springer on 07-23-2022 Monocytes/100 WBC (Bld) 6.6 % 0-10 [facility] Blood platelet adequacy dete ction by light microscopyOrdered By: Dr. Springer on 07-23-2022 Platelets LM Ql (Bld) ADEQUATE ADEQ [facility] Blood platelet mean volumeOr dered By: Dr. Springer on 07-23-2022 Platelet mean volume (Bld) [Entitic vol] 10.0 fL 6.2-12.0 [facility] Determination of erythrocyte mean corpuscular volume (MCV)Ordered By: Dr. Springer on 07-23-2022 MCV (RBC) [Entitic vol] 92.7 fL 81-99 [facility] Hematocrit Auto (Bld) [Volum e fraction]Ordered By: Dr. Springer on 07-23-2022 Hematocrit (Bld) [Volume fraction] 42.9 % 37-47 [facility] Laboratory - Hematology and Cell countsOrdered By: Dr. Springer on 07-23-2022 Erythrocyte distribution width (RBC) [Entitic vol] 47.2 fL 35.1-43.9 [facility] Erythrocyte distribution width (RBC) [Ratio] 13.9 % 11.6-14.6 [facility] Immature granulocytes/100 WBC (Bld) 0.300 % 0.0-0.9 [facility] Comment on above: IG% - Immature Granu locytes (promyelocytes, myelocytes and metamyelocytes) > 1% indicates that a LEFT SHIFT is Present. MCH (RBC) [Entitic mass] 29.8 pg 27.0-32.0 [facility] Nucleated RBC/100 WBC (Bld) [Ratio] 0 % 0-5 [facility] MCHC Auto (RBC) [Mass/Vol]Or dered By: Dr. Springer on 07-23-2022 MCHC (RBC) [Mass/Vol] 32.2 g/dL 32-36 [facility] Platelets bldOrdered By: Dr. Springer on 07-23-2022 Platelets (Bld) [#/Vol] 210 10*3/uL 150-450 [facility] RBC morphologyOrdered By: Dr Meghan Springer on 07-23-2022 RBC morphology finding Nom (Bld) NORM C+C NORMAL NORM C&C [facility] Absolute lymphocyte counton 06-19-2022 Lymphocytes Auto (Unsp spec) [#/Vol] 2.95 10*3/uL 0.83-4.51 [facility] Work Phone: Basophil percentageon 2021 Basophils/100 WBC (Bld) 0.3 % 0-1 [facility] Work Phone: Eosinophils/100 WBC (Bld) 0.2 % 0-5 [facility] Work Phone: Neutrophils (Bld) [#/Vol] 5.4 10*3/uL 2.0-7.7 [facility] Work Phone: Neutrophils/100 WBC (Bld) 59.6 % 47-70 [facility] Work Phone: WBC (Bld) [#/Vol] 9.1 10*3/uL 4.4-11.0 [facility] Work [facility]: Blood erythrocytes count (nu mber/volume)on 06-19-2022 RBC (Bld) [#/Vol] 4.69 10*6/uL 4.2-5.4 [facility] Work Phone: Blood hemoglobin measurement (mass/volume)on 06-19-2022 Hemoglobin (Bld) [Mass/Vol] 13.8 g/dL 12.0-15.0 [facility] Work Phone: Blood lymphocytes/100 leukoc yteson 06-19-2022 Lymphocytes/100 WBC (Bld) 32.5 % 19-41 [facility] Work Phone: Blood monocytes/100 leukocyt eson 06-19-2022 Monocytes/100 WBC (Bld) 7.1 % 0-10 [facility] Work Phone: Blood platelet adequacy dete ction by light microscopyon 06-19-2022 Platelets LM Ql (Bld) [facility]Q [facility]: Blood platelet mean volumeon 06-19-2022 Platelet mean volume (Bld) [Entitic vol] 10.0 fL 6.2-12.0 [facility] Work Phone: Determination of erythrocyte mean corpuscular volume (MCV)on 06-19-2022 MCV (RBC) [Entitic vol] 90.0 fL 81-99 [facility] Work Phone: Hematocrit Auto (Bld) [Volum e fraction]on 06-19-2022 Hematocrit (Bld) [Volume fraction] 42.2 % 37-47 [facility] Work Phone: Laboratory - Hematology and Cell countson 06-19-2022 Erythrocyte distribution width (RBC) [Entitic vol] 45.1 fL 35.1-43.9 [facility] Work Phone: Erythrocyte distribution width (RBC) [Ratio] 13.8 % 11.6-14.6 [facility] Work Phone: Immature granulocytes/100 WBC (Bld) 0.300 % 0.0-0.9 [facility] Work Phone: Comment on above: IG% - Immature Granu locytes (promyelocytes, myelocytes and metamyelocytes) > 1% indicates that a LEFT SHIFT is Present. MCH (RBC) [Entitic mass] 29.4 pg 27.0-32.0 [facility] Work Phone: Nucleated RBC/100 WBC (Bld) [Ratio] 0 % 0-5 [facility] Work Phone: MCHC Auto (RBC) [Mass/Vol]on 06-19-2022 MCHC (RBC) [Mass/Vol] 32.7 g/dL 32-36 [facility] Work Phone: No Panel Informationon 06-19 Atypical Lymphocytes 1+ % [facility] Work Phone: Platelets bldon 06-19-2022 Platelets (Bld) [#/Vol] 209 10*3/uL 150-450 [facility] Work Phone: RBC morphologyon 06-19-2022 RBC morphology finding Nom (Bld) NORM C+C NORMAL NORM C&C [facility] Work Phone: Absolute lymphocyte counton 06-05-2022 Lymphocytes Auto (Unsp spec) [#/Vol] 2.74 10*3/uL 0.83-4.51 [facility] Work Phone: Basophil percentageon 2021 Basophils/100 WBC (Bld) 0.5 % 0-1 [facility] Work Phone: [phone] Bilirubin [Mass/Vol] 0.20 mg/dL 0.20-1.00 [facility] Work Phone: Comment on above: For patients on eltr ombopag therapy, use of [employer] [place] TBIL is not recommended. Chloride [Moles/Vol] 106 mmol/L 98-107 [facility] Work Phone: Eosinophils/100 WBC (Bld) 0.1 % 0-5 [facility] Work Phone: [phone] Glucose [Mass/Vol] 206 mg/dL 74-106 [place] Work Phone: Comment on above: Glucose result great er than or equal to 200 mg/dLsuggests DIABETES MELLITUS per A.D.A. criteria. Neutrophils (Bld) [#/Vol] 5.4 10*3/uL 2.0-7.7 [facility] Work Phone: Neutrophils/100 WBC (Bld) 61.0 % 47-70 [facility] Work Phone: Potassium [Moles/Vol] 4.3 mmol/L 3.5-5.1 [facility] Work Phone: Protein [Mass/Vol] 7.6 g/dL 6.4-8.2 [place] Work Phone: Sodium [Moles/Vol] 139 mmol/L 136-145 [place] Work Phone: WBC (Bld) [#/Vol] 8.9 10*3/uL 4.4-11.0 [place] Work Phone: Basophil percentage 0 SEEN /hpf 0-[facility] Work [facility]: Bilirubin Test strip Ql (U)o n 06-05-2022 Bilirubin Ql (U) Negative Negative [facility] Work Phone: Blood erythrocytes count (nu mber/volume)on 06-05-2022 RBC (Bld) [#/Vol] 4.70 10*6/uL 4.2-5.4 [facility] Work Phone: Blood hemoglobin measurement (mass/volume)on 06-05-2022 Hemoglobin (Bld) [Mass/Vol] 14.1 g/dL 12.0-15.0 [facility] Work Phone: Blood lymphocytes/100 leukoc yteson 06-05-2022 Lymphocytes/100 WBC (Bld) 30.9 % 19-41 [facility] Work Phone: Blood monocytes/100 leukocyt eson 06-05-2022 Monocytes/100 WBC (Bld) 7.0 % 0-10 [facility] Work Phone: Blood platelet mean volumeon 06-05-2022 Platelet mean volume (Bld) [Entitic vol] 9.7 fL 6.2-12.0 [facility] Work Phone: Determination of erythrocyte mean corpuscular volume (MCV)on 06-05-2022 MCV (RBC) [Entitic vol] 89.6 fL 81-99 [facility] Work Phone: Hematocrit Auto (Bld) [Volum e fraction]on 06-05-2022 Hematocrit (Bld) [Volume fraction] 42.1 % 37-47 [facility] Work Phone: Ketones Test strip Ql (U)on 06-05-2022 Ketones Ql (U) Negative Negative [facility] Work Phone: Laboratory - Chemistry and C hemistry - challengeon 06-05-2022 ALP [Catalytic activity/Vol] 162 U/L 45-117 [facility] Work Phone: ALT [Catalytic activity/Vol] 68 U/L 13-56 [facility] Work Phone: CO2 [Moles/Vol] 25.0 mmol/L 21.0-32.0 [facility] Work Phone: Globulin (S) [Mass/Vol] 3.9 g/dL 2.2-4.2 [facility] Work Phone: Urea nitrogen/Creatinine [Mass ratio] 22.3 mg/mg 10-20 [facility] [facility] Work Phone: Laboratory - Drug toxicology on 06-05-2022 Amphetamines Ql (U) Negative <1000 ng/mL [facility] Work Phone: Benzodiazepines Ql (U) Negative < 200 ng/mL [facility] Work Phone: Cannabinoids Screen Ql (U) Negative < 50 ng/mL [facility] Work Phone: Cocaine Ql (U) Negative < 300 ng/mL [facility] Work Phone: Opiates Ql (U) Negative < 300 ng/mL [facility] Work Phone: Laboratory - Hematology and Cell countson 06-05-2022 Erythrocyte distribution width (RBC) [Entitic vol] 46.8 fL 35.1-43.9 [facility] Work Phone: Erythrocyte distribution width (RBC) [Ratio] 14.2 % 11.6-14.6 [facility] Work Phone: Immature granulocytes/100 WBC (Bld) 0.500 % 0.0-0.9 [facility] Work Phone: Comment on above: IG% - Immature Granu locytes (promyelocytes, myelocytes and metamyelocytes) > 1% indicates that a LEFT SHIFT is Present. MCH (RBC) [Entitic mass] 30.0 pg 27.0-32.0 [facility] Work Phone: Nucleated RBC/100 WBC (Bld) [Ratio] 0 % 0-5 [facility] Work Phone: MCHC Auto (RBC) [Mass/Vol]on 06-05-2022 MCHC (RBC) [Mass/Vol] 33.5 g/dL 32-36 [facility] Work Phone: Mucus LM Ql (Urine sed)on Mucus Ql (Urine sed) 0 SEEN /hpf [facility] Work Phone: Nitrite Test strip Ql (U)on 06-05-2022 Nitrite Ql (U) Negative Negative [facility] Work Phone: No Panel Informationon 06-05 Estimated Creatinine Clearance Calc 64.27 ml/min [facility] Work Phone: Estimated GFR (MDRD) Amer 107 mL/min >60 [facility] Work Phone: Comment on above: GFR Calc Estimated GFR (MDRD) Non-Af Amer 89 mL/min >60 [facility] Work Phone: Comment on above: Non- GFR Calc Ethyl Alcohol Level < 3.0 mg/dL [facility] Work Phone: Comment on above: The serum:whole bloo d ethanol ratio is approximately 1.14and varies slightly with hematocrit. Medical Alcohol reference interval and critical value innon-tolerant individuals; 50 - 100 Impairment 100 Intoxication 100 - 250 Severe Poisoning 250 - 400 Deep/possible fatal coma Troponin I High Sensitivity < 3 pg/mL 3.0-54.0 [facility] Work Phone: Comment on above: Please Note: New Janeth t Units and Gender Specific Reference Ranges. For more information see Policy Stat Procedure [place] High Sensitivity Troponin (TNIH) and attachments. MDMA (Ecstasy) Screen Negative < 500 ng/mL [facility] Work Phone: Urine Barbiturates Screen Negative < 200 ng/mL [facility] Work Phone: Urine Drug Screen Comment [facility] Work Phone: Comment on above: [...] Methadone Screen Negative < 300 ng/mL [facility] Work Phone: Platelets bldon 06-05-2022 Platelets (Bld) [#/Vol] 220 10*3/uL 150-450 [facility] Work Phone: Protein Test strip Ql (U)on 06-05-2022 Protein Ql (U) Negative Negative [facility] Work Phone: Serum or plasma albumin lawrence urement (mass/volume)on 06-05-2022 Albumin [Mass/Vol] 3.7 g/dL 3.2-5.0 [place] Work Phone: Serum or plasma albumin/glob ulin mass ratioon 06-05-2022 Albumin/Globulin [Mass ratio] 0.9 {ratio} 0.9-2.4 [facility] Work Phone: Serum or plasma calcium lawrence urement (mass/volume)on 06-05-2022 Calcium [Mass/Vol] 9.2 mg/dL 8.5-10.1 [place] Work Phone: Serum or plasma creatinine m easurement (mass/volume)on 06-05-2022 Creatinine [Mass/Vol] 0.72 mg/dL 0.55-1.02 [facility] Work Phone: Comment on above: The validity of the calculated GFR & GFRAA in patients over 70 years has not been determined. Clinical correlation is essential. Serum or plasma urea nitroge n measurement (mass/volume)on 06-05-2022 Urea nitrogen [Mass/Vol] 16 mg/dL 7-18 [facility] Work Phone: Squamous epithelial cells de tection in urine sediment by light microscopyon 06-05-2022 Epithelial cells.squamous LM Ql (Urine sed) 0 SEEN /hpf 5-10 [facility] Work Phone: Thin prep Papanicolaou smear with manual screeningon 06-05-2022 Thin prep Papanicolaou smear with manual screening 52 U/L 15-37 [facility] Work Phone: Thin prep Papanicolaou smear with manual screening 8 5-15 [facility] Work Phone: Urine blood detectionon 05-14 RBC Ql (U) Negative Negative [facility] Work Phone: RBC Ql (U) 0 SEEN /hpf 0-5 [facility] Work Phone: Urine clarityon 06-05-2022 Clarity (U) Clear Clear [facility] Work Phone: Urine color determinationon 06-05-2022 Color (U) Straw Yellow [facility] Work Phone: Urine glucose detectionon Glucose Ql (U) 1000 mg/dl Normal [facility] Work Phone: Urine leukocyte esterase det ection by dipstickon 06-05-2022 Leukocyte esterase Test strip Ql (U) Negative Negative [facility] Work Phone: Urine pHon 06-05-2022 pH (U) 6.0 [pH] 5.0 - 8.0 [facility] Work Phone: Urine phencyclidine (PCP) de tectionon 06-05-2022 Phencyclidine Ql (U) Negative < 25 ng/mL [facility] Work Phone: Urine sediment bacteria coun t by microscopy (number/high power field)on 06-05-2022 Bacteria LM.HPF (Urine sed) [#/Area] 0 /[HPF] None Seen [facility] Work Phone: Urine specific gravity measu rementon 06-05-2022 Specific gravity (U) [Rel density] 1.010 1.002-1.030 [facility] Work Phone: Urobilinogen Auto test strip Ql (U)on 06-05-2022 Urobilinogen Ql (U) Normal mg/dl Normal [facility] Work Phone: Absolute lymphocyte counton 05-17-2022 Lymphocytes Auto (Unsp spec) [#/Vol] 2.96 10*3/uL 0.83-4.51 [facility] Work Phone: Basophil percentageon 2021 Basophils/100 WBC (Bld) 0.5 % 0-1 [facility] Work Phone: Eosinophils/100 WBC (Bld) 0.0 % 0-5 [facility] Work Phone: Neutrophils (Bld) [#/Vol] 5.6 10*3/uL 2.0-7.7 [facility] Work Phone: [phone] Neutrophils/100 WBC (Bld) 59.7 % 47-70 [facility] Work Phone: [phone] WBC (Bld) [#/Vol] 9.4 10*3/uL 4.4-11.0 [place] Work Phone: [phone] Blood erythrocytes count (nu mber/volume)on 05-17-2022 RBC (Bld) [#/Vol] 4.82 10*6/uL 4.2-5.4 [facility] Work Phone: [phone] Blood hemoglobin measurement (mass/volume)on 05-17-2022 Hemoglobin (Bld) [Mass/Vol] 14.1 g/dL 12.0-15.0 [facility] Work Phone: Blood lymphocytes/100 leukoc yteson 05-17-2022 Lymphocytes/100 WBC (Bld) 31.5 % 19-41 [facility] Work Phone: Blood monocytes/100 leukocyt eson 05-17-2022 Monocytes/100 WBC (Bld) 7.8 % 0-10 [facility] Work Phone: Blood platelet mean volumeon 05-17-2022 Platelet mean volume (Bld) [Entitic vol] 10.6 fL 6.2-12.0 [facility] Work Phone: Determination of erythrocyte mean corpuscular volume (MCV)on 05-17-2022 MCV (RBC) [Entitic vol] 90.7 fL 81-99 [facility] Work Phone: Hematocrit Auto (Bld) [Volum e fraction]on 05-17-2022 Hematocrit (Bld) [Volume fraction] 43.7 % 37-47 [facility] Work Phone: Laboratory - Hematology and Cell countson 05-17-2022 Erythrocyte distribution width (RBC) [Entitic vol] 45.5 fL 35.1-43.9 [facility] Work Phone: Erythrocyte distribution width (RBC) [Ratio] 13.9 % 11.6-14.6 [facility] Work Phone: Immature granulocytes/100 WBC (Bld) 0.500 % 0.0-0.9 [facility] Work Phone: Comment on above: IG% - Immature Granu locytes (promyelocytes, myelocytes and metamyelocytes) > 1% indicates that a LEFT SHIFT is Present. MCH (RBC) [Entitic mass] 29.3 pg 27.0-32.0 [facility] Work Phone: Nucleated RBC/100 WBC (Bld) [Ratio] 0 % 0-5 [facility] Work Phone: MCHC Auto (RBC) [Mass/Vol]on 05-17-2022 MCHC (RBC) [Mass/Vol] 32.3 g/dL 32-36 [facility] Work Phone: No Panel Informationon 05-17 Reactive Lymphocytes RARE [facility] Work Phone: Platelets bldon 05-17-2022 Platelets (Bld) [#/Vol] 189 10*3/uL 150-450 [facility] Work Phone: Absolute lymphocyte counton 04-17-2022 Lymphocytes Auto (Unsp spec) [#/Vol] 2.37 10*3/uL 0.83-4.51 [facility] Work Phone: Basophil percentageon 2021 Basophils/100 WBC (Bld) 0.3 % 0-1 [facility] Work Phone: Eosinophils/100 WBC (Bld) 0.0 % 0-5 [facility] Work Phone: Neutrophils (Bld) [#/Vol] 7.5 10*3/uL 2.0-7.7 [facility] Work Phone: Neutrophils/100 WBC (Bld) 71.4 % 47-70 [facility] Work Phone: WBC (Bld) [#/Vol] 10.5 10*3/uL 4.4-11.0 [facility] Work Phone: Blood erythrocytes count (nu mber/volume)on 04-17-2022 RBC (Bld) [#/Vol] 5.00 10*6/uL 4.2-5.4 [facility] Work Phone: Blood hemoglobin measurement (mass/volume)on 04-17-2022 Hemoglobin (Bld) [Mass/Vol] 14.5 g/dL 12.0-15.0 [facility] Work Phone: [phone] Blood lymphocytes/100 leukoc yteson 04-17-2022 Lymphocytes/100 WBC (Bld) 22.6 % 19-41 [facility] Work Phone: Blood monocytes/100 leukocyt eson 04-17-2022 Monocytes/100 WBC (Bld) 5.3 % 0-10 [facility] Work Phone: Blood platelet mean volumeon 04-17-2022 Platelet mean volume (Bld) [Entitic vol] 11.6 fL 6.2-12.0 [facility] Work Phone: Determination of erythrocyte mean corpuscular volume (MCV)on 04-17-2022 MCV (RBC) [Entitic vol] 88.4 fL 81-99 [facility] Work Phone: Hematocrit Auto (Bld) [Volum e fraction]on 04-17-2022 Hematocrit (Bld) [Volume fraction] 44.2 % 37-47 [facility] Work Phone: Laboratory - Hematology and Cell countson 04-17-2022 Erythrocyte distribution width (RBC) [Entitic vol] 43.8 fL 35.1-43.9 [facility] Work Phone: Erythrocyte distribution width (RBC) [Ratio] 13.5 % 11.6-14.6 [facility] Work Phone: Immature granulocytes/100 WBC (Bld) 0.400 % 0.0-0.9 [facility] Work Phone: Comment on above: IG% - Immature Granu locytes (promyelocytes, myelocytes and metamyelocytes) > 1% indicates that a LEFT SHIFT is Present. MCH (RBC) [Entitic mass] 29.0 pg 27.0-32.0 [facility] Work Phone: Nucleated RBC/100 WBC (Bld) [Ratio] 0 % 0-5 [facility] Work Phone: MCHC Auto (RBC) [Mass/Vol]on 04-17-2022 MCHC (RBC) [Mass/Vol] 32.8 g/dL 32-36 [facility] Work Phone: Platelets bldon 04-17-2022 Platelets (Bld) [#/Vol] 166 10*3/uL 150-450 [facility] Work Phone: Glucose Glucometer (BldC) [M ass/Vol]on 04-10-2022 Glucose [Mass/Vol] 152 mg/dL 74-106 [place] Work Phone: Comment on above: MANAGEMENT OF PATIEN T CARE PER NURSING PROTOCOL Absolute lymphocyte counton 04-09-2022 Lymphocytes Auto (Unsp spec) [#/Vol] 2.51 10*3/uL 0.83-4.51 [facility] Work Phone: Basophil percentageon 2021 Basophils/100 WBC (Bld) 0.5 % 0-1 [facility] Work Phone: Chloride [Moles/Vol] 105 mmol/L 98-107 [facility]: Eosinophils/100 WBC (Bld) 0.1 % 0-5 [facility] Work Phone: [phone] Glucose [Mass/Vol] 151 mg/dL 74-106 [place] Work Phone: Comment on above: Slight Lipemia, Resu lt may be falsely increased.Fasting Glucose result greater than or equal to 126 mg/dL suggests DIABETES MELLITUS per A.D.A. criteria. Neutrophils (Bld) [#/Vol] 6.1 10*3/uL 2.0-7.7 [facility] Work Phone: Neutrophils/100 WBC (Bld) 65.3 % 47-70 [facility] Work Phone: Potassium [Moles/Vol] 3.9 mmol/L 3.5-5.1 [facility] Work Phone: Comment on above: Slight Lipemia, Resu lt may be falsely increased. Sodium [Moles/Vol] 138 mmol/L 136-145 [place] Work Phone: WBC (Bld) [#/Vol] 9.3 10*3/uL 4.4-11.0 [place] Work Phone: Blood erythrocytes count (nu mber/volume)on 04-09-2022 RBC (Bld) [#/Vol] 4.91 10*6/uL 4.2-5.4 [facility] Work Phone: Blood hemoglobin measurement (mass/volume)on 04-09-2022 Hemoglobin (Bld) [Mass/Vol] 14.3 g/dL 12.0-15.0 [facility] Work Phone: Blood lymphocytes/100 leukoc yteson 04-09-2022 Lymphocytes/100 WBC (Bld) 27.0 % 19-41 [facility] Work Phone: Blood manual differential co mment interpretation (narrative result)on 04-09-2022 Manual differential comment Diego (Bld) [Interp] SCANNED [facility] Work Phone: Comment on above: AUTO DIFF OK Blood monocytes/100 leukocyt eson 04-09-2022 Monocytes/100 WBC (Bld) 6.9 % 0-10 [facility] Work Phone: Blood platelet mean volumeon 04-09-2022 Platelet mean volume (Bld) [Entitic vol] 10.2 fL 6.2-12.0 [facility] Work Phone: Determination of erythrocyte mean corpuscular volume (MCV)on 04-09-2022 MCV (RBC) [Entitic vol] 88.4 fL 81-99 [facility] Work Phone: Hematocrit Auto (Bld) [Volum e fraction]on 04-09-2022 Hematocrit (Bld) [Volume fraction] 43.4 % 37-47 [facility] Work Phone: Laboratory - Chemistry and C hemistry - challengeon 04-09-2022 CO2 [Moles/Vol] 25.0 mmol/L 21.0-32.0 [facility] Work Phone: Comment on above: Slight Lipemia, Resu lt may be falsely increased. Urea nitrogen/Creatinine [Mass ratio] 24.0 mg/mg 10-20 [facility] Work Phone: Laboratory - Drug toxicology on 04-09-2022 Amphetamines Ql (U) Negative <1000 ng/mL [facility] Work Phone: Benzodiazepines Ql (U) Negative < 200 ng/mL [facility] Work Phone: Cannabinoids Screen Ql (U) Negative < 50 ng/mL [facility] Work Phone: Cocaine Ql (U) Negative < 300 ng/mL [facility] Work Phone: Opiates Ql (U) Negative < 300 ng/mL [facility] Work Phone: Laboratory - Hematology and Cell countson 04-09-2022 Erythrocyte distribution width (RBC) [Entitic vol] 45.0 fL 35.1-43.9 [facility] Work Phone: Erythrocyte distribution width (RBC) [Ratio] 14.0 % 11.6-14.6 [facility] Work Phone: Immature granulocytes/100 WBC (Bld) 0.200 % 0.0-0.9 [facility] Work Phone: Comment on above: IG% - Immature Granu locytes (promyelocytes, myelocytes and metamyelocytes) > 1% indicates that a LEFT SHIFT is Present. MCH (RBC) [Entitic mass] 29.1 pg 27.0-32.0 [facility] Work Phone: Nucleated RBC/100 WBC (Bld) [Ratio] 0 % 0-5 [facility] Work Phone: MCHC Auto (RBC) [Mass/Vol]on 04-09-2022 MCHC (RBC) [Mass/Vol] 32.9 g/dL 32-36 [facility] Work Phone: No Panel Informationon 04-09 Estimated Creatinine Clearance Calc 58.57 ml/min [facility] Work Phone: Estimated GFR (MDRD) Amer 96 mL/min >60 [facility] Work Phone: Comment on above: GFR Calc Estimated GFR (MDRD) Non-Af Amer 79 mL/min >60 [facility] Work Phone: Comment on above: Non- GFR Calc Ethyl Alcohol Level 9.0 mg/dL [facility] Work Phone: Comment on above: The serum:whole bloo d ethanol ratio is approximately 1.14and varies slightly with hematocrit. Medical Alcohol reference interval and critical value innon-tolerant individuals; 50 - 100 Impairment 100 Intoxication 100 - 250 Severe Poisoning 250 - 400 Deep/possible fatal coma MDMA (Ecstasy) Screen Negative < 500 ng/mL [facility] Work Phone: Urine Barbiturates Screen Negative < 200 ng/mL [facility] Work Phone: Urine Drug Screen Comment [facility] Work Phone: Comment on above: [...] Methadone Screen Negative < 300 ng/mL [facility] Work Phone: Platelets bldon 04-09-2022 Platelets (Bld) [#/Vol] 197 10*3/uL 150-450 [facility] Work Phone: Serum or plasma calcium lawrence urement (mass/volume)on 04-09-2022 Calcium [Mass/Vol] 9.2 mg/dL 8.5-10.1 [place] Work Phone: Comment on above: Slight Lipemia, Resu lt may be falsely increased. Serum or plasma creatinine m easurement (mass/volume)on 04-09-2022 Creatinine [Mass/Vol] 0.79 mg/dL 0.55-1.02 [facility] Work Phone: Comment on above: Slight Lipemia, Resu lt may be falsely increased.The validity of the calculated GFR & GFRAA in patients over 70 years has not been determined. Clinical correlation is essential. Serum or plasma urea nitroge n measurement (mass/volume)on 04-09-2022 Urea nitrogen [Mass/Vol] 19 mg/dL 7-18 [facility] Work Phone: Comment on above: Slight Lipemia, Resu lt may be falsely increased. Thin prep Papanicolaou smear with manual screeningon 04-09-2022 Thin prep Papanicolaou smear with manual screening 8 5-15 [facility] Work Phone: Urine phencyclidine (PCP) de tectionon 04-09-2022 Phencyclidine Ql (U) Negative < 25 ng/mL [facility] Work Phone: Absolute lymphocyte counton 03-20-2022 Lymphocytes Auto (Unsp spec) [#/Vol] 2.53 10*3/uL 0.83-4.51 [facility] Work Phone: Basophil percentageon 2021 Basophils/100 WBC (Bld) 0.2 % 0-1 [facility] Work Phone: Eosinophils/100 WBC (Bld) 0.1 % 0-5 [facility] Work Phone: Neutrophils (Bld) [#/Vol] 5.7 10*3/uL 2.0-7.7 [facility] Work Phone: Neutrophils/100 WBC (Bld) 64.2 % 47-70 [facility] Work Phone: WBC (Bld) [#/Vol] 8.9 10*3/uL 4.4-11.0 [place] Work Phone: [phone] Blood erythrocytes count (nu mber/volume)on 03-20-2022 RBC (Bld) [#/Vol] 4.80 10*6/uL 4.2-5.4 [facility] Work Phone: Blood hemoglobin measurement (mass/volume)on 03-20-2022 Hemoglobin (Bld) [Mass/Vol] 13.9 g/dL 12.0-15.0 [facility] Work Phone: Blood lymphocytes/100 leukoc yteson 03-20-2022 Lymphocytes/100 WBC (Bld) 28.3 % 19-41 [facility] Work Phone: Blood monocytes/100 leukocyt eson 03-20-2022 Monocytes/100 WBC (Bld) 7.0 % 0-10 [facility] Work Phone: Blood platelet adequacy dete ction by light microscopyon 03-20-2022 Platelets LM Ql (Bld) ADEQUATE ADEQ [facility] Work Phone: Blood platelet mean volumeon 03-20-2022 Platelet mean volume (Bld) [Entitic vol] 11.1 fL 6.2-12.0 [facility] Work Phone: Determination of erythrocyte mean corpuscular volume (MCV)on 03-20-2022 MCV (RBC) [Entitic vol] 89.8 fL 81-99 [facility] Work Phone: Hematocrit Auto (Bld) [Volum e fraction]on 03-20-2022 Hematocrit (Bld) [Volume fraction] 43.1 % 37-47 [facility] Work Phone: Laboratory - Hematology and Cell countson 03-20-2022 Erythrocyte distribution width (RBC) [Entitic vol] 44.5 fL 35.1-43.9 [facility] Work Phone: Erythrocyte distribution width (RBC) [Ratio] 13.7 % 11.6-14.6 [facility] Work Phone: Immature granulocytes/100 WBC (Bld) 0.200 % 0.0-0.9 [facility] Work Phone: Comment on above: IG% - Immature Granu locytes (promyelocytes, myelocytes and metamyelocytes) > 1% indicates that a LEFT SHIFT is Present. MCH (RBC) [Entitic mass] 29.0 pg 27.0-32.0 [facility] Work Phone: Nucleated RBC/100 WBC (Bld) [Ratio] 0 % 0-5 [facility] Work Phone: MCHC Auto (RBC) [Mass/Vol]on 03-20-2022 MCHC (RBC) [Mass/Vol] 32.3 g/dL 32-36 [facility] Work Phone: Platelets bldon 03-20-2022 Platelets (Bld) [#/Vol] 191 10*3/uL 150-450 [facility] Work Phone: RBC morphologyon 03-20-2022 RBC morphology finding Nom (Bld) NORM C+C NORMAL NORM C&C [facility] Work Phone: Absolute lymphocyte counton 02-13-2022 Lymphocytes Auto (Unsp spec) [#/Vol] 1.99 10*3/uL 0.83-4.51 [facility] Work Phone: Basophil percentageon 2021 Basophils/100 WBC (Bld) 0.5 % 0-1 [facility] Work Phone: Eosinophils/100 WBC (Bld) 0.1 % 0-5 [facility] Work Phone: Neutrophils (Bld) [#/Vol] 5.1 10*3/uL 2.0-7.7 [facility] Work Phone: Neutrophils/100 WBC (Bld) 66.1 % 47-70 [facility] Work Phone: WBC (Bld) [#/Vol] 7.7 10*3/uL 4.4-11.0 [place] Work Phone: Blood erythrocytes count (nu mber/volume)on 02-13-2022 RBC (Bld) [#/Vol] 4.99 10*6/uL 4.2-5.4 [facility] Work Phone: Blood hemoglobin measurement (mass/volume)on 02-13-2022 Hemoglobin (Bld) [Mass/Vol] 14.4 g/dL 12.0-15.0 [facility] Work Phone: Blood lymphocytes/100 leukoc yteson 02-13-2022 Lymphocytes/100 WBC (Bld) 25.7 % 19-41 [facility] Work Phone: Blood monocytes/100 leukocyt eson 02-13-2022 Monocytes/100 WBC (Bld) 7.1 % 0-10 [facility] Work Phone: Blood platelet mean volumeon 02-13-2022 Platelet mean volume (Bld) [Entitic vol] 10.2 fL 6.2-12.0 [facility] Work Phone: Determination of erythrocyte mean corpuscular volume (MCV)on 02-13-2022 MCV (RBC) [Entitic vol] 90.6 fL 81-99 [facility] Work Phone: Hematocrit Auto (Bld) [Volum e fraction]on 02-13-2022 Hematocrit (Bld) [Volume fraction] 45.2 % 37-47 [facility] Work Phone: Laboratory - Hematology and Cell countson 02-13-2022 Erythrocyte distribution width (RBC) [Entitic vol] 45.9 fL 35.1-43.9 [facility] Work Phone: Erythrocyte distribution width (RBC) [Ratio] 13.9 % 11.6-14.6 [facility] Work Phone: Immature granulocytes/100 WBC (Bld) 0.500 % 0.0-0.9 [facility] Work Phone: Comment on above: IG% - Immature Granu locytes (promyelocytes, myelocytes and metamyelocytes) > 1% indicates that a LEFT SHIFT is Present. MCH (RBC) [Entitic mass] 28.9 pg 27.0-32.0 [facility] Work Phone: Nucleated RBC/100 WBC (Bld) [Ratio] 0 % 0-5 [facility] Work Phone: MCHC Auto (RBC) [Mass/Vol]on 02-13-2022 MCHC (RBC) [Mass/Vol] 31.9 g/dL 32-36 [facility]: Platelets bldon 02-13-2022 Platelets (Bld) [#/Vol] 231 10*3/uL 150-450 [facility] Work Phone: Absolute lymphocyte counton 01-14-2022 Lymphocytes Auto (Unsp spec) [#/Vol] 3.17 10*3/uL 0.83-4.51 [facility] Work Phone: Basophil percentageon 2021 Basophils/100 WBC (Bld) 0.6 % 0-1 [facility] Work Phone: [phone] Eosinophils/100 WBC (Bld) 0.2 % 0-5 [facility] Work Phone: Neutrophils (Bld) [#/Vol] 6.3 10*3/uL 2.0-7.7 [facility] Work Phone: [phone] Neutrophils/100 WBC (Bld) 61.6 % 47-70 [facility] Work Phone: WBC (Bld) [#/Vol] 10.3 10*3/uL 4.4-11.0 [facility] Work Phone: Blood erythrocytes count (nu mber/volume)on 01-14-2022 RBC (Bld) [#/Vol] 5.25 10*6/uL 4.2-5.4 [facility] Work Phone: Blood hemoglobin measurement (mass/volume)on 01-14-2022 Hemoglobin (Bld) [Mass/Vol] 15.0 g/dL 12.0-15.0 [facility] [facility] Work Phone[facility] Blood lymphocytes/100 leukoc yteson 01-14-2022 Lymphocytes/100 WBC (Bld) 30.9 % 19-41 [facility] Work Phone: Blood monocytes/100 leukocyt eson 01-14-2022 Monocytes/100 WBC (Bld) 6.3 % 0-10 [facility] Work Phone: Blood platelet mean volumeon 01-14-2022 Platelet mean volume (Bld) [Entitic vol] 10.7 fL 6.2-12.0 [facility] Work Phone: [phone] Determination of erythrocyte mean corpuscular volume (MCV)on 01-14-2022 MCV (RBC) [Entitic vol] 89.1 fL 81-99 [facility] Work Phone: Hematocrit Auto (Bld) [Volum e fraction]on 01-14-2022 Hematocrit (Bld) [Volume fraction] 46.8 % 37-47 [facility] Work Phone: Laboratory - Hematology and Cell countson 01-14-2022 Erythrocyte distribution width (RBC) [Entitic vol] 44.2 fL 35.1-43.9 [facility] Work Phone: Erythrocyte distribution width (RBC) [Ratio] 13.5 % 11.6-14.6 [facility] Work Phone: [phone] Immature granulocytes/100 WBC (Bld) 0.400 % 0.0-0.9 [facility] Work Phone: Comment on above: IG% - Immature Granu locytes (promyelocytes, myelocytes and metamyelocytes) > 1% indicates that a LEFT SHIFT is Present. MCH (RBC) [Entitic mass] 28.6 pg 27.0-32.0 [facility] Work Phone: Nucleated RBC/100 WBC (Bld) [Ratio] 0 % 0-5 [facility] Work Phone: MCHC Auto (RBC) [Mass/Vol]on 01-14-2022 MCHC (RBC) [Mass/Vol] 32.1 g/dL 32-36 [facility] Work Phone: No Panel Informationon 01-14 Reactive Lymphocytes [facility] Work Phone: Platelets bldon 01-14-2022 Platelets (Bld) [#/Vol] 224 10*3/uL 150-450 [facility] Work Phone: Absolute lymphocyte counton 12-13-2021 Lymphocytes Auto (Unsp spec) [#/Vol] 2.05 10*3/uL 0.83-4.51 [facility] Work Phone: Basophil percentageon 2021 Basophils/100 WBC (Bld) 0.5 % 0-1 [facility] Work Phone: [phone] Eosinophils/100 WBC (Bld) 0.1 % 0-5 [facility] Work Phone: Neutrophils (Bld) [#/Vol] 4.8 10*3/uL 2.0-7.7 [facility] Work Phone: Neutrophils/100 WBC (Bld) 64.5 % 47-70 [facility] Work Phone: WBC (Bld) [#/Vol] 7.4 10*3/uL 4.4-11.0 [facility]: Blood erythrocytes count (nu mber/volume)on 12-13-2021 RBC (Bld) [#/Vol] 4.90 10*6/uL 4.2-5.4 [facility]: Blood hemoglobin measurement (mass/volume)on 12-13-2021 Hemoglobin (Bld) [Mass/Vol] 14.6 g/dL 12.0-15.0 [facility] Work Phone: Blood lymphocytes/100 leukoc yteson 12-13-2021 Lymphocytes/100 WBC (Bld) 27.6 % 19-41 [facility] Work Phone: Blood monocytes/100 leukocyt eson 12-13-2021 Monocytes/100 WBC (Bld) 6.9 % 0-10 [facility] Work Phone: [phone] Blood platelet mean volumeon 12-13-2021 Platelet mean volume (Bld) [Entitic vol] 12.2 fL 6.2-12.0 [facility] Work Phone: Determination of erythrocyte mean corpuscular volume (MCV)on 12-13-2021 MCV (RBC) [Entitic vol] 91.0 fL 81-99 [facility] Work Phone: Hematocrit Auto (Bld) [Volum e fraction]on 12-13-2021 Hematocrit (Bld) [Volume fraction] 44.6 % 37-47 [facility] Work Phone: Laboratory - Hematology and Cell countson 12-13-2021 Erythrocyte distribution width (RBC) [Entitic vol] 45.6 fL 35.1-43.9 [facility] Work Phone: Erythrocyte distribution width (RBC) [Ratio] 13.6 % 11.6-14.6 [facility] Work Phone: Immature granulocytes/100 WBC (Bld) 0.400 % 0.0-0.9 [facility] Work Phone: Comment on above: IG% - Immature Granu locytes (promyelocytes, myelocytes and metamyelocytes) > 1% indicates that a LEFT SHIFT is Present. MCH (RBC) [Entitic mass] 29.8 pg 27.0-32.0 [facility] Work Phone: Nucleated RBC/100 WBC (Bld) [Ratio] 0 % 0-5 [facility] Work Phone: MCHC Auto (RBC) [Mass/Vol]on 12-13-2021 MCHC (RBC) [Mass/Vol] 32.7 g/dL 32-36 [facility] Work Phone: No Panel Informationon 12-13 Reactive Lymphocytes [facility] Work Phone: Platelets bldon 12-13-2021 Platelets (Bld) [#/Vol] 193 10*3/uL 150-450 [facility] Work Phone: Absolute lymphocyte counton 11-20-2021 Lymphocytes Auto (Unsp spec) [#/Vol] 2.28 10*3/uL 0.83-4.51 [facility] Work Phone: Basophil percentageon 2021 Basophils/100 WBC (Bld) 0.7 % 0-1 [facility] Work Phone: Eosinophils/100 WBC (Bld) 0.2 % 0-5 [facility] Work Phone: Neutrophils (Bld) [#/Vol] 6.6 10*3/uL 2.0-7.7 [facility] Work Phone: Neutrophils/100 WBC (Bld) 69.0 % 47-70 [facility] Work Phone: WBC (Bld) [#/Vol] 9.6 10*3/uL 4.4-11.0 [facility] Work Phone: Blood erythrocytes count (nu mber/volume)on 11-20-2021 RBC (Bld) [#/Vol] 5.04 10*6/uL 4.2-5.4 [facility] Work [facility]: Blood hemoglobin measurement (mass/volume)on 11-20-2021 Hemoglobin (Bld) [Mass/Vol] 14.7 g/dL 12.0-15.0 [facility] Work Phone: Blood lymphocytes/100 leukoc yteson 11-20-2021 Lymphocytes/100 WBC (Bld) 23.7 % 19-41 [facility] Work Phone: Blood monocytes/100 leukocyt eson 11-20-2021 Monocytes/100 WBC (Bld) 6.1 % 0-10 [facility] Work Phone: Blood platelet mean volumeon 11-20-2021 Platelet mean volume (Bld) [Entitic vol] 9.9 fL 6.2-12.0 [facility] Work Phone: Determination of erythrocyte mean corpuscular volume (MCV)on 11-20-2021 MCV (RBC) [Entitic vol] 91.1 fL 81-99 [facility] Work Phone: Hematocrit Auto (Bld) [Volum e fraction]on 11-20-2021 Hematocrit (Bld) [Volume fraction] 45.9 % 37-47 [facility] Work Phone: Laboratory - Hematology and Cell countson 11-20-2021 Erythrocyte distribution width (RBC) [Entitic vol] 46.8 fL 35.1-43.9 [facility] Work Phone: Erythrocyte distribution width (RBC) [Ratio] 14.0 % 11.6-14.6 [facility] Work Phone: Immature granulocytes/100 WBC (Bld) 0.300 % 0.0-0.9 [facility] Work Phone: Comment on above: IG% - Immature Granu locytes (promyelocytes, myelocytes and metamyelocytes) > 1% indicates that a LEFT SHIFT is Present. MCH (RBC) [Entitic mass] 29.2 pg 27.0-32.0 [facility] Work Phone: Nucleated RBC/100 WBC (Bld) [Ratio] 0 % 0-5 [facility] Work Phone: MCHC Auto (RBC) [Mass/Vol]on 11-20-2021 MCHC (RBC) [Mass/Vol] 32.0 g/dL 32-36 [facility] Work Phone: No Panel Informationon 11-20 Reactive Lymphocytes [facility] Work Phone: Platelets bldon 11-20-2021 Platelets (Bld) [#/Vol] 227 10*3/uL 150-450 [facility] Work Phone: Absolute lymphocyte counton 10-16-2021 Lymphocytes Auto (Unsp spec) [#/Vol] 2.02 10*3/uL 0.83-4.51 [facility] Work Phone: Basophil percentageon 2021 Ammonia (P) [Moles/Vol] 22.0 umol/L 11-32 [facility] Work Phone: Comment on above: Slight Lipemia, Resu lt may be falsely increased. Basophils/100 WBC (Bld) 0.6 % 0-1 [facility] Work Phone: Eosinophils/100 WBC (Bld) 0.1 % 0-5 [facility] Work Phone: Neutrophils (Bld) [#/Vol] 6.2 10*3/uL 2.0-7.7 [facility] Work Phone: Neutrophils/100 WBC (Bld) 70.6 % 47-70 [facility] Work Phone: WBC (Bld) [#/Vol] 8.8 10*3/uL 4.4-11.0 [place] Work Phone: Blood erythrocytes count (nu mber/volume)on 10-16-2021 RBC (Bld) [#/Vol] 4.93 10*6/uL 4.2-5.4 [facility] Work Phone: Blood hemoglobin measurement (mass/volume)on 10-16-2021 Hemoglobin (Bld) [Mass/Vol] 14.2 g/dL 12.0-15.0 [facility] Work Phone: Blood lymphocytes/100 leukoc yteson 10-16-2021 Lymphocytes/100 WBC (Bld) 23.1 % 19-41 [facility] Work Phone: Blood monocytes/100 leukocyt eson 10-16-2021 Monocytes/100 WBC (Bld) 5.1 % 0-10 [facility] Work Phone: Blood platelet mean volumeon 10-16-2021 Platelet mean volume (Bld) [Entitic vol] 9.6 fL 6.2-12.0 [facility] Work Phone: Determination of erythrocyte mean corpuscular volume (MCV)on 10-16-2021 MCV (RBC) [Entitic vol] 89.7 fL 81-99 [facility] Work Phone: Hematocrit Auto (Bld) [Volum e fraction]on 10-16-2021 Hematocrit (Bld) [Volume fraction] 44.2 % 37-47 [facility] Work Phone: Laboratory - Hematology and Cell countson 10-16-2021 Erythrocyte distribution width (RBC) [Entitic vol] 44.6 fL 35.1-43.9 [facility] Work Phone: Erythrocyte distribution width (RBC) [Ratio] 13.7 % 11.6-14.6 [facility] Work Phone: Immature granulocytes/100 WBC (Bld) 0.500 % 0.0-0.9 [facility] Work Phone: Comment on above: IG% - Immature Granu locytes (promyelocytes, myelocytes and metamyelocytes) > 1% indicates that a LEFT SHIFT is Present. MCH (RBC) [Entitic mass] 28.8 pg 27.0-32.0 [facility] Work Phone: Nucleated RBC/100 WBC (Bld) [Ratio] 0 % 0-5 [facility] Work Phone: MCHC Auto (RBC) [Mass/Vol]on 10-16-2021 MCHC (RBC) [Mass/Vol] 32.1 g/dL 32-36 [facility] Work Phone: Platelets bldon 10-16-2021 Platelets (Bld) [#/Vol] 226 10*3/uL 150-450 [facility] Work Phone: Absolute lymphocyte counton 09-24-2021 Lymphocytes Auto (Unsp spec) [#/Vol] 2.52 10*3/uL 0.83-4.51 [facility] Work Phone: Basophil percentageon 2020 Eosinophils/100 WBC (Bld) 0.2 % 0-5 [facility] Work Phone: Neutrophils (Bld) [#/Vol] 6.5 10*3/uL 2.0-7.7 [facility] Work Phone: WBC (Bld) [#/Vol] 9.6 10*3/uL 4.4-11.0 [place] Work Phone: Blood erythrocytes count (nu mber/volume)on 09-24-2021 RBC (Bld) [#/Vol] 4.89 10*6/uL 4.2-5.4 [facility] Work Phone: Blood hemoglobin measurement (mass/volume)on 09-24-2021 Hemoglobin (Bld) [Mass/Vol] 14.4 g/dL 12.0-15.0 [facility] Work Phone: Blood lymphocytes/100 leukoc yteson 09-24-2021 Lymphocytes/100 WBC (Bld) 26.2 % 19-41 [facility] Work Phone: Blood monocytes/100 leukocyt eson 09-24-2021 Monocytes/100 WBC (Bld) 4.7 % 0-10 [facility] Work Phone: Blood platelet mean volumeon 09-24-2021 Platelet mean volume (Bld) [Entitic vol] 12.3 fL 6.2-12.0 [facility] Work Phone: Determination of erythrocyte mean corpuscular volume (MCV)on 09-24-2021 MCV (RBC) [Entitic vol] 90.2 fL 81-99 [facility] Work Phone: Hematocrit Auto (Bld) [Volum e fraction]on 09-24-2021 Hematocrit (Bld) [Volume fraction] 44.1 % 37-47 [facility] Work Phone: Laboratory - Hematology and Cell countson 09-24-2021 Basophils/100 WBC (Unsp spec) 0.5 % 0-1 [facility] Work Phone: Erythrocyte distribution width (RBC) [Entitic vol] 46.2 fL 35.1-43.9 [facility] Work Phone: Erythrocyte distribution width (RBC) [Ratio] 14.0 % 11.6-14.6 [facility] Work Phone: [phone] Immature granulocytes/100 WBC (Bld) 0.500 % 0.0-0.9 [facility] Work Phone: Comment on above: IG% - Immature Granu locytes (promyelocytes, myelocytes and metamyelocytes) > 1% indicates that a LEFT SHIFT is Present. MCH (RBC) [Entitic mass] 29.4 pg 27.0-32.0 [facility] Work Phone: Neutrophils/100 WBC (Bld) 67.9 % 47-70 [facility] Work Phone: Nucleated RBC/100 WBC (Bld) [Ratio] 0 % 0-5 [facility] Work Phone: MCHC Auto (RBC) [Mass/Vol]on 09-24-2021 MCHC (RBC) [Mass/Vol] 32.7 g/dL 32-36 [facility] Work Phone: Platelets bldon 09-24-2021 Platelets (Bld) [#/Vol] 179 10*3/uL 150-450 [facility] Work Phone: CT BRAIN WO IVCONon 07-19-[address] BRAIN WO IVCON * * *Final Report* * * DATE OF EXAM: Jul 19 2021 4:54PM [facility] [address]504 - CT BRAIN WO IVCON / [...] reduction techniques were required COMPARISON: None. RESULT: Winter Intern (topogram) images: No additional findings. Post-operative change: [...] warranted. 2. Chronic changes, as detailed above. Sound Art Instructor: MILDRED Transcribe Date/Time: Jul 19 2021 5:08P Dictated by : CHAPARRITA STRINGER MD This examination was interpreted and the report reviewed and electronically signed by: CHAPARRITA STRINGER MD on Jul 19 2021 5:14PM EST [id number] Normal [facility] XR Chest PA and Lateralon IMPRESSION: No acute radiographic abnormality. Sound Art Instructor: MILDRED Transcribe Date/Time: Jul 19 2021 3:33P [...] the thoracic spine. DIVISION OF RADIOLOGY Provider, [facility] * * *Final [...] spine. IMPRESSION IMPRESSION: No acute radiographic abnormality. Sound Art Instructor: MILDRED Transcribe Date/Time: Jul 19 2021 3:33P Dictated by : OMAR DAILEY MD This examination was interpreted and the report reviewed and electronically signed by: OMAR DAILEY MD on Jul 19 2021 3:33PM [facility] Radiology Study observation (narrative) [facility] XR Chest PA and LateralOrder ed By: [facility] Provider on 07-19-2021 [facility] XR Chest PA and Lateralon IMPRESSION: No new or acute radiographic abnormality. Mild areas of scarring or atelectasis are less prominent than previously. Sound Art Instructor: PSCB Transcribe Date/Time: Oct 18 2020 9:56A Dictated by : SEGUNDO MOORE MD This examination was interpreted and the report reviewed and electronically signed by: SEGUNDO MOORE MD on Oct 18 2020 9:59AM [facility] DIVISION OF RADIOLOGY * * *Final [...] Normal. Other: - DIVISION OF RADIOLOGY Provider, [facility] - 10/18/2020 * * *Final Report* * [...] or atelectasis are less prominent than previously. Sound Art Instructor: MILDRED Transcribe Date/Time: Oct 18 2020 9:56A Dictated by : SEGUNDO MOORE MD This examination was interpreted and the report reviewed and electronically signed by: SEGUNDO MOORE MD on Oct 18 2020 9:59AM EST [facility] Radiology Study observation (narrative) [facility] XR Chest PA and LateralOrder ed By: [facility] Provider on 10-18-2020 [facility] COVID-19 virus antigen assay SARS-CoV-2 (COVID-19) Ag IA.rapid Ql (Resp) [facility] Work Phone: Vital Signs Date Time Vital Sign Value Performing Clinician Facility 06-28-2025 13:51-0400 Body mass index (BMI) [Ratio] 35.33 kg/m2 Aleksandar Jones MD Work Phone: [facility] 06-28-2025 13:51-0400 Body temperature 96.01 [degF] Aleksandar Jones MD Work Phone: [facility] 06-28-2025 13:51-0400 Body weight 84.82 kg Aleksandar Jones MD Work Phone: [facility] 06-28-2025 13:51-0400 Diastolic blood pressure 68 mm[Hg] Aleksandar Jones MD Work Phone: [facility] 06-28-2025 13:51-0400 Heart rate 108 /min Aleksandar Jones MD Work Phone: [facility] 06-28-2025 13:51-0400 SaO2% (BldA) [Mass fraction] 93 % Aleksandar Jones MD Work Phone: [facility] 06-28-2025 13:51-0400 Systolic blood pressure 100 mm[Hg] Aleksandar Jones MD Work Phone: [facility] 06-23-2025 12:50-0400 Body temperature 97.1 [degF] Dr. Aleksandar Jones MD Work Phone: [facility] 06-23-2025 12:50-0400 Diastolic blood pressure 67 mm[Hg] Dr. Aleksandar Jones MD Work Phone: [facility] 06-23-2025 12:50-0400 Heart rate 90 /min Dr. Aleksandar Jones MD Work Phone: 2(561)[phone] [place] [address] 06-23-2025 12:50-0400 Respiratory rate 16 /min Dr. Aleksandar Jones MD Work Phone: [facility] 06-23-2025 12:50-0400 SaO2% (BldA) [Mass fraction] 100 % Dr. Aleksandar Jones MD Work Phone: [facility] 06-23-2025 12:50-0400 Systolic blood pressure 122 mm[Hg] Dr. Aleksandar Jones MD Work Phone: [facility] 06-23-2025 09:36-0400 Body height 154.[address] Aleksandar Jones MD Work Phone: [facility] 06-23-2025 09:36-0400 Body mass index (BMI) [Ratio] 35.4 kg/m2 Dr. Aleksandar Jones MD Work Phone: [facility] 06-23-2025 09:36-0400 Body weight [address] Aleksandar Jones MD Work Phone: [facility] 04-04-2025 15:04-0400 Body mass index (BMI) [Ratio] 35.9 kg/m2 Fuentes Renee MD Work Phone: [facility] 04-04-2025 15:04-0400 Body weight 86.18 kg Fuentes Renee MD Work Phone: [facility] 04-04-2025 15:04-0400 Diastolic blood pressure 85 mm[Hg] Fuentes Renee MD Work Phone: [facility] 04-04-2025 15:04-0400 Heart rate 100 /min Fuentes Renee MD Work Phone: [facility] 04-04-2025 15:04-0400 SaO2% (BldA) [Mass fraction] 93 % Fuentes Renee MD Work Phone: [facility] 04-04-2025 15:04-0400 Systolic blood pressure 126 mm[Hg] Fuentes Renee MD Work Phone: [facility] 03-29-2025 08:59-0400 Body height 154.9 cm Aleksandar Jones MD Work Phone: [facility] 03-29-2025 08:59-0400 Body mass index (BMI) [Ratio] 35.45 kg/m2 Aleksandar Jones MD Work Phone: [facility] 03-29-2025 08:59-0400 Body temperature 97.2 [degF] Aleksandar Jones MD Work Phone: [facility] 03-29-2025 08:59-0400 Body weight 85.09 kg Aleksandar Jones MD Work Phone: [facility] 03-29-2025 08:59-0400 Diastolic blood pressure 72 mm[Hg] Aleksandar Jones MD Work Phone: [facility] 03-29-2025 08:59-0400 Heart rate 100 /min Aleksandar Jones MD Work Phone: [facility] 03-29-2025 08:59-0400 Respiratory rate 16 /min Aleksandar Jones MD Work Phone: [facility] 03-29-2025 08:59-0400 SaO2% (BldA) [Mass fraction] 91 % Aleksandar Jones MD Work Phone: [facility] Comment on above: nail ukrainian 03-29-2025 08:59-0400 Systolic blood pressure 120 mm[Hg] Aleksandar Jones MD Work Phone: [facility] 01-12-2025 10:04-0400 Body mass index (BMI) [Ratio] 35.52 kg/m2 Aleksandar Jones MD Work Phone: [facility] 01-12-2025 10:04-0400 Body weight 85.28 kg Aleksandar Jones MD Work Phone: [facility] 01-12-2025 10:04-0400 Diastolic blood pressure 72 mm[Hg] Aleksandar Jones MD Work Phone: [facility] 01-12-2025 10:04-0400 Heart rate 92 /min Aleksandar Jones MD Work Phone: [facility] 01-12-2025 10:04-0400 SaO2% (BldA) [Mass fraction] 94 % Aleksandar Jones MD Work Phone: [facility] 01-12-2025 10:04-0400 Systolic blood pressure 122 mm[Hg] Aleksandar Jones MD Work Phone: [facility] 01-10-2025 22:11-0400 Body mass index (BMI) [Ratio] 36.6 kg/m2 Dr. Aleksandar Jones MD Work Phone: [facility] 12-28-2024 14:58-0400 Body height 154.9 cm Aleksandar Jones MD Work Phone: [facility] 12-28-2024 14:58-0400 Body mass index (BMI) [Ratio] 35.14 kg/m2 Aleksandar Jones MD Work Phone: [facility] 12-28-2024 14:58-0400 Body weight 84.37 kg Aleksandar Jones MD Work Phone: [facility] 12-28-2024 14:58-0400 Diastolic blood pressure 60 mm[Hg] Aleksandar Jones MD Work Phone: [facility] 12-28-2024 14:58-0400 Heart rate 113 /min Aleksandar Jones MD Work Phone: [facility] 12-28-2024 14:58-0400 SaO2% (BldA) [Mass fraction] 92 % Aleksandar Jones MD Work Phone: [facility] 12-28-2024 14:58-0400 Systolic blood pressure 126 mm[Hg] Aleksandar Jones MD Work Phone: [facility] 12-21-2024 12:29-0400 Body temperature 98.9 [degF] Dr. Aleksandar Jones MD Work Phone: [facility] 12-21-2024 12:29-0400 Diastolic blood pressure 99 mm[Hg] Dr. Aleksandar Jones MD Work Phone: 9(836)[phone] [place] [address] 12-21-2024 12:29-0400 Heart rate 78 /min Dr. Aleksandar Jones MD Work Phone: 1(248)[phone] [place] [address] 12-21-2024 12:29-0400 Respiratory rate 18 /min Dr. Aleksandar Jones MD Work Phone: [facility] 12-21-2024 12:29-0400 SaO2% (BldA) [Mass fraction] 99 % Dr. Aleksandar Jones MD Work Phone: 0(198)[phone] [place] [address] 12-21-2024 12:29-0400 Systolic blood pressure 137 mm[Hg] Dr. Aleksandar Jones MD Work Phone: 4(056)[phone] [place] [address] 12-21-2024 08:44-0400 Body height 154.[address] Aleksandar Jones MD Work Phone: [facility] 12-21-2024 08:44-0400 Body mass index (BMI) [Ratio] 35.7 kg/m2 Dr. Aleksandar Jones MD Work Phone: 1(333)[phone] [place] [address] 12-21-2024 08:44-0400 Body weight 85.[address] Aleksandar Jones MD Work Phone: [facility] 12-11-2024 04:48-0500 Body mass index (BMI) [Ratio] 36.6 kg/m2 Dr. Aleksandar Jones MD Work Phone: [facility] 12-07-2024 09:58-0500 Diastolic blood pressure 72 mm[Hg] Radha Batista APRN.CNP Work Phone: [facility] 12-07-2024 09:58-0500 Heart rate 102 /min Radha Batista SMELLER.TOOL PROFILING MACHINE SET UP OPERATOR Work Phone: [facility] 12-07-2024 09:58-0500 Respiratory rate 18 /min Radha Batista SMELLER.TOOL PROFILING MACHINE SET UP OPERATOR Work Phone: [facility] 12-07-2024 09:58-0500 SaO2% (BldA) [Mass fraction] 92 % Radha Batista SMELLER.TOOL PROFILING MACHINE SET UP OPERATOR Work Phone: [facility] 12-07-2024 09:58-0500 Systolic blood pressure 108 mm[Hg] Radha Batista SMELLER.TOOL PROFILING MACHINE SET UP OPERATOR Work Phone: [facility] 11-13-2024 01:33-0500 Body mass index (BMI) [Ratio] 36.6 kg/m2 Dr. Aleksandar Jones MD Work Phone: 5(446)841-383493 [place] [address] 11-12-2024 13:40-0500 Body temperature 97.6 [degF] Dr. Aleksandar Jones MD Work Phone: 6(501)[phone] [place] [address] 11-12-2024 13:40-0500 Diastolic blood pressure 75 mm[Hg] Dr. Aleksandar Jones MD Work Phone: 3(000)393-599793 [place] [address] 11-12-2024 13:40-0500 Heart rate 107 /min Dr. Aleksandar Jones MD Work Phone: 7(311)894-960993 [place] [address] 11-12-2024 13:40-0500 Respiratory rate 18 /min Dr. Aleksandar Jones MD Work Phone: 7(742)[phone] [place] [address] 11-12-2024 13:40-0500 SaO2% (BldA) [Mass fraction] 93 % Dr. Aleksandar Jones MD Work Phone: 5(907)[phone] [place] [address] 11-12-2024 13:40-0500 Systolic blood pressure 134 mm[Hg] Dr. Aleksandar Jones MD Work Phone: 8(496)062-549193 [place] [address] 11-12-2024 06:00-0500 Body mass index (BMI) [Ratio] 34.3 kg/m2 Dr. Aleksandar Jones MD Work Phone: 1(552)889-971893 [place] [address] 11-12-2024 06:00-0500 Body weight 82.[address] [facility]ks[facility] Jones [facility] Work Phone: [facility] [facility]10-[facility]24 07:56-0500 Inhaled oxygen flow rate 2 L/min Dr. Aleksandar Jones MD Work Phone: [facility] 11-09-2024 18:05-0500 Body temperature 99.19 [degF] Zaira Mancilla SMELLER.TOOL PROFILING MACHINE SET UP OPERATOR Work Phone: [facility] 11-09-2024 18:05-0500 Heart rate 115 /min Zaira Mancilla SMELLER.TOOL PROFILING MACHINE SET UP OPERATOR Work Phone: [facility] 11-09-2024 18:05-0500 Respiratory rate 32 /min Zaira Mancilla SMELLER.TOOL PROFILING MACHINE SET UP OPERATOR Work Phone: [facility] 11-09-2024 18:05-0500 SaO2% (BldA) [Mass fraction] 94 % Zaira Mancilla SMELLER.TOOL PROFILING MACHINE SET UP OPERATOR Work Phone: [facility] 11-09-2024 16:56-0500 Body mass index (BMI) [Ratio] 34.42 kg/m2 Zaira Mancilla SMELLER.TOOL PROFILING MACHINE SET UP OPERATOR Work Phone: [facility] 11-09-2024 16:56-0500 Body weight 84.3 kg Zaira Mancilla SMELLER.TOOL PROFILING MACHINE SET UP OPERATOR Work Phone: [facility] 11-09-2024 16:56-0500 Diastolic blood pressure 80 mm[Hg] Zaira Mancilla SMELLER.TOOL PROFILING MACHINE SET UP OPERATOR Work Phone: [facility] 11-09-2024 16:56-0500 Systolic blood pressure 122 mm[Hg] Zaira Mancilla SMELLER.TOOL PROFILING MACHINE SET UP OPERATOR Work Phone: [facility] 11-02-2024 13:59-0500 Diastolic blood pressure 76 mm[Hg] Radha Haagen SMELLER.TOOL PROFILING MACHINE SET UP OPERATOR Work Phone: [facility] 11-02-2024 13:59-0500 Heart rate 110 /min Radha Dacostaagen SMELLER.TOOL PROFILING MACHINE SET UP OPERATOR Work Phone: [facility] 11-02-2024 13:59-0500 Respiratory rate 16 /min Radha Batista SMELLER.TOOL PROFILING MACHINE SET UP OPERATOR Work Phone: [facility] 11-02-2024 13:59-0500 SaO2% (BldA) [Mass fraction] 93 % Radha Batista SMELLER.TOOL PROFILING MACHINE SET UP OPERATOR Work Phone: [facility] 11-02-2024 13:59-0500 Systolic blood pressure 128 mm[Hg] Radha Batista SMELLER.TOOL PROFILING MACHINE SET UP OPERATOR Work Phone: [facility] 10-14-2024 18:59-0500 Body temperature 98.3 [degF] Dr. Aleksandar Jones MD Work Phone: 8(617)589-203045 [place] [address] 10-14-2024 18:59-0500 Diastolic blood pressure 85 mm[Hg] Dr. Aleksandar Jones MD Work Phone: 7(058)172-078593 [place] [address] 10-14-2024 18:59-0500 Heart rate 105 /min Dr. Aleksandar Jones MD Work Phone: 3(726)652-640145 [place] [address] 10-14-2024 18:59-0500 Respiratory rate 18 /min Dr. Aleksandar Jones MD Work Phone: 5(386)547-326145 [place] [address] 10-14-2024 18:59-0500 SaO2% (BldA) [Mass fraction] 94 % Dr. Aleksandar Jones MD Work Phone: 5(753)807-889145 [place] [address] 10-14-2024 18:59-0500 Systolic blood pressure 134 mm[Hg] Dr. Aleksandar Jones MD Work Phone: 5(956)352-085045 [place] [address] 10-13-2024 04:23-0500 Body mass index (BMI) [Ratio] 36.6 kg/m2 Dr. Aleksandar Jones MD Work Phone: 0(584)625-444645 [place] [address] 09-28-2024 12:55-0500 Body mass index (BMI) [Ratio] 34.63 kg/m2 Radha Batista SMELLER.TOOL PROFILING MACHINE SET UP OPERATOR Work Phone: 8(770)757-588991 [place] [address] 09-28-2024 12:55-0500 Body weight 84.82 kg Radha Haagen SMELLER.TOOL PROFILING MACHINE SET UP OPERATOR Work Phone: [facility] 09-28-2024 12:55-0500 Diastolic blood pressure 80 mm[Hg] Radha Haagen SMELLER.TOOL PROFILING MACHINE SET UP OPERATOR Work Phone: [facility] 09-28-2024 12:55-0500 Heart rate 99 /min Radha Haagen SMELLER.TOOL PROFILING MACHINE SET UP OPERATOR Work Phone: [facility] 09-28-2024 12:55-0500 Respiratory rate 16 /min Radha Haagen SMELLER.TOOL PROFILING MACHINE SET UP OPERATOR Work Phone: [facility] 09-28-2024 12:55-0500 SaO2% (BldA) [Mass fraction] 97 % Radha Haagen SMELLER.TOOL PROFILING MACHINE SET UP OPERATOR Work Phone: [facility] 09-28-2024 12:55-0500 Systolic blood pressure 124 mm[Hg] Radha Haagen SMELLER.TOOL PROFILING MACHINE SET UP OPERATOR Work Phone: [facility] 09-20-2024 12:51-0500 Body mass index (BMI) [Ratio] 34.52 kg/m2 Fuentes Renee MD Work Phone: [facility] 09-20-2024 12:51-0500 Body weight 84.55 kg Fuentes Renee MD Work Phone: [facility] 09-20-2024 12:51-0500 Diastolic blood pressure 79 mm[Hg] Fuentes Renee MD Work Phone: [facility] 09-20-2024 12:51-0500 Heart rate 104 /min Fuentes Renee MD Work Phone: [facility] 09-20-2024 12:51-0500 SaO2% (BldA) [Mass fraction] 92 % Fuentes Renee MD Work Phone: [facility] 09-20-2024 12:51-0500 Systolic blood pressure 126 mm[Hg] Fuentes Renee MD Work Phone: [facility] 09-11-2024 23:34-0500 Body mass index (BMI) [Ratio] 36.6 kg/m2 Dr. Aleksandar Jones MD Work Phone: [facility] 09-08-2024 09:06-0500 Diastolic blood pressure 60 mm[Hg] Radha Haagen SMELLER.TOOL PROFILING MACHINE SET UP OPERATOR Work Phone: [facility] 09-08-2024 09:06-0500 Heart rate 94 /min Radha Haagen SMELLER.TOOL PROFILING MACHINE SET UP OPERATOR Work Phone: [facility] 09-08-2024 09:06-0500 Respiratory rate 16 /min Radha Haagen SMELLER.TOOL PROFILING MACHINE SET UP OPERATOR Work Phone: [facility] 09-08-2024 09:06-0500 SaO2% (BldA) [Mass fraction] 94 % Radha Haagen SMELLER.TOOL PROFILING MACHINE SET UP OPERATOR Work Phone: [facility] 09-08-2024 09:06-0500 Systolic blood pressure 122 mm[Hg] Radha Haagen SMELLER.TOOL PROFILING MACHINE SET UP OPERATOR Work Phone: [facility] 08-24-2024 15:05-0500 Body mass index (BMI) [Ratio] 34.82 kg/m2 Shelia Suppan SMELLER.TOOL PROFILING MACHINE SET UP OPERATOR Work Phone: [facility] 08-24-2024 15:05-0500 Body temperature 97.5 [degF] Shelia Suppan SMELLER.TOOL PROFILING MACHINE SET UP OPERATOR Work Phone: [facility] 08-24-2024 15:05-0500 Body weight 85.28 kg Shelia Suppan SMELLER.TOOL PROFILING MACHINE SET UP OPERATOR Work Phone: [facility] 08-24-2024 15:05-0500 Diastolic blood pressure 64 mm[Hg] Shelia Suppan SMELLER.TOOL PROFILING MACHINE SET UP OPERATOR Work Phone: [facility] 08-24-2024 15:05-0500 Heart rate 109 /min Shelia Suppan SMELLER.TOOL PROFILING MACHINE SET UP OPERATOR Work Phone: [facility] 08-24-2024 15:05-0500 Respiratory rate 24 /min Shelia Suppan SMELLER.TOOL PROFILING MACHINE SET UP OPERATOR Work Phone: [facility] 08-24-2024 15:05-0500 SaO2% (BldA) [Mass fraction] 94 % Shelia Salmon SMELLER.TOOL PROFILING MACHINE SET UP OPERATOR Work Phone: [facility] 08-24-2024 15:05-0500 Systolic blood pressure 132 mm[Hg] Shelia Salmon SMELLER.TOOL PROFILING MACHINE SET UP OPERATOR Work Phone: [facility] 08-12-2024 20:47-0400 Body mass index (BMI) [Ratio] 36.6 kg/m2 Dr. Aleksandar Jones MD Work Phone: [facility] 07-23-2024 08:43-0400 Body mass index (BMI) [Ratio] 34.3 kg/m2 Adriano Riri SMELLER.TOOL PROFILING MACHINE SET UP OPERATOR Work Phone: [facility] 07-23-2024 08:43-0400 Body temperature 97 [degF] Adriano Menezes SMELLER.TOOL PROFILING MACHINE SET UP OPERATOR Work Phone: [facility] 07-23-2024 08:43-0400 Body weight 84 kg Adrianogrover Menezes SMELLER.TOOL PROFILING MACHINE SET UP OPERATOR Work Phone: [facility] 07-23-2024 08:43-0400 Diastolic blood pressure 67 mm[Hg] Adriano Anabelllink SMELLER.TOOL PROFILING MACHINE SET UP OPERATOR Work Phone: [facility] 07-23-2024 08:43-0400 Heart rate 93 /min Adriano Menezes SMELLER.TOOL PROFILING MACHINE SET UP OPERATOR Work Phone: [facility] 07-23-2024 08:43-0400 Respiratory rate 22 /min Adriano Menezes SMELLER.TOOL PROFILING MACHINE SET UP OPERATOR Work Phone: [facility] 07-23-2024 08:43-0400 SaO2% (BldA) [Mass fraction] 96 % Adriano Menezes SMELLER.TOOL PROFILING MACHINE SET UP OPERATOR Work Phone: [facility] 07-23-2024 08:43-0400 Systolic blood pressure 100 mm[Hg] Adriano Menezes SMELLER.TOOL PROFILING MACHINE SET UP OPERATOR Work Phone: [facility] 07-06-2024 14:23-0400 Body mass index (BMI) [Ratio] 34.45 kg/m2 Radha Batista SMELLER.TOOL PROFILING MACHINE SET UP OPERATOR Work Phone: [facility] 07-06-2024 14:23-0400 Body weight 84.37 kg Radha Haagen SMELLER.TOOL PROFILING MACHINE SET UP OPERATOR Work Phone: [facility] 07-06-2024 14:23-0400 Diastolic blood pressure 82 mm[Hg] Radha Haagen SMELLER.TOOL PROFILING MACHINE SET UP OPERATOR Work Phone: [facility] 07-06-2024 14:23-0400 Heart rate 108 /min Radha Haagen SMELLER.TOOL PROFILING MACHINE SET UP OPERATOR Work Phone: [facility] 07-06-2024 14:23-0400 Respiratory rate 16 /min Radha Haagen SMELLER.TOOL PROFILING MACHINE SET UP OPERATOR Work Phone: [facility] 07-06-2024 14:23-0400 SaO2% (BldA) [Mass fraction] 91 % Radha Haagen SMELLER.TOOL PROFILING MACHINE SET UP OPERATOR Work Phone: [facility] 07-06-2024 14:23-0400 Systolic blood pressure 132 mm[Hg] Radha Haagen SMELLER.TOOL PROFILING MACHINE SET UP OPERATOR Work Phone: [facility] 04-14-2024 12:59-0400 Diastolic blood pressure 70 mm[Hg] Radha Haagen SMELLER.TOOL PROFILING MACHINE SET UP OPERATOR Work Phone: [facility] 04-14-2024 12:59-0400 Heart rate 110 /min Radha Haagen SMELLER.TOOL PROFILING MACHINE SET UP OPERATOR Work Phone: [facility] 04-14-2024 12:59-0400 Respiratory rate 16 /min Radha Haagen SMELLER.TOOL PROFILING MACHINE SET UP OPERATOR Work Phone: [facility] 04-14-2024 12:59-0400 SaO2% (BldA) [Mass fraction] 93 % Radha Haagen SMELLER.TOOL PROFILING MACHINE SET UP OPERATOR Work Phone: [facility] 04-14-2024 12:59-0400 Systolic blood pressure 118 mm[Hg] Radha Haagen SMELLER.TOOL PROFILING MACHINE SET UP OPERATOR Work Phone: [facility] 03-30-2024 08:52-0400 Body height 156.5 cm Radha Haagen SMELLER.TOOL PROFILING MACHINE SET UP OPERATOR Work Phone: [facility] 03-30-2024 08:52-0400 Body mass index (BMI) [Ratio] 33.71 kg/m2 Radha Haagen SMELLER.TOOL PROFILING MACHINE SET UP OPERATOR Work Phone: [facility] 03-30-2024 08:52-0400 Body weight 82.56 kg Radha Haagen SMELLER.TOOL PROFILING MACHINE SET UP OPERATOR Work Phone: [facility] 03-30-2024 08:52-0400 Diastolic blood pressure 72 mm[Hg] Radha Haagen SMELLER.TOOL PROFILING MACHINE SET UP OPERATOR Work Phone: [facility] 03-30-2024 08:52-0400 Heart rate 91 /min Radha Haagen SMELLER.TOOL PROFILING MACHINE SET UP OPERATOR Work Phone: [facility] 03-30-2024 08:52-0400 Respiratory rate 16 /min Radha Haagen SMELLER.TOOL PROFILING MACHINE SET UP OPERATOR Work Phone: [facility] 03-30-2024 08:52-0400 SaO2% (BldA) [Mass fraction] 96 % Radha Haagen SMELLER.TOOL PROFILING MACHINE SET UP OPERATOR Work Phone: [facility] 03-30-2024 08:52-0400 Systolic blood pressure 108 mm[Hg] Radha Haagen SMELLER.TOOL PROFILING MACHINE SET UP OPERATOR Work Phone: [facility] 03-19-2024 08:47-0400 Diastolic blood pressure 80 mm[Hg] Radha Haagen SMELLER.TOOL PROFILING MACHINE SET UP OPERATOR Work Phone: [facility] 03-19-2024 08:47-0400 Heart rate 98 /min Radha Haagen SMELLER.TOOL PROFILING MACHINE SET UP OPERATOR Work Phone: [facility] 03-19-2024 08:47-0400 Respiratory rate 16 /min Radha Haagen SMELLER.TOOL PROFILING MACHINE SET UP OPERATOR Work Phone: [facility] 03-19-2024 08:47-0400 SaO2% (BldA) [Mass fraction] 91 % Radha Haagen SMELLER.TOOL PROFILING MACHINE SET UP OPERATOR Work Phone: [facility] 03-19-2024 08:47-0400 Systolic blood pressure 126 mm[Hg] Radha Haagen SMELLER.TOOL PROFILING MACHINE SET UP OPERATOR Work Phone: [facility] 03-02-2024 08:50-0400 Body mass index (BMI) [Ratio] 34.01 kg/m2 Radha Haagen SMELLER.TOOL PROFILING MACHINE SET UP OPERATOR Work Phone: [facility] 03-02-2024 08:50-0400 Body weight 81.65 kg Radha Haagen SMELLER.TOOL PROFILING MACHINE SET UP OPERATOR Work Phone: [facility] 03-02-2024 08:50-0400 Diastolic blood pressure 70 mm[Hg] Radha Haagen SMELLER.TOOL PROFILING MACHINE SET UP OPERATOR Work Phone: [facility] 03-02-2024 08:50-0400 Heart rate 93 /min Radha Haagen SMELLER.TOOL PROFILING MACHINE SET UP OPERATOR Work Phone: [facility] 03-02-2024 08:50-0400 Respiratory rate 16 /min Radha Haagen SMELLER.TOOL PROFILING MACHINE SET UP OPERATOR Work Phone: [facility] 03-02-2024 08:50-0400 SaO2% (BldA) [Mass fraction] 92 % Radha Haagen SMELLER.TOOL PROFILING MACHINE SET UP OPERATOR Work Phone: [facility] 03-02-2024 08:50-0400 Systolic blood pressure 108 mm[Hg] Radha Haagen SMELLER.TOOL PROFILING MACHINE SET UP OPERATOR Work Phone: [facility] 02-05-2024 08:00-0400 Diastolic blood pressure 72 mm[Hg] Jaci Kashuba WORKFORCE INVESTMENT ACT CAREER MANAGER Work Phone: [facility] 02-05-2024 08:00-0400 Heart rate 95 /min Jaci Kashuba WORKFORCE INVESTMENT ACT CAREER MANAGER Work Phone: [facility] 02-05-2024 08:00-0400 SaO2% (BldA) [Mass fraction] 94 % Jaic Kashuba WORKFORCE INVESTMENT ACT CAREER MANAGER Work Phone: [facility] Comment on above: increased to 97 with instruction for vicente p breathing 02-05-2024 08:00-0400 Systolic blood pressure 113 mm[Hg] Jaci Kashuba WORKFORCE INVESTMENT ACT CAREER MANAGER Work Phone: [facility] 01-21-2024 11:00-0400 Diastolic blood pressure 78 mm[Hg] Long Golias PT Work Phone: [facility] 01-21-2024 11:00-0400 Heart rate 98 /min Long Golias PT Work Phone: [facility] 01-21-2024 11:00-0400 Systolic blood pressure 118 mm[Hg] Long Golias PT Work Phone: [facility] 01-13-2024 09:07-0400 Body weight 82.56 kg Radha Haagen SMELLER.TOOL PROFILING MACHINE SET UP OPERATOR Work Phone: [facility] 01-13-2024 09:07-0400 Diastolic blood pressure 80 mm[Hg] Radha Batista SMELLER.TOOL PROFILING MACHINE SET UP OPERATOR Work Phone: [facility] 01-13-2024 09:07-0400 Heart rate 89 /min Radha Dacostaagen SMELLER.TOOL PROFILING MACHINE SET UP OPERATOR Work Phone: [facility] 01-13-2024 09:07-0400 Respiratory rate 16 /min Radha Batista SMELLER.TOOL PROFILING MACHINE SET UP OPERATOR Work Phone: [facility] 01-13-2024 09:07-0400 SaO2% (BldA) [Mass fraction] 97 % Radha Batista SMELLER.TOOL PROFILING MACHINE SET UP OPERATOR Work Phone: [facility] 01-13-2024 09:07-0400 Systolic blood pressure 110 mm[Hg] Radha Batista SMELLER.TOOL PROFILING MACHINE SET UP OPERATOR Work Phone: [facility] 01-10-2024 22:32-0400 Body mass index (BMI) [Ratio] 36.6 kg/m2 [facility] 12-13-2023 23:59-0500 Body temperature 98 [degF] Dr. Aleksandar Jones Work Phone: [facility] 12-13-2023 23:59-0500 Diastolic blood pressure 68 mm[Hg] Dr. Aleksandar Jones Work Phone: [facility] 12-13-2023 23:59-0500 Heart rate 88 /min Dr. Aleksandar Jones Work Phone: [facility] 12-13-2023 23:59-0500 Respiratory rate 16 /min Dr. Aleksandar Jones Work Phone: [facility] 12-13-2023 23:59-0500 SaO2% (BldA) [Mass fraction] 97 % Dr. Aleksandar Jones Work Phone: [facility] 12-13-2023 23:59-0500 Systolic blood pressure 112 mm[Hg] Dr. Aleksandar Jones Work Phone: [facility] 12-13-2023 18:09-0500 Body height 154.[address] Aleksandar Jones Work Phone: [facility] 12-13-2023 18:09-0500 Body mass index (BMI) [Ratio] 33.4 kg/m2 Dr. Aleksandar Jones Work Phone: [facility] 12-13-2023 18:09-0500 Body weight 80.[address] Aleksandar Jones Work Phone: [facility] 12-11-2023 23:05-0500 Body mass index (BMI) [Ratio] 36.6 kg/m2 [facility] 11-12-2023 22:38-0500 Body mass index (BMI) [Ratio] 36.6 kg/m2 Dr. Aleksandar Jones Work Phone: [facility] 10-12-2023 20:50-0500 Body mass index (BMI) [Ratio] 36.6 kg/m2 Dr. Aleksandar Jones Work Phone: [facility] 09-22-2023 15:48-0500 Body weight 78.93 kg Fuentes Renee MD Work Phone: [facility] 09-22-2023 15:48-0500 Diastolic blood pressure 76 mm[Hg] Fuentes Renee MD Work Phone: [facility] 09-22-2023 15:48-0500 Heart rate 114 /min Fuentes Renee MD Work Phone: [facility] 09-22-2023 15:48-0500 SaO2% (BldA) [Mass fraction] 96 % Fuentes Renee MD Work Phone: [facility] 09-22-2023 15:48-0500 Systolic blood pressure 118 mm[Hg] Fuentes Renee MD Work Phone: [facility] 09-12-2023 03:19-0500 Body mass index (BMI) [Ratio] 36.6 kg/m2 Dr. Aleksandar Jones Work Phone: [facility] 08-29-2023 15:12-0500 Body height 154.9 cm Alma Rox SMELLER.TOOL PROFILING MACHINE SET UP OPERATOR Work Phone: [facility] 08-29-2023 15:12-0500 Body weight 78.93 kg Alma Avon SMELLER.TOOL PROFILING MACHINE SET UP OPERATOR Work Phone: [facility] 08-29-2023 15:12-0500 Diastolic blood pressure 72 mm[Hg] Alma Avon SMELLER.TOOL PROFILING MACHINE SET UP OPERATOR Work Phone: [facility] 08-29-2023 15:12-0500 Systolic blood pressure 118 mm[Hg] Alma Rox SMELLER.TOOL PROFILING MACHINE SET UP OPERATOR Work Phone: [facility] 08-16-2023 13:15-0400 Body temperature 98 [degF] Dr. Aleksandar Jones Work Phone: [facility] 08-16-2023 13:15-0400 Diastolic blood pressure 73 mm[Hg] Dr. Aleksandar Jones Work Phone: [facility] 08-16-2023 13:15-0400 Heart rate 96 /min Dr. Aleksandar Jones Work Phone: [facility] 08-16-2023 13:15-0400 Respiratory rate 16 /min Dr. Aleksandar Jones Work Phone: [facility] 08-16-2023 13:15-0400 SaO2% (BldA) [Mass fraction] 94 % Dr. Aleksandar Jones Work Phone: [facility] 08-16-2023 13:15-0400 Systolic blood pressure 111 mm[Hg] Dr. Aleksandar Jones Work Phone: 1(140)859-435993 [place] [address] 08-16-2023 12:44-0400 Inhaled oxygen flow rate 0 L/min Dr. Aleksandar Jones Work Phone: 6(485)583-537093 [place] [address] 08-16-2023 04:16-0400 Body mass index (BMI) [Ratio] 31.6 kg/m2 Dr. Aleksandar Jones Work Phone: 3(576)627-160993 [place] [address] 08-16-2023 04:16-0400 Body weight [address] Aleksandar Jones Work Phone: 9(129)249-610093 [place] [address] 08-15-2023 12:03-0400 Body height 154.[address] Aleksandar Jones Work Phone: 7(025)851-272593 [place] [address] 08-14-2023 23:25-0400 Diastolic blood pressure 77 mm[Hg] Dr. Aleksandar Jones Work Phone: 0(386)475-020893 [place] [address] 08-14-2023 23:25-0400 Heart rate 97 /min Dr. Aleksandar Jones Work Phone: 3(476)330-505693 [place] [address] 08-14-2023 23:25-0400 Respiratory rate 26 /min Dr. Aleksandar Jones Work Phone: 8(607)599-654693 [place] [address] 08-14-2023 23:25-0400 SaO2% (BldA) [Mass fraction] 94 % Dr. Aleksandar Jones Work Phone: 4(689)184-016093 [place] [address] 08-14-2023 23:25-0400 Systolic blood pressure 110 mm[Hg] Dr. Aleksandar Jones Work Phone: 9(389)902-231593 [place] [address] 08-14-2023 22:19-0400 Inhaled oxygen flow rate 2 L/min Dr. Aleksandar Jones Work Phone: 3(484)548-472593 [place] [address] 08-14-2023 17:06-0400 Body temperature 97.4 [degF] Dr. Aleksandar Jones Work Phone: 1(737)385-221193 [place] [address] 08-14-2023 17:02-0400 Body height 154.[address] Aleksandar Jones Work Phone: [facility] 08-14-2023 17:02-0400 Body mass index (BMI) [Ratio] 33.5 kg/m2 Dr. Aleksandar Jones Work Phone: [facility] 08-14-2023 17:02-0400 Body weight 80.[address] Aleksandar Jones Work Phone: [facility] 08-12-2023 22:56-0400 Body mass index (BMI) [Ratio] 36.6 kg/m2 Dr. Aleksandar Jones Work Phone: [facility] 07-13-2023 02:43-0400 Body mass index (BMI) [Ratio] 36.6 kg/m2 Dr. Aleksandar Jones Work Phone: [facility] 06-12-2023 22:53-0400 Body mass index (BMI) [Ratio] 36.6 kg/m2 [facility] 05-13-2023 00:41-0400 Body mass index (BMI) [Ratio] 36.6 kg/m2 [facility] 04-29-2023 14:31-0400 Body weight 78.02 kg Radha Batista SMELLER.TOOL PROFILING MACHINE SET UP OPERATOR Work Phone: [facility] 04-29-2023 14:31-0400 Diastolic blood pressure 82 mm[Hg] Radha Batista SMELLER.TOOL PROFILING MACHINE SET UP OPERATOR Work Phone: [facility] 04-29-2023 14:31-0400 Heart rate 109 /min Radha Batista SMELLER.TOOL PROFILING MACHINE SET UP OPERATOR Work Phone: [facility] 04-29-2023 14:31-0400 Respiratory rate 16 /min Radha Batista SMELLER.TOOL PROFILING MACHINE SET UP OPERATOR Work Phone: [facility] 04-29-2023 14:31-0400 SaO2% (BldA) [Mass fraction] 92 % Radha Batista SMELLER.TOOL PROFILING MACHINE SET UP OPERATOR Work Phone: [facility] 04-29-2023 14:31-0400 Systolic blood pressure 124 mm[Hg] Radha Batista SMELLER.TOOL PROFILING MACHINE SET UP OPERATOR Work Phone: [facility] 04-11-2023 22:19-0400 Body mass index (BMI) [Ratio] 36.6 kg/m2 [facility] 03-13-2023 09:37-0400 Body mass index (BMI) [Ratio] 36.6 kg/m2 [facility] 02-09-2023 01:19-0400 Body mass index (BMI) [Ratio] 36.6 kg/m2 [facility] 01-11-2023 00:24-0400 Body mass index (BMI) [Ratio] 36.6 kg/m2 [facility] 12-10-2022 22:30-0500 Body mass index (BMI) [Ratio] 36.6 kg/m2 [facility] 11-13-2022 08:16-0500 Body mass index (BMI) [Ratio] 36.6 kg/m2 [facility] 10-13-2022 03:52-0500 Body mass index (BMI) [Ratio] 36.6 kg/m2 [facility] 09-11-2022 23:10-0500 Body mass index (BMI) [Ratio] 36.6 kg/m2 [facility] 08-28-2022 13:53-0500 Body weight 83.01 kg Radha Batista APRN.TOOL PROFILING MACHINE SET UP OPERATOR Work Phone: [facility] 08-28-2022 13:53-0500 Diastolic blood pressure 72 mm[Hg] Radha Batista APRN.TOOL PROFILING MACHINE SET UP OPERATOR Work Phone: [facility] 08-28-2022 13:53-0500 Heart rate 98 /min Radha Batista APRN.TOOL PROFILING MACHINE SET UP OPERATOR Work Phone: [facility] 08-28-2022 13:53-0500 Respiratory rate 18 /min Radha Batista APRN.TOOL PROFILING MACHINE SET UP OPERATOR Work Phone: [facility] 08-28-2022 13:53-0500 SaO2% (BldA) [Mass fraction] 96 % Radha Batista APRN.TOOL PROFILING MACHINE SET UP OPERATOR Work Phone: [facility] 08-28-2022 13:53-0500 Systolic blood pressure 124 mm[Hg] Radha Batista APRN.TOOL PROFILING MACHINE SET UP OPERATOR Work Phone: [facility] 08-13-2022 10:20-0400 Body mass index (BMI) [Ratio] 36.6 kg/m2 [facility] 08-08-2022 13:42-0400 Body temperature 97.39 [degF] Zaira Mancilla SMELLER.TOOL PROFILING MACHINE SET UP OPERATOR Work Phone: [facility] 08-08-2022 13:42-0400 Body weight 82.83 kg Zaira Mancilla SMELLER.TOOL PROFILING MACHINE SET UP OPERATOR Work Phone: [facility] 08-08-2022 13:42-0400 Diastolic blood pressure 76 mm[Hg] Zaira Mancilla SMELLER.TOOL PROFILING MACHINE SET UP OPERATOR Work Phone: [facility] 08-08-2022 13:42-0400 Heart rate 108 /min Zaira Mancilla SMELLER.TOOL PROFILING MACHINE SET UP OPERATOR Work Phone: [facility] 08-08-2022 13:42-0400 Respiratory rate 16 /min Zaira Mancilla SMELLER.TOOL PROFILING MACHINE SET UP OPERATOR Work Phone: [facility] 08-08-2022 13:42-0400 SaO2% (BldA) [Mass fraction] 97 % Zaira Mancilla SMELLER.TOOL PROFILING MACHINE SET UP OPERATOR Work Phone: [facility] 08-08-2022 13:42-0400 Systolic blood pressure 130 mm[Hg] Zaira Mancilla SMELLER.TOOL PROFILING MACHINE SET UP OPERATOR Work Phone: [facility] 07-12-2022 21:34-0400 Body mass index (BMI) [Ratio] 36.6 kg/m2 [facility] 07-05-2022 13:00-0400 Body temperature 97 [degF] Zaira Mancilla SMELLER.TOOL PROFILING MACHINE SET UP OPERATOR Work Phone: [facility] 07-05-2022 13:00-0400 Body weight 83.19 kg Zaira Mancilla SMELLER.TOOL PROFILING MACHINE SET UP OPERATOR Work Phone: [facility] 07-05-2022 13:00-0400 Diastolic blood pressure 74 mm[Hg] Zaira Mancilla SMELLER.TOOL PROFILING MACHINE SET UP OPERATOR Work Phone: [facility] 07-05-2022 13:00-0400 Heart rate 112 /min Zaira Mancilla SMELLER.TOOL PROFILING MACHINE SET UP OPERATOR Work Phone: [facility] 07-05-2022 13:00-0400 Respiratory rate 18 /min Zaira Mancilla SMELLER.TOOL PROFILING MACHINE SET UP OPERATOR Work Phone: [facility] 07-05-2022 13:00-0400 SaO2% (BldA) [Mass fraction] 97 % Zaira Mancilla SMELLER.TOOL PROFILING MACHINE SET UP OPERATOR Work Phone: [facility] 07-05-2022 13:00-0400 Systolic blood pressure 122 mm[Hg] Zaira Mancilla SMELLER.TOOL PROFILING MACHINE SET UP OPERATOR Work Phone: [facility] 06-12-2022 23:03-0400 Body mass index (BMI) [Ratio] 36.6 kg/m2 [facility] Work Phone: 06-06-2022 05:56-0400 Diastolic blood pressure 57 mm[Hg] [facility] Work Phone: 06-06-2022 05:56-0400 Heart rate 86 /min [facility] Work Phone: 06-06-2022 05:56-0400 Respiratory rate 18 /min [facility] Work Phone: 06-06-2022 05:56-0400 SaO2% (BldA) [Mass fraction] 95 % [facility] Work Phone: 06-06-2022 05:56-0400 Systolic blood pressure 111 mm[Hg] [facility] Work Phone: 06-05-2022 21:07-0400 Body temperature 96.7 [degF] [facility] Work Phone: 06-05-2022 15:48-0400 Body height 154.94 cm [facility] Work Phone: 06-05-2022 15:48-0400 Body mass index (BMI) [Ratio] 34.8 kg/m2 [facility] Work Phone: 06-05-2022 15:48-0400 Body weight 83.6 kg [facility] Work Phone: 05-12-2022 02:24-0400 Body mass index (BMI) [Ratio] 36.6 kg/m2 [facility] Work Phone: 04-12-2022 07:02-0400 Body mass index (BMI) [Ratio] 36.6 kg/m2 [facility] Work Phone: 04-10-2022 06:00-0400 Body temperature 98.9 [degF] [facility] Work Phone: 04-10-2022 06:00-0400 Diastolic blood pressure 76 mm[Hg] [facility] Work Phone: 04-10-2022 06:00-0400 Heart rate 114 /min [facility] Work Phone: 04-10-2022 06:00-0400 Respiratory rate 16 /min [facility] Work Phone: 04-10-2022 06:00-0400 SaO2% (BldA) [Mass fraction] 94 % [facility] Work Phone: 04-10-2022 06:00-0400 Systolic blood pressure 116 mm[Hg] [facility] Work Phone: 04-09-2022 15:46-0400 Body height 154.94 cm [facility] Work Phone: 04-09-2022 15:46-0400 Body mass index (BMI) [Ratio] 35.6 kg/m2 [facility] Work Phone: 04-09-2022 15:46-0400 Body weight 85.7 kg [facility] Work Phone: 03-27-2022 14:06-0400 Diastolic blood pressure 82 mm[Hg] Radha Batista APRN.TOOL PROFILING MACHINE SET UP OPERATOR Work Phone: [facility] 03-27-2022 14:06-0400 Heart rate 103 /min Radha Haagen SMELLER.TOOL PROFILING MACHINE SET UP OPERATOR Work Phone: [facility] 03-27-2022 14:06-0400 Respiratory rate 18 /min Radha Haagen SMELLER.TOOL PROFILING MACHINE SET UP OPERATOR Work Phone: [facility] 03-27-2022 14:06-0400 SaO2% (BldA) [Mass fraction] 98 % Radha Haagen SMELLER.TOOL PROFILING MACHINE SET UP OPERATOR Work Phone: [facility] 03-27-2022 14:06-0400 Systolic blood pressure 120 mm[Hg] Radha Haagen SMELLER.TOOL PROFILING MACHINE SET UP OPERATOR Work Phone: [facility] 03-12-2022 20:43-0400 Body mass index (BMI) [Ratio] 36.6 kg/m2 [facility] Work Phone: 02-10-2022 03:23-0400 Body mass index (BMI) [Ratio] 36.6 kg/m2 [facility] Work Phone: 01-30-2022 13:12-0400 Body weight 85.64 kg Radha Haagen SMELLER.TOOL PROFILING MACHINE SET UP OPERATOR Work Phone: [facility] 01-30-2022 13:12-0400 Diastolic blood pressure 78 mm[Hg] Radha Haagen SMELLER.TOOL PROFILING MACHINE SET UP OPERATOR Work Phone: [facility] 01-30-2022 13:12-0400 Heart rate 106 /min Radha Haagen SMELLER.TOOL PROFILING MACHINE SET UP OPERATOR Work Phone: [facility] 01-30-2022 13:12-0400 Respiratory rate 16 /min Radha Haagen SMELLER.TOOL PROFILING MACHINE SET UP OPERATOR Work Phone: [facility] 01-30-2022 13:12-0400 Systolic blood pressure 112 mm[Hg] Radha Haagen SMELLER.TOOL PROFILING MACHINE SET UP OPERATOR Work Phone: [facility] 01-14-2022 15:12-0400 Body weight 84.82 kg Aleksandar Jones MD Work Phone: [facility] 01-14-2022 15:12-0400 Diastolic blood pressure 68 mm[Hg] Aleksandar Jones MD Work Phone: [facility] 01-14-2022 15:12-0400 Heart rate 118 /min Aleksandar Jones MD Work Phone: [facility] 01-14-2022 15:12-0400 SaO2% (BldA) [Mass fraction] 95 % Aleksandar Jones MD Work Phone: [facility] 01-14-2022 15:12-0400 Systolic blood pressure 102 mm[Hg] Aleksandar Jones MD Work Phone: [facility] 01-11-2022 02:25-0400 Body mass index (BMI) [Ratio] 36.6 kg/m2 [facility] Work Phone: 12-11-2021 09:41-0500 Body mass index (BMI) [Ratio] 36.6 kg/m2 [facility] Work Phone: 12-11-2021 08:41-0500 Body mass index (BMI) [Ratio] 36.6 kg/m2 [facility] Work Phone: 11-13-2021 00:10-0500 Body mass index (BMI) [Ratio] 36.6 kg/m2 [facility] Work Phone: 10-14-2021 03:14-0500 Body mass index (BMI) [Ratio] 36.6 kg/m2 [facility] Work Phone: 09-12-2021 02:21-0500 Body mass index (BMI) [Ratio] 36.6 kg/m2 [facility] Work Phone: Encounters Encounter Date Encounter Type Care Provider Facility Start: 08-16-2025 ambulatory [facility] Facility:[facility] Start: 07-19-2025 ambulatory Aleksandar Jones Facility:[facility] Start: 07-12-2025 End: 07-12-2025 Patient encounter procedure Joselyn SCHAEFFER -[facility] Work Phone: Start: 07-12-2025 End: 07-12-[address] Aleksandar Jones MD Work Phone: [facility] Start: 06-28-2025 End: 06-28-2025 ambulatory ALEKSANDAR JONES Facility:[facility] Start: 06-28-2025 End: 06-28-2025 Patient encounter procedure Aleksandar Jones MD Work Phone: [facility] [place] Comment on above: GERD without esophag itis (Primary Dx); Epigastric pain; Venous insufficiency; Pure hypercholesterolemia; Water intoxication; Hyponatremia; Type 2 diabetes mellitus with diabetic nephropathy, with long-term current use of insulin ([facility]); Schizophreniform disorder, chronic condition ([facility]); LIDA (obstructive sleep apnea); SVT (supraventricular tachycardia) ([facility]); Edema, unspecified type; Tachycardia; Acute diastolic CHF (congestive heart failure) ([facility]); Obesity, Class II, BMI 35-39.9; Fatigue, unspecified type; Encounter for immunization; Medication monitoring encounter Start: 06-28-2025 End: 06-28-2025 ambulatory ALEKSANDAR JONES Facility:[facility] Start: 06-23-2025 ambulatory Basil Velasquez Facility :[facility] Start: 06-23-2025 Non-patient / Non-visit Basil Street mo DO -[facility] Start: 06-23-2025 End: 06-23-2025 Admission to same day surgery center Basil Velasquez DO -Endoscopy Work Phone: Start: 06-23-2025 End: 06-23-[address] Aleksandar Jones MD Work Phone: -Endoscopy Start: 06-21-2025 Registered Referred Aleksandar Jones -[facility] Work Phone: Start: 06-21-2025 End: 06-21-2025 ambulatory Aleksandar Jones Facility:[facility] Start: 06-03-2025 End: 06-03-2025 Telephone encounter Aleksandar Jones MD Work Phone: Family [facility] [place] Comment on above: Results Start: 05-24-2025 ambulatory [facility] Facility:[facility] Start: 05-24-2025 Registered Referred [facility] -[facility] Work Phone: Start: 05-19-2025 End: 06-08-2025 Telephone encounter Fuentes Renee MD Work Phone: Cardiology Comment on above: Cardiac Clearance Start: 05-11-2025 End: 05-11-2025 Telephone encounter Aleksandar Jones MD Work Phone: [facility] Comment on above: Statin Recommendatio n Start: 05-10-2025 End: 05-10-2025 Patient encounter procedure Joselyn SCHAEFFER -[facility] Work Phone: Start: 05-10-2025 End: 05-10-[address] Aleksandar Jones MD Work Phone: -[facility] Start: 05-06-2025 End: 05-06-[address] Koby Ramirez MD -Cat Scan [facility] Work Phone: Start: 05-06-2025 End: 05-06-[address] Aleksandar Jones MD Work Phone: -Cat Scan [facility] Start: 04-26-2025 Registered Referred [facility] Work Phone: Start: 04-26-2025 End: 04-26-2025 ambulatory [facility] Facility:[facility] Start: 04-11-2025 Registered Referred [facility] Work Phone: Start: 04-11-2025 End: 04-11-2025 ambulatory [facility] Facility:[facility] Start: 04-04-2025 End: 04-04-2025 Patient encounter procedure Fuentes Renee MD Work Phone: Cardiology Comment on above: Primary hypertension (Primary Dx); SVT (supraventricular tachycardia) (HCC) Start: 04-04-2025 End: 04-04-2025 [facility] Start: 03-29-2025 End: 04-05-2025 Follow-up encounter Aleksandar Jones MD Work Phone: [facility] Start: 03-29-2025 End: 03-29-2025 Subsequent hospital visit by physician Xr [facility] [place] Work Phone: Radiology Comment on above: Cough, unspecified t ype [R05.9] Start: 03-29-2025 End: 03-29-2025 ambulatory ALEKSANDAR Wojciech ROBERT Facility:[facility] Start: 03-29-2025 End: 03-29-2025 Patient encounter procedure Aleksandar Jones MD Work Phone: [facility] [place] Comment on above: Hyponatremia (Primar y Dx); Water intoxication; Type 2 diabetes mellitus with diabetic nephropathy, with long-term current use of insulin (HCC); Leukocytosis, unspecified type; Pure hypercholesterolemia; GERD without esophagitis; Schizophreniform disorder, chronic condition (HCC); Chronic obstructive pulmonary disease, unspecified COPD type ([facility]); LIDA (obstructive sleep apnea); Cough, unspecified type; Hepatitis B core antibody positive; History of CHF (congestive heart failure) Start: 03-29-2025 End: 03-29-2025 ambulatory ALEKSANDAR Jeffrey ROBERT Facility:[facility] Start: 03-28-2025 End: 03-28-[address] Aleksandar Jones MD Work Phone: [facility] Start: 03-28-2025 End: 03-28-2025 Departed Referred Aleksandar Jones [facility] Work Phone: Start: 03-28-2025 Registered Referred Aleksandar Jones [facility] Work Phone: Start: 03-28-2025 End: 03-28-2025 ambulatory Aleksandar Robert Facility:[facility] Start: 03-14-2025 End: 03-14-2025 Telephone encounter Aleksandar Jones MD Work Phone: [facility] [place] Comment on above: Letter Start: 03-01-2025 End: 03-01-[address] Aleksandar Jones MD Work Phone: [facility] Work Phone: Start: 03-01-2025 End: 03-01-2025 Departed Referred [facility] [place] Work Phone: Start: 03-01-2025 End: 03-01-2025 ambulatory [facility] Facility:[facility] Start: 02-25-2025 End: 03-16-2025 Telephone encounter Aleksandar Jones MD Work Phone: [facility] [place] Comment on above: Patient Update Start: 02-18-2025 End: 02-18-2025 Refill Aleksandar Jones MD Work Phone: [facility] [place] Comment on above: Refill Request Start: 02-10-2025 End: 02-11-2025 Telephone encounter [facility]: Forms Start: 02-10-2025 ambulatory [facility] Facility:[facility] Start: 02-02-2025 End: 02-09-[address] Lorraine Springer MD -Laboratory Work Phone: Start: 02-02-2025 End: 02-09-2025 ambulatory [facility] Facility:[facility] Start: 01-31-2025 End: 02-08-2025 Telephone encounter Aleksandar Jones MD Work Phone: [facility] [place] Start: 01-27-2025 End: 01-28-2025 Telephone encounter Aleksandar Jones MD Work Phone: [facility] [place] Comment on above: Forms Start: 01-25-2025 End: 01-25-2025 Refill Aleksandar Jones MD Work Phone: [facility] [place] Comment on above: Refill Request Start: 01-21-2025 End: 01-24-2025 Telephone encounter Aleksandar Jones MD Work Phone: [facility] [place] Comment on above: Forms Start: 01-20-2025 End: 03-22-2025 Follow-up encounter Aleksandar Jones MD Work Phone: Pulmonology [facility] Start: 01-19-2025 End: 01-19-2025 ambulatory ALEKSANDAR JONES Facility:[facility] Start: 01-19-2025 End: 01-19-2025 Subsequent hospital visit by physician Screen Mammo [facility] Comment on above: Encounter for screen ing mammogram for breast cancer [Z12.31] Start: 01-18-2025 End: 03-20-2025 Follow-up encounter Aleksandar Jones MD Work Phone: [facility] [place] Start: 01-18-2025 End: 01-18-2025 ambulatory ALEKSANDAR ROBERT Facility:[facility] Start: 01-18-2025 End: 01-18-2025 Subsequent hospital visit by physician Us [facility] Mob 2 Work Phone: Radiology Comment on above: Elevated liver enzym es [R74.8] Start: 01-14-2025 End: 01-14-2025 Follow-up encounter Radha Batista APRN.CNP Work Phone: [facility] [place] Start: 01-12-2025 End: 03-14-2025 Follow-up encounter Aleksandar Jones MD Work Phone: [facility] [place] Start: 01-12-2025 End: 01-12-2025 Telephone encounter Aleksandar Jones MD Work Phone: [facility] [place] Comment on above: Orders Start: 01-12-2025 End: 01-12-2025 ambulatory RADHA BATISTA Facility:[facility] Start: 01-12-2025 End: 01-12-2025 Patient encounter procedure Aleksandar Jones MD Work Phone: [facility] [place] Comment on above: Water intoxication ( Primary Dx); Vitamin D deficiency; Hepatitis B core antibody positive; Hyponatremia; Acute diastolic CHF (congestive heart failure) (HCC); Liver function test abnormality; Type 2 diabetes mellitus with diabetic nephropathy, with long-term current use of insulin (HCC) Start: 01-11-2025 End: 01-11-2025 [facility] Start: 01-05-2025 End: 01-05-2025 Patient encounter procedure Jey Brown MD Work Phone: Respiratory [place] [facility] Start: 01-05-2025 End: 01-12-2025 Telephone encounter Aleksandar Jones MD Work Phone: [facility] Comment on above: Patient Update Start: 01-04-2025 End: 01-04-[address] Lorraine Springer MD -Laboratory Work Phone: Start: 01-04-2025 End: 01-04-[address] Aleksandar Jones MD Work Phone: [facility] Work Phone: Start: 01-04-2025 End: 01-05-2025 Follow-up encounter Radha Batista APRN.TOOL PROFILING MACHINE SET UP OPERATOR [facility] Start: 01-04-2025 End: 01-12-2025 Telephone encounter Aleksandar Jones MD Work Phone: [facility] Comment on above: Results Start: 01-03-2025 End: 01-06-2025 Refill Aleksandar Jones MD Work Phone: [facility] Comment on above: Refill Request Start: 12-31-2024 End: 12-31-2024 Follow-up encounter Radha Batista APRN.TOOL PROFILING MACHINE SET UP OPERATOR Work Phone: [facility] Start: 12-30-2024 End: 12-31-2024 Refill Aleksandar Jones MD Work Phone: [facility] Comment on above: Refill Request Results Start: 12-29-2024 End: 02-28-2025 Follow-up encounter Aleksandar Jones MD Work Phone: [facility] [place] Start: 12-28-2024 End: 12-28-2024 ambulatory RADHA BATISTA Facility:[facility] Start: 12-28-2024 End: 12-28-2024 Patient encounter procedure Aleksandar Jones MD Work Phone: [facility] [place] Comment on above: COVID (Primary Dx); Acute diastolic CHF (congestive heart failure) (HCC); Pure hypercholesterolemia; SVT (supraventricular tachycardia) (HCC); Chronic obstructive pulmonary disease, unspecified COPD type (HCC); LIDA (obstructive sleep apnea); Gastritis without bleeding, unspecified chronicity, unspecified gastritis type; Water intoxication; Type 2 diabetes mellitus with diabetic nephropathy, with long-term current use of insulin ([facility]); Vitamin D deficiency; Obesity, Class II, BMI [...] 12-10-2024 Refill Aleksandar Jones MD Work Phone: [facility] Comment on above: Refill Request Start: 12-07-2024 End: 12-08-2024 Follow-up encounter Radha Batista APRN.CNP Work Phone: [facility] [place] Start: 12-07-2024 End: 12-07-2024 Subsequent hospital visit by physician Xr [facility] [place] Work Phone: Radiology Comment on above: Bacterial pneumonia [J15.9] Start: 12-07-2024 End: 12-07-2024 ambulatory RADHA BATISTA Facility:[facility] Start: 12-07-2024 End: 12-07-2024 Office outpatient visit 25 minutes Radha Batista APRN.CNP Work Phone: [facility] [place] Comment on above: Leg pain, bilateral (Primary Dx); Bacterial pneumonia Start: 12-03-2024 End: 02-02-2025 Follow-up encounter Radha Batista APRN.CNP Work Phone: [facility] [place] Start: 12-03-2024 End: 12-03-2024 Telephone encounter Radha Batista APRN.CNP Work Phone: [facility] [place] Comment on above: Results Start: 12-01-2024 End: 12-01-2024 ambulatory [facility] Facility:[facility] Start: 11-29-2024 End: 11-29-2024 Telephone encounter Aleksandar oJnes MD Work Phone: [facility] [place] Comment on above: Appointment Start: 11-25-2024 End: 11-25-2024 Refill Aleksandar Jones MD Work Phone: [facility] [place] Comment on above: Refill Request Start: 2024 End: 2024 Refill Aleksandar Jones MD Work Phone: [address] [place] [address] Comment on above: Refill Request Start: 11-12-2024 Non-patient / Non-visit Dr. Neela Lebron [facility] Work Phone: Start: 11-11-2024 Non-patient / Non-visit Dr. Neela Lebron [facility] Work Phone: Start: 11-10-2024 Non-patient / Non-visit Dr. Neela Lebron [facility] Work Phone: Start: 11-10-2024 End: 11-10-2024 Telephone encounter Aleksandar Jones MD Work Phone: [facility] [place] Start: 11-09-2024 End: 11-12-2024 Evaluation and management of inpatient Dr. Ana Lilia Lebron [facility] Work Phone: Start: 11-09-2024 End: 11-09-2024 Subsequent hospital visit by physician Radha [facility] [place] Work Phone: Radiology Comment on above: Acute cough [R05.1] Start: 11-09-2024 End: 11-09-2024 ambulatory ALEKSANDAR JONES Facility:[facility] Start: 11-09-2024 End: 11-09-2024 Patient encounter procedure Zaira Mancilla SMELLER.TOOL PROFILING MACHINE SET UP OPERATOR Work Phone: [facility] Comment on above: Pneumonia of right l lisbeth due to infectious organism, unspecified part of lung (Primary Dx); Fever, unspecified fever cause; Acute cough; URI, acute Start: 11-05-2024 End: 11-09-2024 Telephone encounter Radha Batista APRN.TOOL PROFILING MACHINE SET UP OPERATOR Work Phone: [facility] [place] Comment on above: Results Start: 11-02-2024 End: 11-02-2024 Subsequent hospital visit by physician Xr [facility] [place] Work Phone: Radiology Comment on above: Weakness of both low er extremities [R29.898] Start: 11-02-2024 End: 11-02-2024 ambulatory [facility] Facility:[facility] Start: 11-02-2024 End: 11-02-2024 Office outpatient visit 25 minutes Radha Batista APRN.TOOL PROFILING MACHINE SET UP OPERATOR Work Phone: [facility] [place] Comment on above: Weakness of both low er extremities (Primary Dx); Uncontrolled type 2 diabetes mellitus with hyperglycemia (HCC); Hyperlipidemia, unspecified hyperlipidemia type; Leg pain, bilateral Start: 11-02-2024 End: 11-02-2024 ambulatory [facility] Facility:[facility] Start: 10-29-2024 End: 10-29-2024 Refill Aleksandar Jones MD Work Phone: [facility] [place] Comment on above: Refill Request Start: 10-14-2024 End: 10-14-2024 Emergency department patient visit Dr. Tae Holland DO -Emergency Department Work Phone: Start: 10-14-2024 End: 10-14-[address] Lorraine Springer MD -Laboratory Work Phone: Start: 10-14-2024 End: 10-14-2024 [facility] Start: 10-04-2024 End: 10-04-2024 Refill [facility]ks[facility]ar Jones MD [facility] Comment on above: Refill Request Start: 09-28-2024 End: 09-28-2024 Office outpatient visit 25 minutes Radha Batista APRN.TOOL PROFILING MACHINE SET UP OPERATOR Work Phone: [facility] [place] Comment on above: Leg pain, bilateral (Primary Dx) Start: 09-28-2024 End: 09-28-2024 ambulatory ALEKSANDAR JONES Facility:[facility] Start: 09-24-2024 End: 09-24-2024 Refill Aleksandar Jones MD Work Phone: [facility] [place] Comment on above: Refill Request Start: 09-20-2024 End: 09-20-2024 ambulatory ALEKSANDAR JONES Facility:[facility] Start: 09-20-2024 End: 09-20-2024 Patient encounter procedure Fuentes Renee MD Work Phone: Cardiology Comment on above: Primary hypertension (Primary Dx); Pure hypercholesterolemia; SVT (supraventricular tachycardia) (HCC); Tachycardia Start: 09-16-2024 End: 09-16-[address] Lorraine Springer MD -Laboratory Work Phone: Start: 09-16-2024 End: 09-16-2024 [facility] Start: 09-08-2024 End: 09-08-2024 Office outpatient visit 25 minutes Radha Batista APRN.CNP Work Phone: [facility] [place] Comment on above: Chronic obstructive pulmonary disease, unspecified COPD type (HCC) (Primary Dx); Leg pain, bilateral; Encounter for immunization Start: 09-08-2024 End: 09-08-2024 ambulatory ALEKSANDAR JONES Facility:[facility] Start: 08-31-2024 End: 08-31-2024 Refill Aleksandar Jones MD Work Phone: [facility] Comment on above: Refill Request Start: 08-25-2024 End: 09-11-[address] Lorraine Springer MD -Laboratory Work Phone: Start: 08-25-2024 End: 09-11-2024 ambulatory Shelia Suppan Facility:[facility] Start: 08-24-2024 End: 08-24-2024 ambulatory SHELIA A SUPPAN Facility:[facility] Start: 08-24-2024 End: 08-24-2024 Office outpatient visit 15 minutes Shelia A Suppan SMELLER.TOOL PROFILING MACHINE SET UP OPERATOR Work Phone: [facility] [place] Comment on above: LIDA (obstructive sle ep apnea) (Primary Dx); Acute exacerbation of chronic obstructive pulmonary disease (COPD) (HCC); Tachycardia; Tinea cruris Start: 08-20-2024 End: 08-20-2024 Refill Aleksandar Jones MD Work Phone: [facility] [place] Comment on above: Refill Request Start: 08-18-2024 End: 08-18-2024 Telephone encounter Aleksandar Jones MD Work Phone: [facility] [place] Comment on above: Medication Problem Start: 08-16-2024 End: 08-16-2024 Telephone encounter Aleksandar Jones MD Work Phone: [facility] [place] Comment on above: Medication Request ( Cough drops) Start: 08-06-2024 End: 08-06-2024 Refill Aleksandar Jones MD Work Phone: [facility] [place] Comment on above: Refill Request Start: 07-31-2024 End: 07-31-2024 ambulatory Barbara Dickens RN NURSE FURNACE MASON Comment on above: Information Start: 07-31-2024 End: 07-31-2024 Patient encounter procedure Malcolm Abreu RN NURSE ON JAZLYN L Comment on above: Clinical Update Start: 07-31-2024 End: 07-31-2024 Telephone encounter Aleksandar Jones MD Work Phone: [facility] [place] Comment on above: took another group h ome patient s medications Start: 07-29-2024 End: 07-29-2024 Refill Aleksandar Jones MD Work Phone: [facility] [place] Comment on above: Refill Request Start: 07-23-2024 End: 07-23-2024 ambulatory ALEKSANDAR JONES Facility:[facility] Start: 07-23-2024 End: 07-23-2024 Office outpatient visit 15 minutes Adriano Menezes SMELLER.TOOL PROFILING MACHINE SET UP OPERATOR Work Phone: [facility] Comment on above: Pain of right eye (P rimary Dx) Start: 07-22-2024 End: 07-22-2024 Telephone encounter Aleksandar Jones MD Work Phone: [facility] [place] Comment on above: Patient Question Start: 07-14-2024 End: 07-14-2024 Telephone encounter Aleksandar Jones MD Work Phone: [facility] [place] Comment on above: Medication issue Start: 07-09-2024 End: 07-09-2024 Refill Aleksandar Jones MD Work Phone: [facility] [place] Comment on above: Refill Request Start: 07-06-2024 End: 07-06-2024 Office outpatient visit 25 minutes Radha kevin WELLS Work Phone: [facility] [place] Comment on [...] Start: 07-06-2024 End: 07-06-2024 ambulatory RADHA BATISTA Facility:[facility] Start: 06-23-2024 End: 06-28-2024 ambulatory Aleksandar Jones MD Work Phone: Internal Medicine [place] [id number] Start: 06-17-2024 End: 06-17-2024 Refill Aleksandar Jones MD Work Phone: [facility] [place] Comment on above: Refill Request Start: 06-11-2024 End: 06-16-2024 Refill Fuentes Renee MD Work Phone: Cardiology Comment on above: Refill Request Start: 06-09-2024 End: 06-09-2024 Refill Aleksandar Jones MD Work Phone: [facility] [place] Comment on above: Refill Request Start: 05-19-2024 Telephone encounter Aleksandar Jones MD Work Phone: [facility] [place] Comment on above: Patient Question Start: 05-18-2024 Refill Aleksandar Jones MD Work Phone: [facility] Comment on above: Refill Request Start: 05-03-2024 Refill Aleksandar Jones MD Work Phone: [facility] Comment on above: Refill Request Medication Problem Start: 04-16-2024 Refill Aleksandar Jones MD Work Phone: [facility] [place] Comment on above: Refill Request Start: 04-14-2024 End: 04-14-2024 Office outpatient visit 25 minutes Radha Batista APRN.TOOL PROFILING MACHINE SET UP OPERATOR Work Phone: [facility] Comment on above: Folliculitis (Primar y Dx); Fatigue, unspecified type Start: 04-01-2024 End: 04-01-2024 ambulatory Long Golias PT Work Phone: [facility] Comment on above: Weakness of both low er extremities (Primary Dx) Start: 03-30-2024 End: 03-30-2024 ambulatory Long Golias PT Work Phone: [facility] Comment on above: Weakness of both low er extremities (Primary Dx) Start: 03-30-2024 End: 03-30-2024 Office outpatient visit 15 minutes Radha Batista APRN.TOOL PROFILING MACHINE SET UP OPERATOR Work Phone: [facility] Comment on above: Uncontrolled type 2 diabetes mellitus with hyperglycemia (HCC) (Primary Dx) Start: 03-25-2024 End: 03-25-2024 ambulatory Jaci Ericksonba WORKFORCE INVESTMENT ACT CAREER MANAGER Work Phone: [facility] Comment on above: Weakness of both low er extremities (Primary Dx) Start: 03-23-2024 End: 03-23-2024 ambulatory Long Golias PT Work Phone: [facility] Comment on above: Weakness of both low er extremities (Primary Dx) Start: 03-19-2024 Refill Aleksandar Jones MD Work Phone: [facility] Comment on above: Refill Request Start: 03-19-2024 End: 03-19-2024 Office outpatient visit 25 minutes Radha Batista APRN.TOOL PROFILING MACHINE SET UP OPERATOR Work Phone: [facility] Comment on above: Uncontrolled type 2 diabetes mellitus with hyperglycemia (HCC) (Primary Dx); Thrombocytopenia (HCC); Elevated liver enzymes Start: 03-18-2024 Telephone encounter Aleksandar Jones MD Work Phone: Pul[facility] Comment on above: Patient Update Start: 03-18-2024 End: 03-18-2024 ambulatory Jaci Almendarezba WORKFORCE INVESTMENT ACT CAREER MANAGER Work Phone: [facility] Comment on above: Weakness of both low er extremities (Primary Dx); Leg weakness, bilateral Start: 03-16-2024 End: 03-16-2024 ambulatory Long Golias PT Work Phone: [facility] Comment on above: Weakness of both low er extremities (Primary Dx) Start: 03-12-2024 Telephone encounter Rolf Herrera DO Work Phone: Internal Medicine [place] Comment on above: Patient Update (Call from nurse on-call last evening on March 11 regarding hyperglycemia) Start: 03-05-2024 Telephone encounter Radha brown APRN.TOOL PROFILING MACHINE SET UP OPERATOR Work Phone: [facility] Comment on above: Results Start: 03-04-2024 End: 03-04-2024 ambulatory Jaci Brady WORKFORCE INVESTMENT ACT CAREER MANAGER Work Phone: [facility] Comment on above: Weakness of both low er extremities (Primary Dx) Start: 03-02-2024 End: 03-02-2024 ambulatory Long Golias PT Work Phone: [facility] Comment on above: Leg weakness, bilate ral (Primary Dx); Weakness of both lower extremities Start: 03-02-2024 End: 03-02-2024 Office outpatient visit 25 minutes Radha Batista APRN.TOOL PROFILING MACHINE SET UP OPERATOR Work Phone: [facility] Comment on above: Fatigue, unspecified type (Primary Dx); Pain in both lower extremities; Type 2 diabetes mellitus with diabetic nephropathy, with long-term current use of insulin (HCC) Start: 02-26-2024 End: 02-26-2024 ambulatory Long Golias PT Work Phone: [facility] Comment on above: Leg weakness, bilate ral (Primary Dx) Start: 02-24-2024 End: 02-24-2024 ambulatory Jaci Kashuba WORKFORCE INVESTMENT ACT CAREER MANAGER Work Phone: [facility] Comment on above: Leg weakness, bilate ral (Primary Dx) Refill Request Start: 02-19-2024 End: 02-19-2024 ambulatory Long Golias PT Work Phone: [facility] Comment on above: Leg weakness, bilate ral (Primary Dx) Start: 02-17-2024 End: 02-17-2024 ambulatory Jaci Bhargavhuba WORKFORCE INVESTMENT ACT CAREER MANAGER Work Phone: [facility] Comment on above: Leg weakness, bilate ral (Primary Dx) Start: 02-12-2024 End: 02-12-2024 ambulatory Jaci Almendarezba WORKFORCE INVESTMENT ACT CAREER MANAGER Work Phone: [facility] Comment on above: Leg weakness, bilate ral (Primary Dx) Start: 02-10-2024 End: 02-10-2024 ambulatory Long Golias PT Work Phone: [facility] Comment on above: Leg weakness, bilate ral (Primary Dx) Start: 02-05-2024 End: 02-05-2024 ambulatory Jaci Almendarezba WORKFORCE INVESTMENT ACT CAREER MANAGER Work Phone: [facility] Comment on above: Leg weakness, bilate ral (Primary Dx) Start: 02-04-2024 Telephone encounter Aleksandar Jones MD Work Phone: [facility] [place] Comment on above: Insurance Authorizat ion (Lantus solostar ) Start: 02-03-2024 End: 02-10-2024 Discharged Recurring [facility]-Laboratory Work Phone: Start: 02-03-2024 End: 02-10-2024 ambulatory Long Golias PT Work Phone: [facility] Comment on above: Leg weakness, bilate ral (Primary Dx) Start: 01-29-2024 Refill Aleksandar Jones MD Work Phone: [facility] Comment on above: Refill Request Start: 01-21-2024 End: 01-21-2024 ambulatory Long Davis PT Work Phone: [facility] Comment on above: Leg weakness, bilate ral Start: 01-13-2024 End: 01-13-2024 Office outpatient visit 25 minutes Radha Batista APRN.TOOL PROFILING MACHINE SET UP OPERATOR Work Phone: [facility] Comment on above: Acute constipation ( Primary Dx); Nasal dryness; Pain in both lower extremities; Leg weakness, bilateral; Sedative, hypnotic or anxiolytic dependence, uncomplicated (HCC); Acute respiratory failure with hypoxia (HCC); Chronic obstructive pulmonary disease, unspecified COPD type ([facility]); SVT (supraventricular tachycardia) ([facility]) Start: 01-07-2024 End: 01-10-2024 ambulatory [facility] Work Phone: Start: 01-07-2024 End: 01-10-2024 Discharged Recurring [facility]-Laboratory Work Phone: Start: 12-13-2023 End: 12-14-2023 Emergency department patient visit Dr. Aleksandar Jones Work Phone: [facility]-Emergency Department Work Phone: Start: 12-02-2023 Refill Aleksandar Jones MD Work Phone: [facility] Comment on above: Refill Request Start: 11-20-2023 Telephone encounter Meredith Carroll martir SMELLERMeghanTOOL PROFILING MACHINE SET UP OPERATOR Work Phone: [facility] Comment on above: Results (Labs ) Start: 11-19-2023 End: 12-11-[address] Aleksandar Jones Work Phone: [facility] Work Phone: Start: 11-19-2023 End: 12-11-[address] Aleksandar Jones Work Phone: [facility]-Laboratory Work Phone: Start: 10-24-2023 End: 10-24-[address] Aleksandar Jones Work Phone: [facility] Work Phone: Start: 10-24-2023 End: 10-24-[address] Aleksandar Jones Work Phone: [facility]-Radiology, [facility] Work Phone: Start: 10-22-2023 End: 10-22-[address] Aleksandar Jones Work Phone: [facility] Work Phone: Start: 10-22-2023 End: 10-22-[address] [facility] Start: 10-22-[address] Andrew Jones Work Phone: [facility]-Laboratory Work Phone: Start: 09-22-2023 End: 09-22-2023 Patient encounter procedure Fuentes Renee MD Work Phone: Cardiology Comment on above: Primary hypertension (Primary Dx); Pure hypercholesterolemia; SVT (supraventricular tachycardia) Start: 09-17-2023 End: 10-12-[address] [facility] Start: 09-10-2023 Refill Aleksandar Jones MD Work Phone: [facility] Comment on above: Refill Request Start: 09-09-2023 Telephone encounter Aleksandar Jones MD Work Phone: [facility] Comment on above: Medication Problem ( Test strips and lancets) Start: 08-31-2023 Telephone encounter Alma brown APRN.CNP Work Phone: [facility] Comment on above: Results Start: 08-29-2023 End: 08-29-2023 Patient encounter procedure Alma Ac APRN.TOOL PROFILING MACHINE SET UP OPERATOR Work Phone: OB/Gynecology Comment on above: Itching in the vagin al area (Primary Dx) Start: 08-28-2023 Refill Aleksandar Jones MD Work Phone: [facility] Comment on above: Refill Request Start: 08-20-2023 Telephone encounter Aleksandar Jones MD Work Phone: [facility] Comment on above: Refill Request; Medi cation Problem Start: 08-19-2023 Telephone encounter Aleksandar Jones MD Work Phone: [facility] Comment on above: Elevated Blood Sugar Start: 08-19-2023 End: 09-11-[address] Aleksandar Jones Work Phone: [facility] Work Phone: Start: 08-19-2023 End: 09-11-[address] Aleksandar Jones Work Phone: [facility]-Laboratory Work Phone: Start: 08-16-2023 Non-patient / Non-visit Dr. Julio Cesar Jones Work Phone: [facility] Work Phone: Start: 08-15-2023 Non-patient / Non-visit Dr. Julio Cesar Jones Work Phone: [facility] Work Phone: Start: 08-14-2023 Non-patient / Non-visit Dr. Julio Cesar Jones Work Phone: [facility] Work Phone: Start: 08-14-2023 End: 08-16-2023 Evaluation and management of inpatient Dr. Aleksandar Jones Work Phone: [facility]-Progressive Care Unit Work Phone: Start: 08-12-2023 Refill Aleksandar Jones MD Work Phone: [facility] Comment on above: Refill Request Start: 07-17-2023 End: 07-17-[address] [facility] Start: 07-16-2023 ambulatory Aleksandar Jones MD Work Phone: Internal Medicine [facility] [place] Start: 07-15-2023 Refill Fuentes Renee MD Work Phone: Cardiology Comment on above: Refill Request Start: 06-18-2023 End: 06-18-2023 Refill Aleksandar Jones MD Work Phone: [facility] Comment on above: Refill Request Start: 06-18-2023 End: 06-18-[address] [facility] Start: 05-27-2023 Refill Aleksandar Jones MD Work Phone: [facility] Comment on above: Refill Request Start: 05-26-2023 Telephone encounter Radha brown APRN.TOOL PROFILING MACHINE SET UP OPERATOR Work Phone: [facility] Comment on above: Results Start: 05-26-2023 End: 05-26-2023 Nursing evaluation of patient and report Nurse Card Admin [facility] Work Phone: Cardiology Comment on above: Tachycardia (Primary Dx) Start: 05-26-2023 End: 05-26-2023 Subsequent hospital visit by physician Injection [facility] Work Phone: Nuclear Medicine Comment on above: Chest pain, unspecif ied type [R07.9] Start: 05-23-2023 Refill Aleksandar Jones MD Work Phone: [facility] Comment on above: Refill Request Start: 05-20-2023 End: 05-20-2023 ambulatory [facility] Work Phone: Start: 05-20-2023 End: 05-20-[address] [facility] Start: 05-08-2023 Telephone encounter Aleksandar Jones MD Work Phone: [facility] Comment on above: Results Start: 05-05-2023 End: 05-12-2023 ambulatory [facility] Work Phone: Start: 05-05-2023 End: 05-12-2023 Discharged Recurring [facility]-Laboratory Work Phone: Start: 04-30-2023 End: 04-30-2023 ambulatory [facility] Work Phone: Start: 04-30-2023 End: 04-30-2023 Patient encounter procedure [facility]-Cat Scan, [facility] Work Phone: Start: 04-29-2023 End: 04-29-2023 Office outpatient visit 40 minutes Radha Batista APRN.TOOL PROFILING MACHINE SET UP OPERATOR Work Phone: [facility] Comment on above: Chest pain, unspecif ied type (Primary Dx); Weight loss; Type 2 diabetes mellitus with diabetic nephropathy, with long-term current use of insulin ([facility]); Hyperlipidemia, unspecified hyperlipidemia type; GERD without esophagitis; Acute diastolic CHF (congestive heart failure) ([facility]); Schizophreniform disorder, chronic condition ([facility]); Fatigue, unspecified type Start: 03-17-2023 End: 03-17-2023 [facility] Work Phone: Start: 03-17-2023 End: 03-17-[address] [facility] Start: 02-26-2023 Refill Radha Batista APRN.TOOL PROFILING MACHINE SET UP OPERATOR Work Phone: [facility] Comment on above: Refill Request Start: 02-17-2023 End: 03-12-2023 ambulatory [facility] Work Phone: Start: 02-17-2023 End: 03-12-2023 Discharged Recurring [facility]-Laboratory Start: 02-14-2023 Refill Aleksandar Jones MD Work Phone: [facility] Comment on above: Refill Request Start: 01-30-2023 Refill Aleksandar Jones MD Work Phone: [facility] Comment on above: Refill Request Start: 01-15-2023 End: 02-09-2023 ambulatory [facility] Work Phone: Start: 01-15-2023 End: 02-09-2023 Discharged Recurring [facility]-Laboratory Start: 12-16-2022 End: 01-10-2023 [facility] Work Phone: Start: 12-16-2022 End: 01-10-2023 Discharged Recurring [facility]-Laboratory Start: 12-09-2022 Refill Aleksandar Jones MD Work Phone: [facility] Comment on above: Refill Request Start: 11-19-2022 End: 11-19-2022 ambulatory [facility] Work Phone: Start: 11-19-2022 End: 11-19-2022 Discharged Recurring [facility]Laboratory Start: 10-17-2022 End: 10-17-2022 ambulatory [facility] Work Phone: Start: 10-17-2022 End: 10-17-2022 Discharged Recurring [facility]Laboratory Start: 10-08-2022 Refill Aleksandar Jones MD Work Phone: [facility] Comment on above: Refill Request Start: 10-04-2022 Refill Aleksandar Jones MD Work Phone: [facility] Comment on above: Refill Request Start: 09-19-2022 End: 09-19-2022 ambulatory [facility] Work Phone: Start: 09-19-2022 End: 09-19-2022 Discharged Recurring [facility]-Laboratory Start: 09-11-2022 Refill Aleksandar Jones MD Work Phone: [facility] Comment on above: Refill Request Start: 08-30-2022 Refill Aleksandar Jones MD Work Phone: [facility] Comment on above: Refill Request Start: 08-28-2022 End: 08-28-2022 Office outpatient visit 25 minutes Radha Batista APRN.TOOL PROFILING MACHINE SET UP OPERATOR Work Phone: [facility] Comment on above: Type 2 diabetes mendel itus with diabetic nephropathy, with long- term current use of insulin (HCC) (Primary Dx); Schizophreniform disorder, chronic condition (HCC); Hyperlipidemia, unspecified hyperlipidemia type; LIDA (obstructive sleep apnea); Rosacea; Upper back pain; Gassiness Start: 08-19-2022 Refill Aleksandar Jones MD Work Phone: [facility] Comment on above: Refill Request Start: 08-15-2022 End: 09-11-2022 Refill Aleksandar Jones MD Work Phone: [facility] Comment on above: Refill Request Start: 08-15-2022 End: 09-11-2022 Discharged [facility]Laboratory Start: 08-13-2022 Refill Fuentes Renee MD Work Phone: Cardiology Comment on above: Refill Request Start: 08-08-2022 End: 08-08-2022 Patient encounter procedure Zaira Mancilla APRN.TOOL PROFILING MACHINE SET UP OPERATOR Work Phone: [facility] Comment on above: Conjunctivitis of le ft eye, unspecified conjunctivitis type (Primary Dx); Facial infection Start: 08-07-2022 ambulatory Aleksandar Jones MD Work Phone: Internal Medicine [facility] [place] Start: 07-23-2022 End: 07-23-2022 Discharged [facility]Laboratory Start: 07-05-2022 End: 07-05-2022 Patient encounter procedure Zaira Mancilla APRN.TOOL PROFILING MACHINE SET UP OPERATOR Work Phone: [facility] Comment on above: Injury of toenail of right foot, initial encounter (Primary Dx) Start: 06-20-2022 Refill Aleksandar Jones MD Work Phone: [facility] Comment on above: Refill Request Start: 06-19-2022 End: 06-19-2022 ambulatory [facility] Work Phone: Start: 06-19-2022 End: 06-19-[address] [facility] Start: 06-05-2022 End: 06-06-2022 Emergency department patient visit [facility]-Emergency Department Start: 05-17-2022 End: 05-17-2022 ambulatory [facility] Work Phone: Start: 05-17-2022 End: 05-17-[address] [facility] Start: 05-17-2022 [facility] Start: 05-08-2022 Refill Aleksandar Jones MD Work Phone: [facility] [place] Comment on above: Refill Request Start: 05-07-2022 Telephone encounter Aleksandar Jones MD Work Phone: [facility] [place] Comment on above: Patient Question Start: 05-02-2022 Refill Aleksandar Jones MD Work Phone: [facility] [place] Comment on above: Refill Request Start: 04-18-2022 End: 04-18-2022 Patient encounter procedure [facility]-Cat Scan, [facility] Start: 04-17-2022 End: 05-12-[address] [facility] Start: 04-17-2022 [facility] Start: 04-09-2022 End: 04-10-2022 [facility] Start: 03-27-2022 End: 03-27-2022 Office outpatient visit 15 minutes Radha Batista APRN.CNP Work Phone: [facility] [place] Comment on above: Skin irritation (Moraima malcolm Dx); Rosacea Start: 03-27-2022 Refill Aleksandar Jones MD Work Phone: [facility] [place] Comment on above: Refill Request Start: 03-20-2022 End: 03-20-[address] [facility] Start: 03-20-2022 [facility] Start: 02-13-2022 End: 02-13-[address] [facility] Start: 01-30-2022 End: 01-30-2022 Patient encounter procedure Radha Batista SMELLER.TOOL PROFILING MACHINE SET UP OPERATOR Work Phone: [facility] [facility] Comment on above: Right hip pain (Prim robin Dx) Start: 01-29-2022 Telephone encounter Aleksandar Jones MD Work Phone: [facility] Comment on above: Medication Request Start: 01-14-2022 End: 01-14-2022 Refill Aleksandar Jones MD Work Phone: [facility] Comment on above: Refill Request Tachycardia (Primary Dx); SVT (supraventricular tachycardia) (HCC); Acute diastolic CHF (congestive heart failure) (HCC); Chronic obstructive pulmonary disease, unspecified COPD type (HCC); LIDA (obstructive sleep apnea); Water intoxication; Type 2 diabetes mellitus with diabetic nephropathy, with long-term current use of insulin ([facility]); Schizophreniform disorder, chronic condition ([facility]); Vitamin D deficiency; Advance care planning Start: 01-14-2022 End: 01-14-2022 Discharged Recurring [facility] Start: 01-11-2022 Refill Aleksandar Jones MD Work Phone: [facility] Comment on above: Refill Request Start: 12-13-2021 End: 01-10-2022 Discharged Recurring [facility] Start: 11-20-2021 End: 11-20-2021 Discharged Recurring [facility] Start: 10-16-2021 End: 11-12-2021 Discharged Recurring [facility] Start: 09-24-2021 End: 10-13-2021 Discharged Recurring [facility] Start: 07-19-2021 End: 07-19-2021 Subsequent hospital visit by physician [facility] Work Phone: Radiology Comment on above: Behavioral change [R 46.89] Start: 10-18-2020 End: 10-18-2020 Subsequent hospital visit by physician [facility] Work Phone: Radiology Comment on above: SOB (shortness of br eath) [R06.02] Start: 06-08-2018 [facility] KIMBERLY MONIQUE Facility :[facility] Start: 11-27-2017 End: 11-27-2017 Ambulatory KIMBERLY AMAYA Facility:[facility] Start: 08-29-2009 End: 11-26-2011 Patient encounter status Long Davis PT Work Phone: [facility] Work Phone: Procedures Date Procedure Procedure [...] exam ches t 2 views Radha Batista SMELLER.TOOL PROFILING MACHINE SET UP OPERATOR Work Phone: Start: 11-12-2024 Plain chest X-ray [...] exam ches t 2 views Zaira Mancilla SMELLER.TOOL PROFILING MACHINE SET UP OPERATOR Work Phone: Start: 11-09-2024 INFLUENZA A&B MOLECU LAR (POC) [facility] Provider Start: 11-09-[address] Andrew Jones MD Work Phone: Start: 11-09-2024 SARS-CoV-2, Influenz a & RSV (PCR) Dr. Aleksandar Jones MD Work Phone: Start: 11-02-2024 Radex spine lumbosac ral 2/3 views Radha Batista SMELLER.TOOL PROFILING MACHINE SET UP OPERATOR Work Phone: Start: 10-14-2024 Plain chest X-ray Dr. Melanie Jones MD Work Phone: Start: 10-14-2024 SARS-CoV-2, Influenz a & RSV (PCR) Dr. Aleksandar Jones MD Work Phone: Start: 09-20-2024 Ecg routine ecg w/le ast 12 lds i&r only Fuentes Renee MD Work Phone: Start: 07-06-2024 PFIZER-BIONTECH COVI D-19 VACCINE AGE 12+ YR Radha Batista SMELLER.TOOL PROFILING MACHINE SET UP OPERATOR Work Phone: Start: 12-13-2023 Computed tomography of [...] Myocardial spect mul tiple studies Radha Batista SMELLER.TOOL PROFILING MACHINE SET UP OPERATOR Work Phone: Start: 04-30-2023 CT of chest Start: 04-18-2022 CT of chest Start: 01-14-2022 Adult depression scr eening assessment Aleksandar Jones MD Work Phone: Start: 07-19-2021 Radiologic exam ches t 2 views Aleksandar Jones MD Work Phone: Start: 06-27-2021 Mammography Aleksandar Anaya MD Work Phone: Start: 10-18-2020 Radiologic exam ches t 2 views Maria L Cedeno SMELLER.TOOL PROFILING MACHINE SET UP OPERATOR Work Phone: Start: 08-05-2019 Adult depression scr eening assessment Aleksandar Jones MD Work Phone: Start: 12-19-2016 Colonoscopy Aleksandar Anaya MD Work Phone: Viral antigen assay Plan of Treatment Date Care Activity Detail Author Start: 06-23-2035 Screening for malignant neoplasm of colon [facility] Start: 07-18-2028 Urine microalbumin profile DTaP,Tdap,Td Vaccine (3 - Td or Tdap) [facility] Start: 12-19-2026 Colonoscopy COLONOSCOPY [facility] Start: 12-19-2026 COLORECTAL CANCER SCREENING COLORECTAL CANCER SCREENING [facility] Start: 12-19-2026 Screening for malignant neoplasm of colon [facility] Start: 06-28-2026 Annual PCP Team Chronic Disease Visit Annual PCP Team Chronic Disease Visit [facility] Start: 06-28-2026 Shingrix Vaccine (2 of 2) Shingrix Vaccine (2 of 2) [facility] Comment on above: Postponed from 02/03/2024 (Declined at t his time) Start: 05-06-2026 Screening for malignant neoplasm of lung Lung Cancer Screening [facility] Start: 04-03-2026 End: 04-03-2026 Patient encounter procedure 04/03/2026 1:20 PM EDT Office Visit Cardiology [address] [place] [address] Fuentes Renee MD [address] [facility], [address] [place], [place] [id number] 1 year follow up Cardiology Comment on above: 1 year follow up Start: 03-29-2026 Annual PCP Team Chronic Disease Visit Annual PCP Team Chronic Disease Visit [facility] Start: 01-24-2026 HPV TESTING HPV TESTING [facility] Start: 01-24-2026 PAP TESTING PAP TESTING [facility] Start: 01-24-2026 Screening for malignant neoplasm of cervix [facility] Start: 01-19-2026 Screening for malignant neoplasm of breast Mammogram Screening [facility] Start: 01-12-2026 Annual PCP Team Chronic Disease Visit Annual PCP Team Chronic Disease Visit [facility] Start: 01-12-2026 BP Controlled (<130/80) BP Controlled (<130/80) [facility] Start: 12-28-2025 Annual PCP Team Chronic Disease Visit Annual PCP Team Chronic Disease Visit [facility] Start: 12-28-2025 BP Controlled (<130/80) BP Controlled (<130/80) [facility] Start: 12-28-2025 HIV screening HIV Screening [facility] Comment on above: Postponed from 1981 (Declined at t his time) Start: 12-28-2025 End: 12-28-2025 Patient encounter procedure 12/28/2025 10:20 AM EDT Office Visit Family [facility] [address] [place] [address] Aleksandar Jones MD [address] [place] [place] [address] physical 6 months [facility] Comment on above: physical 6 months Start: 12-26-2025 Hemoglobin A1c measurement HbA1C [facility] Start: 12-07-2025 Annual PCP Team Chronic Disease Visit Annual PCP Team Chronic Disease Visit [facility] Start: 12-07-2025 BP Controlled (<130/80) BP Controlled (<130/80) [facility] Start: 11-02-2025 Annual PCP Team Chronic Disease Visit Annual PCP Team Chronic Disease Visit [facility] Start: 11-02-2025 BP Controlled (<130/80) BP Controlled (<130/80) [facility] Start: 11-02-2025 Diabetic foot examination Diabetic Foot Exam [facility] Start: 11-02-2025 Hepatitis B surface antibody level LDL Cholesterol [facility] Start: 09-28-2025 Annual PCP Team Chronic Disease Visit Annual PCP Team Chronic Disease Visit [facility] Start: 09-28-2025 Hemoglobin A1c measurement HbA1C [facility] Start: 09-20-2025 BP Controlled (<130/80) BP Controlled (<130/80) [facility] Start: 09-08-2025 Annual PCP Team Chronic Disease Visit Annual PCP Team Chronic Disease Visit [facility] Start: 09-08-2025 BP Controlled (<130/80) BP Controlled (<130/80) [facility] Start: 07-23-2025 BP Controlled (<130/80) BP Controlled (<130/80) [facility] Start: 07-20-2025 End: 07-20-2025 Patient encounter procedure 07/20/2025 1:40 PM EDT Office Visit Family [facility]pp[facility] [address] [place] [address] Aleksandar Jones MD [address] [facility] [place] [address] 6 month follow up [facility] Comment on above: 6 month follow up Start: 07-06-2025 Annual PCP Team Chronic Disease Visit Annual PCP Team Chronic Disease Visit [facility] Start: 06-28-2025 End: 09-27-2025 Basic metabolic 2000 panel - Serum or Plasma [facility] Work Phone: Comment on above: Expected: 06/28/2025, Expires: Start: 06-28-2025 End: 09-27-2025 Magnesium [Mass/volume] in Serum or Plasma [facility] Comment on above: Expected: 06/28/2025, Expires: Start: 06-28-2025 End: 09-27-2025 Natriuretic peptide.B prohormone N-Terminal [Mass/volume] in Serum or Plasma [facility] Comment on above: Expected: 06/28/2025, Expires: Start: 06-28-2025 End: 06-28-2025 Patient encounter procedure [facility] Estela [place] Comment on above: 6 month follow up 6 month follow up (s tatin rx not filled since August, [facility] calling) Start: 06-28-2025 End: 09-27-2025 Thyrotropin [Units/volume] in Serum or Plasma [facility] Comment on above: Expected: 06/28/2025, Expires: 5 Start: 06-23-2025 Colonoscopy w/biopsy single/multiple COLONOSCOPY AND BIOPSY [facility] Start: 06-23-2025 Endoscopy upper small intestine w/biopsy SMALL BOWEL ENDOSCOPY/BIOPSY [facility] Start: 06-23-2025 Patient discharge [facility] Start: 06-13-2025 Influenza vaccination Influenza Vaccine (#1) [facility] Start: 05-04-2025 Screening for malignant neoplasm of lung Lung Cancer Screening [facility] Start: 05-02-2025 Hemoglobin A1c measurement HbA1C [facility] Start: 04-14-2025 Annual PCP Team Chronic Disease Visit Annual PCP Team Chronic Disease Visit [facility] Start: 04-14-2025 BP Controlled (<130/80) BP Controlled (<130/80) [facility] Start: 04-04-2025 End: 04-04-2025 Patient encounter procedure Cardiology Comment on above: 6 month check Start: 03-30-2025 Annual PCP Team Chronic Disease Visit Annual PCP Team Chronic Disease Visit [facility] Start: 03-30-2025 BP Controlled (<130/80) BP Controlled (<130/80) [facility] Start: 03-29-2025 End: 03-29-2025 Patient encounter procedure 03/29/2025 9:00 AM EDT Office Visit [facility] [address] [place] [address] Aleksandar Jones MD [address] [place] [address] 2 month follow up [facility] Comment on above: 2 month follow up Start: 03-19-2025 Annual PCP Team Chronic Disease Visit Annual PCP Team Chronic Disease Visit [facility] Start: 03-18-2025 End: 03-18-2025 Patient encounter procedure 03/18/2025 8:40 AM EDT Office Visit [facility] [address] [place] [address] Radha Batista APRN.TOOL PROFILING MACHINE SET UP OPERATOR [address] [place] [address] 2 month follow up Family [facility] Comment on above: 2 month follow up Start: 03-14-2025 End: 03-14-2025 Patient encounter procedure 03/14/2025 9:00 AM EDT Office Visit [facility] [address] [place] [address] Aleksandar Jones MD [address] [place] [address] 2 month follow up Family [facility] Comment on above: 2 month follow up Start: 03-02-2025 Annual PCP Team Chronic Disease Visit Annual PCP Team Chronic Disease Visit [facility] Start: 03-02-2025 BP Controlled (<130/80) BP Controlled (<130/80) [facility] Start: 02-11-2025 End: 05-13-2025 Hepatitis B virus core Ab [Presence] in Serum HEPATITIS B CORE ANTIBODY TOTAL Lab Routine Hepatitis B core antibody positive Expected: 02/11/2025, Expires: 05/13/2025 [facility] Comment on above: Expected: 02/11/2025, Expires: Start: 02-11-2025 End: 05-13-2025 Hepatitis B virus core IgM Ab [Presence] in Serum HEPATITIS B CORE ANTIBODY IGM Lab Routine Hepatitis B core antibody positive Expected: 02/11/2025, Expires: 05/13/2025 [facility] Comment on above: Expected: 02/11/2025, Expires: Start: 02-11-2025 End: 05-13-2025 Hepatitis B virus DNA [Units/volume] in Serum HEPATITIS B VIRUS (HBV) DNA, QUANTITATIVE PCR, PLASMA/SERUM Lab Routine Hepatitis B core antibody positive Expected: 02/11/2025, Expires: 05/13/2025 [facility] Work Phone: Comment on above: Expected: 02/11/2025, Expires: Start: 02-11-2025 End: 05-13-2025 Hepatitis B virus surface Ab [Presence] in Serum HEPATITIS B SURFACE ANTIBODY Lab Routine Hepatitis B core antibody positive Expected: 02/11/2025, Expires: 05/13/2025 [facility] Comment on above: Expected: 02/11/2025, Expires: Start: 02-11-2025 End: 05-13-2025 Hepatitis B virus surface Ag [Presence] in Serum HEPATITIS B SURFACE ANTIGEN Lab Routine Hepatitis B core antibody positive Expected: 02/11/2025, Expires: 05/13/2025 [facility] Comment on above: Expected: 02/11/2025, Expires: Start: 02-04-2025 BP Controlled (<130/80) BP Controlled (<130/80) [facility] Start: 01-20-2025 BP Controlled (<130/80) BP Controlled (<130/80) [facility] Start: 01-19-2025 End: 01-19-2025 Patient encounter procedure 01/19/2025 2:20 PM EDT Appointment Mammogram [address] [place] [address] Encounter for screening mammogram for breast cancer [Z12.31] Mammogram Comment on above: Encounter for screening mammogram for br east cancer [Z12.31] Start: 01-18-2025 End: 02-03-2026 US Abdomen RUQ US ABD RIGHT UPPER QUADRANT Radiology Routine Elevated liver enzymes Expected: 01/18/2025, Expires: 02/03/2026 [facility] Work Phone: Comment on above: Expected: 01/18/2025, Expires: Start: 01-18-2025 End: 01-18-2025 Patient encounter procedure 01/18/2025 10:00 AM EDT Appointment Radiology [address] [place] [address] Elevated liver enzymes [R74.8] Radiology Comment on above: Elevated liver enzymes [R74.8] Start: 01-14-2025 End: 04-15-2025 Comprehensive metabolic 2000 panel - Serum or Plasma COMPREHENSIVE METABOLIC PANEL Lab Routine Liver function test abnormality Hyponatremia Expected: 01/14/2025, Expires: 04/15/2025 [facility] Work Phone: Comment on above: Expected: 01/14/2025, Expires: Start: 01-12-2025 Annual PCP Team Chronic Disease Visit Annual PCP Team Chronic Disease Visit [facility] Start: 01-12-2025 End: 04-13-2025 Comprehensive metabolic 2000 panel - Serum or Plasma COMPREHENSIVE METABOLIC PANEL Lab Routine Liver function test abnormality Acute diastolic CHF (congestive heart failure) (HCC) Expected: 01/12/2025, Expires: 04/13/2025 [facility] Work Phone: Comment on above: Expected: 01/12/2025, Expires: Start: 01-12-2025 End: 01-12-2025 Patient encounter procedure 01/12/2025 10:00 AM EDT Office Visit [facility] [address] [facility] [address] Aleksandar Jones MD [address] [facility] [place] [address] follow up low sodium [facility] Comment on above: follow up low sodium Start: 01-07-2025 End: 01-07-2025 Patient encounter procedure 01/07/2025 1:30 PM EDT Appointment Mammogram [address] [place] [address] Encounter for screening mammogram for breast cancer [Z12.31] Mammogram Comment on above: Encounter for screening mammogram for br east cancer [Z12.31] Start: 01-04-2025 End: 04-05-2025 Basic metabolic 2000 panel - Serum or Plasma BASIC METABOLIC PANEL Lab Routine Hyponatremia Expected: 01/04/2025, Expires: 04/05/2025 [facility] Work Phone: Comment on above: Expected: 01/04/2025, Expires: Start: 01-04-2025 End: 04-05-2025 Osmolality of Urine OSMOLALITY URINE Lab Routine Hyponatremia Expected: 01/04/2025, Expires: 04/05/2025 [facility] Comment on above: Expected: 01/04/2025, Expires: Start: 01-04-2025 End: 04-05-2025 Sodium [Moles/volume] in Urine collected for unspecified duration SODIUM RANDOM URINE Lab Routine Hyponatremia Expected: 01/04/2025, Expires: 04/05/2025 [facility] Comment on above: Expected: 01/04/2025, Expires: Start: 12-31-2024 End: 04-01-2025 Basic metabolic 2000 panel - Serum or Plasma BASIC METABOLIC PANEL Lab Routine Hyponatremia Expected: 12/31/2024, Expires: 04/01/2025 [facility] Comment on above: Expected: 12/31/2024, Expires: Start: 12-31-2024 End: 04-01-2025 CBC W Auto Differential panel - Blood COMPLETE BLOOD COUNT AND DIFFERENTIAL Lab Routine Leukocytosis, unspecified type Expected: 12/31/2024, Expires: 04/01/2025 [facility] Work Phone: Comment on above: Expected: 12/31/2024, Expires: Start: 12-30-2024 End: 03-31-2025 HEP BE ANTIBODY HEP BE ANTIBODY Lab Routine Exposure to hepatitis B Expected: 12/30/2024, Expires: 03/31/2025 [facility] Comment on above: Expected: 12/30/2024, Expires: Start: 12-30-2024 End: 03-31-2025 Hepatitis B virus core Ab [Presence] in Serum HEPATITIS B CORE ANTIBODY TOTAL Lab Routine Exposure to hepatitis B Expected: 12/30/2024, Expires: 03/31/2025 [facility] Comment on above: Expected: 12/30/2024, Expires: Start: 12-30-2024 End: 03-31-2025 Hepatitis B virus core IgM Ab [Presence] in Serum HEPATITIS B CORE ANTIBODY IGM Lab Routine Exposure to hepatitis B Expected: 12/30/2024, Expires: 03/31/2025 [facility] Comment on above: Expected: 12/30/2024, Expires: Start: 12-30-2024 End: 03-31-2025 Hepatitis B virus DNA [Units/volume] in Serum HEPATITIS B VIRUS (HBV) DNA, QUANTITATIVE PCR, PLASMA/SERUM Lab Routine Exposure to hepatitis B Expected: 12/30/2024, Expires: 03/31/2025 [facility] Work Phone: Comment on above: Expected: 12/30/2024, Expires: Start: 12-30-2024 End: 03-31-2025 Hepatitis B virus e Ag [Presence] in Serum or Plasma by Immunoassay HEP BE ANTIGEN Lab Routine Exposure to hepatitis B Expected: 12/30/2024, Expires: 03/31/2025 [facility] Comment on above: Expected: 12/30/2024, Expires: Start: 12-30-2024 End: 03-31-2025 Hepatitis B virus surface Ab [Presence] in Serum HEPATITIS B SURFACE ANTIBODY Lab Routine Exposure to hepatitis B Expected: 12/30/2024, Expires: 03/31/2025 [facility] Comment on above: Expected: 12/30/2024, Expires: Start: 12-30-2024 End: 03-31-2025 Hepatitis B virus surface Ag [Presence] in Serum HEPATITIS B SURFACE ANTIGEN Lab Routine Exposure to hepatitis B Expected: 12/30/2024, Expires: 03/31/2025 [facility] Comment on above: Expected: 12/30/2024, Expires: 5 Start: 12-28-2024 End: 12-28-2025 HEP ACUTE PANEL/RNA [facility] Comment on above: Expected: 12/28/2024, Expires: Start: 12-28-2024 End: 12-28-2025 Hepatic function 2000 panel - Serum or Plasma [facility] Work Phone: Comment on above: Expected: 12/28/2024, Expires: Start: 12-28-2024 End: 12-28-2024 Patient encounter procedure [facility] Comment on above: 3 month follow up Annual/2-4 week foll ow up Start: 12-21-2024 Bacteria identified in Blood by Culture Blood Culture [facility] Start: 12-21-2024 Bacteria identified in Urine by Culture Urine Culture [facility] Start: 12-21-2024 [facility] Start: 12-21-2024 End: 12-21-2024 [facility] Start: 12-07-2024 End: 12-07-2024 Patient encounter procedure 12/07/2024 10:00 AM EST Office Visit [facility] [address] [place], [place] [address] Radha Batista APRN.TOOL PROFILING MACHINE SET UP OPERATOR [address] [place], [place] [address] 1 month follow up [facility] Comment on above: 1 month follow up Start: 12-01-2024 End: 12-01-2024 Patient encounter procedure 12/01/2024 12:30 PM EST Office Visit Vasculary Surgery [address] [place] [address] Weakness of both lower extremities [R29.898] [facility] Comment on above: Weakness of both lower extremities [R29. 898] Start: 11-26-2024 End: 11-26-2024 Patient encounter procedure 11/26/2024 8:00 AM EST Office Visit [facility] [address] [place] [address] Weakness of both lower extremities [R29.898] [facility] Comment on above: Weakness of both lower extremities [R29. 898] Start: 11-17-2024 Glaucoma screening Dilated Retinal Exam [facility] Start: 11-12-2024 Patient discharge [facility] Start: 11-11-2024 [facility] Start: 11-11-2024 Physiotherapy of chest [facility] Start: 11-10-2024 Care planning and problem solving actions [facility] Start: 11-10-2024 Aspiration precautions [facility] Start: 11-10-2024 Assessment of risk of venous thromboembolism [facility] Start: 11-10-2024 Care regimes management [facility] Start: 11-10-2024 Continuous positive airway pressure ventilation treatment [facility] Start: 11-10-2024 Insertion of catheter into peripheral vein [facility] Start: 11-10-2024 Measuring intake and output [facility] Start: 11-10-2024 Notification of physician [facility] Start: 11-10-2024 Oxygen therapy [facility] Start: 11-10-2024 Providing care according to standard [facility] Start: 11-10-2024 Provision of activity privileges [facility] Start: 11-10-2024 Referral to service [facility] Start: 11-10-2024 End: 11-10-2024 [facility] Start: 11-10-2024 Respiratory secretion precautions [facility] Start: 11-10-2024 Following clinical pathway protocol [facility] Start: 11-10-2024 Inhalation therapy procedure [facility] Start: 11-09-2024 Admission procedure [facility] Start: 11-09-2024 End: 02-08-2025 INFLUENZA A&B MOLECULAR (POC) INFLUENZA A&B MOLECULAR (POC) Microbiology Routine URI, acute Expected: 11/09/2024, Expires: 02/08/2025 [facility] Work Phone: Comment on above: Expected: 11/09/2024, Expires: Start: 11-05-2024 Annual PCP Team Chronic Disease Visit Annual PCP Team Chronic Disease Visit [facility] Start: 11-05-2024 End: 02-04-2025 Basic metabolic 2000 panel - Serum or Plasma BASIC METABOLIC PANEL Lab Routine Hyponatremia Expected: 11/05/2024, Expires: 02/04/2025 [facility] Work Phone: Comment on above: Expected: 11/05/2024, Expires: Start: 11-05-2024 BP Controlled (<130/80) BP Controlled (<130/80) [facility] Start: 11-05-2024 End: 02-04-2025 CBC W Auto Differential panel - Blood COMPLETE BLOOD COUNT AND DIFFERENTIAL Lab Routine Hyponatremia Expected: 11/05/2024, Expires: 02/04/2025 [facility] Comment on above: Expected: 11/05/2024, Expires: Start: 11-05-2024 Hepatitis B surface antibody level LDL Cholesterol [facility] Start: 11-02-2024 End: 02-01-2025 Aldolase [Enzymatic activity/volume] in Serum or Plasma [facility] Comment on above: Expected: 11/02/2024, Expires: Start: 11-02-2024 End: 02-01-2025 CBC W Auto Differential panel - Blood [facility] Comment on above: Expected: 11/02/2024, Expires: Start: 11-02-2024 End: 02-01-2025 Comprehensive metabolic 2000 panel - Serum or Plasma [facility] Comment on above: Expected: 11/02/2024, Expires: Start: 11-02-2024 End: 02-01-2025 Creatine kinase [Enzymatic activity/volume] in Serum or Plasma [facility] Comment on above: Expected: 11/02/2024, Expires: Start: 11-02-2024 End: 02-01-2025 Hemoglobin A1c in Blood [facility] Work Phone: Comment on above: Expected: 11/02/2024, Expires: Start: 11-02-2024 End: 02-01-2025 LIPID PANEL, NONFASTING [facility] Comment on above: Expected: 11/02/2024, Expires: Start: 10-14-2024 [facility] Start: 10-13-2024 Medicare Advantage Annual Wellness Visit Medicare [facility] Annual Wellness Visit [facility] Start: 09-28-2024 End: 09-28-2024 Patient encounter procedure 09/28/2024 1:00 PM EST Office Visit [facility] [place] [address] [place] [address] Radha Batista APRN.TOOL PROFILING MACHINE SET UP OPERATOR [address] [place], [place] [id number] 3 month follow up [facility] [place] Comment on above: 3 month follow up Start: 09-22-2024 BP Controlled (<130/80) BP Controlled (<130/80) [facility] Start: 09-20-2024 End: 09-20-2024 Patient encounter procedure Cardiology Comment on above: 1 yr follow up 3 month follow up Start: 09-19-2024 Annual PCP Team Chronic Disease Visit Annual PCP Team Chronic Disease Visit [facility] Start: 09-07-2024 End: 09-07-2024 Patient encounter procedure 09/07/2024 10:00 AM EST Office Visit [facility] [place] [address] [place] [address] Shelia Salmon SMELLER.TOOL PROFILING MACHINE SET UP OPERATOR [address] [place], [place] [id number] 2 week f/u [facility] [place] Comment on above: 2 week f/u Start: 09-02-2024 Hemoglobin A1c measurement HbA1C [facility] Start: 07-06-2024 End: 10-05-2024 25-hydroxyvitamin D3 [Mass/volume] in Serum or Plasma VITAMIN D 25 HYDROXY Lab Routine Vitamin D deficiency Expected: 07/06/2024, Expires: 10/05/2024 [facility] Comment on above: Expected: 07/06/2024, Expires: Start: 07-06-2024 End: 10-05-2024 CBC W Auto Differential panel - Blood COMPLETE BLOOD COUNT AND DIFFERENTIAL Lab Routine Fatigue, unspecified type Expected: 07/06/2024, Expires: 10/05/2024 [facility] Work Phone: Comment on above: Expected: 07/06/2024, Expires: Start: 07-06-2024 End: 10-05-2024 Comprehensive metabolic 2000 panel - Serum or Plasma COMPREHENSIVE METABOLIC PANEL Lab Routine Uncontrolled type 2 diabetes mellitus with hyperglycemia (HCC) Fatigue, unspecified type Primary hypertension Pure hypercholesterolemia Expected: 07/06/2024, Expires: 10/05/2024 [facility] Comment on above: Expected: 07/06/2024, Expires: Start: 07-06-2024 End: 10-05-2024 Hemoglobin A1c in Blood HEMOGLOBIN A1C Lab Routine Uncontrolled type 2 diabetes mellitus with hyperglycemia (HCC) Expected: 07/06/2024, Expires: 10/05/2024 [facility] Comment on above: Expected: 07/06/2024, Expires: Start: 07-06-2024 End: 10-05-2024 Lipid 1996 panel - Serum or Plasma LIPID PANEL BASIC Lab Routine Pure hypercholesterolemia Expected: 07/06/2024, Expires: 10/05/2024 [facility] Comment on above: Expected: 07/06/2024, Expires: Start: 07-06-2024 End: 10-05-2024 Thyrotropin [Units/volume] in Serum or Plasma THYROID STIMULATING HORMONE Lab Routine Fatigue, unspecified type Expected: 07/06/2024, Expires: 10/05/2024 [facility] Comment on above: Expected: 07/06/2024, Expires: Start: 06-30-2024 End: 06-30-2024 Patient encounter procedure 06/30/2024 8:40 AM EDT Office Visit [facility] [place] [address] [facility] [place] [address] Radha Batista APRN.TOOL PROFILING MACHINE SET UP OPERATOR [address] [place] [address] 3 month follow up [facility] [place] Comment on above: 3 month follow up Start: 06-13-2024 Influenza vaccination Influenza Vaccine (#1) [facility] Start: 05-05-2024 Hemoglobin A1c measurement HbA1C [facility] Start: 05-04-2024 End: 05-04-2024 Patient encounter procedure 05/04/2024 9:00 AM EDT Office Visit [facility] [place] [address] [place] [address] Radha Batista APRN.TOOL PROFILING MACHINE SET UP OPERATOR [address] [place] [address] 6 month follow up Family [facility] Comment on above: 6 month follow up Start: 04-29-2024 ANNUAL PCP TEAM CHRONIC DISEASE VISIT ANNUAL PCP TEAM CHRONIC DISEASE VISIT [facility] Start: 04-29-2024 Hepatitis B surface antibody level LDL CHOLESTEROL [facility] Start: 04-01-2024 End: 04-01-2024 ambulatory 04/01/2024 10:00 AM EDT OT/PT/Speech Visit [facility] [address] [place] [address] Long Davis, PT [address] [place] [address] R29.898 (ICD-10-CM) - Leg weakness, bilateral [facility] Comment on above: R29.898 (ICD-10-CM) - Leg weakness, bila teral Start: 03-30-2024 End: 03-30-2024 ambulatory 03/30/2024 11:30 AM EDT OT/PT/Speech Visit [facility] [address] [place] [address] Long Davis, PT [address] [place] [address] R29.898 (ICD-10-CM) - Leg weakness, bilateral [facility] Comment on above: R29.898 (ICD-10-CM) - Leg weakness, bila teral Start: 03-30-2024 End: 03-30-2024 Patient encounter procedure 03/30/2024 8:40 AM EDT Office Visit Family [facility] [place] [address] [facility] [place] [address] Radha Batista APRN.TOOL PROFILING MACHINE SET UP OPERATOR [address] [place] [address] Medication Review [facility] Comment on above: Medication Review Start: 03-25-2024 End: 03-25-2024 ambulatory 03/25/2024 11:45 AM EDT OT/PT/Speech Visit [facility] [address] [place] [address] Jaci Brady, WORKFORCE INVESTMENT ACT CAREER MANAGER [address] [place] [address] R29.898 (ICD-10-CM) - Leg weakness, bilateral [facility] Comment on above: R29.898 (ICD-10-CM) - Leg weakness, bila teral Start: 03-23-2024 End: 03-23-2024 ambulatory 03/23/2024 10:45 AM EDT OT/PT/Speech Visit [facility] [address] [place] [address] Long Davis, PT [address] [place] [address] R29.898 (ICD-10-CM) - Leg weakness, bilateral [facility] Comment on above: R29.898 (ICD-10-CM) - Leg weakness, bila teral Start: 03-19-2024 End: 03-19-2024 Patient encounter procedure 03/19/2024 8:40 AM EDT Office Visit [facility] [place] [address] [facility] [place] [address] Radha Batista, ADIEL.TOOL PROFILING MACHINE SET UP OPERATOR [address] [place] [address] Anxiety/ weakness in legs. [facility] Comment on above: Anxiety/ weakness in legs. Start: 03-18-2024 End: 03-18-2024 ambulatory 03/18/2024 11:45 AM EDT OT/PT/Speech Visit [facility] [address] [place] [address] Jaci Brady, WORKFORCE INVESTMENT ACT CAREER MANAGER [address] [place] [address] R29.898 (ICD-10-CM) - Leg weakness, bilateral [facility] Comment on above: R29.898 (ICD-10-CM) - Leg weakness, bila teral Start: 03-16-2024 End: 03-16-2024 ambulatory 03/16/2024 11:30 AM EDT OT/PT/Speech Visit [facility] [address] [place] [address] Long Davis, PT [address] [place] [address] R29.898 (ICD-10-CM) - Leg weakness, bilateral [facility] Comment on above: R29.898 (ICD-10-CM) - Leg weakness, bila teral Start: 03-05-2024 End: 06-04-2024 CBC W Auto Differential panel - Blood COMPLETE BLOOD COUNT AND DIFFERENTIAL Lab Routine Thrombocytopenia (HCC) Expected: 03/05/2024, Expires: 06/04/2024 [facility] Work Phone: Comment on above: Expected: 03/05/2024, Expires: Start: 03-05-2024 End: 06-04-2024 Hepatic function 2000 panel - Serum or Plasma HEPATIC FUNCTION PNL Lab Routine Elevated liver enzymes Expected: 03/05/2024, Expires: 06/04/2024 [facility] Comment on above: Expected: 03/05/2024, Expires: Start: 03-04-2024 End: 03-04-2024 ambulatory 03/04/2024 11:45 AM EDT OT/PT/Speech Visit [facility] [address] [place] [address] Jaci Brady, WORKFORCE INVESTMENT ACT CAREER MANAGER [address] [place] [address] R29.898 (ICD-10-CM) - Leg weakness, bilateral [facility] Comment on above: R29.898 (ICD-10-CM) - Leg weakness, bila teral Start: 03-02-2024 End: 03-02-2024 ambulatory 03/02/2024 2:45 PM EDT OT/PT/Speech Visit [facility] [address] [place] [address] Logn Davis, PT [address] [place] [address] R29.898 (ICD-10-CM) - Leg weakness, bilateral [facility] Comment on above: R29.898 (ICD-10-CM) - Leg weakness, bila teral Start: 03-02-2024 End: 06-01-2024 Bacteria identified in Urine by Culture [facility] Work Phone: Comment on above: Expected: 03/02/2024, Expires: 4 Start: 03-02-2024 End: 03-02-2024 Patient encounter procedure 03/02/2024 8:40 AM EDT Office Visit [facility] [address] [place] [address] Radha Batista APRN.TOOL PROFILING MACHINE SET UP OPERATOR [address] [place] [address] Medication Review [facility] [place] Comment on above: Medication Review Start: 02-26-2024 End: 02-26-2024 ambulatory 02/26/2024 10:00 AM EDT OT/PT/Speech Visit [facility] [address] [place] [address] Golias, Long, PT [address] [place] [address] R29.898 (ICD-10-CM) - Leg weakness, bilateral [facility] Comment on above: R29.898 (ICD-10-CM) - Leg weakness, bila teral Start: 02-24-2024 End: 02-24-2024 ambulatory 02/24/2024 11:00 AM EDT OT/PT/Speech Visit [facility] [address] [place] [address] Jaci Brady, WORKFORCE INVESTMENT ACT CAREER MANAGER [address] [place] [address] R29.898 (ICD-10-CM) - Leg weakness, bilateral [facility] Comment on above: R29.898 (ICD-10-CM) - Leg weakness, bila teral Start: 02-19-2024 End: 02-19-2024 ambulatory 02/19/2024 9:15 AM EDT OT/PT/Speech Visit [facility] [address] [place] [address] Golias, Long, PT [address] [place] [address] R29.898 (ICD-10-CM) - Leg weakness, bilateral [facility] Comment on above: R29.898 (ICD-10-CM) - Leg weakness, bila teral Start: 02-17-2024 End: 02-17-2024 ambulatory 02/17/2024 8:45 AM EDT OT/PT/Speech Visit [facility] [address] [place] [address] Jaci Brady, WORKFORCE INVESTMENT ACT CAREER MANAGER [address] [place] [address] R29.898 (ICD-10-CM) - Leg weakness, bilateral [facility] Comment on above: R29.898 (ICD-10-CM) - Leg weakness, bila teral Start: 02-12-2024 End: 02-12-2024 ambulatory 02/12/2024 9:30 AM EDT OT/PT/Speech Visit [facility] [address] [place] [address] Jaci Brady, WORKFORCE INVESTMENT ACT CAREER MANAGER [address] [place] [address] R29.898 (ICD-10-CM) - Leg weakness, bilateral [facility] Comment on above: R29.898 (ICD-10-CM) - Leg weakness, bila teral Start: 02-10-2024 End: 02-10-2024 ambulatory 02/10/2024 2:45 PM EDT OT/PT/Speech Visit [facility] [address] [place] [address] Long Davis, PT [address] [place] [address] R29.898 (ICD-10-CM) - Leg weakness, bilateral [facility] Comment on above: R29.898 (ICD-10-CM) - Leg weakness, bila teral Start: 02-05-2024 End: 02-05-2024 ambulatory 02/05/2024 8:45 AM EDT OT/PT/Speech Visit [facility] [address] [place] [address] Jcai Brady, WORKFORCE INVESTMENT ACT CAREER MANAGER [address] [place] [address] R29.898 (ICD-10-CM) - Leg weakness, bilateral [facility] Comment on above: R29.898 (ICD-10-CM) - Leg weakness, bila teral Start: 02-03-2024 Shingrix Vaccine (2 of 2) Shingrix Vaccine (2 of 2) [facility] Start: 12-21-2023 ANNUAL PCP TEAM CHRONIC DISEASE VISIT ANNUAL PCP TEAM CHRONIC DISEASE VISIT [facility] Start: 12-13-2023 [facility] Start: 2023 RSV Vaccine (1 - 1-dose 60+ series) RSV Vaccine (1 - 1-dose 60+ series) [facility] Start: 10-30-2023 Hemoglobin A1c/Hemoglobin.total in Blood HBA1C [facility] Start: 10-13-2023 Behavioral Health Screening Behavioral Health Screening [facility] Start: 10-13-2023 Depression Assessment Depression Assessment [facility] Start: 09-17-2023 Hepatitis C antibody, confirmatory test DILATED RETINAL EXAM [facility] Start: 08-28-2023 ANNUAL PCP TEAM CHRONIC DISEASE VISIT ANNUAL PCP TEAM CHRONIC DISEASE VISIT [facility] Start: 08-21-2023 Hepatitis B surface antibody level LDL CHOLESTEROL [facility] Start: 08-18-2023 Blood chemistry [facility] Start: 08-17-2023 Blood chemistry [facility] Start: 08-16-2023 Patient discharge [facility] Start: 08-15-2023 Following clinical pathway protocol [facility] Start: 08-14-2023 Assessment of risk of venous thromboembolism [facility] Start: 08-14-2023 Bacteria identified in Sputum by Culture [facility] Start: 08-14-2023 Care regimes management [facility] Start: 08-14-2023 Continuous positive airway pressure ventilation treatment [facility] Start: 08-14-2023 Fall prevention [facility] Start: 08-14-2023 Incentive spirometry [facility] Start: 08-14-2023 Inhalation therapy procedure [facility] Start: 08-14-2023 Insertion of catheter into peripheral vein [facility] Start: 08-14-2023 Introduction of urinary catheter [facility] Start: 08-14-2023 Measuring intake and output [facility] Start: 08-14-2023 Notification of physician [facility] Start: 08-14-2023 Oxygen therapy [facility] Start: 08-14-2023 Providing care according to standard [facility] Start: 08-14-2023 Provision of activity privileges [facility] Start: 08-14-2023 Referral to occupational therapist [facility] Start: 08-14-2023 Referral to service [facility] Start: 08-14-2023 [facility] Start: 08-14-2023 Gas panel - Arterial blood [facility] Start: 08-14-2023 Hospital admission, emergency, from emergency room, medical nature [facility] Start: 08-14-2023 Verification routine [facility] Start: 08-14-2023 Admission procedure [facility] Start: 08-14-2023 [facility] Start: 08-14-2023 Respiratory secretion precautions [facility] Start: 08-14-2023 Respiratory Panel (PCR) Respiratory Panel (PCR) [facility] Start: 06-13-2023 Covid-19 Vaccine ( season) Covid-19 Vaccine ( season) [facility] Start: 06-13-2023 Influenza vaccination [facility] Start: 04-29-2023 End: 06-29-2023 Bacteria identified in Urine by Culture [facility] Work Phone: Comment on above: Expected: 04/29/2023, Expires: 3 Start: 04-29-2023 End: 06-29-2023 Comprehensive metabolic 2000 panel - Serum or Plasma [facility] Work Phone: Comment on above: Expected: 04/29/2023, Expires: 3 Start: 04-29-2023 End: 06-29-2023 Hemoglobin A1c in Blood [facility] Work Phone: Comment on above: Expected: 04/29/2023, Expires: 3 Start: 04-29-2023 End: 06-29-2023 LIPID PANEL, NONFASTING [facility] Work Phone: Comment on above: Expected: 04/29/2023, Expires: 3 Start: 04-29-2023 End: 06-29-2023 Magnesium [Mass/volume] in Serum or Plasma [facility] Work Phone: Comment on above: Expected: 04/29/2023, Expires: 3 Start: 04-29-2023 End: 06-29-2023 Thyrotropin [Units/volume] in Serum or Plasma [facility] Work Phone: Comment on above: Expected: 04/29/2023, Expires: 3 Start: 04-29-2023 End: 06-29-2023 Thyroxine (T4) free [Mass/volume] in Serum or Plasma [facility] Work Phone: Comment on above: Expected: 04/29/2023, Expires: 3 Start: 04-29-2023 End: 06-29-2023 Urinalysis complete panel - Urine [facility] Work Phone: Comment on above: Expected: 04/29/2023, Expires: 3 Start: 04-18-2023 Influenza vaccination LUNG CANCER SCREENING [facility] Start: 04-18-2023 Screening for malignant neoplasm of lung Lung Cancer Screening [facility] Start: 03-27-2023 ANNUAL PCP TEAM CHRONIC DISEASE VISIT ANNUAL PCP TEAM CHRONIC DISEASE VISIT [facility] Start: 02-18-2023 Hemoglobin A1c/Hemoglobin.total in Blood HBA1C [facility] Start: 01-30-2023 ANNUAL PCP TEAM CHRONIC DISEASE VISIT ANNUAL PCP TEAM CHRONIC DISEASE VISIT [facility] Start: 01-14-2023 Adult depression screening assessment DEPRESSION SCREENING [facility] Start: 01-14-2023 ANNUAL PCP TEAM CHRONIC DISEASE VISIT ANNUAL PCP TEAM CHRONIC DISEASE VISIT [facility] Start: 01-13-2023 Urine microalbumin profile [facility] Start: 10-26-2022 Hepatitis C antibody, confirmatory test DILATED RETINAL EXAM [facility] Start: 10-13-2022 DEPRESSION ASSESSMENT DEPRESSION ASSESSMENT [facility] Start: 09-26-2022 ANNUAL PCP TEAM CHRONIC DISEASE VISIT ANNUAL PCP TEAM CHRONIC DISEASE VISIT [facility] Start: 08-13-2022 3 comp foot exam completed DIABETIC FOOT EXAM [facility] Start: 08-13-2022 Diabetic foot examination Diabetic Foot Exam [facility] Start: 06-27-2022 Mammography [facility] Start: 06-27-2022 Screening for malignant neoplasm of breast Mammogram Screening [facility] Start: 06-24-2022 COVID-19 VACCINE (5 - Booster for Moderna series) COVID-19 VACCINE (5 - Booster for Moderna series) [facility] Start: 06-13-2022 Influenza vaccination INFLUENZA (#1) [facility] Start: 06-05-2022 Suicide precautions [facility] Work Phone: Start: 06-05-2022 Consultation [facility] Work Phone: Start: 01-14-2022 End: 03-16-2022 ALBUMIN/CREAT RATIO RND UR ALBUMIN/CREAT RATIO RND UR Lab Routine Type 2 diabetes mellitus with diabetic nephropathy, with long-term current use of insulin (HCC) Expected: 01/14/2022, Expires: 03/16/2022 [facility] Work Phone: Comment on above: Expected: 01/14/2022, Expires: 2 Start: 01-14-2022 End: 03-16-2022 Basic metabolic 2000 panel - Serum or Plasma BASIC METABOLIC PNL Lab Routine Water intoxication Expected: 01/14/2022, Expires: 03/16/2022 [facility] Work Phone: Comment on above: Expected: 01/14/2022, Expires: 2 Start: 01-14-2022 End: 03-16-2022 Hemoglobin A1c/Hemoglobin.total in Blood HGB A1C Lab Routine Type 2 diabetes mellitus with diabetic nephropathy, with long-term current use of insulin (HCC) Expected: 01/14/2022, Expires: 03/16/2022 [facility] Work Phone: Comment on above: Expected: 01/14/2022, Expires: 2 Start: 01-14-2022 End: 03-16-2022 LIPID PANEL BASIC LIPID PANEL BASIC Lab Routine Type 2 diabetes mellitus with diabetic nephropathy, with long-term current use of insulin (HCC) Expected: 01/14/2022, Expires: 03/16/2022 [facility] Work Phone: Comment on above: Expected: 01/14/2022, Expires: 2 Start: 01-14-2022 End: 03-16-2022 VITAMIN D 25 HYDROXY VITAMIN D 25 HYDROXY Lab Routine Vitamin D deficiency Expected: 01/14/2022, Expires: 03/16/2022 [facility] Work Phone: Comment on above: Expected: 01/14/2022, Expires: 2 Start: 01-02-2022 COVID-19 VACCINE (4 - Booster for Moderna series) COVID-19 VACCINE (4 - Booster for Moderna series) [facility] Start: 11-13-2021 Influenza vaccination LUNG CANCER SCREENING [facility] Start: 10-13-2021 DEPRESSION ASSESSMENT DEPRESSION ASSESSMENT [facility] Start: 07-26-2021 Hepatitis B surface antibody level LDL CHOLESTEROL [facility] Start: 05-23-2021 Hemoglobin A1c/Hemoglobin.total in Blood HBA1C [facility] Start: 04-18-2021 3 comp foot exam completed DIABETIC FOOT EXAM [facility] Start: 08-05-2020 Adult depression screening assessment DEPRESSION SCREENING [facility] Start: 06-13-2020 Pneumococcal vaccination [facility] Start: 01-13-2019 FECAL OCCULT BLOOD FECAL OCCULT BLOOD [facility] Start: 01-13-2019 Screening for malignant neoplasm of colon Fecal Occult Blood [facility] Start: 08-08-2015 PNEUMOCOCCAL (2 - PCV) PNEUMOCOCCAL (2 - PCV) [facility] Start: 08-08-2015 Pneumococcal vaccination Pneumococcal Vaccine (2 - PCV) [facility] Start: 2013 SHINGRIX VACCINE (1 of 2) SHINGRIX VACCINE (1 of 2) [facility] Start: 2008 COLOGUARD (FIT-DNA) COLOGUARD (FIT-DNA) [facility] Start: [address] COLONOGRAPHY [facility] Start: 2008 Screening for malignant neoplasm of colon [facility] Start: 2008 SIGMOIDOSCOPY SIGMOIDOSCOPY [facility] Start: 1982 HEPATITIS B (1 of 3 - Risk 3-dose series) HEPATITIS B (1 of 3 - Risk 3-dose series) [facility] Start: 1981 Anxiety Screening Anxiety Screening [facility] Start: 1981 BP Controlled (<130/80) BP Controlled (<130/80) [facility] Start: 1981 Depression Screening Depression Screening [facility] Start: 1981 HIV SCREENING HIV SCREENING [facility] Start: 1981 HIV screening HIV Screening [facility] Start: 1981 SPIROMETRY SPIROMETRY [facility] Start: 1963 HEPATITIS B (1 of 3 - 3-dose series) HEPATITIS B (1 of 3 - 3-dose series) [facility] BACTERIAL VAGINOSIS NAAT BACTERIAL VAGINOSIS NAAT Lab Routine Itching in the vaginal area 08/29/2023 3:29 PM EST [facility] Work Phone: DIONICIO/TRICHOMONAS NAAT DIONICIO/TRICHOMONAS NAAT Lab Routine Itching in the vaginal area 08/29/2023 3:29 PM EST [facility] Work Phone: CBC W Auto Different ial panel - Blood CBC + DIFF Lab Routine Weight loss 04/29/2023 3:51 PM EDT [facility] Work Phone: End: 07-23-2025 DBT Breast - bilateral screening FRANNY SCREENING [facility] [place] Radiology Routine Encounter for screening mammogram for breast cancer 1 Occurrences starting 06/23/2024 until 07/23/2025 [facility] Work Phone: Comment on above: 1 Occurrences starting 06/23/2024 until 07/23/2025 DBT Breast - bilater al screening [facility] SCREENING [place] Radiology Routine Encounter for screening mammogram for breast cancer 01/19/2025 2:51 PM EDT [facility] Work Phone: End: 04-29-2024 ECG COMPLETE ECG COMPLETE ECG Routine Chest pain, unspecified type 1 Occurrences starting 04/29/2023 until 04/29/2024 [facility] Work Phone: Comment on above: 1 Occurrences starting 04/29/2023 until 04/29/2024 ECG COMPLETE ECG COMPLETE ECG Routine Primary hypertension Pure hypercholesterolemia SVT (supraventricular tachycardia) (HCC) Tachycardia 09/20/2024 12:57 PM EST [facility] Work Phone: Hemoglobin.gastroint est inal.lower [Presence] in Stool by Immunoassay FECAL OCCULT BLOOD TEST Lab Routine Weight loss Ordered: 04/29/2023 [facility] Work Phone: Comment on above: Ordered: 04/29/2023 End: 08-14-2024 FRANNY SCREENING [facility] SCREENING Radiology Routine Encounter for screening mammogram for breast cancer 1 Occurrences starting 07/16/2023 until 08/14/2024 [facility] Work Phone: Comment on above: 1 Occurrences starting 07/16/2023 until 08/14/2024 NM CARDIAC PERF STRESS/PHARM NM CARDIAC PERF STRESS/PHARM Radiology Routine Chest pain, unspecified type Ordered: 04/29/2023 [facility] Work Phone: Comment on above: Ordered: 04/29/2023 Patient Education [facility] Work Phone: Patient referral [facility] Work Phone: Respiratory pathogen s DNA and RNA panel - Respiratory specimen by LUIS M with probe detection [facility] End: 09-06-2023 Screening mammography bi 2-view breast inc cad FRANNY SCREENING Radiology Routine Encounter for screening mammogram for breast cancer 1 Occurrences starting 08/07/2022 until 09/06/2023 [facility] Work Phone: Comment on above: 1 Occurrences starting 08/07/2022 until 09/06/2023 Urine culture [facility] End: 11-02-2025 US.doppler Extremity arteries - bilateral for physiologic artery study PVR ANK PRESS [facility] Vascular Lab Routine Weakness of both lower extremities 1 Occurrences starting 11/02/2024 until 11/02/2025 [facility] Comment on above: 1 Occurrences starting 11/02/2024 until 11/02/2025 [facility] Immunizations Immunization Date Immunization Notes Care Provider Rayna oconnell 06-28-2025 influenza, seasonal, injectable, preservative free Aleksandar Jones MD Work Phone: [facility] 09-08-2024 pneumococcal conjuga te (PCV20) vaccine, 20 valent (PREVNAR 20) Radha Batista SMELLER.TOOL PROFILING MACHINE SET UP OPERATOR Work Phone: [facility] 09-08-2024 pneumococcal Conjuga te, unspecified formulation Radha Batista SMELLER.TOOL PROFILING MACHINE SET UP OPERATOR Work Phone: [facility] Work Phone: 07-06-2024 COVID-19 vaccine, ag e 12+ yr (PFIZER-BIONTECH) Radha Batista SMELLER.TOOL PROFILING MACHINE SET UP OPERATOR Work Phone: [facility] 07-06-2024 influenza, seasonal, injectable Radha Batista SMELLER.TOOL PROFILING MACHINE SET UP OPERATOR Work Phone: [facility] 07-06-2024 influenza virus vaccine, unspecified formulation Aleksandar Jones MD Work Phone: [facility] 12-09-2023 respiratory syncytia l virus (RSV) vaccine, bivalent (ABRYSVO) Radha Batista SMELLER.TOOL PROFILING MACHINE SET UP OPERATOR Work Phone: [facility] 12-09-2023 zoster vaccine recombinant Radha Batista SMELLER.TOOL PROFILING MACHINE SET UP OPERATOR Work Phone: [facility] 11-05-2023 COVID-19 vaccine, ag e 12+ yr, season (PFIZER-BIONTECH) Meredith Moore SMELLER.TOOL PROFILING MACHINE SET UP OPERATOR Work Phone: [facility] 11-05-2023 influenza, injectabl e, quadrivalent, contains preservative Meredith Moore SMELLER.TOOL PROFILING MACHINE SET UP OPERATOR Work Phone: [facility] 11-05-2023 influenza virus vaccine, unspecified formulation Radha Batista SMELLER.TOOL PROFILING MACHINE SET UP OPERATOR Work Phone: [facility] 08-22-2022 influenza, injectabl e, quadrivalent, preservative free Adriano Menezes SMELLER.TOOL PROFILING MACHINE SET UP OPERATOR Work Phone: [facility] 08-22-2022 influenza virus vaccine, unspecified formulation Fuentes Renee MD Work Phone: [facility] 06-29-2021 influenza, injectabl e, quadrivalent, contains preservative Aleksandar Jones MD Work Phone: [facility] 11-29-2020 COVID-19 vaccine, fu ll dose (MODERNA) Aleksandar Jones MD Work Phone: [facility] 11-01-2020 COVID-19 vaccine, fu ll dose (MODERNA) Aleksandar Jones MD Work Phone: [facility] 07-19-2020 influenza, injectabl e, quadrivalent, contains preservative Aleksandar Jones MD Work Phone: [facility] 10-18-2019 Influenza virus vaccine [facility] 10-18-2019 influenza, injectabl e, quadrivalent, contains preservative Aleksandar Jones MD Work Phone: [facility] Work Phone: 06-13-2019 influenza, seasonal, injectable Adriano Pendlebury SMELLER.TOOL PROFILING MACHINE SET UP OPERATOR Work Phone: [facility] 06-13-2019 pneumococcal polysaccharide vaccine, 23 valent Radha Haagen SMELLER.TOOL PROFILING MACHINE SET UP OPERATOR Work Phone: [facility] 07-18-2018 tetanus toxoid, redu regino diphtheria toxoid, and acellular pertussis vaccine, adsorbed [facility] 07-17-2018 Influenza virus vaccine [facility] 07-17-2018 influenza, injectabl e, quadrivalent, contains preservative Aleksandar Jones MD Work Phone: [facility] 08-18-2017 tuberculin skin test ; purified protein derivative solution, intradermal Aleksandar Jones MD Work Phone: [facility] 08-11-2017 tuberculin skin test ; purified protein derivative solution, intradermal Aleksandar Jones MD Work Phone: [facility] 07-14-2017 Influenza virus vaccine [facility] 07-14-2017 influenza, seasonal, injectable, preservative free Adriano Pendlebury SMELLER.TOOL PROFILING MACHINE SET UP OPERATOR Work Phone: [facility] 06-23-2017 influenza, injectabl e, quadrivalent, preservative free Adriano Pendlebury SMELLER.TOOL PROFILING MACHINE SET UP OPERATOR Work Phone: [facility] 07-04-2016 influenza, injectabl e, quadrivalent, contains preservative Aleksandar Jones MD Work Phone: [facility] 07-14-2015 influenza, injectabl e, quadrivalent, preservative free Adriano Pendlebury SMELLER.TOOL PROFILING MACHINE SET UP OPERATOR Work Phone: [facility] 07-11-2015 influenza, injectabl e, quadrivalent, preservative free [facility] 07-11-2015 influenza, seasonal, injectable [facility] 07-11-2015 influenza, seasonal, injectable, preservative free Adriano Pendlebury SMELLER.TOOL PROFILING MACHINE SET UP OPERATOR Work Phone: [facility] 08-15-2014 Influenza virus vaccine [facility] 08-15-2014 influenza, seasonal, injectable, preservative free Adriano Pendlebury SMELLER.TOOL PROFILING MACHINE SET UP OPERATOR Work Phone: [facility] 08-15-2014 Pneumococcal Vaccine [facility] Work Phone: 08-15-2014 pneumococcal vaccine , unspecified formulation [facility] 08-08-2014 pneumococcal polysaccharide vaccine, 23 valent Aleksandar Jones MD Work Phone: [facility] 07-27-2014 influenza, seasonal, injectable Aleksandar Jones MD Work Phone: [facility] Work Phone: 01-13-2013 tetanus toxoid, redu regino diphtheria toxoid, and acellular pertussis vaccine, adsorbed Aleksandar Jones MD Work Phone: [facility] Work Phone: 08-05-2011 influenza virus vaccine, unspecified formulation Aleksandar Jones MD Work Phone: [facility] Work Phone: 08-22-2010 influenza virus vaccine, unspecified formulation Aleksandar Jones MD Work Phone: [facility] Work Phone: 1965 influenza, seasonal, injectable Aleksandar Jones MD Work Phone: [facility] Payers Date Payer Category Payer Unknown [id number] 2024 Unknown [id number] 2024 Self-pay [id number] 2024 Medicare (Managed Care) 1.2. [id number] 2024 Unknown [id number] 2020 Medicaid [id number] 2020 Medicare [id number] 2017 Medicaid [id number] 2016 Medicare [id number] 1990 Medicare [id number] 1989 Medicare [id number] Unknown [id number] Unknown [id number] 2.16.8 40.1.297377.3.579.2.462 Unknown [id number] 2.16.8 40.1.744099.3.579.2.462 Unknown [id number] 2.16.8 40.1.503245.3.579.2.462 Unknown [id number] 2.16.8 40.1.774771.3.579.2.462 Unknown [id number] 2.16.8 40.1.258667.3.579.2.462 Unknown [id number] 2.16.8 40.1.137777.3.579.2.462 Unknown [id number] 2.16.8 40.1.807132.3.579.2.462 Unknown [id number] 2.16.8 40.1.253785.3.579.2.462 Unknown [id number] 2.16.8 40.1.977618.3.579.2.462 Unknown [id number] 2.16.8 40.1.368477.3.579.2.462 Unknown [id number] 2.16.8 40.1.367591.3.579.2.462 Unknown [id number] 2.16.8 40.1.191053.3.579.2.462 Unknown [id number] 2.16.8 40.1.733703.3.579.2.462 Unknown [id number] 2.16.8 40.1.036951.3.579.2.462 Unknown [id number] 2.16.8 40.1.087625.3.579.2.462 Unknown [id number] 2.16.8 40.1.694102.3.579.2.462 Unknown [id number] 2.16.8 40.1.073416.3.579.2.462 Unknown [id number] 2.16.8 40.1.632418.3.579.2.462 Unknown [id number] 2.16.8 40.1.508352.3.579.2.462 Unknown [id number] 2.16.8 40.1.222876.3.579.2.462 Unknown [id number] 2.16.8 40.1.183434.3.579.2.462 Unknown [id number] 2.16.8 40.1.073865.3.579.2.462 Unknown [id number] 2.16.8 40.1.949011.3.579.2.462 Unknown [id number] 2.16.8 40.1.644739.3.579.2.462 Unknown [id number] 2.16.8 40.1.583644.3.579.2.462 Unknown [id number] 2.16.8 40.1.470599.3.579.2.462 Unknown [id number] 2.16.8 40.1.826195.3.579.2.462 Social History Date Type Detail Facility Start: 07-30-2021 End: 12-13-2023 Tobacco smoking status [facility] Unknown if ever smoked [facility] Start: 11-16-2019 None [facility] Start: 11-16-2019 Roommate [facility] Start: 09-10-2020 Non-smoker [facility] Start: 1965 Sex Assigned At Female [facility] Start: 01-25-2014 End: 06-21-2025 Tobacco smoking status MEIS Ex-smoker [facility] Start: 01-11-1994 End: 01-11-2014 History of tobacco use Current smoker [facility] Start: 01-11-1994 End: 01-11-2014 History of tobacco use Cigarette Smoker [facility] Start: 01-25-2014 End: 03-12-2023 Cigarettes smoked current (pack per day) - Reported 2 [facility] Start: 01-25-2014 End: 07-06-2024 Tobacco use and exposure Smokeless tobacco non-user [facility] Start: 09-26-2021 End: 06-23-2025 Alcohol intake Current non-drinker of alcohol (finding) [facility] Start: 06-19-2018 History SDOH Alcohol Frequency 1 [facility] Start: 06-26-2018 History SDOH Social Connections Phone 5 [facility] Start: 06-26-2018 History SDOH Social Connections Get Together 3 [facility] Start: 06-26-2018 History SDOH Social Connections Living 7 [facility] Start: 06-26-2018 History SDOH Physica l Activity DPW 4 [facility] Start: 06-19-2018 End: 06-26-2018 History SDOH Physical Activity MPS 2 [facility] Start: 06-26-2018 Education 13 [facility] Start: 1965 Sex Assigned At Not on file [facility] Start: 09-18-2020 End: 08-08-2022 Exposure to SARS-CoV-2 (event) Not sure [facility] Start: 06-26-2018 End: 03-12-2023 Social connection and isolation panel [facility] Start: 09-13-2012 Attends [employer] Not on file [facility] Are you now , , , , never or living with a partner? Never [facility] How often to you hav e a drink containing alcohol? Never [facility] Do you feel stress - tense, restless, nervous, or anxious, or unable to sleep at night because your mind is troubled all the time - these days [OSQ] Only a little [facility] (I/We) worried whevivi er (my/our) food would run out before (I/we) got money to buy more. Never true [facility] Start: 12-21-2024 End: 01-10-2025 Sex Female (finding) [facility] Medical Equipment Procedure Code Equipment Code Equipment Original Text Equipment Identifier Dates [id number], [id number], [id number], [id number], [id number], [id number], [id number], [id number], [id number], [id number], [id number], [id number], [id number], [id number], [id number], [id number] Start: 01-23-2015 End: 06-09-2024 Comment on above: [...] from the original. 04/27/18 A1C 7.5 at [facility] Personal health goal Comment on above: Formatting of this n ote might be different from the original. 04/27/18 A1C 7.5 at [facility] Functional Status Date Assessment Result Facility 11-12-2024 Functional status Bedrest [facility] Work Phone: 08-16-2023 Functional status Activity Abili ty Independent [facility] Work Phone: 08-15-2023 Functional status Ambulates [facility] Work Phone: 05-12-2015 Are you deaf, or do you have serious difficulty hearing No 05/12/2015 1:40 PM EDT [facility] No [facility] 05-12-2015 Are you blind, or do you have serious difficulty seeing, even when wearing glasses No 05/12/2015 1:40 PM EDT Nelly [facility] No [facility] 05-12-2015 Do you have serious difficulty walking or climbing stairs No 05/12/2015 1:40 PM EDT Nelly [facility] No [facility] 05-12-2015 Do you have difficul ty dressing or bathing No 05/12/2015 1:40 PM EDT Nelly Ceja [facility] No [facility] 05-12-2015 Because of a physica l, mental, or emotional condition, do you have difficulty doing errands alone such as visiting a physician's office or shopping No 05/12/2015 1:40 PM EDT Nelly [facility]ja [facility] No [facility] Mental Status Date Assessment Result Facility 06-23-2025 Cognitive function Voice/Name [facility] Work Phone: 11-12-2024 Cognitive function Voice/Name [facility] Work Phone: 08-16-2023 Cognitive function Voice/Name [facility] Work Phone: 05-12-2015 Because of a physica l, mental, or emotional condition, do you have serious difficulty concentrating, remembering, or making decisions No 05/12/2015 1:40 PM EDT Nelly Ceja [facility] No [facility] Clinical Notes 08-06-2018 to 07-12-2025 Note Date & Type Note Facility 07-12-2025 Progress note [facility] 07-12-2025 Progress note Note Date/Time July 12, 2025 3:25pm [facility] [address] [place] [address] OFFICE VISIT Date of Service: 07/12/25 MR#: [id number] Acct: [id number] Name: BRENDA LE Rep #: [id number] : 1965 Provider: MAKSIM Razo Age/Sex: 59/F Location: [facility] Status: Signed Intake Vital Signs 06/23/25 09:36 Height 5 ft 1 in Intake Visit Reasons: Procedure F/U-Abdominal pain Chief Complaint: Loose stool 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 Smoking Status: Former smoker how long ago [...] Const General: cooperative and comfortable Orientation: alert [facility] Head: normal to inspection Ears: hearing grossly [...] Patient denying abdominal pain and nausea today. Chanceoes have complaints of looser stool which she [...] Cosigner Signature: Date (if applicable) CC: ~ [facility] [place] Work Phone: 1(256) 198-485109-16-2025 Instructions* Patient Instructions* Aleksandar Jones MD - 06/28/2025 2:18 PM EDT We discussed your overall health and care plan: - Venous Insufficiency and Leg Swelling: - You need to wear compression stockings to help manage your leg swelling. I have sent a prescription for compression stockings to your pharmacy. - If you cannot get compression stockings, consider using [employer] as an alternative. - Cholesterol Management: - [...] pharmacy where you received your first dose ([facility]) to schedule this. - Medications: - [...] our office. [facility] Note[facility] History of Present illness Narrative* Aleksandar Jones [...] HISTORY Diagnosis Date Bilateral pneumonia 07/23/2018 Admit [facility]: pneumococcal suspected, neg culture. + rhinovirus [...] 12/19/2016 Normal colonoscopy-10 year follow-up EGD W/O [facility] [email or web address]] SPEC VARICIES INJ 06/23/2025 PAST SURGICAL HISTORY OF 1983 corrective jaw [...] nephropathy, with long-term current use of insulin ([facility]) (E11.21) - Most recent A1c was 6.5% in March, showing improvement. - Order repeat A1c. 9. Schizophreniform disorder, chronic condition ([facility]) (F20.81) - Continues to see psychiatry. - Advised patient to discuss benztropine side effects with psychiatrist. 10. LIDA (obstructive sleep apnea) (G47.33) - Continues to use CPAP. - Continues to see Dr. Ramirez for management. 11. SVT (supraventricular tachycardia) ([facility]) (I47.10) 12. Tachycardia (R00.0) - Seen by cardiology in March; blood pressure and heart rate stable. - Order BNP to monitor cardiac status. 13. Acute diastolic CHF (congestive heart failure) ([facility]) (I50.31) - Normal BNP in [...] to patient) Aleksandar Jones MD Recording using [employer] software for draft documentation of the visit was discussed with the patient/authorized plastic products sales representative; all questions welcomed and answered. Patient/authorized plastic products sales representative agreed to proceed [1] Social History Tobacco Use Smoking status: Former Current packs/day: 0.00 Average packs/day: 2.0 packs/day for 20.0 years (40.0 ttl pk-yrs) Types: Cigarettes Start date: 01/11/1994 Quit date: 01/11/2014 Years since quittin.4 Smokeless tobacco: Never Vaping Use Vaping status: Never Used Substance Use Topics Alcohol use: No Drug use: No Comment: marijunan- Teen yrs, but not now documented in this encounterMer[facility] Consult note Author Andreas Mo [facility] Note Date/Time June 23, 2025 11:01am [facility] Medical Records Department [address] [place] [address] Pre-Anesthesia Evaluation 06/23/25 1043 MR#: [id number] Acct: [id number] Name: BRENDA LE Rep #:[id number] : 1965 59 From: Andreas Mo MD PCP: Dr. Aleksandar Jones MD Status:REG S DC Y Race: C Location: [place] [address] Andreas Mo MD on [...] 07:20 06/21/25 Hct 39.5 % (37-47) 06/21/25 07:06/21/25 Plt Count 226 K/mm3 (150-450) 06/21/25 07:20 [...] COLONOSCOPY, EGD Anesthesia History Anesthesia History - staff respiratory therapist: Anesthesia History - staff respiratory therapist Hx Hospitalization Yes: PNEUMONIA 06/21/25 12:00 Any [...] surgery Any additional information?: Yes NPO since: :30 (Patient finished her prep at 7:30 AM.) Meds taken in AM with sips of water?: No PONV PONV - staff respiratory therapist: PONV - staff respiratory therapist Female Yes 06/21/25 12:00 HX of Motion [...] 06/23/25 09:36 Respiratory Assessment Respiratory Assessment - staff respiratory therapist: Respiratory Tract Infection Hx - staff respiratory therapist Hx Respiratory Tract Infection Yes: COMPLETED ATB 06/21/25 12:00 Any additional information?: Yes Hx Respiratory Tract Infection: Yes (Patient was on antibiotics for airway infection. She has been done with it) History of Anesthesia Respiratory Infection details: Patient was on antibiotics for airway infection. She has been done with it for over a week. STOP Sleep Apnea STOP Sleep Apnea - staff respiratory therapist: STOP Sleep Apnea - staff respiratory therapist Hx Hypertension Yes 06/21/25 12:00 Hx Sleep [...] Tobacco Use History Tobacco Use History - staff respiratory therapist: Tobacco Use History - staff respiratory therapist Tobacco Use Smoking Status Former smoker 06/21/25 12:00 Hx Tobacco Use No 06/21/25 12:00 Years Smoking Packs Smoked per Day Smoking Cessation Date was No - quit smoking greater 06/21/25 12:00 within the last 15 years than 15 years ago Hx Smoking Cessation Date 07/30/20 06/21/25 12:00 Hx Smoking Cessation No 06/21/25 12:00 Counseling Hematologic Medial History Hematologic Hx - staff respiratory therapist: Hematologic Medical Hx - yarn dumper Hx of Blood Transfusion No 06/21/25 12:00 Hx of Transfusion in last 3 No 06/21/25 12:00 Months Date of Last Transfusion (if within last 3 months) Ever experience any problems No 06/21/25 12:00 with transfusion(s)? Specify any problems Hx of Preganancy in last 3 No 06/21/25 12:00 Months Nurse Filling Out Transfusion MGAMANDA 06/21/25 12:00 & Questions: Date: 06/21/25 06/21/25 12:00 Time: 12:03 06/21/25 12:00 Patient unable to answer at this time (ie. confused, unrespo /Reproduction History /Reproductive History - staff respiratory therapist: /Reproductive Hx- staff respiratory therapist Hx Now No 06/21/25 12:00 Gestational Age [...] of cholecystectomy Social History housing: other details: retirement. Smoking Status: Former smoker how long ago [...] MD Cosigner Signature: Date CC: ~ Signed [facility] Work Phone: 1(663) 930-293009-11-2025 Procedure note [facility] Medical Records Department [address] [place] [address] Colonoscopy Report MR#: [id number] Acct: [id number] Name: BRENDA EL Rep #:[id number] : 1965 59 From: Basil Velasquez DO [...] was poor. Procedure Code(s): --- Professional --- 87941, Colonoscopy, flexible; with biopsy, single or multiple CPT copyright 2021 [employer]. All rights reserved. The codes documented in this report are preliminary and upon senior systems engineer review may be revised to meet current compliance requirements. Basil Velasquez DO 06/23/2025 12:45:35 PM This report has been signed electronically. Number of Addenda: 0 Note Initiated On: 06/23/2025 11:38 AM 06/23/25 1245 Date _ Basil Velasquez DO Cosigner Signature: Date (if indicated) CC: Dr. Aleksandar Jones MD; Basil Velasquez DO ~ Date Dictated: 06/23/25 1138 Date Transcribed: Sound Art Instructor: RF Signed [facility]09-11-2025 Procedure note [facility] Medical Records Department [address] [place] [address] Provation Physician Letter MR#: [id number] Acct: [id number] Name: BRENDA LE Rep #:[id number] : 1965 59 From: Basil Velasquez DO PCP: Dr. Aleksandar Jones MD Status:REG S DC 06/23/2025 Aleksandar Jones Re : Colonoscopy procedure for Brenda Le Dear Robert This procedure was performed on June. [...] ~ Date Dictated: 06/23/25 1138 Date Transcribed: Sound Art Instructor: RF Signed [facility]09-11-2025 Procedure note [facility] Medical Records Department [address] [place] [address] EGD Report MR#: [id number] Acct: [id number] Name: BRENDA LE Rep #:[id number] : 1965 59 From: Basil Velasquez DO [...] Dionicio esophagitis Procedure Code(s): --- Professional --- 68647, Small intestinal endoscopy, enteroscopy beyond second portion of duodenum, not including ileum; with biopsy, single or multiple CPT copyright 2021 [employer]. All rights reserved. The codes documented in this report are preliminary and upon senior systems engineer review may be revised to meet current compliance requirements. Basil Velasquez DO 06/23/2025 12:42:38 PM This report has been signed electronically. Number of Addenda: 0 Note Initiated On: 06/23/2025 11:18 AM 06/23/25 1242 Date _ Basil Garner Signature: Date (if indicated) CC: Dr. Aleksandar Jones MD; Basil Velasquez DO ~ Date Dictated: 06/23/25 111 Date Transcribed: Sound Art Instructor: ANIYA Signed [facility]09-11-2025 [facility] [facility] Medical Records Department [address] [place] [address] Provation Physician Letter MR#: [id number] Acct: [id number] Name: BRENDA LE Rep #:[id number] : 1965 59 From: Basil Velasquez DO PCP: Dr. Aleksandar Jones MD Status:REG S DC 06/23/2025 Aleksandar Jones Re : Upper GI endoscopy procedure for Brenda Le Dear Robert This procedure was performed on June. [...] signed electronically. 06/23/25 1242 Date _ Basil Crespoigner Signature: Date (if indicated) CC: Dr. Aleksandar Jones MD; Basil Velasquez DO ~ Date Dictated: 06/23/25 1118 Date Transcribed: Sound Art Instructor: RF Signed [facility]09-11-2025 Consult note [facility] Medical Records Department [address] [place] [address] Anesthesia Postop Eval I 06/23/25 1235 MR#: [id number] Acct: [id number] Name: BRENDA LE Rep #:[id number] : 1965 59 From: Rolf Agudelo CRNA PCP: Dr. Aleksandar Jones MD Status:REG S DC Y Race: C Location: [place] [address] Anesthesia: Postop Eval I Current Vital Signs [...] Eval 1 completed: No 06/23/25 1236 ds HACK SAW OPERATOR> Date _ Rolf Agudelo HACK SAW OPERATOR Cosigner Signature: Date CC: ~ Signed [facility]09-11-2025 History and physical note Author Basil Velasquez [facility] Note Date/Time June 23, 2025 9:56am [facility] Medical Records Department [address] [facility] [place] [address] History & Physical Exam 06/23/25 0954 MR#: [id number] Acct: [id number] Name: BRENDA LE Rep #:[id number] : 1965 59 From: Basil Velasquez DO PCP: Dr. Aleksandar Jones MD Status:REG S DC Location: [place] [address] HPI - General General Date of Admission: [...] was. She has never had an EGD. [facility] Medical History Wears glasses Wears [...] 325 mg PO DAILY@1600 [facility] 07/22/18 06/22/25 History release potassium chloride [...] of cholecystectomy Social History housing: other details: retirement. Smoking Status: Former smoker how long ago [...] Aleksandar Jones MD; Basil Velasquez DO~ Signed [facility] Work Phone: 1(731) 509-869709-11-2025 Consult note [facility] Medical Records Department [address] [place] [address] Pre-Anesthesia Evaluation 06/23/25 1043 MR#: [id number] Acct: [id number] Name: BRENDA LE Rep #:[id number] : 1965 59 From: Andreas Mo MD PCP: Dr. Aleksandar Jones MD Status:REG S DC Y Race: C Location: [place] [address]- ADDENDUM by Dr. Andreas Mo MD on [...] COLONOSCOPY, EGD Anesthesia History Anesthesia History - staff respiratory therapist: Anesthesia History - staff respiratory therapist Hx Hospitalization Yes: PNEUMONIA 06/21/25 12:00 Any [...] sips of water?: No PONV PONV - staff respiratory therapist: PONV - staff respiratory therapist Female Yes 06/21/25 12:00 HX of Motion [...] 06/23/25 09:36 Respiratory Assessment Respiratory Assessment - staff respiratory therapist: Respiratory Tract Infection Hx - staff respiratory therapist Hx Respiratory Tract Infection Yes: COMPLETED ATB 06/21/25 12:00 Any additional information?: Yes Hx Respiratory Tract Infection: Yes (Patient was on antibiotics for airway infection. She has been done with it) History of Anesthesia Respiratory Infection details: Patient was on antibiotics for airway infection. She has been done with it for over a week. STOP Sleep Apnea STOP Sleep Apnea - staff respiratory therapist: STOP Sleep Apnea - staff respiratory therapist Hx Hypertension Yes 06/21/25 12:00 Hx Sleep [...] Tobacco Use History Tobacco Use History - staff respiratory therapist: Tobacco Use History - staff respiratory therapist Tobacco Use Smoking Status Former smoker 06/21/25 12:00 Hx Tobacco Use No 06/21/25 12:00 Years Smoking Packs Smoked per Day Smoking Cessation Date was No - quit smoking greater 06/21/25 12:00 within the last 15 years than 15 years ago Hx Smoking Cessation Date 07/30/20 06/21/25 12:00 Hx Smoking Cessation No 06/21/25 12:00 Counseling Hematologic Medial History Hematologic Hx - staff respiratory therapist: Hematologic Medical Hx - yarn dumper Hx of Blood Transfusion No 06/21/25 12:00 [...] confused, unrespo /Reproduction History /Reproductive History - staff respiratory therapist: /Reproductive Hx- staff respiratory therapist Hx Now No 06/21/25 12:00 Gestational Age [...] of cholecystectomy Social History housing: other details: retirement. Smoking Status: Former smoker how long ago did patient quit smoking: Quit 10 years prior to 08/14/23 presentation, 2 ppd since teen until quit. alcohol intake: never substance use type: does not use Review of Systems (Anesthesia) ROS Narrative System reviewed and no additional complaints, except as documented. 06/23/25 1055 christelle SANDERS> Date _ Andreas Mo MD Cosigner Signature: Date CC: ~ Signed [facility]09-11-2025 History and physical note [facility] Medical Records Department [address] [place] [address] History & Physical Exam 06/23/25 0954 MR#: [id number] Acct: [id number] Name: BRENDA LE Rep #:[id number] : 1965 59 From: Basil Velasquez DO PCP: Dr. Aleksandar Jones MD Status:REG S DC Location: [place] [address] HPI - General General Date of Admission: [...] was. She has never had an EGD. [facility] Medical History Wears glasses Wears [...] 325 mg tablet,delayed 325 mg PO DAILY@1600 [facility] 07/22/18 06/22/25 History release potassium chloride 20 [...] of cholecystectomy Social History housing: other details: retirement. Smoking Status: Former smoker how long ago [...] Aleksandar Jones MD; Basil Friend, DO~ Signed [facility]08-27-2025 Telephone encounter Note* Telephone Encounter - Loree Chen RN - 06/08/2025 4:47 PM EDT Clearance form faxed 05/30/25. Loree Chen RN [facility]08-27-2025 Miscellaneous Notes* Telephone Encounter - Loree Chen RN - 06/08/2025 4:47 PM EDT Clearance form faxed 05/30/25. Loree Chen RN * Telephone Encounter - Loree Chen RN - 05/19/2025 1:09 PM EDT NURSING CHART REVIEW FOR PREOPERATIVE CARDIAC EVALUATION Surgery: Colonoscopy/EGD with MAC Sedation Low Risk Date: 06/23/25 Surgeon: [facility] Chart review: Primary choke reamer: Dr. Renee Patient seen in the last year? Yes - 04/04/25 Recent Cardiac admission since last visit? No On anticoagulation for cardiac indication? No On antiplatelet agents? No Date of last cardiac stent if applicable: Form received via fax and scanned into ihiji. Loree Chen RN Optional? List of low risk surgeries Endoscopies (EGD, colonoscopy) Breast Dental Interventional radiology (drains, lines) Dermatological procedures Thyroid Eye (cataract) Inguinal hernia Gynecological: minor Orthopedic minor (arthroscopic) Reconstructive Superficial surgery Urological minor (cystoscopy, TURP) documented in [facility] encounter[facility] Telephone encounter Note * Telephone Encounter - Aleksandar Jones MD - 06/03/2025 8:12 AM EDT Apparently wears adult pullups due to chronic incontinence. I can find documention of such dating back to [address] Dwight mancilla and Dr Tinajero note. [facility]08-22-2025 Miscellaneous Notes* Telephone Encounter - Aleksandar Jones MD - 06/03/2025 8:12 AM EDT Apparently wears adult pullups due to chronic incontinence. I can find documention of such dating back to [address] Quintanilla note and Dr Tinajero note. documented in this encounterMer[facility]08-07-2025 Telephone encounter Note * Telephone Encounter - Loree Chen RN - 05/19/2025 1:09 PM EDT NURSING CHART REVIEW FOR PREOPERATIVE CARDIAC EVALUATION Surgery: Colonoscopy/EGD with MAC Sedation Low Risk Date: 06/23/25 Surgeon: [facility] Chart review: Primary choke reamer: Dr. Renee Patient seen in the last year? Yes - 04/04/25 Recent Cardiac admission since last visit? No On anticoagulation for cardiac indication? No On antiplatelet agents? No Date of last cardiac stent if applicable: Form received via fax and scanned into ihiji. Loree Chen RN Optional? List of low risk surgeries Endoscopies (EGD, colonoscopy) Breast Dental Interventional radiology (drains, lines) Dermatological procedures Thyroid Eye (cataract) Inguinal hernia Gynecological: minor Orthopedic minor (arthroscopic) Reconstructive Superficial surgery Urological minor (cystoscopy, TURP) [facility]07-30-2025 Telephone encounter Note* Telephone Encounter - Aleksandar Jones MD - 05/11/2025 12:09 PM EDT I will address at next ov. [facility]07-30-2025 Miscellaneous Notes* Telephone Encounter - Aleksandar Jones MD - 05/11/2025 12:09 PM EDT I will address at next ov. * Telephone Encounter - Cristal White RN - 05/11/2025 11:33 AM EDT Laney with [facility] called in with a Statin recommendation. She reports Pt was on Lipitor and it hasn't been renewed since Aug 2024. She states Pt is a diabetic and per the diabetic guidelines should be on a statin. She was asking if provider was going to renew medication. Cristal White RN documented in this encounterMer[facility]07-30-2025 Telephone encounter Note * Telephone Encounter - Cristal White RN - 05/11/2025 11:33 AM EDT Laney with [facility] called in with a Statin recommendation. She reports Pt was on Lipitor and it hasn't been renewed since Aug 2024. She states Pt is a diabetic and per the diabetic guidelines should be on a statin. She was asking if provider was going to renew medication. Cristal White RN [facility]07-29-2025 Evaluation note* Diagnosis Onset Date Resolution Status Admit Date Abdominal pain acute May 10, 2025 12:24pm Nausea acute May 10 12:24pm Constipation noneactive May 10, 2 025 12:24pm [facility] Work Phone: 1(693) 560-290407-29-2025 Evaluation note* Diagnosis Onset Date Resolution Status Admit Date Abdominal pain acute May 10, 2025 12:24pm Nausea acute May 10 12:24pm Constipation noneactive May 10, 2 025 12:24pm Abdominal pain acute June 23, 2025 7:58am Dysphagia acute June 7:58am Nausea acute June 7:58am [facility] Work Phone: 1(629) 309-301907-29-2025 Evaluation note* Diagnosis Onset Date Resolution Status Admit Date Abdominal pain acute May 10, 2025 12:24pm Nausea acute May 10 12:24pm Constipation noneactive May 10, 025 12:24pm Abdominal pain acute June 23, 2025 7:58am Dysphagia acute June 7:58am Nausea acute June 7:58am Abdominal pain acute July 12, 2025 2:48pm Nausea acute June 2:48pm [facility] Work Phone: 1(770) 103-173107-29-2025 Radiology Diagnostic study note [facility] Imaging Services [address] [place] [address] Lung Screening MR#: [id number] Acct: [id number] Name: BRENDA LE Rep #: [id number] : 1965 F 59 From: Adalid Sanchez MD PCP: Dr. Aleksandar Jones MD Status: REG C Study:Low Dose CT Lung Screening Date of Exam : 05/06/25 Exam# [id number] Ordering Dr: Koby Ramirez MD PROCEDURE: LOW [...] use of iterative reconstruction technique). REFERENCE LINK: [employer] Lung-RADS RADIATION DOSE SUMMARY: CTDlvol: 4.02 mGy [...] SCREENING LDCT. Other Significant Findings: Reading Location: [facility] CC: Dr. Koby Ramirez MD; Dr. Aleksandar Jones MD ~ Sound Art Instructor: Signed [facility]06-24-2025 Telephone encounter Note* Telephone Encounter - Alma Smart RN - 04/05/2025 12:55 PM EDT Kaya returned call and given provider's message below with verbalized understanding. Updated contact per Kaya request. [facility]06-24-2025 Miscellaneous Notes* Telephone Encounter - Alma Smart RN - 04/05/2025 12:55 PM EDT Kaya returned call and given provider's message below with verbalized understanding. Updated contact per Kaya request. * Telephone Encounter - Nisha Oneill MA - 04/05/2025 12:45 PM EDT Called phone number for patient and it was for Breanna Payne, listed as her client care manager. Breanna answered and said Brenda now lives in [facility] and to call her legal guardian, Kaya [...] have hepatitis. documented in this encounterMer[facility]06-24-2025 Telephone encounter Note * Telephone Encounter - Nisha Oneill MA - 04/05/2025 12:45 PM EDT Called phone number for patient and it was for Breanna Payne, listed as her client care manager. Breanna answered and said Brenda now lives in [facility] and to call her legal guardian, Kaya Fuller. I lefta message for Kaya to call back and speak with a nurse. When she call back, please advise her of results AND update patient contacts. Thanks Nisha Oneill MA April 05, 2025 12:48 PM [facility]06-24-2025 Telephone encounter Note* Telephone Encounter - Nisha Oneill MA - 04/05/2025 12:32 PM EDT ----- Message from Aleksandar Jones MD sent at 03/31/2025 10:30 AM EDT ----- Let them know ID feels we are ok. No need for any worry or further testing. She does not have hepatitis. [facility]06-23-2025 NoteUniversity [facility]als [facility]06-23-2025 History of Present illness Narrative* Fuentes Renee MD - 04/04/2025 3:44 PM EDT Images from the original note were not included. Fuentes Renee MD Interventional Cardiology [address] [place] [address] [phone] Chief Complaint Patient presents with: Follow Up HISTORY OF PRESENT ILLNESS: Ms. Le is a 59 year old female With tachycardia presenting for follow-up She reports a recent transition from a long term to an assisted living facility, which has [...] HISTORY Diagnosis Date Bilateral pneumonia 07/23/2018 Admit [facility]: pneumococcal suspected, neg culture. + rhinovirus [...] Comment: kasiedenise- Teen yrs, but not now ALLERGIES No [...] 1 capsule by mouth once daily. 30 [id number] aspirin, enteric coated (ASPIRIN, ENTERIC COATED) 325 [...] any errors. documented in this encounterMercy Health [facility]06-18-2025 NoteUniversity [facility]06-18-2025 History of Present illness Narrative* Aleksandar Jones [...] HISTORY Diagnosis Date Bilateral pneumonia 07/23/2018 Admit [facility]: pneumococcal suspected, neg culture. 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 [facility], pt was on metformin for a [...] to patient) Aleksandar Jones MD Recording using [employer] software for draft documentation of the visit was discussed with the patient/authorized plastic products sales representative; all questions welcomed and answered. Patient/authorized plastic products sales representative agreed to proceed documented in this encounterMercy Health [facility]06-17-2025 History of Present illness Narrative* Ritika [...] PATIENT PRESENTS WITH AN IMPLANTABLE OR ATTACHED SITE WORKER: No RADIOLOGY DEPARTMENT: General X-ray: Exam(s) Completed: Chest X-Ray PERIPHERAL IV DATA: Not applicable SIGNED BY: RT Abbe(R) March 29, 2025 10:06 AM documented in this encounterMercy Health [facility]06-17-2025 NoteUniversity [facility]als [facility]06-02-2025 Telephone encounter Note* Telephone Encounter - Adrianne Saldivar LPN - 03/14/2025 4:44 PM EDT No show letter #1 [facility]06-02-2025 Miscellaneous Notes* Telephone Encounter - Adrianne Saldivar LPN - 03/14/2025 4:44 PM EDT No show letter #1 documented in this encounterMercy Health [facility]05-16-2025 Telephone encounter Note * Telephone Encounter - Maye Ferrer LPN - 02/25/2025 9:24 AM EDT Brenda from [facility] calling to notify PCP that patient has moved to assisted living at [facility] on 02/22/2025. [facility]05-16-2025 Miscellaneous Notes* Telephone Encounter - Maye Ferrer LPN - 02/25/2025 9:24 AM EDT Brenda from [facility] calling to notify PCP that patient has moved to assisted living at [facility] on 02/22/2025. documented in this encounterMercy Health [facility]05-09-2025 Telephone encounter Note * Telephone Encounter [...] times daily. Shirley Romero RN [facility]05-09-2025 Miscellaneous Notes* Telephone Encounter - Shirley [...] Romero RN documented in this encounterMercy Health – [facility]05-02-2025 Telephone encounter Note * Telephone Encounter - Joselyn Hendricks MA - 02/11/2025 2:12 PM EDT Kaya informed form ready. Taken to medical records. Joselyn Hendricks MA [facility]05-02-2025 Miscellaneous Notes* Telephone Encounter - Joselyn [...] Eunice Lam documented in this encounterMercy Health – [facility]05-01-2025 Telephone encounter Note * Telephone Encounter - Eunice Lam - 02/10/2025 9:07 AM EDT Guardian brought paperwork back as it still looks incomplete (possibly missing an office note?). Please review and advise. Forms have been placed on nurse's desk. Eunice Lam [facility]04-29-2025 Telephone encounter Note* Telephone Encounter - Joselyn Hendricks MA - 02/08/2025 4:49 PM EDT Form completed and noted per request of Kaya. Placed call to Kaya, cassidy guardian at [facility] with no answer. Left message for return call and informing her form is completed. No fax number on form. Joselyn Hendricks MA [facility]04-29-2025 Miscellaneous Notes* Telephone Encounter - Joselyn Hendricks MA - 02/08/2025 4:49 PM EDT Form completed and noted per request of Kaya. Placed call to Kaya, patients guardian at [facility] with no answer. Left message for [...] healthy food choices will be encouraged and Monicaieto provide a visual reminder to patient of [...] provider's desk. If possible, will give to LEGGER PRESS OPERATOR's to update if agreeable. Nisha Oneill MA [...] Villafana LPN documented in this encounterMercy Health [facility]04-28-2025 Telephone encounter Note * Telephone Encounter - Aleksandar Jones MD - 02/07/2025 8:18 PM EDT She needs the fluid restriction. Carb counting is ok. [facility]04-24-2025 Telephone encounter Note* Telephone Encounter - [...] is allowed to do. Anusha Hansen, RN [facility]04-21-2025 Telephone encounter Note* Telephone Encounter - Nisha Oneill MA - 01/31/2025 3:06 PM EDT Copy of form placed on provider's desk. If possible, will give to LEGGER PRESS OPERATOR's to update if agreeable. Nisha Oneill MA January 31, 2025 3:06 PM [facility]04-21-2025 Telephone encounter Note* Telephone Encounter - [...] Assisted Living. Nel Villafana LPN [facility]04-18-2025 Telephone encounter Note* Telephone Encounter - Adrianne Saldivar LPN - 01/28/2025 12:50 PM EDT Notified Kaya that will be in medical records for order picker. [facility]04-18-2025 Miscellaneous Notes* Telephone Encounter - Adrianne Saldivar LPN - 01/28/2025 12:50 PM EDT Notified Kaya that will be in medical records for order picker. * Telephone Encounter - Eunice Spivey RN - 01/27/2025 11:12 AM EDT Kaya calls and states that she did not receive forms that were faxed. Kaya asking if she can comeinto office and order picker a copy of forms? Please review and advise, Eunice Spivey RN documented in this encounterMercy Health [facility]04-17-2025 Telephone encounter Note * Telephone Encounter - Eunice Spivey RN - 01/27/2025 11:12 AM EDT Kaya calls and states that she did not receive forms that were faxed. Kaya asking if she can comeinto office and order picker a copy of forms? Please review and advise, Eunice Spivey RN [facility]04-15-2025 Telephone encounter Note* Telephone Encounter - [...] January 25, 2025 3:23 PM [facility]04-15-2025 Miscellaneous Notes* Telephone Encounter - Eunice [...] 3:23 PM documented in this encounterMercy Health – [facility]04-14-2025 Telephone encounter Note * Telephone Encounter - Adrianne Saldivar LPN - 01/24/2025 8:21 AM EDT Forms completed and faxed as requested. [facility]04-14-2025 Miscellaneous Notes* Telephone Encounter - Adrianne Saldivar LPN - 01/24/2025 8:21 AM EDT Forms completed and faxed as requested. * Telephone Encounter - Eunice Lam - 01/21/2025 1:55 PM EDT Patient's Guardian, Kaya Fuller, dropped off forms for patient's assisted living facility. Please fax completed forms to Kaya at [phone]. Form placed on nurse's desk. Eunice Lam documented in this encounterMercy Health [facility]04-11-2025 Telephone encounter Note * Telephone Encounter - Eunice Lam - 01/21/2025 1:55 PM EDT Patient's Guardian, Kaya Fuller, dropped off forms for patient's assisted living facility. Please fax completed forms to Kaya at [phone]. Form placed on nurse's desk. Eunice Lam [facility]04-09-2025 History of Present illness Narrative* Samira [...] PATIENT PRESENTS WITH AN IMPLANTABLE OR ATTACHED SITE WORKER: No RADIOLOGY DEPARTMENT: Mammography PERIPHERAL IV DATA: Not applicable SIGNED BY: Dwight Cheema January 19, 2025 2:55 PM documented in this encounterMercy Health [facility]04-09-2025 NoteUniversity [facility]04-08-2025 History of Present illness Narrative* Ivett Blackburn [...] PATIENT PRESENTS WITH AN IMPLANTABLE OR ATTACHED SITE WORKER: No RADIOLOGY DEPARTMENT: Ultrasound PERIPHERAL IV DATA: Not applicable SIGNED BY: Ivett Blackburn RDMS January 18, 2025 2:34 PM documented in this encounterMercy Health [facility]04-08-2025 NoteUniversity Hospitals [facility]04-04-2025 Telephone encounter Note* Telephone Encounter - Frank Joya LPN - 01/14/2025 1:56 PM EDT Foster Care TherapistZaira, notified of results/provider instructions. She verbalized understanding. Frank Joya LPN [facility]04-04-2025 Miscellaneous Notes* Telephone Encounter - Frank Joya LPN - 01/14/2025 1:56 PM EDT Foster Care TherapistZaira, notified of results/provider instructions. She verbalized understanding. [...] is in. documented in this encounterMercy Health – [facility]04-04-2025 Telephone encounter Note * Telephone Encounter [...] weeks -- order is in. [facility]04-02-2025 Telephone encounter Note* Telephone Encounter - Adrianne Saldivar LPN - 01/12/2025 1:19 PM EDT Lab orders are being corrected. Just need to reorder BMP and hepatic or can be CMP. Notify this nurse when ordered please. [facility]04-02-2025 Miscellaneous Notes* Telephone Encounter - Adrianne Saldivar LPN - 01/12/2025 1:19 PM EDT Lab orders are being corrected. Just need to reorder BMP and hepatic or can be CMP. Notify this nurse when ordered please. documented in this encounterMercy Health [facility]04-02-2025 Instructions* Patient Instructions* Aleksandar Jones MD - 01/12/2025 10:49 AM EDT Brenda should be on a liter and half of fluid in 24 hours. No more. Get labs today and then again in one month documented in this encounterMercy Health [facility]04-02-2025 Telephone encounter Note * Telephone Encounter - Adrianne Saldivar LPN - 01/12/2025 10:12 AM EDT Patient in office today to discuss. [facility]04-02-2025 Miscellaneous Notes* Telephone Encounter - Adrianne [...] see her. documented in this encounterMercy Health [facility]04-02-2025 NoteUniversity [facility]04-02-2025 History of Present illness Narrative* Aleksandar Jones [...] Lymph 1.00 - 4.00 k/uL 2.70 2.24 Price% % 4.8 7.9 Abs Price <0.87 k/uL 0.56 0.84 Eosin% % 0.3 [...] HISTORY Diagnosis Date Bilateral pneumonia 07/23/2018 Admit [facility]: pneumococcal suspected, neg culture. 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 Radha Batista APRN.CNP [facility]03-26-2025 Miscellaneous Notes* Telephone Encounter - Radha Batista APRN.CNP - 01/05/2025 12:11 PM EDT Noted. Radha Batista APRN.PAVITHRA * Telephone Encounter - Shirley Romero RN - 01/05/2025 10:14 AM EDT Steph Recio calling from [facility] and asking this office to notify [facility] that pt's Jardiance is being held (per previous note below) until lab recheck next week, in regard to pt's pill-packaging service there. This nurse updated [facility] as requested. Steph also requesting pt's last OV note to be faxed to [facility] along with documentation of order for pt to hold Jardiance, in regard to pt's Residential requirements. Information faxed as requested to FAX #: [phone]. Shirley Romero RN * Telephone Encounter - Frank Joya LPN - 01/04/2025 4:47 PM EDT Spoke /c caregiver, Fransisca, notified of results/provider instructions. Fransisca states they do try to watch her water intake. Fransisca is asking for a new order for compression stockings to be sent to [facility]/t pt threw the last pr [...] next week.The order is in. Radha Batista APRN.TOOL PROFILING MACHINE SET UP OPERATOR documented in this encounterMercy Health [facility]03-26-2025 Telephone encounter Note * Telephone Encounter - Aleksandar Jones MD - 01/05/2025 11:35 AM EDT Let them know ID felt the labs were likely a false positive. They recommended that we repeat some labs again in four to six weeks and if need be they will see her. [facility]03-26-2025 Telephone encounter Note* Telephone Encounter - Shirley Romero RN - 01/05/2025 10:14 AM EDT Steph Recio calling from [facility] and asking this office to notify [facility] that pt's Jardiance is being held (per previous note below) until lab recheck next week, in regard to pt's pill-packaging service there. This nurse updated [facility] as requested. Steph also requesting pt's last OV note to be faxed to [facility] along with documentation of order for pt to hold Jardiance, in regard to pt's Residential requirements. Information faxed as requested to FAX #: [phone]. Shirley Romero RN [facility]03-26-2025 NoteUniversity Hospitals [facility]03-26-2025 History of Present illness Narrative* Jey Brown [...] 05, 2025 documented in this encounterMercy Health [facility]03-25-2025 Telephone encounter Note * Telephone Encounter - Frank Joya LPN - 01/04/2025 4:47 PM EDT Spoke /c caregiver, Fransisca, notified of results/provider instructions. Fransisca states they do try to watch her water intake. Fransisca is asking for a new order for compression stockings to be sent to [facility] pt threw the last pr away. Frank Joya LPN [facility]03-25-2025 Telephone encounter Note* Telephone Encounter - Maye Ferrer LPN - 01/04/2025 2:45 PM EDT Patient Guardian Kaya Chowdaryvenger returned call and went over results, notes from Dr Jones with understanding. Kaya said patient lives in a long term and she is going to have them call and schedule her ultrasound appt, and lab work. [facility]03-25-2025 Miscellaneous Notes* Telephone Encounter - Maye [...] her know documented in this encounterMercy Health [facility]03-25-2025 Telephone encounter Note * Telephone Encounter - Joselyn Hendricks MA - 01/04/2025 1:56 PM EDT Message left for wilber Kirkpatrick to return call. Joselyn Hendricks MA [facility]03-25-2025 Telephone encounter Note* Telephone Encounter - [...] next week.The order is in. Radha Batista APRN.CNP [facility]03-25-2025 Telephone encounter Note* Telephone Encounter - [...] followup and let her know [facility]03-24-2025 Telephone encounter Note* Telephone Encounter - [...] January 03, 2025 9:03 AM [facility]03-24-2025 Miscellaneous Notes* Telephone Encounter - Alma [...] 9:03 AM documented in this encounterMercy Health [facility]03-21-2025 Telephone encounter Note * Telephone Encounter - Edel Katz LPN - 12/31/2024 1:31 PM EDT Patient notified of results, verbalizes understanding of instructions. Edel Katz LPN [facility]03-21-2025 Miscellaneous Notes* Telephone Encounter - Edel Katz LPN - 12/31/2024 1:31 PM EDT Patient notified of results, verbalizes understanding of instructions. Edel Katz LPN * Telephone Encounter - HaRadha brown APRN.CNP - 12/31/2024 1:01 PM EDT Can please let patient know that I received her lab results. Her sodium is a little low. Please make sure she isn't drinking too much water and follow her restriction. Recheck lab in 1-2 weeks. documented in this encounterMercy Health [facility]03-21-2025 Telephone encounter Note * Telephone Encounter - Radha Batista APRN.CNP - 12/31/2024 1:01 PM EDT Can please let patient know that I received her lab results. Her sodium is a little low. Please make sure she isn't drinking too much water and follow her restriction. Recheck lab in 1-2 weeks. [facility]03-21-2025 Telephone encounter Note* Telephone Encounter - Eunice Spivey RN - 12/31/2024 10:53 AM EDT Patient notified of results and provider's instructions. Patient verbalizes understanding. Eunice Spivey RN [facility]03-21-2025 Miscellaneous Notes* Telephone Encounter - Eunice [...] be sure. documented in this encounterMercy Health – [facility]03-20-2025 Telephone encounter Note * Telephone Encounter - Cristal White RN - 12/30/2024 4:52 PM EDT Called and left a message for the Patient to call back and ask for a nurse to receive the providersmessage. Cristal White RN [facility]03-20-2025 NoteUniversity Hospitals Parma Medical Center03-20-2025 History of Present illness Narrative* Alexandra Kemp - 12/30/2024 4:24 PM EDT POPULATION HEALTH NAVIGATION OUTREACH Action/[facility] Support: Called pt to schedule an appt in Pain Management. PT was not in. Jerome fall took down the message for the pt to call [phone]. Stated that the number I called is for [facility]. Any agent can assist with scheduling Reason for Outreach Care Gap/HCC or Scheduling Wellness Visits Care Gaps due: N/A Patient Contacted: Unable or unnecessary to reach patient: Left message Navigation Signature: Alexandra Kemp December 30, 2024 4:24 PM documented in this encounterMercy Health [facility]03-20-2025 Telephone encounter Note * Telephone Encounter - Aleksandar Jones MD - 12/30/2024 1:11 PM EDT Her liver is better. Her hep b studies are equivocal. May be in error or could have had hep b in the past. Repeat full hep b panel however to be sure. [facility]03-20-2025 Telephone encounter Note* Telephone Encounter - [...] Ferrer LPN December 30, 2024 10:03 AM T [facility]03-20-2025 Miscellaneous Notes* Telephone Encounter - Maye [...] 10:03 AM documented in this encounterMercy Health [facility]03-18-2025 NoteUniversity Hospitals Parma Medical Center03-18-2025 History of Present illness Narrative* Aleksandar Jones [...] Abs Lymph 1.00 - 4.00 k/uL 2.33 Price% % 6.9 Abs Price <0.87 k/uL 0.76 Eosin% % 0.1 Abs [...] HISTORY Diagnosis Date Bilateral pneumonia 07/23/2018 Admit [facility]: pneumococcal suspected, neg culture. + rhinovirus [...] Jones MD documented in this encounterMercy Health – [facility]03-11-2025 Discharge summary [facility] Medical Records Department [address] [place] [address] Emergency Department Summary 12/21/24 MR#: [id number] Acct: [id number] Name: BRENDA LE Rep #:[id number] : 1965 59 From: Babak Garcia DO PCP: Shelia Salmon, HARMONICA MAKER Status:REG ER Location: ED HPI History [...] as her lungs were clear for them. [facility] Medical History Obesity (BMI 30-39.9) Hyponatremia Leukocytosis [...] 325 mg tablet,delayed 325 mg PO DAILY@1600 [facility] 07/22/18 07/30/21 History release omeprazole [...] of cholecystectomy Social History housing: other details: retirement. Smoking Status: Former smoker how long ago [...] H Lymph % (Auto) Cancelled 8.6 L Price % (Auto) Cancelled 4.7 Eos % (Auto) [...] Drop Cells Cancelled Ovalocytes Cancelled Stomatocytes Cancelled Mtz-[place] Bodies Cancelled Colmar Cells Cancelled Bite Cells Cancelled Crenated Cell [...] Clarity Clear Urine pH 6.5 Ur Specific Rosser 1.010 Urine Protein 15 H Urine Glucose [...] (Auto) Neut % (Auto) Lymph % (Auto) Price % (Auto) Eos % (Auto) Baso % [...] Target Cells Tear Drop Cells Ovalocytes Stomatocytes Mtz-[place] Bodies Colmar Cells Bite Cells Crenated Cell Acanthocytes (Spur) [...] Color Urine Clarity Urine pH Ur Specific Rosser Urine Protein Urine Glucose (UA) Urine Ketones Urine Occult Blood Urine Nitrite Urine Bilirubin Urine Urobilinogen Ur Leukocyte Esterase Urine RBC Urine WBC Ur Squamous Epith Cells Urine Bacteria Urine Mucus Radiography Diagnostic Testing: Clinical Impression(s) from Imaging Studies Chest X-Ray 12/21/24 08:48 IMPRESSION: Pulmonary venous congestion. Reading Location: [facility] Discharge Plan Triage Chief Complaint: Shortness of [...] Care Provider: Shelia Salmon Referrals: Shelia Salmon, HARMONICA MAKER [Primary Care Provider] - Activity Restrictions/Additional Instructions: You tested positive for COVID-19 here in the emergency department. Start the steroid that was sent to your pharmacy tomorrow as you were given a dose here today already. Use Zofran as needed for nausea. Ensure adequate hydration. Return with worsening symptoms or any concerns. Follow-up with your doctor in outpatient setting. Print Language: Tuvaluan Disposition Disposition: Home, Self Care What to do if you have Problems For any increased pain, shortness of breath, bleeding, nausea or vomiting, chestpain, or any unexpected problems, contact your Primary Care Provider. Call [facility] ([phone]) or report tothe closest Emergency Room. Call 911 if necessary. 12/21/24 1214 Cosigner Signature (if applicable): CC: ESEQUIEL Salmon ~ Signed [facility]03-11-2025 Radiology Diagnostic study note [facility] Imaging Services [address] [place] [id number] Chest PA and Lateral MR#: [id number] Acct: [id number] Name: BRENDA LE Rep #: [id number] : 1965 F 59 From: Naomi Carlos MD PCP: ESEQUIEL Headley Status: REG ER Study:Chest PA and Lateral Date of Exam: 12/21/24 Exam# [id number] Ordering Dr: Geena Garcia DO EXAM: XR Chest, 2 Views CLINICAL INDICATION: SOB TECHNIQUE: Frontal and lateral views of the chest. COMPARISON: No relevant prior studies available. FINDINGS: LUNGS AND PLEURAL SPACES: Pulmonary venous congestion. No consolidation. No pneumothorax. HEART: Unremarkable. No cardiomegaly. MEDIASTINUM: Unremarkable. Normal mediastinal contour. BONES/JOINTS: Unremarkable. No acute fracture. RAD/Chest PA and Lateral IMPRESSION: Pulmonary venous congestion. Reading [facility] CC: ESEQUIEL Salmon; Dr. Babak Garcia DO ~ Sound Art Instructor: Signed [facility]02-26-2025 Telephone encounter Note* Telephone Encounter - Eunice Spivey RN - 12/08/2024 4:20 PM EST Ivett from [facility] calls and states that she knows medication [...] December 08, 2024 4:21 PM [facility]02-26-2025 Miscellaneous Notes* Telephone Encounter - Eunice Spivey RN - 12/08/2024 4:20 PM EST Ivett from [facility] calls and states that she knows medication [...] 4:21 PM documented in this encounterMercy Health – The [facility]02-26-2025 Telephone encounter Note * Telephone Encounter - Frank Joya LPN - 12/08/2024 9:41 AM EST TC to pt, spoke with caregiver, Breanna. Notified of results/provider response. Breanna verbalized understanding. Frank Joya LPN [facility]02-26-2025 Miscellaneous Notes* Telephone Encounter - Frank Joya LPN - 12/08/2024 9:41 AM EST TC to pt, spoke with caregiver, Breanna. Notified of results/provider response. Breanna verbalized understanding. Frank Joya LPN * Telephone Encounter - Radha Batista APRN.CNP - 12/07/2024 5:40 PM EST Can please let patient know that her chest xray was normal. Radha Batista APRN.PAVITHRA documented in this encounterMercy Health – [facility]02-25-2025 Telephone encounter Note * Telephone Encounter - Radha Batista APRN.CNP - 12/07/2024 5:40 PM EST Can please let patient know that her chest xray was normal. Radha Batista APRN.CNP [facility]02-25-2025 History of Present illness Narrative* Katie [...] PATIENT PRESENTS WITH AN IMPLANTABLE OR ATTACHED SITE WORKER: No RADIOLOGY DEPARTMENT: General X-ray: Exam(s) Completed: Chest X-Ray PERIPHERAL IV DATA: Not applicable SIGNED BY: Nancy Pretty December 07, 2024 11:52 AM documented in this encounterMercy Health – [facility]02-25-2025 NoteUniversity Hospitals Par[facility] Center02-25-2025 Instructions* Patient Instructions* Radha Batista APRN.CNP - 12/07/2024 10:35 AM EST Get the chest xray. Start the tylenol 650 mg twice daily. Recheck in 2-4 weeks. documented in this encounterMercy Health – [facility]02-25-2025 NoteUniversity Hospitals [facility] Center02-25-2025 History of Present illness Narrative* Radha Batista [...] HISTORY Diagnosis Date Bilateral pneumonia 07/23/2018 Admit [facility]: pneumococcal suspected, neg culture. + rhinovirus Constipation COPD (chronic obstructive pulmonary disease) (HCC) Diabetes 1.5, managed as type 2 ([facility]) found at [facility], pt was on metformin for a [...] Batista APRN.PAVITHRA documented in this encounterMercy Health – [facility]02-21-2025 Telephone encounter Note * Telephone Encounter - Frank Joya LPN - 12/03/2024 3:10 PM EST Pt notified. She verbalized understanding. Frank Joya LPN [facility]02-21-2025 Miscellaneous Notes* Telephone Encounter - Frank [...] Spivey RN documented in this encounterMercy Health – The Jewish Hospital02-21-2025 Telephone encounter Note * Telephone Encounter - Radha Batista APRN.PAVITHRA - 12/03/2024 2:03 PM EST Ultrasound of the legs was normal. [facility]02-21-2025 Telephone encounter Note* Telephone Encounter - Eunice Spivey RN - 12/03/2024 9:46 AM EST Patient calling and asking about ultrasound results. Please review and advise, Eunice Spivey RN [facility]02-17-2025 Telephone encounter Note* Telephone Encounter - Cristal White RN - 11/29/2024 8:57 AM EST Pts healthcare corporate account director Breanna called in to go over dates and times of Pts upcoming appointments. Went over these with her and where the Vascular study was located. [facility]02-17-2025 Miscellaneous Notes* Telephone Encounter - Cristal White RN - 11/29/2024 8:57 AM EST Pts healthcare corporate account director Breanna called in to go over dates and times of Pts upcoming appointments. Went over these with her and where the Vascular study was located. documented in this encounterMercy Health – The [facility]02-13-2025 Telephone encounter Note * Telephone Encounter - Shelia Salmon APRN.CNP - 11/25/2024 5:41 PM EST The following approved medication requests have been transmitted electronically. Requested Prescriptions Pending Prescriptions Disp Refills docusate sodium (COLACE) 100 mg capsule 60 capsule 5 Sig: Take 1 capsule by mouth two times a day. Shelia Salmon APRN.CNP [facility]02-13-2025 Miscellaneous Notes* Telephone Encounter - Shelia [...] Romero RN documented in this encounterMercy Health – The Jewish Hospital02-13-2025 Telephone encounter Note * Telephone Encounter [...] two times a day. Shirley Romero RN [facility]02-12-2025 Telephone encounter Note* Telephone Encounter - Shirley [...] of breath. Shirley Zuniga 2024 2:40 PM [facility]02-12-2025 Miscellaneous Notes* Telephone Encounter - Shirley Serna [...] 2:40 PM documented in this encounterMercy Health – The Jewish Hospital01-31-2025 [facility] Medical Records Department [address] [place] [address] Discharge Summary 11/12/24 1040 MR#: [id number] Acct: [id number] Name: BRENDA LE Rep #: [id number] : 1965 58 From: Ana Lilia Lebron DO PCP: ESEQUIEL Headley Status:DIS IN Location: [facility] [id number] Providers Date of Admission: 11/09/24 Date of [...] female [facility] long term with fever and cough. She was seen at an urgent care and told to come to the emergency room when it was discovered that the odd jobs day worker stated they could not give her any [...] and inpatient treatment, she was admitted to [place] [address] and initially placed on 2 antibiotics, I evaluated the patient and did not feel she needed IV vancomycin and stop this medication. Patient improved during her hospitalization was weaned off oxygen eventually. On 11/12/2024, patient was seen and examined: On examination she appea (more content notincluded)...[facility]01-29-2025 Telephone encounter Note* Telephone Encounter - Frank Joya LPN - 11/10/2024 9:58 AM EST Phoned jesse Pollard, notified of provider instructions. She verbalized understanding. [place] Joya LPN [facility]01-29-2025 Miscellaneous Notes* Telephone Encounter - Frank Joya LPN - 11/10/2024 9:58 AM EST Phoned jesse Pollard, notified of provider instructions. She verbalized understanding. [...] Bedolla LPN - 11/10/2024 9:24 AM EST Latrice [facility]- [facility] is calling asking about the mucinex. PATIENT already takes 2 tablets every morning. Pharmacy is asking if you wish for patient to take the 2 tablets twice daily for just a shortperiod of time? They wanted to make sure the office knew patient was already taking 2 a day. Please review and advise further. Nerissa Bedolla LPN documented in this encounterMercy Health – The Jewish [facility]01-29-2025 Telephone encounter Note * Telephone Encounter - Radha Batista APRN.PAVITHRA - 11/10/2024 9:34 AM EST Thank you for the update. No, we did not have the mucinex on our medication list. I updated her medication list. Yes, can we please increase it to twice daily for 10 days, then resume the previous dose. Radha Batista APRN.PAVITHRA [facility]01-29-2025 Telephone encounter Note* Telephone Encounter - Nerissa Bedolla LPN - 11/10/2024 9:24 AM EST [facility] Huang is calling asking about the mucinex. PATIENT already takes 2 tablets every morning. Pharmacy is asking if you wish for patient to take the 2 tablets twice daily for just a shortperiod of time? They wanted to make sure the office knew patient was already taking 2 a day. Please review and advise further. Nerissa Bedolla LPN [facility]01-29-2025 Evaluation note* Diagnosis Onset Date Resolution Status Admit Date Schizophrenia acute October 11:49pm COPD exacerbation inactive November 09, 2024 11:49pm Hyponatremia inactive October 11:49pm Leukocytosis inactive October 11:49pm Obesity (BMI 30-39.9) inactive Oct 11:49pm Pneumonia inactive November 09, 2024 11:49pm Respiratory insufficiency inactive November 09, 2024 11:49pm [facility] Work Phone: 1(836) 702-743001-28-2025 History of Present illness Narrative* Neelima Amador [...] PATIENT PRESENTS WITH AN IMPLANTABLE OR ATTACHED SITE WORKER: No RADIOLOGY DEPARTMENT: General X-ray: Exam(s) Completed: Chest X-Ray PERIPHERAL IV DATA: Not applicable SIGNED BY: RT Sandra(R) November 09, 2024 5:34 PM documented in this encounterCleveland [id number] NoteUniversity Hospitals Parma [facility] Center01-28-2025 NoteUniversity Hospitals [facility]01-28-2025 History of Present illness Narrative* Zaira Mancilla APRN.TOOL PROFILING MACHINE SET UP OPERATOR - 11/09/2024 5:24 PM EST CC: Patient [...] HISTORY Diagnosis Date Bilateral pneumonia 07/23/2018 Admit [facility]: pneumococcal suspected, neg culture. 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 Mouth/Throat: Lips: Somis. Mouth: Mucous membranes are moist. Pharynx: Posterior [...] was decided to take the patient to [facility] ED due to the inability of securing the antibiotics this evening and administering breathing treatments required. Report called to [facility] ED, spoke with ED attending. 2. [...] A&B MOLECULAR (POC) Maty Atkinson TEACHING PROVIDER (Physician/PA/SMELLER) NOTE OF PERSONAL INVOLVEMENT IN CARE: I have personally seen and examined the patient and performed the medical decision-making components. I have reviewed the Advanced Practice Registered Nurse (SMELLER) Student's documentation and verified the findings in the note as written. Any additions or changes are noted in bold/italics. Signature: Zaira Mancilla Date: 11/09/2024 Time: 7:23 PM documented in this encounterMercy Health – The Jewish Hospital01-28-2025 Telephone encounter Note * Telephone Encounter - [place] Joya LPN - 11/09/2024 4:08 PM EST Spoke /c respiratory director at long term, notified of provider response. She verbalized understanding. [place] Joya LPN [facility]01-28-2025 Miscellaneous Notes* Telephone Encounter - [place] Joya LPN - 11/09/2024 4:08 PM EST Spoke /c respiratory director at long term, notified of provider response. [...] - 11/09/2024 2:30 PM EST Breanna with [facility] calls with patient. Below messages reviewed with [...] for something OTC can be sent to [facility] as they can't give anything topatient that is not prescribed and she is asking for something for symptoms. Call back number is [phone]. Anusha Hansen RN * Telephone Encounter - Татьяна Escobar MA - 11/08/2024 10:13 AM EST Tried to reach pt, line just rings. Will try again later. Татьяна Escobar MA * Telephone Encounter - Radha Batista APRN.PAVITHRA [...] is good! documented in this encounterMercy Health [facility]01-28-2025 Telephone encounter Note * Telephone Encounter [...] a swab for covid/flu/rsv. Radha Batista APRN.PAVITHRA [facility]01-28-2025 Telephone encounter Note* Telephone Encounter - Anusha Hansen RN - 11/09/2024 2:30 PM EST Breanna with [facility] calls with patient. Below messages reviewed with [...] for something OTC can be sent to [facility] as they can't give anything topatient that is not prescribed and she is asking for something for symptoms. Call back number is [phone]. Anusha Hansen RN [facility]01-27-2025 Telephone encounter Note* Telephone Encounter - Татьяна Escobar MA - 11/08/2024 10:13 AM EST Tried to reach pt, line just rings. Will try again later. Татьяна Escobar MA [facility]01-24-2025 Telephone encounter Note* Telephone Encounter - Radha [...] Her bad cholesterol is good! [facility]01-21-2025 History of Present illness Narrative* Neelima [...] PATIENT PRESENTS WITH AN IMPLANTABLE OR ATTACHED SITE WORKER: No RADIOLOGY DEPARTMENT: General X-ray: Exam(s) Completed: Spine X-Ray(s): Lumbar AP / LAT / L5-S1 PERIPHERAL IV DATA: Not applicable SIGNED jamaica Reeves November 02, 2024 3:28 PM documented in this encounterMercy Health [facility]01-21-2025 NoteUniversity Hospitals Parma Medical Center01-21-2025 Instructions* Patient Instructions* Radha Batista APRN.CNP - 11/02/2024 2:47 PM EST Get the labs. Get the xray. Schedule the circulation test. Increase the afternoon gabapentin to 200 mg. documented in this encounterMercy Health – The [facility]01-21-2025 NoteUniversity Hospitals Parma Medical Center01-21-2025 History of Present illness Narrative* Radha Batista APRN.TOOL PROFILING MACHINE SET UP OPERATOR - 11/02/2024 2:07 PM EST This is [...] HISTORY Diagnosis Date Bilateral pneumonia 07/23/2018 Admit [facility]: pneumococcal suspected, neg culture. 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 Radha Batista APRN.TOOL PROFILING MACHINE SET UP OPERATOR documented in this encounterMercy Health – The Jewish Hospital01-17-2025 Telephone encounter Note * Telephone Encounter [...] October 29, 2024 11:51 AM [facility]01-17-2025 Miscellaneous Notes* Telephone Encounter - Anusha [...] 11:51 AM documented in this encounterMercy Health – The Jewish Hospital12-23-2024 Telephone encounter Note * Telephone Encounter [...] with breakfast. Shirley Romero RN [facility]12-23-2024 Miscellaneous Notes* Telephone Encounter - Shirley [...] Romero RN documented in this encounterMercy Health – The Jewish Hospital12-17-2024 Instructions* Patient Instructions* Radha Batista APRN.PAVITHRA - 09/28/2024 1:40 PM EST Increase the gabapentin to 3 times daily. Recheck in 3 months, sooner if needed. documented in this encounterMercy Health – The [facility]12-17-2024 NoteUniversity Hospitals Parma Medical Center12-17-2024 History of Present illness Narrative* Radha Batista [...] HISTORY Diagnosis Date Bilateral pneumonia 07/23/2018 Admit [facility]: pneumococcal suspected, neg culture. 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 Radha Batista APRN.TOOL PROFILING MACHINE SET UP OPERATOR documented in this encounterMercy Health – The Jewish Hospital12-13-2024 Telephone encounter Note * Telephone Encounter [...] September 24, 2024 8:16 AM [facility]12-13-2024 Miscellaneous Notes* Telephone Encounter - Eunice [...] 8:16 AM documented in this encounterMercy Health – The Jewish [facility]12-09-2024 NoteUniversity Hospitals Parma Medical Center12-09-2024 History of Present illness Narrative* Fuentes Renee MD - 09/20/2024 1:03 PM EST Images from the original note were not included. Fuentes Renee MD Interventional Cardiology [address] [address] [id number] Chief Complaint Patient presents with: yearly check [...] HISTORY Diagnosis Date Bilateral pneumonia 07/23/2018 Admit [facility]: pneumococcal suspected, neg culture. 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 documented in this encounterMercy Health – The Jewish Hospital11-27-2024 Instructions* Patient Instructions* Radha Batista APRN.CNP - 09/08/2024 9:45 AM EST Start the gabapentin. Take nightly X 3 days, then increase to twice daily. Recheck in 3-4 weeks. documented in this encounterMercy Health – The [facility]11-27-2024 NoteUniversity Hospitals Parma Medical Center11-27-2024 History of Present illness Narrative* Radha Batista [...] HISTORY Diagnosis Date Bilateral pneumonia 07/23/2018 Admit [facility]: pneumococcal suspected, neg culture. 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 Radha Batista APRN.TOOL PROFILING MACHINE SET UP OPERATOR documented in this encounterMercy Health – The Jewish Hospital11-19-2024 Telephone encounter Note * Telephone Encounter - Cristal White RN - 08/31/2024 9:39 AM EST Reina from [facility] reports the Basaglar is no longer on [...] August 31, 2024 9:42 AM [facility]11-19-2024 Miscellaneous Notes* Telephone Encounter - Cristal White RN - 08/31/2024 9:39 AM EST Reina from [facility] reports the Basaglar is no longer on [...] 9:42 AM documented in this encounterMercy Health – The Jewish Hospital11-12-2024 Note* Addendum Note - Shelia Salmon APRN.CNP - 08/24/2024 3:52 PM ESTAddended by: SHELIA SALMON on: 08/24/2024 03:52 PM Modules accepted: Orders [facility]11-12-2024 Miscellaneous Notes* Addendum Note - Shelia Salmon APRN.CNP - 08/24/2024 3:52 PM ESTAddended by: SHELIA SALMON on: 08/24/2024 03:52 PM Modules accepted: Orders documented in this encounterMercy Health – The Jewish Hospital11-12-2024 Instructions* Patient Instructions* Shelia Salmon APRN.CNP - 08/24/2024 3:39 PM EST 1) Doxycyline 100 mg 2 x day for 10 days (take with food) 2) Hold iron (Ferex) while on doxycyline 3) Medrol taper 4) Follow up in 10-14 days documented in this encounterMercy Health – The [facility] Hospital11-12-2024 NoteUniversity Hospitals Parma Medical Center11-12-2024 History of Present illness Narrative* Shelia Salmon [...] HISTORY Diagnosis Date Bilateral pneumonia 07/23/2018 Admit [facility]: pneumococcal suspected, neg culture. 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 Radha Batista APRN.CNP [facility]11-08-2024 Miscellaneous Notes* Telephone Encounter - Radha Batista APRN.CNP - 08/20/2024 1:17 PM EST Script sent. Radha Batista APRN.TOOL PROFILING MACHINE SET UP OPERATOR * Telephone Encounter - Carla Ayon LPN - 08/20/2024 8:19 AM EST Dorie from [facility] calls requesting a script for pt for a generic lancing device. The lancets go into this. Script pended. documented in this encounterMercy Health – The Jewish Hospital11-08-2024 Telephone encounter Note * Telephone Encounter - Carla Ayon LPN - 08/20/2024 8:19 AM EST Dorie from [facility] calls requesting a script for pt for a generic lancing device. The lancets go into this. Script pended. [facility]11-06-2024 Telephone encounter Note* Telephone Encounter - Maye Ferrer LPN - 08/18/2024 1:43 PM EST Phoned spoke to Breanna and went over notes from Christian Batista LEGGER PRESS OPERATOR with understanding. Aware rx sent to the pharmacy. [facility]11-06-2024 Miscellaneous Notes* Telephone Encounter - Maye Ferrer LPN - 08/18/2024 1:43 PM EST Phoned spoke to Breanna and went over notes from Christian Batista LEGGER PRESS OPERATOR with understanding. Aware rx sent to the pharmacy. * Telephone Encounter - Radha Batista APRN.PAVITHRA - 08/18/2024 12:46 PM EST Yes, she should have a rescue inhaler for as needed. Script sent. Radha Batista APRN.CNP * Telephone Encounter - Adrianne Saldivar LPN - 08/18/2024 9:22 AM EST Patient does have an albuterol inhaler there but is . She is using her daily inhaler as ordered. * Telephone Encounter - Edilia Monroe - 08/18/2024 8:22 AM EST [facility]idential Caregiver Caller Name: Breanna Call Back Number [phone] Reason for Call: Other Medication question Additional Information: Breanna is asking if Brenda should still have the Rescue inhaler Albuterol sulfate 90 mcg. If so, she would need it refilled at [facility] Please call Breanna back. documented in this encounterMercy Health – The Jewish Hospital11-06-2024 Telephone encounter Note * Telephone Encounter - Radha Batista APRN.CNP - 08/18/2024 12:46 PM EST Yes, she should have a rescue inhaler for as needed. Script sent. Radha Batista APRN.CNP [facility]11-06-2024 Telephone encounter Note* Telephone Encounter - Adrianne Saldivar LPN - 08/18/2024 9:22 AM EST Patient does have an albuterol inhaler there but is . She is using her daily inhaler as ordered. [facility]11-06-2024 Telephone encounter Note* Telephone Encounter - Edilia Monroe - 08/18/2024 8:22 AM EST [facility] Caregiver Caller Name: Breanna Call Back Number [phone] Reason for Call: Other Medication question Additional Information: Breanna is asking if Brenda should still have the Rescue inhaler Albuterol sulfate 90 mcg. If so, she would need it refilled at [facility] Please call Breanna back. [facility] Work Phone: [phone]) [phone] Telephone encounter Note* Telephone Encounter - Frank Joya LPN - 08/16/2024 6:14 PM EST Breanna notified. She verbalized understanding. Frank Joya LPN [facility]11-04-2024 Miscellaneous Notes* Telephone Encounter - Frank Joya LPN - 08/16/2024 6:14 PM EST Breanna notified. She verbalized understanding. Frank Joya LPN * Telephone Encounter - Radha Batista APRN.CNP - 08/16/2024 6:07 PM EST Script sent. Radha Batista APRN.PAVITHRA * Telephone Encounter - Edilia Monroe - 08/16/2024 4:21 PM EST [facility] Caller Name: Breanna Call Back Number [phone] Reason for Call: Order for Cough Drops Additional Information: Breanna is calling because the long term is unable to give the residents any medication without an order and they would like to provide her with cough drops as necessary. They are asking if it be generic in type and if not a [employer] type product. [facility]. documented in this encounterMercy Health – The [facility] Hospital11-04-2024 Telephone encounter Note * Telephone Encounter - Radha Batista APRN.CNP - 08/16/2024 6:07 PM EST Script sent. Radha Batista APRN.CNP [facility]11-04-2024 Telephone encounter Note* Telephone Encounter - Edilia Monroe - 08/16/2024 4:21 PM EST [facility] Caller Name: Breanna Call Back Number [phone] Reason for Call: Order for Cough Drops Additional Information: Breanna is calling because the long term is unable to give the residents any medication without an order and they would like to provide her with cough drops as necessary. They are asking if it be generic in type and if not a [employer] type product. [facility]. [facility] Work Phone: [phone] Telephone encounter Note* Telephone Encounter - Shirley [...] For cholesterol. Shirley Romero RN [facility]10-25-2024 Miscellaneous Notes* Telephone Encounter - Shirley [...] Romero RN documented in this encounterMercy Health – The Jewish Hospital10-19-2024 Telephone encounter Note * Telephone Encounter [...] have any questions, you can call Nurse pharmacy technician infusion back. [facility]10-19-2024 Miscellaneous Notes* Telephone Encounter - Barbara [...] have any questions, you can call Nurse pharmacy technician infusion back. documented in this encounterMercy Health – The Jewish Hospital10-19-2024 Telephone encounter Note * Telephone Encounter - Joselyn Hendricks MA - 07/31/2024 11:31 AM EDT Jaime, caregiver informed and given instruction. She verbalized understanding. Joselyn Hendricks MA [facility]10-19-2024 Miscellaneous Notes* Telephone Encounter - Joselyn [...] 11:06 AM EDT Jaime patient child care team lead calling patient had taken another long term [...] Please advise documented in this encounterMercy Health – The Jewish Hospital10-19-2024 Telephone encounter Note * Telephone Encounter - Aleksandar Jones MD - 07/31/2024 11:28 AM EDT See if can monitor bp and heart rate at least twice today. If increased sedation, chest pain, dizziness etc, to ER [facility]10-19-2024 Telephone encounter Note* Telephone Encounter - Maye Ferrer LPN - 07/31/2024 11:06 AM EDT [place] patient child care team lead calling patient had taken another long term [...] also this morning. Please advise [facility]10-19-2024 Telephone encounter Note* Telephone Encounter - [...] notified of above and conferenced to caller. [facility]10-19-2024 Miscellaneous Notes* Telephone Encounter - Malcolm [...] is not aware:Yes. RACHAEL Villavicencio in Dr. Desirs offce was notified of above and conferenced to caller. documented in this encounterMercy Health – The Jewish Hospital10-17-2024 Telephone encounter Note * Telephone Encounter - Petrona Jaimes RN - 07/29/2024 2:13 PM EDT Breanna, caregiver at [facility] calling with request for script for new pair of compression stockings. Pended per previous order. Petrona Jaiems RN [facility]10-17-2024 Miscellaneous Notes* Telephone Encounter - Petrona Jaimes RN - 07/29/2024 2:13 PM EDT Breanna, caregiver at [facility] calling with request for script for new pair of compression stockings. Pended per previous order. Petrona Jaimes RN documented in this encounterMercy Health – The Jewish Hospital10-11-2024 NoteUniversity Hospitals Parma Medical Center10-11-2024 History of Present illness Narrative* Adriano Menezes APRN.TOOL PROFILING MACHINE SET UP OPERATOR - 07/23/2024 9:09 AM EDT Subjective HPI [...] HISTORY Diagnosis Date Bilateral pneumonia 07/23/2018 Admit [facility]: pneumococcal suspected, neg culture. 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[facility]) Simple endometrial hyperplasia without atypia [...] Comment: leisaan- Teen yrs, but not now BP 100/67 [...] Menezes APRN.PAVITHRA documented in this encounterMercy Health – The [facility] Hospital10-10-2024 Telephone encounter Note * Telephone Encounter - Tonie Escobar MA - 07/22/2024 10:41 AM EDT Breanna was notified Tonie Escobar MA [facility]10-10-2024 Miscellaneous Notes* Telephone Encounter - Tonie [...] 07/22/2024 10:14 AM EDT Breanna with the [facility] calls and states that they have [...] Spivey RN documented in this encounterMercy Health – The Jewish Hospital10-10-2024 Telephone encounter Note * Telephone Encounter - Shelia Salmon APRN.CNP - 07/22/2024 10:27 AM EDT They do not need to check blood pressure every day. Maybe once a week would be good. As you alreadyknow, no fast acting insulin at bedtime. [facility]10-10-2024 Telephone encounter Note* Telephone Encounter - Eunice Spivey RN - 07/22/2024 10:14 AM EDT Breanna with the [facility] calls and states that they have [...] and advise, Eunice Spivey RN [facility]10-02-2024 Telephone encounter Note* Telephone Encounter - Adrianne Saldivar LPN - 07/14/2024 2:20 PM EDT Clarified with staff at facility. [facility]10-02-2024 Miscellaneous Notes* Telephone Encounter - Adrianne Saldivar LPN - 07/14/2024 2:20 PM EDT Clarified with staff at facility. * Telephone Encounter - Aleksandar Jones MD - 07/14/2024 12:34 PM EDT It should be as written in [facility]. No hs dose. * Telephone Encounter - Brandy Mark LPN - 07/14/2024 11:17 AM EDT Breanna with with [facility] calling regarding pt's insulin Humalog. They have on orders to be giving the above 4 times per day but it does not mention this to be takenat bedtime. This is not on the prescription in [facility]. Last dose is at dinner. They are questioning if pt needs to be taking this at bedtime and if so what is the sliding scale to go along with this. Please advise Breanna. Brandy Mark LPN documented in this encounterMercy Health – The Jewish Hospital10-02-2024 Telephone encounter Note * Telephone Encounter - Aleksandar Jones MD - 07/14/2024 12:34 PM EDT It should be as written in [facility]. No hs dose. [facility]10-02-2024 Telephone encounter Note* Telephone Encounter - Brandy Mark LPN - 07/14/2024 11:17 AM EDT Breanna with with [facility] calling regarding pt's insulin Humalog. They have on orders to be giving the above 4 times per day but it does not mention this to be takenat bedtime. This is not on the prescription in [facility]. Last dose is at dinner. They are questioning if pt needs to be taking this at bedtime and if so what is the sliding scale to go along with this. Please advise Breanna. Brandy Mark LPN [facility]09-27-2024 Telephone encounter Note* Telephone Encounter - [...] 1 capsule by mouth once daily. Angi Ordoenz LPN July 09, 2024 8:50 AM [facility]09-27-2024 Miscellaneous Notes* Telephone Encounter - Angi [...] 8:50 AM documented in this encounterMercy Health – The [facility] Hospital09-24-2024 Note* Addendum Note - Radha Batista APRN.CNP - 07/06/2024 6:07 PM EDTAddended by: RADHA BATISTA on: 07/06/2024 06:07 PM Modules accepted: Orders [facility]09-24-2024 Miscellaneous Notes* Addendum Note - Radha Batista APRN.CNP - 07/06/2024 6:07 PM EDTAddended by: RADHA BATISTA on: 07/06/2024 06:07 PM Modules accepted: Orders documented in this encounterMercy Health – The Jewish Hospital09-24-2024 Instructions* Patient Instructions* Radha Batista APRN.CNP - 07/06/2024 3:21 PM EDT Return for fasting labwork. Recheck in 3 months, sooner if needed. documented in this encounterMercy Health – The Jewish Hospital09-24-2024 History of Present illness Narrative* Radha [...] HISTORY Diagnosis Date Bilateral pneumonia 07/23/2018 Admit [facility]: pneumococcal suspected, neg culture. + rhinovirus [...] 6MO-64YR, TRIVALENT (AFLURIA, FLULAVAL, FLUVIRIN, FLUZONE) - Delight COVID-19 VACCINE AGE 12+ YR 3. Fatigue, [...] Batista APRN.CNP documented in this encounterMercy Health – The Jewish Hospital09-24-2024 NoteUniversity Hospitals Parma Medical Center09-05-2024 Telephone encounter Note* Telephone Encounter - Shelia [...] with breakfast. Shelia Salmon APRN.CNP [facility]09-05-2024 Miscellaneous Notes* Telephone Encounter - Shelia [...] Romero RN documented in this encounterMercy Health – The Jewish Hospital09-05-2024 Telephone encounter Note * Telephone Encounter [...] with breakfast. Shirley Romero RN [facility]09-04-2024 Telephone encounter Note* Telephone Encounter - Loree Chen RN - 06/16/2024 8:26 AM EDT Pharmacy electronically requests the following refill(s) Requested Prescriptions Pending Prescriptions Disp Refills metoprolol succinate ER (TOPROL XL) 25 mg 24 hr tablet [Pharmacy Med Name: Metoprolol Succinate ER 25MG TB24] 30 tablet Sig: take 1 tablet by mouth every evening Loree Chen RN [facility]09-04-2024 Miscellaneous Notes* Telephone Encounter - Loree Chen RN - 06/16/2024 8:26 AM EDT Pharmacy electronically requests the following refill(s) Requested Prescriptions Pending Prescriptions Disp Refills metoprolol succinate ER (TOPROL XL) 25 mg 24 hr tablet [Pharmacy Med Name: Metoprolol Succinate ER 25MG TB24] 30 tablet Sig: take 1 tablet by mouth every evening Loree Chen RN documented in this encounterMercy Health – The [facility]08-28-2024 Telephone encounter Note * Telephone Encounter [...] Other DM Code E11.21 Insulin: Yes Maye Frerer LPN June 09, 2024 10:05 AM [facility]08-28-2024 Miscellaneous Notes* Telephone Encounter - Maye [...] 10:05 AM documented in this encounterMercy Health – The Jewish Hospital08-08-2024 Telephone encounter Note * Telephone Encounter - Cristal White RN - 05/20/2024 8:49 AM EDT Laxmi with [facility] called and is notified of providers message. She voices understanding. Cristal White RN [facility]08-08-2024 Miscellaneous Notes* Telephone Encounter - Cristal White RN - 05/20/2024 8:49 AM EDT Laxmi with [facility] called and is notified of providers message. She voices understanding. Cristal White RN * Telephone Encounter - Aleksandar Jones MD - 05/19/2024 4:57 PM EDT Sent over new script * Telephone Encounter - Brandy Mark LPN - 05/19/2024 2:43 PM EDT Breanna Sydney. with [facility] she is with pt and we have [...] Mark LPN documented in this encounterMercy Health – The Jewish Hospital08-07-2024 Telephone encounter Note * Telephone Encounter - Aleksandar Jones MD - 05/19/2024 4:57 PM EDT Sent over new script [facility]08-07-2024 Telephone encounter Note* Telephone Encounter - Brandy Mark LPN - 05/19/2024 2:43 PM EDT Breanna Sydney. with [facility] she is with pt and we have [...] staff member. Brandy Mark LPN [facility]08-06-2024 Telephone encounter Note* Telephone Encounter - [...] Spivey RN May 18, 2024 1:15 PM [facility]08-06-2024 Miscellaneous Notes* Telephone Encounter - Eunice [...] 1:15 PM documented in this encounterMercy Health – The Jewish Hospital07-22-2024 Telephone encounter Note * Telephone Encounter - Alma Smart RN - 05/03/2024 12:02 PM EDT [facility] reports insurance will not cover the metronidazole 1%. The insurance is saying they will cover the preferred, which is metronidazole 0.75% Pended. [facility]07-22-2024 Miscellaneous Notes* Telephone Encounter - Alma Smart RN - 05/03/2024 12:02 PM EDT [facility] reports insurance will not cover the metronidazole 1%. The insurance is saying they will cover the preferred, which is metronidazole 0.75% Pended. documented in this encounterMercy Health – The [facility] Hospital07-22-2024 Telephone encounter Note * Telephone Encounter [...] May 03, 2024 8:51 AM [facility]07-22-2024 Miscellaneous Notes* Telephone Encounter - Alma [...] 8:51 AM documented in this encounterMercy Health – The [facility]07-05-2024 Telephone encounter Note * Telephone Encounter [...] April 16, 2024 1:45 PM [facility]07-05-2024 Miscellaneous Notes* Telephone Encounter - Alma [...] 1:45 PM documented in this encounterMercy Health – The [facility]07-05-2024 Telephone encounter Note * Telephone Encounter [...] April 16, 2024 8:43 AM [facility]07-05-2024 Miscellaneous Notes* Telephone Encounter - Eunice [...] 8:43 AM documented in this encounterMercy Health – The Jewish Hospital07-03-2024 Instructions* Patient Instructions* Radha Batista APRN.CNP - 04/14/2024 1:45 PM EDT Start the bactroban ointment three times daily for a week. Let us know if no better/worsening. Make sure to discuss fatigue with sleep medicine next week to see if another sleep study is indicated. documented in this encounterMercy Health – The [facility]07-03-2024 History of Present illness Narrative* Radha [...] HISTORY Diagnosis Date Bilateral pneumonia 07/23/2018 Admit [facility]: pneumococcal suspected, neg culture. 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 Radha Batista APRN.TOOL PROFILING MACHINE SET UP OPERATOR The patient indicates understanding of these issues and agrees with the plan. documented in this encounterMercy Health [facility]06-20-2024 History of Present illness Narrative* Long [...] and treatment included: Therapeutic exercise, Neuromuscular re-education, Self-long term management, Gait training, Patient/Family/Caregiver Education, and General [...] Davis PT documented in this encounterMercy Health – The [facility]06-18-2024 History of Present illness Narrative* Long [...] level seems improved. TREATMENT: Therapeutic Exercise: 1: SnapguideFit StepOne seat #10 x7 minutes resistance level [...] Davis PT documented in this encounterMercy Health – The Jewish Hospital06-18-2024 Instructions* Patient Instructions* Radha Batista APRN.CNP - 03/30/2024 9:16 AM EDT Continue the same medication. Get labs. Recheck in 3 months. documented in this encounterMercy Health – The Jewish Hospital06-18-2024 History of Present illness Narrative* Radha [...] HISTORY Diagnosis Date Bilateral pneumonia 07/23/2018 Admit [facility]: pneumococcal suspected, neg culture. 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 [facility], pt was on metformin for a while but taken off - pt never told if she had DM or not Major depressive disorder, recurrent episode, unspecified Nonspecific elevation of levels of transaminase or lactic acid dehydrogenase (LDH) LIDA (obstructive sleep apnea) Pneumonia Schizophreniform disorder, chronic condition ([facility]) Simple endometrial hyperplasia without atypia [...] as needed for worsening/no improvement. Radha Batista APRN.TOOL PROFILING MACHINE SET UP OPERATOR documented in this encounterMercy Health – The [facility]06-13-2024 History of Present illness Narrative* Long [...] LEVEL OF FUNCTION: TREATMENT: Therapeutic Exercise: 1: SnapguideFit StepOne seat #10 x7 minutes to focus [...] : 1146 Session Stop Time : 1218 MELINDA Del Toro PT documented in this encounterMercy Health – [facility]06-11-2024 History of Present illness Narrative* Long [...] Davis PT documented in this encounterMercy Health – The [facility] Hospital06-07-2024 Telephone encounter Note * Telephone Encounter - Frank Joya LPN - 03/19/2024 3:48 PM EDT Ivett @ [facility] notified. Frank Joya LPN [facility]06-07-2024 Miscellaneous Notes* Telephone Encounter - Frank Joya LPN - 03/19/2024 3:48 PM EDT Ivett @ [facility] pharmacy notified. Frank Joya LPN * Telephone Encounter - Radha Batista APRN.CNP - 03/19/2024 3:29 PM EDT Actually, changed the insulin to just three times daily with meals. Can please let pharmacy know. Radha Batista APRN.CNP * Telephone Encounter - Anusha Hansen RN - 03/19/2024 3:10 PM EDT Ivett with [facility] calls to request updated orders for lancets, [...] Hansen RN documented in this encounterMercy Health – The [facility] Hospital06-07-2024 Telephone encounter Note * Telephone Encounter - Delfina Burns LPN - 03/19/2024 3:29 PM EDT Caregiver given below information. [facility]06-07-[facility]24 Telephone encounter Note* Telephone Encounter - Radha Batista APRN.CNP - 03/19/2024 3:29 PM EDT Actually, changed the insulin to just three times daily with meals. Can please let pharmacy know. Radha Batista APRN.CNP [facility]06-07-2024 Miscellaneous Notes* Telephone Encounter - Delfina [...] time). New orders have been sent to [facility]. Please call us with sugars in 1 week after updating her medication regimen and with status update. Radha Batista APRN.PAVITHRA * Telephone Encounter - Alma Smart RN - 03/18/2024 12:45 PM EDT [facility]- returned call. Given message from PT. [facility] [...] EDT ----- Regarding: Patyient Not Feeling Well [facility] Brenda Mckeon showed up for therapy today, [...] Brady PTA documented in this encounterMercy Health – The [facility] Hospital06-07-2024 Telephone encounter Note * Telephone Encounter [...] Please advise. Anusha Hansen RN [facility]06-07-2024 Telephone encounter Note* Telephone Encounter - Frank Joya LPN - 03/19/2024 2:31 PM EDT SHWETHA Crook to return call to office. Please notify of the following when she returns call to office. Increase Basaglar to 60units at 4pm. Restart Humalog per sliding scale. Check sugars three times daily and call with readings in 1 week. Frank Joya LPN [facility]06-07-2024 Telephone encounter Note* Telephone Encounter - Radha Batista APRN.CNP - 03/19/2024 2:24 PM EDT Can we please call the assisted living and review new orders with them. (The computer system was down at the time of the office visit and was unable to complete at that time). New orders have been sent to [facility]. Please call us with sugars in 1 week after updating her medication regimen and with status update. Radha Batista APRN.PAVITHRA [facility]06-07-[facility] History of Present illness Narrative* Radha [...] but it never made it to the [facility] where she lives. PAST MEDICAL HISTORY: PAST MEDICAL HISTORY Diagnosis Date Bilateral pneumonia 07/23/2018 Admit [facility]: pneumococcal suspected, neg culture. 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 Radha Batista APRN.TOOL PROFILING MACHINE SET UP OPERATOR documented in this encounterMercy Health – The Jewish Hospital06-06-2024 Telephone encounter Note * Telephone Encounter - Alma Smart RN - 03/18/2024 12:45 PM EDT [facility]- returned call. Given message from PT. Ambreen [...] appt for tomorrow with Radha. [facility]06-06-2024 Telephone encounter Note* Telephone Encounter - Adrianne Saldivar LPN - 03/18/2024 12:16 PM EDT Left a message with long term for someone to call and speak with nurse. [facility]06-06-[facility] Telephone encounter Note* Telephone Encounter - Aleksandar Jones MD - 03/18/2024 12:07 PM EDT See below. Can we triage. Likely needs to see one of us [facility]06-06-2024 Telephone encounter Note* Telephone Encounter - Aleksandar Jones MD - 03/18/2024 12:07 PM EDT ----- Message from Jaci Brady PTA sent at 03/18/2024 11:59 AM EDT ----- Regarding: Patyient Not Feeling Well Hello Dr. Jones Brenda Le showed up for therapy today, but she [...] her. Thanks, Jaci Brady PTA [facility]06-06-2024 History of Present illness Narrative* Je Ty, PT - 03/18/2024 11:53 AM EDT Pt arrived to therapy, but was not seen for a treatment today. Pt stated she was not feeling well (felt very weak and achy and had a stomach ache) and had a pale color to her face.Communicated with pt's healthcare corporate account director that is was in the best interest of the pt to not complete a treatment today. MELINDA Del Toro PT documented in this encounterMercy Health [facility]06-04-2024 History of Present illness Narrative* Long Davis, PT - 03/16/2024 11:15 PM EDT Images from the original note were not included. Episode Visit Count: 12 Therapist That Will Accept/Oversee The Plan Of Care: Logn Davis PT Start of Care Date: 01/21/24 [...] Patient to be seen for Therapeutic exercise (52850), Neuromuscular re-education (37338), Manual therapy (92821), Therapeutic activities (05877), Self-long term management (00497), Gait Training (52058), Patient/Family/Caregiver Education, Body Mechanics Training, General Conditioning, [...] Davis PT documented in this encounterMercy Health [facility]05-31-2024 Telephone encounter Note * Telephone Encounter - Rolf Herrera DO - 03/12/2024 3:01 PM EDT Greg I was called last evening by nurse palaeontologist regarding your patient who lives at a [...] the best Thank you Rolf [facility] Work Phone: 1(592) 297-597005-31-2024 Miscellaneous Notes* Telephone Encounter - Rolf Herrera DO - 03/12/2024 3:01 PM EDT Greg I was called last evening by nurse palaeontologist regarding your patient who lives at a [...] you Rolf documented in this encounterMercy Health – The [facility]05-24-2024 Telephone encounter Note * Telephone Encounter - Cristal White RN - 03/05/2024 4:15 PM EDT Melony Pts guardian called and is notified of providers results and instructions. She voices understanding. Faxed copy of Pts medication list and lab orders to her at fax # [phone]. Cristal hWite RN [facility]05-24-2024 Miscellaneous Notes* Telephone Encounter - Cristal White RN - 03/05/2024 4:15 PM EDT Melony Pts guardian called and is notified of providers results and instructions. She voices understanding. Faxed copy of Pts medication list and lab orders to her at fax # [phone]. Cristal White RN * Telephone Encounter - Radha Batista APRN.TOOL PROFILING MACHINE SET UP OPERATOR - 03/05/2024 1:16 PM EDT Can please [...] Batista APRN.CNP documented in this encounterMercy Health – The [facility] Hospital05-24-2024 Telephone encounter Note * Telephone Encounter [...] 2-4 weeks. Orders are in. Radha Batista APRN.PAVITHRA [facility]05-23-2024 History of Present illness Narrative* Long [...] 1144 Session Stop Time : 1224 Jaci Brady, MELINDA Davis PT documented in this encounterMercy Health – The [facility]05-21-2024 History of Present illness Narrative* Long [...] Davis PT documented in this encounterMercy Health – The [facility]05-21-2024 Instructions* Patient Instructions* Radha Batista APRN.CNP - 03/02/2024 9:27 AM EDT Stop the celebrex. Start the relafen. Get labs/urine. Recheck in 1 month, sooner if needed. documented in this encounterMercy Health – The [facility] Hospital05-21-2024 History of Present illness Narrative* Radha [...] HISTORY Diagnosis Date Bilateral pneumonia 07/23/2018 Admit [facility]: pneumococcal suspected, neg culture. + rhinovirus [...] as needed for worsening/no improvement. Radha Batista APRN.TOOL PROFILING MACHINE SET UP OPERATOR documented in this encounterMercy Health – [facility]05-16-2024 History of Present illness Narrative* Long Davis, PT - 02/26/2024 10:46 AM EDT Episode [...] Davis PT documented in this encounterMercy Health – [facility]05-14-2024 Telephone encounter Note * Telephone Encounter [...] Thank you. Edel East RN. [facility]05-14-2024 Miscellaneous Notes* Telephone Encounter - Edel [...] East RN. documented in this encounterMercy Health – The [facility]05-14-2024 History of Present illness Narrative* Long [...] speed this visit. TREATMENT: Therapeutic Exercise: 1: Dumbstruck StepOne seat #10 x6 minutes (1:1 throughout, [...] 1100 Session Stop Time : 1140 Jaci Brady WORKFORCE INVESTMENT ACT CAREER MANAGER Long Davis PT documented in this encounterMercy Health – The [facility]05-09-2024 History of Present illness Narrative* Long [...] rising from a chair, walking, and sleeping. Enmahas progressed toward goals. Patient continues to present [...] Patient to be seen for Therapeutic exercise (61719), Neuromuscular re-education (14429), Manual therapy (58230), Therapeutic activities (47752), Self-long term management (00082), Gait Training (24157), Patient/Family/Caregiver Education, Body Mechanics Training, General Conditioning, [...] Davis PT - 02/19/2024 9:55 AM EDT Program_ID:[id number] Access Code: [email or web address] URL: [email or web address]/ Date: 02-19-2024 Prepared By: Long Davis Program [...] 10 reps documented in this encounterMercy Health – The [facility]05-07-2024 History of Present illness Narrative* Jaci Brady PTA - 02/17/2024 9:07 AM EDT Program_ID:[id number] Access Code: [email or web address] URL: [email or web address]/ Date: 02-17-2024 Prepared By: Long Davis Program [...] fatigued this visit. TREATMENT: Therapeutic Exercise: 1: SnapguideFit StepOne seat #10 x5 minutes (1:1 throughout, [...] Toro PT documented in this encounterMercy Health – The Jewish Hospital05-02-2024 History of Present illness Narrative* Long Davis, PT - 02/12/2024 9:39 AM EDT Episode [...] : 929 Session Stop Time : 1008 Jaci Brady, WORKFORCE INVESTMENT ACT CAREER MANAGER Long Davis PT documented in this encounterMercy Health – The Jewish Hospital04-30-2024 History of Present illness Narrative* Long Davis, PT - 02/10/2024 3:34 PM EDT [...] kyphosis, Rounded shoulders TREATMENT: Therapeutic Exercise: 1: SnapguideFit StepOne seat #10 x5 minutes (Plan of [...] Davis PT documented in this encounterMercy Health – The [facility] Hospital04-25-2024 History of Present illness Narrative* Long [...] 846 Session Stop Time : 926 Jaci Brady, WORKFORCE INVESTMENT ACT CAREER MANAGER Long Davis PT documented in this encounterMercy Health – The Jewish Hospital04-24-2024 Telephone encounter Note * Telephone Encounter - Alma Smart RN - 02/04/2024 4:55 PM EDT Phoned patient and given provider's message below. Patient didn't understand and asked this nurse to give the message to Peg. Reports Peg works there. Gave message to Peg with verbalized understanding. [facility]04-24-2024 Miscellaneous Notes* Telephone Encounter - Alma [...] . Please choose alternative below and send -Fernanda Carbone -Tresiba -Tresiba flextouch Tonie Escobar MA documented in this encounterMercy Health – The Jewish Hospital04-24-2024 Telephone encounter Note * Telephone Encounter - Aleksandar Jones MD - 02/04/2024 4:27 PM EDT Rx sent. Let her know had to change it [facility]04-24-2024 Telephone encounter Note* Telephone Encounter - Tonie Escobar MA - 02/04/2024 2:52 PM EDT Insurance faxed letter stating Lantus Solostar no longer covered . Please choose alternative below and send -Fernanda Carbone -Tresiba -Tresiba flextouch Tonie Escobar MA [facility]04-23-2024 History of Present illness Narrative* Long Davis, СЕРГЕЙ - 02/03/2024 9:35 PM EDT [...] Davis PT - 02/03/2024 3:11 PM EDT Program_ID:[id number] Access Code: [email or web address] URL: [email or web address] Date: 02-03-2024 Prepared By: Long Davis Program [...] 10 reps documented in this encounterMercy Health – The Jewish Hospital04-18-2024 Miscellaneous Notes* Telephone Encounter - Alma Smart RN - 01/29/2024 2:48 PM EDT Patient has been identified by name and date of : Yes, Provider [place] Date 01-29-24 Time 2:49 pm Pharmacy phones for refill(s): Requested Prescriptions Pending Prescriptions Disp Refills potassium chloride ER (KLOR-CON) 20 mEq tablet 30 tablet 5 Sig: Take 1 tablet by mouth once daily. Date of last office visit in primary care: 01/13/2024 Date of next office visit in primary care: 05/04/2024 Please advise. Thank you. Alma Smart RN. documented in this encounterMercy Health – The [facility] Hospital04-10-2024 History of Present illness Narrative* Long [...] Planned: 12 Planned Treatment Interventions: Therapeutic exercise (48961), Neuromuscular re- education (02002), Manual therapy (46729), Therapeutic activities (34151), Self- long term management (28215), Gait Training (14666), Patient/Family/Caregiver Education, Body Mechanics Training, General Conditioning, [...] Home Environment Patient Lives With: Facility Care (retirement with 5 other ladies that "stress me [...] Davis PT - 01/21/2024 11:21 AM EDT Program_ID:[id number] Access Code: [email or web address] URL: [email or web address] Date: 01-21-2024 Prepared By: Long Davis Program Notes Exercises - Hooklying Single Knee to Chest Stretch - 3 x daily - 7 x weekly - sets - 3 reps - Supine Double Knee to Chest Modified - 1 x daily - 7 x weekly - sets - 3 reps documented in this encounterMercy Health – The [facility] Hospital04-02-2024 Instructions* Patient Instructions* Radha Batista APRN.CNP - 01/13/2024 9:45 AM EDT Start the saline spray to the nose twice daily. Stop the meloxicam. Start the celebrex (celecoxib) once daily (for leg pain). Start the docusate twice daily (for constipation). Schedule w/ physical therapy to help with the legs. documented in this encounterMercy Health – The Jewish Hospital04-02-2024 History of Present illness Narrative* Radha [...] HISTORY Diagnosis Date Bilateral pneumonia 07/23/2018 Admit [facility]: pneumococcal suspected, neg culture. 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 For 7 nights. Ayvli-2-LIS-EPA-Fish Oil (FISH OIL) 300-1,000 mg cap Take [...] Once per day. Lancing Device with Lancets (MoneyspyderUCH DELICA PLUS LANC DEV) Check blood sugars [...] Alcohol use: No Drug use: No Comment: jereym- Teen yrs, but not now EXAM: BP [...] as needed for worsening/no improvement. Radha Batista APRN.TOOL PROFILING MACHINE SET UP OPERATOR documented in this encounterMercy Health – The Jewish Hospital03-02-2024 Discharge summary Author Jey Quesada [facility] December 13, 2023 11:08pm Note Date/Time December 13, 2023 6:24 pm [facility] Medical Records Department [address] [place] [address] Emergency Department Summary 12/13/23 MR#: [id number] Acct: [id number] Name: BRENDA LE Shawanda Rep #:[id number] : 1965 58 From: Jey Quesada DO [...] include cholecystectomy. No history of bowel obstruction. [facility] Medical History Anxiety and depression COPD [...] mandibular surgery Social History housing: other details: retirement. Smoking Status: Former smoker how long ago [...] She tested negative today. Will give hersome Zofran as well for home to help with [...] 83.5 H Lymph % (Auto) 8.5 L Price % (Auto) 7.2 Eos % (Auto) 0.3 [...] Clarity Clear Urine pH 6.0 Ur Specific Rosser 1.010 Urine Protein Negative Urine Glucose (UA) [...] your Primary Care Provider. Call [facility] ([phone]) or report to the closest Emergency Room. Call 911 if necessary. 12/13/232307 <Electronically signed by Jey Quesada DO> Cosigner Signature (if applicable): CC: Dr. Aleksandar Jones MD ~ Signed [facility] Work Phone: 1(951) 454-117202-20-2024 Miscellaneous Notes* Telephone Encounter - Shanell Estes [...] Estes LPN. documented in this encounterMercy Health – The Jewish Hospital02-08-2024 Miscellaneous Notes* Telephone Encounter - Edel [...] has any questions. Thank you. Meredith Moore APRN.TOOL PROFILING MACHINE SET UP OPERATOR documented in this encounterMercy Health – The Jewish Hospital12-11-2023 History of Present illness Narrative* Fuentes Renee MD - 09/22/2023 3:56 PM EST Images from the original note were not included. Fuentes Renee MD Interventional Cardiology [address] [place] [address] Chief Complaint Patient presents with: Established Patient [...] HISTORY Diagnosis Date Bilateral pneumonia 07/23/2018 Admit [facility]: pneumococcal suspected, neg culture. 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 For 7 nights. 7 Suppository 0 Dlruh-9-ZCN-EPA-Fish Oil (FISH OIL) 300-1,000 mg cap Take [...] 1 capsule by mouth once daily. 30 [id number] guaiFENesin (MUCINEX) 600 mg 12 hr tablet [...] bedtime. 10mL 5 Lancing Device with Lancets (Jintronix PLUS LANC DEV) Check blood sugars twice [...] any errors. documented in this encounterMercy Health – The Jewish Hospital11-29-2023 Miscellaneous Notes* Telephone Encounter - Joselyn [...] a: 114, 3p: 153, 8 p: 245 1116: f: 140, 11 a: 128, 3 p: [...] 171, 3 p: 176, 8 p: 170 11-28: f: 151, 11:45 a: 179, 3:15 p: [...] 09/09/2023 2:35 PM EST TC to patients registered nurse hh case manager, Leola, to question frequency of [...] homemonitors these and to contact her at [phone] after 4 PM for additional information. CHRIS Antunez * Telephone Encounter - Aleksandar Jones MD - 09/09/2023 1:46 PM EST Can we verify with long term. I have her being testing two times a day * Telephone Encounter - Yany Richardson - 09/09/2023 1:32 PM EST Brenda is calling Aleksandar Jones MD today Dorie, Wafer Fabrication Operator from [facility] called due to she needs our office to call and confirm the diabetic information for the patient. The [facility] told her they are testing the patient 5 times per day. They will need new prescriptions for test stripsand lancets. Please call back. Patient has been identified by name and birthdate. Closing statement: Results or non-symptom based questions: Thank you for calling [facility], your call will be returned within the next business day. Yany Zuniga documented in this encounterMercy Health – The Jewish Hospital11-29-2023 Miscellaneous Notes* Telephone Encounter - Maye [...] Value 04/29/2023 114 03/12/2019 Test sent to [facility]. Non HDL Cholesterol (mg/dL) Date Value 08/21/2022 118 07/26/2020 132 Blood Pressure: BUN (mg/dL) Date Value 04/29/2023 14 07/19/2021 8 Sodium (mmol/L) Date Value 04/29/2023 135 07/19/2021 133 Last 1 Encounter BP Readings: Date: BP: 08/29/2023 118/72 Please advise. Thank you. Maye Ferrer LPN. documented in this encounterMercy Health – The Jewish Hospital11-20-2023 Miscellaneous Notes* Telephone Encounter - Jade [...] Rogers RN - 09/01/2023 11:06 AM EST [facility] called. Asking if they could replace the Monistat cream to Miconazole 200 mg suppository to meet the needs of the patient. It comes as a 3 day pack. Edilia Rogers RN * Telephone Encounter - Joselyn Haji RN - 09/01/2023 10:53 AM EST mold worker notified of information below. Joselyn Haji RN * Telephone Encounter - Alma Ac APRN.CNP - 09/01/2023 10:27 AM EST There is an interaction with the Diflucan and another medication she is on, that's why I didn't order it. Alma Ac APRN.CNP * Telephone Encounter - Joselyn Haji RN - 09/01/2023 9:28 AM EST Patients foam rubber curer called and notified of results and instructions. Leola states the long term where Brenda lives is not licensed to administer the medication and areonly able to give verbal prompts. Because patient is very cognitively limited is she able to get oral Diflucan instead of vaginal cream? Will need to call [facility] foam rubber curer back. Joselyn Haji RN * Telephone Encounter [...] Ac APRN.CNP documented in this encounterMercy Health – The Jewish Hospital11-17-2023 History of Present illness Narrative* Alma [...] external genitalia normal, normal Bartholin's glands, urethra, [place]'s glands, no vulvar lesions, no cervical lesions, [...] 1 %-0.05 % TOPICAL CREAM Alma Ac APRN.CNP Table Worker offered: Patient declines. Medical Decision Making: Problems: Low: Acute, uncomplicated illness or injury Data: Unique test(s) ordered: 2 Risk: Low: Low risk from testing/treatment Moderate: Drug management Medical Decision Making Level: 3 - Low documented in this encounterMercy Health – The [facility] Hospital11-16-2023 Miscellaneous Notes* Telephone Encounter - Alma Smart RN - 08/28/2023 8:35 AM EST Patient has been identified by name and date of : Yes, Provider [place] Date 08-28-23 Time 8:36 am Pharmacy phones [...] Smart RN. documented in this encounterMercy Health – The [facility] Hospital11-09-2023 Miscellaneous Notes* Telephone Encounter - Alma [...] option? If so, please send rx to [facility]. Thank you, Shanell Estes LPN * Telephone [...] Mark LPN documented in this encounterMercy Health – The Jewish Hospital11-07-2023 Miscellaneous Notes* Telephone Encounter - Cristal White RN - 08/19/2023 5:55 PM EST Fransisca Pandya Resident Staff at the [facility] called and is notified of providers results [...] EST Fransisca Pandya Resident Staff at the [facility] she reports Pt was in the hospital [...] and advise. documented in this encounterMercy [facility]11-04-2023 Discharge summary Author Hesham Noguera [facility] August 16, 2023 10:28am Note Date/Time August 16, 2023 1 0:14am [facility] Medical Records Department [address] [place] [address] Discharge Summary 08/16/23 1011 MR#: [id number] Acct: [id number] Name: BRENDA LE Rep #:[id number] : 1965 57 From: Hesham Noguera MD PCP: Dr. Aleksandar Jones MD Status:ADM I N Location: [place] [address] Providers Date of Admission: 08/14/23 Date of [...] (Auto) 81.8 H, Lymph % (Auto) 12.7 L,Price % (Auto) 4.6, Eos % (Auto) 0.0, [...] Self Care Charges/Coding Visit Charges Inpatient E&M: 60730 Disch Hosp >30min 08/16/23 1028 <Electronically signed by Hesham Noguera MD> Cosigner Signature (if applicable): CC: Dr. Hesham Noguera MD; Dr. Aleksandar Jones MD~ Signed [facility] Work Phone: 1(233) 593-235111-04-2023 Progress note Author Hesham Noguera [facility] August 16, 2023 10:11am Note Date/Time August 16, 2023 7 :08am [facility] Medical Records Department [address] [place] [address] Progress Note - Hospitalist 08/16/23 0708 MR#: [id number] Acct: [id number] Name: BRENDA LE Rep #:[id number] : 1965 57 From: Hesham Noguera MD PCP: Dr. Aleksandar Jones MD Status:ADM I N Location: [place] [address] Reason for Visit Reason for Visit: Diagnoses [...] (Auto) 86.8 H, Lymph % (Auto) 11.1 L,Price % (Auto) 1.6, Eos % (Auto) 0.0, [...] documentation, 40minutes Charges/Coding Visit Charges Inpatient E&M: 99409 Subs Hosp L2 08/16/23 1011 <Electronically signed by Hesham Noguera MD> Cosigner Signature (if applicable): CC: ~ Signed [facility] Work Phone: 1(763) 194-970511-03-2023 Progress note Author Hesham Noguera [facility] August 15, 2023 9:29am Note Date/Time August 15, 2023 7 :27am [facility] Medical Records Department [address] [facility] [place] [address] Progress Note - Hospitalist 08/15/23726 MR#: [id number] Acct: [id number] Name: BRENDA LE Rep #:[id number] : 1965 57 From: Hesham Noguera MD PCP: Dr. Aleksandar Jones MD Status:ADM I N Location: [place] [address] Reason for Visit Reason for Visit: Diagnoses [...] (Auto) 79.4 H, Lymph % (Auto) 12.3 L,Price % (Auto) 7.5, Eos % (Auto) 0.0, [...] documentation, 40minutes Charges/Coding Visit Charges Inpatient E&M: 73751 Subs Hosp L2 08/15/23 0929 <Electronically signed by Hesham Noguera MD> Cosigner Signature (if applicable): CC: ~ Signed [facility] Work Phone: 1(687) 164-908511-03-2023 Progress note Author Amy Moreno [facility] August 15, 2023 6:28am Note Date/Time August 15, 2023 6 :28am [facility] Medical Records Department [address] [place] [address] Progress Note - Hospitalist 08/15/2328 MR#: [id number] Acct: [id number] Name: BRENDA LE Rep #:[id number] : 1965 57 From: Amy Moreno MD PCP: Dr. Aleksandar Jones MD Status:ADM I N Location: [place] [address] Hospitalist Note Resp panel with + rhino. 08/15/23 06 <Electronically signed by Amy Moreno MD> Cosigner Signature (if applicable): CC: ~ Signed [facility] Work Phone: 1(935) 106-859411-03-2023 Discharge summary Author Jey Quesada [facility] August 14, 2023 10:27pm Note Date/Time August 14, 2023 6 :16pm [facility] Medical Records Department [address] [place] [address] Emergency Department Summary 08/14/23 MR#: [id number] Acct: [id number] Name: BRENDA LE Rep #:[id number] : 1965 57 From: Jey Quesada DO PCP: Dr. Aleksandar Jones MD Status:ADM I N Location: [place] [address] HPI History of Present Illness Chief Complaint: [...] of breath. Has a history of COPD. [facility] Medical History (Updated 08/14/23 @ 22:16 [...] Dr. Amy Moreno MD) housing: other details: retirement. Smoking Status: Former smoker how long ago [...] 79.4 H Lymph % (Auto) 12.3 L Price % (Auto) 7.5 Eos % (Auto) 0.0 [...] 19:05 EDT Reading Location ID and State: [facility] / [place] , Service support , Discharge Plan Triage Chief Complaint: Shortness of Breath ED Provider: Jey Quesada Dx/Rx/DC Orders Primary Care Provider: Aleksandar Jones What to do if you have Problems For any increased pain, shortness of breath, bleeding, nausea or vomiting, chestpain, or any unexpected problems, contact your Primary Care Provider. Call [facility] ([phone]) or report to the closest Emergency Room. Call 911 if necessary. 08/14/232226 <Electronically signed by Jey Quesada DO> Cosigner Signature (if applicable): CC: Dr. Aleksandar Jones MD ~ Signed [facility] Work Phone: 1(616) 932-839111-03-2023 History and physical note Author Amy Moreno [facility] August 14, 2023 10:20pm Note Date/Time August 14, 2023 1 0:20pm [facility] Medical Records Department [address] [place] [address] H&P Exam - Hospitalist 08/14/238 MR#: [id number] Acct: [id number] Name: BRENDA LE Rep #:[id number] : 1965 57 From: Amy Moreno MD [...] Tobacco use, Obesity who presents to the [facility] ED on 08/14/23with history of 3 [...] as patient complaining of significant nasal congestion. [facility] Medical History (Updated 08/14/23 @ [...] Dr. Amy Moreno MD) housing: other details: retirement. Smoking Status: Former smoker how long ago [...] (Auto) 79.4 H, Lymph % (Auto) 12.3 L,Price % (Auto) 7.5, Eos % (Auto) 0.0, [...] Tobacco use, Obesity who presents to the [facility] ED on 08/14/23with history of 3 [...] Full code. Charges/Coding Visit Charges Inpatient E&M: 93312 Init Hosp L3 08/14/232219 <Electronically signed by Amy Moreno MD> Cosigner Signature (if applicable): CC: Dr. Amy Moreno MD; Dr. Aleksandar Jones MD~ Signed [facility] Work Phone: 1(200) 577-695111-02-2023 Discharge summary Author Jey Quesada [facility] August 14, 2023 10:27pm Note Date/Time August 14, 2023 6 :16pm [facility] Medical Records Department [address] [place] [address] Emergency Department Summary 08/14/23 MR#: [id number] Acct: [id number] Name: BRENDA LE Rep #:[id number] : 1965 57 From: Jey Quesada DO PCP: Dr. Aleksandar Jones MD Status:ADM I N Location: [address] History of Present Illness Chief Complaint: [...] of breath. Has a history of COPD. [facility] Medical History (Updated 08/14/23 @ 22:16 [...] Dr. Amy Moreno MD) housing: other details: retirement. Smoking Status: Former smoker how long ago [...] 79.4 H Lymph % (Auto) 12.3 L Price % (Auto) 7.5 Eos % (Auto) 0.0 [...] your Primary Care Provider. Call [facility] ([phone]) or report to the closest Emergency Room. Call 911 if necessary. 08/14/232226 <Electronically signed by Jey Quesada DO> Cosigner Signature (if applicable): CC: Dr. Aleksandar Jones MD ~ Signed [facility] Work Phone: [phone]) 948-111710-31-2023 Miscellaneous Notes* Telephone Encounter - Anusha Hansen [...] you. Anusha Hansen RN. documented in this [facility]10-04-2023 Miscellaneous Notes* Telephone Encounter - Loree Chen RN - 07/16/2023 8:25 AM EDT Pharmacy electronically requests the following refill(s) Requested Prescriptions Pending Prescriptions Disp Refills metoprolol succinate ER (TOPROL XL) 25 mg 24 hr tablet [Pharmacy Med Name: Metoprolol Succinate ER 25MG TB24] 90 tablet 3 Sig: take 1 tablet by mouth every evening Loree Chen RN documented in this [facility]09-06-2023 Miscellaneous Notes* Telephone Encounter - Eunice Spivey RN - 06/18/2023 8:56 AM EDT Last Office Visit: 04/29/2023 Future Office Visit: 10/31/2022 Requested Prescriptions Pending Prescriptions Disp Refills omeprazole (PRILOSEC) 20 mg capsule 30 capsule 5 Sig: Take 1 capsule by mouth daily before breakfast. 1/2 hr before meal. Date of Last Labs: 04/29/2023 documented in this [facility]08-15-2023 Miscellaneous Notes* Telephone Encounter - Shanell Estes LPN - 05/27/2023 10:16 AM EDT [employer] phones requesting refills as follows: Requested Prescriptions Pending Prescriptions Disp Refills pramipexole (MIRAPEX) 0.5 mg tablet 30 tablet 5 Sig: Take 0.5 tablets by mouth daily at bedtime. DEBBY: 04/29/23 NOV: 10/31/23 Shanell Estes LPN documented in this [facility]08-14-2023 Miscellaneous Notes* Telephone Encounter - Nissa Ybarra OCCA - 05/26/2023 2:20 PM EDT TC to both patient and guardian who both verbalized understanding of providers message with no questions at this time. CHRIS Antunez * Telephone Encounter - Nissa Ybarra OCCA - 05/26/2023 2:18 PM EDT ----- Message from Radha Batista APRN.TOOL PROFILING MACHINE SET UP OPERATOR sent at 05/26/2023 2:00 PM EDT ----- Can please let patient/caregiver know that her stress testing was negative/normal. Radha Batista APRN.TOOL PROFILING MACHINE SET UP OPERATOR documented in this encounterMer[facility]-14-[facility] History of Present illness Narrative* Loree [...] Loree Chen RN Reversal agent used:None LOT [id number] EXP 06/13/26 IV SITE: IV palced by nuclear tecnologist POST EXAM PIV STATUS: Discontinued by Jigsaw Operator PATIENT DISCHARGED TO: Nuclear Medicine Department for post stress imaging A Diagnostic radioactive procedure has taken place, with no further precautions necessary other than routine body substance precautions. More information regarding radiation safety can be found usingthis link: [email or web address]%[email or web address]%20Medicine%[email or web address] SIGNATURE: Loree Chen RN PATIENT NAME:Brenda Le DATE: 05/26/23 TIME: 12:20 PM documented in this encounterMercy [facility]08-14-2023 History of Present illness Narrative* Sarina [...] Discontinued PROCEDURE TYPE: NM Stress: 11.8 mCi [id number] was administered IV for Rest Imaging at 07:20 by Sarina Lee. 31.3 mCi [id number] was administered IV for Stress Imaging at 08:31 by Sarina Lee. ADMINISTRATION TIME: PATIENT DISCHARGED TO: Ambulatory patient, left NE department area. A Diagnostic radioactive procedure has taken place, with no further precautions necessary other than routine body substance precautions. More information regarding radiation safety can be found usingthis link: [email or web address] 20Diagnostic%20Nuclear%20Medicine%20Procedures.pdf SIGNATURE: RT Lemuel(R) PATIENT NAME: Brenda Le DATE: May 26, 2023 TIME: 09:40 AM PAGER/CONTACT #: documented in this encounterMercy Health [facility]08-11-2023 Miscellaneous Notes* Telephone Encounter - Alma Smart RN - 05/23/2023 4:09 PM EDT [place] pharmacy asking pcp to send order for a generic lancet for patient. Reports patient unable touse the one touch lancets with the system she is using now. Pended. Last appt in pcp office: 12-20-22 Next appt: 10-31-23 documented in this encounterMercy Health [facility]07-27-2023 Miscellaneous Notes* Telephone Encounter - Nisha Oneill Ma - 05/08/2023 9:48 AM EDT Patient was made aware of the results. Patient verbalizes understanding. 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 Radha Batista APRN.TOOL PROFILING MACHINE SET UP OPERATOR documented in this encounterMercy Health [facility]07-18-2023 Instructions* Patient Instructions* Radha Batista APRN.CNP - 04/29/2023 3:22 PM EDT Get the labwork. Get the stool sample for hidden blood. Schedule the stress testing. We'll let you know when I receive the lab results back. documented in this encounterMercy Health [facility]07-18-2023 History of Present illness Narrative* Radha [...] has been having some problems with fatigue. pressed or blown glass worker disclosed that patient is afraid that [...] HISTORY Diagnosis Date Bilateral pneumonia 07/23/2018 Admit [facility]: pneumococcal suspected, neg culture. + rhinovirus [...] daily at bedtime. Lancing Device with Lancets ([employer] DELICA PLUS LANC DEV) Check blood sugars [...] MG/5 ML INTRAVENOUS SYRINGE - INSERT IV ([place]) - IV DISCONTINUE Will also forward note to pt's choke reamer for review. 2. Weight loss - ICD9: [...] which included preparing to see the patient, [id number] patient care, completing clinical documentation, obtaining and/or reviewing separately obtained history, performing a medically appropriate examination, counseling and educating the pat ient/family/caregiver, and ordering medications, tests, or procedures. documented in this encounterMercy Health [facility]05-17-2023 Miscellaneous Notes* Telephone Encounter - Shanell Estes LPN - 02/26/2023 9:06 AM EDT [employer] phones requesting refills as follows: Requested Prescriptions Pending Prescriptions Disp Refills potassium chloride ER (KLOR-CON) 20 mEq tablet 30 tablet 5 Sig: Take 1 tablet by mouth once daily. DEBBY: 12/20/22 (VV) NOV: 03/12/23 Last Refill: 09/11/22 #30 5 refills Shanell Estes LPN documented in this encounterMercy Health [facility]05-05-2023 Miscellaneous Notes* Telephone Encounter - Maye [...] Ferrer LPN documented in this encounterMercy Health [facility]04-20-2023 Miscellaneous Notes* Telephone Encounter - Anusha [...] Hansen RN documented in this encounterMercy Health [facility]02-27-2023 Miscellaneous Notes* Telephone Encounter - Alma Smart RN - 12/09/2022 10:11 AM EST Patient has been identified by name and date of : Yes, Provider Dr. Robert Lockwood 12-09-22 Time 10:12 am Pharmacy phones for [...] Smart RN documented in this encounterMercy Health [facility]12-27-2022 Miscellaneous Notes* Telephone Encounter - Eunice Spivey RN - 10/08/2022 8:29 AM EST Last Office Visit: 08/28/2022 Future Office Visit: 03/12/2023 Requested Prescriptions Pending Prescriptions Disp Refills insulin needles, DISPOSABLE, (PEN NEEDLE) 31 gauge x 5/16" 100 Each 11 Sig: Use one needle per dose. Once per day. Date of Last Labs: 08/21/2022 documented in this encounterMercy Health – [facility] Hospital12-23-2022 Miscellaneous Notes* Telephone Encounter - Shanell [...] Shanell Zuniga documented in this encounterMercy Health – [facility]11-30-2022 Miscellaneous Notes* Telephone Encounter - Shanell Estes LPN - 09/11/2022 2:26 PM EST [facility] pharmacy calling for refills DEBBY: 08/28/22 NOV: 03/12/23 Last Refill: Carter 10/09/21 #30 11 refills Vit D3 10/09/21 #30 11 refills Potassium chl: 03/27/22 #30 5 refills Shanell Estes LPN documented in this encounterMercy Health [facility]11-18-2022 Miscellaneous Notes* Telephone Encounter - Maye [...] Ferrer LPN documented in this encounterMercy Health – [facility]11-16-2022 Instructions* Patient Instructions* Radha Batista APRN.TOOL PROFILING MACHINE SET UP OPERATOR - 08/28/2022 2:39 PM EST Continue same medications. Try holding milk products for a week and see if that helps. Try the eye gel at night. Start the metronidazole cream. You can try the tylenol/ibuprofen as needed for back pain. Also can try some heat and massage. Labs and recheck in 6 months. documented in this encounterMercy Health [facility]11-16-2022 History of Present illness Narrative* Radha [...] HISTORY Diagnosis Date Bilateral pneumonia 07/23/2018 Admit [facility]: pneumococcal suspected, neg culture. 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 Keila Zuniga documented in this encounterMercy Health – [facility]11-01-2022 Miscellaneous Notes* Telephone Encounter - Zaira Humphreys LPN - 08/13/2022 10:00 AM EDT Patient's request for medication is as follows: Requested Prescriptions Pending Prescriptions Disp Refills metoprolol succinate ER (TOPROL XL) 25 mg 24 hr tablet [Pharmacy Med Name: Metoprolol Succinate ER 25MG TB24] 90 tablet 3 Sig: TAKE 1 TABLET BY MOUTH EVERY EVENING Last seen 06/03/2022 in [place]. Follow up scheduled for 06/02/2023. Prescription(s) as above. Please process accordingly. Zaira Humphreys LPN documented in this encounterMercy Health – [facility] Hospital10-27-2022 Instructions* Patient Instructions* Zaira Mancilla APRN.TOOL PROFILING MACHINE SET UP OPERATOR - 08/08/2022 1:55 PM EDT [facility] [place] [id number] [place] [address] Emergency Department Diagnosis: Assessment CELLULITIS: Your exam [...] you are not current with your inmunizations.CONJUNCTIVITIS ([facility]) BASIC INFORMATION DESCRIPTION: An inflammation of [...] virus or allergy. At this point, an assembler tractor may need to culture the cause or [...] is affected. documented in this encounterMercy Health [facility] Hospital10-27-2022 History of Present illness Narrative* Zaira [...] limited related to cognitive. Information supplemented by respiratory director of long term. The history is provided by the patient and a caregiver. The history is limited by a developmental delay. No supervisor filter assembly was used. Eye Problem This is a [...] HISTORY Diagnosis Date Bilateral pneumonia 07/23/2018 Admit [facility]: pneumococcal suspected, neg culture. + rhinovirus [...] MOVEMENT AFTER 3 Lancing Device with Lancets ([employer] DELICA PLUS LANC DEV) Check blood sugars [...] once daily. Per Dr. Ramirez Comp Stocking,Knee,Regular,Med [facility] Patient to be measured for correct size. [...] days Zaira Mancilla APRN.CNP documented in this encounterMercy Health [facility]09-23-2022 Instructions* Patient Instructions* Zaira Mancilla APRN.CNP - 07/05/2022 1:15 PM EDT Keep the area free of further injury Topical antibiotic ointment Follow up with podiatry to have toenails clipped. documented in this encounterMercy Health – [facility] Hospital09-23-2022 History of Present illness Narrative* Zaira Mancilla APRN.CNP - 07/05/2022 1:06 PM EDT Images from the original note were not included. This note was created using [employer]. Subjective Brenda Le is a 56 year [...] tingling Sees Dr. Salmon for podiatry at [place], long term tried to call today, but they are closed. The history is provided by the patient. No supervisor filter assembly was used. Pain (foot) Pain location: right [...] HISTORY Diagnosis Date Bilateral pneumonia 07/23/2018 Admit [facility]: pneumococcal suspected, neg culture. 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 Lancing Device with Lancets (ONETOUCH DELICA PLUS [...] Mancilla APRN.PAVITHRA documented in this encounterMercy Health [facility]09-08-2022 Miscellaneous Notes* Telephone Encounter - Cristal [...] you. Cristal White RN documented in this encounterMercy Health [facility]07-27-2022 Miscellaneous Notes* Telephone Encounter - Alma Smart RN - 05/08/2022 9:45 AM EDT [facility] reports the hospital in [place] only prescribed a month supply of the pended medications. Reports when the hospital sent Rx's for the month supply, it cancelled out pcp's Rx's. Will need new Rx's. Note: miralax was changed to packets and instructions state daily. Ferrous gluconate was changed toFerrous sulfate. [facility] asking to please send omar, so patient will have to take tomorrow. documented in this encounterMercy Health [facility]07-26-2022 Miscellaneous Notes* Telephone Encounter - Frank Joya LPN - 05/07/2022 2:30 PM EDT [facility] pharmacy notified. Frank Joya LPN * Telephone Encounter - Aleksandar Jones MD - 05/07/2022 1:43 PM EDT Continue meds. * Telephone Encounter - Chiara Suárez LPN - 05/07/2022 1:33 PM EDT Patient was released [facility]/16/2022 from [facility], Dr. Kessler called in RX Metformin 500mg, 2tablets BID & Ferrous Sulfate 325mg, 1 tablet once daily. [facility]/pharmacy is asking if Dr. Jones wants Patient to continue taking Metformin & Ferrous Sulfate. Please advise. Chiara Suárez LPN documented in this encounterMercy Health – [facility]07-21-2022 Miscellaneous Notes* Telephone Encounter - Adrianne Saldivar LPN - 05/02/2022 9:46 AM EDT Called pharmacy and had tech check profile. They do have refill on metformin and iron. Confirmed with her these were not new orders. * Telephone Encounter - Kelsy Herrera Pss - 05/02/2022 9:28 AM EDT [facility] pharmacy calling stating patient was in [facility] and has been starteed o nthe follow medications. Please call in the following prescriptions: Atorvastatin 10 mg one tablet at bedtime Iron 325 mg one tablet twice daily Metformin 500 mg two tablets twice daily Patient uses pharmacy on file. documented in this encounterMercy Health [facility]06-15-2022 Miscellaneous Notes* Telephone Encounter - Татьяна [...] Chica Todd documented in this encounterMercy Health – [facility] Hospital06-15-2022 Instructions* Patient Instructions* Radha Batista APRN.CNP - 03/27/2022 2:34 PM EDT 1. Apply the triamcinolone ointment twice daily to the irritated skin from the cpap straps. Leave open to air during the day. In the evening, use guaze between face and cpap straps until healed. 2. Notify provider if no better or any worsening. documented in this encounterMercy Health – [facility]06-15-2022 History of Present illness Narrative* Radha [...] HISTORY Diagnosis Date Bilateral pneumonia 07/23/2018 Admit [facility]: pneumococcal suspected, neg culture. + rhinovirus [...] MOVEMENT AFTER 3 Lancing Device with Lancets ([employer] ([employer])TOUCH DELICA PLUS LANC DEV) Check blood sugars [...] instructed once daily. Per Dr. Ramirez Comp Stocking,Knee,Regular,[facility] Patient to be measured for correct size. [...] Batista APRN.PAVITHRA documented in this encounterMercy Health – [facility]04-20-2022 Instructions* Patient Instructions* Radha Batista APRN.CNP - 01/30/2022 1:40 PM EDT 1. Moist heat/ice to the affected area, as discussed. 2. Ibuprofen 200-400 mg every 8 hours as needed for pain. 3. Stretching and massage, as discussed. 4. Let us know if no better or any worsening. documented in this encounterMercy Health – [facility]04-20-2022 History of Present illness Narrative* Radha [...] HISTORY Diagnosis Date Bilateral pneumonia 07/23/2018 Admit [facility]: pneumococcal suspected, neg culture. 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 Lancing Device with Lancets ([employer] DELICA PLUS LANC DEV) Check blood sugars [...] once daily. Per Dr. James Izquierdo Stocking,Knee,Regular,[facility] Patient to be measured for [...] plan. This note was partially generated using [employer] voice recognition system. Note was reviewed for accuracy. There may be minor misspellings or grammar miscues with [employer] [employer] voice recognition. documented in this encounterMer[facility]19-[facility]22 Miscellaneous Notes* Telephone Encounter - Frank Joya LPN - 01/29/2022 1:00 PM EDT Yolie marshied, appt scheduled. Frank Joya LPN * Telephone Encounter - Radha Batista APRN.CNP - 01/29/2022 12:29 PM EDT Needs an appointment to have back pain evaluated. Radha Batista APRN.CNP * Telephone Encounter - Brandy Mark LPN - 01/29/2022 10:11 AM EDT Yolie, block and case maker/social media content specialist [facility] calling and states that pt is having muscle/sciatic pain. Pt lives in a long term. This pain is upsetting, agitating an working on pt's mental health. Pt was on Tylenol but was discontinued due to fatty liver. Yolie is requesting something pt can take for the above pain, [id number] be sent to [facility] if possible. Even though OTC they would still need to have a prescription sent. Yolie will be calling back later to schedule an apt for pt. Please advise Yolie. Brandy Mark LPN documented in this encounterMercy [facility]04-04-2022 History of Present illness Narrative* Aleksandar Jones MD - 01/14/2022 3:21 PM EDT Patient presents with: 6 Month Exam HPI: Patient presents today for office visit for follow up. Accompanies by her registered nurse hh case manager. Seeing psych. Recently saw cardiology [...] take as directed. Lancing Device with Lancets ([employer] DELICA PLUS LANC DEV) Check blood sugars [...] 09/19 on [address] James [facility] (PRISTIQ) 50 mg 24 hr tablet [...] HISTORY Diagnosis Date Bilateral pneumonia 07/23/2018 Admit [facility]: pneumococcal suspected, neg culture. + rhinovirus Constipation COPD (chronic obstructive pulmonary disease) ([facility]) Diabetes 1.5, managed as type 2 ([facility]) found at [facility], pt was on metformin for a [...] Comment: [email or web address]- Teen yrs, but not now Reviewed current [...] - sees podiatry regularly, Dr. Salmon in [place]. Saw in August LUNG CANCER SCREENING-will check [...] ICD9: 295.42, ICD10: F20.81 - per [facility] 9. Vitamin D deficiency - ICD9: 268.9, ICD10: E55.9 - will follow. 10. Advance care planning - ICD9: V65.49, ICD10: Z71.89 - done. Aleksandar Jones RTO in six months and prn. documented in this encounterMercy Health [facility]04-04-2022 Miscellaneous Notes* Telephone Encounter - Maye [...] Ferrer LPN documented in this encounterMercy Health [facility]04-01-2022 Miscellaneous Notes* Telephone Encounter - Alma [...] Smart RN documented in this encounterMercy Health [facility]10-07-2021 History of Present illness Narrative* Neelima [...] 3:05 PM documented in this encounterMercy Health – [facility]08-09-2021 History of Past illness Narrative* Problem [...] check Routine gynecological examination 08/29/2009 11/26/2011 Overview: [facility], [facility] [place] w/o Complication Type II 11/08/200802/10 Other abnormal glucose 8 Overview: found at [facility], pt was on metformin for a while but taken off - pt never told if she had DM or not A1c 6.5% as of documented as of this encounter (statuses as of 01/14/2022) [facility]08[facility]09[facility] History of Past illness Narrative* Problem [...] check Routine gynecological examination 08/29/2009 11/26/2011 Overview: [facility], [facility] [place] w/o Complication Type II 11/08/200802/10 Other abnormal glucose 8 Overview: found at [facility], pt was on metformin for a while but taken off - pt never told if she had DM or not A1c 6.5% as of documented as of this encounter (statuses as of 01/29/2022) [facility]08[facility] History of Past illness Narrative* Problem [...] Routine gynecological examination 08/29/2009 11/26/2011 Overview: [facility], [facility] [place] DM w/o Complication Type II 11/08/200802/10 Other abnormal glucose 8 Overview: [facility], pt was on metformin for a while but taken off - pt never told if she had DM or not A1c 6.5% as of documented as of this encounter (statuses as of 01/30/2022) [facility] History of Past illness Narrative* Problem [...] check Routine gynecological examination 08/29/2009 11/26/2011 Overview: [facility], [facility] [place] w/o Complication Type II 11/08/200802/10 Other abnormal glucose 8 Overview: found at [facility], pt was on metformin for a while but taken off - pt never told if she had DM or not A1c 6.5% as of documented as of this encounter (statuses as of 03/27/2022) [facility] History of Past illness Narrative* Problem [...] check Routine gynecological examination 08/29/2009 11/26/2011 Overview: [facility], [facility] [place] w/o Complication Type II 11/08/200802/10 Other abnormal glucose 8 Overview: found at [facility], pt was on metformin for a while but taken off - pt never told if she had DM or not A1c 6.5% as of documented as of this encounter (statuses as of 05/02/2022) [facility] History of Past illness Narrative* Problem [...] check Routine gynecological examination 08/29/2009 11/26/2011 Overview: [facility], [facility] [place] w/o Complication Type II 11/08/200802/10 Other abnormal glucose 8 Overview: found at [facility], pt was on metformin for a while but taken off - pt never told if she had DM or not A1c 6.5% as of documented as of this encounter (statuses as of 05/07/2022) [facility] History of Past illness Narrative* Problem [...] check Routine gynecological examination 08/29/2009 11/26/2011 Overview: [facility], [facility] [place] DM w/o Complication Type II 11/08/200802/10 Other abnormal glucose 8 Overview: found at [facility], pt was on metformin for a while but taken off - pt never told if she had DM or not A1c 6.5% as of documented as of this encounter (statuses as of 05/08/2022) [facility] History of Past illness Narrative* Problem [...] check Routine gynecological examination 08/29/2009 11/26/2011 Overview: [facility], [facility] [place] w/o Complication Type II 11/08/200802/10 Other abnormal glucose 8 Overview: [facility], pt was on metformin for a while but taken off - pt never told if she had DM or not A1c 6.5% as of documented as of this encounter (statuses as of 06/20/2022) [facility] of Past illness Narrative* Problem [...] Other abnormal glucose 8 Overview: found at [facility], pt was on metformin for a while but taken off - pt never told if she had DM or not A1c 6.5% as of documented as of this encounter (statuses as of 07/05/2022) [facility] of Past illness Narrative* Problem [...] check Routine gynecological examination 08/29/2009 11/26/2011 Overview: [facility], [facility] [place] DM w/o Complication Type II 11/08/200802/10 Other abnormal glucose 8 Overview: found at [facility], pt was on metformin for a while but taken off - pt never told if she had DM or not A1c 6.5% as of documented as of this encounter (statuses as of 08/08/2022) [facility] History of Past illness Narrative* Problem [...] check Routine gynecological examination 08/29/2009 11/26/2011 Overview: [facility], [facility] [place] DM w/o Complication Type II 11/08/200802/10 Other abnormal glucose 8 Overview: found at [facility], pt was on metformin for a while but taken off - pt never told if she had DM or not A1c 6.5% as of documented as of this encounter (statuses as of 08/12/2022) [facility] of Past illness Narrative* Problem [...] examination 08/29/2009 11/26/2011 Overview: [facility], [facility] [place] w/o Complication Type II 11/08/200802/10 Other abnormal glucose 8 Overview: found at [facility], pt was on metformin for a while but taken off - pt never told if she had DM or not A1c 6.5% as of documented as of this encounter (statuses as of 08/15/2022) [facility] of Past illness Narrative* Problem [...] check Routine gynecological examination 08/29/2009 11/26/2011 Overview: [facility], [facility] [place] w/o Complication Type II 11/08/200802/10 Other abnormal glucose 8 Overview: found at [facility], pt was on metformin for a while but taken off - pt never told if she had DM or not A1c 6.5% as of documented as of this encounter (statuses as of 08/15/2022) [facility] of Past illness Narrative* Problem [...] check Routine gynecological examination 08/29/2009 11/26/2011 Overview: [facility], [facility] [place] w/o Complication Type II 11/08/200802/10 Other abnormal glucose 8 Overview: found at [facility], pt was on metformin for a while but taken off - pt never told if she had DM or not A1c 6.5% as of documented as of this encounter (statuses as of 08/19/2022) [facility] History of Past illness Narrative* Problem [...] check Routine gynecological examination 08/29/2009 11/26/2011 Overview: [facility], [facility] [place] w/o Complication Type II 11/08/200802/10 Other abnormal glucose 8 Overview: found at [facility], pt was on metformin for a while but taken off - pt never told if she had DM or not A1c 6.5% as of documented as of this encounter (statuses as of 08/29/2022) [facility] of Past illness Narrative* Problem [...] check Routine gynecological examination 08/29/2009 11/26/2011 Overview: [facility], [facility] [place] w/o Complication Type II 11/08/200802/10 Other abnormal glucose 8 Overview: found at [facility], pt was on metformin for a while but taken off - pt never told if she had DM or not A1c 6.5% as of documented as of this encounter (statuses as of 08/30/2022) [facility] of Past illness Narrative* Problem [...] check Routine gynecological examination 08/29/2009 11/26/2011 Overview: [facility], [facility] [place] w/o Complication Type II 11/08/200802/10 Other abnormal glucose 8 Overview: found at [facility], pt was on metformin for a while but taken off - pt never told if she had DM or not A1c 6.5% as of documented as of this encounter (statuses as of 09/11/2022) [facility] of Past illness Narrative* Problem [...] check Routine gynecological examination 08/29/2009 11/26/2011 Overview: [facility], [facility] [place] DM w/o Complication Type II 11/08/200802/10 Other abnormal glucose 8 Overview: found at [facility], pt was on metformin for a while but taken off - pt never told if she had DM or not A1c 6.5% as of documented as of this encounter (statuses as of 10/06/2022) [facility] of Past illness Narrative* Problem [...] check Routine gynecological examination 08/29/2009 11/26/2011 Overview: [facility], [facility] [place] w/o Complication Type II 11/08/200802/10 Other abnormal glucose 8 Overview: found at [facility], pt was on metformin for a while but taken off - pt never told if she had DM or not A1c 6.5% as of documented as of this encounter (statuses as of 10/13/2022) [facility] of Past illness Narrative* Problem [...] check Routine gynecological examination 08/29/2009 11/26/2011 Overview: [facility], [facility] [place] w/o Complication Type II 11/08/200802/10 Other abnormal glucose 8 Overview: found at [facility], pt was on metformin for a while but taken off - pt never told if she had DM or not A1c 6.5% as of documented as of this encounter (statuses as of 12/09/2022) [facility] of Past illness Narrative* Problem [...] check Routine gynecological examination 08/29/2009 11/26/2011 Overview: [facility], [facility] [place] w/o Complication Type II 11/08/200802/10 Other abnormal glucose 8 Overview: found at [facility], pt was on metformin for a while but taken off - pt never told if she had DM or not A1c 6.5% as of documented as of this encounter (statuses as of 01/30/2023) [facility] of Past illness Narrative* Problem [...] check Routine gynecological examination 08/29/2009 11/26/2011 Overview: [facility], [facility] [place] w/o Complication Type II 11/08/200802/10 Other abnormal glucose 8 Overview: found at [facility], pt was on metformin for a while but taken off - pt never told if she had DM or not A1c 6.5% as of documented as of this encounter (statuses as of 02/14/2023) [facility] of Past illness Narrative* Problem [...] Routine gynecological examination 08/29/2009 11/26/2011 Overview: [facility], [facility] [place] DM w/o Complication Type II 11/08/200802/10 Other abnormal glucose 8 Overview: found at [facility], pt was on metformin for a while but taken off - pt never told if she had DM or not A1c 6.5% as of documented as of this encounter (statuses as of 02/26/2023) [facility] of Past illness Narrative* Problem [...] check Routine gynecological examination 08/29/2009 11/26/2011 Overview: [facility], [facility] [place] DM w/o Complication Type II 11/08/2008 02/22/2014 Other abnormal glucose 04/29 Overview: found at [facility], pt was on metformin for a while but taken off - pt never told if she had DM or not A1c 6.5% as of documented as of this encounter (statuses as of 04/30/2023) [facility] of Past illness Narrative* Problem [...] check Routine gynecological examination 08/29/2009 11/26/2011 Overview: [facility], [facility] [place] DM w/o Complication Type II 11/08/2008 02/22/2014 Other abnormal glucose 04/29 Overview: found at [facility], pt was on metformin for a while but taken off - pt never told if she had DM or not A1c 6.5% as of documented as of this encounter (statuses as of 05/08/2023) [facility] of Past illness Narrative* Problem [...] Routine gynecological examination 08/29/2009 11/26/2011 Overview: [facility], [facility] [place] w/o Complication Type II 11/08/2008 02/22/2014 Other abnormal glucose 04/29 Overview: found at [facility], pt was on metformin for a while but taken off - pt never told if she had DM or not A1c 6.5% as of documented as of this encounter (statuses as of 05/24/2023) [facility] of Past illness Narrative* Problem [...] check Routine gynecological examination 08/29/2009 11/26/2011 Overview: [facility], [facility] [place] w/o Complication Type II 11/08/2008 02/22/2014 Other abnormal glucose 04/29 Overview: found at [facility], pt was on metformin for a while but taken off - pt never told if she had DM or not A1c 6.5% as of documented as of this encounter (statuses as of 05/26/2023) [facility] of Past illness Narrative* Problem [...] check Routine gynecological examination 08/29/2009 11/26/2011 Overview: [facility], [facility] [place] w/o Complication Type II 11/08/2008 02/22/2014 Other abnormal glucose 04/29 Overview: found at [facility], pt was on metformin for a while but taken off - pt never told if she had DM or not A1c 6.5% as of documented as of this encounter (statuses as of 05/27/2023) [facility] of Past illness Narrative* Problem [...] gynecological examination 08/29/2009 11/26/2011 Overview: [facility], [facility] [place] w/o Complication Type II 11/08/2008 02/22/2014 Other abnormal glucose 04/29 Overview: found at [facility], pt was on metformin for a while but taken off - pt never told if she had DM or not A1c 6.5% as of documented as of this encounter (statuses as of 05/28/2023) [facility] illness Narrative* Problem [...] check Routine gynecological examination 08/29/2009 11/26/2011 Overview: [facility], [facility] [place] w/o Complication Type II 11/08/2008 02/22/2014 Other abnormal glucose 04/29 Overview: found at [facility], pt was on metformin for a while but taken off - pt never told if she had DM or not A1c 6.5% as of documented as of this encounter (statuses as of 06/18/2023) [facility] of Past illness Narrative* Problem [...] check Routine gynecological examination 08/29/2009 11/26/2011 Overview: [facility], [place] w/o Complication Type II 11/08/2008 02/22/2014 Other abnormal glucose 04/29 Overview: found at [facility], pt was on metformin for a while but taken off - pt never told if she had DM or not A1c 6.5% as of documented as of this encounter (statuses as of 07/17/2023) [facility] of Past illness Narrative* Problem [...] check Routine gynecological examination 08/29/2009 11/26/2011 Overview: [facility], [facility] [place] w/o Complication Type II 11/08/2008 02/22/2014 Other abnormal glucose 04/29 Overview: found at [facility], pt was on metformin for a while but taken off - pt never told if she had DM or not A1c 6.5% as of documented as of this encounter (statuses as of 07/21/2023) [facility] of [facility] illness Narrative* Problem [...] check Routine gynecological examination 08/29/2009 11/26/2011 Overview: [facility], [facility] [place] w/o Complication Type II 11/08/2008 02/22/2014 Other abnormal glucose 04/29 Overview: found at [facility], pt was on metformin for a while but taken off - pt never told if she had DM or not A1c 6.5% as of documented as of this encounter (statuses as of 08/12/2023) [facility] illness Narrative* Problem [...] check Routine gynecological examination 08/29/2009 11/26/2011 Overview: [facility], [facility] [place] w/o Complication Type II 11/08/2008 02/22/2014 Other abnormal glucose 04/29 Overview: found at [facility], pt was on metformin for a while but taken off - pt never told if she had DM or not A1c 6.5% as of documented as of this encounter (statuses as of 08/16/2023) [facility] of Past illness Narrative* Problem [...] check Routine gynecological examination 08/29/2009 11/26/2011 Overview: [facility], [facility] [place] w/o Complication Type II 11/08/2008 02/22/2014 Other abnormal glucose 04/29 Overview: found at [facility], pt was on metformin for a while but taken off - pt never told if she had DM or not A1c 6.5% as of documented as of this encounter (statuses as of 08/20/2023) [facility] of [facility] illness Narrative* Problem [...] check Routine gynecological examination 08/29/2009 11/26/2011 Overview: [facility], [facility] [place] w/o Complication Type II 11/08/2008 02/22/2014 Other abnormal glucose 04/29 Overview: found at [facility], pt was on metformin for a while but taken off - pt never told if she had DM or not A1c 6.5% as of documented as of this encounter (statuses as of 08/21/2023) [facility] Narrative* Problem [...] check Routine gynecological examination 08/29/2009 11/26/2011 Overview: [facility], [facility] [place] DM w/o Complication Type II 11/08/2008 02/22/2014 Other abnormal glucose 04/29 Overview: found at [facility], pt was on metformin for a while but taken off - pt never told if she had DM or not A1c 6.5% as of documented as of this encounter (statuses as of 08/28/2023) [facility] Narrative* Problem [...] check Routine gynecological examination 08/29/2009 11/26/2011 Overview: [facility], [facility] [place] w/o Complication Type II 11/08/2008 02/22/2014 Other abnormal glucose 04/29 Overview: found at [facility], pt was on metformin for a while but taken off - pt never told if she had DM or not A1c 6.5% as of documented as of this encounter (statuses as of 08/29/2023) [facility] Narrative* Problem [...] check Routine gynecological examination 08/29/2009 11/26/2011 Overview: [facility], [facility] [place] w/o Complication Type II 11/08/2008 02/22/2014 Other abnormal glucose 04/29 Overview: found at [facility], pt was on metformin for a while but taken off - pt never told if she had DM or not A1c 6.5% as of documented as of this encounter (statuses as of 09/01/2023) [facility] of Past illness Narrative* Problem [...] gynecological examination 08/29/2009 11/26/2011 Overview: [facility], [facility] [place] DM w/o Complication Type II 11/08/2008 02/22/2014 Other abnormal glucose 04/29 Overview: [facility], pt was on metformin for a while but taken off - pt never told if she had DM or not A1c 6.5% as of documented as of this encounter (statuses as of 09/10/2023) [facility] of Past illness Narrative* Problem [...] check Routine gynecological examination 08/29/2009 11/26/2011 Overview: [facility], [facility] [place] w/o Complication Type II 11/08/2008 02/22/2014 Other abnormal glucose 04/29 Overview: found at [facility], pt was on metformin for a while but taken off - pt never told if she had DM or not A1c 6.5% as of documented as of this encounter (statuses as of 09/10/2023) [facility] of Past illness Narrative* Problem [...] check Routine gynecological examination 08/29/2009 11/26/2011 Overview: [facility], [facility] [place] w/o Complication Type II 11/08/2008 02/22/2014 Other abnormal glucose 04/29 Overview: [facility] at [facility], pt was on metformin for a while but taken off - pt never told if she had DM or not A1c 6.5% as of documented as of this encounter (statuses as of 09/23/2023) [facility] of Past illness Narrative* Problem [...] Routine gynecological examination 08/29/2009 11/26/2011 Overview: [facility], [facility] [place] w/o Complication Type II 11/08/2008 02/22/2014 Other abnormal glucose 04/29 Overview: found at [facility], pt was on metformin for a while but taken off - pt never told if she had DM or not A1c 6.5% as of documented as of this encounter (statuses as of 11/20/2023) [facility] History of Past illness Narrative* Problem [...] check Routine gynecological examination 08/29/2009 11/26/2011 Overview: [facility], [facility] Silver DM w/o Complication Type II 11/08/2008 02/22/2014 Other abnormal glucose 04/29 Overview: found at [facility], pt was on metformin for a while but taken off - pt never told if she had DM or not A1c 6.5% as of documented as of this encounter (statuses as of 12/02/2023) [facility]08-09-2021 History of Past illness Narrative* Problem [...] check Routine gynecological examination 08/29/2009 11/26/2011 Overview: [facility], [facility] Silver DM w/o Complication Type II 11/08/2008 02/22/2014 Other abnormal glucose 04/29 Overview: found at [facility], pt was on metformin for a while but taken off - pt never told if she had DM or not A1c 6.5% as of documented as of this encounter (statuses as of 01/14/2024) [facility]08-09-2021 History of Past illness Narrative* Problem [...] Routine gynecological examination 08/29/2009 11/26/2011 Overview: [facility], [facility] Silver DM w/o Complication Type II 11/08/2008 02/22/2014 Other abnormal glucose 04/29 Overview: found at [facility], pt was on metformin for a while but taken off - pt never told if she had DM or not A1c 6.5% as of documented as of this encounter (statuses as of 01/22/2024) [facility]08-09-2021 History of Past illness Narrative* Problem [...] Other abnormal glucose 04/29 Overview: found at [facility], pt was on metformin for a while but taken off - pt never told if she had DM or not A1c 6.5% as of documented as of this encounter (statuses as of 01/30/2024) [facility]01-06-2021 History of Present illness Narrative* Neelima [...] 9:54 AM [facility] History of Past illness Narrative* Problem Noted Date Resolved Date Pneumonia of both upper lobes due to infectious organism 08/06/2018 08/06/2018 Type 2 diabetes mellitus with renal manifestatio ns 10/29/2013 11/07/2017 Tobacco abuse 09/07/2012 11/07/2016 Routine general medical exam ination at a health care facility 08/29/2009 11/26/2011 Overview: 08/29/2009, from [facility] 05/03/2011, yearly check Routine gynecological examination 08/29/2009 11/26/2011 Overview: [facility], [facility] DM w/o Complication Type II 11/08/200802/10 Other abnormal glucose 8 Overview: found at [facility], pt was on metformin for a while but taken off - pt never told if she had DM or not A1c 6.5% as of documented as of this encounter (statuses as of 01/11/2022) [facility]10-25-2018 History of Past illness Narrative* Problem Noted Date Resolved Date Pneumonia of both upper lobes due to infectious organism 08/06/2018 08/06/2018 Type 2 diabetes mellitus with renal manifestatio ns 10/29/2013 11/07/2017 Tobacco abuse 09/07/2012 11/07/2016 Routine general medical exam ination at a health care facility 08/29/2009 11/26/2011 Overview: 08/29/2009, from [facility] 05/03/2011, yearly check Routine gynecological examination 08/29/2009 11/26/2011 Overview: [facility], [facility] DM w/o Complication Type II 11/08/200802/10 Other abnormal glucose 8 Overview: found at [facility], pt was on metformin for a while but taken off - pt never told if she had DM or not A1c 6.5% as of documented as of this encounter (statuses as of 01/14/2022) [facility] Author Rolf Agudelo [facility] Note Date/Time June 23, 2025 12:36pm [facility] Medical Records Department [address] [place] [address] Anesthesia Postop Eval I 06/23/25 1235 MR#: [id number] Acct: [id number] Name: BRENDA LE Rep #:[id number] : 1965 59 From: Rolf Agudelo CRNA PCP: Dr. Aleksandar Jones MD Status:REG S DC Y Race: C Location: [place] [address] Anesthesia: Postop Eval I Current Vital Signs [...] 06/23/25 1236 <Electronically signed by Rolf cisse CRNA> Date _ Rolf Agudelo CRNA Cosigner Signature: Date CC: ~ Signed [facility] Work Phone: Discharge summary Author Babak [facility] Note Date/Time December 21, 2024 12: 14pm [facility] Medical Records Department [address] [place] [id number] Emergency Department Summary 12/21/24 MR#: [id number] Acct: [id number] Name: BRENDA LE Rep #:[id number] : 1965 59 From: Babak Garcia DO PCP: ESEQUIEL Headley Status:REG ER Location: ED HPI History of [...] as her lungs were clear for them. [facility] Medical History Obesity (BMI 30-39.9) Hyponatremia Leukocytosis [...] of cholecystectomy Social History housing: other details: retirement. Smoking Status: Former smoker how long ago [...] H Lymph % (Auto) Cancelled 8.6 L Price % (Auto) Cancelled 4.7 Eos % (Auto) [...] Drop Cells Cancelled Ovalocytes Cancelled Stomatocytes Cancelled [place] Bodies Cancelled Sara Cells Cancelled Bite Cells [...] Clarity Clear Urine pH 6.5 Ur Specific Rosser 1.010 Urine Protein 15 H Urine Glucose [...] (Auto) Neut % (Auto) Lymph % (Auto) Price % (Auto) Eos % (Auto) Baso % [...] Target Cells Tear Drop Cells Ovalocytes Stomatocytes [place] Bodies Sara Cells Bite Cells Crenated Cell [...] Color Urine Clarity Urine pH Ur Specific [place] Urine Protein Urine Glucose (UA) Urine Ketones Urine Occult Blood Urine Nitrite Urine Bilirubin Urine Urobilinogen Ur Leukocyte Esterase Urine RBC Urine WBC Ur Squamous Epith Cells Urine Bacteria Urine Mucus Radiography Diagnostic Testing: Clinical Impression(s) from Imaging Studies Chest X-Ray 12/21/24 08:48 IMPRESSION: Pulmonary venous congestion. Reading Location: [facility] Discharge Plan Triage Chief Complaint: Shortness of [...] your doctor in outpatient setting. Print Language: Tuvaluan Disposition Disposition: Home, Self Care What to do if you have Problems For any increased pain, shortness of breath, bleeding, nausea or vomiting, chestpain, or any unexpected problems, contact your Primary Care Provider. Call [facility] ([phone]) or report to the closest Emergency Room. Call 911 if necessary. 12/21/24 1214 <Electronically signed by Babak Garcia DO> Cosigner Signature (if applicable): CC: ESEQUIEL Salmon ~ Signed [facility] Work Phone: Evaluation noteNo assessment information available [facility] Work Phone: evaluation note* Diagnosis Chronic constipation Unspecified constipation [facility] Diagnosis Chronic idiopathic constipation Unspecified constipation Iron deficiency anemia, unspecified iron deficiency anemia type [facility] Diagnosis Tachycardia- Primary Tachycardia, unspecified SVT (supraventricular tachycardia) ([facility]) Other specified cardiac dysrhythmias Acute diastolic CHF (congestive heart failure) ([facility]) Acute diastolic heart failure Chronic obstructive pulmonary disease, unspecified COPD type ([facility]) LIDA (obstructive sleep apnea) Obstructive sleep apnea (adult) (pediatric) Water intoxication Other fluid overload Type 2 diabetes mellitus with diabetic nephropathy, with long-term current use of insulin ([facility]) Schizophreniform disorder, chronic condition ([facility]) Schizophreniform disorder, chronic condition Vitamin D deficiency Unspecified vitamin D deficiency Advance care planning Other specified counseling [facility] Diagnosis Right hip pain- Primary Pain in joint, pelvic region and thigh [facility]* Diagnosis Skin irritation- Primary Unspecified disorder of skin and subcutaneous tissue Rosacea [facility]* Diagnosis Chronic constipation Unspecified constipation [facility]* Diagnosis Restless leg syndrome Restless legs syndrome (RLS) [facility]* Diagnosis Injury of toenail of right foot, initial encounter- Primary [facility]* Diagnosis Conjunctivitis of left eye, unspecified conjunctivitis type- Primary Facial infection Other specified infectious and parasitic diseases [facility]* Diagnosis Encounter for screening mammogram for breast cancer [facility]* Diagnosis GERD without esophagitis Esophageal reflux Epigastric pain Abdominal pain, epigastric [facility]* Diagnosis Type 2 diabetes mellitus with diabetic nephropathy, with long-term current use of insulin ([facility])- Primary Schizophreniform disorder, chronic condition (HCC) Schizophreniform disorder, chronic condition Hyperlipidemia, unspecified hyperlipidemia type LIDA (obstructive sleep apnea) Obstructive sleep apnea (adult) (pediatric) Rosacea Upper back pain Gassiness Flatulence, eructation, and gas pain documented in this encounter [facility] note* Diagnosis Hyperlipidemia, unspecified hyperlipidemia type documented in this encounter [facility] note* Diagnosis Type 2 diabetes mellitus with diabetic nephropathy, with long-term current use of insulin ([facility]) documented in this encounter [facility] note* Diagnosis GERD without esophagitis Esophageal reflux Epigastric pain Abdominal pain, epigastric documented in this encounter [facility] note* Diagnosis COVID-19 documented in this encounter [facility] note* Diagnosis Chest pain, unspecified type- Primary Weight loss Loss of weight Type 2 diabetes mellitus with diabetic nephropathy, with long-term current use of insulin ([facility]) Hyperlipidemia, unspecified hyperlipidemia type GERD without esophagitis Esophageal reflux Acute diastolic CHF (congestive heart failure) (HCC) Acute diastolic heart failure Schizophreniform disorder, chronic condition ([facility]) Schizophreniform disorder, chronic condition Fatigue, unspecified type documented in this encounter [facility] note* Diagnosis Tachycardia- Primary Tachycardia, unspecified documented in this encounter [facility] note* Diagnosis Restless leg syndrome Restless legs syndrome (RLS) documented in this encounter [facility] note* Diagnosis Encounter for screening mammogram for breast cancer documented in this encounter [facility] note* Diagnosis Hyperlipidemia, unspecified hyperlipidemia type documented in this encounter [facility] note* Diagnosis Onset Date Resolution Status COPD exacerbation chronic [facility] Work Phone: Evaluation note* Diagnosis Type 2 diabetes mellitus with diabetic nephropathy, with long-term current use of insulin ([facility]) documented in this encounter [facility] note* Diagnosis Itching in the vaginal area- Primary Pruritus of genital organs documented in this encounter [facility] note* Diagnosis Type 2 diabetes mellitus with diabetic nephropathy, with long-term current use of insulin (HCC)- Primary documented in this encounter [facility] note* Diagnosis Onset Date Resolution Status COPD exacerbation resolved [facility] Work Phone: Evaluation note* Diagnosis Primary hypertension- Primary Unspecified essential hypertension Pure hypercholesterolemia SVT (supraventricular tachycardia) Other specified cardiac dysrhythmias documented in this encounter [facility] note* Diagnosis Pain in both lower extremities GERD without esophagitis Esophageal reflux Epigastric pain Abdominal pain, epigastric [facility] Acute constipation- Primary Unspecified constipation Nasal dryness Other diseases of nasal cavity and sinuses Pain in both lower extremities Leg weakness, bilateral Other musculoskeletal symptoms referable to limbs Sedative, hypnotic or anxiolytic dependence, uncomplicated (HCC) Acute respiratory failure with hypoxia (HCC) Acute respiratory failure Chronic obstructive pulmonary disease, unspecified COPD type (HCC) SVT (supraventricular tachycardia) ([facility]) Other specified cardiac dysrhythmias [facility] Leg weakness, bilateral Other musculoskeletal symptoms referable to limbs [facility] Diagnosis Leg weakness, bilateral- Primary Other musculoskeletal symptoms referable to limbs [facility] Diagnosis Type 2 diabetes mellitus with diabetic nephropathy, with long-term current use of insulin ([facility])- Primary [facility] Diagnosis Leg weakness, bilateral- Primary Other musculoskeletal symptoms referable to limbs [facility] Diagnosis Leg weakness, bilateral- Primary Other musculoskeletal symptoms referable to limbs [facility] Diagnosis Leg weakness, bilateral- Primary [...] both lower extremities [facility] Diagnosis Fatigue, unspecified type- Primary Pain in both lower extremities Type 2 diabetes mellitus with diabetic nephropathy, with long-term current use of insulin ([facility]) [facility] Diagnosis Weakness of both lower extremities- Primary [facility] Diagnosis Type 2 diabetes mellitus with diabetic nephropathy, with long-term current use of insulin (HCC)- Primary Thrombocytopenia (HCC) Thrombocytopenia, unspecified Elevated liver enzymes Other nonspecific abnormal serum enzyme levels [facility] Diagnosis Weakness of both lower extremities- Primary [facility] Diagnosis Weakness of both lower extremities- Primary Leg weakness, bilateral Other musculoskeletal symptoms referable to limbs [facility]* Diagnosis Uncontrolled type 2 diabetes mellitus with hyperglycemia (HCC)- Primary Thrombocytopenia (HCC) Thrombocytopenia, unspecified Elevated liver enzymes Other nonspecific abnormal serum enzyme levels [facility]* Diagnosis Uncontrolled type 2 diabetes mellitus with hyperglycemia (HCC) [facility]* Diagnosis Weakness of both lower extremities- Primary [facility] Diagnosis Weakness of both lower extremities- Primary [facility]* Diagnosis Weakness of both lower extremities- Primary [facility]* Diagnosis Uncontrolled type 2 diabetes mellitus with hyperglycemia (HCC)- Primary [facility]* Diagnosis Weakness of both lower extremities- Primary [facility]* Diagnosis Folliculitis- Primary Other specified disease of hair and hair follicles Fatigue, unspecified type [facility]* Diagnosis Restless leg syndrome Restless legs syndrome (RLS) [facility]* Diagnosis GERD without esophagitis Esophageal reflux Epigastric pain Abdominal pain, epigastric [facility]* Diagnosis Uncontrolled type 2 diabetes mellitus with hyperglycemia (HCC) [facility]* Diagnosis Acute constipation Unspecified constipation [facility]* Diagnosis Encounter for screening mammogram for breast cancer [facility]* Diagnosis Uncontrolled type 2 diabetes mellitus [...] deficiency Pure hypercholesterolemia [facility]* Diagnosis Hyperlipidemia, unspecified hyperlipidemia type [facility]* Diagnosis Behavioral change Unspecified disturbance of conduct Altered mental status, unspecified altered mental status type [facility]* Diagnosis SOB (shortness of breath) Shortness of breath Cough [facility] Diagnosis Pain of right eye- Primary Pain in or around eye [facility]* Diagnosis Acute diastolic CHF (congestive heart failure) (HCC) Acute diastolic heart failure [facility]* Diagnosis LIDA (obstructive sleep apnea)- Primary Obstructive sleep apnea (adult) (pediatric) Acute exacerbation of chronic obstructive pulmonary disease (COPD) (HCC) Obstructive chronic bronchitis with exacerbation Tachycardia Tachycardia, unspecified Tinea cruris Dermatophytosis of groin and perianal area [facility]* Diagnosis Uncontrolled type 2 diabetes mellitus with hyperglycemia ([facility]) [facility]* Diagnosis Chronic obstructive pulmonary disease, unspecified COPD type (HCC)- Primary Leg pain, bilateral Pain in limb Encounter for immunization Need for other specified prophylactic vaccination against single bacterial disease [facility]* Diagnosis Primary hypertension- Primary Unspecified essential hypertension Pure hypercholesterolemia SVT (supraventricular tachycardia) ([facility]) Other specified cardiac dysrhythmias Tachycardia Tachycardia, unspecified [facility]* Diagnosis Nasal dryness Other diseases of nasal cavity and sinuses [facility]* Diagnosis Leg pain, bilateral- Primary Pain in limb [facility] Diagnosis Leg pain, bilateral Pain in limb GERD without esophagitis Esophageal reflux Epigastric pain Abdominal pain, epigastric [facility] Diagnosis Weakness of both lower extremities- Primary Uncontrolled type 2 diabetes mellitus with hyperglycemia ([facility]) Hyperlipidemia, unspecified hyperlipidemia type Leg pain, bilateral Pain in limb Weakness of both lower extremities [facility] Diagnosis Weakness of both lower extremities [facility] Diagnosis Hyponatremia- Primary Hyposmolality and/or hyponatremia Leg pain, bilateral Pain in limb [facility]* Diagnosis Pneumonia of right lung due to infectious organism, unspecified part of lung- Primary Fever, unspecified fever cause Acute cough URI, acute Acute upper respiratory infections of unspecified site Acute cough [facility]* Diagnosis Acute cough [facility] Diagnosis Acute constipation Unspecified constipation [facility] Diagnosis Leg pain, bilateral- Primary Pain in limb Bacterial pneumonia Bacterial pneumonia, unspecified Bacterial pneumonia Bacterial pneumonia, unspecified [facility] Diagnosis Bacterial pneumonia Bacterial pneumonia, unspecified [facility]* Diagnosis Leg pain, bilateral Pain in limb [facility] Diagnosis COVID- Primary Acute diastolic CHF [...] disorder, chronic condition [facility]* Diagnosis Leg pain, bilateral Pain in limb [facility]* Diagnosis Exposure to hepatitis B- Primary Contact with or exposure to other viral diseases [facility]* Diagnosis Hyponatremia- Primary Hyposmolality and/or hyponatremia Leukocytosis, unspecified type [facility]* Diagnosis False-positive serological test result [R76.8]- Primary [facility]* Diagnosis Hyponatremia- Primary Hyposmolality and/or hyponatremia [facility] Diagnosis Tobacco abuse Tobacco use disorder [facility]* Diagnosis Hepatitis B core antibody positive- Primary Other and unspecified nonspecific immunological findings [facility] Diagnosis Water intoxication- Primary Other fluid [...] of insulin (HCC) [facility] Diagnosis Liver function test abnormality- Primary Other abnormal blood chemistry Acute diastolic CHF (congestive heart failure) (HCC) Acute diastolic heart failure documented in this encounter [facility] note* Diagnosis Elevated liver enzymes- Primary Other nonspecific abnormal serum enzyme levels Hepatitis B core antibody positive Other and unspecified nonspecific immunological findings documented in this encounter [facility] note* Diagnosis Liver function test abnormality- Primary Other abnormal blood chemistry Hyponatremia Hyposmolality and/or hyponatremia documented in this encounter [facility] note* Diagnosis Elevated liver enzymes Other nonspecific abnormal serum enzyme levels documented in this encounter [facility] [place] note* Diagnosis Encounter for screening mammogram for breast cancer [facility] Diagnosis Leg pain, bilateral Pain in limb [facility] Diagnosis Leg pain, bilateral Pain in limb documented in this encounter [facility] [place] note* Diagnosis Cough, unspecified type documented in this encounter [facility] note* Diagnosis Hyponatremia- Primary Hyposmolality and/or hyponatremia [...] Cough, unspecified type documented in this encounter [facility] note* Diagnosis Primary hypertension- Primary Unspecified essential hypertension SVT (supraventricular tachycardia) (HCC) Other specified cardiac dysrhythmias documented in this encounter [facility] [place] note* Diagnosis Onset Date Resolution Status Admit Date Constipation noneactive May 10, 025 12:24pm [facility] Work Phone: [facility]* Diagnosis Nocturnal enuresis- Primary documented in this encounter [facility] note* Diagnosis GERD without esophagitis- Primary Esophageal [...] sleep apnea (adult) (pediatric) SVT (supraventricular tachycardia) ([facility]) Other specified cardiac dysrhythmias Edema, unspecified type Tachycardia Tachycardia, unspecified Acute diastolic CHF (congestive heart failure) (HCC) Acute diastolic heart failure Obesity, Class II, BMI 35-39.9 Obesity, unspecified Fatigue, unspecified type Encounter for immunization Need for other specified prophylactic vaccination against single bacterial disease Medication monitoring encounter Encounter for therapeutic drug monitoring [facility] Author Amy Moreno [facility] August 14, 2023 10:20pm Note Date/Time August 14, 2023 1 0:20pm [facility] Medical Records Department [address] [place] [address] H&P Exam - Hospitalist 08/14/232207 MR#: [id number] Acct: [id number] Name: BRENDA LE Rep #:[id number] : 1965 57 From: Amy Moreno MD [...] Tobacco use, Obesity who presents to the [facility] ED on 08/14/23with history of 3 [...] as patient complaining of significant nasal congestion. [facility] Medical History (Updated 08/14/23 @ [...] Dr. Amy Moreno MD) housing: other details: retirement. Smoking Status: Former smoker how long ago [...] (Auto) 79.4 H, Lymph % (Auto) 12.3 L,Price % (Auto) 7.5, Eos % (Auto) 0.0, [...] Tobacco use, Obesity who presents to the [facility] ED on 08/14/23with history of 3 [...] Full code. Charges/Coding Visit Charges Inpatient E&M: 00634 Init Hosp L3 08/14/232219 <Electronically signed by Amy Moreno MD> Cosigner Signature (if applicable): CC: Dr. Amy Moerno MD; Dr. Aleksandar Jones MD~ Signed [facility] Work Phone: Hospital Discharge instructions Additional Instructions You tested positive for COVID-19 here in the emergency department. Start the steroid that was sent to your pharmacy tomorrow as you were given a dose here today already. Use Zofran as needed for nausea. Ensure adequate hydration. Return with worsening symptoms or any concerns. Follow-up with your doctor in outpatient setting.[facility] Work Phone: Reason for referral (narrative)* Diagnostic Procedure Only (Routine) - Pending Review Specialty Diagnoses / Procedures Referred By Jenny cotter Referred To Contact [facility] Diagnoses Encounter for screening mammogram for breast cancer Procedures FRANNY SCREENING SCREENING MAMMOGRAPHY BI 2-VIEW BREAST INC CAD Aleksandar Jones MD [address] [place] [address] [facility] [address] [place] [address] Referral ID Status Reason Start Date Expiration Date Visits Requested Visits Authorized [id number] Pending Review Auto-Generat ed Referral 2 09/06/2023 1 1 [facility] for referral (narrative)* Diagnostic Procedure Only (Routine) - Pending Review Specialty Diagnoses / Procedures Referred By Contac t Referred To Contact [facility] Diagnoses Chest pain, unspecified type Procedures NM CARDIAC PERF STRESS/PHARM MYOCARDIAL SPECT MULTIPLE STUDIES Radha Batista APRN.TOOL PROFILING MACHINE SET UP OPERATOR [address] [place] [address] [facility] [address] [place] [address] Referral ID Status Reason Start Date Expiration Date Visits Requested Visits Authorized [id number] Pending Review Auto-Generat ed Referral 04/29/2023 05/28/2024 1 1 * Outpatient Procedure (Routine) - Closed Specialty Diagnoses / Procedures Referred By Contac t Referred To Contact [facility] Diagnoses Chest pain, unspecified type Procedures ECG COMPLETE ECG ROUTINE ECG W/LEAST 12 LDS W/I&R Radha Batista APRN.TOOL PROFILING MACHINE SET UP OPERATOR [address] [place] [address] [facility] [place] [address] [place] [address] Referral ID Status Reason Start Date Expiration Date V isits Requested Visits Authorized [id number] Closed Auto-Generate d Referral 04/29/2023 04/28/2024 1 1 [facility] for referral (narrative)* Diagnostic Procedure Only (Routine) - Pending Review Specialty Diagnoses / Procedures Referred By Contac t Referred To Contact [facility] Diagnoses Encounter for screening mammogram for breast cancer Procedures FRANNY SCREENING SCREENING MAMMOGRAPHY BI 2-VIEW BREAST INC CAD Aleksandar Jones MD [address] [place] [address] [facility] [address] [place] [address] Referral ID Status Reason Start Date Expiration Date Visits Requested Visits Authorized [id number] Pending Review Auto-Generat ed Referral 07/16/2023 08/14/2024 1 1 [facility] for referral (narrative)* Diagnostic Procedure Only (Routine) - New Request Specialty Diagnoses / Procedures Referred By Jenny t Referred To Contact [facility] Diagnoses Encounter for screening mammogram for breast cancer Procedures FRANNY SCREENING W AUGUSTO SCREENING DIGITAL BREAST TOMOSYNTHESIS BI SCREENING MAMMOGRAPHY BI 2-VIEW BREAST INC Aleksandar Torres MD [address] [place] [address] [facility] [address] [place] [phone] Referral ID Status Reason Start Date Expiration Date Visits Requested Visits Authorized [id number] New Request Auto-Generat ed Referral 06/23/2024 07/23/2025 1 1 T [facility] for referral (narrative)* Outpatient Procedure (Routine) - New Request Specialty Diagnoses / Procedures Referred By Contvirgil t Referred To Contact [facility] Diagnoses Primary hypertension Pure hypercholesterolemia SVT (supraventricular tachycardia) (HCC) Tachycardia Procedures ECG COMPLETE ECG ROUTINE ECG W/LEAST 12 [facility] W/I&R Fuentes Renee MD [address], [address] [place] [address] [facility] [place] [address] [place] [address] Referral ID Status Reason Start Date Expiration Date Visits Requested Visits Authorized [id number] New Request Auto-Generat ed Referral 09/20/2024 09/20/2025 1 1 [facility] for referral (narrative)* Outpatient Procedure (Routine) - Authorized Specialty Diagnoses / Procedures Referred By Contac t Referred To Contact [facility] Diagnoses Weakness of both lower extremities Procedures PVR ANK PRESS ASHELY VAS LAB NON-INVAS PHYSIOLOGIC STD EXTREMITY ART 2 LEVEL Radha Batista APRN.TOOL PROFILING MACHINE SET UP OPERATOR [address] [place] [address] [facility] [place] [address] [place] [address] Referral ID Status Reason Start Date Expiration Date Visits Requested Visits Authorized [id number] Authorized Auto-Generat ed Referral 11/02/2024 11/02/2025 1 1 * Diagnostic Procedure Only (Routine) - Closed Specialty Diagnoses / Procedures Referred By Contac t Referred To Contact [facility] Diagnoses Weakness of both lower extremities Procedures XR LUMBAR GENERAL 3V AP/LAT/L5-S1 RADEX SPINE LUMBOSACRAL 2/3 VIEWS Radha Batista APRN.TOOL PROFILING MACHINE SET UP OPERATOR [address] [place] [address] [place] [address] Referral ID Status Reason Start Date Expiration Date V isits Requested Visits Authorized [id number] Closed Auto-Generate d Referral 11/02/2024 12/02/2025 1 1 [facility] for referral (narrative)* Diagnostic Procedure Only (Routine) - Closed Specialty Diagnoses / Procedures Referred By Contac t Referred To Contact [facility] Diagnoses Weakness of both lower extremities Procedures XR LUMBAR GENERAL 3V AP/LAT/L5-S1 RADEX SPINE LUMBOSACRAL 2/3 VIEWS Radha Batista APRN.TOOL PROFILING MACHINE SET UP OPERATOR [address] [place] [address] [place] [address] Referral ID Status Reason Start Date Expiration Date V isits Requested Visits Authorized [id number] Closed Auto-Generate d Referral 11/02/2024 12/02/2025 1 1 [facility])No reason for referral information availableWMedina [facility] Work Phone: [facility] Narrative* Diagnostic Procedure Only (Routine) - Closed Specialty Diagnoses / Procedures Referred By Contac t Referred To Contact [facility] Diagnoses Chest pain, unspecified type Procedures NM CARDIAC PERF STRESS/PHARM MYOCARDIAL SPECT MULTIPLE STUDIES Radha Batista, ADIEL.TOOL PROFILING MACHINE SET UP OPERATOR [address] [place] [address] [facility] [address] [place] [address] Referral ID Status Reason Start Date Expiration Date V isits Requested Visits Authorized [id number] Closed Auto-Generate d Referral 05/15/2023 10/12/2023 3 1 [facility] for visit Narrative* Diagnostic Procedure Only (Routine) - Closed Specialty Diagnoses / Procedures Referred By Jenny cotter Referred To Contact X[facility] IMAGING Diagnoses Weakness of both lower extremities Procedures XR LUMBAR GENERAL 3V AP/LAT/L5-S1 RADEX SPINE LUMBOSACRAL 2/3 VIEWS Radha Batista, SMELLER.TOOL PROFILING MACHINE SET UP OPERATOR [address] [place] [address] [place] [address] Referral ID Status Reason Start Date Expiration Date V isits Requested Visits Authorized [id number] Closed Auto-Generate d Referral 11/02/2024 12/02/2025 1 1 [facility] for visit Narrative* Diagnostic Procedure Only (Routine) - Closed Specialty Diagnoses / Procedures Referred By Rafaelaac t Referred To Contact [facility] Diagnoses Encounter for screening mammogram for breast cancer Procedures FRANNY SCREENING W AUGUSTO SCREENING DIGITAL BREAST TOMOSYNTHESIS BI SCREENING MAMMOGRAPHY BI 2-VIEW BREAST INC CAD Aleksandar Jones MD [address] [place] [address] Phone: tel: fax: [facility] [address] [place] [address] Referral ID Status Reason Start Date Expiration Date V isits Requested Visits Authorized [id number] Closed Auto-Generate d Referral 06/23/2024 07/23/2025 1 1 [facility] Summary Purpose Family History No Family [...] Will No July 30 4:52pm Power of Utilities Equipment Repairer No July 30, 2021 4:52pm Documents on File Type Date Recorded 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(s) 12/04/2016 3:21 PM Advance Directive(s) 01/11/2009 10:19 PM Advance Directive(s) 12/06/2008 4:00 PM Advance Directive Response Recorded Date/ Time Advance Directives No July 26, 2015 12:08pm Living Will No April 09, 2022 3:50pm Power of Utilities Equipment Repairer No April 09 2 3:50pm Advance Directive Response Recorded Date/ Time Advance Directives No July 26, 2015 12:08pm Living Will No June 05 2 3:59pm Power of Utilities Equipment Repairer No June 05, 022 3:59pm Documents on File Type Date 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(s) 01/11/2009 10:19 PM Advance Directive(s) 12/06/2008 4:00 PM Documents on File Type Date 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(s) 01/11/2009 10:19 PM Advance Directive(s) 12/06/2008 4:00 PM Advance Directive Response Recorded Date/ Time Advance Directives No July 26, 2015 11:08am Living Will No June 05 2 2:59pm Power of Utilities Equipment Repairer No June 05, 2 022 2:59pm Advance Directive Response Recorded Date/ Time Advance Directives No July 26, 2015 12:08pm Living Will No August 14 5:05pm Power of Utilities Equipment Repairer No August 14, 2023 5:05pm Advance Directive Response Recorded Date/ Time Name of Medical Power of Utilities Equipment Repairer Melony Willard August 15, 2023 12:13am Advance Directives No July 26, 2015 12:08pm Living Will No August 15 12:13am Power of Utilities Equipment Repairer Yes August 15, 2023 12:13am Advance Directive Response Recorded Date/ Time Name of Medical Power of Utilities Equipment Repairer Melony Shell August 14, 2023 11:13pm Advance Directives No July 26, 2015 11:08am Living Will No August 14 11:13pm Power of Utilities Equipment Repairer Yes August 14, 2023 11:13pm Advance Directive Response Recorded Date/ Time Name of Medical Power of Utilities Equipment Repairer Melony Willard August 14, 2023 11:13pm Advance Directives No July 26, 2015 11:08am Living Will No December 13, 2023 6:19pm Power of Utilities Equipment Repairer No December 12 6:19pm Advance Directive Response Recorded Date/ Time Advance Directives No July 26, 2015 12:08pm Living Will No December 13, 2023 7:19pm Power of Utilities Equipment Repairer No December 12 7:19pm Advance Directive Response Recorded Date/ Time Living Will No September 12 12:34am Power of Utilities Equipment Repairer No September 12, 2024 12:34am Living Will No October 13 5:23am Power of Utilities Equipment Repairer No October 13 025 5:23am Living Will No October 14 4:06pm Power of Utilities Equipment Repairer No October 14 025 4:06pm Living Will No December 13, 2023 7:19pm Power of Utilities Equipment Repairer No December 12 7:19pm Living Will No November 10 1:40am Power of Utilities Equipment Repairer No November 10, 2024 1:40am Living Will No November 13 2:33am Power of Utilities Equipment Repairer No November 13, 2024 2:33am Living Will No December 21, 2024 8:47am Power of Utilities Equipment Repairer No December 21 8:47am Advance Directives No July 26, 2015 12:08pm Advance Directive Response Recorded Date/ Time Living Will No September 12 12:34am Do you have a Healthcare Power of Utilities Equipment Repairer? No September 12, 2024 12:34am Living Will No October 13 5:23am Do you have a Healthcare Power of Utilities Equipment Repairer? No October 13, 2024 5:23am Living Will No October 14 4:06pm Do you have a Healthcare Power of Utilities Equipment Repairer? No October 14, 2024 4:06pm Living Will No December 11, 2024 5:48am Do you have a Healthcare Power of Utilities Equipment Repairer? No December 11, 2024 5:48am Living Will No November 10 1:40am Do you have a Healthcare Power of Utilities Equipment Repairer? No November 10, 2024 1:40am Living Will No November 13 2:33am Do you have a Healthcare Power of Utilities Equipment Repairer? No November 13, 2024 2:33am Living Will No December 21, 2024 8:47am Do you have a Healthcare Power of Utilities Equipment Repairer? No December 21, 2024 8:47am Advance Directives No July 26, 2015 12:08pm Advance Directive Response Recorded Date/ Time Living Will No December 11, 2024 5:48am Do you have a Healthcare Power of Utilities Equipment Repairer? No December 11, 2024 5:48am Living Will No January 10, 2025 10:11pm Do you have a Healthcare Power of Utilities Equipment Repairer? No January 10, 2025 10:11pm Living Will No November 13 2:33am Do you have a Healthcare Power of Utilities Equipment Repairer? No November 13, 2024 2:33am Living Will No December 21, 2024 8:47am Do you have a Healthcare Power of Utilities Equipment Repairer? No December 21, 2024 8:47am Advance Directives No July 26, 2015 12:08pm Advance Directive Response Recorded Date/ Time Living Will No January 10, 2025 10:11pm Do you have a Healthcare Power of Utilities Equipment Repairer? No January 10, 2025 10:11pm Advance Directives [...] 02pm BIBASILAR PNEUMONIA, AE COPD, RESP INSUF & November 09, 2024 11:49pm BIBASILAR PNEUMONIA, [...] 6pm S/O February 02, 2025 2:1 7pm [facility] March 01, 2025 7:0 5am Chief Complaint Admit Date S/O February 02, 2025 2:1 7pm [facility] March 01, 2025 7:0 5am [facility] March 28, 2025 5: 00am [facility] April 11, 2025 10 :00am NICOTINE DEPENDENCE May 06, 2025 12:4 8pm Constipation May 10, 2025 12:2 4pm Reason for Visit Admit Date Constipation May 10, 2025 12:2 4pm Chief Complaint Admit Date S/O February 02, 2025 2:1 7pm [facility] March 01, 2025 7:0 5am [facility] March 28, 2025 5: 00am [facility] April 11, 2025 10 :00am [facility] April 26, 2025 7: 45am NICOTINE DEPENDENCE May 06, 2025 12:4 8pm Constipation May 10, 2025 12:2 4pm Reason for Visit Admit Date Abdominal pain May 10, 2025 12:2 4pm Nausea May 10, 2025 12:2 4pm Constipation May 10, 2025 12:2 4pm Chief Complaint Admit Date [facility] March 01, 2025 7:0 5am [facility] March 28, 2025 5: 00am [facility] April 11, 2025 10 :00am [facility] April 26, 2025 7: 45am NICOTINE DEPENDENCE May 06, 2025 12:4 8pm Constipation May 10, 2025 12:2 4pm [facility] May 24, 2025 5:00am Reason for Visit Admit Date Abdominal pain May 10, 2025 12:2 4pm Nausea May 10, 2025 12:2 4pm Constipation May 10, 2025 12:2 4pm Abdominal pain June 23, 2025 7:58am Dysphagia June 23, 2025 7:58am Nausea June 23, 2025 7:58am Chief Complaint Admit Date [facility] March 28, 2025 5: 00am [facility] April 11, 2025 10 :00am [facility] April 26, 2025 7: 45am NICOTINE DEPENDENCE May 06, 2025 12:4 8pm Constipation May 10, 2025 12:2 4pm [facility] May 24, 2025 5:00am [facility] June 21 5:00am Procedure F/U-Abdominal [...] initial encounter Procedures CONSULT TO PODIATRY OFFICE/OUTPATIENT [facility] 60-74 MINUTES Zaira Mancilla, SMELLER.TOOL PROFILING MACHINE SET UP OPERATOR [address] [place] [address] Referral ID Status Reason Start Date Expiration Date Visits Requested Visits Authorized [id number] Authorized PCP Requested Referral 07/05/2022 07/05/2023 1 1 Specialty Diagnoses / Procedures Referred By Contac t Referred To Contact [facility] Diagnoses Leg weakness, bilateral Procedures CONSULT TO PHYSICAL THERAPY PHYSICAL THERAPY EVALUATION [facility] MINS Radha Batista, SMELLER.TOOL PROFILING MACHINE SET UP OPERATOR [address] [place] [address] [facility] [place] [address] [place] [address] Referral ID Status Reason Start Date Expiration Date Visits Requested Visits Authorized [id number] Pending Review PCP Requested Referral Auto-Generate d Referral 01/13/2024 01/12/2025 99 99 Additional Source Comments INFORMATION SOURCE (unrecogn ized section and content) DATE CREATED AUTHOR 04/03/2018 [facility] DATE CREATED AUTHOR AUTHOR'S ORGANIZ ATION 07/21/2021 [facility] DATE CREATED AUTHOR AUTHOR'S ORGANIZ ATION 06/29/2025 [facility] DATE CREATED AUTHOR AUTHOR'S ORGANIZ ATION 08/21/2025 [facility] Goals (unrecognized section and content) Goals [...] any alcohol or drug abuse patient.[facility] the event this information is protected by the Federal Confidentiality of Alcohol and Drug Abuse Patient Records regulations: The Federal rules restrict any use of the information to criminally investigate or prosecute any alcohol or drug abuse patient.[facility] the event this information is protected by the Federal Confidentiality of Alcohol and Drug Abuse Patient Records regulations: The Federal rules restrict any use of the information to criminally investigate or prosecute any alcohol or drug abuse patient.[facility] the event this information is protected by the Federal Confidentiality of Alcohol and Drug Abuse Patient Records regulations: The Federal rules restrict any use of the information to criminally investigate or prosecute any alcohol or drug abuse patient.[facility] the event this information is protected by the Federal Confidentiality of Alcohol and Drug Abuse Patient Records regulations: The Federal rules restrict any use of the information to criminally investigate or prosecute any alcohol or drug abuse patient.[facility] the event this information is protected by the Federal Confidentiality of Alcohol and Drug Abuse Patient Records regulations: The Federal rules restrict any use of the information to criminally investigate or prosecute any alcohol or drug abuse patient.[facility] the event this information is protected by the Federal Confidentiality of Alcohol and Drug Abuse Patient Records regulations: The Federal rules restrict any use of the information to criminally investigate or prosecute any alcohol or drug abuse patient.[facility] the event this information is protected by the Federal Confidentiality of Alcohol and Drug Abuse Patient Records regulations: The Federal rules restrict any use of the information to criminally investigate or prosecute any alcohol or drug abuse patient.[facility] the event this information is protected by the Federal Confidentiality of Alcohol and Drug Abuse Patient Records regulations: The Federal rules restrict any use of the information to criminally investigate or prosecute any alcohol or drug abuse patient.[facility] the event this information is protected by the Federal Confidentiality of Alcohol and Drug Abuse Patient Records regulations: The Federal rules restrict any use of the information to criminally investigate or prosecute any alcohol or drug abuse patient.[facility] the event this information is protected by the Federal Confidentiality of Alcohol and Drug Abuse Patient Records regulations: The Federal rules restrict any use of the information to criminally investigate or prosecute any alcohol or drug abuse patient.[facility] the event this information is protected by the Federal Confidentiality of Alcohol and Drug Abuse Patient Records regulations: The Federal rules restrict any use of the information to criminally investigate or prosecute any alcohol or drug abuse patient.[facility] the event this information is protected by the Federal Confidentiality of Alcohol and Drug Abuse Patient Records regulations: The Federal rules restrict any use of the information to criminally investigate or prosecute any alcohol or drug abuse patient.[facility] the event this information is protected by the Federal Confidentiality of Alcohol and Drug Abuse Patient Records regulations: The Federal rules restrict any use of the information to criminally investigate or prosecute any alcohol or drug abuse patient.[facility] the event this information is protected by the Federal Confidentiality of Alcohol and Drug Abuse Patient Records regulations: The Federal rules restrict any use of the information to criminally investigate or prosecute any alcohol or drug abuse patient.[facility] the event this information is protected by the Federal Confidentiality of Alcohol and Drug Abuse Patient Records regulations: The Federal rules restrict any use of the information to criminally investigate or prosecute any alcohol or drug abuse patient.[facility] the event this information is protected by the Federal Confidentiality of Alcohol and Drug Abuse Patient Records regulations: The Federal rules restrict any use of the information to criminally investigate or prosecute any alcohol or drug abuse patient.[facility] the event this information is protected by the Federal Confidentiality of Alcohol and Drug Abuse Patient Records regulations: The Federal rules restrict any use of the information to criminally investigate or prosecute any alcohol or drug abuse patient.[facility] the event this information is protected by the Federal Confidentiality of Alcohol and Drug Abuse Patient Records regulations: The Federal rules restrict any use of the information to criminally investigate or prosecute any alcohol or drug abuse patient.[facility]In the event this information is protected by the Federal Confidentiality of Alcohol and Drug Abuse Patient Records regulations: The Federal rules restrict any use of the information to criminally investigate or prosecute any alcohol or drug abuse patient.[facility]In the event this information is protected by the Federal Confidentiality of Alcohol and Drug Abuse Patient Records regulations: The Federal rules restrict any use of the information to criminally investigate or prosecute any alcohol or drug abuse patient.[facility]In the event this information is protected by the Federal Confidentiality of Alcohol and Drug Abuse Patient Records regulations: The Federal rules restrict any use of the information to criminally investigate or prosecute any alcohol or drug abuse patient.[facility]In the event this information is protected by the Federal Confidentiality of Alcohol and Drug Abuse Patient Records regulations: The Federal rules restrict any use of the information to criminally investigate or prosecute any alcohol or drug abuse patient.[facility]In the event this information is protected by the Federal Confidentiality of Alcohol and Drug Abuse Patient Records regulations: The Federal rules restrict any use of the information to criminally investigate or prosecute any alcohol or drug abuse patient.[facility]In the event this information is protected by the Federal Confidentiality of Alcohol and Drug Abuse Patient Records regulations: The Federal rules restrict any use of the information to criminally investigate or prosecute any alcohol or drug abuse patient.[facility]In the event this information is protected by the Federal Confidentiality of Alcohol and Drug Abuse Patient Records regulations: The Federal rules restrict any use of the information to criminally investigate or prosecute any alcohol or drug abuse patient.[facility]In the event this information is protected by the Federal Confidentiality of Alcohol and Drug Abuse Patient Records regulations: The Federal rules restrict any use of the information to criminally investigate or prosecute any alcohol or drug abuse patient.[facility]In the event this information is protected by the Federal Confidentiality of Alcohol and Drug Abuse Patient Records regulations: The Federal rules restrict any use of the information to criminally investigate or prosecute any alcohol or drug abuse patient.[facility]In the event this information is protected by the Federal Confidentiality of Alcohol and Drug Abuse Patient Records regulations: The Federal rules restrict any use of the information to criminally investigate or prosecute any alcohol or drug abuse patient.[facility]In the event this information is protected by the Federal Confidentiality of Alcohol and Drug Abuse Patient Records regulations: The Federal rules restrict any use of the information to criminally investigate or prosecute any alcohol or drug abuse patient.[facility]In the event this information is protected by the Federal Confidentiality of Alcohol and Drug Abuse Patient Records regulations: The Federal rules restrict any use of the information to criminally investigate or prosecute any alcohol or drug abuse patient.[facility]In the event this information is protected by the Federal Confidentiality of Alcohol and Drug Abuse Patient Records regulations: The Federal rules restrict any use of the information to criminally investigate or prosecute any alcohol or drug abuse patient.[facility]In the event this information is protected by the Federal Confidentiality of Alcohol and Drug Abuse Patient Records regulations: The Federal rules restrict any use of the information to criminally investigate or prosecute any alcohol or drug abuse patient.[facility]In the event this information is protected by the Federal Confidentiality of Alcohol and Drug Abuse Patient Records regulations: The Federal rules restrict any use of the information to criminally investigate or prosecute any alcohol or drug abuse patient.[facility]In the event this information is protected by the Federal Confidentiality of Alcohol and Drug Abuse Patient Records regulations: The Federal rules restrict any use of the information to criminally investigate or prosecute any alcohol or drug abuse patient.[facility]In the event this information is protected by the Federal Confidentiality of Alcohol and Drug Abuse Patient Records regulations: The Federal rules restrict any use of the information to criminally investigate or prosecute any alcohol or drug abuse patient.[facility]In the event this information is protected by the Federal Confidentiality of Alcohol and Drug Abuse Patient Records regulations: The Federal rules restrict any use of the information to criminally investigate or prosecute any alcohol or drug abuse patient.[facility]In the event this information is protected by the Federal Confidentiality of Alcohol and Drug Abuse Patient Records regulations: The Federal rules restrict any use of the information to criminally investigate or prosecute any alcohol or drug abuse patient.[facility]In the event this information is protected by the Federal Confidentiality of Alcohol and Drug Abuse Patient Records regulations: The Federal rules restrict any use of the information to criminally investigate or prosecute any alcohol or drug abuse patient.[facility]In the event this information is protected by the Federal Confidentiality of Alcohol and Drug Abuse Patient Records regulations: The Federal rules restrict any use of the information to criminally investigate or prosecute any alcohol or drug abuse patient.[facility]In the event this information is protected by the Federal Confidentiality of Alcohol and Drug Abuse Patient Records regulations: The Federal rules restrict any use of the information to criminally investigate or prosecute any alcohol or drug abuse patient.[facility]In the event this information is protected by the Federal Confidentiality of Alcohol and Drug Abuse Patient Records regulations: The Federal rules restrict any use of the information to criminally investigate or prosecute any alcohol or drug abuse patient.[facility]In the event this information is protected by the Federal Confidentiality of Alcohol and Drug Abuse Patient Records regulations: The Federal rules restrict any use of the information to criminally investigate or prosecute any alcohol or drug abuse patient.[facility]In the event this information is protected by the Federal Confidentiality of Alcohol and Drug Abuse Patient Records regulations: The Federal rules restrict any use of the information to criminally investigate or prosecute any alcohol or drug abuse patient.[facility]In the event this information is protected by the Federal Confidentiality of Alcohol and Drug Abuse Patient Records regulations: The Federal rules restrict any use of the information to criminally investigate or prosecute any alcohol or drug abuse patient.[facility]In the event this information is protected by the Federal Confidentiality of Alcohol and Drug Abuse Patient Records regulations: The Federal rules restrict any use of the information to criminally investigate or prosecute any alcohol or drug abuse patient.[facility]In the event this information is protected by the Federal Confidentiality of Alcohol and Drug Abuse Patient Records regulations: The Federal rules restrict any use of the information to criminally investigate or prosecute any alcohol or drug abuse patient.[facility]In the event this information is protected by the Federal Confidentiality of Alcohol and Drug Abuse Patient Records regulations: The Federal rules restrict any use of the information to criminally investigate or prosecute any alcohol or drug abuse patient.[facility]In the event this information is protected by the Federal Confidentiality of Alcohol and Drug Abuse Patient Records regulations: The Federal rules restrict any use of the information to criminally investigate or prosecute any alcohol or drug abuse patient.[facility]In the event this information is protected by the Federal Confidentiality of Alcohol and Drug Abuse Patient Records regulations: The Federal rules restrict any use of the information to criminally investigate or prosecute any alcohol or drug abuse patient.[facility]In the event this information is protected by the Federal Confidentiality of Alcohol and Drug Abuse Patient Records regulations: The Federal rules restrict any use of the information to criminally investigate or prosecute any alcohol or drug abuse patient.[facility]In the event this information is protected by the Federal Confidentiality of Alcohol and Drug Abuse Patient Records regulations: The Federal rules restrict any use of the information to criminally investigate or prosecute any alcohol or drug abuse patient.[facility]In the event this information is protected by the Federal Confidentiality of Alcohol and Drug Abuse Patient Records regulations: The Federal rules restrict any use of the information to criminally investigate or prosecute any alcohol or drug abuse patient.[facility]In the event this information is protected by the Federal Confidentiality of Alcohol and Drug Abuse Patient Records regulations: The Federal rules restrict any use of the information to criminally investigate or prosecute any alcohol or drug abuse patient.[facility]In the event this information is protected by the Federal Confidentiality of Alcohol and Drug Abuse Patient Records regulations: The Federal rules restrict any use of the information to criminally investigate or prosecute any alcohol or drug abuse patient.[facility]In the event this information is protected by the Federal Confidentiality of Alcohol and Drug Abuse Patient Records regulations: The Federal rules restrict any use of the information to criminally investigate or prosecute any alcohol or drug abuse patient.[facility]In the event this information is protected by the Federal Confidentiality of Alcohol and Drug Abuse Patient Records regulations: The Federal rules restrict any use of the information to criminally investigate or prosecute any alcohol or drug abuse patient.[facility]In the event this information is protected by the Federal Confidentiality of Alcohol and Drug Abuse Patient Records regulations: The Federal rules restrict any use of the information to criminally investigate or prosecute any alcohol or drug abuse patient.[facility]In the event this information is protected by the Federal Confidentiality of Alcohol and Drug Abuse Patient Records regulations: The Federal rules restrict any use of the information to criminally investigate or prosecute any alcohol or drug abuse patient.[facility]In the event this information is protected by the Federal Confidentiality of Alcohol and Drug Abuse Patient Records regulations: The Federal rules restrict any use of the information to criminally investigate or prosecute any alcohol or drug abuse patient.[facility]In the event this information is protected by the Federal Confidentiality of Alcohol and Drug Abuse Patient Records regulations: The Federal rules restrict any use of the information to criminally investigate or prosecute any alcohol or drug abuse patient.[facility]In the event this information is protected by the Federal Confidentiality of Alcohol and Drug Abuse Patient Records regulations: The Federal rules restrict any use of the information to criminally investigate or prosecute any alcohol or drug abuse patient.[facility]In the event this information is protected by the Federal Confidentiality of Alcohol and Drug Abuse Patient Records regulations: The Federal rules restrict any use of the information to criminally investigate or prosecute any alcohol or drug abuse patient.[facility]In the event this information is protected by the Federal Confidentiality of Alcohol and Drug Abuse Patient Records regulations: The Federal rules restrict any use of the information to criminally investigate or prosecute any alcohol or drug abuse patient.[facility]In the event this information is protected by the Federal Confidentiality of Alcohol and Drug Abuse Patient Records regulations: The Federal rules restrict any use of the information to criminally investigate or prosecute any alcohol or drug abuse patient.[facility]In the event this information is protected by the Federal Confidentiality of Alcohol and Drug Abuse Patient Records regulations: The Federal rules restrict any use of the information to criminally investigate or prosecute any alcohol or drug abuse patient.[facility]In the event this information is protected by the Federal Confidentiality of Alcohol and Drug Abuse Patient Records regulations: The Federal rules restrict any use of the information to criminally investigate or prosecute any alcohol or drug abuse patient.[facility]In the event this information is protected by the Federal Confidentiality of Alcohol and Drug Abuse Patient Records regulations: The Federal rules restrict any use of the information to criminally investigate or prosecute any alcohol or drug abuse patient.[facility]In the event this information is protected by the Federal Confidentiality of Alcohol and Drug Abuse Patient Records regulations: The Federal rules restrict any use of the information to criminally investigate or prosecute any alcohol or drug abuse patient.[facility]In the event this information is protected by the Federal Confidentiality of Alcohol and Drug Abuse Patient Records regulations: The Federal rules restrict any use of the information to criminally investigate or prosecute any alcohol or drug abuse patient.[facility]In the event this information is protected by the Federal Confidentiality of Alcohol and Drug Abuse Patient Records regulations: The Federal rules restrict any use of the information to criminally investigate or prosecute any alcohol or drug abuse patient.[facility]In the event this information is protected by the Federal Confidentiality of Alcohol and Drug Abuse Patient Records regulations: The Federal rules restrict any use of the information to criminally investigate or prosecute any alcohol or drug abuse patient.[facility]In the event this information is protected by the Federal Confidentiality of Alcohol and Drug Abuse Patient Records regulations: The Federal rules restrict any use of the information to criminally investigate or prosecute any alcohol or drug abuse patient.[facility]In the event this information is protected by the Federal Confidentiality of Alcohol and Drug Abuse Patient Records regulations: The Federal rules restrict any use of the information to criminally investigate or prosecute any alcohol or drug abuse patient.[facility]In the event this information is protected by the Federal Confidentiality of Alcohol and Drug Abuse Patient Records regulations: The Federal rules restrict any use of the information to criminally investigate or prosecute any alcohol or drug abuse patient.[facility]In the event this information is protected by the Federal Confidentiality of Alcohol and Drug Abuse Patient Records regulations: The Federal rules restrict any use of the information to criminally investigate or prosecute any alcohol or drug abuse patient.[facility]In the event this information is protected by the Federal Confidentiality of Alcohol and Drug Abuse Patient Records regulations: The Federal rules restrict any use of the information to criminally investigate or prosecute any alcohol or drug abuse patient.[facility]In the event this information is protected by the Federal Confidentiality of Alcohol and Drug Abuse Patient Records regulations: The Federal rules restrict any use of the information to criminally investigate or prosecute any alcohol or drug abuse patient.[facility]In the event this information is protected by the Federal Confidentiality of Alcohol and Drug Abuse Patient Records regulations: The Federal rules restrict any use of the information to criminally investigate or prosecute any alcohol or drug abuse patient.[facility]In the event this information is protected by the Federal Confidentiality of Alcohol and Drug Abuse Patient Records regulations: The Federal rules restrict any use of the information to criminally investigate or prosecute any alcohol or drug abuse patient.[facility]In the event this information is protected by the Federal Confidentiality of Alcohol and Drug Abuse Patient Records regulations: The Federal rules restrict any use of the information to criminally investigate or prosecute any alcohol or drug abuse patient.[facility]In the event this information is protected by the Federal Confidentiality of Alcohol and Drug Abuse Patient Records regulations: The Federal rules restrict any use of the information to criminally investigate or prosecute any alcohol or drug abuse patient.[facility]In the event this information is protected by the Federal Confidentiality of Alcohol and Drug Abuse Patient Records regulations: The Federal rules restrict any use of the information to criminally investigate or prosecute any alcohol or drug abuse patient.[facility]In the event this information is protected by the Federal Confidentiality of Alcohol and Drug Abuse Patient Records regulations: The Federal rules restrict any use of the information to criminally investigate or prosecute any alcohol or drug abuse patient.[facility]In the event this information is protected by the Federal Confidentiality of Alcohol and Drug Abuse Patient Records regulations: The Federal rules restrict any use of the information to criminally investigate or prosecute any alcohol or drug abuse patient.[facility]In the event this information is protected by the Federal Confidentiality of Alcohol and Drug Abuse Patient Records regulations: The Federal rules restrict any use of the information to criminally investigate or prosecute any alcohol or drug abuse patient.[facility]In the event this information is protected by the Federal Confidentiality of Alcohol and Drug Abuse Patient Records regulations: The Federal rules restrict any use of the information to criminally investigate or prosecute any alcohol or drug abuse patient.[facility]In the event this information is protected by the Federal Confidentiality of Alcohol and Drug Abuse Patient Records regulations: The Federal rules restrict any use of the information to criminally investigate or prosecute any alcohol or drug abuse patient.[facility]In the event this information is protected by the Federal Confidentiality of Alcohol and Drug Abuse Patient Records regulations: The Federal rules restrict any use of the information to criminally investigate or prosecute any alcohol or drug abuse patient.[facility]In the event this information is protected by the Federal Confidentiality of Alcohol and Drug Abuse Patient Records regulations: The Federal rules restrict any use of the information to criminally investigate or prosecute any alcohol or drug abuse patient.[facility]In the event this information is protected by the Federal Confidentiality of Alcohol and Drug Abuse Patient Records regulations: The Federal rules restrict any use of the information to criminally investigate or prosecute any alcohol or drug abuse patient.[facility]In the event this information is protected by the Federal Confidentiality of Alcohol and Drug Abuse Patient Records regulations: The Federal rules restrict any use of the information to criminally investigate or prosecute any alcohol or drug abuse patient.[facility]In the event this information is protected by the Federal Confidentiality of Alcohol and Drug Abuse Patient Records regulations: The Federal rules restrict any use of the information to criminally investigate or prosecute any alcohol or drug abuse patient.[facility]In the event this information is protected by the Federal Confidentiality of Alcohol and Drug Abuse Patient Records regulations: The Federal rules restrict any use of the information to criminally investigate or prosecute any alcohol or drug abuse patient.[facility]In the event this information is protected by the Federal Confidentiality of Alcohol and Drug Abuse Patient Records regulations: The Federal rules restrict any use of the information to criminally investigate or prosecute any alcohol or drug abuse patient.[facility]In the event this information is protected by the Federal Confidentiality of Alcohol and Drug Abuse Patient Records regulations: The Federal rules restrict any use of the information to criminally investigate or prosecute any alcohol or drug abuse patient.[facility]In the event this information is protected by the Federal Confidentiality of Alcohol and Drug Abuse Patient Records regulations: The Federal rules restrict any use of the information to criminally investigate or prosecute any alcohol or drug abuse patient.[facility]In the event this information is protected by the Federal Confidentiality of Alcohol and Drug Abuse Patient Records regulations: The Federal rules restrict any use of the information to criminally investigate or prosecute any alcohol or drug abuse patient.[facility]In the event this information is protected by the Federal Confidentiality of Alcohol and Drug Abuse Patient Records regulations: The Federal rules restrict any use of the information to criminally investigate or prosecute any alcohol or drug abuse patient.[facility]In the event this information is protected by the Federal Confidentiality of Alcohol and Drug Abuse Patient Records regulations: The Federal rules restrict any use of the information to criminally investigate or prosecute any alcohol or drug abuse patient.[facility]In the event this information is protected by the Federal Confidentiality of Alcohol and Drug Abuse Patient Records regulations: The Federal rules restrict any use of the information to criminally investigate or prosecute any alcohol or drug abuse patient.[facility]In the event this information is protected by the Federal Confidentiality of Alcohol and Drug Abuse Patient Records regulations: The Federal rules restrict any use of the information to criminally investigate or prosecute any alcohol or drug abuse patient.[facility] HospitalIn the event this information is protected by the Federal Confidentiality of Alcohol and Drug Abuse Patient Records regulations: The Federal rules restrict any use of the information to criminally investigate or prosecute any alcohol or drug abuse patient.[facility] HospitalIn the event this information is protected by the Federal Confidentiality of Alcohol and Drug Abuse Patient Records regulations: The Federal rules restrict any use of the information to criminally investigate or prosecute any alcohol or drug abuse patient.[facility] HospitalIn the event this information is protected by the Federal Confidentiality of Alcohol and Drug Abuse Patient Records regulations: The Federal rules restrict any use of the information to criminally investigate or prosecute any alcohol or drug abuse patient.[facility] HospitalIn the event this information is protected by the Federal Confidentiality of Alcohol and Drug Abuse Patient Records regulations: The Federal rules restrict any use of the information to criminally investigate or prosecute any alcohol or drug abuse patient.[facility] HospitalIn the event this information is protected by the Federal Confidentiality of Alcohol and Drug Abuse Patient Records regulations: The Federal rules restrict any use of the information to criminally investigate or prosecute any alcohol or drug abuse patient.[facility] HospitalIn the event this information is protected by the Federal Confidentiality of Alcohol and Drug Abuse Patient Records regulations: The Federal rules restrict any use of the information to criminally investigate or prosecute any alcohol or drug abuse patient.[facility] HospitalIn the event this information is protected by the Federal Confidentiality of Alcohol and Drug Abuse Patient Records regulations: The Federal rules restrict any use of the information to criminally investigate or prosecute any alcohol or drug abuse patient.[facility] HospitalIn the event this information is protected by the Federal Confidentiality of Alcohol and Drug Abuse Patient Records regulations: The Federal rules restrict any use of the information to criminally investigate or prosecute any alcohol or drug abuse patient.[facility] HospitalIn the event this information is protected by the Federal Confidentiality of Alcohol and Drug Abuse Patient Records regulations: The Federal rules restrict any use of the information to criminally investigate or prosecute any alcohol or drug abuse patient.[facility] HospitalIn the event this information is protected by the Federal Confidentiality of Alcohol and Drug Abuse Patient Records regulations: The Federal rules restrict any use of the information to criminally investigate or prosecute any alcohol or drug abuse patient.[facility] HospitalIn the event this information is protected by the Federal Confidentiality of Alcohol and Drug Abuse Patient Records regulations: The Federal rules restrict any use of the information to criminally investigate or prosecute any alcohol or drug abuse patient.[facility] HospitalIn the event this information is protected by the Federal Confidentiality of Alcohol and Drug Abuse Patient Records regulations: The Federal rules restrict any use of the information to criminally investigate or prosecute any alcohol or drug abuse patient.[facility] HospitalIn the event this information is protected by the Federal Confidentiality of Alcohol and Drug Abuse Patient Records regulations: The Federal rules restrict any use of the information to criminally investigate or prosecute any alcohol or drug abuse patient.[facility] HospitalIn the event this information is protected by the Federal Confidentiality of Alcohol and Drug Abuse Patient Records regulations: The Federal rules restrict any use of the information to criminally investigate or prosecute any alcohol or drug abuse patient.[facility] HospitalIn the event this information is protected by the Federal Confidentiality of Alcohol and Drug Abuse Patient Records regulations: The Federal rules restrict any use of the information to criminally investigate or prosecute any alcohol or drug abuse patient.[facility] HospitalIn the event this information is protected by the Federal Confidentiality of Alcohol and Drug Abuse Patient Records regulations: The Federal rules restrict any use of the information to criminally investigate or prosecute any alcohol or drug abuse patient.[facility] HospitalIn the event this information is protected by the Federal Confidentiality of Alcohol and Drug Abuse Patient Records regulations: The Federal rules restrict any use of the information to criminally investigate or prosecute any alcohol or drug abuse patient.[facility] HospitalIn the event this information is protected by the Federal Confidentiality of Alcohol and Drug Abuse Patient Records regulations: The Federal rules restrict any use of the information to criminally investigate or prosecute any alcohol or drug abuse patient.[facility] HospitalIn the event this information is protected by the Federal Confidentiality of Alcohol and Drug Abuse Patient Records regulations: The Federal rules restrict any use of the information to criminally investigate or prosecute any alcohol or drug abuse patient.[facility] HospitalIn the event this information is protected by the Federal Confidentiality of Alcohol and Drug Abuse Patient Records regulations: The Federal rules restrict any use of the information to criminally investigate or prosecute any alcohol or drug abuse patient.[facility] HospitalIn the event this information is protected by the Federal Confidentiality of Alcohol and Drug Abuse Patient Records regulations: The Federal rules restrict any use of the information to criminally investigate or prosecute any alcohol or drug abuse patient.[facility] HospitalIn the event this information is protected by the Federal Confidentiality of Alcohol and Drug Abuse Patient Records regulations: The Federal rules restrict any use of the information to criminally investigate or prosecute any alcohol or drug abuse patient.[facility] HospitalIn the event this information is protected by the Federal Confidentiality of Alcohol and Drug Abuse Patient Records regulations: The Federal rules restrict any use of the information to criminally investigate or prosecute any alcohol or drug abuse patient.[facility] HospitalIn the event this information is protected by the Federal Confidentiality of Alcohol and Drug Abuse Patient Records regulations: The Federal rules restrict any use of the information to criminally investigate or prosecute any alcohol or drug abuse patient.[facility] HospitalIn the event this information is protected by the Federal Confidentiality of Alcohol and Drug Abuse Patient Records regulations: The Federal rules restrict any use of the information to criminally investigate or prosecute any alcohol or drug abuse patient.[facility] HospitalIn the event this information is protected by the Federal Confidentiality of Alcohol and Drug Abuse Patient Records regulations: The Federal rules restrict any use of the information to criminally investigate or prosecute any alcohol or drug abuse patient.[facility] HospitalIn the event this information is protected by the Federal Confidentiality of Alcohol and Drug Abuse Patient Records regulations: The Federal rules restrict any use of the information to criminally investigate or prosecute any alcohol or drug abuse patient.[facility] HospitalIn the event this information is protected by the Federal Confidentiality of Alcohol and Drug Abuse Patient Records regulations: The Federal rules restrict any use of the information to criminally investigate or prosecute any alcohol or drug abuse patient.[facility] HospitalIn the event this information is protected by the Federal Confidentiality of Alcohol and Drug Abuse Patient Records regulations: The Federal rules restrict any use of the information to criminally investigate or prosecute any alcohol or drug abuse patient.[facility] HospitalIn the event this information is protected by the Federal Confidentiality of Alcohol and Drug Abuse Patient Records regulations: The Federal rules restrict any use of the information to criminally investigate or prosecute any alcohol or drug abuse patient.[facility] HospitalIn the event this information is protected by the Federal Confidentiality of Alcohol and Drug Abuse Patient Records regulations: The Federal rules restrict any use of the information to criminally investigate or prosecute any alcohol or drug abuse patient.[facility] HospitalIn the event this information is protected by the Federal Confidentiality of Alcohol and Drug Abuse Patient Records regulations: The Federal rules restrict any use of the information to criminally investigate or prosecute any alcohol or drug abuse patient.[facility] HospitalIn the event this information is protected by the Federal Confidentiality of Alcohol and Drug Abuse Patient Records regulations: The Federal rules restrict any use of the information to criminally investigate or prosecute any alcohol or drug abuse patient.[facility] HospitalIn the event this information is protected by the Federal Confidentiality of Alcohol and Drug Abuse Patient Records regulations: The Federal rules restrict any use of the information to criminally investigate or prosecute any alcohol or drug abuse patient.[facility] HospitalIn the event this information is protected by the Federal Confidentiality of Alcohol and Drug Abuse Patient Records regulations: The Federal rules restrict any use of the information to criminally investigate or prosecute any alcohol or drug abuse patient.[facility] HospitalIn the event this information is protected by the Federal Confidentiality of Alcohol and Drug Abuse Patient Records regulations: The Federal rules restrict any use of the information to criminally investigate or prosecute any alcohol or drug abuse patient.[facility] HospitalIn the event this information is protected by the Federal Confidentiality of Alcohol and Drug Abuse Patient Records regulations: The Federal rules restrict any use of the information to criminally investigate or prosecute any alcohol or drug abuse patient.[facility] HospitalIn the event this information is protected by the Federal Confidentiality of Alcohol and Drug Abuse Patient Records regulations: The Federal rules restrict any use of the information to criminally investigate or prosecute any alcohol or drug abuse patient.[facility] HospitalIn the event this information is protected by the Federal Confidentiality of Alcohol and Drug Abuse Patient Records regulations: The Federal rules restrict any use of the information to criminally investigate or prosecute any alcohol or drug abuse patient.[facility] HospitalIn the event this information is protected by the Federal Confidentiality of Alcohol and Drug Abuse Patient Records regulations: The Federal rules restrict any use of the information to criminally investigate or prosecute any alcohol or drug abuse patient.[facility] HospitalIn the event this information is protected by the Federal Confidentiality of Alcohol and Drug Abuse Patient Records regulations: The Federal rules restrict any use of the information to criminally investigate or prosecute any alcohol or drug abuse patient.[facility] HospitalIn the event this information is protected by the Federal Confidentiality of Alcohol and Drug Abuse Patient Records regulations: The Federal rules restrict any use of the information to criminally investigate or prosecute any alcohol or drug abuse patient.[facility] HospitalIn the event this information is protected by the Federal Confidentiality of Alcohol and Drug Abuse Patient Records regulations: The Federal rules restrict any use of the information to criminally investigate or prosecute any alcohol or drug abuse patient.[facility] HospitalIn the event this information is protected by the Federal Confidentiality of Alcohol and Drug Abuse Patient Records regulations: The Federal rules restrict any use of the information to criminally investigate or prosecute any alcohol or drug abuse patient.[facility] HospitalIn the event this information is protected by the Federal Confidentiality of Alcohol and Drug Abuse Patient Records regulations: The Federal rules restrict any use of the information to criminally investigate or prosecute any alcohol or drug abuse patient.[facility] HospitalIn the event this information is protected by the Federal Confidentiality of Alcohol and Drug Abuse Patient Records regulations: The Federal rules restrict any use of the information to criminally investigate or prosecute any alcohol or drug abuse patient.[facility] HospitalIn the event this information is protected by the Federal Confidentiality of Alcohol and Drug Abuse Patient Records regulations: The Federal rules restrict any use of the information to criminally investigate or prosecute any alcohol or drug abuse patient.[facility] HospitalIn the event this information is protected by the Federal Confidentiality of Alcohol and Drug Abuse Patient Records regulations: The Federal rules restrict any use of the information to criminally investigate or prosecute any alcohol or drug abuse patient.[facility] HospitalIn the event this information is protected by the Federal Confidentiality of Alcohol and Drug Abuse Patient Records regulations: The Federal rules restrict any use of the information to criminally investigate or prosecute any alcohol or drug abuse patient.[facility] HospitalIn the event this information is protected by the Federal Confidentiality of Alcohol and Drug Abuse Patient Records regulations: The Federal rules restrict any use of the information to criminally investigate or prosecute any alcohol or drug abuse patient.[facility] HospitalIn the event this information is protected by the Federal Confidentiality of Alcohol and Drug Abuse Patient Records regulations: The Federal rules restrict any use of the information to criminally investigate or prosecute any alcohol or drug abuse patient.[facility]In the event this information is protected by the Federal Confidentiality of Alcohol and Drug Abuse Patient Records regulations: The Federal rules restrict any use of the information to criminally investigate or prosecute any alcohol or drug abuse patient.[facility]In the event this information is protected by the Federal Confidentiality of Alcohol and Drug Abuse Patient Records regulations: The Federal rules restrict any use of the information to criminally investigate or prosecute any alcohol or drug abuse patient.[facility]In the event this information is protected by the Federal Confidentiality of Alcohol and Drug Abuse Patient Records regulations: The Federal rules restrict any use of the information to criminally investigate or prosecute any alcohol or drug abuse patient.[facility]In the event this information is protected by the Federal Confidentiality of Alcohol and Drug Abuse Patient Records regulations: The Federal rules restrict any use of the information to criminally investigate or prosecute any alcohol or drug abuse patient.[facility]In the event this information is protected by the Federal Confidentiality of Alcohol and Drug Abuse Patient Records regulations: The Federal rules restrict any use of the information to criminally investigate or prosecute any alcohol or drug abuse patient.[facility]In the event this information is protected by the Federal Confidentiality of Alcohol and Drug Abuse Patient Records regulations: The Federal rules restrict any use of the information to criminally investigate or prosecute any alcohol or drug abuse patient.[facility]In the event this information is protected by the Federal Confidentiality of Alcohol and Drug Abuse Patient Records regulations: The Federal rules restrict any use of the information to criminally investigate or prosecute any alcohol or drug abuse patient.[facility]In the event this information is protected by the Federal Confidentiality of Alcohol and Drug Abuse Patient Records regulations: The Federal rules restrict any use of the information to criminally investigate or prosecute any alcohol or drug abuse patient.[facility] HospitalIn the event this information is protected by the Federal Confidentiality of Alcohol and Drug Abuse Patient Records regulations: The Federal rules restrict any use of the information to criminally investigate or prosecute any alcohol or drug abuse patient.[facility] Reason for Visit (unrecogniz ed section and content) Reason Comments PT Discharge Specialty Diagnoses / Procedures Referred By Jenny t Referred To Contact [facility] Diagnoses Leg weakness, bilateral Procedures CONSULT TO PHYSICAL THERAPY PHYSICAL THERAPY EVALUATION HIGH COMPLEX 45 MINS Radha Batista, ADIEL.TOOL PROFILING MACHINE SET UP OPERATOR [address] [place] [address] [facility] [address] [address] Referral ID Status Reason Start Date Expiration Date Visits Requested Visits Authorized [id number] Authorized PCP Requested Referral Auto-Generate d Referral [...] swelling x1 day, visual screening with glasses 20. Reason Onset Date Comments Refill Request 08/15/2022 [...] STRESS/PHARM MYOCARDIAL SPECT MULTIPLE STUDIES Radha Batista, ADIEL.TOOL PROFILING MACHINE SET UP OPERATOR [address] [place] [address] [facility] [address] [place] [address] Referral ID Status Reason Start Date Expiration Date V isits Requested Visits Authorized [id number] Closed Auto-Generate d Referral 05/15/2023 10/12/2023 3 [...] Referred By Jenny cotter Referred To Contact [facility] Diagnoses Elevated liver enzymes Procedures US ABD RIGHT UPPER QUADRANT US ABDOMINAL REAL TIME W/IMAGE LIMITED Aleksandar Jones MD [address] [place] [address] Phone: tel: fax: [place] [phone] Referral ID Status Reason Start Date Expiration Date V isits Requested Visits Authorized [id number] Closed Auto-Generate d Referral 01/18/2025 02/03/2026 1 1 Reason Comments Forms Reason Onset Date Comments Refill Request 01/25/2025 Reason Onset Date Comments Refill Request 02/18/2025 Reason Comments Letter Reason Comments Follow Up 2 month follow up- p atient went from long term to assisted living at [facility] Reason Comments Statin Recommendation Reason Comments Cardiac Clearance Care Teams (unrecognized sec tion and content) Logistics/Shipper Relationship Specialty Start Date End Date Aleksandar Jones MD [address] [place], [place] [id number] PCP - General Family Practice 12/26/14 Koby Ramirez V [address] [place] [phone] Internal Medicine 07/22/18 Yolie Mars Other 05/30/14 Residential 12/18/17 [facility] [place] 10/25/19 Logistics/Shipper Relationship Specialty Start Date End Date Aleksandar Jones MD [address] [place], [place] [id number] PCP - General Family Practice 12/26/14 Koby Ramirez V [address] [place] [phone] Internal Medicine 07/22/18 Yolie Mars Other 05/30/14 Residential 12/18/17 [facility] 10/25/19 Logistics/Shipper Relationship Specialty Start Date End Date Aleksandar Jones MD [address] [facility] [place], [place] [id number] PCP - General Family Practice 12/26/14 Koby Ramirez V [address] [place] [address] Internal Medicine 07/22/18 Yolie Mars Other 05/30/14 Residential 12/18/17 [facility] 10/25/19 Logistics/Shipper Relationship Specialty Start Date End Date Aleksandar Jones MD [address] [facility] [place] [address] PCP - General Family Practice 12/26/14 Koby Ramirez V [address] [place] [phone] Internal Medicine 07/22/18 Yolie Mars Other 05/30/14 Residential 12/18/17 [facility] [place] [facility] 10/25/19 Logistics/Shipper Relationship Specialty Start Date End Date Aleksandar Jones MD [address] [facility] [place] [address] PCP - General Family Practice 12/26/14 Koby Ramirez V [address] [place] [address] [place] [address] Internal Medicine 07/22/18 Yolie Mars Other 05/30/14 Residential 12/18/17 [facility] 10/25/19 Logistics/Shipper Relationship Specialty Start Date End Date Aleksandar Jones MD [address] [facility] [place] [address] PCP - General Family Practice 12/26/14 Koby Ramirez V [address] [place] [address] Internal Medicine 07/22/18 Yolie Mars Other 05/30/14 Residential 12/18/17 [facility] 10/25/19 Logistics/Shipper Relationship Specialty Start Date End Date Aleksandar Jones MD [address] [facility] [place] [place] [address] PCP - General Family Practice 12/26/14 Koby Ramirez V [address] [place] [address] Internal Medicine 07/22/18 Yolie Mars Other 05/30/14 Residential 12/18/17 [facility] [place] [facility] 10/25/19 Logistics/Shipper Relationship Specialty Start Date End Date Aleksandar Jones MD [address] [facility] [place] [place] [address] PCP - General Family Medicine 12/26/14 Koby Ramirez V [address] [place] [address] Internal Medicine 07/22/18 Yolie Mars Other 05/30/14 Residential 12/18/17 [facility] 10/25/19 Logistics/Shipper Relationship Specialty Start Date End Date Aleksandar Jones MD [address] [facility] [place] [address] PCP - General Family Medicine 12/26/14 Koby Ramirez V [address] [place] [address] Internal Medicine 07/22/18 Yolie Mars Other 05/30/14 Residential 12/18/17 [facility] 10/25/19 Logistics/Shipper Relationship Specialty Start Date End Date Aleksandar Jones MD [address] [facility] [place] [address] PCP - General Family Medicine 12/26/14 Koby Ramirez V [address] [place] [address] Internal Medicine 07/22/18 Yolie Mars Other 05/30/14 Residential 12/18/17 [facility] 10/25/19 Logistics/Shipper Relationship Specialty Start Date End Date Aleksandar Jones MD [address] [facility] [place] [address] PCP - General Family Medicine 12/26/14 Koby Ramirez V [address] [place] [address] [place] [address] Internal Medicine 07/22/18 Yolie Mars Other 05/30/14 Residential 12/18/17 [facility] 10/25/19 Logistics/Shipper Relationship Specialty Start Date End Date Aleskandar Jones MD [address] [facility] [place] [address] PCP - General Family Medicine 12/26/14 Koby Ramirez V [address] [place] [address] Internal Medicine 07/22/18 Yolie Mars Other 05/30/14 Residential 12/18/17 [facility] 10/25/19 Logistics/Shipper Relationship Specialty Start Date End Date Aleksandar Jones MD [address] [facility] [place] [address] PCP - General Family Medicine 12/26/14 Koby Ramirez V [address] [place] [address] Internal Medicine 07/22/18 Yolie Mars Other 05/30/14 Residential 12/18/17 [facility] 10/25/19 Logistics/Shipper Relationship Specialty Start Date End Date Aleksandar Jones MD [address] [facility] [place] [address] PCP - General Family Medicine 12/26/14 Koby Ramirez V [address] [place] [address] Internal Medicine 07/22/18 Yolie Mars Other 05/30/14 Residential 12/18/17 [facility] 10/25/19 Logistics/Shipper Relationship Specialty Start Date End Date Aleksandar Jones MD [address] [facility], [place] [address] PCP - General Family Medicine 12/26/14 Koby Ramirez V [address] [place] [address] Internal Medicine 07/22/18 Yolie Mars Other 05/30/14 Residential 12/18/17 clark marr DME 10/25/19 Logistics/Shipper Relationship Specialty Start Date End Date Aleksandar Jones MD [address] [facility], [place] [address] PCP - General Family Medicine 12/26/14 Koby Ramirez V [address] [place] [address] Internal Medicine 07/22/18 Yolie Mars Other 05/30/14 Residential 12/18/17 clark [facility] D[facility] 10/25/19 Team Status: Active Member Role Status Dates Dr. Aleksandar Jones MD Family Provider Active Dr. Aleksandar Jones MD Primary Care Provider Active Team Status: Inactive Member Role Status Dates Dr. Aleksandar Jones MD Primary Care Provider, Family Pr [facility] Active Dr. Lorraine Springer MD Attending Provider, Referring Sydney tang Active Logistics/Shipper Relationship Specialty Start Date End Date Aleksandar Jones MD [address] [facility], [place] [id number] PCP - General Family Medicine 12/26/14 Koby Ramirez V [address] [place] [address] Internal Medicine 07/22/18 Yolie Mars Other 05/30/14 Residential 12/18/17 clark marr D[facility] 10/25/19 Logistics/Shipper Relationship Specialty Start Date End Date Aleksandar Jones MD [address] [place], [place] [id number] PCP - General Family Medicine 12/26/14 Koby Ramirez V [address] [place] [address] Internal Medicine 07/22/18 Yolie Mars Other 05/30/14 Residential 12/18/17 clark [facility] 10/25/19 Team Status: Inactive Member Role Status Dates Dr. Aleksandar Jones MD Primary Care Provider Active Dr. Koby Ramirez MD Attending Provider, Joan bryan Provider Active Logistics/Shipper Relationship Specialty Start Date End Date Aleksandar Jones MD [address] [facility] [place], [place] [id number] PCP - General Family Medicine 12/26/14 Koby Ramirez V [address] [place] [address] Internal Medicine 07/22/18 Yolie Mars Other 05/30/14 Residential 12/18/17 clark [facility] 10/25/19 Logistics/Shipper Relationship Specialty Start Date End Date Aleksandar Jones MD [address] [facility] [place], [place] [id number] PCP - General Family Medicine 12/26/14 Koby Ramirez V [address] [place] [address] Internal Medicine 07/22/18 Yolie Mars Other 05/30/14 Residential 12/18/17 [facility] 10/25/19 Logistics/Shipper Relationship Specialty Start Date End Date Aleksandar Jones MD [address] [place] [address] [place] [address] PCP - General Family Medicine 12/26/14 Koby Ramirez V [address] [place] [place] [address] Internal Medicine 07/22/18 Yolie Mars Other 05/30/14 Residential 12/18/17 [facility] 10/25/19 Logistics/Shipper Relationship Specialty Start Date End Date Aleksandar Jones MD [address] [place] [place] [address] PCP - General Family Medicine 12/26/14 Koby Ramirez V [address] [place] [address] Internal Medicine 07/22/18 Yolie Mars Other 05/30/14 Residential 12/18/17 [facility] 10/25/19 Logistics/Shipper Relationship Specialty Start Date End Date Aleksandar Jones MD [address] [place] [address] PCP - General Family Medicine 12/26/14 Koby Ramirez V [address] [place] [place] [address] Internal Medicine 07/22/18 Yolie Mars Other 05/30/14 Residential 12/18/17 clark [facility] 10/25/19 Logistics/Shipper Relationship Specialty Start Date End Date Aleksandar Jones MD [address] [facility] [place], [place] [id number] PCP - General Family Medicine 12/26/14 Koby Ramirez V [address] [place] [place] [address] Internal Medicine 07/22/18 Yolie Mars Other 05/30/14 Residential 12/18/17 clark [facility]r D[facility] 10/25/19 Logistics/Shipper Relationship Specialty Start Date End Date Aleksandar Jones MD [address] [facility] [place] [address] PCP - General Family Medicine 12/26/14 Koby Ramirez V [address] [place] [place] [address] Internal Medicine 07/22/18 Yolie Mars Other 05/30/14 Residential 12/18/17 clark [facility] D[facility] 10/25/19 Team Status: Active Member Role Status Dates Dr. Aleksandar Jones MD Primary Care Provider Active Dr. Jey Dipak , DO Emergency Provider Active Dr. Amy [...] Quesada , DO Emergency Provider Active Dr. Aym Moreno MD Admit Provider, Other Provider Active Dr. Hesham Noguera MD Attending Provider, Other Provid er Active Team Status: Inactive Member Role Status Dates Dr. Aleksandar Jones MD Primary Care Provider Active Dr. Jey Quesada , DO Emergency Provider Active Dr. Amy Moreno MD Admit Provider, Other Provider Active Dr. Hesham Noguera MD Attending Provider Active Logistics/Shipper Relationship Specialty Start Date End Date Aleksandar Jones MD [address] [place], [place] [id number] PCP - General Family Medicine 12/26/14 Koby Ramirez V [address] [place] [address] Internal Medicine 07/22/18 Yolie Mars Other 05/30/14 Residential 12/18/17 [facility] 10/25/19 Logistics/Shipper Relationship Specialty Start Date End Date Aleksandar Jones MD [address] [place] [address] PCP - General Family Medicine 12/26/14 Koby Ramirez V [address] [place] [address] Internal Medicine 07/22/18 Yolie Mars Other 05/30/14 Residential 12/18/17 clark [facility]r D[facility] 10/25/19 Logistics/Shipper Relationship Specialty Start Date End Date Aleksandar Jones MD [address] [place] [address] [place] [address] PCP - General Family Medicine 12/26/14 Koby Ramirez V [address] [place] [address] Internal Medicine 07/22/18 Yolie Mars Other 05/30/14 Residential 12/18/17 clark [facility] 10/25/19 Logistics/Shipper Relationship Specialty Start Date End Date Aleksandar Jones MD [address] [place] [address] [place] [address] PCP - General Family Medicine 12/26/14 Koby Ramirez V [address] [place] [address] Internal Medicine 07/22/18 Yolie Mars Other 05/30/14 Residential 12/18/17 [facility] 10/25/19 Logistics/Shipper Relationship Specialty Start Date End Date Aleksandar Jones MD [address] [place] [address] [place] [address] PCP - General Family Medicine 12/26/14 Koby Ramirez V [address] [place] [address] Internal Medicine 07/22/18 Yolie Mars Other 05/30/14 Residential 12/18/17 [facility] 10/25/19 Team Status: [...] MD Attending Provider, Referring P kitty Active Logistics/Shipper Relationship Specialty Start Date End Date Aleksandar Jones MD [address] [facility] [place], [place] [id number] PCP - General Family Medicine 12/26/14 Koby Ramirez V [address] [place] [address] Internal Medicine 07/22/18 Yolie Mars Other 05/30/14 Residential 12/18/17 [facility] 10/25/19 Team Status: Inactive Member Role Status Dates Dr. Aleksandar Jones MD Primary Care Provider Active Dr. Jey Quesada DO Emergency Provider Active Team Status: Inactive Member Role Status Dates Dr. Aleksandar Jones MD Primary Care Provider Active Dr. Jey Quesada DO Attending Provider, Emergency Provider Active Logistics/Shipper Relationship Specialty Start Date End Date Aleksandar Jones MD [address] [facility] [place] [id number] PCP - General Family Medicine 12/26/14 Koby Ramirez V [address] [place] [address] Internal Medicine 07/22/18 Yolie Mars Other 05/30/14 Residential 12/18/17 [facility] 10/25/19 Logistics/Shipper Relationship Specialty Start Date End Date Aleksandar Jones MD [address] [place], [place] [id number] PCP - General Family Medicine 12/26/14 Koby Ramirez V [address] [place] [address] Internal Medicine 07/22/18 Yolie Mars Other 05/30/14 Residential 12/18/17 [facility] 10/25/19 Logistics/Shipper Relationship Specialty Start Date End Date Aleksandar Jones MD [address] [place], [place] [id number] PCP - General Family Medicine 12/26/14 Koby Ramirez V [address] [place] [address] Internal Medicine 07/22/18 Yolie Mars Other 05/30/14 Residential 12/18/17 [facility] 10/25/19 Logistics/Shipper Relationship Specialty Start Date End Date Aleksandar Jones MD [address] [place] [place] [address] PCP - General Family Medicine 12/26/14 Koby Ramirez V [address] [place] [address] Internal Medicine 07/22/18 Yolie Rodriguezi Other 05/30/14 Residential 12/18/17 [facility] 10/25/19 Logistics/Shipper Relationship Specialty Start Date End Date Aleksandar Jones MD [address] [place] [address] [place] [address] PCP - General Family Medicine 12/26/14 Koby Ramirez V [address] [place] [address] Internal Medicine 07/22/18 Yolie Mars Other 05/30/14 Residential 12/18/17 [facility] 10/25/19 Logistics/Shipper Relationship Specialty Start Date End Date Aleksandar Jones MD [address] [place] [address] [place] [address] PCP - General Family Medicine 12/26/14 Koby Ramirez V [address] [place] [address] Internal Medicine 07/22/18 Yolie Mars Other 05/30/14 Residential 12/18/17 [facility] 10/25/19 Logistics/Shipper Relationship Specialty Start Date End Date Aleksandar Jones MD [address] [place] [place] [address] PCP - General Family Medicine 12/26/14 Koby Ramirez V [address] [place] [address] Internal Medicine 07/22/18 Yolie Mars Other 05/30/14 Residential 12/18/17 [facility] 10/25/19 Logistics/Shipper Relationship Specialty Start Date End Date Aleksandar Jones MD [address] [facility] [place] [address] PCP - General Family Medicine 12/26/14 Koby Ramirez V [address] [place] [address] Internal Medicine 07/22/18 Yolie Mars Other 05/30/14 Residential 12/18/17 [facility] 10/25/19 Logistics/Shipper Relationship Specialty Start Date End Date Aleksandar Jones MD [address] [facility] [place] [address] PCP - General Family Medicine 12/26/14 Koby Ramirez V [address] [place] [address] Internal Medicine 07/22/18 Yolie Mars Other 05/30/14 Residential 12/18/17 [facility] 10/25/19 Logistics/Shipper Relationship Specialty Start Date End Date Aleksandar Jones MD [address] [place] [place] [address] PCP - General Family Medicine 12/26/14 Koby Ramirez V [address] [place] [address] Internal Medicine 07/22/18 Yolie Mars Other 05/30/14 Residential 12/18/17 [facility] 10/25/19 Logistics/Shipper Relationship Specialty Start Date End Date Aleksandar Jones MD [address] [place] [address] [place] [address] PCP - General Family Medicine 12/26/14 Koby Ramirez V [address] [place] [address] Internal Medicine 07/22/18 Yolie Mars Other 05/30/14 Residential 12/18/17 [facility] 10/25/19 Logistics/Shipper Relationship Specialty Start Date End Date Aleksandar Jones MD [address] [place] [place] [address] PCP - General Family Medicine 12/26/14 Koby Ramirez V [address] [place] [address] Internal Medicine 07/22/18 Yolie Mars Other 05/30/14 Residential 12/18/17 [facility] 10/25/19 Logistics/Shipper Relationship Specialty Start Date End Date Aleksandar Jones MD [address] [place] [address] [place] [address] PCP - General Family Medicine 12/26/14 Koby Ramirez V [address] [place] [address] Internal Medicine 07/22/18 Yolie Mars Other 05/30/14 Residential 12/18/17 [facility] 10/25/19 Logistics/Shipper Relationship Specialty Start Date End Date Aleksandar Jones MD [address] [place] [place] [address] PCP - General Family Medicine 12/26/14 Koby Ramirez V [address] [place] [address] Internal Medicine 07/22/18 Yolie Mars Other 05/30/14 Residential 12/18/17 [facility] 10/25/19 Logistics/Shipper Relationship Specialty Start Date End Date Aleksandar Jones MD [address] [place] [place] [address] PCP - General Family Medicine 12/26/14 Koby Ramirez V [address] [place] [address] Internal Medicine 07/22/18 Yolie Mars Other 05/30/14 Residential 12/18/17 [facility] 10/25/19 Logistics/Shipper Relationship Specialty Start Date End Date Aleksandar Jones MD [address] [place] [address] [place] [address] PCP - General Family Medicine 12/26/14 Koby Ramirez V [address] [place] [address] Internal Medicine 07/22/18 Yolie Mars Other 05/30/14 Residential 12/18/17 corner [facility]a [facility] 10/25/19 Logistics/Shipper Relationship Specialty Start Date End Date Aleksandar Jones MD [address] [place] [address] [place] [address] PCP - General Family Medicine 12/26/14 Koby Ramirez V [address] [place] [place] [address] Internal Medicine 07/22/18 Yolie Mars Other 05/30/14 Residential 12/18/17 [facility] 10/25/19 Logistics/Shipper Relationship Specialty Start Date End Date Aleksandar Jones MD [address] [place] [address] [place] [address] PCP - General Family Medicine 12/26/14 Koby Ramirez V [address] [place] [place] [address] Internal Medicine 07/22/18 Yolie Mars Other 05/30/14 Residential 12/18/17 [facility] 10/25/19 Logistics/Shipper Relationship Specialty Start Date End Date Aleksandar Jones MD [address] [place], [place] [address] PCP - General Family Medicine 12/26/14 Koby Ramirez V [address] [place] [place] [place] [address] Internal Medicine 07/22/18 Yolie Mars Other 05/30/14 Residential 12/18/17 [facility] 10/25/19 Logistics/Shipper Relationship Specialty Start Date End Date Aleksandar Jones MD [address] [place] [address] [place] [address] PCP - General Family Medicine 12/26/14 Koby Ramirez V [address] [place] [address] Internal Medicine 07/22/18 Yolie Mars Other 05/30/14 Residential 12/18/17 [facility] 10/25/19 Logistics/Shipper Relationship Specialty Start Date End Date Aleksandar Jones MD [address] [place] [address] [place] [address] PCP - General Family Medicine 12/26/14 Koby Ramirez V [address] [place] [address] Internal Medicine 07/22/18 [place] [facility] [address] [place] [place] [address] Pharmacist Pharmacy 08/31/20 10/17/21 Yolie Mars Other 05/30/14 Residential 12/18/17 [facility] 10/25/19 Logistics/Shipper Relationship Specialty Start Date End Date Aleksandar Jones MD [address] [place] [address] [place] [address] PCP - General Family Medicine 12/26/14 Koby Ramirez V [address] [place] [address] Internal Medicine 07/22/18 [place] [facility] [address] [place] [place] [address] Pharmacist Pharmacy 08/31/20 10/17/21 Yolie Mars Other 05/30/14 Residential 12/18/17 [facility] 10/25/19 Logistics/Shipper Relationship Specialty Start Date End Date Aleksandar Jones MD [address] [place] [address] [place] [address] PCP - General Family Medicine 12/26/14 Koby Ramirez V [address] [place] [place] [address] Internal Medicine 07/22/18 Yolie Mars Other 05/30/14 Residential 12/18/17 [facility] 10/25/19 Logistics/Shipper Relationship Specialty Start Date End Date Aleksandar Jones MD [address] [place] [address] PCP - General Family Medicine 12/26/14 Koby Ramirez V [address] [place] [place] [address] Internal Medicine 07/22/18 Yolie Mars Other 05/30/14 Residential 12/18/17 [facility] 10/25/19 Logistics/Shipper Relationship Specialty Start Date End Date Aleksandar Jones MD [address] [place] [address] PCP - General Family Medicine 12/26/14 Koby Ramirez V [address] [place] [place] [address] Internal Medicine 07/22/18 Yolie Rodriguezi Other 05/30/14 Residential 12/18/17 [facility] 10/25/19 Logistics/Shipper Relationship Specialty Start Date End Date Aleksandar Jones MD [address] [place] [address] PCP - General Family Medicine 12/26/14 Koby Ramirez V [address] [place] [address] Internal Medicine 07/22/18 Radha Batista APRN.TOOL PROFILING MACHINE SET UP OPERATOR [address] [place] [address] Installer Apprentice Family Medicine 09/20/24 Shelia Salmon APRN.TOOL PROFILING MACHINE SET UP OPERATOR [address] [place] [address] [place] [address] Installer Apprentice Family Medicine 09/20/24 Yolie Mars Other 05/30/14 Residential 12/18/17 [facility] 10/25/19 Logistics/Shipper Relationship Specialty Start Date End Date Aleksandar Jones MD [address] [place] [address] [place] [address] PCP - General Family Medicine 12/26/14 Koby Ramirez V [address] [place] [address] Internal Medicine 07/22/18 Radha Batista APRN.TOOL PROFILING MACHINE SET UP OPERATOR [address] [place] [address] Installer Apprentice Family Medicine 09/20/24 Shelia Salmon, SMELLER.TOOL PROFILING MACHINE SET UP OPERATOR [address] [place] [place] [address] Installer Apprentice Family Medicine 09/20/24 Yolie Mars Other 05/30/14 Residential 12/18/17 [facility] 10/25/19 Logistics/Shipper Relationship Specialty Start Date End Date Aleksandar Jones MD [address] [place], [place] [address] PCP - General Family Medicine 12/26/14 Koby Ramirez V [address] [place] [address] Internal Medicine 07/22/18 Radha Batista APRN.TOOL PROFILING MACHINE SET UP OPERATOR [address] [place] [place] [address] Installer Apprentice Family Medicine 09/20/24 Shelia Salmon APRN.TOOL PROFILING MACHINE SET UP OPERATOR [address] [place] [address] [place] [address] Installer Apprentice Family Medicine 09/20/24 Yolie Mars Other 05/30/14 Residential 12/18/17 [facility] 10/25/19 Logistics/Shipper Relationship Specialty Start Date End Date Aleksandar Jones MD [address] [place] [address] [place] [address] PCP - General Family Medicine 12/26/14 Koby Ramirez V [address] [place] [address] Internal Medicine 07/22/18 Radha Batista APRN.TOOL PROFILING MACHINE SET UP OPERATOR [address] [place] [place] [address] Installer Apprentice Family Medicine 09/20/24 Shelia Salmon APRN.TOOL PROFILING MACHINE SET UP OPERATOR [address] [place] [address] [place] [address] Installer Apprentice Family Medicine 09/20/24 Yolie Mars Other 05/30/14 Residential 12/18/17 [facility] 10/25/19 Logistics/Shipper Relationship Specialty Start Date End Date Aleksandar Jones MD [address] [place] [address] [place] [address] PCP - General Family Medicine 12/26/14 Koby Ramirez V [address] [place] [address] Internal Medicine 07/22/18 Radha Batista APRN.TOOL PROFILING MACHINE SET UP OPERATOR [address] [place] [address] Installer Apprentice Family Medicine 09/20/24 Shelia Salmon APRN.TOOL PROFILING MACHINE SET UP OPERATOR [address] [place] [place] [address] Installer Apprentice Family Medicine 09/20/24 Yolie Mars Other 05/30/14 Residential 12/18/17 [facility] 10/25/19 Logistics/Shipper Relationship Specialty Start Date End Date Aleksandar Jones MD [address] [place] [address] [place] [address] PCP - General Family Medicine 12/26/14 Koby Ramirez V [address] [place] [place] [address] Internal Medicine 07/22/18 Radha Batista, ADIEL.TOOL PROFILING MACHINE SET UP OPERATOR [address] [place] [place] [address] Installer Apprentice Family Medicine 09/20/24 Shelia Salmon, SMELLER.TOOL PROFILING MACHINE SET UP OPERATOR [address] [place], [place] [address] Installer Apprentice Family Medicine 09/20/24 Yolie Jerad Other 05/30/14 Residential 12/18/17 [facility] 10/25/19 Logistics/Shipper Relationship Specialty Start Date End Date Aleksandar Jones MD [address] [place] [address] [place] [address] PCP - General Family Medicine 12/26/14 Koby Ramirez V [address] [place] [place] [address] Internal Medicine 07/22/18 Radha Batista SMELLER.TOOL PROFILING MACHINE SET UP OPERATOR [address] [place] [place] [address] Installer Apprentice Family Medicine 09/20/24 Shelia Salmon, SMELLER.TOOL PROFILING MACHINE SET UP OPERATOR [address] [place] [address] [place] [address] Installer Apprentice Family Medicine 09/20/24 Yolie Mars Other 05/30/14 Residential 12/18/17 [facility] 10/25/19 Logistics/Shipper Relationship Specialty Start Date End Date Aleksandar Jones MD [address] [place], [place] [address] PCP - General Family Medicine 12/26/14 Koby Ramirez V [address] [place] [address] Internal Medicine 07/22/18 Radha Batista APRN.TOOL PROFILING MACHINE SET UP OPERATOR [address] [place] [address] Installer Apprentice Family Medicine 09/20/24 Shelia Salmon APRN.TOOL PROFILING MACHINE SET UP OPERATOR [address] [place] [address] [place] [address] Installer Apprentice Family Medicine 09/20/24 Yolie Mars Other 05/30/14 Residential 12/18/17 [facility] 10/25/19 Logistics/Shipper Relationship Specialty Start Date End Date Aleksandar Jones MD [address] [facility] [place] [address] PCP - General Family Medicine 12/26/14 Koby Ramirez V [address] [place] [phone] Internal Medicine 07/22/18 Radha Batista, ADIEL.TOOL PROFILING MACHINE SET UP OPERATOR [address] [place] [address] Installer Apprentice Family Medicine 09/20/24 Shelia Salmon SMELLER.TOOL PROFILING MACHINE SET UP OPERATOR [address] [place] [address] [place] [address] Installer Apprentice Family Medicine 09/20/24 Yolie Mars Other 05/30/14 Residential 12/18/17 [facility] 10/25/19 Logistics/Shipper Relationship Specialty Start Date End Date Aleksandar Jones MD [address] [place] [place] [address] PCP - General Family Medicine 12/26/14 Koby Ramirez V [address] [place] [address] Internal Medicine 07/22/18 Radha Batista APRN.TOOL PROFILING MACHINE SET UP OPERATOR [address] [place] [place] [address] Installer Apprentice Family Medicine 09/20/24 Shelia Salmon APRN.TOOL PROFILING MACHINE SET UP OPERATOR [address] [place] [place] [address] Installer Apprentice Family Medicine 09/20/24 Yolie Mars Other 05/30/14 Residential 12/18/17 [facility] 10/25/19 Logistics/Shipper Relationship Specialty Start Date End Date Aleksandar Jones MD [address] [place] [address] [place] [address] PCP - General Family Medicine 12/26/14 Koby Ramirez V [address] [place] [address] Internal Medicine 07/22/18 Radha Batista APRN.TOOL PROFILING MACHINE SET UP OPERATOR [address] [place] [place] [address] Installer Apprentice Family [facility] 09/20/24 Shelia Salmon APRN.TOOL PROFILING MACHINE SET UP OPERATOR [address] [place] [place] [address] Installer Apprentice Family Medicine 09/20/24 Yolie Elliottarturo Other 05/30/14 Residential 12/18/17 [facility] 10/25/19 Logistics/Shipper Relationship Specialty Start Date End Date Aleksandar Jones MD [address] [place], [place] [address] PCP - General Family Medicine 12/26/14 Koby Ramirez V [address] [place] [address] Internal Medicine 07/22/18 Radha Batista, SMELLER.TOOL PROFILING MACHINE SET UP OPERATOR [address] [place] [place] [address] Installer Apprentice Family Medicine 09/20/24 Shelia Salmon SMELLER.TOOL PROFILING MACHINE SET UP OPERATOR [address] [place] [address] [place] [address] Installer Apprentice Family Medicine 09/20/24 Yolie Elliottarturo Other 05/30/14 Residential 12/18/17 [facility] 10/25/19 Logistics/Shipper Relationship Specialty Start Date End Date Aleksandar Jones MD [address] [place] [address] [place] [address] PCP - General Family Medicine 12/26/14 Koby Ramirez V [address] [place] [place] [address] Internal Medicine 07/22/18 Radha Batista, SMELLER.TOOL PROFILING MACHINE SET UP OPERATOR [address] [place] [place] [address] Installer Apprentice Family Medicine 09/20/24 Shelia Salmon APRN.TOOL PROFILING MACHINE SET UP OPERATOR [address] [place] [place] [address] Installer Apprentice Family Medicine 09/20/24 Yolie Mars Other 05/30/14 Residential 12/18/17 [facility] 10/25/19 Logistics/Shipper Relationship Specialty Start Date End Date Aleksandar Jones MD [address] [place] [place] [address] PCP - General Family Medicine 12/26/14 Koby Ramirez [place] [address] Internal Medicine 07/22/18 Radha Batista APRN.TOOL PROFILING MACHINE SET UP OPERATOR [address] [place] [address] Installer Apprentice Family Medicine 09/20/24 Shelia Salmon SMELLER.TOOL PROFILING MACHINE SET UP OPERATOR [address] [place] [address] Installer Apprentice Family Medicine 09/20/24 Yolie Mars Other 05/30/14 Residential 12/18/17 [facility] 10/25/19 Logistics/Shipper Relationship Specialty Start Date End Date Aleksandar Jones MD [address] [place] [place] [address] PCP - General Family Medicine 12/26/14 Koby Ramirez [place] [address] [place] [phone] Internal Medicine 07/22/18 Radha Batista APRN.TOOL PROFILING MACHINE SET UP OPERATOR [address] [place] [address] Installer Apprentice Family Medicine 09/20/24 Shelia Salmon APRN.TOOL PROFILING MACHINE SET UP OPERATOR [address] [place] [place] [address] Installer Apprentice Family Medicine 09/20/24 Yolie Mars Other 05/30/14 Residential 12/18/17 [facility] 10/25/19 Logistics/Shipper Relationship Specialty Start Date End Date Aleksandar Jones MD [address] [place] [address] PCP - General Family Medicine 12/26/14 Koby Ramirez V [address] [place] [phone] Internal Medicine 07/22/18 Radha Batista APRN.TOOL PROFILING MACHINE SET UP OPERATOR [address] [place] [address] Installer Apprentice Family Medicine 09/20/24 Shelia Salmon APRN.TOOL PROFILING MACHINE SET UP OPERATOR [address] [place] [address] Installer Apprentice Family Medicine 09/20/24 Yolie Mars Other 05/30/14 Residential 12/18/17 clark [facility] 10/25/19 Team Status: Active Member Role Status Dates Shelia Salmon , HARMONICA MAKER Primary Care Provider Active Team Status: Inactive Member Role Status Dates Dr. Aleksandar Jones MD Family Provider Active Sta rt: August 25, 2024 End: September 11, 2024 Dr. Lorraine Springer MD Attending Provider Active Start: August 25, 2024 End: September 11, 2024 Dr. Lorraine Springer MD Referring Provider Active Start: August 25, 2024 End: September 11, 2024 Shelia Salmon , HARMONICA MAKER Primary Care Provider Active Start: August [...] End: September 16, 2024 Shelia Salmon , HARMONICA MAKER Primary Care Provider Active Start: September [...] End: October 14, 2024 Shelia Salmon , HARMONICA MAKER Primary Care Provider Active Start: October 14, 2024 End: October 14, 2024 Team Status: Inactive Member Role Status Dates Shelia Pardoan , HARMONICA MAKER Primary Care Provider Active Start: October [...] Member Role Status Dates Shelia Salmon , HARMONICA MAKER Primary Care Provider Active Start: November [...] Member Role Status Dates Shelia Salmon , HARMONICA MAKER Primary Care Provider Active Start: November 10, 2024 Dr. Francisco Thompson , DO Emergency Provider Active Start: November 10, [...] Member Role Status Dates Shelia Salmon , HARMONICA MAKER Primary Care Provider Active Start: November [...] Member Role Status Dates Shelia Salmon , HARMONICA MAKER Primary Care Provider Active Start: November 12, 2024 Dr. Francisco Thompson , DO Emergency Provider Active Start: November 12, 2024 Dr. Hesham Amato , DO Admit Provider Active Start: November 12, 2024 Dr. Hesham Amato , DO Other Provider Active Start: November 12, 2024 Dr. Ana Lilia Lebron , DO Attending Provider Active Start: November 12, [...] End: December 10, 2024 Shelia Salmon , HARMONICA MAKER Primary Care Provider Active Start: December 08, 2024 End: December 10, 2024 Team Status: Inactive Member Role Status Dates Shelia Salmon , HARMONICA MAKER Primary Care Provider Active Start: December 21, 2024 End: December 21, 2024 Dr. Babak Garcia DO Emergency Provider Active Start: December 21, 2024 End: December 21, 2024 Team Status: Active Member Role Status Dates Dr. Aleksandar Jones MD Family Provider Active Shelia Suppan , HARMONICA MAKER Primary Care Provider Active Team Status: Inactive Member Role Status Dates Shelia Salmon , HARMONICA MAKER Primary Care Provider Active Start: December [...] End: January 04, 2025 Shelia Salmon , HARMONICA MAKER Primary Care Provider Active Start: January 04, 2025 End: January 04, 2025 Logistics/Shipper Relationship Specialty Start Date End Date Aleksandar Jones MD [address] [place] [address] PCP - General Family Medicine 12/26/14 Koby Ramirez V [address] [place] [address] Internal Medicine 07/22/18 Radha Batista, ADIEL.TOOL PROFILING MACHINE SET UP OPERATOR [address] [place] [address] Installer Apprentice Family Medicine 09/20/24 Shelia Salmon SMELLER.TOOL PROFILING MACHINE SET UP OPERATOR [address] [place] [place] [address] Installer Apprentice Family Medicine 09/20/24 Yolie Mars Other 05/30/14 Residential 12/18/17 [facility] 10/25/19 Logistics/Shipper Relationship Specialty Start Date End Date Aleksandar Jones MD [address] [place] [place] [address] PCP - General Family Medicine 12/26/14 Koby Ramirez V [address] [place] [address] Internal Medicine 07/22/18 Radha Batista APRN.TOOL PROFILING MACHINE SET UP OPERATOR [address] [place] [address] Installer Apprentice Family Medicine 09/20/24 Shelia Salmon SMELLER.TOOL PROFILING MACHINE SET UP OPERATOR [address] [place] [address] Installer Apprentice Family Medicine 09/20/24 Yolie Mars Other 05/30/14 Residential 12/18/17 [facility] 10/25/19 Logistics/Shipper Relationship Specialty Start Date End Date Aleksandar Jones MD [address] [place] [place] [address] PCP - General Family Medicine 12/26/14 Koby Ramirez V [address] [place] [address] Internal Medicine 07/22/18 Radha Batista APRN.TOOL PROFILING MACHINE SET UP OPERATOR [address] [place] [address] Installer Apprentice Family Medicine 09/20/24 Shelia Salmon APRN.TOOL PROFILING MACHINE SET UP OPERATOR [address] [place] [place] [address] Installer Apprentice Family Medicine 09/20/24 Yolie Mars Other 05/30/14 Residential 12/18/17 [facility] 10/25/19 Logistics/Shipper Relationship Specialty Start Date End Date Aleksandar Jones MD [address] [place] [place] [address] PCP - General Family Medicine 12/26/14 Koby Ramirez V [address] [place] [phone] Internal Medicine 07/22/18 Radha Batista APRN.TOOL PROFILING MACHINE SET UP OPERATOR [address] [place] [address] Installer Apprentice Family Medicine 09/20/24 Shelia Salmon APRN.TOOL PROFILING MACHINE SET UP OPERATOR [address] [place], [place] [address] Installer Apprentice Family Medicine 09/20/24 Yolie Jerad Other 05/30/14 Residential 12/18/17 [facility] 10/25/19 Logistics/Shipper Relationship Specialty Start Date End Date Aleksandar Jones MD [address] [place] [place] [address] PCP - General Family Medicine 12/26/14 Koby Ramirez V [address] [place] [phone] Internal Medicine 07/22/18 Radha Batista SMELLER.TOOL PROFILING MACHINE SET UP OPERATOR [address] [place] [address] Installer Apprentice Family Medicine 09/20/24 Shelia Salmon, SMELLER.TOOL PROFILING MACHINE SET UP OPERATOR [address] [place] [place] [address] Installer Apprentice Family Medicine 09/20/24 Yolie Mars Other 05/30/14 Residential 12/18/17 [facility] 10/25/19 Logistics/Shipper Relationship Specialty Start Date End Date Aleksandar Jones MD [address] [place], [place] [address] PCP - General Family Medicine 12/26/14 Koby Ramirez V [address] [place] [phone] Internal Medicine 07/22/18 Radha Batista, SMELLER.TOOL PROFILING MACHINE SET UP OPERATOR [address] [place] [address] Installer Apprentice Family Medicine 09/20/24 Shelia Salmon SMELLER.TOOL PROFILING MACHINE SET UP OPERATOR [address] [place] [address] [place] [address] Installer Apprentice Family Medicine 09/20/24 Yolie Mars Other 05/30/14 Residential 12/18/17 [facility] 10/25/19 Logistics/Shipper Relationship Specialty Start Date End Date Aleksandar Jones MD [address] [facility] [place] [address] PCP - General Family Medicine 12/26/14 Koby Ramirez V [address] [place] [address] Internal Medicine 07/22/18 Radha Batista, SMELLER.TOOL PROFILING MACHINE SET UP OPERATOR [address] [facility] [place] [address] [facility] Family Medicine 09/20/24 Shelia Salmon, SMELLER.TOOL PROFILING MACHINE SET UP OPERATOR [address] [place] [place] [address] Installer Apprentice Family Medicine 09/20/24 Yolie Mars Other 05/30/14 Residential 12/18/17 [facility] 10/25/19 Logistics/Shipper Relationship Specialty Start Date End Date Aleksandar Jones MD [address] [facility] [address] PCP - General Family Medicine 12/26/14 Koby Ramirez V [address] [place] [address] Internal Medicine 07/22/18 Radha Batista APRN.TOOL PROFILING MACHINE SET UP OPERATOR [address] [facility] [place] [address] Installer Apprentice Family Medicine 09/20/24 Shelia Salmon APRN.TOOL PROFILING MACHINE SET UP OPERATOR [address] [facility], [place] [address] Installer Apprentice Family Medicine 09/20/24 Yolie Mars Other 05/30/14 Residential 12/18/17 [facility] 10/25/19 Team Status: Active Member Role Status [...] March 01, 2025 End: March 01, 2025 [facility] Attending Provider Acti ve Start: March 01, 2025 End: March 01, 2025 Logistics/Shipper Relationship Specialty Start Date End Date Aleksandar Jones MD [address] [place] [address] PCP - General Family Medicine 12/26/14 Koby Ramirez V [address] [place] [phone] Internal Medicine 07/22/18 Radha Batista, SMELLER.TOOL PROFILING MACHINE SET UP OPERATOR [address] [facility] [place] [address] Installer Apprentice Family Medicine 09/20/24 Shelia Salmon APRN.TOOL PROFILING MACHINE SET UP OPERATOR [address] [place] [address] Installer Apprentice Family Medicine 09/20/24 Yolie Mars Other 05/30/14 Residential 12/18/17 [facility] 10/25/19 Logistics/Shipper Relationship Specialty Start Date End Date Aleksandar Jones MD [address] [facility] [place] [address] PCP - General Family Medicine 12/26/14 Koby Ramirez V [address] [place] [phone] Internal Medicine 07/22/18 Radha Batista, SMELLER.TOOL PROFILING MACHINE SET UP OPERATOR [address] [facility] [place] [address] Installer Apprentice Family Medicine 09/20/24 Shelia Salmon SMELLER.TOOL PROFILING MACHINE SET UP OPERATOR [address] [facility] [place] [address] Installer Apprentice Family Medicine 09/20/24 Yolie Mars Other 05/30/14 Residential 12/18/17 clark [facility] 10/25/19 Team Status: Active Member Role/Relationship Status [...] March 01, 2025 End: March 01, 2025 [facility] Attending Provider Acti ve Start: March 01, [...] Care Provider Active Start: April 26, 2025 [facility] Attending Provider Acti ve Start: April 26, [...] May 06, 2025 End: May 06, 2025 Logistics/Shipper Relationship Specialty Start Date End Date Aleksandar Jones MD [address] [place], [place] [address] PCP - General Family Medicine 12/26/14 Koby Ramirez V [address] [place] [address] Internal Medicine 07/22/18 Radha Batista APRN.TOOL PROFILING MACHINE SET UP OPERATOR [address] [place], [place] [address] Installer Apprentice Family Medicine 09/20/24 Shelia Salmon APRN.TOOL PROFILING MACHINE SET UP OPERATOR [address] [place], [place] [address] Installer Apprentice Family Medicine 09/20/24 Yolie Mars Other 05/30/14 Residential 12/18/17 [facility] 10/25/19 Team Status: Inactive Member Role/Relationship Status Dates Dr. Aleksandar Jones MD Primary Care Provider Active Start: March 01, 2025 End: March 01, 2025 [facility] Attending Provider Carol ve Start: March 01, 2025 End: March [...] Care Provider Active Start: April 26, 2025 [facility] Attending Provider Acti ve Start: April 26, [...] Care Provider Active Start: May 24, 2025 [facility] Attending Provider Acti ve Start: May 24, [...] Start: June 23, 2025 Dr. Basil Velasquez , DO Attending Provider Active Start: June 23, 2025 Dr. Basil Velasquez , DO Other Provider Active St art: June 23, 2025 Logistics/Shipper Relationship Specialty Start Date End Date Aleksandar Jones MD [address] [facility], [place] [address] PCP - General Family Medicine 12/26/14 Koby Ramirez V [address] [facility] [place] [address] Internal Medicine 07/22/18 Radha Batista APRN.TOOL PROFILING MACHINE SET UP OPERATOR [address] [facility] [place], [place] [address] Installer Apprentice Family Medicine 09/20/24 Shelia Salmon APRN.TOOL PROFILING MACHINE SET UP OPERATOR [address] [facility], [place] [address] Installer Apprentice Family Medicine 09/20/24 Yolie Mars Other 05/30/14 Residential 12/18/17 [facility] [place] 10/25/19 Team Status: Active Member Role/Relationship Status [...] care physician Active Start: April 26, 2025 [facility] Attending physician Act damian Start: April 26, [...] care physician Active Start: May 24, 2025 [facility] Attending physician Act damian Start: May 24, 2025 Team Status: Active Member Role/Relationship Status Dates Dr. Aleksandar Jones MD Primary care physician Active Start: June 21, 2025 Aleksandar MADRID Attending physician Active Star t: June 21, 2025 Team Status: Inactive Member Role/Relationship Status Dates Dr. Aleksandar Jnoes MD Primary care physician Active Start: June [...] BE BASED ON THE PRIMARY CLINICAL RECORDS. [facility] [employer] [facility]. provides no warranty or guarantee of the accuracy or completeness of information in this document.
[2025-09-13 07:58] LABS: Hematocrit 39.5 % (37-47); Hemoglobin 13.0 g/dL (12.0-15.0); Immature Granulocytes Count 0.060 X10^3/uL (0.0-0.0); Mean Corp Hgb Conc 32.9 g/dL (32-36); Mean Corpuscular Volume 88.8 fL (81-99); Mean Platelet Vol. 10.5 fl (6.2-12.0); NRBC Flagged by Analyzer 0 % (0-5); Platelet Count 241 K/mm3 (150-450); RBC Distribution Width CV 13.4 % (11.6-14.6); RBC Distribution Width SD 43.6 fl (35.1-43.9); Red Blood Count 4.45 M/mm3 (4.2-5.4); White Blood Count 10.1 K/mm3 (4.4-11.0)
== END ==
LOC: OLS.SWAL 05:00
PROVIDERS: PCP Family Medicine
DX: I10 Essential (primary) hypertension (principal); E11.9 Type 2 diabetes mellitus without complications
CPT/HCPCS: 36415; 85025

== ENCOUNTER 2025-10-07 11:44 | Emergency (ER) | payer MEDICARE, MEDICAID, SELFPAY ==
[2025-10-07] VITALS (50 sets, daily range): BP systolic 74–142; BP diastolic 30–84; PULSE 88–104; RESP 18–33; TEMP 36.2–37.1; O2SAT 89–100; BMI 35.0
--- NOTE | 2025-10-07 12:35 | RAD_ITS ---
PROCEDURE: HAND MIN 3 VIEWS 10/07/2025 REASON FOR EXAM: PAIN TECHNIQUE: Procedure Code: NEISHA Modality: DX Procedure: HAND MIN 3 VIEWS COMPARISON: None. FINDINGS: No acute bony abnormalities. The joints are aligned. No soft tissue abnormalities. RAD/Hand Min 3 Views IMPRESSION: No acute osseous abnormalities. Reading Location: [id number]
--- NOTE | 2025-10-07 12:56 | EKG12_ITS ---
Test Reason : HAND SWELLING Blood Pressure : */* mmHG Vent. Rate : 93 BPM Atrial Rate : 93 BPM P-R Int : 166 ms QRS Dur : 80 ms QT Int : 330 ms P-R-T Axes : 51 12 48 degrees QTcB Int : 410 ms Normal sinus rhythm Low voltage QRS Possible Septal infarct , age undetermined Abnormal ECG Confirmed by Lauro Jacobson ([id number]), editor index CRISTAL OTT ([id number]) on 10/11/2025 6:17:23 AM Referred By: Confirmed By: Lauro Jacobson
--- NOTE | 2025-10-07 13:17 | EX.ED.DYSGE1 ---
HPI History of Present Illness Chief Complaint: Wound Narrative Narrative: Patient is a 59-year-old female with a past medical history of insulin-dependent diabetes, GERD, LIDA, hypertension, COPD, schizophrenia, hyperlipidemia who presented to the emergency department the chief complaint of left hand redness and pain. She states that has been going on for couple days and she does not recall exactly how she hurt her hand. She states that despite trying to put gloves and ointment on this this is progressively worsened prompting her here to the emergency department to be further evaluated. Patient did note that her glucose has been running only slightly high at home. [facility] Medical History Wears glasses Wears dentures Insulin dependent diabetes mellitus Back pain Gastric reflux Former smoker BiPAP (biphasic positive airway pressure) dependence Sleep apnea Shortness of breath on exertion History of edema Hypertension Obesity (BMI 30-39.9) Hyponatremia Leukocytosis Respiratory insufficiency COPD exacerbation Pneumonia LIDA on CPAP Obesity Anxiety and depression Type 2 diabetes mellitus COPD (chronic obstructive pulmonary disease) Restless leg syndrome GERD (gastroesophageal reflux disease) COPD exacerbation Schizophrenia HTN (hypertension) Hyperlipidemia Home Medications ?Medication ?Instructions ?Recorded ?Last Taken ?Type cholecalciferol (vitamin D3) 25 1,000 unit PO DAILY SUPPLEMENT 10/17/17 06/22/25 History mcg (1,000 unit) capsule (Vitamin D3) aspirin 325 mg tablet,delayed 325 mg PO DAILY@1600 heart health 07/22/18 06/22/25 History release potassium chloride 20 mEq 20 meq PO DAILY supplement 11/16/19 06/22/25 History tablet,extended release(part/cryst) clozapine 100 mg tablet 100 mg PO 4X/DAY SCHIZOPHRENIA 07/30/21 06/22/25 History empagliflozin 10 mg tablet 10 mg PO DAILY diabetes 07/30/21 06/22/25 History (Jardiance) furosemide 20 mg tablet 20 mg PO DAILY FLUID 07/30/21 06/22/25 History insulin glargine 100 unit/mL (3 60 unit subcut QHS DM 07/30/21 06/22/25 History mL) subcutaneous pen (Lantus Solostar U-100 Insulin) metoprolol succinate 25 mg 25 mg PO QHS HTN 07/30/21 06/22/25 History tablet,extended release 24 hr clonazepam 0.5 mg tablet 0.5 mg PO BID schizophrenia 06/05/22 06/22/25 History ferrous sulfate 325 mg (65 mg 325 mg PO BID anemia 06/05/22 06/22/25 History iron) tablet (Feosol) pramipexole 0.5 mg tablet 0.5 mg PO QHS restless legs 06/05/22 06/22/25 History haloperidol 2 mg tablet 2 mg PO QHS anxiety 08/14/23 06/22/25 History metformin 500 mg tablet,extended 1,000 mg PO BID Diabetes 08/14/23 06/22/25 History release 24 hr benztropine 0.5 mg tablet 0.5 mg PO BID tremors 08/15/23 06/22/25 History peg 3350-electrolytes 236 240 ml PO Q10M PRN #4,000 mL 12/13/23 06/22/25 Rx gram-22.74 gram-6.74 gram-5.86 gram solution (Golytely) docusate sodium 100 mg capsule 100 mg PO BID 11/09/24 06/22/25 History fluticasone furoate 100 1 inh inhalation DAILY 11/09/24 06/22/25 History mcg-vilanterol 25 mcg/dose inhalation powder (Breo Ellipta) gabapentin 100 mg capsule 200 mg PO TID 11/09/24 06/22/25 History guaifenesin 600 mg tablet, 1,200 mg PO DAILY 11/09/24 06/22/25 History extended release 12 hr (Mucus Relief ER) omega-3 fatty acids-fish oil 300 1 cap PO QHS 11/09/24 06/22/25 History mg-1,000 mg capsule paliperidone palmitate 234 mg/1.5 234 mg IM QHS 11/09/24 06/22/25 History mL intramuscular syringe (Invega Sustenna) acetaminophen 325 mg tablet 325 mg PO Q4H PRN pain 06/21/25 Unknown History albuterol sulfate 2.5 mg/3 mL 2.5 mg inhalation 4X/DAY PRN PRN 06/21/25 Unknown History (0.083 %) solution for nebulization wheezing albuterol sulfate 90 mcg/actuation 2 puff inhalation Q4H PRN 06/21/25 Unknown History aerosol inhaler shortness of breath or wheezing aluminum-magnesium hydroxide 200 30 ml PO Q4H PRN dyspepsia 06/21/25 Unknown History mg-200 mg/5 mL oral suspension clonazepam 1 mg tablet 1 mg PO QHS 06/21/25 06/22/25 History insulin lispro 100 unit/mL 1 sliding scale dose subcut .CM 06/21/25 06/22/25 History subcutaneous solution (Humalog U-100 Insulin) omeprazole 20 mg capsule,delayed 20 mg PO BID 06/21/25 06/22/25 History release sucralfate 1 gram tablet (Carafate) 1 g PO BID #60 tabs 06/23/25 Unknown Rx ursodiol 250 mg tablet 250 mg PO BID #60 tabs 06/23/25 Unknown Rx nabumetone 500 mg tablet 500 mg PO BID 07/12/25 Unknown History Allergy/AdvReac Type Severity Reaction Status Date / Time No Known Allergies Allergy Verified 10/07/25 11:48 Family History Mother Heart disease Hypertension Father COPD (chronic obstructive pulmonary disease) Cancer Surgical History History of mandibular surgery History of cholecystectomy Social History housing: other details: correction. Smoking Status: Former smoker how long ago did patient quit smoking: Quit 10 years prior to 08/14/23 presentation, 2 ppd since teen until quit. alcohol intake: never substance use type: does not use ROS ROS ED ROS Narrative Constitutional: Denies any fevers, chills, headaches Eyes: Denies any double vision blurry vision Cardiovascular: Denies chest pain or palpitations Respiratory: Denies coughing wheezing shortness of breath Abdomen: Denies abdominal pain nausea vomit diarrhea : Denies urinary symptoms Neurological: Denies any numbness, tingling Musculoskeletal: Complains of left hand pain and swelling as noted above Skin: Complains of wound to the left hand as noted above EXAM Physical Exam Narrative Exam Narrative: General: Patient was lying in bed rest comfortably did not appear to be in acute distress Head: Atraumatic, normocephalic Eyes: PERRL bilaterally, EOMI bilaterally, no conjunctival injection noted Neck: Soft, supple, trachea midline Cardiovascular: Regular rate and rhythm Respiratory: Clear to auscultation bilaterally Extremities: +4/5 strength noted in the bilateral upper and lower extremities, radial pulses +2/4 in the left upper extremity Neurological: Patient following commands that she was at [facility] year is 2024 Skin: Patient has wound between her 3rd and 4th finger on the dorsal aspect with purulent drainage noted coming from the wound hand is overall very erythematous there is redness streaking up the dorsal aspect of her forearm just proximal to her elbow. She has full range of motion of her elbow joints. Const Vital Signs: 10/07/25 11:45 10/07/25 11:47 10/07/25 13:05 Temperature 98.4 F 98.4 F Temperature Source Oral Oral Pulse Rate 97 96 Respiratory Rate 18 18 Blood Pressure 130/64 H 130/64 H Blood Pressure Mean 86 86 Pulse Ox 95 95 96 Oxygen Delivery Method Room Air Room Air Room Air 10/07/25 13:27 10/07/25 13:57 Temperature 98.2 F 97.3 F L Temperature Source Oral Oral Pulse Rate 92 94 Respiratory Rate 20 H 30 H Blood Pressure 125/77 H 109/56 L Blood Pressure Mean 93 73 Pulse Ox 93 98 Oxygen Delivery Method Room Air Room Air MDM MDM MDM Narrative Medical decision making narrative: Patient is a 59-year-old female who presented to the emergency department the chief complaint of left hand pain and wound. On the differential diagnose includes but not limited to cellulitis, osteomyelitis, abscess. Once workup is obtained reviewed she will be reevaluated. Patient's CBC reviewed and showed a leukocytosis of 17,000, he was noted be 12.9, plate count of 257. Patient INR normal at 1, PT of 13.2. Patient sodium is low indicating hyponatremia at 129 however he is chronically hyponatremic, potassium normal at 4, creatinine 0.42. Patient's AST and ALT were 19 and 828 respectively. Patient's x-ray of her hand was reviewed which showed by myself and by radiology showed no acute osseous abnormalities. Patient's EKG reviewed showed sinus rhythm with a rate of 93 bpm FL interval 166 Patient was given a 30 cc/kg bolus of IV fluids at 1255. Patient was ordered vancomycin at 1315 and cefepime at 1300. Nursing notified me that the patient was hypoglycemic therefore patient was given a amp of D50 as well as placed on D5 LR as she will remain n.p.o. Given that we do not have hand surgery here and she needs IV antibiotics will plan to transfer the patient to [facility]. Discussed case with hospitalist at [facility] Dr. harrison who accept patient for transfer. Patient was notified is agreeable to this plan all course concerns answered. Lab Data Labs: Laboratory Results - last 24 hr 10/07/25 10/07/25 10/07/25 13:00 13:56 14:21 WBC 17.6 H RBC 4.43 Hgb 12.9 Hct 38.7 MCV 87.4 MCH 29.1 MCHC 33.3 RDW Std Deviation 44.5 H RDW Coeff of Tyesha 13.8 Plt Count 257 MPV 9.9 Immature Gran % (Auto) 0.500 Neut % (Auto) 78.8 H Lymph % (Auto) 13.1 L [place] % (Auto) 7.1 Eos % (Auto) 0.2 Baso % (Auto) 0.3 Absolute Neuts (auto) 13.9 H Absolute Lymphs (auto) 2.30 Nucleated RBC % 0 PT 13.2 INR 1.0 APTT 38.6 H Sodium 129 L Potassium 4.0 Chloride 93 L Carbon Dioxide 23.3 Anion Gap 12 BUN 8 Creatinine 0.42 L Estim Creat Clear Calc 138.46 Est GFR (MDRD) Non-Af 111 BUN/Creatinine Ratio 19.4 Glucose 81 Lactic Acid 1.4 Calcium 9.5 Total Bilirubin 0.39 AST 19 ALT 28 Alkaline Phosphatase 98 Total Protein 7.4 Albumin 4.3 Globulin 3.1 Albumin/Globulin Ratio 1.4 POC Glucose 81 66 L Radiography Diagnostic Testing: Clinical Impression(s) from Imaging Studies Hand X-Ray 10/07/25 12:35 IMPRESSION: No acute osseous abnormalities. Reading Location: [facility] Discharge Plan Triage Chief Complaint: Wound ED Provider: Babak Garcia Dx/Rx/DC Orders Clinical Impression: Diabetes mellitus type 2 in obese, Hypoglycemia, Cellulitis of hand, left, Schizophrenia Prescriptions: No Action nabumetone 500 mg tablet 500 mg PO BID cholecalciferol (vitamin D3) [Vitamin D3] 1,000 UNIT capsule 1,000 unit PO DAILY aspirin 325 MG tablet,delayed release (DR/EC) 325 mg PO DAILY@1600 potassium chloride 20 MEQ tablet 20 meq PO DAILY metoprolol succinate 25 mg Tablet Extended Release 24 Hr 25 mg PO QHS Jardiance 10 mg Tablet 10 mg PO DAILY furosemide 20 mg tablet 20 mg PO DAILY insulin glargine [Lantus Solostar U-100 Insulin] 100 unit/mL (3 mL) insulin pen 60 unit SUBCUT QHS clozapine 100 MG tablet 100 mg PO 4X/DAY clonazepam 0.5 mg Tablet 0.5 mg PO BID pramipexole 0.5 mg Tablet 0.5 mg PO QHS Rx Instructions: Take half table PO at bedtime ferrous sulfate [Feosol] 325 mg (65 mg iron) Tablet 325 mg PO BID metformin 500 mg tablet extended release 24 hr 1,000 mg PO BID haloperidol 2 mg tablet 2 mg PO QHS benztropine 0.5 mg tablet 0.5 mg PO BID clonazepam 1 mg tablet 1 mg PO QHS omeprazole 20 mg capsule,delayed release(DR/EC) 20 mg PO BID acetaminophen 325 mg tablet 325 mg PO Q4H PRN (Reason: pain) albuterol sulfate 2.5 mg /3 mL (0.083 %) solution for nebulization 2.5 mg inhalation 4X/DAY PRN PRN (Reason: wheezing) albuterol sulfate 90 mcg/actuation HFA aerosol inhaler 2 puff inhalation Q4H PRN (Reason: shortness of breath or wheezing) aluminum-magnesium hydroxide 200-200 mg/5 mL suspension 30 ml PO Q4H PRN (Reason: dyspepsia) insulin lispro [Humalog U-100 Insulin] 100 unit/mL solution 1 sliding scale dose subcut .CM peg 3350-electrolytes [Golytely] 236-22.74-6.74 -5.86 gram recon soln 240 ml PO Q10M PRN Qty: 4000 0RF Rx Instructions: until fecal effluent is clear docusate sodium 100 mg capsule 100 mg PO BID gabapentin 100 mg capsule 200 mg PO TID omega-3 fatty acids-fish oil 300-1,000 mg capsule 1 cap PO QHS Patient Comments: [NO ORIGINAL SIG] Invega Sustenna 234 mg/1.5 mL syringe 234 mg IM QHS fluticasone furoate-vilanterol [Breo Ellipta] 100-25 mcg/dose blister with device 1 inh INHALATION DAILY guaifenesin [Mucus Relief ER] 600 mg tablet extended release 12hr 1,200 mg PO DAILY Patient Comments: [NO ORIGINAL SIG] sucralfate [Carafate] 1 gram tablet 1 g PO BID Qty: 60 1RF ursodiol 250 mg tablet 250 mg PO BID Qty: 60 1RF Primary Care Provider: Boris Vance Referrals: Boris Vance MD [Primary Care Provider, Medical] Print Language: Lao Disposition Disposition: DC/Tx to Another Type of HCF
[2025-10-07] MEDS: 0.9% Normal Saline (1000mL) 1,000 ML 999 ML IV (13:22)
--- OUTSIDE RECORDS SUMMARY | 2025-10-07 13:26 | XMS RPT_ITS | CCD ---
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 Amy Moreno Admit Provider Dr. mAy Moreno Attending Provider Dr. Amy Moreno Other Provider Dr. Hesham Noguera Attending Provider Unavailable Dr. Hesham Noguera Other Provider Unavailable Dr. Aleksandar Jones Primary Care Provider Dr. Jey Quesada Emergency Provider Dr. Amy Moreno Admit Provider Dr. Amy Moreno Other Provider Dr. Hesham Noguera Attending Provider Unavailable Aleksandar Jones MD Primary Care Provider [facility] Clare, Kaitlyn Unavailable Haagen PLOW MECHANIC.PRINTING MECHANIST, Radha Unavailable Suppan PLOW MECHANIC.PRINTING MECHANIST, Shelia A Unavailable Suppan PLOW MECHANIC.PRINTING MECHANIST, Shelia A Unavailable [phone] Suppan PLOW MECHANIC.PRINTING MECHANIST, Shelia A Unavailable Robert SANDERS, Dr. Escalante Family Provider Racheal SANDERS, Dr. Peters Attending Provider Dr. Lorraine Springer MD Referring Provider Suppan MACHINE TOOL DESIGNER, Shelia Primary Care Provider Dr. Tae Holland [...] Dr. Lorraine Springer MD Referring Provider Suppan MACHINE TOOL DESIGNER, Shelia Primary Care Provider Dr. Babak Garcia DO Attending Provider Robert SANDERS, Dr. Escalante Family Provider Racheal SANDERS, Dr. Peters Attending Provider Racheal SANDERS, Dr. Peters Referring Provider Saud IRAHETA, Shelia Primary Care Provider [facility] Attending Provid er Unavailable Robert [...] Provider Dr. Basil Velasquez DO Other Provider [phone] RADHA BATISTA Referring Unavailable ALEKSANDAR JONES Primary Care Unavailable ROBERT, ALEKSANDAR Jeffrey Primary Care Unavailable ROBERT, ALEKSANDAR Jeffrey Referring Unavailable ALEKSANDAR JONES Attending Unavailable ROBERT, ALEKSANDAR Jeffrey Primary Care Unavailable SLEIK, KHALED MELOUD Referring Unavailable ROBERT, ALEKSANDAR Jeffrey Primary Care Unavailable SLEIK, KHALED MELOUD Attending Unavailable SLEIK, KHALED MELOUD Referring Unavailable RADHA BATISTA Attending Unavailable ROBERT, AELKSANDAR Jeffrey Primary Care Unavailable SHELIA SALMON Attending [...] SANDERS, Dr. Escalante Primary Care Physician [phone] Aleksandar Palomares [facility]ic ana paula Ramirez MD, Dr. [...] Vera Referring Unavailable Joselyn Gross Attending Unavailable Merrimac, Aleksandar Referring Unavailable Merrimac, Aleksandar Primary Care Unavailable Joselyn Gross Attending Unavailable [place], Aleksandar Referring Unavailable Merrimac, Aleksandar Primary Care Unavailable Suppan, Shelia Primary Care Unavailable Hesham Amato Consulting Unavailable Ana Lilia Lebron Attending Unavailable Hesham Amato Admitting Unavailable Ana Lilia Lebron Unavailable Suppan, Shelia Primary Care Unavailable Astreika, Vera Attending Unavailable Astreika, Vera Referring Unavailable Merrimac, Aleksandar Attending Unavailable Robert, Aleksandar Primary Care Unavailable Center, [facility] Attending Unavailable Robert, Aleksandar Primary Care Unavailable Center, [facility] Attending Unavailable Merrimac, Aleksandar Primary Care Unavailable Center, [facility] Attending Unavailable [place]imac, Aleksandar Primary Care Unavailable Friend, Basil Attending Unavailable Robert, Aleksandar Referring Unavailable Merrimac, Aleksandar Primary Care Unavailable Hesham Amato Attending Unavailable Friend, Basil Attending Unavailable Friend, Basil Consulting Unavailable [place], Aleksandar Referring Unavailable Merrimac, Aleksandar Primary Care Unavailable Suppan, Shelia Primary Care Unavailable Astreika, Vera Attending Unavailable Astreika, Vera Referring Unavailable Center, [facility] Attending Unavailable [place]im[place], Aleksandar Primary Care Unavailable Robert, Aleksandar Primary Care Unavailable Astreika, Vera Referring Unavailable Astreika, Vera Attending Unavailable Merrimac, Aleksandar Attending Unavailable Merrimac, Aleksandar Primary Care Unavailable Medications Current Medications [...] PO DAILY@1600 July 22, 2018 12:00am heart [employer] Complies with drug therapy Comment on above: [...] Comment on above: Take 1 capsule by [facility] four times daily for 5 days. cholecalciferol 0.025 mg oral capsule (20 sources) Vitamin D Start: End: take 1 capsule by mouth once daily Cholecalciferol (Vitamin D3) (Vitamin D3) 1,000 UNIT capsule Active 1000 U PO DAILY October 17, 2017 1:00am SUPPLEMENT Complies with drug therapy Comment on above: Take 1 capsule by [facility] once daily. clonazePAM 1 mg oral tablet (20 sources) Benzodiazepine Start: take 1 tablet by mouth at bedtime Clonazepam 1 mg tablet Active 1 mg PO AT BEDTIME June 21, 2025 12:00am Complies with drug therapy Start: 06-05-2022 take 1 tablet by [facility] twice daily Clonazepam 0.5 mg Tablet Active 0.5 mg PO TWICE A DAY June 05, 2022 12:00am schizophrenia Complies with drug therapy Start: 06-05-2022 take 2 tablets by [facility] twice daily Clonazepam 0.5 mg Tablet [...] Comment on above: Take 1 capsule by [facility] two times a day. empagliflozin 10 [...] take 1 puff(s) by inhalation once daily BOBLEGO ELLIPTA 100-62.5-25 mcg inhalation powder Inhale 1 [...] Comment on above: Take 1 tablet by [facility] twice daily. 12 hr guaiFENesin 600 [...] 1 capsule by mo uth once daily. [place]-3 Fatty Acids-Fish Oil (Fish Oil) 1 EACH capsule (6 sources) Start: 10-17-2017 [place]-3 Fatty Acids-Fish Oil (Fish Oil) 1 EACH capsule Active 1 EACH PO DAILY October 17, 2017 3:27pm Start: 10-17-2017 [place]-3 Fatty Acids-Fish Oil (Fish Oil) 1 EACH capsule Active 1 EACH PO DAILY October 17, 2017 1:00am [place]-3 Fatty Acids-Fish Oil 300-1,000 mg capsule (8 sources) Start: 11-09-2024 [place]-3 Fatty Acids-Fish Oil 300-1,000 mg capsule Active 1 NMA PO AT BEDTIME November 09, 2024 1:00am Complies with drug therapy Start: 11-09-2024 [place]-3 Fatty Acids-Fish Oil 300-1,000 mg capsule Active 1 NMA PO AT BEDTIME November 09, 2024 1:00am Start: 11-09-2024 [place]-3 Fatty Acids-Fish Oil 300-1,000 mg capsule Active [...] syrg injection 07/01/2022 Active polyethylene glycol 3350 72006 mg powder for oral solution (20 sources) [...] Start: 09-26-2021 End: 04-29-2023 polyethylene glycol 3350 (CT RALAX) 17 gram/dose powder Indications: Chronic constipation Take 17 .5 tsps as needed for constipation. 235 g 6 01/11/2022 04/29/2023 Discontinued (Duplicate Entry) Start: 08-24-2021 End: 02-20-2022 polyethylene glycol 3350 (CT RALAX, GLYCOLAX) 17 gram packet Take 1 [...] as needed for constipation. polyethylene glycol 3350 419273 mg / potassium chloride 2970 mg / sodium bicarbonate 6740 mg / sodium chloride 5860 mg / sodium sulfate 85689 mg powder for oral solution (11 sources) [...] until fecal effluent is clear polymyxin b 52553 unt/ml / trimethoprim 1 mg/ml ophthalmic solution [...] July 30, 2021 6:01pm Start: 07-30-2021 Psyllium ([place] mucil) Packet Active 1 PACKET PO AT BEDTIME July 29, 2021 11:00pm Start: 07-30-2021 Psyllium ([place] mucil) Packet Active 1 PACKET PO AT [...] Comment on above: Take 1 capsule by [facility] twice daily with meals. magnesium hydroxide [...] Applicator vag inally daily at bedtime. nystatin 744883 unt/ml oral suspension (3 sources) Polyene Antifungal Start: 5 End: 5 take 1 mL by mouth once Nystatin 100,000 unit/mL suspension Discontinued 1 mL PO ONCE 14 14 0 June 23, 2025 12:00am July 06, 2025 12:00am July 07, 2025 12:11am swish and swallow Fchkr-4-GOM-EPA-Fish Oil (FISH OIL) 300-1,000 mg cap (20 sources) End: 4 Gsgia-1-VNJ-EPA-Fish Oil (FISH OIL) 300-1,000 mg cap Take by mouth. 0 03/02/2024 Discontinued (Duplicate Entry) Spoyb-9-DKW-EPA- Fish Oil (FISH OIL) 300-1,000 mg cap [...] 5 Episodic Other aftercare (2 sources) Other residential (current) drug therapy; Translations: [Other residential (current) drug therapy] Onset: 5 Episodic Other [...] Anion gap [Moles/Vol] 17 mmol/L High 8-15 [facility] Comment on above: Order Comment: Speci men Type: BLOOD SPECIMENOrdering Facility: [facility] Address: [address] [place] [address] Performed By: #### 2 4321-2, 72947-0, 3016-3, 20060-3 ####[facility] LABCLIA [id number] [place] [id number] [place] Calcium [Mass/Vol] 9.6 mg/dL Normal 8.5-10.2 [facility] Comment on above: Order Comment: Speci men Type: BLOOD SPECIMENOrdering Facility: [facility] Address: [address] [place] [address] Performed By: #### 2 4321-2, 17031-5, 3016-3, 37399-5 ####[facility] LABCLIA [id number] [place] [id number] [place] Chloride [Moles/Vol] 92 mmol/L Low 98-107 [facility] Comment on above: Order Comment: Speci men Type: BLOOD SPECIMENOrdering Facility: [facility] Address: [address] [place], [place] [address] Performed By: #### 2 4321-2, 33778-3, 3016-3, 14434-2 ####[facility] LABCLIA [id number] [address] [address] [place] CO2 [Moles/Vol] 21 mmol/L Low 22-30 [facility] Comment on above: Order Comment: Speci men Type: BLOOD SPECIMENOrdering Facility: [facility] Address: [address] [place], [place] [address] Performed By: #### 2 4321-2, 50701-1, 3016-3, 72779-4 ####[facility] LABIA [id number] [address] [address] [place] Creatinine [Mass/Vol] 0.40 mg/dL Low 0.58-0.96 [facility] Comment on above: Order Comment: Speci men Type: BLOOD SPECIMENOrdering Facility: [facility] Address: [address] [place] [address] Performed By: #### 2 4321-2, , 3015-3, 93435-1 ####[facility] LABIA [id number] [place] [id number] [place] eGFRcr SerPlBld CKD-EPI 2020 113 mL/min/1.73m??? Normal >=60 [facility] Comment on above: Order Comment: Rand gonzalez Type: BLOOD SPECIMENOrdering Facility: [facility] Address: [address] [place] [address] Result Comment: Gia mated Glomerular Filtration Rate [...] Performed By: #### 2 4321-2, , 3, 33280-0 ####[facility] LABIA [id number] [address] [address] [place] Glucose [Mass/Vol] 95 mg/dL Normal 74-99 [facility] Comment on above: Order Comment: Speci men Type: BLOOD SPECIMENOrdering Facility: [facility] Address: [address] [place] [address] Result Comment: The [place] Diabetes Association (ADA) provides guidance for cutoff [...] Medical Care in Diabetes 2016, [place] Diabetes Association. Diabetes Care. 2016.39(Suppl 1). Performed By: #### 2 4321-2, 61083-0, 3016-3, 15675-9 ####[facility] LABIA [id number] [place] [id number] [place] Potassium [Moles/Vol] 4.5 mmol/L Normal 3.7-5.1 [facility] Comment on above: Order Comment: Speci men Type: BLOOD SPECIMENOrdering Facility: [facility] Address: [address] [place] [address] Performed By: #### 2 4321-2, , 6-3, 20547-8 ####[facility] [id number] [place] [id number] [place] Sodium [Moles/Vol] 130 mmol/L Low 136-144 [facility] Comment on above: Order Comment: Speci men Type: BLOOD SPECIMENOrdering Facility: [facility] Address: [address] [place] [address] Performed By: #### 2 4321-2, 05662-3, 3015-3, 02179-7 ####[facility] LABIA [id number] [place] [id number] [place] Urea nitrogen [Mass/Vol] 9 mg/dL Normal 7-21 [facility] Comment on above: Order Comment: Speci men Type: BLOOD SPECIMENOrdering Facility: [facility] Address: [address] [place] [address] Performed By: #### 2 432-2, , 6-3, 52872-3 ####[facility] LABCLIA [id number] [place] [address] [place] CBC W Auto Differential pane l (Bld)on 06-28-2025 Basophils (Bld) [#/Vol] 0.05 10*3/uL [facility] Basophils/100 WBC (Bld) 0.6 % [facility] Differential cell count method Nom (Bld) Auto [facility] Eosinophils (Bld) [#/Vol] 0.04 10*3/uL [facility] Eosinophils/100 WBC (Bld) 0.5 % [facility] Erythrocyte distribution width (RBC) [Ratio] 12.8 % 11.5 - 15.0 % [facility] Hematocrit (Bld) [Volume fraction] 42.1 % 36.0 - 46.0 % [facility] Hemoglobin (Bld) [Mass/Vol] 13.9 g/dL 11.5 - 15.5 g/dL [facility] Immature granulocytes (Bld) [#/Vol] 0.03 10*3/uL [facility] Immature granulocytes/100 WBC (Bld) 0.4 % [facility] Lymphocytes (Bld) [#/Vol] 2.04 10*3/uL [facility] Lymphocytes/100 WBC (Bld) 25.5 % [facility] MCH (RBC) [Entitic mass] 29.2 pg 26. 0 - 34.0 pg [facility] MCHC (RBC) [Mass/Vol] 33.0 g/dL 30.5 - 36.0 g/dL [facility] MCV (RBC) [Entitic vol] 88.4 fL 80.0 - 100.0 fL [facility] Monocytes (Bld) [#/Vol] 0.70 10*3/uL [facility] Monocytes/100 WBC (Bld) 8.8 % [facility] Neutrophils (Bld) [#/Vol] 5.14 10*3/uL [facility] Neutrophils/100 WBC (Bld) 64.2 % [facility] Nucleated RBC (Bld) [#/Vol] [facility] Nucleated RBC/100 WBC (Bld) [Ratio] 0.0 % /100 WBC [facility] Platelet mean volume (Bld) [Entitic vol] 12.2 fL 9.0 - 12.7 fL [facility] Platelets (Bld) [#/Vol] 192 10*3/uL [facility] Comment on above: Results checked and verified.No clot detected. RBC (Bld) [#/Vol] 4.76 10*6/uL 3.90 - 5.2 0 m/uL [facility] WBC (Bld) [#/Vol] 8.00 10*3/uL [facility] Basophils (Bld) [#/Vol] 0.05 10*3/uL Normal <0.11 [facility] Comment on above: Order Comment: Speci men Type: BLOOD SPECIMENOrdering Facility: [facility] Address: [address] [place] [address] Performed By: #### 5 7021-8 ####[facility] LABCLIA [id number] [place] [address] [place] Basophils/100 WBC (Bld) 0.6 % Normal [facility] Comment on above: Order Comment: Speci men Type: BLOOD SPECIMENOrdering Facility: [facility] Address: [address] [place] [address] Performed By: #### 5 7021-8 ####[facility] LABCLIA [id number] [place] [address] [place] Differential cell count method Nom (Bld) Auto Normal [facility] Comment on above: Order Comment: Speci men Type: BLOOD SPECIMENOrdering Facility: [facility] Address: [address] [place] [address] Performed By: #### 5 7021-8 ####[facility] LABCLIA [id number] [place] [address] [place] Eosinophils (Bld) [#/Vol] 0.04 10*3/uL Normal <0.46 [facility] Comment on above: Order Comment: Speci men Type: BLOOD SPECIMENOrdering Facility: [facility] Address: [address] [place] [address] Performed By: #### 5 7021-8 ####[facility] LABCLIA [id number] [place] [address] [place] Eosinophils/100 WBC (Bld) 0.5 % Normal [facility] Comment on above: Order Comment: Speci men Type: BLOOD SPECIMENOrdering Facility: [facility] Address: [address] [place] [address] Performed By: #### 5 7021-8 ####[facility] LABCLIA [id number] [place] [address] [place] Erythrocyte distribution width (RBC) [Ratio] 12.8 % Normal 11.5-15.0 [facility] Comment on above: Order Comment: Speci men Type: BLOOD SPECIMENOrdering Facility: [facility] Address: [address] [place] [address] Performed By: #### 5 7021-8 ####[facility] LABIA [id number] [place] [address] [place] Hematocrit (Bld) [Volume fraction] 42.1 % Normal 36.0-46.0 [facility] Comment on above: Order Comment: Speci men Type: BLOOD SPECIMENOrdering Facility: [facility] Address: [address] [place] [address] Performed By: #### 5 7021-8 ####[facility] LABCLIA [id number] [place] [address] [place] Hemoglobin (Bld) [Mass/Vol] 13.9 g/dL Normal 11.5-15.5 [facility] Comment on above: Order Comment: Speci men Type: BLOOD SPECIMENOrdering Facility: [facility] Address: [address] [place] [address] Performed By: #### 5 7021-8 ####[facility] LABIA [id number] [place] [address] [place] Immature granulocytes (Bld) [#/Vol] 0.03 10*3/uL Normal <0.10 [facility] Comment on above: Order Comment: Speci men Type: BLOOD SPECIMENOrdering Facility: [facility] Address: [address] [place] [address] Performed By: #### 5 7021-8 ####[facility] LABCLIA [id number] [place] [address] [place] Immature granulocytes/100 WBC (Bld) 0.4 % Normal [facility] Comment on above: Order Comment: Speci men Type: BLOOD SPECIMENOrdering Facility: [facility] Address: [address] [place] [address] Performed By: #### 5 7021-8 ####[facility] LABCLIA [id number] [place] [address] [place] Lymphocytes (Bld) [#/Vol] 2.04 10*3/uL Normal 1.00-4.00 [facility] Comment on above: Order Comment: Speci men Type: BLOOD SPECIMENOrdering Facility: [facility] Address: [address] [place] [address] Performed By: #### 5 7021-8 ####[facility] LABCLIA [id number] [place] [address] [place] Lymphocytes/100 WBC (Bld) 25.5 % Normal [facility] Comment on above: Order Comment: Speci men Type: BLOOD SPECIMENOrdering Facility: [facility] Address: [address] [place] [address] Performed By: #### 5 7021-8 ####[facility] LABCLIA [id number] [place] [address] [place] MCH (RBC) [Entitic mass] 29.2 pg Normal 26.0-34.0 [facility] Comment on above: Order Comment: Speci men Type: BLOOD SPECIMENOrdering Facility: [facility] Address: [address] [place] [address] Performed By: #### 5 7021-8 ####[facility] LABCLIA [id number] [place] [address] [place] MCHC (RBC) [Mass/Vol] 33.0 g/dL Normal 30.5-36.0 [facility] Comment on above: Order Comment: Speci men Type: BLOOD SPECIMENOrdering Facility: [facility] Address: [address] [place] [address] Performed By: #### 5 7021-8 ####[facility] LABCLIA [id number] [place] [address] [place] MCV (RBC) [Entitic vol] 88.4 fL Normal 80.0-100.0 [facility] Comment on above: Order Comment: Speci men Type: BLOOD SPECIMENOrdering Facility: [facility] Address: [address] [place] [address] Performed By: #### 5 7021-8 ####[facility] LABIA [id number] [place] [address] [place] Monocytes (Bld) [#/Vol] 0.70 10*3/uL Normal <0.87 [facility] Comment on above: Order Comment: Speci men Type: BLOOD SPECIMENOrdering Facility: [facility] Address: [address] [place] [address] Performed By: #### 5 7021-8 ####[facility] LABCLIA [id number] [place] [address] [place] Monocytes/100 WBC (Bld) 8.8 % Normal [facility] Comment on above: Order Comment: Speci men Type: BLOOD SPECIMENOrdering Facility: [facility] Address: [address] [place] [address] Performed By: #### 5 7021-8 ####[facility] LABCLIA [id number] [address] [address] [id number] [address] [place] Neutrophils (Bld) [#/Vol] 5.14 10*3/uL Normal 1.45-7.50 [facility] Comment on above: Order Comment: Speci men Type: BLOOD SPECIMENOrdering Facility: [facility] Address: [address] [place] [address] Performed By: #### 5 7021-8 ####[facility] LABCLIA [id number] [place] [address] [place] Neutrophils/100 WBC (Bld) 64.2 % Normal [facility] Comment on above: Order Comment: Speci men Type: BLOOD SPECIMENOrdering Facility: [facility] Address: [address] [place] [address] Performed By: #### 5 7021-8 ####[facility] LABCLIA [id number] [place] [address] [place] Nucleated RBC (Bld) [#/Vol] 10*3/uL Normal <0.01 [facility] Comment on above: Order Comment: Speci men Type: BLOOD SPECIMENOrdering Facility: [facility] Address: [address] [place] [address] Performed By: #### 5 7021-8 ####[facility] LABCLIA [id number] [place] [address] [place] Nucleated RBC/100 WBC (Bld) [Ratio] 0.0 /100 WBC Normal [facility] Comment on above: Order Comment: Speci men Type: BLOOD SPECIMENOrdering Facility: [facility] Address: [address] [place] [address] Performed By: #### 5 7021-8 ####[facility] LABCLIA [id number] [place] [address] [place] Platelet mean volume (Bld) [Entitic vol] 12.2 fL Normal 9.0-12.7 [facility] Comment on above: Order Comment: Speci men Type: BLOOD SPECIMENOrdering Facility: [facility] Address: [address] [place] [address] Performed By: #### 5 7021-8 ####[facility] LABIA [id number] [place] [address] [place] Platelets (Bld) [#/Vol] 192 10*3/uL Normal 150-400 [facility] Comment on above: Order Comment: Speci men Type: BLOOD SPECIMENOrdering Facility: [facility] Address: [address] [place] [address] Result Comment: Resu lts checked and verified.No clot detected. Performed By: #### 5 7021-8 ####[facility] LABIA [id number] [place] [address] [place] RBC (Bld) [#/Vol] 4.76 10*6/uL Normal 3.90-5.20 [facility] Comment on above: Order Comment: Speci men Type: BLOOD SPECIMENOrdering Facility: [facility] Address: [address] [place] [address] Performed By: #### 5 7021-8 ####[facility] LABIA [id number] [place] [address] [place] WBC (Bld) [#/Vol] 8.00 10*3/uL Normal 3.70-11.00 [facility] Comment on above: Order Comment: Speci men Type: BLOOD SPECIMENOrdering Facility: [facility] Address: [address] [place] [address] Performed By: #### 5 7021-8 ####[facility] LABIA [id number] [place] [address] [place] CNOVon 06-28-2025 CNOV Normal [facility] [place] (Vitamin B12) [Mas s/Vol]on 06-28-2025 Interpretation and review of laboratory results Normal [facility] HbA1c (Bld)on 06-28-2025 Average glucose Estimated from glycated hemoglobin (Bld) [Mass/Vol] 131 mg/dL [facility] Comment on above: eAG: (Estimated aver age glucose) is a calculated value from HgbA1c and is client care representative of the average blood glucose level in the last 2-3 month period. HbA1c (Bld) [Mass fraction] 6.2 % High 4.3 - 5.6 % [facility] Comment on above: [place] Diabetes As sociation guidelines indicate that patients with HgbA1c in the range 5.7-6.4% are at increased risk for development of diabetes, and intervention by lifestyle modification may be beneficial. HgbA1c greater or equal to 6.5% is considered diagnostic of diabetes. Interpretation and review of laboratory results Abnormal [facility] Average glucose Estimated from glycated hemoglobin (Bld) [Mass/Vol] 131 mg/dL Normal [facility] Comment on above: Order Comment: Rand gonzalez Type: BLOOD SPECIMENOrdering Facility: [facility] Address: [address] [place] [address] Result Comment: eAG: (Estimated average glucose) is a calculated value from HgbA1c and is client care representative of the average blood glucose level in the last 2-3 month period. Performed By: #### 5 5454-3 ####[facility] LABCLIA [id number] [place] [address] [place] HbA1c (Bld) [Mass fraction] 6.2 % High 4.3-5.6 [facility] Comment on above: Order Comment: Rand gonzalez Type: BLOOD SPECIMENOrdering Facility: [facility] Address: [address] [place] [address] Result Comment: [place] Diabetes Association guidelines indicate that patients with HgbA1c in the range 5.7-6.4% are at increased risk for development of diabetes, and intervention by lifestyle modification may be beneficial. HgbA1c greater or equal to 6.5% is considered diagnostic of diabetes. Performed By: #### 5 5454-3 ####[facility] LABCLIA [id number] [place] [id number] [place] Magnesium SerPl-mCncon 06-28 Magnesium [Mass/Vol] 2.1 mg/dL Normal 1.7-2.3 [facility] Comment on above: Order Comment: Speci men Type: BLOOD SPECIMENOrdering Facility: [facility] Address: [address] [place] [address] Performed By: #### 2 4321-2, 24556-8, 3016-3, 45061-9 ####[facility] LABCLIA [id number] [place] [address] [place] NT-proBNP SerPl-ncon 06-28 Natriuretic peptide.B prohormone N-Terminal [Mass/Vol] <36 Normal <125 [facility] Comment on above: Order Comment: Speci men Type: BLOOD SPECIMENOrdering Facility: [facility] Address: [address] [place] [address] Performed By: #### 2 4321-2, 82063-5, 6-3, 82512-7 ####[facility] LABCLIA [id number] [place] [id number] [place] TSH SerPl-aCncon 06-28-2025 TSH Qn 0.986 m[IU]/L Normal 0.270-4.200 [facility] Comment on above: Order Comment: Speci men Type: BLOOD SPECIMENOrdering Facility: [facility] Address: [address] [place] [address] Performed By: #### 2 4321-2, 28642-1, 6-3, 16718-1 ####[facility] LABIA [id number] [place] [id number] [place] VITAMIN B12on 06-28-2025 Cobalamin (Vitamin B12) [Mass/Vol] 785 pg/mL 232 - 1245 pg/mL [facility] Vit B12 SerPl-mCncon 025 Cobalamin (Vitamin B12) [Mass/Vol] 785 pg/mL Normal 232-1245 [facility] Comment on above: Order Comment: Speci men Type: BLOOD SPECIMENOrdering Facility: [facility] Address: [address] [place] [address] Performed By: #### 2 132-9 ####[facility] LABCLIA [id number] [facility] [place] [address] [place] [facility] deOrdered By: Basil Velasquez on 06-23-2025 Glucose [Mass/Vol] 119 mg/dL High 74-106 [facility] Comment on above: MANAGEMENT OF PATIEN T CARE PER NURSING PROTOCOL Absolute lymphocyte countOrd ered By: Aleksandar Jones on 06-21-2025 Lymphocytes Auto (Unsp spec) [#/Vol] 2.07 10*3/uL 0.83-4.51 [facility] Absolute neutrophil countOrd ered By: Aleksandar Jones on 06-21-2025 Neutrophils (Bld) [#/Vol] 9.0 10*3/uL High 2.0-7.7 [facility] Automated lymphocyte count a s percentage of total leukocytesOrdered By: Aleksandar Jones on 06-21-2025 Lymphocytes/100 WBC Auto (Unsp spec) 17.3 % Low 19-41 [facility] Basophil percentageOrdered B y: Aleksandar Jones on 06-21-2025 Basophils/100 WBC (Bld) 0.4 % 0-1 [facility] Eosinophil percentageOrdered By: Aleksandar Jones on 06-21-2025 Eosinophils/100 WBC (Bld) 0.3 % 0-5 [facility] Erythrocyte distribution wid th ratioOrdered By: Aleksandar Jones on 06-21-2025 Erythrocyte distribution width (RBC) [Ratio] 13.0 % 11.6-14.6 [facility] Erythrocyte distribution wid th standard deviationOrdered By: Aleksandar Jones on 06-21-2025 Erythrocyte distribution width (RBC) [Ratio] 42.5 fl 35.1-43.9 [facility] Hematocrit Auto (Bld) [Volum e fraction]Ordered By: Aleksandar Jones on 06-21-2025 Hematocrit (Bld) [Volume fraction] 39.5 % 37-47 [facility] Hemoglobin measurementOrdere d By: Aleksandar Jones on 06-21-2025 Hemoglobin (Bld) [Mass/Vol] 13.0 g/dL 12.0-15.0 [facility] Immature granulocytes/100 WB C Auto (Bld)Ordered By: Aleksandar Jones on 06-21-2025 Immature granulocytes/100 WBC (Bld) 0.500 % 0.0-0.9 [facility] Comment on above: IG% - Immature Granu locytes (promyelocytes, myelocytes and metamyelocytes) > 1% indicates that a LEFT SHIFT is Present. MCV (mean corpuscular volume ) determinationOrdered By: Aleksandar Jones on 06-21-2025 MCV (RBC) [Entitic vol] 88.8 fL 81-99 [facility] Mean corpuscular hemoglobin (MCH) determinationOrdered By: Aleksandar Jones on 06-21-2025 MCH (RBC) [Entitic mass] 29.2 pg 27.0-32.0 [facility] Mean corpuscular hemoglobin concentration (MCHC) determinationOrdered By: Aleksandar Jones on 06-21-2025 MCHC (RBC) [Mass/Vol] 32.9 g/dL 32-36 [facility] Mean platelet volume determi nationOrdered By: Aleksandar Jones on 06-21-2025 Platelet mean volume (Bld) [Entitic vol] 11.1 fL 6.2-12.0 [facility] Monocyte percentageOrdered B y: Aleksandar Jones on 06-21-2025 Monocytes/100 WBC (Bld) 6.4 % 0-10 [facility] Neutrophil percentageOrdered By: Aleksandar Jones on 06-21-2025 Neutrophils/100 WBC (Bld) 75.1 % High 47-70 [facility] Nucleated red blood cell per centageOrdered By: Aleksandar Jones on 06-21-2025 Nucleated RBC/100 WBC (Bld) [Ratio] 0 % 0-5 [facility] Platelet countOrdered By: Julio Cesar Jones on 06-21-2025 Platelets (Bld) [#/Vol] 226 10*3/uL 150-450 [facility] RBC Auto (Bld) [#/Vol]Ordere d By: Aleksandar Jones on 06-21-2025 RBC (Bld) [#/Vol] 4.45 10*6/uL 4.2-5.4 [facility] White blood cell (WBC) count Ordered By: Aleksandar Jones on 06-21-2025 WBC (Bld) [#/Vol] 11.9 10*3/uL High 4.4-11.0 [facility] CNPNon 06-03-2025 CNPN Normal [facility] Absolute lymphocyte countOrd ered By: [facility] on 05-24-2025 Lymphocytes Auto (Unsp spec) [#/Vol] 1.84 10*3/uL 0.83-4.51 [facility] Absolute neutrophil countOrd ered By: [facility] on 05-24-2025 Neutrophils (Bld) [#/Vol] 5.3 10*3/uL 2.0-7.7 [facility] Automated lymphocyte count a s percentage of total leukocytesOrdered By: [facility] on 05-24-2025 Lymphocytes/100 WBC Auto (Unsp spec) 22.7 % 19-41 [facility] Basophil percentageOrdered B y: [facility] on 05-24-2025 Basophils/100 WBC (Bld) 0.5 % 0-1 [facility] Eosinophil percentageOrdered By: [facility] on 05-24-2025 Eosinophils/100 WBC (Bld) 0.5 % 0-5 [facility] Erythrocyte distribution wid th ratioOrdered By: [facility] on 05-24-2025 Erythrocyte distribution width (RBC) [Ratio] 13.3 % 11.6-14.6 [facility] Erythrocyte distribution wid th standard deviationOrdered By: [facility] on 05-24-2025 Erythrocyte distribution width (RBC) [Ratio] 43.7 fl 35.1-43.9 [facility] Hematocrit Auto (Bld) [Volum e fraction]Ordered By: [facility] on 05-24-2025 Hematocrit (Bld) [Volume fraction] 39.5 % 37-47 [facility] Hemoglobin measurementOrdere d By: [facility] on 05-24-2025 Hemoglobin (Bld) [Mass/Vol] 13.3 g/dL 12.0-15.0 [facility] Immature granulocytes/100 WB C Auto (Bld)Ordered By: [facility] on 05-24-2025 Immature granulocytes/100 WBC (Bld) 0.900 % 0.0-0.9 [facility] Comment on above: IG% - Immature Granu locytes (promyelocytes, myelocytes and metamyelocytes) > 1% indicates that a LEFT SHIFT is Present. MCV (mean corpuscular volume ) determinationOrdered By: [facility] on 05-24-2025 MCV (RBC) [Entitic vol] 89.4 fL 81-99 [facility] Mean corpuscular hemoglobin (MCH) determinationOrdered By: [facility] on 05-24-2025 MCH (RBC) [Entitic mass] 30.1 pg 27.0-32.0 [facility] Mean corpuscular hemoglobin concentration (MCHC) determinationOrdered By: [facility] on 05-24-2025 MCHC (RBC) [Mass/Vol] 33.7 g/dL 32-36 [facility] Mean platelet volume determi nationOrdered By: [facility] on 05-24-2025 Platelet mean volume (Bld) [Entitic vol] 10.1 fL 6.2-12.0 [facility] Monocyte percentageOrdered B y: [facility] on 05-24-2025 Monocytes/100 WBC (Bld) 9.4 % 0-10 [facility] Neutrophil percentageOrdered By: [facility] on 05-24-2025 Neutrophils/100 WBC (Bld) 66.0 % 47-70 [facility] Nucleated red blood cell per centageOrdered By: [facility] on 05-24-2025 Nucleated RBC/100 WBC (Bld) [Ratio] 0 % 0-5 [facility] Platelet countOrdered By: [facility] on 05-24-2025 Platelets (Bld) [#/Vol] 220 10*3/uL 150-450 [facility] RBC Auto (Bld) [#/Vol]Ordere d By: [facility] on 05-24-2025 RBC (Bld) [#/Vol] 4.42 10*6/uL 4.2-5.4 [facility] White blood cell (WBC) count Ordered By: [facility] on 05-24-2025 WBC (Bld) [#/Vol] 8.1 10*3/uL 4.4-11.0 [facility] CNPNon 05-19-2025 [facility]NPN [facility]N Normal [facility] Absolute lymphocyte countOrd ered By: [facility] on 04-26-2025 Lymphocytes Auto (Unsp spec) [#/Vol] 1.96 10*3/uL 0.83-4.51 [facility] Absolute neutrophil countOrd ered By: [facility] on 04-26-2025 Neutrophils (Bld) [#/Vol] 8.8 10*3/uL High 2.0-7.7 [facility] Automated lymphocyte count a s percentage of total leukocytesOrdered By: [facility] on 04-26-2025 Lymphocytes/100 WBC Auto (Unsp spec) 16.7 % Low 19-41 [facility] Basophil percentageOrdered B y: [facility] on 04-26-2025 Basophils/100 WBC (Bld) 0.4 % 0-1 [facility] Eosinophil percentageOrdered By: [facility] on 04-26-2025 Eosinophils/100 WBC (Bld) 0.3 % 0-5 [facility] Erythrocyte distribution wid th ratioOrdered By: [facility] on 04-26-2025 Erythrocyte distribution width (RBC) [Ratio] 13.9 % 11.6-14.6 [facility] Erythrocyte distribution wid th standard deviationOrdered By: [facility] on 04-26-2025 Erythrocyte distribution width (RBC) [Ratio] 44.7 fl High 35.1-43.9 [facility] Hematocrit Auto (Bld) [Volum e fraction]Ordered By: [facility] on 04-26-2025 Hematocrit (Bld) [Volume fraction] 37.6 % 37-47 [facility] Hemoglobin measurementOrdere d By: [facility] on 04-26-2025 Hemoglobin (Bld) [Mass/Vol] 12.6 g/dL 12.0-15.0 [facility] Immature granulocytes/100 WB C Auto (Bld)Ordered By: [facility] on 04-26-2025 Immature granulocytes/100 WBC (Bld) 0.500 % 0.0-0.9 [facility] Comment on above: IG% - Immature Granu locytes (promyelocytes, myelocytes and metamyelocytes) > 1% indicates that a LEFT SHIFT is Present. MCV (mean corpuscular volume ) determinationOrdered By: [facility] on 04-26-2025 MCV (RBC) [Entitic vol] 88.1 fL 81-99 [facility] Mean corpuscular hemoglobin (MCH) determinationOrdered By: [facility] on 04-26-2025 MCH (RBC) [Entitic mass] 29.5 pg 27.0-32.0 [facility] Mean corpuscular hemoglobin concentration (MCHC) determinationOrdered By: [facility] on 04-26-2025 MCHC (RBC) [Mass/Vol] 33.5 g/dL 32-36 [facility] Mean platelet volume determi nationOrdered By: [facility] on 04-26-2025 Platelet mean volume (Bld) [Entitic vol] 10.9 fL 6.2-12.0 [facility] Monocyte percentageOrdered B y: [facility] on 04-26-2025 Monocytes/100 WBC (Bld) 7.3 % 0-10 [facility] Neutrophil percentageOrdered By: [facility] on 04-26-2025 Neutrophils/100 WBC (Bld) 74.8 % High 47-70 [facility] Nucleated red blood cell per centageOrdered By: [facility] on 04-26-2025 Nucleated RBC/100 WBC (Bld) [Ratio] 0 % 0-5 [facility] Platelet countOrdered By: [facility] on 04-26-2025 Platelets (Bld) [#/Vol] 193 10*3/uL 150-450 [facility] RBC Auto (Bld) [#/Vol]Ordere d By: [facility] on 04-26-2025 RBC (Bld) [#/Vol] 4.27 10*6/uL 4.2-5.4 [facility] White blood cell (WBC) count Ordered By: [facility] on 04-26-2025 WBC (Bld) [#/Vol] 11.7 10*3/uL High 4.4-11.0 [facility] Anion gap in Serum or Plasma Ordered By: Aleksandar Jones on 04-11-2025 Anion gap [Moles/Vol] 12 mmol/L -15 [facility] BUN/creatinine ratioOrdered By: Aleksandar Jones on 04-11-2025 Urea nitrogen/Creatinine [Mass ratio] 19.6 mg/mg 10-20 [facility] Carbon dioxide, total [Moles /volume] in Central venous bloodOrdered By: Aleksandar Jones on 04-11-2025 CO2 [Moles/Vol] 25.0 mmol/L 21.0-32.0 [facility] Chloride assayOrdered By: Julio Cesar Jones on 04-11-2025 Chloride [Moles/Vol] 92 mmol/L Low 98-108 [facility] Glomerular filtration rate ( GFR) estimation/1.73 sq m using serum, plasma, or whole bOrdered By: Aleksandar Jones on 04-11-2025 GFR/1.73 sq M.predicted among non-blacks MDRD (S/P/Bld) [Vol rate/Area] 104 mL/min/{1.73_m2} >60 [facility] Comment on above: mL/min/1.73m2 CKD-EP I Creatinine Equation (2020) Potassium measurement (mass/ volume)Ordered By: Aleksandar Jones on 04-11-2025 Potassium (Unsp spec) [Mass/Vol] 4.4 mmol/L 3.3-5.1 [facility] Serum creatinine measurement (mass/volume)Ordered By: Aleksandar Jones on 04-11-2025 Creatinine [Mass/Vol] 0.56 mg/dL Low 0.70-1.20 [facility] Serum glucose measurement (m ass/volume)Ordered By: Aleksandar Jones on 04-11-2025 Glucose [Mass/Vol] 88 mg/dL 70-99 [facility] Serum or plasma calcium lawrence urement (mass/volume)Ordered By: Aleksandar Jones on 04-11-2025 Calcium [Mass/Vol] 9.7 mg/dL 7.6-11.0 [facility] Serum or plasma urea nitroge n measurement (mass/volume)Ordered By: Aleksandar Jones on 04-11-2025 Urea nitrogen [Mass/Vol] 11 mg/dL -19 [facility] Sodium levelOrdered By: Jeancarlos Jones on 04-11-2025 Sodium [Moles/Vol] 129 mmol/L Low 133-145 [facility] CNOVon 04-04-2025 CNOV Normal [facility] Urine Cultureon 03-31-2025 [facility] Mixed Gram Positive Organisms [place] Count 11,000-25,000 MIXC Mixed contaminants. Submit a new specimen if indicated. Normal [facility] Comment on above: Performed By: #### L 500.4050, L501.4020, L501.2450, L100.0500 #### [facility] [address] [place], [place], [address] Bilirub Conj SerPl-mCncon Bilirubin.conjugated [Mass/Vol] 0.2 mg/dL Normal <0.3 [facility] Comment on above: Order Comment: Speci men Type: BLOOD SPECIMENOrdering Facility: [facility] Address: [address] [place] [address] Performed By: #### 3 3762-6, 71080-7, 83012-2 ####[facility] LABCLIA [id number] [place] [address] [place] CBC W/Diff, Automatedon 03-13 Absolute Neut 5.8 X10 3/uL Normal 2.0-7.7 [facility] Comment on above: Order Comment: 135 Performed By: #### L 500.4050, L501.4020, L501.2450, L100.0500 #### [facility] [address] [place], [address] CNOVon 03-29-2025 CNOV Normal [facility] Comprehensive metabolic 2000 panelon 03-29-2025 Albumin [Mass/Vol] 4.5 g/dL Normal 3.9-4.9 [facility] Comment on above: Order Comment: Speci men Type: BLOOD SPECIMENOrdering Facility: [facility] Address: [address] [place] [address] Performed By: #### 3 3762-6, 99883-0, 32850-6 ####[facility] LABCLIA [id number] [place] [address] [place] ALP [Catalytic activity/Vol] 119 U/L Normal 34-123 [facility] Comment on above: Order Comment: Speci men Type: BLOOD SPECIMENOrdering Facility: [facility] Address: [address] [place] [address] Performed By: #### 3 3762-6, 81593-0, 99346-5 ####[facility] LABCLIA [id number] [facility] [place] [id number] [place] ALT [Catalytic activity/Vol] 35 U/L Normal 7-38 [facility] Comment on above: Order Comment: Speci men Type: BLOOD SPECIMENOrdering Facility: [facility] Address: [address] [place] [address] Performed By: #### 3 3762-6, 02262-0, 28272-8 ####[facility] LABCLIA [id number] [place] [address] [place] Anion gap [Moles/Vol] 13 mmol/L Normal 8-15 [facility] Comment on above: Order Comment: Speci men Type: BLOOD SPECIMENOrdering Facility: [facility] Address: [address] [place] [address] Performed By: #### 3 3762-6, 89160-7, 24404-5 ####[facility] LABCLIA [id number] [place] [id number] [place] AST [Catalytic activity/Vol] 21 U/L Normal 13-35 [facility] Comment on above: Order Comment: Speci men Type: BLOOD SPECIMENOrdering Facility: [facility] Address: [address] [place] [address] Performed By: #### 3 3762-6, 72621-9, 31452-0 ####[facility] LABCLIA [id number] [address] [address] [place] Bilirubin [Mass/Vol] 0.4 mg/dL Normal 0.2-1.3 [facility] Comment on above: Order Comment: Speci men Type: BLOOD SPECIMENOrdering Facility: [facility] Address: [address] [place], [place] [address] Performed By: #### 3 3762-6, 46872-3, 35600-4 ####[facility] LABCLIA [id number] [address] [address] [place] Calcium [Mass/Vol] 9.6 mg/dL Normal 8.5-10.2 [facility] Comment on above: Order Comment: Speci men Type: BLOOD SPECIMENOrdering Facility: [facility] Address: [address] [place], [place] [address] Performed By: #### 3 3762-6, 14293-1, 41597-1 ####[facility] LABCLIA [id number] [place] [id number] [place] Chloride [Moles/Vol] 95 mmol/L Low 98-107 [facility] Comment on above: Order Comment: Speci men Type: BLOOD SPECIMENOrdering Facility: [facility] Address: [address] [place], [place] [address] Performed By: #### 3 3762-6, 73074-9, 41178-6 ####[facility] LABCLIA [id number] [place] [id number] [place] CO2 [Moles/Vol] 23 mmol/L Normal 22-30 [facility] Comment on above: Order Comment: Speci men Type: BLOOD SPECIMENOrdering Facility: [facility] Address: [address] [place], [place] [address] Performed By: #### 3 3762-6, 53944-7, 13759-5 ####[facility] LABCLIA [id number] [address] [address] [place] Creatinine [Mass/Vol] 0.51 mg/dL Low 0.58-0.96 [facility] Comment on above: Order Comment: Speci men Type: BLOOD SPECIMENOrdering Facility: [facility] Address: [address] [place] [address] Performed By: #### 3 3762-6, 46235-2, 38148-2 ####[facility] LABIA [id number] [place] [address] [place] Creatinine and Glomerular filtration rate.predicted panel (S/P/Bld) 106 mL/min/1.73m??? Normal >=60 [facility] Comment on above: Order Comment: Rand gonzalez Type: BLOOD SPECIMENOrdering Facility: [facility] Address: [address] [place] [address] Result Comment: Gia mated Glomerular Filtration Rate [...] actual GFR. Performed By: #### 3 3762-6, 86259-2, 62778-8 ####[facility] LABIA [id number] [place] [id number] [place] Glucose [Mass/Vol] 182 mg/dL High 74-99 [facility] Comment on above: Order Comment: Rand gonzalez Type: BLOOD SPECIMENOrdering Facility: [facility] Address: [address] [place] [address] Result Comment: The [place] Diabetes Association (ADA) provides guidance for cutoff [...] Medical Care in Diabetes 2016, [place] Diabetes Association. Diabetes Care. 2016.39(Suppl 1). Performed By: #### 3 3762-6, 39735-3, 35609-4 ####[facility] LABCLIA [id number] [address] [address] [place] Potassium [Moles/Vol] 4.4 mmol/L Normal 3.7-5.1 [facility] Comment on above: Order Comment: Speci men Type: BLOOD SPECIMENOrdering Facility: [facility] Address: [address] [place] [address] Performed By: #### 3 3762-6, 04890-1, 07167-2 ####[facility] LABIA [id number] [address] [address] [place] Protein [Mass/Vol] 7.8 g/dL Normal 6.3-8.0 [facility] Comment on above: Order Comment: Speci men Type: BLOOD SPECIMENOrdering Facility: [facility] Address: [address] [place] [address] Performed By: #### 3 3762-6, 73766-0, 42631-2 ####[facility] LABIA [id number] [address] [address] [place] Sodium [Moles/Vol] 131 mmol/L Low 136-144 [facility] Comment on above: Order Comment: Speci men Type: BLOOD SPECIMENOrdering Facility: [facility] Address: [address] [place], [place] [address] Performed By: #### 3 3762-6, 56835-8, 37630-0 ####[facility] LABIA [id number] [address] [address] [place] Urea nitrogen [Mass/Vol] 10 mg/dL Normal 7-21 [facility] Comment on above: Order Comment: Speci men Type: BLOOD SPECIMENOrdering Facility: [facility] Address: [address] [place], [place] [address] Performed By: #### 3 3762-6, 12287-3, 20156-9 ####[facility] LABCLIA [id number] [address] [address] [place] HBV DNA Qn (S)on 03-29-2025 HBV DNA LUIS M+probe Ql Not detected Normal Not detected [facility] Comment on above: Order Comment: Speci men Type: BLOOD SPECIMENOrdering Facility: [facility] Address: [address] [place] [address] Performed By: #### 1 1258-1 ####[facility] LABCLIA [id number] [address] [place] [address] [place] HBV core Ab Ser Qlon 025 HBV core Ab Ql (S) Negative Normal Negative [facility] Comment on above: Order Comment: Rand gonzalez Type: BLOOD SPECIMENOrdering Facility: [facility] Address: [address] [place] [address] Result Comment: No e vidence of current or past infection with Hepatitis B virus. Should recent infection be suspected, repeat testing may be considered 3-4 weeks after this draw. Performed By: #### 2 2322-2, 5-3, 47732-4, 70862-2 ####[facility] LABCLIA [id number] [address] [place] [address] [place] HBV core IgM Ser Qlon 2024 HBV core IgM Ql (S) Positive Abnormal Negative [facility] Comment on above: Order Comment: Speci [facility] Type: BLOOD SPECIMENOrdering Facility: [facility] Address: [address] [place] [address] Result Comment: The result suggests recent acute infection with Hepatitis B virus. Non-specific reactivity is not uncommon with this test. HBV core IgM antibody may also remain elevated for extended periods after an acute bout of infection. Clinical correlation required. Performed By: #### 2 2322-2, 5195-3, 79513-2, 79250-8 ####[facility] LABCLIA [id number] [address] [place] [address] [place] HBV surface Ab Ql (S)on 03-13 HBV surface Ab Qn (S) <8.00 Normal [facility] Comment on above: Order Comment: Speci men Type: BLOOD SPECIMENOrdering Facility: [facility] Address: [address] [place] [address] Result Comment: <8 m IU/mL: No serological evidence of immunity to Hepatitis B Virus.>/= 8 to <12 mIU/mL: No serological evidence of immunity to Hepatitis B Virus.>/= 12 mIU/mL: Consistent with serological evidence of immunity to Hepatitis B Virus. Performed By: #### 2 2322-2, 5195-3, 21146-9, 63310-6 ####[facility] LABCLIA [id number] [address] [place] HBV surface Ab Ser Qlon 03-13 HBV surface Ab Ql (S) Negative Normal [facility] Comment on above: Order Comment: Speci men Type: BLOOD SPECIMENOrdering Facility: [facility] Address: [address] [place] [address] Result Comment: No s erological evidence of immunity to Hepatitis B Virus. Performed By: #### 2 2322-2, 5195-3, 37108-0, 83047-9 ####[facility] LABCLIA [id number] [place] [address] [place] HBV surface Ag Ser Qlon 03-13 HBV surface Ag Ql (S) Negative Normal Negative [facility] Comment on above: Order Comment: Speci men Type: BLOOD SPECIMENOrdering Facility: [facility] Address: [address] [place] [address] Performed By: #### 2 2322-2, 5195-3, 93559-3, 50832-3 ####[facility] LABCLIA [id number] [place] [address] [place] HbA1c (Bld)on 03-29-2025 Average glucose Estimated from glycated hemoglobin (Bld) [Mass/Vol] 140 mg/dL [facility] Comment on above: eAG: (Estimated aver age glucose) is a calculated value from HgbA1c and is client care representative of the average blood glucose level in the last 2-3 month period. HbA1c (Bld) [Mass fraction] 6.5 % High 4.3 - 5.6 % [facility] Comment on above: Citizen Of [place] Diabetes As sociation guidelines indicate that patients with HgbA1c in the range 5.7-6.4% are at increased risk for development of diabetes, and intervention by lifestyle modification may be beneficial. HgbA1c greater or equal to 6.5% is considered diagnostic of diabetes. Interpretation and review of laboratory results Abnormal [facility] Average glucose Estimated from glycated hemoglobin (Bld) [Mass/Vol] 140 mg/dL Normal [facility] Comment on above: Order Comment: Rand gonzalez Type: BLOOD SPECIMENOrdering Facility: [facility] Address: [address] [place] [address] Result Comment: eAG: (Estimated average glucose) is a calculated value from HgbA1c and is client care representative of the average blood glucose level in the last 2-3 month period. Performed By: #### 5 5454-3 ####[facility] LABCLIA [id number] [place] [address] [place] HbA1c (Bld) [Mass fraction] 6.5 % High 4.3-5.6 [facility] Comment on above: Order Comment: Rand gonzalez Type: BLOOD SPECIMENOrdering Facility: [facility] Address: [address] [place] [address] Result Comment: [place] Diabetes Association guidelines indicate that patients with HgbA1c in the range 5.7-6.4% are at increased risk for development of diabetes, and intervention by lifestyle modification may be beneficial. HgbA1c greater or equal to 6.5% is considered diagnostic of diabetes. Performed By: #### 5 5454-3 ####[facility] LABCLIA [id number] [place] [address] [place] NT PRO BNPon 03-29-2025 Natriuretic peptide.B prohormone N-Terminal [Mass/Vol] pg/mL [facility] - 125 pg/mL [facility] NT-proBNP [facility] Natriuretic peptide.B prohormone N-Terminal [Mass/Vol] <36 Normal <125 [facility] Comment on above: Order Comment: Speci men Type: BLOOD SPECIMENOrdering Facility: [facility] Address: [address] [place] [address] Performed By: #### 3 3762-6, 42222-5, 31978-2 ####[facility] LABCLIA [id number] [place] [address] [place] Natriuretic peptide.B prohor shade N-Terminal [Mass/Vol]on 03-29-2025 Interpretation and review of laboratory results Normal [facility] Urinalysis, Completeon 03-29 EPI,TRANSITION 0-5 SEEN Normal 0-5 [facility] Comment on above: Order Comment: CLEAN CATCH Performed By: #### L 500.4050, L501.4020, L501.2450, L100.0500 #### [facility] [address] [place], [address] BACTERIA 0 SEEN Normal None Seen [facility] Comment on above: Order Comment: CLEAN CATCH Performed By: #### L 500.4050, L501.4020, L501.2450, L100.0500 #### [facility] [address] [place], [address] EPI,SQUAMOUS 0 SEEN Normal 5-10 [facility] Comment on above: Order Comment: CLEAN CATCH Performed By: #### L 500.4050, L501.4020, L501.2450, L100.0500 #### [facility] [address] [place], [address] Mucus Ql (Urine sed) 0 SEEN Normal [facility] Comment on above: Order Comment: CLEAN CATCH Performed By: #### L 500.4050, L501.4020, L501.2450, L100.0500 #### [facility] [address] [place], [address] RBC 0 SEEN Normal 0-5 [facility] Comment on above: Order Comment: CLEAN CATCH Performed By: #### L 500.4050, L501.4020, L501.2450, L100.0500 #### [facility] [address] [place], [address] WBC 0 SEEN Normal 0-5 [facility] Comment on above: Order Comment: CLEAN CATCH Performed By: #### L 500.4050, L501.4020, L501.2450, L100.0500 #### [facility] [address] [place], [address] XR CHEST 2V FRONTAL/LATon XR CHEST 2V FRONTAL/LAT Normal [facility] XR Chest PA and Lateralon IMPRESSION: No developing abnormality or acute process Recruiter Specialist: MILDRED Transcribe Date/Time: Mar 29 2025 2:38P Dictated by : EUSEBIA MARIN MD This examination was interpreted and the report reviewed and electronically signed by: EUSEBIA MARIN MD on Mar 29 2025 2:39PM [facility] DIVISION OF RADIOLOGY * * *Final Report* [...] soft tissues: Unremarkable. DIVISION OF RADIOLOGY Provider, [facility] - 03/29/2025 * * *Final Report* [...] IMPRESSION: No developing abnormality or acute process Recruiter Specialist: MILDRED Transcribe Date/Time: Mar 29 2025 2:38P Dictated by : EUSEBIA MARIN MD This examination was interpreted and the report reviewed and electronically signed by: EUSEBIA MARIN MD on Mar 29 2025 2:39PM [facility] Radiology Study observation (narrative) Pola etienne [facility] XR Chest PA and LateralOrder ed By: [facility] Provider on 03-29-2025 [facility] Absolute neutrophil countOrd ered By: Aleksandar Jones on 03-28-2025 Neutrophils (Bld) [#/Vol] 5.8 10*3/uL 2.0-7.7 [facility] Anion gap in Serum or Plasma Ordered By: Aleksandar Jones on 03-28-2025 Anion gap [Moles/Vol] 13 mmol/L 02-24 [facility] BUN/creatinine ratioOrdered By: Aleksandar Jones on 03-28-2025 Urea nitrogen/Creatinine [Mass ratio] 29.2 mg/mg High 08-01 [facility] Basic Metabolic Profile (BMP )on 03-28-2025 BUN/CRE 29.2 RATIO High 08-01 [facility] Comment on above: Order Comment: 135 Performed By: #### L 500.4050, L501.4020, L501.2450, L100.0500 #### [facility] [place] [address], [address] Calcium [Mass/Vol] 9.2 mg/dL Normal 7.6-11.0 [facility] Comment on above: Order Comment: 135 Performed By: #### L 500.4050, L501.4020, L501.2450, L100.0500 #### [facility] [address] [place], [address] Chloride [Moles/Vol] 96 mmol/L Low 98-108 [facility] Comment on above: Order Comment: 135 Performed By: #### L 500.4050, L501.4020, L501.2450, L100.0500 #### [facility] [address] [place], [address] CO2 [Moles/Vol] 21.0 mmol/L Normal 21.0-32.0 [facility] Comment on above: Order Comment: 135 Performed By: #### L 500.4050, L501.4020, L501.2450, L100.0500 #### [facility] [address] [place], [address] Creatinine [Mass/Vol] 0.48 mg/dL Low 0.70-1.20 [facility] Comment on above: Order Comment: 135 Performed By: #### L 500.4050, L501.4020, L501.2450, L100.0500 #### [facility] [address] [place], [address] GAP 13 Normal 5-15 [facility] Comment on above: Order Comment: 135 Performed By: #### L 500.4050, L501.4020, L501.2450, L100.0500 #### [facility] [address] [place], [address] GFR/1.73 sq M.predicted among non-blacks MDRD (S/P/Bld) [Vol rate/Area] 108 mL/min/{1.73_m2} Normal >60 [facility] Comment on above: Order Comment: 135 Result Comment: mL/m in/1.73m2 CKD-EPI Creatinine Equation (2020) Performed By: #### L 500.4050, L501.4020, L501.2450, L100.0500 #### [facility] [address] [place], [address] Glucose [Mass/Vol] 169 mg/dL High 70-99 [facility] Comment on above: Order Comment: 135 Performed By: #### L 500.4050, L501.4020, L501.2450, L100.0500 #### [facility] [address] [place], [address] Potassium [Moles/Vol] 4.5 mmol/L Normal 3.3-5.1 [facility] Comment on above: Order Comment: 135 Performed By: #### L 500.4050, L501.4020, L501.2450, L100.0500 #### [facility] [address] [place], [address] Sodium [Moles/Vol] 130 mmol/L Low 133-145 [facility] Comment on above: Order Comment: 135 Performed By: #### L 500.4050, L501.4020, L501.2450, L100.0500 #### [facility] [address] [place], [address] Urea nitrogen [Mass/Vol] 14 mg/dL Normal 4-19 [facility] Comment on above: Order Comment: 135 Performed By: #### L 500.4050, L501.4020, L501.2450, L100.0500 #### [facility] [address] [place], [address] Basophil percentageOrdered B y: Aleksandar Jones on 03-28-2025 Basophils/100 WBC (Bld) 0.8 % 0-1 [facility] Bilirubin Test strip Ql (U)O rdered By: Aleksandar Jones on 03-28-2025 Bilirubin Ql (U) Negative Negative [facility] Blood manual differential co mment interpretation (narrative result)Ordered By: Aleksandar Jones on 03-28-2025 Manual differential comment Diego (Bld) [Interp] SCANNED [facility] CBC-Complete Blood Cnt No Di ffon 03-28-2025 Erythrocyte distribution width (RBC) [Ratio] 13.8 % Normal 11.6-14.6 [facility] Comment on above: Order Comment: 135 Performed By: #### L 500.4050, L501.4020, L501.2450, L100.0500 #### [facility] [address] [place], [address] Hematocrit (Bld) [Volume fraction] 38.1 % Normal 37-47 [facility] Comment on above: Order Comment: 135 Performed By: #### L 500.4050, L501.4020, L501.2450, L100.0500 #### [facility] [address] [place], [address] Hemoglobin (Bld) [Mass/Vol] 12.8 g/dL Normal 12.0-15.0 [facility] Comment on above: Order Comment: 135 Performed By: #### L 500.4050, L501.4020, L501.2450, L100.0500 #### [facility] [address] [place], [address] MCH (RBC) [Entitic mass] 29.3 pg Normal 27.0-32.0 [facility] Comment on above: Order Comment: 135 Performed By: #### L 500.4050, L501.4020, L501.2450, L100.0500 #### [facility] [address] [place], [address] MCHC (RBC) [Mass/Vol] 33.6 g/dL Normal 32-36 [facility] Comment on above: Order Comment: 135 Performed By: #### L 500.4050, L501.4020, L501.2450, L100.0500 #### [facility] [address] [place], [address] MCV (RBC) [Entitic vol] 87.2 fL Normal 81-99 [facility] Comment on above: Order Comment: 135 Performed By: #### L 500.4050, L501.4020, L501.2450, L100.0500 #### [facility] [address] [place], [address] Platelet mean volume (Bld) [Entitic vol] 11.2 fL Normal 6.2-12.0 [facility] Comment on above: Order Comment: 135 Performed By: #### L 500.4050, L501.4020, L501.2450, L100.0500 #### [facility] [address] [place], [address] Platelets (Bld) [#/Vol] 198 10*3/uL Normal 150-450 [facility] Comment on above: Order Comment: 135 Performed By: #### L 500.4050, L501.4020, L501.2450, L100.0500 #### [facility] [address] [place], [address] RBC (Bld) [#/Vol] 4.37 10*6/uL Normal 4.2-5.4 [facility] Comment on above: Order Comment: 135 Performed By: #### L 500.4050, L501.4020, L501.2450, L100.0500 #### [facility] [address] [place], [address] RDW SD 43.8 fl Normal 35.1-43.9 [facility] Comment on above: Order Comment: 135 Performed By: #### L 500.4050, L501.4020, L501.2450, L100.0500 #### [facility] [address] [place], [address] WBC (Bld) [#/Vol] 8.5 10*3/uL Normal 4.4-11.0 [facility] Comment on above: Order Comment: 135 Performed By: #### L 500.4050, L501.4020, L501.2450, L100.0500 #### [facility] [address] [place], [address] Carbon dioxide, total [Moles /volume] in Central venous bloodOrdered By: Aleksandar Jones on 03-28-2025 CO2 [Moles/Vol] 21.0 mmol/L 21.0-32.0 [facility] Chloride assayOrdered By: Julio Cesar Jones on 03-28-2025 Chloride [Moles/Vol] 96 mmol/L Low 98-108 [facility] Eosinophil %Ordered By: Jeancarlos Jones on 03-28-2025 Eosinophils/100 WBC (Bld) 0.4 % 0-5 [facility] Erythrocyte distribution wid th ratioOrdered By: Aleksandar Jones on 03-28-2025 Erythrocyte distribution width (RBC) [Ratio] 13.8 % 11.6-14.6 [facility] Erythrocyte distribution wid th standard deviationOrdered By: Aleksandar Jones on 03-28-2025 Erythrocyte distribution width (RBC) [Ratio] 43.8 fl 35.1-43.9 [facility] Glomerular filtration rate ( GFR) estimation/1.73 sq m using serum, plasma, or whole bOrdered By: Aleksandar Jones on 03-28-2025 GFR/1.73 sq M.predicted among non-blacks MDRD (S/P/Bld) [Vol rate/Area] 108 mL/min/{1.73_m2} >60 [facility] Comment on above: mL/min/1.73m2 CKD-EP I Creatinine Equation (2020) Hematocrit Auto (Bld) [Volum e fraction]Ordered By: Aleksandar Jones on 03-28-2025 Hematocrit (Bld) [Volume fraction] 38.1 % 37-47 [facility] Hemoglobin measurementOrdere d By: Aleksandar Jones on 03-28-2025 Hemoglobin (Bld) [Mass/Vol] 12.8 g/dL 12.0-15.0 [facility] Immature granulocyte percent ageOrdered By: Aleksandar Jones on 03-28-2025 Immature granulocytes/100 WBC (Bld) 0.600 % 0.0-0.9 [facility] Comment on above: IG% - Immature Granu locytes (promyelocytes, myelocytes and metamyelocytes) > 1% indicates that a LEFT SHIFT is Present. Ketones Test strip Ql (U)Ord ered By: Aleksandar Jones on 03-28-2025 Ketones Ql (U) Negative Negative [facility] Lymphocyte %Ordered By: Jeancarlos Jones on 03-28-2025 Lymphocytes/100 WBC (Bld) 22.2 % 19-41 [facility] MCV (mean corpuscular volume ) determinationOrdered By: Aleksandar Jones on 03-28-2025 MCV (RBC) [Entitic vol] 87.2 fL 81-99 [facility] Mean corpuscular hemoglobin (MCH) determinationOrdered By: Aleksandar Jones on 03-28-2025 MCH (RBC) [Entitic mass] 29.3 pg 27.0-32.0 [facility] Mean corpuscular hemoglobin concentration (MCHC) determinationOrdered By: Aleksandar Jones on 03-28-2025 MCHC (RBC) [Mass/Vol] 33.6 g/dL 32-36 [facility] Mean platelet volume determi nationOrdered By: Aleksandar Jones on 03-28-2025 Platelet mean volume (Bld) [Entitic vol] 11.2 fL 6.2-12.0 [facility] Microscopic analysis of urin e for red blood cells (RBC)Ordered By: Aleksandar Jones on 03-28-2025 Microscopic analysis of urine for red blood cells (RBC) 0 SEEN /hpf 0-5 [facility] Monocyte percentageOrdered B y: Aleksandar Jones on 03-28-2025 Monocytes/100 WBC (Bld) 7.9 % 0-10 [facility] Mucus LM Ql (Urine sed)Order ed By: Aleksandar Jones on 03-28-2025 Mucus Ql (Urine sed) 0 SEEN /hpf [facility] Neutrophil %Ordered By: Jeancarlos Jones on 03-28-2025 Neutrophils/100 WBC (Bld) 68.1 % 47-70 [facility] Nitrite Test strip Ql (U)Ord ered By: Aleksandar Jones on 03-28-2025 Nitrite Ql (U) Negative Negative [facility] Platelet countOrdered By: Julio Cesar Jones on 03-28-2025 Platelets (Bld) [#/Vol] 198 10*3/uL 150-450 [facility] Potassium measurement (mass/ volume)Ordered By: Aleksandar Jones on 03-28-2025 Potassium (Unsp spec) [Mass/Vol] 4.5 mmol/L 3.3-5.1 [facility] Protein Test strip Ql (U)Ord ered By: Aleksandar Jones on 03-28-2025 Protein Ql (U) 15 mg/dl High Negative [facility] RBC Auto (Bld) [#/Vol]Ordere d By: Aleksandar Jones on 03-28-2025 RBC (Bld) [#/Vol] 4.37 10*6/uL 4.2-5.4 [facility] Serum creatinine measurement (mass/volume)Ordered By: Aleksandar Jones on 03-28-2025 Creatinine [Mass/Vol] 0.48 mg/dL Low 0.70-1.20 [facility] Serum glucose measurement (m ass/volume)Ordered By: Aleksandar Jones on 03-28-2025 Glucose [Mass/Vol] 169 mg/dL High 70-99 [facility] Serum or plasma calcium lawrence urement (mass/volume)Ordered By: Aleksandar Jones on 03-28-2025 Calcium [Mass/Vol] 9.2 mg/dL 7.6-11.0 [facility] Serum or plasma urea nitroge n measurement (mass/volume)Ordered By: Aleksandar Jones on 03-28-2025 Urea nitrogen [Mass/Vol] 14 mg/dL 4-19 [facility] Sodium levelOrdered By: Jeancarlos Jones on 03-28-2025 Sodium [Moles/Vol] 130 mmol/L Low 133-145 [facility] Squamous epithelial cells de tection in urine sediment by light microscopyOrdered By: Aleksandar Jones on 03-28-2025 Epithelial cells.squamous LM Ql (Urine sed) 0 SEEN /hpf 5-10 [facility] Transitional cells detection in urine sediment by light microscopyOrdered By: Aleksandar Jones on 03-28-2025 Transitional cells LM Ql (Urine sed) 0-5 SEEN /hpf 0-5 [facility] Urine clarityOrdered By: Guillaume Jones on 03-28-2025 Clarity (U) Clear Clear [facility] Urine color determinationOrd ered By: Aleksandar Jones on 03-28-2025 Color (U) Yellow Yellow [facility] Urine cultureOrdered By: Guillaume Jones on 03-28-2025 Bacteria identified Cx Nom (U) Positive Abnormal [facility] Urine glucose detectionOrder ed By: Aleksandar Jones on 03-28-2025 Glucose Ql (U) 1000 mg/dl High Normal [facility] Urine leukocyte esterase det ection by dipstickOrdered By: Aleksandar Jones on 03-28-2025 Leukocyte esterase Test strip Ql (U) Negative Negative [facility] Urine pHOrdered By: Aleksandar Jones on 03-28-2025 pH (U) 6.5 [pH] 5.0 - 8.0 [facility] Urine sediment bacteria coun t by microscopy (number/high power field)Ordered By: Aleksandar Jones on 03-28-2025 Bacteria LM.HPF (Urine sed) [#/Area] 0 /[HPF] None Seen [facility] Urine specific gravity measu rementOrdered By: Aleksandar Jones on 03-28-2025 Specific gravity (U) [Rel density] 1.010 1.002-1.030 [facility] Urine urobilinogen measureme ntOrdered By: Aleksandar Jones on 03-28-2025 Urobilinogen Ql (U) Normal mg/dl Normal [facility] White blood cell (WBC) count Ordered By: Aleksandar Jones on 03-28-2025 WBC (Bld) [#/Vol] 8.5 10*3/uL 4.4-11.0 [facility] White blood cell countOrdere d By: Aleksandar Jones on 03-28-2025 White blood cell count 0 SEEN /hpf 0-5 [facility] CNPNon 03-14-2025 CNPN Normal [facility] Absolute lymphocyte countOrd ered By: [facility] on 03-01-2025 Lymphocytes Auto (Unsp spec) [#/Vol] 1.91 10*3/uL 0.83-4.51 [facility] Absolute neutrophil countOrd ered By: [facility] on 03-01-2025 Neutrophils (Bld) [#/Vol] 9.8 10*3/uL High 2.0-7.7 [facility] Automated lymphocyte count a s percentage of total leukocytesOrdered By: [facility] on 03-01-2025 Lymphocytes/100 WBC Auto (Unsp spec) 15.0 % Low 19-41 [facility] Basophil percentageOrdered B y: [facility] on 03-01-2025 Basophils/100 WBC (Bld) 0.4 % 0-1 [facility] CBC W/Diff, Automatedon 02-11 0-2024 Absolute Lymph 1.91 X10 3/uL Normal 0.83-4.51 [facility] Comment on above: Performed By: #### L 500.2500, L100.0100 #### [facility] [address] [place], [address] Absolute Neut 9.8 X10 3/uL High 2.0-7.7 [facility] Comment on above: Performed By: #### L 500.2500, L100.0100 #### [facility] [address] [place], [address] Basophils/100 WBC (Bld) 0.4 % Normal 0-1 [facility] Comment on above: Performed By: #### L 500.2500, L100.0100 #### [facility] [address] [place], [address] Eosinophils/100 WBC (Bld) 0.2 % Normal 0-5 [facility] Comment on above: Performed By: #### L 500.2500, L100.0100 #### [facility] [address] [place], [address] Erythrocyte distribution width (RBC) [Ratio] 14.1 % Normal 11.6-14.6 [facility] Comment on above: Performed By: #### L 500.2500, L100.0100 #### [facility] [address] [place], [address] Hematocrit (Bld) [Volume fraction] 39.9 % Normal 37-47 [facility] Comment on above: Performed By: #### L 500.2500, L100.0100 #### [facility] [address] [place], [address] Hemoglobin (Bld) [Mass/Vol] 13.4 g/dL Normal 12.0-15.0 [facility] Comment on above: Performed By: #### L 500.2500, L100.0100 #### [facility] [address] [place], [address] IG% 0.600 Normal 0.0-0.9 [facility] Comment on above: Result Comment: IG% - Immature Granulocytes (promyelocytes, myelocytes and metamyelocytes) > 1% indicates that a LEFT SHIFT is Present. Performed By: #### L 500.2500, L100.0100 #### [facility] [address] [place], [address] Lymphocytes/100 WBC (Bld) 15.0 % Low 19-41 [facility] Comment on above: Performed By: #### L 500.2500, L100.0100 #### [facility] [address] [place], [address] MCH (RBC) [Entitic mass] 29.5 pg Normal 27.0-32.0 [facility] Comment on above: Performed By: #### L 500.2500, L100.0100 #### [facility] [address] [place], [address] MCHC (RBC) [Mass/Vol] 33.6 g/dL Normal 32-36 [facility] Comment on above: Performed By: #### L 500.2500, L100.0100 #### [facility] [address] [place], [address] MCV (RBC) [Entitic vol] 87.7 fL Normal 81-99 [facility] Comment on above: Performed By: #### L 500.2500, L100.0100 #### [facility] [address] [place], [address] Monocytes/100 WBC (Bld) 6.6 % Normal 0-10 [facility] Comment on above: Performed By: #### L 500.2500, L100.0100 #### [facility] [address] [place], [address] Neutrophils/100 WBC (Bld) 77.2 % High 47-70 [facility] Comment on above: Performed By: #### L 500.2500, L100.0100 #### [facility] [address] [place], [address] Nucleated RBC (Bld) [#/Vol] 0 10*3/uL Normal 0-5 [facility] Comment on above: Performed By: #### L 500.2500, L100.0100 #### [facility] [address] [place], [address] Platelet mean volume (Bld) [Entitic vol] 10.9 fL Normal 6.2-12.0 [facility] Comment on above: Performed By: #### L 500.2500, L100.0100 #### [facility] [address] [place], [address] Platelets (Bld) [#/Vol] 212 10*3/uL Normal 150-450 [facility] Comment on above: Performed By: #### L 500.2500, L100.0100 #### [facility] [address] [place], [address] RBC (Bld) [#/Vol] 4.55 10*6/uL Normal 4.2-5.4 [facility] Comment on above: Performed By: #### L 500.2500, L100.0100 #### [facility] [address] [place], [address] RDW SD 44.8 fl High 35.1-43.9 [facility] Comment on above: Performed By: #### L 500.2500, L100.0100 #### [facility] [address] [place], [address] WBC (Bld) [#/Vol] 12.7 10*3/uL High 4.4-11.0 [facility] Comment on above: Performed By: #### L 500.2500, L100.0100 #### [facility] [address] [place], [address] CNPNon 03-01-2025 CNPN Normal [facility] Eosinophil percentageOrdered By: [facility] on 03-01-2025 Eosinophils/100 WBC (Bld) 0.2 % 0-5 [facility] Erythrocyte distribution wid th ratioOrdered By: [facility] on 03-01-2025 Erythrocyte distribution width (RBC) [Ratio] 14.1 % 11.6-14.6 [facility] Erythrocyte distribution wid th standard deviationOrdered By: [facility] on 03-01-2025 Erythrocyte distribution width (RBC) [Ratio] 44.8 fl High 35.1-43.9 [facility] Hematocrit Auto (Bld) [Volum e fraction]Ordered By: [facility] on 03-01-2025 Hematocrit (Bld) [Volume fraction] 39.9 % 37-47 [facility] Hemoglobin measurementOrdere d By: [facility] on 03-01-2025 Hemoglobin (Bld) [Mass/Vol] 13.4 g/dL 12.0-15.0 [facility] Immature granulocytes/100 WB C Auto (Bld)Ordered By: [facility] on 03-01-2025 Immature granulocytes/100 WBC (Bld) 0.600 % 0.0-0.9 [facility] Comment on above: IG% - Immature Granu locytes (promyelocytes, myelocytes and metamyelocytes) > 1% indicates that a LEFT SHIFT is Present. MCV (mean corpuscular volume ) determinationOrdered By: [facility] on 03-01-2025 MCV (RBC) [Entitic vol] 87.7 fL 81-99 [facility] Mean corpuscular hemoglobin (MCH) determinationOrdered By: [facility] on 03-01-2025 MCH (RBC) [Entitic mass] 29.5 pg 27.0-32.0 [facility] Mean corpuscular hemoglobin concentration (MCHC) determinationOrdered By: [facility] on 03-01-2025 MCHC (RBC) [Mass/Vol] 33.6 g/dL 32-36 [facility] Mean platelet volume determi nationOrdered By: [facility] on 03-01-2025 Platelet mean volume (Bld) [Entitic vol] 10.9 fL 6.2-12.0 [facility] Monocyte percentageOrdered B y: [facility] on 03-01-2025 Monocytes/100 WBC (Bld) 6.6 % 0-10 [facility] Neutrophil percentageOrdered By: [facility] on 03-01-2025 Neutrophils/100 WBC (Bld) 77.2 % High 47-70 [facility] Nucleated red blood cell per centageOrdered By: [facility] on 03-01-2025 Nucleated RBC/100 WBC (Bld) [Ratio] 0 % 0-5 [facility] Platelet countOrdered By: [facility] on 03-01-2025 Platelets (Bld) [#/Vol] 212 10*3/uL 150-450 [facility] RBC Auto (Bld) [#/Vol]Ordere d By: [facility] on 03-01-2025 RBC (Bld) [#/Vol] 4.55 10*6/uL 4.2-5.4 [facility] White blood cell (WBC) count Ordered By: [facility] on 03-01-2025 WBC (Bld) [#/Vol] 12.7 10*3/uL High 4.4-11.0 [facility] CNPNon 02-25-2025 CNPN Normal [facility]Non 02-10-[address] [facility] Absolute lymphocyte countOrd ered By: Lorraine Springer on 02-02-2025 Lymphocytes Auto (Unsp spec) [#/Vol] 2.80 10*3/uL 0.83-4.51 [facility] Absolute neutrophil countOrd ered By: Lorraine Springer on 02-02-2025 Neutrophils (Bld) [#/Vol] 6.4 10*3/uL 2.0-7.7 [facility] Automated lymphocyte count a s percentage of total leukocytesOrdered By: Lorraine Springer on 02-02-2025 Lymphocytes/100 WBC Auto (Unsp spec) 27.4 % 19-41 [facility] Basophil percentageOrdered B y: Lorraine Springer on 02-02-2025 Basophils/100 WBC (Bld) 0.5 % 0-1 [facility] CBC W/Diff, Automatedon 01-12 REACTIVE LYMPH RARE Normal [facility] Comment on above: Performed By: #### L 500.2500, L100.0100 #### [facility] [address] [place] [address]. [place], [address] Eosinophil percentageOrdered By: Lorraine Springer on 02-02-2025 Eosinophils/100 WBC (Bld) 0.4 % 0-5 [facility] Erythrocyte distribution wid th ratioOrdered By: Lorraine Springer on 02-02-2025 Erythrocyte distribution width (RBC) [Ratio] 13.2 % 11.6-14.6 [facility] Erythrocyte distribution wid th standard deviationOrdered By: Lorraine Springer on 02-02-2025 Erythrocyte distribution width (RBC) [Ratio] 41.5 fl 35.1-43.9 [facility] Hematocrit Auto (Bld) [Volum e fraction]Ordered By: Lorraine Springer on 02-02-2025 Hematocrit (Bld) [Volume fraction] 38.7 % 37-47 [facility] Hemoglobin measurementOrdere d By: Lorraine Springer on 02-02-2025 Hemoglobin (Bld) [Mass/Vol] 12.9 g/dL 12.0-15.0 [facility] Immature granulocytes/100 WB C Auto (Bld)Ordered By: Lorraine Springer on 02-02-2025 Immature granulocytes/100 WBC (Bld) 0.700 % 0.0-0.9 [facility] Comment on above: IG% - Immature Granu locytes (promyelocytes, myelocytes and metamyelocytes) > 1% indicates that a LEFT SHIFT is Present. MCV (mean corpuscular volume ) determinationOrdered By: Lorraine Springer on 02-02-2025 MCV (RBC) [Entitic vol] 86.6 fL 81-99 [facility] Mean corpuscular hemoglobin (MCH) determinationOrdered By: Lorraine Springer on 02-02-2025 MCH (RBC) [Entitic mass] 28.9 pg 27.0-32.0 [facility] Mean corpuscular hemoglobin concentration (MCHC) determinationOrdered By: Lorraine Springer on 02-02-2025 MCHC (RBC) [Mass/Vol] 33.3 g/dL 32-36 [facility] Mean platelet volume determi nationOrdered By: Lorraine Springer on 02-02-2025 Platelet mean volume (Bld) [Entitic vol] 10.3 fL 6.2-12.0 [facility] Monocyte percentageOrdered B y: Lorraine Springer on 02-02-2025 Monocytes/100 WBC (Bld) 8.8 % 0-10 [facility] Neutrophil percentageOrdered By: Lorraine Springer on 02-02-2025 Neutrophils/100 WBC (Bld) 62.2 % 47-70 [facility] Nucleated red blood cell per centageOrdered By: Lorraine Springer on 02-02-2025 Nucleated RBC/100 WBC (Bld) [Ratio] 0 % 0-5 [facility] Platelet countOrdered By: Anastacia Springer on 02-02-2025 Platelets (Bld) [#/Vol] 213 10*3/uL 150-450 [facility] RBC Auto (Bld) [#/Vol]Ordere d By: Lorraine Springer on 02-02-2025 RBC (Bld) [#/Vol] 4.47 10*6/uL 4.2-5.4 [facility] White blood cell (WBC) count Ordered By: Lorraine Springer on 02-02-2025 WBC (Bld) [#/Vol] 10.2 10*3/uL 4.4-11.0 [facility] CNPNon 01-31-2025 CNPN Normal [facility] CNPNon 01-27-2025 CNPN Normal [facility] CNPNon 01-21-2025 CNPN Normal [facility] FRANNY SCREENING W TOMOon 01-19 FRANNY SCREENING W AUGUSTO Normal [facility] No Panel Informationon 01-18 IMPRESSION: Hepatic steatosis. Prior cholecystectomy. Recruiter Specialist: MILDRED Transcribe Date/Time: Jan 18 2025 11:43A Dictated by : SABRA BYRD MD This examination was interpreted and the report reviewed and electronically signed by: SABRA BYRD MD on Jan 18 2025 11:44AM [facility] DIVISION OF RADIOLOGY Radiology Study observation (narrative) [facility] No Panel InformationOrdered By: Ccf Provider on 01-18-2025 [facility] US ABD RIGHT UPPER QUADRANTo n 01-18-2025 US ABD RIGHT UPPER QUADRANT Normal [facility] US ABD SPLEEN - NBon 025 * [...] dimension. Ascites: None. DIVISION OF RADIOLOGY Provider, [facility] - 01/18/2025 * * *Final Report* [...] None. IMPRESSION IMPRESSION: Hepatic steatosis. Prior cholecystectomy. Recruiter Specialist[facility] Transcribe Date/Time: Jan 18 2025 11:43A Dictated by : SABRA BYRD MD This examination was interpreted and the report reviewed and electronically signed by: SABRA BYRD MD on Jan 18 2025 11:44AM EST [facility] US ABD SPLEEN -NBon 01-19-20 25 US ABD SPLEEN -NB Normal [facility] US Abdomen RUQon 01-18-2025 * * [...] None. IMPRESSION IMPRESSION: Hepatic steatosis. Prior cholecystectomy. Recruiter Specialist: [facility] Transcribe Date/Time: Jan 18 2025 11:43A Dictated by : SABRA BYRD MD This examination was interpreted and the report reviewed and electronically signed by: SABRA BYRD MD on Jan 18 2025 11:44AM EST [facility] CNOVon 01-12-2025 CNOV Normal [facility] CNPNon 01-12-2025 CNPN Normal [facility] HBV DNA Qn (S)on 01-12-2025 HBV DNA LUIS M+probe Ql Not detected Not detected [facility] Interpretation and review of laboratory results Normal [facility] melanie HBV is an in v [...] EDTA plasma and 2.4 IU/mL in serum. [facility] HBV core Ab Ql (S)on 025 Interpretation and review of laboratory results Normal [facility] HBV core IgM Ql (S)on 2024 Interpretation and review of laboratory results Abnormal [facility] HBV surface Ab Ql (S)on HBV surface Ab Qn (S) mIU/mL [facility] Comment on above: <8 mIU/mL: No serolo gical evidence of immunity to Hepatitis B Virus. >/= 8 to <12 mIU/mL: No serological evidence of immunity to Hepatitis B Virus. >/= 12 mIU/mL: Consistent with serological evidence of immunity to Hepatitis B Virus. [facility] HBV surface Ag Ql (S)on Interpretation and review of laboratory results Normal [facility] HEPATITIS B CORE ANTIBODY IG 01-12-2025 HBV core IgM Ql (S) Positive Abnormal Negative [facility] Comment on above: The result suggests recent acute infection with Hepatitis B virus. Non-specific reactivity is not uncommon with this test. HBV core IgM antibody may also remain elevated for extended periods after an acute bout of infection. Clinical correlation required. HEPATITIS B CORE ANTIBODY TO Joslyn 01-12-2025 HBV core Ab Ql (S) Negative Negative [facility] Comment on above: No evidence of curre nt or past infection with Hepatitis B virus. Should recent infection be suspected, repeat testing may be considered 3-4 weeks after this draw. HEPATITIS B SURFACE ANTIBODY on 01-12-2025 HBV surface Ab Ql (S) Negative [facility] Comment on above: No serological evide nce of immunity to Hepatitis B Virus. HEPATITIS B SURFACE ANTIGENo n 01-12-2025 HBV surface Ag Ql (S) Negative Negative [facility] Osmolality Uron 01-12-2025 Osmolality (U) [Osmolality] 131 mosm/kg Normal 50-1200 [facility] Comment on above: Order Comment: Speci men Type: URINE SPECIMENOrdering Facility: [facility] Address: [address] [place] [address] Performed By: #### 2 695-5 ####[facility] LABCLIA [id number] [address] [place] Sodium ?Tm Ur-sCncon 025 Sodium Unsp time (U) [Moles/Vol] 32 mmol/L Normal 14-216 [facility] Comment on above: Order Comment: Speci men Type: URINE SPECIMENOrdering Facility: [facility] Address: [address] [place] [address] Performed By: #### 3 5678-2 ####[facility] LABCLIA [id number] [place] [id number] [place] Comprehensive metabolic 2000 panelon 01-11-2025 Albumin [Mass/Vol] 4.7 g/dL Normal 3.9-4.9 [facility] Comment on above: Order Comment: Speci men Type: BLOOD SPECIMENOrdering Facility: [facility] Address: [address] [place] [address] Performed By: #### 2 2322-2, 21535-9, 33515-0, 5195-3, 72227-9 ####[facility] LABCLIA [id number] [place] [id number] [place] ALP [Catalytic activity/Vol] 128 U/L High 34-123 [facility] Comment on above: Order Comment: Speci men Type: BLOOD SPECIMENOrdering Facility: [facility] Address: [address] [place] [address] Performed By: #### 2 2322-2, 37770-9, 08292-0, 5-3, 37115-8 ####[facility] LABCLIA [id number] [place] [id number] [place] ALT [Catalytic activity/Vol] 51 U/L High 7-38 [facility] Comment on above: Order Comment: Speci men Type: BLOOD SPECIMENOrdering Facility: [facility] Address: [address] [place] [address] Performed By: #### 2 2322-2, 77368-1, 97716-7, 5195-3, 83546-0 ####[facility] LABCLIA [id number] [facility] [address] [address] [place] Anion gap [Moles/Vol] 19 mmol/L High 8-15 [facility] Comment on above: Order Comment: Speci men Type: BLOOD SPECIMENOrdering Facility: [facility] Address: [address] [place], [place] [address] Performed By: #### 2 2322-2, 51005-8, 24209-3, 5195-3, 11603-0 ####[facility] LABCLIA [id number] [address] [address] [place] AST [Catalytic activity/Vol] 23 U/L Normal 13-35 [facility] Comment on above: Order Comment: Speci men Type: BLOOD SPECIMENOrdering Facility: [facility] Address: [address] [place], [place] [address] Performed By: #### 2 2322-2, 82239-6, 05148-4, 5195-3, 63674-1 ####[facility] LABCLIA [id number] [address] [address] [place] Bilirubin [Mass/Vol] 0.3 mg/dL Normal 0.2-1.3 [facility] Comment on above: Order Comment: Speci men Type: BLOOD SPECIMENOrdering Facility: [facility] Address: [address] [place], [place] [address] Performed By: #### 2 2322-2, 30414-2, 81970-4, 5195-3, 44686-7 ####[facility] LABCLIA [id number] [address] [address] [place] Calcium [Mass/Vol] 9.4 mg/dL Normal 8.5-10.2 [facility] Comment on above: Order Comment: Speci men Type: BLOOD SPECIMENOrdering Facility: [facility] Address: [address] [place], [place] [address] Performed By: #### 2 2322-2, 65591-0, 64233-6, 5195-3, 63764-5 ####[facility] LABCLIA [id number] [address] [address] [place] Chloride [Moles/Vol] 93 mmol/L Low 98-107 [facility] Comment on above: Order Comment: Speci men Type: BLOOD SPECIMENOrdering Facility: [facility] Address: [address] [place] [address] Performed By: #### 2 2322-2, 14840-8, 08940-1, 5195-3, 27872-8 ####[facility] LABIA [id number] [place] [id number] [place] CO2 [Moles/Vol] 18 mmol/L Low 22-30 [facility] Comment on above: Order Comment: Speci men Type: BLOOD SPECIMENOrdering Facility: [facility] Address: [address] [place] [address] Performed By: #### 2 2322-2, 22559-4, 38254-1, 5-3, 08677-0 ####[facility] LABIA [id number] [place] [id number] [place] Creatinine [Mass/Vol] 0.40 mg/dL Low 0.58-0.96 [facility] Comment on above: Order Comment: Speci men Type: BLOOD SPECIMENOrdering Facility: [facility] Address: [address] [place] [address] Performed By: #### 2 2322-2, 83966-6, 45320-8, 5195-3, 23828-1 ####[facility] LABIA [id number] [place] [id number] [place] Creatinine and Glomerular filtration rate.predicted panel (S/P/Bld) 113 mL/min/1.73m??? Normal >=60 [facility] Comment on above: Order Comment: Speci men Type: BLOOD SPECIMENOrdering Facility: [facility] Address: [address] [place] [address] Result Comment: Gia mated Glomerular Filtration Rate [...] actual GFR. Performed By: #### 2 2322-2, 77884-9, 52197-1, 5-3, 31505-5 ####[facility] LABCLIA [id number] [place] [address] [place] Glucose [Mass/Vol] 155 mg/dL High 74-99 [facility] Comment on above: Order Comment: Rand gonzalez Type: BLOOD SPECIMENOrdering Facility: [facility] Address: [address] [place] [address] Result Comment: The [place] Diabetes Association (ADA) provides guidance for cutoff [...] Medical Care in Diabetes 2016, [place] Diabetes Association. Diabetes Care. 2016.39(Suppl 1). Performed By: #### 2 2322-2, 54066-6, 38362-7, 5-3, 57469-2 ####[facility] LABCLIA [id number] [place] [id number] [place] Potassium [Moles/Vol] 4.6 mmol/L Normal 3.7-5.1 [facility] Comment on above: Order Comment: Rand gonzalez Type: BLOOD SPECIMENOrdering Facility: [facility] Address: [address] [place] [address] Performed By: #### 2 2322-2, 69140-5, 31097-3, 5194-3, 70045-9 ####[facility] LABCLIA [id number] [facility] [address] [place] [address] [place] Protein [Mass/Vol] 7.4 g/dL Normal 6.3-8.0 [facility] Comment on above: Order Comment: Speci men Type: BLOOD SPECIMENOrdering Facility: [facility] Address: [address] [place], [place] [address] Performed By: #### 2 2322-2, 20633-0, 54367-5, 5194-3, ####[facility] LABCLIA [id number] [address] [place] [address] [place] Sodium [Moles/Vol] 130 mmol/L Low 136-144 [facility] Comment on above: Order Comment: Speci men Type: BLOOD SPECIMENOrdering Facility: [facility] Address: [address] [place], [place] [address] Performed By: #### 2 2322-2, 53681-0, 03647-4, 3, ####[facility] LABCLIA [id number] [address] [place] [address] [place] Urea nitrogen [Mass/Vol] 7 mg/dL Normal 7-21 [facility] Comment on above: Order Comment: Speci men Type: BLOOD SPECIMENOrdering Facility: [facility] Address: [address] [place] [address] Performed By: #### 2 2322-2, 14481-6, 74865-5, 5194-3, ####[facility] LABCLIA [id number] [facility] [address] [place] [address] [place] HBV DNA Qn (S)on 01-11-2025 HBV DNA LUIS M+probe Ql Not detected Normal Not detected [facility] Comment on above: Order Comment: Rand gonzalez Type: BLOOD SPECIMENOrdering Facility: [facility] Address: [address] [place] [address] Performed By: #### 1 1258-1 ####[facility] LABCLIA [id number] [place] [address] [place] HBV core Ab Ser Qlon 025 HBV core Ab Ql (S) Negative Normal Negative [facility] Comment on above: Order Comment: Rand gonzalez Type: BLOOD SPECIMENOrdering Facility: [facility] Address: [address] [place] [address] Result Comment: No e vidence of current or past infection with Hepatitis B virus. Should recent infection be suspected, repeat testing may be considered 3-4 weeks after this draw. Performed By: #### 2 2322-2, 05677-5, 66069-3, 5195-3, 46748-1 ####[facility] LABCLIA [id number] [address] STATES OF [facility] HBV core IgM Ser Qlon 2024 HBV core IgM Ql (S) Positive Abnormal Negative [facility] Comment on above: Order Comment: Rand gonzalez Type: BLOOD SPECIMENOrdering Facility: [facility] Address: [address] [place] [address] Result Comment: The result suggests recent acute infection with Hepatitis B virus. Non-specific reactivity is not uncommon with this test. HBV core IgM antibody may also remain elevated for extended periods after an acute bout of infection. Clinical correlation required. Performed By: #### 2 2322-2, 88223-9, 30067-4, 5-3, 59934-8 ####[facility] LABCLIA [id number] [place] [id number] [place] HBV surface Ab Ql (S)on HBV surface Ab Qn (S) <8.00 Normal [facility] Comment on above: Order Comment: Rand gonzalez Type: BLOOD SPECIMENOrdering Facility: [facility] Address: [address] [place] [address] Result Comment: <8 m IU/mL: No serological evidence of immunity to Hepatitis B Virus.>/= 8 to <12 mIU/mL: No serological evidence of immunity to Hepatitis B Virus.>/= 12 mIU/mL: Consistent with serological evidence of immunity to Hepatitis B Virus. Performed By: #### 2 2322-2, 88261-5, 35296-1, 5-3, 82277-6 ####[facility] LABCLIA [id number] [place] [address] [place] HBV surface Ab Ser Qlon 04-0 HBV surface Ab Ql (S) Negative Normal [facility] Comment on above: Order Comment: Speci men Type: BLOOD SPECIMENOrdering Facility: [facility] Address: [address] [place] [address] Result Comment: No s erological evidence of immunity to Hepatitis B Virus. Performed By: #### 2 2322-2, 72715-6, 65890-5, 5195-3, 46862-0 ####[facility] LABCLIA [id number] [place] [address] [place] HBV surface Ag Ser Qlon 040 HBV surface Ag Ql (S) Negative Normal Negative [facility] Comment on above: Order Comment: Speci men Type: BLOOD SPECIMENOrdering Facility: [facility] Address: [address] [place] [address] Performed By: #### 2 2322-2, 61330-4, 29403-9, 5195-3, 11810-2 ####[facility] LABCLIA [id number] [place] [address] [place] CNPNon 01-05-2025 CNPN Normal [facility] Absolute lymphocyte countOrd ered By: Lorraine Springer on 01-04-2025 Lymphocytes Auto (Unsp spec) [#/Vol] 2.29 10*3/uL 0.83-4.51 [facility] Absolute neutrophil countOrd ered By: Moondonald Hermilodinorah on 01-04-2025 Neutrophils (Bld) [#/Vol] 8.8 10*3/uL High 2.0-7.7 [facility] Automated lymphocyte count a s percentage of total leukocytesOrdered By: Moondonald Hermilodinorah on 01-04-2025 Lymphocytes/100 WBC Auto (Unsp spec) 19.0 % 19-41 [facility] Basophil percentageOrdered B y: Lorraine Hermilodinorah on 01-04-2025 Basophils/100 WBC (Bld) 0.3 % 0-1 [facility] CBC W/Diff, Automatedon 12-12 Absolute Lymph 2.29 X10 3/uL Normal 0.83-4.51 [facility] Comment on above: Performed By: #### L 500.2500, L100.0100 #### [facility] [address] [place], [address] Absolute Neut 8.8 X10 3/uL High 2.0-7.7 [facility] Comment on above: Performed By: #### L 500.2500, L100.0100 #### [facility] [address] [place], [address] Basophils/100 WBC (Bld) 0.3 % Normal 0-1 [facility] Comment on above: Performed By: #### L 500.2500, L100.0100 #### [facility] [address] [place], [address] Eosinophils/100 WBC (Bld) 0.2 % Normal 0-5 [facility] Comment on above: Performed By: #### L 500.2500, L100.0100 #### [facility] [address] [place], [address] Erythrocyte distribution width (RBC) [Ratio] 13.9 % Normal 11.6-14.6 [facility] Comment on above: Performed By: #### L 500.2500, L100.0100 #### [facility] [address] [place], [address] Hematocrit (Bld) [Volume fraction] 39.5 % Normal 37-47 [facility] Comment on above: Performed By: #### L 500.2500, L100.0100 #### [facility] [address] [place], [address] Hemoglobin (Bld) [Mass/Vol] 13.1 g/dL Normal 12.0-15.0 [facility] Comment on above: Performed By: #### L 500.2500, L100.0100 #### [facility] [address] [place], [address] IG% 0.700 Normal 0.0-0.9 [facility] Comment on above: Result Comment: IG% - Immature Granulocytes (promyelocytes, myelocytes and metamyelocytes) > 1% indicates that a LEFT SHIFT is Present. Performed By: #### L 500.2500, L100.0100 #### [facility] [address] [place], [address] Lymphocytes/100 WBC (Bld) 19.0 % Normal 19-41 [facility] Comment on above: Performed By: #### L 500.2500, L100.0100 #### [facility] [address] [place], [address] MCH (RBC) [Entitic mass] 29.1 pg Normal 27.0-32.0 [facility] Comment on above: Performed By: #### L 500.2500, L100.0100 #### [facility] [address] [place], [address] MCHC (RBC) [Mass/Vol] 33.2 g/dL Normal 32-36 [facility] Comment on above: Performed By: #### L 500.2500, L100.0100 #### [facility] [address] [place], [address] MCV (RBC) [Entitic vol] 87.8 fL Normal 81-99 [facility] Comment on above: Performed By: #### L 500.2500, L100.0100 #### [facility] [address] [place], [address] Monocytes/100 WBC (Bld) 6.5 % Normal 0-10 [facility] Comment on above: Performed By: #### L 500.2500, L100.0100 #### [facility] [address] [place], [address] Neutrophils/100 WBC (Bld) 73.3 % High 47-70 [facility] Comment on above: Performed By: #### L 500.2500, L100.0100 #### [facility] [address] [place], [address] Nucleated RBC (Bld) [#/Vol] 0 10*3/uL Normal 0-5 [facility] Comment on above: Performed By: #### L 500.2500, L100.0100 #### [facility] [address] [place], [address] Platelet mean volume (Bld) [Entitic vol] 10.1 fL Normal 6.2-12.0 [facility] Comment on above: Performed By: #### L 500.2500, L100.0100 #### [facility] [address] [place], [address] Platelets (Bld) [#/Vol] 195 10*3/uL Normal 150-450 [facility] Comment on above: Performed By: #### L 500.2500, L100.0100 #### [facility] [address] [place], [address] RBC (Bld) [#/Vol] 4.50 10*6/uL Normal 4.2-5.4 [facility] Comment on above: Performed By: #### L 500.2500, L100.0100 #### [facility] [address] [place], [address] RDW SD 44.7 fl High 35.1-43.9 [facility] Comment on above: Performed By: #### L 500.2500, L100.0100 #### [facility] [address] [place], [address] WBC (Bld) [#/Vol] 12.1 10*3/uL High 4.4-11.0 [facility] Comment on above: Performed By: #### L 500.2500, L100.0100 #### [facility] [address] [place], [address] CNPNon 01-04-2025 CNPN Normal [facility] Eosinophil percentageOrdered By: Lorraine Springer on 01-04-2025 Eosinophils/100 WBC (Bld) 0.2 % 0-5 [facility] Erythrocyte distribution wid th ratioOrdered By: Lorraine Springer on 01-04-2025 Erythrocyte distribution width (RBC) [Ratio] 13.9 % 11.6-14.6 [facility] Erythrocyte distribution wid th standard deviationOrdered By: Lorraine Springer on 01-04-2025 Erythrocyte distribution width (RBC) [Entitic vol] 44.7 fL High 35.1-43.9 [facility] Erythrocyte distribution width (RBC) [Ratio] 44.7 fl High 35.1-43.9 [facility] Hematocrit Auto (Bld) [Volum e fraction]Ordered By: Lorraine Springer on 01-04-2025 Hematocrit (Bld) [Volume fraction] 39.5 % 37-47 [facility] Hemoglobin measurementOrdere d By: Lorraine Springer on 01-04-2025 Hemoglobin (Bld) [Mass/Vol] 13.1 g/dL 12.0-15.0 [facility] Immature granulocytes/100 WB C Auto (Bld)Ordered By: Lorraine Springer on 01-04-2025 Immature granulocytes/100 WBC (Bld) 0.700 % 0.0-0.9 [facility] Comment on above: IG% - Immature Granu locytes (promyelocytes, myelocytes and metamyelocytes) > 1% indicates that a LEFT SHIFT is Present. Lymphocytes Auto (Unsp spec) [#/Vol]Ordered By: Lorraine Springer on 01-04-2025 Lymphocytes (Bld) [#/Vol] 2.29 10*3/uL 0.83-4.51 [facility] Lymphocytes/100 WBC Auto (Un sp spec)Ordered By: Lorraine Springer on 01-04-2025 Lymphocytes/100 WBC (Bld) 19.0 % 19-41 [facility] MCV (mean corpuscular volume ) determinationOrdered By: Lorraine Springer on 01-04-2025 MCV (RBC) [Entitic vol] 87.8 fL 81-99 [facility] Mean corpuscular hemoglobin (MCH) determinationOrdered By: Lorraine Springer on 01-04-2025 MCH (RBC) [Entitic mass] 29.1 pg 27.0-32.0 [facility] Mean corpuscular hemoglobin concentration (MCHC) determinationOrdered By: Lorraine Springer on 01-04-2025 MCHC (RBC) [Mass/Vol] 33.2 g/dL 32-36 [facility] Mean platelet volume determi nationOrdered By: Lorraine Springer on 01-04-2025 Platelet mean volume (Bld) [Entitic vol] 10.1 fL 6.2-12.0 [facility] Monocyte percentageOrdered B y: Lorraine Springer on 01-04-2025 Monocytes/100 WBC (Bld) 6.5 % 0-10 [facility] Neutrophil percentageOrdered By: Lorraine Springer on 01-04-2025 Neutrophils/100 WBC (Bld) 73.3 % High 47-70 [facility] Nucleated red blood cell per centageOrdered By: Lorraine Springer on 01-04-2025 Nucleated RBC/100 WBC (Bld) [Ratio] 0 % 0-5 [facility] Platelet countOrdered By: Anastacia Springer on 01-04-2025 Platelets (Bld) [#/Vol] 195 10*3/uL 150-450 [facility] RBC Auto (Bld) [#/Vol]Ordere d By: Lorraine Springer on 01-04-2025 RBC (Bld) [#/Vol] 4.50 10*6/uL 4.2-5.4 [facility] White blood cell (WBC) count Ordered By: Lorraine Springer on 01-04-2025 WBC (Bld) [#/Vol] 12.1 10*3/uL High 4.4-11.0 [facility] Basic metabolic 2000 panelon 01-03-2025 Anion gap [Moles/Vol] 12 mmol/L Normal 8-15 [facility] Comment on above: Order Comment: Speci men Type: BLOOD SPECIMENOrdering Facility: [facility] Address: [address] [place] [address] Performed By: #### 2 4321-2 ####[facility] LABCLIA [id number] [place] [address] [place] Calcium [Mass/Vol] 9.4 mg/dL Normal 8.5-10.2 [facility] Comment on above: Order Comment: Speci men Type: BLOOD SPECIMENOrdering Facility: [facility] Address: [address] [place] [address] Performed By: #### 2 4321-2 ####[facility] LABCLIA [id number] [place] [address] [place] Chloride [Moles/Vol] 93 mmol/L Low 98-107 [facility] Comment on above: Order Comment: Speci men Type: BLOOD SPECIMENOrdering Facility: [facility] Address: [address] [place] [address] Performed By: #### 2 4321-2 ####[facility] LABCLIA [id number] [place] [address] [place] CO2 [Moles/Vol] 21 mmol/L Low 22-30 [facility] Comment on above: Order Comment: Speci men Type: BLOOD SPECIMENOrdering Facility: [facility] Address: [address] [place] [id number] Performed By: #### 2 4321-2 ####[facility] LABIA [id number] [address] [place] Creatinine [Mass/Vol] 0.46 mg/dL Low 0.58-0.96 [facility] Comment on above: Order Comment: Speci men Type: BLOOD SPECIMENOrdering Facility: [facility] Address: [address] [place] [address] Performed By: #### 2 4321-2 ####[facility] LABIA [id number] [place] [address] [place] [facility] Creatinine and Glomerular filtration rate.predicted panel (S/P/Bld) 109 mL/min/1.73m??? Normal >=60 [facility] Comment on above: Order Comment: Speci men Type: BLOOD SPECIMENOrdering Facility: [facility] Address: [address] [place] [address] Result Comment: Gia mated Glomerular Filtration Rate [...] actual GFR. Performed By: #### 2 4321-2 ####[facility] LABIA [id number] [place] [id number] [place] Glucose [Mass/Vol] 142 mg/dL High 74-99 [facility] Comment on above: Order Comment: Speci men Type: BLOOD SPECIMENOrdering Facility: [facility] Address: [address] [place] [address] Result Comment: The [place] Diabetes Association (ADA) provides guidance for cutoff [...] Medical Care in Diabetes 2016, [place] Diabetes Association. Diabetes Care. 2016.39(Suppl 1). Performed By: #### 2 4321-2 ####[facility] LABIA [id number] [place] [address] [place] Potassium [Moles/Vol] 4.6 mmol/L Normal 3.7-5.1 [facility] Comment on above: Order Comment: Speci men Type: BLOOD SPECIMENOrdering Facility: [facility] Address: [address] [place] [address] Performed By: #### 2 4321-2 ####[facility] [id number] [place] [address] [place] Sodium [Moles/Vol] 126 mmol/L Low 136-144 [facility] Comment on above: Order Comment: Speci men Type: BLOOD SPECIMENOrdering Facility: [facility] Address: [address] [place] [address] Performed By: #### 2 4321-2 ####[facility] [id number] [place] [address] [place] Urea nitrogen [Mass/Vol] 12 mg/dL Normal 7-21 [facility] Comment on above: Order Comment: Speci men Type: BLOOD SPECIMENOrdering Facility: [facility] Address: [address] [place] [address] Performed By: #### 2 4321-2 ####[facility] [id number] [place] [address] [place] CBC W Auto Differential pane l (Bld)on 01-03-2025 Basophils (Bld) [#/Vol] 0.06 10*3/uL Normal <0.11 [facility] Comment on above: Order Comment: Speci men Type: BLOOD SPECIMENOrdering Facility: [facility] Address: [address] [place] [address] Performed By: #### 5 7021-8 ####[facility] LABCLIA [id number] [place] [id number] [place] Basophils/100 WBC (Bld) 0.6 % Normal [facility] Comment on above: Order Comment: Speci men Type: BLOOD SPECIMENOrdering Facility: [facility] Address: [address] [place] [address] Performed By: #### 5 7021-8 ####[facility] LABCLIA [id number] [address], [place] [address] [place] Differential cell count method Nom (Bld) Auto Normal [facility] Comment on above: Order Comment: Speci men Type: BLOOD SPECIMENOrdering Facility: [facility] Address: [address] [place] [address] Performed By: #### 5 7021-8 ####[facility] LABCLIA [id number] [place] [address] [place] Eosinophils (Bld) [#/Vol] 0.03 10*3/uL Normal <0.46 [facility] Comment on above: Order Comment: Speci men Type: BLOOD SPECIMENOrdering Facility: [facility] Address: [address] [place] [address] Performed By: #### 5 7021-8 ####[facility] LABCLIA [id number] [place] [address] [place] Eosinophils/100 WBC (Bld) 0.3 % Normal [facility] Comment on above: Order Comment: Speci men Type: BLOOD SPECIMENOrdering Facility: [facility] Address: [address] [place] [address] Performed By: #### 5 7021-8 ####[facility] LABCLIA [id number] [place] [address] [place] Erythrocyte distribution width (RBC) [Ratio] 14.2 % Normal 11.5-15.0 [facility] Comment on above: Order Comment: Speci men Type: BLOOD SPECIMENOrdering Facility: [facility] Address: [address] [place] [address] Performed By: #### 5 7021-8 ####[facility] LABIA [id number] [place] [address] [place] Hematocrit (Bld) [Volume fraction] 42.2 % Normal 36.0-46.0 [facility] Comment on above: Order Comment: Speci men Type: BLOOD SPECIMENOrdering Facility: [facility] Address: [address] [place] [address] Performed By: #### 5 7021-8 ####[facility] LABIA [id number] [place] [address] [place] Hemoglobin (Bld) [Mass/Vol] 13.5 g/dL Normal 11.5-15.5 [facility] Comment on above: Order Comment: Speci men Type: BLOOD SPECIMENOrdering Facility: [facility] Address: [address] [place] [address] Performed By: #### 5 7021-8 ####[facility] LABIA [id number] [place] [address] [place] Immature granulocytes (Bld) [#/Vol] 0.08 10*3/uL Normal <0.10 [facility] Comment on above: Order Comment: Speci men Type: BLOOD SPECIMENOrdering Facility: [facility] Address: [address] [place] [address] Performed By: #### 5 7021-8 ####[facility] LABIA [id number] [place] [address] [place] Immature granulocytes/100 WBC (Bld) 0.8 % Normal [facility] Comment on above: Order Comment: Speci men Type: BLOOD SPECIMENOrdering Facility: [facility] Address: [address] [place] [address] Performed By: #### 5 7021-8 ####[facility] LABCLIA [id number] [place] [address] [place] Lymphocytes (Bld) [#/Vol] 2.24 10*3/uL Normal 1.00-4.00 [facility] Comment on above: Order Comment: Speci men Type: BLOOD SPECIMENOrdering Facility: [facility] Address: [address] [place] [address] Performed By: #### 5 7021-8 ####[facility] LABCLIA [id number] [place] [address] [place] Lymphocytes/100 WBC (Bld) 21.2 % Normal [facility] Comment on above: Order Comment: Speci men Type: BLOOD SPECIMENOrdering Facility: [facility] Address: [address] [place] [address] Performed By: #### 5 7021-8 ####[facility] LABCLIA [id number] [place] [address] [place] MCH (RBC) [Entitic mass] 29.0 pg Normal 26.0-34.0 [facility] Comment on above: Order Comment: Speci men Type: BLOOD SPECIMENOrdering Facility: [facility] Address: [address] [place] [address] Performed By: #### 5 7021-8 ####[facility] LABCLIA [id number] [place] [address] [place] MCHC (RBC) [Mass/Vol] 32.0 g/dL Normal 30.5-36.0 [facility] Comment on above: Order Comment: Speci men Type: BLOOD SPECIMENOrdering Facility: [facility] Address: [address] [place] [address] Performed By: #### 5 7021-8 ####[facility] LABCLIA [id number] [address], [place] [address] [place] MCV (RBC) [Entitic vol] 90.6 fL Normal 80.0-100.0 [facility] Comment on above: Order Comment: Speci men Type: BLOOD SPECIMENOrdering Facility: [facility] Address: [address] [place] [address] Performed By: #### 5 7021-8 ####[facility] LABCLIA [id number] [place] [address] [place] Monocytes (Bld) [#/Vol] 0.84 10*3/uL Normal <0.87 [facility] Comment on above: Order Comment: Speci men Type: BLOOD SPECIMENOrdering Facility: [facility] Address: [address] [place] [address] Performed By: #### 5 7021-8 ####[facility] LABIA [id number] [place] [address] [place] Monocytes/100 WBC (Bld) 7.9 % Normal [facility] Comment on above: Order Comment: Speci men Type: BLOOD SPECIMENOrdering Facility: [facility] Address: [address] [place] [address] Performed By: #### 5 7021-8 ####[facility] LABCLIA [id number] [place] [address] [place] Neutrophils (Bld) [#/Vol] 7.33 10*3/uL Normal 1.45-7.50 [facility] Comment on above: Order Comment: Speci men Type: BLOOD SPECIMENOrdering Facility: [facility] Address: [address] [place] [address] Performed By: #### 5 7021-8 ####[facility] LABIA [id number] [id number] [address] [place] Neutrophils/100 WBC (Bld) 69.2 % Normal [facility] Comment on above: Order Comment: Speci men Type: BLOOD SPECIMENOrdering Facility: [facility] Address: [address] [place] [address] Performed By: #### 5 7021-8 ####[facility] LABCLIA [id number] [facility] [address] [place] Nucleated RBC (Bld) [#/Vol] 10*3/uL Normal <0.01 [facility] Comment on above: Order Comment: Speci men Type: BLOOD SPECIMENOrdering Facility: [facility] Address: [address] [place] [address] Performed By: #### 5 7021-8 ####[facility] LABCLIA [id number] [address], [place] [address] [place] Nucleated RBC/100 WBC (Bld) [Ratio] 0.0 /100 WBC Normal [facility] Comment on above: Order Comment: Speci men Type: BLOOD SPECIMENOrdering Facility: [facility] Address: [address] [place] [address] Performed By: #### 5 7021-8 ####[facility] LABCLIA [id number] [address], [place] [address] [place] Platelet mean volume (Bld) [Entitic vol] 11.0 fL Normal 9.0-12.7 [facility] Comment on above: Order Comment: Speci men Type: BLOOD SPECIMENOrdering Facility: [facility] Address: [address] [place] [address] Performed By: #### 5 7021-8 ####[facility] LABCLIA [id number] [place] [id number] [place] Platelets (Bld) [#/Vol] 177 10*3/uL Normal 150-400 [facility] Comment on above: Order Comment: Speci men Type: BLOOD SPECIMENOrdering Facility: [facility] Address: [address] [place] [address] Performed By: #### 5 7021-8 ####[facility] [id number] [place] [id number] [place] RBC (Bld) [#/Vol] 4.66 10*6/uL Normal 3.90-5.20 [facility] Comment on above: Order Comment: Speci men Type: BLOOD SPECIMENOrdering Facility: [facility] Address: [address] [place] [address] Performed By: #### 5 7021-8 ####[facility] [id number] [place] [address] [place] WBC (Bld) [#/Vol] 10.58 10*3/uL Normal 3.70-11.00 [facility] Comment on above: Order Comment: Speci men Type: BLOOD SPECIMENOrdering Facility: [facility] Address: [address] [place] [address] Performed By: #### 5 7021-8 ####[facility] [id number] [place] [address] [place] CNCOon 01-03-2025 CNCO Letter Text Normal [facility] CNPTOUTREACHon 01-03-2025 CNPTOUTREACH Normal [facility] HBV DNA Qn (S)on 01-03-2025 HBV DNA LUIS M+probe Ql Not detected Normal Not detected [facility] Comment on above: Order Comment: Speci men Type: BLOOD SPECIMENOrdering Facility: [facility] Address: [address] [place] [address] Performed By: #### 1 1258-1 ####[facility] [id number] [place] [address] [place] HBV core Ab Ser Qlon 025 HBV core Ab Ql (S) Negative Normal Negative [facility] Comment on above: Order Comment: Speci men Type: BLOOD SPECIMENOrdering Facility: [facility] Address: [address] [place] [address] Result Comment: No e vidence of current or past infection with Hepatitis B virus. Should recent infection be suspected, repeat testing may be considered 3-4 weeks after this draw. Performed By: #### 3 1204-1, 5195-3, 78059-6, 60711-4 ####[facility] LABCLIA [id number] [place] [id number] [place] HBV core IgM Ser Qlon 2024 HBV core IgM Ql (S) Positive Abnormal Negative [facility] Comment on above: Order Comment: Speci carlos Type: BLOOD SPECIMENOrdering Facility: [facility] Address: [address] [place] [address] Result Comment: The result suggests recent acute infection with Hepatitis B virus. Non-specific reactivity is not uncommon with this test. HBV core IgM antibody may also remain elevated for extended periods after an acute bout of infection. Clinical correlation required. Performed By: #### 3 1204-1, 5195-3, 19028-7, 97322-1 ####[facility] LABIA [id number] [place] [id number] [place] HBV e Ag SerPl Ql IAon 01-03 HBV e Ag IA Ql Negative Normal Negative [facility] Comment on above: Order Comment: Rand gonzalez Type: BLOOD SPECIMENOrdering Facility: [facility] Address: [address] [place] [address] Performed By: #### 1 3954-3, BE ####[facility] LABIA [id number] [place] [id number] [place] HBV surface Ab Ql (S)on 12-12 HBV surface Ab Qn (S) <8.00 Normal [facility] Comment on above: Order Comment: Rand gonzalez Type: BLOOD SPECIMENOrdering Facility: [facility] Address: [address] [place] [address] Result Comment: <8 m IU/mL: No serological evidence of immunity to Hepatitis B Virus.>/= 8 to <12 mIU/mL: No serological evidence of immunity to Hepatitis B Virus.>/= 12 mIU/mL: Consistent with serological evidence of immunity to Hepatitis B Virus. Performed By: #### 3 1204-1, 5195-3, 07652-1, 04444-7 ####[facility] LABCLIA [id number] [place] [address] [place] HBV surface Ab Ser Qlon 12-12 HBV surface Ab Ql (S) Negative Normal [facility] Comment on above: Order Comment: Speci men Type: BLOOD SPECIMENOrdering Facility: [facility] Address: [address] [place] [address] Result Comment: No s erological evidence of immunity to Hepatitis B Virus. Performed By: #### 3 1204-1, 5195-3, 73551-5, 13438-7 ####[facility] LABCLIA [id number] [address] [place] HBV surface Ag Ser Qlon 12-12 HBV surface Ag Ql (S) Negative Normal Negative [facility] Comment on above: Order Comment: Rand gonzalez Type: BLOOD SPECIMENOrdering Facility: [facility] Address: [address] [place] [address] Performed By: #### 3 1204-1, 5195-3, 61891-7, 45841-9 ####[facility] LABIA [id number] [place] [address] [place] HEP BE ANTIBODYon 01-03-2025 HBV e Ab IA Ql Negative Normal Negative [facility] Comment on above: Order Comment: Rand gonzalez Type: BLOOD SPECIMENOrdering Facility: [facility] Address: [address] [place] [address] Result Comment: This test should only be used in patients with a previously known and/or concurrent positive HBsAG result. Along with HBeAG test, Hepatitis B e antibody test is used for monitoring the natural history of Hepatitis B virus infection and prognostication. Clinical correlation is required. Performed By: #### 1 3954-3, AHBE ####[facility] LABCLIA [id number] [facility] [address] [address] [place] CNPNon 12-30-2024 CNPN Normal [facility] CNPTOUTREACHon 12-30-2024 CNPTOUTREACH Normal [facility] Basic metabolic 2000 panelon 12-28-2024 Anion gap [Moles/Vol] 15 mmol/L Normal 8-15 [facility] Comment on above: Order Comment: Speci men Type: BLOOD SPECIMENOrdering Facility: [facility] Address: [address] [place] [id number] Performed By: #### 2 4325-3, 88777-4 ####[facility] LABCLIA [id number] [address] [address] [place] Calcium [Mass/Vol] 9.3 mg/dL Normal 8.5-10.2 [facility] Comment on above: Order Comment: Speci men Type: BLOOD SPECIMENOrdering Facility: [facility] Address: [address] [place] [id number] Performed By: #### 2 4325-3, 09901-6 ####[facility] LABCLIA [id number] [address] [address] [place] Chloride [Moles/Vol] 94 mmol/L Low 98-107 [facility] Comment on above: Order Comment: Speci men Type: BLOOD SPECIMENOrdering Facility: [facility] Address: [address] [place] [id number] Performed By: #### 2 4325-3, 42906-0 ####[facility] LABCLIA [id number] [address] [address] [place] CO2 [Moles/Vol] 20 mmol/L Low 22-30 [facility] Comment on above: Order Comment: Speci men Type: BLOOD SPECIMENOrdering Facility: [facility] Address: [address] [place] [address] Performed By: #### 2 4325-3, 62277-6 ####[facility] LABIA [id number] [place] [id number] [place] Creatinine [Mass/Vol] 0.52 mg/dL Low 0.58-0.96 [facility] Comment on above: Order Comment: Speci men Type: BLOOD SPECIMENOrdering Facility: [facility] Address: [address] [place] [address] Performed By: #### 2 4325-3, 46554-3 ####[facility] [id number] [place] [address] [place] Creatinine and Glomerular filtration rate.predicted panel (S/P/Bld) 106 mL/min/1.73m??? Normal >=60 [facility] Comment on above: Order Comment: Rand men Type: BLOOD SPECIMENOrdering Facility: [facility] Address: [address] [place] [address] Result Comment: Gia mated Glomerular Filtration Rate [...] actual GFR. Performed By: #### 2 4325-3, ####[facility] [id number] [place] [id number] [place] Glucose [Mass/Vol] 196 mg/dL High 74-99 [facility] Comment on above: Order Comment: Speci men Type: BLOOD SPECIMENOrdering Facility: [facility] Address: [address] [place] [address] Result Comment: The [place] Diabetes Association (ADA) provides guidance for cutoff [...] Medical Care in Diabetes 2016, [place] Diabetes Association. Diabetes Care. 2016.39(Suppl 1). Performed By: #### 2 5-3, 85741-7 ####[facility] LABCLIA [id number] [address] [address] [place] Potassium [Moles/Vol] 4.4 mmol/L Normal 3.7-5.1 [facility] Comment on above: Order Comment: Speci men Type: BLOOD SPECIMENOrdering Facility: [facility] Address: [address] [place] [address] Performed By: #### 2 3, ####[facility] LABCLIA [id number] [address] [address] [place] Sodium [Moles/Vol] 129 mmol/L Low 136-144 [facility] Comment on above: Order Comment: Speci men Type: BLOOD SPECIMENOrdering Facility: [facility] Address: [address] [place] [address] Performed By: #### 2 3, ####[facility] LABCLIA [id number] [facility] [address] [address] [place] Urea nitrogen [Mass/Vol] 13 mg/dL Normal 7-21 [facility] Comment on above: Order Comment: Speci men Type: BLOOD SPECIMENOrdering Facility: [facility] Address: [address] [place] [address] Performed By: #### 2 3, 65969-7 ####[facility] LABCLIA [id number] [address] [address] [place] CBC W Auto Differential pane l (Bld)on 12-28-2024 Basophils (Bld) [#/Vol] 0.07 10*3/uL Normal <0.11 [facility] Comment on above: Order Comment: Speci men Type: BLOOD SPECIMENOrdering Facility: [facility] Address: [address] [place] [address] Performed By: #### 5 7021-8 ####[facility] LABCLIA [id number] [facility] [address] [place] Basophils/100 WBC (Bld) 0.6 % Normal [facility] Comment on above: Order Comment: Speci men Type: BLOOD SPECIMENOrdering Facility: [facility] Address: [address] [place] [address] Performed By: #### 5 7021-8 ####[facility] LABCLIA [id number] [place] [address] [place] Differential cell count method Nom (Bld) Auto Normal [facility] Comment on above: Order Comment: Speci men Type: BLOOD SPECIMENOrdering Facility: [facility] Address: [address] [place] [address] Performed By: #### 5 7021-8 ####[facility] LABCLIA [id number] [place] [address] [place] Eosinophils (Bld) [#/Vol] 0.03 10*3/uL Normal <0.46 [facility] Comment on above: Order Comment: Speci men Type: BLOOD SPECIMENOrdering Facility: [facility] Address: [address] [place] [address] Performed By: #### 5 7021-8 ####[facility] LABCLIA [id number] [facility] [address] [place] Eosinophils/100 WBC (Bld) 0.3 % Normal [facility] Comment on above: Order Comment: Speci men Type: BLOOD SPECIMENOrdering Facility: [facility] Address: [address] [place] [address] Performed By: #### 5 7021-8 ####[facility] LABIA [id number] [place] [address] [place] Erythrocyte distribution width (RBC) [Ratio] 14.1 % Normal 11.5-15.0 [facility] Comment on above: Order Comment: Speci men Type: BLOOD SPECIMENOrdering Facility: [facility] Address: [address] [place] [address] Performed By: #### 5 7021-8 ####[facility] LABIA [id number] [place] [address] [place] Hematocrit (Bld) [Volume fraction] 42.9 % Normal 36.0-46.0 [facility] Comment on above: Order Comment: Speci men Type: BLOOD SPECIMENOrdering Facility: [facility] Address: [address] [place] [address] Performed By: #### 5 7021-8 ####[facility] LABIA [id number] [place] [address] [place] Hemoglobin (Bld) [Mass/Vol] 14.1 g/dL Normal 11.5-15.5 [facility] Comment on above: Order Comment: Speci men Type: BLOOD SPECIMENOrdering Facility: [facility] Address: [address] [place] [address] Performed By: #### 5 7021-8 ####[facility] LABCLIA [id number] [place] [address] [place] Immature granulocytes (Bld) [#/Vol] 0.12 10*3/uL High <0.10 [facility] Comment on above: Order Comment: Speci men Type: BLOOD SPECIMENOrdering Facility: [facility] Address: [address] [place] [address] Performed By: #### 5 7021-8 ####[facility] LABCLIA [id number] [place] [address] [place] Immature granulocytes/100 WBC (Bld) 1.0 % Normal [facility] Comment on above: Order Comment: Speci men Type: BLOOD SPECIMENOrdering Facility: [facility] Address: [address] [place] [address] Performed By: #### 5 7021-8 ####[facility] LABIA [id number] [place] [address] [place] Lymphocytes (Bld) [#/Vol] 2.70 10*3/uL Normal 1.00-4.00 [facility] Comment on above: Order Comment: Speci men Type: BLOOD SPECIMENOrdering Facility: [facility] Address: [address] [place] [address] Performed By: #### 5 7021-8 ####[facility] LABIA [id number] [place] [address] [place] Lymphocytes/100 WBC (Bld) 23.1 % Normal [facility] Comment on above: Order Comment: Speci men Type: BLOOD SPECIMENOrdering Facility: [facility] Address: [address] [place] [address] Performed By: #### 5 7021-8 ####[facility] LABIA [id number] [place] [address] [place] MCH (RBC) [Entitic mass] 29.3 pg Normal 26.0-34.0 [facility] Comment on above: Order Comment: Speci men Type: BLOOD SPECIMENOrdering Facility: [facility] Address: [address] [place] [address] Performed By: #### 5 7021-8 ####[facility] LABIA [id number] [place] [address] [place] MCHC (RBC) [Mass/Vol] 32.9 g/dL Normal 30.5-36.0 [facility] Comment on above: Order Comment: Speci men Type: BLOOD SPECIMENOrdering Facility: [facility] Address: [address] [place] [address] Performed By: #### 5 7021-8 ####[facility] LABCLIA [id number] [place] [address] [place] MCV (RBC) [Entitic vol] 89.2 fL Normal 80.0-100.0 [facility] Comment on above: Order Comment: Speci men Type: BLOOD SPECIMENOrdering Facility: [facility] Address: [address] [place] [address] Performed By: #### 5 7021-8 ####[facility] LABIA [id number] [place] [address] [place] Monocytes (Bld) [#/Vol] 0.56 10*3/uL Normal <0.87 [facility] Comment on above: Order Comment: Speci men Type: BLOOD SPECIMENOrdering Facility: [facility] Address: [address] [place] [address] Performed By: #### 5 7021-8 ####[facility] LABIA [id number] [place] [address] [place] Monocytes/100 WBC (Bld) 4.8 % Normal [facility] Comment on above: Order Comment: Speci men Type: BLOOD SPECIMENOrdering Facility: [facility] Address: [address] [place] [address] Performed By: #### 5 7021-8 ####[facility] LABIA [id number] [place] [id number] [place] Neutrophils (Bld) [#/Vol] 8.22 10*3/uL High 1.45-7.50 [facility] Comment on above: Order Comment: Speci men Type: BLOOD SPECIMENOrdering Facility: [facility] Address: [address] [place] [address] Performed By: #### 5 7021-8 ####[facility] LABCLIA [id number] [address] [address] [place] Neutrophils/100 WBC (Bld) 70.2 % Normal [facility] Comment on above: Order Comment: Speci men Type: BLOOD SPECIMENOrdering Facility: [facility] Address: [address] [place] [address] Performed By: #### 5 7021-8 ####[facility] LABCLIA [id number] [address], [place] [address] [place] Nucleated RBC (Bld) [#/Vol] 10*3/uL Normal <0.01 [facility] Comment on above: Order Comment: Speci men Type: BLOOD SPECIMENOrdering Facility: [facility] Address: [address] [place] [address] Performed By: #### 5 7021-8 ####[facility] LABCLIA [id number] [place] [address] [place] Nucleated RBC/100 WBC (Bld) [Ratio] 0.0 /100 WBC Normal [facility] Comment on above: Order Comment: Speci men Type: BLOOD SPECIMENOrdering Facility: [facility] Address: [address] [place] [address] Performed By: #### 5 7021-8 ####[facility] LABCLIA [id number] [place] [address] [place] Platelet mean volume (Bld) [Entitic vol] 11.9 fL Normal 9.0-12.7 [facility] Comment on above: Order Comment: Speci men Type: BLOOD SPECIMENOrdering Facility: [facility] Address: [address] [place] [address] Performed By: #### 5 7021-8 ####[facility] LABCLIA [id number] [place] [id number] [place] Platelets (Bld) [#/Vol] 144 10*3/uL Low 150-400 [facility] Comment on above: Order Comment: Speci men Type: BLOOD SPECIMENOrdering Facility: [facility] Address: [address] [place] [address] Performed By: #### 5 7021-8 ####[facility] LABCLIA [id number] [place] [address] [place] RBC (Bld) [#/Vol] 4.81 10*6/uL Normal 3.90-5.20 [facility] Comment on above: Order Comment: Speci men Type: BLOOD SPECIMENOrdering Facility: [facility] Address: [address] [place] [address] Performed By: #### 5 7021-8 ####[facility] LABIA [id number] [place] [address] [place] WBC (Bld) [#/Vol] 11.70 10*3/uL High 3.70-11.00 [facility] Comment on above: Order Comment: Speci men Type: BLOOD SPECIMENOrdering Facility: [facility] Address: [address] [place] [address] Performed By: #### 5 7021-8 ####[facility] LABIA [id number] [place] [address] [place] CNOVon 12-28-2024 CNOV Normal [facility] HAV IgM Ser Qlon 12-28-2024 HAV IgM Ql (S) Negative Normal Negative [facility] Comment on above: Order Comment: Speci men Type: BLOOD SPECIMENOrdering Facility: [facility] Address: [address] [place] [address] Result Comment: No e vidence of recent infection with Hepatitis A virus. Performed By: #### 3 1204-1, 5195-3, 32145-9 ####[facility] LABIA [id number] [place] [address] [place] HBV core IgM Ser Qlon 2024 HBV core IgM Ql (S) Positive Abnormal Negative [facility] Comment on above: Order Comment: Speci carlos Type: BLOOD SPECIMENOrdering Facility: [facility] Address: [address] [place] [address] Result Comment: The result suggests recent acute infection with Hepatitis B virus. Non-specific reactivity is not uncommon with this test. HBV core IgM antibody may also remain elevated for extended periods after an acute bout of infection. Clinical correlation required. Performed By: #### 3 1204-1, 5195-3, 93931-3 ####[facility] LABCLIA [id number] [place] [address] [place] HBV surface Ag Ser Qlon 12-11 HBV surface Ag Ql (S) Negative Normal Negative [facility] Comment on above: Order Comment: Rand [facility] Type: BLOOD SPECIMENOrdering Facility: [facility] Address: [address] [place] [address] Performed By: #### 3 1204-1, 5195-3, 20121-4 ####[facility] LABIA [id number] [place] [address] [place] HCV RNA LUIS M+probe Qnon 12-28 HCV RNA LUIS M+probe Ql Not detected Normal Not detected [facility] Comment on above: Order Comment: Rand [facility] Type: BLOOD SPECIMENOrdering Facility: [facility] Address: [address] [place] [address] Performed By: #### 1 1011-4 ####[facility] LABCLIA [id number] [place] [id number] [place] Hepatic function 2000 panelo n 12-28-2024 Albumin [Mass/Vol] 4.3 g/dL Normal 3.9-4.9 [facility] Comment on above: Order Comment: Rand [facility] Type: BLOOD SPECIMENOrdering Facility: [facility] Address: [address] [place] [address] Performed By: #### 2 4325-3, 62317-8 ####[facility] LABCLIA [id number] [address] [address] [place] ALP [Catalytic activity/Vol] 123 U/L Normal 34-123 [facility] Comment on above: Order Comment: Speci men Type: BLOOD SPECIMENOrdering Facility: [facility] Address: [address] [place] [address] Performed By: #### 2 4325-3, 50134-9 ####[facility] LABCLIA [id number] [place] [id number] [place] ALT [Catalytic activity/Vol] 32 U/L Normal 7-38 [facility] Comment on above: Order Comment: Speci men Type: BLOOD SPECIMENOrdering Facility: [facility] Address: [address] [place] [address] Performed By: #### 2 4325-3, 39506-3 ####[facility] LABCLIA [id number] [place] [address] [place] AST [Catalytic activity/Vol] 17 U/L Normal 13-35 [facility] Comment on above: Order Comment: Speci men Type: BLOOD SPECIMENOrdering Facility: [facility] Address: [address] [place] [address] Performed By: #### 2 4325-3, 93211-2 ####[facility] LABCLIA [id number] [place] [id number] [place] Bilirubin [Mass/Vol] 0.2 mg/dL Normal 0.2-1.3 [facility] Comment on above: Order Comment: Speci men Type: BLOOD SPECIMENOrdering Facility: [facility] Address: [address] [place] [address] Performed By: #### 2 4325-3, 11157-7 ####[facility] LABCLIA [id number] [place] [id number] [place] Bilirubin.conjugated [Mass/Vol] mg/dL Normal <0.3 [facility] Comment on above: Order Comment: Speci men Type: BLOOD SPECIMENOrdering Facility: [facility] Address: [address] [place] [id number] Performed By: #### 2 4325-3, 96257-0 ####[facility] LABCLIA [id number] [address] [address] [place] Protein [Mass/Vol] 7.5 g/dL Normal 6.3-8.0 [facility] Comment on above: Order Comment: Speci men Type: BLOOD SPECIMENOrdering Facility: [facility] Address: [address] [place] [address] Performed By: #### 2 4325-3, 21404-6 ####[facility] LABCLIA [id number] [address] [address] [place] Culture, Blood (WB)on 2024 CUB Blood cultures x2, f rom two different sites No growth in 5 days. Normal [facility] Comment on above: Performed By: #### L 100.0100 #### [facility] [address] [place] [address]. [place], [place], [address] Performed By: #### L 500.4050, L501.4020, L501.2450, L100.0500 #### [facility] [address] [place], [place], [address] Urine Cultureon 12-23-2024 URC Mixed Gram Pos Gram Neg Org [place] Count <1000 MIXC Mixed contaminants. Submit a new specimen if indicated. Normal [facility] Comment on above: Performed By: #### M 100.678 #### [facility] [address] [place], [address] 12 Lead EKGon 12-21-2024 12 Lead EKG [facility] Cardiovascular Services [address] [place] [address] 12 Lead EKG 12/21/24 0857 MR#: [id number] Acct: [id number] Name: BRENDA LE Rep #: [id number] : 1965 59 From: Gary Bose MD [...] Abnormal ECG Confirmed by TAMMY SANDERS, GLORIA ([id number]), editor map CRISTAL OTT ([id number]) on 12/27/2024 11:14:51 AM Referred By: Confirmed By: GLORIA BOSE MD 12/27/24 1114 Date Gary Bose MD CC: ESEQUIEL Salmon; Dr. Babak Garcia, Signed Normal [facility] Absolute lymphocyte countOrd ered By: Babak Garcia on 12-21-2024 Lymphocytes Auto (Unsp spec) [#/Vol] 1.06 10*3/uL 0.83-4.51 [facility] Absolute neutrophil countOrd ered By: Babak Garcia on 12-21-2024 Neutrophils (Bld) [#/Vol] 10.6 10*3/uL High 2.0-7.7 [facility] Activated partial thrombopla stin time (aPTT) in platelet poor plasma by coagulation aOrdered By: Babak Garcia on 12-21-2024 aPTT Coag (PPP) [Time] 35.4 s 24.1-36.[address] [facility] Anion gap in Serum or Plasma Ordered By: Babak Garcia on 12-21-2024 Anion gap [Moles/Vol] 11 mmol/L 5-15 [facility] Automated blood erythrocyte countOrdered By: Babak Garcia on 12-21-2024 RBC (Bld) [#/Vol] 4.30 10*6/uL Normal 4.2-5.4 [facility] Comment on above: Performed By: #### L 500.2500, L100.0100 #### [facility] [address] [place], [address] Automated blood hematocrit ( percentage)Ordered By: Babak Garcia on 12-21-2024 Hematocrit (Bld) [Volume fraction] 38.1 % Normal 37-47 [facility] Comment on above: Performed By: #### L 500.2500, L100.0100 #### [facility] [address] [place], [address] Automated lymphocyte count a s percentage of total leukocytesOrdered By: Babak Garcia on 12-21-2024 Lymphocytes/100 WBC (Bld) 8.6 % Low 19-41 [facility] Comment on above: Performed By: #### L 500.2500, L100.0100 #### [facility] [address] [place], [address] Lymphocytes/100 WBC Auto (Unsp spec) 8.6 % Low 19-41 [facility] BUN/creatinine ratioOrdered By: Babak Garcia on 12-21-2024 Urea nitrogen/Creatinine [Mass ratio] 19.2 mg/mg 10-20 [facility] Basophil percentageOrdered B y: Babak Garcia on 12-21-2024 Basophils/100 WBC (Bld) 0.2 % Normal 0-1 [facility] Comment on above: Performed By: #### L 500.2500, L100.0100 #### [facility] [address] [place], [address] Bilirubin Test strip Ql (U)O rdered By: Babak Garcia on 12-21-2024 Bilirubin Ql (U) Negative Negative [facility] Bilirubin, totalOrdered By: Babak Garcia on 12-21-2024 Bilirubin [Mass/Vol] 0.29 mg/dL Normal 0.00-1.30 [facility] Comment on above: Performed By: #### L 500.2500, L100.0100 #### [facility] [address] [place], [address] Blood cultureOrdered By: Rogelio Garcia on 12-21-2024 Bacteria identified Cx Nom (Bld) No growth in 5 days. [facility] Bacteria identified Cx Nom (Bld) No growth in 5 days. [facility] CBC W/Diff, Automatedon 12-11 Absolute Lymph 1.06 X10 3/uL Normal 0.83-4.51 [facility] Comment on above: Performed By: #### L 500.2500, L100.0100 #### [facility] [address] [place], [address] Absolute Neut 10.6 X10 3/uL High 2.0-7.7 [facility] Comment on above: Performed By: #### L 500.2500, L100.0100 #### [facility] [address] [place], [address] IG% 0.400 Normal 0.0-0.9 [facility] Comment on above: Result Comment: IG% - Immature Granulocytes (promyelocytes, myelocytes and metamyelocytes) > 1% indicates that a LEFT SHIFT is Present. Performed By: #### L 500.2500, L100.0100 #### [facility] [address] [place], [address] Nucleated RBC (Bld) [#/Vol] 0 10*3/uL Normal 0-5 [facility] Comment on above: Performed By: #### L 500.2500, L100.0100 #### [facility] [address] [place], [address] RDW SD 46.4 fl High 35.1-43.9 [facility] Comment on above: Performed By: #### L 500.2500, L100.0100 #### [facility] [address] [place], [address] Absolute Lymph 1.05 X10 3/uL Normal 0.83-4.51 [facility] Comment on above: Result Comment: This specimen has been REJECTED due to Laboratory criteria: Contaminated/Leaked. juliocesar has been notified of need of recollection. 12/21/24 0957 Issac Chawla White Performed By: #### L 100.0100 #### [facility] [address] [place], [address] Absolute Neut 10.3 X10 3/uL High 2.0-7.7 [facility] Comment on above: Result Comment: This specimen has been REJECTED due to Laboratory criteria: Contaminated/Leaked. rishabhkathy has been notified of need of recollection. 12/21/2457 Issac Chawla White Performed By: #### L 100.0100 #### [facility] [address] [facility] [address] BASO# 0.05 X10 3/uL Normal [facility] Comment on above: Result Comment: This specimen has been REJECTED due to Laboratory criteria: Contaminated/Leaked. rishabhkathy has been notified of need of recollection. 12/21/2457 Issac Chawla White Performed By: #### L 100.0100 #### [facility] [place], [address] Basophils/100 WBC (Bld) 0.4 % Normal 0-1 [facility] Comment on above: Result Comment: This specimen has been REJECTED due to Laboratory criteria: Contaminated/Leaked. rishabhyefrie has been notified of need of recollection. 12/21/24 0957 Issac Chawla White Performed By: #### L 100.0100 #### [facility] [address] [place], [address] EOS# 0.01 X10 3/uL Normal [facility] Comment on above: Result Comment: This specimen has been REJECTED due to Laboratory criteria: Contaminated/Leaked. juliocesar has been notified of need of recollection. 12/21/24956 Issac Chawla White Performed By: #### L 100.0100 #### [facility] [address] [place], [place], [address] Erythrocyte distribution width (RBC) [Ratio] 14.4 % Normal 11.6-14.6 [facility] Comment on above: Result Comment: This specimen has been REJECTED due to Laboratory criteria: Contaminated/Leaked. juliocesar has been notified of need of recollection. 12/21/24956 Issac Chawla White Performed By: #### L 100.0100 #### [facility] [address] [place], [place], [id number] (180) Hematocrit (Bld) [Volume fraction] 40.3 % Normal 37-47 [facility] Comment on above: Result Comment: This specimen has been REJECTED due to Laboratory criteria: Contaminated/Leaked. juliocesar has been notified of need of recollection. 12/21/24956 Issac Chawla White Performed By: #### L 100.0100 #### [facility] [address] [place], [place], [id number] (054) Hemoglobin (Bld) [Mass/Vol] 13.3 g/dL Normal 12.0-15.0 [facility] Comment on above: Result Comment: This specimen has been REJECTED due to Laboratory criteria: Contaminated/Leaked. juliocesar has been notified of need of recollection. 12/21/24956 Issac Chawla White Performed By: #### L 100.0100 #### [facility] [address] [place], [address] IG# 0.070 X10 3/uL High 0.0-0.0 [facility] Comment on above: Result Comment: This specimen has been REJECTED due to Laboratory criteria: Contaminated/Leaked. juliocesar has been notified of need of recollection. 12/21/24956 Issac Chawla White Performed By: #### L 100.0100 #### [facility] [address] [place], [address] IG% 0.600 Normal 0.0-0.9 [facility] Comment on above: Result Comment: This specimen has been REJECTED due to Laboratory criteria: Contaminated/Leaked. ujliocesar has been notified of need of recollection. 12/21/24956 Issac L White IG% - Immature Granulocytes (promyelocytes, myelocytes and metamyelocytes) > 1% indicates that a LEFT SHIFT is Present. Performed By: #### L 100.0100 #### [facility] [address] [place], [address] LYMPH# 1.05 X10 3/ul Normal 0.83-4.51 [facility] Comment on above: Result Comment: This specimen has been REJECTED due to Laboratory criteria: Contaminated/Leaked. juliocesar has been notified of need of recollection. 12/21/24956 Issac L White Performed By: #### L 100.0100 #### [facility] [address] [place], [address] Lymphocytes/100 WBC (Bld) 8.7 % Low 19-41 [facility] Comment on above: Result Comment: This specimen has been REJECTED due to Laboratory criteria: Contaminated/Leaked. juliocesar has been notified of need of recollection. 12/21/24956 Issac L White Performed By: #### L 100.0100 #### [facility] [address] [place], [address] MCH (RBC) [Entitic mass] 29.2 pg Normal 27.0-32.0 [facility] Comment on above: Result Comment: This specimen has been REJECTED due to Laboratory criteria: Contaminated/Leaked. juliocesar has been notified of need of recollection. 12/21/24956 Issac L White Performed By: #### L 100.0100 #### [facility] [address] [place], [address] MCHC (RBC) [Mass/Vol] 33.0 g/dL Normal 32-36 [facility] Comment on above: Result Comment: This specimen has been REJECTED due to Laboratory criteria: Contaminated/Leaked. juliocesar has been notified of need of recollection. 12/21/24956 Issac Chawla White Performed By: #### L 100.0100 #### [facility] [address] [place], [address] MCV (RBC) [Entitic vol] 88.4 fL Normal 81-99 [facility] Comment on above: Result Comment: This specimen has been REJECTED due to Laboratory criteria: Contaminated/Leaked. rishabhkathy has been notified of need of recollection. 12/21/24956 Issac Chawla White Performed By: #### L 100.0100 #### [facility] [address] [place], [address] MONO # 0.49 X10 3/uL Normal [facility] Comment on above: Result Comment: This specimen has been REJECTED due to Laboratory criteria: Contaminated/Leaked. juliocesar has been notified of need of recollection. 12/21/24956 Issac Chawla White Performed By: #### L 100.0100 #### [facility] [address] [place], [address] Monocytes/100 WBC (Bld) 4.1 % Normal 0-10 [facility] Comment on above: Result Comment: This specimen has been REJECTED due to Laboratory criteria: Contaminated/Leaked. [email or web address] has been notified of need of recollection. 12/21/24956 Issac Chawla White Performed By: #### L 100.0100 #### [facility] [address] [place], [address] Neutrophil # 10.34 X10 3/uL High 2.7-7.7 [facility] Comment on above: Result Comment: This specimen has been REJECTED due to Laboratory criteria: Contaminated/Leaked. rishabhkathy has been notified of need of recollection. 12/21/24956 Issac Chawla White Performed By: #### L 100.0100 #### [facility] [address] [place], [address] Neutrophils/100 WBC (Bld) 86.1 % High 47-70 [facility] Comment on above: Result Comment: This specimen has been REJECTED due to Laboratory criteria: Contaminated/Leaked. juliocesar has been notified of need of recollection. 12/21/2457 Issac L White Performed By: #### L 100.0100 #### [facility] [address] [place], [address] Nucleated RBC (Bld) [#/Vol] 0 10*3/uL Normal 0-5 [facility] Comment on above: Result Comment: This specimen has been REJECTED due to Laboratory criteria: Contaminated/Leaked. juliocesar has been notified of need of recollection. 12/21/2457 Issac L White Performed By: #### L 100.0100 #### [facility] [address] [place], [address] Platelet mean volume (Bld) [Entitic vol] 9.9 fL Normal 6.2-12.0 [facility] Comment on above: Result Comment: This specimen has been REJECTED due to Laboratory criteria: Contaminated/Leaked. juliocesar has been notified of need of recollection. 12/21/2457 Issac L White Performed By: #### L 100.0100 #### [facility] [address] [place], [address] Platelets (Bld) [#/Vol] 201 10*3/uL Normal 150-450 [facility] Comment on above: Result Comment: This specimen has been REJECTED due to Laboratory criteria: Contaminated/Leaked. juliocesar has been notified of need of recollection. 12/21/24 0957 Issac L White Performed By: #### L 100.0100 #### [facility] [address] [place], [address] RBC (Bld) [#/Vol] 4.56 10*6/uL Normal 4.2-5.4 [facility] Comment on above: Result Comment: This specimen has been REJECTED due to Laboratory criteria: Contaminated/Leaked. juliocesar has been notified of need of recollection. 12/21/24 0957 Issac Chawla Josh Performed By: #### L 100.0100 #### [facility] [address] [place], [address] RDW SD 46.5 fl High 35.1-43.9 [facility] Comment on above: Result Comment: This specimen has been REJECTED due to Laboratory criteria: Contaminated/Leaked. juliocesar has been notified of need of recollection. 12/21/24 0957 Issac Chawla Josh Performed By: #### L 100.0100 #### [facility] [address] [place], [address] WBC (Bld) [#/Vol] 12.0 10*3/uL High 4.4-11.0 [facility] Comment on above: Result Comment: This specimen has been REJECTED due to Laboratory criteria: Contaminated/Leaked. juliocesar has been notified of need of recollection. 12/21/24 0957 Issac Chawla Josh Performed By: #### L 100.0100 #### [facility] [address] [place], [address] Carbon dioxide, total [Moles /volume] in Central venous bloodOrdered By: Babak Garcia on 12-21-2024 CO2 [Moles/Vol] 22.6 mmol/L Normal 21.0-32.0 [facility] Comment on above: Performed By: #### L 500.2500, L100.0100 #### [facility] [address] [place], [address] Chest PA and Lateralon 12-21 Chest PA and Lateral [facility] Imaging Services [address] [place] [address] Chest PA and Lateral MR#: [id number] Acct: [id number] Name: BRENDA LE Rep #: [id number] : 1965 F 59 From: Ana Lilia Carlos MD PCP: ESEQUIEL Headley Status: REG ER Study: Chest PA and Lateral Date of Exam: 12/21/24 Exam# [id number] Ordering Dr: Babak Garcia DO EXAM: XR [...] Pulmonary venous congestion. Reading Location: [facility] CC: MACHINE TOOL DESIGNER Shelia Salmon; Dr. Babak Garcia DO Recruiter Specialist: Signed Normal [facility] Chloride assayOrdered By: Rory Garcai on 12-21-2024 Chloride [Moles/Vol] 102 mmol/L Normal 98-108 [facility] Comment on above: Performed By: #### L 500.2500, L100.0100 #### [facility] [address] [place], [address] Comprehensive Metabolic Prof ilon 12-21-2024 ALK PHOS 108 U/L High 35-104 [facility] Comment on above: Performed By: #### L 500.2500, L100.0100 #### [facility] [address] [facility] [address] BUN/CRE 19.2 RATIO Normal 10-20 [facility] Comment on above: Performed By: #### L 500.2500, L100.0100 #### [facility] [address] [place], [address] ECRCL 127.81 ml/min Normal 50-250 [facility] Comment on above: Performed By: #### L 500.2500, L100.0100 #### [facility] [address] [place], [address] GAP 11 Normal 5-15 [facility] Comment on above: Performed By: #### L 500.2500, L100.0100 #### [facility] [address] [place], [address] T PROT 6.3 g/dL Normal 5.9-8.4 [facility] Comment on above: Performed By: #### L 500.2500, L100.0100 #### [facility] [address] [place], [address] ALB Normal 3.4-4.8 [facility] Comment on above: Result Comment: This specimen has been REJECTED due to Laboratory criteria: Contaminated/Leaked. juliocesar has been notified of need of recollection. 12/21/24957 Issac Moreno Performed By: #### L 100.0100 #### [facility] [address] [place], [address] ALK PHOS Normal 35-104 [facility] Comment on above: Result Comment: This specimen has been REJECTED due to Laboratory criteria: Contaminated/Leaked. juliocesar has been notified of need of recollection. 12/21/24957 Issac Moreno Performed By: #### L 100.0100 #### [facility] [address] [place], [address] ALT Normal <=34 [facility] Comment on above: Result Comment: This specimen has been REJECTED due to Laboratory criteria: Contaminated/Leaked. juliocesar has been notified of need of recollection. 12/21/24957 Issac Moreno Performed By: #### L 100.0100 #### [facility] [address] [place], [address] AST Normal <=31 [facility] Comment on above: Result Comment: This specimen has been REJECTED due to Laboratory criteria: Contaminated/Leaked. juliocesar has been notified of need of recollection. 12/21/24957 Issac Moreno Performed By: #### L 100.0100 #### [facility] [address] [place], [address] BUN Normal 4-19 [facility] Comment on above: Result Comment: This specimen has been REJECTED due to Laboratory criteria: Contaminated/Leaked. juliocesar has been notified of need of recollection. 12/21/24957 Issac Chawla White Performed By: #### L 100.0100 #### [facility] [address] [facility] [address] BUN/CRE Normal 10-20 [facility] Comment on above: Result Comment: This specimen has been REJECTED due to Laboratory criteria: Contaminated/Leaked. juliocesar has been notified of need of recollection. 12/21/24957 Issac Chawla White Performed By: #### L 100.0100 #### [facility] [address] [facility] [address] Calcium Normal 7.6-11.0 [facility] Comment on above: Result Comment: This specimen has been REJECTED due to Laboratory criteria: Contaminated/Leaked. loryefrie has been notified of need of recollection. 12/21/24957 Issac L White Performed By: #### L 100.0100 #### [facility] [address] [facility] [address] CL Normal 98-108 [facility] Comment on above: Result Comment: This specimen has been REJECTED due to Laboratory criteria: Contaminated/Leaked. juliocesar has been notified of need of recollection. 12/21/24957 Issac L White Performed By: #### L 100.0100 #### [facility] [address] [facility] [address] CO2 Normal 21.0-32.0 [facility] Comment on above: Result Comment: This specimen has been REJECTED due to Laboratory criteria: Contaminated/Leaked. juliocesar has been notified of need of recollection. 12/21/24957 Issac Chawla White Performed By: #### L 100.0100 #### [facility] [address] [place], [address] CREAT,SERUM Normal 0.70-1.20 [facility] Comment on above: Result Comment: This specimen has been REJECTED due to Laboratory criteria: Contaminated/Leaked. juliocesar has been notified of need of recollection. 12/21/2458 Issac Chawla White Performed By: #### L 100.0100 #### [facility] [address] [facility] [address] eGFR Normal >60 [facility] Comment on above: Result Comment: This specimen has been REJECTED due to Laboratory criteria: Contaminated/Leaked. loryefrie has been notified of need of recollection. 12/21/2458 Issac L White Performed By: #### L 100.0100 #### [facility] [address] [facility] [address] GAP Normal 5-15 [facility] Comment on above: Result Comment: This specimen has been REJECTED due to Laboratory criteria: Contaminated/Leaked. lorilie has been notified of need of recollection. 12/21/24957 Issac L White Performed By: #### L 100.0100 #### [facility] [address] [facility] [address] GLU Normal 70-99 [facility] Comment on above: Result Comment: This specimen has been REJECTED due to Laboratory criteria: Contaminated/Leaked. loryefrie has been notified of need of recollection. 12/21/2458 Issac L White Performed By: #### L 100.0100 #### [facility] [address] [place], [address] Potassium Normal 3.3-5.1 [facility] Comment on above: Result Comment: This specimen has been REJECTED due to Laboratory criteria: Contaminated/Leaked. veronikae has been notified of need of recollection. 12/21/24957 Issac L White Performed By: #### L 100.0100 #### [facility] [address] [facility] [address] T BILI Normal 0.00-1.30 [facility] Comment on above: Result Comment: This specimen has been REJECTED due to Laboratory criteria: Contaminated/Leaked. juliocesar has been notified of need of recollection. 12/21/24 0958 Issac Moreno Performed By: #### L 100.0100 #### [facility] [address] [place], [address] T PROT Normal 5.9-8.4 [facility] Comment on above: Result Comment: This specimen has been REJECTED due to Laboratory criteria: Contaminated/Leaked. juliocesar has been notified of need of recollection. 12/21/24 0958 Issac Moreno Performed By: #### L 100.0100 #### [facility] [address] [facility] [address] Comprehensive Metabolic Profil Normal 133-145 [facility] Comment on above: Result Comment: This specimen has been REJECTED due to Laboratory criteria: Contaminated/Leaked. juliocesar has been notified of need of recollection. 12/21/24 0958 Issac Moreno Performed By: #### L 100.0100 #### [facility] [address] [place], [address] Comprehensive Metabolic Prof ilOrdered By: Babak Garcia on 12-21-2024 AST [Catalytic activity/Vol] 28 U/L Normal <=31 [facility] Comment on above: Hemolysis present, R esults could be affected. Result Comment: Hemo lysis present, Results??could be affected. ?? Performed By: #### L 500.2500, L100.0100 #### [facility] [address] [place], [address] Emergency Department Summary on 12-21-2024 Emergency Department Summary [facility] Medical Records Department [address] [place] [address] Emergency Department Summary 12/21/24 MR#: [id number] Acct: [id number] Name: BRENDA LE Rep #: [id number] : 1965 59 From: aBbak Garcia DO PCP: Shelia Salmon, MACHINE TOOL DESIGNER Status:REG ER Location: ED HPI History of [...] 2 ill individuals right now in her half-way. Patient states that she has been wheezing a lot lately. Per EMS they did not give any breathing treatments as her lungs were clear for them. [facility] Medical History Obesity (BMI 30-39.9) Hyponatremia [...] Rx table (more content not included)... Normal [facility] Eosinophil percentageOrdered By: Babak Garcia on 12-21-2024 Eosinophils/100 WBC (Bld) 0.1 % Normal 0-5 [facility] Comment on above: Performed By: #### L 500.2500, L100.0100 #### [facility] [address] [place], [address] Result Comment: This specimen has been REJECTED due to Laboratory criteria: Contaminated/Leaked. juliocesar has been notified of need of recollection. 12/21/24 0957 Issac Moreno Performed By: #### L 100.0100 #### [facility] [address] [place], [address] Epithelial cells.squamous LM Ql (Urine sed)Ordered By: Babak Garcia on 12-21-2024 Epithelial cells.squamous LM.HPF (Urine sed) [#/Area] 0 /[HPF] 5-10 [facility] Erythrocyte distribution wid th ratioOrdered By: Babak Garcia on 12-21-2024 Erythrocyte distribution width (RBC) [Ratio] 14.3 % Normal 11.6-14.6 [facility] Comment on above: Performed By: #### L 500.2500, L100.0100 #### [facility] [address] [place], [address] Erythrocyte distribution wid th standard deviationOrdered By: Babak Garcia on 12-21-2024 Erythrocyte distribution width (RBC) [Entitic vol] 46.4 fL High 35.1-43.9 [facility] Erythrocyte distribution width (RBC) [Ratio] 46.4 fl High 35.1-43.9 [facility] Estimation of creatinine epi aranceOrdered By: Babak Garcia on 12-21-2024 Estimated Creatinine Clearance Calc 127.81 ml/min 50-250 [facility] GFR/1.73 sq M.predicted kam g non-blacks MDRD (S/P/Bld) [Vol rate/Area]Ordered By: Babak Garcia on 12-21-2024 Estimated GFR (MDRD) Non-Af Amer 109 >60 [facility] Comment on above: mL/min/1.73m2 CKD-EP I Creatinine Equation (2020) Glomerular filtration rate ( GFR) estimation/1.73 sq m using serum, plasma, or whole bOrdered By: Babak Garcia on 12-21-2024 GFR/1.73 sq M.predicted among non-blacks MDRD (S/P/Bld) [Vol rate/Area] 109 mL/min/{1.73_m2} Normal >60 [facility] Comment on above: mL/min/1.73m2 CKD-EP I Creatinine Equation (2020) Result Comment: mL/m in/1.73m2 CKD-EPI Creatinine Equation (2020) Performed By: #### L 500.2500, L100.0100 #### [facility] [address] [place], [place], [address] Glucose Ql (U)Ordered By: Rory Garcia on 12-21-2024 Glucose (U) [Mass/Vol] 1000 mg/dL High Normal [facility] Hemoglobin measurementOrdere d By: Babak Garcia on 12-21-2024 Hemoglobin (Bld) [Mass/Vol] 12.7 g/dL Normal 12.0-15.0 [facility] Comment on above: Performed By: #### L 500.2500, L100.0100 #### [facility] [address] [place], [address] Immature granulocytes/100 WB C Auto (Bld)Ordered By: Babakjessi Garcia on 12-21-2024 Immature granulocytes/100 WBC (Bld) 0.400 % 0.0-0.9 [facility] Comment on above: IG% - Immature Granu locytes (promyelocytes, myelocytes and metamyelocytes) > 1% indicates that a LEFT SHIFT is Present. Influenza virus A and B and SARS-CoV-2 (COVID-19) and Respiratory syncytial virus RNAOrdered By: Babak Garcia on 12-21-2024 SARS-CoV-2 (COVID-19) RNA LUIS M+probe Ql (Unsp spec) SARS-CoV-2 (COVID 19 PCR) Abnormal [facility] International normalized rat io (INR) calculationOrdered By: Babak Garcia on 12-21-2024 INR Coag (Bld) [Relative time] 1.0 {INR} [facility] Ketones Test strip Ql (U)Ord ered By: Babak Garcia on 12-21-2024 Ketones Ql (U) Negative Negative [facility] L499.0042on 12-21-2024 Trop T High Sen 7 ng/L Normal <=14 [facility] Comment on above: Performed By: #### L 500.2500, L100.0100 #### [facility] [address] [place], [address] L499.0043on 12-21-2024 Trop T High Sen Normal <=14 [facility] Comment on above: Result Comment: Canc elled via OM: Order cancelled - Patient discharged Performed By: #### L 500.2500, L100.0100 #### [facility] [address] [place], [address] L501.4021on 12-21-2024 Trop T High Sen 7 ng/L Normal <=14 [facility] Comment on above: Performed By: #### M 100.678 #### [facility] [address] [place], [address] L503.7505on 12-21-2024 proBNP < 36 Normal <=900 [facility] Comment on above: Result Comment: Hear t Failure Unlikely: < 300 pg/mL Heart Failure Likely < 50 Years: > 450 pg/mL 50-75 Years: > 900 pg/mL >75 Years: > 1800 pg/mL Performed By: #### L 500.2500, L100.0100 #### [facility] [address] [place], [address] Lactic acid measurementOrder ed By: Babak Garcia on 12-21-2024 Lactate [Moles/Vol] 1.4 mmol/L Normal 0.0-2.0 [facility] Comment on above: Order Comment: Y Performed By: #### L 500.2500, L100.0100 #### [facility] [address] [place], [address] Lymphocytes Auto (Unsp spec) [#/Vol]Ordered By: Babak Garcia on 12-21-2024 Lymphocytes (Bld) [#/Vol] 1.06 10*3/uL 0.83-4.51 [facility] M100.678on 12-21-2024 M100.678 Copy of report sent to Infection Control Printer [id number] 12/21/24 0936 SELENA. SARS-CoV-2 (COVID 19) A Positive A INFLUENZA A Negative INFLUENZA B Negative RSV PCR Negative SARS-CoV-2 (COVID 19 PCR) Normal [facility] Comment on above: Performed By: #### M 100.638 #### [facility] [address] [place], [address] MCV (mean corpuscular volume ) determinationOrdered By: Babak Garcia on 12-21-2024 MCV (RBC) [Entitic vol] 88.6 fL Normal 81-99 [facility] Comment on above: Performed By: #### L 500.2500, L100.0100 #### [facility] [address] [place], [address] Mean corpuscular hemoglobin (MCH) determinationOrdered By: Babak Garcia on 12-21-2024 MCH (RBC) [Entitic mass] 29.5 pg Normal 27.0-32.0 [facility] Comment on above: Performed By: #### L 500.2500, L100.0100 #### [facility] [address] [place], [place], [address] Mean corpuscular hemoglobin concentration (MCHC) determinationOrdered By: Babak Garcia on 12-21-2024 MCHC (RBC) [Mass/Vol] 33.3 g/dL Normal 32-36 [facility] Comment on above: Performed By: #### L 500.2500, L100.0100 #### [facility] [address] [place], [place], [address] Mean platelet volume determi nationOrdered By: Babak Garcia on 12-21-2024 Platelet mean volume (Bld) [Entitic vol] 9.4 fL Normal 6.2-12.0 [facility] Comment on above: Performed By: #### L 500.2500, L100.0100 #### [facility] [address] [facility] [place], [place], [address] Microscopic analysis of urin e for red blood cells (RBC)Ordered By: Babak Garcia on 12-21-2024 Microscopic analysis of urine for red blood cells (RBC) 0 SEEN /hpf 0-5 [facility] Urine RBC 0 SEEN /hpf 0-5 [facility] Monocyte percentageOrdered B y: Babak Garcai on 12-21-2024 Monocytes/100 WBC (Bld) 4.7 % Normal 0-10 [facility] Comment on above: Performed By: #### L 500.2500, L100.0100 #### [facility] [address] [place], [place], [id number] Mucus LM Ql (Urine sed)Order ed By: Babak Garcia on 12-21-2024 Mucus Ql (Urine sed) 0 SEEN /hpf [facility] Neutrophil percentageOrdered By: Babak Garcia on 12-21-2024 Neutrophils/100 WBC (Bld) 86.0 % High 47-70 [facility] Comment on above: Performed By: #### L 500.2500, L100.0100 #### [facility] [address] [place], [address] Nitrite Test strip Ql (U)Ord ered By: Babak Garcia on 12-21-2024 Nitrite Ql (U) Negative Negative [facility] No Panel InformationOrdered By: Babak Garcia on 12-21-2024 Troponin T High Sensitivity 7 ng/L <14 [facility] [id number] Natriuretic Peptide II < 36 pg/mL <900 [facility] Comment on above: Heart Failure Unlike ly: < 300 pg/mLHeart Failure Likely< 50 Years: > 450 pg/mL50-75 Years: > 900 pg/mL>75 Years: > 1800 pg/mL Nucleated red blood cell per centageOrdered By: Babak Garcia on 12-21-2024 Nucleated RBC/100 WBC (Bld) [Ratio] 0 % 0-5 [facility] Partial Thromboplast Timeon 12-21-2024 aPTT Coag (Bld) [Time] 35.4 s Normal 24.1-36.[address] [facility] Comment on above: Performed By: #### L 100.0100 #### [facility] [address] [place], [address] Platelet countOrdered By: Rory Garcia on 12-21-2024 Platelets (Bld) [#/Vol] 186 10*3/uL Normal 150-450 [facility] Comment on above: Performed By: #### L 500.2500, L100.0100 #### [facility] [address] [place], [address] Potassium measurement (mass/ volume)Ordered By: Babak Garcia on 12-21-2024 Potassium [Moles/Vol] 4.0 mmol/L Normal 3.3-5.1 [facility] Comment on above: Hemolysis present, R esults could be affected. Result Comment: Hemo lysis present, Results??could be affected. ?? Performed By: #### L 500.2500, L100.0100 #### [facility] [address] [place], [address] Potassium (Unsp spec) [Mass/Vol] 4.0 mmol/L 3.3-5.1 [facility] Comment on above: Hemolysis present, R esults could be affected. Protein Test strip Ql (U)Ord ered By: Babak Garcia on 12-21-2024 Protein Ql (U) 15 mg/dl High Negative [facility] Prothrombin Time w/INRon INR Coag (PPP) [Relative time] 1.0 {INR} Normal [facility] Comment on above: Performed By: #### L 100.0100 #### [facility] [address] [place], [address] PT Coag (PPP) [Time] 13.0 s Normal 11.7-14.9 [facility] Comment on above: Performed By: #### L 100.0100 #### [facility] [address] [place], [address] Prothrombin timeOrdered By: Babak Garcia on 12-21-2024 PT Coag (PPP) [Time] 13.0 s 11.7-14.9 [facility] Serum creatinine measurement (mass/volume)Ordered By: Babak Garcia on 12-21-2024 Creatinine [Mass/Vol] 0.46 mg/dL Low 0.70-1.20 [facility] Comment on above: Performed By: #### L 500.2500, L100.0100 #### [facility] [address] [place], [address] Serum globulin measurementOr dered By: Babak Garcia on 12-21-2024 Globulin (S) [Mass/Vol] 2.6 g/dL Normal 2.2-4.2 [facility] Comment on above: Performed By: #### L 500.2500, L100.0100 #### [facility] [address] [place], [address] Serum glucose measurement (m ass/volume)Ordered By: Babak Garcia on 12-21-2024 Glucose [Mass/Vol] 124 mg/dL High 70-99 [facility] Comment on above: Performed By: #### L 500.2500, L100.0100 #### [facility] [address] [place], [address] Serum or plasma alanine angulo otransferase (ALT) measurementOrdered By: Babak Gracia on 12-21-2024 ALT [Catalytic activity/Vol] 33 U/L Normal <=34 [facility] Comment on above: Performed By: #### L 500.2500, L100.0100 #### [facility] [address] [place], [address] Serum or plasma albumin lawrence urement (mass/volume)Ordered By: Babak Garcia on 12-21-2024 Albumin [Mass/Vol] 3.7 g/dL Normal 3.4-4.8 [facility] Comment on above: Performed By: #### L 500.2500, L100.0100 #### [facility] [address] [place], [address] Serum or plasma albumin/glob ulin mass ratioOrdered By: Babak Garcia on 12-21-2024 Albumin/Globulin [Mass ratio] 1.4 {ratio} Normal 0.9-2.4 [facility] Comment on above: Performed By: #### L 500.2500, L100.0100 #### [facility] [address] [place], [address] Serum or plasma alkaline jakob sphatase measurementOrdered By: Babak Garcia on 12-21-2024 ALP [Catalytic activity/Vol] 108 U/L High 35-104 [facility] Serum or plasma calcium lawrence urement (mass/volume)Ordered By: Babak Garcia on 12-21-2024 Calcium [Mass/Vol] 8.1 mg/dL Normal 7.6-11.0 [facility] Comment on above: Performed By: #### L 500.2500, L100.0100 #### [facility] [address] [place], [address] Serum or plasma urea nitroge n measurement (mass/volume)Ordered By: Babak Garcia on 12-21-2024 Urea nitrogen [Mass/Vol] 9 mg/dL Normal 4-19 [facility] Comment on above: Performed By: #### L 500.2500, L100.0100 #### [facility] [address] [place], [address] Sodium levelOrdered By: Juma Garcia on 12-21-2024 Sodium [Moles/Vol] 135 mmol/L Normal 133-145 [facility] Comment on above: Performed By: #### L 500.2500, L100.0100 #### [facility] [address] [place], [address] Squamous epithelial cells de tection in urine sediment by light microscopyOrdered By: Babak Garcia on 12-21-2024 Epithelial cells.squamous LM Ql (Urine sed) 0 SEEN /hpf 5-10 [facility] Total proteinOrdered By: Rogelio Garcia on 12-21-2024 Protein [Mass/Vol] 6.3 g/dL 5.9-8.4 [facility] Troponin T.cardiac High sens itivity method [Mass/Vol]Ordered By: Babak Garcia on 12-21-2024 Troponin T High Sensitivity 2 Hour 7 ng/L <14 [facility] Troponin T.cardiac [Mass/vol ume] in Serum or Plasma by High sensitivity methodOrdered By: Babak Garcia on 12-21-2024 Troponin T.cardiac High sensitivity method [Mass/Vol] 7 ng/L <14 [facility] Urinalysis, Completeon 12-21 RBC 0 SEEN Normal 0-5 [facility] Comment on above: Order Comment: COLLE CTOR TO SPECIFY Performed By: #### M 100.678 #### [facility] [address] [place], [address] BACTERIA 0 SEEN Normal None Seen [facility] Comment on above: Order Comment: DARVIN CTOR TO SPECIFY Performed By: #### M 100.678 #### [facility] [address] [place], [address] EPI,SQUAMOUS 0 SEEN Normal 5-10 [facility] Comment on above: Order Comment: DARVIN CTOR TO SPECIFY Performed By: #### M 100.678 #### [facility] [address] [place], [address] Mucus Ql (Urine sed) 0 SEEN Normal [facility] Comment on above: Order Comment: DARVIN CTOR TO SPECIFY Performed By: #### M 100.678 #### [facility] [address] [place], [address] WBC 0 SEEN Normal 0-5 [facility] Comment on above: Order Comment: DARVIN CTOR TO SPECIFY Performed By: #### M 100.678 #### [facility] [address] [place], [address] Urine blood detectionOrdered By: Babak Garcia on 12-21-2024 Urine Occult Blood Negative Negative [facility] Urine clarityOrdered By: Rogelio Garcia on 12-21-2024 Clarity (U) Clear Clear [facility] Urine color determinationOrd ered By: Babak Garcia on 12-21-2024 Color (U) Yellow Yellow [facility] Urine cultureOrdered By: Rogelio Garcia on 12-21-2024 Bacteria identified Cx Nom (U) Mixed Gram Pos & Gram Neg Org Abnormal [facility] Urine glucose detectionOrder ed By: Babak Garcia on 12-21-2024 Glucose Ql (U) 1000 mg/dl High Normal [facility] Urine leukocyte esterase det ection by dipstickOrdered By: Babak Garcia on 12-21-2024 Leukocyte esterase Test strip Ql (U) Negative Negative [facility] Urine pHOrdered By: Babak davidson on 12-21-2024 pH (U) 6.5 [pH] 5.0 - 8.0 [facility] Urine sediment bacteria coun t by microscopy (number/high power field)Ordered By: Babak Garcia on 12-21-2024 Bacteria LM.HPF (Urine sed) [#/Area] 0 /[HPF] None Seen [facility] Urine specific gravity measu rementOrdered By: Babak Garcia on 12-21-2024 Specific gravity (U) [Rel density] 1.010 1.002-1.030 [facility] Urine urobilinogen measureme ntOrdered By: Babak Garcia on 12-21-2024 Urobilinogen Ql (U) Normal mg/dl Normal [facility] Urobilinogen Ql (U)Ordered B y: Babak Garcia on 12-21-2024 Urine Urobilinogen Normal mg/dl Normal [facility] White blood cell (WBC) count Ordered By: Babak Garcia on 12-21-2024 WBC (Bld) [#/Vol] 12.3 10*3/uL High 4.4-11.0 [facility] Comment on above: Performed By: #### L 500.2500, L100.0100 #### [facility] [address] [place], [place] [address]. [place], [place], [id number] White blood cell countOrdere d By: Babak Garcia on 12-21-2024 Urine WBC 0 SEEN /hpf 0-5 [facility] White blood cell count 0 SEEN /hpf 0-5 [facility] aPTT Coag (PPP) [Time]Ordere d By: Babak Garcia on 12-21-2024 aPTT Coag (Bld) [Time] 35.4 s 24.1-36.[address] [facility] Absolute lymphocyte countOrd ered By: Lorraine Springer on 12-08-2024 Lymphocytes Auto (Unsp spec) [#/Vol] 2.50 10*3/uL 0.83-4.51 [facility] Absolute neutrophil countOrd ered By: Lorraine Springer on 12-08-2024 Neutrophils (Bld) [#/Vol] 6.5 10*3/uL 2.0-7.7 [facility] Automated lymphocyte count a s percentage of total leukocytesOrdered By: Moondonald Hermilodinorah on 12-08-2024 Lymphocytes/100 WBC Auto (Unsp spec) 25.5 % 19-41 [facility] Basophil percentageOrdered B y: Lorraine Springer on 12-08-2024 Basophils/100 WBC (Bld) 0.6 % 0-1 [facility] CBC W/Diff, Automatedon 11-14 Absolute Lymph 2.50 X10 3/uL Normal 0.83-4.51 [facility] Comment on above: Performed By: #### L 500.2500, L100.0100 #### [facility] [address] [place], [address] Absolute Neut 6.5 X10 3/uL Normal 2.0-7.7 [facility] Comment on above: Performed By: #### L 500.2500, L100.0100 #### [facility] [address] [place], [address] Basophils/100 WBC (Bld) 0.6 % Normal 0-1 [facility] Comment on above: Performed By: #### L 500.2500, L100.0100 #### [facility] [address] [place], [address] Eosinophils/100 WBC (Bld) 0.2 % Normal 0-5 [facility] Comment on above: Performed By: #### L 500.2500, L100.0100 #### [facility] [address] [place], [address] Erythrocyte distribution width (RBC) [Ratio] 14.5 % Normal 11.6-14.6 [facility] Comment on above: Performed By: #### L 500.2500, L100.0100 #### [facility] [address] [place], [address] Hematocrit (Bld) [Volume fraction] 41.7 % Normal 37-47 [facility] Comment on above: Performed By: #### L 500.2500, L100.0100 #### [facility] [address] [place], [address] Hemoglobin (Bld) [Mass/Vol] 13.7 g/dL Normal 12.0-15.0 [facility] Comment on above: Performed By: #### L 500.2500, L100.0100 #### [facility] [address] [place], [address] IG% 0.500 Normal 0.0-0.9 [facility] Comment on above: Result Comment: IG% - Immature Granulocytes (promyelocytes, myelocytes and metamyelocytes) > 1% indicates that a LEFT SHIFT is Present. Performed By: #### L 500.2500, L100.0100 #### [facility] [address] [place], [address] Lymphocytes/100 WBC (Bld) 25.5 % Normal 19-41 [facility] Comment on above: Performed By: #### L 500.2500, L100.0100 #### [facility] [address] [place], [address] MCH (RBC) [Entitic mass] 29.3 pg Normal 27.0-32.0 [facility] Comment on above: Performed By: #### L 500.2500, L100.0100 #### [facility] [address] [place], [address] MCHC (RBC) [Mass/Vol] 32.9 g/dL Normal 32-36 [facility] Comment on above: Performed By: #### L 500.2500, L100.0100 #### [facility] [address] [place], [address] MCV (RBC) [Entitic vol] 89.3 fL Normal 81-99 [facility] Comment on above: Performed By: #### L 500.2500, L100.0100 #### [facility] [address] [place], [address] Monocytes/100 WBC (Bld) 7.0 % Normal 0-10 [facility] Comment on above: Performed By: #### L 500.2500, L100.0100 #### [facility] [address] [place], [address] Neutrophils/100 WBC (Bld) 66.2 % Normal 47-70 [facility] Comment on above: Performed By: #### L 500.2500, L100.0100 #### [facility] [address] [place], [address] Nucleated RBC (Bld) [#/Vol] 0 10*3/uL Normal 0-5 [facility] Comment on above: Performed By: #### L 500.2500, L100.0100 #### [facility] [address] [place], [address] Platelet mean volume (Bld) [Entitic vol] 9.5 fL Normal 6.2-12.0 [facility] Comment on above: Performed By: #### L 500.2500, L100.0100 #### [facility] [address] [place], [address] Platelets (Bld) [#/Vol] 225 10*3/uL Normal 150-450 [facility] Comment on above: Performed By: #### L 500.2500, L100.0100 #### [facility] [address] [place], [address] RBC (Bld) [#/Vol] 4.67 10*6/uL Normal 4.2-5.4 [facility] Comment on above: Performed By: #### L 500.2500, L100.0100 #### [facility] [address] [place], [address] RDW SD 46.8 fl High 35.1-43.9 [facility] Comment on above: Performed By: #### L 500.2500, L100.0100 #### [facility] [address] [place], [address] WBC (Bld) [#/Vol] 9.8 10*3/uL Normal 4.4-11.0 [facility] Comment on above: Performed By: #### L 500.2500, L100.0100 #### [facility] [address] [place], [address] Eosinophil percentageOrdered By: Lorraine Springer on 12-08-2024 Eosinophils/100 WBC (Bld) 0.2 % 0-5 [facility] Erythrocyte distribution wid th ratioOrdered By: Lorraine Springer on 12-08-2024 Erythrocyte distribution width (RBC) [Ratio] 14.5 % 11.6-14.6 [facility] Erythrocyte distribution wid th standard deviationOrdered By: Lorraine Springer on 12-08-2024 Erythrocyte distribution width (RBC) [Entitic vol] 46.8 fL High 35.1-43.9 [facility] Erythrocyte distribution width (RBC) [Ratio] 46.8 fl High 35.1-43.9 [facility] Hematocrit Auto (Bld) [Volum e fraction]Ordered By: Lorraine Springer on 12-08-2024 Hematocrit (Bld) [Volume fraction] 41.7 % 37-47 [facility] Hemoglobin measurementOrdere d By: Lorraine Springer on 12-08-2024 Hemoglobin (Bld) [Mass/Vol] 13.7 g/dL 12.0-15.0 [facility] Immature granulocytes/100 WB C Auto (Bld)Ordered By: Lorraine Springer on 12-08-2024 Immature granulocytes/100 WBC (Bld) 0.500 % 0.0-0.9 [facility] Comment on above: IG% - Immature Granu locytes (promyelocytes, myelocytes and metamyelocytes) > 1% indicates that a LEFT SHIFT is Present. Lymphocytes Auto (Unsp spec) [#/Vol]Ordered By: Lorraine Springer on 12-08-2024 Lymphocytes (Bld) [#/Vol] 2.50 10*3/uL 0.83-4.51 [facility] Lymphocytes/100 WBC Auto (Un sp spec)Ordered By: Lorraine Springer on 12-08-2024 Lymphocytes/100 WBC (Bld) 25.5 % 19-41 [facility] MCV (mean corpuscular volume ) determinationOrdered By: Lorraine Springer on 12-08-2024 MCV (RBC) [Entitic vol] 89.3 fL 81-99 [facility] Mean corpuscular hemoglobin (MCH) determinationOrdered By: Lorraine Springer on 12-08-2024 MCH (RBC) [Entitic mass] 29.3 pg 27.0-32.0 [facility] Mean corpuscular hemoglobin concentration (MCHC) determinationOrdered By: Lorraine Springer on 12-08-2024 MCHC (RBC) [Mass/Vol] 32.9 g/dL 32-36 [facility] Mean platelet volume determi nationOrdered By: Lorraine Springer on 12-08-2024 Platelet mean volume (Bld) [Entitic vol] 9.5 fL 6.2-12.0 [facility] Monocyte percentageOrdered B y: Lorraine Springer on 12-08-2024 Monocytes/100 WBC (Bld) 7.0 % 0-10 [facility] Neutrophil percentageOrdered By: Lorraine Springer on 12-08-2024 Neutrophils/100 WBC (Bld) 66.2 % 47-70 [facility] Nucleated red blood cell per centageOrdered By: Lorraine Springer on 12-08-2024 Nucleated RBC/100 WBC (Bld) [Ratio] 0 % 0-5 [facility] Platelet countOrdered By: Anastacia Springer on 12-08-2024 Platelets (Bld) [#/Vol] 225 10*3/uL 150-450 [facility] RBC Auto (Bld) [#/Vol]Ordere d By: Lorraine Springer on 12-08-2024 RBC (Bld) [#/Vol] 4.67 10*6/uL 4.2-5.4 [facility] White blood cell (WBC) count Ordered By: Lorraine Springer on 12-08-2024 WBC (Bld) [#/Vol] 9.8 10*3/uL 4.4-11.0 [facility] CNOVon 12-07-2024 CNOV Normal [facility] XR CHEST 2V FRONTAL/LATon XR CHEST 2V FRONTAL/LAT Normal [facility] XR Chest PA and Lateralon IMPRESSION: No acute radiographic abnormality. Recruiter Specialist: PSCB Transcribe Date/Time: Dec 07 2024 12:05P Dictated by : LISET MAY MD This examination was interpreted and the report reviewed and electronically signed by: LISET MAY MD on Dec 07 2024 12:06PM [facility] DIVISION OF RADIOLOGY * * *Final Report* [...] soft tissues: Unremarkable. DIVISION OF RADIOLOGY [facility] * * *Final Report* * [...] Unremarkable. IMPRESSION IMPRESSION: No acute radiographic abnormality. Recruiter Specialist: PSCB Transcribe Date/Time: Dec 07 2024 12:05P Dictated by : LISET MAY MD This examination was interpreted and the report reviewed and electronically signed by: LISET MAY MD on Dec 07 2024 12:06PM EST [facility] Radiology Study observation (narrative) [facility] XR Chest PA and LateralOrder ed By: Ccf Provider on 12-07-2024 [facility] CNPNon 12-03-2024 CNPN Normal [facility] PVR ANK/LARRY/TOE ASHELY VAS LAB on 12-01-2024 PVR ANK/LARRY/TOE ASHELY VAS LAB Normal [facility] CNPNon 11-29-2024 CNPN Normal [facility] CBC W/Diff, Automatedon Absolute Lymph 1.87 X10 3/uL Normal 0.83-4.51 [facility] Comment on above: Performed By: #### L 100.0100 #### [facility] [address] [place], [address] Absolute Neut 11.3 X10 3/uL High 2.0-7.7 [facility] Comment on above: Performed By: #### L 100.0100 #### [facility] [address] [place], [address] Basophils/100 WBC (Bld) 0.5 % Normal 0-1 [facility] Comment on above: Performed By: #### L 100.0100 #### [facility] [address] [place], [address] Eosinophils/100 WBC (Bld) 0.1 % Normal 0-5 [facility] Comment on above: Performed By: #### L 100.0100 #### [facility] [address] [place], [address] Erythrocyte distribution width (RBC) [Ratio] 14.3 % Normal 11.6-14.6 [facility] Comment on above: Performed By: #### L 100.0100 #### [facility] [address] [place], [address] Hematocrit (Bld) [Volume fraction] 41.1 % Normal 37-47 [facility] Comment on above: Performed By: #### L 100.0100 #### [facility] [address] [place], [address] Hemoglobin (Bld) [Mass/Vol] 13.3 g/dL Normal 12.0-15.0 [facility] Comment on above: Performed By: #### L 100.0100 #### [facility] [address] [place], [address] IG% 3.400 High 0.0-0.9 [facility] Comment on above: Result Comment: IG% - Immature Granulocytes (promyelocytes, myelocytes and metamyelocytes) > 1% indicates that a LEFT SHIFT is Present. Performed By: #### L 100.0100 #### [facility] [address] [place], [address] Lymphocytes/100 WBC (Bld) 13.1 % Low 19-41 [facility] Comment on above: Performed By: #### L 100.0100 #### [facility] [address] [place], [address] MCH (RBC) [Entitic mass] 28.9 pg Normal 27.0-32.0 [facility] Comment on above: Performed By: #### L 100.0100 #### [facility] [address] [place], [address] MCHC (RBC) [Mass/Vol] 32.4 g/dL Normal 32-36 [facility] Comment on above: Performed By: #### L 100.0100 #### [facility] [address] [place], [address] MCV (RBC) [Entitic vol] 89.2 fL Normal 81-99 [facility] Comment on above: Performed By: #### L 100.0100 #### [facility] [address] [place], [address] Monocytes/100 WBC (Bld) 3.7 % Normal 0-10 [facility] Comment on above: Performed By: #### L 100.0100 #### [facility] [address] [place], [address] Neutrophils/100 WBC (Bld) 79.2 % High 47-70 [facility] Comment on above: Performed By: #### L 100.0100 #### [facility] [address] [place], [address] Nucleated RBC (Bld) [#/Vol] 0 10*3/uL Normal 0-5 [facility] Comment on above: Performed By: #### L 100.0100 #### [facility] [address] [place], [address] Platelet mean volume (Bld) [Entitic vol] 9.5 fL Normal 6.2-12.0 [facility] Comment on above: Performed By: #### L 100.0100 #### [facility] [address] [place], [address] Platelets (Bld) [#/Vol] 262 10*3/uL Normal 150-450 [facility] Comment on above: Performed By: #### L 100.0100 #### [facility] [address] [place], [address] RBC (Bld) [#/Vol] 4.61 10*6/uL Normal 4.2-5.4 [facility] Comment on above: Performed By: #### L 100.0100 #### [facility] [address] [place], [address] RDW SD 45.5 fl High 35.1-43.9 [facility] Comment on above: Performed By: #### L 100.0100 #### [facility] [address] [place], [id number] WBC (Bld) [#/Vol] 14.3 10*3/uL High 4.4-11.0 [facility] Comment on above: Performed By: #### L 100.0100 #### [facility] [address] [place], [id number] Culture, Blood (WB)on 2024 CUB Blood cultures x2, f rom two different sites No growth in 5 days. Normal [facility] Comment on above: Performed By: #### L 500.4050, L501.4020, L501.2450, L100.0500 #### [facility] [address] [facility] [address] [place], [id number] Vitamin D 1,25-Dihydroxyon 0 11-13-2024 VIT D 1,25 DIHY 106.0 pg/mL Abnormal 24.8-81.5 [facility] Comment on above: Result Comment: Perf ormed at: [facility] [id number] Outbound Sales Agent: Darcy Schulz MD, Phone: [phone] Performed By: #### L 100.0100 #### [facility] [address] [place], [id number] BNP (brain natriuretic pepti de measurement)Ordered By: Hesham Rod on 11-12-2024 Natriuretic peptide B (Bld) [Mass/Vol] 24.1 pg/mL 0-100 [facility] BNP,B-Type NATRIURETIC PEPTI Yair 11-12-2024 Natriuretic peptide B (Bld) [Mass/Vol] 24.1 pg/mL Normal 0-100 [facility] Comment on above: Performed By: #### L 500.2500, L100.0100 #### [facility] [address] [place], [address] Bedside Glucoseon 11-12-2024 FINGERSTICK GLU 213 mg/dL High 74-106 [facility] Comment on above: Result Comment: DANIEL GEMENT OF PATIENT CARE PER NURSING PROTOCOL Performed By: #### L 500.2500, L100.0100 #### [facility] [address] [place], [address] FINGERSTICK GLU 230 mg/dL High 74-106 [facility] Comment on above: Result Comment: DANIEL GEMENT OF PATIENT CARE PER NURSING PROTOCOL Performed By: #### M 100.678 #### [facility] [address] [place], [place], [address] Chest 1 View (Portable)on Chest 1 View (Portable) [facility] Imaging Services [address] [place], [place] [address] Chest 1 View (Portable) MR#: [id number] Acct: [id number] Name: BRENDA LE Rep #: [id number] : 1965 F 58 From: Adriano Mejia DO PCP: Shelia Salmon, MACHINE TOOL DESIGNER Status: ADM IN Study: Chest 1 View (Portable) Date of Exam: 11/12/24 Exam# [id number] Ordering Dr: Hesham Amato DO PROCEDURE: CHEST [...] right lower lobe infiltrate . Reading Location: [facility] CC: MACHINE TOOL DESIGNER Shelia Salmon; Dr. Hesham Amato DO Recruiter Specialist: Signed Normal [facility] Discharge Instructionon 10-15 Discharge Instruction [facility] Medical Records Department [address] [place] [address] Instructions for Home/Discharge Instructions 11/12/24 1016 MR#: [id number] Acct: [id number] Name: BRENDA LE Rep #: [id number] : 1965 58 From: Ana Lilia Lebron DO PCP: Shelia Salmon, MACHINE TOOL DESIGNER Status:ADM IN Discharge Instructions Diet Discharge Diet: [...] Salmon; Dr. Hesham Amato DO Signed Normal [facility] Glucose measurement at [facility] deOrdered By: Ana Lilia Lebron on 11-12-2024 Bedside Glucose (Misc Panel) 213 mg/dL High 74-106 [facility] Comment on above: MANAGEMENT OF PATIEN T CARE PER NURSING PROTOCOL Bedside Glucoseon 11-11-2024 FINGERSTICK GLU 257 mg/dL High 74-106 [facility] Comment on above: Result Comment: DANIEL GEMENT OF PATIENT CARE PER NURSING PROTOCOL Performed By: #### M 100.638 #### [facility] [address] [place], [address] FINGERSTICK GLU 315 mg/dL High 74-106 [facility] Comment on above: Result Comment: DANIEL GEMENT OF PATIENT CARE PER NURSING PROTOCOL Performed By: #### L 500.2500, L100.0100 #### [facility] [address] [place], [address] FINGERSTICK GLU 205 mg/dL High -106 [facility] Comment on above: Result Comment: DANIEL GEMENT OF PATIENT CARE PER NURSING PROTOCOL Performed By: #### L 500.2500, L100.0100 #### [facility] [address] [place], [address] FINGERSTICK GLU 247 mg/dL High -106 [facility] Comment on above: Result Comment: DANIEL GEMENT OF PATIENT CARE PER NURSING PROTOCOL Performed By: #### M 100.678 #### [facility] [address] [place], [address] FINGERSTICK GLU 178 mg/dL High [facility]106 [facility] Comment on above: Result Comment: DANIEL GEMENT OF PATIENT CARE PER NURSING PROTOCOL Performed By: #### L 500.2500, L100.0100 #### [facility] [address] [place], [address] M100.019on 11-11-2024 M100.019 Negative Normal [facility] Comment on above: Performed By: #### M 100.019 #### [facility] [address] [place], [address] [id number] By: Hesham Rod on 11-11-2024 SARS-CoV-2 (COVID-19) RNA LUIS M+probe Ql (Unsp spec) [facility] 1,25-dihydroxyvitamin D3 [Ma ss/Vol]Ordered By: Hesham Rod on 11-10-2024 Vitamin D 1,25-Dihydroxy 106.0 pg/mL High 24.8-81.5 [facility] Comment on above: Performed at: [address] [id number] Director: Darcy Schulz MD, Phone: [phone] Absolute neutrophil countOrd ered By: Hesham Rod on 11-10-2024 Neutrophils (Bld) [#/Vol] 8.7 10*3/uL High 2.0-7.7 [facility] Albumin to globulin ratioOrd ered By: Hesham Rod on 11-10-2024 Albumin/Globulin [Mass ratio] 0.7 {ratio} Low 0.9-2.4 [facility] Basophil percentageOrdered B y: Hesham Rod on 11-10-2024 Basophils/100 WBC (Bld) 0.2 % 0-1 [facility] Bedside Glucoseon 11-10-2024 FINGERSTICK GLU 195 mg/dL High 74-106 [facility] Comment on above: Result Comment: DANIEL GEMENT OF PATIENT CARE PER NURSING PROTOCOL Performed By: #### M 100.678 #### [facility] [address] [place], [address] FINGERSTICK GLU 245 mg/dL High [address] [place] [address] Comment on above: Result Comment: DANIEL GEMENT OF PATIENT CARE PER NURSING PROTOCOL Performed By: #### M 100.678 #### [facility] [address] [place], [address] FINGERSTICK GLU 278 mg/dL High [address] [place] [address] Comment on above: Result Comment: DANIEL GEMENT OF PATIENT CARE PER NURSING PROTOCOL Performed By: #### L 500.2500, L100.0100 #### [facility] [address] [place], [address] FINGERSTICK GLU 192 mg/dL High 74-106 [facility] Comment on above: Result Comment: DANIEL COLMENARES OF PATIENT CARE PER NURSING PROTOCOL Performed By: #### M 100.638 #### [facility] [address] [place], [address] Bilirubin, totalOrdered By: Hesham Rod on 11-10-2024 Bilirubin [Mass/Vol] 0.50 mg/dL 0.20-1.00 [facility] Comment on above: Slight Lipemia, Resu lt may be falsely increased. For patients on eltrombopag therapy, use of Dimension Ovalo TBIL is not recommended. Blood urea nitrogen (BUN)/cr eatinine ratioOrdered By: Hesham Rod on 11-10-2024 Urea nitrogen/Creatinine [Mass ratio] 23.0 mg/mg High 10-20 [facility] CBC W/Diff, Automatedon 10-14 MCHC (RBC) [Mass/Vol] 32.0 g/dL Normal 32-36 [facility] Comment on above: Result Comment: H H CHNAGE Performed By: #### L 500.2500, L100.0100 #### [facility] [address] [place], [address] Absolute Lymph 0.92 X10 3/uL Normal 0.83-4.51 [facility] Comment on above: Performed By: #### L 500.2500, L100.0100 #### [facility] [address] [place], [address] Absolute Neut 8.7 X10 3/uL High 2.0-7.7 [facility] Comment on above: Performed By: #### L 500.2500, L100.0100 #### [facility] [address] [place], [address] Basophils/100 WBC (Bld) 0.2 % Normal 0-1 [facility] Comment on above: Performed By: #### L 500.2500, L100.0100 #### [facility] [address] [place], [address] Eosinophils/100 WBC (Bld) 0.0 % Normal 0-5 [facility] Comment on above: Performed By: #### L 500.2500, L100.0100 #### [facility] [address] [place], [address] Erythrocyte distribution width (RBC) [Ratio] 14.3 % Normal 11.6-14.6 [facility] Comment on above: Performed By: #### L 500.2500, L100.0100 #### [facility] [address] [place], [address] Hematocrit (Bld) [Volume fraction] 37.8 % Normal 37-47 [facility] Comment on above: Performed By: #### L 500.2500, L100.0100 #### [facility] [address] [place], [address] Hemoglobin (Bld) [Mass/Vol] 12.1 g/dL Normal 12.0-15.0 [facility] Comment on above: Performed By: #### L 500.2500, L100.0100 #### [facility] [address] [place], [address] IG% 0.700 Normal 0.0-0.9 [facility] Comment on above: Result Comment: IG% - Immature Granulocytes (promyelocytes, myelocytes and metamyelocytes) > 1% indicates that a LEFT SHIFT is Present. Performed By: #### L 500.2500, L100.0100 #### [facility] [address] [place], [address] Lymphocytes/100 WBC (Bld) 9.3 % Low 19-41 [facility] Comment on above: Performed By: #### L 500.2500, L100.0100 #### [facility] [address] [place], [address] MCH (RBC) [Entitic mass] 28.6 pg Normal 27.0-32.0 [facility] Comment on above: Performed By: #### L 500.2500, L100.0100 #### [facility] [address] [place], [address] MCV (RBC) [Entitic vol] 89.4 fL Normal 81-99 [facility] Comment on above: Performed By: #### L 500.2500, L100.0100 #### [facility] [address] [place], [address] Monocytes/100 WBC (Bld) 1.6 % Normal 0-10 [facility] Comment on above: Performed By: #### L 500.2500, L100.0100 #### [facility] [address] [place], [address] Neutrophils/100 WBC (Bld) 88.2 % High 47-70 [facility] Comment on above: Performed By: #### L 500.2500, L100.0100 #### [facility] [address] [place], [address] Nucleated RBC (Bld) [#/Vol] 0 10*3/uL Normal 0-5 [facility] Comment on above: Performed By: #### L 500.2500, L100.0100 #### [facility] [address] [place], [address] Platelet mean volume (Bld) [Entitic vol] 9.2 fL Normal 6.2-12.0 [facility] Comment on above: Performed By: #### L 500.2500, L100.0100 #### [facility] [address] [place], [address] Platelets (Bld) [#/Vol] 223 10*3/uL Normal 150-450 [facility] Comment on above: Performed By: #### L 500.2500, L100.0100 #### [facility] [address] [place], [address] RBC (Bld) [#/Vol] 4.23 10*6/uL Normal 4.2-5.4 [facility] Comment on above: Performed By: #### L 500.2500, L100.0100 #### [facility] [address] [place], [address] RDW SD 46.2 fl High 35.1-43.9 [facility] Comment on above: Performed By: #### L 500.2500, L100.0100 #### [facility] [address] [place], [address] WBC (Bld) [#/Vol] 9.9 10*3/uL Normal 4.4-11.0 [facility] Comment on above: Performed By: #### L 500.2500, L100.0100 #### [facility] [address] [place], [address] CNPNon 11-10-2024 CNPN Normal [facility] Carbon dioxide measurementOr dered By: Hesham Rod on 11-10-2024 CO2 [Moles/Vol] 22.0 mmol/L 21.0-32.0 [facility] Comment on above: Slight Lipemia, Resu lt may be falsely increased. Chloride measurementOrdered By: Hesham Rod on 11-10-2024 Chloride [Moles/Vol] 104 mmol/L 98-107 [facility] Comprehensive Metabolic Prof ilon 11-10-2024 Albumin [Mass/Vol] 3.1 g/dL Low 3.2-5.0 [facility] Comment on above: Performed By: #### L 500.2500, L100.0100 #### [facility] [address] [place], [address] Albumin/Globulin [Mass ratio] 0.7 {ratio} Low 0.9-2.4 [facility] Comment on above: Performed By: #### L 500.2500, L100.0100 #### [facility] [address] [place], [address] ALK P 159 U/L High 45-117 [facility] Comment on above: Performed By: #### L 500.2500, L100.0100 #### [facility] [address] [place], [address] ALT [Catalytic activity/Vol] 90 U/L High 13-56 [facility] Comment on above: Result Comment: Slig ht Lipemia, Result may be falsely increased. Performed By: #### L 500.2500, L100.0100 #### [facility] [address] [place], [address] AST [Catalytic activity/Vol] 50 U/L High 15-37 [facility] Comment on above: Result Comment: Slig ht Lipemia, Result may be falsely increased. Performed By: #### L 500.2500, L100.0100 #### [facility] [address] [place], [address] Bilirubin [Mass/Vol] 0.50 mg/dL Normal 0.20-1.00 [facility] Comment on above: Result Comment: Slig ht Lipemia, Result may be falsely increased. For patients on eltrombopag therapy, use of Dimension Ovalo TBIL is not recommended. Performed By: #### L 500.2500, L100.0100 #### [facility] [address] [place], [address] BUN/CRE 23.0 RATIO High 10-20 [facility] Comment on above: Performed By: #### L 500.2500, L100.0100 #### [facility] [address] [place], [address] CA,Total 8.5 mg/dL Normal 8.5-10.1 [facility] Comment on above: Result Comment: Slig ht Lipemia, Result may be falsely increased. Performed By: #### L 500.2500, L100.0100 #### [facility] [address] [place], [address] Chloride [Moles/Vol] 104 mmol/L Normal 98-107 [facility] Comment on above: Performed By: #### L 500.2500, L100.0100 #### [facility] [address] [place], [address] CO2 [Moles/Vol] 22.0 mmol/L Normal 21.0-32.0 [facility] Comment on above: Result Comment: Slig ht Lipemia, Result may be falsely increased. Performed By: #### L 500.2500, L100.0100 #### [facility] [address] [place], [address] Creatinine [Mass/Vol] 0.43 mg/dL Low 0.55-1.02 [facility] Comment on above: Result Comment: Slig ht Lipemia, Result may be falsely increased. The validity of the calculated GFR GFRAA in patients over 70 years has not been determined. Clinical correlation is essential. Performed By: #### L 500.2500, L100.0100 #### [facility] [address] [place], [address] ECRCL 135.92 ml/min Normal [facility] Comment on above: Performed By: #### L 500.2500, L100.0100 #### [facility] [address] [place], [address] EST GFR - AA 190 mL/min Normal >60 [facility] Comment on above: Result Comment: Afri can Citizen Of [place] GFR Calc Performed By: #### L 500.2500, L100.0100 #### [facility] [address] [place], [address] GAP 10 Normal 5-15 [facility] Comment on above: Performed By: #### L 500.2500, L100.0100 #### [facility] [address] [place], [address] GFR/1.73 sq M.predicted among non-blacks MDRD (S/P/Bld) [Vol rate/Area] 157 mL/min/{1.73_m2} Normal >60 [facility] Comment on above: Result Comment: Non- GFR Calc Performed By: #### L 500.2500, L100.0100 #### [facility] [address] [place], [address] Globulin (S) [Mass/Vol] 4.3 g/dL High 2.2-4.2 [facility] Comment on above: Performed By: #### L 500.2500, L100.0100 #### [facility] [address] [place], [address] Glucose [Mass/Vol] 179 mg/dL High 74-106 [facility] Comment on above: Result Comment: Slig ht Lipemia, Result may be falsely increased. Fasting Glucose result greater than or equal to 126 mg/dL suggests DIABETES MELLITUS per A.D.A. criteria. Performed By: #### L 500.2500, L100.0100 #### [facility] [address] [place], [address] Potassium [Moles/Vol] 3.8 mmol/L Normal 3.5-5.1 [facility] Comment on above: Result Comment: Slig ht Lipemia, Result may be falsely increased. Performed By: #### L 500.2500, L100.0100 #### [facility] [address] [place], [address] Sodium [Moles/Vol] 136 mmol/L Normal 136-145 [facility] Comment on above: Performed By: #### L 500.2500, L100.0100 #### [facility] [address] [place], [address] T PROT 7.4 g/dL Normal 6.4-8.2 [facility] Comment on above: Result Comment: Slig ht Lipemia, Result may be falsely increased. Performed By: #### L 500.2500, L100.0100 #### [facility] [address] [place], [address] Urea nitrogen [Mass/Vol] 10 mg/dL Normal 7-18 [facility] Comment on above: Result Comment: Slig ht Lipemia, Result may be falsely increased. Performed By: #### L 500.2500, L100.0100 #### [facility] [address] [place], [address] Eosinophil percentageOrdered By: Hesham Rod on 11-10-2024 Eosinophils/100 WBC (Bld) 0.0 % 0-5 [facility] Erythrocyte distribution wid th ratioOrdered By: Hesham Rod on 11-10-2024 Erythrocyte distribution width (RBC) [Ratio] 14.3 % 11.6-14.6 [facility] Erythrocyte distribution wid th standard deviationOrdered By: Hesham Rod on 11-10-2024 Erythrocyte distribution width (RBC) [Entitic vol] 46.2 fL High 35.1-43.9 [facility] Estimated glomerular filtrat ion rate (GFR) AmericanOrdered By: Hesham Rod on 11-10-2024 Estimated GFR (MDRD) Amer 190 mL/min >60 [facility] Comment on above: GFR Calc Estimation of creatinine epi aranceOrdered By: Hesham Rod on 11-10-2024 Estimated Creatinine Clearance Calc 135.92 ml/min [facility] Glomerular filtration rate ( GFR) estimationOrdered By: Hesham Rod on 11-10-2024 Estimated GFR (MDRD) Non-Af Amer 157 mL/min >60 [facility] Comment on above: Non- GFR Calc Glucose measurementOrdered B y: Hesham Rod on 11-10-2024 Glucose [Mass/Vol] 179 mg/dL High 74-106 [facility] Comment on above: Slight Lipemia, Resu lt may be falsely increased.Fasting Glucose result greater than or equal to 126 mg/dL suggests DIABETES MELLITUS per A.D.A. criteria. Hematocrit Auto (Bld) [Volum e fraction]Ordered By: Hesham Rod on 11-10-2024 Hematocrit (Bld) [Volume fraction] 37.8 % 37-47 [facility] Hemoglobin A1con 11-10-2024 HbA1c (Bld) [Mass fraction] 6.8 % High 3.8-5.6 [facility] Comment on above: Result Comment: Norm al < 5.7 % Prediabetic 5.7 - 6.4 % Diabetic >or= 6.5 % Please note range changes. Performed By: #### L 100.0100 #### [facility] [address] [place], [place], [id number] Hemoglobin A1c percentageOrd ered By: Hesham Rod on 11-10-2024 HbA1c (Bld) [Mass fraction] 6.8 % High 3.8-5.6 [facility] Comment on above: Normal < 5.7 % Predi abetic 5.7 - 6.4 % Diabetic >or= 6.5 % Please note range changes. Hemoglobin measurementOrdere d By: Hesham Rod on 11-10-2024 Hemoglobin (Bld) [Mass/Vol] 12.1 g/dL 12.0-15.0 [facility] Immature granulocytes/100 WB C Auto (Bld)Ordered By: Hesham Rod on 11-10-2024 Immature granulocytes/100 WBC (Bld) 0.700 % 0.0-0.9 [facility] Comment on above: IG% - Immature Granu locytes (promyelocytes, myelocytes and metamyelocytes) > 1% indicates that a LEFT SHIFT is Present. L. pneumophila Ag Ql (U)Orde red By: Hesham Rod on 11-10-2024 Legionella Antigen [facility] - Chemistry and C hemistry - challengeOrdered By: Hesham Rod on 11-10-2024 AST [Catalytic activity/Vol] 50 U/L High 15-37 [facility] Comment on above: Slight Lipemia, Resu lt may be falsely increased. Legionella Antigen Urineon 0 11-10-2024 LEGU URINE, CLEAN CATCH Legionella Antigen result interpretation: L pneumo Ag Ur Ql Negative Presumptive negative for Legionella pneumophila serogroup 1 antigen in urine, suggesting no recent or current infection. Legionella Ag, Urine Negative (See interpretation below) Normal [facility] Comment on above: Performed By: #### M 100.638 #### [facility] [address] [place], [address] Lymphocytes Auto (Unsp spec) [#/Vol]Ordered By: Hesham Rod on 11-10-2024 Lymphocytes (Bld) [#/Vol] 0.92 10*3/uL 0.83-4.51 [facility] Lymphocytes/100 WBC Auto (Un sp spec)Ordered By: Hesham Rod on 11-10-2024 Lymphocytes/100 WBC (Bld) 9.3 % Low 19-41 [facility] M R Staph Aureus DNA by PCRo n 11-10-2024 MRSA DNA ASSAY Negative Normal Negative [facility] Comment on above: Performed By: #### M 100.638 #### [facility] [address] [place], [address] MCV (mean corpuscular volume ) determinationOrdered By: Hesham Rod on 11-10-2024 MCV (RBC) [Entitic vol] 89.4 fL 81-99 [facility] MRSA detection PCROrdered By : Hesham Rod on 11-10-2024 Methicillin-Resist S.aureus DNA PCR Negative Negative [facility] Magnesiumon 11-10-2024 Magnesium [Mass/Vol] 2.2 mg/dL Normal 1.6-2.6 [facility] Comment on above: Result Comment: Slig ht Lipemia, Result may be falsely increased. Performed By: #### L 500.2500, L100.0100 #### [facility] [address] [place], [address] Magnesium measurementOrdered By: Hesham Rod on 11-10-2024 Magnesium [Mass/Vol] 2.2 mg/dL 1.6-2.6 [facility] Comment on above: Slight Lipemia, Resu lt may be falsely increased. Mean corpuscular hemoglobin (MCH) determinationOrdered By: Hesham Rod on 11-10-2024 MCH (RBC) [Entitic mass] 28.6 pg 27.0-32.0 [facility] Mean corpuscular hemoglobin concentration (MCHC) determinationOrdered By: Hesham Rod on 11-10-2024 MCHC (RBC) [Mass/Vol] 32.0 g/dL 32-36 [facility] Comment on above: Delta: 33.7 on 11/09-1907H&H CHNAGE Mean platelet volume determi nationOrdered By: Hesham Rod on 11-10-2024 Platelet mean volume (Bld) [Entitic vol] 9.2 fL 6.2-12.0 [facility] Monocyte percentageOrdered B y: Hesham Rod on 11-10-2024 Monocytes/100 WBC (Bld) 1.6 % 0-10 [facility] Neutrophil percentageOrdered By: Hesham Rod on 11-10-2024 Neutrophils/100 WBC (Bld) 88.2 % High 47-70 [facility] Nucleated red blood cell per centageOrdered By: Hesham Rod on 11-10-2024 Nucleated RBC/100 WBC (Bld) [Ratio] 0 % 0-5 [facility] Osmolality (U) [Osmolality]O rdered By: Hesham Rod on 11-10-2024 Urine Osmolality 201 mOsm/KG >50 [facility] Comment on above: Normal Urine Referen ce Ranges Random: 50 - 1200 mOsm/kg H20 depending on fluid intake Random: >850 mOsm/kg after 12 hour fluid restriction 24 hour: ~300 - 900 mOsm/kg H2O Osmolality, Serumon 11-10-19 25 OSMOLALITY,SER 283 mOsm/KG Normal 275-295 [facility] Comment on above: Performed By: #### L 100.0100 #### [facility] [address] [place], [place] [address], [place], [id number] Osmolality, Urineon 11-10-19 25 OSMOLALITY,UR 201 mOsm/KG Normal [facility] Comment on above: Result Comment: Normal Urine Reference Ranges Random: 50 - 1200 mOsm/kg H20 depending on fluid intake Random: >850 mOsm/kg after 12 hour fluid restriction 24 hour: 300 - 900 mOsm/kg H2O Performed By: #### M 100.638 #### [facility] [address] [place], [place], [id number] Osmolality, serumOrdered By: Hesham Rod on 11-10-2024 Serum Osmolality 283 mOsm/KG 275-295 [facility] Phosphoruson 11-10-2024 Phosphate [Mass/Vol] 3.2 mg/dL Normal 2.5-4.9 [facility] Comment on above: Result Comment: Slig ht Lipemia, Result may be falsely increased. Performed By: #### L 500.2500, L100.0100 #### [facility] [address] [place], [address] Phosphorus measurementOrdere d By: Hesham Rod on 11-10-2024 Phosphorus Level 3.2 mg/dL 2.5-4.9 [facility] Comment on above: Slight Lipemia, Resu lt may be falsely increased. Platelet countOrdered By: Carlos Rod on 11-10-2024 Platelets (Bld) [#/Vol] 223 10*3/uL 150-450 [facility] Potassium measurementOrdered By: Hesham Rod on 11-10-2024 Potassium [Moles/Vol] 3.8 mmol/L 3.5-5.1 [facility] Comment on above: Slight Lipemia, Resu lt may be falsely increased. RBC Auto (Bld) [#/Vol]Ordere d By: Hesham Rod on 11-10-2024 RBC (Bld) [#/Vol] 4.23 10*6/uL 4.2-5.4 [facility] RESPIRATORY PANEL MOLECULARo n 11-10-2024 [...] Not Detected RSV B Not Detected Normal [facility] Comment on above: Performed By: #### M 100.638 #### [facility] [address] [place], [address] Respiratory pathogens DNA an d RNA panel LUIS M+probe (Resp)Ordered By: Hesham Rod on 11-10-2024 Respiratory Panel (PCR) [facility] Serum anion gap measurementO rdered By: Hesham Rod on 11-10-2024 Anion gap [Moles/Vol] 10 mmol/L 5-15 [facility] Serum globulin measurementOr dered By: Hesham Rod on 11-10-2024 Globulin (S) [Mass/Vol] 4.3 g/dL High 2.2-4.2 [facility] Serum or plasma alanine angulo otransferase (ALT) measurementOrdered By: Hesham Rod on 11-10-2024 ALT [Catalytic activity/Vol] 90 U/L High 13-56 [facility] Comment on above: Slight Lipemia, Resu lt may be falsely increased. Serum or plasma albumin lawrence urement (mass/volume)Ordered By: Hesham Rod on 11-10-2024 Albumin [Mass/Vol] 3.1 g/dL Low 3.2-5.0 [facility] Serum or plasma alkaline jakob sphatase measurementOrdered By: Hesham Rod on 11-10-2024 ALP [Catalytic activity/Vol] 159 U/L High 45-117 [facility] Serum or plasma calcium lawrence urement (mass/volume)Ordered By: Hesham Rod on 11-10-2024 Calcium [Mass/Vol] 8.5 mg/dL 8.5-10.1 [facility] Comment on above: Slight Lipemia, Resu lt may be falsely increased. Serum or plasma creatinine m easurement (mass/volume)Ordered By: Hesham Rod on 11-10-2024 Creatinine [Mass/Vol] 0.43 mg/dL Low 0.55-1.02 [facility] Comment on above: Slight Lipemia, Resu lt may be falsely increased.The validity of the calculated GFR & GFRAA in patients over 70 years has not been determined. Clinical correlation is essential. Serum or plasma urea nitroge n measurement (mass/volume)Ordered By: Hesham Rod on 11-10-2024 Urea nitrogen [Mass/Vol] 10 mg/dL 7-18 [facility] Comment on above: Slight Lipemia, Resu lt may be falsely increased. Sodium levelOrdered By: Bennie Rod on 11-10-2024 Sodium [Moles/Vol] 136 mmol/L 136-145 [facility] Strep pneumoniae Antig(UR,CS F)on 11-10-2024 STPAG URINE, CLEAN CATCH URINE INTERPRETATION Strep pneumoniae Antig(UR,CSF) Negative Urine Presumptive negative for pneumococcal pneumonia, suggesting no current or recent pneumococcal infection. Infection due to S pneumoniae cannot be ruled out since the antigen present in the sample may be below the detection limit of the test. Strep pneumo Test Negative URINE (See interpretation below) Normal [facility] Comment on above: Performed By: #### M 100.638 #### [facility] [address] [place], [address] Streptococcus pneumoniae ant igen assayOrdered By: Hesham Rod on 11-10-2024 Streptococcus pneumoniae Antigen (M [facility] TSH QnOrdered By: Hesham maynard on 11-10-2024 Thyroid Stimulating Hormone (TSH) 0.831 uIU/mL 0.358-3.740 [facility] Thyroid Stim Hormone (TSH)on 11-10-2024 TSH 0.831 uIU/mL Normal 0.358-3.740 [facility] Comment on above: Performed By: #### M 100.678 #### [facility] [address] [place], [place], [id number] Total proteinOrdered By: Wes Rod on 11-10-2024 Protein [Mass/Vol] 7.4 g/dL 6.4-8.2 [facility] Comment on above: Slight Lipemia, Resu lt may be falsely increased. White blood cell (WBC) count Ordered By: Hesham Rod on 11-10-2024 WBC (Bld) [#/Vol] 9.9 10*3/uL 4.4-11.0 [facility] 12 Lead EKGon 11-09-2024 12 Lead EKG [facility] Cardiovascular Services [address] [place] [address] 12 Lead EKG 11/09/242024 MR#: [id number] Acct: [id number] Name: BRENDA LE Rep #: [id number] : 1965 58 From: Gary Bose MD Attending Dr: Dr. Ana Lilia Lebron DO Status: A DM IN Ordering Dr: Francisco Thompson DO Date: 11/09/24 [place] [facility] [place] Sex: F C Admitted: 11/09/24 Test Reason [...] ECG Confirmed by TAMMY SANDERS, GLORIA ([id number]), editor map CRISTAL OTT ([id number]) on 11/11/2024 6:40:18 AM Referred By: Confirmed By: GLORIA BOSE MD 11/11/24 0640 Date Gary Bose MD CC: ESEQUIEL Salmon; Dr. Francisco Thompson DO; Dr. Ana Lilia Lebron DO Signed Normal [facility] Basic Metabolic Profile (BMP )on 11-09-2024 BUN/CRE 25.0 RATIO High 10-20 [facility] Comment on above: Performed By: #### L 500.2500, L100.0100 #### [facility] [address] [place], [address] CA,Total 9.2 mg/dL Normal 8.5-10.1 [facility] Comment on above: Performed By: #### L 500.2500, L100.0100 #### [facility] [address] [place], [address] Chloride [Moles/Vol] 100 mmol/L Normal 98-107 [facility] Comment on above: Performed By: #### L 500.2500, L100.0100 #### [facility] [address] [place], [address] CO2 [Moles/Vol] 21.0 mmol/L Normal 21.0-32.0 [facility] Comment on above: Performed By: #### L 500.2500, L100.0100 #### [facility] [address] [place], [address] Creatinine [Mass/Vol] 0.56 mg/dL Normal 0.55-1.02 [facility] Comment on above: Result Comment: The validity of the calculated GFR GFRAA in patients over 70 years has not been determined. Clinical correlation is essential. Performed By: #### L 500.2500, L100.0100 #### [facility] [address] [place], [address] ECRCL 105.16 ml/min Normal [facility] Comment on above: Performed By: #### L 500.2500, L100.0100 #### [facility] [address] [place], [address] EST GFR - AA 142 mL/min Normal >60 [facility] Comment on above: Result Comment: Afri can Citizen Of [place] GFR Calc Performed By: #### L 500.2500, L100.0100 #### [facility] [address] [place], [address] GAP 9 Normal 5-15 [facility] Comment on above: Performed By: #### L 500.2500, L100.0100 #### [facility] [address] [place], [address] GFR/1.73 sq M.predicted among non-blacks MDRD (S/P/Bld) [Vol rate/Area] 117 mL/min/{1.73_m2} Normal >60 [facility] Comment on above: Result Comment: Non- GFR Calc Performed By: #### L 500.2500, L100.0100 #### [facility] [address] [place], [address] Glucose [Mass/Vol] 164 mg/dL High 74-106 [facility] Comment on above: Result Comment: Fast ing Glucose result greater than or equal to 126 mg/dL suggests DIABETES MELLITUS per A.D.A. criteria. Performed By: #### L 500.2500, L100.0100 #### [facility] [address] [place], [address] Potassium [Moles/Vol] 3.8 mmol/L Normal 3.5-5.1 [facility] Comment on above: Performed By: #### L 500.2500, L100.0100 #### [facility] [address] [place], [address] Sodium [Moles/Vol] 130 mmol/L Low 136-145 [facility] Comment on above: Performed By: #### L 500.2500, L100.0100 #### [facility] [address] [place], [address] Urea nitrogen [Mass/Vol] 14 mg/dL Normal 7-18 [facility] Comment on above: Performed By: #### L 500.2500, L100.0100 #### [facility] [address] [place], [address] Bedside Glucoseon 11-09-2024 FINGERSTICK GLU 154 mg/dL High 74-106 [facility] Comment on above: Result Comment: DANIEL GEMENT OF PATIENT CARE PER NURSING PROTOCOL Performed By: #### L 500.4050, L501.4020, L501.2450, L100.0500 #### [facility] [address] [place], [address] Bilirubin directOrdered By: Francisco Thompson on 11-09-2024 Bilirubin.direct [Mass/Vol] 0.28 mg/dL 0.00-0.30 [facility] Blood cultureOrdered By: Jovi Thompson on 11-09-2024 Bacteria identified Cx Nom (Bld) No growth in 5 days. [facility] CBC W/Diff, Automatedon 10-14 Absolute Lymph 1.89 X10 3/uL Normal 0.83-4.51 [facility] Comment on above: Performed By: #### L 500.2500, L100.0100 #### [facility] [address] [place], [address] Absolute Neut 8.8 X10 3/uL High 2.0-7.7 [facility] Comment on above: Performed By: #### L 500.2500, L100.0100 #### [facility] [address] [place], [address] Basophils/100 WBC (Bld) 0.5 % Normal 0-1 [facility] Comment on above: Performed By: #### L 500.2500, L100.0100 #### [facility] [address] [place], [address] Eosinophils/100 WBC (Bld) 0.1 % Normal 0-5 [facility] Comment on above: Performed By: #### L 500.2500, L100.0100 #### [facility] [address] [place], [address] Erythrocyte distribution width (RBC) [Ratio] 14.2 % Normal 11.6-14.6 [facility] Comment on above: Performed By: #### L 500.2500, L100.0100 #### [facility] [address] [place], [address] Hematocrit (Bld) [Volume fraction] 39.8 % Normal 37-47 [facility] Comment on above: Performed By: #### L 500.2500, L100.0100 #### [facility] [address] [place], [address] Hemoglobin (Bld) [Mass/Vol] 13.4 g/dL Normal 12.0-15.0 [facility] Comment on above: Performed By: #### L 500.2500, L100.0100 #### [facility] [address] [place], [address] IG% 0.400 Normal 0.0-0.9 [facility] Comment on above: Result Comment: IG% - Immature Granulocytes (promyelocytes, myelocytes and metamyelocytes) > 1% indicates that a LEFT SHIFT is Present. Performed By: #### L 500.2500, L100.0100 #### [facility] [address] [place], [address] Lymphocytes/100 WBC (Bld) 15.5 % Low 19-41 [facility] Comment on above: Performed By: #### L 500.2500, L100.0100 #### [facility] [address] [place], [address] MCH (RBC) [Entitic mass] 29.1 pg Normal 27.0-32.0 [facility] Comment on above: Performed By: #### L 500.2500, L100.0100 #### [facility] [address] [place], [address] MCHC (RBC) [Mass/Vol] 33.7 g/dL Normal 32-36 [facility] Comment on above: Performed By: #### L 500.2500, L100.0100 #### [facility] [address] [place], [address] MCV (RBC) [Entitic vol] 86.3 fL Normal 81-99 [facility] Comment on above: Performed By: #### L 500.2500, L100.0100 #### [facility] [address] [place], [address] Monocytes/100 WBC (Bld) 12.0 % High 0-10 [facility] Comment on above: Performed By: #### L 500.2500, L100.0100 #### [facility] [address] [place], [address] Neutrophils/100 WBC (Bld) 71.5 % High 47-70 [facility] Comment on above: Performed By: #### L 500.2500, L100.0100 #### [facility] [address] [place], [address] Nucleated RBC (Bld) [#/Vol] 0 10*3/uL Normal 0-5 [facility] Comment on above: Performed By: #### L 500.2500, L100.0100 #### [facility] [address] [place], [address] Platelet mean volume (Bld) [Entitic vol] 9.3 fL Normal 6.2-12.0 [facility] Comment on above: Performed By: #### L 500.2500, L100.0100 #### [facility] [address] [place], [address] Platelets (Bld) [#/Vol] 239 10*3/uL Normal 150-450 [facility] Comment on above: Performed By: #### L 500.2500, L100.0100 #### [facility] [address] [place], [address] RBC (Bld) [#/Vol] 4.61 10*6/uL Normal 4.2-5.4 [facility] Comment on above: Performed By: #### L 500.2500, L100.0100 #### [facility] [address] [place], [address] RDW SD 44.9 fl High 35.1-43.9 [facility] Comment on above: Performed By: #### L 500.2500, L100.0100 #### [facility] [address] [place], [address] WBC (Bld) [#/Vol] 12.2 10*3/uL High 4.4-11.0 [facility] Comment on above: Performed By: #### L 500.2500, L100.0100 #### [facility] [address] [place], [address] CNOVon 11-09-2024 CNOV Normal [facility] Chest 1 View (Portable)on Chest 1 View (Portable) [facility] Imaging Services [address] [place] [address] Chest 1 View (Portable) MR#: [id number] Acct: [id number] Name: BRENDA LE Rep #: [id number] : 1965 F 58 From: Adriano Mejia DO PCP: ESEQUIEL Headley Status: PRE ER Study: Chest 1 View (Portable) Date of Exam: 11/09/24 Exam# [id number] Ordering Dr: Provider,Steve P. PROCEDURE: CHEST 1 [...] process. Follow-up to resolution recommended. Reading Location: [facility] CC: ESEQUIEL Salmon; ED PHYSICIAN PROVIDER Recruiter Specialist: Signed Normal [facility] Emergency Department Summary on 11-09-2024 Emergency Department Summary [facility] Medical Records Department [address] [place] [address] Emergency Department Summary 11/09/24 MR#: [id number] Acct: [id number] Name: BRENDA LE Rep #: [id number] : 1965 58 From: Francisco Thompson DO PCP: Shelia Salmon, MACHINE TOOL DESIGNER Status:REG ER Location: ED HPI History of Present Illness Chief Complaint: Shortness of Breath Informant: patient and mental health staff Narrative Narrative: 58-year-old female from [facility] presenting to the emergency room with fever and cough. There is reported that around the of this month she had a viral URI. hospital tray service worker states that today she looked much ill or and took her to urgent care where urgent care felt that she had pneumonia. They recommended that she come to emergency when it was discovered that the support group manager stated they cannot give her any medicine [...] She does have a history of COPD. 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 Normal [facility] H AND P Exam - [facility]iston 11-09-2024 H&P Exam - Hospitalist [facility] Medical Records Department [address] [place] [address] H P Exam - Hospitalist 11/09/24 2321 MR#: [id number] Acct: [id number] Name: BRENDA LE Rep #: [id number] : 1965 58 From: Hesham Amato DO PCP: Shelia Salmon, MACHINE TOOL DESIGNER Status:ADM IN [place] [facility] [id number] HPI - General General Date of Admission: [...] omeprazole who resides at a local psychiatric half-way who presents to [facility] ER after staff noted patient complaining of shortness of breath and wheezing. Ms. Le is not a fully-reliable historian at this time so information was primarily gathered from chart, medical staff and computer. According to the records the patient's territory sales professional informed the ER physician that she first became ill around November 02, 2024 with a viral URI. She was subsequently taken to urgent care with patient suspected to have Pneumonia complicated by AE COPD with patient recommended to start antibiotic and steroid therapy but territory sales professional unable to administer medications without a formal MAR to sign off on - which would not be available until tomorrow morning so she was brought in to the ER for further evaluation and treatment. Her territory sales professional went on to report that she looked [...] is expected to extend beyond 2 midnights. [facility] Medical History Schizophrenia LIDA on [...] 325 mg tablet,delayed 325 mg PO DAILY@1600 [facility] 07/22/18 07/30/21 History release omeprazole 20 [...] Unknown Rx (more content not included)... Normal [facility] INFLUENZA A&B MOLECULAR (POC )on 11-09-2024 Flu A (POCT) Negative Negative [facility] Flu B (POCT) Negative Negative [facility] Procedural Control Valid [facility] Location:[facility], [address] [facility] [address], [place], [address] [facility] Influenza virus A and B and SARS-CoV-2 (COVID-19) and Respiratory syncytial virus RNAOrdered By: Francisco Thompson on 11-09-2024 SARS-CoV-2 (COVID-19) RNA LUIS M+probe Ql (Unsp spec) [facility] [employer] normalized rat io (INR) calculationOrdered By: Francisco Thompson on 11-09-2024 INR Coag (Bld) [Relative time] 1.1 {INR} [facility] Lactic Acidon 11-09-2024 Lactate [Moles/Vol] 1.3 mmol/L Normal 0.4-1.9 [facility] Comment on above: Order Comment: Y Performed By: #### L 100.0100 #### [facility] [address] [facility] [id number] Lactic acid measurementOrder ed By: Francisco Thompson on 11-09-2024 Lactate [Moles/Vol] 1.3 mmol/L 0.4-2.0 [facility] Liver Profileon 11-09-2024 Albumin [Mass/Vol] 3.5 g/dL Normal 3.2-5.0 [facility] Comment on above: Performed By: #### M 100.638 #### [facility] [address] [facility] [id number] (044 ALK P 188 U/L High 45-117 [facility] Comment on above: Performed By: #### M 100.638 #### [facility] [address] [place], [address] ALT [Catalytic activity/Vol] 103 U/L High 13-56 [facility] Comment on above: Performed By: #### M 100.638 #### [facility] [address] [place], [address] AST [Catalytic activity/Vol] 83 U/L High 15-37 [facility] Comment on above: Performed By: #### M 100.638 #### [facility] [address] [place], [address] Bilirubin [Mass/Vol] 0.80 mg/dL Normal 0.20-1.00 [facility] Comment on above: Result Comment: For patients on eltrombopag therapy, use of Dimension Ovalo TBIL is not recommended. Performed By: #### M 100.638 #### [facility] [address] [place], [address] Bilirubin.direct [Mass/Vol] 0.28 mg/dL Normal 0.00-0.30 [facility] Comment on above: Performed By: #### M 100.638 #### [facility] [address] [place], [address] Globulin (S) [Mass/Vol] 4.4 g/dL High 2.2-4.2 [facility] Comment on above: Performed By: #### M 100.638 #### [facility] [address] [place], [address] T PROT 7.9 g/dL Normal 6.4-8.2 [facility] Comment on above: Performed By: #### M 100.638 #### [facility] [address] [place], [address] M100.678on 11-09-2024 M100.678 SARS-CoV-2 (COVID 19 ) Negative INFLUENZA A Negative INFLUENZA B Negative RSV PCR Negative Normal [facility] Comment on above: Performed By: #### L 500.4050, L501.4020, L501.2450, L100.0500 #### [facility] [address] [place], [address] Prothrombin Time w/INRon INR Coag (PPP) [Relative time] 1.1 {INR} Normal [facility] Comment on above: Performed By: #### L 100.0100 #### [facility] [address] [place], [place], [address] PT Coag (PPP) [Time] 13.9 s Normal 11.7-14.9 [facility] Comment on above: Performed By: #### L 100.0100 #### [facility] [address] [place], [place], [id number] Prothrombin timeOrdered By: Francisco Thompson on 11-09-2024 PT Coag (PPP) [Time] 13.9 s 11.7-14.9 [facility] XR CHEST 2V FRONTAL/LATon XR CHEST 2V FRONTAL/LAT Normal [facility] XR Chest PA and Lateralon IMPRESSION: Patchy density in the lingula raises the possibility of pneumonia. Recruiter Specialist: MILDRED Transcribe Date/Time: Nov 09 2024 5:44P Dictated by : HESHAM CEDILLO MD This examination was interpreted and the report reviewed and electronically signed by: HESHAM CEDILLO MD on Nov 09 2024 5:46PM [facility] DIVISION OF RADIOLOGY * * *Final Report* [...] the thoracic spine. DIVISION OF RADIOLOGY Provider, [facility] - 11/09/2024 * * *Final Report* [...] the lingula raises the possibility of pneumonia. Recruiter Specialist: PSCStefania Transcribe Date/Time: Nov 09 2024 5:44P Dictated by : HESHAM CEDILLO MD This examination was interpreted and the report reviewed and electronically signed by: HESHAM CEDILLO MD on Nov 09 2024 5:46PM EST [facility] Radiology Study observation (narrative) Pola etienne [facility] XR Chest PA and LateralOrder ed By: Ccf Provider on 11-09-2024 [facility] CNPNon 11-05-2024 CNPN Normal [facility] Aldolase SerPl-cCncon 2024 Aldolase [Catalytic activity/Vol] 5.2 mU/mL Normal 1.5-8.1 [facility] Comment on above: Order Comment: Rand gonzalez Type: BLOOD SPECIMENOrdering Facility: [facility] Address: [address] [place] [address] Result Comment: This test was developed, and its performance characteristics determined by the [facility] Department of Pathology and Laboratory Medicine. It has not been cleared or approved by the FDA. The [facility] Department of Pathology and Laboratory Medicine is regulated under CLIA as qualified to perform high-complexity testing. This test is used for clinical purposes. It should not be regarded as investigational or for research. Performed By: #### 1 761-6 ####[facility] LABCLIA [id number] [place] [address] [place] CBC W Auto Differential pane l (Bld)on 11-02-2024 Basophils (Bld) [#/Vol] 0.06 10*3/uL Normal <0.11 [facility] Comment on above: Order Comment: Speci men Type: BLOOD SPECIMENOrdering Facility: [facility] Address: [address] [place] [address] Performed By: #### 5 7021-8 ####[facility] LABCLIA [id number] [place] [address] [place] Basophils/100 WBC (Bld) 0.5 % Normal [facility] Comment on above: Order Comment: Speci men Type: BLOOD SPECIMENOrdering Facility: [facility] Address: [address] [place] [address] Performed By: #### 5 7021-8 ####[facility] LABCLIA [id number] [place] [address] [place] Differential cell count method Nom (Bld) Auto Normal [facility] Comment on above: Order Comment: Speci men Type: BLOOD SPECIMENOrdering Facility: [facility] Address: [address] [place] [address] Performed By: #### 5 7021-8 ####[facility] LABCLIA [id number] [place] [address] [place] Eosinophils (Bld) [#/Vol] 10*3/uL Normal <0.46 [facility] Comment on above: Order Comment: Speci men Type: BLOOD SPECIMENOrdering Facility: [facility] Address: [address] [place] [address] Performed By: #### 5 7021-8 ####[facility] LABCLIA [id number] [place] [address] [place] Eosinophils/100 WBC (Bld) 0.1 % Normal [facility] Comment on above: Order Comment: Speci men Type: BLOOD SPECIMENOrdering Facility: [facility] Address: [address] [place] [address] Performed By: #### 5 7021-8 ####[facility] LABCLIA [id number] [place] [address] [place] Erythrocyte distribution width (RBC) [Ratio] 14.3 % Normal 11.5-15.0 [facility] Comment on above: Order Comment: Speci men Type: BLOOD SPECIMENOrdering Facility: [facility] Address: [address] [place] [address] Performed By: #### 5 7021-8 ####[facility] LABCLIA [id number] [place] [address] [place] Hematocrit (Bld) [Volume fraction] 44.1 % Normal 36.0-46.0 [facility] Comment on above: Order Comment: Speci men Type: BLOOD SPECIMENOrdering Facility: [facility] Address: [address] [place] [address] Performed By: #### 5 7021-8 ####[facility] LABIA [id number] [place] [address] [place] Hemoglobin (Bld) [Mass/Vol] 13.8 g/dL Normal 11.5-15.5 [facility] Comment on above: Order Comment: Speci men Type: BLOOD SPECIMENOrdering Facility: [facility] Address: [address] [place] [address] Performed By: #### 5 7021-8 ####[facility] LABIA [id number] [place] [address] [place] Immature granulocytes (Bld) [#/Vol] 0.05 10*3/uL Normal <0.10 [facility] Comment on above: Order Comment: Speci men Type: BLOOD SPECIMENOrdering Facility: [facility] Address: [address] [place] [address] Performed By: #### 5 7021-8 ####[facility] LABCLIA [id number] [place] [address] [place] Immature granulocytes/100 WBC (Bld) 0.5 % Normal [facility] Comment on above: Order Comment: Speci men Type: BLOOD SPECIMENOrdering Facility: [facility] Address: [address] [place] [address] Performed By: #### 5 7021-8 ####[facility] LABCLIA [id number] [place] [address] [place] Lymphocytes (Bld) [#/Vol] 2.33 10*3/uL Normal 1.00-4.00 [facility] Comment on above: Order Comment: Speci men Type: BLOOD SPECIMENOrdering Facility: [facility] Address: [address] [place] [address] Performed By: #### 5 7021-8 ####[facility] LABCLIA [id number] [place] [address] [place] Lymphocytes/100 WBC (Bld) 21.0 % Normal [facility] Comment on above: Order Comment: Speci men Type: BLOOD SPECIMENOrdering Facility: [facility] Address: [address] [place] [address] Performed By: #### 5 7021-8 ####[facility] LABCLIA [id number] [place] [address] [place] MCH (RBC) [Entitic mass] 28.4 pg Normal 26.0-34.0 [facility] Comment on above: Order Comment: Speci men Type: BLOOD SPECIMENOrdering Facility: [facility] Address: [address] [place] [address] Performed By: #### 5 7021-8 ####[facility] LABCLIA [id number] [place] [address] [place] MCHC (RBC) [Mass/Vol] 31.3 g/dL Normal 30.5-36.0 [facility] Comment on above: Order Comment: Speci men Type: BLOOD SPECIMENOrdering Facility: [facility] Address: [address] [place] [address] Performed By: #### 5 7021-8 ####[facility] LABCLIA [id number] [place] [address] [place] MCV (RBC) [Entitic vol] 90.7 fL Normal 80.0-100.0 [facility] Comment on above: Order Comment: Speci men Type: BLOOD SPECIMENOrdering Facility: [facility] Address: [address] [place] [address] Performed By: #### 5 7021-8 ####[facility] LABCLIA [id number] [place] [address] [place] Monocytes (Bld) [#/Vol] 0.76 10*3/uL Normal <0.87 [facility] Comment on above: Order Comment: Speci men Type: BLOOD SPECIMENOrdering Facility: [facility] Address: [address] [place] [address] Performed By: #### 5 7021-8 ####[facility] LABCLIA [id number] [place] [address] [place] Monocytes/100 WBC (Bld) 6.9 % Normal [facility] Comment on above: Order Comment: Speci men Type: BLOOD SPECIMENOrdering Facility: [facility] Address: [address] [place] [address] Performed By: #### 5 7021-8 ####[facility] LABCLIA [id number] [place] [address] [place] Neutrophils (Bld) [#/Vol] 7.86 10*3/uL High 1.45-7.50 [facility] Comment on above: Order Comment: Speci men Type: BLOOD SPECIMENOrdering Facility: [facility] Address: [address] [place] [address] Performed By: #### 5 7021-8 ####[facility] LABCLIA [id number] [place] [address] [place] Neutrophils/100 WBC (Bld) 71.0 % Normal [facility] Comment on above: Order Comment: Speci men Type: BLOOD SPECIMENOrdering Facility: [facility] Address: [address] [place] [address] Performed By: #### 5 7021-8 ####[facility] LABCLIA [id number] [place] [address] [place] Nucleated RBC (Bld) [#/Vol] 10*3/uL Normal <0.01 [facility] Comment on above: Order Comment: Speci men Type: BLOOD SPECIMENOrdering Facility: [facility] Address: [address] [place] [address] Performed By: #### 5 7021-8 ####[facility] LABIA [id number] [place] [address] [place] Nucleated RBC/100 WBC (Bld) [Ratio] 0.0 /100 WBC Normal [facility] Comment on above: Order Comment: Speci men Type: BLOOD SPECIMENOrdering Facility: [facility] Address: [address] [place] [address] Performed By: #### 5 7021-8 ####[facility] LABCLIA [id number] [place] [address] [place] Platelet mean volume (Bld) [Entitic vol] 12.2 fL Normal 9.0-12.7 [facility] Comment on above: Order Comment: Speci men Type: BLOOD SPECIMENOrdering Facility: [facility] Address: [address] [place] [address] Performed By: #### 5 7021-8 ####[facility] LABIA [id number] [place] [address] [place] Platelets (Bld) [#/Vol] 129 10*3/uL Low 150-400 [facility] Comment on above: Order Comment: Speci men Type: BLOOD SPECIMENOrdering Facility: [facility] Address: [address] [place] [address] Performed By: #### 5 7021-8 ####[facility] LABIA [id number] [address] [address] [place] RBC (Bld) [#/Vol] 4.86 10*6/uL Normal 3.90-5.20 [facility] Comment on above: Order Comment: Speci men Type: BLOOD SPECIMENOrdering Facility: [facility] Address: [address] [place] [address] Performed By: #### 5 7021-8 ####[facility] LABIA [id number] [place] [address] [place] WBC (Bld) [#/Vol] 11.07 10*3/uL High 3.70-11.00 [facility] Comment on above: Order Comment: Speci men Type: BLOOD SPECIMENOrdering Facility: [facility] Address: [address] [place] [address] Performed By: #### 5 7021-8 ####[facility] [id number] [place] [address] [place] CK SerPl-cCncon 11-02-2024 CK [Catalytic activity/Vol] 51 U/L Normal 42-196 [facility] Comment on above: Order Comment: Speci men Type: BLOOD SPECIMENOrdering Facility: [facility] Address: [address] [place] [address] Performed By: #### 2 157-6, 10083-5, LIPNF ####[facility] [id number] [place] [id number] [place] CNOVon 11-02-2024 CNOV Normal [facility] Comprehensive metabolic 2000 panelon 11-02-2024 Albumin [Mass/Vol] 4.4 g/dL Normal 3.9-4.9 [facility] Comment on above: Order Comment: Speci men Type: BLOOD SPECIMENOrdering Facility: [facility] Address: [address] [place] [address] Performed By: #### 2 157-6, 57873-2, LIPNF ####[facility] LABCLIA [id number] [place] [address] [place] ALP [Catalytic activity/Vol] 133 U/L High 34-123 [facility] Comment on above: Order Comment: Speci men Type: BLOOD SPECIMENOrdering Facility: [facility] Address: [address] [place] [address] Performed By: #### 2 157-6, 78979-7, LIPNF ####[facility] LABCLIA [id number] [place] [address] [place] ALT [Catalytic activity/Vol] 43 U/L High 7-38 [facility] Comment on above: Order Comment: Speci men Type: BLOOD SPECIMENOrdering Facility: [facility] Address: [address] [place] [address] Performed By: #### 2 157-6, 67545-1, LIPNF ####[facility] LABCLIA [id number] [place] [address] [place] Anion gap [Moles/Vol] 13 mmol/L Normal 8-15 [facility] Comment on above: Order Comment: Speci men Type: BLOOD SPECIMENOrdering Facility: [facility] Address: [address] [place] [address] Performed By: #### 2 157-6, 88883-2, LIPNF ####[facility] LABCLIA [id number] [place] [address] [place] AST [Catalytic activity/Vol] 23 U/L Normal 13-35 [facility] Comment on above: Order Comment: Speci men Type: BLOOD SPECIMENOrdering Facility: [facility] Address: [address] [place] [address] Performed By: #### 2 157-6, 92500-7, LIPNF ####[facility] LABCLIA [id number] [address] [id number] [address] [place] Bilirubin [Mass/Vol] 0.2 mg/dL Normal 0.2-1.3 [facility] Comment on above: Order Comment: Speci men Type: BLOOD SPECIMENOrdering Facility: [facility] Address: [address] [place] [address] Performed By: #### 2 157-6, 96870-3, LIPNF ####[facility] LABCLIA [id number] [place] [address] [place] Calcium [Mass/Vol] 9.2 mg/dL Normal 8.5-10.2 [facility] Comment on above: Order Comment: Speci men Type: BLOOD SPECIMENOrdering Facility: [facility] Address: [address] [place] [address] Performed By: #### 2 157-6, 69456-5, LIPNF ####[facility] LABCLIA [id number] [place] [address] [place] Chloride [Moles/Vol] 93 mmol/L Low 98-107 [facility] Comment on above: Order Comment: Speci men Type: BLOOD SPECIMENOrdering Facility: [facility] Address: [address] [place] [address] Performed By: #### 2 157-6, 89525-7, LIPNF ####[facility] LABCLIA [id number] [place] [address] [place] CO2 [Moles/Vol] 25 mmol/L Normal 22-30 [facility] Comment on above: Order Comment: Speci men Type: BLOOD SPECIMENOrdering Facility: [facility] Address: [address] [place] [address] Performed By: #### 2 157-6, 00334-5, LIPNF ####[facility] LABCLIA [id number] [place] [id number] [place] Creatinine [Mass/Vol] 0.55 mg/dL Low 0.58-0.96 [facility] Comment on above: Order Comment: Rand gonzalez Type: BLOOD SPECIMENOrdering Facility: [facility] Address: [address] [place] [address] Performed By: #### 2 157-6, 82662-0, LIPNF ####[facility] LABCLIA [id number] [place] [address] [place] Creatinine and Glomerular filtration rate.predicted panel (S/P/Bld) 105 mL/min/1.73m??? Normal >=60 [facility] Comment on above: Order Comment: Rand gonzalez Type: BLOOD SPECIMENOrdering Facility: [facility] Address: [address] [place] [address] Result Comment: Gia mated Glomerular Filtration Rate [...] actual GFR. Performed By: #### 2 157-6, 93900-4, LIPNF ####[facility] LABCLIA [id number] [place] [id number] [place] Glucose [Mass/Vol] 138 mg/dL High 74-99 [facility] Comment on above: Order Comment: Rand gonzalez Type: BLOOD SPECIMENOrdering Facility: [facility] Address: [address] [place] [address] Result Comment: The [place] Diabetes Association (ADA) provides guidance for cutoff [...] Medical Care in Diabetes 2016, [place] Diabetes Association. Diabetes Care. 2016.39(Suppl 1). Performed By: #### 2 157-6, 44503-5, LIPNF ####[facility] LABCLIA [id number] [address] [address] [place] Potassium [Moles/Vol] 4.3 mmol/L Normal 3.7-5.1 [facility] Comment on above: Order Comment: Speci men Type: BLOOD SPECIMENOrdering Facility: [facility] Address: [address] [place] [address] Performed By: #### 2 157-6, 85481-6, LIPNF ####[facility] LABIA [id number] [place] [address] [place] Protein [Mass/Vol] 7.4 g/dL Normal 6.3-8.0 [facility] Comment on above: Order Comment: Speci men Type: BLOOD SPECIMENOrdering Facility: [facility] Address: [address] [place] [address] Performed By: #### 2 157-6, 35851-0, LIPNF ####[facility] LABIA [id number] [place] [id number] [place] Sodium [Moles/Vol] 131 mmol/L Low 136-144 [facility] Comment on above: Order Comment: Speci men Type: BLOOD SPECIMENOrdering Facility: [facility] Address: [address] [place] [address] Performed By: #### 2 157-6, 40242-2, LIPNF ####[facility] LABIA [id number] [address] [address] [place] Urea nitrogen [Mass/Vol] 11 mg/dL Normal 7-21 [facility] Comment on above: Order Comment: Speci men Type: BLOOD SPECIMENOrdering Facility: [facility] Address: [address] [place] [address] Performed By: #### 2 157-6, 55369-1, LIPNF ####[facility] LABIA [id number] [address] [place] HbA1c (Bld)on 11-02-2024 Average glucose Estimated from glycated hemoglobin (Bld) [Mass/Vol] 146 mg/dL Normal [facility] Comment on above: Order Comment: Rand [facility] Type: BLOOD SPECIMENOrdering Facility: [facility] Address: [address] [place] [address] Result Comment: eAG: (Estimated average glucose) is a calculated value from HgbA1c and is client care representative of the average blood glucose level in the last 2-3 month period. Performed By: #### 5 5454-3 ####[facility] [id number] [address] STATES OF [facility] HbA1c (Bld) [Mass fraction] 6.7 % High 4.3-5.6 [facility] Comment on above: Order Comment: Rand [facility] Type: BLOOD SPECIMENOrdering Facility: [facility] Address: [address] [place] [address] Result Comment: [place] Diabetes Association guidelines indicate that patients with HgbA1c in the range 5.7-6.4% are at increased risk for development of diabetes, and intervention by lifestyle modification may be beneficial. HgbA1c greater or equal to 6.5% is considered diagnostic of diabetes. Performed By: #### 5 5454-3 ####[facility] LABIA [id number] [address] [place] LIPID PANEL, NONFASTINGon Cholesterol [Mass/Vol] 204 mg/dL High <200 [facility] Comment on above: Order Comment: Rand gonzalez Type: BLOOD SPECIMENOrdering Facility: [facility] Address: [address] [place] [address] Result Comment: <200 mg/dL, Desirable 200-239 mg/dL, Borderline high>239 mg/dL, High Performed By: #### 2 157-6, 02665-6, LIPNF ####[facility] LABCLIA [id number] [address] [place] HDL CHOLESTEROL, NF 39 mg/dL Low >39 [facility] Comment on above: Order Comment: Speci men Type: BLOOD SPECIMENOrdering Facility: [facility] Address: [address] [place] [address] Result Comment: 40-5 9 mg/dL, Acceptable>59 mg/dL, High: Negative risk factor for coronary heart disease<40 mg/dL, Low: Positive risk factor for coronary heart disease Performed By: #### 2 157-6, 48567-4, LIPNF ####[facility] LABCLIA [id number] [address] OF [facility] LDL CHOLESTEROL, NF 96 mg/dL Normal <100 [facility] Comment on above: Order Comment: Speci men Type: BLOOD SPECIMENOrdering Facility: [facility] Address: [address] [place] [address] Result Comment: <100 mg/dL, Optimal 100-129 mg/dL, Near optimal/above optimal 130-159 mg/dL, Borderline high 160-189 mg/dL, High>189 mg/dL, Very highSecondary prevention optimal LDL Cholesterol levels are recommended to be < 70 mg/dL Performed By: #### 2 157-6, 93120-5, LIPNF ####[facility] LABCLIA [id number] [address] OF [facility] LDL/HDL RATIO, NF 2.46 mg/dL Normal <2.54 [facility] Comment on above: Order Comment: Speci [facility] Type: BLOOD SPECIMENOrdering Facility: [facility] Address: [address] [place] [address] Result Comment: Refe josiahce:1. National Cholesterol Education Program ATP III Guideline At-A-Glance Quick Desk Reference: National Heart, Lung, and Blood [place]. National Institutes of Health. 2001: NIH Publication No. 01-3305.2. An International Atherosclerosis Society position paper: global recommendations for the management of dyslipidemia: executive summary, Atherosclerosis. 2014: 232(2):410-413. Performed By: #### 2 157-6, 43935-9, LIPNF ####[facility] LABCLIA [id number] [place] [address] [place] NON HDL CHOL, NF 165 mg/dL High <130 [facility] Comment on above: Order Comment: Speci men Type: BLOOD SPECIMENOrdering Facility: [facility] Address: [address] [place] [address] Result Comment: <130 mg/dL, Optimal 130-159 mg/dL, Near optimal/above optimal 160-189 mg/dL, Borderline high 190-219 mg/dL, High>219 mg/dL, Very highSecondary prevention optimal non HDL Cholesterol levels are recommended to be <100 mg/dL Performed By: #### 2 157-6, 94170-9, LIPNF ####[facility] LABCLIA [id number] [place] [address] [place] T CHOL/HDL RATIO NF 5.23 mg/dL High <5.10 [facility] Comment on above: Order Comment: Speci men Type: BLOOD SPECIMENOrdering Facility: [facility] Address: [address] [place] [address] Performed By: #### 2 157-6, 54018-9, LIPNF ####[facility] LABCLIA [id number] [place] [address] [place] TRIGLYCERIDES, NF 344 mg/dL High <150 [facility] Comment on above: Order Comment: Speci men Type: BLOOD SPECIMENOrdering Facility: [facility] Address: [address] [place] [address] Result Comment: <150 mg/dL, Normal 150-199 mg/dL, Borderline high 200-499 mg/dL, High>499 mg/dL, Very high Performed By: #### 2 157-6, 85285-5, LIPNF ####[facility] LABCLIA [id number] [place] [address] [place] VLDL CHOLESTEROL, NF 69 mg/dL High <30 [facility] Comment on above: Order Comment: Speci men Type: BLOOD SPECIMENOrdering Facility: [facility] Address: [address] [place] [address] Performed By: #### 2 157-6, 45881-2, LIPNF ####[facility] LABCLIA [id number] [place] [address] [place] XR LUMBAR 3V AP/LAT/L5-S1on 11-02-2024 XR LUMBAR 3V AP/LAT/L5-S1 Normal [facility] XR Lumbar spine 3 Viewson IMPRESSION: MILD DEGENERATIVE CHANGE Recruiter Specialist: MILDRED Transcribe Date/Time: Nov 02 2024 4:48P Dictated by : EUSEBIA MARIN MD This examination was interpreted and the report reviewed and electronically signed by: EUSEBIA MARIN MD on Nov 02 2024 4:52PM [facility] DIVISION OF RADIOLOGY * * *Final Report* [...] bony abnormality IMPRESSION IMPRESSION: MILD DEGENERATIVE CHANGE Recruiter Specialist: PSCB Transcribe Date/Time: Nov 02 2024 4:48P Dictated by : EUSEBIA MARIN MD This examination was interpreted and the report reviewed and electronically signed by: EUSEBIA MARIN MD on Nov 02 2024 4:52PM EST [facility] Radiology Study observation (narrative) [facility] XR Lumbar spine 3 ViewsOrder ed By: Ccf Provider on 11-02-2024 [facility] 12 Lead EKGon 10-14-2024 12 Lead EKG [facility] Cardiovascular Services [address] [place] [address] 12 Lead EKG 10/14/24 1615 MR#: [id number] Acct: [id number] Name: BRENDA LE Rep #: [id number] : 1965 58 From: Yovany Dimas MD [...] Confirmed by YOVANY DIMAS MD ([id number]), editor map ROSY CLINE ([id number]) on 10/15/2024 8:26:49 AM Referred By: Tae Holland Confirmed By: YOVANY DIMAS MD 10/15/24 0826 Date Yovany Dimas MD CC: ESEQUIEL Salmon; Dr. Tae Holland, DO Signed Normal [facility] Absolute neutrophil countOrd ered By: Lorraine Springer on 10-14-2024 Neutrophils (Bld) [#/Vol] 5.8 10*3/uL 2.0-7.7 [facility] Albumin to globulin ratioOrd ered By: Tae Holland on 10-14-2024 Albumin/Globulin [Mass ratio] 0.9 {ratio} 0.9-2.4 [facility] Basophil percentageOrdered B y: Lorraine Springer on 10-14-2024 Basophils/100 WBC (Bld) 0.5 % 0-1 [facility] Bilirubin, totalOrdered By: Tae Holland on 10-14-2024 Bilirubin [Mass/Vol] 0.50 mg/dL 0.20-1.00 [facility] Comment on above: For patients on eltr ombopag therapy, use of Dimension Ovalo TBIL is not recommended. Blood urea nitrogen (BUN)/cr eatinine ratioOrdered By: Tae Holland on 10-14-2024 Urea nitrogen/Creatinine [Mass ratio] 31.2 mg/mg High 10-20 [facility] CBC W/Diff, Automatedon Absolute Lymph 1.45 X10 3/uL Normal 0.83-4.51 [facility] Comment on above: Performed By: #### M 100.678 #### [facility] [address] [place], [address] Absolute Neut 5.8 X10 3/uL Normal 2.0-7.7 [facility] Comment on above: Performed By: #### M 100.678 #### [facility] [address] [place], [address] Basophils/100 WBC (Bld) 0.5 % Normal 0-1 [facility] Comment on above: Performed By: #### M 100.678 #### [facility] [address] [place], [address] Eosinophils/100 WBC (Bld) 0.4 % Normal 0-5 [facility] Comment on above: Performed By: #### M 100.678 #### [facility] [address] [place], [address] Erythrocyte distribution width (RBC) [Ratio] 14.0 % Normal 11.6-14.6 [facility] Comment on above: Performed By: #### M 100.678 #### [facility] [address] [place], [address] Hematocrit (Bld) [Volume fraction] 44.2 % Normal 37-47 [facility] Comment on above: Performed By: #### M 100.678 #### [facility] [address] [place], [address] Hemoglobin (Bld) [Mass/Vol] 14.4 g/dL Normal 12.0-15.0 [facility] Comment on above: Performed By: #### M 100.678 #### [facility] [address] [place], [address] IG% 0.600 Normal 0.0-0.9 [facility] Comment on above: Result Comment: IG% - Immature Granulocytes (promyelocytes, myelocytes and metamyelocytes) > 1% indicates that a LEFT SHIFT is Present. Performed By: #### M 100.678 #### [facility] [address] [place], [address] Lymphocytes/100 WBC (Bld) 17.9 % Low 19-41 [facility] Comment on above: Performed By: #### M 100.678 #### [facility] [address] [place], [address] MCH (RBC) [Entitic mass] 29.3 pg Normal 27.0-32.0 [facility] Comment on above: Performed By: #### M 100.678 #### [facility] [address] [place], [address] MCHC (RBC) [Mass/Vol] 32.6 g/dL Normal 32-36 [facility] Comment on above: Performed By: #### M 100.678 #### [facility] [address] [place], [address] MCV (RBC) [Entitic vol] 90.0 fL Normal 81-99 [facility] Comment on above: Performed By: #### M 100.678 #### [facility] [address] [place], [address] Monocytes/100 WBC (Bld) 9.5 % Normal 0-10 [facility] Comment on above: Performed By: #### M 100.678 #### [facility] [address] [place], [address] Neutrophils/100 WBC (Bld) 71.1 % High 47-70 [facility] Comment on above: Performed By: #### M 100.678 #### [facility] [address] [place], [address] Nucleated RBC (Bld) [#/Vol] 0 10*3/uL Normal 0-5 [facility] Comment on above: Performed By: #### M 100.678 #### [facility] [address] [place], [address] Platelet mean volume (Bld) [Entitic vol] 11.1 fL Normal 6.2-12.0 [facility] Comment on above: Performed By: #### M 100.678 #### [facility] [address] [place], [address] Platelets (Bld) [#/Vol] 196 10*3/uL Normal 150-450 [facility] Comment on above: Performed By: #### M 100.678 #### [facility] [address] [place], [address] RBC (Bld) [#/Vol] 4.91 10*6/uL Normal 4.2-5.4 [facility] Comment on above: Performed By: #### M 100.678 #### [facility] [address] [place], [address] RDW SD 45.5 fl High 35.1-43.9 [facility] Comment on above: Performed By: #### M 100.678 #### [facility] [address] [place], [address] WBC (Bld) [#/Vol] 8.1 10*3/uL Normal 4.4-11.0 [facility] Comment on above: Performed By: #### M 100.678 #### [facility] [address] [place], [address] CBC-Complete Blood Cnt No Di ffon 10-14-2024 Erythrocyte distribution width (RBC) [Ratio] 13.9 % Normal 11.6-14.6 [facility] Comment on above: Performed By: #### L 500.4050, L501.4020, L501.2450, L100.0500 #### [facility] [address] [place], [address] Hematocrit (Bld) [Volume fraction] 45.8 % Normal 37-47 [facility] Comment on above: Performed By: #### L 500.4050, L501.4020, L501.2450, L100.0500 #### [facility] [address] [place], [address] Hemoglobin (Bld) [Mass/Vol] 15.1 g/dL High 12.0-15.0 [facility] Comment on above: Performed By: #### L 500.4050, L501.4020, L501.2450, L100.0500 #### [facility] [address] [place], [address] MCH (RBC) [Entitic mass] 29.1 pg Normal 27.0-32.0 [facility] Comment on above: Performed By: #### L 500.4050, L501.4020, L501.2450, L100.0500 #### [facility] [address] [place], [address] MCHC (RBC) [Mass/Vol] 33.0 g/dL Normal 32-36 [facility] Comment on above: Performed By: #### L 500.4050, L501.4020, L501.2450, L100.0500 #### [facility] [address] [place], [address] MCV (RBC) [Entitic vol] 88.2 fL Normal 81-99 [facility] Comment on above: Performed By: #### L 500.4050, L501.4020, L501.2450, L100.0500 #### [facility] [address] [place], [address] Platelet mean volume (Bld) [Entitic vol] 9.6 fL Normal 6.2-12.0 [facility] Comment on above: Performed By: #### L 500.4050, L501.4020, L501.2450, L100.0500 #### [facility] [address] [place], [address] Platelets (Bld) [#/Vol] 217 10*3/uL Normal 150-450 [facility] Comment on above: Performed By: #### L 500.4050, L501.4020, L501.2450, L100.0500 #### [facility] [address] [place], [address] RBC (Bld) [#/Vol] 5.19 10*6/uL Normal 4.2-5.4 [facility] Comment on above: Performed By: #### L 500.4050, L501.4020, L501.2450, L100.0500 #### [facility] [address] [place], [address] RDW SD 44.6 fl High 35.1-43.9 [facility] Comment on above: Performed By: #### L 500.4050, L501.4020, L501.2450, L100.0500 #### [facility] [address] [place], [address] WBC (Bld) [#/Vol] 19.5 10*3/uL High 4.4-11.0 [facility] Comment on above: Performed By: #### L 500.4050, L501.4020, L501.2450, L100.0500 #### [facility] [address] [place], [address] Carbon dioxide measurementOr dered By: Tae Holland on 10-14-2024 CO2 [Moles/Vol] 23.0 mmol/L 21.0-32.0 [facility] Chest 1 View (Portable)on Chest 1 View (Portable) [facility] Imaging Services [address] [place] [address] Chest 1 View (Portable) MR#: [id number] Acct: [id number] Name: BRENDA LE Rep #: [id number] : 1965 F 58 From: Sid Ayala DO PCP: Shelia Salmon, MACHINE TOOL DESIGNER Status: REG ER Study: Chest 1 View (Portable) Date of Exam: 10/14/24 Exam# [id number] Ordering Dr: Tae Holland DO [id number] INDICATION: Cough EXAMINATION/TECHNIQUE: X-RAY - XR Chest [...] CC: ESEQUIEL Salmon; Dr. Tae Holland DO Recruiter Specialist: Signed Normal [facility] Chloride measurementOrdered By: Tae Holland on 10-14-2024 Chloride [Moles/Vol] 96 mmol/L Low 98-107 [facility] Comprehensive Metabolic Prof ilon 10-14-2024 Albumin [Mass/Vol] 3.5 g/dL Normal 3.2-5.0 [facility] Comment on above: Order Comment: 'TROP ' Serial specimen #1, #2 or #3: 1 Performed By: #### L 500.4050, L501.4020, L501.2450, L100.0500 #### [facility] [address] [place], [address] Albumin/Globulin [Mass ratio] 0.9 {ratio} Normal 0.9-2.4 [facility] Comment on above: Order Comment: 'TROP ' Serial specimen #1, #2 or #3: 1 Performed By: #### L 500.4050, L501.4020, L501.2450, L100.0500 #### [facility] [address] [place], [address] ALK P 110 U/L Normal 45-117 [facility] Comment on above: Order Comment: 'TROP ' Serial specimen #1, #2 or #3: 1 Performed By: #### L 500.4050, L501.4020, L501.2450, L100.0500 #### [facility] [address] [place], [address] ALT [Catalytic activity/Vol] 49 U/L Normal 13-56 [facility] Comment on above: Order Comment: 'TROP ' Serial specimen #1, #2 or #3: 1 Performed By: #### L 500.4050, L501.4020, L501.2450, L100.0500 #### [facility] [address] [place], [address] AST [Catalytic activity/Vol] 29 U/L Normal 15-37 [facility] Comment on above: Order Comment: 'TROP ' Serial specimen #1, #2 or #3: 1 Performed By: #### L 500.4050, L501.4020, L501.2450, L100.0500 #### [facility] [address] [place], [address] Bilirubin [Mass/Vol] 0.50 mg/dL Normal 0.20-1.00 [facility] Comment on above: Order Comment: 'TROP ' Serial specimen #1, #2 or #3: 1 Result Comment: For patients on eltrombopag therapy, use of Dimension Ovalo TBIL is not recommended. Performed By: #### L 500.4050, L501.4020, L501.2450, L100.0500 #### [facility] [address] [place], [address] BUN/CRE 31.2 RATIO High 10-20 [facility] Comment on above: Order Comment: 'TROP ' Serial specimen #1, #2 or #3: 1 Performed By: #### L 500.4050, L501.4020, L501.2450, L100.0500 #### [facility] [address] [place], [address] CA,Total 8.9 mg/dL Normal 8.5-10.1 [facility] Comment on above: Order Comment: 'TROP ' Serial specimen #1, #2 or #3: 1 Performed By: #### L 500.4050, L501.4020, L501.2450, L100.0500 #### [facility] [address] [place], [address] Chloride [Moles/Vol] 96 mmol/L Low 98-107 [facility] Comment on above: Order Comment: 'TROP ' Serial specimen #1, #2 or #3: 1 Performed By: #### L 500.4050, L501.4020, L501.2450, L100.0500 #### [facility] [address] [place], [address] CO2 [Moles/Vol] 23.0 mmol/L Normal 21.0-32.0 [facility] Comment on above: Order Comment: 'TROP ' Serial specimen #1, #2 or #3: 1 Performed By: #### L 500.4050, L501.4020, L501.2450, L100.0500 #### [facility] [address] [place], [address] Creatinine [Mass/Vol] 0.58 mg/dL Normal 0.55-1.02 [facility] Comment on above: Order Comment: 'TROP ' Serial specimen #1, #2 or #3: 1 Result Comment: The validity of the calculated GFR GFRAA in patients over 70 years has not been determined. Clinical correlation is essential. Performed By: #### L 500.4050, L501.4020, L501.2450, L100.0500 #### [facility] [address] [place], [address] EST GFR - AA 137 mL/min Normal >60 [facility] Comment on above: Order Comment: 'TROP ' Serial specimen #1, #2 or #3: 1 Result Comment: Afri can Citizen [place] GFR Calc Performed By: #### L 500.4050, L501.4020, L501.2450, L100.0500 #### [facility] [address] [place], [address] GAP 10 Normal 5-15 [facility] Comment on above: Order Comment: 'TROP ' Serial specimen #1, #2 or #3: 1 Performed By: #### L 500.4050, L501.4020, L501.2450, L100.0500 #### [facility] [address] [place], [address] GFR/1.73 sq M.predicted among non-blacks MDRD (S/P/Bld) [Vol rate/Area] 113 mL/min/{1.73_m2} Normal >60 [facility] Comment on above: Order Comment: 'TROP ' Serial specimen #1, #2 or #3: 1 Result Comment: Non- GFR Calc Performed By: #### L 500.4050, L501.4020, L501.2450, L100.0500 #### [facility] [address] [place], [address] Globulin (S) [Mass/Vol] 4.0 g/dL Normal 2.2-4.2 [facility] Comment on above: Order Comment: 'TROP ' Serial specimen #1, #2 or #3: 1 Performed By: #### L 500.4050, L501.4020, L501.2450, L100.0500 #### [facility] [address] [place], [address] Glucose [Mass/Vol] 171 mg/dL High 74-106 [facility] Comment on above: Order Comment: 'TROP ' Serial specimen #1, #2 or #3: 1 Result Comment: Fast ing Glucose result greater than or equal to 126 mg/dL suggests DIABETES MELLITUS per A.D.A. criteria. Performed By: #### L 500.4050, L501.4020, L501.2450, L100.0500 #### [facility] [address] [place], [address] Potassium [Moles/Vol] 4.0 mmol/L Normal 3.5-5.1 [facility] Comment on above: Order Comment: 'TROP ' Serial specimen #1, #2 or #3: 1 Performed By: #### L 500.4050, L501.4020, L501.2450, L100.0500 #### [facility] [address] [place], [address] Sodium [Moles/Vol] 129 mmol/L Low 136-145 [facility] Comment on above: Order Comment: 'TROP ' Serial specimen #1, #2 or #3: 1 Performed By: #### L 500.4050, L501.4020, L501.2450, L100.0500 #### [facility] [address] [place], [address] T PROT 7.5 g/dL Normal 6.4-8.2 [facility] Comment on above: Order Comment: 'TROP ' Serial specimen #1, #2 or #3: 1 Performed By: #### L 500.4050, L501.4020, L501.2450, L100.0500 #### [facility] [address] [place], [address] Urea nitrogen [Mass/Vol] 18 mg/dL Normal 7-18 [facility] Comment on above: Order Comment: 'TROP ' Serial specimen #1, #2 or #3: 1 Performed By: #### L 500.4050, L501.4020, L501.2450, L100.0500 #### [facility] [address] [place], [address] Emergency Department Summary on 10-14-2024 Emergency Department Summary [facility] Medical Records Department [address] [place] [address] Emergency Department Summary 10/14/24 MR#: [id number] Acct: [id number] Name: BRENDA LE Rep #: [id number] : 1965 58 From: Tae Holland DO PCP: Shelia Salmon, MACHINE TOOL DESIGNER Status:REG ER Location: ED HPI History of Present Illness Chief Complaint: Nausea/Vomiting/Diarrhea [facility] Medical History Anxiety and depression COPD [...] mandibular surgery Social History housing: other details: senior living. Smoking Status: Former smoker how long ago [...] OF PRESENT ILLNESS: 58-year-old female presents from half-way with concern for nausea vomiting diarrhea. This is noted to begin at 10 AM. Noted sick contacts other members of the half-way who have norovirus. The patient states she had copious nausea and vomiting at 10 AM. Also notes diarrhea. Notes some blood in her stool. Denies fever. Denies recent travel. No sick contacts at her half-way. Denies chest pain. She does note chronic shortness of breath as well. She does note a cough as well. Denies urinary complaints. Last bowel movement was today. REVI (more content not included)... Normal [facility] Eosinophil percentageOrdered By: Lorraine Springer on 10-14-2024 Eosinophils/100 WBC (Bld) 0.4 % 0-5 [facility] Erythrocyte distribution wid th ratioOrdered By: Tae Holland on 10-14-2024 Erythrocyte distribution width (RBC) [Ratio] 13.9 % 11.6-14.6 [facility] Erythrocyte distribution wid th ratioOrdered By: Lorraine Springer on 10-14-2024 Erythrocyte distribution width (RBC) [Ratio] 14.0 % 11.6-14.6 [facility] Erythrocyte distribution wid th standard deviationOrdered By: Tae Holland on 10-14-2024 Erythrocyte distribution width (RBC) [Entitic vol] 44.6 fL High 35.1-43.9 [facility] Erythrocyte distribution wid th standard deviationOrdered By: Lorraine Springer on 10-14-2024 Erythrocyte distribution width (RBC) [Entitic vol] 45.5 fL High 35.1-43.9 [facility] Estimated glomerular filtrat ion rate (GFR) AmericanOrdered By: Tae Holland on 10-14-2024 Estimated GFR (MDRD) Amer 137 mL/min >60 [facility] Comment on above: GFR Calc Glomerular filtration rate ( GFR) estimationOrdered By: Tae Holland on 10-14-2024 Estimated GFR (MDRD) Non-Af Amer 113 mL/min >60 [facility] Comment on above: Non- GFR Calc Glucose measurementOrdered B y: Tae Holland on 10-14-2024 Glucose [Mass/Vol] 171 mg/dL High 74-106 [facility] Comment on above: Fasting Glucose resu lt greater than or equal to 126 mg/dL suggests DIABETES MELLITUS per A.D.A. criteria. Hematocrit Auto (Bld) [Volum e fraction]Ordered By: Tae Holland on 10-14-2024 Hematocrit (Bld) [Volume fraction] 45.8 % 37-47 [facility] Hematocrit Auto (Bld) [Volum e fraction]Ordered By: Lorraine Springer on 10-14-2024 Hematocrit (Bld) [Volume fraction] 44.2 % 37-47 [facility] Hemoglobin measurementOrdere d By: Tae Holland on 10-14-2024 Hemoglobin (Bld) [Mass/Vol] 15.1 g/dL High 12.0-15.0 [facility] Hemoglobin measurementOrdere d By: Lorraine Springer on 10-14-2024 Hemoglobin (Bld) [Mass/Vol] 14.4 g/dL 12.0-15.0 [facility] Immature granulocytes/100 WB C Auto (Bld)Ordered By: Lorraine Springer on 10-14-2024 Immature granulocytes/100 WBC (Bld) 0.600 % 0.0-0.9 [facility] Comment on above: IG% - Immature Granu locytes (promyelocytes, myelocytes and metamyelocytes) > 1% indicates that a LEFT SHIFT is Present. Influenza virus A and B and SARS-CoV-2 (COVID-19) and Respiratory syncytial virus RNAOrdered By: Tae Holland on 10-14-2024 SARS-CoV-2 (COVID-19) RNA LUIS M+probe Ql (Unsp spec) [facility] L501.4020on 10-14-2024 TROPONIN-I HS < 3 Low 3.0-54.0 [facility] Comment on above: Order Comment: 'TROP ' Serial specimen #1, #2 or #3: 1 Result Comment: Ck wang Note: New Test Units and Gender Specific Reference Ranges. For more information see Policy Stat Procedure Ovalo High Sensitivity Troponin ([facility]NI[facility]) and attachments. Performed By: #### L 500.4050, L501.4020, L501.2450, L100.0500 #### [facility] [address] [place], [place], [id number] Laboratory - Chemistry and C hemistry - challengeOrdered By: Tae Holland on 10-14-2024 AST [Catalytic activity/Vol] 29 U/L 15-37 [facility] Lipaseon 10-14-2024 Lipase [Catalytic activity/Vol] 176 U/L High 13-75 [facility] Comment on above: Order Comment: 'TROP ' Serial specimen #1, #2 or #3: 1 Result Comment: Pledonald wang note: LIPASE revised reference range effective 23. New Lipase methodology. Expected to produce lower values than the previous assay method. NEW Reference Range: 13 - 75 U/L Performed By: #### L 500.4050, L501.4020, L501.2450, L100.0500 #### [facility] [address] [place], [place], [id number] Lipase measurementOrdered By : Tae Holland on 10-14-2024 Lipase [Catalytic activity/Vol] 176 U/L High 13-75 [facility] Comment on above: Please note:LIPASE r evised reference range effective 23. New Lipase methodology. Expected to produce lower values than the previous assay method. NEW Reference Range: 13 - 75 U/L Lymphocytes Auto (Unsp spec) [#/Vol]Ordered By: Lorraine Springer on 10-14-2024 Lymphocytes (Bld) [#/Vol] 1.45 10*3/uL 0.83-4.51 [facility] Lymphocytes/100 WBC Auto (Un sp spec)Ordered By: Lorraine Springer on 10-14-2024 Lymphocytes/100 WBC (Bld) 17.9 % Low 19-41 [facility] M100.678on 10-14-2024 M100.678 Pending SARS-CoV-2 (COVID 19) Negative INFLUENZA A Negative INFLUENZA B Negative RSV PCR Negative Normal [facility] Comment on above: Performed By: #### M 100.678 #### [facility] [address] [place], [address] MCV (mean corpuscular volume ) determinationOrdered By: Tae Holland on 10-14-2024 MCV (RBC) [Entitic vol] 88.2 fL 81-99 [facility] MCV (mean corpuscular volume ) determinationOrdered By: Lorraine Springer on 10-14-2024 MCV (RBC) [Entitic vol] 90.0 fL 81-99 [facility] Mean corpuscular hemoglobin (MCH) determinationOrdered By: Tae Holland on 10-14-2024 MCH (RBC) [Entitic mass] 29.1 pg 27.0-32.0 [facility] Mean corpuscular hemoglobin (MCH) determinationOrdered By: Lorraine Springer on 10-14-2024 MCH (RBC) [Entitic mass] 29.3 pg 27.0-32.0 [facility] Mean corpuscular hemoglobin concentration (MCHC) determinationOrdered By: Tae Holland on 10-14-2024 MCHC (RBC) [Mass/Vol] 33.0 g/dL 32-36 [facility] Mean corpuscular hemoglobin concentration (MCHC) determinationOrdered By: Lorraine Springer on 10-14-2024 MCHC (RBC) [Mass/Vol] 32.6 g/dL 32-36 [facility] Mean platelet volume determi nationOrdered By: Tae Holland on 10-14-2024 Platelet mean volume (Bld) [Entitic vol] 9.6 fL 6.2-12.0 [facility] Mean platelet volume determi nationOrdered By: Lorraine Springer on 10-14-2024 Platelet mean volume (Bld) [Entitic vol] 11.1 fL 6.2-12.0 [facility] Monocyte percentageOrdered B y: Lorraine Springer on 10-14-2024 Monocytes/100 WBC (Bld) 9.5 % 0-10 [facility] Neutrophil percentageOrdered By: Lorraine Springer on 10-14-2024 Neutrophils/100 WBC (Bld) 71.1 % High 47-70 [facility] Nucleated red blood cell per centageOrdered By: Lorraine Springer on 10-14-2024 Nucleated RBC/100 WBC (Bld) [Ratio] 0 % 0-5 [facility] Platelet countOrdered By: Vivi Holland on 10-14-2024 Platelets (Bld) [#/Vol] 217 10*3/uL 150-450 [facility] Platelet countOrdered By: Anastacia Springer on 10-14-2024 Platelets (Bld) [#/Vol] 196 10*3/uL 150-450 [facility] Potassium measurementOrdered By: Tae Holland on 10-14-2024 Potassium [Moles/Vol] 4.0 mmol/L 3.5-5.1 [facility] RBC Auto (Bld) [#/Vol]Ordere d By: Tae Holland on 10-14-2024 RBC (Bld) [#/Vol] 5.19 10*6/uL 4.2-5.4 [facility] RBC Auto (Bld) [#/Vol]Ordere d By: Lorraine Springer on 10-14-2024 RBC (Bld) [#/Vol] 4.91 10*6/uL 4.2-5.4 [facility] Serum anion gap measurementO rdered By: Tae Holland on 10-14-2024 Anion gap [Moles/Vol] 10 mmol/L 5-15 [facility] Serum globulin measurementOr dered By: Tae Holland on 10-14-2024 Globulin (S) [Mass/Vol] 4.0 g/dL 2.2-4.2 [facility] Serum or plasma alanine angulo otransferase (ALT) measurementOrdered By: Tae Holland on 10-14-2024 ALT [Catalytic activity/Vol] 49 U/L 13-56 [facility] Serum or plasma albumin lawrence urement (mass/volume)Ordered By: Tae Holland on 10-14-2024 Albumin [Mass/Vol] 3.5 g/dL 3.2-5.0 [facility] Serum or plasma alkaline jakob sphatase measurementOrdered By: Tae Holland on 10-14-2024 ALP [Catalytic activity/Vol] 110 U/L 45-117 [facility] Serum or plasma calcium lawrence urement (mass/volume)Ordered By: Tae Holland on 10-14-2024 Calcium [Mass/Vol] 8.9 mg/dL 8.5-10.1 [facility] Serum or plasma creatinine m easurement (mass/volume)Ordered By: Tae Holland on 10-14-2024 Creatinine [Mass/Vol] 0.58 mg/dL 0.55-1.02 [facility] Comment on above: The validity of the calculated GFR & GFRAA in patients over 70 years has not been determined. Clinical correlation is essential. Serum or plasma urea nitroge n measurement (mass/volume)Ordered By: Tae Holland on 10-14-2024 Urea nitrogen [Mass/Vol] 18 mg/dL 7-18 [facility] Sodium levelOrdered By: Sandra Holland on 10-14-2024 Sodium [Moles/Vol] 129 mmol/L Low 136-145 [facility] Total proteinOrdered By: Gabe Holland on 10-14-2024 Protein [Mass/Vol] 7.5 g/dL 6.4-8.2 [facility] Troponin IOrdered By: Tae Holland on 10-14-2024 Troponin I High Sensitivity < 3 pg/mL Low 3.0-54.0 [facility] Comment on above: Please Note: New Janeth t Units and Gender Specific Reference Ranges. For more information see Policy Stat Procedure Ovalo High Sensitivity Troponin (TNIH) and attachments. White blood cell (WBC) count Ordered By: Tae Holland on 10-14-2024 WBC (Bld) [#/Vol] 19.5 10*3/uL High 4.4-11.0 [facility] White blood cell (WBC) count Ordered By: Lorraine Springer on 10-14-2024 WBC (Bld) [#/Vol] 8.1 10*3/uL 4.4-11.0 [facility] CNOVon 09-28-2024 CNOV Normal [facility] CNOVon 09-20-2024 CNOV Normal [facility] ECG COMPLETEon 09-20-2024 ECG COMPLETE Normal [facility] Absolute neutrophil countOrd ered By: Lorraine Springer on 09-16-2024 Neutrophils (Bld) [#/Vol] 4.6 10*3/uL 2.0-7.7 [facility] Basophil percentageOrdered B y: Lorraine Springer on 09-16-2024 Basophils/100 WBC (Bld) 0.5 % 0-1 [facility] CBC W/Diff, Automatedon -0 SMEAR COMMENT SCANNED Normal [facility] Comment on above: Performed By: #### M 100.678 #### [facility] [address] [place], [place], [id number] Eosinophil percentageOrdered By: Lorraine Springer on 09-16-2024 Eosinophils/100 WBC (Bld) 0.4 % 0-5 [facility] Erythrocyte distribution wid th ratioOrdered By: Lorraine Springer on 09-16-2024 Erythrocyte distribution width (RBC) [Ratio] 14.0 % 11.6-14.6 [facility] Erythrocyte distribution wid th standard deviationOrdered By: Lorraine Springer on 09-16-2024 Erythrocyte distribution width (RBC) [Entitic vol] 44.5 fL High 35.1-43.9 [facility] Hematocrit Auto (Bld) [Volum e fraction]Ordered By: Lorraine Springer on 09-16-2024 Hematocrit (Bld) [Volume fraction] 41.7 % 37-47 [facility] Hemoglobin measurementOrdere d By: Lorraine Springer on 09-16-2024 Hemoglobin (Bld) [Mass/Vol] 13.7 g/dL 12.0-15.0 [facility] Immature granulocytes/100 WB C Auto (Bld)Ordered By: Lorraine Springer on 09-16-2024 Immature granulocytes/100 WBC (Bld) 0.400 % 0.0-0.9 [facility] Comment on above: IG% - Immature Granu locytes (promyelocytes, myelocytes and metamyelocytes) > 1% indicates that a LEFT SHIFT is Present. Lymphocytes Auto (Unsp spec) [#/Vol]Ordered By: Lorraine Springer on 09-16-2024 Lymphocytes (Bld) [#/Vol] 2.60 10*3/uL 0.83-4.51 [facility] Lymphocytes/100 WBC Auto (Un sp spec)Ordered By: Lorraine Springer on 09-16-2024 Lymphocytes/100 WBC (Bld) 33.5 % 19-41 [facility] MCV (mean corpuscular volume ) determinationOrdered By: Lorraine Springer on 09-16-2024 MCV (RBC) [Entitic vol] 88.2 fL 81-99 [facility] Manual differential comment Diego (Bld) [Interp]Ordered By: Lorraine Springer on 09-16-2024 Differential Comment SCANNED [facility] Mean corpuscular hemoglobin (MCH) determinationOrdered By: Lorraine Springer on 09-16-2024 MCH (RBC) [Entitic mass] 29.0 pg 27.0-32.0 [facility] Mean corpuscular hemoglobin concentration (MCHC) determinationOrdered By: Lorraine Springer on 09-16-2024 MCHC (RBC) [Mass/Vol] 32.9 g/dL 32-36 [facility] Mean platelet volume determi nationOrdered By: Lorraine Springer on 09-16-2024 Platelet mean volume (Bld) [Entitic vol] 11.3 fL 6.2-12.0 [facility] Monocyte percentageOrdered B y: Lorraine Springer on 09-16-2024 Monocytes/100 WBC (Bld) 5.7 % 0-10 [facility] Neutrophil percentageOrdered By: Lorraine Springer on 09-16-2024 Neutrophils/100 WBC (Bld) 59.5 % 47-70 [facility] Nucleated red blood cell per centageOrdered By: Lorraine Springer on 09-16-2024 Nucleated RBC/100 WBC (Bld) [Ratio] 0 % 0-5 [facility] Platelet countOrdered By: Anastacia Springer on 09-16-2024 Platelets (Bld) [#/Vol] 198 10*3/uL 150-450 [facility] RBC Auto (Bld) [#/Vol]Ordere d By: Lorraine Springer on 09-16-2024 RBC (Bld) [#/Vol] 4.73 10*6/uL 4.2-5.4 [facility] White blood cell (WBC) count Ordered By: Moondonald Springer on 09-16-2024 WBC (Bld) [#/Vol] 7.8 10*3/uL 4.4-11.0 [facility] CNOVon 09-08-2024 CNOV Normal [facility] Absolute neutrophil countOrd ered By: Lorraine Springer on 08-25-2024 Neutrophils (Bld) [#/Vol] 6.9 10*3/uL 2.0-7.7 [facility] Basophil percentageOrdered B y: Lorraine Springer on 08-25-2024 Basophils/100 WBC (Bld) 0.5 % 0-1 [facility] CBC W/Diff, Automatedon 08-13 Absolute Lymph 2.76 X10 3/uL Normal 0.83-4.51 [facility] Comment on above: Performed By: #### L 500.4050, L501.4020, L501.2450, L100.0500 #### [facility] [address] [place], [address] Absolute Neut 6.9 X10 3/uL Normal 2.0-7.7 [facility] Comment on above: Performed By: #### L 500.4050, L501.4020, L501.2450, L100.0500 #### [facility] [address] [place], [address] Basophils/100 WBC (Bld) 0.5 % Normal 0-1 [facility] Comment on above: Performed By: #### L 500.4050, L501.4020, L501.2450, L100.0500 #### [facility] [address] [place], [address] Eosinophils/100 WBC (Bld) 0.3 % Normal 0-5 [facility] Comment on above: Performed By: #### L 500.4050, L501.4020, L501.2450, L100.0500 #### [facility] [address] [place], [address] Erythrocyte distribution width (RBC) [Ratio] 13.7 % Normal 11.6-14.6 [facility] Comment on above: Performed By: #### L 500.4050, L501.4020, L501.2450, L100.0500 #### [facility] [address] [place], [address] Hematocrit (Bld) [Volume fraction] 44.1 % Normal 37-47 [facility] Comment on above: Performed By: #### L 500.4050, L501.4020, L501.2450, L100.0500 #### [facility] [address] [place], [address] Hemoglobin (Bld) [Mass/Vol] 14.4 g/dL Normal 12.0-15.0 [facility] Comment on above: Performed By: #### L 500.4050, L501.4020, L501.2450, L100.0500 #### [facility] [address] [place], [address] IG% 0.900 Normal 0.0-0.9 [facility] Comment on above: Result Comment: IG% - Immature Granulocytes (promyelocytes, myelocytes and metamyelocytes) > 1% indicates that a LEFT SHIFT is Present. Performed By: #### L 500.4050, L501.4020, L501.2450, L100.0500 #### [facility] [address] [place], [address] Lymphocytes/100 WBC (Bld) 26.1 % Normal 19-41 [facility] Comment on above: Performed By: #### L 500.4050, L501.4020, L501.2450, L100.0500 #### [facility] [address] [place], [address] MCH (RBC) [Entitic mass] 28.9 pg Normal 27.0-32.0 [facility] Comment on above: Performed By: #### L 500.4050, L501.4020, L501.2450, L100.0500 #### [facility] [address] [place], [address] MCHC (RBC) [Mass/Vol] 32.7 g/dL Normal 32-36 [facility] Comment on above: Performed By: #### L 500.4050, L501.4020, L501.2450, L100.0500 #### [facility] [address] [place], [address] MCV (RBC) [Entitic vol] 88.4 fL Normal 81-99 [facility] Comment on above: Performed By: #### L 500.4050, L501.4020, L501.2450, L100.0500 #### [facility] [address] [place], [address] Monocytes/100 WBC (Bld) 7.1 % Normal 0-10 [facility] Comment on above: Performed By: #### L 500.4050, L501.4020, L501.2450, L100.0500 #### [facility] [address] [place], [address] Neutrophils/100 WBC (Bld) 65.1 % Normal 47-70 [facility] Comment on above: Performed By: #### L 500.4050, L501.4020, L501.2450, L100.0500 #### [facility] [address] [place], [address] Nucleated RBC (Bld) [#/Vol] 0 10*3/uL Normal 0-5 [facility] Comment on above: Performed By: #### L 500.4050, L501.4020, L501.2450, L100.0500 #### [facility] [address] [place], [address] Platelet mean volume (Bld) [Entitic vol] 11.1 fL Normal 6.2-12.0 [facility] Comment on above: Performed By: #### L 500.4050, L501.4020, L501.2450, L100.0500 #### [facility] [address] [place], [address] Platelets (Bld) [#/Vol] 252 10*3/uL Normal 150-450 [facility] Comment on above: Performed By: #### L 500.4050, L501.4020, L501.2450, L100.0500 #### [facility] [address] [place], [address] RBC (Bld) [#/Vol] 4.99 10*6/uL Normal 4.2-5.4 [facility] Comment on above: Performed By: #### L 500.4050, [id number], L501.2450, L100.0500 #### [facility] [address] [place], [address] RDW SD 44.1 fl High 35.1-43.9 [facility] Comment on above: Performed By: #### L 500.4050, [id number], L501.2450, L100.0500 #### [facility] [address] [place], [address] WBC (Bld) [#/Vol] 10.6 10*3/uL Normal 4.4-11.0 [facility] Comment on above: Performed By: #### L 500.4050, [id number], L501.2450, L100.0500 #### [facility] [address] [place], [address] Eosinophil percentageOrdered By: Lorraine Springer on 08-25-2024 Eosinophils/100 WBC (Bld) 0.3 % 0-5 [facility] Erythrocyte distribution wid th ratioOrdered By: Lorraine Springer on 08-25-2024 Erythrocyte distribution width (RBC) [Ratio] 13.7 % 11.6-14.6 [facility] Erythrocyte distribution wid th standard deviationOrdered By: Lorraine Springer on 08-25-2024 Erythrocyte distribution width (RBC) [Entitic vol] 44.1 fL High 35.1-43.9 [facility] Hematocrit Auto (Bld) [Volum e fraction]Ordered By: Lorraine Springer on 08-25-2024 Hematocrit (Bld) [Volume fraction] 44.1 % 37-47 [facility] Hemoglobin measurementOrdere d By: Lorraine Springer on 08-25-2024 Hemoglobin (Bld) [Mass/Vol] 14.4 g/dL 12.0-15.0 [facility] Immature granulocytes/100 WB C Auto (Bld)Ordered By: Lorraine Springer on 08-25-2024 Immature granulocytes/100 WBC (Bld) 0.900 % 0.0-0.9 [facility] Comment on above: IG% - Immature Granu locytes (promyelocytes, myelocytes and metamyelocytes) > 1% indicates that a LEFT SHIFT is Present. Lymphocytes Auto (Unsp spec) [#/Vol]Ordered By: Lorraine Springer on 08-25-2024 Lymphocytes (Bld) [#/Vol] 2.76 10*3/uL 0.83-4.51 [facility] Lymphocytes/100 WBC Auto (Un sp spec)Ordered By: Lorraine Springer on 08-25-2024 Lymphocytes/100 WBC (Bld) 26.1 % 19-41 [facility] MCV (mean corpuscular volume ) determinationOrdered By: Lorraine Springer on 08-25-2024 MCV (RBC) [Entitic vol] 88.4 fL 81-99 [facility] Mean corpuscular hemoglobin (MCH) determinationOrdered By: Lorraine Springer on 08-25-2024 MCH (RBC) [Entitic mass] 28.9 pg 27.0-32.0 [facility] Mean corpuscular hemoglobin concentration (MCHC) determinationOrdered By: Lorraine Springer on 08-25-2024 MCHC (RBC) [Mass/Vol] 32.7 g/dL 32-36 [facility] Mean platelet volume determi nationOrdered By: Lorraine Springer on 08-25-2024 Platelet mean volume (Bld) [Entitic vol] 11.1 fL 6.2-12.0 [facility] Monocyte percentageOrdered B y: Lorraine Springer on 08-25-2024 Monocytes/100 WBC (Bld) 7.1 % 0-10 [facility] Neutrophil percentageOrdered By: Lorraine Springer on 08-25-2024 Neutrophils/100 WBC (Bld) 65.1 % 47-70 [facility] Nucleated red blood cell per centageOrdered By: Lorraine Springer on 08-25-2024 Nucleated RBC/100 WBC (Bld) [Ratio] 0 % 0-5 [facility] Platelet countOrdered By: Anastacia Springer on 08-25-2024 Platelets (Bld) [#/Vol] 252 10*3/uL 150-450 [facility] RBC Auto (Bld) [#/Vol]Ordere d By: Lorraine Springer on 08-25-2024 RBC (Bld) [#/Vol] 4.99 10*6/uL 4.2-5.4 [facility] White blood cell (WBC) count Ordered By: Lorraine Springer on 08-25-2024 WBC (Bld) [#/Vol] 10.6 10*3/uL 4.4-11.0 [facility] CNOVon 08-24-2024 CNOV Normal [facility] CNPNon 08-18-2024 CNPN Normal [facility] CNPNon 08-16-2024 CNPN Normal [facility] CNPNon 07-31-2024 CNPN Normal [facility] CNOVon 07-23-2024 CNOV Normal [facility] CNPNon 07-22-2024 CNPN Normal [facility] CNPNon 07-14-2024 CNPN Normal [facility] CNOVon 07-06-2024 CNOV Normal [facility] CBC W Auto Differential pane l (Bld)on 03-02-2024 Basophils (Bld) [#/Vol] 0.05 10*3/uL [facility] Basophils/100 WBC (Bld) 0.6 % [facility] Differential cell count method Nom (Bld) Auto [facility] Eosinophils (Bld) [#/Vol] 0.03 10*3/uL [facility] Eosinophils/100 WBC (Bld) 0.3 % [facility] Erythrocyte distribution width (RBC) [Ratio] 13.9 % 11.5 - 15.0 % [facility] Hematocrit (Bld) [Volume fraction] 43.6 % 36.0 - 46.0 % [facility] Hemoglobin (Bld) [Mass/Vol] 14.1 g/dL 11.5 - 15.5 g/dL [facility] Immature granulocytes (Bld) [#/Vol] 0.03 10*3/uL [facility] Immature granulocytes/100 WBC (Bld) 0.3 % [facility] Interpretation and review of laboratory results Abnormal [facility] Lymphocytes (Bld) [#/Vol] 2.53 10*3/uL [facility] Lymphocytes/100 WBC (Bld) 28.7 % [facility] MCH (RBC) [Entitic mass] 28.7 pg 26. 0 - 34.0 pg [facility] MCHC (RBC) [Mass/Vol] 32.3 g/dL 30.5 - 36.0 g/dL [facility] MCV (RBC) [Entitic vol] 88.6 fL 80.0 - 100.0 fL [facility] Monocytes (Bld) [#/Vol] 0.61 10*3/uL [facility] Monocytes/100 WBC (Bld) 6.9 % [facility] Neutrophils (Bld) [#/Vol] 5.58 10*3/uL [facility] Neutrophils/100 WBC (Bld) 63.2 % [facility] Nucleated RBC (Bld) [#/Vol] [facility] Nucleated RBC/100 WBC (Bld) [Ratio] 0.0 % /100 WBC [facility] Platelet mean volume (Bld) [Entitic vol] 12.5 fL 9.0 - 12.7 fL [facility] Platelets (Bld) [#/Vol] 123 10*3/uL Low [facility] RBC (Bld) [#/Vol] 4.92 10*6/uL 3.90 - 5.2 0 m/uL [facility] WBC (Bld) [#/Vol] 8.83 10*3/uL [facility] Comprehensive metabolic 2000 panelon 03-02-2024 Albumin [Mass/Vol] 4.2 g/dL 3.9 - 4.9 g/dL [facility] ALP [Catalytic activity/Vol] 139 U/L High 34 - 123 U/L [facility] ALT [Catalytic activity/Vol] 52 U/L High 7 - 38 U/L [facility] Anion gap [Moles/Vol] 13 mmol/L 9 - 18 mmol/L [facility] AST [Catalytic activity/Vol] 38 U/L High 13 - 35 U/L [facility] Bilirubin [Mass/Vol] 0.4 mg/dL 0.2 - 1 .3 mg/dL [facility] Calcium [Mass/Vol] 10.0 mg/dL 8.5 - 10. 2 mg/dL [facility] Chloride [Moles/Vol] 98 mmol/L 97 - 10 5 mmol/L [facility] CO2 [Moles/Vol] 26 mmol/L 22 - 30 mmol/L [facility] Creatinine [Mass/Vol] 0.51 mg/dL Low 0.58 - 0.96 mg/dL [facility] GFR/1.73 sq M.predicted among non-blacks MDRD (S/P/Bld) [Vol rate/Area] 107 mL/min/{1.73_m2} - PINF [facility] Comment on above: Estimated Glomerular Filtration [...] 131 mg/dL High 74 - 99 mg/dL [facility] Comment on above: The [place] Diabete [place] Association (ADA) provides guidance for [...] Medical Care in Diabetes 2016, [place] Diabetes Association. Diabetes Care. 2016.39(Suppl 1). Interpretation and review of laboratory results Abnormal [facility] Potassium [Moles/Vol] 4.6 mmol/L 3.7 - 5.1 mmol/L [facility] Protein [Mass/Vol] 7.7 g/dL 6.3 - 8.0 g/dL [facility] Sodium [Moles/Vol] 137 mmol/L 136 - 144 mmol/L [facility] Urea nitrogen [Mass/Vol] 19 mg/dL 7 - 21 mg/dL [facility] FOLATE, SERUMon 03-02-2024 Folate [Mass/Vol] 15.4 ng/mL 4.7 - PINF ng/mL [facility] Folate [Mass/Vol]on 03-02-20 Interpretation and review of laboratory results Normal [facility] HbA1c (Bld)on 03-02-2024 Average glucose Estimated from glycated hemoglobin (Bld) [Mass/Vol] 166 mg/dL [facility] Comment on above: eAG: (Estimated aver age glucose) is a calculated value from HgbA1c and is client care representative of the average blood glucose level in the last 2-3 month period. HbA1c (Bld) [Mass fraction] 7.4 % High 4.3 - 5.6 % [facility] Comment on above: [place] Diabetes As sociation guidelines indicate that patients with HgbA1c in the range 5.7-6.4% are at increased risk for development of diabetes, and intervention by lifestyle modification may be beneficial. HgbA1c greater or equal to 6.5% is considered diagnostic of diabetes. Interpretation and review of laboratory results Abnormal [facility] MAGNESIUMon 03-02-2024 Magnesium [Mass/Vol] 2.3 mg/dL 1.7 - 2 .3 mg/dL [facility] Magnesium [Mass/Vol]on 03-02 Interpretation and review of laboratory results Normal [facility] No Panel Informationon 03-02 Interpretation and review of laboratory results Normal [facility] T4 FREE/FREE THYROXINEon Free T4 [Mass/Vol] 0.9 ng/dL 0.9 - 1.7 ng/dL [facility] THYROID STIMULATING HORMONEo n 03-02-2024 TSH Qn 1.620 m[IU]/L [facility] Urinalysis complete panel (U )on 03-02-2024 Bacteria LM.HPF (Urine sed) [#/Area] Negative Negative /HPF [facility] Bilirubin Ql (U) Negative Negative [facility] Clarity (Unsp spec) Clear Clear [facility] Color (U) Yellow Yellow [facility] Epithelial cells LM.HPF (Urine sed) [#/Area] None Seen /HPF [facility] Glucose Test strip (U) [Mass/Vol] 3+ Abnormal Negative [facility] Hemoglobin Ql (U) Negative Negative [facility] Hyaline casts (Urine sed) [#/Area] 0 /[LPF] 0 /LPF [facility] Interpretation and review of laboratory results Abnormal [facility] Ketones Ql (U) Negative Negative [facility] Leukocyte esterase Test strip Ql (U) Negative Negative [facility] Nitrite Ql (U) Negative Negative [facility] pH (U) 6.5 [pH] NINF - 8.5 [facility] Protein (U) [Mass/Vol] Negative Negative [facility] RBC LM.HPF (Urine sed) [#/Area] 0-2 /HPF 0-2 /HPF [facility] Specific gravity (U) [Rel density] 1.009 1.005 - 1.030 [facility] Urobilinogen Ql (U) 0.2 EU/dL 0.2-1.0 EU/dL [facility] WBC LM.HPF (Urine sed) [#/Area] 0-5 /HPF 0-5 /HPF [facility] This test was tangela woods and its performance characteristics determined by [facility]'s Koby JMeghan [facility] Pathology [facility] Laboratory [facility] [place] ([facility]). It has not been cleared or approved by the FDA. [facility] is regulated under CLIA as qualified to perform high-complexity testing. This test is used for clinical purposes. It should not be regarded as investigational or for research. [facility] Absolute lymphocyte countOrd ered By: Lorraine Springer on 02-03-2024 Lymphocytes Auto (Unsp spec) [#/Vol] 2.53 10*3/uL 0.83-4.51 [facility] Automated lymphocyte count a s percentage of total leukocytesOrdered By: Lorraine Springer on 02-03-2024 Lymphocytes/100 WBC Auto (Unsp spec) 25.5 % 19-41 [facility] Basophil percentageOrdered B y: Lorraine Springer on 02-03-2024 Basophils/100 WBC (Bld) 0.4 % 0-1 [facility] Eosinophils/100 WBC (Bld) 0.5 % 0-5 [facility] Hemoglobin (Bld) [Mass/Vol] 13.5 g/dL 12.0-15.0 [facility] Monocytes/100 WBC (Bld) 6.8 % 0-10 [facility] Neutrophils (Bld) [#/Vol] 6.6 10*3/uL 2.0-7.7 [facility] Neutrophils/100 WBC (Bld) 66.5 % 47-70 [facility] WBC (Bld) [#/Vol] 9.9 10*3/uL 4.4-11.0 [facility] Determination of erythrocyte mean corpuscular volume (MCV)Ordered By: Lorranie Springer on 02-03-2024 MCV (RBC) [Entitic vol] 88.7 fL 81-99 [facility] Erythrocyte distribution wid th ratioOrdered By: Lorraine Springer on 02-03-2024 Erythrocyte distribution width (RBC) [Ratio] 13.8 % 11.6-14.6 [facility] Erythrocyte distribution wid th standard deviationOrdered By: Lorraine Springer on 02-03-2024 Erythrocyte distribution width (RBC) [Entitic vol] 44.4 fL 35.1-43.9 [facility] Hematocrit Auto (Bld) [Volum e fraction]Ordered By: Lorraine Springer on 02-03-2024 Hematocrit (Bld) [Volume fraction] 41.7 % 37-47 [facility] Immature granulocytes/100 WB C Auto (Bld)Ordered By: Lorraine Springer on 02-03-2024 Immature granulocytes/100 WBC (Bld) 0.300 % 0.0-0.9 [facility] Comment on above: IG% - Immature Granu locytes (promyelocytes, myelocytes and metamyelocytes) > 1% indicates that a LEFT SHIFT is Present. Laboratory - Hematology and Cell countsOrdered By: Lorraine Springer on 02-03-2024 MCH (RBC) [Entitic mass] 28.7 pg 27.0-32.0 [facility] MCHC (RBC) [Mass/Vol] 32.4 g/dL 32-36 [facility] Nucleated RBC/100 WBC (Bld) [Ratio] 0 % 0-5 [facility] Platelet mean volume (Bld) [Entitic vol] 11.1 fL 6.2-12.0 [facility] Platelets (Bld) [#/Vol] 190 10*3/uL 150-450 [facility] RBC Auto (Bld) [#/Vol]Ordere d By: Lorraine Springer on 02-03-2024 RBC (Bld) [#/Vol] 4.70 10*6/uL 4.2-5.4 [facility] Absolute lymphocyte countOrd ered By: Lorraine Springer on 01-07-2024 Lymphocytes Auto (Unsp spec) [#/Vol] 1.58 10*3/uL 0.83-4.51 [facility] Automated lymphocyte count a s percentage of total leukocytesOrdered By: Lorraine Springer on 01-07-2024 Lymphocytes/100 WBC Auto (Unsp spec) 21.1 % 19-41 [facility] Basophil percentageOrdered B y: Lorraine Springer on 01-07-2024 Basophils/100 WBC (Bld) 0.4 % 0-1 [facility] Eosinophils/100 WBC (Bld) 0.1 % 0-5 [facility] Hemoglobin (Bld) [Mass/Vol] 13.1 g/dL 12.0-15.0 [facility] Monocytes/100 WBC (Bld) 3.7 % 0-10 [facility] Neutrophils (Bld) [#/Vol] 5.6 10*3/uL 2.0-7.7 [facility] Neutrophils/100 WBC (Bld) 74.3 % 47-70 [facility] WBC (Bld) [#/Vol] 7.5 10*3/uL 4.4-11.0 [facility] Determination of erythrocyte mean corpuscular volume (MCV)Ordered By: Lorraine Springer on 01-07-2024 MCV (RBC) [Entitic vol] 89.5 fL 81-99 [facility] Erythrocyte distribution wid th ratioOrdered By: Lorraine Springer on 01-07-2024 Erythrocyte distribution width (RBC) [Ratio] 13.7 % 11.6-14.6 [facility] Erythrocyte distribution wid th standard deviationOrdered By: Lorraine Springer on 01-07-2024 Erythrocyte distribution width (RBC) [Entitic vol] 44.7 fL 35.1-43.9 [facility] Hematocrit Auto (Bld) [Volum e fraction]Ordered By: Lorraine Springer on 01-07-2024 Hematocrit (Bld) [Volume fraction] 41.1 % 37-47 [facility] Immature granulocytes/100 WB C Auto (Bld)Ordered By: Lorraine Springer on 01-07-2024 Immature granulocytes/100 WBC (Bld) 0.400 % 0.0-0.9 [facility] Comment on above: IG% - Immature Granu locytes (promyelocytes, myelocytes and metamyelocytes) > 1% indicates that a LEFT SHIFT is Present. Laboratory - Hematology and Cell countsOrdered By: Lorraine Springer on 01-07-2024 MCH (RBC) [Entitic mass] 28.5 pg 27.0-32.0 [facility] MCHC (RBC) [Mass/Vol] 31.9 g/dL 32-36 [facility] Nucleated RBC/100 WBC (Bld) [Ratio] 0 % 0-5 [facility] Platelet mean volume (Bld) [Entitic vol] 10.8 fL 6.2-12.0 [facility] Platelets (Bld) [#/Vol] 188 10*3/uL 150-450 [facility] RBC Auto (Bld) [#/Vol]Ordere d By: Lorraine Springer on 01-07-2024 RBC (Bld) [#/Vol] 4.59 10*6/uL 4.2-5.4 [facility] Absolute lymphocyte countOrd ered By: Jey Quesada on 12-13-2023 Lymphocytes Auto (Unsp spec) [#/Vol] 1.30 10*3/uL 0.83-4.51 [facility] Automated lymphocyte count a s percentage of total leukocytesOrdered By: Jey Quesada on 12-13-2023 Lymphocytes/100 WBC Auto (Unsp spec) 8.5 % 19-41 [facility] Basophil percentageOrdered B y: Jey Quesada on 12-13-2023 Basophil percentage 0-5 SEEN /hpf 0-[address] [facility] Basophils/100 WBC (Bld) 0.2 % 0-1 [facility] Bilirubin [Mass/Vol] 0.50 mg/dL 0.20-1.00 [facility] Comment on above: For patients on eltr ombopag therapy, use of Dimension Ovalo TBIL is not recommended. Chloride [Moles/Vol] 100 mmol/L 98-107 [facility] Eosinophils/100 WBC (Bld) 0.3 % 0-5 [facility] Glucose [Mass/Vol] 146 mg/dL 74-106 [facility] Comment on above: Fasting Glucose resu lt greater than or equal to 126 mg/dL suggests DIABETES MELLITUS per A.D.A. criteria. Hemoglobin (Bld) [Mass/Vol] 14.1 g/dL 12.0-15.0 [facility] Monocytes/100 WBC (Bld) 7.2 % 0-10 [facility] Neutrophils (Bld) [#/Vol] 12.8 10*3/uL 2.0-7.7 [facility] Neutrophils/100 WBC (Bld) 83.5 % 47-70 [facility] Potassium [Moles/Vol] 4.1 mmol/L 3.5-5.1 [facility] Protein [Mass/Vol] 7.2 g/dL 6.4-8.2 [facility] Sodium [Moles/Vol] 129 mmol/L 136-145 [facility] WBC (Bld) [#/Vol] 15.3 10*3/uL 4.4-11.0 [facility] Bilirubin Test strip Ql (U)O rdered By: Jey Quesada on 12-13-2023 Bilirubin Ql (U) Negative Negative [facility] Determination of erythrocyte mean corpuscular volume (MCV)Ordered By: Jey Quesada on 12-13-2023 MCV (RBC) [Entitic vol] 87.1 fL 81-99 [facility] Erythrocyte distribution wid th ratioOrdered By: Jey Quesada on 12-13-2023 Erythrocyte distribution width (RBC) [Ratio] 13.5 % 11.6-14.6 [facility] Erythrocyte distribution wid th standard deviationOrdered By: Jey Quesada on 12-13-2023 Erythrocyte distribution width (RBC) [Entitic vol] 42.6 fL 35.1-43.9 [facility] Hematocrit Auto (Bld) [Volum e fraction]Ordered By: Jey Quesada on 12-13-2023 Hematocrit (Bld) [Volume fraction] 42.7 % 37-47 [facility] Immature granulocytes/100 WB C Auto (Bld)Ordered By: Jey Quesada on 12-13-2023 Immature granulocytes/100 WBC (Bld) 0.300 % 0.0-0.9 [facility] Comment on above: IG% - Immature Granu locytes (promyelocytes, myelocytes and metamyelocytes) > 1% indicates that a LEFT SHIFT is Present. Ketones Test strip Ql (U)Ord ered By: Jey Quesada on 12-13-2023 Ketones Ql (U) 5 mg/dl Negative [facility] Laboratory - Chemistry and C hemistry - challengeOrdered By: Jey Quesada on 12-13-2023 Albumin/Globulin [Mass ratio] 0.9 {ratio} 0.9-2.4 [facility] ALP [Catalytic activity/Vol] 141 U/L 45-117 [facility] ALT [Catalytic activity/Vol] 43 U/L 13-56 [facility] CO2 [Moles/Vol] 22.0 mmol/L 21.0-32.0 [facility] Globulin (S) [Mass/Vol] 3.7 g/dL 2.2-4.2 [facility] Lipase [Catalytic activity/Vol] 37 U/L 13-75 [facility] Comment on above: Please note:LIPASE r evised reference range effective 23. New Lipase methodology. Expected to produce lower values than the previous assay method. NEW Reference Range: 13 - 75 U/L Urea nitrogen/Creatinine [Mass ratio] 39.8 mg/mg 10-20 [facility] Laboratory - Hematology and Cell countsOrdered By: Jey Quesada on 12-13-2023 MCH (RBC) [Entitic mass] 28.8 pg 27.0-32.0 [facility] MCHC (RBC) [Mass/Vol] 33.0 g/dL 32-36 [facility] Nucleated RBC/100 WBC (Bld) [Ratio] 0 % 0-5 [facility] Platelet mean volume (Bld) [Entitic vol] 9.5 fL 6.2-12.0 [facility] Platelets (Bld) [#/Vol] 226 10*3/uL 150-450 [facility] Laboratory - Microbiology an d Antimicrobial susceptibilityOrdered By: Jey Quesada on 12-13-2023 SARS-CoV-2 (COVID-19) RNA LUIS M+probe Ql (Unsp spec) [facility] SARS-CoV-2 (COVID-19) RNA LUIS M+probe Ql (Unsp spec) [facility] Mucus LM Ql (Urine sed)Order ed By: Jey Quesada on 12-13-2023 Mucus Ql (Urine sed) 0 SEEN /hpf [facility] Nitrite Test strip Ql (U)Ord ered By: Jey Quesada on 12-13-2023 Nitrite Ql (U) Negative Negative [facility] No Panel InformationOrdered By: Jey Quesada on 12-13-2023 Urine RBC 0 SEEN /hpf 0-5 [facility] Estimated Creatinine Clearance Calc 104.39 ml/min [facility] Estimated GFR (MDRD) Amer 144 mL/min >60 [facility] Comment on above: GFR Calc Estimated GFR (MDRD) Non-Af Amer 119 mL/min >60 [facility] Comment on above: Non- GFR Calc Protein Test strip Ql (U)Ord ered By: Jey Quesada on 12-13-2023 Protein Ql (U) Negative Negative [facility] RBC Auto (Bld) [#/Vol]Ordere d By: Jey Quesada on 12-13-2023 RBC (Bld) [#/Vol] 4.90 10*6/uL 4.2-5.4 [facility] Serum or plasma calcium lawrence urement (mass/volume)Ordered By: Jey Quesada on 12-13-2023 Calcium [Mass/Vol] 9.1 mg/dL 8.5-10.1 [facility] Serum or plasma creatinine m easurement (mass/volume)Ordered By: Jey Quesada on 12-13-2023 Creatinine [Mass/Vol] 0.55 mg/dL 0.55-1.02 [facility] Comment on above: The validity of the calculated GFR & GFRAA in patients over 70 years has not been determined. Clinical correlation is essential. Serum or plasma urea nitroge n measurement (mass/volume)Ordered By: Jey Quesada on 12-13-2023 Urea nitrogen [Mass/Vol] 22 mg/dL 7-18 [facility] Squamous epithelial cells de tection in urine sediment by light microscopyOrdered By: Jey Quesada on 12-13-2023 Epithelial cells.squamous LM Ql (Urine sed) 0-5 SEEN /hpf 5-10 [facility] Thin prep Papanicolaou smear with manual screeningOrdered By: Jey Quesada on 12-13-2023 Thin prep Papanicolaou smear with manual screening 3.5 g/dL 3.2-5.0 [facility] Thin prep Papanicolaou smear with manual screening 23 U/L 15-37 [facility] Thin prep Papanicolaou smear with manual screening 7 5-15 [facility] Urine blood detectionOrdered By: Jey Quesada on 12-13-2023 RBC Ql (U) Negative Negative [facility] Urine clarityOrdered By: Trevor Quesada on 12-13-2023 Clarity (U) Clear Clear [facility] Urine color determinationOrd ered By: Jey Quesada on 12-13-2023 Color (U) Straw Yellow [facility] Urine glucose detectionOrder ed By: Jey Quesada on 12-13-2023 Glucose Ql (U) 1000 mg/dl Normal [facility] Urine leukocyte esterase det ection by dipstickOrdered By: Jey Quesada on 12-13-2023 Leukocyte esterase Test strip Ql (U) 25 /ul Negative [facility] Urine pHOrdered By: Jey holloway on 12-13-2023 pH (U) 6.0 [pH] 5.0 - 8.0 [facility] Urine sediment bacteria coun t by microscopy (number/high power field)Ordered By: Jey Quesada on 12-13-2023 Bacteria LM.HPF (Urine sed) [#/Area] 0 /[HPF] None Seen [facility] Urine specific gravity measu rementOrdered By: Jey Quesada on 12-13-2023 Specific gravity (U) [Rel density] 1.010 1.002-1.030 [facility] Urine urobilinogen measureme ntOrdered By: Jey Quesada on 12-13-2023 Urobilinogen Ql (U) Normal mg/dl Normal [facility] Absolute lymphocyte countOrd ered By: [facility] on 11-19-2023 Lymphocytes Auto (Unsp spec) [#/Vol] 2.19 10*3/uL 0.83-4.51 [facility] Automated lymphocyte count a s percentage of total leukocytesOrdered By: Lorraine Springer on 11-19-2023 Lymphocytes/100 WBC Auto (Unsp spec) 23.3 % 19-41 [facility] Basophil percentageOrdered B y: Lorraine Springer on 11-19-2023 Basophils/100 WBC (Bld) 0.5 % 0-1 [facility] Eosinophils/100 WBC (Bld) 0.1 % 0-5 [facility] Hemoglobin (Bld) [Mass/Vol] 14.6 g/dL 12.0-15.0 [facility] Monocytes/100 WBC (Bld) 5.8 % 0-10 [facility] Neutrophils (Bld) [#/Vol] 6.6 10*3/uL 2.0-7.7 [facility] Neutrophils/100 WBC (Bld) 69.9 % 47-70 [facility] WBC (Bld) [#/Vol] 9.4 10*3/uL 4.4-11.0 [facility] Determination of erythrocyte mean corpuscular volume (MCV)Ordered By: Lorraine Springer on 11-19-2023 MCV (RBC) [Entitic vol] 90.4 fL 81-99 [facility] Erythrocyte distribution wid th ratioOrdered By: Lorraine Springer on 11-19-2023 Erythrocyte distribution width (RBC) [Ratio] 13.6 % 11.6-14.6 [facility] Erythrocyte distribution wid th standard deviationOrdered By: Lorraine Springer on 11-19-2023 Erythrocyte distribution width (RBC) [Entitic vol] 45.4 fL 35.1-43.9 [facility] Hematocrit Auto (Bld) [Volum e fraction]Ordered By: Lorraine Springer on 11-19-2023 Hematocrit (Bld) [Volume fraction] 46.2 % 37-47 [facility] Immature granulocytes/100 WB C Auto (Bld)Ordered By: Lorraine Springer on 11-19-2023 Immature granulocytes/100 WBC (Bld) 0.400 % 0.0-0.9 [facility] Comment on above: IG% - Immature Granu locytes (promyelocytes, myelocytes and metamyelocytes) > 1% indicates that a LEFT SHIFT is Present. Laboratory - Hematology and Cell countsOrdered By: Lorraine Springer on 11-19-2023 MCH (RBC) [Entitic mass] 28.6 pg 27.0-32.0 [facility] MCHC (RBC) [Mass/Vol] 31.6 g/dL 32-36 [facility] Nucleated RBC/100 WBC (Bld) [Ratio] 0 % 0-5 [facility] Platelet mean volume (Bld) [Entitic vol] 11.3 fL 6.2-12.0 [facility] Platelets (Bld) [#/Vol] 202 10*3/uL 150-450 [facility] RBC Auto (Bld) [#/Vol]Ordere d By: Lorraine Springer on 11-19-2023 RBC (Bld) [#/Vol] 5.11 10*6/uL 4.2-5.4 [facility] Absolute lymphocyte countOrd ered By: Lorraine Springer on 10-22-2023 Lymphocytes Auto (Unsp spec) [#/Vol] 1.91 10*3/uL 0.83-4.51 [facility] Basophil percentageOrdered B y: Lorraine Springer on 10-22-2023 Basophils/100 WBC (Bld) 0.6 % 0-1 [facility] Eosinophils/100 WBC (Bld) 4.5 % 0-5 [facility] Neutrophils (Bld) [#/Vol] 5.2 10*3/uL 2.0-7.7 [facility] Neutrophils/100 WBC (Bld) 62.0 % 47-70 [facility] WBC (Bld) [#/Vol] 8.3 10*3/uL 4.4-11.0 [facility] Blood erythrocytes count (nu mber/volume)Ordered By: Lorraine Springer on 10-22-2023 RBC (Bld) [#/Vol] 4.95 10*6/uL 4.2-5.4 [facility] Blood hemoglobin measurement (mass/volume)Ordered By: Lorraine Springer on 10-22-2023 Hemoglobin (Bld) [Mass/Vol] 14.4 g/dL 12.0-15.0 [facility] Blood lymphocytes/100 leukoc ytesOrdered By: Lorraine Springer on 10-22-2023 Lymphocytes/100 WBC (Bld) 23.0 % 19-41 [facility] Blood manual differential co mment interpretation (narrative result)Ordered By: Lorraine Springer on 10-22-2023 Manual differential comment Diego (Bld) [Interp] SCANNED [facility] Blood monocytes/100 leukocyt esOrdered By: Lorraine Springer on 10-22-2023 Monocytes/100 WBC (Bld) 9.5 % 0-10 [facility] Blood platelet mean volumeOr dered By: Lorraine Springer on 10-22-2023 Platelet mean volume (Bld) [Entitic vol] 9.9 fL 6.2-12.0 [facility] Determination of erythrocyte mean corpuscular volume (MCV)Ordered By: Lorraine Springer on 10-22-2023 MCV (RBC) [Entitic vol] 90.7 fL 81-99 [facility] Hematocrit Auto (Bld) [Volum e fraction]Ordered By: Lorraine Springer on 10-22-2023 Hematocrit (Bld) [Volume fraction] 44.9 % 37-47 [facility] Laboratory - Hematology and Cell countsOrdered By: Lorraine Springer on 10-22-2023 Erythrocyte distribution width (RBC) [Entitic vol] 46.6 fL 35.1-43.9 [facility] Erythrocyte distribution width (RBC) [Ratio] 14.0 % 11.6-14.6 [facility] Immature granulocytes/100 WBC (Bld) 0.400 % 0.0-0.9 [facility] Comment on above: IG% - Immature Granu locytes (promyelocytes, myelocytes and metamyelocytes) > 1% indicates that a LEFT SHIFT is Present. MCH (RBC) [Entitic mass] 29.1 pg 27.0-32.0 [facility] Nucleated RBC/100 WBC (Bld) [Ratio] 0 % 0-5 [facility] MCHC Auto (RBC) [Mass/Vol]Or dered By: Lorraine Springer on 10-22-2023 MCHC (RBC) [Mass/Vol] 32.1 g/dL 32-36 [facility] Platelets bldOrdered By: Moon Springer on 10-22-2023 Platelets (Bld) [#/Vol] 217 10*3/uL 150-450 [facility] Absolute lymphocyte countOrd ered By: Lorraine Springer on 09-17-2023 Lymphocytes Auto (Unsp spec) [#/Vol] 1.96 10*3/uL 0.83-4.51 [facility] Basophil percentageOrdered B y: Lorraine Springer on 09-17-2023 Basophils/100 WBC (Bld) 0.6 % 0-1 [facility] Eosinophils/100 WBC (Bld) 0.0 % 0-5 [facility] Neutrophils (Bld) [#/Vol] 4.6 10*3/uL 2.0-7.7 [facility] Neutrophils/100 WBC (Bld) 65.4 % 47-70 [facility] WBC (Bld) [#/Vol] 7.0 10*3/uL 4.4-11.0 [facility] Blood erythrocytes count (nu mber/volume)Ordered By: Lorraine Springer on 09-17-2023 RBC (Bld) [#/Vol] 4.75 10*6/uL 4.2-5.4 [facility] Blood hemoglobin measurement (mass/volume)Ordered By: Lorraine Springer on 09-17-2023 Hemoglobin (Bld) [Mass/Vol] 13.8 g/dL 12.0-15.0 [facility] Blood lymphocytes/100 leukoc ytesOrdered By: Lorraine Springer on 09-17-2023 Lymphocytes/100 WBC (Bld) 28.1 % 19-41 [facility] Blood monocytes/100 leukocyt esOrdered By: Lorraine Springer on 09-17-2023 Monocytes/100 WBC (Bld) 5.6 % 0-10 [facility] Blood platelet mean volumeOr dered By: Lorraine Springer on 09-17-2023 Platelet mean volume (Bld) [Entitic vol] 10.9 fL 6.2-12.0 [facility] Determination of erythrocyte mean corpuscular volume (MCV)Ordered By: Lorraine Springer on 09-17-2023 MCV (RBC) [Entitic vol] 92.4 fL 81-99 [facility] Hematocrit Auto (Bld) [Volum e fraction]Ordered By: Lorraine Springer on 09-17-2023 Hematocrit (Bld) [Volume fraction] 43.9 % 37-47 [facility] Laboratory - Hematology and Cell countsOrdered By: Lorraine Springer on 09-17-2023 Erythrocyte distribution width (RBC) [Entitic vol] 46.8 fL 35.1-43.9 [facility] Erythrocyte distribution width (RBC) [Ratio] 13.8 % 11.6-14.6 [facility] Immature granulocytes/100 WBC (Bld) 0.300 % 0.0-0.9 [facility] Comment on above: IG% - Immature Granu locytes (promyelocytes, myelocytes and metamyelocytes) > 1% indicates that a LEFT SHIFT is Present. MCH (RBC) [Entitic mass] 29.1 pg 27.0-32.0 [facility] Nucleated RBC/100 WBC (Bld) [Ratio] 0 % 0-5 [facility] MCHC Auto (RBC) [Mass/Vol]Or dered By: Lorraine Springer on 09-17-2023 MCHC (RBC) [Mass/Vol] 31.4 g/dL 32-36 [facility] Platelets bldOrdered By: Moon Springer on 09-17-2023 Platelets (Bld) [#/Vol] 210 10*3/uL 150-450 [facility] Absolute lymphocyte countOrd ered By: Lorraine Springer on 08-19-2023 Lymphocytes Auto (Unsp spec) [#/Vol] 2.06 10*3/uL 0.83-4.51 [facility] Basophil percentageOrdered B y: Lorraine Springer on 08-19-2023 Basophils/100 WBC (Bld) 0.4 % 0-1 [facility] Eosinophils/100 WBC (Bld) 3.3 % 0-5 [facility] Neutrophils (Bld) [#/Vol] 13.0 10*3/uL 2.0-7.7 [facility] Neutrophils/100 WBC (Bld) 79.2 % 47-70 [facility] WBC (Bld) [#/Vol] 16.5 10*3/uL 4.4-11.0 [facility] Blood erythrocytes count (nu mber/volume)Ordered By: Lorriane Springer on 08-19-2023 RBC (Bld) [#/Vol] 5.07 10*6/uL 4.2-5.4 [facility] Blood hemoglobin measurement (mass/volume)Ordered By: Lorraine Springer on 08-19-2023 Hemoglobin (Bld) [Mass/Vol] 14.7 g/dL 12.0-15.0 [facility] Blood lymphocytes/100 leukoc ytesOrdered By: Lorraine Sprigner on 08-19-2023 Lymphocytes/100 WBC (Bld) 12.5 % 19-41 [facility] Blood monocytes/100 leukocyt esOrdered By: Lorraine Springer on 08-19-2023 Monocytes/100 WBC (Bld) 3.3 % 0-10 [facility] Blood platelet mean volumeOr dered By: Lorraine Springer on 08-19-2023 Platelet mean volume (Bld) [Entitic vol] 11.3 fL 6.2-12.0 [facility] Determination of erythrocyte mean corpuscular volume (MCV)Ordered By: Lorraine Springer on 08-19-2023 MCV (RBC) [Entitic vol] 89.7 fL 81-99 [facility] Hematocrit Auto (Bld) [Volum e fraction]Ordered By: Lorraine Springer on 08-19-2023 Hematocrit (Bld) [Volume fraction] 45.5 % 37-47 [facility] Laboratory - Hematology and Cell countsOrdered By: Lorraine Springer on 08-19-2023 Erythrocyte distribution width (RBC) [Entitic vol] 42.5 fL 35.1-43.9 [facility] Erythrocyte distribution width (RBC) [Ratio] 13.1 % 11.6-14.6 [facility] Immature granulocytes/100 WBC (Bld) 1.300 % 0.0-0.9 [facility] Comment on above: IG% - Immature Granu locytes (promyelocytes, myelocytes and metamyelocytes) > 1% indicates that a LEFT SHIFT is Present. MCH (RBC) [Entitic mass] 29.0 pg 27.0-32.0 [facility] Nucleated RBC/100 WBC (Bld) [Ratio] 0 % 0-5 [facility] MCHC Auto (RBC) [Mass/Vol]Or dered By: Lorraine Springer on 08-19-2023 MCHC (RBC) [Mass/Vol] 32.3 g/dL 32-36 [facility] Platelets bldOrdered By: Moon Springer on 08-19-2023 Platelets (Bld) [#/Vol] 256 10*3/uL 150-450 [facility] Absolute lymphocyte countOrd ered By: Hesham Noguera on 08-16-2023 Lymphocytes Auto (Unsp spec) [#/Vol] 2.00 10*3/uL 0.83-4.51 [facility] Basophil percentageOrdered B y: Hesham Noguera on 08-16-2023 Basophil percentage 3.1 mg/dL 2.5-4.9 [facility] Basophils/100 WBC (Bld) 0.2 % 0-1 [facility] Chloride [Moles/Vol] 107 mmol/L 98-107 [facility] Eosinophils/100 WBC (Bld) 0.0 % 0-5 [facility] Glucose [Mass/Vol] 173 mg/dL 74-106 [facility] Comment on above: Fasting Glucose resu lt greater than or equal to 126 mg/dL suggests DIABETES MELLITUS per A.D.A. criteria. Neutrophils (Bld) [#/Vol] 12.8 10*3/uL 2.0-7.7 [facility] Neutrophils/100 WBC (Bld) 81.8 % 47-70 [facility] Potassium [Moles/Vol] 4.2 mmol/L 3.5-5.1 [facility] Sodium [Moles/Vol] 140 mmol/L 136-145 [facility] WBC (Bld) [#/Vol] 15.7 10*3/uL 4.4-11.0 [facility] Blood erythrocytes count (nu mber/volume)Ordered By: Hesham Noguera on 08-16-2023 RBC (Bld) [#/Vol] 4.49 10*6/uL 4.2-5.4 [facility] Blood hemoglobin measurement (mass/volume)Ordered By: Hesham Noguera on 08-16-2023 Hemoglobin (Bld) [Mass/Vol] 13.1 g/dL 12.0-15.0 [facility] Blood lymphocytes/100 leukoc ytesOrdered By: Hesham Noguera on 08-16-2023 Lymphocytes/100 WBC (Bld) 12.7 % 19-41 [facility] Blood monocytes/100 leukocyt esOrdered By: Hesham Noguera on 08-16-2023 Monocytes/100 WBC (Bld) 4.6 % 0-10 [facility] Blood platelet mean volumeOr dered By: Hesham Noguera on 08-16-2023 Platelet mean volume (Bld) [Entitic vol] 11.2 fL 6.2-12.0 [facility] Determination of erythrocyte mean corpuscular volume (MCV)Ordered By: Hesham Noguera on 08-16-2023 MCV (RBC) [Entitic vol] 92.4 fL 81-99 [facility] Glucose Glucometer (BldC) [M ass/Vol]Ordered By: Hesham Noguera on 08-16-2023 Glucose [Mass/Vol] 206 mg/dL 74-106 [facility] Comment on above: MANAGEMENT OF PATIEN T CARE PER NURSING PROTOCOL Hematocrit Auto (Bld) [Volum e fraction]Ordered By: Hesham Noguera on 08-16-2023 Hematocrit (Bld) [Volume fraction] 41.5 % 37-47 [facility] - Chemistry and C hemistry - challengeOrdered By: Hesham Noguera on 08-16-2023 CO2 [Moles/Vol] 24.0 mmol/L 21.0-32.0 [facility] Magnesium [Mass/Vol] 2.4 mg/dL 1.6-2.6 [facility] Urea nitrogen/Creatinine [Mass ratio] 31.3 mg/mg 10-20 [facility] - Hematology and Cell countsOrdered By: Hesham Noguera on 08-16-2023 Erythrocyte distribution width (RBC) [Entitic vol] 46.0 fL 35.1-43.9 [facility] Erythrocyte distribution width (RBC) [Ratio] 13.5 % 11.6-14.6 [facility] Immature granulocytes/100 WBC (Bld) 0.700 % 0.0-0.9 [facility] Comment on above: IG% - Immature Granu locytes (promyelocytes, myelocytes and metamyelocytes) > 1% indicates that a LEFT SHIFT is Present. MCH (RBC) [Entitic mass] 29.2 pg 27.0-32.0 [facility] Nucleated RBC/100 WBC (Bld) [Ratio] 0 % 0-5 [facility] MCHC Auto (RBC) [Mass/Vol]Or dered By: Hesham Noguera on 08-16-2023 MCHC (RBC) [Mass/Vol] 31.6 g/dL 32-36 [facility] No Panel InformationOrdered By: Hesham Noguera on 08-16-2023 Estimated Creatinine Clearance Calc 89.62 ml/min [facility] Estimated GFR (MDRD) Amer 158 mL/min >60 [facility] Comment on above: GFR Calc Estimated GFR (MDRD) Non-Af Amer 131 mL/min >60 [facility] Comment on above: Non- GFR Calc Platelets bldOrdered By: Wes Noguera on 08-16-2023 Platelets (Bld) [#/Vol] 220 10*3/uL 150-450 [facility] Serum or plasma calcium lawrence urement (mass/volume)Ordered By: Hesham Noguera on 08-16-2023 Calcium [Mass/Vol] 8.9 mg/dL 8.5-10.1 [facility] Serum or plasma creatinine m easurement (mass/volume)Ordered By: Hesham Noguera on 08-16-2023 Creatinine [Mass/Vol] 0.51 mg/dL 0.55-1.02 [facility] Comment on above: The validity of the calculated GFR & GFRAA in patients over 70 years has not been determined. Clinical correlation is essential. Serum or plasma urea nitroge n measurement (mass/volume)Ordered By: Hesham Noguera on 08-16-2023 Urea nitrogen [Mass/Vol] 16 mg/dL 7-18 [facility] Thin prep Papanicolaou smear with manual screeningOrdered By: Hesham Noguera on 08-16-2023 Thin prep Papanicolaou smear with manual screening 9 5-15 [facility] Basophil percentageOrdered B y: Amy Moreno on 08-15-2023 Bilirubin [Mass/Vol] 0.70 mg/dL 0.20-1.00 [facility] Comment on above: For patients on eltr ombopag therapy, use of Dimension Ovalo TBIL is not recommended. Protein [Mass/Vol] 7.5 g/dL 6.4-8.2 [facility] - Chemistry and C hemistry - challengeOrdered By: Amy Moreno on 08-15-2023 ALP [Catalytic activity/Vol] 148 U/L 45-117 [facility] ALT [Catalytic activity/Vol] 75 U/L 13-56 [facility] Globulin (S) [Mass/Vol] 4.3 g/dL 2.2-4.2 [facility] Serum or plasma albumin lawrence urement (mass/volume)Ordered By: Amy Moreno on 08-15-2023 Albumin [Mass/Vol] 3.2 g/dL 3.2-5.0 [facility] Serum or plasma albumin/glob ulin mass ratioOrdered By: Amy Moreno on 08-15-2023 Albumin/Globulin [Mass ratio] 0.7 {ratio} 0.9-2.4 [facility] Thin prep Papanicolaou smear with manual screeningOrdered By: Amy Moreno on 08-15-2023 Thin prep Papanicolaou smear with manual screening 32 U/L 15-37 [facility] Absolute lymphocyte countOrd ered By: Jey Quesada on 08-14-2023 Lymphocytes Auto (Unsp spec) [#/Vol] 1.62 10*3/uL 0.83-4.51 [facility] Basophil percentageOrdered B y: Jey Quesada on 08-14-2023 Basophils/100 WBC (Bld) 0.4 % 0-1 [facility] Bilirubin [Mass/Vol] 0.70 mg/dL 0.20-1.00 [facility] Comment on above: For patients on eltr ombopag therapy, use of Dimension Ovalo TBIL is not recommended. Chloride [Moles/Vol] 102 mmol/L 98-107 [facility] Eosinophils/100 WBC (Bld) 0.0 % 0-5 [facility] Glucose [Mass/Vol] 153 mg/dL 74-106 [facility] Comment on above: Fasting Glucose resu lt greater than or equal to 126 mg/dL suggests DIABETES MELLITUS per A.D.A. criteria. Neutrophils (Bld) [#/Vol] 10.5 10*3/uL 2.0-7.7 [facility] Neutrophils/100 WBC (Bld) 79.4 % 47-70 [facility] Potassium [Moles/Vol] 3.8 mmol/L 3.5-5.1 [facility] Protein [Mass/Vol] 8.0 g/dL 6.4-8.2 [facility] Sodium [Moles/Vol] 137 mmol/L 136-145 [facility] WBC (Bld) [#/Vol] 13.2 10*3/uL 4.4-11.0 [facility] Blood erythrocytes count (nu mber/volume)Ordered By: Jey Quesada on 08-14-2023 RBC (Bld) [#/Vol] 4.85 10*6/uL 4.2-5.4 [facility] Blood hemoglobin measurement (mass/volume)Ordered By: Jey Quesada on 08-14-2023 Hemoglobin (Bld) [Mass/Vol] 14.0 g/dL 12.0-15.0 [facility] Blood lymphocytes/100 leukoc ytesOrdered By: Jey Quesada on 08-14-2023 Lymphocytes/100 WBC (Bld) 12.3 % 19-41 [facility] Blood monocytes/100 leukocyt esOrdered By: Jey Quesada on 08-14-2023 Monocytes/100 WBC (Bld) 7.5 % 0-10 [facility] Blood platelet mean volumeOr dered By: Jey Quesada on 08-14-2023 Platelet mean volume (Bld) [Entitic vol] 10.7 fL 6.2-12.0 [facility] Determination of erythrocyte mean corpuscular volume (MCV)Ordered By: Jey Quesada on 08-14-2023 MCV (RBC) [Entitic vol] 90.7 fL 81-99 [facility] Hematocrit Auto (Bld) [Volum e fraction]Ordered By: Jey Quesada on 08-14-2023 Hematocrit (Bld) [Volume fraction] 44.0 % 37-47 [facility] - Chemistry and C hemistry - challengeOrdered By: Jey Quesada on 08-14-2023 ALP [Catalytic activity/Vol] 150 U/L 45-117 [facility] ALT [Catalytic activity/Vol] 72 U/L 13-56 [facility] CO2 [Moles/Vol] 26.0 mmol/L 21.0-32.0 [facility] Globulin (S) [Mass/Vol] 4.2 g/dL 2.2-4.2 [facility] Natriuretic peptide B (Bld) [Mass/Vol] 2.9 pg/mL 0-100 [facility] Urea nitrogen/Creatinine [Mass ratio] 22.2 mg/mg 10-20 [facility] - Hematology and Cell countsOrdered By: Jey Quesada on 08-14-2023 Erythrocyte distribution width (RBC) [Entitic vol] 44.6 fL 35.1-43.9 [facility] Erythrocyte distribution width (RBC) [Ratio] 13.4 % 11.6-14.6 [facility] Immature granulocytes/100 WBC (Bld) 0.400 % 0.0-0.9 [facility] Comment on above: IG% - Immature Granu locytes (promyelocytes, myelocytes and metamyelocytes) > 1% indicates that a LEFT SHIFT is Present. MCH (RBC) [Entitic mass] 28.9 pg 27.0-32.0 [facility] Nucleated RBC/100 WBC (Bld) [Ratio] 0 % 0-5 [facility] MCHC Auto (RBC) [Mass/Vol]Or dered By: Jey Quesada on 08-14-2023 MCHC (RBC) [Mass/Vol] 31.8 g/dL 32-36 [facility] No Panel InformationOrdered By: Jey Quesada on 08-14-2023 Estimated Creatinine Clearance Calc 67.22 ml/min [facility] Estimated GFR (MDRD) Amer 114 mL/min >60 [facility] Comment on above: GFR Calc Estimated GFR (MDRD) Non-Af Amer 94 mL/min >60 [facility] Comment on above: Non- GFR Calc Troponin I High Sensitivity < 3 pg/mL 3.0-54.0 [facility] Comment on above: Please Note: New Janeth t Units and Gender Specific Reference Ranges. For more information see Policy Stat Procedure Ovalo High Sensitivity Troponin (TNIH) and attachments. Platelets bldOrdered By: Trevor Quesada on 08-14-2023 Platelets (Bld) [#/Vol] 182 10*3/uL 150-450 [facility] Respiratory pathogens DNA an d RNA panel LUIS M+probe (Resp)Ordered By: Amy Moreno on 08-14-2023 Respiratory Panel (PCR) Rhinovirus [facility] Serum or plasma albumin lawrence urement (mass/volume)Ordered By: Jey Quesada on 08-14-2023 Albumin [Mass/Vol] 3.8 g/dL 3.2-5.0 [facility] Serum or plasma albumin/glob ulin mass ratioOrdered By: Jey Quesada on 08-14-2023 Albumin/Globulin [Mass ratio] 0.9 {ratio} 0.9-2.4 [facility] Serum or plasma calcium lawrence urement (mass/volume)Ordered By: Jey Quesada on 08-14-2023 Calcium [Mass/Vol] 9.2 mg/dL 8.5-10.1 [facility] Serum or plasma creatinine m easurement (mass/volume)Ordered By: Jey Quesada on 08-14-2023 Creatinine [Mass/Vol] 0.68 mg/dL 0.55-1.02 [facility] Comment on above: The validity of the calculated GFR & GFRAA in patients over 70 years has not been determined. Clinical correlation is essential. Serum or plasma urea nitroge n measurement (mass/volume)Ordered By: Jey Quesada on 08-14-2023 Urea nitrogen [Mass/Vol] 15 mg/dL 7-18 [facility] Serum procalcitonin measurem entOrdered By: Amy Josh on 08-14-2023 Procalcitonin [Mass/Vol] 0.12 ng/mL 0.00-0.09 [facility] Comment on above: A procalcitonin (PCT [...] smear with manual screening 50 U/L 15-37 [facility] Thin prep Papanicolaou smear with manual screening 9 5-15 [facility] Absolute lymphocyte countOrd ered By: Lorraine Springer on 07-17-2023 Lymphocytes Auto (Unsp spec) [#/Vol] 1.66 10*3/uL 0.83-4.51 [facility] Basophil percentageOrdered B y: Lorraine Springer on 07-17-2023 Basophils/100 WBC (Bld) 0.4 % 0-1 [facility] Eosinophils/100 WBC (Bld) 0.3 % 0-5 [facility] Neutrophils (Bld) [#/Vol] 5.9 10*3/uL 2.0-7.7 [facility] Neutrophils/100 WBC (Bld) 73.4 % 47-70 [facility] WBC (Bld) [#/Vol] 8.0 10*3/uL 4.4-11.0 [facility] Blood erythrocytes count (nu mber/volume)Ordered By: Lorraine Springer on 07-17-2023 RBC (Bld) [#/Vol] 4.53 10*6/uL 4.2-5.4 [facility] Blood hemoglobin measurement (mass/volume)Ordered By: Lorraine Springer on 07-17-2023 Hemoglobin (Bld) [Mass/Vol] 13.3 g/dL 12.0-15.0 [facility] Blood lymphocytes/100 leukoc ytesOrdered By: [facility] on 07-17-2023 Lymphocytes/100 WBC (Bld) 20.8 % 19-41 [facility] Blood monocytes/100 leukocyt esOrdered By: [facility] on 07-17-2023 Monocytes/100 WBC (Bld) 5.0 % 0-10 [facility] Blood platelet mean volumeOr dered By: Lorraine Springer on 07-17-2023 Platelet mean volume (Bld) [Entitic vol] 9.5 fL 6.2-12.0 [facility] Determination of erythrocyte mean corpuscular volume (MCV)Ordered By: Lorraine Springer on 07-17-2023 MCV (RBC) [Entitic vol] 92.1 fL 81-99 [facility] Hematocrit Auto (Bld) [Volum e fraction]Ordered By: [facility] on 07-17-2023 Hematocrit (Bld) [Volume fraction] 41.7 % 37-47 [facility] - Hematology and Cell countsOrdered By: [facility] on 07-17-2023 Erythrocyte distribution width (RBC) [Entitic vol] 45.3 fL 35.1-43.9 [facility] Erythrocyte distribution width (RBC) [Ratio] 13.3 % 11.6-14.6 [facility] Immature granulocytes/100 WBC (Bld) 0.100 % 0.0-0.9 [facility] Comment on above: IG% - Immature Granu locytes (promyelocytes, myelocytes and metamyelocytes) > 1% indicates that a LEFT SHIFT is Present. MCH (RBC) [Entitic mass] 29.4 pg 27.0-32.0 [facility] Nucleated RBC/100 WBC (Bld) [Ratio] 0 % 0-5 [facility] MCHC Auto (RBC) [Mass/Vol]Or dered By: Lorraine Springer on 07-17-2023 MCHC (RBC) [Mass/Vol] 31.9 g/dL 32-36 [facility] Platelets bldOrdered By: Moon Springer on 07-17-2023 Platelets (Bld) [#/Vol] 190 10*3/uL 150-450 [facility] Absolute lymphocyte countOrd ered By: Lorraine Springer on 06-18-2023 Lymphocytes Auto (Unsp spec) [#/Vol] 1.70 10*3/uL 0.83-4.51 [facility] Basophil percentageOrdered B y: Lorraine Springer on 06-18-2023 Basophils/100 WBC (Bld) 0.4 % 0-1 [facility] Eosinophils/100 WBC (Bld) 0.4 % 0-5 [facility] Neutrophils (Bld) [#/Vol] 5.3 10*3/uL 2.0-7.7 [facility] Neutrophils/100 WBC (Bld) 71.4 % 47-70 [facility] WBC (Bld) [#/Vol] 7.4 10*3/uL 4.4-11.0 [facility] Blood erythrocytes count (nu mber/volume)Ordered By: Lorraine Springer on 06-18-2023 RBC (Bld) [#/Vol] 4.66 10*6/uL 4.2-5.4 [facility] Blood hemoglobin measurement (mass/volume)Ordered By: Lorraine Srpinger on 06-18-2023 Hemoglobin (Bld) [Mass/Vol] 13.9 g/dL 12.0-15.0 [facility] Blood lymphocytes/100 leukoc ytesOrdered By: Lorraine Springer on 06-18-2023 Lymphocytes/100 WBC (Bld) 23.1 % 19-41 [facility] Blood monocytes/100 leukocyt esOrdered By: Lorraine Springer on 06-18-2023 Monocytes/100 WBC (Bld) 4.4 % 0-10 [facility] Blood platelet mean volumeOr dered By: Lorraine Springer on 06-18-2023 Platelet mean volume (Bld) [Entitic vol] 11.9 fL 6.2-12.0 [facility] Determination of erythrocyte mean corpuscular volume (MCV)Ordered By: Lorraine Springer on 06-18-2023 MCV (RBC) [Entitic vol] 92.5 fL 81-99 [facility] Hematocrit Auto (Bld) [Volum e fraction]Ordered By: Lorraine Springer on 06-18-2023 Hematocrit (Bld) [Volume fraction] 43.1 % 37-47 [facility] - Hematology and Cell countsOrdered By: Lorraine Springer on 06-18-2023 Erythrocyte distribution width (RBC) [Entitic vol] 46.5 fL 35.1-43.9 [facility] Erythrocyte distribution width (RBC) [Ratio] 13.6 % 11.6-14.6 [facility] Immature granulocytes/100 WBC (Bld) 0.300 % 0.0-0.9 [facility] Comment on above: IG% - Immature Granu locytes (promyelocytes, myelocytes and metamyelocytes) > 1% indicates that a LEFT SHIFT is Present. MCH (RBC) [Entitic mass] 29.8 pg 27.0-32.0 [facility] Nucleated RBC/100 WBC (Bld) [Ratio] 0 % 0-5 [facility] MCHC Auto (RBC) [Mass/Vol]Or dered By: Lorraine Springer on 06-18-2023 MCHC (RBC) [Mass/Vol] 32.3 g/dL 32-36 [facility] Platelets bldOrdered By: Moon Springer on 06-18-2023 Platelets (Bld) [#/Vol] 149 10*3/uL 150-450 [facility] NM CARDIAC PERF STRESS/PHARM on 05-26-2023 [facility] Absolute lymphocyte countOrd ered By: Lorraine Springer on 05-20-2023 Lymphocytes Auto (Unsp spec) [#/Vol] 2.71 10*3/uL 0.83-4.51 [facility] Basophil percentageOrdered B y: Lorraine Springer on 08-08-2023 Basophils/100 WBC (Bld) 0.4 % 0-1 [facility] Eosinophils/100 WBC (Bld) 0.3 % 0-5 [facility] Neutrophils (Bld) [#/Vol] 5.6 10*3/uL 2.0-7.7 [facility] Neutrophils/100 WBC (Bld) 60.5 % 47-70 [facility] WBC (Bld) [#/Vol] 9.2 10*3/uL 4.4-11.0 [facility] Blood erythrocytes count (nu mber/volume)Ordered By: Lorraine Springer on 05-20-2023 RBC (Bld) [#/Vol] 4.79 10*6/uL 4.2-5.4 [facility] Blood hemoglobin measurement (mass/volume)Ordered By: Lorraine Springer on 05-20-2023 Hemoglobin (Bld) [Mass/Vol] 13.9 g/dL 12.0-15.0 [facility] Blood lymphocytes/100 leukoc ytesOrdered By: Lorraine Springer on 05-20-2023 Lymphocytes/100 WBC (Bld) 29.4 % 19-41 [facility] Blood manual differential co mment interpretation (narrative result)Ordered By: Lorraine Springer on 05-20-2023 Manual differential comment Diego (Bld) [Interp] SCANNED [facility] Blood monocytes/100 leukocyt esOrdered By: Lorraine Springer on 05-20-2023 Monocytes/100 WBC (Bld) 9.0 % 0-10 [facility] Blood platelet mean volumeOr dered By: Lorraine Springer on 05-20-2023 Platelet mean volume (Bld) [Entitic vol] 9.9 fL 6.2-12.0 [facility] Determination of erythrocyte mean corpuscular volume (MCV)Ordered By: Lorraine Springer on 05-20-2023 MCV (RBC) [Entitic vol] 92.9 fL 81-99 [facility] Hematocrit Auto (Bld) [Volum e fraction]Ordered By: Lorraine Springer on 05-20-2023 Hematocrit (Bld) [Volume fraction] 44.5 % 37-47 [facility] - Hematology and Cell countsOrdered By: Lorraine Springer on 05-20-2023 Erythrocyte distribution width (RBC) [Entitic vol] 46.7 fL 35.1-43.9 [facility] Erythrocyte distribution width (RBC) [Ratio] 13.7 % 11.6-14.6 [facility] Immature granulocytes/100 WBC (Bld) 0.400 % 0.0-0.9 [facility] Comment on above: IG% - Immature Granu locytes (promyelocytes, myelocytes and metamyelocytes) > 1% indicates that a LEFT SHIFT is Present. MCH (RBC) [Entitic mass] 29.0 pg 27.0-32.0 [facility] Nucleated RBC/100 WBC (Bld) [Ratio] 0 % 0-5 [facility] MCHC Auto (RBC) [Mass/Vol]Or dered By: Lorraine Springer on 05-20-2023 MCHC (RBC) [Mass/Vol] 31.2 g/dL 32-36 [facility] Platelets bldOrdered By: Moon Springer on 05-20-2023 Platelets (Bld) [#/Vol] 207 10*3/uL 150-450 [facility] Absolute lymphocyte countOrd ered By: Lorraine Springer on 05-05-2023 Lymphocytes Auto (Unsp spec) [#/Vol] 2.52 10*3/uL 0.83-4.51 [facility] Basophil percentageOrdered B y: Lorraine Springer on 05-05-2023 Basophils/100 WBC (Bld) 0.6 % 0-1 [facility] Eosinophils/100 WBC (Bld) 0.2 % 0-5 [facility] Neutrophils (Bld) [#/Vol] 5.3 10*3/uL 2.0-7.7 [facility] Neutrophils/100 WBC (Bld) 61.7 % 47-70 [facility] WBC (Bld) [#/Vol] 8.6 10*3/uL 4.4-11.0 [facility] Blood erythrocytes count (nu mber/volume)Ordered By: Lorraine Springer on 05-05-2023 RBC (Bld) [#/Vol] 5.01 10*6/uL 4.2-5.4 [facility] Blood hemoglobin measurement (mass/volume)Ordered By: Lorraine Springer on 05-05-2023 Hemoglobin (Bld) [Mass/Vol] 14.8 g/dL 12.0-15.0 [facility] Blood lymphocytes/100 leukoc ytesOrdered By: Lorraine Springer on 05-05-2023 Lymphocytes/100 WBC (Bld) 29.3 % 19-41 [facility] Blood monocytes/100 leukocyt esOrdered By: Lorraine Springer on 05-05-2023 Monocytes/100 WBC (Bld) 7.9 % 0-10 [facility] Blood platelet adequacy dete ction by light microscopyOrdered By: Lorraine Springer on 05-05-2023 Platelets LM Ql (Bld) ADEQUATE ADEQ [facility] Blood platelet mean volumeOr dered By: Lorraine Springer on 05-05-2023 Platelet mean volume (Bld) [Entitic vol] 10.6 fL 6.2-12.0 [facility] Determination of erythrocyte mean corpuscular volume (MCV)Ordered By: Lorraine Springer on 05-05-2023 MCV (RBC) [Entitic vol] 91.8 fL 81-99 [facility] Hematocrit Auto (Bld) [Volum e fraction]Ordered By: Lorraine Springer on 05-05-2023 Hematocrit (Bld) [Volume fraction] 46.0 % 37-47 [facility] - Hematology and Cell countsOrdered By: Lorraine Springer on 05-05-2023 Anisocytosis Ql (Bld) RARE [facility] Erythrocyte distribution width (RBC) [Entitic vol] 45.9 fL 35.1-43.9 [facility] Erythrocyte distribution width (RBC) [Ratio] 13.7 % 11.6-14.6 [facility] Immature granulocytes/100 WBC (Bld) 0.300 % 0.0-0.9 [facility] Comment on above: IG% - Immature Granu locytes (promyelocytes, myelocytes and metamyelocytes) > 1% indicates that a LEFT SHIFT is Present. MCH (RBC) [Entitic mass] 29.5 pg 27.0-32.0 [facility] Nucleated RBC/100 WBC (Bld) [Ratio] 0 % 0-5 [facility] MCHC Auto (RBC) [Mass/Vol]Or dered By: Lorraine Springer on 05-05-2023 MCHC (RBC) [Mass/Vol] 32.2 g/dL 32-36 [facility] No Panel InformationOrdered By: Lorraine Springer on 05-05-2023 Atypical Lymphocytes 1+ % [facility] Platelets bldOrdered By: Moon Springer on 05-05-2023 Platelets (Bld) [#/Vol] 222 10*3/uL 150-450 [facility] RBC morphologyOrdered By: Anastacia pSringer on 05-05-2023 RBC morphology finding Nom (Bld) N CHROM NORMAL NORM C&C [facility] Absolute lymphocyte countOrd ered By: Lorraine Springer on 03-17-2023 Lymphocytes Auto (Unsp spec) [#/Vol] 2.43 10*3/uL 0.83-4.51 [facility] Basophil percentageOrdered B y: Lorraine Springer on 03-17-2023 Basophils/100 WBC (Bld) 0.4 % 0-1 [facility] Eosinophils/100 WBC (Bld) 0.2 % 0-5 [facility] Neutrophils (Bld) [#/Vol] 7.8 10*3/uL 2.0-7.7 [facility] Neutrophils/100 WBC (Bld) 71.4 % 47-70 [facility] WBC (Bld) [#/Vol] 10.8 10*3/uL 4.4-11.0 [facility] Blood erythrocytes count (nu mber/volume)Ordered By: Lorraine Springer on 03-17-2023 RBC (Bld) [#/Vol] 4.78 10*6/uL 4.2-5.4 [facility] Blood hemoglobin measurement (mass/volume)Ordered By: Lorraine Springer on 03-17-2023 Hemoglobin (Bld) [Mass/Vol] 14.2 g/dL 12.0-15.0 [facility] Blood lymphocytes/100 leukoc ytesOrdered By: Lorraine Springer on 03-17-2023 Lymphocytes/100 WBC (Bld) 22.4 % 19-41 [facility] Blood monocytes/100 leukocyt esOrdered By: Lorraine Springer on 03-17-2023 Monocytes/100 WBC (Bld) 5.3 % 0-10 [facility] Blood platelet mean volumeOr dered By: Lorraine Springer on 03-17-2023 Platelet mean volume (Bld) [Entitic vol] 9.5 fL 6.2-12.0 [facility] Determination of erythrocyte mean corpuscular volume (MCV)Ordered By: Lorraine Springer on 03-17-2023 MCV (RBC) [Entitic vol] 90.2 fL 81-99 [facility] Hematocrit Auto (Bld) [Volum e fraction]Ordered By: Lorraine Springer on 03-17-2023 Hematocrit (Bld) [Volume fraction] 43.1 % 37-47 [facility] - Hematology and Cell countsOrdered By: Lorraine Springer on 03-17-2023 Erythrocyte distribution width (RBC) [Entitic vol] 44.8 fL 35.1-43.9 [facility] Erythrocyte distribution width (RBC) [Ratio] 13.6 % 11.6-14.6 [facility] Immature granulocytes/100 WBC (Bld) 0.300 % 0.0-0.9 [facility] Comment on above: IG% - Immature Granu locytes (promyelocytes, myelocytes and metamyelocytes) > 1% indicates that a LEFT SHIFT is Present. MCH (RBC) [Entitic mass] 29.7 pg 27.0-32.0 [facility] Nucleated RBC/100 WBC (Bld) [Ratio] 0 % 0-5 [facility] MCHC Auto (RBC) [Mass/Vol]Or dered By: Lorraine Springer on 03-17-2023 MCHC (RBC) [Mass/Vol] 32.9 g/dL 32-36 [facility] Platelets bldOrdered By: Moon Springer on 03-17-2023 Platelets (Bld) [#/Vol] 201 10*3/uL 150-450 [facility] Absolute lymphocyte countOrd ered By: Dr. Springer on 02-17-2023 Lymphocytes Auto (Unsp spec) [#/Vol] 2.63 10*3/uL 0.83-4.51 [facility] Basophil percentageOrdered B y: Dr. Springer on 02-17-2023 Basophils/100 WBC (Bld) 0.5 % 0-1 [facility] Eosinophils/100 WBC (Bld) 0.4 % 0-5 [facility] Neutrophils (Bld) [#/Vol] 6.5 10*3/uL 2.0-7.7 [facility] Neutrophils/100 WBC (Bld) 65.4 % 47-70 [facility] WBC (Bld) [#/Vol] 10.0 10*3/uL 4.4-11.0 [facility] Blood erythrocytes count (nu mber/volume)Ordered By: Dr. Springer on 02-17-2023 RBC (Bld) [#/Vol] 5.05 10*6/uL 4.2-5.4 [facility] Blood hemoglobin measurement (mass/volume)Ordered By: Dr. Springer on 02-17-2023 Hemoglobin (Bld) [Mass/Vol] 14.8 g/dL 12.0-15.0 [facility] Blood lymphocytes/100 leukoc ytesOrdered By: Dr. Springer on 02-17-2023 Lymphocytes/100 WBC (Bld) 26.4 % 19-41 [facility] Blood monocytes/100 leukocyt esOrdered By: Dr. Springer on 02-17-2023 Monocytes/100 WBC (Bld) 7.0 % 0-10 [facility] Blood platelet mean volumeOr dered By: Dr. Springer on 02-17-2023 Platelet mean volume (Bld) [Entitic vol] 10.8 fL 6.2-12.0 [facility] Determination of erythrocyte mean corpuscular volume (MCV)Ordered By: Dr. Springer on 02-17-2023 MCV (RBC) [Entitic vol] 90.7 fL 81-99 [facility] Hematocrit Auto (Bld) [Volum e fraction]Ordered By: Dr. Springer on 02-17-2023 Hematocrit (Bld) [Volume fraction] 45.8 % 37-47 [facility] Laboratory - Hematology and Cell countsOrdered By: Dr. Springer on 02-17-2023 Erythrocyte distribution width (RBC) [Entitic vol] 45.1 fL 35.1-43.9 [facility] Erythrocyte distribution width (RBC) [Ratio] 13.6 % 11.6-14.6 [facility] Immature granulocytes/100 WBC (Bld) 0.300 % 0.0-0.9 [facility] Comment on above: IG% - Immature Granu locytes (promyelocytes, myelocytes and metamyelocytes) > 1% indicates that a LEFT SHIFT is Present. MCH (RBC) [Entitic mass] 29.3 pg 27.0-32.0 [facility] Nucleated RBC/100 WBC (Bld) [Ratio] 0 % 0-5 [facility] MCHC Auto (RBC) [Mass/Vol]Or dered By: Dr. Springer on 02-17-2023 MCHC (RBC) [Mass/Vol] 32.3 g/dL 32-36 [facility] Platelets bldOrdered By: Dr. Springer on 02-17-2023 Platelets (Bld) [#/Vol] 192 10*3/uL 150-450 [facility] Absolute lymphocyte countOrd ered By: Dr. Springer on 01-15-2023 Lymphocytes Auto (Unsp spec) [#/Vol] 1.99 10*3/uL 0.83-4.51 [facility] Basophil percentageOrdered B y: Dr. Springer on 01-15-2023 Basophils/100 WBC (Bld) 0.7 % 0-1 [facility] Eosinophils/100 WBC (Bld) 0.4 % 0-5 [facility] Neutrophils (Bld) [#/Vol] 4.6 10*3/uL 2.0-7.7 [facility] Neutrophils/100 WBC (Bld) 64.5 % 47-70 [facility] WBC (Bld) [#/Vol] 7.2 10*3/uL 4.4-11.0 [facility] Blood erythrocytes count (nu mber/volume)Ordered By: Dr. Springer on 01-15-2023 RBC (Bld) [#/Vol] 5.12 10*6/uL 4.2-5.4 [facility] Blood hemoglobin measurement (mass/volume)Ordered By: Dr. Springer on 01-15-2023 Hemoglobin (Bld) [Mass/Vol] 14.9 g/dL 12.0-15.0 [facility] Blood lymphocytes/100 leukoc ytesOrdered By: Dr. Springer on 01-15-2023 Lymphocytes/100 WBC (Bld) 27.7 % 19-41 [facility] Blood monocytes/100 leukocyt esOrdered By: Dr. Springer on 01-15-2023 Monocytes/100 WBC (Bld) 6.4 % 0-10 [facility] Blood platelet mean volumeOr dered By: Dr. Springer on 01-15-2023 Platelet mean volume (Bld) [Entitic vol] 12.3 fL 6.2-12.0 [facility] Determination of erythrocyte mean corpuscular volume (MCV)Ordered By: Dr. Springer on 01-15-2023 MCV (RBC) [Entitic vol] 91.6 fL 81-99 [facility] Hematocrit Auto (Bld) [Volum e fraction]Ordered By: Dr. Springer on 01-15-2023 Hematocrit (Bld) [Volume fraction] 46.9 % 37-47 [facility] Laboratory - Hematology and Cell countsOrdered By: Dr. Springer on 01-15-2023 Erythrocyte distribution width (RBC) [Entitic vol] 46.8 fL 35.1-43.9 [facility] Erythrocyte distribution width (RBC) [Ratio] 13.9 % 11.6-14.6 [facility] Immature granulocytes/100 WBC (Bld) 0.300 % 0.0-0.9 [facility] Comment on above: IG% - Immature Granu locytes (promyelocytes, myelocytes and metamyelocytes) > 1% indicates that a LEFT SHIFT is Present. MCH (RBC) [Entitic mass] 29.1 pg 27.0-32.0 [facility] Nucleated RBC/100 WBC (Bld) [Ratio] 0 % 0-5 [facility] MCHC Auto (RBC) [Mass/Vol]Or dered By: Dr. Springer on 01-15-2023 MCHC (RBC) [Mass/Vol] 31.8 g/dL 32-36 [facility] Platelets bldOrdered By: Dr. Springer on 01-15-2023 Platelets (Bld) [#/Vol] 168 10*3/uL 150-450 [facility] Absolute lymphocyte countOrd ered By: Dr. Springer on 12-16-2022 Lymphocytes Auto (Unsp spec) [#/Vol] 2.57 10*3/uL 0.83-4.51 [facility] Basophil percentageOrdered B y: Dr. Springer on 12-16-2022 Basophils/100 WBC (Bld) 0.5 % 0-1 [facility] Eosinophils/100 WBC (Bld) 0.3 % 0-5 [facility] Neutrophils (Bld) [#/Vol] 4.5 10*3/uL 2.0-7.7 [facility] Neutrophils/100 WBC (Bld) 57.5 % 47-70 [facility] WBC (Bld) [#/Vol] 7.8 10*3/uL 4.4-11.0 [facility] Blood erythrocytes count (nu mber/volume)Ordered By: Dr. Springer on 12-16-2022 RBC (Bld) [#/Vol] 4.75 10*6/uL 4.2-5.4 [facility] Blood hemoglobin measurement (mass/volume)Ordered By: Dr. Springer on 12-16-2022 Hemoglobin (Bld) [Mass/Vol] 13.9 g/dL 12.0-15.0 [facility] Blood lymphocytes/100 leukoc ytesOrdered By: Dr. Springer on 12-16-2022 Lymphocytes/100 WBC (Bld) 33.2 % 19-41 [facility] Blood monocytes/100 leukocyt esOrdered By: Dr. Springer on 12-16-2022 Monocytes/100 WBC (Bld) 8.1 % 0-10 [facility] Blood platelet mean volumeOr dered By: Dr. Springer on 12-16-2022 Platelet mean volume (Bld) [Entitic vol] 11.0 fL 6.2-12.0 [facility] Determination of erythrocyte mean corpuscular volume (MCV)Ordered By: Dr. Springer on 12-16-2022 MCV (RBC) [Entitic vol] 92.8 fL 81-99 [facility] Hematocrit Auto (Bld) [Volum e fraction]Ordered By: Dr. Springer on 12-16-2022 Hematocrit (Bld) [Volume fraction] 44.1 % 37-47 [facility] - Hematology and Cell countsOrdered By: Dr. Springer on 12-16-2022 Erythrocyte distribution width (RBC) [Entitic vol] 47.1 fL 35.1-43.9 [facility] Erythrocyte distribution width (RBC) [Ratio] 13.9 % 11.6-14.6 [facility] Immature granulocytes/100 WBC (Bld) 0.400 % 0.0-0.9 [facility] Comment on above: IG% - Immature Granu locytes (promyelocytes, myelocytes and metamyelocytes) > 1% indicates that a LEFT SHIFT is Present. MCH (RBC) [Entitic mass] 29.3 pg 27.0-32.0 [facility] Nucleated RBC/100 WBC (Bld) [Ratio] 0 % 0-5 [facility] MCHC Auto (RBC) [Mass/Vol]Or dered By: Dr. Springer on 12-16-2022 MCHC (RBC) [Mass/Vol] 31.5 g/dL 32-36 [facility] Platelets bldOrdered By: Dr. Springer on 12-16-2022 Platelets (Bld) [#/Vol] 193 10*3/uL 150-450 [facility] Absolute lymphocyte countOrd ered By: Dr. Springer on 11-19-2022 Lymphocytes Auto (Unsp spec) [#/Vol] 2.45 10*3/uL 0.83-4.51 [facility] Basophil percentageOrdered B y: Dr. Springer on 11-19-2022 Basophils/100 WBC (Bld) 0.6 % 0-1 [facility] Eosinophils/100 WBC (Bld) 0.2 % 0-5 [facility] Neutrophils (Bld) [#/Vol] 5.0 10*3/uL 2.0-7.7 [facility] Neutrophils/100 WBC (Bld) 61.5 % 47-70 [facility] WBC (Bld) [#/Vol] 8.2 10*3/uL 4.4-11.0 [facility] Blood erythrocytes count (nu mber/volume)Ordered By: Dr. Springer on 11-19-2022 RBC (Bld) [#/Vol] 4.95 10*6/uL 4.2-5.4 [facility] Blood hemoglobin measurement (mass/volume)Ordered By: Dr. Springer on 11-19-2022 Hemoglobin (Bld) [Mass/Vol] 14.4 g/dL 12.0-15.0 [facility] Blood lymphocytes/100 leukoc ytesOrdered By: Dr. pSringer on 11-19-2022 Lymphocytes/100 WBC (Bld) 30.1 % 19-41 [facility] Blood monocytes/100 leukocyt esOrdered By: Dr. Springer on 11-19-2022 Monocytes/100 WBC (Bld) 7.4 % 0-10 [facility] Blood platelet mean volumeOr dered By: Dr. Springer on 11-19-2022 Platelet mean volume (Bld) [Entitic vol] 9.8 fL 6.2-12.0 [facility] Determination of erythrocyte mean corpuscular volume (MCV)Ordered By: Dr. Springer on 11-19-2022 MCV (RBC) [Entitic vol] 91.9 fL 81-99 [facility] Hematocrit Auto (Bld) [Volum e fraction]Ordered By: Dr. Springer on 11-19-2022 Hematocrit (Bld) [Volume fraction] 45.5 % 37-47 [facility] - Hematology and Cell countsOrdered By: Dr. Springer on 11-19-2022 Erythrocyte distribution width (RBC) [Entitic vol] 45.9 fL 35.1-43.9 [facility] Erythrocyte distribution width (RBC) [Ratio] 13.7 % 11.6-14.6 [facility] Immature granulocytes/100 WBC (Bld) 0.200 % 0.0-0.9 [facility] Comment on above: IG% - Immature Granu locytes (promyelocytes, myelocytes and metamyelocytes) > 1% indicates that a LEFT SHIFT is Present. MCH (RBC) [Entitic mass] 29.1 pg 27.0-32.0 [facility] Nucleated RBC/100 WBC (Bld) [Ratio] 0 % 0-5 [facility] MCHC Auto (RBC) [Mass/Vol]Or dered By: Dr. Springer on 11-19-2022 MCHC (RBC) [Mass/Vol] 31.6 g/dL 32-36 [facility] Platelets bldOrdered By: Dr. Springer on 11-19-2022 Platelets (Bld) [#/Vol] 198 10*3/uL 150-450 [facility] Absolute lymphocyte countOrd ered By: Dr. Springer on 10-17-2022 Lymphocytes Auto (Unsp spec) [#/Vol] 2.70 10*3/uL 0.83-4.51 [facility] Basophil percentageOrdered B y: Dr. Springer on 10-17-2022 Basophils/100 WBC (Bld) 0.7 % 0-1 [facility] Eosinophils/100 WBC (Bld) 0.2 % 0-5 [facility] Neutrophils (Bld) [#/Vol] 5.4 10*3/uL 2.0-7.7 [facility] Neutrophils/100 WBC (Bld) 60.7 % 47-70 [facility] WBC (Bld) [#/Vol] 8.8 10*3/uL 4.4-11.0 [facility] Blood erythrocytes count (nu mber/volume)Ordered By: Dr. Springer on 10-17-2022 RBC (Bld) [#/Vol] 5.13 10*6/uL 4.2-5.4 [facility] Blood hemoglobin measurement (mass/volume)Ordered By: Dr. Springer on 10-17-2022 Hemoglobin (Bld) [Mass/Vol] 14.9 g/dL 12.0-15.0 [facility] Blood lymphocytes/100 leukoc ytesOrdered By: Dr. Springer on 10-17-2022 Lymphocytes/100 WBC (Bld) 30.6 % 19-41 [facility] Blood monocytes/100 leukocyt esOrdered By: Dr. Springer on 10-17-2022 Monocytes/100 WBC (Bld) 7.5 % 0-10 [facility] Blood platelet mean volumeOr dered By: Dr. Springer on 10-17-2022 Platelet mean volume (Bld) [Entitic vol] 11.2 fL 6.2-12.0 [facility] Determination of erythrocyte mean corpuscular volume (MCV)Ordered By: Dr. Springer on 10-17-2022 MCV (RBC) [Entitic vol] 90.3 fL 81-99 [facility] Hematocrit Auto (Bld) [Volum e fraction]Ordered By: Dr. Springer on 10-17-2022 Hematocrit (Bld) [Volume fraction] 46.3 % 37-47 [facility] - Hematology and Cell countsOrdered By: Dr. Springer on 10-17-2022 Erythrocyte distribution width (RBC) [Entitic vol] 43.7 fL 35.1-43.9 [facility] Erythrocyte distribution width (RBC) [Ratio] 13.3 % 11.6-14.6 [facility] Immature granulocytes/100 WBC (Bld) 0.300 % 0.0-0.9 [facility] Comment on above: IG% - Immature Granu locytes (promyelocytes, myelocytes and metamyelocytes) > 1% indicates that a LEFT SHIFT is Present. MCH (RBC) [Entitic mass] 29.0 pg 27.0-32.0 [facility] Nucleated RBC/100 WBC (Bld) [Ratio] 0 % 0-5 [facility] MCHC Auto (RBC) [Mass/Vol]Or dered By: Dr. Springer on 10-17-2022 MCHC (RBC) [Mass/Vol] 32.2 g/dL 32-36 [facility] Platelets bldOrdered By: Dr. Springer on 10-17-2022 Platelets (Bld) [#/Vol] 199 10*3/uL 150-450 [facility] Absolute lymphocyte countOrd ered By: Dr. Springer on 09-19-2022 Lymphocytes Auto (Unsp spec) [#/Vol] 2.26 10*3/uL 0.83-4.51 [facility] Basophil percentageOrdered B y: Dr. Springer on 09-19-2022 Basophils/100 WBC (Bld) 0.6 % 0-1 [facility] Eosinophils/100 WBC (Bld) 0.3 % 0-5 [facility] Neutrophils (Bld) [#/Vol] 3.7 10*3/uL 2.0-7.7 [facility] Neutrophils/100 WBC (Bld) 55.2 % 47-70 [facility] WBC (Bld) [#/Vol] 6.7 10*3/uL 4.4-11.0 [facility] Blood erythrocytes count (nu mber/volume)Ordered By: Dr. Springer on 09-19-2022 RBC (Bld) [#/Vol] 4.98 10*6/uL 4.2-5.4 [facility] Blood hemoglobin measurement (mass/volume)Ordered By: Dr. Springer on 09-19-2022 Hemoglobin (Bld) [Mass/Vol] 14.4 g/dL 12.0-15.0 [facility] Blood lymphocytes/100 leukoc ytesOrdered By: Dr. Springer on 09-19-2022 Lymphocytes/100 WBC (Bld) 33.9 % 19-41 [facility] Blood manual differential co mment interpretation (narrative result)Ordered By: Dr. Springer on 09-19-2022 Manual differential comment Diego (Bld) [Interp] SCANNED [facility] Blood monocytes/100 leukocyt esOrdered By: Dr. Springer on 09-19-2022 Monocytes/100 WBC (Bld) 9.7 % 0-10 [facility] Blood platelet mean volumeOr dered By: Dr. Springer on 09-19-2022 Platelet mean volume (Bld) [Entitic vol] 10.2 fL 6.2-12.0 [facility] Determination of erythrocyte mean corpuscular volume (MCV)Ordered By: Dr. Springer on 09-19-2022 MCV (RBC) [Entitic vol] 91.8 fL 81-99 [facility] Hematocrit Auto (Bld) [Volum e fraction]Ordered By: Dr. Springer on 09-19-2022 Hematocrit (Bld) [Volume fraction] 45.7 % 37-47 [facility] - Hematology and Cell countsOrdered By: Dr. Springer on 09-19-2022 Erythrocyte distribution width (RBC) [Entitic vol] 44.5 fL 35.1-43.9 [facility] Erythrocyte distribution width (RBC) [Ratio] 13.2 % 11.6-14.6 [facility] Immature granulocytes/100 WBC (Bld) 0.300 % 0.0-0.9 [facility] Comment on above: IG% - Immature Granu locytes (promyelocytes, myelocytes and metamyelocytes) > 1% indicates that a LEFT SHIFT is Present. MCH (RBC) [Entitic mass] 28.9 pg 27.0-32.0 [facility] Nucleated RBC/100 WBC (Bld) [Ratio] 0 % 0-5 [facility] MCHC Auto (RBC) [Mass/Vol]Or dered By: Dr. Springer on 09-19-2022 MCHC (RBC) [Mass/Vol] 31.5 g/dL 32-36 [facility] No Panel InformationOrdered By: Dr. Springer on 09-19-2022 Atypical Lymphocytes 1+ % [facility] Platelets bldOrdered By: Dr. Springer on 09-19-2022 Platelets (Bld) [#/Vol] 198 10*3/uL 150-450 [facility] Absolute lymphocyte countOrd ered By: Dr. Springer on 08-15-2022 Lymphocytes Auto (Unsp spec) [#/Vol] 2.32 10*3/uL 0.83-4.51 [facility] Basophil percentageOrdered B y: Dr. Springer on 08-15-2022 Basophils/100 WBC (Bld) 0.6 % 0-1 [facility] Eosinophils/100 WBC (Bld) 0.3 % 0-5 [facility] Neutrophils (Bld) [#/Vol] 3.8 10*3/uL 2.0-7.7 [facility] Neutrophils/100 WBC (Bld) 57.5 % 47-70 [facility] WBC (Bld) [#/Vol] 6.7 10*3/uL 4.4-11.0 [facility] Blood erythrocytes count (nu mber/volume)Ordered By: Dr. Springer on 08-15-2022 RBC (Bld) [#/Vol] 4.65 10*6/uL 4.2-5.4 [facility] Blood hemoglobin measurement (mass/volume)Ordered By: Dr. Springer on 08-15-2022 Hemoglobin (Bld) [Mass/Vol] 14.2 g/dL 12.0-15.0 [facility] Blood lymphocytes/100 leukoc ytesOrdered By: Dr. Springer on 08-15-2022 Lymphocytes/100 WBC (Bld) 34.9 % 19-41 [facility] Blood monocytes/100 leukocyt esOrdered By: Dr. Springer on 08-15-2022 Monocytes/100 WBC (Bld) 6.5 % 0-10 [facility] Blood platelet mean volumeOr dered By: Dr. Sprinegr on 08-15-2022 Platelet mean volume (Bld) [Entitic vol] 10.1 fL 6.2-12.0 [facility] Blood platelet morphology de termination (nominal result)Ordered By: Dr. Springer on 08-15-2022 Platelet morphology finding Nom (Bld) LARGE [facility] Determination of erythrocyte mean corpuscular volume (MCV)Ordered By: Dr. Springer on 08-15-2022 MCV (RBC) [Entitic vol] 92.0 fL 81-99 [facility] Hematocrit Auto (Bld) [Volum e fraction]Ordered By: Dr. Springer on 08-15-2022 Hematocrit (Bld) [Volume fraction] 42.8 % 37-47 [facility] - Hematology and Cell countsOrdered By: Dr. Springer on 08-15-2022 Erythrocyte distribution width (RBC) [Entitic vol] 45.7 fL 35.1-43.9 [facility] Erythrocyte distribution width (RBC) [Ratio] 13.6 % 11.6-14.6 [facility] Immature granulocytes/100 WBC (Bld) 0.200 % 0.0-0.9 [facility] Comment on above: IG% - Immature Granu locytes (promyelocytes, myelocytes and metamyelocytes) > 1% indicates that a LEFT SHIFT is Present. MCH (RBC) [Entitic mass] 30.5 pg 27.0-32.0 [facility] Nucleated RBC/100 WBC (Bld) [Ratio] 0 % 0-5 [facility] MCHC Auto (RBC) [Mass/Vol]Or dered By: Dr. Springer on 08-15-2022 MCHC (RBC) [Mass/Vol] 33.2 g/dL 32-36 [facility] No Panel InformationOrdered By: Dr. Springer on 08-15-2022 Reactive Lymphocytes RARE [facility] Platelets bldOrdered By: Dr. Springer on 08-15-2022 Platelets (Bld) [#/Vol] 185 10*3/uL 150-450 [facility] Absolute lymphocyte countOrd ered By: Dr. Springer on 07-23-2022 Lymphocytes Auto (Unsp spec) [#/Vol] 2.25 10*3/uL 0.83-4.51 [facility] Basophil percentageOrdered B y: Dr. Springer on 07-23-2022 Basophils/100 WBC (Bld) 0.5 % 0-1 [facility] Eosinophils/100 WBC (Bld) 0.1 % 0-5 [facility] Neutrophils (Bld) [#/Vol] 4.6 10*3/uL 2.0-7.7 [facility] Neutrophils/100 WBC (Bld) 62.0 % 47-70 [facility] WBC (Bld) [#/Vol] 7.4 10*3/uL 4.4-11.0 [facility] Blood erythrocytes count (nu mber/volume)Ordered By: Dr. Springer on 07-23-2022 RBC (Bld) [#/Vol] 4.63 10*6/uL 4.2-5.4 [facility] Blood hemoglobin measurement (mass/volume)Ordered By: Dr. Springer on 07-23-2022 Hemoglobin (Bld) [Mass/Vol] 13.8 g/dL 12.0-15.0 [facility] Blood lymphocytes/100 leukoc ytesOrdered By: Dr. Springer on 07-23-2022 Lymphocytes/100 WBC (Bld) 30.5 % 19-41 [facility] Blood monocytes/100 leukocyt esOrdered By: Dr. Springer on 07-23-2022 Monocytes/100 WBC (Bld) 6.6 % 0-10 [facility] Blood platelet adequacy dete ction by light microscopyOrdered By: Dr. Springer on 07-23-2022 Platelets LM Ql (Bld) ADEQUATE ADEQ [facility] Blood platelet mean volumeOr dered By: Dr. Springer on 07-23-2022 Platelet mean volume (Bld) [Entitic vol] 10.0 fL 6.2-12.0 [facility] Determination of erythrocyte mean corpuscular volume (MCV)Ordered By: Dr. Springer on 07-23-2022 MCV (RBC) [Entitic vol] 92.7 fL 81-99 [facility] Hematocrit Auto (Bld) [Volum e fraction]Ordered By: Dr. Springer on 07-23-2022 Hematocrit (Bld) [Volume fraction] 42.9 % 37-47 [facility] - Hematology and Cell countsOrdered By: Dr. Springer on 07-23-2022 Erythrocyte distribution width (RBC) [Entitic vol] 47.2 fL 35.1-43.9 [facility] Erythrocyte distribution width (RBC) [Ratio] 13.9 % 11.6-14.6 [facility] Immature granulocytes/100 WBC (Bld) 0.300 % 0.0-0.9 [facility] Comment on above: IG% - Immature Granu locytes (promyelocytes, myelocytes and metamyelocytes) > 1% indicates that a LEFT SHIFT is Present. MCH (RBC) [Entitic mass] 29.8 pg 27.0-32.0 [facility] Nucleated RBC/100 WBC (Bld) [Ratio] 0 % 0-5 [facility] MCHC Auto (RBC) [Mass/Vol]Or dered By: Dr. Springer on 07-23-2022 MCHC (RBC) [Mass/Vol] 32.2 g/dL 32-36 [facility] Platelets bldOrdered By: Dr. Springer on 07-23-2022 Platelets (Bld) [#/Vol] 210 10*3/uL 150-450 [facility] RBC morphologyOrdered By: Dr Meghan Springer on 07-23-2022 RBC morphology finding Nom (Bld) NORM C+C NORMAL NORM C&C [facility] Absolute lymphocyte counton 06-19-2022 Lymphocytes Auto (Unsp spec) [#/Vol] 2.95 10*3/uL 0.83-4.51 [facility] Work Phone: Basophil percentageon 2021 Basophils/100 WBC (Bld) 0.3 % 0-1 [facility] Work Phone: Eosinophils/100 WBC (Bld) 0.2 % 0-5 [facility] Work Phone: Neutrophils (Bld) [#/Vol] 5.4 10*3/uL 2.0-7.7 [facility] Work Phone: Neutrophils/100 WBC (Bld) 59.6 % 47-70 [facility] Work Phone: WBC (Bld) [#/Vol] 9.1 10*3/uL 4.4-11.0 [facility]: Blood erythrocytes count (nu mber/volume)on 06-19-2022 RBC (Bld) [#/Vol] 4.69 10*6/uL 4.2-5.4 [facility] Work Phone: Blood hemoglobin measurement (mass/volume)on 06-19-2022 Hemoglobin (Bld) [Mass/Vol] 13.8 g/dL 12.0-15.0 [facility] Work Phone: Blood lymphocytes/100 leukoc yteson 06-19-2022 Lymphocytes/100 WBC (Bld) 32.5 % 19-41 [facility] Work Phone: Blood monocytes/100 leukocyt eson 06-19-2022 Monocytes/100 WBC (Bld) 7.1 % 0-10 [facility] Work Phone: Blood platelet adequacy dete ction by light microscopyon 06-19-2022 Platelets LM Ql (Bld) [facility]QUATE ADEQ [facility]: Blood platelet mean volumeon 06-19-2022 Platelet mean volume (Bld) [Entitic vol] 10.0 fL 6.2-12.0 [facility] Work Phone: Determination of erythrocyte mean corpuscular volume (MCV)on 06-19-2022 MCV (RBC) [Entitic vol] 90.0 fL 81-99 [facility] Work Phone: Hematocrit Auto (Bld) [Volum e fraction]on 06-19-2022 Hematocrit (Bld) [Volume fraction] 42.2 % 37-47 [facility] Work Phone: Laboratory - Hematology and Cell countson 06-19-2022 Erythrocyte distribution width (RBC) [Entitic vol] 45.1 fL 35.1-43.9 [facility] Work Phone: Erythrocyte distribution width (RBC) [Ratio] 13.8 % 11.6-14.6 [facility] Work Phone: Immature granulocytes/100 WBC (Bld) 0.300 % 0.0-0.9 [facility] Work Phone: Comment on above: IG% - Immature Granu locytes (promyelocytes, myelocytes and metamyelocytes) > 1% indicates that a LEFT SHIFT is Present. MCH (RBC) [Entitic mass] 29.4 pg 27.0-32.0 [facility] Work Phone: Nucleated RBC/100 WBC (Bld) [Ratio] 0 % 0-5 [facility] Work Phone: MCHC Auto (RBC) [Mass/Vol]on 06-19-2022 MCHC (RBC) [Mass/Vol] 32.7 g/dL 32-36 [facility] Work Phone: No Panel Informationon 06-19 Atypical Lymphocytes 1+ % [facility] Work Phone: Platelets bldon 06-19-2022 Platelets (Bld) [#/Vol] 209 10*3/uL 150-450 [facility] Work Phone: RBC morphologyon 06-19-2022 RBC morphology finding Nom (Bld) NORM C+C NORMAL NORM C&C [facility] Work Phone: Absolute lymphocyte counton 06-05-2022 Lymphocytes Auto (Unsp spec) [#/Vol] 2.74 10*3/uL 0.83-4.51 [facility] Work Phone: Basophil percentageon 2021 Basophils/100 WBC (Bld) 0.5 % 0-1 [facility] Work Phone: Bilirubin [Mass/Vol] 0.20 mg/dL 0.20-1.00 [facility] Work Phone: Comment on above: For patients on eltr ombopag therapy, use of Dimension Ovalo TBIL is not recommended. Chloride [Moles/Vol] 106 mmol/L 98-107 [facility] Work Phone: [phone] Eosinophils/100 WBC (Bld) 0.1 % 0-5 [facility] Work Phone: Glucose [Mass/Vol] 206 mg/dL 74-106 [facility] Work Phone: Comment on above: Glucose result great er than or equal to 200 mg/dLsuggests DIABETES MELLITUS per A.D.A. criteria. Neutrophils (Bld) [#/Vol] 5.4 10*3/uL 2.0-7.7 [facility] Work Phone: [phone] Neutrophils/100 WBC (Bld) 61.0 % 47-70 [facility] Work Phone: Potassium [Moles/Vol] 4.3 mmol/L 3.5-5.1 [facility] Work Phone: Protein [Mass/Vol] 7.6 g/dL 6.4-8.2 [facility] Work Phone: Sodium [Moles/Vol] 139 mmol/L 136-145 [facility] Work Phone: WBC (Bld) [#/Vol] 8.9 10*3/uL 4.4-11.0 [facility] Work Phone: [phone] Basophil percentage 0 SEEN /hpf 0-5 [facility] Work Phone: Bilirubin Test strip Ql (U)o n 06-05-2022 Bilirubin Ql (U) Negative Negative [facility] Work Phone: Blood erythrocytes count (nu mber/volume)on 06-05-2022 RBC (Bld) [#/Vol] 4.70 10*6/uL 4.2-5.4 [facility] Work Phone: Blood hemoglobin measurement (mass/volume)on 06-05-2022 Hemoglobin (Bld) [Mass/Vol] 14.1 g/dL 12.0-15.0 [facility] Work Phone: Blood lymphocytes/100 leukoc yteson 06-05-2022 Lymphocytes/100 WBC (Bld) 30.9 % 19-41 [facility] Work Phone: Blood monocytes/100 leukocyt eson 06-05-2022 Monocytes/100 WBC (Bld) 7.0 % 0-10 [facility] Work Phone: Blood platelet mean volumeon 06-05-2022 Platelet mean volume (Bld) [Entitic vol] 9.7 fL 6.2-12.0 [facility] Work Phone: Determination of erythrocyte mean corpuscular volume (MCV)on 06-05-2022 MCV (RBC) [Entitic vol] 89.6 fL 81-99 [facility] Work Phone: Hematocrit Auto (Bld) [Volum e fraction]on 06-05-2022 Hematocrit (Bld) [Volume fraction] 42.1 % 37-47 [facility] Work Phone: Ketones Test strip Ql (U)on 06-05-2022 Ketones Ql (U) Negative Negative [facility] Work Phone: Laboratory - Chemistry and C hemistry - challengeon 06-05-2022 ALP [Catalytic activity/Vol] 162 U/L 45-117 [facility] Work Phone: ALT [Catalytic activity/Vol] 68 U/L 13-56 [facility] Work Phone: CO2 [Moles/Vol] 25.0 mmol/L 21.0-32.0 [facility] Work Phone: Globulin (S) [Mass/Vol] 3.9 g/dL 2.2-4.2 [facility] Work Phone: Urea nitrogen/Creatinine [Mass ratio] 22.3 mg/mg 10-20 [facility] Work Phone: Laboratory - Drug toxicology on 06-05-2022 Amphetamines Ql (U) Negative <1000 ng/mL [facility] Work Phone: Benzodiazepines Ql (U) Negative < 200 ng/mL [facility] Work Phone: Cannabinoids Screen Ql (U) Negative < 50 ng/mL [facility] Work Phone: Cocaine Ql (U) Negative < 300 ng/mL [facility] Work Phone: Opiates Ql (U) Negative < 300 ng/mL [facility] Work Phone: Laboratory - Hematology and Cell countson 06-05-2022 Erythrocyte distribution width (RBC) [Entitic vol] 46.8 fL 35.1-43.9 [facility] Work Phone: Erythrocyte distribution width (RBC) [Ratio] 14.2 % 11.6-14.6 [facility] Work Phone: Immature granulocytes/100 WBC (Bld) 0.500 % 0.0-0.9 [facility] Work Phone: Comment on above: IG% - Immature Granu locytes (promyelocytes, myelocytes and metamyelocytes) > 1% indicates that a LEFT SHIFT is Present. MCH (RBC) [Entitic mass] 30.0 pg 27.0-32.0 [facility] Work Phone: Nucleated RBC/100 WBC (Bld) [Ratio] 0 % 0-5 [facility] Work Phone: MCHC Auto (RBC) [Mass/Vol]on 06-05-2022 MCHC (RBC) [Mass/Vol] 33.5 g/dL 32-36 [facility] Work Phone: Mucus LM Ql (Urine sed)on Mucus Ql (Urine sed) 0 SEEN /hpf [facility] Work Phone: Nitrite Test strip Ql (U)on 06-05-2022 Nitrite Ql (U) Negative Negative [facility] Work Phone: No Panel Informationon 06-05 Estimated Creatinine Clearance Calc 64.27 ml/min [facility] Work Phone: Estimated GFR (MDRD) Amer 107 mL/min >60 [facility] Work Phone: Comment on above: GFR Calc Estimated GFR (MDRD) Non-Af Amer 89 mL/min >60 [facility] Work Phone: Comment on above: Non- GFR Calc Ethyl Alcohol Level < 3.0 mg/dL [facility] Work Phone: Comment on above: The serum:whole bloo d ethanol ratio is approximately 1.14and varies slightly with hematocrit. Medical Alcohol reference interval and critical value innon-tolerant individuals; 50 - 100 Impairment 100 Intoxication 100 - 250 Severe Poisoning 250 - 400 Deep/possible fatal coma Troponin I High Sensitivity < 3 pg/mL 3.0-54.0 [facility] Work Phone: Comment on above: Please Note: New Janeth t Units and Gender Specific Reference Ranges. For more information see Policy Stat Procedure Ovalo High Sensitivity Troponin (TNIH) and attachments. MDMA (Ecstasy) Screen Negative < 500 ng/mL [facility] Work Phone: Urine Barbiturates Screen Negative < 200 ng/mL [facility] Work Phone: Urine Drug Screen Comment [facility] Work Phone: Comment on above: CONFIRMATORY [...] Methadone Screen Negative < 300 ng/mL [facility] Work Phone: Platelets bldon 06-05-2022 Platelets (Bld) [#/Vol] 220 10*3/uL 150-450 [facility] Work Phone: Protein Test strip Ql (U)on 06-05-2022 Protein Ql (U) Negative Negative [facility] Work Phone: Serum or plasma albumin lawrence urement (mass/volume)on 06-05-2022 Albumin [Mass/Vol] 3.7 g/dL 3.2-5.0 [facility] Work Phone: Serum or plasma albumin/glob ulin mass ratioon 06-05-2022 Albumin/Globulin [Mass ratio] 0.9 {ratio} 0.9-2.4 [facility] Work Phone: Serum or plasma calcium lawrence urement (mass/volume)on 06-05-2022 Calcium [Mass/Vol] 9.2 mg/dL 8.5-10.1 [facility] Work Phone: Serum or plasma creatinine m easurement (mass/volume)on 06-05-2022 Creatinine [Mass/Vol] 0.72 mg/dL 0.55-1.02 [facility] Work Phone: Comment on above: The validity of the calculated GFR & GFRAA in patients over 70 years has not been determined. Clinical correlation is essential. Serum or plasma urea nitroge n measurement (mass/volume)on 06-05-2022 Urea nitrogen [Mass/Vol] 16 mg/dL 7-18 [facility] Work Phone: Squamous epithelial cells de tection in urine sediment by light microscopyon 06-05-2022 Epithelial cells.squamous LM Ql (Urine sed) 0 SEEN /hpf 5-10 [facility] Work Phone: Thin prep Papanicolaou smear with manual screeningon 06-05-2022 Thin prep Papanicolaou smear with manual screening 52 U/L 15-37 [facility] Work Phone: Thin prep Papanicolaou smear with manual screening 8 5-15 [facility] Work Phone: Urine blood detectionon 05-14 RBC Ql (U) Negative Negative [facility] Work Phone: RBC Ql (U) 0 SEEN /hpf 0-5 [facility] Work Phone: Urine clarityon 06-05-2022 Clarity (U) Clear Clear [facility] Work Phone: Urine color determinationon 06-05-2022 Color (U) Straw Yellow [facility] Work Phone: Urine glucose detectionon Glucose Ql (U) 1000 mg/dl Normal [facility] Work Phone: Urine leukocyte esterase det ection by dipstickon 06-05-2022 Leukocyte esterase Test strip Ql (U) Negative Negative [facility] Work Phone: Urine pHon 06-05-2022 pH (U) 6.0 [pH] 5.0 - 8.0 [facility] Work Phone: Urine phencyclidine (PCP) de tectionon 06-05-2022 Phencyclidine Ql (U) Negative < 25 ng/mL [facility] Work Phone: Urine sediment bacteria coun t by microscopy (number/high power field)on 06-05-2022 Bacteria LM.HPF (Urine sed) [#/Area] 0 /[HPF] None Seen [facility] Work Phone: Urine specific gravity measu rementon 06-05-2022 Specific gravity (U) [Rel density] 1.010 1.002-1.030 [facility] Work Phone: Urobilinogen Auto test strip Ql (U)on 06-05-2022 Urobilinogen Ql (U) Normal mg/dl Normal [facility] Work Phone: Absolute lymphocyte counton 05-17-2022 Lymphocytes Auto (Unsp spec) [#/Vol] 2.96 10*3/uL 0.83-4.51 [facility] Work Phone: Basophil percentageon 2021 Basophils/100 WBC (Bld) 0.5 % 0-1 [facility] Work Phone: Eosinophils/100 WBC (Bld) 0.0 % 0-5 [facility] Work Phone: Neutrophils (Bld) [#/Vol] 5.6 10*3/uL 2.0-7.7 [facility] Work Phone: [phone] Neutrophils/100 WBC (Bld) 59.7 % 47-70 [facility] Work Phone: [phone] WBC (Bld) [#/Vol] 9.4 10*3/uL 4.4-11.0 [facility] Work Phone: [phone] Blood erythrocytes count (nu mber/volume)on 05-17-2022 RBC (Bld) [#/Vol] 4.82 10*6/uL 4.2-5.4 [facility] Work Phone: [phone] Blood hemoglobin measurement (mass/volume)on 05-17-2022 Hemoglobin (Bld) [Mass/Vol] 14.1 g/dL 12.0-15.0 [facility] Work Phone: Blood lymphocytes/100 leukoc yteson 05-17-2022 Lymphocytes/100 WBC (Bld) 31.5 % 19-41 [facility] Work Phone: Blood monocytes/100 leukocyt eson 05-17-2022 Monocytes/100 WBC (Bld) 7.8 % 0-10 [facility] Work Phone: Blood platelet mean volumeon 05-17-2022 Platelet mean volume (Bld) [Entitic vol] 10.6 fL 6.2-12.0 [facility] Work Phone: Determination of erythrocyte mean corpuscular volume (MCV)on 05-17-2022 MCV (RBC) [Entitic vol] 90.7 fL 81-99 [facility] Work Phone: Hematocrit Auto (Bld) [Volum e fraction]on 05-17-2022 Hematocrit (Bld) [Volume fraction] 43.7 % 37-47 [facility] Work Phone: Laboratory - Hematology and Cell countson 05-17-2022 Erythrocyte distribution width (RBC) [Entitic vol] 45.5 fL 35.1-43.9 [facility] Work Phone: Erythrocyte distribution width (RBC) [Ratio] 13.9 % 11.6-14.6 [facility] Work Phone: Immature granulocytes/100 WBC (Bld) 0.500 % 0.0-0.9 [facility] Work Phone: Comment on above: IG% - Immature Granu locytes (promyelocytes, myelocytes and metamyelocytes) > 1% indicates that a LEFT SHIFT is Present. MCH (RBC) [Entitic mass] 29.3 pg 27.0-32.0 [facility] Work Phone: Nucleated RBC/100 WBC (Bld) [Ratio] 0 % 0-5 [facility] Work Phone: MCHC Auto (RBC) [Mass/Vol]on 05-17-2022 MCHC (RBC) [Mass/Vol] 32.3 g/dL 32-36 [facility] Work Phone: No Panel Informationon 05-17 Reactive Lymphocytes RARE [facility] Work Phone: Platelets bldon 05-17-2022 Platelets (Bld) [#/Vol] 189 10*3/uL 150-450 [facility] Work Phone: Absolute lymphocyte counton 04-17-2022 Lymphocytes Auto (Unsp spec) [#/Vol] 2.37 10*3/uL 0.83-4.51 [facility] Work Phone: Basophil percentageon 2021 Basophils/100 WBC (Bld) 0.3 % 0-1 [facility] Work Phone: Eosinophils/100 WBC (Bld) 0.0 % 0-5 [facility] Work Phone: Neutrophils (Bld) [#/Vol] 7.5 10*3/uL 2.0-7.7 [facility] Work Phone: Neutrophils/100 WBC (Bld) 71.4 % 47-70 [facility] Work Phone: WBC (Bld) [#/Vol] 10.5 10*3/uL 4.4-11.0 [facility] Work Phone: Blood erythrocytes count (nu mber/volume)on 04-17-2022 RBC (Bld) [#/Vol] 5.00 10*6/uL 4.2-5.4 [facility] Work Phone: Blood hemoglobin measurement (mass/volume)on 04-17-2022 Hemoglobin (Bld) [Mass/Vol] 14.5 g/dL 12.0-15.0 [facility] Work Phone: [phone] Blood lymphocytes/100 leukoc yteson 04-17-2022 Lymphocytes/100 WBC (Bld) 22.6 % 19-41 [facility] Work Phone: Blood monocytes/100 leukocyt eson 04-17-2022 Monocytes/100 WBC (Bld) 5.3 % 0-10 [facility] Work Phone: Blood platelet mean volumeon 04-17-2022 Platelet mean volume (Bld) [Entitic vol] 11.6 fL 6.2-12.0 [facility] Work Phone: Determination of erythrocyte mean corpuscular volume (MCV)on 04-17-2022 MCV (RBC) [Entitic vol] 88.4 fL 81-99 [facility] Work Phone: Hematocrit Auto (Bld) [Volum e fraction]on 04-17-2022 Hematocrit (Bld) [Volume fraction] 44.2 % 37-47 [facility] Work Phone: Laboratory - Hematology and Cell countson 04-17-2022 Erythrocyte distribution width (RBC) [Entitic vol] 43.8 fL 35.1-43.9 [facility] Work Phone: Erythrocyte distribution width (RBC) [Ratio] 13.5 % 11.6-14.6 [facility] Work Phone: Immature granulocytes/100 WBC (Bld) 0.400 % 0.0-0.9 [facility] Work Phone: Comment on above: IG% - Immature Granu locytes (promyelocytes, myelocytes and metamyelocytes) > 1% indicates that a LEFT SHIFT is Present. MCH (RBC) [Entitic mass] 29.0 pg 27.0-32.0 [facility] Work Phone: Nucleated RBC/100 WBC (Bld) [Ratio] 0 % 0-5 [facility] Work Phone: MCHC Auto (RBC) [Mass/Vol]on 04-17-2022 MCHC (RBC) [Mass/Vol] 32.8 g/dL 32-36 [facility] Work Phone: Platelets bldon 04-17-2022 Platelets (Bld) [#/Vol] 166 10*3/uL 150-450 [facility] Work Phone: Glucose Glucometer (BldC) [M ass/Vol]on 04-10-2022 Glucose [Mass/Vol] 152 mg/dL 74-106 [facility] Work Phone: Comment on above: MANAGEMENT OF PATIEN T CARE PER NURSING PROTOCOL Absolute lymphocyte counton 04-09-2022 Lymphocytes Auto (Unsp spec) [#/Vol] 2.51 10*3/uL 0.83-4.51 [facility] Work Phone: Basophil percentageon 2021 Basophils/100 WBC (Bld) 0.5 % 0-1 [facility] Work Phone: Chloride [Moles/Vol] 105 mmol/L 98-107 [facility] Work Phone: Eosinophils/100 WBC (Bld) 0.1 % 0-5 [facility] Work Phone: Glucose [Mass/Vol] 151 mg/dL 74-106 [facility] Work Phone: Comment on above: Slight Lipemia, Resu lt may be falsely increased.Fasting Glucose result greater than or equal to 126 mg/dL suggests DIABETES MELLITUS per A.D.A. criteria. Neutrophils (Bld) [#/Vol] 6.1 10*3/uL 2.0-7.7 [facility] Work Phone: Neutrophils/100 WBC (Bld) 65.3 % 47-70 [facility] Work Phone: Potassium [Moles/Vol] 3.9 mmol/L 3.5-5.1 [facility] Work Phone: Comment on above: Slight Lipemia, Resu lt may be falsely increased. Sodium [Moles/Vol] 138 mmol/L 136-145 [facility] Work Phone: WBC (Bld) [#/Vol] 9.3 10*3/uL 4.4-11.0 [facility] Work Phone: Blood erythrocytes count (nu mber/volume)on 04-09-2022 RBC (Bld) [#/Vol] 4.91 10*6/uL 4.2-5.4 [facility] Work Phone: Blood hemoglobin measurement (mass/volume)on 04-09-2022 Hemoglobin (Bld) [Mass/Vol] 14.3 g/dL 12.0-15.0 [facility] Work Phone: Blood lymphocytes/100 leukoc yteson 04-09-2022 Lymphocytes/100 WBC (Bld) 27.0 % 19-41 [facility] Work Phone: Blood manual differential co mment interpretation (narrative result)on 04-09-2022 Manual differential comment Diego (Bld) [Interp] SCANNED [facility] Work Phone: Comment on above: AUTO DIFF OK Blood monocytes/100 leukocyt eson 04-09-2022 Monocytes/100 WBC (Bld) 6.9 % 0-10 [facility] Work Phone: Blood platelet mean volumeon 04-09-2022 Platelet mean volume (Bld) [Entitic vol] 10.2 fL 6.2-12.0 [facility] Work Phone: Determination of erythrocyte mean corpuscular volume (MCV)on 04-09-2022 MCV (RBC) [Entitic vol] 88.4 fL 81-99 [facility] Work Phone: Hematocrit Auto (Bld) [Volum e fraction]on 04-09-2022 Hematocrit (Bld) [Volume fraction] 43.4 % 37-47 [facility] Work Phone: Laboratory - Chemistry and C hemistry - challengeon 04-09-2022 CO2 [Moles/Vol] 25.0 mmol/L 21.0-32.0 [facility] Work Phone: Comment on above: Slight Lipemia, Resu lt may be falsely increased. Urea nitrogen/Creatinine [Mass ratio] 24.0 mg/mg 10-20 [facility] Work Phone: Laboratory - Drug toxicology on 04-09-2022 Amphetamines Ql (U) Negative <1000 ng/mL [facility] Work Phone: Benzodiazepines Ql (U) Negative < 200 ng/mL [facility] Work Phone: Cannabinoids Screen Ql (U) Negative < 50 ng/mL [facility] Work Phone: Cocaine Ql (U) Negative < 300 ng/mL [facility] Work Phone: Opiates Ql (U) Negative < 300 ng/mL [facility] Work Phone: Laboratory - Hematology and Cell countson 04-09-2022 Erythrocyte distribution width (RBC) [Entitic vol] 45.0 fL 35.1-43.9 [facility] Work Phone: Erythrocyte distribution width (RBC) [Ratio] 14.0 % 11.6-14.6 [facility] Work Phone: Immature granulocytes/100 WBC (Bld) 0.200 % 0.0-0.9 [facility] Work Phone: Comment on above: IG% - Immature Granu locytes (promyelocytes, myelocytes and metamyelocytes) > 1% indicates that a LEFT SHIFT is Present. MCH (RBC) [Entitic mass] 29.1 pg 27.0-32.0 [facility] Work Phone: Nucleated RBC/100 WBC (Bld) [Ratio] 0 % 0-5 [facility] Work Phone: MCHC Auto (RBC) [Mass/Vol]on 04-09-2022 MCHC (RBC) [Mass/Vol] 32.9 g/dL 32-36 [facility] Work Phone: No Panel Informationon 04-09 Estimated Creatinine Clearance Calc 58.57 ml/min [facility] Work Phone: Estimated GFR (MDRD) Amer 96 mL/min >60 [facility] Work Phone: Comment on above: GFR Calc Estimated GFR (MDRD) Non-Af Amer 79 mL/min >60 [facility] Work Phone: Comment on above: Non- GFR Calc Ethyl Alcohol Level 9.0 mg/dL [facility] Work Phone: Comment on above: The serum:whole bloo d ethanol ratio is approximately 1.14and varies slightly with hematocrit. Medical Alcohol reference interval and critical value innon-tolerant individuals; 50 - 100 Impairment 100 Intoxication 100 - 250 Severe Poisoning 250 - 400 Deep/possible fatal coma MDMA (Ecstasy) Screen Negative < 500 ng/mL [facility] Work Phone: Urine Barbiturates Screen Negative < 200 ng/mL [facility] Work Phone: Urine Drug Screen Comment [facility] Work Phone: Comment on above: CONFIRMATORY [...] Methadone Screen Negative < 300 ng/mL [facility] Work Phone: Platelets bldon 04-09-2022 Platelets (Bld) [#/Vol] 197 10*3/uL 150-450 [facility] Work Phone: Serum or plasma calcium lawrence urement (mass/volume)on 04-09-2022 Calcium [Mass/Vol] 9.2 mg/dL 8.5-10.1 [facility] Work Phone: Comment on above: Slight Lipemia, Resu lt may be falsely increased. Serum or plasma creatinine m easurement (mass/volume)on 04-09-2022 Creatinine [Mass/Vol] 0.79 mg/dL 0.55-1.02 [facility] Work Phone: Comment on above: Slight Lipemia, Resu lt may be falsely increased.The validity of the calculated GFR & GFRAA in patients over 70 years has not been determined. Clinical correlation is essential. Serum or plasma urea nitroge n measurement (mass/volume)on 04-09-2022 Urea nitrogen [Mass/Vol] 19 mg/dL 7-18 [facility] Work Phone: Comment on above: Slight Lipemia, Resu lt may be falsely increased. Thin prep Papanicolaou smear with manual screeningon 04-09-2022 Thin prep Papanicolaou smear with manual screening 8 5-15 [facility] Work Phone: Urine phencyclidine (PCP) de tectionon 04-09-2022 Phencyclidine Ql (U) Negative < 25 ng/mL [facility] Work Phone: Absolute lymphocyte counton 03-20-2022 Lymphocytes Auto (Unsp spec) [#/Vol] 2.53 10*3/uL 0.83-4.51 [facility] Work Phone: Basophil percentageon 2021 Basophils/100 WBC (Bld) 0.2 % 0-1 [facility] Work Phone: Eosinophils/100 WBC (Bld) 0.1 % 0-5 [facility] Work Phone: Neutrophils (Bld) [#/Vol] 5.7 10*3/uL 2.0-7.7 [facility] Work Phone: Neutrophils/100 WBC (Bld) 64.2 % 47-70 [facility] Work Phone: WBC (Bld) [#/Vol] 8.9 10*3/uL 4.4-11.0 [facility] Work Phone: [phone] Blood erythrocytes count (nu mber/volume)on 03-20-2022 RBC (Bld) [#/Vol] 4.80 10*6/uL 4.2-5.4 [facility] Work Phone: Blood hemoglobin measurement (mass/volume)on 03-20-2022 Hemoglobin (Bld) [Mass/Vol] 13.9 g/dL 12.0-15.0 [facility] Work Phone: Blood lymphocytes/100 leukoc yteson 03-20-2022 Lymphocytes/100 WBC (Bld) 28.3 % 19-41 [facility] Work Phone: Blood monocytes/100 leukocyt eson 03-20-2022 Monocytes/100 WBC (Bld) 7.0 % 0-10 [facility] Work Phone: Blood platelet adequacy dete ction by light microscopyon 03-20-2022 Platelets LM Ql (Bld) ADEQUATE ADEQ [facility] Work Phone: Blood platelet mean volumeon 03-20-2022 Platelet mean volume (Bld) [Entitic vol] 11.1 fL 6.2-12.0 [facility] Work Phone: Determination of erythrocyte mean corpuscular volume (MCV)on 03-20-2022 MCV (RBC) [Entitic vol] 89.8 fL 81-99 [facility] Work Phone: Hematocrit Auto (Bld) [Volum e fraction]on 03-20-2022 Hematocrit (Bld) [Volume fraction] 43.1 % 37-47 [facility] Work Phone: Laboratory - Hematology and Cell countson 03-20-2022 Erythrocyte distribution width (RBC) [Entitic vol] 44.5 fL 35.1-43.9 [facility] Work Phone: Erythrocyte distribution width (RBC) [Ratio] 13.7 % 11.6-14.6 [facility] Work Phone: Immature granulocytes/100 WBC (Bld) 0.200 % 0.0-0.9 [facility] Work Phone: Comment on above: IG% - Immature Granu locytes (promyelocytes, myelocytes and metamyelocytes) > 1% indicates that a LEFT SHIFT is Present. MCH (RBC) [Entitic mass] 29.0 pg 27.0-32.0 [facility] Work Phone: Nucleated RBC/100 WBC (Bld) [Ratio] 0 % 0-5 [facility] Work Phone: MCHC Auto (RBC) [Mass/Vol]on 03-20-2022 MCHC (RBC) [Mass/Vol] 32.3 g/dL 32-36 [facility] Work Phone: Platelets bldon 03-20-2022 Platelets (Bld) [#/Vol] 191 10*3/uL 150-450 [facility] Work Phone: RBC morphologyon 03-20-2022 RBC morphology finding Nom (Bld) NORM C+C NORMAL NORM C&C [facility] Work Phone: Absolute lymphocyte counton 02-13-2022 Lymphocytes Auto (Unsp spec) [#/Vol] 1.99 10*3/uL 0.83-4.51 [facility] Work Phone: Basophil percentageon 2021 Basophils/100 WBC (Bld) 0.5 % 0-1 [facility] Work Phone: Eosinophils/100 WBC (Bld) 0.1 % 0-5 [facility] Work Phone: Neutrophils (Bld) [#/Vol] 5.1 10*3/uL 2.0-7.7 [facility] Work Phone: Neutrophils/100 WBC (Bld) 66.1 % 47-70 [facility] Work Phone: WBC (Bld) [#/Vol] 7.7 10*3/uL 4.4-11.0 [facility] Work Phone: Blood erythrocytes count (nu mber/volume)on 02-13-2022 RBC (Bld) [#/Vol] 4.99 10*6/uL 4.2-5.4 [facility] Work Phone: Blood hemoglobin measurement (mass/volume)on 02-13-2022 Hemoglobin (Bld) [Mass/Vol] 14.4 g/dL 12.0-15.0 [facility] Work Phone: Blood lymphocytes/100 leukoc yteson 02-13-2022 Lymphocytes/100 WBC (Bld) 25.7 % 19-41 [facility] Work Phone: Blood monocytes/100 leukocyt eson 02-13-2022 Monocytes/100 WBC (Bld) 7.1 % 0-10 [facility] Work Phone: Blood platelet mean volumeon 02-13-2022 Platelet mean volume (Bld) [Entitic vol] 10.2 fL 6.2-12.0 [facility] Work Phone: Determination of erythrocyte mean corpuscular volume (MCV)on 02-13-2022 MCV (RBC) [Entitic vol] 90.6 fL 81-99 [facility] Work Phone: Hematocrit Auto (Bld) [Volum e fraction]on 02-13-2022 Hematocrit (Bld) [Volume fraction] 45.2 % 37-47 [facility] Work Phone: Laboratory - Hematology and Cell countson 02-13-2022 Erythrocyte distribution width (RBC) [Entitic vol] 45.9 fL 35.1-43.9 [facility] Work Phone: Erythrocyte distribution width (RBC) [Ratio] 13.9 % 11.6-14.6 [facility] Work Phone: Immature granulocytes/100 WBC (Bld) 0.500 % 0.0-0.9 [facility] Work Phone: Comment on above: IG% - Immature Granu locytes (promyelocytes, myelocytes and metamyelocytes) > 1% indicates that a LEFT SHIFT is Present. MCH (RBC) [Entitic mass] 28.9 pg 27.0-32.0 [facility] Work Phone: Nucleated RBC/100 WBC (Bld) [Ratio] 0 % 0-5 [facility] Work Phone: MCHC Auto (RBC) [Mass/Vol]on 02-13-2022 MCHC (RBC) [Mass/Vol] 31.9 g/dL 32-36 [facility] Work Phone: [phone] Platelets bldon 02-13-2022 Platelets (Bld) [#/Vol] 231 10*3/uL 150-450 [facility] Work Phone: Absolute lymphocyte counton 01-14-2022 Lymphocytes Auto (Unsp spec) [#/Vol] 3.17 10*3/uL 0.83-4.51 [facility] Work Phone: Basophil percentageon 2021 Basophils/100 WBC (Bld) 0.6 % 0-1 [facility] Work Phone: [phone] Eosinophils/100 WBC (Bld) 0.2 % 0-5 [facility] Work Phone: Neutrophils (Bld) [#/Vol] 6.3 10*3/uL 2.0-7.7 [facility] Work Phone: [phone] Neutrophils/100 WBC (Bld) 61.6 % 47-70 [facility] Work Phone: WBC (Bld) [#/Vol] 10.3 10*3/uL 4.4-11.0 [facility] Work Phone: Blood erythrocytes count (nu mber/volume)on 01-14-2022 RBC (Bld) [#/Vol] 5.25 10*6/uL 4.2-5.4 [facility] Work Phone: Blood hemoglobin measurement (mass/volume)on 01-14-2022 Hemoglobin (Bld) [Mass/Vol] 15.0 g/dL 12.0-15.0 [facility] Work Phone: Blood lymphocytes/100 leukoc yteson 01-14-2022 Lymphocytes/100 WBC (Bld) 30.9 % 19-41 [facility] Work Phone: Blood monocytes/100 leukocyt eson 01-14-2022 Monocytes/100 WBC (Bld) 6.3 % 0-10 [facility] Work Phone: Blood platelet mean volumeon 01-14-2022 Platelet mean volume (Bld) [Entitic vol] 10.7 fL 6.2-12.0 [facility] Work Phone: Determination of erythrocyte mean corpuscular volume (MCV)on 01-14-2022 MCV (RBC) [Entitic vol] 89.1 fL 81-99 [facility] Work Phone: Hematocrit Auto (Bld) [Volum e fraction]on 01-14-2022 Hematocrit (Bld) [Volume fraction] 46.8 % 37-47 [facility] Work Phone: Laboratory - Hematology and Cell countson 01-14-2022 Erythrocyte distribution width (RBC) [Entitic vol] 44.2 fL 35.1-43.9 [facility] Work Phone: Erythrocyte distribution width (RBC) [Ratio] 13.5 % 11.6-14.6 [facility] Work Phone: [phone] Immature granulocytes/100 WBC (Bld) 0.400 % 0.0-0.9 [facility] Work Phone: Comment on above: IG% - Immature Granu locytes (promyelocytes, myelocytes and metamyelocytes) > 1% indicates that a LEFT SHIFT is Present. MCH (RBC) [Entitic mass] 28.6 pg 27.0-32.0 [facility] Work Phone: Nucleated RBC/100 WBC (Bld) [Ratio] 0 % 0-5 [facility] Work Phone: MCHC Auto (RBC) [Mass/Vol]on 01-14-2022 MCHC (RBC) [Mass/Vol] 32.1 g/dL 32-36 [facility] Work Phone: No Panel Informationon 01-14 Reactive Lymphocytes RARE [facility] Work Phone: Platelets bldon 01-14-2022 Platelets (Bld) [#/Vol] 224 10*3/uL 150-450 [facility] Work Phone: Absolute lymphocyte counton 12-13-2021 Lymphocytes Auto (Unsp spec) [#/Vol] 2.05 10*3/uL 0.83-4.51 [facility] Work Phone: Basophil percentageon 2021 Basophils/100 WBC (Bld) 0.5 % 0-1 [facility] Work [phone] Eosinophils/100 WBC (Bld) 0.1 % 0-5 [facility] Work Phone: Neutrophils (Bld) [#/Vol] 4.8 10*3/uL 2.0-7.7 [facility] Work Phone: Neutrophils/100 WBC (Bld) 64.5 % 47-70 [facility] Work Phone: WBC (Bld) [#/Vol] 7.4 10*3/uL 4.4-11.0 [facility]: Blood erythrocytes count (nu mber/volume)on 12-13-2021 RBC (Bld) [#/Vol] 4.90 10*6/uL 4.2-5.4 [facility] Work Phone: Blood hemoglobin measurement (mass/volume)on 12-13-2021 Hemoglobin (Bld) [Mass/Vol] 14.6 g/dL 12.0-15.0 [facility] Work Phone: Blood lymphocytes/100 leukoc yteson 12-13-2021 Lymphocytes/100 WBC (Bld) 27.6 % 19-41 [facility] Work Phone: [phone] Blood monocytes/100 leukocyt eson 12-13-2021 Monocytes/100 WBC (Bld) 6.9 % 0-10 [facility] Work Phone: [phone] Blood platelet mean volumeon 12-13-2021 Platelet mean volume (Bld) [Entitic vol] 12.2 fL 6.2-12.0 [facility] Work Phone: Determination of erythrocyte mean corpuscular volume (MCV)on 12-13-2021 MCV (RBC) [Entitic vol] 91.0 fL 81-99 [facility] Work Phone: Hematocrit Auto (Bld) [Volum e fraction]on 12-13-2021 Hematocrit (Bld) [Volume fraction] 44.6 % 37-47 [facility] Work Phone: Laboratory - Hematology and Cell countson 12-13-2021 Erythrocyte distribution width (RBC) [Entitic vol] 45.6 fL 35.1-43.9 [facility] Work Phone: Erythrocyte distribution width (RBC) [Ratio] 13.6 % 11.6-14.6 [facility] Work Phone: Immature granulocytes/100 WBC (Bld) 0.400 % 0.0-0.9 [facility] Work Phone: Comment on above: IG% - Immature Granu locytes (promyelocytes, myelocytes and metamyelocytes) > 1% indicates that a LEFT SHIFT is Present. MCH (RBC) [Entitic mass] 29.8 pg 27.0-32.0 [facility] Work Phone: Nucleated RBC/100 WBC (Bld) [Ratio] 0 % 0-5 [facility] Work Phone: MCHC Auto (RBC) [Mass/Vol]on 12-13-2021 MCHC (RBC) [Mass/Vol] 32.7 g/dL 32-36 [facility] Work Phone: No Panel Informationon 12-13 Reactive Lymphocytes RARE [facility] Work Phone: Platelets bldon 12-13-2021 Platelets (Bld) [#/Vol] 193 10*3/uL 150-450 [facility] Work Phone: Absolute lymphocyte counton 11-20-2021 Lymphocytes Auto (Unsp spec) [#/Vol] 2.28 10*3/uL 0.83-4.51 [facility] Work Phone: Basophil percentageon 2021 Basophils/100 WBC (Bld) 0.7 % 0-1 [facility] Work Phone: Eosinophils/100 WBC (Bld) 0.2 % 0-5 [facility] Work Phone: Neutrophils (Bld) [#/Vol] 6.6 10*3/uL 2.0-7.7 [facility] Work Phone: Neutrophils/100 WBC (Bld) 69.0 % 47-70 [facility] Work Phone: WBC (Bld) [#/Vol] 9.6 10*3/uL 4.4-11.0 [facility] Work [facility]: Blood erythrocytes count (nu mber/volume)on 11-20-2021 RBC (Bld) [#/Vol] 5.04 10*6/uL 4.2-5.4 [facility] Work Phone: Blood hemoglobin measurement (mass/volume)on 11-20-2021 Hemoglobin (Bld) [Mass/Vol] 14.7 g/dL 12.0-15.0 [facility] Work Phone: Blood lymphocytes/100 leukoc yteson 11-20-2021 Lymphocytes/100 WBC (Bld) 23.7 % 19-41 [facility] Work Phone: Blood monocytes/100 leukocyt eson 11-20-2021 Monocytes/100 WBC (Bld) 6.1 % 0-10 [facility] Work Phone: Blood platelet mean volumeon 11-20-2021 Platelet mean volume (Bld) [Entitic vol] 9.9 fL 6.2-12.0 [facility] Work Phone: Determination of erythrocyte mean corpuscular volume (MCV)on 11-20-2021 MCV (RBC) [Entitic vol] 91.1 fL 81-99 [facility] Work Phone: Hematocrit Auto (Bld) [Volum e fraction]on 11-20-2021 Hematocrit (Bld) [Volume fraction] 45.9 % 37-47 [facility] Work Phone: Laboratory - Hematology and Cell countson 11-20-2021 Erythrocyte distribution width (RBC) [Entitic vol] 46.8 fL 35.1-43.9 [facility] Work Phone: Erythrocyte distribution width (RBC) [Ratio] 14.0 % 11.6-14.6 [facility] Work Phone: Immature granulocytes/100 WBC (Bld) 0.300 % 0.0-0.9 [facility] Work Phone: Comment on above: IG% - Immature Granu locytes (promyelocytes, myelocytes and metamyelocytes) > 1% indicates that a LEFT SHIFT is Present. MCH (RBC) [Entitic mass] 29.2 pg 27.0-32.0 [facility] Work Phone: Nucleated RBC/100 WBC (Bld) [Ratio] 0 % 0-5 [facility] Work Phone: MCHC Auto (RBC) [Mass/Vol]on 11-20-2021 MCHC (RBC) [Mass/Vol] 32.0 g/dL 32-36 [facility] Work Phone: No Panel Informationon 11-20 Reactive Lymphocytes RARE [facility] Work Phone: Platelets bldon 11-20-2021 Platelets (Bld) [#/Vol] 227 10*3/uL 150-450 [facility] Work Phone: Absolute lymphocyte counton 10-16-2021 Lymphocytes Auto (Unsp spec) [#/Vol] 2.02 10*3/uL 0.83-4.51 [facility] Work Phone: Basophil percentageon 2021 Ammonia (P) [Moles/Vol] 22.0 umol/L 11-32 [facility] Work Phone: Comment on above: Slight Lipemia, Resu lt may be falsely increased. Basophils/100 WBC (Bld) 0.6 % 0-1 [facility] Work Phone: Eosinophils/100 WBC (Bld) 0.1 % 0-5 [facility] Work Phone: Neutrophils (Bld) [#/Vol] 6.2 10*3/uL 2.0-7.7 [facility] Work Phone: Neutrophils/100 WBC (Bld) 70.6 % 47-70 [facility] Work Phone: WBC (Bld) [#/Vol] 8.8 10*3/uL 4.4-11.0 [facility] Work Phone: Blood erythrocytes count (nu mber/volume)on 10-16-2021 RBC (Bld) [#/Vol] 4.93 10*6/uL 4.2-5.4 [facility] Work Phone: Blood hemoglobin measurement (mass/volume)on 10-16-2021 Hemoglobin (Bld) [Mass/Vol] 14.2 g/dL 12.0-15.0 [facility] Work Phone: Blood lymphocytes/100 leukoc yteson 10-16-2021 Lymphocytes/100 WBC (Bld) 23.1 % 19-41 [facility] Work Phone: Blood monocytes/100 leukocyt eson 10-16-2021 Monocytes/100 WBC (Bld) 5.1 % 0-10 [facility] Work Phone: Blood platelet mean volumeon 10-16-2021 Platelet mean volume (Bld) [Entitic vol] 9.6 fL 6.2-12.0 [facility] Work Phone: Determination of erythrocyte mean corpuscular volume (MCV)on 10-16-2021 MCV (RBC) [Entitic vol] 89.7 fL 81-99 [facility] Work Phone: Hematocrit Auto (Bld) [Volum e fraction]on 10-16-2021 Hematocrit (Bld) [Volume fraction] 44.2 % 37-47 [facility] Work Phone: Laboratory - Hematology and Cell countson 10-16-2021 Erythrocyte distribution width (RBC) [Entitic vol] 44.6 fL 35.1-43.9 [facility] Work Phone: Erythrocyte distribution width (RBC) [Ratio] 13.7 % 11.6-14.6 [facility] Work Phone: Immature granulocytes/100 WBC (Bld) 0.500 % 0.0-0.9 [facility] Work Phone: Comment on above: IG% - Immature Granu locytes (promyelocytes, myelocytes and metamyelocytes) > 1% indicates that a LEFT SHIFT is Present. MCH (RBC) [Entitic mass] 28.8 pg 27.0-32.0 [facility] Work Phone: Nucleated RBC/100 WBC (Bld) [Ratio] 0 % 0-5 [facility] Work Phone: MCHC Auto (RBC) [Mass/Vol]on 10-16-2021 MCHC (RBC) [Mass/Vol] 32.1 g/dL 32-36 [facility] Work Phone: Platelets bldon 10-16-2021 Platelets (Bld) [#/Vol] 226 10*3/uL 150-450 [facility] Work Phone: Absolute lymphocyte counton 09-24-2021 Lymphocytes Auto (Unsp spec) [#/Vol] 2.52 10*3/uL 0.83-4.51 [facility] Work Phone: Basophil percentageon 2020 Eosinophils/100 WBC (Bld) 0.2 % 0-5 [facility] Work Phone: Neutrophils (Bld) [#/Vol] 6.5 10*3/uL 2.0-7.7 [facility] Work Phone: WBC (Bld) [#/Vol] 9.6 10*3/uL 4.4-11.0 [facility] Work Phone: Blood erythrocytes count (nu mber/volume)on 09-24-2021 RBC (Bld) [#/Vol] 4.89 10*6/uL 4.2-5.4 [facility] Work Phone: Blood hemoglobin measurement (mass/volume)on 09-24-2021 Hemoglobin (Bld) [Mass/Vol] 14.4 g/dL 12.0-15.0 [facility] Work Phone: Blood lymphocytes/100 leukoc yteson 09-24-2021 Lymphocytes/100 WBC (Bld) 26.2 % 19-41 [facility] Work Phone: Blood monocytes/100 leukocyt eson 09-24-2021 Monocytes/100 WBC (Bld) 4.7 % 0-10 [facility] Work Phone: Blood platelet mean volumeon 09-24-2021 Platelet mean volume (Bld) [Entitic vol] 12.3 fL 6.2-12.0 [facility] Work Phone: Determination of erythrocyte mean corpuscular volume (MCV)on 09-24-2021 MCV (RBC) [Entitic vol] 90.2 fL 81-99 [facility] Work Phone: Hematocrit Auto (Bld) [Volum e fraction]on 09-24-2021 Hematocrit (Bld) [Volume fraction] 44.1 % 37-47 [facility] Work Phone: Laboratory - Hematology and Cell countson 09-24-2021 Basophils/100 WBC (Unsp spec) 0.5 % 0-1 [facility] Work Phone: Erythrocyte distribution width (RBC) [Entitic vol] 46.2 fL 35.1-43.9 [facility] Work Phone: Erythrocyte distribution width (RBC) [Ratio] 14.0 % 11.6-14.6 [facility] Work Phone: Immature granulocytes/100 WBC (Bld) 0.500 % 0.0-0.9 [facility] Work Phone: Comment on above: IG% - Immature Granu locytes (promyelocytes, myelocytes and metamyelocytes) > 1% indicates that a LEFT SHIFT is Present. MCH (RBC) [Entitic mass] 29.4 pg 27.0-32.0 [facility] Work Phone: Neutrophils/100 WBC (Bld) 67.9 % 47-70 [facility] Work Phone: Nucleated RBC/100 WBC (Bld) [Ratio] 0 % 0-5 [facility] Work Phone: MCHC Auto (RBC) [Mass/Vol]on 09-24-2021 MCHC (RBC) [Mass/Vol] 32.7 g/dL 32-36 [facility] Work Phone: Platelets bldon 09-24-2021 Platelets (Bld) [#/Vol] 179 10*3/uL 150-450 [facility] Work Phone: CT BRAIN WO IVCONon 07-19-[address] BRAIN WO IVCON * * *Final Report* * * DATE OF EXAM: Jul 19 2021 4:54PM [facility] [id number] - CT BRAIN WO IVCON / [...] reduction techniques were required COMPARISON: None. RESULT: Chief Psychologist (topogram) images: No additional findings. Post-operative change: [...] warranted. 2. Chronic changes, as detailed above. Recruiter Specialist: MILDRED Transcribe Date/Time: Jul 19 2021 5:08P Dictated by : CHAPARRITA STRINGER MD This examination was interpreted and the report reviewed and electronically signed by: CHAPARRITA STRINGER MD on Jul 19 2021 5:14PM EST [id number] Normal [facility] XR Chest PA and Lateralon IMPRESSION: No acute radiographic abnormality. Recruiter Specialist: MILDRED Transcribe Date/Time: Jul 19 2021 3:33P [...] the thoracic spine. DIVISION OF RADIOLOGY [facility] * * *Final Report* * [...] spine. IMPRESSION IMPRESSION: No acute radiographic abnormality. Recruiter Specialist: MILDRED Transcribe Date/Time: Jul 19 2021 3:33P Dictated by : OMAR DAILEY MD This examination was interpreted and the report reviewed and electronically signed by: OMAR DAILEY MD on Jul 19 2021 3:33PM [facility] Radiology Study observation (narrative) [facility] XR Chest PA and LateralOrder ed By: [facility] Provider on 07-19-2021 [facility] XR Chest PA and Lateralon IMPRESSION: No new or acute radiographic abnormality. Mild areas of scarring or atelectasis are less prominent than previously. Recruiter Specialist: PSCB Transcribe Date/Time: Oct 18 2020 9:56A Dictated by : SEGUNDO MOORE MD This examination was interpreted and the report reviewed and electronically signed by: SEGUNDO MOORE MD on Oct 18 2020 9:59AM [facility] DIVISION OF RADIOLOGY * * *Final Report* [...] Normal. Other: - DIVISION OF RADIOLOGY Provider, [facility] - 10/18/2020 * * *Final Report* [...] or atelectasis are less prominent than previously. Recruiter Specialist: MILDRED Transcribe Date/Time: Oct 18 2020 9:56A Dictated by : SEGUNDO MOORE MD This examination was interpreted and the report reviewed and electronically signed by: SEGUNDO MOORE MD on Oct 18 2020 9:59AM EST [facility] Radiology Study observation (narrative) [facility] XR Chest PA and LateralOrder ed By: [facility] Provider on 10-18-2020 [facility] COVID-19 virus antigen assay SARS-CoV-2 (COVID-19) Ag IA.rapid Ql (Resp) [facility] Work Phone: Vital Signs Date Time Vital Sign Value Performing Clinician Facility 06-28-2025 13:51-0400 Body mass index (BMI) [Ratio] 35.33 kg/m2 Aleksandar Jones MD Work Phone: [facility] 06-28-2025 13:51-0400 Body temperature 96.01 [degF] Aleksandar Jones MD Work Phone: [facility] 06-28-2025 13:51-0400 Body weight 84.82 kg Aleksandar Jones MD Work Phone: [facility] 06-28-2025 13:51-0400 Diastolic blood pressure 68 mm[Hg] Aleksandar Jones MD Work Phone: [facility] 06-28-2025 13:51-0400 Heart rate 108 /min Aleksandar Jones MD Work Phone: [facility] 06-28-2025 13:51-0400 SaO2% (BldA) [Mass fraction] 93 % Aleksandar Jones MD Work Phone: [facility] 06-28-2025 13:51-0400 Systolic blood pressure 100 mm[Hg] Aleksandar Jones MD Work Phone: [facility] 06-23-2025 12:50-0400 Body temperature 97.1 [degF] Dr. Aleksandar Jones MD Work Phone: [facility] 06-23-2025 12:50-0400 Diastolic blood pressure 67 mm[Hg] Dr. Aleksandar Jones MD Work Phone: [facility] 06-23-2025 12:50-0400 Heart rate 90 /min Dr. Aleksandar Jones MD Work Phone: 0(406)136-730276 [place] [address] 06-23-2025 12:50-0400 Respiratory rate 16 /min Dr. Aleksandar Jones MD Work Phone: [facility] 06-23-2025 12:50-0400 SaO2% (BldA) [Mass fraction] 100 % Dr. Aleksandar Jones MD Work Phone: [facility] 06-23-2025 12:50-0400 Systolic blood pressure 122 mm[Hg] Dr. Aleksandar Jones MD Work Phone: [facility] 06-23-2025 09:36-0400 Body height 154.[address] Aleksandar Jones MD Work Phone: [facility] 06-23-2025 09:36-0400 Body mass index (BMI) [Ratio] 35.4 kg/m2 Dr. Aleksandar Jones MD Work Phone: [facility] 06-23-2025 09:36-0400 Body weight [address] Aleksandar Jones MD Work Phone: [facility] 04-04-2025 15:04-0400 Body mass index (BMI) [Ratio] 35.9 kg/m2 Fuentes Renee MD Work Phone: [facility] 04-04-2025 15:04-0400 Body weight 86.18 kg Fuentes Renee MD Work Phone: [facility] 04-04-2025 15:04-0400 Diastolic blood pressure 85 mm[Hg] Fuentes Renee MD Work Phone: [facility] 04-04-2025 15:04-0400 Heart rate 100 /min Fuentes Renee MD Work Phone: [facility] 04-04-2025 15:04-0400 SaO2% (BldA) [Mass fraction] 93 % Fuentes Renee MD Work Phone: [facility] 04-04-2025 15:04-0400 Systolic blood pressure 126 mm[Hg] Fuentes Renee MD Work Phone: [facility] 03-29-2025 08:59-0400 Body height 154.9 cm Aleksandar Jones MD Work Phone: [facility] 03-29-2025 08:59-0400 Body mass index (BMI) [Ratio] 35.45 kg/m2 Aleksandar Jones MD Work Phone: [facility] 03-29-2025 08:59-0400 Body temperature 97.2 [degF] Aleksandar Jones MD Work Phone: [facility] 03-29-2025 08:59-0400 Body weight 85.09 kg Aleksandar Jones MD Work Phone: [facility] 03-29-2025 08:59-0400 Diastolic blood pressure 72 mm[Hg] Aleksandar Jones MD Work Phone: [facility] 03-29-2025 08:59-0400 Heart rate 100 /min Aleksandar Jones MD Work Phone: [facility] 03-29-2025 08:59-0400 Respiratory rate 16 /min Aleksandar Jones MD Work Phone: [facility] 03-29-2025 08:59-0400 SaO2% (BldA) [Mass fraction] 91 % Aleksandar Jones MD Work Phone: [facility] Comment on above: nail [employer] 03-29-2025 08:59-0400 Systolic blood pressure 120 mm[Hg] Aleksandar Jones MD Work Phone: [facility] 01-12-2025 10:04-0400 Body mass index (BMI) [Ratio] 35.52 kg/m2 Aleksandar Jones MD Work Phone: [facility] 01-12-2025 10:04-0400 Body weight 85.28 kg Aleksandar Jones MD Work Phone: [facility] 01-12-2025 10:04-0400 Diastolic blood pressure 72 mm[Hg] Aleksandar Jones MD Work Phone: [facility] 01-12-2025 10:04-0400 Heart rate 92 /min Aleksandar Jones MD Work Phone: [facility] 01-12-2025 10:04-0400 SaO2% (BldA) [Mass fraction] 94 % Aleksandar Jones MD Work Phone: [facility] 01-12-2025 10:04-0400 Systolic blood pressure 122 mm[Hg] Aleksandar Jones MD Work Phone: [facility] 01-10-2025 22:11-0400 Body mass index (BMI) [Ratio] 36.6 kg/m2 Dr. Aleksandar Jones MD Work Phone: [facility] 12-28-2024 14:58-0400 Body height 154.9 cm Aleksandar Jones MD Work Phone: [facility] 12-28-2024 14:58-0400 Body mass index (BMI) [Ratio] 35.14 kg/m2 Aleksandar Jones MD Work Phone: [facility] 12-28-2024 14:58-0400 Body weight 84.37 kg Aleksandar Jones MD Work Phone: [facility] 12-28-2024 14:58-0400 Diastolic blood pressure 60 mm[Hg] Aleksandar Jones MD Work Phone: [facility] 12-28-2024 14:58-0400 Heart rate 113 /min Aleksandar Jones MD Work Phone: [facility] 12-28-2024 14:58-0400 SaO2% (BldA) [Mass fraction] 92 % Aleksandar Jones MD Work Phone: [facility] 12-28-2024 14:58-0400 Systolic blood pressure 126 mm[Hg] Aleksandar Jones MD Work Phone: [facility] 12-21-2024 12:29-0400 Body temperature 98.9 [degF] Dr. Aleksandar Jones MD Work Phone: [facility] 12-21-2024 12:29-0400 Diastolic blood pressure 99 mm[Hg] Dr. Aleksandar Jones MD Work Phone: 5(020)777-878076 [place] [address] 12-21-2024 12:29-0400 Heart rate 78 /min Dr. Aleksandar Jones MD Work Phone: 9(128)834-604081 [place] [address] 12-21-2024 12:29-0400 Respiratory rate 18 /min Dr. Aleksandar Jones MD Work Phone: [facility] 12-21-2024 12:29-0400 SaO2% (BldA) [Mass fraction] 99 % Dr. Aleksandar Jones MD Work Phone: 3(042)745-444376 [place] [address] 12-21-2024 12:29-0400 Systolic blood pressure 137 mm[Hg] Dr. Aleksandar Jones MD Work Phone: 7(486)662-454481 [place] [address] 12-21-2024 08:44-0400 Body height 154.[address] Aleksandar Jones MD Work Phone: [facility] 12-21-2024 08:44-0400 Body mass index (BMI) [Ratio] 35.7 kg/m2 Dr. Aleksandar Jones MD Work Phone: 6(352)179-516476 [place] [address] 12-21-2024 08:44-0400 Body weight 85.[address] Aleksandar Jones MD Work Phone: [facility] 12-11-2024 04:48-0500 Body mass index (BMI) [Ratio] 36.6 kg/m2 Dr. Aleksandar Jones MD Work Phone: [facility] 12-07-2024 09:58-0500 Diastolic blood pressure 72 mm[Hg] Radha Batista APRN.CNP Work Phone: [facility] 12-07-2024 09:58-0500 Heart rate 102 /min Radha Batista PLOW MECHANIC.PRINTING MECHANIST Work Phone: [facility] 12-07-2024 09:58-0500 Respiratory rate 18 /min Radha Batista PLOW MECHANIC.PRINTING MECHANIST Work Phone: [facility] 12-07-2024 09:58-0500 SaO2% (BldA) [Mass fraction] 92 % Radha Batista PLOW MECHANIC.PRINTING MECHANIST Work Phone: [facility] 12-07-2024 09:58-0500 Systolic blood pressure 108 mm[Hg] Radha Batista PLOW MECHANIC.PRINTING MECHANIST Work Phone: [facility] 11-13-2024 01:33-0500 Body mass index (BMI) [Ratio] 36.6 kg/m2 Dr. Aleksandar Jones MD Work Phone: 2(546)988-184381 [place] [address] 11-12-2024 13:40-0500 Body temperature 97.6 [degF] Dr. Aleksandar Jones MD Work Phone: 3(344)135-926181 [place] [address] 11-12-2024 13:40-0500 Diastolic blood pressure 75 mm[Hg] Dr. Aleksandar Jones MD Work Phone: 6(323)680-699081 [place] [address] 11-12-2024 13:40-0500 Heart rate 107 /min Dr. Aleksandar Jones MD Work Phone: 1(162)052-963981 [place] [address] 11-12-2024 13:40-0500 Respiratory rate 18 /min Dr. Aleksandar Jones MD Work Phone: 7(851)174-184681 [place] [address] 11-12-2024 13:40-0500 SaO2% (BldA) [Mass fraction] 93 % Dr. Aleksandar Jones MD Work Phone: 4(169)848-346581 [place] [address] 11-12-2024 13:40-0500 Systolic blood pressure 134 mm[Hg] Dr. Aleksandar Jones MD Work Phone: 2(776)270-608981 [place] [address] 11-12-2024 06:00-0500 Body mass index (BMI) [Ratio] 34.3 kg/m2 Dr. Aleksandar Jones MD Work Phone: 2(613)005-531081 [place] [address] 11-12-2024 06:00-0500 Body weight 82.[address] Aleksandar Jones MD Work Phone: [facility] 11-10-2024 07:56-0500 Inhaled oxygen flow rate 2 L/min Dr. Aleksandar Jones MD Work Phone: [facility] 11-09-2024 18:05-0500 Body temperature 99.19 [degF] Zaira Mancilla PLOW MECHANIC.PRINTING MECHANIST Work Phone: [facility] 11-09-2024 18:05-0500 Heart rate 115 /min Zaira Mancilla PLOW MECHANIC.PRINTING MECHANIST Work Phone: [facility] 11-09-2024 18:05-0500 Respiratory rate 32 /min Zaira Mancilla PLOW MECHANIC.PRINTING MECHANIST Work Phone: [facility] 11-09-2024 18:05-0500 SaO2% (BldA) [Mass fraction] 94 % Zaira Mancilla PLOW MECHANIC.PRINTING MECHANIST Work Phone: [facility] 11-09-2024 16:56-0500 Body mass index (BMI) [Ratio] 34.42 kg/m2 Zaira Mancilla PLOW MECHANIC.PRINTING MECHANIST Work Phone: [facility] 11-09-2024 16:56-0500 Body weight 84.3 kg Zaira Mancilla PLOW MECHANIC.PRINTING MECHANIST Work Phone: [facility] 11-09-2024 16:56-0500 Diastolic blood pressure 80 mm[Hg] Zaira Mancilla PLOW MECHANIC.PRINTING MECHANIST Work Phone: [facility] 11-09-2024 16:56-0500 Systolic blood pressure 122 mm[Hg] Zaira Mancilla PLOW MECHANIC.PRINTING MECHANIST Work Phone: [facility] 11-02-2024 13:59-0500 Diastolic blood pressure 76 mm[Hg] Radha Haagen PLOW MECHANIC.PRINTING MECHANIST Work Phone: [facility] 11-02-2024 13:59-0500 Heart rate 110 /min Radha Dacostaagen PLOW MECHANIC.PRINTING MECHANIST Work Phone: [facility] 11-02-2024 13:59-0500 Respiratory rate 16 /min Radha Batista PLOW MECHANIC.PRINTING MECHANIST Work Phone: [facility] 11-02-2024 13:59-0500 SaO2% (BldA) [Mass fraction] 93 % Radha Batista PLOW MECHANIC.PRINTING MECHANIST Work Phone: [facility] 11-02-2024 13:59-0500 Systolic blood pressure 128 mm[Hg] Radha Batista PLOW MECHANIC.PRINTING MECHANIST Work Phone: [facility] 10-14-2024 18:59-0500 Body temperature 98.3 [degF] Dr. Aleksandar Jones MD Work Phone: 8(262)521-241276 [place] [address] 10-14-2024 18:59-0500 Diastolic blood pressure 85 mm[Hg] Dr. Aleksandar Jones MD Work Phone: 4(103)387-943881 [place] [address] 10-14-2024 18:59-0500 Heart rate 105 /min Dr. Aleksandar Jones MD Work Phone: 4(793)599-216376 [place] [address] 10-14-2024 18:59-0500 Respiratory rate 18 /min Dr. Aleksandar Jones MD Work Phone: 9(896)574-244876 [place] [address] 10-14-2024 18:59-0500 SaO2% (BldA) [Mass fraction] 94 % Dr. Aleksandar Jones MD Work Phone: 5(356)860-555176 [place] [address] 10-14-2024 18:59-0500 Systolic blood pressure 134 mm[Hg] Dr. Aleksandar Jones MD Work Phone: 0(561)289-211276 [place] [address] 10-13-2024 04:23-0500 Body mass index (BMI) [Ratio] 36.6 kg/m2 Dr. Aleksandar Jones MD Work Phone: 3(950)579-285976 [place] [address] 09-28-2024 12:55-0500 Body mass index (BMI) [Ratio] 34.63 kg/m2 Radha Batista PLOW MECHANIC.PRINTING MECHANIST Work Phone: 4(006)958-466884 [place] [address] 09-28-2024 12:55-0500 Body weight 84.82 kg Radha Haagen PLOW MECHANIC.PRINTING MECHANIST Work Phone: [facility] 09-28-2024 12:55-0500 Diastolic blood pressure 80 mm[Hg] Radha Haagen PLOW MECHANIC.PRINTING MECHANIST Work Phone: [facility] 09-28-2024 12:55-0500 Heart rate 99 /min Radha Haagen PLOW MECHANIC.PRINTING MECHANIST Work Phone: [facility] 09-28-2024 12:55-0500 Respiratory rate 16 /min Radha Haagen PLOW MECHANIC.PRINTING MECHANIST Work Phone: [facility] 09-28-2024 12:55-0500 SaO2% (BldA) [Mass fraction] 97 % Radha Haagen PLOW MECHANIC.PRINTING MECHANIST Work Phone: [facility] 09-28-2024 12:55-0500 Systolic blood pressure 124 mm[Hg] Radha Haagen PLOW MECHANIC.PRINTING MECHANIST Work Phone: [facility] 09-20-2024 12:51-0500 Body mass index (BMI) [Ratio] 34.52 kg/m2 Fuentes Renee MD Work Phone: [facility] 09-20-2024 12:51-0500 Body weight 84.55 kg Fuentes Renee MD Work Phone: [facility] 09-20-2024 12:51-0500 Diastolic blood pressure 79 mm[Hg] Fuentes Renee MD Work Phone: [facility] 09-20-2024 12:51-0500 Heart rate 104 /min Fuentes Renee MD Work Phone: [facility] 09-20-2024 12:51-0500 SaO2% (BldA) [Mass fraction] 92 % Fuentes Renee MD Work Phone: [facility] 09-20-2024 12:51-0500 Systolic blood pressure 126 mm[Hg] Fuentes Renee MD Work Phone: [facility] 09-11-2024 23:34-0500 Body mass index (BMI) [Ratio] 36.6 kg/m2 Dr. Aleksandar Jones MD Work Phone: [facility] 09-08-2024 09:06-0500 Diastolic blood pressure 60 mm[Hg] Radha Haagen PLOW MECHANIC.PRINTING MECHANIST Work Phone: [facility] 09-08-2024 09:06-0500 Heart rate 94 /min Radha Haagen PLOW MECHANIC.PRINTING MECHANIST Work Phone: [facility] 09-08-2024 09:06-0500 Respiratory rate 16 /min Radha Haagen PLOW MECHANIC.PRINTING MECHANIST Work Phone: [facility] 09-08-2024 09:06-0500 SaO2% (BldA) [Mass fraction] 94 % Radha Haagen PLOW MECHANIC.PRINTING MECHANIST Work Phone: [facility] 09-08-2024 09:06-0500 Systolic blood pressure 122 mm[Hg] Radha Haagen PLOW MECHANIC.PRINTING MECHANIST Work Phone: [facility] 08-24-2024 15:05-0500 Body mass index (BMI) [Ratio] 34.82 kg/m2 Shelia Suppan PLOW MECHANIC.PRINTING MECHANIST Work Phone: [facility] 08-24-2024 15:05-0500 Body temperature 97.5 [degF] Shelia Suppan PLOW MECHANIC.PRINTING MECHANIST Work Phone: [facility] 08-24-2024 15:05-0500 Body weight 85.28 kg Shelia Suppan PLOW MECHANIC.PRINTING MECHANIST Work Phone: [facility] 08-24-2024 15:05-0500 Diastolic blood pressure 64 mm[Hg] Shelia Suppan PLOW MECHANIC.PRINTING MECHANIST Work Phone: [facility] 08-24-2024 15:05-0500 Heart rate 109 /min Shelia Suppan PLOW MECHANIC.PRINTING MECHANIST Work Phone: [facility] 08-24-2024 15:05-0500 Respiratory rate 24 /min Shelia Suppan PLOW MECHANIC.PRINTING MECHANIST Work Phone: [facility] 08-24-2024 15:05-0500 SaO2% (BldA) [Mass fraction] 94 % Shelia Salmon PLOW MECHANIC.PRINTING MECHANIST Work Phone: [facility] 08-24-2024 15:05-0500 Systolic blood pressure 132 mm[Hg] Shelia Salmon PLOW MECHANIC.PRINTING MECHANIST Work Phone: [facility] 08-12-2024 20:47-0400 Body mass index (BMI) [Ratio] 36.6 kg/m2 Dr. Aleksandar Jones MD Work Phone: [facility] 07-23-2024 08:43-0400 Body mass index (BMI) [Ratio] 34.3 kg/m2 Adriano Riri PLOW MECHANIC.PRINTING MECHANIST Work Phone: [facility] 07-23-2024 08:43-0400 Body temperature 97 [degF] Adriano Menezes PLOW MECHANIC.PRINTING MECHANIST Work Phone: [facility] 07-23-2024 08:43-0400 Body weight 84 kg Adrianogrover Menezes PLOW MECHANIC.PRINTING MECHANIST Work Phone: [facility] 07-23-2024 08:43-0400 Diastolic blood pressure 67 mm[Hg] Adriano Anabelllink PLOW MECHANIC.PRINTING MECHANIST Work Phone: [facility] 07-23-2024 08:43-0400 Heart rate 93 /min Adriano Menezes PLOW MECHANIC.PRINTING MECHANIST Work Phone: [facility] 07-23-2024 08:43-0400 Respiratory rate 22 /min Adriano Menezes PLOW MECHANIC.PRINTING MECHANIST Work Phone: [facility] 07-23-2024 08:43-0400 SaO2% (BldA) [Mass fraction] 96 % Adriano Menezes PLOW MECHANIC.PRINTING MECHANIST Work Phone: [facility] 07-23-2024 08:43-0400 Systolic blood pressure 100 mm[Hg] Adriano Menezes PLOW MECHANIC.PRINTING MECHANIST Work Phone: [facility] 07-06-2024 14:23-0400 Body mass index (BMI) [Ratio] 34.45 kg/m2 Radha Batista PLOW MECHANIC.PRINTING MECHANIST Work Phone: [facility] 07-06-2024 14:23-0400 Body weight 84.37 kg Radha Haagen PLOW MECHANIC.PRINTING MECHANIST Work Phone: [facility] 07-06-2024 14:23-0400 Diastolic blood pressure 82 mm[Hg] Radha Haagen PLOW MECHANIC.PRINTING MECHANIST Work Phone: [facility] 07-06-2024 14:23-0400 Heart rate 108 /min Radha Haagen PLOW MECHANIC.PRINTING MECHANIST Work Phone: [facility] 07-06-2024 14:23-0400 Respiratory rate 16 /min Radha Haagen PLOW MECHANIC.PRINTING MECHANIST Work Phone: [facility] 07-06-2024 14:23-0400 SaO2% (BldA) [Mass fraction] 91 % Radha Haagen PLOW MECHANIC.PRINTING MECHANIST Work Phone: [facility] 07-06-2024 14:23-0400 Systolic blood pressure 132 mm[Hg] Radha Haagen PLOW MECHANIC.PRINTING MECHANIST Work Phone: [facility] 04-14-2024 12:59-0400 Diastolic blood pressure 70 mm[Hg] Radha Haagen PLOW MECHANIC.PRINTING MECHANIST Work Phone: [facility] 04-14-2024 12:59-0400 Heart rate 110 /min Radha Haagen PLOW MECHANIC.PRINTING MECHANIST Work Phone: [facility] 04-14-2024 12:59-0400 Respiratory rate 16 /min Radha Haagen PLOW MECHANIC.PRINTING MECHANIST Work Phone: [facility] 04-14-2024 12:59-0400 SaO2% (BldA) [Mass fraction] 93 % Radha Haagen PLOW MECHANIC.PRINTING MECHANIST Work Phone: [facility] 04-14-2024 12:59-0400 Systolic blood pressure 118 mm[Hg] Radha Haagen PLOW MECHANIC.PRINTING MECHANIST Work Phone: [facility] 03-30-2024 08:52-0400 Body height 156.5 cm Radha Haagen PLOW MECHANIC.PRINTING MECHANIST Work Phone: [facility] 03-30-2024 08:52-0400 Body mass index (BMI) [Ratio] 33.71 kg/m2 Radha Haagen PLOW MECHANIC.PRINTING MECHANIST Work Phone: [facility] 03-30-2024 08:52-0400 Body weight 82.56 kg Radha Haagen PLOW MECHANIC.PRINTING MECHANIST Work Phone: [facility] 03-30-2024 08:52-0400 Diastolic blood pressure 72 mm[Hg] Radha Haagen PLOW MECHANIC.PRINTING MECHANIST Work Phone: [facility] 03-30-2024 08:52-0400 Heart rate 91 /min Radha Haagen PLOW MECHANIC.PRINTING MECHANIST Work Phone: [facility] 03-30-2024 08:52-0400 Respiratory rate 16 /min Radha Haagen PLOW MECHANIC.PRINTING MECHANIST Work Phone: [facility] 03-30-2024 08:52-0400 SaO2% (BldA) [Mass fraction] 96 % Radha Haagen PLOW MECHANIC.PRINTING MECHANIST Work Phone: [facility] 03-30-2024 08:52-0400 Systolic blood pressure 108 mm[Hg] Radha Haagen PLOW MECHANIC.PRINTING MECHANIST Work Phone: [facility] 03-19-2024 08:47-0400 Diastolic blood pressure 80 mm[Hg] Radha Haagen PLOW MECHANIC.PRINTING MECHANIST Work Phone: [facility] 03-19-2024 08:47-0400 Heart rate 98 /min Radha Haagen PLOW MECHANIC.PRINTING MECHANIST Work Phone: [facility] 03-19-2024 08:47-0400 Respiratory rate 16 /min Radha Haagen PLOW MECHANIC.PRINTING MECHANIST Work Phone: [facility] 03-19-2024 08:47-0400 SaO2% (BldA) [Mass fraction] 91 % Radha Haagen PLOW MECHANIC.PRINTING MECHANIST Work Phone: [facility] 03-19-2024 08:47-0400 Systolic blood pressure 126 mm[Hg] Radha Haagen PLOW MECHANIC.PRINTING MECHANIST Work Phone: [facility] 03-02-2024 08:50-0400 Body mass index (BMI) [Ratio] 34.01 kg/m2 Radha Haagen PLOW MECHANIC.PRINTING MECHANIST Work Phone: [facility] 03-02-2024 08:50-0400 Body weight 81.65 kg Radha Haagen PLOW MECHANIC.PRINTING MECHANIST Work Phone: [facility] 03-02-2024 08:50-0400 Diastolic blood pressure 70 mm[Hg] Radha Haagen PLOW MECHANIC.PRINTING MECHANIST Work Phone: [facility] 03-02-2024 08:50-0400 Heart rate 93 /min Radha Haagen PLOW MECHANIC.PRINTING MECHANIST Work Phone: [facility] 03-02-2024 08:50-0400 Respiratory rate 16 /min Radha Haagen PLOW MECHANIC.PRINTING MECHANIST Work Phone: [facility] 03-02-2024 08:50-0400 SaO2% (BldA) [Mass fraction] 92 % Radha Haagen PLOW MECHANIC.PRINTING MECHANIST Work Phone: [facility] 03-02-2024 08:50-0400 Systolic blood pressure 108 mm[Hg] Radha Haagen PLOW MECHANIC.PRINTING MECHANIST Work Phone: [facility] 02-05-2024 08:00-0400 Diastolic blood pressure 72 mm[Hg] Jaic Kashuba STOCKROOM KEEPER Work Phone: [facility] 02-05-2024 08:00-0400 Heart rate 95 /min Jaci Kashuba STOCKROOM KEEPER Work Phone: [facility] 02-05-2024 08:00-0400 SaO2% (BldA) [Mass fraction] 94 % Jaci Kashuba STOCKROOM KEEPER Work Phone: [facility] Comment on above: increased to 97 with instruction for vicente p breathing 02-05-2024 08:00-0400 Systolic blood pressure 113 mm[Hg] Jaci Kashuba STOCKROOM KEEPER Work Phone: [facility] 01-21-2024 11:00-0400 Diastolic blood pressure 78 mm[Hg] Long Golias PT Work Phone: [facility] 01-21-2024 11:00-0400 Heart rate 98 /min Long Golias PT Work Phone: [facility] 01-21-2024 11:00-0400 Systolic blood pressure 118 mm[Hg] Long Golias PT Work Phone: [facility] 01-13-2024 09:07-0400 Body weight 82.56 kg Radha Haagen PLOW MECHANIC.PRINTING MECHANIST Work Phone: [facility] 01-13-2024 09:07-0400 Diastolic blood pressure 80 mm[Hg] Radha Batista PLOW MECHANIC.PRINTING MECHANIST Work Phone: [facility] 01-13-2024 09:07-0400 Heart rate 89 /min Radha Dacostaagen PLOW MECHANIC.PRINTING MECHANIST Work Phone: [facility] 01-13-2024 09:07-0400 Respiratory rate 16 /min Radha Batista PLOW MECHANIC.PRINTING MECHANIST Work Phone: [facility] 01-13-2024 09:07-0400 SaO2% (BldA) [Mass fraction] 97 % Radha Batista PLOW MECHANIC.PRINTING MECHANIST Work Phone: [facility] 01-13-2024 09:07-0400 Systolic blood pressure 110 mm[Hg] Radha Batista PLOW MECHANIC.PRINTING MECHANIST Work Phone: [facility] 01-10-2024 22:32-0400 Body mass index (BMI) [Ratio] 36.6 kg/m2 [facility] 12-13-2023 23:59-0500 Body temperature 98 [degF] Dr. Aleksandar Jones Work Phone: [facility] 12-13-2023 23:59-0500 Diastolic blood pressure 68 mm[Hg] Dr. Aleksandar Jones Work Phone: [facility] 12-13-2023 23:59-0500 Heart rate 88 /min Dr. Aleksandar Jones Work Phone: [facility] 12-13-2023 23:59-0500 Respiratory rate 16 /min Dr. Aleksandar Jones Work Phone: [facility] 12-13-2023 23:59-0500 SaO2% (BldA) [Mass fraction] 97 % Dr. Aleksandar Jones Work Phone: [facility] 12-13-2023 23:59-0500 Systolic blood pressure 112 mm[Hg] Dr. Aleksandar Jones Work Phone: [facility] 12-13-2023 18:09-0500 Body height 154.[address] Aleksandar Jones Work Phone: [facility] 12-13-2023 18:09-0500 Body mass index (BMI) [Ratio] 33.4 kg/m2 Dr. Aleksandar Jones Work Phone: [facility] 12-13-2023 18:09-0500 Body weight 80.[address] Aleksandar Jones Work Phone: [facility] 12-11-2023 23:05-0500 Body mass index (BMI) [Ratio] 36.6 kg/m2 [facility] 11-12-2023 22:38-0500 Body mass index (BMI) [Ratio] 36.6 kg/m2 Dr. Aleksandar Jones Work Phone: [facility] 10-12-2023 20:50-0500 Body mass index (BMI) [Ratio] 36.6 kg/m2 Dr. Aleksandar Jones Work Phone: [facility] 09-22-2023 15:48-0500 Body weight 78.93 kg Fuentes Renee MD Work Phone: [facility] 09-22-2023 15:48-0500 Diastolic blood pressure 76 mm[Hg] Fuentes Renee MD Work Phone: [facility] 09-22-2023 15:48-0500 Heart rate 114 /min Fuentes Renee MD Work Phone: [facility] 09-22-2023 15:48-0500 SaO2% (BldA) [Mass fraction] 96 % Fuentes Renee MD Work Phone: [facility] 09-22-2023 15:48-0500 Systolic blood pressure 118 mm[Hg] Fuentes Renee MD Work Phone: [facility] 09-12-2023 03:19-0500 Body mass index (BMI) [Ratio] 36.6 kg/m2 Dr. Aleksandar Jones Work Phone: [facility] 08-29-2023 15:12-0500 Body height 154.9 cm Alma Rox PLOW MECHANIC.PRINTING MECHANIST Work Phone: [facility] 08-29-2023 15:12-0500 Body weight 78.93 kg Alma Waleska PLOW MECHANIC.PRINTING MECHANIST Work Phone: [facility] 08-29-2023 15:12-0500 Diastolic blood pressure 72 mm[Hg] Alma Rox PLOW MECHANIC.PRINTING MECHANIST Work Phone: [facility] 08-29-2023 15:12-0500 Systolic blood pressure 118 mm[Hg] Alma Rox PLOW MECHANIC.PRINTING MECHANIST Work Phone: [facility] 08-16-2023 13:15-0400 Body temperature 98 [degF] Dr. Aleksandar Jones Work Phone: [facility] 08-16-2023 13:15-0400 Diastolic blood pressure 73 mm[Hg] Dr. Aleksandar Jones Work Phone: [facility] 08-16-2023 13:15-0400 Heart rate 96 /min Dr. Aleksandar Jones Work Phone: [facility] 08-16-2023 13:15-0400 Respiratory rate 16 /min Dr. Aleksandar Jones Work Phone: [facility] 08-16-2023 13:15-0400 SaO2% (BldA) [Mass fraction] 94 % Dr. Aleksandar Jones Work Phone: [facility] 08-16-2023 13:15-0400 Systolic blood pressure 111 mm[Hg] Dr. Aleksandar Jones Work Phone: 9(694)198-144181 [place] [address] 08-16-2023 12:44-0400 Inhaled oxygen flow rate 0 L/min Dr. Aleksandar Jones Work Phone: 9(195)339-584581 [place] [address] 08-16-2023 04:16-0400 Body mass index (BMI) [Ratio] 31.6 kg/m2 Dr. Aleksandar Jones Work Phone: 0(866)350-357681 [place] [address] 08-16-2023 04:16-0400 Body weight [address] Aleksandar Jones Work Phone: 1(274)981-338681 [place] [address] 08-15-2023 12:03-0400 Body height 154.[address] Aleksandar Jones Work Phone: 8(325)749-011581 [place] [address] 08-14-2023 23:25-0400 Diastolic blood pressure 77 mm[Hg] Dr. Aleksandar Jones Work Phone: 9(290)847-503281 [place] [address] 08-14-2023 23:25-0400 Heart rate 97 /min Dr. Aleksandar Jones Work Phone: 8(000)761-242081 [place] [address] 08-14-2023 23:25-0400 Respiratory rate 26 /min Dr. Aleksandar Jones Work Phone: 9(513)545-646881 [place] [address] 08-14-2023 23:25-0400 SaO2% (BldA) [Mass fraction] 94 % Dr. Aleksandar Jones Work Phone: 0(826)259-958081 [place] [address] 08-14-2023 23:25-0400 Systolic blood pressure 110 mm[Hg] Dr. Aleksandar Jones Work Phone: 7(159)364-492581 [place] [address] 08-14-2023 22:19-0400 Inhaled oxygen flow rate 2 L/min Dr. Aleksandar Jones Work Phone: 7(207)466-728581 [place] [address] 08-14-2023 17:06-0400 Body temperature 97.4 [degF] Dr. Aleksandar Jones Work Phone: 0(880)917-788381 [place] [address] 08-14-2023 17:02-0400 Body height 154.[address] Aleksandar oJnes Work Phone: [facility] 08-14-2023 17:02-0400 Body mass index (BMI) [Ratio] 33.5 kg/m2 Dr. Aleksandar Jones Work Phone: [facility] 08-14-2023 17:02-0400 Body weight 80.[address] Aleksandar Jones Work Phone: [facility] 08-12-2023 22:56-0400 Body mass index (BMI) [Ratio] 36.6 kg/m2 Dr. Aleksandar Jones Work Phone: [facility] 07-13-2023 02:43-0400 Body mass index (BMI) [Ratio] 36.6 kg/m2 Dr. Aleksandar Jones Work Phone: [facility] 06-12-2023 22:53-0400 Body mass index (BMI) [Ratio] 36.6 kg/m2 [facility] 05-13-2023 00:41-0400 Body mass index (BMI) [Ratio] 36.6 kg/m2 [facility] 04-29-2023 14:31-0400 Body weight 78.02 kg Radha Batista PLOW MECHANIC.PRINTING MECHANIST Work Phone: [facility] 04-29-2023 14:31-0400 Diastolic blood pressure 82 mm[Hg] Radha Batista PLOW MECHANIC.PRINTING MECHANIST Work Phone: [facility] 04-29-2023 14:31-0400 Heart rate 109 /min Radha Batista PLOW MECHANIC.PRINTING MECHANIST Work Phone: [facility] 04-29-2023 14:31-0400 Respiratory rate 16 /min Radha Batista PLOW MECHANIC.PRINTING MECHANIST Work Phone: [facility] 04-29-2023 14:31-0400 SaO2% (BldA) [Mass fraction] 92 % Radha Batista PLOW MECHANIC.PRINTING MECHANIST Work Phone: [facility] 04-29-2023 14:31-0400 Systolic blood pressure 124 mm[Hg] Radha Batista PLOW MECHANIC.PRINTING MECHANIST Work Phone: [facility] 04-11-2023 22:19-0400 Body mass index (BMI) [Ratio] 36.6 kg/m2 [facility] 03-13-2023 09:37-0400 Body mass index (BMI) [Ratio] 36.6 kg/m2 [facility] 02-09-2023 01:19-0400 Body mass index (BMI) [Ratio] 36.6 kg/m2 [facility] 01-11-2023 00:24-0400 Body mass index (BMI) [Ratio] 36.6 kg/m2 [facility] 12-10-2022 22:30-0500 Body mass index (BMI) [Ratio] 36.6 kg/m2 [facility] 11-13-2022 08:16-0500 Body mass index (BMI) [Ratio] 36.6 kg/m2 [facility] 10-13-2022 03:52-0500 Body mass index (BMI) [Ratio] 36.6 kg/m2 [facility] 09-11-2022 23:10-0500 Body mass index (BMI) [Ratio] 36.6 kg/m2 [facility] 08-28-2022 13:53-0500 Body weight 83.01 kg Radha Batista APRN.PRINTING MECHANIST Work Phone: [facility] 08-28-2022 13:53-0500 Diastolic blood pressure 72 mm[Hg] Radha Batista APRN.PRINTING MECHANIST Work Phone: [facility] 08-28-2022 13:53-0500 Heart rate 98 /min Radha Batista APRN.PRINTING MECHANIST Work Phone: [facility] 08-28-2022 13:53-0500 Respiratory rate 18 /min Radha Batista APRN.PRINTING MECHANIST Work Phone: [facility] 08-28-2022 13:53-0500 SaO2% (BldA) [Mass fraction] 96 % Radha Batista APRN.PRINTING MECHANIST Work Phone: [facility] 08-28-2022 13:53-0500 Systolic blood pressure 124 mm[Hg] Radha Batista APRN.PRINTING MECHANIST Work Phone: [facility] 08-13-2022 10:20-0400 Body mass index (BMI) [Ratio] 36.6 kg/m2 [facility] 08-08-2022 13:42-0400 Body temperature 97.39 [degF] Zaira Mancilla PLOW MECHANIC.PRINTING MECHANIST Work Phone: [facility] 08-08-2022 13:42-0400 Body weight 82.83 kg Zaira Mancilla PLOW MECHANIC.PRINTING MECHANIST Work Phone: [facility] 08-08-2022 13:42-0400 Diastolic blood pressure 76 mm[Hg] Zaira Mancilla PLOW MECHANIC.PRINTING MECHANIST Work Phone: [facility] 08-08-2022 13:42-0400 Heart rate 108 /min Zaira Mancilla PLOW MECHANIC.PRINTING MECHANIST Work Phone: [facility] 08-08-2022 13:42-0400 Respiratory rate 16 /min Zaira Mancilla PLOW MECHANIC.PRINTING MECHANIST Work Phone: [facility] 08-08-2022 13:42-0400 SaO2% (BldA) [Mass fraction] 97 % Zaira Mancilla PLOW MECHANIC.PRINTING MECHANIST Work Phone: [facility] 08-08-2022 13:42-0400 Systolic blood pressure 130 mm[Hg] Zaira Mancilla PLOW MECHANIC.PRINTING MECHANIST Work Phone: [facility] 07-12-2022 21:34-0400 Body mass index (BMI) [Ratio] 36.6 kg/m2 [facility] 07-05-2022 13:00-0400 Body temperature 97 [degF] Zaira Mancilla PLOW MECHANIC.PRINTING MECHANIST Work Phone: [facility] 07-05-2022 13:00-0400 Body weight 83.19 kg Zaira Mancilla PLOW MECHANIC.PRINTING MECHANIST Work Phone: [facility] 07-05-2022 13:00-0400 Diastolic blood pressure 74 mm[Hg] Zaira Mancilla PLOW MECHANIC.PRINTING MECHANIST Work Phone: [facility] 07-05-2022 13:00-0400 Heart rate 112 /min Zaira Mancilla PLOW MECHANIC.PRINTING MECHANIST Work Phone: [facility] 07-05-2022 13:00-0400 Respiratory rate 18 /min Zaira Mancilla PLOW MECHANIC.PRINTING MECHANIST Work Phone: [facility] 07-05-2022 13:00-0400 SaO2% (BldA) [Mass fraction] 97 % Zaira Mancilla PLOW MECHANIC.PRINTING MECHANIST Work Phone: [facility] 07-05-2022 13:00-0400 Systolic blood pressure 122 mm[Hg] Zaira Mancilla PLOW MECHANIC.PRINTING MECHANIST Work Phone: [facility] 06-12-2022 23:03-0400 Body mass index (BMI) [Ratio] 36.6 kg/m2 [facility] Work Phone: 06-06-2022 05:56-0400 Diastolic blood pressure 57 mm[Hg] [facility] Work Phone: 06-06-2022 05:56-0400 Heart rate 86 /min [facility] Work Phone: 06-06-2022 05:56-0400 Respiratory rate 18 /min [facility] Work Phone: 06-06-2022 05:56-0400 SaO2% (BldA) [Mass fraction] 95 % [facility] Work Phone: 06-06-2022 05:56-0400 Systolic blood pressure 111 mm[Hg] [facility] Work Phone: 06-05-2022 21:07-0400 Body temperature 96.7 [degF] [facility] Work Phone: 06-05-2022 15:48-0400 Body height 154.94 cm [facility] Work Phone: 06-05-2022 15:48-0400 Body mass index (BMI) [Ratio] 34.8 kg/m2 [facility] Work Phone: 06-05-2022 15:48-0400 Body weight 83.6 kg [facility] Work Phone: 05-12-2022 02:24-0400 Body mass index (BMI) [Ratio] 36.6 kg/m2 [facility] Work Phone: 04-12-2022 07:02-0400 Body mass index (BMI) [Ratio] 36.6 kg/m2 [facility] Work Phone: 04-10-2022 06:00-0400 Body temperature 98.9 [degF] [facility] Work Phone: 04-10-2022 06:00-0400 Diastolic blood pressure 76 mm[Hg] [facility] Work Phone: 04-10-2022 06:00-0400 Heart rate 114 /min [facility] Work Phone: 04-10-2022 06:00-0400 Respiratory rate 16 /min [facility] Work Phone: 04-10-2022 06:00-0400 SaO2% (BldA) [Mass fraction] 94 % [facility] Work Phone: 04-10-2022 06:00-0400 Systolic blood pressure 116 mm[Hg] [facility] Work Phone: 04-09-2022 15:46-0400 Body height 154.94 cm [facility] Work Phone: 04-09-2022 15:46-0400 Body mass index (BMI) [Ratio] 35.6 kg/m2 [facility] Work Phone: 04-09-2022 15:46-0400 Body weight 85.7 kg [facility] Work Phone: 03-27-2022 14:06-0400 Diastolic blood pressure 82 mm[Hg] Radha Batista APRN.PRINTING MECHANIST Work Phone: [facility] 03-27-2022 14:06-0400 Heart rate 103 /min Radha Haagen PLOW MECHANIC.PRINTING MECHANIST Work Phone: [facility] 03-27-2022 14:06-0400 Respiratory rate 18 /min Radha Haagen PLOW MECHANIC.PRINTING MECHANIST Work Phone: [facility] 03-27-2022 14:06-0400 SaO2% (BldA) [Mass fraction] 98 % Radha Haagen PLOW MECHANIC.PRINTING MECHANIST Work Phone: [facility] 03-27-2022 14:06-0400 Systolic blood pressure 120 mm[Hg] Radha Haagen PLOW MECHANIC.PRINTING MECHANIST Work Phone: [facility] 03-12-2022 20:43-0400 Body mass index (BMI) [Ratio] 36.6 kg/m2 [facility] Work Phone: 02-10-2022 03:23-0400 Body mass index (BMI) [Ratio] 36.6 kg/m2 [facility] Work Phone: 01-30-2022 13:12-0400 Body weight 85.64 kg Radha Haagen PLOW MECHANIC.PRINTING MECHANIST Work Phone: [facility] 01-30-2022 13:12-0400 Diastolic blood pressure 78 mm[Hg] Radha Haagen PLOW MECHANIC.PRINTING MECHANIST Work Phone: [facility] 01-30-2022 13:12-0400 Heart rate 106 /min Radha Haagen PLOW MECHANIC.PRINTING MECHANIST Work Phone: [facility] 01-30-2022 13:12-0400 Respiratory rate 16 /min Radha Haagen PLOW MECHANIC.PRINTING MECHANIST Work Phone: [facility] 01-30-2022 13:12-0400 Systolic blood pressure 112 mm[Hg] Radha Haagen PLOW MECHANIC.PRINTING MECHANIST Work Phone: [facility] 01-14-2022 15:12-0400 Body weight 84.82 kg Aleksandar Jones MD Work Phone: [facility] 01-14-2022 15:12-0400 Diastolic blood pressure 68 mm[Hg] Aleksandar Jones MD Work Phone: [facility] 01-14-2022 15:12-0400 Heart rate 118 /min Aleksandar Jones MD Work Phone: [facility] 01-14-2022 15:12-0400 SaO2% (BldA) [Mass fraction] 95 % Aleksandar Jones MD Work Phone: [facility] 01-14-2022 15:12-0400 Systolic blood pressure 102 mm[Hg] Aleksandar Jones MD Work Phone: [facility] 01-11-2022 02:25-0400 Body mass index (BMI) [Ratio] 36.6 kg/m2 [facility] Work Phone: 12-11-2021 09:41-0500 Body mass index (BMI) [Ratio] 36.6 kg/m2 [facility] Work Phone: 12-11-2021 08:41-0500 Body mass index (BMI) [Ratio] 36.6 kg/m2 [facility] Work Phone: 11-13-2021 00:10-0500 Body mass index (BMI) [Ratio] 36.6 kg/m2 [facility] Work Phone: 10-14-2021 03:14-0500 Body mass index (BMI) [Ratio] 36.6 kg/m2 [facility] Work Phone: 09-12-2021 02:21-0500 Body mass index (BMI) [Ratio] 36.6 kg/m2 [facility] Work Phone: Encounters Encounter Date Encounter Type Care Provider Facility Start: 08-16-2025 ambulatory [facility] Facility:[facility] Start: 07-19-2025 ambulatory Aleksandar Jones Facility:[facility] Start: 07-12-2025 End: 07-12-2025 Patient encounter procedure Joselyn SCHAEFFER -[facility] Work Phone: Start: 07-12-2025 End: 07-12-[address] Aleksandar Jones MD Work Phone: [facility] Start: 06-28-2025 End: 06-28-2025 ambulatory ALEKSANDAR JONES Facility:[facility] Start: 06-28-2025 End: 06-28-2025 Patient encounter procedure Aleksandar Jones MD Work Phone: [facility] [place] Comment on above: GERD without esophag itis (Primary Dx); Epigastric pain; Venous insufficiency; Pure hypercholesterolemia; Water intoxication; Hyponatremia; Type 2 diabetes mellitus with diabetic nephropathy, with long-term current use of insulin ([facility]); Schizophreniform disorder, chronic condition ([facility]); LIDA (obstructive sleep apnea); SVT (supraventricular tachycardia) ([facility]); Edema, unspecified type; Tachycardia; Acute diastolic CHF (congestive heart failure) ([facility]); Obesity, Class II, BMI 35-39.9; Fatigue, unspecified type; Encounter for immunization; Medication monitoring encounter Start: 06-28-2025 End: 06-28-2025 ambulatory ALEKSANDAR JONES Facility:[facility] Start: 06-23-2025 ambulatory Basil Velasquez Facility :[facility] Start: 06-23-2025 Non-patient / Non-visit Basil Street ca DO -[facility] Start: 06-23-2025 End: 06-23-2025 Admission to same day surgery center Basil Velasquez DO -Endoscopy Work Phone: Start: 06-23-2025 End: 06-23-[address] Aleksandar Jones MD Work Phone: -Endoscopy Start: 06-21-2025 Registered Referred Aleksandar Jones -[facility] [place] Work Phone: Start: 06-21-2025 End: 06-21-2025 ambulatory Aleksandar Jones Facility:[facility] Start: 06-03-2025 End: 06-03-2025 Telephone encounter Aleksandar Jones MD Work Phone: Family [facility] [place] Comment on above: Results Start: 05-24-2025 ambulatory [facility] Facility:[facility] Start: 05-24-2025 Registered Referred [facility] -[facility] [place] Work Phone: Start: 05-19-2025 End: 06-08-2025 Telephone encounter Fuentes Renee MD Work Phone: Cardiology Comment on above: Cardiac Clearance Start: 05-11-2025 End: 05-11-2025 Telephone encounter Aleksandar Jones MD Work Phone: [facility] Comment on above: Statin Recommendatio n Start: 05-10-2025 End: 05-10-2025 Patient encounter procedure Joselyn SCHAEFFER -[facility] Work Phone: Start: 05-10-2025 End: 05-10-[address] Aleksandar Jones MD Work Phone: -[facility] Start: 05-06-2025 End: 05-06-[address] Koby Ramirez MD -Cat Scan [facility] Work Phone: Start: 05-06-2025 End: 05-06-[address] Aleksandar Jones MD Work Phone: -Cat Scan [facility] Start: 04-26-2025 Registered Referred [facility] -[facility] Work Phone: Start: 04-26-2025 End: 04-26-2025 ambulatory [facility] Facility:[facility] Start: 04-11-2025 Registered Referred [facility] -[facility] Work Phone: Start: 04-11-2025 End: 04-11-[address] [facility] Facility:[facility] Start: 04-04-2025 End: 04-04-2025 Patient encounter procedure Fuentes Renee MD Work Phone: Cardiology Comment on above: Primary hypertension (Primary Dx); SVT (supraventricular tachycardia) (HCC) Start: 04-04-2025 End: 04-04-2025 [facility] Start: 03-29-2025 End: 04-05-2025 Follow-up encounter Aleksandar Jones MD Work Phone: [facility] Start: 03-29-2025 End: 03-29-2025 Subsequent hospital visit by physician Xr [facility] [place] Work Phone: Radiology Comment on above: Cough, unspecified t ype [R05.9] Start: 03-29-2025 End: 03-29-2025 ambulatory ALEKSANDAR Wojciech ROBERT Facility:[facility] Start: 03-29-2025 End: 03-29-2025 Patient encounter procedure Aleksandar Jones MD Work Phone: [facility] [place] Comment on above: Hyponatremia (Primar y Dx); Water intoxication; Type 2 diabetes mellitus with diabetic nephropathy, with long-term current use of insulin (HCC); Leukocytosis, unspecified type; Pure hypercholesterolemia; GERD without esophagitis; Schizophreniform disorder, chronic condition (HCC); Chronic obstructive pulmonary disease, unspecified COPD type ([facility]); LIDA (obstructive sleep apnea); Cough, unspecified type; Hepatitis B core antibody positive; History of CHF (congestive heart failure) Start: 03-29-2025 End: 03-29-2025 ambulatory ALEKSANDAR Jeffrey ROBERT Facility:[facility] Start: 03-28-2025 End: 03-28-[address] Aleksandar Jones MD Work Phone: [facility] Start: 03-28-2025 End: 03-28-2025 Departed Referred Aleksandar Jones [facility] Work Phone: Start: 03-28-2025 Registered Referred Aleksandar Jones [facility] Work Phone: Start: 03-28-2025 End: 03-28-2025 ambulatory Aleksandar [place] Facility:[facility] Start: 03-14-2025 End: 03-14-2025 Telephone encounter Aleksandar Jones MD Work Phone: [facility] [place] Comment on above: Letter Start: 03-01-2025 End: 03-01-[address] Aleksandar Jones MD Work Phone: [facility] Work Phone: Start: 03-01-2025 End: 03-01-2025 Departed Referred [facility] -[facility] [place] Work Phone: Start: 03-01-2025 End: 03-01-2025 ambulatory [facility] Facility:[facility] Start: 02-25-2025 End: 03-16-2025 Telephone encounter Aleksandar Jones MD Work Phone: [facility] [place] Comment on above: Patient Update Start: 02-18-2025 End: 02-18-2025 Refill Aleksandar Jones MD Work Phone: [facility] [place] Comment on above: Refill Request Start: 02-10-2025 End: 02-11-2025 Telephone encounter [facility] Comment on above: Forms Start: 02-10-[address] [facility] Facility:[facility] Start: 02-02-2025 End: 02-09-[address] Lorraine Springer MD -Laboratory Work Phone: Start: 02-02-2025 End: 02-09-[address] [facility] Facility:[facility] Start: 01-31-2025 End: 02-08-2025 Telephone encounter Aleksandar Jones MD Work Phone: [facility] [place] Start: 01-27-2025 End: 01-28-2025 Telephone encounter Aleksandar Jones MD Work Phone: [facility] [place] Comment on above: Forms Start: 01-25-2025 End: [...] 01-19-2025 End: 01-19-2025 ambulatory ALEKSANDAR JONES Facility:[facility] Start: 01-19-2025 End: 01-19-2025 Subsequent hospital visit by physician Screen Mammo [facility] Comment on above: Encounter for screen ing mammogram for breast cancer [Z12.31] Start: 01-18-2025 End: 03-20-2025 Follow-up encounter Aleksandar Jones MD Work Phone: Family [facility] [place] Start: 01-18-2025 End: 01-18-2025 ambulatory ALEKSANDAR ROBERT Facility:[facility] Start: 01-18-2025 End: 01-18-2025 Subsequent hospital visit by physician Us [facility] W[facility] Mob 2 Work Phone: Radiology Comment on above: Elevated liver enzym es [R74.8] Start: 01-14-2025 End: 01-14-2025 Follow-up encounter Radha Batista APRN.CNP Work Phone: [facility] [place] Start: 01-12-2025 End: 03-14-2025 Follow-up encounter Aleksandar Jones MD Work Phone: [facility] [place] Start: 01-12-2025 End: 01-12-2025 Telephone encounter Aleksandar Jones MD Work Phone: [facility] [place] Comment on above: Orders Start: 01-12-2025 End: 01-12-2025 ambulatory RADHA BATISTA Facility:[facility] Start: 01-12-2025 End: 01-12-2025 Patient encounter procedure Aleksandar Jones MD Work Phone: [facility] [place] Comment on above: Water intoxication ( Primary Dx); Vitamin D deficiency; Hepatitis B core antibody positive; Hyponatremia; Acute diastolic CHF (congestive heart failure) (HCC); Liver function test abnormality; Type 2 diabetes mellitus with diabetic nephropathy, with long-term current use of insulin (HCC) Start: 01-11-2025 End: 01-11-2025 [facility]ulatory [facility] Start: 01-05-2025 End: 01-05-2025 Patient encounter procedure Jey Brown MD Work Phone: [facility] [place] [facility] Start: 01-05-2025 End: 01-12-2025 Telephone encounter Aleksandar Jones MD Work Phone: [facility] Comment on above: Patient Update Start: 01-04-2025 End: 01-04-[address] Lorraine Springer MD -Laboratory Work Phone: Start: 01-04-2025 End: 01-04-[address] Aleksandar Jones MD Work Phone: [facility] Work Phone: Start: 01-04-2025 End: 01-05-2025 Follow-up encounter Radha Batista APRN.PRINTING MECHANIST [facility] Start: 01-04-2025 End: 01-12-2025 Telephone encounter Aleksandar Jones MD Work Phone: [facility] Comment on above: Results Start: 01-03-2025 End: 01-06-2025 Refill Aleksandar Jones MD Work Phone: [facility] Comment on above: Refill Request Start: 12-31-2024 End: 12-31-2024 Follow-up encounter Radha Batista APRN.PRINTING MECHANIST [facility] Start: 12-30-2024 End: 12-31-2024 Refill Aleksandar Jones MD Work Phone: [facility] Comment on above: Refill Request Results Start: 12-29-2024 End: 02-28-2025 Follow-up encounter Aleksandar Jones MD Work Phone: [facility] [place] Start: 12-28-2024 End: 12-28-2024 ambulatory RADHA BATISTA Facility:[facility] Start: 12-28-2024 End: 12-28-2024 Patient encounter procedure Aleksandar Jones MD Work Phone: Family [facility] [place] Comment on above: COVID (Primary Dx); Acute diastolic CHF (congestive heart failure) (HCC); Pure hypercholesterolemia; SVT (supraventricular tachycardia) (HCC); Chronic obstructive pulmonary disease, unspecified COPD type (HCC); LIDA (obstructive sleep apnea); Gastritis without bleeding, unspecified chronicity, unspecified gastritis type; Water intoxication; Type 2 diabetes mellitus with diabetic nephropathy, with long-term current use of insulin ([facility]); Vitamin D deficiency; Obesity, Class II, BMI 35-39.9; Degeneration of intervertebral disc of lumbar region with discogenic back pain and lower extremity pain; Elevated liver enzymes; Schizophreniform disorder, chronic condition (HCC) Start: 12-21-2024 End: 12-21-2024 Emergency department patient visit Dr. Alekasndar Jones MD Work Phone: -Emergency Department Work Phone: Start: 12-08-2024 End: 12-10-[address] Lorraine Springer MD -Laboratory Work Phone: Start: 12-08-2024 End: 12-10-2024 Refill Aleksandar Jones MD Work Phone: [facility] Comment on above: Refill Request Start: 12-07-2024 End: 12-08-2024 Follow-up encounter Radha Batsita APRN.CNP Work Phone: [facility] [place] Start: 12-07-2024 End: 12-07-2024 Subsequent hospital visit by physician Xr [facility] [place] Work Phone: Radiology Comment on above: Bacterial pneumonia [J15.9] Start: 12-07-2024 End: 12-07-2024 ambulatory RADHA BATISTA Facility:[facility] Start: 12-07-2024 End: 12-07-2024 Office outpatient visit 25 minutes Radha Batista APRN.CNP Work Phone: [facility] [place] Comment on above: Leg pain, bilateral (Primary Dx); Bacterial pneumonia Start: 12-03-2024 End: 02-02-2025 Follow-up encounter Radha Batista APRN.CNP Work Phone: [facility] [place] Start: 12-03-2024 End: 12-03-2024 Telephone encounter Radha Batista APRN.CNP Work Phone: [facility] [place] Comment on above: Results Start: 12-01-2024 End: 12-01-2024 ambulatory [facility] Facility:[facility] Start: 11-29-2024 End: 11-29-2024 Telephone encounter Aleksandar Jones MD Work Phone: [facility] [place] Comment on above: Appointment Start: 11-25-2024 End: 11-25-2024 Refill Aleksandar Jones MD Work Phone: [facility] [place] Comment on above: Refill Request Start: 2024 End: 2024 Refill Aleksandar Jones MD Work Phone: [address] [place] [address] Comment on above: Refill Request Start: 11-12-2024 Non-patient / Non-visit Dr. Neela eLbron [facility] Work Phone: Start: 11-11-2024 Non-patient / Non-visit Dr. Neela Lebron [facility] Work Phone: Start: 11-10-2024 Non-patient / Non-visit Dr. Neela Lebron [facility] Work Phone: Start: 11-10-2024 End: 11-10-2024 Telephone encounter Aleksandar Jones MD Work Phone: [facility] [place] Start: 11-09-2024 End: 11-12-2024 Evaluation and management of inpatient Dr. Ana Lilia Lebron [facility] 3 Work Phone: Start: 11-09-2024 End: 11-09-2024 Subsequent hospital visit by physician Radha [facility] [place] Work Phone: Radiology Comment on above: Acute cough [R05.1] Start: 11-09-2024 End: 11-09-2024 ambulatory ALEKSANDAR JONES Facility:[facility] Start: 11-09-2024 End: 11-09-2024 Patient encounter procedure Zaira Mancilla PLOW MECHANIC.PRINTING MECHANIST Work Phone: [place] [facility] Comment on above: Pneumonia of right l lisbeth due to infectious organism, unspecified part of lung (Primary Dx); Fever, unspecified fever cause; Acute cough; URI, acute Start: 11-05-2024 End: 11-09-2024 Telephone encounter Radha Batista APRN.PRINTING MECHANIST Work Phone: [facility] [place] Comment on above: Results Start: 11-02-2024 End: 11-02-2024 Subsequent hospital visit by physician Xr [facility] [place] Work Phone: Radiology Comment on above: Weakness of both low er extremities [R29.898] Start: 11-02-2024 End: 11-02-2024 ambulatory [facility] Facility:[facility] Start: 11-02-2024 End: 11-02-2024 Office outpatient visit 25 minutes Rahda Batista APRN.PRINTING MECHANIST Work Phone: [facility] [place] Comment on above: Weakness of both low er extremities (Primary Dx); Uncontrolled type 2 diabetes mellitus with hyperglycemia (HCC); Hyperlipidemia, unspecified hyperlipidemia type; Leg pain, bilateral Start: 11-02-2024 End: 11-02-2024 ambulatory [facility] Facility:[facility] Start: 10-29-2024 End: 10-29-2024 Refill Aleksandar Jones MD Work Phone: [facility] [place] Comment on above: Refill Request Start: 10-14-2024 End: 10-14-2024 Emergency department patient visit Dr. Tae Holland DO -Emergency Department Work Phone: Start: 10-14-2024 End: 10-14-[address] Lorraine Springer MD -Laboratory Work Phone: Start: 10-14-2024 End: 10-14-2024 [facility] Start: 10-04-2024 End: 10-04-2024 Refill [facility] MD [facility] Comment on above: Refill Request Start: 09-28-2024 End: 09-28-2024 Office outpatient visit 25 minutes Radha Batista APRN.PRINTING MECHANIST Work Phone: [facility] [place] Comment on above: Leg pain, bilateral (Primary Dx) Start: 09-28-2024 End: 09-28-2024 ambulatory ALEKSANDAR JONES Facility:[facility] Start: 09-24-2024 End: 09-24-2024 Refill Aleksandar Jones MD Work Phone: [facility] [place] Comment on above: Refill Request Start: 09-20-2024 End: 09-20-2024 ambulatory ALEKSANDAR JONES Facility:[facility] Start: 09-20-2024 End: 09-20-2024 Patient encounter procedure Fuentes Renee MD Work Phone: Cardiology Comment on above: Primary hypertension (Primary Dx); Pure hypercholesterolemia; SVT (supraventricular tachycardia) (HCC); Tachycardia Start: 09-16-2024 End: 09-16-[address] Lorraine Springer MD -Laboratory Work Phone: Start: 09-16-2024 End: 09-16-2024 [facility] Start: 09-08-2024 End: 09-08-2024 Office outpatient visit 25 minutes Radha Batista APRN.CNP Work Phone: [facility] [place] Comment on above: Chronic obstructive pulmonary disease, unspecified COPD type (HCC) (Primary Dx); Leg pain, bilateral; Encounter for immunization Start: 09-08-2024 End: 09-08-2024 ambulatory ALEKSANDAR JONES Facility:[facility] Start: 08-31-2024 End: 08-31-2024 Refill Aleksandar Jones MD Work Phone: [facility] Comment on above: Refill Request Start: 08-25-2024 End: 09-11-[address] Lorraine Springer MD -Laboratory Work Phone: Start: 08-25-2024 End: 09-11-2024 ambulatory Shelia Suppan Facility:[facility] Start: 08-24-2024 End: 08-24-2024 ambulatory SHELIA A SUPPAN Facility:[facility] Start: 08-24-2024 End: 08-24-2024 Office outpatient visit 15 minutes Shelia A Suppan PLOW MECHANIC.PRINTING MECHANIST Work Phone: [facility] [place] Comment on above: LIDA (obstructive sle ep apnea) (Primary Dx); Acute exacerbation of chronic obstructive pulmonary disease (COPD) (HCC); Tachycardia; Tinea cruris Start: 08-20-2024 End: 08-20-2024 Refill Aleksandar Jones MD Work Phone: [facility] [place] Comment on above: Refill Request Start: 08-18-2024 End: 08-18-2024 Telephone encounter Aleksandar Jones MD Work Phone: [facility] [place] Comment on above: Medication Problem Start: 08-16-2024 End: 08-16-2024 Telephone encounter Aleksandar Jones MD Work Phone: [facility] [place] Comment on above: Medication Request ( Cough drops) Start: 08-06-2024 End: 08-06-2024 Refill Aleksandar Jones MD Work Phone: [facility] [place] Comment on above: Refill Request Start: 07-31-2024 End: 07-31-2024 ambulatory Barbara Dickens RN NURSE [employer] Comment on above: Information Start: 07-31-2024 End: 07-31-2024 Patient encounter procedure Malcolm Abreu RN NURSE ON JAZLYN L Comment on above: Clinical Update Start: 07-31-2024 End: 07-31-2024 Telephone encounter Aleksandar Jones MD Work Phone: [facility] [place] Comment on above: took another group h ome patient s medications Start: 07-29-2024 End: 07-29-2024 Refill Aleksandar Jones MD Work Phone: [facility] [place] Comment on above: Refill Request Start: 07-23-2024 End: 07-23-2024 ambulatory ALEKSANDAR JONES Facility:[facility] Start: 07-23-2024 End: 07-23-2024 Office outpatient visit 15 minutes Adriano Menezes PLOW MECHANIC.PRINTING MECHANIST Work Phone: [place] [facility] Comment on above: Pain of right eye (P rimary Dx) Start: 07-22-2024 End: 07-22-2024 Telephone encounter Aleksandar Jones MD Work Phone: [facility] [place] Comment on above: Patient Question Start: 07-14-2024 End: 07-14-2024 Telephone encounter Aleksandar Jones MD Work Phone: [facility] [place] Comment on above: Medication issue Start: 07-09-2024 [...] Start: 07-06-2024 End: 07-06-2024 ambulatory RADHA BATISTA Facility:[facility] Start: 06-23-2024 End: 06-28-2024 ambulatory Aleksandar Jones MD Work Phone: Internal Medicine [place] [id number] Start: 06-17-2024 End: 06-17-2024 Refill Aleksandar Jones MD Work Phone: [facility] [place] Comment on above: Refill Request Start: 06-11-2024 [...] 05-18-2024 Refill Aleksandar Jones MD Work Phone: [facility] Comment on above: Refill Request Start: 05-03-2024 Refill Aleksandar Jones MD Work Phone: [facility] Comment on above: Refill Request Medication Problem Start: 04-16-2024 Refill Aleksandar Jones MD Work Phone: [facility] [place] Comment on above: Refill Request Start: 04-14-2024 End: 04-14-2024 Office outpatient visit 25 minutes Radha Batista APRN.PRINTING MECHANIST Work Phone: [facility] Comment on above: Folliculitis (Primar y Dx); Fatigue, unspecified type Start: 04-01-2024 End: 04-01-2024 ambulatory Long Golias PT Work Phone: [facility] Comment on above: Weakness of both low er extremities (Primary Dx) Start: 03-30-2024 End: 03-30-2024 ambulatory Long Golias PT Work Phone: [facility] Comment on above: Weakness of both low er extremities (Primary Dx) Start: 03-30-2024 End: 03-30-2024 Office outpatient visit 15 minutes Radha Batista APRN.PRINTING MECHANIST Work Phone: [facility] Comment on above: Uncontrolled type 2 diabetes mellitus with hyperglycemia (HCC) (Primary Dx) Start: 03-25-2024 End: 03-25-2024 ambulatory Jaci Ericksonba [employer] Work Phone: [facility] Comment on above: Weakness of both low er extremities (Primary Dx) Start: 03-23-2024 End: 03-23-2024 ambulatory Long Golias PT Work Phone: [facility] Comment on above: Weakness of both low er extremities (Primary Dx) Start: 03-19-2024 Refill Aleksandar Jones MD Work Phone: [facility] Comment on above: Refill Request Start: 03-19-2024 End: 03-19-2024 Office outpatient visit 25 minutes Radha Batista APRN.PRINTING MECHANIST Work Phone: [facility] Comment on above: Uncontrolled type 2 diabetes mellitus with hyperglycemia (HCC) (Primary Dx); Thrombocytopenia (HCC); Elevated liver enzymes Start: 03-18-2024 Telephone encounter Aleksandar Jones MD Work Phone: Pulmonology [facility] Comment on above: Patient Update Start: 03-18-2024 End: 03-18-2024 ambulatory Jaci Almendarezba STOCKROOM KEEPER Work Phone: [facility] Comment on above: Weakness of both low er extremities (Primary Dx); Leg weakness, bilateral Start: 03-16-2024 End: 03-16-2024 ambulatory Long Golias PT Work Phone: [facility] Comment on above: Weakness of both low er extremities (Primary Dx) Start: 03-12-2024 Telephone encounter Rolf Herrera DO Work Phone: Internal Medicine [place] Comment on above: Patient Update (Call from nurse on-call last evening on March 11 regarding hyperglycemia) Start: 03-05-2024 Telephone encounter Radha brown APRN.PRINTING MECHANIST Work Phone: [facility] Comment on above: Results Start: 03-04-2024 End: 03-04-2024 ambulatory Jaci Brady STOCKROOM KEEPER Work Phone: [facility] Comment on above: Weakness of both low er extremities (Primary Dx) Start: 03-02-2024 End: 03-02-2024 ambulatory Long Golias PT Work Phone: [facility] Comment on above: Leg weakness, bilate ral (Primary Dx); Weakness of both lower extremities Start: 03-02-2024 End: 03-02-2024 Office outpatient visit 25 minutes Radha Batista APRN.PRINTING MECHANIST Work Phone: [facility] Comment on above: Fatigue, unspecified type (Primary Dx); Pain in both lower extremities; Type 2 diabetes mellitus with diabetic nephropathy, with long-term current use of insulin (HCC) Start: 02-26-2024 End: 02-26-2024 ambulatory Long Golias PT Work Phone: [facility] Comment on above: Leg weakness, bilate ral (Primary Dx) Start: 02-24-2024 End: 02-24-2024 ambulatory Jaci Kashuba STOCKROOM KEEPER Work Phone: [facility] Comment on above: Leg weakness, bilate ral (Primary Dx) Refill Request Start: 02-19-2024 End: 02-19-2024 ambulatory Long Golias PT Work Phone: [facility] Comment on above: Leg weakness, bilate ral (Primary Dx) Start: 02-17-2024 End: 02-17-2024 ambulatory Jaci Bhargavhuba STOCKROOM KEEPER Work Phone: [facility] Comment on above: Leg weakness, bilate ral (Primary Dx) Start: 02-12-2024 End: 02-12-2024 ambulatory Jaci Almendarezba STOCKROOM KEEPER Work Phone: [facility] Comment on above: Leg weakness, bilate ral (Primary Dx) Start: 02-10-2024 End: 02-10-2024 ambulatory Long Golias PT Work Phone: [facility] Comment on above: Leg weakness, bilate ral (Primary Dx) Start: 02-05-2024 End: 02-05-2024 ambulatory Jaci Almendarezba STOCKROOM KEEPER Work Phone: [facility] Comment on above: Leg weakness, bilate ral (Primary Dx) Start: 02-04-2024 Telephone encounter Aleksandar Jones MD Work Phone: Family Medicine [place] Comment on above: Insurance Authorizat ion (Lantus solostar ) Start: 02-03-2024 End: 02-10-2024 Discharged Recurring [facility] Work Phone: Start: 02-03-2024 End: 02-10-2024 ambulatory Long Golias PT Work Phone: [facility] Comment on above: Leg weakness, bilate ral (Primary Dx) Start: 01-29-2024 Refill Aleksandar Jones MD Work Phone: [facility] Comment on above: Refill Request Start: 01-21-2024 End: 01-21-2024 ambulatory Long Davis PT Work Phone: [facility] Comment on above: Leg weakness, bilate ral Start: 01-13-2024 End: 01-13-2024 Office outpatient visit 25 minutes Radha Batista APRN.PRINTING MECHANIST Work Phone: [facility] Comment on above: Acute constipation ( Primary Dx); Nasal dryness; Pain in both lower extremities; Leg weakness, bilateral; Sedative, hypnotic or anxiolytic dependence, uncomplicated (HCC); Acute respiratory failure with hypoxia (HCC); Chronic obstructive pulmonary disease, unspecified COPD type ([facility]); SVT (supraventricular tachycardia) ([facility]) Start: 01-07-2024 End: 01-10-2024 ambulatory [facility] Work Phone: Start: 01-07-2024 End: 01-10-2024 Discharged Recurring [facility] Work Phone: Start: 12-13-2023 End: 12-14-2023 Emergency department patient visit Dr. Aleksandar Jones Work Phone: [facility] Work Phone: Start: 12-02-2023 Refill Aleksandar Jones MD Work Phone: [facility] Comment on above: Refill Request Start: 11-20-2023 Telephone encounter Meredith Carroll martir PLOW MECHANICMeghanPRINTING MECHANIST Work Phone: [facility] Comment on above: Results (Labs ) Start: 11-19-2023 End: 12-11-[address] Aleksandar Jones Work Phone: [facility] Work Phone: Start: 11-19-2023 End: 12-11-[address] Aleksandar Jones Work Phone: [facility] Work Phone: Start: 10-24-2023 End: 10-24-[address] Aleksandar Jones Work Phone: [facility] Work Phone: Start: 10-24-2023 End: 10-24-[address] Aleksandar Jones Work Phone: [facility], [facility] Work Phone: Start: 10-22-2023 End: 10-22-[address] Aleksandar Jones Work Phone: [facility] Work Phone: Start: 10-22-2023 End: 10-22-[address] [facility] Start: 10-22-[address] Andrew Jones Work Phone: [facility] Work Phone: Start: 09-22-2023 End: 09-22-2023 Patient encounter procedure Fuentes Renee MD Work Phone: Cardiology Comment on above: Primary hypertension (Primary Dx); Pure hypercholesterolemia; SVT (supraventricular tachycardia) Start: 09-17-2023 End: 10-12-[address] [facility] Start: 09-10-2023 Refill Aleksandar Jones MD Work Phone: [facility] Comment on above: Refill Request Start: 09-09-2023 Telephone encounter Aleksandar Jones MD Work Phone: [facility] Comment on above: Medication Problem ( Test strips and lancets) Start: 08-31-2023 Telephone encounter Alma brown APRN.CNP Work Phone: [facility] Comment on above: Results Start: 08-29-2023 End: 08-29-2023 Patient encounter procedure Alma Ac APRN.PRINTING MECHANIST Work Phone: OB/Gynecology Comment on above: Itching in the vagin al area (Primary Dx) Start: 08-28-2023 Refill Aleksandar Jones MD Work Phone: [facility] Comment on above: Refill Request Start: 08-20-2023 Telephone encounter Aleksandar Jones MD Work Phone: [facility] Comment on above: Refill Request; Medi cation Problem Start: 08-19-2023 Telephone encounter Aleksandar Jones MD Work Phone: [facility] Comment on above: Elevated Blood Sugar Start: 08-19-2023 End: 09-11-[address] Aleksandar Jones Work Phone: [facility] Work Phone: Start: 08-19-2023 End: 09-11-[address] Aleksandar Jones Work Phone: [facility] Work Phone: Start: 08-16-2023 Non-patient / Non-visit Dr. Julio Cesar Jones Work Phone: [facility] Work Phone: Start: 08-15-2023 Non-patient / Non-visit Dr. Julio Cesar Jones Work Phone: [facility] Work Phone: Start: 08-14-2023 Non-patient / Non-visit Dr. Julio Cesar Jones Work Phone: [facility] Work Phone: Start: 08-14-2023 End: 08-16-2023 Evaluation and management of inpatient Dr. Aleksandar Jones Work Phone: [facility] Work Phone: Start: 08-12-2023 Refill Aleksandar Jones MD Work Phone: [facility] Comment on above: Refill Request Start: 07-17-2023 End: 07-17-[address] [facility] Start: 07-16-2023 ambulatory Aleksandar Jones MD Work Phone: Internal Medicine [facility] [place] Start: 07-15-2023 Refill Fuentes Renee MD Work Phone: Cardiology Comment on above: Refill Request Start: 06-18-2023 End: 06-18-2023 Refill Aleksandar Jones MD Work Phone: [facility] Comment on above: Refill Request Start: 06-18-2023 End: 06-18-2023 [facility] Start: 05-27-2023 Refill Aleksandar Jones MD Work Phone: [facility] Comment on above: Refill Request Start: 05-26-2023 Telephone encounter Radha brown APRN.PRINTING MECHANIST Work Phone: [facility] Comment on above: Results Start: 05-26-2023 End: 05-26-2023 Nursing evaluation of patient and report Nurse Card Admin [facility] Work Phone: Cardiology Comment on above: Tachycardia (Primary Dx) Start: 05-26-2023 End: 05-26-2023 Subsequent hospital visit by physician Injection [facility] Work Phone: Nuclear Medicine Comment on above: Chest pain, unspecif ied type [R07.9] Start: 05-23-2023 Refill Aleksandar Jones MD Work Phone: [facility] Comment on above: Refill Request Start: 05-20-2023 End: 05-20-2023 ambulatory [facility] Work Phone: Start: 05-20-2023 End: 05-20-2023 [facility] Start: 05-08-2023 Telephone encounter Aleksandar Jones MD Work Phone: [facility] Comment on above: Results Start: 05-05-2023 End: 05-12-2023 ambulatory [facility] Work Phone: Start: 05-05-2023 End: 05-12-2023 Discharged Recurring [facility] Work Phone: Start: 04-30-2023 End: 04-30-2023 ambulatory [facility] Work Phone: Start: 04-30-2023 End: 04-30-2023 Patient encounter procedure [facility], [facility] Work Phone: Start: 04-29-2023 End: 04-29-2023 Office outpatient visit 40 minutes Radha Batista APRN.PRINTING MECHANIST Work Phone: [facility] Comment on above: Chest pain, unspecif ied type (Primary Dx); Weight loss; Type 2 diabetes mellitus with diabetic nephropathy, with long-term current use of insulin ([facility]); Hyperlipidemia, unspecified hyperlipidemia type; GERD without esophagitis; Acute diastolic CHF (congestive heart failure) ([facility]); Schizophreniform disorder, chronic condition ([facility]); Fatigue, unspecified type Start: 03-17-2023 End: 03-17-2023 [facility] Work Phone: Start: 03-17-2023 End: 03-17-2023 [facility] Start: 02-26-2023 Refill Radha Batista APRN.PRINTING MECHANIST Work Phone: [facility] Comment on above: Refill Request Start: 02-17-2023 End: 03-12-2023 ambulatory [facility] Work Phone: Start: 02-17-2023 End: 03-12-2023 Discharged Recurring [facility] Start: 02-14-2023 Refill Aleksandar Jones MD Work Phone: [facility] Comment on above: Refill Request Start: 01-30-2023 Refill Aleksandar Jones MD Work Phone: [facility] Comment on above: Refill Request Start: 01-15-2023 End: 02-09-2023 ambulatory [facility] Work Phone: Start: 01-15-2023 End: 02-09-2023 Discharged Recurring [facility] Start: 12-16-2022 End: 01-10-2023 [facility] Work Phone: Start: 12-16-2022 End: 01-10-2023 Discharged Recurring [facility] Start: 12-09-2022 Refill Aleksandar Jones MD Work Phone: [facility] Comment on above: Refill Request Start: 11-19-2022 End: 11-19-2022 ambulatory [facility] Work Phone: Start: 11-19-2022 End: 11-19-2022 Discharged Recurring [facility] Start: 10-17-2022 End: 10-17-2022 ambulatory [facility] Work Phone: Start: 10-17-2022 End: 10-17-2022 Discharged Recurring [facility] Start: 10-08-2022 Refill Aleksandar Jones MD Work Phone: [facility] Comment on above: Refill Request Start: 10-04-2022 Refill Aleksandar Jones MD Work Phone: [facility] Comment on above: Refill Request Start: 09-19-2022 End: 09-19-2022 ambulatory [facility] Work Phone: Start: 09-19-2022 End: 09-19-2022 Discharged Recurring [facility] Start: 09-11-2022 Refill Aleksandar Jones MD Work Phone: [facility] Comment on above: Refill Request Start: 08-30-2022 Refill Aleksandar Jones MD Work Phone: [facility] Comment on above: Refill Request Start: 08-28-2022 End: 08-28-2022 Office outpatient visit 25 minutes Radha Batista APRN.PRINTING MECHANIST Work Phone: [facility] Comment on above: Type 2 diabetes mendel itus with diabetic nephropathy, with long- term current use of insulin (HCC) (Primary Dx); Schizophreniform disorder, chronic condition (HCC); Hyperlipidemia, unspecified hyperlipidemia type; LIDA (obstructive sleep apnea); Rosacea; Upper back pain; Gassiness Start: 08-19-2022 Refill Aleksandar Jones MD Work Phone: [facility] Comment on above: Refill Request Start: 08-15-2022 End: 09-11-2022 Refill Aleksandar Jones MD Work Phone: [facility] Comment on above: Refill Request Start: 08-15-2022 End: 09-11-2022 Discharged [facility] Start: 08-13-2022 Refill Fuentes Renee MD Work Phone: Cardiology Comment on above: Refill Request Start: 08-08-2022 End: 08-08-2022 Patient encounter procedure Zaira Mancilla APRN.PRINTING MECHANIST Work Phone: [place] [facility] Comment on above: Conjunctivitis of le ft eye, unspecified conjunctivitis type (Primary Dx); Facial infection Start: 08-07-2022 ambulatory Aleksandar Jones MD Work Phone: [facility] [place] Start: 07-23-2022 End: 07-23-2022 Discharged [facility] Start: 07-05-2022 End: 07-05-2022 Patient encounter procedure Zaira Mancilla APRN.PRINTING MECHANIST Work Phone: [facility] Comment on above: Injury of toenail of right foot, initial encounter (Primary Dx) Start: 06-20-2022 Refill Aleksandar Jones MD Work Phone: [facility] Comment on above: Refill Request Start: 06-19-2022 End: 06-19-2022 ambulatory [facility] Work Phone: Start: 06-19-2022 End: 06-19-2022 [facility] Start: 06-05-2022 End: 06-06-2022 Emergency department patient visit [facility] Start: 05-17-2022 End: 05-17-2022 ambulatory [facility] Work Phone: Start: 05-17-2022 End: 05-17-2022 [facility] Start: 05-17-2022 [facility] Start: 05-08-2022 Refill Aleksandar Jones MD Work Phone: [facility] [place] Comment on above: Refill Request Start: 05-07-2022 Telephone encounter Aleksandar Jones MD Work Phone: [facility] [place] Comment on above: Patient Question Start: 05-02-2022 Refill Aleksandar Jones MD Work Phone: [facility] Comment on above: Refill Request Start: 04-18-2022 End: 04-18-2022 Patient encounter procedure [facility], [facility] Start: 04-17-2022 End: 05-12-2022 [facility] Start: 04-17-2022 [facility] Start: 04-09-2022 End: 04-10-2022 [facility] Start: 03-27-2022 End: 03-27-2022 Office outpatient visit 15 minutes Radha Batista APRN.CNP Work Phone: [facility] Comment on above: Skin irritation (Moraima malcolm Dx); Rosacea Start: 03-27-2022 Refill Aleksandar Jones MD Work Phone: [facility] Comment on above: Refill Request Start: 03-20-2022 End: 03-20-2022 [facility] Start: 03-20-2022 [facility]istered [facility] Start: 02-13-2022 End: 02-13-2022 [facility] Start: 01-30-2022 End: 01-30-2022 Patient encounter procedure Radha Batista PLOW MECHANIC.PRINTING MECHANIST Work Phone: [facility] Comment on above: Right hip pain (Prim robin Dx) Start: 01-29-2022 Telephone encounter Aleksandar Jones MD Work Phone: [facility] Comment on above: Medication Request Start: 01-14-2022 End: 01-14-2022 Refill Aleksandar Jones MD Work Phone: [facility] Comment on above: Refill Request Tachycardia (Primary Dx); SVT (supraventricular tachycardia) (HCC); Acute diastolic CHF (congestive heart failure) (HCC); Chronic obstructive pulmonary disease, unspecified COPD type (HCC); LIDA (obstructive sleep apnea); Water intoxication; Type 2 diabetes mellitus with diabetic nephropathy, with long-term current use of insulin ([facility]); Schizophreniform disorder, chronic condition ([facility]); Vitamin D deficiency; Advance care planning Start: 01-14-2022 End: 01-14-2022 Discharged Recurring [facility] Start: 01-11-2022 Refill Aleksandar Jones MD Work Phone: [facility] Comment on above: Refill Request Start: 12-13-2021 End: 01-10-2022 Discharged Recurring [facility] Start: 11-20-2021 End: 11-20-2021 Discharged Recurring [facility] Start: 10-16-2021 End: 11-12-2021 Discharged Recurring [facility] Start: 09-24-2021 End: 10-13-2021 Discharged Recurring [facility] Start: 07-19-2021 End: 07-19-2021 Subsequent hospital visit by physician [facility] Work Phone: Radiology Comment on above: Behavioral change [R 46.89] Start: 10-18-2020 End: 10-18-2020 [facility] Comment on above: SOB (shortness of br eath) [R06.02] Start: 06-08-2018 [facility] KIMBERLY MONIQUE Facility :[facility] Start: 11-27-2017 End: 11-27-2017 Ambulatory KIMBERLY AMAYA Facility:[facility] Start: 08-29-2009 End: 11-26-2011 Patient encounter status Long Davis PT Work Phone: [facility] Work Phone: Procedures Date Procedure Procedure [...] Work Phone: Start: 12-21-[address] Anderw Jones MD Work Phone: Start: 12-21-[address] Aleksandar Jones MD Work Phone: Start: 12-21-2024 Urnls dip stick/tabl et reagent auto microscopy Dr. Aleksandar Jones MD Work Phone: Start: 12-21-2024 X-ray of chest, PA a nd lateral views Dr. Aleksandar Jones MD Work Phone: Start: 12-07-2024 Radiologic exam ches t 2 views Radha Batista PLOW MECHANIC.PRINTING MECHANIST Work Phone: Start: 11-12-2024 Plain chest X-ray [...] exam ches t 2 views Zaira Mancilla PLOW MECHANIC.PRINTING MECHANIST Work Phone: Start: 11-09-2024 INFLUENZA A&B MOLECU LAR (POC) [facility] Provider Start: 11-09-[address] Andrew Jones MD Work Phone: Start: 11-09-2024 SARS-CoV-2, Influenz a & RSV (PCR) Dr. Aleksandar Jones MD Work Phone: Start: 11-02-2024 Radex spine lumbosac ral 2/3 views Radha Batista PLOW MECHANIC.PRINTING MECHANIST Work Phone: Start: 10-14-2024 Plain chest X-ray Dr. Melanie Jones MD Work Phone: Start: 10-14-2024 SARS-CoV-2, Influenz a & RSV (PCR) Dr. Aleksandar Jones MD Work Phone: Start: 09-20-2024 Ecg routine ecg w/le ast 12 lds i&r only Fuentes Renee MD Work Phone: Start: 07-06-2024 PFIZER-BIONTECH COVI D-19 VACCINE AGE 12+ YR Radha Batista PLOW MECHANIC.PRINTING MECHANIST Work Phone: Start: 12-13-2023 Computed tomography of abdomen and pelvis with intravenous contrast Dr. Aleksandar Jones Work Phone: Start: 12-13-2023 SARS-CoV-2, Influenz a & RSV (PCR) Dr. Aleksandar Jones Work Phone: Start: 10-24-2023 Plain chest X-ray Dr. Melanie Jnoes Work Phone: Start: 08-15-2023 Plain chest X-ray Dr. Melanie Jones Work Phone: Start: 08-14-2023 Plain chest X-ray Dr. Melanie Jones Work Phone: Start: 08-14-[address] Aleksandar Jones Work Phone: Start: 05-26-2023 Myocardial spect mul tiple studies Radha Batista PLOW MECHANIC.PRINTING MECHANIST Work Phone: Start: 04-30-2023 CT of chest Start: 04-18-2022 CT of chest Start: 01-14-2022 Adult depression scr eening assessment Aleksandar Jones MD Work Phone: Start: 07-19-2021 Radiologic exam ches t 2 views Aleksandar Jones MD Work Phone: Start: 06-27-2021 Mammography Aleksandar Anaya MD Work Phone: Start: 10-18-2020 Radiologic exam ches t 2 views Maria L Cedeno PLOW MECHANIC.PRINTING MECHANIST Work Phone: Start: 08-05-2019 Adult depression scr eening assessment Aleksandar Jones MD Work Phone: Start: 12-19-2016 Colonoscopy Aleksandar Anaya MD Work Phone: Viral antigen assay Plan of Treatment Date Care Activity Detail Author Start: 06-23-2035 Screening for malignant neoplasm of colon [facility] Start: 07-18-2028 Urine microalbumin profile DTaP,Tdap,Td Vaccine (3 - Td or Tdap) [facility] Start: 12-19-2026 Colonoscopy COLONOSCOPY [facility] Start: 12-19-2026 COLORECTAL CANCER SCREENING COLORECTAL CANCER SCREENING [facility] Start: 12-19-2026 Screening for malignant neoplasm of colon [facility] Start: 06-28-2026 Annual PCP Team Chronic Disease Visit Annual PCP Team Chronic Disease Visit [facility] Start: 06-28-2026 Shingrix Vaccine (2 of 2) Shingrix Vaccine (2 of 2) [facility] Comment on above: Postponed from 02/03/2024 (Declined at t his time) Start: 05-06-2026 Screening for malignant neoplasm of lung Lung Cancer Screening [facility] Start: 04-03-2026 End: 04-03-2026 Patient encounter procedure 04/03/2026 1:20 PM EDT Office Visit Cardiology [address] [place] [address] Fuentes Renee MD [address], [address] [place], [place] [id number] 1 year follow up Cardiology Comment on above: 1 year follow up Start: 03-29-2026 Annual PCP Team Chronic Disease Visit Annual PCP Team Chronic Disease Visit [facility] Start: 01-24-2026 HPV TESTING HPV TESTING [facility] Start: 01-24-2026 PAP TESTING PAP TESTING [facility] Start: 01-24-2026 Screening for malignant neoplasm of cervix [facility] Start: 01-19-2026 Screening for malignant neoplasm of breast Mammogram Screening [facility] Start: 01-12-2026 Annual PCP Team Chronic Disease Visit Annual PCP Team Chronic Disease Visit [facility] Start: 01-12-2026 BP Controlled (<130/80) BP Controlled (<130/80) [facility] Start: 12-28-2025 Annual PCP Team Chronic Disease Visit Annual PCP Team Chronic Disease Visit [facility] Start: 12-28-2025 BP Controlled (<130/80) BP Controlled (<130/80) [facility] in Start: 12-28-2025 HIV screening HIV Screening [facility] Comment on above: Postponed from 1981 (Declined at t his time) Start: 12-28-2025 End: 12-28-2025 Patient encounter procedure 12/28/2025 10:20 AM EDT Office Visit Family [facility] [place] [address] [place] [address] [address] Aleksandar Jones MD [address] [place] [address] physical 6 months [facility] Comment on above: physical 6 months Start: 12-26-2025 Hemoglobin A1c measurement HbA1C [facility] Start: 12-07-2025 Annual PCP Team Chronic Disease Visit Annual PCP Team Chronic Disease Visit [facility] Start: 12-07-2025 BP Controlled (<130/80) BP Controlled (<130/80) [facility] Start: 11-02-2025 Annual PCP Team Chronic Disease Visit Annual PCP Team Chronic Disease Visit [facility] Start: 11-02-2025 BP Controlled (<130/80) BP Controlled (<130/80) [facility] Start: 11-02-2025 Diabetic foot examination Diabetic Foot Exam [facility] Start: 11-02-2025 Hepatitis B surface antibody level LDL Cholesterol [facility] Start: 09-28-2025 Annual PCP Team Chronic Disease Visit Annual PCP Team Chronic Disease Visit [facility] Start: 09-28-2025 Hemoglobin A1c measurement HbA1C [facility] Start: 09-20-2025 BP Controlled (<130/80) BP Controlled (<130/80) [facility] Start: 09-08-2025 Annual PCP Team Chronic Disease Visit Annual PCP Team Chronic Disease Visit [facility] Start: 09-08-2025 BP Controlled (<130/80) BP Controlled (<130/80) [facility] Start: 07-23-2025 BP Controlled (<130/80) BP Controlled (<130/80) [facility] Start: 07-20-2025 End: 07-20-2025 Patient encounter procedure 07/20/2025 1:40 PM EDT Office Visit Family [facility] Sheppard [address] [place] [address] Aleksandar Jones MD [address] [facility] [place] [address] 6 month follow up [facility] Estela Sheppard Comment on above: 6 month follow up Start: 07-06-2025 Annual PCP Team Chronic Disease Visit Annual PCP Team Chronic Disease Visit [facility] Start: 06-28-2025 End: 09-27-2025 Basic metabolic 2000 panel - Serum or Plasma [facility] Work Phone: Comment on above: Expected: 06/28/2025, Expires: Start: 06-28-2025 End: 09-27-2025 Magnesium [Mass/volume] in Serum or Plasma [facility] Comment on above: Expected: 06/28/2025, Expires: Start: 06-28-2025 End: 09-27-2025 Natriuretic peptide.B prohormone N-Terminal [Mass/volume] in Serum or Plasma [facility] Comment on above: Expected: 06/28/2025, Expires: Start: 06-28-2025 End: 06-28-2025 Patient encounter procedure [facility] Estela Sheppard Comment on above: 6 month follow up 6 month follow up (s tatin rx not filled since August, [facility] calling) Start: 06-28-2025 End: 09-27-2025 Thyrotropin [Units/volume] in Serum or Plasma [facility] Comment on above: Expected: 06/28/2025, Expires: 5 Start: 06-23-2025 Colonoscopy w/biopsy single/multiple COLONOSCOPY AND BIOPSY [facility] Start: 06-23-2025 Endoscopy upper small intestine w/biopsy SMALL BOWEL ENDOSCOPY/BIOPSY [facility] Start: 06-23-2025 Patient discharge [facility] Start: 06-13-2025 Influenza vaccination Influenza Vaccine (#1) [facility] Start: 05-04-2025 Screening for malignant neoplasm of lung Lung Cancer Screening [facility] Start: 05-02-2025 Hemoglobin A1c measurement HbA1C [facility] Start: 04-14-2025 Annual PCP Team Chronic Disease Visit Annual PCP Team Chronic Disease Visit [facility] Start: 04-14-2025 BP Controlled (<130/80) BP Controlled (<130/80) [facility] in Start: 04-04-2025 End: 04-04-2025 Patient encounter procedure Cardiology Comment on above: 6 month check Start: 03-30-2025 Annual PCP Team Chronic Disease Visit Annual PCP Team Chronic Disease Visit [facility] Start: 03-30-2025 BP Controlled (<130/80) BP Controlled (<130/80) [facility] in Start: 03-29-2025 End: 03-29-2025 Patient encounter procedure 03/29/2025 9:00 AM EDT Office Visit [facility] [address] [place] [address] Aleksandar Jones MD [address] [place] [address] 2 month follow up [facility] Comment on above: 2 month follow up Start: 03-19-2025 Annual PCP Team Chronic Disease Visit Annual PCP Team Chronic Disease Visit [facility] Start: 03-18-2025 End: 03-18-2025 Patient encounter procedure 03/18/2025 8:40 AM EDT Office Visit Family [facility] [place] [address] [place] [address] Radha Batista APRN.PRINTING MECHANIST [address] [place] [address] 2 month follow up Family [facility] Comment on above: 2 month follow up Start: 03-14-2025 End: 03-14-2025 Patient encounter procedure 03/14/2025 9:00 AM EDT Office Visit [facility] [place] [address] [place] [address] Aleksandar Jones MD [address] [place] [address] 2 month follow up Family [facility] Comment on above: 2 month follow up Start: 03-02-2025 Annual PCP Team Chronic Disease Visit Annual PCP Team Chronic Disease Visit [facility] Start: 03-02-2025 BP Controlled (<130/80) BP Controlled (<130/80) [facility] in Start: 02-11-2025 End: 05-13-2025 Hepatitis B virus core Ab [Presence] in Serum HEPATITIS B CORE ANTIBODY TOTAL Lab Routine Hepatitis B core antibody positive Expected: 02/11/2025, Expires: 05/13/2025 [facility] Comment on above: Expected: 02/11/2025, Expires: Start: 02-11-2025 End: 05-13-2025 Hepatitis B virus core IgM Ab [Presence] in Serum HEPATITIS B CORE ANTIBODY IGM Lab Routine Hepatitis B core antibody positive Expected: 02/11/2025, Expires: 05/13/2025 [facility] Comment on above: Expected: 02/11/2025, Expires: Start: 02-11-2025 End: 05-13-2025 Hepatitis B virus DNA [Units/volume] in Serum HEPATITIS B VIRUS (HBV) DNA, QUANTITATIVE PCR, PLASMA/SERUM Lab Routine Hepatitis B core antibody positive Expected: 02/11/2025, Expires: 05/13/2025 [facility] Work Phone: Comment on above: Expected: 02/11/2025, Expires: Start: 02-11-2025 End: 05-13-2025 Hepatitis B virus surface Ab [Presence] in Serum HEPATITIS B SURFACE ANTIBODY Lab Routine Hepatitis B core antibody positive Expected: 02/11/2025, Expires: 05/13/2025 [facility] Comment on above: Expected: 02/11/2025, Expires: Start: 02-11-2025 End: 05-13-2025 Hepatitis B virus surface Ag [Presence] in Serum HEPATITIS B SURFACE ANTIGEN Lab Routine Hepatitis B core antibody positive Expected: 02/11/2025, Expires: 05/13/2025 [facility] Comment on above: Expected: 02/11/2025, Expires: Start: 02-04-2025 BP Controlled (<130/80) BP Controlled (<130/80) [facility] Start: 01-20-2025 BP Controlled (<130/80) BP Controlled (<130/80) [facility] Start: 01-19-2025 End: 01-19-2025 Patient encounter procedure 01/19/2025 2:20 PM EDT Appointment Mammogram [address] [place] [address] Encounter for screening mammogram for breast cancer [Z12.31] Mammogram Comment on above: Encounter for screening mammogram for br east cancer [Z12.31] Start: 01-18-2025 End: 02-03-2026 US Abdomen RUQ US ABD RIGHT UPPER QUADRANT Radiology Routine Elevated liver enzymes Expected: 01/18/2025, Expires: 02/03/2026 [facility] Work Phone: Comment on above: Expected: 01/18/2025, Expires: Start: 01-18-2025 End: 01-18-2025 Patient encounter procedure 01/18/2025 10:00 AM EDT Appointment Radiology [address] [place] [address] Elevated liver enzymes [R74.8] Radiology Comment on above: Elevated liver enzymes [R74.8] Start: 01-14-2025 End: 04-15-2025 Comprehensive metabolic 2000 panel - Serum or Plasma COMPREHENSIVE METABOLIC PANEL Lab Routine Liver function test abnormality Hyponatremia Expected: 01/14/2025, Expires: 04/15/2025 [facility] Work Phone: Comment on above: Expected: 01/14/2025, Expires: Start: 01-12-2025 Annual PCP Team Chronic Disease Visit Annual PCP Team Chronic Disease Visit [facility] Start: 01-12-2025 End: 04-13-2025 Comprehensive metabolic 2000 panel - Serum or Plasma COMPREHENSIVE METABOLIC PANEL Lab Routine Liver function test abnormality Acute diastolic CHF (congestive heart failure) (HCC) Expected: 01/12/2025, Expires: 04/13/2025 [facility] Work Phone: Comment on above: Expected: 01/12/2025, Expires: Start: 01-12-2025 End: 01-12-2025 Patient encounter procedure 01/12/2025 10:00 AM EDT Office Visit [facility] [place] [address] [facility] [place] [address] Aleksandar Jones MD [address] [facility] [place] [place] [address] follow up low sodium [facility] Comment on above: follow up low sodium Start: 01-07-2025 End: 01-07-2025 Patient encounter procedure 01/07/2025 1:30 PM EDT Appointment Mammogram [address] [place] [address] Encounter for screening mammogram for breast cancer [Z12.31] Mammogram Comment on above: Encounter for screening mammogram for br east cancer [Z12.31] Start: 01-04-2025 End: 04-05-2025 Basic metabolic 2000 panel - Serum or Plasma BASIC METABOLIC PANEL Lab Routine Hyponatremia Expected: 01/04/2025, Expires: 04/05/2025 [facility] Work Phone: Comment on above: Expected: 01/04/2025, Expires: Start: 01-04-2025 End: 04-05-2025 Osmolality of Urine OSMOLALITY URINE Lab Routine Hyponatremia Expected: 01/04/2025, Expires: 04/05/2025 [facility] Comment on above: Expected: 01/04/2025, Expires: Start: 01-04-2025 End: 04-05-2025 Sodium [Moles/volume] in Urine collected for unspecified duration SODIUM RANDOM URINE Lab Routine Hyponatremia Expected: 01/04/2025, Expires: 04/05/2025 [facility] Comment on above: Expected: 01/04/2025, Expires: Start: 12-31-2024 End: 04-01-2025 Basic metabolic 2000 panel - Serum or Plasma BASIC METABOLIC PANEL Lab Routine Hyponatremia Expected: 12/31/2024, Expires: 04/01/2025 [facility] Comment on above: Expected: 12/31/2024, Expires: Start: 12-31-2024 End: 04-01-2025 CBC W Auto Differential panel - Blood COMPLETE BLOOD COUNT AND DIFFERENTIAL Lab Routine Leukocytosis, unspecified type Expected: 12/31/2024, Expires: 04/01/2025 [facility] Work Phone: Comment on above: Expected: 12/31/2024, Expires: Start: 12-30-2024 End: 03-31-2025 HEP BE ANTIBODY HEP BE ANTIBODY Lab Routine Exposure to hepatitis B Expected: 12/30/2024, Expires: 03/31/2025 [facility] Comment on above: Expected: 12/30/2024, Expires: Start: 12-30-2024 End: 03-31-2025 Hepatitis B virus core Ab [Presence] in Serum HEPATITIS B CORE ANTIBODY TOTAL Lab Routine Exposure to hepatitis B Expected: 12/30/2024, Expires: 03/31/2025 [facility] Comment on above: Expected: 12/30/2024, Expires: Start: 12-30-2024 End: 03-31-2025 Hepatitis B virus core IgM Ab [Presence] in Serum HEPATITIS B CORE ANTIBODY IGM Lab Routine Exposure to hepatitis B Expected: 12/30/2024, Expires: 03/31/2025 [facility] Comment on above: Expected: 12/30/2024, Expires: Start: 12-30-2024 End: 03-31-2025 Hepatitis B virus DNA [Units/volume] in Serum HEPATITIS B VIRUS (HBV) DNA, QUANTITATIVE PCR, PLASMA/SERUM Lab Routine Exposure to hepatitis B Expected: 12/30/2024, Expires: 03/31/2025 [facility] Work Phone: Comment on above: Expected: 12/30/2024, Expires: Start: 12-30-2024 End: 03-31-2025 Hepatitis B virus e Ag [Presence] in Serum or Plasma by Immunoassay HEP BE ANTIGEN Lab Routine Exposure to hepatitis B Expected: 12/30/2024, Expires: 03/31/2025 [facility] Comment on above: Expected: 12/30/2024, Expires: Start: 12-30-2024 End: 03-31-2025 Hepatitis B virus surface Ab [Presence] in Serum HEPATITIS B SURFACE ANTIBODY Lab Routine Exposure to hepatitis B Expected: 12/30/2024, Expires: 03/31/2025 [facility] Comment on above: Expected: 12/30/2024, Expires: Start: 12-30-2024 End: 03-31-2025 Hepatitis B virus surface Ag [Presence] in Serum HEPATITIS B SURFACE ANTIGEN Lab Routine Exposure to hepatitis B Expected: 12/30/2024, Expires: 03/31/2025 [facility] Comment on above: Expected: 12/30/2024, Expires: 5 Start: 12-28-2024 End: 12-28-2025 HEP ACUTE PANEL/RNA [facility] Comment on above: Expected: 12/28/2024, Expires: Start: 12-28-2024 End: 12-28-2025 Hepatic function 2000 panel - Serum or Plasma [facility] Work Phone: Comment on above: Expected: 12/28/2024, Expires: Start: 12-28-2024 End: 12-28-2024 Patient encounter procedure [facility] Comment on above: 3 month follow up Annual/2-4 week foll ow up Start: 12-21-2024 Bacteria identified in Blood by Culture Blood Culture [facility] Start: 12-21-2024 Bacteria identified in Urine by Culture Urine Culture [facility] Start: 12-21-2024 [facility] Start: 12-21-2024 End: 12-21-2024 [facility] Start: 12-07-2024 End: 12-07-2024 Patient encounter procedure 12/07/2024 10:00 AM EST Office Visit [facility] [place] [address] [place], [place] [address] Radha Batista APRN.PRINTING MECHANIST [address] [place], [place] [address] 1 month follow up [facility] Comment on above: 1 month follow up Start: 12-01-2024 End: 12-01-2024 Patient encounter procedure 12/01/2024 12:30 PM EST Office Visit Vasculary Surgery [address] [place] [address] Weakness of both lower extremities [R29.898] [facility] Comment on above: Weakness of both lower extremities [R29. 898] Start: 11-26-2024 End: 11-26-2024 Patient encounter procedure 11/26/2024 8:00 AM EST Office Visit [facility] [address] [place] [address] Weakness of both lower extremities [R29.898] [facility] Comment on above: Weakness of both lower extremities [R29. 898] Start: 11-17-2024 Glaucoma screening Dilated Retinal Exam [facility] Start: 11-12-2024 Patient discharge [facility] Start: 11-11-2024 [facility] Start: 11-11-2024 Physiotherapy of chest [facility] Start: 11-10-2024 Care planning and problem solving actions [facility] Start: 11-10-2024 Aspiration precautions [facility] Start: 11-10-2024 Assessment of risk of venous thromboembolism [facility] Start: 11-10-2024 Care regimes management [facility] Start: 11-10-2024 Continuous positive airway pressure ventilation treatment [facility] Start: 11-10-2024 Insertion of catheter into peripheral vein [facility] Start: 11-10-2024 Measuring intake and output [facility] Start: 11-10-2024 Notification of physician [facility] Start: 11-10-2024 Oxygen therapy [facility] Start: 11-10-2024 Providing care according to standard [facility] Start: 11-10-2024 Provision of activity privileges [facility] Start: 11-10-2024 Referral to service [facility] Start: 11-10-2024 End: 11-10-2024 [facility] Start: 11-10-2024 Respiratory secretion precautions [facility] Start: 11-10-2024 Following clinical pathway protocol [facility] Start: 11-10-2024 Inhalation therapy procedure [facility] Start: 11-09-2024 Admission procedure [facility] Start: 11-09-2024 End: 02-08-2025 INFLUENZA A&B MOLECULAR (POC) INFLUENZA A&B MOLECULAR (POC) Microbiology Routine URI, acute Expected: 11/09/2024, Expires: 02/08/2025 [facility] Work Phone: Comment on above: Expected: 11/09/2024, Expires: Start: 11-05-2024 Annual PCP Team Chronic Disease Visit Annual PCP Team Chronic Disease Visit [facility] Start: 11-05-2024 End: 02-04-2025 Basic metabolic 2000 panel - Serum or Plasma BASIC METABOLIC PANEL Lab Routine Hyponatremia Expected: 11/05/2024, Expires: 02/04/2025 [facility] Work Phone: Comment on above: Expected: 11/05/2024, Expires: Start: 11-05-2024 BP Controlled (<130/80) BP Controlled (<130/80) [facility] in Start: 11-05-2024 End: 02-04-2025 CBC W Auto Differential panel - Blood COMPLETE BLOOD COUNT AND DIFFERENTIAL Lab Routine Hyponatremia Expected: 11/05/2024, Expires: 02/04/2025 [facility] Comment on above: Expected: 11/05/2024, Expires: Start: 11-05-2024 Hepatitis B surface antibody level LDL Cholesterol [facility] Start: 11-02-2024 End: 02-01-2025 Aldolase [Enzymatic activity/volume] in Serum or Plasma [facility] Comment on above: Expected: 11/02/2024, Expires: Start: 11-02-2024 End: 02-01-2025 CBC W Auto Differential panel - Blood [facility] Comment on above: Expected: 11/02/2024, Expires: Start: 11-02-2024 End: 02-01-2025 Comprehensive metabolic 2000 panel - Serum or Plasma [facility] Comment on above: Expected: 11/02/2024, Expires: Start: 11-02-2024 End: 02-01-2025 Creatine kinase [Enzymatic activity/volume] in Serum or Plasma [facility] Comment on above: Expected: 11/02/2024, Expires: Start: 11-02-2024 End: 02-01-2025 Hemoglobin A1c in Blood [facility] Work Phone: Comment on above: Expected: 11/02/2024, Expires: Start: 11-02-2024 End: 02-01-2025 LIPID PANEL, NONFASTING [facility] Comment on above: Expected: 11/02/2024, Expires: Start: 10-14-2024 [facility] Start: 10-13-2024 Medicare Advantage Annual Wellness Visit Medicare [facility] Annual Wellness Visit [facility] Start: 09-28-2024 End: 09-28-2024 Patient encounter procedure 09/28/2024 1:00 PM EST Office Visit [facility] [place] [address] [place] [address] Radha Batista APRN.PRINTING MECHANIST [address] [place], [place] [id number] 3 month follow up [facility] Comment on above: 3 month follow up Start: 09-22-2024 BP Controlled (<130/80) BP Controlled (<130/80) [facility] Start: 09-20-2024 End: 09-20-2024 Patient encounter procedure Cardiology Comment on above: 1 yr follow up 3 month follow up Start: 09-19-2024 Annual PCP Team Chronic Disease Visit Annual PCP Team Chronic Disease Visit [facility] Start: 09-07-2024 End: 09-07-2024 Patient encounter procedure 09/07/2024 10:00 AM EST Office Visit [facility] [place] [address] [place] [address] Shelia Salmon PLOW MECHANIC.PRINTING MECHANIST [address] [place], [place] [id number] 2 week f/u [facility] Comment on above: 2 week f/u Start: 09-02-2024 Hemoglobin A1c measurement HbA1C [facility] Start: 07-06-2024 End: 10-05-2024 25-hydroxyvitamin D3 [Mass/volume] in Serum or Plasma VITAMIN D 25 HYDROXY Lab Routine Vitamin D deficiency Expected: 07/06/2024, Expires: 10/05/2024 [facility] Comment on above: Expected: 07/06/2024, Expires: Start: 07-06-2024 End: 10-05-2024 CBC W Auto Differential panel - Blood COMPLETE BLOOD COUNT AND DIFFERENTIAL Lab Routine Fatigue, unspecified type Expected: 07/06/2024, Expires: 10/05/2024 [facility] Work Phone: Comment on above: Expected: 07/06/2024, Expires: Start: 07-06-2024 End: 10-05-2024 Comprehensive metabolic 2000 panel - Serum or Plasma COMPREHENSIVE METABOLIC PANEL Lab Routine Uncontrolled type 2 diabetes mellitus with hyperglycemia (HCC) Fatigue, unspecified type Primary hypertension Pure hypercholesterolemia Expected: 07/06/2024, Expires: 10/05/2024 [facility] Comment on above: Expected: 07/06/2024, Expires: Start: 07-06-2024 End: 10-05-2024 Hemoglobin A1c in Blood HEMOGLOBIN A1C Lab Routine Uncontrolled type 2 diabetes mellitus with hyperglycemia (HCC) Expected: 07/06/2024, Expires: 10/05/2024 [facility] Comment on above: Expected: 07/06/2024, Expires: Start: 07-06-2024 End: 10-05-2024 Lipid 1996 panel - Serum or Plasma LIPID PANEL BASIC Lab Routine Pure hypercholesterolemia Expected: 07/06/2024, Expires: 10/05/2024 [facility] Comment on above: Expected: 07/06/2024, Expires: Start: 07-06-2024 End: 10-05-2024 Thyrotropin [Units/volume] in Serum or Plasma THYROID STIMULATING HORMONE Lab Routine Fatigue, unspecified type Expected: 07/06/2024, Expires: 10/05/2024 [facility] Comment on above: Expected: 07/06/2024, Expires: Start: 06-30-2024 End: 06-30-2024 Patient encounter procedure 06/30/2024 8:40 AM EDT Office Visit [facility] [place] [address] [facility] [place] [address] Radha Batista APRN.PRINTING MECHANIST [address] [place] [address] 3 month follow up [facility] [place] Comment on above: 3 month follow up Start: 06-13-2024 Influenza vaccination Influenza Vaccine (#1) [facility] Start: 05-05-2024 Hemoglobin A1c measurement HbA1C [facility] Start: 05-04-2024 End: 05-04-2024 Patient encounter procedure 05/04/2024 9:00 AM EDT Office Visit [facility] [place] [address] [place] [address] Radha Batista APRN.PRINTING MECHANIST [address] [place] [address] 6 month follow up Family [facility] Comment on above: 6 month follow up Start: 04-29-2024 ANNUAL PCP TEAM CHRONIC DISEASE VISIT ANNUAL PCP TEAM CHRONIC DISEASE VISIT [facility] Start: 04-29-2024 Hepatitis B surface antibody level LDL CHOLESTEROL [facility] Start: 04-01-2024 End: 04-01-2024 ambulatory 04/01/2024 10:00 AM EDT OT/PT/Speech Visit [facility] [address] [place] [address] Long Davis, PT [address] [place] [address] R29.898 (ICD-10-CM) - Leg weakness, bilateral [facility] Comment on above: R29.898 (ICD-10-CM) - Leg weakness, bila teral Start: 03-30-2024 End: 03-30-2024 ambulatory 03/30/2024 11:30 AM EDT OT/PT/Speech Visit [facility] [address] [place] [address] Long Davis, PT [address] [place] [address] R29.898 (ICD-10-CM) - Leg weakness, bilateral [facility] Comment on above: R29.898 (ICD-10-CM) - Leg weakness, bila teral Start: 03-30-2024 End: 03-30-2024 Patient encounter procedure 03/30/2024 8:40 AM EDT Office Visit Family [facility] [place] [address] [facility] [place] [address] Radha Batista APRN.PRINTING MECHANIST [address] [place] [address] Medication Review [facility] Comment on above: Medication Review Start: 03-25-2024 End: 03-25-2024 ambulatory 03/25/2024 11:45 AM EDT OT/PT/Speech Visit [facility] [address] [place] [address] Jaci Brady, STOCKROOM KEEPER [address] [place] [address] R29.898 (ICD-10-CM) - Leg weakness, bilateral [facility] Comment on above: R29.898 (ICD-10-CM) - Leg weakness, bila teral Start: 03-23-2024 End: 03-23-2024 ambulatory 03/23/2024 10:45 AM EDT OT/PT/Speech Visit [facility] [address] [place] [address] Long Davis, PT [address] [place] [address] R29.898 (ICD-10-CM) - Leg weakness, bilateral [facility] Comment on above: R29.898 (ICD-10-CM) - Leg weakness, bila teral Start: 03-19-2024 End: 03-19-2024 Patient encounter procedure 03/19/2024 8:40 AM EDT Office Visit [facility] [place] [address] [facility] [place] [address] Radha Batista, ADIEL.PRINTING MECHANIST [address] [place] [address] Anxiety/ weakness in legs. [facility] Comment on above: Anxiety/ weakness in legs. Start: 03-18-2024 End: 03-18-2024 ambulatory 03/18/2024 11:45 AM EDT OT/PT/Speech Visit [facility] [address] [place] [address] Jaci Brady, STOCKROOM KEEPER [address] [place] [address] R29.898 (ICD-10-CM) - Leg weakness, bilateral [facility] Comment on above: R29.898 (ICD-10-CM) - Leg weakness, bila teral Start: 03-16-2024 End: 03-16-2024 ambulatory 03/16/2024 11:30 AM EDT OT/PT/Speech Visit [facility] [address] [place] [address] Long Davis, PT [address] [place] [address] R29.898 (ICD-10-CM) - Leg weakness, bilateral [facility] Comment on above: R29.898 (ICD-10-CM) - Leg weakness, bila teral Start: 03-05-2024 End: 06-04-2024 CBC W Auto Differential panel - Blood COMPLETE BLOOD COUNT AND DIFFERENTIAL Lab Routine Thrombocytopenia (HCC) Expected: 03/05/2024, Expires: 06/04/2024 [facility] Work Phone: Comment on above: Expected: 03/05/2024, Expires: Start: 03-05-2024 End: 06-04-2024 Hepatic function 2000 panel - Serum or Plasma HEPATIC FUNCTION PNL Lab Routine Elevated liver enzymes Expected: 03/05/2024, Expires: 06/04/2024 [facility] Comment on above: Expected: 03/05/2024, Expires: Start: 03-04-2024 End: 03-04-2024 ambulatory 03/04/2024 11:45 AM EDT OT/PT/Speech Visit [facility] [address] [place] [address] Jaci Brady, STOCKROOM KEEPER [address] [place] [address] R29.898 (ICD-10-CM) - Leg weakness, bilateral [facility] Comment on above: R29.898 (ICD-10-CM) - Leg weakness, bila teral Start: 03-02-2024 End: 03-02-2024 ambulatory 03/02/2024 2:45 PM EDT OT/PT/Speech Visit [facility] [address] [place] [address] Long Davis, PT [address] [place] [address] R29.898 (ICD-10-CM) - Leg weakness, bilateral [facility] Comment on above: R29.898 (ICD-10-CM) - Leg weakness, bila teral Start: 03-02-2024 End: 06-01-2024 Bacteria identified in Urine by Culture [facility] Work Phone: Comment on above: Expected: 03/02/2024, Expires: 4 Start: 03-02-2024 End: 03-02-2024 Patient encounter procedure 03/02/2024 8:40 AM EDT Office Visit [facility] [address] [place] [address] Radha Batista APRN.PRINTING MECHANIST [address] [place] [address] Medication Review [facility] [place] Comment on above: Medication Review Start: 02-26-2024 End: 02-26-2024 ambulatory 02/26/2024 10:00 AM EDT OT/PT/Speech Visit [facility] [address] [place] [address] Golias, Long, PT [address] [place] [address] R29.898 (ICD-10-CM) - Leg weakness, bilateral [facility] Comment on above: R29.898 (ICD-10-CM) - Leg weakness, bila teral Start: 02-24-2024 End: 02-24-2024 ambulatory 02/24/2024 11:00 AM EDT OT/PT/Speech Visit [facility] [address] [place] [address] Jaci Brady, [employer]OCKRO[employer] KEEPER [address] [place] [address] R29.898 (ICD-10-CM) - Leg weakness, bilateral [facility] Comment on above: R29.898 (ICD-10-CM) - Leg weakness, bila teral Start: 02-19-2024 End: 02-19-2024 ambulatory 02/19/2024 9:15 AM EDT OT/PT/Speech Visit [facility] [address] [place] [address] Golias, Long, PT [address] [place] [address] R29.898 (ICD-10-CM) - Leg weakness, bilateral [facility] Comment on above: R29.898 (ICD-10-CM) - Leg weakness, bila teral Start: 02-17-2024 End: 02-17-2024 ambulatory 02/17/2024 8:45 AM EDT OT/PT/Speech Visit [facility] [address] [place] [address] Jaci Brady, STOCKROOM KEEPER [address] [place] [address] R29.898 (ICD-10-CM) - Leg weakness, bilateral [facility] Comment on above: R29.898 (ICD-10-CM) - Leg weakness, bila teral Start: 02-12-2024 End: 02-12-2024 ambulatory 02/12/2024 9:30 AM EDT OT/PT/Speech Visit [facility] [address] [place] [address] Jaci Brady, STOCKROOM KEEPER [address] [place] [address] R29.898 (ICD-10-CM) - Leg weakness, bilateral [facility] Comment on above: R29.898 (ICD-10-CM) - Leg weakness, bila teral Start: 02-10-2024 End: 02-10-2024 ambulatory 02/10/2024 2:45 PM EDT OT/PT/Speech Visit [facility] [address] [place] [address] Long Davis, PT [address] [place] [address] R29.898 (ICD-10-CM) - Leg weakness, bilateral [facility] Comment on above: R29.898 (ICD-10-CM) - Leg weakness, bila teral Start: 02-05-2024 End: 02-05-2024 ambulatory 02/05/2024 8:45 AM EDT OT/PT/Speech Visit [facility] [address] [place] [address] Jaci Brady, STOCKROOM KEEPER [address] [place] [address] R29.898 (ICD-10-CM) - Leg weakness, bilateral [facility] Comment on above: R29.898 (ICD-10-CM) - Leg weakness, bila teral Start: 02-03-2024 Shingrix Vaccine (2 of 2) Shingrix Vaccine (2 of 2) [facility] Start: 12-21-2023 ANNUAL PCP TEAM CHRONIC DISEASE VISIT ANNUAL PCP TEAM CHRONIC DISEASE VISIT [facility] Start: 12-13-2023 [facility] Start: 2023 RSV Vaccine (1 - 1-dose 60+ series) RSV Vaccine (1 - 1-dose 60+ series) [facility] Start: 10-30-2023 Hemoglobin A1c/Hemoglobin.total in Blood HBA1C [facility] Start: 10-13-2023 Behavioral Health Screening Behavioral Health Screening [facility] Start: 10-13-2023 Depression Assessment Depression Assessment [facility] Start: 09-17-2023 Hepatitis C antibody, confirmatory test DILATED RETINAL EXAM [facility] Start: 08-28-2023 ANNUAL PCP TEAM CHRONIC DISEASE VISIT ANNUAL PCP TEAM CHRONIC DISEASE VISIT [facility] Start: 08-21-2023 Hepatitis B surface antibody level LDL CHOLESTEROL [facility] Start: 08-18-2023 Blood chemistry [facility] Start: 08-17-2023 Blood chemistry [facility] Start: 08-16-2023 Patient discharge [facility] Start: 08-15-2023 Following clinical pathway protocol [facility] Start: 08-14-2023 Assessment of risk of venous thromboembolism [facility] Start: 08-14-2023 Bacteria identified in Sputum by Culture [facility] Start: 08-14-2023 Care regimes management [facility] Start: 08-14-2023 Continuous positive airway pressure ventilation treatment [facility] Start: 08-14-2023 Fall prevention [facility] Start: 08-14-2023 Incentive spirometry [facility] Start: 08-14-2023 Inhalation therapy procedure [facility] Start: 08-14-2023 Insertion of catheter into peripheral vein [facility] Start: 08-14-2023 Introduction of urinary catheter [facility] Start: 08-14-2023 Measuring intake and output [facility] Start: 08-14-2023 Notification of physician [facility] Start: 08-14-2023 Oxygen therapy [facility] Start: 08-14-2023 Providing care according to standard [facility] Start: 08-14-2023 Provision of activity privileges [facility] Start: 08-14-2023 Referral to occupational therapist [facility] Start: 08-14-2023 Referral to service [facility] Start: 08-14-2023 [facility] Start: 08-14-2023 Gas panel - Arterial blood [facility] Start: 08-14-2023 Hospital admission, emergency, from emergency room, medical nature [facility] Start: 08-14-2023 Verification routine [facility] Start: 08-14-2023 Admission procedure [facility] Start: 08-14-2023 [facility] Start: 08-14-2023 Respiratory secretion precautions [facility] Start: 08-14-2023 Respiratory Panel (PCR) Respiratory Panel (PCR) [facility] Start: 06-13-2023 Covid-19 Vaccine ( season) Covid-19 Vaccine ( season) [facility] Start: 06-13-2023 Influenza vaccination [facility] Start: 04-29-2023 End: 06-29-2023 Bacteria identified in Urine by Culture [facility] Work Phone: Comment on above: Expected: 04/29/2023, Expires: 3 Start: 04-29-2023 End: 06-29-2023 Comprehensive metabolic 2000 panel - Serum or Plasma [facility] Work Phone: Comment on above: Expected: 04/29/2023, Expires: 3 Start: 04-29-2023 End: 06-29-2023 Hemoglobin A1c in Blood [facility] Work Phone: Comment on above: Expected: 04/29/2023, Expires: 3 Start: 04-29-2023 End: 06-29-2023 LIPID PANEL, NONFASTING [facility] Work Phone: Comment on above: Expected: 04/29/2023, Expires: 3 Start: 04-29-2023 End: 06-29-2023 Magnesium [Mass/volume] in Serum or Plasma [facility] Work Phone: Comment on above: Expected: 04/29/2023, Expires: 3 Start: 04-29-2023 End: 06-29-2023 Thyrotropin [Units/volume] in Serum or Plasma [facility] Work Phone: Comment on above: Expected: 04/29/2023, Expires: 3 Start: 04-29-2023 End: 06-29-2023 Thyroxine (T4) free [Mass/volume] in Serum or Plasma [facility] Work Phone: Comment on above: Expected: 04/29/2023, Expires: 3 Start: 04-29-2023 End: 06-29-2023 Urinalysis complete panel - Urine [facility] Work Phone: Comment on above: Expected: 04/29/2023, Expires: 3 Start: 04-18-2023 Influenza vaccination LUNG CANCER SCREENING [facility] Start: 04-18-2023 Screening for malignant neoplasm of lung Lung Cancer Screening [facility] Start: 03-27-2023 ANNUAL PCP TEAM CHRONIC DISEASE VISIT ANNUAL PCP TEAM CHRONIC DISEASE VISIT [facility] Start: 02-18-2023 Hemoglobin A1c/Hemoglobin.total in Blood HBA1C [facility] Start: 01-30-2023 ANNUAL PCP TEAM CHRONIC DISEASE VISIT ANNUAL PCP TEAM CHRONIC DISEASE VISIT [facility] Start: 01-14-2023 Adult depression screening assessment DEPRESSION SCREENING [facility] Start: 01-14-2023 ANNUAL PCP TEAM CHRONIC DISEASE VISIT ANNUAL PCP TEAM CHRONIC DISEASE VISIT [facility] Start: 01-13-2023 Urine microalbumin profile [facility] Start: 10-26-2022 Hepatitis C antibody, confirmatory test DILATED RETINAL EXAM [facility] Start: 10-13-2022 DEPRESSION ASSESSMENT DEPRESSION ASSESSMENT [facility] Start: 09-26-2022 ANNUAL PCP TEAM CHRONIC DISEASE VISIT ANNUAL PCP TEAM CHRONIC DISEASE VISIT [facility] Start: 08-13-2022 3 comp foot exam completed DIABETIC FOOT EXAM [facility] Start: 08-13-2022 Diabetic foot examination Diabetic Foot Exam [facility] Start: 06-27-2022 Mammography [facility] Start: 06-27-2022 Screening for malignant neoplasm of breast Mammogram Screening [facility] Start: 06-24-2022 COVID-19 VACCINE (5 - Booster for Moderna series) COVID-19 VACCINE (5 - Booster for Moderna series) [facility] Start: 06-13-2022 Influenza vaccination INFLUENZA (#1) [facility] Start: 06-05-2022 Suicide precautions [facility] Work Phone: Start: 06-05-2022 Consultation [facility] Work Phone: Start: 01-14-2022 End: 03-16-2022 ALBUMIN/CREAT RATIO RND UR ALBUMIN/CREAT RATIO RND UR Lab Routine Type 2 diabetes mellitus with diabetic nephropathy, with long-term current use of insulin (HCC) Expected: 01/14/2022, Expires: 03/16/2022 [facility] Work Phone: Comment on above: Expected: 01/14/2022, Expires: 2 Start: 01-14-2022 End: 03-16-2022 Basic metabolic 2000 panel - Serum or Plasma BASIC METABOLIC PNL Lab Routine Water intoxication Expected: 01/14/2022, Expires: 03/16/2022 [facility] Work Phone: Comment on above: Expected: 01/14/2022, Expires: 2 Start: 01-14-2022 End: 03-16-2022 Hemoglobin A1c/Hemoglobin.total in Blood HGB A1C Lab Routine Type 2 diabetes mellitus with diabetic nephropathy, with long-term current use of insulin (HCC) Expected: 01/14/2022, Expires: 03/16/2022 [facility] Work Phone: Comment on above: Expected: 01/14/2022, Expires: 2 Start: 01-14-2022 End: 03-16-2022 LIPID PANEL BASIC LIPID PANEL BASIC Lab Routine Type 2 diabetes mellitus with diabetic nephropathy, with long-term current use of insulin (HCC) Expected: 01/14/2022, Expires: 03/16/2022 [facility] Work Phone: Comment on above: Expected: 01/14/2022, Expires: 2 Start: 01-14-2022 End: 03-16-2022 VITAMIN D 25 HYDROXY VITAMIN D 25 HYDROXY Lab Routine Vitamin D deficiency Expected: 01/14/2022, Expires: 03/16/2022 [facility] Work Phone: Comment on above: Expected: 01/14/2022, Expires: 2 Start: 01-02-2022 COVID-19 VACCINE (4 - Booster for Moderna series) COVID-19 VACCINE (4 - Booster for Moderna series) [facility] Start: 11-13-2021 Influenza vaccination LUNG CANCER SCREENING [facility] Start: 10-13-2021 DEPRESSION ASSESSMENT DEPRESSION ASSESSMENT [facility] Start: 07-26-2021 Hepatitis B surface antibody level LDL CHOLESTEROL [facility] Start: 05-23-2021 Hemoglobin A1c/Hemoglobin.total in Blood HBA1C [facility] Start: 04-18-2021 3 comp foot exam completed DIABETIC FOOT EXAM [facility] Start: 08-05-2020 Adult depression screening assessment DEPRESSION SCREENING [facility] Start: 06-13-2020 Pneumococcal vaccination [facility] Start: 01-13-2019 FECAL OCCULT BLOOD FECAL OCCULT BLOOD [facility] Start: 01-13-2019 Screening for malignant neoplasm of colon Fecal Occult Blood [facility] Start: 08-08-2015 PNEUMOCOCCAL (2 - PCV) PNEUMOCOCCAL (2 - PCV) [facility] Start: 08-08-2015 Pneumococcal vaccination Pneumococcal Vaccine (2 - PCV) [facility] Start: 2013 SHINGRIX VACCINE (1 of 2) SHINGRIX VACCINE (1 of 2) [facility] Start: 2008 COLOGUARD (FIT-DNA) COLOGUARD (FIT-DNA) [facility] Start: [address] COLONOGRAPHY [facility] Start: 2008 Screening for malignant neoplasm of colon [facility] Start: 2008 SIGMOIDOSCOPY SIGMOIDOSCOPY [facility] Start: 1982 HEPATITIS B (1 of 3 - Risk 3-dose series) HEPATITIS B (1 of 3 - Risk 3-dose series) [facility] Start: 1981 Anxiety Screening Anxiety Screening [facility] Start: 1981 BP Controlled (<130/80) BP Controlled (<130/80) [facility] Start: 1981 Depression Screening Depression Screening [facility] Start: 1981 HIV SCREENING HIV SCREENING [facility] Start: 1981 HIV screening HIV Screening [facility] Start: 1981 SPIROMETRY SPIROMETRY [facility] Start: 1963 HEPATITIS B (1 of 3 - 3-dose series) HEPATITIS B (1 of 3 - 3-dose series) [facility] BACTERIAL VAGINOSIS NAAT BACTERIAL VAGINOSIS NAAT Lab Routine Itching in the vaginal area 08/29/2023 3:29 PM EST [facility] Work Phone: DIONICIO/TRICHOMONAS NAAT DIONICIO/TRICHOMONAS NAAT Lab Routine Itching in the vaginal area 08/29/2023 3:29 PM EST [facility] Work Phone: CBC W Auto Different ial panel - Blood CBC + DIFF Lab Routine Weight loss 04/29/2023 3:51 PM EDT [facility] Work Phone: End: 07-23-2025 DBT Breast - bilateral screening [facility]CRE[facility]iology Routine Encounter for screening mammogram for breast cancer 1 Occurrences starting 06/23/2024 until 07/23/2025 [facility] Work Phone: Comment on above: 1 Occurrences starting 06/23/2024 until 07/23/2025 DBT Breast - bilater al screening [facility] Radiology Routine Encounter for screening mammogram for breast cancer 01/19/2025 2:51 PM EDT [facility] Work Phone: End: 04-29-2024 ECG COMPLETE ECG COMPLETE ECG Routine Chest pain, unspecified type 1 Occurrences starting 04/29/2023 until 04/29/2024 [facility] Work Phone: Comment on above: 1 Occurrences starting 04/29/2023 until 04/29/2024 ECG COMPLETE ECG COMPLETE ECG Routine Primary hypertension Pure hypercholesterolemia SVT (supraventricular tachycardia) (HCC) Tachycardia 09/20/2024 12:57 PM EST [facility] Work Phone: Hemoglobin.gastroint est inal.lower [Presence] in Stool by Immunoassay FECAL OCCULT BLOOD TEST Lab Routine Weight loss Ordered: 04/29/2023 [facility] Work Phone: Comment on above: Ordered: 04/29/2023 End: 08-14-2024 FRANNY SCREENING [facility] Radiology Routine Encounter for screening mammogram for breast cancer 1 Occurrences starting 07/16/2023 until 08/14/2024 [facility] Work Phone: Comment on above: 1 Occurrences starting 07/16/2023 until 08/14/2024 NM CARDIAC PERF STRESS/PHARM NM CARDIAC PERF STRESS/PHARM Radiology Routine Chest pain, unspecified type Ordered: 04/29/2023 [facility] Work Phone: Comment on above: Ordered: 04/29/2023 Patient Education [facility] Work Phone: Patient referral [facility] Work Phone: Respiratory pathogen s DNA and RNA panel - Respiratory specimen by LUIS M with probe detection [facility] End: 09-06-2023 Screening mammography bi 2-view breast inc cad [facility]CRE[facility] Radiology Routine Encounter for screening mammogram for breast cancer 1 Occurrences starting 08/07/2022 until 09/06/2023 [facility] Work Phone: Comment on above: 1 Occurrences starting 08/07/2022 until 09/06/2023 Urine culture [facility] End: 11-02-2025 US.doppler Extremity arteries - bilateral for physiologic artery study PVR ANK PRESS [facility] Vascular Lab Routine Weakness of both lower extremities 1 Occurrences starting 11/02/2024 until 11/02/2025 [facility] Comment on above: 1 Occurrences starting 11/02/2024 until 11/02/2025 [facility] Immunizations Immunization Date Immunization Notes Care Provider Rayna oconnell 06-28-2025 influenza, seasonal, injectable, preservative free Aleksandar Jones MD Work Phone: [facility] 09-08-2024 pneumococcal conjuga te (PCV20) vaccine, 20 valent (PREVNAR 20) Radha Batista PLOW MECHANIC.PRINTING MECHANIST Work Phone: [facility] 09-08-2024 pneumococcal Conjuga te, unspecified formulation Radha Batista PLOW MECHANIC.PRINTING MECHANIST Work Phone: [facility] Work Phone: 07-06-2024 COVID-19 vaccine, ag e 12+ yr (PFIZER-BIONTECH) Radha Batista PLOW MECHANIC.PRINTING MECHANIST Work Phone: [facility] 07-06-2024 influenza, seasonal, injectable Radha Batista PLOW MECHANIC.PRINTING MECHANIST Work Phone: [facility] 07-06-2024 influenza virus vaccine, unspecified formulation Aleksandar Jones MD Work Phone: [facility] 12-09-2023 respiratory syncytia l virus (RSV) vaccine, bivalent (ABRYSVO) Radha Batista PLOW MECHANIC.PRINTING MECHANIST Work Phone: [facility] 12-09-2023 zoster vaccine recombinant Radha Batista PLOW MECHANIC.PRINTING MECHANIST Work Phone: [facility] 11-05-2023 COVID-19 vaccine, ag e 12+ yr, season (PFIZER-BIONTECH) Meredith Moore PLOW MECHANIC.PRINTING MECHANIST Work Phone: [facility] 11-05-2023 influenza, injectabl e, quadrivalent, contains preservative Meredith Moore PLOW MECHANIC.PRINTING MECHANIST Work Phone: [facility] 11-05-2023 influenza virus vaccine, unspecified formulation Radha Batista PLOW MECHANIC.PRINTING MECHANIST Work Phone: [facility] 08-22-2022 influenza, injectabl e, quadrivalent, preservative free Adriano Menezes PLOW MECHANIC.PRINTING MECHANIST Work Phone: [facility] 08-22-2022 influenza virus vaccine, unspecified formulation Fuentes Renee MD Work Phone: [facility] 06-29-2021 influenza, injectabl e, quadrivalent, contains preservative Aleksandar Jones MD Work Phone: [facility] 11-29-2020 COVID-19 vaccine, fu ll dose (MODERNA) Aleksandar Jones MD Work Phone: [facility] 11-01-2020 COVID-19 vaccine, fu ll dose (MODERNA) Aleksandar Jones MD Work Phone: [facility] 07-19-2020 influenza, injectabl e, quadrivalent, contains preservative Aleksandar Jones MD Work Phone: [facility] 10-18-2019 Influenza virus vaccine [facility] 10-18-2019 influenza, injectabl e, quadrivalent, contains preservative Aleksandar Jones MD Work Phone: [facility] Work Phone: 06-13-2019 influenza, seasonal, injectable Adriano Pendlebury PLOW MECHANIC.PRINTING MECHANIST Work Phone: [facility] 06-13-2019 pneumococcal polysaccharide vaccine, 23 valent Radha Haagen PLOW MECHANIC.PRINTING MECHANIST Work Phone: [facility] 07-18-2018 tetanus toxoid, redu regino diphtheria toxoid, and acellular pertussis vaccine, adsorbed [facility] 07-17-2018 Influenza virus vaccine [facility] 07-17-2018 influenza, injectabl e, quadrivalent, contains preservative Aleksandar Jones MD Work Phone: [facility] 08-18-2017 tuberculin skin test ; purified protein derivative solution, intradermal Aleksandar Jones MD Work Phone: [facility] 08-11-2017 tuberculin skin test ; purified protein derivative solution, intradermal Aleksandar Jones MD Work Phone: [facility] 07-14-2017 Influenza virus vaccine [facility] 07-14-2017 influenza, seasonal, injectable, preservative free Adriano Pendlebury PLOW MECHANIC.PRINTING MECHANIST Work Phone: [facility] 06-23-2017 influenza, injectabl e, quadrivalent, preservative free Adriano Pendlebury PLOW MECHANIC.PRINTING MECHANIST Work Phone: [facility] 07-04-2016 influenza, injectabl e, quadrivalent, contains preservative Aleksandar Jones MD Work Phone: [facility] 07-14-2015 influenza, injectabl e, quadrivalent, preservative free Adriano Pendlebury PLOW MECHANIC.PRINTING MECHANIST Work Phone: [facility] 07-11-2015 influenza, injectabl e, quadrivalent, preservative free [facility] 07-11-2015 influenza, seasonal, injectable [facility] 07-11-2015 influenza, seasonal, injectable, preservative free Adriano Pendlebury PLOW MECHANIC.PRINTING MECHANIST Work Phone: [facility] 08-15-2014 Influenza virus vaccine [facility] 08-15-2014 influenza, seasonal, injectable, preservative free Adriano Pendlebury PLOW MECHANIC.PRINTING MECHANIST Work Phone: [facility] 08-15-2014 Pneumococcal Vaccine [facility] Work Phone: 08-15-2014 pneumococcal vaccine , unspecified formulation [facility] 08-08-2014 pneumococcal polysaccharide vaccine, 23 valent Aleksandar Jones MD Work Phone: [facility] 07-27-2014 influenza, seasonal, injectable Aleksandar Jones MD Work Phone: [facility] Work Phone: 01-13-2013 tetanus toxoid, redu regino diphtheria toxoid, and acellular pertussis vaccine, adsorbed Aleksandar Jones MD Work Phone: [facility] Work Phone: 08-05-2011 influenza virus vaccine, unspecified formulation Aleksandar Jones MD Work Phone: [facility] Work Phone: 08-22-2010 influenza virus vaccine, unspecified formulation Aleksandar Jones MD Work Phone: [facility] Work Phone: 1965 influenza, seasonal, injectable Aleksandar Jones MD Work Phone: [facility] Payers Date Payer Category Payer Unknown [id number] 2024 Unknown [id number] 2024 Self-pay [id number] 2024 Medicare (Managed Care) [id number]. [id number] 2024 Unknown [id number] 2020 Medicaid [id number] 2020 Medicare [id number] 2017 Medicaid [id number] 2016 Medicare [id number] 1990 Medicare [id number] 1989 Medicare [id number] Unknown [id number] Unknown [id number] 2.16.8 40.1.000581.3.579.2.462 Unknown [id number] 2.16.8 40.1.283778.3.579.2.462 Unknown [id number] 2.16.8 40.1.968949.3.579.2.462 Unknown [id number] 2.16.8 40.1.002540.3.579.2.462 Unknown [id number] 2.16.8 40.1.599128.3.579.2.462 Unknown [id number] 2.16.8 40.1.622990.3.579.2.462 Unknown [id number] 2.16.8 40.1.602657.3.579.2.462 Unknown [id number] 2.16.8 40.1.007063.3.579.2.462 Unknown [id number] 2.16.8 40.1.821740.3.579.2.462 Unknown [id number] 2.16.8 40.1.644038.3.579.2.462 Unknown [id number] 2.16.8 40.1.143988.3.579.2.462 Unknown [id number] 2.16.8 40.1.516211.3.579.2.462 Unknown [id number] 2.16.8 40.1.775068.3.579.2.462 Unknown [id number] 2.16.8 40.1.805739.3.579.2.462 Unknown [id number] 2.16.8 40.1.569950.3.579.2.462 Unknown [id number] 2.16.8 40.1.277947.3.579.2.462 Unknown [id number] 2.16.8 40.1.745544.3.579.2.462 Unknown [id number] 2.16.8 40.1.659293.3.579.2.462 Unknown [id number] 2.16.8 40.1.255884.3.579.2.462 Unknown [id number] 2.16.8 40.1.707119.3.579.2.462 Unknown [id number] 2.16.8 40.1.719500.3.579.2.462 Unknown [id number] 2.16.8 40.1.802839.3.579.2.462 Unknown [id number] 2.16.8 40.1.178842.3.579.2.462 Unknown [id number] 2.16.8 40.1.691308.3.579.2.462 Unknown [id number] 2.16.8 40.1.849597.3.579.2.462 Unknown [id number] 2.16.8 40.1.533707.3.579.2.462 Unknown [id number] 2.16.8 40.1.569066.3.579.2.462 Social History Date Type Detail Facility Start: 07-30-2021 End: 12-13-2023 Tobacco smoking status [facility] Unknown if ever smoked [facility] Start: 11-16-[address] [facility] Start: 11-16-[address] [facility] Start: 09-10-2020 Non-smoker [facility] Start: 1965 Sex Assigned At Female [facility] [facility] Start: 01-25-2014 End: 06-21-2025 Tobacco smoking status SDIS Ex-smoker [facility] Start: 01-11-1994 End: 01-11-2014 History of tobacco use Current smoker [facility] Start: 01-11-1994 End: 01-11-2014 History of tobacco use Cigarette Smoker [facility] Start: 01-25-2014 End: 03-12-2023 Cigarettes smoked current (pack per day) - Reported 2 [facility] Start: 01-25-2014 End: 07-06-2024 Tobacco use and exposure Smokeless tobacco non-user [facility] Start: 09-26-2021 End: 06-23-2025 Alcohol intake Current non-drinker of alcohol (finding) [facility] Start: 06-19-2018 History SDOH Alcohol Frequency 1 [facility] Start: 06-26-2018 History SDOH Social Connections Phone 5 [facility] Start: 06-26-2018 History SDOH Social Connections Get Together 3 [facility] Start: 06-26-2018 History SDOH Social Connections Living 7 [facility] Start: 06-26-2018 History SDOH Physica l Activity DPW 4 [facility] Start: 06-19-2018 End: 06-26-2018 History SDOH Physical Activity MPS 2 [facility] Start: 06-26-2018 Education 13 [facility] Start: 1965 Sex Assigned At Not on file [facility] Start: 09-18-2020 End: 08-08-2022 Exposure to SARS-CoV-2 (event) Not sure [facility] Start: 06-26-2018 End: 03-12-2023 Social connection and isolation panel [facility] Start: 09-13-2012 Attends [employer] Not on file [facility] Are you now , , , , never or living with a partner? Never [facility] How often to you hav e a drink containing alcohol? Never [facility] Do you feel stress - tense, restless, nervous, or anxious, or unable to sleep at night because your mind is troubled all the time - these days [OSQ] Only a little [facility] (I/We) worried whevivi er (my/our) food would run out before (I/we) got money to buy more. Never true [facility] Start: 12-21-2024 End: 01-10-2025 Sex Female (finding) [facility] Medical Equipment Procedure Code Equipment Code Equipment Original Text Equipment Identifier Dates [id number], [id number], [id number], [id number], [id number], [id number], [id number], [id number], [id number], [id number], [id number], [id number], [id number], [id number], [id number], [id number], [id number] Start: 01-23-2015 End: 06-09-2024 Comment on above: [...] from the original. 04/27/18 A1C 7.5 at [facility] Personal health goal Comment on above: Formatting of this n ote might be different from the original. 04/27/18 A1C 7.5 at [facility] Functional Status Date Assessment Result Facility 11-12-2024 Functional status Bedrest [facility] Work Phone: 08-16-2023 Functional status Activity Abili ty Independent [facility] Work Phone: 08-15-2023 Functional status Ambulates [facility] Work Phone: 05-12-2015 Are you deaf, or do you have serious difficulty hearing No 05/12/2015 1:40 PM EDT Nelly Ceja Cma No [facility] 05-12-2015 Are you blind, or do you have serious difficulty seeing, even when wearing glasses No 05/12/2015 1:40 PM EDT Nelly Ceja Cma No [facility] 05-12-2015 Do you have serious difficulty walking or climbing stairs No 05/12/2015 1:40 PM EDT Nelly Ceja Cma No [facility] 05-12-2015 Do you have difficul ty dressing or bathing No 05/12/2015 1:40 PM EDT Nelly Ceja Cma No [facility] 05-12-2015 Because of a physica l, mental, or emotional condition, do you have difficulty doing errands alone such as visiting a physician's office or shopping No 05/12/2015 1:40 PM EDT Nelly Ceja Cma No [facility] Mental Status Date Assessment Result Facility 06-23-2025 Cognitive function Voice/Name [facility] Work Phone: 11-12-2024 Cognitive function Voice/Name [facility] Work Phone: 08-16-2023 Cognitive function Voice/Name [facility] Work Phone: 05-12-2015 Because of a physica l, mental, or emotional condition, do you have serious difficulty concentrating, remembering, or making decisions No 05/12/2015 1:40 PM EDT Nelly Ceja Cma No [facility] Clinical Notes 08-06-2018 to 07-12-2025 Note Date & Type Note Facility 07-12-2025 Progress note [facility] 07-12-2025 Progress note Note Date/Time July 12, 2025 3:25pm [facility] [address] [place] [address] OFFICE VISIT Date of Service: 07/12/25 MR#: [id number] Acct: [id number] Name: BRENDA LE Rep #: [id number] : 1965 Provider: MAKSIM Razo Age/Sex: 59/F Location: [facility] Status: Signed Intake Vital Signs 06/23/25 09:36 Height 5 ft 1 in Intake Visit Reasons: Procedure F/U-Abdominal pain Chief Complaint: Loose stool Draw Frame Runner Required: No Accompanied by: Self Is patient [...] QHS 07/12/25 History mL intramuscular syringe ([facility]) acetaminophen 325 mg tablet 325 mg PO [...] disease) Cancer Social History housing: other details: senior living. Smoking Status: Former smoker how long ago [...] Const General: cooperative and comfortable Orientation: alert [facility] Head: normal to inspection Ears: hearing grossly [...] Cosigner Signature: Date (if applicable) CC: ~ [facility] Work Phone: 1(223) 256-197709-16-2025 Instructions* Patient Instructions* Aleksandar Jones MD - 06/28/2025 2:18 PM EDT We discussed your overall health and care plan: - Venous Insufficiency and Leg Swelling: - You need to wear compression stockings to help manage your leg swelling. I have sent a prescription for compression stockings to your pharmacy. - If you cannot get compression stockings, consider using [employer]neum[employer] as an alternative. - Cholesterol Management: - [...] pharmacy where you received your first dose ([facility] or the [email or web address]) to schedule this. - Medications: - [...] to contact our office. [facility] History of Present illness Narrative* Aleksandar Jones MD - 06/28/2025 2:05 PM EDT The patient is a 59-year-old female with anxiety disorder, hyperlipidemia, type 2 diabetes mellitus, obstructive sleep apnea, and chronic venous insufficiency, presenting for 6-month follow-up. HPI Anxiety: - Brenda Le continues to see psychiatry. - Brenda reports feeling very tired during the day. Venous Insufficiency: - Brenda is not wearing compression stockings currently; needs to purchase a new pair. - Brenda reports leg pain and swelling. Hyponatremia: - Recent sodium level was 131 mEq/L in March. - History of excessive fluid intake; Brenda is currently drinking too much juice. - Fluid restriction previously implemented. Hyperlipidemia: - [...] x 5/16 Use one needle per dose. 4 times [...] HISTORY Diagnosis Date Bilateral pneumonia 07/23/2018 Admit [facility]: pneumococcal suspected, neg culture. + rhinovirus [...] 12/19/2016 Normal colonoscopy-10 year follow-up EGD W/O BRSH SPEC VARICIES INJ 06/23/2025 PAST SURGICAL HISTORY [...] nephropathy, with long-term current use of insulin ([facility]) (E11.21) - Most recent A1c was 6.5% in March, showing improvement. - Order repeat A1c. 9. Schizophreniform disorder, chronic condition ([facility]) (F20.81) - Continues to see psychiatry. - Advised patient to discuss benztropine side effects with psychiatrist. 10. LIDA (obstructive sleep apnea) (G47.33) - Continues to use CPAP. - Continues to see Dr. Ramirez for management. 11. SVT (supraventricular tachycardia) ([facility]) (I47.10) 12. Tachycardia (R00.0) - Seen by cardiology in March; blood pressure and heart rate stable. - Order BNP to monitor cardiac status. 13. Acute diastolic CHF (congestive heart failure) ([facility]) (I50.31) - Normal BNP in [...] to patient) Aleksandar Jones MD Recording using Rev software for draft documentation of the visit was discussed with the patient/authorized client care representative; all questions welcomed and answered. Patient/authorized client care representative agreed to proceed [1] Social History [...] yrs, but not now [facility] Consult note Author Andreas Mo [facility] Note Date/Time June 23, 2025 11:01am [facility] Medical Records Department [address] [facility] [place] [address] Pre-Anesthesia Evaluation 06/23/25 1043 MR#: [id number] Acct: [id number] Name: BRENDA LE Rep #:[id number] : 1965 59 From: Andreas Mo MD PCP: Dr. Aleksandar Jones MD Status:REG S DC Y Race: C Location: [place] [address] Andreas Mo MD on [...] COLONOSCOPY, EGD Anesthesia History Anesthesia History - digital marketing assistant: Anesthesia History - digital marketing assistant Hx Hospitalization Yes: PNEUMONIA 06/21/25 12:00 Any [...] surgery Any additional information?: Yes NPO since: : (Patient finished her prep at 7:30 AM.) Meds taken in AM with sips of water?: No PONV PONV - digital marketing assistant: PONV - digital marketing assistant Female Yes 06/21/25 12:00 HX of Motion [...] 06/23/25 09:36 Respiratory Assessment Respiratory Assessment - digital marketing assistant: Respiratory Tract Infection Hx - digital marketing assistant Hx Respiratory Tract Infection Yes: COMPLETED ATB 06/21/25 12:00 Any additional information?: Yes Hx Respiratory Tract Infection: Yes (Patient was on antibiotics for airway infection. She has been done with it) History of Anesthesia Respiratory Infection details: Patient was on antibiotics for airway infection. She has been done with it for over a week. STOP Sleep Apnea STOP Sleep Apnea - digital marketing assistant: STOP Sleep Apnea - digital marketing assistant Hx Hypertension Yes 06/21/25 12:00 Hx Sleep [...] Tobacco Use History Tobacco Use History - digital marketing assistant: Tobacco Use History - digital marketing assistant Tobacco Use Smoking Status Former smoker 06/21/25 12:00 Hx Tobacco Use No 06/21/25 12:00 Years Smoking Packs Smoked per Day Smoking Cessation Date was No - quit smoking greater 06/21/25 12:00 within the last 15 years than 15 years ago Hx Smoking Cessation Date 07/30/20 06/21/25 12:00 Hx Smoking Cessation No 06/21/25 12:00 Counseling Hematologic Medial History Hematologic Hx - digital marketing assistant: Hematologic Medical Hx - documentation liaison Hx of Blood Transfusion No 06/21/25 12:00 [...] confused, unrespo /Reproduction History /Reproductive History - digital marketing assistant: /Reproductive Hx- digital marketing assistant Hx Now No 06/21/25 12:00 Gestational Age [...] of cholecystectomy Social History housing: other details: senior living. Smoking Status: Former smoker how long ago [...] MD Cosigner Signature: Date CC: ~ Signed [facility] Work Phone: 1(271) 130-244309-11-2025 Procedure note [facility] Medical Records Department [address] [place] [address] Colonoscopy Report MR#: [id number] Acct: [id number] Name: BRENDA LE Rep #:[id number] : 1965 59 From: Basil Velasquez DO [...] was poor. Procedure Code(s): --- Professional --- 23278, Colonoscopy, flexible; with biopsy, single or multiple CPT copyright 2021 [employer] [employer]. All rights reserved. The codes documented in this report are preliminary and upon industrial sweeper cleaner review may be revised to meet current compliance requirements. Basil Velasquez DO 06/23/2025 12:45:35 PM This report has been signed electronically. Number of Addenda: 0 Note Initiated On: 06/23/2025 11:38 AM 06/23/25 1245 Date _ Basil Velasquez DO Cosigner Signature: Date (if indicated) CC: Dr. Aleksandar Jones MD; Basil Velasquez DO ~ Date Dictated: 06/23/25 1138 Date Transcribed: Recruiter Specialist: ANIYA Signed [facility]09-11-2025 Procedure note [facility] Medical Records Department [address] [place] [address] Provation Physician Letter MR#: [id number] Acct: [id number] Name: BRENDA LE Rep #:[id number] : 1965 59 From: Basil Velasquez DO [...] signed electronically. 06/23/25 1245 Date _ Basil Crespoignjessi Signature: Date (if indicated) CC: Dr. Aleksandar Jones MD; Basil Velasquez DO ~ Date Dictated: 06/23/25 1138 Date Transcribed: Recruiter Specialist: ANIYA Signed [facility]09-11-2025 Procedure note [facility] Medical Records Department [address] [place] [address] EGD Report MR#: [id number] Acct: [id number] Name: BRENDA LE Rep #:[id number] : 1965 59 From: Basil Velasquez DO [...] Dionicio esophagitis Procedure Code(s): --- Professional --- 25390, Small intestinal endoscopy, enteroscopy beyond second portion of duodenum, not including ileum; with biopsy, single or multiple CPT copyright 2021 [employer] [place] [employer]. All rights reserved. The codes documented in this report are preliminary and upon industrial sweeper cleaner review may be revised to meet current compliance requirements. Basil Velasquez DO 06/23/2025 12:42:38 PM This report has been signed electronically. Number of Addenda: 0 Note Initiated On: 06/23/2025 11:18 AM 06/23/25 1242 Date _ Basil Garner Signature: Date (if indicated) CC: Dr. Aleksandar Jones MD; Basil Velasquez DO ~ Date Dictated: 06/23/251117 Date Transcribed: Recruiter Specialist: RF Signed [facility]09-11-2025 Procedure note [facility] Medical Records Department [address] [place] [address] Provation Physician Letter MR#: [id number] Acct: [id number] Name: BRENDA LE Rep #:[id number] : 1965 59 From: Basil Velasquez DO [...] ~ Date Dictated: 06/23/25 1118 Date Transcribed: Recruiter Specialist: RF Signed [facility]09-11-2025 Consult note [facility] Medical Records Department [address] [place] [address] Anesthesia Postop Eval I 06/23/25 1235 MR#: [id number] Acct: [id number] Name: BRENDA LE Rep #:[id number] : 1965 59 From: Rolf Agudelo CRNA PCP: Dr. Aleksandar Jones MD Status:REG S DC Y Race: C Location: [place] [address] Anesthesia: Postop Eval I Current Vital Signs [...] Eval 1 completed: No 06/23/25 1236 ds RAILCAR SWITCHMAN> Date _ Rolf Agudelo RAILCAR SWITCHMAN Cosigner Signature: Date CC: ~ Signed [facility]09-11-2025 History and physical note Author Basil Velasquez [facility] Note Date/Time June 23, 2025 9:56am [facility] Medical Records Department [address] [place] [address] History & Physical Exam 06/23/25 0954 MR#: [id number] Acct: [id number] Name: BRENDA LE Rep #:[id number] : 1965 59 From: Basil Velasquez DO PCP: Dr. Aleksandar Jones MD Status:REG S DC Location: [place] [address] HPI - General General Date of Admission: [...] was. She has never had an EGD. [facility] Medical History Wears glasses Wears [...] of cholecystectomy Social History housing: other details: senior living. Smoking Status: Former smoker how long ago [...] Aleksandar Jones MD; Basil Velasquez DO~ Signed [facility] Work Phone: 1(812) 649-483909-11-2025 Consult note [facility] Medical Records Department [address] [place] [address] Pre-Anesthesia Evaluation 06/23/25 1043 MR#: [id number] Acct: [id number] Name: BRENDA LE Rep #:[id number] : 1965 59 From: Andreas Mo MD PCP: Dr. Aleksandar Jones MD Status:REG S DC Y Race: C Location: [address] ADD[address]UM by Dr[address] Andreas Mo MD on [...] COLONOSCOPY, EGD Anesthesia History Anesthesia History - digital marketing assistant: Anesthesia History - digital marketing assistant Hx Hospitalization Yes: PNEUMONIA 06/21/25 12:00 Any [...] sips of water?: No PONV PONV - digital marketing assistant: PONV - digital marketing assistant Female Yes 06/21/25 12:00 HX of Motion [...] 06/23/25 09:36 Respiratory Assessment Respiratory Assessment - digital marketing assistant: Respiratory Tract Infection Hx - digital marketing assistant Hx Respiratory Tract Infection Yes: COMPLETED ATB 06/21/25 12:00 Any additional information?: Yes Hx Respiratory Tract Infection: Yes (Patient was on antibiotics for airway infection. She has been done with it) History of Anesthesia Respiratory Infection details: Patient was on antibiotics for airway infection. She has been done with it for over a week. STOP Sleep Apnea STOP Sleep Apnea - digital marketing assistant: STOP Sleep Apnea - digital marketing assistant Hx Hypertension Yes 06/21/25 12:00 Hx Sleep [...] Tobacco Use History Tobacco Use History - digital marketing assistant: Tobacco Use History - digital marketing assistant Tobacco Use Smoking Status Former smoker 06/21/25 12:00 Hx Tobacco Use No 06/21/25 12:00 Years Smoking Packs Smoked per Day Smoking Cessation Date was No - quit smoking greater 06/21/25 12:00 within the last 15 years than 15 years ago Hx Smoking Cessation Date 07/30/20 06/21/25 12:00 Hx Smoking Cessation No 06/21/25 12:00 Counseling Hematologic Medial History Hematologic Hx - digital marketing assistant: Hematologic Medical Hx - documentation liaison Hx of Blood Transfusion No 06/21/25 12:00 [...] confused, unrespo /Reproduction History /Reproductive History - digital marketing assistant: /Reproductive Hx- digital marketing assistant Hx Now No 06/21/25 12:00 Gestational Age [...] of cholecystectomy Social History housing: other details: senior living. Smoking Status: Former smoker how long ago did patient quit smoking: Quit 10 years prior to 08/14/23 presentation, 2 ppd since teen until quit. alcohol intake: never substance use type: does not use Review of Systems (Anesthesia) ROS Narrative System reviewed and no additional complaints, except as documented. 06/23/25 1055 christelle SANDERS> Date _ Andreas Mo MD Cosigner Signature: Date CC: ~ Signed [facility]09-11-2025 History and physical note [facility] Medical Records Department [address] [place] [address] History & Physical Exam 06/23/25 0954 MR#: [id number] Acct: [id number] Name: BRENDA LE Rep #:[id number] : 1965 59 From: Basil Velasquez DO PCP: Dr. Aleksandar Jones MD Status:REG S DC Location: [place] [address] HPI - General General Date of Admission: [...] was. She has never had an EGD. [facility] Medical History Wears glasses Wears [...] 325 mg tablet,delayed 325 mg PO DAILY@[address] [facility] 07/22/18 06/22/25 History release potassium chloride 20 [...] of cholecystectomy Social History housing: other details: senior living. Smoking Status: Former smoker how long ago [...] Aleksandar Jones MD; Basil Friend, DO~ Signed [facility]08-27-2025 Telephone encounter Note* Telephone Encounter - Loree Chen RN - 06/08/2025 4:47 PM EDT Clearance form faxed 05/30/25. Loree Chen RN [facility]08-27-2025 Miscellaneous Notes* Telephone Encounter - Loree Chen RN - 06/08/2025 4:47 PM EDT Clearance form faxed 05/30/25. Loree Chen RN * Telephone Encounter - Loree Chen RN - 05/19/2025 1:09 PM EDT NURSING CHART REVIEW FOR PREOPERATIVE CARDIAC EVALUATION Surgery: Colonoscopy/EGD with MAC Sedation Low Risk Date: 06/23/25 Surgeon: [facility] Chart review: Primary grave digger: Dr. Renee Patient seen in the last year? Yes - 04/04/25 Recent Cardiac admission since last visit? No On anticoagulation for cardiac indication? No On antiplatelet agents? No Date of last cardiac stent if applicable: Form received via fax and scanned into [employer]. Loree Chen RN Optional? List of low risk surgeries Endoscopies (EGD, colonoscopy) Breast Dental Interventional radiology (drains, lines) Dermatological procedures Thyroid Eye (cataract) Inguinal hernia Gynecological: minor Orthopedic minor (arthroscopic) Reconstructive Superficial surgery Urological minor (cystoscopy, TURP) [facility] Telephone encounter Note * Telephone Encounter - Aleksandar Jones MD - 06/03/2025 8:12 AM EDT Apparently wears adult pullups due to chronic incontinence. I can find documention of such dating back to [address] Dwight mancilla and Dr MarcAnthony note. [facility]08-22-2025 Miscellaneous Notes* Telephone Encounter - Aleksandar Jones MD - 06/03/2025 8:12 AM EDT Apparently wears adult pullups due to chronic incontinence. I can find documention of such dating back to [address] Quintanilla note and Dr Tinajero note. [facility]25 Telephone encounter Note * Telephone Encounter - Loree Chen RN - 05/19/2025 1:09 PM EDT NURSING CHART REVIEW FOR PREOPERATIVE CARDIAC EVALUATION Surgery: Colonoscopy/EGD with MAC Sedation Low Risk Date: 06/23/25 Surgeon: [facility] Chart review: Primary grave digger: Dr. Renee Patient seen in the last year? Yes - 04/04/25 Recent Cardiac admission since last visit? No On anticoagulation for cardiac indication? No On antiplatelet agents? No Date of last cardiac stent if applicable: Form received via fax and scanned into [employer]. Loree Chen RN Optional? List of low risk surgeries Endoscopies (EGD, colonoscopy) Breast Dental Interventional radiology (drains, lines) Dermatological procedures Thyroid Eye (cataract) Inguinal hernia Gynecological: minor Orthopedic minor (arthroscopic) Reconstructive Superficial surgery Urological minor (cystoscopy, TURP) [facility]07-30-2025 Telephone encounter Note* Telephone Encounter - Aleksandar Jones MD - 05/11/2025 12:09 PM EDT I will address at next ov. [facility]07-30-2025 Miscellaneous Notes* Telephone Encounter - Aleksandar Jones MD - 05/11/2025 12:09 PM EDT I will address at next ov. * Telephone Encounter - Cristal White RN - 05/11/2025 11:33 AM EDT Laney with [facility] called in with a Statin recommendation. She reports Pt was on Lipitor and it hasn't been renewed since Aug 2024. She states Pt is a diabetic and per the diabetic guidelines should be on a statin. She was asking if provider was going to renew medication. Cristal White RN documented [facility]Hol[facility]07-30-2025 Telephone encounter Note * Telephone Encounter - Cristal White RN - 05/11/2025 11:33 AM EDT Laney with [facility] called in with a Statin recommendation. She reports Pt was on Lipitor and it hasn't been renewed since Aug 2024. She states Pt is a diabetic and per the diabetic guidelines should be on a statin. She was asking if provider was going to renew medication. Cristal White RN [facility]07-29-2025 Evaluation note* Diagnosis Onset Date Resolution Status Admit Date Abdominal pain acute May 10, 2025 12:24pm Nausea acute May 10 12:24pm Constipation noneactive May 10, 2 025 12:24pm [facility] Work Phone: 1(542) 826-959807-29-2025 Evaluation note* Diagnosis Onset Date Resolution Status Admit Date Abdominal pain acute May 10, 2025 12:24pm Nausea acute May 10 12:24pm Constipation noneactive May 10, 2 025 12:24pm Abdominal pain acute June 23, 2025 7:58am Dysphagia acute June 7:58am Nausea acute June 7:58am [facility] Work Phone: 1(524) 340-796907-29-2025 Evaluation note* Diagnosis Onset Date Resolution Status Admit Date Abdominal pain acute May 10, 2025 12:24pm Nausea acute May 10 12:24pm Constipation noneactive May 10, 2 025 12:24pm Abdominal pain acute June 23, 2025 7:58am Dysphagia acute June 7:58am Nausea acute June 7:58am Abdominal pain acute July 12, 2025 2:48pm Nausea acute June 2:48pm [facility] Work Phone: 1(551) 749-278807-29-2025 Radiology Diagnostic study note [facility] Imaging Services [address] [place] [address] Lung Screening MR#: [id number] Acct: [id number] Name: BRENDA LE Rep #: [id number] : 1965 F 59 From: Adalid Sanchez MD PCP: Dr. Aleksandar Jones MD Status: FUNMILAYO ARROYO Study:Low Dose CT Lung Screening Date of Exam : 05/06/25 Exam# [id number] Ordering Dr: Koby Ramirez MD PROCEDURE: LOW [...] use of iterative reconstruction technique). REFERENCE LINK: [employer] Lung-RADS RADIATION DOSE SUMMARY: CTDlvol: 4.02 mGy [...] SCREENING LDCT. Other Significant Findings: Reading Location: [id number] CC: Dr. Koby Ramirez MD; Dr. Aleksandar Jones MD ~ Recruiter Specialist: Signed [facility]06-24-2025 Telephone encounter Note* Telephone Encounter - Alma Smart RN - 04/05/2025 12:55 PM EDT Kaya returned call and given provider's message below with verbalized understanding. Updated contact per Kaya request. [facility]06-24-2025 Miscellaneous Notes* Telephone Encounter - Alma Smart RN - 04/05/2025 12:55 PM EDT Kaya returned call and given provider's message below with verbalized understanding. Updated contact per Kaya request. * Telephone Encounter - Nisha Oneill MA - 04/05/2025 12:45 PM EDT Called phone number for patient and it was for Breanna Payne, listed as her health and social care teacher. Breanna answered and said Brenda now lives in [facility] and to call her legal guardian, Kaya [...] does not have hepatitis. documented in this encounterHolzer Hospital06-24-2025 Telephone encounter Note * Telephone Encounter - Nisha Oneill MA - 04/05/2025 12:45 PM EDT Called phone number for patient and it was for Breanna Payne, listed as her health and social care teacher. Breanna answered and said Brenda now lives in [facility] and to call her legal guardian, Kaya Fuller. I lefta message for Kaya to call back and speak with a nurse. When she call back, please advise her of results AND update patient contacts. Thanks Nisha Oneill MA April 05, 2025 12:48 PM [facility]06-24-2025 Telephone encounter Note* Telephone Encounter - Nisha Oneill MA - 04/05/2025 12:32 PM EDT ----- Message from Aleksandar Jones MD sent at 03/31/2025 10:30 AM EDT ----- Let them know ID feels we are ok. No need for any worry or further testing. She does not have hepatitis. [facility]06-23-2025 [facility]Prem[facility]06-[facility] History of Present illness Narrative* Fuentes Renee MD - 04/04/2025 3:44 PM EDT Images from the original note were not included. Fuentes Renee MD Interventional Cardiology [address] [place] [address] [phone] Chief Complaint Patient presents with: Follow Up HISTORY OF PRESENT ILLNESS: Ms. Le is a 59 year old female With tachycardia presenting for follow-up She reports a recent transition from a half-way to an assisted living facility, which has been challenging. Although she describes the facility as very, very nice, she experiences significant depression and loneliness. She mentions hearing voices that are distressing, stating, Some days, some nights, I feel like I'm dying. She has a scheduled appointment with her psychiatrist tomorrow butfeels that her current psychiatric care is not adequately addressing her needs. She denies experiencing chest pain or palpitations. She notes feeling so tired but attributes this to her current emotional state rather than any cardiac issues. She is currently taking metoprolol 25 mg once daily in the morning, along with albuterol inhalers, aspirin, and Lasix. She is no longer taking clonazepam. Cardiac Risk Factors age (male over 45, female over 55), family history of CAD PAST MEDICAL HISTORY Diagnosis Date Bilateral pneumonia 07/23/2018 Admit [facility]: pneumococcal suspected, neg culture. + rhinovirus [...] 1 capsule by mouth once daily. 30 [id number] aspirin, enteric coated (ASPIRIN, ENTERIC COATED) 325 [...] x 5/16 Use one needle per dose. 4 times [...] results found for: TSHREFL Prior Cardiac Testing none Assessment and Plan: [...] to correct any errors. documented in this encounterHolzer Hospital06-18-2025 NotePrem[facility]06-18-2025 History of Present illness Narrative* Aleksandar Jones [...] x 5/16 Use one needle per dose. 4 times [...] HISTORY Diagnosis Date Bilateral pneumonia 07/23/2018 Admit [facility]: pneumococcal suspected, neg culture. + rhinovirus [...] (Temporal) Resp 16 Ht 154.9 cm (5' 1) Wt 85.1 kg (187 lb 9.6 oz) [...] to patient) Aleksandar Jones MD Recording using Rev software for draft documentation of the visit was discussed with the patient/authorized client care representative; all questions welcomed and answered. Patient/authorized client care representative agreed to proceed documented in this encounterHolzer Hospital06-17-2025 History of Present illness Narrative* Ritika [...] PATIENT PRESENTS WITH AN IMPLANTABLE OR ATTACHED HANDLE LATHE OPERATOR: No RADIOLOGY DEPARTMENT: General X-ray: Exam(s) Completed: Chest X-Ray PERIPHERAL IV DATA: Not applicable SIGNED BY: RT Abbe(R) March 29, 2025 10:06 AM documented in this encounterHolzer Hospital06-17-2025 NotePrem[facility]06-02-2025 Telephone encounter Note* Telephone Encounter - Adrianne Saldivar LPN - 03/14/2025 4:44 PM EDT No show letter #1 [facility]06-02-2025 Miscellaneous Notes* Telephone Encounter - Adrianne Saldivar LPN - 03/14/2025 4:44 PM EDT No show letter #1 documented in this encounterHolzer Hospital05-16-2025 Telephone encounter Note * Telephone Encounter - Maye Ferrer LPN - 02/25/2025 9:24 AM EDT Brenda from [facility] calling to notify PCP that patient has moved to assisted living at [facility] on 02/22/2025. [facility]05-16-2025 Miscellaneous Notes* Telephone Encounter - Maye Ferrer LPN - 02/25/2025 9:24 AM EDT Brenda from [facility] calling to notify PCP that patient has moved to assisted living at [facility] on 02/22/2025. documented in this encounterHolzer Hospital05-09-2025 Telephone encounter Note * Telephone Encounter [...] capsules three times daily. Shirley Romero RN [facility]05-09-2025 Miscellaneous Notes* Telephone Encounter - Shirley [...] daily. Shirley Romero RN documented in this encounterHolzer Hospital05-02-2025 Telephone encounter Note * Telephone Encounter - Joselyn Hendricks MA - 02/11/2025 2:12 PM EDT Kaya informed form ready. Taken to medical records. Joselyn Hendricks MA [facility]05-02-2025 Miscellaneous Notes* Telephone Encounter - Joselyn [...] nurse's desk. Eunice Lam documented in this encounterHolzer Hospital05-01-2025 Telephone encounter Note * Telephone Encounter - Eunice Lam - 02/10/2025 9:07 AM EDT Guardian brought paperwork back as it still looks incomplete (possibly missing an office note?). Please review and advise. Forms have been placed on nurse's desk. Eunice Lam [facility]04-29-2025 Telephone encounter Note* Telephone Encounter - Joselyn Hendricks MA - 02/08/2025 4:49 PM EDT Form completed and noted per request of Kaya. Placed call to cassidy Kirkpatrick at [facility] with no answer. Left message for return call and informing her form is completed. No fax number on form. Joselyn Hendricks MA [facility]04-29-2025 Miscellaneous Notes* Telephone Encounter - Joselyn Hendricks MA - 02/08/2025 4:49 PM EDT Form completed and noted per request of Kaya. Placed call to Kaya, patients guardian at [facility] with no answer. Left message [...] let provider know that currently in the half-way patient is not adhering to the 1500 cc fluid restriction. Kaya asking if provider could add to the forms that Patient is awareof 1500 mL fluid restriction to address the issues but stay within what the [place] is allowed to do. Anusha Hansen, RN * Telephone Encounter - Nisha Oneill MA - 01/31/2025 3:06 PM EDT Copy of form placed on provider's desk. If possible, will give to INFORMATION SYSTEMS CONSULTANT's to update if agreeable. Nisha Oneill MA [...] that would be great but at the half-way pt is in now they do not [...] Living. Nel Villafana LPN documented in this encounterHolzer Hospital04-28-2025 Telephone encounter Note * Telephone Encounter - Aleksandar Jones MD - 02/07/2025 8:18 PM EDT She needs the fluid restriction. Carb counting is ok. [facility]04-24-2025 Telephone encounter Note* Telephone Encounter - [...] let provider know that currently in the half-way patient is not adhering to the 1500 cc fluid restriction. Kaya asking if provider could add to the forms that Patient is awareof 1500 mL fluid restriction to address the issues but stay within what the AL is allowed to do. Anusha Hansen, RN [facility]04-21-2025 Telephone encounter Note* Telephone Encounter - Nisha Oneill MA - 01/31/2025 3:06 PM EDT Copy of form placed on provider's desk. If possible, will give to INFORMATION SYSTEMS CONSULTANT's to update if agreeable. Nisha Oneill MA January 31, 2025 3:06 PM [facility]04-21-2025 Telephone encounter Note* Telephone Encounter - [...] that would be great but at the half-way pt is in now they do not [...] get into Assisted Living. Nel Villafana LPN [facility]04-18-2025 Telephone encounter Note* Telephone Encounter - Adrianne Saldivar LPN - 01/28/2025 12:50 PM EDT Notified Kaya that will be in medical records for molded goods spot picker. [facility]04-18-2025 Miscellaneous Notes* Telephone Encounter - Adrianne Saldivar LPN - 01/28/2025 12:50 PM EDT Notified Kaya that will be in medical records for molded goods spot picker. * Telephone Encounter - Eunice Spivey RN - 01/27/2025 11:12 AM EDT Kaya calls and states that she did not receive forms that were faxed. Kaya asking if she can comeinto office and molded goods spot picker a copy of forms? Please review and advise, Eunice Spivey RN documented in this encounterHolzer Hospital04-17-2025 Telephone encounter Note * Telephone Encounter - Eunice Spivey RN - 01/27/2025 11:12 AM EDT Kaya calls and states that she did not receive forms that were faxed. Kaya asking if she can comeinto office and molded goods spot picker a copy of forms? Please review and advise, Eunice Spivey RN [facility]04-15-2025 Telephone encounter Note* Telephone Encounter - [...] Spivey RN January 25, 2025 3:23 PM [facility]04-15-2025 Miscellaneous Notes* Telephone Encounter - Eunice [...] 25, 2025 3:23 PM documented in this encounterHolzer Hospital04-14-2025 Telephone encounter Note * Telephone Encounter - Adrianne Saldivar LPN - 01/24/2025 8:21 AM EDT Forms completed and faxed as requested. [facility]04-14-2025 Miscellaneous Notes* Telephone Encounter - Adrianne Saldivar LPN - 01/24/2025 8:21 AM EDT Forms completed and faxed as requested. * Telephone Encounter - Eunice Lam - 01/21/2025 1:55 PM EDT Patient's Guardian, Kaya Alina, dropped off forms for patient's assisted living facility. Please fax completed forms to Kaya at [phone]. Form placed on nurse's desk. Eunice Lam documented in this encounterHolzer Hospital04-11-2025 Telephone encounter Note * Telephone Encounter - Eunice Lam - 01/21/2025 1:55 PM EDT Patient's Guardian, Kaya Fuller, dropped off forms for patient's assisted living facility. Please fax completed forms to Kaya at [phone]. Form placed on nurse's desk. Eunice Lam [facility]04-09-2025 History of Present illness Narrative* Samira [...] PATIENT PRESENTS WITH AN IMPLANTABLE OR ATTACHED HANDLE LATHE OPERATOR: No RADIOLOGY DEPARTMENT: Mammography PERIPHERAL IV DATA: Not applicable SIGNED BY: Dwight Cheema January 19, 2025 2:55 PM documented in this encounterHolzer Hospital04-09-2025 NotePrem[facility]04-08-2025 History of Present illness Narrative* Ivett Blackburn [...] PATIENT PRESENTS WITH AN IMPLANTABLE OR ATTACHED HANDLE LATHE OPERATOR: No RADIOLOGY DEPARTMENT: Ultrasound PERIPHERAL IV DATA: Not applicable SIGNED BY: Ivett Blackburn RDMS January 18, 2025 2:34 PM documented in this encounterHolzer Hospital04-08-2025 NotePrem[facility]04-04-2025 Telephone encounter Note* Telephone Encounter - Frank Joya LPN - 01/14/2025 1:56 PM EDT Flake Cutter OperatorZaira, notified of results/provider instructions. She verbalized understanding. Frank Joya LPN [facility]04-04-2025 Miscellaneous Notes* Telephone Encounter - Frank Joya LPN - 01/14/2025 1:56 PM EDT Flake Cutter OperatorZaira, notified of results/provider instructions. She verbalized understanding. Frank Joya LPN * Telephone Encounter - Radha Batista APRN.PRINTING MECHANIST - 01/14/2025 1:24 PM EDT Images from the original note were not included. It looks like this was ran on 01/11. Sodium is still low, but there was some improvement. Please do not restrict sodium in diet and continue to not over- drink. Recheck sodium in 2 weeks -- order is in. documented in this encounterHolzer Hospital04-04-2025 Telephone encounter Note * Telephone Encounter - Radha Batista APRN.CNP - 01/14/2025 1:24 PM EDT Images from the original note were not included. It looks like this was ran on 01/11. Sodium is still low, but there was some improvement. Please do not restrict sodium in diet and continue to not over- drink. Recheck sodium in 2 weeks -- order is in. [facility]04-02-2025 Telephone encounter Note* Telephone Encounter - Adrianne Saldivar LPN - 01/12/2025 1:19 PM EDT Lab orders are being corrected. Just need to reorder BMP and hepatic or can be CMP. Notify this nurse when ordered please. [facility]04-02-2025 Miscellaneous Notes* Telephone Encounter - Adrianne Saldivar LPN - 01/12/2025 1:19 PM EDT Lab orders are being corrected. Just need to reorder BMP and hepatic or can be CMP. Notify this nurse when ordered please. documented in this encounterHolzer Hospital04-02-2025 Instructions* Patient Instructions* Aleksandar Jones MD - 01/12/2025 10:49 AM EDT Brenda should be on a liter and half of fluid in 24 hours. No more. Get labs today and then again in one month documented in this encounterHolzer Hospital04-02-2025 Telephone encounter Note * Telephone Encounter - Adrianne Saldivar LPN - 01/12/2025 10:12 AM EDT Patient in office today to discuss. [facility]04-02-2025 Miscellaneous Notes* Telephone Encounter - Adrianne [...] they will see her. documented in this encounterHolzer Hospital04-02-2025 NotePrem[facility]04-02-2025 History of Present illness Narrative* Aleksandar Jones [...] states she doesn't feel good. Legs are bothering her. Can hardly walk. No swelling. They ache. She states the tylenol is causing some paranoia. Discussed that tylenol should not do that. [...] states she doesn't feel good. Legs are bothering her. Can hardly walk. No swelling. They ache. She states the tylenol is causing some paranoia. Discussed that tylenol should not do that. [...] Lymph 1.00 - 4.00 k/uL 2.70 2.24 [place]% % 4.8 7.9 Abs [place] <0.87 k/uL 0.56 0.84 Eosin% % 0.3 [...] x 5/16 Use one needle per dose. 4 times [...] HISTORY Diagnosis Date Bilateral pneumonia 07/23/2018 Admit [facility]: pneumococcal suspected, neg culture. + rhinovirus [...] stable. Aleksandar Jones MD documented in this encounterHolzer Hospital03-28-2025 Telephone encounter Note * Telephone Encounter - Tonie Escobar MA - 01/07/2025 4:28 PM EDT Left message for patient to call office back Tonie Escobar MA [facility]03-26-2025 Telephone encounter Note* Telephone Encounter - Radha Batista APRN.CNP - 01/05/2025 12:11 PM EDT Noted. Radha Batista APRN.CNP [facility]03-26-2025 Miscellaneous Notes* Telephone Encounter - Radha Batista APRN.CNP - 01/05/2025 12:11 PM EDT Noted. Radha Batista APRN.PAVITHRA * Telephone Encounter - Shirley Romero RN - 01/05/2025 10:14 AM EDT Steph Hemal calling from [facility] and asking this office to notify [facility] that pt's Jardiance is being held (per previous note below) until lab recheck next week, in regard to pt's pill-packaging service there. This nurse updated [facility] as requested. Steph also requesting pt's last OV note to be faxed to [facility] along with documentation of order for pt to hold Jardiance, in regard to pt's Fpc requirements. Information faxed as requested to FAX #: [phone]. Shirley Romero RN * Telephone Encounter - [...] in. Radha Batista APRN.PAVITHRA documented in this encounterHolzer Hospital03-26-2025 Telephone encounter Note * Telephone Encounter - Alekasndar Jones MD - 01/05/2025 11:35 AM EDT Let them know ID felt the labs were likely a false positive. They recommended that we repeat some labs again in four to six weeks and if need be they will see her. [facility]03-26-2025 Telephone encounter Note* Telephone Encounter - Shirley Romero RN - 01/05/2025 10:14 AM EDT Steph Recio calling from [facility] and asking this office to notify [facility] that pt's Jardiance is being held (per previous note below) until lab recheck next week, in regard to pt's pill-packaging service there. This nurse updated [facility] as requested. Steph also requesting pt's last OV note to be faxed to [facility] along with documentation of order for pt to hold Jardiance, in regard to pt's Fpc requirements. Information faxed as requested to FAX #: [phone]. Shirley Romero RN [facility]03-26-2025 NotePrem[facility]03-26-2025 History of Present illness Narrative* Jey Brown [...] MD January 05, 2025 documented in this encounterHolzer Hospital03-25-2025 Telephone encounter Note * Telephone Encounter - Frank Joya LPN - 01/04/2025 4:47 PM EDT Spoke /c caregiver, Fransisca, notified of results/provider instructions. Fransisca states they do try to watch her water intake. Fransisca is asking for a new order for compression stockings to be sent to [facility] d/t pt threw the last pr away. Frank Joya LPN [facility]03-25-2025 Telephone encounter Note* Telephone Encounter - Maye Ferrer LPN - 01/04/2025 2:45 PM EDT Patient Guardian Kaya Fuller returned call and went over results, notes from Dr Jones with understanding. Kaya said patient lives in a half-way and she is going to have them call and schedule her ultrasound appt, and lab work. [facility]03-25-2025 Miscellaneous Notes* Telephone Encounter - Maye Ferrer LPN - 01/04/2025 2:45 PM EDT Patient Guardian Kaya Fuller returned call and went over results, notes from Dr Jones with understanding. Kaya said patient lives in a half-way and she is going to have them call and schedule her ultrasound appt, and lab work. * Telephone Encounter - Joselyn Hendricks MA - 01/04/2025 1:56 PM EDT Message left for guardiisaac Kaya to return call. Joselyn Hendricks MA [...] and let her know documented in this encounterHolzer Hospital03-25-2025 Telephone encounter Note * Telephone Encounter - Joselyn Hendricks MA - 01/04/2025 1:56 PM EDT Message left for wilber Kaya to return call. Joselyn Hendricks MA [facility]03-25-2025 Telephone encounter Note* Telephone Encounter - [...] week.The order is in. Radha Batista APRN.PAVITHRA [facility]03-25-2025 Telephone encounter Note* Telephone Encounter - [...] for further followup and let her know [facility]03-24-2025 Telephone encounter Note* Telephone Encounter - [...] Smart RN January 03, 2025 9:03 AM [facility]03-24-2025 Miscellaneous Notes* Telephone Encounter - Alma [...] 03, 2025 9:03 AM documented in this encounterHolzer Hospital03-21-2025 Telephone encounter Note * Telephone Encounter - Edel Katz LPN - 12/31/2024 1:31 PM EDT Patient notified of results, verbalizes understanding of instructions. Edel Katz LPN [facility]03-21-2025 Miscellaneous Notes* Telephone Encounter - Edel [...] lab in 1-2 weeks. documented in this encounterHolzer Hospital03-21-2025 Telephone encounter Note * Telephone Encounter - Radha Batista APRN.CNP - 12/31/2024 1:01 PM EDT Can please let patient know that I received her lab results. Her sodium is a little low. Please make sure she isn't drinking too much water and follow her restriction. Recheck lab in 1-2 weeks. [facility]03-21-2025 Telephone encounter Note* Telephone Encounter - Eunice Spivey RN - 12/31/2024 10:53 AM EDT Patient notified of results and provider's instructions. Patient verbalizes understanding. Eunice Spivey RN [facility]03-21-2025 Miscellaneous Notes* Telephone Encounter - Eunice [...] however to be sure. documented in this encounterHolzer Hospital03-20-2025 Telephone encounter Note * Telephone Encounter - Cristal White, JAH - 12/30/2024 4:52 PM EDT Called and left a message for the Patient to call back and ask for a nurse to receive the providersmessage. Cristal White RN [facility]03-20-2025 NotePrem[facility]03-20-2025 History of Present illness Narrative* Alexandra Kemp - 12/30/2024 4:24 PM EDT POPULATION HEALTH NAVIGATION OUTREACH Action/[facility] Support: Called pt to schedule an appt in Pain Management. PT was not in. Jerome afll took down the message for the pt to call [phone]. Stated that the number I called is for [facility]. Any agent can assist with scheduling Reason for Outreach Care Gap/HCC or Scheduling Wellness Visits Care Gaps due: N/A Patient Contacted: Unable or unnecessary to reach patient: Left message Navigation Signature: Alexandra Kemp December 30, 2024 4:24 PM documented in this encounterHolzer Hospital03-20-2025 Telephone encounter Note * Telephone Encounter - Aleksandar Jones MD - 12/30/2024 1:11 PM EDT Her liver is better. Her hep b studies are equivocal. May be in error or could have had hep b in the past. Repeat full hep b panel however to be sure. [facility]03-20-2025 Telephone encounter Note* Telephone Encounter - [...] Ferrer LPN December 30, 2024 10:03 AM [facility]03-20-2025 Miscellaneous Notes* Telephone Encounter - Maye [...] 30, 2024 10:03 AM documented in this encounterHolzer Hospital03-18-2025 NotePrem[facility]03-18-2025 History of Present illness Narrative* Aleksandar Jones [...] states she doesn't feel good. Legs are bothering her. Can hardly walk. No swelling. They ache. She states the tylenol is causing some paranoia. Discussed that tylenol should not do that. [...] Abs Lymph 1.00 - 4.00 k/uL 2.33 [place]% % 6.9 Abs [place] <0.87 k/uL 0.76 Eosin% % 0.1 Abs [...] x 5/16 Use one needle per dose. 4 times [...] HISTORY Diagnosis Date Bilateral pneumonia 07/23/2018 Admit [facility]: pneumococcal suspected, neg culture. + rhinovirus [...] 126/60 Pulse 113 Ht 154.9 cm (5' 1) Wt 84.4 kg (186 lb) LMP 09/12/2017 [...] psych Aleksandar Jones MD documented in this encounterHolzer Hospital03-11-2025 Discharge summary [facility] Medical Records Department [address] [place] [address] Emergency Department Summary 12/21/24 MR#: [id number] Acct: [id number] Name: BRENDA LE Rep #:[id number] : [id number] 59 From: Babak Garcia DO PCP: Shelia Salomn, MACHINE TOOL DESIGNER Status:REG ER Location: ED HPI History of [...] 2 ill individuals right now in her half-way. Patient states that she has been wheezing a lot lately. Per EMS they did not give any breathing treatments as her lungs were clear for them. [facility] Medical History Obesity (BMI 30-39.9) Hyponatremia [...] tablet,delayed 325 mg PO DAILY@1600 [facility] 07/22/18 07/30/21 History release omeprazole [...] of cholecystectomy Social History housing: other details: senior living. Smoking Status: Former smoker how long ago [...] H Lymph % (Auto) Cancelled 8.6 L [place] % (Auto) Cancelled 4.7 Eos % (Auto) [...] Drop Cells Cancelled Ovalocytes Cancelled Stomatocytes Cancelled [employer] Bodies Cancelled Sara Cells Cancelled Bite Cells [...] Clarity Clear Urine pH 6.5 Ur Specific Starke 1.010 Urine Protein 15 H Urine Glucose [...] (Auto) Neut % (Auto) Lymph % (Auto) [place] % (Auto) Eos % (Auto) Baso % [...] Target Cells Tear Drop Cells Ovalocytes Stomatocytes [employer] Bodies Sara Cells Bite Cells Crenated Cell [...] Color Urine Clarity Urine pH Ur Specific Starke Urine Protein Urine Glucose (UA) Urine Ketones Urine Occult Blood Urine Nitrite Urine Bilirubin Urine Urobilinogen Ur Leukocyte Esterase Urine RBC Urine WBC Ur Squamous Epith Cells Urine Bacteria Urine Mucus Radiography Diagnostic Testing: Clinical Impression(s) from Imaging Studies Chest X-Ray 12/21/24 08:48 IMPRESSION: Pulmonary venous congestion. Reading Location: [facility] Discharge Plan Triage Chief Complaint: Shortness of [...] Care Provider: Shelia Salmon Referrals: Shelia Salmon, MACHINE TOOL DESIGNER [Primary Care Provider] - Activity Restrictions/Additional Instructions: You tested positive for COVID-19 here in the emergency department. Start the steroid that was sent to your pharmacy tomorrow as you were given a dose here today already. Use Zofran as needed for nausea. Ensure adequate hydration. Return with worsening symptoms or any concerns. Follow-up with your doctor in outpatient setting. Print Language: Citizen Of [place] Disposition Disposition: Home, Self Care What to do if you have Problems For any increased pain, shortness of breath, bleeding, nausea or vomiting, chestpain, or any unexpected problems, contact your Primary Care Provider. Call [facility] ([phone]) or report tothe closest Emergency Room. Call 911 if necessary. 12/21/24 1214 Cosigner Signature (if applicable): CC: ESEQUIEL Salmon ~ Signed [facility]03-11-2025 Radiology Diagnostic study note [facility] Imaging Services [address], [place] [address] Chest PA and Lateral MR#: [id number] Acct: [id number] Name: BRENDA LE Rep #: [id number] : 1965 F 59 From: Naomi Carlos MD PCP: ESEQUIEL Headley Status: REG ER Study:Chest PA and Lateral Date of Exam: 12/21/24 Exam# [id number] Ordering Dr: Vahe Garcia DO EXAM: XR Chest, 2 Views CLINICAL INDICATION: SOB TECHNIQUE: Frontal and lateral views of the chest. COMPARISON: No relevant prior studies available. FINDINGS: LUNGS AND PLEURAL SPACES: Pulmonary venous congestion. No consolidation. No pneumothorax. HEART: Unremarkable. No cardiomegaly. MEDIASTINUM: Unremarkable. Normal mediastinal contour. BONES/JOINTS: Unremarkable. No acute fracture. RAD/Chest PA and Lateral IMPRESSION: Pulmonary venous congestion. Reading [facility] CC: ESEQUIEL Salmon; Dr. Babak Garcia DO ~ Recruiter Specialist: Signed [facility]02-26-2025 Telephone encounter Note* Telephone Encounter - Eunice Spivey RN - 12/08/2024 4:20 PM EST Ivett from [place] calls and states that she knows medication [...] Spivey RN December 08, 2024 4:21 PM [facility]02-26-2025 Miscellaneous Notes* Telephone Encounter - Eunice Spivey RN - 12/08/2024 4:20 PM EST Ivett from [place] calls and states that she knows medication [...] 08, 2024 4:21 PM documented in this encounterHolzer Hospital02-26-2025 Telephone encounter Note * Telephone Encounter - Frank Joya LPN - 12/08/2024 9:41 AM EST TC to pt, spoke with caregiver, Breanna. Notified of results/provider response. Breanna verbalized understanding. Frank Joya LPN [facility]02-26-2025 Miscellaneous Notes* Telephone Encounter - Frank Joya LPN - 12/08/2024 9:41 AM EST TC to pt, spoke with caregiver, Breanna. Notified of results/provider response. Breanna verbalized understanding. Frank Joya LPN * Telephone Encounter - Radha Batista APRN.CNP - 12/07/2024 5:40 PM EST Can please let patient know that her chest xray was normal. Radha Batista APRN.PAVITHRA documented in this encounterHolzer Hospital02-25-2025 Telephone encounter Note * Telephone Encounter - Radha Batista APRN.CNP - 12/07/2024 5:40 PM EST Can please let patient know that her chest xray was normal. Radha Batista APRN.CNP [facility]02-25-2025 History of Present illness Narrative* Katie [...] PATIENT PRESENTS WITH AN IMPLANTABLE OR ATTACHED HANDLE LATHE OPERATOR: No RADIOLOGY DEPARTMENT: General X-ray: Exam(s) Completed: Chest X-Ray PERIPHERAL IV DATA: Not applicable SIGNED BY: Nancy Pretty December 07, 2024 11:52 AM documented in this encounterHolzer Hospital02-25-2025 [facility]Prem[facility] Instructions* Patient Instructions* Radha Batista APRN.CNP - 12/07/2024 10:35 AM EST Get the chest xray. Start the tylenol 650 mg twice daily. Recheck in 2-4 weeks. documented in this encounterHolzer Hospital02-25-2025 NotePrem[facility]02-25-2025 History of Present illness Narrative* Radha Batista [...] HISTORY Diagnosis Date Bilateral pneumonia 07/23/2018 Admit [facility]: pneumococcal suspected, neg culture. 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 4 times [...] as needed for worsening/no improvement. Radha Batista APRN.PRINTING MECHANIST documented in this encounterHolzer Hospital02-21-2025 Telephone encounter Note * Telephone Encounter - Frank Joya LPN - 12/03/2024 3:10 PM EST Pt notified. She verbalized understanding. Frank Joya LPN [facility]02-21-2025 Miscellaneous Notes* Telephone Encounter - Frank [...] advise, Eunice Spivey RN documented in this encounterHolzer Hospital02-21-2025 Telephone encounter Note * Telephone Encounter - Radha Batista APRN.CNP - 12/03/2024 2:03 PM EST Ultrasound of the legs was normal. [address]21-2025 Telephone encounter Note* Telephone Encounter - Eunice Spivey RN - 12/03/2024 9:46 AM EST Patient calling and asking about ultrasound results. Please review and advise, Eunice Spivey RN [facility]02-17-2025 Telephone encounter Note* Telephone Encounter - Cristal White RN - 11/29/2024 8:57 AM EST Pts career technology teacher Breanna called in to go over dates and times of Pts upcoming appointments. Went over these with her and where the Vascular study was located. [facility]02-17-2025 Miscellaneous Notes* Telephone Encounter - Cristal White RN - 11/29/2024 8:57 AM EST Pts career technology teacher Breanna called in to go over dates and times of Pts upcoming appointments. Went over these with her and where the Vascular study was located. documented in this encounterHolzer Hospital02-13-2025 Telephone encounter Note * Telephone Encounter - Shelia Salmon APRN.CNP - 11/25/2024 5:41 PM EST The following approved medication requests have been transmitted electronically. Requested Prescriptions Pending Prescriptions Disp Refills docusate sodium (COLACE) 100 mg capsule 60 capsule 5 Sig: Take 1 capsule by mouth two times a day. Shelia Salmon APRN.CNP [facility]02-13-2025 Miscellaneous Notes* Telephone Encounter - Shelia [...] day. Shirley Romero RN documented in this encounterHolzer Hospital02-13-2025 Telephone encounter Note * Telephone Encounter [...] two times a day. Shirley Romero RN [facility]02-12-2025 Telephone encounter Note* Telephone Encounter - [...] of breath. Shirley Zuniga 2024 2:40 PM [facility]02-12-2025 Miscellaneous Notes* Telephone Encounter - Shirley [...] Zuniga 2024 2:40 PM documented in this encounterHolzer Hospital01-31-2025 [facility] Medical Records Department [address] [place] [address] Discharge Summary 11/12/24 1040 MR#: [id number] Acct: [id number] Name: BRENDA LE Rep #: [id number] : 1965 58 From: Ana Lilia Lebron DO PCP: ESEQUIEL Headley Status:DIS IN Location: [facility] [id number] Providers Date of Admission: 11/09/24 Date of [...] female presented to the emergency room at [facility] from a local half-way with fever and cough. She was seen at an urgent care and told to come to the emergency room when it was discovered that the support group manager stated they could not give her any [...] and inpatient treatment, she was admitted to [place] [address] and initially placed on 2 antibiotics, I evaluated the patient and did not feel she needed IV vancomycin and stop this medication. Patient improved during her hospitalization was weaned off oxygen eventually. On 11/12/2024, patient was seen and examined: On examination she appea (more content notincluded)...[facility]01-29-2025 Telephone encounter Note* Telephone Encounter - Frank Joya LPN - 11/10/2024 9:58 AM EST Phoned jesse Pollard /christian Huang, notified of provider instructions. She verbalized understanding. Frank Joya LPN [facility]01-29-2025 Miscellaneous Notes* Telephone Encounter - Frank [...] further. Nerissa Bedolla LPN documented in this encounterHolzer Hospital01-29-2025 Telephone encounter Note * Telephone Encounter - Radha Batista APRN.CNP - 11/10/2024 9:34 AM EST Thank you for the update. No, we did not have the mucinex on our medication list. I updated her medication list. Yes, can we please increase it to twice daily for 10 days, then resume the previous dose. Radha Batista APRN.PAVITHRA [facility]01-29-2025 Telephone encounter Note* Telephone Encounter - Nerissa Bedolla LPN - 11/10/2024 9:24 AM EST [facility]. PATIENT already takes 2 tablets every morning. Pharmacy is asking if you wish for patient to take the 2 tablets twice daily for just a shortperiod of time? They wanted to make sure the office knew patient was already taking 2 a day. Please review and advise further. Nerissa Bedolla LPN [facility]01-29-2025 Evaluation note* Diagnosis Onset Date Resolution Status Admit Date Schizophrenia acute October 11:49pm COPD exacerbation inactive November 09, 2024 11:49pm Hyponatremia inactive October 11:49pm Leukocytosis inactive October 11:49pm Obesity (BMI 30-39.9) inactive Marco Antonio uary 2024 11:49pm Pneumonia inactive November 09, 2024 11:49pm Respiratory insufficiency inactive November 09, 2024 11:49pm [facility] Work Phone: 1(708) 930-840701-28-2025 History of Present illness Narrative* Neelima Amador [...] PATIENT PRESENTS WITH AN IMPLANTABLE OR ATTACHED HANDLE LATHE OPERATOR: No RADIOLOGY DEPARTMENT: General X-ray: Exam(s) Completed: Chest X-Ray PERIPHERAL IV DATA: Not applicable SIGNED BY: RT Sandra(R) November 09, 2024 5:34 PM documented in this encounterHolzer Hospital01-28-2025 NotePrem[facility]01-28-2025 NotePrem[facility]01-28-2025 History of Present illness Narrative* Zaira Mancilla APRN.PRINTING MECHANIST - 11/09/2024 5:24 PM EST CC: Patient [...] treatment a day. She lives in a half-way and is accompanied with one of her [...] needles, DISPOSABLE, (PEN NEEDLE) 31 gauge x 5/16^Use one needle per dose. 4 times daily [...] leisaan- Teen yrs, but not now BP 122/80 [...] and frontal sinus tenderness present. Mouth/Throat: Lips: [place]. Mouth: Mucous membranes are moist. Pharynx: Posterior [...] symptoms. After the caregiver spoke to the half-way and pharmacy, it was decided to take the patient to [facility] ED due to the inability of securing the antibiotics this evening and administering breathing treatments required. Report called to [facility] ED, spoke with ED attending. 2. [...] A&B MOLECULAR (POC) Maty Atkinson TEACHING PROVIDER (Physician/PA/PLOW MECHANIC) NOTE OF PERSONAL INVOLVEMENT IN CARE: I have personally seen and examined the patient and performed the medical decision-making components. I have reviewed the Advanced Practice Registered Nurse (PLOW MECHANIC) Student's documentation and verified the findings in the note as written. Any additions or changes are noted in bold/italics. Signature: Zaira Mancilla Date: 11/09/2024 Time: 7:23 PM documented in this encounterHolzer Hospital01-28-2025 Telephone encounter Note * Telephone Encounter - Frank Joya LPN - 11/09/2024 4:08 PM EST Spoke /c territory sales professional at half-way, notified of provider response. She verbalized understanding. Frank Joya LPN [facility]01-28-2025 Miscellaneous Notes* Telephone Encounter - Frank Joya LPN - 11/09/2024 4:08 PM EST Spoke /c territory sales professional at half-way, notified of provider response. She verbalized understanding. [...] for something OTC can be sent to [place] as they can't give anything topatient that is not prescribed and she is asking for something for symptoms. Call back number is [phone]. Anusha Hansen RN * Telephone Encounter - [...] bad cholesterol is good! documented in this encounterHolzer Hospital01-28-2025 Telephone encounter Note * Telephone Encounter [...] a swab for covid/flu/rsv. Radha Batista APRN.PAVITHRA [facility]01-28-2025 Telephone encounter Note* Telephone Encounter - [...] for something OTC can be sent to [place] as they can't give anything topatient that is not prescribed and she is asking for something for symptoms. Call back number is [phone]. Anusha Hansen RN [facility]01-27-2025 Telephone encounter Note* Telephone Encounter - Татьяна Escobar MA - 11/08/2024 10:13 AM EST Tried to reach pt, line just rings. Will try again later. Татьяна Escobar MA [facility]01-24-2025 Telephone encounter Note* Telephone Encounter - [...] labwork non-fasting. Her bad cholesterol is good! [facility]01-21-2025 History of Present illness Narrative* Neelima [...] PATIENT PRESENTS WITH AN IMPLANTABLE OR ATTACHED HANDLE LATHE OPERATOR: No RADIOLOGY DEPARTMENT: General X-ray: Exam(s) Completed: Spine X-Ray(s): Lumbar AP / LAT / L5-S1 PERIPHERAL IV DATA: Not applicable SIGNED jamaica Reeves November 02, 2024 3:28 PM documented in this encounterHolzer Hospital01-21-2025 [facility]01-21-2025 Instructions* Patient Instructions* Radha Batista APRN.CNP - 11/02/2024 2:47 PM EST Get the labs. Get the xray. Schedule the circulation test. Increase the afternoon gabapentin to 200 mg. documented in this encounterHolzer Hospital01-21-2025 NotePrem[facility]01-21-2025 History of Present illness Narrative* Rad[facility]N.[facility] - 11/02/2024 2:07 PM EST This is [...] HISTORY Diagnosis Date Bilateral pneumonia 07/23/2018 Admit [facility]: pneumococcal suspected, neg culture. 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 4 times [...] improvement. Radha Batista APRN.PAVITHRA documented in this encounterHolzer Hospital01-17-2025 Telephone encounter Note * Telephone Encounter [...] Hansen RN October 29, 2024 11:51 AM [facility]01-17-2025 Miscellaneous Notes* Telephone Encounter - Anusha [...] 29, 2024 11:51 AM documented in this encounterHolzer Hospital12-23-2024 Telephone encounter Note * Telephone Encounter [...] mouth daily with breakfast. Shirley Romero RN [facility]12-23-2024 Miscellaneous Notes* Telephone Encounter - Shirley [...] breakfast. Shirley Romero RN documented in this encounterHolzer Hospital12-17-2024 Instructions* Patient Instructions* Radha Batista APRN.CNP - 09/28/2024 1:40 PM EST Increase the gabapentin to 3 times daily. Recheck in 3 months, sooner if needed. documented in this encounterHolzer Hospital12-17-2024 NotePrem[facility]12-17-2024 History of Present illness Narrative* Radha Batista APRN.CNP - 09/28/2024 1:09 PM EST This is [...] HISTORY Diagnosis Date Bilateral pneumonia 07/23/2018 Admit [facility]: pneumococcal suspected, neg culture. 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 4 times [...] as needed for worsening/no improvement. Radha Batista APRN.PRINTING MECHANIST documented in this encounterHolzer Hospital12-13-2024 Telephone encounter Note * Telephone Encounter [...] Spivey RN September 24, 2024 8:16 AM [facility]12-13-2024 Miscellaneous Notes* Telephone Encounter - Eunice [...] 24, 2024 8:16 AM documented in this encounterHolzer Hospital12-09-2024 NotePremier Health [facility]12-09-2024 History of Present illness Narrative* Fuentes Renee MD - 09/20/2024 1:03 PM EST Images from the original note were not included. Fuentes Renee MD Interventional Cardiology [address] [place] [address] [phone] Chief Complaint Patient presents with: yearly check [...] HISTORY Diagnosis Date Bilateral pneumonia 07/23/2018 Admit [facility]: pneumococcal suspected, neg culture. + rhinovirus [...] 1 capsule by mouth once daily. 30 [id number] aspirin, enteric coated (ASPIRIN, ENTERIC COATED) 325 [...] x 5/16 Use one needle per dose. 4 times [...] results found for: TSHREFL Prior Cardiac Testing EKG Assessment and Plan: [...] to correct any errors. documented in this encounterHolzer Hospital11-27-2024 Instructions* Patient Instructions* Radha Batista APRN.CNP - 09/08/2024 9:45 AM EST Start the gabapentin. Take nightly X 3 days, then increase to twice daily. Recheck in 3-4 weeks. documented in this encounterHolzer Hospital11-27-2024 [facility]11-27-2024 History of Present illness Narrative* Radha [...] a couple of times a day, but sometimes noteven that. Continues with lower leg pain. Below knees. She hasn't been wearing stockings. Unsure if they feel better without the stockings. Pain, aches. Restless legs. Has tried nsaids. Being on legs make it worse. PAST MEDICAL HISTORY: PAST MEDICAL HISTORY Diagnosis Date Bilateral pneumonia 07/23/2018 Admit [facility]: pneumococcal suspected, neg culture. 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 4 times [...] as needed for worsening/no improvement. Radha Batista APRN.PRINTING MECHANIST documented in this encounterHolzer Hospital11-19-2024 Telephone encounter Note * Telephone Encounter - Cristal White RN - 08/31/2024 9:39 AM EST Reina from [place] reports the Basaglar is no longer on [...] White RN August 31, 2024 9:42 AM [facility]11-19-2024 Miscellaneous Notes* Telephone Encounter - Cristal White RN - 08/31/2024 9:39 AM EST Reina from [place] reports the Basaglar is no longer on [...] 31, 2024 9:42 AM documented in this encounterHolzer Hospital11-12-2024 Note* Addendum Note - Shelia Salmon APRN.CNP - 08/24/2024 3:52 PM ESTAddended by: SHELIA SALMON on: 08/24/2024 03:52 PM Modules accepted: Orders [facility]11-12-2024 Miscellaneous Notes* Addendum Note - Shelia Salmon APRN.CNP - 08/24/2024 3:52 PM ESTAddended by: SHELIA SALMON on: 08/24/2024 03:52 PM Modules accepted: Orders documented in this encounterHolzer Hospital11-12-2024 Instructions* Patient Instructions* Shelia Salmon APRN.CNP - 08/24/2024 3:39 PM EST 1) Doxycyline 100 mg 2 x day for 10 days (take with food) 2) Hold iron (Ferex) while on doxycyline 3) Medrol taper 4) Follow up in 10-14 days documented in this encounterHolzer Hospital11-12-2024 NotePrem[facility]11-12-2024 History of Present illness Narrative* Shelia Salmon [...] lot during the day Lives in a half-way, whole house is sick Feels hot Appetite comes and goes Wheezing at night- uses albuterol Red rash in groin that itches and minaya PAST MEDICAL HISTORY: PAST MEDICAL HISTORY Diagnosis Date Bilateral pneumonia 07/23/2018 Admit [facility]: pneumococcal suspected, neg culture. 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 4 times [...] some red patches on face from mask [place] rash in groin with cracks in seam [...] improvement. Shelia Salmon APRN.CNP documented in this encounterHolzer Hospital11-08-2024 Telephone encounter Note * Telephone Encounter - Radha Batista APRN.CNP - 08/20/2024 1:17 PM EST Script sent. Radha Batista APRN.CNP [facility]11-08-2024 Miscellaneous Notes* Telephone Encounter - Radha Batista APRN.CNP - 08/20/2024 1:17 PM EST Script sent. Radha Batista APRN.CNP * Telephone Encounter - Carla Ayon LPN - 08/20/2024 8:19 AM EST Dorie from [facility] calls requesting a script for pt for a generic lancing device. The lancets go into this. Script pended. documented in this encounterHolzer Hospital11-08-2024 Telephone encounter Note * Telephone Encounter - Carla Ayon LPN - 08/20/2024 8:19 AM EST Dorie from [facility] calls requesting a script for pt for a generic lancing device. The lancets go into this. Script pended. [facility]11-06-2024 Telephone encounter Note* Telephone Encounter - Maye Ferrer LPN - 08/18/2024 1:43 PM EST Phoned spoke to Breanna and went over notes from Christian Batista INFORMATION SYSTEMS CONSULTANT with understanding. Aware rx sent to the pharmacy. [facility]11-06-2024 Miscellaneous Notes* Telephone Encounter - Maye Ferrer LPN - 08/18/2024 1:43 PM EST Phoned spoke to Breanna and went over notes from Christian Batista INFORMATION SYSTEMS CONSULTANT with understanding. Aware rx sent to the [...] inhaler as ordered. * Telephone Encounter - Ediila Monroe - 08/18/2024 8:22 AM EST [facility] Caller Name: Breanna Call Back Number [phone] Reason for Call: Other Medication question Additional Information: Breanna is asking if Brenda should still have the Rescue inhaler Albuterol sulfate 90 mcg. If so, she would need it refilled at [place] Please call Breanna back. documented in this encounterHolzer Hospital11-06-2024 Telephone encounter Note * Telephone Encounter - Radha Batista APRN.CNP - 08/18/2024 12:46 PM EST Yes, she should have a rescue inhaler for as needed. Script sent. Radha Batista APRN.CNP [facility]11-06-2024 Telephone encounter Note* Telephone Encounter - Adrianne Saldivar LPN - 08/18/2024 9:22 AM EST Patient does have an albuterol inhaler there but is . She is using her daily inhaler as ordered. [facility]11-06-2024 Telephone encounter Note* Telephone Encounter - Edilia Monroe - 08/18/2024 8:22 AM EST [facility] Caller Name: Breanna Call Back Number [phone] Reason for Call: Other Medication question Additional Information: Breanna is asking if Brenda should still have the Rescue inhaler Albuterol sulfate 90 mcg. If so, she would need it refilled at [place] Please call Breanna back. [facility] Work Phone: [phone] Telephone encounter Note* Telephone Encounter - Frank Joya LPN - 08/16/2024 6:14 PM EST Breanna notified. She verbalized understanding. Frank Joya LPN [facility]11-04-2024 Miscellaneous Notes* Telephone Encounter - Frank Joya LPN - 08/16/2024 6:14 PM EST Breanna notified. She verbalized understanding. Frank Joya LPN * Telephone Encounter - Radha Batista APRN.CNP - 08/16/2024 6:07 PM EST Script sent. Radha Batista APRN.PRINTING MECHANIST * Telephone Encounter - Edilia Monroe - 08/16/2024 4:21 PM EST [facility] Caller Name: Breanna Call Back Number [phone] Reason for Call: Order for Cough Drops Additional Information: Breanna is calling because the half-way is unable to give the residents any medication without an order and they would like to provide her with cough drops as necessary. They are asking if it be generic in type and if not a [place] type product. [facility]. documented in this encounterHolzer Hospital11-04-2024 Telephone encounter Note * Telephone Encounter - Radha Batista APRN.CNP - 08/16/2024 6:07 PM EST Script sent. Radha Batista APRN.PAVITHRA [facility]11-04-2024 Telephone encounter Note* Telephone Encounter - Edilia Monroe - 08/16/2024 4:21 PM EST [facility] Caller Name: Breanna Call Back Number [phone] Reason for Call: Order for Cough Drops Additional Information: Breanna is calling because the half-way is unable to give the residents any medication without an order and they would like to provide her with cough drops as necessary. They are asking if it be generic in type and if not a [place] type product. [facility]. [facility] Work Phone: [phone] Telephone encounter Note* Telephone Encounter - Shirley [...] at bedtime. For cholesterol. Shirley Romero RN [facility]10-25-2024 Miscellaneous Notes* Telephone Encounter - Shirley [...] cholesterol. Shirley Romero RN documented in this encounterHolzer Hospital10-19-2024 Telephone encounter Note * Telephone Encounter [...] have any questions, you can call Nurse installation manager back. [facility]10-19-2024 Miscellaneous Notes* Telephone Encounter - Barbara [...] have any questions, you can call Nurse installation manager back. documented in this encounterHolzer Hospital10-19-2024 Telephone encounter Note * Telephone Encounter - Joselyn Hendricks MA - 07/31/2024 11:31 AM EDT Jaime, caregiver informed and given instruction. She verbalized understanding. Joselyn Hendricks MA [facility]10-19-2024 Miscellaneous Notes* Telephone Encounter - Joselyn [...] - 07/31/2024 11:06 AM EDT Jaime patient medication care manager calling patient had taken another half-way patient medications before 8am when she came [...] this morning. Please advise documented in this encounterHolzer Hospital10-19-2024 Telephone encounter Note * Telephone Encounter - Aleksandar Jones MD - 07/31/2024 11:28 AM EDT See if can monitor bp and heart rate at least twice today. If increased sedation, chest pain, dizziness etc, to ER [facility]10-19-2024 Telephone encounter Note* Telephone Encounter - Maye Ferrer LPN - 07/31/2024 11:06 AM EDT [place] patient medication care manager calling patient had taken another half-way patient medications before 8am when she came [...] own medications also this morning. Please advise [facility]10-19-2024 Telephone encounter Note* Telephone Encounter - [...] notified of above and conferenced to caller. [facility]10-19-2024 Miscellaneous Notes* Telephone Encounter - Malcolm [...] and conferenced to caller. documented in this encounterHolzer Hospital10-17-2024 Telephone encounter Note * Telephone Encounter - Petrona Jaimes RN - 07/29/2024 2:13 PM EDT Breanna, caregiver at [facility] calling with request for script for new pair of compression stockings. Pended per previous order. Petrona Jaimes RN [facility]10-17-2024 Miscellaneous Notes* Telephone Encounter - Petrona Jaimes RN - 07/29/2024 2:13 PM EDT Breanna, caregiver at [facility] calling with request for script for new pair of compression stockings. Pended per previous order. Petrona Jaimes RN documented in this encounterHolzer Hospital10-11-2024 [facility]Prem[facility] History of Present illness Narrative* Adriano Menezes, ADIEL.PRINTING MECHANIST - 07/23/2024 9:09 AM EDT Subjective HPI [...] HISTORY Diagnosis Date Bilateral pneumonia 07/23/2018 Admit [facility]: pneumococcal suspected, neg culture. 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 4 times [...] agrees with plan of care. Adriano Menezes APRN.PRINTING MECHANIST documented in this encounterHolzer Hospital10-10-2024 Telephone encounter Note * Telephone Encounter - Tonie Escobar MA - 07/22/2024 10:41 AM EDT Breanna was notified Tonie Escobar MA [facility]10-10-2024 Miscellaneous Notes* Telephone Encounter - Tonie [...] advise, Eunice Spivey RN documented in this encounterHolzer Hospital10-10-2024 Telephone encounter Note * Telephone Encounter - Shelia Salmon APRN.CNP - 07/22/2024 10:27 AM EDT They do not need to check blood pressure every day. Maybe once a week would be good. As you alreadyknow, no fast acting insulin at bedtime. [facility]10-10-2024 Telephone encounter Note* Telephone Encounter - [...] Please review and advise, Eunice Spivey RN [facility]10-02-2024 Telephone encounter Note* Telephone Encounter - Adrianne Saldivar LPN - 07/14/2024 2:20 PM EDT Clarified with staff at facility. [facility]10-02-2024 Miscellaneous Notes* Telephone Encounter - Adrianne [...] This [facility]. Last dose is at dinner. They are questioning if pt needs to be taking this at bedtime and if so what is the sliding scale to go along with this. Please advise Anna. Brandy Mark LPN documented in this encounterHolzer Hospital10-02-2024 Telephone encounter Note * Telephone Encounter - Aleksandar Jones MD - 07/14/2024 12:34 PM EDT It should be as written in [facility]. No hs dose. [facility]10-02-2024 Telephone encounter Note* Telephone Encounter - Brandy Mark LPN - 07/14/2024 11:17 AM EDT Breanna with with [facility] calling regarding pt's insulin Humalog. They have on orders to be giving the above 4 times per day but it does not mention this to be takenat bedtime. This is not [facility] the [facility]. Last dose is at dinner. They are questioning if pt needs to be taking this at bedtime and if so what is the sliding scale to go along with this. Please advise Anna. Brandy Mark LPN [facility]09-27-2024 Telephone encounter Note* Telephone Encounter - [...] Ordonez LPN July 09, 2024 8:50 AM [facility]09-27-2024 Miscellaneous Notes* Telephone Encounter - Angi [...] 09, 2024 8:50 AM documented in this encounterHolzer Hospital09-24-2024 Note* Addendum Note - Radha Batista APRN.CNP - 07/06/2024 6:07 PM EDTAddended by: RADHA BATISTA on: 07/06/2024 06:07 PM Modules accepted: Orders [facility]09-24-2024 Miscellaneous Notes* Addendum Note - Radha Batista APRN.CNP - 07/06/2024 6:07 PM EDTAddended by: RADHA BATISTA on: 07/06/2024 06:07 PM Modules accepted: Orders documented in this encounterHolzer Hospital09-24-2024 Instructions* Patient Instructions* Radha Batista APRN.CNP - 07/06/2024 3:21 PM EDT Return for fasting labwork. Recheck in 3 months, sooner if needed. documented in this encounterHolzer Hospital09-24-2024 History of Present illness Narrative* Radha [...] on trazodone -- refers that she was mixed up in the brains and real tired. She is off of that now. + LIDA and uses CPAP. Refers that she is told that she needs a new machine. Schizophreniform disorder. Refers due for invega shot. Due tomorrow. Follows with psychiatry. Feels sad at times. Doesn't like living at the half-way. COPD: Follows with Dr. Ramirez. Stable on inhalers. HTN: No CP. Occ SOB d/t COPD.r Diabetes: Sugars have been improved with adding of the sliding scale. Due for A1C. PAST MEDICAL HISTORY: PAST MEDICAL HISTORY Diagnosis Date Bilateral pneumonia 07/23/2018 Admit [facility]: pneumococcal suspected, neg culture. + rhinovirus [...] x 5/16 Use one needle per dose. 4 times [...] 6MO-64YR, TRIVALENT (AFLURIA, FLULAVAL, FLUVIRIN, FLUZONE) - [employer] COVID-19 VACCINE AGE 12+ YR 3. Fatigue, [...] as needed for worsening/no improvement. Radha Batista APRN.PRINTING MECHANIST documented in this encounterHolzer Hospital09-24-2024 NotePremier [facility]09-05-2024 Telephone encounter Note* Telephone Encounter - Shelia [...] mouth daily with breakfast. Shelia Salmon APRN.CNP [facility]09-05-2024 Miscellaneous Notes* Telephone Encounter - Shelia [...] breakfast. Shirley Romero RN documented in this encounterHolzer Hospital09-05-2024 Telephone encounter Note * Telephone Encounter [...] mouth daily with breakfast. Shirley Romero RN [facility]09-04-2024 Telephone encounter Note* Telephone Encounter - Loree Chen RN - 06/16/2024 8:26 AM EDT Pharmacy electronically requests the following refill(s) Requested Prescriptions Pending Prescriptions Disp Refills metoprolol succinate ER (TOPROL XL) 25 mg 24 hr tablet [Pharmacy Med Name: Metoprolol Succinate ER 25MG TB24] 30 tablet Sig: take 1 tablet by mouth every evening Loree Chen RN [facility]09-04-2024 Miscellaneous Notes* Telephone Encounter - Loree Chen RN - 06/16/2024 8:26 AM EDT Pharmacy electronically requests the following refill(s) Requested Prescriptions Pending Prescriptions Disp Refills metoprolol succinate ER (TOPROL XL) 25 mg 24 hr tablet [Pharmacy Med Name: Metoprolol Succinate ER 25MG TB24] 30 tablet Sig: take 1 tablet by mouth every evening Loree Chen RN documented in this encounterHolzer Hospital08-28-2024 Telephone encounter Note * Telephone Encounter [...] Ferrer LPN June 09, 2024 10:05 AM [facility]08-28-2024 Miscellaneous Notes* Telephone Encounter - Maye [...] 09, 2024 10:05 AM documented in this encounterHolzer Hospital08-08-2024 Telephone encounter Note * Telephone Encounter - Cristal White RN - 05/20/2024 8:49 AM EDT Laxmi with [facility] called and is notified of providers message. She voices understanding. Cristal White RN [facility]08-08-2024 Miscellaneous Notes* Telephone Encounter - Cristal [...] member. Brandy Mark LPN documented in this encounterHolzer Hospital08-07-2024 Telephone encounter Note * Telephone Encounter - Aleksandar Jones MD - 05/19/2024 4:57 PM EDT Sent over new script [facility]08-07-2024 Telephone encounter Note* Telephone Encounter - Brandy Mark LPN - 05/19/2024 2:43 PM EDT Breanna Sydney. with [facility] she is with pt and [...] Breanna or staff member. Brandy Mark LPN [facility]08-06-2024 Telephone encounter Note* Telephone Encounter - [...] Spivey RN May 18, 2024 1:15 PM [facility]08-06-2024 Miscellaneous Notes* Telephone Encounter - Eunice [...] 18, 2024 1:15 PM documented in this encounterHolzer Hospital07-22-2024 Telephone encounter Note * Telephone Encounter - Alma Smart RN - 05/03/2024 12:02 PM EDT [facility] reports insurance will not cover the metronidazole 1%. The insurance is saying they will cover the preferred, which is metronidazole 0.75% Pended. [facility]07-22-2024 Miscellaneous Notes* Telephone Encounter - Alma Smart RN - 05/03/2024 12:02 PM EDT [facility] reports insurance will not cover the metronidazole 1%. The insurance is saying they will cover the preferred, which is metronidazole 0.75% Pended. documented in this encounterHolzer Hospital07-22-2024 Telephone encounter Note * Telephone Encounter [...] Smart RN May 03, 2024 8:51 AM [facility]07-22-2024 Miscellaneous Notes* Telephone Encounter - Alma [...] 03, 2024 8:51 AM documented in this encounterHolzer Hospital07-05-2024 Telephone encounter Note * Telephone Encounter [...] Smart RN April 16, 2024 1:45 PM [facility]07-05-2024 Miscellaneous Notes* Telephone Encounter - Alma [...] 16, 2024 1:45 PM documented in this encounterHolzer Hospital07-05-2024 Telephone encounter Note * Telephone Encounter [...] Spivey RN April 16, 2024 8:43 AM [facility]07-05-2024 Miscellaneous Notes* Telephone Encounter - Eunice [...] 16, 2024 8:43 AM documented in this encounterHolzer Hospital07-03-2024 Instructions* Patient Instructions* Radha Batista APRN.PRINTING MECHANIST - 04/14/2024 1:45 PM EDT Start the bactroban ointment three times daily for a week. Let us know if no better/worsening. Make sure to discuss fatigue with sleep medicine next week to see if another sleep study is indicated. documented in this encounterHolzer Hospital07-03-2024 History of Present illness Narrative* Radha [...] HISTORY Diagnosis Date Bilateral pneumonia 07/23/2018 Admit [facility]: pneumococcal suspected, neg culture. + rhinovirus [...] x 5/16 Use one needle per dose. 4 times [...] agrees with the plan. documented in this encounterHolzer Hospital06-20-2024 History of Present illness Narrative* JacquieAmber murciant, PT - 04/01/2024 2:25 PM EDT Images [...] and treatment included: Therapeutic exercise, Neuromuscular re-education, Self-fpc management, Gait training, Patient/Family/Caregiver Education, and General [...] is better since starting PT. She states, my legs don't feel like I have weights on my legs. She reports compliance with HEP 2x day [...] assessed.) 2: B forward step ups on 6 step in // bars 2x10 each with [...] [address] Davis PT documented in this encounterHolzer Hospital06-18-2024 History of Present illness Narrative* oLng Davis PT - 03/30/2024 12:19 PM EDT [...] exercises.) 2: B forward step ups on 6 step outside // bars 2x12 each with [...] [address] PT documented in this encounterHolzer Hospital06-18-2024 Instructions* Patient Instructions* Radha Batista APRN.CNP - 03/30/2024 9:16 AM EDT Continue the same medication. Get labs. Recheck in 3 months. documented in this encounterHolzer Hospital06-18-2024 History of Present illness Narrative* Radha [...] HISTORY Diagnosis Date Bilateral pneumonia 07/23/2018 Admit [facility]: pneumococcal suspected, neg culture. + rhinovirus [...] x 5/16 Use one needle per dose. 4 times [...] as needed for worsening/no improvement. Radha Batista APRN.PRINTING MECHANIST documented in this encounterHolzer Hospital06-13-2024 History of Present illness Narrative* Long [...] LEVEL OF FUNCTION: TREATMENT: Therapeutic Exercise: 1: Hard Candy CasesFit StepOne seat #10 x7 minutes to focus on endurance (1:1 throughout. Discussed current exercises.) 2: B forward step ups on 6 step outside // bars 2x10 each with [...] Session Stop Time : 1218 Jaci Brady STOCKROOM KEEPER Long Davis PT documented in this encounterHolzer Hospital06-11-2024 History of Present illness Narrative* Long [...] reviewed.) 2: B forward step ups on 6 step outside // bars 2x10 each with [...] [address] PT documented in this encounterHolzer Hospital06-07-2024 Telephone encounter Note * Telephone Encounter - Frank Joya LPN - 03/19/2024 3:48 PM EDT Ivett @ [facility] notified. Frank Joya LPN [facility]06-07-2024 Miscellaneous Notes* Telephone Encounter - Frank Joya LPN - 03/19/2024 3:48 PM EDT Ivett @ [facility] notified. Frank Joya LPN * Telephone Encounter - Radha Batista APRN.PRINTING MECHANIST - 03/19/2024 3:29 PM EDT Actually, changed the insulin to just three times daily with meals. Can please let pharmacy know. Radha Batista APRN.CNP * Telephone Encounter - Anusha Hansen RN - 03/19/2024 3:10 PM EDT Ivett with [facility] calls to request updated orders for lancets, [...] advise. Anusha Hansen RN documented in this encounterHolzer Hospital06-07-2024 Telephone encounter Note * Telephone Encounter - Delfina Burns LPN - 03/19/2024 3:29 PM EDT Caregiver given below information. [facility]06-07-2024 Telephone encounter Note* Telephone Encounter - Radha Batista APRN.CNP - 03/19/2024 3:29 PM EDT Actually, changed the insulin to just three times daily with meals. Can please let pharmacy know. Radha Batista APRN.CNP [facility]06-07-2024 Miscellaneous Notes* Telephone Encounter - Delfina [...] time). New orders have been sent to [facility]. Please call us with sugars in 1 [...] 12:16 PM EDT Left a message with half-way for someone to call and speak with [...] feeling well. [facility] [...] Thanks, Jaci Brady PTA documented in this encounterHolzer Hospital06-07-2024 Telephone encounter Note * Telephone Encounter [...] for review. Please advise. Anusha Hansen, RN [facility]06-07-2024 Telephone encounter Note* Telephone Encounter - Frank Joya LPN - 03/19/2024 2:31 PM EDT LM with [facility] to return call to office. Please notify of the following when she returns call to office. Increase Basaglar to 60units at 4pm. Restart Humalog per sliding scale. Check sugars three times daily and call with readings in 1 week. Frank Joya LPN [facility]06-07-2024 Telephone encounter Note* Telephone Encounter - Radha Batista APRN.CNP - 03/19/2024 2:24 PM EDT Can we please call the assisted living and review new orders with them. (The computer system was down at the time of the office visit and was unable to complete at that time). New orders have been sent to [facility]. Please call us with sugars in 1 week after updating her medication regimen and with status update. Radha Batista APRN.PAVITHRA [facility]06-07-2024 History of Present illness Narrative* Radha Batista APRN.CNP - 03/19/2024 8:50 AM EDT This is [...] but it never made it to the [facility] where she lives. PAST MEDICAL HISTORY: PAST MEDICAL HISTORY Diagnosis Date Bilateral pneumonia 07/23/2018 Admit [facility]: pneumococcal suspected, neg culture. + rhinovirus [...] - PEN NEEDLE, DIABETIC 31 GAUGE X 5/16 - BLOOD SUGAR DIAGNOSTIC STRIPS - BLOOD-GLUCOSE [...] as needed for worsening/no improvement. Radha Batista APRN.PRINTING MECHANIST documented in this encounterHolzer Hospital06-06-2024 Telephone encounter Note * Telephone Encounter - Alma Smart RN - 03/18/2024 12:45 PM EDT [facility]- [facility]- returned call. Given message from PTMeghan Crook [...] Radha. Schedule appt for tomorrow with Radha. [facility]06-06-2024 Telephone encounter Note* Telephone Encounter - Adrianne Saldivar LPN - 03/18/2024 12:16 PM EDT Left a message with half-way for someone to call and speak with nurse. [facility]06-06-[facility] Telephone encounter Note* Telephone Encounter - Aleksandar Jones MD - 03/18/2024 12:07 PM EDT See below. Can we triage. Likely needs to see one of us [facility]06-06-2024 Telephone encounter Note* Telephone Encounter - [...] out to her. Thanks, Jaci Brady PTA [facility]06-06-2024 History of Present illness Narrative* Je Ty, PT - 03/18/2024 11:53 AM EDT Pt arrived to therapy, but was not seen for a treatment today. Pt stated she was not feeling well (felt very weak and achy and had a stomach ache) and had a pale color to her face.Communicated with pt's career technology teacher that is was in the best interest of the pt to not complete a treatment today. MELINDA Del Toro PT documented in this encounterHolzer Hospital06-04-2024 History of Present illness Narrative* Long [...] Patient to be seen for Therapeutic exercise (27722), Neuromuscular re-education (54180), Manual therapy (72921), Therapeutic activities (22836), Self-fpc management (49468), Gait Training (82435), Patient/Family/Caregiver Education, Body Mechanics Training, General Conditioning, [...] minutes 2: B forward step ups on 6 step in // bars 2x10 each 3: [...] [address] PT documented in this encounterHolzer Hospital05-31-2024 Telephone encounter Note * Telephone Encounter - Rolf Herrera DO - 03/12/2024 3:01 PM EDT Greg I was called last evening by nurse senior sales operations analyst regarding your patient who lives at a half-way and is currently on medication for diabetes [...] sugars. All the best Thank you Rolf [facility] Work Phone: 1(452) 308-410505-31-2024 Miscellaneous Notes* Telephone Encounter - Rolf Herrera DO - 03/12/2024 3:01 PM EDT Greg I was called last evening by nurse senior sales operations analyst regarding your patient who lives at a half-way and is currently on medication for diabetes [...] best Thank you Rolf documented in this encounterHolzer Hospital05-24-2024 Telephone encounter Note * Telephone Encounter - Cristal White RN - 03/05/2024 4:15 PM EDT Melony Pts guardian called and is notified of providers results and instructions. She voices understanding. Faxed copy of Pts medication list and lab orders to her at fax # [phone]. Cristal White RN [facility]05-24-2024 Miscellaneous Notes* Telephone Encounter - Cristal White RN - 03/05/2024 4:15 PM EDT Melony Pts guardian called and is notified of providers results and instructions. She voices understanding. Faxed copy of Pts medication list and lab orders to her at fax # [phone]. Cristal White RN * Telephone Encounter - Radha Batista APRN.PAVITHRA - 03/05/2024 1:16 PM EDT Can please [...] 2-4 weeks. Orders are in. Radha Batista APRN.PRINTING MECHANIST documented in this encounterHolzer Hospital05-24-2024 Telephone encounter Note * Telephone Encounter [...] weeks. Orders are in. Radha Batista APRN.PAVITHRA [facility]05-23-20[facility] History of Present illness Narrative* Long [...] she is doing okay today. Pt states I feel like I have weight on my legs today Pain: Pain Pain Level: (No value given) Pain Location: Leg - Left, Leg - Right Post Treatment Pain Post Treatment Pain Level: No Change Post Treatment Pain Location: Leg - Right, Leg - Left OBJECTIVE MEASURES WITH LEVEL OF FUNCTION: TREATMENT: Therapeutic Exercise: 1: Hard Candy CasesFit StepOne seat #10 x5 minutes (1:1 throughout, discussed current status.) 2: B forward step ups on 4 step in // bars 2x10 3: Seated [...] MELINDA Del Toro PT documented in this encounterHolzer Hospital05-21-2024 History of Present illness Narrative* Long [...] were made. Pain: Pain Description: (legs are tired and weak) Frequency: Intermittent Post Treatment Pain Post Treatment [...] 2x10 6: B forward step ups on 4 step in // bars 2x10 7: Seated [...] [address] PT documented in this encounterHolzer Hospital05-21-2024 Instructions* Patient Instructions* Radha Batista APRN.CNP - 03/02/2024 9:27 AM EDT Stop the celebrex. Start the relafen. Get labs/urine. Recheck in 1 month, sooner if needed. documented in this encounterHolzer Hospital05-21-2024 History of Present illness Narrative* Radha [...] HISTORY Diagnosis Date Bilateral pneumonia 07/23/2018 Admit [facility]: pneumococcal suspected, neg culture. 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 Radha Batista APRN.PRINTING MECHANIST documented in this encounterHolzer Hospital05-16-2024 History of Present illness Narrative* Long [...] SUBJECTIVE: Pt reports that her legs are still bothering me and I am very tired. She wonders if this is caused by [...] [address] PT documented in this encounterHolzer Hospital05-14-2024 Telephone encounter Note * Telephone Encounter [...] Please advise. Thank you. Edel East RN. [facility]05-14-2024 Miscellaneous Notes* Telephone Encounter - Edel [...] you. Edel East RN. documented in this encounterHolzer Hospital05-14-2024 History of Present illness Narrative* Long [...] Continue with LE strengthening. SUBJECTIVE: Pt states, my legs feel kind of funny, like I can't walk. At 4p.m. every day her R knee [...] Session Stop Time : 1140 Jaci Brady, STOCKROOM KEEPER Long Davis PT documented in this encounterHolzer Hospital05-09-2024 History of Present illness Narrative* Long [...] Patient to be seen for Therapeutic exercise (00069), Neuromuscular re-education (31902), Manual therapy (46247), Therapeutic activities (95953), Self-fpc management (49192), Gait Training (74693), Patient/Family/Caregiver Education, Body Mechanics Training, General Conditioning, [...] but that her sleep is still interrupted somoetimes by LE symptoms. She reports and demonstrates [...] Davis PT - 02/19/2024 9:55 AM EDT Program_ID:[id number] Access Code: [email or web address] URL: [email or web address] Date: 02-19-2024 Prepared By: Long Davis Program [...] sets - 10 reps documented in this encounterHolzer Hospital05-07-2024 History of Present illness Narrative* Jaci Brady PTA - 02/17/2024 9:07 AM EDT Program_ID:[id number] Access Code: [email or web address] URL: [email or web address] Date: 02-17-2024 Prepared By: Long Davis Program [...] Session Stop Time : 922 Jaci Brady, STOCKROOM KEEPER Long Davis PT documented in this encounterHolzer Hospital05-02-2024 History of Present illness Narrative* Long [...] At end ptstated' My legs feel like jell-o) 2: supine LTR 2x10 3: supine B [...] MELINDA Del Toro PT documented in this encounterHolzer Hospital04-30-2024 History of Present illness Narrative* Long [...] [address] Davis PT documented in this encounterHolzer Hospital04-25-2024 History of Present illness Narrative* Long [...] her CPAP last night and she feels funny today. Unable to describe exactly what she means by funny. Pt reports that she had some back [...] MELINDA Del Toro PT documented in this encounterHolzer Hospital04-24-2024 Telephone encounter Note * Telephone Encounter - Alma Smart RN - 02/04/2024 4:55 PM EDT Phoned patient and given provider's message below. Patient didn't understand and asked this nurse to give the message to Peg. Reports Peg works there. Gave message to Peg with verbalized understanding. [facility] Miscellaneous Notes* Telephone Encounter - Alma [...] Kwikpen -Tresiba -Tresiba flextouch Tonie Escobar MA documented in [place] encounterStacey [place] [address]-24-2024 Telephone encounter Note * Telephone Encounter - Aleksandar Jones MD - 02/04/2024 4:27 PM EDT Rx sent. Let her know had to change it [facility] Telephone encounter Note* Telephone Encounter - Tonie Escobar MA - 02/04/2024 2:52 PM EDT Insurance faxed letter stating Lantus Solostar no longer covered . Please choose alternative below and send -Basaglar Kwikpen -Tresiba -Tresiba flextouch Tonie Escobar MA [facility]04-[facility] History of Present illness Narrative* Long [...] Davis PT - 02/03/2024 3:11 PM EDT Program_ID:[id number] Access Code: [email or web address] URL: [email or web address] Date: 02-03-2024 Prepared By: Long Davis Program [...] sets - 10 reps documented in this encounterHolzer Hospital04-18-2024 Miscellaneous Notes* Telephone Encounter - Alma [...] you. Alma Smart RN. documented in this encounterHolzer Hospital04-10-2024 History of Present illness Narrative* Long [...] Planned: 12 Planned Treatment Interventions: Therapeutic exercise (93887), Neuromuscular re- education (70166), Manual therapy (52243), Therapeutic activities (23406), Self- fpc management (85558), Gait Training (88679), Patient/Family/Caregiver Education, Body Mechanics Training, General Conditioning, [...] Home Environment Patient Lives With: Facility Care (senior living with 5 other ladies that stress me out) Assistance Available: 24-Hour Home Type: Multi-Level Entry [...] Equina Syndrome Clinical Reasoning: Proceed with caution (I go alot) Red Flags - Cervical Cancer Clinical Reasoning: No identified risk factors. Infection Clinical Reasoning: No identified risk factors. Spine History Symptoms Location at Onset: Calf Symptoms Since Onset: Unchanging Pain is Worse Always: Walking (I have difficulty walking) Pain is Better Sometimes: Sitting Sleeping Position: Side lying right, Side lying left Sleep Affected by Pain: Pain keeps from falling asleep Pain: Pain Pain Level: 5 Pain Location: Calf - Right, Calf - Left Description: Aching Frequency: Intermittent (when I lay down they start to ache) Post Treatment Pain Post Treatment Pain Level: [...] Davis PT - 01/21/2024 11:21 AM EDT Program_ID:[id number] Access Code: [email or web address] URL: [email or web address] Date: 01-21-2024 Prepared By: Long Davis Program Notes Exercises - Hooklying Single Knee to Chest Stretch - 3 x daily - 7 x weekly - sets - 3 reps - Supine Double Knee to Chest Modified - 1 x daily - 7 x weekly - sets - 3 reps documented in this encounterHolzer Hospital04-02-2024 Instructions* Patient Instructions* Radha Batista APRN.[facility] - 01/13/2024 9:45 AM EDT Start the saline spray to the nose twice daily. Stop the meloxicam. Start the celebrex (celecoxib) once daily (for leg pain). Start the docusate twice daily (for constipation). Schedule w/ physical therapy to help with the legs. documented in this encounterHolzer Hospital04-02-2024 History of Present illness Narrative* Radha Batista APRN.PRINTING MECHANIST - 01/13/2024 9:18 AM EDT This is [...] HISTORY Diagnosis Date Bilateral pneumonia 07/23/2018 Admit [facility]: pneumococcal suspected, neg culture. 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 For 7 nights. Rwdzm-1-AGW-EPA-Fish Oil (FISH OIL) 300-1,000 mg cap Take [...] Once per day. Lancing Device with Lancets (Ernie's PLUS LANC DEV) Check blood sugars twice [...] as needed for worsening/no improvement. Radha Batista APRN.PRINTING MECHANIST documented in this encounterHolzer Hospital03-02-2024 Discharge summary Author Jey Quesada [facility] December 13, 2023 11:08pm Note Date/Time December 13, 2023 6:24 pm [facility] Medical Records Department [address] [place] [address] Emergency Department Summary 12/13/23 MR#: [id number] Acct: [id number] Name: BRENDA LE Rep #:[id number] : 1965 58 From: Jey Quesada DO [...] she might of came down with a flu bug. Patient states has been some women at the facility coughing and sneezing. Patient does state that she has some abdominal pain which is diffuse and she describes it as crampy. Patient states that she has not vomited and she has not had diarrhea. Denies urinary or vaginal complaints. Past abdominal surgeries include cholecystectomy. No history of bowel obstruction. [facility] Medical History Anxiety and depression [...] mandibular surgery Social History housing: other details: senior living. Smoking Status: Former smoker how long ago [...] She tested negative today. Will give hersome Melissaan as well for home to help with [...] 83.5 H Lymph % (Auto) 8.5 L [place] % (Auto) 7.2 Eos % (Auto) 0.3 [...] Clarity Clear Urine pH 6.0 Ur Specific Starke 1.010 Urine Protein Negative Urine Glucose (UA) [...] your Primary Care Provider. Call [facility] ([phone]) or report to the closest Emergency Room. Call 911 if necessary. 12/13/232307 <Electronically signed by Jey Quesada DO> Cosigner Signature (if applicable): CC: Dr. Aleksandar Jones MD ~ Signed [facility] Work Phone: 1(494) 633-610902-20-2024 Miscellaneous Notes* Telephone Encounter - Shanell Estes [...] you. Shanell Estes LPN. documented in this encounterHolzer Hospital02-08-2024 Miscellaneous Notes* Telephone Encounter - Edel Katz LPN - 11/20/2023 8:47 AM EST Patient notified of results, verbalizes understanding of instructions. Edel Katz LPN * Telephone Encounter - Meredith Moore APRN.PAVITHRA - 11/20/2023 7:23 AM EST Can you please call the patient and let her know I reviewed her lab results. Additional labs were normal, calcium is at normal levels. No further testing needed at this time. Please let me know if she has any questions. Thank you. Meredith Moore APRN.PRINTING MECHANIST documented in this encounterHolzer Hospital12-11-2023 History of Present illness Narrative* Fuentes Renee MD - 09/22/2023 3:56 PM EST Images from the original note were not included. Fuentes Renee MD Interventional Cardiology [address] [place] [address] Chief Complaint Patient presents with: Established Patient [...] HISTORY Diagnosis Date Bilateral pneumonia 07/23/2018 Admit [facility]: pneumococcal suspected, neg culture. + rhinovirus [...] bedtime. For 7 nights. 7 Suppository 0 Fhctx-7-RGS-EPA-Fish Oil (FISH OIL) 300-1,000 mg cap Take [...] 1 capsule by mouth once daily. 30 imrcork97 guaiFENesin (MUCINEX) 600 mg 12 hr tablet [...] bedtime. 10mL 5 Lancing Device with Lancets (Ernie's PLUS LANC DEV) Check blood sugars twice [...] to correct any errors. documented in this encounterHolzer Hospital11-29-2023 Miscellaneous Notes* Telephone Encounter - Joselyn [...] 141, 3 p: 145, 8 p: 235 11-26: f: 155, 11 a: 108, 3 p: [...] now, patient is running out. Please advise Leola and Leola will notify Fransisca. * Telephone Encounter - Shelia Roman LPN - 09/09/2023 4:31 PM EST Left message for Fransisca to return call * Telephone Encounter - Nissa Ybarra OCCA - 09/09/2023 2:35 PM EST TC to patients medical case manager, Leola, to question frequency of BG readings. Leola states that Brenda recently had COPD exacerbation and was given prednisone. She believed that's why BG was high, she has been taking regular dose of insulin plus sliding scale. Leola reports patients BG is back to her normal readings. Leola unable to verify frequency of BG monitoring and states Fransisca from [facility] these and to contact her at [phone] after 4 PM for additional information. CHRIS Antunez * Telephone Encounter - Aleksandar Jones MD - 09/09/2023 1:46 PM EST Can we verify with half-way. I have her being testing two times a day * Telephone Encounter - Yany Richardson - 09/09/2023 1:32 PM EST Brenda is calling Aleksandar Joens MD today [place] Director [facility] [place] due to she needs our office to call and confirm the diabetic information for the patient. The [facility] told her they are testing the patient 5 times per day. They will need new prescriptions for test stripsand lancets. Please call back. Patient has been identified by name and birthdate. Closing statement: Results or non-symptom based questions: Thank you for [facility], your call will be returned within the next business day. Yany Zuniga documented in this encounterHolzer Hospital11-29-2023 Miscellaneous Notes* Telephone Encounter - Maye [...] Value 04/29/2023 114 03/12/2019 Test sent to [facility]. Non HDL Cholesterol (mg/dL) Date Value 08/21/2022 118 07/26/2020 132 Blood Pressure: BUN (mg/dL) Date Value 04/29/2023 14 07/19/2021 8 Sodium (mmol/L) Date Value 04/29/2023 135 07/19/2021 133 Last 1 Encounter BP Readings: Date: BP: 08/29/2023 118/72 Please advise. Thank you. Maye Ferrer LPN. documented in this encounterHolzer Hospital11-20-2023 Miscellaneous Notes* Telephone Encounter - Jade [...] Rogers RN - 09/01/2023 11:06 AM EST [place] [facility] called. Asking if they could replace the Monistat cream to Miconazole 200 mg suppository to meet the needs of the patient. It comes as a 3 day pack. Edilia Rogers RN * Telephone Encounter - Joselyn Haji RN - 09/01/2023 10:53 AM EST protective services case worker notified of information below. Joselyn Haji RN * Telephone Encounter - Alma Ac APRN.CNP - 09/01/2023 10:27 AM EST There is an interaction with the Diflucan and another medication she is on, that's why I didn't order it. Alma Ac APRN.CNP * Telephone Encounter - Joselyn Haji RN - 09/01/2023 9:28 AM EST Patients post graduate intern called and notified of results and instructions. Leola states the half-way where Brenda lives is not licensed to administer the medication and areonly able to give verbal prompts. Because patient is very cognitively limited is she able to get oral Diflucan instead of vaginal cream? Will need to call [facility] patients post graduate intern back. Joselyn Haji RN * Telephone Encounter [...] in. Alma Ac APRN.CNP documented in this encounterHolzer Hospital11-17-2023 History of Present illness Narrative* Alma [...] external genitalia normal, normal Bartholin's glands, urethra, Buckeye's glands, no vulvar lesions, no cervical lesions, [...] 1 %-0.05 % TOPICAL CREAM Alma Ac APRN.PRINTING MECHANIST Nursery School Teacher offered: Patient declines. Medical Decision Making: Problems: Low: Acute, uncomplicated illness or injury Data: Unique test(s) ordered: 2 Risk: Low: Low risk from testing/treatment Moderate: Drug management Medical Decision Making Level: 3 - Low documented in this encounterHolzer Hospital11-16-2023 Miscellaneous Notes* Telephone Encounter - Alma Smart RN - 08/28/2023 8:35 AM EST Patient has been identified by name and date of : Yes, Provider [place] Date 08-28-23 Time 8:36 am Pharmacy phones [...] you. Alma Smart RN. documented in this encounterHolzer Hospital11-09-2023 Miscellaneous Notes* Telephone Encounter - Alma [...] option? If so, please send rx to [place]. Thank you, Shanell Estes LPN * Telephone [...] LPN - 08/20/2023 10:50 AM EST Curtis selvin Pollard called and he is requesting for [...] option. Brandy Mark LPN documented in this encounterHolzer Hospital11-07-2023 Miscellaneous Notes* Telephone Encounter - Cristal White, JAH - 08/19/2023 5:55 PM EST Fransisca Pandya Resident Staff at the [facility] called and is notified of providers results and instructions. She voices understanding. Cristal White, RN * Telephone Encounter - Alma Nuno [...] Staff at the [facility] [...] Please call and advise. documented in this encounterHolzer Hospital11-04-2023 Discharge summary Author Hesham Noguera [facility] August 16, 2023 10:28am Note Date/Time August 16, 2023 1 0:14am [facility] Medical Records Department [address] [place] [address] Discharge Summary 08/16/23 1011 MR#: [id number] Acct: [id number] Name: BRENDA LE Rep #:[id number] : 1965 57 From: Hesham Noguera MD PCP: Dr. Aleksandar Jones MD Status:ADM I N Location: [facility] [id number] Providers Date of Admission: 08/14/23 Date [...] Std Deviation 46.0 H, RDW Coeff of Ytesha 13.5, Plt Count 220, MPV11.2, Immature Gran % (Auto) 0.700, Neut % (Auto) 81.8 H, Lymph % (Auto) 12.7 L,[place] % (Auto) 4.6, Eos % (Auto) 0.0, [...] Self Care Charges/Coding Visit Charges Inpatient E&M: 74745 Disch Hosp >30min 08/16/23 1028 <Electronically signed by Hesham Noguera MD> Cosigner Signature (if applicable): CC: Dr. Hesham Noguera MD; Dr. Aleksandar Jones MD~ Signed [facility] Work Phone: 1(238) 134-168811-04-2023 Progress note Author Hesham [facility] August 16, 2023 10:11am Note Date/Time August 16, 2023 7 :08am [facility] Medical Records Department [address] [place] [address] Progress Note - Hospitalist 08/16/23707 MR#: [id number] Acct: [id number] Name: BRENDA LE Rep #:[id number] : 1965 57 From: Hesham Noguera MD PCP: Dr. Aleksandar Jones MD Status:ADM I N Location: [place] [address] Reason for Visit Reason for Visit: Diagnoses [...] (Auto) 86.8 H, Lymph % (Auto) 11.1 L,[place] % (Auto) 1.6, Eos % (Auto) 0.0, [...] documentation, 40minutes Charges/Coding Visit Charges Inpatient E&M: 51860 Subs Hosp L2 08/16/23 1011 <Electronically signed by Hesham Noguera MD> Cosigner Signature (if applicable): CC: ~ Signed [facility] Work Phone: 1(189) 872-325811-03-2023 Progress note Author Hesham Noguera [facility] August 15, 2023 9:29am Note Date/Time August 15, 2023 7 :27am [facility] Medical Records Department [address] [place] [address] Progress Note - Hospitalist 08/15/23 0727 MR#: [id number] Acct: [id number] Name: BRENDA LE Rep #:[id number] : 1965 57 From: Hesham Noguera MD PCP: Dr. Aleksandar Jones MD Status:ADM I N Location: [place] [address] Reason for Visit Reason for Visit: Diagnoses [...] (Auto) 79.4 H, Lymph % (Auto) 12.3 L,[place] % (Auto) 7.5, Eos % (Auto) 0.0, [...] documentation, 40minutes Charges/Coding Visit Charges Inpatient E&M: 05698 Subs Hosp L2 08/15/23928 <Electronically signed by Hesham Noguera MD> Cosigner Signature (if applicable): CC: ~ Signed [facility] Work Phone: 1(560) 128-705011-03-2023 Progress note Author [facility] August 15, 2023 6:28am Note Date/Time August 15, 2023 6 :28am [facility] Medical Records Department [address] [place] [address] Progress Note - Hospitalist 08/15/23627 MR#: [id number] Acct: [id number] Name: BRENDA LE Rep #:[id number] : 1965 57 From: Amy Moreno MD PCP: Dr. Aleksandar Jones MD Status:ADM I N Location: [place] [address] Hospitalist Note Resp panel with + rhino. 08/15/23627 <Electronically signed by Aym Moreno MD> Cosigner Signature (if applicable): CC: ~ Signed [facility] Work Phone: 1(764) 185-215111-03-2023 Discharge summary Author Jey [facility] August 14, 2023 10:27pm Note Date/Time August 14, 2023 6 :16pm [facility] Medical Records Department [address] [place] [address] Emergency Department Summary 08/14/23 MR#: [id number] Acct: [id number] Name: BRENDA LE Rep #:[id number] : 1965 57 From: Jey Quesada DO PCP: Dr. Aleksandar Jones MD Status:ADM I N Location: [address] History of Present Illness Chief Complaint: Shortness of Breath Narrative Narrative: 57-year-old female presenting with shortness of breath. She states has been having fever, chills, body aches, nasal congestion for a couple of days. She states she lives at the half-way. She is been given ibuprofen. She requestedFlonase but was not given this. Patient states her Tmax was 102. She denies chest pain but is having shortness of breath. Has a history of COPD. [facility] Medical History (Updated 08/14/23 @ 22:16 [...] Dr. Amy Moreno MD) housing: other details: senior living. Smoking Status: Former smoker how long ago [...] he was tested for COVID at her half-way and was negative. Differential includes COVID-19, influenza, [...] 79.4 H Lymph % (Auto) 12.3 L [place] % (Auto) 7.5 Eos % (Auto) 0.0 [...] your Primary Care Provider. Call [facility] ([phone]) or report to the closest Emergency Room. Call 911 if necessary. 08/14/232226 <Electronically signed by Jey Quesada DO> Cosigner Signature (if applicable): CC: Dr. Aleksandar Jones MD ~ Signed [facility] Work Phone: 1(669) 730-124811-03-2023 History and physical note Author Amy Moreno [facility] August 14, 2023 10:20pm Note Date/Time August 14, 2023 1 0:20pm [facility] Medical Records Department [address] [place] [address] H&P Exam - Hospitalist 08/14/232207 MR#: [id number] Acct: [id number] Name: BRENDA LE Rep #:[id number] : 1965 57 From: Amy Moreno MD [...] Tobacco use, Obesity who presents to the [facility] ED on 08/14/23with history of 3 to 4 days of upper respiratory type symptoms including nasal congestion, rhinorrhea in addition to fever, chills, body aches as well as not markedly productive cough with wheezing not improving with worsening dyspnea sensation prompting eventual half-way transition to the ED for evaluation. Patient notes Tmax at her half-way 102. She is unsure if there have been other sick contacts at the half-way. Work-up in the ED included 97.4, heart [...] as patient complaining of significant nasal congestion. [facility] Medical History (Updated 08/14/23 @ [...] Dr. Amy Moreno MD) housing: other details: senior living. Smoking Status: Former smoker how long ago [...] (Auto) 79.4 H, Lymph % (Auto) 12.3 L,[place] % (Auto) 7.5, Eos % (Auto) 0.0, [...] Tobacco use, Obesity who presents to the [facility] ED on 08/14/23with history of 3 to 4 days of upper respiratory type symptoms including nasal congestion, rhinorrhea in addition to fever, chills, body aches as well as not markedly productive cough with wheezing not improving with worsening dyspnea sensation prompting eventual half-way transition to the ED for evaluation. #1. [...] Full code. Charges/Coding Visit Charges Inpatient E&M: 49866 Init Hosp L3 08/14/232219 <Electronically signed by Amy Moreno MD> Cosigner Signature (if applicable): CC: Dr. Amy Moreno MD; Dr. Aleksandar Jones MD~ Signed [facility] Work Phone: 1(305) 344-179611-02-2023 Discharge summary Author Jey Quesada [facility] August 14, 2023 10:27pm Note Date/Time August 14, 2023 6 :16pm [facility] Medical Records Department [address] [place] [address] Emergency Department Summary 08/14/23 MR#: [id number] Acct: [id number] Name: BRENDA LE Rep #:[id number] : 1965 57 From: Jey Quesada DO PCP: Dr. Aleksandar Jones MD Status:ADM I N Location: [place] [address] HPI History of Present Illness Chief Complaint: Shortness of Breath Narrative Narrative: 57-year-old female presenting with shortness of breath. She states has been having fever, chills, body aches, nasal congestion for a couple of days. She states she lives at the half-way. She is been given ibuprofen. She requestedFlonase but was not given this. Patient states her Tmax was 102. She denies chest pain but is having shortness of breath. Has a history of COPD. [facility] Medical History (Updated 08/14/23 @ 22:16 [...] Dr. Amy Moreno MD) housing: other details: senior living. Smoking Status: Former smoker how long ago [...] he was tested for COVID at her half-way and was negative. Differential includes COVID-19, influenza, [...] 79.4 H Lymph % (Auto) 12.3 L [place] % (Auto) 7.5 Eos % (Auto) 0.0 [...] 19:05 EDT Reading Location ID and State: [address] [place] [address] , Service support , Discharge Plan Triage Chief Complaint: Shortness of Breath ED Provider: Jey Quesada Dx/Rx/DC Orders Primary Care Provider: Aleksandar Jones What to do if you have Problems For any increased pain, shortness of breath, bleeding, nausea or vomiting, chestpain, or any unexpected problems, contact your Primary Care Provider. Call [facility] ([phone]) or report to the closest Emergency Room. Call 911 if necessary. 08/14/232226 <Electronically signed by Jey Quesada DO> Cosigner Signature (if applicable): CC: Dr. Aleksandar Jones MD ~ Signed [facility] Work Phone: 1(443) 277-870610-31-2023 Miscellaneous Notes* Telephone Encounter - Anusha Hansen [...] you. Anusha Hansen RN.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 (statuses as of 08/12/2022) [facility] of Past illness Narrative* Problem [...] check Routine gynecological examination 08/29/2009 11/26/2011 Overview: [facility], [facility] [place] DM w/o Complication Type II 11/08/200802/10 Other abnormal glucose 8 Overview: found at [facility], pt was on metformin for a while but taken off - pt never told if she had DM or not A1c 6.5% as of documented as of this encounter (statuses as of 08/15/2022) [facility] of Past illness Narrative* Problem [...] check Routine gynecological examination 08/29/2009 11/26/2011 Overview: [facility], [facility] [place] DM w/o Complication Type II 11/08/200802/10 Other abnormal glucose 8 Overview: found at [facility], pt was on metformin for a while but taken off - pt never told if she had DM or not A1c 6.5% as of documented as of this encounter (statuses as of 08/15/2022) [facility] of Past illness Narrative* Problem [...] Routine gynecological examination 08/29/2009 11/26/2011 Overview: [facility], [facility] [place] DM w/o Complication Type II 11/08/200802/10 Other abnormal glucose 8 Overview: found at [facility], pt was on metformin for a while but taken off - pt never told if she had DM or not A1c 6.5% as of documented as of this encounter (statuses as of 08/19/2022) [facility] of Past illness Narrative* Problem [...] check Routine gynecological examination 08/29/2009 11/26/2011 Overview: [facility], [facility] [place] DM w/o Complication Type II 11/08/200802/10 Other abnormal glucose 8 Overview: found at [facility], pt was on metformin for a while but taken off - pt never told if she had DM or not A1c 6.5% as of documented as of this encounter (statuses as of 08/29/2022) [facility] History of Past illness Narrative* Problem [...] check Routine gynecological examination 08/29/2009 11/26/2011 Overview: [facility], [facility] [place] w/o Complication Type II 11/08/200802/10 Other abnormal glucose 8 Overview: found at [facility], pt was on metformin for a while but taken off - pt never told if she had DM or not A1c 6.5% as of documented as of this encounter (statuses as of 08/30/2022) [facility] History of Past illness Narrative* Problem [...] Routine gynecological examination 08/29/2009 11/26/2011 Overview: [facility], [facility] [place] DM w/o Complication Type II 11/08/200802/10 Other abnormal glucose 8 Overview: found at [facility], pt was on metformin for a while but taken off - pt never told if she had DM or not A1c 6.5% as of documented as of this encounter (statuses as of 09/11/2022) [facility] History of Past illness Narrative* Problem [...] check Routine gynecological examination 08/29/2009 11/26/2011 Overview: [facility], [facility] [place] DM w/o Complication Type II 11/08/200802/10 Other abnormal glucose 8 Overview: found at [facility], pt was on metformin for a while but taken off - pt never told if she had DM or not A1c 6.5% as of documented as of this encounter (statuses as of 10/06/2022) [facility] History of Past illness Narrative* Problem [...] check Routine gynecological examination 08/29/2009 11/26/2011 Overview: [facility], [facility] [place] w/o Complication Type II 11/08/200802/10 Other abnormal glucose 8 Overview: found at [facility], pt was on metformin for a while but taken off - pt never told if she had DM or not A1c 6.5% as of documented as of this encounter (statuses as of 10/13/2022) [facility] History of Past illness Narrative* Problem [...] Routine gynecological examination 08/29/2009 11/26/2011 Overview: [facility], [facility] [place] w/o Complication Type II 11/08/200802/10 Other abnormal glucose 8 Overview: found at [facility], pt was on metformin for a while but taken off - pt never told if she had DM or not A1c 6.5% as of documented as of this encounter (statuses as of 12/09/2022) [facility] History of Past illness Narrative* Problem [...] check Routine gynecological examination 08/29/2009 11/26/2011 Overview: [facility], [facility] [place] w/o Complication Type II 11/08/200802/10 Other abnormal glucose 8 Overview: found at [facility], pt was on metformin for a while but taken off - pt never told if she had DM or not A1c 6.5% as of documented as of this encounter (statuses as of 01/30/2023) [facility] History of Past illness Narrative* Problem [...] check Routine gynecological examination 08/29/2009 11/26/2011 Overview: [facility], [facility] [place] w/o Complication Type II 11/08/200802/10 Other abnormal glucose 8 Overview: found at [facility], pt was on metformin for a while but taken off - pt never told if she had DM or not A1c 6.5% as of documented as of this encounter (statuses as of 02/14/2023) [facility] History of Past illness Narrative* Problem [...] Routine gynecological examination 08/29/2009 11/26/2011 Overview: [facility], [facility] [place] DM w/o Complication Type II 11/08/200802/10 Other abnormal glucose 8 Overview: found at [facility], pt was on metformin for a while but taken off - pt never told if she had DM or not A1c 6.5% as of documented as of this encounter (statuses as of 02/26/2023) [facility] History of Past illness Narrative* Problem [...] check Routine gynecological examination 08/29/2009 11/26/2011 Overview: [facility], [facility] [place] w/o Complication Type II 11/08/2008 02/22/2014 Other abnormal glucose 04/29 [facility] pt was on metformin for a while but taken off - pt never told if she had DM or not A1c 6.5% as of documented as of this encounter (statuses as of 04/30/2023) [facility] History of Past illness Narrative* Problem [...] check Routine gynecological examination 08/29/2009 11/26/2011 Overview: [facility], [facility] [place] w/o Complication Type II 11/08/2008 02/22/2014 Other abnormal glucose 04/29 Overview: found at [facility], pt was on metformin for a while but taken off - pt never told if she had DM or not A1c 6.5% as of documented as of this encounter (statuses as of 05/08/2023) [facility] History of Past illness Narrative* Problem [...] check Routine gynecological examination 08/29/2009 11/26/2011 Overview: [facility], [facility] [place] w/o Complication Type II 11/08/2008 02/22/2014 Other abnormal glucose 04/29 Overview: found at [facility], pt was on metformin for a while but taken off - pt never told if she had DM or not A1c 6.5% as of documented as of this encounter (statuses as of 05/24/2023) [facility] History of Past illness Narrative* Problem [...] check Routine gynecological examination 08/29/2009 11/26/2011 Overview: [facility], [facility] [place] w/o Complication Type II 11/08/2008 02/22/2014 Other abnormal glucose 04/29 Overview: [facility], pt was on metformin for a while but taken off - pt never told if she had DM or not A1c 6.5% as of documented as of this encounter (statuses as of 05/26/2023) [facility] History of Past illness Narrative* Problem [...] gynecological examination 08/29/2009 11/26/2011 Overview: [facility], [facility] [place] DM w/o Complication Type II 11/08/2008 02/22/2014 Other abnormal glucose 04/29 Overview: [facility], pt was on metformin for a while but taken off - pt never told if she had DM or not A1c 6.5% as of documented as of this encounter (statuses as of 05/27/2023) [facility] History of Past illness Narrative* Problem [...] check Routine gynecological examination 08/29/2009 11/26/2011 Overview: [facility], [facility] [place] w/o Complication Type II 11/08/2008 02/22/2014 Other abnormal glucose 04/29 Overview: found at [facility], pt was on metformin for a while but taken off - pt never told if she had DM or not A1c 6.5% as of documented as of this encounter (statuses as of 05/28/2023) [facility] History of Past illness Narrative* Problem [...] check Routine gynecological examination 08/29/2009 11/26/2011 Overview: [facility], [facility] [place] w/o Complication Type II 11/08/2008 02/22/2014 Other abnormal glucose 04/29 Overview: [facility], pt was on metformin for a while but taken off - pt never told if she had DM or not A1c 6.5% as of documented as of this encounter (statuses as of 06/18/2023) [facility] History of Past illness Narrative* Problem [...] Routine gynecological examination 08/29/2009 11/26/2011 Overview: [facility], [facility] [place] DM w/o Complication Type II 11/08/2008 02/22/2014 Other abnormal glucose 04/29 Overview: found at [facility], pt was on metformin for a while but taken off - pt never told if she had DM or not A1c 6.5% as of documented as of this encounter (statuses as of 07/17/2023) [facility] History of Past illness Narrative* Problem [...] check Routine gynecological examination 08/29/2009 11/26/2011 Overview: [facility], [facility] [place] w/o Complication Type II 11/08/2008 02/22/2014 Other abnormal glucose 04/29 Overview: found at [facility], pt was on metformin for a while but taken off - pt never told if she had DM or not A1c 6.5% as of documented as of this encounter (statuses as of 07/21/2023) [facility] History of Past illness Narrative* Problem [...] check Routine gynecological examination 08/29/2009 11/26/2011 Overview: [facility], [facility] [place] w/o Complication Type II 11/08/2008 02/22/2014 Other abnormal glucose 04/29 Overview: found at [facility], pt was on metformin for a while but taken off - pt never told if she had DM or not A1c 6.5% as of documented as of this encounter (statuses as of 08/12/2023) [facility] History of Past illness Narrative* Problem [...] Routine gynecological examination 08/29/2009 11/26/2011 Overview: [facility], [facility] [place] w/o Complication Type II 11/08/2008 02/22/2014 Other abnormal glucose 04/29 Overview: found at [facility], pt was on metformin for a while but taken off - pt never told if she had DM or not A1c 6.5% as of documented as of this encounter (statuses as of 08/16/2023) [facility] History of Past illness Narrative* Problem [...] check Routine gynecological examination 08/29/2009 11/26/2011 Overview: [facility], [facility] [place] DM w/o Complication Type II 11/08/2008 02/22/2014 Other abnormal glucose 04/29 Overview: found at [facility], pt was on metformin for a while but taken off - pt never told if she had DM or not A1c 6.5% as of documented as of this encounter (statuses as of 08/20/2023) [facility] History of Past illness Narrative* Problem [...] check Routine gynecological examination 08/29/2009 11/26/2011 Overview: [facility], [facility] [place] w/o Complication Type II 11/08/2008 02/22/2014 Other abnormal glucose 04/29 Overview: found at [facility], pt was on metformin for a while but taken off - pt never told if she had DM or not A1c 6.5% as of documented as of this encounter (statuses as of 08/21/2023) [facility] History of Past illness Narrative* Problem [...] Routine gynecological examination 08/29/2009 11/26/2011 Overview: [facility], [facility] [place] DM w/o Complication Type II 11/08/2008 02/22/2014 Other abnormal glucose 04/29 Overview: found at [facility], pt was on metformin for a while but taken off - pt never told if she had DM or not A1c 6.5% as of documented as of this encounter (statuses as of 08/28/2023) [facility] History of Past illness Narrative* Problem [...] check Routine gynecological examination 08/29/2009 11/26/2011 Overview: [facility], [facility] [place] w/o Complication Type II 11/08/2008 02/22/2014 Other abnormal glucose 04/29 Overview: found at [facility], pt was on metformin for a while but taken off - pt never told if she had DM or not A1c 6.5% as of documented as of this encounter (statuses as of 08/29/2023) [facility] History of Past illness Narrative* Problem [...] check Routine gynecological examination 08/29/2009 11/26/2011 Overview: [facility], [facility] [place] w/o Complication Type II 11/08/2008 02/22/2014 Other abnormal glucose 04/29 Overview: found at [facility], pt was on metformin for a while but taken off - pt never told if she had DM or not A1c 6.5% as of documented as of this encounter (statuses as of 09/01/2023) [facility] History of Past illness Narrative* Problem [...] check Routine gynecological examination 08/29/2009 11/26/2011 Overview: [facility] [place] w/o Complication Type II 11/08/2008 02/22/2014 Other abnormal glucose 04/29 Overview: found at [facility], pt was on metformin for a while but taken off - pt never told if she had DM or not A1c 6.5% as of documented as of this encounter (statuses as of 09/10/2023) [facility] History of Past illness Narrative* Problem [...] check Routine gynecological examination 08/29/2009 11/26/2011 Overview: [facility], [facility] [place] w/o Complication Type II 11/08/2008 02/22/2014 Other abnormal glucose 04/29 Overview: found at [facility], pt was on metformin for a while but taken off - pt never told if she had DM or not A1c 6.5% as of documented as of this encounter (statuses as of 09/10/2023) [facility] History of Past illness Narrative* Problem [...] check Routine gynecological examination 08/29/2009 11/26/2011 Overview: [facility], [facility] [place] DM w/o Complication Type II 11/08/2008 02/22/2014 Other abnormal glucose 04/29 Overview: found at [facility], pt was on metformin for a while but taken off - pt never told if she had DM or not A1c 6.5% as of documented as of this encounter (statuses as of 09/23/2023) [facility] History of Past illness Narrative* Problem [...] check Routine gynecological examination 08/29/2009 11/26/2011 Overview: [facility], [facility] [place] DM w/o Complication Type II 11/08/2008 02/22/2014 Other abnormal glucose 04/29 Overview: found at [facility], pt was on metformin for a while but taken off - pt never told if she had DM or not A1c 6.5% as of documented as of this encounter (statuses as of 11/20/2023) [facility] History of Past illness Narrative* Problem [...] check Routine gynecological examination 08/29/2009 11/26/2011 Overview: [facility], [facility] [place] DM w/o Complication Type II 11/08/2008 02/22/2014 Other abnormal glucose 04/29 Overview: found at [facility], pt was on metformin for a while but taken off - pt never told if she had DM or not A1c 6.5% as of documented as of this encounter (statuses as of 12/02/2023) [facility] History of Past illness Narrative* Problem [...] gynecological examination 08/29/2009 11/26/2011 Overview: [facility] [place], [facility] [place] w/o Complication Type II 11/08/2008 02/22/2014 Other abnormal glucose 04/29 Overview: found at [facility], pt was on metformin for a while but taken off - pt never told if she had DM or not A1c 6.5% as of documented as of this encounter (statuses as of 01/14/2024) [facility] History of Past illness Narrative* Problem [...] check Routine gynecological examination 08/29/2009 11/26/2011 Overview: [facility], [facility] [place] DM w/o Complication Type II 11/08/2008 02/22/2014 Other abnormal glucose 04/29 Overview: found at [facility], pt was on metformin for a while but taken off - pt never told if she had DM or not A1c 6.5% as of documented as of this encounter (statuses as of 01/22/2024) [facility] History of Past illness Narrative* Problem [...] check Routine gynecological examination 08/29/2009 11/26/2011 Overview: [facility], [facility] [place] w/o Complication Type II 11/08/2008 02/22/2014 Other abnormal glucose 04/29 Overview: [facility], pt was on metformin for a while but taken off - pt never told if she had DM or not A1c 6.5% as of documented as of this encounter (statuses as of 01/30/2024) [facility] History of Present illness Narrative* Neelima [...] 18, 2020 9:54 AM [facility] of Past illness Narrative* Problem [...] examination 08/29/2009 11/26/2011 Overview: [facility], [facility] [place] w/o Complication Type II 11/08/200802/10 Other abnormal glucose 8 Overview: [facility], pt was on metformin for a while but taken off - pt never told if she had DM or not A1c 6.5% as of documented as of this encounter (statuses as of 01/11/2022) [facility] History of Past illness Narrative* Problem Noted Date Resolved Date Pneumonia of both upper lobes due to infectious organism 08/06/2018 08/06/2018 Type 2 diabetes mellitus with renal manifestatio ns 10/29/2013 11/07/2017 Tobacco abuse 09/07/2012 11/07/2016 Routine general medical exam ination at a health care facility 08/29/2009 11/26/2011 Overview: 08/29/2009, from Wojcie[facility] Quintanilla 05/03/2011, yearly check Routine gynecological examination 08/29/2009 11/26/2011 Overview: [facility], [facility] DM w/o Complication Type II 11/08/200802/10 Other abnormal glucose 8 Overview: found at [facility], pt was on metformin for a while but taken off - pt never told if she had DM or not A1c 6.5% as of documented as of this encounter (statuses as of 01/14/2022) [facility] Rolf Agudelo [facility] Note Date/Time June 23, 2025 12:36pm [facility] Medical Records Department [address] [place] [address] Anesthesia Postop Eval I 06/23/25 1235 MR#: [id number] Acct: [id number] Name: BRENDA LE Rep #:[id number] : 1965 59 From: Rolf Agudelo CRNA PCP: Dr. Aleksandar Jones MD Status:REG S DC Y Race: C Location: [place] [address] Anesthesia: Postop Eval I Current Vital Signs [...] CRNA Cosigner Signature: Date CC: ~ Signed [facility] Work Phone: Discharge summary Author Babak Garcia [facility] Note Date/Time December 21, 2024 12: 14pm [facility] Medical Records Department [address] [place] [address] Emergency Department Summary 12/21/24 MR#: [id number] Acct: [id number] Name: BRENDA LE Rep #:[id number] : 1965 59 From: Babak Garcia DO PCP: Shelia Salmon, MACHINE TOOL DESIGNER Status:REG ER Location: ED HPI History of [...] 2 ill individuals right now in her half-way. Patient states that she has been wheezing a lot lately. Per EMS they did not give any breathing treatments as her lungs were clear for them. [facility] Medical History Obesity (BMI 30-39.9) Hyponatremia [...] of cholecystectomy Social History housing: other details: senior living. Smoking Status: Former smoker how long ago [...] H Lymph % (Auto) Cancelled 8.6 L [place] % (Auto) Cancelled 4.7 Eos % (Auto) [...] Drop Cells Cancelled Ovalocytes Cancelled Stomatocytes Cancelled [employer] Bodies Cancelled Sara Cells Cancelled Bite Cells [...] Clarity Clear Urine pH 6.5 Ur Specific [place]ke 1.010 Urine Protein 15 H Urine Glucose [...] (Auto) Neut % (Auto) Lymph % (Auto) [place] % (Auto) Eos % (Auto) Baso % [...] Target Cells Tear Drop Cells Ovalocytes Stomatocytes [employer] Bodies Sara Cells Bite Cells Crenated Cell [...] Color Urine Clarity Urine pH Ur Specific [place] Urine Protein Urine Glucose (UA) Urine Ketones Urine Occult Blood Urine Nitrite Urine Bilirubin Urine Urobilinogen Ur Leukocyte Esterase Urine RBC Urine WBC Ur Squamous Epith Cells Urine Bacteria Urine Mucus Radiography Diagnostic Testing: Clinical Impression(s) from Imaging Studies Chest X-Ray 12/21/24 08:48 IMPRESSION: Pulmonary venous congestion. Reading Location: [facility] Discharge Plan Triage Chief Complaint: Shortness of [...] 12hr PO Patient Comments: [NO ORIGINAL SIG] Tanesha Ellipta 62.5 mcg/actuation blister with device INHALATION [...] Care Provider: Shelia Salmon Referrals: Shelia Salmon, ESEQUIEL [Primary Care Provider] - Activity Restrictions/Additional Instructions: You tested positive for COVID-19 here in the emergency department. Start the steroid that was sent to your pharmacy tomorrow as you were given a dose here today already. Use Zofran as needed for nausea. Ensure adequate hydration. Return with worsening symptoms or any concerns. Follow-up with your doctor in outpatient setting. Print Language: Citizen Of [place] Disposition Disposition: Home, Self Care What to do if you have Problems For any increased pain, shortness of breath, bleeding, nausea or vomiting, chestpain, or any unexpected problems, contact your Primary Care Provider. Call [facility] ([phone]) or report to the closest Emergency Room. Call 911 if necessary. 12/21/24 1214 <Electronically signed by Babak Garcia DO> Cosigner Signature (if applicable): CC: ESEQUIEL Salmon ~ Signed [facility] Work Phone: Evaluation noteNo assessment information available [facility] Work Phone: Evaluation note* Diagnosis Chronic constipation Unspecified constipation [facility] Diagnosis Chronic idiopathic constipation Unspecified constipation Iron deficiency anemia, unspecified iron deficiency anemia type [facility] Diagnosis Tachycardia- Primary Tachycardia, unspecified SVT [...] Other specified counseling [facility]* Diagnosis Right hip pain- Primary Pain in joint, pelvic region and thigh [facility] Diagnosis Skin irritation- Primary Unspecified disorder of skin and subcutaneous tissue Rosacea [facility] Diagnosis Chronic constipation Unspecified constipation [facility]* Diagnosis Restless leg syndrome Restless legs syndrome (RLS) [facility]* Diagnosis Injury of toenail of right foot, initial encounter- Primary [facility]* Diagnosis Conjunctivitis of left eye, unspecified conjunctivitis type- Primary Facial infection Other specified infectious and parasitic diseases [facility]* Diagnosis Encounter for screening mammogram for breast cancer [facility]* Diagnosis GERD without esophagitis Esophageal reflux Epigastric pain Abdominal pain, epigastric [facility]* Diagnosis Type 2 diabetes mellitus with diabetic nephropathy, with long-term current use of insulin ([facility])- Primary Schizophreniform disorder, chronic condition (HCC) Schizophreniform disorder, chronic condition Hyperlipidemia, unspecified hyperlipidemia type LIAD (obstructive sleep apnea) Obstructive sleep apnea (adult) (pediatric) Rosacea Upper back pain Gassiness Flatulence, eructation, and gas pain [facility]* Diagnosis Hyperlipidemia, unspecified hyperlipidemia type [facility]* Diagnosis Type 2 diabetes mellitus with diabetic nephropathy, with long-term current use of insulin ([facility]) [facility]* Diagnosis GERD without esophagitis Esophageal reflux Epigastric pain Abdominal pain, epigastric [facility] Diagnosis COVID-19 [facility] Diagnosis Chest pain, unspecified type- Primary Weight loss Loss of weight Type 2 diabetes mellitus with diabetic nephropathy, with long-term current use of insulin ([facility]) Hyperlipidemia, unspecified hyperlipidemia type GERD without esophagitis Esophageal reflux Acute diastolic CHF (congestive heart failure) (HCC) Acute diastolic heart failure Schizophreniform disorder, chronic condition (HCC) Schizophreniform disorder, chronic condition Fatigue, unspecified type documented in this encounter [facility] note* Diagnosis Tachycardia- Primary Tachycardia, unspecified documented in this encounter [facility] note* Diagnosis Restless leg syndrome Restless legs syndrome (RLS) documented in this encounter [facility] note* Diagnosis Encounter for screening mammogram for breast cancer documented in this encounter [facility] note* Diagnosis Hyperlipidemia, unspecified hyperlipidemia type documented in this encounter [facility] note* Diagnosis Onset Date Resolution Status COPD exacerbation chronic [facility] Work Phone: evaluation note* Diagnosis Type 2 diabetes mellitus with diabetic nephropathy, with long-term current use of insulin ([facility]) documented in this encounter [facility] note* Diagnosis Itching in the vaginal area- Primary Pruritus of genital organs documented in this encounter [facility] note* Diagnosis Type 2 diabetes mellitus with diabetic nephropathy, with long-term current use of insulin ([facility])- Primary documented in this encounter [facility] note* Diagnosis Onset Date Resolution Status COPD exacerbation resolved [facility] Work Phone: evaluation note* Diagnosis Primary hypertension- Primary Unspecified essential hypertension Pure hypercholesterolemia SVT (supraventricular tachycardia) Other specified cardiac dysrhythmias documented in this encounter [facility] note* Diagnosis Pain in both lower extremities GERD without esophagitis Esophageal reflux Epigastric pain Abdominal pain, epigastric documented in this encounter [facility] note* Diagnosis Acute constipation- Primary Unspecified constipation Nasal dryness Other diseases of nasal cavity and sinuses Pain in both lower extremities Leg weakness, bilateral Other musculoskeletal symptoms referable to limbs Sedative, hypnotic or anxiolytic dependence, uncomplicated (HCC) Acute respiratory failure with hypoxia (HCC) Acute respiratory failure Chronic obstructive pulmonary disease, unspecified COPD type (HCC) SVT (supraventricular tachycardia) ([facility]) Other specified cardiac dysrhythmias documented in this encounter [facility] note* Diagnosis Leg weakness, bilateral Other [...] lower extremities- Primary [facility] Diagnosis Uncontrolled type 2 diabetes mellitus with hyperglycemia (HCC)- Primary [facility] Diagnosis Weakness of both lower extremities- Primary [facility]* Diagnosis Folliculitis- Primary Other specified disease of hair and hair follicles Fatigue, unspecified type [facility]* Diagnosis Restless leg syndrome Restless legs syndrome (RLS) [facility]* Diagnosis GERD without esophagitis Esophageal reflux Epigastric pain Abdominal pain, epigastric [facility]* Diagnosis Uncontrolled type 2 diabetes mellitus with hyperglycemia (HCC) [facility] Diagnosis Acute constipation Unspecified constipation [facility] Diagnosis Encounter for screening mammogram for breast cancer [facility]* Diagnosis Uncontrolled type 2 diabetes mellitus with hyperglycemia (HCC)- Primary Encounter for immunization Need for other specified prophylactic vaccination against single bacterial disease Fatigue, unspecified type Type 2 diabetes mellitus with diabetic nephropathy, with long-term current use of insulin (HCC) Chronic obstructive pulmonary disease, unspecified COPD type ([facility]) Schizophreniform disorder, chronic condition ([facility]) Schizophreniform disorder, chronic condition Primary hypertension Unspecified essential hypertension Vitamin D deficiency Unspecified vitamin D deficiency Pure hypercholesterolemia [facility]* Diagnosis Hyperlipidemia, unspecified hyperlipidemia type [facility]* Diagnosis Behavioral change Unspecified disturbance of conduct Altered mental status, unspecified altered mental status type [facility]* Diagnosis SOB (shortness of breath) Shortness of breath Cough [facility]* Diagnosis Pain of right eye- Primary Pain in or around eye [facility]* Diagnosis Acute diastolic CHF (congestive heart failure) (HCC) Acute diastolic heart failure [facility]* Diagnosis LIDA (obstructive sleep apnea)- Primary Obstructive sleep apnea (adult) (pediatric) Acute exacerbation of chronic obstructive pulmonary disease (COPD) (HCC) Obstructive chronic bronchitis with exacerbation Tachycardia Tachycardia, unspecified Tinea cruris Dermatophytosis of groin and perianal area [facility]* Diagnosis Uncontrolled type 2 diabetes mellitus with hyperglycemia (HCC) [facility]* Diagnosis Chronic obstructive pulmonary disease, unspecified COPD type (HCC)- Primary Leg pain, bilateral Pain in limb Encounter for immunization Need for other specified prophylactic vaccination against single bacterial disease [facility]* Diagnosis Primary hypertension- Primary Unspecified essential hypertension Pure hypercholesterolemia SVT (supraventricular tachycardia) (HCC) Other specified cardiac dysrhythmias Tachycardia Tachycardia, unspecified documented in this encounter [facility] note* Diagnosis Nasal dryness Other diseases of nasal cavity and sinuses [facility]* Diagnosis Leg pain, bilateral- Primary Pain in limb [facility]* Diagnosis Leg pain, bilateral Pain in limb GERD without esophagitis Esophageal reflux Epigastric pain Abdominal pain, epigastric [facility]* Diagnosis Weakness of both lower extremities- Primary Uncontrolled type 2 diabetes mellitus with hyperglycemia (HCC) Hyperlipidemia, unspecified hyperlipidemia type Leg pain, bilateral Pain in limb Weakness of both lower extremities [facility]* Diagnosis Weakness of both lower extremities [facility]* Diagnosis Hyponatremia- Primary Hyposmolality and/or hyponatremia Leg pain, bilateral Pain in limb [facility]* Diagnosis Pneumonia of right lung due to infectious organism, unspecified part of lung- Primary Fever, unspecified fever cause Acute cough URI, acute Acute upper respiratory infections of unspecified site Acute cough [facility]* Diagnosis Acute cough [facility]* Diagnosis Acute constipation Unspecified constipation [facility]* Diagnosis Leg pain, bilateral- Primary Pain in limb Bacterial pneumonia Bacterial pneumonia, unspecified Bacterial pneumonia Bacterial pneumonia, unspecified [facility]* Diagnosis Bacterial pneumonia Bacterial pneumonia, unspecified [facility]* Diagnosis Leg pain, bilateral Pain in limb [facility]* Diagnosis COVID- Primary Acute diastolic CHF [...] disorder, chronic condition [facility] Leg pain, bilateral Pain in limb [facility] Diagnosis Exposure to hepatitis B- Primary Contact with or exposure to other viral diseases [facility]* Diagnosis Hyponatremia- Primary Hyposmolality and/or hyponatremia Leukocytosis, unspecified type [facility]* Diagnosis False-positive serological test result [R76.8]- Primary [facility]* Diagnosis Hyponatremia- Primary Hyposmolality and/or hyponatremia [facility]* Diagnosis Tobacco abuse Tobacco use disorder [facility] Diagnosis Hepatitis B core antibody positive- Primary Other and unspecified nonspecific immunological findings [facility] Diagnosis Water intoxication- Primary Other [...] of insulin (HCC) [facility] Diagnosis Liver function test abnormality- Primary Other abnormal blood chemistry Acute diastolic CHF (congestive heart failure) (HCC) Acute diastolic heart failure [facility] Diagnosis Elevated liver enzymes- Primary Other nonspecific abnormal serum enzyme levels Hepatitis B core antibody positive Other and unspecified nonspecific immunological findings [facility]* Diagnosis Liver function test abnormality- Primary Other abnormal blood chemistry Hyponatremia Hyposmolality and/or hyponatremia documented in this encounter [facility] note* Diagnosis Elevated liver enzymes Other nonspecific abnormal serum enzyme levels documented in this encounter [facility] note* Diagnosis Encounter for screening mammogram for breast cancer documented in this encounter [facility] note* Diagnosis Leg pain, bilateral Pain in limb documented in this encounter [facility] note* Diagnosis Leg pain, bilateral Pain in limb documented in this encounter [facility] note* Diagnosis Cough, unspecified type documented in this encounter [facility] note* Diagnosis Hyponatremia- Primary Hyposmolality and/or hyponatremia Water intoxication Other fluid overload Type 2 diabetes mellitus with diabetic nephropathy, with long-term current use of insulin ([facility]) Leukocytosis, unspecified type Pure hypercholesterolemia GERD without [...] Cough, unspecified type documented in this encounter [facility] note* Diagnosis Primary hypertension- Primary Unspecified essential hypertension SVT (supraventricular tachycardia) (HCC) Other specified cardiac dysrhythmias documented in this encounter [facility] note* Diagnosis Onset Date Resolution Status Admit Date Constipation noneactive May 10, 025 12:24pm [facility] Work Phone: Evaluation note* Diagnosis Nocturnal enuresis- Primary documented in this encounter [facility] note* Diagnosis GERD without esophagitis- Primary [...] therapeutic drug monitoring [facility] Amy Moreno [facility] August 14, 2023 10:20pm Note Date/Time August 14, 2023 1 0:20pm [facility] Medical Records Department [address] [place] [address] H&P Exam - Hospitalist 08/14/238 MR#: [id number] Acct: [id number] Name: BRENDA LE Rep #:[id number] : 1965 57 From: Amy Moreno MD [...] Tobacco use, Obesity who presents to the [facility] ED on 08/14/23with history of 3 to 4 days of upper respiratory type symptoms including nasal congestion, rhinorrhea in addition to fever, chills, body aches as well as not markedly productive cough with wheezing not improving with worsening dyspnea sensation prompting eventual half-way transition to the ED for evaluation. Patient notes Tmax at her half-way 102. She is unsure if there have been other sick contacts at the half-way. Work-up in the ED included 97.4, heart [...] as patient complaining of significant nasal congestion. [facility] Medical History (Updated 08/14/23 @ [...] Dr. Amy Moreno MD) housing: other details: senior living. Smoking Status: Former smoker how long ago [...] (Auto) 79.4 H, Lymph % (Auto) 12.3 L,[place] % (Auto) 7.5, Eos % (Auto) 0.0, [...] Tobacco use, Obesity who presents to the [facility] ED on 08/14/23with history of 3 to 4 days of upper respiratory type symptoms including nasal congestion, rhinorrhea in addition to fever, chills, body aches as well as not markedly productive cough with wheezing not improving with worsening dyspnea sensation prompting eventual half-way transition to the ED for evaluation. #1. [...] Full code. Charges/Coding Visit Charges Inpatient E&M: 52899 Init Hosp L3 08/14/232219 <Electronically signed by Amy Moreno MD> Cosigner Signature (if applicable): CC: Dr. Amy Moreno MD; Dr. Aleksandar Jones MD~ Signed [facility] Work Phone: Hospital Discharge instructions Additional Instructions You tested positive for COVID-19 here in the emergency department. Start the steroid that was sent to your pharmacy tomorrow as you were given a dose here today already. Use Zofran as needed for nausea. Ensure adequate hydration. Return with worsening symptoms or any concerns. Follow-up with your doctor in outpatient setting.[facility] Work Phone: Reason for referral (narrative)* Diagnostic Procedure Only (Routine) - Pending Review Specialty Diagnoses / Procedures Referred By Jenny cotter Referred To Contact [facility] Diagnoses Encounter for screening mammogram for breast cancer Procedures FRANNY SCREENING SCREENING MAMMOGRAPHY BI 2-VIEW BREAST INC CAD Aleksandar Jones MD [address] [place] [address] [facility] [address] [place] [address] Referral ID Status Reason Start Date Expiration Date Visits Requested Visits Authorized [id number] Pending Review Auto-Generat ed Referral 2 09/06/2023 1 1 [facility] for referral (narrative)* Diagnostic Procedure Only (Routine) - Pending Review Specialty Diagnoses / Procedures Referred By Jenny cotter Referred To Contact [facility] Diagnoses Chest pain, unspecified type Procedures NM CARDIAC PERF STRESS/PHARM MYOCARDIAL SPECT MULTIPLE STUDIES Radha Batista APRN.PRINTING MECHANIST [address] [place] [address] [facility] [address] [place] [address] Referral ID Status Reason Start Date Expiration Date Visits Requested Visits Authorized [id number] Pending Review Auto-Generat ed Referral 04/29/2023 05/28/2024 1 1 * Outpatient Procedure (Routine) - Closed Specialty Diagnoses / Procedures Referred By Jenny cotter Referred To [facility] Diagnoses Chest pain, unspecified type Procedures ECG COMPLETE ECG ROUTINE ECG W/LEAST 12 LDS W/I&R Radha Batista APRN.PRINTING MECHANIST [address] [place] [address] [facility] [place] [address] [place] [address] Referral ID Status Reason Start Date Expiration Date V isits Requested Visits Authorized [id number] Closed Auto-Generate d Referral 04/29/2023 04/28/2024 1 1 [facility] for referral (narrative)* Diagnostic Procedure Only (Routine) - Pending Review Specialty Diagnoses / Procedures Referred By Jenny cotter Referred To Contact [facility] Diagnoses Encounter for screening mammogram for breast cancer Procedures FRANNY SCREENING SCREENING MAMMOGRAPHY BI 2-VIEW BREAST INC CAD Aleksandar Jones MD [address] [place] [address] [facility] [address] [place] [address] Referral ID Status Reason Start Date Expiration Date Visits Requested Visits Authorized [id number] Pending Review Auto-Generat ed Referral 07/16/2023 08/14/2024 1 1 [facility] for referral (narrative)* Diagnostic Procedure Only (Routine) - New Request Specialty Diagnoses / Procedures Referred By Contac t Referred To Contact [facility] Diagnoses Encounter for screening mammogram for breast cancer Procedures FRANNY SCREENING W [place] SCREENING DIGITAL BREAST TOMOSYNTHESIS BI SCREENING MAMMOGRAPHY BI 2-VIEW BREAST INC CAD Robert, Aleksandar Jeffrey MD [address] [place] [address] [facility] [address] [place] [address] Referral ID Status Reason Start Date Expiration Date Visits Requested Visits Authorized [id number] New Request Auto-Generat ed Referral 06/23/2024 07/23/2025 1 1 [facility] for referral (narrative)* Outpatient Procedure (Routine) - New Request Specialty Diagnoses / Procedures Referred By Contac t Referred To Contact [facility] [place] Diagnoses Primary hypertension Pure hypercholesterolemia SVT (supraventricular tachycardia) (HCC) Tachycardia Procedures ECG COMPLETE ECG ROUTINE ECG W/LEAST 12 [facility] W/I&R Fuentes Renee MD [address] [facility] [facility], [address] [place] [address] [facility] [address] [address] Referral ID Status Reason Start Date Expiration Date Visits Requested Visits Authorized [id number] New Request Auto-Generat ed Referral 09/20/2024 09/20/2025 1 1 [facility] for referral (narrative)* Outpatient Procedure (Routine) - Authorized Specialty Diagnoses / Procedures Referred By Contac t Referred To Contact [facility] Diagnoses Weakness of both lower extremities Procedures PVR ANK PRESS ASHELY VAS LAB NON-INVAS PHYSIOLOGIC STD EXTREMITY ART 2 LEVEL Radha Batista, PLOW MECHANIC.PRINTING MECHANIST [address] [place] [address] [facility] [place] [address] [place] [address] Referral ID Status Reason Start Date Expiration Date Visits Requested Visits Authorized [id number] Authorized Auto-Generat ed Referral 11/02/2024 11/02/2025 1 1 * Diagnostic Procedure Only (Routine) - Closed Specialty Diagnoses / Procedures Referred By Contac t Referred To Contact [facility] Diagnoses Weakness of both lower extremities Procedures XR LUMBAR GENERAL 3V AP/LAT/L5-S1 RADEX SPINE LUMBOSACRAL 2/3 VIEWS Radha Batista APRN.PRINTING MECHANIST [address] [place] [address] [place] [address] Referral ID Status Reason Start Date Expiration Date V isits Requested Visits Authorized [id number] Closed Auto-Generate d Referral 11/02/2024 12/02/2025 1 1 [facility] for referral (narrative)* Diagnostic Procedure Only (Routine) - Closed Specialty Diagnoses / Procedures Referred By Contac t Referred To Contact [facility] Diagnoses Weakness of both lower extremities Procedures XR LUMBAR GENERAL 3V AP/LAT/L5-S1 RADEX SPINE LUMBOSACRAL 2/3 VIEWS Radha Batista APRN.PRINTING MECHANIST [address] [place] [address] [place] [address] Referral ID Status Reason Start Date Expiration Date V isits Requested Visits Authorized [id number] Closed Auto-Generate d Referral 11/02/2024 12/02/2025 1 1 [facility] for referral (narrative)No reason for referral information [facility] Work Phone: Reason for visit Narrative* Diagnostic Procedure Only (Routine) - Closed Specialty Diagnoses / Procedures Referred By Contac t Referred To Contact [facility] Diagnoses Chest pain, unspecified type Procedures NM CARDIAC PERF STRESS/PHARM MYOCARDIAL SPECT MULTIPLE STUDIES Radha Batista APRN.PRINTING MECHANIST [address] [place] [address] [facility] [address] [place] [address] Referral ID Status Reason Start Date Expiration Date V isits Requested Visits Authorized [id number] Closed Auto-Generate d Referral 05/15/2023 10/12/2023 3 1 [facility] for visit Narrative* Diagnostic Procedure Only (Routine) - Closed Specialty Diagnoses / Procedures Referred By Contac t Referred To Contact [facility] Diagnoses Weakness of both lower extremities Procedures XR LUMBAR GENERAL 3V AP/LAT/L5-S1 RADEX SPINE LUMBOSACRAL 2/3 VIEWS Radha Batista APRN.PAVITHRA [address] [place] [address] [place] [address] Referral ID Status Reason Start Date Expiration Date V isits Requested Visits Authorized [id number] Closed Auto-Generate d Referral 11/02/2024 12/02/2025 1 1 [facility] for visit Narrative* Diagnostic Procedure Only (Routine) - Closed Specialty Diagnoses / Procedures Referred By Contac t Referred To Contact [facility] Diagnoses Encounter for screening mammogram for breast cancer Procedures FRANNY SCREENING W [place] SCREENING DIGITAL BREAST TOMOSYNTHESIS BI SCREENING MAMMOGRAPHY BI 2-VIEW BREAST INC CAD Aleksandar Jones MD [address] [place] [address] Phone: tel: fax: [facility] [address] [place] [address] Referral ID Status Reason Start Date Expiration Date V isits Requested Visits Authorized [id number] Closed Auto-Generate d Referral 06/23/2024 07/23/2025 1 1 [facility] Summary Purpose Family History No Family [...] Will No July 30 4:52pm Power of Actionscript Developer No July 30, 2021 4:52pm Documents on File Type Date Recorded 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 Advance Directive(s) 12/04/2016 3:21 PM Advance Directive(s) 01/11/2009 10:19 PM Advance Directive(s) 12/06/2008 4:00 PM Advance Directive Response Recorded Date/ Time Advance Directives No July 26, 2015 12:08pm Living Will No April 09, 2022 3:50pm Power of Actionscript Developer No April 09 3:50pm Advance Directive Response Recorded Date/ Time Advance Directives No July 26, 2015 12:08pm Living Will No June 05 3:59pm Power of Actionscript Developer No June 05 022 3:59pm Documents on File Type Date Recorded 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 Advance Directive(s) 01/11/2009 10:19 PM Advance Directive(s) 12/06/2008 4:00 PM Documents on File Type Date Recorded 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 Advance Directive(s) 01/11/2009 10:19 PM Advance Directive(s) 12/06/2008 4:00 PM Advance Directive Response Recorded Date/ Time Advance Directives No July 26, 2015 11:08am Living Will No June 05 2:59pm Power of Actionscript Developer No June 05 022 2:59pm Advance Directive Response Recorded Date/ Time Advance Directives No July 26, 2015 12:08pm Living Will No August 14 5:05pm Power of Actionscript Developer No August 14, 2023 5:05pm Advance Directive Response Recorded Date/ Time Name of Medical Power of Actionscript Developer Melony Willard August 15, 2023 12:13am Advance Directives No July 26, 2015 12:08pm Living Will No August 15 12:13am Power of Actionscript Developer Yes August 15, 2023 12:13am Advance Directive Response Recorded Date/ Time Name of Medical Power of Actionscript Developer Melony Willard August 14, 2023 11:13pm Advance Directives No July 26, 2015 11:08am Living Will No August 14 11:13pm Power of Actionscript Developer Yes August 14, 2023 11:13pm Advance Directive Response Recorded Date/ Time Name of Medical Power of Actionscript Developer Melony Willard August 14, 2023 11:13pm Advance Directives No July 26, 2015 11:08am Living Will No December 13, 2023 6:19pm Power of Actionscript Developer No December 12 6:19pm Advance Directive Response Recorded Date/ Time Advance Directives No July 26, 2015 12:08pm Living Will No December 13, 2023 7:19pm Power of Actionscript Developer No December 12 7:19pm Advance Directive Response Recorded Date/ Time Living Will No September 12 12:34am Power of Actionscript Developer No September 12, 2024 12:34am Living Will No October 13 5:23am Power of Actionscript Developer No October 13 5:23am Living Will No October 14 4:06pm Power of Actionscript Developer No October 14 025 4:06pm Living Will No December 13, 2023 7:19pm Power of Actionscript Developer No December 12 7:19pm Living Will No November 10 1:40am Power of Actionscript Developer No November 10, 2024 1:40am Living Will No November 13 2:33am Power of Actionscript Developer No November 13, 2024 2:33am Living Will No December 21, 2024 8:47am Power of Actionscript Developer No December 21 8:47am Advance Directives No July 26, 2015 12:08pm Advance Directive Response Recorded Date/ Time Living Will No September 12 12:34am Do you have a Healthcare Power of Actionscript Developer? No September 12, 2024 12:34am Living Will No October 13 5:23am Do you have a Healthcare Power of Actionscript Developer? No October 13, 2024 5:23am Living Will No October 14 4:06pm Do you have a Healthcare Power of Actionscript Developer? No October 14, 2024 4:06pm Living Will No December 11, 2024 5:48am Do you have a Healthcare Power of Actionscript Developer? No December 11, 2024 5:48am Living Will No November 10 1:40am Do you have a Healthcare Power of Actionscript Developer? No November 10, 2024 1:40am Living Will No November 13 2:33am Do you have a Healthcare Power of Actionscript Developer? No November 13, 2024 2:33am Living Will No December 21, 2024 8:47am Do you have a Healthcare Power of Actionscript Developer? No December 21, 2024 8:47am Advance Directives No July 26, 2015 12:08pm Advance Directive Response Recorded Date/ Time Living Will No December 11, 2024 5:48am Do you have a Healthcare Power of Actionscript Developer? No December 11, 2024 5:48am Living Will No January 10, 2025 10:11pm Do you have a Healthcare Power of Actionscript Developer? No January 10, 2025 10:11pm Living Will No November 13 2:33am Do you have a Healthcare Power of Actionscript Developer? No November 13, 2024 2:33am Living Will No December 21, 2024 8:47am Do you have a Healthcare Power of Actionscript Developer? No December 21, 2024 8:47am Advance Directives No July 26, 2015 12:08pm Advance Directive Response Recorded Date/ Time Living Will No January 10, 2025 10:11pm Do you have a Healthcare Power of Actionscript Developer? No January 10, 2025 10:11pm Advance Directives [...] 6pm S/O February 02, 2025 2:1 7pm C[facility] WORK March 01, 2025 7:0 5am Chief Complaint Admit Date S/O February 02, 2025 2:1 7pm [facility] March 01, 2025 7:0 5am [facility] March 28, 2025 5: 00am [facility] April 11, 2025 10 :00am NICOTINE DEPENDENCE May 06, 2025 12:4 8pm Constipation May 10, 2025 12:2 4pm Reason for Visit Admit Date Constipation May 10, 2025 12:2 4pm Chief Complaint Admit Date S/O February 02, 2025 2:1 7pm [facility] March 01, 2025 7:0 5am [facility] March 28, 2025 5: 00am [facility] April 11, 2025 10 :00am [facility] April 26, 2025 7: 45am NICOTINE DEPENDENCE May 06, 2025 12:4 8pm Constipation May 10, 2025 12:2 4pm Reason for Visit Admit Date Abdominal pain May 10, 2025 12:2 4pm Nausea May 10, 2025 12:2 4pm Constipation May 10, 2025 12:2 4pm Chief Complaint Admit Date C[facility] WORK March 01, 2025 7:0 5am [facility] March 28, 2025 5: 00am [facility] WORK April 11, 2025 10 :00am [facility] WORK April 26, 2025 7: 45am NICOTINE DEPENDENCE May 06, 2025 12:4 8pm Constipation May 10, 2025 12:2 4pm [facility] WORK May 24, 2025 5:00am Reason for Visit Admit Date Abdominal pain May 10, 2025 12:2 4pm Nausea May 10, 2025 12:2 4pm Constipation May 10, 2025 12:2 4pm Abdominal pain June 23, 2025 7:58am Dysphagia June 23, 2025 7:58am Nausea June 23, 2025 7:58am Chief Complaint Admit Date C[facility] March 28, 2025 5: 00am [facility] April 11, 2025 10 :00am [facility] WORK April 26, 2025 7: 45am NICOTINE DEPENDENCE May 06, 2025 12:4 8pm Constipation May 10, 2025 12:2 4pm [facility] May 24, 2025 5:00am [facility] June 21 5:00am Procedure F/U-Abdominal [...] Referral Specialty Diagnoses / Procedures Referred By Contvirgil t Referred To Contact Podiatry Diagnoses Injury of toenail of right foot, initial encounter Procedures CONSULT TO PODIATRY OFFICE/OUTPATIENT [facility] 60-74 MINUTES Zaira Mancilla, PLOW MECHANIC.PRINTING MECHANIST [address] [place] [address] Referral ID Status Reason Start Date Expiration Date Visits Requested Visits Authorized [id number] Authorized PCP Requested Referral 07/05/2022 07/05/2023 1 1 Specialty Diagnoses / Procedures Referred By Contac t Referred To Contact [facility] Diagnoses Leg weakness, bilateral Procedures CONSULT TO PHYSICAL THERAPY PHYSICAL THERAPY EVALUATION HIGH COMPLEX 45 MINS Radha Batista, PLOW MECHANIC.PRINTING MECHANIST [address] [place] [address] [facility] [address] [place] [address] Referral ID Status Reason Start Date Expiration Date Visits Requested Visits Authorized [id number] Pending Review PCP Requested Referral Auto-Generate d Referral 01/13/2024 01/12/2025 99 99 Additional Source Comments INFORMATION SOURCE (unrecogn ized section and content) DATE CREATED AUTHOR 04/03/2018 [facility] DATE CREATED AUTHOR AUTHOR'S ORGANIZ ATION 07/21/2021 [facility] DATE CREATED AUTHOR AUTHOR'S ORGANIZ ATION 06/29/2025 [facility] DATE CREATED AUTHOR AUTHOR'S ORGANIZ ATION 08/21/2025 [facility] Goals (unrecognized section and content) Goals [...] or prosecute any alcohol or drug abuse patient.[facility] HospitalIn the event this information is protected by the Federal Confidentiality of Alcohol and Drug Abuse Patient Records regulations: The Federal rules restrict any use of the information to criminally investigate or prosecute any alcohol or drug abuse patient.[facility] HospitalIn the event this information is protected by the Federal Confidentiality of Alcohol and Drug Abuse Patient Records regulations: The Federal rules restrict any use of the information to criminally investigate or prosecute any alcohol or drug abuse patient.[facility] HospitalIn the event this information is protected by the Federal Confidentiality of Alcohol and Drug Abuse Patient Records regulations: The Federal rules restrict any use of the information to criminally investigate or prosecute any alcohol or drug abuse patient.[facility] HospitalIn the event this information is protected by the Federal Confidentiality of Alcohol and Drug Abuse Patient Records regulations: The Federal rules restrict any use of the information to criminally investigate or prosecute any alcohol or drug abuse patient.[facility] HospitalIn the event this information is protected by the Federal Confidentiality of Alcohol and Drug Abuse Patient Records regulations: The Federal rules restrict any use of the information to criminally investigate or prosecute any alcohol or drug abuse patient.[facility] HospitalIn the event this information is protected by the Federal Confidentiality of Alcohol and Drug Abuse Patient Records regulations: The Federal rules restrict any use of the information to criminally investigate or prosecute any alcohol or drug abuse patient.[facility] HospitalIn the event this information is protected by the Federal Confidentiality of Alcohol and Drug Abuse Patient Records regulations: The Federal rules restrict any use of the information to criminally investigate or prosecute any alcohol or drug abuse patient.[facility] HospitalIn the event this information is protected by the Federal Confidentiality of Alcohol and Drug Abuse Patient Records regulations: The Federal rules restrict any use of the information to criminally investigate or prosecute any alcohol or drug abuse patient.[facility] HospitalIn the event this information is protected by the Federal Confidentiality of Alcohol and Drug Abuse Patient Records regulations: The Federal rules restrict any use of the information to criminally investigate or prosecute any alcohol or drug abuse patient.[facility] HospitalIn the event this information is protected by the Federal Confidentiality of Alcohol and Drug Abuse Patient Records regulations: The Federal rules restrict any use of the information to criminally investigate or prosecute any alcohol or drug abuse patient.[facility] HospitalIn the event this information is protected by the Federal Confidentiality of Alcohol and Drug Abuse Patient Records regulations: The Federal rules restrict any use of the information to criminally investigate or prosecute any alcohol or drug abuse patient.[facility] HospitalIn the event this information is protected by the Federal Confidentiality of Alcohol and Drug Abuse Patient Records regulations: The Federal rules restrict any use of the information to criminally investigate or prosecute any alcohol or drug abuse patient.[facility] HospitalIn the event this information is protected by the Federal Confidentiality of Alcohol and Drug Abuse Patient Records regulations: The Federal rules restrict any use of the information to criminally investigate or prosecute any alcohol or drug abuse patient.[facility] HospitalIn the event this information is protected by the Federal Confidentiality of Alcohol and Drug Abuse Patient Records regulations: The Federal rules restrict any use of the information to criminally investigate or prosecute any alcohol or drug abuse patient.[facility] HospitalIn the event this information is protected by the Federal Confidentiality of Alcohol and Drug Abuse Patient Records regulations: The Federal rules restrict any use of the information to criminally investigate or prosecute any alcohol or drug abuse patient.[facility] HospitalIn the event this information is protected by the Federal Confidentiality of Alcohol and Drug Abuse Patient Records regulations: The Federal rules restrict any use of the information to criminally investigate or prosecute any alcohol or drug abuse patient.[facility] HospitalIn the event this information is protected by the Federal Confidentiality of Alcohol and Drug Abuse Patient Records regulations: The Federal rules restrict any use of the information to criminally investigate or prosecute any alcohol or drug abuse patient.[facility] HospitalIn the event this information is protected by the Federal Confidentiality of Alcohol and Drug Abuse Patient Records regulations: The Federal rules restrict any use of the information to criminally investigate or prosecute any alcohol or drug abuse patient.[facility] HospitalIn the event this information is protected by the Federal Confidentiality of Alcohol and Drug Abuse Patient Records regulations: The Federal rules restrict any use of the information to criminally investigate or prosecute any alcohol or drug abuse patient.[facility] HospitalIn the event this information is protected by the Federal Confidentiality of Alcohol and Drug Abuse Patient Records regulations: The Federal rules restrict any use of the information to criminally investigate or prosecute any alcohol or drug abuse patient.[facility] HospitalIn the event this information is protected by the Federal Confidentiality of Alcohol and Drug Abuse Patient Records regulations: The Federal rules restrict any use of the information to criminally investigate or prosecute any alcohol or drug abuse patient.[facility] HospitalIn the event this information is protected by the Federal Confidentiality of Alcohol and Drug Abuse Patient Records regulations: The Federal rules restrict any use of the information to criminally investigate or prosecute any alcohol or drug abuse patient.[facility] HospitalIn the event this information is protected by the Federal Confidentiality of Alcohol and Drug Abuse Patient Records regulations: The Federal rules restrict any use of the information to criminally investigate or prosecute any alcohol or drug abuse patient.[facility] HospitalIn the event this information is protected by the Federal Confidentiality of Alcohol and Drug Abuse Patient Records regulations: The Federal rules restrict any use of the information to criminally investigate or prosecute any alcohol or drug abuse patient.[facility] HospitalIn the event this information is protected by the Federal Confidentiality of Alcohol and Drug Abuse Patient Records regulations: The Federal rules restrict any use of the information to criminally investigate or prosecute any alcohol or drug abuse patient.[facility] HospitalIn the event this information is protected by the Federal Confidentiality of Alcohol and Drug Abuse Patient Records regulations: The Federal rules restrict any use of the information to criminally investigate or prosecute any alcohol or drug abuse patient.[facility] HospitalIn the event this information is protected by the Federal Confidentiality of Alcohol and Drug Abuse Patient Records regulations: The Federal rules restrict any use of the information to criminally investigate or prosecute any alcohol or drug abuse patient.[facility] HospitalIn the event this information is protected by the Federal Confidentiality of Alcohol and Drug Abuse Patient Records regulations: The Federal rules restrict any use of the information to criminally investigate or prosecute any alcohol or drug abuse patient.[facility] HospitalIn the event this information is protected by the Federal Confidentiality of Alcohol and Drug Abuse Patient Records regulations: The Federal rules restrict any use of the information to criminally investigate or prosecute any alcohol or drug abuse patient.[facility] HospitalIn the event this information is protected by the Federal Confidentiality of Alcohol and Drug Abuse Patient Records regulations: The Federal rules restrict any use of the information to criminally investigate or prosecute any alcohol or drug abuse patient.[facility] HospitalIn the event this information is protected by the Federal Confidentiality of Alcohol and Drug Abuse Patient Records regulations: The Federal rules restrict any use of the information to criminally investigate or prosecute any alcohol or drug abuse patient.[facility] HospitalIn the event this information is protected by the Federal Confidentiality of Alcohol and Drug Abuse Patient Records regulations: The Federal rules restrict any use of the information to criminally investigate or prosecute any alcohol or drug abuse patient.[facility] HospitalIn the event this information is protected by the Federal Confidentiality of Alcohol and Drug Abuse Patient Records regulations: The Federal rules restrict any use of the information to criminally investigate or prosecute any alcohol or drug abuse patient.[facility] HospitalIn the event this information is protected by the Federal Confidentiality of Alcohol and Drug Abuse Patient Records regulations: The Federal rules restrict any use of the information to criminally investigate or prosecute any alcohol or drug abuse patient.[facility] HospitalIn the event this information is protected by the Federal Confidentiality of Alcohol and Drug Abuse Patient Records regulations: The Federal rules restrict any use of the information to criminally investigate or prosecute any alcohol or drug abuse patient.[facility] HospitalIn the event this information is protected by the Federal Confidentiality of Alcohol and Drug Abuse Patient Records regulations: The Federal rules restrict any use of the information to criminally investigate or prosecute any alcohol or drug abuse patient.[facility] HospitalIn the event this information is protected by the Federal Confidentiality of Alcohol and Drug Abuse Patient Records regulations: The Federal rules restrict any use of the information to criminally investigate or prosecute any alcohol or drug abuse patient.[facility] HospitalIn the event this information is protected by the Federal Confidentiality of Alcohol and Drug Abuse Patient Records regulations: The Federal rules restrict any use of the information to criminally investigate or prosecute any alcohol or drug abuse patient.[facility] HospitalIn the event this information is protected by the Federal Confidentiality of Alcohol and Drug Abuse Patient Records regulations: The Federal rules restrict any use of the information to criminally investigate or prosecute any alcohol or drug abuse patient.[facility] HospitalIn the event this information is protected by the Federal Confidentiality of Alcohol and Drug Abuse Patient Records regulations: The Federal rules restrict any use of the information to criminally investigate or prosecute any alcohol or drug abuse patient.[facility] HospitalIn the event this information is protected by the Federal Confidentiality of Alcohol and Drug Abuse Patient Records regulations: The Federal rules restrict any use of the information to criminally investigate or prosecute any alcohol or drug abuse patient.[facility] HospitalIn the event this information is protected by the Federal Confidentiality of Alcohol and Drug Abuse Patient Records regulations: The Federal rules restrict any use of the information to criminally investigate or prosecute any alcohol or drug abuse patient.[facility] HospitalIn the event this information is protected by the Federal Confidentiality of Alcohol and Drug Abuse Patient Records regulations: The Federal rules restrict any use of the information to criminally investigate or prosecute any alcohol or drug abuse patient.[facility] HospitalIn the event this information is protected by the Federal Confidentiality of Alcohol and Drug Abuse Patient Records regulations: The Federal rules restrict any use of the information to criminally investigate or prosecute any alcohol or drug abuse patient.[facility] HospitalIn the event this information is protected by the Federal Confidentiality of Alcohol and Drug Abuse Patient Records regulations: The Federal rules restrict any use of the information to criminally investigate or prosecute any alcohol or drug abuse patient.[facility] HospitalIn the event this information is protected by the Federal Confidentiality of Alcohol and Drug Abuse Patient Records regulations: The Federal rules restrict any use of the information to criminally investigate or prosecute any alcohol or drug abuse patient.[facility] HospitalIn the event this information is protected by the Federal Confidentiality of Alcohol and Drug Abuse Patient Records regulations: The Federal rules restrict any use of the information to criminally investigate or prosecute any alcohol or drug abuse patient.[facility] HospitalIn the event this information is protected by the Federal Confidentiality of Alcohol and Drug Abuse Patient Records regulations: The Federal rules restrict any use of the information to criminally investigate or prosecute any alcohol or drug abuse patient.[facility] HospitalIn the event this information is protected by the Federal Confidentiality of Alcohol and Drug Abuse Patient Records regulations: The Federal rules restrict any use of the information to criminally investigate or prosecute any alcohol or drug abuse patient.[facility] HospitalIn the event this information is protected by the Federal Confidentiality of Alcohol and Drug Abuse Patient Records regulations: The Federal rules restrict any use of the information to criminally investigate or prosecute any alcohol or drug abuse patient.[facility] HospitalIn the event this information is protected by the Federal Confidentiality of Alcohol and Drug Abuse Patient Records regulations: The Federal rules restrict any use of the information to criminally investigate or prosecute any alcohol or drug abuse patient.[facility] HospitalIn the event this information is protected by the Federal Confidentiality of Alcohol and Drug Abuse Patient Records regulations: The Federal rules restrict any use of the information to criminally investigate or prosecute any alcohol or drug abuse patient.[facility] HospitalIn the event this information is protected by the Federal Confidentiality of Alcohol and Drug Abuse Patient Records regulations: The Federal rules restrict any use of the information to criminally investigate or prosecute any alcohol or drug abuse patient.[facility] HospitalIn the event this information is protected by the Federal Confidentiality of Alcohol and Drug Abuse Patient Records regulations: The Federal rules restrict any use of the information to criminally investigate or prosecute any alcohol or drug abuse patient.[facility] HospitalIn the event this information is protected by the Federal Confidentiality of Alcohol and Drug Abuse Patient Records regulations: The Federal rules restrict any use of the information to criminally investigate or prosecute any alcohol or drug abuse patient.[facility] HospitalIn the event this information is protected by the Federal Confidentiality of Alcohol and Drug Abuse Patient Records regulations: The Federal rules restrict any use of the information to criminally investigate or prosecute any alcohol or drug abuse patient.[facility] HospitalIn the event this information is protected by the Federal Confidentiality of Alcohol and Drug Abuse Patient Records regulations: The Federal rules restrict any use of the information to criminally investigate or prosecute any alcohol or drug abuse patient.[facility] HospitalIn the event this information is protected by the Federal Confidentiality of Alcohol and Drug Abuse Patient Records regulations: The Federal rules restrict any use of the information to criminally investigate or prosecute any alcohol or drug abuse patient.[facility] HospitalIn the event this information is protected by the Federal Confidentiality of Alcohol and Drug Abuse Patient Records regulations: The Federal rules restrict any use of the information to criminally investigate or prosecute any alcohol or drug abuse patient.[facility] HospitalIn the event this information is protected by the Federal Confidentiality of Alcohol and Drug Abuse Patient Records regulations: The Federal rules restrict any use of the information to criminally investigate or prosecute any alcohol or drug abuse patient.[facility] HospitalIn the event this information is protected by the Federal Confidentiality of Alcohol and Drug Abuse Patient Records regulations: The Federal rules restrict any use of the information to criminally investigate or prosecute any alcohol or drug abuse patient.[facility] HospitalIn the event this information is protected by the Federal Confidentiality of Alcohol and Drug Abuse Patient Records regulations: The Federal rules restrict any use of the information to criminally investigate or prosecute any alcohol or drug abuse patient.[facility] HospitalIn the event this information is protected by the Federal Confidentiality of Alcohol and Drug Abuse Patient Records regulations: The Federal rules restrict any use of the information to criminally investigate or prosecute any alcohol or drug abuse patient.[facility] HospitalIn the event this information is protected by the Federal Confidentiality of Alcohol and Drug Abuse Patient Records regulations: The Federal rules restrict any use of the information to criminally investigate or prosecute any alcohol or drug abuse patient.[facility] HospitalIn the event this information is protected by the Federal Confidentiality of Alcohol and Drug Abuse Patient Records regulations: The Federal rules restrict any use of the information to criminally investigate or prosecute any alcohol or drug abuse patient.[facility] HospitalIn the event this information is protected by the Federal Confidentiality of Alcohol and Drug Abuse Patient Records regulations: The Federal rules restrict any use of the information to criminally investigate or prosecute any alcohol or drug abuse patient.[facility] HospitalIn the event this information is protected by the Federal Confidentiality of Alcohol and Drug Abuse Patient Records regulations: The Federal rules restrict any use of the information to criminally investigate or prosecute any alcohol or drug abuse patient.[facility] HospitalIn the event this information is protected by the Federal Confidentiality of Alcohol and Drug Abuse Patient Records regulations: The Federal rules restrict any use of the information to criminally investigate or prosecute any alcohol or drug abuse patient.[facility] HospitalIn the event this information is protected by the Federal Confidentiality of Alcohol and Drug Abuse Patient Records regulations: The Federal rules restrict any use of the information to criminally investigate or prosecute any alcohol or drug abuse patient.[facility] HospitalIn the event this information is protected by the Federal Confidentiality of Alcohol and Drug Abuse Patient Records regulations: The Federal rules restrict any use of the information to criminally investigate or prosecute any alcohol or drug abuse patient.[facility] HospitalIn the event this information is protected by the Federal Confidentiality of Alcohol and Drug Abuse Patient Records regulations: The Federal rules restrict any use of the information to criminally investigate or prosecute any alcohol or drug abuse patient.[facility] HospitalIn the event this information is protected by the Federal Confidentiality of Alcohol and Drug Abuse Patient Records regulations: The Federal rules restrict any use of the information to criminally investigate or prosecute any alcohol or drug abuse patient.[facility] HospitalIn the event this information is protected by the Federal Confidentiality of Alcohol and Drug Abuse Patient Records regulations: The Federal rules restrict any use of the information to criminally investigate or prosecute any alcohol or drug abuse patient.[facility] HospitalIn the event this information is protected by the Federal Confidentiality of Alcohol and Drug Abuse Patient Records regulations: The Federal rules restrict any use of the information to criminally investigate or prosecute any alcohol or drug abuse patient.[facility] HospitalIn the event this information is protected by the Federal Confidentiality of Alcohol and Drug Abuse Patient Records regulations: The Federal rules restrict any use of the information to criminally investigate or prosecute any alcohol or drug abuse patient.[facility] HospitalIn the event this information is protected by the Federal Confidentiality of Alcohol and Drug Abuse Patient Records regulations: The Federal rules restrict any use of the information to criminally investigate or prosecute any alcohol or drug abuse patient.[facility] HospitalIn the event this information is protected by the Federal Confidentiality of Alcohol and Drug Abuse Patient Records regulations: The Federal rules restrict any use of the information to criminally investigate or prosecute any alcohol or drug abuse patient.[facility] HospitalIn the event this information is protected by the Federal Confidentiality of Alcohol and Drug Abuse Patient Records regulations: The Federal rules restrict any use of the information to criminally investigate or prosecute any alcohol or drug abuse patient.[facility] HospitalIn the event this information is protected by the Federal Confidentiality of Alcohol and Drug Abuse Patient Records regulations: The Federal rules restrict any use of the information to criminally investigate or prosecute any alcohol or drug abuse patient.[facility] HospitalIn the event this information is protected by the Federal Confidentiality of Alcohol and Drug Abuse Patient Records regulations: The Federal rules restrict any use of the information to criminally investigate or prosecute any alcohol or drug abuse patient.[facility] HospitalIn the event this information is protected by the Federal Confidentiality of Alcohol and Drug Abuse Patient Records regulations: The Federal rules restrict any use of the information to criminally investigate or prosecute any alcohol or drug abuse patient.[facility] HospitalIn the event this information is protected by the Federal Confidentiality of Alcohol and Drug Abuse Patient Records regulations: The Federal rules restrict any use of the information to criminally investigate or prosecute any alcohol or drug abuse patient.[facility] HospitalIn the event this information is protected by the Federal Confidentiality of Alcohol and Drug Abuse Patient Records regulations: The Federal rules restrict any use of the information to criminally investigate or prosecute any alcohol or drug abuse patient.[facility] HospitalIn the event this information is protected by the Federal Confidentiality of Alcohol and Drug Abuse Patient Records regulations: The Federal rules restrict any use of the information to criminally investigate or prosecute any alcohol or drug abuse patient.[facility] HospitalIn the event this information is protected by the Federal Confidentiality of Alcohol and Drug Abuse Patient Records regulations: The Federal rules restrict any use of the information to criminally investigate or prosecute any alcohol or drug abuse patient.[facility] HospitalIn the event this information is protected by the Federal Confidentiality of Alcohol and Drug Abuse Patient Records regulations: The Federal rules restrict any use of the information to criminally investigate or prosecute any alcohol or drug abuse patient.[facility] HospitalIn the event this information is protected by the Federal Confidentiality of Alcohol and Drug Abuse Patient Records regulations: The Federal rules restrict any use of the information to criminally investigate or prosecute any alcohol or drug abuse patient.[facility] HospitalIn the event this information is protected by the Federal Confidentiality of Alcohol and Drug Abuse Patient Records regulations: The Federal rules restrict any use of the information to criminally investigate or prosecute any alcohol or drug abuse patient.[facility] HospitalIn the event this information is protected by the Federal Confidentiality of Alcohol and Drug Abuse Patient Records regulations: The Federal rules restrict any use of the information to criminally investigate or prosecute any alcohol or drug abuse patient.[facility] HospitalIn the event this information is protected by the Federal Confidentiality of Alcohol and Drug Abuse Patient Records regulations: The Federal rules restrict any use of the information to criminally investigate or prosecute any alcohol or drug abuse patient.[facility] HospitalIn the event this information is protected by the Federal Confidentiality of Alcohol and Drug Abuse Patient Records regulations: The Federal rules restrict any use of the information to criminally investigate or prosecute any alcohol or drug abuse patient.[facility] HospitalIn the event this information is protected by the Federal Confidentiality of Alcohol and Drug Abuse Patient Records regulations: The Federal rules restrict any use of the information to criminally investigate or prosecute any alcohol or drug abuse patient.[facility] HospitalIn the event this information is protected by the Federal Confidentiality of Alcohol and Drug Abuse Patient Records regulations: The Federal rules restrict any use of the information to criminally investigate or prosecute any alcohol or drug abuse patient.[facility] HospitalIn the event this information is protected by the Federal Confidentiality of Alcohol and Drug Abuse Patient Records regulations: The Federal rules restrict any use of the information to criminally investigate or prosecute any alcohol or drug abuse patient.[facility] HospitalIn the event this information is protected by the Federal Confidentiality of Alcohol and Drug Abuse Patient Records regulations: The Federal rules restrict any use of the information to criminally investigate or prosecute any alcohol or drug abuse patient.[facility] HospitalIn the event this information is protected by the Federal Confidentiality of Alcohol and Drug Abuse Patient Records regulations: The Federal rules restrict any use of the information to criminally investigate or prosecute any alcohol or drug abuse patient.[facility] HospitalIn the event this information is protected by the Federal Confidentiality of Alcohol and Drug Abuse Patient Records regulations: The Federal rules restrict any use of the information to criminally investigate or prosecute any alcohol or drug abuse patient.[facility] HospitalIn the event this information is protected by the Federal Confidentiality of Alcohol and Drug Abuse Patient Records regulations: The Federal rules restrict any use of the information to criminally investigate or prosecute any alcohol or drug abuse patient.[facility] HospitalIn the event this information is protected by the Federal Confidentiality of Alcohol and Drug Abuse Patient Records regulations: The Federal rules restrict any use of the information to criminally investigate or prosecute any alcohol or drug abuse patient.[facility] HospitalIn the event this information is protected by the Federal Confidentiality of Alcohol and Drug Abuse Patient Records regulations: The Federal rules restrict any use of the information to criminally investigate or prosecute any alcohol or drug abuse patient.[facility] HospitalIn the event this information is protected by the Federal Confidentiality of Alcohol and Drug Abuse Patient Records regulations: The Federal rules restrict any use of the information to criminally investigate or prosecute any alcohol or drug abuse patient.[facility] HospitalIn the event this information is protected by the Federal Confidentiality of Alcohol and Drug Abuse Patient Records regulations: The Federal rules restrict any use of the information to criminally investigate or prosecute any alcohol or drug abuse patient.[facility] HospitalIn the event this information is protected by the Federal Confidentiality of Alcohol and Drug Abuse Patient Records regulations: The Federal rules restrict any use of the information to criminally investigate or prosecute any alcohol or drug abuse patient.[facility] HospitalIn the event this information is protected by the Federal Confidentiality of Alcohol and Drug Abuse Patient Records regulations: The Federal rules restrict any use of the information to criminally investigate or prosecute any alcohol or drug abuse patient.[facility] HospitalIn the event this information is protected by the Federal Confidentiality of Alcohol and Drug Abuse Patient Records regulations: The Federal rules restrict any use of the information to criminally investigate or prosecute any alcohol or drug abuse patient.[facility] HospitalIn the event this information is protected by the Federal Confidentiality of Alcohol and Drug Abuse Patient Records regulations: The Federal rules restrict any use of the information to criminally investigate or prosecute any alcohol or drug abuse patient.[facility] HospitalIn the event this information is protected by the Federal Confidentiality of Alcohol and Drug Abuse Patient Records regulations: The Federal rules restrict any use of the information to criminally investigate or prosecute any alcohol or drug abuse patient.[facility] HospitalIn the event this information is protected by the Federal Confidentiality of Alcohol and Drug Abuse Patient Records regulations: The Federal rules restrict any use of the information to criminally investigate or prosecute any alcohol or drug abuse patient.[facility] HospitalIn the event this information is protected by the Federal Confidentiality of Alcohol and Drug Abuse Patient Records regulations: The Federal rules restrict any use of the information to criminally investigate or prosecute any alcohol or drug abuse patient.[facility] HospitalIn the event this information is protected by the Federal Confidentiality of Alcohol and Drug Abuse Patient Records regulations: The Federal rules restrict any use of the information to criminally investigate or prosecute any alcohol or drug abuse patient.[facility] HospitalIn the event this information is protected by the Federal Confidentiality of Alcohol and Drug Abuse Patient Records regulations: The Federal rules restrict any use of the information to criminally investigate or prosecute any alcohol or drug abuse patient.[facility] HospitalIn the event this information is protected by the Federal Confidentiality of Alcohol and Drug Abuse Patient Records regulations: The Federal rules restrict any use of the information to criminally investigate or prosecute any alcohol or drug abuse patient.[facility] HospitalIn the event this information is protected by the Federal Confidentiality of Alcohol and Drug Abuse Patient Records regulations: The Federal rules restrict any use of the information to criminally investigate or prosecute any alcohol or drug abuse patient.[facility] HospitalIn the event this information is protected by the Federal Confidentiality of Alcohol and Drug Abuse Patient Records regulations: The Federal rules restrict any use of the information to criminally investigate or prosecute any alcohol or drug abuse patient.[facility] HospitalIn the event this information is protected by the Federal Confidentiality of Alcohol and Drug Abuse Patient Records regulations: The Federal rules restrict any use of the information to criminally investigate or prosecute any alcohol or drug abuse patient.[facility] HospitalIn the event this information is protected by the Federal Confidentiality of Alcohol and Drug Abuse Patient Records regulations: The Federal rules restrict any use of the information to criminally investigate or prosecute any alcohol or drug abuse patient.[facility] HospitalIn the event this information is protected by the Federal Confidentiality of Alcohol and Drug Abuse Patient Records regulations: The Federal rules restrict any use of the information to criminally investigate or prosecute any alcohol or drug abuse patient.[facility] HospitalIn the event this information is protected by the Federal Confidentiality of Alcohol and Drug Abuse Patient Records regulations: The Federal rules restrict any use of the information to criminally investigate or prosecute any alcohol or drug abuse patient.[facility] HospitalIn the event this information is protected by the Federal Confidentiality of Alcohol and Drug Abuse Patient Records regulations: The Federal rules restrict any use of the information to criminally investigate or prosecute any alcohol or drug abuse patient.[facility] HospitalIn the event this information is protected by the Federal Confidentiality of Alcohol and Drug Abuse Patient Records regulations: The Federal rules restrict any use of the information to criminally investigate or prosecute any alcohol or drug abuse patient.[facility] HospitalIn the event this information is protected by the Federal Confidentiality of Alcohol and Drug Abuse Patient Records regulations: The Federal rules restrict any use of the information to criminally investigate or prosecute any alcohol or drug abuse patient.[facility] HospitalIn the event this information is protected by the Federal Confidentiality of Alcohol and Drug Abuse Patient Records regulations: The Federal rules restrict any use of the information to criminally investigate or prosecute any alcohol or drug abuse patient.[facility] HospitalIn the event this information is protected by the Federal Confidentiality of Alcohol and Drug Abuse Patient Records regulations: The Federal rules restrict any use of the information to criminally investigate or prosecute any alcohol or drug abuse patient.[facility] HospitalIn the event this information is protected by the Federal Confidentiality of Alcohol and Drug Abuse Patient Records regulations: The Federal rules restrict any use of the information to criminally investigate or prosecute any alcohol or drug abuse patient.[facility] HospitalIn the event this information is protected by the Federal Confidentiality of Alcohol and Drug Abuse Patient Records regulations: The Federal rules restrict any use of the information to criminally investigate or prosecute any alcohol or drug abuse patient.[facility] HospitalIn the event this information is protected by the Federal Confidentiality of Alcohol and Drug Abuse Patient Records regulations: The Federal rules restrict any use of the information to criminally investigate or prosecute any alcohol or drug abuse patient.[facility] HospitalIn the event this information is protected by the Federal Confidentiality of Alcohol and Drug Abuse Patient Records regulations: The Federal rules restrict any use of the information to criminally investigate or prosecute any alcohol or drug abuse patient.[facility] HospitalIn the event this information is protected by the Federal Confidentiality of Alcohol and Drug Abuse Patient Records regulations: The Federal rules restrict any use of the information to criminally investigate or prosecute any alcohol or drug abuse patient.[facility] HospitalIn the event this information is protected by the Federal Confidentiality of Alcohol and Drug Abuse Patient Records regulations: The Federal rules restrict any use of the information to criminally investigate or prosecute any alcohol or drug abuse patient.[facility] HospitalIn the event this information is protected by the Federal Confidentiality of Alcohol and Drug Abuse Patient Records regulations: The Federal rules restrict any use of the information to criminally investigate or prosecute any alcohol or drug abuse patient.[facility] HospitalIn the event this information is protected by the Federal Confidentiality of Alcohol and Drug Abuse Patient Records regulations: The Federal rules restrict any use of the information to criminally investigate or prosecute any alcohol or drug abuse patient.[facility] HospitalIn the event this information is protected by the Federal Confidentiality of Alcohol and Drug Abuse Patient Records regulations: The Federal rules restrict any use of the information to criminally investigate or prosecute any alcohol or drug abuse patient.[facility] HospitalIn the event this information is protected by the Federal Confidentiality of Alcohol and Drug Abuse Patient Records regulations: The Federal rules restrict any use of the information to criminally investigate or prosecute any alcohol or drug abuse patient.[facility] HospitalIn the event this information is protected by the Federal Confidentiality of Alcohol and Drug Abuse Patient Records regulations: The Federal rules restrict any use of the information to criminally investigate or prosecute any alcohol or drug abuse patient.[facility] HospitalIn the event this information is protected by the Federal Confidentiality of Alcohol and Drug Abuse Patient Records regulations: The Federal rules restrict any use of the information to criminally investigate or prosecute any alcohol or drug abuse patient.[facility] HospitalIn the event this information is protected by the Federal Confidentiality of Alcohol and Drug Abuse Patient Records regulations: The Federal rules restrict any use of the information to criminally investigate or prosecute any alcohol or drug abuse patient.[facility] HospitalIn the event this information is protected by the Federal Confidentiality of Alcohol and Drug Abuse Patient Records regulations: The Federal rules restrict any use of the information to criminally investigate or prosecute any alcohol or drug abuse patient.[facility] HospitalIn the event this information is protected by the Federal Confidentiality of Alcohol and Drug Abuse Patient Records regulations: The Federal rules restrict any use of the information to criminally investigate or prosecute any alcohol or drug abuse patient.[facility] HospitalIn the event this information is protected by the Federal Confidentiality of Alcohol and Drug Abuse Patient Records regulations: The Federal rules restrict any use of the information to criminally investigate or prosecute any alcohol or drug abuse patient.[facility] HospitalIn the event this information is protected by the Federal Confidentiality of Alcohol and Drug Abuse Patient Records regulations: The Federal rules restrict any use of the information to criminally investigate or prosecute any alcohol or drug abuse patient.[facility] HospitalIn the event this information is protected by the Federal Confidentiality of Alcohol and Drug Abuse Patient Records regulations: The Federal rules restrict any use of the information to criminally investigate or prosecute any alcohol or drug abuse patient.[facility] HospitalIn the event this information is protected by the Federal Confidentiality of Alcohol and Drug Abuse Patient Records regulations: The Federal rules restrict any use of the information to criminally investigate or prosecute any alcohol or drug abuse patient.[facility] HospitalIn the event this information is protected by the Federal Confidentiality of Alcohol and Drug Abuse Patient Records regulations: The Federal rules restrict any use of the information to criminally investigate or prosecute any alcohol or drug abuse patient.[facility] HospitalIn the event this information is protected by the Federal Confidentiality of Alcohol and Drug Abuse Patient Records regulations: The Federal rules restrict any use of the information to criminally investigate or prosecute any alcohol or drug abuse patient.[facility] HospitalIn the event this information is protected by the Federal Confidentiality of Alcohol and Drug Abuse Patient Records regulations: The Federal rules restrict any use of the information to criminally investigate or prosecute any alcohol or drug abuse patient.[facility] HospitalIn the event this information is protected by the Federal Confidentiality of Alcohol and Drug Abuse Patient Records regulations: The Federal rules restrict any use of the information to criminally investigate or prosecute any alcohol or drug abuse patient.[facility] HospitalIn the event this information is protected by the Federal Confidentiality of Alcohol and Drug Abuse Patient Records regulations: The Federal rules restrict any use of the information to criminally investigate or prosecute any alcohol or drug abuse patient.[facility] HospitalIn the event this information is protected by the Federal Confidentiality of Alcohol and Drug Abuse Patient Records regulations: The Federal rules restrict any use of the information to criminally investigate or prosecute any alcohol or drug abuse patient.[facility] HospitalIn the event this information is protected by the Federal Confidentiality of Alcohol and Drug Abuse Patient Records regulations: The Federal rules restrict any use of the information to criminally investigate or prosecute any alcohol or drug abuse patient.[facility] HospitalIn the event this information is protected by the Federal Confidentiality of Alcohol and Drug Abuse Patient Records regulations: The Federal rules restrict any use of the information to criminally investigate or prosecute any alcohol or drug abuse patient.[facility] HospitalIn the event this information is protected by the Federal Confidentiality of Alcohol and Drug Abuse Patient Records regulations: The Federal rules restrict any use of the information to criminally investigate or prosecute any alcohol or drug abuse patient.[facility] HospitalIn the event this information is protected by the Federal Confidentiality of Alcohol and Drug Abuse Patient Records regulations: The Federal rules restrict any use of the information to criminally investigate or prosecute any alcohol or drug abuse patient.[facility] HospitalIn the event this information is protected by the Federal Confidentiality of Alcohol and Drug Abuse Patient Records regulations: The Federal rules restrict any use of the information to criminally investigate or prosecute any alcohol or drug abuse patient.[facility] HospitalIn the event this information is protected by the Federal Confidentiality of Alcohol and Drug Abuse Patient Records regulations: The Federal rules restrict any use of the information to criminally investigate or prosecute any alcohol or drug abuse patient.[facility] HospitalIn the event this information is protected by the Federal Confidentiality of Alcohol and Drug Abuse Patient Records regulations: The Federal rules restrict any use of the information to criminally investigate or prosecute any alcohol or drug abuse patient.[facility] HospitalIn the event this information is protected by the Federal Confidentiality of Alcohol and Drug Abuse Patient Records regulations: The Federal rules restrict any use of the information to criminally investigate or prosecute any alcohol or drug abuse patient.[facility] HospitalIn the event this information is protected by the Federal Confidentiality of Alcohol and Drug Abuse Patient Records regulations: The Federal rules restrict any use of the information to criminally investigate or prosecute any alcohol or drug abuse patient.[facility] HospitalIn the event this information is protected by the Federal Confidentiality of Alcohol and Drug Abuse Patient Records regulations: The Federal rules restrict any use of the information to criminally investigate or prosecute any alcohol or drug abuse patient.[facility] HospitalIn the event this information is protected by the Federal Confidentiality of Alcohol and Drug Abuse Patient Records regulations: The Federal rules restrict any use of the information to criminally investigate or prosecute any alcohol or drug abuse patient.[facility] HospitalIn the event this information is protected by the Federal Confidentiality of Alcohol and Drug Abuse Patient Records regulations: The Federal rules restrict any use of the information to criminally investigate or prosecute any alcohol or drug abuse patient.[facility] HospitalIn the event this information is protected by the Federal Confidentiality of Alcohol and Drug Abuse Patient Records regulations: The Federal rules restrict any use of the information to criminally investigate or prosecute any alcohol or drug abuse patient.[facility] Reason for Visit (unrecogniz ed section and content) Reason Comments PT Discharge Specialty Diagnoses / Procedures Referred By Contac t Referred To Contact [facility] Diagnoses Leg weakness, bilateral Procedures CONSULT TO PHYSICAL THERAPY PHYSICAL THERAPY EVALUATION HIGH COMPLEX 45 MINS Radha Batista, ADIEL.PRINTING MECHANIST [address] [place] [address] [facility] [address] [place] [address] Referral ID Status Reason Start Date Expiration Date Visits Requested Visits Authorized [id number] Authorized PCP Requested Referral Auto-Generate d Referral [...] STRESS/PHARM MYOCARDIAL SPECT MULTIPLE STUDIES Radha Batista APRN.PRINTING MECHANIST [address] [place] [address] [facility] [address] [place] [address] Referral ID Status Reason Start Date Expiration Date V isits Requested Visits Authorized [id number] Closed Auto-Generate d Referral 05/15/2023 10/12/2023 3 [...] Refill Request 01/29/2024 Reason Comments Insurance Authorization Lanva[employer] solostar Reason Onset Date Comments Refill Request [...] Reason Comments Information Reason Comments took another half-way patient s medica tions Reason Comments Clinical [...] REAL TIME W/IMAGE LIMITED Aleksandar Jones MD [address] [facility] [place] [address] Phone: tel: fax: [place] [address] Referral ID Status Reason Start Date Expiration Date V isits Requested Visits Authorized [id number] Closed Auto-Generate d Referral 01/18/2025 02/03/2026 1 1 Reason Comments Forms Reason Onset Date Comments Refill Request 01/25/2025 Reason Onset Date Comments Refill Request 02/18/2025 Reason Comments Letter Reason Comments Follow Up 2 month follow up- p atient went from half-way to assisted living at [facility] Reason Comments Statin Recommendation Reason Comments Cardiac Clearance Care Teams (unrecognized sec tion and content) 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 Relationship Specialty Start Date End Date Aleksandar Jones MD [address] [facility] [place], [place] [id number] PCP - General Family Practice 12/26/14 Koby Ramirez V [address] [place] [phone] Internal Medicine 07/22/18 Yolie Mars Other 05/30/14 Fpc 12/18/17 clark marr DME 10/25/19 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 Relationship Specialty Start Date End Date Aleksandar Jones MD [address] [facility] [place], [place] [address] PCP - General Family Practice 12/26/14 Koby Ramirez V [address] [place] [address] Internal Medicine 07/22/18 Yolie Mars Other 05/30/14 Fpc 12/18/17 clark marr DME 10/25/19 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 Relationship Specialty Start Date End Date Aleksandar Jones MD [address] [facility] [place], [place] [id number] PCP - General Family Practice 12/26/14 Koby Ramirez V [address] [place] [address] Internal Medicine 07/22/18 Yolie Mars Other 05/30/14 Fpc 12/18/17 corner stone DME 10/25/19 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 Relationship Specialty Start Date End Date Aleksandar Jones MD [address] [facility] [place] [address] PCP - General Family Practice 12/26/14 Koby Ramirez V [address] [place] [address] Internal Medicine 07/22/18 Yolie Mars Other 05/30/14 Fpc 12/18/17 corner stone DME 10/25/19 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 Relationship Specialty Start Date End Date Aleksandar Jones MD [address] [facility] [place] [address] PCP - General Family Practice 12/26/14 Koby Ramirez V [address] [place] [phone] Internal Medicine 07/22/18 Yolie Mars Other 05/30/14 Fpc 12/18/17 corner stone DME 10/25/19 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 Relationship Specialty Start Date End Date Aleksandar Jones MD [address] [facility] [place] [address] PCP - General Family Practice 12/26/14 Koby Ramirez V [address] [place] [address] Internal Medicine 07/22/18 Yolie Mars Other 05/30/14 Fpc 12/18/17 corner stone DME 10/25/19 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 Relationship Specialty Start Date End Date Aleksandar Jones MD [address] [facility] [place] [address] PCP - General Family Practice 12/26/14 Koby Ramirez V [address] [place] [address] Internal Medicine 07/22/18 Yolie Mars Other 05/30/14 Fpc 12/18/17 clark stone DME 10/25/19 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 Relationship Specialty Start Date End Date Aleksandar Jones MD [address] [facility] [place] [address] PCP - General Family Medicine 12/26/14 Koby Ramirez V [address] [place] [address] Internal Medicine 07/22/18 Yolie Mars Other 05/30/14 Fpc 12/18/17 corner stone DME 10/25/19 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 Relationship Specialty Start Date End Date Aleksandar Jones MD [address] [facility] [place] [address] PCP - General Family Medicine 12/26/14 Koby Ramirez V [address] [place] [address] Internal Medicine 07/22/18 Yolie Mars Other 05/30/14 Fpc 12/18/17 clark marr DME 10/25/19 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 Relationship Specialty Start Date End Date Aleksandar Jones MD [address] [facility] [place], [place] [address] [phone] PCP - General Family Medicine 12/26/14 Koby Ramirez V [address] [place] [address] Internal Medicine 07/22/18 Yolie Mars Other 05/30/14 Fpc 12/18/17 clark marr DME 10/25/19 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 Relationship Specialty Start Date End Date Aleksandar Jones MD [address] [facility] [place] [address] PCP - General Family Medicine 12/26/14 Koby Ramirez V [address] [place] [address] Internal Medicine 07/22/18 Yolie Mars Other 05/30/14 Fpc 12/18/17 clark marr DME 10/25/19 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 Relationship Specialty Start Date End Date Aleksandar Jones MD [address] [facility] [place] [address] PCP - General Family Medicine 12/26/14 Koby Ramirez V [address] [place] [address] Internal Medicine 07/22/18 Yolie Mars Other 05/30/14 Fpc 12/18/17 clark marr DME 10/25/19 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 Relationship Specialty Start Date End Date Aleksandar Jones MD [address] [facility] [place] [address] PCP - General Family Medicine 12/26/14 Koby Ramirez V [address] [place] [address] Internal Medicine 07/22/18 Yolie Mars Other 05/30/14 Fpc 12/18/17 clark marr DME 10/25/19 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 Relationship Specialty Start Date End Date Aleksandar Jones MD [address] [facility] [place] [address] PCP - General Family Medicine 12/26/14 Koby Ramirez V [address] [place] [address] Internal Medicine 07/22/18 Yolie Mars Other 05/30/14 Fpc 12/18/17 clark marr DME 10/25/19 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 Relationship Specialty Start Date End Date Aleksandar Jones MD [address] [facility] [place] [address] PCP - General Family Medicine 12/26/14 Koby Ramirez V [address] [place] [address] Internal Medicine 07/22/18 Yolie Mars Other 05/30/14 Fpc 12/18/17 clark marr DME 10/25/19 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 Relationship Specialty Start Date End Date Aleksandar Jones MD [address] [facility] [place], [place] [id number] PCP - General Family Medicine 12/26/14 Koby Ramirez V [address] [place] [address] Internal Medicine 07/22/18 Yolie Mars Other 05/30/14 Fpc 12/18/17 clark marr DME 10/25/19 Team Status: Active Member Role Status Dates Dr. Aleksandar Jones MD Family Provider Active Dr. Aleksandar Jones MD Primary Care Provider Active Team Status: Inactive Member Role Status Dates Dr. Aleksandar Jones MD Primary Care Provider, Family Pr ovider Active Dr. Lorraine Springer MD Attending Provider, Referring P kitty Active 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 Relationship Specialty Start Date End Date Aleksandar Jones MD [address] [place], [place] [address] PCP - General Family Medicine 12/26/14 Koby Ramirez V [address] [place] [address] Internal Medicine 07/22/18 Yolie Mars Other 05/30/14 Fpc 12/18/17 clark [place] DME 10/25/19 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 Relationship Specialty Start Date End Date Aleksandar Jones MD [address] [facility] [place] [address] PCP - General Family Medicine 12/26/14 Koby Ramirez V [address] [place] [address] Internal Medicine 07/22/18 Yolie Mars Other 05/30/14 Fpc 12/18/17 corner stone DME 10/25/19 Team Status: Inactive Member Role Status Dates Dr. Aleksandar Jones MD Primary Care Provider Active Dr. Koby Ramirez MD Attending Provider, Joan bryan Provider Active 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 Relationship Specialty Start Date End Date Aleksandar Jones MD [address] [place] [address] PCP - General Family Medicine 12/26/14 Koby Ramirez V [address] [place] [address] Internal Medicine 07/22/18 Yolie Mars Other 05/30/14 Fpc 12/18/17 clark justa DME 10/25/19 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 Relationship Specialty Start Date End Date Aleksandar Jones MD [address] [place], [place] [id number] PCP - General Family Medicine 12/26/14 Koby Ramirez V [address] [place] [address] Internal Medicine 07/22/18 Yolie Mars Other 05/30/14 Fpc 12/18/17 corner justa DME 10/25/19 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 Relationship Specialty Start Date End Date Aleksandar Jones MD [address] [place] [place] [address] PCP - General Family Medicine 12/26/14 Koby Ramirez V [address] [place] [address] Internal Medicine 07/22/18 Yolie Mars Other 05/30/14 Fpc 12/18/17 corner stone DME 10/25/19 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 Relationship Specialty Start Date End Date Aleksandar Jones MD [address] [place] [place] [address] PCP - General Family Medicine 12/26/14 Koby Ramirez V [address] [place] [address] Internal Medicine 07/22/18 Yolie Mars Other 05/30/14 Fpc 12/18/17 corner stone DME 10/25/19 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 Relationship Specialty Start Date End Date Aleksandar Jones MD [address] [place] [place] [address] PCP - General Family Medicine 12/26/14 Koby Ramirez V [address] [place] [address] Internal Medicine 07/22/18 Yolie Mars Other 05/30/14 Fpc 12/18/17 corner stone DME 10/25/19 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 Relationship Specialty Start Date End Date Aleksandar Jones MD [address] [facility] [place] [address] PCP - General Family Medicine 12/26/14 Koby Ramirez V [address] [place] [address] Internal Medicine 07/22/18 Yolie Mars Other 05/30/14 Fpc 12/18/17 clark marr DME 10/25/19 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 Relationship Specialty Start Date End Date Aleksandar Jones MD [address] [facility] [place] [address] PCP - General Family Medicine 12/26/14 Koby Ramirez V [address] [place] [address] Internal Medicine 07/22/18 Yolie Mars Other 05/30/14 [...] Dr. Hesham Noguera MD Attending Provider Active 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 Relationship Specialty Start Date End Date Aleksandar Jones MD [address] [facility] [place], [place] [address] PCP - General Family Medicine 12/26/14 Koby Ramirez V [address] [place] [address] Internal Medicine 07/22/18 Yolie Mars Other 05/30/14 Fpc 12/18/17 corner stone DME 10/25/19 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 Relationship Specialty Start Date End Date Aleksandar Jones MD [address] [facility] [place] [address] PCP - General Family Medicine 12/26/14 Koby Ramirez V [address] [place] [address] Internal Medicine 07/22/18 Yolie Mars Other 05/30/14 Fpc 12/18/17 clark stone DME 10/25/19 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 Relationship Specialty Start Date End Date Aleksandar Jones MD [address] [facility] [place] [address] PCP - General Family Medicine 12/26/14 Koby Ramirez V [address] [place] [address] Internal Medicine 07/22/18 Yolie Rodriguezi Other 05/30/14 Fpc 12/18/17 clark marr DME 10/25/19 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 Relationship Specialty Start Date End Date Aleksandar Jones MD [address] [place], [place] [address] PCP - General Family Medicine 12/26/14 Koby Ramirez V [address] [place] [address] Internal Medicine 07/22/18 Yolie Mars Other 05/30/14 Fpc 12/18/17 clark marr DME 10/25/19 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 Relationship Specialty Start Date End Date Aleksandar Jones MD [address] [place], [place] [address] PCP - General Family Medicine 12/26/14 Koby Ramierz V [address] [place] [address] Internal Medicine 07/22/18 Yolie Mars Other 05/30/14 [...] Lorraine Springer MD Attending Provider, Referring Sydney juan carlosfiordaliza Active 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 Relationship Specialty Start Date End Date Aleksandar Jones MD [address] [facility] [place] [address] PCP - General Family Medicine 12/26/14 Koby Ramirez V [address] [place] [phone] Internal Medicine 07/22/18 Yolie Mars Other 05/30/14 Fpc 12/18/17 clark marr DME 10/25/19 Team Status: Inactive Member Role Status Dates Dr. Aleksandar Jones MD Primary Care Provider Active Dr. Jey Quesada DO Emergency Provider Active Team Status: Inactive Member Role Status Dates Dr. Aleksandar Jones MD Primary Care Provider Active Dr. Jey Quesada DO Attending Provider, Emergency Provider Active 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 Relationship Specialty Start Date End Date Aleksandar Jones MD [address] [facility] [place] [address] PCP - General Family Medicine 12/26/14 Koby Ramirez V [address] [place] [address] Internal Medicine 07/22/18 Yolie Mars Other 05/30/14 Fpc 12/18/17 clark marr DME 10/25/19 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 Relationship Specialty Start Date End Date Aleksandar Jones MD [address] [facility] [place] [address] PCP - General Family Medicine 12/26/14 Koby Ramirez V [address] [place] [address] Internal Medicine 07/22/18 Yolie Mars Other 05/30/14 Fpc 12/18/17 corner stone DME 10/25/19 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 Relationship Specialty Start Date End Date Aleksandar Jones MD [address] [place], [place] [address] PCP - General Family Medicine 12/26/14 Koby Ramirez V [address] [place] [address] Internal Medicine 07/22/18 Yolie Mars Other 05/30/14 Fpc 12/18/17 corner stone DME 10/25/19 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 Relationship Specialty Start Date End Date Aleksandar Jones MD [address] [place] [place] [address] PCP - General Family Medicine 12/26/14 Koby Ramirez V [address] [place] [address] Internal Medicine 07/22/18 Yolie Mars Other 05/30/14 Fpc 12/18/17 corner stone DME 10/25/19 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 Relationship Specialty Start Date End Date Aleksandar Jones MD [address] [place] [place] [address] PCP - General Family Medicine 12/26/14 Koby Ramirez V [address] [place] [address] Internal Medicine 07/22/18 Yolie Mars Other 05/30/14 Fpc 12/18/17 corner stone DME 10/25/19 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 Relationship Specialty Start Date End Date Aleksandar Jones MD [address] [place], [place] [address] PCP - General Family Medicine 12/26/14 Koby Ramirez V [address] [place] [address] Internal Medicine 07/22/18 Yolie Mars Other 05/30/14 Fpc 12/18/17 corner stone DME 10/25/19 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 Relationship Specialty Start Date End Date Aleksandar Jones MD [address] [place] [place] [place] [address] PCP - General Family Medicine 12/26/14 Koby Ramirez V [address] [place] [address] Internal Medicine 07/22/18 Yolie Mars Other 05/30/14 Fpc 12/18/17 corner stone DME 10/25/19 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 Relationship Specialty Start Date End Date Aleksandar Jones MD [address] [place] [place] [address] PCP - General Family Medicine 12/26/14 Koby Ramirez V [address] [place] [address] Internal Medicine 07/22/18 Yolie Mars Other 05/30/14 Fpc 12/18/17 corner stone DME 10/25/19 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 Relationship Specialty Start Date End Date Aleksandar Jones MD [address] [place] [address] PCP - General Family Medicine 12/26/14 Koby Ramirez V [address] [place] [address] Internal Medicine 07/22/18 Yolie Mars Other 05/30/14 Fpc 12/18/17 corner stone DME 10/25/19 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 Relationship Specialty Start Date End Date Aleksandar Jones MD [address] [place] [address] PCP - General Family Medicine 12/26/14 Koby Ramirez V [address] [place] [address] Internal Medicine 07/22/18 Yolie Mars Other 05/30/14 Fpc 12/18/17 corner stone DME 10/25/19 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 Relationship Specialty Start Date End Date Aleksandar Jones MD [address] [place], [place] [address] PCP - General Family Medicine 12/26/14 Koby Ramirez V [address] [place] [address] Internal Medicine 07/22/18 Yolie Mars Other 05/30/14 Fpc 12/18/17 clark marr DME 10/25/19 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 Relationship Specialty Start Date End Date Aleksandar Jones MD [address] [place] [place] [place] [address] PCP - General Family Medicine 12/26/14 Koby Ramirez V [address] [place] [address] Internal Medicine 07/22/18 Yolie Mars Other 05/30/14 Fpc 12/18/17 clark marr DME 10/25/19 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 Relationship Specialty Start Date End Date Aleksandar Jones MD [address] [place] [place] [address] PCP - General Family Medicine 12/26/14 Koby Ramirez V [address] [place] [address] Internal Medicine 07/22/18 Yolie Mars Other 05/30/14 Fpc 12/18/17 clark marr DME 10/25/19 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 Relationship Specialty Start Date End Date Aleksandar Jones MD [address] [place], [place] [address] PCP - General Family Medicine 12/26/14 Koby Ramirez V [address] [place] [address] Internal Medicine 07/22/18 Yolie Mars Other 05/30/14 Fpc 12/18/17 clark marr DME 10/25/19 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 Relationship Specialty Start Date End Date Aleksandar Jones MD [address] [place], [place] [address] PCP - General Family Medicine 12/26/14 Koby Ramirez V [address] [place] [address] Internal Medicine 07/22/18 Yolie Mars Other 05/30/14 Fpc 12/18/17 clark marr DME 10/25/19 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 Relationship Specialty Start Date End Date Aleksandar Jones MD [address] [place] [place] [place] [address] PCP - General Family Medicine 12/26/14 Koby Ramirez V [address] [place] [address] Internal Medicine 07/22/18 Yolie Mars Other 05/30/14 Fpc 12/18/17 corner stone DME 10/25/19 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 Relationship Specialty Start Date End Date Aleksandar Jones MD [address] [place], [place] [address] PCP - General Family Medicine 12/26/14 Koby Ramirez V [address] [place] [address] Internal Medicine 07/22/18 Yolie Mars Other 05/30/14 Fpc 12/18/17 corner stone DME 10/25/19 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 Relationship Specialty Start Date End Date Aleksandar Jones MD [address] [place], [place] [address] PCP - General Family Medicine 12/26/14 Koby Ramirez V [address] [place] [address] Internal Medicine 07/22/18 Yolie Mars Other 05/30/14 Fpc 12/18/17 corner stone DME 10/25/19 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 Relationship Specialty Start Date End Date Aleksandar Jonse MD [address] [place] [place] [address] PCP - General Family Medicine 12/26/14 Koby Ramirez V [address] [place] [address] Internal Medicine 07/22/18 Yolie Mars Other 05/30/14 Fpc 12/18/17 corner justa DME 10/25/19 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 Relationship Specialty Start Date End Date Aleksandar Jones MD [address] [facility] [place] [id number] PCP - General Family Medicine 12/26/14 Koby Ramirez V [address] [place] [address] Internal Medicine 07/22/18 Yolie Mars Other 05/30/14 Fpc 12/18/17 clark marr DME 10/25/19 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 Relationship Specialty Start Date End Date Aleksandar Jones MD [address] [facility] [place] [address] PCP - General Family Medicine 12/26/14 Koby Ramirez V [address] [place] [address] Internal Medicine 07/22/18 Kaitlyn Sanders [facility] [address] [facility] [place] [address] Pharmacist Pharmacy 08/31/20 10/17/21 Yolie Mars Other 05/30/14 Fpc 12/18/17 clark marr DME 10/25/19 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 Relationship Specialty Start Date End Date Aleksandar Jones MD [address] [place] [place] [place] [address] PCP - General Family Medicine 12/26/14 Koby Ramirez [address] [place] [address] Internal Medicine 07/22/18 [facility] [address] [place] [address] Pharmacist Pharmacy 08/31/20 10/17/21 Yolie Mars Other 05/30/14 Fpc 12/18/17 clark marr DME 10/25/19 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 Relationship Specialty Start Date End Date Aleksandar Jones MD [address] [place] [place] [place] [address] PCP - General Family Medicine 12/26/14 Koby Ramirez V [address] [place] [address] Internal Medicine 07/22/18 Yolie Mars Other 05/30/14 Fpc 12/18/17 clark marr DME 10/25/19 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 Relationship Specialty Start Date End Date Aleksandar Jones MD [address] [place], [place] [address] PCP - General Family Medicine 12/26/14 Koby Ramirez V [address] [place] [address] Internal Medicine 07/22/18 Yolie Mars Other 05/30/14 Fpc 12/18/17 clark marr DME 10/25/19 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 Relationship Specialty Start Date End Date Aleksandar Jones MD [address] [place], [place] [address]41 PCP - General Family Medicine 12/26/14 Koby Ramirez V [address] [place] [address] Internal Medicine 07/22/18 Yolie Mars Other 05/30/14 Fpc 12/18/17 clark marr DME 10/25/19 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 Relationship Specialty Start Date End Date Aleksandar Jones MD [address] [place] [address] PCP - General Family Medicine 12/26/14 Koby Ramirez [place] [address] [place] [address] Internal Medicine 07/22/18 Radha Batista APRN.PRINTING MECHANIST [address] [place] [address] Reproductive Endocrinologist Family Medicine 09/20/24 Shelia Salmon APRN.PRINTING MECHANIST [address] [place] [address] Reproductive Endocrinologist Family Medicine 09/20/24 Yolie Mars Other 8/18/14 Fpc 12/18/17 clark marr DME 10/25/19 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 Relationship Specialty Start Date End Date Aleksandar Jones MD [address] [place], [place] [address] PCP - General Family Medicine 12/26/14 Koby Ramirez [address] [place] [phone] Internal Medicine 07/22/18 Radha Batista APRN.PRINTING MECHANIST [address] [place] [address] Reproductive Endocrinologist Family Medicine 09/20/24 Shelia Salmon APRN.PRINTING MECHANIST [address] [place] [address] Reproductive Endocrinologist Family Medicine 09/20/24 Yolie Lexiarturo Other 05/30/14 Fpc 12/18/17 clark marr DME 10/25/19 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 Relationship Specialty Start Date End Date Aleksandar Jones MD [address] [place] [address] PCP - General Family Medicine 12/26/14 Koby Ramirez V [address] [place] [phone] Internal Medicine 07/22/18 Radha Batista, PLOW MECHANIC.PRINTING MECHANIST [address] [place] [address] Reproductive Endocrinologist Family Medicine 09/20/24 Shelia Salmon, PLOW MECHANIC.PRINTING MECHANIST [address] [place] [address] Reproductive Endocrinologist Family Medicine 09/20/24 Yolie Mars Other 05/30/14 Fpc 12/18/17 corner stone DME 10/25/19 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 Relationship Specialty Start Date End Date Aleksandar Jones MD [address] [place] [address] PCP - General Family Medicine 12/26/14 Koby Ramirez V [address] [place] [phone] Internal Medicine 07/22/18 Radha Batista, PLOW MECHANIC.PRINTING MECHANIST [address] [place] [address] Reproductive Endocrinologist Family Medicine 09/20/24 Shelia Salmon, PLOW MECHANIC.PRINTING MECHANIST [address] [place] [place] [address] Reproductive Endocrinologist Family Medicine 09/20/24 Yolie Mars Other 05/30/14 Fpc 12/18/17 [employer] 10/25/19 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 Relationship Specialty Start Date End Date Aleksandar Jones MD [address] [place] [address] PCP - General Family Medicine 12/26/14 Koby Ramirez V [address] [place] [phone] Internal Medicine 07/22/18 Radha Batista, ADIEL.PRINTING MECHANIST [address] [place] [address] Reproductive Endocrinologist Family Medicine 09/20/24 Shelia Salmon APRN.PRINTING MECHANIST [address] [place] [address] Reproductive Endocrinologist Family Medicine 09/20/24 Yolie Mars Other 05/30/14 Fpc 12/18/17 clark marr DME 10/25/19 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 Relationship Specialty Start Date End Date Aleksandar Jones MD [address] [facility] [place] [address] PCP - General Family Medicine 12/26/14 Koby Ramirez V [address] [place] [phone] Internal Medicine 07/22/18 Radha Batista, PLOW MECHANIC.PRINTING MECHANIST [address] [place] [place] [address] Reproductive Endocrinologist Family Medicine 09/20/24 Shelia Salmon PLOW MECHANIC.PRINTING MECHANIST [address] [place] [address] Reproductive Endocrinologist Family Medicine 09/20/24 Yolie Mars Other 05/30/14 Fpc 12/18/17 clark marr DME 10/25/19 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 Relationship Specialty Start Date End Date Aleksandar Jones MD [address] [place], [place] [address] PCP - General Family Medicine 12/26/14 Koby Ramirez V [address] [place] [address] Internal Medicine 07/22/18 Radha Batista APRN.PRINTING MECHANIST [address] [place] [address] Reproductive Endocrinologist Family Medicine 09/20/24 Shelia Salmon APRN.PRINTING MECHANIST [address] [place] [address] Reproductive Endocrinologist Family Medicine 09/20/24 Yolie Mars Other 05/30/14 Fpc 12/18/17 [facility] 10/25/19 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 Relationship Specialty Start Date End Date Aleksandar Jones MD [address] [place] [address] PCP - General Family Medicine 12/26/14 Koby Ramirez V [address] [place] [phone] Internal Medicine 07/22/18 Radha Batista APRN.PRINTING MECHANIST [address] [place] [place] [address] Reproductive Endocrinologist Family [facility] 09/20/24 Shelia Salmon APRN.PRINTING MECHANIST [address] [place] [address] Reproductive Endocrinologist Family Medicine 09/20/24 Yolie Elliottarturo Other 05/30/14 Fpc 12/18/17 clark marr DME 10/25/19 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 Relationship Specialty Start Date End Date Aleksandar Jones MD [address] [place], [place] [address] PCP - General Family Medicine 12/26/14 Koby Ramirez V [address] [place] [phone] Internal Medicine 07/22/18 Radha Batista APRN.PRINTING MECHANIST [address] [facility] [place] [address] Reproductive Endocrinologist Family Medicine 09/20/24 Shelia Salmon PLOW MECHANIC.PRINTING MECHANIST [address] [facility] [place] [address] Reproductive Endocrinologist Family Medicine 09/20/24 Yolie Elliottarturo Other 05/30/14 Fpc 12/18/17 clark justa DME 10/25/19 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 Relationship Specialty Start Date End Date Aleksandar Jones MD [address] [place] [address] PCP - General Family Medicine 12/26/14 Koby Ramirez V [address] [place] [phone] Internal Medicine 07/22/18 Radha Batista PLOW MECHANIC.PRINTING MECHANIST [address] [place] [address] Reproductive Endocrinologist Family Medicine 09/20/24 Shelia Salmon APRN.PRINTING MECHANIST [address] [place] [address] Reproductive Endocrinologist Family Medicine 09/20/24 Yolie Mars Other 05/30/14 Fpc 12/18/17 [employer] 10/25/19 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 Relationship Specialty Start Date End Date Aleksandar Jones MD [address] [place] [place] [address] PCP - General Family Medicine 12/26/14 Koby Ramirez [place] [address] [place] [address] Internal Medicine 07/22/18 Radha Batista APRN.PRINTING MECHANIST [address] [place] [place] [address] Reproductive Endocrinologist Family Medicine 09/20/24 Shelia Salmon PLOW MECHANIC.PRINTING MECHANIST [address] [place] [address] Reproductive Endocrinologist Family Medicine 09/20/24 Yolie Mars Other 05/30/14 Fpc 12/18/17 [facility] 10/25/19 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 Relationship Specialty Start Date End Date Aleksandar Jones MD [address] [place], [place] [address] PCP - General Family Medicine 12/26/14 Koby Ramirez V [address] [place] [phone] Internal Medicine 07/22/18 Radha Batista APRN.PRINTING MECHANIST [address] [place] [place] [address] Reproductive Endocrinologist Family Medicine 09/20/24 Shelia Salmon APRN.PRINTING MECHANIST [address] [place] [address] Reproductive Endocrinologist Family Medicine 09/20/24 Yolie Mars Other 05/30/14 Fpc 12/18/17 [facility] 10/25/19 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 Relationship Specialty Start Date End Date Aleksandar Jones MD [address] [place] [address] PCP - General Family Medicine 12/26/14 Koby Ramirez V [address] [place] [phone] Internal Medicine 07/22/18 Radha Batista, PLOW MECHANIC.PRINTING MECHANIST [address] [place] [place] [address] Reproductive Endocrinologist Family Medicine 09/20/24 Shelia Salmon APRN.PRINTING MECHANIST [address] [place] [address] Reproductive Endocrinologist Family Medicine 09/20/24 Yolie Mars Other 05/30/14 Fpc 12/18/17 [facility]ark [facility] D[employer] 10/25/19 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 Relationship Specialty Start Date End Date Aleksandar Jones MD [address] [place] [address] PCP - General Family Medicine 12/26/14 Koby Ramirez V [address] [place] [phone] Internal Medicine 07/22/18 Radha Batista APRN.PRINTING MECHANIST [address] [place] [place] [address] Reproductive Endocrinologist Family Medicine 09/20/24 Shelia Salmon APRN.PRINTING MECHANIST [address] [place] [address] Reproductive Endocrinologist Family Medicine 09/20/24 Yolie Mars Other 05/30/14 Fpc 12/18/17 clark [facility] D[employer] 10/25/19 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 Relationship Specialty Start Date End Date Aleksandar Jones MD [address] [place] [address] PCP - General Family Medicine 12/26/14 Koby Ramirez V [address] [place] [phone] Internal Medicine 07/22/18 Radha Batista APRN.PRINTING MECHANIST [address] [place] [address] Reproductive Endocrinologist Family Medicine 09/20/24 Shelia Salmon PLOW MECHANIC.PRINTING MECHANIST [address] [place] [address] Reproductive Endocrinologist Family Medicine 09/20/24 Yolie Mars Other 05/30/14 Fpc 12/18/17 clark [facility] D[employer] 10/25/19 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 Relationship Specialty Start Date End Date Aleksandar Jones MD [address] [facility] [place], [place] [address] PCP - General Family Medicine 12/26/14 Koby Ramirez V [address] [facility] [place] [phone] Internal Medicine 07/22/18 Radha Batista PLOW MECHANIC.PRINTING MECHANIST [address] [place] [address] Reproductive Endocrinologist Family Medicine 09/20/24 Shelia Salmon PLOW MECHANIC.PRINTING MECHANIST [address] [facility] [place] [address] Reproductive Endocrinologist Family Medicine 09/20/24 Yolie Mars Other 05/30/14 [...] End: September 11, 2024 Shelia Suppan , MACHINE TOOL DESIGNER Primary Care Provider Active Start: August 25, [...] End: September 16, 2024 Shelia Suppan , MACHINE TOOL DESIGNER Primary Care Provider Active Start: September 16, [...] End: October 14, 2024 Shelia Suppan , MACHINE TOOL DESIGNER Primary Care Provider Active Start: October 14, 2024 End: October 14, 2024 Team Status: Inactive Member Role Status Dates Shelia Suppan , MACHINE TOOL DESIGNER Primary Care Provider Active Start: October 14, [...] Member Role Status Dates Shelia Suppan , MACHINE TOOL DESIGNER Primary Care Provider Active Start: November 09, [...] Member Role Status Dates Shelia Salmon , MACHINE TOOL DESIGNER Primary Care Provider Active Start: November 10, [...] Member Role Status Dates Shelia Salmon , MACHINE TOOL DESIGNER Primary Care Provider Active Start: November 11, [...] Member Role Status Dates Shelia Salmon , MACHINE TOOL DESIGNER Primary Care Provider Active Start: November 12, 2024 Dr. Francisco Thompson DO Emergency Provider Active Start: November 12, 2024 Dr. Hesham Amato , Admit Provider Active Start: November 12, 2024 [...] 08, 2024 End: December 10, 2024 Shelia Suppan , MACHINE TOOL DESIGNER Primary Care Provider Active Start: December 08, 2024 End: December 10, 2024 Team Status: Inactive Member Role Status Dates Shelia Salmon MACHINE TOOL DESIGNER Primary Care Provider Active Start: December 21, 2024 End: December 21, 2024 Dr. Babak Garcia DO Emergency Provider Active Start: December 21, 2024 End: December 21, 2024 Team Status: Active Member Role Status Dates Dr. Aleksandar Jones MD Family Provider Active Shelia Salmon , MACHINE TOOL DESIGNER Primary Care Provider Active Team Status: Inactive Member Role Status Dates Shelia Salmon MACHINE TOOL DESIGNER Primary Care Provider Active Start: December 21, [...] January 04, 2025 End: January 04, 2025 ESEQUIEL Headley Primary Care Provider Active Start: January 04, 2025 End: January 04, 2025 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 Relationship Specialty Start Date End Date Aleksandar Jones MD [address] [place] [address] PCP - General Family Medicine 12/26/14 Koby Ramirez V [address] [place] [address] Internal Medicine 07/22/18 Radha Batista APRN.CNP [address] [place] [address] Reproductive Endocrinologist Family Medicine 09/20/24 Shelia Salmon APRN.PRINTING MECHANIST [address] [place], [place] [address] Reproductive Endocrinologist Family Medicine 09/20/24 Yolie Jerad Other 05/30/14 Fpc 12/18/17 [facility] 10/25/19 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 Relationship Specialty Start Date End Date Aleksandar Jones MD [address] [place] [address] PCP - General Family Medicine 12/26/14 Koby Ramirez V [address] [place] [phone] Internal Medicine 07/22/18 Radha Batista APRN.PRINTING MECHANIST [address] [place] [address] Reproductive Endocrinologist Family Medicine 09/20/24 Shelia Salmon APRN.PRINTING MECHANIST [address] [place] [address] Reproductive Endocrinologist Family Medicine 09/20/24 Yolie Mars Other 05/30/14 Fpc 12/18/17 [facility] 10/25/19 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 Relationship Specialty Start Date End Date Aleksandar Jones MD [address] [place], [place] [address] PCP - General Family Medicine 12/26/14 Koby Ramirez V [address] [place] [phone] Internal Medicine 07/22/18 Radha Batista, ADIEL.PRINTING MECHANIST [address] [place] [address] Reproductive Endocrinologist Family Medicine 09/20/24 Shelia Salmon APRN.PRINTING MECHANIST [address] [place] [address] Reproductive Endocrinologist Family Medicine 09/20/24 Yolie Mars Other 05/30/14 Fpc 12/18/17 clark marr D[facility] 10/25/19 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 Relationship Specialty Start Date End Date Aleksandar Jones MD [address] [facility] [place] [address] PCP - General Family Medicine 12/26/14 Koby Ramirez V [address] [place] [place] [address] Internal Medicine 07/22/18 Radha Batista, PLOW MECHANIC.PRINTING MECHANIST [address] [place] [address] Reproductive Endocrinologist Family Medicine 09/20/24 Shelia Salmon PLOW MECHANIC.PRINTING MECHANIST [address] [place] [address] Reproductive Endocrinologist Family Medicine 09/20/24 Yolie aMrs Other 05/30/14 Fpc 12/18/17 clark marr DME 10/25/19 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 Relationship Specialty Start Date End Date Aleksandar Jones MD [address] [place] [address] PCP - General Family Medicine 12/26/14 Koby Ramirez V [address] [place] [address] Internal Medicine 07/22/18 Radha Batista APRN.PRINTING MECHANIST [address] [place] [address] Reproductive Endocrinologist Family Medicine 09/20/24 Shelia Salmon APRN.PRINTING MECHANIST [address] [place] [address] Reproductive Endocrinologist Family Medicine 09/20/24 Yolie Mars Other 05/30/14 Fpc 12/18/17 [facility] 10/25/19 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 Relationship Specialty Start Date End Date Aleksandar Jones MD [address] [place] [address] PCP - General Family Medicine 12/26/14 Koby Ramirez V [address] [place] [phone] Internal Medicine 07/22/18 Radha Batista APRN.PRINTING MECHANIST [address] [place], [place] [address] [phone] Reproductive Endocrinologist Family [facility] 09/20/24 Shelia Salmon APRN.PRINTING MECHANIST [address] [place], [place] [address] [phone] Reproductive Endocrinologist Family Medicine 09/20/24 Yolie Mars Other 05/30/14 Fpc 12/18/17 [facility]ark [facility] D[facility] 10/25/19 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 Relationship Specialty Start Date End Date Aleksandar Jones MD [address] [place], [place] [address] PCP - General Family Medicine 12/26/14 Koby Ramirez V [address] [place] [phone] Internal Medicine 07/22/18 Radha Batista, PLOW MECHANIC.PRINTING MECHANIST [address] [place] [address] Reproductive Endocrinologist Family Medicine 09/20/24 Shelia Salmon PLOW MECHANIC.PRINTING MECHANIST [address] [place] [address] Reproductive Endocrinologist Family Medicine 09/20/24 Yolie Mars Other 05/30/14 Fpc 12/18/17 [facility]ark [facility]a [facility] 10/25/19 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 Relationship Specialty Start Date End Date Aleksandar Jones MD [address] [place] [address] PCP - General Family Medicine 12/26/14 Koby Ramirez V [address] [place] [phone] Internal Medicine 07/22/18 Radha Batista, PLOW MECHANIC.PRINTING MECHANIST [address] [facility] [place] [address] Reproductive Endocrinologist Family Medicine 09/20/24 Shelia Salmon APRN.PRINTING MECHANIST [address] [facility] [address] Reproductive Endocrinologist Family Medicine 09/20/24 Yolie Mars Other 05/30/14 Fpc 12/18/17 clark marr [facility] [place]/25/19 Team Status: Active Member Role Status [...] March 01, 2025 End: March 01, 2025 [facility] Attending Provider Acti ve Start: March 01, 2025 End: March 01, 2025 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 Relationship Specialty Start Date End Date Aleksandar Jones MD [address] [facility] [place] [address] PCP - General Family Medicine 12/26/14 Koby Ramirez V [address] [facility] [place] [address] Internal Medicine 07/22/18 Radha Batista APRN.PRINTING MECHANIST [address] [facility] [place] [address] Reproductive Endocrinologist Family Medicine 09/20/24 Shelia Salmon, PLOW MECHANIC.PRINTING MECHANIST [address] [facility] [place] [address] Reproductive Endocrinologist Family Medicine 09/20/24 Yolie Mars Other 05/30/14 Fpc 12/18/17 clark [facility]r D[facility] 10/25/19 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 Relationship Specialty Start Date End Date Aleksandar Jones MD [address] [place], [place] [address] PCP - General Family Medicine 12/26/14 Koby Ramirez V [address] [place] [address] Internal Medicine 07/22/18 Radha Batista, PLOW MECHANIC.PRINTING MECHANIST [address] [place], [place] [address] Reproductive Endocrinologist Family [facility] 09/20/24 Shelia Salmon, PLOW MECHANIC.PRINTING MECHANIST [address] [place] [address] Reproductive Endocrinologist Family Medicine 09/20/24 Yolie Mars Other 05/30/14 [...] March 01, 2025 End: March 01, 2025 [facility] Attending Provider Acti ve Start: [...] Care Provider Active Start: April 26, 2025 [facility] Attending Provider Acti ve Start: [...] May 06, 2025 End: May 06, 2025 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 Relationship Specialty Start Date End Date Aleksandar Jones MD [address] [place], [place] [address] PCP - General Family Medicine 12/26/14 Koby Ramirez V [address] [facility] [place] [address] Internal Medicine 07/22/18 Radha Batista APRN.PRINTING MECHANIST [address] [place], [place] [id number] Reproductive Endocrinologist Family Medicine 09/20/24 Shelia Salmon APRN.PRINTING MECHANIST [address] [place], [place] [id number] Reproductive Endocrinologist Family Medicine 09/20/24 Yolie Mars Other 05/30/14 [facility]pc 12/18/17 [facility] 10/25/19 Team Status: Inactive Member Role/Relationship Status Dates Dr. Aleksandar Jones MD Primary Care Provider Active Start: March 01, 2025 End: March 01, 2025 [facility] Attending Provider Acti ve Start: [...] Care Provider Active Start: April 26, 2025 [facility] Attending Provider Acti ve Start: [...] Care Provider Active Start: May 24, 2025 [facility] Attending Provider Acti ve Start: [...] Provider Active Start: June 23, 2025 Dr. aBsil Velasquez DO Attending Provider Active Start: June 23, 2025 Dr. Basil Velasquez DO Other Provider Active St art: June 23, 2025 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 Relationship Specialty Start Date End Date Aleksandar Jones MD [address] [place] [address] PCP - General Family Medicine 12/26/14 Koby Ramirez V [address] [facility] [place] [address] Internal Medicine 07/22/18 Radha Batista APRN.PRINTING MECHANIST [address] [facility] [place] [address] Reproductive Endocrinologist Family Medicine 09/20/24 Shelia Salmon APRN.PRINTING MECHANIST [address] [facility] [place] [address] Reproductive Endocrinologist Family Medicine 09/20/24 Yolie Mars Other 05/30/14 [facility]pc 12/18/17 [facility] 10/25/19 Team Status: Active Member Role/Relationship Status [...] care physician Active Start: April 26, 2025 [facility] Attending physician Act damian Start: [...] care physician Active Start: May 24, 2025 [facility] Attending physician Act damian Start: [...] BE BASED ON THE PRIMARY CLINICAL RECORDS. [facility]. provides no warranty or guarantee of the accuracy or completeness of information in this document.
[2025-10-07 13:32] LABS: Hematocrit 38.7 % (37-47); Hemoglobin 12.9 g/dL (12.0-15.0); Immature Granulocytes Count 0.080 X10^3/uL (0.0-0.0); Mean Corp Hgb Conc 33.3 g/dL (32-36); Mean Corpuscular Volume 87.4 fL (81-99); Mean Platelet Vol. 9.9 fl (6.2-12.0); NRBC Flagged by Analyzer 0 % (0-5); Platelet Count 257 K/mm3 (150-450); RBC Distribution Width CV 13.8 % (11.6-14.6); RBC Distribution Width SD 44.5 fl (35.1-43.9); Red Blood Count 4.43 M/mm3 (4.2-5.4); White Blood Count 17.6 K/mm3 (4.4-11.0)
[2025-10-07] MEDS: Cefepime HCl 2 GM in 0.9% Normal Saline (100mL MB+) 100 ML IV (13:38)
[2025-10-07 13:42] LABS: Partial Thromboplast Time 38.6 Seconds (24.1-36.2); Prothrombin Time (Protime)PT. 13.2 SECONDS (11.7-14.9)
[2025-10-07 13:48] LABS: AST(SGOT) 19 U/L (<=31); Alanine Aminotransfer ALT/SGPT 28 U/L (<=34); Albumin, Serum 4.3 g/dL (3.4-4.8); Alkaline Phosphatase 98 U/L (35-104); Anion Gap 12 (7-18); BUN 8 mg/dL (4-19); BUN/Creat Ratio 19.4 RATIO (10-20); Calcium,Total 9.5 mg/dL (7.6-11.0); Carbon Dioxide 23.3 mmol/L (20.0-29.0); Chloride 93 mmol/L (96-106); Estimated Creatinine Clearance 138.46 ml/min (50-250); Globulin 3.1 g/dL (2.2-4.2); Glucose 81 mg/dL (70-99); Potassium 4.0 mmol/L (3.5-5.1)
--- NOTE | 2025-10-07 13:59 | PCA ---
CALLED [facility] @ 5993 FAXED OVER FACE SHEET AND PUSHED IMAGES UP TO THEM
[2025-10-07] MEDS: Vancomycin HCl 1,250 MG in 0.9% Normal Saline (250mL Bag) 250 ML 167 MG IV (14:03)
[2025-10-07 14:57] LABS: Mucous, Urine 0 SEEN /hpf (<or=2+); Red Blood Cells-Urine 0 SEEN /hpf (0-5); Squamous Epithelial Cells - UA 0 SEEN /hpf (5-10)
[2025-10-07 14:59] LABS: Color, Urine Straw (Yellow); Glucose, Dipstick 250 mg/dl (Normal); Ketone-Dipstick Negative (Negative); Leukocyte Esterase-Dipstick Negative /ul (Negative); Nitrite-Dipstick Negative (Negative); Occult Blood-Urine Negative /ul (Negative); Protein-Dipstick Negative (Negative); Specific Gravity, Urine 1.010 (1.002-1.030); Urine Bilirubin Dipstick Negative (Negative)
--- NOTE | 2025-10-07 17:35 | PCA ---
TALKED TO [facility] @ 4084. YAHIR THEY SAID SHE SHOULD HAVE A BED TONIGHT. THAT IS THEIR GOAL.
--- NOTE | 2025-10-07 18:58 | ED.RN ---
Spoke with Annia at [facility] to verify legal guardian. Annia states that there is a sticky note in the patient's chart stating that Mariann Rose. Left message on voicemail.
--- NOTE | 2025-10-07 19:05 | ED.RN ---
Spoke with Mariann Rose. Updated on patient status. She will fax legal guardian paperwork.
--- NOTE | 2025-10-07 21:07 | ED.RN ---
Legal guardian Mariann case. Report given to Pelon at [facility].
--- NOTE | 2025-10-07 23:50 | PCA ---
Called [facility] to set up transport. The dispatch stated their ALS crew could not take the pt on dextrose/lactated ringers. If the pt was off of them, the eta would be one hour. This litigation secretary informed dispatch the pt would stay on these until they were finished at 2240. Dispatch stated they would arrange the ride for 2240 when these were finished running. This litigation secretary called back at 2340 to see where the crew was as it was an hour past the original eta. Dispatch stated it would be an additional 90 minutes (new eta 0115.)
[2025-10-08] VITALS (8 sets, daily range): BP systolic 96–143; BP diastolic 30–67; PULSE 87–88; RESP 19; TEMP 36.4; O2SAT 94–99
--- NOTE | 2025-10-08 01:33 | ED.RN ---
Report given to EMS squad
== END 2025-10-08 01:57 | disposition other institution (70) ==
PROVIDERS: Emergency Provider Emergency Medicine; PCP Family Medicine; Visit Provider Emergency Medicine
DX: E11.649 Type 2 diabetes mellitus with hypoglycemia without coma (principal); F20.9 Schizophrenia, unspecified; J44.9 Chronic obstructive pulmonary disease, unspecified; Z79.4 Long term (current) use of insulin; I10 Essential (primary) hypertension; L03.114 Cellulitis of left upper limb; E78.5 Hyperlipidemia, unspecified; G47.33 Obstructive sleep apnea (adult) (pediatric); Z79.51 Long term (current) use of inhaled steroids; Z87.891 Personal history of nicotine dependence; Z79.82 Long term (current) use of aspirin; Z79.899 Other long term (current) drug therapy; Z79.84 Long term (current) use of oral hypoglycemic drugs
CPT/HCPCS: 73130; 80053; 81001; 82962; 83605; 85025; 85610; 85730; 87040; 87070; 87077; 87086; 87088; 87186; 87205; 93005; 96365; 96366; 96367; 96375; 96376; 99285; A4216